=== PATIENT | male | born 1960 | race Hispanic/Latino ===

== ENCOUNTER 2017-11-07 21:39 | Observation (INO) | payer OTHER ==
--- OUTSIDE RECORDS SUMMARY | 2017-11-07 21:42 | XMS REPORT | Continuity of Care Document ---
:1960 Author Organization [facility] Address [address] [place] [address] Phone Unavailable Care Team Providers Name Role Phone MONIKA HALL MD Primary Care Physician Insurance Providers Guarantor Ernie Rooney Address [address] [place] [address] Payer [facility] Policy Number [id number] Subscriber's Name Ernie Rooney Relationship 18 Self / Same As Patient Effective Date 04 Advance Directives Directive Response Recorded Date/Time Does the patient have an advance directive? No 10/24/17 12:10am If yes, is advance directive on file with [facility]? No 10/24/17 12:10am If not on file with [facility] will patient provide a copy? No 10/24/17 12:10am Do you have a Directive to Physician? No 10/23/17 12:44pm Do you have a Medical Power of Weapons Mechanic? No 10/23/17 12:44pm Do you have an out of hospital Do Not Resuscitate Order? No 10/23/17 12:44pm Do you have any special needs we should be aware of? No 10/23/17 12:44pm Do you have a support person here with you today? Yes 10/23/17 12:44pm Did patient receive Notice of Privacy Practices? Yes 10/23/17 12:44pm Did patient receive patient rights and responsibilities? Yes 10/23/17 12:44pm Problems Medical Problem Onset Date Status CAD (coronary artery disease) Unknown Chest pain 12/19/2014 Acute DKA (diabetic ketoacidoses) Unknown Hyperglycemia Unknown Hypertension Unknown Pancreatitis Unknown Uncontrolled diabetes mellitus Unknown Medications Current Home Medications Medication Dose Units Route Directions Days Qty Instructions Start Date Aspirin 81 Mg 81 Mg Oral Daily 30 Days 10/26/17 Tab.chew Clopidogrel 75 Mg Oral Daily Bisulfate (Plavix) 75 Mg Tablet Cyclobenzaprine Hcl 10 Mg Oral Three Times A (Flexeril) 5 Mg Day as needed Tablet for Muscle Spasms Doxazosin Mesylate 8 Mg Oral Daily (Cardura) 8 Mg Tablet Fenofibrate 200 Mg 200 Mg Oral Bedtime Cap Gabapentin 800 Mg 800 Mg Oral Every 12 Hours Tablet Glipizide 5 Mg 10 Mg Oral Twice A Day Tablet Hydrocodone 1 Tab Oral Every 6 Hours Bit/Acetaminophen as needed for ([place] 10-325 Pain Tablet) 1 Each Tablet Insulin Regular, 30 Three Times 3 Human (Humulin R) Daily With 100 Unit/1 Ml Vial Meals Isosorbide 60 Mg Oral Daily 30 Tab Mononitrate (Isosorbide Mononitrate Er) 30 Mg Tab.er.24h Levothyroxine 25 Mcg Oral Daily 30 Tab Sodium 50 Mcg Tablet Lisinopril 2.5 Mg 2.5 Mg Oral Daily 30 Tab Tablet Metformin Hcl 1,000 Mg Oral Twice A Day (Glucophage) 1,000 Mg Tablet Methadone Hcl 5 Mg 5 Mg Oral Every 12 Hours Tablet Metoprolol Tartrate 25 Mg Oral Daily 25 Mg Tablet Nitroglycerin Oral As Needed (Nitrostat) 0.4 Mg Tab.subl Omeprazole 20 Mg 20 Mg Oral Daily Capsule. Simvastatin 80 Mg 80 Mg Oral Bedtime Tablet Tamsulosin Hcl 0.4 Daily Mg Cap.er.24h Tramadol Hcl 50 Mg Oral Four Times (Ultram) 50 Mg Daily as Tablet needed for Pain Venlafaxine Hcl 75 75 Mg Oral Daily 30 Tab Mg Tab Past Home Medications Medication Directions Ordered Status Albuterol Sulfate (Proair Hfa Twice A Day as needed for Discontinued Inhaler*) 8.5 Gm Inh, 1 Inh Shortness Of Breath Inhalation Albuterol Sulfate (Ventolin Hfa) As Needed as needed for Discontinued 18 Gm Hfa.aer.ad, 90 Mcg Shortness Of Breath Inhalation Clindamycin Hcl 150 Mg Capsule, Three Times A Day Discontinued 300 Mg Oral Cyclobenzaprine Hcl 10 Mg Tablet, Three Times A Day Discontinued 10 Mg Oral Dicyclomine Hcl 20 Mg Tablet, 20 Four Times Daily Discontinued Mg Oral Dicyclomine Hcl 10 Mg Capsule, 10 Twice A Day Discontinued Mg Oral Diflunisal (Dolobid) 500 Mg Twice A Day 01/17/14 Discontinued Tablet, 500 Mg Oral Gabapentin 300 Mg Capsule, 600 Mg Three Times A Day Discontinued Oral Ibuprofen 600 Mg Tablet, 800 Mg Three Times A Day as needed Discontinued Oral for Mild Pain (1-3) Insulin Glargine (Lantus) 100 Twice A Day Discontinued Units/Ml Ml, 90 Unit Subcutaneously Insulin Human Nph (Humulin N) 100 7AM &Hs Discontinued Units/Ml Ml, 40 Sub-Q Insulin Human Nph (Humulin N) 100 Discontinued Units/Ml Ml, 32 Units Subcutaneously Insulin Regular, Human (Humulin Three Times A Day Discontinued R) 100 Unit/1 Ml Vial, 45 Units Subcutaneously Insulin Regular, Human (Humulin Before Meals Discontinued R) 100 Unit/1 Ml Vial, 20 Units Sub-Q Insulin Regular, Human (Humulin Three Times A Day Discontinued R) 100 Unit/1 Ml Vial, 25 Unit Subcutaneously Isosorbide Mononitrate Daily Discontinued (Isosorbide Mononitrate Er) 30 Mg Tab.er.24h, 60 Mg Oral Methocarbamol (Robaxin) 500 Mg Three Times A Day Discontinued Tablet, 500 Mg Oral Metoprolol Tartrate 25 Mg Tablet, Daily Discontinued 25 Mg Oral Metronidazole 500 Mg Tablet, 500 Daily Discontinued Mg Oral Naloxone Hcl 0.4 Mg/1 Ml As Needed for Oversedation Discontinued Disp.syrin, 0.4 Mg Intraven Nitroglycerin (Nitrostat) 0.4 Mg As Needed for Chest Pain Discontinued Tab.subl, 0.4 Mg Sublingual Omeprazole 40 Mg Capsule.dr, Discontinued Ondansetron Hcl (Zofran*) 4 Mg Every 6 Hours as needed for 01/17/14 Discontinued Tablet, 4 Mg Sublingual Nausea Pantoprazole Sodium (Protonix) 40 Daily Discontinued Mg Tablet.dr, 40 Mg Oral Pregabalin (Lyrica) 150 Mg Twice A Day Discontinued Capsule, 150 Mg Oral Ranolazine (Ranexa) 500 Mg Tabsr, Twice A Day Discontinued 1000 Mg Oral Ranolazine (Ranexa) 500 Mg Tabsr, Twice A Day Discontinued 1000 Mg Oral Sucralfate 1 Gm Tablet, 1 Gm Oral Twice A Day Discontinued Temazepam (Restoril) 30 Mg Qhs Discontinued Capsule, 30 Mg Oral Tizanidine Hcl 4 Mg Capsule, 4 Mg Q8hprn Discontinued Oral Trazodone Hcl 50 Mg Tablet, 50 Mg Daily Discontinued Oral Venlafaxine Hcl 75 Mg Tab, 37.5 Daily Discontinued Mg Oral Venlafaxine Hcl 37.5 Mg Tablet, Twice A Day Discontinued 37.5 Tab Oral Zolpidem Tartrate (Ambien) 10 Mg Qhs Discontinued Tablet, 10 Mg Oral Social History Social History Problem Response Recorded Date/Time Onset Date Status Hx Psychiatric Problems Yes 10/24/2017 12:10am Not Applicable Not Applicable Hx Eating Disorder No 10/24/2017 12:10am Not Applicable Not Applicable Hx Substance Use Disorder No 10/24/2017 12:10am Not Applicable Not Applicable Hx Depression Yes 10/24/2017 12:10am Not Applicable Not Applicable Hx Alcohol Use Y - SOCIAL 10/24/2017 12:10am Not Applicable Not Applicable Hx Substance Use No 10/24/2017 12:10am Not Applicable Not Applicable Treatment Hx Physical Abuse No 10/24/2017 12:10am Not Applicable Not Applicable Smoking Status Start Date Stop Date Current every day smoker Hospital Discharge Instructions No hospital discharge instruction information available. Plan of Care Discharge Date 10/27/17 4:54pm Disposition TRANSFER CARE HOME Prescriptions See Medication Section Referrals pcp (Internal Medicine) Order Date: 5-7 Days Entered Date: 10/26/2017 7:44am JOHNIE GILL MD (Endocrinology) Order Date: 2 Weeks Entered Date: 10/26/2017 7:44am Address: [address] [place] [address] DAWSON LAKHANI MD (Neurology) Order Date: 2 Weeks Entered Date: 10/26/2017 7:44am Address: [address] [place] [address] [address] [place] [address] Functional Status Query Response Date Recorded FUNCTIONAL STATUS . October 24, 2017 4:24pm Ambulation Ability Independent October 24, 2017 12:14am Toileting Ability Minimum Assistance October 26, 2017 8:09pm Allergies, Adverse Reactions, Alerts Allergen Type Severity Reaction Status Last Updated No Known Drug Allergies Allergy Unknown Active 01/04/17 Immunizations No immunization information available. Vital Signs Acute Vital Signs Vital Response Date/Time Temperature (Fahrenheit) 97.9 degrees F (97.6 - 99.5) 10/27/2017 4:01pm Pulse Pulse Rate (adult) 64 bpm (60 - 90) 10/27/2017 4:01pm Respiratory Rate 18 bpm (12 - 24) 10/27/2017 4:01pm Blood Pressure 102/52 mm Hg 10/27/2017 4:01pm Height 5 ft 7 in 10/23/2017 1:19pm Weight 190 lb 10/23/2017 1:19pm Body Mass Index 29.8 kg/m^2 10/24/2017 12:10am Results Laboratory Results Test Name Result Units Flags Reference Collection Result Comments Date/Time Date/Time Urine Color YELLOW YELLOW 03/05/2017 03/05/2017 4:27am 4:46am Urine Clarity CLEAR CLEAR 03/05/2017 03/05/2017 4:27am 4:46am Urine Specific 1.010 1.010-1.02 03/05/2017 03/05/2017 [place] 5 4:27am 4:46am Urine pH 8 H 5 - 7 03/05/2017 03/05/2017 4:27am 4:46am Urine NEGATIVE NEGATIVE 03/05/2017 03/05/2017 Leukocyte 4:27am 4:46am Esterase Urine Nitrite NEGATIVE NEGATIVE 03/05/2017 03/05/2017 4:27am 4:46am Urine Protein NEGATIVE NEGATIVE 03/05/2017 03/05/2017 4:27am 4:46am Urine Glucose NEGATIVE NEGATIVE 03/05/2017 03/05/2017 (UA) 4:27am 4:46am Urine Ketones NEGATIVE NEGATIVE 03/05/2017 03/05/2017 4:27am 4:46am Urine 0.2 mg/dL 0.2 - 1 03/05/2017 03/05/2017 Urobilinogen 4:27am 4:46am Urine NEGATIVE NEGATIVE 03/05/2017 03/05/2017 Bilirubin 4:27am 4:46am Urine Blood 2+ H NEGATIVE 03/05/2017 03/05/2017 4:27am 4:46am Urine WBC NONE /HPF 0-5 03/05/2017 03/05/2017 4:27am 5:09am Urine RBC NONE /HPF 0-5 03/05/2017 03/05/2017 4:27am 5:09am Urine Bacteria NONE /HPF NONE 03/05/2017 03/05/2017 4:27am 5:09am Urine NONE /LPF NONE 03/05/2017 03/05/2017 Epithelial 4:27am 5:09am Cells Magnesium 1.5 MG/DL 1.3-2.1 03/07/2017 03/07/2017 Level 6:05am 6:52am Direct 0.2 mg/dL 0.0-5.0 03/07/2017 03/07/2017 Bilirubin 6:50am 1:47pm White Blood 6.06 x10e3/uL 4.8-10.8 10/27/2017 10/27/2017 Count 8:01am 8:12am Red Blood 4.22 x10e6/uL L 4.3-5.7 10/27/2017 10/27/2017 Count 8:01am 8:12am Hemoglobin 12.5 g/dL L 14.0-18.0 10/27/2017 10/27/2017 8:01am 8:12am Hematocrit 36.2 % L 38.2-49.6 10/27/2017 10/27/2017 8:01am 8:12am Mean 85.8 fL 81-99 10/27/2017 10/27/2017 Corpuscular 8:01am 8:12am Volume Mean 29.6 pg 28-32 10/27/2017 10/27/2017 Corpuscular 8:01am 8:12am Hemoglobin Mean 34.5 g/dL 31-35 10/27/2017 10/27/2017 Corpuscular 8:01am 8:12am Hemoglobin Concent Red Cell 14.2 % 11.7-14.4 10/27/2017 10/27/2017 Distribution 8:01am 8:12am Width Platelet Count 263 x10e3/uL 140-360 10/27/2017 10/27/2017 8:01am 8:12am Neutrophils 51.2 % 38.7-80.0 10/27/2017 10/27/2017 (%) (Auto) 8:01am 8:12am Lymphocytes 33.7 % 18.0-39.1 10/27/2017 10/27/2017 (%) (Auto) 8:01am 8:12am Monocytes (%) 9.1 % 4.4-11.3 10/27/2017 10/27/2017 (Auto) 8:01am 8:12am Eosinophils 4.8 % 0.0-6.0 10/27/2017 10/27/2017 (%) (Auto) 8:01am 8:12am Basophils (%) 0.7 % 0.0-1.0 10/27/2017 10/27/2017 (Auto) 8:01am 8:12am IM 0.5 % 0.0-1.0 10/27/2017 10/27/2017 GRANULOCYTES % 8:01am 8:12am Neutrophils # 3.1 2.1-6.9 10/27/2017 10/27/2017 (Auto) 8:01am 8:12am Lymphocytes # 2.0 1.0-3.2 10/27/2017 10/27/2017 (Auto) 8:01am 8:12am Monocytes # 0.6 0.2-0.8 10/27/2017 10/27/2017 (Auto) 8:01am 8:12am Eosinophils # 0.3 0.0-0.4 10/27/2017 10/27/2017 (Auto) 8:01am 8:12am Basophils # 0.0 0.0-0.1 10/27/2017 10/27/2017 (Auto) 8:01am 8:12am Absolute 0.03 x10e3/uL 0-0.1 10/27/2017 10/27/2017 Immature 8:01am 8:12am Granulocyte (auto Prothrombin 13.6 seconds 11.9-14.5 10/23/2017 10/23/2017 Time 1:30pm 2:13pm Prothromb Time 1.13 10/23/2017 10/23/2017 Oral Anticoagulant Therapy INR Values: International 1:30pm 2:13pm 1. Low Intensity Therapy 1.5 - 2.0 Ratio 2. Moderate Intensity Therapy 2.0 - 3.0 3. High Intensity Therapy(1) 2.5 - 3.5 4. High Intensity Therapy(2) 3.0 - 4.0 5. Panic Value INR > 5.0 Activated 27.6 seconds 23.8-35.5 10/23/2017 10/23/2017 Partial 1:30pm 2:13pm Thromboplast Time D-Dimer 0.49 ug/mLFEU H 0.00-0.45 10/23/2017 10/23/2017 Quantitative 1:30pm 2:02pm (PE/DVT) Urine Opiates NEGATIVE NEGATIVE 10/23/2017 10/23/2017 Screen 2:01pm 4:18pm Urine NEGATIVE NEGATIVE 10/23/2017 10/23/2017 Barbiturates 2:01pm 4:18pm Screen Urine NEGATIVE NEGATIVE 10/23/2017 10/23/2017 Phencyclidine 2:01pm 4:18pm Screen Urine NEGATIVE NEGATIVE 10/23/2017 10/23/2017 Amphetamines 2:01pm 4:18pm Screen Urine NEGATIVE NEGATIVE 10/23/2017 10/23/2017 Methamphetamin 2:01pm 4:18pm es Screen Urine NEGATIVE NEGATIVE 10/23/2017 10/23/2017 Benzodiazepine 2:01pm 4:18pm s Screen Urine Cocaine NEGATIVE NEGATIVE 10/23/2017 10/23/2017 Screen 2:01pm 4:18pm Urine NEGATIVE NEGATIVE 10/23/2017 10/23/2017 THESE RESULTS ARE FOR MEDICAL TREATMENT ONLY Cannabinoids 2:01pm 4:18pm *THIS REPORT CONTAINS UNCONFIRMED SCREENING RESULTS* Screen POSITIVE RESULTS WILL BE CONFIRMED BY REFERENCE LAB UPON REQUEST CUT-OFF DRUG CLASS CONCENTRATION ng/mL Amphetamines 1000 Methamphetamines 1000 Cocaine 300 Opiate 300 Phencyclidine 25 Cannabinoid 50 Barbiturates 300 Benzodiazepine 300 Methadone 300 Urine NEGATIVE NEGATIVE 10/23/2017 10/23/2017 THESE RESULTS ARE FOR MEDICAL TREATMENT ONLY Methadone 2:01pm 4:18pm *THIS REPORT CONTAINS UNCONFIRMED SCREENING RESULTS* Screen POSITIVE RESULTS WILL BE CONFIRMED BY REFERENCE LAB UPON REQUEST CUT-OFF DRUG CLASS CONCENTRATION ng/mL Amphetamines 1000 Methamphetamines 1000 Cocaine Metabolite 300 Opiate 300 Phencyclidine 25 Cannabinoid 50 Barbiturates 300 Benzodiazepine 300 Methadone 300 Sodium Level 139 mmol/L 136-145 10/27/2017 10/27/2017 8:01am 8:31am Potassium 4.0 mmol/L 3.5-5.1 10/27/2017 10/27/2017 Level 8:01am 8:31am Chloride Level 106 mmol/L 98-107 10/27/2017 10/27/2017 8:01am 8:31am Carbon Dioxide 25 mmol/L 22-29 10/27/2017 10/27/2017 Level 8:01am 8:31am Anion Gap 12.0 mmol/L 8-16 10/27/2017 10/27/2017 8:01am 8:31am Blood Urea 7 mg/dL 7-26 10/27/2017 10/27/2017 Nitrogen 8:01am 8:31am Creatinine 0.72 mg/dL 0.72-1.25 10/27/2017 10/27/2017 8:01am 8:31am BUN/Creatinine 10 6-10/27/2017 10/27/2017 Ratio 8:01am 8:31am Estimat > 60 ML/MIN 60- 10/27/2017 10/27/2017 Ranges were taken from the National Kidney Disease Education Glomerular 8:01am 8:31am Program and the [employer] literature. Filtration Rate Reference ranges: 60 or greater: Normal 16-59 (for 3 consecutive months): Chronic kidney disease 15 or less: Kidney failure Glucose Level 195 mg/dL H 74-118 10/27/2017 10/27/2017 8:01am 8:31am Calcium Level 9.0 mg/dL 8.4-10.2 10/27/2017 10/27/2017 8:01am 8:31am Bedside 155 mg/dL H 70-120 10/27/2017 10/27/2017 Meter ID: Glucose 11:33am 11:47am [id number] Hemoglobin A1c 12.6 % H 4.0-7.0 10/24/2017 10/24/2017 Percent 6:10am 8:04am Total 0.6 mg/dL 0.2-1.2 10/23/2017 10/23/2017 Bilirubin 1:30pm 2:10pm Aspartate 36 IU/L H 5-34 10/23/2017 10/23/2017 Amino Transf 1:30pm 2:10pm (AST/SGOT) Alanine 34 IU/L 0-55 10/23/2017 10/23/2017 Aminotransfera 1:30pm 2:10pm se (ALT/SGPT) Total Protein 7.3 g/dL 6.5-8.1 10/23/2017 10/23/2017 1:30pm 2:10pm Albumin 4.0 g/dL 3.5-5.0 10/23/2017 10/23/2017 1:30pm 2:10pm Globulin 3.3 g/dL 2.3-3.5 10/23/2017 10/23/2017 1:30pm 2:10pm Albumin/Globul 1.2 0.8-2.0 10/23/2017 10/23/2017 in Ratio 1:30pm 2:10pm Alkaline 109 IU/L 40-150 10/23/2017 10/23/2017 Phosphatase 1:30pm 2:10pm Triglycerides 200 MG/DL H 0-149 10/24/2017 10/24/2017 Level 6:10am 6:57am Cholesterol 239 MD/DL H 0-199 10/24/2017 10/24/2017 Less than 200 mg/ dL Low Risk Level 6:10am 6:57am 201 - 239 mg/dL Borderline Risk 240 mg/dl and greater High Risk LDL 164 MG/DL H 60-130 10/24/2017 10/24/2017 Cholesterol 6:10am 6:57am HDL 35 MG/DL L 40-60 10/24/2017 10/24/2017 Cholesterol 6:10am 6:57am Cholesterol/HD 6.8 H 3.9-4.7 10/24/2017 10/24/2017 L Ratio 6:10am 6:57am B-Type 92.8 pg/mL 0-100 10/23/2017 10/23/2017 Natriuretic 1:30pm 2:10pm Peptide Creatine 297 IU/L H 30-200 10/24/2017 10/24/2017 Kinase 2:44pm 3:07pm Creatine 3.90 ng/mL 0-5.0 10/24/2017 10/24/2017 Kinase MB 2:44pm 3:14pm Troponin I 0.054 ng/mL 0-0.300 10/24/2017 10/24/2017 2:44pm 3:14pm Amylase Level 126 U/L H 25-125 10/23/2017 10/23/2017 1:30pm 2:10pm Lipase 98 U/L H 8-78 10/23/2017 10/23/2017 1:30pm 2:10pm Procedures Procedure Status Date Provider(s) US abdomen complete Active 03/08/17 SCOTT AMIN MD Computed tomography of brain without radiopaque Active 04/04/17 JACQUELYN MONTES DE OCA MD contrast Computed tomography of cervical spine without Active 04/04/17 JACQUELYN MONTES DE OCA MD contrast CT angiography of chest Active 10/23/17 ARLETH WAHL MD Computed tomography of brain without radiopaque Active 10/23/17 ARLETH WAHL MD contrast Computed tomography angiography of brain Active 10/24/17 TERA COX MD Encounters Encounter Location Arrival/Admit Date Discharge/Depart Date Attending Provider Discharged [facility] 10/23/17 5:29pm 10/27/17 4:54pm TERA COX Inpatient Patients [facility] Dep[facility] 04/03/17 11:17pm 04/04/17 3:53am JACQUELYN MONTES DE OCA Emergency Room Patients [facility] Discharged [facility] 03/05/17 6:54am 03/09/17 10:58am NICHELLE PALACIOS Inpatient (obs) Patients [facility] Discharged [facility] 01/04/17 10:33am 01/05/17 6:56pm NICHELLE PALACIOS Inpatient (obs) Patients [facility]
--- OUTSIDE RECORDS SUMMARY | 2017-11-07 21:42 | XMS REPORT ---
:1960 Author Organization [facility] Address [address] [address] Care Team Providers Name Role Phone TERA COX Unavailable Unavailable JACQUELYN MONTES DE OCA Unavailable Unavailable NICHELLE PALACIOS Unavailable Unavailable Problems This patient has no known problems. Allergies, Adverse Reactions, Alerts This patient has no known allergies or adverse reactions. Medications This patient has no known medications. Results Test Description Test Time Test Comments Text Results Atomic Results Result Comments CTA BRAIN [place] [address] Patient Name: FAITH VANCE MR #: [id number] : 1960 Age/Sex: 57/M Req #: [id number] Adm Physician: TERA COX MD Ordered by: TERA COX MD Report #: [id number] Location: [facility] Room/Bed: [place] [address] Procedure: [id number] CT/CTA BRAIN Exam Date: 10/24/17 Exam Time: 1541 REPORT STATUS: Signed Intracranial CTA History: Weakness, left-sided numbness, possible CVA, Comparison studies:Head CT of 10/23/2017. Technique: Axial images were obtained from the skull base to the vertex. Coronal and sagittal images reconstructed from the axial data. Intravenous contrast: 100 cc of Omnipaque 300. Findings: Internal carotid arteries: Approximately 40-50% stenosis at the right paraophthalmic segment due to hard and soft plaque. Greater than 50% stenosis in the left paraophthalmic segment due to hard and soft plaque. Nonstenotic hard plaque in the left cavernous segment. Middle cerebral arteries: Patent, no abnormalities in the M1 and proximal M2 segments. Anterior cerebral arteries: Patent, no abnormalities in the A1 and A2 segments. Vertebral arteries: Calcified plaque bilaterally result in approximately 50% stenosis. Basilar artery: Patent, no abnormalities. Posterior cerebral arteries: Patent, no abnormalities. Anatomical variants: Anterior communicating artery: Patent. Posterior communicating arteries: Hypoplastic bilaterally. Vertebral arteries: Codominant. Incidental findings: Mild mucosal thickening in the right maxillary sinus with small bilateral maxillary sinus retention cysts. IMPRESSION: 1. Atherosclerosis in the bilateral carotid siphons with approximately 50-60% stenosis in the left paraophthalmic segment and approximately 40-50% stenosis in the right paraophthalmic segment. 2. Atherosclerosis in the vertebral arteries with approximately 50% stenosis bilaterally in the proximal segments. 3. No additional intracranial CTA abnormalities. Signed by: Dr. Ana Maria Arteaga M.D. on 10/24/2017 4:33 PM Dictated By: ANA MARIA ARTEAGA MD 1634 Transcribed By: ANDREE on 10/24/17 1633 COPY TO: TERA COX MD CT BRAIN [place] [address] Patient Name: FAITH VANCE MR #: [id number] : 1960 Age/Sex: 57/M Req #: [id number] Adm Physician: Ordered by: ARLETH WAHL MD Report #: [id number] Location: Room/Bed: Procedure: CT/CT BRAIN WO Exam Date: 10/23/17 Exam Time: 1545 REPORT STATUS: Signed Exam: Head CT without contrast History: Left-sided weakness Comparison studies: Head CT 04/04/2017. Technique: Axial images were obtained from the skull base to the vertex. Coronal and sagittal images reconstructed from the axial data. Intravenous contrast: None Findings: Scalp: No abnormalities. Bones: No fractures, blastic or lytic lesions. Brain sulci: Appropriate for age. Ventricles: Normal in size and configuration. No hydrocephalus. Extra-axial spaces: No masses, no fluid collection. Parenchyma: No mass, acute hemorrhage or acute or chronic cortical vascular insults. No abnormal densities. Sellar/suprasellar region: No abnormalities. Craniocervical junction: Patent foramen magnum. No Chiari one malformation. Incidental findings: Atherosclerotic calcifications in the carotid siphons and intradural vertebral arteries. IMPRESSION: 1. No acute intracranial abnormalities. 2. No changes from the previous head CT of 04/04/2017. Findings discussed with Dr. Silvana manzo at 4:36 PM on 10/23/2021. Signed by: Dr. Ana Maria Arteaga M.D. on 10/23/2017 4:43 PM Dictated By: ANA MARIA ARTEAGA MD 42 Transcribed By: ANDREE on 10/23/171642 COPY TO: ARLETH WAHL MD CTA CHEST [place] [address] Patient Name: FAITH VANCE MR #: [id number] : 1960 Age/Sex: 57/M Req #: [id number] Adm Physician: Ordered by: ARLETH WAHL MD Report #: [id number] Location: Room/Bed: Procedure: [id number] CT/CTA CHEST Exam Date: 10/23/17 Exam Time: 1545 REPORT STATUS: Signed EXAM: CTA Chest WITH and without contrast. DATE: 10/23/2017 1:23 PM INDICATION: Chest pain COMPARISON: None TECHNIQUE: CT angiogram of the chest was obtained before and after the administration of IV contrast. Prospective gating was performed. Images reviewed in the axial, coronal, and sagittal planes. 3D reconstructions performed on off-line workstation. IV Contrast: 100 mL Isovue-370. Total DLP: 1960 mGy*cm Est. Eff. Dose DLP x 0.015 x size factor mSv (CTDIvol has been reviewed and is below limits set by [facility]). FINDINGS: Lines and Tubes: Pacemaker with leads terminating right atrium and right ventricular apex. Lower Neck: The visualized thyroid gland is grossly unremarkable with no suspicious or significant nodule identified. Heart and Great Vessels: The pulmonary artery measure 23 mm. No pericardial effusion present. Moderate coronary artery vascular calcifications are present. No central pulmonary embolus is identified. Aortic Annulus: 26 mm. Sinus of Valsalva: 38 mm. Ascending Aorta at level of PA: 30 mm. Mid Arch: 28 mm. Proximal Descendin mm. Mid Descendin mm. Distal Descendin mm. Other: No intramural hematoma or aortic dissection identified. Patent left subclavian artery stent incidentally noted. Lymph Nodes: No suspicious adenopathy. Lungs: No pneumothorax or pleural effusion. Minimal alveolar opacity right lung base. Groundglass opacities medial right lung base adjacent to prominent osteophytes consistent with benign friction phenomenon. Upper abdomen: Cholecystectomy clips and hepatic steatosis partially visualized. Bones and Soft Tissues: Sternotomy wires and moderate degenerative changes spine. IMPRESSION: 1. No aortic dissection. 2. Minimal opacity right lung base, nonspecific. Pneumonitis possible. 3. Hepatic steatosis. Signed by: Dr. Oren Irizarry MD on 10/23/2017 4:21 PM Dictated By: OREN IRIZARRY MD 1621 Transcribed By: ANDREE on 10/23/17 1621 COPY TO: ARLETH WAHL MD CHEST [address] (PORTABLE) [place], [place] [address] Patient Name: FAITH VANCE MR #: [id number] : 1960 Age/Sex: 57/M Req #: [id number] Adm Physician: Ordered by: ARLETH WAHL MD Report #: [id number] Location: ER Room/Bed: Procedure: [id number] DX/CHEST SINGLE (PORTABLE) Exam Date: 10/23/17 Exam Time: 1420 REPORT STATUS: Signed PROCEDURE: A single AP view of the chest. COMPARISON: Chest x-ray 04/04/2017. INDICATIONS: LEFT SIDED NUMBNESS, WEAKNESS. HEADACHE FINDINGS: Lines/tubes: Left-sided pacemaker with 2 intact wires. Median sternotomy wires are present. Lungs: The lungs are well inflated and clear. There is no evidence of pneumonia or pulmonary edema. Pleura: There is no pleural effusion or pneumothorax. Heart and mediastinum: The heart and the mediastinum are unremarkable. Bones: No acute bony abnormality. IMPRESSION: No acute cardiopulmonary disease. Dictated by: Elie Barfield M.D. on 10/23/2017 at 14:43 Electronically approved by: Elie Barfield M.D. on 10/23/2017 at 14:43 Dictated By: ELIE BARFIELD MD 1443 Transcribed By: ANIBAL on 10/23/17 1443 COPY TO: ARLETH WAHL MD CT BRAIN WO [facility] [address] [place] [id number] Patient Name: FAITH VANCE MR #: [id number] : 1960 Age/Sex: 56/M Req #: [id number] Adm Physician: Ordered by: JACQUELYN MONTES DE OCA MD Report #: [id number] Location: ER Room/Bed: Procedure: [id number] CT/CT BRAIN WO Exam Date: Exam Time: REPORT STATUS: Signed EXAMINATION: Head CT without contrast. HISTORY:Status post fall. COMPARISON:Report of CT brain from 11/08/2008. TECHNIQUE: Multidetector axial images were obtained from the foramen magnum to the vertex without contrast. The images were reconstructed using brain and bone algorithms. Thin section brain images were reformatted into coronal and sagittal planes. Intravenous contrast: None IMAGE QUALITY: Acceptable. FINDINGS: Skull-scalp: No abnormality. Parenchyma: No abnormal density. No acute hemorrhage, mass or acute major vascular territorial infarct. Arteries: No density suggestive of thrombosis. Dural sinuses: No abnormal density suggestive of thrombosis. Ventricles: No hydrocephalus or displacement. Extra-axial spaces: No abnormal density. Brain volume: Normal for age. Craniocervical junction: No mass, Chiari malformation, or basilar invagination. Sella: No mass. Paranasal/mastoid sinuses: Mild mucosal thickening in right maxillary sinus. IMPRESSION: No intracranial abnormality. Signed by: Dr. Seema Jean M.D. on 04/04/2017 2:02 AM Dictated By: SEEMA JEAN MD 1 Transcribed By: ANDREE on 04/04/17201 COPY TO: JACQUELYN MONTES DE OCA MD CT CERVICAL SPINE [place] [address] Patient Name: FAITH VANCE MR #: [id number] : 1960 Age/Sex: 56/M Req #: [id number] Adm Physician: Ordered by: JACQUELYN MONTES DE OCA MD Report #: [id number] Location: ER Room/Bed: Procedure: [id number] CT/CT CERVICAL SPINE WO Exam Date: Exam Time: REPORT STATUS: Signed History: Status post fall. Comparison studies: Report of CT cervical spine from 11/16/2008. Technique: Axial images were obtained through the cervical region.. Coronal and sagittal images reconstructed from the axial data.. Intravenous contrast: None Findings: Fractures: None. Soft tissue injuries: None. Atlantoaxial articulation: Intact. Alignment: Normal lordosis. No scoliosis. Cervicomedullary junction: No abnormalities. The foramen magnum is patent. Soft tissues: No abnormalities. Vertebrae: No fractures, infection or neoplasm. Degenerative changes: C3-C4: Posterior discussed effect complex without canal stenosis. C4-C5: Posterior disc osteophyte complex results in mild canal stenosis. C5-C6: Posterior disc osteophyte complex and calcification of the thickened ligamentum flavum results in mild canal stenosis. Posterior disc osteophyte complex and ossification of the posterior longitudinal ligament results in mild canal stenosis. No significant foraminal stenosis.. IMPRESSION: 1. No acute cervical spine abnormalities. 2. Ligament, spinal cord and or vascular abnormalities cannot be excluded on the basis of this examination. 3. Mild cervical spondylosis as detailed above. Signed by: Dr. Seema Jean M.D. on 04/04/2017 2:07 AM Dictated By: SEEMA JEAN MD 6 Transcribed By: ANDREE on 04/04/17206 COPY TO: JACQUELYN MONTES DE OCA MD [place] [address] Patient Name: FAITH VANCE MR #: [id number] : 1960 Age/Sex: 56/M Req #: [id number] Adm Physician: Ordered by: JACQUELYN MONTES DE OCA MD Report #: [id number] Location: ER Room/Bed: Procedure: [id number] DX/CHEST SINGLE (PORTABLE) Exam Date: 04/04/17 Exam Time: 0123 REPORT STATUS: Signed CHEST SINGLE (PORTABLE), 04/04/2017 12:35 AM Technique: CHEST SINGLE (PORTABLE) Comparison: 03/05/2017, 01/04/2017 Clinical history: Fall, slipped in shower, pain Findings: See Impression Impression: 1. Stable mildly enlarged cardiomediastinal silhouette status post sternotomy with broken superior sternotomy wire. 2. No acute abnormality of the lungs or pleural spaces. 3. No acute displaced fracture seen on portable view. Signed by: Dr Marco A Talbot MD on 04/04/2017 2:12 AM Dictated By: MARCO A TALBOT MD 1 Transcribed By: ANDREE on 04/04/17211 COPY TO: JACQUELYN MONTES DE OCA MD [facility] RIGHT 2-[address] (+/- PELVIS) [place] [address] Patient Name: FAITH VANCE MR #: [id number] : 1960 Age/Sex: 56/M Req #: [id number] Adm Physician: Ordered by: JACQUELYN MONTES DE OCA MD Report #: [id number] Location: ER Room/Bed: Procedure: DX/HIP RIGHT 2-3 VW (+/- PELVIS) Exam Date: Exam Time: REPORT STATUS: Signed HIP RIGHT 2-3 VW (+/- PELVIS) Comparison: None Clinical history: Fall, hip pain Findings: Mild bilateral hip degenerative changes with prominent acetabular osseous coverage of the femoral head and femoral head neck junction. No acute fracture or dislocation. Clips overlie the right inguinal region. Partially imaged lumbar hardware. Vascular calcifications. Impression: No acute bony abnormality Signed by: Dr Marco A Talbot MD on 04/04/2017 2:14 AM Dictated By: MARCO A TALBOT MD 3 Transcribed By: ANDREE on 04/04/17213 COPY TO: JACQUELYN MONTES DE OCA MD SP LUMBAR, [address] COMPLETE MIN 4VW [place] [address] Patient Name: FAITH VANCE MR #: [id number] : 1960 Age/Sex: 56/M Req #: [id number] Adm Physician: Ordered by: JACQUELYN MONTES DE OCA MD Report #: [id number] Location: ER Room/Bed: Procedure: DX/SP LUMBAR, COMPLETE MIN 4VW Exam Date: 04/04/17 Exam Time: 0108 REPORT STATUS: Signed SP LUMBAR, COMPLETE MIN 4VW Comparison: CT 08/10/2016 Clinical history: Status post fall with lower back pain Findings: Postoperative changes from posterior fusion from left L4 vertebral body to L5-S1 facets and posterior decompression. No evidence of hardware loosening or fracture. Alignment is grossly intact. Unchanged minimal anterior wedging at T12, L1. Scattered degenerative changes, with moderate to severe L2-L4 facet arthrosis, degenerative disc disease and posterior disc osteophyte at L2-3. Impression: No acute bony abnormality Signed by: Dr Marco A Talbot MD on 04/04/2017 2:28 AM Dictated By: MARCO A TALBOT MD 7 Transcribed By: ANDREE on 04/04/17227 COPY TO: JACQUELYN MONTES DE OCA MD US ABDOMEN [place] [address] Patient Name: FAITH VANCE MR #: [id number] : 1960 Age/Sex: 56/M Req #: [id number] Adm Physician: NICHELLE PALACIOS MD Ordered by: SCOTT AMIN MD Report #: [id number] Location: [facility] Room/Bed: [place] [address] Procedure: [id number] US/US ABDOMEN COMPLETE Exam Date: 03/08/17 Exam Time: 912 REPORT STATUS: Signed PROCEDURE: ABDOMINAL ULTRASOUND COMPARISON: None. INDICATIONS: Elevated LFTs FINDINGS: Liver: 15.2 cm. Increased hepatic parenchymal echogenicity. No focal mass. Main portal vein: 1.1 cm. Hepatopedal flow. Gallbladder: Cholecystectomy. Common Bile Duct: 5.0 mm. No echogenic filling defect. Sonographic Hoang's sign: Negative. Right kidney: 12.8 cm. No solid or cystic mass, echogenic calculi, or hydronephrosis. Normal parenchymal echogenicity. Focal well-circumscribed 2.8 x 2.5 x 2.8 cm anechoic regions present in the interpolar region of the right kidney. Left kidney: 12.4 cm. No solid or cystic mass, echogenic calculi, or hydronephrosis. Normal parenchymal echogenicity. Spleen: 10.0 cm. No focal mass. Pancreas: The pancreas was insufficiently visualized for comment secondary to overlying bowel gas and increased body habitus. Inferior vena cava: Normal. Aorta: Normal. Ascites: None. CONCLUSION: 1. No acute sonographic abnormality. 2. Hepatic steatosis. 3. Right renal simple cyst. Dictated by: Brooke Bashir M.D. on 03/08/2017 at 10:40 Electronically approved by: Brooke Bashir M.D. on 03/08/2017 at 10:40 Dictated By: BROOKE BASHIR MD 1040 Transcribed By: ANIBAL on 03/08/17 1040 COPY TO: SCOTT AMIN MD CHEST SINGLE [address] (PORTABLE) [place] [address] Patient Name: FAITH VANCE MR #: [id number] : 1960 Age/Sex: 56/M Req #: [id number] Adm Physician: Ordered by: JACQUELYN MONTES DE OCA MD Report #: [id number] Location: ER Room/Bed: Procedure: [id number] DX/CHEST SINGLE (PORTABLE) Exam Date: 03/05/17 Exam Time: 0445 REPORT STATUS: Signed CHEST SINGLE (PORTABLE), 03/05/2017 4:15 AM Technique: CHEST SINGLE (PORTABLE) Comparison: 01/04/2017 Clinical history: Chest pain Findings: Status post median sternotomy with broken superior sternotomy wire. See impression. Impression: Low lung volumes result in accentuation of the cardiomediastinal silhouette and bibasilar vascular crowding. No pleural effusion or pneumothorax. Signed by: Dr Marco A Talbot MD on 03/05/2017 5:35 AM Dictated By: MARCO A TALBOT MD 4 Transcribed By: ANDREE on 03/05/17534 COPY TO: JACQUELYN MONTES DE OCA MD
--- NOTE | 2017-11-07 22:09 | RAD REPORT ---
EXAM DESCRIPTION: CT - Head Brain Wo Cont - 11/07/2017 9:58 pm CLINICAL HISTORY: Headache and weakness. Prior CVA COMPARISON: 2012 TECHNIQUE: Computed axial tomography of the head was obtained. IV contrast was not requested. All CT scans are performed using dose optimization technique as appropriate and may include automated exposure control or mA/KV adjustment according to patient size. FINDINGS: An intracranial bleed is not seen . The ventricles are normal in caliber. No extra-axial fluid collection is noted. Fluid within the sinuses/ mastoids is not seen. IMPRESSION: No acute intracranial abnormality is seen. If patient's symptoms persist MRI of the bra in would be recommended.
[2017-11-07 22:28] LABS: Absolute Lymphocytes (CBC) 2.2 K/uL (0.7-4.9); Absolute Monocytes 0.5 K/uL (0.1-1.3); Basophils % 0.6 % (0-1.3); Eosinophils % 4.3 % (0-4.4); Hematocrit 45.5 % (39.6-49.0); MCH 29.8 pg (27.0-35.0); MCV 86.8 fL (80-100); MPV 8.6 fL (7.6-11.3); Monocytes % 5.8 % (3.3-12.3); RBC Red Blood Cell Count 5.25 M/uL (4.33-5.43)
[2017-11-07 22:32] LABS: Protime INR 0.99
[2017-11-07 22:47] LABS: ALT/SGPT 32 U/L (12-78); AST/SGOT 24 U/L (15-37); Albumin 3.8 g/dL (3.4-5.0); Alkaline Phosphatase 134 U/L (45-117); BUN Blood Urea Nitrogen 11 mg/dL (7-18); Bicarbonate 25 mmol/L (21-32); Bilirubin Direct < 0.1 mg/dL (0-0.2); Bilirubin Total 0.4 mg/dL (0.2-1.0); CKMB Creatine Kinase MB 1.9 ng/mL (0.3-3.6); Creatine Phosphokinase 110 U/L (39-308); Glucose Level 400 mg/dL (74-106); Magnesium 1.8 mg/dL (1.8-2.4); Potassium 3.9 mmol/L (3.5-5.1); Protein, Total 7.7 g/dL (6.4-8.2); Sodium Level 132 mmol/L (136-145)
[2017-11-07] MEDS ORDERED: ASPIRIN 81 MG CHEWABLE TABLET ONE (22:54)
[2017-11-07] MEDS ORDERED: INSULIN -REGULAR HUMAN 50 UNIT/0.5 ML ML ONE (22:55)
[2017-11-07] MEDS ORDERED: NA CHLORIDE 0.9% 1,000 ML ONE (22:55)
[2017-11-07] MEDS ORDERED: FOLIC ACID 5 MG/ML VIAL ONE (22:56)
[2017-11-07] MEDS ORDERED: MORPHINE 4 MG/ML SYR ONE (23:25)
[2017-11-07] MEDS ORDERED: ONDANSETRON 4 MG/2 ML VIAL ONE (23:25)
--- NOTE | 2017-11-08 00:07 | EDPHYS ---
Physician Documentation [facility] Name: Ernie Rooney Age: 57 yrs Sex: Male : 1960 Arrival Date: 11/07/2017 Time: 21:40 Bed 3 Private MD: ED Physician Jameson Mejia HPI: 11/07 22:00 This 57 yrs old Male presents to ER via Ambulatory with complaints of S/S of cp Possible Stroke. 22:00 The patient's problem is reported as weakness, in the left upper extremity, in the left cp lower extremity. 22:00 Onset: The symptoms/episode began/occurred 1 hour(s) ago. Duration: The episode is cp continuous. Associated signs and symptoms: Pertinent positives: chest pain, headache. Severity of symptoms: in the emergency department the symptoms are unchanged despite home interventions. Patient's baseline: Neuro: alert and fully oriented, Motor: left-sided weakness, Speech: normal, The patient has a previous history of CVA, 2 weeks ago while in [facility] in which patient received tpa. Patient reports similar presentation with left side weakness. Historical: - Allergies: 22:20 No Known Allergies; fc - Home Meds: 22:20 tizanidine 4 mg oral cap 1 cap 3 times per day [Active]; tramadol 50 mg Oral tab 1 tab fc three times a day [Active]; doxazosin 8 mg Oral tab 1 tab once daily [Active]; gabapentin 800 mg oral tab 1 tab twice a day [Active]; Protonix 40 mg oral TbEC 1 tab once daily [Active]; tamsulosin 0.4 mg Oral cp24 1 cap once daily [Active]; simvastatin 80 mg Oral tab daily [Active]; metformin 1,000 mg Oral tab 1 tab 2 times per day [Active]; glipizide 10 mg Oral tab 2 tabs 2 times per day [Active]; levothyroxine 25 mcg tab 1 tab once daily [Active]; fenofibrate 200 mg Oral once daily [Active]; omeprazole 20 mg Oral cpDR 1 cap once daily [Active]; venlafaxine 75 mg oral tab 1 tab 2 times per day [Active]; clopidogrel 75 mg Oral tab 1 tab once daily [Active]; - PMHx: 22:20 Myocardial infarction; GERD; Hypertension; Back pain; Diabetes - NIDDM; High fc Cholesterol; Hypothyroidism; Hyperlipidemia; Depression; - PSHx: 22:20 pacemaker; back surg; fc - Immunization history:: Last tetanus immunization: unknown. - Social history:: Smoking status: Patient/guardian denies using tobacco. - Ebola Screening: : Patient negative for fever greater than or equal to 101.5 degrees Fahrenheit, and additional compatible Ebola Virus Disease symptoms Patient denies exposure to infectious person Patient denies travel to an Ebola-affected area in the 21 days before illness onset. ROS: 22:05 Constitutional: Negative for body aches, chills, fever, poor PO intake. cp 22:05 Eyes: Negative for injury, pain, redness, and discharge. cp 22:05 ENT: Negative for ear pain, sore throat, difficulty swallowing, difficulty handling secretions. 22:05 Cardiovascular: Positive for chest pain, Negative for edema, palpitations. 22:05 Respiratory: Negative for cough, shortness of breath, wheezing. 22:05 Abdomen/GI: Negative for abdominal pain, nausea, vomiting, and diarrhea, black/tarry stool, rectal bleeding. 22:05 Back: Negative for pain at rest, pain with movement. 22:05 : Negative for urinary symptoms. 22:05 MS/extremity: Positive for paresthesias, of the left arm and left leg. 22:05 Skin: Negative for cellulitis, rash. 22:05 Neuro: Positive for headache, weakness, of the left arm and left leg, Negative for altered mental status, syncope, near syncope. 22:05 All other systems are negative. Exam: 22:20 Radiologist reports: no acute findings cp 22:43 Constitutional: The patient appears in no acute distress, alert, awake, cp non-diaphoretic, well developed, well nourished. 22:43 Head/face: Noted is mild left lower lip facial droop. cp 22:43 Eyes: Periorbital structures: appear normal, Pupils: equal, round, and reactive to light and accomodation, Extraocular movements: intact throughout, Conjunctiva: normal, no exudate, no injection, Sclera: no appreciated abnormality, Lids and lashes: appear normal, bilaterally. 22:43 ENT: External ear(s): are unremarkable, Ear canal(s): are normal, clear, TM's: dullness, bilaterally, Nose: is normal, Mouth: Lips: moist, Oral mucosa: pink and intact, moist, Posterior pharynx: is normal, airway is patent, no erythema, no exudate. 22:43 Neck: ROM/movement: is normal, is supple, without pain, no range of motions limitations, no nuchal rigidity. 22:43 Chest/axilla: Inspection: normal, Palpation: is normal, no crepitus, no tenderness. 22:43 Cardiovascular: Rate: normal, Rhythm: regular, Pulses: Pulses are 2+ in right radial artery and left radial artery. Heart sounds: murmur, not appreciated, Edema: is not appreciated, JVD: is not appreciated. 22:43 Respiratory: the patient does not display signs of respiratory distress, Respirations: normal, no use of accessory muscles, no retractions, no splinting, no tachypnea, labored breathing, is not present, Breath sounds: are clear throughout, no decreased breath sounds, no stridor, no wheezing. 22:43 Abdomen/GI: Inspection: abdomen appears normal, Bowel sounds: active, all quadrants, Palpation: abdomen is soft and non-tender, in all quadrants, rebound tenderness, is not appreciated, voluntary guarding, is not appreciated, involuntary guarding, is not appreciated. 22:43 Back: pain, is absent, ROM is normal. 22:43 Musculoskeletal/extremity: Exam is negative for bony tenderness, calf tenderness, decreased range of motion, edema. 22:43 Skin: cellulitis, is not appreciated, no rash present. 22:43 Neuro: Orientation: to person, place \T\ time. Mentation: lucid, able to follow commands, Cerebellar function: Romberg testing is negative, normal finger to nose testing, Motor: moves all fours, Strength is 3/5 in the left leg, Sensation: light touch is decreased in the left arm and left leg. Vital Signs: 21:40 BP 129 / 87; Pulse 97; Resp 22; Temp 98.0(O); Pulse Ox 100% on R/A; Weight 88.45 kg fc (R); Height 5 ft. 7 in. (170.18 cm) (R); Pain 9/10; 22:45 BP 123 / 86; Pulse 83; Resp 20; Pulse Ox 100% on R/A; ak1 23:17 BP 123 / 72; Pulse 89; Resp 20; Temp 98; Pulse Ox 99% on R/A; Pain 9/10; ak1 11/08 00:08 BP 115 / 68; Pulse 80; Resp 20; Pulse Ox 98% on R/A; ea 00:10 BP 115 / 68; Pulse 80; Resp 16; Temp 98.1; Pulse Ox 98% on R/A; Pain 0/10; ak1 01:00 BP 120 / 66; Pulse 73; Resp 20; Temp 98.1; Pulse Ox 99% on R/A; Pain 6/10; ak1 01:37 BP 114 / 60; Pulse 75; Resp 20; Temp 98.1; Pulse Ox 99% on R/A; Pain 5/10; ak1 11/07 21:40 Body Mass Index 30.54 (88.45 kg, 170.18 cm) fc NIH Stroke Scale Scores: 11/07 22:40 NIHSS Score: 4 cp 22:41 NIHSS Score: 5 fc 23:07 NIHSS Score: 5 ak1 MDM: 21:51 Patient medically screened. cp 21:55 ED course: Patient is not a candidate for tpa. Patient reports history of CVA 2 weeks cp ago while in [facility]. Patient reports receiving tpa at that time. 22:00 Differential diagnosis: CVA, TIA, metabolic disorder, drug effects, reexpression of cp previous CVA, hyperglycemia, DKA. 23:05 Data reviewed: vital signs, nurses notes, lab test result(s), EKG, radiologic studies, cp CT scan, plain films. 23:05 Counseling: I had a detailed discussion with the patient and/or guardian regarding: the historical points, exam findings, and any diagnostic results supporting the discharge/admit diagnosis, lab results, radiology results. Response to treatment: the patient's symptoms have mildly improved after treatment, and as a result, I will admit patient. 23:13 Physician consultation: Heather Gaffney MD was called at 23:14, was contacted at 23:14, cp regarding admission, to the telemetry unit. 23:19 Physician consultation: Luis Manuel Corley MD was called at 23:20, was contacted at 23:20, cp regarding admission, to the telemetry unit. patient's condition, and will see patient in inpatient room. 11/07 21:52 Order name: Basic Metabolic Panel; Complete Time: 22:49 cp 11/07 22:49 Interpretation: Normal except: NA 132; GLUC 400; GFR 86. 11/07 21:52 Order name: CBC with Diff; Complete Time: 22:49 11/07 21:52 Order name: Ckmb; Complete Time: 22:49 11/07 21:52 Order name: CPK; Complete Time: 22:49 11/07 21:52 Order name: LFT's; Complete Time: 22:49 11/07 23:17 Interpretation: Normal except: ALK 134; GLOB 3.9; A/G 1.0. 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 11/07 23:24 Order name: Head angio EDHI 11/08 01:27 Order name: Urine Dipstick--Ancillary (enter results) 11/08 01:54 Order name: Urine Dipstick-Ancillary [facility] 11/07 21:52 Order name: EKG; Complete Time: 21:53 11/07 21:52 Order name: Cardiac monitoring; Complete Time: 22:46 11/07 21:52 Order name: EKG - Nurse/Tech; Complete Time: 22:56 11/07 21:52 Order name: IV Saline Lock; Complete Time: 22:46 11/07 21:52 Order name: Labs collected and sent; Complete Time: 22:46 11/07 21:52 Order name: O2 Per Protocol; Complete Time: 22:46 11/07 21:52 Order name: O2 Sat Monitoring; Complete Time: 22:46 11/07 21:52 Order name: Urine Dipstick-Ancillary (obtain specimen); Complete Time: 01:25 cp Administered Medications: 23:01 Drug: foLIC Acid 1 mg Route: IVPB; Site: left antecubital; ak1 23:03 Follow up: IV Status: Completed infusion ak1 23:01 Drug: Aspirin 81 mg Route: PO; ak1 23:03 Follow up: Response: No adverse reaction ak1 23:02 Drug: NS 0.9% 500 ml Route: IV; Rate: bolus; Site: left antecubital; ak1 23:30 Follow up: IV Status: Completed infusion ak1 23:04 Drug: Insulin Regular Human 10 units {Co-Signature: ak1 (Zoë Moncada RN).} Route: IVP; bb Site: left antecubital; 23:16 Follow up: Response: No adverse reaction ak1 23:23 CANCELLED (Duplicate Order): morphine 4 mg IVP once ea :25 Drug: morphine 2 mg Route: IVP; Site: right antecubital; ea 11/08 00:15 Follow up: Response: No adverse reaction ak1 11/07 23:26 Drug: Zofran 4 mg Route: IVP; Site: right antecubital; ea 11/08 00:15 Follow up: Response: No adverse reaction ak1 11/07 23:27 Drug: NS 0.9% 1000 ml Route: IV; Rate: 100 ml/hr; Site: right antecubital; ea 11/08 01:19 Follow up: Response: No adverse reaction; IV Status: Infusion continued upon admission ea :20 Drug: Hydrocodone-Acetaminophen (7.5 mg-325 mg) 1 tabs Route: PO; ea 01:27 Follow up: Response: No adverse reaction ak1 Point of Care Testing: Blood Glucose: 11/07 21:49 Blood Glucose: 329 mg/dL; fc 11/08 00:14 Blood Glucose: 334 mg/dL; ak1 Ranges: Critical Glucose Levels:Adult <50 mg/dl or >400 mg/dl <40 mg/dl or >180 mg/dl Disposition: :00 Chart complete. cp Disposition: 11/08/17 00:06 Hospitalization ordered by Heather Gaffney for Observation. Preliminary diagnosis are Weakness - Left Upper and Lower Extremity, Paresthesia of skin - Left Upper and Lower Extremity, Diabetes mellitus due to underlying condition with hyperglycemia. - Bed requested for Telemetry/MedSurg (observation). - Status is Observation. ak1 - Condition is Stable. - Problem is new. - Symptoms are unchanged. UTI on Admission? No NIH Stroke Scale - NIH Stroke Score Date: 11/07/2017 Time: 22:40 Total Score = 4 1a. Level of Consciousness (LOC) - 0(Alert) 1b. Level of Consciousness (LOC) (Year \T\ Age) - 0(Both) 1c. LOC Commands (Open \T\ Closes Eyes/Cosmetology Educator) - 0(Both) 2. Best Gaze (Lateral Gaze Paresis) - 0(Normal) 3. Visual Field Loss - 0(No visual loss) 4. Facial Palsy - 1(Minor Paralysis) 5a. Left Arm: Motor (10-second hold) - 0(No drift) 5b. Right Arm: Motor (10-second hold) - 0(No drift) 6a. Left Leg: Motor (5-second hold - always test supine) - 2(Drift, some effort against gravity) 6b. Right Leg: Motor (5-second hold - always test supine) - 0(No drift) 7. Limb Ataxia (finger/nose \T\ heel/ford - test with eyes open) - 0(Absent) 8. Sensory Loss (pinprick arms/legs/face) - 1(Mild to moderate loss) 9. Best Language: Aphasia (description/naming/reading) - 0(No aphasia) 10. Dysarthria (speech clarity - read or repeat words) - 0(Normal) 11. Extinction and Inattention (visual/tactile/auditory/spatial/personal) - 0(No abnormality) Initials: cp NIH Stroke Scale - NIH Stroke Score Date: 11/07/2017 Time: 22:41 Total Score = 5 1a. Level of Consciousness (LOC) - 0(Alert) 1b. Level of Consciousness (LOC) (Year \T\ Age) - 0(Both) 1c. LOC Commands (Open \T\ Closes Eyes/Cosmetology Educator) - 0(Both) 2. Best Gaze (Lateral Gaze Paresis) - 0(Normal) 3. Visual Field Loss - 0(No visual loss) 4. Facial Palsy - 1(Minor Paralysis) 5a. Left Arm: Motor (10-second hold) - 0(No drift) 5b. Right Arm: Motor (10-second hold) - 0(No drift) 6a. Left Leg: Motor (5-second hold - always test supine) - 2(Drift, some effort against gravity) 6b. Right Leg: Motor (5-second hold - always test supine) - 0(No drift) 7. Limb Ataxia (finger/nose \T\ heel/ford - test with eyes open) - 1(Present in one limb) 8. Sensory Loss (pinprick arms/legs/face) - 1(Mild to moderate loss) 9. Best Language: Aphasia (description/naming/reading) - 0(No aphasia) 10. Dysarthria (speech clarity - read or repeat words) - 0(Normal) 11. Extinction and Inattention (visual/tactile/auditory/spatial/personal) - 0(No abnormality) Initials: NIH Stroke Scale - NIH Stroke Score Date: 11/07/2017 Time: 23:07 Total Score = 5 1a. Level of Consciousness (LOC) - 0(Alert) 1b. Level of Consciousness (LOC) (Year \T\ Age) - 0(Both) 1c. LOC Commands (Open \T\ Closes Eyes/Cosmetology Educator) - 0(Both) 2. Best Gaze (Lateral Gaze Paresis) - 0(Normal) 3. Visual Field Loss - 0(No visual loss) 4. Facial Palsy - 1(Minor Paralysis) 5a. Left Arm: Motor (10-second hold) - 0(No drift) 5b. Right Arm: Motor (10-second hold) - 0(No drift) 6a. Left Leg: Motor (5-second hold - always test supine) - 2(Drift, some effort against gravity) 6b. Right Leg: Motor (5-second hold - always test supine) - 0(No drift) 7. Limb Ataxia (finger/nose \T\ heel/ford - test with eyes open) - 1(Present in one limb) 8. Sensory Loss (pinprick arms/legs/face) - 1(Mild to moderate loss) 9. Best Language: Aphasia (description/naming/reading) - 0(No aphasia) 10. Dysarthria (speech clarity - read or repeat words) - 0(Normal) 11. Extinction and Inattention (visual/tactile/auditory/spatial/personal) - 0(No abnormality) Initials: ak1 Addendum: 11/10/2017 12:39 Co-signature as Attending Physician, Jameson Mejia MD I agree with the ps1 assessment and plan of care. Available for consultation at all times. . Signatures: Dispatcher [employer] EDMS Nila Huff RN Cathleen Purdy RN RN bb Krenek, Amber, RN RN ak1 Mustapha Joe PA PA cp Antunez, Elena, RN RN ea Singer, Phillip, MD MD ps1 Botello, Elizabeth Zoë Moncada RN ak1 Corrections: (The following items were deleted from the chart) 11/07 22:46 22:15 Radiologist reports: no acute findings cp cp 23:23 23:22 morphine 4 mg IVP once ordered. livia bhakta 23:26 21:53 ED course: Patient is not tpa candidate as he reports having CVA 1 week cp ago that affected left side of body in which he received tpa. cp 11/08 00:12 00:06 Hospitalization Ordered by Heather Gaffney MD for Observation. Preliminary cp diagnosis is Weakness - Left Upper and Lower Extremity; Paresthesia of skin - Left Upper and Lower Extremity. Bed requested for Telemetry/MedSurg (observation). Status is Observation. Condition is Stable. Problem is new. Symptoms are unchanged. UTI on Admission? No. cp 00:56 00:12 11/08/2017 00:06 Hospitalization Ordered by Heather Gaffney MD for eb Observation. Preliminary diagnosis is Weakness - Left Upper and Lower Extremity; Paresthesia of skin - Left Upper and Lower Extremity; Diabetes mellitus due to underlying condition with hyperglycemia. Bed requested for Telemetry/MedSurg (observation). Status is Observation. Condition is Stable. Problem is new. Symptoms are unchanged. UTI on Admission? No. cp 01:37 00:56 11/08/2017 00:06 Hospitalization Ordered by Heather Gaffney MD for eb Observation. Preliminary diagnosis is Weakness - Left Upper and Lower Extremity; Paresthesia of skin - Left Upper and Lower Extremity; Diabetes mellitus due to underlying condition with hyperglycemia. Bed requested for Telemetry/MedSurg (observation). Status is Observation. Condition is Stable. Problem is new. Symptoms are unchanged. UTI on Admission? No. eb 02:02 01:37 11/08/2017 00:06 Hospitalization Ordered by Heather Gaffney MD for ak1 Observation. Preliminary diagnosis is Weakness - Left Upper and Lower Extremity; Paresthesia of skin - Left Upper and Lower Extremity; Diabetes mellitus due to underlying condition with hyperglycemia. Bed requested for Telemetry/MedSurg (observation). Status is Observation. Condition is Stable. Problem is new. Symptoms are unchanged. UTI on Admission? No. eb 20:56 20:53 Constitutional: Negative for cp cp 21:06 11/07 21:55 ED course: Patient is not TPA candidate at this time. Patient cp reports history of CVA 2 weeks and that he received TPA at that time while in [place], [place]. cp
--- NOTE | 2017-11-08 00:07 | ER ---
Nurse's Notes [facility] Name: Ernie Rooney Age: 57 yrs Sex: Male : 1960 Arrival Date: 11/07/2017 Time: 21:40 Bed 3 Private MD: Diagnosis: Weakness-Left Upper and Lower Extremity;Paresthesia of skin-Left Upper and Lower Extremity;Diabetes mellitus due to underlying condition with hyperglycemia Presentation: 11/07 21:40 Presenting complaint: Patient states: that he is having left side numbness and fc weakness. Also having headache. Had stroke with TPA 2 weeks ago. 21:55 Transition of care: patient was not received from another setting of care. An acute fc neurological deficit is present. The charge nurse has been notified. The patient has been moved to a treatment area. Pre-hospital glucose is not applicable to this patient. Onset of symptoms was November 07, 2017 at 20:15. Risk Assessment: Do you want to hurt yourself or someone else? Patient reports no desire to harm self or others. Initial Sepsis Screen: Does the patient meet any 2 criteria? No. Patient's initial sepsis screen is negative. Does the patient have a suspected source of infection? No. Patient's initial sepsis screen is negative. Care prior to arrival: None. 21:55 Method Of Arrival: Ambulatory fc 21:55 Acuity: TONE 2 fc Triage Assessment: 21:40 The onset of the patients symptoms was November 07, 2017 at 20:45. fc 23:11 General: Appears in no apparent distress. Behavior is calm, cooperative. ak1 23:15 Neuro: Reports. ak1 Stroke Activation: Symptom onset < 3 hours Physician: Stroke Attending; Name: ; Notified At: ; Arrived At: Physician: Chief Stroke Resident; Name: ; Notified At: ; Arrived At: Physician: Stroke Resident; Name: ; Notified At: ; Arrived At: Physician: ED Attending; Name: ; Notified At: 21:07; Arrived At: Physician: ED Resident; Name: ; Notified At: ; Arrived At: Historical: - Allergies: 22:20 No Known Allergies; fc - Home Meds: 22:20 tizanidine 4 mg oral cap 1 cap 3 times per day [Active]; tramadol 50 mg Oral tab 1 tab fc three times a day [Active]; doxazosin 8 mg Oral tab 1 tab once daily [Active]; gabapentin 800 mg oral tab 1 tab twice a day [Active]; Protonix 40 mg oral TbEC 1 tab once daily [Active]; tamsulosin 0.4 mg Oral cp24 1 cap once daily [Active]; simvastatin 80 mg Oral tab daily [Active]; metformin 1,000 mg Oral tab 1 tab 2 times per day [Active]; glipizide 10 mg Oral tab 2 tabs 2 times per day [Active]; levothyroxine 25 mcg tab 1 tab once daily [Active]; fenofibrate 200 mg Oral once daily [Active]; omeprazole 20 mg Oral cpDR 1 cap once daily [Active]; venlafaxine 75 mg oral tab 1 tab 2 times per day [Active]; clopidogrel 75 mg Oral tab 1 tab once daily [Active]; - PMHx: 22:20 Myocardial infarction; GERD; Hypertension; Back pain; Diabetes - NIDDM; High fc Cholesterol; Hypothyroidism; Hyperlipidemia; Depression; - PSHx: 22:20 pacemaker; back surg; fc - Immunization history:: Last tetanus immunization: unknown. - Social history:: Smoking status: Patient/guardian denies using tobacco. - Ebola Screening: : Patient negative for fever greater than or equal to 101.5 degrees Fahrenheit, and additional compatible Ebola Virus Disease symptoms Patient denies exposure to infectious person Patient denies travel to an Ebola-affected area in the 21 days before illness onset. Screenin:26 The patient has not been NPO before screening. The patient is alert, able to follow fc commands. The patient does not exhibit slurred or garbled speech The patient is not exhibiting difficulty speaking. The patient does not exhibit difficulty understanding words. The patient is able to swallow own secretions with no drooling or need for suction. Patient tolerated one teaspoon of water. No drooling, immediate coughing, gurgling, or clearing of the throat was noted. The patient tolerated 90mL of water. No drooling, immediate coughing, gurgling, or clearing of the throat was noted. The patient passed the bedside swallow screening. Oral medications may be given as ordered. Contact Physician for further diet orders. Provider notified of bedside swallow screening results: Mustapha WHITESIDE. 23:07 Abuse screen: Denies threats or abuse. Denies injuries from another. Nutritional ak1 screening: No deficits noted. Tuberculosis screening: No symptoms or risk factors identified. Fall Risk IV access (20 points). Assessment: 23:07 Patient has been NPO before screening. The patient is alert, and able to follow ak1 commands. The patient does not exhibit slurred or garbled speech. The patient is not exhibiting difficulty speaking. The patient does not exhibit difficulty understanding words. The patient is able to swallow own secretions with no drooling or need for suction. Patient tolerated one teaspoon of water. No drooling, immediate coughing, gurgling, or clearing of the throat was noted. The patient tolerated 90mL of water. No drooling, immediate coughing, gurgling, or clearing of the throat was noted. The patient passed the bedside swallow screening. Oral medications may be given as ordered. Contact Physician for further diet orders. Provider notified of bedside swallow screening results: Mustapha WHITESIDE. T-PA (Activase) Screening: Contraindications: Other: T-PA last week for previous stroke. General: Appears in no apparent distress. Behavior is calm, cooperative. Pain: Complains of pain in headache. Neuro: Level of Consciousness is awake, alert, obeys commands, Oriented to person, place, time, situation, Network Operations Manager are equal bilaterally Moves all extremities. Gait is pt with weakness to left leg, possible deificit from previous stroke.. Speech is normal, Facial symmetry appears normal, Pupils are PERRLA. Cardiovascular: No deficits noted. Respiratory: No deficits noted. GI: No signs and/or symptoms were reported involving the gastrointestinal system. : No signs and/or symptoms were reported regarding the genitourinary system. EENT: No signs and/or symptoms were reported regarding the EENT system. Derm: No signs and/or symptoms reported regarding the dermatologic system. Musculoskeletal: No signs and/or symptoms reported regarding the musculoskeletal system. 11/08 00:07 Reassessment: Patient and/or family updated on plan of care and expected duration. Pain ea level reassessed. Patient is alert, oriented x 3, equal unlabored respirations, skin warm/dry/pink. Vital Signs: 11/07 21:40 BP 129 / 87; Pulse 97; Resp 22; Temp 98.0(O); Pulse Ox 100% on R/A; Weight 88.45 kg fc (R); Height 5 ft. 7 in. (170.18 cm) (R); Pain 9/10; 22:45 BP 123 / 86; Pulse 83; Resp 20; Pulse Ox 100% on R/A; ak1 23:17 BP 123 / 72; Pulse 89; Resp 20; Temp 98; Pulse Ox 99% on R/A; Pain 9/10; ak1 11/08 00:08 BP 115 / 68; Pulse 80; Resp 20; Pulse Ox 98% on R/A; ea 00:10 BP 115 / 68; Pulse 80; Resp 16; Temp 98.1; Pulse Ox 98% on R/A; Pain 0/10; ak1 01:00 BP 120 / 66; Pulse 73; Resp 20; Temp 98.1; Pulse Ox 99% on R/A; Pain 6/10; ak1 01:37 BP 114 / 60; Pulse 75; Resp 20; Temp 98.1; Pulse Ox 99% on R/A; Pain 5/10; ak1 11/07 21:40 Body Mass Index 30.54 (88.45 kg, 170.18 cm) fc NIH Stroke Scale Scores: 11/07 22:40 NIHSS Score: 4 cp 22:41 NIHSS Score: 5 fc 23:07 NIHSS Score: 5 ak1 ED Course: 21:40 Patient arrived in ED. ds1 21:40 Arm band placed on Patient placed in an exam room, on a stretcher. fc 21:45 EKG completed in triage. Results shown to MD. fc 21:45 EKG done, by ED staff, reviewed by Mustapha WHITESIDE. fc 21:51 Mustapha Joe PA is PHCP. cp 21:51 Jameson Mejia MD is Attending Physician. cp 21:58 CT Head Brain wo Cont: weakness left arm and leg started 1 hour EDUCATION REP In Process EDMS Unspecified. 21:58 Triage completed. fc 22:05 X-ray(s) taken. fc 22:09 XRAY Chest (1 view) In Process Unspecified. EDMS 22:10 Inserted saline lock: 20 gauge in left antecubital area, using aseptic technique. fc 22:13 Initial lab(s) drawn, by laboratory technician, sent to lab. fc 22:44 Zoë Moncada, RN is Primary Nurse. ak1 23:07 Patient has correct armband on for positive identification. Placed in gown. Bed in low ak1 position. Call light in reach. Side rails up X2. Adult w/ patient. non linear editor on. Pulse ox on. NIBP on. 23:15 No provider procedures requiring assistance completed. ak1 11/08 00:05 Heather Gaffney MD is Hospitalizing Provider. cp 00:11 Patient admitted, IV remains in place. ak1 00:31 Head angio In Process Unspecified. EDMS Administered Medications: 11/07 23:01 Drug: foLIC Acid 1 mg Route: IVPB; Site: left antecubital; ak1 23:03 Follow up: IV Status: Completed infusion ak1 23:01 Drug: Aspirin 81 mg Route: PO; ak1 23:03 Follow up: Response: No adverse reaction ak1 23:02 Drug: NS 0.9% 500 ml Route: IV; Rate: bolus; Site: left antecubital; ak1 23:30 Follow up: IV Status: Completed infusion ak1 23:04 Drug: Insulin Regular Human 10 units {Co-Signature: ak1 (Zoë Moncada RN).} Route: IVP; bb Site: left antecubital; 23:16 Follow up: Response: No adverse reaction ak1 23:23 CANCELLED (Duplicate Order): morphine 4 mg IVP once ea 23:25 Drug: morphine 2 mg Route: IVP; Site: right antecubital; ea 11/08 00:15 Follow up: Response: No adverse reaction ak1 11/07 23:26 Drug: Zofran 4 mg Route: IVP; Site: right antecubital; ea 11/08 00:15 Follow up: Response: No adverse reaction ak1 11/07 23:27 Drug: NS 0.9% 1000 ml Route: IV; Rate: 100 ml/hr; Site: right antecubital; ea 11/08 01:19 Follow up: Response: No adverse reaction; IV Status: Infusion continued upon admission ea :20 Drug: Hydrocodone-Acetaminophen (7.5 mg-325 mg) 1 tabs Route: PO; ea 01:27 Follow up: Response: No adverse reaction ak1 Point of Care Testing: Blood Glucose: 11/07 21:49 Blood Glucose: 329 mg/dL; fc 11/08 00:14 Blood Glucose: 334 mg/dL; ak1 Ranges: Outcome: 00:06 Decision to Hospitalize by Provider. cp 00:11 Condition: stable ak1 00:11 Instructed on the need for admit. 01:50 Admitted to Tele accompanied by tech, via wheelchair, room 411, with chart, Report ak1 called to Biib rolle for 411 02:02 Patient left the ED. ak1 NIH Stroke Scale - NIH Stroke Score Date: 11/07/2017 Time: 22:40 Total Score = 4 1a. Level of Consciousness (LOC) - 0(Alert) 1b. Level of Consciousness (LOC) (Year \T\ Age) - 0(Both) 1c. LOC Commands (Open \T\ Closes Eyes/Telephone Supervisor) - 0(Both) 2. Best Gaze (Lateral Gaze Paresis) - 0(Normal) 3. Visual Field Loss - 0(No visual loss) 4. Facial Palsy - 1(Minor Paralysis) 5a. Left Arm: Motor (10-second hold) - 0(No drift) 5b. Right Arm: Motor (10-second hold) - 0(No drift) 6a. Left Leg: Motor (5-second hold - always test supine) - 2(Drift, some effort against gravity) 6b. Right Leg: Motor (5-second hold - always test supine) - 0(No drift) 7. Limb Ataxia (finger/nose \T\ heel/ford - test with eyes open) - 0(Absent) 8. Sensory Loss (pinprick arms/legs/face) - 1(Mild to moderate loss) 9. Best Language: Aphasia (description/naming/reading) - 0(No aphasia) 10. Dysarthria (speech clarity - read or repeat words) - 0(Normal) 11. Extinction and Inattention (visual/tactile/auditory/spatial/personal) - 0(No abnormality) Initials: cp NIH Stroke Scale - NIH Stroke Score Date: 11/07/2017 Time: 22:41 Total Score = 5 1a. Level of Consciousness (LOC) - 0(Alert) 1b. Level of Consciousness (LOC) (Year \T\ Age) - 0(Both) 1c. LOC Commands (Open \T\ Closes Eyes/Telephone Supervisor) - 0(Both) 2. Best Gaze (Lateral Gaze Paresis) - 0(Normal) 3. Visual Field Loss - 0(No visual loss) 4. Facial Palsy - 1(Minor Paralysis) 5a. Left Arm: Motor (10-second hold) - 0(No drift) 5b. Right Arm: Motor (10-second hold) - 0(No drift) 6a. Left Leg: Motor (5-second hold - always test supine) - 2(Drift, some effort against gravity) 6b. Right Leg: Motor (5-second hold - always test supine) - 0(No drift) 7. Limb Ataxia (finger/nose \T\ heel/ford - test with eyes open) - 1(Present in one limb) 8. Sensory Loss (pinprick arms/legs/face) - 1(Mild to moderate loss) 9. Best Language: Aphasia (description/naming/reading) - 0(No aphasia) 10. Dysarthria (speech clarity - read or repeat words) - 0(Normal) 11. Extinction and Inattention (visual/tactile/auditory/spatial/personal) - 0(No abnormality) Initials: NIH Stroke Scale - NIH Stroke Score Date: 11/07/2017 Time: 23:07 Total Score = 5 1a. Level of Consciousness (LOC) - 0(Alert) 1b. Level of Consciousness (LOC) (Year \T\ Age) - 0(Both) 1c. LOC Commands (Open \T\ Closes Eyes/Telephone Supervisor) - 0(Both) 2. Best Gaze (Lateral Gaze Paresis) - 0(Normal) 3. Visual Field Loss - 0(No visual loss) 4. Facial Palsy - 1(Minor Paralysis) 5a. Left Arm: Motor (10-second hold) - 0(No drift) 5b. Right Arm: Motor (10-second hold) - 0(No drift) 6a. Left Leg: Motor (5-second hold - always test supine) - 2(Drift, some effort against gravity) 6b. Right Leg: Motor (5-second hold - always test supine) - 0(No drift) 7. Limb Ataxia (finger/nose \T\ heel/ford - test with eyes open) - 1(Present in one limb) 8. Sensory Loss (pinprick arms/legs/face) - 1(Mild to moderate loss) 9. Best Language: Aphasia (description/naming/reading) - 0(No aphasia) 10. Dysarthria (speech clarity - read or repeat words) - 0(Normal) 11. Extinction and Inattention (visual/tactile/auditory/spatial/personal) - 0(No abnormality) Initials: ak1 Signatures: Dispatcher [employer] EDMS Nila Huff RN RN Genia Villa ds1 Cathleen Harvey RN Zoë Flores RN RN ak1 Mustapha Joe PA PA cp Antunez, Elena, RN RN ea Amber Krenek RN ak1 Corrections: (The following items were deleted from the chart) 11/07 21:59 21:55 Presenting complaint: Patient states: that he is having left side fc numbness and weakness. Also having headache. Had stroke with TPA 2 weeks ago 22:42 22:28 NIHSS Score: 3 [facility] 11/08 01:38 01:22 BP 120 / 66; Pulse 73bpm; Resp 20bpm; Pulse Ox 99% RA; Temp 98.1F; Pain ak1 10/29; ak1 02:02 02:01 Urine 700, (Cedeno), Output Total 700. ak1 ak1
[2017-11-08] MEDS ORDERED: HYDROCODONE/APAP 7.5/325 MG TAB ONE (01:19)
[2017-11-08] MEDS ORDERED: ACETAMINOPHEN 500 MG TAB PO PRN (01:25)
[2017-11-08 01:53] LABS: Urine Specific Gravity 1.015 (1.005-1.030)
[2017-11-08 01:54] LABS: Urine Blood NEGATIVE (NEG); Urine Glucose 2+ (NEG); Urine Protein NEGATIVE (NEG)
[2017-11-08 02:40] VITALS: BMI 30.5
[2017-11-08] MEDS ORDERED: Morphine 2 MG/2 ML SYR IV PRN (02:51)
[2017-11-08] MEDS ORDERED: MORPHINE 2 MG/ML SYR ONE (03:07)
[2017-11-08] MEDS: NA CHLORIDE 0.9% 1,000 ML IV SCH ×2 (03:13→14:24)
[2017-11-08 04:18] LABS: Absolute Lymphocytes (CBC) 2.8 K/uL (0.7-4.9); Absolute Monocytes 0.5 K/uL (0.1-1.3); Absolute Neutrophil 4.3 K/uL (1.8-8.0); Basophils % 0.4 % (0-1.3); Eosinophils % 3.9 % (0-4.4); Hematocrit 41.9 % (39.6-49.0); Lymphocytes % 35.5 % (15.3-44.8); MCH 30.1 pg (27.0-35.0); MCV 87.5 fL (80-100); MPV 8.6 fL (7.6-11.3); Monocytes % 6.1 % (3.3-12.3); RBC Red Blood Cell Count 4.79 M/uL (4.33-5.43)
[2017-11-08 04:36] LABS: BUN Blood Urea Nitrogen 12 mg/dL (7-18); Bicarbonate 26 mmol/L (21-32); Glucose Level 307 mg/dL (74-106); HDL Cholesterol 32 mg/dL (40-60); LDL Cholesterol, Calculated 119 (<130); Magnesium 1.9 mg/dL (1.8-2.4); Potassium 4.3 mmol/L (3.5-5.1); Sodium Level 139 mmol/L (136-145)
[2017-11-08] MEDS: ONDANSETRON 4 MG/2 ML VIAL IV PRN ×2 (05:49→17:14)
--- NOTE | 2017-11-08 07:35 | P.HP ---
Certification for Inpatient Patient admitted to: Observation With expected LOS: <2 Midnights Patient will require the following post-hospital care: None Practitioner: I am a practitioner with admitting privileges, knowledge of patient current condition, hospital course, and medical plan of care. Services: Services provided to patient in accordance with Admission requirements found in Title 42 Section 412.3 of the Code of Federal Regulations Patient History Date of Service: 11/07/17 Reason for admission: left upper and lower extremity weakness History of Present Illness: Patient is a 57yo who was admitted to the hospital with left-sided paresthesias. Patient has had a stroke 2 weeks ago while in [facility]. Patient apparently was giving tPA and had rehab. Patient was transfer to a nursing home facility or he stayed for 10 days but left against medical advice. Patient had been doing well and was visiting family in the area when in the left side of his body started getting weak. Patient had paresthesias and weakness and he was brought into the hospital. In the emergency room patient's workup has been unremarkable including CT angiogram of the head with IV contrast. Patient's symptoms are improving. Patient being monitored on the floor for further evaluation. Patient had a carotid stent placed on the left carotid artery 6 months ago in a pacemaker placed 4 months ago. This is a [employer] pacemaker. Patient clinically appears to be stabilizing and will monitor for observation over the next 24-48 hr. Allergies No Known Allergies Allergy (Verified 10/19/12 16:51) Home Medications: Clopidogrel Bisulfate [Clopidogrel] 75 mg PO DAILY 03/29/13 Cyclobenzaprine [Flexeril*] 10 mg PO TID 03/29/13 Dicyclomine [Bentyl*] 10 mg PO BID 03/29/13 Doxazosin Mesylate 4 mg PO DAILY 03/29/13 Doxazosin [Cardura*] 1 mg PO BEDTIME 03/29/13 Fenofibrate,Micronized [Fenofibrate] 200 mg PO DAILY 03/29/13 Hydrocodone Bit/Acetaminophen [Hydrocodon-Acetaminophn 10-325] 1 each PO Q4H PRN 03/29/13 Ibuprofen [Motrin] 600 mg PO DAILY 03/29/13 Insulin Glargine Human [Lantus*] 90 unit SQ Q12H 03/29/13 Insulin Regular, Human [Humulin R] 25 unit SQ TID 03/29/13 Metformin HCl [Glucophage*] 1,000 mg PO BIDWM 03/29/13 Omeprazole [Prilosec] 20 mg PO DAILY 03/29/13 Pregabalin [Lyrica] 150 mg PO BID 03/29/13 Simvastatin 80 mg PO BEDTIME 03/29/13 Temazepam [Restoril] 30 mg PO BEDTIME 03/29/13 Tizanidine [Zanaflex*] 4 mg PO Q8H PRN 03/29/13 Tramadol HCl 50 mg PO Q6H 03/29/13 Venlafaxine HCl [Effexor*] 37.5 mg PO BID 03/29/13 - Past Medical/Surgical History Has patient received pneumonia vaccine in the past: Yes Diabetic: Yes -: [place] -: GERD -: Hypertension -: Anxiety; depression -: DM insulin dependent -: Hypothyroidism -: enlarged prostate -: cataract in the left eye -: fibromyalgia -: hyperlipidemia -: neuropathy -: pacemaker placement May 2017 -: triple bypass 2002 4 stents -: back surgeries x 6 -: arthroscopic surgeries bilateral knees -: left forearm rodding -: deep -: appy -: tonsellectomy - Family History Father History Unknown: Yes Mother Medical History: Heart disease, Hypertension grandparents Medical History: Diabetes, Stroke - Social History Smoking Status: Former smoker Alcohol use: No CD- Drugs: No Caffeine use: Yes Place of Residence: Home Review of Systems 10-point ROS is otherwise unremarkable Physical Examination - Vital Signs Temperature: 96.9 F Blood Pressure: 143/75 Pulse: 76 Respirations: 20 Pulse Ox (%): 98 - Physical Exam General: Alert, In no apparent distress, Oriented x3 HEENT: Atraumatic, PERRLA, Mucous membr. moist/pink, EOMI, Sclerae nonicteric Neck: Supple, 2+ carotid pulse no bruit, No LAD, Without JVD or thyroid abnormality Respiratory: Clear to auscultation bilaterally, Normal air movement Cardiovascular: Regular rate/rhythm, Normal S1 S2, No murmurs Gastrointestinal: Normal bowel sounds, Soft and benign, Non-distended, No tenderness Musculoskeletal: No clubbing, No swelling, No tenderness Integumentary: No rashes Neurological: Normal gait, Normal speech, Normal strength at 5/5 x4 extr, Normal tone, Sensation intact, Cranial nerves 3-12 intact, Normal affect Lymphatics: No axilla or inguinal lymphadenopathy - Studies Laboratory Data (last 24 hrs) 11/07/17 22:08: PT 11.7, INR 0.99, APTT 31.9 11/07/17 22:08: WBC 8.1, Hgb 15.7, Hct 45.5, Plt Count 282 11/07/17 22:08: Sodium 132 L, Potassium 3.9, BUN 11, Creatinine 0.90, Glucose 400 H, Magnesium 1.8, Total Bilirubin 0.4, AST 24, ALT 32, Alkaline Phosphatase 134 H Assessment & Plan - Problems (Diagnosis) (1) Acute CVA (cerebrovascular accident) Current Visit: Yes Status: Acute (2) Left-sided weakness Current Visit: Yes Status: Acute (3) Left leg paresthesias Current Visit: Yes Status: Acute (4) History of left common carotid artery stent placement Current Visit: Yes Status: Acute (5) History of pacemaker Current Visit: Yes Status: Acute - Plan Plan: 1. IV fluids 2. Anti-platelet therapy, anti coagulation, statin therapy 3. Speech and physical therapy 4. DVT prophylaxis 5. Lipid profile 6. Neurology consultation 7. Will discuss with [facility] who installed the pacemaker to the see if pacemaker is compatible to MRI 8. GI and DVT prophylaxis - Advance Directives Does patient have a Living Will: No Does patient have a Durable POA for Healthcare: No
[2017-11-08] MEDS ORDERED: GLUCAGON 1 MG/VIAL IM PRN (07:45)
[2017-11-08] MEDS ORDERED: D50W 25 GM/50 ML SYRINGE IV PRN (07:45)
--- NOTE | 2017-11-08 07:56 | RAD REPORT ---
EXAM DESCRIPTION: Adrián Brandon (2 Views)11/08/2017 7:03 am CLINICAL HISTORY: Chest pain COMPARISON: November 07, 2017 FINDINGS: The lungs appear clear of acute infiltrate. The heart is mildly enlarged. Pacemaker leads are in place. Postsurgical changes involve the chest IMPRESSION: No acute abnormalities displayed
--- NOTE | 2017-11-08 07:56 | RAD REPORT ---
EXAM DESCRIPTION: Adrián Single View11/07/2017 10:11 pm CLINICAL HISTORY: Chest pain COMPARISON: July 2016 FINDINGS: The lungs appear clear of acute infiltrate. The heart is mildly enlarged. Pacemaker leads are in place. Post surgical changes involve the chest IMPRESSION: No acute abnormalities displayed
[2017-11-08] MEDS ORDERED: INSULIN DETEMIR 100 UNIT/1 ML INSULIN SQ SCH (08:00)
[2017-11-08] MEDS: ENOXAPARIN 40 MG/0.4 ML SQ SCH (08:35)
[2017-11-08] MEDS: INSULIN -REGULAR HUMAN 50 UNIT/0.5 ML ML SQ SCH ×4 (08:36→21:41)
[2017-11-08] MEDS: TRAMADOL HCL 50 MG TAB PO PRN (08:37)
[2017-11-08] MEDS: CLOPIDOGREL 75 MG TABLET PO SCH (08:37)
[2017-11-08] MEDS: ASPIRIN EC 81 MG TAB PO SCH (08:46)
--- NOTE | 2017-11-08 09:56 | RAD REPORT ---
EXAM DESCRIPTION: CT - Head angio - 11/08/2017 5:35 am CLINICAL HISTORY: CVA, left leg deficit A preliminary written report was provided at the time of the study, and the report was reviewed prio r to final dictation. COMPARISON: CT head November 07 TECHNIQUE: During dynamic enhancement using nonionic IV contrast, axial 1 millimeter thick images of the head were obtained. MIP 3D reconstruction images were generated and reviewed. FINDINGS: No aneurysm or vascular malformation identifiable. Atherosclerotic changes in the cavernou s portion of the left internal carotid artery cause short-segment approximately 40% stenosis. No bran ch occlusion or significant atherosclerotic changes in the peripheral intracranial circulation. No ba silar artery abnormality. IMPRESSION: No aneurysm or vascular malformation. Short-segment 40% stenosis in the cavernous portion left internal carotid artery. This is probably no t significant and would not explain a right extremity in neurologic deficits.
[2017-11-08] MEDS: MORPHINE 4 MG/ML SYR IV PRN ×3 (09:59→20:54)
--- NOTE | 2017-11-08 10:05 | P.PN ---
Subjective Date of Service: 11/08/17 Chief Complaint: left upper and lower extremity weakness Subjective: Doing well Physical Examination - Vital Signs Temperature: 97.5 F Blood Pressure: 129/84 Pulse: 67 Respirations: 18 Pulse Ox (%): 100 - Physical Exam General: Alert, In no apparent distress, Oriented x3, Cooperative HEENT: Atraumatic, Mucous membr. moist/pink Neck: Supple Respiratory: Clear to auscultation bilaterally, Normal air movement Cardiovascular: Normal pulses, Regular rate/rhythm Gastrointestinal: Normal bowel sounds, Soft and benign, Non-distended, No tenderness, No masses, No rebound, No guarding Musculoskeletal: No erythema, No tenderness, No warmth Integumentary: No erythema, No warmth, No cyanosis Neurological: Abnormal strength (left sided weakness) - Studies Laboratory Data (last 24 hrs) 11/07/17 22:08: PT 11.7, INR 0.99, APTT 31.9 11/07/17 22:08: WBC 8.1, Hgb 15.7, Hct 45.5, Plt Count 282 11/07/17 22:08: Sodium 132 L, Potassium 3.9, BUN 11, Creatinine 0.90, Glucose 400 H, Magnesium 1.8, Total Bilirubin 0.4, AST 24, ALT 32, Alkaline Phosphatase 134 H Medications List Reviewed: Yes Assessment & Plan - Problems (Diagnosis) (1) Carotid arterial disease Current Visit: Yes Status: Chronic Plan: Patient with history of carotid stent. Will continue with Plavix and statin medication. Qualifiers: Laterality: left Qualified Code(s): I77.9 - Disorder of arteries and arterioles, unspecified (2) Hyperlipidemia Current Visit: Yes Status: Chronic Plan: Continue with anti-lipid medication. Qualifiers: Hyperlipidemia type: mixed hyperlipidemia Qualified Code(s): E78.2 - Mixed hyperlipidemia (3) Diabetes mellitus Current Visit: Yes Status: Chronic Plan: Will check A1c. Patient previously on insulin therapy. Will start low dose basal insulin. Will monitor and adjust appropriately. 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 Will monitor closely. Will try not to decrease blood pressure quickly. Qualifiers: Hypertension type: essential hypertension Qualified Code(s): I10 - Essential (primary) hypertension (5) History of CVA with residual deficit Current Visit: Yes Status: Acute Plan: History of recent CVA with left-sided weakness. Patient was treated in [facility]. Patient appeared to have gotten tPA. He was sent for rehabilitation at a skilled facility. Patient reports left-sided weakness at this time. CT angiogram negative. Will check to see if the patient can get stroke protocol MRI. Patient with pacemaker, if the pacemaker is compatible then will proceed with MRI. Will continue with physical therapy, speech therapy evaluate. Patient on Plavix and anti-lipid medication. Will consult inpatient rehab to see if the patient qualifies to go to a inpatient rehab facility. Neurology consulted. Await further recommendation. (6) History of left common carotid artery stent placement Current Visit: Yes Status: Chronic Plan: Patient with history of carotid stent. Patient to continue with current medications. (7) History of pacemaker Current Visit: Yes Status: Chronic Plan: Patient with history of pacemaker. Will continue with above plan of care. (8) Left leg paresthesias Current Visit: Yes Status: Acute Plan: Continue as above. (9) Left-sided weakness Current Visit: Yes Status: Acute Plan: Continue as above (10) Hypothyroidism Current Visit: Yes Status: Chronic Plan: Continue with medication Qualifiers: Hypothyroidism type: unspecified Qualified Code(s): E03.9 - Hypothyroidism , unspecified (11) Depression Current Visit: Yes Status: Chronic Plan: Continue with medication Qualifiers: Depression Type: unspecified Qualified Code(s): F32.9 - Major depressive disorder, single episode, unspecified (12) DM neuropathy, type II diabetes mellitus Current Visit: Yes Status: Chronic Plan: Will continue with Neurontin. Qualifiers: Diabetes mellitus jail insulin use: with intermediate accountant use Qualified Code( s): E11.40 - Type 2 diabetes mellitus with diabetic neuropathy, unspecified; Z79.4 - care home (current) use of insulin (13) BPH (benign prostatic hyperplasia) Current Visit: Yes Status: Chronic Plan: Medication reviewed. Will restart Flomax Qualifiers: Lower urinary tract symptom presence: unspecified whether lower urinary tract symptoms present Qualified Code(s): N40.0 - Benign prostatic hyperplasia without lower urinary tract symptoms (14) CAD (coronary artery disease) Current Visit: Yes Status: Chronic Plan: Continue as above Qualifiers: Coronary Disease-Associated Artery/Lesion type: unspecified vessel or lesion type Discharge Plan: Other (Inpatient rehab) Plan to discharge in: 24 Hours Time Spent Managing Pts Care (In Minutes): 55
--- NOTE | 2017-11-08 10:06 | EKG ---
Test Date: 2017-11-07 Test Time: 21:48:24 Telegraphic Typewriter Installer: CARIDAD MEASUREMENT RESULTS: Intervals: Rate: 95 LA: 248 QRSD: 86 QT: 342 QTc: 429 [place]: P: 52 LA: 248 QRS: -15 T: 123 INTERPRETIVE STATEMENTS: Sinus rhythm with 1st degree AV block Inferior infarct, age undetermined Possible Anterolateral infarct, age undetermined Abnormal ECG Compared to ECG 07/30/2016 17:22:07 No significant changes Electronically Signed On 11-08-17 06:22:53 CDT by Igor Gordillo
--- NOTE | 2017-11-08 10:37 | ECHO ---
HEIGHT: 5 ft 7 in WEIGHT: 195 lb 0 oz DATE OF STUDY: 11/08/[address]: Heather Gaffney MD 2-DIMENSIONAL: YES M.MODE: YES DOPPLER: YES COLOR FLOW: YES TDS: YES PORTABLE: NO DEFINITY: NO BUBBLE STUDY: NO DIAGNOSIS: STROKE CARDIAC HISTORY: CATHERIZATION: YES SURGERY: YES PROSTHETIC VALVE: NO PACEMAKER: YES MEASUREMENTS (cm) DIASTOLIC (NORMALS) SYSTOLIC (NORMALS) IVSd 0.9 (0.6-1.2) LA Diam 4.4 (1.9-4.0) LVEF 59% LVIDd 4.4 (3.5-5.7) LVIDs 3.0 (2.0-3.5) %FS 31% LVPWd 1.0 (0.6-1.2) Ao Diam 2.9 (2.0-3.7) 2 DIMENSIONAL ASSESSMENT: RIGHT ATRIUM: NORMAL LEFT ATRIUM: DILATED RIGHT VENTRICLE: NORMAL LEFT VENTRICLE: NORMAL TRICUSPID VALVE: NORMAL MITRAL VALVE: NORMAL PULMONIC VALVE: NORMAL AORTIC VALVE: NORMAL PERICARDIAL EFFUSION: NONE AORTIC ROOT: NORMAL LEFT VENTRICULAR WALL MOTION: ANTERIOR SEPTAL HYPOKINESIS. DOPPLER/COLOR FLOW: TRACE MITRAL REGURGITATION. COMMENTS: NORMAL LEFT VENTRICULAR EJECTION FRACTION WITH ANTERIOR SEPTAL HYPOKINESIS. DILATED LEFT ATRIUM. TRACE MITRAL REGURGITATION. TECHNOLOGIST: Alvin WAY
[2017-11-08 11:21] LABS: Thyroid Stimulating Hormone 7.51 uIU/mL (0.36-3.74)
--- NOTE | 2017-11-08 12:19 | RAD REPORT ---
EXAM DESCRIPTION: MRI - Stroke Protocol - 11/08/2017 11:44 am CLINICAL HISTORY: CVA. COMPARISON: Head CT November 07, 2017. TECHNIQUE: 20 mL of Magne[place] was administered intravenously. Axial, sagittal and coronal magnetic r esonance imaging of the brain was obtained. MRA of the head and neck was performed. Source images wer e viewed and reconstructed at 360 degrees rotation. FINDINGS: The cat scan scan demonstrates a small area of increased density within the right parietal scalp. This results in artifact within a small portion of the right parietal lobe on the MRI. No significant abnormal signal within the brain is displayed. Diffusion-weighted/ADC mapping does not reveal evidence of an acute infarction. The ventricles are normal in caliber. An extra-axial fluid collection is not seen. No abnormal enhancement within the brain is identified. Fluid within the mastoid/sinuses is not seen. There is moderate plaque within the right carotid bulb. Mild to moderate plaque within the left carot id bulb is seen. The common carotid and external carotid arteries appear unremarkable. The vertebral arteries are generally codominant without visualization of a significant abnormality. There is mild narrowing of the distal left internal carotid artery. The basilar, anterior cerebral, middle cerebral and posterior cerebral arteries are unremarkable with out obstructs a do not demonstrate a significant stenosis. An aneurysm is not seen. IMPRESSION: 1. Unremarkable MRI brain. 2. Moderate plaque within the right carotid bulb appearing to result in approximately 50% stenosis. 3. Mild to moderate plaque within the left carotid bulb. 4. Mild narrowing of the distal left internal carotid artery.
--- NOTE | 2017-11-08 12:38 | RAD REPORT ---
EXAM DESCRIPTION: RAD - Barium Swallow Modified - 11/08/2017 12:28 pm CLINICAL HISTORY: CVA/dysphagia FINDINGS: Nineteen fluoroscopic spot images were obtained. laryngeal pentration : cleared with thin via straw mild pharyngeal residue : vallecular, pyrform with all other : mild delayed swallow reflex, reduced hyolaryngeal excursion fluoro time : 4.42 min
[2017-11-08] MEDS: TAMSULOSIN 0.4 MG SR CAP PO SCH (14:23)
[2017-11-08] MEDS: GABAPENTIN 400 MG CAP PO SCH (20:52)
[2017-11-08] MEDS: ATORVASTATIN 20 MG TAB PO SCH (20:52)
[2017-11-08] MEDS: FENOFIBRATE 48 MG TAB PO SCH (20:53)
--- NOTE | 2017-11-08 21:29 | CON ---
Consultation called because of possible stroke. History Of Present Illness: Mr. Rooney is a 57-year-old, right-handed male with reported multiple medical problems, which included per the patient 4 strokes with great recovery and 4 heart attacks, also with good recovery, and multiple stents placed in the heart. He reportedly had a strok e 2 weeks ago while in [place]. Stroke impacted his left face, arm, and leg, and he said he receive d medication and a tPA and did rehabilitation. He recovered well, but still did not complete rehab, and was reportedly discharged against medical advice. He continued to do fairly well until he develo ped more weakness yesterday, today is the , weakness of the left face, arm, and leg along with nu mbness and came to [facility]. He did have a head CT scan along with a CT angiogram. They did not show any acute ischemic or hemorrhagic change. He also had an MRI of the brain done, as repo rted his pacemaker was compatible with that, he does have a cardiac pacemaker, and the MRI of the bra in did not show any acute ischemic or hemorrhagic change. There is also no mention of prior strokes. It should be noted the patient has uncontrolled diabetes mellitus, and he said that he is frequentl y noncompliant and has had blood sugars in 600-700. While in hospital, his hemoglobin A1c 11.4. He did have a barium swallow study that did not show aspiration. Echocardiogram did not show thrombus o r clot, and his carotids on the neck MR angiogram showed around 40-50% stenosis in the right carotid bulb and mild to moderate plaque in the left carotid bulb. Since his admission, he thinks he is gett ing back towards normal, but still has some left-sided numbness and left leg weakness. Past Medical History: As indicated above, in addition to the gastroesophageal reflux, hypertension, anxiety, hypothyroidism, enlarged prostate, cataracts, fibromyalgia, dyslipidemia, diabetic neuropath y. Past Surgical History: Three-vessel bypass in 2002 and multiple stents placed, 4 stents per the nadine ent. Also multiple back surgeries. Pacemaker placed for severe bradycardia in May of this year. Bilateral arthroscopic knee surgeries, left arm erika placement, cholecystectomy, appendectomy, and t onsillectomy. Family History: Heart disease, hypertension in mother and diabetes and stroke in grandparents. Social History: No recent alcohol, tobacco, or IV drug use. Uses caffeinated drinks regularly. Allergies: NO KNOWN DRUG ALLERGIES. Medications: Plavix 75 mg daily, Flexeril 10 mg 3 times daily, Bentyl 10 mg twice daily, doxazosin 4 mg daily, fenofibrate 200 mg daily, [place] 10/325 1 every 4 hours as needed, ibuprofen 600 mg daily, Lantus 90 units every 12 hours, and Humulin R 25 units every 8 hours, Glucophage 1000 mg twice daily, Prilosec 20 mg daily, Lyrica 150 mg twice daily, Restoril 30 mg at bedtime, Zanaflex 4 mg every 8 ho urs, tramadol 50 mg every 6 hours as needed, and Effexor 37.5 mg twice daily. Review of Systems: He denies any recent fevers or chills, nausea or vomiting, arthralgias or myalgias. No rash. He argueta s have numbness and tingling with dysesthesia in the lower extremities from his diabetic neuropathy. Physical Examination: Vital Signs: Blood pressure 154/93, pulse 77, respiratory rate 16, temperature 97.5, oxygen saturati on 99-100% on room air, height 5 feet 7 inches, weight 195 pounds. BMI 30.58. General: Mr. Rooney is resting in bed. He is in no acute distress. He is normocephalic, atrauma tic. Sclerae anicteric. Oropharynx is moist and pink. Neck: Supple. Chest: Clear. Heart: Regular. Extremities: Show no edema or cyanosis. Neurologic: The patient does not have a drooping noted of the left nasal fold and he has good excurs ions and smiling. He does report decreased light touch temperature of the left V1, V2, and V3 distri butions of his face compared to the right side, otherwise intact cranial nerves. Motor examination i n the upper extremities is 5/5 proximally and distally in the right upper extremity, 5-/5 proximally and distally in the left upper extremity. In lower extremity, unable to lift his legs off the bed, h owever, there seems to be an effort component related to it, so then the patient has at least a 3+ to 4-/5 strength to the left lower extremity. Right side 5/5 proximally and distally. Sensory exam, d ecreased light touch and temperature in the left arm compared to the right, and the left leg compared to the right. Reflexes are suppressed and absent in the upper and lower extremities. Coordination intact in the upper extremities bilaterally and on the right side. Gait, the patient will be ambulat ed with physical therapy and gait belt. Laboratory Studies: Complete blood count with differential is completely normal, white blood cell is normal. Hemoglobin, hematocrit normal. Coagulation panel normal. Chemistries remarkable for gluco se ranging over 400. Hemoglobin A1c 11.4. Liver function studies show slightly elevated alkaline ph osphate 134, otherwise normal. Triglyceride elevated at 354, total cholesterol elevated 222. LDL ch olesterol 119, HDL cholesterol 32. The cholesterol to HDL ratio 6.94. TSH elevated at 7.51, free T4 1.05. Urinalysis is normal. Electrocardiogram shows sinus rhythm with first-degree AV block, and c hest x-ray shows no acute abnormalities. Assessment: Mr. Rooney is a 57-year-old patient with reportedly multiple strokes, although not ev ident on MRI of the brain, and he has significant cardiovascular risk factors reportedly multiple irene nts and multiple myocardial infarctions. He does have uncontrolled diabetes mellitus with his hemogl obin A1c elevated to 11.4, and the patient reports he is noncompliant with treatment and diet. Plan: 1.The patient may be evaluated for need for inpatient transfer, although again there is no clear alvaro dence of stroke on MRI of the brain, but he may have focal deficits related to his uncontrolled diabe travis mellitus. In any event, evaluate for physical and occupational therapy with inpatient requiremen ts. 2.Continue with Plavix, aspirin, aggressive management of blood sugars, and hypertension. 3.High-dose statin given the patient's elevated LDL. 4.Folate 1 mg daily. 5.Again, the patient was strongly counseled on changing diet, his exercise pattern should also jansen e to include at least 30 minutes of brisk exercise daily. 6.After discharge either in rehab or on the floor. The patient may follow up in Dr. Corley's clin ic 1 month later. RESHMA/VAMSHI Voice ID: [id number] Report ID: [id number]
[2017-11-08] MEDS: INSULIN DETEMIR 100 UNIT/1 ML INSULIN SQ SCH (21:41)
[2017-11-08] MEDS: VENLAFAXINE HCL 75 MG TABLET PO SCH (21:41)
[2017-11-09] MEDS: NA CHLORIDE 0.9% 1,000 ML IV SCH (03:59)
[2017-11-09] MEDS: ONDANSETRON 4 MG/2 ML VIAL IV PRN ×2 (04:08→20:53)
[2017-11-09] MEDS: MORPHINE 4 MG/ML SYR IV PRN ×4 (04:09→20:46)
[2017-11-09 04:42] LABS: Absolute Lymphocytes (CBC) 2.3 K/uL (0.7-4.9); Absolute Monocytes 0.5 K/uL (0.1-1.3); Absolute Neutrophil 4.2 K/uL (1.8-8.0); Basophils % 0.5 % (0-1.3); Eosinophils % 5.3 % (0-4.4); Hematocrit 42.7 % (39.6-49.0); MCH 29.5 pg (27.0-35.0); MCV 87.7 fL (80-100); MPV 8.8 fL (7.6-11.3); Monocytes % 7.1 % (3.3-12.3); RBC Red Blood Cell Count 4.87 M/uL (4.33-5.43)
[2017-11-09 04:54] LABS: BUN Blood Urea Nitrogen 12 mg/dL (7-18); Bicarbonate 29 mmol/L (21-32); Glucose Level 226 mg/dL (74-106); HDL Cholesterol 30 mg/dL (40-60); LDL Cholesterol, Calculated ND (<130); Potassium 3.9 mmol/L (3.5-5.1); Sodium Level 138 mmol/L (136-145)
[2017-11-09 05:10] LABS: LDL, Direct 139 mg/dL (100-129)
[2017-11-09] MEDS: LEVOTHYROXINE SOD 0.025 MG TAB PO SCH (05:55)
[2017-11-09] MEDS: PANTOPRAZOLE 40MG TABLET PO SCH (05:55)
[2017-11-09] MEDS: INSULIN -REGULAR HUMAN 50 UNIT/0.5 ML ML SQ SCH ×4 (07:30→20:45)
[2017-11-09] MEDS: INSULIN DETEMIR 100 UNIT/1 ML INSULIN SQ SCH ×3 (08:41→20:45)
--- NOTE | 2017-11-09 08:47 | P.PN ---
Subjective Date of Service: 11/09/17 Primary Care Provider: unknown Chief Complaint: left upper and lower extremity weakness Subjective: Improving Physical Examination - Vital Signs Temperature: 96.8 F Blood Pressure: 113/77 Pulse: 93 Respirations: 16 Pulse Ox (%): 97 - Physical Exam General: Alert, In no apparent distress, Oriented x3, Cooperative HEENT: Atraumatic Neck: Supple Respiratory: Clear to auscultation bilaterally, Normal air movement Cardiovascular: Normal pulses, Regular rate/rhythm Gastrointestinal: Normal bowel sounds, Soft and benign, Non-distended, No tenderness, No masses, No rebound, No guarding Musculoskeletal: No erythema, No tenderness, No warmth Neurological: Abnormal strength (Decreased strength to the left side. Slightly improved) Lymphatics: No axilla or inguinal lymphadenopathy - Studies Medications List Reviewed: Yes Assessment & Plan - Problems (Diagnosis) (1) Carotid arterial disease Onset Date: 11/08/17 Current Visit: Yes Status: Chronic Plan: Patient with history of carotid stent. Will continue with Plavix and statin medication. Qualifiers: Laterality: left Qualified Code(s): I77.9 - Disorder of arteries and arterioles, unspecified (2) Hyperlipidemia Onset Date: 11/08/17 Current Visit: Yes Status: Chronic Plan: Continue with anti-lipid medication. 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 No medication needed. Will monitor closely. Qualifiers: Hypertension type: essential hypertension Qualified Code(s): I10 - Essential (primary) hypertension (5) History of CVA with residual deficit Current Visit: Yes Status: Acute Plan: History of recent CVA with left-sided weakness. Patient was treated in [facility]. Patient appeared to have gotten tPA. He was sent for rehabilitation at a skilled facility. Patient reports left-sided weakness at this time. CT angiogram negative. MRI showed no CVA. Continue with medication. Await inpatient rehab approval. (6) History of left common carotid artery stent placement Onset Date: 11/08/17 Current Visit: Yes Status: Chronic Plan: Patient with history of carotid stent. Patient to continue with current medications. (7) History of pacemaker Onset Date: 11/08/17 Current Visit: Yes Status: Chronic Plan: Patient with history of pacemaker. Will continue with above plan of care. (8) Left leg paresthesias Onset Date: 11/08/17 Current Visit: Yes Status: Acute Plan: Continue as above. Improved. (9) Left-sided weakness Onset Date: 11/08/17 Current Visit: Yes Status: Acute Plan: Continue as above. Improved (10) Hypothyroidism Onset Date: 11/08/17 Current Visit: Yes Status: Chronic Plan: Continue with medication Qualifiers: Hypothyroidism type: unspecified Qualified Code(s): E03.9 - Hypothyroidism , unspecified (11) Depression Onset Date: 11/08/17 Current Visit: Yes Status: Chronic Plan: Continue with medication Qualifiers: Depression Type: unspecified Qualified Code(s): F32.9 - Major depressive disorder, single episode, unspecified (12) DM neuropathy, type II diabetes mellitus Onset Date: 11/08/17 Current Visit: Yes Status: Chronic Plan: Will continue with Neurontin. 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 Will restart Flomax Qualifiers: Lower urinary tract symptom presence: unspecified whether lower urinary tract symptoms present Qualified Code(s): N40.0 - Benign prostatic hyperplasia without lower urinary tract symptoms (14) CAD (coronary artery disease) Onset Date: 11/08/17 Current Visit: Yes Status: Chronic Plan: Continue as above Qualifiers: Coronary Disease-Associated Artery/Lesion type: unspecified vessel or lesion type Discharge Plan: Other (inpatient rehab) Plan to discharge in: 24 Hours Time Spent Managing Pts Care (In Minutes): 55
[2017-11-09] MEDS ORDERED: HOME MED 1 EA UNK (Fenofibrate,Micronized [Fenofibrate] 200 MG) PO SCH (09:00)
[2017-11-09] MEDS: CLOPIDOGREL 75 MG TABLET PO SCH (09:08)
[2017-11-09] MEDS: ASPIRIN EC 81 MG TAB PO SCH (09:08)
[2017-11-09] MEDS: GABAPENTIN 400 MG CAP PO SCH ×2 (09:08→20:44)
[2017-11-09] MEDS: ENOXAPARIN 40 MG/0.4 ML SQ SCH (09:08)
[2017-11-09] MEDS: TAMSULOSIN 0.4 MG SR CAP PO SCH (09:08)
[2017-11-09] MEDS: VENLAFAXINE HCL 75 MG TABLET PO SCH ×2 (09:08→20:44)
[2017-11-09] MEDS: ATORVASTATIN 20 MG TAB PO SCH (20:44)
[2017-11-09] MEDS: FENOFIBRATE 48 MG TAB PO SCH (20:45)
[2017-11-10] MEDS: MORPHINE 4 MG/ML SYR IV PRN ×3 (01:01→20:57)
[2017-11-10] MEDS: LEVOTHYROXINE SOD 0.025 MG TAB PO SCH (06:03)
[2017-11-10] MEDS: PANTOPRAZOLE 40MG TABLET PO SCH (06:03)
[2017-11-10] MEDS: INSULIN -REGULAR HUMAN 50 UNIT/0.5 ML ML SQ SCH ×4 (07:30→20:57)
[2017-11-10] MEDS: ONDANSETRON 4 MG/2 ML VIAL IV PRN (09:12)
[2017-11-10] MEDS: INSULIN DETEMIR 100 UNIT/1 ML INSULIN SQ SCH ×2 (09:16→20:56)
[2017-11-10] MEDS: ENOXAPARIN 40 MG/0.4 ML SQ SCH (09:18)
[2017-11-10] MEDS: GABAPENTIN 400 MG CAP PO SCH ×2 (09:19→20:55)
[2017-11-10] MEDS: TAMSULOSIN 0.4 MG SR CAP PO SCH (09:19)
[2017-11-10] MEDS: CLOPIDOGREL 75 MG TABLET PO SCH (09:20)
[2017-11-10] MEDS: TRAMADOL HCL 50 MG TAB PO PRN (09:20)
[2017-11-10] MEDS: VENLAFAXINE HCL 75 MG TABLET PO SCH ×2 (09:20→20:56)
[2017-11-10] MEDS: ASPIRIN EC 81 MG TAB PO SCH (09:21)
--- NOTE | 2017-11-10 12:25 | P.PN ---
Subjective Date of Service: 11/10/17 Primary Care Provider: unknown Chief Complaint: left upper and lower extremity weakness Subjective: Improving (Patient with better strength to the left side.) Physical Examination - Vital Signs Temperature: 97.4 F Blood Pressure: 163/94 Pulse: 81 Respirations: 19 Pulse Ox (%): 100 - Physical Exam General: Alert, In no apparent distress, Oriented x3, Cooperative HEENT: Atraumatic Neck: Supple Respiratory: Clear to auscultation bilaterally, Normal air movement Cardiovascular: Normal pulses, Regular rate/rhythm Gastrointestinal: Normal bowel sounds, Soft and benign, Non-distended, No tenderness, No masses, No rebound, No guarding Musculoskeletal: No erythema, No tenderness, No warmth Integumentary: No tenderness/swelling, No erythema, No warmth, No cyanosis Neurological: Normal affect, Abnormal strength (Patient has better strength to the left lower extremity.) Lymphatics: No axilla or inguinal lymphadenopathy - Studies Medications List Reviewed: Yes Assessment & Plan - Problems (Diagnosis) (1) Carotid arterial disease Onset Date: 11/08/17 Current Visit: Yes Status: Chronic Plan: Patient with history of carotid stent. Will continue with Plavix and statin medication. Patient denied to go to inpatient rehab. Recommendation for skilled placement. This was discussed in detail with patient. Patient agrees to skilled placement. Will have certified social workers in health care evaluate. Anticipate discharge to skilled facility when approved. Continue with PT. Qualifiers: Laterality: left Qualified Code(s): I77.9 - Disorder of arteries and arterioles, unspecified (2) Hyperlipidemia Onset Date: 11/08/17 Current Visit: Yes Status: Chronic Plan: Continue with anti-lipid medication. Qualifiers: Hyperlipidemia type: mixed hyperlipidemia Qualified Code(s): E78.2 - Mixed hyperlipidemia (3) Diabetes mellitus Onset Date: 11/08/17 Current Visit: Yes Status: Chronic Plan: Will continue to adjust medication-Insulin for better control Qualifiers: Diabetes mellitus type: type 2 Diabetes mellitus fdc insulin use: with fdc use Diabetes mellitus complication status: with other specified complication Qualified Code(s): E11.69 - Type 2 diabetes mellitus with other specified complication; Z79.4 - intermediate manager (current) use of insulin (4) Hypertension Onset Date: 11/08/17 Current Visit: Yes Status: Chronic Plan: Blood pressure fluctuating. Will monitor closely. Patient may require ARABELLA- inhibitor if elevated. Qualifiers: Hypertension type: essential hypertension Qualified Code(s): I10 - Essential (primary) hypertension (5) History of CVA with residual deficit Current Visit: Yes Status: Acute Plan: MRI shows no acute stroke. Patient now with better left sided strength. Continue with physical therapy. Patient denied to go to inpatient rehab. Patient encouraged to go to a skilled facility. This was addressed in detail. Patient agrees to skilled facility placement. Await approval for skilled placement. Continue with physical therapy at this time. Continue with above (6) History of left common carotid artery stent placement Onset Date: 11/08/17 Current Visit: Yes Status: Chronic Plan: Patient with history of carotid stent. Patient to continue with current medications. (7) History of pacemaker Onset Date: 11/08/17 Current Visit: Yes Status: Chronic Plan: Patient with history of pacemaker. Will continue with above plan of care. (8) Left leg paresthesias Onset Date: 11/08/17 Current Visit: Yes Status: Acute Plan: Continue as above. Improved. (9) Left-sided weakness Onset Date: 11/08/17 Current Visit: Yes Status: Acute Plan: Continue as above. Improved (10) Hypothyroidism Onset Date: 11/08/17 Current Visit: Yes Status: Chronic Plan: Continue with medication Qualifiers: Hypothyroidism type: unspecified Qualified Code(s): E03.9 - Hypothyroidism , unspecified (11) Depression Onset Date: 11/08/17 Current Visit: Yes Status: Chronic Plan: Continue with medication Qualifiers: Depression Type: unspecified Qualified Code(s): F32.9 - Major depressive disorder, single episode, unspecified (12) DM neuropathy, type II diabetes mellitus Onset Date: 11/08/17 Current Visit: Yes Status: Chronic Plan: Will continue with Neurontin. Qualifiers: Diabetes mellitus moth exterminator insulin use: with fdc use Qualified Code( s): E11.40 - Type 2 diabetes mellitus with diabetic neuropathy, unspecified; Z79.4 - intermediate manager (current) use of insulin (13) BPH (benign prostatic hyperplasia) Onset Date: 11/08/17 Current Visit: Yes Status: Chronic Plan: Continue with medication Qualifiers: Lower urinary tract symptom presence: unspecified whether lower urinary tract symptoms present Qualified Code(s): N40.0 - Benign prostatic hyperplasia without lower urinary tract symptoms (14) CAD (coronary artery disease) Onset Date: 11/08/17 Current Visit: Yes Status: Chronic Plan: Continue as above Qualifiers: Coronary Disease-Associated Artery/Lesion type: unspecified vessel or lesion type Discharge Plan: Other (Skilled placement facility) Plan to discharge in: 24 Hours Time Spent Managing Pts Care (In Minutes): 55
[2017-11-10] MEDS: ATORVASTATIN 20 MG TAB PO SCH (20:55)
[2017-11-10] MEDS: FENOFIBRATE 48 MG TAB PO SCH (20:56)
[2017-11-11] MEDS: LEVOTHYROXINE SOD 0.025 MG TAB PO SCH (06:25)
[2017-11-11] MEDS: PANTOPRAZOLE 40MG TABLET PO SCH (06:25)
[2017-11-11] MEDS: INSULIN -REGULAR HUMAN 50 UNIT/0.5 ML ML SQ SCH ×4 (07:30→21:00)
[2017-11-11] MEDS: MORPHINE 4 MG/ML SYR IV PRN (07:53)
[2017-11-11] MEDS: ONDANSETRON 4 MG/2 ML VIAL IV PRN (07:53)
[2017-11-11] MEDS: GABAPENTIN 400 MG CAP PO SCH ×2 (08:00→21:11)
[2017-11-11] MEDS: ASPIRIN EC 81 MG TAB PO SCH (08:00)
[2017-11-11] MEDS: INSULIN DETEMIR 100 UNIT/1 ML INSULIN SQ SCH ×2 (08:00→21:12)
[2017-11-11] MEDS: ENOXAPARIN 40 MG/0.4 ML SQ SCH (08:00)
[2017-11-11] MEDS: VENLAFAXINE HCL 75 MG TABLET PO SCH ×2 (08:00→21:11)
[2017-11-11] MEDS: TAMSULOSIN 0.4 MG SR CAP PO SCH (08:00)
[2017-11-11] MEDS: CLOPIDOGREL 75 MG TABLET PO SCH (08:01)
[2017-11-11] MEDS ORDERED: HYDROCODONE/APAP 5/325 MG TAB PO PRN (14:27)
--- NOTE | 2017-11-11 15:36 | PN ---
Subjective: The patient currently lying in bed. He looks comfortable. No issues overnight. No jessi st pain. No abdominal pain. We are still awaiting for the insurance approval for his skilled [facility] facility. Objective: Vital signs: Blood pressure 110/75, respiratory rate 16, pulse 85, and temperature 97.8. General: He is fully alert, oriented x3. Does not look in any distress. HEENT: Atraumatic, normocephalic. PERRLA. Oral mucosa is moist. Neck: Supple. No JVD. No carotid bruits. Chest: Clear to auscultation. Good air entry. Heart: Regular rate and rhythm. S1, S2 normal. No gallop or murmur. Abdomen: Soft, nontender. No masses. No hepatosplenomegaly. Positive bowel sounds. Extremities: No clubbing, cyanosis, or edema. No calf tenderness noted. Neurologic: Grossly intact except weakness in his left lower extremity. Laboratory Data: Today labs, CBC within normal. Chemistry within normal except for glucose 226, hem oglobin A1c 11.4, TSH of 7.51, and T4 of 1.05. Assessment And Plan: 1.Peripheral vascular disease with carotid artery stenosis. The patient had already carotid stent. He is on Plavix and a statin. 2.History of cerebrovascular accident with residual deficit. Most recent MRI did not show any acute stroke. The patient has right-sided weakness. Continue with physical therapy. He was denied for i npatient rehab, but we [facility] and that is pending approval and won't happen until Monday according to the charge nurse. 3.Hyperlipidemia. Continue statin. Lipid profile reviewed. 4.Diabetes mellitus, not well controlled. The patient is currently on an insulin detemir 17 twice a day. I will increase that to 19 twice a day and insulin sliding scale. 5.Hypothyroidism. TSH is elevated I will increase his Synthroid to 50. 6.Severe hypertriglyceridemia. Advised the patient diet, low fat. Continue Tricor 48 mg once a day . 7.Depression, chronic, observe. 8.Diabetic neuropathy, chronic. Continue Neurontin. 9.Benign prostatic hyperplasia. Continue Flomax. 10.Depression, stable. Continue on Effexor. 11.Deep venous thrombosis prophylaxis, on Lovenox. 12.Discharge hopefully Monday if SNF approved, otherwise the patient may end up going home. ABHISHEK/VAMSHI Voice ID: [id number] Report ID: [id number]
[2017-11-11] MEDS: ATORVASTATIN 20 MG TAB PO SCH (21:11)
[2017-11-11] MEDS: FENOFIBRATE 48 MG TAB PO SCH (21:12)
[2017-11-12] MEDS: LEVOTHYROXINE SOD 0.05 MG TABLET PO SCH (05:50)
[2017-11-12] MEDS: PANTOPRAZOLE 40MG TABLET PO SCH (05:50)
[2017-11-12] MEDS: ENOXAPARIN 40 MG/0.4 ML SQ SCH (08:46)
[2017-11-12] MEDS: GABAPENTIN 400 MG CAP PO SCH ×2 (08:46→20:48)
[2017-11-12] MEDS: TAMSULOSIN 0.4 MG SR CAP PO SCH (08:46)
[2017-11-12] MEDS: CLOPIDOGREL 75 MG TABLET PO SCH (08:46)
[2017-11-12] MEDS: INSULIN -REGULAR HUMAN 50 UNIT/0.5 ML ML SQ SCH ×4 (08:47→20:50)
[2017-11-12] MEDS: VENLAFAXINE HCL 75 MG TABLET PO SCH ×2 (08:47→20:49)
[2017-11-12] MEDS: ASPIRIN EC 81 MG TAB PO SCH (08:47)
[2017-11-12] MEDS: INSULIN DETEMIR 100 UNIT/1 ML INSULIN SQ SCH ×2 (08:48→20:50)
--- NOTE | 2017-11-12 14:52 | PN ---
Subjective: Currently, the patient lying in bed. He looks comfortable. He has no chest pain. No abdominal pain. No arm or leg pain or weakness. He is eating his lunch. Objective: Vital Signs: Blood pressure is 119/76, heart rate 18, pulse 86, temperature 97, he is saturating 95% on room air. General: He is alert and oriented x3. Does not look in any distress. HEENT: Atraumatic, normocephalic. PERRLA. Oral mucosa is moist. Neck: Supple. No JVD. No carotid bruits. Chest: Clear to auscultation. Good air entry. Heart: Regular rate and rhythm. S1, S2 normal. No gallop or murmur. Abdomen: Soft, nontender. No masses. No hepatosplenomegaly. Positive bowel sounds. Extremities: No clubbing, cyanosis, or edema. No calf tenderness. Neurologic: Grossly intact today. Cranial nerves exam 2 through 12 intact. Normal sensation. Normal reflexes. Normal muscle strength in all 4 extremities. I did not notice any muscle weakness. Laboratory Data: No labs today. Assessment And Plan: 1. Peripheral vascular disease with history of carotid artery stenosis. The patient is on statin and Plavix, status post carotid stent placement. 2. History of cerebrovascular accident with residual deficit. Neurology exam today was all normal. Most recent MRI did not show any acute infarction. Continue physical therapy. The plan [facility] to [facility], but I think we should repeat physical therapy evaluation tomorrow and maybe the patient go home as I could not appreciate any neurological deficits on my exam. 3. Hyperlipidemia. Continue statin. 4. Diabetes mellitus. Hemoglobin A1c 11.4. Glucose better controlled today since we increase insulin yesterday to 19 units of insulin detemir twice a day cont insulin sliding scale. 5. Hypothyroidism, I increased his Synthroid to 50 mcg yesterday 6. Hypertriglyceridemia. The patient is on Tricor once a day. 7. Depression, chronic, stable. 8. Diabetic neuropathy, on Neurontin, continue. 9. Benign prostatic hyperplasia. Continue Flomax as before. 10. Deep venous thrombosis prophylaxis with Lovenox. 11. Discharge Plan since neurologic exam seems normal today. I think we will need to get repeat physical therapy eval tomorrow and decide if the patient really need to go to SNF as it was planned monday or he can go home, maybe with home health. MT/VAMSHI Voice ID: [id number] Report ID: [id number] MEREDITH
[2017-11-12] MEDS: FENOFIBRATE 48 MG TAB PO SCH (20:49)
[2017-11-12] MEDS: ATORVASTATIN 20 MG TAB PO SCH (20:49)
[2017-11-13] MEDS: LEVOTHYROXINE SOD 0.05 MG TABLET PO SCH (05:53)
[2017-11-13] MEDS: PANTOPRAZOLE 40MG TABLET PO SCH (05:53)
[2017-11-13] MEDS: INSULIN -REGULAR HUMAN 50 UNIT/0.5 ML ML SQ SCH (08:43)
[2017-11-13] MEDS: ENOXAPARIN 40 MG/0.4 ML SQ SCH (08:57)
[2017-11-13] MEDS: ASPIRIN EC 81 MG TAB PO SCH (08:59)
[2017-11-13] MEDS: GABAPENTIN 400 MG CAP PO SCH (08:59)
[2017-11-13] MEDS: TAMSULOSIN 0.4 MG SR CAP PO SCH (08:59)
[2017-11-13] MEDS: CLOPIDOGREL 75 MG TABLET PO SCH (08:59)
[2017-11-13] MEDS ORDERED: INSULIN DETEMIR 100 UNIT/1 ML INSULIN SQ SCH (09:00)
[2017-11-13] MEDS: VENLAFAXINE HCL 75 MG TABLET PO SCH (09:49)
--- NOTE | 2017-11-13 09:57 | P.DS ---
Admission Date: 11/08/17 Discharge Date: 11/13/17 Primary Care Provider: Dr. Kiran([place], [place]) Disposition: MD HOME/HOME HEALTH CARE Discharge Condition: GOOD Reason for Admission: left upper and lower extremity weakness Consultations: Neurology-Dr. Corley Procedures: MRI: FINDINGS: The cat scan scan demonstrates a small area of increased density within the right parietal scalp. This results in artifact within a small portion of the right parietal lobe on the MRI. No significant abnormal signal within the brain is displayed. Diffusion-weighted/ADC mapping does not reveal evidence of an acute infarction. The ventricles are normal in caliber. An extra-axial fluid collection is not seen. No abnormal enhancement within the brain is identified. Fluid within the mastoid/sinuses is not seen. There is moderate plaque within the right carotid bulb. Mild to moderate plaque within the left carotid bulb is seen. The common carotid and external carotid arteries appear unremarkable. The vertebral arteries are generally codominant without visualization of a significant abnormality. There is mild narrowing of the distal left internal carotid artery. The basilar, anterior cerebral, middle cerebral and posterior cerebral arteries are unremarkable without obstructs a do not demonstrate a significant stenosis. An aneurysm is not seen. IMPRESSION: 1. Unremarkable MRI brain. 2. Moderate plaque within the right carotid bulb appearing to result in approximately 50% stenosis. 3. Mild to moderate plaque within the left carotid bulb. 4. Mild narrowing of the distal left internal carotid artery. Echocardiogram: Echocardiogram ejection fraction 59%. Normal left ventricular ejection fraction with anterior septal hypokinesis. Dilated left atrium. Trace mitral regurgitation. CT angiogram: FINDINGS: No aneurysm or vascular malformation identifiable. Atherosclerotic changes in the cavernous portion of the left internal carotid artery cause short -segment approximately 40% stenosis. No branch occlusion or significant atherosclerotic changes in the peripheral intracranial circulation. No basilar artery abnormality. IMPRESSION: No aneurysm or vascular malformation. Short-segment 40% stenosis in the cavernous portion left internal carotid artery. This is probably not significant and would not explain a right extremity in neurologic deficits - Problems (1) Carotid arterial disease Onset Date: 11/08/17 Current Visit: Yes Status: Chronic Qualifiers: Laterality: left Qualified Code(s): I77.9 - Disorder of arteries and arterioles, unspecified (2) Hyperlipidemia Onset Date: 11/08/17 Current Visit: Yes Status: Chronic Qualifiers: Hyperlipidemia type: mixed hyperlipidemia Qualified Code(s): E78.2 - Mixed hyperlipidemia (3) Diabetes mellitus Onset Date: 11/08/17 Current Visit: Yes Status: Chronic Qualifiers: Diabetes mellitus type: type 2 Diabetes mellitus termite treater insulin use: with termite treater use Diabetes mellitus complication status: with other specified complication Qualified Code(s): E11.69 - Type 2 diabetes mellitus with other specified complication; Z79.4 - extermination inspector (current) use of insulin (4) Hypertension Onset Date: 11/08/17 Current Visit: Yes Status: Chronic Qualifiers: Hypertension type: essential hypertension Qualified Code(s): I10 - Essential (primary) hypertension (5) History of CVA with residual deficit Current Visit: Yes Status: Acute (6) History of left common carotid artery stent placement Onset Date: 11/08/17 Current Visit: Yes Status: Chronic (7) History of pacemaker Onset Date: 11/08/17 Current Visit: Yes Status: Chronic (8) Left leg paresthesias Onset Date: 11/08/17 Current Visit: Yes Status: Acute (9) Left-sided weakness Onset Date: 11/08/17 Current Visit: Yes Status: Acute (10) Hypothyroidism Onset Date: 11/08/17 Current Visit: Yes Status: Chronic Qualifiers: Hypothyroidism type: unspecified Qualified Code(s): E03.9 - Hypothyroidism , unspecified (11) Depression Onset Date: 11/08/17 Current Visit: Yes Status: Chronic Qualifiers: Depression Type: unspecified Qualified Code(s): F32.9 - Major depressive disorder, single episode, unspecified (12) DM neuropathy, type II diabetes mellitus Onset Date: 11/08/17 Current Visit: Yes Status: Chronic Qualifiers: Diabetes mellitus half-way insulin use: with termite treater use Qualified Code( s): E11.40 - Type 2 diabetes mellitus with diabetic neuropathy, unspecified; Z79.4 - [facility] (current) use of insulin (13) BPH (benign prostatic hyperplasia) Onset Date: 11/08/17 Current Visit: Yes Status: Chronic Qualifiers: Lower urinary tract symptom presence: unspecified whether lower urinary tract symptoms present Qualified Code(s): N40.0 - Benign prostatic hyperplasia without lower urinary tract symptoms (14) CAD (coronary artery disease) Onset Date: 11/08/17 Current Visit: Yes Status: Chronic Qualifiers: Coronary Disease-Associated Artery/Lesion type: unspecified vessel or lesion type Brief History of Present Illness: 57 yo HM presented to the ER with left sided weakness. He has history of CVA, HTN, DM, Pacemaker. Patient had not been compliant with his medication. Patient was admitted for further evaluation. Hospital Course: During the course of his stay the patient was evaluated for left-sided weakness. MRI showed no acute stroke. Patient had not been compliant with his medication aspirin and Plavix. Echocardiogram showed ejection fraction of 59%. CT angiogram showed no aneurysm or vascular malformation. 40% stenosis to the left internal carotid was noted. Patient was evaluated by neurology. Aspirin and Plavix were continued. During his stay the patient was evaluated for inpatient rehab. The patient was denied. Patient was then assessed for skilled placement. During his process of waiting for skilled placement. His condition improved to the point were the patient was able to walk appropriately. Patient desired to go home at discharge. At discharge patient will continue with aspirin 81 mg daily and Plavix 75 mg daily. Compliance with medication will need to be stressed and followed. Patient may follow up with neurology in 2-4 weeks to monitor his progress. Patient will continue with home health and physical therapy at discharge. Patient has diabetes. Hemoglobin A1c elevated. Better diabetic control will be required. Medications were adjusted during the course of his stay. Glipizide discontinued. At discharge patient will continue with Levemir 21 units subcu twice daily and metformin 1000 mg 1 pill twice daily. Recommendation is to maintain blood sugars less 140 fasting and less than 200 after meals. Further adjustment can be done by his PCP. Patient has hypertension. Patient is taking Flomax for BPH. Blood pressure remained stable this time. No additional medication for blood pressure medication is required. Recommendation is to maintain blood pressures less 150/ 80. Further adjustment can be done by his PCP. Patient has hyperlipidemia. Patient will continue with Lipitor 80 mg daily and fenofibrate 40 mg daily. Further adjustment can be done by his PCP. Patient has a history of pacemaker. Patient will continue to follow up with cardiology as an outpatient. Patient has hypothyroidism. His medication was adjusted due to his tsh level. Patient will continue with Levoxyl 50 mcg daily. Recommendation is to recheck tsh and free T4 in 4-6 weeks to monitor his progress. Patient with history of diabetic neuropathy. Patient will continue with Neurontin 600 mg 1 pill twice daily. Patient has GERD. Patient continue with Protonix 40 mg 1 pill once daily. Patient has BPH. Patient will continue with Flomax 0.4 mg 1 pill once daily. Vital Signs/Physical Exam: Temp Pulse Resp BP Pulse Ox 96.9 F 95 H 18 124/82 99 11/13/17 08:00 11/13/17 08:00 11/13/17 08:00 11/13/17 08:00 11/13/17 08:00 General: Alert, In no apparent distress, Oriented x3, Cooperative HEENT: Atraumatic Neck: Supple, No Thyromegaly Respiratory: Clear to auscultation bilaterally, Normal air movement Cardiovascular: Normal pulses, Regular rate/rhythm Gastrointestinal: Normal bowel sounds, Soft and benign, Non-distended, No tenderness, No masses, No rebound, No guarding Musculoskeletal: No erythema, No tenderness, No warmth Integumentary: No tenderness/swelling, No erythema, No warmth, No cyanosis Neurological: Normal speech, Normal strength at 5/5 x4 extr, Normal tone, Normal affect Lymphatics: No axilla or inguinal lymphadenopathy Laboratory Data at Discharge: WBC 7.6 K/uL (4.3-10.9) 11/09/17 04:02 Hgb 14.4 g/dL (13.6-17.9) 11/09/17 04:02 Hct 42.7 % (39.6-49.0) 11/09/17 04:02 Plt Count 286 K/uL (152-406) 11/09/17 04:02 PT 11.7 SECONDS (9.5-12.5) 11/07/17 22:08 INR 0.99 11/07/17 22:08 APTT 31.9 SECONDS (24.3-36.9) 11/07/17 22:08 Sodium 138 mmol/L (136-145) 11/09/17 04:02 Potassium 3.9 mmol/L (3.5-5.1) 11/09/17 04:02 BUN 12 mg/dL (7-18) 11/09/17 04:02 Creatinine 0.60 mg/dL (0.55-1.3) 11/09/17 04:02 Glucose 226 mg/dL (74-106) H 11/09/17 04:02 Magnesium 2.0 mg/dL (1.8-2.4) 11/09/17 04:02 Total Bilirubin 0.4 mg/dL (0.2-1.0) 11/07/17 22:08 AST 24 U/L (15-37) 11/07/17 22:08 ALT 32 U/L (12-78) 11/07/17 22:08 Alkaline Phosphatase 134 U/L (45-117) H 11/07/17 22:08 Triglycerides 416 mg/dL (<150) H 11/09/17 04:02 Cholesterol 214 mg/dL (<200) H 11/09/17 04:02 LDL Cholesterol Direct 139 mg/dL (100-129) H 11/09/17 04:02 HDL Cholesterol 30 mg/dL (40-60) L 11/09/17 04:02 Cholesterol/HDL Ratio 7.13 11/09/17 04:02 Home Medications: Clopidogrel Bisulfate [Clopidogrel] 75 mg PO DAILY 03/29/13 Metformin HCl [Glucophage*] 1,000 mg PO BIDWM 03/29/13 Tramadol HCl 50 mg PO TID 03/29/13 Venlafaxine HCl [Effexor*] 75 mg PO BID 03/29/13 Gabapentin [Neurontin] 800 mg PO BID 11/08/17 Pantoprazole [Protonix Tab*] 40 mg PO DAILY 11/08/17 Tamsulosin [Flomax*] 0.4 mg PO DAILY 11/08/17 Aspirin [Aspirin EC 81 MG] 81 mg PO DAILY #90 tablet. 11/13/17 Fenofibrate [Tricor*] 48 mg PO BEDTIME #30 tab 11/13/17 Insulin Detemir [Levemir*] 21 units SQ BID #1 ml 11/13/17 Levothyroxine [Synthroid*] 0.05 mg PO [id number] #30 tablet 11/13/17 Pantoprazole [Protonix Tab*] 40 mg PO DAILYAC #30 tab 11/13/17 Simvastatin 80 mg PO BEDTIME #30 tablet 11/13/17 New Medications: Aspirin [Aspirin EC 81 MG] 81 mg PO DAILY #90 tablet. Fenofibrate [Tricor*] 48 mg PO BEDTIME #30 tab Insulin Detemir [Levemir*] 21 units SQ BID #1 ml Levothyroxine [Synthroid*] 0.05 mg PO [id number] #30 tablet Pantoprazole [Protonix Tab*] 40 mg PO DAILYAC #30 tab Simvastatin 80 mg PO BEDTIME #30 tablet Patient Discharge Instructions: 1. Follow up with PCP in one week to follow up the hospitalization. 2. Patient presented with left-sided weakness. MRI showed no acute stroke. Echocardiogram showed ejection fraction of 59%. CT angiogram showed no aneurysm or vascular malformation. 40% stenosis to the left internal carotid was noted. Patient was evaluated by neurology. His condition improved to the point were the patient was able to walk appropriately. Patient desired to go home at discharge. At discharge patient will continue with aspirin 81 mg daily and Plavix 75 mg daily. Compliance with medication will need to be stressed and followed. Patient may follow up with neurology in 2-4 weeks to monitor his progress. Patient will continue with home health and physical therapy at discharge. 3. Patient has diabetes. Hemoglobin A1c elevated. Better diabetic control will be required. Medications have been adjusted. Glipizide discontinued. At discharge patient will continue with Levemir 21 units subcu twice daily and metformin 1000 mg 1 pill twice daily. Recommendation is to maintain blood sugars less 140 fasting and less than 200 after meals. Further adjustment can be done by his PCP. 4. Patient has hypertension. Patient is taking Flomax for BPH. Blood pressure remained stable this time. No additional medication for blood pressure medication is required. Recommendation is to maintain blood pressures less 150/ 80. Further adjustment can be done by his PCP. 5. Patient has hyperlipidemia. Patient will continue with Lipitor 80 mg daily and fenofibrate 40 mg daily. Further adjustment can be done by his PCP. 6. Patient has a history of pacemaker. Patient will continue to follow up with cardiology as an outpatient. 7. Patient has hypothyroidism. Medications adjusted. Levoxyl was increased. Patient will continue with Levoxyl 50 mcg daily. 8. Patient with history of diabetic neuropathy. Patient will continue with Neurontin 600 mg 1 pill twice daily. 9. Patient has GERD. Patient continue with Protonix 40 mg 1 pill once daily. 10. Patient has BPH. Medications adjusted. Patient will continue with Flomax 0.4 mg 1 pill once daily. Diet: ADA Activity: Fall precautions Time spent managing pt's care (in minutes): 55
[2017-11-13 11:05] VITALS: O2SAT 99
[2017-11-13 12:56] VITALS: BP 157/93; TEMP 97.7
== END 2017-11-13 12:14 | disposition home health service (06) ==
LOC: ER 21:39 → ERHOLD 11-08 00:53 → 4TH 11-08 01:40
PROVIDERS: ADMIT Hospitalist; ATTEND Hospitalist
DX: M62.81 Muscle weakness (generalized) (principal); I77.89 Other specified disorders of arteries and arterioles; E78.5 Hyperlipidemia, unspecified; E03.9 Hypothyroidism, unspecified; I10 Essential (primary) hypertension; N40.0 Benign prostatic hyperplasia without lower urinary tract symptoms; K21.9 Gastro-esophageal reflux disease without esophagitis; E11.40 Type 2 diabetes mellitus with diabetic neuropathy, unspecified; F32.9 Major depressive disorder, single episode, unspecified; I25.10 Atherosclerotic heart disease of native coronary artery without angina pectoris; Z86.73 Personal history of transient ischemic attack (TIA), and cerebral infarction without residual deficits; Z95.0 Presence of cardiac pacemaker
CPT/HCPCS: 36415 ×2; 70450; 70496; 70544; 70549; 70553; 71045; 71046; 74230; 80048 ×3; 80061 ×2; 80076; 81003; 82550; 82553; 82962 ×26; 83036; 83721; 83735 ×3; 84439; 84443; 84484; 85025 ×3; 85610; 85730; 92526 ×2; 92610; 93005; 93306; 97112; 97116 ×6; 97163; 97530 ×3; 99285; A9579; G0378 ×2; J1650 ×6; J2270; J2405 ×7; J7030 ×4; Q9967

== ENCOUNTER 2018-05-03 13:23 | Observation (INO) | payer OTHER ==
--- OUTSIDE RECORDS SUMMARY | 2018-05-03 13:26 | XMS REPORT ---
:1960 [facility] [address] [place] [address] [place] [id number] Care Team Providers Name Role Phone TERA COX Unavailable Unavailable JACQUELYN MONTES DE OCA Unavailable Unavailable NICHELLE PALACIOS Unavailable Unavailable Problems This patient has no known problems. Allergies, Adverse Reactions, Alerts This patient has no known allergies or adverse reactions. Medications This patient has no known medications. Results Test Description Test Time Test Comments Text Results Atomic Results Result Comments CTA BRAIN [place] [address] Patient Name: FAITH VANCE MR #: [id number] : 1960 Age/Sex: 57/M Req #: [id number] Adm Physician: TERA COX MD Ordered by: TERA COX MD Report #: [id number] Location: [facility] Room/Bed: [place] [address] Procedure: [id number] CT/CTA BRAIN Exam Date: 10/24/17 Exam Time: [...] PM Dictated By: ANA MARIA ARTEAGA MD 1631 Transcribed By: ANDREE on 10/24/17 1633 COPY TO: TERA COX MD CT BRAIN WO [place] [address] Patient Name: FAITH VANCE MR #: [id number] : 1960 Age/Sex: 57/M Req #: [id number] Adm Physician: Ordered by: ARLETH WAHL MD Report #: [id number] Location: Room/Bed: Procedure: [id number] CT/CT BRAIN WO Exam Date: 10/23/17 Exam [...] PM Dictated By: ANA MARIA ARTEAGA MD 164 Transcribed By: ANDREE on 10/23/17 164 COPY TO: ARLETH WAHL MD CTA CHEST [place] [address] Patient Name: FAITH VANCE MR #: [id number] : 1960 Age/Sex: 57/M Req #: [id number] Adm Physician: Ordered by: ARLETH WAHL MD Report #: [id number] Location: Room/Bed: Procedure: [id number] CT/CTA CHEST Exam Date: 10/23/17 Exam Time: [...] reviewed and is below limits set by [facility]). FINDINGS: Lines and Tubes: Pacemaker with leads [...] 1621 COPY TO: ARLETH WAHL MD CHEST [address] (PORTABLE) [place] [address] Patient Name: FAITH VANCE MR #: [id number] : 1960 Age/Sex: 57/M Req #: [id number] Adm Physician: Ordered by: ARLETH WAHL MD Report #: [id number] Location: ER Room/Bed: Procedure: [id number] DX/CHEST SINGLE (PORTABLE) Exam Date: 10/23/17 Exam [...] WAHL MD CT BRAIN WO [facility] [address] [place] [id number] Patient Name: FAITH VANCE MR #: [id number] : 1960 Age/Sex: 56/M Req #: [id number] Adm Physician: Ordered by: JACQUELYN MONTES DE OCA MD Report #: [id number] Location: ER Room/Bed: Procedure: [id number] CT/CT BRAIN WO Exam Date: Exam Time: [...] MONTES DE OCA MD CT CERVICAL SPINE [place] [address] Patient Name: FAITH VANCE MR #: [id number] : 1960 Age/Sex: 56/M Req #: [id number] Adm Physician: Ordered by: JACQUELYN MONTES DE OCA MD Report #: [id number] Location: ER Room/Bed: Procedure: [id number] CT/CT CERVICAL SPINE WO Exam Date: Exam [...] COPY TO: JACQUELYN MONTES DE OCA MD [place] [address] Patient Name: FAITH VANCE MR #: [id number] : 1960 Age/Sex: 56/M Req #: [id number] Adm Physician: Ordered by: JACQUELYN MONTES DE OCA MD Report #: [id number] Location: ER Room/Bed: Procedure: [id number] DX/CHEST SINGLE (PORTABLE) Exam Date: 04/04/17 Exam [...] COPY TO: JACQUELYN MONTES DE OCA MD HIP RIGHT 2-[address] (+/- PELVIS) [place] [address] Patient Name: FAITH VANCE MR #: [id number] : 1960 Age/Sex: 56/M Req #: [id number] Adm Physician: Ordered by: JACQUELYN MONTES DE OCA MD Report #: [id number] Location: ER Room/Bed: Procedure: DX/HIP RIGHT 2-3 [...] JACQUELYN MONTES DE OCA MD SP LUMBAR, [address] COMPLETE MIN 4VW [place] [address] Patient Name: FAITH VANCE MR #: [id number] : 1960 Age/Sex: 56/M Req #: [id number] Adm Physician: Ordered by: JACQUELYN MONTES DE OCA MD Report #: [id number] Location: ER Room/Bed: Procedure: DX/SP LUMBAR, COMPLETE [...] JACQUELYN MONTES DE OCA MD US ABDOMEN [place] [address] Patient Name: FAITH VANCE MR #: [id number] : 1960 Age/Sex: 56/M Req #: [id number] [facility] Physician: NICHELLE PALACIOS MD Ordered by: SCOTT AMIN MD Report #: [id number] Location: [facility] Room/Bed: [place] [address] Procedure: [id number] US/US ABDOMEN COMPLETE Exam Date: 03/08/17 Exam [...] COPY TO: SCOTT AMIN MD CHEST SINGLE [address] (PORTABLE) [place] [address] Patient Name: FAITH VANCE MR #: [id number] : 1960 Age/Sex: 56/M Req #: [id number] Adm Physician: Ordered by: JACQUELYN MONTES DE OCA MD Report #: [id number] Location: ER Room/Bed: Procedure: [id number] DX/CHEST SINGLE (PORTABLE) Exam Date: 03/05/17 Exam Time: 444 REPORT STATUS: Signed CHEST SINGLE (PORTABLE), 03/05/2017 [...]
[2018-05-03 14:09] LABS: Absolute Lymphocytes (CBC) 2.3 K/uL (0.7-4.9); Absolute Monocytes 0.5 K/uL (0.1-1.3); Absolute Neutrophil 3.7 K/uL (1.8-8.0); Basophils % 0.7 % (0-1.3); Eosinophils % 3.4 % (0-4.4); Hematocrit 42.1 % (39.6-49.0); Lymphocytes % 34.5 % (15.3-44.8); MCH 30.6 pg (27.0-35.0); MCV 88.1 fL (80-100); MPV 8.9 fL (7.6-11.3); Monocytes % 7.2 % (3.3-12.3); RBC Red Blood Cell Count 4.78 M/uL (4.33-5.43)
[2018-05-03 14:16] LABS: Protime INR 1.07
--- NOTE | 2018-05-03 14:22 | RAD REPORT ---
EXAM DESCRIPTION: CT - CTHCSPWOC - 05/03/2018 2:13 pm CLINICAL HISTORY: Trauma, head and neck injury. headache;Numbness/tingling COMPARISON: CT HEAD CSPINE MPR WO CONTRAST dated 09/22/2011; Stroke Protocol dated 11/08/2017; Head ang io dated 11/08/2017 TECHNIQUE: Axial 5 mm thick images of the head were obtained. Axial 2 mm thick images of the cervical spine were obtained with sagittal and coronal reconstruction images generated and reviewed. All CT scans are performed using dose optimization technique as appropriate and may include automated exposure control or mA/KV adjustment according to patient size. FINDINGS: CT HEAD WITHOUT CONTRAST: No acute hemorrhage, hydrocephalus or extra-axial collection is identified.No areas of brain edema or midline shift. The paranasal sinuses and mastoids are essentially clear.The calvarium is intact. CT CERVICAL SPINE WITHOUT CONTRAST: No fracture or subluxation.No prevertebral soft tissues swelling is identified. A left subclavian art bertrand stent noted. IMPRESSION: No acute intracranial or cervical spine findings.
[2018-05-03 14:30] LABS: ALT/SGPT 27 U/L (12-78); AST/SGOT 13 U/L (15-37); Albumin 3.7 g/dL (3.4-5.0); Alkaline Phosphatase 120 U/L (45-117); BUN Blood Urea Nitrogen 8 mg/dL (7-18); Bicarbonate 25 mmol/L (21-32); Bilirubin Direct 0.2 mg/dL (0-0.2); Bilirubin Total 0.7 mg/dL (0.2-1.0); Glucose Level 269 mg/dL (74-106); NT PRO-BNP 230 pg/mL (<125); Potassium 3.8 mmol/L (3.5-5.1); Protein, Total 7.2 g/dL (6.4-8.2); Sodium Level 136 mmol/L (136-145); Troponin (Emerg Dept Use Only) < 0.02 ng/mL (0.0-0.045)
--- NOTE | 2018-05-03 14:35 | RAD REPORT ---
EXAM DESCRIPTION: RAD - Chest Single View - 05/03/2018 2:21 pm CLINICAL HISTORY: CHEST PAIN Chest pain. COMPARISON: Chest Pa And Lat (2 Views) dated 11/08/2017; Chest Single View dated 11/07/2017; Chest Sin gle View dated 07/30/2016; CHEST SINGLE VIEW dated 04/15/2013 FINDINGS: Portable technique limits examination quality. The lungs are grossly clear. The heart is mildly prominent size with a dual lead pacer device present . No displaced fractures.Sternotomy wires noted. IMPRESSION: No acute intrathoracic process suspected.
[2018-05-03] MEDS ORDERED: ASPIRIN 81 MG CHEWABLE TABLET ONE (14:42)
[2018-05-03] MEDS ORDERED: FENTANYL CITR 100 MCG/2 ML ONE ×2 (14:43→17:52)
[2018-05-03] MEDS ORDERED: ONDANSETRON 4 MG/2 ML VIAL ONE (14:46)
--- NOTE | 2018-05-03 15:06 | RAD REPORT ---
EXAM DESCRIPTION: CT - Angio Aorta For Dissection - 05/03/2018 2:56 pm CLINICAL HISTORY: Chest pain radiating to the back. CHEST PAIN COMPARISON: CTANGIO AORTA FOR DISSECTION dated 03/01/2011 TECHNIQUE: CT angiography of the aorta was performed with MIPs. All CT scans are performed using dose optimization technique as appropriate and may include automated exposure control or mA/KV adjustment according to patient size. FINDINGS: A left aortic arch is present with normal branching pattern of the great vessels.A stent i s present in the proximal left subclavian artery.No acute aortic finding is seen such as aneurysm, pe netrating ulcer or dissection. The celiac axis, SMA, YANELI and renal arteries are widely patent. No evidence of pulmonary embolism. The lungs are mildly emphysematous linear scarring in the right lung base. The liver demonstrates no focal mass or biliary dilatation.Mild fatty liver is seen. Cholecystectomy clips noted.The spleen, pancreas, adrenal glands and kidneys are within normal limits for arterial ph ase imaging.Benign right renal cyst is present. No bowel obstruction, free fluid or abscess.No pathologic enlarged lymphadenopathy identified. No fracture or worrisome bone lesion seen. IMPRESSION: No acute aortic finding is demonstrated. Mild fatty liver. Mild COPD.
--- NOTE | 2018-05-03 16:00 | ER ---
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 Transition of care: patient was not received from another setting of care. Onset of symptoms was May 03, 2018. Risk Assessment: Do you want to hurt yourself or someone else? Patient reports no desire to harm self or others. Initial Sepsis Screen: Does the patient meet any 2 criteria? Yes Does the patient have a suspected source of infection? No. Patient's initial sepsis screen is negative. Care prior to arrival: None. 13:31 Method Of Arrival: Ambulatory 13:31 Acuity: TONE 3 hj Triage Assessment: 13:35 General: Appears in no apparent distress. uncomfortable, Behavior is calm, cooperative, hj appropriate for age. Pain: Complains of pain in chest Pain radiates to left arm Pain currently is 9 out of 10 on a pain scale. Cardiovascular: Capillary refill < 3 seconds Patient's skin is warm and dry. Historical: - Allergies: 13:34 No Known Allergies; hj - Home Meds: 13:34 clopidogrel 75 mg Oral tab 1 tab once daily [Active]; doxazosin 8 mg Oral tab 1 tab hj once daily [Active]; fenofibrate 200 mg Oral once daily [Active]; gabapentin 800 mg Oral tab 1 tab twice a day [Active]; glipizide 10 mg Oral tab 2 tabs 2 times per day [Active]; levothyroxine 25 mcg tab 1 tab once daily [Active]; metformin 1,000 mg Oral tab 1 tab 2 times per day [Active]; omeprazole 20 mg Oral cpDR 1 cap once daily [Active]; Protonix 40 mg Oral TbEC 1 tab once daily [Active]; simvastatin 80 mg Oral tab daily [Active]; tamsulosin 0.4 mg Oral cp24 1 cap once daily [Active]; tizanidine 4 mg Oral cap 1 cap 3 times per day [Active]; tramadol 50 mg Oral tab 1 tab three times a day [Active]; venlafaxine 75 mg Oral tab 1 tab 2 times per day [Active]; - PMHx: 13:34 Back pain; Depression; Diabetes - NIDDM; GERD; High Cholesterol; Hyperlipidemia; hj Hypertension; Hypothyroidism; Myocardial infarction; - PSHx: 13:34 pacemaker; back surg; hj - Immunization history:: Adult Immunizations up to date. - Social history:: Smoking status: Patient/guardian denies using tobacco, Patient/guardian denies using alcohol. - Ebola Screening: : Patient negative for fever greater than or equal to 101.5 degrees Fahrenheit, and additional compatible Ebola Virus Disease symptoms Patient denies exposure to infectious person Patient denies travel to an Ebola-affected area in the 21 days before illness onset. Screenin:35 Abuse screen: Denies threats or abuse. Denies injuries from another. Nutritional hj screening: No deficits noted. Tuberculosis screening: No symptoms or risk factors identified. Fall Risk None identified. Assessment: 13:35 Pain: Pain began 1 day ago. hj 14:01 General: Appears in no apparent distress. uncomfortable, Behavior is cooperative, bp appropriate for age, anxious, PT STATES LEG PAIN/NUMBNESS FOR ONE YEAR AND LEFT ARM NUMBNESS FOR 6 MONTHS. Pain: Complains of pain in left arm and chest Pain radiates to left arm Pain currently is 9 out of 10 on a pain scale. Neuro: Level of Consciousness is awake, alert, obeys commands, Oriented to person, place, time, situation, Appropriate for age. Cardiovascular: Rhythm is sinus rhythm. Respiratory: Airway is patent Respiratory effort is even, unlabored, Respiratory pattern is regular, symmetrical. GI: No signs and/or symptoms were reported involving the gastrointestinal system. : No signs and/or symptoms were reported regarding the genitourinary system. EENT: No deficits noted. Derm: No deficits noted. Musculoskeletal: Circulation, motion, and sensation intact. Range of motion: intact in all extremities. 14:30 Reassessment: CT AORTA PENDING, VS STABLE ON MONITOR. bp 16:38 Reassessment: ADMIT PENDING, VS STABLE ON MONITOR. bp Vital Signs: 13:36 BP 100 / 74; Pulse 85; Resp 18; Temp 98.1(O); Pulse Ox 100% on R/A; Weight 86.18 kg; hj Height 5 ft. 7 in. (170.18 cm); Pain 9/10; 14:07 BP 110 / 79; Pulse 88; Resp 16; Pulse Ox 100% ; bp 14:30 BP 98 / 86; Pulse 76; Resp 13; Pulse Ox 100% ; bp 16:39 BP 118 / 81; Pulse 70; Resp 14; Pulse Ox 99% ; bp 17:39 BP 130 / 79; Pulse 74; Resp 19; Pulse Ox 100% ; bp 13:36 Body Mass Index 29.76 (86.18 kg, 170.18 cm) hj ED Course: 13:27 Patient arrived in ED. mr 13:27 out of town, doctor is Private Physician. mr 13:33 Triage completed. hj 13:35 Patient has correct armband on for positive identification. Placed in gown. Bed in low hj position. Call light in reach. Side rails up X 1. Adult w/ patient. campus monitor on. Pulse ox on. NIBP on. 13:35 Patient maintains SpO2 saturation greater than 95% on room air. hj 13:36 Arm band placed on. hj 13:45 Khai Hernandez, SHEBA is Primary Nurse. bp 13:46 Mustapha Joe PA is PHCP. cp 13:46 Angel Merlos MD is Attending Physician. cp 14:00 Inserted saline lock: 20 gauge in right forearm, using aseptic technique. Blood bp collected. 14:13 CT Head C Spine In Process Unspecified. EDMS 14:17 X-ray completed. Portable x-ray completed in exam room. Patient tolerated procedure mh1 well. 14:21 XRAY Chest (1 view) In Process Unspecified. EDMS 14:53 CT completed. Patient tolerated procedure well. Patient moved back from CT. nj 14:57 CT Aorta for Dissection In Process Unspecified. EDMS 15:59 Susan So MD is Hospitalizing Provider. cp 18:09 No provider procedures requiring assistance completed. Patient admitted, IV remains in bp place. Administered Medications: 14:30 Drug: Aspirin Chewable Tablet 324 mg Route: PO; bp 15:25 Follow up: Response: No adverse reaction bp 14:30 Drug: fentaNYL (PF) 25 mcg Route: IVP; Site: right forearm; bp 15:25 Follow up: Response: Pain is decreased bp 14:30 Drug: Zofran 4 mg Route: IVP; Site: right forearm; bp 15:26 Follow up: Response: Nausea is decreased bp 15:30 Drug: NS 0.9% 500 ml Route: IV; Rate: bolus; Site: right forearm; bp 17:36 Follow up: IV Status: Completed infusion; IV Intake: 500ml bp 15:30 Drug: NS 0.9% 1000 ml Route: IV; Rate: 75 ml/hr; Site: right forearm; bp 18:01 Follow up: IV Status: Infusion continued upon admission bp 17:30 Drug: fentaNYL (PF) 25 mcg Route: IVP; Site: right forearm; bp 18:02 Follow up: Response: No adverse reaction; Pain is decreased bp Intake: 17:36 IV: 500ml; Total: 500ml. bp Outcome: 15:59 Decision to Hospitalize by Provider. cp 18:09 Admitted to Tele accompanied by tech, family with patient, via wheelchair, room 209, bp Report called to PEDRO 18:09 Condition: stable 18:09 Instructed on the need for admit. 18:18 Patient left the ED. 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 7 in.; BMI: 29.7; Pain 9/10; hj
--- NOTE | 2018-05-03 16:00 | EDPHYS ---
Physician Documentation [facility] Name: Ernie Rooney Age: 57 yrs Sex: Male : 1960 Arrival Date: 05/03/2018 Time: 13:27 Bed 6 Private MD: out of town, doctor ED Physician Angel Merlos HPI: 05/03 13:55 This 57 yrs old Male presents to ER via Ambulatory with complaints of Chest cp Pain, Arm Pain, Numbness of legs. 13:55 The patient or guardian reports chest pain that is located primarily in the anterior cp chest wall, left. 13:55 Onset: today. The pain radiates to the left arm. Associated signs and symptoms: cp Pertinent positives: increasing left arm and left leg numbness for months, Pertinent negatives: diaphoresis, lower extremity pain, lower extremity swelling, shortness of breath, syncope. The chest pain is described as aching. Duration: The patient or guardian reports a single episode, that is still ongoing. Historical: - Allergies: 13:34 No Known Allergies; hj - Home Meds: 13:34 clopidogrel 75 mg Oral tab 1 tab once daily [Active]; doxazosin 8 mg Oral tab 1 tab hj once daily [Active]; fenofibrate 200 mg Oral once daily [Active]; gabapentin 800 mg Oral tab 1 tab twice a day [Active]; glipizide 10 mg Oral tab 2 tabs 2 times per day [Active]; levothyroxine 25 mcg tab 1 tab once daily [Active]; metformin 1,000 mg Oral tab 1 tab 2 times per day [Active]; omeprazole 20 mg Oral cpDR 1 cap once daily [Active]; Protonix 40 mg Oral TbEC 1 tab once daily [Active]; simvastatin 80 mg Oral tab daily [Active]; tamsulosin 0.4 mg Oral cp24 1 cap once daily [Active]; tizanidine 4 mg Oral cap 1 cap 3 times per day [Active]; tramadol 50 mg Oral tab 1 tab three times a day [Active]; venlafaxine 75 mg Oral tab 1 tab 2 times per day [Active]; - PMHx: 13:34 Back pain; Depression; Diabetes - NIDDM; GERD; High Cholesterol; Hyperlipidemia; hj Hypertension; Hypothyroidism; Myocardial infarction; - PSHx: 13:34 pacemaker; back surg; hj - Immunization history:: Adult Immunizations up to date. - Social history:: Smoking status: Patient/guardian denies using tobacco, Patient/guardian denies using alcohol. - Ebola Screening: : Patient negative for fever greater than or equal to 101.5 degrees Fahrenheit, and additional compatible Ebola Virus Disease symptoms Patient denies exposure to infectious person Patient denies travel to an Ebola-affected area in the 21 days before illness onset. ROS: 14:00 Constitutional: Negative for body aches, chills, fever, poor PO intake. cp 14:00 Eyes: Negative for injury, pain, redness, and discharge. cp 14:00 ENT: Negative for drainage from ear(s), ear pain, sore throat, difficulty swallowing, difficulty handling secretions. 14:00 Cardiovascular: Positive for chest pain, Negative for edema, palpitations. 14:00 Respiratory: Negative for cough, shortness of breath, wheezing. 14:00 Abdomen/GI: Negative for abdominal pain, nausea, vomiting, and diarrhea, constipation, black/tarry stool, rectal bleeding. 14:00 Skin: Negative for cellulitis, rash. 14:00 Neuro: Positive for numbness, of the left arm and left leg, Negative for headache, syncope, weakness. 14:00 All other systems are negative. Exam: 13:47 ECG was reviewed by the Attending Physician. cp 14:10 Constitutional: The patient appears in no acute distress, alert, awake, cp non-diaphoretic, non-toxic, well developed, well nourished. 14:10 Head/Face: Normocephalic, atraumatic. cp 14:10 Eyes: Periorbital structures: appear normal, Pupils: equal, round, and reactive to light and accomodation, Extraocular movements: intact throughout, Conjunctiva: normal, no exudate, no injection, Sclera: no appreciated abnormality, Lids and lashes: appear normal, bilaterally. 14:10 ENT: External ear(s): are unremarkable, Ear canal(s): are normal, clear, TM's: bulging, is not appreciated, bilaterally, dullness, bilaterally, erythema, is not appreciated, bilaterally, Nose: is normal, Mouth: Lips: moist, Posterior pharynx: is normal, airway is patent, no erythema, no exudate, Voice: is normal. 14:10 Neck: ROM/movement: is normal, is supple, without pain, no range of motions limitations, no meningismus, no nuchal rigidity. 14:10 Chest/axilla: Inspection: normal, Palpation: is normal, no crepitus, no tenderness. 14:10 Cardiovascular: Rate: normal, Rhythm: regular, Edema: is not appreciated, JVD: is not appreciated. 14:10 Respiratory: the patient does not display signs of respiratory distress, Respirations: normal, no use of accessory muscles, no retractions, no splinting, no tachypnea, labored breathing, is not present, Breath sounds: are clear throughout, no decreased breath sounds, no stridor, no wheezing. 14:10 Abdomen/GI: Inspection: abdomen appears normal, Bowel sounds: active, all quadrants, Palpation: abdomen is soft and non-tender, in all quadrants, rebound tenderness, is not appreciated, voluntary guarding, is not appreciated, involuntary guarding, is not appreciated. 14:10 Back: pain, is absent, ROM is normal. 14:10 Musculoskeletal/extremity: ROM: intact in all extremities, the left arm and left leg decreased sensation. 14:10 Skin: cellulitis, is not appreciated, no rash present. 14:10 Neuro: Orientation: to person, place \T\ time. Mentation: is normal, Cerebellar function: is grossly normal, Motor: moves all fours, strength is normal. Vital Signs: 13:36 BP 100 / 74; Pulse 85; Resp 18; Temp 98.1(O); Pulse Ox 100% on R/A; Weight 86.18 kg; hj Height 5 ft. 7 in. (170.18 cm); Pain 9/10; 14:07 BP 110 / 79; Pulse 88; Resp 16; Pulse Ox 100% ; bp 14:30 BP 98 / 86; Pulse 76; Resp 13; Pulse Ox 100% ; bp 16:39 BP 118 / 81; Pulse 70; Resp 14; Pulse Ox 99% ; bp 17:39 BP 130 / 79; Pulse 74; Resp 19; Pulse Ox 100% ; bp 13:36 Body Mass Index 29.76 (86.18 kg, 170.18 cm) MDM: 13:46 Patient medically screened. cp 14:00 Differential diagnosis: abnormal EKG, acute myocardial infarction, acute pericarditis, cp pleurisy, pneumonia, pneumothorax, stable angina, unstable angina. 15:45 Physician consultation: Susan So MD was called at 15:45, was contacted at 15:45, cp regarding admission, to the telemetry unit. 15:55 The patient was given aspirin in the Emergency Department. cp 15:55 Data reviewed: vital signs, nurses notes, lab test result(s), EKG, radiologic studies, cp CT scan, plain films. Test interpretation: by ED physician or midlevel provider: ECG, plain radiologic studies. Counseling: I had a detailed discussion with the patient and/or guardian regarding: the historical points, exam findings, and any diagnostic results supporting the discharge/admit diagnosis, lab results, radiology results. 05/03 13:47 Order name: Basic Metabolic Panel; Complete Time: 14:31 bp 05/03 14:31 Interpretation: Normal except: GLUC 269. 05/03 13:47 Order name: CBC with Diff; Complete Time: 14:24 bp 05/03 13:47 Order name: LFT's; Complete Time: 14:31 bp 05/03 14:31 Interpretation: Normal except: AST 13; ALK 120. 05/03 13:47 Order name: Magnesium; Complete Time: 14:31 bp 05/03 13:47 Order name: NT PRO-BNP; Complete Time: 14:31 bp 05/03 15:48 Interpretation: Abnormal: NT PRO-BNP 230. 05/03 13:47 Order name: PT-INR; Complete Time: 14:24 bp 05/03 13:47 Order name: Troponin (emerg Dept Use Only); Complete Time: 14:31 bp 05/03 14:31 Interpretation: TROPED < 0.02; Reviewed. 05/03 13:47 Order name: XRAY Chest (1 view); Complete Time: 15:12 bp 13 13:54 Order name: CT Head C Spine; Complete Time: 14:24 cp 05/03 14:25 Interpretation: Reviewed report. 05/03 14:32 Order name: CT Aorta for Dissection; Complete Time: 15:12 cp 05/03 13:47 Order name: EKG; Complete Time: 13:48 bp 05/03 13:47 Order name: Cardiac monitoring; Complete Time: 14:04 bp 05/03 13:47 Order name: EKG - Nurse/Tech; Complete Time: 14:04 bp 05/03 13:47 Order name: IV Saline Lock; Complete Time: 14:04 bp 05/03 13:47 Order name: Labs collected and sent; Complete Time: 14:04 bp 05/03 13:47 Order name: O2 Per Protocol; Complete Time: 14:04 bp 05/03 13:47 Order name: O2 Sat Monitoring; Complete Time: 14:04 bp 05/03 13:58 Order name: Accucheck Blood Glucose; Complete Time: 14:04 cp EC:47 Rate is 85 beats/min. Rhythm is regular. IN interval is prolonged at 282 msec. QRS cp interval is normal. QT interval is normal. Interpreted by me. Reviewed by me. Administered Medications: 14:30 Drug: Aspirin Chewable Tablet 324 mg Route: PO; bp 15:25 Follow up: Response: No adverse reaction bp 14:30 Drug: fentaNYL (PF) 25 mcg Route: IVP; Site: right forearm; bp 15:25 Follow up: Response: Pain is decreased bp 14:30 Drug: Zofran 4 mg Route: IVP; Site: right forearm; bp 15:26 Follow up: Response: Nausea is decreased bp 15:30 Drug: NS 0.9% 500 ml Route: IV; Rate: bolus; Site: right forearm; bp 17:36 Follow up: IV Status: Completed infusion; IV Intake: 500ml bp 15:30 Drug: NS 0.9% 1000 ml Route: IV; Rate: 75 ml/hr; Site: right forearm; bp 18:01 Follow up: IV Status: Infusion continued upon admission bp 17:30 Drug: fentaNYL (PF) 25 mcg Route: IVP; Site: right forearm; bp 18:02 Follow up: Response: No adverse reaction; Pain is decreased bp Disposition: 05/03/18 15:59 Hospitalization ordered by Susan So for Observation. Preliminary diagnosis are Chest pain, unspecified, Paresthesia of skin - Left arm and left leg. - Bed requested for Telemetry/MedSurg (observation). - Status is Observation. bp - Condition is Stable. - Problem is new. - Symptoms have improved. UTI on Admission? No Addendum: 05/10/2018 07:51 Co-signature as Attending Physician, Angel Merlos MD I agree with the assessment and k dr plan of care. Signatures: Dispatcher [employer] EDKatlin Fuentes Kevin, MD MD kdr Ernie Venegas, RN RN hj Mustapha Joe PA PA cp Khai Hernandez, RN RN bp Corrections: (The following items were deleted from the chart) 05/03 16:00 15:59 Hospitalization Ordered by Susan So MD for Observation. Preliminary diagnosis cp is Chest pain, unspecified. Bed requested for Telemetry/MedSurg (observation). Status is Observation. Condition is Stable. Problem is new. Symptoms have improved. UTI on Admission? No. cp 17:03 16:00 05/03/2018 15:59 Hospitalization Ordered by Susan So MD for Observation. bd Preliminary diagnosis is Chest pain, unspecified; Paresthesia of skin - Left arm and left leg. Bed requested for Telemetry/MedSurg (observation). Status is Observation. Condition is Stable. Problem is new. Symptoms have improved. UTI on Admission? No. cp 18:18 17:03 05/03/2018 15:59 Hospitalization Ordered by Susan So MD for Observation. bp Preliminary diagnosis is Chest pain, unspecified; Paresthesia of skin - Left arm and left leg. Bed requested for Telemetry/MedSurg (observation). Status is Observation. Condition is Stable. Problem is new. Symptoms have improved. UTI on Admission? No. bd
[2018-05-03] MEDS ORDERED: NA CHLORIDE 0.9% 1,000 ML ONE (16:11)
[2018-05-03] MEDS ORDERED: NA CHLORIDE 0.9% 500 ML ONE (16:11)
[2018-05-03 19:05] VITALS: BMI 29.0
[2018-05-03] MEDS ORDERED: D50W 25 GM/50 ML SYRINGE IV PRN (19:13)
[2018-05-03] MEDS ORDERED: GLUCAGON 1 MG/VIAL IM PRN (19:13)
[2018-05-03] MEDS ORDERED: NITROGLYCERIN 0.4 MG/TAB SL PRN (19:13)
[2018-05-03] MEDS ORDERED: ACETAMINOPHEN 500 MG TAB PO PRN (19:13)
--- NOTE | 2018-05-03 20:10 | P.HP ---
Certification for Inpatient Patient admitted to: Observation With expected LOS: <2 Midnights Practitioner: I am a practitioner with admitting privileges, knowledge of patient current condition, hospital course, and medical plan of care. 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 He was also complaining of chest pain, substernal area, lasting less than 1 minute, associated with nausea and diaphoresis. He denied SOB. Initial trop I negative, EKG shows nonspecific ST-T abnormalitis, 1st degree AV block. At my encounter he was chest pain free. However, he was still complaining of left side tingling and weakness. about 6 month ago, he came to the hospital with similar neurologic symptoms, at that time, he had a brain MRI/MRA which was negative for acute stroke. Dr Corley evaluate the patient as well and arranged follow up in his office. Current CT head/cervical spine showed no acute abnormalities. CT dissection was negative as well. Allergies No Known Allergies Allergy (Verified 10/19/12 16:51) Home medications list reviewed: Yes Home Medications: Clopidogrel Bisulfate [Clopidogrel] 75 mg PO DAILY 03/29/13 Metformin HCl [Glucophage*] 1,000 mg PO BIDWM 03/29/13 Tramadol HCl 50 mg PO TID 03/29/13 Venlafaxine HCl [Effexor*] 75 mg PO BID 03/29/13 Gabapentin [Neurontin] 800 mg PO BID 11/08/17 Pantoprazole [Protonix Tab*] 40 mg PO DAILY 11/08/17 Tamsulosin [Flomax*] 0.4 mg PO DAILY 11/08/17 Aspirin [Aspirin EC 81 MG] 81 mg PO DAILY #90 tablet. 11/13/17 Fenofibrate [Tricor*] 48 mg PO BEDTIME #30 tab 11/13/17 Insulin Detemir [Levemir*] 21 units SQ BID #1 ml 11/13/17 Levothyroxine [Synthroid*] 0.05 mg PO VBFOT1OH #30 tablet 11/13/17 Pantoprazole [Protonix Tab*] 40 mg PO DAILYAC #30 tab 11/13/17 Simvastatin 80 mg PO BEDTIME #30 tablet 11/13/17 - Past Medical/Surgical History Diabetic: Yes -: CO -: GERD -: Hypertension -: Anxiety; depression -: DM insulin dependent -: Hypothyroidism -: enlarged prostate -: cataract in the left eye -: fibromyalgia -: hyperlipidemia -: neuropathy -: pacemaker placement May 2017 -: triple bypass 2002 4 stents -: back surgeries x 6 -: arthroscopic surgeries bilateral knees -: left forearm rodding -: deep -: appy -: tonsellectomy - Family History Mother -: Heart disease, Hypertension grandparents -: Diabetes, Stroke - Social History Smoking Status: Former smoker Alcohol use: No CD- Drugs: No Caffeine use: Yes Place of Residence: Home Review of Systems 10-point ROS is otherwise unremarkable Physical Examination - Vital Signs Temperature: 97.3 F Blood Pressure: 113/71 Pulse: 74 Respirations: 16 Pulse Ox (%): 99 - Physical Exam General: Alert, In no apparent distress HEENT: Atraumatic, PERRLA, Mucous membr. moist/pink, EOMI, Sclerae nonicteric Neck: Supple, 2+ carotid pulse no bruit, No LAD, Without JVD or thyroid abnormality Respiratory: Clear to auscultation bilaterally, Normal air movement Cardiovascular: Regular rate/rhythm, Normal S1 S2 Gastrointestinal: Normal bowel sounds, No tenderness Musculoskeletal: No tenderness Integumentary: No rashes Neurological: Normal speech, Normal tone, Normal affect, Abnormal strength ( left lower extremity 3/5 rest of the extremities 5/5) Lymphatics: No axilla or inguinal lymphadenopathy - Studies Laboratory Data (last 24 hrs) 05/03/18 13:55: PT 12.6 H, INR 1.07 05/03/18 13:55: WBC 6.8, Hgb 14.6, Hct 42.1, Plt Count 276 05/03/18 13:55: Sodium 136, Potassium 3.8, BUN 8, Creatinine 0.80, Glucose 269 H , Magnesium 2.0, Total Bilirubin 0.7, AST 13 L, ALT 27, Alkaline Phosphatase 120 H Assessment and Plan - Problems (Diagnosis) (1) Chest pain Current Visit: Yes Status: Acute Qualifiers: Chest pain type: unspecified Qualified Code(s): R07.9 - Chest pain, unspecified (2) History of CVA with residual deficit Current Visit: No Status: Acute (3) Left-sided weakness Onset Date: 11/08/17 Current Visit: No Status: Acute (4) CAD (coronary artery disease) Onset Date: 11/08/17 Current Visit: No Status: Chronic Qualifiers: Coronary Disease-Associated Artery/Lesion type: unspecified vessel or lesion type (5) Diabetes mellitus Onset Date: 11/08/17 Current Visit: No Status: Chronic Qualifiers: Diabetes mellitus type: type 2 Diabetes mellitus chcf insulin 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 Initial troponin I is negative, EKG no changes compared with previous one. Will resume ASA, Plavix, statins, beta ulises, order serial cardiac enzymes and EKG. ECHO ordered. Consult cardiology team. Consult PT to evaluate safety ambulation. Will monitor progression of neurologic deficit - Advance Directives Does patient have a Living Will: No Does patient have a Durable POA for Healthcare: No - Code Status/Comfort Care Code Status Assessed: Yes Code Status: Full Code
[2018-05-03] MEDS: METOPROLOL TAR 25 MG TAB PO SCH (21:07)
[2018-05-03] MEDS: ATORVASTATIN 80 MG TAB PO SCH (21:08)
[2018-05-03] MEDS: INSULIN -REGULAR HUMAN 50 UNIT/0.5 ML ML SQ SCH (21:08)
[2018-05-03] MEDS: MORPHINE 4 MG/ML SYR IV PRN (21:08)
[2018-05-03] MEDS ORDERED: ONDANSETRON 4 MG/2 ML VIAL IV PRN (22:20)
[2018-05-04] MEDS: MORPHINE 4 MG/ML SYR IV PRN ×5 (01:43→21:42)
[2018-05-04 05:09] LABS: Absolute Lymphocytes (CBC) 2.8 K/uL (0.7-4.9); Absolute Monocytes 0.5 K/uL (0.1-1.3); Absolute Neutrophil 2.9 K/uL (1.8-8.0); Basophils % 0.4 % (0-1.3); Eosinophils % 4.3 % (0-4.4); Hematocrit 38.5 % (39.6-49.0); Lymphocytes % 43.5 % (15.3-44.8); MCH 30.7 pg (27.0-35.0); MPV 9.4 fL (7.6-11.3); Monocytes % 7.2 % (3.3-12.3); RBC Red Blood Cell Count 4.32 M/uL (4.33-5.43)
[2018-05-04] MEDS: METOPROLOL TAR 25 MG TAB PO SCH ×2 (05:16→17:42)
[2018-05-04 05:30] LABS: BUN Blood Urea Nitrogen 10 mg/dL (7-18); Bicarbonate 26 mmol/L (21-32); Glucose Level 314 mg/dL (74-106); HDL Cholesterol 31 mg/dL (40-60); LDL Cholesterol, Calculated 116 (<130); Sodium Level 138 mmol/L (136-145)
[2018-05-04] MEDS: INSULIN -REGULAR HUMAN 50 UNIT/0.5 ML ML SQ SCH ×4 (07:30→21:29)
[2018-05-04] MEDS: ASPIRIN EC 81 MG TAB PO SCH (08:50)
[2018-05-04] MEDS: ENOXAPARIN 40 MG/0.4 ML SQ SCH (08:50)
--- NOTE | 2018-05-04 09:26 | EKG ---
Test Date: 2018-05-03 Test Time: 13:40:03 Customer Contact Sales Associate: KIN MEASUREMENT RESULTS: Intervals: Rate: 85 VA: 282 QRSD: 88 QT: 356 QTc: 423 [place]: P: 63 VA: 282 QRS: -9 T: 84 INTERPRETIVE STATEMENTS: Sinus rhythm with 1st degree AV block Inferior infarct, age undetermined Possible Anterolateral infarct, age undetermined Abnormal ECG Compared to ECG 11/07/2017 21:48:24 No significant changes Electronically Signed On 05-04-18 09:25:36 WATER PURIFIER by Igor Gordillo
[2018-05-04] MEDS ORDERED: REGADENOSON 0.4 MG/5 ML SYR IV ONE (09:58)
--- NOTE | 2018-05-04 12:45 | TREADPHA ---
DX: CHEST PAIN Date of Study: 05/04/18 Ht: 5 7 Wt: 185 lb 0 oz Consulting Physician: MAXIMINO MEDICATIONS: TYLENOL, ASPIRIN, LIPITOR, DEXTROSE, LOVENOX, SUBLIMAZE, GLUCAGEN, NOVOLIN, LOPRESSOR, NITROSTAT, ZOFRAN HISTORY: PHYSICIAL EXAMINATION: RESTING B.P.: 114/70 RESTING H.R.: 68 RESTING EKG: SINUS, ANTERIOR MYOCARDIAL INFARCTION, INFERIOR MYOCARDIAL INFARCTION. LOW VOLTAGE PROTOCOL: LEXISCAN EXERCISE TIME: 3:30 B.P. AT PEAK STRESS: 103/70 IMPRESSION: LEXISCAN INJECTED, CARDIOLITE INJECTED PER PROTOCOL. SEE NUCLEAR MEDICINE REPORT. NO SUPRA VENTRICULAR TACHYCARDIA, NO VENTRICULAR TACHYCARDIA. ONE PREMATURE ATRIAL COMPLEX. PACER TO LEFT CHEST WALL. NITRO SUB @ 12:14. NITOR SUB @ 112:19. NON DIAGNOSTIC EKG WITH LEXISCAN STRESS.
--- NOTE | 2018-05-04 12:48 | ECHO ---
HEIGHT: 5 ft 7 in WEIGHT: 185 lb 0 oz DATE OF STUDY: REFER DR: Susan So MD 2-DIMENSIONAL: YES M.MODE: YES DOPPLER: YES COLOR FLOW: YES TDS: NO PORTABLE: NO DEFINITY: NO BUBBLE STUDY: NO DIAGNOSIS: CHEST PAIN CARDIAC HISTORY: CATHERIZATION: YES SURGERY: NO PROSTHETIC VALVE: YES PACEMAKER: YES MEASUREMENTS (cm) DIASTOLIC (NORMALS) SYSTOLIC (NORMALS) IVSd 1.2 (0.6-1.2) LA Diam 4.8 (1.9-4.0) LVEF 54% LVIDd 4.4 (3.5-5.7) LVIDs 3.2 (2.0-3.5) %FS 28% LVPWd 1.2 (0.6-1.2) Ao Diam 2.7 (2.0-3.7) 2 DIMENSIONAL ASSESSMENT: RIGHT ATRIUM: NORMAL LEFT ATRIUM: DILATED RIGHT VENTRICLE: PACEMAKER CATHETER LEFT VENTRICLE: NORMAL TRICUSPID VALVE: NORMAL MITRAL VALVE: NORMAL PULMONIC VALVE: NORMAL AORTIC VALVE: NORMAL PERICARDIAL EFFUSION: NONE AORTIC ROOT: NORMAL LEFT VENTRICULAR WALL MOTION: PARADOXICAL SEPTAL MOTION. DOPPLER/COLOR FLOW: NORMAL. COMMENTS: NORMAL LEFT VENTRICULAR EJECTION FRACTION WITH PARADOXICAL SEPTAL MOTION. DILATED LEFT ATRIUM. PACEMAKER IN RIGHT VENTRICLE. TECHNOLOGIST: DINORA FONSECA
--- NOTE | 2018-05-04 13:04 | RAD REPORT ---
EXAM DESCRIPTION: NM - Rest Stress Cardiac Imaging - 05/04/2018 12:54 pm CLINICAL HISTORY: Chest pain COMPARISON: October 2012 TECHNIQUE: The patient was administered approximately 10 mCi of Tc 99m Sestamibi prior to resting SP ECT imaging of the heart. The patient was then administered approximately 30 mCi of Tc 99m Sestamibi following exercise or pharmacologic stress. Multiplanar SPECT images were reviewed. FINDINGS: The end diastolic volume is 96 ml, the end systolic volume is 46 ml, and the ejection frac tion is 52 %. Ejection fraction is similar to the comparison. End-diastolic volume has improved since 2013. No stress-induced ischemic changes are identifiable. Decreased activity is seen along the inferior an d inferoseptal wall mid in apex portion. Finding does not change between rest and stress imaging. Thi s could be scarring or attenuation artifact. Minimal diminished activity anterior wall near the septu m is not clearly different between rest and stress imaging. IMPRESSION: No stress-induced ischemic changes identifiable. Attenuation artifact or scarring along the inferior and inferolateral wall mid and apex portion. Sonia stacy is similar to 2013. End-diastolic volume was 96 milliliters, improved from 2013. Ejection fraction is normal at 52%, ambrosio lar to 2013.
--- NOTE | 2018-05-04 13:36 | CON ---
Chief Complaint: Chest pain, although now it is leg pain and back pain. History Of Present Illness: Mr. Rooney had his chest pain yesterday. Since he has been here in [facility], [place] was ruled out. Enzymes are normal. Mr. Rooney had bypass surgery remotely someti me before 2011. In 2011, we saw him and did a cardiac cath, and were very surprised to see that his coronary arteries were virtually normal. All of the bypass grafts have occluded at their origins. T he remainder of the bypass graft that connected an obtuse marginal with an LAD was still connecting t he 2 and there was competitive flow in there, but basically we could not really see the initial indic ation for the bypass, so perhaps the patient had coronary spasm mistaken for atherosclerosis. He argueta s not have angina pectoris as a rule. His pain yesterday was between the shoulder blades in the back , resolved after several hours. He has underlying diabetes. He is a former tobacco user, quit about 7 or 8 years ago. He was a former heavy alcohol user, recreational drug user, all of those have bee n stopped. He sees a pain doctor, Dr. Gaffney in the [place] area. Medications: He takes clopidogrel, metformin, tamsulosin, gabapentin, levothyroxine, Protonix, simva statin, doxazosin, fenofibrate, glipizide, metoprolol, lisinopril, NPH insulin and regular insulin. Physical Examination: Vital Signs: 5 feet 7 inches, 185 pounds, centripetal obesity. HEENT: Unremarkable. Carotids, no bruit. Lungs: Clear. Heart: Within normal limits. Extremities: Palpable distal pulses, but diminished. Laboratory Data: A chest x-ray reveals no acute intrathoracic abnormality. It does show evidence of a dual lead pacemaker and previous sternal wires. A CT for dissection is negative. Impression: Mr. Rooney probably is having musculoskeletal pain. Again, the pain he had last nigh t and the pain he is having today is not related to the heart. It has been 6 years since anybody miles his heart, so I have recommended a pharmacologic nuclear stress test. If that is normal, we wou ld not pursue any other coronary artery workup for the time being. LA/VAMSHI Voice ID: [id number] Report ID: [id number]
--- NOTE | 2018-05-04 17:20 | RAD REPORT ---
EXAM DESCRIPTION: CTSpine Lumbar Wo Con05/04/2018 3:36 pm CLINICAL HISTORY: Lower extremity numbness and weakness COMPARISON: None TECHNIQUE: Computed axial tomography lumbar spine was obtained with coronal and sagittal reconstruct ion. All CT scans are performed using dose optimization technique as appropriate and may include automated exposure control or mA/KV adjustment according to patient size. FINDINGS: Mild spondylosis L1-2 Calcification posterior longitudinal ligament L2-3 with disc bulge and ligamentum flavum and facet hy pertrophy. Calcification of the ligamentum flavum. Thecal sac measures 8 millimeters. Mild narrowing left neural foramina Disc bulge L3-4 with ligamentum flavum and facet hypertrophy. Thecal sac is not significantly narrowe d. Moderate narrowing the neural foramina bilaterally Facet hypertrophy L4-5 with mild to moderate narrowing left and mild narrowing the right neural taya lawrence Left pedicular screw placed at L4. Left laminar screw placed at S1. The screws are united by a erika. L aminectomies involve the lower lumbar spine. Posterior fusion is present. Artifact from the hardware obscures detail at L5-S1 and L4. Facet hypertrophy L5-S1 results in mild narrowing of the neural foramina No fracture seen. No dislocation noted IMPRESSION: Postsurgical changes involving the lumbar spine. Spondylosis L3-4 resulting in moderate bilateral foraminal stenosis. Spondylosis L2-3 resulting in mild central spinal stenosis Evaluation of the spinal canal is somewhat limited secondary to a combination of the hardware and thi s being a CT scan rather than MRI
--- NOTE | 2018-05-04 19:27 | PN ---
Date of Progress Note: 05/04/2018 Subjective: The patient is seen and examined. Chart reviewed, and case discussed with RN and Dr. Rio max. The patient continues to have chest pain. Also reports some dizziness, back pain, numbness all over his left lower extremity, and weakness of the left lower extremity. Medications: List reviewed. Physical Examination: Vital Signs: Temperature 97.6, heart rate 68, blood pressure 107/68, respirations 18, O2 of 100% on room air. GENERAL: Awake, alert, oriented x3. Some mild distress. Appears older than stated age. An ill-ronald earing male. CV: S1 and S2. Regular rate and rhythm. Peripheral pulses present. No murmurs. Respiratory: Moving air well bilaterally. No wheezing or stridor. No use of accessory muscles. Gastrointestinal: Abdomen is soft, nontender, nondistended. Positive bowel sounds. No guarding or rigidity. Extremities: No clubbing, cyanosis, or edema. No calf tenderness. Neuro: Cranial nerves 2 through 12 intact grossly. The patient does have some weakness of the left lower extremity, 4/5. Decreased sensation to light touch on the left lower extremity. Skin: Multiple tattoos. Some abrasions and healing ulcer on the left leg. Laboratory Data: Sodium 138, potassium 4, chloride 106, CO2 of 26, BUN 10, creatinine 0.7, glucose 3 14, calcium 8.4. Troponin less than 0.02 x3. Triglycerides 240, cholesterol 195, LDL 116, HDL 31. WBC 6.5, H and H 13.2 and 38.5, platelets 236. Cardiac stress test negative for any stress-induced i schemia. CT dissection shows no acute aortic finding, mild fatty liver, mild COPD. Head CT and cerv ical spine CT show no acute hemorrhage, hydrocephalus, or extra-axial collection identified. No brai n edema or midline shift. CT cervical spine, no acute intracranial or cervical spine findings. Assessment: A 57-year-old male with: 1.Unstable angina. The patient has history of coronary artery disease, status post coronary artery bypass graft. Acute coronary syndrome has been ruled out. Cardiac stress test is negative. Appreci ate Dr. Gordillo' input. 2.History of cerebrovascular accident with residual deficit, however, MRI of the brain done in October was negative. May be related to lumbar radiculopathy. 3.Left-sided lower extremity weakness, may be related to lumbar radiculopathy. We will obtain MRI o f lumbar spine if the pacemaker is compatible. Neurology, Dr. Corley, has been consulted. 4.Coronary artery disease, [place] artery and [place] heart, with angina, status post coronary artery bypass graft. 5.Diabetes mellitus type 2 with long-term use of insulin with hyperglycemia, uncontrolled. We will continue Accu-Cheks and sliding scale insulin. 6.Status post pacemaker. 7.Essential hypertension, stable. 8.Mixed hyperlipidemia, elevated triglycerides, and low HDL. We will continue statin. Plan: Followup with lumbar spine MRI, neurology evaluation. /MODTianna Voice ID: [id number] Report ID: [id number]
[2018-05-04] MEDS ORDERED: DOXAZOSIN 4 MG TAB PO SCH (21:00)
[2018-05-04] MEDS: glipiZIDE 5 MG TAB PO SCH (21:26)
[2018-05-04] MEDS ORDERED: DOXAZOSIN 2 MG TAB ONE (21:26)
[2018-05-04] MEDS: ATORVASTATIN 80 MG TAB PO SCH (21:26)
[2018-05-04] MEDS: GABAPENTIN 400 MG CAP PO SCH (21:27)
[2018-05-04] MEDS: NPH (HUMAN) 100 UNITS/ML INSULIN SQ SCH (21:28)
[2018-05-05] MEDS: MORPHINE 4 MG/ML SYR IV PRN (05:40)
[2018-05-05] MEDS: METOPROLOL TAR 25 MG TAB PO SCH (05:40)
[2018-05-05] MEDS ORDERED: LEVOTHYROXINE SOD 0.05 MG TABLET PO SCH (06:00)
[2018-05-05] MEDS ORDERED: PANTOPRAZOLE 40MG TABLET PO SCH (06:30)
[2018-05-05] MEDS: ENOXAPARIN 40 MG/0.4 ML SQ SCH (08:52)
[2018-05-05] MEDS: INSULIN -REGULAR HUMAN 50 UNIT/0.5 ML ML SQ SCH (08:52)
[2018-05-05] MEDS: glipiZIDE 5 MG TAB PO SCH (08:53)
[2018-05-05] MEDS: GABAPENTIN 400 MG CAP PO SCH (08:53)
[2018-05-05] MEDS: ASPIRIN EC 81 MG TAB PO SCH (08:54)
[2018-05-05] MEDS: NPH (HUMAN) 100 UNITS/ML INSULIN SQ SCH (08:59)
[2018-05-05] MEDS ORDERED: TAMSULOSIN 0.4 MG SR CAP PO SCH (09:00)
[2018-05-05] MEDS ORDERED: LISINOPRIL 5 MG TAB PO SCH (09:00)
[2018-05-05] MEDS ORDERED: HOME MED 1 EA UNK (Fenofibrate,Micronized [Fenofibrate] 200 MG) PO SCH (09:00)
[2018-05-05] MEDS ORDERED: CLOPIDOGREL 75 MG TABLET PO SCH (09:00)
[2018-05-05 10:11] VITALS: BP 86/55; TEMP 97.1
[2018-05-05 10:20] VITALS: O2SAT 96
--- NOTE | 2018-05-06 06:53 | DS ---
Date of Discharge: 05/05/2018 Consultants: Dr. Corley with Neurology, Dr. Gordillo with Cardiology. Procedures: On 05/04/2018, cardiac stress test, no stress-induced ischemia identifiable, attenuation artifact or scarring Admitting Diagnoses: 1. Chest pain. 2. History of cerebrovascular accident with residual deficit. 3. Left-sided weakness. 4. Coronary artery disease. 5. Diabetes mellitus type 2 with long-term use of insulin with hyperglycemia. 6. Status post pacemaker. 7. Essential hypertension. Discharge Diagnoses: 1. Unstable angina, acute coronary syndrome ruled out. 2. History of cerebrovascular accident with residual deficit, MRI brain in October negative. 3. Left-sided lower extremity weakness likely lumbar radiculopathy versus visual deficit from cerebrovascular accident. 4. Coronary artery disease, [place] artery and [place] heart with angina status post coronary artery bypass graft. 5. Diabetes mellitus type 2 with long-term use of insulin with hyperglycemia, uncontrolled. 6. Status post pacemaker. 7. Essential hypertension. 8. Mixed hyperlipidemia. Hospital Course: The patient is a 57-year-old male with multiple medical conditions including hypertension, diabetes, history of CVA with left-sided weakness, coronary artery disease status post CABG, pacemaker, comes in with chest pain and recurrent left-sided weakness, which has been ongoing for several months. His chest pain was evaluated, ACS was ruled out. The patient was seen by Cardiology, Dr. Gordillo. Cardiac stress test was done, which did not show any stress-induced ischemia. Echocardiogram was also done, showed EF of 54%. The patient's chest pain resolved. CT aortic dissection was also done , which did not show any acute aortic findings, did show some mild fatty liver disease. Dr. Corley was also consulted regarding the patient's left-sided weakness. CT head and cervical spine did not show any acute changes. The patient's pacemaker is MRI compatible, however, the respiratory therapy technician was unable to come in until Monday to convert it to MRI mode, therefore, CT of the lumbar spine was done, did show postsurgical changes involving the lumbar spine, spondylosis L3-L4 resulting in moderate bilateral foraminal stenosis, spondylosis L2-L3 resulting in mild central spinal stenosis. The patient was seen by Dr. Corley with Neurology recommendations to follow up with Dr. Velasquez in Neurosurgery were made. The patient in the past has been evaluated previously for back surgery, however, continues to have uncontrolled diabetes, and therefore, was not operated on. He was counseled extensively regarding his diabetes, he should have his insulin dose adjusted. There is also an issue of noncompliance with his diet. We will recommend referral to Endocrinology as outpatient and diabetic education as well. Overall, the patient did well. His vital signs remained stable. He was then cleared for discharge from accounting consultant' s standpoint. He was sent home in a stable condition. Activity: Fall precautions, continued to use a walker for ambulation. Diet: Diabetic diet. Followup: Follow up with primary care physician in 2 to 3 days. Follow up with neurosurgeon, Dr. Velasquez, in 1 week. Follow up with neurologist, Dr. Corley, in 2 weeks. Follow up with insurance inspector, Dr. Gordillo, in 4 weeks. Return to ER for worsening condition. Medications: As per medication reconciliation list. Physical Examination: General: Awake, alert, oriented x3, in no acute distress, appears older than stated age male. CV: S1, S2. No murmurs. Peripheral pulses present. Respiratory: Moving air well bilaterally. No wheezing. Gastrointestinal: Abdomen is soft, nontender, nondistended. Positive bowel sounds. Extremities: No clubbing, cyanosis, or edema. Neuro: Left-sided lower extremity weakness 4/5. Decreased sensation to light touch. Skin: No rashes. Normal skin turgor. SA/MODL Voice ID: [id number] Report ID: [id number] MTDD
== END 2018-05-05 10:30 | disposition home or self-care (01) ==
LOC: ER 13:23 → ERHOLD 16:44 → 2ND 18:09
PROVIDERS: ADMIT Family Medicine; ATTEND Internal Medicine
DX: I25.110 Atherosclerotic heart disease of native coronary artery with unstable angina pectoris (principal); I69.354 Hemiplegia and hemiparesis following cerebral infarction affecting left non-dominant side; E11.65 Type 2 diabetes mellitus with hyperglycemia; I10 Essential (primary) hypertension; E78.2 Mixed hyperlipidemia; E66.9 Obesity, unspecified; Z68.29 Body mass index [BMI] 29.0-29.9, adult; Z95.0 Presence of cardiac pacemaker; Z79.4 Long term (current) use of insulin; Z95.1 Presence of aortocoronary bypass graft
CPT/HCPCS: 36415; 70450; 71045; 71275; 72125; 72131; 74175; 78452; 80048; 80061; 80076; 82962; 83735; 83880; 84484; 85025; 85610; 93005; 93017; 93306; 94760; 96361; 96374; 96375; 97162; 99285; A9500; G0378; J1650; J2405; J2785; J3010; J7030; Q9967

== ENCOUNTER 2018-06-28 20:05 | Emergency (ER) | payer OTHER ==
--- OUTSIDE RECORDS SUMMARY | 2018-06-28 20:08 | XMS REPORT ---
:1960 [facility] Address [address] [place] [address] Care Team Providers Name Role Phone TERA COX Unavailable Unavailable JACQUELYN MONTES DE OCA Unavailable Unavailable NICHELLE PALACIOS Unavailable Unavailable Payers Payer Name Policy Type Policy Number Effective Date Expiration Date Problems This patient has no known problems. Allergies, Adverse Reactions, Alerts Allergy Allergy Status Severity Reaction(s) Onset Inactive Treating Comments Name Type Date Date Clinician No Known DA Active U 2018-04 Allergies - 00:00:0 0 No Known DA Active U 2017-07 Allergies - 00:00:0 0 Medications This patient has no known medications. Results Test Description Test Time Test Comments Text Results Atomic Results Result Comments CTA BRAIN [facility] [address] [place] [address] Patient Name: FAITH VANCE MR #: [id number] : 1960 Age/Sex: 57/M Req #: [id number] Adm Physician: TERA COX MD Ordered by: TERA COX MD Report #: [id number] Location: [facility] Room/Bed: [place] [address] Procedure: [id number] CT/CTA BRAIN Exam Date: 10/24/17 Exam Time: [...] PM Dictated By: ANA MARIA ARTEAGA MD [id number] Transcribed By: ANDREE on 10/24/17 1631 COPY TO: TERA COX MD CT BRAIN WO [place] [address] Patient Name: FAITH VANCE MR #: [id number] : 1960 Age/Sex: 57/M Req #: [id number] Adm Physician: Ordered by: ARLETH WAHL MD Report #: [id number] Location: Room/Bed: Procedure: [id number] CT/CT BRAIN WO Exam Date: 10/23/17 Exam [...] on 10/23/2021. Signed by: Dr. Ana Maria Artegaa M.D. on 10/23/2017 4:43 PM Dictated By: ANA MARIA ARTEAGA MD [id number] Transcribed By: ANDREE on 10/23/178 COPY TO: ARLETH WAHL MD CTA CHEST [place] [address] Patient Name: FAITH VANCE MR #: [id number] : 1960 Age/Sex: 57/M Req #: [id number] Adm Physician: Ordered by: ARLETH WAHL MD Report #: [id number] Location: ER Room/Bed: Procedure: [id number] CT/CTA CHEST Exam Date: 10/23/17 Exam Time: [...] reviewed and is below limits set by [facility]). FINDINGS: Lines and Tubes: Pacemaker with leads [...] 1621 COPY TO: ARLETH WAHL MD CHEST SINGLE [address] (PORTABLE) [place] [address] Patient Name: FAITH VANCE MR #: [id number] : 1960 Age/Sex: 57/M Req #: [id number] Adm Physician: Ordered by: ARLETH WAHL MD Report #: [id number] Location: ER Room/Bed: Procedure: [id number] DX/CHEST SINGLE (PORTABLE) Exam Date: 10/23/17 Exam [...] at 14:43 Dictated By: ELIE BARFIELD MD 144 Transcribed By: ANIBAL on 10/23/17 1443 COPY TO: ARLETH WAHL MD CT BRAIN WO [place] [id number] [place] [address] Patient Name: FAITH VANCE MR #: [id number] : 1960 Age/Sex: 56/M Req #: [id number] Adm Physician: Ordered by: JACQUELYN MONTES DE OCA MD Report #: [id number] Location: ER Room/Bed: Procedure: [id number] CT/CT BRAIN WO Exam Date: Exam Time: [...] MONTES DE OCA MD CT CERVICAL SPINE [place] [address] Patient Name: FAITH VANCE MR #: [id number] : 1960 Age/Sex: 56/M Req #: [id number] Adm Physician: Ordered by: JACQUELYN MONTES DE OCA MD Report #: [id number] Location: ER Room/Bed: Procedure: [id number] CT/CT CERVICAL SPINE WO Exam Date: Exam [...] COPY TO: JACQUELYN MONTES DE OCA MD CHEST SINGLE [address] (PORTABLE) [place] [address] Patient Name: FAITH VANCE MR #: [id number] : 1960 Age/Sex: 56/M Req #: [id number] Adm Physician: Ordered by: JACQUELYN MONTES DE OCA MD Report #: [id number] Location: ER Room/Bed: Procedure: [id number] DX/CHEST SINGLE (PORTABLE) Exam Date: 04/04/17 Exam [...] 04/04/2017 2:12 AM Dictated By: MARCO A TALOBT MD 1 Transcribed By: ANDREE on 04/04/17211 COPY TO: JACQUELYN MONTES DE OCA MD HIP RIGHT 2-[address] (+/- PELVIS) [place] [address] Patient Name: FAITH VANCE MR #: [id number] : 1960 Age/Sex: 56/M Req #: [id number] Adm Physician: Ordered by: JACQUELYN MONTES DE OCA MD Report #: [id number] Location: ER Room/Bed: Procedure: [id number] DX/HIP RIGHT 2-3 VW (+/- PELVIS) Exam [...] COPY TO: JACQUELYN MONTES DE OCA MD LUMBAR, [address] COMPLETE MIN 4VW [place] [address] Patient Name: FAITH VANCE MR #: [id number] : 1960 Age/Sex: 56/M Req #: [id number] Adm Physician: Ordered by: JACQUELYN MONTES DE OCA MD Report #: [id number] Location: ER Room/Bed: Procedure: [id number] DX/SP LUMBAR, COMPLETE MIN 4VW Exam Date: [...] JACQUELYN MONTES DE OCA MD US ABDOMEN [place] [address] Patient Name: FAITH VANCE MR #: [id number] : 1960 Age/Sex: 56/M Req #: [id number] [facility] Physician: NICHELLE PALACIOS MD Ordered by: SCOTT AMIN MD Report #: [id number] Location: [facility] Room/Bed: [place] [address] Procedure: [id number] US/US ABDOMEN COMPLETE Exam Date: 03/08/17 Exam [...] 03/08/17 1040 COPY TO: SCOTT AMIN MD [place] [address] Patient Name: FAITH VANCE MR #: [id number] : 1960 Age/Sex: 56/M Req #: [id number] Adm Physician: Ordered by: JACQUELYN MONTES DE OCA MD Report #: [id number] Location: ER Room/Bed: Procedure: [id number] DX/CHEST SINGLE (PORTABLE) Exam Date: 03/05/17 Exam [...]
[2018-06-28] MEDS ORDERED: GLUCAGON 1 MG/VIAL ONE (21:00)
[2018-06-28 21:55] LABS: BUN Blood Urea Nitrogen 11 mg/dL (7-18); Bicarbonate 27 mmol/L (21-32); Potassium 3.2 mmol/L (3.5-5.1); Sodium Level 140 mmol/L (136-145)
[2018-06-28 22:00] LABS: Glucose Level 415 mg/dL (74-106)
[2018-06-28] MEDS ORDERED: INSULIN -REGULAR HUMAN 50 UNIT/0.5 ML ML ONE (22:22)
[2018-06-28] MEDS ORDERED: NA CHLORIDE 0.9% 1,000 ML ONE (22:22)
--- NOTE | 2018-06-28 23:41 | ER ---
Nurse's Notes [facility] Name: Ernie Rooney Age: 58 yrs Sex: Male : 1960 Arrival Date: 06/28/2018 Time: 20:07 Bed 13 Private MD: Diagnosis: Foreign body in esophagus-resolved;Hyperglycemia, unspecified Presentation: 06/28 20:15 Presenting complaint: EMS states: he ate a burger and got stock on his throat. rr5 continuous coughing. maintaining Oxygen saturation 100%. 20:15 Transition of care: patient was not received from another setting of care. Onset of rr5 symptoms was June 28, 2018. Risk Assessment: Do you want to hurt yourself or someone else? Patient reports no desire to harm self or others. Initial Sepsis Screen: Does the patient meet any 2 criteria? No. Patient's initial sepsis screen is negative. Does the patient have a suspected source of infection? No. Patient's initial sepsis screen is negative. Note able to speak not in distress maintaining oxygen saturation at 100%. Care prior to arrival: None. 20:15 Method Of Arrival: EMS: [facility] rr5 20:15 Acuity: TONE 3 rr5 Historical: - Home Meds: 22:01 venlafaxine 75 mg Oral tab 1 tab 2 times per day [Active]; tramadol 50 mg Oral tab 1 bb tab three times a day [Active]; omeprazole 20 mg Oral cpDR 1 cap once daily [Active]; metformin 1,000 mg Oral tab 1 tab 2 times per day [Active]; gabapentin 800 mg Oral tab 1 tab twice a day [Active]; Protonix 40 mg Oral TbEC 1 tab once daily [Active]; levothyroxine 50 mcg oral tab [Active]; glipizide 10 mg Oral tab 2 tabs 2 times per day [Active]; fenofibrate 200 mg Oral once daily [Active]; tamsulosin 0.4 mg Oral cp24 1 cap once daily [Active]; clopidogrel 75 mg Oral tab 1 tab once daily [Active]; simvastatin 80 mg Oral tab daily [Active]; tizanidine 4 mg Oral cap 1 cap 3 times per day [Active]; doxazosin 8 mg Oral tab 1 tab once daily [Active]; metoprolol tartrate 25 mg Oral tab [Active]; lisinopril 2.5 mg Oral tab [Active]; - PMHx: 22:02 Back pain; Depression; Diabetes - NIDDM; GERD; High Cholesterol; Hyperlipidemia; bb Hypertension; Hypothyroidism; Myocardial infarction; - PSHx: 22:02 pacemaker; back surg; bb - Immunization history:: Adult Immunizations up to date, Flu vaccine is up to date. - Social history:: Smoking status: Patient/guardian denies using tobacco, the patient reports quitting approximately 3 years ago, Patient/guardian denies using alcohol, the patient reports quitting approximately [address] drugs. - Ebola Screening: : Patient negative for fever greater than or equal to 101.5 degrees Fahrenheit, and additional compatible Ebola Virus Disease symptoms Patient denies exposure to infectious person Patient denies travel to an Ebola-affected area in the 21 days before illness onset. Screenin:15 Abuse screen: Denies threats or abuse. Denies injuries from another. Nutritional rr5 screening: No deficits noted. Tuberculosis screening: No symptoms or risk factors identified. Fall Risk IV access (20 points). Total Cummings Fall Scale indicates No Risk (0-24 pts). Assessment: 20:15 General: Appears in no apparent distress. uncomfortable, Behavior is calm, cooperative, rr5 appropriate for age. Pain: Complains of pain in throat Pain does not radiate. Pain currently is 5 out of 10 on a pain scale. Quality of pain is described as aching, Pain began suddenly, Is continuous. 20:15 Neuro: Level of Consciousness is awake, alert, obeys commands, Oriented to person, rr5 place, time, situation, Appropriate for age. Cardiovascular: Capillary refill < 3 seconds Patient's skin is warm and dry. Respiratory: Reports cough that is something stock in my throat Airway is patent Respiratory effort is even, Respiratory pattern is regular, symmetrical. GI: No signs and/or symptoms were reported involving the gastrointestinal system. : No signs and/or symptoms were reported regarding the genitourinary system. EENT: Throat Reports something stock in my throat. Derm: Skin is intact, Skin temperature is warm. Musculoskeletal: Capillary refill < 3 seconds, Range of motion: intact in all extremities. 21:30 Reassessment: Patient appears in no apparent distress at this time. Patient is alert, rr5 oriented x 3, equal unlabored respirations, skin warm/dry/pink. maintaining oxygen saturation of 99-100%, less coughing observed Patient states symptoms have improved. 22:30 Reassessment: Patient appears in no apparent distress at this time. Patient is alert, rr5 oriented x 3, equal unlabored respirations, skin warm/dry/pink. 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 Patient states symptoms have improved. 23:30 Reassessment: Patient appears in no apparent distress at this time. Patient is alert, rr5 oriented x 3, equal unlabored respirations, skin warm/dry/pink. no complaints made. CBG 211 Mg/dl. ED provider informed. Patient denies pain at this time. Patient states feeling better. Patient states symptoms have improved. 23:50 Reassessment: Patient appears in no apparent distress at this time. Patient is alert, rr5 oriented x 3, equal unlabored respirations, skin warm/dry/pink. discharge instruction given and explained without complaints made. Vital Signs: 20:15 BP 134 / 83; Pulse 93; Resp 20; Pulse Ox 100% ; Weight 81.65 kg; Height 5 ft. 7 in. cc3 (170.18 cm); Pain 8/10; 21:10 BP 124 / 79; Pulse 97; Resp 18; Pulse Ox 100% on R/A; mt 21:53 BP 114 / 58; Pulse 94; Resp 18; Pulse Ox 100% on R/A; mt 22:30 BP 132 / 70; Pulse 90; Resp 17; Pulse Ox 99% ; rr5 23:30 BP 117 / 84; Pulse 96; Resp 17; Pulse Ox 99% ; rr5 20:15 Body Mass Index 28.19 (81.65 kg, 170.18 cm) cc3 ED Course: 20:07 Patient arrived in ED. ds1 20:15 Sherrie Trevizo is Primary Nurse. cc3 20:15 Patient has correct armband on for positive identification. Placed in gown. Bed in low rr5 position. Call light in reach. Side rails up X2. Pulse ox on. NIBP on. 20:16 Patient coughing. rr5 20:36 Chyna Veliz FNP-C is PHCP. kb 20:36 Mustapha Cole MD is Attending Physician. kb 21:10 Inserted saline lock: 22 gauge in right forearm, using aseptic technique. Blood rr5 collected. 21:10 No provider procedures requiring assistance completed. rr5 22:06 Notified Nurse Practitioner and/or Physician [place] Seamer of a critical lab result(s), bb glucose of 415 Chyna Veliz SOLAR SYSTEM DESIGNER notified. 22:25 Triage completed. rr5 23:52 IV discontinued, intact, bleeding controlled, No redness/swelling at site. Pressure rr5 dressing applied. Administered Medications: 21:15 Drug: Glucagon 1 mg Route: IVP; Site: right forearm; cc3 23:42 Follow up: Response: No adverse reaction rr5 22:15 Drug: NS 0.9% 1000 ml Route: IV; Rate: 1000 ml; Site: right forearm; rr5 23:30 Follow up: Response: No adverse reaction; IV Status: Completed infusion; IV Intake: rr5 1000ml 22:15 Drug: Insulin Regular Human 5 units {Co-Signature: cc3 (Sherrie Trevizo).} Route: IVP; rr5 Site: right forearm; 23:30 Follow up: Response: No adverse reaction; Marked relief of symptoms rr5 Point of Care Testing: Blood Glucose: 21:14 Blood Glucose: 433 mg/dL; rr5 23:37 Blood Glucose: 211 mg/dL; rr5 Ranges: Intake: 23:30 IV: 1000ml; Total: 1000ml. rr5 Outcome: 23:41 Discharge ordered by . kb 23:52 Discharged to home ambulatory, with family. rr5 23:52 Condition: stable 23:52 Discharge instructions given to patient, Instructed on discharge instructions, follow up and referral plans. Demonstrated understanding of instructions, follow-up care. 23:53 Patient left the ED. rr5 Signatures: Chyna Veliz, STACIA-C CARD HAND-Genia Pierce ds1 Cathleen Harvey RN RN Yi Diallo mt, Charlene cc3 Zay Sarah RN RN rr5 Sherrie Trevizo cc3
--- NOTE | 2018-06-28 23:41 | EDPHYS ---
Physician Documentation [facility] Name: Ernie Rooney Age: 58 yrs Sex: Male : 1960 Arrival Date: 06/28/2018 Time: 20:07 Bed 13 Private MD: ED Physician Mustapha Cole HPI: 06/28 21:29 This 58 yrs old Male presents to ER via Unassigned with complaints of Foreign kb Body In Throat. 21:29 The patient or guardian reports the patient has a suspected foreign body, of the kb throat. The reported likely foreign body is food bolus. Onset: The symptoms/episode began/occurred just prior to arrival. Current symptoms: foreign body sensation. Treatment Prior to Arrival: none. The patient has not experienced similar symptoms in the past. The patient has not recently seen a physician. Pt states he was eating a hamburger and it got stuck in his throat. Historical: - Home Meds: 22:01 venlafaxine 75 mg Oral tab 1 tab 2 times per day [Active]; tramadol 50 mg Oral tab 1 bb tab three times a day [Active]; omeprazole 20 mg Oral cpDR 1 cap once daily [Active]; metformin 1,000 mg Oral tab 1 tab 2 times per day [Active]; gabapentin 800 mg Oral tab 1 tab twice a day [Active]; Protonix 40 mg Oral TbEC 1 tab once daily [Active]; levothyroxine 50 mcg oral tab [Active]; glipizide 10 mg Oral tab 2 tabs 2 times per day [Active]; fenofibrate 200 mg Oral once daily [Active]; tamsulosin 0.4 mg Oral cp24 1 cap once daily [Active]; clopidogrel 75 mg Oral tab 1 tab once daily [Active]; simvastatin 80 mg Oral tab daily [Active]; tizanidine 4 mg Oral cap 1 cap 3 times per day [Active]; doxazosin 8 mg Oral tab 1 tab once daily [Active]; metoprolol tartrate 25 mg Oral tab [Active]; lisinopril 2.5 mg Oral tab [Active]; - PMHx: 22:02 Back pain; Depression; Diabetes - NIDDM; GERD; High Cholesterol; Hyperlipidemia; bb Hypertension; Hypothyroidism; Myocardial infarction; - PSHx: 22:02 pacemaker; back surg; bb - Immunization history:: Adult Immunizations up to date, Flu vaccine is up to date. - Social history:: Smoking status: Patient/guardian denies using tobacco, the patient reports quitting approximately 3 years ago, Patient/guardian denies using alcohol, the patient reports quitting approximately [address] drugs. - Ebola Screening: : Patient negative for fever greater than or equal to 101.5 degrees Fahrenheit, and additional compatible Ebola Virus Disease symptoms Patient denies exposure to infectious person Patient denies travel to an Ebola-affected area in the 21 days before illness onset. ROS: 21:29 Constitutional: Negative for fever, chills, and weight loss, Cardiovascular: Negative kb for chest pain, palpitations, and edema, Respiratory: Negative for shortness of breath, cough, wheezing, and pleuritic chest pain, Abdomen/GI: Negative for abdominal pain, nausea, vomiting, diarrhea, and constipation, MS/Extremity: Negative for injury and deformity, Skin: Negative for injury, rash, and discoloration, Neuro: Negative for headache, weakness, numbness, tingling, and seizure. 21:29 ENT: Positive for foreign body sensation. Exam: 21:30 Constitutional: This is a well developed, well nourished patient who is awake, alert, kb and in no acute distress. Head/Face: Normocephalic, atraumatic. ENT: Nares patent. No nasal discharge, no septal abnormalities noted. Tympanic membranes are normal and external auditory canals are clear. Oropharynx with no redness, swelling, or masses, exudates, or evidence of obstruction, uvula midline. Mucous membranes moist. Neck: Trachea midline, no thyromegaly or masses palpated, and no cervical lymphadenopathy. Supple, full range of motion without nuchal rigidity, or vertebral point tenderness. No Meningismus. Chest/axilla: Normal chest wall appearance and motion. Nontender with no deformity. No lesions are appreciated. Cardiovascular: Regular rate and rhythm with a normal S1 and S2. No gallops, murmurs, or rubs. Normal PMI, no JVD. No pulse deficits. Respiratory: Lungs have equal breath sounds bilaterally, clear to auscultation and percussion. No rales, rhonchi or wheezes noted. No increased work of breathing, no retractions or nasal flaring. Abdomen/GI: Soft, non-tender, with normal bowel sounds. No distension or tympany. No guarding or rebound. No evidence of tenderness throughout. Skin: Warm, dry with normal turgor. Normal color with no rashes, no lesions, and no evidence of cellulitis. MS/ Extremity: Pulses equal, no cyanosis. Neurovascular intact. Full, normal range of motion. Neuro: Awake and alert, GCS 15, oriented to person, place, time, and situation. Cranial nerves II-XII grossly intact. Motor strength 5/5 in all extremities. Sensory grossly intact. Cerebellar exam normal. Normal gait. Vital Signs: 20:15 BP 134 / 83; Pulse 93; Resp 20; Pulse Ox 100% ; Weight 81.65 kg; Height 5 ft. 7 in. cc3 (170.18 cm); Pain 8/10; 21:10 BP 124 / 79; Pulse 97; Resp 18; Pulse Ox 100% on R/A; mt 21:53 BP 114 / 58; Pulse 94; Resp 18; Pulse Ox 100% on R/A; mt 22:30 BP 132 / 70; Pulse 90; Resp 17; Pulse Ox 99% ; rr5 23:30 BP 117 / 84; Pulse 96; Resp 17; Pulse Ox 99% ; rr5 20:15 Body Mass Index 28.19 (81.65 kg, 170.18 cm) cc3 MDM: 20:36 Patient medically screened. kb 21:30 Data reviewed: vital signs, nurses notes. Data interpreted: Pulse oximetry: on room air kb is 100 %. Interpretation: normal. 22:12 Counseling: I had a detailed discussion with the patient and/or guardian regarding: the kb historical points, exam findings, and any diagnostic results supporting the discharge/admit diagnosis, lab results, the need for outpatient follow up, a family practitioner, to return to the emergency department if symptoms worsen or persist or if there are any questions or concerns that arise at home. ED course: Pt reports food bolus went down. Drank a soda with no difficulty. States his blood sugar is always around 400. States it has been that was for 35 years. . 06/28 21:14 Order name: Basic Metabolic Panel; Complete Time: 22:01 kb 06/28 20:41 Order name: IV Start; Complete Time: 21:10 kb 06/28 23:12 Order name: Blood Glucose Level; Complete Time: 23:36 kb Administered Medications: 21:15 Drug: Glucagon 1 mg Route: IVP; Site: right forearm; cc3 23:42 Follow up: Response: No adverse reaction rr5 22:15 Drug: NS 0.9% 1000 ml Route: IV; Rate: 1000 ml; Site: right forearm; rr5 23:30 Follow up: Response: No adverse reaction; IV Status: Completed infusion; IV Intake: rr5 1000ml 22:15 Drug: Insulin Regular Human 5 units {Co-Signature: cc3 (Sherrie Trevizo).} Route: IVP; rr5 Site: right forearm; 23:30 Follow up: Response: No adverse reaction; Marked relief of symptoms rr5 Point of Care Testing: Blood Glucose: 21:14 Blood Glucose: 433 mg/dL; rr5 23:37 Blood Glucose: 211 mg/dL; rr5 Ranges: Critical Glucose Levels:Adult <50 mg/dl or >400 mg/dl <40 mg/dl or >180 mg/dl Disposition: 06/29 12:30 Co-signature as Attending Physician, Mustapha Cole MD I agree with the assessment and caitlyn plan of care. Disposition: 06/28/18 23:41 Discharged to Home. Impression: Foreign body in esophagus - resolved, Hyperglycemia, unspecified. - Condition is Stable. - Medication Reconciliation Form, Thank You Letter, Antibiotic Education, Prescription Opioid Use form. - Follow up: Emergency Department; When: As needed; Reason: Worsening of condition. Follow up: Private Physician; When: 2 - 3 days; Reason: Recheck today's complaints, Continuance of care, Re-evaluation by your physician. Signatures: Dispatcher [employer] EDOH Chyna Veliz, QUALITY INTERN-C QUALITY INTERN-Ckb Mustapha Cole MD MD cha Ballard, Brenda, RN RN bb Sherrie Trevizo3 Zay Sarah RN RN rr5 Sherrie Trevizo cc3 Corrections: (The following items were deleted from the chart) 06/28 23:53 23:41 06/28/2018 23:41 Discharged to Home. Impression: Foreign body in esophagus - rr5 resolved; Hyperglycemia, unspecified. Condition is Stable. Forms are Medication Reconciliation Form, Thank You Letter, Antibiotic Education, Prescription Opioid Use. Follow up: Emergency Department; When: As needed; Reason: Worsening of condition. Follow up: Private Physician; When: 2 - 3 days; Reason: Recheck today's complaints, Continuance of care, Re-evaluation by your physician. kb
[2018-06-29 01:29] VITALS: O2SAT 99
[2018-06-29 01:30] VITALS: BP 117/84
== END 2018-06-28 23:53 | disposition home or self-care (01) ==
LOC: ER 20:05
DX: E11.65 Type 2 diabetes mellitus with hyperglycemia (principal); I10 Essential (primary) hypertension; E03.9 Hypothyroidism, unspecified; E78.00 Pure hypercholesterolemia, unspecified; E78.5 Hyperlipidemia, unspecified; F32.9 Major depressive disorder, single episode, unspecified; I25.2 Old myocardial infarction; K21.9 Gastro-esophageal reflux disease without esophagitis; Z95.0 Presence of cardiac pacemaker; Z87.891 Personal history of nicotine dependence
CPT/HCPCS: 36415; 80048; 82962 ×2; 96361; 96374; 96375; 99284; J1610; J7030

== ENCOUNTER 2018-08-10 16:40 | Emergency (ER) | payer OTHER ==
--- OUTSIDE RECORDS SUMMARY | 2018-08-10 16:42 | XMS REPORT ---
:1960 [facility] Address [address] [place] [address] Care Team Providers Name Role Phone TERA [...] Results Atomic Results Result Comments CTA BRAIN [facility] [address] [place] [address] Patient Name: FAITH VANCE MR #: [id number] : 1960 Age/Sex: 57/M Req #: [id number] Adm Physician: TERA COX MD Ordered by: TERA COX MD Report #: [id number] Location: [facility] Room/Bed: [place] [address] Procedure: [id number] CT/CTA BRAIN Exam Date: 10/24/17 Exam Time: [...] PM Dictated By: ANA MARIA ARTEAGA MD [id number] Transcribed By: ANDREE on 10/24/17 1630 COPY TO: TERA COX MD CT BRAIN WO [place] [address] Patient Name: FAITH VANCE MR #: [id number] : 1960 Age/Sex: 57/M Req #: [id number] Adm Physician: Ordered by: ARLETH WAHL MD Report #: [id number] Location: Room/Bed: Procedure: [id number] CT/CT BRAIN WO Exam Date: 10/23/17 Exam [...] PM Dictated By: ANA MARIA ARTEAGA MD [id number] Transcribed By: ANDREE on 10/23/179 COPY TO: ARLETH WAHL MD CTA CHEST [place] [address] Patient Name: FAITH VANCE MR #: [id number] : 1960 Age/Sex: 57/M Req #: [id number] Adm Physician: Ordered by: ARLETH WAHL MD Report #: [id number] Location: ER Room/Bed: Procedure: [id number] CT/CTA CHEST Exam Date: 10/23/17 Exam Time: [...] reviewed and is below limits set by [facility]). FINDINGS: Lines and Tubes: Pacemaker with leads [...] COPY TO: ARLETH WAHL MD CHEST SINGLE [address] (PORTABLE) [place] [address] Patient Name: FAITH VANCE MR #: [id number] : 1960 Age/Sex: 57/M Req #: [id number] Adm Physician: Ordered by: ARLETH WAHL MD Report #: [id number] Location: ER Room/Bed: Procedure: [id number] DX/CHEST SINGLE (PORTABLE) Exam Date: 10/23/17 Exam [...] TO: ARLETH WAHL MD CT BRAIN WO [place] [address] [place] [address] Patient Name: FAITH VANCE MR #: [id number] : 1960 Age/Sex: 56/M Req #: [id number] Adm Physician: Ordered by: JACQUELYN MONTES DE OCA MD Report #: [id number] Location: ER Room/Bed: Procedure: [id number] CT/CT BRAIN WO Exam Date: Exam Time: [...] MONTES DE OCA MD CT CERVICAL SPINE [place] [address] Patient Name: FAITH VANCE MR #: [id number] : 1960 Age/Sex: 56/M Req #: [id number] Adm Physician: Ordered by: JACQUELYN MONTES DE OCA MD Report #: [id number] Location: ER Room/Bed: Procedure: [id number] CT/CT CERVICAL SPINE WO Exam Date: Exam [...] JACQUELYN MONTES DE OCA MD CHEST SINGLE [address] (PORTABLE) [place] [address] Patient Name: FAITH VANCE MR #: [id number] : 1960 Age/Sex: 56/M Req #: [id number] Adm Physician: Ordered by: JACQUELYN MONTES DE OCA MD Report #: [id number] Location: ER Room/Bed: Procedure: [id number] DX/CHEST SINGLE (PORTABLE) Exam Date: 04/04/17 Exam [...] DE OCA MD HIP RIGHT 2-[address] (+/- PELVIS) [place] [address] Patient Name: FAITH VANCE MR #: [id number] : 1960 Age/Sex: 56/M Req #: [id number] Adm Physician: Ordered by: JACQUELYN MONTES DE OCA MD Report #: [id number] Location: ER Room/Bed: Procedure: [id number] DX/HIP RIGHT 2-3 VW (+/- PELVIS) Exam [...] TO: JACQUELYN MONTES DE OCA MD LUMBAR, [address] COMPLETE MIN 4VW [place] [address] Patient Name: FAITH VANCE MR #: [id number] : 1960 Age/Sex: 56/M Req #: [id number] Adm Physician: Ordered by: JACQUELYN MONTES DE OCA MD Report #: [id number] Location: ER Room/Bed: Procedure: [id number] DX/SP LUMBAR, COMPLETE MIN 4VW Exam Date: [...] JACQUELYN MONTES DE OCA MD US ABDOMEN [place] [address] Patient Name: FAITH VANCE MR #: [id number] : 1960 Age/Sex: 56/M Req #: [id number] [facility] Physician: NICHELLE PALACIOS MD Ordered by: SCOTT AMIN MD Report #: [id number] Location: [facility] Room/Bed: [place] [address] Procedure: [id number] US/US ABDOMEN COMPLETE Exam Date: 03/08/17 Exam [...] 03/08/17 1040 COPY TO: SCOTT AMIN MD [place] [address] Patient Name: FAITH VANCE MR #: [id number] : 1960 Age/Sex: 56/M Req #: [id number] Adm Physician: Ordered by: JACQUELYN MONTES DE OCA MD Report #: [id number] Location: ER Room/Bed: Procedure: [id number] DX/CHEST SINGLE (PORTABLE) Exam Date: 03/05/17 Exam [...]
[2018-08-10 17:33] LABS: Absolute Lymphocytes (CBC) 2.3 K/uL (0.7-4.9); Absolute Monocytes 0.4 K/uL (0.1-1.3); Absolute Neutrophil 3.8 K/uL (1.8-8.0); Basophils % 0.5 % (0-1.3); Hematocrit 39.6 % (39.6-49.0); Lymphocytes % 34.2 % (15.3-44.8); MPV 9.2 fL (7.6-11.3); Monocytes % 6.1 % (3.3-12.3); RBC Red Blood Cell Count 4.42 M/uL (4.33-5.43)
[2018-08-10 17:41] LABS: Protime INR 1.03
--- NOTE | 2018-08-10 18:00 | ER ---
Nurse's Notes [facility] Name: Ernie Rooney Age: 58 yrs Sex: Male : 1960 Arrival Date: 08/10/2018 Time: 16:41 Bed 24 Private MD: Diagnosis: Other chest pain;Type 2 diabetes mellitus-poorly controlled Presentation: 08/10 17:02 Presenting complaint: Presenting complaint: Patient states: c/o left sided chest pain X iw 1 hour, radiates to left side of neck, described as stabbing chest pain, hx of DE, also c/o nausea, dizziness. 17:03 Transition of care: patient was not received from another setting of care. Onset of iw symptoms was August 10, 2018. Risk Assessment: Do you want to hurt yourself or someone else? Patient reports no desire to harm self or others. Initial Sepsis Screen: Does the patient meet any 2 criteria? No. Patient's initial sepsis screen is negative. Does the patient have a suspected source of infection? No. Patient's initial sepsis screen is negative. Care prior to arrival: None. 17:03 Method Of Arrival: Wheelchair iw 17:03 Acuity: TONE 2 iw Historical: - Allergies: 17:08 NKA; iw - Home Meds: 17:08 clopidogrel 75 mg Oral tab 1 tab once daily [Active]; doxazosin 8 mg Oral tab 1 tab iw once daily [Active]; fenofibrate 200 mg Oral once daily [Active]; gabapentin 800 mg Oral tab 1 tab twice a day [Active]; glipizide 10 mg Oral tab 2 tabs 2 times per day [Active]; levothyroxine 50 mcg tab [Active]; lisinopril 2.5 mg Oral tab [Active]; metformin 1,000 mg Oral tab 1 tab 2 times per day [Active]; metoprolol tartrate 25 mg Oral tab [Active]; omeprazole 20 mg Oral cpDR 1 cap once daily [Active]; Protonix 40 mg Oral TbEC 1 tab once daily [Active]; simvastatin 80 mg Oral tab daily [Active]; tamsulosin 0.4 mg Oral cp24 1 cap once daily [Active]; tizanidine 4 mg Oral cap 1 cap 3 times per day [Active]; tramadol 50 mg Oral tab 1 tab three times a day [Active]; venlafaxine 75 mg Oral tab 1 tab 2 times per day [Active]; - PMHx: 17:08 Back pain; Depression; Diabetes - NIDDM; GERD; High Cholesterol; Hyperlipidemia; iw Hypertension; Hypothyroidism; Myocardial infarction; - PSHx: 17:08 pacemaker; back surg; iw - Immunization history:: Adult Immunizations up to date. - Social history:: Smoking status: Patient/guardian denies using tobacco, the patient reports quitting approximately 5 years ago. - Family history:: not pertinent. - Ebola Screening: : No symptoms or risks identified at this time. Screenin:14 Abuse screen: Denies threats or abuse. Denies injuries from another. Nutritional iw screening: No deficits noted. Tuberculosis screening: No symptoms or risk factors identified. Fall Risk IV access (20 points). Assessment: 17:13 General: Appears uncomfortable, Behavior is cooperative. Pain: Complains of pain in iw anterior aspect of left upper chest and left breast Pain radiates to left sternocleidomastoid Pain currently is 9 out of 10 on a pain scale. Quality of pain is described as sharp, stabbing, Pain began 1 hour ago. Is continuous. Neuro: Level of Consciousness is awake, alert, obeys commands, Moves all extremities. Full function. Cardiovascular: Reports chest pain, fatigue, lightheadedness, nausea, Capillary refill < 3 seconds in bilateral fingers Patient's skin is warm and dry. Respiratory: Respiratory effort is even, unlabored, Respiratory pattern is regular, symmetrical. GI: Abdomen is flat, non-distended. Derm: Skin is intact, is healthy with good turgor. Musculoskeletal: Range of motion: intact in all extremities. 18:00 Reassessment: Patient appears in no apparent distress at this time. Patient and/or ph family updated on plan of care and expected duration. Pain level reassessed. Patient is alert, oriented x 3, equal unlabored respirations, skin warm/dry/pink. 19:55 Reassessment: Patient appears in no apparent distress at this time. Patient and/or ed1 family updated on plan of care and expected duration. Pain level reassessed. Patient is alert, oriented x 3, equal unlabored respirations, skin warm/dry/pink. Neuro: Level of Consciousness is awake, alert, obeys commands, Oriented to person, place, time, situation, Reports headache in entire frontal area. 21:18 Reassessment: Patient appears in no apparent distress at this time. No changes from ed1 previously documented assessment. Patient and/or family updated on plan of care and expected duration. Pain level reassessed. Patient is alert, oriented x 3, equal unlabored respirations, skin warm/dry/pink. Patient states symptoms have not improved. Vital Signs: 17:04 BP 125 / 75; Pulse 78; Resp 20; Temp 97.5; Pulse Ox 100% ; Weight 81.65 kg; Height 5 iw ft. 7 in. (170.18 cm); Pain 9/10; 17:56 BP 131 / 74 LA; lt1 17:56 BP 133 / 75 RA; lt1 17:57 BP 131 / 74; Pulse 70; Resp 16; Pulse Ox 100% ; lt1 18:50 BP 115 / 65; Pulse 83; Resp 18; Pulse Ox 98% on R/A; ph 19:55 BP 107 / 68; Pulse 73; Resp 15; Temp 97.2(O); Pulse Ox 100% on R/A; Pain 6/10; ed1 21:18 BP 126 / 75; Pulse 76; Resp 18; Pulse Ox 100% on R/A; Pain 6/10; ed1 17:04 Body Mass Index 28.19 (81.65 kg, 170.18 cm) iw Vitals: 18:50 Cardiac Rhythm Assessment Sinus rhythm. ph ED Course: 16:41 Patient arrived in ED. as 16:59 Freda Perez, RN is Primary Nurse. ph 17:06 Triage completed. iw 17:11 Arm band placed on. iw 17:21 Mustapha Cole MD is Attending Physician. [facility] 17:21 EKG done, by civil geotechnical engineer. reviewed by Mustapha Cole MD. 3 17:23 Initial lab(s) drawn, by ak, sent to lab. Inserted saline lock: 20 gauge in right lt1 antecubital area, using aseptic technique. 18:24 XRAY Chest (1 view) In Process Unspecified. EDMS 18:48 Patient has correct armband on for positive identification. Placed in gown. Bed in low ph position. Call light in reach. Side rails up X 1. child monitor on. Pulse ox on. NIBP on. Warm blanket given. 18:49 No provider procedures requiring assistance completed. Patient transferred, IV remains ph in place. Patient maintains SpO2 saturation greater than 95% on room air. 21:18 Patient transferred, IV remains in place. intact, No redness/swelling at site. ed1 Administered Medications: 18:09 Drug: morphine 4 mg Route: IVP; Site: right antecubital; mg2 18:47 Follow up: Response: No adverse reaction ph 18:09 Drug: Zofran 4 mg Route: IVP; Site: right antecubital; mg2 18:47 Follow up: Response: No adverse reaction ph 18:09 Drug: Pepcid 20 mg Route: IVP; Site: right antecubital; mg2 18:48 Follow up: Response: No adverse reaction ph 18:10 Drug: Aspirin 162 mg Route: PO; mg2 18:47 Follow up: Response: No adverse reaction ph 18:10 Drug: PlaVIX 75 mg Route: PO; mg2 18:47 Follow up: Response: No adverse reaction ph 18:10 Drug: Lovenox 1 mg/kg Route: Sub-Q; Site: right lower abdomen; mg2 18:47 Follow up: Response: No adverse reaction ph 18:36 Drug: Insulin Regular Human 10 units {Co-Signature: ph (Freda Perez RN).} Route: IVP; mg2 Site: right antecubital; Point of Care Testing: Blood Glucose: 19:46 Blood Glucose: 243 mg/dL; ed1 Ranges: Outcome: 18:00 ER care complete, transfer ordered by MD. brady 21:18 Transferred by ground EMS [facility] to [facility], Transfer form ed1 completed. X-rays sent w/ patient. 21:18 Condition: good 21:18 Discharge instructions given to patient, Instructed on the need for transfer, Demonstrated understanding of instructions. 21:20 Patient left the ED. ed1 Signatures: Dispatcher [employer] EDMS Mustapha Cole MD MD cha Martinez, Amelia as Polly Leal RN RN Ladi Fernandez RN RN ed1 Freda Perez RN RN Rico Young RN RN [facility] Jessica Wasserman 1 Freda Perez RN ph Corrections: (The following items were deleted from the chart) 17:06 17:02 Presenting complaint: iw iw 17:06 17:04 BP 125 / 75; Pulse 78bpm; Resp 20bpm; Pulse Ox 100%; Temp 97.5F; lt1 iw 17:52 17:04 BP 125 / 75; Pulse 78bpm; Resp 20bpm; Pulse Ox 100%; Temp 97.5F; Pain 9/10; iw iw
--- NOTE | 2018-08-10 18:01 | EDPHYS ---
Physician Documentation [facility] Name: Ernie Rooney Age: 58 yrs Sex: Male : 1960 Arrival Date: 08/10/2018 Time: 16:41 Bed 24 Private MD: ED Physician Mustapha Cole HPI: 08/10 17:46 This 58 yrs old Male presents to ER via Wheelchair with complaints of Chest caitlyn Pain, Numbness Of Arm. 17:46 The patient or guardian reports chest pain that is located primarily in the substernal caitlyn area. Onset: 3 hour(s) ago. The pain radiates to the left arm, the left shoulder, left neck. Associated signs and symptoms: The patient has no apparent associated signs or symptoms. The chest pain is described as dull, a heaviness, a pressure. Duration: The patient or guardian reports a single episode, that is still ongoing, but improving. Modifying factors: The symptoms are alleviated by nothing. the symptoms are aggravated by nothing. Severity of pain: At its worst the pain was moderate just prior to arrival, today, in the emergency department the pain has improved mildly. The patient has experienced similar episodes in the past, multiple times. Historical: - Allergies: 17:08 NKA; iw - Home Meds: 17:08 clopidogrel 75 mg Oral tab 1 tab once daily [Active]; doxazosin 8 mg Oral tab 1 tab iw once daily [Active]; fenofibrate 200 mg Oral once daily [Active]; gabapentin 800 mg Oral tab 1 tab twice a day [Active]; glipizide 10 mg Oral tab 2 tabs 2 times per day [Active]; levothyroxine 50 mcg tab [Active]; lisinopril 2.5 mg Oral tab [Active]; metformin 1,000 mg Oral tab 1 tab 2 times per day [Active]; metoprolol tartrate 25 mg Oral tab [Active]; omeprazole 20 mg Oral cpDR 1 cap once daily [Active]; Protonix 40 mg Oral TbEC 1 tab once daily [Active]; simvastatin 80 mg Oral tab daily [Active]; tamsulosin 0.4 mg Oral cp24 1 cap once daily [Active]; tizanidine 4 mg Oral cap 1 cap 3 times per day [Active]; tramadol 50 mg Oral tab 1 tab three times a day [Active]; venlafaxine 75 mg Oral tab 1 tab 2 times per day [Active]; - PMHx: 17:08 Back pain; Depression; Diabetes - NIDDM; GERD; High Cholesterol; Hyperlipidemia; iw Hypertension; Hypothyroidism; Myocardial infarction; - PSHx: 17:08 pacemaker; back surg; iw - Immunization history:: Adult Immunizations up to date. - Social history:: Smoking status: Patient/guardian denies using tobacco, the patient reports quitting approximately 5 years ago. - Family history:: not pertinent. - Ebola Screening: : No symptoms or risks identified at this time. ROS: 17:46 Constitutional: Negative for fever, chills, and weight loss, Eyes: Negative for injury, caitlyn pain, redness, and discharge, ENT: Negative for injury, pain, and discharge, Neck: Negative for injury, pain, and swelling, Cardiovascular: Negative for chest pain, palpitations, and edema, Respiratory: Negative for shortness of breath, cough, wheezing, and pleuritic chest pain, Abdomen/GI: Negative for abdominal pain, nausea, vomiting, diarrhea, and constipation, Back: Negative for injury and pain, : Negative for injury, bleeding, discharge, and swelling, MS/Extremity: Negative for injury and deformity, Skin: Negative for injury, rash, and discoloration, Neuro: Negative for headache, weakness, numbness, tingling, and seizure, Psych: Negative for depression, anxiety, suicide ideation, homicidal ideation, and hallucinations, Allergy/Immunology: Negative for hives, rash, and allergies, Endocrine: Negative for neck swelling, polydipsia, polyuria, polyphagia, and marked weight changes, Hematologic/Lymphatic: Negative for swollen nodes, abnormal bleeding, and unusual bruising. 17:46 MS/extremity: Negative for acute changes, injury or acute deformity. Exam: 17:46 Constitutional: This is a well developed, well nourished patient who is awake, alert, caitlyn and in no acute distress. Head/Face: Normocephalic, atraumatic. Eyes: Pupils equal round and reactive to light, extra-ocular motions intact. Lids and lashes normal. Conjunctiva and sclera are non-icteric and not injected. Cornea within normal limits. Periorbital areas with no swelling, redness, or edema. ENT: Nares patent. No nasal discharge, no septal abnormalities noted. Tympanic membranes are normal and external auditory canals are clear. Oropharynx with no redness, swelling, or masses, exudates, or evidence of obstruction, uvula midline. Mucous membranes moist. Neck: Trachea midline, no thyromegaly or masses palpated, and no cervical lymphadenopathy. Supple, full range of motion without nuchal rigidity, or vertebral point tenderness. No Meningismus. Chest/axilla: Normal chest wall appearance and motion. Nontender with no deformity. No lesions are appreciated. Cardiovascular: Regular rate and rhythm with a normal S1 and S2. No gallops, murmurs, or rubs. Normal PMI, no JVD. No pulse deficits. Respiratory: Lungs have equal breath sounds bilaterally, clear to auscultation and percussion. No rales, rhonchi or wheezes noted. No increased work of breathing, no retractions or nasal flaring. Abdomen/GI: Soft, non-tender, with normal bowel sounds. No distension or tympany. No guarding or rebound. No evidence of tenderness throughout. Back: No spinal tenderness. No costovertebral tenderness. Full range of motion. Male : Normal genitalia with no discharge or lesions. Skin: Warm, dry with normal turgor. Normal color with no rashes, no lesions, and no evidence of cellulitis. MS/ Extremity: Pulses equal, no cyanosis. Neurovascular intact. Full, normal range of motion. Neuro: Awake and alert, GCS 15, oriented to person, place, time, and situation. Cranial nerves II-XII grossly intact. Motor strength 5/5 in all extremities. Sensory grossly intact. Cerebellar exam normal. Normal gait. Psych: Awake, alert, with orientation to person, place and time. Behavior, mood, and affect are within normal limits. 17:46 Musculoskeletal/extremity: DVT Exam: No signs of deep vein thrombosis. no pain, no swelling, no tenderness, negative Homans' sign noted on exam, no appreciated bluish discoloration, no erythema, no increased warmth. Vital Signs: 17:04 BP 125 / 75; Pulse 78; Resp 20; Temp 97.5; Pulse Ox 100% ; Weight 81.65 kg; Height 5 iw ft. 7 in. (170.18 cm); Pain 9/10; 17:56 BP 131 / 74 LA; lt1 17:56 BP 133 / 75 RA; lt1 17:57 BP 131 / 74; Pulse 70; Resp 16; Pulse Ox 100% ; lt1 18:50 BP 115 / 65; Pulse 83; Resp 18; Pulse Ox 98% on R/A; ph 19:55 BP 107 / 68; Pulse 73; Resp 15; Temp 97.2(O); Pulse Ox 100% on R/A; Pain 6/10; ed1 21:18 BP 126 / 75; Pulse 76; Resp 18; Pulse Ox 100% on R/A; Pain 6/10; ed1 17:04 Body Mass Index 28.19 (81.65 kg, 170.18 cm) iw MDM: 17:21 Patient medically screened. [facility] 17:50 Data reviewed: vital signs, nurses notes, lab test result(s), EKG, radiologic studies, caitlyn plain films. 08/10 17:11 Order name: Basic Metabolic Panel; Complete Time: 18:29 08/10 17:11 Order name: CBC with Diff; Complete Time: 17:45 08/10 17:11 Order name: LFT's; Complete Time: 18:29 08/10 17:11 Order name: Magnesium; Complete Time: 18:29 08/10 17:11 Order name: NT PRO-BNP; Complete Time: 18:29 08/10 17:11 Order name: PT-INR; Complete Time: 18:00 08/10 17:11 Order name: Troponin (emerg Dept Use Only); Complete Time: 18:29 08/10 17:11 Order name: XRAY Chest (1 view); Complete Time: 18:58 08/10 17:11 Order name: EKG; Complete Time: 17:12 08/10 17:11 Order name: Cardiac monitoring; Complete Time: 17:20 08/10 17:11 Order name: EKG - Nurse/Tech; Complete Time: 17:20 08/10 17:11 Order name: IV Saline Lock; Complete Time: 17:24 08/10 17:11 Order name: Labs collected and sent; Complete Time: 17:24 08/10 17:11 Order name: O2 Per Protocol; Complete Time: 17:20 08/10 17:11 Order name: O2 Sat Monitoring; Complete Time: 17:20 08/10 17:44 Order name: Bilateral blood pressure; Complete Time: 17:57 caitlyn Administered Medications: 18:09 Drug: morphine 4 mg Route: IVP; Site: right antecubital; mg2 18:47 Follow up: Response: No adverse reaction ph 18:09 Drug: Zofran 4 mg Route: IVP; Site: right antecubital; mg2 18:47 Follow up: Response: No adverse reaction ph 18:09 Drug: Pepcid 20 mg Route: IVP; Site: right antecubital; mg2 18:48 Follow up: Response: No adverse reaction ph 18:10 Drug: Aspirin 162 mg Route: PO; mg2 18:47 Follow up: Response: No adverse reaction ph 18:10 Drug: PlaVIX 75 mg Route: PO; mg2 18:47 Follow up: Response: No adverse reaction ph 18:10 Drug: Lovenox 1 mg/kg Route: Sub-Q; Site: right lower abdomen; mg2 18:47 Follow up: Response: No adverse reaction ph 18:36 Drug: Insulin Regular Human 10 units {Co-Signature: ph (Freda Perez RN).} Route: IVP; mg2 Site: right antecubital; Point of Care Testing: Blood Glucose: 19:46 Blood Glucose: 243 mg/dL; ed1 Ranges: Critical Glucose Levels:Adult <50 mg/dl or >400 mg/dl <40 mg/dl or >180 mg/dl Disposition: 08/10/18 18:00 Transfer ordered to [facility]. Diagnosis are Other chest pain, Type 2 diabetes mellitus - poorly controlled. - Reason for transfer: Higher level of care. - Accepting physician is [facility]. - Condition is Fair. - Problem is new. - Symptoms have improved. Signatures: Dispatcher [employer] ANIAMO Mustapha Cole MD MD cha Williams, Irene RN SHEBA Ladi Fernandez RN RN ed1 Freda Perez RN RN ph Rico Young RN RN mg2 Freda Perez RN ph Corrections: (The following items were deleted from the chart) 18:30 18:00 08/10/2018 18:00 Transfer ordered to [facility]. Diagnosis is Other chest caitlyn pain; Type 2 diabetes mellitus. Reason for transfer: Higher level of care. Accepting physician is [facility]. Condition is Fair. Problem is new. Symptoms have improved. caitlyn 21:20 18:30 08/10/2018 18:00 Transfer ordered to [facility]. Diagnosis is Other chest ed1 pain; Type 2 diabetes mellitus - poorly controlled. Reason for transfer: Higher level of care. Accepting physician is yolanda salas. Condition is Fair. Problem is new. Symptoms have improved. caitlyn
[2018-08-10 18:03] LABS: ALT/SGPT 24 U/L (12-78); AST/SGOT 15 U/L (15-37); Albumin 3.9 g/dL (3.4-5.0); Alkaline Phosphatase 120 U/L (45-117); BUN Blood Urea Nitrogen 19 mg/dL (7-18); Bicarbonate 23 mmol/L (21-32); Bilirubin Direct 0.1 mg/dL (0-0.2); Bilirubin Total 0.5 mg/dL (0.2-1.0); Magnesium 1.8 mg/dL (1.8-2.4); NT PRO-BNP 265 pg/mL (<125); Potassium 3.9 mmol/L (3.5-5.1); Protein, Total 7.1 g/dL (6.4-8.2); Sodium Level 138 mmol/L (136-145); Troponin (Emerg Dept Use Only) < 0.02 ng/mL (0.0-0.045)
[2018-08-10 18:04] LABS: Glucose Level 416 mg/dL (74-106)
[2018-08-10] MEDS ORDERED: CLOPIDOGREL 75 MG TABLET ONE (18:09)
[2018-08-10] MEDS ORDERED: ASPIRIN 81 MG CHEWABLE TABLET ONE (18:09)
[2018-08-10] MEDS ORDERED: ONDANSETRON 4 MG/2 ML VIAL ONE (18:10)
[2018-08-10] MEDS ORDERED: MORPHINE 4 MG/ML SYR ONE (18:10)
[2018-08-10] MEDS ORDERED: FAMOTIDINE 20 MG/2 ML VIAL IV ONE (18:10)
[2018-08-10] MEDS ORDERED: ENOXAPARIN 80 MG/0.8 ML SQ ONE (18:10)
--- NOTE | 2018-08-10 18:36 | RAD REPORT ---
EXAM DESCRIPTION: Adrián Single View08/10/2018 6:23 pm CLINICAL HISTORY: Chest pain COMPARISON: April 2018 FINDINGS: The lungs appear clear of acute infiltrate. The heart is mildly enlarged. Postsurgical changes involve the chest. Pacemaker leads are in place IMPRESSION: No acute abnormalities displayed
[2018-08-10] MEDS ORDERED: INSULIN -REGULAR HUMAN 50 UNIT/0.5 ML ML ONE (18:42)
--- NOTE | 2018-08-10 21:15 | EKG ---
Test Date: 2018-08-10 Test Time: 16:58:41 In File Operator: ROBE MEASUREMENT RESULTS: Intervals: Rate: 79 AR: 280 QRSD: 90 QT: 358 QTc: 410 [place]: P: 51 AR: 280 QRS: -10 T: 23 INTERPRETIVE STATEMENTS: Sinus rhythm with 1st degree AV block Inferior infarct, age undetermined Abnormal ECG Compared to ECG 05/03/2018 13:40:03 No significant changes Electronically Signed On 08-10-18 21:14:33 CDT by Igor Gordillo
[2018-08-10 21:41] VITALS: TEMP 97.2; O2SAT 100
[2018-08-10 21:43] VITALS: BP 126/75
== END 2018-08-10 21:20 | disposition short-term general hospital (02) ==
LOC: ER 16:40
DX: R07.9 Chest pain, unspecified (principal); E11.65 Type 2 diabetes mellitus with hyperglycemia; F32.9 Major depressive disorder, single episode, unspecified; E78.5 Hyperlipidemia, unspecified; I10 Essential (primary) hypertension; E03.9 Hypothyroidism, unspecified; K21.9 Gastro-esophageal reflux disease without esophagitis; E78.00 Pure hypercholesterolemia, unspecified; I25.2 Old myocardial infarction
CPT/HCPCS: 93005; 85025; 80048; 36415; 83735; 85610; 82962; 80076; 84484; 83880; 71045; 96375; 96372; 96374; 99285; J1650; J2405

== ENCOUNTER 2018-08-22 18:44 | Emergency (ER) | payer OTHER ==
--- OUTSIDE RECORDS SUMMARY | 2018-08-22 18:47 | XMS REPORT ---
:1960 [facility] Address [address] [place] [address] Care Team Providers Name Role Phone TERA [...] Results Atomic Results Result Comments CTA BRAIN [facility] [address] [place], [place] [address] Patient Name: FAITH VANCE MR #: [id number] : 1960 Age/Sex: 57/M Req #: [id number] Adm Physician: TERA COX MD Ordered by: TERA COX MD Report #: [id number] Location: [facility] Room/Bed: [place] [address] Procedure: [id number] CT/CTA BRAIN Exam Date: 10/24/17 Exam Time: [...] PM Dictated By: ANA MARIA ARTEAGA MD [id number] Transcribed By: ANDREE on 10/24/17 1635 COPY TO: TERA COX MD CT BRAIN WO [place] [address] Patient Name: FAITH VANCE MR #: [id number] : 1960 Age/Sex: 57/M Req #: [id number] Adm Physician: Ordered by: ARLTEH WAHL MD Report #: [id number] Location: Room/Bed: Procedure: [id number] CT/CT BRAIN WO Exam Date: 10/23/17 Exam [...] PM Dictated By: ANA MARIA ARTEAGA MD 4784 Transcribed By: ANDREE on 10/23/17 COPY TO: ARLETH WAHL MD CTA CHEST [place] [address] Patient Name: FAITH VANCE MR #: [id number] : 1960 Age/Sex: 57/M Req #: [id number] Adm Physician: Ordered by: ARLETH WAHL MD Report #: [id number] Location: ER Room/Bed: Procedure: [id number] CT/CTA CHEST Exam Date: 10/23/17 Exam Time: [...] reviewed and is below limits set by [facility]). FINDINGS: Lines and Tubes: Pacemaker [...] COPY TO: ARLETH WAHL MD CHEST SINGLE [address] (PORTABLE) [place] [address] Patient Name: FAITH VANCE MR #: [id number] : 1960 Age/Sex: 57/M Req #: [id number] Adm Physician: Ordered by: ARLETH WAHL MD Report #: [id number] Location: ER Room/Bed: Procedure: [id number] DX/CHEST SINGLE (PORTABLE) Exam Date: 10/23/17 Exam [...] TO: ARLETH WAHL MD CT BRAIN WO [place] [id number] [place] [address] Patient Name: FAITH VANCE MR #: [id number] : 1960 Age/Sex: 56/M Req #: [id number] Adm Physician: Ordered by: JACQUELYN MONTES DE OCA MD Report #: [id number] Location: ER Room/Bed: Procedure: [id number] CT/CT BRAIN WO Exam Date: Exam Time: [...] MONTES DE OCA MD CT CERVICAL SPINE [place] [address] Patient Name: FAITH VANCE MR #: [id number] : 1960 Age/Sex: 56/M Req #: [id number] Adm Physician: Ordered by: JACQUELYN MONTES DE OCA MD Report #: [id number] Location: ER Room/Bed: Procedure: [id number] CT/CT CERVICAL SPINE WO Exam Date: Exam [...] JACQUELYN MONTES DE OCA MD CHEST SINGLE [address] (PORTABLE) [place] [address] Patient Name: FAITH VANCE MR #: [id number] : 1960 Age/Sex: 56/M Req #: [id number] Adm Physician: Ordered by: JACQUELYN MONTES DE OCA MD Report #: [id number] Location: ER Room/Bed: Procedure: [id number] DX/CHEST SINGLE (PORTABLE) Exam Date: 04/04/17 Exam [...] DE OCA MD HIP RIGHT 2-[address] (+/- PELVIS) [place] [address] Patient Name: FAITH VANCE MR #: [id number] : 1960 Age/Sex: 56/M Req #: [id number] Adm Physician: Ordered by: JACQUELYN MONTES DE OCA MD Report #: [id number] Location: ER Room/Bed: Procedure: [id number] DX/HIP RIGHT 2-3 VW (+/- PELVIS) Exam [...] TO: JACQUELYN MONTES DE OCA MD LUMBAR, [address] COMPLETE MIN 4VW [place] [address] Patient Name: FAITH VANCE MR #: [id number] : 1960 Age/Sex: 56/M Req #: [id number] Adm Physician: Ordered by: JACQUELYN MONTES DE OCA MD Report #: [id number] Location: ER Room/Bed: Procedure: [id number] DX/SP LUMBAR, COMPLETE MIN 4VW Exam Date: [...] JACQUELYN MONTES DE OCA MD US ABDOMEN [place] [address] Patient Name: FAITH VANCE MR #: [id number] : 1960 Age/Sex: 56/M Req #: [id number] [facility] Physician: NICHELLE PALACIOS MD Ordered by: SCOTT AMIN MD Report #: [id number] Location: [facility] Room/Bed: [place] [address] Procedure: [id number] US/US ABDOMEN COMPLETE Exam Date: 03/08/17 Exam [...] 03/08/17 1040 COPY TO: SCOTT AMIN MD [place] [address] Patient Name: FAITH VANCE MR #: [id number] : 1960 Age/Sex: 56/M Req #: [id number] Adm Physician: Ordered by: JACQUELYN MONTES DE OCA MD Report #: [id number] Location: ER Room/Bed: Procedure: [id number] DX/CHEST SINGLE (PORTABLE) Exam Date: 03/05/17 Exam [...]
[2018-08-22 23:03] LABS: Absolute Lymphocytes (CBC) 2.4 K/uL (0.7-4.9); Absolute Monocytes 0.8 K/uL (0.1-1.3); Absolute Neutrophil 3.7 K/uL (1.8-8.0); Basophils % 0.5 % (0-1.3); Eosinophils % 2.1 % (0-4.4); Hematocrit 41.7 % (39.6-49.0); Lymphocytes % 33.7 % (15.3-44.8); MPV 8.7 fL (7.6-11.3); RBC Red Blood Cell Count 4.68 M/uL (4.33-5.43)
[2018-08-22] MEDS ORDERED: NA CHLORIDE 0.9% 1,000 ML ONE (23:07)
[2018-08-22] MEDS ORDERED: MORPHINE 2 MG/ML SYR ONE (23:07)
[2018-08-22] MEDS ORDERED: ONDANSETRON 4 MG/2 ML VIAL ONE (23:07)
[2018-08-22 23:28] LABS: Albumin 4.1 g/dL (3.4-5.0); Bilirubin Direct 0.1 mg/dL (0-0.2); Bilirubin Total 0.4 mg/dL (0.2-1.0); Magnesium 1.8 mg/dL (1.8-2.4); Potassium 3.8 mmol/L (3.5-5.1); Protein, Total 7.9 g/dL (6.4-8.2)
[2018-08-23] MEDS ORDERED: INSULIN -REGULAR HUMAN 50 UNIT/0.5 ML ML ONE (00:33)
[2018-08-23 01:00] LABS: Urine Bacteria <20 /HPF (NONE SEEN); Urine Culture Reflex Order NOT NEEDED; Urine RBC NONE SEEN /HPF (NONE SEEN)
[2018-08-23] MEDS ORDERED: KETOROLAC 30 MG/ML INJ ONE (01:26)
--- NOTE | 2018-08-23 03:00 | ER ---
Nurse's Notes [facility] Name: Ernie Rooney Age: 58 yrs Sex: Male : 1960 Arrival Date: 08/22/2018 Time: 18:47 Bed 25 Private MD: Diagnosis: Unspecified abdominal pain-Right flank Presentation: 08/22 19:13 Presenting complaint: Patient states: "I am having pain on my right side of my stomach jd3 as well as I am feeling short of breath. My pacemaker has also been going off for 2 days.". Transition of care: patient was not received from another setting of care. Onset of symptoms was August 19, 2018. Risk Assessment: Do you want to hurt yourself or someone else? Patient reports no desire to harm self or others. Initial Sepsis Screen: Does the patient meet any 2 criteria? No. Patient's initial sepsis screen is negative. Does the patient have a suspected source of infection? No. Patient's initial sepsis screen is negative. Care prior to arrival: None. 19:13 Method Of Arrival: Wheelchair jd3 19:13 Acuity: TONE 2 jd3 Triage Assessment: 19:21 Pain: Complains of pain in chest and right upper quadrant Quality of pain is described jd3 as pressure, sharp, stabbing. Respiratory: Reports shortness of breath at rest Onset: The symptoms/episode began/occurred suddenly, the patient has mild shortness of breath. 19:21 Cardiovascular: Rhythm is irregular. jd3 Historical: - Allergies: 19:17 NKA; jd3 - Home Meds: 19:17 doxazosin 8 mg Oral tab 1 tab once daily [Active]; clopidogrel 75 mg Oral tab 1 tab jd3 once daily [Active]; fenofibrate 200 mg Oral once daily [Active]; gabapentin 800 mg Oral tab 1 tab twice a day [Active]; glipizide 10 mg Oral tab 2 tabs 2 times per day [Active]; levothyroxine 50 mcg tab [Active]; lisinopril 2.5 mg Oral tab [Active]; metformin 1,000 mg Oral tab 1 tab 2 times per day [Active]; metoprolol tartrate 25 mg Oral tab [Active]; omeprazole 20 mg Oral cpDR 1 cap once daily [Active]; Protonix 40 mg Oral TbEC 1 tab once daily [Active]; simvastatin 80 mg Oral tab daily [Active]; tamsulosin 0.4 mg Oral cp24 1 cap once daily [Active]; tizanidine 4 mg Oral cap 1 cap 3 times per day [Active]; tramadol 50 mg Oral tab 1 tab three times a day [Active]; venlafaxine 75 mg Oral tab 1 tab 2 times per day [Active]; - PMHx: 19:17 Depression; Hyperlipidemia; Hypothyroidism; Back pain; GERD; Hypertension; Myocardial jd3 infarction; High Cholesterol; Diabetes - NIDDM; - PSHx: 19:17 pacemaker; back surg; Cholecystectomy; jd3 - Immunization history:: Adult Immunizations up to date. - Social history:: Smoking status: Patient/guardian denies using tobacco, the patient reports quitting approximately 3 years ago. - Ebola Screening: : Patient negative for fever greater than or equal to 101.5 degrees Fahrenheit, and additional compatible Ebola Virus Disease symptoms. Screenin:20 Abuse screen: Denies threats or abuse. Nutritional screening: No deficits noted. jd3 Tuberculosis screening: No symptoms or risk factors identified. 22:00 Fall Risk None identified. ca1 Assessment: 22:00 General: Appears in no apparent distress. uncomfortable, Behavior is calm, cooperative, ca1 appropriate for age. Pain: Complains of pain in anterior aspect of left lateral abdomen and posterior aspect of left lateral abdomen and right upper quadrant Pain radiates to back Pain currently is 9 out of 10 on a pain scale. Quality of pain is described as sharp, stabbing, Pain began 2-3 days ago. Neuro: Level of Consciousness is awake, alert, obeys commands, Oriented to person, place, time, situation. Cardiovascular: Heart tones S1 S2 present Capillary refill < 3 seconds. Cardiovascular: Rhythm is Respiratory: Airway is patent Respiratory effort is even, unlabored, Respiratory pattern is regular, symmetrical, Breath sounds are clear bilaterally. GI: Abdomen is round non-distended, Bowel sounds present X 4 quads. Abdomen is tender to palpation X 4 quads. Guarding noted X 4 quads. : No deficits noted. No signs and/or symptoms were reported regarding the genitourinary system. EENT: No deficits noted. No signs and/or symptoms were reported regarding the EENT system. Derm: Skin is intact, is healthy with good turgor, Skin is pink, warm \\T\\ dry. Musculoskeletal: Circulation, motion, and sensation intact. Capillary refill < 3 seconds. 23:00 Reassessment: Patient appears in no apparent distress at this time. Patient and/or ca1 family updated on plan of care and expected duration. Pain level reassessed. Patient is alert, oriented x 3, equal unlabored respirations, skin warm/dry/pink. 08/23 00:00 Reassessment: Patient appears in no apparent distress at this time. Patient is alert, ca1 oriented x 3, equal unlabored respirations, skin warm/dry/pink. 00:44 Reassessment: Patient appears in no apparent distress at this time. Patient is alert, ca1 oriented x 3, equal unlabored respirations, skin warm/dry/pink. Vital Signs: 08/22 19:18 BP 124 / 66; Pulse 90; Resp 20 S; Temp 98.0(O); Pulse Ox 100% on R/A; Weight 83.91 kg jd3 (R); Height 5 ft. 7 in. (170.18 cm) (R); Pain 9/10; 22:00 BP 135 / 86; Pulse 93; Resp 19; Pulse Ox 100% on R/A; ca1 23:00 BP 148 / 88; Pulse 98; Resp 21; Pulse Ox 100% on R/A; ca1 08/23 00:00 BP 149 / 84; Pulse 84; Resp 19; Pulse Ox 100% on R/A; ca1 00:47 BP 129 / 74; Pulse 88; Resp 19; Pulse Ox 100% on R/A; ca1 02:00 BP 127 / 74 RA; Pulse 88; Resp 18 S; Pulse Ox 100% on R/A; rv 03:08 BP 129 / 77 RA; Pulse 86; Resp 18 S; Pulse Ox 100% on R/A; rv 08/22 19:18 Body Mass Index 28.97 (83.91 kg, 170.18 cm) jd3 ED Course: 08/22 18:47 Patient arrived in ED. rg4 19:15 Triage completed. jd3 19:18 Arm band placed on. EKG completed in triage. Results shown to MD. jd3 22:00 Patient has correct armband on for positive identification. Placed in gown. Bed in low ca1 position. Call light in reach. Side rails up X 1. gambling monitor on. Pulse ox on. NIBP on. Warm blanket given. 22:23 Tali Lim, SHEBA is Primary Nurse. ca1 22:28 Mustapha Joe PA is PHCP. cp 22:28 Curtis Betancourt MD is Attending Physician. cp 22:50 Inserted saline lock: 20 gauge in left forearm, using aseptic technique. Blood rv collected. 08/23 01:13 CT completed. Patient tolerated procedure well. Patient moved to CT via stretcher. Patient moved back from CT. 01:21 CT Abd/Pelvis - W/Contrast: give oral contrast In Process Unspecified. EDMS 03:08 No provider procedures requiring assistance completed. IV discontinued, bleeding rv controlled, No redness/swelling at site. Pressure dressing applied. Administered Medications: 08/22 22:53 Drug: NS 0.9% 1000 ml Route: IV; Rate: 1 bolus; Site: left forearm; ca1 08/23 00:42 Follow up: Response: No adverse reaction; IV Status: Completed infusion ca1 08/22 22:53 Drug: Zofran 4 mg Route: IVP; Site: left forearm; ca1 08/23 00:44 Follow up: Response: No adverse reaction; Nausea is decreased ca1 08/22 22:55 Drug: morphine 2 mg Route: IVP; Site: left forearm; ca1 08/23 00:43 Follow up: Response: No adverse reaction; Pain is unchanged, physician notified ca1 00:15 Drug: Insulin Regular Human 10 units {Co-Signature: rv (Luis Lang RN).} Route: ca1 IVP; Site: left antecubital; 03:07 Follow up: Response: Blood sugar is lowered rv 01:17 Drug: TORadol 30 mg Route: IVP; Site: left antecubital; rv 03:07 Follow up: Response: Pain is decreased rv Outcome: 02:59 Discharge ordered by . cp 03:08 Discharged to home ambulatory. rv 03:08 Condition: good 03:08 Discharge instructions given to patient, Instructed on discharge instructions, follow up and referral plans. medication usage, Demonstrated understanding of instructions, follow-up care, medications, Prescriptions given X 2. 03:09 Patient left the ED. rv Signatures: Dispatcher [employer] EDMS Ishan Hargrove Mustapha Joe PA PA cp Garcia, Rubi rg4 Shadi Coulter RN RN jLuis Watson, SHEBA RN rv Acob, Tali RN RN ca1 Luis Lang RN rv Corrections: (The following items were deleted from the chart) 08/22 19:15 19:13 Presenting complaint: jjocelynn jjocelynn 21:18 19:13 Acuity: TONE 3 jd3 jd3
--- NOTE | 2018-08-23 03:00 | EDPHYS ---
Physician Documentation [facility] Name: Ernie Rooney Age: 58 yrs Sex: Male : 1960 Arrival Date: 08/22/2018 Time: 18:47 Bed 25 Private MD: ED Physician Curtis Betancourt HPI: 08/22 22:35 This 58 yrs old Male presents to ER via Wheelchair with complaints of Flank cp Pain, Shortness Of Breath. 22:35 The patient complains of pain in the right flank. The pain radiates to the chest. cp 22:35 Onset: The symptoms/episode began/occurred 2 day(s) ago, and became worse today. cp 22:35 Modifying factors: the symptoms are aggravated by movement, palpation/percussion. cp Associated signs and symptoms: Pertinent negatives: diarrhea, dysuria, fever, pain radiating to the lower extremities, vomiting. Severity of pain: in the emergency department the pain is unchanged despite home interventions. Historical: - Allergies: 19:17 NKA; jd3 - Home Meds: 19:17 doxazosin 8 mg Oral tab 1 tab once daily [Active]; clopidogrel 75 mg Oral tab 1 tab jd3 once daily [Active]; fenofibrate 200 mg Oral once daily [Active]; gabapentin 800 mg Oral tab 1 tab twice a day [Active]; glipizide 10 mg Oral tab 2 tabs 2 times per day [Active]; levothyroxine 50 mcg tab [Active]; lisinopril 2.5 mg Oral tab [Active]; metformin 1,000 mg Oral tab 1 tab 2 times per day [Active]; metoprolol tartrate 25 mg Oral tab [Active]; omeprazole 20 mg Oral cpDR 1 cap once daily [Active]; Protonix 40 mg Oral TbEC 1 tab once daily [Active]; simvastatin 80 mg Oral tab daily [Active]; tamsulosin 0.4 mg Oral cp24 1 cap once daily [Active]; tizanidine 4 mg Oral cap 1 cap 3 times per day [Active]; tramadol 50 mg Oral tab 1 tab three times a day [Active]; venlafaxine 75 mg Oral tab 1 tab 2 times per day [Active]; - PMHx: 19:17 Depression; Hyperlipidemia; Hypothyroidism; Back pain; GERD; Hypertension; Myocardial jd3 infarction; High Cholesterol; Diabetes - NIDDM; - PSHx: 19:17 pacemaker; back surg; Cholecystectomy; jd3 - Immunization history:: Adult Immunizations up to date. - Social history:: Smoking status: Patient/guardian denies using tobacco, the patient reports quitting approximately 3 years ago. - Ebola Screening: : Patient negative for fever greater than or equal to 101.5 degrees Fahrenheit, and additional compatible Ebola Virus Disease symptoms. ROS: 22:40 Constitutional: Negative for body aches, chills, fever, poor PO intake. cp 22:40 Eyes: Negative for injury, pain, redness, and discharge. cp 22:40 ENT: Negative for drainage from ear(s), ear pain, sore throat, difficulty swallowing, difficulty handling secretions. 22:40 Cardiovascular: Positive for chest pain, of the right lower lateral chest, Negative for edema, palpitations. 22:40 Respiratory: Negative for cough, shortness of breath, wheezing. 22:40 Abdomen/GI: Positive for abdominal pain, Negative for vomiting, diarrhea, constipation, black/tarry stool, rectal bleeding. 22:40 Back: Positive for flank pain, on the right. 22:40 Skin: Negative for cellulitis, rash. 22:40 Neuro: Negative for altered mental status, headache, syncope, weakness. 22:40 All other systems are negative. Exam: 22:35 ECG was reviewed by the Attending Physician. cp 22:45 Constitutional: The patient appears in no acute distress, alert, awake, cp non-diaphoretic, non-toxic, well developed, well nourished, uncomfortable. 22:45 Head/Face: Normocephalic, atraumatic. Eyes: Pupils equal round and reactive to light, cp extra-ocular motions intact. Lids and lashes normal. Conjunctiva and sclera are non-icteric and not injected. Cornea within normal limits. Periorbital areas with no swelling, redness, or edema. ENT: Nares patent. No nasal discharge, no septal abnormalities noted. Tympanic membranes are normal and external auditory canals are clear. Oropharynx with no redness, swelling, or masses, exudates, or evidence of obstruction, uvula midline. Mucous membranes moist. 22:45 Chest/axilla: Inspection: normal, Palpation: crepitus, is not appreciated, tenderness, that is moderate, of the right lower lateral chest wall. 22:45 Cardiovascular: Rate: normal, Rhythm: regular, Edema: is not appreciated, JVD: is not appreciated. 22:45 Respiratory: the patient does not display signs of respiratory distress, Respirations: normal, no use of accessory muscles, no retractions, no splinting, no tachypnea, labored breathing, is not present, Breath sounds: are clear throughout, no decreased breath sounds, no stridor, no wheezing. 22:45 Abdomen/GI: Inspection: abdomen appears normal, Bowel sounds: active, all quadrants, Palpation: soft, in all quadrants, moderate abdominal tenderness, in the anterior aspect of right lateral abdomen, posterior aspect of right lateral abdomen and right upper quadrant, rebound tenderness, is not appreciated, involuntary guarding, is not appreciated. 22:45 Back: vertebral tenderness, is not appreciated. 22:45 Skin: cellulitis, is not appreciated, no rash present. Vital Signs: 19:18 BP 124 / 66; Pulse 90; Resp 20 S; Temp 98.0(O); Pulse Ox 100% on R/A; Weight 83.91 kg jd3 (R); Height 5 ft. 7 in. (170.18 cm) (R); Pain 9/10; 22:00 BP 135 / 86; Pulse 93; Resp 19; Pulse Ox 100% on R/A; ca1 23:00 BP 148 / 88; Pulse 98; Resp 21; Pulse Ox 100% on R/A; ca1 04 00:00 BP 149 / 84; Pulse 84; Resp 19; Pulse Ox 100% on R/A; ca1 00:47 BP 129 / 74; Pulse 88; Resp 19; Pulse Ox 100% on R/A; ca1 02:00 BP 127 / 74 RA; Pulse 88; Resp 18 S; Pulse Ox 100% on R/A; rv 03:08 BP 129 / 77 RA; Pulse 86; Resp 18 S; Pulse Ox 100% on R/A; rv 08/22 19:18 Body Mass Index 28.97 (83.91 kg, 170.18 cm) jd3 MDM: 08/22 22:28 Patient medically screened. cp 08/23 00:00 Differential diagnosis: nephrolithiasis, pyelonephritis, UTI, diverticulitis, cp pancreatitis, ruptured AAA, dissecting AAA. 02:57 Data reviewed: vital signs, nurses notes, lab test result(s), EKG, radiologic studies, cp CT scan, and as a result, I will discharge patient. 02:57 Counseling: I had a detailed discussion with the patient and/or guardian regarding: the cp historical points, exam findings, and any diagnostic results supporting the discharge/admit diagnosis, lab results, radiology results, to return to the emergency department if symptoms worsen or persist or if there are any questions or concerns that arise at home. Response to treatment: the patient's symptoms have markedly improved after treatment, and as a result, I will discharge patient. 08/22 22:33 Order name: Basic Metabolic Panel; Complete Time: 23:49 cp 08/23 02:54 Interpretation: Normal except: GLUC 350; GFR 77. cp 08/22 22:33 Order name: CBC with Diff; Complete Time: 23:49 cp 08/22 22:33 Order name: Creatinine for Radiology; Complete Time: 23:50 cp 08/22 22:33 Order name: Hepatic Function; Complete Time: 23:49 cp 08/22 22:33 Order name: Lipase; Complete Time: 23:50 cp 08/22 22:33 Order name: Magnesium; Complete Time: 23:50 cp 08/22 22:33 Order name: Urine Microscopic Only; Complete Time: 01:03 cp 08/22 22:35 Order name: CT Abd/Pelvis - W/Contrast: give oral contrast cp 08/23 01:24 Order name: Glucose, Ancillary Testing; Complete Time: 02:54 EDMS 08/22 19:19 Order name: EKG; Complete Time: 19:20 jd3 08/22 19:19 Order name: EKG - Nurse/Tech; Complete Time: 19:19 jd3 08/22 22:33 Order name: IV Saline Lock; Complete Time: 22:53 cp 08/22 22:33 Order name: Labs collected and sent; Complete Time: 22:53 cp 08/22 22:33 Order name: Urine Dipstick-Ancillary (obtain specimen); Complete Time: 00:49 cp EC/03 22:35 Rate is 80 beats/min. QRS interval is normal. QT interval is normal. No ST changes cp noted. Interpreted by me. Reviewed by me. Administered Medications: 22:53 Drug: NS 0.9% 1000 ml Route: IV; Rate: 1 bolus; Site: left forearm; ca1 08/23 00:42 Follow up: Response: No adverse reaction; IV Status: Completed infusion ca1 08/22 22:53 Drug: Zofran 4 mg Route: IVP; Site: left forearm; ca1 08/23 00:44 Follow up: Response: No adverse reaction; Nausea is decreased ca1 08/22 22:55 Drug: morphine 2 mg Route: IVP; Site: left forearm; ca1 08/23 00:43 Follow up: Response: No adverse reaction; Pain is unchanged, physician notified ca1 00:15 Drug: Insulin Regular Human 10 units {Co-Signature: rv (Luis Lang RN).} Route: ca1 IVP; Site: left antecubital; 03:07 Follow up: Response: Blood sugar is lowered rv 01:17 Drug: TORadol 30 mg Route: IVP; Site: left antecubital; rv 03:07 Follow up: Response: Pain is decreased rv Disposition: 08/23/18 02:59 Discharged to Home. Impression: Unspecified abdominal pain - Right flank. - Condition is Stable. - Discharge Instructions: Abdominal Pain, Adult, Flank Pain, Adult. - Prescriptions for Naprosyn 500 mg Oral Tablet - take 1 tablet by ORAL route 2 times per day take with food; 20 tablet. Cyclobenzaprine 10 mg Oral Tablet - take 1 tablet by ORAL route every 8 hours As needed no driving while taking medication; 20 tablet. - Medication Reconciliation Form, Thank You Letter, Antibiotic Education, Prescription Opioid Use form. - Follow up: Private Physician; When: 1 - 2 days; Reason: Recheck today's complaints. - Problem is new. - Symptoms have improved. Addendum: 08/24/2018 11:42 Co-signature as Attending Physician, Curtis Betancourt MD I agree with the assessment and w a plan of care. Signatures: Dispatcher [employer] EDWA Mustapha Joe PA PA cp Appiah, William, MD MD wa Davies, Jonathon RN RN Luis Maldonado RN RN rv Tali Lim RN RN ca1 Luis Lang RN rv Corrections: (The following items were deleted from the chart) 08/23 03:09 02:59 08/23/2018 02:59 Discharged to Home. Impression: Unspecified abdominal pain - rv Right flank. Condition is Stable. Forms are Medication Reconciliation Form, Thank You Letter, Antibiotic Education, Prescription Opioid Use. Follow up: Private Physician; When: 1 - 2 days; Reason: Recheck today's complaints. Problem is new. Symptoms have improved. cp
[2018-08-23 03:41] VITALS: TEMP 98; O2SAT 100
[2018-08-23 03:49] VITALS: BP 129/77
--- NOTE | 2018-08-23 11:04 | RAD REPORT ---
EXAM DESCRIPTION: CT - Abdomen Pelvis W Contrast - 08/23/2018 5:34 am CLINICAL HISTORY: Right abdominal pain. COMPARISON: None. TECHNIQUE: Axial [address] imaging of the abdomen and pelvis performed utilizing intravenous contrast. Reformatted coronal and sagittal images reviewed. Axial images acquired in the arterial and portal v enous phases. A dose reduction technique was utilized with automated exposure control according to patient size. FINDINGS: LOWER THORAX: Somewhat spiculated ill-defined groundglass opacity posterior lateral right lower lobe measuring 1.1 is unchanged compared to reference exam suggesting a small focus of scarrin g. No pleural fluid. Heart is normal in size. Pacemaker leads seen in the right atrium and ventricle. ABDOMEN: LIVER/GALLBLADDER: Unremarkable liver. Gallbladder has been resected. The common bile duct is dilate d to 1.1 cm due to postmastectomy status. SPLEEN/PANCREAS: Normal spleen. Normal pancreas. KIDNEYS/ADRENAL GLANDS: Normal adrenal glands. Anterior right renal 2.8 cm cyst. Normal left kidney. No hydronephrosis. RETROPERITONEAL VESSELS/NODES: Normal caliber abdominal aorta with mild atherosclerosis. Normal davonte grover inferior vena cava. No adenopathy. Mesenteric vessels are well opacified. BOWEL: Normal stomach. The small bowel caliber is within normal limits. Appendix is normal within th e right lower quadrant. Normal colon. MESENTERY/PERITONEUM: No adenopathy. No edema. No ascites. PELVIS: BLADDER: Unremarkable bladder. GENITAL ORGANS: Unremarkable prostate. PERITONEUM: No pelvic free fluid or adenopathy. BONES AND SOFT TISSUES: There is moderate spondylosis within the lower thoracic and lumbosacral spin e. There is L4-S1 unilateral left transpedicular fusion hardware. There is bony fusion of the L4-S1 f acets. There are bulky bridging osteophytes within the lower thoracic and lumbar spine, most signific ant along the. Anterior margin of L3 and L4. Intact bony pelvis. Normal hips. Irregularity along the posterior right iliac bone may be sequela of remote trauma. IMPRESSION: 1. No acute finding within the abdomen or pelvis. 2. Right renal cyst. 3. Mild postcholecystectomy bile duct dilatation. 4. Irregularity posterior right iliac bone may be sequela of remote trauma. 4. Posterior lateral right lower lobe scarring. Electronically signed by: Josee Serrano DO 08/23/2018 1:36 AM CDT ADDENDUM #1 Correction to TITLE: CT ABDOMEN AND PELVIS WITH CONTRAST. 08/23/2018. Electronically signed by: Josee Serrano DO 08/23/2018 3:09 AM CDT End of Addendum CT ABDOMEN AND PELVIS WITH CONTRAST. 09/08/2018 CLINICAL HISTORY: Right abdominal pain. COMPARISON: None. TECHNIQUE: Axial [address] imaging of the abdomen and pelvis performed utilizing intravenous contrast. Reformatted coronal and sagittal images reviewed. Axial images acquired in the arterial and portal v enous phases. A dose reduction technique was utilized with automated exposure control according to patient size. FINDINGS: LOWER THORAX: Somewhat spiculated ill-defined groundglass opacity posterior lateral right lower lobe measuring 1.1 is unchanged compared to reference exam suggesting a small focus of scarrin g. No pleural fluid. Heart is normal in size. Pacemaker leads seen in the right atrium and ventricle. ABDOMEN: LIVER/GALLBLADDER: Unremarkable liver. Gallbladder has been resected. The common bile duct is dilate d to 1.1 cm due to postmastectomy status. SPLEEN/PANCREAS: Normal spleen. Normal pancreas. KIDNEYS/ADRENAL GLANDS: Normal adrenal glands. Anterior right renal 2.8 cm cyst. Normal left kidney. No hydronephrosis. RETROPERITONEAL VESSELS/NODES: Normal caliber abdominal aorta with mild atherosclerosis. Normal davonte grover inferior vena cava. No adenopathy. Mesenteric vessels are well opacified. BOWEL: Normal stomach. The small bowel caliber is within normal limits. Appendix is normal within th e right lower quadrant. Normal colon. MESENTERY/PERITONEUM: No adenopathy. No edema. No ascites. PELVIS: BLADDER: Unremarkable bladder. GENITAL ORGANS: Unremarkable prostate. PERITONEUM: No pelvic free fluid or adenopathy. BONES AND SOFT TISSUES: There is moderate spondylosis within the lower thoracic and lumbosacral spin e. There is L4-S1 unilateral left transpedicular fusion hardware. There is bony fusion of the L4-S1 f acets. There are bulky bridging osteophytes within the lower thoracic and lumbar spine, most signific ant along the. Anterior margin of L3 and L4. Intact bony pelvis. Normal hips. Irregularity along the posterior right iliac bone may be sequela of remote trauma. IMPRESSION: 1. No acute finding within the abdomen or pelvis. 2. Right renal cyst. 3. Mild postcholecystectomy bile duct dilatation. 4. Irregularity posterior right iliac bone may be sequela of remote trauma. 4. Posterior lateral right lower lobe scarring. Electronically signed by: Josee Serrano DO 08/23/2018 1:36 AM CDT Due to temporary technical issues with the PACS/Fluency reporting system, reports are being signed by the in house radiologist as a courtesy to ensure prompt reporting. The interpreting radiologist is f ully responsible for the content of the report.
== END 2018-08-23 03:09 | disposition home or self-care (01) ==
LOC: ER 18:44
DX: R10.9 Unspecified abdominal pain (principal); I10 Essential (primary) hypertension; E11.9 Type 2 diabetes mellitus without complications; I25.2 Old myocardial infarction; E03.9 Hypothyroidism, unspecified; F32.9 Major depressive disorder, single episode, unspecified
CPT/HCPCS: 96361; 93005; 85025; 80048; 36415; 83735; 82962; 80076; 81015; 83690; 74177; 96375; 96374; 99285; Q9967; J2270; J7030; J2405

== ENCOUNTER 2018-08-28 20:13 | Emergency (ER) | payer OTHER ==
--- OUTSIDE RECORDS SUMMARY | 2018-08-28 20:31 | XMS REPORT ---
:1960 Author Organization [facility] Address [address] [place] [address] Care Team Providers Name Role Phone TERA [...] Results Atomic Results Result Comments CTA BRAIN [facility] [address] [place], [place] [address] Patient Name: FAITH VANCE MR #: [id number] : 1960 Age/Sex: 57/M Req #: [id number] Adm Physician: TERA COX MD Ordered by: TERA COX MD Report #: [id number] Location: [facility] Room/Bed: [place] [address] Procedure: [id number] CT/CTA BRAIN Exam Date: 10/24/17 Exam Time: [...] PM Dictated By: ANA MARIA ARTEAGA MD [id number] Transcribed By: ANDREE on 10/24/17 1638 COPY TO: TERA COX MD CT BRAIN WO [place] [address] Patient Name: FAITH VANCE MR #: [id number] : 1960 Age/Sex: 57/M Req #: [id number] Adm Physician: Ordered by: ARLETH WAHL MD Report #: [id number] Location: Room/Bed: Procedure: [id number] CT/CT BRAIN WO Exam Date: 10/23/17 Exam [...] PM Dictated By: ANA MARIA ARTEAGA MD [id number] Transcribed By: ANDREE on 10/23/172 COPY TO: ARLETH WAHL MD CTA CHEST [place] [address] Patient Name: FAITH VANCE MR #: [id number] : 1960 Age/Sex: 57/M Req #: [id number] Adm Physician: Ordered by: ARLETH WAHL MD Report #: [id number] Location: ER Room/Bed: Procedure: [id number] CT/CTA CHEST Exam Date: 10/23/17 Exam Time: [...] reviewed and is below limits set by [facility]). FINDINGS: Lines and Tubes: Pacemaker with [...] COPY TO: ARLETH WAHL MD CHEST SINGLE [address] (PORTABLE) [place] [address] Patient Name: FAITH VANCE MR #: [id number] : 1960 Age/Sex: 57/M Req #: [id number] Adm Physician: Ordered by: ARLETH WAHL MD Report #: [id number] Location: ER Room/Bed: Procedure: [id number] DX/CHEST SINGLE (PORTABLE) Exam Date: 10/23/17 Exam [...] TO: ARLETH WAHL MD CT BRAIN WO [place] [id number] [place] [address] Patient Name: FAITH VANCE MR #: [id number] : 1960 Age/Sex: 56/M Req #: [id number] Adm Physician: Ordered by: JACQUELYN MONTES DE OCA MD Report #: [id number] Location: ER Room/Bed: Procedure: [id number] CT/CT BRAIN WO Exam Date: Exam Time: [...] MONTES DE OCA MD CT CERVICAL SPINE [place] [address] Patient Name: FAITH VANCE MR #: [id number] : 1960 Age/Sex: 56/M Req #: [id number] Adm Physician: Ordered by: JACQUELYN MONTES DE OCA MD Report #: [id number] Location: ER Room/Bed: Procedure: [id number] CT/CT CERVICAL SPINE WO Exam Date: Exam [...] JACQUELYN MONTES DE OCA MD CHEST SINGLE [address] (PORTABLE) [place] [address] Patient Name: FAITH VANCE MR #: [id number] : 1960 Age/Sex: 56/M Req #: [id number] Adm Physician: Ordered by: JACQUELYN MONTES DE OCA MD Report #: [id number] Location: ER Room/Bed: Procedure: [id number] DX/CHEST SINGLE (PORTABLE) Exam Date: 04/04/17 Exam [...] DE OCA MD HIP RIGHT 2-[address] (+/- PELVIS) [place] [address] Patient Name: FAITH VANCE MR #: [id number] : 1960 Age/Sex: 56/M Req #: [id number] Adm Physician: Ordered by: JACQUELYN MONTES DE OCA MD Report #: [id number] Location: ER Room/Bed: Procedure: [id number] DX/HIP RIGHT 2-3 VW (+/- PELVIS) Exam [...] TO: JACQUELYN MONTES DE OCA MD LUMBAR, [address] COMPLETE MIN 4VW [place] [address] Patient Name: FAITH VANCE MR #: [id number] : 1960 Age/Sex: 56/M Req #: [id number] Adm Physician: Ordered by: JACQUELYN MONTES DE OCA MD Report #: [id number] Location: ER Room/Bed: Procedure: [id number] DX/SP LUMBAR, COMPLETE MIN 4VW Exam Date: [...] 04/04/2017 2:28 AM Dictated By: MARCO A ATLBOT MD 7 Transcribed By: ANDREE on 04/04/17227 COPY TO: JACQUELYN MONTES DE OCA MD US ABDOMEN [place] [address] Patient Name: FAITH VANCE MR #: [id number] : 1960 Age/Sex: 56/M Req #: [id number] [facility] Physician: NICHELLE PALACIOS MD Ordered by: SCOTT AMIN MD Report #: [id number] Location: [facility] Room/Bed: [place] [address] Procedure: [id number] US/US ABDOMEN COMPLETE Exam Date: 03/08/17 Exam [...] 03/08/17 1040 COPY TO: SCOTT AMIN MD [place] [address] Patient Name: FAITH VANCE MR #: [id number] : 1960 Age/Sex: 56/M Req #: [id number] Adm Physician: Ordered by: JACQUELYN MONTES DE OCA MD Report #: [id number] Location: ER Room/Bed: Procedure: [id number] DX/CHEST SINGLE (PORTABLE) Exam Date: 03/05/17 Exam [...]
--- NOTE | 2018-08-28 20:36 | ER ---
Nurse's Notes [facility] Name: Ernie Rooney Age: 58 yrs Sex: Male : 1960 Arrival Date: 08/28/2018 Time: 20:16 Bed 2 Private MD: Curtis Mosquera E Diagnosis: Chest pain, unspecified;Type 2 diabetes mellitus-poorly controlled Presentation: 08/28 20:16 Presenting complaint: EMS states: they were toned out for report of pt having chest bb pain x 60 minutes pt has extensive cardiac history with multiple MIs, CABG, and pacemaker. Transition of care: patient was not received from another setting of care. Onset of symptoms was August 28, 2018. Risk Assessment: Do you want to hurt yourself or someone else? Patient reports no desire to harm self or others. Initial Sepsis Screen: Does the patient meet any 2 criteria? No. Patient's initial sepsis screen is negative. Does the patient have a suspected source of infection? No. Patient's initial sepsis screen is negative. 20:16 Method Of Arrival: EMS: [facility] bb 20:16 Acuity: TONE 3 bb 20:16 Care prior to arrival: Medication(s) given: ASA, 81 mg, x 4, IV initiated. 18 GA, in bb the left forearm. Historical: - Allergies: 20:22 NKA; bb - Home Meds: 20:22 clopidogrel 75 mg Oral tab 1 tab once daily [Active]; doxazosin 8 mg Oral tab 1 tab bb once daily [Active]; fenofibrate 200 mg Oral once daily [Active]; gabapentin 800 mg Oral tab 1 tab twice a day [Active]; glipizide 10 mg Oral tab 2 tabs 2 times per day [Active]; levothyroxine 50 mcg tab [Active]; lisinopril 2.5 mg Oral tab [Active]; metformin 1,000 mg Oral tab 1 tab 2 times per day [Active]; metoprolol tartrate 25 mg Oral tab [Active]; omeprazole 20 mg Oral cpDR 1 cap once daily [Active]; Protonix 40 mg Oral TbEC 1 tab once daily [Active]; simvastatin 80 mg Oral tab daily [Active]; tamsulosin 0.4 mg Oral cp24 1 cap once daily [Active]; tizanidine 4 mg Oral cap 1 cap 3 times per day [Active]; tramadol 50 mg Oral tab 1 tab three times a day [Active]; venlafaxine 75 mg Oral tab 1 tab 2 times per day [Active]; - PMHx: 20:22 Back pain; Depression; Diabetes - NIDDM; GERD; High Cholesterol; Hyperlipidemia; bb Hypertension; Hypothyroidism; Myocardial infarction; - PSHx: 20:22 CABG; Pacemaker; Cholecystectomy; multiple back surgeries; left arm surgery; bb - Immunization history:: Adult Immunizations up to date. - Social history:: Smoking status: Patient/guardian denies using tobacco, the patient reports quitting approximately 3 years ago, Patient/guardian denies using alcohol, street drugs. - Ebola Screening: : No symptoms or risks identified at this time. - Family history:: not pertinent. Screenin:23 Abuse screen: Denies threats or abuse. Denies injuries from another. Nutritional aa1 screening: No deficits noted. Tuberculosis screening: No symptoms or risk factors identified. Fall Risk None identified. Assessment: 20:23 General: Appears in no apparent distress. uncomfortable, Behavior is calm, cooperative, aa1 appropriate for age. Pain: Complains of pain in mid-sternal area Pain radiates to back, left arm and neck Pain currently is 9 out of 10 on a pain scale. Quality of pain is described as sharp, Pain began suddenly. Neuro: Level of Consciousness is awake, alert, obeys commands, Oriented to person, place, time, situation, Moves all extremities. Full function Speech is normal. Cardiovascular: Reports chest pain, Denies diaphoresis, nausea, palpitations, shortness of breath, Heart tones S1 S2 present Capillary refill < 3 seconds Clubbing of nail beds is absent JVD is absent Patient's skin is warm and dry. Rhythm is regular. Respiratory: Airway is patent Respiratory effort is even, unlabored, Respiratory pattern is regular, symmetrical. GI: No signs and/or symptoms were reported involving the gastrointestinal system. : No signs and/or symptoms were reported regarding the genitourinary system. EENT: No signs and/or symptoms were reported regarding the EENT system. Derm: Skin is intact, is healthy with good turgor, Skin is pink, warm \T\ dry. Musculoskeletal: Circulation, motion, and sensation intact. Capillary refill < 3 seconds. 21:30 Reassessment: Patient appears in no apparent distress at this time. Patient and/or aa1 family updated on plan of care and expected duration. Pain level reassessed. Patient is alert, oriented x 3, equal unlabored respirations, skin warm/dry/pink. Awaiting transfer acceptance to [facility]. 22:23 Reassessment: Patient appears in no apparent distress at this time. Patient and/or aa1 family updated on plan of care and expected duration. Pain level reassessed. Patient is alert, oriented x 3, equal unlabored respirations, skin warm/dry/pink. Pt resting quietly. Attempted to call report to [facility] but was placed on hold with no answer. Will call back. 22:45 Reassessment: Report given to Emelyn Collazo RN at [facility]. Pt requesting more pain aa1 medication. 23:30 Reassessment: Patient appears in no apparent distress at this time. Patient and/or aa1 family updated on plan of care and expected duration. Pain level reassessed. Patient is alert, oriented x 3, equal unlabored respirations, skin warm/dry/pink. Awaiting EMS for transport to [facility]. 08/29 00:31 Reassessment: Patient appears in no apparent distress at this time. Patient and/or aa1 family updated on plan of care and expected duration. Pain level reassessed. Patient is alert, oriented x 3, equal unlabored respirations, skin warm/dry/pink. Awaiting EMS for transport to [facility]. 01:30 Reassessment: Patient appears in no apparent distress at this time. Patient and/or aa1 family updated on plan of care and expected duration. Pain level reassessed. Patient is alert, oriented x 3, equal unlabored respirations, skin warm/dry/pink. Awaiting EMS for transport to [facility]. 02:29 Reassessment: Patient appears in no apparent distress at this time. Patient is alert, aa1 oriented x 3, equal unlabored respirations, skin warm/dry/pink. [facility] present for transfer Patient states feeling better. Vital Signs: 08/28 20:22 BP 119 / 75; Pulse 95; Resp 18 S; Pulse Ox 100% on R/A; Weight 83.91 kg (R); Height 5 bb ft. 7 in. (170.18 cm) (R); Pain 9/10; 21:00 BP 120 / 86; Pulse 83; Resp 16; Pulse Ox 99% on R/A; Pain 8/10; aa1 22:36 BP 115 / 72; Pulse 80; Resp 14; Temp 98.1; Pulse Ox 99% on R/A; Pain 7/10; aa1 04 00:43 BP 105 / 64; Pulse 65; Resp 16; Pulse Ox 100% on R/A; aa1 02:07 BP 111 / 58; Pulse 66; Resp 16; Pulse Ox 100% on R/A; aa1 08/28 20:22 Body Mass Index 28.97 (83.91 kg, 170.18 cm) bb ED Course: 08/28 20:16 Patient arrived in ED. bb 20:19 Triage completed. bb 20:21 Glendy Singh, SHEBA is Primary Nurse. aa1 20:22 Arm band placed on Patient placed in an exam room, on a stretcher, on director of cardiac cath lab, bb on pulse oximetry. EKG completed in triage. Results shown to MD. 20:23 Patient has correct armband on for positive identification. Placed in gown. Bed in low aa1 position. Call light in reach. Side rails up X2. cardiac monitor technician on. Pulse ox on. NIBP on. 20:23 Maintain EMS IV. Dressing intact. Good blood return noted. Site clean \T\ dry. Gauge \T\ aa 1 site: 18g L forearm. Patient maintains SpO2 saturation greater than 95% on room air. 20:27 Heather Bear MD is Attending Physician. [facility] 20:29 Attending Physician role handed off by Heather Bear MD [facility] 20:29 Mustapha Cole MD is Attending Physician. [facility] 20:33 X-ray completed. Portable x-ray completed in exam room. Patient tolerated procedure jr1 well. 20:34 XRAY Chest (1 view) In Process Unspecified. EDMS 23:08 Curtis Mosquera MD is Private Physician. ds1 08/29 02:31 No provider procedures requiring assistance completed. Patient transferred, IV remains aa1 in place. Administered Medications: 08/28 21:02 Drug: Lovenox 1 mg/kg Route: Sub-Q; Site: left lower abdomen; aa1 22:00 Follow up: Response: No adverse reaction aa1 21:02 Drug: Lopressor 25 mg Route: PO; aa1 22:00 Follow up: Response: No adverse reaction aa1 21:02 Drug: NS 0.9% 500 ml Route: IV; Rate: bolus; Site: left forearm; aa1 21:45 Follow up: IV Status: Completed infusion; IV Intake: 500ml aa1 21:05 Drug: Zofran 4 mg Route: IVP; Site: left forearm; aa1 21:05 CANCELLED (received 324 mg ASA DESTINATION IMAGINATION COORDINATOR via EMS): Aspirin 81 mg PO once aa1 21:07 Drug: fentaNYL (PF) 25 mcg Route: IVP; Site: left forearm; aa1 22:00 Follow up: Response: No adverse reaction; Pain is decreased; pt reports mild aa1 improvement with fentanyl 21:12 Not Given (Other Intervention Used): morphine 4 mg IVP once aa1 21:21 Drug: Insulin Regular Human 10 units {Co-Signature: tl2 (Judi Conner RN).} Route: aa1 Sub-Q; Site: left upper arm; 22:55 Follow up: Response: No adverse reaction; Blood sugar is lowered aa1 21:22 Drug: Insulin Regular Human 10 units {Co-Signature: tl2 (Judi Conner RN).} Route: IVP; aa1 Site: left forearm; 22:55 Follow up: Response: Blood sugar is lowered aa1 21:46 Drug: NS 0.9% 1000 ml Route: IV; Rate: 125 ml/hr; Site: left forearm; aa1 22:56 Follow up: IV Status: Infusion continued upon transfer aa1 22:54 Drug: fentaNYL (PF) 25 mcg Route: IVP; Site: left forearm; aa1 08/29 00:00 Follow up: Response: No adverse reaction; Pain is decreased aa1 02:00 Drug: fentaNYL (PF) 25 mcg Route: IVP; Site: left forearm; aa1 02:30 Follow up: Response: No adverse reaction; Pain is decreased aa1 Intake: 08/28 21:45 IV: 500ml; Total: 500ml. aa1 Outcome: 20:35 ER care complete, transfer ordered by MD. brady 08/29 02:31 Transferred by ground EMS to [facility], Transfer form aa1 completed. Condition: stable Discharge instructions given to patient, Instructed on the need for transfer, Demonstrated understanding of instructions. 02:31 Patient left the ED. aa1 Signatures: Dispatcher [employer] EDMS Glendy Singh RN RN aa1 Mustapha Cole MD MD cha Ringgold, Jennifer jr1 Genia Villa1 Cathleen Harvey RN RN bb Alzahri, Mohammad, MD MD ma2 Judi Conner RN tl2 Corrections: (The following items were deleted from the chart) 08/28 20:19 20:16 Care prior to arrival: None. sandra flores
--- NOTE | 2018-08-28 20:37 | EDPHYS ---
Physician Documentation [facility] Name: Ernie Rooney Age: 58 yrs Sex: Male : 1960 Arrival Date: 08/28/2018 Time: 20:16 Bed 2 Private MD: Curtis Mosquera E ED Physician Mustapha Cole HPI: 08/28 20:33 This 58 yrs old Male presents to ER via EMS with complaints of Chest Pain, caitlyn Possible Cardiac Related. 20:33 The patient or guardian reports chest pain that is located primarily in the substernal caitlyn area. Onset: 1 hour(s) ago. The pain does not radiate. Associated signs and symptoms: The patient has no apparent associated signs or symptoms. The chest pain is described as a heaviness, a pressure. Duration: The patient or guardian reports a single episode, that is still ongoing. Modifying factors: The symptoms are alleviated by nothing. the symptoms are aggravated by nothing. Severity of pain: At its worst the pain was moderate in the emergency department the pain is unchanged. The patient has not experienced similar symptoms in the past. Historical: - Allergies: 20:22 NKA; bb - Home Meds: 20:22 clopidogrel 75 mg Oral tab 1 tab once daily [Active]; doxazosin 8 mg Oral tab 1 tab bb once daily [Active]; fenofibrate 200 mg Oral once daily [Active]; gabapentin 800 mg Oral tab 1 tab twice a day [Active]; glipizide 10 mg Oral tab 2 tabs 2 times per day [Active]; levothyroxine 50 mcg tab [Active]; lisinopril 2.5 mg Oral tab [Active]; metformin 1,000 mg Oral tab 1 tab 2 times per day [Active]; metoprolol tartrate 25 mg Oral tab [Active]; omeprazole 20 mg Oral cpDR 1 cap once daily [Active]; Protonix 40 mg Oral TbEC 1 tab once daily [Active]; simvastatin 80 mg Oral tab daily [Active]; tamsulosin 0.4 mg Oral cp24 1 cap once daily [Active]; tizanidine 4 mg Oral cap 1 cap 3 times per day [Active]; tramadol 50 mg Oral tab 1 tab three times a day [Active]; venlafaxine 75 mg Oral tab 1 tab 2 times per day [Active]; - PMHx: 20:22 Back pain; Depression; Diabetes - NIDDM; GERD; High Cholesterol; Hyperlipidemia; bb Hypertension; Hypothyroidism; Myocardial infarction; - PSHx: 20:22 CABG; Pacemaker; Cholecystectomy; multiple back surgeries; left arm surgery; bb - Immunization history:: Adult Immunizations up to date. - Social history:: Smoking status: Patient/guardian denies using tobacco, the patient reports quitting approximately 3 years ago, Patient/guardian denies using alcohol, street drugs. - Ebola Screening: : No symptoms or risks identified at this time. - Family history:: not pertinent. ROS: 20:33 Constitutional: Negative for fever, chills, and weight loss, Eyes: Negative for injury, caitlyn pain, redness, and discharge, ENT: Negative for injury, pain, and discharge, Neck: Negative for injury, pain, and swelling, Respiratory: Negative for shortness of breath, cough, wheezing, and pleuritic chest pain, Abdomen/GI: Negative for abdominal pain, nausea, vomiting, diarrhea, and constipation, Back: Negative for injury and pain, : Negative for injury, bleeding, discharge, and swelling, MS/Extremity: Negative for injury and deformity, Skin: Negative for injury, rash, and discoloration, Neuro: Negative for headache, weakness, numbness, tingling, and seizure, Psych: Negative for depression, anxiety, suicide ideation, homicidal ideation, and hallucinations, Allergy/Immunology: Negative for hives, rash, and allergies, Endocrine: Negative for neck swelling, polydipsia, polyuria, polyphagia, and marked weight changes, Hematologic/Lymphatic: Negative for swollen nodes, abnormal bleeding, and unusual bruising. 20:33 Cardiovascular: Positive for chest pain, of the chest. Exam: 20:33 Constitutional: This is a well developed, well nourished patient who is awake, alert, caitlyn and in no acute distress. Head/Face: Normocephalic, atraumatic. Eyes: Pupils equal round and reactive to light, extra-ocular motions intact. Lids and lashes normal. Conjunctiva and sclera are non-icteric and not injected. Cornea within normal limits. Periorbital areas with no swelling, redness, or edema. ENT: Nares patent. No nasal discharge, no septal abnormalities noted. Tympanic membranes are normal and external auditory canals are clear. Oropharynx with no redness, swelling, or masses, exudates, or evidence of obstruction, uvula midline. Mucous membranes moist. Neck: Trachea midline, no thyromegaly or masses palpated, and no cervical lymphadenopathy. Supple, full range of motion without nuchal rigidity, or vertebral point tenderness. No Meningismus. Chest/axilla: Normal chest wall appearance and motion. Nontender with no deformity. No lesions are appreciated. Cardiovascular: Regular rate and rhythm with a normal S1 and S2. No gallops, murmurs, or rubs. Normal PMI, no JVD. No pulse deficits. Respiratory: Lungs have equal breath sounds bilaterally, clear to auscultation and percussion. No rales, rhonchi or wheezes noted. No increased work of breathing, no retractions or nasal flaring. Abdomen/GI: Soft, non-tender, with normal bowel sounds. No distension or tympany. No guarding or rebound. No evidence of tenderness throughout. Back: No spinal tenderness. No costovertebral tenderness. Full range of motion. Skin: Warm, dry with normal turgor. Normal color with no rashes, no lesions, and no evidence of cellulitis. MS/ Extremity: Pulses equal, no cyanosis. Neurovascular intact. Full, normal range of motion. Neuro: Awake and alert, GCS 15, oriented to person, place, time, and situation. Cranial nerves II-XII grossly intact. Motor strength 5/5 in all extremities. Sensory grossly intact. Cerebellar exam normal. Normal gait. Psych: Awake, alert, with orientation to person, place and time. Behavior, mood, and affect are within normal limits. Vital Signs: 20:22 BP 119 / 75; Pulse 95; Resp 18 S; Pulse Ox 100% on R/A; Weight 83.91 kg (R); Height 5 bb ft. 7 in. (170.18 cm) (R); Pain 9/10; 21:00 BP 120 / 86; Pulse 83; Resp 16; Pulse Ox 99% on R/A; Pain 8/10; aa1 22:36 BP 115 / 72; Pulse 80; Resp 14; Temp 98.1; Pulse Ox 99% on R/A; Pain 7/10; aa1 0410 00:43 BP 105 / 64; Pulse 65; Resp 16; Pulse Ox 100% on R/A; aa1 02:07 BP 111 / 58; Pulse 66; Resp 16; Pulse Ox 100% on R/A; aa1 08/28 20:22 Body Mass Index 28.97 (83.91 kg, 170.18 cm) bb MDM: 08/28 20:27 Patient medically screened. ma2 20:35 Data reviewed: vital signs, EMS record, lab test result(s), EKG, radiologic studies, caitlyn plain films. 08/28 20:21 Order name: Basic Metabolic Panel; Complete Time: 21:16 08/28 20:21 Order name: CBC with Diff; Complete Time: 21:08 08/28 20:21 Order name: LFT's; Complete Time: 21:16 08/28 20:21 Order name: Magnesium; Complete Time: 21:16 08/28 20:21 Order name: NT PRO-BNP; Complete Time: 21:16 08/28 20:21 Order name: PT-INR; Complete Time: 21:49 08/28 20:21 Order name: Troponin (emerg Dept Use Only); Complete Time: 21:16 08/28 20:21 Order name: XRAY Chest (1 view); Complete Time: 21:08 08/28 20:39 Order name: Lipase; Complete Time: 21:16 EDMS 08/28 20:21 Order name: EKG; Complete Time: 20:22 08/28 20:21 Order name: Cardiac monitoring; Complete Time: 20:22 08/28 20:21 Order name: EKG - Nurse/Tech; Complete Time: 20:22 08/28 20:21 Order name: IV Saline Lock; Complete Time: 20:22 08/28 20:21 Order name: Labs collected and sent; Complete Time: 20:22 08/28 20:21 Order name: O2 Per Protocol; Complete Time: 20:22 08/28 20:21 Order name: O2 Sat Monitoring; Complete Time: 20:23 aa Administered Medications: 21:02 Drug: Lovenox 1 mg/kg Route: Sub-Q; Site: left lower abdomen; aa1 22:00 Follow up: Response: No adverse reaction aa1 21:02 Drug: Lopressor 25 mg Route: PO; aa1 22:00 Follow up: Response: No adverse reaction aa1 21:02 Drug: NS 0.9% 500 ml Route: IV; Rate: bolus; Site: left forearm; aa1 21:45 Follow up: IV Status: Completed infusion; IV Intake: 500ml aa1 21:05 Drug: Zofran 4 mg Route: IVP; Site: left forearm; aa1 21:05 CANCELLED (received 324 mg ASA UX UI DESIGNER via EMS): Aspirin 81 mg PO once aa1 21:07 Drug: fentaNYL (PF) 25 mcg Route: IVP; Site: left forearm; aa1 22:00 Follow up: Response: No adverse reaction; Pain is decreased; pt reports mild aa1 improvement with fentanyl 21:12 Not Given (Other Intervention Used): morphine 4 mg IVP once aa1 21:21 Drug: Insulin Regular Human 10 units {Co-Signature: tl2 (Judi Conner RN).} Route: aa1 Sub-Q; Site: left upper arm; 22:55 Follow up: Response: No adverse reaction; Blood sugar is lowered aa1 21:22 Drug: Insulin Regular Human 10 units {Co-Signature: tl2 (Judi Conner RN).} Route: IVP; aa1 Site: left forearm; 22:55 Follow up: Response: Blood sugar is lowered aa1 21:46 Drug: NS 0.9% 1000 ml Route: IV; Rate: 125 ml/hr; Site: left forearm; aa1 22:56 Follow up: IV Status: Infusion continued upon transfer aa1 22:54 Drug: fentaNYL (PF) 25 mcg Route: IVP; Site: left forearm; aa1 08/29 00:00 Follow up: Response: No adverse reaction; Pain is decreased aa1 02:00 Drug: fentaNYL (PF) 25 mcg Route: IVP; Site: left forearm; aa1 02:30 Follow up: Response: No adverse reaction; Pain is decreased aa1 Disposition: 08/28/18 20:35 Transfer ordered to [facility]. Diagnosis are Chest pain, unspecified, Type 2 diabetes mellitus - poorly controlled. - Reason for transfer: Higher level of care. - Accepting physician is to [facility], yaniv brunner - Condition is Fair. - Problem is new. - Symptoms have improved. Signatures: Dispatcher [employer] EDGlendy Bonilla RN RN aa1 Mustapha Cole MD MD cha Ballard, Brenda, RN RN bb Heather Bear MD MD ma2 Judi Conner RN tl2 Corrections: (The following items were deleted from the chart) 08/28 20:39 20:30 LIPASE+C.LAB.BRZ ordered. EDMS EDMS 21:05 20:30 Aspirin 81 mg PO once ordered. [facility] aa1 21:16 20:35 08/28/2018 20:35 Transfer ordered to [facility]. Diagnosis is Chest pain, caitlyn unspecified; Type 2 diabetes mellitus. Reason for transfer: Higher level of care. Accepting physician is to [facility]. Condition is Fair. Problem is new. Symptoms have improved. [facility] 08/29 02:31 08/28 21:16 08/28/2018 20:35 Transfer ordered to [facility]. Diagnosis is Chest aa1 pain, unspecified; Type 2 diabetes mellitus - poorly controlled. Reason for transfer: Higher level of care. Accepting physician is to [facility], sujit brunner. Condition is Fair. Problem is new. Symptoms have improved. caitlyn
[2018-08-28 20:43] LABS: Absolute Lymphocytes (CBC) 2.2 K/uL (0.7-4.9); Absolute Monocytes 0.5 K/uL (0.1-1.3); Absolute Neutrophil 4.7 K/uL (1.8-8.0); Basophils % 0.7 % (0-1.3); Eosinophils % 1.7 % (0-4.4); Hematocrit 44.5 % (39.6-49.0); MPV 9.3 fL (7.6-11.3); Monocytes % 6.9 % (3.3-12.3); RBC Red Blood Cell Count 4.91 M/uL (4.33-5.43)
--- NOTE | 2018-08-28 20:43 | RAD REPORT ---
EXAM DESCRIPTION: RAD - Chest Single View - 08/28/2018 8:36 pm CLINICAL HISTORY: Chest pain COMPARISON: July 2018 TECHNIQUE: AP portable chest image was obtained 2033 hours . FINDINGS: Lung volumes are low. No peripheral mass, consolidation or failure finding. Lung markings are not significantly different from comparison. Heart and vasculature are normal. No measurable pleu ral effusion and no pneumothorax. No acute bony abnormality seen. Pacemaker is in place. Sternotomy w ires noted. No acute aortic finding. IMPRESSION: Mild chronic interstitial lung findings. No acute process seen and no significant change from August 10.
[2018-08-28 20:52] LABS: Protime INR 1.11
[2018-08-28] MEDS ORDERED: METOPROLOL TAR 25 MG TAB ONE (21:00)
[2018-08-28] MEDS ORDERED: ONDANSETRON 4 MG/2 ML VIAL ONE (21:00)
[2018-08-28] MEDS ORDERED: FENTANYL CITR 100 MCG/2 ML ONE (21:00)
[2018-08-28] MEDS ORDERED: ENOXAPARIN 80 MG/0.8 ML SQ ONE (21:01)
[2018-08-28] MEDS ORDERED: NA CHLORIDE 0.9% 1,000 ML ONE ×2 (21:01→21:49)
[2018-08-28 21:09] LABS: ALT/SGPT 26 U/L (12-78); AST/SGOT 14 U/L (15-37); Albumin 3.7 g/dL (3.4-5.0); Alkaline Phosphatase 133 U/L (45-117); BUN Blood Urea Nitrogen 14 mg/dL (7-18); Bicarbonate 18 mmol/L (21-32); Bilirubin Direct 0.1 mg/dL (0-0.2); Bilirubin Total 0.5 mg/dL (0.2-1.0); Lipase 224 U/L (73-393); Magnesium 1.8 mg/dL (1.8-2.4); NT PRO-BNP 157 pg/mL (<125); Potassium 4.1 mmol/L (3.5-5.1); Protein, Total 7.6 g/dL (6.4-8.2); Sodium Level 134 mmol/L (136-145); Troponin (Emerg Dept Use Only) < 0.02 ng/mL (0.0-0.045)
[2018-08-28 21:11] LABS: Glucose Level 514 mg/dL (74-106)
[2018-08-28] MEDS ORDERED: INSULIN -REGULAR HUMAN 50 UNIT/0.5 ML ML ONE (21:29)
[2018-08-29 02:38] VITALS: TEMP 98.1
[2018-08-29 02:40] VITALS: O2SAT 100
[2018-08-29 02:41] VITALS: BP 111/58
--- NOTE | 2018-08-29 10:46 | EKG ---
Test Date: 2018-08-28 Test Time: 20:11:50 Rehabilitation Inspector: ILEANA MEASUREMENT RESULTS: Intervals: Rate: 89 NM: 304 QRSD: 86 QT: 376 QTc: 457 Devon: P: 56 NM: 304 QRS: -10 T: -84 INTERPRETIVE STATEMENTS: Demand pacemaker, interpretation is based on intrinsic rhythm Sinus rhythm with 1st degree AV block with premature atrial complexes and premature paced complexes Inferior infarct, age undetermined Anterolateral infarct, age undetermined Abnormal ECG Compared to ECG 08/22/2018 19:18:59 Atrial premature complex(es) now present First degree AV block now present Pacemaker malfunction is suspected undersensing Myocardial infarct finding still present Electronically Signed On 08-29-18 10:46:18 CDT by Igor Gordillo
== END 2018-08-29 02:31 | disposition short-term general hospital (02) ==
LOC: ER 20:13
DX: R07.9 Chest pain, unspecified (principal); E11.65 Type 2 diabetes mellitus with hyperglycemia; F32.9 Major depressive disorder, single episode, unspecified; E78.5 Hyperlipidemia, unspecified; I10 Essential (primary) hypertension; E03.9 Hypothyroidism, unspecified; K21.9 Gastro-esophageal reflux disease without esophagitis; I25.2 Old myocardial infarction; E78.00 Pure hypercholesterolemia, unspecified; Z95.1 Presence of aortocoronary bypass graft; Z95.0 Presence of cardiac pacemaker; Z87.891 Personal history of nicotine dependence
CPT/HCPCS: 93005; 85025; 80048; 36415; 83735; 85610; 82962; 80076; 84484; 83690; 83880; 71045; J3010; J1650; J7030 ×2; J2405; 96361; 96372; 96374; 96375; 99285

== ENCOUNTER 2018-09-11 09:06 | Emergency (ER) | payer OTHER ==
--- OUTSIDE RECORDS SUMMARY | 2018-09-11 09:07 | XMS REPORT ---
:1960 [facility] Address [address] [place] [address] Care Team Providers Name Role Phone TERA [...] Results Atomic Results Result Comments CTA BRAIN [facility] [address] [place], [place] [address] Patient Name: FAITH VANCE MR #: [id number] : 1960 Age/Sex: 57/M Req #: [id number] Adm Physician: TERA COX MD Ordered by: TERA COX MD Report #: [id number] Location: [facility] Room/Bed: [place] [address] Procedure: [id number] CT/CTA BRAIN Exam Date: 10/24/17 Exam Time: [...] PM Dictated By: ANA MARIA ARTEAGA MD [id number] Transcribed By: ANDREE on 10/24/17 1630 COPY TO: TERA COX MD CT BRAIN WO [place] [address] Patient Name: FAITH VANCE MR #: [id number] : 1960 Age/Sex: 57/M Req #: [id number] Adm Physician: Ordered by: ARLETH WAHL MD Report #: [id number] Location: Room/Bed: Procedure: [id number] CT/CT BRAIN WO Exam Date: 10/23/17 Exam [...] CT of 04/04/2017. Findings discussed with Dr. Wahl disease at 4:36 PM on 10/23/2021. Signed by: Dr. Ana Maria Arteaga M.D. on 10/23/2017 4:43 PM Dictated By: ANA MARIA ARTEAGA MD 0926 Transcribed By: ANDREE on 10/23/174 COPY TO: ARLETH WAHL MD CTA CHEST [place] [address] Patient Name: FAITH VANCE MR #: [id number] : 1960 Age/Sex: 57/M Req #: [id number] Adm Physician: Ordered by: ARLETH WAHL MD Report #: [id number] Location: ER Room/Bed: Procedure: [id number] CT/CTA CHEST Exam Date: 10/23/17 Exam Time: [...] reviewed and is below limits set by [facility]). FINDINGS: Lines and Tubes: Pacemaker with leads [...] COPY TO: ARLETH WAHL MD CHEST SINGLE [address] (PORTABLE) [place] [address] Patient Name: FAITH VANCE MR #: [id number] : 1960 Age/Sex: 57/M Req #: [id number] Adm Physician: Ordered by: ARLETH WAHL MD Report #: [id number] Location: ER Room/Bed: Procedure: [id number] DX/CHEST SINGLE (PORTABLE) Exam Date: 10/23/17 Exam [...] TO: ARLETH WAHL MD CT BRAIN WO [facility] [address] [place] [address] Patient Name: FAITH VANCE MR #: [id number] : 1960 Age/Sex: 56/M Req #: [id number] Adm Physician: Ordered by: JACQUELYN MONTES DE OCA MD Report #: [id number] Location: ER Room/Bed: Procedure: [id number] CT/CT BRAIN WO Exam Date: Exam Time: [...] on 04/04/2017 2:02 AM Dictated By: SEEMA JENA MD 1 Transcribed By: ANDREE on 04/04/17201 COPY TO: JACQUELYN MONTES DE OCA MD CT CERVICAL SPINE [place] [address] Patient Name: FAITH VANCE MR #: [id number] : 1960 Age/Sex: 56/M Req #: [id number] Adm Physician: Ordered by: JACQUELYN MONTES DE OCA MD Report #: [id number] Location: ER Room/Bed: Procedure: [id number] CT/CT CERVICAL SPINE WO Exam Date: Exam [...] JACQUELYN MONTES DE OCA MD CHEST SINGLE [address] (PORTABLE) [place] [address] Patient Name: FAITH VANCE MR #: [id number] : 1960 Age/Sex: 56/M Req #: [id number] Adm Physician: Ordered by: JACQUELYN MONTES DE OCA MD Report #: [id number] Location: ER Room/Bed: Procedure: [id number] DX/CHEST SINGLE (PORTABLE) Exam Date: 04/04/17 Exam [...] DE OCA MD HIP RIGHT 2-[address] (+/- PELVIS) [place] [address] Patient Name: FAITH VANCE MR #: [id number] : 1960 Age/Sex: 56/M Req #: [id number] Adm Physician: Ordered by: JACQUELYN MONTES DE OCA MD Report #: [id number] Location: ER Room/Bed: Procedure: [id number] DX/HIP RIGHT 2-3 VW (+/- PELVIS) Exam [...] JACQUELYN MONTES DE OCA MD SP LUMBAR, [address] COMPLETE MIN 4VW [place] [address] Patient Name: FAITH VANCE MR #: [id number] : 1960 Age/Sex: 56/M Req #: [id number] Adm Physician: Ordered by: JACQUELYN MONTES DE OCA MD Report #: [id number] Location: ER Room/Bed: Procedure: [id number] DX/SP LUMBAR, COMPLETE MIN 4VW Exam Date: [...] JACQUELYN MONTES DE OCA MD US ABDOMEN [place] [address] Patient Name: FAITH VANCE MR #: [id number] : 1960 Age/Sex: 56/M Req #: [id number] [facility] Physician: NICHELLE PALACIOS MD Ordered by: SCOTT AMIN MD Report #: [id number] Location: [facility] Room/Bed: [place] [address] Procedure: [id number] US/US ABDOMEN COMPLETE Exam Date: 03/08/17 Exam [...] 03/08/17 1040 COPY TO: SCOTT AMIN MD [place] [address] Patient Name: FAITH VANCE MR #: [id number] : 1960 Age/Sex: 56/M Req #: [id number] Adm Physician: Ordered by: JACQUELYN MONTES DE OCA MD Report #: [id number] Location: ER Room/Bed: Procedure: [id number] DX/CHEST SINGLE (PORTABLE) Exam Date: 03/05/17 Exam [...]
[2018-09-11 10:32] LABS: Absolute Lymphocytes (CBC) 2.6 K/uL (0.7-4.9); Absolute Monocytes 0.4 K/uL (0.1-1.3); Absolute Neutrophil 3.5 K/uL (1.8-8.0); Basophils % 0.4 % (0-1.3); Eosinophils % 3.8 % (0-4.4); Hematocrit 38.9 % (39.6-49.0); MPV 8.6 fL (7.6-11.3); Monocytes % 6.3 % (3.3-12.3); RBC Red Blood Cell Count 4.45 M/uL (4.33-5.43)
[2018-09-11 10:34] LABS: Protime INR 0.96
--- NOTE | 2018-09-11 10:38 | RAD REPORT ---
EXAM DESCRIPTION: RAD - Chest Single View - 09/11/2018 10:23 am CLINICAL HISTORY: Chest pain, abdominal pain COMPARISON: August 28 TECHNIQUE: AP portable chest image was obtained 1018 hours . FINDINGS: Lung volumes are low. No peripheral mass, consolidation or failure finding. Heart size and vasculature are normal for shallow inspiration portable imaging. Sternotomy wires and pacemaker agai n noted. No measurable pleural effusion and no pneumothorax. No acute bony abnormality seen. No acute aortic findings suspected. IMPRESSION: No acute cardiopulmonary process. No significant change from comparison.
[2018-09-11 10:43] LABS: ALT/SGPT 30 U/L (12-78); AST/SGOT 12 U/L (15-37); Albumin 3.9 g/dL (3.4-5.0); Alkaline Phosphatase 122 U/L (45-117); Amylase Level 89 U/L (25-115); BUN Blood Urea Nitrogen 17 mg/dL (7-18); Bicarbonate 24 mmol/L (21-32); Bilirubin Direct < 0.1 mg/dL (0-0.2); Bilirubin Total 0.4 mg/dL (0.2-1.0); Glucose Level 289 mg/dL (74-106); Lipase 294 U/L (73-393); Magnesium 2.3 mg/dL (1.8-2.4); NT PRO-BNP 239 pg/mL (<125); Protein, Total 7.2 g/dL (6.4-8.2); Sodium Level 138 mmol/L (136-145); Troponin (Emerg Dept Use Only) < 0.02 ng/mL (0.0-0.045)
[2018-09-11] MEDS ORDERED: MORPHINE 4 MG/ML SYR ONE ×2 (10:49→13:01)
[2018-09-11] MEDS ORDERED: ONDANSETRON 4 MG/2 ML VIAL ONE (10:49)
--- NOTE | 2018-09-11 12:43 | RAD REPORT ---
EXAM DESCRIPTION: CT - Abdomen Pelvis W Contrast - 09/11/2018 12:28 pm CLINICAL HISTORY: Right-sided abdominal pain, right flank pain COMPARISON: CT August 23, 2018 TECHNIQUE: Biphasic, helical CT imaging of the abdomen and pelvis was performed following 100 ml non -ionic IV contrast. Oral contrast was given. All CT scans are performed using dose optimization technique as appropriate and may include automated exposure control or mA/KV adjustment according to patient size. FINDINGS: No suspicious findings in the lung bases. Liver shows a mild diffuse fatty infiltration pattern. No focal liver lesion. Spleen and pancreas wit hout acute finding. Cholecystectomy clips are present. Biliary tree is prominent but not outside of n ormal for a post cholecystectomy patient. Symmetric renal function is seen with no hydronephrosis or suspicious renal mass. No pyelonephritis o r acute parenchymal process. Anterior mid right renal cyst unchanged from comparison. Well filled uri nary bladder shows no acute finding. Prostate gland and seminal vesicles within normal limits. No adr enal abnormalities. Moderate stool volume is present throughout the colon. No appendicitis findings. No acute colon or sm all bowel finding. No wall thickening or mass of the stomach identifiable. No free air, free fluid o r inflammatory stranding. No mass or bulky lymphadenopathy. Small bilateral fat filled inguinal nilo ias are present. Disc and bony degenerative changes are present. There is extensive postsurgical change in the lower l umbar spine. No acute component seen. IMPRESSION: No acute findings identified on the study to explain right-sided abdomen or right-sided flank pain. Liver shows mild fatty infiltration. Biliary tree within normal limits for a post cholecystectomy pat ient. No acute or GI process identifiable. No suspicious change from comparison.
--- NOTE | 2018-09-11 12:59 | ER ---
Nurse's Notes [facility] Name: Ernie Rooney Age: 58 yrs Sex: Male : 1960 Arrival Date: 09/11/2018 Time: 09:07 Bed 16 Private MD: Diagnosis: Abdominal tenderness;Constipation;Type 2 diabetes mellitus Presentation: 09/11 09:16 Presenting complaint: Patient states: swelling to right side of abdomen with pain aa5 radiating to right flank. Pt states "they said it was a pulled muscle about a month ago but it keeps getting bigger and it's making me short of breath". Transition of care: patient was not received from another setting of care. Onset of symptoms was 2018. Risk Assessment: Do you want to hurt yourself or someone else? Patient reports no desire to harm self or others. Initial Sepsis Screen: Does the patient meet any 2 criteria? No. Patient's initial sepsis screen is negative. Does the patient have a suspected source of infection? No. Patient's initial sepsis screen is negative. Care prior to arrival: None. 09:16 Method Of Arrival: Ambulatory aa5 09:16 Acuity: TONE 3 aa5 Historical: - Allergies: 09:18 NKA; aa5 - Home Meds: 19:21 clopidogrel 75 mg Oral tab 1 tab once daily [Active]; doxazosin 8 mg Oral tab 1 tab ph once daily [Active]; fenofibrate 200 mg Oral once daily [Active]; gabapentin 800 mg Oral tab 1 tab twice a day [Active]; glipizide 10 mg Oral tab 2 tabs 2 times per day [Active]; levothyroxine 50 mcg tab [Active]; lisinopril 2.5 mg Oral tab [Active]; metformin 1,000 mg Oral tab 1 tab 2 times per day [Active]; metoprolol tartrate 25 mg Oral tab [Active]; omeprazole 20 mg Oral cpDR 1 cap once daily [Active]; Protonix 40 mg Oral TbEC 1 tab once daily [Active]; simvastatin 80 mg Oral tab daily [Active]; tamsulosin 0.4 mg Oral cp24 1 cap once daily [Active]; tizanidine 4 mg Oral cap 1 cap 3 times per day [Active]; tramadol 50 mg Oral tab 1 tab three times a day [Active]; venlafaxine 75 mg Oral tab 1 tab 2 times per day [Active]; - PMHx: 09:18 Back pain; Depression; Diabetes - NIDDM; GERD; High Cholesterol; Hyperlipidemia; aa5 Hypertension; Hypothyroidism; Myocardial infarction; - PSHx: 09:18 CABG; Pacemaker; Cholecystectomy; multiple back surgeries; left arm surgery; aa5 - Immunization history:: Flu vaccine is up to date. - Social history:: Smoking status: Patient/guardian denies using tobacco. - Ebola Screening: : No symptoms or risks identified at this time. - Family history:: not pertinent. Screenin:46 Abuse screen: Denies threats or abuse. Denies injuries from another. Nutritional ph screening: No deficits noted. Tuberculosis screening: No symptoms or risk factors identified. Fall Risk No fall in past 12 months (0 pts). No secondary diagnosis (0 pts). IV access (20 points). Ambulatory Aid- Crutches/Cane/Walker (15 pts). Gait- Weak (10 pts.). Mental Status- Oriented to own ability (0 pts). Total Cummings Fall Scale indicates High Risk Score (45 or more points). Fall prevention measures have been instituted. Side Rails Up X 2 Frequent Obs/Assessments Occuring As available patient and family educated on Fall Prevention Program and Strategies. Assessment: 09:38 General: Appears in no apparent distress. uncomfortable, Behavior is calm, cooperative, ph appropriate for age, Denies fever, feeling ill. Pain: Complains of pain in R rib/upper flank area Aggravated by increased activity, repositioning, Noted to be grimacing, guarding, Also complains of shortness of breath. Neuro: Level of Consciousness is awake, alert, obeys commands, Oriented to person, place, time, situation. Cardiovascular: Capillary refill < 3 seconds in bilateral fingers Patient's skin is warm and dry. Respiratory: Airway is patent Respiratory effort is even, unlabored, Respiratory pattern is regular, symmetrical. GI: Abdomen is flat, Bowel sounds present X 4 quads. swelling noted to R upper abdomen extending to R rib area Patient currently denies nausea, vomiting. Derm: Skin is intact, is fragile, Skin is pink, warm \\T\\ dry. Musculoskeletal: Circulation, motion, and sensation intact. Range of motion: intact in all extremities. 11:03 Reassessment: Patient appears in no apparent distress at this time. Patient and/or ph family updated on plan of care and expected duration. Pain level reassessed. Patient is alert, oriented x 3, equal unlabored respirations, skin warm/dry/pink. Pt completed PO contrast, CT notified. 12:00 Reassessment: Patient appears in no apparent distress at this time. Patient and/or ph family updated on plan of care and expected duration. Pain level reassessed. Patient is alert, oriented x 3, equal unlabored respirations, skin warm/dry/pink. Pt resting quietly, reports that pain has decreased to 6/10, awaiting CT scan. 13:30 Reassessment: Patient appears in no apparent distress at this time. Patient and/or ph family updated on plan of care and expected duration. Pain level reassessed. Patient is alert, oriented x 3, equal unlabored respirations, skin warm/dry/pink. Pt c/o headache, ERP notified, see MAR. Vital Signs: 09:18 BP 116 / 79; Pulse 86; Resp 18 S; Temp 97.0(TE); Pulse Ox 100% on R/A; Weight 86.18 kg aa5 (R); Height 5 ft. 7 in. (170.18 cm) (R); Pain 9/10; 11:07 BP 152 / 90; Pulse 87; Resp 18; Pulse Ox 98% on R/A; ph 12:00 BP 146 / 84; Pulse 84; Resp 18; Pulse Ox 98% on R/A; ph 13:00 BP 139 / 78; Pulse 86; Resp 19; Pulse Ox 99% on R/A; ph 14:25 BP 131 / 82; Pulse 84; Resp 16; Temp 98.0; Pulse Ox 99% on R/A; ph 09:18 Body Mass Index 29.76 (86.18 kg, 170.18 cm) aa5 ED Course: 09:07 Patient arrived in ED. as 09:16 Arm band placed on. aa5 09:17 Triage completed. aa 09:23 Mustapha Cole MD is Attending Physician. [facility] 09:26 Freda Perez, SHEBA is Primary Nurse. ph 09:46 Patient has correct armband on for positive identification. Bed in low position. Call light in reach. Side rails up X 1. k 12 school professional on. Pulse ox on. NIBP on. Door closed. Noise minimized. Warm blanket given. 10:06 EKG done, by solar panel technician. reviewed by Mustapha Cole MD. at1 10:22 X-ray completed. Portable x-ray completed in exam room. Patient tolerated procedure sw well. 10:22 Inserted saline lock: 20 gauge in left antecubital area, using aseptic technique. Blood ph collected. 10:24 XRAY Chest (1 view) In Process Unspecified. EDMS 11:04 No provider procedures requiring assistance completed. Inserted saline lock: 20 gauge ph in right forearm, using aseptic technique. 12:[address] via wheelchair. [id number] 12:28 CT Abd/Pelvis - W/Contrast In Process Unspecified. EDMS 14:30 IV discontinued, intact, bleeding controlled, No redness/swelling at site. Pressure ph dressing applied. Administered Medications: 10:59 Drug: morphine 4 mg Route: IVP; Site: right forearm; ph 11:30 Follow up: Response: No adverse reaction; Pain is decreased ph 10:59 Drug: Zofran 4 mg Route: IVP; Site: right forearm; ph 11:30 Follow up: Response: No adverse reaction ph 14:05 Drug: Tylenol 650 mg Route: PO; ph 14:30 Follow up: Response: No adverse reaction ph Outcome: 12:58 Discharge ordered by . caitlyn 14:30 Patient left the ED. ph 14:30 Discharged to home ambulatory. ph 14:30 Condition: good 14:30 Discharge instructions given to patient, Instructed on discharge instructions, follow up and referral plans. medication usage, Demonstrated understanding of instructions, follow-up care, medications, Prescriptions given X 3. Signatures: Dispatcher [employer] EDAR Mustapha Cole MD MD cha Martinez, Amelia as Calderon, Audri, RN RN aa5 Cecelia Yanez, public address system mechanic EKG Tat1 Freda Perez RN RN Ede, Shae Perez6
--- NOTE | 2018-09-11 12:59 | EDPHYS ---
Physician Documentation [facility] Name: Ernie Rooney Age: 58 yrs Sex: Male : 1960 Arrival Date: 09/11/2018 Time: 09:07 Bed 16 Private MD: ED Physician Mustapha Cole HPI: 09/11 10:32 This 58 yrs old Male presents to ER via Ambulatory with complaints of caitlyn Abdominal Pain. 10:32 The patient presents with abdominal pain. Onset: The symptoms/episode began/occurred 2 caitlyn day(s) ago. The symptoms do not radiate. Associated signs and symptoms: none. The symptoms are described as crampy. Modifying factors: The symptoms are alleviated by nothing, the symptoms are aggravated by nothing. Severity of pain: At its worst the pain was mild moderate in the emergency department the pain is unchanged. The patient has not experienced similar symptoms in the past. Historical: - Allergies: 09:18 NKA; aa5 - Home Meds: 19:21 clopidogrel 75 mg Oral tab 1 tab once daily [Active]; doxazosin 8 mg Oral tab 1 tab ph once daily [Active]; fenofibrate 200 mg Oral once daily [Active]; gabapentin 800 mg Oral tab 1 tab twice a day [Active]; glipizide 10 mg Oral tab 2 tabs 2 times per day [Active]; levothyroxine 50 mcg tab [Active]; lisinopril 2.5 mg Oral tab [Active]; metformin 1,000 mg Oral tab 1 tab 2 times per day [Active]; metoprolol tartrate 25 mg Oral tab [Active]; omeprazole 20 mg Oral cpDR 1 cap once daily [Active]; Protonix 40 mg Oral TbEC 1 tab once daily [Active]; simvastatin 80 mg Oral tab daily [Active]; tamsulosin 0.4 mg Oral cp24 1 cap once daily [Active]; tizanidine 4 mg Oral cap 1 cap 3 times per day [Active]; tramadol 50 mg Oral tab 1 tab three times a day [Active]; venlafaxine 75 mg Oral tab 1 tab 2 times per day [Active]; - PMHx: 09:18 Back pain; Depression; Diabetes - NIDDM; GERD; High Cholesterol; Hyperlipidemia; aa5 Hypertension; Hypothyroidism; Myocardial infarction; - PSHx: 09:18 CABG; Pacemaker; Cholecystectomy; multiple back surgeries; left arm surgery; aa5 - Immunization history:: Flu vaccine is up to date. - Social history:: Smoking status: Patient/guardian denies using tobacco. - Ebola Screening: : No symptoms or risks identified at this time. - Family history:: not pertinent. ROS: 10:32 Constitutional: Negative for fever, chills, and weight loss, Eyes: Negative for injury, caitlyn pain, redness, and discharge, ENT: Negative for injury, pain, and discharge, Neck: Negative for injury, pain, and swelling, Cardiovascular: Negative for chest pain, palpitations, and edema, Respiratory: Negative for shortness of breath, cough, wheezing, and pleuritic chest pain, Back: Negative for injury and pain, : Negative for injury, bleeding, discharge, and swelling, MS/Extremity: Negative for injury and deformity, Skin: Negative for injury, rash, and discoloration, Neuro: Negative for headache, weakness, numbness, tingling, and seizure, Psych: Negative for depression, anxiety, suicide ideation, homicidal ideation, and hallucinations, Allergy/Immunology: Negative for hives, rash, and allergies, Endocrine: Negative for neck swelling, polydipsia, polyuria, polyphagia, and marked weight changes, Hematologic/Lymphatic: Negative for swollen nodes, abnormal bleeding, and unusual bruising. 10:32 Abdomen/GI: Positive for abdominal pain, of the right upper quadrant. Exam: 10:32 Constitutional: This is a well developed, well nourished patient who is awake, alert, caitlyn and in no acute distress. Head/Face: Normocephalic, atraumatic. Eyes: Pupils equal round and reactive to light, extra-ocular motions intact. Lids and lashes normal. Conjunctiva and sclera are non-icteric and not injected. Cornea within normal limits. Periorbital areas with no swelling, redness, or edema. ENT: Nares patent. No nasal discharge, no septal abnormalities noted. Tympanic membranes are normal and external auditory canals are clear. Oropharynx with no redness, swelling, or masses, exudates, or evidence of obstruction, uvula midline. Mucous membranes moist. Neck: Trachea midline, no thyromegaly or masses palpated, and no cervical lymphadenopathy. Supple, full range of motion without nuchal rigidity, or vertebral point tenderness. No Meningismus. Chest/axilla: Normal chest wall appearance and motion. Nontender with no deformity. No lesions are appreciated. Cardiovascular: Regular rate and rhythm with a normal S1 and S2. No gallops, murmurs, or rubs. Normal PMI, no JVD. No pulse deficits. Respiratory: Lungs have equal breath sounds bilaterally, clear to auscultation and percussion. No rales, rhonchi or wheezes noted. No increased work of breathing, no retractions or nasal flaring. Back: No spinal tenderness. No costovertebral tenderness. Full range of motion. Male : Normal genitalia with no discharge or lesions. Skin: Warm, dry with normal turgor. Normal color with no rashes, no lesions, and no evidence of cellulitis. MS/ Extremity: Pulses equal, no cyanosis. Neurovascular intact. Full, normal range of motion. Neuro: Awake and alert, GCS 15, oriented to person, place, time, and situation. Cranial nerves II-XII grossly intact. Motor strength 5/5 in all extremities. Sensory grossly intact. Cerebellar exam normal. Normal gait. Psych: Awake, alert, with orientation to person, place and time. Behavior, mood, and affect are within normal limits. 10:32 Abdomen/GI: Inspection: abdomen appears normal, Bowel sounds: normal, Palpation: moderate abdominal tenderness, in the right upper quadrant. Vital Signs: 09:18 BP 116 / 79; Pulse 86; Resp 18 S; Temp 97.0(TE); Pulse Ox 100% on R/A; Weight 86.18 kg aa5 (R); Height 5 ft. 7 in. (170.18 cm) (R); Pain 9/10; 11:07 BP 152 / 90; Pulse 87; Resp 18; Pulse Ox 98% on R/A; ph 12:00 BP 146 / 84; Pulse 84; Resp 18; Pulse Ox 98% on R/A; ph 13:00 BP 139 / 78; Pulse 86; Resp 19; Pulse Ox 99% on R/A; ph 14:25 BP 131 / 82; Pulse 84; Resp 16; Temp 98.0; Pulse Ox 99% on R/A; ph 09:18 Body Mass Index 29.76 (86.18 kg, 170.18 cm) aa5 MDM: 09:23 Patient medically screened. [facility] 10:34 Data reviewed: vital signs, nurses notes, lab test result(s), EKG, radiologic studies, [facility] CT scan, plain films. 09/11 09:51 Order name: Basic Metabolic Panel; Complete Time: 12:50 ph 09/11 09:51 Order name: CBC with Diff; Complete Time: 12:50 ph 09/11 09:51 Order name: LFT's; Complete Time: 12:50 ph 09/11 09:51 Order name: Magnesium; Complete Time: 12:50 ph 09/11 09:51 Order name: NT PRO-BNP; Complete Time: 12:50 ph 09/11 09:51 Order name: PT-INR; Complete Time: 12:50 ph 09/11 09:51 Order name: Troponin (emerg Dept Use Only); Complete Time: 12:50 ph 09/11 09:51 Order name: XRAY Chest (1 view); Complete Time: 12:50 ph 09/11 09:51 Order name: Lipase; Complete Time: 12:50 ph 09/11 09:51 Order name: Amylase, Serum; Complete Time: 12:50 ph 09/11 10:12 Order name: Urine Culture [facility] 09/11 10:12 Order name: UDS [facility] 09/11 10:34 Order name: AMMONIA; Complete Time: 12:50 [facility] 09/11 13:55 Order name: Urine Dipstick--Ancillary (enter results) 09/11 09:51 Order name: EKG; Complete Time: 09:55 ph 09/11 09:51 Order name: Cardiac monitoring; Complete Time: 10:22 ph 09/11 09:51 Order name: EKG - Nurse/Tech; Complete Time: 10:22 ph 09/11 09:51 Order name: IV Saline Lock; Complete Time: 10:22 ph 09/11 09:51 Order name: Labs collected and sent; Complete Time: 10:22 ph 09/11 09:51 Order name: O2 Per Protocol; Complete Time: 10:22 ph 09/11 09:51 Order name: O2 Sat Monitoring; Complete Time: 10:22 ph 09/11 10:12 Order name: Urine Dipstick-Ancillary (obtain specimen); Complete Time: 19:23 [facility] 09/11 10:34 Order name: CT Abd/Pelvis - W/Contrast; Complete Time: 12:50 [facility] Administered Medications: 10:59 Drug: morphine 4 mg Route: IVP; Site: right forearm; ph 11:30 Follow up: Response: No adverse reaction; Pain is decreased ph 10:59 Drug: Zofran 4 mg Route: IVP; Site: right forearm; ph 11:30 Follow up: Response: No adverse reaction ph 14:05 Drug: Tylenol 650 mg Route: PO; ph 14:30 Follow up: Response: No adverse reaction ph Disposition: 09/11/18 12:58 Discharged to Home. Impression: Abdominal tenderness, Constipation, Type 2 diabetes mellitus. - Condition is Stable. - Discharge Instructions: Abdominal Pain, Adult, Constipation, Adult, Type 2 Diabetes Mellitus, Diagnosis, Adult, Constipation, Adult, Uxob-wh-Syjj, Abdominal Pain, Adult, Xmak-iw-Arrp, Type 2 Diabetes Mellitus, Diagnosis, Adult, Gjct-yf-Gsan. - Prescriptions for Bentyl 20 mg Oral Tablet - take 1 tablet by ORAL route every 6 hours As needed; 20 tablet. Pepcid 20 mg Oral Tablet - take 1 tablet by ORAL route every 12 hours for 10 days; 20 tablet. Miralax 17 gram/dose Oral - take 1 packet by ORAL route once daily dilute powder in 8 ounces of water or juice; 14 packet. - Medication Reconciliation Form, Thank You Letter, Antibiotic Education, Prescription Opioid Use form. - Follow up: Private Physician; When: 2 - 3 days; Reason: Recheck today's complaints, Continuance of care, Re-evaluation by your physician. - Problem is new. - Symptoms have improved. Signatures: Dispatcher [employer] EDKY Mustapha Cole MD MD cha Calderon, Audri RN RN aa5 Freda Perez RN RN ph Corrections: (The following items were deleted from the chart) 13:00 12:58 09/11/2018 12:58 Discharged to Home. Impression: Abdominal tenderness; caitlyn Constipation. Condition is Stable. Forms are Medication Reconciliation Form, Thank You Letter, Antibiotic Education, Prescription Opioid Use. Follow up: Private Physician; When: 2 - 3 days; Reason: Recheck today's complaints, Continuance of care, Re-evaluation by your physician. Problem is new. Symptoms have improved. caitlyn 14:30 13:00 09/11/2018 12:58 Discharged to Home. Impression: Abdominal tenderness; ph Constipation; Type 2 diabetes mellitus. Condition is Stable. Discharge Instructions: Abdominal Pain, Adult, Constipation, Adult, Type 2 Diabetes Mellitus, Diagnosis, Adult, Constipation, Adult, Qujm-my-Fvlf, Abdominal Pain, Adult, Uruw-ul-Sygy, Type 2 Diabetes Mellitus, Diagnosis, Adult, Fivd-qe-Dfyg. Prescriptions for Bentyl 20 mg Oral Tablet - take 1 tablet by ORAL route every 6 hours As needed; 20 tablet, Pepcid 20 mg Oral Tablet - take 1 tablet by ORAL route every 12 hours for 10 days; 20 tablet, Miralax 17 gram/dose Oral - take 1 packet by ORAL route once daily dilute powder in 8 ounces of water or juice; 14 packet. and Forms are Medication Reconciliation Form, Thank You Letter, Antibiotic Education, Prescription Opioid Use. Follow up: Private Physician; When: 2 - 3 days; Reason: Recheck today's complaints, Continuance of care, Re-evaluation by your physician. Problem is new. Symptoms have improved. caitlyn
[2018-09-11] MEDS ORDERED: ACETAMINOPHEN 325 MG TABLET ONE (13:58)
[2018-09-11 14:05] LABS: Barbiturates NEGATIVE (NEGATIVE); Benzodiazepines NEGATIVE (NEGATIVE); Cocaine NEGATIVE (NEGATIVE); METHAMPHETAM NEGATIVE (NEGATIVE); Methadone NEGATIVE (NEGATIVE); Opiates NEGATIVE (NEGATIVE); Phencyclidine NEGATIVE (NEGATIVE); THC Cannibis NEGATIVE (NEGATIVE)
[2018-09-11 14:12] LABS: Urine Blood NEGATIVE (NEG); Urine Glucose 2+ (NEG); Urine Protein NEGATIVE (NEG); Urine pH 6.5 (5.0-7.0)
[2018-09-11 14:41] VITALS: TEMP 97
[2018-09-11 14:42] VITALS: BP 152/90; O2SAT 98
--- NOTE | 2018-09-11 14:59 | EKG ---
Test Date: 2018-09-11 Test Time: 10:00:53 Train Dispatcher: NEYDA MEASUREMENT RESULTS: Intervals: Rate: 78 IN: 292 QRSD: 86 QT: 400 QTc: 456 [place]: P: 47 IN: 292 QRS: -13 T: 204 INTERPRETIVE STATEMENTS: Sinus rhythm with marked sinus arrhythmia with 1st degree AV block Inferior infarct, age undetermined Anterolateral infarct, age undetermined Abnormal ECG Compared to ECG 08/28/2018 20:11:50 Ventricular-paced complex(es) or rhythm no longer present Atrial premature complex(es) no longer present Myocardial infarct finding still present Electronically Signed On 09-11-18 14:56:51 CDT by Luca Royal
== END 2018-09-11 14:30 | disposition home or self-care (01) ==
LOC: ER 09:06
DX: R10.9 Unspecified abdominal pain (principal); K59.00 Constipation, unspecified; E11.9 Type 2 diabetes mellitus without complications; E78.5 Hyperlipidemia, unspecified; E03.9 Hypothyroidism, unspecified; F32.9 Major depressive disorder, single episode, unspecified; E78.00 Pure hypercholesterolemia, unspecified; K21.9 Gastro-esophageal reflux disease without esophagitis; I25.2 Old myocardial infarction
CPT/HCPCS: 93005; 87088; 85025; 87086; 80048; 36415; 82140; 82150; 83735; 85610; 80076; 80307 ×8; 81003; 84484; 83690; 83880; 74177; 71045; 96375; 96374; 99285; Q9967; J2405

== ENCOUNTER 2018-09-28 16:16 | Emergency (ER) | payer OTHER ==
--- OUTSIDE RECORDS SUMMARY | 2018-09-28 16:18 | XMS REPORT ---
:1960 [facility] [address] [place] [address] Care Team Providers Name Role Phone TERA [...] Results Result Comments CTA BRAIN [facility] [address] [place], [place] [address] Patient Name: FAITH VANCE MR #: [id number] : 1960 Age/Sex: 57/M Req #: [id number] Adm Physician: TERA COX MD Ordered by: TERA COX MD Report #: [id number] Location: [facility] Room/Bed: [place] [address] Procedure: [id number] CT/CTA BRAIN Exam Date: 10/24/17 Exam Time: [...] PM Dictated By: ANA MARIA ARTEAGA MD [id number] Transcribed By: ANDREE on 10/24/17 1631 COPY TO: TERA COX MD CT BRAIN WO [place] [address] Patient Name: FAITH VANCE MR #: [id number] : 1960 Age/Sex: 57/M Req #: [id number] Adm Physician: Ordered by: ARLETH AWHL MD Report #: [id number] Location: Room/Bed: Procedure: [id number] CT/CT BRAIN WO Exam Date: 10/23/17 Exam [...] PM Dictated By: ANA MARIA ARTEAGA MD [id number] Transcribed By: ANDREE on 10/23/172 COPY TO: ARLETH WAHL MD CTA CHEST [place] [address] Patient Name: FAITH VANCE MR #: [id number] : 1960 Age/Sex: 57/M Req #: [id number] Adm Physician: Ordered by: ARLETH WAHL MD Report #: [id number] Location: ER Room/Bed: Procedure: [id number] CT/CTA CHEST Exam Date: 10/23/17 Exam Time: [...] reviewed and is below limits set by [facility]). FINDINGS: Lines and Tubes: Pacemaker with [...] possible. 3. Hepatic steatosis. Signed by: Dr. Oern Irizarry MD on 10/23/2017 4:21 PM Dictated By: OERN IRIZARRY MD 1621 Transcribed By: ANDREE on 10/23/17 1621 COPY TO: ARLETH WAHL MD CHEST SINGLE [address] (PORTABLE) [place] [address] Patient Name: FAITH VANCE MR #: [id number] : 1960 Age/Sex: 57/M Req #: [id number] Adm Physician: Ordered by: ARLETH WAHL MD Report #: [id number] Location: ER Room/Bed: Procedure: [id number] DX/CHEST SINGLE (PORTABLE) Exam Date: 10/23/17 Exam [...] TO: ARLETH WAHL MD CT BRAIN WO [place] [id number] [place] [address] Patient Name: FAITH VANCE MR #: [id number] : 1960 Age/Sex: 56/M Req #: [id number] Adm Physician: Ordered by: JACQUELYN MONTES DE OCA MD Report #: [id number] Location: ER Room/Bed: Procedure: [id number] CT/CT BRAIN WO Exam Date: Exam Time: [...] MONTES DE OCA MD CT CERVICAL SPINE [place] [address] Patient Name: FAITH VANCE MR #: [id number] : 1960 Age/Sex: 56/M Req #: [id number] Adm Physician: Ordered by: JACQUELYN MONTES DE OCA MD Report #: [id number] Location: ER Room/Bed: Procedure: [id number] CT/CT CERVICAL SPINE WO Exam Date: Exam [...] JACQUELYN MONTES DE OCA MD CHEST SINGLE [address] (PORTABLE) [place] [address] Patient Name: FAITH VANCE MR #: [id number] : 1960 Age/Sex: 56/M Req #: [id number] Adm Physician: Ordered by: JACQUELYN MONTES DE OCA MD Report #: [id number] Location: ER Room/Bed: Procedure: [id number] DX/CHEST SINGLE (PORTABLE) Exam Date: 04/04/17 Exam [...] DE OCA MD HIP RIGHT 2-[address] (+/- PELVIS) [place] [address] Patient Name: FAITH VANCE MR #: [id number] : 1960 Age/Sex: 56/M Req #: [id number] Adm Physician: Ordered by: JACQUELYN MONTES DE OCA MD Report #: [id number] Location: ER Room/Bed: Procedure: [id number] DX/HIP RIGHT 2-3 VW (+/- PELVIS) Exam [...] TO: JACQUELYN MONTES DE OCA MD LUMBAR, [address] COMPLETE MIN 4VW [place] [address] Patient Name: FAITH VANCE MR #: [id number] : 1960 Age/Sex: 56/M Req #: [id number] Adm Physician: Ordered by: JACQUELYN MONTES DE OCA MD Report #: [id number] Location: ER Room/Bed: Procedure: [id number] DX/SP LUMBAR, COMPLETE MIN 4VW Exam Date: [...] JACQUELYN MONTES DE OCA MD US ABDOMEN [place] [address] Patient Name: FAITH VANCE MR #: [id number] : 1960 Age/Sex: 56/M Req #: [id number] [facility] Physician: NICHELLE PALACIOS MD Ordered by: SCOTT AMIN MD Report #: [id number] Location: [facility] Room/Bed: [place] [address] Procedure: [id number] US/US ABDOMEN COMPLETE Exam Date: 03/08/17 Exam [...] 03/08/17 1040 COPY TO: SCOTT AMIN MD [place] [address] Patient Name: FAITH VANCE MR #: [id number] : 1960 Age/Sex: 56/M Req #: [id number] Adm Physician: Ordered by: JACQUELYN MONTES DE OCA MD Report #: [id number] Location: ER Room/Bed: Procedure: [id number] DX/CHEST SINGLE (PORTABLE) Exam Date: 03/05/17 Exam [...]
[2018-09-28 16:37] LABS: Absolute Lymphocytes (CBC) 2.2 K/uL (0.7-4.9); Absolute Monocytes 0.6 K/uL (0.1-1.3); Absolute Neutrophil 5.3 K/uL (1.8-8.0); Basophils % 0.5 % (0-1.3); Eosinophils % 1.8 % (0-4.4); Hematocrit 45.3 % (39.6-49.0); Lymphocytes % 26.7 % (15.3-44.8); MPV 8.9 fL (7.6-11.3); Monocytes % 6.9 % (3.3-12.3)
[2018-09-28 16:44] LABS: Protime INR 1.01
--- NOTE | 2018-09-28 16:46 | RAD REPORT ---
EXAM DESCRIPTION: CT - Ct Stroke Brain Wo Cont - 09/28/2018 4:36 pm CLINICAL HISTORY: Left-sided weakness and numbness , stroke protocol study CLINICAL HISTORY: CT head October 2017 TECHNIQUE: Axial 5 millimeter thick images of the head were obtained without IV contrast. All CT scans are performed using dose optimization technique as appropriate and may include automated exposure control or mA/KV adjustment according to patient size. FINDINGS: No intracranial hemorrhage, mass, or cerebral edema. No acute infarction identifiable. No extra-axial fluid collections. Rm matter-white matter differentiation is preserved. Patient has underlying atrophy and chronic ischemic change that matches prior imaging. Ventricles are normal. No globe or orbital content abnormality. Arterial and physiologic calcifications are present . Visualized portions of the mastoid air cells, paranasal sinuses, and orbits are unremarkable. Findings telephoned to the referring clinician 1642 hours IMPRESSION: No CT evidence of acute intracranial process. Atrophy and chronic ischemic change matches prior study.
[2018-09-28 16:56] LABS: NT PRO-BNP 286 pg/mL (<125); Troponin (Emerg Dept Use Only) < 0.02 ng/mL (0.0-0.045)
--- NOTE | 2018-09-28 17:28 | RAD REPORT ---
EXAM DESCRIPTION: RAD - Chest Single View - 09/28/2018 4:45 pm CLINICAL HISTORY: Chest pain COMPARISON: September 11, 2018 TECHNIQUE: AP portable chest image was obtained 1642 hours . FINDINGS: Lung volumes are low. No focal lung parenchymal process. Interstitial pattern is not subst antially different from comparison. Left subclavian pacemaker in place. Heart size is normal. No vasc ular engorgement. No measurable pleural effusion and no pneumothorax. No acute bony abnormality seen. No acute aortic findings suspected. IMPRESSION: No acute cardiopulmonary process. No significant change from September 11 imaging.
[2018-09-28] MEDS ORDERED: NA CHLORIDE 0.9% 500 ML ONE (17:34)
[2018-09-28] MEDS ORDERED: FENTANYL CITR 100 MCG/2 ML ONE ×2 (17:34→19:52)
[2018-09-28] MEDS ORDERED: INSULIN -REGULAR HUMAN 50 UNIT/0.5 ML ML ONE (17:34)
[2018-09-28] MEDS ORDERED: NA CHLORIDE 0.9% 1,000 ML ONE (17:34)
[2018-09-28] MEDS ORDERED: ONDANSETRON 4 MG/2 ML VIAL ONE (17:41)
[2018-09-28 17:56] LABS: Albumin 3.8 g/dL (3.4-5.0); Bilirubin Direct 0.2 mg/dL (0-0.2); Bilirubin Total 0.6 mg/dL (0.2-1.0); Magnesium 1.8 mg/dL (1.8-2.4); Potassium 4.5 mmol/L (3.5-5.1); Protein, Total 8.2 g/dL (6.4-8.2)
--- NOTE | 2018-09-28 18:34 | EDPHYS ---
Physician Documentation [facility] Name: Ernie Rooney Age: 58 yrs Sex: Male : 1960 Arrival Date: 09/28/2018 Time: 16:22 Bed 2 Private MD: ED Physician Angel Merlos HPI: 09/28 16:40 This 58 yrs old Male presents to ER via EMS with complaints of Chest Pain. cp 16:40 The patient or guardian reports chest pain that is located primarily in the anterior cp chest wall, bilaterally. Onset: today, less than 1 hour ago. Duration: The episode is continuous. 16:45 The patient's problem is reported as numbness of right lower leg that started 30 cp minutes ago. 16:45 Severity of symptoms: in the emergency department the symptoms are unchanged despite cp home interventions. Historical: - Allergies: 16:30 NKA; aa5 - Home Meds: 16:30 clopidogrel 75 mg Oral tab 1 tab once daily [Active]; doxazosin 8 mg Oral tab 1 tab aa5 once daily [Active]; fenofibrate 200 mg Oral once daily [Active]; gabapentin 800 mg Oral tab 1 tab twice a day [Active]; glipizide 10 mg Oral tab 2 tabs 2 times per day [Active]; levothyroxine 50 mcg tab [Active]; lisinopril 2.5 mg Oral tab [Active]; metformin 1,000 mg Oral tab 1 tab 2 times per day [Active]; metoprolol tartrate 25 mg Oral tab [Active]; omeprazole 20 mg Oral cpDR 1 cap once daily [Active]; Protonix 40 mg Oral TbEC 1 tab once daily [Active]; simvastatin 80 mg Oral tab daily [Active]; tamsulosin 0.4 mg Oral cp24 1 cap once daily [Active]; tizanidine 4 mg Oral cap 1 cap 3 times per day [Active]; tramadol 50 mg Oral tab 1 tab three times a day [Active]; venlafaxine 75 mg Oral tab 1 tab 2 times per day [Active]; - PMHx: 16:30 Back pain; Depression; Diabetes - NIDDM; GERD; High Cholesterol; Hyperlipidemia; aa5 Hypertension; Hypothyroidism; Myocardial infarction; - PSHx: 16:30 CABG; Pacemaker; Cholecystectomy; multiple back surgeries; left arm surgery; aa5 - Immunization history:: Adult Immunizations up to date. - Social history:: Smoking status: Patient/guardian denies using tobacco. - Ebola Screening: : No symptoms or risks identified at this time. ROS: 16:45 Constitutional: Negative for body aches, chills, fever, poor PO intake. cp 16:45 Eyes: Negative for acute changes, pain, redness. cp 16:45 ENT: Negative for drainage from ear(s), ear pain, sore throat, difficulty swallowing, difficulty handling secretions. 16:45 Cardiovascular: Positive for chest pain, Negative for edema, palpitations. 16:45 Respiratory: Negative for cough, shortness of breath, wheezing. 16:45 Abdomen/GI: Negative for abdominal pain, nausea, vomiting, and diarrhea, constipation, black/tarry stool, rectal bleeding. 16:45 MS/extremity: Negative for injury or acute deformity, decreased range of motion, pain. 16:45 Skin: Negative for cellulitis, rash. 16:45 Neuro: Positive for numbness, of the from left knee down to left foot, Negative for altered mental status, dizziness, headache, syncope, weakness. 16:45 All other systems are negative. Exam: 16:45 ECG was reviewed by the Attending Physician. cp 16:48 Constitutional: The patient appears in no acute distress, alert, awake, cp non-diaphoretic, non-toxic, well developed, well nourished, uncomfortable. 16:48 Head/Face: Normocephalic, atraumatic. cp 16:48 Eyes: Periorbital structures: appear normal, Pupils: equal, round, and reactive to light and accomodation, Extraocular movements: intact throughout, Conjunctiva: normal, no exudate, no injection, Sclera: no appreciated abnormality, Lids and lashes: appear normal, bilaterally. 16:48 ENT: External ear(s): are unremarkable, Ear canal(s): are normal, clear, TM's: bulging, is not appreciated, bilaterally, dullness, bilaterally, erythema, is not appreciated, bilaterally, Nose: is normal, Mouth: is normal, Posterior pharynx: is normal, airway is patent, no erythema, no exudate, Voice: is normal. 16:48 Chest/axilla: Inspection: normal, Palpation: is normal, no crepitus, no tenderness. 16:48 Cardiovascular: Rate: normal, Rhythm: regular, Edema: is not appreciated, JVD: is not appreciated. 16:48 Respiratory: the patient does not display signs of respiratory distress, Respirations: normal, no use of accessory muscles, no retractions, no splinting, no tachypnea, labored breathing, is not present, Breath sounds: are clear throughout, no decreased breath sounds, no stridor, no wheezing. 16:48 Abdomen/GI: Inspection: abdomen appears normal, Bowel sounds: active, all quadrants, Palpation: abdomen is soft and non-tender, in all quadrants, rebound tenderness, is not appreciated, voluntary guarding, is not appreciated, involuntary guarding, is not appreciated. 16:48 Back: pain, is absent, ROM is normal. 16:48 Skin: cellulitis, is not appreciated, no rash present. 16:48 Neuro: Orientation: to person, place \T\ time. Mentation: is normal, Motor: moves all fours, weakness noted left upper and left lower extremities unchanged from previous CVA, Sensation: numbness, that is severe, of the left lower leg, pin prick is decreased in the left lower leg, light touch is decreased in the left lower leg. 16:53 Radiologist reports: no acute findings on head CT cp Vital Signs: 16:20 BP 121 / 88; Pulse 92; Resp 18 S; Temp 98.1(O); Pulse Ox 100% on R/A; Weight 79.38 kg aa5 (R); Height 5 ft. 7 in. (170.18 cm) (R); Pain 9/10; 17:00 BP 107 / 75; Pulse 86; Resp 16 S; Pulse Ox 100% on R/A; aa5 17:30 BP 123 / 80; Pulse 88; Resp 18 S; Pulse Ox 99% on R/A; aa5 18:30 BP 131 / 82; Pulse 84; Resp 16 S; Pulse Ox 100% on R/A; aa5 19:52 BP 108 / 79; Pulse 91; Resp 20; Pulse Ox 99% on R/A; tl2 21:29 BP 105 / 84; Pulse 95; Resp 22; Pulse Ox 100% on R/A; Pain 0/10; aa1 22:09 BP 139 / 93; Pulse 88; Resp 16; Temp 98.3; Pulse Ox 100% on R/A; aa1 16:20 Body Mass Index 27.41 (79.38 kg, 170.18 cm) aa5 NIH Stroke Scale Scores: 16:20 NIHSS Score: 5 aa5 16:45 NIHSS Score: 2 cp 17:00 NIHSS Score: 4 aa5 18:30 NIHSS Score: 4 aa5 MDM: 16:43 Patient medically screened. 16:46 ED course: Patient is not a candidate for tpa. Patient reports he received tpa 3 weeks cp ago while in hospital at [facility] for CVA. 18:10 Data reviewed: vital signs, nurses notes, lab test result(s), EKG, radiologic studies, cp CT scan, plain films, I have discussed the patient's presentation/case with the attending Emergency Department Physician;. 18:10 The patient was not given aspirin in the Emergency Department. Administered by EMS. 18:10 Response to treatment: the patient's symptoms have mildly improved after treatment. 18:27 ED course: consult with DR Duckworth, neuro ICU ui designer who does not recommend tpa at this time. Recommends small 500 mL bolus, maintenance fluids and patient be given 324 mg aspirin. 09/28 16:25 Order name: Basic Metabolic Panel [facility] 09/28 16:25 Order name: CBC with Diff [facility] 09/28 16:25 Order name: Protime (+inr); Complete Time: 17:38 [facility] 09/28 16:25 Order name: Ptt, Activated; Complete Time: 17:38 [facility] 09/28 16:26 Order name: LFT's; Complete Time: 17:59 [facility] 09/28 17:59 Interpretation: Normal except: AST 10; ALK 161; GLOB 4.4; A/G 0.9. 09/28 16:26 Order name: Magnesium; Complete Time: 17:59 [facility] 09/28 16:25 Order name: CT Stroke Brain w/o Contrast; Complete Time: 17:38 [facility] 09/28 16:25 Order name: Stroke CXR 1 View; Complete Time: 17:38 [facility] 09/28 16:26 Order name: NT PRO-BNP; Complete Time: 17:38 [facility] 09/28 17:38 Interpretation: Abnormal: NT PRO-BNP 286. 09/28 16:26 Order name: Troponin (emerg Dept Use Only); Complete Time: 17:38 aa5 09/28 18:00 Interpretation: Within normal limits: TROPED < 0.02. cp 09/28 16:26 Order name: Basic Metabolic Panel; Complete Time: 17:59 EDMS 09/28 18:00 Interpretation: Normal except: GLUC 420; GFR 61. cp 09/28 16:26 Order name: CBC with Automated Diff; Complete Time: 17:38 EDMS 09/28 16:25 Order name: EKG; Complete Time: 16:27 aa5 09/28 16:25 Order name: Accucheck; Complete Time: 16:52 aa09/28 16:25 Order name: Cardiac monitoring; Complete Time: 16:53 aa09/28 16:25 Order name: EKG - Nurse/Tech; Complete Time: 16:53 09/28 16:25 Order name: IV Saline Lock; Complete Time: 16:53 09/28 16:25 Order name: Labs collected and sent; Complete Time: 16:53 09/28 16:25 Order name: NPO; Complete Time: 16:53 09/28 16:25 Order name: O2 Per Protocol; Complete Time: 16:53 09/28 16:25 Order name: O2 Sat Monitoring; Complete Time: 16:52 09/28 16:25 Order name: Stroke Swallow Screen; Complete Time: 19:08 aa5 EC:45 Rate is 93 beats/min. Rhythm is regular. QRS interval is normal. QT interval is cp prolonged. T waves are Inverted in leads I, aVL. Interpreted by me. Reviewed by me. Administered Medications: 17:18 CANCELLED (given by EMS SAMPLE SEWER): Aspirin Chewable Tablet 162 mg PO once iw 17:23 Drug: Insulin Regular Human 10 units {Co-Signature: aa5 (Adriana Ricardo RN).} Route: iw IVP; Site: left forearm; 18:16 Follow up: FSBG is decreased 17:23 Drug: NS 0.9% 500 ml Route: IV; Rate: bolus; Site: left forearm; aa5 18:15 Follow up: IV Status: Completed infusion; IV Intake: 500ml 17:23 Drug: fentaNYL (PF) 25 mcg Route: IVP; Site: left forearm; aa5 17:35 Follow up: Response: No adverse reaction; Pain is decreased aa5 17:35 Drug: Zofran 4 mg Route: IVP; Site: left forearm; aa5 17:40 Follow up: Response: No adverse reaction; Nausea is decreased aa5 18:04 CANCELLED (Physician Discretion): morphine 2 mg IVP once iw 18:15 Drug: fentaNYL (PF) 25 mcg Route: IVP; Site: left forearm; aa5 18:40 Follow up: Response: No adverse reaction; Pain is decreased aa5 18:16 Drug: NS 0.9% 1000 ml Route: IV; Rate: 125 ml/hr; Site: left forearm; aa5 22:09 Follow up: IV Status: Infusion continued upon transfer aa1 18:26 CANCELLED (Duplicate Order): Aspirin Chewable Tablet 324 mg PO once; 81 mg tablets x 4 aa5 19:51 Not Given (Hemodynamic Parameters): morphine 4 mg IVP once tl2 19:52 Drug: fentaNYL (PF) 25 mcg Route: IVP; Site: left forearm; tl2 20:52 Follow up: Response: No adverse reaction; Pain is decreased aa1 Point of Care Testing: Blood Glucose: 16:30 Blood Glucose: 409 mg/dL; aa5 18:17 Blood Glucose: 283 mg/dL; aa5 Ranges: Critical Glucose Levels:Adult <50 mg/dl or >400 mg/dl <40 mg/dl or >180 mg/dl Disposition: 19:00 Chart complete. cp 09/29 19:15 Co-signature as Attending Physician, Angel Merlos MD I agree with the assessment and kdr plan of care. Disposition: 09/28/18 18:33 Transfer ordered to [facility]. Diagnosis are Chest pain, unspecified, Numbness of left lower leg. - Reason for transfer: Higher level of care. - Accepting physician is DR Cardona. - Condition is Stable. - Problem is new. - Symptoms have improved. NIH Stroke Scale - NIH Stroke Score Date: 09/28/2018 Time: 16:20 Total Score = 5 1a. Level of Consciousness (LOC) - 0(Alert) 1b. Level of Consciousness (LOC) (Year \T\ Age) - 0(Both) 1c. LOC Commands (Open \T\ Closes Eyes/Pasting Inspector) - 0(Both) 2. Best Gaze (Lateral Gaze Paresis) - 0(Normal) 3. Visual Field Loss - 0(No visual loss) 4. Facial Palsy - 0(Normal) 5a. Left Arm: Motor (10-second hold) - 1(Drift) 5b. Right Arm: Motor (10-second hold) - 0(No drift) 6a. Left Leg: Motor (5-second hold - always test supine) - 3(No effort against gravity) 6b. Right Leg: Motor (5-second hold - always test supine) - 0(No drift) 7. Limb Ataxia (finger/nose \T\ heel/ford - test with eyes open) - 0(Absent) 8. Sensory Loss (pinprick arms/legs/face) - 1(Mild to moderate loss) 9. Best Language: Aphasia (description/naming/reading) - 0(No aphasia) 10. Dysarthria (speech clarity - read or repeat words) - 0(Normal) 11. Extinction and Inattention (visual/tactile/auditory/spatial/personal) - 0(No abnormality) Initials: aa5 NIH Stroke Scale - NIH Stroke Score Date: 09/28/2018 Time: 16:45 Total Score = 2 1a. Level of Consciousness (LOC) - 0(Alert) 1b. Level of Consciousness (LOC) (Year \T\ Age) - 0(Both) 1c. LOC Commands (Open \T\ Closes Eyes/Pasting Inspector) - 0(Both) 2. Best Gaze (Lateral Gaze Paresis) - 0(Normal) 3. Visual Field Loss - 0(No visual loss) 4. Facial Palsy - 0(Normal) 5a. Left Arm: Motor (10-second hold) - 0(No drift) 5b. Right Arm: Motor (10-second hold) - 0(No drift) 6a. Left Leg: Motor (5-second hold - always test supine) - 0(No drift) 6b. Right Leg: Motor (5-second hold - always test supine) - 0(No drift) 7. Limb Ataxia (finger/nose \T\ heel/ford - test with eyes open) - 0(Absent) 8. Sensory Loss (pinprick arms/legs/face) - 2(Severe to total loss) 9. Best Language: Aphasia (description/naming/reading) - 0(No aphasia) 10. Dysarthria (speech clarity - read or repeat words) - 0(Normal) 11. Extinction and Inattention (visual/tactile/auditory/spatial/personal) - 0(No abnormality) Initials: cp NIH Stroke Scale - NIH Stroke Score Date: 09/28/2018 Time: 17:00 Total Score = 4 1a. Level of Consciousness (LOC) - 0(Alert) 1b. Level of Consciousness (LOC) (Year \T\ Age) - 0(Both) 1c. LOC Commands (Open \T\ Closes Eyes/Pasting Inspector) - 0(Both) 2. Best Gaze (Lateral Gaze Paresis) - 0(Normal) 3. Visual Field Loss - 0(No visual loss) 4. Facial Palsy - 0(Normal) 5a. Left Arm: Motor (10-second hold) - 1(Drift) 5b. Right Arm: Motor (10-second hold) - 0(No drift) 6a. Left Leg: Motor (5-second hold - always test supine) - 2(Drift, some effort against gravity) 6b. Right Leg: Motor (5-second hold - always test supine) - 0(No drift) 7. Limb Ataxia (finger/nose \T\ heel/ford - test with eyes open) - 0(Absent) 8. Sensory Loss (pinprick arms/legs/face) - 1(Mild to moderate loss) 9. Best Language: Aphasia (description/naming/reading) - 0(No aphasia) 10. Dysarthria (speech clarity - read or repeat words) - 0(Normal) 11. Extinction and Inattention (visual/tactile/auditory/spatial/personal) - 0(No abnormality) Initials: aa5 NIH Stroke Scale - NIH Stroke Score Date: 09/28/2018 Time: 18:30 Total Score = 4 1a. Level of Consciousness (LOC) - 0(Alert) 1b. Level of Consciousness (LOC) (Year \T\ Age) - 0(Both) 1c. LOC Commands (Open \T\ Closes Eyes/Pasting Inspector) - 0(Both) 2. Best Gaze (Lateral Gaze Paresis) - 0(Normal) 3. Visual Field Loss - 0(No visual loss) 4. Facial Palsy - 0(Normal) 5a. Left Arm: Motor (10-second hold) - 1(Drift) 5b. Right Arm: Motor (10-second hold) - 0(No drift) 6a. Left Leg: Motor (5-second hold - always test supine) - 2(Drift, some effort against gravity) 6b. Right Leg: Motor (5-second hold - always test supine) - 0(No drift) 7. Limb Ataxia (finger/nose \T\ heel/ford - test with eyes open) - 0(Absent) 8. Sensory Loss (pinprick arms/legs/face) - 1(Mild to moderate loss) 9. Best Language: Aphasia (description/naming/reading) - 0(No aphasia) 10. Dysarthria (speech clarity - read or repeat words) - 0(Normal) 11. Extinction and Inattention (visual/tactile/auditory/spatial/personal) - 0(No abnormality) Initials: aa5 Signatures: Dispatcher [employer] EDMS Angel Merlos MD MD kdr Polly Leal RN RN iw Adriana Ricardo RN RN aa5 Mustapha Joe PA PA cp Judi Conner, RN RN tl2 Glendy Singh RN aa1 Adriana Ricardo RN aa5 Corrections: (The following items were deleted from the chart) 09/28 17:18 16:57 Aspirin Chewable Tablet 162 mg PO once ordered. cp 18:04 17:59 morphine 2 mg IVP once ordered. cp 18:04 18:04 morphine 2 mg IVP once ordered. [facility] 18:26 18:25 Aspirin Chewable Tablet 324 mg PO once; 81 mg tablets x 4 ordered. cp aa5 22:27 18:33 09/28/2018 18:33 Transfer ordered to [facility]. Diagnosis is Chest tl2 pain, unspecified; Numbness of left lower leg. Reason for transfer: Higher level of care. Accepting physician is DR Cardona. Condition is Stable. Problem is new. Symptoms have improved. cp
--- NOTE | 2018-09-28 18:34 | ER ---
Nurse's Notes [facility] Name: Ernie Rooney Age: 58 yrs Sex: Male : 1960 Arrival Date: 09/28/2018 Time: 16:22 Bed 2 Private MD: Diagnosis: Chest pain, unspecified;Numbness of left lower leg Presentation: 09/28 16:18 Presenting complaint: Patient states: mid-sternal chest pain radiating to left arm. Pt aa5 states "they told me about 2 months ago that I need more heart stents but I've been sick so they haven't been able to do surgery". Transition of care: patient was not received from another setting of care. Onset of symptoms was September 28, 2018. Risk Assessment: Do you want to hurt yourself or someone else? Patient reports no desire to harm self or others. Initial Sepsis Screen: Does the patient meet any 2 criteria? No. Patient's initial sepsis screen is negative. Does the patient have a suspected source of infection? No. Patient's initial sepsis screen is negative. Care prior to arrival: Medication(s) given: ASA, 81 mg, x 4, Glucose check: 368. 16:18 Method Of Arrival: EMS: [facility] aa5 16:18 Acuity: TONE 2 aa5 16:20 Note Pt now complaining of numbness to left side of face, left arm, and left leg that aa5 began now. Pt reports hx of left-sided weakness from previous CVA. 16:20 An acute neurological deficit is present. The patients blood glucose was checked prior aa5 to arriving to the hospital and was found to be hyperglycemic. Triage Assessment: 16:20 The onset of the patients symptoms was September 28, 2018 at 16:20. aa5 Stroke Activation: Symptom onset < 3 hours Physician: Stroke Attending; Name: ; Notified At: ; Arrived At: Physician: Chief Stroke Resident; Name: ; Notified At: ; Arrived At: Physician: Stroke Resident; Name: ; Notified At: ; Arrived At: Physician: ED Attending; Name: ; Notified At: ; Arrived At: Physician: ED Resident; Name: ; Notified At: ; Arrived At: Historical: - Allergies: 16:30 NKA; aa5 - Home Meds: 16:30 clopidogrel 75 mg Oral tab 1 tab once daily [Active]; doxazosin 8 mg Oral tab 1 tab aa5 once daily [Active]; fenofibrate 200 mg Oral once daily [Active]; gabapentin 800 mg Oral tab 1 tab twice a day [Active]; glipizide 10 mg Oral tab 2 tabs 2 times per day [Active]; levothyroxine 50 mcg tab [Active]; lisinopril 2.5 mg Oral tab [Active]; metformin 1,000 mg Oral tab 1 tab 2 times per day [Active]; metoprolol tartrate 25 mg Oral tab [Active]; omeprazole 20 mg Oral cpDR 1 cap once daily [Active]; Protonix 40 mg Oral TbEC 1 tab once daily [Active]; simvastatin 80 mg Oral tab daily [Active]; tamsulosin 0.4 mg Oral cp24 1 cap once daily [Active]; tizanidine 4 mg Oral cap 1 cap 3 times per day [Active]; tramadol 50 mg Oral tab 1 tab three times a day [Active]; venlafaxine 75 mg Oral tab 1 tab 2 times per day [Active]; - PMHx: 16:30 Back pain; Depression; Diabetes - NIDDM; GERD; High Cholesterol; Hyperlipidemia; aa5 Hypertension; Hypothyroidism; Myocardial infarction; - PSHx: 16:30 CABG; Pacemaker; Cholecystectomy; multiple back surgeries; left arm surgery; aa5 - Immunization history:: Adult Immunizations up to date. - Social history:: Smoking status: Patient/guardian denies using tobacco. - Ebola Screening: : No symptoms or risks identified at this time. Screenin:00 Abuse screen: Denies threats or abuse. Nutritional screening: No deficits noted. aa5 Tuberculosis screening: No symptoms or risk factors identified. Fall Risk Secondary diagnosis (15 points) CVA, IV access (20 points). Total Cummings Fall Scale indicates Low Risk Score (25-44 pts). Fall prevention measures have been instituted. Side Rails Up X 2 Placed close to Nursing Station. Assessment: 16:18 General: Appears uncomfortable, Behavior is calm, cooperative. Pain: Complains of pain aa5 in mid-sternal area Pain radiates to left arm Pain currently is 9 out of 10 on a pain scale. Quality of pain is described as sharp, shooting, Pain began this morning Is continuous. Neuro: Level of Consciousness is awake, alert, obeys commands, Oriented to person, place, time, situation. Cardiovascular: Heart tones S1 S2 present Rhythm is sinus rhythm. Respiratory: Airway is patent Respiratory effort is even, unlabored, Respiratory pattern is regular, symmetrical, Breath sounds are clear bilaterally. Denies shortness of breath. GI: Abdomen is flat, Bowel sounds present X 4 quads. Abd is soft and non tender X 4 quads. Reports nausea, Patient currently denies vomiting. : No signs and/or symptoms were reported regarding the genitourinary system. EENT: No signs and/or symptoms were reported regarding the EENT system. Derm: Skin is pink, warm \\T\\ dry. Musculoskeletal: Range of motion: intact in all extremities. 16:20 VAN Scoring: Arm Drift: Minor drift Visual Disturbance: No visual disturbance noted. aa5 Aphasia: No aphasia noted. Neglect: No neglect noted. 16:20 Neuro: Level of Consciousness is awake, alert, obeys commands, Oriented to person, aa5 place, time, situation, Bench Lay Out Technician are weak on left Weakness in left arm(s) leg(s) Speech is normal, Facial symmetry appears normal, Pupils are PERRLA, Reports increased left-sided weakness that began now. Pt also c/o numbness to left side of face, left arm, and left leg. . 16:22 Reassessment: PA at bedside . aa5 16:25 Reassessment: Pt reports he received T-PA for CVA 3 weeks ago, pt states "I got it in aa5 [place]" . 16:30 Reassessment: Pt to CT accompanied by me via stretcher. aa5 17:00 Reassessment: Patient is alert, oriented x 3, equal unlabored respirations, skin aa5 warm/dry/pink. 17:35 Reassessment: Patient is alert, oriented x 3, equal unlabored respirations, skin aa5 warm/dry/pink. Patient states feeling better. Pain: Pain currently is 8 out of 10 on a pain scale. 18:00 T-PA (Activase) Screening: Contraindications: Other: Pt received T-PA approximately 3 aa5 weeks ago, PA spoke to Neurologist at [facility] and T-PA was not recommended at this time. 18:30 Patient has been NPO before screening. The patient is alert, and able to follow aa5 commands. The patient does not exhibit slurred or garbled speech. The patient is not exhibiting difficulty speaking. The patient does not exhibit difficulty understanding words. The patient is able to swallow own secretions with no drooling or need for suction. Patient tolerated one teaspoon of water. No drooling, immediate coughing, gurgling, or clearing of the throat was noted. The patient did not tolerate 90mL of water. Drooling, immediate coughing, gurgling, or clearing of the throat was noted. Bedside swallow screening discontinued. Patient kept NPO until cleared by Speech Therapy or Physician. The patient failed the bedside swallow screening. The patient will be kept NPO until cleared by Speech Therapy or Physician. Provider notified of bedside swallow screening results: Mustapha WHITESIDE. 18:30 Reassessment: Pt reports dysphagia from previous CVA . aa5 18:48 Reassessment: Patient is alert, oriented x 3, equal unlabored respirations, skin aa5 warm/dry/pink. Patient states feeling better. Pain: Pain currently is 7 out of 10 on a pain scale. 19:20 General: Appears in no apparent distress. uncomfortable, Behavior is calm, cooperative, tl2 appropriate for age. Pain: Complains of pain in mid-sternal area Pain radiates to left arm Pain currently is 7 out of 10 on a pain scale. Neuro: Level of Consciousness is awake, alert, obeys commands, Oriented to person, place, time, situation, Speech is normal, Facial symmetry appears normal, Reports weakness in left side. Cardiovascular: Heart tones S1 S2 present Rhythm is sinus rhythm Chest pain is described as diffuse, quality is sharp. Respiratory: Airway is patent Respiratory effort is even, unlabored, Respiratory pattern is regular, symmetrical. GI: Reports nausea. : No signs and/or symptoms were reported regarding the genitourinary system. Derm: Skin is pink, warm \\T\\ dry. 19:40 Reassessment: Report called to [facility]. Pt c/o pain at this time, PA notified, tl2 new order see JUL. 20:30 Reassessment: Patient appears in no apparent distress at this time. Patient and/or tl2 family updated on plan of care and expected duration. Pain level reassessed. Patient is alert, oriented x 3, equal unlabored respirations, skin warm/dry/pink. 21:29 Reassessment: Patient appears in no apparent distress at this time. Patient and/or aa1 family updated on plan of care and expected duration. Pain level reassessed. Patient is alert, oriented x 3, equal unlabored respirations, skin warm/dry/pink. Pt resting quietly. Awaiting EMS for transfer. 22:09 Reassessment: Patient appears in no apparent distress at this time. Patient is alert, aa1 oriented x 3, equal unlabored respirations, skin warm/dry/pink. [facility] present for transfer to [facility]. Vital Signs: 16:20 BP 121 / 88; Pulse 92; Resp 18 S; Temp 98.1(O); Pulse Ox 100% on R/A; Weight 79.38 kg aa5 (R); Height 5 ft. 7 in. (170.18 cm) (R); Pain 9/10; 17:00 BP 107 / 75; Pulse 86; Resp 16 S; Pulse Ox 100% on R/A; aa5 17:30 BP 123 / 80; Pulse 88; Resp 18 S; Pulse Ox 99% on R/A; aa5 18:30 BP 131 / 82; Pulse 84; Resp 16 S; Pulse Ox 100% on R/A; aa5 19:52 BP 108 / 79; Pulse 91; Resp 20; Pulse Ox 99% on R/A; tl2 21:29 BP 105 / 84; Pulse 95; Resp 22; Pulse Ox 100% on R/A; Pain 0/10; aa1 22:09 BP 139 / 93; Pulse 88; Resp 16; Temp 98.3; Pulse Ox 100% on R/A; aa1 16:20 Body Mass Index 27.41 (79.38 kg, 170.18 cm) aa5 NIH Stroke Scale Scores: 16:20 NIHSS Score: 5 aa5 16:45 NIHSS Score: 2 cp 17:00 NIHSS Score: 4 aa5 18:30 NIHSS Score: 4 aa5 ED Course: 16:18 Patient arrived in ED. aa5 16:18 Arm band placed on Patient placed in an exam room, on a stretcher. aa5 16:18 Patient has correct armband on for positive identification. Placed in gown. Bed in low aa5 position. Call light in reach. Side rails up X2. 16:18 conveyor monitor on. Pulse ox on. NIBP on. aa5 16:22 EKG done, by audit tech. dt2 16:25 Adriana Ricardo, RN is Primary Nurse. aa5 16:30 Inserted saline lock: 22 gauge in left forearm, using aseptic technique. ,using aseptic aa5 technique. Inserted by Tato Salazar lab support service tech. 16:31 Initial lab(s) drawn, by ED staff, sent to lab. aa5 16:32 Mustapha Joe PA is PHCP. cp 16:32 Angel Merlos MD is Attending Physician. cp 16:36 CT Stroke Brain w/o Contrast In Process Unspecified. EDMS 16:42 Triage completed. aa5 16:45 Stroke CXR 1 View In Process Unspecified. EDMS 17:27 initiated a transfer with Soha at the [facility] transfer center. eb 17:[address] Cardona the neurologist coal gasification technician for [facility] with Tatyana WHITESIDE for patient transfer eb consultation. 18:[address] Fleming the neurointensivist coal gasification technician for [facility] with Tatyana WHITESIDE for eb patient transfer consultation. 18:47 No provider procedures requiring assistance completed. Patient maintains SpO2 aa5 saturation greater than 95% on room air. 19:00 Report given to Judi RN and SHEBA Pike. aa5 20:30 Patient transferred, IV remains in place. tl2 Administered Medications: 17:18 CANCELLED (given by EMS BLACKJACK DEALER): Aspirin Chewable Tablet 162 mg PO once iw 17:23 Drug: Insulin Regular Human 10 units {Co-Signature: aa5 (Adriana Ricardo RN).} Route: iw IVP; Site: left forearm; 18:16 Follow up: FSBG is decreased aa5 17:23 Drug: NS 0.9% 500 ml Route: IV; Rate: bolus; Site: left forearm; aa5 18:15 Follow up: IV Status: Completed infusion; IV Intake: 500ml aa5 17:23 Drug: fentaNYL (PF) 25 mcg Route: IVP; Site: left forearm; aa5 17:35 Follow up: Response: No adverse reaction; Pain is decreased aa5 17:35 Drug: Zofran 4 mg Route: IVP; Site: left forearm; aa5 17:40 Follow up: Response: No adverse reaction; Nausea is decreased aa5 18:04 CANCELLED (Physician Discretion): morphine 2 mg IVP once iw 18:15 Drug: fentaNYL (PF) 25 mcg Route: IVP; Site: left forearm; aa5 18:40 Follow up: Response: No adverse reaction; Pain is decreased aa5 18:16 Drug: NS 0.9% 1000 ml Route: IV; Rate: 125 ml/hr; Site: left forearm; aa5 22:09 Follow up: IV Status: Infusion continued upon transfer aa1 18:26 CANCELLED (Duplicate Order): Aspirin Chewable Tablet 324 mg PO once; 81 mg tablets x 4 aa5 19:51 Not Given (Hemodynamic Parameters): morphine 4 mg IVP once tl2 19:52 Drug: fentaNYL (PF) 25 mcg Route: IVP; Site: left forearm; tl2 20:52 Follow up: Response: No adverse reaction; Pain is decreased aa1 Point of Care Testing: Blood Glucose: 16:30 Blood Glucose: 409 mg/dL; aa5 18:17 Blood Glucose: 283 mg/dL; aa5 Ranges: Intake: 18:15 IV: 500ml; Total: 500ml. aa5 Outcome: 18:33 ER care complete, transfer ordered by MD. carter 20:30 Transferred by ground EMS to [facility], Transfer form tl2 completed. 20:30 Condition: stable 20:30 Discharge instructions given to patient, Instructed on the need for transfer. 22:27 Patient left the ED. tl2 NIH Stroke Scale - NIH Stroke Score Date: 09/28/2018 Time: 16:20 Total Score = 5 1a. Level of Consciousness (LOC) - 0(Alert) 1b. Level of Consciousness (LOC) (Year \\T\\ Age) - 0(Both) 1c. LOC Commands (Open \\T\\ Closes Eyes/Senior Advisor) - 0(Both) 2. Best Gaze (Lateral Gaze Paresis) - 0(Normal) 3. Visual Field Loss - 0(No visual loss) 4. Facial Palsy - 0(Normal) 5a. Left Arm: Motor (10-second hold) - 1(Drift) 5b. Right Arm: Motor (10-second hold) - 0(No drift) 6a. Left Leg: Motor (5-second hold - always test supine) - 3(No effort against gravity) 6b. Right Leg: Motor (5-second hold - always test supine) - 0(No drift) 7. Limb Ataxia (finger/nose \\T\\ heel/ford - test with eyes open) - 0(Absent) 8. Sensory Loss (pinprick arms/legs/face) - 1(Mild to moderate loss) 9. Best Language: Aphasia (description/naming/reading) - 0(No aphasia) 10. Dysarthria (speech clarity - read or repeat words) - 0(Normal) 11. Extinction and Inattention (visual/tactile/auditory/spatial/personal) - 0(No abnormality) Initials: aa5 NIH Stroke Scale - NIH Stroke Score Date: 09/28/2018 Time: 16:45 Total Score = 2 1a. Level of Consciousness (LOC) - 0(Alert) 1b. Level of Consciousness (LOC) (Year \\T\\ Age) - 0(Both) 1c. LOC Commands (Open \\T\\ Closes Eyes/Senior Advisor) - 0(Both) 2. Best Gaze (Lateral Gaze Paresis) - 0(Normal) 3. Visual Field Loss - 0(No visual loss) 4. Facial Palsy - 0(Normal) 5a. Left Arm: Motor (10-second hold) - 0(No drift) 5b. Right Arm: Motor (10-second hold) - 0(No drift) 6a. Left Leg: Motor (5-second hold - always test supine) - 0(No drift) 6b. Right Leg: Motor (5-second hold - always test supine) - 0(No drift) 7. Limb Ataxia (finger/nose \\T\\ heel/ford - test with eyes open) - 0(Absent) 8. Sensory Loss (pinprick arms/legs/face) - 2(Severe to total loss) 9. Best Language: Aphasia (description/naming/reading) - 0(No aphasia) 10. Dysarthria (speech clarity - read or repeat words) - 0(Normal) 11. Extinction and Inattention (visual/tactile/auditory/spatial/personal) - 0(No abnormality) Initials: cp NIH Stroke Scale - NIH Stroke Score Date: 09/28/2018 Time: 17:00 Total Score = 4 1a. Level of Consciousness (LOC) - 0(Alert) 1b. Level of Consciousness (LOC) (Year \\T\\ Age) - 0(Both) 1c. LOC Commands (Open \\T\\ Closes Eyes/Senior Advisor) - 0(Both) 2. Best Gaze (Lateral Gaze Paresis) - 0(Normal) 3. Visual Field Loss - 0(No visual loss) 4. Facial Palsy - 0(Normal) 5a. Left Arm: Motor (10-second hold) - 1(Drift) 5b. Right Arm: Motor (10-second hold) - 0(No drift) 6a. Left Leg: Motor (5-second hold - always test supine) - 2(Drift, some effort against gravity) 6b. Right Leg: Motor (5-second hold - always test supine) - 0(No drift) 7. Limb Ataxia (finger/nose \\T\\ heel/ford - test with eyes open) - 0(Absent) 8. Sensory Loss (pinprick arms/legs/face) - 1(Mild to moderate loss) 9. Best Language: Aphasia (description/naming/reading) - 0(No aphasia) 10. Dysarthria (speech clarity - read or repeat words) - 0(Normal) 11. Extinction and Inattention (visual/tactile/auditory/spatial/personal) - 0(No abnormality) Initials: aa5 NIH Stroke Scale - NIH Stroke Score Date: 09/28/2018 Time: 18:30 Total Score = 4 1a. Level of Consciousness (LOC) - 0(Alert) 1b. Level of Consciousness (LOC) (Year \\T\\ Age) - 0(Both) 1c. LOC Commands (Open \\T\\ Closes Eyes/Senior Advisor) - 0(Both) 2. Best Gaze (Lateral Gaze Paresis) - 0(Normal) 3. Visual Field Loss - 0(No visual loss) 4. Facial Palsy - 0(Normal) 5a. Left Arm: Motor (10-second hold) - 1(Drift) 5b. Right Arm: Motor (10-second hold) - 0(No drift) 6a. Left Leg: Motor (5-second hold - always test supine) - 2(Drift, some effort against gravity) 6b. Right Leg: Motor (5-second hold - always test supine) - 0(No drift) 7. Limb Ataxia (finger/nose \\T\\ heel/ford - test with eyes open) - 0(Absent) 8. Sensory Loss (pinprick arms/legs/face) - 1(Mild to moderate loss) 9. Best Language: Aphasia (description/naming/reading) - 0(No aphasia) 10. Dysarthria (speech clarity - read or repeat words) - 0(Normal) 11. Extinction and Inattention (visual/tactile/auditory/spatial/personal) - 0(No abnormality) Initials: aa5 Signatures: Dispatcher [employer] EDMS Glendy Singh RN RN aa1 Polly Leal RN RN iw Calderon, Audri, RN RN aa5 Mustapha Joe PA PA cp Knox, Taylor, RN RN tl2 Cristine Kaplan Danielle dt2 Adriana Ricardo RN aa5 Corrections: (The following items were deleted from the chart) 16:23 16:22 Patient arrived in ED. aa5 aa5 16:44 16:18 Care prior to arrival: None. aa5 aa5
[2018-09-28] MEDS ORDERED: MORPHINE 4 MG/ML SYR ONE (19:44)
[2018-09-28 22:56] VITALS: O2SAT 100
[2018-09-28 22:57] VITALS: BP 139/93; TEMP 98.3
--- NOTE | 2018-09-29 09:22 | EKG ---
Test Date: 2018-09-28 Test Time: 16:22:54 Weir Fisherman: MAYO MEASUREMENT RESULTS: Intervals: Rate: 93 NC: QRSD: 84 QT: 500 QTc: 621 [place]: P: NC: QRS: 11 T: 84 INTERPRETIVE STATEMENTS: Accelerated Junctional rhythm Lateral infarct, age undetermined Inferior infarct, age undetermined Prolonged QT Abnormal ECG Compared to ECG 09/11/2018 10:00:53 Accelerated junctional rhythm now present Prolonged QT interval now present Sinus rhythm no longer present Sinus arrhythmia no longer present First degree AV block no longer present Myocardial infarct finding still present Electronically Signed On 09-29-18 09:21:01 CDT by Luca Royal
== END 2018-09-28 22:27 | disposition short-term general hospital (02) ==
LOC: ER 16:16
DX: R07.9 Chest pain, unspecified (principal); R20.0 Anesthesia of skin; F32.9 Major depressive disorder, single episode, unspecified; E11.9 Type 2 diabetes mellitus without complications; K21.9 Gastro-esophageal reflux disease without esophagitis; E78.00 Pure hypercholesterolemia, unspecified; E78.5 Hyperlipidemia, unspecified; I10 Essential (primary) hypertension; E03.9 Hypothyroidism, unspecified; I25.2 Old myocardial infarction
CPT/HCPCS: 96361; 93005; 85025; 80048; 36415; 83735; 85610; 82962 ×2; 80076; 85730; 84484; 83880; 70450; 71045; 96375; 96374; 99285; J3010 ×2; J7030; J2405

== ENCOUNTER 2018-10-02 11:51 | Inpatient (IN) | payer OTHER ==
--- NOTE | 2018-10-02 13:46 | R.PREADM ---
SCREENING DATE AND TIME 10/02/2018 11:53 (CDT) ANTICIPATED REHAB ADMISSION DATE 10/04/2018 REFERRING FACILITY [facility] REFERRAL DATE AND TIME 10/02/2018 11:54 (CDT) ACUTE ADMIT DATE 09/28/2018 Previous Rehabilitation(s): No. 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 Luis Manuel Corley M.D. MR# [id number] [id number] NAME ERNIE ROONEY ADDRESS [address] [place]IP [address] DATE OF 1960 AGE 58 SSN# [id number] GENDER male MARITAL STATUS RACE ADMIT FROM 02 - [facility] PRE-HOSPITAL LIVING SETTING 01 - Home (private home/apt. board/care, assisted living, long term, transitional living) HOME TYPE AND DETAILS Type of home: apartment # of levels in the residence: 1 # of steps to enter the residence: 14 # of steps within the residence: 0 PRE-HOSPITAL LIVING WITH Alone FAMILY SUPPORT Yes PRIMARY FAMILY CONTACT NAME DAVION NANCE PRIMARY FAMILY CONTACT PHONE PHONE PRIMARY FAMILY CONTACT ON ADM.? no IS PRIMARY FAMILY CONTACT AUTH. REP.? no 1ST EMERGENCY CONTACT DAVION NANCE 1ST CONTACT PHONE PHONE 1ST CONTACT ON ADM. no IS 1ST CONTACT AUTH. REP.? no PHONE 2ND CONTACT ON ADM.? no PATIENT EMPLOYMENT STATUS Disabled PAYOR INFORMATION: 1ST PAYOR NAME [employer] [place] PAYOR INJURY/ILLNESS DUE TO ACCIDENT? No ANOTHER LIBERTARIAN RESPONSIBLE? No PRIMARY REHAB/ACUTE DIAGNOSIS: Right CVA ONSET DATE 09/28/2018 REHAB IMPAIRMENT CATEGORY (JESÚS): 01 Stroke (STR) MEETS 60% rule AFFECTED EXTREMITIES: LLE, and LUE PRIMARY DIAGNOSIS-RELATED SURGERIES: No surgeries related to the primary diagnosis were performed. COMORBID REHAB/ACUTE DIAGNOSES: - Non-Tiered Type 2 diabetes mellitus with diabetic neuropathy, unspecified (E11.40) - N/A BPH CAD CVA HLD HTN HYPOTHYROID KIDNEY STONES MAJOR DEPRESSIVE DISORDER INTERVENTIONS: - CAD 02 sats Activity management Medications VS - Hypothyroid Medications RISK FOR COMPLICATIONS: - CAD CHF Cardiac Arrest CA Pain - Hypothyroid Depression Weight gain SUMMARY OF ACUTE HOSPITALIZATION: Pt. is a 58 yo Right-handed male. On 09/28/2018 Pt. presented to [facility] with sudden onset of left-side weakness. On 09/28/2018 he was admitted to [facility] with diagnosis Right CVA. His impairment category is Stroke 01 - Left Body (Right Brain) (01.1). Pre-morbidly, Pt. was independent/mod-I in Self-Care, Sphincter Control, Transfers Control, Locomotio n, Communication, and Social Cognition; and he had good Sphincter Control. Currently, he has deficits of Self-Care, Transfers Control, Locomotion, Endurance, Balance, and Safet y Awareness. Pt. is now referred to [facility] for acute in-patient rehabilitation in order to maximize patient's functional independence in activities of daily living, strength, ROM, and mobi lity. Patient has realistic goal of being discharged at assistance level 6-Reddy to reside at Home with Fam tomy/Relatives. Ernie Rooney is a 58 year old male that lives alone in an apartment garage with 14 steps to enter. Patient can do household ambulation modified independent with BADLs. On 09/28/2018, he had worsening left sided weakness, numbness and chest pain. Reports chest pain is 9/10 with SOB, radiating to left arm and was admitted to [facility] and treated. He is now medically stab le but in need of 24-hour nursing, doctor supervision and oversite while receiving The patient is reasonably expected to participate in 3hours of therapy a day/15 hours per week and receive care with an intensive interdisciplinary approach. PAST MEDICAL HISTORY BPH CAD CVA HLD HTN HYPOTHYROID KIDNEY STONES MAJOR DEPRESSIVE DISORDER Type 2 diabetes mellitus with diabetic neuropathy, unspecified (E11.40) PAST SURGICAL HISTORY: CABG BACK SURGERY Cholecystectomy PACEMAKER PLACEMENT REMOVAL OF KIDNEY STONE MULTIPLE PCI MEDICATION ALLERGIES: No Known Drug Allergies (NKDA) ENVIRONMENTAL ALLERGIES: None Known - Substance Allergies None Known - Other Allergies None Known CODE STATUS: Full code WEIGHT/HEIGHT/BMI: WEIGHT 185 lbs HEIGHT 5' 7" BMI 29 DIET: - Diet Type Regular - Diet - Solid Texture Regular - Diet - Liquid Texture Regular - Tube Feed N/A REVIEW OF SYSTEMS: - Gen Alert and awake Lying in bed No apparent distress Oriented to: person, time, and place - Vital Signs Temperature: 98.3 F SBP/DBP: 155/82 Pulse: 87 Resp: 18 Vital signs stable, afebrile - CVS RRR VITAL SIGNS Temperature: 98.3 F SBP/DBP: 155/82 Pulse: 87 Resp: 18 Vital signs stable, afebrile CURRENT SPHINCTER CONTROL: Pre-hospital bladder status: continent # of bladder accidents in the last 7 days prior to screenin Pre-hospital bowel status: continent # of bowel accidents in the last 7 days prior to screenin Last Bowel Movement Date: DETAILED CURRENT FUNCTIONAL STATUS: - Bladder accident frequency: Ind - No accidents in the past 7 days - Bowel accident frequency: Ind - No accidents in the past 7 days - Walking score based on distance walked: 1(<=50ft) - Wheelchair score based on distance traveled: 0(N/A) FUNCTIONAL STATUS: - Self-Care A. Eating Ind sup B. Grooming Ind sup C. Bathing Ind sup D. Dressing - Upper Ind sup E. Dressing - Lower Ind CGA F. Toileting Ind sup - Sphincter Control G: Bladder control Ind Ind H: Bowel control Ind Ind - Transfers Control I. Bed/Chair/Wheelchair Ind Dat J. Toilet Ind Dat K. Tub/Shower Ind ADNO - Locomotion L. Walk/Wheelchair (C) Ind Dat L. Walk/Wheelchair (W) Ind Dat M. Stairs Ind ADNO - Communication N. Comprehension (B) Ind Ind O. Expression (B) Ind Ind - Social Cognition P. Social Interaction Ind Ind Q. Problem Solving Ind Ind R. Memory Ind Ind - Endurance Fair - Balance Fair - Safety Awareness Fair CURRENT FUNC. DEFICITS: Self-Care, Transfers Control, Locomotion, Endurance, Balance, and Safety Awareness THERAPY NOTES FROM ACUTE CARE: Attached. SPECIAL NEEDS: - Safety Concerns Skin breakdown precautions needed due to skin breakdown risk PATIENT NEEDS ACTIVE AND ONGOING THERAPEUTIC INTERVENTION OF MULTIPLE THERAPY DISCIPLINES, INCLUDING: - Occupational Therapy Evaluate and Treat. Visual Perceptual Training. Cognitive Retraining. - Speech Therapy Cognitive Training. Memory Strategies. Expressive Language Skills. Speech Intelligibility Training. R eceptive Language Skills. - Physical Therapy Evaluate and Treat. PATIENT NEEDS CLOSE MEDICAL SUPERVISION BY A REHABILITATION PHYSICIAN FOR: Bowel and Bladder Management Coordination of Treatment Team Diabetes Management Medical and Co-Morbidity Management DVT Management Pain Management PATIENT REQUIRES 24X7 REHAB NURSING FOR MEDICAL AND FUNCTIONAL MGT. OF THE FOLLOWING DEFICITS: ADL's Ambulation Bowel and Bladder Management Communication Disease Management Medication Management Patient/Family Education Providing Safe Environment Transfers DVT Management Pain Management PATIENT REQUIRES INTENSIVE, COORDINATED INTERDISCIPLINARY APPROACH TO REHAB: Arranging Home Equipment/Services Discharge Planning Family Intervention/Training Sweetbread Trimmer/Case Management PATIENT REHAB POTENTIAL: Expected level of measurable improvement will be of a practical value to patient's functional capacit y or adaptations to impairments Has a viable Discharge Plan Medically appropriate; condition is sufficiently stable to participate in intensive rehab program Patient is able and expected to receive 3 hours of individualized therapy daily on at least 5 of ever y 7 days Patient's prognosis for significant practical improvement within a reasonable period of time appears Good DISCHARGE PLAN: - Estimated Length of Stay (days) 17. - Consensus on plan Discharge plan has been discussed with primary caregiver. Patient/Family is in agreement with the elmo n. Primary caregiver is in agreement with the plan. - Patient/Family Goals Return home with assistance. - Planned Living Setting Upon Discharge Home, to live with Family/Relatives. Transitional Living. RECOMMENDED CARE LEVEL: IRF RECOMMENDATION DETAILS: Recommended Admission to Comprehensive Rehabilitation Program to Increase Functional [place] SCREENER'S COMPLETENESS CONFIRMATION: - Screening Confirmation The patient data collection on this preadmission screening form is finished PHYSICIANS REVIEW AND ADMISSION DETERMINATION Admit - Based on my review of the Pre-Admission Screening results, in my medical judgment and experie nce, I concur with the findings and recommend admission to [facility], as this patient requires an IRF level of care. SIGNATURE PANEL: Clinical Liaison - [electronically] signed by Giorgio Sepulveda on 10/02/2018 at 13:10 (CDT) Physician Reviewer - [electronically] signed by Dr. Luis Manuel Corley M.D. on 10/02/2018 at 13:45 (CDT )
--- OUTSIDE RECORDS SUMMARY | 2018-10-02 19:01 | XMS REPORT ---
:1960 [facility] Address [address] [place] [address] Care Team Providers Name Role Phone TERA [...] Results Atomic Results Result Comments CTA BRAIN [facility] [address] [place], [place] [address] Patient Name: FAITH VANCE MR #: [id number] : 1960 Age/Sex: 57/M Req #: [id number] Adm Physician: TERA COX MD Ordered by: TERA COX MD Report #: [id number] Location: [facility] Room/Bed: [place] [address] Procedure: [id number] CT/CTA BRAIN Exam Date: 10/24/17 Exam Time: [...] PM Dictated By: ANA MARIA ARTEAGA MD [id number] Transcribed By: ANDREE on 10/24/17 1632 COPY TO: TERA COX MD CT BRAIN WO [place] [address] Patient Name: FAITH VANCE MR #: [id number] : 1960 Age/Sex: 57/M Req #: [id number] Adm Physician: Ordered by: ARLETH WAHL MD Report #: [id number] Location: Room/Bed: Procedure: [id number] CT/CT BRAIN WO Exam Date: 10/23/17 Exam [...] PM Dictated By: ANA MARIA ARTEAGA MD [id number] Transcribed By: ANDREE on 10/23/170 COPY TO: ARLETH WAHL MD CTA CHEST [place] [address] Patient Name: FAITH VANCE MR #: [id number] : 1960 Age/Sex: 57/M Req #: [id number] Adm Physician: Ordered by: ARLETH WAHL MD Report #: [id number] Location: ER Room/Bed: Procedure: [id number] CT/CTA CHEST Exam Date: 10/23/17 Exam Time: [...] reviewed and is below limits set by [facility]). FINDINGS: Lines and Tubes: Pacemaker with [...] COPY TO: ARLETH WAHL MD CHEST SINGLE [address] (PORTABLE) [place] [address] Patient Name: FAITH VANCE MR #: [id number] : 1960 Age/Sex: 57/M Req #: [id number] Adm Physician: Ordered by: ARLETH WAHL MD Report #: [id number] Location: ER Room/Bed: Procedure: [id number] DX/CHEST SINGLE (PORTABLE) Exam Date: 10/23/17 Exam [...] TO: ARLETH WAHL MD CT BRAIN WO [place] [id number] [place] [address] Patient Name: FAITH VANCE MR #: [id number] : 1960 Age/Sex: 56/M Req #: [id number] Adm Physician: Ordered by: JACQUELYN MONTES DE OCA MD Report #: [id number] Location: ER Room/Bed: Procedure: [id number] CT/CT BRAIN WO Exam Date: Exam Time: [...] MONTES DE OCA MD CT CERVICAL SPINE [place] [address] Patient Name: FAITH VANCE MR #: [id number] : 1960 Age/Sex: 56/M Req #: [id number] Adm Physician: Ordered by: JACQUELYN MONTES DE OCA MD Report #: [id number] Location: ER Room/Bed: Procedure: [id number] CT/CT CERVICAL SPINE WO Exam Date: Exam [...] JACQUELYN MONTES DE OCA MD CHEST SINGLE [address] (PORTABLE) [place] [address] Patient Name: FAITH VANCE MR #: [id number] : 1960 Age/Sex: 56/M Req #: [id number] Adm Physician: Ordered by: JACQUELYN MONTES DE OCA MD Report #: [id number] Location: ER Room/Bed: Procedure: [id number] DX/CHEST SINGLE (PORTABLE) Exam Date: 04/04/17 Exam [...] DE OCA MD HIP RIGHT 2-[address] (+/- PELVIS) [place] [address] Patient Name: FAITH VANCE MR #: [id number] : 1960 Age/Sex: 56/M Req #: [id number] Adm Physician: Ordered by: JACQUELYN MONTES DE OCA MD Report #: [id number] Location: ER Room/Bed: Procedure: [id number] DX/HIP RIGHT 2-3 VW (+/- PELVIS) Exam [...] TO: JACQUELYN MONTES DE OCA MD LUMBAR, [address] COMPLETE MIN 4VW [place] [address] Patient Name: FAITH VANCE MR #: [id number] : 1960 Age/Sex: 56/M Req #: [id number] Adm Physician: Ordered by: JACQUELYN MONTES DE OCA MD Report #: [id number] Location: ER Room/Bed: Procedure: [id number] DX/SP LUMBAR, COMPLETE MIN 4VW Exam Date: [...] JACQUELYN MONTES DE OCA MD US ABDOMEN [place] [address] Patient Name: FAITH VANCE MR #: [id number] : 1960 Age/Sex: 56/M Req #: [id number] [facility] Physician: NICHELLE PALACIOS MD Ordered by: SCOTT AMIN MD Report #: [id number] Location: [facility] Room/Bed: [place] [address] Procedure: [id number] US/US ABDOMEN COMPLETE Exam Date: 03/08/17 Exam [...] 03/08/17 1040 COPY TO: SCOTT AMIN MD [place] [address] Patient Name: FAITH VANCE MR #: [id number] : 1960 Age/Sex: 56/M Req #: [id number] Adm Physician: Ordered by: JACQUELYN MONTES DE OCA MD Report #: [id number] Location: ER Room/Bed: Procedure: [id number] DX/CHEST SINGLE (PORTABLE) Exam Date: 03/05/17 Exam [...]
[2018-10-02 19:08] VITALS: BMI 27.1
[2018-10-02] MEDS ORDERED: GLUCAGON 1 MG/VIAL IM PRN (19:09)
[2018-10-02] MEDS ORDERED: D50W 25 GM/50 ML SYRINGE IV PRN (19:09)
[2018-10-02] MEDS ORDERED: NITROGLYCERIN 0.4 MG/TAB SL PRN (19:11)
[2018-10-02] MEDS: TRAMADOL HCL 50 MG TAB PO PRN (19:30)
[2018-10-02] MEDS: ATORVASTATIN 80 MG TAB PO SCH (20:15)
[2018-10-02] MEDS: GABAPENTIN 400 MG CAP PO SCH (20:15)
[2018-10-02 21:15] LABS: Urine Appearance CLEAR; Urine Bilirubin NEGATIVE (NEG); Urine Blood NEGATIVE (NEG); Urine Color YELLOW; Urine Glucose 3+ (NEG); Urine Protein NEGATIVE (NEG); Urine Specific Gravity >=1.030 (1.005-1.030); Urine Urobilinogen 0.2 mg/dL (0.2-1.0); Urine pH 5.5 (5.0-7.0)
[2018-10-02] MEDS: VENLAFAXINE HCL 75 MG TABLET PO SCH (21:25)
[2018-10-02] MEDS: NPH (HUMAN) 100 UNITS/ML INSULIN SQ SCH (21:26)
[2018-10-02] MEDS: INSULIN -REGULAR HUMAN 50 UNIT/0.5 ML ML SQ SCH (21:26)
[2018-10-02] MEDS ORDERED: DOCUSATE NA/SENNA CONC 1 TAB PO PRN (21:32)
[2018-10-02] MEDS ORDERED: ACETAMINOPHEN 500 MG TAB PO PRN (21:33)
[2018-10-02 21:58] LABS: Urine Bacteria <20 /HPF (NONE SEEN); Urine Culture Reflex Order NOT NEEDED; Urine RBC <5 /HPF (NONE SEEN)
[2018-10-03] MEDS: MELATONIN 3 MG TABLET PO PRN ×2 (00:31→21:38)
--- NOTE | 2018-10-03 00:37 | FAST ---
SHIFT START DATE/TIME: 10/02/2018 19:00 (CDT) SHIFT END DATE/TIME: 10/03/2018 07:00 (CDT) NAME FAITH VANCE DATE OF : 1960 DATE OF ADMISSION: 10/02/2018 19:00 (CDT) PHONE: AGE: 58 SSN# [id number] GENDER: Male ENCOUNTER PHYSICIAN: Dr. Luis Manuel Corley M.D. ADMISSION DIAGNOSIS: - Stroke 01 - Left Body (Right Brain) (01.1) Right CVA. EATING: Activity did not occur on this shift EATING - SCORE: 0-UNK GROOMING: Activity did not occur on this shift GROOMING - SCORE: 0-UNK BATHING: Activity did not occur on this shift BATHING - SCORE: 0-UNK DRESSING - UPPER BODY: Activity did not occur on this shift ARTICLES SCORE Total number of steps: 0 DRESSING - UPPER BODY - SCORE: 0-UNK DRESSING - LOWER BODY: Activity did not occur on this shift ARTICLES SCORE Total number of steps: 0 DRESSING - LOWER BODY - SCORE: 0-UNK TOILETING: Activity did not occur on this shift TOILETING - SCORE: 0-UNK BLADDER MANAGEMENT: Activity did not occur on this shift BLADDER MANAGEMENT - SCORE: 7-IND BOWEL MANAGEMENT: Activity did not occur on this shift BOWEL MANAGEMENT - SCORE: 7-IND TRANSFERS: BED, CHAIR, WHEELCHAIR: Activity did not occur on this shift TRANSFERS: BED, CHAIR, WHEELCHAIR - SCORE: 0-UNK TRANSFERS: TOILET: Activity did not occur on this shift TRANSFERS: TOILET - SCORE: 0-UNK TRANSFERS: SHOWER: Activity did not occur on this shift TRANSFERS: SHOWER - SCORE: 0-UNK TRANSFERS: TUB: Activity did not occur on this shift TRANSFERS: TUB - SCORE: 0-UNK LOCOMOTION: WALK: Activity did not occur on this shift LOCOMOTION: WALK - SCORE: 0-UNK LOCOMOTION: WHEELCHAIR: Activity did not occur on this shift LOCOMOTION: WHEELCHAIR - SCORE: 0-UNK COMPREHENSION: COMPREHENSION: TYPE: Both COMPREHENSION - STEP 1: Does the patient require help from a person or device, or need extra time to understand complex and a bstract ideas (such as current events, finances, discharge planning, medical issues, relationships, e tc)? No. COMPREHENSION - STEP 2: Does the patient need extra time, require an assistive device (such as glasses for visual comprehensi on or a hearing aid for auditory comprehension) or does s/he have mild difficulty understanding compl ex and abstract information? No. COMPREHENSION - SCORE: 7-IND EXPRESSION EXPRESSION: TYPE: Both EXPRESSION - STEP 1: Does the patient require help from a person or device, or need extra time expressing complex and abst ract ideas (such as current events, finances, discharge planning, medical issues, relationships, etc) ? No. EXPRESSION - STEP 2: Does the patient need extra time, require an assistive device (such as augmentive communication syste m or a communication board), OR does s/he have mild difficulty expressing complex and abstract ideas (including mild dysarthria or mild word-find problems)? No. EXPRESSION - SCORE: 7-IND SOCIAL INTERACTION: SOCIAL INTERACTION - STEP 1: Does the patient require a helper to interact with others in social and therapeutic situations? No. SOCIAL INTERACTION - STEP 2: Does the patient need extra time in social situations, OR does s/he interact with staff, other patien ts, and family members ONLY in structured environments, OR does s/he require medication for social in teraction? Yes, patient requires medication for social interaction SOCIAL INTERACTION - SCORE: 6-CASPER PROBLEM SOLVING: PROBLEM SOLVING - STEP 1: Does the patient need help from a person or device, or need extra time to solve complex problems such as managing a checking account or confronting interpersonal problems? No. PROBLEM SOLVING - STEP 2: Does the patient require extra time to make decisions or solve problems, OR does s/he have slight dif ficulty reading, initiating, or self-correcting in unfamiliar situations? No. PROBLEM SOLVING - SCORE: 7-IND MEMORY: MEMORY - STEP 1: Does the patient need help from a person or device, or need extra time to remember frequently encount ered people, daily routines, and executing requests? No. MEMORY - STEP 2: Does the patient have slight difficulty recognizing frequently encountered people, daily routines, or executing requests without the need for repetition or using self-initiated or environmental cues to remember? No. MEMORY - SCORE: 7-IND SIGNATURE PANEL: The following modified sections: Eating - Score, Grooming - Score, Bathing - Score, Dressing - Upper Body - Score, Dressing - Lower Body - Score, Toileting - Score, Bladder Management - Score, Bowel Man agement - Score, Transfers: Bed, Chair, Wheelchair - Score, Transfers: Toilet - Score, Transfers: Monica wer - Score, Transfers: Tub - Score, Locomotion: Walk - Score, Locomotion: Wheelchair - Score, Compre hension - Score, Expression - Score, Social Interaction - Score, Problem Solving - Score, Memory - Sc ore were [electronically] signed by Cara Roberts CNA on MonOct 03 2018 00:37:12 [facility]-0500 ([place] Time)
[2018-10-03 06:03] LABS: Absolute Lymphocytes (CBC) 2.8 K/uL (0.7-4.9); Absolute Monocytes 0.6 K/uL (0.1-1.3); Absolute Neutrophil 2.9 K/uL (1.8-8.0); Basophils % 0.5 % (0-1.3); Eosinophils % 6.9 % (0-4.4); Hematocrit 40.3 % (39.6-49.0); Lymphocytes % 41.3 % (15.3-44.8); MPV 8.7 fL (7.6-11.3); Monocytes % 8.2 % (3.3-12.3)
[2018-10-03 06:29] LABS: Albumin 3.2 g/dL (3.4-5.0); BUN Blood Urea Nitrogen 13 mg/dL (7-18); Bicarbonate 30 mmol/L (21-32); Glucose Level 203 mg/dL (74-106); Potassium 4.6 mmol/L (3.5-5.1); Prealbumin 18.3 mg/dL (20-40); Sodium Level 140 mmol/L (136-145)
[2018-10-03] MEDS: PANTOPRAZOLE 40MG TABLET PO SCH (07:03)
[2018-10-03] MEDS: LEVOTHYROXINE SOD 0.05 MG TABLET PO SCH (07:03)
[2018-10-03] MEDS ORDERED: INSULIN -REGULAR HUMAN 50 UNIT/0.5 ML ML SQ SCH (07:30)
[2018-10-03] MEDS ORDERED: ENOXAPARIN 30 MG/0.3 ML SQ SCH (08:00)
[2018-10-03] MEDS: GABAPENTIN 400 MG CAP PO SCH ×2 (08:36→20:39)
[2018-10-03] MEDS: METFORMIN ER 500 MG TAB PO SCH (08:37)
[2018-10-03] MEDS: ASPIRIN EC 81 MG TAB PO SCH (08:37)
[2018-10-03] MEDS: MAGNESIUM OXIDE 400 MG TAB PO SCH (08:38)
[2018-10-03] MEDS: CLOPIDOGREL 75 MG TABLET PO SCH (08:38)
[2018-10-03] MEDS: INSULIN -REGULAR HUMAN 50 UNIT/0.5 ML ML SQ SCH ×4 (08:41→21:38)
[2018-10-03] MEDS: NPH (HUMAN) 100 UNITS/ML INSULIN SQ SCH ×2 (09:14→20:39)
[2018-10-03] MEDS: VENLAFAXINE HCL 75 MG TABLET PO SCH ×2 (12:33→20:39)
[2018-10-03] MEDS: DOCUSATE NA/SENNA CONC 1 TAB PO SCH (12:40)
--- NOTE | 2018-10-03 13:36 | R.HP ---
FACILITY: [facility] ENCOUNTER DATE AND TIME: 10/03/2018 13:27 (CDT) MR#: [id number] NAME FAITH VANCE ADDRESS: [id number]: [place] [id number] PHONE: DATE OF : 1960 AGE: 58 SSN# [id number] GENDER: Male DEXTERITY Right-handed MARITAL STATUS RACE PRE-HOSPITAL LIVING SETTING 01 - Home (private home/apt. board/care, assisted living, alf, transitional living) PRE-HOSPITAL LIVING WITH Alone ENCOUNTER PHYSICIAN: Dr. Luis Manuel Corley M.D. REFERRING DOCTOR: mala Degroot DATE OF ADMISSION: 10/02/2018 19:00 (CDT) REFERRING FACILITY [facility] HOME TYPE AND DETAILS: Type of home: apartment # of levels in the residence: 1 # of steps to enter the residence: 14 # of steps within the residence: 0 ADMISSION DIAGNOSIS: Lumbar spinal cord and root compression and subacute stroke with residual left upper and lower extrem ity weakness ONSET DATE: 09/28/2018 PRIMARY DIAGNOSIS-RELATED SURGERIES: No surgeries related to the primary diagnosis were performed. SECONDARY/COMORBID DIAGNOSES (TIERED): - Non-Tiered Type 2 diabetes mellitus with diabetic neuropathy, unspecified (E11.40) - N/A BPH CAD CVA HLD HTN HYPOTHYROID KIDNEY STONES MAJOR DEPRESSIVE DISORDER HISTORY OF PRESENT ILLNESS (HPI): Pt. is a 58 yo Right-handed male. On 09/28/2018 Pt. presented to [facility] with sudden onset of left-side superimposed on chronic left lower extremity weakness secondary to lumbar cord and root compression. On 09/28/2018 he was admitted to [facility] with diagnosis Right CVA. His impairment category is Stroke 01 - Left Body (Right Brain) (01.1). Pre-morbidly, Pt. was independent/mod-I in Self-Care, Sphincter Control, Transfers Control, Locomotio n, Communication, and Social Cognition; and he had good Sphincter Control. Currently, he has deficits of Self-Care, Transfers Control, Locomotion, Endurance, Balance, and Safet y Awareness. Pt. is now referred to [facility] for acute in-patient rehabilitation in order to maximize patient's functional independence in activities of daily living, strength, ROM, and mobi lity. Patient has realistic goal of being discharged at assistance level 6-Reddy to reside at Home with Fam tomy/Relatives. Faith Vance is a 58 year old male that lives alone in an apartment garage with 14 steps to enter. Patient can do household ambulation modified independent with BADLs. On 09/28/2018, he had worsening left sided weakness, numbness and chest pain. Reports chest pain is 9/10 with SOB, radiating to left arm and was admitted to [facility] and treated. He is now medically stab le but in need of 24-hour nursing, doctor supervision and oversite while receiving The patient is reasonably expected to participate in 3hours of therapy a day/15 hours per week and receive care with an intensive interdisciplinary approach. MEDICATION ALLERGIES: No Known Drug Allergies (NKDA) ENVIRONMENTAL ALLERGIES: None Known - Substance Allergies None Known - Other Allergies None Known PAST MEDICAL HISTORY: BPH CAD CVA HLD HTN HYPOTHYROID KIDNEY STONES MAJOR DEPRESSIVE DISORDER Type 2 diabetes mellitus with diabetic neuropathy, unspecified (E11.40) PAST SURGICAL HISTORY: CABG BACK SURGERY Cholecystectomy PACEMAKER PLACEMENT REMOVAL OF KIDNEY STONE MULTIPLE PCI FAMILY HISTORY: Family history is not contributory. SOCIAL HISTORY: - Home Living Alone REVIEW OF SYSTEMS: - Gen No Chills Fatigue No Fever - Eyes No Double Vision No itchiness - ENMT No Difficulty Swallowing - CVS No Chest Discomfort No Chest Pain Fatigue No Weight Gain - Resp No Cough No Shortness of Breath - GI Continent No Abdominal Pain No Constipation No Diarrhea - Continent No Kidney Pain No Painful Urination No Urinary Urgency - MSK Joint Pain Muscle Cramps Stiffness - Skin No Itching No Rash No Suspicious Lesions - Neuro Coordination Difficulty No Difficulty with Concentration No Memory Loss No Seizures Weakness - Psych No Anxiety No Depression No HIV Exposure No Persistent Infections No Seasonal Allergies - Endo No Cold/Heat Intolerance No Excessive Hunger No Excessive Thirst No Excessive Urination PHYSICAL EXAM - Gen Alert and awake Lying in bed No apparent distress Oriented to: person, time, and place - Skin No breakdown No abnormalities - Eyes No abnormalities - ENMT No abnormalities - Neck No abnormalities - CVS RRR - Chest No abnormalities - Resp Clear to auscultation - Abd Soft - GI nondistended Deferred - No abnormalities - Ext No significant edema - MSK 4+/5 weakness in left upper and lower extremity - Neuro 4/5 strength left upper and lower extremities. - Psych No abnormalities VITAL SIGNS Temperature: 98.3 F SBP/DBP: 155/82 Pulse: 87 Resp: 18 NURSING: - Shower allowing shower - Lab Results blood Sugar Check ACHS - Bladder care per protocol - Skin care per protocol PRECAUTIONS: - Weight Bearing Precaution WBAT left LE ACTIVITIES OOB only with supervision FUNCTIONAL STATUS: - Self-Care A. Eating Ind sup B. Grooming Ind sup C. Bathing Ind sup D. Dressing - Upper Ind sup E. Dressing - Lower Ind CGA F. Toileting Ind sup - Sphincter Control G: Bladder control Ind Ind H: Bowel control Ind Ind - Transfers Control I. Bed/Chair/Wheelchair Ind Dat J. Toilet Ind Dat K. Tub/Shower Ind ADNO - Locomotion L. Walk/Wheelchair (C) Ind Dat L. Walk/Wheelchair (W) Ind Dat M. Stairs Ind ADNO - Communication N. Comprehension (B) Ind Ind O. Expression (B) Ind Ind - Social Cognition P. Social Interaction Ind Ind Q. Problem Solving Ind Ind R. Memory Ind Ind - Endurance Fair - Balance Fair - Safety Awareness Fair CURRENT FUNC. DEFICITS: Self-Care, Transfers Control, Locomotion, Endurance, Balance, and Safety Awareness ASSESSMENT: Pt. is a 58 yo Right-handed male.On 09/28/2018 Pt. presented to [facility] with sudden onset of le ft-side weakness.On 09/28/2018 he was admitted to [facility] with diagnosis Right CVA.His impairment catego ry is Stroke 01 - Left Body (Right Brain) (01.1).Pre-morbidly, Pt. was independent/mod-I in Self-Car e, Sphincter Control, Transfers Control, Locomotion, Communication, and Social Cognition; and he had good Sphincter Control.Currently, he has deficits of Self-Care, Transfers Control, Locomotion, Endura nce, Balance, and Safety Awareness.Pt. is now referred to [facility] for acute in-patient rehabilitation in order to maximize patient's functional independence in activities of da tomy living, strength, ROM, and mobility.- Rehab Goal Patient has realistic goal of being discharged at assistance level 6-Reddy to reside at Home with Fam tomy/Relatives. Faith Vance is a 58 year old male that lives alone in an apartment garage with 14 steps to enter. Patient can do household ambulation modified independent with BADLs. On 09/28/2018, he had worsening left sided weakness, numbness and chest pain. Reports chest pain is 9/10 with SOB, radiating to left arm and was admitted to [facility] and treated. He is now medically stab le but in need of 24-hour nursing, doctor supervision and oversite while receiving The patient is reasonably expected to participate in 3hours of therapy a day/15 hours per week and receive care with an intensive interdisciplinary approach.REHAB PLAN: for Dementia, TBI, Stroke, or others - Physical Therapy Weakness - to improve, our physical therapists will perform initial evaluation of pt's status upon a dmission and devise an individualized program for Aquatic Therapy, Neuromuscular Reeducation, and Str engthening Poor balance - to improve, our physical therapists will perform initial evaluation of pt's status up on admission and devise an individualized program for Balance Training Inability to transfer - to improve, our physical therapists will perform initial evaluation of pt's status upon admission and devise an individualized program for Bed mobility Need in caregiver upon discharge - to improve, our physical therapists will perform initial evaluati on of pt's status upon admission and devise an individualized program for Caregiver Training Poor endurance - to improve, our physical therapists will perform initial evaluation of pt's status upon admission and devise an individualized program for Endurance Training Gait dysfunction - to improve, our physical therapists will perform initial evaluation of pt's statu s upon admission and devise an individualized program for Gait Training, and Wheel Chair mobility Need for home safety evaluation - to improve, our physical therapists will perform initial evaluatio n of pt's status upon admission and devise an individualized program for Home Evaluation New precaution - to improve, our physical therapists will perform initial evaluation of pt's status upon admission and devise an individualized program for Patient precaution education Edema - to improve, our physical therapists will perform initial evaluation of pt's status upon admi ssion and devise an individualized program for Elevation Training, and Lymphedema Therapy - Occupational Therapy Weakness - to improve, our occupation therapists will perform initial evaluation of pt's status upon admission and devise an individualized program for Aquatic Therapy, Balance, Endurance, UE ROM, and UE strengthening ADL deficits - to improve, our occupation therapists will perform initial evaluation of pt's status upon admission and devise an individualized program for Bathing, Bed mobility, Community Reintegratio n, Cooking, Dressing, Eating, Fine Motor Skills, Grooming, Homemaking, Kitchen Mobility, Laundry, Pat ient Education, Safety Awareness, Splinting - Positioning, Transfers(Toilet, Tub, Shower), and Wheel Chair Management Need for rn palliative care - to improve, our occupation therapists will perform initial evaluation of pt's status upon admission and devise an individualized program for Caregiver Training - Balance for Weakness - Bed mobility for ADL deficits - Cognition - orientation for Dementia - Dressing Status: for ADL deficits - Eating for ADL deficits - Grooming Status: for ADL deficits - Toilet Transfer Status: for ADL deficits - Bed to Chair Transfer SELECT Status: for ADL deficits - Hygiene for ADL deficits - Tub Transfer for ADL deficits Status: - Shower Transfer for ADL deficits Status: - Wheel Chair to Bed Transfer Status: for ADL deficits MEDICAL PLAN: - Diet Type Regular - Diet - Liquid Texture Regular - Tube Feed N/A - Lab Results blood Sugar Check ACHS - Bladder care per protocol - Weight Bearing Precaution WBAT LE - Skin care per protocol - Diet - Solid Texture Regular - Shower shower DISCHARGE PLAN: - Estimated Length of Stay (days) 17. - Consensus on plan Discharge plan has been discussed with primary caregiver. Patient/Family is in agreement with the elmo n. Primary caregiver is in agreement with the plan. - Patient/Family Goals Return home with assistance. - Planned Living Setting Upon Discharge Home, to live with Family/Relatives. Transitional Living. SIGNATURE PANEL: (CDT)
--- NOTE | 2018-10-03 13:36 | FAST ---
ENCOUNTER DATE AND TIME: 10/03/2018 08:00 (CDT) NAME FAITH VANCE DATE OF : 1960 DATE OF ADMISSION: 10/02/2018 19:00 (CDT) PHONE: AGE: 58 N# [id number] GENDER: Male ENCOUNTER PHYSICIAN: Dr. Luis Manuel Corley M.D. 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 EATING: Activity did not occur on this shift EATING - SCORE: 0-UNK GROOMING: Comb/brush hair Oral care Wash, rinse, and dry face Wash, rinse, and dry hands GROOMING - STEP 1: Does the patient require the assistance of a person or device, or need extra time when grooming? No. GROOMING - SCORE: 7-IND BATHING: Abdomen Buttocks Chest Left arm Left lower leg and foot Left upper leg Perineal area Right arm Right lower leg and foot Right upper leg BATHING - STEP 1: Does the patient require the assistance of a person or device, or need extra time when bathing? Yes. BATHING - STEP 2: Does the patient require the assistance of a helper? Yes. BATHING - STEP 3: How much assistance does the patient require from the helper? Only incidental help such as placement of a wash cloth in his/her hand a few times as s/he bathes OR help to bathe just one or two areas of the body BATHING - SCORE: 4-MIN DRESSING - UPPER BODY: T-shirt/pullover shirt (four steps) ARTICLES SCORE Total number of steps: 4 DRESSING - UPPER BODY - STEP 1: Does the patient require help from a person or device, or need extra time when dressing above the [address]? No. DRESSING - UPPER BODY - SCORE: 7-IND DRESSING - LOWER BODY: Elastic waist pants (three steps) Sock - Left foot (one step) Sock - Right foot (one step) Tied or buckled shoe - Left foot (two steps) Tied or buckled shoe - Right foot (two steps) Underwear (three steps) ARTICLES SCORE Total number of steps: 12 DRESSING - LOWER BODY - STEP 1: Does the patient require help from a person or device, or need extra time when dressing below the [address]? Yes. DRESSING - LOWER BODY - STEP 2: Does the patient require the assistance of a helper? Yes. DRESSING - LOWER BODY - STEP 3: Does the helper touch the patient while dressing? Yes. DRESSING - LOWER BODY - STEP 4: How many of the total steps does the patient complete on his/her own? 11 DRESSING - LOWER BODY - SCORE: 4-MIN TOILETING: Activity did not occur on this shift TOILETING - SCORE: 0-UNK BLADDER MANAGEMENT: Activity did not occur on this shift BLADDER MANAGEMENT - SCORE: 7-IND BOWEL MANAGEMENT: Activity did not occur on this shift BOWEL MANAGEMENT - SCORE: 7-IND TRANSFERS: BED, CHAIR, WHEELCHAIR: Activity did not occur on this shift TRANSFERS: BED, CHAIR, WHEELCHAIR - SCORE: 0-UNK TRANSFERS: TOILET: Activity did not occur on this shift TRANSFERS: TOILET - SCORE: 0-UNK TRANSFERS: SHOWER: TRANSFERS: SHOWER - STEP 1: Does the patient require the assistance of a person or device, or need extra time with shower transfe rs? Yes. TRANSFERS: SHOWER - STEP 2: Does the patient require the assistance of a helper? Yes. TRANSFERS: SHOWER - STEP 3: How much assistance does the patient require from the helper? Only incidental help such as contact gu arding or steadying during shower transfers, or help to lift one leg into the shower TRANSFERS: SHOWER - SCORE: 4-MIN TRANSFERS: TUB: Activity did not occur on this shift TRANSFERS: TUB - SCORE: 0-UNK LOCOMOTION: WALK: Activity did not occur on this shift LOCOMOTION: WALK - SCORE: 0-UNK LOCOMOTION: WHEELCHAIR: Activity did not occur on this shift LOCOMOTION: WHEELCHAIR - SCORE: 0-UNK LOCOMOTION: STAIRS: Activity did not occur on this shift LOCOMOTION: STAIRS - SCORE: 0-UNK COMPREHENSION: COMPREHENSION: TYPE: Both COMPREHENSION - STEP 1: Does the patient require help from a person or device, or need extra time to understand complex and a bstract ideas (such as current events, finances, discharge planning, medical issues, relationships, e tc)? No. COMPREHENSION - STEP 2: Does the patient need extra time, require an assistive device (such as glasses for visual comprehensi on or a hearing aid for auditory comprehension) or does s/he have mild difficulty understanding compl ex and abstract information? No. COMPREHENSION - SCORE: 7-IND EXPRESSION EXPRESSION: TYPE: Both EXPRESSION - STEP 1: Does the patient require help from a person or device, or need extra time expressing complex and abst ract ideas (such as current events, finances, discharge planning, medical issues, relationships, etc) ? No. EXPRESSION - STEP 2: Does the patient need extra time, require an assistive device (such as augmentive communication syste m or a communication board), OR does s/he have mild difficulty expressing complex and abstract ideas (including mild dysarthria or mild word-find problems)? No. EXPRESSION - SCORE: 7-IND SOCIAL INTERACTION: SOCIAL INTERACTION - STEP 1: Does the patient require a helper to interact with others in social and therapeutic situations? No. SOCIAL INTERACTION - STEP 2: Does the patient need extra time in social situations, OR does s/he interact with staff, other patien ts, and family members ONLY in structured environments, OR does s/he require medication for social in teraction? Yes, patient needs extra time SOCIAL INTERACTION - SCORE: 6-CASPER PROBLEM SOLVING: PROBLEM SOLVING - STEP 1: Does the patient need help from a person or device, or need extra time to solve complex problems such as managing a checking account or confronting interpersonal problems? No. PROBLEM SOLVING - STEP 2: Does the patient require extra time to make decisions or solve problems, OR does s/he have slight dif ficulty reading, initiating, or self-correcting in unfamiliar situations? No. PROBLEM SOLVING - SCORE: 7-IND MEMORY: MEMORY - STEP 1: Does the patient need help from a person or device, or need extra time to remember frequently encount ered people, daily routines, and executing requests? No. MEMORY - STEP 2: Does the patient have slight difficulty recognizing frequently encountered people, daily routines, or executing requests without the need for repetition or using self-initiated or environmental cues to remember? No. MEMORY - SCORE: 7-IND SIGNATURE PANEL: The following modified sections: Eating - Score, Grooming - Score, Bathing - Score, Dressing - Upper Body - Score, Dressing - Lower Body - Score, Toileting - Score, Transfers: Bed, Chair, Wheelchair - S core, Transfers: Toilet - Score, Transfers: Tub - Score, Transfers: Shower - Score, Comprehension - S core, Expression - Score, Social Interaction - Score, Problem Solving - Score, Memory - Score were [e lectronically] signed by Diya Correa OT on MonOct 03 2018 13:35:19 T-0500 ([facility])
--- NOTE | 2018-10-03 13:37 | PAPE ---
PATIENT: [facility] MR# [id number] REFERRING DOCTOR mala Degroot EVALUATION DATE AND TIME 10/03/2018 13:35 (CDT) NAME FAITH VANCE DATE OF 1960 AGE 58 PHONE SSN# [id number] GENDER male EVALUATING PHYSICIAN Dr. Luis Manuel Corley M.D. ADMISSION DIAGNOSIS: Lumbar spinal cord and root compression and subacute stroke with residual left upper and lower extrem ity weakness ONSET DATE 09/28/2018 SECONDARY/COMORBID DIAGNOSES TIERED: - Non-Tiered Type 2 diabetes mellitus with diabetic neuropathy, unspecified (E11.40) - N/A BPH CAD CVA HLD HTN HYPOTHYROID KIDNEY STONES MAJOR DEPRESSIVE DISORDER POST-ADMISSION FUNCTIONAL/MEDICAL STATUS: - Bladder Same accident frequency: Ind - No accidents in the past 7 days - Bowel Same accident frequency: Ind - No accidents in the past 7 days - Walking Same score based on distance walked: 1(<=50ft) - Wheelchair Same score based on distance traveled: 0(N/A) STATUS CHANGE EVALUATION: No change in Functional or Medical Status is identified compared with Pre-Admission screening. PATIENT NEEDS CLOSE MEDICAL SUPERVISION BY A REHABILITATION PHYSICIAN FOR: Bowel and Bladder Management Coordination of Treatment Team Diabetes Management Medical and Co-Morbidity Management DVT Management Pain Management PATIENT REQUIRES 24X7 REHAB NURSING FOR MEDICAL AND FUNCTIONAL MGT. OF THE FOLLOWING DEFICITS: ADL's Ambulation Bowel and Bladder Management Communication Disease Management Medication Management Patient/Family Education Providing Safe Environment Transfers DVT Management Pain Management PATIENT REQUIRES INTENSIVE, COORDINATED INTERDISCIPLINARY APPROACH TO REHAB: Arranging Home Equipment/Services Discharge Planning Family Intervention/Training Provider Relations Representative/Case Management LIST OF IDENTIFIED AND POTENTIAL PROBLEMS: Alteration in leisure activities Bladder, Incontinence Bowel, Incontinence Diabetes, Hyperglycemia/hypoglycemia Issues Infection, Actual or Potential Mobility Impaired Pain, Alteration in Comfort Self Care Deficit Skin Integrity, Actual or Potential Urinary Tract Infection (UTI), Actual or Potential RISK FOR COMPLICATIONS - CAD CHF. Cardiac Arrest. NV. Pain. - Hypothyroid Depression. Weight gain. INTERVENTIONS - CAD 02 sats. Activity management. Medications. VS. - Hypothyroid Medications. PATIENT COULD BE AT RISK FOR COMPLICATIONS FROM ADVERSE MEDICAL CONDITIONS DUE TO HIS/HER COMORBIDITI ES AND THE RIGORS OF THE INTENSIVE REHABILLITATION PROGRAM. METHODS OR INTERVENTIONS TO AVOID COMPLIC ATIONS INCLUDE: - Deep Vein Thrombosis (DVT) Prophylaxis therapy for prevention . Sequential Compression Device (SCD). TE D Hose. - Bleeding Stroke patients assessed for lethargy or change in status. - Infection Clinical staff to assess and manage the signs and symptoms of infection including fever, redness, war mth, etc. - Urinary Tract Infection - Aspiration Clinical staff will assess and manage coughing, drooling, congestion. - Falls Patient will be evaluated for Fall Precautions and will be placed on Fall Precautions as indicated pe r protocol. - Skin Breakdown Nursing will assess skin daily using assessment tool and will place on Skin Breakdown Precautions as indicated per protocol. - Pain Clinical staff may employ non-medication methods such as massage, distraction, decrease stimulus, etc . as needed. Clinical staff will assess patient's pain level every shift per protocol to assess and e nsure pain management effectiveness. Medications will be given and the pain level re-assessed. PRELIMINARY PLAN OF CARE: - Physical Therapy Patient needs Physical Therapy for a daily minimum of 1.5 hours at least 5 out of 7 days, to improve: Mobility, Strengthening, Transfers, Stretching, ROM, Endurance, Ability to manage stairs, Gait, and Balance. - Speech Therapy Patient needs Speech Therapy for a daily minimum of 0.5 hours at least 5 out of 7 days, to improve: S wallowing, Cognition, Language Skills, and Compensatory Strategies. - Rehabilitation Nursing Patient requires 24x7 Rehabilitation Nursing for: Pain Issues, Identifying and preventing risk factor s, Monitoring and reporting current medical conditions, Assisting with ambulation and transfer, Martha ting with all ADL-s, Teaching patients about disease process and medications, Family teaching, Provid ing safe environment, Bowel and Bladder Issues, Skin Integrity, and Medication Management. Patient needs Provider Relations Representative and/or Case Management for: Discharge Planning, Arranging Home Equipmen t or Services, and Family Interventions. - Dietary and Nutrition Services Patient needs Dietary and Nutrition Services for: Adequate Nutrition, Nutritional Supplements, and Nu tritional Education. - Occupational Therapy Patient needs Occupational Therapy for a daily minimum of 1.5 hours at least 5 out of 7 days, to impr ove Activities of Daily Living, including: Eating, Grooming, Bathing, Dressing, Toileting, Toilet Tra nsfers, Community Reintegration, Higher functional activities, Adaptive Equipment, Splinting, Househo ld Tasks, and Other activities as determined. POTENTIAL FUNCTIONAL GOALS FOR PATIENT TO ACHIEVE BY DISCHARGE: - Safety Precaution Patient will remain free from falls or injury at time of discharge. - Bed Mobility Patient will perform bed mobility at 4-Dat level of assistance. - Transfers Patient will complete transfers from bed to chair at 4-Dat level of assistance. - Mobility Patient will ambulate 150 ft with 4-Dat level of assistance with RW. PATIENT REHAB POTENTIAL Expected level of measurable improvement will be of a practical value to patient's functional capacit y or adaptations to impairments Has a viable Discharge Plan Medically appropriate; condition is sufficiently stable to participate in intensive rehab program Patient is able and expected to receive 3 hours of individualized therapy daily on at least 5 of ever y 7 days Patient's prognosis for significant practical improvement within a reasonable period of time appears Good DISCHARGE PLAN: - Estimated Length of Stay (days) 17. - Consensus on plan Discharge plan has been discussed with primary caregiver. Patient/Family is in agreement with the elmo n. Primary caregiver is in agreement with the plan. - Patient/Family Goals Return home with assistance. - Planned Living Setting Upon Discharge Home, to live with Family/Relatives. Transitional Living. CONCLUSION ON REHABILITATION NECESSITY: I have evaluated patient's pre-admission functional status and, comparing it to the patient's post-ad mission functional status now, I conclude that the pre-admission assessment was accurate. Patient's c ondition on admission supports the medical necessity of admission to IR[facility]. It is safe to proceed with patient's therapy program. SIGNATURE PANEL: (CDT)
--- NOTE | 2018-10-03 13:57 | FAST ---
SHIFT START DATE/TIME: 10/03/2018 07:00 (CDT) SHIFT END DATE/TIME: 10/03/2018 19:00 (CDT) NAME FAITH VANCE DATE OF : 1960 DATE OF ADMISSION: 10/02/2018 19:00 (CDT) PHONE: AGE: 58 N# [id number] GENDER: Male ENCOUNTER PHYSICIAN: Dr. Luis Manuel Corley M.D. 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 EATING: EATING - STEP 1: Does the patient require the assistance of a person or device, or need extra time when eating? Yes. EATING - STEP 2: Does the patient require the assistance of a helper? Yes. EATING - STEP 3: Does the patient perform half or more of the eating tasks? Yes. EATING - STEP 4: Does the patient need only supervision, cuing, coaxing OR help to apply an orthosis OR help to cut fo od, open containers, pour liquids, or butter bread? Yes. EATING - SCORE: 5-SUP GROOMING: Activity did not occur on this shift GROOMING - SCORE: 0-UNK GROOMING - COMMENTS: Waiting for therapist and shower BATHING: Activity did not occur on this shift BATHING - SCORE: 0-UNK DRESSING - UPPER BODY: Activity did not occur on this shift ARTICLES SCORE Total number of steps: 0 DRESSING - UPPER BODY - SCORE: 0-UNK DRESSING - UPPER BODY - COMMENTS: Waiting for therapist and shower DRESSING - LOWER BODY: Activity did not occur on this shift ARTICLES SCORE Total number of steps: 0 DRESSING - LOWER BODY - SCORE: 0-UNK DRESSING - LOWER BODY - COMMENTS: Waiting for therapist and shower TOILETING: TOILETING - STEP 1: Does the patient require the assistance of a person or device, or need extra time with toileting? Yes . TOILETING - STEP 2: Does the patient require the assistance of a helper? Yes. TOILETING - STEP 3: How much assistance does the patient require from the helper? Hands-on assistance from the helper TOILETING - STEP 4: Of the 3 tasks: 1) Adjusting clothing prior to use, 2) Cleansing of perineal area, 3) Adjusting clot betty after use; How many tasks does the patient perform WITHOUT assistance of the helper? Three tasks with steadying assistance from the helper TOILETING - SCORE: 4-MIN BLADDER MANAGEMENT: BLADDER MANAGEMENT - STEP 1: Does the patient control the bladder completely and intentionally without equipment or devices or med ications, and is always continent? No. BLADDER MANAGEMENT - STEP 2: Does the patient require the assistance of a helper? Yes. BLADDER MANAGEMENT - STEP 3: How much assistance does the patient require from the helper? Patient requires contact assistance fro m the helper BLADDER MANAGEMENT - STEP 4: How much contact assistance does the patient require from the helper? Patient requires minimal assist ance to maintain an external device - by positioning, and the patient performs 75% or more of bladder management tasks, while the helper provides less than 25% of the assistance to position patient on / off bedpan BLADDER MANAGEMENT - SCORE: 4-MIN BLADDER MANAGEMENT - FREQUENCY OF ACCIDENTS: BLADDER MANAGEMENT(FA) - STEP 1: How many accidents has the patient had during the current shift? 0 BOWEL MANAGEMENT: Activity did not occur on this shift BOWEL MANAGEMENT - SCORE: 7-IND BOWEL MANAGEMENT - FREQUENCY OF ACCIDENTS: BOWEL MANAGEMENT(FA) - STEP 1: How many accidents has the patient had during the current shift? 0 TRANSFERS: BED, CHAIR, WHEELCHAIR: TRANSFERS: BED, CHAIR, WHEELCHAIR - STEP 1: Does the patient require assistance of a person or device, or need extra time with bed, chair, or whe elchair transfers? Yes. TRANSFERS: BED, CHAIR, WHEELCHAIR - STEP 2: Does the patient require the assistance of a helper? Yes. TRANSFERS: BED, CHAIR, WHEELCHAIR - STEP 3: How much assistance does the patient require from the helper? Lifting of the legs TRANSFERS: BED, CHAIR, WHEELCHAIR - STEP 4: How many legs does the patient require the helper to lift? both legs TRANSFERS: BED, CHAIR, WHEELCHAIR - SCORE: 3-MOD TRANSFERS: TOILET: TRANSFERS: TOILET - STEP 1: Does the patient require the assistance of a person or device, or need extra time with toilet transfe rs? Yes. TRANSFERS: TOILET - STEP 2: Does the patient require the assistance of a helper? Yes. TRANSFERS: TOILET - STEP 3: How much assistance does the patient require from the helper? Patient performs half or more of the tr ansferring tasks TRANSFERS: TOILET - STEP 4: Does the patient need only incidental help such as contact guard or steadying during toilet transfer? Yes. TRANSFERS: TOILET - SCORE: 4-MIN TRANSFERS: SHOWER: Activity did not occur on this shift TRANSFERS: SHOWER - SCORE: 0-UNK TRANSFERS: TUB: Activity did not occur on this shift TRANSFERS: TUB - SCORE: 0-UNK LOCOMOTION: WALK: Activity did not occur on this shift LOCOMOTION: WALK - SCORE: 0-UNK LOCOMOTION: WHEELCHAIR: Activity did not occur on this shift LOCOMOTION: WHEELCHAIR - SCORE: 0-UNK COMPREHENSION: COMPREHENSION: TYPE: Both COMPREHENSION - STEP 1: Does the patient require help from a person or device, or need extra time to understand complex and a bstract ideas (such as current events, finances, discharge planning, medical issues, relationships, e tc)? No. COMPREHENSION - STEP 2: Does the patient need extra time, require an assistive device (such as glasses for visual comprehensi on or a hearing aid for auditory comprehension) or does s/he have mild difficulty understanding compl ex and abstract information? Yes. COMPREHENSION - SCORE: 6-CASPER EXPRESSION EXPRESSION: TYPE: Both EXPRESSION - STEP 1: Does the patient require help from a person or device, or need extra time expressing complex and abst ract ideas (such as current events, finances, discharge planning, medical issues, relationships, etc) ? No. EXPRESSION - STEP 2: Does the patient need extra time, require an assistive device (such as augmentive communication syste m or a communication board), OR does s/he have mild difficulty expressing complex and abstract ideas (including mild dysarthria or mild word-find problems)? Yes. EXPRESSION - SCORE: 6-CASPER SOCIAL INTERACTION: SOCIAL INTERACTION - STEP 1: Does the patient require a helper to interact with others in social and therapeutic situations? No. SOCIAL INTERACTION - STEP 2: Does the patient need extra time in social situations, OR does s/he interact with staff, other patien ts, and family members ONLY in structured environments, OR does s/he require medication for social in teraction? Yes, patient needs extra time SOCIAL INTERACTION - SCORE: 6-CASPER PROBLEM SOLVING: PROBLEM SOLVING - STEP 1: Does the patient need help from a person or device, or need extra time to solve complex problems such as managing a checking account or confronting interpersonal problems? No. PROBLEM SOLVING - STEP 2: Does the patient require extra time to make decisions or solve problems, OR does s/he have slight dif ficulty reading, initiating, or self-correcting in unfamiliar situations? Yes, patient needs extra ti me. PROBLEM SOLVING - SCORE: 6-CASPER MEMORY: MEMORY - STEP 1: Does the patient need help from a person or device, or need extra time to remember frequently encount ered people, daily routines, and executing requests? No. MEMORY - STEP 2: Does the patient have slight difficulty recognizing frequently encountered people, daily routines, or executing requests without the need for repetition or using self-initiated or environmental cues to remember? Yes. MEMORY - SCORE: 6-CASPER SIGNATURE PANEL: The following modified sections: Eating - Score, Grooming - Score, Grooming - Comments:, Bathing - Sc ore, Dressing - Upper Body - Score, Dressing - Upper Body - Comments:, Dressing - Lower Body - Score, Dressing - Lower Body - Comments:, Toileting - Score, Bladder Management - Score, Bowel Management - Score, Transfers: Bed, Chair, Wheelchair - Score, Transfers: Toilet - Score, Transfers: Shower - Sco re, Transfers: Tub - Score, Locomotion: Walk - Score, Locomotion: Wheelchair - Score, Comprehension - Score, Expression - Score, Social Interaction - Score, Problem Solving - Score, Memory - Score were [electronically] signed by Bren Hook C.N.A. on MonOct 03 2018 13:56:18 [id number] ([facility])
[2018-10-03] MEDS: TRAMADOL HCL 50 MG TAB PO PRN (15:46)
[2018-10-03] MEDS: HYDROCODONE/APAP 5/325 MG TAB PO PRN (18:39)
[2018-10-03] MEDS: ATORVASTATIN 80 MG TAB PO SCH (20:39)
[2018-10-04] MEDS: HYDROCODONE/APAP 5/325 MG TAB PO PRN ×3 (02:12→15:09)
--- NOTE | 2018-10-04 02:27 | FAST ---
SHIFT START DATE/TIME: 10/03/2018 19:00 (CDT) SHIFT END DATE/TIME: 10/04/2018 07:00 (CDT) NAME FAITH VANCE DATE OF : 1960 DATE OF ADMISSION: 10/02/2018 19:00 (CDT) PHONE: AGE: 58 N# [id number] GENDER: Male ENCOUNTER PHYSICIAN: Dr. Luis Manuel Corley M.D. 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 EATING: Activity did not occur on this shift EATING - SCORE: 0-UNK GROOMING: Activity did not occur on this shift GROOMING - SCORE: 0-UNK BATHING: Activity did not occur on this shift BATHING - SCORE: 0-UNK DRESSING - UPPER BODY: Patient is not dressing in public clothing ARTICLES SCORE Total number of steps: 0 DRESSING - UPPER BODY - SCORE: 0-UNK DRESSING - LOWER BODY: Patient is not dressing in public clothing ARTICLES SCORE Total number of steps: 0 DRESSING - LOWER BODY - SCORE: 0-UNK TOILETING: TOILETING - STEP 1: Does the patient require the assistance of a person or device, or need extra time with toileting? Yes . TOILETING - STEP 2: Does the patient require the assistance of a helper? Yes. TOILETING - STEP 3: How much assistance does the patient require from the helper? Hands-on assistance from the helper TOILETING - STEP 4: Of the 3 tasks: 1) Adjusting clothing prior to use, 2) Cleansing of perineal area, 3) Adjusting clot betty after use; How many tasks does the patient perform WITHOUT assistance of the helper? Three tasks with steadying assistance from the helper TOILETING - SCORE: 4-MIN BLADDER MANAGEMENT: BLADDER MANAGEMENT - STEP 1: Does the patient control the bladder completely and intentionally without equipment or devices or med ications, and is always continent? No. BLADDER MANAGEMENT - STEP 2: Does the patient require the assistance of a helper? Yes. BLADDER MANAGEMENT - STEP 3: How much assistance does the patient require from the helper? Only set-up of equipment - such as plac ing it within reach of the patient or emptying a device - to maintain either satisfactory voiding pat tern or managing an external device, such as an absorbent pad, ileal device, or catheter BLADDER MANAGEMENT - SCORE: 5-SUP BOWEL MANAGEMENT: Activity did not occur on this shift BOWEL MANAGEMENT - SCORE: 7-IND TRANSFERS: BED, CHAIR, WHEELCHAIR: TRANSFERS: BED, CHAIR, WHEELCHAIR - STEP 1: Does the patient require assistance of a person or device, or need extra time with bed, chair, or whe elchair transfers? Yes. TRANSFERS: BED, CHAIR, WHEELCHAIR - STEP 2: Does the patient require the assistance of a helper? Yes. TRANSFERS: BED, CHAIR, WHEELCHAIR - STEP 3: How much assistance does the patient require from the helper? Steadying/guiding assistance TRANSFERS: BED, CHAIR, WHEELCHAIR - SCORE: 4-MIN TRANSFERS: TOILET: TRANSFERS: TOILET - STEP 1: Does the patient require the assistance of a person or device, or need extra time with toilet transfe rs? Yes. TRANSFERS: TOILET - STEP 2: Does the patient require the assistance of a helper? Yes. TRANSFERS: TOILET - STEP 3: How much assistance does the patient require from the helper? Patient performs half or more of the tr ansferring tasks TRANSFERS: TOILET - STEP 4: Does the patient need only incidental help such as contact guard or steadying during toilet transfer? Yes. TRANSFERS: TOILET - SCORE: 4-MIN TRANSFERS: SHOWER: Activity did not occur on this shift TRANSFERS: SHOWER - SCORE: 0-UNK TRANSFERS: TUB: Activity did not occur on this shift TRANSFERS: TUB - SCORE: 0-UNK LOCOMOTION: WALK: Activity did not occur on this shift LOCOMOTION: WALK - SCORE: 0-UNK LOCOMOTION: WHEELCHAIR: Activity did not occur on this shift LOCOMOTION: WHEELCHAIR - SCORE: 0-UNK COMPREHENSION: COMPREHENSION: TYPE: Both COMPREHENSION - STEP 1: Does the patient require help from a person or device, or need extra time to understand complex and a bstract ideas (such as current events, finances, discharge planning, medical issues, relationships, e tc)? No. COMPREHENSION - STEP 2: Does the patient need extra time, require an assistive device (such as glasses for visual comprehensi on or a hearing aid for auditory comprehension) or does s/he have mild difficulty understanding compl ex and abstract information? Yes. COMPREHENSION - SCORE: 6-CASPER EXPRESSION EXPRESSION: TYPE: Both EXPRESSION - STEP 1: Does the patient require help from a person or device, or need extra time expressing complex and abst ract ideas (such as current events, finances, discharge planning, medical issues, relationships, etc) ? No. EXPRESSION - STEP 2: Does the patient need extra time, require an assistive device (such as augmentive communication syste m or a communication board), OR does s/he have mild difficulty expressing complex and abstract ideas (including mild dysarthria or mild word-find problems)? Yes. EXPRESSION - SCORE: 6-CASPER SOCIAL INTERACTION: SOCIAL INTERACTION - STEP 1: Does the patient require a helper to interact with others in social and therapeutic situations? No. SOCIAL INTERACTION - STEP 2: Does the patient need extra time in social situations, OR does s/he interact with staff, other patien ts, and family members ONLY in structured environments, OR does s/he require medication for social in teraction? Yes, patient needs extra time SOCIAL INTERACTION - SCORE: 6-CASPER PROBLEM SOLVING: PROBLEM SOLVING - STEP 1: Does the patient need help from a person or device, or need extra time to solve complex problems such as managing a checking account or confronting interpersonal problems? No. PROBLEM SOLVING - STEP 2: Does the patient require extra time to make decisions or solve problems, OR does s/he have slight dif ficulty reading, initiating, or self-correcting in unfamiliar situations? Yes, patient needs extra ti me. PROBLEM SOLVING - SCORE: 6-CASPER MEMORY: MEMORY - STEP 1: Does the patient need help from a person or device, or need extra time to remember frequently encount ered people, daily routines, and executing requests? No. MEMORY - STEP 2: Does the patient have slight difficulty recognizing frequently encountered people, daily routines, or executing requests without the need for repetition or using self-initiated or environmental cues to remember? Yes. MEMORY - SCORE: 6-CASPER
[2018-10-04] MEDS: TRAMADOL HCL 50 MG TAB PO PRN ×3 (05:10→19:17)
[2018-10-04] MEDS: LEVOTHYROXINE SOD 0.05 MG TABLET PO SCH (07:00)
[2018-10-04] MEDS: PANTOPRAZOLE 40MG TABLET PO SCH (07:00)
[2018-10-04] MEDS: INSULIN -REGULAR HUMAN 50 UNIT/0.5 ML ML SQ SCH ×4 (07:30→21:00)
[2018-10-04] MEDS: VENLAFAXINE HCL 75 MG TABLET PO SCH ×2 (08:00→19:17)
[2018-10-04] MEDS ORDERED: LIDOCAINE 5% PATCH TOP SCH (08:00)
[2018-10-04] MEDS: METFORMIN ER 500 MG TAB PO SCH (08:21)
[2018-10-04] MEDS: MAGNESIUM OXIDE 400 MG TAB PO SCH ×2 (08:21→19:16)
[2018-10-04] MEDS: CLOPIDOGREL 75 MG TABLET PO SCH (08:21)
[2018-10-04] MEDS: ENOXAPARIN 40 MG/0.4 ML SQ SCH (08:23)
[2018-10-04] MEDS: ASPIRIN EC 81 MG TAB PO SCH (08:23)
[2018-10-04] MEDS: FLUDROCORTISONE 0.1 MG TAB PO SCH (08:24)
[2018-10-04] MEDS: GABAPENTIN 400 MG CAP PO SCH (08:24)
[2018-10-04] MEDS: NPH (HUMAN) 100 UNITS/ML INSULIN SQ SCH ×2 (09:45→21:04)
--- NOTE | 2018-10-04 14:37 | RAD REPORT ---
EXAM DESCRIPTION: RAD - Barium Swallow Modified - 10/04/2018 2:30 pm CLINICAL HISTORY: CVA/dysphagia FINDINGS: Laryngeal penetration which cleared with thin liquid. The oropharyngeal phase of swallowing is unremarkable. There is no pooling of contrast within the valleculae/piriform sinus. No aspiration seen Fluoroscopy time 3.02 minutes. Sixteen fluoroscopic spot series obtained
[2018-10-04] MEDS: GABAPENTIN 300 MG CAP PO SCH ×2 (14:50→21:04)
--- NOTE | 2018-10-04 15:05 | FAST ---
ENCOUNTER DATE AND TIME: 10/04/2018 08:00 (CDT) NAME FAITH VANCE DATE OF : 1960 DATE OF ADMISSION: 10/02/2018 19:00 (CDT) PHONE: AGE: 58 N# [id number] GENDER: Male ENCOUNTER PHYSICIAN: Dr. Luis Manuel Corley M.D. 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 EATING: Activity did not occur on this shift EATING - SCORE: 0-UNK GROOMING: Activity did not occur on this shift GROOMING - SCORE: 0-UNK BATHING: Activity did not occur on this shift BATHING - SCORE: 0-UNK DRESSING - UPPER BODY: Activity did not occur on this shift Patient is not dressing in public clothing ARTICLES SCORE Total number of steps: 0 DRESSING - UPPER BODY - SCORE: 0-UNK DRESSING - LOWER BODY: Activity did not occur on this shift Patient is not dressing in public clothing ARTICLES SCORE Total number of steps: 0 DRESSING - LOWER BODY - SCORE: 0-UNK TOILETING: Activity did not occur on this shift TOILETING - SCORE: 0-UNK BLADDER MANAGEMENT: Activity did not occur on this shift BLADDER MANAGEMENT - SCORE: 7-IND BOWEL MANAGEMENT: Activity did not occur on this shift BOWEL MANAGEMENT - SCORE: 7-IND TRANSFERS: BED, CHAIR, WHEELCHAIR: TRANSFERS: BED, CHAIR, WHEELCHAIR - STEP 1: Does the patient require assistance of a person or device, or need extra time with bed, chair, or whe elchair transfers? Yes. TRANSFERS: BED, CHAIR, WHEELCHAIR - STEP 2: Does the patient require the assistance of a helper? Yes. TRANSFERS: BED, CHAIR, WHEELCHAIR - STEP 3: How much assistance does the patient require from the helper? Steadying/guiding assistance TRANSFERS: BED, CHAIR, WHEELCHAIR - SCORE: 4-MIN TRANSFERS: TOILET: Activity did not occur on this shift TRANSFERS: TOILET - SCORE: 0-UNK TRANSFERS: SHOWER: Activity did not occur on this shift TRANSFERS: SHOWER - SCORE: 0-UNK TRANSFERS: TUB: Activity did not occur on this shift TRANSFERS: TUB - SCORE: 0-UNK LOCOMOTION: WALK: LOCOMOTION: WALK - STEP 1: Does the patient need help from a person or device, or need extra time to walk 150 feet? Yes. LOCOMOTION: WALK - STEP 2: How much assistance does the patient require to walk a minimum of 150 feet? Patient walks less than 1 50 feet - but more than 50 feet - with the assistance of only one helper LOCOMOTION: WALK - SCORE: 2-MAX LOCOMOTION: WHEELCHAIR: Activity did not occur on this shift LOCOMOTION: WHEELCHAIR - SCORE: 0-UNK LOCOMOTION: STAIRS: Activity did not occur on this shift LOCOMOTION: STAIRS - SCORE: 0-UNK COMPREHENSION: COMPREHENSION - SCORE: 0-UNK EXPRESSION EXPRESSION - SCORE: 0-UNK SOCIAL INTERACTION: SOCIAL INTERACTION - SCORE: 0-UNK PROBLEM SOLVING: PROBLEM SOLVING - SCORE: 0-UNK MEMORY: MEMORY - SCORE: 0-UNK SIGNATURE PANEL: The following modified sections: Transfers: Bed, Chair, Wheelchair - Score, Transfers: Toilet - Score , Locomotion: Walk - Score, Locomotion: Wheelchair - Score, Locomotion: Stairs - Score were [electron raiza] signed by Ryan Mckeon PT on MonOct 04 2018 15:04:23 T-0500 (Central Daylight Time)
[2018-10-04] MEDS: LIDOCAINE 5% PATCH TOP SCH (15:10)
--- NOTE | 2018-10-04 15:41 | R.PN ---
ENCOUNTER DATE AND TIME: 10/04/2018 15:36 (CDT) NAME FAITH VANCE DATE OF : 1960 DATE OF ADMISSION: 10/02/2018 19:00 (CDT) Lumbar spinal cord and root compression and subacute stroke with residual left upper and lower extrem ity weaknessCHIEF COMPLAINT: Spinal cord compression and subacute stroke SUBJECTIVE: Pt denied any Shortness of Breath. Pt denied any depression. AMbulated 275' with contact guard assistance using a rolling walker. VITAL SIGNS Temperature: 98.3 F SBP/DBP: 108/69 Pulse: 77 Resp: 16 MEDICATION ALLERGIES: No Known Drug Allergies (NKDA) ENVIRONMENTAL ALLERGIES: None Known - Substance Allergies None Known - Other Allergies None Known NURSING: - Shower allowing shower - Lab Results blood Sugar Check ACHS - Bladder care per protocol - Skin care per protocol PRECAUTIONS: - Weight Bearing Precaution WBAT left LE ACTIVITIES OOB only with supervision THERAPIES: - Occupational Therapy Evaluate and Treat. Visual Perceptual Training. Cognitive Retraining. - Speech Therapy Cognitive Training. Memory Strategies. Expressive Language Skills. Speech Intelligibility Training. R eceptive Language Skills. - Physical Therapy Evaluate and Treat. PHYSICAL EXAM - Gen Alert and awake Lying in bed No apparent distress Oriented to: person, time, and place - Skin No breakdown No abnormalities - Eyes No abnormalities - ENMT No abnormalities - Neck No abnormalities - CVS RRR - Chest No abnormalities - Resp Clear to auscultation - Abd Soft - GI nondistended Deferred - No abnormalities - Ext No significant edema - MSK 4+/5 weakness in left upper and lower extremity - Neuro 4/5 strength left upper and lower extremities. - Psych No abnormalities ASSESSMENT: Pt. is a 58 yo Right-handed male.On 09/28/2018 Pt. presented to [facility] with sudden onset of le ft-side superimposed on chronic left lower extremity weakness secondary to lumbar cord and root compr ession.On 09/28/2018 Pt. presented to [facility] with sudden onset of left-side weakness.On 09/28/2018 he w as admitted to [facility] with diagnosis Right CVA.His impairment category is Stroke 01 - Left Body (Right Brain) (01.1).Pre-morbidly, Pt. was independent/mod-I in Self-Care, Sphincter Control, Transfers Con trol, Locomotion, Communication, and Social Cognition; and he had good Sphincter Control.Currently, h chelita has deficits of Self-Care, Transfers Control, Locomotion, Endurance, Balance, and Safety Awareness. Pt. is now referred to [facility] for acute in-patient rehabilitation in order to maximize patient's functional independence in activities of daily living, strength, ROM, and mobi lity.- Rehab Goal Patient has realistic goal of being discharged at assistance level 6-Reddy to reside at Home with Fam tomy/Relatives. MDM/PLAN: - Physical Therapy Weakness - to improve, our physical therapists will perform initial evaluation of pt's status upon ad mission and devise an individualized program for Aquatic Therapy, Neuromuscular Reeducation, and Stre ngthening Poor balance - to improve, our physical therapists will perform initial evaluation of pt's status upo n admission and devise an individualized program for Balance Training Inability to transfer - to improve, our physical therapists will perform initial evaluation of pt's s tatus upon admission and devise an individualized program for Bed mobility Need in caregiver upon discharge - to improve, our physical therapists will perform initial evaluatio n of pt's status upon admission and devise an individualized program for Caregiver Training Poor endurance - to improve, our physical therapists will perform initial evaluation of pt's status u yuli admission and devise an individualized program for Endurance Training Gait dysfunction - to improve, our physical therapists will perform initial evaluation of pt's status upon admission and devise an individualized program for Gait Training, and Wheel Chair mobility Need for home safety evaluation - to improve, our physical therapists will perform initial evaluation of pt's status upon admission and devise an individualized program for Home Evaluation New precaution - to improve, our physical therapists will perform initial evaluation of pt's status u yuli admission and devise an individualized program for Patient precaution education Edema - to improve, our physical therapists will perform initial evaluation of pt's status upon admis [place] and devise an individualized program for Elevation Training, and Lymphedema Therapy - Occupational Therapy Weakness - to improve, our occupation therapists will perform initial evaluation of pt's status upon admission and devise an individualized program for Aquatic Therapy, Balance, Endurance, UE ROM, and U E strengthening ADL deficits - to improve, our occupation therapists will perform initial evaluation of pt's status u yuli admission and devise an individualized program for Bathing, Bed mobility, Community Reintegration , Cooking, Dressing, Eating, Fine Motor Skills, Grooming, Homemaking, Kitchen Mobility, Laundry, Manjula ent Education, Safety Awareness, Splinting - Positioning, Transfers(Toilet, Tub, Shower), and Wheel C hair Management Need for home health caregiver - to improve, our occupation therapists will perform initial evaluation of pt's s tatus upon admission and devise an individualized program for Caregiver Training - Diet Type Continue Regular - Diet - Liquid Texture Continue Regular - Tube Feed Continue N/A - Lab Results blood Sugar Check ACHS - Bladder care per protocol - Weight Bearing Precaution WBAT left LE - Skin care per protocol - Diet - Solid Texture Continue Regular - Shower allowing shower for Dementia, TBI, Stroke, or others - Balance for Weakness - Bed mobility for ADL deficits - Cognition - orientation for Dementia - Dressing Status: indep for ADL deficits - Eating for ADL deficits - Grooming Status: indep for ADL deficits - Toilet Transfer Status: indep for ADL deficits - Bed to Chair Transfer SELECT Status: indep for ADL deficits - Hygiene for ADL deficits - Tub Transfer for ADL deficits Status: indep - Shower Transfer for ADL deficits Status: indep - Wheel Chair to Bed Transfer Status: indep for ADL deficits FUNCTIONAL STATUS: UPDATED AT WEEKLY TEAM CONFERENCE - Bladder Same accident frequency: 7-Ind - No accidents in the past 7 days - Bowel Same accident frequency: 7-Ind - No accidents in the past 7 days - Walking Same score based on distance walked: 1(<=50ft) - Wheelchair Same score based on distance traveled: 0(N/A) FUNCTIONAL STATUS: - Self-Care A. Eating sup B. Grooming sup C. Bathing sup D. Dressing - Upper sup E. Dressing - Lower CGA F. Toileting sup - Sphincter Control G: Bladder control Ind H: Bowel control Ind - Transfers Control I. Bed/Chair/Wheelchair Dat J. Toilet Dat K. Tub/Shower ADNO - Locomotion L. Walk/Wheelchair (C) Dat L. Walk/Wheelchair (W) Dat M. Stairs ADNO - Communication N. Comprehension (B) Ind O. Expression (B) Ind - Social Cognition P. Social Interaction Ind Q. Problem Solving Ind R. Memory Ind - Endurance Fair - Balance Fair - Safety Awareness Fair CURRENT FUNC. DEFICITS: Self-Care, Transfers Control, Locomotion, Endurance, Balance, and Safety Awareness SIGNATURE PANEL: (CDT)
--- NOTE | 2018-10-04 15:41 | FAST ---
SHIFT START DATE/TIME: 10/04/2018 07:00 (CDT) SHIFT END DATE/TIME: 10/04/2018 19:00 (CDT) NAME FAITH VANCE DATE OF : 1960 DATE OF ADMISSION: 10/02/2018 19:00 (CDT) PHONE: AGE: 58 N# [id number] GENDER: Male ENCOUNTER PHYSICIAN: Dr. Luis Manuel Corley M.D. 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 EATING: EATING - STEP 1: Does the patient require the assistance of a person or device, or need extra time when eating? Yes. EATING - STEP 2: Does the patient require the assistance of a helper? No, patient only requires an assistive device, O R s/he takes more than reasonable time to eat, OR there is a safety concern, OR s/he requires modifie d food consistency EATING - SCORE: 6-CASPER GROOMING: Comb/brush hair Wash, rinse, and dry face Wash, rinse, and dry hands GROOMING - STEP 1: Does the patient require the assistance of a person or device, or need extra time when grooming? Yes. GROOMING - STEP 2: Does the patient require the assistance of a helper? No. The patient only requires an assistive devic e, OR takes more than reasonable time to groom, OR there is a concern for safety as the patient groom s GROOMING - SCORE: 6-CASPER BATHING: Activity did not occur on this shift BATHING - SCORE: 0-UNK DRESSING - UPPER BODY: T-shirt/pullover shirt (four steps) ARTICLES SCORE Total number of steps: 4 DRESSING - UPPER BODY - STEP 1: Does the patient require help from a person or device, or need extra time when dressing above the james st? No. DRESSING - UPPER BODY - SCORE: 7-IND DRESSING - LOWER BODY: Activity did not occur on this shift ARTICLES SCORE Total number of steps: 0 DRESSING - LOWER BODY - SCORE: 0-UNK TOILETING: TOILETING - STEP 1: Does the patient require the assistance of a person or device, or need extra time with toileting? Yes . TOILETING - STEP 2: Does the patient require the assistance of a helper? Yes. TOILETING - STEP 3: How much assistance does the patient require from the helper? Hands-on assistance from the helper TOILETING - STEP 4: Of the 3 tasks: 1) Adjusting clothing prior to use, 2) Cleansing of perineal area, 3) Adjusting clot betty after use; How many tasks does the patient perform WITHOUT assistance of the helper? Three tasks with steadying assistance from the helper TOILETING - SCORE: 4-MIN BLADDER MANAGEMENT: BLADDER MANAGEMENT - STEP 1: Does the patient control the bladder completely and intentionally without equipment or devices or med ications, and is always continent? Yes. BLADDER MANAGEMENT - SCORE: 7-IND BLADDER MANAGEMENT - FREQUENCY OF ACCIDENTS: BLADDER MANAGEMENT(FA) - STEP 1: How many accidents has the patient had during the current shift? 0 BOWEL MANAGEMENT: Activity did not occur on this shift BOWEL MANAGEMENT - SCORE: 7-IND BOWEL MANAGEMENT - FREQUENCY OF ACCIDENTS: BOWEL MANAGEMENT(FA) - STEP 1: How many accidents has the patient had during the current shift? 0 TRANSFERS: BED, CHAIR, WHEELCHAIR: TRANSFERS: BED, CHAIR, WHEELCHAIR - STEP 1: Does the patient require assistance of a person or device, or need extra time with bed, chair, or whe elchair transfers? Yes. TRANSFERS: BED, CHAIR, WHEELCHAIR - STEP 2: Does the patient require the assistance of a helper? Yes. TRANSFERS: BED, CHAIR, WHEELCHAIR - STEP 3: How much assistance does the patient require from the helper? Lifting of the legs TRANSFERS: BED, CHAIR, WHEELCHAIR - STEP 4: How many legs does the patient require the helper to lift? both legs TRANSFERS: BED, CHAIR, WHEELCHAIR - SCORE: 3-MOD TRANSFERS: TOILET: TRANSFERS: TOILET - STEP 1: Does the patient require the assistance of a person or device, or need extra time with toilet transfe rs? Yes. TRANSFERS: TOILET - STEP 2: Does the patient require the assistance of a helper? Yes. TRANSFERS: TOILET - STEP 3: How much assistance does the patient require from the helper? Patient performs less than half of the transferring tasks TRANSFERS: TOILET - STEP 4: Does the patient require total assistance for the toilet transfer such as the helper doing basically all the lifting? No. TRANSFERS: TOILET - SCORE: 2-MAX TRANSFERS: SHOWER: Activity did not occur on this shift TRANSFERS: SHOWER - SCORE: 0-UNK TRANSFERS: TUB: Activity did not occur on this shift TRANSFERS: TUB - SCORE: 0-UNK LOCOMOTION: WALK: Activity did not occur on this shift LOCOMOTION: WALK - SCORE: 0-UNK LOCOMOTION: WHEELCHAIR: LOCOMOTION: WHEELCHAIR - STEP 1: Does the patient need help to go 150 feet in a wheelchair? Yes. LOCOMOTION: WHEELCHAIR - STEP 2: How much assistance does the patient need from the helper? Only supervision, cuing, or coaxing LOCOMOTION: WHEELCHAIR - SCORE: 5-SUP COMPREHENSION: COMPREHENSION: TYPE: Both COMPREHENSION - STEP 1: Does the patient require help from a person or device, or need extra time to understand complex and a bstract ideas (such as current events, finances, discharge planning, medical issues, relationships, e tc)? No. COMPREHENSION - STEP 2: Does the patient need extra time, require an assistive device (such as glasses for visual comprehensi on or a hearing aid for auditory comprehension) or does s/he have mild difficulty understanding compl ex and abstract information? Yes. COMPREHENSION - SCORE: 6-CASPER EXPRESSION EXPRESSION: TYPE: Both EXPRESSION - STEP 1: Does the patient require help from a person or device, or need extra time expressing complex and abst ract ideas (such as current events, finances, discharge planning, medical issues, relationships, etc) ? No. EXPRESSION - STEP 2: Does the patient need extra time, require an assistive device (such as augmentive communication syste m or a communication board), OR does s/he have mild difficulty expressing complex and abstract ideas (including mild dysarthria or mild word-find problems)? Yes. EXPRESSION - SCORE: 6-CASPER SOCIAL INTERACTION: SOCIAL INTERACTION - STEP 1: Does the patient require a helper to interact with others in social and therapeutic situations? No. SOCIAL INTERACTION - STEP 2: Does the patient need extra time in social situations, OR does s/he interact with staff, other patien ts, and family members ONLY in structured environments, OR does s/he require medication for social in teraction? Yes, patient needs extra time SOCIAL INTERACTION - SCORE: 6-CASPER PROBLEM SOLVING: PROBLEM SOLVING - STEP 1: Does the patient need help from a person or device, or need extra time to solve complex problems such as managing a checking account or confronting interpersonal problems? No. PROBLEM SOLVING - STEP 2: Does the patient require extra time to make decisions or solve problems, OR does s/he have slight dif ficulty reading, initiating, or self-correcting in unfamiliar situations? Yes, patient needs extra ti me. PROBLEM SOLVING - SCORE: 6-CASPER MEMORY: MEMORY - STEP 1: Does the patient need help from a person or device, or need extra time to remember frequently encount ered people, daily routines, and executing requests? No. MEMORY - STEP 2: Does the patient have slight difficulty recognizing frequently encountered people, daily routines, or executing requests without the need for repetition or using self-initiated or environmental cues to remember? Yes. MEMORY - SCORE: 6-CASPER SIGNATURE PANEL: The following modified sections: Eating - Score, Grooming - Score, Bathing - Score, Dressing - Upper Body - Score, Dressing - Lower Body - Score, Toileting - Score, Bladder Management - Score, Bowel Man agement - Score, Transfers: Bed, Chair, Wheelchair - Score, Transfers: Toilet - Score, Transfers: Monica wer - Score, Transfers: Tub - Score, Locomotion: Walk - Score, Locomotion: Wheelchair - Score, Compre hension - Score, Expression - Score, Social Interaction - Score, Problem Solving - Score, Memory - Sc ore were [electronically] signed by Bren Hook C.N.A. on MonOct 04 2018 15:15:04 T-0500 (Centra l Daylight Time)
--- NOTE | 2018-10-04 15:48 | RAD REPORT ---
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 No fracture or joint effusion is observed.
[2018-10-04] MEDS ORDERED: NPH (HUMAN) 100 UNITS/ML INSULIN SQ ONE (18:39)
[2018-10-04] MEDS: DOCUSATE NA/SENNA CONC 1 TAB PO SCH (21:00)
[2018-10-04] MEDS: ATORVASTATIN 80 MG TAB PO SCH (21:04)
[2018-10-04] MEDS: MELATONIN 3 MG TABLET PO PRN (21:04)
--- NOTE | 2018-10-05 05:26 | FAST ---
SHIFT START DATE/TIME: 10/04/2018 19:00 (CDT) SHIFT END DATE/TIME: 10/05/2018 07:00 (CDT) NAME FAITH VANCE DATE OF : 1960 DATE OF ADMISSION: 10/02/2018 19:00 (CDT) PHONE: AGE: 58 N# [id number] GENDER: Male ENCOUNTER PHYSICIAN: Dr. Luis Manuel Corley M.D. 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 EATING: Activity did not occur on this shift EATING - SCORE: 0-UNK GROOMING: Activity did not occur on this shift GROOMING - SCORE: 0-UNK BATHING: Activity did not occur on this shift BATHING - SCORE: 0-UNK DRESSING - UPPER BODY: Activity did not occur on this shift ARTICLES SCORE Total number of steps: 0 DRESSING - UPPER BODY - SCORE: 0-UNK DRESSING - LOWER BODY: Activity did not occur on this shift ARTICLES SCORE Total number of steps: 0 DRESSING - LOWER BODY - SCORE: 0-UNK TOILETING: TOILETING - STEP 2: Does the patient require the assistance of a helper? Yes. TOILETING - STEP 3: How much assistance does the patient require from the helper? Hands-on assistance from the helper TOILETING - STEP 4: Of the 3 tasks: 1) Adjusting clothing prior to use, 2) Cleansing of perineal area, 3) Adjusting clot betty after use; How many tasks does the patient perform WITHOUT assistance of the helper? One task TOILETING - SCORE: 0-UNK BLADDER MANAGEMENT: BLADDER MANAGEMENT - STEP 1: Does the patient control the bladder completely and intentionally without equipment or devices or med ications, and is always continent? No. BLADDER MANAGEMENT - STEP 2: Does the patient require the assistance of a helper? Yes. BLADDER MANAGEMENT - STEP 3: How much assistance does the patient require from the helper? Only set-up of equipment - such as plac ing it within reach of the patient or emptying a device - to maintain either satisfactory voiding pat tern or managing an external device, such as an absorbent pad, ileal device, or catheter BLADDER MANAGEMENT - SCORE: 5-SUP BLADDER MANAGEMENT - FREQUENCY OF ACCIDENTS: BLADDER MANAGEMENT(FA) - STEP 1: How many accidents has the patient had during the current shift? 0 BOWEL MANAGEMENT: Activity did not occur on this shift BOWEL MANAGEMENT - SCORE: 7-IND BOWEL MANAGEMENT - FREQUENCY OF ACCIDENTS: BOWEL MANAGEMENT(FA) - STEP 1: How many accidents has the patient had during the current shift? 0 TRANSFERS: BED, CHAIR, WHEELCHAIR: TRANSFERS: BED, CHAIR, WHEELCHAIR - STEP 1: Does the patient require assistance of a person or device, or need extra time with bed, chair, or whe elchair transfers? Yes. TRANSFERS: BED, CHAIR, WHEELCHAIR - STEP 2: Does the patient require the assistance of a helper? Yes. TRANSFERS: BED, CHAIR, WHEELCHAIR - STEP 3: How much assistance does the patient require from the helper? Steadying/guiding assistance TRANSFERS: BED, CHAIR, WHEELCHAIR - SCORE: 4-MIN TRANSFERS: TOILET: Activity did not occur on this shift TRANSFERS: TOILET - SCORE: 0-UNK TRANSFERS: SHOWER: Activity did not occur on this shift TRANSFERS: SHOWER - SCORE: 0-UNK TRANSFERS: TUB: Activity did not occur on this shift TRANSFERS: TUB - SCORE: 0-UNK LOCOMOTION: WALK: Activity did not occur on this shift LOCOMOTION: WALK - SCORE: 0-UNK LOCOMOTION: WHEELCHAIR: Activity did not occur on this shift LOCOMOTION: WHEELCHAIR - SCORE: 0-UNK COMPREHENSION: COMPREHENSION: TYPE: Both COMPREHENSION - STEP 1: Does the patient require help from a person or device, or need extra time to understand complex and a bstract ideas (such as current events, finances, discharge planning, medical issues, relationships, e tc)? Yes. COMPREHENSION - STEP 2: Does the patient require help to understand questions or statements about basic needs or ideas (such as hunger, thirst, sleep, safety, daily schedule, room location, or discomfort) half or more of the t santos? No. COMPREHENSION - STEP 3: How often does the patient need help to understand directions and conversation about basic needs? Les s than 10% of the time COMPREHENSION - SCORE: 5-SUP EXPRESSION EXPRESSION: TYPE: Both EXPRESSION - STEP 1: Does the patient require help from a person or device, or need extra time expressing complex and abst ract ideas (such as current events, finances, discharge planning, medical issues, relationships, etc) ? Yes. EXPRESSION - STEP 2: Does the patient require help to express basic necessities or ideas (such as hunger, thirst, sleep, s afety, daily schedule, room location, or discomfort) half or more of the time? No. EXPRESSION - STEP 3: How often does the patient need help to express directions and conversation about basic needs? Less t lam 10% of the time EXPRESSION - SCORE: 5-SUP SOCIAL INTERACTION: SOCIAL INTERACTION - STEP 1: Does the patient require a helper to interact with others in social and therapeutic situations? No. SOCIAL INTERACTION - STEP 2: Does the patient need extra time in social situations, OR does s/he interact with staff, other patien ts, and family members ONLY in structured environments, OR does s/he require medication for social in teraction? Yes, patient requires medication for social interaction SOCIAL INTERACTION - SCORE: 6-CASPER PROBLEM SOLVING: PROBLEM SOLVING - STEP 1: Does the patient need help from a person or device, or need extra time to solve complex problems such as managing a checking account or confronting interpersonal problems? Yes. PROBLEM SOLVING - STEP 2: Does the patient solve basic routine problems half or more of the time? Yes. PROBLEM SOLVING - STEP 3: How often does the patient need help to solve basic routine problems? Less than 10% of the time PROBLEM SOLVING - SCORE: 5-SUP MEMORY: MEMORY - STEP 1: Does the patient need help from a person or device, or need extra time to remember frequently encount ered people, daily routines, and executing requests? Yes. MEMORY - STEP 2: How often does the patient need help to remember frequently encountered people, daily routines, and e xecuting requests? Less than 10% of the time MEMORY - SCORE: 5-SUP SIGNATURE PANEL: The following modified sections: Eating - Score, Grooming - Score, Bathing - Score, Dressing - Upper Body - Score, Dressing - Lower Body - Score, Toileting - Score, Bladder Management - Score, Bowel Man agement - Score, Transfers: Bed, Chair, Wheelchair - Score, Transfers: Toilet - Score, Transfers: Monica wer - Score, Transfers: Tub - Score, Locomotion: Walk - Score, Locomotion: Wheelchair - Score, Compre hension - Score, Expression - Score, Social Interaction - Score, Problem Solving - Score, Memory - Sc ore were [electronically] signed by Jessica Riojas RN on MonOct 05 2018 05:25:07 T-0500 (Centra l Daylight Time)
[2018-10-05] MEDS: HYDROCODONE/APAP 5/325 MG TAB PO PRN ×3 (07:27→17:03)
[2018-10-05] MEDS: PANTOPRAZOLE 40MG TABLET PO SCH (07:28)
[2018-10-05] MEDS: LEVOTHYROXINE SOD 0.05 MG TABLET PO SCH (07:28)
[2018-10-05] MEDS: NPH (HUMAN) 100 UNITS/ML INSULIN SQ SCH ×2 (07:29→21:39)
[2018-10-05] MEDS: ENOXAPARIN 40 MG/0.4 ML SQ SCH (07:29)
[2018-10-05] MEDS: INSULIN -REGULAR HUMAN 50 UNIT/0.5 ML ML SQ SCH ×4 (07:30→20:56)
[2018-10-05] MEDS: CLOPIDOGREL 75 MG TABLET PO SCH (08:22)
[2018-10-05] MEDS: FLUDROCORTISONE 0.1 MG TAB PO SCH (08:22)
[2018-10-05] MEDS: VENLAFAXINE HCL 75 MG TABLET PO SCH ×2 (08:22→19:41)
[2018-10-05] MEDS: ASPIRIN EC 81 MG TAB PO SCH (08:22)
[2018-10-05] MEDS: GABAPENTIN 300 MG CAP PO SCH ×3 (08:23→21:40)
[2018-10-05] MEDS: MAGNESIUM OXIDE 400 MG TAB PO SCH ×2 (08:23→19:41)
[2018-10-05] MEDS: METFORMIN ER 500 MG TAB PO SCH (08:23)
[2018-10-05] MEDS: TRAMADOL HCL 50 MG TAB PO PRN ×2 (09:02→15:22)
--- NOTE | 2018-10-05 09:46 | P.RH.PN ---
Estimated Length of Stay: 12 Expected Discharge Date: 10/13/18 Discharge Disposition Plan: Home Family Support: Yes Nursing Home Goal: Mobility, Transfers, Self Care Vital Signs: Last Vital Signs Temp 96.7 F L 10/05/18 06:45 Pulse 72 10/05/18 06:45 Resp 18 10/05/18 06:45 BP 108/69 10/05/18 06:45 Pulse Ox 99 10/05/18 06:45 Laboratory: Laboratory Last Values WBC 6.8 K/uL (4.3-10.9) D 10/03/18 05:52 RBC 4.50 M/uL (4.33-5.43) 10/03/18 05:52 Hgb 13.6 g/dL (13.6-17.9) 10/03/18 05:52 Hct 40.3 % (39.6-49.0) 10/03/18 05:52 MCV 89.5 fL (80-100) 10/03/18 05:52 MCH 30.2 pg (27.0-35.0) 10/03/18 05:52 MCHC 33.7 g/dL (32.0-36.0) 10/03/18 05:52 RDW 13.2 % (12.1-15.2) 10/03/18 05:52 Plt Count 219 K/uL (152-406) D 10/03/18 05:52 MPV 8.7 fL (7.6-11.3) 10/03/18 05:52 Neutrophils % 43.1 % (41.7-73.7) 10/03/18 05:52 Lymphocytes % 41.3 % (15.3-44.8) 10/03/18 05:52 Monocytes % 8.2 % (3.3-12.3) 10/03/18 05:52 Eosinophils % 6.9 % (0-4.4) H 10/03/18 05:52 Basophils % 0.5 % (0-1.3) 10/03/18 05:52 Absolute Neutrophils 2.9 K/uL (1.8-8.0) 10/03/18 05:52 Absolute Lymphocytes 2.8 K/uL (0.7-4.9) 10/03/18 05:52 Absolute Monocytes 0.6 K/uL (0.1-1.3) 10/03/18 05:52 Absolute Eosinophils 0.5 K/uL (0-0.5) 10/03/18 05:52 Absolute Basophils 0.0 K/uL (0-0.5) 10/03/18 05:52 Sodium 140 mmol/L (136-145) 10/03/18 05:52 Potassium 4.6 mmol/L (3.5-5.1) 10/03/18 05:52 Chloride 106 mmol/L (98-107) 10/03/18 05:52 Carbon Dioxide 30 mmol/L (21-32) 10/03/18 05:52 BUN 13 mg/dL (7-18) 10/03/18 05:52 Creatinine 0.78 mg/dL (0.55-1.3) 10/03/18 05:52 Estimated GFR > 90 mL/min (=/>90) 10/03/18 05:52 Glucose 203 mg/dL (74-106) H 10/03/18 05:52 POC Glucose 181 mg/dl (65-120) H 10/05/18 07:26 Calcium 8.9 mg/dL (8.5-10.1) D 10/03/18 05:52 Magnesium 2.0 mg/dL (1.8-2.4) 10/03/18 05:52 Albumin 3.2 g/dL (3.4-5.0) L 10/03/18 05:52 Prealbumin 18.3 mg/dL (20-40) L 10/03/18 05:52 Urine Color Yellow 10/02/18 20:50 Urine Appearance Clear 10/02/18 20:50 Urine pH 5.5 (5.0-7.0) 10/02/18 20:50 Ur Specific [place] >=1.030 (1.005-1.030) 10/02/18 20:50 Urine Ketones Negative (NEG) 10/02/18 20:50 Urine Blood Negative (NEG) 10/02/18 20:50 Urine Nitrite Negative (NEG) 10/02/18 20:50 Urine Bilirubin Negative (NEG) 10/02/18 20:50 Urine Urobilinogen 0.2 mg/dL (0.2-1.0) 10/02/18 20:50 Ur Leukocyte Esterase Negative (NEG) 10/02/18 20:50 Urine RBC <5 /HPF (NONE SEEN) 10/02/18 20:50 Urine WBC <5 /HPF (<5) 10/02/18 20:50 Ur Squamous Epith Cells PAINT [employer] T[employer]ER 10/02/18 20:50 Urine Bacteria <20 /HPF (NONE SEEN) 10/02/18 20:50 Urine Culture Reflexed Not needed 10/02/18 20:50 Urine Glucose 3+ (NEG) H 10/02/18 20:50 Urine Total Protein Negative (NEG) 10/02/18 20:50 Weight: 173 lb 6 oz Wound Present: No Closed Surgical Incision Present: No Physician Update: Labs have been reviewed his glucose 178 to 256, prealbumin 18.3. He is doing well with physical and occupational therapy at contact guard assistance. Medical Issues: DVt Prophylaxis - Lovenox 40mg SQ Daily Pain Issues: Gabapentin 900mg TID. [place] 5/325mg Q4H PRN. Tramadol 50mg Q6H PRN Functional Improvement: pt is participating well in therapy and should progress to meet his functional goals. pt continues to require skilled PT services to meet these goals. Speech Therapy Update: Pt. has mild oropharyngeal dysphagia. He is on a mechanical soft diet with thin liquids. He requires occasional supervision with meals. Pt. is a verbal communicator and is able to make wants/needs known. His speech/language and cognitive functions are not contributing to his ability to return home. Summary: Patient's care plan and long-term goals have been reviewed and revised as necessary. Please see the Rehabilitation Signature page for all necessary signatures.
[2018-10-05] MEDS: LIDOCAINE 5% PATCH TOP SCH (11:57)
--- NOTE | 2018-10-05 15:27 | FAST ---
ENCOUNTER DATE AND TIME: 10/05/2018 08:00 (CDT) NAME FAITH VANCE DATE OF : 1960 DATE OF ADMISSION: 10/02/2018 19:00 (CDT) PHONE: AGE: 58 N# [id number] GENDER: Male ENCOUNTER PHYSICIAN: Dr. Luis Manuel Corley M.D. 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 EATING: Activity did not occur on this shift EATING - SCORE: 0-UNK GROOMING: Activity did not occur on this shift GROOMING - SCORE: 0-UNK BATHING: Activity did not occur on this shift BATHING - SCORE: 0-UNK DRESSING - UPPER BODY: Activity did not occur on this shift Patient is not dressing in public clothing ARTICLES SCORE Total number of steps: 0 DRESSING - UPPER BODY - SCORE: 0-UNK DRESSING - LOWER BODY: Activity did not occur on this shift Patient is not dressing in public clothing ARTICLES SCORE Total number of steps: 0 DRESSING - LOWER BODY - SCORE: 0-UNK TOILETING: Activity did not occur on this shift TOILETING - SCORE: 0-UNK BLADDER MANAGEMENT: Activity did not occur on this shift BLADDER MANAGEMENT - SCORE: 7-IND BOWEL MANAGEMENT: Activity did not occur on this shift BOWEL MANAGEMENT - SCORE: 7-IND TRANSFERS: BED, CHAIR, WHEELCHAIR: TRANSFERS: BED, CHAIR, WHEELCHAIR - STEP 1: Does the patient require assistance of a person or device, or need extra time with bed, chair, or whe elchair transfers? Yes. TRANSFERS: BED, CHAIR, WHEELCHAIR - STEP 2: Does the patient require the assistance of a helper? Yes. TRANSFERS: BED, CHAIR, WHEELCHAIR - STEP 3: How much assistance does the patient require from the helper? Steadying/guiding assistance TRANSFERS: BED, CHAIR, WHEELCHAIR - SCORE: 4-MIN TRANSFERS: TOILET: Activity did not occur on this shift TRANSFERS: TOILET - SCORE: 0-UNK TRANSFERS: SHOWER: Activity did not occur on this shift TRANSFERS: SHOWER - SCORE: 0-UNK TRANSFERS: TUB: Activity did not occur on this shift TRANSFERS: TUB - SCORE: 0-UNK LOCOMOTION: WALK: LOCOMOTION: WALK - STEP 1: Does the patient need help from a person or device, or need extra time to walk 150 feet? Yes. LOCOMOTION: WALK - STEP 2: How much assistance does the patient require to walk a minimum of 150 feet? Only incidental help such as contact guarding or steadying LOCOMOTION: WALK - SCORE: 4-MIN LOCOMOTION: WHEELCHAIR: LOCOMOTION: WHEELCHAIR - STEP 1: Does the patient need help to go 150 feet in a wheelchair? Yes. LOCOMOTION: WHEELCHAIR - STEP 2: How much assistance does the patient need from the helper? Only supervision, cuing, or coaxing LOCOMOTION: WHEELCHAIR - SCORE: 5-SUP LOCOMOTION: STAIRS: Activity did not occur on this shift LOCOMOTION: STAIRS - SCORE: 0-UNK COMPREHENSION: COMPREHENSION - SCORE: 0-UNK EXPRESSION EXPRESSION - SCORE: 0-UNK SOCIAL INTERACTION: SOCIAL INTERACTION - SCORE: 0-UNK PROBLEM SOLVING: PROBLEM SOLVING - SCORE: 0-UNK MEMORY: MEMORY - SCORE: 0-UNK SIGNATURE PANEL: The following modified sections: Transfers: Bed, Chair, Wheelchair - Score, Transfers: Toilet - Score , Locomotion: Walk - Score, Locomotion: Wheelchair - Score, Locomotion: Stairs - Score were [electron raiza] signed by Will Raymundo PTA on MonOct 05 2018 15:26:37 GMT-0500 (Central Daylight Time)
--- NOTE | 2018-10-05 16:31 | FAST ---
SHIFT START DATE/TIME: 10/05/2018 07:00 (CDT) SHIFT END DATE/TIME: 10/05/2018 19:00 (CDT) NAME FAITH VANCE DATE OF : 1960 DATE OF ADMISSION: 10/02/2018 19:00 (CDT) PHONE: AGE: 58 N# [id number] GENDER: Male ENCOUNTER PHYSICIAN: Dr. Luis Manuel Corley M.D. 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 EATING: EATING - STEP 1: Does the patient require the assistance of a person or device, or need extra time when eating? No. EATING - SCORE: 7-IND GROOMING: Activity did not occur on this shift GROOMING - SCORE: 0-UNK BATHING: Activity did not occur on this shift BATHING - SCORE: 0-UNK DRESSING - UPPER BODY: T-shirt/pullover shirt (four steps) ARTICLES SCORE Total number of steps: 4 DRESSING - UPPER BODY - STEP 1: Does the patient require help from a person or device, or need extra time when dressing above the j[address]? Yes. DRESSING - UPPER BODY - STEP 2: Does the patient require the assistance of a helper? No. Patient only requires an assistive device, s uch as a button hook, velcro, or store keeper. OR s/he takes more than reasonable time as s/he dresses the upper body. OR there is a concern for safety when s/he dresses the upper body DRESSING - UPPER BODY - SCORE: 6-CASPER DRESSING - LOWER BODY: Activity did not occur on this shift ARTICLES SCORE Total number of steps: 0 DRESSING - LOWER BODY - SCORE: 0-UNK TOILETING: TOILETING - STEP 1: Does the patient require the assistance of a person or device, or need extra time with toileting? Yes . TOILETING - STEP 2: Does the patient require the assistance of a helper? No. TOILETING - SCORE: 6-CASPER BLADDER MANAGEMENT: BLADDER MANAGEMENT - STEP 1: Does the patient control the bladder completely and intentionally without equipment or devices or med ications, and is always continent? Yes. BLADDER MANAGEMENT - SCORE: 7-IND BLADDER MANAGEMENT - FREQUENCY OF ACCIDENTS: BLADDER MANAGEMENT(FA) - STEP 1: How many accidents has the patient had during the current shift? 0 BOWEL MANAGEMENT: BOWEL MANAGEMENT - STEP 1: Does the patient control bowels completely and intentionally without equipment devices or medications AND is always continent? Yes. BOWEL MANAGEMENT - SCORE: 7-IND BOWEL MANAGEMENT - FREQUENCY OF ACCIDENTS: BOWEL MANAGEMENT(FA) - STEP 1: How many accidents has the patient had during the current shift? 0 TRANSFERS: BED, CHAIR, WHEELCHAIR: TRANSFERS: BED, CHAIR, WHEELCHAIR - STEP 1: Does the patient require assistance of a person or device, or need extra time with bed, chair, or whe elchair transfers? Yes. TRANSFERS: BED, CHAIR, WHEELCHAIR - STEP 2: Does the patient require the assistance of a helper? Yes. TRANSFERS: BED, CHAIR, WHEELCHAIR - STEP 3: How much assistance does the patient require from the helper? Steadying/guiding assistance TRANSFERS: BED, CHAIR, WHEELCHAIR - SCORE: 4-MIN TRANSFERS: TOILET: Activity did not occur on this shift TRANSFERS: TOILET - SCORE: 0-UNK TRANSFERS: SHOWER: Activity did not occur on this shift TRANSFERS: SHOWER - SCORE: 0-UNK TRANSFERS: TUB: Activity did not occur on this shift TRANSFERS: TUB - SCORE: 0-UNK LOCOMOTION: WALK: Activity did not occur on this shift LOCOMOTION: WALK - SCORE: 0-UNK LOCOMOTION: WHEELCHAIR: Activity did not occur on this shift LOCOMOTION: WHEELCHAIR - SCORE: 0-UNK COMPREHENSION: COMPREHENSION - SCORE: 0-UNK EXPRESSION EXPRESSION - SCORE: 0-UNK SOCIAL INTERACTION: SOCIAL INTERACTION - SCORE: 0-UNK PROBLEM SOLVING: PROBLEM SOLVING - SCORE: 0-UNK MEMORY: MEMORY - SCORE: 0-UNK SIGNATURE PANEL: The following modified sections: Eating - Score, Grooming - Score, Bathing - Score, Dressing - Upper Body - Score, Dressing - Lower Body - Score, Toileting - Score, Bladder Management - Score, Bowel Man agement - Score, Transfers: Bed, Chair, Wheelchair - Score, Transfers: Toilet - Score, Transfers: Monica wer - Score, Transfers: Tub - Score, Locomotion: Walk - Score, Locomotion: Wheelchair - Score, Compre hension - Score, Expression - Score, Social Interaction - Score, Problem Solving - Score, Memory - Sc ore were [electronically] signed by Pratibha Grier CNA on MonOct 05 2018 16:30:39 GMT-0500 (Centra l Daylight Time)
[2018-10-05] MEDS: MELATONIN 3 MG TABLET PO PRN (20:00)
[2018-10-05] MEDS: DOCUSATE NA/SENNA CONC 1 TAB PO SCH ×2 (21:00)
[2018-10-05] MEDS: ATORVASTATIN 80 MG TAB PO SCH (21:40)
[2018-10-06] MEDS: TRAMADOL HCL 50 MG TAB PO PRN ×3 (00:41→16:01)
--- NOTE | 2018-10-06 02:19 | FAST ---
SHIFT START DATE/TIME: 10/05/2018 19:00 (CDT) SHIFT END DATE/TIME: 10/06/2018 07:00 (CDT) NAME FAITH VANCE DATE OF : 1960 DATE OF ADMISSION: 10/02/2018 19:00 (CDT) PHONE: AGE: 58 N# [id number] GENDER: Male ENCOUNTER PHYSICIAN: Dr. Luis Manuel Corley M.D. 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 EATING: Activity did not occur on this shift EATING - SCORE: 0-UNK GROOMING: Activity did not occur on this shift GROOMING - SCORE: 0-UNK BATHING: Activity did not occur on this shift BATHING - SCORE: 0-UNK DRESSING - UPPER BODY: Patient is not dressing in public clothing ARTICLES SCORE Total number of steps: 0 DRESSING - UPPER BODY - SCORE: 0-UNK DRESSING - LOWER BODY: Patient is not dressing in public clothing ARTICLES SCORE Total number of steps: 0 DRESSING - LOWER BODY - SCORE: 0-UNK TOILETING: TOILETING - STEP 1: Does the patient require the assistance of a person or device, or need extra time with toileting? Yes . TOILETING - STEP 2: Does the patient require the assistance of a helper? Yes. TOILETING - STEP 3: How much assistance does the patient require from the helper? Hands-on assistance from the helper TOILETING - STEP 4: Of the 3 tasks: 1) Adjusting clothing prior to use, 2) Cleansing of perineal area, 3) Adjusting clot betty after use; How many tasks does the patient perform WITHOUT assistance of the helper? Three tasks with steadying assistance from the helper TOILETING - SCORE: 4-MIN BLADDER MANAGEMENT: BLADDER MANAGEMENT - STEP 1: Does the patient control the bladder completely and intentionally without equipment or devices or med ications, and is always continent? No. BLADDER MANAGEMENT - STEP 2: Does the patient require the assistance of a helper? Yes. BLADDER MANAGEMENT - STEP 3: How much assistance does the patient require from the helper? Only set-up of equipment - such as plac ing it within reach of the patient or emptying a device - to maintain either satisfactory voiding pat tern or managing an external device, such as an absorbent pad, ileal device, or catheter BLADDER MANAGEMENT - SCORE: 5-SUP BOWEL MANAGEMENT: Activity did not occur on this shift BOWEL MANAGEMENT - SCORE: 7-IND TRANSFERS: BED, CHAIR, WHEELCHAIR: TRANSFERS: BED, CHAIR, WHEELCHAIR - STEP 1: Does the patient require assistance of a person or device, or need extra time with bed, chair, or whe elchair transfers? Yes. TRANSFERS: BED, CHAIR, WHEELCHAIR - STEP 2: Does the patient require the assistance of a helper? Yes. TRANSFERS: BED, CHAIR, WHEELCHAIR - STEP 3: How much assistance does the patient require from the helper? Steadying/guiding assistance TRANSFERS: BED, CHAIR, WHEELCHAIR - SCORE: 4-MIN TRANSFERS: TOILET: Activity did not occur on this shift TRANSFERS: TOILET - SCORE: 0-UNK TRANSFERS: SHOWER: Activity did not occur on this shift TRANSFERS: SHOWER - SCORE: 0-UNK TRANSFERS: TUB: Activity did not occur on this shift TRANSFERS: TUB - SCORE: 0-UNK LOCOMOTION: WALK: Activity did not occur on this shift LOCOMOTION: WALK - SCORE: 0-UNK LOCOMOTION: WHEELCHAIR: Activity did not occur on this shift LOCOMOTION: WHEELCHAIR - SCORE: 0-UNK COMPREHENSION: COMPREHENSION: TYPE: Both COMPREHENSION - STEP 1: Does the patient require help from a person or device, or need extra time to understand complex and a bstract ideas (such as current events, finances, discharge planning, medical issues, relationships, e tc)? No. COMPREHENSION - STEP 2: Does the patient need extra time, require an assistive device (such as glasses for visual comprehensi on or a hearing aid for auditory comprehension) or does s/he have mild difficulty understanding compl ex and abstract information? Yes. COMPREHENSION - SCORE: 6-CASPER EXPRESSION EXPRESSION: TYPE: Both EXPRESSION - STEP 1: Does the patient require help from a person or device, or need extra time expressing complex and abst ract ideas (such as current events, finances, discharge planning, medical issues, relationships, etc) ? No. EXPRESSION - STEP 2: Does the patient need extra time, require an assistive device (such as augmentive communication syste m or a communication board), OR does s/he have mild difficulty expressing complex and abstract ideas (including mild dysarthria or mild word-find problems)? Yes. EXPRESSION - SCORE: 6-CASPER SOCIAL INTERACTION: SOCIAL INTERACTION - STEP 1: Does the patient require a helper to interact with others in social and therapeutic situations? No. SOCIAL INTERACTION - STEP 2: Does the patient need extra time in social situations, OR does s/he interact with staff, other patien ts, and family members ONLY in structured environments, OR does s/he require medication for social in teraction? Yes, patient needs extra time SOCIAL INTERACTION - SCORE: 6-CASPER PROBLEM SOLVING: PROBLEM SOLVING - STEP 1: Does the patient need help from a person or device, or need extra time to solve complex problems such as managing a checking account or confronting interpersonal problems? No. PROBLEM SOLVING - STEP 2: Does the patient require extra time to make decisions or solve problems, OR does s/he have slight dif ficulty reading, initiating, or self-correcting in unfamiliar situations? Yes, patient needs extra ti me. PROBLEM SOLVING - SCORE: 6-CASPER MEMORY: MEMORY - STEP 1: Does the patient need help from a person or device, or need extra time to remember frequently encount ered people, daily routines, and executing requests? No. MEMORY - STEP 2: Does the patient have slight difficulty recognizing frequently encountered people, daily routines, or executing requests without the need for repetition or using self-initiated or environmental cues to remember? Yes. MEMORY - SCORE: 6-CASPER
[2018-10-06] MEDS: HYDROCODONE/APAP 5/325 MG TAB PO PRN ×3 (05:36→20:59)
[2018-10-06] MEDS: ENOXAPARIN 40 MG/0.4 ML SQ SCH (07:23)
[2018-10-06] MEDS: LIDOCAINE 5% PATCH TOP SCH (07:23)
[2018-10-06] MEDS: NPH (HUMAN) 100 UNITS/ML INSULIN SQ SCH ×2 (07:24→20:59)
[2018-10-06] MEDS: PANTOPRAZOLE 40MG TABLET PO SCH (07:25)
[2018-10-06] MEDS: LEVOTHYROXINE SOD 0.05 MG TABLET PO SCH (07:25)
[2018-10-06] MEDS: INSULIN -REGULAR HUMAN 50 UNIT/0.5 ML ML SQ SCH ×4 (08:11→21:38)
[2018-10-06] MEDS: FLUDROCORTISONE 0.1 MG TAB PO SCH (08:38)
[2018-10-06] MEDS: METFORMIN ER 500 MG TAB PO SCH (08:38)
[2018-10-06] MEDS: GABAPENTIN 300 MG CAP PO SCH ×3 (08:39→20:58)
[2018-10-06] MEDS: VENLAFAXINE HCL 75 MG TABLET PO SCH ×2 (08:39→20:58)
[2018-10-06] MEDS: ASPIRIN EC 81 MG TAB PO SCH (08:40)
[2018-10-06] MEDS: MAGNESIUM OXIDE 400 MG TAB PO SCH ×2 (08:40→20:58)
[2018-10-06] MEDS: CLOPIDOGREL 75 MG TABLET PO SCH (08:40)
--- NOTE | 2018-10-06 08:52 | FAST ---
SHIFT START DATE/TIME: 10/06/2018 07:00 (CDT) SHIFT END DATE/TIME: 10/06/2018 19:00 (CDT) NAME FAITH VANCE DATE OF : 1960 DATE OF ADMISSION: 10/02/2018 19:00 (CDT) PHONE: AGE: 58 N# [id number] GENDER: Male ENCOUNTER PHYSICIAN: Dr. Luis Manuel Corley M.D. 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 EATING: EATING - STEP 1: Does the patient require the assistance of a person or device, or need extra time when eating? Yes. EATING - STEP 2: Does the patient require the assistance of a helper? No, patient only requires an assistive device, O R s/he takes more than reasonable time to eat, OR there is a safety concern, OR s/he requires modifie d food consistency EATING - SCORE: 6-CASPER GROOMING: Comb/brush hair Wash, rinse, and dry face Wash, rinse, and dry hands GROOMING - STEP 1: Does the patient require the assistance of a person or device, or need extra time when grooming? Yes. GROOMING - STEP 2: Does the patient require the assistance of a helper? No. The patient only requires an assistive devic e, OR takes more than reasonable time to groom, OR there is a concern for safety as the patient groom s GROOMING - SCORE: 6-CASPER BATHING: Activity did not occur on this shift BATHING - SCORE: 0-UNK DRESSING - UPPER BODY: Activity did not occur on this shift ARTICLES SCORE Total number of steps: 0 DRESSING - UPPER BODY - SCORE: 0-UNK DRESSING - LOWER BODY: Activity did not occur on this shift ARTICLES SCORE Total number of steps: 0 DRESSING - LOWER BODY - SCORE: 0-UNK TOILETING: TOILETING - STEP 1: Does the patient require the assistance of a person or device, or need extra time with toileting? Yes . TOILETING - STEP 2: Does the patient require the assistance of a helper? Yes. TOILETING - STEP 3: How much assistance does the patient require from the helper? Hands-on assistance from the helper TOILETING - STEP 4: Of the 3 tasks: 1) Adjusting clothing prior to use, 2) Cleansing of perineal area, 3) Adjusting clot betty after use; How many tasks does the patient perform WITHOUT assistance of the helper? Three tasks with steadying assistance from the helper TOILETING - SCORE: 4-MIN BLADDER MANAGEMENT: BLADDER MANAGEMENT - STEP 1: Does the patient control the bladder completely and intentionally without equipment or devices or med ications, and is always continent? No. BLADDER MANAGEMENT - STEP 2: Does the patient require the assistance of a helper? No, patient requires and independently uses an a ssistive device, such as a urinal, bedpan, bedside commode, catheter, absorbent pad, or collecting de vice BLADDER MANAGEMENT - SCORE: 6-CASPER BOWEL MANAGEMENT: Activity did not occur on this shift BOWEL MANAGEMENT - SCORE: 7-IND TRANSFERS: BED, CHAIR, WHEELCHAIR: TRANSFERS: BED, CHAIR, WHEELCHAIR - STEP 1: Does the patient require assistance of a person or device, or need extra time with bed, chair, or whe elchair transfers? Yes. TRANSFERS: BED, CHAIR, WHEELCHAIR - STEP 2: Does the patient require the assistance of a helper? Yes. TRANSFERS: BED, CHAIR, WHEELCHAIR - STEP 3: How much assistance does the patient require from the helper? Steadying/guiding assistance TRANSFERS: BED, CHAIR, WHEELCHAIR - SCORE: 4-MIN TRANSFERS: TOILET: TRANSFERS: TOILET - STEP 1: Does the patient require the assistance of a person or device, or need extra time with toilet transfe rs? Yes. TRANSFERS: TOILET - STEP 2: Does the patient require the assistance of a helper? Yes. TRANSFERS: TOILET - STEP 3: How much assistance does the patient require from the helper? Patient performs half or more of the tr ansferring tasks TRANSFERS: TOILET - STEP 4: Does the patient need only incidental help such as contact guard or steadying during toilet transfer? No. Patient needs more than incidental help TRANSFERS: TOILET - SCORE: 3-MOD TRANSFERS: SHOWER: Activity did not occur on this shift TRANSFERS: SHOWER - SCORE: 0-UNK TRANSFERS: TUB: Activity did not occur on this shift TRANSFERS: TUB - SCORE: 0-UNK LOCOMOTION: WALK: Activity did not occur on this shift LOCOMOTION: WALK - SCORE: 0-UNK LOCOMOTION: WHEELCHAIR: Activity did not occur on this shift LOCOMOTION: WHEELCHAIR - SCORE: 0-UNK COMPREHENSION: COMPREHENSION: TYPE: Both COMPREHENSION - STEP 1: Does the patient require help from a person or device, or need extra time to understand complex and a bstract ideas (such as current events, finances, discharge planning, medical issues, relationships, e tc)? No. COMPREHENSION - STEP 2: Does the patient need extra time, require an assistive device (such as glasses for visual comprehensi on or a hearing aid for auditory comprehension) or does s/he have mild difficulty understanding compl ex and abstract information? Yes. COMPREHENSION - SCORE: 6-CASPER EXPRESSION EXPRESSION: TYPE: Both EXPRESSION - STEP 1: Does the patient require help from a person or device, or need extra time expressing complex and abst ract ideas (such as current events, finances, discharge planning, medical issues, relationships, etc) ? No. EXPRESSION - STEP 2: Does the patient need extra time, require an assistive device (such as augmentive communication syste m or a communication board), OR does s/he have mild difficulty expressing complex and abstract ideas (including mild dysarthria or mild word-find problems)? Yes. EXPRESSION - SCORE: 6-CASPER SOCIAL INTERACTION: SOCIAL INTERACTION - STEP 1: Does the patient require a helper to interact with others in social and therapeutic situations? No. SOCIAL INTERACTION - STEP 2: Does the patient need extra time in social situations, OR does s/he interact with staff, other patien ts, and family members ONLY in structured environments, OR does s/he require medication for social in teraction? Yes, patient needs extra time SOCIAL INTERACTION - SCORE: 6-CASPER PROBLEM SOLVING: PROBLEM SOLVING - STEP 1: Does the patient need help from a person or device, or need extra time to solve complex problems such as managing a checking account or confronting interpersonal problems? No. PROBLEM SOLVING - STEP 2: Does the patient require extra time to make decisions or solve problems, OR does s/he have slight dif ficulty reading, initiating, or self-correcting in unfamiliar situations? Yes, patient needs extra ti me. PROBLEM SOLVING - SCORE: 6-CASPER MEMORY: MEMORY - STEP 1: Does the patient need help from a person or device, or need extra time to remember frequently encount ered people, daily routines, and executing requests? No. MEMORY - STEP 2: Does the patient have slight difficulty recognizing frequently encountered people, daily routines, or executing requests without the need for repetition or using self-initiated or environmental cues to remember? Yes. MEMORY - SCORE: 6-CASPER SIGNATURE PANEL: The following modified sections: Eating - Score, Grooming - Score, Bathing - Score, Dressing - Upper Body - Score, Dressing - Lower Body - Score, Toileting - Score, Bladder Management - Score, Bowel Man agement - Score, Transfers: Bed, Chair, Wheelchair - Score, Transfers: Toilet - Score, Transfers: Monica wer - Score, Transfers: Tub - Score, Locomotion: Walk - Score, Locomotion: Wheelchair - Score, Compre hension - Score, Expression - Score, Social Interaction - Score, Problem Solving - Score, Memory - Sc ore were [electronically] signed by Mayco Kirkland on Sat Oct 06 2018 08:52:36 GMT-0500 (Central Daylight Time)
--- NOTE | 2018-10-06 10:09 | FAST ---
ENCOUNTER DATE AND TIME: 10/05/2018 08:00 (CDT) NAME FAITH VANCE DATE OF : 1960 DATE OF ADMISSION: 10/02/2018 19:00 (CDT) PHONE: AGE: 58 N# [id number] GENDER: Male ENCOUNTER PHYSICIAN: Dr. Luis Manuel Corley M.D. 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 EATING: EATING - STEP 1: Does the patient require the assistance of a person or device, or need extra time when eating? No. EATING - SCORE: 7-IND GROOMING: Comb/brush hair Wash, rinse, and dry face Wash, rinse, and dry hands GROOMING - STEP 1: Does the patient require the assistance of a person or device, or need extra time when grooming? No. GROOMING - SCORE: 7-IND BATHING: Abdomen Buttocks Chest Left arm Left lower leg and foot Left upper leg Perineal area Right arm Right lower leg and foot Right upper leg BATHING - STEP 1: Does the patient require the assistance of a person or device, or need extra time when bathing? Yes. BATHING - STEP 2: Does the patient require the assistance of a helper? Yes. BATHING - STEP 3: How much assistance does the patient require from the helper? Only supervision, cuing, coaxing, instr uctions, encouragement BATHING - SCORE: 5-SUP DRESSING - UPPER BODY: T-shirt/pullover shirt (four steps) ARTICLES SCORE Total number of steps: 4 DRESSING - UPPER BODY - STEP 1: Does the patient require help from a person or device, or need extra time when dressing above the [address]? No. DRESSING - UPPER BODY - SCORE: 7-IND DRESSING - LOWER BODY: Elastic waist pants (three steps) Slip-on shoe - Left foot (one step) Slip-on shoe - Right foot (one step) Sock - Left foot (one step) Sock - Right foot (one step) Underwear (three steps) ARTICLES SCORE Total number of steps: 10 DRESSING - LOWER BODY - STEP 1: Does the patient require help from a person or device, or need extra time when dressing below the [address]? Yes. DRESSING - LOWER BODY - STEP 2: Does the patient require the assistance of a helper? No. Patient requires an assistive device such as a impregnator and drier. OR s/he takes more than reasonable time as s/he dresses the lower body, OR there is a con cern for safety when s/he dresses the lower body DRESSING - LOWER BODY - SCORE: 6-CASPER TOILETING: Activity did not occur on this shift TOILETING - SCORE: 0-UNK BLADDER MANAGEMENT: Activity did not occur on this shift BLADDER MANAGEMENT - SCORE: 7-IND BOWEL MANAGEMENT: Activity did not occur on this shift BOWEL MANAGEMENT - SCORE: 7-IND TRANSFERS: BED, CHAIR, WHEELCHAIR: Activity did not occur on this shift TRANSFERS: BED, CHAIR, WHEELCHAIR - SCORE: 0-UNK TRANSFERS: TOILET: Activity did not occur on this shift TRANSFERS: TOILET - SCORE: 0-UNK TRANSFERS: SHOWER: TRANSFERS: SHOWER - STEP 1: Does the patient require the assistance of a person or device, or need extra time with shower transfe rs? Yes. TRANSFERS: SHOWER - STEP 2: Does the patient require the assistance of a helper? No. The patient only uses an assistive device, t akes more than reasonable time, OR there is a concern for safety when s/he performs transfers. TRANSFERS: SHOWER - SCORE: 6-CASPER TRANSFERS: TUB: Activity did not occur on this shift TRANSFERS: TUB - SCORE: 0-UNK LOCOMOTION: WALK: Activity did not occur on this shift LOCOMOTION: WALK - SCORE: 0-UNK LOCOMOTION: WHEELCHAIR: Activity did not occur on this shift LOCOMOTION: WHEELCHAIR - SCORE: 0-UNK LOCOMOTION: STAIRS: Activity did not occur on this shift LOCOMOTION: STAIRS - SCORE: 0-UNK COMPREHENSION: COMPREHENSION: TYPE: Both COMPREHENSION - STEP 1: Does the patient require help from a person or device, or need extra time to understand complex and a bstract ideas (such as current events, finances, discharge planning, medical issues, relationships, e tc)? No. COMPREHENSION - STEP 2: Does the patient need extra time, require an assistive device (such as glasses for visual comprehensi on or a hearing aid for auditory comprehension) or does s/he have mild difficulty understanding compl ex and abstract information? No. COMPREHENSION - SCORE: 7-IND EXPRESSION EXPRESSION: TYPE: Both EXPRESSION - STEP 1: Does the patient require help from a person or device, or need extra time expressing complex and abst ract ideas (such as current events, finances, discharge planning, medical issues, relationships, etc) ? No. EXPRESSION - STEP 2: Does the patient need extra time, require an assistive device (such as augmentive communication syste m or a communication board), OR does s/he have mild difficulty expressing complex and abstract ideas (including mild dysarthria or mild word-find problems)? No. EXPRESSION - SCORE: 7-IND SOCIAL INTERACTION: SOCIAL INTERACTION - STEP 1: Does the patient require a helper to interact with others in social and therapeutic situations? No. SOCIAL INTERACTION - STEP 2: Does the patient need extra time in social situations, OR does s/he interact with staff, other patien ts, and family members ONLY in structured environments, OR does s/he require medication for social in teraction? No. SOCIAL INTERACTION - SCORE: 7-IND PROBLEM SOLVING: PROBLEM SOLVING - STEP 1: Does the patient need help from a person or device, or need extra time to solve complex problems such as managing a checking account or confronting interpersonal problems? No. PROBLEM SOLVING - STEP 2: Does the patient require extra time to make decisions or solve problems, OR does s/he have slight dif ficulty reading, initiating, or self-correcting in unfamiliar situations? No. PROBLEM SOLVING - SCORE: 7-IND MEMORY: MEMORY - STEP 1: Does the patient need help from a person or device, or need extra time to remember frequently encount ered people, daily routines, and executing requests? No. MEMORY - STEP 2: Does the patient have slight difficulty recognizing frequently encountered people, daily routines, or executing requests without the need for repetition or using self-initiated or environmental cues to remember? No. MEMORY - SCORE: 7-IND SIGNATURE PANEL: The following modified sections: Eating - Score, Grooming - Score, Bathing - Score, Dressing - Upper Body - Score, Dressing - Lower Body - Score, Toileting - Score, Transfers: Bed, Chair, Wheelchair - S core, Transfers: Toilet - Score, Transfers: Shower - Score, Transfers: Tub - Score, Comprehension - S core, Expression - Score, Social Interaction - Score, Problem Solving - Score, Memory - Score were [e lectronically] signed by Diya Correa OT on Sat Oct 06 2018 10:08:06 T-0500 ([facility] Day[facility])
[2018-10-06] MEDS: DOCUSATE NA/SENNA CONC 1 TAB PO SCH (20:56)
[2018-10-06] MEDS: ATORVASTATIN 80 MG TAB PO SCH (20:58)
[2018-10-06] MEDS: MELATONIN 3 MG TABLET PO PRN (20:59)
--- NOTE | 2018-10-07 01:17 | FAST ---
SHIFT START DATE/TIME: 10/06/2018 19:00 (CDT) SHIFT END DATE/TIME: 10/07/2018 07:00 (CDT) NAME FAITH VANCE DATE OF : 1960 DATE OF ADMISSION: 10/02/2018 19:00 (CDT) PHONE: AGE: 58 N# [id number] GENDER: Male ENCOUNTER PHYSICIAN: Dr. Luis Manuel Corley M.D. 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 EATING: Activity did not occur on this shift EATING - SCORE: 0-UNK GROOMING: Activity did not occur on this shift GROOMING - SCORE: 0-UNK BATHING: Activity did not occur on this shift BATHING - SCORE: 0-UNK DRESSING - UPPER BODY: Activity did not occur on this shift ARTICLES SCORE Total number of steps: 0 DRESSING - UPPER BODY - SCORE: 0-UNK DRESSING - LOWER BODY: Activity did not occur on this shift ARTICLES SCORE Total number of steps: 0 DRESSING - LOWER BODY - SCORE: 0-UNK TOILETING: TOILETING - STEP 1: Does the patient require the assistance of a person or device, or need extra time with toileting? Yes . TOILETING - STEP 2: Does the patient require the assistance of a helper? Yes. TOILETING - STEP 3: How much assistance does the patient require from the helper? Only supervision TOILETING - SCORE: 5-SUP BLADDER MANAGEMENT: BLADDER MANAGEMENT - STEP 1: Does the patient control the bladder completely and intentionally without equipment or devices or med ications, and is always continent? Yes. BLADDER MANAGEMENT - SCORE: 7-IND BOWEL MANAGEMENT: Activity did not occur on this shift BOWEL MANAGEMENT - SCORE: 7-IND TRANSFERS: BED, CHAIR, WHEELCHAIR: TRANSFERS: BED, CHAIR, WHEELCHAIR - STEP 1: Does the patient require assistance of a person or device, or need extra time with bed, chair, or whe elchair transfers? Yes. TRANSFERS: BED, CHAIR, WHEELCHAIR - STEP 2: Does the patient require the assistance of a helper? Yes. TRANSFERS: BED, CHAIR, WHEELCHAIR - STEP 3: How much assistance does the patient require from the helper? Only supervision TRANSFERS: BED, CHAIR, WHEELCHAIR - SCORE: 5-SUP TRANSFERS: TOILET: TRANSFERS: TOILET - STEP 1: Does the patient require the assistance of a person or device, or need extra time with toilet transfe rs? Yes. TRANSFERS: TOILET - STEP 2: Does the patient require the assistance of a helper? Yes. TRANSFERS: TOILET - STEP 3: How much assistance does the patient require from the helper? Patient performs half or more of the tr ansferring tasks TRANSFERS: TOILET - STEP 4: Does the patient need only incidental help such as contact guard or steadying during toilet transfer? Yes. TRANSFERS: TOILET - SCORE: 4-MIN TRANSFERS: SHOWER: Activity did not occur on this shift TRANSFERS: SHOWER - SCORE: 0-UNK TRANSFERS: TUB: Activity did not occur on this shift TRANSFERS: TUB - SCORE: 0-UNK LOCOMOTION: WALK: Activity did not occur on this shift LOCOMOTION: WALK - SCORE: 0-UNK LOCOMOTION: WHEELCHAIR: Activity did not occur on this shift LOCOMOTION: WHEELCHAIR - SCORE: 0-UNK COMPREHENSION: COMPREHENSION: TYPE: Both COMPREHENSION - STEP 1: Does the patient require help from a person or device, or need extra time to understand complex and a bstract ideas (such as current events, finances, discharge planning, medical issues, relationships, e tc)? No. COMPREHENSION - STEP 2: Does the patient need extra time, require an assistive device (such as glasses for visual comprehensi on or a hearing aid for auditory comprehension) or does s/he have mild difficulty understanding compl ex and abstract information? No. COMPREHENSION - SCORE: 7-IND EXPRESSION EXPRESSION: TYPE: Both EXPRESSION - STEP 1: Does the patient require help from a person or device, or need extra time expressing complex and abst ract ideas (such as current events, finances, discharge planning, medical issues, relationships, etc) ? No. EXPRESSION - STEP 2: Does the patient need extra time, require an assistive device (such as augmentive communication syste m or a communication board), OR does s/he have mild difficulty expressing complex and abstract ideas (including mild dysarthria or mild word-find problems)? No. EXPRESSION - SCORE: 7-IND SOCIAL INTERACTION: SOCIAL INTERACTION - STEP 1: Does the patient require a helper to interact with others in social and therapeutic situations? No. SOCIAL INTERACTION - STEP 2: Does the patient need extra time in social situations, OR does s/he interact with staff, other patien ts, and family members ONLY in structured environments, OR does s/he require medication for social in teraction? No. SOCIAL INTERACTION - SCORE: 7-IND PROBLEM SOLVING: Patient requires bed/chair alarms due to attempts to get up unassisted when helper is needed. PROBLEM SOLVING - STEP 1: How often do the bed/chair alarms go off? Occasionally - the alarms go off about 25% or less PROBLEM SOLVING - SCORE: 4-MIN MEMORY: MEMORY - STEP 1: How often do the bed/chair alarms go off? Occasionally - the alarms go off about 25% of the time or l ess MEMORY - SCORE: 4-MIN SIGNATURE PANEL: The following modified sections: Eating - Score, Grooming - Score, Bathing - Score, Dressing - Upper Body - Score, Dressing - Lower Body - Score, Toileting - Score, Bladder Management - Score, Bowel Man agement - Score, Transfers: Bed, Chair, Wheelchair - Score, Transfers: Toilet - Score, Transfers: Monica wer - Score, Transfers: Tub - Score, Locomotion: Walk - Score, Locomotion: Wheelchair - Score, Compre hension - Score, Expression - Score, Social Interaction - Score, Problem Solving - Score, Memory - Sc ore were [electronically] signed by Cara Roberts CNA on MonOct 07 2018 01:16:17 T-0500 ([place] Da [place] Time)
[2018-10-07] MEDS: TRAMADOL HCL 50 MG TAB PO PRN ×3 (02:52→19:32)
[2018-10-07] MEDS: ENOXAPARIN 40 MG/0.4 ML SQ SCH (06:47)
[2018-10-07] MEDS: PANTOPRAZOLE 40MG TABLET PO SCH (06:48)
[2018-10-07] MEDS: LEVOTHYROXINE SOD 0.05 MG TABLET PO SCH (06:48)
[2018-10-07] MEDS: LIDOCAINE 5% PATCH TOP SCH (06:48)
[2018-10-07] MEDS: HYDROCODONE/APAP 5/325 MG TAB PO PRN ×2 (06:48→16:59)
[2018-10-07] MEDS: INSULIN -REGULAR HUMAN 50 UNIT/0.5 ML ML SQ SCH ×4 (07:30→21:23)
[2018-10-07] MEDS: NPH (HUMAN) 100 UNITS/ML INSULIN SQ SCH ×2 (08:20→20:24)
[2018-10-07] MEDS: METFORMIN ER 500 MG TAB PO SCH (08:21)
[2018-10-07] MEDS: MAGNESIUM OXIDE 400 MG TAB PO SCH ×2 (08:21→19:32)
[2018-10-07] MEDS: ASPIRIN EC 81 MG TAB PO SCH (08:21)
[2018-10-07] MEDS: GABAPENTIN 300 MG CAP PO SCH ×3 (08:21→20:23)
[2018-10-07] MEDS: FLUDROCORTISONE 0.1 MG TAB PO SCH (08:22)
[2018-10-07] MEDS: CLOPIDOGREL 75 MG TABLET PO SCH (08:22)
[2018-10-07] MEDS: VENLAFAXINE HCL 75 MG TABLET PO SCH ×2 (08:22→19:32)
--- NOTE | 2018-10-07 10:53 | FAST ---
SHIFT START DATE/TIME: 10/07/2018 07:00 (CDT) SHIFT END DATE/TIME: 10/07/2018 19:00 (CDT) NAME FAITH VANCE DATE OF : 1960 DATE OF ADMISSION: 10/02/2018 19:00 (CDT) PHONE: AGE: 58 N# [id number] GENDER: Male ENCOUNTER PHYSICIAN: Dr. Luis Manuel Corley M.D. 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 EATING: EATING - STEP 1: Does the patient require the assistance of a person or device, or need extra time when eating? Yes. EATING - STEP 2: Does the patient require the assistance of a helper? Yes. EATING - STEP 3: Does the patient perform half or more of the eating tasks? Yes. EATING - STEP 4: Does the patient need only supervision, cuing, coaxing OR help to apply an orthosis OR help to cut fo od, open containers, pour liquids, or butter bread? Yes. EATING - SCORE: 5-SUP GROOMING: Comb/brush hair Oral care Wash, rinse, and dry face Wash, rinse, and dry hands GROOMING - STEP 1: Does the patient require the assistance of a person or device, or need extra time when grooming? Yes. GROOMING - STEP 2: Does the patient require the assistance of a helper? Yes. GROOMING - STEP 3: How much assistance does the patient require from the helper? Only prior equipment preparation/set up from the helper GROOMING - SCORE: 5-SUP BATHING: Activity did not occur on this shift BATHING - SCORE: 0-UNK DRESSING - UPPER BODY: Activity did not occur on this shift ARTICLES SCORE Total number of steps: 0 DRESSING - UPPER BODY - SCORE: 0-UNK DRESSING - LOWER BODY: Activity did not occur on this shift ARTICLES SCORE Total number of steps: 0 DRESSING - LOWER BODY - SCORE: 0-UNK TOILETING: TOILETING - STEP 1: Does the patient require the assistance of a person or device, or need extra time with toileting? Yes . TOILETING - STEP 2: Does the patient require the assistance of a helper? Yes. TOILETING - STEP 3: How much assistance does the patient require from the helper? Hands-on assistance from the helper TOILETING - STEP 4: Of the 3 tasks: 1) Adjusting clothing prior to use, 2) Cleansing of perineal area, 3) Adjusting clot betty after use; How many tasks does the patient perform WITHOUT assistance of the helper? Two tasks TOILETING - SCORE: 3-MOD BLADDER MANAGEMENT: BLADDER MANAGEMENT - STEP 1: Does the patient control the bladder completely and intentionally without equipment or devices or med ications, and is always continent? No. BLADDER MANAGEMENT - STEP 2: Does the patient require the assistance of a helper? No, patient requires and independently uses an a ssistive device, such as a urinal, bedpan, bedside commode, catheter, absorbent pad, or collecting de vice BLADDER MANAGEMENT - SCORE: 6-CASPER BOWEL MANAGEMENT: Activity did not occur on this shift BOWEL MANAGEMENT - SCORE: 7-IND TRANSFERS: BED, CHAIR, WHEELCHAIR: TRANSFERS: BED, CHAIR, WHEELCHAIR - STEP 1: Does the patient require assistance of a person or device, or need extra time with bed, chair, or whe elchair transfers? Yes. TRANSFERS: BED, CHAIR, WHEELCHAIR - STEP 2: Does the patient require the assistance of a helper? Yes. TRANSFERS: BED, CHAIR, WHEELCHAIR - STEP 3: How much assistance does the patient require from the helper? Steadying/guiding assistance TRANSFERS: BED, CHAIR, WHEELCHAIR - SCORE: 4-MIN TRANSFERS: TOILET: TRANSFERS: TOILET - STEP 1: Does the patient require the assistance of a person or device, or need extra time with toilet transfe rs? Yes. TRANSFERS: TOILET - STEP 2: Does the patient require the assistance of a helper? Yes. TRANSFERS: TOILET - STEP 3: How much assistance does the patient require from the helper? Patient performs half or more of the tr ansferring tasks TRANSFERS: TOILET - STEP 4: Does the patient need only incidental help such as contact guard or steadying during toilet transfer? Yes. TRANSFERS: TOILET - SCORE: 4-MIN TRANSFERS: SHOWER: Activity did not occur on this shift TRANSFERS: SHOWER - SCORE: 0-UNK TRANSFERS: TUB: Activity did not occur on this shift TRANSFERS: TUB - SCORE: 0-UNK LOCOMOTION: WALK: Activity did not occur on this shift LOCOMOTION: WALK - SCORE: 0-UNK LOCOMOTION: WHEELCHAIR: Activity did not occur on this shift LOCOMOTION: WHEELCHAIR - SCORE: 0-UNK COMPREHENSION: COMPREHENSION: TYPE: Both COMPREHENSION - STEP 1: Does the patient require help from a person or device, or need extra time to understand complex and a bstract ideas (such as current events, finances, discharge planning, medical issues, relationships, e tc)? No. COMPREHENSION - STEP 2: Does the patient need extra time, require an assistive device (such as glasses for visual comprehensi on or a hearing aid for auditory comprehension) or does s/he have mild difficulty understanding compl ex and abstract information? Yes. COMPREHENSION - SCORE: 6-CASPER EXPRESSION EXPRESSION: TYPE: Both EXPRESSION - STEP 1: Does the patient require help from a person or device, or need extra time expressing complex and abst ract ideas (such as current events, finances, discharge planning, medical issues, relationships, etc) ? No. EXPRESSION - STEP 2: Does the patient need extra time, require an assistive device (such as augmentive communication syste m or a communication board), OR does s/he have mild difficulty expressing complex and abstract ideas (including mild dysarthria or mild word-find problems)? Yes. EXPRESSION - SCORE: 6-CASPER SOCIAL INTERACTION: SOCIAL INTERACTION - STEP 1: Does the patient require a helper to interact with others in social and therapeutic situations? No. SOCIAL INTERACTION - STEP 2: Does the patient need extra time in social situations, OR does s/he interact with staff, other patien ts, and family members ONLY in structured environments, OR does s/he require medication for social in teraction? Yes, patient needs extra time SOCIAL INTERACTION - SCORE: 6-CASPER PROBLEM SOLVING: PROBLEM SOLVING - STEP 1: Does the patient need help from a person or device, or need extra time to solve complex problems such as managing a checking account or confronting interpersonal problems? No. PROBLEM SOLVING - STEP 2: Does the patient require extra time to make decisions or solve problems, OR does s/he have slight dif ficulty reading, initiating, or self-correcting in unfamiliar situations? Yes, patient needs extra ti me. PROBLEM SOLVING - SCORE: 6-CASPER MEMORY: MEMORY - STEP 1: Does the patient need help from a person or device, or need extra time to remember frequently encount ered people, daily routines, and executing requests? No. MEMORY - STEP 2: Does the patient have slight difficulty recognizing frequently encountered people, daily routines, or executing requests without the need for repetition or using self-initiated or environmental cues to remember? Yes. MEMORY - SCORE: 6-CASPER SIGNATURE PANEL: The following modified sections: Eating - Score, Grooming - Score, Bathing - Score, Dressing - Upper Body - Score, Dressing - Lower Body - Score, Toileting - Score, Bladder Management - Score, Bowel Man agement - Score, Transfers: Bed, Chair, Wheelchair - Score, Transfers: Toilet - Score, Transfers: Monica wer - Score, Transfers: Tub - Score, Locomotion: Walk - Score, Locomotion: Wheelchair - Score, Compre hension - Score, Expression - Score, Social Interaction - Score, Problem Solving - Score, Memory - Sc ore were [electronically] signed by Mayco Kirkland on MonOct 07 2018 10:52:38 GMT-0500 (Central Daylight Time)
[2018-10-07] MEDS: MELATONIN 3 MG TABLET PO PRN (20:23)
[2018-10-07] MEDS: DOCUSATE NA/SENNA CONC 1 TAB PO SCH (20:23)
[2018-10-07] MEDS: ATORVASTATIN 80 MG TAB PO SCH (20:24)
[2018-10-08] MEDS: HYDROCODONE/APAP 5/325 MG TAB PO PRN ×4 (03:42→22:23)
[2018-10-08] MEDS ORDERED: GABAPENTIN 100 MG CAP ONE ×2 (06:58→13:19)
[2018-10-08] MEDS: PANTOPRAZOLE 40MG TABLET PO SCH (07:05)
[2018-10-08] MEDS: LEVOTHYROXINE SOD 0.05 MG TABLET PO SCH (07:05)
[2018-10-08] MEDS: ENOXAPARIN 40 MG/0.4 ML SQ SCH (07:06)
[2018-10-08] MEDS: INSULIN -REGULAR HUMAN 50 UNIT/0.5 ML ML SQ SCH ×4 (07:30→21:23)
[2018-10-08] MEDS: NPH (HUMAN) 100 UNITS/ML INSULIN SQ SCH ×2 (08:00→20:52)
[2018-10-08] MEDS: LIDOCAINE 5% PATCH TOP SCH (08:01)
[2018-10-08] MEDS: CLOPIDOGREL 75 MG TABLET PO SCH (08:02)
[2018-10-08] MEDS: METFORMIN ER 500 MG TAB PO SCH (08:02)
[2018-10-08] MEDS: ASPIRIN EC 81 MG TAB PO SCH (08:02)
[2018-10-08] MEDS: GABAPENTIN 300 MG CAP PO SCH ×3 (08:02→20:51)
[2018-10-08] MEDS: MAGNESIUM OXIDE 400 MG TAB PO SCH ×2 (08:02→20:50)
[2018-10-08] MEDS: FLUDROCORTISONE 0.1 MG TAB PO SCH (08:03)
[2018-10-08] MEDS: VENLAFAXINE HCL 75 MG TABLET PO SCH ×3 (08:03→20:50)
[2018-10-08 10:22] LABS: CKMB Creatine Kinase MB 1.2 ng/mL (0.3-3.6); Creatine Phosphokinase 52 U/L (39-308); Troponin I < 0.02 ng/mL (0.0-0.045)
[2018-10-08] MEDS: TRAMADOL HCL 50 MG TAB PO PRN ×2 (12:10→20:52)
--- NOTE | 2018-10-08 14:18 | FAST ---
SHIFT START DATE/TIME: 10/08/2018 07:00 (CDT) SHIFT END DATE/TIME: 10/08/2018 19:00 (CDT) NAME FAITH VANCE DATE OF : 1960 DATE OF ADMISSION: 10/02/2018 19:00 (CDT) PHONE: AGE: 58 N# [id number] GENDER: Male ENCOUNTER PHYSICIAN: Dr. Luis Manuel Corley M.D. 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 EATING: EATING - STEP 1: Does the patient require the assistance of a person or device, or need extra time when eating? Yes. EATING - STEP 2: Does the patient require the assistance of a helper? Yes. EATING - STEP 3: Does the patient perform half or more of the eating tasks? Yes. EATING - STEP 4: Does the patient need only supervision, cuing, coaxing OR help to apply an orthosis OR help to cut fo od, open containers, pour liquids, or butter bread? Yes. EATING - SCORE: 5-SUP GROOMING: Comb/brush hair Wash, rinse, and dry face Wash, rinse, and dry hands GROOMING - STEP 1: Does the patient require the assistance of a person or device, or need extra time when grooming? Yes. GROOMING - STEP 2: Does the patient require the assistance of a helper? Yes. GROOMING - STEP 3: How much assistance does the patient require from the helper? Only prior equipment preparation/set up from the helper GROOMING - SCORE: 5-SUP BATHING: Activity did not occur on this shift BATHING - SCORE: 0-UNK DRESSING - UPPER BODY: T-shirt/pullover shirt (four steps) ARTICLES SCORE Total number of steps: 4 DRESSING - UPPER BODY - STEP 1: Does the patient require help from a person or device, or need extra time when dressing above the j[address] st? Yes. DRESSING - UPPER BODY - STEP 2: Does the patient require the assistance of a helper? No. Patient only requires an assistive device, s uch as a button hook, velcro, or preformer impregnated fabrics. OR s/he takes more than reasonable time as s/he dresses the upper body. OR there is a concern for safety when s/he dresses the upper body DRESSING - UPPER BODY - SCORE: 6-CASPER DRESSING - LOWER BODY: Activity did not occur on this shift ARTICLES SCORE Total number of steps: 0 DRESSING - LOWER BODY - SCORE: 0-UNK TOILETING: TOILETING - STEP 1: Does the patient require the assistance of a person or device, or need extra time with toileting? Yes . TOILETING - STEP 2: Does the patient require the assistance of a helper? Yes. TOILETING - STEP 3: How much assistance does the patient require from the helper? Hands-on assistance from the helper TOILETING - STEP 4: Of the 3 tasks: 1) Adjusting clothing prior to use, 2) Cleansing of perineal area, 3) Adjusting clot betty after use; How many tasks does the patient perform WITHOUT assistance of the helper? Two tasks TOILETING - SCORE: 3-MOD BLADDER MANAGEMENT: BLADDER MANAGEMENT - STEP 1: Does the patient control the bladder completely and intentionally without equipment or devices or med ications, and is always continent? No. BLADDER MANAGEMENT - STEP 2: Does the patient require the assistance of a helper? No, patient only requires extra time BLADDER MANAGEMENT - SCORE: 6-CASPER BLADDER MANAGEMENT - FREQUENCY OF ACCIDENTS: BLADDER MANAGEMENT(FA) - STEP 1: How many accidents has the patient had during the current shift? 0 BOWEL MANAGEMENT: BOWEL MANAGEMENT - STEP 1: Does the patient control bowels completely and intentionally without equipment devices or medications AND is always continent? No. BOWEL MANAGEMENT - STEP 2: Does the patient require the assistance of a helper? No, patient requires medication for control such as stool softeners, suppositories, laxatives, enemas, or OTC medications BOWEL MANAGEMENT - SCORE: 6-CASPER BOWEL MANAGEMENT - FREQUENCY OF ACCIDENTS: BOWEL MANAGEMENT(FA) - STEP 1: How many accidents has the patient had during the current shift? 0 TRANSFERS: BED, CHAIR, WHEELCHAIR: TRANSFERS: BED, CHAIR, WHEELCHAIR - STEP 1: Does the patient require assistance of a person or device, or need extra time with bed, chair, or whe elchair transfers? Yes. TRANSFERS: BED, CHAIR, WHEELCHAIR - STEP 2: Does the patient require the assistance of a helper? Yes. TRANSFERS: BED, CHAIR, WHEELCHAIR - STEP 3: How much assistance does the patient require from the helper? Steadying/guiding assistance TRANSFERS: BED, CHAIR, WHEELCHAIR - SCORE: 4-MIN TRANSFERS: TOILET: TRANSFERS: TOILET - STEP 1: Does the patient require the assistance of a person or device, or need extra time with toilet transfe rs? Yes. TRANSFERS: TOILET - STEP 2: Does the patient require the assistance of a helper? Yes. TRANSFERS: TOILET - STEP 3: How much assistance does the patient require from the helper? Patient performs half or more of the tr ansferring tasks TRANSFERS: TOILET - STEP 4: Does the patient need only incidental help such as contact guard or steadying during toilet transfer? Yes. TRANSFERS: TOILET - SCORE: 4-MIN TRANSFERS: SHOWER: Activity did not occur on this shift TRANSFERS: SHOWER - SCORE: 0-UNK TRANSFERS: TUB: Activity did not occur on this shift TRANSFERS: TUB - SCORE: 0-UNK LOCOMOTION: WALK: Activity did not occur on this shift LOCOMOTION: WALK - SCORE: 0-UNK LOCOMOTION: WHEELCHAIR: Activity did not occur on this shift LOCOMOTION: WHEELCHAIR - SCORE: 0-UNK COMPREHENSION: COMPREHENSION: TYPE: Both COMPREHENSION - STEP 1: Does the patient require help from a person or device, or need extra time to understand complex and a bstract ideas (such as current events, finances, discharge planning, medical issues, relationships, e tc)? No. COMPREHENSION - STEP 2: Does the patient need extra time, require an assistive device (such as glasses for visual comprehensi on or a hearing aid for auditory comprehension) or does s/he have mild difficulty understanding compl ex and abstract information? Yes. COMPREHENSION - SCORE: 6-CASPER EXPRESSION EXPRESSION: TYPE: Both EXPRESSION - STEP 1: Does the patient require help from a person or device, or need extra time expressing complex and abst ract ideas (such as current events, finances, discharge planning, medical issues, relationships, etc) ? No. EXPRESSION - STEP 2: Does the patient need extra time, require an assistive device (such as augmentive communication syste m or a communication board), OR does s/he have mild difficulty expressing complex and abstract ideas (including mild dysarthria or mild word-find problems)? Yes. EXPRESSION - SCORE: 6-CASPER SOCIAL INTERACTION: SOCIAL INTERACTION - STEP 1: Does the patient require a helper to interact with others in social and therapeutic situations? No. SOCIAL INTERACTION - STEP 2: Does the patient need extra time in social situations, OR does s/he interact with staff, other patien ts, and family members ONLY in structured environments, OR does s/he require medication for social in teraction? Yes, patient needs extra time SOCIAL INTERACTION - SCORE: 6-CASPER PROBLEM SOLVING: PROBLEM SOLVING - STEP 1: Does the patient need help from a person or device, or need extra time to solve complex problems such as managing a checking account or confronting interpersonal problems? No. PROBLEM SOLVING - STEP 2: Does the patient require extra time to make decisions or solve problems, OR does s/he have slight dif ficulty reading, initiating, or self-correcting in unfamiliar situations? Yes, patient needs extra ti me. PROBLEM SOLVING - SCORE: 6-CASPER MEMORY: MEMORY - STEP 1: Does the patient need help from a person or device, or need extra time to remember frequently encount ered people, daily routines, and executing requests? No. MEMORY - STEP 2: Does the patient have slight difficulty recognizing frequently encountered people, daily routines, or executing requests without the need for repetition or using self-initiated or environmental cues to remember? Yes. MEMORY - SCORE: 6-CASPER SIGNATURE PANEL: The following modified sections: Eating - Score, Grooming - Score, Bathing - Score, Dressing - Upper Body - Score, Dressing - Lower Body - Score, Toileting - Score, Bladder Management - Score, Bowel Man agement - Score, Transfers: Bed, Chair, Wheelchair - Score, Transfers: Toilet - Score, Transfers: Monica wer - Score, Transfers: Tub - Score, Locomotion: Walk - Score, Locomotion: Wheelchair - Score, Compre hension - Score, Expression - Score, Social Interaction - Score, Problem Solving - Score, Memory - Sc ore were [electronically] signed by Sita PetersenNGianna on MonOct 08 2018 14:17:53 T-0500 (Centra l Daylight Time)
--- NOTE | 2018-10-08 14:49 | FAST ---
ENCOUNTER DATE AND TIME: 10/08/2018 08:00 (CDT) NAME FAITH VANCE DATE OF : 1960 DATE OF ADMISSION: 10/02/2018 19:00 (CDT) PHONE: AGE: 58 N# [id number] GENDER: Male ENCOUNTER PHYSICIAN: Dr. Luis Manuel Corley M.D. 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 EATING: Activity did not occur on this shift EATING - SCORE: 0-UNK GROOMING: Activity did not occur on this shift GROOMING - SCORE: 0-UNK BATHING: Activity did not occur on this shift BATHING - SCORE: 0-UNK DRESSING - UPPER BODY: Activity did not occur on this shift Patient is not dressing in public clothing ARTICLES SCORE Total number of steps: 0 DRESSING - UPPER BODY - SCORE: 0-UNK DRESSING - LOWER BODY: Activity did not occur on this shift Patient is not dressing in public clothing ARTICLES SCORE Total number of steps: 0 DRESSING - LOWER BODY - SCORE: 0-UNK TOILETING: Activity did not occur on this shift TOILETING - SCORE: 0-UNK BLADDER MANAGEMENT: Activity did not occur on this shift BLADDER MANAGEMENT - SCORE: 7-IND BOWEL MANAGEMENT: Activity did not occur on this shift BOWEL MANAGEMENT - SCORE: 7-IND TRANSFERS: BED, CHAIR, WHEELCHAIR: TRANSFERS: BED, CHAIR, WHEELCHAIR - STEP 1: Does the patient require assistance of a person or device, or need extra time with bed, chair, or whe elchair transfers? Yes. TRANSFERS: BED, CHAIR, WHEELCHAIR - STEP 2: Does the patient require the assistance of a helper? Yes. TRANSFERS: BED, CHAIR, WHEELCHAIR - STEP 3: How much assistance does the patient require from the helper? Only supervision TRANSFERS: BED, CHAIR, WHEELCHAIR - SCORE: 5-SUP TRANSFERS: TOILET: Activity did not occur on this shift TRANSFERS: TOILET - SCORE: 0-UNK TRANSFERS: SHOWER: Activity did not occur on this shift TRANSFERS: SHOWER - SCORE: 0-UNK TRANSFERS: TUB: Activity did not occur on this shift TRANSFERS: TUB - SCORE: 0-UNK LOCOMOTION: WALK: LOCOMOTION: WALK - STEP 1: Does the patient need help from a person or device, or need extra time to walk 150 feet? Yes. LOCOMOTION: WALK - STEP 2: How much assistance does the patient require to walk a minimum of 150 feet? Patient walks less than 1 50 feet - but more than 50 feet - with the assistance of only one helper LOCOMOTION: WALK - SCORE: 2-MAX LOCOMOTION: WHEELCHAIR: LOCOMOTION: WHEELCHAIR - STEP 1: Does the patient need help to go 150 feet in a wheelchair? No. LOCOMOTION: WHEELCHAIR - SCORE: 6-CASPER LOCOMOTION: STAIRS: Activity did not occur on this shift LOCOMOTION: STAIRS - SCORE: 0-UNK COMPREHENSION: COMPREHENSION - SCORE: 0-UNK EXPRESSION EXPRESSION - SCORE: 0-UNK SOCIAL INTERACTION: SOCIAL INTERACTION - SCORE: 0-UNK PROBLEM SOLVING: PROBLEM SOLVING - SCORE: 0-UNK MEMORY: MEMORY - SCORE: 0-UNK SIGNATURE PANEL: The following modified sections: Transfers: Bed, Chair, Wheelchair - Score, Transfers: Toilet - Score , Locomotion: Walk - Score, Locomotion: Wheelchair - Score, Locomotion: Stairs - Score were [rosa eastman] signed by Will Raymundo PTA on MonOct 08 2018 14:48:03 GMT-0500 (Central Daylight Time)
--- NOTE | 2018-10-08 15:11 | EKG ---
Test Date: 2018-10-08 Test Time: 10:43:36 Job Cost Estimator: NEYDA MEASUREMENT RESULTS: Intervals: Rate: 74 NE: 304 QRSD: 166 QT: 464 QTc: 515 [place]: P: 9 NE: 304 QRS: -55 T: 101 INTERPRETIVE STATEMENTS: Electronic ventricular pacemaker Compared to ECG 09/28/2018 16:22:54 Accelerated junctional rhythm no longer present Myocardial infarct finding no longer present Prolonged QT interval no longer present Electronically Signed On 10-08-18 15:10:50 CDT by Igor Gordillo
--- NOTE | 2018-10-08 18:06 | R.PN ---
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 Pt denied any depression. Ambulated 275' with contact guard assistance using a rolling walker. Self-propelled wheelchair 500' with modified independence. VITAL SIGNS Temperature: 98.3 F SBP/DBP: 103/65 Pulse: 72 Resp: 16 MEDICATION ALLERGIES: No Known Drug Allergies (NKDA) ENVIRONMENTAL ALLERGIES: None Known - Substance Allergies None Known - Other Allergies None Known NURSING: - Shower allowing shower - Lab Results blood Sugar Check ACHS - Bladder care per protocol - Skin care per protocol PRECAUTIONS: - Weight Bearing Precaution WBAT left LE ACTIVITIES OOB only with supervision THERAPIES: - Occupational Therapy Evaluate and Treat. Visual Perceptual Training. Cognitive Retraining. - Speech Therapy Cognitive Training. Memory Strategies. Expressive Language Skills. Speech Intelligibility Training. R eceptive Language Skills. - Physical Therapy Evaluate and Treat. PHYSICAL EXAM - Gen Alert and awake Lying in bed No apparent distress Oriented to: person, time, and place - Skin No breakdown No abnormalities - Eyes No abnormalities - ENMT No abnormalities - Neck No abnormalities - CVS RRR - Chest No abnormalities - Resp Clear to auscultation - Abd Soft - GI nondistended Deferred - No abnormalities - Ext No significant edema - MSK 4+/5 weakness in left upper and lower extremity - Neuro 4/5 strength left upper and lower extremities. - Psych No abnormalities ASSESSMENT: Pt. is a 58 yo Right-handed male.On 09/28/2018 Pt. presented to [facility] with sudden onset of le ft-side superimposed on chronic left lower extremity weakness secondary to lumbar cord and root compr ession.On 09/28/2018 Pt. presented to [facility] with sudden onset of left-side weakness.On 09/28/2018 he w as admitted to [facility] with diagnosis Right CVA.His impairment category is Stroke 01 - Left Body (Right Brain) (01.1).Pre-morbidly, Pt. was independent/mod-I in Self-Care, Sphincter Control, Transfers Con trol, Locomotion, Communication, and Social Cognition; and he had good Sphincter Control.Currently, yuko merlos has deficits of Self-Care, Transfers Control, Locomotion, Endurance, Balance, and Safety Awareness. Pt. is now referred to [facility] for acute in-patient rehabilitation in order to maximize patient's functional independence in activities of daily living, strength, ROM, and mobi lity.- Rehab Goal Patient has realistic goal of being discharged at assistance level 6-Reddy to reside at Home with Fam tomy/Relatives. MDM/PLAN: - Physical Therapy Weakness - to improve, our physical therapists will perform initial evaluation of pt's status upon a dmission and devise an individualized program for Aquatic Therapy, Neuromuscular Reeducation, and Str engthening Poor balance - to improve, our physical therapists will perform initial evaluation of pt's status up on admission and devise an individualized program for Balance Training Inability to transfer - to improve, our physical therapists will perform initial evaluation of pt's status upon admission and devise an individualized program for Bed mobility Need in caregiver upon discharge - to improve, our physical therapists will perform initial evaluati on of pt's status upon admission and devise an individualized program for Caregiver Training Poor endurance - to improve, our physical therapists will perform initial evaluation of pt's status upon admission and devise an individualized program for Endurance Training Gait dysfunction - to improve, our physical therapists will perform initial evaluation of pt's statu s upon admission and devise an individualized program for Gait Training, and Wheel Chair mobility Need for home safety evaluation - to improve, our physical therapists will perform initial evaluatio n of pt's status upon admission and devise an individualized program for Home Evaluation New precaution - to improve, our physical therapists will perform initial evaluation of pt's status upon admission and devise an individualized program for Patient precaution education Edema - to improve, our physical therapists will perform initial evaluation of pt's status upon admi ssion and devise an individualized program for Elevation Training, and Lymphedema Therapy - Occupational Therapy Weakness - to improve, our occupation therapists will perform initial evaluation of pt's status upon admission and devise an individualized program for Aquatic Therapy, Balance, Endurance, UE ROM, and UE strengthening ADL deficits - to improve, our occupation therapists will perform initial evaluation of pt's status upon admission and devise an individualized program for Bathing, Bed mobility, Community Reintegratio n, Cooking, Dressing, Eating, Fine Motor Skills, Grooming, Homemaking, Kitchen Mobility, Laundry, Pat ient Education, Safety Awareness, Splinting - Positioning, Transfers(Toilet, Tub, Shower), and Wheel Chair Management Need for child care teacher - to improve, our occupation therapists will perform initial evaluation of pt's status upon admission and devise an individualized program for Caregiver Training - Diet Type Continue Regular - Diet - Liquid Texture Continue Regular - Tube Feed Continue N/A - Lab Results blood Sugar Check ACHS - Bladder care per protocol - Weight Bearing Precaution WBAT left LE - Skin care per protocol - Diet - Solid Texture Continue Regular - Shower allowing shower for Dementia, TBI, Stroke, or others - Balance for Weakness - Bed mobility for ADL deficits - Cognition - orientation for Dementia - Dressing Status: indep for ADL deficits - Eating for ADL deficits - Grooming Status: indep for ADL deficits - Toilet Transfer Status: indep for ADL deficits - Bed to Chair Transfer SELECT Status: indep for ADL deficits - Hygiene for ADL deficits - Tub Transfer for ADL deficits Status: indep - Shower Transfer for ADL deficits Status: indep - Wheel Chair to Bed Transfer Status: indep for ADL deficits FUNCTIONAL STATUS: UPDATED AT WEEKLY TEAM CONFERENCE - Bladder Same accident frequency: 7-Ind - No accidents in the past 7 days - Bowel Same accident frequency: 7-Ind - No accidents in the past 7 days - Walking Same score based on distance walked: 1(<=50ft) - Wheelchair Same score based on distance traveled: 0(N/A) FUNCTIONAL STATUS: - Self-Care A. Eating sup B. Grooming sup C. Bathing sup D. Dressing - Upper sup E. Dressing - Lower CGA F. Toileting sup - Sphincter Control G: Bladder control Ind H: Bowel control Ind - Transfers Control I. Bed/Chair/Wheelchair aDt J. Toilet Dat K. Tub/Shower ADNO - Locomotion L. Walk/Wheelchair (C) Dat L. Walk/Wheelchair (W) Dat M. Stairs ADNO - Communication N. Comprehension (B) Ind O. Expression (B) Ind - Social Cognition P. Social Interaction Ind Q. Problem Solving Ind R. Memory Ind - Endurance Fair - Balance Fair - Safety Awareness Fair CURRENT FUNC. DEFICITS: Self-Care, Transfers Control, Locomotion, Endurance, Balance, and Safety Awareness SIGNATURE PANEL: (CDT)
[2018-10-08] MEDS: MELATONIN 3 MG TABLET PO PRN (20:51)
[2018-10-08] MEDS: ATORVASTATIN 80 MG TAB PO SCH (20:51)
[2018-10-08] MEDS: DOCUSATE NA/SENNA CONC 1 TAB PO SCH (20:53)
--- NOTE | 2018-10-09 01:19 | FAST ---
SHIFT START DATE/TIME: 10/08/2018 19:00 (CDT) SHIFT END DATE/TIME: 10/09/2018 07:00 (CDT) NAME FAITH VANCE DATE OF : 1960 DATE OF ADMISSION: 10/02/2018 19:00 (CDT) PHONE: AGE: 58 N# [id number] GENDER: Male ENCOUNTER PHYSICIAN: Dr. Luis Manuel Corley M.D. 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 EATING: Activity did not occur on this shift EATING - SCORE: 0-UNK GROOMING: Activity did not occur on this shift GROOMING - SCORE: 0-UNK BATHING: Activity did not occur on this shift BATHING - SCORE: 0-UNK DRESSING - UPPER BODY: Patient is not dressing in public clothing ARTICLES SCORE Total number of steps: 0 DRESSING - UPPER BODY - SCORE: 0-UNK DRESSING - LOWER BODY: Patient is not dressing in public clothing ARTICLES SCORE Total number of steps: 0 DRESSING - LOWER BODY - SCORE: 0-UNK TOILETING: TOILETING - STEP 1: Does the patient require the assistance of a person or device, or need extra time with toileting? Yes . TOILETING - STEP 2: Does the patient require the assistance of a helper? Yes. TOILETING - STEP 3: How much assistance does the patient require from the helper? Only supervision TOILETING - SCORE: 5-SUP BLADDER MANAGEMENT: BLADDER MANAGEMENT - STEP 1: Does the patient control the bladder completely and intentionally without equipment or devices or med ications, and is always continent? No. BLADDER MANAGEMENT - STEP 2: Does the patient require the assistance of a helper? No, patient requires and independently uses an a ssistive device, such as a urinal, bedpan, bedside commode, catheter, absorbent pad, or collecting de vice BLADDER MANAGEMENT - SCORE: 6-CASPER BOWEL MANAGEMENT: Activity did not occur on this shift BOWEL MANAGEMENT - SCORE: 7-IND TRANSFERS: BED, CHAIR, WHEELCHAIR: Activity did not occur on this shift TRANSFERS: BED, CHAIR, WHEELCHAIR - SCORE: 0-UNK TRANSFERS: TOILET: Activity did not occur on this shift TRANSFERS: TOILET - SCORE: 0-UNK TRANSFERS: SHOWER: Activity did not occur on this shift TRANSFERS: SHOWER - SCORE: 0-UNK TRANSFERS: TUB: Activity did not occur on this shift TRANSFERS: TUB - SCORE: 0-UNK LOCOMOTION: WALK: Activity did not occur on this shift LOCOMOTION: WALK - SCORE: 0-UNK LOCOMOTION: WHEELCHAIR: Activity did not occur on this shift LOCOMOTION: WHEELCHAIR - SCORE: 0-UNK COMPREHENSION: COMPREHENSION: TYPE: Both COMPREHENSION - STEP 1: Does the patient require help from a person or device, or need extra time to understand complex and a bstract ideas (such as current events, finances, discharge planning, medical issues, relationships, e tc)? No. COMPREHENSION - STEP 2: Does the patient need extra time, require an assistive device (such as glasses for visual comprehensi on or a hearing aid for auditory comprehension) or does s/he have mild difficulty understanding compl ex and abstract information? Yes. COMPREHENSION - SCORE: 6-CASPER EXPRESSION EXPRESSION: TYPE: Both EXPRESSION - STEP 1: Does the patient require help from a person or device, or need extra time expressing complex and abst ract ideas (such as current events, finances, discharge planning, medical issues, relationships, etc) ? No. EXPRESSION - STEP 2: Does the patient need extra time, require an assistive device (such as augmentive communication syste m or a communication board), OR does s/he have mild difficulty expressing complex and abstract ideas (including mild dysarthria or mild word-find problems)? No. EXPRESSION - SCORE: 7-IND SOCIAL INTERACTION: SOCIAL INTERACTION - STEP 1: Does the patient require a helper to interact with others in social and therapeutic situations? No. SOCIAL INTERACTION - STEP 2: Does the patient need extra time in social situations, OR does s/he interact with staff, other patien ts, and family members ONLY in structured environments, OR does s/he require medication for social in teraction? Yes, patient requires medication for social interaction SOCIAL INTERACTION - SCORE: 6-CASPER PROBLEM SOLVING: PROBLEM SOLVING - STEP 1: Does the patient need help from a person or device, or need extra time to solve complex problems such as managing a checking account or confronting interpersonal problems? No. PROBLEM SOLVING - STEP 2: Does the patient require extra time to make decisions or solve problems, OR does s/he have slight dif ficulty reading, initiating, or self-correcting in unfamiliar situations? Yes, patient needs extra ti me. PROBLEM SOLVING - SCORE: 6-CASPER MEMORY: MEMORY - STEP 1: Does the patient need help from a person or device, or need extra time to remember frequently encount ered people, daily routines, and executing requests? No. MEMORY - STEP 2: Does the patient have slight difficulty recognizing frequently encountered people, daily routines, or executing requests without the need for repetition or using self-initiated or environmental cues to remember? Yes. MEMORY - SCORE: 6-CASPER SIGNATURE PANEL: The following modified sections: Eating - Score, Grooming - Score, Dressing - Upper Body - Score, Otoniel ssing - Lower Body - Score, Toileting - Score, Bladder Management - Score, Bowel Management - Score, Transfers: Bed, Chair, Wheelchair - Score, Transfers: Toilet - Score, Transfers: Shower - Score, Wasserman sfers: Tub - Score, Locomotion: Walk - Score, Locomotion: Wheelchair - Score, Comprehension - Score, Expression - Score, Social Interaction - Score, Problem Solving - Score, Memory - Score were [electro nically] signed by Sobia Valencia CNA on MonOct 09 2018 01:18:20 GMT-0500 (Central Daylight Time)
[2018-10-09] MEDS: PANTOPRAZOLE 40MG TABLET PO SCH (06:38)
[2018-10-09] MEDS: ENOXAPARIN 40 MG/0.4 ML SQ SCH (06:38)
[2018-10-09] MEDS: LEVOTHYROXINE SOD 0.05 MG TABLET PO SCH (06:38)
[2018-10-09] MEDS: INSULIN -REGULAR HUMAN 50 UNIT/0.5 ML ML SQ SCH ×4 (07:30→21:39)
[2018-10-09] MEDS ORDERED: GABAPENTIN 100 MG CAP ONE ×2 (07:33→14:27)
[2018-10-09] MEDS: LIDOCAINE 5% PATCH TOP SCH (08:11)
[2018-10-09] MEDS: MAGNESIUM OXIDE 400 MG TAB PO SCH ×2 (08:12→19:28)
[2018-10-09] MEDS: TRAMADOL HCL 50 MG TAB PO PRN ×2 (08:13→14:55)
[2018-10-09] MEDS: ASPIRIN EC 81 MG TAB PO SCH (08:13)
[2018-10-09] MEDS: FLUDROCORTISONE 0.1 MG TAB PO SCH (08:13)
[2018-10-09] MEDS: CLOPIDOGREL 75 MG TABLET PO SCH (08:13)
[2018-10-09] MEDS: VENLAFAXINE HCL 75 MG TABLET PO SCH ×2 (08:13→19:28)
[2018-10-09] MEDS: METFORMIN ER 500 MG TAB PO SCH (08:13)
[2018-10-09] MEDS: NPH (HUMAN) 100 UNITS/ML INSULIN SQ SCH ×2 (08:16→20:18)
[2018-10-09] MEDS: GABAPENTIN 300 MG CAP PO SCH ×3 (09:00→20:19)
[2018-10-09] MEDS: HYDROCODONE/APAP 5/325 MG TAB PO PRN ×2 (10:22→19:27)
--- NOTE | 2018-10-09 13:04 | FAST ---
SHIFT START DATE/TIME: 10/09/2018 07:00 (CDT) SHIFT END DATE/TIME: 10/09/2018 19:00 (CDT) NAME FAITH VANCE DATE OF : 1960 DATE OF ADMISSION: 10/02/2018 19:00 (CDT) PHONE: AGE: 58 N# [id number] GENDER: Male ENCOUNTER PHYSICIAN: Dr. Luis Manuel Corley M.D. 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 EATING: EATING - STEP 1: Does the patient require the assistance of a person or device, or need extra time when eating? Yes. EATING - STEP 2: Does the patient require the assistance of a helper? Yes. EATING - STEP 3: Does the patient perform half or more of the eating tasks? Yes. EATING - STEP 4: Does the patient need only supervision, cuing, coaxing OR help to apply an orthosis OR help to cut fo od, open containers, pour liquids, or butter bread? Yes. EATING - SCORE: 5-SUP GROOMING: Activity did not occur on this shift GROOMING - SCORE: 0-UNK BATHING: Activity did not occur on this shift BATHING - SCORE: 0-UNK DRESSING - UPPER BODY: T-shirt/pullover shirt (four steps) ARTICLES SCORE Total number of steps: 4 DRESSING - UPPER BODY - STEP 1: Does the patient require help from a person or device, or need extra time when dressing above the james st? Yes. DRESSING - UPPER BODY - STEP 2: Does the patient require the assistance of a helper? No. Patient only requires an assistive device, s uch as a button hook, velcro, or technical engineer. OR s/he takes more than reasonable time as s/he dresses the upper body. OR there is a concern for safety when s/he dresses the upper body DRESSING - UPPER BODY - SCORE: 6-CASPER DRESSING - LOWER BODY: Activity did not occur on this shift ARTICLES SCORE Total number of steps: 0 DRESSING - LOWER BODY - SCORE: 0-UNK TOILETING: TOILETING - STEP 1: Does the patient require the assistance of a person or device, or need extra time with toileting? Yes . TOILETING - STEP 2: Does the patient require the assistance of a helper? Yes. TOILETING - STEP 3: How much assistance does the patient require from the helper? Hands-on assistance from the helper TOILETING - STEP 4: Of the 3 tasks: 1) Adjusting clothing prior to use, 2) Cleansing of perineal area, 3) Adjusting clot betty after use; How many tasks does the patient perform WITHOUT assistance of the helper? Two tasks TOILETING - SCORE: 3-MOD BLADDER MANAGEMENT: BLADDER MANAGEMENT - STEP 1: Does the patient control the bladder completely and intentionally without equipment or devices or med ications, and is always continent? No. BLADDER MANAGEMENT - STEP 2: Does the patient require the assistance of a helper? No, patient requires and independently uses an a ssistive device, such as a urinal, bedpan, bedside commode, catheter, absorbent pad, or collecting de vice BLADDER MANAGEMENT - SCORE: 6-CASPER BLADDER MANAGEMENT - FREQUENCY OF ACCIDENTS: BLADDER MANAGEMENT(FA) - STEP 1: How many accidents has the patient had during the current shift? 0 BOWEL MANAGEMENT: Activity did not occur on this shift BOWEL MANAGEMENT - SCORE: 7-IND BOWEL MANAGEMENT - FREQUENCY OF ACCIDENTS: BOWEL MANAGEMENT(FA) - STEP 1: How many accidents has the patient had during the current shift? 1 TRANSFERS: BED, CHAIR, WHEELCHAIR: TRANSFERS: BED, CHAIR, WHEELCHAIR - STEP 1: Does the patient require assistance of a person or device, or need extra time with bed, chair, or whe elchair transfers? Yes. TRANSFERS: BED, CHAIR, WHEELCHAIR - STEP 2: Does the patient require the assistance of a helper? Yes. TRANSFERS: BED, CHAIR, WHEELCHAIR - STEP 3: How much assistance does the patient require from the helper? Steadying/guiding assistance TRANSFERS: BED, CHAIR, WHEELCHAIR - SCORE: 4-MIN TRANSFERS: TOILET: TRANSFERS: TOILET - STEP 1: Does the patient require the assistance of a person or device, or need extra time with toilet transfe rs? Yes. TRANSFERS: TOILET - STEP 2: Does the patient require the assistance of a helper? Yes. TRANSFERS: TOILET - STEP 3: How much assistance does the patient require from the helper? Patient performs half or more of the tr ansferring tasks TRANSFERS: TOILET - STEP 4: Does the patient need only incidental help such as contact guard or steadying during toilet transfer? Yes. TRANSFERS: TOILET - SCORE: 4-MIN TRANSFERS: SHOWER: Activity did not occur on this shift TRANSFERS: SHOWER - SCORE: 0-UNK TRANSFERS: TUB: Activity did not occur on this shift TRANSFERS: TUB - SCORE: 0-UNK LOCOMOTION: WALK: Activity did not occur on this shift LOCOMOTION: WALK - SCORE: 0-UNK LOCOMOTION: WHEELCHAIR: LOCOMOTION: WHEELCHAIR - STEP 1: Does the patient need help to go 150 feet in a wheelchair? No. LOCOMOTION: WHEELCHAIR - SCORE: 6-CASPER COMPREHENSION: COMPREHENSION: TYPE: Both COMPREHENSION - STEP 1: Does the patient require help from a person or device, or need extra time to understand complex and a bstract ideas (such as current events, finances, discharge planning, medical issues, relationships, e tc)? No. COMPREHENSION - STEP 2: Does the patient need extra time, require an assistive device (such as glasses for visual comprehensi on or a hearing aid for auditory comprehension) or does s/he have mild difficulty understanding compl ex and abstract information? Yes. COMPREHENSION - SCORE: 6-CASPER EXPRESSION EXPRESSION: TYPE: Both EXPRESSION - STEP 1: Does the patient require help from a person or device, or need extra time expressing complex and abst ract ideas (such as current events, finances, discharge planning, medical issues, relationships, etc) ? No. EXPRESSION - STEP 2: Does the patient need extra time, require an assistive device (such as augmentive communication syste m or a communication board), OR does s/he have mild difficulty expressing complex and abstract ideas (including mild dysarthria or mild word-find problems)? Yes. EXPRESSION - SCORE: 6-CASPER SOCIAL INTERACTION: SOCIAL INTERACTION - STEP 1: Does the patient require a helper to interact with others in social and therapeutic situations? No. SOCIAL INTERACTION - STEP 2: Does the patient need extra time in social situations, OR does s/he interact with staff, other patien ts, and family members ONLY in structured environments, OR does s/he require medication for social in teraction? Yes, patient needs extra time SOCIAL INTERACTION - SCORE: 6-CASPER PROBLEM SOLVING: PROBLEM SOLVING - STEP 1: Does the patient need help from a person or device, or need extra time to solve complex problems such as managing a checking account or confronting interpersonal problems? No. PROBLEM SOLVING - STEP 2: Does the patient require extra time to make decisions or solve problems, OR does s/he have slight dif ficulty reading, initiating, or self-correcting in unfamiliar situations? Yes, patient needs extra ti me. PROBLEM SOLVING - SCORE: 6-CASPER MEMORY: MEMORY - STEP 1: Does the patient need help from a person or device, or need extra time to remember frequently encount ered people, daily routines, and executing requests? Yes. MEMORY - STEP 2: How often does the patient need help to remember frequently encountered people, daily routines, and e xecuting requests? Less than 10% of the time MEMORY - SCORE: 5-SUP SIGNATURE PANEL: The following modified sections: Eating - Score, Grooming - Score, Bathing - Score, Dressing - Upper Body - Score, Dressing - Lower Body - Score, Toileting - Score, Bladder Management - Score, Bowel Man agement - Score, Transfers: Bed, Chair, Wheelchair - Score, Transfers: Toilet - Score, Transfers: Monica wer - Score, Transfers: Tub - Score, Locomotion: Walk - Score, Locomotion: Wheelchair - Score, Compre hension - Score, Expression - Score, Social Interaction - Score, Problem Solving - Score, Memory - Sc ore were [electronically] signed by Bren Hook C.N.A. on MonOct 09 2018 13:03:28 T-0500 (Centra l Daylight Time)
--- NOTE | 2018-10-09 14:28 | FAST ---
ENCOUNTER DATE AND TIME: 10/09/2018 08:00 (CDT) NAME FAITH VANCE DATE OF : 1960 DATE OF ADMISSION: 10/02/2018 19:00 (CDT) PHONE: AGE: 58 N# [id number] GENDER: Male ENCOUNTER PHYSICIAN: Dr. Luis Manuel Corley M.D. 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 EATING: EATING - STEP 1: Does the patient require the assistance of a person or device, or need extra time when eating? No. EATING - SCORE: 7-IND GROOMING: Wash, rinse, and dry face Wash, rinse, and dry hands GROOMING - STEP 1: Does the patient require the assistance of a person or device, or need extra time when grooming? No. GROOMING - SCORE: 7-IND BATHING: Abdomen Buttocks Chest Left arm Left lower leg and foot Left upper leg Perineal area Right arm Right lower leg and foot Right upper leg BATHING - STEP 1: Does the patient require the assistance of a person or device, or need extra time when bathing? Yes. BATHING - STEP 2: Does the patient require the assistance of a helper? Yes. BATHING - STEP 3: How much assistance does the patient require from the helper? Only supervision, cuing, coaxing, instr uctions, encouragement BATHING - SCORE: 5-SUP DRESSING - UPPER BODY: T-shirt/pullover shirt (four steps) ARTICLES SCORE Total number of steps: 4 DRESSING - UPPER BODY - STEP 1: Does the patient require help from a person or device, or need extra time when dressing above the [address]? No. DRESSING - UPPER BODY - SCORE: 7-IND DRESSING - LOWER BODY: Elastic waist pants (three steps) Slip-on shoe - Left foot (one step) Slip-on shoe - Right foot (one step) Sock - Left foot (one step) Sock - Right foot (one step) Underwear (three steps) ARTICLES SCORE Total number of steps: 10 DRESSING - LOWER BODY - STEP 1: Does the patient require help from a person or device, or need extra time when dressing below the [address]? Yes. DRESSING - LOWER BODY - STEP 2: Does the patient require the assistance of a helper? No. Patient requires an assistive device such as a heel coverer. OR s/he takes more than reasonable time as s/he dresses the lower body, OR there is a con cern for safety when s/he dresses the lower body DRESSING - LOWER BODY - SCORE: 6-CASPER TOILETING: Activity did not occur on this shift TOILETING - SCORE: 0-UNK BLADDER MANAGEMENT: Activity did not occur on this shift BLADDER MANAGEMENT - SCORE: 7-IND BOWEL MANAGEMENT: Activity did not occur on this shift BOWEL MANAGEMENT - SCORE: 7-IND TRANSFERS: BED, CHAIR, WHEELCHAIR: Activity did not occur on this shift TRANSFERS: BED, CHAIR, WHEELCHAIR - SCORE: 0-UNK TRANSFERS: TOILET: Activity did not occur on this shift TRANSFERS: TOILET - SCORE: 0-UNK TRANSFERS: SHOWER: TRANSFERS: SHOWER - STEP 1: Does the patient require the assistance of a person or device, or need extra time with shower transfe rs? Yes. TRANSFERS: SHOWER - STEP 2: Does the patient require the assistance of a helper? No. The patient only uses an assistive device, t akes more than reasonable time, OR there is a concern for safety when s/he performs transfers. TRANSFERS: SHOWER - SCORE: 6-CASPER TRANSFERS: TUB: Activity did not occur on this shift TRANSFERS: TUB - SCORE: 0-UNK LOCOMOTION: WALK: Activity did not occur on this shift LOCOMOTION: WALK - SCORE: 0-UNK LOCOMOTION: WHEELCHAIR: Activity did not occur on this shift LOCOMOTION: WHEELCHAIR - SCORE: 0-UNK LOCOMOTION: STAIRS: Activity did not occur on this shift LOCOMOTION: STAIRS - SCORE: 0-UNK COMPREHENSION: COMPREHENSION: TYPE: Both COMPREHENSION - STEP 1: Does the patient require help from a person or device, or need extra time to understand complex and a bstract ideas (such as current events, finances, discharge planning, medical issues, relationships, e tc)? No. COMPREHENSION - STEP 2: Does the patient need extra time, require an assistive device (such as glasses for visual comprehensi on or a hearing aid for auditory comprehension) or does s/he have mild difficulty understanding compl ex and abstract information? No. COMPREHENSION - SCORE: 7-IND EXPRESSION EXPRESSION: TYPE: Both EXPRESSION - STEP 1: Does the patient require help from a person or device, or need extra time expressing complex and abst ract ideas (such as current events, finances, discharge planning, medical issues, relationships, etc) ? No. EXPRESSION - STEP 2: Does the patient need extra time, require an assistive device (such as augmentive communication syste m or a communication board), OR does s/he have mild difficulty expressing complex and abstract ideas (including mild dysarthria or mild word-find problems)? No. EXPRESSION - SCORE: 7-IND SOCIAL INTERACTION: SOCIAL INTERACTION - STEP 1: Does the patient require a helper to interact with others in social and therapeutic situations? No. SOCIAL INTERACTION - STEP 2: Does the patient need extra time in social situations, OR does s/he interact with staff, other patien ts, and family members ONLY in structured environments, OR does s/he require medication for social in teraction? No. SOCIAL INTERACTION - SCORE: 7-IND PROBLEM SOLVING: PROBLEM SOLVING - STEP 1: Does the patient need help from a person or device, or need extra time to solve complex problems such as managing a checking account or confronting interpersonal problems? No. PROBLEM SOLVING - STEP 2: Does the patient require extra time to make decisions or solve problems, OR does s/he have slight dif ficulty reading, initiating, or self-correcting in unfamiliar situations? No. PROBLEM SOLVING - SCORE: 7-IND MEMORY: MEMORY - STEP 1: Does the patient need help from a person or device, or need extra time to remember frequently encount ered people, daily routines, and executing requests? No. MEMORY - STEP 2: Does the patient have slight difficulty recognizing frequently encountered people, daily routines, or executing requests without the need for repetition or using self-initiated or environmental cues to remember? No. MEMORY - SCORE: 7-IND SIGNATURE PANEL: The following modified sections: Eating - Score, Grooming - Score, Bathing - Score, Dressing - Upper Body - Score, Dressing - Lower Body - Score, Toileting - Score, Transfers: Bed, Chair, Wheelchair - S core, Transfers: Toilet - Score, Transfers: Tub - Score, Transfers: Shower - Score, Comprehension - S core, Expression - Score, Social Interaction - Score, Problem Solving - Score, Memory - Score were [e lectronically] signed by Diya Correa OT on MonOct 09 2018 14:28:13 GMT-0500 ([facility])
--- NOTE | 2018-10-09 15:33 | FAST ---
ENCOUNTER DATE AND TIME: 10/09/2018 08:00 (CDT) NAME FAITH VANCE DATE OF : 1960 DATE OF ADMISSION: 10/02/2018 19:00 (CDT) PHONE: AGE: 58 N# [id number] GENDER: Male ENCOUNTER PHYSICIAN: Dr. Luis Manuel Corley M.D. 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 EATING: Activity did not occur on this shift EATING - SCORE: 0-UNK GROOMING: Activity did not occur on this shift GROOMING - SCORE: 0-UNK BATHING: Activity did not occur on this shift BATHING - SCORE: 0-UNK DRESSING - UPPER BODY: Activity did not occur on this shift Patient is not dressing in public clothing ARTICLES SCORE Total number of steps: 0 DRESSING - UPPER BODY - SCORE: 0-UNK DRESSING - LOWER BODY: Activity did not occur on this shift Patient is not dressing in public clothing ARTICLES SCORE Total number of steps: 0 DRESSING - LOWER BODY - SCORE: 0-UNK TOILETING: Activity did not occur on this shift TOILETING - SCORE: 0-UNK BLADDER MANAGEMENT: Activity did not occur on this shift BLADDER MANAGEMENT - SCORE: 7-IND BOWEL MANAGEMENT: Activity did not occur on this shift BOWEL MANAGEMENT - SCORE: 7-IND TRANSFERS: BED, CHAIR, WHEELCHAIR: TRANSFERS: BED, CHAIR, WHEELCHAIR - STEP 1: Does the patient require assistance of a person or device, or need extra time with bed, chair, or whe elchair transfers? Yes. TRANSFERS: BED, CHAIR, WHEELCHAIR - STEP 2: Does the patient require the assistance of a helper? Yes. TRANSFERS: BED, CHAIR, WHEELCHAIR - STEP 3: How much assistance does the patient require from the helper? Only supervision TRANSFERS: BED, CHAIR, WHEELCHAIR - SCORE: 5-SUP TRANSFERS: TOILET: Activity did not occur on this shift TRANSFERS: TOILET - SCORE: 0-UNK TRANSFERS: SHOWER: Activity did not occur on this shift TRANSFERS: SHOWER - SCORE: 0-UNK TRANSFERS: TUB: Activity did not occur on this shift TRANSFERS: TUB - SCORE: 0-UNK LOCOMOTION: WALK: LOCOMOTION: WALK - STEP 1: Does the patient need help from a person or device, or need extra time to walk 150 feet? Yes. LOCOMOTION: WALK - STEP 2: How much assistance does the patient require to walk a minimum of 150 feet? Only supervision, cuing, or coaxing LOCOMOTION: WALK - SCORE: 5-SUP LOCOMOTION: WHEELCHAIR: LOCOMOTION: WHEELCHAIR - STEP 1: Does the patient need help to go 150 feet in a wheelchair? No. LOCOMOTION: WHEELCHAIR - SCORE: 6-CASPER LOCOMOTION: STAIRS: LOCOMOTION: STAIRS - STEP 1: Does the patient need help to go up and down 12 to 14 stairs? Yes. LOCOMOTION: STAIRS - STEP 2: How much assistance does the patient need from the helper to go a minimum of 12 to 14 stairs? Only metzger pervision, cuing, or coaxing LOCOMOTION: STAIRS - SCORE: 5-SUP COMPREHENSION: COMPREHENSION - SCORE: 0-UNK EXPRESSION EXPRESSION - SCORE: 0-UNK SOCIAL INTERACTION: SOCIAL INTERACTION - SCORE: 0-UNK PROBLEM SOLVING: PROBLEM SOLVING - SCORE: 0-UNK MEMORY: MEMORY - SCORE: 0-UNK SIGNATURE PANEL: The following modified sections: Transfers: Bed, Chair, Wheelchair - Score, Transfers: Toilet - Score , Locomotion: Walk - Score, Locomotion: Wheelchair - Score, Locomotion: Stairs - Score were [rosa eastman] signed by Will Raymundo PTA on MonOct 09 2018 15:32:17 T-0500 (Central Daylight Time)
[2018-10-09] MEDS: DOCUSATE NA/SENNA CONC 1 TAB PO SCH (20:19)
[2018-10-09] MEDS: ATORVASTATIN 80 MG TAB PO SCH (20:19)
[2018-10-09] MEDS: MELATONIN 3 MG TABLET PO PRN (20:20)
[2018-10-10] MEDS: HYDROCODONE/APAP 5/325 MG TAB PO PRN ×3 (07:24→19:16)
[2018-10-10] MEDS: PANTOPRAZOLE 40MG TABLET PO SCH (07:25)
[2018-10-10] MEDS: LEVOTHYROXINE SOD 0.05 MG TABLET PO SCH (07:25)
[2018-10-10] MEDS: ENOXAPARIN 40 MG/0.4 ML SQ SCH (07:26)
[2018-10-10] MEDS: LIDOCAINE 5% PATCH TOP SCH (07:26)
[2018-10-10] MEDS: INSULIN -REGULAR HUMAN 50 UNIT/0.5 ML ML SQ SCH ×4 (07:30→21:12)
[2018-10-10] MEDS: NPH (HUMAN) 100 UNITS/ML INSULIN SQ SCH ×2 (07:32→20:06)
[2018-10-10] MEDS: METFORMIN ER 500 MG TAB PO SCH (07:56)
[2018-10-10] MEDS: VENLAFAXINE HCL 75 MG TABLET PO SCH ×2 (07:56→19:16)
[2018-10-10] MEDS: MAGNESIUM OXIDE 400 MG TAB PO SCH ×2 (07:56→19:16)
[2018-10-10] MEDS: CLOPIDOGREL 75 MG TABLET PO SCH (07:56)
[2018-10-10] MEDS: GABAPENTIN 300 MG CAP PO SCH ×3 (07:56→20:04)
[2018-10-10] MEDS: FLUDROCORTISONE 0.1 MG TAB PO SCH (07:57)
[2018-10-10] MEDS: ASPIRIN EC 81 MG TAB PO SCH (07:57)
[2018-10-10] MEDS: TRAMADOL HCL 50 MG TAB PO PRN ×2 (11:48→17:21)
--- NOTE | 2018-10-10 14:36 | FAST ---
SHIFT START DATE/TIME: 10/10/2018 07:00 (CDT) SHIFT END DATE/TIME: 10/10/2018 19:00 (CDT) NAME FAITH VANCE DATE OF : 1960 DATE OF ADMISSION: 10/02/2018 19:00 (CDT) PHONE: AGE: 58 N# [id number] GENDER: Male ENCOUNTER PHYSICIAN: Dr. Luis Manuel Corley M.D. 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 EATING: EATING - STEP 1: Does the patient require the assistance of a person or device, or need extra time when eating? Yes. EATING - STEP 2: Does the patient require the assistance of a helper? No, patient only requires an assistive device, O R s/he takes more than reasonable time to eat, OR there is a safety concern, OR s/he requires modifie d food consistency EATING - SCORE: 6-CASPER GROOMING: Activity did not occur on this shift GROOMING - SCORE: 0-UNK BATHING: Activity did not occur on this shift BATHING - SCORE: 0-UNK DRESSING - UPPER BODY: Activity did not occur on this shift ARTICLES SCORE Total number of steps: 0 DRESSING - UPPER BODY - SCORE: 0-UNK DRESSING - LOWER BODY: Activity did not occur on this shift ARTICLES SCORE Total number of steps: 0 DRESSING - LOWER BODY - SCORE: 0-UNK TOILETING: TOILETING - STEP 1: Does the patient require the assistance of a person or device, or need extra time with toileting? Yes . TOILETING - STEP 2: Does the patient require the assistance of a helper? Yes. TOILETING - STEP 3: How much assistance does the patient require from the helper? Only supervision TOILETING - SCORE: 5-SUP BLADDER MANAGEMENT: BLADDER MANAGEMENT - STEP 1: Does the patient control the bladder completely and intentionally without equipment or devices or med ications, and is always continent? No. BLADDER MANAGEMENT - STEP 2: Does the patient require the assistance of a helper? No, patient requires and independently uses an a ssistive device, such as a urinal, bedpan, bedside commode, catheter, absorbent pad, or collecting de vice BLADDER MANAGEMENT - SCORE: 6-CASPER BOWEL MANAGEMENT: Activity did not occur on this shift BOWEL MANAGEMENT - SCORE: 7-IND TRANSFERS: BED, CHAIR, WHEELCHAIR: TRANSFERS: BED, CHAIR, WHEELCHAIR - STEP 1: Does the patient require assistance of a person or device, or need extra time with bed, chair, or whe elchair transfers? Yes. TRANSFERS: BED, CHAIR, WHEELCHAIR - STEP 2: Does the patient require the assistance of a helper? Yes. TRANSFERS: BED, CHAIR, WHEELCHAIR - STEP 3: How much assistance does the patient require from the helper? Only supervision TRANSFERS: BED, CHAIR, WHEELCHAIR - SCORE: 5-SUP TRANSFERS: TOILET: TRANSFERS: TOILET - STEP 1: Does the patient require the assistance of a person or device, or need extra time with toilet transfe rs? Yes. TRANSFERS: TOILET - STEP 2: Does the patient require the assistance of a helper? Yes. TRANSFERS: TOILET - STEP 3: How much assistance does the patient require from the helper? Only supervision, cuing, coaxing, OR he lp to set out transfer equipment or to lock brakes and/or lift foot rests TRANSFERS: TOILET - SCORE: 5-SUP TRANSFERS: SHOWER: Activity did not occur on this shift TRANSFERS: SHOWER - SCORE: 0-UNK TRANSFERS: TUB: Activity did not occur on this shift TRANSFERS: TUB - SCORE: 0-UNK LOCOMOTION: WALK: Activity did not occur on this shift LOCOMOTION: WALK - SCORE: 0-UNK LOCOMOTION: WHEELCHAIR: Activity did not occur on this shift LOCOMOTION: WHEELCHAIR - SCORE: 0-UNK COMPREHENSION: COMPREHENSION: TYPE: Both COMPREHENSION - STEP 1: Does the patient require help from a person or device, or need extra time to understand complex and a bstract ideas (such as current events, finances, discharge planning, medical issues, relationships, e tc)? No. COMPREHENSION - STEP 2: Does the patient need extra time, require an assistive device (such as glasses for visual comprehensi on or a hearing aid for auditory comprehension) or does s/he have mild difficulty understanding compl ex and abstract information? Yes. COMPREHENSION - SCORE: 6-CASPER EXPRESSION EXPRESSION: TYPE: Both EXPRESSION - STEP 1: Does the patient require help from a person or device, or need extra time expressing complex and abst ract ideas (such as current events, finances, discharge planning, medical issues, relationships, etc) ? No. EXPRESSION - STEP 2: Does the patient need extra time, require an assistive device (such as augmentive communication syste m or a communication board), OR does s/he have mild difficulty expressing complex and abstract ideas (including mild dysarthria or mild word-find problems)? Yes. EXPRESSION - SCORE: 6-CASPER SOCIAL INTERACTION: SOCIAL INTERACTION - STEP 1: Does the patient require a helper to interact with others in social and therapeutic situations? No. SOCIAL INTERACTION - STEP 2: Does the patient need extra time in social situations, OR does s/he interact with staff, other patien ts, and family members ONLY in structured environments, OR does s/he require medication for social in teraction? Yes, patient needs extra time SOCIAL INTERACTION - SCORE: 6-CASPER PROBLEM SOLVING: PROBLEM SOLVING - STEP 1: Does the patient need help from a person or device, or need extra time to solve complex problems such as managing a checking account or confronting interpersonal problems? No. PROBLEM SOLVING - STEP 2: Does the patient require extra time to make decisions or solve problems, OR does s/he have slight dif ficulty reading, initiating, or self-correcting in unfamiliar situations? Yes, patient needs extra ti me. PROBLEM SOLVING - SCORE: 6-CASPER MEMORY: MEMORY - STEP 1: Does the patient need help from a person or device, or need extra time to remember frequently encount ered people, daily routines, and executing requests? No. MEMORY - STEP 2: Does the patient have slight difficulty recognizing frequently encountered people, daily routines, or executing requests without the need for repetition or using self-initiated or environmental cues to remember? Yes. MEMORY - SCORE: 6-CASPER SIGNATURE PANEL: The following modified sections: Eating - Score, Grooming - Score, Bathing - Score, Dressing - Upper Body - Score, Dressing - Lower Body - Score, Toileting - Score, Bladder Management - Score, Bowel Man agement - Score, Transfers: Bed, Chair, Wheelchair - Score, Transfers: Toilet - Score, Transfers: Monica wer - Score, Transfers: Tub - Score, Locomotion: Walk - Score, Locomotion: Wheelchair - Score, Compre hension - Score, Expression - Score, Social Interaction - Score, Problem Solving - Score, Memory - Sc ore were [electronically] signed by Mayco Kirkland on MonOct 10 2018 14:35:57 GMT-0500 (Central Daylight Time)
--- NOTE | 2018-10-10 15:27 | FAST ---
ENCOUNTER DATE AND TIME: 10/10/2018 08:00 (CDT) NAME FAITH VANCE DATE OF : 1960 DATE OF ADMISSION: 10/02/2018 19:00 (CDT) PHONE: AGE: 58 N# [id number] GENDER: Male ENCOUNTER PHYSICIAN: Dr. Luis Manuel Corley M.D. 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 EATING: Activity did not occur on this shift EATING - SCORE: 0-UNK GROOMING: Activity did not occur on this shift GROOMING - SCORE: 0-UNK BATHING: Activity did not occur on this shift BATHING - SCORE: 0-UNK DRESSING - UPPER BODY: Activity did not occur on this shift Patient is not dressing in public clothing ARTICLES SCORE Total number of steps: 0 DRESSING - UPPER BODY - SCORE: 0-UNK DRESSING - LOWER BODY: Activity did not occur on this shift Patient is not dressing in public clothing ARTICLES SCORE Total number of steps: 0 DRESSING - LOWER BODY - SCORE: 0-UNK TOILETING: Activity did not occur on this shift TOILETING - SCORE: 0-UNK BLADDER MANAGEMENT: Activity did not occur on this shift BLADDER MANAGEMENT - SCORE: 7-IND BOWEL MANAGEMENT: Activity did not occur on this shift BOWEL MANAGEMENT - SCORE: 7-IND TRANSFERS: BED, CHAIR, WHEELCHAIR: TRANSFERS: BED, CHAIR, WHEELCHAIR - STEP 1: Does the patient require assistance of a person or device, or need extra time with bed, chair, or whe elchair transfers? Yes. TRANSFERS: BED, CHAIR, WHEELCHAIR - STEP 2: Does the patient require the assistance of a helper? No. Patient only requires an assistive device fo r bed, chair, wheelchair transfers such as a sliding board, grab bar, or brace, OR s/he takes more th an reasonable time, OR there is a safety concern when s/he performs the transfers TRANSFERS: BED, CHAIR, WHEELCHAIR - SCORE: 6-CASPER TRANSFERS: TOILET: Activity did not occur on this shift TRANSFERS: TOILET - SCORE: 0-UNK TRANSFERS: SHOWER: Activity did not occur on this shift TRANSFERS: SHOWER - SCORE: 0-UNK TRANSFERS: TUB: Activity did not occur on this shift TRANSFERS: TUB - SCORE: 0-UNK LOCOMOTION: WALK: LOCOMOTION: WALK - STEP 1: Does the patient need help from a person or device, or need extra time to walk 150 feet? No. LOCOMOTION: WALK - STEP 2: Does the patient need an assistive device (such as an orthosis, prosthesis, crutches, or walker) to g o 150 feet, OR does s/he take more than reasonable time, OR is there a concern for safety? Yes, the p atient needs an assistive device LOCOMOTION: WALK - SCORE: 6-CASPER LOCOMOTION: WHEELCHAIR: LOCOMOTION: WHEELCHAIR - STEP 1: Does the patient need help to go 150 feet in a wheelchair? No. LOCOMOTION: WHEELCHAIR - SCORE: 6-CASPER LOCOMOTION: STAIRS: LOCOMOTION: STAIRS - STEP 1: Does the patient need help to go up and down 12 to 14 stairs? Yes. LOCOMOTION: STAIRS - STEP 2: How much assistance does the patient need from the helper to go a minimum of 12 to 14 stairs? Only metzger pervision, cuing, or coaxing LOCOMOTION: STAIRS - SCORE: 5-SUP COMPREHENSION: COMPREHENSION - SCORE: 0-UNK EXPRESSION EXPRESSION - SCORE: 0-UNK SOCIAL INTERACTION: SOCIAL INTERACTION - SCORE: 0-UNK PROBLEM SOLVING: PROBLEM SOLVING - SCORE: 0-UNK MEMORY: MEMORY - SCORE: 0-UNK SIGNATURE PANEL: The following modified sections: Transfers: Bed, Chair, Wheelchair - Score, Transfers: Toilet - Score , Locomotion: Walk - Score, Locomotion: Wheelchair - Score, Locomotion: Stairs - Score were [electron raiza] signed by Will Raymundo PTA on MonOct 10 2018 15:26:25 GMT-0500 (Central Daylight Time)
[2018-10-10] MEDS: MELATONIN 3 MG TABLET PO PRN (20:03)
[2018-10-10] MEDS: DOCUSATE NA/SENNA CONC 1 TAB PO SCH (20:04)
[2018-10-10] MEDS: ATORVASTATIN 80 MG TAB PO SCH (20:04)
--- NOTE | 2018-10-11 02:38 | FAST ---
SHIFT START DATE/TIME: 10/10/2018 19:00 (CDT) SHIFT END DATE/TIME: 10/11/2018 07:00 (CDT) NAME FAITH VANCE DATE OF : 1960 DATE OF ADMISSION: 10/02/2018 19:00 (CDT) PHONE: AGE: 58 N# [id number] GENDER: Male ENCOUNTER PHYSICIAN: Dr. Luis Manuel Corley M.D. 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 EATING: Activity did not occur on this shift EATING - SCORE: 0-UNK GROOMING: Activity did not occur on this shift GROOMING - SCORE: 0-UNK BATHING: Activity did not occur on this shift BATHING - SCORE: 0-UNK DRESSING - UPPER BODY: Activity did not occur on this shift ARTICLES SCORE Total number of steps: 0 DRESSING - UPPER BODY - SCORE: 0-UNK DRESSING - LOWER BODY: Activity did not occur on this shift ARTICLES SCORE Total number of steps: 0 DRESSING - LOWER BODY - SCORE: 0-UNK TOILETING: TOILETING - STEP 1: Does the patient require the assistance of a person or device, or need extra time with toileting? Yes . TOILETING - STEP 2: Does the patient require the assistance of a helper? Yes. TOILETING - STEP 3: How much assistance does the patient require from the helper? Only supervision TOILETING - SCORE: 5-SUP BLADDER MANAGEMENT: BLADDER MANAGEMENT - STEP 1: Does the patient control the bladder completely and intentionally without equipment or devices or med ications, and is always continent? Yes. BLADDER MANAGEMENT - SCORE: 7-IND BOWEL MANAGEMENT: Activity did not occur on this shift BOWEL MANAGEMENT - SCORE: 7-IND TRANSFERS: BED, CHAIR, WHEELCHAIR: TRANSFERS: BED, CHAIR, WHEELCHAIR - STEP 1: Does the patient require assistance of a person or device, or need extra time with bed, chair, or whe elchair transfers? Yes. TRANSFERS: BED, CHAIR, WHEELCHAIR - STEP 2: Does the patient require the assistance of a helper? Yes. TRANSFERS: BED, CHAIR, WHEELCHAIR - STEP 3: How much assistance does the patient require from the helper? Only supervision TRANSFERS: BED, CHAIR, WHEELCHAIR - SCORE: 5-SUP TRANSFERS: TOILET: TRANSFERS: TOILET - STEP 1: Does the patient require the assistance of a person or device, or need extra time with toilet transfe rs? Yes. TRANSFERS: TOILET - STEP 2: Does the patient require the assistance of a helper? Yes. TRANSFERS: TOILET - STEP 3: How much assistance does the patient require from the helper? Only supervision, cuing, coaxing, OR he lp to set out transfer equipment or to lock brakes and/or lift foot rests TRANSFERS: TOILET - SCORE: 5-SUP TRANSFERS: SHOWER: Activity did not occur on this shift TRANSFERS: SHOWER - SCORE: 0-UNK TRANSFERS: TUB: Activity did not occur on this shift TRANSFERS: TUB - SCORE: 0-UNK LOCOMOTION: WALK: Activity did not occur on this shift LOCOMOTION: WALK - SCORE: 0-UNK LOCOMOTION: WHEELCHAIR: Activity did not occur on this shift LOCOMOTION: WHEELCHAIR - SCORE: 0-UNK COMPREHENSION: COMPREHENSION: TYPE: Both COMPREHENSION - STEP 1: Does the patient require help from a person or device, or need extra time to understand complex and a bstract ideas (such as current events, finances, discharge planning, medical issues, relationships, e tc)? No. COMPREHENSION - STEP 2: Does the patient need extra time, require an assistive device (such as glasses for visual comprehensi on or a hearing aid for auditory comprehension) or does s/he have mild difficulty understanding compl ex and abstract information? No. COMPREHENSION - SCORE: 7-IND EXPRESSION EXPRESSION: TYPE: Both EXPRESSION - STEP 1: Does the patient require help from a person or device, or need extra time expressing complex and abst ract ideas (such as current events, finances, discharge planning, medical issues, relationships, etc) ? No. EXPRESSION - STEP 2: Does the patient need extra time, require an assistive device (such as augmentive communication syste m or a communication board), OR does s/he have mild difficulty expressing complex and abstract ideas (including mild dysarthria or mild word-find problems)? No. EXPRESSION - SCORE: 7-IND SOCIAL INTERACTION: SOCIAL INTERACTION - STEP 1: Does the patient require a helper to interact with others in social and therapeutic situations? No. SOCIAL INTERACTION - STEP 2: Does the patient need extra time in social situations, OR does s/he interact with staff, other patien ts, and family members ONLY in structured environments, OR does s/he require medication for social in teraction? No. SOCIAL INTERACTION - SCORE: 7-IND PROBLEM SOLVING: PROBLEM SOLVING - STEP 1: Does the patient need help from a person or device, or need extra time to solve complex problems such as managing a checking account or confronting interpersonal problems? No. PROBLEM SOLVING - STEP 2: Does the patient require extra time to make decisions or solve problems, OR does s/he have slight dif ficulty reading, initiating, or self-correcting in unfamiliar situations? No. PROBLEM SOLVING - SCORE: 7-IND MEMORY: MEMORY - STEP 1: Does the patient need help from a person or device, or need extra time to remember frequently encount ered people, daily routines, and executing requests? No. MEMORY - STEP 2: Does the patient have slight difficulty recognizing frequently encountered people, daily routines, or executing requests without the need for repetition or using self-initiated or environmental cues to remember? No. MEMORY - SCORE: 7-IND SIGNATURE PANEL: The following modified sections: Eating - Score, Grooming - Score, Bathing - Score, Dressing - Upper Body - Score, Dressing - Lower Body - Score, Toileting - Score, Bladder Management - Score, Bowel Man agement - Score, Transfers: Bed, Chair, Wheelchair - Score, Transfers: Toilet - Score, Transfers: Monica wer - Score, Transfers: Tub - Score, Locomotion: Walk - Score, Locomotion: Wheelchair - Score, Compre hension - Score, Expression - Score, Social Interaction - Score, Problem Solving - Score, Memory - Sc ore were [electronically] signed by Cara Roberts CNA on MonOct 11 2018 02:37:41 T-0500 ([place] Da ylight Time)
[2018-10-11] MEDS: LEVOTHYROXINE SOD 0.05 MG TABLET PO SCH (06:39)
[2018-10-11] MEDS: PANTOPRAZOLE 40MG TABLET PO SCH (06:39)
[2018-10-11 06:52] LABS: Absolute Lymphocytes (CBC) 1.8 K/uL (0.7-4.9); Absolute Monocytes 0.6 K/uL (0.1-1.3); Absolute Neutrophil 3.4 K/uL (1.8-8.0); Basophils % 0.7 % (0-1.3); Eosinophils % 4.4 % (0-4.4); Hematocrit 34.7 % (39.6-49.0); Lymphocytes % 29.4 % (15.3-44.8); Monocytes % 10.3 % (3.3-12.3); RBC Red Blood Cell Count 3.87 M/uL (4.33-5.43)
[2018-10-11 07:11] LABS: BUN Blood Urea Nitrogen 8 mg/dL (7-18); Bicarbonate 30 mmol/L (21-32); Glucose Level 187 mg/dL (74-106); Potassium 4.2 mmol/L (3.5-5.1); Prealbumin 13.5 mg/dL (20-40); Sodium Level 143 mmol/L (136-145)
[2018-10-11] MEDS: ENOXAPARIN 40 MG/0.4 ML SQ SCH (07:14)
[2018-10-11] MEDS: LIDOCAINE 5% PATCH TOP SCH (07:14)
[2018-10-11] MEDS: TRAMADOL HCL 50 MG TAB PO PRN ×2 (07:16→19:26)
[2018-10-11] MEDS: INSULIN -REGULAR HUMAN 50 UNIT/0.5 ML ML SQ SCH ×4 (07:30→20:19)
[2018-10-11] MEDS: NPH (HUMAN) 100 UNITS/ML INSULIN SQ SCH ×2 (08:00→20:21)
[2018-10-11] MEDS: GABAPENTIN 300 MG CAP PO SCH ×3 (08:19→20:21)
[2018-10-11] MEDS: HYDROCODONE/APAP 5/325 MG TAB PO PRN ×2 (08:19→14:05)
[2018-10-11] MEDS: VENLAFAXINE HCL 75 MG TABLET PO SCH ×2 (08:19→19:26)
[2018-10-11] MEDS: MAGNESIUM OXIDE 400 MG TAB PO SCH ×2 (08:20→19:26)
[2018-10-11] MEDS: METFORMIN ER 500 MG TAB PO SCH (08:20)
[2018-10-11] MEDS: CLOPIDOGREL 75 MG TABLET PO SCH (08:21)
[2018-10-11] MEDS: ASPIRIN EC 81 MG TAB PO SCH (08:21)
[2018-10-11] MEDS: FLUDROCORTISONE 0.1 MG TAB PO SCH (08:21)
--- NOTE | 2018-10-11 11:16 | FAST ---
SHIFT START DATE/TIME: 10/11/2018 07:00 (CDT) SHIFT END DATE/TIME: 10/11/2018 19:00 (CDT) NAME FAITH VANCE DATE OF : 1960 DATE OF ADMISSION: 10/02/2018 19:00 (CDT) PHONE: AGE: 58 N# [id number] GENDER: Male ENCOUNTER PHYSICIAN: Dr. Luis Manuel Corley M.D. 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 EATING: EATING - STEP 1: Does the patient require the assistance of a person or device, or need extra time when eating? Yes. EATING - STEP 2: Does the patient require the assistance of a helper? No, patient only requires an assistive device, O R s/he takes more than reasonable time to eat, OR there is a safety concern, OR s/he requires modifie d food consistency EATING - SCORE: 6-CASPER GROOMING: Comb/brush hair Oral care Wash, rinse, and dry face Wash, rinse, and dry hands GROOMING - STEP 1: Does the patient require the assistance of a person or device, or need extra time when grooming? Yes. GROOMING - STEP 2: Does the patient require the assistance of a helper? No. The patient only requires an assistive devic e, OR takes more than reasonable time to groom, OR there is a concern for safety as the patient groom s GROOMING - SCORE: 6-CASPER BATHING: Activity did not occur on this shift BATHING - SCORE: 0-UNK DRESSING - UPPER BODY: Activity did not occur on this shift ARTICLES SCORE Total number of steps: 0 DRESSING - UPPER BODY - SCORE: 0-UNK DRESSING - LOWER BODY: Activity did not occur on this shift ARTICLES SCORE Total number of steps: 0 DRESSING - LOWER BODY - SCORE: 0-UNK TOILETING: TOILETING - STEP 1: Does the patient require the assistance of a person or device, or need extra time with toileting? Yes . TOILETING - STEP 2: Does the patient require the assistance of a helper? No. TOILETING - SCORE: 6-CASPER BLADDER MANAGEMENT: BLADDER MANAGEMENT - STEP 1: Does the patient control the bladder completely and intentionally without equipment or devices or med ications, and is always continent? No. BLADDER MANAGEMENT - STEP 2: Does the patient require the assistance of a helper? No, patient requires and independently uses an a ssistive device, such as a urinal, bedpan, bedside commode, catheter, absorbent pad, or collecting de vice BLADDER MANAGEMENT - SCORE: 6-CASPER BOWEL MANAGEMENT: Activity did not occur on this shift BOWEL MANAGEMENT - SCORE: 7-IND TRANSFERS: BED, CHAIR, WHEELCHAIR: TRANSFERS: BED, CHAIR, WHEELCHAIR - STEP 1: Does the patient require assistance of a person or device, or need extra time with bed, chair, or whe elchair transfers? Yes. TRANSFERS: BED, CHAIR, WHEELCHAIR - STEP 2: Does the patient require the assistance of a helper? No. Patient only requires an assistive device fo r bed, chair, wheelchair transfers such as a sliding board, grab bar, or brace, OR s/he takes more th an reasonable time, OR there is a safety concern when s/he performs the transfers TRANSFERS: BED, CHAIR, WHEELCHAIR - SCORE: 6-CASPER TRANSFERS: TOILET: TRANSFERS: TOILET - STEP 1: Does the patient require the assistance of a person or device, or need extra time with toilet transfe rs? Yes. TRANSFERS: TOILET - STEP 2: Does the patient require the assistance of a helper? No. Patient only requires an assistive device metzger ch as a grab bar or special seat, OR s/he takes more than reasonable time to perform toilet transfers , OR there is a safety concern when s/he performs toilet transfers. TRANSFERS: TOILET - SCORE: 6-CASPER TRANSFERS: SHOWER: Activity did not occur on this shift TRANSFERS: SHOWER - SCORE: 0-UNK TRANSFERS: TUB: Activity did not occur on this shift TRANSFERS: TUB - SCORE: 0-UNK LOCOMOTION: WALK: Activity did not occur on this shift LOCOMOTION: WALK - SCORE: 0-UNK LOCOMOTION: WHEELCHAIR: Activity did not occur on this shift LOCOMOTION: WHEELCHAIR - SCORE: 0-UNK COMPREHENSION: COMPREHENSION - SCORE: 0-UNK EXPRESSION EXPRESSION - SCORE: 0-UNK SOCIAL INTERACTION: SOCIAL INTERACTION - SCORE: 0-UNK PROBLEM SOLVING: PROBLEM SOLVING - SCORE: 0-UNK MEMORY: MEMORY - SCORE: 0-UNK SIGNATURE PANEL: The following modified sections: Eating - Score, Grooming - Score, Bathing - Score, Dressing - Upper Body - Score, Dressing - Lower Body - Score, Toileting - Score, Bladder Management - Score, Bowel Man agement - Score, Transfers: Bed, Chair, Wheelchair - Score, Transfers: Toilet - Score, Transfers: Monica wer - Score, Transfers: Tub - Score, Locomotion: Walk - Score, Locomotion: Wheelchair - Score, Compre hension - Score, Expression - Score, Social Interaction - Score, Problem Solving - Score, Memory - Sc ore were [electronically] signed by Mayco Kirkland on MonOct 11 2018 11:16:14 GMT-0500 (Central Daylight Time)
--- NOTE | 2018-10-11 15:40 | FAST ---
ENCOUNTER DATE AND TIME: 10/11/2018 08:00 (CDT) NAME FAITH VANCE DATE OF : 1960 DATE OF ADMISSION: 10/02/2018 19:00 (CDT) PHONE: AGE: 58 N# [id number] GENDER: Male ENCOUNTER PHYSICIAN: Dr. Luis Manuel Corley M.D. 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 EATING: Activity did not occur on this shift EATING - SCORE: 0-UNK GROOMING: Activity did not occur on this shift GROOMING - SCORE: 0-UNK BATHING: Activity did not occur on this shift BATHING - SCORE: 0-UNK DRESSING - UPPER BODY: Activity did not occur on this shift Patient is not dressing in public clothing ARTICLES SCORE Total number of steps: 0 DRESSING - UPPER BODY - SCORE: 0-UNK DRESSING - LOWER BODY: Activity did not occur on this shift Patient is not dressing in public clothing ARTICLES SCORE Total number of steps: 0 DRESSING - LOWER BODY - SCORE: 0-UNK TOILETING: Activity did not occur on this shift TOILETING - SCORE: 0-UNK BLADDER MANAGEMENT: Activity did not occur on this shift BLADDER MANAGEMENT - SCORE: 7-IND BOWEL MANAGEMENT: Activity did not occur on this shift BOWEL MANAGEMENT - SCORE: 7-IND TRANSFERS: BED, CHAIR, WHEELCHAIR: TRANSFERS: BED, CHAIR, WHEELCHAIR - STEP 1: Does the patient require assistance of a person or device, or need extra time with bed, chair, or whe elchair transfers? Yes. TRANSFERS: BED, CHAIR, WHEELCHAIR - STEP 2: Does the patient require the assistance of a helper? No. Patient only requires an assistive device fo r bed, chair, wheelchair transfers such as a sliding board, grab bar, or brace, OR s/he takes more th an reasonable time, OR there is a safety concern when s/he performs the transfers TRANSFERS: BED, CHAIR, WHEELCHAIR - SCORE: 6-CASPER TRANSFERS: TOILET: Activity did not occur on this shift TRANSFERS: TOILET - SCORE: 0-UNK TRANSFERS: SHOWER: Activity did not occur on this shift TRANSFERS: SHOWER - SCORE: 0-UNK TRANSFERS: TUB: Activity did not occur on this shift TRANSFERS: TUB - SCORE: 0-UNK LOCOMOTION: WALK: LOCOMOTION: WALK - STEP 1: Does the patient need help from a person or device, or need extra time to walk 150 feet? No. LOCOMOTION: WALK - STEP 2: Does the patient need an assistive device (such as an orthosis, prosthesis, crutches, or walker) to g o 150 feet, OR does s/he take more than reasonable time, OR is there a concern for safety? Yes, the p atient needs an assistive device LOCOMOTION: WALK - SCORE: 6-CASPER LOCOMOTION: WHEELCHAIR: LOCOMOTION: WHEELCHAIR - STEP 1: Does the patient need help to go 150 feet in a wheelchair? No. LOCOMOTION: WHEELCHAIR - SCORE: 6-CASPER LOCOMOTION: STAIRS: LOCOMOTION: STAIRS - STEP 1: Does the patient need help to go up and down 12 to 14 stairs? No. LOCOMOTION: STAIRS - STEP 2: Does the patient require an assistive device - such as handrails or cane - to go up and down one flig ht of stairs, OR does s/he take more than reasonable time, OR is there a concern for safety? Yes, the patient requires an assistive device LOCOMOTION: STAIRS - SCORE: 6-CASPER COMPREHENSION: COMPREHENSION - SCORE: 0-UNK EXPRESSION EXPRESSION - SCORE: 0-UNK SOCIAL INTERACTION: SOCIAL INTERACTION - SCORE: 0-UNK PROBLEM SOLVING: PROBLEM SOLVING - SCORE: 0-UNK MEMORY: MEMORY - SCORE: 0-UNK SIGNATURE PANEL: The following modified sections: Transfers: Bed, Chair, Wheelchair - Score, Transfers: Toilet - Score , Locomotion: Walk - Score, Locomotion: Wheelchair - Score, Locomotion: Stairs - Score were [rosa eastman] signed by Will Raymundo PTA on MonOct 11 2018 15:39:38 GMT-0500 (Central Daylight Time)
--- NOTE | 2018-10-11 16:39 | FAST ---
ENCOUNTER DATE AND TIME: 10/10/2018 08:00 (CDT) NAME FAITH VANCE DATE OF : 1960 DATE OF ADMISSION: 10/02/2018 19:00 (CDT) PHONE: AGE: 58 N# [id number] GENDER: Male ENCOUNTER PHYSICIAN: Dr. Luis Manuel Corley M.D. 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 EATING: EATING - STEP 1: Does the patient require the assistance of a person or device, or need extra time when eating? No. EATING - SCORE: 7-IND GROOMING: Comb/brush hair Oral care Wash, rinse, and dry face Wash, rinse, and dry hands GROOMING - STEP 1: Does the patient require the assistance of a person or device, or need extra time when grooming? No. GROOMING - SCORE: 7-IND BATHING: Abdomen Buttocks Chest Left arm Left lower leg and foot Left upper leg Perineal area Right arm Right lower leg and foot Right upper leg BATHING - STEP 1: Does the patient require the assistance of a person or device, or need extra time when bathing? Yes. BATHING - STEP 2: Does the patient require the assistance of a helper? No. The patient only requires an assistive devic e such as a bath yanet, OR the patient takes more than reasonable time to bathe, OR there is a concern for safety such as regulating water temperature as the patient bathes. BATHING - SCORE: 6-CASPER DRESSING - UPPER BODY: T-shirt/pullover shirt (four steps) ARTICLES SCORE Total number of steps: 4 DRESSING - UPPER BODY - STEP 1: Does the patient require help from a person or device, or need extra time when dressing above the [address]? No. DRESSING - UPPER BODY - SCORE: 7-IND DRESSING - LOWER BODY: Elastic waist pants (three steps) Slip-on shoe - Left foot (one step) Slip-on shoe - Right foot (one step) Sock - Left foot (one step) Sock - Right foot (one step) Underwear (three steps) ARTICLES SCORE Total number of steps: 10 DRESSING - LOWER BODY - STEP 1: Does the patient require help from a person or device, or need extra time when dressing below the [address]? Yes. DRESSING - LOWER BODY - STEP 2: Does the patient require the assistance of a helper? No. Patient requires an assistive device such as a equity trader. OR s/he takes more than reasonable time as s/he dresses the lower body, OR there is a con cern for safety when s/he dresses the lower body DRESSING - LOWER BODY - SCORE: 6-CASPER TOILETING: TOILETING - STEP 1: Does the patient require the assistance of a person or device, or need extra time with toileting? Yes . TOILETING - STEP 2: Does the patient require the assistance of a helper? No. TOILETING - SCORE: 6-CASPER BLADDER MANAGEMENT: Activity did not occur on this shift BLADDER MANAGEMENT - SCORE: 7-IND BOWEL MANAGEMENT: Activity did not occur on this shift BOWEL MANAGEMENT - SCORE: 7-IND TRANSFERS: BED, CHAIR, WHEELCHAIR: Activity did not occur on this shift TRANSFERS: BED, CHAIR, WHEELCHAIR - SCORE: 0-UNK TRANSFERS: TOILET: TRANSFERS: TOILET - STEP 1: Does the patient require the assistance of a person or device, or need extra time with toilet transfe rs? Yes. TRANSFERS: TOILET - STEP 2: Does the patient require the assistance of a helper? No. Patient only requires an assistive device metzger ch as a grab bar or special seat, OR s/he takes more than reasonable time to perform toilet transfers , OR there is a safety concern when s/he performs toilet transfers. TRANSFERS: TOILET - SCORE: 6-CASPER TRANSFERS: SHOWER: TRANSFERS: SHOWER - STEP 1: Does the patient require the assistance of a person or device, or need extra time with shower transfe rs? Yes. TRANSFERS: SHOWER - STEP 2: Does the patient require the assistance of a helper? No. The patient only uses an assistive device, t akes more than reasonable time, OR there is a concern for safety when s/he performs transfers. TRANSFERS: SHOWER - SCORE: 6-CASPER TRANSFERS: TUB: Activity did not occur on this shift TRANSFERS: TUB - SCORE: 0-UNK LOCOMOTION: WALK: Activity did not occur on this shift LOCOMOTION: WALK - SCORE: 0-UNK LOCOMOTION: WHEELCHAIR: Activity did not occur on this shift LOCOMOTION: WHEELCHAIR - SCORE: 0-UNK LOCOMOTION: STAIRS: Activity did not occur on this shift LOCOMOTION: STAIRS - SCORE: 0-UNK COMPREHENSION: COMPREHENSION: TYPE: Both COMPREHENSION - STEP 1: Does the patient require help from a person or device, or need extra time to understand complex and a bstract ideas (such as current events, finances, discharge planning, medical issues, relationships, e tc)? No. COMPREHENSION - STEP 2: Does the patient need extra time, require an assistive device (such as glasses for visual comprehensi on or a hearing aid for auditory comprehension) or does s/he have mild difficulty understanding compl ex and abstract information? No. COMPREHENSION - SCORE: 7-IND EXPRESSION EXPRESSION: TYPE: Both EXPRESSION - STEP 1: Does the patient require help from a person or device, or need extra time expressing complex and abst ract ideas (such as current events, finances, discharge planning, medical issues, relationships, etc) ? No. EXPRESSION - STEP 2: Does the patient need extra time, require an assistive device (such as augmentive communication syste m or a communication board), OR does s/he have mild difficulty expressing complex and abstract ideas (including mild dysarthria or mild word-find problems)? No. EXPRESSION - SCORE: 7-IND SOCIAL INTERACTION: SOCIAL INTERACTION - STEP 1: Does the patient require a helper to interact with others in social and therapeutic situations? No. SOCIAL INTERACTION - STEP 2: Does the patient need extra time in social situations, OR does s/he interact with staff, other patien ts, and family members ONLY in structured environments, OR does s/he require medication for social in teraction? No. SOCIAL INTERACTION - SCORE: 7-IND PROBLEM SOLVING: PROBLEM SOLVING - STEP 1: Does the patient need help from a person or device, or need extra time to solve complex problems such as managing a checking account or confronting interpersonal problems? No. PROBLEM SOLVING - STEP 2: Does the patient require extra time to make decisions or solve problems, OR does s/he have slight dif ficulty reading, initiating, or self-correcting in unfamiliar situations? No. PROBLEM SOLVING - SCORE: 7-IND MEMORY: MEMORY - STEP 1: Does the patient need help from a person or device, or need extra time to remember frequently encount ered people, daily routines, and executing requests? No. MEMORY - STEP 2: Does the patient have slight difficulty recognizing frequently encountered people, daily routines, or executing requests without the need for repetition or using self-initiated or environmental cues to remember? No. MEMORY - SCORE: 7-IND SIGNATURE PANEL: The following modified sections: Eating - Score, Grooming - Score, Bathing - Score, Dressing - Upper Body - Score, Dressing - Lower Body - Score, Toileting - Score, Transfers: Bed, Chair, Wheelchair - S core, Transfers: Toilet - Score, Transfers: Tub - Score, Transfers: Shower - Score, Comprehension - S core, Expression - Score, Social Interaction - Score, Problem Solving - Score, Memory - Score were [e lectronically] signed by Diya Correa OT on MonOct 11 2018 16:38:19 T-0500 ([place] [facility])
--- NOTE | 2018-10-11 18:04 | R.PN ---
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 Pt denied any depression. Ambulated 275' with contact guard assistance using a rolling walker. Self-propelled wheelchair 500' with modified independence. Hgb 12.3, prealbumin 13.5, glucose 104 to 238. VITAL SIGNS Temperature: 98.3 F SBP/DBP: 111/68 Pulse: 73 Resp: 16 MEDICATION ALLERGIES: No Known Drug Allergies (NKDA) ENVIRONMENTAL ALLERGIES: None Known - Substance Allergies None Known - Other Allergies None Known NURSING: - Shower allowing shower - Lab Results blood Sugar Check ACHS - Bladder care per protocol - Skin care per protocol PRECAUTIONS: - Weight Bearing Precaution WBAT left LE ACTIVITIES OOB only with supervision THERAPIES: - Occupational Therapy Evaluate and Treat. Visual Perceptual Training. Cognitive Retraining. - Speech Therapy Cognitive Training. Memory Strategies. Expressive Language Skills. Speech Intelligibility Training. R eceptive Language Skills. - Physical Therapy Evaluate and Treat. PHYSICAL EXAM - Gen Alert and awake Lying in bed No apparent distress Oriented to: person, time, and place - Skin No breakdown No abnormalities - Eyes No abnormalities - ENMT No abnormalities - Neck No abnormalities - CVS RRR - Chest No abnormalities - Resp Clear to auscultation - Abd Soft - GI nondistended Deferred - No abnormalities - Ext No significant edema - MSK 4+/5 weakness in left upper and lower extremity - Neuro 4/5 strength left upper and lower extremities. - Psych No abnormalities ASSESSMENT: Pt. is a 58 yo Right-handed male.On 09/28/2018 Pt. presented to [facility] with sudden onset of le ft-side superimposed on chronic left lower extremity weakness secondary to lumbar cord and root compr ession.On 09/28/2018 Pt. presented to [facility] with sudden onset of left-side weakness.On 09/28/2018 he w as admitted to [facility] with diagnosis Right CVA.His impairment category is Stroke 01 - Left Body (Right Brain) (01.1).Pre-morbidly, Pt. was independent/mod-I in Self-Care, Sphincter Control, Transfers Con trol, Locomotion, Communication, and Social Cognition; and he had good Sphincter Control.Currently, uyko merlos has deficits of Self-Care, Transfers Control, Locomotion, Endurance, Balance, and Safety Awareness. Pt. is now referred to [facility] for acute in-patient rehabilitation in order to maximize patient's functional independence in activities of daily living, strength, ROM, and mobi lity.- Rehab Goal Patient has realistic goal of being discharged at assistance level 6-Reddy to reside at Home with Fam tomy/Relatives. MDM/PLAN: - Physical Therapy Weakness - to improve, our physical therapists will perform initial evaluation of pt's status upon a dmission and devise an individualized program for Aquatic Therapy, Neuromuscular Reeducation, and Str engthening Poor balance - to improve, our physical therapists will perform initial evaluation of pt's status up on admission and devise an individualized program for Balance Training Inability to transfer - to improve, our physical therapists will perform initial evaluation of pt's status upon admission and devise an individualized program for Bed mobility Need in caregiver upon discharge - to improve, our physical therapists will perform initial evaluati on of pt's status upon admission and devise an individualized program for Caregiver Training Poor endurance - to improve, our physical therapists will perform initial evaluation of pt's status upon admission and devise an individualized program for Endurance Training Gait dysfunction - to improve, our physical therapists will perform initial evaluation of pt's statu s upon admission and devise an individualized program for Gait Training, and Wheel Chair mobility Need for home safety evaluation - to improve, our physical therapists will perform initial evaluatio n of pt's status upon admission and devise an individualized program for Home Evaluation New precaution - to improve, our physical therapists will perform initial evaluation of pt's status upon admission and devise an individualized program for Patient precaution education Edema - to improve, our physical therapists will perform initial evaluation of pt's status upon admi ssion and devise an individualized program for Elevation Training, and Lymphedema Therapy - Occupational Therapy Weakness - to improve, our occupation therapists will perform initial evaluation of pt's status upon admission and devise an individualized program for Aquatic Therapy, Balance, Endurance, UE ROM, and UE strengthening ADL deficits - to improve, our occupation therapists will perform initial evaluation of pt's status upon admission and devise an individualized program for Bathing, Bed mobility, Community Reintegratio n, Cooking, Dressing, Eating, Fine Motor Skills, Grooming, Homemaking, Kitchen Mobility, Laundry, Pat ient Education, Safety Awareness, Splinting - Positioning, Transfers(Toilet, Tub, Shower), and Wheel Chair Management Need for client care specialist - to improve, our occupation therapists will perform initial evaluation of pt's status upon admission and devise an individualized program for Caregiver Training - Diet Type Continue Regular - Diet - Liquid Texture Continue Regular - Tube Feed Continue N/A - Lab Results blood Sugar Check ACHS - Bladder care per protocol - Weight Bearing Precaution WBAT left LE - Skin care per protocol - Diet - Solid Texture Continue Regular - Shower allowing shower for Dementia, TBI, Stroke, or others - Balance for Weakness - Bed mobility for ADL deficits - Cognition - orientation for Dementia - Dressing Status: indep for ADL deficits - Eating for ADL deficits - Grooming Status: indep for ADL deficits - Toilet Transfer Status: indep for ADL deficits - Bed to Chair Transfer SELECT Status: indep for ADL deficits - Hygiene for ADL deficits - Tub Transfer for ADL deficits Status: indep - Shower Transfer for ADL deficits Status: indep - Wheel Chair to Bed Transfer Status: indep for ADL deficits FUNCTIONAL STATUS: UPDATED AT WEEKLY TEAM CONFERENCE - Bladder Same accident frequency: 7-Ind - No accidents in the past 7 days - Bowel Same accident frequency: 7-Ind - No accidents in the past 7 days - Walking Same score based on distance walked: 1(<=50ft) - Wheelchair Same score based on distance traveled: 0(N/A) FUNCTIONAL STATUS: - Self-Care A. Eating sup B. Grooming sup C. Bathing sup D. Dressing - Upper sup E. Dressing - Lower CGA F. Toileting sup - Sphincter Control G: Bladder control Ind H: Bowel control Ind - Transfers Control I. Bed/Chair/Wheelchair Dat J. Toilet Dat K. Tub/Shower ADNO - Locomotion L. Walk/Wheelchair (C) Dat L. Walk/Wheelchair (W) Dat M. Stairs ADNO - Communication N. Comprehension (B) Ind O. Expression (B) Ind - Social Cognition P. Social Interaction Ind Q. Problem Solving Ind R. Memory Ind - Endurance Fair - Balance Fair - Safety Awareness Fair CURRENT FUNC. DEFICITS: Self-Care, Transfers Control, Locomotion, Endurance, Balance, and Safety Awareness SIGNATURE PANEL: (CDT)
[2018-10-11] MEDS: ATORVASTATIN 80 MG TAB PO SCH (20:21)
[2018-10-11] MEDS: DOCUSATE NA/SENNA CONC 1 TAB PO SCH (20:21)
[2018-10-11] MEDS: MELATONIN 3 MG TABLET PO PRN (20:21)
--- NOTE | 2018-10-12 02:56 | FAST ---
SHIFT START DATE/TIME: 10/11/2018 19:00 (CDT) SHIFT END DATE/TIME: 10/12/2018 07:00 (CDT) NAME FAITH VANCE DATE OF : 1960 DATE OF ADMISSION: 10/02/2018 19:00 (CDT) PHONE: AGE: 58 N# [id number] GENDER: Male ENCOUNTER PHYSICIAN: Dr. Luis Manuel Corley M.D. 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 EATING: Activity did not occur on this shift EATING - SCORE: 0-UNK GROOMING: Activity did not occur on this shift GROOMING - SCORE: 0-UNK BATHING: Activity did not occur on this shift BATHING - SCORE: 0-UNK DRESSING - UPPER BODY: Activity did not occur on this shift ARTICLES SCORE Total number of steps: 0 DRESSING - UPPER BODY - SCORE: 0-UNK DRESSING - LOWER BODY: Activity did not occur on this shift ARTICLES SCORE Total number of steps: 0 DRESSING - LOWER BODY - SCORE: 0-UNK TOILETING: TOILETING - STEP 1: Does the patient require the assistance of a person or device, or need extra time with toileting? Yes . TOILETING - STEP 2: Does the patient require the assistance of a helper? Yes. TOILETING - STEP 3: How much assistance does the patient require from the helper? Only supervision TOILETING - SCORE: 5-SUP BLADDER MANAGEMENT: Activity did not occur on this shift BLADDER MANAGEMENT - SCORE: 7-IND BOWEL MANAGEMENT: Activity did not occur on this shift BOWEL MANAGEMENT - SCORE: 7-IND TRANSFERS: BED, CHAIR, WHEELCHAIR: TRANSFERS: BED, CHAIR, WHEELCHAIR - STEP 1: Does the patient require assistance of a person or device, or need extra time with bed, chair, or whe elchair transfers? Yes. TRANSFERS: BED, CHAIR, WHEELCHAIR - STEP 2: Does the patient require the assistance of a helper? Yes. TRANSFERS: BED, CHAIR, WHEELCHAIR - STEP 3: How much assistance does the patient require from the helper? Only supervision TRANSFERS: BED, CHAIR, WHEELCHAIR - SCORE: 5-SUP TRANSFERS: TOILET: TRANSFERS: TOILET - STEP 1: Does the patient require the assistance of a person or device, or need extra time with toilet transfe rs? Yes. TRANSFERS: TOILET - STEP 2: Does the patient require the assistance of a helper? Yes. TRANSFERS: TOILET - STEP 3: How much assistance does the patient require from the helper? Only supervision, cuing, coaxing, OR he lp to set out transfer equipment or to lock brakes and/or lift foot rests TRANSFERS: TOILET - SCORE: 5-SUP TRANSFERS: SHOWER: Activity did not occur on this shift TRANSFERS: SHOWER - SCORE: 0-UNK TRANSFERS: TUB: Activity did not occur on this shift TRANSFERS: TUB - SCORE: 0-UNK LOCOMOTION: WALK: Activity did not occur on this shift LOCOMOTION: WALK - SCORE: 0-UNK LOCOMOTION: WHEELCHAIR: Activity did not occur on this shift LOCOMOTION: WHEELCHAIR - SCORE: 0-UNK COMPREHENSION: COMPREHENSION: TYPE: Both COMPREHENSION - STEP 1: Does the patient require help from a person or device, or need extra time to understand complex and a bstract ideas (such as current events, finances, discharge planning, medical issues, relationships, e tc)? No. COMPREHENSION - STEP 2: Does the patient need extra time, require an assistive device (such as glasses for visual comprehensi on or a hearing aid for auditory comprehension) or does s/he have mild difficulty understanding compl ex and abstract information? No. COMPREHENSION - SCORE: 7-IND EXPRESSION EXPRESSION: TYPE: Both EXPRESSION - STEP 1: Does the patient require help from a person or device, or need extra time expressing complex and abst ract ideas (such as current events, finances, discharge planning, medical issues, relationships, etc) ? No. EXPRESSION - STEP 2: Does the patient need extra time, require an assistive device (such as augmentive communication syste m or a communication board), OR does s/he have mild difficulty expressing complex and abstract ideas (including mild dysarthria or mild word-find problems)? No. EXPRESSION - SCORE: 7-IND SOCIAL INTERACTION: SOCIAL INTERACTION - STEP 1: Does the patient require a helper to interact with others in social and therapeutic situations? No. SOCIAL INTERACTION - STEP 2: Does the patient need extra time in social situations, OR does s/he interact with staff, other patien ts, and family members ONLY in structured environments, OR does s/he require medication for social in teraction? No. SOCIAL INTERACTION - SCORE: 7-IND PROBLEM SOLVING: PROBLEM SOLVING - STEP 1: Does the patient need help from a person or device, or need extra time to solve complex problems such as managing a checking account or confronting interpersonal problems? No. PROBLEM SOLVING - STEP 2: Does the patient require extra time to make decisions or solve problems, OR does s/he have slight dif ficulty reading, initiating, or self-correcting in unfamiliar situations? No. PROBLEM SOLVING - SCORE: 7-IND MEMORY: MEMORY - STEP 1: Does the patient need help from a person or device, or need extra time to remember frequently encount ered people, daily routines, and executing requests? No. MEMORY - STEP 2: Does the patient have slight difficulty recognizing frequently encountered people, daily routines, or executing requests without the need for repetition or using self-initiated or environmental cues to remember? No. MEMORY - SCORE: 7-IND SIGNATURE PANEL: The following modified sections: Eating - Score, Grooming - Score, Bathing - Score, Dressing - Upper Body - Score, Dressing - Lower Body - Score, Toileting - Score, Bladder Management - Score, Bowel Man agement - Score, Transfers: Bed, Chair, Wheelchair - Score, Transfers: Toilet - Score, Transfers: Monica wer - Score, Transfers: Tub - Score, Locomotion: Walk - Score, Comprehension - Score, Expression - Sc ore, Social Interaction - Score, Problem Solving - Score, Memory - Score, Locomotion: Wheelchair - Sc ore were [electronically] signed by Cara Roberts CNA on MonOct 12 2018 02:54:39 [id number] ([facility] Time)
[2018-10-12] MEDS: LEVOTHYROXINE SOD 0.05 MG TABLET PO SCH (07:10)
[2018-10-12] MEDS: HYDROCODONE/APAP 5/325 MG TAB PO PRN ×2 (07:10→20:05)
[2018-10-12] MEDS: PANTOPRAZOLE 40MG TABLET PO SCH (07:10)
[2018-10-12] MEDS: INSULIN -REGULAR HUMAN 50 UNIT/0.5 ML ML SQ SCH ×4 (07:30→20:25)
[2018-10-12] MEDS: VENLAFAXINE HCL 75 MG TABLET PO SCH ×2 (08:00→20:05)
[2018-10-12] MEDS: LIDOCAINE 5% PATCH TOP SCH (08:43)
[2018-10-12] MEDS: NPH (HUMAN) 100 UNITS/ML INSULIN SQ SCH ×2 (08:44→23:10)
[2018-10-12] MEDS: ENOXAPARIN 40 MG/0.4 ML SQ SCH (08:44)
[2018-10-12] MEDS: CLOPIDOGREL 75 MG TABLET PO SCH (08:45)
[2018-10-12] MEDS: ASPIRIN EC 81 MG TAB PO SCH (08:45)
[2018-10-12] MEDS: METFORMIN ER 500 MG TAB PO SCH (08:45)
[2018-10-12] MEDS: MAGNESIUM OXIDE 400 MG TAB PO SCH ×2 (08:45→20:05)
[2018-10-12] MEDS: FLUDROCORTISONE 0.1 MG TAB PO SCH (08:45)
[2018-10-12] MEDS: GABAPENTIN 300 MG CAP PO SCH ×3 (08:45→20:05)
--- NOTE | 2018-10-12 09:47 | P.RH.PN ---
Estimated Length of Stay: 12 Expected Discharge Date: 10/13/18 Discharge Disposition Plan: Home Family Support: Yes Long-Term Goal: Mobility, Transfers, Self Care Vital Signs: Last Vital Signs Temp 97.1 F 10/12/18 06:30 Pulse 85 10/12/18 06:30 Resp 16 10/12/18 06:30 BP 102/68 10/12/18 06:30 Pulse Ox 91 10/12/18 06:30 Laboratory: Laboratory Last Values WBC 6.2 K/uL (4.3-10.9) 10/11/18 06:32 RBC 3.87 M/uL (4.33-5.43) L 10/11/18 06:32 Hgb 12.3 g/dL (13.6-17.9) L 10/11/18 06:32 Hct 34.7 % (39.6-49.0) L 10/11/18 06:32 MCV 89.5 fL (80-100) 10/11/18 06:32 MCH 31.7 pg (27.0-35.0) 10/11/18 06:32 MCHC 35.4 g/dL (32.0-36.0) 10/11/18 06:32 RDW 13.2 % (12.1-15.2) 10/11/18 06:32 Plt Count 204 K/uL (152-406) 10/11/18 06:32 MPV 9.0 fL (7.6-11.3) 10/11/18 06:32 Neutrophils % 55.2 % (41.7-73.7) 10/11/18 06:32 Lymphocytes % 29.4 % (15.3-44.8) 10/11/18 06:32 Monocytes % 10.3 % (3.3-12.3) 10/11/18 06:32 Eosinophils % 4.4 % (0-4.4) 10/11/18 06:32 Basophils % 0.7 % (0-1.3) 10/11/18 06:32 Absolute Neutrophils 3.4 K/uL (1.8-8.0) 10/11/18 06:32 Absolute Lymphocytes 1.8 K/uL (0.7-4.9) 10/11/18 06:32 Absolute Monocytes 0.6 K/uL (0.1-1.3) 10/11/18 06:32 Absolute Eosinophils 0.3 K/uL (0-0.5) 10/11/18 06:32 Absolute Basophils 0.0 K/uL (0-0.5) 10/11/18 06:32 Sodium 143 mmol/L (136-145) 10/11/18 06:32 Potassium 4.2 mmol/L (3.5-5.1) 10/11/18 06:32 Chloride 108 mmol/L (98-107) H 10/11/18 06:32 Carbon Dioxide 30 mmol/L (21-32) 10/11/18 06:32 BUN 8 mg/dL (7-18) 10/11/18 06:32 Creatinine 0.60 mg/dL (0.55-1.3) 10/11/18 06:32 Estimated GFR > 90 mL/min (=/>90) 10/11/18 06:32 Glucose 187 mg/dL (74-106) H 10/11/18 06:32 POC Glucose 138 mg/dl (65-120) H 10/12/18 07:54 Calcium 8.6 mg/dL (8.5-10.1) 10/11/18 06:32 Magnesium 2.0 mg/dL (1.8-2.4) 10/03/18 05:52 Creatine Kinase 52 U/L (39-308) 10/08/18 09:43 CK-MB (CK-2) 1.2 ng/mL (0.3-3.6) 10/08/18 09:43 Troponin I < 0.02 ng/mL (0.0-0.045) 10/08/18 09:43 Albumin 3.0 g/dL (3.4-5.0) L 10/11/18 06:32 Prealbumin 13.5 mg/dL (20-40) L 10/11/18 06:32 Urine Color Yellow 10/02/18 20:50 Urine Appearance Clear 10/02/18 20:50 Urine pH 5.5 (5.0-7.0) 10/02/18 20:50 Ur Specific [place] >=1.030 (1.005-1.030) 10/02/18 20:50 Urine Ketones Negative (NEG) 10/02/18 20:50 Urine Blood Negative (NEG) 10/02/18 20:50 Urine Nitrite Negative (NEG) 10/02/18 20:50 Urine Bilirubin Negative (NEG) 10/02/18 20:50 Urine Urobilinogen 0.2 mg/dL (0.2-1.0) 10/02/18 20:50 Ur Leukocyte Esterase Negative (NEG) 10/02/18 20:50 Urine RBC <5 /HPF (NONE SEEN) 10/02/18 20:50 Urine WBC <5 /HPF (<5) 10/02/18 20:50 Ur Squamous Epith Cells MOLDING MACHINE SETTER 10/02/18 20:50 Urine Bacteria <20 /HPF (NONE SEEN) 10/02/18 20:50 Urine Culture Reflexed Not needed 10/02/18 20:50 Urine Glucose 3+ (NEG) H 10/02/18 20:50 Urine Total Protein Negative (NEG) 10/02/18 20:50 Weight: 182 lb 9.6 oz Wound Present: No Closed Surgical Incision Present: No Negative Pressure Wound Therapy Present: No Physician Update: He is doing very well and is at modified independence with ADLs, transfers and mobilization. His labs are stable. He will be discharged home in the AM. Medical Issues: DVt Prophylaxis - Lovenox 40mg SQ Daily Pain Issues: Gabapentin 900mg TID. [place] 5/325mg Q4H PRN. Tramadol 50mg Q6H PRN. Lidoderm 2 patch daily Functional Improvement: Patient has met all short-term and long-term goals. Patient presents w/ good work ethic and shows good overall safety awareness. Functional Improvement Occupational Therapy: Patient has demonstrated good performance with all ADL tasks, from w/c and RW level. Good participation with therapy, and improved overall endurance/strength with all functional tasks. Speech Therapy Update: Pt.'s oropharyngeal swallow is WFL; he tolerates mechanical soft solids and thin liquids without difficulty. Due to lack of dentition he should remain on mechanical soft solids. Pt.'s speech, language, and cognitive functioning is WFL; at baseline/highest practical level. Pt. is d /c from ST effective today. Summary: Patient's care plan and podiatric aide goals have been reviewed and revised as necessary. Please see the Rehabilitation Signature page for all necessary signatures.
--- NOTE | 2018-10-12 12:17 | FAST ---
ENCOUNTER DATE AND TIME: 10/12/2018 08:00 (CDT) NAME FAITH VANCE DATE OF : 1960 DATE OF ADMISSION: 10/02/2018 19:00 (CDT) PHONE: AGE: 58 N# [id number] GENDER: Male ENCOUNTER PHYSICIAN: Dr. Luis Manuel Corley M.D. 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 EATING: Activity did not occur on this shift EATING - SCORE: 0-UNK GROOMING: Activity did not occur on this shift GROOMING - SCORE: 0-UNK BATHING: Activity did not occur on this shift BATHING - SCORE: 0-UNK DRESSING - UPPER BODY: Activity did not occur on this shift Patient is not dressing in public clothing ARTICLES SCORE Total number of steps: 0 DRESSING - UPPER BODY - SCORE: 0-UNK DRESSING - LOWER BODY: Activity did not occur on this shift Patient is not dressing in public clothing ARTICLES SCORE Total number of steps: 0 DRESSING - LOWER BODY - SCORE: 0-UNK TOILETING: Activity did not occur on this shift TOILETING - SCORE: 0-UNK BLADDER MANAGEMENT: Activity did not occur on this shift BLADDER MANAGEMENT - SCORE: 7-IND BOWEL MANAGEMENT: Activity did not occur on this shift BOWEL MANAGEMENT - SCORE: 7-IND TRANSFERS: BED, CHAIR, WHEELCHAIR: TRANSFERS: BED, CHAIR, WHEELCHAIR - STEP 1: Does the patient require assistance of a person or device, or need extra time with bed, chair, or whe elchair transfers? Yes. TRANSFERS: BED, CHAIR, WHEELCHAIR - STEP 2: Does the patient require the assistance of a helper? No. Patient only requires an assistive device fo r bed, chair, wheelchair transfers such as a sliding board, grab bar, or brace, OR s/he takes more th an reasonable time, OR there is a safety concern when s/he performs the transfers TRANSFERS: BED, CHAIR, WHEELCHAIR - SCORE: 6-CASPER TRANSFERS: TOILET: TRANSFERS: TOILET - STEP 1: Does the patient require the assistance of a person or device, or need extra time with toilet transfe rs? Yes. TRANSFERS: TOILET - STEP 2: Does the patient require the assistance of a helper? No. Patient only requires an assistive device metzger ch as a grab bar or special seat, OR s/he takes more than reasonable time to perform toilet transfers , OR there is a safety concern when s/he performs toilet transfers. TRANSFERS: TOILET - SCORE: 6-CASPER TRANSFERS: SHOWER: Activity did not occur on this shift TRANSFERS: SHOWER - SCORE: 0-UNK TRANSFERS: TUB: Activity did not occur on this shift TRANSFERS: TUB - SCORE: 0-UNK LOCOMOTION: WALK: LOCOMOTION: WALK - STEP 1: Does the patient need help from a person or device, or need extra time to walk 150 feet? Yes. LOCOMOTION: WALK - STEP 2: How much assistance does the patient require to walk a minimum of 150 feet? Only supervision, cuing, or coaxing LOCOMOTION: WALK - SCORE: 5-SUP LOCOMOTION: WHEELCHAIR: LOCOMOTION: WHEELCHAIR - STEP 1: Does the patient need help to go 150 feet in a wheelchair? Yes. LOCOMOTION: WHEELCHAIR - STEP 2: How much assistance does the patient need from the helper? Only supervision, cuing, or coaxing LOCOMOTION: WHEELCHAIR - SCORE: 5-SUP LOCOMOTION: STAIRS: LOCOMOTION: STAIRS - STEP 1: Does the patient need help to go up and down 12 to 14 stairs? Yes. LOCOMOTION: STAIRS - STEP 2: How much assistance does the patient need from the helper to go a minimum of 12 to 14 stairs? Only metzger pervision, cuing, or coaxing LOCOMOTION: STAIRS - SCORE: 5-SUP COMPREHENSION: COMPREHENSION - SCORE: 0-UNK EXPRESSION EXPRESSION - SCORE: 0-UNK SOCIAL INTERACTION: SOCIAL INTERACTION - SCORE: 0-UNK PROBLEM SOLVING: PROBLEM SOLVING - SCORE: 0-UNK MEMORY: MEMORY - SCORE: 0-UNK SIGNATURE PANEL: The following modified sections: Transfers: Bed, Chair, Wheelchair - Score, Transfers: Toilet - Score , Locomotion: Walk - Score, Locomotion: Wheelchair - Score, Locomotion: Stairs - Score were [rosa eastman] signed by Baron Yanez PTA on MonOct 12 2018 12:16:45 GMT-0500 (Central Daylight Time)
[2018-10-12] MEDS: TRAMADOL HCL 50 MG TAB PO PRN (12:31)
--- NOTE | 2018-10-12 13:36 | FAST ---
ENCOUNTER DATE AND TIME: 10/12/2018 08:00 (CDT) NAME FAITH VANCE DATE OF : 1960 DATE OF ADMISSION: 10/02/2018 19:00 (CDT) PHONE: AGE: 58 N# [id number] GENDER: Male ENCOUNTER PHYSICIAN: Dr. Luis Manuel Corely M.D. 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 EATING: Activity did not occur on this shift EATING - SCORE: 0-UNK GROOMING: Comb/brush hair Wash, rinse, and dry face Wash, rinse, and dry hands GROOMING - STEP 1: Does the patient require the assistance of a person or device, or need extra time when grooming? No. GROOMING - SCORE: 7-IND BATHING: Abdomen Buttocks Chest Left arm Left lower leg and foot Left upper leg Perineal area Right arm Right lower leg and foot Right upper leg BATHING - STEP 1: Does the patient require the assistance of a person or device, or need extra time when bathing? Yes. BATHING - STEP 2: Does the patient require the assistance of a helper? No. The patient only requires an assistive devic e such as a bath yanet, OR the patient takes more than reasonable time to bathe, OR there is a concern for safety such as regulating water temperature as the patient bathes. BATHING - SCORE: 6-CASPER DRESSING - UPPER BODY: T-shirt/pullover shirt (four steps) ARTICLES SCORE Total number of steps: 4 DRESSING - UPPER BODY - STEP 1: Does the patient require help from a person or device, or need extra time when dressing above the [address]? No. DRESSING - UPPER BODY - SCORE: 7-IND DRESSING - LOWER BODY: Elastic waist pants (three steps) Slip-on shoe - Left foot (one step) Slip-on shoe - Right foot (one step) Sock - Left foot (one step) Sock - Right foot (one step) Underwear (three steps) ARTICLES SCORE Total number of steps: 10 DRESSING - LOWER BODY - STEP 1: Does the patient require help from a person or device, or need extra time when dressing below the [address]? Yes. DRESSING - LOWER BODY - STEP 2: Does the patient require the assistance of a helper? No. Patient requires an assistive device such as a technical data analyst. OR s/he takes more than reasonable time as s/he dresses the lower body, OR there is a con cern for safety when s/he dresses the lower body DRESSING - LOWER BODY - SCORE: 6-CASPER TOILETING: TOILETING - STEP 1: Does the patient require the assistance of a person or device, or need extra time with toileting? Yes . TOILETING - STEP 2: Does the patient require the assistance of a helper? No. TOILETING - SCORE: 6-CASPER BLADDER MANAGEMENT: Activity did not occur on this shift BLADDER MANAGEMENT - SCORE: 7-IND BOWEL MANAGEMENT: Activity did not occur on this shift BOWEL MANAGEMENT - SCORE: 7-IND TRANSFERS: BED, CHAIR, WHEELCHAIR: TRANSFERS: BED, CHAIR, WHEELCHAIR - STEP 1: Does the patient require assistance of a person or device, or need extra time with bed, chair, or whe elchair transfers? Yes. TRANSFERS: BED, CHAIR, WHEELCHAIR - STEP 2: Does the patient require the assistance of a helper? No. Patient only requires an assistive device fo r bed, chair, wheelchair transfers such as a sliding board, grab bar, or brace, OR s/he takes more th an reasonable time, OR there is a safety concern when s/he performs the transfers TRANSFERS: BED, CHAIR, WHEELCHAIR - SCORE: 6-CASPER TRANSFERS: TOILET: TRANSFERS: TOILET - STEP 1: Does the patient require the assistance of a person or device, or need extra time with toilet transfe rs? Yes. TRANSFERS: TOILET - STEP 2: Does the patient require the assistance of a helper? No. Patient only requires an assistive device metzger ch as a grab bar or special seat, OR s/he takes more than reasonable time to perform toilet transfers , OR there is a safety concern when s/he performs toilet transfers. TRANSFERS: TOILET - SCORE: 6-CASPER TRANSFERS: SHOWER: TRANSFERS: SHOWER - STEP 1: Does the patient require the assistance of a person or device, or need extra time with shower transfe rs? Yes. TRANSFERS: SHOWER - STEP 2: Does the patient require the assistance of a helper? No. The patient only uses an assistive device, t akes more than reasonable time, OR there is a concern for safety when s/he performs transfers. TRANSFERS: SHOWER - SCORE: 6-CASPER TRANSFERS: TUB: Activity did not occur on this shift TRANSFERS: TUB - SCORE: 0-UNK LOCOMOTION: WALK: Activity did not occur on this shift LOCOMOTION: WALK - SCORE: 0-UNK LOCOMOTION: WHEELCHAIR: Activity did not occur on this shift LOCOMOTION: WHEELCHAIR - SCORE: 0-UNK LOCOMOTION: STAIRS: Activity did not occur on this shift LOCOMOTION: STAIRS - SCORE: 0-UNK COMPREHENSION: COMPREHENSION: TYPE: Both COMPREHENSION - STEP 1: Does the patient require help from a person or device, or need extra time to understand complex and a bstract ideas (such as current events, finances, discharge planning, medical issues, relationships, e tc)? No. COMPREHENSION - STEP 2: Does the patient need extra time, require an assistive device (such as glasses for visual comprehensi on or a hearing aid for auditory comprehension) or does s/he have mild difficulty understanding compl ex and abstract information? No. COMPREHENSION - SCORE: 7-IND EXPRESSION EXPRESSION: TYPE: Both EXPRESSION - STEP 1: Does the patient require help from a person or device, or need extra time expressing complex and abst ract ideas (such as current events, finances, discharge planning, medical issues, relationships, etc) ? No. EXPRESSION - STEP 2: Does the patient need extra time, require an assistive device (such as augmentive communication syste m or a communication board), OR does s/he have mild difficulty expressing complex and abstract ideas (including mild dysarthria or mild word-find problems)? No. EXPRESSION - SCORE: 7-IND SOCIAL INTERACTION: SOCIAL INTERACTION - STEP 1: Does the patient require a helper to interact with others in social and therapeutic situations? No. SOCIAL INTERACTION - STEP 2: Does the patient need extra time in social situations, OR does s/he interact with staff, other patien ts, and family members ONLY in structured environments, OR does s/he require medication for social in teraction? No. SOCIAL INTERACTION - SCORE: 7-IND PROBLEM SOLVING: PROBLEM SOLVING - STEP 1: Does the patient need help from a person or device, or need extra time to solve complex problems such as managing a checking account or confronting interpersonal problems? No. PROBLEM SOLVING - STEP 2: Does the patient require extra time to make decisions or solve problems, OR does s/he have slight dif ficulty reading, initiating, or self-correcting in unfamiliar situations? No. PROBLEM SOLVING - SCORE: 7-IND MEMORY: MEMORY - STEP 1: Does the patient need help from a person or device, or need extra time to remember frequently encount ered people, daily routines, and executing requests? No. MEMORY - STEP 2: Does the patient have slight difficulty recognizing frequently encountered people, daily routines, or executing requests without the need for repetition or using self-initiated or environmental cues to remember? No. MEMORY - SCORE: 7-IND SIGNATURE PANEL: The following modified sections: Eating - Score, Grooming - Score, Bathing - Score, Dressing - Upper Body - Score, Dressing - Lower Body - Score, Toileting - Score, Transfers: Bed, Chair, Wheelchair - S core, Transfers: Toilet - Score, Transfers: Shower - Score, Transfers: Tub - Score, Comprehension - S core, Expression - Score, Social Interaction - Score, Problem Solving - Score, Memory - Score were [e lectronically] signed by Minnie Garza OT on MonOct 12 2018 13:35:48 T-0500 ([facility] Time)
--- NOTE | 2018-10-12 17:56 | FAST ---
SHIFT START DATE/TIME: 10/12/2018 07:00 (CDT) SHIFT END DATE/TIME: 10/12/2018 19:00 (CDT) NAME FAITH VANCE DATE OF : 1960 DATE OF ADMISSION: 10/02/2018 19:00 (CDT) PHONE: AGE: 58 N# [id number] GENDER: Male ENCOUNTER PHYSICIAN: Dr. Luis Manuel Corley M.D. 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 EATING: EATING - STEP 1: Does the patient require the assistance of a person or device, or need extra time when eating? Yes. EATING - STEP 2: Does the patient require the assistance of a helper? No, patient only requires an assistive device, O R s/he takes more than reasonable time to eat, OR there is a safety concern, OR s/he requires modifie d food consistency EATING - SCORE: 6-CASPER GROOMING: Oral care Wash, rinse, and dry face Wash, rinse, and dry hands GROOMING - STEP 1: Does the patient require the assistance of a person or device, or need extra time when grooming? Yes. GROOMING - STEP 2: Does the patient require the assistance of a helper? No. The patient only requires an assistive devic e, OR takes more than reasonable time to groom, OR there is a concern for safety as the patient groom s GROOMING - SCORE: 6-CASPER BATHING: Activity did not occur on this shift BATHING - SCORE: 0-UNK DRESSING - UPPER BODY: T-shirt/pullover shirt (four steps) ARTICLES SCORE Total number of steps: 4 DRESSING - UPPER BODY - STEP 1: Does the patient require help from a person or device, or need extra time when dressing above the [address]? Yes. DRESSING - UPPER BODY - STEP 2: Does the patient require the assistance of a helper? No. Patient only requires an assistive device, s uch as a button hook, velcro, or lead cashier. OR s/he takes more than reasonable time as s/he dresses the upper body. OR there is a concern for safety when s/he dresses the upper body DRESSING - UPPER BODY - SCORE: 6-CASPER DRESSING - LOWER BODY: Elastic waist pants (three steps) ARTICLES SCORE Total number of steps: 3 DRESSING - LOWER BODY - STEP 1: Does the patient require help from a person or device, or need extra time when dressing below the [address]? Yes. DRESSING - LOWER BODY - STEP 2: Does the patient require the assistance of a helper? No. Patient requires an assistive device such as a lead cashier. OR s/he takes more than reasonable time as s/he dresses the lower body, OR there is a con cern for safety when s/he dresses the lower body DRESSING - LOWER BODY - SCORE: 6-CASPER TOILETING: TOILETING - STEP 1: Does the patient require the assistance of a person or device, or need extra time with toileting? Yes . TOILETING - STEP 2: Does the patient require the assistance of a helper? No. TOILETING - SCORE: 6-CASPER BLADDER MANAGEMENT: BLADDER MANAGEMENT - STEP 1: Does the patient control the bladder completely and intentionally without equipment or devices or med ications, and is always continent? Yes. BLADDER MANAGEMENT - SCORE: 7-IND BLADDER MANAGEMENT - FREQUENCY OF ACCIDENTS: BLADDER MANAGEMENT(FA) - STEP 1: How many accidents has the patient had during the current shift? 0 BOWEL MANAGEMENT: BOWEL MANAGEMENT - STEP 1: Does the patient control bowels completely and intentionally without equipment devices or medications AND is always continent? Yes. BOWEL MANAGEMENT - SCORE: 7-IND BOWEL MANAGEMENT - FREQUENCY OF ACCIDENTS: BOWEL MANAGEMENT(FA) - STEP 1: How many accidents has the patient had during the current shift? 0 TRANSFERS: BED, CHAIR, WHEELCHAIR: TRANSFERS: BED, CHAIR, WHEELCHAIR - STEP 1: Does the patient require assistance of a person or device, or need extra time with bed, chair, or whe elchair transfers? Yes. TRANSFERS: BED, CHAIR, WHEELCHAIR - STEP 2: Does the patient require the assistance of a helper? No. Patient only requires an assistive device fo r bed, chair, wheelchair transfers such as a sliding board, grab bar, or brace, OR s/he takes more th an reasonable time, OR there is a safety concern when s/he performs the transfers TRANSFERS: BED, CHAIR, WHEELCHAIR - SCORE: 6-CASPER TRANSFERS: TOILET: TRANSFERS: TOILET - STEP 1: Does the patient require the assistance of a person or device, or need extra time with toilet transfe rs? Yes. TRANSFERS: TOILET - STEP 2: Does the patient require the assistance of a helper? No. Patient only requires an assistive device metzger ch as a grab bar or special seat, OR s/he takes more than reasonable time to perform toilet transfers , OR there is a safety concern when s/he performs toilet transfers. TRANSFERS: TOILET - SCORE: 6-CASPER TRANSFERS: SHOWER: Activity did not occur on this shift TRANSFERS: SHOWER - SCORE: 0-UNK TRANSFERS: TUB: Activity did not occur on this shift TRANSFERS: TUB - SCORE: 0-UNK LOCOMOTION: WALK: Activity did not occur on this shift LOCOMOTION: WALK - SCORE: 0-UNK LOCOMOTION: WHEELCHAIR: Activity did not occur on this shift LOCOMOTION: WHEELCHAIR - SCORE: 0-UNK COMPREHENSION: COMPREHENSION - SCORE: 0-UNK EXPRESSION EXPRESSION - SCORE: 0-UNK SOCIAL INTERACTION: SOCIAL INTERACTION - SCORE: 0-UNK PROBLEM SOLVING: PROBLEM SOLVING - SCORE: 0-UNK MEMORY: MEMORY - SCORE: 0-UNK SIGNATURE PANEL: The following modified sections: Eating - Score, Grooming - Score, Bathing - Score, Dressing - Upper Body - Score, Dressing - Lower Body - Score, Toileting - Score, Bladder Management - Score, Bowel Man agement - Score, Transfers: Bed, Chair, Wheelchair - Score, Transfers: Toilet - Score, Transfers: Monica wer - Score, Transfers: Tub - Score, Locomotion: Walk - Score, Locomotion: Wheelchair - Score, Compre hension - Score, Expression - Score, Social Interaction - Score, Problem Solving - Score, Memory - Sc ore were [electronically] signed by Pratibha Grier CNA on MonOct 12 2018 17:54:52 T-0500 ([facility])
[2018-10-12] MEDS: ATORVASTATIN 80 MG TAB PO SCH (20:04)
[2018-10-12] MEDS: DOCUSATE NA/SENNA CONC 1 TAB PO SCH (20:04)
[2018-10-12] MEDS: MELATONIN 3 MG TABLET PO PRN (20:06)
--- NOTE | 2018-10-13 02:28 | FAST ---
SHIFT START DATE/TIME: 10/12/2018 19:00 (CDT) SHIFT END DATE/TIME: 10/13/2018 07:00 (CDT) NAME FAITH VANCE DATE OF : 1960 DATE OF ADMISSION: 10/02/2018 19:00 (CDT) PHONE: AGE: 58 N# [id number] GENDER: Male ENCOUNTER PHYSICIAN: Dr. Luis Manuel Corley M.D. 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 EATING: Activity did not occur on this shift EATING - SCORE: 0-UNK GROOMING: Activity did not occur on this shift GROOMING - SCORE: 0-UNK BATHING: Activity did not occur on this shift BATHING - SCORE: 0-UNK DRESSING - UPPER BODY: Patient is not dressing in public clothing ARTICLES SCORE Total number of steps: 0 DRESSING - UPPER BODY - SCORE: 0-UNK DRESSING - LOWER BODY: Patient is not dressing in public clothing ARTICLES SCORE Total number of steps: 0 DRESSING - LOWER BODY - SCORE: 0-UNK TOILETING: TOILETING - STEP 1: Does the patient require the assistance of a person or device, or need extra time with toileting? Yes . TOILETING - STEP 2: Does the patient require the assistance of a helper? No. TOILETING - SCORE: 6-CASPER BLADDER MANAGEMENT: BLADDER MANAGEMENT - STEP 1: Does the patient control the bladder completely and intentionally without equipment or devices or med ications, and is always continent? No. BLADDER MANAGEMENT - STEP 2: Does the patient require the assistance of a helper? No, patient requires and independently uses an a ssistive device, such as a urinal, bedpan, bedside commode, catheter, absorbent pad, or collecting de vice BLADDER MANAGEMENT - SCORE: 6-CASPER BOWEL MANAGEMENT: Activity did not occur on this shift BOWEL MANAGEMENT - SCORE: 7-IND TRANSFERS: BED, CHAIR, WHEELCHAIR: TRANSFERS: BED, CHAIR, WHEELCHAIR - STEP 1: Does the patient require assistance of a person or device, or need extra time with bed, chair, or whe elchair transfers? Yes. TRANSFERS: BED, CHAIR, WHEELCHAIR - STEP 2: Does the patient require the assistance of a helper? No. Patient only requires an assistive device fo r bed, chair, wheelchair transfers such as a sliding board, grab bar, or brace, OR s/he takes more th an reasonable time, OR there is a safety concern when s/he performs the transfers TRANSFERS: BED, CHAIR, WHEELCHAIR - SCORE: 6-CASPER TRANSFERS: TOILET: TRANSFERS: TOILET - STEP 1: Does the patient require the assistance of a person or device, or need extra time with toilet transfe rs? Yes. TRANSFERS: TOILET - STEP 2: Does the patient require the assistance of a helper? No. Patient only requires an assistive device metzger ch as a grab bar or special seat, OR s/he takes more than reasonable time to perform toilet transfers , OR there is a safety concern when s/he performs toilet transfers. TRANSFERS: TOILET - SCORE: 6-CASPER TRANSFERS: SHOWER: Activity did not occur on this shift TRANSFERS: SHOWER - SCORE: 0-UNK TRANSFERS: TUB: Activity did not occur on this shift TRANSFERS: TUB - SCORE: 0-UNK LOCOMOTION: WALK: Activity did not occur on this shift LOCOMOTION: WALK - SCORE: 0-UNK LOCOMOTION: WHEELCHAIR: Activity did not occur on this shift LOCOMOTION: WHEELCHAIR - SCORE: 0-UNK COMPREHENSION: COMPREHENSION: TYPE: Both COMPREHENSION - STEP 1: Does the patient require help from a person or device, or need extra time to understand complex and a bstract ideas (such as current events, finances, discharge planning, medical issues, relationships, e tc)? No. COMPREHENSION - STEP 2: Does the patient need extra time, require an assistive device (such as glasses for visual comprehensi on or a hearing aid for auditory comprehension) or does s/he have mild difficulty understanding compl ex and abstract information? Yes. COMPREHENSION - SCORE: 6-CASPER EXPRESSION EXPRESSION: TYPE: Both EXPRESSION - STEP 1: Does the patient require help from a person or device, or need extra time expressing complex and abst ract ideas (such as current events, finances, discharge planning, medical issues, relationships, etc) ? No. EXPRESSION - STEP 2: Does the patient need extra time, require an assistive device (such as augmentive communication syste m or a communication board), OR does s/he have mild difficulty expressing complex and abstract ideas (including mild dysarthria or mild word-find problems)? Yes. EXPRESSION - SCORE: 6-CASPER SOCIAL INTERACTION: SOCIAL INTERACTION - STEP 1: Does the patient require a helper to interact with others in social and therapeutic situations? No. SOCIAL INTERACTION - STEP 2: Does the patient need extra time in social situations, OR does s/he interact with staff, other patien ts, and family members ONLY in structured environments, OR does s/he require medication for social in teraction? Yes, patient needs extra time SOCIAL INTERACTION - SCORE: 6-CASPER PROBLEM SOLVING: PROBLEM SOLVING - STEP 1: Does the patient need help from a person or device, or need extra time to solve complex problems such as managing a checking account or confronting interpersonal problems? No. PROBLEM SOLVING - STEP 2: Does the patient require extra time to make decisions or solve problems, OR does s/he have slight dif ficulty reading, initiating, or self-correcting in unfamiliar situations? Yes, patient needs extra ti me. PROBLEM SOLVING - SCORE: 6-CASPER MEMORY: MEMORY - STEP 1: Does the patient need help from a person or device, or need extra time to remember frequently encount ered people, daily routines, and executing requests? No. MEMORY - STEP 2: Does the patient have slight difficulty recognizing frequently encountered people, daily routines, or executing requests without the need for repetition or using self-initiated or environmental cues to remember? Yes. MEMORY - SCORE: 6-CASPER
[2018-10-13] MEDS: LEVOTHYROXINE SOD 0.05 MG TABLET PO SCH (06:53)
[2018-10-13] MEDS: ENOXAPARIN 40 MG/0.4 ML SQ SCH (06:53)
[2018-10-13] MEDS: PANTOPRAZOLE 40MG TABLET PO SCH (06:53)
[2018-10-13] MEDS: INSULIN -REGULAR HUMAN 50 UNIT/0.5 ML ML SQ SCH (07:20)
[2018-10-13] MEDS: NPH (HUMAN) 100 UNITS/ML INSULIN SQ SCH (08:00)
[2018-10-13] MEDS: VENLAFAXINE HCL 75 MG TABLET PO SCH (08:05)
[2018-10-13] MEDS: LIDOCAINE 5% PATCH TOP SCH (08:05)
[2018-10-13] MEDS: GABAPENTIN 300 MG CAP PO SCH (08:06)
[2018-10-13] MEDS: CLOPIDOGREL 75 MG TABLET PO SCH (08:09)
[2018-10-13] MEDS: ASPIRIN EC 81 MG TAB PO SCH (08:09)
[2018-10-13] MEDS: TRAMADOL HCL 50 MG TAB PO PRN (08:09)
[2018-10-13] MEDS: MAGNESIUM OXIDE 400 MG TAB PO SCH (08:10)
[2018-10-13] MEDS: FLUDROCORTISONE 0.1 MG TAB PO SCH (08:10)
[2018-10-13] MEDS: METFORMIN ER 500 MG TAB PO SCH (08:10)
[2018-10-13 09:27] VITALS: BP 93/53; TEMP 97.6
--- NOTE | 2018-10-13 10:23 | FAST ---
SHIFT START DATE/TIME: 10/13/2018 07:00 (CDT) SHIFT END DATE/TIME: 10/13/2018 19:00 (CDT) NAME FAITH VANCE DATE OF : 1960 DATE OF ADMISSION: 10/02/2018 19:00 (CDT) PHONE: AGE: 58 N# [id number] GENDER: Male ENCOUNTER PHYSICIAN: Dr. Luis Manuel Corley M.D. 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 EATING: EATING - STEP 1: Does the patient require the assistance of a person or device, or need extra time when eating? No. EATING - SCORE: 7-IND GROOMING: Comb/brush hair Wash, rinse, and dry face Wash, rinse, and dry hands GROOMING - STEP 1: Does the patient require the assistance of a person or device, or need extra time when grooming? Yes. GROOMING - STEP 2: Does the patient require the assistance of a helper? No. The patient only requires an assistive devic e, OR takes more than reasonable time to groom, OR there is a concern for safety as the patient groom s GROOMING - SCORE: 6-CASPER BATHING: Activity did not occur on this shift BATHING - SCORE: 0-UNK DRESSING - UPPER BODY: T-shirt/pullover shirt (four steps) ARTICLES SCORE Total number of steps: 4 DRESSING - UPPER BODY - STEP 1: Does the patient require help from a person or device, or need extra time when dressing above the [address]? No. DRESSING - UPPER BODY - SCORE: 7-IND DRESSING - LOWER BODY: Slip-on shoe - Left foot (one step) Slip-on shoe - Right foot (one step) ARTICLES SCORE Total number of steps: 2 DRESSING - LOWER BODY - STEP 1: Does the patient require help from a person or device, or need extra time when dressing below the [address]? Yes. DRESSING - LOWER BODY - STEP 2: Does the patient require the assistance of a helper? No. Patient requires an assistive device such as a distillery miller helper. OR s/he takes more than reasonable time as s/he dresses the lower body, OR there is a con cern for safety when s/he dresses the lower body DRESSING - LOWER BODY - SCORE: 6-CASPER TOILETING: TOILETING - STEP 1: Does the patient require the assistance of a person or device, or need extra time with toileting? Yes . TOILETING - STEP 2: Does the patient require the assistance of a helper? No. TOILETING - SCORE: 6-CASPER BLADDER MANAGEMENT: BLADDER MANAGEMENT - STEP 1: Does the patient control the bladder completely and intentionally without equipment or devices or med ications, and is always continent? No. BLADDER MANAGEMENT - STEP 2: Does the patient require the assistance of a helper? No, patient requires and independently uses an a ssistive device, such as a urinal, bedpan, bedside commode, catheter, absorbent pad, or collecting de vice BLADDER MANAGEMENT - SCORE: 6-CASPER BLADDER MANAGEMENT - FREQUENCY OF ACCIDENTS: BLADDER MANAGEMENT(FA) - STEP 1: How many accidents has the patient had during the current shift? 0 BOWEL MANAGEMENT: Activity did not occur on this shift BOWEL MANAGEMENT - SCORE: 7-IND BOWEL MANAGEMENT - FREQUENCY OF ACCIDENTS: BOWEL MANAGEMENT(FA) - STEP 1: How many accidents has the patient had during the current shift? 0 TRANSFERS: BED, CHAIR, WHEELCHAIR: TRANSFERS: BED, CHAIR, WHEELCHAIR - STEP 1: Does the patient require assistance of a person or device, or need extra time with bed, chair, or whe elchair transfers? Yes. TRANSFERS: BED, CHAIR, WHEELCHAIR - STEP 2: Does the patient require the assistance of a helper? No. Patient only requires an assistive device fo r bed, chair, wheelchair transfers such as a sliding board, grab bar, or brace, OR s/he takes more th an reasonable time, OR there is a safety concern when s/he performs the transfers TRANSFERS: BED, CHAIR, WHEELCHAIR - SCORE: 6-CASPER TRANSFERS: TOILET: TRANSFERS: TOILET - STEP 1: Does the patient require the assistance of a person or device, or need extra time with toilet transfe rs? Yes. TRANSFERS: TOILET - STEP 2: Does the patient require the assistance of a helper? No. Patient only requires an assistive device metzger ch as a grab bar or special seat, OR s/he takes more than reasonable time to perform toilet transfers , OR there is a safety concern when s/he performs toilet transfers. TRANSFERS: TOILET - SCORE: 6-CASPER TRANSFERS: SHOWER: Activity did not occur on this shift TRANSFERS: SHOWER - SCORE: 0-UNK TRANSFERS: TUB: Activity did not occur on this shift TRANSFERS: TUB - SCORE: 0-UNK LOCOMOTION: WALK: Activity did not occur on this shift LOCOMOTION: WALK - SCORE: 0-UNK LOCOMOTION: WHEELCHAIR: Activity did not occur on this shift LOCOMOTION: WHEELCHAIR - SCORE: 0-UNK COMPREHENSION: COMPREHENSION: TYPE: Both COMPREHENSION - STEP 1: Does the patient require help from a person or device, or need extra time to understand complex and a bstract ideas (such as current events, finances, discharge planning, medical issues, relationships, e tc)? No. COMPREHENSION - STEP 2: Does the patient need extra time, require an assistive device (such as glasses for visual comprehensi on or a hearing aid for auditory comprehension) or does s/he have mild difficulty understanding compl ex and abstract information? Yes. COMPREHENSION - SCORE: 6-CASPER EXPRESSION EXPRESSION: TYPE: Both EXPRESSION - STEP 1: Does the patient require help from a person or device, or need extra time expressing complex and abst ract ideas (such as current events, finances, discharge planning, medical issues, relationships, etc) ? No. EXPRESSION - STEP 2: Does the patient need extra time, require an assistive device (such as augmentive communication syste m or a communication board), OR does s/he have mild difficulty expressing complex and abstract ideas (including mild dysarthria or mild word-find problems)? Yes. EXPRESSION - SCORE: 6-CASPER SOCIAL INTERACTION: SOCIAL INTERACTION - STEP 1: Does the patient require a helper to interact with others in social and therapeutic situations? No. SOCIAL INTERACTION - STEP 2: Does the patient need extra time in social situations, OR does s/he interact with staff, other patien ts, and family members ONLY in structured environments, OR does s/he require medication for social in teraction? Yes, patient needs extra time SOCIAL INTERACTION - SCORE: 6-CASPER PROBLEM SOLVING: PROBLEM SOLVING - STEP 1: Does the patient need help from a person or device, or need extra time to solve complex problems such as managing a checking account or confronting interpersonal problems? No. PROBLEM SOLVING - STEP 2: Does the patient require extra time to make decisions or solve problems, OR does s/he have slight dif ficulty reading, initiating, or self-correcting in unfamiliar situations? Yes, patient needs extra ti me. PROBLEM SOLVING - SCORE: 6-CASPER MEMORY: MEMORY - STEP 1: Does the patient need help from a person or device, or need extra time to remember frequently encount ered people, daily routines, and executing requests? No. MEMORY - STEP 2: Does the patient have slight difficulty recognizing frequently encountered people, daily routines, or executing requests without the need for repetition or using self-initiated or environmental cues to remember? Yes. MEMORY - SCORE: 6-CASPER SIGNATURE PANEL: The following modified sections: Eating - Score, Grooming - Score, Bathing - Score, Dressing - Upper Body - Score, Dressing - Lower Body - Score, Toileting - Score, Bladder Management - Score, Bowel Man agement - Score, Transfers: Bed, Chair, Wheelchair - Score, Transfers: Toilet - Score, Transfers: Monica wer - Score, Transfers: Tub - Score, Locomotion: Walk - Score, Locomotion: Wheelchair - Score, Compre hension - Score, Expression - Score, Social Interaction - Score, Problem Solving - Score, Memory - Sc ore were [electronically] signed by Bren Hook C.N.A. on Sat Oct 13 2018 10:22:40 T-0500 (Centra l Daylight Time)
== END 2018-10-13 09:45 | disposition home health service (06) | DRG 57 ==
LOC: 5TH 18:59
PROVIDERS: ADMIT Psychiatry & Neurology Neurology with Special Qualifications in Child Neurology; ATTEND Psychiatry & Neurology Neurology with Special Qualifications in Child Neurology
DX: I69.354 Hemiplegia and hemiparesis following cerebral infarction affecting left non-dominant side (principal); G95.20 Unspecified cord compression; I25.10 Atherosclerotic heart disease of native coronary artery without angina pectoris; E11.40 Type 2 diabetes mellitus with diabetic neuropathy, unspecified; N40.0 Benign prostatic hyperplasia without lower urinary tract symptoms; E78.5 Hyperlipidemia, unspecified; I10 Essential (primary) hypertension; E03.9 Hypothyroidism, unspecified
CPT/HCPCS: 36415; 74230; 80048; 81001; 82040; 82550; 82553; 82962; 83735; 84134; 84484; 85025; 87086; 87088; 92526; 92610; 92611; 93005; 97110; 97112; 97116; 97150; 97163; 97167; 97530; 97542; J1650

== ENCOUNTER 2018-10-17 15:06 | Emergency (ER) | payer OTHER ==
--- OUTSIDE RECORDS SUMMARY | 2018-10-17 15:09 | XMS REPORT ---
:1960 [facility] Address [address] [place] [address] Care Team Providers Name Role Phone TERA [...] Results Atomic Results Result Comments CTA BRAIN [facility] [address] [place], [place] [address] Patient Name: FAITH VANCE MR #: [id number] : 1960 Age/Sex: 57/M Req #: [id number] Adm Physician: TERA COX MD Ordered by: TERA COX MD Report #: [id number] Location: [facility] Room/Bed: [place] [address] Procedure: [id number] CT/CTA BRAIN Exam Date: 10/24/17 Exam Time: [...] PM Dictated By: ANA MARIA ARTEAGA MD [id number] Transcribed By: ANDREE on 10/24/17 1635 COPY TO: TERA COX MD CT BRAIN WO [place] [address] Patient Name: FAITH VANEC MR #: [id number] : 1960 Age/Sex: 57/M Req #: [id number] Adm Physician: Ordered by: ARLETH WAHL MD Report #: [id number] Location: Room/Bed: Procedure: [id number] CT/CT BRAIN WO Exam Date: 10/23/17 Exam [...] PM Dictated By: ANA MARIA ARTEAGA MD [id number] Transcribed By: ANDREE on 10/23/174 COPY TO: ARLETH WAHL MD CTA CHEST [place] [address] Patient Name: FAITH VANCE MR #: [id number] : 1960 Age/Sex: 57/M Req #: [id number] Adm Physician: Ordered by: ARLETH WAHL MD Report #: [id number] Location: ER Room/Bed: Procedure: [id number] CT/CTA CHEST Exam Date: 10/23/17 Exam Time: [...] reviewed and is below limits set by [facility]). FINDINGS: Lines and Tubes: Pacemaker with [...] By: OREN IRIZARRY MD 1621 Transcribed By: NADREE on 10/23/17 1621 COPY TO: ARLETH WAHL MD CHEST SINGLE [address] (PORTABLE) [place] [address] Patient Name: FAITH VANCE MR #: [id number] : 1960 Age/Sex: 57/M Req #: [id number] Adm Physician: Ordered by: ARLETH WAHL MD Report #: [id number] Location: ER Room/Bed: Procedure: [id number] DX/CHEST SINGLE (PORTABLE) Exam Date: 10/23/17 Exam [...] TO: ARLETH WAHL MD CT BRAIN WO [place] [id number] [place] [address] Patient Name: FAITH VANCE MR #: [id number] : 1960 Age/Sex: 56/M Req #: [id number] Adm Physician: Ordered by: JACQUELYN MONTES DE OCA MD Report #: [id number] Location: ER Room/Bed: Procedure: [id number] CT/CT BRAIN WO Exam Date: Exam Time: [...] MONTES DE OCA MD CT CERVICAL SPINE [place] [address] Patient Name: FAITH VANCE MR #: [id number] : 1960 Age/Sex: 56/M Req #: [id number] Adm Physician: Ordered by: JACQUELYN MONTES DE OCA MD Report #: [id number] Location: ER Room/Bed: Procedure: [id number] CT/CT CERVICAL SPINE WO Exam Date: Exam [...] JACQUELYN MONTES DE OCA MD CHEST SINGLE [address] (PORTABLE) [place] [address] Patient Name: FAITH VANCE MR #: [id number] : 1960 Age/Sex: 56/M Req #: [id number] Adm Physician: Ordered by: JACQUELYN MONTES DE OCA MD Report #: [id number] Location: ER Room/Bed: Procedure: [id number] DX/CHEST SINGLE (PORTABLE) Exam Date: 04/04/17 Exam [...] DE OCA MD HIP RIGHT 2-[address] (+/- PELVIS) [place] [address] Patient Name: FAITH VANCE MR #: [id number] : 1960 Age/Sex: 56/M Req #: [id number] Adm Physician: Ordered by: JACQUELYN MONTES DE OCA MD Report #: [id number] Location: ER Room/Bed: Procedure: [id number] DX/HIP RIGHT 2-3 VW (+/- PELVIS) Exam [...] TO: JACQUELYN MONTES DE OCA MD LUMBAR, [address] COMPLETE MIN 4VW [place] [address] Patient Name: FAITH VANCE MR #: [id number] : 1960 Age/Sex: 56/M Req #: [id number] Adm Physician: Ordered by: JACQUELYN MONTES DE OCA MD Report #: [id number] Location: ER Room/Bed: Procedure: [id number] DX/SP LUMBAR, COMPLETE MIN 4VW Exam Date: [...] DE OCA MD US ABDOMEN [place] [address] Patient Name: FAITH VANCE MR #: [id number] : 1960 Age/Sex: 56/M Req #: [id number] [facility] Physician: NICHELLE PALACIOS MD Ordered by: SCOTT AMIN MD Report #: [id number] Location: [facility] Room/Bed: [place] [address] Procedure: [id number] US/US ABDOMEN COMPLETE Exam Date: 03/08/17 Exam [...] 03/08/17 1040 COPY TO: SCOTT AMIN MD [place] [address] Patient Name: FAITH VANCE MR #: [id number] : 1960 Age/Sex: 56/M Req #: [id number] Adm Physician: Ordered by: JACQUELYN MONTES DE OCA MD Report #: [id number] Location: ER Room/Bed: Procedure: [id number] DX/CHEST SINGLE (PORTABLE) Exam Date: 03/05/17 Exam [...]
[2018-10-17 16:17] LABS: Absolute Lymphocytes (CBC) 1.9 K/uL (0.7-4.9); Absolute Monocytes 0.5 K/uL (0.1-1.3); Absolute Neutrophil 3.3 K/uL (1.8-8.0); Basophils % 0.7 % (0-1.3); Hematocrit 36.2 % (39.6-49.0); Lymphocytes % 32.2 % (15.3-44.8); MPV 8.5 fL (7.6-11.3); Monocytes % 8.1 % (3.3-12.3)
[2018-10-17 16:20] LABS: ALT/SGPT 38 U/L (12-78); AST/SGOT 24 U/L (15-37); Albumin 3.5 g/dL (3.4-5.0); Alkaline Phosphatase 173 U/L (45-117); BUN Blood Urea Nitrogen 9 mg/dL (7-18); Bicarbonate 21 mmol/L (21-32); Bilirubin Direct 0.2 mg/dL (0-0.2); Bilirubin Total 0.7 mg/dL (0.2-1.0); Glucose Level 271 mg/dL (74-106); Lipase 139 U/L (73-393); Potassium 3.7 mmol/L (3.5-5.1); Protein, Total 7.5 g/dL (6.4-8.2); Sodium Level 141 mmol/L (136-145)
[2018-10-17] MEDS ORDERED: ONDANSETRON 4 MG/2 ML VIAL ONE (16:36)
[2018-10-17] MEDS ORDERED: FENTANYL CITR 100 MCG/2 ML ONE (16:36)
[2018-10-17 16:45] LABS: Urine Blood NEGATIVE (NEG); Urine Glucose 3+ (NEG); Urine Protein 3+ (NEG); Urine Specific Gravity 1.015 (1.005-1.030); Urine pH >8.5 (5.0-7.0)
--- NOTE | 2018-10-17 17:36 | EDPHYS ---
Physician Documentation [facility] Name: Ernie Rooney Age: 58 yrs Sex: Male : 1960 Arrival Date: 10/17/2018 Time: 15:13 Bed 14 Private MD: ANIA Physician Mustapha Cole HPI: 10/17 17:06 This 58 yrs old Male presents to ER via Ambulatory with complaints of jr8 Abdominal Pain. 17:06 The patient presents with abdominal pain right lateral abdomen. Onset: The jr8 symptoms/episode began/occurred gradually, 2 month(s) ago, and became worse and became persistent. The symptoms do not radiate. Associated signs and symptoms: none. The symptoms are described as stabbing. Modifying factors: The symptoms are alleviated by nothing, the symptoms are aggravated by movement, pressure. Severity of pain: At its worst the pain was moderate in the emergency department the pain is unchanged. The patient has experienced a previous episode. The patient has not recently seen a physician. Stated that he had similar pain about one month ago. Stated that the bulge on his right side feels worse. Stated that they could not find anything wrong the last time. Historical: - Allergies: 15:15 NKA; aa5 - Home Meds: 15:54 clopidogrel 75 mg Oral tab 1 tab once daily [Active]; doxazosin 8 mg Oral tab 1 tab mg2 once daily [Active]; fenofibrate 200 mg Oral once daily [Active]; gabapentin 800 mg Oral tab 1 tab twice a day [Active]; glipizide 10 mg Oral tab 2 tabs 2 times per day [Active]; levothyroxine 50 mcg tab [Active]; lisinopril 2.5 mg Oral tab [Active]; metformin 1,000 mg Oral tab 1 tab 2 times per day [Active]; metoprolol tartrate 25 mg Oral tab [Active]; omeprazole 20 mg Oral cpDR 1 cap once daily [Active]; 15:56 Protonix 40 mg Oral TbEC 1 tab once daily [Active]; simvastatin 80 mg Oral tab daily mg2 [Active]; tamsulosin 0.4 mg Oral cp24 1 cap once daily [Active]; tizanidine 4 mg Oral cap 1 cap 3 times per day [Active]; tramadol 50 mg Oral tab 1 tab three times a day [Active]; venlafaxine 75 mg Oral tab 1 tab 2 times per day [Active]; - PMHx: 15:15 Back pain; Depression; Diabetes - NIDDM; GERD; High Cholesterol; Hyperlipidemia; aa5 Hypertension; Hypothyroidism; Myocardial infarction; - PSHx: 15:15 CABG; Pacemaker; Cholecystectomy; multiple back surgeries; left arm surgery; aa5 - Immunization history:: Flu vaccine is up to date. - Social history:: Smoking status: Patient/guardian denies using tobacco. - Ebola Screening: : No symptoms or risks identified at this time. ROS: 17:06 Eyes: Negative for injury, pain, redness, and discharge, ENT: Negative for injury, jr8 pain, and discharge, Neck: Negative for injury, pain, and swelling, Cardiovascular: Negative for chest pain, palpitations, and edema, Respiratory: Negative for shortness of breath, cough, wheezing, and pleuritic chest pain, Back: Negative for injury and pain, MS/Extremity: Negative for injury and deformity, Skin: Negative for injury, rash, and discoloration, Neuro: Negative for headache, weakness, numbness, tingling, and seizure. 17:06 Abdomen/GI: Positive for abdominal pain, Negative for nausea, vomiting, and diarrhea, abdominal distension, anorexia, dysphagia, hematemesis, black/tarry stool, rectal pain, rectal bleeding, bowel incontinence, flatulence. Exam: 17:06 Eyes: Pupils equal round and reactive to light, extra-ocular motions intact. Lids and jr8 lashes normal. Conjunctiva and sclera are non-icteric and not injected. Cornea within normal limits. Periorbital areas with no swelling, redness, or edema. ENT: Nares patent. No nasal discharge, no septal abnormalities noted. Tympanic membranes are normal and external auditory canals are clear. Oropharynx with no redness, swelling, or masses, exudates, or evidence of obstruction, uvula midline. Mucous membranes moist. Neck: Trachea midline, no thyromegaly or masses palpated, and no cervical lymphadenopathy. Supple, full range of motion without nuchal rigidity, or vertebral point tenderness. No Meningismus. Cardiovascular: Regular rate and rhythm with a normal S1 and S2. No gallops, murmurs, or rubs. Normal PMI, no JVD. No pulse deficits. Respiratory: Lungs have equal breath sounds bilaterally, clear to auscultation and percussion. No rales, rhonchi or wheezes noted. No increased work of breathing, no retractions or nasal flaring. Back: No spinal tenderness. No costovertebral tenderness. Full range of motion. Skin: Warm, dry with normal turgor. Normal color with no rashes, no lesions, and no evidence of cellulitis. MS/ Extremity: Pulses equal, no cyanosis. Neurovascular intact. Full, normal range of motion. Neuro: Awake and alert, GCS 15, oriented to person, place, time, and situation. Cranial nerves II-XII grossly intact. Motor strength 5/5 in all extremities. Sensory grossly intact. Cerebellar exam normal. Normal gait. 17:06 Abdomen/GI: Inspection: Mild bulge noted to right lateral aspect of abdomen. Tender to palpation. No evidence of trauma , Bowel sounds: active, all quadrants, Palpation: soft, in all quadrants, moderate abdominal tenderness, in the anterior aspect of right lateral abdomen, Indicators: McBurney's point is not tender, Hoang's sign is negative, Rovsing's sign is negative, Liver: tenderness, is not appreciated. Vital Signs: 15:15 BP 109 / 69; Pulse 90; Resp 18 S; Temp 98.2(O); Pulse Ox 100% on R/A; Weight 81.65 kg aa5 (R); Height 5 ft. 7 in. (170.18 cm) (R); Pain 9/10; 16:30 BP 150 / 81; Pulse 82; Resp 18; Temp 98; Pulse Ox 100% on R/A; mg2 17:29 BP 150 / 94; Pulse 83; Resp 8; Temp 98.2; Pulse Ox 100% on R/A; Pain 8/10; mg2 15:15 Body Mass Index 28.19 (81.65 kg, 170.18 cm) aa5 MDM: 15:20 Patient medically screened. jr8 17:34 Data reviewed: vital signs, nurses notes, lab test result(s), radiologic studies, CT jr8 scan. Data interpreted: Pulse oximetry: on room air is 100 %. Interpretation: normal. Counseling: I had a detailed discussion with the patient and/or guardian regarding: the historical points, exam findings, and any diagnostic results supporting the discharge/admit diagnosis, lab results, radiology results, the need for outpatient follow up, a general surgeon, to return to the emergency department if symptoms worsen or persist or if there are any questions or concerns that arise at home. ED course: No acute findings on CT. Labs unremarkable. Recommended to patient to see general surgery for further evaluation of this region. Will send home on pain meds in mean time. 10/17 15:22 Order name: Basic Metabolic Panel; Complete Time: 16:22 [facility] 10/17 15:22 Order name: CBC with Diff; Complete Time: 16:19 [facility] 10/17 15:22 Order name: Creatinine for Radiology; Complete Time: 16: [facility] 10/17 15:22 Order name: Hepatic Function; Complete Time: 16:22 [facility] 10/17 15:22 Order name: Lipase; Complete Time: 16: [facility] 10/17 16:33 Order name: Urine Dipstick--Ancillary (enter results); Complete Time: 17:12 10/17 15:22 Order name: IV Saline Lock; Complete Time: 15:38 [facility] 10/17 15:22 Order name: Labs collected and sent; Complete Time: 15:38 [facility] 10/17 16:19 Order name: CT Abd/Pelvis - W/Contrast [facility] 10/17 16:30 Order name: Urine Dipstick-Ancillary (obtain specimen); Complete Time: 16:30 mg2 Administered Medications: 16:29 Drug: fentaNYL (PF) 75 mcg Route: IVP; Site: right forearm; mg2 17:19 Follow up: Response: No adverse reaction; Marked relief of symptoms mg2 16:29 Drug: Zofran 4 mg Route: IVP; Site: right forearm; mg2 17:19 Follow up: Response: No adverse reaction; Marked relief of symptoms mg2 17:28 Drug: morphine 4 mg Route: IVP; Site: right forearm; mg2 17:49 Follow up: Response: No adverse reaction; Marked relief of symptoms mg2 Disposition: 10/18 07:05 Co-signature as Attending Physician, Mustapha Cole MD I agree with the assessment and caitlyn plan of care. Disposition: 10/17/18 17:35 Discharged to Home. Impression: Abdominal and pelvic pain. - Condition is Stable. - Discharge Instructions: Abdominal Pain, Adult, Hernia, Adult. - Prescriptions for Ibuprofen 800 mg Oral Tablet - take 1 tablet by ORAL route every 12 hours As needed take with food; 20 tablet. Tylenol- Codeine #3 300-30 mg Oral Tablet - take 2 tablets by ORAL route every 6 hours As needed; 20 tablet. - Medication Reconciliation Form, Thank You Letter, Antibiotic Education, Prescription Opioid Use form. - Follow up: Zack Foster MD; When: 2 - 3 days; Reason: Recheck today's complaints, Continuance of care, Re-evaluation by your physician. - Problem is new. - Symptoms have improved. Signatures: Dispatcher [employer] EDOR Mustapha Cole MD MD cha Calderon, Audri, RN RN aa5 Cristi James PA PA jr8 Rico Young RN RN mg2 Corrections: (The following items were deleted from the chart) 10/17 17:52 17:35 10/17/2018 17:35 Discharged to Home. Impression: Abdominal and pelvic pain. mg2 Condition is Stable. Forms are Medication Reconciliation Form, Thank You Letter, Antibiotic Education, Prescription Opioid Use. Follow up: Zack Foster; When: 2 - 3 days; Reason: Recheck today's complaints, Continuance of care, Re-evaluation by your physician. Problem is new. Symptoms have improved. jr8
--- NOTE | 2018-10-17 17:36 | ER ---
Nurse's Notes [facility] Name: Enrie Rooney Age: 58 yrs Sex: Male : 1960 Arrival Date: 10/17/2018 Time: 15:13 Bed 14 Private MD: Diagnosis: Abdominal and pelvic pain Presentation: 10/17 15:12 Presenting complaint: Patient states: abdominal pain. Pt states "I've been here for the aa5 same thing before and I've had this swelling on the right side of my abdomen for about 3 months". Transition of care: patient was not received from another setting of care. Onset of symptoms was 2018. Risk Assessment: Do you want to hurt yourself or someone else? Patient reports no desire to harm self or others. Initial Sepsis Screen: Does the patient meet any 2 criteria? No. Patient's initial sepsis screen is negative. Does the patient have a suspected source of infection? No. Patient's initial sepsis screen is negative. Care prior to arrival: None. 15:12 Method Of Arrival: Ambulatory aa5 15:12 Acuity: TONE 3 aa5 Historical: - Allergies: 15:15 NKA; aa5 - Home Meds: 15:54 clopidogrel 75 mg Oral tab 1 tab once daily [Active]; doxazosin 8 mg Oral tab 1 tab mg2 once daily [Active]; fenofibrate 200 mg Oral once daily [Active]; gabapentin 800 mg Oral tab 1 tab twice a day [Active]; glipizide 10 mg Oral tab 2 tabs 2 times per day [Active]; levothyroxine 50 mcg tab [Active]; lisinopril 2.5 mg Oral tab [Active]; metformin 1,000 mg Oral tab 1 tab 2 times per day [Active]; metoprolol tartrate 25 mg Oral tab [Active]; omeprazole 20 mg Oral cpDR 1 cap once daily [Active]; 15:56 Protonix 40 mg Oral TbEC 1 tab once daily [Active]; simvastatin 80 mg Oral tab daily mg2 [Active]; tamsulosin 0.4 mg Oral cp24 1 cap once daily [Active]; tizanidine 4 mg Oral cap 1 cap 3 times per day [Active]; tramadol 50 mg Oral tab 1 tab three times a day [Active]; venlafaxine 75 mg Oral tab 1 tab 2 times per day [Active]; - PMHx: 15:15 Back pain; Depression; Diabetes - NIDDM; GERD; High Cholesterol; Hyperlipidemia; aa5 Hypertension; Hypothyroidism; Myocardial infarction; - PSHx: 15:15 CABG; Pacemaker; Cholecystectomy; multiple back surgeries; left arm surgery; aa5 - Immunization history:: Flu vaccine is up to date. - Social history:: Smoking status: Patient/guardian denies using tobacco. - Ebola Screening: : No symptoms or risks identified at this time. Screenin:39 Abuse screen: Denies threats or abuse. Denies injuries from another. Nutritional mg2 screening: No deficits noted. Tuberculosis screening: No symptoms or risk factors identified. Fall Risk IV access (20 points). Assessment: 15:38 General: Appears in no apparent distress. uncomfortable, Behavior is calm, cooperative. mg2 Pain: Complains of pain in abdomen Pain does not radiate. Pain currently is 6 out of 10 on a pain scale. Quality of pain is described as aching, Pain began gradually, 2-3 days ago. Is intermittent. Neuro: Level of Consciousness is awake, alert, obeys commands, Oriented to person, place, time, situation. Cardiovascular: Capillary refill < 3 seconds Patient's skin is warm and dry. Respiratory: Airway is patent Respiratory effort is even, unlabored, Respiratory pattern is regular, symmetrical. GI: Bowel sounds present X 4 quads. Abdomen is tender to palpation in right upper quadrant and right lower quadrant. : No signs and/or symptoms were reported regarding the genitourinary system. EENT: No signs and/or symptoms were reported regarding the EENT system. Derm: Skin is intact, is healthy with good turgor, Skin is pink, warm \\T\\ dry. normal. Musculoskeletal: Circulation, motion, and sensation intact. Capillary refill < 3 seconds. Vital Signs: 15:15 BP 109 / 69; Pulse 90; Resp 18 S; Temp 98.2(O); Pulse Ox 100% on R/A; Weight 81.65 kg aa5 (R); Height 5 ft. 7 in. (170.18 cm) (R); Pain 9/10; 16:30 BP 150 / 81; Pulse 82; Resp 18; Temp 98; Pulse Ox 100% on R/A; mg2 17:29 BP 150 / 94; Pulse 83; Resp 8; Temp 98.2; Pulse Ox 100% on R/A; Pain 8/10; mg2 15:15 Body Mass Index 28.19 (81.65 kg, 170.18 cm) aa5 ED Course: 15:12 Arm band placed on. aa5 15:13 Patient arrived in ED. mr 15:14 Triage completed. aa5 15:19 Rico Young, RN is Primary Nurse. mg2 15:20 [facility] jr8 15:20 Mustapha Cole MD is Attending Physician. jr8 15:40 Patient has correct armband on for positive identification. Pulse ox on. NIBP on. Door mg2 closed. 15:40 No provider procedures requiring assistance completed. Inserted saline lock: 20 gauge mg2 in right forearm, using aseptic technique. Blood collected. 16:59 CT Abd/Pelvis - W/Contrast In Process Unspecified. EDMS 17:35 Zack Foster MD is Referral Physician. jr8 17:49 IV discontinued, intact, bleeding controlled, No redness/swelling at site. Pressure mg2 dressing applied. Administered Medications: 16:29 Drug: fentaNYL (PF) 75 mcg Route: IVP; Site: right forearm; mg2 17:19 Follow up: Response: No adverse reaction; Marked relief of symptoms mg2 16:29 Drug: Zofran 4 mg Route: IVP; Site: right forearm; mg2 17:19 Follow up: Response: No adverse reaction; Marked relief of symptoms mg2 17:28 Drug: morphine 4 mg Route: IVP; Site: right forearm; mg2 17:49 Follow up: Response: No adverse reaction; Marked relief of symptoms mg2 Outcome: 17:35 Discharge ordered by . jr8 17:50 Discharged to home ambulatory. mg2 17:50 Condition: stable 17:50 Discharge instructions given to patient, Instructed on discharge instructions, follow up and referral plans. medication usage, Demonstrated understanding of instructions, follow-up care, medications, Prescriptions given X 2. 17:52 Patient left the ED. mg2 Signatures: Dispatcher [employer] EDAR Prince Sondra RicardoAdriana, RN RN aa5 Cristi James PA PA jr8 Rico Young RN RN mg2
[2018-10-17] MEDS ORDERED: MORPHINE 4 MG/ML SYR ONE (17:39)
[2018-10-17 18:14] VITALS: O2SAT 100
[2018-10-17 18:18] VITALS: BP 150/94; TEMP 98.2
--- NOTE | 2018-10-18 12:21 | RAD REPORT ---
EXAM DESCRIPTION: CT - Abdomen Pelvis W Contrast - 10/18/2018 11:35 am CLINICAL HISTORY: Abdominal pain/right-sided pain COMPARISON: August 2018 TECHNIQUE: Computed axial tomography of the abdomen pelvis was obtained. 100 cc Isovue-300 was admin istered intravenously. Oral contrast was not requested which limits evaluation of bowel. All CT scans are performed using dose optimization technique as appropriate and may include automated exposure control or mA/KV adjustment according to patient size. FINDINGS: Small pleural effusions The liver, spleen, pancreas, and adrenals appear unremarkable. Small renal cysts. Cholecystectomy There is no evidence of diverticulitis. Normal appendix. Postsurgical changes involving the lumbar sp ine. Small inguinal and umbilical hernias containing fat IMPRESSION: No acute abdominal abnormality is displayed. Small pleural effusions
== END 2018-10-17 17:52 | disposition home or self-care (01) ==
LOC: ER 15:06
DX: R10.2 Pelvic and perineal pain (principal); I10 Essential (primary) hypertension; E11.9 Type 2 diabetes mellitus without complications; E78.5 Hyperlipidemia, unspecified; E78.00 Pure hypercholesterolemia, unspecified; E03.9 Hypothyroidism, unspecified; F32.9 Major depressive disorder, single episode, unspecified; I25.2 Old myocardial infarction; Z95.0 Presence of cardiac pacemaker; Z95.1 Presence of aortocoronary bypass graft
CPT/HCPCS: 85025; 80048; 36415; 80076; 81003; 83690; 74177; 96375; 96374; 99284; Q9967; J3010; J2405

== ENCOUNTER 2018-10-24 20:17 | Emergency (ER) | payer OTHER ==
--- OUTSIDE RECORDS SUMMARY | 2018-10-24 20:19 | XMS REPORT ---
:1960 [facility] [address] [place] [address] Care Team Providers Name Role Phone TERA [...] Results Atomic Results Result Comments CTA BRAIN [facility] [address] [place], [place] [address] Patient Name: FAITH VANCE MR #: [id number] : 1960 Age/Sex: 57/M Req #: [id number] Adm Physician: TERA COX MD Ordered by: TERA COX MD Report #: [id number] Location: [facility] Room/Bed: [place] [address] Procedure: [id number] CT/CTA BRAIN Exam Date: 10/24/17 Exam Time: [...] PM Dictated By: ANA MARIA ARTEAGA MD [id number] Transcribed By: ANDREE on 10/24/17 1636 COPY TO: TERA COX MD CT BRAIN WO [place] [address] Patient Name: FAITH VANCE MR #: [id number] : 1960 Age/Sex: 57/M Req #: [id number] Adm Physician: Ordered by: ARLETH WAHL MD Report #: [id number] Location: Room/Bed: Procedure: [id number] CT/CT BRAIN WO Exam Date: 10/23/17 Exam [...] PM Dictated By: ANA MARIA ARTEAGA MD [id number] Transcribed By: ANDREE on 10/23/178 COPY TO: ARLETH WAHL MD CTA CHEST [place] [address] Patient Name: FAITH VANCE MR #: [id number] : 1960 Age/Sex: 57/M Req #: [id number] Adm Physician: Ordered by: ARLETH WAHL MD Report #: [id number] Location: ER Room/Bed: Procedure: [id number] CT/CTA CHEST Exam Date: 10/23/17 Exam Time: [...] reviewed and is below limits set by [facility]). FINDINGS: Lines and Tubes: Pacemaker with leads [...] 3. Hepatic steatosis. Signed by: Dr. Oren rIizarry MD on 10/23/2017 4:21 PM Dictated By: OREN IRIZARRY MD 1621 Transcribed By: ANDREE on 10/23/17 1621 COPY TO: ARLETH WAHL MD CHEST SINGLE [address] (PORTABLE) [place] [address] Patient Name: FAITH VANCE MR #: [id number] : 1960 Age/Sex: 57/M Req #: [id number] Adm Physician: Ordered by: ARLETH WAHL MD Report #: [id number] Location: ER Room/Bed: Procedure: [id number] DX/CHEST SINGLE (PORTABLE) Exam Date: 10/23/17 Exam [...] TO: ARLETH WAHL MD CT BRAIN WO [place] [address] [place] [address] Patient Name: FAITH VANCE MR #: [id number] : 1960 Age/Sex: 56/M Req #: [id number] Adm Physician: Ordered by: JACQUELYN MONTES DE OCA MD Report #: [id number] Location: ER Room/Bed: Procedure: [id number] CT/CT BRAIN WO Exam Date: Exam Time: [...] MONTES DE OCA MD CT CERVICAL SPINE [place] [address] Patient Name: FAITH VANCE MR #: [id number] : 1960 Age/Sex: 56/M Req #: [id number] Adm Physician: Ordered by: JACQUELYN MONTES DE OCA MD Report #: [id number] Location: ER Room/Bed: Procedure: [id number] CT/CT CERVICAL SPINE WO Exam Date: Exam [...] JACQUELYN MONTES DE OCA MD CHEST SINGLE [address] (PORTABLE) [place] [address] Patient Name: FAITH VANCE MR #: [id number] : 1960 Age/Sex: 56/M Req #: [id number] Adm Physician: Ordered by: JACQUELYN MONTES DE OCA MD Report #: [id number] Location: ER Room/Bed: Procedure: [id number] DX/CHEST SINGLE (PORTABLE) Exam Date: 04/04/17 Exam [...] DE OCA MD HIP RIGHT 2-[address] (+/- PELVIS) [place] [address] Patient Name: FAITH VANCE MR #: [id number] : 1960 Age/Sex: 56/M Req #: [id number] Adm Physician: Ordered by: JACQUELYN MONTES DE OCA MD Report #: [id number] Location: ER Room/Bed: Procedure: [id number] DX/HIP RIGHT 2-3 VW (+/- PELVIS) Exam [...] TO: JACQUELYN MONTES DE OCA MD LUMBAR, [address] COMPLETE MIN 4VW [place] [address] Patient Name: FAITH VANCE MR #: [id number] : 1960 Age/Sex: 56/M Req #: [id number] Adm Physician: Ordered by: JACQUELYN MONTES DE OCA MD Report #: [id number] Location: ER Room/Bed: Procedure: [id number] DX/SP LUMBAR, COMPLETE MIN 4VW Exam Date: [...] JACQUELYN MONTES DE OCA MD US ABDOMEN [place] [address] Patient Name: FAITH VANCE MR #: [id number] : 1960 Age/Sex: 56/M Req #: [id number] [facility] Physician: NICHELLE PALACIOS MD Ordered by: SCOTT AMIN MD Report #: [id number] Location: [facility] Room/Bed: [place] [address] Procedure: [id number] US/US ABDOMEN COMPLETE Exam Date: 03/08/17 Exam [...] 03/08/17 1040 COPY TO: SCOTT AMIN MD [place] [address] Patient Name: FAITH VANCE MR #: [id number] : 1960 Age/Sex: 56/M Req #: [id number] Adm Physician: Ordered by: JACQUELYN MONTES DE OCA MD Report #: [id number] Location: ER Room/Bed: Procedure: [id number] DX/CHEST SINGLE (PORTABLE) Exam Date: 03/05/17 Exam [...]
[2018-10-24 21:27] LABS: Absolute Lymphocytes (CBC) 1.5 K/uL (0.7-4.9); Absolute Monocytes 0.8 K/uL (0.1-1.3); Absolute Neutrophil 2.5 K/uL (1.8-8.0); Basophils % 0.7 % (0-1.3); Eosinophils % 3.5 % (0-4.4); Hematocrit 39.7 % (39.6-49.0); Lymphocytes % 30.9 % (15.3-44.8); MPV 9.1 fL (7.6-11.3); Monocytes % 15.2 % (3.3-12.3); RBC Red Blood Cell Count 4.39 M/uL (4.33-5.43)
[2018-10-24 21:48] LABS: ALT/SGPT 27 U/L (12-78); AST/SGOT 16 U/L (15-37); Albumin 3.8 g/dL (3.4-5.0); Alkaline Phosphatase 166 U/L (45-117); BUN Blood Urea Nitrogen 17 mg/dL (7-18); Bicarbonate 22 mmol/L (21-32); Bilirubin Direct < 0.1 mg/dL (0-0.2); Bilirubin Total 0.4 mg/dL (0.2-1.0); Lipase 269 U/L (73-393); Protein, Total 7.9 g/dL (6.4-8.2); Sodium Level 137 mmol/L (136-145)
[2018-10-24 21:51] LABS: Glucose Level 443 mg/dL (74-106)
[2018-10-24] MEDS ORDERED: ONDANSETRON 4 MG/2 ML VIAL ONE (21:52)
[2018-10-24] MEDS ORDERED: MORPHINE 4 MG/ML SYR ONE (21:52)
[2018-10-24] MEDS ORDERED: INSULIN -REGULAR HUMAN 50 UNIT/0.5 ML ML ONE (22:09)
--- NOTE | 2018-10-24 22:15 | EDPHYS ---
Physician Documentation [facility] Name: Ernie Rooney Age: 58 yrs Sex: Male : 1960 Arrival Date: 10/24/2018 Time: 20:21 Bed 28 Private MD: ED Physician Markel Patten HPI: 10/25 01:13 This 58 yrs old Male presents to ER via Ambulatory with complaints of Hernia. tw4 01:13 The patient presents with abdominal pain in the lower abdomen. Onset: The tw4 symptoms/episode began/occurred today. The symptoms do not radiate. Associated signs and symptoms: none. The symptoms are described as sharp. Modifying factors: The symptoms are alleviated by nothing, the symptoms are aggravated by nothing. Severity of pain: At its worst the pain was moderate in the emergency department the pain is unchanged. The patient has not experienced similar symptoms in the past. Historical: - Allergies: 10/24 20:38 NKA; ed1 - Home Meds: 20:38 venlafaxine 75 mg Oral tab 1 tab 2 times per day [Active]; famotidine 20 mg Oral tab 1 ed1 tab every 12 hours [Active]; amlodipine 5 mg tab 1 tab once daily [Active]; tamsulosin 0.4 mg Oral cp24 1 cap once daily [Active]; [place] 5-325 mg Oral tab 1 tab every 4 hours [Active]; dicyclomine 20 mg Oral tab 1 tab 4 times per day [Active]; lisinopril 2.5 mg Oral tab 1 tab once daily [Active]; gabapentin 300 mg oral cap 1 cap 3 times per day [Active]; metoprolol tartrate 25 mg Oral tab [Active]; - PMHx: 20:38 Back pain; Depression; Diabetes - NIDDM; GERD; High Cholesterol; Hyperlipidemia; ed1 Hypertension; Hypothyroidism; Myocardial infarction; - PSHx: 20:38 CABG; Cholecystectomy; multiple back surgeries; Pacemaker; left arm surgery; ed1 - Immunization history:: Adult Immunizations up to date. - Social history:: Smoking status: Patient/guardian denies using tobacco. - Ebola Screening: : Patient negative for fever greater than or equal to 101.5 degrees Fahrenheit, and additional compatible Ebola Virus Disease symptoms Patient denies exposure to infectious person Patient denies travel to an Ebola-affected area in the 21 days before illness onset No symptoms or risks identified at this time. ROS: 10/25 01:13 Constitutional: Negative for fever, chills, and weight loss, Eyes: Negative for injury, tw4 pain, redness, and discharge, Cardiovascular: Negative for chest pain, palpitations, and edema, Respiratory: Negative for shortness of breath, cough, wheezing, and pleuritic chest pain, Back: Negative for injury and pain, MS/Extremity: Negative for injury and deformity, Skin: Negative for injury, rash, and discoloration, Neuro: Negative for headache, weakness, numbness, tingling, and seizure. Abdomen/GI: Positive for abdominal pain, Negative for nausea and vomiting, nausea, vomiting, and diarrhea, abdominal cramps, abdominal distension, anorexia, dysphagia, hematemesis, black/tarry stool, rectal pain, rectal bleeding. Exam: 01:13 Constitutional: This is a well developed, well nourished patient who is awake, alert, tw4 and in no acute distress. Head/Face: Normocephalic, atraumatic. Chest/axilla: Normal chest wall appearance and motion. Nontender with no deformity. No lesions are appreciated. Cardiovascular: Regular rate and rhythm with a normal S1 and S2. No gallops, murmurs, or rubs. Normal PMI, no JVD. No pulse deficits. Respiratory: Lungs have equal breath sounds bilaterally, clear to auscultation and percussion. No rales, rhonchi or wheezes noted. No increased work of breathing, no retractions or nasal flaring. Back: No spinal tenderness. No costovertebral tenderness. Full range of motion. MS/ Extremity: Pulses equal, no cyanosis. Neurovascular intact. Full, normal range of motion. Neuro: Awake and alert, GCS 15, oriented to person, place, time, and situation. Cranial nerves II-XII grossly intact. Motor strength 5/5 in all extremities. Sensory grossly intact. Cerebellar exam normal. Normal gait. 01:13 Abdomen/GI: Inspection: abdomen appears normal, Bowel sounds: normal, Palpation: moderate abdominal tenderness, in the right upper quadrant and right lower quadrant. Vital Signs: 10/24 20:38 BP 112 / 72; Pulse 84; Resp 20; Temp 98.1(O); Pulse Ox 99% on R/A; Weight 81.65 kg; ed1 Height 5 ft. 7 in. (170.18 cm); Pain 10/10; 22:46 BP 146 / 92; Pulse 80; Resp 18; Temp 98; Pulse Ox 100% on R/A; Pain 0/10; mg2 20:38 Body Mass Index 28.19 (81.65 kg, 170.18 cm) ed1 MDM: 21:04 Patient medically screened. tw4 10/25 01:13 Differential diagnosis: bowel obstruction, cholecystitis, Cholelithiasis, tw4 diverticulitis, Ureterolithiasis, urinary tract infection. Counseling: I had a detailed discussion with the patient and/or guardian regarding: the historical points, exam findings, and any diagnostic results supporting the discharge/admit diagnosis, lab results. Medication response: morphine markedly relieved the patient's pain. Symptoms have improved. Response to treatment: and as a result, I will discharge patient. Special discussion: Based on the patient's Hx, exam, and Dx evaluation, there is no indication for emergent surgery or inpatient Tx. It is understood by the patient/guardian that if the Sx's persist or worsen they need to return immediately for re-evaluation. I discussed with the patient/guardian in detail that at this point there is no indication for admission to the hospital. It is understood, however, that if the symptoms persist or worsen the patient needs to return immediately for re-evaluation. ED course: Pt has had multiple CT scan over the last 3 months for the same complaint of abdominal pain. Pt states that pain has no changed in character or location. Pt has been given followup information but has not followed up with a PCP or surgeon. . 01:55 Data reviewed: vital signs, nurses notes. Data interpreted: Pulse oximetry: tw4 Interpretation: normal. 10/24 21:05 Order name: Basic Metabolic Panel tw4 10/24 21:05 Order name: CBC with Diff tw4 10/24 21:05 Order name: Creatinine for Radiology tw4 10/24 21:05 Order name: Hepatic Function tw4 10/24 21:05 Order name: Lipase tw10/24 21:30 Order name: Manual Differential EDMS 10/24 21:05 Order name: IV Saline Lock; Complete Time: 21:18 tw4 10/24 21:05 Order name: Labs collected and sent; Complete Time: 21:18 tw Administered Medications: 10/24 21:47 Drug: morphine 4 mg Route: IVP; Site: right forearm; mg2 22:22 Follow up: Response: No adverse reaction; Marked relief of symptoms mg2 21:47 Drug: Zofran 4 mg Route: IVP; Site: right forearm; mg2 22:22 Follow up: Response: No adverse reaction; Marked relief of symptoms mg2 22:05 Drug: Insulin Regular Human 10 units {Co-Signature: ls4 (Chelsy Krause RN).} Route: IVP; mg2 Site: right forearm; Point of Care Testing: Blood Glucose: 22:46 Blood Glucose: 266 mg/dL; mg2 Ranges: Critical Glucose Levels:Adult <50 mg/dl or >400 mg/dl <40 mg/dl or >180 mg/dl Disposition: 10/24/18 22:15 Discharged to Home. Impression: Abdominal tenderness. - Condition is Stable. - Discharge Instructions: Abdominal Pain, Adult, Chronic Pain, Hyperglycemia, Abdominal Pain, Adult, Omss-me-Cses. - Prescriptions for Bentyl 20 mg Oral Tablet - take 1 tablet by ORAL route every 6 hours As needed; 20 tablet. - Medication Reconciliation Form, Thank You Letter, Antibiotic Education, Prescription Opioid Use form. - Follow up: Private Physician; When: Upon discharge from the Emergency Department; Reason: If symptoms return, Recheck today's complaints, Continuance of care. Follow up: Zack Foster MD; When: Tomorrow; Reason: If symptoms return, Recheck today's complaints, Continuance of care. Follow up: Jaspreet Liu MD; When: Upon discharge from the Emergency Department; Reason: If symptoms return, Recheck today's complaints, Continuance of care. Follow up: Ernie Toscano MD; When: Upon discharge from the Emergency Department; Reason: If symptoms return, Recheck today's complaints, Continuance of care. - Problem is new. - Symptoms have improved. Signatures: Dispatcher [employer] EDMS Ladi Fernandez RN RN ed1 Markel Patten MD MD tw4 Rico Young RN RN mg2 Chelsy Krause RN ls4 Corrections: (The following items were deleted from the chart) 21:51 21:05 Abdomen Pelvis W Con+CT.RAD.BRZ ordered. EDMS EDMS 22:16 22:15 10/24/2018 22:15 Discharged to Home. Impression: Abdominal tenderness. Condition tw4 is Stable. Forms are Medication Reconciliation Form, Thank You Letter, Antibiotic Education, Prescription Opioid Use. Follow up: Private Physician; When: Upon discharge from the Emergency Department; Reason: If symptoms return, Recheck today's complaints, Continuance of care. Problem is new. Symptoms have improved. tw4 22:49 22:16 10/24/2018 22:15 Discharged to Home. Impression: Abdominal tenderness. Condition mg2 is Stable. Discharge Instructions: Abdominal Pain, Adult, Chronic Pain, Abdominal Pain, Adult, [id number]. Prescriptions for Bentyl 20 mg Oral Tablet - take 1 tablet by ORAL route every 6 hours As needed; 20 tablet. and Forms are Medication Reconciliation Form, Thank You Letter, Antibiotic Education, Prescription Opioid Use. Follow up: Private Physician; When: Upon discharge from the Emergency Department; Reason: If symptoms return, Recheck today's complaints, Continuance of care. Follow up: Zack Foster; When: Tomorrow; Reason: If symptoms return, Recheck today's complaints, Continuance of care. Follow up: Dr. Jaspreet Liu; When: Upon discharge from the Emergency Department; Reason: If symptoms return, Recheck today's complaints, Continuance of care. Follow up: Ernie Toscano; When: Upon discharge from the Emergency Department; Reason: If symptoms return, Recheck today's complaints, Continuance of care. Problem is new. Symptoms have improved. tw4
--- NOTE | 2018-10-24 22:15 | ER ---
Nurse's Notes [facility] Name: Ernie Rooney Age: 58 yrs Sex: Male : 1960 Arrival Date: 10/24/2018 Time: 20:21 Bed 28 Private MD: Diagnosis: Abdominal tenderness Presentation: 10/24 20:32 Presenting complaint: Patient states: Same thing as last time. Hernia is getting bigger ed1 and I can't feel my left leg. Transition of care: patient was not received from another setting of care. Onset of symptoms was October 24, 2018. Risk Assessment: Do you want to hurt yourself or someone else? Patient reports no desire to harm self or others. Initial Sepsis Screen: Does the patient meet any 2 criteria? No. Patient's initial sepsis screen is negative. Does the patient have a suspected source of infection? No. Patient's initial sepsis screen is negative. Care prior to arrival: None. 20:32 Method Of Arrival: Ambulatory ed1 20:32 Acuity: TONE 3 ed1 Triage Assessment: 20:38 General: Appears uncomfortable, Behavior is cooperative, restless. Pain: Complains of ed1 pain in abdomen Pain currently is 10 out of 10 on a pain scale. Historical: - Allergies: 20:38 NKA; ed1 - Home Meds: 20:38 venlafaxine 75 mg Oral tab 1 tab 2 times per day [Active]; famotidine 20 mg Oral tab 1 ed1 tab every 12 hours [Active]; amlodipine 5 mg tab 1 tab once daily [Active]; tamsulosin 0.4 mg Oral cp24 1 cap once daily [Active]; Gause 5-325 mg Oral tab 1 tab every 4 hours [Active]; dicyclomine 20 mg Oral tab 1 tab 4 times per day [Active]; lisinopril 2.5 mg Oral tab 1 tab once daily [Active]; gabapentin 300 mg oral cap 1 cap 3 times per day [Active]; metoprolol tartrate 25 mg Oral tab [Active]; - PMHx: 20:38 Back pain; Depression; Diabetes - NIDDM; GERD; High Cholesterol; Hyperlipidemia; ed1 Hypertension; Hypothyroidism; Myocardial infarction; - PSHx: 20:38 CABG; Cholecystectomy; multiple back surgeries; Pacemaker; left arm surgery; ed1 - Immunization history:: Adult Immunizations up to date. - Social history:: Smoking status: Patient/guardian denies using tobacco. - Ebola Screening: : Patient negative for fever greater than or equal to 101.5 degrees Fahrenheit, and additional compatible Ebola Virus Disease symptoms Patient denies exposure to infectious person Patient denies travel to an Ebola-affected area in the 21 days before illness onset No symptoms or risks identified at this time. Screenin:44 Abuse screen: Denies threats or abuse. Denies injuries from another. Nutritional mg2 screening: No deficits noted. Tuberculosis screening: No symptoms or risk factors identified. Fall Risk. Assessment: 21:08 General: Appears uncomfortable, Behavior is calm, cooperative. Pain: Complains of pain mg2 in abdomen Pain does not radiate. Pain at worst was 10 out of 10 on a pain scale. Quality of pain is described as aching, Pain began gradually. Neuro: Level of Consciousness is awake, alert, obeys commands, Oriented to person, place, time, situation. Cardiovascular: Capillary refill < 3 seconds Patient's skin is warm and dry. Respiratory: Airway is patent Respiratory effort is even, unlabored, Respiratory pattern is regular, symmetrical. GI: Reports lower abdominal pain, nausea. : No signs and/or symptoms were reported regarding the genitourinary system. EENT: No signs and/or symptoms were reported regarding the EENT system. Derm: Skin is intact, is healthy with good turgor, Skin is pink, warm \T\ dry. normal. Musculoskeletal: Circulation, motion, and sensation intact. Capillary refill < 3 seconds. 22:00 Reassessment: critical lab result of glucose- 443 mg/dl relayed to dr núñez. mg2 22:23 Reassessment: patient for discharge once blood sugar decreased. mg2 22:47 Reassessment: Patient appears in no apparent distress at this time. blood sugar mg2 decreased. Patient states feeling better. Patient states symptoms have improved. Vital Signs: 20:38 BP 112 / 72; Pulse 84; Resp 20; Temp 98.1(O); Pulse Ox 99% on R/A; Weight 81.65 kg; ed1 Height 5 ft. 7 in. (170.18 cm); Pain 10/10; 22:46 BP 146 / 92; Pulse 80; Resp 18; Temp 98; Pulse Ox 100% on R/A; Pain 0/10; mg2 20:38 Body Mass Index 28.19 (81.65 kg, 170.18 cm) ed1 ED Course: 20:21 Patient arrived in ED. mr 20:33 Triage completed. ed1 20:38 Arm band placed on left wrist. ed1 20:44 Rico Young, SHEBA is Primary Nurse. mg2 21:04 Markel Núñez MD is Attending Physician. tw4 21:07 No provider procedures requiring assistance completed. Inserted saline lock: 20 gauge mg2 in right forearm, using aseptic technique. Blood collected. 21:11 Patient has correct armband on for positive identification. mg2 22:15 Zack Foster MD is Referral Physician. tw4 22:15 Jaspreet Liu MD is Referral Physician. tw4 22:15 Ernie Toscano MD is Referral Physician. tw4 22:48 IV discontinued, intact, bleeding controlled, No redness/swelling at site. Pressure mg2 dressing applied. Administered Medications: 21:47 Drug: morphine 4 mg Route: IVP; Site: right forearm; mg2 22:22 Follow up: Response: No adverse reaction; Marked relief of symptoms mg2 21:47 Drug: Zofran 4 mg Route: IVP; Site: right forearm; mg2 22:22 Follow up: Response: No adverse reaction; Marked relief of symptoms mg2 22:05 Drug: Insulin Regular Human 10 units {Co-Signature: ls4 (Chelsy Krause RN).} Route: IVP; mg2 Site: right forearm; Point of Care Testing: Blood Glucose: 22:46 Blood Glucose: 266 mg/dL; mg2 Ranges: Intake: 17:00 IV: 1000ml; Total: 1000ml. mg2 18:30 IV: 1000ml; Total: 2000ml. mg2 Outcome: 22:15 Discharge ordered by . tw4 22:48 Discharged to home ambulatory. mg2 22:48 Condition: stable 22:48 Discharge instructions given to patient, Instructed on discharge instructions, follow up and referral plans. medication usage, Demonstrated understanding of instructions, follow-up care, medications, Prescriptions given X 1. 22:49 Patient left the ED. mg2 Signatures: MorrisonSondra zuluaga mr FernandezLadi RN RN ed1 Markel Núñez MD MD tw4 Rico Young RN RN mg2 Chelsy Krause RN ls4
[2018-10-24 22:18] LABS: Blood Morphology Comment NOT SEEN (NOT SEEN); Platelet Estimate ADEQ
[2018-10-25 01:40] VITALS: BP 146/92; TEMP 98; O2SAT 100
== END 2018-10-24 22:49 | disposition home or self-care (01) ==
LOC: ER 20:17
DX: R10.819 Abdominal tenderness, unspecified site (principal); I10 Essential (primary) hypertension; E78.5 Hyperlipidemia, unspecified; E03.9 Hypothyroidism, unspecified; F32.9 Major depressive disorder, single episode, unspecified; E11.9 Type 2 diabetes mellitus without complications; Z95.0 Presence of cardiac pacemaker; Z95.1 Presence of aortocoronary bypass graft
CPT/HCPCS: 85025; 80048; 36415; 82962; 80076; 83690; 96375; 96374; 99284; J2405

== ENCOUNTER 2018-10-26 12:37 | Emergency (ER) | payer OTHER ==
--- OUTSIDE RECORDS SUMMARY | 2018-10-26 12:40 | XMS REPORT ---
:1960 [facility] Address [address] [place] [address] Care Team Providers Name Role Phone TERA [...] Results Atomic Results Result Comments CTA BRAIN [facility] [address] [place], [place] [address] Patient Name: FAITH VANCE MR #: [id number] : 1960 Age/Sex: 57/M Req #: [id number] Adm Physician: TERA COX MD Ordered by: TERA COX MD Report #: [id number] Location: [facility] Room/Bed: [place] [address] Procedure: [id number] CT/CTA BRAIN Exam Date: 10/24/17 Exam Time: [...] PM Dictated By: ANA MARIA ARTEAGA MD 0205 Transcribed By: ANDREE on 10/24/17 163 COPY TO: TERA COX MD CT BRAIN WO [place] [address] Patient Name: FAITH VANCE MR #: [id number] : 1960 Age/Sex: 57/M Req #: [id number] Adm Physician: Ordered by: ARLETH WAHL MD Report #: [id number] Location: Room/Bed: Procedure: [id number] CT/CT BRAIN WO Exam Date: 10/23/17 Exam [...] PM Dictated By: ANA MARIA ARTEAGA MD 9860 Transcribed By: ANDREE on 10/23/174 COPY TO: ARLETH WAHL MD CTA CHEST [place] [address] Patient Name: FAITH VANCE MR #: [id number] : 1960 Age/Sex: 57/M Req #: [id number] Adm Physician: Ordered by: ARLETH WAHL MD Report #: [id number] Location: ER Room/Bed: Procedure: [id number] CT/CTA CHEST Exam Date: 10/23/17 Exam Time: [...] reviewed and is below limits set by [facility]). FINDINGS: Lines and Tubes: Pacemaker with [...] COPY TO: ARLETH WAHL MD CHEST SINGLE [address] (PORTABLE) [place] [address] Patient Name: FAITH VANCE MR #: [id number] : 1960 Age/Sex: 57/M Req #: [id number] Adm Physician: Ordered by: ARLETH WAHL MD Report #: [id number] Location: ER Room/Bed: Procedure: [id number] DX/CHEST SINGLE (PORTABLE) Exam Date: 10/23/17 Exam [...] TO: ARLETH WAHL MD CT BRAIN WO [place] [address] [place] [address] Patient Name: FAITH VANCE MR #: [id number] : 1960 Age/Sex: 56/M Req #: [id number] Adm Physician: Ordered by: JACQUELYN MONTES DE OCA MD Report #: [id number] Location: ER Room/Bed: Procedure: [id number] CT/CT BRAIN WO Exam Date: Exam Time: [...] MONTES DE OCA MD CT CERVICAL SPINE [place] [address] Patient Name: FAITH VANCE MR #: [id number] : 1960 Age/Sex: 56/M Req #: [id number] Adm Physician: Ordered by: JACQUELYN MONTES DE OCA MD Report #: [id number] Location: ER Room/Bed: Procedure: [id number] CT/CT CERVICAL SPINE WO Exam Date: Exam [...] JACQUELYN MONTES DE OCA MD CHEST SINGLE [address] (PORTABLE) [place] [address] Patient Name: FAITH VANCE MR #: [id number] : 1960 Age/Sex: 56/M Req #: [id number] Adm Physician: Ordered by: JACQUELYN MONTES DE OCA MD Report #: [id number] Location: ER Room/Bed: Procedure: [id number] DX/CHEST SINGLE (PORTABLE) Exam Date: 04/04/17 Exam [...] DE OCA MD HIP RIGHT 2-[address] (+/- PELVIS) [place] [address] Patient Name: FAITH VANCE MR #: [id number] : 1960 Age/Sex: 56/M Req #: [id number] Adm Physician: Ordered by: JACQUELYN MONTES DE OCA MD Report #: [id number] Location: ER Room/Bed: Procedure: [id number] DX/HIP RIGHT 2-3 VW (+/- PELVIS) Exam [...] TO: JACQUELYN MONTES DE OCA MD LUMBAR, [address] COMPLETE MIN 4VW [place] [address] Patient Name: FAITH VANCE MR #: [id number] : 1960 Age/Sex: 56/M Req #: [id number] Adm Physician: Ordered by: JACQUELYN MONTES DE OCA MD Report #: [id number] Location: ER Room/Bed: Procedure: [id number] DX/SP LUMBAR, COMPLETE MIN 4VW Exam Date: [...] JACQUELYN MONTES DE OCA MD US ABDOMEN [place] [address] Patient Name: FAITH VANCE MR #: [id number] : 1960 Age/Sex: 56/M Req #: [id number] [facility] Physician: NICHELLE PALACIOS MD Ordered by: SCOTT AMIN MD Report #: [id number] Location: [facility] Room/Bed: [place] [address] Procedure: [id number] US/US ABDOMEN COMPLETE Exam Date: 03/08/17 Exam [...] By: BROOKE BASHIR MD 1040 Transcribed By: NAIBAL on 03/08/17 1040 COPY TO: SCOTT AMIN MD [place] [address] Patient Name: FAITH VANCE MR #: [id number] : 1960 Age/Sex: 56/M Req #: [id number] Adm Physician: Ordered by: JACQUELYN MONTES DE OCA MD Report #: [id number] Location: ER Room/Bed: Procedure: [id number] DX/CHEST SINGLE (PORTABLE) Exam Date: 03/05/17 Exam [...]
--- NOTE | 2018-10-26 13:15 | RAD REPORT ---
EXAM DESCRIPTION: RAD - Chest Single View - 10/26/2018 1:08 pm CLINICAL HISTORY: syncope Chest pain. COMPARISON: Chest Single View dated 09/28/2018; Chest Single View dated 09/11/2018; Chest Single View dated 08/28/2018; Chest Single View dated 08/10/2018 FINDINGS: Portable technique limits examination quality. The lungs are grossly clear. The heart is normal in size. Sternotomy wires present. Dual lead pacer d evice present. IMPRESSION: No acute intrathoracic process suspected.
[2018-10-26] MEDS ORDERED: NA CHLORIDE 0.9% 1,000 ML ONE (13:18)
[2018-10-26 13:35] LABS: Absolute Lymphocytes (CBC) 1.4 K/uL (0.7-4.9); Absolute Monocytes 0.5 K/uL (0.1-1.3); Absolute Neutrophil 2.3 K/uL (1.8-8.0); Basophils % 0.6 % (0-1.3); Eosinophils % 3.5 % (0-4.4); Hematocrit 41.7 % (39.6-49.0); Lymphocytes % 31.6 % (15.3-44.8); Monocytes % 11.8 % (3.3-12.3); RBC Red Blood Cell Count 4.69 M/uL (4.33-5.43)
--- NOTE | 2018-10-26 13:56 | RAD REPORT ---
EXAM DESCRIPTION: CT - Head Brain Wo Cont - 10/26/2018 1:49 pm CLINICAL HISTORY: SYNCOPE Headache, drowsiness, syncope COMPARISON: Ct Stroke Brain Wo Cont dated 09/28/2018; Head angio dated 11/08/2017 TECHNIQUE: All CT scans are performed using dose optimization technique as appropriate and may inclu de automated exposure control or mA/KV adjustment according to patient size. FINDINGS: No intracranial hemorrhage, hydrocephalus or extra-axial fluid collection.No areas of brai n edema or evidence of midline shift. The paranasal sinuses and mastoids are essentially clear. The calvarium is intact. IMPRESSION: No acute intracranial abnormality.
[2018-10-26 13:59] LABS: BUN Blood Urea Nitrogen 22 mg/dL (7-18); Bicarbonate 20 mmol/L (21-32); Creatine Phosphokinase 113 U/L (39-308); Magnesium 2.1 mg/dL (1.8-2.4); Potassium 5.1 mmol/L (3.5-5.1); Sodium Level 136 mmol/L (136-145); Troponin (Emerg Dept Use Only) < 0.02 ng/mL (0.0-0.045)
[2018-10-26 14:04] LABS: Glucose Level 462 mg/dL (74-106)
[2018-10-26 14:14] LABS: Urine Blood NEGATIVE (NEG); Urine Glucose 2+ (NEG); Urine Protein NEGATIVE (NEG); Urine Specific Gravity 1.015 (1.005-1.030); Urine pH 8.5 (5.0-7.0)
[2018-10-26] MEDS ORDERED: INSULIN -REGULAR HUMAN 50 UNIT/0.5 ML ML ONE (15:03)
[2018-10-26] MEDS ORDERED: ONDANSETRON 4 MG/2 ML VIAL ONE (15:04)
[2018-10-26] MEDS ORDERED: ACETAMINOPHEN 500 MG TAB ONE (15:04)
--- NOTE | 2018-10-26 16:09 | EDPHYS ---
Physician Documentation [facility] Name: Ernie Rooney Age: 58 yrs Sex: Male : 1960 Arrival Date: 10/26/2018 Time: 12:41 Bed 15 Private MD: ED Physician Hawk Parrish HPI: 10/26 13:11 This 58 yrs old Male presents to ER via EMS with complaints of Syncope. rn 13:11 The patient has experienced syncope. Onset: The symptoms/episode began/occurred just rn prior to arrival. Duration: This was a single episode. Associated injury: The patient did not suffer any apparent associated injury. Current symptoms: generalized weakness. The patient has not recently seen a physician. Pt reports standing for 30 min for bus to pick him up, felt generalized weakness and lightheaded, passed out, reports has had numerous strokes in past that has left him with left sided weakness, reports today feels more weak but all over. Stopped taking insulin 6 weeks ago due to cost, reports glucose has been in 400s. Denies vomiting/diarrhea/chest pain/abd pain. . 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 - Social history:: Smoking status: Patient/guardian denies using tobacco. - Family history:: not pertinent. - Ebola Screening: : No symptoms or risks identified at this time. - Hospitalizations: : No recent hospitalization is reported. ROS: 13:11 Constitutional: Negative for fever, chills, and weight loss, Eyes: Negative for injury, rn pain, redness, and discharge, Neck: Negative for injury, pain, and swelling, Cardiovascular: Negative for chest pain, palpitations, and edema, Respiratory: Negative for shortness of breath, cough, wheezing, and pleuritic chest pain, Abdomen/GI: Negative for abdominal pain, nausea, vomiting, diarrhea, and constipation, MS/Extremity: Negative for injury and deformity, Skin: Negative for injury, rash, and discoloration, Neuro: Negative for headache, numbness, tingling, and seizure. Exam: 13:11 Constitutional: This is a well developed, well nourished patient who is awake, alert rn Head/Face: Normocephalic, atraumatic. Eyes: Pupils equal round and reactive to light, extra-ocular motions intact. Lids and lashes normal. Conjunctiva and sclera are non-icteric and not injected. Cornea within normal limits. Periorbital areas with no swelling, redness, or edema. ENT: dry MM Neck: Trachea midline, no thyromegaly or masses palpated, and no cervical lymphadenopathy. Supple, full range of motion without nuchal rigidity, or vertebral point tenderness. No Meningismus. Cardiovascular: Tachycardic, regular, no murmur Respiratory: Lungs have equal breath sounds bilaterally, clear to auscultation. No increased work of breathing, no retractions or nasal flaring. Abdomen/GI: soft, non-tender Skin: Warm, dry MS/ Extremity: Pulses equal, no cyanosis. Neurovascular intact. Full, normal range of motion. Equal circumference. Neuro: Awake and alert, GCS 15, oriented to person, place, time, and situation. Cranial nerves II-XII grossly intact. Motor strength 4/5 RUE/RLE, 3/5 LUE/LLE (states baseline). Sensory grossly intact. Vital Signs: 12:45 BP 101 / 74; Pulse 86; Resp 16 S; Temp 98.9(O); Pulse Ox 100% on R/A; Pain 10/10; aa5 13:20 BP 101 / 74; Pulse 78; Resp 16 S; Pulse Ox 97% on R/A; aa5 14:00 BP 108 / 77; Pulse 85; Resp 16 S; Pulse Ox 100% on R/A; aa5 15:01 BP 102 / 62; Pulse 82; Resp 16; Temp 98.3; Pulse Ox 99% on R/A; Pain 7/10; ch 15:49 BP 110 / 64; Pulse 72; Resp 18; Temp 97.8; Pulse Ox 99% on R/A; Pain 7/10; ch 15:49 pt requests "strong pain medication" pt educated on no narcotics prior to AMA due to inability to follow up safely with pt. pt states he doesnt want to stay. MDM: 12:46 Patient medically screened. pm1 16:00 Differential Diagnosis: cardiac arrhythmia, emotional response, idiopathic syncope, rn vasovagal episode, hyperglycemia, dehydration. Data reviewed: vital signs, nurses notes, lab test result(s), EKG, radiologic studies, CT scan, and as a result, I will admit patient. Counseling: I had a detailed discussion with the patient and/or guardian regarding: the historical points, exam findings, and any diagnostic results supporting the discharge/admit diagnosis, lab results, radiology results, the need for further work-up and treatment in the hospital. Response to treatment: the patient's symptoms have mildly improved after treatment. ED course: Pt not willing to wait for repeat glucose/lactate after hydration and insulin, states needs to leave, refused repeat studies or further evaluation, signed out AMA, understands risks of leaving, still doesn't have a plan for obtaining his insulin. Normal vitals at discharge. Neg KEtones and no AG.. 10/26 12:47 Order name: Magnesium; Complete Time: 14:17 10/26 12:47 Order name: Basic Metabolic Panel; Complete Time: 14: 10/26 12:47 Order name: CBC with Diff; Complete Time: 14:17 10/26 12:47 Order name: CPK; Complete Time: 14: 10/26 12:47 Order name: Troponin (emerg Dept Use Only); Complete Time: 14:17 10/26 12:49 Order name: Ketone, Serum; Complete Time: 15:10 10/26 12:47 Order name: CT Head Brain wo Cont; Complete Time: 14:17 10/26 12:48 Order name: XRAY Chest (1 view); Complete Time: 13:50 rn 10/26 12:50 Order name: Lactate; Complete Time: 14:17 10/26 14:00 Order name: Urine Dipstick--Ancillary (enter results); Complete Time: 14:53 10/26 12:47 Order name: EKG; Complete Time: 12:49 rn 10/26 12:47 Order name: Cardiac monitoring; Complete Time: 12:49 rn 10/26 12:47 Order name: EKG - Nurse/Tech; Complete Time: 12:49 rn 10/26 12:47 Order name: IV Saline Lock; Complete Time: 12:49 rn 10/26 12:47 Order name: Labs collected and sent; Complete Time: 13:16 rn 10/26 12:47 Order name: NPO; Complete Time: 12:49 rn 10/26 12:47 Order name: O2 Per Protocol; Complete Time: 12:49 rn 10/26 12:47 Order name: O2 Sat Monitoring; Complete Time: 12:49 rn 10/26 12:47 Order name: Urine Dipstick-Ancillary (obtain specimen); Complete Time: 13:58 rn 10/26 12:47 Order name: Glucose Level; Complete Time: 12:48 rn Administered Medications: 13:05 Drug: NS 0.9% 1000 ml Route: IV; Rate: 1000 ml; Site: right antecubital; aa5 15:20 Follow up: IV Status: Completed infusion; IV Intake: 1000ml ch 14:50 Drug: Zofran 4 mg Route: IVP; Site: right antecubital; ch 15:53 Follow up: Response: No adverse reaction; No change in condition ch 14:51 Drug: Insulin Regular Human 10 units {Co-Signature: bp (Khai Hernandez RN).} Route: ch Sub-Q; Site: left lower abdomen; 15:30 Follow up: Response: No adverse reaction; No adverse reaction, unable to recheck bgl ch because pt refuses more care. 15:01 Not Given (Patient Refused; pt states if the medication for pain is not a narcotic yhe ch does not want it. pt educated on bp being too low for nartcotics. ): Tylenol 1000 mg PO once Point of Care Testing: Blood Glucose: 12:49 Blood Glucose: 449 mg/dL; aa5 Ranges: Critical Glucose Levels:Adult <50 mg/dl or >400 mg/dl <40 mg/dl or >180 mg/dl Disposition: 10/26/18 16:09 Patient has left against medical advice. Impression: Syncope and collapse, Dehydration, Hyperglycemia, unspecified. - Patients states they are going to Home. - Condition is Stable. - Discharge Instructions: Dehydration, Adult, Hyperglycemia, Syncope, Blood Glucose Monitoring, Adult. Follow up: Private Physician; When: As needed; Reason: Recheck today's complaints, Re-evaluation by your physician. - Problem is new. - Symptoms have improved. Signatures: Dispatcher [employer] Oxana Mckeon, RN RN Hawk Izaguirre MD MD rn Calderon, Audri, SHEBA RN aa5 Rach Ramos RN RN ss Dilip Ponce, YAYA BATCH STILL OPERATOR pm1 Khai Hernandez RN bp Corrections: (The following items were deleted from the chart) 16:11 16:09 10/26/2018 16:09 Patients has left against medical advice. Impression: Syncope ss and collapse; Dehydration; Hyperglycemia, unspecified. Patient states they are going to Home. Condition is Stable. Follow up: Private Physician; When: As needed; Reason: Recheck today's complaints, Re-evaluation by your physician. Problem is new. Symptoms have improved. rn
--- NOTE | 2018-10-26 16:09 | ER ---
Nurse's Notes [facility] Name: Ernie Rooney Age: 58 yrs Sex: Male : 1960 Arrival Date: 10/26/2018 Time: 12:41 Bed 15 Private MD: Diagnosis: Syncope and collapse;Dehydration;Hyperglycemia, unspecified Presentation: 10/26 12:41 Presenting complaint: Patient states: "I passed out when I was out walking and when I aa5 woke up I called 911". Pt states "I started feeling dizzy and lightheaded before I passed out". pt c/o chronic back pain that is worse after syncopal episode. Pt reports he fell on grass. EMS reports pt's initial BP was 101/66 and is now 92/65, also reports pt was clammy and diaphoretic upon their arrival. Transition of care: patient was not received from another setting of care. Onset of symptoms was October 26, 2018. Care prior to arrival: None. 12:41 Acuity: TONE 2 aa5 12:41 Method Of Arrival: EMS: [facility] aa5 12:41 Initial Sepsis Screen: Does the patient meet any 2 criteria? No. Patient's initial aa5 sepsis screen is negative. Does the patient have a suspected source of infection? No. Patient's initial sepsis screen is negative. 12:41 Risk Assessment: Do you want to hurt yourself or someone else? Patient reports no aa5 desire to harm self or others. 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 - Social history:: Smoking status: Patient/guardian denies using tobacco. - Family history:: not pertinent. - Ebola Screening: : No symptoms or risks identified at this time. - Hospitalizations: : No recent hospitalization is reported. Screenin:00 Abuse screen: Denies threats or abuse. Nutritional screening: No deficits noted. aa5 Tuberculosis screening: No symptoms or risk factors identified. Fall Risk Fall in past 12 months (25 points). Secondary diagnosis (15 points) CVA, IV access (20 points). Ambulatory Aid- Crutches/Cane/Walker (15 pts). Total Cummings Fall Scale indicates High Risk Score (45 or more points). Fall prevention measures have been instituted. Side Rails Up X 2 Placed Close to Nursing Station. Assessment: 12:41 General: Appears comfortable, Behavior is calm, cooperative. Pain: Complains of pain in aa5 lumbar area, left low back and right low back Pain does not radiate. Pain currently is 10 out of 10 on a pain scale. Quality of pain is described as sharp, shooting, Pain began is chronic Is continuous. Neuro: Level of Consciousness is awake, alert, obeys commands, Oriented to person, place, time, situation, Nailing Machine Feeder are weak on left Moves all extremities. Full function Speech is normal, Facial symmetry appears normal, Pupils are PERRLA, Pt reports left sided weakness from previous CVA . Cardiovascular: Heart tones S1 S2 present Rhythm is regular. Respiratory: Airway is patent Respiratory effort is even, unlabored, Respiratory pattern is regular, symmetrical, Breath sounds are clear bilaterally. GI: No signs and/or symptoms were reported involving the gastrointestinal system. : No signs and/or symptoms were reported regarding the genitourinary system. EENT: No signs and/or symptoms were reported regarding the EENT system. Derm: Skin is pink, warm \\T\\ dry. Musculoskeletal: Range of motion: intact in all extremities, Pt is ambulatory with walker. 13:20 Reassessment: Patient is alert, oriented x 3, equal unlabored respirations, skin aa5 warm/dry/pink. 13:20 Pain: Pain currently is 10 out of 10 on a pain scale. aa5 13:45 Reassessment: Pt assisted to restroom, pt ambulatory with walker. . aa5 14:00 Reassessment: Patient is alert, oriented x 3, equal unlabored respirations, skin aa5 warm/dry/pink. 14:44 Reassessment: Patient appears in no apparent distress at this time. Patient and/or ch family updated on plan of care and expected duration. Pain level reassessed. Patient is alert, oriented x 3, equal unlabored respirations, skin warm/dry/pink. Reassessment: pt request pain medication. phys ician notified, pt bp still to low for narcotics. pt c/o nasuea as well new orders obtained. General: Appears in no apparent distress. comfortable, Behavior is calm, cooperative, appropriate for age. Pain: Complains of pain in head, generalized, as well as back pain Pain currently is 7 out of 10 on a pain scale. Pain began years ago. Neuro: No deficits noted. Level of Consciousness is awake, alert, obeys commands, Oriented to person, place, time, situation, Nailing Machine Feeder are equal bilaterally Moves all extremities. Full function Gait is steady, Speech is normal, Facial symmetry appears normal, Facial symmetry: tongue is midline, Pupils are PERRLA. 15:49 Reassessment: Patient appears in no apparent distress at this time. Patient and/or ch family updated on plan of care and expected duration. Pain level reassessed. Patient is alert, oriented x 3, equal unlabored respirations, skin warm/dry/pink. pt states he needs to leave so he does not miss the bus. pt refuses bgl check, pt refuses further labs. pt verb understanding of need to repeat bgl and lactate and cmp to ensure everything is alright. pt verb understanding of risk of worsening in condition, injury, , organ damage, or further complications. pts tates he needs to leave, and refuses further care. Vital Signs: 12:45 BP 101 / 74; Pulse 86; Resp 16 S; Temp 98.9(O); Pulse Ox 100% on R/A; Pain 10/10; aa5 13:20 BP 101 / 74; Pulse 78; Resp 16 S; Pulse Ox 97% on R/A; aa5 14:00 BP 108 / 77; Pulse 85; Resp 16 S; Pulse Ox 100% on R/A; aa5 15:01 BP 102 / 62; Pulse 82; Resp 16; Temp 98.3; Pulse Ox 99% on R/A; Pain 7/10; ch 15:49 BP 110 / 64; Pulse 72; Resp 18; Temp 97.8; Pulse Ox 99% on R/A; Pain 7/10; ch 15:49 pt requests "strong pain medication" pt educated on no narcotics prior to AMA due to ch inability to follow up safely with pt. pt states he doesnt want to stay. ED Course: 12:41 Patient arrived in ED. aa5 12:41 Arm band placed on Patient placed in an exam room, on a stretcher. aa5 12:41 Patient has correct armband on for positive identification. Bed in low position. Call aa5 light in reach. Side rails up X2. youth nutritional monitor on. Pulse ox on. NIBP on. 12:43 Triage completed. aa5 12:46 Dilip Ponce, DRAMATIC ART TEACHER is PHCP. pm1 12:46 Hawk Parrish MD is Attending Physician. pm1 12:48 Adriana Ricardo, RN is Primary Nurse. aa5 12:59 EKG done, by supply chain technician. reviewed by Hawk Parrish MD. at1 13:00 Inserted saline lock: 20 gauge in right antecubital area, using aseptic technique. ss Blood collected. 13:07 X-ray completed. Portable x-ray completed in exam room. Patient tolerated procedure jb2 well. 13:10 XRAY Chest (1 view) In Process Unspecified. EDMS 13:50 Urine collected: clean catch specimen, clear. dh3 13:53 CT Head Brain wo Cont In Process Unspecified. EDMS 14:15 Report given to Oxana Wesley RN. aa5 14:15 No provider procedures requiring assistance completed. aa5 14:25 Primary Nurse role handed off by Adriana Ricardo, SHEBA 14:25 Oxana Wesley, SHEBA is Primary Nurse. ch 15:49 No apparent distress. Resting quietly. ch 15:49 IV discontinued, intact, bleeding controlled, No redness/swelling at site. Pressure ch dressing applied. Administered Medications: 13:05 Drug: NS 0.9% 1000 ml Route: IV; Rate: 1000 ml; Site: right antecubital; aa5 15:20 Follow up: IV Status: Completed infusion; IV Intake: 1000ml ch 14:50 Drug: Zofran 4 mg Route: IVP; Site: right antecubital; 15:53 Follow up: Response: No adverse reaction; No change in condition ch 14:51 Drug: Insulin Regular Human 10 units {Co-Signature: bp (Khai Hernandez RN).} Route: ch Sub-Q; Site: left lower abdomen; 15:30 Follow up: Response: No adverse reaction; No adverse reaction, unable to recheck bgl ch because pt refuses more care. 15:01 Not Given (Patient Refused; pt states if the medication for pain is not a narcotic yhe ch does not want it. pt educated on bp being too low for nartcotics. ): Tylenol 1000 mg PO once Point of Care Testing: Blood Glucose: 12:49 Blood Glucose: 449 mg/dL; aa5 Ranges: Intake: 15:20 IV: 1000ml; Total: 1000ml. Outcome: 15:49 AMA AMA form signed 16:10 Condition: good ss 16:10 Instructed on follow up and referral plans. Demonstrated understanding of follow-up care, verbalized understanding risks involved leaving AMA. 16:11 Patient left the ED. ss Signatures: Dispatcher [employer] EDMS Oxana Wesley, RN RN Giovany Poe2 Hawk Parrish MD MD rn Calderon, Audri, RN RN aa5 Rach Ramos RN RN Cecelia Yanez, healthcare sales representative EKG Tat1 Dilip Ponce, DRAMATIC ART TEACHER DRAMATIC ART TEACHER pm1 [place] 3 Khai Hernandez RN bp Corrections: (The following items were deleted from the chart) 12:51 12:45 BP 101 / 74; Pulse 86bpm; Resp 16bpm; Spontaneous; Pulse Ox 100% RA; Pain 10/10; aa5 aa5 15:00 14:51 Tylenol 1000 mg PO [facility]
[2018-10-26 16:31] VITALS: O2SAT 99
[2018-10-26 16:33] VITALS: BP 110/64; TEMP 97.8
--- NOTE | 2018-10-27 09:04 | EKG ---
Test Date: 2018-10-26 Test Time: 12:42:09 Chalk Extruding Machine Operator: NEYDA MEASUREMENT RESULTS: Intervals: Rate: 82 WA: 338 QRSD: 84 QT: 382 QTc: 446 Reynolds: P: 9 WA: 338 QRS: -14 T: 5 INTERPRETIVE STATEMENTS: Sinus rhythm with 1st degree AV block Inferior infarct, age undetermined Anterior infarct, age undetermined Abnormal ECG Compared to ECG 10/08/2018 10:43:36 First degree AV block now present Myocardial infarct finding now present Ventricular-paced complex(es) or rhythm no longer present Electronically Signed On 10-27-18 09:01:04 CDT by Luca Royal
== END 2018-10-26 16:11 | disposition left against medical advice (07) ==
LOC: ER 12:37
DX: R55 Syncope and collapse (principal); E86.0 Dehydration; R73.9 Hyperglycemia, unspecified; F32.9 Major depressive disorder, single episode, unspecified; E11.9 Type 2 diabetes mellitus without complications; K21.9 Gastro-esophageal reflux disease without esophagitis; E78.00 Pure hypercholesterolemia, unspecified; E78.5 Hyperlipidemia, unspecified; I10 Essential (primary) hypertension; E03.9 Hypothyroidism, unspecified; I25.2 Old myocardial infarction; Z53.29 Procedure and treatment not carried out because of patient's decision for other reasons
CPT/HCPCS: 96361; 93005; 85025; 80048; 36415; 82010; 83735; 82550; 82962; 83605; 81003; 84484; 70450; 71045; 96372; 96374; 99285; J7030; J2405

== ENCOUNTER 2018-11-10 19:10 | Emergency (ER) | payer OTHER ==
--- OUTSIDE RECORDS SUMMARY | 2018-11-10 19:17 | XMS REPORT ---
:1960 Author Organization [facility] Address [address] [place] [address] Care Team Providers Name Role Phone TERA [...] Results Atomic Results Result Comments CTA BRAIN [facility] [address] [place], [place] [address] Patient Name: FAITH VANCE MR #: [id number] : 1960 Age/Sex: 57/M Req #: [id number] Adm Physician: TERA COX MD Ordered by: TERA COX MD Report #: [id number] Location: [facility] Room/Bed: [place] [address] Procedure: [id number] CT/CTA BRAIN Exam Date: 10/24/17 Exam Time: [...] PM Dictated By: ANA MARIA ARTEAGA MD [id number] Transcribed By: ANDREE on 10/24/17 1638 COPY TO: TERA COX MD CT BRAIN WO [place] [address] Patient Name: FAITH VANCE MR #: [id number] : 1960 Age/Sex: 57/M Req #: [id number] Adm Physician: Ordered by: ARLETH WAHL MD Report #: [id number] Location: Room/Bed: Procedure: [id number] CT/CT BRAIN WO Exam Date: 10/23/17 Exam [...] PM Dictated By: ANA MARIA ARTEAGA MD [id number] Transcribed By: ANDREE on 10/23/178 COPY TO: ARLETH WAHL MD CTA CHEST [place] [address] Patient Name: FAITH VANCE MR #: [id number] : 1960 Age/Sex: 57/M Req #: [id number] Adm Physician: Ordered by: ARLETH WAHL MD Report #: [id number] Location: ER Room/Bed: Procedure: [id number] CT/CTA CHEST Exam Date: 10/23/17 Exam Time: [...] and is below limits set by [facility]). FINDINGS: Lines and Tubes: Pacemaker with [...] COPY TO: ARLETH WAHL MD CHEST SINGLE [address] (PORTABLE) [place] [address] Patient Name: FAITH VANCE MR #: [id number] : 1960 Age/Sex: 57/M Req #: [id number] Adm Physician: Ordered by: ARLETH WAHL MD Report #: [id number] Location: ER Room/Bed: Procedure: [id number] DX/CHEST SINGLE (PORTABLE) Exam Date: 10/23/17 Exam [...] TO: ARLETH WAHL MD CT BRAIN WO [place] [id number] [place] [address] Patient Name: FAITH VANCE MR #: [id number] : 1960 Age/Sex: 56/M Req #: [id number] Adm Physician: Ordered by: JACQUELYN MONTES DE OCA MD Report #: [id number] Location: ER Room/Bed: Procedure: [id number] CT/CT BRAIN WO Exam Date: Exam Time: [...] MONTES DE OCA MD CT CERVICAL SPINE [place] [address] Patient Name: FAITH VANCE MR #: [id number] : 1960 Age/Sex: 56/M Req #: [id number] Adm Physician: Ordered by: JACQUELYN MONTES DE OCA MD Report #: [id number] Location: ER Room/Bed: Procedure: [id number] CT/CT CERVICAL SPINE WO Exam Date: Exam [...] as detailed above. Signed by: Dr. Seema Jaen M.D. on 04/04/2017 2:07 AM Dictated By: SEEMA JEAN MD 6 Transcribed By: ANDREE on 04/04/17206 COPY TO: JACQUELYN MONTES DE OCA MD CHEST SINGLE [address] (PORTABLE) [place] [address] Patient Name: FAITH VANCE MR #: [id number] : 1960 Age/Sex: 56/M Req #: [id number] Adm Physician: Ordered by: JACQUELYN MONTES DE OCA MD Report #: [id number] Location: ER Room/Bed: Procedure: [id number] DX/CHEST SINGLE (PORTABLE) Exam Date: 04/04/17 Exam [...] DE OCA MD HIP RIGHT 2-[address] (+/- PELVIS) [place] [address] Patient Name: FAITH VANCE MR #: [id number] : 1960 Age/Sex: 56/M Req #: [id number] Adm Physician: Ordered by: JACQUELYN MONTES DE OCA MD Report #: [id number] Location: ER Room/Bed: Procedure: [id number] DX/HIP RIGHT 2-3 VW (+/- PELVIS) Exam [...] TO: JACQUELYN MONTES DE OCA MD LUMBAR, [address] COMPLETE MIN 4VW [place] [address] Patient Name: FAITH VANCE MR #: [id number] : 1960 Age/Sex: 56/M Req #: [id number] Adm Physician: Ordered by: JACQUELYN MONTES DE OCA MD Report #: [id number] Location: ER Room/Bed: Procedure: [id number] DX/SP LUMBAR, COMPLETE MIN 4VW Exam Date: [...] MARCO A TALBOT MD 7 Transcribed By: ANDERE on 04/04/17227 COPY TO: JACQUELYN MONTES DE OCA MD US ABDOMEN [place] [address] Patient Name: FAITH VANCE MR #: [id number] : 1960 Age/Sex: 56/M Req #: [id number] [facility] Physician: NICHELLE PALACIOS MD Ordered by: SCOTT AMIN MD Report #: [id number] Location: [facility] Room/Bed: [place] [address] Procedure: [id number] US/US ABDOMEN COMPLETE Exam Date: 03/08/17 Exam [...] 03/08/17 1040 COPY TO: SCOTT AMIN MD [place] [address] Patient Name: FAITH VANCE MR #: [id number] : 1960 Age/Sex: 56/M Req #: [id number] Adm Physician: Ordered by: JACQUELYN MONTES DE OCA MD Report #: [id number] Location: ER Room/Bed: Procedure: [id number] DX/CHEST SINGLE (PORTABLE) Exam Date: 03/05/17 Exam [...]
[2018-11-10] MEDS ORDERED: ASPIRIN 81 MG CHEWABLE TABLET ONE (19:49)
[2018-11-10 20:05] LABS: Absolute Lymphocytes (CBC) 2.2 K/uL (0.7-4.9); Basophils % 0.5 % (0-1.3); Eosinophils % 2.2 % (0-4.4); Hematocrit 42.9 % (39.6-49.0); Lymphocytes % 27.2 % (15.3-44.8); MPV 9.2 fL (7.6-11.3); Monocytes % 7.2 % (3.3-12.3); RBC Red Blood Cell Count 4.89 M/uL (4.33-5.43)
[2018-11-10] MEDS ORDERED: ONDANSETRON 4 MG/2 ML VIAL ONE ×2 (20:09→22:14)
[2018-11-10] MEDS ORDERED: MORPHINE 2 MG/ML SYR ONE ×2 (20:09→22:14)
[2018-11-10 20:22] LABS: Protime INR 1.07
[2018-11-10 20:39] LABS: ALT/SGPT 89 U/L (12-78); AST/SGOT 29 U/L (15-37); Albumin 4.4 g/dL (3.4-5.0); Alkaline Phosphatase 198 U/L (45-117); BUN Blood Urea Nitrogen 18 mg/dL (7-18); Bicarbonate 20 mmol/L (21-32); Bilirubin Direct 0.3 mg/dL (0-0.2); Bilirubin Total 1.3 mg/dL (0.2-1.0); Glucose Level 325 mg/dL (74-106); Lipase 173 U/L (73-393); Magnesium 1.8 mg/dL (1.8-2.4); NT PRO-BNP 594 pg/mL (<125); Potassium 3.4 mmol/L (3.5-5.1); Protein, Total 8.7 g/dL (6.4-8.2); Sodium Level 138 mmol/L (136-145); Troponin (Emerg Dept Use Only) < 0.02 ng/mL (0.0-0.045)
[2018-11-10] MEDS ORDERED: POTASSIUM CL SA 10 MEQ TAB PO ONE (22:13)
--- NOTE | 2018-11-10 23:26 | ER ---
Nurse's Notes [facility] Name: Ernie Rooney Age: 58 yrs Sex: Male : 1960 Arrival Date: 11/10/2018 Time: 19:12 Bed 7 Private MD: Diagnosis: Chest pain. Right upper quadrant pain Presentation: 11/10 19:14 Presenting complaint: Patient states: Chest pain that started today while patient was aj [place] the [place]. Reports SOB as well. Transition of care: patient was not received from another setting of care. Onset of symptoms was November 10, 2018. Risk Assessment: Do you want to hurt yourself or someone else? Patient reports no desire to harm self or others. Initial Sepsis Screen: Does the patient meet any 2 criteria? No. Patient's initial sepsis screen is negative. Does the patient have a suspected source of infection? No. Patient's initial sepsis screen is negative. Care prior to arrival: None. 19:14 Method Of Arrival: Wheelchair aj 19:14 Acuity: TONE 2 aj Historical: - Allergies: 19:17 NKA; aj - Home Meds: 19:17 amlodipine 5 mg tab 1 tab once daily [Active]; clopidogrel 75 mg Oral tab 1 tab once aj daily [Active]; doxazosin 8 mg Oral tab 1 tab once daily [Active]; dicyclomine 20 mg Oral tab 1 tab 4 times per day [Active]; famotidine 20 mg Oral tab 1 tab every 12 hours [Active]; fenofibrate 200 mg Oral once daily [Active]; gabapentin 300 mg Oral cap 1 cap 3 times per day [Active]; glipizide 10 mg Oral tab 2 tabs 2 times per day [Active]; levothyroxine 50 mcg tab [Active]; lisinopril 2.5 mg Oral tab 1 tab once daily [Active]; metformin 1,000 mg Oral tab 1 tab 2 times per day [Active]; metoprolol tartrate 25 mg Oral tab [Active]; Urania 5-325 mg Oral tab 1 tab every 4 hours [Active]; omeprazole 20 mg Oral cpDR 1 cap once daily [Active]; Protonix 40 mg Oral TbEC 1 tab once daily [Active]; simvastatin 80 mg Oral tab daily [Active]; tamsulosin 0.4 mg Oral cp24 1 cap once daily [Active]; tizanidine 4 mg Oral cap 1 cap 3 times per day [Active]; venlafaxine 75 mg Oral tab 1 tab 2 times per day [Active]; tramadol 50 mg Oral tab 1 tab three times a day [Active]; - PMHx: 19:17 Back pain; CVA; Depression; Diabetes - NIDDM; GERD; High Cholesterol; Hyperlipidemia; aj Hypertension; Hypothyroidism; Left sided 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 - Social history:: Smoking status: Patient/guardian denies using tobacco. - Ebola Screening: : Patient negative for fever greater than or equal to 101.5 degrees Fahrenheit, and additional compatible Ebola Virus Disease symptoms Patient denies exposure to infectious person Patient denies travel to an Ebola-affected area in the 21 days before illness onset No symptoms or risks identified at this time. Screenin:05 Abuse screen: Denies threats or abuse. Denies injuries from another. Nutritional tl1 screening: No deficits noted. Tuberculosis screening: No symptoms or risk factors identified. Fall Risk IV access (20 points). Assessment: 19:45 Pain: Complains of pain in chest Pain currently is 8 out of 10 on a pain scale. Quality tl1 of pain is described as sharp, shooting. Neuro: Level of Consciousness is awake, alert, obeys commands, Oriented to person, place, time, situation. Cardiovascular: Reports chest pain, nausea, shortness of breath, since just LACING PRESSER after walking his [place] on the beach Rhythm is sinus rhythm with 1st degree heart block. Respiratory: Reports shortness of breath at rest patient states he has a history of anxiety attacks Airway is patent Trachea midline Respiratory effort is even, unlabored, Respiratory pattern is tachypnea Breath sounds are clear bilaterally. the patient has mild shortness of breath. GI: Abdomen is non-distended, Bowel sounds present X 4 quads. Abd is soft and non tender X 4 quads. : No signs and/or symptoms were reported regarding the genitourinary system. EENT: No signs and/or symptoms were reported regarding the EENT system. Derm: No signs and/or symptoms reported regarding the dermatologic system. 20:06 General: Appears in no apparent distress. unkempt, Behavior is cooperative, appropriate tl1 for age, anxious. 23:41 Reassessment: Patient appears in no apparent distress at this time. Patient and/or tl2 family updated on plan of care and expected duration. Pain level reassessed. Patient is alert, oriented x 3, equal unlabored respirations, skin warm/dry/pink. pt verbalized understanding of discharge instructions, need for follow up Patient states feeling better. Vital Signs: 19:17 Pulse 89; Resp 29; Temp 97.9; Pulse Ox 100% on R/A; Weight 81.65 kg; Height 5 ft. 7 in. aj (170.18 cm); 19:17 BP 116 / 62; tl1 20:04 BP 104 / 66; Pulse 91; Resp 26; Pulse Ox 100% ; tl1 21:02 BP 120 / 83; Pulse 84; Resp 19; Pulse Ox 99% on R/A; tl2 22:02 BP 130 / 79; Pulse 91; Resp 20; Pulse Ox 98% on R/A; tl2 23:41 BP 129 / 80; Pulse 78; Resp 18; Pulse Ox 100% on R/A; tl2 19:17 Body Mass Index 28.19 (81.65 kg, 170.18 cm) aj ED Course: 19:12 Patient arrived in ED. am2 19:15 Triage completed. aj 19:18 Arm band placed on right wrist. Patient placed in an exam room. aj 19:19 Armand Medrano MD is Attending Physician. pkl 19:30 Patient has correct armband on for positive identification. Placed in gown. Bed in low tl2 position. Call light in reach. Side rails up X 1. Adult w/ patient. 19:30 Inserted saline lock: 20 gauge in right antecubital area, using aseptic technique. tl1 Blood collected. 19:51 Estefania Canada, RN is Primary Nurse. tl1 20:06 No provider procedures requiring assistance completed. tl1 20:12 XRAY Chest (1 view) In Process Unspecified. EDMS 23:44 IV discontinued, intact, bleeding controlled, No redness/swelling at site. Pressure tl2 dressing applied. Administered Medications: 19:51 Drug: Aspirin 162 mg Route: PO; tl1 19:59 Drug: morphine 2 mg Route: IVP; Infused Over: 2 mins; Site: right antecubital; tl1 20:30 Follow up: Response: No adverse reaction; Pain is decreased tl2 19:59 Drug: Zofran 4 mg Route: IVP; Infused Over: 2 mins; Site: right antecubital; tl1 20:30 Follow up: Response: Nausea is decreased tl2 22:00 Drug: Zofran 4 mg Route: IVP; Site: right antecubital; tl2 22:30 Follow up: Response: No adverse reaction; Nausea is decreased tl2 22:01 Drug: morphine 2 mg Route: IVP; Site: right antecubital; tl2 22:30 Follow up: Response: No adverse reaction; Pain is decreased tl2 22:02 Drug: K-Dur 20 mEq Route: PO; tl2 23:45 Follow up: Response: No adverse reaction tl2 Outcome: 23:24 Discharge ordered by . pkce 23:44 Discharged to home via wheelchair, with family. tl2 23:44 Condition: stable 23:44 Discharge instructions given to patient, Instructed on discharge instructions, follow up and referral plans. Demonstrated understanding of instructions, follow-up care. 23:47 Patient left the ED. tl2 Signatures: Dispatcher [employer] EDCecelia Mittal RN RN aj Lam, Pin, MD MD pkEstefania Chandler RN RN tl1 Judi Conner RN RN tl2 Cecelia Lagunas Corrections: (The following items were deleted from the chart) 23:44 19:30 IV discontinued, intact, bleeding controlled, No redness/swelling at site. tl2 Pressure dressing applied, tl2
--- NOTE | 2018-11-10 23:27 | EDPHYS ---
Physician Documentation [facility] Name: Ernie Rooney Age: 58 yrs Sex: Male : 1960 Arrival Date: 11/10/2018 Time: 19:12 Bed 7 Private MD: ED Physician Armand Medrano HPI: 11/10 19:32 This 58 yrs old Male presents to ER via Wheelchair with unknown complaint. pkl 19:32 The patient or guardian reports chest pain that is located primarily in the substernal pkl area. Onset: just prior to arrival, 1 hour(s) ago. The pain radiates to left neck. Associated signs and symptoms: Pertinent positives: shortness of breath. The chest pain is described as stabbing. The patient has experienced similar episodes in the past, several times. Historical: - Allergies: 19:17 NKA; aj - Home Meds: 19:17 amlodipine 5 mg tab 1 tab once daily [Active]; clopidogrel 75 mg Oral tab 1 tab once aj daily [Active]; doxazosin 8 mg Oral tab 1 tab once daily [Active]; dicyclomine 20 mg Oral tab 1 tab 4 times per day [Active]; famotidine 20 mg Oral tab 1 tab every 12 hours [Active]; fenofibrate 200 mg Oral once daily [Active]; gabapentin 300 mg Oral cap 1 cap 3 times per day [Active]; glipizide 10 mg Oral tab 2 tabs 2 times per day [Active]; levothyroxine 50 mcg tab [Active]; lisinopril 2.5 mg Oral tab 1 tab once daily [Active]; metformin 1,000 mg Oral tab 1 tab 2 times per day [Active]; metoprolol tartrate 25 mg Oral tab [Active]; [place] 5-325 mg Oral tab 1 tab every 4 hours [Active]; omeprazole 20 mg Oral cpDR 1 cap once daily [Active]; Protonix 40 mg Oral TbEC 1 tab once daily [Active]; simvastatin 80 mg Oral tab daily [Active]; tamsulosin 0.4 mg Oral cp24 1 cap once daily [Active]; tizanidine 4 mg Oral cap 1 cap 3 times per day [Active]; venlafaxine 75 mg Oral tab 1 tab 2 times per day [Active]; tramadol 50 mg Oral tab 1 tab three times a day [Active]; - PMHx: 19:17 Back pain; CVA; Depression; Diabetes - NIDDM; GERD; High Cholesterol; Hyperlipidemia; aj Hypertension; Hypothyroidism; Left sided 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 - Social history:: Smoking status: Patient/guardian denies using tobacco. - Ebola Screening: : Patient negative for fever greater than or equal to 101.5 degrees Fahrenheit, and additional compatible Ebola Virus Disease symptoms Patient denies exposure to infectious person Patient denies travel to an Ebola-affected area in the 21 days before illness onset No symptoms or risks identified at this time. ROS: 19:32 Eyes: Negative for injury, pain, redness, and discharge, ENT: Negative for injury, pkl pain, and discharge, Neck: Negative for injury, pain, and swelling. 19:32 Cardiovascular: Positive for chest pain. 19:32 Respiratory: Positive for shortness of breath. 19:32 Abdomen/GI: Negative for abdominal pain, nausea, vomiting, and diarrhea. 19:32 Back: Negative for acute changes. 19:32 : Negative for urinary symptoms. 19:32 MS/extremity: Negative for acute changes. 19:32 Skin: Negative for rash. 19:32 Neuro: Negative for altered mental status. Exam: 19:32 Head/Face: Normocephalic, atraumatic. Eyes: Pupils equal round and reactive to light, pkl extra-ocular motions intact. Lids and lashes normal. Conjunctiva and sclera are non-icteric and not injected. Cornea within normal limits. Periorbital areas with no swelling, redness, or edema. ENT: Nares patent. No nasal discharge, no septal abnormalities noted. Tympanic membranes are normal and external auditory canals are clear. Oropharynx with no redness, swelling, or masses, exudates, or evidence of obstruction, uvula midline. Mucous membranes moist. Neck: Trachea midline, no thyromegaly or masses palpated, and no cervical lymphadenopathy. Supple, full range of motion without nuchal rigidity, or vertebral point tenderness. No Meningismus. Chest/axilla: Normal chest wall appearance and motion. Nontender with no deformity. No lesions are appreciated. Cardiovascular: Regular rate and rhythm with a normal S1 and S2. No gallops, murmurs, or rubs. Normal PMI, no JVD. No pulse deficits. Respiratory: Lungs have equal breath sounds bilaterally, clear to auscultation and percussion. No rales, rhonchi or wheezes noted. No increased work of breathing, no retractions or nasal flaring. Abdomen/GI: Soft, non-tender, with normal bowel sounds. No distension or tympany. No guarding or rebound. No evidence of tenderness throughout. Back: No spinal tenderness. No costovertebral tenderness. Full range of motion. Skin: Warm, dry with normal turgor. Normal color with no rashes, no lesions, and no evidence of cellulitis. MS/ Extremity: Pulses equal, no cyanosis. Neurovascular intact. Full, normal range of motion. Neuro: Awake and alert, GCS 15, oriented to person, place, time, and situation. Cranial nerves II-XII grossly intact. Motor strength 5/5 in all extremities. Sensory grossly intact. Cerebellar exam normal. Normal gait. Vital Signs: 19:17 Pulse 89; Resp 29; Temp 97.9; Pulse Ox 100% on R/A; Weight 81.65 kg; Height 5 ft. 7 in. aj (170.18 cm); 19:17 BP 116 / 62; tl1 20:04 BP 104 / 66; Pulse 91; Resp 26; Pulse Ox 100% ; tl1 21:02 BP 120 / 83; Pulse 84; Resp 19; Pulse Ox 99% on R/A; tl2 22:02 BP 130 / 79; Pulse 91; Resp 20; Pulse Ox 98% on R/A; tl2 23:41 BP 129 / 80; Pulse 78; Resp 18; Pulse Ox 100% on R/A; tl2 19:17 Body Mass Index 28.19 (81.65 kg, 170.18 cm) MDM: 19:19 Patient medically screened. pkl 23:22 Data reviewed: vital signs, nurses notes, lab test result(s), EKG, radiologic studies, pkl plain films. ED course: Patient feeling better. Advised to see PCP for follow up next week for further evaluations. Patient understood instructions.. 11/10 19:30 Order name: Basic Metabolic Panel pkl 11/10 19:30 Order name: CBC with Diff pkl 11/10 19:30 Order name: LFT's pkl 11/10 19:30 Order name: Magnesium pkl 11/10 19:30 Order name: NT PRO-BNP pkl 11/10 19:30 Order name: PT-INR pkl 11/10 19:30 Order name: Troponin (emerg Dept Use Only); Complete Time: 21:48 pkl 11/10 19:30 Order name: D-Dimer; Complete Time: 21:48 pkl 11/10 19:30 Order name: ETOH Level; Complete Time: 21:48 pkl 11/10 19:30 Order name: Lipase; Complete Time: 21:48 pkl 11/10 19:31 Order name: Basic Metabolic Panel; Complete Time: 21:48 EDMS 11/10 19:31 Order name: CBC with Automated Diff; Complete Time: 21:48 EDMS 11/10 19:32 Order name: Liver (Hepatic) Function; Complete Time: 21:48 EDMS 11/10 19:30 Order name: XRAY Chest (1 view) pkl 11/10 19:30 Order name: EKG; Complete Time: 19:32 pkl 11/10 19:30 Order name: Cardiac monitoring; Complete Time: 19:52 pkl 11/10 19:30 Order name: EKG - Nurse/Tech; Complete Time: 19:52 pkl 11/10 19:30 Order name: IV Saline Lock; Complete Time: 19:52 pkl 11/10 19:30 Order name: Labs collected and sent; Complete Time: 19:52 pkl 11/10 19:32 Order name: Magnesium; Complete Time: 21:48 EDMS 11/10 19:32 Order name: NT PRO-BNP; Complete Time: 21:48 EDMS 11/10 19:32 Order name: Protime (+INR); Complete Time: 21:48 EDMS 11/10 21:57 Order name: Troponin (emerg Dept Use Only); Complete Time: 23:20 tl2 11/10 19:30 Order name: O2 Per Protocol; Complete Time: 19:52 pkl 11/10 19:30 Order name: O2 Sat Monitoring; Complete Time: 19:52 pkl 11/10 21:57 Order name: EKG - Nurse/Tech; Complete Time: 22:00 tl2 Administered Medications: 19:51 Drug: Aspirin 162 mg Route: PO; tl1 19:59 Drug: morphine 2 mg Route: IVP; Infused Over: 2 mins; Site: right antecubital; tl1 20:30 Follow up: Response: No adverse reaction; Pain is decreased tl2 19:59 Drug: Zofran 4 mg Route: IVP; Infused Over: 2 mins; Site: right antecubital; tl1 20:30 Follow up: Response: Nausea is decreased tl2 22:00 Drug: Zofran 4 mg Route: IVP; Site: right antecubital; tl2 22:30 Follow up: Response: No adverse reaction; Nausea is decreased tl2 22:01 Drug: morphine 2 mg Route: IVP; Site: right antecubital; tl2 22:30 Follow up: Response: No adverse reaction; Pain is decreased tl2 22:02 Drug: K-Dur 20 mEq Route: PO; tl2 23:45 Follow up: Response: No adverse reaction tl2 Disposition: 11/10/18 23:24 Discharged to Home. Impression: Chest pain. Right upper quadrant pain. - Condition is Stable. - Medication Reconciliation Form, Thank You Letter, Antibiotic Education, Prescription Opioid Use form. - Follow up: Private Physician; When: 2 - 3 days; Reason: Re-evaluation by your physician. - Problem is new. - Symptoms have improved. Signatures: Dispatcher [employer] EDCecelia Mittal RN Armand Siddiqi MD MD pkl Estefania Canada RN RN tl1 Judi Conner RN RN tl2 Corrections: (The following items were deleted from the chart) 23:47 23:24 11/10/2018 23:24 Discharged to Home. Impression: Chest pain. Right upper quadrant tl2 pain. Condition is Stable. Forms are Medication Reconciliation Form, Thank You Letter, Antibiotic Education, Prescription Opioid Use. Follow up: Private Physician; When: 2 - 3 days; Reason: Re-evaluation by your physician. Problem is new. Symptoms have improved. pkl
[2018-11-11 01:03] VITALS: TEMP 97.9
[2018-11-11 01:08] VITALS: BP 129/80; O2SAT 100
--- NOTE | 2018-11-11 08:11 | RAD REPORT ---
EXAM DESCRIPTION: RAD - Chest Single View - 11/10/2018 8:12 pm CLINICAL HISTORY: Chest pain COMPARISON: October 26 TECHNIQUE: AP portable chest image was obtained 2009 hours . FINDINGS: Lung volumes are low. No acute lung parenchymal process. Pacemaker and sternotomy wires ar e in place. Heart and vasculature are normal. No measurable pleural effusion and no pneumothorax. No acute bony abnormality seen. No acute aortic findings suspected. IMPRESSION: No acute cardiopulmonary process. No significant interval change.
--- NOTE | 2018-11-12 07:56 | EKG ---
Test Date: 2018-11-10 Test Time: 19:40:02 Commercial Counsel: DMITRIY MEASUREMENT RESULTS: Intervals: Rate: 92 WY: 278 QRSD: 80 QT: 430 QTc: 531 [place]: P: 57 [place]: 278 QRS: -8 T: -80 INTERPRETIVE STATEMENTS: Sinus rhythm with 1st degree AV block Inferior infarct, age undetermined T wave abnormality, consider anterolateral ischemia Prolonged QT Abnormal ECG Compared to ECG 10/26/2018 12:42:09 T-wave abnormality now present Possible ischemia now present Prolonged QT interval now present Myocardial infarct finding still present Electronically Signed On 11-12-18 07:54:12 CDT by Igor Gordillo
--- NOTE | 2018-11-13 14:54 | EKG ---
Test Date: 2018-11-10 Test Time: 22:02:25 Specialist Field Engineer: MEASUREMENT RESULTS: Intervals: Rate: 91 [place]: QRSD: 84 QT: 474 QTc: 583 [place]: P: [place]: QRS: -1 T: 34 INTERPRETIVE STATEMENTS: Accelerated Junctional rhythm Possible Lateral infarct, age undetermined Inferior infarct, age undetermined T wave abnormality, consider anterior ischemia Prolonged QT Abnormal ECG Compared to ECG 11/10/2018 19:40:02 Accelerated junctional rhythm now present Sinus rhythm no longer present First degree AV block no longer present Myocardial infarct finding still present T-wave abnormality still present Possible ischemia still present Electronically Signed On 11-13-18 14:47:56 CDT by Luca Royal
== END 2018-11-10 23:47 | disposition home or self-care (01) ==
LOC: ER 19:10
DX: R10.11 Right upper quadrant pain (principal); I10 Essential (primary) hypertension; E03.9 Hypothyroidism, unspecified; E11.9 Type 2 diabetes mellitus without complications; E78.5 Hyperlipidemia, unspecified; E78.00 Pure hypercholesterolemia, unspecified; F32.9 Major depressive disorder, single episode, unspecified; Z86.73 Personal history of transient ischemic attack (TIA), and cerebral infarction without residual deficits
CPT/HCPCS: 93005 ×2; 85025; 80048; 36415; 80320; 83735; 85610; 85379; 80076; 84484 ×2; 83690; 83880; 71045; 96375; 96374; 99284; J2270 ×2; J2405 ×2

== ENCOUNTER 2018-12-07 15:59 | Emergency (ER) | payer OTHER ==
--- OUTSIDE RECORDS SUMMARY | 2018-12-07 16:02 | XMS REPORT ---
:1960 [facility] [address] [place] [address] Care Team Providers Name Role Phone TERA [...] Results Atomic Results Result Comments CTA BRAIN [facility] [address] [place], [place] [address] Patient Name: FAITH VANCE MR #: [id number] : 1960 Age/Sex: 57/M Req #: [id number] Adm Physician: TERA COX MD Ordered by: TERA COX MD Report #: [id number] Location: [facility] Room/Bed: [place] [address] Procedure: [id number] CT/CTA BRAIN Exam Date: 10/24/17 Exam Time: [...] PM Dictated By: ANA MARIA ARTEAGA MD [id number] Transcribed By: ANDREE on 10/24/17 1631 COPY TO: TERA COX MD CT BRAIN WO [place] [address] Patient Name: FAITH VANCE MR #: [id number] : 1960 Age/Sex: 57/M Req #: [id number] Adm Physician: Ordered by: ARLETH WAHL MD Report #: [id number] Location: Room/Bed: Procedure: [id number] CT/CT BRAIN WO Exam Date: 10/23/17 Exam [...] PM Dictated By: ANA MARIA ARTEAGA MD [id number] Transcribed By: ANDREE on 10/23/171 COPY TO: ARLETH WAHL MD CTA CHEST [place] [address] Patient Name: FAITH VANCE MR #: [id number] : 1960 Age/Sex: 57/M Req #: [id number] Adm Physician: Ordered by: ARLETH WAHL MD Report #: [id number] Location: ER Room/Bed: Procedure: [id number] CT/CTA CHEST Exam Date: 10/23/17 Exam Time: [...] reviewed and is below limits set by [facility]). FINDINGS: Lines and Tubes: Pacemaker [...] COPY TO: ARLETH WAHL MD CHEST SINGLE [address] (PORTABLE) [place] [address] Patient Name: FAITH VANCE MR #: [id number] : 1960 Age/Sex: 57/M Req #: [id number] Adm Physician: Ordered by: ARLETH WAHL MD Report #: [id number] Location: ER Room/Bed: Procedure: [id number] DX/CHEST SINGLE (PORTABLE) Exam Date: 10/23/17 Exam [...] TO: ARLETH WAHL MD CT BRAIN WO [place] [address] [place] [address] Patient Name: FAITH VANCE MR #: [id number] : 1960 Age/Sex: 56/M Req #: [id number] Adm Physician: Ordered by: JACQUELYN MONTES DE OCA MD Report #: [id number] Location: ER Room/Bed: Procedure: [id number] CT/CT BRAIN WO Exam Date: Exam Time: [...] MONTES DE OCA MD CT CERVICAL SPINE [place] [address] Patient Name: FAITH VANCE MR #: [id number] : 1960 Age/Sex: 56/M Req #: [id number] Adm Physician: Ordered by: JACQUELYN MONTES DE OCA MD Report #: [id number] Location: ER Room/Bed: Procedure: [id number] CT/CT CERVICAL SPINE WO Exam Date: Exam [...] JACQUELYN MONTES DE OCA MD CHEST SINGLE [address] (PORTABLE) [place] [address] Patient Name: FAITH VANCE MR #: [id number] : 1960 Age/Sex: 56/M Req #: [id number] Adm Physician: Ordered by: JACQUELYN MONTES DE OCA MD Report #: [id number] Location: ER Room/Bed: Procedure: [id number] DX/CHEST SINGLE (PORTABLE) Exam Date: 04/04/17 Exam [...] DE OCA MD HIP RIGHT 2-[address] (+/- PELVIS) [place] [address] Patient Name: FAITH VANCE MR #: [id number] : 1960 Age/Sex: 56/M Req #: [id number] Adm Physician: Ordered by: JACQUELYN MONTES DE OCA MD Report #: [id number] Location: ER Room/Bed: Procedure: [id number] DX/HIP RIGHT 2-3 VW (+/- PELVIS) Exam [...] TO: JACQUELYN MONTES DE OCA MD LUMBAR, [address] COMPLETE MIN 4VW [place] [address] Patient Name: FAITH VANCE MR #: [id number] : 1960 Age/Sex: 56/M Req #: [id number] Adm Physician: Ordered by: JACQUELYN MONTES DE OCA MD Report #: [id number] Location: ER Room/Bed: Procedure: [id number] DX/SP LUMBAR, COMPLETE MIN 4VW Exam Date: [...] JACQUELYN MONTES DE OCA MD US ABDOMEN [place] [address] Patient Name: FAITH VANCE MR #: [id number] : 1960 Age/Sex: 56/M Req #: [id number] [facility] Physician: NICHELLE PALACIOS MD Ordered by: SCOTT AMIN MD Report #: [id number] Location: [facility] Room/Bed: [place] [address] Procedure: [id number] US/US ABDOMEN COMPLETE Exam Date: 03/08/17 Exam [...] 03/08/17 1040 COPY TO: SCOTT AMIN MD [place] [address] Patient Name: FAITH VANCE MR #: [id number] : 1960 Age/Sex: 56/M Req #: [id number] Adm Physician: Ordered by: JACQUELYN MONTES DE OCA MD Report #: [id number] Location: ER Room/Bed: Procedure: [id number] DX/CHEST SINGLE (PORTABLE) Exam Date: 03/05/17 Exam [...]
--- NOTE | 2018-12-07 16:42 | RAD REPORT ---
EXAM DESCRIPTION: RAD - Chest Single View - 12/07/2018 4:36 pm CLINICAL HISTORY: COUGH Chest pain. COMPARISON: Chest Single View dated 11/18/2018; Chest Single View dated 11/10/2018; Chest Single View dated 10/26/2018; Chest Single View dated 09/28/2018 FINDINGS: Portable technique limits examination quality. The lungs are grossly clear. The heart is normal in size. No displaced fractures.Dual lead pacer [place] ce noted. IMPRESSION: No acute intrathoracic process suspected.
[2018-12-07 16:52] LABS: Absolute Lymphocytes (CBC) 2.3 K/uL (0.7-4.9); Basophils % 0.5 % (0-1.3); Eosinophils % 1.4 % (0-4.4); Hematocrit 40.1 % (39.6-49.0); Lymphocytes % 32.8 % (15.3-44.8); MPV 9.7 fL (7.6-11.3); Monocytes % 6.4 % (3.3-12.3); RBC Red Blood Cell Count 4.56 M/uL (4.33-5.43)
[2018-12-07 16:59] LABS: Protime INR 1.06
[2018-12-07] MEDS ORDERED: ASPIRIN 81 MG CHEWABLE TABLET ONE (17:03)
[2018-12-07] MEDS ORDERED: FENTANYL CITR 100 MCG/2 ML ONE (17:04)
[2018-12-07] MEDS ORDERED: INSULIN -REGULAR HUMAN 50 UNIT/0.5 ML ML ONE (17:05)
[2018-12-07] MEDS ORDERED: ONDANSETRON 4 MG/2 ML VIAL ONE (17:05)
[2018-12-07] MEDS ORDERED: NA CHLORIDE 0.9% 1,000 ML ONE (17:05)
[2018-12-07 17:10] LABS: ALT/SGPT 21 U/L (12-78); AST/SGOT 14 U/L (15-37); Albumin 4.2 g/dL (3.4-5.0); Alkaline Phosphatase 130 U/L (45-117); BUN Blood Urea Nitrogen 16 mg/dL (7-18); Bicarbonate 19 mmol/L (21-32); Bilirubin Direct 0.1 mg/dL (0-0.2); Bilirubin Total 0.7 mg/dL (0.2-1.0); Glucose Level 287 mg/dL (74-106); Lipase 168 U/L (73-393); Magnesium 1.8 mg/dL (1.8-2.4); NT PRO-BNP 549 pg/mL (<125); Potassium 3.9 mmol/L (3.5-5.1); Sodium Level 139 mmol/L (136-145); Troponin (Emerg Dept Use Only) < 0.02 ng/mL (0.0-0.045)
[2018-12-07] MEDS ORDERED: KETOROLAC 30 MG/ML INJ ONE (19:45)
--- NOTE | 2018-12-07 20:07 | ER ---
Nurse's Notes [facility] Name: Ernie Rooney Age: 58 yrs Sex: Male : 1960 Arrival Date: 12/07/2018 Time: 16:02 Bed 8 Private MD: Diagnosis: Chest pain, unspecified;Diabetes mellitus due to underlying condition with hyperglycemia Presentation: 12/07 16:02 Presenting complaint: EMS states: Chest pain radiating to L arm, dizziness, SOB, N/V/D, ph reports that chest pain began today while walking down stairs, also c/o pain to R side of abdomen, hx of gastroparesis, reports that pacemaker/defibrillator has "gone off about 4 times in 25 minutes." BGL 306. Transition of care: patient was not received from another setting of care. Onset of symptoms was December 07, 2018. Risk Assessment: Do you want to hurt yourself or someone else? Patient reports no desire to harm self or others. Initial Sepsis Screen: Does the patient meet any 2 criteria? No. Patient's initial sepsis screen is negative. Does the patient have a suspected source of infection? No. Patient's initial sepsis screen is negative. Care prior to arrival: Glucose check: 306. 16:02 Method Of Arrival: EMS: [facility] 16:02 Acuity: TONE 2 ph Historical: - Allergies: 16:07 NKA; ph - PMHx: 16:07 Back pain; CVA; Depression; Diabetes - NIDDM; GERD; High Cholesterol; Hyperlipidemia; ph Hypertension; Hypothyroidism; Left sided weakness from previous CVA; Myocardial infarction; - PSHx: 16:07 CABG; Cholecystectomy; multiple back surgeries; Pacemaker; Heart stents; ph - Immunization history:: Adult Immunizations unknown. - Social history:: Smoking status: Patient/guardian denies using tobacco. - Ebola Screening: : No symptoms or risks identified at this time. Screenin:11 Abuse screen: Denies threats or abuse. Denies injuries from another. Nutritional ph screening: No deficits noted. Tuberculosis screening: No symptoms or risk factors identified. Fall Risk No fall in past 12 months (0 pts). No secondary diagnosis (0 pts). IV access (20 points). Ambulatory Aid- None/Bed Rest/Nurse Assist (0 pts). Gait- Weak (10 pts.). Mental Status- Oriented to own ability (0 pts). Total Cummings Fall Scale indicates Low Risk Score (25-44 pts). Fall prevention measures have been instituted. Side Rails Up X 2 As available Patient and Family Educated on Fall Prevention Program and strategies. Assessment: 16:08 General: Appears in no apparent distress. uncomfortable, Behavior is cooperative, ph appropriate for age, anxious, Denies fever. Pain: Complains of pain in chest and abdomen. Pain: Pain radiates to left arm Pain currently is 9 out of 10 on a pain scale. Pain began suddenly. Neuro: Level of Consciousness is awake, alert, obeys commands, Oriented to person, place, time, situation, Reports dizziness, photophobia. Cardiovascular: Reports chest pain, diaphoresis, fatigue, lightheadedness, nausea, palpitations, shortness of breath, vomiting, Capillary refill < 3 seconds in bilateral fingers Patient's skin is warm and dry. Rhythm is sinus rhythm Chest pain quality is sharp, is located in left anterior chest wall radiates to left arm(s) began suddenly. Respiratory: Airway is patent Respiratory effort is even, Respiratory pattern is tachypnea. GI: Abdomen is round non-distended, Reports lower abdominal pain, upper abdominal pain, diarrhea, nausea, vomiting. Derm: Skin is intact, Skin is pink, warm \\T\\ dry. Musculoskeletal: Circulation, motion, and sensation intact. Range of motion: intact in all extremities. 17:42 Reassessment: Patient appears in no apparent distress at this time. Patient and/or rv family updated on plan of care and expected duration. Pain level reassessed. Patient is alert, oriented x 3, equal unlabored respirations, skin warm/dry/pink. Patient states feeling better. 18:42 Reassessment: Patient appears in no apparent distress at this time. Patient and/or rv family updated on plan of care and expected duration. Pain level reassessed. Patient is alert, oriented x 3, equal unlabored respirations, skin warm/dry/pink. Patient states feeling better. Patient states symptoms have improved. 19:40 Reassessment: awaiting result of repeat troponin. rv Vital Signs: 16:05 BP 125 / 75; Pulse 83; Resp 22; Temp 99.2; Pulse Ox 100% on R/A; Weight 61.23 kg; ph Height 5 ft. 7 in. (170.18 cm); Pain 9/10; 16:30 BP 120 / 76; Pulse 71; Resp 18; Pulse Ox 100% on R/A; rv 17:00 BP 136 / 72; Pulse 74; Resp 19; Pulse Ox 100% on R/A; Pain 7/10; rv 17:30 BP 108 / 71; Pulse 78; Resp 17; Pulse Ox 100% on R/A; rv 18:00 BP 95 / 71; Pulse 83; Resp 17; Pulse Ox 100% on R/A; rv 18:30 BP 103 / 69; Pulse 79; Resp 14; Pulse Ox 99% on R/A; rv 19:00 BP 104 / 67; Pulse 83; Resp 17; Pulse Ox 100% ; rv 19:30 BP 121 / 80; Pulse 77; Resp 17; Pulse Ox 100% on R/A; rv 20:17 BP 140 / 74; Pulse 74; Resp 17; Temp 98.6; Pulse Ox 100% ; rv 16:05 Body Mass Index 21.14 (61.23 kg, 170.18 cm) ph ED Course: 16:02 Patient arrived in ED. ph 16:03 Inserted saline lock: 18 gauge in left forearm, using aseptic technique. Blood rv collected. 16:05 Triage completed. ph 16:06 Arm band placed on Patient placed in an exam room, on a stretcher, on threat monitoring analyst, ph on pulse oximetry. 16:11 Patient maintains SpO2 saturation greater than 95% on room air. ph 16:11 Patient has correct armband on for positive identification. Placed in gown. Bed in low ph position. Call light in reach. Side rails up X2. traffic monitor specialist on. Pulse ox on. NIBP on. Door closed. Noise minimized. Warm blanket given. Head of bed elevated. 16:20 Luis Lang, SHEBA is Primary Nurse. rv 16:31 Mustapha Joe PA is PHCP. cp 16:31 Juwan Lux MD is Attending Physician. cp 16:36 Chest Single View In Process Unspecified. EDMS 19:37 Troponin (emerg Dept Use Only) Sent. jd3 19:38 Repeat lab(s) drawn. by ED staff, sent to lab. EKG done, by ED staff, reviewed by Mustapha WHITESIDE. 20:06 Igor Gordillo MD is Referral Physician. cp 20:17 No provider procedures requiring assistance completed. IV discontinued, intact, rv bleeding controlled, No redness/swelling at site. Pressure dressing applied. Administered Medications: 16:50 Drug: Zofran 4 mg Route: IVP; Site: left forearm; rv 17:32 Follow up: Response: No adverse reaction rv 16:50 Drug: NS 0.9% 1000 ml Route: IV; Rate: 1 bolus; Site: left forearm; rv 17:32 Follow up: IV Status: Completed infusion; IV Intake: 1000ml rv 16:50 Drug: Aspirin Chewable Tablet 324 mg Route: PO; rv 17:32 Follow up: Response: No adverse reaction rv 16:50 Drug: Insulin Regular Human 10 units {Co-Signature: ph (Freda Perez RN).} Route: IVP; rv Site: left forearm; 20:16 Follow up: Response: Blood sugar is lowered rv 16:55 Drug: fentaNYL (PF) 25 mcg Route: IVP; Site: left forearm; rv 17:32 Follow up: Response: Pain is decreased rv 17:32 Drug: fentaNYL (PF) 25 mcg Route: IVP; Site: left forearm; rv 20:16 Follow up: Response: No adverse reaction; Pain is decreased rv 19:37 Drug: TORadol 30 mg Route: IVP; Site: left forearm; jd3 20:16 Follow up: Response: No adverse reaction; Pain is decreased rv Point of Care Testing: Blood Glucose: 16:10 Blood Glucose: 311 mg/dL; ph Ranges: Intake: 17:32 IV: 1000ml; Total: 1000ml. rv Outcome: 20:07 Discharge ordered by MD. cp 20:17 Discharged to home ambulatory. rv 20:17 Condition: good 20:17 Discharge instructions given to patient, needs to call for a ride. patient stated his going to call the family. Instructed on discharge instructions, follow up and referral plans. medication usage, Demonstrated understanding of instructions, follow-up care, medications, Prescriptions given X 1. 20:18 Patient left the ED. rv Signatures: Dispatcher [employer] Freda Gutierrez RN RN ph Mustapha Joe PA PA cp Davies, Jonathon, RN RN jd3 Luis Lang RN RN rv Kvng Zuniga jp3 Freda Perez RN ph
--- NOTE | 2018-12-07 20:07 | EDPHYS ---
Physician Documentation [facility] Name: Ernie Rooney Age: 58 yrs Sex: Male : 1960 Arrival Date: 12/07/2018 Time: 16:02 Bed 8 Private MD: ED Physician Juwan Lux HPI: 12/07 16:20 This 58 yrs old Male presents to ER via EMS with complaints of Chest Pain. cp 16:20 The patient or guardian reports chest pain that is located primarily in the anterior cp chest wall, left. 16:20 Onset: today. The pain radiates to the left arm. cp 16:20 Associated signs and symptoms: Pertinent positives: abdominal pain, dizziness, cp palpitations, shortness of breath, Pertinent negatives: cough, diaphoresis, lower extremity pain, lower extremity swelling, syncope, vomiting. Duration: The patient or guardian reports a single episode, that is still ongoing. 16:20 Severity of pain: in the emergency department the pain is a 9 / 10. cp Historical: - Allergies: 16:07 NKA; ph - PMHx: 16:07 Back pain; CVA; Depression; Diabetes - NIDDM; GERD; High Cholesterol; Hyperlipidemia; ph Hypertension; Hypothyroidism; Left sided weakness from previous CVA; Myocardial infarction; - PSHx: 16:07 CABG; Cholecystectomy; multiple back surgeries; Pacemaker; Heart stents; ph - Immunization history:: Adult Immunizations unknown. - Social history:: Smoking status: Patient/guardian denies using tobacco. - Ebola Screening: : No symptoms or risks identified at this time. ROS: 16:20 Constitutional: Negative for body aches, chills, fever, poor PO intake. cp 16:20 Eyes: Negative for injury, pain, redness, and discharge. cp 16:20 ENT: Negative for drainage from ear(s), ear pain, sore throat, difficulty swallowing, difficulty handling secretions. 16:20 Neck: Negative for pain with movement, pain at rest, stiffness, bony tenderness. 16:20 Cardiovascular: Positive for chest pain, Negative for edema, palpitations. 16:20 Respiratory: Negative for cough, shortness of breath, wheezing. 16:20 Abdomen/GI: Positive for abdominal pain, Negative for vomiting, diarrhea, constipation, black/tarry stool, rectal bleeding. 16:20 Back: Negative for pain at rest, pain with movement, radiated pain. 16:20 : Negative for urinary symptoms, testicular pain 16:20 Skin: Negative for rash. 16:20 Neuro: Negative for altered mental status, headache, numbness, weakness. 16:20 All other systems are negative. Exam: 16:20 ECG was reviewed by the Attending Physician. cp 16:30 Constitutional: The patient appears in no acute distress, alert, awake, cp non-diaphoretic, non-toxic, well developed, well nourished, uncomfortable. 16:30 Head/Face: Normocephalic, atraumatic. cp 16:30 Eyes: Periorbital structures: appear normal, Conjunctiva: normal, no exudate, no injection, Sclera: no appreciated abnormality, Lids and lashes: appear normal, bilaterally. 16:30 ENT: External ear(s): are unremarkable, Nose: is normal, Mouth: Lips: moist, Oral mucosa: pink and intact, moist, Posterior pharynx: is normal, airway is patent, no erythema, no exudate. 16:30 Neck: ROM/movement: is normal, is supple, without pain, no range of motions limitations, no nuchal rigidity. 16:30 Chest/axilla: Inspection: normal, Palpation: crepitus, is not appreciated, tenderness, that is moderate, of the left clavicle and anterior aspect of left upper chest, that partially reproduces the patient's complaints. 16:30 Cardiovascular: Rate: normal, Rhythm: regular, Pulses: Pulses are 2+ in right radial artery and left radial artery. Edema: is not appreciated, JVD: is not appreciated. 16:30 Respiratory: the patient does not display signs of respiratory distress, Respirations: normal, no use of accessory muscles, no retractions, no splinting, no tachypnea, labored breathing, is not present, Breath sounds: are clear throughout, no decreased breath sounds, no stridor, no wheezing. 16:30 Abdomen/GI: Inspection: abdomen appears normal, Bowel sounds: active, all quadrants, Palpation: soft, in the , mild abdominal tenderness, in the right upper quadrant, rebound tenderness, is not appreciated, voluntary guarding, is not appreciated, involuntary guarding, is not appreciated. 16:30 Back: pain, is absent, ROM is normal. 16:30 Skin: no rash present. 16:30 Neuro: Orientation: to person, place \T\ time. Mentation: is normal, Motor: moves all fours, strength is normal. 19:40 ECG was reviewed by the Attending Physician. cp Vital Signs: 16:05 BP 125 / 75; Pulse 83; Resp 22; Temp 99.2; Pulse Ox 100% on R/A; Weight 61.23 kg; ph Height 5 ft. 7 in. (170.18 cm); Pain 9/10; 16:30 BP 120 / 76; Pulse 71; Resp 18; Pulse Ox 100% on R/A; rv 17:00 BP 136 / 72; Pulse 74; Resp 19; Pulse Ox 100% on R/A; Pain 7/10; rv 17:30 BP 108 / 71; Pulse 78; Resp 17; Pulse Ox 100% on R/A; rv 18:00 BP 95 / 71; Pulse 83; Resp 17; Pulse Ox 100% on R/A; rv 18:30 BP 103 / 69; Pulse 79; Resp 14; Pulse Ox 99% on R/A; rv 19:00 BP 104 / 67; Pulse 83; Resp 17; Pulse Ox 100% ; rv 19:30 BP 121 / 80; Pulse 77; Resp 17; Pulse Ox 100% on R/A; rv 20:17 BP 140 / 74; Pulse 74; Resp 17; Temp 98.6; Pulse Ox 100% ; rv 16:05 Body Mass Index 21.14 (61.23 kg, 170.18 cm) ph MDM: 16:31 Patient medically screened. cp 20:06 The patient was given aspirin in the Emergency Department. cp 20:06 Data reviewed: vital signs, nurses notes, lab test result(s), EKG, radiologic studies, cp plain films. Test interpretation: by ED physician or midlevel provider: ECG, plain radiologic studies. Counseling: I had a detailed discussion with the patient and/or guardian regarding: the historical points, exam findings, and any diagnostic results supporting the discharge/admit diagnosis, lab results, the need for outpatient follow up, a tube coater, to return to the emergency department if symptoms worsen or persist or if there are any questions or concerns that arise at home. Response to treatment: the patient's symptoms have markedly improved after treatment. Special discussion: Based on the patient's history, exam, and Dx evaluation, there is no indication for emergent intervention or inpatient Tx. It is understood by the patient/guardian that if the Sx's persist or worsen they need to return immediately for re-evaluation. ED course: VSS. Pain markedly improved. Initial and repeat troponin level and EKGs negative. Will discharge to home for continued monitoring. 12/07 16:07 Order name: Glucose, Ancillary Testing; Complete Time: 17:16 EDWI 12/07 17:16 Interpretation: Abnormal: GLUC,ANCIL 311. cp 12/07 16:08 Order name: Basic Metabolic Panel; Complete Time: 17:16 ph 12/07 17:17 Interpretation: Normal except: CO2 19; GLUC 287; GFR 59. cp 12/07 16:08 Order name: CBC with Diff; Complete Time: 17:16 ph 12/07 16:08 Order name: LFT's; Complete Time: 17:16 ph 12/07 16:08 Order name: Magnesium; Complete Time: 17:16 ph 12/07 16:08 Order name: NT PRO-BNP; Complete Time: 17:16 ph 12/07 16:08 Order name: PT-INR; Complete Time: 17:16 ph 12/07 16:08 Order name: Troponin (emerg Dept Use Only); Complete Time: 17:16 ph 12/07 16:08 Order name: Lipase; Complete Time: 17:16 ph 12/07 16:31 Order name: Chest Single View; Complete Time: 17:16 EDWI 12/07 17:48 Order name: Glucose, Ancillary Testing; Complete Time: 18:01 EDWI 12/07 18:01 Interpretation: Abnormal: GLUC,ANCIL 189. cp 12/07 19:27 Order name: Troponin (emerg Dept Use Only) jd3 12/07 16:08 Order name: EKG; Complete Time: 16:29 ph 12/07 16:08 Order name: Cardiac monitoring; Complete Time: 16:08 ph 12/07 16:08 Order name: EKG - Nurse/Tech; Complete Time: 16:30 ph 12/07 16:08 Order name: IV Saline Lock; Complete Time: 16:08 ph 12/07 16:08 Order name: Labs collected and sent; Complete Time: 16:09 ph 12/07 16:08 Order name: O2 Per Protocol; Complete Time: 16:08 ph 12/07 16:08 Order name: O2 Sat Monitoring; Complete Time: 16:08 ph 12/07 19:27 Order name: EKG - Nurse/Tech; Complete Time: 19:37 jd3 EC:20 Rate is 73 beats/min. Rhythm is regular. TX interval is prolonged at 324 msec. QRS cp interval is normal. QT interval is normal. T waves are Inverted in leads I, II, III, aVF, V2, V3, V4, V5, V6. Interpreted by me. Reviewed by me. 19:40 Rate is 76 beats/min. Rhythm is regular. TX interval is prolonged at 344 msec. QRS cp interval is normal. QT interval is normal. T waves are Inverted in leads I, V2, V3, V4, V5, V6. Interpreted by me. Reviewed by me. Administered Medications: 16:50 Drug: Zofran 4 mg Route: IVP; Site: left forearm; rv 17:32 Follow up: Response: No adverse reaction rv 16:50 Drug: NS 0.9% 1000 ml Route: IV; Rate: 1 bolus; Site: left forearm; rv 17:32 Follow up: IV Status: Completed infusion; IV Intake: 1000ml rv 16:50 Drug: Aspirin Chewable Tablet 324 mg Route: PO; rv 17:32 Follow up: Response: No adverse reaction rv 16:50 Drug: Insulin Regular Human 10 units {Co-Signature: ph (Freda Perez RN).} Route: IVP; rv Site: left forearm; 20:16 Follow up: Response: Blood sugar is lowered rv 16:55 Drug: fentaNYL (PF) 25 mcg Route: IVP; Site: left forearm; rv 17:32 Follow up: Response: Pain is decreased rv 17:32 Drug: fentaNYL (PF) 25 mcg Route: IVP; Site: left forearm; rv 20:16 Follow up: Response: No adverse reaction; Pain is decreased rv 19:37 Drug: TORadol 30 mg Route: IVP; Site: left forearm; jd3 20:16 Follow up: Response: No adverse reaction; Pain is decreased rv Point of Care Testing: Blood Glucose: 16:10 Blood Glucose: 311 mg/dL; ph Ranges: Critical Glucose Levels:Adult <50 mg/dl or >400 mg/dl <40 mg/dl or >180 mg/dl Disposition: 12/08 18:01 Co-signature as Attending Physician, Juwan Lux MD. Disposition: 12/07/18 20:07 Discharged to Home. Impression: Chest pain, unspecified, Diabetes mellitus due to underlying condition with hyperglycemia. - Condition is Stable. - Discharge Instructions: Nonspecific Chest Pain, Blood Glucose Monitoring, Adult, Diabetes Mellitus and Food, Aspirin and Your Heart. - Prescriptions for Ibuprofen 800 mg Oral Tablet - take 1 tablet by ORAL route every 8 hours As needed take with food; 30 tablet. - Medication Reconciliation Form, Thank You Letter, Antibiotic Education, Prescription Opioid Use form. - Follow up: Igor Gordillo MD; When: 2 - 3 days; Reason: Recheck today's complaints. - Problem is new. - Symptoms have improved. Signatures: Dispatcher [employer] [facility] Freda Perez RN RN ph Mustapha Joe PA PA cp Juwan Lux MD MD Shadi Coulter RN RN jd3 Luis Lang RN RN rv Freda Perez RN ph Corrections: (The following items were deleted from the chart) 12/07 16:35 16:29 Chest Single View+RAD.RAD.BRZ ordered. [facility] EDMS 20:07 20:07 12/07/2018 20:07 Discharged to Home. Impression: Chest pain, unspecified. cp Condition is Stable. Forms are Medication Reconciliation Form, Thank You Letter, Antibiotic Education, Prescription Opioid Use. Follow up: Igor Gordillo; When: 2 - 3 days; Reason: Recheck today's complaints. Problem is new. Symptoms have improved. cp 20:18 20:07 12/07/2018 20:07 Discharged to Home. Impression: Chest pain, unspecified; rv Diabetes mellitus due to underlying condition with hyperglycemia. Condition is Stable. Discharge Instructions: Nonspecific Chest Pain, Aspirin and Your Heart. Prescriptions for Ibuprofen 800 mg Oral Tablet - take 1 tablet by ORAL route every 8 hours As needed take with food; 30 tablet. and Forms are Medication Reconciliation Form, Thank You Letter, Antibiotic Education, Prescription Opioid Use. Follow up: Igro Gordillo; When: 2 - 3 days; Reason: Recheck today's complaints. Problem is new. Symptoms have improved. cp 12/08 17:16 12/07 16:20 Associated signs and symptoms: Pertinent positives: abdominal pain, cp Pertinent negatives: cough, diaphoresis, dizziness, lower extremity pain, lower extremity swelling, syncope, vomiting, cp
[2018-12-07 22:29] VITALS: O2SAT 100
[2018-12-07 22:32] VITALS: BP 140/74; TEMP 98.6
--- NOTE | 2018-12-08 09:36 | EKG ---
Test Date: 2018-12-07 Test Time: 19:32:46 Business Intelligence Administrator: GEE MEASUREMENT RESULTS: Intervals: Rate: 76 CT: 344 QRSD: 84 QT: 420 QTc: 472 [place]: P: 48 CT: 344 QRS: 3 T: -83 INTERPRETIVE STATEMENTS: Sinus rhythm with 1st degree AV block Possible Lateral infarct, age undetermined Inferior infarct, age undetermined ST & T wave abnormality, consider anterior ischemia Abnormal ECG Compared to ECG 12/07/2018 16:14:39 ST (T wave) deviation now present T-wave abnormality no longer present Myocardial infarct finding still present Possible ischemia still present Electronically Signed On 12-08-18 09:35:40 CDT by Luca Royal
--- NOTE | 2018-12-08 09:37 | EKG ---
Test Date: 2018-12-07 Test Time: 16:14:39 Equipment Service Technician: RV MEASUREMENT RESULTS: Intervals: Rate: 73 NV: 324 QRSD: 88 QT: 432 QTc: 475 [place] [employer] [employer]: P: 47 NV: 324 QRS: 8 T: 268 INTERPRETIVE STATEMENTS: Sinus rhythm with 1st degree AV block Possible Lateral infarct, age undetermined Inferior infarct, age undetermined T wave abnormality, consider anterior ischemia Abnormal ECG Compared to ECG 11/18/2018 21:36:49 T-wave abnormality now present Possible ischemia now present Sinus arrhythmia no longer present Myocardial infarct finding still present Electronically Signed On 12-08-18 09:35:46 CDT by Luca Royal
== END 2018-12-07 20:18 | disposition home or self-care (01) ==
LOC: ER 15:59
DX: E11.65 Type 2 diabetes mellitus with hyperglycemia (principal); I10 Essential (primary) hypertension; I25.2 Old myocardial infarction; Z95.0 Presence of cardiac pacemaker; Z95.1 Presence of aortocoronary bypass graft; Z95.818 Presence of other cardiac implants and grafts
CPT/HCPCS: 96361; 93005 ×2; 85025; 80048; 36415; 83735; 85610; 82962 ×2; 80076; 84484 ×2; 83690; 83880; 71045; 96375; 96374; 99285; J3010; J7030; J2405

== ENCOUNTER 2018-12-17 22:17 | Emergency (ER) | payer OTHER ==
--- OUTSIDE RECORDS SUMMARY | 2018-12-17 22:22 | XMS REPORT ---
:1960 [facility] Address [address] [place] [address] Care Team Providers Name Role Phone TERA [...] Results Result Comments CTA BRAIN [facility] [address] [place], [place] [address] Patient Name: FAITH VANCE MR #: [id number] : 1960 Age/Sex: 57/M Req #: [id number] Adm Physician: TERA COX MD Ordered by: TERA COX MD Report #: [id number] Location: [facility] Room/Bed: [place] [address] Procedure: [id number] CT/CTA BRAIN Exam Date: 10/24/17 Exam Time: [...] PM Dictated By: ANA MARIA ARTEAGA MD [id number] Transcribed By: ANDREE on 10/24/17 1631 COPY TO: TERA COX MD CT BRAIN WO [place] [address] Patient Name: FAITH VANCE MR #: [id number] : 1960 Age/Sex: 57/M Req #: [id number] Adm Physician: Ordered by: ARLETH WAHL MD Report #: [id number] Location: Room/Bed: Procedure: [id number] CT/CT BRAIN WO Exam Date: 10/23/17 Exam [...] PM Dictated By: ANA MARIA ARTEAGA MD [id number] Transcribed By: ANDREE on 10/23/175 COPY TO: ARLETH WAHL MD CTA CHEST [place] [address] Patient Name: FAIHT VANCE MR #: [id number] : 1960 Age/Sex: 57/M Req #: [id number] Adm Physician: Ordered by: ARLETH WAHL MD Report #: [id number] Location: ER Room/Bed: Procedure: [id number] CT/CTA CHEST Exam Date: 10/23/17 Exam Time: [...] and is below limits set by [facility]). FINDINGS: Lines and Tubes: Pacemaker [...] COPY TO: ARLETH WAHL MD CHEST SINGLE [address] (PORTABLE) [place] [address] Patient Name: FAITH VANCE MR #: [id number] : 1960 Age/Sex: 57/M Req #: [id number] Adm Physician: Ordered by: ARLETH WAHL MD Report #: [id number] Location: ER Room/Bed: Procedure: [id number] DX/CHEST SINGLE (PORTABLE) Exam Date: 10/23/17 Exam [...] TO: ARLETH WAHL MD CT BRAIN WO [place] [id number] [place] [address] Patient Name: AFITH VANCE MR #: [id number] : 1960 Age/Sex: 56/M Req #: [id number] Adm Physician: Ordered by: JACQUELYN MONTES DE OCA MD Report #: [id number] Location: ER Room/Bed: Procedure: [id number] CT/CT BRAIN WO Exam Date: Exam Time: [...] OCA MD CT CERVICAL SPINE [place] [address] Patient Name: FAITH VANCE MR #: [id number] : 1960 Age/Sex: 56/M Req #: [id number] Adm Physician: Ordered by: JACQUELYN MONTES DE OCA MD Report #: [id number] Location: ER Room/Bed: Procedure: [id number] CT/CT CERVICAL SPINE WO Exam Date: Exam [...] JACQUELYN MONTES DE OCA MD CHEST SINGLE [address] (PORTABLE) [place] [address] Patient Name: FAITH VANCE MR #: [id number] : 1960 Age/Sex: 56/M Req #: [id number] Adm Physician: Ordered by: JACQUELYN MONTES DE OCA MD Report #: [id number] Location: ER Room/Bed: Procedure: [id number] DX/CHEST SINGLE (PORTABLE) Exam Date: 04/04/17 Exam [...] DE OCA MD HIP RIGHT 2-[address] (+/- PELVIS) [place] [address] Patient Name: FAITH VANCE MR #: [id number] : 1960 Age/Sex: 56/M Req #: [id number] Adm Physician: Ordered by: JACQUELYN MONTES DE OCA MD Report #: [id number] Location: ER Room/Bed: Procedure: [id number] DX/HIP RIGHT 2-3 VW (+/- PELVIS) Exam [...] TO: JACQUELYN MONTES DE OCA MD LUMBAR, [address] COMPLETE MIN 4VW [place] [address] Patient Name: FAITH VANCE MR #: [id number] : 1960 Age/Sex: 56/M Req #: [id number] Adm Physician: Ordered by: JACQUELYN MONTES DE OCA MD Report #: [id number] Location: ER Room/Bed: Procedure: [id number] DX/SP LUMBAR, COMPLETE MIN 4VW Exam Date: [...] JACQUELYN MONTES DE OCA MD US ABDOMEN [place] [address] Patient Name: FAITH VANCE MR #: [id number] : 1960 Age/Sex: 56/M Req #: [id number] [facility] Physician: NICHELLE PALACIOS MD Ordered by: SCOTT AMIN MD Report #: [id number] Location: [facility] Room/Bed: [place] [address] Procedure: [id number] US/US ABDOMEN COMPLETE Exam Date: 03/08/17 Exam [...] 03/08/17 1040 COPY TO: SCOTT AMIN MD [place] [address] Patient Name: FAITH VANCE MR #: [id number] : 1960 Age/Sex: 56/M Req #: [id number] Adm Physician: Ordered by: JACQUELYN MONTES DE OCA MD Report #: [id number] Location: ER Room/Bed: Procedure: [id number] DX/CHEST SINGLE (PORTABLE) Exam Date: 03/05/17 Exam [...]
[2018-12-17 23:52] LABS: Absolute Lymphocytes (CBC) 2.7 K/uL (0.7-4.9); Basophils % 0.6 % (0-1.3); Hematocrit 38.8 % (39.6-49.0); Lymphocytes % 38.2 % (15.3-44.8); MPV 9.2 fL (7.6-11.3); RBC Red Blood Cell Count 4.39 M/uL (4.33-5.43)
[2018-12-18 00:03] LABS: Albumin 3.9 g/dL (3.4-5.0); Bilirubin Direct 0.1 mg/dL (0-0.2); Bilirubin Total 0.4 mg/dL (0.2-1.0); Potassium 3.9 mmol/L (3.5-5.1); Protein, Total 7.6 g/dL (6.4-8.2)
[2018-12-18] MEDS ORDERED: ONDANSETRON 4 MG/2 ML VIAL ONE (00:10)
[2018-12-18] MEDS ORDERED: MORPHINE 4 MG/ML SYR ONE ×2 (00:10→01:02)
--- NOTE | 2018-12-18 01:46 | ER ---
Nurse's Notes [facility] Name: Ernie Rooney Age: 58 yrs Sex: Male : 1960 Arrival Date: 12/17/2018 Time: 22:20 Bed 25 Private MD: Diagnosis: chronic abdominal pain Presentation: 12/17 22:40 Presenting complaint: Patient states: I am having this right side pain radiates to rr5 navel area for 4 1/2 months but it got worse today. denies nausea and vomiting. 22:40 Transition of care: patient was not received from another setting of care. Onset of rr5 symptoms was September 17, 2018. Risk Assessment: Do you want to hurt yourself or someone else? Patient reports no desire to harm self or others. Initial Sepsis Screen: Does the patient meet any 2 criteria? No. Patient's initial sepsis screen is negative. Does the patient have a suspected source of infection? No. Patient's initial sepsis screen is negative. Care prior to arrival: None. 22:40 Method Of Arrival: Ambulatory rr5 22:40 Acuity: TONE 3 rr5 Historical: - Allergies: 22:53 NKA; rr5 - Home Meds: 22:53 tamsulosin 0.4 mg oral cp24 [Active]; metoclopramide HCl 10 mg Oral tab 1 tab 4 times rr5 per day [Active]; lisinopril 2.5 mg Oral tab 1 tab once daily [Active]; gabapentin 100 mg oral cap 3 caps 3 times per day [Active]; famotidine 20 mg Oral tab 1 tab 2 times per day [Active]; dicyclomine 20 mg Oral tab 1 tab 6x a day [Active]; amlodipine 5 mg tab 1 tab once daily [Active]; - PMHx: 22:53 Back pain; CVA; Depression; Diabetes - NIDDM; GERD; High Cholesterol; Hyperlipidemia; rr5 Hypertension; Hypothyroidism; Left sided weakness from previous CVA; Myocardial infarction; Arthritis; Fibromyalgia; - PSHx: 22:53 dispersed neck; back surgery; Knee surgery; rr5 - Immunization history:: Adult Immunizations up to date. - Social history:: Smoking status: Patient/guardian denies using tobacco, Patient/guardian denies using alcohol, street drugs. - Ebola Screening: : Patient negative for fever greater than or equal to 101.5 degrees Fahrenheit, and additional compatible Ebola Virus Disease symptoms Patient denies exposure to infectious person Patient denies travel to an Ebola-affected area in the 21 days before illness onset. Screenin:45 Abuse screen: Denies threats or abuse. Denies injuries from another. Nutritional rr5 screening: No deficits noted. Tuberculosis screening: No symptoms or risk factors identified. Fall Risk IV access (20 points). Ambulatory Aid- Crutches/Cane/Walker (15 pts). Total Cummings Fall Scale indicates Low Risk Score (25-44 pts). Fall prevention measures have been instituted. Side Rails Up X 2 Placed close to Nursing Station Frequent Obs/Assesments occuring As available Patient and Family Educated on Fall Prevention Program and strategies. Assessment: 22:40 General: Appears in no apparent distress. uncomfortable, Behavior is calm, cooperative, rr5 appropriate for age. Pain: Complains of pain in right flank Pain does not radiate. Pain radiates to navel Pain currently is 9 out of 10 on a pain scale. Quality of pain is described as sharp, Pain began gradually, Is intermittent. 22:40 Reassessment: Patient appears in no apparent distress at this time. Neuro: Level of rr5 Consciousness is awake, alert, obeys commands, Oriented to person, place, time, situation, Appropriate for age. Cardiovascular: Capillary refill < 3 seconds Patient's skin is warm and dry. Respiratory: Airway is patent Respiratory effort is even, unlabored, Respiratory pattern is regular, symmetrical. GI: Abdomen is round Abdomen is tender to palpation in anterior aspect of right lateral abdomen Reports upper abdominal pain, Patient currently denies nausea, vomiting. : right flank area tenderness Reports pain in right flank(s). EENT: No signs and/or symptoms were reported regarding the EENT system. Derm: No signs and/or symptoms reported regarding the dermatologic system. Musculoskeletal: Circulation, motion, and sensation intact. Capillary refill < 3 seconds. 23:10 Reassessment: Patient appears in no apparent distress at this time. No changes from rr5 previously documented assessment. 12/18 00:00 Reassessment: Patient appears in no apparent distress at this time. Patient is alert, rr5 oriented x 3, equal unlabored respirations, skin warm/dry/pink. awaiting for result. 01:00 Reassessment: Patient appears in no apparent distress at this time. complaining of rr5 right flank area pain pain score 8/10. ED provider aware with order made and carried out. 02:00 Reassessment: Patient appears in no apparent distress at this time. Patient states rr5 feeling better. Patient states symptoms have improved. 02:06 Reassessment: Patient and/or family updated on plan of care and expected duration. Pain ea level reassessed. Patient is alert, oriented x 3, equal unlabored respirations, skin warm/dry/pink. Discharge instruction given to patient, verbalized the understanding of instruction. Pt left ED ambulatory tolerating well. Family awaiting in waiting room. Vital Signs: 12/17 22:40 BP 109 / 72; Pulse 85; Resp 17; Temp 98.1; Pulse Ox 100% ; Weight 79.38 kg; Height 5 rr5 ft. 7 in. (170.18 cm); Pain 9/10; 12/18 00:00 BP 115 / 75; Pulse 75; Resp 17; Pulse Ox 99% ; rr5 01:00 BP 118 / 70; Pulse 70; Resp 17; Pulse Ox 99% ; Pain 8/10; rr5 02:00 BP 113 / 76; Pulse 79; Resp 18; Temp 98(O); Pulse Ox 99% ; rr5 12/17 22:40 Body Mass Index 27.41 (79.38 kg, 170.18 cm) rr5 ED Course: 12/17 22:20 Patient arrived in ED. es 22:34 Markel Patten MD is Attending Physician. tw4 22:40 Arm band placed on. rr5 22:40 Patient has correct armband on for positive identification. Placed in gown. Bed in low rr5 position. Call light in reach. Side rails up X2. 22:44 Zay Sarah, RN is Primary Nurse. rr5 22:47 Triage completed. rr5 23:45 Radiology exam delayed due to Two CT exams ordered - AP/w and an A/P w/o. Waiting for kw1 clarification from Dr. Patten as to whether he wants both exams to be completed. 23:45 Inserted saline lock: 20 gauge in left forearm, using aseptic technique. Blood ea collected. 23:58 Radiology exam delayed due to lab results not completed at this time. (BUN/Creatinine). kw1 12/18 00:53 Abdomen In Process Unspecified. EDMS 02:06 No provider procedures requiring assistance completed. IV discontinued, intact, ea bleeding controlled, No redness/swelling at site. Pressure dressing applied. 02:11 Primary Nurse role handed off by Zay Sarah, RN rr5 Administered Medications: 12/17 23:55 Drug: Zofran 4 mg Route: IVP; Site: left forearm; rr5 12/18 01:00 Follow up: Response: No adverse reaction rr5 12/17 23:57 Drug: morphine 4 mg Route: IVP; Site: left forearm; rr5 12/18 01:00 Follow up: Response: No adverse reaction rr5 01:00 Drug: morphine 4 mg Route: IVP; Site: left forearm; rr5 02:00 Follow up: Response: No adverse reaction rr5 Outcome: 01:45 Discharge ordered by . tw4 02:08 Discharged to home ambulatory, with family. ea 02:08 Condition: stable 02:08 Discharge instructions given to patient, Instructed on discharge instructions, follow up and referral plans. medication usage, Demonstrated understanding of instructions, follow-up care, medications, Prescriptions given X 1. 02:09 Patient left the ED. ea 02:13 Patient left the ED. rr5 Signatures: Dispatcher [employer] Wanda Bruce Elena RN Giulia Taveras ea kw1 Markel Patten MD MD tw4 Zay Sarah, RN RN rr5
--- NOTE | 2018-12-18 01:47 | EDPHYS ---
Physician Documentation [facility] Name: Ernie Rooney Age: 58 yrs Sex: Male : 1960 Arrival Date: 12/17/2018 Time: 22:20 Bed 25 Private MD: ED Physician Markel Patten HPI: 12/18 03:30 This 58 yrs old Male presents to ER via Ambulatory with complaints of tw4 abdominal pain. 03:30 The patient presents with abdominal pain. The symptoms do not radiate. Associated signs tw4 and symptoms: none. The symptoms are described as sharp. 03:32 Onset: The symptoms/episode began/occurred 4 month(s) ago, and became worse today. tw4 Modifying factors: The symptoms are alleviated by supine position, the symptoms are aggravated by movement. Severity of pain: At its worst the pain was moderate in the emergency department the pain is unchanged. The patient has not experienced similar symptoms in the past. Historical: - Allergies: 12/17 22:53 NKA; rr5 - Home Meds: 22:53 tamsulosin 0.4 mg oral cp24 [Active]; metoclopramide HCl 10 mg Oral tab 1 tab 4 times rr5 per day [Active]; lisinopril 2.5 mg Oral tab 1 tab once daily [Active]; gabapentin 100 mg oral cap 3 caps 3 times per day [Active]; famotidine 20 mg Oral tab 1 tab 2 times per day [Active]; dicyclomine 20 mg Oral tab 1 tab 6x a day [Active]; amlodipine 5 mg tab 1 tab once daily [Active]; - PMHx: 22:53 Back pain; CVA; Depression; Diabetes - NIDDM; GERD; High Cholesterol; Hyperlipidemia; rr5 Hypertension; Hypothyroidism; Left sided weakness from previous CVA; Myocardial infarction; Arthritis; Fibromyalgia; - PSHx: 22:53 dispersed neck; back surgery; Knee surgery; rr5 - Immunization history:: Adult Immunizations up to date. - Social history:: Smoking status: Patient/guardian denies using tobacco, Patient/guardian denies using alcohol, street drugs. - Ebola Screening: : Patient negative for fever greater than or equal to 101.5 degrees Fahrenheit, and additional compatible Ebola Virus Disease symptoms Patient denies exposure to infectious person Patient denies travel to an Ebola-affected area in the 21 days before illness onset. ROS: 12/18 03:32 Constitutional: Negative for fever, chills, and weight loss, Eyes: Negative for injury, tw4 pain, redness, and discharge, Cardiovascular: Negative for chest pain, palpitations, and edema, Respiratory: Negative for shortness of breath, cough, wheezing, and pleuritic chest pain, Back: Negative for injury and pain, MS/Extremity: Negative for injury and deformity, Skin: Negative for injury, rash, and discoloration, Neuro: Negative for headache, weakness, numbness, tingling, and seizure. Abdomen/GI: Positive for abdominal pain, Negative for nausea and vomiting, nausea, vomiting, and diarrhea, nausea, vomiting, diarrhea, constipation, abdominal cramps, abdominal distension, black/tarry stool, rectal pain, rectal bleeding. Exam: 03:32 Constitutional: This is a well developed, well nourished patient who is awake, alert, tw4 and in no acute distress. Head/Face: Normocephalic, atraumatic. Chest/axilla: Normal chest wall appearance and motion. Nontender with no deformity. No lesions are appreciated. Cardiovascular: Regular rate and rhythm with a normal S1 and S2. No gallops, murmurs, or rubs. Normal PMI, no JVD. No pulse deficits. Respiratory: Lungs have equal breath sounds bilaterally, clear to auscultation and percussion. No rales, rhonchi or wheezes noted. No increased work of breathing, no retractions or nasal flaring. Back: No spinal tenderness. No costovertebral tenderness. Full range of motion. MS/ Extremity: Pulses equal, no cyanosis. Neurovascular intact. Full, normal range of motion. Neuro: Awake and alert, GCS 15, oriented to person, place, time, and situation. Cranial nerves II-XII grossly intact. Motor strength 5/5 in all extremities. Sensory grossly intact. Cerebellar exam normal. Normal gait. 03:32 Abdomen/GI: Inspection: abdomen appears normal, Bowel sounds: hyperactive, Palpation: moderate abdominal tenderness, in the right upper quadrant. 03:32 Back: CVA tenderness, that is mild, is noted on the right. Vital Signs: 12/17 22:40 BP 109 / 72; Pulse 85; Resp 17; Temp 98.1; Pulse Ox 100% ; Weight 79.38 kg; Height 5 rr5 ft. 7 in. (170.18 cm); Pain 9/10; 12/18 00:00 BP 115 / 75; Pulse 75; Resp 17; Pulse Ox 99% ; rr5 01:00 BP 118 / 70; Pulse 70; Resp 17; Pulse Ox 99% ; Pain 8/10; rr5 02:00 BP 113 / 76; Pulse 79; Resp 18; Temp 98(O); Pulse Ox 99% ; rr5 12/17 22:40 Body Mass Index 27.41 (79.38 kg, 170.18 cm) rr5 MDM: 12/17 22:34 Patient medically screened. tw12/18 03:32 Differential diagnosis: pancreatitis, Peptic Ulcer Disease, Perf. Duodenal Ulcer, Perf. tw4 Gastric Ulcer, Peritonitis. Data reviewed:. Data interpreted: Pulse oximetry:. Counseling: I had a detailed discussion with the patient and/or guardian regarding: the historical points, exam findings, and any diagnostic results supporting the discharge/admit diagnosis. Special discussion: I discussed with the patient/guardian in detail that at this point there is no indication for admission to the hospital. It is understood, however, that if the symptoms persist or worsen the patient needs to return immediately for re-evaluation. ED course: Pt CT scan was normal. Pt has chronic abdominal pain and states that he feels better. 12/17 23:13 Order name: Basic Metabolic Panel [facility] 12/17 23:13 Order name: CBC with Diff 12/17 23:13 Order name: Creatinine for Radiology [facility] 12/17 23:13 Order name: Hepatic Function [facility] 12/17 23:13 Order name: Lipase tw 12/17 23:13 Order name: IV Saline Lock; Complete Time: 23:58 tw 12/17 23:51 Order name: Abdomen EDMS 12/17 23:13 Order name: Labs collected and sent; Complete Time: 23:58 Administered Medications: 12/17 23:55 Drug: Zofran 4 mg Route: IVP; Site: left forearm; 5 12/18 01:00 Follow up: Response: No adverse reaction 5 12/17 23:57 Drug: morphine 4 mg Route: IVP; Site: left forearm; 5 12/18 01:00 Follow up: Response: No adverse reaction rr5 01:00 Drug: morphine 4 mg Route: IVP; Site: left forearm; rr5 02:00 Follow up: Response: No adverse reaction rr5 Disposition: 12/18/18 01:45 Discharged to Home. Impression: chronic abdominal pain. - Condition is Stable. - Discharge Instructions: Chronic Pain. - Prescriptions for Tramadol 50 mg Oral Tablet - take 1 tablet by ORAL route every 8 hours as needed; 12 tablet. - Medication Reconciliation Form, Thank You Letter, Antibiotic Education, Prescription Opioid Use form. - Follow up: Private Physician; When: Upon discharge from the Emergency Department; Reason: If symptoms return, Recheck today's complaints, Continuance of care. - Problem is new. - Symptoms have improved. Signatures: Dispatcher [employer] EDAZ Jamila Sebastian RN RN ea Wadley, Terrence, MD MD tw4 Zay Sarah RN RN rr5 Corrections: (The following items were deleted from the chart) 12/17 23:39 23:34 Abdomen Pelvis Wo Con+CT.RAD.BRZ ordered. [facility] EDA[facility] 23:51 23:34 Abdomen Pelvis W Con+CT.RAD.BRZ ordered. [facility] 23:52 23:39 Stone Protocol ordered. [facility] 12/18 02:09 01:45 12/18/2018 01:45 Discharged to Home. Impression: chronic abdominal pain. ea Condition is Stable. Forms are Medication Reconciliation Form, Thank You Letter, Antibiotic Education, Prescription Opioid Use. Follow up: Private Physician; When: Upon discharge from the Emergency Department; Reason: If symptoms return, Recheck today's complaints, Continuance of care. Problem is new. Symptoms have improved. tw4 02:13 02:09 12/18/2018 01:45 Discharged to Home. Impression: chronic abdominal pain. rr5 Condition is Stable. Discharge Instructions: Chronic Pain. Prescriptions for Tramadol 50 mg Oral Tablet - take 1 tablet by ORAL route every 8 hours as needed; 12 tablet. and Forms are Medication Reconciliation Form, Thank You Letter, Antibiotic Education, Prescription Opioid Use. Follow up: Private Physician; When: Upon discharge from the Emergency Department; Reason: If symptoms return, Recheck today's complaints, Continuance of care. Problem is new. Symptoms have improved. ea
[2018-12-18 03:30] VITALS: TEMP 98.1
[2018-12-18 03:31] VITALS: BP 115/75; O2SAT 99
--- NOTE | 2018-12-18 11:13 | RAD REPORT ---
EXAM DESCRIPTION: Abdomen Pelvis W/Wo Contrast CLINICAL HISTORY: The patient is 58 years old and is Male; Abd pain;Flank pain TECHNIQUE: Axial computed tomography images of the abdomen and pelvis without contrast material in o ne or both body regions followed by contrast material and further imaging in one or both body regions . Sagittal and coronal reformatted images were created and reviewed. This CT exam was performed u sing one or more of the following dose reduction techniques: automated exposure control, adjustment of the mA and/or kV according to patient size, and/or use of iterative reconstruction technique. COMPARISON: CT of the abdomen and pelvis November 18, 2018. FINDINGS: LUNG BASES: Scarring within the right lung base is present. ABDOMEN: LIVER: Unremarkable. No mass. GALLBLADDER AND BILE DUCTS: Surgical clips are present in the right upper quadrant, consistent w ith previous cholecystectomy. PANCREAS: Unremarkable. No mass. No ductal dilation. SPLEEN: Unremarkable. ADRENALS: Unremarkable. No mass. KIDNEYS AND URETERS: Bilateral nonspecific perinephric stranding is present. A punctate left int rarenal calcification is present. There is no hydronephrosis or hydroureter of either kidney. A 2.6 cm right renal cyst is present. No follow-up imaging is recommended. The kidneys enhance symmetrical ly. STOMACH AND BOWEL: The stomach is well distended with food contents. The small bowel is normal i n caliber. Minimal stool is present throughout the colon. There is no mucosal thickening or evidence of bowel obstruction. PELVIS: APPENDIX: The appendix is normal in caliber without surrounding inflammation. BLADDER: The bladder is well distended. No stones. REPRODUCTIVE: Unremarkable as visualized. ABDOMEN and PELVIS: INTRAPERITONEAL SPACE: Unremarkable. No free air. No significant fluid collection. BONES/JOINTS: Extensive degenerative changes spine is present. Postsurgical change of the lumbar spine on the left is noted. SOFT TISSUES: The soft tissues are normal. VASCULATURE: Atherosclerosis of the vasculature is present. No abdominal aortic aneurysm. LYMPH NODES: Unremarkable. No enlarged lymph nodes. IMPRESSION: No acute findings on this without and with contrast CT of the abdomen and pelvis to expl ain the patient's symptoms. Electronically signed by: Nicolasa Lai MD 12/18/2018 1:05 AM CDT Due to temporary technical issues with the PACS/Fluency reporting system, reports are being signed by the in house radiologist as a courtesy to ensure prompt reporting. The interpreting radiologist is f ully responsible for the content of the report.
== END 2018-12-18 02:13 | disposition home or self-care (01) ==
LOC: ER 22:17
DX: R10.9 Unspecified abdominal pain (principal); F32.9 Major depressive disorder, single episode, unspecified; E11.9 Type 2 diabetes mellitus without complications; E78.00 Pure hypercholesterolemia, unspecified; K21.9 Gastro-esophageal reflux disease without esophagitis; E78.5 Hyperlipidemia, unspecified; I10 Essential (primary) hypertension; E03.9 Hypothyroidism, unspecified; Z86.73 Personal history of transient ischemic attack (TIA), and cerebral infarction without residual deficits; I25.2 Old myocardial infarction
CPT/HCPCS: 85025; 80048; 36415; 80076; 83690; 74178; Q9967; 96374; 96375; 99284

== ENCOUNTER 2018-12-23 12:15 | Emergency (ER) | payer OTHER ==
[2018-12-23] MEDS ORDERED: METOCLOPRAMIDE 10 MG/2mL INJ ONE (12:48)
[2018-12-23] MEDS ORDERED: NA CHLORIDE 0.9% 1,000 ML ONE (12:49)
[2018-12-23] MEDS ORDERED: FENTANYL CITR 100 MCG/2 ML ONE (12:49)
[2018-12-23] MEDS ORDERED: PANTOPRAZOLE 40 MG INJ ONE (12:49)
--- OUTSIDE RECORDS SUMMARY | 2018-12-23 13:00 | XMS REPORT ---
:1960 [facility] [address] [place] [address] Care Team Providers Name Role Phone TERA [...] Results Atomic Results Result Comments CTA BRAIN [facility] [address] [place], [place] [address] Patient Name: FAITH VANCE MR #: [id number] : 1960 Age/Sex: 57/M Req #: [id number] Adm Physician: TERA COX MD Ordered by: TERA COX MD Report #: [id number] Location: [facility] Room/Bed: [place] [address] Procedure: [id number] CT/CTA BRAIN Exam Date: 10/24/17 Exam Time: [...] PM Dictated By: ANA MARIA ARTEAGA MD [id number] Transcribed By: ANDREE on 10/24/17 1636 COPY TO: TERA COX MD CT BRAIN WO [place] [address] Patient Name: FAITH VANCE MR #: [id number] : 1960 Age/Sex: 57/M Req #: [id number] Adm Physician: Ordered by: ARLETH WAHL MD Report #: [id number] Location: Room/Bed: Procedure: [id number] CT/CT BRAIN WO Exam Date: 10/23/17 Exam [...] PM on 10/23/2021. Signed by: Dr. Ana Maira Arteaga M.D. on 10/23/2017 4:43 PM Dictated By: ANA MARIA ARTEAGA MD [id number] Transcribed By: ANDREE on 10/23/175 COPY TO: ARLETH WAHL MD CTA CHEST [place] [address] Patient Name: FAITH VANCE MR #: [id number] : 1960 Age/Sex: 57/M Req #: [id number] Adm Physician: Ordered by: ARLETH WAHL MD Report #: [id number] Location: ER Room/Bed: Procedure: [id number] CT/CTA CHEST Exam Date: 10/23/17 Exam Time: [...] reviewed and is below limits set by [facility]). FINDINGS: Lines and Tubes: Pacemaker [...] COPY TO: ARLETH WAHL MD CHEST SINGLE [address] (PORTABLE) [place] [address] Patient Name: FAITH VANCE MR #: [id number] : 1960 Age/Sex: 57/M Req #: [id number] Adm Physician: Ordered by: ARLETH WAHL MD Report #: [id number] Location: ER Room/Bed: Procedure: [id number] DX/CHEST SINGLE (PORTABLE) Exam Date: 10/23/17 Exam [...] TO: ARLETH WAHL MD CT BRAIN WO [place] [id number] [place] [address] Patient Name: FAITH VANCE MR #: [id number] : 1960 Age/Sex: 56/M Req #: [id number] Adm Physician: Ordered by: JACQUELYN MONTES DE OCA MD Report #: [id number] Location: ER Room/Bed: Procedure: [id number] CT/CT BRAIN WO Exam Date: Exam Time: [...] OCA MD CT CERVICAL SPINE [place] [address] Patient Name: FAITH VANCE MR #: [id number] : 1960 Age/Sex: 56/M Req #: [id number] Adm Physician: Ordered by: JACQUELYN MONTES DE OCA MD Report #: [id number] Location: ER Room/Bed: Procedure: [id number] CT/CT CERVICAL SPINE WO Exam Date: Exam [...] JACQUELYN MONTES DE OCA MD CHEST SINGLE [address] (PORTABLE) [place] [address] Patient Name: FAITH VANCE MR #: [id number] : 1960 Age/Sex: 56/M Req #: [id number] Adm Physician: Ordered by: JACQUELYN MONTES DE OCA MD Report #: [id number] Location: ER Room/Bed: Procedure: [id number] DX/CHEST SINGLE (PORTABLE) Exam Date: 04/04/17 Exam [...] DE OCA MD HIP RIGHT 2-[address] (+/- PELVIS) [place] [address] Patient Name: FAITH VANCE MR #: [id number] : 1960 Age/Sex: 56/M Req #: [id number] Adm Physician: Ordered by: JACQUELYN MONTES DE OCA MD Report #: [id number] Location: ER Room/Bed: Procedure: [id number] DX/HIP RIGHT 2-3 VW (+/- PELVIS) Exam [...] TO: JACQUELYN MONTES DE OCA MD LUMBAR, [address] COMPLETE MIN 4VW [place] [address] Patient Name: FAITH VANCE MR #: [id number] : 1960 Age/Sex: 56/M Req #: [id number] Adm Physician: Ordered by: JACQUELYN MONTES DE OCA MD Report #: [id number] Location: ER Room/Bed: Procedure: [id number] DX/SP LUMBAR, COMPLETE MIN 4VW Exam Date: [...] JACQUELYN MONTES DE OCA MD US ABDOMEN [place] [address] Patient Name: FAITH VANCE MR #: [id number] : 1960 Age/Sex: 56/M Req #: [id number] [facility] Physician: NICHELLE PALACIOS MD Ordered by: SCOTT AMIN MD Report #: [id number] Location: [facility] Room/Bed: [place] [address] Procedure: [id number] US/US ABDOMEN COMPLETE Exam Date: 03/08/17 Exam [...] 03/08/17 1040 COPY TO: SCOTT AMIN MD [place] [address] Patient Name: FAITH VANCE MR #: [id number] : 1960 Age/Sex: 56/M Req #: [id number] Adm Physician: Ordered by: JACQUELYN MONTES DE OCA MD Report #: [id number] Location: ER Room/Bed: Procedure: [id number] DX/CHEST SINGLE (PORTABLE) Exam Date: 03/05/17 Exam [...]
[2018-12-23 13:03] LABS: Absolute Lymphocytes (CBC) 2.3 K/uL (0.7-4.9); Basophils % 0.5 % (0-1.3); Hematocrit 35.7 % (39.6-49.0); Lymphocytes % 35.6 % (15.3-44.8); MPV 9.4 fL (7.6-11.3)
[2018-12-23 13:06] LABS: Protime INR 1.02
[2018-12-23 13:25] LABS: ALT/SGPT 25 U/L (12-78); AST/SGOT 14 U/L (15-37); Albumin 3.8 g/dL (3.4-5.0); Alkaline Phosphatase 118 U/L (45-117); BUN Blood Urea Nitrogen 22 mg/dL (7-18); Bicarbonate 21 mmol/L (21-32); Bilirubin Direct < 0.1 mg/dL (0-0.2); Bilirubin Total 0.3 mg/dL (0.2-1.0); Lipase 444 U/L (73-393); Magnesium 2.1 mg/dL (1.8-2.4); Potassium 4.1 mmol/L (3.5-5.1); Protein, Total 7.4 g/dL (6.4-8.2); Sodium Level 133 mmol/L (136-145); Troponin (Emerg Dept Use Only) < 0.02 ng/mL (0.0-0.045)
[2018-12-23 13:26] LABS: Glucose Level 499 mg/dL (74-106)
[2018-12-23] MEDS ORDERED: INSULIN -REGULAR HUMAN 50 UNIT/0.5 ML ML ONE (13:32)
[2018-12-23] MEDS ORDERED: NA CHLORIDE 0.9% 2,000 ML ONE (13:59)
[2018-12-23] MEDS ORDERED: KETOROLAC 30 MG/ML INJ ONE (15:08)
--- NOTE | 2018-12-23 15:35 | RAD REPORT ---
EXAM DESCRIPTION: RAD - Chest Single View - 12/23/2018 1:18 pm CLINICAL HISTORY: Abdominal pain, abdominal distention COMPARISON: December 07 TECHNIQUE: AP portable chest image was obtained 1308 hours . FINDINGS: Lung volumes are low accentuating baseline interstitial pattern. No peripheral mass or con solidation. Mild failure or volume overload could be masked. Significant forms are not suspected. Pac emaker remains in place. Trachea is midline. Heart size is prominent. Vasculature is magnified by sha llow inspiration. No measurable pleural effusion and no pneumothorax. No acute bony abnormality seen. No acute aortic findings suspected. IMPRESSION: Limited shallow inspiration film. Early failure or volume overload could be masked.
--- NOTE | 2018-12-23 16:24 | RAD REPORT ---
EXAM DESCRIPTION: CT - Abdomen Pelvis W Contrast - 12/23/2018 4:07 pm CLINICAL HISTORY: Abdominal pain, abdominal distention, right flank pain and swelling COMPARISON: CT study October 17 TECHNIQUE: Biphasic, helical CT imaging of the abdomen and pelvis was performed following 100 ml non -ionic IV contrast. Oral contrast was given. All CT scans are performed using dose optimization technique as appropriate and may include automated exposure control or mA/KV adjustment according to patient size. FINDINGS: No suspicious findings in the lung bases. The liver, spleen, and pancreas show no suspicious findings. Gallbladder is absent. No biliary tree d ilatation. Renal function is symmetric. No pyelonephritis or acute renal parenchymal process seen. Renal cyst an terior mid right kidney is similar to the comparison. Urinary bladder is distended. Mild dilatation o f the bilateral ureters noted. This is believed to be a functional dilatation due to the large bladde r volume. Patient may have a urethral stricture or outflow problem. Prostate gland is not grossly abn ormal. No pyelonephritis findings. No obstructing or nonobstructing calculi. No bladder calculus. No adrenal abnormalities. No dilated bowel loops or bowel wall thickening. Appendix is normal. No free air, free fluid or infla mmatory stranding. No mass or bulky lymphadenopathy. Fat filled bilateral inguinal hernias are prese nt. No suspicious bony findings. IMPRESSION: No obstruction, free air or surgically emergent finding. Urinary bladder is distended and the bilateral ureters are mildly enlarged. Ureter dilatation is barbra eved to be functional and related to the bladder distention. Prostate gland is not grossly enlarged. The patient could have a urethral stricture or other form of outflow obstruction. No pyelonephritis or acute renal parenchymal process. Cholecystectomy change. No biliary tree dilatation. No acute bowel process.
[2018-12-23 16:54] LABS: Urine Blood NEGATIVE (NEG); Urine Glucose 3+ (NEG); Urine Protein NEGATIVE (NEG); Urine Specific Gravity <1.005 (1.005-1.030)
--- NOTE | 2018-12-23 16:58 | ER ---
Nurse's Notes [facility] Name: Ernie Rooney Age: 58 yrs Sex: Male : 1960 Arrival Date: 12/23/2018 Time: 12:19 Bed 20 Private MD: Diagnosis: Unspecified abdominal pain;Other chest pain Presentation: 12/23 12:19 Presenting complaint: Patient states: i had this R flank area pain and swelling for 4 hj 1/2 months ago and i had difficulty breathing, my chest is hurting too from not able to breathe properly; denies fever and chills; reports nausea;. Transition of care: patient was not received from another setting of care. Onset of symptoms was December 23, 2018. Risk Assessment: Do you want to hurt yourself or someone else? Patient reports no desire to harm self or others. Initial Sepsis Screen: Does the patient meet any 2 criteria? No. Patient's initial sepsis screen is negative. Does the patient have a suspected source of infection? No. Patient's initial sepsis screen is negative. Care prior to arrival: None. 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 Nutritional screening: No deficits noted. em Tuberculosis screening: No symptoms or risk factors identified. Fall Risk None identified. Assessment: 12:40 General: Appears in no apparent distress. uncomfortable, Behavior is calm, cooperative, em Denies fever. Pain: Complains of pain in chest and right lower quadrant Pain currently is 8 out of 10 on a pain scale. Pain began 4.5 months ago. Neuro: Level of Consciousness is awake, alert, obeys commands, Oriented to person, place, time, situation. Cardiovascular: Capillary refill < 3 seconds Patient's skin is warm and dry. Respiratory: Airway is patent Respiratory effort is even, unlabored, Respiratory pattern is regular, symmetrical, Breath sounds are clear bilaterally. Denies cough. GI: Abdomen is flat, Bowel sounds present X 4 quads. Abd is soft X 4 quads Abdomen is tender to palpation in right lower quadrant Reports nausea, Patient currently denies vomiting. : Urine is clear. Derm: Skin is intact, is healthy with good turgor, Skin is pink, warm \T\ dry. Musculoskeletal: Capillary refill < 3 seconds, Range of motion: intact in all extremities. 13:30 Reassessment: Patient appears in no apparent distress at this time. Patient and/or em family updated on plan of care and expected duration. Pain level reassessed. Patient is alert, oriented x 3, equal unlabored respirations, skin warm/dry/pink. rates pain 8/10, provider notified Patient states symptoms have not improved. 14:38 Reassessment: Patient appears in no apparent distress at this time. Patient and/or em family updated on plan of care and expected duration. Pain level reassessed. Patient is alert, oriented x 3, equal unlabored respirations, skin warm/dry/pink. rates pain 8/10, provider notified Patient states symptoms have not improved. 15:29 Reassessment: Patient appears in no apparent distress at this time. Patient and/or em family updated on plan of care and expected duration. Pain level reassessed. Patient is alert, oriented x 3, equal unlabored respirations, skin warm/dry/pink. rates pain 7/10, wheeled to CT via stretcher Patient states feeling better. 16:30 Reassessment: Patient appears in no apparent distress at this time. Patient and/or em family updated on plan of care and expected duration. Pain level reassessed. Patient is alert, oriented x 3, equal unlabored respirations, skin warm/dry/pink. Patient states feeling better. Vital Signs: 12:22 BP 95 / 65; Pulse 88; Resp 18; Temp 98.9(O); Pulse Ox 100% on R/A; Weight 79.38 kg; hj Height 5 ft. 7 in. (170.18 cm); Pain 9/10; 13:16 BP 117 / 68; Pulse 75; Resp 22; Pulse Ox 99% on R/A; Pain 8/10; em 14:13 BP 106 / 75; Pulse 78; Resp 20; Pulse Ox 100% on R/A; Pain 8/10; em 15:31 BP 125 / 75; Pulse 77; Resp 16; Pulse Ox 99% on R/A; Pain 7/10; em 16:30 BP 115 / 72; Pulse 71; Resp 18; Pulse Ox 99% on R/A; Pain 6/10; em 12:22 Body Mass Index 27.41 (79.38 kg, 170.18 cm) ED Course: 12:19 Patient arrived in ED. hj 12:21 Triage completed. hj 12:22 Arm band placed on left wrist. hj 12:24 Mustapha Joe PA is PHCP. cp 12:24 Hawk Parrish MD is Attending Physician. cp 12:26 Aj Rock LVN is Primary Nurse. em 12:40 Patient has correct armband on for positive identification. Placed in gown. Bed in low em position. Call light in reach. Side rails up X2. monitoring coordinator on. Pulse ox on. NIBP on. 12:50 Initial lab(s) drawn, by me, sent to lab. Inserted saline lock: 20 gauge in right em antecubital area, using aseptic technique. Blood collected. 13:18 XRAY Chest (1 view) In Process Unspecified. EDMS 16:07 CT Abd/Pelvis - PO and IV Contrast In Process Unspecified. EDMS 17:00 Bladder scan completed. 180 mL. em 17:29 No provider procedures requiring assistance completed. IV discontinued, intact, em bleeding controlled, No redness/swelling at site. Pressure dressing applied. Administered Medications: 12:55 Drug: Reglan 10 mg Route: IVP; Site: right antecubital; iw 13:15 Follow up: Response: No adverse reaction em 12:58 Drug: ProTONIX 40 mg Route: IVP; Site: right antecubital; iw 13:16 Follow up: Response: No adverse reaction em 13:00 Drug: NS 0.9% 1000 ml Route: IV; Rate: 1 bolus; Site: right antecubital; em 14:14 Follow up: IV Status: Completed infusion; IV Intake: 1000ml em 13:00 Drug: fentaNYL (PF) 25 mcg Route: IVP; Site: right antecubital; iw 13:16 Follow up: Response: No adverse reaction; Pain is unchanged, physician notified em 13:38 Drug: Insulin Regular Human 10 units {Co-Signature: em (Aj Rock MEDIA MONITOR).} Route: IVP; iw Site: right antecubital; 15:05 Follow up: Response: No adverse reaction; Blood sugar is lowered em 13:40 Drug: fentaNYL (PF) 25 mcg Route: IVP; Site: right antecubital; em 14:06 Follow up: Response: No adverse reaction em 14:06 Drug: NS 0.9% 1000 ml Route: IV; Rate: 1 bolus; Site: right antecubital; em 15:24 Follow up: IV Status: Completed infusion; IV Intake: 1000ml em 15:20 Drug: TORadol 30 mg Route: IVP; Site: right antecubital; iw 17:27 Follow up: Response: No adverse reaction; Pain is decreased em 15:24 Drug: NS 0.9% 1000 ml Route: IV; Rate: 125 ml/hr; Site: right antecubital; em 17:25 Follow up: IV Status: Order to discontinue infusion; IV Intake: 200ml em 15:44 CANCELLED (Physician Discretion): Tetanus-Diphtheria Toxoid Adult 0.5 ml IM once cp Point of Care Testing: Blood Glucose: 14:55 Blood Glucose: 207 mg/dL; em Ranges: Intake: 14:14 IV: 1000ml; Total: 1000ml. em 15:24 IV: 1000ml; Total: 2000ml. em Outcome: 16:55 Discharge ordered by MD. cp 17:29 Discharged to home ambulatory. em 17:29 Condition: good 17:29 Discharge instructions given to patient, Instructed on discharge instructions, follow up and referral plans. medication usage, Demonstrated understanding of instructions, follow-up care, medications, Prescriptions given X 2. 17:32 Patient left the ED. em Signatures: Dispatcher [employer] Aj Rubi LVN MEDIA MONITOR em Polly Leal RN RN Ernie Venegas RN RN hj Page, Corey, PA PA cp Aj Rock MEDIA MONITOR em Corrections: (The following items were deleted from the chart) 12:24 12:22 Pulse 88bpm; Resp 18bpm; Pulse Ox 100% RA; Temp 98.9F Oral; 79.38 kg; Height 5 hj ft. 7 in.; BMI: 27.4; Pain 9/10; hj 12:24 12:22 Pulse 88bpm; Resp 18bpm; Pulse Ox 100% RA; Temp 98.9F Oral; 79.38 kg; Height 5 hj ft. 7 in.; BMI: 27.4; Pain 9/10; hj
--- NOTE | 2018-12-23 16:59 | EDPHYS ---
Physician Documentation [facility] Name: Ernie Rooney Age: 58 yrs Sex: Male : 1960 Arrival Date: 12/23/2018 Time: 12:19 Bed 20 Private MD: ED Physician Hawk Parrish HPI: 12/23 12:50 This 58 yrs old Male presents to ER via Ambulatory with complaints of Flank cp Pain, Chest Pain. 12:50 The patient complains of pain in the right lateral abdomen. The pain radiates to the cp chest. Onset: The symptoms/episode began/occurred for months. Associated signs and symptoms: Pertinent negatives: diarrhea, dysuria, fever, hematuria, pain radiating to the lower extremities, vomiting. Severity of pain: in the emergency department the pain is actually worse moderately. The patient has experienced similar episodes in the past, multiple times, but today's symptoms are worse, more painful. Historical: - Allergies: 12:22 NKA; hj - PMHx: 12:22 Arthritis; Back pain; CVA; Depression; Diabetes - NIDDM; Fibromyalgia; GERD; High hj Cholesterol; Hyperlipidemia; Hypertension; Hypothyroidism; Left sided weakness from previous CVA; Myocardial infarction; - PSHx: 12:22 dispersed neck; back surgery; Knee surgery; hj ROS: 13:00 Constitutional: Negative for body aches, chills, fever, poor PO intake. cp 13:00 Eyes: Negative for injury, pain, redness, and discharge. cp 13:00 ENT: Negative for drainage from ear(s), ear pain, sore throat, difficulty swallowing, difficulty handling secretions. 13:00 Cardiovascular: Positive for chest pain, Negative for edema, palpitations. 13:00 Respiratory: Negative for cough, shortness of breath, wheezing. 13:00 Abdomen/GI: Positive for abdominal pain, Negative for vomiting, diarrhea, constipation, black/tarry stool, rectal bleeding. 13:00 Back: Negative for radiated pain. 13:00 : Negative for urinary symptoms, testicular pain 13:00 Skin: Negative for cellulitis, rash. 13:00 Neuro: Negative for altered mental status, headache, weakness. 13:00 All other systems are negative. Exam: 13:05 Constitutional: The patient appears in no acute distress, alert, awake, cp non-diaphoretic, non-toxic, well developed, well nourished. 13:05 Head/Face: Normocephalic, atraumatic. cp 13:05 Eyes: Periorbital structures: appear normal, Conjunctiva: normal, no exudate, no injection, Sclera: no appreciated abnormality, Lids and lashes: appear normal, bilaterally. 13:05 ENT: External ear(s): are unremarkable, Nose: is normal, Mouth: Lips: moist, Oral mucosa: moist, Posterior pharynx: is normal, airway is patent, no erythema, no exudate. 13:05 Neck: ROM/movement: is normal, is supple, without pain, no range of motions limitations, no nuchal rigidity. 13:05 Chest/axilla: Inspection: normal, Palpation: is normal, no crepitus, no tenderness. 13:05 Cardiovascular: Rate: normal, Rhythm: regular, Edema: is not appreciated, JVD: is not appreciated. 13:05 Respiratory: the patient does not display signs of respiratory distress, Respirations: normal, no use of accessory muscles, no retractions, no splinting, no tachypnea, labored breathing, is not present, Breath sounds: are clear throughout, no decreased breath sounds, no stridor, no wheezing. 13:05 Abdomen/GI: Inspection: distension, that is mild, in the right upper quadrant and right lower quadrant, Bowel sounds: active, all quadrants, Palpation: soft, in all quadrants, moderate abdominal tenderness, in the umbilical area, right upper quadrant and right lower quadrant, rebound tenderness, is not appreciated, involuntary guarding, is not appreciated. 13:05 Back: pain, is absent, ROM is normal. 13:05 Skin: no rash present. 13:05 Neuro: Orientation: to person, place \T\ time. Mentation: is normal, Cerebellar function: is grossly normal, Motor: moves all fours, strength is normal, Sensation: is normal. 13:15 ECG was reviewed by the Attending Physician. cp Vital Signs: 12:22 BP 95 / 65; Pulse 88; Resp 18; Temp 98.9(O); Pulse Ox 100% on R/A; Weight 79.38 kg; hj Height 5 ft. 7 in. (170.18 cm); Pain 9/10; 13:16 BP 117 / 68; Pulse 75; Resp 22; Pulse Ox 99% on R/A; Pain 8/10; em 14:13 BP 106 / 75; Pulse 78; Resp 20; Pulse Ox 100% on R/A; Pain 8/10; em 15:31 BP 125 / 75; Pulse 77; Resp 16; Pulse Ox 99% on R/A; Pain 7/10; em 16:30 BP 115 / 72; Pulse 71; Resp 18; Pulse Ox 99% on R/A; Pain 6/10; em 12:22 Body Mass Index 27.41 (79.38 kg, 170.18 cm) hj MDM: 12:32 Patient medically screened. cp 13:00 Differential diagnosis: nephrolithiasis, pyelonephritis, UTI, diverticulitis, cp pancreatitis, ruptured AAA, dissecting AAA, acute [place], bowel obstruction, colitis, acute [place]. 16:54 Data reviewed: vital signs, nurses notes, lab test result(s), EKG, radiologic studies, cp CT scan, plain films. 16:54 Test interpretation: by ED physician or midlevel provider: ECG, plain radiologic cp studies. Counseling: I had a detailed discussion with the patient and/or guardian regarding: the historical points, exam findings, and any diagnostic results supporting the discharge/admit diagnosis, lab results, radiology results, the need for outpatient follow up, a family practitioner, a cyber transport systems specialist, to return to the emergency department if symptoms worsen or persist or if there are any questions or concerns that arise at home. Response to treatment: the patient's symptoms have mildly improved after treatment, and as a result, I will discharge patient. ED course: VSS. EKG and troponin negative. CT abdomen/pelvis negative for acute findings. Discussed need for chronic pain management. 12/23 12:44 Order name: Basic Metabolic Panel; Complete Time: 13:30 cp 12/23 13:30 Interpretation: Normal except: NA 133; GLUC 499; BUN 22; GFR 65. cp 12/23 12:44 Order name: CBC with Diff; Complete Time: 13:12 cp 12/23 13:12 Interpretation: Normal except: RBC 4.00; HGB 12.2; HCT 35.7. cp 12/23 12:44 Order name: LFT's; Complete Time: 13:30 cp 12/23 16:53 Interpretation: AST 14; ALK 118; GLOB 3.6; Reviewed. cp 08/04 12:44 Order name: Magnesium; Complete Time: 13:30 cp 08/04 12:44 Order name: PT-INR; Complete Time: 13:12 cp 08/04 12:44 Order name: Troponin (emerg Dept Use Only); Complete Time: 13:30 cp /04 12:44 Order name: XRAY Chest (1 view); Complete Time: 16:29 cp /04 12:44 Order name: Lipase; Complete Time: 13:30 cp / 12:45 Order name: CT Abd/Pelvis - PO and IV Contrast; Complete Time: 16:29 cp 04 16:17 Order name: Urine Microscopic Only cp 12/23 16:43 Order name: Urine Dipstick--Ancillary (enter results) bd 12/23 12:44 Order name: EKG; Complete Time: 12:45 cp 04 12:44 Order name: Cardiac monitoring; Complete Time: 13:03 cp /04 12:44 Order name: EKG - Nurse/Tech; Complete Time: 13:03 cp 12/23 12:44 Order name: IV Saline Lock; Complete Time: 13:03 cp 04 12:44 Order name: Labs collected and sent; Complete Time: 13:03 cp 04 12:44 Order name: O2 Per Protocol; Complete Time: 13:03 cp 04 12:44 Order name: O2 Sat Monitoring; Complete Time: 13:03 cp /04 16:17 Order name: Urine Dipstick-Ancillary (obtain specimen); Complete Time: 17:27 cp /04 16:30 Order name: Bladder Scanner: pre and post void; Complete Time: 17:27 cp EC:15 Rate is 73 beats/min. Rhythm is regular, Paced. QRS interval is prolonged at 160 msec. cp QT interval is normal. Interpreted by me. Reviewed by me. Administered Medications: 12:55 Drug: Reglan 10 mg Route: IVP; Site: right antecubital; iw 13:15 Follow up: Response: No adverse reaction em 12:58 Drug: ProTONIX 40 mg Route: IVP; Site: right antecubital; iw 13:16 Follow up: Response: No adverse reaction em 13:00 Drug: NS 0.9% 1000 ml Route: IV; Rate: 1 bolus; Site: right antecubital; em 14:14 Follow up: IV Status: Completed infusion; IV Intake: 1000ml em 13:00 Drug: fentaNYL (PF) 25 mcg Route: IVP; Site: right antecubital; iw 13:16 Follow up: Response: No adverse reaction; Pain is unchanged, physician notified em 13:38 Drug: Insulin Regular Human 10 units {Co-Signature: em (Aj Rock BREAKER OPERATOR).} Route: IVP; iw Site: right antecubital; 15:05 Follow up: Response: No adverse reaction; Blood sugar is lowered em 13:40 Drug: fentaNYL (PF) 25 mcg Route: IVP; Site: right antecubital; em 14:06 Follow up: Response: No adverse reaction em 14:06 Drug: NS 0.9% 1000 ml Route: IV; Rate: 1 bolus; Site: right antecubital; em 15:24 Follow up: IV Status: Completed infusion; IV Intake: 1000ml em 15:20 Drug: TORadol 30 mg Route: IVP; Site: right antecubital; iw 17:27 Follow up: Response: No adverse reaction; Pain is decreased em 15:24 Drug: NS 0.9% 1000 ml Route: IV; Rate: 125 ml/hr; Site: right antecubital; em 17:25 Follow up: IV Status: Order to discontinue infusion; IV Intake: 200ml em 15:44 CANCELLED (Physician Discretion): Tetanus-Diphtheria Toxoid Adult 0.5 ml IM once cp Point of Care Testing: Blood Glucose: 14:55 Blood Glucose: 207 mg/dL; em Ranges: Critical Glucose Levels:Adult <50 mg/dl or >400 mg/dl <40 mg/dl or >180 mg/dl Disposition: 12/23/18 16:55 Discharged to Home. Impression: Unspecified abdominal pain, Other chest pain. - Condition is Stable. - Discharge Instructions: Abdominal Pain, Adult, Nonspecific Chest Pain, Aspirin and Your Heart. - Prescriptions for Bentyl 20 mg Oral Tablet - take 1 tablet by ORAL route every 6 hours As needed; 30 tablet. Zofran 4 mg Oral Tablet - take 1 tablet by ORAL route every 12 hours As needed; 20 tablet. - Medication Reconciliation Form, Thank You Letter, Antibiotic Education, Prescription Opioid Use form. - Follow up: Private Physician; When: 1 - 2 days; Reason: Recheck today's complaints. - Problem is an ongoing problem. - Symptoms have improved. Addendum: 12/25/2018 19:42 Co-signature as Attending Physician, Hawk Parrish MD. r n Signatures: Dispatcher [employer] Aj Rubi LVN BREAKER OPERATOR em Polly Leal RN Hawk Schumacher MD MD rn Joaquin, Henry, RN RN hj Page, Corey, PA PA cp Aj Rock BREAKER OPERATOR em Corrections: (The following items were deleted from the chart) 12/23 15:44 15:12 Tetanus-Diphtheria Toxoid Adult 0.5 ml IM once ordered. cp cp 15:44 15:12 Dressing - Wound ordered. cp cp 17:32 16:55 12/23/2018 16:55 Discharged to Home. Impression: Unspecified abdominal pain; em Other chest pain. Condition is Stable. Forms are Medication Reconciliation Form, Thank You Letter, Antibiotic Education, Prescription Opioid Use. Follow up: Private Physician; When: 1 - 2 days; Reason: Recheck today's complaints. Problem is an ongoing problem. Symptoms have improved. cp
[2018-12-23 17:30] LABS: Urine Bacteria <20 /HPF (NONE SEEN); Urine Culture Reflex Order NOT NEEDED; Urine RBC <5 /HPF (NONE SEEN)
[2018-12-23 18:06] VITALS: TEMP 98.9
[2018-12-23 18:10] VITALS: O2SAT 99
[2018-12-23 18:16] VITALS: BP 115/72
--- NOTE | 2018-12-24 07:45 | EKG ---
Test Date: 2018-12-23 Test Time: 13:10:35 Dental Practice Manager: SALVADOR MEASUREMENT RESULTS: Intervals: Rate: 73 FL: QRSD: 160 QT: 462 QTc: 508 Lawrence: P: FL: QRS: -68 T: 96 INTERPRETIVE STATEMENTS: Ventricular-paced rhythm Abnormal ECG Compared to ECG 12/07/2018 19:32:46 Sinus rhythm no longer present First degree AV block no longer present Myocardial infarct finding no longer present ST (T wave) deviation no longer present Possible ischemia no longer present Electronically Signed On 12-24-18 07:43:36 CDT by Igor Gordillo
== END 2018-12-23 17:32 | disposition home or self-care (01) ==
LOC: ER 12:15
DX: R10.9 Unspecified abdominal pain (principal); R07.89 Other chest pain; E11.9 Type 2 diabetes mellitus without complications; E78.00 Pure hypercholesterolemia, unspecified; E78.5 Hyperlipidemia, unspecified; I10 Essential (primary) hypertension; E03.9 Hypothyroidism, unspecified; I25.2 Old myocardial infarction; Z86.73 Personal history of transient ischemic attack (TIA), and cerebral infarction without residual deficits
CPT/HCPCS: 96361; 93005; 85025; 80048; 36415; 83735; 85610; 82962; 80076; 84484; 83690; 74177; 71045; 96375; 96374; 99284; Q9967; J2765; C9113; J3010; J7030 ×2; 81003; 81015

== ENCOUNTER 2019-01-01 18:02 | Emergency (ER) | payer OTHER ==
--- OUTSIDE RECORDS SUMMARY | 2019-01-01 18:05 | XMS REPORT ---
:1960 [facility] Address [address] [place] [address] Care Team Providers Name Role Phone TERA [...] Results Atomic Results Result Comments CTA BRAIN [facility] [address] [place], [place] [address] Patient Name: FAITH VANCE MR #: [id number] : 1960 Age/Sex: 57/M Req #: [id number] Adm Physician: TERA COX MD Ordered by: TERA COX MD Report #: [id number] Location: [facility] Room/Bed: [place] [address] Procedure: [id number] CT/CTA BRAIN Exam Date: 10/24/17 Exam Time: [...] PM Dictated By: ANA MARIA ARTEAGA MD 3020 Transcribed By: ANDREE on 10/24/17 1638 COPY TO: TERA COX MD CT BRAIN WO [place] [address] Patient Name: FAITH VANCE MR #: [id number] : 1960 Age/Sex: 57/M Req #: [id number] Adm Physician: Ordered by: ARLETH WAHL MD Report #: [id number] Location: Room/Bed: Procedure: [id number] CT/CT BRAIN WO Exam Date: 10/23/17 Exam [...] PM Dictated By: ANA MARIA ARTEAGA MD 3696 Transcribed By: ANDREE on 10/23/172 COPY TO: ARLETH WAHL MD CTA CHEST [place] [address] Patient Name: FAITH VANCE MR #: [id number] : 1960 Age/Sex: 57/M Req #: [id number] Adm Physician: Ordered by: ARLETH WAHL MD Report #: [id number] Location: ER Room/Bed: Procedure: [id number] CT/CTA CHEST Exam Date: 10/23/17 Exam Time: [...] reviewed and is below limits set by [facility]). FINDINGS: Lines and Tubes: Pacemaker with [...] COPY TO: ARLETH WAHL MD CHEST SINGLE [address] (PORTABLE) [place] [address] Patient Name: FAITH VANCE MR #: [id number] : 1960 Age/Sex: 57/M Req #: [id number] Adm Physician: Ordered by: ARLETH WAHL MD Report #: [id number] Location: ER Room/Bed: Procedure: [id number] DX/CHEST SINGLE (PORTABLE) Exam Date: 10/23/17 Exam [...] TO: ARLETH WAHL MD CT BRAIN WO [place] [id number] [place] [address] Patient Name: FAITH VANCE MR #: [id number] : 1960 Age/Sex: 56/M Req #: [id number] Adm Physician: Ordered by: JACQUELYN MONTES DE OCA MD Report #: [id number] Location: ER Room/Bed: Procedure: [id number] CT/CT BRAIN WO Exam Date: Exam Time: [...] MONTES DE OCA MD CT CERVICAL SPINE [place] [address] Patient Name: FAITH VANCE MR #: [id number] : 1960 Age/Sex: 56/M Req #: [id number] Adm Physician: Ordered by: JACQUELYN MONTES DE OCA MD Report #: [id number] Location: ER Room/Bed: Procedure: [id number] CT/CT CERVICAL SPINE WO Exam Date: Exam [...] JACQUELYN MONTES DE OCA MD CHEST SINGLE [address] (PORTABLE) [place] [address] Patient Name: FAITH VANCE MR #: [id number] : 1960 Age/Sex: 56/M Req #: [id number] Adm Physician: Ordered by: JACQUELYN MONTES DE OCA MD Report #: [id number] Location: ER Room/Bed: Procedure: [id number] DX/CHEST SINGLE (PORTABLE) Exam Date: 04/04/17 Exam [...] DE OCA MD HIP RIGHT 2-[address] (+/- PELVIS) [place] [address] Patient Name: FAITH VANCE MR #: [id number] : 1960 Age/Sex: 56/M Req #: [id number] Adm Physician: Ordered by: JACQUELYN MONTES DE OCA MD Report #: [id number] Location: ER Room/Bed: Procedure: [id number] DX/HIP RIGHT 2-3 VW (+/- PELVIS) Exam [...] TO: JACQUELYN MONTES DE OCA MD LUMBAR, [address] COMPLETE MIN 4VW [place] [address] Patient Name: FAITH VANCE MR #: [id number] : 1960 Age/Sex: 56/M Req #: [id number] Adm Physician: Ordered by: JACQUELYN MONTES DE OCA MD Report #: [id number] Location: ER Room/Bed: Procedure: [id number] DX/SP LUMBAR, COMPLETE MIN 4VW Exam Date: [...] JACQUELYN MONTES DE OCA MD US ABDOMEN [place] [address] Patient Name: FAITH VANCE MR #: [id number] : 1960 Age/Sex: 56/M Req #: [id number] [facility] Physician: NICHELLE PALACIOS MD Ordered by: SCOTT AMIN MD Report #: [id number] Location: [facility] Room/Bed: [place] [address] Procedure: [id number] US/US ABDOMEN COMPLETE Exam Date: 03/08/17 Exam [...] 03/08/17 1040 COPY TO: SCOTT AMIN MD [place] [address] Patient Name: FAITH VANCE MR #: [id number] : 1960 Age/Sex: 56/M Req #: [id number] Adm Physician: Ordered by: JACQUELYN MONTES DE OCA MD Report #: [id number] Location: ER Room/Bed: Procedure: [id number] DX/CHEST SINGLE (PORTABLE) Exam Date: 03/05/17 Exam [...]
[2019-01-01 18:39] LABS: Absolute Lymphocytes (CBC) 1.8 K/uL (0.7-4.9); Basophils % 0.8 % (0-1.3); Hematocrit 36.5 % (39.6-49.0); Lymphocytes % 32.7 % (15.3-44.8); RBC Red Blood Cell Count 4.11 M/uL (4.33-5.43)
[2019-01-01 18:41] LABS: Protime INR 1.04
--- NOTE | 2019-01-01 18:47 | RAD REPORT ---
EXAM DESCRIPTION: RAD - Chest Single View - 01/01/2019 6:38 pm CLINICAL HISTORY: Palpitations;Chest pain Chest pain. COMPARISON: <Comparisons> FINDINGS: Portable technique limits examination quality. The lungs are grossly clear. Postsurgical changes of a CABG are noted. No displaced fractures. IMPRESSION: No acute intrathoracic process suspected.
[2019-01-01] MEDS ORDERED: NA CHLORIDE 0.9% 1,000 ML ONE (19:15)
[2019-01-01] MEDS ORDERED: ONDANSETRON 4 MG/2 ML VIAL ONE (19:15)
[2019-01-01] MEDS ORDERED: MORPHINE 4 MG/ML SYR ONE (19:15)
[2019-01-01 19:18] LABS: ALT/SGPT 21 U/L (12-78); AST/SGOT 11 U/L (15-37); Albumin 3.5 g/dL (3.4-5.0); Alkaline Phosphatase 117 U/L (45-117); BUN Blood Urea Nitrogen 10 mg/dL (7-18); Bicarbonate 26 mmol/L (21-32); Bilirubin Direct 0.1 mg/dL (0-0.2); Bilirubin Total 0.4 mg/dL (0.2-1.0); Magnesium 1.9 mg/dL (1.8-2.4); NT PRO-BNP 505 pg/mL (<125); Potassium 3.9 mmol/L (3.5-5.1); Protein, Total 7.3 g/dL (6.4-8.2); Sodium Level 138 mmol/L (136-145); Troponin (Emerg Dept Use Only) < 0.02 ng/mL (0.0-0.045)
[2019-01-01 19:22] LABS: Glucose Level 410 mg/dL (74-106)
--- NOTE | 2019-01-01 19:28 | RAD REPORT ---
EXAM DESCRIPTION: CT - Stone Protocol - 01/01/2019 7:12 pm CLINICAL HISTORY: Flank pain. Flank pain;Abd pain COMPARISON: Abdomen Pelvis W Contrast dated 12/23/2018Abdomen Pelvis W Contrast dated 12/23/2018; Ab domen Pelvis W/Wo Contrast dated 12/18/2018 TECHNIQUE: Axial images were obtained without oral or IV contrast. Lack of contrast limits solid org an and vascular assessment. The [id number] spans the entirety of the system partially obscuring uppermost abdomen and lung bases. Coronal reformatted images were obtained and reviewed. All CT scans are performed using dose optimization technique as appropriate and may include automated exposure control or mA/KV adjustment according to patient size. FINDINGS: The lower lung heredia are clear. Cholecystectomy clips. Imaged portions of the liver and spleen show no suspicious findings on non-contrast imaging. The panc reas and adrenal glands are normal. No pathologic lymphadenopathy in the abdomen or pelvis. Punctate calculi are present in the left kidney without hydronephrosis. 25 mm cyst is present superio r pole right kidney, benign in appearance. No hydronephrosis. No bowel obstruction, free air, free fluid or abscess. Normal appendix noted.Large amount of stool is seen in the rectum. Postsurgical changes involve the lumbar spine. IMPRESSION: Punctate calculi are present left kidney without hydronephrosis. Moderate fecal retention in the rectum.
[2019-01-01] MEDS ORDERED: INSULIN -REGULAR HUMAN 50 UNIT/0.5 ML ML ONE (19:30)
--- NOTE | 2019-01-01 19:51 | ER ---
Nurse's Notes [facility] Name: Ernie Rooney Age: 58 yrs Sex: Male : 1960 Arrival Date: 01/01/2019 Time: 18:04 Bed 3 Private MD: Diagnosis: Abdominal tenderness;Type 2 diabetes mellitus;Constipation Presentation: 01/01 18:07 Presenting complaint: Patient states: I have been having chest pain and dizziness for la1 the last couple hours and my pacemaker has shocked me three times in the last hour. Transition of care: patient was not received from another setting of care. Onset of symptoms was January 01, 2019. Risk Assessment: Do you want to hurt yourself or someone else? Patient reports no desire to harm self or others. Initial Sepsis Screen: Does the patient meet any 2 criteria? No. Patient's initial sepsis screen is negative. Does the patient have a suspected source of infection? No. Patient's initial sepsis screen is negative. Care prior to arrival: None. 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 - Social history:: Smoking status: Patient/guardian denies using tobacco. - Ebola Screening: : No symptoms or risks identified at this time. - Family history:: not pertinent. Screenin:10 Abuse screen: Denies threats or abuse. Denies injuries from another. Nutritional ao screening: No deficits noted. Tuberculosis screening: No symptoms or risk factors identified. Fall Risk None identified. Assessment: 19:07 General: Appears in no apparent distress. comfortable, well groomed, well developed, ao well nourished, Behavior is calm, cooperative, appropriate for age. Pain: Complains of pain in right upper quadrant and posterior aspect of right lateral abdomen and anterior aspect of right lateral abdomen Pain does not radiate. Pain began 4 hours ago. Neuro: Level of Consciousness is awake, alert, obeys commands, Oriented to person, place, time, situation, Appropriate for age Moves all extremities. Full function Speech is normal. Cardiovascular: Capillary refill < 3 seconds Patient's skin is warm and dry. Cardiovascular: Reports chest pain. Respiratory: Airway is patent Trachea midline Respiratory effort is even, unlabored, Respiratory pattern is regular, symmetrical. GI: Abdomen is non-distended. : No signs and/or symptoms were reported regarding the genitourinary system. EENT: No signs and/or symptoms were reported regarding the EENT system. Derm: Skin is intact, Skin is pink, warm \T\ dry. normal, Skin temperature is warm. Musculoskeletal: Circulation, motion, and sensation intact. 20:10 Reassessment: No changes from previously documented assessment. Dr Cole notified of ao patient still in pain. No orders given. 20:49 Reassessment: Pt Dc home. Instructed to follow up with PCP and take medications as ao prescribed. Pt agree with POC. Vital Signs: 18:08 BP 105 / 69; Pulse 66; Resp 16; Temp 97.4; Pulse Ox 98% on R/A; Weight 81.65 kg; Height la1 5 ft. 7 in. (170.18 cm); 18:08 Body Mass Index 28.19 (81.65 kg, 170.18 cm) la1 ED Course: 18:04 Patient arrived in ED. as 18:08 Triage completed. la1 18:08 Arm band placed on right wrist. la1 18:10 Inserted saline lock: 20 gauge in right antecubital area, using aseptic technique. ss Blood collected. 18:22 Mustapha Cole MD is Attending Physician. caitlyn 18:29 Patient maintains SpO2 saturation greater than 95% on room air. ss 18:39 XRAY Chest (1 view) In Process Unspecified. EDMS 19:01 Casper Arias, RN is Primary Nurse. ao 19:06 Basic Metabolic Panel Sent. ao 19:10 Patient has correct armband on for positive identification. Fall risk band placed. ao Placed in gown. Bed in low position. Call light in reach. Side rails up X 1. monitor tech on. Pulse ox on. NIBP on. Sitter at bedside. 19:12 CT Stone Protocol In Process Unspecified. EDMS 19:27 Notified ED physician of a critical lab result(s). Glucose 410. ao 20:47 No provider procedures requiring assistance completed. IV discontinued, intact, ao bleeding controlled, No redness/swelling at site. Pressure dressing applied. Administered Medications: 19:21 Drug: morphine 4 mg {Note: Rass 0.} Route: IVP; Site: right antecubital; ao 20:03 Follow up: Response: No adverse reaction; Pain is unchanged, physician notified; RASS: ao Alert and Calm (0) 19:23 Drug: NS 0.9% 1000 ml Route: IV; Rate: 125 ml/hr; Site: right antecubital; ao 19:23 Drug: Zofran 4 mg Route: IVP; Site: right antecubital; ao 20:04 Follow up: Response: No adverse reaction ao 19:30 Drug: Insulin Regular Human 10 units {Co-Signature: [email or web address] (Zay Sarah RN).} Route: ao Sub-Q; Site: right upper arm; 20:46 Follow up: Response: No adverse reaction ao 19:34 Drug: Insulin Regular Human 10 units {Co-Signature: rr5 (Zay Sarah RN).} Route: ao IVP; Site: right antecubital; 20:47 Follow up: Response: No adverse reaction ao 20:35 Not Given (Patient Refused): Dulcolax Suppository 10 mg CA once ao 20:46 Not Given (Patient Refused): Lactulose 30 grams 45 ml PO once ao Outcome: 19:50 Discharge ordered by MD. brady 20:47 Discharged to home ambulatory. ao 20:47 Condition: stable 20:47 Discharge instructions given to patient, Instructed on discharge instructions, follow up and referral plans. Demonstrated understanding of instructions, follow-up care, medications, Prescriptions given X 4. 20:49 Patient left the ED. ao Signatures: Dispatcher [employer] Mustapha Arredondo MD MD cha Martinez, Amelia as Smirch, Shelby, RN RN ss Attema, Lee, RN RN la1 Casper Arias RN RN ao Zay Sarah RN [email or web address]
--- NOTE | 2019-01-01 19:52 | EDPHYS ---
Physician Documentation [facility] Name: Ernie Rooney Age: 58 yrs Sex: Male : 1960 Arrival Date: 01/01/2019 Time: 18:04 Bed 3 Private MD: ED Physician Mustapha Cole HPI: 01/01 18:57 This 58 yrs old Male presents to ER via Wheelchair with complaints of Chest caitlyn Pain. 18:57 This 58 yrs old Male presents to ER via Wheelchair with complaints of Chest caitlyn Pain. 18:58 The patient presents with abdominal pain in the upper abdomen, in the right upper caitlyn quadrant. Onset: The symptoms/episode began/occurred 2 day(s) ago. The symptoms radiate to the right flank. Associated signs and symptoms: none. The symptoms are described as crampy, sharp. Modifying factors: The symptoms are alleviated by remaining still, the symptoms are aggravated by movement, pressure, touching the area, walking. Severity of pain: At its worst the pain was moderate severe in the emergency department the pain is unchanged. The patient has experienced similar episodes in the past, multiple times. 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 - Social history:: Smoking status: Patient/guardian denies using tobacco. - Ebola Screening: : No symptoms or risks identified at this time. - Family history:: not pertinent. ROS: 18:58 Constitutional: Negative for fever, chills, and weight loss, Eyes: Negative for injury, caitlyn pain, redness, and discharge, ENT: Negative for injury, pain, and discharge, Neck: Negative for injury, pain, and swelling, Cardiovascular: Negative for chest pain, palpitations, and edema, Respiratory: Negative for shortness of breath, cough, wheezing, and pleuritic chest pain, Back: Negative for injury and pain, : Negative for injury, bleeding, discharge, and swelling, MS/Extremity: Negative for injury and deformity, Skin: Negative for injury, rash, and discoloration, Neuro: Negative for headache, weakness, numbness, tingling, and seizure, Psych: Negative for depression, anxiety, suicide ideation, homicidal ideation, and hallucinations, Allergy/Immunology: Negative for hives, rash, and allergies, Endocrine: Negative for neck swelling, polydipsia, polyuria, polyphagia, and marked weight changes, Hematologic/Lymphatic: Negative for swollen nodes, abnormal bleeding, and unusual bruising. 18:58 Abdomen/GI: Positive for abdominal pain, of the anterior aspect of right lateral abdomen, posterior aspect of right lateral abdomen and right upper quadrant. Exam: 18:58 Constitutional: This is a well developed, well nourished patient who is awake, alert, caitlyn and in no acute distress. Head/Face: Normocephalic, atraumatic. Eyes: Pupils equal round and reactive to light, extra-ocular motions intact. Lids and lashes normal. Conjunctiva and sclera are non-icteric and not injected. Cornea within normal limits. Periorbital areas with no swelling, redness, or edema. ENT: Nares patent. No nasal discharge, no septal abnormalities noted. Tympanic membranes are normal and external auditory canals are clear. Oropharynx with no redness, swelling, or masses, exudates, or evidence of obstruction, uvula midline. Mucous membranes moist. Neck: Trachea midline, no thyromegaly or masses palpated, and no cervical lymphadenopathy. Supple, full range of motion without nuchal rigidity, or vertebral point tenderness. No Meningismus. Chest/axilla: Normal chest wall appearance and motion. Nontender with no deformity. No lesions are appreciated. Cardiovascular: Regular rate and rhythm with a normal S1 and S2. No gallops, murmurs, or rubs. Normal PMI, no JVD. No pulse deficits. Respiratory: Lungs have equal breath sounds bilaterally, clear to auscultation and percussion. No rales, rhonchi or wheezes noted. No increased work of breathing, no retractions or nasal flaring. Back: No spinal tenderness. No costovertebral tenderness. Full range of motion. Male : Normal genitalia with no discharge or lesions. Skin: Warm, dry with normal turgor. Normal color with no rashes, no lesions, and no evidence of cellulitis. MS/ Extremity: Pulses equal, no cyanosis. Neurovascular intact. Full, normal range of motion. Neuro: Awake and alert, GCS 15, oriented to person, place, time, and situation. Cranial nerves II-XII grossly intact. Motor strength 5/5 in all extremities. Sensory grossly intact. Cerebellar exam normal. Normal gait. Psych: Awake, alert, with orientation to person, place and time. Behavior, mood, and affect are within normal limits. 18:58 Abdomen/GI: Inspection: distension, Bowel sounds: normal, Palpation: mild abdominal tenderness, in the anterior aspect of right lateral abdomen, posterior aspect of right lateral abdomen and right upper quadrant, moderate abdominal tenderness. Vital Signs: 18:08 BP 105 / 69; Pulse 66; Resp 16; Temp 97.4; Pulse Ox 98% on R/A; Weight 81.65 kg; Height la1 5 ft. 7 in. (170.18 cm); 18:08 Body Mass Index 28.19 (81.65 kg, 170.18 cm) la1 MDM: 18:22 Patient medically screened. [facility] 19:00 Data reviewed: vital signs, nurses notes, lab test result(s), EKG, radiologic studies, [facility] CT scan, plain films. 01/01 18:18 Order name: Basic Metabolic Panel 01/01 18:18 Order name: CBC with Diff; Complete Time: 19:00 01/01 18:18 Order name: LFT's; Complete Time: 19:25 01/01 18:18 Order name: Magnesium; Complete Time: 19:25 01/01 18:18 Order name: NT PRO-BNP; Complete Time: 19:25 01/01 18:18 Order name: PT-INR; Complete Time: 19:00 01/01 18:18 Order name: Troponin (emerg Dept Use Only); Complete Time: 19:25 01/01 18:18 Order name: XRAY Chest (1 view); Complete Time: 19:00 01/01 18:20 Order name: Basic Metabolic Panel; Complete Time: 19:25 EDMS 01/01 18:57 Order name: Lipase [facility] 01/01 19:00 Order name: CT Stone Protocol; Complete Time: 19:47 [facility] 01/01 20:01 Order name: Urine Dipstick--Ancillary (enter results) ag4 01/01 18:18 Order name: EKG; Complete Time: 18:20 01/01 18:18 Order name: Cardiac monitoring; Complete Time: 18:30 rn 01/01 18:18 Order name: EKG - Nurse/Tech; Complete Time: 18:30 rn 01/01 18:18 Order name: IV Saline Lock; Complete Time: 18:30 rn 01/01 18:18 Order name: Labs collected and sent; Complete Time: 18:30 rn 01/01 18:18 Order name: O2 Per Protocol; Complete Time: 18:30 rn 01/01 18:18 Order name: O2 Sat Monitoring; Complete Time: 18:30 rn 01/01 18:57 Order name: Urine Dipstick-Ancillary (obtain specimen); Complete Time: 20:02 caitlyn Administered Medications: 19:21 Drug: morphine 4 mg {Note: Rass 0.} Route: IVP; Site: right antecubital; ao 20:03 Follow up: Response: No adverse reaction; Pain is unchanged, physician notified; RASS: ao Alert and Calm (0) 19:23 Drug: NS 0.9% 1000 ml Route: IV; Rate: 125 ml/hr; Site: right antecubital; ao 19:23 Drug: Zofran 4 mg Route: IVP; Site: right antecubital; ao 20:04 Follow up: Response: No adverse reaction ao 19:30 Drug: Insulin Regular Human 10 units {Co-Signature: [email or web address] (Zay Sarah RN).} Route: ao Sub-Q; Site: right upper arm; 20:46 Follow up: Response: No adverse reaction ao 19:34 Drug: Insulin Regular Human 10 units {Co-Signature: [email or web address] (Zay Sarah RN).} Route: ao IVP; Site: right antecubital; 20:47 Follow up: Response: No adverse reaction ao 20:35 Not Given (Patient Refused): Dulcolax Suppository 10 mg MN once ao 20:46 Not Given (Patient Refused): Lactulose 30 grams 45 ml PO once ao Disposition: 01/01/19 19:50 Discharged to Home. Impression: Abdominal tenderness, Type 2 diabetes mellitus, Constipation. - Condition is Stable. - Discharge Instructions: Abdominal Pain, Adult, Constipation, Adult, Type 2 Diabetes Mellitus, Diagnosis, Adult, Constipation, Adult, Lnjo-mc-Pswc, Abdominal Pain, Adult, Mrpb-sg-Yelp, Type 2 Diabetes Mellitus, Diagnosis, Adult, Eate-ff-Ikfg. - Prescriptions for Bentyl 20 mg Oral Tablet - take 1 tablet by ORAL route every 6 hours As needed; 20 tablet. Pepcid 20 mg Oral Tablet - take 1 tablet by ORAL route every 12 hours for 10 days; 20 tablet. Dulcolax 10 mg Rectal Suppository - insert 1 suppository by RECTAL route every 12 hours As needed; 10 suppository. Miralax 17 gram/dose Oral - take 1 packet by ORAL route every 12 hours dilute powder in 8 ounces of water or juice; 28 packet. - Medication Reconciliation Form, Thank You Letter, Antibiotic Education, Prescription Opioid Use form. - Follow up: Private Physician; When: 2 - 3 days; Reason: Recheck today's complaints, Continuance of care, Re-evaluation by your physician. - Problem is new. - Symptoms have improved. Signatures: Dispatcher [employer] EDMustapha Duggan MD MD cha Nieto, Roman, MD MD rn Attema, Lee RN RN la1 Casper Arias RN RN ao Zay Sarah RN [email or web address] Corrections: (The following items were deleted from the chart) 20:49 19:50 01/01/2019 19:50 Discharged to Home. Impression: Abdominal tenderness; Type 2 ao diabetes mellitus; Constipation. Condition is Stable. Forms are Medication Reconciliation Form, Thank You Letter, Antibiotic Education, Prescription Opioid Use. Follow up: Private Physician; When: 2 - 3 days; Reason: Recheck today's complaints, Continuance of care, Re-evaluation by your physician. Problem is new. Symptoms have improved. caitlyn
[2019-01-01 20:08] LABS: Urine Blood NEGATIVE (NEG); Urine Glucose 2+ (NEG); Urine Protein NEGATIVE (NEG)
[2019-01-01] MEDS ORDERED: LACTULOSE 20 GM/30 ML UCUP ONE (20:36)
[2019-01-01 22:08] VITALS: BP 105/69; TEMP 97.4; O2SAT 98
--- NOTE | 2019-01-02 09:50 | EKG ---
Test Date: 2019-01-01 Test Time: 18:16:08 Oncology Admin: MEASUREMENT RESULTS: Intervals: Rate: 68 IN: 340 QRSD: 148 QT: 476 QTc: 506 [place]: P: 21 IN: 340 QRS: -65 T: 80 INTERPRETIVE STATEMENTS: Atrial-sensed ventricular-paced rhythm with long AV delay Abnormal ECG Compared to ECG 12/23/2018 13:10:35 no significant change from previous ECG Electronically Signed On 01-02-19 09:49:22 CDT by Igor Gordillo
== END 2019-01-01 20:49 | disposition home or self-care (01) ==
LOC: ER 18:02
DX: K59.00 Constipation, unspecified (principal); E11.9 Type 2 diabetes mellitus without complications; I10 Essential (primary) hypertension
CPT/HCPCS: 93005; 85025; 80048; 36415; 83735; 85610; 80076; 81003; 84484; 83690; 83880; 76377; 74176; 71045; 96375; 96372; 96374; 99285; J7030; J2405

== ENCOUNTER 2019-03-02 23:47 | Emergency (ER) | payer OTHER ==
[2019-03-03] MEDS ORDERED: NA CHLORIDE 0.9% 1,000 ML ONE ×3 (00:06→02:19)
[2019-03-03 00:28] LABS: Absolute Lymphocytes (CBC) 1.8 K/uL (0.7-4.9); Basophils % 0.3 % (0-1.3); Hematocrit 31.4 % (39.6-49.0); Lymphocytes % 29.6 % (15.3-44.8); MPV 8.7 fL (7.6-11.3); RBC Red Blood Cell Count 3.52 M/uL (4.33-5.43)
[2019-03-03 00:38] LABS: Albumin 3.6 g/dL (3.4-5.0); Bilirubin Direct 0.1 mg/dL (0-0.2); Bilirubin Total 0.4 mg/dL (0.2-1.0); Potassium 3.7 mmol/L (3.5-5.1); Protein, Total 6.9 g/dL (6.4-8.2)
[2019-03-03] MEDS ORDERED: FENTANYL CITR 100 MCG/2 ML ONE (00:55)
[2019-03-03] MEDS ORDERED: ONDANSETRON 4 MG/2 ML VIAL ONE (00:55)
[2019-03-03 01:20] LABS: Barbiturates NEGATIVE (NEGATIVE); Benzodiazepines NEGATIVE (NEGATIVE); Cocaine NEGATIVE (NEGATIVE); METHAMPHETAM NEGATIVE (NEGATIVE); Methadone NEGATIVE (NEGATIVE); Opiates NEGATIVE (NEGATIVE); Phencyclidine NEGATIVE (NEGATIVE); THC Cannibis NEGATIVE (NEGATIVE)
--- NOTE | 2019-03-03 03:12 | ER ---
Nurse's Notes [facility] Name: Ernie Rooney Age: 58 yrs Sex: Male : 1960 Arrival Date: 03/02/2019 Time: 23:56 Bed 8 Private MD: Diagnosis: Unspecified abdominal pain;Dehydration;Hypotension Presentation: 03/02 23:45 Presenting complaint: EMS states: "We were toned for severe right upper quadrant cc3 abdominal pain radiating to right side of his back. Patient complains of headache as well. En route the blood pressure reading is 67/40 mmHg and always on the low side, blood sugar of 233 mg/dL. Patient said his baseline blood pressure is always low. Patient said he is following up with Dr. 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 Patient denies nausea, vomiting, nor diarrhea; patient said he's taking laxatives and passes normal looking soft stool and no blood. Transition of care: patient was not received from another setting of care. Onset of symptoms was March 03, 2019. Risk Assessment: Do you want to hurt yourself or someone else? Patient reports no desire to harm self or others. Initial Sepsis Screen: Does the patient meet any 2 criteria? No. Patient's initial sepsis screen is negative. Does the patient have a suspected source of infection? Yes: Acute abdominal pain. Care prior to arrival: None. 23:45 Method Of Arrival: EMS: [facility] cc3 23:45 Acuity: TONE 2 cc3 Triage Assessment: 23:45 General: Appears in no apparent distress. uncomfortable, Behavior is cooperative, cc3 anxious. Pain: Complains of pain in abdomen, right upper abdomen, right lower abdomen Pain currently is 10 out of 10 on a pain scale. Quality of pain is described as aching. EENT: No signs and/or symptoms were reported regarding the EENT system. Neuro: Level of Consciousness is awake, alert, obeys commands, Oriented to person, place, time, situation, Appropriate for age. Cardiovascular: Denies chest pain, Heart tones S1 S2 present Capillary refill in bilateral fingers Patient's skin is warm and dry. Respiratory: Airway is patent Respiratory effort is even, unlabored, Respiratory pattern is regular, symmetrical. GI: Abdomen is round non-distended, Bowel sounds present in left upper abdomen, left lower abdomen diminished in right lower quadrant, right upper Abd is soft X 4 quads Abdomen is tender to palpation in right lower quadrant, right upper quadrant. : No signs and/or symptoms were reported regarding the genitourinary system. Derm: Skin is intact, is healthy with good turgor, Skin is pink, warm \\T\\ dry. normal. Musculoskeletal: Range of motion: limited in left leg. 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 - Social history:: Smoking status: Patient/guardian denies using tobacco, Smoking status: Patient/guardian denies using tobacco, the patient reports quitting approximately 6 years ago. - Ebola Screening: : No symptoms or risks identified at this time No symptoms or risks identified at this time. Screenin:11 Abuse screen: Denies threats or abuse. Nutritional screening: No deficits noted. ea Tuberculosis screening: No symptoms or risk factors identified. Fall Risk IV access (20 points). Assessment: 00:16 General: Appears uncomfortable, Behavior is calm, cooperative, appropriate for age. ea Pain: Complains of pain in right lower quadrant. Neuro: Level of Consciousness is awake, alert, obeys commands, Oriented to person, place, time, situation. Cardiovascular: Patient's skin is warm and dry. Respiratory: Airway is patent Respiratory effort is even, unlabored, Respiratory pattern is regular, symmetrical. GI: Abdomen is non-distended. Derm: Skin is pink, warm \\T\\ dry. 01:45 Reassessment: Patient and/or family updated on plan of care and expected duration. Pain ea level reassessed. Patient is alert, oriented x 3, equal unlabored respirations, skin warm/dry/pink. pt taken to CT. 02:04 Reassessment: Patient and/or family updated on plan of care and expected duration. Pain ea level reassessed. Patient is alert, oriented x 3, equal unlabored respirations, skin warm/dry/pink. Awaiting on CT results. 03:55 Reassessment: Patient appears in no apparent distress at this time. Patient and/or cc3 family updated on plan of care and expected duration. Pain level reassessed. Patient is alert, oriented x 3, equal unlabored respirations, skin warm/dry/pink. YAYA Ponce discharged the patient home with prescription given. IV cannula removed, patient requested for a taxi for his home transport, house nursing supervisor fertilizer processing Evelin informed and she agreed to call a taxi for the patient. ED cryptographic clerk Yoselyn called a taxi for the patient. Patient left ER vitally stable and ambulatory with his walker and will wait in the lobby for the taxi to arrive. No valuables left in the patient's room. Patient denies pain at this time. Patient states feeling better. Patient states symptoms have improved. Vital Signs: 03/02 23:45 BP 89 / 65; Pulse 80; Resp 20 S; Temp 98(O); Pulse Ox 99% on R/A; Weight 78.02 kg (R); cc3 Height 5 ft. 7 in. (170.18 cm) (R); Pain 10/10; 03/03 00:50 BP 100 / 61; Pulse 72; Resp 20 S; Pulse Ox 100% on R/A; cc3 01:30 BP 104 / 62; Pulse 70; Resp 18; Pulse Ox 99% on R/A; ea 02:01 BP 96 / 58; Pulse 70; Resp 18; Pulse Ox 100% ; ea 03:40 BP 101 / 61; Pulse 73; Resp 18 S; Pulse Ox 100% on R/A; Pain 0/10; cc3 03/02 23:45 Body Mass Index 26.94 (78.02 kg, 170.18 cm) cc3 ED Course: 03/02 23:56 Patient arrived in ED. cc3 03/03 00:00 Inserted saline lock: 20 gauge in left forearm, using aseptic technique. ea 00:04 Dilip Ponce NP is PHCP. pm1 00:04 Juwan Lux MD is Attending Physician. pm1 00:09 Triage completed. cc3 00:16 Arm band placed on right wrist. Patient placed in an exam room, on a stretcher, on ea pulse oximetry. 00:17 Patient has correct armband on for positive identification. Placed in gown. Bed in low ea position. Call light in reach. Side rails up X2. 00:20 Jamila Sebastian, RN is Primary Nurse. ea 02:08 CT Abd/Pelvis - PO and IV Contrast In Process Unspecified. EDMS 03:55 No provider procedures requiring assistance completed. IV discontinued, intact, cc3 bleeding controlled, No redness/swelling at site. Pressure dressing applied. Administered Medications: 00:13 Drug: NS 0.9% 1000 ml Route: IV; Rate: 1 bolus; Site: left forearm; ea 01:15 Follow up: Response: No adverse reaction; IV Status: Completed infusion; IV Intake: cc3 1000ml 01:04 Drug: NS 0.9% 1000 ml Route: IV; Rate: 1000 ml; Site: left forearm; ea 02:00 Follow up: Response: No adverse reaction; IV Status: Completed infusion; IV Intake: cc3 1000ml 01:04 Drug: fentaNYL (PF) 25 mcg {Note: RASS 0.} Route: IVP; Site: left forearm; ea 01:30 Follow up: Response: No adverse reaction; Pain is decreased; RASS: Alert and Calm (0) cc3 01:04 Drug: Zofran 4 mg Route: IVP; Site: left forearm; ea 01:30 Follow up: Response: No adverse reaction; Nausea is decreased cc3 02:23 Drug: NS 0.9% 1000 ml Route: IV; Rate: 125 ml/hr; Site: left forearm; cc3 03:40 Follow up: Response: No adverse reaction; IV Status: Order to discontinue infusion; IV cc3 Intake: 125ml 03:40 Follow up: patient discharged home cc3 Intake: 01:15 IV: 1000ml; Total: 1000ml. cc3 02:00 IV: 1000ml; Total: 2000ml. cc3 03:40 IV: 125ml; Total: 2125ml. cc3 Outcome: 03:11 Discharge ordered by . pm1 03:55 Discharged to home ambulatory, with his walker cc3 03:55 Condition: stable 03:55 Discharge instructions given to patient, Instructed on discharge instructions, follow up and referral plans. medication usage, Demonstrated understanding of instructions, follow-up care, medications, Prescriptions given X 1. 04:03 Patient left the ED. cc3 Signatures: Dispatcher Diffon Dilip Razo, FARM TRACTOR MECHANIC FARM TRACTOR MECHANIC pm1 Jamila Sebastian, RN RN Sherrie Slater cc3 Corrections: (The following items were deleted from the chart) 01:04 01:04 fentaNYL (PF) 25 mcg IVP in left forearm livia bhakta
--- NOTE | 2019-03-03 03:13 | EDPHYS ---
Physician Documentation [facility] Name: Ernie Rooney Age: 58 yrs Sex: Male : 1960 Arrival Date: 03/02/2019 Time: 23:56 Bed 8 Private MD: ED Physician Juwan Lux HPI: 03/03 02:18 This 58 yrs old Male presents to ER via EMS with complaints of Abdominal Pain. pm1 02:18 The patient presents with abdominal pain in the right upper quadrant. Onset: The pm1 symptoms/episode began/occurred 7 month(s) ago. The symptoms radiate to the right flank. Associated signs and symptoms: Pertinent positives: Pertinent negatives: nausea, vomiting, and diarrhea, chest pain, constipation, dysuria, fever, shortness of breath. Severity of pain: in the emergency department the pain is actually worse. The patient has experienced similar episodes in the past, chronically. The patient has not recently seen a physician. Patient reports decreased PO intake due to abdominal pain. 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 - Social history:: Smoking status: Patient/guardian denies using tobacco, Smoking status: Patient/guardian denies using tobacco, the patient reports quitting approximately 6 years ago. - Ebola Screening: : No symptoms or risks identified at this time No symptoms or risks identified at this time. ROS: 02:18 Constitutional: Negative for fever, chills, and weight loss, Eyes: Negative for injury, pm1 pain, redness, and discharge, ENT: Negative for injury, pain, and discharge, Neck: Negative for injury, pain, and swelling, Cardiovascular: Negative for chest pain, palpitations, and edema, Respiratory: Negative for shortness of breath, cough, wheezing, and pleuritic chest pain. 02:18 : Negative for injury, bleeding, discharge, and swelling, MS/Extremity: Negative for injury and deformity, Skin: Negative for injury, rash, and discoloration, Neuro: Negative for headache, weakness, numbness, tingling, and seizure. 02:18 Abdomen/GI: Positive for abdominal pain, of the right upper quadrant, Negative for nausea, vomiting, and diarrhea, constipation. 02:18 Back: Positive for flank pain, on the right. Exam: 02:18 Constitutional: This is a well developed, well nourished patient who is awake, alert, pm1 and in no acute distress. Head/Face: Normocephalic, atraumatic. Neck: Trachea midline, no thyromegaly or masses palpated, and no cervical lymphadenopathy. Supple, full range of motion without nuchal rigidity, or vertebral point tenderness. No Meningismus. Chest/axilla: Normal chest wall appearance and motion. Nontender with no deformity. No lesions are appreciated. Cardiovascular: Regular rate and rhythm with a normal S1 and S2. No gallops, murmurs, or rubs. Normal PMI, no JVD. No pulse deficits. Respiratory: Lungs have equal breath sounds bilaterally, clear to auscultation and percussion. No rales, rhonchi or wheezes noted. No increased work of breathing, no retractions or nasal flaring. 02:18 Back: No spinal tenderness. No costovertebral tenderness. Full range of motion. Skin: Warm, dry with normal turgor. Normal color with no rashes, no lesions, and no evidence of cellulitis. MS/ Extremity: Pulses equal, no cyanosis. Neurovascular intact. Full, normal range of motion. 02:18 Abdomen/GI: Inspection: abdomen appears normal, Bowel sounds: normal, Palpation: mild abdominal tenderness, in the right upper quadrant, mass, is not appreciated, rebound tenderness, is not appreciated. 02:18 Neuro: Orientation: is normal, Motor: is normal, moves all fours, Sensation: is normal, no obvious gross deficits. Vital Signs: 03/02 23:45 BP 89 / 65; Pulse 80; Resp 20 S; Temp 98(O); Pulse Ox 99% on R/A; Weight 78.02 kg (R); cc3 Height 5 ft. 7 in. (170.18 cm) (R); Pain 10/; 03/03 00:50 BP 100 / 61; Pulse 72; Resp 20 S; Pulse Ox 100% on R/A; cc3 01:30 BP 104 / 62; Pulse 70; Resp 18; Pulse Ox 99% on R/A; ea 02:01 BP 96 / 58; Pulse 70; Resp 18; Pulse Ox 100% ; ea 03:40 BP 101 / 61; Pulse 73; Resp 18 S; Pulse Ox 100% on R/A; Pain 0/10; cc3 10 23:45 Body Mass Index 26.94 (78.02 kg, 170.18 cm) cc3 MDM: 00:05 Patient medically screened. pm1 03:11 Data reviewed: vital signs. Data interpreted: Pulse oximetry: on room air is 100 %. pm1 Interpretation: normal. Counseling: I had a detailed discussion with the patient and/or guardian regarding: the historical points, exam findings, and any diagnostic results supporting the discharge/admit diagnosis, lab results, radiology results, the need for outpatient follow up, to return to the emergency department if symptoms worsen or persist or if there are any questions or concerns that arise at home. 03/03 00:12 Order name: Basic Metabolic Panel; Complete Time: 00:41 pm1 03/03 00:12 Order name: CBC with Diff; Complete Time: 00: pm1 03/03 00:12 Order name: Creatinine for Radiology; Complete Time: 00:41 pm1 03/03 00:12 Order name: Hepatic Function; Complete Time: 00:41 pm1 03/03 00:12 Order name: Lipase; Complete Time: 00:41 pm1 03/03 00:14 Order name: UDS; Complete Time: 01:22 ea 03/03 00:12 Order name: IV Saline Lock; Complete Time: 00:13 pm1 03/03 00:12 Order name: Labs collected and sent; Complete Time: 00: pm1 03/03 00:12 Order name: CT Abd/Pelvis - PO and IV Contrast pm1 Administered Medications: 00:13 Drug: NS 0.9% 1000 ml Route: IV; Rate: 1 bolus; Site: left forearm; ea 01:15 Follow up: Response: No adverse reaction; IV Status: Completed infusion; IV Intake: cc3 1000ml 01:04 Drug: NS 0.9% 1000 ml Route: IV; Rate: 1000 ml; Site: left forearm; ea 02:00 Follow up: Response: No adverse reaction; IV Status: Completed infusion; IV Intake: cc3 1000ml 01:04 Drug: fentaNYL (PF) 25 mcg {Note: RASS 0.} Route: IVP; Site: left forearm; ea 01:30 Follow up: Response: No adverse reaction; Pain is decreased; RASS: Alert and Calm (0) cc3 01:04 Drug: Zofran 4 mg Route: IVP; Site: left forearm; ea 01:30 Follow up: Response: No adverse reaction; Nausea is decreased cc3 02:23 Drug: NS 0.9% 1000 ml Route: IV; Rate: 125 ml/hr; Site: left forearm; cc3 03:40 Follow up: Response: No adverse reaction; IV Status: Order to discontinue infusion; IV cc3 Intake: 125ml 03:40 Follow up: patient discharged home cc3 Disposition: 22:50 Co-signature as Attending Physician, Juwan Lux MD. Disposition: 03/03/19 03:11 Discharged to Home. Impression: Unspecified abdominal pain, Dehydration, Hypotension. - Condition is Stable. - Discharge Instructions: Abdominal Pain, Adult, Dehydration, Adult, Rehydration, Adult. - Prescriptions for Bentyl 20 mg Oral Tablet - take 1 tablet by ORAL route every 6 hours As needed; 20 tablet. - Medication Reconciliation Form, Thank You Letter, Antibiotic Education, Prescription Opioid Use form. - Follow up: Emergency Department; When: As needed; Reason: Worsening of condition. Follow up: Private Physician; When: 2 - 3 days; Reason: Recheck today's complaints, Continuance of care, Re-evaluation by your physician. - Problem is new. - Symptoms have improved. Signatures: Dispatcher [employer] EDMS Dilip Ponce NP STEP DOWN NURSE pm1 Jamila Sebastian, Juwan Bach RN, ea, MD MD Sherrie Trevizo cc3 Corrections: (The following items were deleted from the chart) 03:12 03:11 03/03/2019 03:11 Discharged to Home. Impression: Unspecified abdominal pain; pm1 Dehydration. Condition is Stable. Forms are Medication Reconciliation Form, Thank You Letter, Antibiotic Education, Prescription Opioid Use. Follow up: Emergency Department; When: As needed; Reason: Worsening of condition. Follow up: Private Physician; When: 2 - 3 days; Reason: Recheck today's complaints, Continuance of care, Re-evaluation by your physician. Problem is new. Symptoms have improved. pm1 04:03 03:12 03/03/2019 03:11 Discharged to Home. Impression: Unspecified abdominal pain; cc3 Dehydration; Hypotension. Condition is Stable. Forms are Medication Reconciliation Form, Thank You Letter, Antibiotic Education, Prescription Opioid Use. Follow up: Emergency Department; When: As needed; Reason: Worsening of condition. Follow up: Private Physician; When: 2 - 3 days; Reason: Recheck today's complaints, Continuance of care, Re-evaluation by your physician. Problem is new. Symptoms have improved. pm1
[2019-03-03 04:15] VITALS: BP 96/58; O2SAT 100
--- NOTE | 2019-03-04 10:37 | RAD REPORT ---
EXAM DESCRIPTION: CT - Abdomen Pelvis W Contrast - 03/03/2019 6:36 am COMPARISON: CT abdomen pelvis December 18, 2018 CLINICAL HISTORY: Abdominal pain TECHNIQUE: Multiple helical axial images were obtained through the abdomen and pelvis using intraven ous contrast. Coronal and sagittal reformatted images were obtained. All CT scans at this facility use dose modulation, iterative reconstruction, and/or weight-based dosi ng when appropriate to reduce radiation dose to as low as reasonably achievable. FINDINGS: Lung bases: Mild right basilar atelectasis is present. Liver: Homogenous attenuation is noted. Gallbladder/biliary: Cholecystectomy changes are present. There is prominence of the common bile duct measuring 1.2 cm in width which is nonspecific in the setting of prior cholecystectomy and unchanged . Pancreas: Unremarkable. No evidence of ductal enlargement. Spleen: Appears unremarkable. No splenomegaly. Adrenals: Unremarkable. Kidneys and ureters: No evidence of hydronephrosis. Normal enhancement. A 2.7 cm simple appearing c yst in the midpole of the right kidney is present. A subcentimeter hypodensity in the midpole of the left kidney is present too small to characterize. There is a 1 mm stone in the midpole of the left ki dney. Bladder: Unremarkable. Pelvic organs: Unremarkable. Bowel: No evidence of bowel obstruction. No bowel wall thickening. Appendix appears unremarkable. Vasculature: Unremarkable. Peritoneum: No free air. No significant free fluid. Lymph nodes: Unremarkable. Soft tissues: A tiny fat-containing umbilical hernia is present. Bones: Degenerative changes of the spine noted. There are postoperative changes of laminectomy at L4- 5. Left-sided posterior erika and pedicle screws from L4 through S1 noted. Several bridging thoracic sp ine osteophytes are present. IMPRESSION: 1. No evidence for an acute process within the abdomen or pelvis. 2. Incidental findings as above. Electronically signed by: Jameel Euceda MD 03/03/2019 2:53 AM CDT Due to temporary technical issues with the PACS/Fluency reporting system, reports are being signed by the in house radiologist as a courtesy to ensure prompt reporting. The interpreting radiologist is f ully responsible for the content of the report.
== END 2019-03-03 04:03 | disposition home or self-care (01) ==
LOC: ER 23:47
DX: R10.11 Right upper quadrant pain (principal); E86.0 Dehydration; I95.9 Hypotension, unspecified
CPT/HCPCS: 96361; 85025; 80048; 36415; 80076; 80307 ×8; 83690; 74177; 96375; 96374; 99284; Q9967; J3010; J7030 ×3; J2405

== ENCOUNTER 2019-05-11 00:35 | Observation (INO) | payer OTHER ==
--- OUTSIDE RECORDS SUMMARY | 2019-05-11 00:38 | XMS REPORT ---
:1960 [facility] Address [address] [place] [address] Care Team Providers Name Role Phone TERA COX Unavailable Unavailable JACQUELYN MONTES DE OCA Unavailable Unavailable NICHELLE PALACIOS Unavailable Unavailable Payers Payer Name Policy Type Policy Number Effective Date Expiration Date Problems This patient has no known problems. Allergies, Adverse Reactions, Alerts Allergy Allergy Status Severity Reaction(s) Onset Inactive Treating Comments Name Type Date Date Clinician No Known DA Active U 2018-04 Allergies -31 00:00:0 0 No Known DA Active U 2017-07 Allergies -26 00:00:0 0 Medications This patient has no known medications. Results Test Description Test Time Test Comments Text Results Atomic Results Result Comments COMPREHENSIVE METABOLIC PANEL 2019-01-03 18:02:00 Test Item Value Reference Range Comments SODIUM (test code=NA) 138 mmol/L 134-147 POTASSIUM (test code=K) 4.1 mmol/L 3.4-5.0 CHLORIDE (test code=CL) 104 mmol/L 100-108 CARBON DIOXIDE (test code=CO2) 23 mmol/L 21-32 ANION GAP (test code=GAP) 11.0 GAP calc 4.0-15.0 GLUCOSE (test code=GLU) 347 MG/DL 70-110 BLOOD UREA NITROGEN (test code=BUN) 14 MG/DL 7-18 GLOMERULAR FILTRATION RATE (test code=GFR) >=60 max estimate estGFR >60 CREATININE (test code=CREAT) 1.2 MG/DL 0.8-1.3 TOTAL PROTEIN (test code=PROT) 7.6 G/DL 6.4-8.2 ALBUMIN (test code=ALB) 3.8 G/DL 3.4-5.0 GLOBULIN (test code=GLOB) 3.8 GM/dL ALBUMIN/GLOBULIN RATIO (test code=A/G) 1.0 RATIO 1.2-2.2 CALCIUM (test code=CA) 9.8 MG/DL 8.5-10.1 BILIRUBIN TOTAL (test code=BILT) 0.60 MG/DL 0.2-1.2 SGOT/AST (test code=AST) 26 Unit/L 15-37 SGPT/ALT (test code=ALT) 53 Unit/L 12-78 ALKALINE PHOSPHATASE TOTAL (test code=ALKP) 149 Unit/L 50-136 [id number] 18:02:00 Test Item Value Reference Range Comments AMYLASE (test code=SERGIO) 82 Unit/L 25-115 [id number] 18:02:00 Test Item Value Reference Range Comments LIPASE (test code=LIP) 185 Unit/L 114-286 COMPREHENSIVE METABOLIC [id number] 17:56:00 Test Item Value Reference Range Comments SODIUM (test code=NA) 138 mmol/L 134-147 POTASSIUM (test code=K) 4.1 mmol/L 3.4-5.0 CHLORIDE (test code=CL) 104 mmol/L 100-108 CARBON DIOXIDE (test code=CO2) 23 mmol/L 21-32 ANION GAP (test code=GAP) 11.0 GAP calc 4.0-15.0 GLUCOSE (test code=GLU) 347 MG/DL 70-110 BLOOD UREA NITROGEN (test code=BUN) 14 MG/DL 7-18 GLOMERULAR FILTRATION RATE (test code=GFR) estGFR >60 CREATININE (test code=CREAT) MG/DL 0.8-1.3 TOTAL PROTEIN (test code=PROT) G/DL 6.4-8.2 ALBUMIN (test code=ALB) G/DL 3.4-5.0 GLOBULIN (test code=GLOB) GM/dL ALBUMIN/GLOBULIN RATIO (test code=A/G) RATIO 1.2-2.2 CALCIUM (test code=CA) 9.8 MG/DL 8.5-10.1 BILIRUBIN TOTAL (test code=BILT) MG/DL 0.2-1.2 SGOT/AST (test code=AST) Unit/L 15-37 SGPT/ALT (test code=ALT) Unit/L 12-78 ALKALINE PHOSPHATASE TOTAL (test code=ALKP) Unit/L 50-136 [id number] 17:56:00 Test Item Value Reference Range Comments AMYLASE (test code=SERGIO) Unit/L 25-115 [id number] 17:56:00 Test Item Value Reference Range Comments LIPASE (test code=LIP) 185 Unit/L 114-286 CBC W/AUTO [id number] 17:46:00 Test Item Value Reference Range Comments WHITE BLOOD CELL (test code=WBC) 7.6 K/mm3 3.5-11.0 RED BLOOD CELL (test code=RBC) 4.45 M/mm3 4.70-6.10 HEMOGLOBIN (test code=HGB) 13.5 G/DL 12.3-15.9 HEMATOCRIT (test code=HCT) 37.9 % 35.8-46.7 MEAN CELL VOLUME (test code=MCV) 85.2 Fl 86.3-98.9 MEAN CELL HGB (test code=MCH) 30.3 pg 28.9-34.4 MEAN CELL HGB CONCETRATION (test code=MCHC) 35.6 G/DL 32.1-34.5 RED CELL DISTRIBUTION WIDTH (test code=RDW) 13.1 SD 11.5-14.5 PLATELET COUNT (test code=PLT) 269.0 K/mm3 150-450 MEAN PLATELET VOLUME (test code=MPV) 9.80 fL 7.0-9.6 NEUTROPHIL % (test code=NT%) 64.7 % 40-76 LYMPHOCYTE % (test code=LY%) 24.0 % 20.5-51.1 MONOCYTE % (test code=MO%) 7.7 % 1.7-9.3 EOSINOPHIL % (test code=EO%) 3.3 % 0.0-6.0 BASOPHIL % (test code=BA%) 0.3 % 0.0-2.0 NEUTROPHIL # (test code=NT#) 4.93 K/mm3 1.8-7.6 LYMPHOCYTE # (test code=LY#) 1.8 K/mm3 0.6-3.0 MONOCYTE # (test code=MO#) 0.6 K/mm3 0.2-1.5 EOSINOPHIL # (test code=EO#) 0.3 K/mm3 0.0-0.4 BASOPHIL # (test code=BA#) 0.0 K/mm3 0.0-0.2 MANUAL DIFF REQUIRED (test code=MDIFF) NO DIFF/SCN CRITERIA - CT ABD PELVIS W/O [id number] 17:46:00 Name: FAITH VANCE [facility] : 1960 Age/S: 58 / M [address] [place] Unit #: [id number] Loc: [place] [address] Phys: Nila Chester MD Acct: [id number] Dis Date: Status : REG ER PHONE #: [phone] Exam Date: 01/03/2019 1737 FAX #: Reason: llq EXAMS: CPT: [id number] CT ABD PELVIS W/O CONT 00846 Location ofdictation: B2 CT abdomen and pelvis without contrast CLINICAL INDICATION: Left lower quadrant pain x4 months Comments: Volumetric data acquisition through thepelvis without intravenous contrast reconstructed as contiguous axial volume, and multiplanar coronal and sagittal reconstructions per department protocol. 5 mm axial sections. Reconstructions - coronal and sagittal planes Automated exposure reduction (Auto mA/Smart mA) was utilized in compliance with ACR [employer] with DLP of 448.3 mGy-cm. COMPARISON: 09/14/2017 FINDINGS: Lung bases: Minimal patchyinfiltrate right lung base , stable. Hepatobiliary: Fatty liver without mass. Gallbladder removed. Spleen and pancreas appear normal Adrenals: Normal Kidneys: No renal stones or hydronephrosis. Bladder is intact. Stable simple right renal cyst measuring 2.7 cm. GI : No evidence for bowel obstruction. No inflammatory change, free fluid or free air. Normal appendix seen. No bowel containing hernias. No free fluid or free air. Retroperitoneum and pelvis: No abnormal mass or adenopathy. Bones and soft tissues: Postsurgical changes of the lower lumbar spine with no focal findings or changes. IMPRESSION: 1. Comparison made to 09/14/2017. No acute findings or changes in the abdomen or pelvis. 2. Status post cholecystectomy. PAGE 1 Signed Report ( CONTINUED) Name: FAITH VANCE [facility] : [birth year] Age/S: 58 / M [address] [facility] [place] Unit #: [id number] Loc : [place] [address] Phys: Rochelle Chester MD Acct: [id number] Dis Date: Status: REG ER PHONE #: [phone] Exam Date: 01/03/2019 1738 FAX #: Reason: llq EXAMS: CPT: [id number] CT ABD PELVIS W/O CONT 71960 < Continued> at 1746 Reported and signed by: Renuka Willett M.D. CC: Nila Chester MD Technologist:RT Kevin(R)(CT )(MRI) CTDI: DLP: Trnscb Date/Time: 01/03/2019 (3361) [email or web address] Orig Print D/T: S: 01/03/2019 (5710) PAGE 2 Signed ReportCTA BRAIN [place] [address] Patient Name: FAITH VANCE MR #: [id number] : 1960 Age/Sex: 57/M Req #: [id number] Adm Physician: TERA COX MD Ordered by: TERA COX MD Report # : [id number] Location: [facility] Room/Bed: [place] [address] Procedure: [id number] CT/CTA BRAIN Exam Date: 10/24/17 Exam Time: 6181 REPORT STATUS: Signed Intracranial CTA History : Weakness, left-sided numbness, possible CVA, Comparison studies:Head [...] M1 and proximal M2 segments. Anterior cerebral arteries : Patent, no abnormalities in the A1 and [...] by: Dr. Ana Maria Arteaga M.D. on 2017 4:33 PM Dictated By: ANA MARIA ARTEAGA MD 1633 Transcribed By: ANDREE on 10/24/17 1633 COPY TO: TERA COX MDCT BRAIN WO [place] [address] Patient Name: FAITH VANCE MR #: [id number] : 1960 Age/Sex: 57/M Req #: [id number] Adm Physician: Ordered by: ARLETH WAHL MD Report #: [id number] Location: ER Room/Bed: Procedure: [id number] CT/CT BRAIN WO Exam Date: 10/23/17 Exam [...] chronic cortical vascular insults. No abnormal densities. Sellar /suprasellar region: No abnormalities. Craniocervical junction: Patent foramen magnum. No Chiari one malformation. Incidental findings: Atherosclerotic calcifications in thecarotid siphons and intradural vertebral arteries. IMPRESSION: 1. No acute intracranial abnormalities. 2. No changes from the previous head CT of 04/04/2017. Findings discussed with Dr. Silvana manzo at 4:36 PM on 10/23/2021. Signed by: Dr. Ana Maria Arteaga M.D. on 10/23/2017 4:43 PM Dictated By: ANA MARIA ARTEAGA MD 1643 Transcribed By: ANDREE on 10/23/17 1643 COPY TO: ARLETH WAHL [facility] [place] [address] Patient Name: FAITH VANCE MR #: [id number] : 1959 Age/Sex: 57/M Req #: [id number] Adm Physician: Ordered by: ARLETH WAHL MD Report #: [id number] Location: Room/Bed : Procedure: [id number] CT/CTA CHEST Exam Date: 10/23 Exam Time: 1545 REPORT STATUS: Signed EXAM: [...] Arch: 28 mm. Proximal Descendin mm. Mid Descending : 24 mm. Distal Descendin mm. Other: No intramural hematoma or aortic dissection identified. Patent left subclavian artery stent incidentally noted. Lymph Nodes: Nosuspicious adenopathy. Lungs: No pneumothorax or pleural effusion. [...] 4:21 PM Dictated By: OREN IRIZARRY MD 9351 Transcribed By: ANDREE on 10/23/17 1621 COPY TO: [facility]LETH WAHL [facility] [place] [address] Patient Name: FAITH VANCE MR #: [id number] : 1960 Age/Sex: 57/M Req #: [id number] Adm Physician: Ordered by: ARLETH WAHL MD Report #: [id number] Location: ER Room/Bed: Procedure: [id number] DX/CHEST SINGLE (PORTABLE) Exam Date: 10/23/17 Exam Time : 1420 REPORT STATUS: Signed PROCEDURE: A single AP viewof the chest. COMPARISON: Chest x-ray 04/04/2017. INDICATIONS: LEFT SIDED NUMBNESS, WEAKNESS. HEADACHE FINDINGS: Lines/tubes: Left- sided pacemaker with 2 intact wires. Median sternotomy wires are present. Lungs: The lungs are well inflated and clear. There is no evidence of pneumonia or pulmonary edema. Pleura: There is no pleural effusion or pneumothorax. Heart and mediastinum: The heart and the mediastinum are unremarkable. Bones: No acute bony abnormality. IMPRESSION: No acute cardiopulmonary disease. Dictated by: Elie Barfield M.D. on 2017 at 14:43 Electronically approved by: Elie Barfield M.D. on 10/23/2017 at 14:43 Dictated By: ELIE BARFIELD MD 1443 Transcribed By: ANIBAL on 10/23/17 1443 COPY TO: ARLETH WAHL V MDCT BRAIN WO [place] [address] Patient Name: FAITH VANCE MR #: [id number] : 1960 Age/Sex: 56/M Req #: [id number] Adm Physician: Ordered by: JACQUELYN MONTES DE OCA MD Report #: [id number] Location: ER Room/Bed: Procedure: [id number] CT/CT BRAIN WO Exam Date:Exam Time: REPORT STATUS: Signed EXAMINATION: Head CT [...] Extra-axial spaces: No abnormal density. Brain volume: Normalfor age. Craniocervical junction: No mass, Chiari malformation, or basilar invagination. Sella: No mass. Paranasal/ mastoid sinuses: Mild mucosal thickening in right maxillary sinus. IMPRESSION: No intracranial abnormality. Signed by: Dr. Seema Jean M.D. on 04/04/2017 2:02 AM Dictated By: SEEMA JEAN MD 1 Transcribed By: ANDREE on 04/04/17201 COPY TO: JACQUELYN MONTES DE OCA MDCT CERVICAL SPINE WO [place] [address] Patient Name: FAITH VANCE MR #: [id number] : 1960 Age/Sex: 56/M Req #: [id number] Adm Physician : Ordered by: JACQUELYN MONTES DE OCA MD Report #: [id number] Location: ER Room/ Bed: Procedure: [id number] CT/CT CERVICAL SPINE WO Exam Date: Exam Time: REPORT STATUS: Signed History: Status post fall. Comparison studies: Report of CT cervical spine from 11/16/2008. Technique: Axial images were obtained throughthe cervical region.. Coronal and sagittal images reconstructed from the axial data.. Intravenous contrast: None Findings: Fractures: None. Soft tissue injuries: None. Atlantoaxialarticulation: Intact. Alignment: Normal lordosis. No scoliosis. Cervicomedullary [...] 04/04/17206 COPY TO: JACQUELYN MONTES DE OCA [facility] [address] [place], [place] [address] Patient Name: FAITH VANCE MR #: [id number] : 1960 Age/Sex: 56/M Req #: [id number] Adm Physician : Ordered by: JACQUELYN MONTES DE OCA MD Report #: [id number] Location: ER Room/ Bed: Procedure: [id number] DX/CHEST SINGLE (PORTABLE) Exam Date: 04/04/17 Exam [...] MD on 04/04/2017 2:12 AM Dictated By: TISH TALBOT MD 1 Transcribed By: Roxie 04/04/17211 COPY TO: JACQUELYN MONTES DE OCA MDHIP RIGHT 2-3 VW (+/- PELVIS) [place] [address] Patient Name: FAITH VANCE MR #: [id number] : 1960 Age/Sex: 56/M Req #: [id number] Adm Physician: Ordered by: JACQUELYN MONTES DE OCA MD Report #: [id number] Location: ER Room/Bed: Procedure: 6 DX/HIP RIGHT 2-3 VW (+/- PELVIS) Exam [...] Impression: No acute bony abnormality Signed by: Jaren Talbot MD on 04/04/2017 2:14 AM Dictated By: MARCO A TALBOT MD 3 Transcribed By: ANDREE on 04/04/17213 COPY TO: JACQUELYN MONTES DE OCA MDSP LUMBAR, COMPLETE MIN 4VW [place] [address] Patient Name: FAITH VANCE MR #: [id number] : 1960 Age/Sex: 56/M Req # : [id number] Adm Physician: Ordered by: JACQUELYN MONTES DE OCA MD Report #: [id number] Location: ER Room/Bed: Procedure: DX/SP LUMBAR, COMPLETE MIN 4VW Exam Date: 04/04/17 Exam Time: 107 REPORT STATUS: Signed SP LUMBAR, COMPLETE MIN 4VW Comparison: CT 08/10/2016 Clinical history: Status post fall with lower back pain Findings: Postoperative changes from posterior fusion from left L4 vertebral body to L5-S1 facets and posterior decompression. No evidence of hardware loosening or fracture. Alignment is grossly intact. Unchanged minimal anterior wedging at T12, L1. Scattered degenerative changes, with moderate tosevere L2-L4 facet arthrosis, degenerative disc disease and posterior disc osteophyte at L2-3. Impression: No acute bony abnormality Signed by: Dr Marco A Talbot MD on 04/04/2017 2:28 AM Dictated By: MARCO A TALBOT MD 7 Transcribed By: ANDREE on 04/04/17227 COPY TO: JACQUELYN MONTES DE OCA MDUS ABDOMEN COMPLETE [place] [address] Patient Name: FAITH VANCE MR #: [id number] : 1960 Age/Sex: 56/M Req #: [id number] Adm Physician: NICHELLE PALACIOS MD Ordered by: SCOTT AMIN MD Report #: [id number] Location: [facility] Room/Bed: [place] [address] _ Procedure: [id number] US/US ABDOMEN COMPLETE Exam Date: 03/08/17 Exam [...] or cystic mass, echogenic calculi, or hydronephrosis. Normalparenchymal echogenicity. Spleen: 10.0 cm. No focal mass. Pancreas: The pancreas was insufficiently visualized for comment secondary to overlying bowel gas and increased body habitus.Inferior vena cava: Normal. Aorta: Normal. Ascites: None. CONCLUSION: 1. No acutesonographic abnormality. 2. Hepatic steatosis. 3. Right renal simple cyst. Dictated by: Brooke Bashir M.D. on 03/08/2017 at 10:40 Electronically approved by: Brooke Bashir M.D. on03/08/2017 at 10:40 Dictated By: BROOKE BASHIR MD 1040 Transcribed By: ANIBAL on 03/08/17 1040 COPY TO: SCOTT AMIN [facility] SINGLE (PORTABLE) [place] [address] Patient Name: FAITH VANCE MR #: [id number] : 1960 Age/Sex: 56/M Req #: [id number] Adm Physician: Ordered by: JACQUELYN MONTES DE OCA MD Report #: [id number] Location: ER Room/Bed: Procedure: [id number] DX/CHEST SINGLE (PORTABLE) Exam Date: 03/05/17 Exam Time: 0445 REPORT STATUS: Signed CHEST SINGLE (PORTABLE) , 03/05/2017 4:15 AM Technique: CHEST SINGLE (PORTABLE) Comparison: 2016 Clinical history: Chest pain Findings: Status post median sternotomy with broken superior sternotomy wire. See impression. Impression: Low lung volumes result in accentuation of the cardiomediastinal silhouetteand bibasilar vascular crowding. No pleural effusion or pneumothorax. Signed by: Dr Marco A Talbot MD on 03/05/2017 5:35 AM Dictated By: MARCO A TALBOT MD 4 Transcribed By: ANDREE on 03/05/17534 COPY TO: JACQUELYN MONTES DE OCA MD
[2019-05-11 01:18] LABS: Basophils % 0.2 % (0-1.3); Lymphocytes % 10.7 % (15.3-44.8); MPV 9.6 fL (7.6-11.3); Protime INR 1.06; RBC Red Blood Cell Count 4.66 M/uL (4.33-5.43)
[2019-05-11] MEDS ORDERED: FENTANYL CITR 100 MCG/2 ML ONE (01:18)
[2019-05-11] MEDS ORDERED: NA CHLORIDE 0.9% 1,000 ML ONE (01:18)
[2019-05-11] MEDS ORDERED: ONDANSETRON 4 MG/2 ML VIAL ONE (01:18)
[2019-05-11 01:39] LABS: ALT/SGPT 30 U/L (12-78); AST/SGOT 15 U/L (15-37); Albumin 3.9 g/dL (3.4-5.0); Alkaline Phosphatase 156 U/L (45-117); BUN Blood Urea Nitrogen 10 mg/dL (7-18); Bicarbonate 19 mmol/L (21-32); Bilirubin Direct 0.1 mg/dL (0-0.2); Bilirubin Total 0.5 mg/dL (0.2-1.0); NT PRO-BNP 438 pg/mL (<125); Potassium 3.4 mmol/L (3.5-5.1); Protein, Total 7.8 g/dL (6.4-8.2); Sodium Level 133 mmol/L (136-145); Troponin (Emerg Dept Use Only) < 0.02 ng/mL (0.0-0.045)
[2019-05-11 01:43] LABS: Glucose Level 597 mg/dL (74-106)
--- NOTE | 2019-05-11 01:48 | EDPHYS ---
Physician Documentation [facility] Name: Ernie Rooney Age: 58 yrs Sex: Male : 1960 Arrival Date: 05/11/2019 Time: 00:55 Bed 4 Private MD: ED Physician Mustapha Cole HPI: 05/11 01:06 This 58 yrs old Male presents to ER via EMS with complaints of Chest Pain. [facility] 01:06 The patient or guardian reports chest pain that is located primarily in the anterior caitlyn chest wall, bilaterally. Onset: 2 day(s) ago. The pain does not radiate. Associated signs and symptoms: The patient has no apparent associated signs or symptoms. The chest pain is described as a pressure. Modifying factors: The symptoms are alleviated by nothing. the symptoms are aggravated by nothing. Severity of pain: At its worst the pain was mild in the emergency department the pain has resolved. The patient has not experienced similar symptoms in the past. Historical: - Allergies: 01:08 NKA; lp1 - Home Meds: :08 famotidine 20 mg Oral tab 1 tab 2 times per day [Active]; lisinopril 2.5 mg Oral tab 1 lp1 tab once daily [Active]; tamsulosin 0.4 mg Oral cp24 1 cap once daily [Active]; amlodipine 5 mg tab 1 tab once daily [Active]; gabapentin 300 mg Oral cap 1 cap 3 times per day [Active]; metoclopramide HCl 10 mg Oral tab 1 tab three times a day [Active]; dicyclomine 20 mg Oral tab 1 tab every 6 hours [Active]; BRILINTA 90 mg oral tab 1 tab 2 times per day [Active]; atorvastatin 80 mg oral tab 1 tab once daily [Active]; aspirin 81 mg Oral TbEC 1 tab once daily [Active]; Humulin 70/30 100 unit/mL (70-30) Sub-Q susp 16 unit daily [Active]; ibuprofen 600 mg Oral tab 1 tab every 8 hours [Active]; - PMHx: 01:08 Arthritis; Back pain; CVA; Depression; Diabetes - NIDDM; Fibromyalgia; GERD; High lp1 Cholesterol; Hyperlipidemia; Hypertension; Hypothyroidism; Left sided weakness from previous CVA; Myocardial infarction; - PSHx: 01:08 CABG; Heart stents; Pacemaker/Defibrillator; lp1 - Immunization history:: Adult Immunizations up to date. - Family history:: not pertinent. - Social history:: Smoking status: Patient/guardian denies using tobacco. - Ebola Screening: : No symptoms or risks identified at this time. ROS: 01:06 Constitutional: Negative for fever, chills, and weight loss, Eyes: Negative for injury, caitlyn pain, redness, and discharge, ENT: Negative for injury, pain, and discharge, Neck: Negative for injury, pain, and swelling, Cardiovascular: Negative for chest pain, palpitations, and edema, Respiratory: Negative for shortness of breath, cough, wheezing, and pleuritic chest pain, Abdomen/GI: Negative for abdominal pain, nausea, vomiting, diarrhea, and constipation, Back: Negative for injury and pain, : Negative for injury, bleeding, discharge, and swelling, MS/Extremity: Negative for injury and deformity, Skin: Negative for injury, rash, and discoloration, Neuro: Negative for headache, weakness, numbness, tingling, and seizure, Psych: Negative for depression, anxiety, suicide ideation, homicidal ideation, and hallucinations, Allergy/Immunology: Negative for hives, rash, and allergies, Endocrine: Negative for neck swelling, polydipsia, polyuria, polyphagia, and marked weight changes, Hematologic/Lymphatic: Negative for swollen nodes, abnormal bleeding, and unusual bruising. Exam: 01:06 Constitutional: This is a well developed, well nourished patient who is awake, alert, caitlyn and in no acute distress. Head/Face: Normocephalic, atraumatic. Eyes: Pupils equal round and reactive to light, extra-ocular motions intact. Lids and lashes normal. Conjunctiva and sclera are non-icteric and not injected. Cornea within normal limits. Periorbital areas with no swelling, redness, or edema. ENT: Nares patent. No nasal discharge, no septal abnormalities noted. Tympanic membranes are normal and external auditory canals are clear. Oropharynx with no redness, swelling, or masses, exudates, or evidence of obstruction, uvula midline. Mucous membranes moist. Neck: Trachea midline, no thyromegaly or masses palpated, and no cervical lymphadenopathy. Supple, full range of motion without nuchal rigidity, or vertebral point tenderness. No Meningismus. Chest/axilla: Normal chest wall appearance and motion. Nontender with no deformity. No lesions are appreciated. Cardiovascular: Regular rate and rhythm with a normal S1 and S2. No gallops, murmurs, or rubs. Normal PMI, no JVD. No pulse deficits. Respiratory: Lungs have equal breath sounds bilaterally, clear to auscultation and percussion. No rales, rhonchi or wheezes noted. No increased work of breathing, no retractions or nasal flaring. Abdomen/GI: Soft, non-tender, with normal bowel sounds. No distension or tympany. No guarding or rebound. No evidence of tenderness throughout. Back: No spinal tenderness. No costovertebral tenderness. Full range of motion. Skin: Warm, dry with normal turgor. Normal color with no rashes, no lesions, and no evidence of cellulitis. MS/ Extremity: Pulses equal, no cyanosis. Neurovascular intact. Full, normal range of motion. Neuro: Awake and alert, GCS 15, oriented to person, place, time, and situation. Cranial nerves II-XII grossly intact. Motor strength 5/5 in all extremities. Sensory grossly intact. Cerebellar exam normal. Normal gait. Psych: Awake, alert, with orientation to person, place and time. Behavior, mood, and affect are within normal limits. Vital Signs: 00:50 BP 89 / 59; Pulse 91; Resp 13; Temp 96.3(TE); Pulse Ox 100% on 2 lpm NC; lp1 00:57 Weight 72.57 kg (R); Height 5 ft. 7 in. (170.18 cm); Pain 8/10; lp1 01:03 BP 106 / 73; Pulse 86; Resp 18; Pulse Ox 100% on 2 lpm NC; lp1 01:30 BP 100 / 60; Pulse 88; Resp 18; Pulse Ox 100% on R/A; lp1 02:00 BP 102 / 84; Pulse 98; Resp 16; Pulse Ox 100% on R/A; lp1 03:09 BP 105 / 69; Pulse 100; Resp 16; Temp 98.4(O); Pulse Ox 100% on R/A; Pain 7/10; lp1 00:57 Body Mass Index 25.06 (72.57 kg, 170.18 cm) 1 MDM: 00:56 Patient medically screened. [facility] 01:08 Data reviewed: vital signs, nurses notes, lab test result(s), EKG, radiologic studies, [facility] CT scan, plain films. 12 00:57 Order name: Basic Metabolic Panel lp1 05/11 00:57 Order name: CBC with Diff lp1 05/11 00:57 Order name: LFT's lp1 05/11 00:57 Order name: Magnesium lp1 05/11 00:57 Order name: NT PRO-BNP lp1 05/11 00:57 Order name: PT-INR lp1 05/11 00:57 Order name: Troponin (emerg Dept Use Only) lp1 05/11 01:05 Order name: Lipase [facility] 05/11 01:05 Order name: UDS [facility] 05/11 01:20 Order name: Basic Metabolic Panel; Complete Time: 01:47 EDMS 05/11 01:20 Order name: Liver (Hepatic) Function; Complete Time: 01:47 EDMS 05/11 01:20 Order name: Troponin (Emerg Dept Use Only); Complete Time: 01:47 EDMS 05/11 01:20 Order name: NT PRO-BNP; Complete Time: 01:47 EDMS 05/11 01:20 Order name: Magnesium; Complete Time: 01:47 EDMS 05/11 00:57 Order name: XRAY Chest (1 view) lp1 05/11 00:57 Order name: EKG; Complete Time: 02:34 lp1 05/11 01:20 Order name: Chest Single View EDMS 05/11 01:20 Order name: CBC with Automated Diff; Complete Time: 01:42 EDMS 05/11 01:21 Order name: Protime (+INR); Complete Time: 01:42 EDMS 05/11 00:57 Order name: Cardiac monitoring; Complete Time: 01:09 lp1 05/11 00:57 Order name: EKG - Nurse/Tech; Complete Time: 01:09 lp1 05/11 00:57 Order name: IV Saline Lock; Complete Time: 01:09 lp1 05/11 00:57 Order name: Labs collected and sent; Complete Time: 01:09 lp1 05/11 00:57 Order name: O2 Per Protocol; Complete Time: 01:09 lp1 05/11 00:57 Order name: O2 Sat Monitoring; Complete Time: 01:09 lp1 Administered Medications: 00:50 Drug: NS 0.9% 500 ml {Note: Given by NS from EMS.} Route: IV; Rate: bolus; Site: left lp1 forearm; 00:50 Follow up: IV Status: Completed infusion lp1 :24 Drug: Zofran 4 mg Route: IVP; Site: left forearm; lp1 02:00 Follow up: Response: No adverse reaction lp1 01:24 Drug: fentaNYL (PF) 25 mcg {Note: RASS 0.} Route: IVP; Site: left forearm; lp1 02:00 Follow up: Response: No change in condition lp1 :25 Drug: NS 0.9% 1000 ml Route: IV; Rate: 125 ml/hr; Site: left forearm; lp1 02:02 Follow up: IV Status: Infusion continued upon admission lp1 02:20 Drug: Potassium Effervescent Tablet 25 mEq Route: PO; lp1 03:13 Follow up: Response: No adverse reaction lp1 02:20 Drug: Potassium Chloride 20 mEq Route: PO; lp1 03:13 Follow up: Response: No adverse reaction lp1 02:20 Drug: Pepcid 20 mg Route: IVP; Site: left forearm; lp1 03:13 Follow up: Response: No adverse reaction lp1 02:20 Drug: fentaNYL (PF) 25 mcg Route: IVP; Site: left forearm; lp1 03:14 Follow up: Response: Pain is decreased lp1 03:00 Drug: Insulin Regular Human 10 units {Co-Signature: aa1 (Glendy Singh RN).} Route: lp1 IVP; Site: left forearm; 03:22 Follow up: Response: No adverse reaction lp1 03:00 Drug: Insulin Regular Human 10 units {Co-Signature: aa1 (Glendy Singh RN).} Route: lp1 Sub-Q; Site: left lower abdomen; 03:22 Follow up: Response: No adverse reaction lp1 03:00 Drug: Lovenox 60 mg Route: Sub-Q; Site: left lower abdomen; lp1 03:14 Follow up: Response: No adverse reaction lp1 Disposition: 05/11/19 01:46 Hospitalization ordered by Heather Gaffney for Inpatient Admission. Preliminary diagnosis are Other chest pain, Type 1 diabetes mellitus, Unspecified kidney failure, Hypokalemia. - Bed requested for Telemetry/MedSurg (Inpatient). - Status is Inpatient Admission. lp1 - Condition is Fair. - Problem is new. - Symptoms have improved. UTI on Admission? No Signatures: Dispatcher [employer] EDMustapha Duggan MD MD cha Pena, Laura RN RN lp1 Michele Cobos mw2 Glendy Singh RN aa1 Corrections: (The following items were deleted from the chart) 01:49 01:46 Hospitalization Ordered by Heather Gaffney MD for Inpatient Admission. Preliminary mw2 diagnosis is Other chest pain; Type 1 diabetes mellitus; Unspecified kidney failure; Hypokalemia. Bed requested for Telemetry/MedSurg (Inpatient). Status is Inpatient Admission. Condition is Fair. Problem is new. Symptoms have improved. UTI on Admission? No. caitlyn 03:37 01:49 05/11/2019 01:46 Hospitalization Ordered by Heather Gaffney MD for Inpatient lp1 Admission. Preliminary diagnosis is Other chest pain; Type 1 diabetes mellitus; Unspecified kidney failure; Hypokalemia. Bed requested for Telemetry/MedSurg (Inpatient). Status is Inpatient Admission. Condition is Fair. Problem is new. Symptoms have improved. UTI on Admission? No. mw2
--- NOTE | 2019-05-11 01:48 | ER ---
Nurse's Notes [facility] [place] [place] [facility] Name: Ernie Rooney Age: 58 yrs Sex: Male : 1960 Arrival Date: 05/11/2019 Time: 00:55 Bed 4 Private MD: Diagnosis: Other chest pain;Type 1 diabetes mellitus;Unspecified kidney failure;Hypokalemia Presentation: 05/11 01:00 Presenting complaint: EMS states: Called for patient with chest pain x 2 days, states lp1 feeling his defibrillator; Per EMS, patient hypotensive, in and out of consciousness on scene; Patient awake and alert on arrival to ED. Transition of care: patient was not received from another setting of care. Onset of symptoms was May 11, 2019. Risk Assessment: Do you want to hurt yourself or someone else? Patient reports no desire to harm self or others. Initial Sepsis Screen: Does the patient meet any 2 criteria? No. Patient's initial sepsis screen is negative. Does the patient have a suspected source of infection? No. Patient's initial sepsis screen is negative. Care prior to arrival: Medication(s) given: Normal saline infusion, 1000 mL, IV initiated. 20 GA, in the left forearm. 01:00 Method Of Arrival: EMS: [facility] lp1 01:00 Acuity: TONE 2 lp1 Historical: - Allergies: 01:08 NKA; lp1 - Home Meds: 01:08 famotidine 20 mg Oral tab 1 tab 2 times per day [Active]; lisinopril 2.5 mg Oral tab 1 lp1 tab once daily [Active]; tamsulosin 0.4 mg Oral cp24 1 cap once daily [Active]; amlodipine 5 mg tab 1 tab once daily [Active]; gabapentin 300 mg Oral cap 1 cap 3 times per day [Active]; metoclopramide HCl 10 mg Oral tab 1 tab three times a day [Active]; dicyclomine 20 mg Oral tab 1 tab every 6 hours [Active]; BRILINTA 90 mg oral tab 1 tab 2 times per day [Active]; atorvastatin 80 mg oral tab 1 tab once daily [Active]; aspirin 81 mg Oral TbEC 1 tab once daily [Active]; Humulin 70/30 100 unit/mL (70-30) Sub-Q susp 16 unit daily [Active]; ibuprofen 600 mg Oral tab 1 tab every 8 hours [Active]; - PMHx: 01:08 Arthritis; Back pain; CVA; Depression; Diabetes - NIDDM; Fibromyalgia; GERD; High lp1 Cholesterol; Hyperlipidemia; Hypertension; Hypothyroidism; Left sided weakness from previous CVA; Myocardial infarction; - PSHx: 01:08 CABG; Heart stents; Pacemaker/Defibrillator; lp1 - Immunization history:: Adult Immunizations up to date. - Family history:: not pertinent. - Social history:: Smoking status: Patient/guardian denies using tobacco. - Ebola Screening: : No symptoms or risks identified at this time. Screenin:25 Abuse screen: Denies threats or abuse. Denies injuries from another. Nutritional lp1 screening: No deficits noted. Tuberculosis screening: No symptoms or risk factors identified. Fall Risk Total Cummings Fall Scale indicates High Risk Score (45 or more points). Fall prevention measures have been instituted. Side Rails Up X 2 As available patient and family educated on Fall Prevention Program and Strategies. Assessment: 01:00 General: Appears ill, Behavior is cooperative. Pain: Complains of pain in chest Pain lp1 does not radiate. Quality of pain is described as stabbing, Pain began 2-3 days ago. Neuro: Level of Consciousness is awake, alert, obeys commands, Oriented to person, place, situation. Cardiovascular: Capillary refill < 3 seconds in bilateral fingers Patient's skin is warm and dry. Respiratory: Airway is patent Respiratory effort is even, Breath sounds are clear bilaterally. GI: Abdomen is non-distended. : No signs and/or symptoms were reported regarding the genitourinary system. EENT: No signs and/or symptoms were reported regarding the EENT system. Derm: Skin is intact, Skin is dry, Skin is normal. Musculoskeletal: No deficits noted. 01:12 Reassessment: Provider notified of patient complaint of chest pain; Verbal order for lp1 Zofran 4mg IV x1, Fentanyl 25mcg IV x1. Vital Signs: 00:50 BP 89 / 59; Pulse 91; Resp 13; Temp 96.3(TE); Pulse Ox 100% on 2 lpm NC; lp1 00:57 Weight 72.57 kg (R); Height 5 ft. 7 in. (170.18 cm); Pain 8/10; lp1 01:03 BP 106 / 73; Pulse 86; Resp 18; Pulse Ox 100% on 2 lpm NC; lp1 01:30 BP 100 / 60; Pulse 88; Resp 18; Pulse Ox 100% on R/A; lp1 02:00 BP 102 / 84; Pulse 98; Resp 16; Pulse Ox 100% on R/A; lp1 03:09 BP 105 / 69; Pulse 100; Resp 16; Temp 98.4(O); Pulse Ox 100% on R/A; Pain 7/10; lp1 00:57 Body Mass Index 25.06 (72.57 kg, 170.18 cm) lp1 ED Course: 00:50 Patient has correct armband on for positive identification. Placed in gown. Bed in low lp1 position. night monitor on. Pulse ox on. NIBP on. 00:50 Maintain EMS IV. Dressing intact. Good blood return noted. Site clean \T\ dry. Gauge \T\ lp 1 site: 20g to L FA. Inserted saline lock: 22 gauge in right antecubital area, using aseptic technique. Blood collected. 00:55 Patient arrived in ED. lp1 00:56 Mustapha Cole MD is Attending Physician. caitlyn 00:57 Arm band placed on left wrist. lp1 01:00 Mariza Waller RN is Primary Nurse. lp1 01:00 Oxygen administration via nasal cannula \T\ 2L/min. lp1 01:02 Triage completed. lp1 01:22 Chest Single View In Process Unspecified. EDMS 01:45 Heather Gaffney MD is Hospitalizing Provider. caitlyn 03:12 No provider procedures requiring assistance completed. Patient admitted, IV remains in lp1 place. Administered Medications: 00:50 Drug: NS 0.9% 500 ml {Note: Given by NS from EMS.} Route: IV; Rate: bolus; Site: left lp1 forearm; 00:50 Follow up: IV Status: Completed infusion lp1 01:24 Drug: Zofran 4 mg Route: IVP; Site: left forearm; lp1 02:00 Follow up: Response: No adverse reaction lp1 01:24 Drug: fentaNYL (PF) 25 mcg {Note: RASS 0.} Route: IVP; Site: left forearm; lp1 02:00 Follow up: Response: No change in condition lp1 01:25 Drug: NS 0.9% 1000 ml Route: IV; Rate: 125 ml/hr; Site: left forearm; lp1 02:02 Follow up: IV Status: Infusion continued upon admission lp1 02:20 Drug: Potassium Effervescent Tablet 25 mEq Route: PO; lp1 03:13 Follow up: Response: No adverse reaction lp1 02:20 Drug: Potassium Chloride 20 mEq Route: PO; lp1 03:13 Follow up: Response: No adverse reaction lp1 02:20 Drug: Pepcid 20 mg Route: IVP; Site: left forearm; lp1 03:13 Follow up: Response: No adverse reaction lp1 02:20 Drug: fentaNYL (PF) 25 mcg Route: IVP; Site: left forearm; lp1 03:14 Follow up: Response: Pain is decreased lp1 03:00 Drug: Insulin Regular Human 10 units {Co-Signature: aa1 (Glendy Singh RN).} Route: lp1 IVP; Site: left forearm; 03:22 Follow up: Response: No adverse reaction lp1 03:00 Drug: Insulin Regular Human 10 units {Co-Signature: aa1 (Glendy Singh RN).} Route: lp1 Sub-Q; Site: left lower abdomen; 03:22 Follow up: Response: No adverse reaction lp1 03:00 Drug: Lovenox 60 mg Route: Sub-Q; Site: left lower abdomen; lp1 03:14 Follow up: Response: No adverse reaction lp1 Intake: 01:25 IV: 1000ml (IV Fluid); Total: 1000ml. lp1 Outcome: 01:46 Decision to Hospitalize by Provider. caitlyn 03:12 Condition: stable lp1 03:12 Instructed on the need for admit. 03:22 Admitted to Tele room 426, with chart, Report called to SHEBA Garcia lp1 03:37 Patient left the ED. lp1 Signatures: Dispatcher [employer] Mustapha Arredondo MD MD cha Pena, Laura RN RN lp1 Glendy Singh RN aa1
[2019-05-11] MEDS ORDERED: ACETAMINOPHEN 500 MG TAB PO PRN (02:09)
[2019-05-11] MEDS ORDERED: ALPRAZOLAM 0.25 MG TABLET PO PRN (02:09)
[2019-05-11] MEDS ORDERED: POTASSIUM 25 MEQ EFFERV TAB ONE (02:12)
[2019-05-11] MEDS ORDERED: FAMOTIDINE 20 MG/2 ML VIAL IV ONE (02:14)
[2019-05-11] MEDS ORDERED: INSULIN -REGULAR HUMAN 50 UNIT/0.5 ML ML ONE (02:53)
[2019-05-11] MEDS ORDERED: ENOXAPARIN 60 MG/0.6 ML SQ ONE (02:54)
[2019-05-11] MEDS ORDERED: DICYCLOMINE HCL 10 MG CAP PO PRN (06:04)
[2019-05-11] MEDS: MORPHINE 4 MG/ML SYR IV PRN ×3 (06:28→16:19)
[2019-05-11 06:50] LABS: Troponin I 0.03 ng/mL (0.0-0.045)
[2019-05-11] MEDS: HOME MED 1 EA UNK (Metoclopramide Hcl [Reglan] 10 MG) PO SCH ×3 (08:00→17:00)
[2019-05-11 08:29] VITALS: BMI 26.1
--- NOTE | 2019-05-11 08:33 | P.HP ---
Certification for Inpatient Patient admitted to: Observation With expected LOS: <2 Midnights Patient will require the following post-hospital care: None Practitioner: I am a practitioner with admitting privileges, knowledge of patient current condition, hospital course, and medical plan of care. Services: Services provided to patient in accordance with Admission requirements found in Title 42 Section 412.3 of the Code of Federal Regulations Patient History Date of Service: 05/11/19 Reason for admission: Chest pain rule out acute or syndrome History of Present Illness: Patient is a 58-year-old gentleman who came to the hospital with chest discomfort. Pain was mainly in the sternal region. Pain radiated to both of his shoulders. He has had similar chest discomfort in the past. He has had a history of Coronary artery disease with stent placement. His symptoms were not improving so he came into the ER for evaluation. In the emergency room his troponins and EKG have been negative. He will be admitted to be ruled out for acute coronary syndrome. He can follow up as an outpatient if his workup is unremarkable. Patient also has of foot injury. He has been trying to get into the wound healing Center to get this evaluated. There is a darkish discolored area along the heel. This will need to be evaluated further by Podiatry or wound healing Center. Allergies No Known Allergies Allergy (Verified 10/19/12 16:51) Home Medications: Amlodipine Besylate [Norvasc] 5 mg PO DAILY 11/19/18 Dicyclomine [Bentyl*] 20 mg PO Q6H PRN 11/19/18 Famotidine [Pepcid*] 20 mg PO BID 11/19/18 Gabapentin [Neurontin*] 300 mg PO TID 11/19/18 Metoclopramide HCl [Reglan] 10 mg PO TIDWM 11/19/18 Tamsulosin [Flomax*] 0.4 mg PO DAILY 11/19/18 lisinopriL [Prinivil*] 2.5 mg PO DAILY 11/19/18 Aspirin Chewable [Aspirin Chewable*] 81 mg PO BEDTIME 05/11/19 Atorvastatin Calcium [Lipitor] 80 mg PO DAILY 05/11/19 Hum Insulin NPH/Reg Insulin Hm [Humulin 70-30 Vial] 16 units SQ DAILY 05/11/19 Ibuprofen [Motrin] 600 mg PO Q8HP PRN 05/11/19 Ticagrelor [Brilinta*] 90 mg PO BID 05/11/19 - Past Medical/Surgical History Has patient received pneumonia vaccine in the past: Yes Diabetic: Yes -: OK -: GERD -: Hypertension -: Anxiety; depression -: DM insulin dependent -: Hypothyroidism -: enlarged prostate -: cataract in the left eye -: fibromyalgia -: hyperlipidemia -: neuropathy -: pacemaker placement May 2017 -: triple bypass 2003 4 stents -: back surgeries x 6 -: arthroscopic surgeries bilateral knees -: left forearm rodding -: Cholecystectomy -: Appendectomy -: tonsillectomy - Family History Mother Medical History: Heart disease, Hypertension grandparents Medical History: Diabetes, Stroke - Social History Smoking Status: Current some day smoker Alcohol use: No CD- Drugs: No Caffeine use: Yes Review of Systems 10-point ROS is otherwise unremarkable Physical Examination - Vital Signs Temperature: 98 F Blood Pressure: 140/75 Pulse: 88 Respirations: 96 Pulse Ox (%): 17 - Physical Exam General: Alert, In no apparent distress, Oriented x3 HEENT: Atraumatic, PERRLA, Mucous membr. moist/pink, EOMI, Sclerae nonicteric Neck: Supple, 2+ carotid pulse no bruit, No LAD, Without JVD or thyroid abnormality Respiratory: Clear to auscultation bilaterally, Normal air movement Cardiovascular: Regular rate/rhythm, Normal S1 S2, Systolic murmur Gastrointestinal: Normal bowel sounds, Soft and benign, Non-distended, W/out succussion splash, No tenderness Musculoskeletal: No clubbing, No swelling, No tenderness Integumentary: No rashes Neurological: Normal gait, Normal speech, Normal strength at 5/5 x4 extr, Normal tone, Sensation intact, Cranial nerves 3-12 intact, Normal affect Lymphatics: No axilla or inguinal lymphadenopathy - Studies Laboratory Data (last 24 hrs) 05/11/19 00:57: PT Cancelled, INR Cancelled 05/11/19 00:57: WBC Cancelled, Hgb Cancelled, Hct Cancelled, Plt Count Cancelled 05/11/19 00:57: Sodium Cancelled, Potassium Cancelled, BUN Cancelled, Creatinine Cancelled, Glucose Cancelled, Magnesium Cancelled, Total Bilirubin Cancelled, AST Cancelled, ALT Cancelled, Alkaline Phosphatase Cancelled, Lipase Cancelled 05/11/19 00:50: PT 12.5, INR 1.06 05/11/19 00:50: WBC 9.5, Hgb 14.4, Hct 42.0, Plt Count 217 05/11/19 00:50: Sodium 133 L, Potassium 3.4 L, BUN 10, Creatinine 1.61 H, Glucose 597 H*, Magnesium 2.0, Total Bilirubin 0.5, AST 15, ALT 30, Alkaline Phosphatase 156 H Assessment & Plan - Problems (Diagnosis) (1) Chest pain, rule out acute myocardial infarction Current Visit: Yes Status: Acute (2) Acute CVA (cerebrovascular accident) Onset Date: 11/08/17 Current Visit: No Status: Acute (3) Gastroparesis Current Visit: No Status: Acute (4) History of CVA with residual deficit Current Visit: No Status: Acute (5) BPH (benign prostatic hyperplasia) Onset Date: 11/08/17 Current Visit: No Status: Chronic Qualifiers: (6) CAD (coronary artery disease) Onset Date: 11/08/17 Current Visit: No Status: Chronic (7) Carotid arterial disease Onset Date: 11/08/17 Current Visit: No Status: Chronic (8) DM neuropathy, type II diabetes mellitus Onset Date: 11/08/17 Current Visit: No Status: Chronic Qualifiers: (9) Depression Onset Date: 11/08/17 Current Visit: No Status: Chronic Qualifiers: (10) History of left common carotid artery stent placement Onset Date: 11/08/17 Current Visit: No Status: Chronic (11) History of pacemaker Onset Date: 11/08/17 Current Visit: No Status: Chronic (12) Hyperlipidemia Onset Date: 11/08/17 Current Visit: No Status: Chronic Qualifiers: (13) Hypertension Onset Date: 11/08/17 Current Visit: No Status: Chronic Qualifiers: (14) Hypothyroidism Onset Date: 11/08/17 Current Visit: No Status: Chronic Qualifiers: - Plan 1. Serial troponins and EKG 2. Cardiology consultation 3. Echocardiogram and stress test as an outpatient 4. Anti-platelet therapy, anti coagulation, beta-ulises, statin, and O2 as needed 5. IV morphine for pain 6. Outpatient when healing Center follow-up with Podiatry 7. GI and DVT prophylaxis Discharge Plan: Home Plan to discharge in: 48 Hours - Advance Directives Does patient have a Living Will: No Does patient have a Durable POA for Healthcare: No - Code Status/Comfort Care Code Status Assessed: Yes Code Status: Full Code Critical Care: No Time Spent Managing PTS Care (In Minutes): 45
[2019-05-11] MEDS: GABAPENTIN 100 MG CAP PO SCH ×3 (08:50→20:30)
[2019-05-11] MEDS: FAMOTIDINE 20 MG TAB PO SCH ×2 (08:50→20:30)
[2019-05-11] MEDS: TAMSULOSIN 0.4 MG SR CAP PO SCH (08:50)
[2019-05-11] MEDS: ENOXAPARIN 40 MG/0.4 ML SQ SCH (08:50)
[2019-05-11] MEDS: ATORVASTATIN 80 MG TAB PO SCH (08:50)
[2019-05-11] MEDS: TICAGRELOR 90 MG TABLET PO SCH ×2 (08:51→20:29)
[2019-05-11] MEDS: ASPIRIN EC 81 MG TAB PO SCH (08:51)
[2019-05-11] MEDS: METOPROLOL TAR 50 MG TAB PO SCH ×2 (08:51→20:31)
[2019-05-11] MEDS: INSULIN 70/30 100 UNITS/ML SQ SCH (08:52)
[2019-05-11] MEDS: AMLODIPINE 5 MG TAB PO SCH (08:52)
[2019-05-11] MEDS: lisinopriL 5 MG TAB PO SCH (08:53)
--- NOTE | 2019-05-11 09:09 | RAD REPORT ---
EXAM DESCRIPTION: Adrián Single View05/11/2019 1:18 am CLINICAL HISTORY: Chest pain COMPARISON: December 2018 FINDINGS: The lungs appear clear of acute infiltrate. The heart is mildly enlarged. Pacemaker leads are in place. IMPRESSION: No acute abnormalities displayed
[2019-05-11 11:19] LABS: Urine Appearance CLEAR; Urine Bilirubin NEGATIVE (NEG); Urine Blood NEGATIVE (NEG); Urine Color YELLOW; Urine Glucose 3+ (NEG); Urine Protein NEGATIVE (NEG); Urine Specific Gravity >=1.030 (1.005-1.030); Urine Urobilinogen 0.2 mg/dL (0.2-1.0); Urine pH 5.5 (5.0-7.0)
[2019-05-11 11:31] LABS: Barbiturates NEGATIVE (NEGATIVE); Benzodiazepines NEGATIVE (NEGATIVE); Cocaine NEGATIVE (NEGATIVE); METHAMPHETAM NEGATIVE (NEGATIVE); Methadone NEGATIVE (NEGATIVE); Opiates NEGATIVE (NEGATIVE); Phencyclidine NEGATIVE (NEGATIVE); THC Cannibis NEGATIVE (NEGATIVE)
[2019-05-11 11:36] LABS: Urine Bacteria <20 /HPF (NONE SEEN); Urine Culture Reflex Order NOT NEEDED; Urine RBC NONE SEEN /HPF (NONE SEEN)
--- NOTE | 2019-05-11 15:31 | EKG ---
Test Date: 2019-05-11 Test Time: 00:40:55 Chemicals Distiller: IRMA MEASUREMENT RESULTS: Intervals: Rate: 91 MS: 314 QRSD: 84 QT: 384 QTc: 472 [place]: P: 118 MS: 314 QRS: 2 T: 244 INTERPRETIVE STATEMENTS: Sinus rhythm with 1st degree AV block Inferior infarct, age undetermined Anterolateral infarct, age undetermined Abnormal ECG Compared to ECG 01/01/2019 18:16:08 First degree AV block now present Myocardial infarct finding now present Ventricular-paced complex(es) or rhythm no longer present Atrial-sensed ventricular-paced complex(es) or rhythm no longer present Electronically Signed On 05-11-19 15:30:41 LASERIST by Luca Royal
[2019-05-11 15:32] LABS: Albumin 3.2 g/dL (3.4-5.0); Bilirubin Total 0.6 mg/dL (0.2-1.0); Potassium 3.3 mmol/L (3.5-5.1); Protein, Total 6.4 g/dL (6.4-8.2)
[2019-05-11] MEDS ORDERED: ONDANSETRON 4 MG/2 ML VIAL IV PRN (15:53)
[2019-05-11] MEDS: ONDANSETRON 4 MG/2 ML VIAL IV SCH (16:20)
[2019-05-11] MEDS: ASPIRIN 81 MG CHEWABLE TABLET PO SCH (20:30)
--- NOTE | 2019-05-11 23:04 | CON ---
Date of Consultation: 05/11/[address] Murphy on 05/11/2019. I saw the patient on 05/11/2019. Reason For Consultation: Chest pain. History Of Present Illness: Mr. Rooney is a 58-year-old Latin-Irish male, has had history of C ABG before by Dr. Todd Chapman in [place], has a history of pacemaker as well for sick sinus syndr ome. He has diabetes, coronary artery disease, neuropathy, CVA, depression, fibromyalgia, benign pro static hypertrophy, dyslipidemia, hypertension, gastroesophageal reflux disease. Came in with subste rnal chest pressure radiating to both arms with nausea and vomiting and diaphoresis. Denied PND, ort hopnea, palpitations, or syncope. Symptoms have been intermittent since he came in. His creatinine was 1.61. His glucose was 280 now, it was 597 when he came in. His troponin is negative. Past Medical History: As stated above. Allergies: NONE. Review of Systems: Negative. Social History: Negative. Family History: Negative. Medications At Home: Aspirin, Lipitor, Norvasc, Pepcid, Brilinta, Prinivil, Flomax, insulin, Neuront in. Physical Examination: General: He was in no acute distress when I saw him, but he was very anxious about his chest pain. Vital Signs: He was in a paced rhythm. He was afebrile. HEENT: Negative. Neck: Supple with no bruit, lymphadenopathy, JVD, or thyromegaly. Chest: Clear to auscultation and percussion. Cardiac: Regular rhythm and rate. No murmurs, gallops, or rubs. Abdomen: Benign. Extremities: No clubbing, cyanosis, or edema. Diagnostic Data: As stated earlier. Impression And Plan: 1.Chest pain, history of coronary artery disease, status post CABG. Of interest is he had a normal echo and normal Lexiscan a year ago. But also few years ago Dr. Gordillo performed the catheterization and he found that he had actually normal coronaries and could not explain why the patient had CABG. Now, his symptoms are consistent with unstable angina. I will perform left heart catheterization on him to define his coronary anatomy on Monday. He understands the risk and the benefits of the proce dure and he agrees to proceed. We will give him some Mucomyst before and after the procedure because of his renal insufficiency. 2.Sick sinus syndrome, status post pacemaker, seems to be functioning well at this point. 3.Diabetes, very poorly controlled. 4.Neuropathy. 5.BPH. 6.Dyslipidemia, well controlled. 7.Hypertension. 8.Gastroesophageal reflux disease. 9.Depression. 10.Fibromyalgia. 11.History of cerebrovascular accident in the past. We will see what the catheterization shows on Alisson Rooney. Otherwise, meanwhile, I agree with his present regimen. Case was discussed with Dr. Jeff calix. GEOFF/VAMSHI Voice ID: [id number] Report ID: [id number]
[2019-05-12] MEDS: ONDANSETRON 4 MG/2 ML VIAL IV SCH ×3 (01:00→16:45)
[2019-05-12] MEDS: MORPHINE 4 MG/ML SYR IV PRN ×4 (03:21→20:22)
[2019-05-12 06:18] LABS: Absolute Lymphocytes (CBC) 2.1 K/uL (0.7-4.9); Basophils % 0.6 % (0-1.3); Hematocrit 37.9 % (39.6-49.0); Lymphocytes % 33.5 % (15.3-44.8); MPV 8.9 fL (7.6-11.3); RBC Red Blood Cell Count 4.28 M/uL (4.33-5.43)
[2019-05-12 06:38] LABS: Albumin 3.2 g/dL (3.4-5.0); Bilirubin Total 0.4 mg/dL (0.2-1.0); Potassium 3.9 mmol/L (3.5-5.1); Protein, Total 6.6 g/dL (6.4-8.2)
[2019-05-12] MEDS: HOME MED 1 EA UNK (Metoclopramide Hcl [Reglan] 10 MG) PO SCH ×3 (08:00→16:46)
[2019-05-12] MEDS: AMLODIPINE 5 MG TAB PO SCH (08:37)
[2019-05-12] MEDS: ASPIRIN EC 81 MG TAB PO SCH (08:37)
[2019-05-12] MEDS: ENOXAPARIN 40 MG/0.4 ML SQ SCH (08:38)
[2019-05-12] MEDS: GABAPENTIN 100 MG CAP PO SCH ×3 (08:38→20:27)
[2019-05-12] MEDS: TAMSULOSIN 0.4 MG SR CAP PO SCH (08:38)
[2019-05-12] MEDS: FAMOTIDINE 20 MG TAB PO SCH ×2 (08:39→20:27)
[2019-05-12] MEDS: lisinopriL 5 MG TAB PO SCH ×2 (08:39→20:28)
[2019-05-12] MEDS: ATORVASTATIN 80 MG TAB PO SCH (08:39)
[2019-05-12] MEDS: INSULIN 70/30 100 UNITS/ML SQ SCH (08:40)
[2019-05-12] MEDS: TICAGRELOR 90 MG TABLET PO SCH ×2 (08:40→20:27)
[2019-05-12] MEDS: METOPROLOL TAR 50 MG TAB PO SCH ×2 (08:41→20:28)
[2019-05-12 13:31] LABS: Potassium 3.7 mmol/L (3.5-5.1)
--- NOTE | 2019-05-12 14:45 | PN ---
Subjective: Currently, patient is lying in bed. He looks comfortable. He has no chest pain or shor tness of breath. No abdominal pain. No nausea or vomiting. He has not eaten breakfast this morning . He had mild chest pain earlier, but he was given pain medication and he is feeling better now. Objective: Vital Signs: Blood pressure 140/78, respiratory rate 16, pulse 71, temperature 97.7. He is saturating normal on room air. General: He is alert and oriented x3. Does not look in any distress. HEENT: Atraumatic, normocephalic. PERRLA. Oral mucosa is moist. Neck: Supple. No JVD. No carotid bruits. Chest: Clear to auscultation. Good air entry. Heart: Regular rate and rhythm. S1 normal. S2 normal. No gallop or murmur. Abdomen: Soft, nontender. No masses. No hepatosplenomegaly. Positive bowel sounds. Extremities: No clubbing, cyanosis, or edema. No calf tenderness noted. Neurologic: Exam grossly intact. Cranial nerves 2 through 12 intact. Normal sensation. Normal ref lexes. Normal muscle strength. Laboratory Data: Labs today showed CBC was normal except for hemoglobin of 13.2. Chemistry within n ormal limit except for BUN of 12, creatinine of 1.26, GFR 58, glucose 320, albumin 3.2. Cardiac enzymes were negative. Cholesterol showed triglyceride 174, LDL of 130, HDL of 34. Hemoglob in A1c still pending. Assessment And Plan: 1.Chest pain. Rule out myocardial infarction. Cardiac enzymes were negative, but Dr. Royal given concerning the patient's history of multiple risk factors wanted to proceed with cardiac cath in the morning. We will keep patient until tomorrow morning. 2.History of acute cerebrovascular accident. 3.Gastroparesis, stable. Patient has no nausea or vomiting. 4.History of benign prostatic hypertrophy. Patient on Flomax. Continue. 5.Uncontrolled diabetes. Hemoglobin A1c is pending. He is on insulin 70/30, 16 units. I will incr ease it to 20 units a day. 6.History of gastroparesis. Continue patient on Reglan t.i.d. with meals. 7.Hypertension, difficult to control. He is on lisinopril. Increase that to 5 mg instead of 2.5. Continue amlodipine at 5 mg and metoprolol 25 twice a day. 8.History of hyperlipidemia. He is on statin 80 mg with atorvastatin 80 mg daily. 9.Continue p.r.n. Xanax for anxiety. 10.Deep vein thrombosis prophylaxis. On Lovenox. 11.Hypokalemia yesterday. Will replace. 12.Discharge plan hopefully after catheterization if he is normal tomorrow. ABHISHEK/VAMSHI Voice ID: [id number] Report ID: [id number]
[2019-05-12] MEDS: ASPIRIN 81 MG CHEWABLE TABLET PO SCH (20:27)
[2019-05-13] MEDS: MORPHINE 4 MG/ML SYR IV PRN ×3 (00:36→09:01)
[2019-05-13] MEDS: ONDANSETRON 4 MG/2 ML VIAL IV SCH ×2 (00:37→09:02)
[2019-05-13 04:11] LABS: Absolute Lymphocytes (CBC) 1.9 K/uL (0.7-4.9); Basophils % 0.4 % (0-1.3); Hematocrit 39.3 % (39.6-49.0); MPV 9.1 fL (7.6-11.3); RBC Red Blood Cell Count 4.45 M/uL (4.33-5.43)
[2019-05-13 04:29] LABS: ALT/SGPT 61 U/L (12-78); AST/SGOT 41 U/L (15-37); Albumin 3.2 g/dL (3.4-5.0); Alkaline Phosphatase 171 U/L (45-117); BUN Blood Urea Nitrogen 11 mg/dL (7-18); Bicarbonate 32 mmol/L (21-32); Bilirubin Total 0.5 mg/dL (0.2-1.0); Glucose Level 314 mg/dL (74-106); Potassium 4.4 mmol/L (3.5-5.1); Protein, Total 6.7 g/dL (6.4-8.2); Sodium Level 142 mmol/L (136-145)
[2019-05-13] MEDS: TICAGRELOR 90 MG TABLET PO SCH (06:03)
[2019-05-13] MEDS: HOME MED 1 EA UNK (Metoclopramide Hcl [Reglan] 10 MG) PO SCH ×2 (08:00→11:26)
[2019-05-13] MEDS: ENOXAPARIN 40 MG/0.4 ML SQ SCH (08:33)
[2019-05-13] MEDS: GABAPENTIN 100 MG CAP PO SCH ×2 (08:46→14:13)
[2019-05-13] MEDS: ATORVASTATIN 80 MG TAB PO SCH (08:46)
[2019-05-13] MEDS: TAMSULOSIN 0.4 MG SR CAP PO SCH (08:46)
[2019-05-13] MEDS: lisinopriL 5 MG TAB PO SCH (08:47)
[2019-05-13] MEDS: AMLODIPINE 5 MG TAB PO SCH (08:47)
[2019-05-13] MEDS: FAMOTIDINE 20 MG TAB PO SCH (08:47)
[2019-05-13] MEDS ORDERED: INSULIN 70/30 100 UNITS/ML SQ SCH (09:00)
[2019-05-13] MEDS ORDERED: HEPA 1000U/500MLS 2,000 UNIT/1,000 ML BAG IV ONE (10:16)
[2019-05-13] MEDS ORDERED: MIDAZOLAM HCL 2 MG/2 ML INJ ONE (10:23)
[2019-05-13] MEDS ORDERED: NITROGLYCERIN 100 MCG/ML SYR (for cath lab use only) IV ONE (10:24)
[2019-05-13] MEDS ORDERED: ATROPINE SULF 1 MG/10 ML SYR IV ONE (10:24)
[2019-05-13] MEDS ORDERED: NA CHLORIDE 0.9% 50 ML ONE (10:24)
[2019-05-13] MEDS ORDERED: NITROGLYCERIN/D5W 0 MG/0 ML BTL IV ONE (10:24)
[2019-05-13] MEDS ORDERED: FENTANYL CITR 100 MCG/2 ML ONE (10:24)
--- NOTE | 2019-05-13 10:48 | PN ---
Date of Progress Note: 05/12/2019 Mr. Rooney has had a history of CAD, CABG, has multiple cardiac risk factors, came in with unstabl e angina type of symptoms. He ruled out for an [place], but continues to have intermittent chest pain brook t is substernal radiating to the neck and the arms with some nausea and diaphoresis. His pain is rel ieved with morphine and nitroglycerin. No arrhythmias noted. The patient is set up for a heart cath eterization on 05/13/2019. He understand the risk and the benefits of the procedure and he agrees to proceed. Decisions will be made after the catheterization. GEOFF/VAMSHI Voice ID: [id number] Report ID: [id number]
[2019-05-13] MEDS ORDERED: MIDAZOLAM HCL 5 MG/5 ML INJ ONE (10:52)
[2019-05-13] MEDS ORDERED: NA CHLORIDE 0.9% 500 ML ONE (10:58)
[2019-05-13 12:36] VITALS: O2SAT 99
[2019-05-13 13:35] VITALS: BP 140/78; TEMP 97.2
[2019-05-13] MEDS ORDERED: NITROGLYCERIN 0.4 MG/TAB SL PRN (14:00)
[2019-05-13] MEDS ORDERED: NA CHLORIDE 0.9% 1,000 ML IV SCH (14:00)
[2019-05-13] MEDS ORDERED: ACETAMINOPHEN 325 MG TABLET PO PRN (14:00)
--- NOTE | 2019-05-13 20:49 | EKG ---
Test Date: 2019-05-12 Test Time: 04:27:22 Rack Puller: RT-O MEASUREMENT RESULTS: Intervals: Rate: 81 TX: 274 QRSD: 80 QT: 386 QTc: 448 [place]: P: 52 TX: 274 QRS: -14 T: 64 INTERPRETIVE STATEMENTS: Sinus rhythm with 1st degree AV block Lateral infarct, age undetermined Inferior infarct, age undetermined ST & T wave abnormality, consider anterior ischemia Abnormal ECG Compared to ECG 05/11/2019 00:40:55 ST (T wave) deviation now present Possible ischemia now present Myocardial infarct finding still present Electronically Signed On 05-13-19 20:46:55 LIVESTOCK TRUCKER by Luca Royal
--- NOTE | 2019-05-13 22:12 | OP ---
Date of Procedure: 05/13/2019 Surgeon: Luca Royal MD Modern And Contemporary Art Curator: Elizabeth Penaloza. Admitted by Dr. Gaffney on 05/11/2019. Patient was brought to the produce laborer on 05/13/2019 because of uns table angina and history of CAD. Indications: Mr. Rooney is 59, presumably had open-heart surgery. He has a pacemaker, came in wi th chest pain consistent with unstable angina, brought to the produce laborer today as an inpatient. He und erwent a heart catheterization, selective coronary arteriography. He had an aortic root angiogram. Description Of Procedure: He was prepped and draped in the routine sterile fashion. 6-Italian sheath introduced in the right common femoral artery successfully. Angiography there showed patent common iliac artery and Angio-Seal was used to close the case. 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 No hemodynamic compr omise or symptoms. Stephanie catheter 6-Italian left and right were used to selectively cannulate the l eft main and the right main. He had vdnw-je-cfmbhvdk plaquing in the RCA proximal and mid. He had s evere diffuse disease very distally in the RCA and PDA territory. His circumflex was normal. He had some moderate disease in the 1st and 2nd diagonal. He had stent in the LAD, across all his diagonal s, and the stents in the LAD were open. I could not find any graft with a regular Stephanie catheter. A pigtail was advanced into the aortic root. Angiography there was done. It was evident there was no evidence of any grafts. I think they are all occluded. A NULL injection was done and found that the NULL to be atretic and closed. Complications: No complications. Blood Loss: 5 cc. Postoperative Diagnosis: Lycr-xj-mzirrqrp coronary artery disease. Plan: Plan is for medical therapy. Anesthesia: Total conscious sedation 30 minutes. Disposition: Patient will go home today. We will see him in the office in 2 weeks. GEOFF/VAMSHI Voice ID: [id number] Report ID: [id number]
--- NOTE | 2019-05-14 02:37 | DS ---
Date of Discharge: 05/13/2019 Consultants: Dr. Royal with Cardiology. Discharge Diagnoses: 1.Unstable angina, rule out acute coronary syndrome. 2.History of cerebrovascular accident. 3.Gastroparesis. 4.Benign prostatic hyperplasia. 5.Coronary artery disease. 6.Carotid artery disease. 7.Diabetes mellitus type 2 with neuropathy, insulin requiring. 8.Major depressive disorder. 9.History of left common carotid artery stent placement. 10.History of pacemaker. 11.Mixed hyperlipidemia. 12.Essential hypertension. 13.Hypothyroidism. 14.Hypokalemia and acute kidney injury. Hospital Course: Patient is a 59-year-old male with multiple chronic medical conditions including hy pertension, hyperlipidemia, history of CVA, peripheral vascular disease, coronary artery disease, who has had a CABG previously and multiple stents, comes in with chest pain. Patient was thought to hav e unstable angina. Patient was admitted to the hospital for further evaluation and workup to rule ou t ACS. Cardiac enzymes were minimally elevated at 0.03, 0.04. Lipid panel showed elevated triglycer ides and low HDL. The patient's blood sugar levels were not well controlled in 300s. His hemoglobin A1c is 11.5%, not well controlled. The patient's UDS was negative. He was seen by Dr. Royal and was recommended to undergo cardiac catheterization. Patient underwent cardiac catheterization. He d id not require any stents. Patient was then cleared for discharge from a Cardiology standpoint. His symptoms had improved. Patient will be added on Ranexa for his angina type symptoms. The patient r ecovered well from his cardiac catheterization. His symptoms improved. He was then discharged in a stable condition. The patient is to followup with his PCP in 2-3 days, follow up with his cardiologi st, Dr. Royal in 2 weeks. Return to ER for worsening condition. Physical Examination: GENERAL: Awake, alert, and oriented x3, not in any acute distress. CV: S1, S2. No murmurs. Respiratory: Moving air well bilaterally. No wheezing. Gastrointestinal: Abdomen is soft, nontender, nondistended. Positive bowel sounds. Extremities: No clubbing, cyanosis, or edema. Neurologic: Nonfocal. SA/MODL Voice ID: [id number] Report ID: [id number]
[2019-05-14] MEDS ORDERED: INSULIN 70/30 100 UNITS/ML SQ SCH (09:00)
== END 2019-05-13 15:17 | disposition home or self-care (01) ==
LOC: ER 00:35 → ERHOLD 02:15 → 4TH 03:23
PROVIDERS: ADMIT Hospitalist; ATTEND Hospitalist
DX: I25.110 Atherosclerotic heart disease of native coronary artery with unstable angina pectoris (principal); E11.43 Type 2 diabetes mellitus with diabetic autonomic (poly)neuropathy; K31.84 Gastroparesis; N40.0 Benign prostatic hyperplasia without lower urinary tract symptoms; I77.89 Other specified disorders of arteries and arterioles; E11.40 Type 2 diabetes mellitus with diabetic neuropathy, unspecified; F32.9 Major depressive disorder, single episode, unspecified; E78.2 Mixed hyperlipidemia; I10 Essential (primary) hypertension; E03.9 Hypothyroidism, unspecified; E87.6 Hypokalemia; N17.9 Acute kidney failure, unspecified; Z95.1 Presence of aortocoronary bypass graft; Z95.0 Presence of cardiac pacemaker; Z86.73 Personal history of transient ischemic attack (TIA), and cerebral infarction without residual deficits; Z95.5 Presence of coronary angioplasty implant and graft
CPT/HCPCS: 96361; 93005 ×2; 85025 ×3; 81001; 80048 ×2; 36415 ×3; 83735; 85610; 80061; 82947 ×12; 80076; 80307 ×8; 83036; 84484 ×3; 83690; 80053 ×3; 83880; 71045; 93567; 93454; 96375; 96372; 96374; 99285; C1893; C1760; J1650 ×3; J2250; J3010 ×2; G0378 ×6; J7040; J7030; J2405 ×7; J0583; J1815

== ENCOUNTER 2019-07-03 20:12 | Emergency (ER) | payer OTHER ==
--- OUTSIDE RECORDS SUMMARY | 2019-07-03 20:14 | XMS REPORT ---
:1960 Author [facility] Address [address] [place] [address] Care Team Providers Name Role Phone TERA [...] PHOSPHATASE TOTAL (test code=ALKP) 149 Unit/L 50-136 [id number] 18:02:00 Test Item Value Reference Range Comments AMYLASE (test code=SERGIO) 82 Unit/L 25-115 [id number] 18:02:00 Test Item Value Reference Range Comments LIPASE (test code=LIP) 185 Unit/L 114-286 COMPREHENSIVE METABOLIC [id number] 17:56:00 Test Item Value Reference Range Comments [...] ALKALINE PHOSPHATASE TOTAL (test code=ALKP) Unit/L 50-136 [id number] 17:56:00 Test Item Value Reference Range Comments AMYLASE (test code=SERGIO) Unit/L 25-115 [id number] 17:56:00 Test Item Value Reference Range Comments LIPASE (test code=LIP) 185 Unit/L 114-286 CBC W/AUTO [id number] 17:46:00 Test Item Value Reference Range Comments [...] DIFF/SCN CRITERIA - CT ABD PELVIS W/O [id number] 17:46:00 Name: FAITH VANCE [facility]ly [facility] : 1960 Age/S: 58 / M [address] [address] [place] Unit #: [id number] Loc: [place] [address] Phys: Nila Chester MD Acct: [id number] Dis Date: Status : REG ER PHONE #: [phone] Exam Date: 01/03/2019 1734 FAX #: Reason: llq EXAMS: CPT: [id number] CT ABD PELVIS W/O CONT 24755 Location ofdictation: B2 CT abdomen and pelvis [...] Report ( CONTINUED) Name: FAITH VANCE Formerly [facility] : [birth year] Age/S: 58 / M [address] [facility] [place] Unit #: [id number] Loc : [place] [address] Phys: Rochelle Chester MD Acct: [id number] Dis Date: Status: REG ER PHONE #: [phone] Exam Date: 01/03/2019 1737 FAX #: Reason: llq EXAMS: CPT: [id number] CT ABD PELVIS W/O CONT 52139 < Continued> at 1746 Reported and signed by: Renuka Willett M.D. CC: Nila Chester MD Technologist:RT Kevin(R)(CT )(MRI) CTDI: DLP: Trnscb Date/Time: 01/03/2019 (0615) [email or web address] Orig Print D/T: S: 01/03/2019 (6870) PAGE 2 Signed ReportCTA BRAIN [place] [address] Patient Name: FAITH VANCE MR #: [id number] : 1960 Age/Sex: 57/M Req #: [id number] Adm Physician: TERA COX MD Ordered by: TERA COX MD Report # : [id number] Location: [facility] Room/Bed: [place] [address] Procedure: [id number] CT/CTA BRAIN Exam Date: 10/24/17 Exam Time: 1481 REPORT STATUS: Signed Intracranial CTA History : [...] COPY TO: TERA COX MDCT BRAIN WO [place] [address] Patient Name: FAITH VANCE MR #: [id number] : 1960 Age/Sex: 57/M Req #: [id number] Adm Physician: Ordered by: ARLETH WAHL MD Report #: [id number] Location: ER Room/Bed: Procedure: [id number] CT/CT BRAIN WO Exam Date: 10/23/17 Exam [...] 10/23/17 1643 [facility] [place] [address] Patient Name: FAITH VANCE MR #: [id number] : 1959 Age/Sex: 57/M Req #: [id number] Adm Physician: Ordered by: ARLETH WAHL MD Report #: [id number] Location: Room/Bed : Procedure: [id number] CT/CTA CHEST Exam Date: 10/23 Exam Time: [...] reviewed and is below limits set by [facility]). FINDINGS: Lines and Tubes: Pacemaker [...] 4:21 PM Dictated By: OREN IRIZARRY MD [id number] Transcribed By: ANDREE on 10/23/17 1621 [facility] [place] [address] Patient Name: FAITH VANCE MR #: [id number] : 1960 Age/Sex: 57/M Req #: [id number] Adm Physician: Ordered by: ARLETH WAHL MD Report #: [id number] Location: ER Room/Bed: Procedure: [id number] DX/CHEST SINGLE (PORTABLE) Exam Date: 10/23/17 Exam [...] TO: ARLETH WAHL V MDCT BRAIN WO [place] [address] Patient Name: FAITH VANCE MR #: [id number] : 1960 Age/Sex: 56/M Req #: [id number] Adm Physician: Ordered by: JACQUELYN MONTES DE OCA MD Report #: [id number] Location: ER Room/Bed: Procedure: 1114- 0001 CT/CT [...] MONTES DE OCA MDCT CERVICAL SPINE WO [place] [address] Patient Name: FAITH VANCE MR #: [id number] : 1960 Age/Sex: 56/M Req #: [id number] Adm Physician : Ordered by: JACQUELYN MONTES DE OCA MD Report #: [id number] Location: ER Room/ Bed: Procedure: [id number] CT/CT CERVICAL SPINE WO Exam Date: Exam [...] 04/04/17206 COPY TO: JACQUELYN MONTES DE OCA [facility] [address] [place], [place] [address] Patient Name: FAITH VANCE MR #: [id number] : 1960 Age/Sex: 56/M Req #: [id number] Adm Physician : Ordered by: JACQUELYN MONTES DE OCA MD Report #: [id number] Location: ER Room/ Bed: Procedure: [id number] DX/CHEST SINGLE (PORTABLE) Exam Date: 04/04/17 Exam [...] OCA MDHIP RIGHT 2-3 VW (+/- PELVIS) [place] [address] Patient Name: FAITH VANCE MR #: [id number] : 1960 Age/Sex: 56/M Req #: [id number] Adm Physician: Ordered by: JACQUELYN MONTES DE OCA MD Report #: [id number] Location: ER Room/Bed: Procedure: 6 DX/HIP RIGHT [...] DE OCA MDSP LUMBAR, COMPLETE MIN 4VW [place] [address] Patient Name: FAITH VANCE MR #: [id number] : 1960 Age/Sex: 56/M Req # : [id number] Adm Physician: Ordered by: JACQUELYN MONTES DE [...] JACQUELYN MONTES DE OCA MDUS ABDOMEN COMPLETE [place] [address] Patient Name: FAITH VANCE MR #: [id number] : 1960 Age/Sex: 56/M Req #: [id number] Adm Physician: NICHELLE PALACIOS MD Ordered by: SCOTT AMIN MD Report #: [id number] Location: [facility] Room/Bed: [place] [address] _ Procedure: [id number] US/US ABDOMEN COMPLETE Exam Date: 03/08/17 Exam [...] on 03/08/17 1040 COPY TO: [facility] [place] [address] Patient Name: FAITH VANCE MR #: [id number] : 1960 Age/Sex: 56/M Req #: [id number] Adm Physician: Ordered by: JACQUELYN MONTES DE OCA MD Report #: [id number] Location: ER Room/Bed: Procedure: [id number] DX/CHEST SINGLE (PORTABLE) Exam Date: 03/05/17 Exam [...]
--- OUTSIDE RECORDS SUMMARY | 2019-07-03 20:18 | XMS REPORT | Summary of Care ---
:1960 Author Organization [facility] Address [address] [place] [address] Care Team Providers Name Role Phone Mario Nika Simmons Primary Care Provider Linda Mahan Insurance Hmo Reason for Visit Reason Comments Transition Of Care Encounter Details Date Type Department Care Team Description 06/27/2019 Transition of Care [facility] Gilda French Transition Of Care [facility] RN [phone] Allergies No Known Allergiesdocumented as of this encounter (statuses as of 06/28/2019) Medications Medication Sig Dispensed Refills Start Date End Date Status venlafaxine 75 mg Take 75 mg by mouth 0 Active tablet 2 (two) times daily. levothyroxine 50 mcg Take 50 mcg by 0 Active tablet mouth every morning. nitroglycerin 0.[address] 1 tablet 1 Bottle 0 09/19/2018 Active sublingual under the tongue tabletIndications: every 5 (five) Chest pain, minutes as needed unspecified type for Chest pain. insulin regular human inject 6 Units 10 Vial 5 10/02/2018 Active 100 unit/mL under the skin 2 injectionIndications: (two) times daily Left-sided weakness before breakfast and dinner. HYDROcodone-acetamino Take 1 tablet by 24 tablet 0 02/14/2019 Active phen (NORCO) 5-325 mg mouth every 6 (six) tabletIndications: hours as needed for Abdominal pain, Pain (scale 7-10). unspecified abdominal location metoclopramide HCl 10 Take 10 mg by mouth 0 Active mg tablet before meals. insulin NPH 100 Inject SQ 16u qam 10 Vial 5 04/11/2019 Active unit/mL and 14u qpm injectionIndications: Left-sided weakness atorvastatin 80 mg Take 1 tablet by 30 tablet 11 06/26/2019 Active tabletIndications: mouth at bedtime. Unstable angina pectoris ticagrelor 90 mg Take 1 tablet by 60 tablet 11 06/26/2019 Active tabletIndications: mouth 2 (two) times Unstable angina daily. pectoris apixaban 5 mg Take 1 tablet by 60 tablet 11 06/26/2019 Active tabletIndications: mouth 2 (two) times atrial fibrillation daily. Indications: atrial fibrillation apixaban 5 mg Take 1 tablet by 60 tablet 0 06/26/2019 Active tabletIndications: mouth 2 (two) times atrial fibrillation daily. Indications: atrial fibrillation aspirin 81 mg Take 1 tablet by 30 tablet 11 06/26/2019 Active chewable mouth at bedtime. tabletIndications: Unstable angina pectoris pantoprazole 20 mg EC Take 1 tablet by 30 tablet 1 06/26/2019 Active tabletIndications: mouth daily. 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 NSTEMI (non-ST elevated myocardial infarction) 01/24/2019 Coronary artery disease involving anvik coronary artery of anvik heart 01/17 with angina pectoris Type 2 diabetes mellitus without complication, without long-term current 01/17 use of insulin Essential hypertension 01/17/2019 Other hyperlipidemia 01/17/2019 Stroke 09/30/2018 Left-sided weakness 09/29/2018 Left sided numbness 09/29/2018 S/P admn tPA in diff fac w/n last 24 hr bef adm to crnt fac 08/30/2018 Unstable angina 08/29/2018 Chest pain 07/13/2018 documented as of this encounter (statuses as of 06/28/2019) Immunizations Name Administration Dates Next Due Influenza Virus Vaccine 02/18/2018 Pneumococcal Polysaccharide, PPSV23 (PNEUMOVAX) 02/18/2018 Td 03/29/2019 documented as of this encounter Social History Tobacco Use Types Packs/Day Years Used Date Former Smoker Cigarettes Quit: 2015 Smokeless Tobacco: Never Used Comments: quit 4 years ago Alcohol Use Drinks/Week oz/Week Comments No 12 Cans of beer 12.0 quit drinking 2013 (only drank socially before) Sex Assigned at Date Recorded Not on file Job Start Date Occupation Industry Not on file Not on file Not on file Travel History Travel Start Travel End No recent travel history available. documented as of this encounter Last Filed Vital Signs Not on filedocumented in this encounter Plan of Treatment Health Maintenance Due Date Last Done Comments EYE EXAM 1968 URINE MICROALBUMIN 1968 DTaP,Tdap,and Td Vaccines (1 - 1969 03/29/2019 Tdap) COLONOSCOPY 2008 Zoster Recombinant Vaccine 2008 (SHINGRIX) (1 of 2) LUNG CANCER SCREEN: Recommended 2013 for age 55-80 with 30 + pack year history INFLUENZA VACCINE (#1) 2019 02/18/2018 FOOT EXAM 08/29/2019 08/28/2018, 08/28/2018 HgA1C 12/23/2019 06/24/2019, 01/17/2019, 08/29/2018, Additional history exists LDL-C 02/14/2020 02/13/2019, 09/29/2018, 09/18/2018, Additional history exists CREATININE (SERUM) 06/26/2020 06/26/2019, 06/25/2019, 06/24/2019, Additional history exists PNEUMOCOCCAL 0-64 YEARS COMBINED Completed 02/18/2018 SERIES HEPATITIS C (HCV) SCREEN Completed 08/29/2018 documented as of this encounter Implants Implanted Type Area Director Food [employer] Bever[employer] Device Shelf Model / Identifier Expiration Date Serial / Lot [employer] PACEMAKER [id number] / Assurity [id number] / Pacemaker Metal Bar-05/22/1994 Back Implanted: 05/22/1994 (Quantity not on file) Metal Bar-05/22/2002 Arm Implanted: 05/22/2002 (Quantity not on file) documented as of this encounter Results Not on filedocumented in this encounter Insurance Payer Benefit Plan / Subscriber ID Effective Dates Phone Address Type Group [employer] [id number] 2018-Present Medicare Adv spring HMO documented as of this encounter Advance Directives Name Relationship Healthcare Agent Communication Relationship Rose Desouza Mother Primary healthcare agent
--- OUTSIDE RECORDS SUMMARY | 2019-07-03 20:18 | XMS REPORT | Summary of Care ---
:1960 Author Organization [facility] Address [address] [place] [id number] Care Team Providers Name Role Phone Mario Nika Simmons Primary Care Provider Linda Mahan Insurance Hmo Reason for Visit Reason Comments Transition Of Care Encounter Details Date Type Department Care Team Description 07/01/2019 Transition of Care [facility]ilda French [facility] [phone] Allergies No Known Allergiesdocumented as of this encounter (statuses as of 07/01/2019) Medications Medication Sig Dispensed Refills Start Date [...] as of this encounter (statuses as of 07/01/2019) Active Problems Problem Noted Date Pacemaker malfunction 06/25/2019 Cellulitis 04/09/2019 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 NSTEMI (non-ST elevated myocardial infarction) 01/24/2019 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 Type 2 diabetes mellitus without complication, without long-term current 01/17 use of insulin Essential hypertension 01/17/2019 Other hyperlipidemia 01/17/2019 Stroke 09/30/2018 Left-sided weakness 09/29/2018 Left sided numbness 09/29/2018 S/P admn tPA in diff fac w/n last 24 hr bef adm to crnt fac 08/30/2018 Unstable angina 08/29/2018 Chest pain 07/13/2018 documented as of this encounter (statuses as of 07/01/2019) Immunizations Name Administration Dates Next Due Influenza [...] of this encounter Implants Implanted Type Area Club Manager Device Shelf Model / Identifier Expiration Date Serial / Lot [employer] Apollo PACEMAKER [id number] / Assurity [id number] / Pacemaker Metal Bar-05/22/1994 Back Implanted: 05/22/1994 (Quantity not on file) Metal Bar-05/22/2002 Arm Implanted: 05/22/2002 (Quantity not on file) documented as of this encounter Results Not on filedocumented in this encounter Insurance Payer Benefit Plan / Subscriber ID Effective Dates Phone Address Type Group [id number] [id number] 2018-Present Medicare Adv spring HMO documented as of this encounter Advance Directives Name Relationship Healthcare Agent Communication Relationship Rose Desouza Mother Primary healthcare agent
--- OUTSIDE RECORDS SUMMARY | 2019-07-03 20:18 | XMS REPORT | Summary of Care ---
:1960 Author Organization [facility] - [facility] Address [address] [place] [id number] Care Team Providers Name Role Phone Mario Nika Simmons Primary Care Provider Linda Mahan Insurance Hmo Reason for Visit Reason Comments Transition Of Care Encounter Details Date Type Department Care Team Description 07/03/2019 Transition of Care 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 Type 2 diabetes mellitus without complication, without long-term current 01/17 use of insulin Essential hypertension 01/17/2019 Other hyperlipidemia 01/17/2019 Stroke 09/30/2018 Left-sided weakness 09/29/2018 Left sided numbness 09/29/2018 S/P admn tPA in diff fac w/n last 24 hr bef adm to crnt fac 08/30/2018 Unstable angina 08/29/2018 Chest pain 07/13/2018 documented as of this encounter (statuses as of 07/03/2019) Immunizations Name Administration Dates Next Due Influenza [...] of this encounter Implants Implanted Type Area Yarn Carrier Device Shelf Model / Identifier Expiration Date Serial / Lot St[employer] PACEMAKER [id number] / Assurity [id number] / Pacemaker Metal Bar-05/22/1994 Back Implanted: 05/22/1994 (Quantity not on file) Metal Bar-05/22/2002 Arm Implanted: 05/22/2002 (Quantity not on file) documented as of this encounter Results Not on filedocumented in this encounter Insurance Payer Benefit Plan / Subscriber ID Effective Dates Phone Address Type Group [place] [id number] 2018-Present Medicare Adv [place] HMO documented as of this encounter Advance Directives Name Relationship Healthcare Agent Communication Relationship Rose Desouza Mother Primary healthcare agent
--- OUTSIDE RECORDS SUMMARY | 2019-07-03 20:18 | XMS REPORT | Summary of Care ---
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 PACEMAKER [id number] / Assurity [id number] / Pacemaker Metal Bar-05/22/1994 Back Implanted: 05/22/1994 (Quantity not on file) Metal Bar-05/22/2002 Arm Implanted: 05/22/2002 (Quantity not on file) documented as of this encounter Results Not on filedocumented in this encounter Insurance Payer Benefit Plan / Subscriber ID Effective Dates Phone Address Type Group [employer] [id number] 2018-Present Medicare Adv [place] HMO documented as of this encounter Advance Directives Name Relationship Healthcare Agent Communication Relationship Rose Desouza Mother Primary healthcare agent
[2019-07-03 21:07] LABS: Absolute Lymphocytes (CBC) 1.6 K/uL (0.7-4.9); Basophils % 0.7 % (0-1.3); Hematocrit 30.7 % (39.6-49.0); Lymphocytes % 25.6 % (15.3-44.8); MPV 8.5 fL (7.6-11.3); RBC Red Blood Cell Count 3.42 M/uL (4.33-5.43)
[2019-07-03] MEDS ORDERED: ONDANSETRON 4 MG/2 ML VIAL ONE (21:17)
[2019-07-03] MEDS ORDERED: NA CHLORIDE 0.9% 1,000 ML ONE (21:17)
[2019-07-03 21:51] LABS: Albumin 3.2 g/dL (3.4-5.0); Bilirubin Direct 0.1 mg/dL (0-0.2); Bilirubin Total 0.3 mg/dL (0.2-1.0); Potassium 4.2 mmol/L (3.5-5.1); Protein, Total 6.6 g/dL (6.4-8.2)
[2019-07-03] MEDS ORDERED: MEPERIDINE HCL 25 MG/0.5 ML ONE (23:25)
--- NOTE | 2019-07-04 00:20 | ER ---
Nurse's Notes [facility] Name: Ernie Rooney Age: 59 yrs Sex: Male : 1960 Arrival Date: 07/03/2019 Time: 20:15 Bed 16 Private MD: Diagnosis: Generalized abdominal pain;Other specified diabetes mellitus with diabetic polyneuropathy;Hyperglycemia, unspecified Presentation: 07/03 20:23 Presenting complaint: Patient states: I have been having upper abdominal pain for 9 ca1 months already. It has gotten worse, and hard on both upper sides now. They were supposed to do surgery 4 months ago but my sugar was high so they cancelled. Also, I stepped on a thumbtack 3 months ago, it has not healed until now. It is giving me sharp pain on my L foot. Transition of care: patient was not received from another setting of care. Onset of symptoms was July 03, 2019. Risk Assessment: Do you want to hurt yourself or someone else? Patient reports no desire to harm self or others. Initial Sepsis Screen: Does the patient meet any 2 criteria? No. Patient's initial sepsis screen is negative. Does the patient have a suspected source of infection? No. Patient's initial sepsis screen is negative. Care prior to arrival: None. 20:23 Method Of Arrival: Ambulatory ca1 20:23 Acuity: TONE 3 ca1 Triage Assessment: 21:02 General: Appears uncomfortable, ill, Behavior is calm, cooperative. Pain: Complains of ls4 pain in right upper quadrant and left upper quadrant Pain currently is 9 out of 10 on a pain scale. Neuro: Level of Consciousness is awake, alert, obeys commands, Oriented to person, place, time, situation, Weakness in left leg(s) Gait is unsteady, Speech is normal, Facial symmetry appears normal, Pupils are PERRLA, paresthesias in right foot, left foot, right leg and left leg Reports. Cardiovascular: Denies chest pain, Capillary refill < 3 seconds Patient's skin is warm and dry. Edema is absent. GI: Abdomen is non-distended, obese, Last BM was July 03, 2019. Bowel sounds present X 4 quads. Abd is soft Abdomen is tender to palpation in right upper quadrant and left upper quadrant Reports Pain is 9 out of 10 on a pain scale. Patient currently denies intolerance of fluids, intolerance of food, nausea. : Denies inability to void. Derm: Wound noted medial aspect of left heel Wound is QUARTER SIZE, NO DRAINAGE, SOME TUNNELLING AROUND EDGE. YELLOW ESCHAR. Musculoskeletal: Circulation, motion, and sensation intact. Capillary refill < 3 seconds, Swelling absent. Historical: - Allergies: 20:29 NKA; ca1 - PMHx: 20:29 Arthritis; Back pain; CVA; Depression; Diabetes - NIDDM; Fibromyalgia; GERD; High ca1 Cholesterol; Hyperlipidemia; Hypertension; Hypothyroidism; Left sided weakness from previous CVA; Myocardial infarction; - PSHx: 20:29 CABG; Heart stents; Pacemaker/Defibrillator; ca1 - Immunization history:: Adult Immunizations up to date, Pneumococcal vaccine is up to date, Flu vaccine is up to date. - Coronavirus screen:: The patient has NOT traveled to [place] in the past 14 days. The patient has NOT had contact with known/suspected case of Coronavirus?. - Social history:: Smoking status: Patient/guardian denies using tobacco, the patient reports quitting approximately 5 years ago. - Family history:: not pertinent. - Ebola Screening: : Patient negative for fever greater than or equal to 101.5 degrees Fahrenheit, and additional compatible Ebola Virus Disease symptoms Patient denies exposure to infectious person Patient denies travel to an Ebola-affected area in the 21 days before illness onset No symptoms or risks identified at this time. - Hospitalizations: : No recent hospitalization is reported. Screenin:32 Abuse screen: Denies threats or abuse. Denies injuries from another. Nutritional ls4 screening: No deficits noted. Tuberculosis screening: No symptoms or risk factors identified. Fall Risk None identified. Assessment: 20:30 General: see triage . ls4 21:30 Reassessment: Patient appears in no apparent distress at this time. No changes from ls4 previously documented assessment. Patient and/or family updated on plan of care and expected duration. Pain level reassessed. Patient is alert, oriented x 3, equal unlabored respirations, skin warm/dry/pink. 22:30 Reassessment: Patient appears in no apparent distress at this time. No changes from ls4 previously documented assessment. Patient and/or family updated on plan of care and expected duration. Pain level reassessed. Patient is alert, oriented x 3, equal unlabored respirations, skin warm/dry/pink. 23:30 Reassessment: Patient appears in no apparent distress at this time. No changes from ls4 previously documented assessment. Patient and/or family updated on plan of care and expected duration. Pain level reassessed. Patient is alert, oriented x 3, equal unlabored respirations, skin warm/dry/pink. Vital Signs: 20:29 BP 92 / 69; Pulse 90; Resp 19 S; Temp 97.5(TE); Pulse Ox 100% on R/A; Weight 61.23 kg ca1 (R); Height 5 ft. 7 in. (170.18 cm) (R); Pain 9/10; 21:30 BP 148 / 82; Pulse 85; Resp 18; Temp 97.8; Pulse Ox 100% on R/A; Pain 9/10; ls4 22:30 BP 142 / 71; Pulse 84; Resp 14; Pulse Ox 99% on R/A; Pain 9/10; ls4 23:20 BP 148 / 84; Pulse 85; Resp 16; Pulse Ox 99% on R/A; Pain 9/10; ls4 07/04 00:22 BP 120 / 63; Pulse 75; Resp 16; Pulse Ox 100% on R/A; Pain 5/10; ls4 02 20:29 Body Mass Index 21.14 (61.23 kg, 170.18 cm) ca1 ED Course: 07/03 20:15 Patient arrived in ED. ag3 20:27 Triage completed. ca1 20:29 Arm band placed on right wrist. ca1 20:30 Chelsy Krause, RN is Primary Nurse. ls4 20:32 Hawk Parrish MD is Attending Physician. rn 20:32 Patient has correct armband on for positive identification. Placed in gown. Bed in low ls4 position. Call light in reach. Side rails up X 1. Pulse ox on. NIBP on. Verbal reassurance given. 20:32 No provider procedures requiring assistance completed. ls4 20:50 Inserted saline lock: 20 gauge in right forearm, using aseptic technique. Blood wh collected. 21:27 CBC with Diff Sent. ls4 21:27 Creatinine for Radiology Sent. ls4 21:27 Hepatic Function Sent. ls4 21:27 Lipase Sent. ls4 07/04 00:35 Urine Dipstick--Ancillary (enter results) Sent. ls4 00:37 IV discontinued, intact, bleeding controlled, No redness/swelling at site. Pressure ls4 dressing applied. Administered Medications: 07/03 21:17 Drug: NS 0.9% 1000 ml Route: IV; Rate: 1000 ml; Site: left forearm; ls4 21:17 Drug: Zofran 4 mg Route: IVP; Site: left forearm; ls4 21:26 Follow up: Response: No adverse reaction ls4 23:25 Drug: Demerol 25 mg Route: IVP; Site: left forearm; ls4 23:48 Follow up: Response: No adverse reaction; Pain is decreased ls4 Outcome: 07/04 00:17 Discharge ordered by . rn 00:35 Discharged to home ambulatory. ls4 00:35 Condition: stable 00:35 Discharge instructions given to patient, family. 00:38 Patient left the ED. ls4 Addendum: 07/08/2019 16:57 Addendum: Other normal saline completed at 2218. 1000 ml infused. l s4 Signatures: Hawk Parrish MD MD rn Yoandy Sauer Alice ag3 Chelsy Krause RN RN ls4 Tali Lim RN RN ca1
--- NOTE | 2019-07-04 00:23 | EDPHYS ---
Physician Documentation [facility] Name: Ernie Rooney Age: 59 yrs Sex: Male : 1960 Arrival Date: 07/03/2019 Time: 20:15 Bed 16 Private MD: ED Physician Hawk Parrish HPI: 07/03 20:40 This 59 yrs old Male presents to ER via Ambulatory with complaints of rn Abdominal Pain, Foot Pain. 20:40 The patient presents with abdominal pain in the upper abdomen, that is diffuse. Onset: rn The symptoms/episode began/occurred 9 month(s) ago. The symptoms do not radiate. Associated signs and symptoms: Pertinent positives: nausea and vomiting, anorexia, Pertinent negatives: blood in stools, fever, hematuria, shortness of breath, vomiting blood. The symptoms are described as achy, crampy, intermittent. Modifying factors: The symptoms are alleviated by nothing, the symptoms are aggravated by movement, touching the area. Severity of pain: At its worst the pain was moderate in the emergency department the pain is unchanged. The patient has experienced similar episodes in the past, chronically. The patient has not recently seen a physician. Reports diffuse abd pain, assoc with nausea, reports has been having intermittent abd pain for 9 months, got worse over last 3 days, no blood in stool. Reports swelling to left and right sides of abdomen. No urinary symptoms. Also reports pain to left foot, 3 month old chronic wound after stepping on thumbtacks, no drainage or purulence from wound, states neuropathy getting worse and now right foot hurts as well. Reports taking insulin and glucose still 300s-500s. . Historical: - Allergies: 20:29 NKA; ca1 - PMHx: 20:29 Arthritis; Back pain; CVA; Depression; Diabetes - NIDDM; Fibromyalgia; GERD; High ca1 Cholesterol; Hyperlipidemia; Hypertension; Hypothyroidism; Left sided weakness from previous CVA; Myocardial infarction; - PSHx: 20:29 CABG; Heart stents; Pacemaker/Defibrillator; ca1 - Immunization history:: Adult Immunizations up to date, Pneumococcal vaccine is up to date, Flu vaccine is up to date. - Coronavirus screen:: The patient has NOT traveled to [place] in the past 14 days. The patient has NOT had contact with known/suspected case of Coronavirus?. - Social history:: Smoking status: Patient/guardian denies using tobacco, the patient reports quitting approximately 5 years ago. - Family history:: not pertinent. - Ebola Screening: : Patient negative for fever greater than or equal to 101.5 degrees Fahrenheit, and additional compatible Ebola Virus Disease symptoms Patient denies exposure to infectious person Patient denies travel to an Ebola-affected area in the 21 days before illness onset No symptoms or risks identified at this time. - Hospitalizations: : No recent hospitalization is reported. ROS: 20:40 Constitutional: Negative for fever, chills, and weight loss, Eyes: Negative for injury, rn pain, redness, and discharge, Cardiovascular: Negative for chest pain, palpitations, and edema, Respiratory: Negative for shortness of breath, cough, wheezing, and pleuritic chest pain, Abdomen/GI: Negative for diarrhea, and constipation, Back: Negative for injury and pain, MS/Extremity: Negative for injury and deformity, Skin: Negative for injury, rash, and discoloration, Neuro: Negative for headache, weakness, and seizure. Exam: 20:40 Constitutional: Overweight male, able to get into bed himself, looks to be in poor rn general health Head/Face: Normocephalic, atraumatic. ENT: dry MM Cardiovascular: Regular rate and rhythm. No pulse deficits. Respiratory: Speaking full sentences. No increased work of breathing, no retractions or nasal flaring. Abdomen/GI: soft, + diffuse abd tenderness, no rebound MS/ Extremity: Pulses diminished but equal bilateral lower ext, no cyanosis. Neurovascular intact. + left inner heel with 1cm circular chronic wound, no purulence/fluctuance/warmth/erythema. Neuro: Awake and alert, GCS 15, oriented to person, place, time, and situation. Cranial nerves II-XII grossly intact. Motor strength 5/5 in all extremities. Sensory grossly intact. Cerebellar exam normal. Normal gait. Vital Signs: 20:29 BP 92 / 69; Pulse 90; Resp 19 S; Temp 97.5(TE); Pulse Ox 100% on R/A; Weight 61.23 kg ca1 (R); Height 5 ft. 7 in. (170.18 cm) (R); Pain 9/10; 21:30 BP 148 / 82; Pulse 85; Resp 18; Temp 97.8; Pulse Ox 100% on R/A; Pain 9/10; ls4 22:30 BP 142 / 71; Pulse 84; Resp 14; Pulse Ox 99% on R/A; Pain 9/10; ls4 23:20 BP 148 / 84; Pulse 85; Resp 16; Pulse Ox 99% on R/A; Pain 9/10; ls4 07/04 00:22 BP 120 / 63; Pulse 75; Resp 16; Pulse Ox 100% on R/A; Pain 5/10; ls4 07/03 20:29 Body Mass Index 21.14 (61.23 kg, 170.18 cm) ca1 MDM: 07/03 20:32 Patient medically screened. rn 23:44 Differential diagnosis: bowel obstruction, diverticulitis, gastritis, gastroesophageal rn reflux disease, non-specific abd pain, pancreatitis, Peptic Ulcer Disease, Ureterolithiasis. 23:55 Data reviewed: vital signs, nurses notes, lab test result(s), radiologic studies, CT rn scan, and as a result, I will discharge patient. Counseling: I had a detailed discussion with the patient and/or guardian regarding: the historical points, exam findings, and any diagnostic results supporting the discharge/admit diagnosis, lab results, radiology results, the need for outpatient follow up, to return to the emergency department if symptoms worsen or persist or if there are any questions or concerns that arise at home. Medical screen evaluation completed. [facility] emergency medical condition absent. Response to treatment: the patient's symptoms have mildly improved after treatment, and as a result, I will discharge patient. Special discussion: Based on the patient's Hx, exam, and Dx evaluation, there is no indication for emergent surgery or inpatient Tx. It is understood by the patient/guardian that if the Sx's persist or worsen they need to return immediately for re-evaluation. I discussed with the patient/guardian in detail that at this point there is no indication for admission to the hospital. It is understood, however, that if the symptoms persist or worsen the patient needs to return immediately for re-evaluation. ED course: Chronic complaints without any acute findings, recommend stricter glucose control and pcp f/u. CT abd no acute findings. . 07/04 00:16 ED course: Pt states plans to f/u with GI and pcp. Already on 900 gabapentin. Return rn precautions given and understood.. 07/03 20:39 Order name: CBC with Diff rn 07/03 20:39 Order name: Creatinine for ip attorney 07/03 20:39 Order name: Hepatic Function rn 07/03 20:39 Order name: Lipase rn 07/03 21:14 Order name: CBC with Automated Diff; Complete Time: 22:07 EDMS 07/03 20:40 Order name: CT Abd/Pelvis - PO and IV Contrast rn 07/03 21:18 Order name: Basic Metabolic Panel ls4 07/03 21:20 Order name: Glucose, Ancillary Testing; Complete Time: 22:07 EDMS 07/03 21:55 Order name: Creatinine (Radiology Only); Complete Time: 22:07 EDMS 07/03 21:55 Order name: Basic Metabolic Panel; Complete Time: 22:07 EDMS 07/03 21:55 Order name: Liver (Hepatic) Function; Complete Time: 22:07 EDMS 07/03 21:55 Order name: Lipase; Complete Time: 22:07 EDMS 07/04 00:13 Order name: Urine Dipstick--Ancillary (enter results) mt 07/03 20:39 Order name: IV Saline Lock; Complete Time: 21:00 rn 07/03 20:39 Order name: Labs collected and sent; Complete Time: 21:01 rn 07/03 20:40 Order name: Glucose Level; Complete Time: 21:07 rn 07/03 23:44 Order name: Urine Dipstick-Ancillary (obtain specimen); Complete Time: 00:12 rn Administered Medications: 07/03 21:17 Drug: NS 0.9% 1000 ml Route: IV; Rate: 1000 ml; Site: left forearm; ls4 21:17 Drug: Zofran 4 mg Route: IVP; Site: left forearm; ls4 21:26 Follow up: Response: No adverse reaction ls4 23:25 Drug: Demerol 25 mg Route: IVP; Site: left forearm; ls4 23:48 Follow up: Response: No adverse reaction; Pain is decreased ls4 Disposition: 07/04/19 00:17 Discharged to Home. Impression: Generalized abdominal pain, Other specified diabetes mellitus with diabetic polyneuropathy, Hyperglycemia, unspecified. - Condition is Stable. - Discharge Instructions: Abdominal Pain, Adult, Diabetes and Foot Care, Hyperglycemia, Peripheral Neuropathy, Blood Glucose Monitoring, Adult. - Prescriptions for Zofran ODT 4 mg Oral tablet,disintegrating - place 1 tablet by TRANSLINGUAL route every 8 hours As needed; 20 tablet. Ultram 50 mg Oral Tablet - take 1 tablet by ORAL route every 6 hours As needed; 15 tablet. - Medication Reconciliation Form, Thank You Letter, Antibiotic Education, Prescription Opioid Use form. - Follow up: Private Physician; When: As needed; Reason: Recheck today's complaints, Re-evaluation by your physician. - Problem is chronic. - Symptoms have improved. Signatures: Dispatcher [employer] EDMS Hawk Parrish MD MD rn Stewart, Lisa, RN RN ls4 Tali Lim RN RN ca1 Corrections: (The following items were deleted from the chart) 07/04 00:38 00:17 07/04/2019 00:17 Discharged to Home. Impression: Generalized abdominal pain; ls4 Other specified diabetes mellitus with diabetic polyneuropathy; Hyperglycemia, unspecified. Condition is Stable. Forms are Medication Reconciliation Form, Thank You Letter, Antibiotic Education, Prescription Opioid Use. Follow up: Private Physician; When: As needed; Reason: Recheck today's complaints, Re-evaluation by your physician. Problem is chronic. Symptoms have improved. rn
[2019-07-04 01:35] LABS: Urine Blood 1+ (NEG); Urine Glucose 2+ (NEG); Urine Protein NEGATIVE (NEG); Urine Specific Gravity 1.015 (1.005-1.030)
--- NOTE | 2019-07-04 11:03 | RAD REPORT ---
EXAM DESCRIPTION: Abdomen Pelvis W Contrast CLINICAL HISTORY: 59 years Male vomiting;Abd pain COMPARISON: None TECHNIQUE: Images were obtained in axial, sagittal, and coronal planes. Intravenous and oral contras t was administered. This exam was performed according to our departmental dose-optimization program which includes use of Automated Exposure Control, adjustment of the mA and/or kV according to patient size and/or use of i terative reconstruction technique. FINDINGS: No abnormality involving the liver, spleen, pancreas, or adrenal glands bilaterally. Prior cholecystectomy. No obstructing renal calcifications bilaterally. No hydronephrosis bilaterally. Moderately distended bladder. Right renal cyst. Mild perinephric stranding bilaterally. Appendix within normal limits. No bowel obstruction, perforation, or inflammation. Mild airspace attenuation lateral right lower lobe consistent with atelectatic change versus infiltra te. No acute osseous abnormality. Metallic fixation posteriorly L4-5 level on left. Additional moderate m ultilevel osteoarthritic change. Calcification abdominal aorta with no dilatation seen. Unremarkable portal vein. No adenopathy or abn ormal fluid collections seen. IMPRESSION: No acute intra-abdominal abnormality. Electronically signed by: Tammy Branham MD 07/03/2019 10:58 PM SHAREPOINT ANALYST Due to temporary technical issues with the PACS/Fluency reporting system, reports are being signed by the in house radiologist as a courtesy to ensure prompt reporting. The interpreting radiologist is hakeem westfallly responsible for the content of the report.
[2019-07-05 04:33] VITALS: TEMP 97.8
[2019-07-05 04:38] VITALS: BP 120/63; O2SAT 100
== END 2019-07-04 00:38 | disposition home or self-care (01) ==
LOC: ER 20:12
DX: E11.65 Type 2 diabetes mellitus with hyperglycemia (principal); E11.42 Type 2 diabetes mellitus with diabetic polyneuropathy; I10 Essential (primary) hypertension; Z95.1 Presence of aortocoronary bypass graft; Z95.818 Presence of other cardiac implants and grafts; Z95.0 Presence of cardiac pacemaker
CPT/HCPCS: 85025; 80048; 36415; 82947; 80076; 81003; 83690; 74177; 96375; 96374; 99284; Q9967; J2175; J7030; J2405

== ENCOUNTER 2019-07-31 21:40 | Observation (INO) | payer OTHER ==
--- OUTSIDE RECORDS SUMMARY | 2019-07-31 21:43 | XMS REPORT ---
:1960 [facility] Address [address] [place] [address] Care Team Providers Name Role Phone TERA [...] PHOSPHATASE TOTAL (test code=ALKP) 149 Unit/L 50-136 [id number] 18:02:00 Test Item Value Reference Range Comments AMYLASE (test code=SERGIO) 82 Unit/L 25-115 [id number] 18:02:00 Test Item Value Reference Range Comments LIPASE (test code=LIP) 185 Unit/L 114-286 COMPREHENSIVE METABOLIC [id number] 17:56:00 Test Item Value Reference Range Comments [...] ALKALINE PHOSPHATASE TOTAL (test code=ALKP) Unit/L 50-136 [id number] 17:56:00 Test Item Value Reference Range Comments AMYLASE (test code=SERGIO) Unit/L 25-115 [id number] 17:56:00 Test Item Value Reference Range Comments LIPASE (test code=LIP) 185 Unit/L 114-286 CBC W/AUTO [id number] 17:46:00 Test Item Value Reference Range Comments [...] DIFF/SCN CRITERIA - CT ABD PELVIS W/O [id number] 17:46:00 Name: FAITH VANCE [facility] : 1960 Age/S: 58 / M [address] [address] Unit #: [id number] Loc: [place] [address] Phys: Nila Chester MD Acct: [id number] Dis Date: Status : REG ER PHONE #: [phone] Exam Date: 01/03/2019 1734 FAX #: Reason: llq EXAMS: CPT: [id number] CT ABD PELVIS W/O CONT 24130 Location ofdictation: B2 CT abdomen and pelvis [...] Signed Report ( CONTINUED) Name: FAITH VANCE [facility] : [birth year] Age/S: 58 / M [address] [facility] [address] Unit #: [id number] Loc : [place] [address] Phys: Rochelle Chester MD Acct: [id number] Dis Date: Status: REG ER PHONE #: [phone] Exam Date: 01/03/2019 1731 FAX #: Reason: llq EXAMS: CPT: [id number] CT ABD PELVIS W/O CONT 21523 < Continued> at 1746 Reported and signed by: Renuka Willett M.D. CC: Nila Chester MD Technologist:RT Kevin(R)(CT )(MRI) CTDI: DLP: Trnscb Date/Time: 01/03/2019 (8597) [email or web address] Orig Print D/T: S: 01/03/2019 (1296) PAGE 2 Signed ReportCTA BRAIN [place] [address] Patient Name: FAITH VANCE MR #: [id number] : 1960 Age/Sex: 57/M Req #: [id number] Adm Physician: TERA COX MD Ordered by: TERA COX MD Report # : [id number] Location: [facility] Room/Bed: [place] [address] Procedure: [id number] CT/CTA BRAIN Exam Date: 10/24/17 Exam Time: 9951 REPORT STATUS: Signed Intracranial CTA History : [...] COPY TO: TERA COX MDCT BRAIN WO [place] [address] Patient Name: FAITH VANCE MR #: [id number] : 1960 Age/Sex: 57/M Req #: [id number] Adm Physician: Ordered by: ARLETH WAHL MD Report #: [id number] Location: ER Room/Bed: Procedure: [id number] CT/CT BRAIN WO Exam Date: 10/23/17 Exam [...] 10/23/17 1643 [facility] [place] [address] Patient Name: FAITH VANCE MR #: [id number] : 1959 Age/Sex: 57/M Req #: [id number] Adm Physician: Ordered by: ARLETH WAHL MD Report #: [id number] Location: Room/Bed : Procedure: 2101-4705 CT/CTA CHEST Exam Date: 10/23 Exam Time: [...] 3. Hepatic steatosis. Signed by: Dr. Oren Irziarry MD on 10/23/2017 4:21 PM Dictated By: OREN IRIZARRY MD [id number] Transcribed By: ANDREE on 10/23/17 1621 [facility]: [facility] [place] [address] Patient Name: FAITH VANCE MR #: [id number] : 1960 Age/Sex: 57/M Req #: [id number] Adm Physician: Ordered by: ARLETH WAHL MD Report #: [id number] Location: ER Room/Bed: Procedure: 9518-9679 DX/CHEST SINGLE (PORTABLE) Exam Date: 10/23/17 Exam [...] TO: ARLETH WAHL V MDCT BRAIN WO [place] [address] Patient Name: FAITH VANCE MR #: [id number] : 1960 Age/Sex: 56/M Req #: [id number] Adm Physician: Ordered by: JACQUELYN MONTES DE OCA MD Report #: [id number] Location: ER Room/Bed: Procedure: 1114- 0001 CT/CT [...] MONTES DE OCA MDCT CERVICAL SPINE WO [place] [address] Patient Name: FAITH VANCE MR #: [id number] : 1960 Age/Sex: 56/M Req #: [id number] Adm Physician : Ordered by: JACQUELYN MONTES DE OCA MD Report #: [id number] Location: ER Room/ Bed: Procedure: 3001-5468 CT/CT CERVICAL SPINE WO Exam Date: Exam [...] 04/04/17206 COPY TO: JACQUELYN MONTES DE OCA [facility] [address] [place], [place] [address] Patient Name: FAITH VANCE MR #: [id number] : 1960 Age/Sex: 56/M Req #: [id number] Adm Physician : Ordered by: JACQUELYN MONTES DE OCA MD Report #: [id number] Location: ER Room/ Bed: Procedure: 8986-4840 DX/CHEST SINGLE (PORTABLE) Exam Date: 04/04/17 Exam [...] OCA MDHIP RIGHT 2-3 VW (+/- PELVIS) [place] [address] Patient Name: FAITH VANCE MR #: [id number] : 1960 Age/Sex: 56/M Req #: [id number] Adm Physician: Ordered by: JACQUELYN MONTES DE OCA MD Report #: [id number] Location: ER Room/Bed: Procedure: 6 DX/HIP RIGHT [...] DE OCA MDSP LUMBAR, COMPLETE MIN 4VW [place] [address] Patient Name: FAITH VANCE MR #: [id number] : 1960 Age/Sex: 56/M Req # : [id number] Adm Physician: Ordered by: JACQUELYN MONTES DE [...] JACQUELYN MONTES DE OCA MDUS ABDOMEN COMPLETE [place] [address] Patient Name: FAITH VANCE MR #: [id number] : 1960 Age/Sex: 56/M Req #: [id number] Adm Physician: NICHELLE PALACIOS MD Ordered by: SCOTT AMIN MD Report #: [id number] Location: [facility] Room/Bed: [place] [address] _ Procedure: [id number] US/US ABDOMEN COMPLETE Exam Date: 03/08/17 Exam [...] on 03/08/17 1040 COPY TO: SCOTT AMIN [facility] SINGLE (PORTABLE) [place] [address] Patient Name: FAITH VANCE MR #: [id number] : 1960 Age/Sex: 56/M Req #: [id number] Adm Physician: Ordered by: JACQUELYN MONTES DE OCA MD Report #: [id number] Location: ER Room/Bed: Procedure: [id number] DX/CHEST SINGLE (PORTABLE) Exam Date: 03/05/17 Exam [...]
--- OUTSIDE RECORDS SUMMARY | 2019-07-31 21:50 | XMS REPORT | Summary of Care ---
:1960 Author Organization [facility] Address [address] [place] [address] Care Team Providers Name Role Phone Mario Nika Simmons Primary Care Provider Linda Mahan Insurance Hmo Reason for Visit Reason Comments Transition Of Care Encounter Details Date Type Department Care Team Description 06/27/2019 Transition of Care Critical access hospital Gilda French Transition Of Care [facility] RN [phone] Allergies No Known Allergiesdocumented as of this encounter (statuses as of 06/27/2019) Medications Medication Sig Dispensed Refills Start Date [...] as of this encounter (statuses as of 06/27/2019) Active Problems Problem Noted Date Pacemaker malfunction 06/25/2019 Cellulitis 04/09/2019 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 NSTEMI (non-ST elevated myocardial infarction) 01/24/2019 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 Type 2 diabetes mellitus without complication, without long-term current 01/17 use of insulin Essential hypertension 01/17/2019 Other hyperlipidemia 01/17/2019 Stroke 09/30/2018 Left-sided weakness 09/29/2018 Left sided numbness 09/29/2018 S/P admn tPA in diff fac w/n last 24 hr bef adm to crnt fac 08/30/2018 Unstable angina 08/29/2018 Chest pain 07/13/2018 documented as of this encounter (statuses as of 06/27/2019) Immunizations Name Administration Dates Next Due Influenza [...] of this encounter Implants Implanted Type Area Densitometrist Device Shelf Model / Identifier Expiration Date Serial / Lot [employer] PACEMAKER [id number] / Assurity [id number] / Pacemaker Metal Bar-05/22/1994 Back Implanted: 05/22/1994 (Quantity not on file) Metal Bar-05/22/2002 Arm Implanted: 05/22/2002 (Quantity not on file) documented as of this encounter Results Not on filedocumented in this encounter Insurance Payer Benefit Plan / Subscriber ID Effective Dates Phone Address Type Group [place] [id number] 2018-Present Medicare [place] documented as of this encounter Advance Directives Name Relationship Healthcare Agent Communication Relationship Rose Desouza Mother Primary healthcare agent
--- OUTSIDE RECORDS SUMMARY | 2019-07-31 21:50 | XMS REPORT | Summary of Care ---
:1960 Author Organization [facility] - [facility] Address [address] [place] [id number] Care Team Providers Name Role Phone Fransisco Martin Primary Care Provider Linda Mahan Insurance Hmo Reason for Referral (Routine) Status Reason Specialty Diagnoses / Referred By Referred To Procedures Contact Contact New Request Diagnoses Unstable angina pectoris Rober, Jeffry Fransisco Martin Procedures Discharge Follow-up: PCP FRANSISCO MARTIN; 1 Week KYRA Gaxiola [phone] [place] [id number] [place], [place] Phone: [phone] Phone: (Routine) Status Reason Specialty Diagnoses / Referred By Referred To Procedures Contact Contact New Request IM-GASTROENTEROLO Diagnoses Chest pain, unspecified type Rober, Jeffry GY Procedures Discharge Follow-Up: Specialty Service IM-GASTROENTEROLOGY; 1 Month KYRA Gaxiola [address] [address] (Routine) Status Reason Specialty Diagnoses / Referred By Referred To Procedures Contact Contact New Request Cardiac Diagnoses Chest pain, unspecified type Rober, Jeffry Rehabilitation Procedures CONSULT/REFERRAL CARDIAC REHAB KYRA Gaxiola [address] [address] (Routine) Status Reason Specialty Diagnoses / Referred By Referred To Procedures Contact Contact New Request Cardiac Diagnoses Unstable angina Rober, Jeffry Rehabilitation Procedures CONSULT CARDIAC REHAB KYRA Gaxiola [address] [place] [id number] (Routine) Status Reason Specialty Diagnoses / Referred By Referred To Procedures Contact Contact New Request IM-CARDIOVASCULAR Diagnoses Unstable angina Rober, Jeffry DISEASE Procedures Discharge Follow-Up: Specialty Service IM-CARDIOVASCULAR DISEASE; 4-6 Weeks KYRA Gaxiola [address] [address] Radiology Services (STAT) Status Reason Specialty Diagnoses / Referred By Referred To Procedures Contact Contact New Request Diagnostic Diagnoses Chest pain, unspecified type Janeth Leal Radiology Procedures Chest 1 View J, [address] [address] Reason for Visit Reason Comments Abdominal Pain Shortness of Breath Auth/Cert Status Reason Specialty Diagnoses / Referred By Referred To Procedures Contact Contact [facility] [address] [place] [address] [place] [address] Encounter Details Date Type Department Care Team Description 06/24/2019 - Hospital Encounter Cardiology (GERALD 9B) Janeth Leal, DO [address] [place] [phone] Chest pain 06/26/2019 [facility] Rober JeffryKYRA Cash [address] [place] [phone] [place], [place] [id number] Allergies No Known Allergiesdocumented as of this encounter (statuses as of 06/26/2019) Medications Medication Sig Dispensed Refills Start End Date Status Date venlafaxine 75 mg Take 75 mg by 0 Active tablet mouth 2 (two) times daily. levothyroxine 50 Take 50 mcg by 0 Active mcg tablet mouth every morning. nitroglycerin 0.4 Place 1 tablet 1 Bottle 0 Active mg sublingual under the tongue 9 tabletIndications: every 5 (five) Chest pain, minutes as unspecified type needed for Chest pain. insulin regular inject 6 Units 10 Vial 5 Active human 100 unit/mL under the skin 2 9 injectionIndicatio (two) times ns: Left-sided daily before weakness breakfast and dinner. HYDROcodone-acetam Take 1 tablet by 24 tablet 0 Active inophen (NORCO) mouth every 6 9 5-325 mg (six) hours as tabletIndications: needed for Pain Abdominal pain, (scale 7-10). unspecified abdominal location metoclopramide HCl Take 10 mg by 0 Active 10 mg tablet mouth before meals. insulin NPH 100 Inject SQ 16u 10 Vial 5 Active unit/mL qam and 14u qpm 9 injectionIndicatio ns: Left-sided weakness atorvastatin 80 mg Take 1 tablet by 30 tablet 11 Active tabletIndications: mouth at 0 Unstable angina bedtime. pectoris ticagrelor 90 mg Take 1 tablet by 60 tablet 11 Active tabletIndications: mouth 2 (two) 0 Unstable angina times daily. pectoris apixaban 5 mg Take 1 tablet by 60 tablet 11 Active tabletIndications: mouth 2 (two) 0 atrial times daily. fibrillation Indications: atrial fibrillation apixaban 5 mg Take 1 tablet by 60 tablet 0 Active tabletIndications: mouth 2 (two) 0 atrial times daily. fibrillation Indications: atrial fibrillation aspirin 81 mg Take 1 tablet by 30 tablet 11 Active chewable mouth at 0 tabletIndications: bedtime. Unstable angina pectoris pantoprazole 20 mg Take 1 tablet by 30 tablet 1 Active EC mouth daily. 0 tabletIndications: Unstable angina pectoris metoprolol Take 1 tablet by 60 tablet 2 06/26/19 Discontinued succinate XL 25 mg mouth 2 (two) 9 20 24 hr times daily. tabletIndications: Coronary artery disease involving nondalton coronary artery of nondalton heart with angina pectoris ticagrelor 90 mg Take 1 tablet by 60 tablet 11 06/26/19 Discontinued tabletIndications: mouth 2 (two) 9 20 Coronary artery times daily. disease involving nondalton coronary artery of nondalton heart with angina pectoris aspirin 81 mg Take 1 tablet by 30 tablet 2 06/26/19 Discontinued chewable mouth at 9 20 tabletIndications: bedtime. Coronary artery disease involving nondalton coronary artery of nondalton heart with angina pectoris famotidine 20 mg Take 20 mg by 0 06/26/19 Discontinued tablet mouth 2 (two) 20 times daily. lisinopril 2.5 mg Take 2.5 mg by 0 06/26/19 Discontinued tablet mouth daily. 20 levoFLOXacin 500 Take 1 tablet by 10 tablet 0 06/26/19 Discontinued mg mouth every 24 9 20 tabletIndications: (twenty-four) Cellulitis of left hours. lower extremity aspirin 81 mg Take 1 tablet by 30 tablet 11 06/26/19 Discontinued chewable mouth at 0 20 tabletIndications: bedtime. Unstable angina pectoris pantoprazole 20 mg Take 1 tablet by 30 tablet 1 06/26/19 Discontinued EC mouth daily for 0 20 (Reorder) tabletIndications: 60 days. Unstable angina pectoris ticagrelor 90 mg Take 1 tablet by 60 tablet 11 06/26/19 Discontinued tabletIndications: mouth 2 (two) 0 20 (Reorder) Unstable angina times daily. pectoris atorvastatin 80 mg Take 1 tablet by 30 tablet 11 06/26/19 Discontinued tabletIndications: mouth at 0 20 (Reorder) Unstable angina bedtime. pectoris apixaban 5 mg Take 1 tablet by 60 tablet 0 06/26/19 Discontinued tabletIndications: mouth 2 (two) 0 20 atrial times daily for fibrillation 30 days. Indications: atrial fibrillation apixaban 5 mg Take 1 tablet by 60 tablet 11 06/26/19 Discontinued tabletIndications: mouth 2 (two) 0 20 (Reorder) atrial times daily. 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 NSTEMI (non-ST elevated myocardial infarction) 01/24/2019 Coronary artery disease involving nondalton coronary artery of nondalton heart 01/17 with angina pectoris Type 2 diabetes mellitus without complication, without long-term current 01/17 use of insulin Essential hypertension 01/17/2019 Other hyperlipidemia 01/17/2019 Stroke 09/30/2018 Left-sided weakness 09/29/2018 Left sided numbness 09/29/2018 S/P admn tPA in diff fac w/n last 24 hr bef adm to crnt fac 08/30/2018 Unstable angina 08/29/2018 Chest pain 07/13/2018 documented as of this encounter (statuses as of 06/26/2019) Immunizations Name Administration Dates Next Due Influenza [...] of this encounter Last Filed Vital Signs Vital Sign Reading Time Taken Comments Blood Pressure 114/76 06/26/2019 4:23 PM FLAP LINING BINDER Pulse 83 06/26/2019 4:23 PM FLAP LINING BINDER Temperature 36.4 C (97.5 F) 06/26/2019 4:23 PM FLAP LINING BINDER Respiratory Rate 18 06/26/2019 4:23 PM FLAP LINING BINDER Oxygen Saturation 99% 06/26/2019 4:23 PM FLAP LINING BINDER Inhaled Oxygen Concentration - - Weight 78.1 kg (172 lb 1.6 oz) 06/26/2019 3:43 AM FLAP LINING BINDER Height 170.2 cm (5' 7") 06/24/2019 2:53 PM FLAP LINING BINDER Body Mass Index 26.95 06/24/2019 2:53 PM FLAP LINING BINDER documented in this encounter Discharge Summaries Jodie Toscano RN - 06/26/2019 1:07 PM FLAP LINING BINDER Care Management Discharge Disposition Note (DCDN) 5-2-1 Interventions: Disease specific education;Intensive medication reconciliation/management;Teachback;Clear discharge plan;Follow-up phone calls 5-2-1 Providers: Physician;Hem Inspector/Saddle Mechanic;Nurse 5-2-1 Patient Capacity Improvements: Avoidance of adverse events/readmission; Transportation arrangements Discussed with patient/patients family involved in decision making: Patient or family caregiver understands, and agrees with discharge plan. Transportation: Taxi Cab Voucher Mental Status: Alert & Oriented to Person,Place & Time Living Arrangement: Home: single story Other living arrangement: Address of living arrangement: [address] [place] [phone] Funding Resources: Medicare Replacement Nursing informed of discharge plan: Yes Name of RN informed: Phoebe Estimated discharge date: 06/26/19 Time: 1400 Additional Information: CM/SW Name & Contact number: Jodie Toscano RN Ph. [phone] The following information has been provided to the facility noted above: reason for the patient discharge or transfer; patients physical and psychosocial status; summary of care, treatment, servicesprovided to patient; and the patient progress toward goals. documented in this encounter Discharge Instructions AttachmentsThe following attachments cannot be sent through Care Everywhere.Heart Attack or Angina, Recognizing a (Eritrean)Diabetes, Carbohydrates, Fats, and Protein, Understanding (Eritrean)Diabetes, Diet (Eritrean )Angioplasty and Stenting, Venous (Eritrean)documented in this encounter Progress Notes Carlos Niño, FILL TECHNICIAN - 06/26/2019 8:44 AM CSTCare Management Social Functional Assessment Patient Name: Ernie Rooney Age: [age] year old Sex: male Patient's Previous Admission Date at [facility]: 01/24/2019 Patient lives with roommate Janeth Haynes - Ph. [phone]. He is independent in his ADL's and uses a rollator as a DME. He has a PCP in [facility]. Patient states he stopped smoking 6 years ago andsmoking 5 years ago. Anticipated d/c is home. Taxi voucher will be needed upon d/c. Current diagnosis and co-morbidities: No admission diagnoses are documented for this encounter. Readmission Questions: Was patient discharged from any acute care hospital within the last 30 days: No Social Functional Assessment: Primary language spoken/preferred: Eritrean Mental Status: Alert & Oriented to Person,Place & Time Information given by: Self Patient's support system: Parent;Other Name and number of support system: Roomate - Janethra Haynes - Ph. [phone], Mother - Rose Desouza - Ph. [phone] Primary Cloth Worker: Self Living Arrangement: Home Address of living arrangement : [address] [facility] [address] Persons living in home: Self Barriers to returning home: Declining function Baseline functional status- ambulation: Independent Functional status-baseline personal care: Independent Baseline functional status- driving: Independent Baseline functional status- grocery shopping: Independent Functional status-baseline housekeeping: Independent Functional status-baseline meal prep: Independent Current functional status same as prior: Yes Do you have a PCP?: Yes Name of PCP: Dr. Fransisco Martin Home [facility] Care Agency: No Provider Services: No DME Company: No Equipment: Rollator Hemodialysis: No Community resources utilized: None Funding Resources: Medicare Replacement;Commercial Prescription coverage plan: Medicare Part D;Commercial Pharmacy where meds are filled: Other Other pharmacy: [facility] Anticipated services prior to disharge: Consult;Reassess prior to discharge Expected mode of discharge transportation: Personal vehicle Additional info required for discharge planning: Pending medical evaluation Recommended discharge plan: Home Carlos Niño - [facility] Saddle Mechanic Ph. [phone] [facility] Complete: Social Functional Assessment complete: Yes Alcohol Use Screening (AUDIT-C) How often do you have a drink containing alcohol?: Never SCORE: 0 Did patient elect to have resources provided: No Role of Care Management explained. oë Moreno RN - 06/25/2019 1:52 PM CSTThis case is appropriate for inpatient admission. The change to inpatient admission is based on the level care this patient is receiving, medical necessity, risks associated and the expected duration of stay. The inpatient admission order has been entered per Dr. Richter. Precert status changed to Patient Class Change and inpatient registration notified via W to update/notify insurance. Zoë CALZADA, RN Utilization Review Lola Bañuelos MD - 06/25/2019 7:17 AM CST White Team Progress Note Date of Service: 06/25/2019 07:17 Chief Complaint: chest pain 24-HOUR EVENTS: -admitted to vidya team -tele: sinus 1st degree AV block SUBJECTIVE: The patient reports that he is still having pressure like chest pain that radiates to his left arm, worse with activity. He also complains of mid- thoracic back pain that started at the same time as hischest pain. No new issues overnight. PHYSICAL EXAM: Vitals: 06/24/19 1920 06/24/19 2323 06/25/19 0442 06/25/19 0700 BP: 129/77 101/60 121/73 112/66 Patient Position: Supine Supine Supine Pulse: 87 78 77 74 Resp: 18 20 Temp: 36.5 C (97.7 F) 36.6 C (97.8 F) 35.7 C (96.3 F) 36.3 C ( 97.3 F) TempSrc: Oral Oral Oral Oral SpO2: 100% 98% 100% 99% Weight: Height: Intake/Output Summary (Last 24 hours) at 06/25/2019 0717 Last data filed at 06/25/2019 0301 Gross per 24 hour Intake Output 600 ml Net -600 ml General: alert and oriented x 4 (person, place, date/time and situation); no apparent distress Lungs: clear to auscultation bilaterally Cardio: S1, S2 normal; no murmurs, rubs or gallops, regular rate and rhythm Abdomen: soft; non-tender; non-distended; normoactive bowel sounds Extremities: no clubbing, cyanosis, or edema Skin: no rashes LABS/IMAGING - reviewed, pertinent results as below: Troponin 0.009-->0.018 UDS + opiates Cr 1.62-->0.61 after fluids ASSESSMENT/PLAN Ernie Rooney is a 59 year old male admitted to the hospital with: Typical chest pain in the setting of DAPT noncompliance Sensation of shocks from pacemaker CAD s/p CABG in 2003 and multiple PCIs (most recently in 01/2019) Hx of multiple CVAs HTN HLD Comment: Initial trops negative x2, EKG without acute ischemic changes. Since the patient has been off brilanta for > 1 week, there is concern for stent closure. Will likely need EP consult in AM toevaluate dual lead pacemaker. Plan: - Trend Troponin I x 3 - Heparin bolus + drip - Asa 81 mg po daily - c/w brilanta 90 mg bid - NTG 0.4mg SL q5min prn angina - Morphine 4 mg IV q4h prn angina - TTE - Consider EP consult for device check - NPO for possible LHC Acute kidney injury, likely pre-renal Comment: Resolved after 1L fluid Plan: - daily BMP DMII - c/w insulin NPH 16 u qam +14 u qpm - c/w insulin regular 6 u bid meals - c/w Reglan 10 mg ac - SSI while in house Depression - c/w venlafaxine 75 mg qd Hypothyroidism - c/w levothyroxine 50 mcg qam Patient seen and discussed with Dr. Richter, faculty. Lola Lee Internal Medicine PGY-2 Pager: [phone] Singh Team END OF DAILY PROGRESS NOTE Hospital Course Ernie Rooney is a 59 year old male with a PMH of CAD s/p CABG in 2004 and multiple PCIs (most recently in 01/2019) with dual lead pacemaker in 2018, multiple CVAs, HTN, HLD, BPH, hypothyroidism, depression, DMII who presented initially to [place] [facility] for concerns of typical chest pain after non- compliance with Brilinta for the last 1 week. Troponins were negative and EKG showed no ischemic changes, but patient was transferred to [facility] and admitted for possible LHC. LINING BINDER Associated attestation - Jeffry Richter MBBS - 06/26/2019 12:49 PM CSTI have personally examined the patient on 06/25/[address] Lee's note as written. I haveactively participated in the decision making process. Jeffry Richter MD, FACCdocumented in this encounter Plan of Treatment Name Type Priority Associated Diagnoses Date/Time URINE DRUG (LCMSMS) - LAB Routine 06/25/2019 2:56 AM FLAP LINING BINDER SYNTHETIC OPIATES PANEL URINE DRUG (LCMSMS) - LAB Routine 06/25/2019 2:56 AM FLAP LINING BINDER OPIATES PANEL Name Type Priority Associated Order Schedule Diagnoses Basic Metabolic Panel LAB Routine EVERY MORNING AT 0400 (NA, K, CL, CO2, for 1 Weeks starting GLUCOSE, BUN, 06/25/2019 until CREATININE, CA) 07/01/2019, 2 completed CBC with Differential LAB Routine EVERY MORNING AT 0400 for 1 Weeks starting 06/25/2019 until 07/01/2019, 2 completed Magnesium Serum LAB Routine EVERY MORNING AT 0400 for 1 Weeks starting 06/25/2019 until 07/01/2019, 2 completed EKG-12 LEAD ROUTINE HEART STATION PIERRE ONCE for 1 Occurrences starting 06/24/2019 until 06/24/2019 aPTT (for use with LAB Routine FOR FOLLOW-UP TESTING Heparin Practice until discontinued Guideline). Note: starting 06/24/2019, Draw and Send all Lab 3 completed STAT. URINE DRUG (LCMSMS) - LAB Routine ONCE for 1 SYNTHETIC OPIATES Occurrences starting PANEL 06/25/2019 until 06/25/2019, 1 completed URINE DRUG (LCMSMS) - LAB Routine ONCE for 1 OPIATES PANEL Occurrences starting 06/25/2019 until 06/25/2019, 1 completed EKG-12 LEAD ROUTINE HEART STATION STAT ONCE for 1 Occurrences starting 06/25/2019 until 06/25/2019 EKG-12 LEAD ROUTINE HEART STATION Routine EVERY 8 HOURS STARTING IN 8 HOURS for 24 Hours starting 06/25/2019 until 06/26/2019 aPTT - Initial blood LAB Routine EVERY 2 HOURS (START draw to be done 2 TIME ADJUSTABLE) for hours after procedure. 24 Hours starting 06/25/2019 until 06/26/2019, 2 completed EKG-12 LEAD ROUTINE HEART STATION Routine ONCE for 1 Occurrences starting 06/26/2019 until 06/26/2019 Health Maintenance Due Date Last Done Comments [...] 09/29/2018, 09/18/2018, Additional history exists CREATININE (SERUM) 06/25/2020 06/25/2019, 06/24/2019, 04/11/2019, Additional history exists PNEUMOCOCCAL 0-64 YEARS COMBINED Completed 02/18/2018 SERIES HEPATITIS C (HCV) SCREEN Completed 08/29/2018 documented as of this encounter Implants Implanted Type Area Firebrick Layer Helper Device Shelf Model / Identifier Expiration Date Serial / Lot St. [employer] PACEMAKER [id number] / Assurity [id number] / Pacemaker Metal Bar-05/22/1994 Back Implanted: 05/22/1994 (Quantity not on file) Metal Bar-05/22/2002 Arm Implanted: 05/22/2002 (Quantity not on file) documented as of this encounter Procedures Procedure Name Priority Date/Time Associated Comments Diagnosis POCT GLUCOSE Routine 06/26/2019 5:04 Results for this (AUTOMATED) PM FLAP LINING BINDER procedure are in the results section. POCT GLUCOSE Routine 06/26/2019 11:50 Results for this (AUTOMATED) AM FLAP LINING BINDER procedure are in the results section. CBC WITH DIFFERENTIAL Routine 06/26/2019 3:44 Results for this AM FLAP LINING BINDER procedure are in the results section. CBC WITH DIFFERENTIAL Routine 06/26/2019 3:44 Results for this AM FLAP LINING BINDER procedure are in the results section. BASIC METABOLIC PANEL Routine 06/26/2019 3:44 Results for this (NA, K, CL, CO2, AM FLAP LINING BINDER procedure are in GLUCOSE, BUN, the results CREATININE, CA) section. MAGNESIUM Routine 06/26/2019 3:44 Results for this AM FLAP LINING BINDER procedure are in the results section. ACTIVATED PARTIAL Routine 06/25/2019 11:38 Results for this THRMPLAS AMARILIS PM FLAP LINING BINDER procedure are in the results section. ACTIVATED PARTIAL Routine 06/25/2019 8:45 Results for this THRMPLAS AMARILIS PM FLAP LINING BINDER procedure are in the results section. POCT GLUCOSE Routine 06/25/2019 8:42 Results for this (AUTOMATED) PM FLAP LINING BINDER procedure are in the results section. ACTIVATED PARTIAL Routine 06/25/2019 6:09 Results for this THRMPLAS AMARILIS PM FLAP LINING BINDER procedure are in the results section. POCT GLUCOSE Routine 06/25/2019 3:52 Results for this (AUTOMATED) PM FLAP LINING BINDER procedure are in the results section. POCT ACT LOW RANGE Routine 06/25/2019 2:37 Results for this PM FLAP LINING BINDER procedure are in the results section. POCT ACT LOW RANGE Routine 06/25/2019 1:20 Results for this PM FLAP LINING BINDER procedure are in the results section. POCT GLUCOSE Routine 06/25/2019 9:41 Results for this (AUTOMATED) AM FLAP LINING BINDER procedure are in the results section. ECHO ROUTINE W/DOPPLER Routine 06/25/2019 8:26 Chest pain, COLOR AM FLAP LINING BINDER unspecified type ACTIVATED PARTIAL Routine 06/25/2019 2:59 Results for this THRMPLAS AMARILIS AM FLAP LINING BINDER procedure are in the results section. CBC WITH DIFFERENTIAL Routine 06/25/2019 2:56 Results for this AM FLAP LINING BINDER procedure are in the results section. SODIUM, URINE RANDOM Routine 06/25/2019 2:56 Results for this AM FLAP LINING BINDER procedure are in the results section. UREA NITROGEN, URINE Routine 06/25/2019 2:56 Results for this RANDOM AM FLAP LINING BINDER procedure are in the results section. CREATININE, URINE Routine 06/25/2019 2:56 Results for this RANDOM AM FLAP LINING BINDER procedure are in the results section. CBC WITH DIFFERENTIAL Routine 06/25/2019 2:56 Results for this AM FLAP LINING BINDER procedure are in the results section. GALV/CLC ONLY - URINE Routine 06/25/2019 2:56 Results for this DRUG (IMMUNOASSAY) - AM FLAP LINING BINDER procedure are in COMPREHENSIVE DRUG the results SCREEN section. BASIC METABOLIC PANEL Routine 06/25/2019 2:56 Results for this (NA, K, CL, CO2, AM FLAP LINING BINDER procedure are in GLUCOSE, BUN, the results CREATININE, CA) section. TROPONIN I Routine 06/25/2019 2:56 Results for this AM FLAP LINING BINDER procedure are in the results section. MAGNESIUM Routine 06/25/2019 2:56 Results for this AM FLAP LINING BINDER procedure are in the results section. ACTIVATED PARTIAL Routine 06/24/2019 8:38 Results for this THRMPLAS AMARILIS PM FLAP LINING BINDER procedure are in the results section. TROPONIN I Routine 06/24/2019 8:38 Results for this PM FLAP LINING BINDER procedure are in the results section. POCT GLUCOSE Routine 06/24/2019 8:17 Results for this (AUTOMATED) PM FLAP LINING BINDER procedure are in the results section. URINALYSIS STAT 06/24/2019 3:55 Chest pain, Results for this PM FLAP LINING BINDER unspecified type procedure are in the results section. XR CHEST 1 VW STAT 06/24/2019 3:19 Chest pain, Results for this PM FLAP LINING BINDER unspecified type procedure are in the results section. CBC WITH DIFFERENTIAL STAT 06/24/2019 3:08 Chest pain, Results for this PM FLAP LINING BINDER unspecified type procedure are in the results section. N-TERMINAL PRO-BNP STAT 06/24/2019 3:08 Chest pain, Results for this PM FLAP LINING BINDER unspecified type procedure are in the results section. PROTHROMBIN TIME / INR STAT 06/24/2019 3:08 Chest pain, Results for this PM FLAP LINING BINDER unspecified type procedure are in the results section. GLYCOSYLATED Add-on 06/24/2019 3:08 Results for this HEMOGLOBIN (A1C) PM FLAP LINING BINDER procedure are in the results section. CBC WITH DIFFERENTIAL Routine 06/24/2019 3:08 Chest pain, Results for this PM FLAP LINING BINDER unspecified type procedure are in the results section. BASIC METABOLIC PANEL STAT 06/24/2019 3:08 Chest pain, Results for this (NA, K, CL, CO2, PM FLAP LINING BINDER unspecified type procedure are in GLUCOSE, BUN, the results CREATININE, CA) section. HEPATIC FUNCTION PANEL STAT 06/24/2019 3:08 Chest pain, Results for this (28321) PM FLAP LINING BINDER unspecified type procedure are in (ALB,T.PRO,BILI the results T,BU/BC,ALT,AST,ALK section. PHOS) THYROID STIMULATING STAT 06/24/2019 3:08 Chest pain, Results for this HORMONE PM FLAP LINING BINDER unspecified type procedure are in the results section. TROPONIN I STAT 06/24/2019 3:08 Chest pain, Results for this PM FLAP LINING BINDER unspecified type procedure are in the results section. MAGNESIUM STAT 06/24/2019 3:08 Chest pain, Results for this PM FLAP LINING BINDER unspecified type procedure are in the results section. PHOSPHORUS Add-on 06/24/2019 3:08 Results for this PM FLAP LINING BINDER procedure are in the results section. EKG-12 LEAD STAT 06/24/2019 3:01 PM FLAP LINING BINDER EKG-12 LEAD Routine 06/24/2019 2:56 PM FLAP LINING BINDER NOTICE OF PRIVACY Routine 06/24/2019 2:46 PRACTICES PM FLAP LINING BINDER CONSENT/REFUSAL FOR Routine 06/24/2019 2:46 DIAGNOSIS AND PM FLAP LINING BINDER TREATMENT documented in this encounter Results POCT GLUCOSE (AUTOMATED) (06/26/2019 5:04 PM FLAP LINING BINDER) POCT GLU 204 (H) 70 - 110 mg/dL [facility] Specimen Blood Performing Organization Address City/State/Zipcode Phone Number [facility] CLIA: [id number], [address] [place], [place] [address] [facility] POCT GLUCOSE (AUTOMATED) (06/26/2019 11:50 AM FLAP LINING BINDER) POCT GLU 115 (H) 70 - 110 mg/dL [facility] Specimen Blood Performing Organization Address City/[facility]/Zipcode Phone Number [facility] CLIA: [id number], [address] [place] [address] [phone] [facility] CBC WITH DIFFERENTIAL (06/26/2019 3:44 AM FLAP LINING BINDER) WBC 6.82 4.20 - 10.70 [facility] 10*3/L SERVICES RBC 3.36 (L) 4.26 - 5.52 [facility] 10*6/L SERVICES HGB 10.0 (L) 12.2 - 16.4 [facility] g/dL SERVICES HCT 29.5 (L) 38.4 - 49.3 % [facility] MCV 87.8 81.7 - 95.6 fL [facility] MCH 29.8 26.1 - 32.7 pg [facility] MCHC 33.9 31.2 - 35.0 [facility] g/dL SERVICES RDW-SD 41.4 38.5 - 51.6 fL [facility] RDW-CV 13.2 12.1 - 15.4 % [facility] PLT 179 150 - 328 [facility] 10*3/L SERVICES MPV 10.2 9.8 - 13.0 fL [facility] NRBC/100 WBC 0.0 0.0 - 10.0 /100 [facility] WBCs SERVICES NRBC x10^3 <0.01 10*3/L [facility] GRAN MAT (NEUT) % 77.6 % [facility] IMM GRAN % 0.40 % [facility] LYMPH % 13.8 % [facility] MONO % 6.6 % [facility] EOS % 1.5 % [facility] BASO % 0.1 % [facility] GRAN MAT x10^3(ANC) 5.29 1.99 - 6.95 [facility] 10*3/uL SERVICES IMM GRAN x10^3 0.03 0.00 - 0.06 [facility] 10*3/uL SERVICES LYMPH x10^3 0.94 (L) 1.09 - 3.23 [facility] 10*3/uL SERVICES MONO x10^3 0.45 0.36 - 1.02 [facility] 10*3/uL SERVICES EOS x10^3 0.10 0.06 - 0.53 [facility] 10*3/uL SERVICES BASO x10^3 <0.03 0.01 - 0.09 [facility] 10*3/uL SERVICES Specimen Blood - ARM, LEFT Performing Organization Address [facility] Phone Number [facility] CLIA: [id number], [address] [place] [address] [facility] Magnesium Serum (06/26/2019 3:44 AM FLAP LINING BINDER) MAGNESIUM 1.6 (L) 1.7 - 2.4 mg/dL [facility] Specimen Blood - ARM, LEFT Performing Organization Address City/[facility] Phone Number [facility] CLIA: [id number], [address] [place] [address] [phone] [facility] Basic Metabolic Panel (NA, K, CL, CO2, GLUCOSE, BUN, CREATININE, CA) (2019 3:44 AM FLAP LINING BINDER) NA 138 135 - 145 [facility] mmol/L SERVICES K 3.7 3.5 - 5.0 [facility] mmol/L SERVICES CL 109 (H) 98 - 108 mmol/L [facility] SERVICES CO2 TOTAL 20 (L) 23 - 31 mmol/L [facility] AGAP 9 2 - 16 [facility] BUN 10 7 - 23 mg/dL [facility] SERVICES GLUCOSE 121 (H) 70 - 110 mg/dL [facility] CREATININE 0.40 (L) 0.60 - 1.25 [facility] mg/dL SERVICES CALCIUM 8.0 (L) 8.6 - 10.6 [facility] mg/dL SERVICES eGFR Calculation 218.7 mL/min/1.73m2 [facility] (Non- SERVICES Hungarian) eGFR Calculation 265.1 mL/min/1.73m2 [facility] () SERVICES Specimen Blood - ARM, LEFT Narrative Performed At Association of Glomerular Filtration Rate (GFR) and Staging [facility] of Kidney Disease* + + + + | GFR (mL/min/1.73 m2) | With Kidney Damage | Without Kidney Damage + + + + | >90 | Stage one | Normal + + + + | 60-89 | Stage two | Decreased GFR + + + + | 30-59 | Stage three | Stage three + + + + | 15-29 | Stage four | Stage four + + + + | <15 (or dialysis) | Stage five | Stage five + + + + *Each stage assumes the associated GFR level has been in effect for at least three months. Stages 1 to 5, with or without kidney disease, indicate chronic kidney disease. Notes: Determination of stages one and two (with eGFR >59mL/min/1.73 m2) requires estimation of kidney damage for at least three months as defined by structural or functional abnormalities of the kidney, manifested by either: Pathological abnormalities or Markers of kidney damage (including abnormalities in the composition of the blood or urine or abnormalities in imaging tests). Performing Organization Address [facility] Phone Number [facility] CLIA: [id number], [address] [place] [address] [facility] aPTT - Initial blood draw to be done 2 hours after procedure. (06/25/2019 11:38 PM FLAP LINING BINDER) APTT Patient 32 26 - 36 Seconds [facility] Specimen Blood - ARM, LEFT Performing Organization Address [facility] Phone Number [facility] CLIA: [id number], [address] [place] [address] [facility] aPTT - Initial blood draw to be done 2 hours after procedure. (06/25/2019 8:45 PM FLAP LINING BINDER) APTT Patient 60 (H) 26 - 36 Seconds [facility] Specimen Blood - ARM, LEFT Performing Organization Address [facility] Phone Number [facility] CLIA: [id number], [address] [place] [address] [facility] POCT GLUCOSE (AUTOMATED) (06/25/2019 8:42 PM FLAP LINING BINDER) POCT GLU 165 (H) 70 - 110 mg/dL [facility] Specimen Blood Performing Organization Address City/[facility] Cent[facility]ode Phone Number [facility] CLIA: [id number], [address] [place] [address] [facility] aPTT (for use with Heparin Practice Guideline). Note: Draw and Send all Lab STAT. (06/25/2019 6:09 PM FLAP LINING BINDER) APTT Patient >150 (HH) 26 - 36 Seconds [facility] Specimen Blood - LINE, VENOUS Performing Organization Address City/[facility]n Phone Number [facility] CLIA: [id number], [address] [place] [address] [facility] POCT GLUCOSE (AUTOMATED) (06/25/2019 3:52 PM FLAP LINING BINDER) POCT GLU 178 (H) 70 - 110 mg/dL [facility] Specimen Blood Performing Organization Address [facility] Phone Number [facility] CLIA: [id number], [address] [place] [address] [phone] [facility] POCT ACT LOW RANGE (06/25/2019 2:37 PM FLAP LINING BINDER) ACTLR 400 (H) 89 - 169 Seconds [facility] Specimen Blood Performing Organization Address [facility] Phone Number [facility] CLIA: [id number], [address] [place] [address] [phone] [facility] POCT ACT LOW RANGE (06/25/2019 1:20 PM FLAP LINING BINDER) ACTLR 392 (H) 89 - 169 Seconds [facility] Specimen Blood Performing Organization Address City/[facility] Phone Number [facility] CLIA: [id number], [address] [place] [address] [facility] POCT GLUCOSE (AUTOMATED) (06/25/2019 9:41 AM FLAP LINING BINDER) POCT GLU 195 (H) 70 - 110 mg/dL [facility] Specimen Blood Performing Organization Address City/[facility] Phone Number [facility] CLIA: [id number], [address] [place] [address] [phone] [facility] aPTT (for use with Heparin Practice Guideline). Note: Draw and Send all Lab STAT. (06/25/2019 2:59 AM FLAP LINING BINDER) APTT Patient 145 (HH) 26 - 36 Seconds [facility] Specimen Blood - ARM, LEFT Performing Organization Address City/State/Zipcode Phone Number [facility] CLIA: [id number], [address] [place] [address] [facility] SODIUM, URINE RANDOM (06/25/2019 2:56 AM FLAP LINING BINDER) NA URINE 109 mmol/L [facility] Specimen Urine - URINE, CLEAN CATCH Performing Organization Address City/[facility]/Zipcode Phone Number [facility] CLIA: [id number], [address] [place] [address] 9[address] [phone] [facility] CBC WITH DIFFERENTIAL (06/25/2019 2:56 AM FLAP LINING BINDER) WBC 5.55 4.20 - 10.70 [facility] 10*3/L SERVICES RBC 3.67 (L) 4.26 - 5.52 [facility] 10*6/L SERVICES HGB 11.0 (L) 12.2 - 16.4 [facility] g/dL SERVICES HCT 32.1 (L) 38.4 - 49.3 % [facility] MCV 87.5 81.7 - 95.6 fL [facility] MCH 30.0 26.1 - 32.7 pg [facility] MCHC 34.3 31.2 - 35.0 [facility] g/dL SERVICES RDW-SD 41.6 38.5 - 51.6 fL [facility] SERVICES RDW-CV 12.9 12.1 - 15.4 % [facility] PLT 196 150 - 328 [facility] 10*3/L SERVICES MPV 10.1 9.8 - 13.0 fL [facility] NRBC/100 WBC 0.0 0.0 - 10.0 /100 [facility] WBCs SERVICES NRBC x10^3 <0.01 10*3/L [facility] GRAN MAT (NEUT) % 43.0 % [facility] IMM GRAN % 0.50 % [facility] LYMPH % 43.4 % [facility] MONO % 9.7 % [facility] EOS % 3.2 % [facility] BASO % 0.2 % [facility] GRAN MAT x10^3(ANC) 2.38 1.99 - 6.95 [facility] 10*3/uL SERVICES IMM GRAN x10^3 0.03 0.00 - 0.06 [facility] 10*3/uL SERVICES LYMPH x10^3 2.41 1.09 - 3.23 [facility] 10*3/uL SERVICES MONO x10^3 0.54 0.36 - 1.02 [facility] 10*3/uL SERVICES EOS x10^3 0.18 0.06 - 0.53 [facility] 10*3/uL SERVICES BASO x10^3 <0.03 0.01 - 0.09 [facility] 10*3/uL SERVICES Specimen Blood - ARM, RIGHT Performing Organization Address City/[facility] Phone Number [facility] CLIA: [id number], [address] [place] [address] [facility] CREATININE, URINE RANDOM (06/25/2019 2:56 AM FLAP LINING BINDER) CREAT U 114.4 mg/dL [facility] Specimen Urine - URINE, CLEAN CATCH Performing Organization Address [facility] Phone Number [facility] CLIA: [id number], [address] [place] [address] [phone] [facility] UREA NITROGEN, URINE RANDOM (06/25/2019 2:56 AM FLAP LINING BINDER) UREA N UR 511 mg/dL [facility] Specimen Urine - URINE, CLEAN CATCH Performing Organization Address [facility] Phone Number [facility] CLIA: [id number], [address] [place] [address] [facility] GALV/CLC ONLY - URINE DRUG (IMMUNOASSAY) - COMPREHENSIVE DRUG SCREEN (2019 2:56 AM FLAP LINING BINDER) AMPHET Negative Negative [facility] JUNG U Negative Negative [facility] BENZO U Negative Negative [facility] Cocaine Metabolite Negative Negative [facility] METHADONE Negative Negative [facility] OPIATES Presumptive Negative [facility] Positive (A) SERVICES PCP Negative Negative [facility] THC Negative Negative [facility] Specimen Urine - URINE, CLEAN CATCH Narrative Performed At Urine Drug Cutoff Ranges [facility] Cocaine: 150 ng/mL Benzodiazepines: 200 ng/mL Methadone: 300 ng/mL Amphetamine: 1,000 ng/mL Opiates: 300 ng/mL Cannabinoids: 50 ng/mL Phencyclidine: 25 ng/mL Barbiturates: 200 ng/mL The results are to be used only for medical (i.e., treatment) purposes. Unconfirmed screening results must not be used for non-medical purposes (e.g., employment testing, legal testing). Performing Organization Address City/[facility] Phone Number [facility] CLIA: [id number], [address] [place] [address] [facility] Troponin I (06/25/2019 2:56 AM FLAP LINING BINDER) TROPONIN I 0.018 <=0.034 ng/mL [facility] Specimen Blood - ARM, RIGHT Narrative Performed At Equal or Less than 0.034 ng/ml---Normal [facility] Note: Cardiac troponin begins to rise 3-4 hours after the onset of ischemia. Repeat in 4-6 hours if the sample was drawn within 3-4 hours of the onset of the symptom and found normal. Between 0.035 and 0.120 ng/mL--- Borderline. Questionable myocardial injury or necrosis Note: Serial measurement may be necessary to confirm or exclude the diagnosis of myocardial injury or necrosis; Clinical correlation (symptoms, EKGs, imaging studies, and others) required; Repeat in 4-6 hours if clinically indicated. Equal or Higher than 0.121 ng/mL---Abnormal. Myocardial Injury or Necrosis Likely Biotin has been reported to cause a negative bias, interpret results relative to patient's use of biotin. Performing Organization Address City/State/[facility] Phone Number [facility] CLIA: [id number], [address] [place] [address] [facility] Magnesium Serum (06/25/2019 2:56 AM FLAP LINING BINDER) MAGNESIUM 1.9 1.7 - 2.4 mg/dL [facility] Specimen Blood - ARM, RIGHT Performing Organization Address City/State/Zipcode Phone Number [facility] CLIA: [id number], [address] [place] [address] [facility] Basic Metabolic Panel (NA, K, CL, CO2, GLUCOSE, BUN, CREATININE, CA) (2019 2:56 AM FLAP LINING BINDER) NA 138 135 - 145 [facility] mmol/L SERVICES K 3.2 (L) 3.5 - 5.0 [facility] mmol/L SERVICES CL 108 98 - 108 mmol/L [facility] CO2 TOTAL 23 23 - 31 mmol/L [facility] AGAP 7 2 - 16 [facility] BUN 17 7 - 23 mg/dL [facility] GLUCOSE 177 (H) 70 - 110 mg/dL [facility] CREATININE 0.61 0.60 - 1.25 [facility] mg/dL SERVICES CALCIUM 8.4 (L) 8.6 - 10.6 [facility] mg/dL SERVICES eGFR Calculation 134.4 mL/min/1.73m2 [facility] (Non- SERVICES Hungarian) eGFR Calculation 162.9 mL/min/1.73m2 [facility] () SERVICES Specimen Blood - ARM, RIGHT Narrative Performed At Association of Glomerular Filtration Rate (GFR) and Staging [facility] of Kidney Disease* + + + + | GFR (mL/min/1.73 m2) | With Kidney Damage | Without Kidney Damage + + + + | >90 | Stage one | Normal + + + + | 60-89 | Stage two | Decreased GFR + + + + | 30-59 | Stage three | Stage three + + + + | 15-29 | Stage four | Stage four + + + + | <15 (or dialysis) | Stage five | Stage five + + + + *Each stage assumes the associated GFR level has been in effect for at least three months. Stages 1 to 5, with or without kidney disease, indicate chronic kidney disease. Notes: Determination of stages one and two (with eGFR >59mL/min/1.73 m2) requires estimation of kidney damage for at least three months as defined by structural or functional abnormalities of the kidney, manifested by either: Pathological abnormalities or Markers of kidney damage (including abnormalities in the composition of the blood or urine or abnormalities in imaging tests). Performing Organization Address City/State/Zipcode Phone Number [facility] CLIA: [id number], [address] [place] [address]288 [phone] [facility] aPTT (for use with Heparin Practice Guideline). Note: Draw and Send all Lab STAT. (06/24/2019 8:38 PM FLAP LINING BINDER) [facility] APTT Patient 30 26 - 36 Seconds [facility] Specimen Blood - ARM, LEFT Performing Organization Address [facility] Phone Number [facility] CLIA: [id number], [address] [place] [address]289 [phone] [facility] Troponin I (06/24/2019 8:38 PM FLAP LINING BINDER) [facility] TROPONIN I 0.009 <=0.034 ng/mL [facility] Specimen Blood - ARM, LEFT Narrative Performed At Equal or Less than 0.034 ng/ml---Normal [facility] Note: Cardiac troponin begins to rise 3-4 hours after the onset of ischemia. Repeat in 4-6 hours if the sample was drawn within 3-4 hours of the onset of the symptom and found normal. Between 0.035 and 0.120 ng/mL--- Borderline. Questionable myocardial injury or necrosis Note: Serial measurement may be necessary to confirm or exclude the diagnosis of myocardial injury or necrosis; Clinical correlation (symptoms, EKGs, imaging studies, and others) required; Repeat in 4-6 hours if clinically indicated. Equal or Higher than 0.121 ng/mL---Abnormal. Myocardial Injury or Necrosis Likely Biotin has been reported to cause a negative bias, interpret results relative to patient's use of biotin. Performing Organization Address City/[facility] Phone Number [facility] CLIA: [id number], [address] [place] [address] [facility] POCT GLUCOSE (AUTOMATED) (06/24/2019 8:17 PM FLAP LINING BINDER) [facility] POCT GLU 256 (H) 70 - 110 mg/dL [facility] Specimen Blood Performing Organization Address City/[facility]/Zipcode Phone Number [facility] CLIA: [id number], [address] [place] [address] [phone] [place] [facility] Urinalysis (06/24/2019 3:55 PM FLAP LINING BINDER) APPEARANCE Other (A) Clear [facility] COLOR Yellow Yellow [facility] PH 6.5 4.8 - 8.0 [facility] SP GRAVITY <=1.005 1.003 - 1.030 [facility] GLU U QUAL >1000 mg/dL (A) Negative [facility] BLOOD Negative Negative [facility] KETONES Trace (A) Negative [facility] PROTEIN Negative Negative [facility] UROBILIN 0.2 mg/dL 0-1.0 mg/dL [facility] BILIRUBIN Negative Negative [facility] NITRITE Negative Negative [facility] LEUK PETER Negative Negative [facility] RBC/HPF 3 0 - 3 HPF [facility] WBC/HPF 5 0 - 5 HPF [facility] BACTERIA Few (A) Negative [facility] MUCOUS Moderate (A) Negative LPF [facility] AMORPHOUS Few (A) Rare HPF [facility] SQ EPITH 3 HPF [facility] WBC CLUMPS 0 <=1 HPF [facility] Specimen Urine - URINE, CLEAN CATCH Performing Organization Address City/[facility]/[employer] Phone Number [facility] CLIA: [id number], [address] [place] [address] Chest 1 View (06/24/2019 3:19 PM FLAP LINING BINDER) Specimen Narrative Performed At CHEST PORTABLE ONE VIEW PACS/VR/DOSE HISTORY:Chest pain TECHNIQUE: Frontal, portable projection of the chest is obtained. COMPARISON: 01/24/2019 FINDINGS: The lungs are clear. The heart size and mediastinal silhouette are normal. No pleural effusion or pneumothorax is seen. CONCLUSIONS: No acute cardiopulmonary disease. Procedure Note [facility], Radiant Results Inft User - 06/24/2019 3:35 PM FLAP LINING BINDER CHEST PORTABLE ONE VIEW HISTORY:Chest pain TECHNIQUE: Frontal, portable projection of the chest is obtained. COMPARISON: 01/24/2019 FINDINGS: The lungs are clear. The heart size and mediastinal silhouette are normal. No pleural effusion or pneumothorax is seen. CONCLUSIONS: No acute cardiopulmonary disease. Performing Organization Address City/[facility]/[employer] Phone Number PACS/VR/DOSE Phosphorus Serum (06/24/2019 3:08 PM FLAP LINING BINDER) PHOSPHORUS 3.2 2.5 - 5.0 mg/dL [facility] Specimen Blood - VENOUS Performing Organization Address City/State/Zipcode Phone Number [facility] CLIA: [id number], [address] [place] [address] GLYCOSYLATED HEMOGLOBIN (A1C) (06/24/2019 3:08 PM FLAP LINING BINDER) HGB A1C 11.8 (H) 4.0 - 6.0 % NGSP [facility] Specimen Blood - VENOUS Narrative Performed At %A1C (NGSP) Interpretation (ADA) [facility] 4.8-5.6 Normal or (Non-Diabetic Range) 5.7-6.4 Increased Risk (Pre-Diabetic) >6.5 Diabetes Indicated Performing Organization Address City/[facility] Phone Number [facility] CLIA: [id number], [address] [place] [address] CBC WITH DIFFERENTIAL (06/24/2019 3:08 PM FLAP LINING BINDER) [facility] WBC 7.79 4.20 - 10.70 [facility] 10*3/L [facility] RBC 4.43 4.26 - 5.52 [facility] 10*6/L [facility] HGB 12.9 12.2 - 16.4 [facility] g/dL [facility] HCT 37.6 (L) 38.4 - 49.3 % [facility] [facility] MCV 84.9 81.7 - 95.6 fL [facility] MCH 29.1 26.1 - 32.7 pg [facility] MCHC 34.3 31.2 - 35.0 [facility] g/dL [facility] RDW-SD 38.1 (L) 38.5 - 51.6 fL [facility] RDW-CV 12.5 12.1 - 15.4 % [facility] PLT 243 150 - 328 [facility] 10*3/L [facility] MPV 10.6 9.8 - 13.0 fL [facility] NRBC/100 WBC 0.0 0.0 - 10.0 /100 [facility] WBCs [facility] NRBC x10^3 <0.01 10*3/L [facility] GRAN MAT (NEUT) % 62.1 % [facility] IMM GRAN % 0.40 % [facility] LYMPH % 29.3 % [facility] MONO % 6.9 % [facility] EOS % 0.9 % [facility] BASO % 0.4 % [facility] GRAN MAT x10^3(ANC) 4.84 1.99 - 6.95 [facility] 10*3/uL [facility] IMM GRAN x10^3 0.03 0.00 - 0.06 [facility] 10*3/uL [facility] LYMPH x10^3 2.28 1.09 - 3.23 [facility] 10*3/uL [facility] MONO x10^3 0.54 0.36 - 1.02 [facility] 10*3/uL [facility] EOS x10^3 0.07 0.06 - 0.53 [facility] 10*3/uL [facility] BASO x10^3 0.03 0.01 - 0.09 [facility] 10*3/uL [facility] Specimen Blood - VENOUS Performing Organization Address City/[facility] Phone Number [facility] CLIA: [id number], [address] [place] [address] THYROID STIMULATING HORMONE (06/24/2019 3:08 PM [facility]) TSH 2.42 0.45 - 4.70 mIU/L [facility] Specimen Blood - VENOUS Performing Organization Address City/[facility] Phone Number [facility] CLIA: [id number], [address] [place] [address] MAGNESIUM (06/24/2019 3:08 PM [facility]) MAGNESIUM 1.9 1.7 - 2.4 mg/dL [facility] Specimen Blood - VENOUS Performing Organization Address [facility] Phone Number [facility] CLIA: [id number], [address] [place] [address] Prothrombin Time (PT) / INR (06/24/2019 3:08 PM [facility]) PROTIME PATIENT 13.5 12.0 - 14.7 Health system LABORATORY INR 1.1Comment: Normal [facility] INR <1.1; Warfarin [facility] Therapeutic range LABORATORY 2.0 to 3.0 or 2.5 to 3.5, depending upon the indications. Specimen Blood - VENOUS Performing Organization Address [facility] Phone Number [facility] CLIA: [id number], [address] [place] [address] N-TERMINAL PRO-BNP (06/24/2019 3:08 PM [facility]) Pathologist [facility] NT-proBNP 302 (H) <=125 pg/mL [facility] Specimen Blood - VENOUS Narrative Performed At Biotin has been reported to cause a negative [facility] bias, interpret results relative to patient's use of biotin. Performing Organization Address [facility] Phone Number [facility] CLIA: [id number], [address] [place] [address] Troponin I (06/24/2019 3:08 PM [facility]) [facility] TROPONIN I <0.012 <=0.034 ng/mL [facility] Specimen Blood - VENOUS Narrative Performed At Equal or Less than 0.034 ng/ml---Normal [facility] Note: Cardiac troponin begins to rise 3-4 hours after the onset of ischemia. Repeat in 4-6 hours if the sample was drawn within 3-4 hours of the onset of the symptom and found normal. Between 0.035 and 0.120 ng/mL--- Borderline. Questionable myocardial injury or necrosis Note: Serial measurement may be necessary to confirm or exclude the diagnosis of myocardial injury or necrosis; Clinical correlation (symptoms, EKGs, imaging studies, and others) required; Repeat in 4-6 hours if clinically indicated. Equal or Higher than 0.121 ng/mL---Abnormal. Myocardial Injury or Necrosis Likely Biotin has been reported to cause a negative bias, interpret results relative to patient's use of biotin. Performing Organization Address [facility] Phone Number [facility] CLIA: [id number], [address] [place] [address] Hepatic Function Panel (ALB, T.PRO, BILI T, BU/BC, ALT, AST, ALK PHOS) (2019 3:08 PM [facility]) TOTAL BILI 0.7 0.1 - 1.1 mg/dL [facility] BILI UNCON 0.6 0.1 - 1.1 mg/dL [facility] BILI CONJ 0.0 0.0 - 0.3 mg/dL [facility] T PROTEIN 7.6 6.3 - 8.2 g/dL [facility] ALBUMIN 4.9 3.5 - 5.0 g/dL [facility] ALK PHOS 121 34 - 122 U/L [facility] ALTv 25 5 - 50 U/L [facility] AST(SGOT) 28 13 - 40 U/L [facility] Specimen Blood - VENOUS Performing Organization Address City/State/Zipcode Phone Number [facility] CLIA: [id number], [address] [place] [address] Basic Metabolic Panel (NA, K, CL, CO2, GLUCOSE, BUN, CREATININE, CA) (2019 3:08 PM [facility]) NA 139 135 - 145 [facility] mmol/L [facility] K 4.3 3.5 - 5.0 [facility] mmol/L [facility] CL 101 98 - 108 mmol/L [facility] CO2 TOTAL 21 (L) 23 - 31 mmol/L [facility] AGAP 17 (H) 2 - 16 [facility] BUN 18 7 - 23 mg/dL [facility] GLUCOSE 422 (H) 70 - 110 mg/dL [facility] CREATININE 1.62 (H) 0.60 - 1.25 [facility] mg/dL [facility] CALCIUM 10.1 8.6 - 10.6 [facility] mg/dL [facility] eGFR Calculation 43.5 mL/min/1.73m2 [facility] (Non-[facility] LABORATORY [place]) eGFR Calculation 52.8 mL/min/1.73m2 [facility] () [facility] Specimen Blood - VENOUS Narrative Performed At Association of Glomerular Filtration Rate (GFR) [facility] and Staging of Kidney Disease* + + +- + | GFR (mL/min/1.73 m2) | With Kidney Damage | Without Kidney Damage + + +- + | >90 | Stage one | Normal + + +- + | 60-89 | Stage two | Decreased GFR + + +- + | 30-59 | Stage three | Stage three + + +- + | 15-29 | Stage four | Stage four + + +- + | <15 (or dialysis) | Stage five | Stage five + + +- + *Each stage assumes the associated GFR level has been in effect for at least three months. Stages 1 to 5, with or without kidney disease, indicate chronic kidney disease. Notes: Determination of stages one and two (with eGFR >59mL/min/1.73 m2) requires estimation of kidney damage for at least three months as defined by structural or functional abnormalities of the kidney, manifested by either: Pathological abnormalities or Markers of kidney damage (including abnormalities in the composition of the blood or urine or abnormalities in imaging tests). Performing Organization Address City/State/Zipcode Phone Number 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) documented in this encounter Administered Medications Medication Order MAR Action Action Date Dose Rate Site aspirin chewable tablet 81 mg Given 06/25/2019 8:36 PM [facility] 81 mg 81 mg, Oral, QHS, First dose on Mon06/24/19 at 2100, Until Discontinued, Routine Given 06/24/2019 8:22 PM [facility] 81 mg heparin (1,000 unit/mL, 10 mL vial) for Rebolusing FOR REBOLUSING, Starting Mon06/24/19 at 2018, Until Discontinued, Routine, Dosing based on aPTT testing parameters (refer to continuous heparin drip order)., insulin NPH (HUMULIN N) injection Given 06/25/2019 8:37 PM [facility] 14 Units Abdomen-SC 14 Units 14 Units, Subcutaneous, QHS, First dose on Mon06/25/19 at 2100, Until Discontinued, Routine insulin NPH (HUMULIN N) injection Given 06/26/2019 8:58 AM [facility] 16 Units Abdomen-SC 16 Units 16 Units, Subcutaneous, QAM, First dose on Mon06/25/19 at 0900, Until Discontinued, Routine Given 06/25/2019 9:57 AM [facility] 8 Units Abdomen-SC insulin regular human (HUMULIN R) Given 06/26/2019 5:24 PM [facility] 6 Units Abdomen-SC injection 6 Units 6 Units, Subcutaneous, BID MEALS, First dose on Mon06/25/19 at 0800, Until Discontinued, Routine Given 06/26/2019 8:54 AM [facility] 6 Units Abdomen-SC levothyroxine (SYNTHROID) tablet 50 mcg Given 06/26/2019 6:09 AM [facility] 50 mcg 50 mcg, Oral, QAM-0600, First dose on Mon06/25/19 at 0600, Until Discontinued, Routine Given 06/25/2019 5:35 AM [facility] 50 mcg metoclopramide HCl (REGLAN) tablet 10 mg Given 06/26/2019 3:57 PM [facility] 10 mg 10 mg, Oral, AC, First dose on Mon06/25/19 at 0730, Until Discontinued, Routine Given 06/26/2019 11:53 AM [facility] 10 mg Given 06/26/2019 9:24 AM [facility] 10 mg morpHINE injection 2 mg Given 06/25/2019 9:47 AM [facility] 2 mg 2 mg, Slow IV Push, Q4HPRN, Starting Mon06/24/19 at 1949, Until Discontinued, Routine, Chest pain, angina pantoprazole (PROTONIX) EC tablet 40 mg Given 06/26/2019 11:53 AM [facility] 40 mg 40 mg, Oral, DAILY, First dose on Mon06/26/19 at 1030, Until Discontinued, Routine Sliding Scale Insulin - Aspart Given 06/26/2019 5:29 PM [facility] 2 Units Abdomen-SC (NOVOLOG) + Fsbg Testing Subcutaneous, TID MEALS+HS, First dose on Mon06/24/19 at 2100, Until Discontinued, Routine Given 06/25/2019 8:47 PM [facility] 1 Units Abdomen-SC Given 06/24/2019 8:20 PM [facility] 3 Units Abdomen-SC ticagrelor (BRILINTA) tablet 90 mg Given 06/26/2019 9:20 AM [facility] 90 mg 90 mg, Oral, BID, First dose on Mon06/24/19 at 2000, Until Discontinued, Routine Given 06/25/2019 8:36 PM [facility] 90 mg Given 06/25/2019 9:50 AM [facility] 90 mg venlafaxine (EFFEXOR) tablet 75 mg Given 06/26/2019 9:24 AM [facility] 75 mg 75 mg, Oral, BID, First dose on Mon06/24/19 at 2000, Until Discontinued, Routine Given 06/25/2019 8:36 PM [facility] 75 mg Given 06/25/2019 9:50 AM [facility] 75 mg Medication Order MAR Action Action Date Dose Rate Site adenosine 6 mg/1000 mL Given 06/25/2019 2:14 PM [facility] 60 mcg INTRACORONARY injection for [employer] Intra-arterial, TITRATE - FOR PROCEDURE USE, 1 dose, Starting 06/25/19 at 1414, Until 06/25/19 at 1414, Routine apixaban (ELIQUIS) tablet 5 mg Given 06/26/2019 5:35 PM [facility] 5 mg 5 mg, Oral, ONCE, 1 dose, Mon06/26/19 at 1615, Routine famotidine (PEPCID AC) tablet 20 mg Given 06/26/2019 9:19 AM [facility] 20 mg 20 mg, Oral, BID, First dose on Mon06/24/19 at 2000, Until Discontinued, Routine Given 06/25/2019 8:36 PM [facility] 20 mg Given 06/25/2019 10:56 AM [facility] 20 mg FENTanyl PF (SUBLIMAZE (PF)) injection Given 06/25/2019 12:15 PM [facility] 25 mcg Slow IV Push, TITRATE - FOR PROCEDURE USE, 1 dose, Starting 06/25/19 at 1215, Until 06/25/19 at 1215, Routine FENTanyl PF (SUBLIMAZE (PF)) injection Given 06/25/2019 12:31 PM [facility] 25 mcg Slow IV Push, TITRATE - FOR PROCEDURE USE, 1 dose, Starting Tue 220 at 1231, Until Tue 20 at 1231, Routine FENTanyl PF (SUBLIMAZE (PF)) injection Given 06/25/2019 12:34 PM [facility] 25 mcg Slow IV Push, TITRATE - FOR PROCEDURE USE, 1 dose, Starting Tue 2/20 at 1234, Until Tue 220 at 1234, Routine FENTanyl PF (SUBLIMAZE (PF)) injection Given 06/25/2019 1:55 PM [facility] 25 mcg Slow IV Push, TITRATE - FOR PROCEDURE USE, 1 dose, Starting Tue 20 at 1355, Until Tue 2/20 at 1355, Routine FENTanyl PF (SUBLIMAZE (PF)) injection Given 06/25/2019 2:27 PM [facility] 25 mcg Slow IV Push, TITRATE - FOR PROCEDURE USE, 1 dose, Starting 06/25/19 at 1427, Until Tu06/25/19 at 1427, Routine heparin 1,000 unit/mL injection Given 06/25/2019 12:34 PM [facility] 2,500 Units Slow IV Push, TITRATE - FOR PROCEDURE USE, 1 dose, Starting 06/25/19 at 1234, Until Tu06/25/19 at 1234, Routine heparin 1,000 unit/mL injection Given 06/25/2019 1:02 PM [facility] 4,000 Units Slow IV Push, TITRATE - FOR PROCEDURE USE, 1 dose, Starting 06/25/19 at 1302, Until 06/25/19 at 1302, Routine heparin 1000 unit/mL injection Soln Given 06/24/2019 9:00 PM [facility] 4,000 Units 4,000 Units 4,000 Units, IV Push, ONCE, 1 dose, Mon06/24/19 at 2030, Routine heparin 25,000 unit/250 Restarted 06/25/2019 5:38 AM 9.403 Units/kg/hr 7.25 mL/hr mL (Premixed Bag) in [facility] D5W weight based dosing ACS protocol 12 Units/kg/hr 77.1 kg (9.252 mL/hr, rounded to 9.25 mL/hr), IV Infusion, CONTINUOUS, Starting Mon06/24/19 at 2130, Until Mon06/26/19 at 1600 New Bag 06/24/2019 8:58 PM [facility] 12 Units/kg/hr 9.25 mL/hr insulin NPH (HUMULIN N) injection Given 06/24/2019 8:21 PM [facility] 14 Units Abdomen-SC 14 Units 14 Units, Subcutaneous, QAM+HS, First dose on Mon06/24/19 at 2100, Until Discontinued, Routine KCL (KLOR-CON M20) tablet 40 mEq Given 06/25/2019 9:50 AM [facility] 40 mEq 40 mEq, Oral, Q4H, 2 doses, First dose on Mon06/25/19 at 0800, Last dose on Mon06/25/19 at 1200, Routine KCL (KLOR-CON M20) tablet 40 mEq Given 06/26/2019 6:09 AM [facility] 40 mEq 40 mEq, Oral, ONCE, 1 dose, Mon06/26/19 at 0630, Routine lactated ringers IV infusion New Bag 06/25/2019 1:38 AM [facility] 1,000 mL 100 mL/hr 1,000 mL at 100 mL/hr, 1,000 mL, IV Infusion, ONCE, 1 dose, 06/25/19 at 0115, Routine lidocaine 1% (PF) (XYLOCAINE) Given 06/25/2019 12:31 PM [facility] 5 mL Right Wrist injection Infiltration, TITRATE - FOR PROCEDURE USE, 1 dose, Starting 06/25/19 at 1231, Until 06/25/19 at 1231, Routine magnesium sulfate 4 mEq/mL (50 %) injection 8 Given 06/24/2019 6:00 PM [facility] 8 mEq mEq 8 mEq (1 g), IV Piggyback, ONCE, 1 dose, Mon06/24/19 at 1800, STAT magnesium sulfate in water 2 gram/50 mL (4 %) New Bag 06/25/2019 5:35 AM [facility] 2 g infusion 2 g 2 g, IV Piggyback, ONCE, 1 dose, 06/25/19 at 0615, Routine magnesium sulfate in water 4 gram/50 mL (8 %) New Bag 06/26/2019 9:20 AM [facility] 4 g IV Piggyback 4 g 4 g, IV Piggyback, ONCE, 1 dose, Mon06/26/19 at 0630, Routine midazolam (VERSED) injection Given 06/25/2019 12:15 PM [facility] 1 mg IV Push, TITRATE - FOR PROCEDURE USE, 1 dose, Starting 06/25/19 at 1215, Until 06/25/19 at 1215, Routine midazolam (VERSED) injection Given 06/25/2019 12:31 PM [facility] 1 mg IV Push, TITRATE - FOR PROCEDURE USE, 1 dose, Starting 06/25/19 at 1231, Until Tue 220 at 1231, Routine midazolam (VERSED) injection Given 06/25/2019 1:55 PM [facility] 1 mg IV Push, TITRATE - FOR PROCEDURE USE, 1 dose, Starting 06/25/19 at 1355, Until Tue 2 at 1355, Routine morpHINE injection 4 mg Given 06/24/2019 3:25 PM [facility] 4 mg 4 mg, Slow IV Push, ONCE, 1 dose, 06/24/19 at 1630, STAT morpHINE injection 4 mg Given 06/24/2019 8:22 PM [facility] 4 mg 4 mg, Slow IV Push, ONCE, 1 dose, 06/24/19 at 2100, STAT NaCl 0.9% (NS) bolus infusion New Bag 06/24/2019 3:12 PM [facility] 1,000 mL 999 mL/hr 1,000 mL at 999 mL/hr, 1,000 mL, IV Infusion, ONCE, 1 dose, 06/24/19 at 1515, PIERRE NaCl 0.9% (NS) bolus infusion 250 New Bag 06/25/2019 7:32 PM [facility] 250 mL 999 mL/hr mL at 999 mL/hr, 250 mL, IV Infusion, ONCE, 1 dose, 06/25/19 at 2030, STAT NaCl 0.9% (NS) bolus infusion New Bag 06/25/2019 2:15 PM [facility] 500 mL IV Piggyback, CONTINUOUS PRN, Starting 06/25/19 at 1243, Until 06/25/19 at 1415, STAT New Bag 06/25/2019 12:43 PM [facility] 500 mL nitroglycerin (TRIDIL) 2 mg in 10 mL D5W for Given 06/25/2019 12:34 PM [facility] 0.2 [address] Cath Intravenous, TITRATE - FOR PROCEDURE USE, 1 dose, Starting 06/25/19 at 1234, Until 06/25/19 at 1234, Routine ondansetron (ZOFRAN (PF)) injection 4 mg Given 06/24/2019 3:25 PM [facility] 4 mg 4 mg, Slow IV Push, ONCE, 1 dose, 06/24/19 at 1630, PIERRE perflutren protein-A microsphr (OPTISON) Given 06/25/2019 8:50 AM [facility] 3 mL injection 3 mL 3 mL, IV Push, ONCE, 1 dose, 06/25/19 at 0900, Routine phenylephrine 1 mg/10 mL in NS syringe Given 06/25/2019 12:43 PM [facility] 0.4 mg Intravenous, TITRATE - FOR PROCEDURE USE, 1 dose, Starting 06/25/19 at 1243, Until 06/25/19 at 1243, Routine verapamil (ISOPTIN) injection Given 06/25/2019 12:34 PM [facility] 2.5 mg Intra-arterial, TITRATE - FOR PROCEDURE USE, 1 dose, Starting 06/25/19 at 1234, Until 06/25/19 at 1234, Routine documented in this encounter Insurance Payer Benefit Plan / Subscriber ID Effective Dates Phone Address Type Group [employer] [facility] [id number] 2018-Present Medicare Adv spring HMO (Home) [place], [place] [phone] [id number] (Work) documented as of this encounter Advance Directives Name Relationship Healthcare Agent Communication Relationship Rose Desouza Mother Primary healthcare agent
--- OUTSIDE RECORDS SUMMARY | 2019-07-31 21:50 | XMS REPORT | Summary of Care ---
:1960 Author Organization [facility] Address [address] [place], [place] [id number] Care Team Providers Name Role Phone Fransisco Martin Primary Care Provider Linda Mahan Insurance Hmo Reason for Referral (Routine) Status Reason Specialty Diagnoses / Referred By Referred To Procedures Contact Contact New Request IM-GASTROENTEROLO Diagnoses Epigastric pain Abu-Sharifeh, GY Procedures Discharge Follow-Up: Specialty Service IM-GASTROENTEROLOGY; 4-6 Weeks MD Kendra [address] [place] [address] (Routine) Status Reason Specialty Diagnoses / Referred By Referred To Procedures Contact Contact New Request Case Management Procedures Abu-Sharifeh, CONSULT/REFERRAL MD Kendra [address] [address] (Routine) Status Reason Specialty Diagnoses / Referred By Referred To Procedures Contact Contact New Request IM-CARDIOVASCULAR Diagnoses Epigastric pain Abu-Sharifeh, DISEASE Procedures Discharge Follow-Up: Specialty Service IM-CARDIOVASCULAR DISEASE; 4-6 Weeks MD Kendra [address] [place], [place] [id number] (Routine) Status Reason Specialty Diagnoses / Referred By Referred To Procedures Contact Contact New Request Diagnoses Epigastric pain Abu-Josy, Fransisco Martin Procedures Discharge Follow-up: PCP FRANSISCO MARTIN; 3-5 Days MD Kendra [address] [place] [address] [phone] [place], [place] [phone] Phone: Radiology Services (Routine) Status Reason Specialty Diagnoses / Referred By Referred To Procedures Contact Contact New Request Diagnostic Diagnoses Left foot infection Low, Jessica Radiology Procedures XR FOOT 3+ VW LEFT MD Critsine [address] [address] MRI/CAT Scan (PIERRE) Status Reason Specialty Diagnoses / Referred By Referred To Procedures Contact Contact New Request Diagnostic Diagnoses Epigastric pain Low, Jessica Radiology Procedures CT ABDOMEN PELVIS W CONTRAST MD Cristine [address] [address] Radiology Services (STAT) Status Reason Specialty Diagnoses / Referred By Referred To Procedures Contact Contact New Request Diagnostic Diagnoses Dyspnea, unspecified type Rosemary Carrillo Radiology Procedures XR CHEST 1 VW MD [place]field [address] [address] Reason for Visit Reason Comments Chest Pain Auth/Cert Status Reason Specialty Diagnoses / Referred By Referred To Procedures Contact Contact [facility] [address] [place] [address] [place] [address] Encounter Details Date Type Department Care Team Description 07/17/2019 - Emergency Cardiology (GERALD 9B) Rosemary Carrillo MD [address] [phone] Abdominal pain 07/18/2019 712 Kendra Portillo MD [address] [place], [place] [phone] [place], [place] [phone] Allergies No Known Allergiesdocumented as of this encounter (statuses as of 07/18/2019) Medications Medication Sig Dispensed Refills Start End [...] as unspecified type needed for Chest pain. metoclopramide HCl Take 10 mg by 0 Active 10 mg tablet mouth before meals. insulin NPH 100 Inject SQ 16u 10 Vial 5 Active unit/mL qam and 14u qpm 9 injectionIndicatio ns: Left-sided weakness atorvastatin 80 mg Take 1 tablet by 30 tablet 11 Active tabletIndications: mouth at 0 Unstable angina bedtime. pectoris apixaban 5 mg [...] mouth daily. 0 tabletIndications: Unstable angina pectoris tamsulosin 0.4 mg Take by mouth 0 Active 24 hr capsule daily. lisinopril 2.5 mg Take 2.5 mg by 0 Active tablet mouth daily. clopidogreL 75 mg Take 1 tablet by 30 tablet 11 Active tabletIndications: mouth daily. 0 NSTEMI (non-ST elevated myocardial infarction) insulin regular inject 6 Units 10 Vial 5 07/18/19 Discontinued human 100 unit/mL under the skin 2 9 20 injectionIndicatio (two) times ns: Left-sided daily before weakness breakfast and dinner. HYDROcodone-acetam Take 1 tablet by 24 tablet 0 07/18/19 Discontinued inophen (NORCO) mouth every 6 9 20 5-325 mg (six) hours as tabletIndications: needed for Pain Abdominal pain, (scale 7-10). unspecified abdominal location ticagrelor 90 mg Take 1 tablet by 60 tablet 11 07/18/19 Discontinued tabletIndications: mouth 2 (two) 0 20 Unstable angina times daily. pectoris apixaban 5 mg Take 1 tablet by 60 tablet 0 07/18/19 Discontinued tabletIndications: mouth 2 (two) 0 20 atrial times daily. fibrillation Indications: atrial fibrillation amLODIPine 5 mg Take 5 mg by 0 07/18/19 Discontinued tablet mouth daily. 20 ibuprofen 600 mg Take 600 mg by 0 07/18/19 Discontinued tablet mouth 3 (three) 20 times daily with meals. clopidogreL 75 mg Take 4 tablets 30 tablet 11 07/18/19 Discontinued tabletIndications: by mouth daily 0 20 (Reorder) NSTEMI (non-ST for 1 day, THEN elevated 1 tablet daily myocardial for 30 days. 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 Type 2 diabetes mellitus without complication, without long-term current 01/17 use of insulin Essential hypertension 01/17/2019 Other hyperlipidemia 01/17/2019 Stroke 09/30/2018 Left-sided weakness 09/29/2018 Left sided numbness 09/29/2018 S/P admn tPA in diff fac w/n last 24 hr bef adm to crnt fac 08/30/2018 Unstable angina 08/29/2018 Chest pain 07/13/2018 documented as of this encounter (statuses as of 07/18/2019) Immunizations Name Administration Dates Next Due Influenza Virus Vaccine 02/18/2018 Pneumococcal Polysaccharide, PPSV23 (PNEUMOVAX) 02/18/2018 Td 03/29/2019 documented as of this encounter Social History Tobacco Use Types Packs/Day Years Used Date Former Smoker Cigarettes Quit: 2016 Smokeless Tobacco: Never Used Comments: quit 4 years ago Alcohol Use Drinks/Week oz/Week Comments No 12 Cans of beer 12.0 quit drinking 2013 but drank heavily before this Sex Assigned at Date Recorded Not on file Job Start Date Occupation Industry Not on file Not on file Not on file Travel History Travel Start Travel End No recent travel history available. documented as of this encounter Last Filed Vital Signs Vital Sign Reading Time Taken Comments Blood Pressure 98/55 07/18/2019 7:02 PM MANAGER FINANCIAL Pulse 75 07/18/2019 7:02 PM MANAGER FINANCIAL Temperature 36.4 C (97.5 F) 07/18/2019 7:02 PM MANAGER FINANCIAL Respiratory Rate 18 07/18/2019 7:02 PM MANAGER FINANCIAL Oxygen Saturation 95% 07/18/2019 7:02 PM MANAGER FINANCIAL Inhaled Oxygen Concentration - - Weight 78.5 kg (173 lb) 07/18/2019 1:06 PM MANAGER FINANCIAL Height 170.2 cm (5' 7") 07/18/2019 1:06 PM MANAGER FINANCIAL Body Mass Index 27.1 07/18/2019 1:06 PM MANAGER FINANCIAL documented in this encounter Discharge Instructions Linn Mcrae RN - 07/18/2019 Patient Discharge Instructions Take Home Medications These are medications ordered for you by your healthcare provider. Do not take any other medications or supplements unless advised by your healthcare provider. Current Discharge Medication List START taking these medications Details clopidogreL (PLAVIX) 75 mg Take 75 mg by mouth daily. Qty: 30 tablet, Refills: 11 Start date: 07/19/2019 Associated Diagnoses: NSTEMI (non-ST elevated myocardial infarction) CONTINUE these medications which have NOT CHANGED Details lisinopril (PRINIVIL,ZESTRIL) 2.5 mg Take 2.5 mg by mouth daily. tamsulosin 0.4 mg 24 hr capsule Take by mouth daily. apixaban (ELIQUIS) 5 mg Take 5 mg by mouth 2 (two) times daily. Qty: 60 tablet, Refills: 11 Associated Diagnoses: Paroxysmal atrial fibrillation aspirin 81 mg Take 81 mg by mouth at bedtime. Qty: 30 tablet, Refills: 11 Associated Diagnoses: Unstable angina pectoris atorvastatin (LIPITOR) 80 mg Take 80 mg by mouth at bedtime. Qty: 30 tablet, Refills: 11 Associated Diagnoses: Unstable angina pectoris pantoprazole (PROTONIX) 20 mg Take 20 mg by mouth daily. Qty: 30 tablet, Refills: 1 Associated Diagnoses: Unstable angina pectoris insulin NPH 100 unit/mL injection Inject SQ 16u qam and 14u qpm Qty: 10 Vial, Refills: 5 Associated Diagnoses: Left-sided weakness metoclopramide HCl (REGLAN) 10 mg Take 10 mg by mouth before meals. nitroglycerin (NITROSTAT) 0.[address] 0.4 mg under the tongue every 5 (five) minutes as needed forChest pain. Qty: 1 Bottle, Refills: 0 Associated Diagnoses: Chest pain, unspecified type levothyroxine (SYNTHROID) 50 mcg Take 50 mcg by mouth every morning. venlafaxine (EFFEXOR) 75 mg Take 75 mg by mouth 2 (two) times daily. STOP taking these medications amLODIPine (NORVASC) 5 mg Comments: Reason for Stopping: ibuprofen (IBU) 600 mg Comments: Reason for Stopping: ticagrelor (BRILINTA) 90 mg Comments: Reason for Stopping: Follow-up appointments: For questions regarding follow-up instructions call the Healthcare Hotline at or If you experience any of the following symptoms , please follow up with . For worsening symptoms/changing condition/problems or questions: Non-emergency/urgent: Call the Healthcare Hotline at or or Emergency: Go to the closest emergency room or call 911 AttachmentsThe following attachments cannot be sent through Care Everywhere.Abdominal Pain, Adult (Barbadian)Clopidogrel tablets (Barbadian) Constipation, Treating (Barbadian)Diet: High Fiber, Discharge Instructions ( Barbadian)documented in this encounter Progress Notes Jodie Toscano RN - 07/18/2019 12:34 PM MANAGER FINANCIAL Care Management Discharge Disposition Note (DCDN) 5-2-1 Interventions: Disease specific education;Intensive medication reconciliation/management;Teachback;Clear discharge plan;Follow-up phone calls 5-2-1 Providers: Physician;Nurse;Director Information/Nurse Case Management 5-2-1 Patient Capacity Improvements: Avoidance of adverse events/readmission; Transportation arrangements Discussed with patient/patients family involved in decision making: Patient or family caregiver understands, and agrees with discharge plan. Transportation: Taxi Cab Voucher Mental Status: Alert & Oriented to Person,Place & Time Living Arrangement: Apartment: Upstairs Other living arrangement: Address of living arrangement: [address] [place] [address] Funding Resources: Medicare Replacement Nursing informed of discharge plan: Yes Name of RN informed: Linn Estimated discharge date: 07/18/19 Time: 1500 Additional Information: CC provided Taxi Voucher for discharge transportation home and pt was switched to Plavix from [facility] CM/SW Name & Contact number: Jodie Toscano RN Ph. [phone] The following information has been provided to the facility noted above: reason for the patient discharge or transfer; patients physical and psychosocial status; summary of care, treatment, servicesprovided to patient; and the patient progress toward goals. Jodie Hendrickson RN - 07/18/2019 12:28 PM CSTCare Coordinator Note: CC provided [employer] ([phone]) voucher to his nurse for transportation when discharged. Jodie Toscano RN (Tish), BSN Personnel Representative, Care Management Dept. O: [phone] C: [phone] (Not for patients use.) E: [email or web address] Jodie Hendrickson RN - 07/18/2019 10:46 AM CSTCare Management Social Functional Assessment Patient Name: Ernie Rooney Age: [age] year old Sex: male Patient's Previous Admission Date at [facility]: 06/24/2019 Current diagnosis and co-morbidities: CP Readmission Questions: Was patient discharged from any acute care hospital within the last 30 days: Yes Were all questions regarding previous illness/diagnosis answered prior to discharge: Yes Did you have any difficulties with your discharge instructions: No Were you able to go to your follow-up discharge appointments: No If No, comment: because doctor that follow up appointment was made with did not take insurance. Pt will call insurance to see who he can follow up with Any difficulties after discharge with medications: No Any difficulties after discharge with physical conditions, support, or other limitations?: No Did patient refuse services that were recommended on the previous admission: No Was patient non-compliant with the previously recommended treatment: No If admitted from the ED did you call your primary MD or place a sick call/ request with your provider?: No Social Functional Assessment: Primary language spoken/preferred: Barbadian Mental Status: Alert & Oriented to Person,Place & Time Information given by: Self Patient's support system: Parent Name and number of support system: Rose Desouza(mother) [phone] Primary Lab Rn: Self MPOA: No Living Arrangement: Apartment: Upstairs Address of living arrangement : [address] [place] [address] Persons living in home: Self;Other Names & numbers of persons living in home: Janeth Haynes(friend)[phone] Barriers to returning home: None Baseline functional status- ambulation: Requires minimal to moderate assistance( uses walker) Functional status-baseline personal care: Independent Baseline functional status- driving: Independent Baseline functional status- grocery shopping: Independent Functional status-baseline housekeeping: Independent Functional status-baseline meal prep: Independent Current functional status same as prior: Yes Do you have a PCP?: Yes Name of PCP: Fransisco Martin Home Health Care Agency: No Provider Services: No DME Company: No Equipment: Walker Hemodialysis: No Community resources utilized: SSA/SSI/Medicaid Funding Resources: Medicare Replacement Medicare Replacement name and information: [facility] Prescription coverage plan: Medicare Part D Pharmacy where meds are filled: Other Other pharmacy: [address] Anticipated services prior to disharge: Continue Medical Eval Expected mode of discharge transportation: Other(Pt states he will need taxi voucer) Other expected mode of transportation: Taxi Voucher Additional info required for discharge planning: Pending medical evaluation Recommended discharge plan: Home SFA Complete: Social Functional Assessment complete: Yes Alcohol Use Screening (AUDIT-C) How often do you have a drink containing alcohol?: Never SCORE: 0 Did patient elect to have resources provided: No Role of Care Management explained. Any issues or concerns with obtaining/affording your medications at home: no. Are you or your support system able to pepper picker medications at discharge: yes. Describe: self. CC placed CHP referral for Medication management and education. Jodie Toscano RN (Tish), BSN Personnel Representative, Care Management Dept. O: [phone] C: [phone] (Not for patients use.) E: [email or web address] documented in this encounter Plan of Treatment Name Type Priority Associated Order Schedule Diagnoses EKG-12 LEAD ROUTINE HEART STATION PIERRE ONCE for 1 Occurrences starting 07/18/2019 until 07/18/2019 aPTT (for use with LAB Routine FOR FOLLOW-UP TESTING Heparin Practice until discontinued Guideline). Note: starting 07/18/2019, Draw and Send all Lab 1 completed STAT. URINALYSIS LAB Routine ONCE for 1 Occurrences starting 07/18/2019 until 07/18/2019 URINE CULTURE LAB Routine ONCE for 1 Occurrences starting 07/18/2019 until 07/18/2019 GALV/CLC ONLY - URINE LAB Routine ONCE for 1 DRUG (IMMUNOASSAY) - Occurrences starting COMPREHENSIVE DRUG 07/18/2019 until SCREEN 07/18/2019 Lipid Panel (Total LAB Add-on TOMORROW AM AT 0600 Cholesterol, for 1 Occurrences Triglycerides, HDL) - starting 07/19/2019 Fasting until 07/19/2019 Health Maintenance Due Date Last Done Comments [...] 09/29/2018, 09/18/2018, Additional history exists CREATININE (SERUM) 07/17/2020 07/17/2019, 06/26/2019, 06/25/2019, Additional history exists PNEUMOCOCCAL 0-64 YEARS COMBINED Completed 02/18/2018 SERIES HEPATITIS C (HCV) SCREEN Completed 08/29/2018 documented as of this encounter Implants Implanted Type Area Sight Effects Specialist Device Shelf Model / Identifier Expiration Date Serial / Lot [employer] PACEMAKER [id number] / Assurity [id number] / Pacemaker Metal Bar-05/22/1994 Back Implanted: 05/22/1994 (Quantity not on file) Metal Bar-05/22/2002 Arm Implanted: 05/22/2002 (Quantity not on file) documented as of this encounter Procedures Procedure Name Priority Date/Time Associated Comments Diagnosis POCT GLUCOSE Routine 07/18/2019 5:33 Results for this (AUTOMATED) PM MANAGER FINANCIAL procedure are in the results section. ACTIVATED PARTIAL Routine 07/18/2019 2:45 Results for this THRMPLAS AMARILIS PM MANAGER FINANCIAL procedure are in the results section. SEDIMENTATION RATE Routine 07/18/2019 2:45 Results for this PM MANAGER FINANCIAL procedure are in the results section. ECHO ROUTINE W/DOPPLER PIERRE 07/18/2019 11:35 Chest pain, COLOR AM MANAGER FINANCIAL unspecified type TROPONIN I Routine 07/18/2019 11:10 Results for this AM MANAGER FINANCIAL procedure are in the results section. POCT GLUCOSE Routine 07/18/2019 9:35 Results for this (AUTOMATED) AM MANAGER FINANCIAL procedure are in the results section. XR FOOT 3+ VW LEFT Routine 07/18/2019 6:20 Left foot infection Results for this AM MANAGER FINANCIAL procedure are in the results section. CT ABDOMEN PELVIS W PIERRE 07/18/2019 5:56 Epigastric pain Results for this CONTRAST AM MANAGER FINANCIAL procedure are in the results section. POCT GLUCOSE Routine 07/18/2019 4:18 Results for this (AUTOMATED) AM MANAGER FINANCIAL procedure are in the results section. TROPONIN I Routine 07/18/2019 4:12 Results for this AM MANAGER FINANCIAL procedure are in the results section. C-REACTIVE PROTEIN Add-on 07/18/2019 4:12 Results for this AM MANAGER FINANCIAL procedure are in the results section. LIPASE Add-on 07/18/2019 4:12 Results for this AM MANAGER FINANCIAL procedure are in the results section. CBC WITH DIFFERENTIAL STAT 07/17/2019 10:03 Dyspnea, Results for this PM MANAGER FINANCIAL unspecified type procedure are in the results section. N-TERMINAL PRO-BNP STAT 07/17/2019 10:03 Dyspnea, Results for this PM MANAGER FINANCIAL unspecified type procedure are in the results section. PROTHROMBIN TIME / INR STAT 07/17/2019 10:03 Dyspnea, Results for this PM MANAGER FINANCIAL unspecified type procedure are in the results section. CBC WITH DIFFERENTIAL STAT 07/17/2019 10:03 Dyspnea, Results for this PM MANAGER FINANCIAL unspecified type procedure are in the results section. COMP. METABOLIC PANEL STAT 07/17/2019 10:03 Dyspnea, Results for this ([id number]) PM MANAGER FINANCIAL unspecified type procedure are in the results section. TROPONIN I STAT 07/17/2019 10:03 Dyspnea, Results for this PM MANAGER FINANCIAL unspecified type procedure are in the results section. XR CHEST 1 VW STAT 07/17/2019 9:56 Dyspnea, Results for this PM MANAGER FINANCIAL unspecified type procedure are in the results section. EKG-12 LEAD Routine 07/17/2019 9:45 PM MANAGER FINANCIAL EKG-12 LEAD Routine 07/17/2019 9:39 PM MANAGER FINANCIAL EKG-12 LEAD Routine 07/17/2019 9:37 PM MANAGER FINANCIAL documented in this encounter Results POCT GLUCOSE (AUTOMATED) (07/18/2019 5:33 PM MANAGER FINANCIAL) POCT GLU 241 (H) 70 - 110 mg/dL [facility] Specimen Blood Performing Organization Address City/[facility] Phone Number [facility] CLIA: [id number], [address] [place] [address] [place] SEDIMENTATION RATE (07/18/2019 2:45 PM MANAGER FINANCIAL) ESR 53 (H) 0 - 10 mm/HR [facility] Specimen Blood - ARM, RIGHT Performing Organization Address City/[facility] Phone Number [facility] CLIA: [id number], [address] [place] [address] [facility] aPTT (for use with Heparin Practice Guideline). Note: Draw and Send all Lab STAT. (07/18/2019 2:45 PM MANAGER FINANCIAL) APTT Patient 53 (H) 26 - 36 Seconds [facility] Specimen Blood - ARM, RIGHT Performing Organization Address [facility] Phone Number [facility] CLIA: [id number], [address] [place] [address] [facility] TROPONIN I (07/18/2019 11:10 AM MANAGER FINANCIAL) Pathologist [facility] TROPONIN I 0.031 <=0.034 ng/mL [facility] Specimen Blood - ARM, RIGHT Narrative Performed At Equal or Less than 0.034 ng/ml---Normal [facility] Note: Cardiac troponin [...] patient's use of biotin. Performing Organization Address City/[facility] Phone Number [facility] CLIA: [id number], [address] [place] [address] [facility] POCT GLUCOSE (AUTOMATED) (07/18/2019 9:35 AM MANAGER FINANCIAL) [facility] POCT GLU 170 (H) 70 - 110 mg/dL [facility] Specimen Blood Performing Organization Address [facility] Phone Number [facility] CLIA: [id number], [address] [place] [phone] [facility] XR FOOT 3+ VW LEFT (07/18/2019 6:20 AM MANAGER FINANCIAL) Specimen Impressions Performed At FINDINGS/IMPRESSION: PACS/VR/DOSE No acute fracture or dislocation. Soft tissue swelling at the plantar aspect of the healed with lucency may represent an ulcer. No underlying bony erosions or periosteal reaction are present to suggest osteomyelitis. Vascular calcifications are noted Narrative Performed At EXAM: XR FOOT 3+ VW LEFT PACS/VR/DOSE HISTORY: 59 years-old Male heel soft tissue swelling, evaluate to screen for calcaneal osteomyelitis COMPARISON: None. Procedure Note [facility], Radiant Results Inft User - 07/18/2019 9:19 AM MANAGER FINANCIAL EXAM: XR FOOT 3+ VW LEFT HISTORY: 59 years-old Male heel soft tissue swelling, evaluate to screen for calcaneal osteomyelitis COMPARISON: None. IMPRESSION FINDINGS/IMPRESSION: No acute fracture or dislocation. Soft tissue swelling at the plantar aspect of the healed with lucency may represent an ulcer. No underlying bony erosions or periosteal reaction are present to suggest osteomyelitis. Vascular calcifications are noted Performing Organization Address [facility] Phone Number PACS/VR/DOSE CT ABDOMEN PELVIS W CONTRAST (07/18/2019 5:56 AM MANAGER FINANCIAL) Specimen Impressions Performed At PACS/VR/DOSE No CT findings of acute intra-abdominal or pelvic abnormality. Mild hepatic steatosis. Unchanged nonopacification of the left common femoral, left internal and left external iliac veins. IAditi MD., have reviewed this study and agree with the above report. Narrative Performed At EXAM: CT ABDOMEN AND PELVIS WITH CONTRAST PACS/VR/DOSE HISTORY: Abd pain, acute, generalized COMPARISON: CT Abdomen and Pelvis with intravenous contrast, 02/13/2019. TECHNIQUE AND FINDINGS: Contiguous axial imaging from the level of the lung bases through the pubic symphysis was performed after the uncomplicated administration of 120 cc of intravenous Omnipaque contrast and oral Omnipaque contrast. Coronal and sagittal reconstructions were obtained. FINDINGS: LOWER THORAX: Stable minimal right lower lung fibrosis. Unchanged mild nodularity in the right lower lobe (3:16). Prior median sternotomy surgical changes in pacemaker with leads in the right atrium and right ventricle. LIVER: Normal in size and contour. Mild diffusely decreased attenuation of the hepatic parenchyma. Stable 0.8 cm segment V/VIII hypoattenuating foci too small to further characterize, likely hepatic cyst (601:47). GALLBLADDER AND BILIARY TREE: Prior cholecystectomy. The common bile duct is dilated at 1.0 cm, likely reservoir effect. SPLEEN: No splenomegaly. PANCREAS: No ductal dilation or masses. ADRENAL GLANDS: No adrenal nodules. KIDNEYS: Stable 2.6 cm cyst in the anterior interpolar region of the right kidney. Stable 0.8 hypoattenuating foci, too small to further characterize, likely simple renal cyst. Unchanged nonspecific bilateral perinephric fat stranding. No perinephritic fluid collection. PERITONEUM AND RETROPERITONEUM: No free air or fluid. Small fat containing umbilical hernia. LYMPH NODES: No lymphadenopathy. GI TRACT: No dilation or wall thickening. Redundant sigmoid colon. The visualized appendix is unremarkable. PELVIS/BLADDER: The urinary bladder is significantly distended without focal or diffuse thickening of the urinary bladder wall. The prostate appears unremarkable. VESSELS: Mild atherosclerotic calcifications of the abdominal aorta. Unchanged nonopacification of the left common femoral, common iliac, external iliac veins. BONES AND SOFT TISSUES: No suspicious lytic or sclerotic bony lesions. Stable L4-L5 vertebral surgical hardware. Unchanged 1.2 cm osseous fragment in the right gluteal soft tissues. (3: 1:30). Procedure Note [facility], Radiant Results Inft User - 07/18/2019 9:46 AM MANAGER FINANCIAL EXAM: CT ABDOMEN AND PELVIS WITH CONTRAST HISTORY: Abd pain, acute, generalized COMPARISON: CT Abdomen and Pelvis with intravenous contrast, 02/13/2019. TECHNIQUE AND FINDINGS: Contiguous axial imaging from the level of the lung bases through the pubic symphysis was performed after the uncomplicated administration of 120 cc of intravenous Omnipaque contrast and oral Omnipaque contrast. Coronal and sagittal reconstructions were obtained. FINDINGS: LOWER THORAX: Stable minimal right lower lung fibrosis. Unchanged mild nodularity in the right lower lobe (3:16). Prior median sternotomy surgical changes in pacemaker with leads in the right atrium and right ventricle. LIVER: Normal in size and contour. Mild diffusely decreased attenuation of the hepatic parenchyma. Stable 0.8 cm segment V/VIII hypoattenuating foci too small to further characterize, likely hepatic cyst (601:47). GALLBLADDER AND BILIARY TREE: Prior cholecystectomy. The common bile duct is dilated at 1.0 cm, likely reservoir effect. SPLEEN: No splenomegaly. PANCREAS: No ductal dilation or masses. ADRENAL GLANDS: No adrenal nodules. KIDNEYS: Stable 2.6 cm cyst in the anterior interpolar region of the right kidney. Stable 0.8 hypoattenuating foci, too small to further characterize, likely simple renal cyst. Unchanged nonspecific bilateral perinephric fat stranding. No perinephritic fluid collection. PERITONEUM AND RETROPERITONEUM: No free air or fluid. Small fat containing umbilical hernia. LYMPH NODES: No lymphadenopathy. GI TRACT: No dilation or wall thickening. Redundant sigmoid colon. The visualized appendix is unremarkable. PELVIS/BLADDER: The urinary bladder is significantly distended without focal or diffuse thickening of the urinary bladder wall. The prostate appears unremarkable. VESSELS: Mild atherosclerotic calcifications of the abdominal aorta. Unchanged nonopacification of the left common femoral, common iliac, external iliac veins. BONES AND SOFT TISSUES: No suspicious lytic or sclerotic bony lesions. Stable L4-L5 vertebral surgical hardware. Unchanged 1.2 cm osseous fragment in the right gluteal soft tissues. (3: 1:30). IMPRESSION No CT findings of acute intra-abdominal or pelvic abnormality. Mild hepatic steatosis. Unchanged nonopacification of the left common femoral, left internal and left external iliac veins. IAditi MD., have reviewed this study and agree with the above report. Performing Organization Address City/[facility]/Zipcode Phone Number PACS/VR/DOSE POCT GLUCOSE (AUTOMATED) (07/18/2019 4:18 AM MANAGER FINANCIAL) POCT GLU 253 (H) 70 - 110 mg/dL [facility] Specimen Blood Performing Organization Address [facility] Phone Number [facility] CLIA: [id number], [address] [place] [address] [facility] C-REACTIVE PROTEIN (07/18/2019 4:12 AM MANAGER FINANCIAL) CRP 0.4 <0.8 mg/dL [facility] Specimen Blood - VENOUS Performing Organization Address [facility] Phone Number [facility] CLIA: [id number], [address] [place] [address] [facility] LIPASE (07/18/2019 4:12 AM MANAGER FINANCIAL) LIPASE 112 0 - 220 U/L [facility] Specimen Blood - VENOUS Performing Organization Address [facility] Phone Number [facility] CLIA: [id number], [address] [place] [address] [facility] TROPONIN I (07/18/2019 4:12 AM MANAGER FINANCIAL) TROPONIN I 0.013 <=0.034 ng/mL [facility] Specimen Blood - VENOUS Narrative Performed At Equal or Less than 0.034 ng/ml---Normal [facility] Note: Cardiac troponin [...] patient's use of biotin. Performing Organization Address [facility]/State/Zipcode Phone Number [facility] CLIA: [id number], [address] [place] [address] [facility] CBC WITH DIFFERENTIAL (07/17/2019 10:03 PM MANAGER FINANCIAL) WBC 9.67 4.20 - 10.70 [facility] 10*3/L [facility] RBC 3.74 (L) 4.26 - 5.52 [facility] 10*6/L [facility] HGB 11.5 (L) 12.2 - 16.4 [facility] g/dL [facility] HCT 32.8 (L) 38.4 - 49.3 % [facility] MCV 87.7 81.7 - 95.6 fL [facility] MCH 30.7 26.1 - 32.7 pg [facility] MCHC 35.1 (H) 31.2 - 35.0 [facility] g/dL [facility] RDW-SD 44.4 38.5 - 51.6 fL [facility] RDW-CV 13.8 12.1 - 15.4 % [facility] PLT 296 150 - 328 [facility] 10*3/L [facility] MPV 9.5 (L) 9.8 - 13.0 fL [facility] NRBC/100 WBC 0.0 0.0 - 10.0 /100 [facility] WBCs [facility] NRBC x10^3 <0.01 10*3/L [facility] GRAN MAT (NEUT) % 66.6 % [facility] IMM GRAN % 0.80 % [facility] LYMPH % 21.8 % [facility] MONO % 8.3 % [facility] EOS % 2.2 % [facility] BASO % 0.3 % [facility] GRAN MAT x10^3(ANC) 6.44 1.99 - 6.95 [facility] 10*3/uL [facility] IMM GRAN x10^3 0.08 (H) 0.00 - 0.06 [facility] 10*3/uL [facility] LYMPH x10^3 2.11 1.09 - 3.23 [facility] 10*3/uL [facility] MONO x10^3 0.80 0.36 - 1.02 [facility] 10*3/uL [facility]ITAL [facility] EOS x10^3 0.21 0.06 - 0.53 [facility] 10*3/uL [facility] BASO x10^3 0.03 0.01 - 0.09 [facility] 10*3/uL [facility] Specimen Blood - VENOUS Performing Organization Address [facility] Phone Number [facility] CLIA: [id number], [address] [place] [address] TROPONIN I (07/17/2019 10:03 PM MANAGER FINANCIAL) TROPONIN I 0.015 <=0.034 ng/mL [facility] Specimen Blood - VENOUS Narrative Performed At Equal or Less than 0.034 ng/ml---Normal [facility] Note: Cardiac troponin begins to rise [...] patient's use of biotin. Performing Organization Address [facility] Phone Number [facility] CLIA: [id number], [address] [place] [address] N-TERMINAL PRO-BNP (07/17/2019 10:03 PM MANAGER FINANCIAL) NT-proBNP 226 (H) <=125 pg/mL [facility] Specimen Blood - VENOUS Narrative Performed At Biotin has been reported to cause a negative [facility] bias, interpret results relative to patient's use of biotin. Performing Organization Address City/[facility] Phone Number [facility] CLIA: [id number], [address] [place] [address] PROTHROMBIN TIME / INR (07/17/2019 10:03 PM MANAGER FINANCIAL) PROTIME PATIENT 13.0 12.0 - 14.7 [facility] Seconds [facility] INR 1.0Comment: Normal [facility] INR <1.1; Warfarin HOSPITAL Therapeutic range LABORATORY 2.0 to 3.0 or 2.5 to 3.5, depending upon the indications. Specimen Blood - VENOUS Performing Organization Address City/State/Zipcode Phone Number [facility] CLIA: [id number], [address] [place] [address] [phone] COMP. METABOLIC PANEL (01637) (07/17/2019 10:03 PM MANAGER FINANCIAL) Pathologist [facility] NA 138 135 - 145 [facility] mmol/L [facility] K 4.4 3.5 - 5.0 [facility] mmol/L [facility] CL 102 98 - 108 mmol/L [facility] CO2 TOTAL 22 (L) 23 - 31 mmol/L [facility] AGAP 14 2 - 16 [facility] BUN 16 7 - 23 mg/dL [facility] GLUCOSE 373 (H) 70 - 110 mg/dL [facility] CREATININE 0.71 0.60 - 1.25 [facility] mg/dL [facility] TOTAL BILI 0.3 0.1 - 1.1 mg/dL [facility] CALCIUM 10.0 8.6 - 10.6 [facility] mg/dL [facility] T PROTEIN 7.6 6.3 - 8.2 g/dL [facility] ALBUMIN 4.7 3.5 - 5.0 g/dL [facility] ALK PHOS 183 (H) 34 - 122 U/L [facility] ALTv 48 5 - 50 U/L [facility] AST(SGOT) 24 13 - 40 U/L [facility] eGFR Calculation 112.8 mL/min/1.73m2 [facility] ([facility] HOSPITAL LABORATORY Lithuanian) eGFR Calculation 136.7 mL/min/1.73m2 [facility] ([facility] LABORATORY Specimen Blood - VENOUS Narrative Performed At Association of Glomerular Filtration Rate (GFR) [facility] and Staging of Kidney Disease* + [...] abnormalities in imaging tests). Performing Organization Address [facility]/Zipcode Phone Number [facility] CLIA: [id number], [address] [place], [place] [id number] [phone] XR CHEST 1 VW (07/17/2019 9:56 PM MANAGER FINANCIAL) Specimen Impressions Performed At PACS/VR/DOSE No acute cardiopulmonary abnormality. Preliminary Report Dictated by Resident: Pacheco Craft MD., have reviewed this study and agree with the above report. Narrative Performed At XR CHEST 1 VW PACS/VR/DOSE Comparison: 06/24/2019 History: SOB X 2 days Findings: Left chest wall pacemaker leads are in unchanged position. The lungs are clear. No pleural effusion or pneumothorax. The heart is normal in size. No acute osseous abnormality is detected. Procedure Note [facility], Radiant Results Inft User - 07/17/2019 11:41 PM MANAGER FINANCIAL XR CHEST 1 VW Comparison: 06/24/2019 History: SOB X 2 days Findings: Left chest wall pacemaker leads are in unchanged position. The lungs are clear. No pleural effusion or pneumothorax. The heart is normal in size. No acute osseous abnormality is detected. IMPRESSION No acute cardiopulmonary abnormality. Preliminary Report Dictated by Resident: Pacheco Craft MD., have reviewed this study and agree with the above report. Performing Organization Address City/State/Zipcode Phone Number PACS/VR/DOSE documented in this encounter Visit Diagnoses Diagnosis Chest pain, unspecified type - Primary Dyspnea, unspecified type Noncompliance with medication regimen Personal history of noncompliance with medical treatment, presenting hazards to health Mild anemia Anemia, unspecified Uncontrolled type 2 diabetes mellitus with hyperglycemia Epigastric pain Abdominal pain, epigastric Left foot infection Unspecified local infection of skin and subcutaneous tissue NSTEMI (non-ST elevated myocardial infarction) Acute myocardial infarction, subendocardial infarction, episode of care unspecified Abdominal pain Abdominal pain, unspecified site documented in this encounter Administered Medications Medication Order MAR Action Action Date Dose Rate Site aspirin chewable tablet 81 mg Given 07/18/2019 9:36 AM MANAGER FINANCIAL 81 mg 81 mg, Oral, DAILY, First dose on Annie 07/18/19 at 0900, Until Discontinued, Routine Given 07/17/2019 10:08 PM MANAGER FINANCIAL 81 mg atorvastatin (LIPITOR) tablet 80 mg Given 07/18/2019 7:47 PM MANAGER FINANCIAL 80 mg 80 mg, Oral, QHS, First dose on Annie 07/18/19 at 2100, Until Discontinued, Routine dextrose 10% (D10W) bolus infusion 250 mL 250 mL, IV Infusion, PRN - SEE INSTRUCTIONS, BS<70, Starting Annie 07/18/19 at 0359, Dextrose 10% 250 mL bag contains: 8 yo=593 mL 20 wr=690 mL 25 kh=540 mL ( whole bag) The maximum rate at which dextrose can be infused without producing glycosuria is 0.5 g/kg/hour. BUD: If wrapper is open bag is good for 30 days at room temperature. , dicyclomine (BENTYL) capsule 10 mg Given 07/18/2019 7:47 PM MANAGER FINANCIAL 10 mg 10 mg, Oral, QID, First dose on Annie 07/18/19 at 1000, Until Discontinued, Routine Given 07/18/2019 5:43 PM MANAGER FINANCIAL 10 mg Given 07/18/2019 2:04 PM MANAGER FINANCIAL 10 mg glucagon (GLUCAGEN DIAGNOSTIC KIT) injection 1 mg 1 mg, Intramuscular, PRN, Starting Annie 07/18/19 at 0359, Until Discontinued, PIERRE, Blood Glucose < or=70 mg/dL and patient is unable to swallow or has mental changes. heparin (1,000 unit/mL, 10 mL vial) for Rebolusing FOR REBOLUSING, Starting Mon07/18/19 at 0320, Until Discontinued, Routine, Dosing based on aPTT testing parameters (refer to continuous heparin drip order)., insulin NPH (HUMULIN N) Given 07/18/2019 5:44 PM MANAGER FINANCIAL 14 Units Right Upper Arm-SC injection 14 Units 14 Units, Subcutaneous, QPM, First dose on Mon07/18/19 at 1700, Until Discontinued, Routine insulin NPH (HUMULIN N) Given 07/18/2019 9:40 AM MANAGER FINANCIAL 8 Units Right Upper Arm-SC injection 16 Units 16 Units, Subcutaneous, QAM, First dose on Mon07/18/19 at 0900, Until Discontinued, Routine levothyroxine (SYNTHROID) tablet 50 mcg Given 07/18/2019 9:40 AM MANAGER FINANCIAL 50 mcg 50 mcg, Oral, QAM-0600, First dose on Mon07/18/19 at 0600, Until Discontinued, Routine metoclopramide HCl (REGLAN) tablet 10 mg Given 07/18/2019 5:43 PM MANAGER FINANCIAL 10 mg 10 mg, Oral, AC, First dose on Mon07/18/19 at 0730, Until Discontinued, Routine Given 07/18/2019 2:08 PM MANAGER FINANCIAL 10 mg Given 07/18/2019 9:36 AM MANAGER FINANCIAL 10 mg pantoprazole (PROTONIX) EC tablet 40 mg Given 07/18/2019 9:36 AM MANAGER FINANCIAL 40 mg 40 mg, Oral, DAILY, First dose on Mon07/18/19 at 0900, Until Discontinued, Routine Sliding Scale Insulin - Aspart Given 07/18/2019 2:08 PM 4 Units Right Upper (NOVOLOG) + Fsbg Testing MANAGER FINANCIAL Arm-SC Subcutaneous, Q4H, First dose on Mon07/18/19 at 0415, Until Discontinued, Routine Given 07/18/2019 4:30 AM MANAGER FINANCIAL 3 Units Left Arm tamsulosin (FLOMAX) capsule 0.4 mg Given 07/18/2019 7:47 PM MANAGER FINANCIAL 0.4 mg 0.4 mg, Oral, QHS, First dose on Mon07/18/19 at 2100, Until Discontinued, Routine venlafaxine (EFFEXOR) tablet 75 mg Given 07/18/2019 8:44 PM MANAGER FINANCIAL 75 mg 75 mg, Oral, BID, First dose on Mon07/18/19 at 0800, Until Discontinued, Routine Given 07/18/2019 9:36 AM MANAGER FINANCIAL 75 mg Medication Order MAR Action Action Date Dose Rate Site clopidogreL (PLAVIX) tablet 300 Given 07/18/2019 7:47 PM MANAGER FINANCIAL 300 mg mg 300 mg, Oral, ONCE, 1 dose, Annie 07/18/19 at 2000, Routine FENTanyl PF (SUBLIMAZE (PF)) injection 25 Given 07/18/2019 12:30 AM MANAGER FINANCIAL 25 mcg mcg 25 mcg, Slow IV Push, ONCE, 1 dose, Annie 07/18/19 at 0130, STAT FENTanyl PF (SUBLIMAZE (PF)) injection 50 Given 07/17/2019 10:07 PM MANAGER FINANCIAL 50 mcg mcg 50 mcg, Slow IV Push, ONCE, 1 dose, [facility] 07/17/19 at 2300, Routine heparin 1000 unit/mL injection Soln Given 07/18/2019 4:30 AM MANAGER FINANCIAL 4,000 Units 4,000 Units 4,000 Units, IV Push, ONCE, 1 dose, Annie 07/18/19 at 0330, Routine heparin 25,000 Dose/Rate Verify 07/18/2019 2:50 PM 12 Units/kg/hr 9.25 mL/ hr unit/250 mL (Premixed MANAGER FINANCIAL Bag) in D5W weight based dosing ACS protocol 12 Units/kg/hr 77.1 kg (9.252 mL/hr, rounded to 9.25 mL/hr), IV Infusion, CONTINUOUS, Starting Annie 07/18/19 at 0430, Until Annie 07/18/19 at 1724 New Bag 07/18/2019 4:30 AM MANAGER FINANCIAL 12 Units/kg/hr 9.25 mL/hr insulin regular human (HUMULIN R) Given 07/17/2019 11:37 PM MANAGER FINANCIAL 5 Units Abdomen-SC injection 5 Units 5 Units, Subcutaneous, ONCE, 1 dose, Annie 07/18/19 at 0045, Routine iohexol (OMNIPAQUE 350 BULK-150 mL) Given 07/18/2019 5:50 AM MANAGER FINANCIAL 120 mL injection 120 mL 120 mL, Intravenous, ONCE, 1 dose, Annie 07/18/19 at 0600, Routine magnesium citrate solution 296 mL Given 07/18/2019 10:50 AM MANAGER FINANCIAL 296 mL 296 mL, Oral, ONCE, 1 dose, Annie 07/18/19 at 0930, PIERRE morpHINE injection 4 mg Given 07/17/2019 10:41 PM MANAGER FINANCIAL 4 mg 4 mg, Slow IV Push, ONCE, 1 dose, 07/17/19 at 2345, STAT nitroglycerin (NITROSTAT) sublingual tablet Given 07/17/2019 11:24 PM MANAGER FINANCIAL 0.4 mg 0.4 mg 0.4 mg, Sublingual, ONCE, 1 dose, Annie 07/18/19 at 0015, PIERRE ondansetron (ZOFRAN (PF)) injection 4 mg Given 07/17/2019 10:08 PM MANAGER FINANCIAL 4 mg 4 mg, Slow IV Push, ONCE, 1 dose, 07/17/19 at 2300, PIERRE perflutren protein-A microsphr (OPTISON) Given 07/18/2019 1:11 PM MANAGER FINANCIAL 3 mL injection IV Push, TITRATE - FOR PROCEDURE USE, 1 dose, Starting Annie 07/18/19 at 1311, Until Annie 07/18/19 at 1311, Routine ticagrelor (BRILINTA) tablet 90 mg Given 07/17/2019 10:20 PM MANAGER FINANCIAL 90 mg 90 mg, Oral, ONCE NOW, 1 dose, Mon07/17/19 at 2300, Routine ticagrelor (BRILINTA) tablet 90 mg Given 07/18/2019 4:12 AM MANAGER FINANCIAL 90 mg 90 mg, Oral, ONCE NOW, 1 dose, Annie 07/18/19 at 0330, PIERRE ticagrelor (BRILINTA) tablet 90 mg Given 07/18/2019 9:36 AM MANAGER FINANCIAL 90 mg 90 mg, Oral, BID, First dose on Annie 07/18/19 at 0800, Until Discontinued, Routine documented in this encounter Insurance Payer Benefit Plan / Subscriber ID Effective Dates Phone Address Type Group [employer] [id number] 2018-Present Medicare Adv spring HMO (Home) [place], [place] [phone] (Work) documented as of this encounter Advance Directives Name Relationship Healthcare Agent Communication Relationship Rose Desouza Mother Primary healthcare agent
--- OUTSIDE RECORDS SUMMARY | 2019-07-31 21:51 | XMS REPORT | Summary of Care ---
:1960 Author Organization [facility] - [facility] Address [address] [place] [address] Care Team Providers Name Role Phone Mario Nika Simmons Primary Care Provider Linda Mahan Insurance Hmo Reason for Visit Reason Comments Transition Of Care Encounter Details Date Type Department Care Team Description 07/19/2019 Transition [facility] [phone] Allergies No Known Allergiesdocumented as of this encounter (statuses as of 07/19/2019) Medications Medication Sig Dispensed Refills Start Date [...] as needed unspecified type for Chest pain. metoclopramide HCl 10 Take 10 mg by mouth 0 Active mg tablet before meals. insulin NPH 100 Inject SQ 16u qam 10 Vial 5 04/11/2019 Active unit/mL and 14u qpm injectionIndications: Left-sided weakness atorvastatin 80 mg Take 1 tablet by 30 tablet 11 06/26/2019 Active tabletIndications: mouth at bedtime. Unstable angina pectoris apixaban 5 mg Take 1 tablet by 60 tablet 11 06/26/2019 Active tabletIndications: mouth 2 (two) times atrial fibrillation daily. Indications: atrial fibrillation aspirin 81 mg Take 1 tablet by 30 tablet 11 06/26/2019 Active chewable mouth at bedtime. tabletIndications: Unstable angina pectoris pantoprazole 20 mg EC Take 1 tablet by 30 tablet 1 06/26/2019 Active tabletIndications: mouth daily. Unstable angina pectoris tamsulosin 0.4 mg 24 Take by mouth 0 Active hr capsule daily. lisinopril 2.5 mg Take 2.5 mg by 0 Active tablet mouth daily. clopidogreL 75 mg Take 1 tablet by 30 tablet 11 07/19/2019 Active tabletIndications: mouth daily. 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 Type 2 diabetes mellitus without complication, without long-term current 01/17 use of insulin Essential hypertension 01/17/2019 Other hyperlipidemia 01/17/2019 Stroke 09/30/2018 Left-sided weakness 09/29/2018 Left sided numbness 09/29/2018 S/P admn tPA in diff fac w/n last 24 hr bef adm to crnt fac 08/30/2018 Unstable angina 08/29/2018 Chest pain 07/13/2018 documented as of this encounter (statuses as of 07/19/2019) Immunizations Name Administration Dates Next Due Influenza [...] 12/23/2019 06/24/2019, 01/17/2019, 08/29/2018, Additional history exists CREATININE (SERUM) 07/17/2020 07/17/2019, 06/26/2019, 06/25/2019, Additional history exists LDL-C 07/18/2020 07/18/2019, 02/13/2019, 09/29/2018, Additional history exists PNEUMOCOCCAL 0-64 YEARS COMBINED Completed 02/18/2018 SERIES HEPATITIS C (HCV) SCREEN Completed 08/29/2018 documented as of this encounter Implants Implanted Type Area Aerial Photographer Device Shelf Model / Identifier Expiration Date Serial / Lot [employer] PACEMAKER [id number] / Assurity [id number] / Pacemaker Metal Bar-05/22/1994 Back Implanted: 05/22/1994 (Quantity not on file) Metal Bar-05/22/2002 Arm Implanted: 05/22/2002 (Quantity not on file) documented as of this encounter Results Not on filedocumented in this encounter Insurance Payer Benefit Plan / Subscriber ID Effective Dates Phone Address Type Group [place] [id number] 2018-Present Medicare Adv [place] HMO documented as of this encounter Advance Directives Name Relationship Healthcare Agent Communication Relationship Rose Desouza Mother Primary healthcare agent
--- OUTSIDE RECORDS SUMMARY | 2019-07-31 21:51 | XMS REPORT | Summary of Care ---
:1960 Author Organization [facility] - [facility] Address [address] [place] [address] Care Team Providers Name Role Phone Mario Nika Simmons Primary Care Provider Linda Mahan Insurance Hmo Reason for Visit Reason Comments Transition Of Care Encounter Details Date Type Department Care Team Description 07/19/2019 Transition of Care [facility]ilda [facility] [phone] Allergies No Known Allergiesdocumented as of this [...] myocardial infarction) 01/24/2019 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 PACEMAKER [id number] / Assurity [id number] / Pacemaker Metal Bar-05/22/1994 Back Implanted: 05/22/1994 (Quantity not on file) Metal Bar-05/22/2002 Arm Implanted: 05/22/2002 (Quantity not on file) documented as of this encounter Results Not on filedocumented in this encounter Insurance Payer Benefit Plan / Subscriber ID Effective Dates Phone Address Type Group [place] [id number] 2018-Present Medicare Adv [place] HMO documented as of this encounter Advance Directives Name Relationship Healthcare Agent Communication Relationship Rose Desouza Mother Primary healthcare agent
[2019-07-31] MEDS ORDERED: FAMOTIDINE 20 MG/2 ML VIAL IV ONE (22:01)
[2019-07-31] MEDS ORDERED: NA CHLORIDE 0.9% 1,000 ML ONE (22:01)
[2019-07-31] MEDS ORDERED: MORPHINE 4 MG/ML SYR ONE ×2 (22:01→23:27)
[2019-07-31] MEDS ORDERED: ONDANSETRON 4 MG/2 ML VIAL ONE (22:02)
[2019-07-31 22:31] LABS: Absolute Lymphocytes (CBC) 1.6 K/uL (0.7-4.9); Basophils % 0.2 % (0-1.3); Hematocrit 31.4 % (39.6-49.0); Lymphocytes % 12.8 % (15.3-44.8); Protime INR 1.34; RBC Red Blood Cell Count 3.54 M/uL (4.33-5.43)
--- NOTE | 2019-07-31 22:33 | RAD REPORT ---
EXAM DESCRIPTION: Adrián Single View07/31/2019 10:19 pm CLINICAL HISTORY: Chest pain COMPARISON: 2019 FINDINGS: The lungs appear clear of acute infiltrate. The heart is mildly enlarged. Pacemaker leads are in place. IMPRESSION: No acute abnormalities displayed
[2019-07-31 23:38] LABS: ALT/SGPT 18 U/L (12-78); AST/SGOT 12 U/L (15-37); Alkaline Phosphatase 126 U/L (45-117); BUN Blood Urea Nitrogen 14 mg/dL (7-18); Bicarbonate 18 mmol/L (21-32); Bilirubin Direct 0.1 mg/dL (0-0.2); Bilirubin Total 0.4 mg/dL (0.2-1.0); Glucose Level 301 mg/dL (74-106); Lipase 74 U/L (73-393); NT PRO-BNP 716 pg/mL (<125); Potassium 3.2 mmol/L (3.5-5.1); Sodium Level 139 mmol/L (136-145); Troponin (Emerg Dept Use Only) < 0.02 ng/mL (0.0-0.045)
[2019-08-01] MEDS ORDERED: INSULIN -REGULAR HUMAN 50 UNIT/0.5 ML ML ONE (00:35)
[2019-08-01] MEDS ORDERED: POTASSIUM 25 MEQ EFFERV TAB ONE (00:35)
[2019-08-01] MEDS ORDERED: NA CHLORIDE 0.9% 500 ML ONE (00:35)
--- NOTE | 2019-08-01 01:30 | EDPHYS ---
Physician Documentation [facility] Name: Ernie Rooney Age: 59 yrs Sex: Male : 1960 Arrival Date: 07/31/2019 Time: 21:42 Bed 7 Private MD: ED Physician Mustapha Cole HPI: 07/30 21:50 This 59 yrs old Male presents to ER via Unassigned with complaints of chest caitlyn and abd pain. 21:50 The patient or guardian reports chest pain that is located primarily in the substernal caitlyn area, anterior chest wall. Onset: just prior to arrival, today. The patient presents with abdominal pain abdominal distention in the upper abdomen, in the lower abdomen. Onset: The symptoms/episode began/occurred 2 day(s) ago. The pain does not radiate. Associated signs and symptoms: none. Modifying factors: The symptoms are alleviated by remaining still, the symptoms are aggravated by movement, pressure. Historical: - Allergies: 22:06 NKA; ah - PMHx: 22:06 Diabetes - NIDDM; Hypertension; Pacemaker; ah - PSHx: 22:06 Heart stents; ah - Immunization history:: Flu vaccine is up to date. - Family history:: not pertinent. - Social history:: Smoking status: Patient denies any tobacco usage or history of. Patient/guardian denies using tobacco. ROS: 21:50 Constitutional: Negative for fever, chills, and weight loss, Eyes: Negative for injury, caitlyn pain, redness, and discharge, ENT: Negative for injury, pain, and discharge, Neck: Negative for injury, pain, and swelling, Cardiovascular: Negative for chest pain, palpitations, and edema, Respiratory: Negative for shortness of breath, cough, wheezing, and pleuritic chest pain, Back: Negative for injury and pain, : Negative for injury, bleeding, discharge, and swelling, MS/Extremity: Negative for injury and deformity, Skin: Negative for injury, rash, and discoloration, Neuro: Negative for headache, weakness, numbness, tingling, and seizure, Psych: Negative for depression, anxiety, suicide ideation, homicidal ideation, and hallucinations, Allergy/Immunology: Negative for hives, rash, and allergies, Endocrine: Negative for neck swelling, polydipsia, polyuria, polyphagia, and marked weight changes, Hematologic/Lymphatic: Negative for swollen nodes, abnormal bleeding, and unusual bruising. 21:50 Abdomen/GI: Positive for abdominal pain, of the right upper quadrant, left upper quadrant, right lower quadrant and left lower quadrant. Exam: 21:50 Constitutional: This is a well developed, well nourished patient who is awake, alert, caitlyn and in no acute distress. Head/Face: Normocephalic, atraumatic. Eyes: Pupils equal round and reactive to light, extra-ocular motions intact. Lids and lashes normal. Conjunctiva and sclera are non-icteric and not injected. Cornea within normal limits. Periorbital areas with no swelling, redness, or edema. ENT: Nares patent. No nasal discharge, no septal abnormalities noted. Tympanic membranes are normal and external auditory canals are clear. Oropharynx with no redness, swelling, or masses, exudates, or evidence of obstruction, uvula midline. Mucous membranes moist. Neck: Trachea midline, no thyromegaly or masses palpated, and no cervical lymphadenopathy. Supple, full range of motion without nuchal rigidity, or vertebral point tenderness. No Meningismus. Chest/axilla: Normal chest wall appearance and motion. Nontender with no deformity. No lesions are appreciated. Cardiovascular: Regular rate and rhythm with a normal S1 and S2. No gallops, murmurs, or rubs. Normal PMI, no JVD. No pulse deficits. Respiratory: Lungs have equal breath sounds bilaterally, clear to auscultation and percussion. No rales, rhonchi or wheezes noted. No increased work of breathing, no retractions or nasal flaring. Back: No spinal tenderness. No costovertebral tenderness. Full range of motion. Male : Normal genitalia with no discharge or lesions. Skin: Warm, dry with normal turgor. Normal color with no rashes, no lesions, and no evidence of cellulitis. MS/ Extremity: Pulses equal, no cyanosis. Neurovascular intact. Full, normal range of motion. Neuro: Awake and alert, GCS 15, oriented to person, place, time, and situation. Cranial nerves II-XII grossly intact. Motor strength 5/5 in all extremities. Sensory grossly intact. Cerebellar exam normal. Normal gait. Psych: Awake, alert, with orientation to person, place and time. Behavior, mood, and affect are within normal limits. Vital Signs: 21:40 BP 105 / 65; Pulse 86; ah 21:40 Resp 19; Pulse Ox 100% ; Weight 72.57 kg; Height 5 ft. 7 in. (170.18 cm); Pain 9/10; ah 21:40 BP 105 / 65; Pulse 86; Resp 19; Temp 98.1; Pulse Ox 100% on R/A; 23:00 BP 127 / 76; Pulse 88; Resp 17; Pulse Ox 100% ; 07/31 00:00 BP 128 / 73; Pulse 83; Resp 15; Pulse Ox 100% ; 01:00 BP 103 / 65; Pulse 84; Resp 17; Pulse Ox 100% ; 02:00 BP 108 / 72; Pulse 79; Resp 15; Pulse Ox 100% ; 07/30 21:40 Body Mass Index 25.06 (72.57 kg, 170.18 cm) [facility]: 07/30 21:41 Patient medically screened. [facility] 21:53 Data reviewed: vital signs, nurses notes, lab test result(s), EKG, radiologic studies, [facility] CT scan, plain films. 07/30 21:52 Order name: Basic Metabolic Panel; Complete Time: 23:52 [facility] 07/30 21:52 Order name: CBC with Diff; Complete Time: 23:52 [facility] 07/30 21:52 Order name: LFT's; Complete Time: 23:52 [facility] 07/30 21:52 Order name: Magnesium; Complete Time: 23:52 [facility] 07/30 21:52 Order name: NT PRO-BNP; Complete Time: 23:52 [facility] 07/30 21:52 Order name: PT-INR; Complete Time: 23:52 [facility] 07/30 21:52 Order name: Troponin (emerg Dept Use Only); Complete Time: 23:52 [facility] 07/30 21:52 Order name: Lipase; Complete Time: 23:52 [facility] 07/30 21:52 Order name: Urine Culture [facility] 07/31 05:49 Order name: CBC with Automated Diff; Complete Time: 09:39 [facility] 07/31 05:55 Order name: Basic Metabolic Panel; Complete Time: 09:39 [facility] 07/31 05:55 Order name: Creatine Phosphokinase; Complete Time: 09:39 [facility] 07/31 05:55 Order name: CKMB Creatine Kinase MB; Complete Time: 09:39 [facility] 07/31 05:55 Order name: Troponin I; Complete Time: 09:39 [facility] 07/30 21:52 Order name: XRAY Chest (1 view); Complete Time: 23:52 [facility] 07/30 21:52 Order name: EKG; Complete Time: 21:54 [facility] 07/30 22:12 Order name: CT Aorta for Dissection [facility] 07/31 05:55 Order name: Lipid Profile; Complete Time: 09:39 [facility] 07/31 12:06 Order name: CT [facility] 07/31 16:22 Order name: Troponin I [facility] 07/30 21:52 Order name: Cardiac monitoring; Complete Time: 22:29 [facility] 07/30 21:52 Order name: EKG - Nurse/Tech; Complete Time: 21:58 [facility] 07/30 21:52 Order name: IV Saline Lock; Complete Time: 22:27 [facility] 07/30 21:52 Order name: Labs collected and sent; Complete Time: 22:27 [facility] 07/30 21:52 Order name: O2 Per Protocol; Complete Time: 22:27 [facility] 07/30 21:52 Order name: O2 Sat Monitoring; Complete Time: 22:27 [facility] 07/31 11:11 Order name: Labs - recollect needed: recollect troponin; Complete Time: 15:25 bd Administered Medications: 22:15 Drug: Pepcid 20 mg Route: IVP; Site: left forearm; [facility] 23:00 Follow up: Response: No adverse reaction [facility] 22:15 Drug: Zofran (Ondansetron) 4 mg Route: IVP; Site: left forearm; [facility] 23:00 Follow up: Response: No adverse reaction [facility] 22:15 Drug: morphine 4 mg {Note: RASS 1.} Route: IVP; Site: left forearm; [facility] 23:00 Follow up: Response: Pain is decreased; RASS: Alert and Calm (0) [facility] 22:20 Drug: NS 0.9% 500 ml Route: IV; Rate: bolus; Site: left forearm; [facility] 07/31 07:41 Follow up: Response: No adverse reaction; IV Status: Completed infusion 07/30 22:28 Not Given (Duplicate Order): morphine 4 mg Sub-Q once; RASS on ADMIN: Combtv4, Very caitlyn Agttd3, Agttd2, Rstlss1, AlertClm0, Drwsy-1, Lt Sdtn-2, Mod Sdtn-3, Dp Sdtn-4, UnArsble-5 23:00 Drug: NS 0.9% 1000 ml Route: IV; Rate: 125 ml/hr; Site: left forearm; 07/31 02:00 Follow up: IV Status: IV converted to saline lock 07/30 23:26 Drug: morphine 4 mg {Note: RASS 1.} Route: IVP; Site: left forearm; [facility] 07/31 05:30 Follow up: Response: No adverse reaction 00:45 Drug: NS 0.9% 500 ml Route: IV; Rate: bolus; Site: left antecubital; 01:45 Follow up: IV Status: Completed infusion; IV Intake: 500ml 00:45 Drug: Insulin Regular Human 8 units {Co-Signature: radha1 (Mariza Waller RN).} Route: IVP; Site: left forearm; 05:29 Follow up: Response: No adverse reaction 00:47 Drug: Potassium Effervescent Tablet 25 mEq Route: PO; 05:30 Follow up: Response: No adverse reaction Disposition: 08/01/19 01:29 Hospitalization ordered by Heather Gaffney for Inpatient Admission. Preliminary diagnosis are Other chest pain, Type 2 diabetes mellitus, Abdominal tenderness, Presence of automatic (implantable) cardiac defibrillator - discharged per patient. - Bed requested for [facility] ER HOLD. - Status is Inpatient Admission. sg - Condition is Fair. - Problem is new. - Symptoms have improved. Signatures: Dispatcher [employer] EDMS Katlin Harris Diana RN RN Praveen Mccain RN RN Mustapha Cole MD MD cha Rittger, Kevin, MD MD kdr Pena, Laura, RN RN lp1 Armida Gordillo RN RN Mariza Waller RN lp1 Corrections: (The following items were deleted from the chart) 02:06 01:29 Hospitalization Ordered by Heather Gaffney MD for Inpatient Admission. Preliminary dw diagnosis is Other chest pain; Type 2 diabetes mellitus; Abdominal tenderness; Presence of automatic (implantable) cardiac defibrillator - discharged per patient. Bed requested for Telemetry/MedSurg (Inpatient). Status is Inpatient Admission. Condition is Fair. Problem is new. Symptoms have improved. caitlyn 18:40 02:06 08/01/2019 01:29 Hospitalization Ordered by Heather Gaffney MD for Inpatient Admission. Preliminary diagnosis is Other chest pain; Type 2 diabetes mellitus; Abdominal tenderness; Presence of automatic (implantable) cardiac defibrillator - discharged per patient. Bed requested for [facility] ER HOLD. Status is Inpatient Admission. Condition is Fair. Problem is new. Symptoms have improved. dw
--- NOTE | 2019-08-01 01:30 | ER ---
Nurse's Notes [facility] Name: Ernie Rooney Age: 59 yrs Sex: Male : 1960 Arrival Date: 07/31/2019 Time: 21:42 Bed 7 Private MD: Diagnosis: Other chest pain;Type 2 diabetes mellitus;Abdominal tenderness;Presence of automatic (implantable) cardiac defibrillator-discharged per patient Presentation: 07/30 21:40 Chief complaint: EMS states: complains of SOB, his defibrillator started going off about 1 hour ago and states that it went off approx 5x during route. They report vitals as 94/63, rr 22, 98%, HR 60-130, and BS 467. Chief complaint:. Coronavirus screen: The patient has NOT traveled to a country currently being monitored by the [facility] within the last 14 days. The patient has NOT had contact with any known and/or suspected case of coronavirus. Ebola Screen: No symptoms or risks identified at this time. Initial Sepsis Screen: Does the patient meet any 2 criteria? No. Patient's initial sepsis screen is negative. Does the patient have a suspected source of infection? No. Patient's initial sepsis screen is negative. Risk Assessment: Do you want to hurt yourself or someone else? Patient reports no desire to harm self or others. 21:40 Method Of Arrival: EMS: [facility] 21:40 Acuity: TONE 2 Historical: - Allergies: 22:06 NKA; - PMHx: 22:06 Diabetes - NIDDM; Hypertension; Pacemaker; - PSHx: 22:06 Heart stents; - Immunization history:: Flu vaccine is up to date. - Family history:: not pertinent. - Social history:: Smoking status: Patient denies any tobacco usage or history of. Patient/guardian denies using tobacco. Screenin:28 Abuse screen: Denies threats or abuse. Nutritional screening: No deficits noted. Tuberculosis screening: No symptoms or risk factors identified. Fall Risk None identified. Assessment: 22:17 General: Appears uncomfortable, Behavior is cooperative. Pain: Complains of pain in abdomen Pain does not radiate. Pain at worst was 10 out of 10 on a pain scale. Quality of pain is described as shooting, stabbing, Pain began Pt states that hes had abdominal pain for 9 months but seems to be worse today Is intermittent. Neuro: Level of Consciousness is awake, alert, obeys commands, Oriented to person, place, time, situation. Cardiovascular: Reports chest pain, Heart tones S1 S2 present Capillary refill < 3 seconds Patient's skin is warm and dry. Respiratory: Reports shortness of breath at rest cough that is productive, since 1 month Airway is patent Respiratory effort is even, unlabored, Respiratory pattern is regular, symmetrical, Breath sounds are clear. GI: Abdomen is non-distended, Last BM was July 31, 2019. Bowel sounds present X 4 quads. Abdomen is tender to palpation Guarding noted Reports abdominal pain. : No signs and/or symptoms were reported regarding the genitourinary system. EENT: No signs and/or symptoms were reported regarding the EENT system. Derm:. 23:20 Reassessment: Patient states pain to abdomen returning at this time, noted to be lp1 yelling out due to pain, rated 9/10 on pain scale; Dr. Cole notified, verbal order for Morphine 4mg IV now. 07/31 00:20 Reassessment: Patient appears in no apparent distress at this time. Patient and/or ah family updated on plan of care and expected duration. Pain level reassessed. Patient is alert, oriented x 3, equal unlabored respirations, skin warm/dry/pink. Patient states feeling better. 01:20 Reassessment: Patient appears in no apparent distress at this time. Patient and/or ah family updated on plan of care and expected duration. Pain level reassessed. Patient is alert, oriented x 3, equal unlabored respirations, skin warm/dry/pink. No needs voiced at this time Patient denies pain at this time. 02:20 Reassessment: Patient appears in no apparent distress at this time. Patient and/or ah family updated on plan of care and expected duration. Pain level reassessed. Patient is alert, oriented x 3, equal unlabored respirations, skin warm/dry/pink. Patient denies pain at this time. 18:18 Reassessment: pt DC to home as ordered by , see [facility] charting. sg Vital Signs: 07/30 21:40 BP 105 / 65; Pulse 86; ah 21:40 Resp 19; Pulse Ox 100% ; Weight 72.57 kg; Height 5 ft. 7 in. (170.18 cm); Pain 9/10; 21:40 BP 105 / 65; Pulse 86; Resp 19; Temp 98.1; Pulse Ox 100% on R/A; ah 23:00 BP 127 / 76; Pulse 88; Resp 17; Pulse Ox 100% ; 07/31 00:00 BP 128 / 73; Pulse 83; Resp 15; Pulse Ox 100% ; 01:00 BP 103 / 65; Pulse 84; Resp 17; Pulse Ox 100% ; 02:00 BP 108 / 72; Pulse 79; Resp 15; Pulse Ox 100% ; 07/30 21:40 Body Mass Index 25.06 (72.57 kg, 170.18 cm) ED Course: 07/30 21:41 Mustapha Cole MD is Attending Physician. [facility] 21:42 Patient arrived in ED. la1 21:53 Armida Gordillo, RN is Primary Nurse. 22:05 Triage completed. 22:10 Initial lab(s) drawn, by ne, sent to lab. Maintain EMS IV. Dressing intact. Good blood lp1 return noted. Site clean \T\ dry. Gauge \T\ site: 20g to left forearm. 22:20 XRAY Chest (1 view) In Process Unspecified. EDMS 22:29 Arm band placed on right wrist. 22:30 No provider procedures requiring assistance completed. 22:30 Patient admitted, IV remains in place. 22:30 Patient has correct armband on for positive identification. Placed in gown. Bed in low ah position. panel monitor on. Pulse ox on. NIBP on. 07/31 01:28 Heather Gaffney MD is Hospitalizing Provider. [facility] 09:06 EKG done, by cinetechnician. reviewed by Angel Merlos MD. at1 Administered Medications: 07/30 22:15 Drug: Pepcid 20 mg Route: IVP; Site: left forearm; lp1 23:00 Follow up: Response: No adverse reaction lp1 22:15 Drug: Zofran (Ondansetron) 4 mg Route: IVP; Site: left forearm; lp1 23:00 Follow up: Response: No adverse reaction lp1 22:15 Drug: morphine 4 mg {Note: RASS 1.} Route: IVP; Site: left forearm; lp1 23:00 Follow up: Response: Pain is decreased; RASS: Alert and Calm (0) [facility] 22:20 Drug: NS 0.9% 500 ml Route: IV; Rate: bolus; Site: left forearm; [facility] 07/31 07:41 Follow up: Response: No adverse reaction; IV Status: Completed infusion 07/30 22:28 Not Given (Duplicate Order): morphine 4 mg Sub-Q once; RASS on ADMIN: Combtv4, Very caitlyn Agttd3, Agttd2, Rstlss1, AlertClm0, Drwsy-1, Lt Sdtn-2, Mod Sdtn-3, Dp Sdtn-4, UnArsble-5 23:00 Drug: NS 0.9% 1000 ml Route: IV; Rate: 125 ml/hr; Site: left forearm; 07/31 02:00 Follow up: IV Status: IV converted to saline lock 07/30 23:26 Drug: morphine 4 mg {Note: RASS 1.} Route: IVP; Site: left forearm; [facility] 07/31 05:30 Follow up: Response: No adverse reaction 00:45 Drug: NS 0.9% 500 ml Route: IV; Rate: bolus; Site: left antecubital; 01:45 Follow up: IV Status: Completed infusion; IV Intake: 500ml 00:45 Drug: Insulin Regular Human 8 units {Co-Signature: radha1 (Mariza Waller RN).} Route: IVP; Site: left forearm; 05:29 Follow up: Response: No adverse reaction 00:47 Drug: Potassium Effervescent Tablet 25 mEq Route: PO; 05:30 Follow up: Response: No adverse reaction Intake: 01:45 IV: 500ml; Total: 500ml. Outcome: 01:29 Decision to Hospitalize by Provider. [facility] 02:06 Admitted to ER Hold. Please see [facility] for further documentation. 02:06 Condition: stable 02:06 Instructed on the need for admit. 18:40 Patient left the ED. sg Signatures: Dispatcher [employer] EDPraveen Maher RN RN Mustapha San MD MD cha Pena, Laura, RN RN lp1 Cecelia Yanez, supervisor cigar processing EKG Tat1 Brendan Davis, MANAGER OF GLOBAL-C MANAGER OF GLOBAL-Armida cMcarthy RN RN Mariza Waller RN lp1 Corrections: (The following items were deleted from the chart) 07/30 23:27 23:20 Reassessment: Patient states pain to abdomen returning at this time, noted to be lp1 yelling out due to pain; Dr. Cole notified, verbal order for Morphine 4mg IV now. lp1
[2019-08-01] MEDS ORDERED: MORPHINE 4 MG/ML SYR IV PRN (01:37)
[2019-08-01] MEDS ORDERED: ACETAMINOPHEN 500 MG TAB PO PRN (01:37)
[2019-08-01] MEDS ORDERED: ALPRAZOLAM 0.25 MG TABLET PO PRN (01:37)
[2019-08-01 05:36] LABS: Absolute Lymphocytes (CBC) 1.6 K/uL (0.7-4.9); Basophils % 0.5 % (0-1.3); Hematocrit 28.6 % (39.6-49.0); Lymphocytes % 15.1 % (15.3-44.8); MPV 8.2 fL (7.6-11.3); RBC Red Blood Cell Count 3.23 M/uL (4.33-5.43)
[2019-08-01] MEDS ORDERED: NA CHLORIDE 0.9% 1,000 ML ONE ×2 (05:42→15:44)
[2019-08-01] MEDS: NA CHLORIDE 0.9% 1,000 ML IV SCH ×2 (05:45→12:00)
[2019-08-01 05:53] VITALS: BMI 25.0
[2019-08-01 05:54] LABS: BUN Blood Urea Nitrogen 13 mg/dL (7-18); Bicarbonate 24 mmol/L (21-32); CKMB Creatine Kinase MB < 1.0 ng/mL (0.3-3.6); Creatine Phosphokinase 64 U/L (39-308); Glucose Level 131 mg/dL (74-106); HDL Cholesterol 38 mg/dL (40-60); LDL Cholesterol, Calculated 121 (<130); Potassium 3.2 mmol/L (3.5-5.1); Sodium Level 141 mmol/L (136-145); Troponin I < 0.02 ng/mL (0.0-0.045)
--- NOTE | 2019-08-01 07:29 | P.SSS ---
Patient History Date of Service: 08/01/19 Reason for admission: Chest pain rule out acute coronary syndrome History of Present Illness: Patient is a 59-year-old gentleman who is been in the hospital on numerous occasion with chest discomfort. Patient recently had a heart catheterization in April. Patient has also had bypass surgery. However, the cardiac catheterization revealed that the bypass grafts were completely occluded. Patient has been in and out of the hospital since that time with some chest discomfort. However, he has not had any elevated troponins. He came into the hospital with similar complaints. Emergency room physician wanted to admit him for observation. At this time he will be admitted for further workup for his chest pain. If his serial troponins and EKG are negative will go ahead and discharge him for outpatient follow-up. Allergies No Known Allergies Allergy (Verified 10/19/12 16:51) Home Medications: Amlodipine Besylate [Norvasc] 5 mg PO DAILY 11/19/18 Famotidine [Pepcid*] 20 mg PO DAILY 11/19/18 Gabapentin [Neurontin*] 300 mg PO TID 11/19/18 Metoclopramide HCl [Reglan] 10 mg PO TIDWM 11/19/18 Tamsulosin [Flomax*] 0.4 mg PO DAILY 11/19/18 lisinopriL [Prinivil*] 2.5 mg PO DAILY 11/19/18 Aspirin Chewable [Aspirin Chewable*] 81 mg PO BEDTIME 05/11/19 Atorvastatin Calcium [Lipitor] 80 mg PO DAILY 05/11/19 Hum Insulin NPH/Reg Insulin Hm [Humulin 70-30 Vial] 16 units SQ DAILY 05/11/19 Ticagrelor [Brilinta*] 90 mg PO BID 05/11/19 Metoprolol Tartrate 25 mg PO BID #60 tablet 05/13/19 Apixaban [Eliquis] 5 mg PO BID 08/01/19 Ibuprofen [Ibu] 600 mg PO Q8H 08/01/19 Ondansetron HCl [Zofran] 4 mg PO Q8H 08/01/19 Pantoprazole Sodium [Protonix] 20 mg PO DAILY 08/01/19 - Past Medical/Surgical History Has patient received pneumonia vaccine in the past: Yes Diabetic: Yes -: MO -: GERD -: Hypertension -: Anxiety; depression -: DM insulin dependent -: Hypothyroidism -: enlarged prostate -: cataract in the left eye -: fibromyalgia -: hyperlipidemia -: neuropathy -: pacemaker placement May 2017 -: triple bypass 2002 4 stents -: back surgeries x 6 -: arthroscopic surgeries bilateral knees -: left forearm rodding -: Cholecystectomy -: Appendectomy -: tonsillectomy - Family History Mother -: Heart disease, Hypertension grandparents -: Diabetes, Stroke - Social History Smoking Status: Former smoker Alcohol use: No CD- Drugs: No Caffeine use: Yes Place of Residence: Home Review of Systems 10-point ROS is otherwise unremarkable Physical Examination - Vital Signs Temperature: 97.1 F Blood Pressure: 108/70 Pulse: 70 Respirations: 14 Pulse Ox (%): 100 - Physical Exam General: Alert, In no apparent distress, Oriented x3 HEENT: Atraumatic, PERRLA, Mucous membr. moist/pink, EOMI, Sclerae nonicteric Neck: Supple, 2+ carotid pulse no bruit, No LAD, Without JVD or thyroid abnormality Respiratory: Clear to auscultation bilaterally, Normal air movement Cardiovascular: Regular rate/rhythm, Normal S1 S2, No murmurs Gastrointestinal: Normal bowel sounds, Soft and benign, Non-distended, No tenderness Musculoskeletal: No clubbing, No swelling, No tenderness Integumentary: No rashes Neurological: Normal gait, Normal speech, Normal strength at 5/5 x4 extr, Normal tone, Sensation intact, Cranial nerves 3-12 intact, Normal affect Lymphatics: No axilla or inguinal lymphadenopathy - Studies Laboratory Data (last 24 hrs) 07/31/19 22:10: PT 15.6 H, INR 1.34 07/31/19 22:10: WBC 12.2 H, Hgb 10.8 L, Hct 31.4 L, Plt Count 344 07/31/19 22:10: Sodium 139, Potassium 3.2 L, BUN 14, Creatinine 1.46 H, Glucose 301 H, Magnesium 2.0, Total Bilirubin 0.4, AST 12 L, ALT 18, Alkaline Phosphatase 126 H, Lipase 74 - Diagnosis (Problem(s)) (1) Chest pain, rule out acute myocardial infarction Current Visit: Yes Status: Acute (2) Gastroparesis Current Visit: No Status: Acute (3) History of CVA with residual deficit Current Visit: No Status: Acute (4) Depression Onset Date: 11/08/17 Current Visit: No Status: Chronic Qualifiers: (5) Diabetes mellitus Onset Date: 11/08/17 Current Visit: No Status: Chronic Qualifiers: Diabetes mellitus type: type 2 Diabetes mellitus custodial insulin use: with intermediate school teacher use Diabetes mellitus complication status: with other specified complication Qualified Code(s): E11.69 - Type 2 diabetes mellitus with other specified complication; Z79.4 - intermediate teacher (current) use of insulin (6) History of pacemaker Onset Date: 11/08/17 Current Visit: No Status: Chronic (7) Hyperlipidemia Onset Date: 11/08/17 Current Visit: No Status: Chronic Qualifiers: (8) Hypertension Onset Date: 11/08/17 Current Visit: No Status: Chronic Qualifiers: (9) Hypothyroidism Onset Date: 11/08/17 Current Visit: No Status: Chronic Qualifiers: Treatment Summary: Plan at this time is to get serial troponins and EKG and if these are negative then will go ahead and discharge patient home. Patient will have outpatient follow with Cardiology in 1-2 weeks. Patient will also need to see his PCP. Patient has had chronic pain and this needs to be better managed as an outpatient. He tends to use the emergency room to manage his pain issues. He is not very compliant with taking his medications either. Hopefully, he will understand the importance of taking his medication and he will be following up with his physician on a regular basis so he does not continue to go to the ER for similar issues. At this time if his workup is negative he will be discharged once his 3rd troponin comes back. - Disposition Discharge Date: 08/01/19 Disposition: ROUTINE DISCHARGE Condition: GOOD Patient Discharge Instructions: OK TO DC IV AND DC HOME. FOLLOW-UP WITH PRIMARY CARE PROVIDER IN 1-2 WEEKS. FOLLOW-UP WITH CARDIOLOGY IN 1-2 WEEKS. RETURN TO THE ER IF symptoms worsen. CALL or TEXT DR. ZAMORA AT [phone] IF ANY QUESTIONS REGARDING HOSPITAL STAY. PLEASE CALL THE FLOOR AT [phone] IF ANY MEDICATION OR NURSING QUESTIONS. Diet: AHA Activity: Fall precautions Critical Care: No Time Spent Managing Pts Care (In Minutes): 45
[2019-08-01] MEDS ORDERED: KCL 20 MEQ/100 mL IVPB 20 MEQ/100 ML BAG IV SCH (08:00)
[2019-08-01] MEDS ORDERED: ENOXAPARIN 40 MG/0.4 ML SQ ONE (08:11)
[2019-08-01] MEDS ORDERED: ASPIRIN 325 MG TAB ONE (08:11)
[2019-08-01] MEDS ORDERED: METOPROLOL TAR 25 MG TAB ONE (08:11)
[2019-08-01] MEDS ORDERED: KCL 20 MEQ/100 mL IVPB 20 MEQ/100 ML BAG IV ONE (08:12)
[2019-08-01] MEDS ORDERED: MORPHINE 4 MG/ML SYR ONE ×2 (08:29→15:42)
--- NOTE | 2019-08-01 08:52 | EKG ---
Test Date: 2019-07-31 Test Time: 21:45:07 Wood And Hardware Outfitter: Andrew MEEHAN MEASUREMENT RESULTS: Intervals: Rate: 83 DE: 154 QRSD: 160 QT: 494 QTc: 580 [place]: P: 8 DE: 154 QRS: -61 T: 105 INTERPRETIVE STATEMENTS: Atrial-sensed ventricular-paced rhythm Abnormal ECG Compared to ECG 05/12/2019 04:27:22 Sinus rhythm no longer present First degree AV block no longer present Myocardial infarct finding no longer present ST (T wave) deviation no longer present Possible ischemia no longer present Electronically Signed On 08-01-19 08:50:30 CDT by Luca Royal
[2019-08-01] MEDS ORDERED: ASPIRIN 325 MG TAB PO SCH (09:00)
[2019-08-01] MEDS ORDERED: METOPROLOL TAR 50 MG TAB PO SCH (09:00)
[2019-08-01] MEDS ORDERED: ENOXAPARIN 40 MG/0.4 ML SQ SCH (09:00)
--- NOTE | 2019-08-01 11:12 | EKG ---
Test Date: 2019-08-01 Test Time: 08:58:44 Crate Repairer: NEYDA MEASUREMENT RESULTS: Intervals: Rate: 77 CA: 234 QRSD: 82 QT: 428 QTc: 484 [place]: P: 38 CA: 234 QRS: 5 T: 263 INTERPRETIVE STATEMENTS: Sinus rhythm with 1st degree AV block Lateral infarct, age undetermined Inferior infarct, age undetermined ST & T wave abnormality, consider anterior ischemia Abnormal ECG Compared to ECG 07/31/2019 21:45:07 First degree AV block now present Myocardial infarct finding now present ST (T wave) deviation now present Possible ischemia now present Ventricular-paced complex(es) or rhythm no longer present Atrial-sensed ventricular-paced complex(es) or rhythm no longer present Electronically Signed On 08-01-19 11:11:20 CDT by Luca Royal
--- NOTE | 2019-08-01 11:18 | RAD REPORT ---
EXAM DESCRIPTION: CT - Angio Aorta For Dissection - 08/01/2019 6:29 am CLINICAL HISTORY: The patient is 59 years old and is Male; Abdominal distention;Dyspnea;Dissection TECHNIQUE: Axial computed tomographic angiography images of the chest, abdomen and pelvis with intra venous contrast. Sagittal and coronal reformatted images were created and reviewed. This CT exam was performed using one or more of the following dose reduction techniques: automated exposure cont rol, adjustment of the mA and/or kV according to patient size, and/or use of iterative reconstruction technique. MIP reconstructed images were created and reviewed. COMPARISON: No relevant prior studies available. FINDINGS: VASCULATURE: AORTA: No acute findings. No aortic aneurysm. No dissection. PULMONARY ARTERIES: There are no obvious filling defects identified within the pulmonary arterie s to suggest pulmonary embolism. GREAT VESSELS OF AORTIC ARCH: A vascular graft within the left subclavian artery is present. N o dissection. No arterial occlusion or significant stenosis. CELIAC TRUNK AND MESENTERIC ARTERIES: No acute findings. No occlusion or significant stenosis. RENAL ARTERIES: No acute findings. No occlusion or significant stenosis. ILIAC ARTERIES: No acute findings. No occlusion or significant stenosis. CHEST: LUNGS: Unremarkable. No mass. No consolidation. PLEURAL SPACE: Unremarkable. No significant effusion. No pneumothorax. HEART: Unremarkable. No cardiomegaly. No significant pericardial effusion. ABDOMEN: LIVER: Unremarkable. No mass. GALLBLADDER AND BILE DUCTS: Surgical clips are present in the right upper quadrant, consistent w ith previous cholecystectomy. No ductal dilation. PANCREAS: Unremarkable. No ductal dilation. No mass. SPLEEN: Unremarkable. No splenomegaly. ADRENALS: Unremarkable. No mass. KIDNEYS AND URETERS: A 2.8 cm right renal cyst is present. No follow-up imaging is recommended. The kidneys enhance symmetrically. No obstructing renal or ureteral calculus is seen. No hydronep hrosis. No solid mass. STOMACH AND BOWEL: The stomach is decompressed. The small bowel is relatively normal in caliber. Stool is present throughout colon. There is no mucosal thickening or evidence of bowel obstruction. PELVIS: APPENDIX: The appendix is normal in caliber without surrounding inflammation. BLADDER: The bladder is well distended. REPRODUCTIVE: Unremarkable as visualized. CHEST, ABDOMEN and PELVIS: INTRAPERITONEAL SPACE: Unremarkable. No significant fluid collection. No free air. BONES/JOINTS: Postsurgical change of the lower lumbar spine is present. Extensive multilevel deg enerative changes spine is noted. No acute fracture. No dislocation. SOFT TISSUES: Unremarkable. LYMPH NODES: Unremarkable. No enlarged lymph nodes. IMPRESSION: 1. No evidence of aortic aneurysm or dissection. 2. No evidence of pulmonary embolism. 3. No acute findings. Electronically signed by: Nicolasa Lai MD 08/01/2019 1:08 AM CDT Due to temporary technical issues with the PACS/Fluency reporting system, reports are being signed by the in house radiologist as a courtesy to ensure prompt reporting. The interpreting radiologist is f ully responsible for the content of the report.
[2019-08-01] MEDS ORDERED: ONDANSETRON 4 MG/2 ML VIAL ONE (15:42)
[2019-08-01 19:04] VITALS: BP 192/100; TEMP 98.5; O2SAT 99
--- NOTE | 2019-08-02 06:10 | CON ---
Date of Consultation: 08/01/2019 Reason For Consultation: Chest pain. History Of Present Illness: Mr. Rooney is a 59-year-old male with history of coronary artery dise ase. He also has a history of hypertension, atrial fibrillation, diabetes, dyslipidemia, gastroesoph ageal reflux disease. Patient normally goes to [facility]. He recently had a colonoscopy there. He sees Dr. Martin here for primary care. In April of 2019, I performed a left heart catheterization on ca m and to my surprise I could not find any grafts. His RCA was normal. His distal PDA posterolateral branches showed diffuse disease. The circumflex was normal. He had a stent in the LAD. The NULL i njection showed that the NULL was atretic. I could not find any vein graft on him. He was treated m edically then. He came back with symptoms consistent with angina, but has ruled out for an KS. Past Medical History: As stated above. Allergies: NONE. Review of Systems: Negative. Social History: Negative. Family History: Noncontributory. Medications: At home include lisinopril, Eliquis, Norvasc, aspirin, Plavix, insulin Lipitor, Pepcid, metoprolol, and Protonix. Physical Examination: General: He was pleasant, no chest pain. Vital Signs: Stable, afebrile. HEENT: Negative. Neck: Supple with no bruit. Chest: Clear to auscultation and percussion. Cardiac: Revealed a regular rhythm and rate. No murmurs, gallops, or rubs. Abdomen: Benign. Extremities: Revealed no clubbing, cyanosis, or edema. Diagnostic Data: Troponin was negative. Hemoglobin was 9.9, potassium was 3.2. His BNP was 716. E KG was nonspecific. Chest x-ray was negative. Impression And Plan: Angina secondary to chronic coronary artery disease, mostly distal diffuse dise ase in the PDA and posterolateral. Catheterization showed a patent LAD stent, normal circumflex, no grafts. The case was discussed with Dr. Rios. Of course we do not plan to do another catheterizat ion since we just did 1 less than 3 months ago. 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 Plavix, aspirin, and Eliquis, which a combination that needs to be corrected. He should be on aspirin and Eliquis only. There is really no need for Plavix anymore at this point. His diabetes is fairly well controlled and so is his blood pressure. From my standpoint, Mr. Rooney can go home whenever it is okay with Dr. Rios. We certainly welc ome to follow up in my office in the next 2 to 3 weeks if he wishes or he can go back to [facility]. GEOFF/VAMSHI Voice ID: [id number] Report ID: [id number]
== END 2019-08-01 18:18 | disposition home or self-care (01) ==
LOC: ER 21:40 → ERHOLD 08-01 02:09
PROVIDERS: ADMIT Hospitalist; ATTEND Internal Medicine
DX: I25.119 Atherosclerotic heart disease of native coronary artery with unspecified angina pectoris (principal); E11.43 Type 2 diabetes mellitus with diabetic autonomic (poly)neuropathy; K31.84 Gastroparesis; I44.0 Atrioventricular block, first degree; R94.31 Abnormal electrocardiogram [ECG] [EKG]; I11.9 Hypertensive heart disease without heart failure; E11.40 Type 2 diabetes mellitus with diabetic neuropathy, unspecified; E78.5 Hyperlipidemia, unspecified; I48.91 Unspecified atrial fibrillation; I25.2 Old myocardial infarction; I69.30 Unspecified sequelae of cerebral infarction; K21.9 Gastro-esophageal reflux disease without esophagitis; N40.0 Benign prostatic hyperplasia without lower urinary tract symptoms; M79.7 Fibromyalgia; Z79.82 Long term (current) use of aspirin; Z79.01 Long term (current) use of anticoagulants; Z79.4 Long term (current) use of insulin; Z79.1 Long term (current) use of non-steroidal anti-inflammatories (NSAID); Z79.899 Other long term (current) drug therapy; Z95.5 Presence of coronary angioplasty implant and graft; Z95.1 Presence of aortocoronary bypass graft; Z95.0 Presence of cardiac pacemaker; Z87.891 Personal history of nicotine dependence
CPT/HCPCS: 96361; 93005 ×2; 85025 ×2; 80048 ×2; 36415; 83735; 82550; 85610; 80061; 80076; 84484 ×3; 82553; 83690; 83880; 71275; 74175; 71045; 96375; 96374; 99285; Q9967; J1650; J7040; J7030 ×3; J2405 ×2; G0378 ×2

== ENCOUNTER 2019-09-24 15:42 | Emergency (ER) | payer OTHER ==
[2019-09-24 16:39] LABS: Absolute Lymphocytes (CBC) 2.3 K/uL (0.7-4.9); Basophils % 0.6 % (0-1.3); Hematocrit 36.1 % (39.6-49.0); Lymphocytes % 31.1 % (15.3-44.8); MPV 8.6 fL (7.6-11.3); RBC Red Blood Cell Count 4.12 M/uL (4.33-5.43)
[2019-09-24] MEDS ORDERED: DICYCLOMINE HCL 10 MG CAP ONE (16:43)
[2019-09-24] MEDS ORDERED: METOCLOPRAMIDE 10 MG/2mL INJ ONE (16:43)
[2019-09-24] MEDS ORDERED: DIPHENHYDRAMINE 50 MG/ML VIAL ONE (16:43)
[2019-09-24] MEDS ORDERED: NA CHLORIDE 0.9% 1,000 ML ONE (16:43)
[2019-09-24] MEDS ORDERED: NA CHLORIDE 0.9% 100 ML IV ONE (16:51)
[2019-09-24 16:58] LABS: Albumin 3.4 g/dL (3.4-5.0); Bilirubin Total 0.6 mg/dL (0.2-1.0); Potassium 3.6 mmol/L (3.5-5.1); Protein, Total 7.7 g/dL (6.4-8.2)
--- NOTE | 2019-09-24 17:38 | RAD REPORT ---
EXAM DESCRIPTION: CT - Abdomen Pelvis W Contrast - 09/24/2019 5:19 pm CLINICAL HISTORY: Abdominal pain COMPARISON: July 2019 TECHNIQUE: Computed axial tomography of the abdomen pelvis was obtained. 100 cc Isovue-300 was admin istered intravenously. Oral contrast was not requested which limits evaluation of bowel. All CT scans are performed using dose optimization technique as appropriate and may include automated exposure control or mA/KV adjustment according to patient size. FINDINGS: The liver, spleen, pancreas, adrenal and left kidney appear unremarkable. Right renal cyst unchanged. Cholecystectomy There is no evidence of diverticulitis. Postsurgical changes involve the lumbar spine IMPRESSION: No acute abnormality is displayed.
--- NOTE | 2019-09-24 18:26 | ER ---
Nurse's Notes [facility] Name: Ernie Rooney Age: 59 yrs Sex: Male : 1960 Arrival Date: 09/24/2019 Time: 15:59 Bed 4 Private MD: Diagnosis: Diabetic Gastroparesis Presentation: 09/23 15:40 Chief complaint: EMS states: toned out for abdominal pain x 10 months, pt reports his jl7 defibrillator has fired approximately 10 times since EMS on scene. Coronavirus screen: Proceed with normal triage. Patient denies a cough. Patient denies shortness of breath or difficulty breathing. Patient denies measured and/or subjective temperature greater than 100.4F prior to today's visit. Patient denies travel on a cruise ship or to a country the [facility] currently lists as an affected area. Patient denies contact with known and/or suspected case of COVID-19. Ebola Screen: No symptoms or risks identified at this time. 15:40 Method Of Arrival: EMS: [facility] 15:40 Initial Sepsis Screen: Does the patient meet any 2 criteria? No. Patient's initial jl7 sepsis screen is negative. Does the patient have a suspected source of infection? No. Patient's initial sepsis screen is negative. Risk Assessment: Do you want to hurt yourself or someone else? Patient reports no desire to harm self or others. Onset of symptoms was 2018. Care prior to arrival: None. 15:40 Acuity: TONE 3 jl7 Triage Assessment: 15:40 General: Appears in no apparent distress. uncomfortable, Behavior is cooperative, jl7 anxious. Pain: Complains of pain in right upper quadrant, left upper quadrant, right lower quadrant and left lower quadrant Pain currently is 10 out of 10 on a pain scale. Quality of pain is described as sharp, Pain began x 10 months Is intermittent. Neuro: Level of Consciousness is awake, alert, obeys commands, Oriented to person, place, time, situation. Cardiovascular: Denies chest pain, shortness of breath, Patient's skin is warm and dry. Respiratory: Airway is patent Respiratory effort is even, unlabored, Respiratory pattern is regular, symmetrical, Denies cough, shortness of breath. GI: Abdomen is non-distended, Stools are reported to be normal. Last BM was September 23, 2019. Reports nausea, Patient currently denies diarrhea, vomiting. : No signs and/or symptoms were reported regarding the genitourinary system. Derm: Skin is pink, warm \T\ dry. Historical: - Allergies: 16:21 NKA; jl7 - Home Meds: 16:21 aspirin 81 mg Oral TbEC [Active]; pantoprazole 20 mg oral TbEC 1 tab once daily jl7 [Active]; Eliquis 5 mg oral tab 1 tab 2 times per day [Active]; metoprolol tartrate 25 mg Oral tab 1 tab 2 times per day [Active]; ibuprofen 600 mg Oral tab 1 tab 3 times per day [Active]; lisinopril 2.5 mg Oral tab 1 tab once daily [Active]; tamsulosin 0.4 mg oral cp24 1 cap once daily [Active]; gabapentin 300 mg oral cap 1 cap 3 times per day [Active]; atorvastatin 80 mg oral tab 1 tab once daily [Active]; famotidine 20 mg Oral tab 1 tab 2 times per day [Active]; amlodipine 5 mg tab 1 tab once daily [Active]; - PMHx: 16:21 Arthritis; Back pain; CVA; Depression; Diabetes - NIDDM; Fibromyalgia; GERD; High jl7 Cholesterol; Hyperlipidemia; Hypertension; Hypothyroidism; 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 - Social history:: Smoking status: Patient denies any tobacco usage or history of. Patient/guardian denies using alcohol, street drugs, tobacco products. Screenin:00 Abuse screen: Denies threats or abuse. Denies injuries from another. Nutritional jl7 screening: No deficits noted. Tuberculosis screening: No symptoms or risk factors identified. Fall Risk IV access (20 points). Assessment: 18:50 Reassessment: Patient appears in no apparent distress at this time. Patient and/or ss family updated on plan of care and expected duration. Pain level reassessed. Reassessment: Pt placed in lobby in wheelchair per request while he awaiting for his ride. Neuro: Level of Consciousness is awake, alert. Respiratory: Respiratory effort is even, unlabored, Respiratory pattern is regular, symmetrical. Derm: Skin is pink, warm \T\ dry. normal. Vital Signs: 15:40 BP 119 / 73; Pulse 79; Resp 21 S; Pulse Ox 100% on R/A; Pain 10/10; jl7 16:42 BP 143 / 77; Pulse 76; Resp 18; Pulse Ox 100% on R/A; kj1 ED Course: 15:40 Arm band placed on right wrist. jl7 15:40 Patient has correct armband on for positive identification. Placed in gown. Bed in low jl7 position. Call light in reach. Side rails up X2. bus monitor on. Pulse ox on. NIBP on. 15:59 Patient arrived in ED. jl7 16:08 Sung Niño, SHEBA is Primary Nurse. jl7 16:11 Triage completed. jl7 16:14 Jameson Mejia MD is Attending Physician. ps1 16:20 Initial lab(s) drawn, by ar, sent to lab. Inserted saline lock: 20 gauge in right jl7 forearm, using aseptic technique. Blood collected. 16:20 Hemoglobin A1c Sent, CMP, CBC with Diff Sent. kj1 16:40 EKG done, by ED staff, reviewed by Jameson Mejia MD. kj1 17:20 CT Abd/Pelvis - IV Contrast Only In Process Unspecified. EDMS 18:24 Logan Carmen MD is Referral Physician. ps1 18:52 No provider procedures requiring assistance completed. IV discontinued, intact, ss bleeding controlled, No redness/swelling at site. Pressure dressing applied. Administered Medications: 16:43 Drug: NS 0.9% 1000 ml Route: IV; Rate: 1 bolus; Site: right wrist; jl7 16:45 Drug: Benadryl 25 mg Route: IVP; Site: right forearm; jl7 16:49 Drug: Reglan 20 mg Route: IVP; Site: right forearm; jl7 16:49 Not Given (Other Intervention Used): Bentyl 20 mg IM once jl7 16:50 Drug: Bentyl 20 mg Route: PO; jl7 Outcome: 18:25 Discharge ordered by . ps1 18:52 Discharged to home via wheelchair. ss 18:52 Condition: good 18:52 Discharge instructions given to patient, Instructed on discharge instructions, follow up and referral plans. Demonstrated understanding of instructions, follow-up care, medications. 18:53 Patient left the ED. ss Signatures: Dispatcher [facility] Rach Ramos RN RN ss Sung Niño RN RN jl7 Jameson Mejia MD MD ps1 Jackson, Kandis kj1 Corrections: (The following items were deleted from the chart) 16: 16:40 HEMOGLOBIN A1C+CHEM A1C.LAB.BRZ drawn and sent. 16:41 16:40 COMPREHENSIVE METABOLIC PANEL+C.LAB.BRZ drawn and sent. 16:41 16:40 CBC+H.LAB.BRZ drawn and sent. 18:53 18:52 Discharge instructions given to patient, family, Instructed on discharge ss instructions, follow up and referral plans. Demonstrated understanding of instructions, follow-up care, medications, ss
--- NOTE | 2019-09-24 18:26 | EDPHYS ---
Physician Documentation [facility] Name: Ernie Rooney Age: 59 yrs Sex: Male : 1960 Arrival Date: 09/24/2019 Time: 15:59 Bed 4 Private MD: ED Physician Jameson Mejia HPI: 09/23 18:27 This 59 yrs old Male presents to ER via EMS with complaints of Abdominal Pain. ps1 18:27 Patient is a poorly controlled diabetic. Blood sugars in 3-400 range regularly. ps1 Complaining of recurrent abdominal pain. Has an appointment for colonoscopy on . States that he has epigastric pain. Pain rated as severe. Associated with food. No fever. No diarrhea. . Historical: - Allergies: 16:21 NKA; jl7 - Home Meds: 16:21 aspirin 81 mg Oral TbEC [Active]; pantoprazole 20 mg oral TbEC 1 tab once daily jl7 [Active]; Eliquis 5 mg oral tab 1 tab 2 times per day [Active]; metoprolol tartrate 25 mg Oral tab 1 tab 2 times per day [Active]; ibuprofen 600 mg Oral tab 1 tab 3 times per day [Active]; lisinopril 2.5 mg Oral tab 1 tab once daily [Active]; tamsulosin 0.4 mg oral cp24 1 cap once daily [Active]; gabapentin 300 mg oral cap 1 cap 3 times per day [Active]; atorvastatin 80 mg oral tab 1 tab once daily [Active]; famotidine 20 mg Oral tab 1 tab 2 times per day [Active]; amlodipine 5 mg tab 1 tab once daily [Active]; - PMHx: 16:21 Arthritis; Back pain; CVA; Depression; Diabetes - NIDDM; Fibromyalgia; GERD; High jl7 Cholesterol; Hyperlipidemia; Hypertension; Hypothyroidism; 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 - Social history:: Smoking status: Patient denies any tobacco usage or history of. Patient/guardian denies using alcohol, street drugs, tobacco products. ROS: 18:27 Constitutional: Negative for fever, chills, and weight loss, Eyes: Negative for injury, ps1 pain, redness, and discharge, Cardiovascular: Negative for chest pain, palpitations, and edema, Respiratory: Negative for shortness of breath, cough, wheezing, and pleuritic chest pain, MS/Extremity: Negative for injury and deformity, Skin: Negative for injury, rash, and discoloration, Neuro: Negative for headache, weakness, numbness, tingling, and seizure. 18:27 Abdomen/GI: Positive for abdominal pain, nausea and vomiting. Exam: 18:27 Constitutional: This is a well developed, well nourished patient who is awake, alert, ps1 and in no acute distress. Head/Face: Normocephalic, atraumatic. Eyes: Pupils equal round and reactive to light, extra-ocular motions intact. Lids and lashes normal. Conjunctiva and sclera are non-icteric and not injected. Cardiovascular: Regular rate and rhythm. No gallops, murmurs, or rubs. Normal PMI, no JVD. No pulse deficits. Respiratory: Lungs have equal breath sounds bilaterally, clear to auscultation and percussion. No rales, rhonchi or wheezes noted. No increased work of breathing, no retractions or nasal flaring. Skin: Warm, dry with normal turgor. Normal color with no rashes, no lesions, and no evidence of cellulitis. MS/ Extremity: Pulses equal, no cyanosis. Neurovascular intact. Full, normal range of motion. 18:27 Abdomen/GI: Inspection: abdomen appears normal, Bowel sounds: normal, Palpation: moderate abdominal tenderness, in the epigastric area. Vital Signs: 15:40 BP 119 / 73; Pulse 79; Resp 21 S; Pulse Ox 100% on R/A; Pain 10/10; jl7 16:42 BP 143 / 77; Pulse 76; Resp 18; Pulse Ox 100% on R/A; kj1 MDM: 16:49 Patient medically screened. ps1 18:27 Differential diagnosis: non-specific abd pain, pancreatitis, Peptic Ulcer Disease, ps1 Perf. Duodenal Ulcer, Diabetic gastroparesis. Data reviewed: vital signs, nurses notes, lab test result(s), radiologic studies, and as a result, I will discharge patient. Counseling: I had a detailed discussion with the patient and/or guardian regarding: the historical points, exam findings, and any diagnostic results supporting the discharge/admit diagnosis, lab results, radiology results, the need for outpatient follow up, a material analyst, to return to the emergency department if symptoms worsen or persist or if there are any questions or concerns that arise at home. ED course: Negative workup for acute emergent condition. Likely 2/2 diabetic gastroparesis as his blood sugars are consistently elevated. Follow up with GI. Home with regmonique mariano zofran. . 09/23 16:22 Order name: CBC with Diff; Complete Time: 16:51 ps1 09/23 16:22 Order name: CMP; Complete Time: 17:03 ps1 09/23 16:22 Order name: Hemoglobin A1c ps1 09/23 16:22 Order name: CT Abd/Pelvis - IV Contrast Only; Complete Time: 17:44 ps1 09/23 18:19 Order name: Urine Dipstick--Ancillary (enter results) bd Administered Medications: 16:43 Drug: NS 0.9% 1000 ml Route: IV; Rate: 1 bolus; Site: right wrist; jl7 16:45 Drug: Benadryl 25 mg Route: IVP; Site: right forearm; jl7 16:49 Drug: Reglan 20 mg Route: IVP; Site: right forearm; jl7 16:49 Not Given (Other Intervention Used): Bentyl 20 mg IM once jl7 16:50 Drug: Bentyl 20 mg Route: PO; jl7 Disposition: 09/24/19 18:25 Discharged to Home. Impression: Diabetic Gastroparesis. - Condition is Stable. - Discharge Instructions: Gastroparesis. - Prescriptions for Bentyl 10 mg Oral Capsule - take 1 capsule by ORAL route every 6 hours As needed; 40 capsule. Erythromycin 250 mg Oral Tablet - take 1 tablet by ORAL route every 6 hours for 10 days; 40 tablet. Reglan 10 mg Oral Tablet - take 1 tablet by ORAL route every 6 hours . take 30 minutes before meals and at bedtime; 100 tablet. - Medication Reconciliation Form, Thank You Letter, Antibiotic Education, Prescription Opioid Use form. - Follow up: Logan Carmen MD; When: As needed; Reason: Further diagnostic work-up, Recheck today's complaints, Continuance of care, Re-evaluation by your physician. Follow up: Emergency Department; When: As needed; Reason: Fever > 102 F, Worsening of condition. - Problem is an acute exacerbation. - Symptoms have improved. Signatures: Dispatcher [employer] EDMS Rach Ramos, RN RN ss Sung Niño RN RN jl7 Jameson Mejia MD MD ps1 Corrections: (The following items were deleted from the chart) 18:53 18:25 09/24/2019 18:25 Discharged to Home. Impression: Diabetic Gastroparesis. ss Condition is Stable. Forms are Medication Reconciliation Form, Thank You Letter, Antibiotic Education, Prescription Opioid Use. Follow up: [facility]; When: As needed; Reason: Further diagnostic work-up, Recheck today's complaints, Continuance of care, Re-evaluation by your physician. Follow up: Emergency Department; When: As needed; Reason: Fever > 102 F, Worsening of condition. Problem is an acute exacerbation. Symptoms have improved. ps1
[2019-09-24 21:02] LABS: Urine Blood NEGATIVE (NEG); Urine Glucose TRACE (NEG); Urine Protein NEGATIVE (NEG)
[2019-09-24 22:41] VITALS: BP 143/77; O2SAT 100
--- NOTE | 2019-09-25 16:20 | EKG ---
Test Date: 2019-09-24 Test Time: 15:41:11 [employer]: HB MEASUREMENT RESULTS: Intervals: Rate: 82 WV: 194 QRSD: 156 QT: 470 QTc: 549 [place]: P: 7 WV: 194 QRS: -71 T: 104 INTERPRETIVE STATEMENTS: Electronic ventricular pacemaker Compared to ECG 08/01/2019 08:58:44 Sinus rhythm no longer present First degree AV block no longer present Myocardial infarct finding no longer present ST (T wave) deviation no longer present Possible ischemia no longer present Electronically Signed On 09-25-19 16:18:08 CDT by Luca Royal
== END 2019-09-24 18:53 | disposition home or self-care (01) ==
LOC: ER 15:42
DX: E11.43 Type 2 diabetes mellitus with diabetic autonomic (poly)neuropathy (principal); K31.84 Gastroparesis; I10 Essential (primary) hypertension; E03.9 Hypothyroidism, unspecified; E78.5 Hyperlipidemia, unspecified; F32.9 Major depressive disorder, single episode, unspecified; I25.2 Old myocardial infarction; Z79.01 Long term (current) use of anticoagulants; Z79.82 Long term (current) use of aspirin; Z95.818 Presence of other cardiac implants and grafts
CPT/HCPCS: 93005; 85025; 36415; 81003; 80053; 74177; 96375; 96374; 99285; Q9967; J2765; J1200; J7030

== ENCOUNTER 2020-03-09 16:19 | Emergency (ER) | payer OTHER ==
--- OUTSIDE RECORDS SUMMARY | 2020-03-09 16:22 | XMS REPORT | Continuity of Care Document ---
:1960 Author Organization [facility] t Address [address] [place] [address] Care Team Providers Name Role Phone RAFAEL HALL, MONIKA Primary Care Physician Rico Aleman RN Attending Clinician Unavailable Bay PALOMO F Attending Clinician Benji HALL Attending Clinician Brendan Velazquez MD Attending Clinician Jaimee HALL Attending Clinician Garfield Carrillo MD Attending Clinician Hayder HALL, K.H. Attending Clinician Tryo Martin Attending Clinician Rosa HALL Attending Clinician Luis PALOMO Attending Clinician James Attending Clinician Juan José HALL Attending Clinician Humaira HALL Attending Clinician Doctor Unassigned, Name Attending Clinician Unavailable Manolo SCRUGGS Attending Clinician BROOKE Attending Clinician Unavailable Andrew MONTES DE OCA Attending Clinician Unavailable PHILIP Attending Clinician Unavailable Benji HALL Admitting Clinician Jaimee HALL Admitting Clinician Humaira HALL Admitting Clinician BROOKE Admitting Clinician Unavailable PHILIP Admitting Clinician Unavailable Payers Payer Name Policy Type Policy Number Effective Date Expiration Date [facility] [id number] [facility] Center Problems Condition Condition Condition Status Onset Resolution Last Treating Co mments Source Name Details Category Date Date Treatment Clinician Date Chest pain Chest pain Problem Active [facility] - 00:00: Patient 00 [facility] Coronary CAD Problem Active [facility] artery (coronary [facility] - disease artery Patient disease) [facility] Diabetic DKA Problem Active [facility] ketoacidos (diabetic Esme es - is ketoacidos Patien t es) [facility] Hyperglyce Hyperglyce Problem Active [facility] bambi bambi [facility] - Patient [facility] Hypertensi Hypertensi Problem Active [facility] on [facility] Patient [facility] Pancreatit Pancreatit Problem Active [facility] is is [facility] Patient [facility] Uncontroll Uncontroll Problem Active [facility] ed ed [facility] - diabetes diabetes Patien t mellitus mellitus [facility] Allergies, Adverse Reactions, Alerts Allergy Allergy Status Severity Reaction(s) Onset Inactive Treating Comm ents Source Name Type Date Date Clinician No Known DA Active U 2017-05 [facility] Allergie 2-31 [facility] s 00:00: d 00 [facility] No Known DA Active U [facility] Allergie 3-26 [facility] s 00:00: e 00 [facility] Medications Ordered Filled Start Stop Current Ordering Indication Dosage Frequency Signature Comments Components Source Medication Medication Date Date Medication? Clinician (SIG) Name Name Aspirin 81 Aspirin 81 2018- No Alexis [address] [facility] Mg Tab.chew Mg Tab.chew 10-26 Brooke Frankel - 00:00: 00:00 Patient 00 :00 [facility] Diflunisal Diflunisal 2015- No Todd Wynn [address] [facility] (Dolobid) (Dolobid) 01-17[facility] - 500 Mg 500 Mg 00:00: 00:00 Patient Tablet, 500 Tablet, 500 00 :00 s Mg Oral [facility] Ondansetron Ondansetron 2015- No Todd Wynn [address] [facility] Hcl Hcl 01-17 [place] as [facility] - (Zofran*) 4 (Zofran*) 4 00:00: 00:00 needed for Patient Mg Tablet, Mg Tablet, 00 :00 Nausea s 4 Mg 4 Mg Medical Sublingual Sublingual Agustin ter Clopidogrel Clopidogrel Yes [address] [facility] Bisulfate Bisulfate [facility]ukes - (Plavix) 75 (Plavix) 75 P atient Mg Tablet Mg Tablet s [facility] Cyclobenzap Cyclobenzap Yes [address] rine Hcl rine Hcl Times A Luke s - (Flexeril) (Flexeril) Day as P atient 5 Mg Tablet 5 Mg Tablet needed for s [facility] Doxazosin Doxazosin Yes [address] [facility] Mesylate Mesylate [facility]ukes - (Cardura) 8 (Cardura) 8 P atient Mg Tablet Mg Tablet s Medical [place] Fenofibrate Fenofibrate Yes [address] 200 Mg Cap 200 Mg Cap Esme es - Patient [facility] Gabapentin Gabapentin Yes [address] [facility] 800 Mg 800 Mg Hours [facility] - Tablet Tablet [facility] Glipizide 5 Glipizide 5 Yes [address] [facility] Mg Tablet Mg Tablet Day [facility] - Patient [facility] Center Hydrocodone Hydrocodone Yes [address] [facility] [address] Bit/Acetami Bit/Acetami Hours as [facility] - nophen nophen needed for Patie nt ([place] [facility] [facility] 10-325 10-325 Medical Tablet) 1 Tablet) 1 Cente r Each Tablet Each Tablet Insulin Insulin Yes [address] Regular, Regular, Times [facility]ukes - Human Human Daily With Patient (Humulin R) (Humulin R) Meals s 100 Unit/1 100 Unit/1 Med ical Ml Vial Ml Vial Center Isosorbide Isosorbide Yes [address] Mononitrate Mononitrate L ukes - (Isosorbide (Isosorbide P atient Mononitrate Mononitrate s Er) 30 Mg Er) 30 Mg Medic al Tab.er.24h Tab.er.24h Agustin ter Levothyroxi Levothyroxi Yes [address] ne Sodium ne Sodium Lukes - 50 Mcg 50 Mcg Patient Tablet Tablet [facility] Lisinopril Lisinopril Yes 2.[address] 2.5 Mg 2.5 Mg [facility]ukes - Tablet Tablet Patient [facility] Center Metformin Metformin Yes [address] [facility] Hcl Hcl Day [facility] - (Glucophage (Glucophage P atient ) 1,000 Mg ) 1,000 Mg s Tablet Tablet [facility] Center Methadone Methadone Yes 5 Every [address] Hcl 5 Mg Hcl 5 Mg Hours [facility]ukes - Tablet Tablet Patient [facility] Center Metoprolol Metoprolol Yes [address] Tartrate 25 Tartrate 25 L ukes - Mg Tablet Mg Tablet Patie nt [facility] Nitroglycer Nitroglycer Yes As Needed [facility] in in [facility]ukes - (Nitrostat) (Nitrostat) P atient 0.4 Mg 0.4 Mg s Tab.subl Tab.[facility] Omeprazole Omeprazole Yes [address] 20 Mg 20 Mg [facility] - Capsule.dr Lind.dr [facility] Simvastatin Simvastatin Yes [address] 80 Mg 80 Mg [facility]ukes - Tablet Tablet Patient [facility] Center Tamsulosin Tamsulosin Yes Daily [facility] Hcl 0.4 Mg Hcl 0.4 Mg Esme es - Cap.er.24h Cap.er.24h [facility] Tramadol Tramadol Yes [address] [facility] Hcl Hcl Daily as [facility]ukes - (Ultram) 50 (Ultram) 50 needed for Patient Mg Tablet Mg Tablet Pain [facility] Venlafaxine Venlafaxine Yes [address] Hcl 75 Mg Hcl 75 Mg Lukes - Tab Tab Patient [facility] Albuterol Albuterol 2017- No [address] [facility] Sulfate Sulfate 10-15 Day as [facility]ukes - (Proair Hfa (Proair Hfa 00:00 needed for Patient Inhaler*) Inhaler*) :00 Shortness s 8.5 Gm Inh, 8.5 Gm Inh, Of Breath Medical 1 Inh 1 Inh Center Inhalation Inhalation Dicyclomine Dicyclomine 2017- No [address] Hcl 20 Mg Hcl 20 Mg 10-15 Daily Esme es - Tablet, 20 Tablet, 20 00:00 Pa tient Mg Oral Mg Oral :00 s [facility] Insulin Insulin 2016- No 40 7AM &Hs [facility] Nph Human Nph 10-15 Luke s - (Humulin N) (Humulin N) 00:00 Patient 100 100 :00 s Units/Ml Units/Ml Medical Ml, 40 Ml, 40 Center Sub-Q Sub-Q Naloxone Naloxone 2017- No .4 As Needed [facility] Hcl 0.4 Hcl 0.4 10-15 for Lukes - Mg/1 Ml Mg/1 Ml 00:00 Oversedati Navid blanco Disp.syrin, Disp.syrin, :00 on s 0.4 Mg 0.4 Mg [facility] Intrav IntravFormerly [facility] Venlafaxine Venlafaxine 2016- No 37.[address] Hcl 75 Mg Hcl 75 Mg 10-15 Luke s - Tab, 37.5 Tab, 37.5 00:00 Manjula ent Mg Oral Mg Oral :00 [facility] Clindamycin Clindamycin No [address] Hcl 150 Mg Hcl 150 Mg 08-16 Times A Lukes - Capsule, Capsule, 00:00 Day Patien t 300 Mg Oral 300 Mg Oral :00 [facility] Ibuprofen Ibuprofen 2016- No [address] 600 Mg 600 Mg 08-16 Times A [facility]ukes - Tablet, 800 Tablet, 800 00:00 Day as Patient Mg Oral Mg Oral :00 needed for s Mild Pain [facility] (1-3) [place] Ranolazine Ranolazine No [address] [facility] (Ranexa) (Ranexa) 08-16 Day [facility]ukes - 500 Mg 500 Mg 00:00 Patient Tabsr, 1000 Tabsr, 1000 :00 s Mg Oral Mg Oral [facility] Insulin Insulin 2016- No [address] [facility] Human Nph Human Nph 04-20 Luke s - (Humulin N) (Humulin N) 00:00 Patient 100 100 :00 s Units/Ml Units/Ml Medical Ml, 32 Ml, 32 Center Units Units Subcutaneou Subcutaneou sly sly Insulin Insulin No [address] Regular, Regular, 04-20 Times A Esme es - Human Human 00:00 Day Patient (Humulin R) (Humulin R) :00 s 100 Unit/1 100 Unit/1 Med ical Ml Vial, 45 Ml Vial, 45 C enter Units Units Subcutaneou Subcutaneou sly sly Ranolazine Ranolazine 2016- No [address] [facility] (Ranexa) (Ranexa) 04-20 Day [facility]ukes - 500 Mg 500 Mg 00:00 Patient Tabsr, 1000 Tabsr, 1000 :00 s Mg Oral Mg Oral [facility] Center Insulin Insulin No Before [facility] Regular, Regular, 03-22 Meals [facility]ukes - Human Human 00:00 Patient (Humulin R) (Humulin R) :00 s 100 Unit/1 100 Unit/1 Med ical Ml Vial, 20 Ml Vial, 20 C enter Units Sub-Q Units Sub-Q Omeprazole Omeprazole [facility] 40 Mg 40 Mg 06-17 Lukes - Capsule., Capsule., 00:00 Patient :00 s [facility] Insulin Insulin No 90 Twice A [facility] Glargine Glargine 12- Day [facility]ukes - (Lantus) (Lantus) 00:00 Patien t 100 100 :00 s Units/Ml Units/Ml Medical Ml, 90 Unit Ml, 90 Unit C enter Subcutaneou Subcutaneou sly sly Insulin Insulin No Three [facility] Regular, Regular, 12-11 Times A Esme es - Human Human 00:00 Day Patient (Humulin R) (Humulin R) :00 s 100 Unit/1 100 Unit/1 Med ical Ml Vial, 25 Ml Vial, 25 C enter Unit Unit Subcutaneou Subcutaneou sly sly Isosorbide Isosorbide No [address] Mononitrate Mononitrate 05-01 [facility]ukes - (Isosorbide (Isosorbide 00:00 Patient Mononitrate Mononitrate :00 s Er) 30 Mg Er) 30 Mg Medic al Tab.er.24h, Tab.er.24h, C enter 60 Mg Oral 60 Mg Oral Metoprolol Metoprolol [address] Tartrate 25 Tartrate 25 05-01 [facility] - Mg Tablet, Mg Tablet, 00:00 Pa tient 25 Mg Oral 25 Mg Oral :00 [facility] Albuterol Albuterol No [address] Sulfate Sulfate 07-05 as needed Esme es - (Ventolin (Ventolin 00:00 for Manjula ent Hfa) 18 Gm Hfa) 18 Gm :00 Shortness s Hfa.aer.ad, Hfa.aer.ad, Of Breath Medical 90 Mcg 90 Mcg Center Inhalation Inhalation Dicyclomine Dicyclomine [address] [facility] Hcl 10 Mg Hcl 10 Mg 11-23 Day Luke s - Capsule, 10 Capsule, 10 00:00 Patient Mg Oral Mg Oral :00 s Medical Center Methocarbam Methocarbam No [address] ol ol - Times A Lukes - (Robaxin) (Robaxin) 00:00 Day Manjula ent 500 Mg 500 Mg :00 s Tablet, 500 Tablet, 500 M edical Mg Oral Mg Oral Center Metronidazo Metronidazo [address] le 500 Mg le 500 Mg 11-23 Luke s - Tablet, 500 Tablet, 500 00:00 Patient Mg Oral Mg Oral :00 s Medical [place] Nitroglycer Nitroglycer No .[address] in in 11-23 for Chest [facility]ukes - (Nitrostat) (Nitrostat) 00:00 Pain Patient 0.4 Mg 0.4 Mg :00 s Tab.subl, Tab.subl, Medic al 0.4 Mg 0.4 Mg [place] Sublingual Sublingual Pantoprazol Pantoprazol No [address] e Sodium e Sodium 11-23 [facility]ukes - (Protonix) (Protonix) 00:00 Pa tient 40 Mg 40 Mg :00 s Tablet., Tablet., Med ical 40 Mg Oral [address] Sucralfate Sucralfate No [address] [facility] 1 Gm 1 Gm 11-23 Day [facility]ukes - Tablet, 1 Tablet, 1 00:00 Manjula ent Gm Oral Gm Oral :00 s Medical [place] Temazepam Temazepam [address] (Restoril) (Restoril) 11-23 Theresa kes - 30 Mg 30 Mg 00:00 Patient Capsule, 30 Capsule, 30 :00 s Mg Oral Mg [facility] Tizanidine Tizanidine [address] Hcl 4 Mg Hcl 4 Mg 11-23 [facility]ukes - Capsule, 4 Capsule, 4 00:00 Pa tient Mg Oral Mg Oral :00 s Medical [place] Trazodone Trazodone No [address] Hcl 50 Mg Hcl 50 Mg 11-23 Luke s - Tablet, 50 Tablet, 50 00:00 Pa tient Mg Oral Mg Oral :00 s [facility] Center Venlafaxine Venlafaxine 2015- No 37.[address] [facility] Hcl 37.5 Mg Hcl 37.5 Mg 11-23 Day [facility]ukes - Tablet, Tablet, 00:00 Patient 37.5 Tab 37.5 Tab :00 s Oral [facility] Cyclobenzap Cyclobenzap [address] rine Hcl 10 rine Hcl 10 12-19 Times A [facility]ukes - Mg Tablet, Mg Tablet, 00:00 Day Pa tient 10 Mg Oral 10 Mg Oral :00 s Medical Center Gabapentin Gabapentin No [address] 300 Mg 300 Mg 12-19 Times A [facility]ukes - Capsule, Capsule, 00:00 Day Patien t 600 Mg Oral 600 Mg Oral :00 s [facility] Center Pregabalin Pregabalin [address] [facility] (Lyrica) (Lyrica) 01-02 Day [facility] - 150 Mg 150 Mg 00:00 Patient Capsule, Capsule, :00 s 150 Mg Oral 150 Mg Oral M [facility] Zolpidem Zolpidem [address] [facility] [address] Tartrate Tartrate 01-02 [facility] - (Ambien) 10 (Ambien) 10 00:00 Patient Mg Tablet, Mg Tablet, :00 s 10 Mg Oral 10 Mg Oral Med ical Center Procedures Procedure Date / Time Performed Performing Clinician [facility] e Computed tomography 2017-10-24 00:00:00 ALEXIS [facility] - angiography of brain Patients [facility] CT angiography of chest 2017-10-23 00:00:[address] [facility] - Patients Medical Center Computed tomography of 2017-10-23 00:00:[address] [facility] - brain without Patients Medical radiopaque contrast Center Computed tomography of 2017-04-04 00:00:00 JACQUELYN MONTES DE OCA [facility] without Patients Medical radiopaque contrast Center Computed tomography of 2017-04-04 00:00:00 JACQUELYN MONTES DE OCA [facility] cervical spine without Patients Medical contrast Center US abdomen complete 2017-03-08 00:00:00 SCOTT AMIN [facility] Encounters Start End Encounter Admission Attending Care Care Encounter Source Date/Time Date/Time Type Type Clinicians Facility Department ID 2020-02-06 2020-02-06 Transition Latrice Aleman [id number] 00:00:00 00:00:00 of Care Rico Vazquez [id number] [place] [id number] [id number] 2020-02-03 2020-02-05 [facility] Óscar Hermosillo [facility] 1.2.8 40.114 [id number] 16:55:00 20:40:00 Encounter Coral Leblanc [id number] [place] [id number] [place] [id number] 2019-11-16 2019-11-21 [facility] Lopez Velazquez [facility] 1.2.840 .114 [id number] 16:35:23 14:12:00 Encounter Heather Hermosillo [id number] 0 [place] [id number] [place] [id number] 2019-09-17 2019-09-18 Emergency Yarial, [facility] [id number] 20:30:04 00:41:00 Rosemary Zamora [id number] [place] [id number] [place] [id number] 2019-09-05 2019-09-05 [facility] 1.2.840.114 [id number] 08:17:17 08:47:17 ne Visit Ninfa Zamora [id number] [place] [id number] Professio [id number] nal [address] [place] [address] 2019-09-05 2019-09-05 Telephone Hayder [facility] [id number] 00:00:00 00:00:00 Ninfa Zamora [id number] [place] 4.2.7.2.[address] Professio [id number] 2019-08-20 2019-08-20 Telephone Mario [facility] [id number] 00:00:00 00:00:00 Nika SHAW [id number] [facility] 4.2.7.2.686 [facility] [id number] 2019-08-19 2019-08-19 Refill Nancy Lee 1.2.840.114 [id number] 00:00:00 00:00:00 Lola Figueroa [id number] [facility] 4.2.7.2.686 [id number] 2019-08-16 2019-08-16 Refill Nancy Lee 1.2.840.114 [id number] 00:00:00 00:00:00 Lola Figueroa [id number] [facility] 4.2.7.2.686 [id number] [id number] 2019-08-15 2019-08-15 Emergency [facility] 1.2.840.114 [id number] 11:58:21 15:28:00 Pietro Zamora [id number] [place] 4.2.7.2.686 [place] [id number] 2019-08-15 2019-08-15 Case JOSE Singletary 1.2.840.114 [id number] 00:00:00 00:00:00 Management Ninfa TroyHortensiaRizwanaHortensia CRISTINA [id number] [facility] 4.2.7.2.686 [id number] 2019-08-15 2019-08-15 Telephone Hayder [facility] [id number] 00:00:00 00:00:00 Ninfa TroyHortensiaRizwanaHortensia Meredosia 350.1.13.10 [place] 4.2.7.2.686 Professio [id number] [facility] 059 [facility] 2019-08-12 2019-08-12 Transition Latrice Ramirez 1.2.840.114 [id number] 00:00:00 00:00:00 of Care Joan Vazquez [id number] [place] 4.2.7.2.686 [id number] 2019-08-06 2019-08-09 Emergency Wayne Can [facility] 1.2.840. 114 [id number] 14:06:47 15:19:00 Timur Gerardo 350.1.13.10 [place] 4.2.7.2.686 [place] [id number] 2019-08-06 2019-08-06 Orders Doctor JOSE 1.2.840.114 [id number] 00:00:00 00:00:00 Only Unassigned, CRISTINA 350.1.13.10 Floral [facility] 4.2.7.2.686 [id number] 2019-07-19 2019-07-19 Transition Latrice French 1.2.840.114 [id number] 00:00:00 00:00:00 of Care Glida Vazquez 350.1.13.10 [place] 4.2.7.2.686 [id number] 2017-10-23 2017-10-27 [facility] 1 [id number] 17:29:00 16:54:00 Inpatient ALEXIS 90 [place] - [facility] 2017-04-03 2017-04-04 [id number] 23:17:00 03:53:00 Emergency LAIRD 56 [facility] - Room Patient s [facility] 2017-03-05 2017-03-09 [facility] [id number] 06:54:00 10:58:00 Inpatient NICHELLE 44 [facility] - (obs) Patient s [facility] 2017-01-04 2017-01-05 Discharged [facility] [id number] 10:33:00 18:56:00 Inpatient 61 [facility] - (obs) Patient s [facility] Results Test Description Test Time Test Comments Results Result Comments Source COMPREHENSIVE METABOLIC PANEL 2019-01-03 18:02:00 Test Item Value Reference Range Interpretation Comme nts SODIUM (test code = NA) 138 mmol/L 134-147 N POTASSIUM (test code = K) 4.1 mmol/L 3.4-5.0 N CHLORIDE (test code = CL) 104 mmol/L 100-108 N CARBON DIOXIDE (test code = CO2) 23 mmol/L 21-32 N ANION GAP (test code = GAP) 11.0 GAP calc 4.0-15.0 N GLUCOSE (test code = GLU) 347 MG/DL 70-110 H BLOOD UREA NITROGEN (test code = BUN) 14 MG/DL 7-18 N GLOMERULAR FILTRATION RATE (test code = GFR) >=60 max estimate estG FR >60 CREATININE (test code = CREAT) 1.2 MG/DL 0.8-1.3 N TOTAL PROTEIN (test code = PROT) 7.6 G/DL 6.4-8.2 N ALBUMIN (test code = ALB) 3.8 G/DL 3.4-5.0 N GLOBULIN (test code = GLOB) 3.8 GM/dL ALBUMIN/GLOBULIN RATIO (test code = A/G) 1.0 RATIO 1.2-2.2 L CALCIUM (test code = CA) 9.8 MG/DL 8.5-10.1 N BILIRUBIN TOTAL (test code = BILT) 0.60 MG/DL 0.2-1.2 N SGOT/AST (test code = AST) 26 Unit/L 15-37 N SGPT/ALT (test code = ALT) 53 Unit/L 12-78 N ALKALINE PHOSPHATASE TOTAL (test code = ALKP) 149 Unit/L 50-136 H [id number] 18:02:00 Test Item Value Reference Range Interpretation Comments AMYLASE (test code = SERGIO) 82 Unit/L 25-115 N [id number] 18:02:00 Test Item Value Reference Range Interpretation Comments LIPASE (test code = LIP) 185 Unit/L 114-286 N COMPREHENSIVE METABOLIC [id number] 17:56:00 Test Item Value Reference Range Interpretation Comments SODIUM (test code = NA) 138 mmol/L 134-147 N POTASSIUM (test code = K) 4.1 mmol/L 3.4-5.0 N CHLORIDE (test code = CL) 104 mmol/L 100-108 N CARBON DIOXIDE (test code = 23 mmol/L 21-32 N CO2) ANION GAP (test code = GAP) 11.0 GAP calc 4.0-15.0 N GLUCOSE (test code = GLU) 347 MG/DL 70-110 H BLOOD UREA NITROGEN (test code 14 MG/DL 7-18 N = BUN) GLOMERULAR FILTRATION RATE estGFR >60 (test code = GFR) CREATININE (test code = CREAT) MG/DL 0.8-1.3 TOTAL PROTEIN (test code = G/DL 6.4-8.2 PROT) ALBUMIN (test code = ALB) G/DL 3.4-5.0 GLOBULIN (test code = GLOB) GM/dL ALBUMIN/GLOBULIN RATIO (test RATIO 1.2-2.2 code = A/G) CALCIUM (test code = CA) 9.8 MG/DL 8.5-10.1 N BILIRUBIN TOTAL (test code = MG/DL 0.2-1.2 BILT) SGOT/AST (test code = AST) Unit/L 15-37 SGPT/ALT (test code = ALT) Unit/L 12-78 ALKALINE PHOSPHATASE TOTAL Unit/L 50-136 (test code = ALKP) [id number] 17:56:00 Test Item Value Reference Range Interpretation Comments AMYLASE (test code = SERGIO) Unit/L 25-115 [id number] 17:56:00 Test Item Value Reference Range Interpretation Comments LIPASE (test code = LIP) 185 Unit/L 114-286 N CBC W/AUTO [id number] 17:46:00 Test Item Value Reference Range Interpretation Comments WHITE BLOOD CELL (test code = 7.6 K/mm3 3.5-11.0 N WBC) RED BLOOD CELL (test code = RBC) 4.45 M/mm3 4.70-6.10 L HEMOGLOBIN (test code = HGB) 13.5 G/DL 12.3-15.9 N HEMATOCRIT (test code = HCT) 37.9 % 35.8-46.7 N MEAN CELL VOLUME (test code = 85.2 Fl 86.3-98.9 L MCV) MEAN CELL HGB (test code = MCH) 30.3 pg 28.9-34.4 N MEAN CELL HGB CONCETRATION (test 35.6 G/DL 32.1-34.5 H code = MCHC) RED CELL DISTRIBUTION WIDTH (test 13.1 SD 11.5-14.5 N code = RDW) PLATELET COUNT (test code = PLT) 269.0 K/mm3 150-450 N MEAN PLATELET VOLUME (test code = 9.80 fL 7.0-9.6 H MPV) NEUTROPHIL % (test code = NT%) 64.7 % 40-76 N LYMPHOCYTE % (test code = LY%) 24.0 % 20.5-51.1 N MONOCYTE % (test code = MO%) 7.7 % 1.7-9.3 N EOSINOPHIL % (test code = EO%) 3.3 % 0.0-6.0 N BASOPHIL % (test code = BA%) 0.3 % 0.0-2.0 N NEUTROPHIL # (test code = NT#) 4.93 K/mm3 1.8-7.6 N LYMPHOCYTE # (test code = LY#) 1.8 K/mm3 0.6-3.0 N MONOCYTE # (test code = MO#) 0.6 K/mm3 0.2-1.5 N EOSINOPHIL # (test code = EO#) 0.3 K/mm3 0.0-0.4 N BASOPHIL # (test code = BA#) 0.0 K/mm3 0.0-0.2 N MANUAL DIFF REQUIRED (test code = NO DIFF/SCN CRITERIA MDIFF) - CT ABD PELVIS W/O [id number] 17:46:00 Name: FAITH VANCE [facility] : 1960 Age/S: 58 / M [id number] Unit #: [id number] Loc: [place] [address] Phys: Nila Chester MD Acct: [id number] Dis Date: Status: REG ER PHONE #: [phone] Exam Date: 01/03/2019 1247 FAX #: Reason: llq EXAMS: CPT: [id number] CT ABD PELVIS W/O CONT 56457 Location ofdictation: B2 CT abdomen and pelvis without contrast CLINICAL INDICATION: Left lower quadrant pain x4 months Comments: Volumetric data acquisition through the pelvis without intravenous contrast reconstructed as contiguous axial volume, and multiplanar coronal and sagittal reconstructions per department protocol. 5 mm axial sections. Reconstructions - coronal and sagittal planes Automated exposure reduction (Auto mA/Smart mA) was utilized in compliance with ACR Image [employer]isely with DLP of 448.3 mGy-cm. COMPARISON: 09/14/2017 FINDINGS: Lung bases: Minimal patchyinfiltrate right lung base, stable. Hepatobiliary: Fatty liver without mass. Gallbladder removed. Spleen and pancreas appear normal Adrenals: Normal Kidneys: No renal stones or hydronephrosis. Bladder is intact. Stable simple right renal cyst measuring 2.7 cm. GI: No evidence for bowel obstruction. No inflammatory change, free fluid or free air. Normal appendix seen. No bowel containing hernias. No free fluid or free air. Retroperitoneum and pelvis: No abnormal mass or adenopathy. Bones and soft tissues: Postsurgical changes of the lower lumbar spine with no focal findings or changes. IMPRESSION: 1. Comparison made to 09/14/2017. No acute findings or ch anges in the abdomen or pelvis. 2. Status post cholecystectomy. PAGE 1 Signed Report (CONTINUED) Name: FAITH VANCE [facility] Cristofer : 1960 Age/S: 58 / M [id number] Unit #: [id number] Loc: [place] [address] Phys: Rochelle Chester MD Acct: [id number] Dis Date: Status: REG ER PHONE #: [phone] Exam Date: 01/03/2019 9138 FAX #: Reason: llq EXAMS: CPT: [id number] CT ABD PELVIS W/O CONT [id number] <Continued> at 1746 Reported and signed by: Renuka Willett M.D. CC: Nila Chester MD Technologist:RT Kevin(R)(CT)(MRI) CTDI: DLP: Trnscb Date/Time: 01/03/2019 (1746) t.SDR.PXC Orig Print D/T: S: 01/03/2019 (4772) PAGE 2 Signed ReportBedside [id number] 11:47:00 Test Item Value Reference Range Interpretation Comments Bedside Glucose (test code = 07972-1) 155 70-120 H Meter ID: [id number] University of [facility] M.[facility] Centerodium Level 2017-10-27 08:31:00 Test Item Value Reference Range Interpretation Comments Sodium Level (test code = 2951-2) 139 136-145 [facility] CenterPot[facility] [id number] 08:31:00 Test Item Value Reference Range Interpretation Comments Potassium Level (test code = 2823-3) 4.0 3.5-5.1 [facility] CenterChloride Quzjf4385-16-20 08:31:00 Test Item Value Reference Range Interpretation Comments Chloride Level (test code = 2075-0) 106 98-107 [facility] CenterCarbon Dioxide Yerlg7116-44-21 08:31:00 Test Item Value Reference Range Interpretation Comments Carbon Dioxide Level (test code = -8-9) [facility] CenterAnion Ell7695-48-03 08:31:00 Test Item Value Reference Range Interpretation Comments Anion Gap (test code = 29897-4) 12.0 8-16 [facility] CenterBlood Urea Klmetyle3247-91-74 08:31:00 Test Item Value Reference Range Interpretation Comments Blood Urea Nitrogen (test code = 12-14 3094-0) [facility] CenterCreatinine2018-06-08 08:31:00 Test Item Value Reference Range Interpretation Comments Creatinine (test code = 2160-0) 0.72 0.72-1.25 [facility] CenterBUN/Creatinine Lijfm0846-03-19 08:31:00 Test Item Value Reference Range Interpretation Comments BUN/Creatinine Ratio (test code = 11-13 3097-3) [facility] CenterEstimat Glomerular Filtration Rate 2017-10-27 08:31:00 Test Item Value Reference Range Interpretation Comments Estimat Glomerular Filtration Rate 60- >60 (test code = 77507-4) Ranges were taken from the National Kidney Disease Education Program and the National Kidney Foundation literature.Reference ranges:60 or greater: Hkyhja52- 59 (for 3 consecutive months): Chronic kidneydisease 15 or less: Kidney failure [facility] CenterGlucose Osubg7795-31-56 08:31:00 Test Item Value Reference Range Interpretation Comments Glucose Level (test code = XOJ5442) 195 74-118 H [facility] CenterCalcium Omyzd2656-14-63 08:31:00 Test Item Value Reference Range Interpretation Comments Calcium Level (test code = 86118-6) 9.0 8.4-10.2 [facility] CenterWhite Blood Iedpv8047-38-15 08:12:00 Test Item Value Reference Range Interpretation Comments White Blood Count (test code = 6690-2) 6.06 4.8-10.8 [facility] CenterRed Blood Rwwtu6593-01-60 08:12:00 Test Item Value Reference Range Interpretation Comments Red Blood Count (test code = 789-8) 4.22 4.3-5.7 L [facility] CenterHemoglobin2018-06-08 08:12:00 Test Item Value Reference Range Interpretation Comments Hemoglobin (test code = 06332-8) 12.5 14.0-18.0 L [facility] CenterHematocrit2018-06-08 08:12:00 Test Item Value Reference Range Interpretation Comments Hematocrit (test code = 4544-3) 36.2 38.2-49.6 L [facility] CenterMean Corpuscular Jgaaom2437-05-33 08:12:00 Test Item Value Reference Range Interpretation Comments Mean Corpuscular Volume (test code = 85.8 81-99 787-2) [facility] CenterMean Corpuscular Xuwbsibzbb5841-26-19 08:12:00 Test Item Value Reference Range Interpretation Comments Mean Corpuscular Hemoglobin (test code 29.6 28-32 = 785-6) [facility] Corpuscular Hemoglobin Concent 2017-10-27 08:12:00 Test Item Value Reference Range Interpretation Comments Mean Corpuscular Hemoglobin Concent 34.5 31-35 (test code = 786-4) [facility] CenterRed Cell Distribution Tsudi2074-87-57 08:12:00 Test Item Value Reference Range Interpretation Comments Red Cell Distribution Width (test code 14.2 11.7-14.4 = 14257-3) [facility] CenterPlatelet Ihnts8151-26-77 08:12:00 Test Item Value Reference Range Interpretation Comments Platelet Count (test code = 777-3) 263 140-360 [facility] CenterNeutrophils (%) (Auto)2017-10-27 08:12:00 Test Item Value Reference Range Interpretation Comments Neutrophils (%) (Auto) (test code = 51.2 38.7-80.0 69725-3) [facility] CenterLymphocytes (%) (Auto)2017-10-27 08:12:00 Test Item Value Reference Range Interpretation Comments Lymphocytes (%) (Auto) (test code = 33.7 18.0-39.1 736-9) [facility] CenterMonocytes (%) (Auto)2017-10-27 08:12:00 Test Item Value Reference Range Interpretation Comments Monocytes (%) (Auto) (test code = 9.1 4.4-11.3 5905-5) [facility] CenterEosinophils (%) (Auto)2017-10-27 08:12:00 Test Item Value Reference Range Interpretation Comments Eosinophils (%) (Auto) (test code = 4.8 0.0-6.0 713-8) [facility] CenterBasophils (%) (Auto)2017-10-27 08:12:00 Test Item Value Reference Range Interpretation Comments Basophils (%) (Auto) (test code = 0.7 0.0-1.0 706-2) [facility] CenterIM GRANULOCYTES %2017-10-27 08:12:00 Test Item Value Reference Range Interpretation Comments IM GRANULOCYTES % (test code = IM 0.5 0.0-1.0 GRANULOCYTES %) [facility] CenterNeutrophils # (Auto)2017-10-27 08:12:00 Test Item Value Reference Range Interpretation Comments Neutrophils # (Auto) (test code = 3.1 2.1-6.9 751-8) [facility] CenterLymphocytes # (Auto)2017-10-27 08:12:00 Test Item Value Reference Range Interpretation Comments Lymphocytes # (Auto) (test code = 2.0 1.0-3.2 64613-0) [facility] CenterMonocytes # (Auto)2017-10-27 08:12:00 Test Item Value Reference Range Interpretation Comments Monocytes # (Auto) (test code = 742-7) 0.6 0.2-0.8 [facility] CenterEosinophils # (Auto)2017-10-27 08:12:00 Test Item Value Reference Range Interpretation Comments Eosinophils # (Auto) (test code = 0.3 0.0-0.4 711-2) [facility] CenterBasophils # (Auto)2017-10-27 08:12:00 Test Item Value Reference Range Interpretation Comments Basophils # (Auto) (test code = 704-7) 0.0 0.0-0.1 [facility] CenterAbsolute Immature Granulocyte (auto 2017-10-27 08:12:00 Test Item Value Reference Range Interpretation Comments Absolute Immature Granulocyte (auto 0.03 0-0.1 (test code = Absolute Immature Granulocyte (auto) [facility] CenterCreatine Kinase RG5836-49-53 15:14:00 Test Item Value Reference Range Interpretation Comments Creatine Kinase MB (test code = 3.90 0-5.0 97981-1) [facility] CenterTroponin B5380-22-66 15:14:00 Test Item Value Reference Range Interpretation Comments Troponin I (test code = TKF6591) 0.054 0-0.300 [facility] CenterCreatine Yjhjov9395-65-47 15:07:00 Test Item Value Reference Range Interpretation Comments Creatine Kinase (test code = 2157-6) 297 30-200 H [facility] CenterHemoglobin A1c Jekhdch4393-88-51 08:04:00 Test Item Value Reference Range Interpretation Comments Hemoglobin A1c Percent (test code = 12.6 4.0-7.0 H Hemoglobin A1c Percent) [facility] CenterTriglycerides Bndpt0675-69-87 06:57:00 Test Item Value Reference Range Interpretation Comments Triglycerides Level (test code = 200 0-149 H 2571-8) [facility] CenterCholesterol Gwfac3400-07-15 06:57:00 Test Item Value Reference Range Interpretation Comments Cholesterol Level (test code = 2093-3) 239 0-199 H Less than 200 mg/dL Low Acie418 - 239 mg/dL Borderline Iglv816 mg/dl and greaterHigh RiskMichael [facility]. [facility] Medical CenterLDL Cholesterol 2017-10-24 06:57:00 Test Item Value Reference Range Interpretation Comments LDL Cholesterol (test code = 2089-1) 164 60-130 H [facility] CenterHDL Xjkckidsufx2127-85-12 06:57:00 Test Item Value Reference Range Interpretation Comments HDL Cholesterol (test code = 2085-9) 35 40-60 L [facility] CenterCholesterol/HDL Lggvq3761-81-87 06:57:00 Test Item Value Reference Range Interpretation Comments Cholesterol/HDL Ratio (test code = 6.8 3.9-4.7 H 9830-1) [facility] CenterUrine Opiates Fsbppm9311-58-29 16:18:00 Test Item Value Reference Range Interpretation Comments Urine Opiates Screen (test code = NEGATIVE NEGATIVE 67191-4) [facility] CenterUrine Barbiturates Caqorn5813-75-99 16:18:00 Test Item Value Reference Range Interpretation Comments Urine Barbiturates Screen (test code NEGATIVE NEGATIVE = 446429258) [facility] CenterUrine Phencyclidine Iaxvxg2078-67-42 16:18:00 Test Item Value Reference Range Interpretation Comments Urine Phencyclidine Screen (test NEGATIVE NEGATIVE code = 71408-9) [facility] CenterUrine Amphetamines Phoqfq2130-31-10 16:18:00 Test Item Value Reference Range Interpretation Comments Urine Amphetamines Screen (test code NEGATIVE NEGATIVE = 23197-3) [facility] CenterUrine Methamphetamines Esszwa1732-70-97 16:18:00 Test Item Value Reference Range Interpretation Comments Urine Methamphetamines Screen (test NEGATIVE NEGATIVE code = Urine Methamphetamines Screen) [facility] CenterUrine Benzodiazepines Gkdjqi5240-43-48 16:18:00 Test Item Value Reference Range Interpretation Comments Urine Benzodiazepines Screen (test NEGATIVE NEGATIVE code = 39990-9) [facility] CenterUrine Cocaine Lmlqtj0339-12-84 16:18:00 Test Item Value Reference Range Interpretation Comments Urine Cocaine Screen (test code = NEGATIVE NEGATIVE 3398-5) [facility] CenterUrine Cannabinoids Hxyrnk9208-06-77 16:18:00 Test Item Value Reference Range Interpretation Comments Urine Cannabinoids Screen (test code NEGATIVE NEGATIVE = 49589-0) THESE RESULTS ARE FOR MEDICAL TREATMENT ONLYTHIS REPORT CONTAINS UNCONFIRMED SCREENING RESULTS*POSITIVE RESULTS WILL BE CONFIRMED BY REFERENCE LAB UPON REQUEST CUT-OFFDRUG CLASS CONCENTRATION ng/mLAmphetamines 1000Met hamphetamines 1000Cocaine 300Opiate 300Phencyclidine 25Cannabinoid 50Barbiturates 300Benzodiazepine 300Methadone 300[facility] CenterUrine Methadone Vepiai8201-19-61 16:18:00 Test Item Value Reference Range Interpretation Comments Urine Methadone Screen (test code = NEGATIVE NEGATIVE 14720-2) THESE RESULTS ARE FOR MEDICAL TREATMENT ONLYTHIS REPORT CONTAINS UNCONFIRMED SCREENING RESULTS*POSITIVE RESULTS WILL BE CONFIRMED BY REFERENCE LAB UPON REQUEST CUT-OFFDRUG CLASS CONCENTRATION ng/mLAmphetamines 1000Met hamphetamines 1000Cocaine Metabolite 300Opiate 300Phencyclidine 25Cannabinoid 50Barbiturates 300Benzodiazepine 300Methadone 300[facility] CenterProthrombin Gvtw0624-31-84 14:13:00 Test Item Value Reference Range Interpretation Comments Prothrombin Time (test code = 5902-2) 13.6 11.9-14.5 [facility] CenterProthromb Time International Ratio 2017-10-23 14:13:00 Test Item Value Reference Range Interpretation Comments Prothromb Time International Ratio 1.13 (test code = 6301-6) Oral Anticoagulant Therapy INR Values:1. Low Intensity Therapy 1.5 - 2.02. Moderate IntensityTherapy 2.0 - 3.03. High Intensity Therapy(1) 2.5 - 3.54. High Intensity Therapy(2) 3.0 - 4.05. Panic Value INR > 5.0[facility] CenterActivated Partial Thromboplast Time 2017-10-23 14:13:00 Test Item Value Reference Range Interpretation Comments Activated Partial Thromboplast Time 27.6 23.8-35.5 (test code = 39773-1) [facility] CenterTotal Yldwftxjm9483-23-98 14:10:00 Test Item Value Reference Range Interpretation Comments Total Bilirubin (test code = 1975-2) 0.6 0.2-1.2 [facility] CenterAspartate Amino Transf (AST/SGOT) 2017-10-23 14:10:00 Test Item Value Reference Range Interpretation Comments Aspartate Amino Transf (AST/SGOT) (test 36 5-34 H code = Aspartate Amino Transf (AST/SGOT)) [facility] CenterAlanine Aminotransferase (ALT/SGPT) 2017-10-23 14:10:00 Test Item Value Reference Range Interpretation Comments Alanine Aminotransferase (ALT/SGPT) 34 0-55 (test code = 1742-6) [facility] CenterTotal Sengamy7760-67-24 14:10:00 Test Item Value Reference Range Interpretation Comments Total Protein (test code = 2885-2) 7.3 6.5-8.1 [facility] CenterAlbumin2018-06-04 14:10:00 Test Item Value Reference Range Interpretation Comments Albumin (test code = 1751-7) 4.0 3.5-5.0 [facility] CenterGlobulin2018-06-04 14:10:00 Test Item Value Reference Range Interpretation Comments Globulin (test code = 27122-4) 3.3 2.3-3.5 [facility] CenterAlbumin/Globulin Hvckt2997-61-46 14:10:00 Test Item Value Reference Range Interpretation Comments Albumin/Globulin Ratio (test code = 1.2 0.8-2.0 1759-0) [facility] CenterAlkaline Fvuehbyjuxm2982-57-72 14:10:00 Test Item Value Reference Range Interpretation Comments Alkaline Phosphatase (test code = 109 40-150 6768-6) [facility] CenterB-Type Natriuretic Vtekwsd5430-52-24 14:10:00 Test Item Value Reference Range Interpretation Comments B-Type Natriuretic Peptide (test code = 92.8 0-100 06549-9) [facility] CenterAmylase Vomng3127-80-88 14:10:00 Test Item Value Reference Range Interpretation Comments Amylase Level (test code = 1798-8) 126 25-125 H [facility] CenterLipase2018-06-04 14:10:00 Test Item Value Reference Range Interpretation Comments Lipase (test code = 3040-3) 98 8-78 H [facility] CenterD-Dimer Quantitative (PE/DVT)2017-10-23 14:02:00 Test Item Value Reference Range Interpretation Comments D-Dimer Quantitative (PE/DVT) (test 0.49 0.00-0.45 H code = 49310-4) [facility] CenterDirect Szcjgpldg7362-39-16 13:47:00 Test Item Value Reference Range Interpretation Comments Direct Bilirubin (test code = 48030-7) 0.2 0.0-5.0 [facility] CenterMagnesium Kzkrf8336-03-54 06:52:00 Test Item Value Reference Range Interpretation Comments Magnesium Level (test code = 61589-9) 1.5 1.3-2.1 [facility] CenterUrine OCS7983-28-01 05:09:00 Test Item Value Reference Range Interpretation Comments Urine WBC (test code = 5821-4) NONE 0-5 [facility] CenterUrine ROY0314-93-46 05:09:00 Test Item Value Reference Range Interpretation Comments Urine RBC (test code = 20429-8) NONE 0-5 [facility] CenterUrine Gccwbmur5469-92-45 05:09:00 Test Item Value Reference Range Interpretation Comments Urine Bacteria (test code = 17253-8) NONE NONE [facility] CenterUrine Epithelial Kahuy6859-88-92 05:09:00 Test Item Value Reference Range Interpretation Comments Urine Epithelial Cells (test code = NONE NONE 68229-0) [facility] CenterUrine Zaivk6317-06-40 04:46:00 Test Item Value Reference Range Interpretation Comments Urine Color (test code = 5778-6) YELLOW YELLOW [facility] CenterUrine Kficlnh7096-51-86 04:46:00 Test Item Value Reference Range Interpretation Comments Urine Clarity (test code = 36637-8) CLEAR CLEAR [facility] CenterUrine Specific Kuirerk8083-06-58 04:46:00 Test Item Value Reference Range Interpretation Comments Urine Specific [place] (test code = 1.010 1.010-1.025 5811-5) [facility] CenterUrine bH3162-65-77 04:46:00 Test Item Value Reference Range Interpretation Comments Urine pH (test code = 77714-2) 8 5-7 H [facility] CenterUrine Leukocyte Wszdschk2908-66-38 04:46:00 Test Item Value Reference Range Interpretation Comments Urine Leukocyte Esterase (test code NEGATIVE NEGATIVE = 5799-2) [facility] CenterUrine Uwthkyl6073-03-17 04:46:00 Test Item Value Reference Range Interpretation Comments Urine Nitrite (test code = 52645-5) NEGATIVE NEGATIVE [facility] CenterUrine Uqtdkxg8874-10-19 04:46:00 Test Item Value Reference Range Interpretation Comments Urine Protein (test code = 5804-0) NEGATIVE NEGATIVE [facility] CenterUrine Glucose (UA)2017-03-05 04:46:00 Test Item Value Reference Range Interpretation Comments Urine Glucose (UA) (test code = NEGATIVE NEGATIVE 2349-9) [facility] CenterUrine Ewnompm5985-31-42 04:46:00 Test Item Value Reference Range Interpretation Comments Urine Ketones (test code = 59004-3) NEGATIVE NEGATIVE [facility] CenterUrine Lfnpfljzvinu7791-99-76 04:46:00 Test Item Value Reference Range Interpretation Comments Urine Urobilinogen (test code = 0.2 0.2-1 84366-8) [facility] CenterUrine Huaorptcf5030-03-04 04:46:00 Test Item Value Reference Range Interpretation Comments Urine Bilirubin (test code = 1978-6) NEGATIVE NEGATIVE [facility] CenterUrine Rjavw2922-97-39 04:46:00 Test Item Value Reference Range Interpretation Comments Urine Blood (test code = 59565-8) 2+ NEGATIVE H [facility] CenterCTA BRAIN [facility] [address] [address] Patient Name: FAITH VANCE MR #: [id number] : 1960 Age/Sex: 57/M Req #: [id number] Adm Physician: ALEXIS COX MD Ordered by: ALEXIS COX MD Report #: [id number] Location: [facility] Room/Bed: [place] [address] Procedure: [id number] CT/CTA BRAIN Exam Date: 10/24/17 Exam Time: 1541 REPORT STATUS: Signed Intracranial CTA History: Weakness, left-sided numbness, possible CVA, Comparison studies:Head CT of 10/23/2017. T echnique: Axial images were obtained from the skull [...] Patent, no abnormalities. Anatomical variants: Anterior communicating artery:Patent. Posterior communicating arteries: Hypoplastic bilaterally. Vertebral arteries: [...] PM Dictated By: ANA MARIA ARTEAGA MD 5308 Transcribed By: ANDREE on 10/24/17 1639 COPY TO: ALEXIS COX MDCT BRAIN [place] [address] [place] [address] Patient Name: FAITH VANCE MR #: [id number] : 1960 Age/Sex: 57/M Req #: [id number] Adm Physician: Ordered by: ARLETH WAHL MD Report #: [id number] Location: Room/Bed: Procedure: [id number] CT/CT BRAIN WO Exam Date: 10/23/17 Exam [...] Normal in size and configuration. No hydrocephalus. Extra- axial spaces: No masses, no fluid collection. Parenchyma: [...] PM Dictated By: ANA MARIA ARTEAGA MD 3395 Transcribed By: ANDREE on 10/23/171642 COPY TO: ARLETH WAHL MD CTA CHEST [facility] [address] [address] Patient Name: FAITH VANCE MR #: [id number] : 1960 Age/Sex: 57/M Req #: [id number] Adm Physician: Ordered by: ARLETH WAHL MD Report #: [id number] Location: ER Room/Bed: Procedure: [id number] CT/CTA CHEST Exam Date: 10/23/17 Exam Time: [...] reviewed and is below limits set by [facility]). FINDINGS: Lines and Tubes: [...] 10/23/17 1621 COPY TO: ARLETH WAHL V [facility] SINGLE (PORTABLE) [place] [address] Patient Name: FAITH VACNE MR #: [id number] : 1960 Age/Sex: 57/M Req #: [id number] Adm Physician: Ordered by: ARLETH WAHL MD Report #: [id number] Location: ER Room/Bed: Procedure: [id number] DX/CHEST SINGLE (PORTABLE) Exam Date: 10/23/17 Exam Time: 1420 REPORT STATUS: Signed PROCEDURE: A single AP viewof the chest. COMPARISON: Chest x- ray 04/04/2017. INDICATIONS: LEFT SIDED NUMBNESS, WEAKNESS. HEADACHE [...] TO: ARLETH WAHL V MDCT BRAIN [place] [address] Patient Name: FAITH VANCE MR #: [id number] : 1960 Age/Sex: 56/M Req #: [id number] Adm Physician: Ordered by: JACQUELYN MONTES DE OCA MD Report #: [id number] Location: ER Room/Bed: Procedure: [id number] CT/CT BRAIN WO Exam Date:Exam Time: REPORT [...] territorial infarct. Arteries: No density suggestive of thrombosi s. Dural sinuses: No abnormal density suggestive of thrombosis. Ventricles: No hydrocephalus or displacement. Extra-axial spaces: No abnormal density. Brain volume: Normalfor age. Craniocervical junction: No mass, Chiari malformation, or basilar invagination. Sella: No mass. Paranasal/mastoid sinuses: Mild mucosal thickening in right maxillary sinus. IMPRESSION: No intracranial abnormality. Signed by: Dr. Brett Jean M.D. on 04/04/2017 2:02 AM Dictated By: BRETT JEAN MD 1 Transcribed By: ANDREE on 04/04/17201 COPY TO: JACQUELYN MONTES DE OCA MD CT CERVICAL SPINE [place] [address] Patient Name: FAITH VANCE MR #: [id number] : 1960 Age/Sex: 56/M Req #: [id number] Adm Physician: Ordered by: JACQUELYN MONTES DE OCA MD Report #: [id number] Location: ER Room/Bed: Procedure: [id number] CT/CT CERVICAL SPINE WO Exam Date: Exam [...] neoplasm. Degenerative changes: C3-C4: Posterior discussed effect compl ex without canal stenosis. C4-C5: Posterior disc osteophyte [...] spondylosis as detailed above. Signed by: Dr. Brett Jean M.D. on 04/04/2017 2:07 AM Dictated By: BRETT JEAN MD 6 Transcribed By: ANDREE on 04/04/17206 COPY TO: JACQUELYN MONTES DE OCA [facility] [place] [address] Patient Name: FAITH VANCE MR #: [id number] : 1960 Age/Sex: 56/M Req #: [id number] Adm Physician: Ordered by: JACQUELYN MONTES DE OCA MD Report #: [id number] Location: ER Room/Bed: Procedure: [id number] DX/CHEST SINGLE (PORTABLE) Exam Date: 04/04/17 Exam [...] OCA MDHIP RIGHT 2-3 VW (+/- PELVIS) [facility] [address] [address] Patient Name: FAITH VANCE MR #: [id number] : 1960 Age/Sex: 56/M Req #: [id number] Adm Physician: Ordered by: JACQUELYN MONTES DE OCA MD Report #: [id number] Location: ER Room/Bed: Procedure: [id number] DX/HIP RIGHT 2-3 VW (+/- PELVIS) Exam [...] By: ANDREE on 04/04/17213 COPY TO: JACQUELYN AMAYA MDSP LUMBAR, COMPLETE MIN 4VW [facility] [address] [address] Patient Name: FAITH VANCE MR #: [id number] : 1960 Age/Sex: 56/M Req #: [id number] Adm Physician: Ordered by: JACQUELYN MONTES DE OCA MD Report #: [id number] Location: ER Room/Bed: Procedure: [id number] DX/SP LUMBAR, COMPLETE MIN 4VW Exam Date: [...] 04/04/17227 COPY TO: JACQUELYN MONTES DE OCA [address] [address] Patient Name: FAITH VANCE MR #: [id number] : 1960 Age/Sex: 56/M Req #: [id number] Adm Physician: NICHELLE PALACIOS MD Ordered by: SCOTT AMIN MD Report #: [id number] Location: [facility] Room/Bed: [facility] 186-1 Procedure: [id number] US/US ABDOMEN COMPLETE Exam Date: 03/08/17 Exam [...] ANIBAL on 03/08/17 1040 [facility]: [facility] [place] [address] Patient Name: FAITH VANCE MR #: [id number] : 1960 Age/Sex: 56/M Req #: [id number] Adm Physician: Ordered by: JACQUELYN MONTES DE OCA MD Report #: [id number] Location: Room/Bed: Procedure: [id number] DX/CHEST SINGLE (PORTABLE) Exam Date: 03/05/17 Exam [...]
--- OUTSIDE RECORDS SUMMARY | 2020-03-09 16:23 | XMS REPORT | Summary of Care ---
:1960 Author Organization [facility] Address [address] [place] [id number] Care Team Providers Name Role Phone Mario Nika Simmons Primary Care Provider [facility] Insurance Hmo Reason for Visit Reason Comments Transition Of Care Encounter Details Date Type Department Care Team Description 02/06/2020 Transition of Care [facility] [address] [id number] Allergies No Known Allergiesdocumented as of this encounter (statuses as of 02/06/2020) Medications Medication Sig Dispensed Refills Start Date End Date Status apixaban 5 mg Take 1 tablet by 60 tablet 2 02/05/2020 Active tabletIndications: mouth 2 (two) times atrial fibrillation daily. Indications: atrial fibrillation clopidogreL 75 mg Take 1 tablet by 30 tablet 2 02/05/2020 Active tabletIndications: mouth daily. NSTEMI (non-ST elevated myocardial infarction) nitroglycerin 0.[address] 1 tablet 1 Bottle 2 02/05/2020 Active sublingual under the tongue tabletIndications: every 5 (five) Chest pain, minutes as needed unspecified type for Chest pain. pantoprazole 20 mg Take 1 tablet by 30 tablet 1 02/05/2020 Active EC mouth daily. tabletIndications: Unstable angina pectoris lisinopriL 2.5 mg Take 1 tablet by 30 tablet 0 02/05/2020 Active tabletIndications: mouth daily. Coronary artery disease involving [place] coronary artery of [place] heart with angina pectoris levothyroxine 50 mcg Take 1 tablet by 30 tablet 0 02/05/2020 Active tabletIndications: mouth every Coronary artery morning. disease involving [place] coronary artery of [place] heart with angina pectoris tamsulosin 0.4 mg 24 Take 1 capsule by 30 capsule 0 02/05/2020 Active hr mouth daily. capsuleIndications: Coronary artery disease involving [place] coronary artery of [place] heart with angina pectoris venlafaxine 75 mg Take 1 tablet by 30 tablet 0 02/05/2020 Active tabletIndications: mouth 2 (two) times Coronary artery daily. disease involving [place] coronary artery of [place] heart with angina pectoris glipiZIDE 5 mg Take 1 tablet by 60 tablet 0 02/05/2020 Active tabletIndications: mouth 2 (two) times Coronary artery daily before disease involving breakfast and [place] coronary dinner. artery of [place] heart with angina pectoris metoprolol succinate Take 1 tablet by 60 tablet 1 02/05/2020 Active XL 25 mg 24 hr mouth 2 (two) times tabletIndications: daily. Coronary artery disease involving [place] coronary artery of [place] heart with angina pectoris furosemide 40 mg Take 1 tablet by 60 tablet 0 02/05/2020 Active tabletIndications: mouth every morning Coronary artery and evening. disease involving [place] coronary artery of [place] heart with angina pectoris KCL 20 mEq Take 1 tablet by 30 tablet 1 02/06/2020 A ctive tabletIndications: mouth daily. Coronary artery disease involving [place] coronary artery of [place] heart with angina pectoris atorvastatin 40 mg Take 1 tablet by 30 tablet 0 02/05/2020 Active tabletIndications: mouth at bedtime. 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 Type 2 diabetes mellitus without complication, without long-term current 01/17/2019 use of insulin Essential hypertension 01/17/2019 Other hyperlipidemia 01/17/2019 Stroke 09/30/2018 Left-sided weakness 09/29/2018 Left sided numbness 09/29/2018 S/P admn tPA in diff fac w/n last 24 hr bef adm to crn t fac 08/30/2018 Unstable angina 08/29/2018 Atypical chest pain 07/13/2018 documented as of this encounter (statuses as of 02/06/2020) Immunizations Name Administration Dates Next Due Influenza Virus Vaccine 02/18/2018, 03/19/2008 Pneumococcal Polysaccharide, PPSV23 (PNEUMOVAX) 02/18/2018 Td 03/29/2019 Zoster Vaccine Recombinant 07/17/2019 documented as of this encounter Social History Tobacco Use Types Packs/Day Years Used Date Former Smoker Cigarettes Quit: 2015 Smokeless Tobacco: Never Used Comments: quit 4 years ago Alcohol Use Drinks/Week oz/Week Comments No 12 Cans of beer 12.0 quit drinking 20 14 but drank heavily before this Sex Assigned at Date Recorded Not on file COVID-19 Exposure Response Date Recorded In the last month, have you been in contact with No / Unsure 02/03/2020 4:38 PM CDT someone who was confirmed or suspected to have Coronavirus / COVID-19? documented as of this encounter Last Filed Vital Signs Not on filedocumented in this encounter Miscellaneous Notes Telephone Encounter - Rico Aleman RN - 02/06/2020 11:48 AM CDT TRANSITIONAL CARE MANAGEMENT ASSESSMENT 02/06/2020 Ernie Rooney [id number] Ernie Rooney is a 59 year old /White male was admitted on 02/03/20 to [facility], ADC MED SURG. He was discharged on 02/05/20 with discharge disposition of HR- Routine Discharge. Admitting Physician: Coral Leblanc Discharge Diagnosis: Acute on chronic abdominal pain Linked Episodes Type: Episode: Status: Noted: Resolved: Last update: Updated by: TRANSITION OF CARE TCM Active 02/05/2020 02/06/2020 11:48 AM Rico Aleman RN Comments: TCM [id number] outreach documentation: Discharge Assessment Chart Assessed: 02/06/20 Chart Reviewed - Post Discharge Call Deferred due to Change in Discharge Status.: Discharged to SNF([facility]) TCM Outreach Completed: 02/06/20 Future Appointments: Pending. documented in this encounter Plan of Treatment Health Maintenance Due Date Last Done Comments EYE EXAM 1968 URINE MICROALBUMIN 1968 DTaP,Tdap,and Td Vaccines (1 - 1977 03/29/2019 Tdap) COLON CANCER SCREENING ANNUAL 2008 FIT/FOBT COLON CANCER SCREENING FIT DNA 2008 EVERY 3 YEARS COLON CANCER SCREENING 2008 SIGMOIDOSCOPY EVERY 5 YEARS COLONOSCOPY 2008 Colorectal Cancer Screening 2008 LUNG CANCER SCREEN: Recommended 2013 for age 55-80 with 30 + pack year history FOOT EXAM 08/29/2019 08/28/2018, 08/28/2018 Zoster Recombinant Vaccine 09/11/2019 07/17/2019 (SHINGRIX) (2 of 2) INFLUENZA VACCINE (#1) 2020 02/18/2018, 03/19/2008 Depression Screening 02/19/2020 02/18/2019 HgA1C 05/17/2020 11/16/2019, 08/06/2019, 06/24/2019, Additional history exists LDL-C 02/03/2021 02/04/2020, 08/06/2019, 07/18/2019, Additional history exists CREATININE (SERUM) 02/04/2021 02/05/2020, 02/04/2020, 02/03/2020, Additional history exists PNEUMOCOCCAL 0-64 YEARS COMBINED Completed 02/18/2018 SERIES HEPATITIS C (HCV) SCREEN Completed 08/29/2018 documented as of this encounter Implants Implanted Type Area Livestock Showman Device 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
--- OUTSIDE RECORDS SUMMARY | 2020-03-09 16:23 | XMS REPORT | Summary of Care ---
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 Timur Gerardo Prasad, Sendil DISEASE / Procedures Discharge Follow-Up: Specialty Service IM-CARDIOVASCULAR DISEASE; 2 Weeks MD Young, Cardiology [address] [place] [address] [place], [place] JUST[address] [address] [place], [place] Phone: [phone] Phone: (Routine) Status Reason Specialty Diagnoses / Referred By Referred To Procedures Contact Contact New Request Internal Medicine Diagnoses 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 [place] heart with angina pectoris Timur Gerardo Patel, Jayendra Procedures Discharge Follow-up: PCP FRANSISCO MARTIN; 2 Weeks MD Simmons [address] [place] [address] [address] [place], [place] Jeff BALL [phone] Phone: (Routine) Status Reason Specialty Diagnoses / Referred By Referred To Procedures Contact Contact New Request Echocardiograph Diagnoses Chest pain in adult Terri Castillo Adc Echo Cardio Procedures ECHO ROUTINE W/DOPPLER COLOR MD Hannah Lab-Pt [address] [facility]PT[facility] D R [address] [phone] Phone: Fax: (Routine) Status Reason Specialty Diagnoses / Referred By Contact Refe rred To Procedures Contact Closed Echocardiograph Diagnoses Acute systolic congestive heart failure Coral Leblanc MD Procedures ECHO ROUTINE W/DOPPLER COLOR [address] [place] [address]. RT [address] [place] [phone] Phone: Radiology Services (Routine) Status Reason Specialty Diagnoses / Referred By Referred To Procedures Contact Contact New Request Diagnostic Diagnoses Acute systolic congestive heart failure Coral Leblanc, Radiology Procedures XR CHEST [address] [place] [address]. [address] [place] [phone] Radiology Services (STAT) Status Reason Specialty Diagnoses / Referred By Referred To Procedures Contact Contact New Request Diagnostic Diagnoses Cellulitis of left foot Coral Leblanc, Radiology Procedures XR FOOT 3+ VW LEFT [address] [place] [address]. [address] [place] [phone] MRI/CAT Scan (STAT) Status Reason Specialty Diagnoses / Referred By Referred To Procedures Contact Contact New Request Diagnostic Diagnoses Abdominal pain in male Ibikunle, Radiology Procedures CT ANGIOGRAM ABDOMEN/PELVIS Folusho F, SHEET PILE HAMMER OPERATOR [address] [place] [phone] MRI/CAT Scan (STAT) Status Reason Specialty Diagnoses / Referred By Referred To Procedures Contact Contact New Request Diagnostic Diagnoses Abdominal pain in male Ibikunle, Radiology Procedures CT ANGIOGRAM CHEST Folusho F, SHEET PILE HAMMER OPERATOR [address] [place] [phone] Reason for Visit Reason Comments Abdominal Pain Shortness of Breath Headache Auth/Cert Status Reason Specialty Diagnoses / Referred By Referred To Procedures Contact Contact Emergency Medicine Adc Em ergency Dept [address] [place] [address] Fax: Encounter Details Date Type Department Care Team Description 02/03/2020 - Hospital Encounter ADC Medicine Tereso Harris, SHEET PILE HAMMER OPERATOR [address] [facility] [address] [place] [address] Abdominal pain 02/05/2020 Surgery Unit Coral Leblanc MD 301 [facility]. [address] [place] [address] [place], [place] [address], [place] [id number] Allergies No Known Allergiesdocumented as of this encounter (statuses as of 02/05/2020) Medications Medication Sig Dispensed Refills Start End Date Status Date apixaban 5 mg Take 1 tablet by 60 tablet 2 Active tabletIndications: mouth 2 (two) 0 atrial times daily. fibrillation Indications: atrial fibrillation clopidogreL 75 mg Take 1 tablet by 30 tablet 2 Active tabletIndications: mouth daily. 0 NSTEMI (non-ST elevated myocardial infarction) nitroglycerin 0.4 Place 1 tablet 1 Bottle 2 Active mg sublingual under the tongue 0 tabletIndications: every 5 (five) Chest pain, minutes as unspecified type needed for Chest pain. pantoprazole 20 mg Take 1 tablet by 30 tablet 1 Active EC mouth daily. 0 tabletIndications: Unstable angina pectoris lisinopriL 2.5 mg Take 1 tablet by 30 tablet 0 Active tabletIndications: mouth daily. 0 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 [place] heart with angina pectoris levothyroxine 50 Take 1 tablet by 30 tablet 0 Active mcg mouth every 0 tabletIndications: morning. 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 [place] heart with angina pectoris tamsulosin 0.4 mg Take 1 capsule 30 capsule 0 Active 24 hr by mouth daily. 0 capsuleIndications : 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 [place] heart with angina pectoris venlafaxine 75 mg Take 1 tablet by 30 tablet 0 Active tabletIndications: mouth 2 (two) 0 Coronary artery times daily. disease involving twin hills coronary artery of [place] heart with angina pectoris glipiZIDE 5 mg Take 1 tablet by 60 tablet 0 Active tabletIndications: mouth 2 (two) 0 Coronary artery times daily disease involving before breakfast twin hills coronary and dinner. artery of [place] heart with angina pectoris metoprolol Take 1 tablet by 60 tablet 1 Ac tive succinate XL 25 mg mouth 2 (two) 0 24 hr times daily. tabletIndications: 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 [place] heart with angina pectoris furosemide 40 mg Take 1 tablet by 60 tablet 0 Active tabletIndications: mouth every 0 Coronary artery morning and disease involving evening. twin hills coronary artery of twin [place] heart with angina pectoris KCL 20 mEq Take 1 tablet by 30 tablet 1 Ac tive tabletIndications: mouth daily. 0 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 [place] heart with angina pectoris atorvastatin 40 mg Take 1 tablet by 30 tablet 0 Active tabletIndications: mouth at 0 Unstable angina bedtime. pectoris venlafaxine 75 mg Take 75 mg by 0 02/05/20 Discontinued tablet mouth 2 (two) 20 (Reord er) times daily. levothyroxine 50 Take 50 mcg by 0 02/05/20 Discontinued mcg tablet mouth every 20 (Reorde r) morning. nitroglycerin 0.[address] 1 tablet 1 Bottle 0 0 Discontinued mg sublingual under the tongue 9 20 (Reorder) tabletIndications: every 5 (five) Chest pain, minutes as unspecified type needed for Chest pain. atorvastatin 80 mg Take 1 tablet by 30 tablet 11 01/20 Discontinued tabletIndications: mouth at 0 20 ( Reorder) Unstable angina bedtime. pectoris apixaban 5 mg Take 1 tablet by 60 tablet 11 02/05/20 Discontinued tabletIndications: mouth 2 (two) 0 20 (Reorder) atrial times daily. fibrillation Indications: atrial fibrillation tamsulosin 0.4 mg Take by mouth 0 0 Discontinued 24 hr capsule daily. 20 (Reord er) lisinopril 2.5 mg Take 2.5 mg by 0 0 Discontinued tablet mouth daily. 20 (Reorde r) clopidogreL 75 mg Take 1 tablet by 30 tablet 11 02/04 Discontinued tabletIndications: mouth daily. 0 20 (Reorder) NSTEMI (non-ST elevated myocardial infarction) pantoprazole 20 mg Take 2 tablets 30 tablet 1 Discontinued EC by mouth daily. 0 20 (Reo rder) tabletIndications: Unstable angina pectoris ondansetron Take 1 tablet by 15 tablet 0 02/05/20 D iscontinued (ZOFRAN ODT) 4 mg mouth every 8 0 20 disintegrating (eight) hours as tabletIndications: needed for Ulcer of left Nausea and foot, unspecified Vomiting (N/V). ulcer stage, Hyperglycemia, Nausea cadexomer iodine Apply to 1 Tube 0 02/05/20 Dis continued 0.9 % area(s) every 0 20 gelIndications: evening. Cellulitis of left foot atorvastatin 40 mg Take 2 tablets 30 tablet 0 Discontinued tabletIndications: by mouth at 0 20 (Reorder) Unstable angina bedtime. pectoris documented as of this encounter (statuses as of 02/05/2020) Active Problems Problem Noted Date Troponin I above reference range 02/05/2020 Pleural effusion 02/04/2020 Elevated brain natriuretic peptide (BNP) level 020 Chest pain in adult 02/03/2020 Cellulitis of left foot 11/16/2019 Pacemaker 08/07/2019 PAF (paroxysmal atrial fibrillation) 08/07/2019 Abdominal pain 07/18/2019 Pacemaker malfunction 06/25/2019 Cellulitis 04/09/2019 Arteriovenous fistula of right femoral vessels 019 NSTEMI (non-ST elevated myocardial infarction) 019 Coronary artery disease involving twin hills coronary chandan ry of twin hills heart 01/17/2019 with angina pectoris Type 2 [...] as of this encounter (statuses as of 02/05/2020) Immunizations Name Administration Dates Next Due Influenza [...] Cans of beer 12.0 quit drinking 20 but drank heavily before this Sex Assigned at Date Recorded Not on file COVID-19 Exposure Response Date Recorded In the last month, have you been in contact with No / Unsure 02/03/2020 4:38 PM CDT someone who was confirmed or suspected to have Coronavirus / COVID-19? documented as of this encounter Last Filed Vital Signs Vital Sign Reading Time Taken Comments Blood Pressure 114/73 02/05/2020 4:00 PM CDT Pulse 81 02/05/2020 4:00 PM CDT Temperature 36.5 C (97.7 F) 02/05/2020 4:00 PM CDT Respiratory Rate 18 02/05/2020 8:01 PM CDT Oxygen Saturation 93% 02/05/2020 8:01 PM CDT Inhaled Oxygen Concentration - - Weight 82 kg (180 lb 11.2 oz) 02/05/2020 4:07 AM CDT Height - - Body Mass Index 28.3 11/16/2019 4:44 PM CDT documented in this encounter Discharge Summaries Timur Gerardo MD - 02/05/2020 5:45 PM CDT [facility] Hospitalist Discharge Summary Date of Service: ADMIT DATE: 02/03/2020 DISCHARGE DATE: 02/05/2020 ATTENDING MD: Timur Gerardo MD PCP: Fransisco Martin REASON FOR ADMISSION Acute on chronic abdominal pain HOSPITAL COURSE: 59 y/o male presents with abdominal pain with exertional dyspnea. Patient was discharged from [facility] for acute on chronic left heel diabeted ulcer, treated with IV abx and discharged to LTAC. He says he finished his abx but then at some point a month ago then left AMA. He reports he has not taken medications for 3-4 weeks. Acute on chronic abdominal pain. Unclear etiology. Possibly due to vascular disease and angina. Needs outpatient vascular surgery. For now will consult GI Dr. Maria. Bentyl QID and tramadol prn Large bilateral pleural effusion Acute CHF, likely diastolic CAD s/p cabg S/p PPM and &defibrillator Hx of left foot osteomyelitis recently treated with prolonged IV abx at facility. Will f/u xray left foot and Dr. Mancera consulted. Hx of chronic left heel pain due to chronic ulcer that he's had CVA Type 2 DM, check A1c Hyperlipidemia Hypertension Hx of nephrolithiasis Depression BPH Arthritis Fibromyalgia Noncompliance with medications for 3-4 weeks Anemia. Work up ordered. F/u tsh, A1c, iron panel, ferritin, occult blood Non-compliant with meds and follow-up due to inability to afford meds Improved with IV lasix. Strict I/Os. Switched to po lasix 40 mg bid. Strict i/o, daily weight, cardiology consult Dr. Geronimo, echo, trend trops, telemetry Hold off on IR thoracentesis for now. Can re-evaluate as outpatient after appropriate diuresis. Needs outpatient pulmonology f/u; please give discharge instrucionts Refilled plavix, eliquis, lipitor, flomax, effexor, levothyroxine, lisinopril, metoprolol xl Has not taken insulin for a while, start glipizide 5 mg BID AC, used to take NPH 16 units in AM and 14 units PM. Sliding scale qachs for now but might need to start NPH Discharged to [facility] PHYSICAL EXAM: General: No acute distress HEENT: Normal oral mucosa, anicteric sclerae, NCAT Skin: No rash, lesions Neuro: AAOx3, no focal deficits Psych: Normal affect SIGNIFICANT LAB/X-RAYS: LABS - reviewed pertinent labs as below: CBC BMP PT/INR WBC (10*3/L) Date Value 02/05/2020 7.06 NA (mmol/L) Date Value 02/05/2020 139 No results found for: PT RBC (10*6/L) Date Value 02/05/2020 3.02 (L) K (mmol/L) Date Value 02/05/2020 3.5 INR (no units) Date Value 02/03/2020 1.2 PLT (10*3/L) Date Value 02/05/2020 232 CALCIUM (mg/dL) Date Value 02/05/2020 8.8 HGB (g/dL) Date Value 02/05/2020 8.7 (L) CL (mmol/L) Date Value 02/05/2020 102 aPTT HCT (%) Date Value 02/05/2020 26.8 (L) BUN (mg/dL) Date Value 02/05/2020 20 APTT Patient (Seconds) Date Value 02/03/2020 29 CREATININE (mg/dL) Date Value 02/05/2020 1.16 IMAGING - reviewed Hospital Encounter on 02/03/20 XR FOOT 3+ VW LEFT Narrative HISTORY: Left heel ulcer and wound. FINDINGS: AP, lateral, oblique views of left foot showed no acute fracture or dislocation. Mild first metatarsophalangeal varus with hallux valgus deformity, mild osteopenia of foot bones, degenerative arthritis of the talonavicular joint and arteriosclerosis noted. Note made of soft tissue ulcer involving heel pad without any involvement of the underlying bone. Comparison is made with 08/15/2019 study CONCLUSIONS: No acute fracture or dislocation or signs of osteomyelitis in the left foot bones. CT ANGIOGRAM ABDOMEN/PELVIS Narrative Ordering Physician: GILMER HARRIS Clinical history: Follow-up known abdominal aortic aneurysm Comparison: None Technique: CT angiography of the chest was performed without and with intravenous contrast. Axial source images, MPRS, and MIPS were reviewed. This examination was performed according to ALARA principles. Findings: There is again noted to be atherosclerotic calcification of the abdominal aorta and its branches. No aneurysm or dissection is apparent. The celiac and superior mesenteric arteries are again noted to arise from a common trunk. No significant stenoses of these arteries are apparent. No significant renal artery stenosis is apparent. There is again noted to be early opacification of the right common femoral vein, likely reflecting arteriovenous fistula. The patient is status post cholecystectomy. The liver, spleen, pancreas, and adrenal glands are unremarkable. A low-attenuation cortical lesion of the right kidney measures slightly greater than water attenuation. This cannot be fully characterized, although it is likely a cyst hyperdense cyst. The prostate gland is mildly enlarged. Mild prominence of the urinary bladder wall is likely due to incomplete distention. A previously noted metallic foreign body within the sigmoid colon, likely endoscopic hemostasis clip, is no longer apparent. There is no evidence of colitis or diverticulitis. A normal appendix is identified. There is no bowel obstruction. There is no free intraperitoneal fluid or free intraperitoneal air. Degenerative and postoperative changes of the lumbar spine are again noted. No acute bony abnormalities are evident. Impression Impression: 1. Atherosclerotic disease, with no aneurysm or dissection of the abdominal aorta. No hemodynamically significant stenoses of the major arterial branches. 2. 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 3. Cholecystectomy. 4. A right adrenal low-attenuation lesion cannot be fully characterized, but may reflect a hyperdense cyst. 5. Prostatic enlargement. RL: 460 End of Report ANGIOGRAM CHEST Narrative Ordering Physician: GILMER HARRIS Clinical history: Known aortic arch dissection. Follow-up. Comparison: None available Technique: CT angiography of the chest was performed with intravenous contrast. Axial source images, MPRS, and MIPS were reviewed. This examination was performed according to ALARA principles. Findings: The patient is status post median sternotomy and left transvenous asymmetric replacement. There is atherosclerotic calcification of the thoracic aorta and its branches, including the coronary arteries. There is a patent stent within the proximal left subclavian artery. There is no thoracic aortic aneurysm or dissection. Precontrast images demonstrate no evidence of intramural hematoma. Heart size is normal. No pericardial effusion is evident. No filling defects are seen within the pulmonary arterial tree to suggest pulmonary embolus. There are large bilateral pleural effusions. Scattered areas of subsegmental atelectasis are seen within both lungs. No intrathoracic lymphadenopathy is apparent. No acute bony abnormalities of the thorax are apparent. Degenerative changes of the spine are noted. Abdominal findings are described in a separate report for CT of the abdomen. Impression Impression: 1. No prior studies for comparison. 2. Atherosclerosis, including atherosclerotic coronary artery disease. The patient is status post pacemaker placement. 3. No evidence of thoracic aortic aneurysm or dissection. 4. Patent stent within the left subclavian artery. 5. Large bilateral pleural effusions, with scattered areas of subsegmental atelectasis. 6. Please see separate report for CTA of the abdomen. RL: 460 End of Report CHEST 1 VW Narrative HISTORY: CHF. TECHNIQUE: Portable AP view of the chest is obtained. Comparison made with 11/20/2019 study. FINDINGS: No acute pneumonia. Small left pleural effusion noted. No pneumothorax or pulmonary congestion detected. Mild cardiomegaly, bipolar permanent pacemaker inserted through left subclavian and midline sternotomy sutures from prior open thoracic surgery noted. Note made of calcified granuloma in the left upper lung and metallic stent probably in left subclavian artery. CONCLUSIONS: Mild cardiomegaly and small left pleural effusion. ITEMS FOR FOLLOW UP PROVIDER: (including pending labs/cultures/studies, anticipated problems, etc.) None FUNCTIONAL STATUS: fully ambulatory DISCHARGE CONDITION: good DIET: cardiac ACTIVITY: as tolerated DISCHARGE MEDICATIONS: Current Discharge Medication List START taking these medications Details furosemide (LASIX) 40 mg Take 40 mg by mouth every morning and evening. Qty: 60 tablet, Refills: 0 Start date: 02/05/2020 Associated Diagnoses: 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 [place] heart withangina pectoris glipiZIDE (GLUCOTROL) 5 mg Take 5 mg by mouth 2 (two) times daily before breakfast and dinner. Qty: 60 tablet, Refills: 0 Start date: 02/05/2020 Associated Diagnoses: 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 [place] heart withangina pectoris KCL (KLOR-CON M20) 20 mEq Take 20 mEq by mouth daily. Qty: 30 tablet, Refills: 1 Start date: 02/06/2020 Associated Diagnoses: 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 [place] heart withangina pectoris metoprolol succinate XL (TOPROL XL) 25 mg Take 25 mg by mouth 2 (two) times daily. Qty: 60 tablet, Refills: 1 Start date: 02/05/2020 Associated Diagnoses: 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 [place] heart withangina pectoris CONTINUE these medications which have CHANGED Details apixaban (ELIQUIS) 5 mg Take 5 mg by mouth 2 (two) times daily. Qty: 60 tablet, Refills: 2 Start date: 02/05/2020 Associated Diagnoses: Paroxysmal atrial fibrillation atorvastatin (LIPITOR) 40 mg Take 40 mg by mouth at bedtime. Qty: 30 tablet, Refills: 0 Start date: 02/05/2020 Associated Diagnoses: Unstable angina pectoris clopidogreL (PLAVIX) 75 mg Take 75 mg by mouth daily. Qty: 30 tablet, Refills: 2 Start date: 02/05/2020 Associated Diagnoses: NSTEMI (non-ST elevated myocardial infarction) levothyroxine (SYNTHROID) 50 mcg Take 50 mcg by mouth every morning. Qty: 30 tablet, Refills: 0 Start date: 02/05/2020 Associated Diagnoses: 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 [place] heart withangina pectoris lisinopriL (PRINIVIL,ZESTRIL) 2.5 mg Take 2.5 mg by mouth daily. Qty: 30 tablet, Refills: 0 Start date: 02/05/2020 Associated Diagnoses: 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 twin [place] heart withangina pectoris nitroglycerin (NITROSTAT) 0.[address] 0.4 mg under the tongue every 5 (five) minutes as needed forChest pain. Qty: 1 Bottle, Refills: 2 Start date: 02/05/2020 Associated Diagnoses: Chest pain, unspecified type pantoprazole (PROTONIX) 20 mg Take 20 mg by mouth daily. Qty: 30 tablet, Refills: 1 Start date: 02/05/2020 Associated Diagnoses: Unstable angina pectoris tamsulosin (FLOMAX) 0.4 mg Take 0.4 mg by mouth daily. Qty: 30 capsule, Refills: 0 Start date: 02/05/2020 Associated Diagnoses: 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 [place] heart withangina pectoris venlafaxine (EFFEXOR) 75 mg Take 75 mg by mouth 2 (two) times daily. Qty: 30 tablet, Refills: 0 Start date: 02/05/2020 Associated Diagnoses: 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 [place] heart withangina pectoris STOP taking these medications cadexomer iodine 0.9 % gel Comments: Reason for Stopping: ondansetron (ZOFRAN-ODT) 4 mg Comments: Reason for Stopping: DISCHARGE: [facility] facility or group home Please call paging services at [phone] to contact Timur Gerardo MD with any questions. Timur Gerardo MD Hospital discharge time took longer than 35 minutes. documented in this encounter Discharge Instructions AttachmentsThe following attachments cannot be sent through Care Everywhere. Abdominal Pain, Adult (Burundian)Chest Pain, Uncertain Cause (Burundian)Metoprolol tablets ([place]ian)Furosemide tablets (Burundian)Glipizide tablets (Burundian) documented in this encounter Progress Notes Ashley Sanchez LMSW - 02/05/2020 4:08 PM CDTSummary: Inpatient Scheduling Spoke with patient prior to discharge to assist with scheduling hospital follow up appointments. Pt is discharging to SNF and reports he would rather wait until they know his discharge date from the SNF to schedule. ONLINE MEDIA BUYER informed patient that the referrals would be deferred for 20 days and she would touch base with him at that time for scheduling. Pt was agreeable to plan. Referrals documented and deferred. Ashley Sanchez LMSW Software Test Developer - [facility] Latrice Jung - 7th floor Office: [phone] (Not for patient use) [email or web address] Leona Loera - 02/05/2020 10:15 AM CDTEncounter: Visit due to POCR assessment Worship: Pentecostalism Assessment: Patient seems to have some social issues & challenges which seems to sometimes hinder him from being fully compliant with self-care. He seems to understand results of not being compliant all the time but shared that sometimes it is beyond his control. He seems to be a person of deep religion joe and recognizes that life and are in God's hands and seems to be at peace either way. He has some social support from his parents who entered room prior to visit ending. Patient stated he has no spiritual/emotional needs at this time. He seems to be coping well. Intervention: Facilitated story telling; listened empathetically; encouraged self-care and coping strategies. Outcome: Patient accepted presence and encouragement support. Plan of Care: No further visit needed but follow-up support is available if needed/wanted. Family Assessment: Mother & Stepfather seemed accepting and adjusting. Mobile Paint Specialist Leona Loera Kimi Moralez LBSW - 02/05/2020 10:02 AM SREEDHARubjective Patient ID: Ernie Rooney is a 59 year old male. Care Management Social Functional Assessment Patient Name: Ernie Rooney Age: [age] year old Sex: male Patient's Previous Admission Date at [facility]: 11/16/2019 Current diagnosis and co-morbidities: Abdominal pain,SOB;chest pain Readmission Questions: Was patient discharged from any acute care hospital within the last 30 days: No Social Functional Assessment: Primary language spoken/preferred: Burundian Mental Status: Alert & Oriented to Person,Place & Time Information given by: Self Patient's support system: Parent Name and number of support system: Rose Desouza, mother [phone] Primary Compliance Mgr: Self MPOA: No Living Arrangement: Home Address of living arrangement : [address] [place] [id number] Persons living in home: Self Barriers to returning home: None Baseline functional status- ambulation: Requires minimal to moderate assistance Functional status-baseline personal care: Independent Baseline functional status- driving: Independent Baseline functional status- grocery shopping: Independent Functional status-baseline housekeeping: Independent Functional status-baseline meal prep: Independent Current functional status same as prior: Yes Do you have a PCP?: Yes Name of PCP: Dr. Martin [facility] Care Agency: No Provider Services: No DME Company: No Equipment: None Hemodialysis: No Community resources utilized: SSA/SSI/Medicaid Funding Resources: Medicaid HMO Prescription coverage plan: Medicare Part D Pharmacy where meds are filled: Other Other pharmacy[facility] Anticipated services prior to disharge: Continue Medical Eval;PT/OT/ST Expected mode of discharge transportation: Wheelchair van Additional Recommendations for DC: medical clearance and SNF placement Additional info required for discharge planning: Pending medical evaluation Recommended discharge plan: New placement SFA Complete: Social Functional Assessment complete: Yes Alcohol Use Screening (AUDIT-C) Did patient elect to have resources provided: No Role of Care Management explained. Any issues or concerns with obtaining/affording your medications at home: no. Are you or your support system able to turkey picker medications at discharge: yes. Review of Systems Objective Physical Exam Assessment/Plan SNF placement FRANCISCO Mckeon Software Test Developer - Care Management [facility] [phone] [email or web address] Chris Barrera MD - 02/05/2020 8:15 AM CDT [facility] Cardiology progress note Date of Service: 02/05/2020 Ernie Rooney is a 59 years old male hospitalized for abdominal pain. Still with intermittent abdominal pain, worse after foods. PHYSICAL EXAM Vitals: 02/04/20 1928 02/04/20 1936 02/04/20 2313 02/05/20 0407 BP: 108/69 99/69 100/63 Pulse: 80 75 75 77 Resp: 18 18 18 18 Temp: 36.2 C (97.1 F) 35.8 C (96.4 F) 35.7 C (96.2 F) TempSrc: Temporal Artery Temporal Artery Temporal Artery SpO2: 90% 95% 99% 97% Weight: 82 kg (180 lb 11.2 oz) General: alert and oriented x 3 (person, place and date/time); no apparent distress HEENT: normocephalic atraumatic Neck: supple, no lymphadenopathy, no bruits, no JVD Lungs: clear to auscultation bilaterally Cardio: S1, S2, normal rate, regular; no murmurs, rubs or gallops Abdomen: non-distended : not examined Rectal: not examined Extremities: no clubbing, cyanosis, or edema Skin: no rashes Neuro: no focal deficits Medications: I have reviewed the patient's medications; see Medication Reconciliation. Labs: I have reviewed the patient's labs. ASSESSMENT AND PLAN Principal Problem: Abdominal pain Active Problems: 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 [place] heart with angina pectoris Type 2 diabetes mellitus without complication, without long-term current use of insulin Essential hypertension Other hyperlipidemia Arteriovenous fistula of right femoral vessels Pacemaker PAF (paroxysmal atrial fibrillation) Chest pain in adult Pleural effusion Elevated brain natriuretic peptide (BNP) level Troponin I above reference range Abdominal pain/Atypical chest pain: ECG shows no dynamic changes noted. Echo showed normal EF and wall motion. Noncompliance: Reviewed the importance of Plavix for atleast one year. Elevated NT pro BNP: Likely acute on chronic diastolic HF: Agree with IV lasix. Good UOP. CADs/p CABGs/p PCI 06/2019: with prior multiple PCI. All graft occulted. Stop ASA.Recommend starting on Plavix + Eliquis if acceptable from primary team. Reviewed the importance of takingPlavixfor at least one year without interruption. Discussed theimplication for not takingPlavix. Patient verbalized understanding. PAF: Based on chart review, device detected atrial fibrillation. Continue Troporl XL 25 BiD Recommend restart Eliquis 5 mg BiD. HTN: Currently on lisinopril 2.5 mg daily. BP is well controlled. Right groin iatrogenic AVF/PAD: Recommend to follow up with [facility] vascular surgery. T2DM: Follows PCP. History bradycardia s/pSt JudePPM: Device clinic follow up recommended. Reviewed the CT images and report 09/18/2018. "The right ventricular pacemaker lead penetrating the myocardium and extends to the epicardial fat. No periventricular hematoma is identified" Will observe. May need follow up EP appointment. Dyslipidemia: Recommended to keep LDL <70. Lifestyle modifications stressed. Recommend restarting lipitor 40 mg daily Troponin elevation--Likely type 2 CO in the setting of HF, demand ischemia. Chris Geronimo MD, FACC, [employer], Division of Cardiology [facility] Timur Sauceda MD - 02/04/2020 10:59 AM CDT [facility] Hospitalist Progress Note SUBJECTIVE: No acute events overnight. CURRENT MEDICATIONS - reviewed. Current Facility-Administered Medications Medication Dose Route Frequency Last Rate Last Dose atorvastatin (LIPITOR) tablet 40 mg 40 mg Oral QHS dextrose 50 % in water (D50W) injection 25 mL 25 mL Slow IV Push PRN dicyclomine (BENTYL) tablet 20 mg 20 mg Oral TID 20 mg at 02/04/20 0818 docusate (COLACE) capsule 100 mg 100 mg Oral BID 100 mg at 02/04/20 0817 furosemide (LASIX) injection 20 mg 20 mg IV Push Q6H 20 mg at 02/04/20 0735 glipiZIDE (GLUCOTROL) tablet 5 mg 5 mg Oral BIDAC 5 mg at 02/04/20 0817 glucagon (GLUCAGEN DIAGNOSTIC KIT) injection 1 mg 1 mg Intramuscular PRN levothyroxine (SYNTHROID) tablet 50 mcg 50 mcg Oral QAM-0600 lisinopriL (PRINIVIL,ZESTRIL) tablet 2.5 mg 2.5 mg Oral DAILY metoprolol succinate XL (TOPROL XL) tablet 25 mg 25 mg Oral BID 25 mg at 02/04/20 0127 ondansetron (ZOFRAN (PF)) injection 4 mg 4 mg Slow IV Push Q6HPRN 4 mg at 02/04/20 0817 sennosides (SENOKOT) tablet 8.6 mg 8.6 mg Oral BID 8.6 mg at 02/04/20 0817 Sliding Scale Insulin - Aspart (NOVOLOG) + Fsbg Testing Subcutaneous TID MEALS+HS 2 Units at02/04/20 0818 tamsulosin (FLOMAX) capsule 0.4 mg 0.4 mg Oral DAILY 0.4 mg at 02/04/20 0817 traMADoL (ULTRAM) tablet 50 mg 50 mg Oral Q8HPRN 50 mg at 02/04/20 0419 venlafaxine XR (EFFEXOR XR) 24 hr capsule 75 mg 75 mg Oral BID 75 mg at 02/04/20 0817 PHYSICAL EXAM: BP 134/82 | Pulse 78 | Temp 35.9 C (96.7 F) (Temporal Artery) | Resp 18 | Wt 184 lb (83.5 kg) | SpO2 97% | BMI 28.82 kg/m General: No respiratory distress HEENT: NCAT Lungs: Symmetric expansion Musculoskeletal: Normal muscle mass, no synovitis Skin: No rash or lesions Neuro: AAOx3, no focal deficits Psych: Normal affect LABS/IMAGING - reviewed, pertinent results as below: CBC BMP PT/INR WBC (10*3/L) Date Value 02/04/2020 5.64 NA (mmol/L) Date Value 02/04/2020 140 No results found for: PT RBC (10*6/L) Date Value 02/04/2020 3.21 (L) K (mmol/L) Date Value 02/04/2020 4.0 INR (no units) Date Value 02/03/2020 1.2 PLT (10*3/L) Date Value 02/04/2020 270 CALCIUM (mg/dL) Date Value 02/04/2020 9.0 HGB (g/dL) Date Value 02/04/2020 9.4 (L) CL (mmol/L) Date Value 02/04/2020 106 aPTT HCT (%) Date Value 02/04/2020 28.7 (L) BUN (mg/dL) Date Value 02/04/2020 12 APTT Patient (Seconds) Date Value 02/03/2020 29 CREATININE (mg/dL) Date Value 02/04/2020 0.91 IMAGING- Hospital Encounter on 02/03/20 XR FOOT 3+ VW LEFT Narrative HISTORY: Left heel ulcer and wound. FINDINGS: AP, lateral, oblique views of left foot showed no acute fracture or dislocation. Mild first metatarsophalangeal varus with hallux valgus deformity, mild osteopenia of foot bones, degenerative arthritis of the talonavicular joint and arteriosclerosis noted. Note made of soft tissue ulcer involving heel pad without any involvement of the underlying bone. Comparison is made with 08/15/2019 study CONCLUSIONS: No acute fracture or dislocation or signs of osteomyelitis in the left foot bones. CT ANGIOGRAM ABDOMEN/PELVIS Narrative Ordering Physician: GILMER HARRIS Clinical history: Follow-up known abdominal aortic aneurysm Comparison: None Technique: CT angiography of the chest was performed without and with intravenous contrast. Axial source images, MPRS, and MIPS were reviewed. This examination was performed according to ALARA principles. Findings: There is again noted to be atherosclerotic calcification of the abdominal aorta and its branches. No aneurysm or dissection is apparent. The celiac and superior mesenteric arteries are again noted to arise from a common trunk. No significant stenoses of these arteries are apparent. No significant renal artery stenosis is apparent. There is again noted to be early opacification of the right common femoral vein, likely reflecting arteriovenous fistula. The patient is status post cholecystectomy. The liver, spleen, pancreas, and adrenal glands are unremarkable. A low-attenuation cortical lesion of the right kidney measures slightly greater than water attenuation. This cannot be fully characterized, although it is likely a cyst hyperdense cyst. The prostate gland is mildly enlarged. Mild prominence of the urinary bladder wall is likely due to incomplete distention. A previously noted metallic foreign body within the sigmoid colon, likely endoscopic hemostasis clip, is no longer apparent. There is no evidence of colitis or diverticulitis. A normal appendix is identified. There is no bowel obstruction. There is no free intraperitoneal fluid or free intraperitoneal air. Degenerative and postoperative changes of the lumbar spine are again noted. No acute bony abnormalities are evident. Impression Impression: 1. Atherosclerotic disease, with no aneurysm or dissection of the abdominal aorta. No hemodynamically significant stenoses of the major arterial branches. 2. 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 3. Cholecystectomy. 4. A right adrenal low-attenuation lesion cannot be fully characterized, but may reflect a hyperdense cyst. 5. Prostatic enlargement. RL: 460 End of Report ANGIOGRAM CHEST Narrative Ordering Physician: GILMER HARRIS Clinical history: Known aortic arch dissection. Follow-up. Comparison: None available Technique: CT angiography of the chest was performed with intravenous contrast. Axial source images, MPRS, and MIPS were reviewed. This examination was performed according to ALARA principles. Findings: The patient is status post median sternotomy and left transvenous asymmetric replacement. There is atherosclerotic calcification of the thoracic aorta and its branches, including the coronary arteries. There is a patent stent within the proximal left subclavian artery. There is no thoracic aortic aneurysm or dissection. Precontrast images demonstrate no evidence of intramural hematoma. Heart size is normal. No pericardial effusion is evident. No filling defects are seen within the pulmonary arterial tree to suggest pulmonary embolus. There are large bilateral pleural effusions. Scattered areas of subsegmental atelectasis are seen within both lungs. No intrathoracic lymphadenopathy is apparent. No acute bony abnormalities of the thorax are apparent. Degenerative changes of the spine are noted. Abdominal findings are described in a separate report for CT of the abdomen. Impression Impression: 1. No prior studies for comparison. 2. Atherosclerosis, including atherosclerotic coronary artery disease. The patient is status post pacemaker placement. 3. No evidence of thoracic aortic aneurysm or dissection. 4. Patent stent within the left subclavian artery. 5. Large bilateral pleural effusions, with scattered areas of subsegmental atelectasis. 6. Please see separate report for CTA of the abdomen. RL: 460 End of Report CHEST 1 VW Narrative HISTORY: CHF. TECHNIQUE: Portable AP view of the chest is obtained. Comparison made with 11/20/2019 study. FINDINGS: No acute pneumonia. Small left pleural effusion noted. No pneumothorax or pulmonary congestion detected. Mild cardiomegaly, bipolar permanent pacemaker inserted through left subclavian and midline sternotomy sutures from prior open thoracic surgery noted. Note made of calcified granuloma in the left upper lung and metallic stent probably in left subclavian artery. CONCLUSIONS: Mild cardiomegaly and small left pleural effusion. ASSESSMENT/PLAN Ernie Rooney is a 59 year old male with PMH as listed above, admitted to the hospital with: 59 y/o male presents with abdominal pain with exertional dyspnea. Patient was discharged from [facility] for acute on chronic left heel diabeted ulcer, treated with IV abx and discharged to LTAC. He says he finished his abx but then at some point a month ago then left AMA. He reports he has not taken medications for 3-4 weeks. Acute on chronic abdominal pain. Unclear etiology. Possibly due to vascular disease and angina. Needs outpatient vascular surgery. For now will consult GI Dr. Maria. Bentyl QID and tramadol prn Large bilateral pleural effusion Acute CHF, likely diastolic CAD s/p cabg S/p PPM and & defibrillator Hx of left foot osteomyelitis recently treated with prolonged IV abx at facility. Will f/u xray left foot and Dr. Mancera consulted. Hx of chronic left heel pain due to chronic ulcer that he's had CVA Type 2 DM, check A1c Hyperlipidemia Hypertension Hx of nephrolithiasis Depression BPH Arthritis Fibromyalgia Noncompliance with medications for 3-4 weeks Anemia. Work up ordered. F/u tsh, A1c, iron panel, ferritin, occult blood IV lasix. Strict I/Os. Strict i/o, daily weight, cardiology consult Dr. Geronimo, echo, trend trops, telemetry Hold off on IR consult for now. Will re-evaluate after adequate diuresis. Needs outpatient pulmonology f/u; please give discharge instrucionts Takes plavix, eliquis, lipitor, flomax, effexor, levothyroxine, lisinopril, metoprolol xl Hold eliquis and plavix in anticipation for procedure. Will bridge with lovenox for now. Will need scripts of all medications for at least 1-2 months Has not taken insulin for a while, start glipizide 5 mg BID AC, used to take NPH 16 units in AM and 14 units PM. Sliding scale qachs for now but might need to start NPH dvt proph lovenox Full Code Dispo - home health after cleared for discharge by cardiology Timur Gerardo MD documented in this encounter H&P Notes Coral Leblanc MD - 02/03/2020 10:00 PM CDT General Internal Medicine Admission History & Physical CHIEF COMPLAINT: abdominal and chest pain History of Present Illness 59 y/o male presents with generalized sharp, intermittent abdominal pain especially all across upperabdomen associated with some nausea, dyspnea especially with exertion, atypical sharp substernal nonradiating chest pain severe. Patient was discharged from [facility] for acute on chronic left heel diabeted ulcer, treated with IV abx and discharged to LTAC. He says he finished his abx but then at some point a month agog left AMA. He reports he has not taken medications for 3-4 weeks. PAST MEDICAL HISTORY Past Medical History: Diagnosis Date Arthritis BPH (benign prostatic hyperplasia) CAD (coronary artery disease) CVA (cerebral vascular accident) DM (diabetes mellitus) Fibromyalgia HLD (hyperlipidemia) HTN (hypertension) Hx of CABG 2002 Kidney stones Major depressive disorder Past Surgical History: Procedure Laterality Date BACK SURGERY 1997 for impinged nerve & herniated disk CHOLECYSTECTOMY 2003 CORONARY ARTERY BYPASS GRAFT [address] [facility]; for bradycardia MI CSI ANY OTHER THAN PCI 2 YR 2018 MI REMOVAL OF KIDNEY STONE 2009 Family History Problem Relation Age of Onset CO (myocardial infarction) Father 65 Diabetes Maternal Grandmother CO (myocardial infarction) Maternal Grandfather Stroke Maternal Grandfather ALLERGIES No Known Allergies MEDICATIONS Current Discharge Medication List STOP taking these medications cadexomer iodine 0.9 % gel Comments: Reason for Stopping: ondansetron (ZOFRAN ODT) 4 mg disintegrating tablet Comments: Reason for Stopping: pantoprazole 20 mg EC tablet Comments: Reason for Stopping: clopidogreL 75 mg tablet Comments: Reason for Stopping: lisinopril 2.5 mg tablet Comments: Reason for Stopping: tamsulosin 0.4 mg 24 hr capsule Comments: Reason for Stopping: apixaban 5 mg tablet Comments: Reason for Stopping: atorvastatin 80 mg tablet Comments: Reason for Stopping: nitroglycerin 0.4 mg sublingual tablet Comments: Reason for Stopping: levothyroxine 50 mcg tablet Comments: Reason for Stopping: venlafaxine 75 mg tablet Comments: Reason for Stopping: SOCIAL HISTORY Social History Socioeconomic History Marital status: Spouse name: Not on file Number of children: 0 Years of education: Not on file Highest education level: Not on file Occupational History Occupation: disabled Social Needs Financial resource strain: Patient refused Food insecurity Worry: Patient refused Inability: Patient refused Transportation needs Medical: Patient refused Non-medical: Patient refused Tobacco Use Smoking status: Former Smoker Types: Cigarettes Quit date: 2015 Years since quittin.7 Smokeless tobacco: Never Used Tobacco comment: quit 4 years ago Substance and Sexual Activity Alcohol use: No Alcohol/week: 12.0 standard drinks Types: 12 Cans of beer per week Comment: quit drinking 2013 but drank heavily before this Drug use: No Sexual activity: Not on file Lifestyle Physical activity Days per week: Not on file Minutes per session: Not on file Stress: Not on file Relationships Social connections Talks on phone: Not on file Gets together: Not on file Attends religion service: Not on file Active member of club or organization: Not on file Attends meetings of clubs or organizations: Not on file Relationship status: Not on file Intimate partner violence Fear of current or ex partner: Not on file Emotionally abused: Not on file Physically abused: Not on file Forced sexual activity: Not on file Other Topics Concern Not on file Social History Narrative Not on file REVIEW OF SYSTEMS Constitutional: negative fevers/chills, weight changes Eyes: negative acute blurry vision, eye discharge Ears, Nose, Mouth, Throat: negative dysphagia, runny nose, sore throat, tinnitus Cardiovascular: positive chest pain, paplitaitons Respiratory: positive sob, denies cough Gastrointestinal: positive abd pain, nausea Genitourinary: Negative dysuria, hematuria Musculoskeletal: negative calf pain, swelling Integumentray: negative rash, itching Neurological: negative syncope, focal weakness Positive headaches and generalized weakness Psychiatric: negative hallucinations PHYSICAL EXAMINATION Vitals: 02/03/20201302/03/20 2100 02/03/20 2202 02/03/20 2331 BP: (!) 141/86 (!) 151/81 (!) 150/99 (!) 143/86 Pulse: 89 89 94 88 Resp: 14 12 16 16 Temp: 36.6 C (97.8 F) 36.2 C (97.2 F) TempSrc: Temporal Artery Temporal Artery SpO2: 100% 99% 100% 100% Weight: NAD, lying comfortably Anicteric sclera, oral mucosa clear Diminished air entry b/l RRR, nl s1s2 Abd soft NT No significant LE, no calf tenderness AAO, no gross deficits Skin warm and dry Bilateral knees inspected and palpated and is not red or swollen LABS - reviewed pertinent labs as below: CBC BMP PT/INR WBC (10*3/L) Date Value 02/03/2020 6.92 NA (mmol/L) Date Value 02/03/2020 139 No results found for: PT RBC (10*6/L) Date Value 02/03/2020 3.09 (L) K (mmol/L) Date Value 02/03/2020 3.8 INR (no units) Date Value 02/03/2020 1.2 PLT (10*3/L) Date Value 02/03/2020 276 CALCIUM (mg/dL) Date Value 02/03/2020 9.1 HGB (g/dL) Date Value 02/03/2020 9.0 (L) CL (mmol/L) Date Value 02/03/2020 105 aPTT HCT (%) Date Value 02/03/2020 27.2 (L) BUN (mg/dL) Date Value 02/03/2020 13 APTT Patient (Seconds) Date Value 02/03/2020 29 CREATININE (mg/dL) Date Value 02/03/2020 0.95 IMAGING - reviewed, pertinent results as below: Hospital Encounter on 02/03/20 CT ANGIOGRAM ABDOMEN/PELVIS Narrative Ordering Physician: GILMER HARRIS Clinical history: Follow-up known abdominal aortic aneurysm Comparison: None Technique: CT angiography of the chest was performed without and with intravenous contrast. Axial source images, MPRS, and MIPS were reviewed. This examination was performed according to ALARA principles. Findings: There is again noted to be atherosclerotic calcification of the abdominal aorta and its branches. No aneurysm or dissection is apparent. The celiac and superior mesenteric arteries are again noted to arise from a common trunk. No significant stenoses of these arteries are apparent. No significant renal artery stenosis is apparent. There is again noted to be early opacification of the right common femoral vein, likely reflecting arteriovenous fistula. The patient is status post cholecystectomy. The liver, spleen, pancreas, and adrenal glands are unremarkable. A low-attenuation cortical lesion of the right kidney measures slightly greater than water attenuation. This cannot be fully characterized, although it is likely a cyst hyperdense cyst. The prostate gland is mildly enlarged. Mild prominence of the urinary bladder wall is likely due to incomplete distention. A previously noted metallic foreign body within the sigmoid colon, likely endoscopic hemostasis clip, is no longer apparent. There is no evidence of colitis or diverticulitis. A normal appendix is identified. There is no bowel obstruction. There is no free intraperitoneal fluid or free intraperitoneal air. Degenerative and postoperative changes of the lumbar spine are again noted. No acute bony abnormalities are evident. Impression Impression: 1. Atherosclerotic disease, with no aneurysm or dissection of the abdominal aorta. No hemodynamically significant stenoses of the major arterial branches. 2. 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 3. Cholecystectomy. 4. A right adrenal low-attenuation lesion cannot be fully characterized, but may reflect a hyperdense cyst. 5. Prostatic enlargement. RL: 460 End of Report ANGIOGRAM CHEST Narrative Ordering Physician: GILMER HARRIS Clinical history: Known aortic arch dissection. Follow-up. Comparison: None available Technique: CT angiography of the chest was performed with intravenous contrast. Axial source images, MPRS, and MIPS were reviewed. This examination was performed according to ALARA principles. Findings: The patient is status post median sternotomy and left transvenous asymmetric replacement. There is atherosclerotic calcification of the thoracic aorta and its branches, including the coronary arteries. There is a patent stent within the proximal left subclavian artery. There is no thoracic aortic aneurysm or dissection. Precontrast images demonstrate no evidence of intramural hematoma. Heart size is normal. No pericardial effusion is evident. No filling defects are seen within the pulmonary arterial tree to suggest pulmonary embolus. There are large bilateral pleural effusions. Scattered areas of subsegmental atelectasis are seen within both lungs. No intrathoracic lymphadenopathy is apparent. No acute bony abnormalities of the thorax are apparent. Degenerative changes of the spine are noted. Abdominal findings are described in a separate report for CT of the abdomen. Impression Impression: 1. No prior studies for comparison. 2. Atherosclerosis, including atherosclerotic coronary artery disease. The patient is status post pacemaker placement. 3. No evidence of thoracic aortic aneurysm or dissection. 4. Patent stent within the left subclavian artery. 5. Large bilateral pleural effusions, with scattered areas of subsegmental atelectasis. 6. Please see separate report for CTA of the abdomen. RL: 460 End of Report : A-sensed, V-paced ASSESSMENT/PLAN Ernie Rooney is a 59 year old male with PMH as listed above, admitted to the hospital with: Chestpain in adult 59 y/o male presents with generalized sharp, intermittent abdominal pain especially all across upperabdomen associated with some nausea, dyspnea especially with exertion, atypical sharp substernal nonradiating chest pain severe. Patient was discharged from [facility] for acute on chronic left heel diabeted ulcer, treated with IV abx and discharged to LT[facility]. He says he finished his abx but then at some point a month agog left AMA. He reports he has not taken medications for 3-4 weeks. Acute on chronic abdominal pain. Unclear etiology. Possibly due to vascular disease and angina. Needs outpatient vascular surgery. For now will consult GI Dr. Maria. Bentyl QID and tramadol prn Large bilateral pleural effusion Acute CHF, likely diastolic CAD s/p cabg S/p PPM and & defibrillator Hx of left foot osteomyelitis recently treated with prolonged IV abx at facility. Will f/u xray left foot and Dr. Mancera consulted. Hx of chronic left heel pain due to chronic ulcer that he's had CVA Type 2 DM, check A1c Hyperlipidemia Hypertension Hx of nephrolithiasis Depression BPH Arthritis Fibromyalgia Noncompliance with medications for 3-4 weeks Anemia. Work up ordered. F/u tsh, A1c, iron panel, ferritin, occult blood CT chest and abdomen done in ER IV lasix 20 mg Q6h Strict i/o, daily weight, cardiology consult Dr. Geronimo, echo, trend trops, telemetry IR consult for therapeutic consult b/l Labs ordered for therapeutic consult Needs outpatient pulmonology f/u; please give discharge instrucionts Plavix, eliquis, lipitor, flomax, effexor, levothyroxine, lisinopril, metoprolol xl Start eliquis and plavix after thoracocentesis by IR Will need scripts of all medications for at least 1-2 months Has not taken insulin for a while, start glipizide 5 mg BID AC, used to take NPH 16 units in AM and 14 units PM. Sliding scale qachs for now but might need to start NPH dvt proph lovenox Full Code Place in admission F/u Xray in AM Dispo - home health after cleared for discharge by cardiology documented in this encounter Consult Notes Barbara Maria MD - 02/04/2020 4:25 PM CDTAssociated Order(s): CONSULT GASTROENTEROLOGY Gastroenterology IP Consult Requesting Physician: Timur Gerardo MD Reason for Consult: Abdominal pain : 1960 Date of Service: 02/04/2020 CHIEF COMPLAINT: We were asked to see Ernie Rooney 59 year old male who presents with abdominal pain. History of Present Illness This is a 59 year old man presenting with chest discomfort and upper abdominal pain, intermittent worsening, on the background of chronic pain, worse with food. He is known to have significant vascular disease and CHF, on AICD and CAD with stent He also has lost some weight PAST MEDICAL HISTORY Past Medical History: Diagnosis Date Arthritis BPH (benign prostatic hyperplasia) CAD (coronary artery disease) CVA (cerebral vascular accident) DM (diabetes mellitus) Fibromyalgia HLD (hyperlipidemia) HTN (hypertension) Hx of CABG 2002 Kidney stones Major depressive disorder Past Surgical History: Procedure Laterality Date BACK SURGERY 1997 for impinged nerve & herniated disk CHOLECYSTECTOMY 2003 CORONARY ARTERY BYPASS GRAFT [address] [facility]; for bradycardia MI CSI ANY OTHER THAN PCI 2 YR 2018 MI REMOVAL OF KIDNEY STONE 2009 FAMILY HISTORY Family History Problem Relation Age of Onset CO (myocardial infarction) Father 65 Diabetes Maternal Grandmother CO (myocardial infarction) Maternal Grandfather Stroke Maternal Grandfather Allergies Patient has no known allergies. MEDICATIONS Current Facility-Administered Medications Medication Dose Route Frequency Last Rate Last Dose [START ON 02/05/2020] aspirin chewable tablet 81 mg 81 mg Oral DAILY atorvastatin (LIPITOR) tablet 40 mg 40 mg Oral QHS dextrose 50 % in water (D50W) injection 25 mL 25 mL Slow IV Push PRN dicyclomine (BENTYL) tablet 20 mg 20 mg Oral TID 20 mg at 02/04/20 1424 docusate (COLACE) capsule 100 mg 100 mg Oral BID 100 mg at 02/04/20 0817 enoxaparin (LOVENOX) injection 80 mg 80 mg Subcutaneous Q12H 80 mg at 02/04/20 1232 furosemide (LASIX) injection 20 mg 20 mg IV Push Q6H 20 mg at 02/04/20 1232 glipiZIDE (GLUCOTROL) tablet 5 mg 5 mg Oral BIDAC 5 mg at 02/04/20 0817 glucagon (GLUCAGEN DIAGNOSTIC KIT) injection 1 mg 1 mg Intramuscular PRN levothyroxine (SYNTHROID) tablet 50 mcg 50 mcg Oral QAM-0600 lisinopriL (PRINIVIL,ZESTRIL) tablet 2.5 mg 2.5 mg Oral DAILY metoprolol succinate XL (TOPROL XL) tablet 25 mg 25 mg Oral BID 25 mg at 02/04/20 0127 morpHINE injection 4 mg 4 mg Slow IV Push Q4HPRN 4 mg at 02/04/20 1239 mupirocin (BACTROBAN OINT) 2 % skin ointment Topical BID ondansetron (ZOFRAN (PF)) injection 4 mg 4 mg Slow IV Push Q6HPRN 4 mg at 02/04/20 1424 sennosides (SENOKOT) tablet 8.6 mg 8.6 mg Oral BID 8.6 mg at 02/04/20 08 Sliding Scale Insulin - Aspart (NOVOLOG) + Fsbg Testing Subcutaneous TID MEALS+HS 2 Units at02/04/20 1232 sulfur hexafluoride microsphr (LUMASON) injection 5 mL 5 mL Intravenous ONCE tamsulosin (FLOMAX) capsule 0.4 mg 0.4 mg Oral DAILY 0.4 mg at 02/04/20 08 traMADoL (ULTRAM) tablet 50 mg 50 mg Oral Q8HPRN 50 mg at 02/04/20 0419 venlafaxine XR (EFFEXOR XR) 24 hr capsule 75 mg 75 mg Oral BID 75 mg at 02/04/20 08 [email or web address]@@ SOCIAL HISTORY Social History Tobacco Use Smoking Status Former Smoker Types: Cigarettes Quit date: 2015 Years since quittin.7 Smokeless Tobacco Never Used Tobacco Comment quit 4 years ago Social History Substance and Sexual Activity Alcohol Use No Alcohol/week: 12.0 standard drinks Types: 12 Cans of beer per week Comment: quit drinking 2013 but drank heavily before this Social History Substance and Sexual Activity Drug Use No REVIEW OF SYSTEMS General: negative Skin: negative HEENT: negative Neck: negative Heme: negative Resp: negative Cardio: negative GI: (+) See Hpi : negative Endo: negative Neuro: negative Back: negative JANELL: negative Psych: negative PHYSICAL EXAMINATION Patient Vitals for the past 12 hrs: BP Temp Temp src Pulse Resp SpO2 02/04/20 1600 111/69 36 C (96.8 F) TEMPORAL ART 76 20 94 % 02/04/20 1200 131/81 35.4 C (95.8 F) TEMPORAL ART 82 20 95 % 02/04/20 0812 16 98 % 02/04/20 0800 134/82 35.9 C (96.7 F) TEMPORAL ART 78 18 97 % No intake or output data in the 24 hours ending 02/04/20 1626 General: alert and oriented x 4 (person, place, date/time and situation); no apparent distress HEENT: normocephalic atraumatic Neck: supple, no lymphadenopathy, no bruits, no JVD Lungs: clear to auscultation bilaterally Cardio: S1, S2 normal; no murmurs, rubs or gallops Abdomen: soft; non-tender; non-distended; normoactive bowel sounds Extremities: no clubbing, cyanosis, or edema Skin: no rashes Neuro: no focal deficits LABORATORY CBC BMP LFT/A/L WBC (10*3/L) Date Value 02/04/2020 5.64 NA (mmol/L) Date Value 02/04/2020 140 ALBUMIN (g/dL) Date Value 02/03/2020 3.9 RBC (10*6/L) Date Value 02/04/2020 3.21 (L) K (mmol/L) Date Value 02/04/2020 4.0 T PROTEIN (g/dL) Date Value 02/03/2020 7.4 02/03/2020 7.0 PLT (10*3/L) Date Value 02/04/2020 270 CL (mmol/L) Date Value 02/04/2020 106 TOTAL BILI (mg/dL) Date Value 02/03/2020 0.4 HGB (g/dL) Date Value 02/04/2020 9.4 (L) CO2 TOTAL (mmol/L) Date Value 02/04/2020 27 BILI UNCON (mg/dL) Date Value 02/03/2020 0.5 HCT (%) Date Value 02/04/2020 28.7 (L) BUN (mg/dL) Date Value 02/04/2020 12 BILI CONJ (mg/dL) Date Value 02/03/2020 0.0 MCV (fL) Date Value 02/04/2020 89.4 CREATININE (mg/dL) Date Value 02/04/2020 0.91 ALT(SGPT) (U/L) Date Value 02/13/2019 18 ALTv (U/L) Date Value 02/03/2020 15 GLUCOSE (mg/dL) Date Value 02/04/2020 150 (H) AST(SGOT) (U/L) Date Value 02/03/2020 23 ALK PHOS (U/L) Date Value 02/03/2020 127 (H) SERGIO (U/L) Date Value 02/03/2020 110 LIPASE (U/L) Date Value 02/03/2020 180 PT/INR PROTIME PATIENT (Seconds) Date Value 02/03/2020 14.9 (H) INR (no units) Date Value 02/03/2020 1.2 RADIOLOGY: Ordering Physician: GILMER HARRIS Clinical history: Known aortic arch dissection. Follow-up. Comparison: None available Technique: CT angiography of the chest was performed with intravenous contrast. Axial source images, MPRS, and MIPS were reviewed. This examination was performed according to ALARA principles. Findings: The patient is status post median sternotomy and left transvenous asymmetric replacement. There is atherosclerotic calcification of the thoracic aorta and its branches, including the coronary arteries. There is a patent stent within the proximal left subclavian artery. There is no thoracic aortic aneurysm or dissection. Precontrast images demonstrate no evidence of intramural hematoma. Heart size is normal. No pericardial effusion is evident. No filling defects are seen within the pulmonary arterial tree to suggest pulmonary embolus. There are large bilateral pleural effusions. Scattered areas of subsegmental atelectasis are seen within both lungs. No intrathoracic lymphadenopathy is apparent. No acute bony abnormalities of the thorax are apparent. Degenerative changes of the spine are noted. Abdominal findings are described in a separate report for CT of the abdomen. IMPRESSION Impression: 1. No prior studies for comparison. 2. Atherosclerosis, including atherosclerotic coronary artery disease. The patient is status post pacemaker placement. 3. No evidence of thoracic aortic aneurysm or dissection. 4. Patent stent within the left subclavian artery. 5. Large bilateral pleural effusions, with scattered areas of subsegmental atelectasis. 6. Please see separate report for CTA of the abdomen. RL: [address] End of [address] ANGIOGRAM CHEST (Order: [id number]) - 02/03/2020 Ordering Physician: GILMER HARRIS Clinical history: Follow-up known abdominal aortic aneurysm Comparison: None Technique: CT angiography of the chest was performed without and with intravenous contrast. Axial source images, MPRS, and MIPS were reviewed. This examination was performed according to ALARA principles. Findings: There is again noted to be atherosclerotic calcification of the abdominal aorta and its branches. No aneurysm or dissection is apparent. The celiac and superior mesenteric arteries are again noted to arise from a common trunk. No significant stenoses of these arteries are apparent. No significant renal artery stenosis is apparent. There is again noted to be early opacification of the right common femoral vein, likely reflecting arteriovenous fistula. The patient is status post cholecystectomy. The liver, spleen, pancreas, and adrenal glands are unremarkable. A low-attenuation cortical lesion of the right kidney measures slightly greater than water attenuation. This cannot be fully characterized, although it is likely a cyst hyperdense cyst. The prostate gland is mildly enlarged. Mild prominence of the urinary bladder wall is likely due to incomplete distention. A previously noted metallic foreign body within the sigmoid colon, likely endoscopic hemostasis clip, is no longer apparent. There is no evidence of colitis or diverticulitis. A normal appendix is identified. There is no bowel obstruction. There is no free intraperitoneal fluid or free intraperitoneal air. Degenerative and postoperative changes of the lumbar spine are again noted. No acute bony abnormalities are evident. IMPRESSION Impression: 1. Atherosclerotic disease, with no aneurysm or dissection of the abdominal aorta. No hemodynamically significant stenoses of the major arterial branches. 2. 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 3. Cholecystectomy. 4. A right adrenal low-attenuation lesion cannot be fully characterized, but may reflect a hyperdense cyst. 5. Prostatic enlargement. RL: 460 End of Report Imaging [address] ANGIOGRAM ABDOMEN/PELVIS (Order: [id number]) - 02/03/2020 ASSESSMENT and PLAN Ernie Rooney is a 59 year old male with PMH as listed above 1. Chronic abdominal pain, worse with food. There is no significant ostial narrowing of any of the splanchnic vessels on CTA. I suspect he is still having symptoms from poor cardiac function affecting the abdomen "abdominal angina". An UGI series July 2019 was not diagnostic of any significant issue explaining the symptoms. Suggest maximize cardiac medical therapy. No indication for invasive procedure 2. DM 3. CAD S/P CO, PCI 2-2019, S/P AICD Barbara Maria MD 02/04/2020 5:19 PM Kimi Eugene LBSW - 02/04/2020 2:30 PM CDTAssociated Order(s): CONSULT ECONOMIC ANALYST-ADULTSpoke with patient regarding recommendations for SNF placement. Explained services and will providedpatient with a list of in network agencies to consider. Pt is agreeable to plan and has no preference for a SNF. SW will submit to various facilities and await authorization. FRANCISCO Mckeon Software Test Developer - Care Management [facility] [phone] [email or web address] Eula Flores, PT - 02/04/2020 11:03 AM CDTAssociated Order(s): CONSULT ADULT PHYSICAL THERAPY Patient agreeable to working with physical therapy. Patient met Semi reclined in bed. PHYSICAL THERAPY EVALUATION Consult received, chart reviewed and evaluation complete this date. Patient is referred to PT for evaluation and treatment. Patient is a 59 year old male who presents to hospital for Abdominal pain,SOB chest pain . Discharge Recommendations: Therapy Needs and Potential: Patient demonstrates good potential to improve and meet therapy goals with further physical therapy services. Challenges to Home Transition: increased risk of falls decreased safety awareness environmental barriers 14 steps of stair Equipment recommendations: rolling walker Current Functional Status and/or Treatment:Functional mobility training, Transfer training, Gait training and Patient/Family/Caregiver education Bed Mobility: Supine to sit: Minimal assist Scooting to edge of bed: Minimal assist Sit to supine: Minimal assist. Transfers: Sit to stand: Minimal assist using MANAGER LEGAL Stand to sit: Min A using MANAGER LEGAL Verbal cueing provided for correct hand placement and correct use of AD Ambulation: NT due to patient felt dizzy and nauseated. Patient was given emesis bag. Therapeutic exercise: patient/caregiver verbalizes understanding of instructions. After session, patient Semi reclined in bed. Call button provided. Patient nausea and dizziness subside after few minutes on semi reclined. Nurse was notified on patient's current situation. PLAN OF CARE: At least 2 times per week, once or twice a day (while in hospital) per patient's tolerance and medical needs. See below for complete details. Admit Date: 02/03/2020 Hospital Diagnosis:Abdominal pain,SOB chest pain PT Diagnosis: Difficulty walking and Weakness Weight Bearing Precaution: NA General Precautions: General, Fall,Cedeno catheter Bracing/Cast present or required:N/A PMH: Past Medical History: Diagnosis Date Arthritis BPH (benign prostatic hyperplasia) CAD (coronary artery disease) CVA (cerebral vascular accident) DM (diabetes mellitus) Fibromyalgia HLD (hyperlipidemia) HTN (hypertension) Hx of CABG 2003 Kidney stones Major depressive disorder PSH: Past Surgical History: Procedure Laterality Date BACK SURGERY 1997 for impinged nerve & herniated disk CHOLECYSTECTOMY 2003 CORONARY ARTERY BYPASS GRAFT [address] [facility]; for bradycardia MI CSI ANY OTHER THAN PCI 2 YR 2018 MI REMOVAL OF KIDNEY STONE 2009 Prior Living Situation: lives with a roommate in a garage apartment with 14 steps of stair. DME: Four wheeled walker with seat Prior level of Mobility: house hold ambulation Subjective: Patient stated that he has abdominal pain. Patient/Family Goals: To get better and go home. Patient/Family verbalizes understanding of condition: Yes PAIN: -Pain Location: abdomen -Pain rating before treatment: does not rate, After treatment: does not rate -Pain Management: Nursing Notified COMMUNICATION Primary Language: Burundian Able to Verbalize needs: Yes Vision:good; no issues reported Hearing:good; no issues reported ORIENTATION/COGNITION: Oriented to: person, place and date/time Awake: Yes Alert: Yes Dizzy: Yes Follows Commands: Yes 1-Step Yes Multi-Step Yes Inconsistent: No NEUROLOGICAL Light Touch: within functional limits bilateral LE Heel to ford: NT Tone: Normal BALANCE: Sitting: Static: Good Dynamic: Good Standing: Static: Fair+ Dynamic: NT RANGE OF MOTION: within functional limits bilateral LE STRENGTH: 4-/5 (G-), bilateral LE ENDURANCE: NT SKIN INTEGRITY: intact PROBLEM LIST: Decline in bed mobility, Decline in gait, Decline in transfers, Difficulty with stairs, Decreased strength and Safety awareness deficits ASSESSMENT: Patient is a 59 year old male seen secondary to the above listed diagnosis. Patient would benefit from continued PT to address the above listed deficits to maximize independence and safety with functional mobility. Rehabilitation Potential: guarded Goals: The following goals are to maximize independence and safety with functional mobility to eventually return to prior living situation and prior functional status. Upon discharge, patient and/or family will demonstrate the followin. Supine to sit: Modified independent Scooting to edge of bed: Modified independent Sit to supine: Modified independent 2. Sit to stand: Modified independent using Rolling Walker Stand to sit: Modified independent using Rolling Walker 3. CGA with ambulation, Feet: 150 using least assistive device. 4. CGA up/down 4 stairs using no rails. 4. Demonstrate or verbalize understanding of home exercise program in order to continue with their rehab on their own. Treatment Plan: Gait training, Gait training on stairs, Therapeutic exercise, Transfer training, Balance training, Bed mobility training and Safety education, patient/caregiver education PATIENT EDUCATION: Patient provided with preferred teaching of verbal information on role of PT, plan of care. Shows readiness to learn. Verbal instruction teaching provided. Individual is able to readand verbalizes understanding of teaching provided. Eula Batres,PT [place] License: [id number] Required Components in Determining Evaluation Level History: No personal factors or comorbidities: No (94537) 1-2 personal factors and/or comorbidities: Yes (31351) 3 or more personal factors and/ or comorbidities: No (34663) Examination of Body System(s) Addressing 1-2 elements: Yes (30775) Addressing a total of 3 or more elements: No (09269) Addressing a total of 4 or more elements: No (95821) Clinical Presentation Stable: Yes (91296) Evolving: No (65605) Unstable: No (11691) Clinical Decision Making (Complexity) Low: Yes (70511) Moderate: No (69092) High: No (09011) Terri Castrejon MD - 02/04/2020 8:15 AM CDTAssociated Order(s): CONSULT CARDIOLOGY [facility] Cardiology Consult Note Patient: Ernie Rooney Date of : 1960 Date of service: 02/04/2020 Primary Care Physician: Fransisco Martin CHIEF COMPLAINT: Chief Complaint Patient presents with Abdominal Pain Shortness of Breath Headache HISTORY OF PRESENT ILLNESS: Ernie Rooney is a 59 year old male presented to the ER for evaluation for chest pain/abd pain. History from patient. Patient seen and examined in the room. Pertinent cardiac related history reviewed from chart Presented with generalized sharp, intermittent abdominal pain especially all across upper abdomen associated with some nausea. Patient was admission for acute on chronic left heel diabeted ulcer, treated with IV abx and discharged to LTAC. He says he finished his abx but then at some point a month agog left AMA. He reports he has not taken medications for 3-4 weeks including his cardiac meds. IRVING NYHA Class II-III stable. No PND or orthopnea. No pedal edema. No exertional palpitations or palpitations at rest. No syncopalattacks. History ofs/p pacemaker,CAD, CVA, IDDM, HTN, CABG 2002s/p PCI 2019, PAD, right groin iatrogenic AVF. Chronic diastolic HF w improved EF 55-60% TTE 07/16/18 (TTE from [facility] EF 45%), NYHA 2, Stage C Hx Bradycardia s/p PPM in [facility]. H/o L subclavian steal syndrome (per [facility] records) HLD H/o CVA (w L residual weakness, 5 strokes Previous Cardiac Studies: IMAGING - I personally reviewed, pertinent results as below: ECG 01/2020 Atrial-sensed ventricular-paced rhythm Abnormal ECG ECG 07/2019 Atrial-sensed ventricular-paced rhythm Abnormal ECG 06/2018 Impression: - All grafts Occluded - Significant proximal to mid LAD and D1 disease - Significant OM2 and mid LCx disease - Significant proximal, mid and distal RCA disease Cath 12/2018 INTERVENTION IMPRESSION: -Successful PCI of large OM2 with BRIEN x 1 Cath 01/2019 INTERVENTION IMPRESSION: Successful Rotational atherectomy of proximal calcified LAD Successfull BRIEN to mid and proximal LAD PTCAof Diagonal Cath 06/2019 DIAGNOSTIC IMPRESSION: 70% stenosis in the proximal portion, followed by 80% stenosis in the midportion and 99% stenosis (ENTERTAINMENT REPORTER) in the distal RCAat the origin of PLB. PLANS: l PCI to proximal, mid and distal RCA. INTERVENTION IMPRESSION: (1) Successful PCI to proximal, mid and distal RCA. Echo 06/2019 Interpretation Summary A two-dimensional transthoracic echocardiogram with M-mode and Doppler was performed. The study was technically adequate. Compared to prior study, there is no significant change. Left ventricular systolic function is normal. Ejection Fraction = 55-60%. Diastolic function is indeterminate Insufficient Tricuspid regurgitation jet to estimate RVSP PAST MEDICAL HISTORY Past Medical History: Diagnosis Date Arthritis BPH (benign prostatic hyperplasia) CAD (coronary artery disease) CVA (cerebral vascular accident) DM (diabetes mellitus) Fibromyalgia HLD (hyperlipidemia) HTN (hypertension) Hx of CABG 2002 Kidney stones Major depressive disorder Past Surgical History: Procedure Laterality Date BACK SURGERY 1997 for impinged nerve & herniated disk CHOLECYSTECTOMY 2003 CORONARY ARTERY BYPASS GRAFT [address] [facility]; for bradycardia MI CSI ANY OTHER THAN PCI 2 YR 2018 MI REMOVAL OF KIDNEY STONE 2009 Family History Problem Relation Age of Onset CO (myocardial infarction) Father 65 Diabetes Maternal Grandmother CO (myocardial infarction) Maternal Grandfather Stroke Maternal Grandfather SOCIAL HISTORY Social History Socioeconomic History Marital status: Spouse name: Not on file Number of children: 0 Years of education: Not on file Highest education level: Not on file Occupational History Occupation: disabled Social Needs Financial resource strain: Patient refused Food insecurity Worry: Patient refused Inability: Patient refused Transportation needs Medical: Patient refused Non-medical: Patient refused Tobacco Use Smoking status: Former Smoker Types: Cigarettes Quit date: 2016 Years since quittin.7 Smokeless tobacco: Never Used Tobacco comment: quit 4 years ago Substance and Sexual Activity Alcohol use: No Alcohol/week: 12.0 standard drinks Types: 12 Cans of beer per week Comment: quit drinking 2013 but drank heavily before this Drug use: No Sexual activity: Not on file Lifestyle Physical activity Days per week: Not on file Minutes per session: Not on file Stress: Not on file Relationships Social connections Talks on phone: Not on file Gets together: Not on file Attends religion service: Not on file Active member of club or organization: Not on file Attends meetings of clubs or organizations: Not on file Relationship status: Not on file Intimate partner violence Fear of current or ex partner: Not on file Emotionally abused: Not on file Physically abused: Not on file Forced sexual activity: Not on file Other Topics Concern Not on file Social History Narrative Not on file ALLERGIES No Known Allergies MEDICATIONS Current Discharge Medication List STOP taking these medications cadexomer iodine 0.9 % gel Comments: Reason for Stopping: ondansetron (ZOFRAN ODT) 4 mg disintegrating tablet Comments: Reason for Stopping: pantoprazole 20 mg EC tablet Comments: Reason for Stopping: clopidogreL 75 mg tablet Comments: Reason for Stopping: lisinopril 2.5 mg tablet Comments: Reason for Stopping: tamsulosin 0.4 mg 24 hr capsule Comments: Reason for Stopping: apixaban 5 mg tablet Comments: Reason for Stopping: atorvastatin 80 mg tablet Comments: Reason for Stopping: nitroglycerin 0.4 mg sublingual tablet Comments: Reason for Stopping: levothyroxine 50 mcg tablet Comments: Reason for Stopping: venlafaxine 75 mg tablet Comments: Reason for Stopping: Current Facility-Administered Medications: [START ON 02/05/2020] apixaban (ELIQUIS) tablet 5 mg, 5 mg, Oral, BID, Coral Leblanc MD atorvastatin (LIPITOR) tablet 40 mg, 40 mg, Oral, QHS, Coral Leblanc MD [START ON 02/05/2020] clopidogreL (PLAVIX) tablet 75 mg, 75 mg, Oral, DAILY, Coral Leblanc MD dextrose 50 % in water (D50W) injection 25 mL, 25 mL, Slow IV Push, PRN, Coral Leblanc MD dicyclomine (BENTYL) tablet 20 mg, 20 mg, Oral, TID, Coral Leblanc MD, 20 mg at 02/04/20 0126 docusate (COLACE) capsule 100 mg, 100 mg, Oral, BID, Coral Leblanc MD, 100 mg at 02/04/20 0127 furosemide (LASIX) injection 20 mg, 20 mg, IV Push, Q6H, Coral Leblanc MD, 20 mg at 02/04/20 0735 glipiZIDE (GLUCOTROL) tablet 5 mg, 5 mg, Oral, BIDAC, Coral Leblanc MD, Stopped at 02/04/20 0100 glucagon (GLUCAGEN DIAGNOSTIC KIT) injection 1 mg, 1 mg, Intramuscular, PRN, Coral Leblanc MD levothyroxine (SYNTHROID) tablet 50 mcg, 50 mcg, Oral, QAM-0600, Coral Leblanc MD lisinopriL (PRINIVIL,ZESTRIL) tablet 2.5 mg, 2.5 mg, Oral, DAILY, Coral Leblanc MD metoprolol succinate XL (TOPROL XL) tablet 25 mg, 25 mg, Oral, BID, Coral Leblanc MD, 25 mg at 02/04/20 0127 ondansetron (ZOFRAN (PF)) injection 4 mg, 4 mg, Slow IV Push, Q6HPRN, Coral Leblanc MD sennosides (SENOKOT) tablet 8.6 mg, 8.6 mg, Oral, BID, Coral Leblanc MD, 8.6 mg at 02/04/20 0127 Sliding Scale Insulin - Aspart (NOVOLOG) + Fsbg Testing, , Subcutaneous, TID MEALS+HS, Coral Leblanc MD, Stopped at 02/04/20 0230 tamsulosin (FLOMAX) capsule 0.4 mg, 0.4 mg, Oral, DAILY, Coral Leblanc MD traMADoL (ULTRAM) tablet 50 mg, 50 mg, Oral, Q8HPRN, Coral Leblanc MD, 50 mg at 02/04/20 0419 venlafaxine XR (EFFEXOR XR) 24 hr capsule 75 mg, 75 mg, Oral, BID, Coral Leblanc MD, 75 mg at02/04/20 0419 REVIEW OF SYSTEMS: Comprehensive 10-system review was conducted and were negative except for what's noted in the HPI. The following systems were reviewed: Constitutional, cardiovascular, respiratory, gastrointestinal, genitourinary, musculoskeletal, neurologic, psychiatric, endocrinological, and hematological. PHYSICAL EXAMINATION: Vitals: 02/03/20 2100 02/03/20 2202 02/03/20 2331 02/04/20 0328 BP: (!) 151/81 (!) 150/99 (!) 143/86 135/84 Pulse: 89 94 88 81 Resp: 12 16 16 16 Temp: 36.6 C (97.8 F) 36.2 C (97.2 F) 36.2 C (97.1 F) TempSrc: Temporal Artery Temporal Artery Temporal Artery SpO2: 99% 100% 100% 100% Weight: 184 lb (83.5 kg) General: no apparent distress HEENT: normocephalic atraumatic Neck: supple, no lymphadenopathy, no bruits, no JVD Lungs: clear to auscultation bilaterally. No wheezes or rhonchi. No increased work of breathing. Cardio: Regular rate and rhythm, S1&S2 normal, no murmurs, rubs or gallops Abdomen: soft; non-tender; non-distended; normoactive bowel sounds. : not examined Rectal: not examined Extremities: no clubbing, cyanosis, or edema. Skin: no rashes, no visible lesions. Neuro: no gross focal deficits LABS - Reviewed pertinent labs as below: CBC BMP PT/INR WBC (10*3/L) Date Value 02/04/2020 5.64 NA (mmol/L) Date Value 02/04/2020 140 No results found for: PT PLT (10*3/L) Date Value 02/04/2020 270 K (mmol/L) Date Value 02/04/2020 4.0 INR (no units) Date Value 02/03/2020 1.2 HGB (g/dL) Date Value 02/04/2020 9.4 (L) BUN (mg/dL) Date Value 02/04/2020 12 HCT (%) Date Value 02/04/2020 28.7 (L) CREATININE (mg/dL) Date Value 02/04/2020 0.91 LIPID PROFILE GLUCOSE (mg/dL) Date Value 02/04/2020 150 (H) CHOL (mg/dL) Date Value 08/06/2019 185 TSH LDL CHOL (mg/dL) Date Value 08/06/2019 102 TSH (mIU/L) Date Value 02/03/2020 3.40 CARDIAC ENZYMES HDL (mg/dL) Date Value 08/06/2019 27 (L) No results found for: CK TRIG (mg/dL) Date Value 08/06/2019 280 (H) LFTs No results found for: CKMB AST(SGOT) (U/L) Date Value 02/03/2020 23 TROPONIN I (ng/mL) Date Value 02/04/2020 0.039 (H) ALT(SGPT) (U/L) Date Value 02/13/2019 18 ALTv (U/L) Date Value 02/03/2020 15 No results found for: BNP LDL CHOL (mg/dL) Date Value 08/06/2019 102 Recent Labs 02/04/20 0144 TROPNI 0.039* Recent Labs 08/06/19 1452 TRIG 280* LDL CHOL (mg/dL) Date Value 08/06/2019 102 NT-proBNP (pg/mL) Date Value 02/04/2020 1,920 (H) ASSESSMENT/PLAN Principal Problem: Chest pain in adult Active Problems: Atypical chest pain 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 [place] heart with angina pectoris Type 2 diabetes mellitus without complication, without long-term current use of insulin Essential hypertension Other hyperlipidemia Arteriovenous fistula of right femoral vessels Pacemaker PAF (paroxysmal atrial fibrillation) Pleural effusion Elevated brain natriuretic peptide (BNP) level Atypical chest pain by history: Resolved. No recurrence noted. ECG shows no dynamic changes noted. Recommend Serial trop X 2, Echo to assess to EF and wall motion changes. Tele monitoring. Noncompliance: Reviewed the importance of Plavix for atleast one year. Elevated NT pro BNP: Likely acute on chronic diastolic HF: Agree with IV lasix. CAD s/p CABG s/p PCI 06/2019: with prior multiple PCI. All graft occulted. On ASA + Plavix completely one month post PCI Stop ASA Recommend starting on Plavix + Eliquis if acceptable from primary team. Reviewed the importance of taking Plavix for at least one year without interruption. Discussed the implication for not taking Plavix. Patient verbalized understanding. PAF: Based on chart review, device detected atrial fibrillation. Continue Troporl XL 25 BiD Recommend restart Eliquis 5 mg BiD. HTN: Currently on lisinopril 2.5 mg daily. Right groin iatrogenic AVF/PAD: Recommend to follow up with [facility] vascular surgery. T2DM: Follows PCP. History bradycardia s/p [facility] PPM: Device clinic follow up recommended. Reviewed the CT images and report 09/18/2018. "The right ventricular pacemaker lead penetrating the myocardium and extends to the epicardial fat. No periventricular hematoma is identified" Will observe. May need follow up EP appointment. Dyslipidemia: Recommended to keep LDL < 70. Lifestyle modifications stressed. Recommend restarting lipitor 40 mg daily My diagnostic impression and treatment plans were discussed at length with the patient. Thank you for allowing us to participate in the care of Ernie Rooney. If you have any questions or concerns please feel free to call our office at [phone]. I would be happy to be of further assistance for Ernie Rooney wellbeing. Emil Castillo MD [employer], Division of Cardiology [facility] documented in this encounter Nursing Notes Aisha Hi RN - 02/05/2020 6:00 PM CDTReport [facility] to [facility] at [facility]. documented in this encounter ED Notes Cecelia Montemayor RN - 02/03/2020 4:48 PM CDT59 year old male coming to the ER for abdominal pain left upper quadrant. Patient report bloody stools with SOB. Patient reports the pain his left upper abdominal area has been going on for a year. But recently the pain became worse. VS stable. Gilmer Sheridan FNP - 02/03/2020 4:39 PM CDT EMERGENCY DEPARTMENT ENCOUNTER [facility] Patient Name: Ernie Rooney Date of : 1960 59 year old Exam Room:TX5/TX5 Primary Care Physician: Fransisco Martin [facility]- [facility] Patient Escorted by: Self [9] Mode of Arrival: Personal means [1] EMS Treatment Prior to ED Arrival: n/a [employer] treatment: None Chief Complaint Chief Complaint Patient presents with Abdominal Pain Shortness of Breath Headache HPI Patient is a 59 year old male with a hx of CAD, CVA, BPH, HLD, HTN presents to ED for evaluation andtreatment due to worsening of left abdominal pain. Patient stated he's had abdominal pain for 1 yearbut in the last 3 days pain has worsened with radiation to the back,chest and left arm accompanied by nausea. He describes pain as intermittent sharp and burning pain, ranging from 4/10 to 10/10 on pain severity scale. History provided by: Patient diplomatic interpreter used: No Abdominal Pain Pain location: LUQ Pain quality: burning and sharp Pain radiates to: Chest and L shoulder Pain severity: Severe Onset quality: Gradual Duration: 3 days Timing: Intermittent Progression: Waxing and waning Chronicity: New Context: recent travel Context: not diet changes and not trauma Relieved by: None tried Worsened by: Nothing Ineffective treatments: None tried Associated symptoms: chest pain, nausea and shortness of breath Associated symptoms: no chills, no constipation, no diarrhea, no dysuria, no fever, no hematuria andno vomiting Risk factors: multiple surgeries and obesity Shortness of Breath Associated symptoms: abdominal pain, chest pain and headaches Associated symptoms: no fever and no vomiting Headache Associated symptoms: abdominal pain and nausea Associated symptoms: no diarrhea, no fever, no vomiting and no weakness Past Medical History / Immunizations Past Medical History: Diagnosis Date Arthritis BPH (benign prostatic hyperplasia) CAD (coronary artery disease) CVA (cerebral vascular accident) DM (diabetes mellitus) Fibromyalgia HLD (hyperlipidemia) HTN (hypertension) Hx of CABG 2003 Kidney stones Major depressive disorder Tetanus received in last 5 years: Unknown Past Surgical History Past Surgical History: Procedure Laterality Date BACK SURGERY 1997 for impinged nerve & herniated disk CHOLECYSTECTOMY 2003 CORONARY ARTERY BYPASS GRAFT [address] [facility]; for bradycardia MI CSI ANY OTHER THAN PCI 2 YR 2018 MI REMOVAL OF KIDNEY STONE 2009 Allergies No Known Allergies Social History Tobacco Use Former Smoker; Quit 2015; Smoked: Cigarettes. Smokeless Tobacco: Never used smokeless tobacco. Comments: quit 4 years ago Alcohol Use No. Comments: quit drinking 2013 but drank heavily before this Drug Use No. Review of Systems Review of Systems Constitutional: Negative for activity change, appetite change, chills and fever. HENT: Negative. Eyes: Negative. Respiratory: Positive for shortness of breath. Cardiovascular: Positive for chest pain. Gastrointestinal: Positive for abdominal pain and nausea. Negative for abdominal distention, anal bleeding, blood in stool, constipation, diarrhea, rectal pain and vomiting. Genitourinary: Negative for bladder incontinence, dysuria, frequency, hematuria, flank pain, decreased urine volume and difficulty urinating. Neurological: Positive for headaches. Negative for weakness. Physical Exam BP 134/82 | Pulse 78 | Temp 35.9 C (96.7 F) (Temporal Artery) | Resp 18 | Wt 83.5 kg (184 lb) | SpO2 97% | BMI 28.82 kg/m Physical Exam Vitals signs and nursing note reviewed. Constitutional: Appearance: He is well-developed. Eyes: Pupils: Pupils are equal, round, and reactive to light. Neck: Musculoskeletal: Normal range of motion. Cardiovascular: Rate and Rhythm: Normal rate. Heart sounds: Normal heart sounds. Pulmonary: Effort: Pulmonary effort is normal. No respiratory distress. Breath sounds: No wheezing. Abdominal: General: There is no distension. Palpations: There is no mass. Tenderness: There is abdominal tenderness in the left upper quadrant. There is no guarding or rebound. Musculoskeletal: Normal range of motion. Skin: General: Skin is warm and dry. Neurological: Mental Status: He is alert and oriented to person, place, and time. Labs Recent Results (from the past 24 hour(s)) CBC with Differential Collection Time: 02/03/20 5:29 PM Result Value Ref Range WBC 6.92 4.20 - 10.70 10*3/L RBC 3.09 (L) 4.26 - 5.52 10*6/L HGB 9.0 (L) 12.2 - 16.4 g/dL HCT 27.2 (L) 38.4 - 49.3 % MCV 88.0 81.7 - 95.6 fL MCH 29.1 26.1 - 32.7 pg MCHC 33.1 31.2 - 35.0 g/dL RDW-SD 43.7 38.5 - 51.6 fL RDW-CV 13.7 12.1 - 15.4 % PLT 276 150 - 328 10*3/L MPV 9.7 (L) 9.8 - 13.0 fL NRBC/100 WBC 0.0 0.0 - 10.0 /100 WBCs NRBC x10^3 <0.01 10*3/L GRAN MAT (NEUT) % 55.9 % IMM GRAN % 0.40 % LYMPH % 27.9 % MONO % 11.4 % EOS % 4.0 % BASO % 0.4 % GRAN MAT x10^3(ANC) 3.86 1.99 - 6.95 10*3/uL IMM GRAN x10^3 0.03 0.00 - 0.06 10*3/uL LYMPH x10^3 1.93 1.09 - 3.23 10*3/uL MONO x10^3 0.79 0.36 - 1.02 10*3/uL EOS x10^3 0.28 0.06 - 0.53 10*3/uL BASO x10^3 0.03 0.01 - 0.09 10*3/uL Basic Metabolic Panel (NA, K, CL, CO2, GLUCOSE, BUN, CREATININE, CA) Collection Time: 02/03/20 5:29 PM Result Value Ref Range NA 139 135 - 145 mmol/L K 3.8 3.5 - 5.0 mmol/L CL 105 98 - 108 mmol/L CO2 TOTAL 23 23 - 31 mmol/L AGAP 11 2 - 16 BUN 13 7 - 23 mg/dL GLUCOSE 223 (H) 70 - 110 mg/dL CREATININE 0.95 0.60 - 1.25 mg/dL CALCIUM 9.1 8.6 - 10.6 mg/dL eGFR Calculation (Non-) 80.6 mL/min/1.73m2 eGFR Calculation () 97.7 mL/min/1.73m2 Hepatic Function Panel (ALB, T.PRO, BILI T, BU/BC, ALT, AST, ALK PHOS) Collection Time: 02/03/20 5:29 PM Result Value Ref Range TOTAL BILI 0.4 0.1 - 1.1 mg/dL BILI UNCON 0.5 0.1 - 1.1 mg/dL BILI CONJ 0.0 0.0 - 0.3 mg/dL T PROTEIN 7.4 6.3 - 8.2 g/dL ALBUMIN 3.9 3.5 - 5.0 g/dL ALK PHOS 127 (H) 34 - 122 U/L ALTv 15 5 - 50 U/L AST(SGOT) 23 13 - 40 U/L Lipase Serum Collection Time: 02/03/20 5:29 PM Result Value Ref Range LIPASE 180 0 - 220 U/L Troponin I Collection Time: 02/03/20 5:29 PM Result Value Ref Range TROPONIN I 0.034 <=0.034 ng/mL aPTT Collection Time: 02/03/20 5:29 PM Result Value Ref Range APTT Patient 29 23 - 38 Seconds Prothrombin Time (PT) / INR Collection Time: 02/03/20 5:29 PM Result Value Ref Range PROTIME PATIENT 14.9 (H) 12.0 - 14.7 Seconds INR 1.2 N-TERMINAL PRO-BNP Collection Time: 02/03/20 5:29 PM Result Value Ref Range NT-proBNP 2,300 (H) <=125 pg/mL Glucose, Level Collection Time: 02/03/20 5:29 PM Result Value Ref Range GLUCOSE 220 (H) 70 - 110 mg/dL Protein Total Serum Collection Time: 02/03/20 5:29 PM Result Value Ref Range T PROTEIN 7.0 6.3 - 8.2 g/dL THYROID STIMULATING HORMONE Collection Time: 02/03/20 5:29 PM Result Value Ref Range TSH 3.40 0.45 - 4.70 mIU/L FERRITIN SERUM Collection Time: 02/03/20 5:29 PM Result Value Ref Range FERRITIN 20.4 18.0 - 464.0 ng/mL URIC ACID Collection Time: 02/03/20 5:29 PM Result Value Ref Range URIC ACID 7.5 3.6 - 8.0 mg/dL AMYLASE Collection Time: 02/03/20 5:29 PM Result Value Ref Range SERGIO 110 35 - 110 U/L Urinalysis Collection Time: 02/03/20 5:47 PM Result Value Ref Range APPEARANCE Clear Clear COLOR Yellow Yellow PH 6.0 4.8 - 8.0 SP GRAVITY 1.013 1.003 - 1.030 GLU U QUAL 150 mg/dL (A) Normal BLOOD 1+ (A) Negative KETONES Negative Negative PROTEIN 100 mg/dL (A) Negative UROBILIN Normal Normal BILIRUBIN Negative Negative NITRITE Negative Negative LEUK PETER Negative Negative RBC/HPF 3 0 - 3 HPF WBC/HPF 1 0 - 5 HPF BACTERIA Negative Negative MUCOUS Slight (A) Negative LPF COVID-19 (ID NOW RAPID TESTING) Collection Time: 02/03/20 8:18 PM Specimen: NASOPHARYNGEAL SWAB Result Value Ref Range SARS-CoV-2 Rapid ID NOW Not Detected Not Detected Lactic Acid Whole Blood Collection Time: 02/04/20 1:32 AM Result Value Ref Range LACTIC ACID 1.60 mmol/L IRON PANEL Collection Time: 02/04/20 1:44 AM Result Value Ref Range IRON 38 (L) 50 - 160 ug/dL TIBC 352 250 - 410 ug/dL % FE SAT 11 (L) 20 - 50 % TROPONIN I Collection Time: 02/04/20 1:44 AM Result Value Ref Range TROPONIN I 0.039 (H) <=0.034 ng/mL Lactate Dehydrogenase Collection Time: 02/04/20 1:44 AM Result Value Ref Range LDH 590 300 - 600 U/L CBC WITH DIFF Collection Time: 02/04/20 1:44 AM Result Value Ref Range WBC 5.64 4.20 - 10.70 10*3/L RBC 3.21 (L) 4.26 - 5.52 10*6/L HGB 9.4 (L) 12.2 - 16.4 g/dL HCT 28.7 (L) 38.4 - 49.3 % MCV 89.4 81.7 - 95.6 fL MCH 29.3 26.1 - 32.7 pg MCHC 32.8 31.2 - 35.0 g/dL RDW-SD 45.0 38.5 - 51.6 fL RDW-CV 13.7 12.1 - 15.4 % PLT 270 150 - 328 10*3/L MPV 9.8 9.8 - 13.0 fL NRBC/100 WBC 0.0 0.0 - 10.0 /100 WBCs NRBC x10^3 <0.01 10*3/L GRAN MAT (NEUT) % 50.8 % IMM GRAN % 0.20 % LYMPH % 34.0 % MONO % 9.8 % EOS % 4.8 % BASO % 0.4 % GRAN MAT x10^3(ANC) 2.87 1.99 - 6.95 10*3/uL IMM GRAN x10^3 <0.03 0.00 - 0.06 10*3/uL LYMPH x10^3 1.92 1.09 - 3.23 10*3/uL MONO x10^3 0.55 0.36 - 1.02 10*3/uL EOS x10^3 0.27 0.06 - 0.53 10*3/uL BASO x10^3 <0.03 0.01 - 0.09 10*3/uL BASIC METABOLIC PANEL (NA, K, CL, CO2, GLUCOSE, BUN, CREATININE, CA) Collection Time: 02/04/20 1:44 AM Result Value Ref Range NA 140 135 - 145 mmol/L K 4.0 3.5 - 5.0 mmol/L CL 106 98 - 108 mmol/L CO2 TOTAL 27 23 - 31 mmol/L AGAP 7 2 - 16 BUN 12 7 - 23 mg/dL GLUCOSE 150 (H) 70 - 110 mg/dL CREATININE 0.91 0.60 - 1.25 mg/dL CALCIUM 9.0 8.6 - 10.6 mg/dL eGFR Calculation (Non-) 84.7 mL/min/1.73m2 eGFR Calculation () 102.7 mL/min/1.73m2 N-TERMINAL PRO-BNP Collection Time: 02/04/20 1:44 AM Result Value Ref Range NT-proBNP 1,920 (H) <=125 pg/mL URIC ACID Collection Time: 02/04/20 1:44 AM Result Value Ref Range URIC ACID 7.7 3.6 - 8.0 mg/dL Type and Screen - ONCE Routine Collection Time: 02/04/20 1:47 AM Result Value Ref Range ABO & RH O Positive IAT Negative POCT GLUCOSE (AUTOMATED) Collection Time: 02/04/20 2:28 AM Result Value Ref Range POCT GLU 141 (H) 70 - 110 mg/dL ABORH CONFIRMATION Collection Time: 02/04/20 5:00 AM Result Value Ref Range ABO & RH O Positive POCT GLUCOSE (AUTOMATED) Collection Time: 02/04/20 7:47 AM Result Value Ref Range POCT GLU 232 (H) 70 - 110 mg/dL Imaging Hospital Encounter on 02/03/20 XR FOOT 3+ VW LEFT Narrative HISTORY: Left heel ulcer and wound. FINDINGS: AP, lateral, oblique views of left foot showed no acute fracture or dislocation. Mild first metatarsophalangeal varus with hallux valgus deformity, mild osteopenia of foot bones, degenerative arthritis of the talonavicular joint and arteriosclerosis noted. Note made of soft tissue ulcer involving heel pad without any involvement of the underlying bone. Comparison is made with 08/15/2019 study CONCLUSIONS: No acute fracture or dislocation or signs of osteomyelitis in the left foot bones. CT ANGIOGRAM ABDOMEN/PELVIS Narrative Ordering Physician: GILMER HARRIS Clinical history: Follow-up known abdominal aortic aneurysm Comparison: None Technique: CT angiography of the chest was performed without and with intravenous contrast. Axial source images, MPRS, and MIPS were reviewed. This examination was performed according to ALARA principles. Findings: There is again noted to be atherosclerotic calcification of the abdominal aorta and its branches. No aneurysm or dissection is apparent. The celiac and superior mesenteric arteries are again noted to arise from a common trunk. No significant stenoses of these arteries are apparent. No significant renal artery stenosis is apparent. There is again noted to be early opacification of the right common femoral vein, likely reflecting arteriovenous fistula. The patient is status post cholecystectomy. The liver, spleen, pancreas, and adrenal glands are unremarkable. A low-attenuation cortical lesion of the right kidney measures slightly greater than water attenuation. This cannot be fully characterized, although it is likely a cyst hyperdense cyst. The prostate gland is mildly enlarged. Mild prominence of the urinary bladder wall is likely due to incomplete distention. A previously noted metallic foreign body within the sigmoid colon, likely endoscopic hemostasis clip, is no longer apparent. There is no evidence of colitis or diverticulitis. A normal appendix is identified. There is no bowel obstruction. There is no free intraperitoneal fluid or free intraperitoneal air. Degenerative and postoperative changes of the lumbar spine are again noted. No acute bony abnormalities are evident. Impression Impression: 1. Atherosclerotic disease, with no aneurysm or dissection of the abdominal aorta. No hemodynamically significant stenoses of the major arterial branches. 2. 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 3. Cholecystectomy. 4. A right adrenal low-attenuation lesion cannot be fully characterized, but may reflect a hyperdense cyst. 5. Prostatic enlargement. RL: [id number] End of Report ANGIOGRAM CHEST Narrative Ordering Physician: GILMER HARRIS Clinical history: Known aortic arch dissection. Follow-up. Comparison: None available Technique: CT angiography of the chest was performed with intravenous contrast. Axial source images, MPRS, and MIPS were reviewed. This examination was performed according to ALARA principles. Findings: The patient is status post median sternotomy and left transvenous asymmetric replacement. There is atherosclerotic calcification of the thoracic aorta and its branches, including the coronary arteries. There is a patent stent within the proximal left subclavian artery. There is no thoracic aortic aneurysm or dissection. Precontrast images demonstrate no evidence of intramural hematoma. Heart size is normal. No pericardial effusion is evident. No filling defects are seen within the pulmonary arterial tree to suggest pulmonary embolus. There are large bilateral pleural effusions. Scattered areas of subsegmental atelectasis are seen within both lungs. No intrathoracic lymphadenopathy is apparent. No acute bony abnormalities of the thorax are apparent. Degenerative changes of the spine are noted. Abdominal findings are described in a separate report for CT of the abdomen. Impression Impression: 1. No prior studies for comparison. 2. Atherosclerosis, including atherosclerotic coronary artery disease. The patient is status post pacemaker placement. 3. No evidence of thoracic aortic aneurysm or dissection. 4. Patent stent within the left subclavian artery. 5. Large bilateral pleural effusions, with scattered areas of subsegmental atelectasis. 6. Please see separate report for CTA of the abdomen. RL: [id number] End of Report CHEST 1 VW Narrative HISTORY: CHF. TECHNIQUE: Portable AP view of the chest is obtained. Comparison made with 11/20/2019 study. FINDINGS: No acute pneumonia. Small left pleural effusion noted. No pneumothorax or pulmonary congestion detected. Mild cardiomegaly, bipolar permanent pacemaker inserted through left subclavian and midline sternotomy sutures from prior open thoracic surgery noted. Note made of calcified granuloma in the left upper lung and metallic stent probably in left subclavian artery. CONCLUSIONS: Mild cardiomegaly and small left pleural effusion. Orders and Treatments Orders Placed This Encounter Procedures CT ANGIOGRAM CHEST CT ANGIOGRAM ABDOMEN/PELVIS XR FOOT 3+ VW LEFT XR CHEST 1 VW Urinalysis CBC with Differential Basic Metabolic Panel (NA, K, CL, CO2, GLUCOSE, BUN, CREATININE, CA) Hepatic Function Panel (ALB, T.PRO, BILI T, BU/BC, ALT, AST, ALK PHOS) Lipase Serum Troponin I aPTT Prothrombin Time (PT) / INR N-TERMINAL PRO-BNP COVID-19 (ID NOW RAPID TESTING) Glucose, Level Lactate Dehydrogenase Protein Total Serum Lactic Acid Dehydrogenase (LDH), Total Body Fluid THYROID STIMULATING HORMONE VITAMIN B12, LEVEL VITAMIN D, 25-OH PROCALCITONIN OCCULT (GUAIAC) BLOOD FERRITIN SERUM IRON PANEL PROTEIN CREAT RATIO URINE RANDOM SODIUM, URINE RANDOM URINE CULTURE UREA NITROGEN, URINE RANDOM TROPONIN I TROPONIN I CBC WITH DIFF BASIC METABOLIC PANEL (NA, K, CL, CO2, GLUCOSE, BUN, CREATININE, CA) N-TERMINAL PRO-BNP URIC ACID URIC ACID Type and Screen - ONCE Routine Lactic Acid Whole Blood Lactic Acid Whole Blood AMYLASE POCT GLUCOSE (AUTOMATED) POCT GLUCOSE (AUTOMATED) CONSULT ADULT PHYSICAL THERAPY Consult [employer] Director-Adult CONSULT CARDIOLOGY CONSULT GASTROENTEROLOGY CONSULT ORTHOPAEDIC SURGERY O2 Per Protocol OTHER RESPIRATORY CARE SERVICES ORDER-SEE COMMENTS ECHO ROUTINE W/DOPPLER COLOR ECHO ROUTINE W/DOPPLER COLOR Orders Placed This Encounter Medications maalox:diphenhydrAMINE:lidocaine 2 % viscous 1:1:1 (FIRST-MOUTHWASH BLM) oral suspension 15 mL morpHINE injection 4 mg iohexol (OMNIPAQUE 350 BULK-100 mL) injection 120 mL ondansetron (ZOFRAN (PF)) injection 4 mg morpHINE injection 4 mg dextrose 50 % in water (D50W) injection 25 mL glucagon (GLUCAGEN DIAGNOSTIC KIT) injection 1 mg Sliding Scale Insulin - Aspart (NOVOLOG) + Fsbg Testing DISCONTD: enoxaparin (LOVENOX) injection 40 mg ondansetron (ZOFRAN (PF)) injection 4 mg docusate (COLACE) capsule 100 mg sennosides (SENOKOT) tablet 8.6 mg furosemide (LASIX) injection 20 mg DISCONTD: clopidogreL (PLAVIX) tablet 75 mg DISCONTD: apixaban (ELIQUIS) tablet 5 mg atorvastatin (LIPITOR) tablet 40 mg aspirin tablet 325 mg metoprolol succinate XL (TOPROL XL) tablet 25 mg levothyroxine (SYNTHROID) tablet 50 mcg lisinopriL (PRINIVIL,ZESTRIL) tablet 2.5 mg tamsulosin (FLOMAX) capsule 0.4 mg DISCONTD: venlafaxine (EFFEXOR) tablet 75 mg glipiZIDE (GLUCOTROL) tablet 5 mg traMADoL (ULTRAM) tablet 50 mg dicyclomine (BENTYL) tablet 20 mg venlafaxine XR (EFFEXOR XR) 24 hr capsule 75 mg Procedures Procedures Notes Patient will be admitted for further medical management. Diagnosis ICD-10-CM ICD-9-CM 1. Abdominal pain in male R10.9 789.00 2. Chest pain in adult R07.9 786.50 3. Acute systolic congestive heart failure I50.21 428.21 428.0 4. Ulcer of foot, limited to breakdown of skin, unspecified laterality L97.501 707.15 5. Pleural effusion J90 511.9 6. Cellulitis of left foot L03.116 682.7 Disposition & Follow Up ED Disposition ED Disposition Condition Comment Admit - Inpatient Stable Is this patient COVID positive or a patient under investigation (PUI)?: No Treatment Team: [facility] [[id number]] Primary reason for admission: Chest pain in adult [[id number]] Is (or was) this a planned re-admission?: No My concerns are:: need for cardiac monitoring My concerns are:: cardiac instability My concerns are:: risk of mortality My concerns are:: risk of morbidity The risks to the patient are: morbidity or mortality in the short term Expected length of stay: 3-4 days Expected discharge disposition: Home Health Certification: I certify the inpatient services are medically necessary and in accordance with Medicare regulations. Current Discharge Medication List STOP taking these medications cadexomer iodine 0.9 % gel Comments: Reason for Stopping: ondansetron (ZOFRAN ODT) 4 mg disintegrating tablet Comments: Reason for Stopping: pantoprazole 20 mg EC tablet Comments: Reason for Stopping: clopidogreL 75 mg tablet Comments: Reason for Stopping: lisinopril 2.5 mg tablet Comments: Reason for Stopping: tamsulosin 0.4 mg 24 hr capsule Comments: Reason for Stopping: apixaban 5 mg tablet Comments: Reason for Stopping: atorvastatin 80 mg tablet Comments: Reason for Stopping: nitroglycerin 0.4 mg sublingual tablet Comments: Reason for Stopping: levothyroxine 50 mcg tablet Comments: Reason for Stopping: venlafaxine 75 mg tablet Comments: Reason for Stopping: MDM Coding Associated attestation - Wayne Can MD - 02/04/2020 8:01 PM CDTOn the date of service, I reviewed the patients history, exam findings, diagnostic and any interventions or procedures in detail of the assigned advance practice provider and was available for consultation. Wayne Can Jr., MD Clinical [employer] [facility] Emergency Department documented in this encounter Miscellaneous Notes Care Plan - Aisha Hi RN - 02/05/2020 11:23 AM CDT Problem: Falls, Risk of Goal: Absence of falls Outcome: Progressing as expected Problem: Infection Risk Goal: Absence of infection Outcome: Progressing as expected Problem: Discharge Planning Goal: Adequate for discharge Outcome: Progressing as expected Problem: Discharge Planning Goal: Adequate for discharge Outcome: Progressing as expected Goal: Effective communication Outcome: Progressing as expected Problem: Pain Goal: Control of pain at or below patient's documented comfort goal Outcome: Progressing as expected Goal: Reduction in pain sensation Outcome: Progressing as expected Problem: Respiratory Function - Impaired Goal: Adequate oxygenation Outcome: Progressing as expected Antonia Nicolas RN - 02/05/2020 6:45 AM CDT Problem: Falls, Risk of Goal: Absence of falls Outcome: Progressing as expected Problem: Infection Risk Goal: Absence of infection Outcome: Progressing as expected Problem: Discharge Planning Goal: Adequate for discharge Outcome: Progressing as expected Goal: Effective communication Outcome: Progressing as expected Problem: Pain Goal: Control of pain at or below patient's documented comfort goal Outcome: Progressing as expected Goal: Reduction in pain sensation Outcome: Progressing as expected Problem: Respiratory Function - Impaired Goal: Adequate oxygenation Outcome: Progressing as expected Antonia Nicolas RN - 02/04/2020 9:10 AM CDT Problem: Falls, Risk of Goal: Absence of falls Outcome: Progressing as expected Problem: Infection Risk Goal: Absence of infection Outcome: Progressing as expected Problem: Discharge Planning Goal: Adequate for discharge Outcome: Progressing as expected Goal: Effective communication Outcome: Progressing as expected Problem: Pain Goal: Control of pain at or below patient's documented comfort goal Outcome: Progressing as expected Goal: Reduction in pain sensation Outcome: Progressing as expected Yelena Beltre RN - 02/04/2020 8:18 AM CDT Problem: Falls, Risk of Goal: Absence of falls Outcome: Progressing as expected Problem: Infection Risk Goal: Absence of infection Outcome: Progressing as expected Problem: Discharge Planning Goal: Adequate for discharge Outcome: Progressing as expected Goal: Effective communication Outcome: Progressing as expected Problem: Pain Goal: Control of pain at or below patient's documented comfort goal Outcome: Progressing as expected Goal: Reduction in pain sensation Outcome: Progressing as expected Problem: Respiratory Function - Impaired Goal: Adequate oxygenation Outcome: Progressing as expected D Nurse Note - Adam Arthur RN - 02/03/2020 9:08 PM CDTNurse Report Report given to SHEBA Peterson. Chief complaint, assessment findings and orders reviewed. Plan of care discussed with nurse. ADAM ARTHUR RN documented in this encounter Plan of Treatment Name Type Priority Associated Diagnoses Date/Ti me URINE CULTURE LAB Routine 02/04/2020 6: 03 PM CDT Name Type Priority Associated Diagnoses Order S chedule OCCULT (GUAIAC) BLOOD LAB Routine ONCE f or 1 Occurrences starting 2019 until 02/04/2020 CBC WITH DIFF LAB Routine EVERY MORNING AT 0500 for 5 Days starting 02/04/2020 until 0, 2 completed BASIC METABOLIC PANEL LAB Routine EVERY MORNING AT 0500 for (NA, K, CL, CO2, 5 Days star ting 02/04/2020 GLUCOSE, BUN, until 02/08/20 20, 2 CREATININE, CA) completed N-TERMINAL PRO-BNP LAB Routine EVERY MOR JARED AT 0500 for 3 Days starting 02/04/2020 until 0, 2 completed POCT GLUCOSE (AUTOMATED) LAB Routine ONC E for 1 Occurrences starting 2019 until 02/04/2020 Health Maintenance Due Date Last Done Comments [...] 05/17/2020 11/16/2019, 08/06/2019, 06/24/2019, Additional history exists CREATININE (SERUM) 02/03/2021 02/04/2020, 02/03/2020, 11/20/2019, Additional history exists LDL-C 02/03/2021 02/04/2020, 08/06/2019, 07/18/2019, Additional history exists PNEUMOCOCCAL 0-64 YEARS COMBINED Completed 02/18/2018 SERIES HEPATITIS C (HCV) SCREEN Completed 08/29/2018 documented as of this encounter Implants 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 PACEMAKER [id number] / Assurity [id number] / Pacemaker Metal Bar-05/22/1994 Back Implanted: 05/22/1994 (Quantity not on file) Metal Bar-05/22/2002 Arm Implanted: 05/22/2002 (Quantity not on file) documented as of this encounter Procedures Procedure Name Priority Date/Time Associated Comments Diagnosis POCT GLUCOSE Routine 02/05/2020 11:54 Results for this (AUTOMATED) AM CDT procedure are i n the results section. POCT GLUCOSE Routine 02/05/2020 10:33 Results for this (AUTOMATED) AM CDT procedure are i n the results section. POCT GLUCOSE Routine 02/05/2020 7:51 Results for this (AUTOMATED) AM CDT procedure are i n the results section. POCT GLUCOSE Routine 02/05/2020 4:10 Results for this (AUTOMATED) AM CDT procedure are i n the results section. N-TERMINAL PRO-BNP Routine 02/05/2020 3:19 Resul ts for this AM CDT procedure are i n the results section. CBC WITH DIFF Routine 02/05/2020 3:19 Results fo r this AM CDT procedure are i n the results section. BASIC METABOLIC PANEL Routine 02/05/2020 3:19 Re sults for this (NA, K, CL, CO2, AM CDT procedure a re in GLUCOSE, BUN, the results CREATININE, CA) section. TROPONIN I Routine 02/05/2020 3:19 Results for this AM CDT procedure are i n the results section. URIC ACID Routine 02/05/2020 3:19 Results for this AM CDT procedure are i n the results section. UREA NITROGEN, URINE Routine 02/04/2020 6:03 Res ults for this RANDOM PM CDT procedure are i n the results section. URINE CULTURE Routine 02/04/2020 6:03 PM CDT PROTEIN CREAT RATIO Routine 02/04/2020 6:02 Resu lts for this URINE RANDOM PM CDT procedure are i n the results section. SODIUM, URINE RANDOM Routine 02/04/2020 6:02 Res ults for this PM CDT procedure are i n the results section. POCT GLUCOSE Routine 02/04/2020 4:36 Results for this (AUTOMATED) PM CDT procedure are i n the results section. ECHO ROUTINE Routine 02/04/2020 2:30 Acute systolic W/DOPPLER COLOR PM CDT congestive heart failure TROPONIN I Routine 02/04/2020 12:36 Results for this PM CDT procedure are i n the results section. POCT GLUCOSE Routine 02/04/2020 7:47 Results for this (AUTOMATED) AM CDT procedure are i n the results section. XR FOOT 3+ VW LEFT STAT 02/04/2020 5:54 Cellulitis of lef t Results for this AM CDT foot procedure are i n the results section. XR CHEST 1 VW Routine 02/04/2020 5:54 Acute systolic Results for this AM CDT congestive heart procedure a re in failure the results section. ABORH CONFIRMATION Routine 02/04/2020 5:00 Resul ts for this AM CDT procedure are i n the results section. POCT GLUCOSE Routine 02/04/2020 2:28 Results for this (AUTOMATED) AM CDT procedure are i n the results section. HB ABO GROUPING Routine 02/04/2020 1:47 Results for this AM CDT procedure are i n the results section. PROCALCITONIN PIERRE 02/04/2020 1:44 Results fo r this AM CDT procedure are i n the results section. VITAMIN D, 25-OH Routine 02/04/2020 1:44 Results for this AM CDT procedure are i n the results section. N-TERMINAL PRO-BNP Routine 02/04/2020 1:44 Resul ts for this AM CDT procedure are i n the results section. CBC WITH DIFF Routine 02/04/2020 1:44 Results fo r this AM CDT procedure are i n the results section. IRON PANEL Routine 02/04/2020 1:44 Results for this AM CDT procedure are i n the results section. LIPID PANEL Add-on 02/04/2020 1:44 Results for this (04864)(TOTAL AM CDT procedure are in CHOLESTEROL, the results TRIGLYCERIDES, HDL) section. BASIC METABOLIC PANEL Routine 02/04/2020 1:44 Re sults for this (NA, K, CL, CO2, AM CDT procedure a re in GLUCOSE, BUN, the results CREATININE, CA) section. TROPONIN I Routine 02/04/2020 1:44 Results for this AM CDT procedure are i n the results section. VITAMIN B12, LEVEL Routine 02/04/2020 1:44 Resul ts for this AM CDT procedure are i n the results section. URIC ACID Routine 02/04/2020 1:44 Results for this AM CDT procedure are i n the results section. LACTATE DEHYDROGENASE Routine 02/04/2020 1:44 Re sults for this AM CDT procedure are i n the results section. LACTIC ACID WHOLE STAT 02/04/2020 1:32 Result s for this BLOOD AM CDT procedure are i n the results section. COVID-19 (ID NOW STAT 02/03/2020 8:18 Abdominal pain in Re sults for this RAPID TESTING) PM CDT male procedure are in the results section. EKG-12 LEAD Routine 02/03/2020 8:14 PM CDT EKG-12 LEAD STAT 02/03/2020 8:[address] ANGIOGRAM STAT 02/03/2020 6:30 Abdominal pain in Result s for this ABDOMEN/PELVIS PM CDT male procedure are in the results section. CT ANGIOGRAM CHEST STAT 02/03/2020 6:30 Abdominal pain in Results for this PM CDT male procedure are i n the results section. URINALYSIS STAT 02/03/2020 5:47 Abdominal pain in Result s for this PM CDT male procedure are i n the results section. N-TERMINAL PRO-BNP STAT 02/03/2020 5:29 Abdominal pain in Results for this PM CDT male procedure are i n the results section. ACTIVATED PARTIAL STAT 02/03/2020 5:29 Abdominal pain in R esults for this THRMPLAS AMARILIS PM CDT male procedure are i n the results section. PROTHROMBIN TIME / STAT 02/03/2020 5:29 Abdominal pain in Results for this INR PM CDT male procedure are i n the results section. CBC WITH DIFF STAT 02/03/2020 5:29 Abdominal pain in Resul ts for this PM CDT male procedure are i n the results section. BASIC METABOLIC PANEL STAT 02/03/2020 5:29 Abdominal pain in Results for this (NA, K, CL, CO2, PM CDT male procedure a re in GLUCOSE, BUN, the results CREATININE, CA) section. HEPATIC FUNCTION STAT 02/03/2020 5:29 Abdominal pain in Re sults for this PANEL (14011) PM CDT male procedure are in (ALB,T.PRO,BILI the results T,BU/BC,ALT,AST,ALK section. PHOS) THYROID STIMULATING Add-on 02/03/2020 5:29 Resu lts for this HORMONE PM CDT procedure are i n the results section. TROPONIN I STAT 02/03/2020 5:29 Abdominal pain in Result s for this PM CDT male procedure are i n the results section. FERRITIN SERUM PIERRE Add-On 02/03/2020 5:29 Results f or this PM CDT procedure are i n the results section. LIPASE STAT 02/03/2020 5:29 Abdominal pain in Result s for this PM CDT male procedure are i n the results section. AMYLASE PIERRE Add-On 02/03/2020 5:29 Results for this PM CDT procedure are i n the results section. URIC ACID PIERRE Add-On 02/03/2020 5:29 Results for this PM CDT procedure are i n the results section. PROTEIN TOTAL PIERRE Add-On 02/03/2020 5:29 Results fo r this PM CDT procedure are i n the results section. GLUCOSE PIERRE Add-On 02/03/2020 5:29 Results for this PM CDT procedure are i n the results section. CONSENT/REFUSAL FOR Routine 02/03/2020 4:40 DIAGNOSIS AND PM CDT TREATMENT documented in this encounter Results POCT GLUCOSE (AUTOMATED) (02/05/2020 11:54 AM CDT) Pathologist Sig nature POCT GLU 173 (H) 70 - 110 mg/dL [facility] Specimen Blood Performing Organization Address City/State/Zipcode Phone Number [facility] CLIA: [id number] [place] [address] POCT GLUCOSE (AUTOMATED) (02/05/2020 10:33 AM CDT) Pathologist Sig nature POCT GLU 127 (H) 70 - 110 mg/dL [facility] Specimen Blood Performing Organization Address [facility] Phone Number [facility] CLIA: [id number] [place] [address] POCT GLUCOSE (AUTOMATED) (02/05/2020 7:51 AM CDT) Pathologist Sig nature POCT GLU 112 (H) 70 - 110 mg/dL [facility] Specimen Blood Performing Organization Address [facility] Phone Number [facility] CLIA: [id number] [place] [address] POCT GLUCOSE (AUTOMATED) (02/05/2020 4:10 AM CDT) Pathologist Sig nature POCT GLU 124 (H) 70 - 110 mg/dL [facility] Specimen Blood Performing Organization Address [facility] Phone Number [facility] CLIA: [id number] [place] [address] URIC ACID (02/05/2020 3:19 AM CDT) Pathologist Sig nature URIC ACID 9.1 (H) 3.6 - 8.0 mg/dL [facility] Specimen Blood - ARM, LEFT Performing Organization Address [facility] Number [facility] CLIA: [id number] [place] [address] N-TERMINAL PRO-BNP (02/05/2020 3:19 AM CDT) Pathologist Sig nature NT-proBNP 1,840 (H) <=125 pg/mL [facility] Specimen Blood - ARM, LEFT Narrative Performed At Biotin has been reported to cause a negative [facility] bias, interpret results relative to patient's use of biotin. Performing Organization Address [facility] Phone Number [facility] CLIA: [id number] [place] [address] BASIC METABOLIC PANEL (NA, K, CL, CO2, GLUCOSE, BUN, CREATININE, CA) (02/05/2020 3:19 AM CDT) Pathologist [facility] nature NA 139 135 - 145 [facility] mmol/L [facility] K 3.5 3.5 - 5.0 [facility] mmol/L [facility] CL 102 98 - 108 mmol/L [facility] CO2 TOTAL 28 23 - 31 mmol/L [facility] AGAP 9 2 - 16 [facility] BUN 20 7 - 23 mg/dL [facility] GLUCOSE 138 (H) 70 - 110 mg/dL [facility] CREATININE 1.16 0.60 - 1.25 [facility] mg/dL [facility] CALCIUM 8.8 8.6 - 10.6 [facility] mg/dL [facility] eGFR Calculation 64.0 mL/min/1.73m2 [facility] ([facility] LABORATORY [place]ian) eGFR Calculation 77.6 mL/min/1.73m2 [facility] () [facility] Specimen Blood - ARM, LEFT Narrative Performed At Association of Glomerular Filtration Rate (GFR) [facility] and Staging of Kidney Disease* [...] tests). Performing Organization Address City/State/Zipcode Phone Number [facility] CLIA: [id number] [place] [address] CBC WITH DIFF (02/05/2020 3:19 AM CDT) [facility] WBC 7.06 4.20 - 10.70 [facility] 10*3/L [facility] RBC 3.02 (L) 4.26 - 5.52 [facility] 10*6/L [facility] HGB 8.7 (L) 12.2 - 16.4 [facility] g/dL [facility] HCT 26.8 (L) 38.4 - 49.3 % [facility] MCV 88.7 81.7 - 95.6 fL [facility] MCH 28.8 26.1 - 32.7 pg [facility] MCHC 32.5 31.2 - 35.0 [facility] g/dL [facility] RDW-SD 43.9 38.5 - 51.6 fL [facility] RDW-CV 13.5 12.1 - 15.4 % [facility] PLT 232 150 - 328 [facility] 10*3/L [facility] MPV 10.9 9.8 - 13.0 fL [facility] NRBC/100 WBC 0.0 0.0 - 10.0 /100 [facility] WBCs [facility] NRBC x10^3 <0.01 10*3/L [facility] GRAN MAT (NEUT) % 63.9 % [facility] IMM GRAN % 0.30 % [facility] LYMPH % 21.1 % [facility] MONO % 10.9 % [facility] EOS % 3.4 % [facility] BASO % 0.4 % [facility] GRAN MAT x10^3(ANC) 4.51 1.99 - 6.95 [facility] 10*3/uL [facility]OSPITAL [facility] IMM GRAN x10^3 <0.03 0.00 - 0.06 [facility] 10*3/uL [facility]ITAL [facility] LYMPH x10^3 1.49 1.09 - 3.23 [facility] 10*3/uL [facility]ITAL [facility] MONO x10^3 0.77 0.36 - 1.02 [facility] 10*3/uL HOSPITAL [facility] EOS x10^3 0.24 0.06 - 0.53 [facility] 10*3/uL [facility]PITAL [facility] BASO x10^3 0.03 0.01 - 0.09 [facility] 10*3/uL [facility] Specimen Blood - ARM, LEFT Performing Organization Address [facility] Phone Number [facility] CLIA: [id number] [place] [address] TROPONIN I (02/05/2020 3:19 AM CDT) Pathologist Sig nature TROPONIN I 0.022 <=0.034 ng/mL [facility] Specimen Blood - ARM, LEFT Narrative Performed At Equal or Less than 0.034 ng/ml---Normal [facility] Note: Cardiac troponin begins to rise 3-4 hours after the onset of ischemia. Repeat in 4-6 hours if the sample was drawn within 3-4 hours of the onset of the symptom and found normal. Between 0.035 and 0.120 ng/mL--- Borderline. Questionable myocardial injury or necros is Note: Serial measurement may be necessary to [...] patient's use of biotin. Performing Organization Address [facility] Phone Number [facility] CLIA: [id number] [place] [address] UREA NITROGEN, URINE RANDOM (02/04/2020 6:03 PM CDT) Pathologist Sig nature UREA N UR 119 mg/dL [facility] Specimen Urine - URINE, CLEAN CATCH Performing Organization Address [facility] Phone Number [facility] CLIA: [id number] [place] [address] [place] [address] SODIUM, URINE RANDOM (02/04/2020 6:02 PM CDT) Pathologist Sig nature NA URINE 130 mmol/L [facility] Specimen Urine - URINE, CLEAN CATCH Performing Organization Address [facility] Phone Number [facility] CLIA: [id number] [place] [address] [address] PROTEIN CREAT RATIO URINE RANDOM (02/04/2020 6:02 PM CDT) Pathologist Sig nature T. PROT U 22 mg/dL [facility] CREAT U 27.1 mg/dL [facility] Protein/Creatinine 0.8 0.0 - 2.0 [facility] Urine [facility] Specimen Urine - URINE, CLEAN CATCH Narrative Performed At Random Urine Total Protein Reference Ran ges [facility] Random Specimen: Less than 10 mg/dL First Morning Specimen: Less than 20 mg/dL Performing Organization Address [facility] Phone Number [facility] CLIA: [id number] [place] [address] POCT GLUCOSE (AUTOMATED) (02/04/2020 4:36 PM CDT) Pathologist Sig [facility] POCT GLU 214 (H) 70 - 110 mg/dL [facility] Specimen Blood Performing Organization Address [facility] Phone Number [facility] CLIA: [id number] [place] [address] TROPONIN I (02/04/2020 12:36 PM CDT) Pathologist Sig [employer] TROPONIN I 0.021 <=0.034 ng/mL [facility] Specimen Blood - ARM, LEFT Narrative Performed At Equal or Less than 0.034 ng/ml---Normal [facility] Note: Cardiac troponin begins to rise 3-4 hours after the onset of ischemia. Repeat in 4-6 hours if the sample was drawn within 3-4 hours of the onset of the symptom and found normal. Between 0.035 and 0.120 ng/mL--- Borderline. Questionable myocardial injury or necros is Note: Serial measurement may be necessary to [...] patient's use of biotin. Performing Organization Address [facility] Phone Number [facility] CLIA: [id number] [place] [id number] LABORATORY [address] POCT GLUCOSE (AUTOMATED) (02/04/2020 12:12 PM CDT) Specimen Blood Performing Organization Address [facility] Phone Number [facility] CLIA: [id number] [place] [address] [address] POCT GLUCOSE (AUTOMATED) (02/04/2020 7:47 AM CDT) Pathologist Sig nature POCT GLU 232 (H) 70 - 110 mg/dL [facility] Specimen Blood Performing Organization Address [facility] Phone Number [facility] CLIA: [id number] [place] [address] LAB[address]ATORY [address] [facility] XR CHEST 1 VW (02/04/2020 5:54 AM CDT) Specimen Narrative Performed At HISTORY: CHF. PACS/VR/DOSE TECHNIQUE: Portable AP view of the chest is obtained. Comparison made with 11/20/2019 study. FINDINGS: No acute pneumonia. Small left pleural effusion noted. No pneumothorax or pulmonary congestion detected. Mild ca rdiomegaly, bipolar permanent pacemaker inserted through left subclavian a nd midline sternotomy sutures from prior open thoracic surgery noted. Note made of calcified granuloma in the left upper lung and met allic stent probably in left subclavian artery. CONCLUSIONS: Mild cardiomegaly and small left pleural effusion. Procedure Note [facility], [facility]iant Results Inft User - 2019 7:55 AM CDT HISTORY: CHF. TECHNIQUE: Portable AP view of the chest is obtained. Comparison made with 11/20/2019 study. FINDINGS: No acute pneumonia. Small left pleural effusion noted. No pneumothorax or pulmonary congestion det ected. Mild cardiomegaly, bipolar permanent pacemaker inserted through lef t subclavian and midline sternotomy sutures from prior open thoracic surgery noted. Note made of calcified granuloma in the left upper lung and met allic stent probably in left subclavian artery. CONCLUSIONS: Mild cardiomegaly and small left pleural effusion. Performing Organization Address [facility] Cent[facility] Phone Number PACS/VR/DOSE XR FOOT 3+ VW LEFT (02/04/2020 5:54 AM CDT) Specimen Narrative Performed At HISTORY: Left heel ulcer and wound. PACS/VR/DOSE FINDINGS: AP, lateral, oblique views of left foot show ed no acute fracture or dislocation. Mild first metatarsophal angeal varus with hallux valgus deformity, mild osteopenia of foot bones , degenerative arthritis of the talonavicular joint and arteriosclerosis noted. Note made of soft tissue ulcer involving heel pad without any inv olvement of the underlying bone. Comparison is made with 08/15/2019 study CONCLUSIONS: No acute fracture or dislocation or signs of osteomyelitis in the left foot bones. Procedure Note [facility], Radiant Results Inft User - 2019 8:08 AM CDT HISTORY: Left heel ulcer and wound. FINDINGS: AP, lateral, oblique views of left foot showed no acute fracture or dislocation. Mild first metatarsophal angeal varus with hallux valgus deformity, mild osteopenia of foot bones , degenerative arthritis of the talonavicular joint and arteriosclerosis noted. Note made of soft tissue ulcer involving heel pad without any inv olvement of the underlying bone. Comparison is made with 08/15/2019 study CONCLUSIONS: No acute fracture or disloc ation or signs of osteomyelitis in the left foot bones. Performing Organization Address City/[facility] Phone Number PACS/VR/DOSE ABORH CONFIRMATION (02/04/2020 5:00 AM CDT) Pathologist Sig nature ABO & RH O Positive LAB Comment: Performed at [facility] Laboratory Services - [facility] Blood Bank [address] [place] [phone] Toll Free: [phone] CLIA No. [id number] Specimen Performing Organization Address [facility] Phone Number BLD LAB POCT GLUCOSE (AUTOMATED) (02/04/2020 2:28 AM CDT) Pathologist Sig sherry POCT GLU 141 (H) 70 - 110 mg/dL [facility] Specimen Blood Performing Organization Address [facility]/Zipcode Phone Number [facility] CLIA: [id number] [place] [address] [place] [address] Type and Screen - ONCE Routine (02/04/2020 1:47 AM CDT) Pathologist Sig nature ABO & RH O Positive LAB Comment: Performed at [facility] Laboratory Services - [facility] Blood Bank [address] [place] [phone] Toll Free: [phone] CLIA No. [id number] IAT Negative LAB Comment: Performed at [facility] Laboratory Services - [facility] Blood Bank [address] [place] [phone] Toll Free: [phone] CLIA No. [id number] Specimen Blood - VENOUS Performing Organization Address [facility] Phone Number BLD LAB LIPID PANEL ([id number])(TOTAL CHOLESTEROL, TRIGLYCERIDES, HDL) (02/04/2020 1:44 AM CDT) Pathologist Sig nature CHOL 187 120 - 200 mg/dL [facility] HDL 32 (L) >40 mg/dL [facility] HDLC RATIO 5.8 (H) <=5.0 [facility] TRIG 164 30 - 170 mg/dL [facility] LDL CHOL 122 <=160 mg/dL [facility] VLDL 33 5 - 60 mg/dL [facility] Specimen Blood - ARM, LEFT Performing Organization Address [facility] Phone Number [facility] CLIA: [id number] [place] [address] [place] [address] URIC ACID (02/04/2020 1:44 AM CDT) Pathologist Sig nature URIC ACID 7.7 3.6 - 8.0 mg/dL [facility] Specimen Blood - ARM, LEFT Performing Organization Address [facility] Phone Number [facility] CLIA: [id number] [place] [address] [place] [address] N-TERMINAL PRO-BNP (02/04/2020 1:44 AM CDT) Pathologist Sig nature NT-proBNP 1,920 (H) <=125 pg/mL [facility] Specimen Blood - ARM, LEFT Narrative Performed At Biotin has been reported to cause a negative [facility] bias, interpret results relative to patient's use of biotin. Performing Organization Address [facility] Phone Number [facility] CLIA: [id number] [place] [address] [place] [address] BASIC METABOLIC PANEL (NA, K, CL, CO2, GLUCOSE, BUN, CREATININE, CA) (02/04/2020 1:44 AM CDT) Pathologist Sig nature NA 140 135 - 145 [facility] mmol/L [facility] K 4.0 3.5 - 5.0 [facility] mmol/L [facility] CL 106 98 - 108 mmol/L [facility] CO2 TOTAL 27 23 - 31 mmol/L [facility] AGAP 7 2 - 16 [facility] BUN 12 7 - 23 mg/dL [facility] GLUCOSE 150 (H) 70 - 110 mg/dL [facility] CREATININE 0.91 0.60 - 1.25 [facility] mg/dL [facility] CALCIUM 9.0 8.6 - 10.6 [facility] mg/dL [facility] eGFR Calculation 84.7 mL/min/1.73m2 [facility] ([facility] LABORATORY Liberian) eGFR Calculation 102.7 mL/min/1.73m2 [facility] () [facility] Specimen Blood - ARM, LEFT Narrative Performed At Association of Glomerular Filtration Rate (GFR) [facility] and Staging of Kidney Disease* [...] tests). Performing Organization Address City/State/Zipcode Phone Number [facility] CLIA: [id number] [place] [address] LABORATORY [address] [facility] CBC WITH DIFF (02/04/2020 1:44 AM CDT) [facility] nature WBC 5.64 4.20 - 10.70 [facility] 10*3/L HOSPITAL LAB[facility]ORY RBC 3.21 (L) 4.26 - 5.52 [facility] 10*6/L HOSPITAL LAB[facility] HGB 9.4 (L) 12.2 - 16.4 [facility] g/dL [facility] HCT 28.7 (L) 38.4 - 49.3 % [facility] MCV 89.4 81.7 - 95.6 fL [facility] MCH 29.3 26.1 - 32.7 pg [facility] MCHC 32.8 31.2 - 35.0 [facility] g/dL [facility] RDW-SD 45.0 38.5 - 51.6 fL [facility] RDW-CV 13.7 12.1 - 15.4 % [facility] PLT 270 150 - 328 [facility] 10*3/L [facility] MPV 9.8 9.8 - 13.0 fL [facility] NRBC/100 WBC 0.0 0.0 - 10.0 /100 [facility] WBCs [facility] LAB[facility] NRBC x10^3 <0.01 10*3/L [facility] GRAN MAT (NEUT) % 50.8 % [facility] IMM GRAN % 0.20 % [facility] LYMPH % 34.0 % [facility] MONO % 9.8 % [facility] EOS % 4.8 % [facility] BASO % 0.4 % [facility] GRAN MAT x10^3(ANC) 2.87 1.99 - 6.95 [facility] 10*3/uL HOSPITAL LABORATORY IMM GRAN x10^3 <0.03 0.00 - 0.06 [facility] 10*3/uL HOSPITAL LABORATORY LYMPH x10^3 1.92 1.09 - 3.23 [facility] 10*3/uL HOSPITAL LABORATORY MONO x10^3 0.55 0.36 - 1.02 [facility] 10*3/uL HOSPITAL LABORATORY EOS x10^3 0.27 0.06 - 0.53 [facility] 10*3/uL HOSPITAL LABORATORY BASO x10^3 <0.03 0.01 - 0.09 [facility] 10*3/uL HOSPITAL LABOR[facility]ORY Specimen Blood - ARM, LEFT Performing Organization Address [facility] Phone Number [facility] CLIA: [id number] [place] [address] [address] TROPONIN I (02/04/2020 1:44 AM CDT) Pathologist Sig nature TROPONIN I 0.039 (H) <=0.034 ng/mL [facility] Specimen Blood - ARM, LEFT Narrative Performed At Equal or Less than 0.034 ng/ml---Normal [facility] Note: Cardiac troponin begins to rise 3-4 hours after the onset of ischemia. Repeat in 4-6 hours if the sample was drawn within 3-4 hours of the onset of the symptom and found normal. Between 0.035 and 0.120 ng/mL--- Borderline. Questionable myocardial injury or necros is Note: Serial measurement may be necessary to [...] patient's use of biotin. Performing Organization Address [facility] Phone Number [facility] CLIA: [id number] [place] [address] IRON PANEL (02/04/2020 1:44 AM CDT) Pathologist Sig nature IRON 38 (L) 50 - 160 ug/dL [facility] TIBC 352 250 - 410 ug/dL [facility] % FE SAT 11 (L) 20 - 50 % [facility] Specimen Blood - ARM, LEFT Performing Organization Address [facility] Phone Number [facility] CLIA: [id number] [place] [address] PROCALCITONIN (02/04/2020 1:44 AM CDT) Pathologist Sig nature Procalcitonin 0.02 <0.07 ng/mL [facility] SERVICES Specimen Blood - ARM, LEFT Narrative Performed At INTERPRETATION OF PROCALCITONIN RESULTS IN ADULTS >= 1 8 [facility] YEARS OF AGE Initiation and discontinuation of antibiotics on patie nts with suspected or confirmed Lower Respiratory Tract Infection in Adults >= 18 years of age. + + + +----- ------ + |Procalcitonin |Interpretation |Antibiotic |Considerations |ng/mL | |recommend ation | + + + +----- ------ + | <0.1 | Bacterial | Strongly | | | infection very | discouraged | Overruling: | | unlikely | | Clinically unstable + + + + H igh risk for adverse | <0.25 | Bacterial | Discouraged | outcome | | infection | | SEE IMPORTANT NOTE | | unlikely | | + + + +----- ------ + | >=0.25 | Bacterial | Encouraged | | | infection | | | | likely | | Consider treatment failure + + + + if l evels does not decrease | >0.5 | Bacterial | Strongly | appropriately | | infection very | encouraged | | | likely | | + + + +----- ------ + Discontinuation of antibiotics in high-acuity patients with suspected or confirmed sepsis in Adults >= 18 years of age. + + + +----- ------ + |Procalcitonin |Interpretation |Antibiotic |Considerations |ng/mL | |recommend ation | + + + +----- ------ + | <0.25 | Bacterial | Strongly | | | infection very | discouraged | Overruling: | | unlikely | | Clinically unstable + + + + H igh risk for adverse | <0.5 or drop | Bacterial | Discouraged | outcome | >80% from | infection | | SEE IMPORTANT NOTE | highest PCT | unlikely | | | level | | | + + + +----- ------ + | >=0.5 | Bacterial | Encouraged | | | infection | | | | likely | | Consider treatment failure + + + + if l evels does not decrease | >1.0 | Bacterial | Strongly | appropriately | | infection very | encouraged | | | likely | | + + + +----- ------ + Percentage of drop of Procalcitonin calculation for Discontinuation of antibiotics in high-acuity patients with suspected or confirmed sepsis in Adults >= 18 years of age. Procalcitonin highest{}-Procalcitonin current{} Delta Procalcitonin = x100% Procalcitonin current {} IMPORTANT NOTE: Procalcitonin may be elevated without bacterial infection by physiologic stress related to t rauma, lombardo, chronic dialysis, metastatic cancer, surgery in the past seven days, malaria, some fungal infections, and some forms of vasculitis. The interpretation algorithm may not apply to patients with immunosuppression (equivalent o f >10 mg of prednisone daily), HIV with CD4 cell count < 350 cells/mm3, active malignancy on systemic chemotherapy, solid organ transplant or hematopoietic stem cell transplant ation, or hospital acquired pneumonia. Additionally, some cli nical trials of procalcitonin have excluded patients with sh ock requiring vasopressor use, acute respiratory failure requiring mechanical ventilation, or those with known lung abscess/empyema. For further information please refer to: [email or web address] Performing Organization Address City/State/Zipcode Phone Number [facility] CLIA: [id number] [place] [address] [place] [address] VITAMIN D, 25-OH (02/04/2020 1:44 AM CDT) Pathologist Sig nature VIT D 25OH 20 (L) 25 - 80 ng/mL [facility] Specimen Blood - ARM, LEFT Narrative Performed At Deficiency: <20 ng/mL [facility] Insufficiency: 20-24 ng/mL Optimal: 25-80 ng/mL Performing Organization Address City/[facility] Cent[facility] Phone Number [facility] CLIA: [id number] [place] [address] [place] [address] VITAMIN B12, LEVEL (02/04/2020 1:44 AM CDT) Pathologist Sig nature VIT B12 428 240 - 930 pg/mL [facility] Specimen Blood - ARM, LEFT Narrative Performed At Biotin has been reported to cause a positive bias, int erpret [facility] results relative to patient's use of biotin. Performing Organization Address City/[facility] Phone Number [facility] CLIA: [id number] [place] [address] [place] [address] Lactate Dehydrogenase (02/04/2020 1:44 AM CDT) Pathologist Sig nature LDH 590 300 - 600 U/L [facility] Specimen Blood - ARM, LEFT Performing Organization Address [facility] Phone Number [facility] CLIA: [id number] [place] [address] Lactic Acid Whole Blood (02/04/2020 1:32 AM CDT) Pathologist Sig nature LACTIC ACID 1.60 mmol/L [facility] Specimen Blood - ARM, LEFT Performing Organization Address [facility] Phone Number [facility] CLIA: [id number] [place] [address] [place] [address] Drive COVID-19 (ID NOW RAPID TESTING) (02/03/2020 8:18 PM CDT) SARS-CoV-2 Rapid ID Not Detected Not Detected [facility] Specimen Swab - NASOPHARYNGEAL SWAB Narrative Performed At ID NOW COVID-19 Assay is an isothermal nucleic [facility] acid amplification test intended for the qualitative detection of nucleic acid from SARS-CoV-2 viral RNA in nasopharyngeal (SULFONATOR OPERATOR) specimens. It is used under Emergency Use Authorization (EUA) by FDA. The limit of detection (LOD) of the assay is 125 Genome Equivalents/mL. A positive result is indicative of the presence of SARS-CoV-2 RNA. Clinical correlation with patient history and other diagnostic information is necessary to determine patient infection status. A negative (Not Detected) result does not preclude SARS-CoV-2 infection. In patients with clinical symptoms and other tests that are consistent with SARS-CoV-2 infection, negative results should be treated as presumptive negative and a new specimen should be tested with alternative PCR molecular test. Invalid: Please collect a new specimen for repeat patient testing if clinically indicated. Performing Organization Address City/State/Zipcode Phone Number [facility] CLIA: [id number] [place] [address] [address] ANGIOGRAM ABDOMEN/PELVIS (02/03/2020 6:30 PM CDT) Specimen Impressions Performed At Impression: PACS/VR/DOSE 1. Atherosclerotic disease, with no aneurysm or dissec tion of the abdominal aorta. No hemodynamically significant st enoses of the major arterial branches. 2. 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 3. Cholecystectomy. 4. A right adrenal low-attenuation lesio n cannot be fully characterized, but may reflect a hyperdense cyst. 5. Prostatic enlargement. RL: 460 End of Report 20 7:41 PM Narrative Performed At Ordering Physician: GILMER HARRIS PACS/VR/DOSE Clinical history: Follow-up known abdomi nal aortic aneurysm Comparison: None Technique: CT angiography of the chest w as performed without and with intravenous contrast. Axial source image s, MPRS, and MIPS were reviewed. This examination was performed according to ALARA principles. Findings: There is again noted to be atherosclerotic calcificati on of the abdominal aorta and its branches. No aneurysm or dissection is a pparent. The celiac and superior mesenteric arteries are aga in noted to arise from a common trunk. No significant stenoses of these arteries are apparent. No significant renal artery stenosis is apparent. There i s again noted to be early opacification of the right common femoral vein, likely reflecting arteriovenous fistula. The patient is status post cholecystecto my. The liver, spleen, pancreas, and adrenal glands are unremarkable. A low-attenuation cortical lesion of the right kidney measures slightly great er than water attenuation. This cannot be fully characterized, although it is likely a cyst hyperdense cyst. The prostate gland is mildly enlarged. Mild prom inence of the urinary bladder wall is likely due to incomplete distention. A previously noted metallic foreign body within the si gmoid colon, likely endoscopic hemostasis clip, is no longer apparent. The re is no evidence of colitis or diverticulitis. A normal appe ndix is identified. There is no bowel obstruction. There is no free intr aperitoneal fluid or free intraperitoneal air. Degenerative and postoperative ch anges of the lumbar spine are again noted. No acute bony abn ormalities are evident. Procedure Note [facility], Radiant Results Inft User - 2019 7:42 PM CDT Ordering Physician: GILMER HARRIS Clinical history: Follow-up known abdomi nal aortic aneurysm Comparison: None Technique: CT angiography of the chest w as performed without and with intravenous contrast. Axial source image s, MPRS, and MIPS were reviewed. This examination was performed according to ALARA principles. Findings: There is again noted to be atherosclerot ic calcification of the abdominal aorta and its branches. No aneurysm or d issection is apparent. The celiac and superior mesenteric arteries are aga in noted to arise from a common trunk. No significant stenoses of these arteries are apparent. No significant renal artery stenosis is ronald arent. There is again noted to be early opacification of the right common femoral vein, likely reflecting arteriovenous fistula. The patient is status post cholecystecto my. The liver, spleen, pancreas, and adrenal glands are unremarkable. A l ow-attenuation cortical lesion of the right kidney measures slightly great er than water attenuation. This cannot be fully characterized, although it is likely a cyst hyperdense cyst. The prostate gland is mildly enlar ged. Mild prominence of the urinary bladder wall is likely due to incomplete distention. A previously noted metallic foreign body within the sigmoid colon, likely endoscopic hemostasis clip, is no longer apparent. There is no evidence of colitis or diverticulitis. A normal appe ndix is identified. There is no bowel obstruction. There is no free intr aperitoneal fluid or free intraperitoneal air. Degenerative and po stoperative changes of the lumbar spine are again noted. No acute bony abn ormalities are evident. IMPRESSION Impression: 1. Atherosclerotic disease, with no aneu rysm or dissection of the abdominal aorta. No hemodynamically significant st enoses of the major arterial branches. 2. 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 3. Cholecystectomy. 4. A right adrenal low-attenuation lesio n cannot be fully characterized, but may reflect a hyperdense cyst. 5. Prostatic enlargement. RL: 460 End of Report Performing Organization Address City/State/Zipcode Phone Number PACS/VR/DOSE CT ANGIOGRAM CHEST (02/03/2020 6:30 PM CDT) Specimen Impressions Performed At Impression: PACS/VR/DOSE 1. No prior studies for comparison. 2. Atherosclerosis, including atherosclerotic coronary artery disease. The patient is status post pacemaker placeme nt. 3. No evidence of thoracic aortic aneury sm or dissection. 4. Patent stent within the left subclavi an artery. 5. Large bilateral pleural effusions, with scattered a reas of subsegmental atelectasis. 6. Please see separate report for CTA of the abdomen. 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 Comparison: None available Technique: CT angiography of the chest w as performed with intravenous contrast. Axial source images, MPRS, and MIPS were reviewed. This examination was performed according to A ANKUR principles. Findings: The patient is status post median sterno rylie and left transvenous asymmetric replacement. There is atheros clerotic calcification of the thoracic aorta and its branches, including the coronar y arteries. There is a patent stent within the proximal left subclavian artery. There is no thoracic aortic aneurysm or dissection. Precontrast im ages demonstrate no evidence of intramural hematoma. Heart s ize is normal. No pericardial effusion is evident. No filling defects are seen within the pulmonary arterial tree to suggest pulmonary embol us. There are large bilateral pleural effusi ons. Scattered areas of subsegmental atelectasis are seen within both lungs. No intrathoracic lymphadenopathy is apparent. No acute bony abnormaliti es of the thorax are apparent. Degenerative changes of the spine are noted. Abdominal findings are described in a separate report for C T of the abdomen. 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 Follow-up. Comparison: None available Technique: CT angiography of the chest w as performed with intravenous contrast. Axial source images, MPRS, and MIPS were reviewed. This examination was performed according to A ANKUR principles. Findings: The patient is status post median sterno rylie and left transvenous asymmetric replacement. There is atheros clerotic calcification of the thoracic aorta and its branches, includi ng the coronary arteries. There is a patent stent within the proximal left subclavian artery. There is no thoracic aortic aneurysm or dissection. Precontrast images demonstrate no evidence of intramural hematoma. Heart s ize is normal. No pericardial effusion is evident. No filling defects are seen within the pulmonary arterial tree to suggest pulmonary embol us. There are large bilateral pleural effusi ons. Scattered areas of subsegmental atelectasis are seen within both lungs. No intrathoracic lymphadenopathy is apparent. No acute afia ny abnormalities of the thorax are apparent. Degenerative changes of the sp ine are noted. Abdominal findings are described in a separate report for C T of the abdomen. IMPRESSION Impression: 1. No prior studies for comparison. 2. Atherosclerosis, including atheroscle rotic coronary artery disease. The patient is status post pacemaker placeme nt. 3. No evidence of thoracic aortic aneury sm or dissection. 4. Patent stent within the left subclavi an artery. 5. Large bilateral pleural effusions, wi th scattered areas of subsegmental atelectasis. 6. Please see separate report for CTA of the abdomen. RL: 460 End of Report Performing Organization Address City/State/Zipcode Phone Number PACS/VR/DOSE Urinalysis (02/03/2020 5:47 PM CDT) Pathologist Sig nature APPEARANCE Clear Clear [facility] COLOR Yellow Yellow [facility] PH 6.0 4.8 - 8.0 [facility] SP GRAVITY 1.013 1.003 - 1.030 [facility] GLU U QUAL 150 mg/dL (A) Normal [facility] BLOOD 1+ (A) Negative [facility] KETONES Negative Negative [facility] [facility] PROTEIN 100 mg/dL (A) Negative [facility] UROBILIN Normal Normal [facility] BILIRUBIN Negative Negative [facility] NITRITE Negative Negative [facility] LEUK PETER Negative Negative [facility] RBC/HPF 3 0 - 3 HPF [facility] WBC/HPF 1 0 - 5 HPF [facility] BACTERIA Negative Negative [facility] MUCOUS Slight (A) Negative LPF [facility] Specimen Urine - URINE, CLEAN CATCH Performing Organization Address [facility] Number [facility] CLIA: [id number] [place], [place] [address] LABORATORY [address] AMYLASE (02/03/2020 5:29 PM CDT) Pathologist Sig nature SERGIO 110 35 - 110 U/L [facility] Specimen Blood - VENOUS Performing Organization Address [facility] Number [facility] CLIA: [id number] [place], [place] [id number] LABORATORY [address] URIC ACID (02/03/2020 5:29 PM CDT) Pathologist Sig nature URIC ACID 7.5 3.6 - 8.0 mg/dL [facility] Specimen Blood - VENOUS Performing Organization Address [facility] Phone Number [facility] CLIA: [id number] [place] [address] FERRITIN SERUM (02/03/2020 5:29 PM CDT) Pathologist Sig nature FERRITIN 20.4 18.0 - 464.0 ng/mL [facility] Specimen Blood - VENOUS Narrative Performed At Biotin has been reported to cause a negative [facility] bias, interpret results relative to patient's use of biotin. Performing Organization Address [facility]/Zipcode Phone Number [facility] CLIA: [id number] [place] [address] THYROID STIMULATING HORMONE (02/03/2020 5:29 PM CDT) Pathologist Sig nature TSH 3.40 0.45 - 4.70 mIU/L [facility] Specimen Blood - VENOUS Performing Organization Address [facility] Phone Number [facility] CLIA: [id number] [place] [address] Protein Total Serum (02/03/2020 5:29 PM CDT) Pathologist Sig [facility] T PROTEIN 7.0 6.3 - 8.2 g/dL [facility] Specimen Blood - VENOUS Performing Organization Address [facility] Phone Number [facility] CLIA: [id number] [place], [place] [address] LABORATORY [address] Glucose, Level (02/03/2020 5:29 PM CDT) Pathologist Sig nature GLUCOSE 220 (H) 70 - 110 mg/dL [facility] Specimen Blood - VENOUS Performing Organization Address [facility] Phone Number [facility] CLIA: [id number] [place] [address] N-TERMINAL PRO-BNP (02/03/2020 5:29 PM CDT) Pathologist Sig nature NT-proBNP 2,300 (H) <=125 pg/mL [facility] Specimen Blood - VENOUS Narrative Performed At [facility] has been reported to cause a negative [facility] bias, interpret results relative to patient's use of biotin. Performing Organization Address [facility] Phone Number [facility] CLIA: [id number] [place] [address] Prothrombin Time (PT) / INR (02/03/2020 5:29 PM CDT) PROTIME PATIENT 14.9 (H) 12.0 - 14.7 [facility] LABORATORY INR 1.2Comment: Normal [facility] INR <1.1; Warfarin [facility] Therapeutic range LABORATORY 2.0 to 3.0 or 2.5 to 3.5, depending upon the indications. Specimen Blood - VENOUS Performing Organization Address [facility] Phone Number [facility] CLIA: [id number] [place] [address] aPTT (02/03/2020 5:29 PM CDT) Pathologist Sig nature APTT Patient 29 23 - 38 Seconds [facility] Specimen Blood - VENOUS Narrative Performed At The [facility] patient population mean normal value [facility] for aPTT is 30 seconds. Performing Organization Address [facility] Phone Number [facility] CLIA: [id number] [place] [address] Troponin I (02/03/2020 5:29 PM CDT) Pathologist Sig nature TROPONIN I 0.034 <=0.034 ng/mL [facility] Specimen Blood - VENOUS Narrative Performed At Equal or Less than 0.034 ng/ml---Normal [facility] Note: Cardiac troponin begins to rise 3-4 hours after the onset of ischemia. Repeat in 4-6 hours if the sample was drawn within 3-4 hours of the onset of the symptom and found normal. Between 0.035 and 0.120 ng/mL--- Borderline. Questionable myocardial injury or necros is Note: Serial measurement may be necessary to [...] patient's use of biotin. Performing Organization Address [facility] Phone Number [facility] CLIA: [id number] [place] [address] Lipase Serum (02/03/2020 5:29 PM CDT) Pathologist Sig nature LIPASE 180 0 - 220 U/L [facility] Specimen Blood - VENOUS Performing Organization Address [facility] Phone Number [facility] CLIA: [id number] [place] [address] LABORATORY [address] [facility] Hepatic Function Panel (ALB, T.PRO, BILI T, BU/BC, ALT, AST, ALK PHOS) (02/03/2020 5:29 PM CDT) Pathologist Sig nature TOTAL BILI 0.4 0.1 - 1.1 mg/dL [facility] BILI UNCON 0.5 0.1 - 1.1 mg/dL [facility] BILI CONJ 0.0 0.0 - 0.3 mg/dL [facility] T PROTEIN 7.4 6.3 - 8.2 g/dL [facility] ALBUMIN 3.9 3.5 - 5.0 g/dL [facility] ALK PHOS 127 (H) 34 - 122 U/L [facility] ALTv 15 5 - 50 U/L [facility] AST(SGOT) 23 13 - 40 U/L [facility] Specimen Blood - VENOUS Performing Organization Address [facility] Phone Number [facility] CLIA: [id number] [place] [address] [place] [address] Basic Metabolic Panel (NA, K, CL, CO2, GLUCOSE, BUN, CREATININE, CA) (02/03/2020 5:29 PM CDT) Pathologist Sig nature NA 139 135 - 145 [facility] mmol/L [facility] LABORATORY K 3.8 3.5 - 5.0 [facility] mmol/L [facility] LABORATORY CL 105 98 - 108 mmol/L [facility] CO2 TOTAL 23 23 - 31 mmol/L [facility] AGAP 11 2 - 16 [facility] BUN 13 7 - 23 mg/dL [facility] GLUCOSE 223 (H) 70 - 110 mg/dL [facility] CREATININE 0.95 0.60 - 1.25 [facility] mg/dL [facility] LABORATORY CALCIUM 9.1 8.6 - 10.6 [facility] mg/dL [facility] LABORATORY eGFR Calculation 80.6 mL/min/1.73m2 [facility] ([facility] [place]) eGFR Calculation 97.7 mL/min/1.73m2 [facility] [place] [facility]) [facility] LABORATORY Specimen Blood - VENOUS Narrative Performed At Association of Glomerular Filtration Rate (GFR) [place] [facility] and Staging of Kidney Disease* [...] tests). Performing Organization Address City/State/Zipcode Phone Number [facility] CLIA: [id number] [place], [place] [id number] LABORATORY [address] CBC with Differential (02/03/2020 5:29 PM CDT) [facility] WBC 6.92 4.20 - 10.70 [facility] 10*3/L [facility] LABORATORY RBC 3.09 (L) 4.26 - 5.52 [facility] 10*6/L [facility] LABORATORY HGB 9.0 (L) 12.2 - 16.4 [facility] g/dL [facility] LABORATORY HCT 27.2 (L) 38.4 - 49.3 % [facility] MCV 88.0 81.7 - 95.6 fL [facility] MCH 29.1 26.1 - 32.7 pg [facility] MCHC 33.1 31.2 - 35.0 [facility] g/dL [facility] LABORATORY RDW-SD 43.7 38.5 - 51.6 fL [facility] RDW-CV 13.7 12.1 - 15.4 % [facility] PLT 276 150 - 328 [facility] 10*3/L HOSPITAL LABORATORY MPV 9.7 (L) 9.8 - 13.0 fL [facility] NRBC/100 WBC 0.0 0.0 - 10.0 /100 [facility] WBCs [facility] LABORATORY NRBC x10^3 <0.01 10*3/L [facility] GRAN MAT (NEUT) % 55.9 % [facility] IMM GRAN % 0.40 % [facility] LYMPH % 27.9 % [facility] MONO % 11.4 % [facility] EOS % 4.0 % [facility] BASO % 0.4 % [facility] GRAN MAT x10^3(ANC) 3.86 1.99 - 6.95 [facility] 10*3/uL [facility] LABORATORY IMM GRAN x10^3 0.03 0.00 - 0.06 [facility] 10*3/uL [facility] LABORATORY LYMPH x10^3 1.93 1.09 - 3.23 [facility] 10*3/uL [facility] LABORATORY MONO x10^3 0.79 0.36 - 1.02 [facility] 10*3/uL [facility] LABORATORY EOS x10^3 0.28 0.06 - 0.53 [facility] 10*3/uL [facility] LABORATORY BASO x10^3 0.03 0.01 - 0.09 [facility] 10*3/uL [facility] LABORATORY Specimen Blood - VENOUS Performing Organization Address City/State/Zipcode Phone Number [facility] CLIA: [id number] [place] [address] documented in this encounter Visit Diagnoses Diagnosis Abdominal pain - Primary Abdominal pain, unspecified site Abdominal pain in male Chest pain, unspecified type Acute systolic congestive heart failure Acute systolic heart failure Ulcer of foot, limited to breakdown of s kin, unspecified laterality Pleural effusion Unspecified pleural effusion Cellulitis of left foot Cellulitis and abscess of foot, except t oes Paroxysmal atrial fibrillation Atrial fibrillation NSTEMI (non-ST elevated myocardial infar ction) Acute myocardial infarction, subendocard ial infarction, episode of care unspecified Unstable angina pectoris Intermediate coronary syndrome 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, acquired Essential hypertension Unspecified essential hypertension Other hyperlipidemia Pacemaker Cardiac pacemaker in situ PAF (paroxysmal atrial fibrillation) Atrial fibrillation Type 2 diabetes mellitus without complic ation, without long-term current use of insulin Elevated brain natriuretic peptide (BNP) level Other nonspecific findings on examinatio n of blood Troponin I above reference range Other abnormal blood chemistry documented in this encounter Administered Medications Medication Order MAR Action Action Date Dose Rate Site aspirin chewable tablet 81 mg Given 02/05/2020 8:29 AM CDT 81 mg 81 mg, Oral, DAILY, First dose on Mon02/05/20 at 0900, Until Discontinued, Routine atorvastatin (LIPITOR) tablet 40 mg Given 02/04/2020 8:25 PM CDT 40 mg 40 mg, Oral, QHS, First dose on Mon02/04/20 at 2100, Until Discontinued, Routine dextrose 50 % in water (D50W) injection 25 mL 25 mL, Slow IV Push, PRN, Starting Mon at 0042, Until Discontinued, PIERRE, Blood Glucose < or = 70 mg/dL and patien t is unable to swallow or has mental status changes. dicyclomine (BENTYL) tablet 20 mg Given 02/05/2020 2:51 PM CDT 20 mg 20 mg, Oral, TID, 9 doses, First dose on Mon02/04/20 at 0100, Last dose on Mon02/06/20 at 1400, Routine Given 02/05/2020 8:28 AM CDT 20 mg Given 02/04/2020 8:25 PM CDT 20 mg docusate (COLACE) capsule 100 mg Given 02/05/2020 8:28 AM CDT 100 mg 100 mg, Oral, BID, First dose on Mon02/04/20 at 0045, Until Discontinued, Routine Given 02/04/2020 8:26 PM CDT 100 mg Given 02/04/2020 8:17 AM CDT 100 mg enoxaparin (LOVENOX) injection 80 mg Given 02/04/2020 11:29 PM CDT 80 mg Abdo men-SC 80 mg, Subcutaneous, Q12H, First dose on Mon02/04/20 at 1115, Until Discontinued, Routine Given 02/04/2020 12:32 PM CDT 80 mg Abdo men-SC furosemide (LASIX) injection 20 mg Given 02/05/2020 6:16 PM CDT 20 mg 20 mg, IV Push, Q6H, First dose (after last modification) on Mon02/05/20 at 1200, Until Discontinued, PIERRE Given 02/05/2020 12:26 PM CDT 20 mg glipiZIDE (GLUCOTROL) tablet 5 mg Given 02/05/2020 8:28 AM CDT 5 mg 5 mg, Oral, BIDAC, First dose on Mon02/04/20 at 0100, Until Discontinued, Routine Given 02/04/2020 5:24 PM CDT 5 mg Given 02/04/2020 8:17 AM CDT 5 mg glucagon (GLUCAGEN DIAGNOSTIC KIT) injec tion 1 mg 1 mg, Intramuscular, PRN, Starting Mon at 0042, Until Discontinued, PIERRE, Blood Glucose < or = 70 mg/dL and patient is unable to swallow or has mental changes. KCL (KLOR-CON M20) tablet 40 mEq Given 02/05/2020 10:47 AM CDT 40 mEq 40 mEq, Oral, DAILY, First dose on Mon02/05/20 at 0900, Until Discontinued, Routine levothyroxine (SYNTHROID) tablet 50 mcg Given 02/05/2020 5:18 AM CDT 50 mcg 50 mcg, Oral, QAM-0600, First dose on Mon02/04/20 at 0600, Until Discontinued, Routine lisinopriL (PRINIVIL,ZESTRIL) tablet 2.5 mg 2.5 mg, Oral, DAILY, First dose on Mon at 0900, Until Discontinued, Routine metoprolol succinate XL (TOPROL XL) tablet 25 Given 1:27 AM CDT 25 mg mg 25 mg, Oral, BID, First dose on Mon02/04/20 at 0100, Until Discontinued, Routine morpHINE injection 4 mg Given 02/05/2020 12:28 PM CDT 4 mg 4 mg, Slow IV Push, Q4HPRN, Starting Mon02/04/20 at 1232, Until Discontinued, STAT, Pain (scale 7-10) Given 02/05/2020 8:29 AM CDT 4 mg Given 02/04/2020 5:57 PM CDT 4 mg mupirocin (BACTROBAN OINT) 2 % skin oint ment Given 02/05/2020 12:28 PM CDT Given 02/04/2020 8:46 PM CDT Given by Provider 02/04/2020 1:00 PM CDT ondansetron (ZOFRAN (PF)) injection 4 mg Given 02/05/2020 10:50 AM CDT 4 mg 4 mg, Slow IV Push, Q6HPRN, Starting Mon02/04/20 at 0044, Until Discontinued, Routine, Nausea and Vomiting (N/V) Given 02/04/2020 2:24 PM CDT 4 mg Given 02/04/2020 8:17 AM CDT 4 mg sennosides (SENOKOT) tablet 8.6 mg Given 02/05/2020 8:28 AM CDT 8.6 mg 8.6 mg, Oral, BID, First dose on Mon02/04/20 at 0045, Until Discontinued, Routine Given 02/04/2020 8:17 AM CDT 8.6 mg Given 02/04/2020 1:27 AM CDT 8.6 mg Sliding Scale Insulin - Aspart Given 02/04/2020 8:28 PM 2 Units Right Upper (NOVOLOG) + Fsbg Testing CDT Arm-SC Subcutaneous, TID MEALS+HS, First dose on Mon02/04/20 at 0045, Until Discontinued, Routine Given 02/04/2020 5:24 PM CDT 2 Units Left Upper Arm-SC Given 02/04/2020 12:32 PM CDT 2 Units Abdo men-SC tamsulosin (FLOMAX) capsule 0.4 mg Given 02/05/2020 8:29 AM CDT 0.4 mg 0.4 mg, Oral, DAILY, First dose on Mon02/04/20 at 0900, Until Discontinued, Routine Given 02/04/2020 8:17 AM CDT 0.4 mg traMADoL (ULTRAM) tablet 50 mg Given 02/04/2020 8:26 PM CDT 50 mg 50 mg, Oral, Q8HPRN, Starting Mon02/04/20 at 0049, Until Discontinued, Routine, Pain (scale 4-6) Given 02/04/2020 4:19 AM CDT 50 mg venlafaxine XR (EFFEXOR XR) 24 hr capsule 75 Given 8:28 AM CDT 75 mg mg 75 mg, Oral, BID, First dose on Mon02/04/20 at 0215, Until Discontinued, Routine Given 02/04/2020 8:26 PM CDT 75 mg Given 02/04/2020 8:17 AM CDT 75 mg Medication Order MAR Action Action Date Dose Rate Site aspirin tablet 325 mg Given 02/04/2020 1:26 AM CDT 325 mg 325 mg, Oral, ONCE, 1 dose, Mon02/04/20 at 0200, PIERRE furosemide (LASIX) injection 20 mg Given 02/04/2020 5:24 PM CDT 20 mg 20 mg, IV Push, Q6H, First dose on Mon02/04/20 at 0100, Until Discontinued, PIERRE Given 02/04/2020 12:32 PM CDT 20 mg Given 02/04/2020 7:35 AM CDT 20 mg iohexol (OMNIPAQUE 350 BULK-100 mL) Given 02/03/2020 6:19 PM CD T 120 mL injection 120 mL 120 mL, Intravenous, ONCE, 1 dose, Mon02/03/20 at 1845, Routine maalox:diphenhydrAMINE:lidocaine 2 % viscous Given 5:41 PM CDT 15 mL 1:1:1 (FIRST-MOUTHWASH BLM) oral suspension 15 mL 15 mL, Oral, ONCE, 1 dose, Mon02/03/20 at 1745, PIERRE magnesium citrate solution 296 mL Given 02/05/2020 12:26 PM CDT 296 mL 296 mL, Oral, ONCE, 1 dose, Mon02/05/20 at 1300, Routine morpHINE injection 4 mg Given 02/03/2020 6:33 PM CDT 4 mg 4 mg, Slow IV Push, ONCE, 1 dose, Mon02/03/20 at 1930, STAT morpHINE injection 4 mg Given 02/03/2020 7:41 PM CDT 4 mg 4 mg, Slow IV Push, ONCE, 1 dose, Mon02/03/20 at 2030, STAT ondansetron (ZOFRAN (PF)) injection 4 mg Given 02/03/2020 6:36 PM CDT 4 mg 4 mg, Slow IV Push, ONCE, 1 dose, Mon02/03/20 at 1930, PIERRE sulfur hexafluoride microsphr (LUMASON) Given 02/04/2020 3:12 P M CDT 5 mL injection 5 mL 5 mL, Intravenous, ONCE, 1 dose, 02/04/20 at 1630, Routine, service member approving Restricted medication: TERRI CASTILLO documented in this encounter Additional Health Concerns Infection Onset Date Last Indicated Resolved Time Contact- MRSA 08/18/2019 08/18/2019 COVID-19 Rule Out 02/03/2020 02/03/2020 02/03/2020 9: 30 PM CDT documented as of this encounter Insurance Payer Benefit Plan / Subscriber ID Effective Dates Phone Addre ss Type Group [employer] [id number] 2018-Present Medicare Adv spring HMO documented as of this encounter Advance Directives Name Relationship Healthcare Agent Communication Relationship Rose Desouza Mother Health Care Agent
[2020-03-09 16:58] LABS: Absolute Lymphocytes (CBC) 1.9 K/uL (0.7-4.9); Basophils % 0.4 % (0-1.3); Hematocrit 32.1 % (39.6-49.0); Lymphocytes % 16.5 % (15.3-44.8); MPV 8.2 fL (7.6-11.3); RBC Red Blood Cell Count 3.82 M/uL (4.33-5.43)
[2020-03-09] MEDS ORDERED: MORPHINE 4 MG/ML SYR ONE (17:07)
[2020-03-09] MEDS ORDERED: ONDANSETRON 4 MG/2 ML VIAL ONE (17:07)
--- NOTE | 2020-03-09 17:21 | RAD REPORT ---
EXAM DESCRIPTION: RAD - Foot Left 3 View - 03/09/2020 4:58 pm CLINICAL HISTORY: PAIN, chronic foot pain, calcaneus chronic wound COMPARISON: No comparisons FINDINGS: No fracture, dislocation or periosteal reaction. No acute or destructive bone process. Tiana ntar calcaneus region wound shows no calcification. There is a focal air density present in the soft tissues on the lateral view. This may be within the soft tissues or along the medial or lateral skin surface. Minimal spurring at the Achilles attachment. There is moderate spurring at the talus navicul ar articulation. No foreign body in the soft tissues. Degenerative change present at the first MTP joint, mild for ag e. IMPRESSION: Posterior plantar wound shows a small focus of air that may be within the soft tissues o r could be along the medial or lateral skin surface. No evidence for osteomyelitis.
--- NOTE | 2020-03-09 17:42 | ER ---
Nurse's Notes [facility] Name: Ernie Rooney Age: 59 yrs Sex: Male : 1960 Arrival Date: 03/09/2020 Time: 16:20 Bed 13 Private MD: Diagnosis: Hyperglycemia, unspecified;Pain in right foot;Other chronic pain Presentation: 03/09 16:20 Chief complaint: Patient states: Left foot pain worse than usual since Monday. Denies ll1 trauma/falls. Has chronic wound on that foot for 8 months. Wound care nurse has been visiting him at home for the past month for wound care. Coronavirus screen: Client denies travel out of the [place] in the last 14 days. At this time, the client does not indicate any symptoms associated with coronavirus-19. Ebola Screen: Patient denies travel to an Ebola-affected area in the 21 days before illness onset. Initial Sepsis Screen: Does the patient meet any 2 criteria? HR > 90 bpm. No. Patient's initial sepsis screen is negative. Does the patient have a suspected source of infection? Yes: Bone or joint infection. Risk Assessment: Do you want to hurt yourself or someone else? Patient reports no desire to harm self or others. Onset of symptoms was March 05, 2020. 16:20 Method Of Arrival: EMS ll1 16:20 Acuity: TONE 4 ll1 Triage Assessment: 16:20 General: Appears uncomfortable, Behavior is calm, cooperative. Pain: Complains of pain ll1 in left heel Quality of pain is described as aching, throbbing, Pain began 2-3 days ago. Is continuous. Derm: Decubitus located on left heel(s) approximately 1.5 cm to 2.5 cm is stage I well healing wound. No redness, swelling, or drainage. Reports pain. Musculoskeletal: Circulation, motion, and sensation intact. Capillary refill < 3 seconds, Tenderness present in left heel Reports pain in left heel. 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 - Social history:: Smoking status: Patient denies any tobacco usage or history of. Screenin:04 Abuse screen: Denies threats or abuse. Nutritional screening: No deficits noted. ll1 Tuberculosis screening: No symptoms or risk factors identified. Fall Risk Secondary diagnosis (15 points) impaired mobility, IV access (20 points). Ambulatory Aid- Crutches/Cane/Walker (15 pts). Gait- Impaired (20 pts.). Total Cummings Fall Scale indicates High Risk Score (45 or more points). Fall prevention measures have been instituted. Side Rails Up X 2 Frequent Obs/Assessments Occuring As available patient and family educated on Fall Prevention Program and Strategies. Assessment: 17:20 Reassessment: No changes from previously documented assessment. Patient and/or family ll1 updated on plan of care and expected duration. Pain level reassessed. Patient is alert, oriented x 3, equal unlabored respirations, skin warm/dry/pink. Patient states feeling better. 18:17 Reassessment: No changes from previously documented assessment. Patient is alert, ll1 oriented x 3, equal unlabored respirations, skin warm/dry/pink. Vital Signs: 16:20 BP 134 / 93; Pulse 100; Resp 18; Temp 98.4; Pulse Ox 100% ; Weight 79.38 kg; Height 5 ll1 ft. 7 in. (170.18 cm); Pain 10/10; 18:01 BP 141 / 79; Pulse 100; Resp 18; Pulse Ox 96% ; ll1 18:17 BP 139 / 78; Pulse 97; Resp 18; Pulse Ox 100% ; Pain 6/10; ll1 16:20 Body Mass Index 27.41 (79.38 kg, 170.18 cm) ll1 ED Course: 16:20 Patient arrived in ED. ll1 16:21 Dilip Ponce NP is PHCP. pm1 16:21 Angel Merlos MD is Attending Physician. pm1 16:23 Triage completed. ll1 16:24 Arm band placed on Patient placed in an exam room, on a stretcher. ll1 16:39 Aruna Gilbert, SHEBA is Primary Nurse. ll1 17:27 BMP Sent. sv 17:27 CBC with Diff Sent. sv 17:27 Foot Left 3 View XRAY Sent. sv 18:04 Patient has correct armband on for positive identification. Bed in low position. Call ll1 light in reach. Side rails up X 1. Pulse ox on. NIBP on. 18:17 IV discontinued, intact, bleeding controlled, No redness/swelling at site. Pressure 1 dressing applied. 18:18 Inserted saline lock: 22 gauge in right antecubital area, using aseptic technique. ll1 Blood collected. 18:18 No provider procedures requiring assistance completed. 1 Administered Medications: 16:55 Not Given (Patient Refused): fentaNYL (PF) 50 mcg IVP once; RASS on ADMIN: Combtv4, pm1 Very Agttd3, Agttd2, Rstlss1, AlertClm0, Drwsy-1, Lt Sdtn-2, Mod Sdtn-3, Dp Sdtn-4, UnArsble-5 17:03 Drug: morphine 4 mg Route: IVP; Site: right antecubital; [facility] 18:16 Follow up: Response: No adverse reaction; RASS: Alert and Calm (0) [facility] 17:03 Drug: Zofran (Ondansetron) 4 mg Route: IVP; Site: right antecubital; 1 18:16 Follow up: Response: No adverse reaction; RASS: Alert and Calm (0) [facility] 18:15 Drug: [place] 10 mg-325 mg 1 tabs Route: PO; 1 18:19 Follow up: Response: No adverse reaction; RASS: Alert and Calm (0) [facility] Outcome: 17:41 Discharge ordered by MD. pm1 18:18 Discharged to home via wheelchair. [facility] 18:18 Condition: stable 18:18 Discharge instructions given to patient, Instructed on discharge instructions, follow up and referral plans. medication usage, Demonstrated understanding of instructions, follow-up care, medications, Prescriptions given X 1. 18:19 Patient left the ED. [facility] Signatures: Goldie Trinh RN Dilip Oliveros NP CHEESE WRAPPER pm1 Aruna Gilbert RN RN [facility]
--- NOTE | 2020-03-09 17:42 | EDPHYS ---
Physician Documentation [facility] Name: Ernie Rooney Age: 59 yrs Sex: Male : 1960 Arrival Date: 03/09/2020 Time: 16:20 Bed 13 Private MD: ED Physician Angel Merlos HPI: 03/09 16:49 This 59 yrs old Male presents to ER via EMS with complaints of Foot Pain. pm1 16:49 The patient presents with pain, that is chronic. The complaints affect the left heel. pm1 Context: Patient with chronic wound to left foot for the past 8 months that is worse for the past 3 days. Patient with diabetes and neuropathy across both lower extremities. Patient has had wound care addressing his wound for the past month. Not taking any current antibiotics or pain medications. Onset: The symptoms/episode began/occurred 8 month(s) ago, and became worse 3 day(s) ago. Modifying factors: The symptoms are alleviated by nothing. the symptoms are aggravated by nothing. Associated signs and symptoms: Pertinent negatives calf tenderness, fever, swelling. Treatment prior to arrival includes: wound dressing by wound care. Severity of symptoms: in the emergency department the symptoms are actually worse. The patient has experienced similar episodes in the past, several times, chronically. 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 - Social history:: Smoking status: Patient denies any tobacco usage or history of. ROS: 16:49 Constitutional: Negative for fever, chills, and weight loss, Cardiovascular: Negative pm1 for chest pain, palpitations, and edema, Respiratory: Negative for shortness of breath, cough, wheezing, and pleuritic chest pain, Abdomen/GI: Negative for abdominal pain, nausea, vomiting, diarrhea, and constipation. 16:49 Skin: Negative for injury, rash, and discoloration, Neuro: Negative for headache, weakness, numbness, tingling, and seizure. 16:49 MS/extremity: Positive for pain, of the left heel, Negative for injury or acute deformity. Exam: 16:49 Constitutional: This is a well developed, well nourished patient who is awake, alert, pm1 and in no acute distress. Head/Face: Normocephalic, atraumatic. 16:49 Cardiovascular: Exam negative for acute changes, Rate: normal, Rhythm: regular, Pulses: no pulse deficits are appreciated. 16:49 Respiratory: Exam negative for acute changes, respiratory distress, shortness of breath. 16:49 Skin: Appearance: normal except for affected area, left heel with small 4 mm x 3 mm x 3 mm deep wound surrounded by callous area. No redness, discharge, surround cellulitis. . Vital Signs: 16:20 BP 134 / 93; Pulse 100; Resp 18; Temp 98.4; Pulse Ox 100% ; Weight 79.38 kg; Height 5 ll1 ft. 7 in. (170.18 cm); Pain 10/10; 18:01 BP 141 / 79; Pulse 100; Resp 18; Pulse Ox 96% ; ll1 18:17 BP 139 / 78; Pulse 97; Resp 18; Pulse Ox 100% ; Pain 6/10; ll1 16:20 Body Mass Index 27.41 (79.38 kg, 170.18 cm) ll1 MDM: 16:21 Patient medically screened. pm1 16:55 ED course: Patient refused fentanyl since it does not work for him. He requested pm1 morphine and zofran. 17:40 Data reviewed: vital signs. Data interpreted: Pulse oximetry: on room air is 100 %. pm1 Interpretation: normal. Counseling: I had a detailed discussion with the patient and/or guardian regarding: the historical points, exam findings, and any diagnostic results supporting the discharge/admit diagnosis, lab results, radiology results, the need for outpatient follow up, to return to the emergency department if symptoms worsen or persist or if there are any questions or concerns that arise at home. 17:44 ED course: RECORDS MANAGEMENT CLERK Aware reviewed. pm1 17:44 ED course: Patient with well healing wound that is managed by wound care. No signs of pm1 cellulitis or abscess. Pain is chronic and patient does not take any pain medications for his neuropathy. He reports that [place] works well for him. Instructed him to follow up with his PCP or pain management for further management of pain. 03/09 16:25 Order name: CBC with Diff pm1 03/09 16:25 Order name: BMP pm1 03/09 16:25 Order name: Foot Left 3 View XRAY pm1 03/09 17:03 Order name: CBC with Automated Diff; Complete Time: 17:40 EDMS 03/09 17:16 Order name: Basic Metabolic Panel; Complete Time: 17:40 EDMS 03/09 17:24 Order name: RAD; Complete Time: 17:40 EDMS 03/09 16:25 Order name: IV Saline Lock; Complete Time: 16:56 pm1 Administered Medications: 16:55 Not Given (Patient Refused): fentaNYL (PF) 50 mcg IVP once; RASS on ADMIN: Combtv4, pm1 Very Agttd3, Agttd2, Rstlss1, AlertClm0, Drwsy-1, Lt Sdtn-2, Mod Sdtn-3, Dp Sdtn-4, UnArsble-5 17:03 Drug: morphine 4 mg Route: IVP; Site: right antecubital; ll1 18:16 Follow up: Response: No adverse reaction; RASS: Alert and Calm (0) ll1 17:03 Drug: Zofran (Ondansetron) 4 mg Route: IVP; Site: right antecubital; ll1 18:16 Follow up: Response: No adverse reaction; RASS: Alert and Calm (0) ll1 18:15 Drug: [place] 10 mg-325 mg 1 tabs Route: PO; ll1 18:19 Follow up: Response: No adverse reaction; RASS: Alert and Calm (0) ll1 Disposition: 03/10 11:12 Co-signature as Attending Physician, Angel Merlos MD I agree with the assessment and kdr plan of care. Disposition: 03/09/20 17:41 Discharged to Home. Impression: Pain in right foot, Hyperglycemia, unspecified, Other chronic pain. - Condition is Stable. - Discharge Instructions: Chronic Pain, Hyperglycemia, Diabetic Neuropathy, Blood Glucose Monitoring, Adult, Foot Pain. - Prescriptions for Tylenol- Codeine #3 300-30 mg Oral Tablet - take 2 tablets by ORAL route every 6 hours As needed; 20 tablet. - Medication Reconciliation Form, Thank You Letter, Antibiotic Education, Prescription Opioid Use form. - Follow up: Emergency Department; When: As needed; Reason: Worsening of condition. Follow up: Private Physician; When: 2 - 3 days; Reason: Recheck today's complaints, Continuance of care, Re-evaluation by your physician. - Problem is new. - Symptoms have improved. Signatures: Dispatcher [employer] EDMS Angel Merlos MD MD kdr Dilip Ponce NP SPECIAL EDUCATION EDUCATIONAL ASSISTANT pm1 Aruna Gilbert RN RN ll1 Corrections: (The following items were deleted from the chart) 03/09 18: 17:41 03/09/2020 17:41 Discharged to Home. Impression: Pain in right footHyperglycemia, ll1 unspecified; Other chronic pain. Condition is Stable. Forms are Medication Reconciliation Form, Thank You Letter, Antibiotic Education, Prescription Opioid Use. Follow up: Emergency Department; When: As needed; Reason: Worsening of condition. Follow up: Private Physician; When: 2 - 3 days; Reason: Recheck today's complaints, Continuance of care, Re-evaluation by your physician. Problem is new. Symptoms have improved. pm1
[2020-03-09] MEDS ORDERED: HYDROCODONE/APAP 10/325 TAB ONE (18:22)
[2020-03-09 20:26] VITALS: TEMP 98.4
[2020-03-09 20:33] VITALS: BP 139/78; O2SAT 100
== END 2020-03-09 18:19 | disposition home or self-care (01) ==
LOC: ER 16:19
DX: M79.672 Pain in left foot (principal); G89.29 Other chronic pain; E11.65 Type 2 diabetes mellitus with hyperglycemia
CPT/HCPCS: 85025; 80048; 36415; 73630; 96375; 96374; 99284; J2405

== ENCOUNTER 2020-04-20 09:05 | Emergency (ER) | payer OTHER ==
--- OUTSIDE RECORDS SUMMARY | 2020-04-20 10:06 | XMS REPORT | Continuity of Care Document ---
:1960 Author Organization [facility] t Address [address] [place] [address] Care Team Providers Name Role Phone MONIKA HALL MD Primary Care Physician Alvin HALL, Tato Cherry Attending Clinician BROOKE Attending Clinician Unavailable Andrew MONTES DE OCA Attending Clinician Unavailable PHILIP Attending Clinician Unavailable BROOKE Admitting Clinician Unavailable PHILIP Admitting Clinician Unavailable Payers Payer Name Policy Type Policy Number Effective Date Expiration Date Garfield daugherty Kijubipiero efish [place] [id number] [facility] Problems Condition Condition Condition Status Onset Resolution Last Treating Co mments Source Name Details Category Date Date Treatment Clinician Date Chest pain Chest pain Problem Active [facility] - 00:00: Patient 00 [facility] Coronary CAD Problem Active [facility] artery (coronary [facility] - disease artery Patient disease) [facility] Diabetic DKA Problem Active [facility] ketoacidos (diabetic Esme es - is ketoacidos Patien t es) [facility] Hyperglyce Hyperglyce Problem Active [facility] bambi bambi [facility] - Patient [facility] Hypertensi Hypertensi Problem Active [facility] on on [facility] - Patient [facility] Pancreatit Pancreatit Problem Active [facility] is is [facility] - Patient [facility] Uncontroll Uncontroll Problem Active [facility] ed ed [facility] - diabetes diabetes Patien t mellitus mellitus [facility] Allergies, Adverse Reactions, Alerts Allergy Allergy Status Severity Reaction(s) Onset Inactive Treating Comm ents Source Name Type Date Date Clinician No Known DA Active U 2017-05 [facility] Allergie 2-31 [facility] s 00:00: d 00 [facility] No Known DA Active U [facility] Allergie 3- Bayshor s 00:00: e 00 [facility] Medications Ordered Filled Start Stop Current Ordering Indication Dosage Frequency Signature Comments Components Source Medication Medication Date Date Medication? Clinician (SIG) Name Name Aspirin 81 Aspirin 81 2018- No Tera [address] [facility] Mg Tab.chew Mg Tab.chew 10-26 Brooke Hall [facility] - 00:00: 00:00 Patient 00 :00 [facility] Diflunisal Diflunisal 2015- No Todd Wynn [address] [facility] (Dolobid) (Dolobid) 01-17 - 500 Mg 500 Mg 00:00: 00:00 Patient Tablet, 500 Tablet, 500 00 :00 s Mg Oral Mg Oral [facility] Ondansetron Ondansetron 2015- No Todd Wynn [address] [facility] Hcl Hcl 01-17 as Luke s - (Zofran*) 4 (Zofran*) 4 00:00: 00:00 needed for Patient Mg Tablet, Mg Tablet, 00 :00 Nausea s 4 Mg 4 Mg Medical Sublingual Sublingual Agustin ter Clopidogrel Clopidogrel Yes [address] [facility] Bisulfate Bisulfate [facility] - (Plavix) 75 (Plavix) 75 P atient Mg Tablet Mg Tablet [facility] Cyclobenzap Cyclobenzap Yes [address] rine Hcl rine Hcl Times A Luke s - (Flexeril) (Flexeril) Day as P atient 5 Mg Tablet 5 Mg Tablet needed for s Muscle [facility] Spasms [place] Doxazosin Doxazosin Yes [address] Mesylate Mesylate [facility] - (Cardura) 8 (Cardura) 8 P atient Mg Tablet Mg Tablet [facility] Fenofibrate Fenofibrate Yes [address] 200 Mg Cap 200 Mg Cap Esme es - Patient s Medical Center Gabapentin Gabapentin Yes [address] [facility] 800 Mg 800 Mg Hours [facility] - Tablet Tablet [facility] Glipizide 5 Glipizide 5 Yes [address] [facility] Mg Tablet Mg Tablet Day [facility] Hydrocodone Hydrocodone Yes [address] [facility] Bit/Acetami Bit/Acetami Hours as [facility] - nophen nophen needed for Patie nt [place] [facility] 10-325 10-325 Medical Tablet) 1 [...] 50 Mcg 50 Mcg Patient Tablet Tablet [facility] Lisinopril Lisinopril Yes 2.[address] 2.5 Mg 2.5 Mg [facility] - Tablet Tablet Patient Medical Center Metformin Metformin Yes [address] [facility] Hcl Hcl Day [facility] - (Glucophage (Glucophage P atient ) 1,000 Mg ) 1,000 Mg s Tablet Tablet Medical Center Methadone Methadone Yes 5 Every [address] Hcl 5 Mg Hcl 5 Mg Hours [facility] - Tablet Tablet Patient s [facility] Metoprolol Metoprolol Yes [address] Tartrate 25 Tartrate 25 L ukes - Mg Tablet Mg Tablet Patie nt [facility] Nitroglycer Nitroglycer Yes As Needed [facility] in in [facility] - (Nitrostat) (Nitrostat) P atient 0.4 Mg 0.4 Mg s Tab.subl Tab.subl [facility] Omeprazole Omeprazole Yes [address] 20 Mg 20 Mg [facility] - Capsule. Capsule.dr [facility] Simvastatin Simvastatin Yes [address] 80 Mg 80 Mg [facility] - Tablet Tablet Patient s [facility] Tamsulosin Tamsulosin Yes Daily [facility] Hcl 0.4 Mg Hcl 0.4 Mg Esme es - Cap.er.24h Cap.er.24h [facility] Tramadol Tramadol Yes [address] [facility] Hcl Hcl Daily as [facility] - (Ultram) 50 (Ultram) 50 needed for Patient Mg Tablet Mg Tablet Pain [facility] Venlafaxine Venlafaxine Yes [address] Hcl 75 Mg Hcl 75 Mg [facility] - Tab Tab Patient s [facility] Albuterol Albuterol 2017- No [address] [facility] Sulfate Sulfate 10-15 Day as [facility] - (Proair Hfa (Proair Hfa 00:00 needed for Patient Inhaler*) Inhaler*) :00 Shortness s 8.5 Gm Inh, 8.5 Gm Inh, Of Breath Medical 1 Inh 1 Inh Center Inhalation Inhalation Dicyclomine Dicyclomine 2016- No [address] Hcl 20 Mg Hcl 20 Mg 10-15 Daily Esme es - Tablet, 20 Tablet, 20 00:00 Navid blanco Mg Oral Mg Oral :00 [facility] Insulin Insulin 2017- No 40 7AM &Hs [facility] Human Nph Human Nph 10-15 Luke s - (Humulin N) (Humulin N) 00:00 Patient 100 100 :00 s Units/Ml Units/Ml Medical Ml, 40 Ml, 40 Center Sub-Q Sub-Q Naloxone Naloxone 2016- No .4 As Needed [facility] Hcl 0.4 Hcl 0.4 10-15 for [facility] - Mg/1 Ml Mg/1 Ml 00:00 Oversedati Navid blanco Disp.syrin, Disp.syrin, :00 on s 0.4 Mg 0.4 Mg Medical Intraven Intraven [place] Venlafaxine Venlafaxine 2017- No 37.[address] Hcl 75 Mg Hcl 75 Mg 10-15 Luke s - Tab, 37.5 Tab, 37.5 00:00 Manjula ent Mg Oral Mg Oral :00 [facility] Clindamycin Clindamycin 2017- No [address] Hcl 150 Mg Hcl 150 Mg 08-16 Times A [facility] - Capsule, Capsule, 00:00 Day Patien t 300 Mg Oral 300 Mg Oral :00 s [facility] Ibuprofen Ibuprofen 2017- No 800 Three [facility] 600 Mg 600 Mg 08-16 Times A [facility] - Tablet, 800 Tablet, 800 00:00 Day as Patient Mg Oral Mg Oral :00 needed for s Mild Pain Medical (1-3) [place] Ranolazine Ranolazine No [address] [facility] (Ranexa) (Ranexa) 08-16 Day [facility] - 500 Mg 500 Mg 00:00 Patient Tabsr, 1000 Tabsr, 1000 :00 s Mg Oral Mg Oral [facility] Insulin Insulin 2016- No [address] [facility] Human Nph Human Nph 09-08 Luke s - (Humulin N) (Humulin N) 00:00 Patient 100 100 :00 s Units/Ml Units/Ml Medical Ml, 32 Ml, 32 Center Units Units Subcutaneou Subcutaneou sly sly Insulin Insulin 2016- No [address] Regular, Regular, 04-20 Times A Esme es - Human Human 00:00 Day Patient (Humulin R) (Humulin R) :00 s 100 Unit/1 100 Unit/1 Med ical Ml Vial, 45 Ml Vial, 45 C enter Units Units Subcutaneou Subcutaneou sly sly Ranolazine Ranolazine No [address] [facility] (Ranexa) (Ranexa) 04-20 Day [facility] - 500 Mg 500 Mg 00:00 Patient Tabsr, 1000 Tabsr, 1000 :00 s Mg Oral Mg Oral [facility] Insulin Insulin No [address] Regular, Regular, - Meals [facility]ukes - Human Human 00:00 Patient (Humulin R) (Humulin R) :00 s 100 Unit/1 100 Unit/1 Med ical Ml Vial, 20 Ml Vial, 20 C enter Units Sub-Q Units Sub-Q Omeprazole Omeprazole [facility] 40 Mg 40 Mg 06-17 [facility]ukes - Capsule., Capsule., 00:00 Patient :00 s [facility] Insulin Insulin 2015- No 90 Twice A [facility] Glargine Glargine 12-11 Day [facility] - (Lantus) (Lantus) 00:00 Patien t 100 100 :00 s Units/Ml Units/Ml Medical Ml, 90 Unit Ml, 90 Unit C enter Subcutaneou Subcutaneou sly sly Insulin Insulin [address] Regular, Regular, 12-11 Times [...] 25 Mg Oral 25 Mg Oral :00 [facility] Albuterol Albuterol No [address] [facility] Sulfate Sulfate 11-23 as needed Esme es - (Ventolin (Ventolin 00:00 for Manjula ent Hfa) 18 Gm Hfa) 18 Gm :00 Shortness s Hfa.aer.ad, Hfa.aer.ad, Of Breath Medical 90 Mcg 90 Mcg Center Inhalation Inhalation Dicyclomine Dicyclomine [address] [facility] Hcl 10 Mg Hcl 10 Mg 11-23 Day Luke s - Capsule, 10 Capsule, 10 00:00 Patient Mg Oral Mg Oral :00 s [facility] Methocarbam Methocarbam No [address] ol ol 11-23 Times A [facility]ukes - (Robaxin) (Robaxin) 00:00 Day Manjula ent 500 Mg 500 Mg :00 s Tablet, 500 Tablet, 500 M edical Mg Oral Mg Oral Center Metronidazo Metronidazo No [address] le 500 Mg le 500 Mg 11-23 Luke s - Tablet, 500 Tablet, 500 00:00 Patient Mg Oral Mg Oral :00 s [facility] Nitroglycer Nitroglycer No .[address] in in 11-23 for Chest [facility] - (Nitrostat) (Nitrostat) 00:00 Pain Patient 0.4 Mg 0.4 Mg :00 s Tab.subl, Tab.subl, Medic al 0.4 Mg 0.4 Mg [place] Sublingual Sublingual Pantoprazol Pantoprazol [address] e Sodium e Sodium 11-23 [facility]ukes - (Protonix) (Protonix) 00:00 Pa tient 40 Mg 40 Mg :00 s Tablet., Tablet., Med ical 40 Mg Oral [address] Sucralfate Sucralfate [address] [facility] 1 Gm 1 Gm 11-23 Day [facility] - Tablet, 1 Tablet, 1 00:00 Manjula ent Gm Oral Gm Oral :00 [facility] Temazepam Temazepam [address] (Restoril) (Restoril) 11-23 Theresa kes - 30 Mg 30 Mg 00:00 Patient Capsule, 30 Capsule, 30 :00 s Mg Oral Mg Oral [facility] Tizanidine Tizanidine [address] Hcl 4 Mg Hcl 4 Mg 11-23 [facility]ukes - Capsule, 4 Capsule, 4 00:00 Pa tient Mg Oral Mg Oral :00 [facility] Trazodone Trazodone [address] Hcl 50 Mg Hcl 50 Mg 11-23 Luke s - Tablet, 50 Tablet, 50 00:00 Pa tient Mg Oral Mg Oral :00 [facility] Venlafaxine Venlafaxine 37.[address] [facility] Hcl 37.5 Mg Hcl 37.5 Mg 11-23 Day [facility]ukes - Tablet, Tablet, 00:00 Patient 37.5 Tab 37.5 Tab :00 s [facility] Cyclobenzap Cyclobenzap No [address] rine Hcl 10 rine Hcl 10 12-19 Times A [facility]ukes - Mg Tablet, Mg Tablet, 00:00 Day Pa tient 10 Mg Oral 10 Mg Oral :00 [facility] Gabapentin Gabapentin [address] 300 Mg 300 Mg 12-19 Times A [facility] - Capsule, Capsule, 00:00 Day Patien t 600 Mg Oral 600 Mg Oral :00 [facility] Pregabalin Pregabalin [address] [facility] (Lyrica) (Lyrica) 08-14 Day [facility] - 150 Mg 150 Mg 00:00 Patient Capsule, Capsule, :00 s 150 Mg Oral 150 Mg Oral M [facility] Zolpidem Zolpidem 2013- No [address] [facility] [address] Tartrate Tartrate 01-02 [facility] - (Ambien) 10 (Ambien) 10 00:00 Patient Mg Tablet, Mg Tablet, :00 s 10 Mg Oral 10 Mg Oral Med ical Center Procedures Procedure Date / Time Performed Performing Clinician [facility] e Computed tomography 2017-10-24 00:00:[address] [facility] - angiography of brain Patients [facility] CT angiography of chest 2017-10-23 00:00:00 ARLETH WAHL V [facility] - Patients Medical Center Computed tomography of 2017-10-23 00:00:00 ARLETH WAHL CH I . [facility] - brain without Patients Medical radiopaque contrast Center Computed tomography of 2017-04-04 00:00:00 JACQUELYN MONTES DE OCA [facility] without Patients Medical radiopaque contrast Center Computed tomography of 2017-04-04 00:00:00 JACQUELYN MONTES DE OCA [facility] [place] [facility] cervical spine without Patients Medical contrast Center US abdomen complete 2017-03-08 00:00:00 SCOTT AMIN [facility]. kes - Patients Medical Center Encounters Start End Encounter Admission Attending Care Care Encounter Source Date/Time Date/Time Type Type Clinicians Facility Department ID 2020-04-09 2020-04-09 Office RENETTA Esquivel [id number] 13:58:45 14:13:45 Visit [facility] [id number] Dilip Cancer [id number] Center - [id number] [facility] 188 2017-10-23 2017-10-[address] [facility] [id number] 17:29:00 16:54:00 Inpatient TERA 90 Favio s - Patient s [facility] 2017-04-03 2017-04-[address] [facility] [id number] 23:17:00 03:53:00 Emergency JACQUELYN 56 Theresake s - Room Patient s [facility] 2017-03-05 2017-03-[address] [facility] [id number] 06:54:00 10:58:00 Inpatient NICHELLE 44 Luke s - (obs) Patient s [facility] 2017-01-04 2017-01-[address] [facility] [id number] [facility]. 10:33:00 18:56:00 Inpatient 61 Luke s - (obs) Patient s [facility] Results Test Description Test Time Test [...] code = ALKP) 149 Unit/L 50-136 H [id number] 18:02:00 Test Item Value Reference Range Interpretation Comments AMYLASE (test code = SERGIO) 82 Unit/L 25-115 N [id number] 18:02:00 Test Item Value Reference Range Interpretation Comments LIPASE (test code = LIP) 185 Unit/L 114-286 N COMPREHENSIVE METABOLIC [id number] 17:56:00 Test Item Value Reference Range Interpretation [...] TOTAL Unit/L 50-136 (test code = ALKP) [id number] 17:56:00 Test Item Value Reference Range Interpretation Comments AMYLASE (test code = SERGIO) Unit/L 25-115 [id number] 17:56:00 Test Item Value Reference Range Interpretation Comments LIPASE (test code = LIP) 185 Unit/L 114-286 N CBC W/AUTO [id number] 17:46:00 Test Item Value Reference Range Interpretation [...] CRITERIA MDIFF) - CT ABD PELVIS W/O [id number] 17:46:00 Name: FAITH VANCE [facility] : 1960 Age/S: 58 / M [address] Unit #: [id number] Loc: [place] [address] Phys: Nila Chester MD Acct: [id number] Dis Date: Status: REG ER PHONE #: [phone] Exam Date: 01/03/2019 6698 FAX #: Reason: llq EXAMS: CPT: [id number] CT ABD PELVIS W/O CONT 32807 Location ofdictation: B2 CT abdomen and pelvis [...] 1 Signed Report (CONTINUED) Name: FAITH VANCE [facility] : 1960 Age/S: 58 / M [id number] [facility] [place] Unit #: [id number] Loc: [place] [address] Phys: Rochelle Chester MD Acct: [id number] Dis Date: Status: REG ER PHONE #: [phone] Exam Date: 01/03/2019 6045 FAX #: Reason: llq EXAMS: CPT: [id number] CT ABD PELVIS W/O CONT 02644 <Continued> at 9446 Reported and signed by: Renuka Willett M.D. CC: Nila Chester MD Technologist:Tavon Jurado,RT(R)(CT)(MRI) CTDI: DLP: Trnscb Date/Time: 01/03/2019 (3033) RubinaR.PXC Orig Print D/T: S: 01/03/2019 (9724) PAGE 2 Signed ReportBedside [id number] 11:47:00 Test Item Value Reference Range Interpretation Comments Bedside Glucose (test code = 75493-6) 155 70-120 H Meter ID: [id number]odium Level 2017-10-27 08:31:00 Test Item Value Reference Range Interpretation Comments Sodium Level (test code = 2951-2) 139 136-145 [facility] [id number] 08:31:00 Test Item Value Reference Range Interpretation Comments Potassium Level (test code = 2823-3) 4.0 3.5-5.1 [facility] HospitalChloride [id number] 08:31:00 Test Item Value Reference Range Interpretation Comments Chloride Level (test code = 2075-0) 106 98-107 [facility] HospitalCarbon Dioxide [id number] 08:31:00 Test Item Value Reference Range Interpretation Comments Carbon Dioxide Level (test code = -8-9) [facility] HospitalAnion [id number] 08:31:00 Test Item Value Reference Range Interpretation Comments Anion Gap (test code = 07874-9) 12.0 8-16 [facility] HospitalBlood Urea [id number] 08:31:00 Test Item Value Reference Range Interpretation Comments Blood Urea Nitrogen (test code = 12-14 3094-0) [facility] HospitalCreatinine2018-06-08 08:31:00 Test Item Value Reference Range Interpretation Comments Creatinine (test code = 2160-0) 0.72 0.72-1.25 [facility] HospitalBUN/Creatinine [id number] 08:31:00 Test Item Value Reference Range Interpretation Comments BUN/Creatinine Ratio (test code = 11-13 3097-3) [facility] HospitalEstimat Glomerular Filtration Rate 2017-10-27 08:31:00 Test Item Value Reference Range Interpretation Comments Estimat Glomerular Filtration Rate 60- >60 (test code = 92662-4) Ranges were taken from the National Kidney Disease Education Program and the National Kidney Foundation literature.Reference ranges:60 or greater: Xpmppt09- 59 (for 3 consecutive months): Chronic kidneydisease 15 or less: Kidney failure [facility] HospitalGlucose [id number] 08:31:00 Test Item Value Reference Range Interpretation Comments Glucose Level (test code = FNP8534) 195 74-118 H [facility] HospitalCalcium [id number] 08:31:00 Test Item Value Reference Range Interpretation Comments Calcium Level (test code = 38811-8) 9.0 8.4-10.2 [facility] HospitalWhite Blood [id number] 08:12:00 Test Item Value Reference Range Interpretation Comments White Blood Count (test code = 6690-2) 6.06 4.8-10.8 [facility] HospitalRed Blood [id number] 08:12:00 Test Item Value Reference Range Interpretation Comments Red Blood Count (test code = 789-8) 4.22 4.3-5.7 L [facility] HospitalHemoglobin2018-06-08 08:12:00 Test Item Value Reference Range Interpretation Comments Hemoglobin (test code = 37811-9) 12.5 14.0-18.0 L [facility] HospitalHematocrit2018-06-08 08:12:00 Test Item Value Reference Range Interpretation Comments Hematocrit (test code = 4544-3) 36.2 38.2-49.6 L [facility] HospitalMean Corpuscular [id number] 08:12:00 Test Item Value Reference Range Interpretation Comments Mean Corpuscular Volume (test code = 85.8 81-99 787-2) [facility] HospitalMean Corpuscular [id number] 08:12:00 Test Item Value Reference Range Interpretation Comments Mean Corpuscular Hemoglobin (test code 29.6 28-32 = 785-6) [facility] HospitalMean Corpuscular Hemoglobin Concent 2017-10-27 08:12:00 Test Item Value Reference Range Interpretation Comments Mean Corpuscular Hemoglobin Concent 34.5 31-35 (test code = 786-4) [facility] HospitalRed Cell Distribution [id number] 08:12:00 Test Item Value Reference Range Interpretation Comments Red Cell Distribution Width (test code 14.2 11.7-14.4 = 66192-1) [facility] HospitalPlatelet [id number] 08:12:00 Test Item Value Reference Range Interpretation Comments Platelet Count (test code = 777-3) 263 140-360 [facility] HospitalNeutrophils (%) (Auto)2017-10-27 08:12:00 Test Item Value Reference Range Interpretation Comments Neutrophils (%) (Auto) (test code = 51.2 38.7-80.0 01952-9) [facility] HospitalLymphocytes (%) (Auto)2017-10-27 08:12:00 Test Item Value Reference Range Interpretation Comments Lymphocytes (%) (Auto) (test code = 33.7 18.0-39.1 736-9) [facility] HospitalMonocytes (%) (Auto)2017-10-27 08:12:00 Test Item Value Reference Range Interpretation Comments Monocytes (%) (Auto) (test code = 9.1 4.4-11.3 5905-5) [facility] HospitalEosinophils (%) (Auto)2017-10-27 08:12:00 Test Item Value Reference Range Interpretation Comments Eosinophils (%) (Auto) (test code = 4.8 0.0-6.0 713-8) [facility] HospitalBasophils (%) (Auto)2017-10-27 08:12:00 Test Item Value Reference Range Interpretation Comments Basophils (%) (Auto) (test code = 0.7 0.0-1.0 706-2) [facility] HospitalIM GRANULOCYTES %2017-10-27 08:12:00 Test Item Value Reference Range Interpretation Comments IM GRANULOCYTES % (test code = IM 0.5 0.0-1.0 GRANULOCYTES %) [facility] HospitalNeutrophils # (Auto)2017-10-27 08:12:00 Test Item Value Reference Range Interpretation Comments Neutrophils # (Auto) (test code = 3.1 2.1-6.9 751-8) [facility] HospitalLymphocytes # (Auto)2017-10-27 08:12:00 Test Item Value Reference Range Interpretation Comments Lymphocytes # (Auto) (test code = 2.0 1.0-3.2 44103-2) [facility] HospitalMonocytes # (Auto)2017-10-27 08:12:00 Test Item Value Reference Range Interpretation Comments Monocytes # (Auto) (test code = 742-7) 0.6 0.2-0.8 [facility] HospitalEosinophils # (Auto)2017-10-27 08:12:00 Test Item Value Reference Range Interpretation Comments Eosinophils # (Auto) (test code = 0.3 0.0-0.4 711-2) [facility] HospitalBasophils # (Auto)2017-10-27 08:12:00 Test Item Value Reference Range Interpretation Comments Basophils # (Auto) (test code = 704-7) 0.0 0.0-0.1 [facility] HospitalAbsolute Immature Granulocyte (auto 2017-10-27 08:12:00 Test Item Value Reference Range Interpretation Comments Absolute Immature Granulocyte (auto 0.03 0-0.1 (test code = Absolute Immature Granulocyte (auto) [facility] HospitalCreatine Kinase [id number] 15:14:00 Test Item Value Reference Range Interpretation Comments Creatine Kinase MB (test code = 3.90 0-5.0 31705-3) [facility] HospitalTroponin [id number] 15:14:00 Test Item Value Reference Range Interpretation Comments Troponin I (test code = IPA8541) 0.054 0-0.300 [facility] HospitalCreatine [id number] 15:07:00 Test Item Value Reference Range Interpretation Comments Creatine Kinase (test code = 2157-6) 297 30-200 H [facility] HospitalHemoglobin A1c [id number] 08:04:00 Test Item Value Reference Range Interpretation Comments Hemoglobin A1c Percent (test code = 12.6 4.0-7.0 H Hemoglobin A1c Percent) [facility] HospitalTriglycerides [id number] 06:57:00 Test Item Value Reference Range Interpretation Comments Triglycerides Level (test code = 200 0-149 H 2571-8) [facility] HospitalCholesterol [id number] 06:57:00 Test Item Value Reference Range Interpretation Comments Cholesterol Level (test code = 2093-3) 239 0-199 H Less than 200 mg/dL Low Vovq340 - 239 mg/dL Borderline Ukxh533 mg/dl and greaterHigh RiskRio Grande Regional HospitalLDL Cholesterol 2017-10-24 06:57:00 Test Item Value Reference Range Interpretation Comments LDL Cholesterol (test code = 2089-1) 164 60-130 H [facility] HospitalHDL [id number] 06:57:00 Test Item Value Reference Range Interpretation Comments HDL Cholesterol (test code = 2085-9) 35 40-60 L [facility] HospitalCholesterol/HDL [id number] 06:57:00 Test Item Value Reference Range Interpretation Comments Cholesterol/HDL Ratio (test code = 6.8 3.9-4.7 H 9830-1) [facility] HospitalUrine Opiates [id number] 16:18:00 Test Item Value Reference Range Interpretation Comments Urine Opiates Screen (test code = NEGATIVE NEGATIVE 69264-7) [facility] HospitalUrine Barbiturates [id number] 16:18:00 Test Item Value Reference Range Interpretation Comments Urine Barbiturates Screen (test code NEGATIVE NEGATIVE = 640202676) [facility] HospitalUrine Phencyclidine [id number] 16:18:00 Test Item Value Reference Range Interpretation Comments Urine Phencyclidine Screen (test NEGATIVE NEGATIVE code = 33323-7) [facility] HospitalUrine Amphetamines [id number] 16:18:00 Test Item Value Reference Range Interpretation Comments Urine Amphetamines Screen (test code NEGATIVE NEGATIVE = 71877-8) [facility] HospitalUrine Methamphetamines [id number] 16:18:00 Test Item Value Reference Range Interpretation Comments Urine Methamphetamines Screen (test NEGATIVE NEGATIVE code = Urine Methamphetamines Screen) [facility] HospitalUrine Benzodiazepines Jrbnvo7125-48-20 16:18:00 Test Item Value Reference Range Interpretation Comments Urine Benzodiazepines Screen (test NEGATIVE NEGATIVE code = 20132-7) [facility] Coc[facility] Qxkxgp7047-12-93 16:18:00 Test Item Value Reference Range Interpretation Comments Urine Cocaine Screen (test code = NEGATIVE NEGATIVE 3398-5) [facility] Cannabinoids Nmkteu9900-71-37 16:18:00 Test Item Value Reference Range Interpretation Comments Urine Cannabinoids Screen (test code NEGATIVE NEGATIVE = 25597-4) THESE RESULTS ARE FOR MEDICAL TREATMENT ONLYTHIS REPORT CONTAINS UNCONFIRMED SCREENING RESULTS*POSITIVE RESULTS WILL BE CONFIRMED BY REFERENCE LAB UPON REQUEST CUT-OFFDRUG CLASS CONCENTRATION ng/mLAmphetamines 1000Met hamphetamines 1000Cocaine 300Opiate 300Phencyclidine 25Cannabinoid 50Barbiturates 300Benzodiazepine 300Methadone 300[facility]one Qzivgp3372-12-05 16:18:00 Test Item Value Reference Range Interpretation Comments Urine Methadone Screen (test code = NEGATIVE NEGATIVE 90443-5) THESE RESULTS ARE FOR MEDICAL TREATMENT ONLYTHIS REPORT CONTAINS UNCONFIRMED SCREENING RESULTS*POSITIVE RESULTS WILL BE CONFIRMED BY REFERENCE LAB UPON REQUEST CUT-OFFDRUG CLASS CONCENTRATION ng/mLAmphetamines 1000Met hamphetamines 1000Cocaine Metabolite 300Opiate 300Phencyclidine 25Cannabinoid 50Barbiturates 300Benzodiazepine 300Methadone 300[facility]ano[facility]thrombin Xeyb3220-06-92 14:13:00 Test Item Value Reference Range Interpretation Comments Prothrombin Time (test code = 5902-2) 13.6 11.9-14.5 [facility]Prothromb Time International Ratio 2017-10-23 14:13:00 Test Item Value Reference Range Interpretation Comments Prothromb Time International Ratio 1.13 (test code = 6301-6) Oral Anticoagulant Therapy INR Values:1. Low Intensity Therapy 1.5 - 2.02. Moderate IntensityTherapy 2.0 - 3.03. High Intensity Therapy(1) 2.5 - 3.54. High Intensity Therapy(2) 3.0 - 4.05. Panic Value INR > 5.0[facility] HospitalActivated Partial Thromboplast Time 2017-10-23 14:13:00 Test Item Value Reference Range Interpretation Comments Activated Partial Thromboplast Time 27.6 23.8-35.5 (test code = 31178-3) [facility] Tyosbxrwa3156-68-18 14:10:00 Test Item Value Reference Range Interpretation Comments Total Bilirubin (test code = 1975-2) 0.6 0.2-1.2 [facility] HospitalAspartate Amino Transf (AST/SGOT) 2017-10-23 14:10:00 Test Item Value Reference Range Interpretation Comments Aspartate Amino Transf (AST/SGOT) (test 36 5-34 H code = Aspartate Amino Transf (AST/SGOT)) [facility] HospitalAlanine Aminotransferase (ALT/SGPT) 2017-10-23 14:10:00 Test Item Value Reference Range Interpretation Comments Alanine Aminotransferase (ALT/SGPT) 34 0-55 (test code = 1742-6) [facility] HospitalTotal Xfthytf1432-29-43 14:10:00 Test Item Value Reference Range Interpretation Comments Total Protein (test code = 2885-2) 7.3 6.5-8.1 [facility] HospitalAlbumin2018-06-04 14:10:00 Test Item Value Reference Range Interpretation Comments Albumin (test code = 1751-7) 4.0 3.5-5.0 [facility] HospitalGlobulin2018-06-04 14:10:00 Test Item Value Reference Range Interpretation Comments Globulin (test code = 83793-4) 3.3 2.3-3.5 [facility] HospitalAlbumin/Globulin Ikkqv9148-08-34 14:10:00 Test Item Value Reference Range Interpretation Comments Albumin/Globulin Ratio (test code = 1.2 0.8-2.0 1759-0) [facility] HospitalAlkaline Bendowpbipw9184-07-17 14:10:00 Test Item Value Reference Range Interpretation Comments Alkaline Phosphatase (test code = 109 40-150 6768-6) [facility] HospitalB[facility] Natriuretic Ompgnlp4091-53-80 14:10:00 Test Item Value Reference Range Interpretation Comments B-Type Natriuretic Peptide (test code = 92.8 0-100 64012-8) [facility] HospitalAmylase Atrqb1181-38-48 14:10:00 Test Item Value Reference Range Interpretation Comments Amylase Level (test code = 1798-8) 126 25-125 H [facility] HospitalLipase2018-06-04 14:10:00 Test Item Value Reference Range Interpretation Comments Lipase (test code = 3040-3) 98 8-78 H [facility] HospitalD-Dimer Quantitative (PE/DVT)2017-10-23 14:02:00 Test Item Value Reference Range Interpretation Comments D-Dimer Quantitative (PE/DVT) (test 0.49 0.00-0.45 H code = 30185-6) [facility] HospitalDirect Kyllevdcd7578-48-06 13:47:00 Test Item Value Reference Range Interpretation Comments Direct Bilirubin (test code = 13386-6) 0.2 0.0-5.0 [facility] HospitalMagnesium Bbnma0448-08-09 06:52:00 Test Item Value Reference Range Interpretation Comments Magnesium Level (test code = 01736-2) 1.5 1.3-2.1 [facility] HospitalUrine VUD7424-96-70 05:09:00 Test Item Value Reference Range Interpretation Comments Urine WBC (test code = 5821-4) NONE 0-5 [facility] HospitalU[facility] FYA4180-72-63 05:09:00 Test Item Value Reference Range Interpretation Comments Urine RBC (test code = 72226-5) NONE 0-5 [facility] HospitalU[facility] Oodtoeqe5982-02-52 05:09:00 Test Item Value Reference Range Interpretation Comments Urine Bacteria (test code = 04369-9) NONE NONE [facility] Epithelial Nxeen3312-11-11 05:09:00 Test Item Value Reference Range Interpretation Comments Urine Epithelial Cells (test code = NONE NONE 31731-0) [facility] HospitalU[facility] Qulcy9977-65-13 04:46:00 Test Item Value Reference Range Interpretation Comments Urine Color (test code = 5778-6) YELLOW YELLOW [facility] HospitalU[facility] Aawfxtj4241-59-22 04:46:00 Test Item Value Reference Range Interpretation Comments Urine Clarity (test code = 70732-0) CLEAR CLEAR [facility] Specific Rwpgazw9598-96-61 04:46:00 Test Item Value Reference Range Interpretation Comments Urine Specific Jarratt (test code = 1.010 1.010-1.025 5811-5) [facility] gX1599-41-13 04:46:00 Test Item Value Reference Range Interpretation Comments Urine pH (test code = 57701-5) 8 5-7 H [facility] Leukocyte Qfejugqv4762-11-73 04:46:00 Test Item Value Reference Range Interpretation Comments Urine Leukocyte Esterase (test code NEGATIVE NEGATIVE = 5799-2) [facility] Xorfovv0003-31-92 04:46:00 Test Item Value Reference Range Interpretation Comments Urine Nitrite (test code = 79091-0) NEGATIVE NEGATIVE [facility] Bdraeur0532-60-29 04:46:00 Test Item Value Reference Range Interpretation Comments Urine Protein (test code = 5804-0) NEGATIVE NEGATIVE [facility] Glucose (UA)2017-03-05 04:46:00 Test Item Value Reference Range Interpretation Comments Urine Glucose (UA) (test code = NEGATIVE NEGATIVE 2349-9) [facility] Kpxefni1347-57-82 04:46:00 Test Item Value Reference Range Interpretation Comments Urine Ketones (test code = 41376-2) NEGATIVE NEGATIVE [facility] Oivtqpwlcbmx1586-65-18 04:46:00 Test Item Value Reference Range Interpretation Comments Urine Urobilinogen (test code = 0.2 0.2-1 60758-2) [facility] Xjxgixoig9533-89-60 04:46:00 Test Item Value Reference Range Interpretation Comments Urine Bilirubin (test code = 1978-6) NEGATIVE NEGATIVE [facility] Yirbo3173-41-03 04:46:00 Test Item Value Reference Range Interpretation Comments Urine Blood (test code = 24662-5) 2+ NEGATIVE H [facility] [address] [address] Patient Name: FAITH VANCE MR #: [id number] : 1960 Age/Sex: 57/M Req #: [id number] Adm Physician: TERA COX MD Ordered by: TERA COX MD Report #: [id number] Location: [facility] Room/Bed: [place] [address] Procedure: [id number] CT/CTA BRAIN Exam Date: 10/24/17 Exam Time: [...] PM Dictated By: ANA MARIA ARTEAGA MD 163 Transcribed By: ANDREE on 10/24/17 1633 COPY TO: TERA COX MDCT BRAIN [place] [address] Patient Name: FAITH VANCE MR #: [id number] : 1960 Age/Sex: 57/M Req #: [id number] Adm Physician: Ordered by: ARLETH WAHL MD Report #: [id number] Location: ER Room/Bed: Procedure: [id number] CT/CT BRAIN WO Exam Date: 10/23/17 Exam [...] COPY TO: ARLETH WAHL MD CTA CHEST [place] [address] Patient Name: FAITH VANCE MR #: [id number] : 1960 Age/Sex: 57/M Req #: [id number] Adm Physician: Ordered by: ARLETH WAHL MD Report #: [id number] Location: ER Room/Bed: Procedure: [id number] CT/CTA CHEST Exam Date: 10/23/17 Exam Time: [...] 4:21 PM Dictated By: OREN IRIZARRY MD 162 Transcribed By: ANDREE on 10/23/17 1621 COPY TO: ARLETH WAHL V [facility] SINGLE (PORTABLE) [place] [address] Patient Name: FAITH VANCE MR #: [id number] : 1960 Age/Sex: 57/M Req #: [id number] Adm Physician: Ordered by: ARLETH WAHL MD Report #: [id number] Location: ER Room/Bed: Procedure: [id number] DX/CHEST SINGLE (PORTABLE) Exam Date: 10/23/17 Exam [...] TO: ARLETH WAHL V MDCT BRAIN [place] [address] Patient Name: FAITH VANCE MR #: [id number] : 1960 Age/Sex: 56/M Req #: [id number] Adm Physician: Ordered by: JACQUELYN MONTES DE OCA MD Report #: [id number] Location: ER Room/Bed: Procedure: [id number] CT/CT BRAIN WO Exam Date:Exam Time: REPORT [...] DE OCA MD CT CERVICAL SPINE WO [place] [address] Patient Name: FAITH VANCE MR #: [id number] : 1960 Age/Sex: 56/M Req #: [id number] Adm Physician: Ordered by: JACQUELYN MONTES DE OCA MD Report #: [id number] Location: ER Room/Bed: Procedure: [id number] CT/CT CERVICAL SPINE WO Exam Date: Exam [...] 04/04/17206 COPY TO: JACQUELYN MONTES DE OCA [facility] [place] [address] Patient Name: FAITH VANCE MR #: [id number] : 1960 Age/Sex: 56/M Req #: [id number] Adm Physician: Ordered by: JACQUELYN MONTES DE OCA MD Report #: [id number] Location: ER Room/Bed: Procedure: [id number] DX/CHEST SINGLE (PORTABLE) Exam Date: 04/04/17 Exam [...] OCA MDHIP RIGHT 2-3 VW (+/- PELVIS) [place] [address] Patient Name: FAITH VANCE MR #: [id number] : 1960 Age/Sex: 56/M Req #: [id number] [facility] Physician: Ordered by: JACQUELYN MONTES DE OCA MD Report #: [id number] Location: ER Room/Bed: Procedure: [id number] DX/HIP RIGHT 2-3 VW (+/- PELVIS) Exam [...] JACQUELYN AMAYA MDSP LUMBAR, COMPLETE MIN 4VW [place] [address] Patient Name: FAITH VANCE MR #: [id number] : 1960 Age/Sex: 56/M Req #: [id number] Adm Physician: Ordered by: JACQUELYN MONTES DE OCA MD Report #: [id number] Location: ER Room/Bed: Procedure: [id number] DX/SP LUMBAR, COMPLETE MIN 4VW Exam Date: [...] JACQUELYN MONTES DE OCA MDUS ABDOMEN COMPLETE [place] [address] Patient Name: FAITH VANCE MR #: [id number] : 1960 Age/Sex: 56/M Req #: [id number] Adm Physician: NICHELLE PALACIOS MD Ordered by: SCOTT AMIN MD Report #: [id number] Location: [facility] Room/Bed: [place] [address] Procedure: [id number] US/US ABDOMEN COMPLETE Exam Date: 03/08/17 Exam [...] at 10:40 Dictated By: BROOKE BASHIR MD 39 Transcribed By: ANIBAL on 03/08/17 1040 COPY TO: SCOTT AMIN [facility] SINGLE (PORTABLE) [place] [address] Patient Name: FAITH VANCE MR #: [id number] : 1960 Age/Sex: 56/M Req #: [id number] Adm Physician: Ordered by: JACQUELYN MOTNES DE OCA MD Report #: [id number] Location: ER Room/Bed: Procedure: [id number] DX/CHEST SINGLE (PORTABLE) Exam Date: 03/05/17 Exam Time: 0445 REPORT STATUS: Signed CHEST SINGLE (PORTABLE), 03/05/2017 4:15 AM Technique: CHEST SINGLE (PORTABLE) Comparison: 01/04/2017 Clinical history: Chest pain Findings: Status post median sternotomy with broken superior sternotomy wire. See impression. Impression: Low lung volumes result in accentuation of the cardiomediastinal silhouetteand bibasilar vascular crowding. No pleural effusion or pneumothorax. Signed by: Dr Marc oA Talbot MD on 03/05/2017 5:35 AM Dictated By: MARCO A TALBOT MD 4 Transcribed By: ANDREE on 03/05/17534 COPY TO: JACQUELYN MONTES DE OCA MD
--- OUTSIDE RECORDS SUMMARY | 2020-04-20 10:08 | XMS REPORT | Summary of Care ---
:1960 Author Organization [facility] - [facility] Address [address] [place] [address] Care Team Providers Name Role Phone Fransisco Martin Primary Care Provider [facility] Insurance o Reason for Referral (Routine) Status Reason Specialty Diagnoses / Referred By Referred To Procedures Contact Contact New Request IM-CARDIOVASCULAR Diagnoses Coronary artery disease involving [place] coronary artery of [place] heart with angina pectoris Timur Gerardo Prasad, Sendil DISEASE / Procedures Discharge Follow-Up: Specialty Service IM-CARDIOVASCULAR DISEASE; 2 Weeks MD Young, Cardiology [address] [place] [address] [place], [place] JUSTICE 106 [id number] [place] Phone: [phone] Phone: (Routine) Status Reason Specialty Diagnoses / Referred By Referred To Procedures Contact Contact New Request Internal Medicine Diagnoses Coronary artery disease involving [place] coronary artery of [place] heart with angina pectoris Timur Gerardo Patel, Jayendra Procedures Discharge Follow-up: PCP FRANSISCO MARTIN; 2 Weeks MD Simmons [address] [place] [address] [address] [place], [place] Jeff BALL [phone] Phone: (Routine) Status Reason Specialty Diagnoses / Referred By Referred To Procedures Contact Contact New Request Echocardiograph Diagnoses Chest pain in adult Terri Castillo Adc Echo Cardio Procedures ECHO ROUTINE W/DOPPLER COLOR MD Hannah Lab-Pt 146 E HOSPTAL D R [address] [phone] Phone: Fax: (Routine) Status Reason Specialty Diagnoses / Referred By Contact Refe rred To Procedures Contact Closed Echocardiograph Diagnoses Acute systolic congestive heart failure Coral Leblanc MD Procedures ECHO ROUTINE W/DOPPLER COLOR [address] [place] [address]. RT [address] [place] [phone] Phone: Radiology Services (Routine) Status Reason Specialty Diagnoses / Referred By Referred To Procedures Contact Contact New Request Diagnostic Diagnoses Acute systolic congestive heart failure Coral Leblanc, Radiology Procedures XR CHEST [address] [place] [address]. [address] [place] [address] Radiology Services (STAT) Status Reason Specialty Diagnoses / Referred By Referred To Procedures Contact Contact New Request Diagnostic Diagnoses Cellulitis of left foot Coral Leblanc, Radiology Procedures XR FOOT 3+ VW LEFT [address] [place] [address]. [address] [place] [address] MRI/CAT Scan (STAT) Status Reason Specialty Diagnoses / Referred By Referred To Procedures Contact Contact New Request Diagnostic Diagnoses Abdominal pain in male Ibikunle, Radiology Procedures CT ANGIOGRAM ABDOMEN/PELVIS Folusho F, ARROW POINT ATTACHER [address] [place] [phone] MRI/CAT Scan (STAT) Status Reason Specialty Diagnoses / Referred By Referred To Procedures Contact Contact New Request Diagnostic Diagnoses Abdominal pain in male Ibikunle, Radiology Procedures CT ANGIOGRAM CHEST Folusho F, ARROW POINT ATTACHER [address] [place] [phone] Reason for Visit Reason Comments Abdominal Pain Shortness of Breath Headache Auth/Cert Status Reason Specialty Diagnoses / Referred By Referred To Procedures Contact Contact Emergency Medicine Adc Em ergency Dept [address] [place] [address] Fax: Encounter Details Date Type Department Care Team Description 02/03/2020 - Hospital Encounter ADC Medicine Tereso Harris, ARROW POINT ATTACHER [address] [facility] [address] [place] [address] Abdominal pain 02/05/2020 Surgery Unit Coral Leblanc MD 301 [facility]. [address] [place] [address] [place], [place] [address], [place] [id number] Allergies No Known Allergiesdocumented as of this [...] mouth daily. 0 Coronary artery disease involving [place] coronary artery of [place] heart with angina pectoris levothyroxine 50 Take 1 tablet by 30 tablet 0 Active mcg mouth every 0 tabletIndications: morning. Coronary artery disease involving [place] coronary artery of [place] heart with angina pectoris tamsulosin 0.4 mg Take 1 capsule 30 capsule 0 Active 24 hr by mouth daily. 0 capsuleIndications : Coronary artery disease involving [place] coronary artery of [place] heart with angina pectoris venlafaxine 75 mg Take 1 tablet by 30 tablet 0 Active tabletIndications: mouth 2 (two) 0 Coronary artery times daily. disease involving [place] coronary artery of [place] heart with angina pectoris glipiZIDE 5 mg Take 1 tablet by 60 tablet 0 Active tabletIndications: mouth 2 (two) 0 Coronary artery times daily disease involving before breakfast [place] coronary and dinner. artery of [place] heart with angina pectoris metoprolol Take 1 tablet by 60 tablet 1 Ac tive succinate XL 25 mg mouth 2 (two) 0 24 hr times daily. tabletIndications: Coronary artery disease involving [place] coronary artery of [place] heart with angina pectoris furosemide 40 mg Take 1 tablet by 60 tablet 0 Active tabletIndications: mouth every 0 Coronary artery morning and disease involving evening. [place] coronary artery of [place] heart with angina pectoris KCL 20 mEq Take 1 tablet by 30 tablet 1 Ac tive tabletIndications: mouth daily. 0 Coronary artery disease involving [place] coronary artery of [place] heart with angina pectoris atorvastatin 40 mg [...] myocardial infarction) 019 Coronary artery disease involving [place] coronary chandan ry of [place] heart 01/17/2019 with angina pectoris Type 2 [...] Gerardo MD - 02/05/2020 5:45 PM CDT [facility] Hospitalist Discharge Summary Date of Service: ADMIT DATE: 02/03/2020 DISCHARGE DATE: 02/05/2020 ATTENDING MD: Timur Gerardo MD PCP: Fransisco Martin REASON FOR ADMISSION Acute on chronic abdominal pain HOSPITAL COURSE: 59 y/o male presents with abdominal pain with exertional dyspnea. Patient was discharged from [facility] for acute on chronic left heel diabeted [...] might need to start NPH Discharged to [facility] PHYSICAL EXAM: General: No acute distress HEENT: [...] 02/05/2020 Associated Diagnoses: Coronary artery disease involving [place] coronary artery of [place] heart withangina pectoris glipiZIDE (GLUCOTROL) 5 mg Take 5 mg by mouth 2 (two) times daily before breakfast and dinner. Qty: 60 tablet, Refills: 0 Start date: 02/05/2020 Associated Diagnoses: Coronary artery disease involving [place] coronary artery of [place] heart withangina pectoris KCL (KLOR-CON M20) 20 mEq Take 20 mEq by mouth daily. Qty: 30 tablet, Refills: 1 Start date: 02/06/2020 Associated Diagnoses: Coronary artery disease involving [place] coronary artery of [place] heart withangina pectoris metoprolol succinate XL (TOPROL XL) 25 mg Take 25 mg by mouth 2 (two) times daily. Qty: 60 tablet, Refills: 1 Start date: 02/05/2020 Associated Diagnoses: Coronary artery disease involving [place] coronary artery of [place] heart withangina pectoris CONTINUE these medications which [...] 02/05/2020 Associated Diagnoses: Coronary artery disease involving [place] coronary artery of [place] heart withangina pectoris lisinopriL (PRINIVIL,ZESTRIL) 2.5 mg Take 2.5 mg by mouth daily. Qty: 30 tablet, Refills: 0 Start date: 02/05/2020 Associated Diagnoses: Coronary artery disease involving [place] coronary artery of [place] heart withangina pectoris nitroglycerin (NITROSTAT) 0.4 mg [...] 02/05/2020 Associated Diagnoses: Coronary artery disease involving [place] coronary artery of [place] heart withangina pectoris venlafaxine (EFFEXOR) 75 mg Take 75 mg by mouth 2 (two) times daily. Qty: 30 tablet, Refills: 0 Start date: 02/05/2020 Associated Diagnoses: Coronary artery disease involving [place] coronary artery of [place] heart withangina pectoris STOP taking these medications cadexomer iodine 0.9 % gel Comments: Reason for Stopping: ondansetron (ZOFRAN-ODT) 4 mg Comments: Reason for Stopping: DISCHARGE: senior living facility or correction Please call paging services at [phone] to contact Timur Gerardo MD with any questions. Timur Gerardo MD Hospital discharge time took longer than 35 minutes. documented in this encounter Discharge Instructions AttachmentsThe following attachments cannot be sent through Care Everywhere. Abdominal Pain, Adult (Micronesian)Chest Pain, Uncertain Cause (Micronesian)Metoprolol tablets (Micronesian)Furosemide tablets (Micronesian)Glipizide tablets (Micronesian) documented in this encounter Progress Notes Ashley Sanchez LMSW - 02/05/2020 4:08 PM CDTSummary: Inpatient Scheduling Spoke with patient prior to discharge to assist with scheduling hospital follow up appointments. Pt is discharging to SNF and reports he would rather wait until they know his discharge date from the SNF to schedule. HVAC CONTROLS TECHNICIAN informed patient that the referrals would be deferred for 20 days and she would touch base with him at that time for scheduling. Pt was agreeable to plan. Referrals documented and deferred. Ashley Sanchez LMSW Metal Rivet Machine Operator - Community Wellness and Outreach Community and Population Health Latrice Jung - 7th floor Office: [phone] (Not for patient use) [email or web address] Leona Loera - 02/05/2020 10:15 AM CDTEncounter: Visit due to POCR assessment Yazidi: Rastafarian Assessment: Patient seems to have some social issues & challenges which seems to sometimes hinder him from being fully compliant with self-care. He seems to understand results of not being compliant all the time but shared that sometimes it is beyond his control. He seems to be a person of deep roman catholic joe and recognizes that life and are [...] Mother & Stepfather seemed accepting and adjusting. Roofing Subcontractor Leona Loera Kimi Moralez LBSW - 02/05/2020 10:02 AM SREEDHARubjective Patient ID: Ernie Rooney is a 59 year old male. Care Management Social Functional Assessment Patient Name: Ernie Rooney Age: [age] year old Sex: male Patient's Previous Admission Date at [facility]: 11/16/2019 Current diagnosis and co-morbidities: Abdominal pain,SOB;chest pain Readmission Questions: Was patient discharged from any acute care hospital within the last 30 days: No Social Functional Assessment: Primary language spoken/preferred: Micronesian Mental Status: Alert & Oriented to Person,Place & Time Information given by: Self Patient's support system: Parent Name and number of support system: Rose Desouza, mother [phone] Primary Marketing Systems Analyst: Self MPOA: No Living Arrangement: Home Address of living arrangement : [address] [place] [phone] Persons living in home: Self Barriers to returning home: None Baseline functional status- ambulation: Requires minimal to moderate assistance Functional status-baseline personal care: Independent Baseline functional status- driving: Independent Baseline functional status- grocery shopping: Independent Functional status-baseline housekeeping: Independent Functional status-baseline meal prep: Independent Current functional status same as prior: Yes Do you have a PCP?: Yes Name of PCP: [facility] Care Agency: No Provider Services: No DME [...] you or your support system able to warp picker medications at discharge: yes. Review of Systems Objective Physical Exam Assessment/Plan SNF placement FRANCISCO Mckeon Metal Rivet Machine Operator - Care Management [facility] [phone] [email or web address] Chris Barrera MD - 02/05/2020 8:15 AM CDT [facility] Cardiology progress note Date of Service: 02/05/2020 [...] pain Active Problems: Coronary artery disease involving [place] coronary artery of [place] heart with angina pectoris Type 2 diabetes [...] iatrogenic AVF/PAD: Recommend to follow up with [facility] vascular surgery. T2DM: Follows PCP. History bradycardia [...] 40 mg daily Troponin elevation--Likely type 2 NH in the setting of HF, demand ischemia. Chris Geronimo MD, FACC, KALYAN Project Technician, Division of Cardiology [facility] Timur Sauceda MD - 02/04/2020 10:59 AM CDT [facility] Hospitalist Progress Note SUBJECTIVE: No [...] with exertional dyspnea. Patient was discharged from [facility] for acute on chronic left heel diabeted [...] chest pain severe. Patient was discharged from [facility] for acute on chronic left heel diabeted [...] [address] [facility]; for bradycardia [place] CSI ANY OTHER THAN PCI 2 YR 2018 [place] REMOVAL OF KIDNEY STONE 2009 Family History Problem Relation Age of Onset NH (myocardial infarction) Father 65 Diabetes Maternal Grandmother NH (myocardial infarction) Maternal Grandfather Stroke Maternal Grandfather [...] file Gets together: Not on file Attends roman catholic service: Not on file Active member of [...] chest pain severe. Patient was discharged from [facility] for acute on chronic left heel diabeted [...] [address]; for bradycardia [place] CSI ANY OTHER THAN PCI 2 YR 2018 [place] REMOVAL OF KIDNEY STONE 2009 FAMILY HISTORY Family History Problem Relation Age of Onset NH (myocardial infarction) Father 65 Diabetes Maternal Grandmother [place] (myocardial infarction) Maternal Grandfather Stroke Maternal Grandfather [...] of Report Imaging CT ANGIOGRAM CHEST (Order: [id number]) - 02/03/2020 Ordering Physician: GILMER HARRIS Clinical [...] of Report Imaging CT ANGIOGRAM ABDOMEN/PELVIS (Order: [id number]) - 02/03/2020 ASSESSMENT and PLAN Ernie Rooney [...] invasive procedure 2. DM 3. CAD S/P NH, PCI 2-2019, S/P AICD Barbara Maria MD 02/04/2020 5:19 PM Kimi Eugene LBSW - 02/04/2020 2:30 PM CDTAssociated Order(s): CONSULT GREEN PRIZE PACKER-ADULTSpoke with patient regarding recommendations for SNF placement. Explained services and will providedpatient with a list of in network agencies to consider. Pt is agreeable to plan and has no preference for a SNF. SW will submit to various facilities and await authorization. FRANCISCO Mckeon Metal Rivet Machine Operator - Care Management [facility] [phone] [email or web address] Eula Flores, PT - 02/04/2020 11:03 AM [...] Transfers: Sit to stand: Minimal assist using INTERNAL COMMUNICATIONS WRITER Stand to sit: Min A using INTERNAL COMMUNICATIONS WRITER Verbal cueing provided for correct hand placement [...] [address]; for bradycardia [place] CSI ANY OTHER THAN PCI 2 YR 2018 [place] REMOVAL OF KIDNEY STONE 2009 Prior Living [...] -Pain Management: Nursing Notified COMMUNICATION Primary Language: Micronesian Able to Verbalize needs: Yes Vision:good; no [...] of teaching provided. Eula Batres,PT [place] License: [id number] Required Components in Determining Evaluation Level History: No personal factors or comorbidities: No (85554) 1-2 personal factors and/or comorbidities: Yes (96981) 3 or more personal factors and/ or comorbidities: No (03999) Examination of Body System(s) Addressing 1-2 elements: Yes (30709) Addressing a total of 3 or more elements: No (42309) Addressing a total of 4 or more elements: No (42382) Clinical Presentation Stable: Yes (96235) Evolving: No (47401) Unstable: No (76763) Clinical Decision Making (Complexity) Low: Yes (45439) Moderate: No (22062) High: No (45898) Terri Castrejon MD - 02/04/2020 8:15 AM CDTAssociated Order(s): CONSULT CARDIOLOGY [facility] Cardiology Consult Note Patient: Ernie Rooney Date [...] improved EF 55-60% TTE 07/16/18 (TTE from [place] EF 45%), NYHA 2, Stage C Hx Bradycardia s/p PPM in [place]. H/o L subclavian steal syndrome (per [place] records) HLD H/o CVA (w L residual [...] stenosis in the midportion and 99% stenosis (MAKE UP OPERATOR) in the distal RCAat the origin of [...] [address]; for bradycardia [place] CSI ANY OTHER THAN PCI 2 YR 2018 [place] REMOVAL OF KIDNEY STONE 2009 Family History Problem Relation Age of Onset NH (myocardial infarction) Father 65 Diabetes Maternal Grandmother NH (myocardial infarction) Maternal Grandfather Stroke Maternal Grandfather [...] file Gets together: Not on file Attends roman catholic service: Not on file Active member of [...] Atypical chest pain Coronary artery disease involving [place] coronary artery of [place] heart with angina pectoris Type 2 diabetes [...] iatrogenic AVF/PAD: Recommend to follow up with [facility] vascular surgery. T2DM: Follows PCP. History bradycardia [...] feel free to call our office at [phone]. I would be happy to be of further assistance for Ernie Rooney wellbeing. Emil Castillo MD Project Technician, Division of Cardiology [facility] documented in this encounter Nursing Notes Aisha Hi RN - 02/05/2020 6:00 PM CDTReport given to Francy at [facility]. documented in this encounter ED Notes Cecelia [...] PM CDT EMERGENCY DEPARTMENT ENCOUNTER [facility] Patient Name: Ernie Rooney Date of : 1960 59 year old Exam Room:TX5/TX5 Primary Care Physician: Fransisco Martin Pre- Hospital Patient Escorted by: Self [9] Mode of Arrival: Personal means [1] EMS Treatment Prior to ED Arrival: n/a ASSISTANT WINEMAKER treatment: None Chief Complaint Chief Complaint Patient [...] pain severity scale. History provided by: Patient cryptologic support specialist used: No Abdominal Pain Pain location: LUQ [...] [address]; for bradycardia [place] CSI ANY OTHER THAN PCI 2 YR 2018 [place] REMOVAL OF KIDNEY STONE 2009 Allergies No [...] GLUCOSE (AUTOMATED) CONSULT ADULT PHYSICAL THERAPY Consult Cardiovascular Tech-Adult CONSULT CARDIOLOGY CONSULT GASTROENTEROLOGY CONSULT ORTHOPAEDIC SURGERY [...] patient under investigation (PUI)?: No Treatment Team: [facility] [[id number]] Primary reason for admission: Chest pain in adult [0436633] Is (or was) this a planned re-admission?: [...] for consultation. Wayne Can Jr., MD Clinical Project Technician [facility] Emergency Department documented in this encounter Miscellaneous [...] of this encounter Implants Implanted Type Area Reporting Consultant Device 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 PACEMAKER [id number] / Assurity [id number] / Pacemaker Metal Bar-05/22/1994 Back Implanted: 05/22/1994 [...] PANEL Add-on 02/04/2020 1:44 Results for this (57819)(TOTAL AM CDT procedure are in CHOLESTEROL, the [...] pain in Re sults for this PANEL (24885) PM CDT male procedure are in (ALB,T.PRO,BILI [...] GLU 173 (H) 70 - 110 mg/dL [facility] Specimen Blood Performing Organization Address City/State/Zipcode Phone Number [facility] CLIA: [id number] [place] [address] POCT GLUCOSE (AUTOMATED) (02/05/2020 10:33 AM CDT) Pathologist Sig nature POCT GLU 127 (H) 70 - 110 mg/dL [facility] Specimen Blood Performing Organization Address [facility] Phone Number [facility] CLIA: [id number] [place] [address] POCT GLUCOSE (AUTOMATED) (02/05/2020 7:51 AM CDT) Pathologist Sig nature POCT GLU 112 (H) 70 - 110 mg/dL [facility] Specimen Blood Performing Organization Address [facility] Phone Number [facility] CLIA: [id number] [place] [address] POCT GLUCOSE (AUTOMATED) (02/05/2020 4:10 AM CDT) Pathologist Sig nature POCT GLU 124 (H) 70 - 110 mg/dL [facility] Specimen Blood Performing Organization Address [facility] Phone Number [facility] CLIA: [id number] [place] [address] URIC ACID (02/05/2020 3:19 AM CDT) Pathologist Sig nature URIC ACID 9.1 (H) 3.6 - 8.0 mg/dL [facility] Specimen Blood - ARM, LEFT Performing Organization Address [facility] Number [facility] CLIA: [id number] [place] [address] N-TERMINAL PRO-BNP (02/05/2020 3:19 AM CDT) Pathologist Sig nature NT-proBNP 1,840 (H) <=125 pg/mL [facility] Specimen Blood - ARM, LEFT Narrative Performed At Biotin has been reported to cause a negative [facility] bias, interpret results relative to patient's use of biotin. Performing Organization Address [facility] Phone Number [facility] CLIA: [id number] [place] [address] BASIC METABOLIC PANEL (NA, K, CL, CO2, GLUCOSE, BUN, CREATININE, CA) (02/05/2020 3:19 AM CDT) Pathologist [facility] nature NA 139 135 - 145 [facility] mmol/L [facility] K 3.5 3.5 - 5.0 [facility] mmol/L [facility] CL 102 98 - 108 mmol/L [facility] CO2 TOTAL 28 23 - 31 mmol/L [facility] AGAP 9 2 - 16 [facility] BUN 20 7 - 23 mg/dL [facility] GLUCOSE 138 (H) 70 - 110 mg/dL [facility] CREATININE 1.16 0.60 - 1.25 [facility] mg/dL [facility] CALCIUM 8.8 8.6 - 10.6 [facility] mg/dL [facility] eGFR Calculation 64.0 mL/min/1.73m2 [facility] ([facility] LAB[facility] Burmese) eGFR Calculation 77.6 mL/min/1.73m2 [facility] () [facility] Specimen Blood - ARM, LEFT Narrative Performed At Association of Glomerular Filtration Rate (GFR) [facility] and Staging of Kidney Disease* [...] tests). Performing Organization Address City/State/Zipcode Phone Number [facility] CLIA: [id number] [place] [address] CBC WITH DIFF (02/05/2020 3:19 AM CDT) [facility] WBC 7.06 4.20 - 10.70 [facility] 10*3/L HOS[facility]ITAL [facility] RBC 3.02 (L) 4.26 - 5.52 [facility] 10*6/L [facility] HGB 8.7 (L) 12.2 - 16.4 [facility] g/dL [facility] HCT 26.8 (L) 38.4 - 49.3 % [facility] MCV 88.7 81.7 - 95.6 fL [facility] MCH 28.8 26.1 - 32.7 pg [facility] MCHC 32.5 31.2 - 35.0 [facility] g/dL [facility] RDW-SD 43.9 38.5 - 51.6 fL [facility] RDW-CV 13.5 12.1 - 15.4 % [facility] PLT 232 150 - 328 [facility] 10*3/L [facility] MPV 10.9 9.8 - 13.0 fL [facility] NRBC/100 WBC 0.0 0.0 - 10.0 /100 [facility] WBCs [facility] NRBC x10^3 <0.01 10*3/L [facility] GRAN MAT (NEUT) % 63.9 % [facility] IMM GRAN % 0.30 % [facility] LYMPH % 21.1 % [facility] MONO % 10.9 % [facility] EOS % 3.4 % [facility] BASO % 0.4 % [facility] GRAN MAT x10^3(ANC) 4.51 1.99 - 6.95 [facility] 10*3/uL HOSPITAL LABORATORY IMM GRAN x10^3 <0.03 0.00 - 0.06 [facility] 10*3/uL HOSPITAL LABORATORY LYMPH x10^3 1.49 1.09 - 3.23 [facility] 10*3/uL HOSPITAL LABORATORY MONO x10^3 0.77 0.36 - 1.02 [facility] 10*3/uL HOSPITAL LABORATORY EOS x10^3 0.24 0.06 - 0.53 [facility] 10*3/uL HOSPITAL LABORATORY BASO x10^3 0.03 0.01 - 0.09 [facility] 10*3/uL HOSPITAL LABORATORY Specimen Blood - ARM, LEFT Performing Organization Address [facility] Phone Number [facility] CLIA: [id number] [place] [address] [address] TROPONIN I (02/05/2020 3:19 AM CDT) Pathologist Sig nature TROPONIN I 0.022 <=0.034 ng/mL [facility] LABORATORY Specimen Blood - ARM, LEFT Narrative Performed At Equal or Less than 0.034 ng/ml---Normal [facility] LAB[facility] Note: Cardiac troponin begins to [...] patient's use of biotin. Performing Organization Address [facility] Phone Number [facility] CLIA: [id number] [place] [address] UREA NITROGEN, URINE RANDOM (02/04/2020 6:03 PM CDT) Pathologist Sig nature UREA N UR 119 mg/dL [facility] LABORATORY SERVICES Specimen Urine - URINE, CLEAN CATCH Performing Organization Address [facility] Phone Number [facility] SERVICES CLIA: [id number] [place] [address] [place] [address] SODIUM, URINE RANDOM (02/04/2020 6:02 PM CDT) Pathologist Sig nature NA URINE 130 mmol/L [facility] LA BORATORY Specimen Urine - URINE, CLEAN CATCH Performing Organization Address [facility] Phone Number [facility] CLIA: [id number] [place] [address] [address] PROTEIN CREAT RATIO URINE RANDOM (02/04/2020 6:02 PM CDT) Pathologist Sig nature T. PROT U 22 mg/dL [facility] LABORATORY CREAT U 27.1 mg/dL [facility] LAB[facility] Protein/Creatinine 0.8 0.0 - 2.0 [facility] Urine [facility] LABORATORY Specimen Urine - URINE, CLEAN CATCH Narrative Performed At Random Urine Total Protein Reference Ran ges [facility] LABORATORY Random Specimen: Less than 10 mg/dL First Morning Specimen: Less than 20 mg/dL Performing Organization Address [facility] Phone Number [facility] CLIA: [id number] [place] [address] POCT GLUCOSE (AUTOMATED) (02/04/2020 4:36 PM CDT) Pathologist Sig [facility] POCT GLU 214 (H) 70 - 110 mg/dL [facility] LABORATORY Specimen Blood Performing Organization Address [facility] Phone Number [facility] CLIA: [id number] [place] [address] TROPONIN I (02/04/2020 12:36 PM CDT) Pathologist Sig [employer] TROPONIN I 0.021 <=0.034 ng/mL [facility] LABORATORY Specimen Blood - ARM, LEFT Narrative Performed At Equal or Less than 0.034 ng/ml---Normal [facility] LABOR[facility] Note: Cardiac troponin begins to [...] patient's use of biotin. Performing Organization Address [facility] Phone Number [facility] CLIA: [id number] [place] [id number] LABORATORY [address] POCT GLUCOSE (AUTOMATED) (02/04/2020 12:12 PM CDT) Specimen Blood Performing Organization Address [facility] Phone Number [facility] CLIA: [id number] [place] [address] [address] POCT GLUCOSE (AUTOMATED) (02/04/2020 7:47 AM CDT) Pathologist Sig nature POCT GLU 232 (H) 70 - 110 mg/dL [facility] LABORATORY Specimen Blood Performing Organization Address [facility] Phone Number [facility] CLIA: [id number] [place] [address] LABORATORY [address] XR CHEST 1 VW (02/04/2020 5:54 AM [...] small left pleural effusion. Performing Organization Address [facility] Phone Number PACS/VR/DOSE XR FOOT 3+ VW [...] in the left foot bones. Procedure Note [facility], Radiant Results Inft User - 2019 8:08 [...] the left foot bones. Performing Organization Address City/[facility] Phone Number PACS/VR/DOSE ABORH CONFIRMATION (02/04/2020 5:00 AM CDT) Pathologist Sig nature ABO & RH O Positive LAB Comment: Performed at [facility] Laboratory Services - [facility] Blood Bank [address] [place] [phone] Toll Free: [phone] CLIA No. [id number] Specimen Performing Organization Address [facility] Phone Number BLD LAB POCT GLUCOSE (AUTOMATED) (02/04/2020 2:28 AM CDT) Pathologist Sig sherry POCT GLU 141 (H) 70 - 110 mg/dL [facility] LABORATORY Specimen Blood Performing Organization Address [facility]/Zipcode Phone Number [facility] CLIA: [id number] [place] [address] [place] [address] Type and Screen - ONCE Routine (02/04/2020 1:47 AM CDT) Pathologist Sig nature ABO & RH O Positive LAB Comment: Performed at [facility] Laboratory Services - [facility] Blood Bank [address] [place] [phone] Toll Free: [phone] CLIA No. [id number] IAT Negative LAB Comment: Performed at [facility] Laboratory Services - [facility] Blood Bank [address] [place] [phone] Toll Free: [phone] CLIA No. [id number] Specimen Blood - VENOUS Performing Organization Address [facility] Phone Number BLD LAB LIPID PANEL ([phone])(TOTAL CHOLESTEROL, TRIGLYCERIDES, HDL) (02/04/2020 1:44 AM CDT) Pathologist Sig nature CHOL 187 120 - 200 mg/dL [facility] LABORATORY HDL 32 (L) >40 mg/dL [facility] LABORATORY HDLC RATIO 5.8 (H) <=5.0 [facility] LABORATORY TRIG 164 30 - 170 mg/dL [facility] LABOR[facility]ORY LDL CHOL 122 <=160 mg/dL [facility] LAB[facility] VLDL 33 5 - 60 mg/dL [facility] LABORATORY Specimen Blood - ARM, LEFT Performing Organization Address [facility] Phone Number [facility] CLIA: [id number] [place] [address] [place] [address] URIC ACID (02/04/2020 1:44 AM CDT) Pathologist Sig nature URIC ACID 7.7 3.6 - 8.0 mg/dL [facility] LABORATORY Specimen Blood - ARM, LEFT Performing Organization Address [facility] Phone Number [facility] CLIA: [id number] [place] [address] [place] [address] N-TERMINAL PRO-BNP (02/04/2020 1:44 AM CDT) Pathologist Sig nature NT-proBNP 1,920 (H) <=125 pg/mL [facility] LABORATORY Specimen Blood - ARM, LEFT Narrative Performed At Biotin has been reported to cause a negative [facility] LABORATORY bias, interpret results relative to patient's use of biotin. Performing Organization Address [facility] Phone Number [facility] CLIA: [id number] [place] [address] [place] [address] BASIC METABOLIC PANEL (NA, K, CL, CO2, GLUCOSE, BUN, CREATININE, CA) (02/04/2020 1:44 AM CDT) Pathologist Sig nature NA 140 135 - 145 [facility] mmol/L [facility] LABORATORY K 4.0 3.5 - 5.0 [facility] mmol/L [facility] LABORATORY CL 106 98 - 108 mmol/L [facility] LABORATORY CO2 TOTAL 27 23 - 31 mmol/L [facility] LABORATORY AGAP 7 2 - 16 [facility] LABORATORY BUN 12 7 - 23 mg/dL [facility] GLUCOSE 150 (H) 70 - 110 mg/dL [facility] CREATININE 0.91 0.60 - 1.25 [facility] mg/dL [facility] LABORATORY CALCIUM 9.0 8.6 - 10.6 [facility] mg/dL [facility] LABORATORY eGFR Calculation 84.7 mL/min/1.73m2 [facility] ([facility] LABORATORY Burmese) eGFR Calculation 102.7 mL/min/1.73m2 [facility] () [facility] LABORATORY Specimen Blood - ARM, LEFT Narrative Performed At Association of Glomerular Filtration Rate (GFR) [facility] LABORATORY and Staging of Kidney Disease* [...] tests). Performing Organization Address City/State/Zipcode Phone Number [facility] CLIA: [id number] [place] [address] LABORATORY [address] CBC WITH DIFF (02/04/2020 1:44 AM CDT) [facility] nature WBC 5.64 4.20 - 10.70 [facility] 10*3/L HOSPITAL LABORATORY RBC 3.21 (L) 4.26 - 5.52 [facility] 10*6/L HOSPITAL LABORATORY HGB 9.4 (L) 12.2 - 16.4 [facility] g/dL HOSPITAL LABORATORY HCT 28.7 (L) 38.4 - 49.3 % [facility] LABORATORY MCV 89.4 81.7 - 95.6 fL [facility] LABORATORY MCH 29.3 26.1 - 32.7 pg [facility] LABORATORY MCHC 32.8 31.2 - 35.0 [facility] g/dL [facility] LABORATORY RDW-SD 45.0 38.5 - 51.6 fL [facility] LABORATORY RDW-CV 13.7 12.1 - 15.4 % [facility] LABORATORY PLT 270 150 - 328 [facility] 10*3/L [facility] LABORATORY MPV 9.8 9.8 - 13.0 fL [facility] LABORATORY NRBC/100 WBC 0.0 0.0 - 10.0 /100 [facility] WBCs [facility] LABORATORY NRBC x10^3 <0.01 10*3/L [facility] LABORATORY GRAN MAT (NEUT) % 50.8 % [facility] LABORATORY IMM GRAN % 0.20 % [facility] LABORATORY LYMPH % 34.0 % [facility] LABORATORY MONO % 9.8 % [facility] LABORATORY EOS % 4.8 % [facility] LABORAT[facility] BASO % 0.4 % [facility] LABORATORY GRAN MAT x10^3(ANC) 2.87 1.99 - 6.95 [facility] 10*3/uL HOSPITAL LABORATORY IMM GRAN x10^3 <0.03 0.00 - 0.06 [facility] 10*3/uL HOSPITAL LABORATORY LYMPH x10^3 1.92 1.09 - 3.23 [facility] 10*3/uL HOSPITAL LABORATORY MONO x10^3 0.55 0.36 - 1.02 [facility] 10*3/uL HOSPITAL LABORATORY EOS x10^3 0.27 0.06 - 0.53 [facility] 10*3/uL HOSPITAL LABORATORY BASO x10^3 <0.03 0.01 - 0.09 [facility] 10*3/uL HOSPITAL LABORATORY Specimen Blood - ARM, LEFT Performing Organization Address [facility] Phone Number [facility] CLIA: [id number] [place] [address] [address] TROPONIN I (02/04/2020 1:44 AM CDT) Pathologist Sig nature TROPONIN I 0.039 (H) <=0.034 ng/mL [facility] LABORATORY Specimen Blood - ARM, LEFT Narrative Performed At Equal or Less than 0.034 ng/ml---Normal [facility] LABORATORY Note: Cardiac troponin begins to [...] patient's use of biotin. Performing Organization Address [facility] Phone Number [facility] CLIA: [id number] [place] [address] IRON PANEL (02/04/2020 1:44 AM CDT) Pathologist Sig nature IRON 38 (L) 50 - 160 ug/dL [facility] LABORATORY TIBC 352 250 - 410 ug/dL [facility] % FE SAT 11 (L) 20 - 50 % [facility] LABOR[facility]ORY Specimen Blood - ARM, LEFT Performing Organization Address [facility] Phone Number [facility] CLIA: [id number] [place] [address] PROCALCITONIN (02/04/2020 1:44 AM CDT) Pathologist Sig nature Procalcitonin 0.02 <0.07 ng/mL [facility] LABORATORY SERVICES Specimen Blood - ARM, LEFT Narrative Performed At INTERPRETATION OF PROCALCITONIN RESULTS IN ADULTS >= 1 8 [facility] LABORATORY SERVICES YEARS OF AGE Initiation and [...] abscess/empyema. For further information please refer to: [email or web address] [email or web address] Organization Address City/State/Zipcode Phone Number [facility] SERVICES CLIA: [id number] [place] [address] [place] [address] VITAMIN D, 25-OH (02/04/2020 1:44 AM CDT) Pathologist Sig nature VIT D 25OH 20 (L) 25 - 80 ng/mL [facility] SERVICES Specimen Blood - ARM, LEFT Narrative Performed At Deficiency: <20 ng/mL [facility] SERVICES Insufficiency: 20-24 ng/mL Optimal: 25-80 ng/mL Performing Organization Address City/[facility] Phone Number [facility] CLIA: [id number] [place] [address] [place] [address] VITAMIN B12, LEVEL (02/04/2020 1:44 AM CDT) Pathologist Sig nature VIT B12 428 240 - 930 pg/mL [facility]ORY SERVICES Specimen Blood - ARM, LEFT Narrative Performed At Biotin has been reported to cause a positive bias, int erpret [facility] SERVICES results relative to patient's use of biotin. Performing Organization Address City/[facility] Phone Number [facility] CLIA: [id number] [place] [address] [place] [address] Lactate Dehydrogenase (02/04/2020 1:44 AM CDT) Pathologist Sig nature LDH 590 300 - 600 U/L [facility] LABORATORY Specimen Blood - ARM, LEFT Performing Organization Address [facility] Phone Number [facility] CLIA: [id number] [place] [address] Lactic Acid Whole Blood (02/04/2020 1:32 AM CDT) Pathologist Sig nature LACTIC ACID 1.60 mmol/L [facility] LABORATORY Specimen Blood - ARM, LEFT Performing Organization Address [facility] Phone Number [facility] CLIA: [id number] [place] [address] [place] [address] Drive COVID-19 (ID NOW RAPID TESTING) (02/03/2020 8:18 PM CDT) SARS-CoV-2 Rapid ID Not Detected Not Detected [facility] LABORATORY Specimen Swab - NASOPHARYNGEAL SWAB Narrative Performed At ID NOW COVID-19 Assay is an isothermal nucleic [facility] LABORATORY acid amplification test intended for the qualitative detection of nucleic acid from SARS-CoV-2 viral RNA in nasopharyngeal (AUTOMATIC LATHE OPERATOR) specimens. It is used under Emergency [...] indicated. Performing Organization Address City/State/Zipcode Phone Number [facility] CLIA: [id number] [place] [address] [address] ANGIOGRAM ABDOMEN/PELVIS (02/03/2020 6:30 PM [...] CDT) Pathologist Sig nature APPEARANCE Clear Clear [facility] LABOR[facility]ORY COLOR Yellow Yellow [facility] PH 6.0 4.8 - 8.0 [facility] LAB[facility] SP GRAVITY 1.013 1.003 - 1.030 [facility] LABOR[facility]ORY GLU U QUAL 150 mg/dL (A) Normal [facility] LABOR[facility] BLOOD 1+ (A) Negative [facility] LAB[facility] KETONES Negative Negative [facility] LAB[facility] PROTEIN 100 mg/dL (A) Negative [facility] LAB[facility]ORY UROBILIN Normal Normal [facility] BILIRUBIN Negative Negative [facility] NITRITE Negative Negative [facility] LAB[facility] LEUK PETER Negative Negative [facility] LAB[facility] RBC/HPF 3 0 - 3 HPF [facility] LAB[facility] WBC/HPF 1 0 - 5 HPF [facility] BACTERIA Negative Negative [facility] MUCOUS Slight (A) Negative LPF [facility] LABORATORY Specimen Urine - URINE, CLEAN CATCH Performing Organization Address [facility] Number [facility] CLIA: [id number] [place], [place] [address] LABORATORY [address] AMYLASE (02/03/2020 5:29 PM CDT) Pathologist Sig nature SERGIO 110 35 - 110 U/L [facility] LABORATORY Specimen Blood - VENOUS Performing Organization Address [facility] Number [facility] CLIA: [id number] [place] [id number] LABORATORY [address] URIC ACID (02/03/2020 5:29 PM CDT) Pathologist Sig nature URIC ACID 7.5 3.6 - 8.0 mg/dL [facility] LABORATORY Specimen Blood - VENOUS Performing Organization Address [facility] Phone Number [facility] CLIA: [id number] [place] [address] FERRITIN SERUM (02/03/2020 5:29 PM CDT) Pathologist Sig nature FERRITIN 20.4 18.0 - 464.0 ng/mL [facility] Specimen Blood - VENOUS Narrative Performed At Biotin has been reported to cause a negative [facility] LABORATORY bias, interpret results relative to patient's use of biotin. Performing Organization Address [facility]/Zipcode Phone Number [facility] CLIA: [id number] [place] [address] THYROID STIMULATING HORMONE (02/03/2020 5:29 PM CDT) Pathologist Sig nature TSH 3.40 0.45 - 4.70 mIU/L [facility] LABORATORY Specimen Blood - VENOUS Performing Organization Address [facility] Phone Number [facility] CLIA: [id number] [place] [address] Protein Total Serum (02/03/2020 5:29 PM CDT) Pathologist Sig [facility] T PROTEIN 7.0 6.3 - 8.2 g/dL [facility] LABORATORY Specimen Blood - VENOUS Performing Organization Address [facility] Phone Number [facility] CLIA: [id number] [place], [place] [address] LABORATORY [address] Glucose, Level (02/03/2020 5:29 PM CDT) Pathologist Sig nature GLUCOSE 220 (H) 70 - 110 mg/dL [facility] LABOR[facility]ORY Specimen Blood - VENOUS Performing Organization Address [facility] Phone Number [facility] CLIA: [id number] [place] [address] N-TERMINAL PRO-BNP (02/03/2020 5:29 PM CDT) Pathologist Sig nature NT-proBNP 2,300 (H) <=125 pg/mL [facility] LABOR[facility]ORY Specimen Blood - VENOUS Narrative Performed At [facility] has been reported to cause a negative [facility] LABORATORY bias, interpret results relative to patient's use of biotin. Performing Organization Address [facility] Phone Number [facility] CLIA: [id number] [place] [address] Prothrombin Time (PT) / INR (02/03/2020 5:29 PM CDT) PROTIME PATIENT 14.9 (H) 12.0 - 14.7 [facility] LABORATORY INR 1.2Comment: Normal [facility] INR <1.1; Warfarin [facility] Therapeutic range LABORATORY 2.0 to 3.0 or 2.5 to 3.5, depending upon the indications. Specimen Blood - VENOUS Performing Organization Address [facility] Phone Number [facility] CLIA: [id number] [place] [address] aPTT (02/03/2020 5:29 PM CDT) Pathologist Sig nature APTT Patient 29 23 - 38 Seconds [facility] LABORATORY Specimen Blood - VENOUS Narrative Performed At The [facility] patient population mean normal value [facility] LAB[facility]ORY for aPTT is 30 seconds. Performing Organization Address [facility] Phone Number [facility] CLIA: [id number] [place] [address] Troponin I (02/03/2020 5:29 PM CDT) Pathologist Sig nature TROPONIN I 0.034 <=0.034 ng/mL [facility] LABOR[facility]ORY Specimen Blood - VENOUS Narrative Performed At Equal or Less than 0.034 ng/ml---Normal [facility] LAB[facility] Note: Cardiac troponin begins to [...] patient's use of biotin. Performing Organization Address [facility] Phone Number [facility] CLIA: [id number] [place] [address] Lipase Serum (02/03/2020 5:29 PM CDT) Pathologist Sig nature LIPASE 180 0 - 220 U/L [facility] LABOR[facility]ORY Specimen Blood - VENOUS Performing Organization Address City/[facility] Phone Number [facility] CLIA: [id number] [place] [address] LABORATORY [address] [facility] Hepatic Function Panel (ALB, T.PRO, BILI T, BU/BC, ALT, AST, ALK PHOS) (02/03/2020 5:29 PM CDT) Pathologist Sig nature TOTAL BILI 0.4 0.1 - 1.1 mg/dL [facility] LAB[facility] BILI UNCON 0.5 0.1 - 1.1 mg/dL [facility] BILI CONJ 0.0 0.0 - 0.3 mg/dL [facility] T PROTEIN 7.4 6.3 - 8.2 g/dL [facility] ALBUMIN 3.9 3.5 - 5.0 g/dL [facility] LAB[facility] ALK PHOS 127 (H) 34 - 122 U/L [facility] ALTv 15 5 - 50 U/L [facility] AST(SGOT) 23 13 - 40 U/L [facility] Specimen Blood - VENOUS Performing Organization Address [facility] Phone Number [facility] CLIA: [id number] [place] [address] [place] [address] Basic Metabolic Panel (NA, K, CL, CO2, GLUCOSE, BUN, CREATININE, CA) (02/03/2020 5:29 PM CDT) Pathologist Sig nature NA 139 135 - 145 [facility] mmol/L [facility] LABORATORY K 3.8 3.5 - 5.0 [facility] mmol/L [facility] LABORATORY CL 105 98 - 108 mmol/L [facility] LAB[facility] CO2 TOTAL 23 23 - 31 mmol/L [facility] LAB[facility] AGAP 11 2 - 16 [facility] BUN 13 7 - 23 mg/dL [facility] GLUCOSE 223 (H) 70 - 110 mg/dL [facility] CREATININE 0.95 0.60 - 1.25 [facility] mg/dL [facility] LABORATORY CALCIUM 9.1 8.6 - 10.6 [facility] mg/dL [facility] eGFR Calculation 80.6 mL/min/1.73m2 [facility] ([facility] [place]) eGFR Calculation 97.7 mL/min/1.73m2 [facility] [place] [facility] Specimen Blood - VENOUS Narrative Performed At Association of Glomerular Filtration Rate (GFR) [facility] and Staging of Kidney Disease* + [...] tests). Performing Organization Address City/State/Zipcode Phone Number [facility] CLIA: [id number] [place], [place] [id number] LABORATORY [address] CBC with Differential (02/03/2020 5:29 PM CDT) [facility] WBC 6.92 4.20 - 10.70 [facility] 10*3/L [facility] RBC 3.09 (L) 4.26 - 5.52 [facility] 10*6/L [facility] HGB 9.0 (L) 12.2 - 16.4 [facility] g/dL [facility] HCT 27.2 (L) 38.4 - 49.3 % [facility] MCV 88.0 81.7 - 95.6 fL [facility] MCH 29.1 26.1 - 32.7 pg [facility] MCHC 33.1 31.2 - 35.0 [facility] g/dL [facility] RDW-SD 43.7 38.5 - 51.6 fL [facility] RDW-CV 13.7 12.1 - 15.4 % [facility] PLT 276 150 - 328 [facility] 10*3/L [facility] MPV 9.7 (L) 9.8 - 13.0 fL [facility] NRBC/100 WBC 0.0 0.0 - 10.0 /100 [facility] WBCs [facility] NRBC x10^3 <0.01 10*3/L [facility] GRAN MAT (NEUT) % 55.9 % [facility] IMM GRAN % 0.40 % [facility] LYMPH % 27.9 % [facility] MONO % 11.4 % [facility] EOS % 4.0 % [facility] BASO % 0.4 % [facility] GRAN MAT x10^3(ANC) 3.86 1.99 - 6.95 [facility] 10*3/uL [facility] IMM GRAN x10^3 0.03 0.00 - 0.06 [facility] 10*3/uL [facility] LYMPH x10^3 1.93 1.09 - 3.23 [facility] 10*3/uL [facility] MONO x10^3 0.79 0.36 - 1.02 [facility] 10*3/uL [facility] EOS x10^3 0.28 0.06 - 0.53 [facility] 10*3/uL [facility] BASO x10^3 0.03 0.01 - 0.09 [facility] 10*3/uL 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 of [...] ONCE, 1 dose, 02/04/20 at 1630, Routine, membership advisor approving Restricted medication: TERRI CASTILLO documented in this encounter Additional Health Concerns Infection Onset Date Last Indicated Resolved Time Contact- MRSA 08/18/2019 08/18/2019 COVID-19 Rule Out 02/03/2020 02/03/2020 02/03/2020 9: 30 PM CDT documented as of this encounter Insurance Payer Benefit Plan / Subscriber ID Effective Dates Phone Addre ss Type Group Cash Check Card [id number] 2018-Present Medicare Adv spring HMO documented as of this encounter Advance Directives Name Relationship Healthcare Agent Communication Relationship Rose Desouza Mother Health Care Agent
--- OUTSIDE RECORDS SUMMARY | 2020-04-20 10:08 | XMS REPORT | Summary of Care ---
:1960 Author Organization [facility] Address [address] [place] [id number] Care Team Providers Name Role Phone Mario Nika Simmons Primary Care Provider [facility] Insurance Hmo Reason for Visit Reason Comments Transition Of Care Encounter Details Date Type Department Care Team Description 02/06/2020 [facility] [address] [address] Allergies No Known Allergiesdocumented as of this [...] tabletIndications: mouth daily. Coronary artery disease involving [place] coronary artery of [place] heart with angina pectoris levothyroxine 50 mcg Take 1 tablet by 30 tablet 0 02/05/2020 Active tabletIndications: mouth every Coronary artery morning. disease involving [place] coronary artery of [place] heart with angina pectoris tamsulosin 0.4 mg 24 Take 1 capsule by 30 capsule 0 02/05/2020 Active hr mouth daily. capsuleIndications: Coronary artery disease involving [place] coronary artery of [place] heart with angina pectoris venlafaxine 75 mg Take 1 tablet by 30 tablet 0 02/05/2020 Active tabletIndications: mouth 2 (two) times Coronary artery daily. disease involving [place] coronary artery of [place] heart with angina pectoris glipiZIDE 5 mg Take 1 tablet by 60 tablet 0 02/05/2020 Active tabletIndications: mouth 2 (two) times Coronary artery daily before disease involving breakfast and [place] coronary dinner. artery of [place] heart with angina pectoris metoprolol succinate Take 1 tablet by 60 tablet 1 02/05/2020 Active XL 25 mg 24 hr mouth 2 (two) times tabletIndications: daily. Coronary artery disease involving [place] coronary artery of [place] heart with angina pectoris furosemide 40 mg Take 1 tablet by 60 tablet 0 02/05/2020 Active tabletIndications: mouth every morning Coronary artery and evening. disease involving [place] coronary artery of [place] heart with angina pectoris KCL 20 mEq Take 1 tablet by 30 tablet 1 02/06/2020 A ctive tabletIndications: mouth daily. Coronary artery disease involving [place] coronary artery of [place] heart with angina pectoris atorvastatin 40 mg [...] myocardial infarction) 019 Coronary artery disease involving [place] coronary chandan ry of [place] heart 01/17/2019 with angina pectoris Type 2 [...] TRANSITIONAL CARE MANAGEMENT ASSESSMENT 02/06/2020 Ernie Rooney [id number] Ernie Rooney is a 59 year old /White male was admitted on 02/03/20 to [facility], [facility] MED SURG. He was discharged on 02/05/20 with discharge disposition of HR- Routine Discharge. Admitting Physician: Coral Leblanc Discharge Diagnosis: Acute on chronic abdominal pain Linked Episodes Type: Episode: Status: Noted: Resolved: Last update: Updated by: TRANSITION OF CARE TCM Active 02/05/2020 02/06/2020 11:48 AM Rico Aleman RN Comments: TCM [id number] outreach documentation: Discharge Assessment Chart Assessed: 02/06/20 Chart Reviewed - Post Discharge Call Deferred due to Change in Discharge Status.: Discharged to SNF([facility]) TCM Outreach Completed: 02/06/20 Future Appointments: [...] of this encounter Implants Implanted Type Area Kitchen Lead Device 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 PACEM[employer]ER [id number] / [employer] [id number] / Pacemaker Metal Bar-05/22/1994 Back Implanted: 05/22/1994 [...] Effective Dates Phone Addre ss Type Group Cardiovascular Decisions [id number] 2018-Present Medicare Adv [place] HMO documented as of this encounter Advance Directives Name Relationship Healthcare Agent Communication Relationship Rose Desouza Mother Health Care Agent
--- OUTSIDE RECORDS SUMMARY | 2020-04-20 10:08 | XMS REPORT | Summary of Care ---
:1960 Author Organization [facility] - [facility] Address [address] [place] [address] Care Team Providers Name Role Phone Nika Martin Primary Care Provider [facility] Insurance Hmo Nena Aviles DO Him Tech Reason for Visit Auth/Cert Status Reason Specialty Diagnoses / Referred By Referred To Procedures Contact Contact Emergency Medicine [facility] Em ergency Dept [address] [place] [address] Fax: Encounter Details Date Type Department Care Team Description 03/18/2020 Anesthesia [facility] OR Stephanie Franks MD [address] [place] [address] [id number] [place], [place] [id number] Department Caio Najera, DO [address] [place] [address]. [place] [phone] [address] [place] [id number] Allergies No Known Allergiesdocumented as of this encounter (statuses as of 03/19/2020) Medications Medication Sig Dispensed Refills Start Date End Date Status apixaban 5 mg Take 1 tablet by 60 tablet 2 02/05/2020 Suspended tabletIndications: mouth 2 (two) atrial fibrillation times daily. Indications: atrial fibrillation Additional Information clopidogreL 75 mg Take 1 tablet by 30 tablet 2 02/05/2020 Suspended tabletIndications: NSTEMI mouth daily. (non-ST elevated myocardial infarction) Additional Information nitroglycerin 0.[address] 1 tablet under 1 Bottle 2 02/05/2020 Suspended tabletIndications: Chest pain, the tongue every 5 unspecified type (five) minutes as needed for Chest pain. Additional Information pantoprazole 20 mg EC Take 1 tablet by 30 tablet 1 02/05/2020 Suspended tabletIndications: Unstable mouth daily. angina pectoris Additional Information lisinopriL 2.5 mg Take 1 tablet by 30 tablet 0 02/05/2020 Suspended tabletIndications: Coronary mouth daily. artery disease involving karuk coronary artery of kar[place] heart with angina pectoris Additional Information levothyroxine 50 mcg Take 1 tablet by 30 tablet 0 02/05/2020 Suspended tabletIndications: Coronary mouth every morning. artery disease involving karuk coronary artery of kar[place] heart with angina pectoris Additional Information tamsulosin 0.4 mg 24 hr Take 1 capsule by 30 capsule 0 020 Suspended capsuleIndications: Coronary mouth daily. artery disease involving karuk coronary artery of kar[place] heart with angina pectoris Additional Information venlafaxine 75 mg Take 1 tablet by 30 tablet 0 02/05/2020 Suspended tabletIndications: Coronary mouth 2 (two) times artery disease involving karuk daily. coronary artery of karuk heart with angina pectoris Additional Information glipiZIDE 5 mg Take 1 tablet by 60 tablet 0 02/05/2020 Suspended tabletIndications: Coronary mouth 2 (two) times artery disease involving daily before karuk coronary artery of breakfast and karuk heart with angina dinner. pectoris Additional Information metoprolol succinate XL 25 mg Take 1 tablet by 60 tablet 1 Suspended 24 hr tabletIndications: mouth 2 (two) times Coronary artery disease daily. involving karuk coronary artery of karuk heart with angina pectoris Additional Information furosemide 40 mg Take 1 tablet by 60 tablet 0 02/05/2020 Suspended tabletIndications: Coronary mouth every morning artery disease involving and evening. karuk coronary artery of kar[place] heart with angina pectoris Additional Information KCL 20 mEq tabletIndications: Take 1 tablet by 30 tablet 1 Suspended Coronary artery disease mouth daily. involving karuk coronary artery of kar[place] heart with angina pectoris Additional Information atorvastatin 40 mg Take 1 tablet by 30 tablet 0 02/05/2020 Suspended tabletIndications: Unstable mouth at bedtime. angina pectoris Additional Information documented as of this encounter (statuses as of 03/19/2020) Active Problems Problem Noted Date Osteomyelitis 03/16/2020 Preop cardiovascular exam 03/16/2020 Chronic diastolic congestive heart failure 03/16/2020 KALYN (acute kidney injury) 03/16/2020 Left foot pain 03/15/2020 Overview: Added automatically from request for erick glass [id number] Troponin I above reference range 02/05/2020 Pleural effusion 02/04/2020 Elevated brain natriuretic peptide (BNP) level Chest pain in adult 02/03/2020 Cellulitis of left foot 11/16/2019 Pacemaker 08/07/2019 PAF (paroxysmal atrial fibrillation) 08/07/2019 Abdominal pain 07/18/2019 Pacemaker malfunction 06/25/2019 Cellulitis 04/09/2019 Arteriovenous fistula of right femoral vessels 019 NSTEMI (non-ST elevated myocardial infarction) 019 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 Food Insecurity Answer Date Recorded Within the past 12 months, you worried that your food Someti mes true 03/16/2020 would run out before you got money to buy more. Within the past 12 months, the food you bought just Sometime s true 03/16/2020 didn't last and you didn't have money to get more. Transportation Needs Answer Date Recorded In the past 12 months, has lack of transportation kept you f rom Yes 03/16/2020 medical appointments or from getting medications? In the past 12 months, has lack of transportation kept you f rom Yes 03/16/2020 meetings, work, or getting things needed for daily living? Sex Assigned at Date Recorded Not on file COVID-19 Exposure Response Date Recorded In the last month, have you been in contact with No / Unsure 03/15/2020 11:39 PM CDT someone who was confirmed or suspected to have Coronavirus / COVID-19? documented as of this encounter Last Filed Vital Signs Not on filedocumented in this encounter OR Notes Anesthesia Postprocedure Evaluation - Stephanie Franks MD - 03/18/2020 5:36 PM CDT Patient: Ernie Rooney Procedure Summary Date: 03/18/20 Room / Location: [place] [address] [facility] Anesthesia Start: 1352 Anesthesia Stop: 1641 Procedure: BELOW THE KNEE AMPUTATION (Left Leg) Diagnosis: Left foot pain (Left foot pain [M79.672]) Surgeon: Tato Esquivel MD Responsible Provider: Stephanie Franks MD Anesthesia Type: General ASA Status: 4 Anesthesia Type: General Last vitals BP 110/82 (03/18/201729) Temp 36.8 C (98.3 F) (03/18/20 1645) Pulse 81 (03/18/201729) Resp 14 (03/18/201729) SpO2 100 % (03/18/201729) No complications documented. Anesthesia Post Evaluation Patient location during evaluation: PACU Patient participation: complete - patient participated Level of consciousness: awake and alert Pain management: satisfactory to patient Airway patency: patent Cardiovascular status: acceptable and blood pressure returned to baseline Respiratory status: acceptable Hydration status: acceptable Anesthesia Procedure Notes - Travis Matias MD - 03/18/2020 1:54 PM CDT Associated Order(s): Nerve Block Nerve Block Procedure: Femoral Nerve Block and Other Peripheral Nerve Laterality: Left Surgical Anesthesia: no Start Time: 03/18/2020 1:30 PM End Time: 03/18/2020 1:55 PM Post Op Pain Management requested by surgeon per surgical: OR Posting Anesthesiologist: Travis Matias MD Resident/RETAIL EVENT AND SALES ASSISTANT: Cade Pereyra MDPerformed by: resident/RETAIL EVENT AND SALES ASSISTANT Preanesthetic timeout completed prior to procedure: patient identified,IV checked, site marked, risks and benefits discussed, surgical consent, monitors and equipment checked, pre-op evaluation, timeout performed Patient position: Supine. Sterile Prep/Drape: Yes Monitoring: continuous pulse ox, blood pressure and ECG Injection Technique: single-shot Needle Type: Stimuplex Needle Gauge: 22 G Needle Length: 3.5 Number of Attempts: 1 Technique: Ultrasound guided, Negative aspiration and Intermittent aspiration during injection Sensory Effect: Adequate Events: Negative Aspiration, No paresthesia on incremental injection, No symptoms of intraneural or IV injection, Local anesthetic solution visualized around nerve and Patient tolerated procedure well Medications Given: Regional: Bupiv 0.25% 55 mL EPI 1:200K Additional Notes:Left Fem/pop nerve block Femoral nerve and sciatic nerve via pop approach usg nesthesia Preprocedure Evaluation - Devin Logan MD - 03/17/2020 9:52 PM CDT Name/ MRN / Age / Gender: Ernie Rooney, [id number] 59 year old male BMI: Estimated body mass index is 27.41 kg/m as calculated from the following: Height as of this encounter: 1.702 m (5' 7"). Weight as of this encounter: 79.4 kg (175 lb). Allergies: Patient has no known allergies. Last Vitals: BP Readings from Last 1 Encounters: 03/17/20 114/68 Pulse Readings from Last 1 Encounters: 03/17/20 90 SpO2 Readings from Last 1 Encounters: 03/17/20 100% Date of Surgery: 03/18/2020 Surgeon: Tato Esquivel MD Procedure: BELOW THE KNEE AMPUTATION (Left Leg) OR Location: [facility] Location Anesthesia Preop Eval (physical exam) Copied forward and updated from: 03/16/20 Anesthesia Preop: Chart Review and [id number] NPO Status Verified Clear Liquids: > 2 Hours Solid Food/Non-Clear Liquids: > 8 Hours PONV Risk Factors: non-smoker and post-op opiate use anticipated PONV Risk Score: 2 Anesthesia History Anesthesia History Negative Previous Anesthetics/Airways Cardiovascular METS: <3 METS Comments: Pt reports being out of breath from walking short distances (+) Patient reports hx of cardiac problems (+) Patient reports cardiac eval within past 5 years Director Professional Services's name/number: Juanpablo (+) Hypertension (Meds held currently for lower BP) and on beta ulises therapy (+) Dyslipidemia (+) Hx of echocardiogram within past 5 years (+) Echocardiogram results (55-65%) diastolic dysfunction and valves normal EF: 55-65% (+) Hx of cardiac cath (06/25/2019: Left main no stenosis, LAD patent stent, Circumflex moderate disease, RCA 3 new stents placed) (+) Recent EKG (02/03/2020 V paced, 08/13/2019 no V Paced) (+) Patient reports prior UT (X5 last UT 2018) (+) CAD (CABG 2002, Stents most recently 2019), S/P CABG and S/P Stent (+) Dysrhythmias and atrial fibrillation (+) Pt reports prior cardiac surgery and CABG (+) Cardiovascular devices present and pacemaker (+) PVD (+) CHF NYHA Classification: II Pulmonary Negative Pulmonary ROS (-) COPD (-) Asthma (-) Tobacco use Tobacco Quit Date: 2011 (-) Cigarette use (-) COVID-19 within the past 6 weeks (-) Influenza within the past 6 weeks (-) Pneumonia within the last 6 weeks (-) Recent bronchitis or URI Neuro/Musculoskeletal (+) CVA (residual left sided weakness) (+) Chronic pain: (limited neck mobility) Chronic Opioid Use: No GI/Hepatic Comments: Gastroparesis (+) GERD and can lay flat without symptoms (+) Hepatitis (reports episode 20 years ago) Hematology Comments: HGB (g/dL) Date Value 03/17/2020 8.0 (L) 03/17/20 0402 PLT 334* 2u PRBC on hold for procedure on 03/18/20 (ordered 03/17/20) (+) Anemia Renal Comments: K (mmol/L) Date Value 03/17/2020 3.9 CREATININE (mg/dL) Date Value 03/17/2020 1.16 (+) Patient reports kidney problems (+) Renal disease Skin (+) Current IV access Endo/Other (+) Diabetes Mellitus, Type 2 and Rx Insulin (+) Hypothyroidism Other (-) Tobacco use Tobacco Quit Date: 2011 (-) Cigarette use (-) Alcohol use (Quit 2012) 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 Hold on DOS. Anticoagulant Therapy: Defer to surgeons Phentermine: Alert [facility] anesthesiologist MAC Cases: Continue taking ARABELLA inhibitors and ARBs ASA Classification ASA: 4 Current Medications: No outpatient medications have been marked as taking for the 03/15/20 encounter (Hospital Encounter). Previous Surgeries: Past Surgical History: Procedure Laterality Date BACK SURGERY 1997 for impinged nerve & herniated disk CHOLECYSTECTOMY 2004 CORONARY ARTERY BYPASS GRAFT [address]; for bradycardia SC CSI ANY OTHER THAN PCI 2 YR 2018 SC REMOVAL OF KIDNEY STONE 2009 Anesthesia Physical Exam General alert and oriented x 3 Neuro/Psych nonfocal Dental lower dentures and upper dentures Abdominal (+) abdomen soft Airway Mallampati score:II TM distance:> 5 cm Neck ROM: full Mouth opening:normal Extremity Pulmonary bilateral clear to auscultation Other Cardiovascular Rhythm:regular Rate: normal Anesthesia Plan ASA Status: 4 Plan discussed during pre-op evaluation: General Anesthetic plan on DOS: General Plan to include: LMA Anesthesia plan discussed with: patient or applications sales representative Post-Operative Analgesia: routine analgesia & antiemetics Recovery Plan: PACU Additional comments: documented in this encounter Miscellaneous Notes Addendum Note - Travis Matias MD - 03/19/2020 11:35 AM CDT Addendum created 03/19/20 1135 by Travis Matias MD Attestation recorded in Intraprocedure, Clinical Note Signed, Flowsheet accepted, Intraprocedure Attestations filed, Intraprocedure Blocks edited documented in this encounter Plan of Treatment Health Maintenance Due Date Last Done Comments EYE EXAM 1968 URINE MICROALBUMIN 1968 Depression Screening 1970 DTaP,Tdap,and Td Vaccines (1 - 1977 03/29/2019 Tdap) COLON CANCER SCREENING ANNUAL 2008 FIT/FOBT COLON CANCER SCREENING FIT DNA 2008 EVERY 3 YEARS COLON CANCER SCREENING 2008 SIGMOIDOSCOPY EVERY 5 YEARS COLONOSCOPY 2008 Colorectal Cancer Screening 2008 LUNG CANCER SCREEN: Recommended 2013 for age 55-80 with 30 + pack year history PNEUMOCOCCAL 0-64 YEARS COMBINED 02/18/2019 02/18/2018 SERIES (2 of 3 - PCV13) FOOT EXAM 08/29/2019 08/28/2018, 08/28/2018 Zoster Recombinant Vaccine 09/11/2019 07/17/2019 (SHINGRIX) (2 of 2) INFLUENZA VACCINE (#1) 2020 02/18/2018, 03/19/2008 HgA1C 09/14/2020 03/16/2020, 11/16/2019, 08/06/2019, Additional history exists LDL-C 03/16/2021 03/16/2020, 02/04/2020, 08/06/2019, Additional history exists CREATININE (SERUM) 03/18/2021 03/18/2020, 03/18/2020, 03/17/2020, Additional history exists HEPATITIS C (HCV) SCREEN Completed 08/29/2018 documented as of this encounter Implants Implanted Type Area Engineering Executive Device 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 PACEMAKER [id number] / Assurity [id number] / Pacemaker Metal Bar-05/22/1994 Back Implanted: 05/22/1994 (Quantity not on file) Metal Bar-05/22/2002 Arm Implanted: 05/22/2002 (Quantity not on file) documented as of this encounter Procedures Procedure Name Priority Date/Time Associated Diagnosis Comme nts NERVE BLOCK Routine 03/18/2020 1:54 PM Results for this CDT procedure are i n the results section . documented in this encounter Results Nerve Block (03/18/2020 1:54 PM CDT) Narrative Performed At Travis Matias MD 03/19/2020 11:3 2 AM Nerve Block Procedure: Femoral Nerve Block and Other Peripheral Nerve Laterality: Left Surgical Anesthesia: no Start Time: 03/18/2020 1:30 PM End Time: 03/18/2020 1:55 PM Post Op Pain Management requested by erick saleem per surgical: OR Posting Anesthesiologist: Travis Matias MD Resident/RETAIL EVENT AND SALES ASSISTANT: Cade Pereyra MDPerforme d by: resident/RETAIL EVENT AND SALES ASSISTANT Preanesthetic timeout completed prior to procedure: pa tient identified,IV checked, site marked, risks and benefits discussed, surgical consent, monitors and equipment checked, pre-op e valuation, timeout performed Patient position: Supine. Sterile Prep/Drape: Yes Monitoring: continuous pulse ox, blood p ressure and ECG Injection Technique: single-shot Needle Type: Stimuplex Needle Gauge: 22 G Needle Length: 3.5 Number of Attempts: 1 Technique: Ultrasound guided, Negative a spiration and Intermittent aspiration during injection Sensory Effect: Adequate Events: Negative Aspiration, No paresthesia on increme ntal injection, No symptoms of intraneural or IV injection, Local anesthetic solution visualized around nerve and Patient tole rated procedure well Medications Given: Regional: Bupiv 0.25% 55 mL EPI 1:200K Additional Notes:Left Fem/pop nerve bloc k Femoral nerve and sciatic nerve via pop approach usg ___ __ documented in this encounter Administered Medications Medication Order MAR Action Action Date Dose Rate Site ondansetron (ZOFRAN (PF)) injection Given 03/18/2020 4:08 PM CD T 4 mg 4 mg 4 mg, Slow IV Push, Q6HPRN, Starting 03/16/20 at 0233, Until Discontinued, Routine, Nausea and Vomiting (N/V) Given 03/17/2020 5:59 AM CDT 4 mg Given 03/16/2020 12:19 PM CDT 4 mg Medication Order MAR Action Action Date Dose Rate Site acetaminophen ADULT (OFIRMEV) Given 03/18/2020 3:18 PM CDT 1,00 0 mg injection Administer over 15 Minutes, ONCE INTRA PROCEDURE, Starting Mon03/18/20 at 1518, Until Mon03/18/20 at 1642, Routine, Intra-op albumin (ALBUMINAR-5) 5 % injection New Bag 03/18/2020 2:30 PM CDT CONTINUOUS PRN, Starting Mon03/18/20 at 1430, Until Mon03/18/20 at 1642, Intra-op bupivacaine (preserv free) (SENSORCAINE MPF) Given 1:38 PM CDT 25 mL 0.25 % (2.5 mg/mL) injection ONCE INTRA PROCEDURE, Starting Mon03/18/20 at 1338, Until Mon03/18/20 at 1642, Routine, Intra-op Given 03/18/2020 1:30 PM CDT 30 mL dexamethasone (DECADRON PHOSPHATE) injec tion Given 03/18/2020 2:36 PM CDT 10 mg ONCE INTRA PROCEDURE, Starting Mon03/18/20 at 1436, Until Mon03/18/20 at 1642, Routine, Intra-op dexMEDEtomidine (PRECEDEX) injection Given 03/18/2020 4:39 PM CDT 10 mcg ONCE INTRA PROCEDURE, Starting Mon03/18/20 at 1639, Until Mon03/18/20 at 1642, Routine, Intra-op FENTanyl PF (SUBLIMAZE (PF)) injection Given 03/18/2020 2:40 PM CDT 50 mcg ONCE INTRA PROCEDURE, Starting Mon03/18/20 at 1427, Until Mon03/18/20 at 1642, Routine, Intra-op Given 03/18/2020 2:27 PM CDT 50 mcg HYDROmorphOne (DILAUDID) injection Given 03/18/2020 3:35 PM CDT 0.4 mg ONCE INTRA PROCEDURE, Starting Mon03/18/20 at 1515, Until Mon03/18/20 at 1642, Routine, Intra-op Given 03/18/2020 3:15 PM CDT 0.2 mg Given 03/18/2020 2:45 PM CDT 0.2 mg lactated ringers IV infusion New Bag 03/18/2020 1:15 PM CDT CONTINUOUS PRN, Starting Mon03/18/20 at 1315, Until Mon03/18/20 at 1642, Routine, Intra-op lidocaine 1% (XYLOCAINE) 100 mg/10 mL (1 %) Given 03/18/2020 1:55 PM CDT 50 mL injection ONCE INTRA PROCEDURE, Starting Mon03/18/20 at 1355, Until Mon03/18/20 at 1642, Routine, Intra-op meropenem (MERREM) 500 mg in NaCl 0.9% New Bag 03/18/2020 2:21 PM CDT 500 mg (NS) 100 mL IV piggyback CONTINUOUS PRN, Starting Mon03/18/20 at 1421, Until Mon03/18/20 at 1642, 100 mL, Intra-op midazolam (VERSED) injection Given 03/18/2020 1:22 PM CDT 2 mg ONCE INTRA PROCEDURE, Starting Mon03/18/20 at 1322, Until Mon03/18/20 at 1642, Routine, Intra-op PHENYLephrine 1000 mcg/10 mL in 0.9% NaCl Given 03/18/2020 3:59 PM CDT 100 mcg syringe ONCE INTRA PROCEDURE, Starting Mon03/18/20 at 1409, Until Mon03/18/20 at 1642, Routine, Intra-op Given 03/18/2020 2:38 PM CDT 200 mcg Given 03/18/2020 2:26 PM CDT 100 mcg PHENYLephrine 1000 mcg/10 Rate Change 03/18/2020 4:26 0.5 mcg/kg/ min 23.82 mL/hr mL in 0.9% NaCl syringe PM CDT CONTINUOUS PRN, Starting Mon03/18/20 at 1409, Until Mon03/18/20 at 1642, Routine, Intra-op Rate Change 03/18/2020 4:15 PM CDT 1 mcg/kg/min 47.64 mL/hr Rate Change 03/18/2020 4:06 PM CDT 0.9 mcg/kg/min 42.88 mL/hr propofoL IV infusion Given 03/18/2020 1:55 PM CDT 200 mg ONCE INTRA PROCEDURE, Starting Mon03/18/20 at 1355, Until Mon03/18/20 at 1642, Routine, Intra-op documented in this encounter Additional Health Concerns Infection Onset Date Last Indicated Resolved Time Contact- MRSA 08/18/2019 08/18/2019 documented as of this encounter Insurance Payer Benefit Plan / Subscriber ID Effective Dates Phone Addre ss Type Group [employer] [id number] 2018-Present Medicare Adv spring [place] ([place]) [place] [address] documented as of this encounter Advance Directives Name Relationship Healthcare Agent Communication Relationship Rosenorberto Desouza Mother Health Care Agent
--- OUTSIDE RECORDS SUMMARY | 2020-04-20 10:13 | XMS REPORT | Summary of Care ---
:1960 Author Organization [facility] Address [address] [place] [id number] Care Team Providers Name Role Phone Fransisco Elam Primary Care Provider [facility] Insurance Hmo Nena Aviles DO Balance Screwhead Polisher Reason for Referral (Routine) Status Reason Specialty Diagnoses / Referred By Referred To Procedures Contact Contact New Request Occupational Diagnoses Osteomyelitis of left foot, unspecified type Tato Esquivel Therapy Procedures CONSULT/REFERRAL OCCUPATIONAL THERAPY MD Dilip [address] [place] [address] [place] [address] (Routine) Status Reason Specialty Diagnoses / Referred By Referred To Procedures Contact Contact New Request Diagnoses Osteomyelitis of left foot, unspecified type Tato Esquivel Ja yendra K Procedures Discharge Follow-up: PCP FRANSISCO ELAM; 1 Week MD Dilip [address] [place], [place] [phone] Phone: Fax: (Routine) Status Reason Specialty Diagnoses / Referred By Referred To Procedures Contact Contact New Request ERICK-SURGERY Diagnoses Osteomyelitis of left foot, unspecified type Tato Esquivel Procedures Discharge Follow-Up: Specialty Service ERICK-SURGERY (Dr Esquivel); 2 Weeks MD Dilip [address] [place] [address] [place] [address] (Routine) Status Reason Specialty Diagnoses / Referred By Referred To Procedures Contact Contact New Request Diagnoses Osteomyelitis of left foot, unspecified type Walker, Umberto Rodas Procedures Discharge Follow-up: PCP FRANSISCO ELAM; 1 Week MD Dilip [address] [place], [place], [place] [phone] Phone: Fax: (Routine) Status Reason Specialty Diagnoses / Referred By Referred To Procedures Contact Contact New Request Physical Therapy Diagnoses Osteomyelitis of left foot, unspecified type Walker, Tato Procedures CONSULT/REFERRAL PHYSICAL THERAPY MD Dilip [address] [place] [address] [place] [address] Radiology Services (Routine) Status Reason Specialty Diagnoses / Referred By Referred To Procedures Contact Contact New Request Diagnostic Diagnoses KORY (acute kidney injury) Kandis Hough, Radiology Procedures US RETROPERITONEAL COMPLETE [address] [place] [phone] Radiology Services (TENZIN) Status Reason Specialty Diagnoses / Referred By Referred To Procedures Contact Contact New Request Diagnostic Diagnoses Chest pain in adult Kandis Hough, Radiology Procedures XR CHEST 1 VW XR CHEST [address] [place] [phone] (Routine) Status Reason Specialty Diagnoses / Referred By Referred To Procedures Contact Contact New Request Vascular Procedures Kandis Hough, Sonography DUPLEX SCAN GRAFT [address] [place] [phone] (Routine) Status Reason Specialty Diagnoses / Referred By Referred To Procedures Contact Contact New Request Vascular Procedures Kandis Hough, Sonography EVIE MULTI LEVEL BY VASCULAR LAB [address] [place] [phone] MRI/CAT Scan (TENZIN) Status Reason Specialty Diagnoses / Referred By Referred To Procedures Contact Contact New Request Diagnostic Diagnoses Left foot pain Osteomyelitis of left foot, unspecified type Gas gangrene Kandis Hough, Radiology Procedures CT FOOT LEFT WO CONTRAST [address] [place] [phone] Radiology Services (STAT) Status Reason Specialty Diagnoses / Referred By Referred To Procedures Contact Contact New Request Diagnostic Diagnoses Left foot pain Jameson Mejia, Radiology Procedures XR FOOT <3 VW LEFT DO [address] [place] [address]. [address] [place] [address] Reason for Visit Reason Comments Wound diabetic foot wound on left foot. Auth/Cert Status Reason Specialty Diagnoses / Referred By Referred To Procedures Contact Contact Emergency Medicine [facility] Dept [address] [place] [address] Fax: Encounter Details Date Type Department Care Team Description 03/15/2020 - Hospital Encounter Neurology/Neurologi Tamir Mejia, DO [address] [place] [address]. [address] [place], [place] [phone] Osteomyelitis 03/26/2020 uriel Surgery (Kandis Mae MD [address] [place] [phone] 11B) Tato Esquivel MD [address] [place] [phone] [place], [place] [phone] Allergies No Known Allergiesdocumented as of this encounter (statuses as of 03/26/2020) Medications Medication Sig Dispensed Refills Start Date End Date Status apixaban 5 mg Take 1 tablet by 60 tablet 2 02/05/2020 Active tabletIndications: mouth 2 (two) atrial fibrillation times daily. Indications: atrial fibrillation clopidogreL 75 mg [...] tabletIndications: mouth daily. 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 disease involving alatna coronary artery of alatna heart with angina pectoris tamsulosin 0.4 mg 24 Take 1 capsule by 30 capsule 0 02/05/2020 Active hr mouth daily. capsuleIndications: Coronary artery disease involving alatna coronary artery of alat[place] heart with angina pectoris venlafaxine 75 mg Take 1 tablet by 30 tablet 0 02/05/2020 Active tabletIndications: mouth 2 (two) Coronary artery times daily. disease involving alatna coronary artery of al[place]na heart with angina pectoris glipiZIDE 5 mg Take 1 tablet by 60 tablet 0 02/05/2020 Active tabletIndications: mouth 2 (two) Coronary artery times daily before disease involving breakfast and alatna coronary dinner. artery of alatna heart with angina pectoris metoprolol succinate Take 1 tablet by 60 tablet 1 02/05/2020 Active XL 25 mg 24 hr mouth 2 (two) tabletIndications: times daily. 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 alatna coronary artery of alatna heart with angina pectoris KCL 20 mEq Take 1 tablet by 30 tablet 1 02/06/2020 A ctive tabletIndications: mouth daily. 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 Unstable angina pectoris acetaminophen 325 mg Take 2 tablets by 240 tablet 11 03/26/2020 03/26/2021 Active tabletIndications: mouth every 6 Osteomyelitis of (six) hours. left foot, unspecified type aspirin 81 mg Take 1 tablet by 0 03/27/2020 Active chewable mouth daily. tabletIndications: Osteomyelitis of left foot, unspecified type insulin NPH 100 inject 5 Units 5 Vial 1 03/26/2020 Active unit/mL under the skin injectionIndications every morning and : Osteomyelitis of at bedtime. left foot, unspecified type levoFLOXacin 750 mg Take 1 tablet by 9 tablet 0 03/26/2020 Active tabletIndications: mouth every 24 Osteomyelitis of (twenty-four) left foot, hours for 9 days. unspecified type documented as of this encounter (statuses as of 03/26/2020) Active Problems Problem Noted Date Osteomyelitis 03/16/2020 Preop cardiovascular exam 03/16/2020 Chronic diastolic congestive heart failure 03/16/2020 KORY (acute kidney injury) 03/16/2020 Left foot pain 03/15/2020 Overview: Added automatically from request for erick glass [id number] Troponin I above reference range 02/05/2020 Pleural effusion 02/04/2020 Elevated brain natriuretic peptide (BNP) level 020 Chest pain in adult 02/03/2020 Cellulitis of left foot 11/16/2019 Pacemaker 08/07/2019 PAF (paroxysmal atrial fibrillation) 08/07/2019 Abdominal pain 07/18/2019 Pacemaker malfunction 06/25/2019 Cellulitis 04/09/2019 Arteriovenous fistula of right femoral vessels 019 NSTEMI (non-ST elevated myocardial infarction) 019 Coronary artery disease involving alatna coronary chandan ry of alatna heart 01/17/2019 with angina pectoris Type 2 [...] as of this encounter (statuses as of 03/26/2020) Immunizations Name Administration Dates Next Due Influenza Virus Vaccine 02/18/2018, 03/19/2008 Pneumococcal Polysaccharide, PPSV23 (PNEUMOVAX) 02/18/2018 Td 03/29/2019 Zoster Vaccine Recombinant 07/17/2019 documented as of this encounter Social History Tobacco Use Types Packs/Day Years Used Date Former Smoker Cigarettes Quit: 2016 Smokeless Tobacco: Never Used Tobacco Cessation: Counseling Given: No Comments: quit 4 years ago Alcohol Use [...] Sign Reading Time Taken Comments Blood Pressure 101/67 03/26/2020 3:36 PM LIFE SCIENCES TEACHER Pulse 86 03/26/2020 3:36 PM LIFE SCIENCES TEACHER Temperature 36.4 C (97.5 F) 03/26/2020 3:36 PM LIFE SCIENCES TEACHER Respiratory Rate 18 03/26/2020 3:36 PM LIFE SCIENCES TEACHER Oxygen Saturation 97% 03/26/2020 3:36 PM LIFE SCIENCES TEACHER Inhaled Oxygen Concentration - - Weight 79.4 kg (175 lb) 03/17/2020 7:50 PM CDT Height 170.2 cm (5' 7") 03/17/2020 7:50 PM CDT Body Mass Index 27.41 03/17/2020 7:50 PM CDT documented in this encounter Discharge Instructions AttachmentsThe following attachments cannot be sent through Care Everywhere.APRIL Wrap (Japanese)Diabetes and Peripheral Arterial Disease (PAD) (Japanese)Diabetes, Carbohydrates, Fats, and Protein, Understanding (Japanese)Diabetes, Diet (Japanese)Heart Disease, Diabetes and (Japanese)Hypertension, Established (Japanese)Pain, Acute, Uncertain Cause (Japanese)After Amputation, Taking Care of Your Limb (Japanese)Amputation Surgery, Lower Body Strengthening After (Japanese) Amputation Surgery, Managing Pain After (Japanese)Amputation Surgery, Your (Japanese)Stump Wrapping, Below the Knee, Discharge Instructions (Japanese) Levofloxacin tablets (Japanese)Acetaminophen tablets or caplets (Japanese) documented in this encounter Progress Notes Samara Cason RN - 03/26/2020 3:13 PM LIFE SCIENCES TEACHER Care Management Discharge Disposition Note (DCDN) -2-1 Interventions: Disease specific education;Intensive medication reconciliation/management;Teachback;Clear discharge plan;Follow-up appointments -2-1 Providers: Physician;Materials Engineering Technician/Production Troubleshooter;Nurse -2-1 Patient Capacity Improvements: Transportation arrangements Discharge Plan for ongoing care and services: Care Home Facility (SNF) Patient Choice completed for referred services: Yes Discussed with patient/patients family involved in decision making: Patient or family caregiver understands, and agrees with discharge plan Patient's family or support contact: Rose Desouza, mother ([phone]) Discharge Plan: Care Home Facility (SNF) DME location: Durable Medical Equipment: Home Health location: Discharge location(s): [facility] location: [place] [address] () [phone] () [phone] Community resources/referrals made or provided to patient: No Resources/Referrals: Mental Status: Alert & Oriented to Person,Place & Time Psychosocial issues and/or concerns resulting in patient being a high risk for re-admission: Lack ofsocial support Manage ADL indepentdly: Yes Living Arrangement: Home Address of living arrangement: [address] [place] [address] Funding Resources: Medicare Replacement Has patient been referred to DAVID/Manjit? Nursing informed of discharge plan: No CHP referral sent? No CM medication request completed (if appropriate): N/A PCP: Yes Dr. Fransisco Elam Transportation: Wheelchair Van([facility] ([phone])) Discharge Medications Will the patient be able to obtain his medications? Yes Does the patient have transportation to to obtain the prescription medications? Yes Name of RN informed: SHEBA Hartman Expected discharge date: 03/26/2020 Time: 174 Additional Information: Patient will dc to [facility] via [facility] Wheelchair van ([phone]) today between 1745- 184. RN to call report to [phone]. CM/SW Name & Contact number: Samara Cason RN Ph. [phone] The following information has been provided to the facility noted above: reason for the patient discharge or transfer; patients physical and psychosocial status; summary of care, treatment, servicesprovided to patient; and the patient progress toward goals. Michelle Monroy HEART SURGEON - 03/26/2020 12:28 PM LIFE SCIENCES TEACHER Physical Therapy Progress Note: Discharge Recommendations: Therapy Needs and Potential: Patient would benefit from continued physical therapy services to address: decline in bed mobility decline in transfers decline in gait and/or balance decreased strength decreased endurance Patient demonstrates good potential to improve and meet therapy goals with further physical therapy services. Patient appears motivated to improve their functional mobility and return to their previous levelof function. Patient demonstrates ability to tolerate atleast 30-60 minutes of physical therapy with active participation. Challenges to Home Transition: increased risk of falls decreased caregiver availability environmental barriers Equipment recommendations: wheelchair with extended legrest PAIN: -Pain Location: left leg -Pain rating before treatment: 7, After treatment: does not rate PRECAUTIONS: Weight Bearing Precaution: NWB, LLE General Precautions: PPE used:Gloves, Gown and Surgical mask, General, Fall,Contact Isolation Bracing/Cast present or required:LLE splint S: Patient agreeable to working with PT. O: Patient met Supine. Patient seen for the following: Bed mobility: Sitting balance Fair+ Supine to sit: Minimal assist Pt requiring J2EE SOFTWARE ENGINEER for bringing trunk upright Scooting to edge of bed: SBA/Setup assessed patient's safety throughout trasition, pt able to perform qwith correctechnique and using bedrails Transfers: Sit to stand: CGA using Rolling Walker Stand to sit: CGA using Rolling Walker Stand pivot transfer: Minimal assist using RW. Pt cued for keeping RW stable when attempting to hop for increased stability, secondary to patient with tendency of moving RW at the same time of performing hop-to for advancing/turning Pt assisted with RW management Pt performing pivot transfer with alternating hop-to and sliding R foot Static/dynamic standing balance: Fair/Fair- Verbal cueing provided for correct hand placement and correct use of AD Pt with c/o fatigue and dizziness after pivot transfer, requiring seated break and cued for PLB. Pt then reporting symptoms subsiding after a couple minutes. Gait: Assisted patient with ambulation as follows: 2 feet using Rolling Walker and Minimal assist Implemented for stand pivot transfer from bed>chair Pt requiring assistance for managing RW Patient presenting with hop-to/ sliding R foot gait pattern. . Therapeutic exercise: patient educated in Deep breathing, Energy conservation, Fall prevention, General strengthening, Positioning, Relaxation/breathing techniques, Safety awareness and WB restrictions instructed patient in the following: RLE [id number]: ankle pumps, heel slide, hip abd/add, straight leg raise LLE 2x10 reps: quad sets (with 5 sec hold), hip abd/add, straight leg raises After session, patient Up in chair and call valencia provided, SCD donned and running. RN notified. A: Patient tolerated session well. Patient progressing toward goals #1, #2, #3, #5. P: PT will - progress towards current goals and will attempt to improve with transfers and gait as pt able to tolerate . Total Timed Tx Codes in Minutes: 33 Min Total Treatment Time in Minutes: 33 Min Michelle Chow PTA Supervising PT Shelli Leonard SCIENCES TEACHER Samara Cason RN - 03/26/2020 8:15 AM CSTCare Coordinator Update: FRANCY reached out to Art ([phone]) with [facility] to get an update on insurance auth. Per Art, he called this morning and was told it was still under review. CM will follow up this afternoon. Update @ 9886: CM reached out to [facility] ([phone]) to get an update on referral for SNF. Per Skylar with admissions department, they have not received any updates as of yet, but she will reach out to insurance to get an update. CM will follow up with update. Update @ 6448: CM received a call from Art with [facility] requesting more information per patient insurance.CM/SW will send updated PT/OT notes as well as PASSR and COVID form. Samara Cason RN, MSN Cord Tire Builder [email or web address] (o) [phone] SCIENCES TEACHER Michael Soto MD - 03/25/2020 6:42 PM CST GENERAL SURGERY B PROGRESS NOTE 03/25/2020 HPI/Hospital Course: Ernie Rooney is a 59 year old male with multiple medical problems, admitted with LLE infection on 03/18/2020, now POD #7 s/p L BKA. SUBJECTIVE: 24 HOUR EVENTS: - No acute events overnight - Afebrile, VS WNL - Pain adequately controlled OBJECTIVE: PHYSICAL EXAM Temp: [35.7 C (96.3 F)-36.5 C (97.7 F)] Pulse: [79-90] Resp: [16-17] BP: (95-124)/(55-75) MAP (mmHg): [68-91] Intake/Output Summary (Last 24 hours) at 03/25/2020 1842 Last data filed at 03/25/2020 1507 Gross per 24 hour Intake Output 1500 ml Net -1500 ml General: No acute distress, comfortable, alert and oriented HEENT: Normocephalic, atraumatic Chest: Equal and symmetric rise, no deformities Abdomen: Soft, nontender, nondistended Musculoskeletal: No deformities, lesions, LLE stump with c/d/i dressing Labs/Radiology CBC BMP WBC (10*3/L) Date Value 03/24/2020 10.83 (H) NA (mmol/L) Date Value 03/23/2020 136 RBC (10*6/L) Date Value 03/24/2020 3.48 (L) K (mmol/L) Date Value 03/23/2020 4.0 PLT (10*3/L) Date Value 03/24/2020 475 (H) CALCIUM (mg/dL) Date Value 03/23/2020 8.0 (L) HGB (g/dL) Date Value 03/24/2020 9.9 (L) CL (mmol/L) Date Value 03/23/2020 102 BUN (mg/dL) Date Value 03/23/2020 7 CREATININE (mg/dL) Date Value 03/23/2020 0.64 Microbiology: 03/16--> blood culture- + Ecoli BLOOD CULTURE WORKUP [[id number]] Collected: 03/16/20 0057 Lab Status: Final result Specimen: Blood from VENOUS Updated: 03/20/20 0828 Blood Culture Workup Escherichia coli Comment: Organism identified by DNA probe Gram stain Isolated from anaerobic bottle Gram negative bacilli Isolated from aerobic bottle Gram negative bacilli Comment: This is an appended report. These results have been appended to a previously preliminaryverified report. Susceptibility Escherichia coli SUSCEPTIBILITY TESTING Amoxacillin/Clavulanic acid 8 Susceptible Ampicillin >=32 Resistant Ampicillin/Sulbactam >=32 Resistant Cefazolin <=4 Susceptible Cefotaxime <=1 Susceptible Ciprofloxacin <=0.25 Susceptible Ertapenem <=0.5 Susceptible Gentamicin <=1 Susceptible Levofloxacin <=0.12 Susceptible Piperacillin/Tazobactam <=4 Susceptible Trimethoprim/Sulfamethoxazole <=20 Susceptible 03/16--> wound culture POSITIVE WOUND CULTURE [[id number]] Collected: 03/16/20 0448 Lab Status: Final result Specimen: Swab from FOOT, LEFT Updated: 03/19/20 09 Wound Culture 1+ Skin avel 3+ Escherichia coli 1+ Enterococcus faecalis Comment: Previous preliminary verified result was Enterococcus species on 03/17/2020 at 0932 CDT Gram stain Numerous Gram positive cocci Few Gram positive bacilli Moderate PMNs or Mononuclear cells observed Susceptibility Escherichia coli Enterococcus faecalis SUSCEPTIBILITY TESTING SUSCEPTIBILITY TESTING Amoxacillin/Clavulanic acid 4 Susceptible Ampicillin >=32 Resistant <=2 Susceptible Ampicillin/Sulbactam >=32 Resistant Cefazolin 16 Susceptible Cefotaxime <=1 Susceptible Ciprofloxacin <=0.25 Susceptible Ertapenem <=0.5 Susceptible Gentamicin <=1 Susceptible Levofloxacin <=0.12 Susceptible Piperacillin/Tazobactam >=128 Resistant Trimethoprim/Sulfamethoxazole <=20 Susceptible Vancomycin 1 Susceptible 03/19--> blood culture x2--> NGTD ASSESSMENT/PLAN: Ernie Rooney is a 59 year old male with multiple medical problems, admitted with LLE infection on03/18/2020, now POD #7 s/p L BKA. - Continue home meds: statin, apixiban, metoprolol, lisinopril, plavix, lasix, tamsulosin, synthroid, protonix, effexor - Diet: diabetic. Glucose controlled. - PT/OT. Continue with brace to prevent contracture. - Dispo: pending SNF placement, possible discharge tomorrow 03/26/2020. Discussed with CM and patient. Plan for 14 day course of levaquin (03/21-04/04) and follow up in 2 weeks from discharge with Dr. Esquivel in [place]. Discussed with Dr. Alvin Soto MD, MPH Resident, General Surgery General Surgery B - Pager #: SCIENCES TEACHER Associated attestation - Tato Esquivel MD - 03/25/2020 8:33 PM CSTDoing well - awaiting placement by Case management. Samara Moon RN - 03/25/2020 12:57 PM CSTCare Coordinator Update: CM reached out to [place] ([phone]) with [facility] to get an update on insurance auth for patient to transfer to Care Home Facility. Per [place], they have not yet received insurance auth. CMfaxed over PASSR and COVID test to [facility], so that once insurance auth is obtained, transportation can be arranged and patient discharged. Update @ 1615: CM reached out to [place] for an update on insurance auth to [facility]. Pending a response. Update @ 2310: CM reached out to [facility] ([phone]) to get an update on referral for SNF. Per front desk person, admission department has left for the day. CM will follow up in the morning. Samara Cason RN, MSN [employer] T[employer] Builder [email or web address] (D) [phone] SCIENCES TEACHER Cecelia Loja PTA - 03/25/2020 9:42 AM LIFE SCIENCES TEACHER Physical Therapy Progress Note: Discharge Recommendations: Therapy Needs and Potential: Patient would benefit from continued physical therapy services to address: decline in bed mobility decline in transfers decline in gait and/or balance decreased strength decreased endurance Patient demonstrates good potential to improve and meet therapy goals with further physical therapy services. Patient appears motivated to improve their functional mobility and return to their previous levelof function. Patient demonstrates ability to tolerate atleast 30-60 minutes of physical therapy with active participation. Challenges to Home Transition: increased risk of falls decreased caregiver availability environmental barriers Equipment recommendations: wheelchair with extended legrest PAIN: -Pain Location: left leg -Pain rating before treatment: 7, After treatment: 7 -Pain Management: Nursing Notified and patient able to receive a narco but declined, wants to wait 45 mins for the morphine PRECAUTIONS: Weight Bearing Precaution: NWB, LLE General Precautions: PPE used:Gloves, Gown and Surgical mask, General, Fall,Contact Isolation Bracing/Cast present or required:LLE splint S: Patient agreeable to working with PT. O: Patient met Semi reclined in bed, SCD sleeves on and machine turned on. Patient seen for the following: Bed mobility: Rolling: SBA/Setup Supine-sit: Minimal assist Sitting balance Fair Scooting to edge of bed: Minimal assist cued on proper technique and upright posture during bed mobility. Transfers: Sit to stand: CGA using Rolling Walker Stand to sit: CGA using Rolling Walker Stand pivot transfer: Minimal assist, Moderate assist Static/dynamic standing balance: Fair Verbal cueing provided for correct hand placement and correct use of AD Sit to stand performed x 2 trials. Patient felt dizzy after first attempt. Instructed patient toperform ankle pumps to decrease dizziness. Gait: Assisted patient with ambulation as follows: 3 feet using Rolling Walker and Minimal assist, Moderate assist Patient presenting with hop to gait pattern. . Patient had difficulty with shifting weight through BUE to facilitate with the hop to gait pattern. Patient attempted to slide foot during gait training to chair. Therapeutic exercise: patient educated in Fall prevention, General strengthening, Positioning and Safety awareness. Patient performed AROM x 10 reps on RLE ankle pumps, LAQ, hip abduction and knee flexion Patient performed AROM x 10 reps on LLE hip abduction and hip flexion After session, patient Up in chair, SCD sleeves on and machine turned on and call valencia provided. Allnecessary items near by. Patient wore appropriate PPE during treatment: non skid socks, surgical mask, and gait belt. A: Patient tolerated session fair. Patient progressing toward goals #1, #2, #3, #5. P: PT will - progress gait training as patient can tolerated. Total Timed Tx Codes in Minutes: 38 Min Total Treatment Time in Minutes: 38 Min Cecelia Loja PTA Supervising PT:Maribel Wilkinson, PT Michael Rice MD - 03/25/2020 6:49 AM CSTGSB Brief Update 03/25/2020 No issues overnight. Patient continues to do well. Remains AFVSS. No new labs. Glucose well controlled. Tolerated PT session. Pending placement at facility. CM currently working on final placement arrangements. Michael Soto MD, MPH Resident, General Surgery General Surgery B [phone] SCIENCES TEACHER Nicholas Dorman PTA - 03/24/2020 1:09 PM CSTPhysical Therapy Progress Note Discharge Recommendations: Therapy Needs and Potential: Patient would benefit from continued physical therapy services to address: decline in bed mobility decline in transfers decline in gait and/or balance decreased strength decreased endurance Patient demonstrates good potential to improve and meet therapy goals with further physical therapy services. Patient appears motivated to improve their functional mobility and return to their previous levelof function. Patient demonstrates ability to tolerate atleast 30-60 minutes of physical therapy with active participation. Challenges to Home Transition: increased risk of falls decreased caregiver availability environmental barriers Equipment recommendations: wheelchair with extended legrest PAIN none PRECAUTIONS Weight Bearing Precaution: LLE NWB General Precautions: Fall, Contact Isolation Bracing/Cast present or required: LLE splint Oxygen: none S: Patient found sitting in the recliner and agreeable to working with PT. O: Patient seen and instruction provided for correct and safe performance of all the following functional tasks: Transfers sit <-> stand: Min A using RW verbal cueing provided for correct and safe use of AD during performance of all transfers patient able to return demo correctly with repetition and cueing task performed from/onto recliner x 5 reps standing static/dynamic balance: Fair patient able to only tolerate ~10-15 sec in standing during reps 1-4 due to c/o dizziness patient able to tolerate ~35 sec during final stand despite c/o dizziness Therapeutic Exercise sitting RLE AROM -- 2 x 20 reps: AP, LAQ, knee raises all with 3 sec hold sitting LLE AROM -- 2 x 20 reps: LAQ, knee raises all with 3 sec hold provided patient with verbal and tactile cueing for correct technique to help focus on displayinggood control per rep provided patient with verbal HEP along with detailed instructions (visual/verbal/tactile) on how to correctly perform all exercise reps stressed the importance of compliance with performance of all exercises throughout day to help with increasing overall strength, endurance, flexibility, and ROM Gait -- unable to attempt due to c/o dizziness Patient Teaching Functional Mobility and the importance/benefits of active and safe performance with OOB activities to help prevent BLE DVT's, PNA, overall decrease in mobility, strength, and endurance BLE Strengthening Exercises -- Verbal and visual comprehensive HEP program(s) provided along withdetailed instructions on how to safely perform all reps stressing the importance of establishing a consistent schedule to help with increasing overall strength and endurance Safety and Transfer training with use of appropriate AD Weight shifting in supine and sitting position with correct frequency and duration to help prevent any possible skin breakdown Proper LLE floating via use of pillows to help prevent any possible skin breakdown Positive benefits of sitting upright at EOB or recliner throughout the day to help increase sitting tolerance and help reduce negative effects of immobility LLE NWB precautions reviewed in detail stressing the importance of compliance to help reduce riskof injury Provided patient with preferred teaching of verbal and visual information on above instructions. Patient presenting readiness to learn. Patient verbalizing understanding to all discussed. Patient leftlong sitting in the recliner with LLE elevated and propped properly using pillows and call valencia provided. A: Patient today with significant improvement with overall attitude and able to participate fairly well despite c/o dizziness. P: PT will progress with mobility. Nicholas Dorman PTA Pager #: [phone] Supervising PT Michelle Toscano PT, DPT Total Timed Tx Codes in Minutes: 35 min Total Treatment Time in Minutes: 35 min ' Colette Cox OT - 03/24/2020 10:41 AM CSTOCCUPATIONAL THERAPY NOTE: Discharge Recommendations: Therapy Needs and Potential:- Patient would benefit from continued skilled occupational therapy services to address: Decline in basic activities of daily living, Decline in instrumental activities of daily living, Decreased strength and Decreased endurance - Patient demonstrates good potential to improve and meet therapy goals with further skilled occupational therapy services. - Patient appears motivated to improve their B/IADLs and return to their previous level of function. - Patient demonstrates ability to tolerate at least 30-60 minutes of active participation in occupational therapy. - Patient able to follow commands: 1-step Yes, Multi-step Yes, Inconsistencies No Challenges to Home Transition:- Requires physical assistance for BADLS - Requires physical assistance for IADLS - Limited caregiver availability - Decreased safety awareness/judgement - Increased risk of falls - Environmental barriers 14 stairs Equipment Recommendations:none Precautions: Weight bearing status: NWB L LE General: PPE Utilized: Gloves, Gown and Surgical mask, Fall and new L BKA Bracing: :L LE posterior knee conformer S: Patient agreeable to participate in occupational therapy. Patient very pleasant and cooperative this date. He was motivated to get out of bed. PAIN Pre-treatment: unrated/10 pain at L LE. Post-treatment: unrated/10 pain at L LE. reports taking pain meds and Repositioning Provided. O: Patient found semireclining in bed. Knee conformer in place. Patient seen this date for the following: ADL Training Grooming: SBA/Setup while seated to wash hands and rinse mouth Toilet Transfer: Pivot recliner to toilet with grab bar-min assist Toileting Hygiene: Modified independent. Patient unable to have a BM.Nursing informed and patient encouraged to take laxative meds as ordered. Supine to sit with head of bed elevated-SBA, sit to stand to RW-min assist, pivot bed>reclinerwith RW-min/mod assist in 3 incremental sit to stands. Patient had difficulty with pivoting with RW.Demonstration provided and feel he will succeed with practice. Orthosis Management Orthosis donned properly upon arrival? Yes, Patient removed it upon therapist request.. Orthosis doffed and visible skin inspected. Issues noted: No, Patient left seated in recliner with orthosis off to give his skin a break.Pillow provided avoiding pressure under the knee to keep limb in extension.. Patient left sitting upright in bedside chair with call valencia in reach. Nursing informed how session went and OT ordered a BSC for in room use. A: Patient exhibited Good participation in therapy and responded well to treatment this session. Persistent weakness, and lack of experience remain(s) a limiting factor. Patient continues to present with Decreased independence with ADL, Impaired postural control and Decreased strength/endurance for functional activity and will benefit from continued OT services to address above areas and improve functional status. P: Functional motor treatment, Patient/Caregivier Education, Equipment recommendations, Daily livingactivities, Therapeutic exercises, Neuromuscular Re-Education and Orthotic monitoring Wendy Medina,OTR [phone] Total Timed Treatment Codes: 30 Min Total Treatment Time: 30 Min Michael Rice MD - 03/24/2020 10:01 AM LIFE SCIENCES TEACHER GENERAL SURGERY B PROGRESS NOTE 03/24/2020 HPI/Hospital Course: Ernie Rooney is a 59 year old male with multiple medical problems, admitted with LLE infection on 03/18/2020, now POD #6 s/p L BKA. SUBJECTIVE: 24 HOUR EVENTS: - No acute events overnight - Afebrile, VS WNL - Pain adequately controlled OBJECTIVE: PHYSICAL EXAM Temp: [36.1 C (97 F)-36.9 C (98.5 F)] Pulse: [79-86] Resp: [16-18] BP: (103-147)/(65-80) MAP (mmHg): [78-100] Intake/Output Summary (Last 24 hours) at 03/24/2020 1002 Last data filed at 03/24/2020 0500 Gross per 24 hour Intake Output 2300 ml Net -2300 ml General: No acute distress, comfortable, alert and oriented HEENT: Normocephalic, atraumatic Chest: Equal and symmetric rise, no deformities Abdomen: Soft, nontender, nondistended Musculoskeletal: No deformities, lesions, LLE stump clean, dry with sutures in place. Minimal TTP. No signs of infection. Labs/Radiology CBC BMP WBC (10*3/L) Date Value 03/24/2020 10.83 (H) NA (mmol/L) Date Value 03/23/2020 136 RBC (10*6/L) Date Value 03/24/2020 3.48 (L) K (mmol/L) Date Value 03/23/2020 4.0 PLT (10*3/L) Date Value 03/24/2020 475 (H) CALCIUM (mg/dL) Date Value 03/23/2020 8.0 (L) HGB (g/dL) Date Value 03/24/2020 9.9 (L) CL (mmol/L) Date Value 03/23/2020 102 BUN (mg/dL) Date Value 03/23/2020 7 CREATININE (mg/dL) Date Value 03/23/2020 0.64 Microbiology: 03/16--> blood culture- + Ecoli BLOOD CULTURE WORKUP [[id number]] Collected: 03/16/20 0057 Lab Status: Final result Specimen: Blood from VENOUS Updated: 03/20/20 0828 Blood Culture Workup Escherichia coli Comment: Organism identified by DNA probe Gram stain Isolated from anaerobic bottle Gram negative bacilli Isolated from aerobic bottle Gram negative bacilli Comment: This is an appended report. These results have been appended to a previously preliminaryverified report. Susceptibility Escherichia coli SUSCEPTIBILITY TESTING Amoxacillin/Clavulanic acid 8 Susceptible Ampicillin >=32 Resistant Ampicillin/Sulbactam >=32 Resistant Cefazolin <=4 Susceptible Cefotaxime <=1 Susceptible Ciprofloxacin <=0.25 Susceptible Ertapenem <=0.5 Susceptible Gentamicin <=1 Susceptible Levofloxacin <=0.12 Susceptible Piperacillin/Tazobactam <=4 Susceptible Trimethoprim/Sulfamethoxazole <=20 Susceptible 03/16--> wound culture POSITIVE WOUND CULTURE [[id number]] Collected: 03/16/20 0448 Lab Status: Final result Specimen: Swab from FOOT, LEFT Updated: 03/19/20926 Wound Culture 1+ Skin avel 3+ Escherichia coli 1+ Enterococcus faecalis Comment: Previous preliminary verified result was Enterococcus species on 03/17/2020 at 0932 CDT Gram stain Numerous Gram positive cocci Few Gram positive bacilli Moderate PMNs or Mononuclear cells observed Susceptibility Escherichia coli Enterococcus faecalis SUSCEPTIBILITY TESTING SUSCEPTIBILITY TESTING Amoxacillin/Clavulanic acid 4 Susceptible Ampicillin >=32 Resistant <=2 Susceptible Ampicillin/Sulbactam >=32 Resistant Cefazolin 16 Susceptible Cefotaxime <=1 Susceptible Ciprofloxacin <=0.25 Susceptible Ertapenem <=0.5 Susceptible Gentamicin <=1 Susceptible Levofloxacin <=0.12 Susceptible Piperacillin/Tazobactam >=128 Resistant Trimethoprim/Sulfamethoxazole <=20 Susceptible Vancomycin 1 Susceptible 03/19--> blood culture x2--> NGTD ASSESSMENT/PLAN: Ernie Rooney is a 59 year old male with multiple medical problems, admitted with LLE infection on03/18/2020, now POD #6 s/p L BKA. - Continue home meds: statin, apixiban, metoprolol, lisinopril, plavix, lasix, tamsulosin, synthroid, protonix, effexor - Diet: diabetic. Glucose controlled. - PT/OT. Continue with brace to prevent contracture. - Dispo: pending SNF placement, possible discharge today 03/24/2020. Discussed with CM and patient. Plan for 14 day course of levaquin (03/21-04/04) and follow up in [address] Esquivel in [place]. Discussed with Dr. Avlin Soto MD, MPH Resident, General Surgery General Surgery B - Pager #: SCIENCES TEACHER Associated attestation - Tato Esquivel MD - 03/24/2020 10:53 AM CSTI have examined Mr Rooney and agree with the note by Dr Soto Awaiting placement by Case Management. Samara Moon, SHEBA - 03/24/2020 8:38 AM CSTCare Coordinator Update: CM called [facility] ([phone]) to get an update on referral. Per Denise, they are unable to accept patient due to noncompliance with physical therapy. CM will send referral to [facility] ([address], [place] (P) [phone] (F) [phone]). CM called patient to stress the importance of working with physical therapy to regain his independence and ability to return home after placement for additional rehab. Patient verbalized that he was inagreement and would work with physical therapy with the goal of regaining enough mobility to return home eventually. Update @ 1410: CM received a call from Skip ([phone]) with [facility] regarding referral for alf facility placement. Per Skip, [facility] is unable to accept due to patient having copay days after 10 days of stay and patient's inability to afford copayment. CM will discuss with patient and obtain a new choice for referral. Update @ 5798: CM spoke with patient regarding update above. Patient would like referral sent to [facility] [address], [place], [place] ph: [phone] f:[phone]. CM will send referral and follow up. Update @ 1603: CM reached out to [place] ([phone]), to ensure that referral was received for [facility]. Left for return call. Update @ 0491: CM attempted to reach out to [place] to discuss referral for [facility]. Left for return call. CM called [facility] ([phone]) to follow up on referral. Per Skylar with admissions department, the patient was clinically accepted and they are pending insurance auth. CM will follow up. Samara Cason RN, MSN [employer] [email or web address] (o) [phone] Gabrielle Bhakta MD - 03/23/2020 4:54 PM CST GENERAL SURGERY B PROGRESS NOTE 03/23/2020 HPI/Hospital Course: Ernie Rooney is a 59 year old male with multiple medical problems, admitted with LLE infection, now POD #5 s/p L BKA. SUBJECTIVE: 24 HOUR EVENTS: - No acute events overnight - Afebrile, VS WNL - Pain adequately controlled OBJECTIVE: PHYSICAL EXAM Temp: [35.7 C (96.3 F)-36.9 C (98.5 F)] Pulse: [85-90] Resp: [16-18] BP: (110-149)/(65-84) MAP (mmHg): [83-106] Intake/Output Summary (Last 24 hours) at 03/23/2020 1655 Last data filed at 03/23/2020 1157 Gross per 24 hour Intake Output 4750 ml Net -4750 ml General: No acute distress, comfortable, alert and oriented HEENT: Normocephalic, atraumatic Chest: Equal and symmetric rise, no deformities Abdomen: Soft, nontender, nondistended Musculoskeletal: No deformities, lesions, LLE stump wrapped and in brace, no visible bleeding Labs/Radiology CBC BMP WBC (10*3/L) Date Value 03/23/2020 10.81 (H) NA (mmol/L) Date Value 03/23/2020 136 RBC (10*6/L) Date Value 03/23/2020 3.50 (L) K (mmol/L) Date Value 03/23/2020 4.0 PLT (10*3/L) Date Value 03/23/2020 487 (H) CALCIUM (mg/dL) Date Value 03/23/2020 8.0 (L) HGB (g/dL) Date Value 03/23/2020 9.9 (L) CL (mmol/L) Date Value 03/23/2020 102 BUN (mg/dL) Date Value 03/23/2020 7 CREATININE (mg/dL) Date Value 03/23/2020 0.64 Microbiology: 03/16--> blood culture- + Ecoli BLOOD CULTURE WORKUP [[id number]] Collected: 03/16/20 0057 Lab Status: Final result Specimen: Blood from VENOUS Updated: 03/20/20 0828 Blood Culture Workup Escherichia coli Comment: Organism identified by DNA probe Gram stain Isolated from anaerobic bottle Gram negative bacilli Isolated from aerobic bottle Gram negative bacilli Comment: This is an appended report. These results have been appended to a previously preliminaryverified report. Susceptibility Escherichia coli SUSCEPTIBILITY TESTING Amoxacillin/Clavulanic acid 8 Susceptible Ampicillin >=32 Resistant Ampicillin/Sulbactam >=32 Resistant Cefazolin <=4 Susceptible Cefotaxime <=1 Susceptible Ciprofloxacin <=0.25 Susceptible Ertapenem <=0.5 Susceptible Gentamicin <=1 Susceptible Levofloxacin <=0.12 Susceptible Piperacillin/Tazobactam <=4 Susceptible Trimethoprim/Sulfamethoxazole <=20 Susceptible 10/26--> wound culture POSITIVE WOUND CULTURE [[id number]] Collected: 03/16/20 0448 Lab Status: Final result Specimen: Swab from FOOT, LEFT Updated: 03/19/20926 Wound Culture 1+ Skin avel 3+ Escherichia coli 1+ Enterococcus faecalis Comment: Previous preliminary verified result was Enterococcus species on 03/17/2020 at 0932 CDT Gram stain Numerous Gram positive cocci Few Gram positive bacilli Moderate PMNs or Mononuclear cells observed Susceptibility Escherichia coli Enterococcus faecalis SUSCEPTIBILITY TESTING SUSCEPTIBILITY TESTING Amoxacillin/Clavulanic acid 4 Susceptible Ampicillin >=32 Resistant <=2 Susceptible Ampicillin/Sulbactam >=32 Resistant Cefazolin 16 Susceptible Cefotaxime <=1 Susceptible Ciprofloxacin <=0.25 Susceptible Ertapenem <=0.5 Susceptible Gentamicin <=1 Susceptible Levofloxacin <=0.12 Susceptible Piperacillin/Tazobactam >=128 Resistant Trimethoprim/Sulfamethoxazole <=20 Susceptible Vancomycin 1 Susceptible 03/19--> blood culture x2--> NGTD ASSESSMENT/PLAN: Ernie Rooney is a 59 year old male with multiple medical problems, admitted with LLE infection, now POD #5 s/p L BKA. - Continue home meds: statin, apixiban, metoprolol, lisinopril, plavix, lasix, tamsulosin, synthroid, protonix, effexor - Diet: diabetic - PT/OT - Dispo: pending SNF placement, will discharge with 14d of levaquin and follow up [place] [address] Alvin Panda MD General Surgery PGY-2 General Surgery B - Pager #: SCIENCES TEACHER Associated attestation - Tato Esquivel MD - 03/23/2020 9:50 PM CSTI have examined Mr Rooney and agree the note by Dr Panda. Awaiting placement by case Management. Nicholas Wilkins, HEART SURGEON - 03/23/2020 12:07 PM CSTPhysical Therapy Progress Note Attempt As per conversation with RN prior to entering room, patient is continuing to present self-limiting behaviors despite encouragement or education by staff. Attempted to see patient in the AM. Patient found resting comfortable in bed upon arrival. Patientquick to decline therapy with conversation as follows: P: "I'm not doing therapy today." T: "Why? What's your reason today?" P: "I'm sick and tired." T: "Which one is it? Are you sick or tired?" P "I'm in pain." (pain not rated) T: "Ok. You do realize that we're trying to get you in to rehab. You do realize that if you do getin you are going to be required to participate with PT/OT? You start declining therapy there like you have been here and they'll kick you out quickly. There's a waiting list for people to get in so if you don't want to participate they'll send you home." P: "I know what the rules are. I've been there before." T: "Ok. So with all of that said do you want to participate with PT today?" P: "Nope." Patient has now declined PT twice and continues to self-limit. Educated patient with the importanceand benefits of participating with PT however patient still adamantly declined despite verbal encouragement. RN notified with status. Nicholas Dorman PTA Pager #: [phone] Supervising PT Michelle Toscano PT, DPT Samara Doss RN - 03/23/2020 8:34 AM CSTCare Coordinator Update: FRANCY reached out to Joaquín ([phone]) with [facility] to get an update on inpatient rehab acceptance. Per Joaquín, she will reach out to [facility] insurance to get an update on the peer to peer and patient insurance auth. FRANCY will follow up with more information. Update @ 7916: CM received an update from Joaquín regarding peer to peer. [facility] to call [phone] to complete peer to peer with Dr. Kaba, this must be completed by the end of the business day today. FRANCY provided information for peer to peer to Dr. Esquivel. Update @ 2719: CM received confirmation that patient has been denied insurance auth for inpatient rehab, but insurance did inform that they would approve [facility]. CM met with patient at the bedside to discuss this information and obtain alf facility choice. Patient chose The [address] F: [phone]. CM will send referral and follow up. Update @ 2865: CM reached out to [facility] to ensure referral was received. Per [facility], they received the referral and will review for acceptance. CM will follow up. Update @ 1601: CM reached out to [facility] for an update on referral. Per Chari, admissions is unavailable at this time. CM left message for return call. Samara Cason RN, MSN [employer] [email or web address] (o) [phone] SCIENCES TEACHER Gina Benson MD - 03/22/2020 9:31 AM CST Colorectal Surgery Daily Progress Note 03/22/2020 Subjective/24-Hour Events: POD # 4 s/p left BKA -- No acute events overnight. AFVSS -- Pain controlled -- working with OT/PT Reason Patient Remains Admitted: awaiting rehab placement Objective: Vitals: Temp: [35.6 C (96.1 F)-36.6 C (97.9 F)] Pulse: [77-85] Resp: [16-18] BP: (98-135)/(56-86) MAP (mmHg): [70-102] I/O: Intake/Output Summary (Last 24 hours) at 03/22/2020 0931 Last data filed at 03/22/2020 0320 Gross per 24 hour Intake Output 975 ml Net -975 ml Physical Exam: BP 135/86 (BP Location: Right arm, Patient Position: Supine) | Pulse 85 | Temp 36.1 C (97 F) (Oral) | Resp 17 | Ht 1.702 m (5' 7") | Wt 79.4 kg (175 lb) | SpO2 99% | BMI 27.41 kg/m General: No acute distress, comfortable, alert and oriented HEENT: Normocephalic, atraumatic Chest: Equal and symmetric rise, no deformities Abdomen: Soft, nontender, nondistended Musculoskeletal: No deformities, lesions, LLE stump wrapped and in brace, no visible bleeding Current Medications: Current Facility-Administered Medications Medication Dose Route Frequency Last Rate Last Dose levoFLOXacin (LEVAQUIN) tablet 750 mg 750 mg Oral Q24H ABX 750 mg at 03/22/20 0756 acetaminophen (TYLENOL) tablet 650 mg 650 mg Oral Q6H 650 mg at 03/22/20 0512 aspirin chewable tablet 81 mg 81 mg Oral DAILY 81 mg at 03/22/20 075 atorvastatin (LIPITOR) tablet 40 mg 40 mg Oral QHS 40 mg at 03/21/202022 heparin (1,000 unit/mL, 10 mL vial) 3,000 Units Slow IV Push FOR REBOLUSING HYDROcodone-acetaminophen (NORCO) 10-325 mg tablet 1 tablet 1 tablet Oral Q6HPRN 1 tablet at 03/22/20 09 insulin NPH (HUMULIN N) injection 5 Units 5 Units Subcutaneous QAM+HS 5 Units at 03/21/202024 lactobacillus acidophilus (ACIDOPHILLUS) 25 million cell -100 mg captab 1 tablet 1 tablet Oral TID 1 tablet at 03/22/20 075 levothyroxine (SYNTHROID) tablet 50 mcg 50 mcg Oral QAM-0600 50 mcg at 03/22/20 05 lidocaine 1% (PF) (XYLOCAINE) injection 5 mL 5 mL Subcutaneous PRN morpHINE injection 2 mg 2 mg Slow IV Push Q4HPRN 2 mg at 03/22/20 0451 NaCl 0.9% (NS) injection 10 mL 10 mL Slow IV Push PRN ondansetron (ZOFRAN (PF)) injection 4 mg 4 mg Slow IV Push Q6HPRN 4 mg at 03/18/20 1608 pantoprazole (PROTONIX) EC tablet 20 mg 20 mg Oral DAILY 20 mg at 03/22/20 0756 Sliding Scale Insulin-Regular + Fsbg Testing Subcutaneous Q4H Stopped at 03/20/20 1950 venlafaxine (EFFEXOR) tablet 75 mg 75 mg Oral BID 75 mg at 03/22/20 0756 Labs: 03/22/2020 03:42 WBC x10^3 8.79 RBC x10^6 3.34 (L) HGB 9.6 (L) HCT 28.6 (L) PLT x10^3 433 (H) 03/22/2020 05:09 NA 137 K 4.2 CL 105 CO2 TOTAL 26 AGAP 6 BUN 10 GLUCOSE 123 (H) CREATININE 0.64 CALCIUM 7.7 (L) PHOSPHORUS 4.4 MAGNESIUM 1.6 (L) Microbiology: 03/16--> blood culture- + Ecoli BLOOD CULTURE WORKUP [[id number]] Collected: 03/16/20 0057 Lab Status: Final result Specimen: Blood from VENOUS Updated: 03/20/20827 Blood Culture Workup Escherichia coli Comment: Organism identified by DNA probe Gram stain Isolated from anaerobic bottle Gram negative bacilli Isolated from aerobic bottle Gram negative bacilli Comment: This is an appended report. These results have been appended to a previously preliminary verified report. Susceptibility Escherichia coli SUSCEPTIBILITY TESTING Amoxacillin/Clavulanic acid 8 Susceptible Ampicillin >=32 Resistant Ampicillin/Sulbactam >=32 Resistant Cefazolin <=4 Susceptible Cefotaxime <=1 Susceptible Ciprofloxacin <=0.25 Susceptible Ertapenem <=0.5 Susceptible Gentamicin <=1 Susceptible Levofloxacin <=0.12 Susceptible Piperacillin/Tazobactam <=4 Susceptible Trimethoprim/Sulfamethoxazole <=20 Susceptible 03/16--> wound culture POSITIVE WOUND CULTURE [[id number]] Collected: 03/16/20 0448 Lab Status: Final result Specimen: Swab from FOOT, LEFT Updated: 03/19/20926 Wound Culture 1+ Skin avel 3+ Escherichia coli 1+ Enterococcus faecalis Comment: Previous preliminary verified result was Enterococcus species on 03/17/2020 at 0932 CDT Gram stain Numerous Gram positive cocci Few Gram positive bacilli Moderate PMNs or Mononuclear cells observed Susceptibility Escherichia coli Enterococcus faecalis SUSCEPTIBILITY TESTING SUSCEPTIBILITY TESTING Amoxacillin/Clavulanic acid 4 Susceptible Ampicillin >=32 Resistant <=2 Susceptible Ampicillin/Sulbactam >=32 Resistant Cefazolin 16 Susceptible Cefotaxime <=1 Susceptible Ciprofloxacin <=0.25 Susceptible Ertapenem <=0.5 Susceptible Gentamicin <=1 Susceptible Levofloxacin <=0.12 Susceptible Piperacillin/Tazobactam >=128 Resistant Trimethoprim/Sulfamethoxazole <=20 Susceptible Vancomycin 1 Susceptible 10/29--> blood culture x2--> NGTD Radiology: No new radiology Pathology: No new pathology Hospital Problem List: Osteomyelitis Stroke Coronary artery disease involving [place] coronary artery of [place] heart with angina pectoris Type 2 diabetes mellitus without complication, without long-term current use of insulin Essential hypertension Other hyperlipidemia Pacemaker PAF (paroxysmal atrial fibrillation) Elevated brain natriuretic peptide (BNP) level Preop cardiovascular exam Chronic diastolic congestive heart failure KORY (acute kidney injury) Left foot pain Assessment and Plan: Ernie Rooney is a 59 year old male with multiple medical problems, admitted with LLE infection, now POD #4 s/p L BKA. Progressing well. Pain controlled, working with OT/PT. Awaiting placement. #Hyperlipidemia--> continue atorvastatin #Type 2 DM--> holding home glipizide, continue SSI # atrial fibrillation --> apixiban held for surgery, restarting today # HTN--> restarting home metoprolol and lisinopril today # CAD--> holding plavix for surgery, restarting today # Chronic diastolic heart failure--> were holding home lasix, will restart today # BPH--> continue tamsulosin # hypomagnesemia--> will give PO mag today # hyperthyroidism--> continue home synthroid # GERD--> continue home protonix # depression --> continue home effexor # bacteremia and wound infection --> resolved s/p BKA, will complete 5 days Levaquin and stop -- continue ADA diet -- Continue OT/PT -- awaiting placement Gina Benson MD Chief Resident PGY-5, General Surgery General Surgery B - Pager #: SCIENCES TEACHER Associated attestation - Richard Cardenas MD - 03/22/2020 7:[address] with Dr. Benson, I examined this patient. I agree with resident's note as written. Karen Reyes, OT - 03/21/2020 12:10 PM CDTOCCUPATIONAL THERAPY NOTE: Discharge Recommendations: Therapy Needs and Potential:- Patient would benefit from continued skilled occupational therapy services to address: Decline in basic activities of daily living, Decline in instrumental activities of daily living, Decreased strength and Decreased endurance - Patient demonstrates good potential to improve and meet therapy goals with further skilled occupational therapy services. - Patient appears motivated to improve their B/IADLs and return to their previous level of function. - Patient demonstrates ability to tolerate at least 30-60 minutes of active participation in occupational therapy. - Patient able to follow commands: 1-step Yes, Multi-step Yes, Inconsistencies No Challenges to Home Transition:- Requires physical assistance for BADLS - Requires physical assistance for IADLS - Limited caregiver availability - Increased risk of falls - Environmental barriers Patient has 14 stairs Equipment Recommendations:None Precautions: Weight bearing status: NWB L LE General: PPE Utilized: Gloves, Gown and Surgical mask, Contact and Fall Bracing: posterior knee conformer S: Patient agreeable to participate in occupational therapy. Pt refused to practice doff/don knee conformer at end of session PAIN Pre-treatment: not rated/10 pain Nursing Notified and Repositioning Provided. O: Patient found supine in bed. Nursing present and L knee conformer donned. Patient seen this date for the following: Orthosis Management Orthosis donned properly upon arrival? Yes Orthosis doffed and visible skin inspected. Issues noted: No, fitting well. Written/verbal orthotic training and instructions provided re: wear, don/doff, care, and precautions: Yes Educated on purpose of splint as patient wanted to remove orthosis; educated on need to reapply if doffed for exercises. Encouraged patient to practice removal and application; refused to attempt self management. Patient left semireclining in bed with call valencia in reach. orthosis donned and secure. A: Patient exhibited Good participation in therapy and responded well to treatment this session. Will benefit from continued OT services to address above areas and improve functional status. P: Functional motor treatment, Patient/Caregivier Education, Equipment recommendations, Daily livingactivities, Therapeutic exercises and Neuromuscular Re-Education Violet Reyes OTR Pager [phone] Total Timed Treatment Codes: 9 Min Total Treatment Time: 9 Min Brigitte Pastrana MD - 03/21/2020 4:08 AM CDT General Surgery Progress Note Date: 03/21/2020 Time: 4:08 AM 24 hour Events: Narendra. AFVSS. Wbc down trended to 12K. Pending insurance approval for rehab. Diet: Regular Temp: [36.2 C (97.1 F)-36.5 C (97.7 F)] Pulse: [79-82] Resp: [16-18] BP: (116-132)/(69-84) MAP (mmHg): [82-93] Intake/Output Summary (Last 24 hours) at 03/21/2020 0408 Last data filed at 03/20/2020 1600 Gross per 24 hour Intake Output 1420 ml Net -1420 ml Physical Exam: BP 120/69 (BP Location: Left arm, Patient Position: Supine) | Pulse 81 | Temp 36.3 C (97.3 F) (Oral) | Resp 16 | Ht 1.702 m (5' 7") | Wt 79.4 kg (175 lb) | SpO2 100% | BMI 27.41 kg/m General: Alert & oriented. NAD Respiratory: Regular unlabored breathing Cardiovascular: HDS Abdomen: soft . NDNT Extremity: No cyanosis-No edema. Incision: c,d,i Labs: Recent Labs 03/18/20 0930 03/18/20 1655 03/18/20 1656 03/19/20 0413 03/20/20 0344 03/20/20 1751 03/21/20 0335 WBC 22.55* -- 25.91* 13.05* 20.65* 14.46* 12.45* HGB 7.8* -- 8.7* 8.2* 8.6* 8.6* 9.1* HCT 23.0* -- 25.8* 23.7* 24.7* 24.9* 26.7* PLT 396* -- 372* 348* 436* 436* 441* NA 135 133* -- 135 135 -- 135 K 4.1 4.5 -- 4.3 4.4 -- 4.0 CL 108 108 -- 110* 112* -- 109* TCO2 18* 16* -- 17* 19* -- 22* BUN 16 15 -- 18 19 -- 13 CREAT 0.86 0.91 -- 0.73 0.68 -- 0.63 GLU 150* 175* -- 216* 199* -- 125* PHOS 3.1 4.3 -- 3.4 3.1 -- 3.5 MG 1.9 1.8 -- 1.9 1.9 -- 1.7 CA 7.6* 7.7* -- 7.6* 7.6* -- 7.7* Radiology: No final results containing an impression from the past 48 hours were found. Pathology: No new Pathology Current Facility-Administered Medications: acetaminophen (TYLENOL) tablet 650 mg, 650 mg, Oral, Q6H, Amparo Mac MD, 650 mg at 03/21/20 0009 aspirin chewable tablet 81 mg, 81 mg, Oral, DAILY, Timur Gerardo MD, 81 mg at 03/20/20 0834 atorvastatin (LIPITOR) tablet 40 mg, 40 mg, Oral, QHS, Kandis Hough MD, 40 mg at 03/20/201941 heparin (1,000 unit/mL, 10 mL vial), 3,000 Units, Slow IV Push, FOR REBOLUSING, Timur Gerardo MD HYDROcodone-acetaminophen (NORCO) 10-325 mg tablet 1 tablet, 1 tablet, Oral, Q6HPRN, Timur Gerardo MD, 1 tablet at 03/17/20 1031 insulin NPH (HUMULIN N) injection 5 Units, 5 Units, Subcutaneous, QAM+HS, Kandis Hough MD, 5Units at 03/20/201951 lactobacillus acidophilus (ACIDOPHILLUS) 25 million cell -100 mg captab 1 tablet, 1 tablet, Oral, TID, Kandis Hough MD, 1 tablet at 03/20/201941 levothyroxine (SYNTHROID) tablet 50 mcg, 50 mcg, Oral, QAM-0600, Kandis Hough MD, 50 mcg at 03/20/20 0528 lidocaine 1% (PF) (XYLOCAINE) injection 5 mL, 5 mL, Subcutaneous, PRN, Timur Gerardo MD meropenem (MERREM) 500 mg in NaCl 0.9% (NS) 100 mL MINI-BAG, 500 mg, IV Piggyback, Q8H ABX, Kandis Hough MD, 500 mg at 03/21/20 0009 morpHINE injection 2 mg, 2 mg, Slow IV Push, Q4HPRN, Kandis Hough MD, 2 mg at 03/21/20 0009 NaCl 0.9% (NS) injection 10 mL, 10 mL, Slow IV Push, PRN, Timur Gerardo MD ondansetron (ZOFRAN (PF)) injection 4 mg, 4 mg, Slow IV Push, Q6HPRN, Kandis Hough MD, 4 mg at 03/18/20 1608 pantoprazole (PROTONIX) EC tablet 20 mg, 20 mg, Oral, DAILY, Kandis Hough MD, 20 mg at 03/20/20 0834 Sliding Scale Insulin-Regular + Fsbg Testing, , Subcutaneous, Q4H, Tiumr Gerardo MD, Stoppedat 03/20/20 1950 vancomycin 1250 mg in NS 250 mL RTU IV Piggyback 1,250 mg, 15 mg/kg, IV Piggyback, Q24H ABX, Kandis Hough MD, 1,250 mg at 03/20/20 0310 venlafaxine (EFFEXOR) tablet 75 mg, 75 mg, Oral, BID, Kandis Hough MD, 75 mg at 03/20/20 1942 Assessment & Plan: Ernie Rooney is a 59 year old male has a past medical history of Arthritis, BPH (benign prostatic hyperplasia), CAD (coronary artery disease), CVA (cerebral vascular accident), DM (diabetes mellitus), Fibromyalgia, HLD (hyperlipidemia), HTN (hypertension), CABG (2002), Kidney stones, and Major depressive disorder. S/p left BKA/. Switch to po levaquin C/w PT/Ot C/w with ID recs. Pending insurance approval Brigitte Christine MD. MPH. General Surgery. PGY5 Associated attestation - Richard Cardenas MD - 03/21/2020 3:36 PM CDTAfter discussion with Dr. Christine, I examined this patient. I agree with resident's note as written. Norman Amado MD - 03/20/2020 6:54 PM CDT INFECTIOUS DISEASES F/U NOTE Reason for Consultation: Management of antibiotics and calcaneal osteomyelitis, status post BK amputation. Chief Complaint: Left foot pain. Interval History: patient seen/examined in bed not in any distress. Wbc count inc from 13 to 20, butrepeat is 14k. No fevers. Medications: Current Facility-Administered Medications Medication Dose Route Frequency Last Rate Last Dose acetaminophen (TYLENOL) tablet 650 mg 650 mg Oral Q6H 650 mg at 03/20/20 1233 aspirin chewable tablet 81 mg 81 mg Oral DAILY 81 mg at 03/20/20 0834 atorvastatin (LIPITOR) tablet 40 mg 40 mg Oral QHS 40 mg at 03/19/20 1940 heparin (1,000 unit/mL, 10 mL vial) 3,000 Units Slow IV Push FOR REBOLUSING HYDROcodone-acetaminophen (NORCO) 10-325 mg tablet 1 tablet 1 tablet Oral Q6HPRN 1 tablet at 03/17/20 1031 insulin NPH (HUMULIN N) injection 5 Units 5 Units Subcutaneous QAM+HS 5 Units at 03/20/20 0835 lactobacillus acidophilus (ACIDOPHILLUS) 25 million cell -100 mg captab 1 tablet 1 tablet Oral TID 1 tablet at 03/20/20 1718 levothyroxine (SYNTHROID) tablet 50 mcg 50 mcg Oral QAM-0600 50 mcg at 03/20/20 0528 lidocaine 1% (PF) (XYLOCAINE) injection 5 mL 5 mL Subcutaneous PRN meropenem (MERREM) 500 mg in NaCl 0.9% (NS) 100 mL MINI-BAG 500 mg IV Piggyback Q8H ABX 500 mg at 03/20/20 1717 morpHINE injection 2 mg 2 mg Slow IV Push Q4HPRN 2 mg at 03/20/20 0834 NaCl 0.9% (NS) injection 10 mL 10 mL Slow IV Push PRN ondansetron (ZOFRAN (PF)) injection 4 mg 4 mg Slow IV Push Q6HPRN 4 mg at 03/18/20 1608 pantoprazole (PROTONIX) EC tablet 20 mg 20 mg Oral DAILY 20 mg at 03/20/20 0834 Sliding Scale Insulin-Regular + Fsbg Testing Subcutaneous Q4H 2 Units at 03/20/20 1719 vancomycin 1250 mg in NS 250 mL RTU IV Piggyback 1,250 mg 15 mg/kg IV Piggyback Q24H ABX 1,250 mg at 03/20/20 0310 venlafaxine (EFFEXOR) tablet 75 mg 75 mg Oral BID 75 mg at 03/20/20 1240 Physical Examination: Vitals: 03/20/20 0341 03/20/20 0718 03/20/20 1100 03/20/20 1600 BP: (!) 143/73 132/81 116/79 120/70 BP Location: Left arm Right arm Right arm Right arm Patient Position: Lying right side Lying right side Lying right side Lying left side Pulse: 81 81 81 79 Resp: 16 16 16 16 Temp: 35.7 C (96.2 F) 36.4 C (97.5 F) 36.4 C (97.6 F) 36.4 C (97.6 F) TempSrc: Oral Oral Oral Oral SpO2: 99% 100% 98% 98% Weight: Height: General: alert and oriented, no apparent distress Eyes: EOMI, anicteric sclerae ENT: oropharynx clear; moist mucous membranes Lungs: CTA Cardio: S1, S2 normal; no murmurs, rubs or gallops GI: abdomen soft; non-tender; non-distended; normoactive bowel sounds Extremities: no edema Skin: warm and dry; no rash Neuro: no focal deficits Hem/lymph: no LAD Status post below-knee amputation of the left leg. Laboratory: WBC (10*3/L) Date Value 03/20/2020 14.46 (H) HGB (g/dL) Date Value 03/20/2020 8.6 (L) PLT (10*3/L) Date Value 03/20/2020 436 (H) CREATININE (mg/dL) Date Value 03/20/2020 0.68 GLUCOSE (mg/dL) Date Value 03/20/2020 199 (H) ALT(SGPT) (U/L) Date Value 02/13/2019 18 ALTv (U/L) Date Value 03/16/2020 61 (H) AST(SGOT) (U/L) Date Value 03/16/2020 63 (H) ALK PHOS (U/L) Date Value 03/16/2020 196 (H) Microbiology: Blood culture 03/19/2020 sent. Wound culture 03/16/2020: Swab from left foot wound, growing 3+ E. Coli, 1+ enterococcus faecalis, 1+ skin avel. 03/16/2020: Blood culture positive for E. Coli. Radiology: 03/15/2020: Left foot x-ray showing calcaneal osteomyelitis with subcutaneous gas and skin defect. 03/16/2020: CT of left foot reviewed. 03/16/2020:Chest x-ray not showing any acute cardiopulmonary process. 03/16/2020: Renal ultrasound is essentially normal, except for right interpolar cyst. Partially decompressed urinary bladder with circumferential thickening. Possible cystitis versus bladder outlet obstruction. Assessment: 59-year-old male with history of uncontrolled diabetes hypertension hyperlipidemia coronary artery disease, stroke presents to emergency room with worsening of the wound on his left ankle. Patient found to have osteomyelitis In the left calcaneum, underwent left leg below-knee amputation. Patient blood culture grew E. Coli on 03/18/2020 Infectious disease is consulted for recommendations regarding antibiotics. #Calcaneal osteomyelitis, status post below-knee amputation. #E. Coli bacteremia likely source left calcaneum. # uncontrolled diabetes mellitus #Hypertension, hyperlipidemia, coronary artery disease, stroke Recommendations: -Stop meropenem and vancomycin.(Completed 5 days of the same.) -Start Levaquin 750 mg by mouth daily As the E. Coli is susceptible to it. We will treat for a period of 7 days(from surgery), for gram-negative bacteremia.(EOT 02/23/20) Case was discussed with attending physician. We follow peripherally please call with any Q/concerns. Thank you for the consult. Norman Amado PGY4, ID SCIENCES TEACHER Associated attestation - Quincy Schmidt MD - 03/26/2020 11:08 AM CSTI have seen and examined this patient on 03/20/20. I agree with Dr. Amado 's thorough assessment andplan. I was directly involved in the decision making process. Please see the fellow's note for further details.Colette Medina, OT - 03/20/2020 3:51 PM CDTOCCUPATIONAL THERAPY NOTE: Discharge Recommendations: Therapy Needs and Potential:- Patient would benefit from continued skilled occupational therapy services to address: Decline in basic activities of daily living, Decline in instrumental activities of daily living, Decreased strength and Decreased endurance - Patient demonstrates good potential to improve and meet therapy goals with further skilled occupational therapy services. - Patient appears motivated to improve their B/IADLs and return to their previous level of function. - Patient demonstrates ability to tolerate at least 30-60 minutes of active participation in occupational therapy. - Patient able to follow commands: 1-step Yes, Multi-step Yes, Inconsistencies No Challenges to Home Transition:- Requires physical assistance for BADLS - Requires physical assistance for IADLS - Limited caregiver availability - Increased risk of falls - Environmental barriers Patient has 14 stairs Equipment Recommendations:None Precautions: Weight bearing status: NWB L LE General: PPE Utilized: Gloves, Gown and Surgical mask, Contact and Fall Bracing: posterior knee conformer S: Patient agreeable to participate in occupational therapy. Patient states that he has been unable to get out of bed. PAIN Pre-treatment: 7/10 pain at L LE. Post-treatment: 7/10 pain at L LE. Nursing Notified and Repositioning Provided. O: Patient found semireclining in bed. knee immobilizer in place but had slid down. Patient education on repositionoing brace. Patient seen this date for the following: ADL Training Grooming: SBA/Setup while seated LB Dressing: Dependent to don R sock Toilet Transfer: Attempted stand, pivot with RW to bed side recliner, but patient unable with 2 attempts. Patient performed scooting transfer with arm rest removed and min assist. Nursing instructed to use Evette lift for back to bed due to uphill slope. Supine to sit-mod assist. Dizziness initially but decreased with sitting. Orthosis Management Orthosis donned properly upon arrival? Yes,but orthosis had migrated distally. Orthosis doffed and visible skin inspected. Some pressure noted to the lateral, posterior side ofthe knee Modifications provided for improved fit?: Yes, orthosis remolded and any creases in the thermoplast were smoothed. Orthosis donned and secured with removable straps. Written/verbal orthotic training and instructions provided re: wear, don/doff, care, and precautions: Yes Patient left sitting upright in bedside chair with call valencia in reach. Nursing informed. . A: Patient exhibited Good participation in therapy and responded well to treatment this session. Pain, Poor endurance and Persistent weakness remain(s) a limiting factor. Patient continues to present with Decreased independence with ADL, Impaired postural control, Decreased functional ROM, Decreased s trength/endurance for functional activity and Impaired safety awareness and will benefit from continued OT services to address above areas and improve functional status. P: Functional motor treatment, Patient/Caregivier Education, Equipment recommendations, Daily livingactivities, Therapeutic exercises and Neuromuscular Re-Education Wendy Medina,OTR [phone] Total Timed Treatment Codes: 55 Min Total Treatment Time: 55 Min Nicholas Toro, HEART SURGEON - 03/20/2020 12:13 PM CDTPhysical Therapy Progress Note Discharge Recommendations: Therapy Needs and Potential: Patient would benefit from continued physical therapy services to address: decline in bed mobility decline in transfers decline in gait and/or balance decreased strength decreased endurance Patient demonstrates good potential to improve and meet therapy goals with further physical therapy services. Patient appears motivated to improve their functional mobility and return to their previous levelof function. Patient demonstrates ability to tolerate atleast 30-60 minutes of physical therapy with active participation. Challenges to Home Transition: increased risk of falls decreased caregiver availability environmental barriers Equipment recommendations: wheelchair with extended legrest PAIN yes Pain Description: aching Pain Location: LLE Pain rating before treatment: does not rate / After treatment: does not rate Pain Management: Nursing notified PRECAUTIONS Weight Bearing Precaution: LLE NWB General Precautions: Fall, Contact Isolation Bracing/Cast present or required: LLE splint Oxygen: none S: Patient met in bed and agreeable with speaking with PT. Patient not wanting to participate with OOB activities stating he felt tired however open to discussion with therapist. O: Verbal session performed as follows: Patient Teaching Functional Mobility and the importance/benefits of active and safe performance with OOB activities to help prevent BLE DVT's, PNA, overall decrease in mobility, strength, and endurance BLE Strengthening Exercises -- Verbal comprehensive HEP program(s) provided along with detailed instructions on how to safely perform all reps stressing the importance of establishing a consistent schedule to help with increasing overall strength and endurance Safety and Transfer training with use of appropriate AD Weight shifting in supine position with correct frequency and duration to help prevent any possible skin breakdown Positive benefits of sitting upright at EOB or recliner throughout the day to help increase sitting tolerance and help reduce negative effects of immobility Provided patient with preferred teaching of verbal and visual information on above instructions. Patient presenting readiness to learn. Patient verbalizing understanding to all discussed. Patient leftin bed as found and call valencia provided. A: Patient today with poor activity tolerance as patient unwilling to make any attempt with OOB tasks. Patient verbalizing understanding to education provided today. P: PT will progress with mobility. Nicholas Dorman PTA Pager #: [phone] Supervising PT Michelle Toscano PT, DPT Total Timed Tx Codes in Minutes: 10 min Total Treatment Time in Minutes: 10 min Samara Terrell RN - 03/20/2020 9:08 AM CDTCare Coordinator Update: CM met with patient at the bedside to discuss discharge planning. Per primary team and PT evaluationpatient would be an appropriate candidate for inpatient rehab to regain functionality and independence to return home within the 7-14 day time frame. CM discussed this option with patient who stated that he would like to go to inpatient rehab. Patient was provided a list of choices that are in networkwith patient insurance. Patient chose [address] [address] Fax:. FRANCY will send referral and follow up. Update @ 8318: FRANCY received notification from Joaquín ([phone]) with [facility] regarding referral. Joaquínstates that she received the referral and has initiated insurance auth. Joaquín will be visiting patient today to assess for admission to rehab. FRANCY will follow up with Joaquín for updates. Update @ 1600: FRANCY received notification from Joaquín with [facility] regarding referral status. Per Joaquín, patient insurance is requiring a peer to peer to be completed for medical necessity for inpatient rehab. FRANCY provided Joaquín with Dr. Esqiuvel's contact information to complete the peer to peer and notified primary team. Joaquín states that patient has been medically accepted to rehab, but they are pendinginsurance authorization. FRANCY will follow up with updates. Ernie Rooney [id number] RE: Care Management Patient Choice Notification Your doctor has recommended that you have post-hospital care services at discharge. You can choose the provider you want, regardless of its relationship with [facility]. We will contact any of the agencieswithin the [facility] network, or any other agency upon your request. Based on where you live and agency service areas, a list was generated from: Your insurance company's in-network provider list Disclosure: [facility] owns or is affiliated with the following facilities/agencies: [facility] (alf and rehabilitation) If you are being referred to a home health agency or alf facility, you will also be given a [facility] Beneficiary Notification Letter ([id number] Profile Supplement) informing you about [facility]'s preferred partners. Patient Choice Acknowledgement I, Ernie Rooney / authorized consumer sales representative, am aware that I have choice in selecting post-hospital care providers. The [facility] has given me a list of providers in the area available to me and/or my authorized consumer sales representative. My choice(s) are listed below: ? Rehab: [facility], [address] [place] [address] () [phone] (F) [phone] Your signature on this form indicates that you have been given the following information: ? I have been advised of my right to choose the providers I wish ? If alf facilities, long-term acute care hospitals, personal care homes, or home healthagencies were recommended, I was given a list of facilities/agencies in my geographic area that deliver these services or ? I have pre-selected or am an established client with a facility/agency and choose to initiate/continue services 03/20/20 Patient/Guardian/Responsible Libertarian Signature Date Samara Cason RN, MSN [employer] [email or web address]) [phone] Amparo Mac MD - 03/20/2020 7:21 AM CDT General SURGERY DAILY PROGRESS NOTE Patient Name: Ernie Rooney Date of : 1960 Date: 03/20/2020 07:29 Surgery Date: 03/18/2020 Procedure: Left Below Knee Amputation 2 Days Post-Op Patient remains hospitalized due to post operative management and leukocytosis SUBJECTIVE: 24 HOUR EVENTS: -NAEO -AF overnight -Pulse 70s-80s -WBC 20.65, increased from 13.05 Mr. Rooney says he feels fine today. Pain is currently well controlled. Objective: Vital Signs Temp: [35.7 C (96.2 F)-36.6 C (97.9 F)] Pulse: [74-86] Resp: [16-18] BP: (132-145)/(73-85) MAP (mmHg): [93-103] Intake/Output Intake/Output Summary (Last 24 hours) at 03/20/2020 0729 Last data filed at 03/20/2020 0530 Gross per 24 hour Intake Output 720 ml Net -720 ml PHYSICAL EXAM General: resting in bed. Abdomen: soft, non tender, non distended. Extremities: left leg in splint with april bandage covering stump. Dressings changed today. Incision clean, dry, and intact Labs/Radiology Recent Results (from the past 48 hour(s)) POCT GLUCOSE (AUTOMATED) Collection Time: 03/18/20 7:48 AM Result Value Ref Range POCT GLU 170 (H) 70 - 110 mg/dL CBC WITH DIFF Collection Time: 03/18/20 9:30 AM Result Value Ref Range WBC 22.55 (H) 4.20 - 10.70 10*3/L RBC 2.74 (L) 4.26 - 5.52 10*6/L HGB 7.8 (L) 12.2 - 16.4 g/dL HCT 23.0 (L) 38.4 - 49.3 % MCV 83.9 81.7 - 95.6 fL MCH 28.5 26.1 - 32.7 pg MCHC 33.9 31.2 - 35.0 g/dL RDW-SD 46.5 38.5 - 51.6 fL RDW-CV 15.2 12.1 - 15.4 % PLT 396 (H) 150 - 328 10*3/L MPV 9.6 (L) 9.8 - 13.0 fL NRBC/100 WBC 0.0 0.0 - 10.0 /100 WBCs NRBC x10^3 <0.01 10*3/L GRAN MAT (NEUT) % 80.8 % IMM GRAN % 6.50 % LYMPH % 5.9 % MONO % 6.0 % EOS % 0.6 % BASO % 0.2 % GRAN MAT x10^3(ANC) 18.20 (H) 1.99 - 6.95 10*3/uL IMM GRAN x10^3 1.46 (H) 0.00 - 0.06 10*3/uL LYMPH x10^3 1.34 1.09 - 3.23 10*3/uL MONO x10^3 1.36 (H) 0.36 - 1.02 10*3/uL EOS x10^3 0.14 0.06 - 0.53 10*3/uL BASO x10^3 0.05 0.01 - 0.09 10*3/uL DOHLE BODIES Present (A) REACT LYMPHS Rare BASIC METABOLIC PANEL (NA, K, CL, CO2, GLUCOSE, BUN, CREATININE, CA) Collection Time: 03/18/20 9:30 AM Result Value Ref Range NA 135 135 - 145 mmol/L K 4.1 3.5 - 5.0 mmol/L CL 108 98 - 108 mmol/L CO2 TOTAL 18 (L) 23 - 31 mmol/L AGAP 9 2 - 16 BUN 16 7 - 23 mg/dL GLUCOSE 150 (H) 70 - 110 mg/dL CREATININE 0.86 0.60 - 1.25 mg/dL CALCIUM 7.6 (L) 8.6 - 10.6 mg/dL eGFR Calculation (Non-) 90.4 mL/min/1.73m2 eGFR Calculation () 109.6 mL/min/1.73m2 MAGNESIUM Collection Time: 03/18/20 9:30 AM Result Value Ref Range MAGNESIUM 1.9 1.7 - 2.4 mg/dL PHOSPHORUS Collection Time: 03/18/20 9:30 AM Result Value Ref Range PHOSPHORUS 3.1 2.5 - 5.0 mg/dL POCT GLUCOSE (AUTOMATED) Collection Time: 03/18/20 11:49 AM Result Value Ref Range POCT GLU 154 (H) 70 - 110 mg/dL Prepare Packed RBC (in units), 2 Units Collection Time: 03/18/20 2:52 PM Result Value Ref Range Cross Match Result Compatible ISBT Blood Type Code 5100 Unit Blood Type O Pos Unit Number [id number] Blood Expiration Date & Time [id number] Status Information Issued Product Identification Red Blood Cells Product Code G8718I35 Cross Match Result Compatible ISBT Blood Type Code 5100 Unit Blood Type O Pos Unit Number [id number] Blood Expiration Date & Time [id number] Status Information Issued Product Identification Red Blood Cells Product Code [id number] BASIC METABOLIC PANEL (NA, K, CL, CO2, GLUCOSE, BUN, CREATININE, CA) Collection Time: 03/18/20 4:55 PM Result Value Ref Range NA 133 (L) 135 - 145 mmol/L K 4.5 3.5 - 5.0 mmol/L CL 108 98 - 108 mmol/L CO2 TOTAL 16 (L) 23 - 31 mmol/L AGAP 9 2 - 16 BUN 15 7 - 23 mg/dL GLUCOSE 175 (H) 70 - 110 mg/dL CREATININE 0.91 0.60 - 1.25 mg/dL CALCIUM 7.7 (L) 8.6 - 10.6 mg/dL eGFR Calculation (Non-) 84.7 mL/min/1.73m2 eGFR Calculation () 102.7 mL/min/1.73m2 MAGNESIUM Collection Time: 03/18/20 4:55 PM Result Value Ref Range MAGNESIUM 1.8 1.7 - 2.4 mg/dL PHOSPHORUS Collection Time: 03/18/20 4:55 PM Result Value Ref Range PHOSPHORUS 4.3 2.5 - 5.0 mg/dL CBC WITHOUT DIFF Collection Time: 03/18/20 4:56 PM Result Value Ref Range WBC 25.91 (H) 4.20 - 10.70 10*3/L RBC 2.98 (L) 4.26 - 5.52 10*6/L HGB 8.7 (L) 12.2 - 16.4 g/dL HCT 25.8 (L) 38.4 - 49.3 % MCH 29.2 26.1 - 32.7 pg MCV 86.6 81.7 - 95.6 fL MCHC 33.7 31.2 - 35.0 g/dL PLT 372 (H) 150 - 328 10*3/L MPV 9.7 (L) 9.8 - 13.0 fL RDW-CV 14.8 12.1 - 15.4 % RDW-SD 47.0 38.5 - 51.6 fL NRBC x10^3 <0.01 10*3/L NRBC/100 WBC 0.0 0.0 - 10.0 /100 WBCs IPF % POCT GLUCOSE (AUTOMATED) Collection Time: 03/18/20 6:00 PM Result Value Ref Range POCT GLU 222 (H) 70 - 110 mg/dL POCT GLUCOSE (AUTOMATED) Collection Time: 03/18/20 9:09 PM Result Value Ref Range POCT GLU 231 (H) 70 - 110 mg/dL POCT GLUCOSE (AUTOMATED) Collection Time: 03/18/20 11:35 PM Result Value Ref Range POCT GLU 228 (H) 70 - 110 mg/dL POCT GLUCOSE (AUTOMATED) Collection Time: 03/19/20 4:03 AM Result Value Ref Range POCT GLU 241 (H) 70 - 110 mg/dL CBC WITH DIFF Collection Time: 03/19/20 4:13 AM Result Value Ref Range WBC 13.05 (H) 4.20 - 10.70 10*3/L RBC 2.82 (L) 4.26 - 5.52 10*6/L HGB 8.2 (L) 12.2 - 16.4 g/dL HCT 23.7 (L) 38.4 - 49.3 % MCV 84.0 81.7 - 95.6 fL MCH 29.1 26.1 - 32.7 pg MCHC 34.6 31.2 - 35.0 g/dL RDW-SD 45.6 38.5 - 51.6 fL RDW-CV 14.7 12.1 - 15.4 % PLT 348 (H) 150 - 328 10*3/L MPV 9.6 (L) 9.8 - 13.0 fL NRBC/100 WBC 0.0 0.0 - 10.0 /100 WBCs NRBC x10^3 <0.01 10*3/L GRAN MAT (NEUT) % 81.2 % IMM GRAN % 8.20 % LYMPH % 7.7 % MONO % 2.7 % EOS % 0.0 % BASO % 0.2 % GRAN MAT x10^3(ANC) 10.61 (H) 1.99 - 6.95 10*3/uL IMM GRAN x10^3 1.07 (H) 0.00 - 0.06 10*3/uL LYMPH x10^3 1.00 (L) 1.09 - 3.23 10*3/uL MONO x10^3 0.35 (L) 0.36 - 1.02 10*3/uL EOS x10^3 <0.03 (L) 0.06 - 0.53 10*3/uL BASO x10^3 <0.03 0.01 - 0.09 10*3/uL CIRILO CELLS 2+ (A) (none) BANDS Increased (A) BASIC METABOLIC PANEL (NA, K, CL, CO2, GLUCOSE, BUN, CREATININE, CA) Collection Time: 03/19/20 4:13 AM Result Value Ref Range NA 135 135 - 145 mmol/L K 4.3 3.5 - 5.0 mmol/L CL 110 (H) 98 - 108 mmol/L CO2 TOTAL 17 (L) 23 - 31 mmol/L AGAP 8 2 - 16 BUN 18 7 - 23 mg/dL GLUCOSE 216 (H) 70 - 110 mg/dL CREATININE 0.73 0.60 - 1.25 mg/dL CALCIUM 7.6 (L) 8.6 - 10.6 mg/dL eGFR Calculation (Non-) 109.2 mL/min/1.73m2 eGFR Calculation () 132.4 mL/min/1.73m2 MAGNESIUM Collection Time: 03/19/20 4:13 AM Result Value Ref Range MAGNESIUM 1.9 1.7 - 2.4 mg/dL PHOSPHORUS Collection Time: 03/19/20 4:13 AM Result Value Ref Range PHOSPHORUS 3.4 2.5 - 5.0 mg/dL POCT GLUCOSE (AUTOMATED) Collection Time: 03/19/20 7:20 AM Result Value Ref Range POCT GLU 217 (H) 70 - 110 mg/dL POCT GLUCOSE (AUTOMATED) Collection Time: 03/19/20 11:21 AM Result Value Ref Range POCT GLU 185 (H) 70 - 110 mg/dL BLOOD CULTURE SCREEN Collection Time: 03/19/20 1:40 PM Specimen: VENOUS; Blood Result Value Ref Range Blood Culture-Aerobic Culture In Progress No growth Blood Culture-Anaerobic Culture In Progress No growth BLOOD CULTURE SCREEN Collection Time: 03/19/20 1:40 PM Specimen: VENOUS; Blood Result Value Ref Range Blood Culture-Aerobic Culture In Progress No growth Blood Culture-Anaerobic Culture In Progress No growth POCT GLUCOSE (AUTOMATED) Collection Time: 03/19/20 4:53 PM Result Value Ref Range POCT GLU 293 (H) 70 - 110 mg/dL POCT GLUCOSE (AUTOMATED) Collection Time: 03/19/20 7:38 PM Result Value Ref Range POCT GLU 244 (H) 70 - 110 mg/dL POCT GLUCOSE (AUTOMATED) Collection Time: 03/20/20 12:13 AM Result Value Ref Range POCT GLU 221 (H) 70 - 110 mg/dL POCT GLUCOSE (AUTOMATED) Collection Time: 03/20/20 3:39 AM Result Value Ref Range POCT GLU 206 (H) 70 - 110 mg/dL CBC WITH DIFF Collection Time: 03/20/20 3:44 AM Result Value Ref Range WBC 20.65 (H) 4.20 - 10.70 10*3/L RBC 2.96 (L) 4.26 - 5.52 10*6/L HGB 8.6 (L) 12.2 - 16.4 g/dL HCT 24.7 (L) 38.4 - 49.3 % MCV 83.4 81.7 - 95.6 fL MCH 29.1 26.1 - 32.7 pg MCHC 34.8 31.2 - 35.0 g/dL RDW-SD 46.2 38.5 - 51.6 fL RDW-CV 15.2 12.1 - 15.4 % PLT 436 (H) 150 - 328 10*3/L MPV 9.6 (L) 9.8 - 13.0 fL NRBC/100 WBC 0.0 0.0 - 10.0 /100 WBCs NRBC x10^3 <0.01 10*3/L GRAN MAT (NEUT) % 81.4 % IMM GRAN % 5.40 % LYMPH % 7.7 % MONO % 5.2 % EOS % 0.1 % BASO % 0.2 % GRAN MAT x10^3(ANC) 16.81 (H) 1.99 - 6.95 10*3/uL IMM GRAN x10^3 1.12 (H) 0.00 - 0.06 10*3/uL LYMPH x10^3 1.58 1.09 - 3.23 10*3/uL MONO x10^3 1.07 (H) 0.36 - 1.02 10*3/uL EOS x10^3 <0.03 (L) 0.06 - 0.53 10*3/uL BASO x10^3 0.05 0.01 - 0.09 10*3/uL BASIC METABOLIC PANEL (NA, K, CL, CO2, GLUCOSE, BUN, CREATININE, CA) Collection Time: 03/20/20 3:44 AM Result Value Ref Range NA 135 135 - 145 mmol/L K 4.4 3.5 - 5.0 mmol/L CL 112 (H) 98 - 108 mmol/L CO2 TOTAL 19 (L) 23 - 31 mmol/L AGAP 4 2 - 16 BUN 19 7 - 23 mg/dL GLUCOSE 199 (H) 70 - 110 mg/dL CREATININE 0.68 0.60 - 1.25 mg/dL CALCIUM 7.6 (L) 8.6 - 10.6 mg/dL eGFR Calculation (Non-) 118.5 mL/min/1.73m2 eGFR Calculation () 143.7 mL/min/1.73m2 MAGNESIUM Collection Time: 03/20/20 3:44 AM Result Value Ref Range MAGNESIUM 1.9 1.7 - 2.4 mg/dL PHOSPHORUS Collection Time: 03/20/20 3:44 AM Result Value Ref Range PHOSPHORUS 3.1 2.5 - 5.0 mg/dL POCT GLUCOSE (AUTOMATED) Collection Time: 03/20/20 7:20 AM Result Value Ref Range POCT GLU 189 (H) 70 - 110 mg/dL No final results containing an impression from the past 48 hours were found. MEDICATIONS Scheduled Medicationsacetaminophen, 650 mg, Q6H aspirin, 81 mg, DAILY atorvastatin, 40 mg, QHS insulin NPH, 5 Units, QAM+HS lactobacillus acidophilus, 1 tablet, TID levothyroxine, 50 mcg, QAM-0600 meropenem (MERREM) IV piggyback, 500 mg, Q8H ABX pantoprazole, 20 mg, DAILY insulin regular human, , Q4H vancomycin Peripheral Line IV Piggyback, 15 mg/kg, Q24H ABX venlafaxine, 75 mg, BID IV Medications/Drips PRN Medicationsheparin 1000 unit/mL, 3,000 Units, FOR REBOLUSING HYDROcodone-acetaminophen, 1 tablet, Q6HPRN lidocaine 1% (PF), 5 mL, PRN morpHINE, 2 mg, Q4HPRN NaCl 0.9% (NS), 10 mL, PRN ondansetron, 4 mg, Q6HPRN Assessment: Mr. Rooney is a 59 year old male with progressive foot ulcer with osteomyelitis now s/p left BKA.He was admitted with leukocytosis which was improving, but today WBC is 20.65, up from 13.08. POD#2 Left BKA, recovering appropriately. -Continue Meropenem and Vanc for leukocytosis. Monitor CBC -Splint behind left knee to prevent contracture. Dressings changed today. -Continue working with PT/OT -Continue pain control with Tylenol, Mcguffey and Morphine Dispo: Patient is medically cleared to be discharged to rehab facility Pending rehab authorization per CM. Dominic Casas, MS4 I personally examined the patient on 03/20/2020 and have verified the medical student documentation and/or findings, including the history, physical exam, and medical decision making. Additionally, I have personally performed or re- performed the physical exam and medical decision making activities of this patient's evaluation and management service. Amparo Mac MD PGY-1 General Surgery General Surgery B - Pager #: Associated attestation - Tato Esquivel MD - 03/21/2020 2:25 PM CDTI have examined Mr Rooney and agree with the note by Dr Mac. Ready for discharge to [facility] when[facility] can get it arranged. Michelle Cooley, PT - 03/19/2020 2:29 PM CDT1 2:29 PM Physical Therapy Note PT consult received and chart review. Attempted to see patient for initial evaluation, however, patient currently with splinting procedure in progress. PT will follow up later today as schedule permits. Thank you. Michelle Toscano, PT, DPT Pager Number: [phone] Total time treatments:0 Total treatment time:0 Colette Alfaro OT - 03/19/2020 2:20 PM CDT1 1420 OCCUPATIONAL THERAPY NOTE: Discharge Recommendations: Therapy Needs and Potential:- Patient would benefit from continued skilled occupational therapy services to address: Decline in basic activities of daily living, Decline in instrumental activities of daily living, Decreased strength and Decreased endurance - Patient demonstrates good potential to improve and meet therapy goals with further skilled occupational therapy services. - Patient appears motivated to improve their B/IADLs and return to their previous level of function. - Patient demonstrates ability to tolerate at least 30-60 minutes of active participation in occupational therapy. - Patient able to follow commands: 1-step Yes, Multi-step Yes, Inconsistencies No Challenges to Home Transition:- Requires physical assistance for BADLS - Requires physical assistance for IADLS - Limited caregiver availability - Decreased safety awareness/judgement - Increased risk of falls - Environmental barriers 14 stairs to enter Equipment Recommendations:None Patient unable to tolerate out of bed this date due to dizziness and decreased alertness with sitting and standing. Wendy Medina, OTR [phone] signed by Colette Medina OT at 03/19/2020 4:14 PM Colette Alfaro OT - 03/19/2020 1:25 PM CDT1 1325 OCCUPATIONAL THERAPY NOTE: Consult received, chart reviewed, and eval attempted. Splint cart currently unavailable because it is in use. OT will return as soon as possible, at a later time this date. Wendy Medina OTR [phone] signed by Colette Medina OT at 03/19/2020 2:07 PM Amparo Tuttle MD - 03/19/2020 8:12 AM CDT General SURGERY DAILY PROGRESS NOTE Patient Name: Ernie Rooney Date of : 1960 Date: 03/19/2020 08:13 Surgery Date: 03/18/2020 Procedure: Left Below Knee Amputation 1 Day Post-Op Patient remains hospitalized due to post operative management and leukocytosis SUBJECTIVE: 24 HOUR EVENTS: -left BKA yesterday -Received 2 units PRBC intraoperatively -Hgb 8.2 this morning -AF overnight Mr. Rooney says he feels fine today. Pain is currently well controlled. He has only had water with medications since the procedure. Objective: Vital Signs Temp: [36.3 C (97.3 F)-38.1 C (100.6 F)] Heart Rate (monitor): [92] Pulse: [73-103] Resp: [10-18] BP: (110-147)/(68-89) MAP (mmHg): [84-102] Intake/Output Intake/Output Summary (Last 24 hours) at 03/19/2020 0813 Last data filed at 03/18/2020 2335 Gross per 24 hour Intake 1632 ml Output 450 ml Net 1182 ml PHYSICAL EXAM General: resting in bed. Abdomen: soft, non tender, non distended. Extremities: left leg with april bandage covering stump. Dressings not soiled. Labs/Radiology Recent Results (from the past 48 hour(s)) POCT GLUCOSE (AUTOMATED) Collection Time: 03/17/20 12:00 PM Result Value Ref Range POCT GLU 148 (H) 70 - 110 mg/dL POCT GLUCOSE (AUTOMATED) Collection Time: 03/17/20 8:38 PM Result Value Ref Range POCT GLU 170 (H) 70 - 110 mg/dL POCT GLUCOSE (AUTOMATED) Collection Time: 03/17/20 10:19 PM Result Value Ref Range POCT GLU 169 (H) 70 - 110 mg/dL Type and Screen - ONCE TENZIN Collection Time: 03/17/20 10:20 PM Result Value Ref Range ABO & RH O POSITIVE IAT Negative POCT GLUCOSE (AUTOMATED) Collection Time: 03/17/20 11:55 PM Result Value Ref Range POCT GLU 189 (H) 70 - 110 mg/dL POCT GLUCOSE (AUTOMATED) Collection Time: 03/18/20 3:46 AM Result Value Ref Range POCT GLU 183 (H) 70 - 110 mg/dL POCT GLUCOSE (AUTOMATED) Collection Time: 03/18/20 7:48 AM Result Value Ref Range POCT GLU 170 (H) 70 - 110 mg/dL CBC WITH DIFF Collection Time: 03/18/20 9:30 AM Result Value Ref Range WBC 22.55 (H) 4.20 - 10.70 10*3/L RBC 2.74 (L) 4.26 - 5.52 10*6/L HGB 7.8 (L) 12.2 - 16.4 g/dL HCT 23.0 (L) 38.4 - 49.3 % MCV 83.9 81.7 - 95.6 fL MCH 28.5 26.1 - 32.7 pg MCHC 33.9 31.2 - 35.0 g/dL RDW-SD 46.5 38.5 - 51.6 fL RDW-CV 15.2 12.1 - 15.4 % PLT 396 (H) 150 - 328 10*3/L MPV 9.6 (L) 9.8 - 13.0 fL NRBC/100 WBC 0.0 0.0 - 10.0 /100 WBCs NRBC x10^3 <0.01 10*3/L GRAN MAT (NEUT) % 80.8 % IMM GRAN % 6.50 % LYMPH % 5.9 % MONO % 6.0 % EOS % 0.6 % BASO % 0.2 % GRAN MAT x10^3(ANC) 18.20 (H) 1.99 - 6.95 10*3/uL IMM GRAN x10^3 1.46 (H) 0.00 - 0.06 10*3/uL LYMPH x10^3 1.34 1.09 - 3.23 10*3/uL MONO x10^3 1.36 (H) 0.36 - 1.02 10*3/uL EOS x10^3 0.14 0.06 - 0.53 10*3/uL BASO x10^3 0.05 0.01 - 0.09 10*3/uL DOHLE BODIES Present (A) REACT LYMPHS Rare BASIC METABOLIC PANEL (NA, K, CL, CO2, GLUCOSE, BUN, CREATININE, CA) Collection Time: 03/18/20 9:30 AM Result Value Ref Range NA 135 135 - 145 mmol/L K 4.1 3.5 - 5.0 mmol/L CL 108 98 - 108 mmol/L CO2 TOTAL 18 (L) 23 - 31 mmol/L AGAP 9 2 - 16 BUN 16 7 - 23 mg/dL GLUCOSE 150 (H) 70 - 110 mg/dL CREATININE 0.86 0.60 - 1.25 mg/dL CALCIUM 7.6 (L) 8.6 - 10.6 mg/dL eGFR Calculation (Non-) 90.4 mL/min/1.73m2 eGFR Calculation () 109.6 mL/min/1.73m2 MAGNESIUM Collection Time: 03/18/20 9:30 AM Result Value Ref Range MAGNESIUM 1.9 1.7 - 2.4 mg/dL PHOSPHORUS Collection Time: 03/18/20 9:30 AM Result Value Ref Range PHOSPHORUS 3.1 2.5 - 5.0 mg/dL POCT GLUCOSE (AUTOMATED) Collection Time: 03/18/20 11:49 AM Result Value Ref Range POCT GLU 154 (H) 70 - 110 mg/dL Prepare Packed RBC (in units), 2 Units Collection Time: 03/18/20 2:41 PM Result Value Ref Range Cross Match Result Compatible ISBT Blood Type Code 5100 Unit Blood Type O Pos Unit Number [id number] Blood Expiration Date & Time [id number] Status Information Ready Product Identification Red Blood Cells Product Code [id number] Cross Match Result Compatible ISBT Blood Type Code 5100 Unit Blood Type O Pos Unit Number [id number] Blood Expiration Date & Time [id number] Status Information Ready Product Identification Red Blood Cells Product Code [id number] Prepare Packed RBC (in units), 2 Units Collection Time: 03/18/20 2:52 PM Result Value Ref Range Cross Match Result Compatible ISBT Blood Type Code 5100 Unit Blood Type O Pos Unit Number [id number] Blood Expiration Date & Time [id number] Status Information Issued Product Identification Red Blood Cells Product Code E3860Y05 Cross Match Result Compatible ISBT Blood Type Code 5100 Unit Blood Type O Pos Unit Number [id number] Blood Expiration Date & Time [id number] Status Information Issued Product Identification Red Blood Cells Product Code [id number] BASIC METABOLIC PANEL (NA, K, CL, CO2, GLUCOSE, BUN, CREATININE, CA) Collection Time: 03/18/20 4:55 PM Result Value Ref Range NA 133 (L) 135 - 145 mmol/L K 4.5 3.5 - 5.0 mmol/L CL 108 98 - 108 mmol/L CO2 TOTAL 16 (L) 23 - 31 mmol/L AGAP 9 2 - 16 BUN 15 7 - 23 mg/dL GLUCOSE 175 (H) 70 - 110 mg/dL CREATININE 0.91 0.60 - 1.25 mg/dL CALCIUM 7.7 (L) 8.6 - 10.6 mg/dL eGFR Calculation (Non-) 84.7 mL/min/1.73m2 eGFR Calculation () 102.7 mL/min/1.73m2 MAGNESIUM Collection Time: 03/18/20 4:55 PM Result Value Ref Range MAGNESIUM 1.8 1.7 - 2.4 mg/dL PHOSPHORUS Collection Time: 03/18/20 4:55 PM Result Value Ref Range PHOSPHORUS 4.3 2.5 - 5.0 mg/dL CBC WITHOUT DIFF Collection Time: 03/18/20 4:56 PM Result Value Ref Range WBC 25.91 (H) 4.20 - 10.70 10*3/L RBC 2.98 (L) 4.26 - 5.52 10*6/L HGB 8.7 (L) 12.2 - 16.4 g/dL HCT 25.8 (L) 38.4 - 49.3 % MCH 29.2 26.1 - 32.7 pg MCV 86.6 81.7 - 95.6 fL MCHC 33.7 31.2 - 35.0 g/dL PLT 372 (H) 150 - 328 10*3/L MPV 9.7 (L) 9.8 - 13.0 fL RDW-CV 14.8 12.1 - 15.4 % RDW-SD 47.0 38.5 - 51.6 fL NRBC x10^3 <0.01 10*3/L NRBC/100 WBC 0.0 0.0 - 10.0 /100 WBCs IPF % POCT GLUCOSE (AUTOMATED) Collection Time: 03/18/20 6:00 PM Result Value Ref Range POCT GLU 222 (H) 70 - 110 mg/dL POCT GLUCOSE (AUTOMATED) Collection Time: 03/18/20 9:09 PM Result Value Ref Range POCT GLU 231 (H) 70 - 110 mg/dL POCT GLUCOSE (AUTOMATED) Collection Time: 03/18/20 11:35 PM Result Value Ref Range POCT GLU 228 (H) 70 - 110 mg/dL POCT GLUCOSE (AUTOMATED) Collection Time: 03/19/20 4:03 AM Result Value Ref Range POCT GLU 241 (H) 70 - 110 mg/dL CBC WITH DIFF Collection Time: 03/19/20 4:13 AM Result Value Ref Range WBC 13.05 (H) 4.20 - 10.70 10*3/L RBC 2.82 (L) 4.26 - 5.52 10*6/L HGB 8.2 (L) 12.2 - 16.4 g/dL HCT 23.7 (L) 38.4 - 49.3 % MCV 84.0 81.7 - 95.6 fL MCH 29.1 26.1 - 32.7 pg MCHC 34.6 31.2 - 35.0 g/dL RDW-SD 45.6 38.5 - 51.6 fL RDW-CV 14.7 12.1 - 15.4 % PLT 348 (H) 150 - 328 10*3/L MPV 9.6 (L) 9.8 - 13.0 fL NRBC/100 WBC 0.0 0.0 - 10.0 /100 WBCs NRBC x10^3 <0.01 10*3/L GRAN MAT (NEUT) % 81.2 % IMM GRAN % 8.20 % LYMPH % 7.7 % MONO % 2.7 % EOS % 0.0 % BASO % 0.2 % GRAN MAT x10^3(ANC) 10.61 (H) 1.99 - 6.95 10*3/uL IMM GRAN x10^3 1.07 (H) 0.00 - 0.06 10*3/uL LYMPH x10^3 1.00 (L) 1.09 - 3.23 10*3/uL MONO x10^3 0.35 (L) 0.36 - 1.02 10*3/uL EOS x10^3 <0.03 (L) 0.06 - 0.53 10*3/uL BASO x10^3 <0.03 0.01 - 0.09 10*3/uL CIRILO CELLS 2+ (A) (none) BANDS Increased (A) BASIC METABOLIC PANEL (NA, K, CL, CO2, GLUCOSE, BUN, CREATININE, CA) Collection Time: 03/19/20 4:13 AM Result Value Ref Range NA 135 135 - 145 mmol/L K 4.3 3.5 - 5.0 mmol/L CL 110 (H) 98 - 108 mmol/L CO2 TOTAL 17 (L) 23 - 31 mmol/L AGAP 8 2 - 16 BUN 18 7 - 23 mg/dL GLUCOSE 216 (H) 70 - 110 mg/dL CREATININE 0.73 0.60 - 1.25 mg/dL CALCIUM 7.6 (L) 8.6 - 10.6 mg/dL eGFR Calculation (Non-) 109.2 mL/min/1.73m2 eGFR Calculation () 132.4 mL/min/1.73m2 MAGNESIUM Collection Time: 03/19/20 4:13 AM Result Value Ref Range MAGNESIUM 1.9 1.7 - 2.4 mg/dL PHOSPHORUS Collection Time: 03/19/20 4:13 AM Result Value Ref Range PHOSPHORUS 3.4 2.5 - 5.0 mg/dL POCT GLUCOSE (AUTOMATED) Collection Time: 03/19/20 7:20 AM Result Value Ref Range POCT GLU 217 (H) 70 - 110 mg/dL No final results containing an impression from the past 48 hours were found. MEDICATIONS Scheduled Medicationsaspirin, 81 mg, DAILY atorvastatin, 40 mg, QHS insulin NPH, 5 Units, QAM+HS lactobacillus acidophilus, 1 tablet, TID levothyroxine, 50 mcg, QAM-0600 meropenem (MERREM) IV piggyback, 500 mg, Q8H ABX pantoprazole, 20 mg, DAILY insulin regular human, , Q4H vancomycin Peripheral Line IV Piggyback, 15 mg/kg, Q24H ABX venlafaxine, 75 mg, BID IV Medications/DripsNa CL 0.9% + KCL 20 mEq RTU, Last Rate: 150 mL/hr at 03/19/20 0251 PRN Medicationsacetaminophen, 650 mg, Q6HPRN heparin 1000 unit/mL, 3,000 Units, FOR REBOLUSING HYDROcodone-acetaminophen, 1 tablet, Q6HPRN lidocaine 1% (PF), 5 mL, PRN morpHINE, 2 mg, Q4HPRN NaCl 0.9% (NS), 10 mL, PRN ondansetron, 4 mg, Q6HPRN Assessment: Mr. Rooney is a 59 year old male with progressive foot ulcer with osteomyelitis now s/p left BKA.He was admitted with leukocytosis which is now downtrending- WBC today 13.05, from 25.91. POD#1 LeftBKA, recovering appropriately. -continue Meropenem and Vanc for leukocytosis. Monitor CBC -PT/OT consult for Place splint behind left knee to prevent contracture. -continue pain control with Tylenol, Mcguffey and Morphine -continue working on rehab placement with care management Dominicyuko Casas, MS4 I personally examined the patient on 03/19/2020 and have verified the medical student documentation and/or findings, including the history, physical exam, and medical decision making. Additionally, I have personally performed or re- performed the physical exam and medical decision making activities of this patient's evaluation and management service. Amparo Mac MD PGY-1 General Surgery General Surgery B - Pager #: Associated attestation - Tato Esquivel MD - 03/19/2020 4:33 PM CDTI have examined Mr Rooney and agree with the note by Dr Mac. Memo Salter MD - 03/18/2020 9:21 PM CDT Post operative Check note: Date: 03/18/2020 S: Resting comfortably in bed. Pain minimal. No n/v, f/c. Procedure(s): L leg BKA Physical Exam: Vitals: 03/18/20 1730 03/18/20 1742 03/18/20 1802 03/18/20 2106 BP: 110/82 (!) 147/84 126/78 BP Location: Right arm Right arm Patient Position: Supine Supine Pulse: 81 101 79 Resp: 14 16 15 Temp: 36.9 C (98.4 F) 36.5 C (97.7 F) TempSrc: Oral Oral SpO2: 100% 100% 99% 98% Weight: Height: Abd: s/nt/nd Extremities: L leg with april wrap covering area with loose compartments on palpation; nontender to palpation; no gross blood/fluid leakage soaking through wrap A/P: Ernie Rooney is a 59 year old male s/p POD 0 for L BKA for osteomyelitis of L calcaneus and L legischemia. Doing well. Plan: -continue with primary team post op orders Memo Cheatham MD, MPH Urology PGY-1 Pager: [phone] Associated attestation - Tato Esquivel MD - 03/19/2020 9:49 AM CDTI have examined Mr Rooney and agree with the note by Dr Cheatham. Samara Elise RN - 03/18/2020 1:53 PM CDTCare Coordinator Update: CM received consult regarding placement options at discharge. Patient is currently in OR. CM will discuss rehab choices (alf facility) with patient once back in room. Samara Cason RN, MSN [employer] [email or web address]) [phone] Brigitte Christine MD - 03/18/2020 12:37 PM CDTHenrvashti Rooney is a 59 year old male with DM and PVD with ecoli bacteriemia in the setting of non resolving left calcaneal osteomyelitis. Planned procedure: Left BKA. Brigitte Christine MD. MPH. General Surgery. PGY-5 03/18/2020 12:39 PM Associated attestation - Tato Esquivel MD - 03/18/2020 12:59 PM CDTI have examined Mr Rooney and discussed the planned procedure with him. He understands and consents. I agree with the notes by Dr Stevenson and Estefania. Amparo Isabel MD - 03/18/2020 10:42 AM CDT Brief Progress Note: Date of service: 03/18/20 10:43 AM Subjective: Patient is a 59 year-old male who arrived overnight from [place] for Left BKA for Left calcaneus and non healing foot ulcer. He complaints of numbness and tingling in the left foot. Weakness reported on Left side from previous stroke Objective: Vitals: 03/18/20 0705 BP: 114/65 Pulse: 103 Resp: 20 Temp: 37.7 C (99.9 F) SpO2: 94% Physical Exam: General: No acute distress. Resting comfortably in bed. Extremities: Left foot warm to touch with necrotic tissue noted in the heel as well as nonpitting edema upto the mid-leg. No abnormalities noted on the right lower extremity. Assessment: Patient is a 59 year-old male with pmh as below presenting with progressive left foot ulcer with osteomyelitis. Leukocytosis noted. Afebrile on arrival and HDS. Plan: - Plan for OR today for left BKA - consented. NPO until OR procedure. Amparo Mac MD PGY-1 General Surgery General Surgery B - Pager #: General Surgery History and Physical 03/17/2020 Reason for admission/Chief Complaint: Osteomyelitis of L calcaneus and non healing foot ulcer with e.coli bacteremia, here for BKA tomorrow HPI: 59 M with PMHx of HTN, DM, HLD, stroke with residual left sided weakness s/p pacemaker, CAD s/p CABG 2002 and multiple PCI most recently this year, and paroxysmal a fib. Non compliant with medications, unable to pay for them. Initially presented to [place] ED when an old foot ulcer present for 9 months opened up and oozed blood tinged fluid. Found to have osteomyelitis in L foot in November 2019. PICC was placed at the time and admitted to [facility] for IV abx tx but left AMA. Transferred to [place] for BKA tomorrow with Dr. Esquivel due to extensive cardiac hx and need for quality lab assoc availabilty. Past Medical History: Past Medical History: Diagnosis Date Arthritis BPH (benign prostatic hyperplasia) CAD (coronary artery disease) CVA (cerebral vascular accident) DM (diabetes mellitus) Fibromyalgia HLD (hyperlipidemia) HTN (hypertension) Hx of CABG 2002 Kidney stones Major depressive disorder Past Surgical History: Past Surgical History: Procedure Laterality Date BACK SURGERY 1997 for impinged nerve & herniated disk CHOLECYSTECTOMY 2003 CORONARY ARTERY BYPASS GRAFT [address] [facility]; for bradycardia CO CSI ANY OTHER THAN PCI 2 YR 2018 CO REMOVAL OF KIDNEY STONE 2009 Family History: Non-contributory for this encounter. Family History Problem Relation Age of Onset [place] (myocardial infarction) Father 65 Diabetes Maternal Grandmother [place] (myocardial infarction) Maternal Grandfather Stroke Maternal Grandfather Social History: Social History Socioeconomic History Marital status: Spouse name: Not on file Number of children: 0 Years of education: Not on file Highest education level: Not on file Occupational History Occupation: disabled Social Needs Financial resource strain: Somewhat hard Food insecurity Worry: Sometimes true Inability: Sometimes true Transportation needs Medical: Yes Non-medical: Yes Tobacco Use Smoking status: Former Smoker Types: Cigarettes Quit date: 2015 Years since quittin.8 Smokeless tobacco: Never Used Tobacco comment: quit [...] file Gets together: Not on file Attends [employer] service: Not on file Active member of [...] file Social History Narrative Not on file Home Medications: Current Facility-Administered Medications Medication Dose Route Frequency Last Rate Last Dose acetaminophen (TYLENOL) tablet 650 mg 650 mg Oral Q6HPRN aspirin chewable tablet 81 mg 81 mg Oral DAILY 81 mg at 03/18/20 0750 atorvastatin (LIPITOR) tablet 40 mg 40 mg Oral QHS 40 mg at 03/17/20 2112 heparin (1,000 unit/mL, 10 mL vial) 3,000 Units Slow IV Push FOR REBOLUSING HYDROcodone-acetaminophen (NORCO) 10-325 mg tablet 1 tablet 1 tablet Oral Q6HPRN 1 tablet at 03/17/20 1031 insulin NPH (HUMULIN N) injection 5 Units 5 Units Subcutaneous QAM+HS 3 Units at 03/18/20 0750 lactobacillus acidophilus (ACIDOPHILLUS) 25 million cell -100 mg captab 1 tablet 1 tablet Oral TID 1 tablet at 03/18/20 0750 levothyroxine (SYNTHROID) tablet 50 mcg 50 mcg Oral QAM-0600 50 mcg at 03/17/20 0516 lidocaine 1% (PF) (XYLOCAINE) injection 5 mL 5 mL Subcutaneous PRN meropenem (MERREM) 500 mg in NaCl 0.9% (NS) 100 mL MINI-BAG 500 mg IV Piggyback Q8H ABX 500 mg at 03/18/20 0749 morpHINE injection 2 mg 2 mg Slow IV Push Q4HPRN 2 mg at 03/17/20 2112 NaCl 0.9% (NS) 1000 mL + KCL 20 mEq IV Infusion CONTINUOUS 150 mL/hr at 03/18/20 0535 NaCl 0.9% (NS) injection 10 mL 10 mL Slow IV Push PRN ondansetron (ZOFRAN (PF)) injection 4 mg 4 mg Slow IV Push Q6HPRN 4 mg at 03/17/20 0559 pantoprazole (PROTONIX) EC tablet 20 mg 20 mg Oral DAILY 20 mg at 03/18/20 0750 Sliding Scale Insulin-Regular + Fsbg Testing Subcutaneous Q4H 2 Units at 03/18/20 0750 vancomycin 1250 mg in NS 250 mL RTU IV Piggyback 1,250 mg 15 mg/kg IV Piggyback Q24H ABX 1,250 mg at 03/18/20 0333 venlafaxine (EFFEXOR) tablet 75 mg 75 mg Oral BID 75 mg at 03/18/20 0750 Review of Systems: General/Constitutional: No change in weight, general state of health Skin/Breast: No rash HEENT: No headaches, changes in vision or hearing CV: No chest pain, palpitations, syncope, claudication Respiratory: No cough, wheezing, shortness of breath GI: No changes in appetite, abdominal pain, distention : No urinary urgency, frequency Musculoskeletal: No muscle pain, swelling Neurologic: No weakness, sensory changes acutely Vitals: BP 114/65 (BP Location: Right arm, Patient Position: Supine) | Pulse 103 | Temp 37.7 C (99.9 F) (Oral) | Resp 20 | Ht 1.702 m (5' 7") | Wt 79.4 kg (175 lb) | SpO2 94% | BMI 27.41 kg/m Physical Exam: Constitutional: No acute distress Eyes: Symmetric, pupils equal, round, extraocular movements grossly intact Cardiovascular: RRR Respiratory: partially labored breathing GI: Soft, nontender, nondistended Rectal: Deferred Skin: No jaundice, rashes, lesions Musculoskeletal: b/l decreased sensation, b/l 2+ pulses distally, pain L leg, L calcaneous wound <1 cm Neurologic: cranial nerves II-XII grossly intact Psychiatric: appropriate mood and affect, no deficits of insight or judgment Labs: Labs: CBC BMP PT/INR WBC (10*3/L) Date Value 03/18/2020 22.55 (H) NA (mmol/L) Date Value 03/18/2020 135 No results found for: PT RBC (10*6/L) Date Value 03/18/2020 2.74 (L) K (mmol/L) Date Value 03/18/2020 4.1 INR (no units) Date Value 03/16/2020 1.6 PLT (10*3/L) Date Value 03/18/2020 396 (H) CALCIUM (mg/dL) Date Value 03/18/2020 7.6 (L) HGB (g/dL) Date Value 03/18/2020 7.8 (L) CL (mmol/L) Date Value 03/18/2020 108 aPTT HCT (%) Date Value 03/18/2020 23.0 (L) BUN (mg/dL) Date Value 03/18/2020 16 APTT Patient (Seconds) Date Value 03/17/2020 67 (H) CREATININE (mg/dL) Date Value 03/18/2020 0.86 Assessment and Plan: 59 M with extensive cardiac hx who presents as a transfer from [facility] for L calcaneous ulcer and osteomyelitis with E. Coli bacteremia. --admit to Gen Surg B -zosyn IV --NPOpm, mIVF --consent obtained, risks discussed, patient amenable --case already posted Memo Cheatham MD, MPH Urology PGY-1 Pager: [phone] Associated attestation - Tato Esquivel MD - 03/18/2020 4:13 PM CDTI have examined Mr Rooney and agree with the note by Dr Mac. Chris Alan MD - 03/17/2020 9:24 AM CDT [facility] Cardiology progress note Date of Service: 03/17/2020 Ernie Rooney is a 59 years old male hospitalized for osteomyelitis. Feeling better. No cardiac events. PHYSICAL EXAM Vitals: 03/16/20200003/16/20 2356 03/17/20 0351 03/17/20 0800 BP: 104/68 99/67 117/71 134/86 Pulse: 74 82 91 95 Resp: 18 18 18 20 Temp: 36.3 C (97.4 F) 36.4 C (97.6 F) 36.3 C (97.4 F) 36.8 C (98.2 F) TempSrc: Temporal Artery Temporal Artery Temporal Artery Temporal Artery SpO2: 99% 99% 99% 97% Weight: Height: Constitutional: alert and oriented x 3 (person, place and date/time); no apparent distress ENT: normocephalic atraumatic, supple, no lymphadenopathy, no bruits, no JVD Lungs: clear to auscultation bilaterally Cardiovascular: S1, S2 normal, regular; no murmurs, rubs or gallops GI: soft; non-tender; non-distended; normoactive bowel sounds : not examined Musculoskeletal: Extremities: no clubbing, cyanosis, or edema Skin: no rashes Neuro: no focal deficits Medications: I have reviewed the patient's medications; see Medication Reconciliation. Labs: I have reviewed the patient's labs. ASSESSMENT AND PLAN Principal Problem: Osteomyelitis Active Problems: Stroke Coronary artery disease involving [place] coronary artery of [place] heart with angina pectoris Type 2 diabetes mellitus without complication, without long-term current use of insulin Essential hypertension Other hyperlipidemia Pacemaker PAF (paroxysmal atrial fibrillation) Elevated brain natriuretic peptide (BNP) level Preop cardiovascular exam Chronic diastolic congestive heart failure KORY (acute kidney injury) Preop cardiac evaluation--he has extensive h/o CAD with CABG and PCI stenting. Currently no high risk features such as angina, arrhythmia, or volume overload. His cardiac risk is probably moderate. Recommend to proceed with surgery and close cardiac monitoring. CAD--s/p CABG. S/p PCI stenting in 06/2019. Continue ASA/lipitor. Ok to hold plavix--he has not been taking it anyway. Hold metoprolol due to low BP. Troponin negative. HFpEF--Chronic. Hold lasix due to KORY. No volume overload. Watch closely. On cautious IVF. HTN--Relatively low initially but now has improved. Probably due to sepsis and dehydration. Hold antihypertensives. HLD--LDL 122 on lipitor 40 mg. Recommend to increase to 80 mg and consider adding zetia. I don't think he can afford PCSK-9i. PAfib--now in sinus rhythm. Continue Eliquis once surgery is done. Currently on IV heparin bridding. Pacemaker--Functioning well per EKG. KORY--continue IVF cautiously. Improved. Chris Geronimo MD, FAC, KALYAN Organizational Research Consultant, Division of Cardiology [facility] Curtis Estrada DO - 03/17/2020 8:00 AM CDT Nephrology Progress Note Admit Date: 03/15/2020 CPS stable without CP or SOB. No acute events overnight. Feeling better today. Temp: [36.3 C (97.4 F)-36.8 C (98.2 F)] Pulse: [82-95] Resp: [18-20] BP: (99-138)/(66-86) MAP (mmHg): [89-98] Vitals and medications reviewed in the chart. Blood work and imaging reviewed in the chart. PE: Gen: NAD HEENT: NCAT. MMM. Neck: Supple. No LAD. Lungs: CTA CVS: RRR Abd: Epigastric tenderness Ext: No C/C. LE Edema none Left foot ulcer Skin: No rash Psych: AAO Neuro: Normal speech ASSESSMENT/PLAN Ernie Rooney is a 59 year old male with PMH as listed above, admitted to the hospital with: The primary encounter diagnosis was Left foot pain. Diagnoses of Osteomyelitis of left foot, unspecified type, Gas gangrene, Chest pain in adult, and KORY (acute kidney injury) were also pertinent to this visit. A/ KORY improving with IVF. Hyponatremia Hypokalemia Acidosis Hypocalcemia CKD III with proteinuria DM II with CKD & Polyneuropathy Anemia in chronic illness Iron deficiency Vitamin D3 Deficiency P/ Continue current POC and Medications other than changes listed below. Please see chart and orders for complete details. Continue IVF. Replete potassium prn. Continue abx. Wound care as ordered. No NSAIDs. AM labs. Daily weight. 03/17/201949 Weight: 79.4 kg (175 lb) Height: 1.702 m (5' 7") Vitals: 03/17/20 1200 03/17/20 1544 03/17/20 1940 03/17/201949 BP: 138/72 100/66 114/68 Pulse: 92 95 90 Resp: 18 18 18 Temp: 36.8 C (98.2 F) 36.8 C (98.2 F) 36.7 C (98 F) TempSrc: Temporal Artery Oral SpO2: 96% 96% 100% Weight: 79.4 kg (175 lb) Height: 1.702 m (5' 7") Intake/Output Summary (Last 24 hours) at 03/17/20202146 Last data filed at 03/17/2020 0641 Gross per 24 hour Intake Output 600 ml Net -600 ml Hospital Encounter on 03/15/20 XR FOOT <3 VW LEFT Narrative XR FOOT <3 VW LEFT HISTORY: 59 years-old Male; osteo / heel COMPARISON: Left foot radiographs 02/04/2020 FINDINGS: Radiographs of the left foot demonstrate soft tissue swelling and subcutaneous gas in the plantar aspect of the hindfoot with a skin defect identified in the heel. Focal osteopenia and bone erosions are noted along the posterior aspect of the calcaneus. There is no acute fracture or dislocation. Prominent talonavicular dorsal osteophytosis and subchondral cystic changes are noted. Diabetes type vascular calcifications are noted. Impression Skin defect and subcutaneous gas in the heel with suspected osteomyelitis of the posterior calcaneus. Moderate midfoot osteoarthrosis. Preliminary Report Dictated by Resident: Sergio Thomas I, Lexi Palacio MD., have reviewed this study and agree with the above report. CT FOOT LEFT WO CONTRAST Narrative CT FOOT LEFT WO CONTRAST HISTORY: 59 years-old; Male; Osteomyelitis suspected, foot swelling, diabetic COMPARISON: Left foot radiographs 03/16/2020 TECHNIQUE: CT imaging of the left foot tissues and bones is obtained in 3.0 mm intervals without IV contrast. Sagittal and coronal reconstructions are generated and reviewed. BONE: Bone erosions and periosteal reaction are seen along the posterior calcaneus. Extensive intramedullary gas is noted throughout the calcaneus. There is no acute fracture or dislocation. Well-corticated osseous fragment distal to the medial malleolus (2:27) is likely due to a remote avulsion fracture. SOFT TISSUES: Significant soft tissue swelling and extensive subcutaneous gas are noted along the plantar aspect of the midfoot and hindfoot with a skin defect in the medial aspect of the heel. Soft tissue gas is also noted deep to the plantar fascia as well as the middle articular surface of the calcaneus. Vascular calcifications are seen. Impression Findings consistent with calcaneal osteomyelitis with extensive calcaneal intramedullary gas. Skin defect in the medial heel with extensive soft tissue swelling and gas, including deep to the plantar fascia. Intra-articular gas in the subtalar joint may represent septic arthritis. Preliminary Report Dictated by Resident: Sergio Thomas I, Lexi Palacio MD., have reviewed this study and agree with the above report. US RETROPERITONEAL COMPLETE Narrative ULTRASOUND RENAL INDICATION: KORY COMPARISON: 11/17/2019. FINDINGS: Right kidney measures 12.8 x 6.7 x 5.7 cm. There is normal renal cortical echogenicity and corticomedullary differentiation. No hydronephrosis or renal calculi. Right interpolar region cyst measuring 2.4 x 2.1 x 1.9 cm. There is qualitatively normal perfusion on color doppler interrogation. Left kidney measures 11.9 x 6.5 x 5.3 cm. There is normal renal cortical echogenicity and corticomedullary differentiation. No hydronephrosis or renal calculi. There is qualitatively normal perfusion on color doppler interrogation. Partially decompressed urinary bladder is circumferentially thickened out of proportion to degree of distention. Urinary bladder wall measures 8 mm in thickness. Partially visualized liver appears diffusely steatotic. Impression Essentially normal renal ultrasound except for right interpolar region cyst. Partially decompressed urinary bladder with circumferentially thickened shirley. Findings can be seen with cystitis and/or degree of chronic urinary bladder outlet obstruction. Correlate with UA. Partially visualized diffuse hepatic steatosis. XR CHEST 1 VW Narrative EXAM: XR CHEST 1 VW 03/16/2020 3:36 AM HISTORY: 59 years-old Male with SOB TECHNIQUE: Portable erect AP view of the chest. COMPARISON: X-ray chest 02/04/2020, CT chest angiogram 02/03/2020 FINDINGS: Lines and tubes: Dual-chamber pacemaker lead tips project over the right atrium and right ventricle. Sternotomy wires are unchanged. Proximal left subclavian artery vascular stent is noted. Cholecystectomy and left upper quadrant surgical clips visualized. Cardiomediastinal: The cardiomediastinal silhouette is unchanged. Lungs and pleura: Suboptimal inspiratory volumes resulting in bronchial vascular crowding. Lungs are otherwise clear. No focal consolidation, pneumothorax. No discernible pneumothorax or pleural effusion. Musculoskeletal: No acute osseous abnormality. Impression No acute cardiopulmonary process. Preliminary Report Dictated by Resident: Mango Mitchell MD., have reviewed this study and agree with the above report. Recent Results (from the past 48 hour(s)) Lactic Acid Whole Blood Collection Time: 03/16/20 12:56 AM Result Value Ref Range LACTIC ACID 4.72 mmol/L Blood Culture - Peripheral # 1 Collection Time: 03/16/20 12:57 AM Specimen: VENOUS; Blood Result Value Ref Range Blood Culture-Aerobic (AA) No growth Culture positive. See Blood Culture Workup for additional information. Blood Culture-Anaerobic (AA) No growth Culture positive. See Blood Culture Workup for additional information. Blood Culture - Peripheral # 2 Collection Time: 03/16/20 12:57 AM Specimen: VENOUS; Blood Result Value Ref Range Blood Culture-Aerobic (AA) No growth Culture positive. See Blood Culture Workup for additional information. Blood Culture-Anaerobic No growth at 24 hours No growth CBC WITH DIFF Collection Time: 03/16/20 12:57 AM Result Value Ref Range WBC 19.31 (H) 4.20 - 10.70 10*3/L RBC 3.51 (L) 4.26 - 5.52 10*6/L HGB 9.9 (L) 12.2 - 16.4 g/dL HCT 28.5 (L) 38.4 - 49.3 % MCV 81.2 (L) 81.7 - 95.6 fL MCH 28.2 26.1 - 32.7 pg MCHC 34.7 31.2 - 35.0 g/dL RDW-SD 38.5 38.5 - 51.6 fL RDW-CV 13.0 12.1 - 15.4 % PLT 339 (H) 150 - 328 10*3/L MPV 10.6 9.8 - 13.0 fL NRBC/100 WBC 0.0 0.0 - 10.0 /100 WBCs NRBC x10^3 <0.01 10*3/L GRAN MAT (NEUT) % 82.8 % IMM GRAN % 3.40 % LYMPH % 7.1 % MONO % 4.9 % EOS % 1.2 % BASO % 0.6 % GRAN MAT x10^3(ANC) 16.00 (H) 1.99 - 6.95 10*3/uL IMM GRAN x10^3 0.65 (H) 0.00 - 0.06 10*3/uL LYMPH x10^3 1.38 1.09 - 3.23 10*3/uL MONO x10^3 0.94 0.36 - 1.02 10*3/uL EOS x10^3 0.23 0.06 - 0.53 10*3/uL BASO x10^3 0.11 (H) 0.01 - 0.09 10*3/uL COMP. METABOLIC PANEL (88750) Collection Time: 03/16/20 12:57 AM Result Value Ref Range NA 134 (L) 135 - 145 mmol/L K 4.1 3.5 - 5.0 mmol/L CL 100 98 - 108 mmol/L CO2 TOTAL 16 (L) 23 - 31 mmol/L AGAP 18 (H) 2 - 16 BUN 41 (H) 7 - 23 mg/dL GLUCOSE 382 (H) 70 - 110 mg/dL CREATININE 1.74 (H) 0.60 - 1.25 mg/dL TOTAL BILI 0.6 0.1 - 1.1 mg/dL CALCIUM 8.6 8.6 - 10.6 mg/dL T PROTEIN 6.5 6.3 - 8.2 g/dL ALBUMIN 3.1 (L) 3.5 - 5.0 g/dL ALK PHOS 196 (H) 34 - 122 U/L ALTv 61 (H) 5 - 50 U/L AST(SGOT) 63 (H) 13 - 40 U/L eGFR Calculation (Non-) 40.1 mL/min/1.73m2 eGFR Calculation () 48.6 mL/min/1.73m2 GLYCOSYLATED HEMOGLOBIN (A1C) Collection Time: 03/16/20 12:57 AM Result Value Ref Range HGB A1C 10.8 (H) 4.0 - 6.0 % LIPID PANEL (19617)(TOTAL CHOLESTEROL, TRIGLYCERIDES, HDL) Collection Time: 03/16/20 12:57 AM Result Value Ref Range CHOL 174 120 - 200 mg/dL HDL 13 (L) >40 mg/dL HDLC RATIO 13.4 (H) <=5.0 TRIG 490 (H) 30 - 170 mg/dL LDL CHOL VLDL 98 (H) 5 - 60 mg/dL SEDIMENTATION RATE Collection Time: 03/16/20 12:57 AM Result Value Ref Range ESR 35 (H) 0 - 10 mm/HR LOW-DENSITY LIPOPROTEIN, DIRECT Collection Time: 03/16/20 12:57 AM Result Value Ref Range dLDL Chol 42 <130 mg/dL THYROID STIMULATING HORMONE Collection Time: 03/16/20 12:57 AM Result Value Ref Range TSH 1.63 0.45 - 4.70 mIU/L N-TERMINAL PRO-BNP Collection Time: 03/16/20 12:57 AM Result Value Ref Range NT-proBNP 2,680 (H) <=125 pg/mL TROPONIN I Collection Time: 03/16/20 12:57 AM Result Value Ref Range TROPONIN I 0.020 <=0.034 ng/mL IRON Collection Time: 03/16/20 12:57 AM Result Value Ref Range IRON 11 (L) 50 - 160 ug/dL FERRITIN SERUM Collection Time: 03/16/20 12:57 AM Result Value Ref Range FERRITIN 255.0 18.0 - 464.0 ng/mL URIC ACID Collection Time: 03/16/20 12:57 AM Result Value Ref Range URIC ACID 10.1 (H) 3.6 - 8.0 mg/dL BLOOD CULTURE WORKUP Collection Time: 03/16/20 12:57 AM Specimen: VENOUS; Blood Result Value Ref Range Blood Culture Workup Escherichia coli Gram stain Isolated from anaerobic bottle Gram negative bacilli Gram stain Isolated from aerobic bottle Gram negative bacilli Susceptibility Escherichia coli - SUSCEPTIBILITY TESTING Amoxacillin/Clavulanic acid 8 Susceptible Ampicillin >=32 Resistant Ampicillin/Sulbactam >=32 Resistant Cefazolin <=4 Susceptible Cefotaxime <=1 Susceptible Ciprofloxacin <=0.25 Susceptible Ertapenem <=0.5 Susceptible Gentamicin <=1 Susceptible Levofloxacin <=0.12 Susceptible Piperacillin/Tazobactam <=4 Susceptible Trimethoprim/Sulfamethoxazole <=20 Susceptible GRAM NEGATIVE BLOOD PATHOGENS DNA PROBE-ANAEROBIC Collection Time: 03/16/20 12:57 AM Specimen: VENOUS; Blood Result Value Ref Range Escherichia coli Positive (A) Negative, See Comment/Narrative BLOOD CULTURE WORKUP Collection Time: 03/16/20 12:57 AM Specimen: VENOUS; Blood Result Value Ref Range Gram stain Isolated from aerobic bottle Gram negative bacilli COVID-19 (ID NOW RAPID TESTING) Collection Time: 03/16/20 2:33 AM Specimen: NASOPHARYNGEAL SWAB Result Value Ref Range SARS-CoV-2 Rapid ID NOW Not Detected Not Detected LAB ONLY COVID INTERPRETATION Collection Time: 03/16/20 2:33 AM Specimen: NASOPHARYNGEAL SWAB Result Value Ref Range COVID DMT Interpretation Interpretation/Recommendations: Tests (PCR) for Active Infection by COVID-19 Virus: This patient has tested negative for the COVID-19 virus more than three times with no prior history of a positive result. It is possible that at least one of these tests is a false negative, which occurs with nasopharyngeal samples. This occurs because the virus is predominantly in the lung and out ofreach of the nasopharyngeal swab. However, based upon greater than three negative tests with no prior positive results, the patient is unlikely to have an active infection. Tests for IgM and/or IgG Antibodies to COVID-19 Virus: A. A test for IgM antibody to the COVID-19 virus is likely to be highly informative at this time. IgM antibodies to the COVID-19 virus identified in a high performing test, usually an THEO or chemiluminescence-based assay, should appear in most patients who are truly infected within approximately a week from the onset of symptoms, and in nearly all patients 2 to 3 weeks after symptoms begin. If the high performing IgM test is positive, even if the initial PCR test for active infection was negative, it is highly probable the patient has been infected with the virus at some point. A repeat PCR test to determine if the patient has recovered from the infection would be important to perform if the Ig M [id number] antibody test is positive. B. A test for IgG antibodies to the COVID-19 virus was not performed and is also likely to be informative. The sample for the IgG antibody test should be collected 2 or more weeks post onset of symptoms. It is the IgG antibodies that can confer long-term immunity to infectious agents. However, at this time, it is not known if the production of IgG antibodies indicates whether the patient is immune to future infections with the COVID-19 virus. It is also not known how long IgG antibodies to the COVID-19 virus persist, and therefore the length of immunity to future COVID-19 infections. C. Although it is uncommon, some patients cannot ever mount an antibody response to infectious agents, such as COVID-19. If there are persistently negative results for IgM and IgG antibodies, this may be the explanation. Disclaimer: These interpretation comments are based upon aggregate data pooled from the [facility] medical recordincluding both current and prior COVID-19 related testing results for the following tests: SARS-CoV-2 PCR, SARS-CoV-2 Rapid ID NOW, CoV-2 IgM, and CoV-2 IgG. These interpretations are autopopulated into [employer] based on computerized algorithms matching an interpretation code number to the patient's set of test results. While a clinical pathologist evaluates the combinations for clinical accuracy, clinical correlation is recommended as it may not take into account very remote prior testing. Furthermore,it does not consider testing a patient may have had outside of the [facility] system. Additionally, it should be noted that the computerized algorithm treats the results for PCR testingand Rapid ID NOW testing (also PCR) synonymously, and thus, refers to both testing methodologies as PCR tests. Given that the sensitivity of [facility]'s Rapid ID NOW testing platform is analogous to PCR-based methods, for most patients this has no significant implications for clinical decision making. However, if a patient with a negative result for Rapid ID NOW continues to have a clinical presentation consistent with COVID-19 infection, negative results should be treated as presumptive negative and a new specimen should be tested with alternative PCR molecular test. COVID Results SARS-CoV-2 Rapid ID NOW (no units) Date Value 03/16/2020 Not Detected 02/03/2020 Not Detected 11/16/2019 Not Detected 09/17/2019 Not Detected Lactic Acid Whole Blood Collection Time: 03/16/20 3:24 AM Result Value Ref Range LACTIC ACID 2.60 mmol/L WOUND CULTURE Collection Time: 03/16/20 4:48 AM Specimen: FOOT, LEFT; Swab Result Value Ref Range Wound Culture 1+ Skin avel Wound Culture 3+ Escherichia coli Wound Culture 1+ Enterococcus species Gram stain Numerous Gram positive cocci Gram stain Few Gram positive bacilli Gram stain Moderate PMNs or Mononuclear cells observed POCT GLUCOSE (AUTOMATED) Collection Time: 03/16/20 7:53 AM Result Value Ref Range POCT GLU 286 (H) 70 - 110 mg/dL BASIC METABOLIC PANEL (NA, K, CL, CO2, GLUCOSE, BUN, CREATININE, CA) Collection Time: 03/16/20 9:20 AM Result Value Ref Range NA 135 135 - 145 mmol/L K 2.7 (LL) 3.5 - 5.0 mmol/L CL 107 98 - 108 mmol/L CO2 TOTAL 17 (L) 23 - 31 mmol/L AGAP 11 2 - 16 BUN 39 (H) 7 - 23 mg/dL GLUCOSE 259 (H) 70 - 110 mg/dL CREATININE 1.46 (H) 0.60 - 1.25 mg/dL CALCIUM 7.3 (L) 8.6 - 10.6 mg/dL eGFR Calculation (Non-) 49.1 mL/min/1.73m2 eGFR Calculation () 59.5 mL/min/1.73m2 Prothrombin Time (PT) / INR Collection Time: 03/16/20 9:20 AM Result Value Ref Range PROTIME PATIENT 17.9 (H) 12.0 - 14.7 Seconds INR 1.6 aPTT Collection Time: 03/16/20 9:20 AM Result Value Ref Range APTT Patient 38 23 - 38 Seconds MAGNESIUM Collection Time: 03/16/20 9:20 AM Result Value Ref Range MAGNESIUM 2.0 1.7 - 2.4 mg/dL PHOSPHORUS Collection Time: 03/16/20 9:20 AM Result Value Ref Range PHOSPHORUS 4.0 2.5 - 5.0 mg/dL URINALYSIS Collection Time: 03/16/20 10:50 AM Result Value Ref Range APPEARANCE Hazy (A) Clear COLOR Yellow Yellow PH 5.0 4.8 - 8.0 SP GRAVITY 1.021 1.003 - 1.030 GLU U QUAL 150 mg/dL (A) Normal BLOOD Negative Negative KETONES Negative Negative PROTEIN 30 mg/dL (A) Negative UROBILIN Normal Normal BILIRUBIN Negative Negative NITRITE Negative Negative LEUK PETER Negative Negative RBC/HPF 8 (H) 0 - 3 HPF WBC/HPF 7 (H) 0 - 5 HPF BACTERIA Negative Negative AMORPHOUS Rare Rare HPF HYAL CAST 17 (H) <=2 LPF POCT GLUCOSE (AUTOMATED) Collection Time: 03/16/20 11:21 AM Result Value Ref Range POCT GLU 246 (H) 70 - 110 mg/dL BASIC METABOLIC PANEL (NA, K, CL, CO2, GLUCOSE, BUN, CREATININE, CA) Collection Time: 03/16/20 4:26 PM Result Value Ref Range NA 134 (L) 135 - 145 mmol/L K 3.5 3.5 - 5.0 mmol/L CL 106 98 - 108 mmol/L CO2 TOTAL 15 (L) 23 - 31 mmol/L AGAP 13 2 - 16 BUN 37 (H) 7 - 23 mg/dL GLUCOSE 226 (H) 70 - 110 mg/dL CREATININE 1.37 (H) 0.60 - 1.25 mg/dL CALCIUM 7.4 (L) 8.6 - 10.6 mg/dL eGFR Calculation (Non-) 52.8 mL/min/1.73m2 eGFR Calculation () 64.0 mL/min/1.73m2 aPTT (for use with Heparin Drip) Collection Time: 03/16/20 4:26 PM Result Value Ref Range APTT Patient 101 (HH) 23 - 38 Seconds POCT GLUCOSE (AUTOMATED) Collection Time: 03/16/20 4:50 PM Result Value Ref Range POCT GLU 232 (H) 70 - 110 mg/dL Type and Screen - ONCE Routine Collection Time: 03/16/20 6:00 PM Result Value Ref Range ABO & RH O Positive IAT Negative POCT GLUCOSE (AUTOMATED) Collection Time: 03/16/20 9:09 PM Result Value Ref Range POCT GLU 232 (H) 70 - 110 mg/dL ACTIVATED PARTIAL THRMPLAS AMARILIS Collection Time: 03/16/20 11:02 PM Result Value Ref Range APTT Patient 87 (H) 23 - 38 Seconds POCT GLUCOSE (AUTOMATED) Collection Time: 03/16/20 11:55 PM Result Value Ref Range POCT GLU 207 (H) 70 - 110 mg/dL POCT GLUCOSE (AUTOMATED) Collection Time: 03/17/20 3:50 AM Result Value Ref Range POCT GLU 179 (H) 70 - 110 mg/dL Vancomycin Trough Level - Draw within 30 minutes prior to 4TH dose. Collection Time: 03/17/20 4:02 AM Result Value Ref Range VANCO TROUGH 5.0 (L) 10.0 - 20.0 ug/mL Basic Metabolic Panel (NA, K, CL, CO2, GLUCOSE, BUN, CREATININE, CA) Collection Time: 03/17/20 4:02 AM Result Value Ref Range NA 134 (L) 135 - 145 mmol/L K 3.9 3.5 - 5.0 mmol/L CL 109 (H) 98 - 108 mmol/L CO2 TOTAL 16 (L) 23 - 31 mmol/L AGAP 9 2 - 16 BUN 32 (H) 7 - 23 mg/dL GLUCOSE 176 (H) 70 - 110 mg/dL CREATININE 1.16 0.60 - 1.25 mg/dL CALCIUM 7.6 (L) 8.6 - 10.6 mg/dL eGFR Calculation (Non-) 64.0 mL/min/1.73m2 eGFR Calculation () 77.6 mL/min/1.73m2 CBC with Differential Collection Time: 03/17/20 4:02 AM Result Value Ref Range WBC 23.65 (H) 4.20 - 10.70 10*3/L RBC 2.86 (L) 4.26 - 5.52 10*6/L HGB 8.0 (L) 12.2 - 16.4 g/dL HCT 24.1 (L) 38.4 - 49.3 % MCV 84.3 81.7 - 95.6 fL MCH 28.0 26.1 - 32.7 pg MCHC 33.2 31.2 - 35.0 g/dL RDW-SD 43.5 38.5 - 51.6 fL RDW-CV 14.1 12.1 - 15.4 % PLT 334 (H) 150 - 328 10*3/L MPV 10.3 9.8 - 13.0 fL NRBC/100 WBC 0.0 0.0 - 10.0 /100 WBCs NRBC x10^3 <0.01 10*3/L SEG % 65 33 - 76 % BAND % 29 (H) 0 - 1 % MYELO % 2 (H) <=0 % LYMPH % 4 (L) 14 - 54 % ANC 22.23 (H) 1.99 - 6.95 10*3/uL PLT ESTIMATE Increased (A) Normal ACTIVATED PARTIAL THRMPLAS AMARILIS Collection Time: 03/17/20 4:06 AM Result Value Ref Range APTT Patient 67 (H) 23 - 38 Seconds POCT GLUCOSE (AUTOMATED) Collection Time: 03/17/20 7:53 AM Result Value Ref Range POCT GLU 167 (H) 70 - 110 mg/dL POCT GLUCOSE (AUTOMATED) Collection Time: 03/17/20 12:00 PM Result Value Ref Range POCT GLU 148 (H) 70 - 110 mg/dL POCT GLUCOSE (AUTOMATED) Collection Time: 03/17/20 8:38 PM Result Value Ref Range POCT GLU 170 (H) 70 - 110 mg/dL Current Facility-Administered Medications Medication Dose Route Frequency Last Rate Last Dose acetaminophen (TYLENOL) tablet 650 mg 650 mg Oral Q6HPRN aspirin chewable tablet 81 mg 81 mg Oral DAILY Stopped at 03/17/20 0900 atorvastatin (LIPITOR) tablet 40 mg 40 mg Oral QHS 40 mg at 03/17/20 2112 heparin (1,000 unit/mL, 10 mL vial) 3,000 Units Slow IV Push FOR REBOLUSING HYDROcodone-acetaminophen (NORCO) 10-325 mg tablet 1 tablet 1 tablet Oral Q6HPRN 1 tablet at 03/17/20 1031 insulin NPH (HUMULIN N) injection 5 Units 5 Units Subcutaneous QAM+HS 5 Units at 03/17/20 0828 lactobacillus acidophilus (ACIDOPHILLUS) 25 million cell -100 mg captab 1 tablet 1 tablet Oral TID 1 tablet at 03/17/20 1314 levothyroxine (SYNTHROID) tablet 50 mcg 50 mcg Oral QAM-0600 50 mcg at 03/17/20 0516 lidocaine 1% (PF) (XYLOCAINE) injection 5 mL 5 mL Subcutaneous PRN meropenem (MERREM) 500 mg in NaCl 0.9% (NS) 100 mL MINI-BAG 500 mg IV Piggyback Q8H ABX 500 mg at 03/17/20 1707 morpHINE injection 2 mg 2 mg Slow IV Push Q4HPRN 2 mg at 03/17/20 2112 NaCl 0.9% (NS) 1000 mL + KCL 20 mEq IV Infusion CONTINUOUS 150 mL/hr at 03/17/20 0024 NaCl 0.9% (NS) injection 10 mL 10 mL Slow IV Push PRN ondansetron (ZOFRAN (PF)) injection 4 mg 4 mg Slow IV Push Q6HPRN 4 mg at 03/17/20 0559 pantoprazole (PROTONIX) EC tablet 20 mg 20 mg Oral DAILY Stopped at 03/17/20 0900 Sliding Scale Insulin-Regular + Fsbg Testing Subcutaneous Q4H 2 Units at 03/17/206 vancomycin 1250 mg in NS 250 mL RTU IV Piggyback 1,250 mg 15 mg/kg IV Piggyback Q24H ABX 1,250 mg at 03/17/20 0402 venlafaxine (EFFEXOR) tablet 75 mg 75 mg Oral BID 75 mg at 03/17/20 0830 Pauline Cox DO - 03/17/2020 7:52 AM CDT ADC SURGERY DAILY PROGRESS NOTE Patient Name: Ernie Rooney Date of : 1960 Date: 03/17/2020 Continues to be hospitalized due to need for IV antibiotics and Left BKA for osteomyelitis SUBJECTIVE: 24 HOUR EVENTS: - NAEO - WBC increased to 23 from 19 on Vanc and Merrem - Blood culture positive for e Coli - Wound culture shows gram positive cocci and gram positive bacilli - HDS - On heparin drip - Pain unchanged Objective: Vital Signs Temp: [36.3 C (97.4 F)-36.8 C (98.2 F)] Pulse: [74-95] Resp: [18-20] BP: (99-138)/(66-86) MAP (mmHg): [89-98] Intake/Output Intake/Output Summary (Last 24 hours) at 03/17/2020 1653 Last data filed at 03/17/2020 0641 Gross per 24 hour Intake 399 ml Output 600 ml Net -201 ml PHYSICAL EXAM General: alert and oriented x3 NAD HEENT: EOMI CV: RRR Resp: CTAB Abdomen: soft, NT, ND Extremities/Musculoskeletal: moves all extremities Labs Labs: CBC BMP PT/INR WBC (10*3/L) Date Value 03/17/2020 23.65 (H) NA (mmol/L) Date Value 03/17/2020 134 (L) No results found for: PT RBC (10*6/L) Date Value 03/17/2020 2.86 (L) K (mmol/L) Date Value 03/17/2020 3.9 INR (no units) Date Value 03/16/2020 1.6 PLT (10*3/L) Date Value 03/17/2020 334 (H) CALCIUM (mg/dL) Date Value 03/17/2020 7.6 (L) HGB (g/dL) Date Value 03/17/2020 8.0 (L) CL (mmol/L) Date Value 03/17/2020 109 (H) aPTT HCT (%) Date Value 03/17/2020 24.1 (L) BUN (mg/dL) Date Value 03/17/2020 32 (H) APTT Patient (Seconds) Date Value 03/17/2020 67 (H) CREATININE (mg/dL) Date Value 03/17/2020 1.16 Radiology Xr Chest 1 Vw Result Date: 03/16/2020 No acute cardiopulmonary process. Preliminary Report Dictated by Resident: Nataly Gaffney I, Mango Thomas MD., have reviewed this study and agree with the above report. Us Retroperitoneal Complete Result Date: 03/16/2020 Essentially normal renal ultrasound except for right interpolar region cyst. Partially decompressed urinary bladder with circumferentially thickened shirley. Findings can be seen with cystitis and/or degree of chronic urinary bladder outlet obstruction. Correlate with UA. Partially visualized diffuse hepatic steatosis. Ct Foot Left Wo Contrast Result Date: 03/16/2020 Findings consistent with calcaneal osteomyelitis with extensive calcaneal intramedullary gas. Skin defect in the medial heel with extensive soft tissue swelling and gas, including deep to the plantar fascia. Intra-articular gas in the subtalar joint may represent septic arthritis. Preliminary Report Dictated by Resident: Lexi Gibson MD., have reviewed this study and agree with the above report. Xr Foot <3 Vw Left Result Date: 03/16/2020 Skin defect and subcutaneous gas in the heel with suspected osteomyelitis of the posterior calcaneus. Moderate midfoot osteoarthrosis. Preliminary Report Dictated by Resident: Shobha Gibson MD., have reviewed this study and agree with the above report. MEDICATIONS Scheduled Medicationsaspirin, 81 mg, DAILY atorvastatin, 40 mg, QHS insulin NPH, 5 Units, QAM+HS lactobacillus acidophilus, 1 tablet, TID levothyroxine, 50 mcg, QAM-0600 meropenem (MERREM) IV piggyback, 500 mg, Q8H ABX pantoprazole, 20 mg, DAILY insulin regular human, , Q4H vancomycin Peripheral Line IV Piggyback, 15 mg/kg, Q24H ABX venlafaxine, 75 mg, BID IV Medications/DripsNa CL 0.9% + KCL 20 mEq RTU, Last Rate: 150 mL/hr at 03/17/20 0024 PRN Medicationsacetaminophen, 650 mg, Q6HPRN heparin 1000 unit/mL, 3,000 Units, FOR REBOLUSING HYDROcodone-acetaminophen, 1 tablet, Q6HPRN lidocaine 1% (PF), 5 mL, PRN morpHINE, 2 mg, Q4HPRN NaCl 0.9% (NS), 10 mL, PRN ondansetron, 4 mg, Q6HPRN Assessment: Ernie Rooney is a 59 year old male with osteomyelitis of the left calcaneous and non-healing footulcer with e coli bacteremia Plan: - Due to high likelihood of cardiac event intra/post operatively, discussion among anesthesia and surgery determined that the patient may need to be at a facility with quality lab assoc available - Patient with multiple stents and medical noncompliance - stents have clotted repeatedly - Will transfer to [place] for left BKA as there is a quality lab assoc there - Rest of care per primary team Patient seen and examined with Dr. Shiva Wall, General Surgery PGY-2 Associated attestation - Amarilys Shannon MD - 03/18/2020 4:44 PM CDTAttending Attestation: I personally evaluated and examined the patient on 03/17/[address] Wall's progress note as written. I actively participated in the decision- making process. Please see the resident's note for additional details. Plan for left BKA. Anesthesia recommends transfer to [facility] for higher level of care from a cardiac standpoint. Discussed with Dr. Esquivel who will accept patient. Discussed with Dr. Gerardo who will arrange transfer. Amarilys Shannon M.D. 03/18/2020 16:42Timur Gerardo MD - 03/16/2020 1:21 PM CDTHospitalist update: Patient was evaluated by Dr. Slate for acute on chronic left heel osteo. Has failed IV antibiotics and hyperbaric O2 at LTAC. Overall non-compliant and left from there AMA. Dr. Mancera discussed treatment options with patient - agreeable to left BKA. Discussed with vascular Dr. Heath who reviewed the patient's images and also agrees with BKA. Dr. Shannon on board for surgery tomorrow. Patient is moderate to high risk given hx CAD s/p multiple PCI (9 total), last stent to rca 06/2019 and non-compliant with DAPT. Also with hx TIAs, CHF, s/p PPM, a-fib on eliquis. Eliquis has been on hold. Cardiology Dr. Geronimo on board - patient is moderate risk but does not believe his comorbidities are prohibitive for urgent surgery. Will start on aspirin and heparin drip. Anesthesia notified of need for pre-op assessment as well. Concern for severe sepsis this morning given hypotension but resolved with IVF bolus,will increase continuous IVF and monitor UOP. Initial labs concerning for mild DKA but now resolved.Replete K. Low threshold to transfer to IMU if needed. Timur Gerardo MD Hospitalist mitKimi huntley [facility] - 03/16/2020 9:30 AM CDTSubjective Patient ID: Ernie Rooney is a 59 year old male. Care Management Social Functional Assessment Patient Name: Ernie Rooney Age: [age] year old Sex: male Patient's Previous Admission Date at [facility]: 11/16/2019 Current diagnosis and co-morbidities: osteomyelitis Readmission Questions: Was patient discharged from any acute care hospital within the last 30 days: No Social Functional Assessment: Primary language spoken/preferred: Japanese Mental Status: Alert & Oriented to Person,Place & Time Information given by: Self Patient's support system: Parent Name and number of support system: Rose Desouza, mother [phone] Primary Tankerman: Self MPOA: No Living Arrangement: Home Address of living arrangement : [address] [place] [id number] Persons living in home: Self;Other Names & numbers of persons living in home: Pt and roommate Barriers to returning home: None Baseline functional status- ambulation: Requires minimal to moderate assistance Functional status-baseline personal care: Requires minimal to moderate assistance Baseline functional status- driving: Dependent Baseline functional status- grocery shopping: Requires minimal to moderate assistance Functional status-baseline housekeeping: Requires minimal to moderate assistance Functional status-baseline meal prep: Requires minimal to moderate assistance Current functional status same as prior: Yes Do you have a PCP?: Yes Name of PCP: Dr Elam Home Health Care Agency: Yes Name of Home Health Agency: [address] [address] () [phone] () [phone] Previous or current Home Health Care Agency: Current Provider Services: No DME Company: No Equipment: Wheelchair: Manual;Shower Chair;Bedside Commode;Walker Hemodialysis: No Community resources utilized: None Funding Resources: Medicare Replacement Medicare Replacement name and information: [employer] Prescription coverage plan: Medicare Part D Anticipated services prior to disharge: Continue Medical Eval Expected mode of discharge transportation: Same as support system Additional Recommendations for DC: Medical clearance Additional info required for discharge planning: Pending medical evaluation Recommended discharge plan: Home;Update/Resume orders SFA Complete: Social Functional Assessment complete: Yes Alcohol Use Screening (AUDIT-C) How often do you have a drink containing alcohol?: Never SCORE: 0 Did patient elect to have resources provided: No Role of Care Management explained. Any issues or concerns with obtaining/affording your medications at home: no. 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 Review of Systems Objective Physical Exam Assessment/Plan Home, will resume home health services FRANCISCO [employer]ke[employer] Troubleshooter - Care Management [facility] [phone] [email or web address] documented in this encounter H&P Notes Memo Cheatham MD - 03/17/2020 8:01 PM CDT General Surgery History and Physical 03/17/2020 Reason for admission/Chief Complaint: Osteomyelitis of L calcaneus and non healing foot ulcer with e.coli bacteremia, here for BKA tomorrow HPI: 59 M with PMHx of HTN, DM, HLD, stroke with residual left sided weakness s/p pacemaker, CAD s/p CABG 2002 and multiple PCI most recently this year, and paroxysmal a fib. Non compliant with medications, unable to pay for them. Initially presented to [place] ED when an old foot ulcer present for 9 months opened up and oozed blood tinged fluid. Found to have osteomyelitis in L foot in November 2019. PICC was placed at the time and admitted to [facility] for IV abx tx but left AMA. Transferred to [place] for BKA tomorrow with Dr. Esquivel due to extensive cardiac hx and need for quality lab assoc availabilty. Past Medical History: Past Medical History: Diagnosis Date Arthritis BPH (benign prostatic hyperplasia) CAD (coronary artery disease) CVA (cerebral vascular accident) DM (diabetes mellitus) Fibromyalgia HLD (hyperlipidemia) HTN (hypertension) Hx of CABG 2002 Kidney stones Major depressive disorder Past Surgical History: Past Surgical History: Procedure Laterality Date BACK SURGERY 1997 for impinged nerve & herniated disk CHOLECYSTECTOMY 2003 CORONARY ARTERY BYPASS GRAFT [address] [facility]; for bradycardia CO CSI ANY OTHER THAN PCI 2 YR 2018 CO REMOVAL OF KIDNEY STONE 2009 Family History: Non-contributory for this encounter. Family History Problem Relation Age of Onset [place] (myocardial infarction) Father 65 Diabetes Maternal Grandmother [place] (myocardial infarction) Maternal Grandfather Stroke Maternal Grandfather Social History: Social History Socioeconomic History Marital status: Spouse name: Not on file Number of children: 0 Years of education: Not on file Highest education level: Not on file Occupational History Occupation: disabled Social Needs Financial resource strain: Somewhat hard Food insecurity Worry: Sometimes true Inability: Sometimes true Transportation needs Medical: Yes Non-medical: Yes Tobacco Use Smoking status: Former Smoker Types: Cigarettes Quit date: 2016 Years since quittin.8 Smokeless tobacco: Never Used Tobacco comment: quit [...] file Gets together: Not on file Attends [employer] service: Not on file Active member of [...] file Social History Narrative Not on file Home Medications: Current Facility-Administered Medications Medication Dose Route Frequency Last Rate Last Dose acetaminophen (TYLENOL) tablet 650 mg 650 mg Oral Q6HPRN aspirin chewable tablet 81 mg 81 mg Oral DAILY Stopped at 03/17/20 0900 atorvastatin (LIPITOR) tablet 40 mg 40 mg Oral QHS 40 mg at 03/16/20 2110 heparin (1,000 unit/mL, 10 mL vial) 3,000 Units Slow IV Push FOR REBOLUSING HYDROcodone-acetaminophen (NORCO) 10-325 mg tablet 1 tablet 1 tablet Oral Q6HPRN 1 tablet at 03/17/20 1031 insulin NPH (HUMULIN N) injection 5 Units 5 Units Subcutaneous QAM+HS 5 Units at 03/17/20 0828 lactobacillus acidophilus (ACIDOPHILLUS) 25 million cell -100 mg captab 1 tablet 1 tablet Oral TID 1 tablet at 03/17/20 1314 levothyroxine (SYNTHROID) tablet 50 mcg 50 mcg Oral QAM-0600 50 mcg at 03/17/20 0516 lidocaine 1% (PF) (XYLOCAINE) injection 5 mL 5 mL Subcutaneous PRN meropenem (MERREM) 500 mg in NaCl 0.9% (NS) 100 mL MINI-BAG 500 mg IV Piggyback Q8H ABX 500 mg at 03/17/20 1707 morpHINE injection 2 mg 2 mg Slow IV Push Q4HPRN 2 mg at 03/17/20 1707 NaCl 0.9% (NS) 1000 mL + KCL 20 mEq IV Infusion CONTINUOUS 150 mL/hr at 03/17/20 0024 NaCl 0.9% (NS) injection 10 mL 10 mL Slow IV Push PRN ondansetron (ZOFRAN (PF)) injection 4 mg 4 mg Slow IV Push Q6HPRN 4 mg at 03/17/20 0559 pantoprazole (PROTONIX) EC tablet 20 mg 20 mg Oral DAILY Stopped at 03/17/20 0900 Sliding Scale Insulin-Regular + Fsbg Testing Subcutaneous Q4H 2 Units at 03/17/20 1708 vancomycin 1250 mg in NS 250 mL RTU IV Piggyback 1,250 mg 15 mg/kg IV Piggyback Q24H ABX 1,250 mg at 03/17/20 0402 venlafaxine (EFFEXOR) tablet 75 mg 75 mg Oral BID 75 mg at 03/17/20 0830 Review of Systems: General/Constitutional: No change in weight, general state of health Skin/Breast: No rash HEENT: No headaches, changes in vision or hearing CV: No chest pain, palpitations, syncope, claudication Respiratory: No cough, wheezing, shortness of breath GI: No changes in appetite, abdominal pain, distention : No urinary urgency, frequency Musculoskeletal: No muscle pain, swelling Neurologic: No weakness, sensory changes acutely Vitals: BP 114/68 | Pulse 90 | Temp 36.7 C (98 F) (Oral) | Resp 18 | Ht 1.702 m (5' 7") | Wt 79.4 kg (175 lb) | SpO2 100% | BMI 27.41 kg/m Physical Exam: Constitutional: No acute distress Eyes: Symmetric, pupils equal, round, extraocular movements grossly intact Cardiovascular: RRR Respiratory: partially labored breathing GI: Soft, nontender, nondistended Rectal: Deferred Skin: No jaundice, rashes, lesions Musculoskeletal: b/l decreased sensation, b/l 2+ pulses distally, pain L leg, L calcaneous wound <1 cm Neurologic: cranial nerves II-XII grossly intact Psychiatric: appropriate mood and affect, no deficits of insight or judgment Labs: Labs: CBC BMP PT/INR WBC (10*3/L) Date Value 03/17/2020 23.65 (H) NA (mmol/L) Date Value 03/17/2020 134 (L) No results found for: PT RBC (10*6/L) Date Value 03/17/2020 2.86 (L) K (mmol/L) Date Value 03/17/2020 3.9 INR (no units) Date Value 03/16/2020 1.6 PLT (10*3/L) Date Value 03/17/2020 334 (H) CALCIUM (mg/dL) Date Value 03/17/2020 7.6 (L) HGB (g/dL) Date Value 03/17/2020 8.0 (L) CL (mmol/L) Date Value 03/17/2020 109 (H) aPTT HCT (%) Date Value 03/17/2020 24.1 (L) BUN (mg/dL) Date Value 03/17/2020 32 (H) APTT Patient (Seconds) Date Value 03/17/2020 67 (H) CREATININE (mg/dL) Date Value 03/17/2020 1.16 Assessment and Plan: 59 M with extensive cardiac hx who presents as a transfer from [facility] for L calcaneous ulcer and osteomyelitis with E. Coli bacteremia. --admit to Gen Surg B -zosyn IV --NPOpm, mIVF --consent obtained, risks discussed, patient amenable --case already posted Memo Cheatham MD, MPH Urology PGY-1 Pager: [phone] Associated attestation - Tato Esquivel MD - 03/18/2020 4:33 PM CDTI have examined Mr Rooney and agree with the note by Dr Cheatham. Kandis Garcia MD - 03/16/2020 3:05 AM CDT MEDICINE H&P Date of Service: 03/16/2020 CHIEF COMPLAINT: Left foot nonhealing wound History of Present Illness 59 y/o male pmh of medication noncompliance (sec to financial), s/p pacemaker (hx of bradycardia, [facility] chronic nonhealing left foot ulcer/osteo, dyslipidoses, htn, depression,bph, renal stone, chronic abdominal pain (thought possible sec to abdominal angia)CVA (with residual left sided weakness), IDDM (glipized prior was on NPH 16 in am and 14 pm), HTN, cad w/ h x CABG 2002s/p prior multiple pci most recent PCI 06/2019 (on plavix), prox a fib (eliqus), PAD,right groiniatrogenic AVF, Chronic diastolic HF, H/o L subclavian steal syndrome (per [place] records), fibromyalgia who presents due to non-healing left foot ulcer. Patient states x 8 months ago he had stepped on thumb-tack, in which since then he had problems withleft foot ulcer/infection with prior osteo (was tx last 12/08 for osteo via picc line to LTAC but patient had left ama from the LTAC). He states he ulcer had healed over then few days ago he noted that it re-open up and was drainage some blood tinged fluid with odor, he denied any fever, felt chills. He has chronic pain to the left foot states is the same. Of note: patient has not been taking any of his meds x few months, including his cardiac meds (plavix, metoprolol, eliqus 5 bid, lipitor, lasix 40 bid, lisinopril) or diabetic (glipizide, prior was NPH), as he states he was unable to afford. 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 He denied any N/V. States has had diarrhea x few days, watery no blood/mucus/pus. Denied any recent antibiotic use. Has abdominal pain which has been chronic, was admitted for same 1 month ago in whichwas seen by GI thought sec to abdominal angina need outpatient f/u. He denied any chest pain, cough, wheezing, states has had some sob, denied any pnd/orthpnea/leg swelling. PAST MEDICAL HISTORY Past Medical History: Diagnosis Date Arthritis BPH (benign prostatic hyperplasia) CAD (coronary artery disease) CVA (cerebral vascular accident) DM (diabetes mellitus) Fibromyalgia HLD (hyperlipidemia) HTN (hypertension) Hx of CABG 2003 Kidney stones Major depressive disorder Past Surgical History: Procedure Laterality Date BACK SURGERY 1997 for impinged nerve & herniated disk CHOLECYSTECTOMY 2003 CORONARY ARTERY BYPASS GRAFT [address] [facility]; for bradycardia CO CSI ANY OTHER THAN PCI 2 YR 2018 CO REMOVAL OF KIDNEY STONE 2009 Family History Problem Relation Age of Onset [place] (myocardial infarction) Father 65 Diabetes Maternal Grandmother [place] (myocardial infarction) Maternal Grandfather Stroke Maternal Grandfather ALLERGIES No Known Allergies MEDICATIONS No current facility-administered medications on file prior to encounter. Current Outpatient Medications on File Prior to Encounter Medication Sig Dispense Refill apixaban 5 mg tablet Take 1 tablet by mouth 2 (two) times daily. Indications: atrial fibrillation 60 tablet 2 atorvastatin 40 mg tablet Take 1 tablet by mouth at bedtime. 30 tablet 0 clopidogreL 75 mg tablet Take 1 tablet by mouth daily. 30 tablet 2 furosemide 40 mg tablet Take 1 tablet by mouth every morning and evening. 60 tablet 0 glipiZIDE 5 mg tablet Take 1 tablet by mouth 2 (two) times daily before breakfast and dinner. 60tablet 0 KCL 20 mEq tablet Take 1 tablet by mouth daily. 30 tablet 1 levothyroxine 50 mcg tablet Take 1 tablet by mouth every morning. 30 tablet 0 lisinopriL 2.5 mg tablet Take 1 tablet by mouth daily. 30 tablet 0 metoprolol succinate XL 25 mg 24 hr tablet Take 1 tablet by mouth 2 (two) times daily. 60 tablet1 nitroglycerin 0.[address] 1 tablet under the tongue every 5 (five) minutes as needed for Chest pain. 1 Bottle 2 pantoprazole 20 mg EC tablet Take 1 tablet by mouth daily. 30 tablet 1 tamsulosin 0.4 mg 24 hr capsule Take 1 capsule by mouth daily. 30 capsule 0 venlafaxine 75 mg tablet Take 1 tablet by mouth 2 (two) times daily. 30 tablet 0 SOCIAL HISTORY Social History Socioeconomic History Marital [...] Types: Cigarettes Quit date: 2016 Years since quittin.8 Smokeless tobacco: Never Used Tobacco comment: quit [...] file Gets together: Not on file Attends [employer] service: Not on file Active member of [...] Narrative Not on file REVIEW OF SYSTEMS 10 point ros was asked which was neg except mentioned above PHYSICAL EXAMINATION Vitals: 03/15/20 2350 03/16/20 0124 BP: 110/72 117/69 Pulse: 90 92 Resp: 26 28 Temp: 36.3 C (97.3 F) TempSrc: Oral SpO2: 100% 100% Weight: 79.4 kg (175 lb) Height: 1.702 m (5' 7") General: alert and oriented x 3 (person, place and date/time); Mild-mod Distress due to pain HEENT: normocephalic atraumatic Neck: full range of motion Lungs: clear to auscultation bilaterally Cardio: regular rate and rhythm Abdomen: soft; + generalized tender; non-distended; normoactive bowel sounds : not examined Rectal: not examined Extremities: no clubbing, cyanosis. Left foot swelling with plantar ulcer at medial heal - nondraining, with posterior heel purplish discoloration. Warm. Distal pulse b/l foot intact Skin: no rashes Neuro: no focal deficits LABS - reviewed pertinent labs as below: CBC WBC (10*3/L) Date Value 03/16/2020 19.31 (H) PLT (10*3/L) Date Value 03/16/2020 339 (H) HGB (g/dL) Date Value 03/16/2020 9.9 (L) HCT (%) Date Value 03/16/2020 28.5 (L) BMP NA (mmol/L) Date Value 03/16/2020 134 (L) K (mmol/L) Date Value 03/16/2020 4.1 CALCIUM (mg/dL) Date Value 03/16/2020 8.6 CL (mmol/L) Date Value 03/16/2020 100 BUN (mg/dL) Date Value 03/16/2020 41 (H) CREATININE (mg/dL) Date Value 03/16/2020 1.74 (H) GLUCOSE (mg/dL) Date Value 03/16/2020 382 (H) CO2 TOTAL (mmol/L) Date Value 03/16/2020 16 (L) IMAGING - reviewed, pertinent results as below: Xray: XR FOOT <3 VW LEFT HISTORY: 59 years-old Male; osteo / heel COMPARISON: Left foot radiographs 02/04/2020 FINDINGS: Radiographs of the left foot demonstrate soft tissue swelling and subcutaneous gas in the plantar aspect of the hindfoot with a skin defect identified in the heel. Focal osteopenia and bone erosions are noted along the medial process of the plantar calcaneus. There is no acute fracture or dislocation. Prominent talonavicular dorsal osteophytosis and subchondral cystic changes are noted. Diabetes type vascular calcifications are noted. IMPRESSION Skin defect and subcutaneous gas in the heel with osteomyelitis of the calcaneal medial process. Moderate midfoot osteoarthrosis. CHART REVIEW: pertinent information as below: ASSESSMENT/PLAN Ernie Rooney is a 59 year old male with PMH as listed above, admitted to the hospital with: Active Problems: Left foot nonhealing ulcer w/ Osteomyelitis - xray foot noted possible osteo + ulcer w/ subcut gas Will get CT scan left foot for further eval (noncont due to kory) Will start IV vanco q 24 /duane q8 + clinda (for possible gas gangrene) IV fluids, as b/p low 100's with elevated lactic acid Will consult podiatry -Dr. Mancera (have informed to see this early AM tenzin) Consult ID -Dr. Benito (have informed available omorrow) Will keep NPO as likely need surgical intervention Will consult cardio (have informed) for pre-op eval given extensive cardiac hx/PM in light patient needs any extensive surgical intervention. Will continue hold plavix/eliqus in light of procedure, will get ekg (paced rhythm)/cxr/trop (negative)/ntprob EVIE/arterial duplex (had arterial duplex 11/18/19 w/ no sign stenosis) ESR wound/blood cultures, follow-up lactic acid trend Keep Low threshold to ICU if any sign of decompensation -from sepsis, also cautious with narcotic ascan drop his b/p. Metabolic acidosis - sec to lactic acidosis/kory Iv fluid and Monitor trend of lactic acid kory - continue hold patient lisinopril US retro Avoid nephrotoxic agents. Renally dose meds Consult nephro Cad - hx of cabg and multiple prior pci with Last pci 07/11. S/p PM Has been non-compliant with meds including plavix Will hold toprol xl and lisinopril given low normal b/p Hold plavix for now until surgical eval Will add troponin. Had recent TTE 02/08 Consult cardio Chronic diastolic CHF - will hold lasix. Clinically no sign of volume overload. Cautious as on iv fluids. prox a fib - will hold Eliquis and BB Dm w/ hyperglycemia -sec to noncompliance Hold glipizide. Start NPH 5 units bid (as NPO, in the past was on 16 units am and 14 units pm) with RISS q6 Noted acidosis w/midly elevated AG monitor with insulin therapy. hga1c Metabolic acidosis/lactic acidosis - likey multifactorial - infection/tissue necrosis/hperglyemia/kory IV fluid and monitor trend Diarrhea - will check stool studies/c diff Anemia -check iron studies Hg stable hypothyroidism - restart synthroid 50 Check tsh cva - hold plavix until surgical eval, will need to restart after Resume lipitor dyslipid -restart lipitor Check lipid profile Chronic abdominal pain - possible abdominal angina Will need outpatient f/u with vascular Prophylaxis: DVT- heparin (will need to restart OAC after surgical eval) Advanced Care Planning ( Z71.89): Discussed with patient I spent 16 minutes discussing the advance care plan Level of comfort: tbd surrgote decision maker: mother Code Status: Full Tobacco User Z 71.6 No Non Tobacco User Z78.9 No Measure 130 Current Medications Current Facility-Administered Medications: acetaminophen (TYLENOL) tablet 650 mg, 650 mg, Oral, Q6HPRN, Kandis Hough MD atorvastatin (LIPITOR) tablet 40 mg, 40 mg, Oral, QHS, Kandis Hough MD clindamycin in 5 % dextrose (CLEOCIN) 900 mg/50 mL IV piggyback RTU 900 mg, 900 mg, IV Piggyback, Q8H ABX, Kandis Hough MD, 900 mg at 03/16/20 0404 FENTanyl PF (SUBLIMAZE (PF)) injection 25 mcg, 25 mcg, Slow IV Push, Q4HPRN, Kandis Hough MD, 25 mcg at 03/16/20 0400 heparin (porcine) injection 5,000 Units, 5,000 Units, Subcutaneous, Q12H, Kandis Hough MD insulin NPH (HUMULIN N) injection 5 Units, 5 Units, Subcutaneous, QAM+HS, Kandis Hough MD lactobacillus acidophilus (ACIDOPHILLUS) 25 million cell -100 mg captab 1 tablet, 1 tablet, Oral, TID, Kandis Hough MD levothyroxine (SYNTHROID) tablet 50 mcg, 50 mcg, Oral, QAM-0600, Kandis Hough MD meropenem (MERREM) 500 mg in NaCl 0.9% (NS) 100 mL MINI-BAG, 500 mg, IV Piggyback, Q8H ABX, Kandis Hough MD NaCl 0.9% (NS) IV infusion 1,000 mL, 1,000 mL, IV Infusion, CONTINUOUS, Kandis Hough MD, Last Rate: 100 mL/hr at 03/16/20 0404, 1,000 mL at 03/16/20 0404 ondansetron (ZOFRAN (PF)) injection 4 mg, 4 mg, Slow IV Push, Q6HPRN, Kandis Hough MD pantoprazole (PROTONIX) EC tablet 20 mg, 20 mg, Oral, DAILY, Kandis Hough MD Sliding Scale Insulin-Regular + Fsbg Testing, , Subcutaneous, Q6H, Kandis Hough MD tamsulosin (FLOMAX) capsule 0.4 mg, 0.4 mg, Oral, DAILY, Kandis Hough MD traMADoL (ULTRAM) tablet 50 mg, 50 mg, Oral, Q8HPRN, Kandis Hough MD vancomycin 1250 mg in NS 250 mL RTU IV Piggyback 1,250 mg, 15 mg/kg, IV Piggyback, Q24H ABX, Kandis Hough MD, 1,250 mg at 03/16/20 0404 venlafaxine (EFFEXOR) tablet 75 mg, 75 mg, Oral, BID, Kandis Hough MD Measure 317 BP Readings from Last 1 Encounters: 03/16/20 99/[address] [facility] [place], [place] was reviewed The above diagnosis and plan was discussed with the patient and was agreed upon Kandis Hough M.D. Internal Medicine Employee ID #: [id number] documented in this encounter Procedure Notes Ced Pang RN - 03/16/2020 12:30 PM [facility] A bedside timeout was conducted before procedure with Ricardo Dejesus RN. An ultrasound guided, 18 ga., 10 cm. MIDLINE was then placed in the left brachial vein, in one attempt(s). Local anesthetic not used. Labs not obtained. REF#: [id number] Lot #: [id number] Exp: 1 documented in this encounter Consult Notes Michelle Toscano, PT - 03/19/2020 3:31 PM CDTAssociated Order(s): CONSULT ADULT PHYSICAL THERAPY Patient agreeable to working with physical therapy. Patient met Supine. PHYSICAL THERAPY EVALUATION Consult received, chart reviewed and evaluation complete this date. Patient is referred to PT for evaluation and treatment. Patient is a 59 year old male who presents to hospital for osteomyelitis, currently s/p left below knee amputation 03/18/20. Discharge Recommendations: Therapy Needs and Potential: Patient would benefit from continued physical therapy services to address: decline in bed mobility decline in transfers decline in gait and/or balance decreased strength decreased endurance Patient demonstrates good potential to improve and meet therapy goals with further physical therapy services. Patient appears motivated to improve their functional mobility and return to their previous levelof function. Patient demonstrates ability to tolerate atleast 30-60 minutes of physical therapy with active participation. Challenges to Home Transition: increased risk of falls decreased caregiver availability environmental barriers Equipment recommendations: wheelchair with extended legrest Current Functional Status and/or Treatment:Functional mobility training, Transfer training, Patient/Family/Caregiver education and Therapeutic exercise Bed Mobility: Rolling: SBA/Setup Bridging: SBA/Setup Supine to sit: Minimal assist Scooting to edge of bed: SBA/Setup Sit to supine: CGA. Demo moderated effort to complete task. Maintained static sitting at edge of bed with CGA/SBA Transfers: Sit to stand: Minimal assist using Rolling Walker Stand to sit: Minimal assist using Rolling Walker Static/dynamic standing balance: fair- Verbal cueing provided for correct hand placement and correct use of AD, Patient fluctuates from min to mod assist to maintain static standing due to c/o dizziness BP: 126/80 mmHg, MAP 90, SpO2 99% on room air Ambulation: NT, deferred due to decrease activity tolerance. Therapeutic exercise: patient educated in Fall prevention, General strengthening, Joint protection, Positioning, Safetyawareness and WB restrictions., instructed patient in the following: quad sets, glut sets, hip abduction/adduction, straight leg raises, right AP, patient/caregiver instructed to perform HEP 2-3 times per day, 10 repetitions., patient/caregiver verbalizes understanding of instructions. After session, patient Semi reclined in bed, SCD sleeves on and machine turned on, Left LE with splint in place. Call button provided, RN notified of patient status and response to treatment. PLAN OF CARE: At least 5 times per week, once or twice a day (while in hospital) per patient's tolerance and medical needs. See below for complete details. Admit Date: 03/15/2020 Hospital Diagnosis:osteomyelitis PT Diagnosis: Difficulty walking, Weakness and Pain Weight Bearing Precaution: NWB Left LE General Precautions: PPE used:Gloves, Gown and Surgical mask, General, Fall, Contact isolation, Bracing/Cast present or required: Left LE splint PMH: Past Medical History: Diagnosis Date Arthritis BPH (benign prostatic hyperplasia) CAD (coronary artery disease) CVA (cerebral vascular accident) DM (diabetes mellitus) Fibromyalgia HLD (hyperlipidemia) HTN (hypertension) Hx of CABG 2002 Kidney stones Major depressive disorder PSH: Past Surgical History: Procedure Laterality Date BACK SURGERY 1997 for impinged nerve & herniated disk BELOW THE KNEE AMPUTATION Left 03/18/2020 Surgeon: Tato Esquivel MD; Location: [facility] CHOLECYSTECTOMY 2003 CORONARY ARTERY BYPASS GRAFT [address] [facility]; for bradycardia CO CSI ANY OTHER THAN PCI 2 YR 2018 CO REMOVAL OF KIDNEY STONE 2008 Prior Living Situation: Lives with roomate, Apartment with 14 steps at entrance DME: Rolling Walker, Four wheeled walker with seat Prior level of Mobility: community ambulation modified independent with use of rollator Subjective: Patient reports he has been preparing mentally for activity modifications s/p amputation. Patient/Family Goals: Increase independence with functional mobility. Patient/Family verbalizes understanding of condition: Yes PAIN: -Pain Description: aching and variable -Pain Location: Left residual limb -Pain rating before treatment: 4, After treatment: 6 -Pain Management: Nursing Notified and Repositioning Provided, received pain medication prior to treatment. COMMUNICATION Primary Language: Japanese Able to Verbalize needs: Yes Vision:good; no issues reported Hearing:good; no issues reported ORIENTATION/COGNITION: Oriented to: person, place, date/time and situation Awake: Yes Alert: Yes Dizzy: Yes Follows Commands: Yes 1-Step Yes Multi-Step Yes Inconsistent: No NEUROLOGICAL Light Touch: within functional limits bilateral LE, distal residual limb NT currently with april wrap in place Tone: WNL BALANCE: Sitting: Static: Fair+ Dynamic: Fair Standing: Static: Poor+ Dynamic: NT RANGE OF MOTION: within functional limits bilateral LE, STRENGTH: 4-/5 (G-), bilateral LE gross strength ENDURANCE: Fair+, Room air SKIN INTEGRITY: not intact, defer to Nursing PROBLEM LIST: Decline in bed mobility, Decline in gait, Decline in transfers, Decreased strength, Decreased endurance, Decreased balance, Weight bearing restrictions and Pain ASSESSMENT: Patient is a 59 year old male seen secondary to the above listed diagnosis. Patient would benefit from continued PT to address the above listed deficits to maximize independence and safety with functional mobility. Rehabilitation Potential: good Goals: The following goals are to maximize independence and safety with functional mobility to eventually return to prior living situation and prior functional status. Upon discharge, patient and/or family will demonstrate the followin. Supine-sit: Modified independent 2. Stand pivot transfer or Squat pivot transfer: Modified independent 3. SBA/Setup with ambulation, Feet: 25 using least assistive device. 4 Modified independent with wheelchair propulsion and management of brakes. 5. Demonstrate or verbalize understanding of home exercise program in order to continue with their rehab on their own. 6. Ascend/descend 14 steps with SBA. Treatment Plan: Gait training, Gait training on stairs, Therapeutic exercise, Transfer training, Balance training, Bed mobility training, Equipment needs assessment, Safety education, patient/caregivereducation, Neuromuscular Re- Education and Functional Motor Training PATIENT EDUCATION: Patient provided with preferred teaching of verbal information and demonstration on role of PT, plan of care, treatment benefits, precautions, fall prevention and safety. Shows readiness to learn. Verbal instruction teaching provided. Individual and verbalizes understanding of teach ing provided and needs reinforcement of teaching. Michelle Toscano PT, DPT Pager Number: [phone] Total time treatments: 23 min Total treatment time: 34 min Colette Alfaro OT - 03/19/2020 2:20 PM CDTAssociated Order(s): CONSULT ADULT OCCUPATIONAL THERAPY ORTHOTIC EVALUATION Consult received via [employer], EMR reviewed and evaluation completed 03/19/2020. Patient agreeable to participate in occupational therapy. Please refer to the evaluation below for details. Discharge Recommendations: Therapy Needs and Potential:- Patient would benefit from continued skilled occupational therapy services to address: Decline in basic activities of daily living, Decline in instrumental activities of daily living, Decreased strength and Decreased endurance - Patient demonstrates good potential to improve and meet therapy goals with further skilled occupational therapy services. - Patient appears motivated to improve their B/IADLs and return to their previous level of function. - Patient demonstrates ability to tolerate at least 30-60 minutes of active participation in occupational therapy. - Patient able to follow commands: 1-step Yes, Multi-step Yes, Inconsistencies No Challenges to Home Transition:- Requires physical assistance for BADLS - Requires physical assistance for IADLS - Limited caregiver availability - Increased risk of falls - Environmental barriers. Patient unable to tolerate out of bed at this time due to dizziness and decreased alertness with position changes. Patient also has 14 steps to enter his home. Equipment Recommendations:None PLAN OF CARE: At least 5-6 x/week . Precautions: Weight bearing status: NA General: PPE Utilized: Gloves, Gown and Surgical mask, Contact and Fall Bracing: custom L posterior knee conformer Subjective: Patient states that he has a history of back pain and surgery and that is why he has so much DME. Current Occupational Performance and/or Treatment: Feeding: Independent Grooming: SBA/Setup while in bed UB Dressing: SBA/Setup LB Dressing: Minimal assist Toilet Transfer: Unable to tolerate out of bed Toileting Hygiene: SBA/Setup Functional Mobility: supine to sit-mod assist, sit to stand-mod assist to RW, had to return to sitting due to decreased alertness and dizziness. Vitals WNL by the time patient was supine. Patient left semireclining in bed with call valencia in reach. L LE elevated and orthotic in place. Objective: 59 year old male Admit date: 03/15/2020 Date of injury: 03/15/2020 Admit Diagnosis: osteomyelitis OT Diagnosis: Impaired BADL independence, Impaired IADL independence, Weakness, Activity intolerance, Decreased endurance, Impaired self-care mobility and Pain PMH: Past Medical History: Diagnosis Date Arthritis BPH (benign prostatic hyperplasia) CAD (coronary artery disease) CVA (cerebral vascular accident) DM (diabetes mellitus) Fibromyalgia HLD (hyperlipidemia) HTN (hypertension) Hx of CABG 2002 Kidney stones Major depressive disorder PSH: Past Surgical History: Procedure Laterality Date BACK SURGERY 1997 for impinged nerve & herniated disk BELOW THE KNEE AMPUTATION Left 03/18/2020 Surgeon: Tato Esquivel MD; [facility] CHOLECYSTECTOMY 2003 CORONARY ARTERY BYPASS GRAFT [address] [facility]; for bradycardia CO CSI ANY OTHER THAN PCI 2 YR 2018 CO REMOVAL OF KIDNEY STONE 2009 Function prior to admission: Household ambulation, Community ambulation, Modified independent with BADLs and Modified independent with IADLs REASON FOR REFERRAL: Custom Orthosis Static Posterior Knee Conformer for left LE. Orthosis to Increase range of motion, Decrease pain, Achieve and maintain functional resting position to extremity/joint, Prevent contracture/deformity, Immobilize/rest/protect identified joint. PROBLEM LIST: Decreased indep with ADL, Pain with activity/constant and new BKA Hand dominance: right PAIN: Before assessment: 11/28 After assessment: 11/28 Location: L LE Pain Management: Repositioning Provided and Fabrication of orthosis CURRENT OBSERVATIONS/MEASUREMENTS: Patient presents with: Surgical incision wrapped with april wrap TREATMENT PROVIDED: Written/verbal orthotic training and instructions provided re: wear, don/doff, care, and precautions: Yes Orthotic training/instructions/precautions posted bedside: No Orthotic wear schedule: Night and rest periods Written/verbal instruction provided on additional home programs: Edema control, General strengthening, positioning and Role of OT Assessment: Orthotic appears well fitting, however, will benefit from close monitoring of skin integrity while in house to prevent breakdown. REHAB POTENTIONAL/PROGNOSIS: Patient shows good potential to continue follow through with stated goal(s). Yes PATIENT/FAMILY GOALS: to return home. TREATMENT/INTERVENTION PLAN: Functional motor treatment, Patient/Caregivier Education, Equipment recommendations, Daily living activities, Therapeutic exercises and Neuromuscular Re-Education GOAL(S): By discharge, with instructed use of the orthotic, the patient is able to increase functionof left LE for self-care via the following goals: 1 Protect identified joint while performing daily activities. 2 Achieve and maintain a functional resting position of extremity/joint. GOAL(S): By discharge, patient will increase independence in daily living skills as follows: 3 Patient will perform toilet transfer with modified independence. 4 Patient will perform LB dressing with modified independence. 5 Patient will complete grooming tasks with modified independence while standing at the sink. 6 Patient will increase endurance for functional activity as evidenced by ability to sustain 20 minutes of active participation. 7 Patient/caregiver will verbalize/demonstrate understanding/proficiency in the following home programs: orthotic training, ADL training, Fall prevention and General strengthening PATIENT-FAMILY TEACHING Patient provided with preferred teaching of verbal information on Orthotic training and Role of OT.Shows readiness to learn. Verbal instruction teaching provided. Individual is able to read and needsreinforcement of teaching. Wendy MedinaOTR [phone] Total Timed Treatment Codes: 45 Min Total Treatment Time: 65min Patient Complexity Level High - An occupational therapy evaluation of high complexity was completed using the above tests and measures. The following information was obtained: An occupational profile and medical and therapy history, including review of medical and/or therapy records and extensive oleksandr tional review of physical, cognitive, or psychosocial history related to current functional performance, Various standardized and non-standardized assessments were used to identify at least 5 or more performance deficits related to physical, cognitive, or psychosocial skills that result in activity limitations and/or participation restrictions and Clinical decision-making is of high analytic complexity, which includes an analysis of the patient profile, analysis of data from comprehensive assessment(s), and consideration of multiple treatment options. Patient present with comorbidities that affect occupational performance. Significant modification of tasks or assistance (e.g., physical or verbal) with assessment(s) is necessary to enable patient to complete evaluation component. Samara Terrell RN - 03/19/2020 9:23 AM CDTAssociated Order(s): CONSULT FILM COLOR TESTER-ADULTReason for consult - please give recommendation or opinion on: Ernie Rooney is a 59 year old male with several comorbidities undergoing Left BKA requiring rehab placement postoperatively. If patient does not have an established provider for this service, please contact the provider on-call. CM met with patient at the bedside to discuss discharge planning. Patient states that he would like to discharge to a alf facility at discharge as he does not have any support at home. CM provided patient with a list of in network alf facility options as well as [facility]'s preferred network list. Patient stated that he did not want any of them, as he has been to the options closest to his home and did not like them, and the other options are too far from his home. CM explained that there are transportation methods to get him back home after his alf stay, but patient still declined. CM left the list of facilities with patient to review and will update primary team. Samara Cason RN, MSN [employer] [email or web address]) [phone] Norman Blake MD - 03/19/2020 8:35 AM CDTAssociated Order(s): CONSULT INFECTIOUS DISEASE INFECTIOUS DISEASES CONSULT NOTE Date of Service: 03/19/2020 Consultation requested by: Dr. Esquivel Reason for Consultation: Management of antibiotics and calcaneal osteomyelitis, status post BK amputation. Chief Complaint: Left foot pain. History of Present Illness: 59 M with PMHx of HTN, DM, HLD, stroke with residual left sided weakness s/p pacemaker, CAD s/p CABG 2002 and multiple PCI most recently this year, and paroxysmal a fib. Non compliant with medications, unable to pay for them. Initially presented to [place] ED when an old foot ulcer present for 9 months opened up and oozed blood tinged fluid. Found to have osteomyelitis in L foot in November 2019. PICC was placed at the time and admitted to [facility] for IV abx tx but left AMA. Transferred to [place] for BKA with Dr. Esquivel due to extensive cardiac hx and need for quality lab assoc availabilty. ID is consulted and his blood cultures are positive for E. Coli, and to help with antibiotics. Past Medical History: Past Medical History: Diagnosis Date Arthritis BPH (benign prostatic hyperplasia) CAD (coronary artery disease) CVA (cerebral vascular accident) DM (diabetes mellitus) Fibromyalgia HLD (hyperlipidemia) HTN (hypertension) Hx of CABG 2002 Kidney stones Major depressive disorder No Known Allergies Medications: Current Facility-Administered Medications Medication Dose Route Frequency Last Rate Last Dose acetaminophen (TYLENOL) tablet 650 mg 650 mg Oral Q6HPRN aspirin chewable tablet 81 mg 81 mg Oral DAILY 81 mg at 03/19/20 0734 atorvastatin (LIPITOR) tablet 40 mg 40 mg Oral QHS 40 mg at 03/18/20 2119 heparin (1,000 unit/mL, 10 mL vial) 3,000 Units Slow IV Push FOR REBOLUSING HYDROcodone-acetaminophen (NORCO) 10-325 mg tablet 1 tablet 1 tablet Oral Q6HPRN 1 tablet at 03/17/20 1031 insulin NPH (HUMULIN N) injection 5 Units 5 Units Subcutaneous QAM+HS 2.5 Units at 03/19/20 0737 lactobacillus acidophilus (ACIDOPHILLUS) 25 million cell -100 mg captab 1 tablet 1 tablet Oral TID 1 tablet at 03/19/20 0735 levothyroxine (SYNTHROID) tablet 50 mcg 50 mcg Oral QAM-0600 50 mcg at 03/19/20 0552 lidocaine 1% (PF) (XYLOCAINE) injection 5 mL 5 mL Subcutaneous PRN meropenem (MERREM) 500 mg in NaCl 0.9% (NS) 100 mL MINI-BAG 500 mg IV Piggyback Q8H ABX 500 mg at 03/19/20 0734 morpHINE injection 2 mg 2 mg Slow IV Push Q4HPRN 2 mg at 03/19/20 0407 NaCl 0.9% (NS) 1000 mL + KCL 20 mEq IV Infusion CONTINUOUS 150 mL/hr at 03/19/20 0251 NaCl 0.9% (NS) injection 10 mL 10 mL Slow IV Push PRN ondansetron (ZOFRAN (PF)) injection 4 mg 4 mg Slow IV Push Q6HPRN 4 mg at 03/18/20 1608 pantoprazole (PROTONIX) EC tablet 20 mg 20 mg Oral DAILY 20 mg at 03/19/20 0735 Sliding Scale Insulin-Regular + Fsbg Testing Subcutaneous Q4H 2 Units at 03/19/20 0737 vancomycin 1250 mg in NS 250 mL RTU IV Piggyback 1,250 mg 15 mg/kg IV Piggyback Q24H ABX 1,250 mg at 03/19/20 0251 venlafaxine (EFFEXOR) tablet 75 mg 75 mg Oral BID 75 mg at 03/19/20 0735 Social History: Social History Socioeconomic History Marital status: Spouse name: Not on file Number of children: 0 Years of education: Not on file Highest education level: Not on file Occupational History Occupation: disabled Social Needs Financial resource strain: Somewhat hard Food insecurity Worry: Sometimes true Inability: Sometimes true Transportation needs Medical: Yes Non-medical: Yes Tobacco Use Smoking status: Former Smoker Types: Cigarettes Quit date: 2016 Years since quittin.8 Smokeless tobacco: Never Used Tobacco comment: quit [...] file Gets together: Not on file Attends baptist service: Not on file Active member of [...] file Social History Narrative Not on file Family History: Family History Problem Relation Age of Onset [place] (myocardial infarction) Father 65 Diabetes Maternal Grandmother [place] (myocardial infarction) Maternal Grandfather Stroke Maternal Grandfather Review of Systems: General: -fever, -chills Skin: -rash, -lesion HEENT: -headache, -change in hearing, -change in vision Neck: -pain, -difficulty swallowing Heme: -bleeding disorder Resp: -cough, -shortness of breath Cardio: -dyspnea on exertion, -chest pain GI: -abdpain, -nausea, -vomiting, -diarrhea : -dysuria, -hematuria Neuro: -numbness, -weakness JANELL: -myalgia, -arthralgia, +lt foot chronic wound. Physical Examination: Vitals: 03/18/20 2106 03/18/20 2334 03/19/20 0405 03/19/20 0718 BP: 126/78 127/75 127/73 116/73 BP Location: Right arm Right arm Right arm Right arm Patient Position: Supine Supine Supine Pulse: 79 78 73 73 Resp: 15 16 16 16 Temp: 36.5 C (97.7 F) 36.4 C (97.5 F) 36.4 C (97.5 F) 36.3 C (97.3 F) TempSrc: Oral Oral Oral Oral SpO2: 98% 99% 99% 99% Weight: Height: General: alert and oriented, no apparent distress Eyes: EOMI, anicteric sclerae ENT: oropharynx clear; moist mucous membranes Lungs: CTA Cardio: S1, S2 normal; no murmurs, rubs or gallops GI: abdomen soft; non-tender; non-distended; normoactive bowel sounds Extremities: no c edema Skin: warm and dry; no rash Neuro: no focal deficits Hem/lymph: no LAD Status post below-knee amputation of the left leg. Laboratory: WBC (10*3/L) Date Value 03/19/2020 13.05 (H) HGB (g/dL) Date Value 03/19/2020 8.2 (L) PLT (10*3/L) Date Value 03/19/2020 348 (H) CREATININE (mg/dL) Date Value 03/19/2020 0.73 GLUCOSE (mg/dL) Date Value 03/19/2020 216 (H) ALT(SGPT) (U/L) Date Value 02/13/2019 18 ALTv (U/L) Date Value 03/16/2020 61 (H) AST(SGOT) (U/L) Date Value 03/16/2020 63 (H) ALK PHOS (U/L) Date Value 03/16/2020 196 (H) Microbiology: Blood culture 03/19/2020 sent. Wound culture 03/16/2020: Swab from left foot wound, growing 3+ E. Coli, 1+ enterococcus faecalis, 1+ skin avel. 03/16/2020: Blood culture positive for E. Coli. Radiology: 03/15/2020: Left foot x-ray showing calcaneal osteomyelitis with subcutaneous gas and skin defect. 03/16/2020: CT of left foot reviewed. 03/16/2020:Chest x-ray not showing any acute cardiopulmonary process. 03/16/2020: Renal ultrasound is essentially normal, except for right interpolar cyst. Partially decompressed urinary bladder with circumferential thickening. Possible cystitis versus bladder outlet obstruction. Assessment: 59-year-old male with history of uncontrolled diabetes hypertension hyperlipidemia coronary artery disease, stroke presents to emergency room with worsening of the wound on his left ankle. Patient found to have osteomyelitis In the left calcaneum, underwent left leg below-knee amputation. Patient blood culture grew E. Coli on 03/18/2020 Infectious disease is consulted for recommendations regarding antibiotics. #Calcaneal osteomyelitis, status post below-knee amputation. #E. Coli bacteremia likely source left calcaneum. # uncontrolled diabetes mellitus #Hypertension, hyperlipidemia, coronary artery disease, stroke Recommendations: -Stop meropenem and vancomycin.(Completed 4 days of the same.) -Start Levaquin 750 mg by mouth daily As the E. Coli is susceptible to it. We will treat for a period of 7 days, for gram-negative bacteremia. Case was discussed with attending physician. Thank you for the consult. Norman Amado PGY4, ID Associated attestation - Quincy Schmidt MD - 03/19/2020 11:02 PM CDTI have seen and examined this patient on 03/19/20. I agree with Dr. Amado 's thorough assessment andplan. I was directly involved in the decision making process. Please see the fellow's note for further details.Curtis Aviles, - 03/16/2020 5:34 PM CDTAssociated Order(s): CONSULT NEPHROLOGY Nephrology Consult Admit Date: 03/15/2020 PCP: Fransisco Elam Referring Physician: Dr. Hough Reason for Referral: KORY/ CKD Admitting Dx: osteomyelitis CHIEF COMPLAINT: non-healing left foot ulcer. HISTORY OF PRESENT ILLNESS: Ernie Rooney is a 59 year old male that presented to the ER with a non-healing left foot ulcer. No NSAIDs. No urinary difficulties. DM X35 years. Hx BPH. 59 y/o male pmh of medication noncompliance (sec to financial), s/p pacemaker (hx of bradycardia, done at [facility]), chronic nonhealing left foot ulcer/osteo, dyslipidoses, htn, depression,bph, renal stone, chronic abdominal pain (thought possible sec to abdominal angia)CVA (with residual left sided weakness), IDDM (glipized prior was on NPH 16 in am and 14 pm), HTN, cad w/ h x CABG 2002s/p prior multiple pci most recent PCI 06/2019 (on plavix), prox a fib (eliqus), PAD,right groiniatrogenic AVF, Chronic diastolic HF, H/o L subclavian steal syndrome (per [place] records), fibromyalgia who presents due to non-healing left foot ulcer. ROS as stated above. All other ROS negative. Temp: [36.2 C (97.2 F)-36.6 C (97.9 F)] Pulse: [70-92] Resp: [14-28] BP: (85-117)/(54-74) MAP (mmHg): [65-86] POCT Blood Glucose (manual): [232 mg/dL] PE: Gen: NAD HEENT: NCAT. MMM. Neck: Supple. No LAD. Lungs: CTA CVS: RRR Abd: Epigastric tenderness Ext: No C/C. LE Edema none Left foot ulcer Skin: No rash Psych: AAO Neuro: Normal speech ASSESSMENT/PLAN Ernie Rooney is a 59 year old male with PMH as listed above, admitted to the hospital with: The primary encounter diagnosis was Left foot pain. Diagnoses of Osteomyelitis of left foot, unspecified type, Gas gangrene, Chest pain in adult, and KORY (acute kidney injury) were also pertinent to this visit. A/ KORY improving with IVF. Hyponatremia Hypokalemia Acidosis Hypocalcemia CKD III with proteinuria DM II with CKD & Polyneuropathy Anemia in chronic illness Iron deficiency Vitamin D3 Deficiency P/ Continue current POC and Medications other than changes listed below. Please see chart and orders for complete details. Continue IVF. Replete potassium. Continue abx. Wound care as ordered. No NSAIDs. AM labs. Daily weight. Thank you kindly for the consultation. Vitals: 03/16/20 1053 03/16/20 1200 03/16/20 1600 03/16/202000 BP: 114/74 101/60 106/65 104/68 Pulse: 70 76 74 Resp: 18 18 18 Temp: 36.3 C (97.3 F) 36.4 C (97.5 F) 36.3 C (97.4 F) TempSrc: Oral Oral Temporal Artery SpO2: 99% 99% 99% Weight: Height: LABS - reviewed in the chart: CBC BMP PT/INR WBC (10*3/L) Date Value 03/16/2020 19.31 (H) NA (mmol/L) Date Value 03/16/2020 134 (L) No results found for: PT RBC (10*6/L) Date Value 03/16/2020 3.51 (L) K (mmol/L) Date Value 03/16/2020 3.5 INR (no units) Date Value 03/16/2020 1.6 PLT (10*3/L) Date Value 03/16/2020 339 (H) CALCIUM (mg/dL) Date Value 03/16/2020 7.4 (L) HGB (g/dL) Date Value 03/16/2020 9.9 (L) CL (mmol/L) Date Value 03/16/2020 106 aPTT HCT (%) Date Value 03/16/2020 28.5 (L) BUN (mg/dL) Date Value 03/16/2020 37 (H) APTT Patient (Seconds) Date Value 03/16/2020 101 (HH) CREATININE (mg/dL) Date Value 03/16/2020 1.37 (H) IMAGING - reviewed in the chart: Hospital Encounter on 03/15/20 XR FOOT <3 VW LEFT Narrative XR FOOT <3 VW LEFT HISTORY: 59 years-old Male; osteo / heel COMPARISON: Left foot radiographs 02/04/2020 FINDINGS: Radiographs of the left foot demonstrate soft tissue swelling and subcutaneous gas in the plantar aspect of the hindfoot with a skin defect identified in the heel. Focal osteopenia and bone erosions are noted along the posterior aspect of the calcaneus. There is no acute fracture or dislocation. Prominent talonavicular dorsal osteophytosis and subchondral cystic changes are noted. Diabetes type vascular calcifications are noted. Impression Skin defect and subcutaneous gas in the heel with suspected osteomyelitis of the posterior calcaneus. Moderate midfoot osteoarthrosis. Preliminary Report Dictated by Resident: Sergio Thomas I, Lexi Palacio MD., have reviewed this study and agree with the above report. CT FOOT LEFT WO CONTRAST Narrative CT FOOT LEFT WO CONTRAST HISTORY: 59 years-old; Male; Osteomyelitis suspected, foot swelling, diabetic COMPARISON: Left foot radiographs 03/16/2020 TECHNIQUE: CT imaging of the left foot tissues and bones is obtained in 3.0 mm intervals without IV contrast. Sagittal and coronal reconstructions are generated and reviewed. BONE: Bone erosions and periosteal reaction are seen along the posterior calcaneus. Extensive intramedullary gas is noted throughout the calcaneus. There is no acute fracture or dislocation. Well-corticated osseous fragment distal to the medial malleolus (2:27) is likely due to a remote avulsion fracture. SOFT TISSUES: Significant soft tissue swelling and extensive subcutaneous gas are noted along the plantar aspect of the midfoot and hindfoot with a skin defect in the medial aspect of the heel. Soft tissue gas is also noted deep to the plantar fascia as well as the middle articular surface of the calcaneus. Vascular calcifications are seen. Impression Findings consistent with calcaneal osteomyelitis with extensive calcaneal intramedullary gas. Skin defect in the medial heel with extensive soft tissue swelling and gas, including deep to the plantar fascia. Intra-articular gas in the subtalar joint may represent septic arthritis. Preliminary Report Dictated by Resident: Sergio Thomas I, Lexi Palacio MD., have reviewed this study and agree with the above report. US RETROPERITONEAL COMPLETE Narrative ULTRASOUND RENAL INDICATION: KORY COMPARISON: 11/17/2019. FINDINGS: Right kidney measures 12.8 x 6.7 x 5.7 cm. There is normal renal cortical echogenicity and corticomedullary differentiation. No hydronephrosis or renal calculi. Right interpolar region cyst measuring 2.4 x 2.1 x 1.9 cm. There is qualitatively normal perfusion on color doppler interrogation. Left kidney measures 11.9 x 6.5 x 5.3 cm. There is normal renal cortical echogenicity and corticomedullary differentiation. No hydronephrosis or renal calculi. There is qualitatively normal perfusion on color doppler interrogation. Partially decompressed urinary bladder is circumferentially thickened out of proportion to degree of distention. Urinary bladder wall measures 8 mm in thickness. Partially visualized liver appears diffusely steatotic. Impression Essentially normal renal ultrasound except for right interpolar region cyst. Partially decompressed urinary bladder with circumferentially thickened shirley. Findings can be seen with cystitis and/or degree of chronic urinary bladder outlet obstruction. Correlate with UA. Partially visualized diffuse hepatic steatosis. XR CHEST 1 VW Narrative EXAM: XR CHEST 1 VW 03/16/2020 3:36 AM HISTORY: 59 years-old Male with SOB TECHNIQUE: Portable erect AP view of the chest. COMPARISON: X-ray chest 02/04/2020, CT chest angiogram 02/03/2020 FINDINGS: Lines and tubes: Dual-chamber pacemaker lead tips project over the right atrium and right ventricle. Sternotomy wires are unchanged. Proximal left subclavian artery vascular stent is noted. Cholecystectomy and left upper quadrant surgical clips visualized. Cardiomediastinal: The cardiomediastinal silhouette is unchanged. Lungs and pleura: Suboptimal inspiratory volumes resulting in bronchial vascular crowding. Lungs are otherwise clear. No focal consolidation, pneumothorax. No discernible pneumothorax or pleural effusion. Musculoskeletal: No acute osseous abnormality. Impression No acute cardiopulmonary process. Preliminary Report Dictated by Resident: Nataly Gaffney I, Mango Thomas MD., have reviewed this study and agree with the above report. PAST MEDICAL HISTORY Past Medical History: Diagnosis Date Arthritis BPH (benign prostatic hyperplasia) CAD (coronary artery disease) CVA (cerebral vascular accident) DM (diabetes mellitus) Fibromyalgia HLD (hyperlipidemia) HTN (hypertension) Hx of CABG 2002 Kidney stones Major depressive disorder Past Surgical History: Procedure Laterality Date BACK SURGERY 1997 for impinged nerve & herniated disk CHOLECYSTECTOMY 2003 CORONARY ARTERY BYPASS GRAFT [address] [facility]; for bradycardia CO CSI ANY OTHER THAN PCI 2 YR 2018 CO REMOVAL OF KIDNEY STONE 2009 ALLERGIES No Known Allergies MEDICATIONS reviewed in the chart. Current Facility-Administered Medications Medication Dose Route Frequency Last Rate Last Dose acetaminophen (TYLENOL) tablet 650 mg 650 mg Oral Q6HPRN aspirin chewable tablet 81 mg 81 mg Oral DAILY 81 mg at 03/16/2012 atorvastatin (LIPITOR) tablet 40 mg 40 mg Oral QHS 40 mg at 03/16/202109 heparin (1,000 unit/mL, 10 mL vial) 3,000 Units Slow IV Push FOR REBOLUSING heparin 25,000 Units/250 mL (Premixed Bag) in 0.45 % NS 1,300 Units/hr IV Infusion TITRATE 11.5mL/hr at 03/16/20 1730 1,150 Units/hr at 03/16/20 173 HYDROcodone-acetaminophen (NORCO) 10-325 mg tablet 1 tablet 1 tablet Oral Q6HPRN 1 tablet at 03/16/202109 insulin NPH (HUMULIN N) injection 5 Units 5 Units Subcutaneous QAM+HS 5 Units at 03/16/202108 lactobacillus acidophilus (ACIDOPHILLUS) 25 million cell -100 mg captab 1 tablet 1 tablet Oral TID 1 tablet at 03/16/202109 levothyroxine (SYNTHROID) tablet 50 mcg 50 mcg Oral QAM-0600 50 mcg at 03/16/20 0457 lidocaine 1% (PF) (XYLOCAINE) injection 5 mL 5 mL Subcutaneous PRN meropenem (MERREM) 500 mg in NaCl 0.9% (NS) 100 mL MINI-BAG 500 mg IV Piggyback Q8H ABX 500 mg at 03/16/20 1622 morpHINE injection 2 mg 2 mg Slow IV Push Q4HPRN NaCl 0.9% (NS) 1000 mL + KCL 20 mEq IV Infusion CONTINUOUS 150 mL/hr at 03/16/20 1219 NaCl 0.9% (NS) injection 10 mL 10 mL Slow IV Push PRN ondansetron (ZOFRAN (PF)) injection 4 mg 4 mg Slow IV Push Q6HPRN 4 mg at 03/16/20 1219 pantoprazole (PROTONIX) EC tablet 20 mg 20 mg Oral DAILY 20 mg at 03/16/20 0842 Sliding Scale Insulin-Regular + Fsbg Testing Subcutaneous Q4H 4 Units at 03/16/202109 vancomycin 1250 mg in NS 250 mL RTU IV Piggyback 1,250 mg 15 mg/kg IV Piggyback Q24H ABX 1,250 mg at 03/16/20 0404 venlafaxine (EFFEXOR) tablet 75 mg 75 mg Oral BID 75 mg at 03/16/202109 SOCIAL HISTORY Social History Socioeconomic History Marital status: Spouse name: Not on file Number of children: 0 Years of education: Not on file Highest education level: Not on file Occupational History Occupation: disabled Social Needs Financial resource strain: Somewhat hard Food insecurity Worry: Sometimes true Inability: Sometimes true Transportation needs Medical: Yes Non-medical: Yes Tobacco Use Smoking status: Former Smoker Types: Cigarettes Quit date: 2015 Years since quittin.8 Smokeless tobacco: Never Used Tobacco comment: quit [...] file Gets together: Not on file Attends baptist service: Not on file Active member of [...] file Social History Narrative Not on file FAMILY History Family History Problem Relation Age of Onset [place] (myocardial infarction) Father 65 Diabetes Maternal Grandmother [place] (myocardial infarction) Maternal Grandfather Stroke Maternal Grandfather Pauline Cox DO - 03/16/2020 4:24 PM CDTAssociated Order(s): CONSULT GENERAL SURGERY GENERAL SURGERY CONSULT Date of Service: 03/16/2020 Requesting Physician: ED Chief Complaint: We were asked to see this patient in the Floor to give our opinion regarding Ernie Rooney 59 year old male who presents with osteomyelitis of the left calcaneous. Surgery consultation for possible left BKA. HPI Mr. Rooney is a 59 y/o male with PMH significant for HTN, DM, HLD, stroke with residual left sided weakness, s/p pacemaker, CAD s/p CABG 2002 and multiple PCI - most recently earlier this year, and paroxysmal a fib. Patient is non compliant with his medications due to inability to pay for them andhas not been on any for "months". Patient presented to the ED when an old foot ulcer present for "months" opened up and started oozing blood tinged fluid. He endorses pain to the entire back half of his left foot, and says he "just wants it cut off". Approximately 8 months ago patient had a small injury to his left foot which never healed and subsequently became infected and he was found to have osteomyelitis in the left foot in November of this year.He had a PICC placed and was admitted to an LTAC from IV antibiotic treatment of his osteomyelitis at that time, but he left AMA. CURRENT HOSPITAL MEDICATIONS Current Facility-Administered Medications Medication Dose Route Frequency Last Rate Last Dose acetaminophen (TYLENOL) tablet 650 mg 650 mg Oral Q6HPRN aspirin chewable tablet 81 mg 81 mg Oral DAILY 81 mg at 03/16/20 0912 atorvastatin (LIPITOR) tablet 40 mg 40 mg Oral QHS heparin (1,000 unit/mL, 10 mL vial) 3,000 Units Slow IV Push FOR REBOLUSING heparin 25,000 Units/250 mL (Premixed Bag) in 0.45 % NS 1,300 Units/hr IV Infusion TITRATE 13 mL/hr at 03/16/20 1057 1,300 Units/hr at 03/16/20 1057 HYDROcodone-acetaminophen (NORCO) 10-325 mg tablet 1 tablet 1 tablet Oral Q6HPRN 1 tablet at 03/16/20 1218 insulin NPH (HUMULIN N) injection 5 Units 5 Units Subcutaneous QAM+HS lactobacillus acidophilus (ACIDOPHILLUS) 25 million cell -100 mg captab 1 tablet 1 tablet Oral TID 1 tablet at 03/16/20 1426 levothyroxine (SYNTHROID) tablet 50 mcg 50 mcg Oral QAM-0600 50 mcg at 03/16/20 0457 lidocaine 1% (PF) (XYLOCAINE) injection 5 mL 5 mL Subcutaneous PRN meropenem (MERREM) 500 mg in NaCl 0.9% (NS) 100 mL MINI-BAG 500 mg IV Piggyback Q8H ABX 500 mg at 03/16/20 1622 morpHINE injection 2 mg 2 mg Slow IV Push Q4HPRN NaCl 0.9% (NS) 1000 mL + KCL 20 mEq IV Infusion CONTINUOUS 150 mL/hr at 03/16/20 1219 NaCl 0.9% (NS) injection 10 mL 10 mL Slow IV Push PRN ondansetron (ZOFRAN (PF)) injection 4 mg 4 mg Slow IV Push Q6HPRN 4 mg at 03/16/20 1219 pantoprazole (PROTONIX) EC tablet 20 mg 20 mg Oral DAILY 20 mg at 03/16/20 0842 Sliding Scale Insulin-Regular + Fsbg Testing Subcutaneous Q4H 4 Units at 03/16/20 1216 vancomycin 1250 mg in NS 250 mL RTU IV Piggyback 1,250 mg 15 mg/kg IV Piggyback Q24H ABX 1,250 mg at 03/16/20 0404 venlafaxine (EFFEXOR) tablet 75 mg 75 mg Oral BID 75 mg at 03/16/20 0842 REVIEW OF SYSTEMS Reviewed previous ROS from consult by Dr. Geronimo dated 03/16/2020 and there are no changes. HISTORIES Past Medical History: Diagnosis Date Arthritis BPH (benign prostatic hyperplasia) CAD (coronary artery disease) CVA (cerebral vascular accident) DM (diabetes mellitus) Fibromyalgia HLD (hyperlipidemia) HTN (hypertension) Hx of CABG 2002 Kidney stones Major depressive disorder Past Surgical History: Procedure Laterality Date BACK SURGERY 1997 for impinged nerve & herniated disk CHOLECYSTECTOMY 2003 CORONARY ARTERY BYPASS GRAFT [address] [facility]; for bradycardia CO CSI ANY OTHER THAN PCI 2 YR 2018 CO REMOVAL OF KIDNEY STONE 2009 Family History Problem Relation Age of Onset [place] (myocardial infarction) Father 65 Diabetes Maternal Grandmother [place] (myocardial infarction) Maternal Grandfather Stroke Maternal Grandfather Social History Socioeconomic History Marital status: Spouse name: Not on file Number of children: 0 Years of education: Not on file Highest education level: Not on file Occupational History Occupation: disabled Social Needs Financial resource strain: Somewhat hard Food insecurity Worry: Sometimes true Inability: Sometimes true Transportation needs Medical: Yes Non-medical: Yes Tobacco Use Smoking status: Former Smoker Types: Cigarettes Quit date: 2015 Years since quittin.8 Smokeless tobacco: Never Used Tobacco comment: quit [...] file Gets together: Not on file Attends baptist service: Not on file Active member of [...] file Social History Narrative Not on file Physical Exam Vitals: Vitals: 03/16/20 1030 03/16/20 1053 03/16/20 1200 03/16/20 1600 BP: 95/67 114/74 101/60 106/65 Pulse: 70 76 Resp: 18 18 Temp: 36.3 C (97.3 F) 36.4 C (97.5 F) TempSrc: Oral Oral SpO2: 99% 99% Weight: Height: (-)=Negative,(+)=Positive General: well developed HEENT: Negative, multiple tattoos to face Respiratory: no added work of breathing on room air Cardio: RRR Abdomen: ND Rectal: not tested Musculoskeletal: Foot: positive findings: dorsalis pedis pulse nonpalpable on the left, palpable left popliteal pulse. +1 DP pulse on right. Skin: 1 cm ulcer on medial plantar aspect of left calcaneous without exudate, erythema, or eschar. 6cm by 4 cm black gangrenous necrosis of posterior calcaneous without signs of wet gangrene, exudate, erythema. Neurologic: alert and oriented x 3 Psychiatric: negative and alert, oriented, with appropriate affect LABORATORY CBC WBC (10*3/L) Date Value 03/16/2020 19.31 (H) RBC (10*6/L) Date Value 03/16/2020 3.51 (L) PLT (10*3/L) Date Value 03/16/2020 339 (H) HGB (g/dL) Date Value 03/16/2020 9.9 (L) HCT (%) Date Value 03/16/2020 28.5 (L) BMP NA (mmol/L) Date Value 03/16/2020 135 K (mmol/L) Date Value 03/16/2020 2.7 (LL) CALCIUM (mg/dL) Date Value 03/16/2020 7.3 (L) CL (mmol/L) Date Value 03/16/2020 107 BUN (mg/dL) Date Value 03/16/2020 39 (H) CREATININE (mg/dL) Date Value 03/16/2020 1.46 (H) GLUCOSE (mg/dL) Date Value 03/16/2020 259 (H) CO2 TOTAL (mmol/L) Date Value 03/16/2020 17 (L) Hepatic Function Panel ALBUMIN (g/dL) Date Value 03/16/2020 3.1 (L) T PROTEIN (g/dL) Date Value 03/16/2020 6.5 TOTAL BILI (mg/dL) Date Value 03/16/2020 0.6 BILI UNCON (mg/dL) Date Value 02/03/2020 0.5 BILI CONJ (mg/dL) Date Value 02/03/2020 0.0 ALT(SGPT) (U/L) Date Value 02/13/2019 18 ALTv (U/L) Date Value 03/16/2020 61 (H) AST(SGOT) (U/L) Date Value 03/16/2020 63 (H) ALK PHOS (U/L) Date Value 03/16/2020 196 (H) PT/INR PROTIME PATIENT (Seconds) Date Value 03/16/2020 17.9 (H) INR (no units) Date Value 03/16/2020 1.6 RADIOLOGY Xray Left foot IMPRESSION Skin defect and subcutaneous gas in the heel with suspected osteomyelitis of the posterior calcaneus. Moderate midfoot osteoarthrosis. CT Left Foot Findings consistent with calcaneal osteomyelitis with extensive calcaneal intramedullary gas. Skin defect in the medial heel with extensive soft tissue swelling and gas, including deep to the plantar fascia. Intra-articular gas in the subtalar joint may represent septic arthritis. Duplex Scan LLE Lt Lower extremity On the LEFT, the distal external iliac, common femoral, profunda femoral, superficial femoral and popliteal arteries were patent with triphasic Doppler waveforms throughout. There is stenosis noted in the proximal poplitiall artery. There is decreased flow noted in the anterior tibial, posterior tibial, peroneal arteries. There is increased flow noted in the dorsalis pedis artery. LLE Doppler Doppler Waveforms. Posterior tibial artery = Monophasic. Dorsalis pedis artery = Triphasic. PATHOLOGY No new Pathology ASSESSMENT Diagnosis- Non-healing foot ulcer, dry gangrene, extensive osteomyelitis of the left calcaneous Our recommendations are as follows: - BKA scheduled for 03/17/2020 - Stop Heparin drip 8 hours prior to procedure - NPO after midnight - Order blood type and screen Brian Quintanilla ID3 [facility] General Surgery I personally examined the patient on 03/16/2020 and have verified the MS3 medical student documentation and/or findings, including the history, physical exam, and medical decision making. Additionally,I have personally performed or re-performed the physical exam and medical decision making activitiesof this patient's evaluation and management service. Patient with extensive PMH to include HF, CABG, PAD, CVA, a fib, and chronic nonhealing left foot ulcer found to have osteomyelitis in November of this year - incompletely treated at that time due to patient leaving LT[facility] AMA. Patient presents for increased pain, drainage, and swelling of left foot. CT shows extensive intralaminar gas of the calcaneous and possible septic joint. Vascular studies show patent PT, AT, peroneal arteries however with decreased flow. Plan for OR tomorrow for Left BKA Heparin drip must be stopped 8 hours prior to OR (Midnight) NPO past midnight Continue antibiotics - Merrem and Vancomycin Patient seen and examined with Dr. 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 (01/17/2019) POA: Yes Type 2 diabetes mellitus without complication, without long-term current use of insulin (01/17/2019) POA: Yes Essential hypertension (01/17/2019) POA: Yes Other hyperlipidemia (01/17/2019) POA: Yes Pacemaker (08/07/2019) POA: Yes PAF (paroxysmal atrial fibrillation) (08/07/2019) POA: Yes Elevated brain natriuretic peptide (BNP) level (02/04/2020) POA: Yes Preop cardiovascular exam (03/16/2020) POA: Unknown Chronic diastolic congestive heart failure (03/16/2020) POA: Unknown KORY (acute kidney injury) (03/16/2020) POA: Unknown Associated attestation - Amarilys Shnanon MD - 03/18/2020 4:39 PM CDTAttending Attestation: I personally evaluated and examined the patient on 03/16/2020 and agree with Surgery Resident Dr. Wall and Medical Student Brian Quintanilla's consultation note as written. I actively participated in the decision-making process. Please see the resident's note for additional details. 59 YEAR-OLD M with PMHsignificant for HTN, T2DM, HLD, CAD s/p CABG and PCI, and medical noncompliance with failed nonsurgical management of a left heel ulcer with underlying osteomyelitis. Labs and imaging reviewed. Left heel with gangrene, imaging confirms osteomyelitis. Plan for left BKA tomorrow. Will discontinue heparin drip 8 hours prior to surgery. Amarilys Shannon M.D. 03/18/2020 16:35Cai, MD Chris - 03/16/2020 9:42 AM CDTAssociated Order(s): CONSULT CARDIOLOGY [facility] Cardiology Consult PCP: Fransisco Elam Date of Service: 03/16/2020 CHIEF COMPLAINT/reason for consult: preop cardiac evaluation History of Present Illness This is a 59 year-old male with PMH DM, HTN, HLD, stroke, s/p pacemaker, CAD s/p CABG and PCI, etc. He was admitted for left food osteomyelitis. We are consulted for preop cardiac evaluation. He denieschest pain or worsening dyspnea. No edema. Has lost some weight. Last PCI was in 06/2019 with BRIEN. Due to financial issues, he has not been taking cardiac medications for a while. EKG showed paced rhythm. Troponin negative. PAST MEDICAL HISTORY Past Medical History: Diagnosis [...] [address] [facility]; for bradycardia CO CSI ANY OTHER THAN PCI 2 YR 2018 CO REMOVAL OF KIDNEY STONE 2009 Family History Problem Relation Age of Onset [place] (myocardial infarction) Father 65 Diabetes Maternal Grandmother [place] (myocardial infarction) Maternal Grandfather Stroke Maternal Grandfather ALLERGIES No Known Allergies MEDICATIONS No current facility-administered medications on file prior to encounter. Current Outpatient Medications on File Prior to Encounter Medication Sig Dispense Refill apixaban 5 mg tablet Take 1 tablet by mouth 2 (two) times daily. Indications: atrial fibrillation 60 tablet 2 atorvastatin 40 mg tablet Take 1 tablet by mouth at bedtime. 30 tablet 0 clopidogreL 75 mg tablet Take 1 tablet by mouth daily. 30 tablet 2 furosemide 40 mg tablet Take 1 tablet by mouth every morning and evening. 60 tablet 0 glipiZIDE 5 mg tablet Take 1 tablet by mouth 2 (two) times daily before breakfast and dinner. 60tablet 0 KCL 20 mEq tablet Take 1 tablet by mouth daily. 30 tablet 1 levothyroxine 50 mcg tablet Take 1 tablet by mouth every morning. 30 tablet 0 lisinopriL 2.5 mg tablet Take 1 tablet by mouth daily. 30 tablet 0 metoprolol succinate XL 25 mg 24 hr tablet Take 1 tablet by mouth 2 (two) times daily. 60 tablet1 nitroglycerin 0.[address] 1 tablet under the tongue every 5 (five) minutes as needed for Chest pain. 1 Bottle 2 pantoprazole 20 mg EC tablet Take 1 tablet by mouth daily. 30 tablet 1 tamsulosin 0.4 mg 24 hr capsule Take 1 capsule by mouth daily. 30 capsule 0 venlafaxine 75 mg tablet Take 1 tablet by mouth 2 (two) times daily. 30 tablet 0 SOCIAL HISTORY Social History Socioeconomic History Marital status: Spouse name: Not on file Number of children: 0 Years of education: Not on file Highest education level: Not on file Occupational History Occupation: disabled Social Needs Financial resource strain: Somewhat hard Food insecurity Worry: Sometimes true Inability: Sometimes true Transportation needs Medical: Yes Non-medical: Yes Tobacco Use Smoking status: Former Smoker Types: Cigarettes Quit date: 2015 Years since quittin.8 Smokeless tobacco: Never Used Tobacco comment: quit [...] file Gets together: Not on file Attends baptist service: Not on file Active member of [...] Narrative Not on file REVIEW OF SYSTEMS General: (-) fever, (-) chills, (-) weight change, (-) dizziness, (-) fatigue Skin: (-) rash HEENT: (-) headache, (-) change in vision Neck: (-) difficulty swallowing Heme: negative Resp: (-) cough, (-) dyspnea on exertion Cardio: (-) chest pain, (-) palpitations, (-) syncope GI: (-) vomiting, (-) diarrhea : negative Endo: (+) diabetes, (-) thyroid disease Neuro: (-) numbness, (-) tingling, (-) weakness Back: (-) pain JANELL: (-) muscle pain, (-) claudication Psych: (-) anxiety, (-) depression PHYSICAL EXAMINATION Vitals: 03/16/20 0348 03/16/20 0400 03/16/20 0623 03/16/20 0800 BP: 99/59 102/55 90/58 (!) 85/54 Pulse: 86 76 70 Resp: Temp: 36.6 C (97.9 F) 36.2 C (97.2 F) TempSrc: Temporal Artery Oral SpO2: 100% 99% 97% Weight: 79.4 kg (175 lb 2 oz) Height: 1.702 m (5' 7") Constitutional: alert and oriented x 3 (person, place and date/time); no apparent distress ENT: normocephalic atraumatic, supple, no lymphadenopathy, no bruits, no JVD Lungs: clear to auscultation bilaterally Cardiovascular: S1, S2 normal, regular; no murmurs, rubs or gallops GI: soft; non-tender; non-distended; normoactive bowel sounds : not examined Musculoskeletal: Extremities: no clubbing, cyanosis, or edema Skin: no rashes Neuro: no focal deficits LABS - reviewed pertinent labs as below: CBC BMP PT/INR WBC (10*3/L) Date Value 03/16/2020 19.31 (H) NA (mmol/L) Date Value 03/16/2020 134 (L) No results found for: PT PLT (10*3/L) Date Value 03/16/2020 339 (H) K (mmol/L) Date Value 03/16/2020 4.1 INR (no units) Date Value 02/03/2020 1.2 HGB (g/dL) Date Value 03/16/2020 9.9 (L) BUN (mg/dL) Date Value 03/16/2020 41 (H) HCT (%) Date Value 03/16/2020 28.5 (L) CREATININE (mg/dL) Date Value 03/16/2020 1.74 (H) LIPID PROFILE GLUCOSE (mg/dL) Date Value 03/16/2020 382 (H) CHOL (mg/dL) Date Value 03/16/2020 174 TSH LDL CHOL (no units) Date Value 03/16/2020 Comment: Unable to calculate LDL due to elevated triglyceride level greater than 400 mg/dL. 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 Currently no high risk features such as angina, arrhythmia, or volume overload. His cardiac risk is probably moderate. Recommend to proceed with surgery and close cardiac monitoring. If surgery/anesthesia teams are not comfortable, can transfer to [place]. CAD--s/p CABG. S/p PCI stenting in 06/2019. Continue ASA/lipitor. Ok to hold plavix--he has not been taking it anyway. Hold metoprolol due to low BP. Troponin negative. HFpEF--Chronic. Hold lasix due to KORY. No volume overload. Watch closely. HTN--Relatively low now probably due to sepsis and dehydration. Hold antihypertensives. HLD--LDL 122 on lipitor 40 mg. Recommend to increase to 80 mg and consider adding zetia. I don't think he can afford PCSK-9i. PAfib--now in sinus rhythm. Continue Eliquis once surgery is done. Pacemaker--Functioning well per EKG. KORY--continue IVF cautiously. Thank you for allowing us to participate in the care of your patient. Please feel free to contact usfor any questions or if we can be of further assistance. Chris Geronimo MD, [facility], [place] Organizational Research Consultant, Division of Cardiology [facility] documented in this encounter Nursing Notes Kathy Chavarria RN - 03/17/2020 4:00 AM [id number] - PTT 67. Heparin dose therapeutic at 1050 units/hr. Next PTT at 1600 documented in this encounter ED Notes Camille Dooley RN - 03/15/2020 11:52 PM CDTPatient presents as an alert and oriented male that has a non-healing wound on the bottom of the left foot. Patient states that he has had this wound for 8 months. Jameson Verduzco DO - 03/15/2020 11:40 PM CDT EMERGENCY DEPARTMENT ENCOUNTER [facility] Patient Name: Ernie Rooney Date of : 1960 59 year old Exam Room:TX1/MA1 Primary Care Physician: Fransisco Elam [facility] Patient Escorted by: Family [5] Mode of Arrival: Personal means [1] EMS Treatment Prior to ED Arrival: HEART SURGEON treatment: None Chief Complaint Chief Complaint Patient presents with Wound diabetic foot wound on left foot. HPI 59-year-old male presenting with diabetic nonhealing wound of the medial aspect of the left foot as well as necrosis of the heel concerning for osteomyelitis. Patient additionally has multiple comorbidities including PAD with poor perfusion. Pain is now exquisitely painful. He rates it 10 out of 10 . No fever. Poor compliance. Out of medications. Past Medical History / Immunizations Past Medical History: Diagnosis Date Arthritis BPH (benign prostatic hyperplasia) CAD (coronary artery disease) CVA (cerebral vascular accident) DM (diabetes mellitus) Fibromyalgia HLD (hyperlipidemia) HTN (hypertension) Hx of CABG 2002 Kidney stones Major depressive disorder Tetanus received in last 5 years: Yes Childhood immunizations: Up-to-date Past Surgical History Past Surgical History: Procedure Laterality Date BACK SURGERY 1997 for impinged nerve & herniated disk CHOLECYSTECTOMY 2003 CORONARY ARTERY BYPASS GRAFT [address] [facility]; for bradycardia CO CSI ANY OTHER THAN PCI 2 YR 2018 CO REMOVAL OF KIDNEY STONE 2009 Allergies No Known Allergies Social History Tobacco Use Former Smoker; Quit 2015; Smoked: Cigarettes. Smokeless Tobacco: Never used smokeless tobacco. Comments: quit 4 years ago Alcohol Use No. Comments: quit drinking 2013 but drank heavily before this Drug Use No. Review of Systems Review of Systems Constitutional: Negative for activity change, appetite change, chills, diaphoresis and fever. HENT: Negative for sore throat and voice change. Eyes: Negative for pain and visual disturbance. Respiratory: Negative for cough, chest tightness and shortness of breath. Cardiovascular: Negative for chest pain and leg swelling. Gastrointestinal: Negative for abdominal pain, blood in stool, constipation and diarrhea. Genitourinary: Negative for dysuria, urgency and difficulty urinating. Musculoskeletal: Negative for back pain. Skin: Positive for color change and wound. Negative for rash. Neurological: Negative for dizziness and headaches. Hematological: Does not bruise/bleed easily. Physical Exam BP 117/69 | Pulse 92 | Temp 36.3 C (97.3 F) (Oral) | Resp 28 | Ht 1.702 m (5' 7") | Wt 79.4kg (175 lb) | SpO2 100% | BMI 27.41 kg/m Physical Exam Vitals signs and nursing note reviewed. Constitutional: Appearance: He is well-developed. HENT: Head: Normocephalic and atraumatic. Eyes: General: No scleral icterus. Conjunctiva/sclera: Conjunctivae normal. Pupils: Pupils are equal, round, and reactive to light. Neck: Musculoskeletal: Normal range of motion and neck supple. Vascular: No JVD. Cardiovascular: Rate and Rhythm: Normal rate and regular rhythm. Heart sounds: Normal heart sounds. Pulmonary: Effort: Pulmonary effort is normal. Breath sounds: Normal breath sounds. No stridor. Abdominal: General: Bowel sounds are normal. Palpations: Abdomen is soft. Musculoskeletal: Normal range of motion. Skin: General: Skin is warm and dry. Findings: Erythema, lesion and wound present. Comments: Foot has a 1 cm ulceration in the medial aspect of the heel. He additionally has color changes on the posterior aspect of the heel which are concerning for underlying infection and gangrene. Neurological: Mental Status: He is alert and oriented to person, place, and time. Psychiatric: Behavior: Behavior normal. Thought Content: Thought content normal. Labs Recent Results (from the past 24 hour(s)) Lactic Acid Whole Blood Collection Time: 03/16/20 12:56 AM Result Value Ref Range LACTIC ACID 4.72 mmol/L CBC WITH DIFF Collection Time: 03/16/20 12:57 AM Result Value Ref Range WBC 19.31 (H) 4.20 - 10.70 10*3/L RBC 3.51 (L) 4.26 - 5.52 10*6/L HGB 9.9 (L) 12.2 - 16.4 g/dL HCT 28.5 (L) 38.4 - 49.3 % MCV 81.2 (L) 81.7 - 95.6 fL MCH 28.2 26.1 - 32.7 pg MCHC 34.7 31.2 - 35.0 g/dL RDW-SD 38.5 38.5 - 51.6 fL RDW-CV 13.0 12.1 - 15.4 % PLT 339 (H) 150 - 328 10*3/L MPV 10.6 9.8 - 13.0 fL NRBC/100 WBC 0.0 0.0 - 10.0 /100 WBCs NRBC x10^3 <0.01 10*3/L GRAN MAT (NEUT) % 82.8 % IMM GRAN % 3.40 % LYMPH % 7.1 % MONO % 4.9 % EOS % 1.2 % BASO % 0.6 % GRAN MAT x10^3(ANC) 16.00 (H) 1.99 - 6.95 10*3/uL IMM GRAN x10^3 0.65 (H) 0.00 - 0.06 10*3/uL LYMPH x10^3 1.38 1.09 - 3.23 10*3/uL MONO x10^3 0.94 0.36 - 1.02 10*3/uL EOS x10^3 0.23 0.06 - 0.53 10*3/uL BASO x10^3 0.11 (H) 0.01 - 0.09 10*3/uL COMP. METABOLIC PANEL ([id number]) Collection Time: 03/16/20 12:57 AM Result Value Ref Range NA 134 (L) 135 - 145 mmol/L K 4.1 3.5 - 5.0 mmol/L CL 100 98 - 108 mmol/L CO2 TOTAL 16 (L) 23 - 31 mmol/L AGAP 18 (H) 2 - 16 BUN 41 (H) 7 - 23 mg/dL GLUCOSE 382 (H) 70 - 110 mg/dL CREATININE 1.74 (H) 0.60 - 1.25 mg/dL TOTAL BILI 0.6 0.1 - 1.1 mg/dL CALCIUM 8.6 8.6 - 10.6 mg/dL T PROTEIN 6.5 6.3 - 8.2 g/dL ALBUMIN 3.1 (L) 3.5 - 5.0 g/dL ALK PHOS 196 (H) 34 - 122 U/L ALTv 61 (H) 5 - 50 U/L AST(SGOT) 63 (H) 13 - 40 U/L eGFR Calculation (Non-) 40.1 mL/min/1.73m2 eGFR Calculation () 48.6 mL/min/1.73m2 Imaging Hospital Encounter on 03/15/20 XR FOOT <3 VW LEFT Narrative XR FOOT <3 VW LEFT HISTORY: 59 years-old Male; osteo / heel COMPARISON: Left foot radiographs 02/04/2020 FINDINGS: Radiographs of the left foot demonstrate soft tissue swelling and subcutaneous gas in the plantar aspect of the hindfoot with a skin defect identified in the heel. Focal osteopenia and bone erosions are noted along the medial process of the plantar calcaneus. There is no acute fracture or dislocation. Prominent talonavicular dorsal osteophytosis and subchondral cystic changes are noted. Diabetes type vascular calcifications are noted. Impression Skin defect and subcutaneous gas in the heel with osteomyelitis of the calcaneal medial process. Moderate midfoot osteoarthrosis. Preliminary Report Dictated by Resident: Sergio Thomas Orders and Treatments Orders Placed This Encounter Procedures XR FOOT <3 VW LEFT Blood Culture - Peripheral # 1 Blood Culture - Peripheral # 2 CBC WITH DIFF COMP. METABOLIC PANEL (23878) Lactic Acid Whole Blood Lactic Acid Whole Blood GLYCOSYLATED HEMOGLOBIN (A1C) LIPID PANEL ([id number])(TOTAL CHOLESTEROL, TRIGLYCERIDES, HDL) SEDIMENTATION RATE Orders Placed This Encounter Medications NaCl 0.9% (NS) bolus infusion 2,382 mL piperacillin-tazobactam (ZOSYN) injection 3.375 g morpHINE injection 4 mg ondansetron (ZOFRAN (PF)) injection 4 mg Sliding Scale Insulin-Regular + Fsbg Testing Procedures See ED Procedure Note Notes & MDM Patient was evaluated for an emergency medical condition related to Wound (diabetic foot wound on left foot.) . Differential diagnoses considered by presenting complaints but not limited to: Osteomyelitis, gas gangrene, diabetic nonhealing wound, sepsis, and others.. Labs:were ordered, and resulted, any relevant abnormalities were considered. Imaging:Ordered, and resulted, any relevant abnormalities were considered. IV fluids: critical presentation requiring fluid challenge Gangrene Procedures:were not performed. Assessment: 59-year-old male with diabetes and PAD. He has osteomyelitis and likely gas gangrene of the foot. Elevated lactic and leukocytosis. Patient initiated therapy with IV fluids and Zosyn. Patient admitted to the hospital for further evaluation and management surgical evaluation. History, physical exam findings, results of visit, differential diagnosis, medication regimens and plan of future care have been considered. Additional MDM may be found in the ED course. Differential diagnosis considered and final disposition made based on information gathered during evaluation and may not be completely ruled out or specifically listed. Vital signs were rechecked before final disposition and determined to be expected for patient's clinical condition.. Diagnosis ICD-10-CM ICD-9-CM 1. Left foot pain M79.672 729.5 2. Osteomyelitis of left foot, unspecified type M86.9 730.27 3. Gas gangrene A48.0 040.0 Disposition & Follow Up ED Disposition ED Disposition Condition Comment Admit - Inpatient Stable Is this patient COVID positive or a patient under investigation (PUI)?: No Treatment Team: [facility] [[id number]] Primary reason for admission: Osteomyelitis [[id number]] Is (or was) this a planned re-admission?: No My concerns are:: pain management My concerns are:: need for IV therapies My concerns are:: risk of mortality My concerns are:: risk of morbidity My concerns are:: need for invasive procedure The risks to the patient are: morbidity or mortality in the short term Expected length of stay: At least 2 midnights Expected discharge disposition: Home Self Care Certification: I certify the inpatient services are medically necessary and in accordance with Medicare regulations. Patient's Medications START taking these medications No medications on file CONTINUE taking these medications which have NOT CHANGED APIXABAN 5 MG TABLET Take 1 tablet by mouth 2 (two) times daily. Indications: atrial fibrillation ATORVASTATIN 40 MG TABLET Take 1 tablet by mouth at bedtime. CLOPIDOGREL 75 MG TABLET Take 1 tablet by mouth daily. FUROSEMIDE 40 MG TABLET Take 1 tablet by mouth every morning and evening. GLIPIZIDE 5 MG TABLET Take 1 tablet by mouth 2 (two) times daily before breakfast and dinner. KCL 20 MEQ TABLET Take 1 tablet by mouth daily. LEVOTHYROXINE 50 MCG TABLET Take 1 tablet by mouth every morning. LISINOPRIL 2.5 MG TABLET Take 1 tablet by mouth daily. METOPROLOL SUCCINATE XL 25 MG 24 HR TABLET Take 1 tablet by mouth 2 (two) times daily. NITROGLYCERIN 0.[address] 1 tablet under the tongue every 5 (five) minutes as needed for Chest pain. PANTOPRAZOLE 20 MG EC TABLET Take 1 tablet by mouth daily. TAMSULOSIN 0.4 MG 24 HR CAPSULE Take 1 capsule by mouth daily. VENLAFAXINE 75 MG TABLET Take 1 tablet by mouth 2 (two) times daily. START taking Modified Medications as Prescribed No medications on file STOP taking these medications No medications on file Jameson Mejia DO 03/16/2020 12:25 AM ACTIVE COVID-19 PANDEMIC. documented in this encounter Miscellaneous Notes Care Plan - Minnie Haynes RN - 03/26/2020 8:26 AM [employer] Problem: Discharge Planning Goal: Absence of venous thromboembolism Outcome: Progressing as expected Goal: Adequate for discharge Outcome: Progressing as expected Goal: Effective communication Outcome: Progressing as expected Problem: Pain Goal: Control of pain at or below patient's documented comfort goal Outcome: Progressing as expected Goal: Reduction in pain sensation Outcome: Progressing as expected Problem: Falls, Risk of Goal: Absence of falls Outcome: Progressing as expected Problem: Skin integrity Impaired (Risk or Actual) Goal: Wound healing Outcome: Progressing as expected Goal: Prevention of new skin breakdown Outcome: Progressing as expected Problem: Infection Risk Goal: Absence of infection Outcome: Progressing as expected Problem: Glucose control Goal: Glucose level within specified parameters Outcome: Progressing as expected are Plan - Salbador Burgos RN - 03/25/2020 9:43 PM [employer] Problem: Discharge Planning Goal: Absence of venous thromboembolism Outcome: Progressing as expected Goal: Adequate for discharge Outcome: Progressing as expected Goal: Effective communication Outcome: Progressing as expected Problem: Falls, Risk of Goal: Absence of falls Outcome: Progressing as expected Problem: Skin integrity Impaired (Risk or Actual) Goal: Wound healing Outcome: Progressing as expected Goal: Prevention of new skin breakdown Outcome: Progressing as expected Problem: Glucose control Goal: Glucose level within specified parameters Outcome: Progressing as expected are Plan - Minnie Haynes RN - 03/25/2020 9:18 AM [employer] Problem: Discharge Planning Goal: Absence of venous thromboembolism Outcome: Progressing as expected Goal: Adequate for discharge Outcome: Progressing as expected Goal: Effective communication Outcome: Progressing as expected Problem: Pain Goal: Control of pain at or below patient's documented comfort goal Outcome: Progressing as expected Goal: Reduction in pain sensation Outcome: Progressing as expected Problem: Falls, Risk of Goal: Absence of falls Outcome: Progressing as expected Problem: Skin integrity Impaired (Risk or Actual) Goal: Wound healing Outcome: Progressing as expected Goal: Prevention of new skin breakdown Outcome: Progressing as expected Problem: Infection Risk Goal: Absence of infection Outcome: Progressing as expected Problem: Glucose control Goal: Glucose level within specified parameters Outcome: Progressing as expected are Plan - Haley Holt RN - 03/24/2020 11:19 PM CSTProgressing as expected. are Plan - Earline Dumont RN - 03/24/2020 11:12 AM [employer] Problem: Discharge Planning Goal: Absence of venous thromboembolism Outcome: Progressing as expected Goal: Adequate for discharge Outcome: Progressing as expected Goal: Effective communication Outcome: Progressing as expected Problem: Pain Goal: Control of pain at or below patient's documented comfort goal Outcome: Progressing as expected Goal: Reduction in pain sensation Outcome: Progressing as expected Problem: Falls, Risk of Goal: Absence of falls Outcome: Progressing as expected Problem: Skin integrity Impaired (Risk or Actual) Goal: Wound healing Outcome: Progressing as expected Goal: Prevention of new skin breakdown Outcome: Progressing as expected Problem: Infection Risk Goal: Absence of infection Outcome: Progressing as expected Problem: Glucose control Goal: Glucose level within specified parameters Outcome: Progressing as expected are Plan - Micaela Vazquez RN - 03/24/2020 12:24 AM [employer] Problem: Discharge Planning Goal: Absence of venous thromboembolism Outcome: Progressing as expected Goal: Adequate for discharge Outcome: Progressing as expected Goal: Effective communication Outcome: Progressing as expected Problem: Pain Goal: Control of pain at or below patient's documented comfort goal Outcome: Progressing as expected Goal: Reduction in pain sensation Outcome: Progressing as expected Problem: Falls, Risk of Goal: Absence of falls Outcome: Progressing as expected Problem: Skin integrity Impaired (Risk or Actual) Goal: Wound healing Outcome: Progressing as expected Goal: Prevention of new skin breakdown Outcome: Progressing as expected Problem: Infection Risk Goal: Absence of infection Outcome: Progressing as expected Problem: Glucose control Goal: Glucose level within specified parameters Outcome: Progressing as expected are Vera - Crutis Tamayo RN - 03/23/2020 8:11 AM [employer] Problem: Discharge Planning Goal: Absence of venous thromboembolism Outcome: Progressing as expected Goal: Adequate for discharge Outcome: Progressing as expected Goal: Effective communication Outcome: Progressing as expected Problem: Pain Goal: Control of pain at or below patient's documented comfort goal Outcome: Progressing as expected Goal: Reduction in pain sensation Outcome: Progressing as expected Problem: Falls, Risk of Goal: Absence of falls Outcome: Progressing as expected Problem: Skin integrity Impaired (Risk or Actual) Goal: Wound healing Outcome: Progressing as expected Goal: Prevention of new skin breakdown Outcome: Progressing as expected Problem: Infection Risk Goal: Absence of infection Outcome: Progressing as expected Problem: Glucose control Goal: Glucose level within specified parameters Outcome: Progressing as expected are Micaela Wheat RN - 03/22/2020 9:24 PM [employer] Problem: Discharge Planning Goal: Absence of venous thromboembolism Outcome: Progressing as expected Goal: Adequate for discharge Outcome: Progressing as expected Goal: Effective communication Outcome: Progressing as expected Problem: Pain Goal: Control of pain at or below patient's documented comfort goal Outcome: Progressing as expected Goal: Reduction in pain sensation Outcome: Progressing as expected Problem: Falls, Risk of Goal: Absence of falls Outcome: Progressing as expected Problem: Skin integrity Impaired (Risk or Actual) Goal: Wound healing Outcome: Progressing as expected Goal: Prevention of new skin breakdown Outcome: Progressing as expected Problem: Infection Risk Goal: Absence of infection Outcome: Progressing as expected Problem: Glucose control Goal: Glucose level within specified parameters Outcome: Progressing as expected are Vera - Curtis Tamayo RN - 03/22/2020 9:38 AM [employer] TE[employer]ER Problem: Discharge Planning Goal: Absence of venous thromboembolism Outcome: Progressing as expected Goal: Adequate for discharge Outcome: Progressing as expected Goal: Effective communication Outcome: Progressing as expected Problem: Pain Goal: Control of pain at or below patient's documented comfort goal Outcome: Progressing as expected Goal: Reduction in pain sensation Outcome: Progressing as expected Problem: Falls, Risk of Goal: Absence of falls Outcome: Progressing as expected Problem: Skin integrity Impaired (Risk or Actual) Goal: Wound healing Outcome: Progressing as expected Goal: Prevention of new skin breakdown Outcome: Progressing as expected Problem: Infection Risk Goal: Absence of infection Outcome: Progressing as expected Problem: Glucose control Goal: Glucose level within specified parameters Outcome: Progressing as expected are Vera - Micaela Vazquez RN - 03/21/2020 11:20 PM CDT Problem: Discharge Planning Goal: Absence of venous thromboembolism Outcome: Progressing as expected Goal: Adequate for discharge Outcome: Progressing as expected Goal: Effective communication Outcome: Progressing as expected Problem: Pain Goal: Control of pain at or below patient's documented comfort goal Outcome: Progressing as expected Goal: Reduction in pain sensation Outcome: Progressing as expected Problem: Falls, Risk of Goal: Absence of falls Outcome: Progressing as expected Problem: Skin integrity Impaired (Risk or Actual) Goal: Wound healing Outcome: Progressing as expected Goal: Prevention of new skin breakdown Outcome: Progressing as expected Problem: Infection Risk Goal: Absence of infection Outcome: Progressing as expected Problem: Glucose control Goal: Glucose level within specified parameters Outcome: Progressing as expected Igor Hernandez RN - 03/21/2020 9:08 AM CDT Problem: Discharge Planning Goal: Absence of venous thromboembolism Outcome: Progressing as expected Goal: Adequate for discharge Outcome: Progressing as expected Goal: Effective communication Outcome: Progressing as expected Problem: Pain Goal: Control of pain at or below patient's documented comfort goal Outcome: Progressing as expected Goal: Reduction in pain sensation Outcome: Progressing as expected Problem: Falls, Risk of Goal: Absence of falls Outcome: Progressing as expected Problem: Skin integrity Impaired (Risk or Actual) Goal: Wound healing Outcome: Progressing as expected Goal: Prevention of new skin breakdown Outcome: Progressing as expected Problem: Infection Risk Goal: Absence of infection Outcome: Progressing as expected Problem: Glucose control Goal: Glucose level within specified parameters Outcome: Progressing as expected Haven Templeton RN - 03/20/2020 7:06 PM CDT Problem: Discharge Planning Goal: Absence of venous thromboembolism Outcome: Progressing as expected Goal: Adequate for discharge Outcome: Progressing as expected Goal: Effective communication Outcome: Progressing as expected Problem: Pain Goal: Control of pain at or below patient's documented comfort goal Outcome: Progressing as expected Goal: Reduction in pain sensation Outcome: Progressing as expected Problem: Falls, Risk of Goal: Absence of falls Outcome: Progressing as expected Problem: Skin integrity Impaired (Risk or Actual) Goal: Wound healing Outcome: Progressing as expected Goal: Prevention of new skin breakdown Outcome: Progressing as expected Problem: Infection Risk Goal: Absence of infection Outcome: Progressing as expected Problem: Glucose control Goal: Glucose level within specified parameters Outcome: Progressing as expected Problem: Discharge Planning Goal: Absence of venous thromboembolism Outcome: Progressing as expected Problem: Discharge Planning Goal: Adequate for discharge Outcome: Progressing as expected Problem: Discharge Planning Goal: Effective communication Outcome: Progressing as expected Problem: Pain Goal: Control of pain at or below patient's documented comfort goal Outcome: Progressing as expected Problem: Pain Goal: Reduction in pain sensation Outcome: Progressing as expected Problem: Falls, Risk of Goal: Absence of falls Outcome: Progressing as expected Problem: Skin integrity Impaired (Risk or Actual) Goal: Wound healing Outcome: Progressing as expected Anesthesia Note - Carrillo Stephenson MD - 03/19/2020 2:54 PM CDT ANESTHESIA POST-OP SERVICE RESIDENT PROGRESS NOTE 03/19/2020 HPI: Ernie Rooney is a 59 year old male POD #1 s/p left below the knee amputation, doing well. Patient is satisfied with anesthetic and has no complaints. REVIEW OF SYSTEMS (bolded if positive, otherwise negative) HEENT: Corneal Abrasion, Nose Bleed, Throat Pain, Dental Damage Cardiovascular: Myocardial Infarction, Hypotension, Surgical bleed Resp: Shortness of breath, Hypoxia GI: Post-Op Nausea/Vomiting Neuro: Altered sensorium, Neuropathy, Stroke/TIA, Uncontrolled Pain, Urinary Retention, Intra-operative awareness Physical Exam: Vitals: 03/18/20 2334 03/19/20 0405 03/19/20 0718 03/19/20 1119 BP: 127/75 127/73 116/73 (!) 140/85 BP Location: Right arm Right arm Right arm Right arm Patient Position: Supine Supine Pulse: 78 73 73 86 Resp: 16 16 16 16 Temp: 36.4 C (97.5 F) 36.4 C (97.5 F) 36.3 C (97.3 F) 36.6 C (97.9 F) TempSrc: Oral Oral Oral Oral SpO2: 99% 99% 99% 97% Weight: Height: Body mass index is 27.41 kg/m. GENERAL: Ernie Rooney is well developed, well nourished, alert and oriented in no acute distress HEENT: normocephalic atraumatic and moist mucous membranes, anicteric sclera bilaterally LUNGS: normal excursion, no respiratory distress, unlabored breathing CARDIOVASCULAR: normal pulse rate, warm extremities, no gross edema noted Plan: 1. Patient doing well 2. No further follow-up required Carrillo Lomeli MD 03/19/2020 2:55 PM are Plan - Igor Hung RN - 03/19/2020 9:28 AM CDT Problem: Discharge Planning Goal: Absence of venous thromboembolism Outcome: Progressing as expected Goal: Adequate for discharge Outcome: Progressing as expected Goal: Effective communication Outcome: Progressing as expected Problem: Pain Goal: Control of pain at or below patient's documented comfort goal Outcome: Progressing as expected Goal: Reduction in pain sensation Outcome: Progressing as expected Problem: Falls, Risk of Goal: Absence of falls Outcome: Progressing as expected Problem: Skin integrity Impaired (Risk or Actual) Goal: Wound healing Outcome: Progressing as expected Goal: Prevention of new skin breakdown Outcome: Progressing as expected Problem: Infection Risk Goal: Absence of infection Outcome: Progressing as expected Problem: Glucose control Goal: Glucose level within specified parameters Outcome: Progressing as expected are Plan - Judy Barber RN - 03/19/2020 1:03 AM CDTPatient s/p BKA. perative Note - Brigitte Christine MD - 03/18/2020 2:29 PM CDTCOMPLETE OPERATIVE NOTE Date of Surgery: 03/18/2020 Surgeon(s) and Role: Tato Esquivel MD - Primary Brigitte Christine MD - Resident - Assisting Suzan Naranjo DO - Resident - Assisting Pre-Op Diagnosis: Left foot infection Post-Op Diagnosis Codes: Left foot infection Procedures: BELOW THE KNEE AMPUTATION (Left) Indications The patient is a 59 year old male with peripheral vascular disease and non resolving left calcanealosteomyelitis not responding to maximal non operative treatment resulted in sepsis. The risks of surgical intervention were discussed with the patient and he/she elected to undergo surgical intervention. Description of Procedure Time-outs were performed using both preinduction and pre-incision safety checklist to verify correctpatient, procedure, site, and additional critical information prior to beginning the procedure. The procedure was performed under geneal anesthesia. The patient was placed supine. The Left lower extremity was prepped and draped in the usual sterile fashion. An occlusive dressing was applied to the foot up to the level of the ankle. Anterior and posterior skin incisions were outlined with a marking pen. The anterior skin incision was made 10 cm below the tibial tuberosity and extended medially and laterally toward the edges of the gastrocnemius muscle. The skin incision was then extended distally oneither side parallel to the tibia for 12 cm, creating a posterior flap. The skin and subcutaneous tissues were incised down to the fascia. The greater and short saphenous veins on the medial and posterior aspects of the leg, respectively, were ligated and divided. The fascia and the muscles were then d ivided with the electrocautery at the same level of the anterior skin incision. The muscles in the anterior and lateral compartment were divided, exposing the anterior tibial vessels, which were ligated and divided. The interosseous membrane was then incised. The tibial periosteum was incised circumferentially with the electrocautery at the same level of the skin and muscle division. Using a periosteal elevator, the tibial periosteum was stripped proximally for 2 cm. The tibia was then transected with a Gigli saw 2 cm proximal to the skin incision with an anterior bevel. The fibula was then exposed, dissected circumferentially, and transected with a bone cutter 2 cm proximal to the tibial division. The amputation was then completed with an amputation knife, transecting the soleus muscle obliquelyand the gastrocnemius muscle at the same level as the posterior flap. Bleeding soleal veins and posterior tibial and peroneal vessels were clamped and oversewn with 2-0 silk sutures. Sharp bony edges were then filed, eliminating any bony prominences over the anterior aspect of the tibia. The fascia ofthe anterior and posterior muscle flaps were approximated with interrupted 2-0 vicryl sutures. The skin was approximated with interrupted 2-0 nylon sutures in vertical mattress fashion and dressed with4 4 gauze, Kerlix, and an April bandage. A debriefing checklist was completed to share information critical to postoperative care of the patient. The patient tolerated the procedure well and was takento the postanesthesia care unit in stable condition. Associated attestation - Tato Esquivel MD - 03/21/2020 2:18 PM CDTI was present and scrubbed for the procedure. I agree with the note by Dr Stevenson. JPWBrief Op Note - Brigitte Christine MD - 03/18/2020 2:29 PM CDT BRIEF OPERATIVE NOTE Date of Surgery: 03/18/2020 Surgeon(s) and Role: * Tato Esquivel MD - Primary * Brigitte Christine MD - Resident - Assisting * Suzan Naranjo DO - Resident - Assisting Pre-Op Diagnosis: Left foot pain [M79.672] Post-Op Diagnosis Codes: * Left foot pain [M79.672] Procedures: Procedure(s) (LRB): BELOW THE KNEE AMPUTATION (Left) CPT: UTMBCODINGHE, Any Complications Encounters: None Estimated Blood Loss: 100 mL Specimens Removed: ID Type Source Tests Collected by Time Destination 1 : left leg BKA Tissue LEG, LEFT, BELOW KNEE SURGICAL PATHOLOGY EXAM Tato Esquivel MD 03/18/2020 1516 * No implants in log * Patient's Condition: Good Findings: Osteomyelitis of left calcaneus Left leg ischemia Any other important information: None Please see dictated operative report for additional detail. nesthesia Note - Cade Pereyra MD - 03/18/2020 1:56 PM CDTAcute Pain Services Pre/Post-op Block Request 03/18/2020, 1:56 PM After discussion with Dr. Esquivel on 03/18/2020, a request has been made to evaluate for regional anesthesia for post-operative pain. Consent obtained after discussion of the risks/benefits/alternatives of block with all parties involved. The patient agrees to proceed with block. This note serves as documentation of that request. Please see EPIC for additional block details. Cade Pereyra MD, 1:56 PM Associated attestation - Tato Esquivel MD - 03/18/2020 4:34 PM CDTOK JPWCare Plan - Haley Holt RN - 03/18/2020 12:43 AM CDTProgressing as expected. are Plan - Yelena Mauricio RN - 03/17/2020 8:31 AM CDT Problem: Discharge Planning Goal: Absence of venous thromboembolism Outcome: Progressing as expected Goal: Adequate for discharge Outcome: Progressing as expected Goal: Effective communication Outcome: Progressing as expected Problem: Pain Goal: Control of pain at or below patient's documented comfort goal Outcome: Progressing as expected Goal: Reduction in pain sensation Outcome: Progressing as expected Problem: Falls, Risk of Goal: Absence of falls Outcome: Progressing as expected Problem: Skin integrity Impaired (Risk or Actual) Goal: Wound healing Outcome: Progressing as expected Goal: Prevention of new skin breakdown Outcome: Progressing as expected Problem: Infection Risk Goal: Absence of infection Outcome: Progressing as expected Problem: Glucose control Goal: Glucose level within specified parameters Outcome: Progressing as expected ИРИНАTCKathy Bojorquez RN - 03/17/2020 1:17 AM CDT Problem: Discharge Planning Goal: Absence of venous thromboembolism Outcome: Progressing as expected Goal: Adequate for discharge Outcome: Progressing as expected Goal: Effective communication Outcome: Progressing as expected Problem: Pain Goal: Control of pain at or below patient's documented comfort goal Outcome: Progressing as expected Goal: Reduction in pain sensation Outcome: Progressing as expected Problem: Falls, Risk of Goal: Absence of falls Outcome: Progressing as expected Problem: Skin integrity Impaired (Risk or Actual) Goal: Wound healing Outcome: Progressing as expected Goal: Prevention of new skin breakdown Outcome: Progressing as expected Problem: Infection Risk Goal: Absence of infection Outcome: Progressing as expected Problem: Glucose control Goal: Glucose level within specified parameters Outcome: Progressing as expected Ricardo Rinaldi RN - 03/16/2020 6:29 PM CDT Problem: Discharge Planning Goal: Absence of venous thromboembolism Outcome: Progressing as expected Goal: Adequate for discharge Outcome: Progressing as expected Goal: Effective communication Outcome: Progressing as expected Problem: Pain Goal: Control of pain at or below patient's documented comfort goal Outcome: Progressing as expected Goal: Reduction in pain sensation Outcome: Progressing as expected Problem: Falls, Risk of Goal: Absence of falls Outcome: Progressing as expected Problem: Skin integrity Impaired (Risk or Actual) Goal: Wound healing Outcome: Progressing as expected Goal: Prevention of new skin breakdown Outcome: Progressing as expected Problem: Infection Risk Goal: Absence of infection Outcome: Not progressing as expected Problem: Glucose control Goal: Glucose level within specified parameters Outcome: Not progressing as expected are Plan - Kathy Chavarria RN - 03/16/2020 5:49 AM CDT Problem: Discharge Planning Goal: Absence of venous thromboembolism Outcome: Progressing as expected Goal: Adequate for discharge Outcome: Progressing as expected Goal: Effective communication Outcome: Progressing as expected Problem: Pain Goal: Control of pain at or below patient's documented comfort goal Outcome: Progressing as expected Goal: Reduction in pain sensation Outcome: Progressing as expected Problem: Falls, Risk of Goal: Absence of falls Outcome: Progressing as expected Problem: Skin integrity Impaired (Risk or Actual) Goal: Wound healing Outcome: Progressing as expected Goal: Prevention of new skin breakdown Outcome: Progressing as expected Problem: Infection Risk Goal: Absence of infection Outcome: Progressing as expected Problem: Glucose control Goal: Glucose level within specified parameters Outcome: Progressing as expected D Nurse Note - Jameel Dumont RN - 03/16/2020 3:26 AM CDTPatient admitted to 2224 for diagnosis of osteomylitis Patient agrees to admission, discussed plan of care with patient Patient is awake, alert, oriented, resp reg unlabored, color appropriate for race, PIV intact No adverse reaction to medications administered while in ED Belongings with patient to unit Report to Zuleima SCRUGGS documented in this encounter Plan of Treatment Name Type Priority Associated Order Schedule Diagnoses EKG-12 LEAD ROUTINE HEART STATION Routine ONCE fo r 1 Occurrences sta rting 03/16/2020 unti l 03/16/2020 FECAL LEUKOCYTES LAB Routine ONCE for 1 Occurrences sta rting 03/16/2020 unti l 03/16/2020 FECES CULTURE LAB Routine ONCE for 1 Occurrences sta rting 03/16/2020 unti l 03/16/2020 CLOSTRIDIUM DIFFICILE LAB Routine ONCE f or 1 TOXIN Occurrences sta rting 03/16/2020 unti l 03/16/2020 aPTT (for use with LAB Routine FOR FOLLO W-UP TESTING Heparin Drip) until disconti nued starting 2019, 1 completed Transfusion Reaction LAB Routine FOR FOL LOW-UP TESTING Investigation until disconti nued starting 2019 Urinalysis (Spun) LAB Routine FOR FOLLOW -UP TESTING until discontin ued starting 2019 BASIC METABOLIC PANEL LAB Routine EVERY MORNING AT 0400 (NA, K, CL, CO2, for 1 Weeks starting GLUCOSE, BUN, 03/18/2020 unt il CREATININE, CA) 03/24/2020, 6 completed MAGNESIUM LAB Routine EVERY MORNING A T 0400 for 1 Weeks sta rting 03/18/2020 unti l 03/24/2020, 6 completed PHOSPHORUS LAB Routine EVERY MORNING A T 0400 for 1 Weeks sta rting 03/18/2020 unti l 03/24/2020, 6 completed Health Maintenance Due Date Last Done Comments [...] 02/04/2020, 08/06/2019, Additional history exists CREATININE (SERUM) 03/23/2021 03/23/2020, 03/22/2020, 03/21/2020, Additional history exists HEPATITIS C (HCV) SCREEN Completed 08/29/2018 documented as of this encounter Implants Implanted Type Area Sweatband Flanger Device 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 PACEMAKER [id number] / [employer] [id number] / Pacemaker Metal Bar-05/22/1994 Back Implanted: 05/22/1994 (Quantity not on file) Metal Bar-05/22/2002 Arm Implanted: 05/22/2002 (Quantity not on file) documented as of this encounter Procedures Procedure Name Priority Date/Time Associated Comments Diagnosis POCT GLUCOSE Routine 03/26/2020 Results for (AUTOMATED) 4:37 PM [employer] this procedure are in the results section. POCT GLUCOSE Routine 03/26/2020 Results for (AUTOMATED) 12:58 PM [employer] SCI[employer] TEACHER this procedure are in the results section. POCT GLUCOSE Routine 03/26/2020 Results for (AUTOMATED) 8:07 AM [employer] SCIENCES TEACHER this procedure are in the results section. POCT GLUCOSE Routine 03/26/2020 Results for (AUTOMATED) 3:52 AM [employer] SCIENCES TEACHER this procedure are in the results section. POCT GLUCOSE Routine 03/26/2020 Results for (AUTOMATED) 12:05 AM [employer] SCIENCES TEACHER this procedure are in the results section. POCT GLUCOSE Routine 03/25/2020 Results for (AUTOMATED) 11:52 PM [employer] SCIENCES TEACHER this procedure are in the results section. POCT GLUCOSE Routine 03/25/2020 Results for (AUTOMATED) 8:28 PM [employer] SCIENC[employer] TEACHER this procedure are in the results section. POCT GLUCOSE Routine 03/25/2020 Results for (AUTOMATED) 5:22 PM [employer] SCIENC[employer] TEACHER this procedure are in the results section. POCT GLUCOSE Routine 03/25/2020 Results for (AUTOMATED) 3:08 PM [employer] SCIENCES TEACHER this procedure are in the results section. POCT GLUCOSE Routine 03/25/2020 Results for (AUTOMATED) 1:11 PM [employer] SCI[employer] TEACHER this procedure are in the results section. POCT GLUCOSE Routine 03/25/2020 Results for (AUTOMATED) 11:27 AM [employer] SCIENCES TEACHER this procedure are in the results section. POCT GLUCOSE Routine 03/25/2020 Results for (AUTOMATED) 7:18 AM [employer] SCIENCES TEACHER this procedure are in the results section. POCT GLUCOSE Routine 03/25/2020 Results for (AUTOMATED) 4:08 AM LIFE SCIENCES TEACHER this procedure are in the results section. POCT GLUCOSE Routine 03/25/2020 Results for (AUTOMATED) 12:36 AM [employer] SCIENCES TEACHER this procedure are in the results section. POCT GLUCOSE Routine 03/24/2020 Results for (AUTOMATED) 8:00 PM [employer] SCIENCES TEACHER this procedure are in the results section. POCT GLUCOSE Routine 03/24/2020 Results for (AUTOMATED) 4:43 PM [employer] SCIENCES TEACHER this procedure are in the results section. POCT GLUCOSE Routine 03/24/2020 Results for (AUTOMATED) 11:59 AM LIFE SCIENCES TEACHER this procedure are in the results section. POCT GLUCOSE Routine 03/24/2020 Results for (AUTOMATED) 7:26 AM LIFE SCIENCES TEACHER this procedure are in the results section. POCT GLUCOSE Routine 03/24/2020 Results for (AUTOMATED) 4:31 AM LIFE SCIENCES TEACHER this procedure are in the results section. CBC WITH DIFF Routine 03/24/2020 Results for 3:58 AM LIFE SCIENCES TEACHER this procedure are in the results section. POCT GLUCOSE Routine 03/23/2020 Results for (AUTOMATED) 11:59 PM [employer] SCIENCES TEACHER this procedure are in the results section. POCT GLUCOSE Routine 03/23/2020 Results for (AUTOMATED) 7:34 PM [employer] SCIENCES TEACHER this procedure are in the results section. POCT GLUCOSE Routine 03/23/2020 Results for (AUTOMATED) 5:32 PM LIFE SCIENCES TEACHER this procedure are in the results section. POCT GLUCOSE Routine 03/23/2020 Results for (AUTOMATED) 3:52 PM LIFE SCIENCES TEACHER this procedure are in the results section. POCT GLUCOSE Routine 03/23/2020 Results for (AUTOMATED) 11:58 AM LIFE SCIENCES TEACHER this procedure are in the results section. POCT GLUCOSE Routine 03/23/2020 Results for (AUTOMATED) 7:55 AM [employer] SCIENCES TEACHER this procedure are in the results section. CBC WITH DIFF Routine 03/23/2020 Results for 5:28 AM LIFE SCIENCES TEACHER this procedure are in the results section. BASIC METABOLIC PANEL Routine 03/23/2020 Result s for (NA, K, CL, CO2, 5:28 AM LIFE SCIENCES TEACHER this proced ure GLUCOSE, BUN, are in the CREATININE, CA) results section. MAGNESIUM Routine 03/23/2020 Results for 5:28 AM LIFE SCIENCES TEACHER this procedure are in the results section. PHOSPHORUS Routine 03/23/2020 Results for 5:28 AM LIFE SCIENCES TEACHER this procedure are in the results section. POCT GLUCOSE Routine 03/23/2020 Results for (AUTOMATED) 3:25 AM [employer] SCIENCES TEACHER this procedure are in the results section. POCT GLUCOSE Routine 03/22/2020 Results for (AUTOMATED) 11:21 PM [employer] SCIENCES TEACHER this procedure are in the results section. POCT GLUCOSE Routine 03/22/2020 Results for (AUTOMATED) 7:17 PM [employer] SCIENCES TEACHER this procedure are in the results section. POCT GLUCOSE Routine 03/22/2020 Results for (AUTOMATED) 5:04 PM [employer] SCIENCES TEACHER this procedure are in the results section. POCT GLUCOSE Routine 03/22/2020 Results for (AUTOMATED) 12:59 PM LIFE SCIENCES TEACHER this procedure are in the results section. POCT GLUCOSE Routine 03/22/2020 Results for (AUTOMATED) 9:35 AM LIFE SCIENCES TEACHER this procedure are in the results section. POCT GLUCOSE Routine 03/22/2020 Results for (AUTOMATED) 7:30 AM LIFE SCIENCES TEACHER this procedure are in the results section. BASIC METABOLIC PANEL Routine 03/22/2020 Result s for (NA, K, CL, CO2, 5:09 AM LIFE SCIENCES TEACHER this proced ure GLUCOSE, BUN, are in the CREATININE, CA) results section. MAGNESIUM Routine 03/22/2020 Results for 5:09 AM LIFE SCIENCES TEACHER this procedure are in the results section. PHOSPHORUS Routine 03/22/2020 Results for 5:09 AM LIFE SCIENCES TEACHER this procedure are in the results section. CBC WITH DIFF Routine 03/22/2020 Results for 3:42 AM LIFE SCIENCES TEACHER this procedure are in the results section. POCT GLUCOSE Routine 03/22/2020 Results for (AUTOMATED) 3:22 AM LIFE SCIENCES TEACHER this procedure are in the results section. POCT GLUCOSE Routine 03/21/2020 Results for (AUTOMATED) 11:21 PM CDT this procedure are in the results section. POCT GLUCOSE Routine 03/21/2020 Results for (AUTOMATED) 7:24 PM CDT this procedure are in the results section. POCT GLUCOSE Routine 03/21/2020 Results for (AUTOMATED) 6:02 PM CDT this procedure are in the results section. POCT GLUCOSE Routine 03/21/2020 Results for (AUTOMATED) 1:42 PM CDT this procedure are in the results section. POCT GLUCOSE Routine 03/21/2020 Results for (AUTOMATED) 8:38 AM CDT this procedure are in the results section. VANCOMYCIN TROUGH Routine 03/21/2020 Results fo r 4:17 AM CDT this procedure are in the results section. CBC WITH DIFF Routine 03/21/2020 Results for 3:35 AM CDT this procedure are in the results section. BASIC METABOLIC PANEL Routine 03/21/2020 Result s for (NA, K, CL, CO2, 3:35 AM CDT this proced ure GLUCOSE, BUN, are in the CREATININE, CA) results section. MAGNESIUM Routine 03/21/2020 Results for 3:35 AM CDT this procedure are in the results section. PHOSPHORUS Routine 03/21/2020 Results for 3:35 AM CDT this procedure are in the results section. POCT GLUCOSE Routine 03/21/2020 Results for (AUTOMATED) 3:30 AM CDT this procedure are in the results section. POCT GLUCOSE Routine 03/21/2020 Results for (AUTOMATED) 12:19 AM CDT this procedure are in the results section. POCT GLUCOSE Routine 03/20/2020 Results for (AUTOMATED) 7:49 PM CDT this procedure are in the results section. CBC WITH DIFF Routine 03/20/2020 Results for 5:51 PM CDT this procedure are in the results section. POCT GLUCOSE Routine 03/20/2020 Results for (AUTOMATED) 4:08 PM CDT this procedure are in the results section. POCT GLUCOSE Routine 03/20/2020 Results for (AUTOMATED) 11:12 AM CDT this procedure are in the results section. POCT GLUCOSE Routine 03/20/2020 Results for (AUTOMATED) 7:20 AM CDT this procedure are in the results section. CBC WITH DIFF Routine 03/20/2020 Results for 3:44 AM CDT this procedure are in the results section. BASIC METABOLIC PANEL Routine 03/20/2020 Result s for (NA, K, CL, CO2, 3:44 AM CDT this proced ure GLUCOSE, BUN, are in the CREATININE, CA) results section. MAGNESIUM Routine 03/20/2020 Results for 3:44 AM CDT this procedure are in the results section. PHOSPHORUS Routine 03/20/2020 Results for 3:44 AM CDT this procedure are in the results section. POCT GLUCOSE Routine 03/20/2020 Results for (AUTOMATED) 3:39 AM CDT this procedure are in the results section. POCT GLUCOSE Routine 03/20/2020 Results for (AUTOMATED) 12:13 AM CDT this procedure are in the results section. POCT GLUCOSE Routine 03/19/2020 Results for (AUTOMATED) 7:38 PM CDT this procedure are in the results section. POCT GLUCOSE Routine 03/19/2020 Results for (AUTOMATED) 4:53 PM CDT this procedure are in the results section. BLOOD CULTURE SCREEN Routine 03/19/2020 Results for 1:40 PM CDT this procedure are in the results section. BLOOD CULTURE SCREEN Routine 03/19/2020 Results for 1:40 PM CDT this procedure are in the results section. POCT GLUCOSE Routine 03/19/2020 Results for (AUTOMATED) 11:21 AM CDT this procedure are in the results section. POCT GLUCOSE Routine 03/19/2020 Results for (AUTOMATED) 7:20 AM CDT this procedure are in the results section. CBC WITH DIFF Routine 03/19/2020 Results for 4:13 AM CDT this procedure are in the results section. BASIC METABOLIC PANEL Routine 03/19/2020 Result s for (NA, K, CL, CO2, 4:13 AM CDT this proced ure GLUCOSE, BUN, are in the CREATININE, CA) results section. MAGNESIUM Routine 03/19/2020 Results for 4:13 AM CDT this procedure are in the results section. PHOSPHORUS Routine 03/19/2020 Results for 4:13 AM CDT this procedure are in the results section. POCT GLUCOSE Routine 03/19/2020 Results for (AUTOMATED) 4:03 AM CDT this procedure are in the results section. POCT GLUCOSE Routine 03/18/2020 Results for (AUTOMATED) 11:35 PM CDT this procedure are in the results section. POCT GLUCOSE Routine 03/18/2020 Results for (AUTOMATED) 9:09 PM CDT this procedure are in the results section. POCT GLUCOSE Routine 03/18/2020 Results for (AUTOMATED) 6:00 PM CDT this procedure are in the results section. CBC WITHOUT DIFF Routine 03/18/2020 Results for 4:56 PM CDT this procedure are in the results section. BASIC METABOLIC PANEL Routine 03/18/2020 Result s for (NA, K, CL, CO2, 4:55 PM CDT this proced ure GLUCOSE, BUN, are in the CREATININE, CA) results section. MAGNESIUM Routine 03/18/2020 Results for 4:55 PM CDT this procedure are in the results section. PHOSPHORUS Routine 03/18/2020 Results for 4:55 PM CDT this procedure are in the results section. TRANSFUSE PACKED RBC Routine 03/18/2020 3:31 PM CDT TRANSFUSE PACKED RBC Routine 03/18/2020 3:31 PM CDT SURGICAL PATHOLOGY STAT 03/18/2020 Results f or EXAM 3:16 PM CDT this procedure are in the results section. PREPARE PACKED RBC Routine 03/18/2020 Results f or 2:52 PM CDT this procedure are in the results section. BELOW THE KNEE Level 4 03/18/2020 Left foot pain AMPUTATION (within 0-5 1:26 PM CDT days) POCT GLUCOSE Routine 03/18/2020 Results for (AUTOMATED) 11:49 AM CDT this procedure are in the results section. CBC WITH DIFF Routine 03/18/2020 Results for 9:30 AM CDT this procedure are in the results section. BASIC METABOLIC PANEL Routine 03/18/2020 Result s for (NA, K, CL, CO2, 9:30 AM CDT this proced ure GLUCOSE, BUN, are in the CREATININE, CA) results section. MAGNESIUM Routine 03/18/2020 Results for 9:30 AM CDT this procedure are in the results section. PHOSPHORUS Routine 03/18/2020 Results for 9:30 AM CDT this procedure are in the results section. POCT GLUCOSE Routine 03/18/2020 Results for (AUTOMATED) 7:48 AM CDT this procedure are in the results section. POCT GLUCOSE Routine 03/18/2020 Results for (AUTOMATED) 3:46 AM CDT this procedure are in the results section. POCT GLUCOSE Routine 03/17/2020 Results for (AUTOMATED) 11:55 PM CDT this procedure are in the results section. HB ABO GROUPING TENZIN 03/17/2020 Results for 10:20 PM CDT this procedure are in the results section. POCT GLUCOSE Routine 03/17/2020 Results for (AUTOMATED) 10:19 PM CDT this procedure are in the results section. POCT GLUCOSE Routine 03/17/2020 Results for (AUTOMATED) 8:38 PM CDT this procedure are in the results section. POCT GLUCOSE Routine 03/17/2020 Results for (AUTOMATED) 12:00 PM CDT this procedure are in the results section. POCT GLUCOSE Routine 03/17/2020 Results for (AUTOMATED) 7:53 AM CDT this procedure are in the results section. ACTIVATED PARTIAL STAT 03/17/2020 Results fo r THRMPLAS AMARILIS 4:06 AM CDT this procedure are in the results section. CBC WITH DIFF Routine 03/17/2020 Results for 4:02 AM CDT this procedure are in the results section. VANCOMYCIN TROUGH Routine 03/17/2020 Results fo r 4:02 AM CDT this procedure are in the results section. BASIC METABOLIC PANEL Routine 03/17/2020 Result s for (NA, K, CL, CO2, 4:02 AM CDT this proced ure GLUCOSE, BUN, are in the CREATININE, CA) results section. POCT GLUCOSE Routine 03/17/2020 Results for (AUTOMATED) 3:50 AM CDT this procedure are in the results section. POCT GLUCOSE Routine 03/16/2020 Results for (AUTOMATED) 11:55 PM CDT this procedure are in the results section. ACTIVATED PARTIAL STAT 03/16/2020 Results fo r THRMPLAS AMARILIS 11:02 PM CDT this procedure are in the results section. POCT GLUCOSE Routine 03/16/2020 Results for (AUTOMATED) 9:09 PM CDT this procedure are in the results section. HB ABO GROUPING Routine 03/16/2020 Results for 6:00 PM CDT this procedure are in the results section. POCT GLUCOSE Routine 03/16/2020 Results for (AUTOMATED) 4:50 PM CDT this procedure are in the results section. ACTIVATED PARTIAL Routine 03/16/2020 Results fo r THRMPLAS AMARILIS 4:26 PM CDT this procedure are in the results section. BASIC METABOLIC PANEL Routine 03/16/2020 Result s for (NA, K, CL, CO2, 4:26 PM CDT this proced ure GLUCOSE, BUN, are in the CREATININE, CA) results section. US RETROPERITONEAL Routine 03/16/2020 KORY (acute kidney Resu lts for COMPLETE 12:06 PM CDT injury) this procedure are in the results section. POCT GLUCOSE Routine 03/16/2020 Results for (AUTOMATED) 11:21 AM CDT this procedure are in the results section. URINALYSIS Routine 03/16/2020 Results for 10:50 AM CDT this procedure are in the results section. DUPLEX SCAN GRAFT Routine 03/16/2020 LOWER 9:33 AM CDT EXTREMITY-BILATERAL BY VASCULAR LAB ACTIVATED PARTIAL Routine 03/16/2020 Results fo r THRMPLAS AMARILIS 9:20 AM CDT this procedure are in the results section. PROTHROMBIN TIME / INR STAT 03/16/2020 Resul ts for 9:20 AM CDT this procedure are in the results section. BASIC METABOLIC PANEL STAT 03/16/2020 Result s for (NA, K, CL, CO2, 9:20 AM CDT this proced ure GLUCOSE, BUN, are in the CREATININE, CA) results section. MAGNESIUM Add-on 03/16/2020 Results for 9:20 AM CDT this procedure are in the results section. PHOSPHORUS Add-on 03/16/2020 Results for 9:20 AM CDT this procedure are in the results section. POCT GLUCOSE Routine 03/16/2020 Results for (AUTOMATED) 7:53 AM CDT this procedure are in the results section. EVIE MULTI LEVEL BY Routine 03/16/2020 VASCULAR LAB 7:37 AM CDT EKG-12 LEAD Routine 03/16/2020 5:37 AM CDT WOUND CULTURE Routine 03/16/2020 Results for 4:48 AM CDT this procedure are in the results section. WOUND/ASPIRATE OR Routine 03/16/2020 Results fo r ABSCESS CULTURE 4:48 AM CDT this procedu re are in the results section. XR CHEST 1 VW TENZIN 03/16/2020 Chest pain in adult Results for 3:48 AM CDT this procedure are in the results section. LACTIC ACID WHOLE STAT 03/16/2020 Left foot pain Results for BLOOD 3:24 AM CDT this procedure are in the results section. CT FOOT LEFT WO TENZIN 03/16/2020 Left foot pain Results for CONTRAST 3:02 AM CDT Osteomyelitis of this proced ure left foot, are in the unspecified type results Gas gangrene section. LAB ONLY COVID Routine 03/16/2020 Osteomyelitis of Results f or INTERPRETATION 2:33 AM CDT left foot, this procedur e unspecified type are in the results section. COVID-19 (ID NOW RAPID Routine 03/16/2020 Osteomyelitis of R esults for TESTING) 2:33 AM CDT left foot, this procedure unspecified type are in the results section. LOW-DENSITY Routine 03/16/2020 Results for LIPOPROTEIN, DIRECT 12:57 AM CDT this pro cedure are in the results section. GRAM POSITIVE BLOOD Routine 03/16/2020 Left foot pain Result s for PATHOGENS DNA 12:57 AM CDT this procedure PROBE-ANAEROBIC are in the results section. GRAM NEGATIVE BLOOD Routine 03/16/2020 Left foot pain Result s for PATHOGENS DNA 12:57 AM CDT this procedure PROBE-ANAEROBIC are in the results section. BLOOD CULTURE WORKUP STAT 03/16/2020 Left foot pain Resul ts for 12:57 AM CDT this procedure are in the results section. BLOOD CULTURE WORKUP STAT 03/16/2020 Left foot pain Resul ts for 12:57 AM CDT this procedure are in the results section. N-TERMINAL PRO-BNP Add-on 03/16/2020 Results f or 12:57 AM CDT this procedure are in the results section. GLYCOSYLATED Add-on 03/16/2020 Results for HEMOGLOBIN (A1C) 12:57 AM CDT this proced ure are in the results section. CBC WITH DIFF STAT 03/16/2020 Left foot pain Results for 12:57 AM CDT this procedure are in the results section. SEDIMENTATION RATE Add-on 03/16/2020 Results f or 12:57 AM CDT this procedure are in the results section. LIPID PANEL Add-on 03/16/2020 Results for (20743)(TOTAL 12:57 AM CDT this procedure CHOLESTEROL, are in the TRIGLYCERIDES, HDL) results section. COMP. METABOLIC PANEL STAT 03/16/2020 Left foot pain Resu lts for (76047) 12:57 AM CDT this procedure are in the results section. THYROID STIMULATING Add-on 03/16/2020 Results for HORMONE 12:57 AM CDT this procedure are in the results section. TROPONIN I Add-on 03/16/2020 Results for 12:57 AM CDT this procedure are in the results section. IRON Add-on 03/16/2020 Results for 12:57 AM CDT this procedure are in the results section. FERRITIN SERUM Add-on 03/16/2020 Results for 12:57 AM CDT this procedure are in the results section. URIC ACID Add-on 03/16/2020 Results for 12:57 AM CDT this procedure are in the results section. BLOOD CULTURE SCREEN STAT 03/16/2020 Left foot pain Resul ts for 12:57 AM CDT this procedure are in the results section. BLOOD CULTURE SCREEN STAT 03/16/2020 Left foot pain Resul ts for 12:57 AM CDT this procedure are in the results section. LACTIC ACID WHOLE STAT 03/16/2020 Left foot pain Results for BLOOD 12:56 AM CDT this procedure are in the results section. XR FOOT <3 VW LEFT STAT 03/16/2020 Left foot pain Results for 12:28 AM CDT this procedure are in the results section. CONSENT/REFUSAL FOR Routine 03/15/2020 DIAGNOSIS AND 11:40 PM CDT TREATMENT HOSPITAL ADMISSION Routine 03/15/2020 12:01 AM CDT documented in this encounter Results POCT GLUCOSE (AUTOMATED) (03/26/2020 4:37 PM [employer] SCIENCES TEACHER) Pathologist Sig nature POCT GLU 245 (H) 70 - 110 mg/dL [facility] Specimen Blood Performing Organization Address City/State/Zipcode Phone Number [facility] CLIA: [id number] [place] [address] [place] [address] POCT GLUCOSE (AUTOMATED) (03/26/2020 12:58 PM LIFE SCIENCES TEACHER) Pathologist Sig nature POCT GLU 158 (H) 70 - 110 mg/dL [facility] Specimen Blood Performing Organization Address [facility] Phone Number [facility] CLIA: [id number] [place] [address] [phone] [address] POCT GLUCOSE (AUTOMATED) (03/26/2020 8:07 AM LIFE SCIENCES TEACHER) Pathologist Sig nature POCT GLU 125 (H) 70 - 110 mg/dL [facility] Specimen Blood Performing Organization Address [facility] Phone Number [facility] CLIA: [id number] [place] [address] [phone] [address] POCT GLUCOSE (AUTOMATED) (03/26/2020 3:52 AM LIFE SCIENCES TEACHER) Pathologist Sig nature POCT GLU 160 (H) 70 - 110 mg/dL [facility] Specimen Blood Performing Organization Address [facility] Phone Number [facility] CLIA: [id number] [place] [address] [phone] [address] POCT GLUCOSE (AUTOMATED) (03/26/2020 12:05 AM LIFE SCIENCES TEACHER) Pathologist Sig nature POCT GLU 188 (H) 70 - 110 mg/dL [facility] Specimen Blood Performing Organization Address [facility] Phone Number [facility] CLIA: [id number] [place] [address] [phone] [address] POCT GLUCOSE (AUTOMATED) (03/25/2020 11:52 PM LIFE SCIENCES TEACHER) Pathologist Sig nature POCT GLU 191 (H) 70 - 110 mg/dL [facility] Specimen Blood Performing Organization Address [facility] Phone Number [facility] CLIA: [id number] [place] [address] [phone] [address] POCT GLUCOSE (AUTOMATED) (03/25/2020 8:28 PM LIFE SCIENCES TEACHER) Pathologist Sig nature POCT GLU 229 (H) 70 - 110 mg/dL [facility] Specimen Blood Performing Organization Address [facility]/Zipcode Phone Number [facility] CLIA: [id number] [place], [place] [address] [address] POCT GLUCOSE (AUTOMATED) (03/25/2020 5:22 PM LIFE SCIENCES TEACHER) Pathologist Sig nature POCT GLU 184 (H) 70 - 110 mg/dL [facility] Specimen Blood Performing Organization Address City/[facility] Phone Number [facility] CLIA: [id number] [place] [address] [phone] [address] POCT GLUCOSE (AUTOMATED) (03/25/2020 3:08 PM LIFE SCIENCES TEACHER) Pathologist Sig nature POCT GLU 217 (H) 70 - 110 mg/dL [facility] Specimen Blood Performing Organization Address [facility] Phone Number [facility] CLIA: [id number] [place], [place] [phone] POCT GLUCOSE (AUTOMATED) (03/25/2020 1:11 PM LIFE SCIENCES TEACHER) Pathologist Sig nature POCT GLU 223 (H) 70 - 110 mg/dL [facility] Specimen Blood Performing Organization Address [facility] Phone Number [facility] CLIA: [id number] [place], [place] [phone] POCT GLUCOSE (AUTOMATED) (03/25/2020 11:27 AM LIFE SCIENCES TEACHER) Pathologist Sig nature POCT GLU 222 (H) 70 - 110 mg/dL [facility] Specimen Blood Performing Organization Address [facility] Phone Number [facility] CLIA: [id number] [place], [place] [address] [address] POCT GLUCOSE (AUTOMATED) (03/25/2020 7:18 AM LIFE SCIENCES TEACHER) Pathologist Sig nature POCT GLU 115 (H) 70 - 110 mg/dL [facility] Specimen Blood Performing Organization Address [facility] Phone Number [facility] CLIA: [id number] [place] [address] [phone] [address] POCT GLUCOSE (AUTOMATED) (03/25/2020 4:08 AM LIFE SCIENCES TEACHER) Pathologist Sig nature POCT GLU 181 (H) 70 - 110 mg/dL [facility] Specimen Blood Performing Organization Address [facility] Phone Number [facility] CLIA: [id number] [place] [address] [phone] [address] POCT GLUCOSE (AUTOMATED) (03/25/2020 12:36 AM LIFE SCIENCES TEACHER) Pathologist Sig nature POCT GLU 166 (H) 70 - 110 mg/dL [facility] Specimen Blood Performing Organization Address [facility] Phone Number [facility] CLIA: [id number] [place] [address] [phone] [address] POCT GLUCOSE (AUTOMATED) (03/24/2020 8:00 PM LIFE SCIENCES TEACHER) Pathologist Sig nature POCT GLU 204 (H) 70 - 110 mg/dL [facility] Specimen Blood Performing Organization Address [facility] Phone Number [facility] CLIA: [id number] [place] [address] [phone] [address] POCT GLUCOSE (AUTOMATED) (03/24/2020 4:43 PM LIFE SCIENCES TEACHER) Pathologist Sig nature POCT GLU 192 (H) 70 - 110 mg/dL [facility] Specimen Blood Performing Organization Address [facility] Phone Number [facility] CLIA: [id number] [place] [address] [phone] [address] [facility] POCT GLUCOSE (AUTOMATED) (03/24/2020 11:59 AM LIFE SCIENCES TEACHER) Pathologist Sig nature POCT GLU 196 (H) 70 - 110 mg/dL [facility] Specimen Blood Performing Organization Address [facility] Phone Number [facility] CLIA: [id number] [place] [address] [phone] [address] [facility] POCT GLUCOSE (AUTOMATED) (03/24/2020 7:26 AM LIFE SCIENCES TEACHER) Pathologist Sig nature POCT GLU 180 (H) 70 - 110 mg/dL [facility] Specimen Blood Performing Organization Address City/[facility]/Zipcode Phone Number [facility] CLIA: [id number] [place] [address] [phone] 301 [facility] POCT GLUCOSE (AUTOMATED) (03/24/2020 4:31 AM LIFE SCIENCES TEACHER) Pathologist Sig nature POCT GLU 133 (H) 70 - 110 mg/dL [facility] Specimen Blood Performing Organization Address City/[facility]/Zipcode Phone Number [facility] CLIA: [id number] [place] [address] [phone] 301 [facility] CBC WITH DIFF (03/24/2020 3:58 AM LIFE SCIENCES TEACHER) Pathologist Sig nature WBC 10.83 (H) 4.20 - 10.70 [facility] 10*3/L SERVICES RBC 3.48 (L) 4.26 - 5.52 [facility] 10*6/L SERVICES HGB 9.9 (L) 12.2 - 16.4 [facility] g/dL SERVICES HCT 29.3 (L) 38.4 - 49.3 % [facility] MCV 84.2 81.7 - 95.6 fL [facility] MCH 28.4 26.1 - 32.7 pg [facility] MCHC 33.8 31.2 - 35.0 [facility] g/dL SERVICES RDW-SD 45.8 38.5 - 51.6 fL [facility] RDW-CV 15.5 (H) 12.1 - 15.4 % [facility] PLT 475 (H) 150 - 328 [facility] 10*3/L SERVICES MPV 9.3 (L) 9.8 - 13.0 fL [facility] NRBC/100 WBC 0.0 0.0 - 10.0 /100 [facility] WBCs SERVICES NRBC x10^3 <0.01 10*3/L [facility] GRAN MAT (NEUT) % 72.9 % [facility] IMM GRAN % 3.40 % [facility] LYMPH % 17.3 % [facility] MONO % 4.2 % [facility] EOS % 1.8 % [facility] BASO % 0.4 % [facility] GRAN MAT x10^3(ANC) 7.89 (H) 1.99 - 6.95 [facility] 10*3/uL SERVICES IMM GRAN x10^3 0.37 (H) 0.00 - 0.06 [facility] 10*3/uL SERVICES LYMPH x10^3 1.87 1.09 - 3.23 [facility] 10*3/uL SERVICES MONO x10^3 0.46 0.36 - 1.02 [facility] 10*3/uL SERVICES EOS x10^3 0.20 0.06 - 0.53 [facility] 10*3/uL SERVICES BASO x10^3 0.04 0.01 - 0.09 [facility] 10*3/uL SERVICES Specimen Blood - ARM, LEFT Performing Organization Address City/[facility] Phone Number [facility] CLIA: [id number] [place] [address] [place] [address] POCT GLUCOSE (AUTOMATED) (03/23/2020 11:59 PM LIFE SCIENCES TEACHER) Pathologist Sig nature POCT GLU 137 (H) 70 - 110 mg/dL [facility] Specimen Blood Performing Organization Address [facility] Phone Number [facility] CLIA: [id number] [place] [address] [place] [address] POCT GLUCOSE (AUTOMATED) (03/23/2020 7:34 PM LIFE SCIENCES TEACHER) Pathologist Sig nature POCT GLU 192 (H) 70 - 110 mg/dL [facility] Specimen Blood Performing Organization Address [facility] Phone Number [facility] CLIA: [id number] [place] [address] [place] [address] POCT GLUCOSE (AUTOMATED) (03/23/2020 5:32 PM LIFE SCIENCES TEACHER) Pathologist Sig nature POCT GLU 176 (H) 70 - 110 mg/dL [facility] Specimen Blood Performing Organization Address [facility] Phone Number [facility] CLIA: [id number] [place] [address] [phone] 301 [facility] POCT GLUCOSE (AUTOMATED) (03/23/2020 3:52 PM LIFE SCIENCES TEACHER) Pathologist Sig nature POCT GLU 179 (H) 70 - 110 mg/dL [facility] Specimen Blood Performing Organization Address City/[facility] Phone Number [facility] CLIA: [id number] [place] [address] [phone] 301 [facility] POCT GLUCOSE (AUTOMATED) (03/23/2020 11:58 AM LIFE SCIENCES TEACHER) Pathologist Sig nature POCT GLU 160 (H) 70 - 110 mg/dL [facility] Specimen Blood Performing Organization Address [facility] Phone Number [facility] CLIA: [id number] [place] [address] [phone] 301 [facility] POCT GLUCOSE (AUTOMATED) (03/23/2020 7:55 AM LIFE SCIENCES TEACHER) Pathologist Sig nature POCT GLU 125 (H) 70 - 110 mg/dL [facility] Specimen Blood Performing Organization Address [facility] Phone Number [facility] CLIA: [id number] [place] [address] [phone] 301 [facility] PHOSPHORUS (03/23/2020 5:28 AM LIFE SCIENCES TEACHER) Pathologist Sig nature PHOSPHORUS 4.1 2.5 - 5.0 mg/dL [facility] Specimen Blood - ARM, LEFT Performing Organization Address City/[facility] Phone Number [facility] CLIA: [id number] [place] [address] [phone] 301 [facility] MAGNESIUM (03/23/2020 5:28 AM LIFE SCIENCES TEACHER) Pathologist Sig nature MAGNESIUM 1.6 (L) 1.7 - 2.4 mg/dL [facility] Specimen Blood - ARM, LEFT Performing Organization Address [facility] Phone Number [facility] CLIA: [id number] [place] [address] [place] [address] BASIC METABOLIC PANEL (NA, K, CL, CO2, GLUCOSE, BUN, CREATININE, CA) (03/23/2020 5:28 AM LIFE SCIENCES TEACHER) Pathologist Clay nature NA 136 135 - 145 [facility] mmol/L SERVICES K 4.0 3.5 - 5.0 [facility] mmol/L SERVICES CL 102 98 - 108 mmol/L [facility] CO2 TOTAL 29 23 - 31 mmol/L [facility] AGAP 5 2 - 16 [facility] BUN 7 7 - 23 mg/dL [facility] GLUCOSE 134 (H) 70 - 110 mg/dL [facility] CREATININE 0.64 0.60 - 1.25 [facility] mg/dL SERVICES CALCIUM 8.0 (L) 8.6 - 10.6 [facility] mg/dL SERVICES eGFR Calculation 127.1 mL/min/1.73m2 [facility] (Non- SERVICES Georgian) eGFR Calculation 154.1 mL/min/1.73m2 [facility] () SERVICES Specimen Blood - ARM, LEFT Narrative Performed At Association of Glomerular Filtration Rate (GFR) and St aging [facility] of Kidney Disease* + + +------- ------ + | GFR (mL/min/1.73 m2) | With Kidney Damage | Wi thout Kidney Damage + + +------- ------ + | >90 | Stage one | Normal + + +------- ------ + | 60-89 | Stage two | Decreased GFR + + +------- ------ + | 30-59 | Stage three | Stage three + + +------- ------ + | 15-29 | Stage four | Stage four + + +------- ------ + | <15 (or dialysis) | Stage five | Stage five + + +------- ------ + *Each stage assumes the associated GFR level has been in effect for at least three months. Stages 1 to 5, wit h or without kidney disease, indicate chronic kidney disease. Notes: Determination of stages one and two (with eGFR >59mL/min/1.73 m2) requires estimation of kidney damag e for at least three months as defined by structural or func tional abnormalities of the kidney, manifested by either: Pathological abnormalities or Markers of kidney damage (including abnormalities in the composition of the blo od or urine or abnormalities in imaging tests) . Performing Organization Address City/State/Zipcode Phone Number [facility] CLIA: [id number] [place], [place] [address] [address] [place], [place] [address]vd CBC WITH DIFF (03/23/2020 5:28 AM LIFE SCIENCES TEACHER) Pathologist Sig nature WBC 10.81 (H) 4.20 - 10.70 [facility] 10*3/L SERVICES RBC 3.50 (L) 4.26 - 5.52 [facility] 10*6/L SERVICES HGB 9.9 (L) 12.2 - 16.4 [facility] g/dL SERVICES HCT 29.6 (L) 38.4 - 49.3 % [facility] MCV 84.6 81.7 - 95.6 fL [facility] MCH 28.3 26.1 - 32.7 pg [facility] MCHC 33.4 31.2 - 35.0 [facility] g/dL SERVICES RDW-SD 46.0 38.5 - 51.6 fL [facility] RDW-CV 15.1 12.1 - 15.4 % [facility] PLT 487 (H) 150 - 328 [facility] 10*3/L SERVICES MPV 9.5 (L) 9.8 - 13.0 fL [facility] NRBC/100 WBC 0.0 0.0 - 10.0 /100 [facility] WBCs SERVICES NRBC x10^3 <0.01 10*3/L [facility] GRAN MAT (NEUT) % 75.4 % [facility] IMM GRAN % 4.30 % [facility] LYMPH % 13.8 % [facility] MONO % 4.0 % [facility] EOS % 1.9 % [facility] BASO % 0.6 % [facility] GRAN MAT x10^3(ANC) 8.16 (H) 1.99 - 6.95 [facility] 10*3/uL SERVICES IMM GRAN x10^3 0.47 (H) 0.00 - 0.06 [facility] 10*3/uL SERVICES LYMPH x10^3 1.49 1.09 - 3.23 [facility] 10*3/uL SERVICES MONO x10^3 0.43 0.36 - 1.02 [facility] 10*3/uL SERVICES EOS x10^3 0.20 0.06 - 0.53 [facility] 10*3/uL SERVICES BASO x10^3 0.06 0.01 - 0.09 [facility] 10*3/uL SERVICES Specimen Blood - ARM, LEFT Performing Organization Address City/State/[facility] Phone Number [facility] CLIA: [id number] [place] [address] [phone] 301 [facility] POCT GLUCOSE (AUTOMATED) (03/23/2020 3:25 AM LIFE SCIENCES TEACHER) Pathologist Sig nature POCT GLU 137 (H)Comment: 70 - 110 mg/dL [facility] RNNotified [facility] Specimen Blood Performing Organization Address [facility] Phone Number [facility] CLIA: [id number] [place] [address] [phone] [address] [facility] POCT GLUCOSE (AUTOMATED) (03/22/2020 11:21 PM LIFE SCIENCES TEACHER) Pathologist Sig nature POCT GLU 136 (H)Comment: 70 - 110 mg/dL [facility] RNNotified [facility] Specimen Blood Performing Organization Address [facility] Phone Number [facility] CLIA: [id number] [place] [address] [phone] 301 [facility] [place] POCT GLUCOSE (AUTOMATED) (03/22/2020 7:17 PM LIFE SCIENCES TEACHER) Pathologist Sig nature POCT GLU 155 (H)Comment: 70 - 110 mg/dL [facility]Not[facility] Specimen Blood Performing Organization Address [facility] Phone Number [facility] CLIA: [id number] [place] [address] [phone] [address] [facility] POCT GLUCOSE (AUTOMATED) (03/22/2020 5:04 PM LIFE SCIENCES TEACHER) Pathologist Sig nature POCT GLU 144 (H) 70 - 110 mg/dL [facility] Specimen Blood Performing Organization Address [facility] Phone Number [facility] CLIA: [id number] [place] [address] [phone] [address] [facility] POCT GLUCOSE (AUTOMATED) (03/22/2020 12:59 PM LIFE SCIENCES TEACHER) Pathologist Sig nature POCT GLU 155 (H) 70 - 110 mg/dL [facility] Specimen Blood Performing Organization Address [facility] Phone Number [facility] CLIA: [id number] [place] [address] [phone] 301 [facility] POCT GLUCOSE (AUTOMATED) (03/22/2020 9:35 AM LIFE SCIENCES TEACHER) Pathologist Sig nature POCT GLU 121 (H) 70 - 110 mg/dL [facility] Specimen Blood Performing Organization Address [facility] Phone Number [facility] CLIA: [id number] [place] [address] [place] [address] POCT GLUCOSE (AUTOMATED) (03/22/2020 7:30 AM LIFE SCIENCES TEACHER) Pathologist Sig nature POCT GLU 112 (H) 70 - 110 mg/dL [facility] Specimen Blood Performing Organization Address [facility] Phone Number [facility] CLIA: [id number] [place] [address] [place] [address] PHOSPHORUS (03/22/2020 5:09 AM LIFE SCIENCES TEACHER) Pathologist Sig nature PHOSPHORUS 4.4 2.5 - 5.0 mg/dL [facility] Specimen Blood - ARM, LEFT Performing Organization Address [facility] Phone Number [facility] CLIA: [id number] [place] [address] [place] [address] MAGNESIUM (03/22/2020 5:09 AM LIFE SCIENCES TEACHER) Pathologist Sig nature MAGNESIUM 1.6 (L) 1.7 - 2.4 mg/dL [facility] Specimen Blood - ARM, LEFT Performing Organization Address [facility] Phone Number [facility] CLIA: [id number] [place] [address] [phone] 301 [facility] BASIC METABOLIC PANEL (NA, K, CL, CO2, GLUCOSE, BUN, CREATININE, CA) (03/22/2020 5:09 AM LIFE SCIENCES TEACHER) Pathologist Sig nature NA 137 135 - 145 [facility] mmol/L SERVICES K 4.2 3.5 - 5.0 [facility] mmol/L SERVICES CL 105 98 - 108 mmol/L [facility] CO2 TOTAL 26 23 - 31 mmol/L [facility] AGAP 6 2 - 16 [facility] BUN 10 7 - 23 mg/dL [facility] GLUCOSE 123 (H) 70 - 110 mg/dL [facility] CREATININE 0.64 0.60 - 1.25 [facility] mg/dL SERVICES CALCIUM 7.7 (L) 8.6 - 10.6 [facility] mg/dL SERVICES eGFR Calculation 127.1 mL/min/1.73m2 [facility] (Non- SERVICES Georgian) eGFR Calculation 154.1 mL/min/1.73m2 [facility] () SERVICES Specimen Blood - ARM, LEFT Narrative Performed At Association of Glomerular Filtration Rate (GFR) and St aging [facility] of Kidney Disease* + + +------- ------ + | GFR (mL/min/1.73 m2) | With Kidney Damage | Wi [facility] Kidney Damage + + +------- ------ + | >90 | Stage one | Normal + + +------- ------ + | 60-89 | Stage two | Decreased GFR + + +------- ------ + | 30-59 | Stage three | Stage three + + +------- ------ + | 15-29 | Stage four | Stage four + + +------- ------ + | <15 (or dialysis) | Stage five | Stage five + + +------- ------ + *Each stage assumes the associated GFR level has been in effect for at least three months. Stages 1 to 5, wit h or without kidney disease, indicate chronic kidney disease. Notes: Determination of stages one and two (with eGFR >59mL/min/1.73 m2) requires estimation of kidney damag e for at least three months as defined by structural or func tional abnormalities of the kidney, manifested by either: Pathological abnormalities or Markers of kidney damage (including abnormalities in the composition of the blo od or urine or abnormalities in imaging tests) . Performing Organization Address City/State/Zipcode Phone Number [facility] CLIA: [id number] [place] [address] [place] [address] CBC WITH DIFF (03/22/2020 3:42 AM LIFE SCIENCES TEACHER) Pathologist [facility] nature WBC 8.79 4.20 - 10.70 [facility] 10*3/L SERVICES RBC 3.34 (L) 4.26 - 5.52 [facility] 10*6/L SERVICES HGB 9.6 (L) 12.2 - 16.4 [facility] g/dL SERVICES HCT 28.6 (L) 38.4 - 49.3 % [facility] MCV 85.6 81.7 - 95.6 fL [facility] MCH 28.7 26.1 - 32.7 pg [facility] MCHC 33.6 31.2 - 35.0 [facility] g/dL SERVICES RDW-SD 47.8 38.5 - 51.6 fL [facility] RDW-CV 15.6 (H) 12.1 - 15.4 % [facility] PLT 433 (H) 150 - 328 [facility] 10*3/L SERVICES MPV 9.9 9.8 - 13.0 fL [facility] NRBC/100 WBC 0.0 0.0 - 10.0 /100 [facility] WBCs SERVICES NRBC x10^3 <0.01 10*3/L [facility] GRAN MAT (NEUT) % 65.8 % [facility] IMM GRAN % 7.30 % [facility] LYMPH % 19.1 % [facility] MONO % 5.1 % [facility] EOS % 2.0 % [facility] BASO % 0.7 % [facility] GRAN MAT x10^3(ANC) 5.78 1.99 - 6.95 [facility] 10*3/uL SERVICES IMM GRAN x10^3 0.64 (H) 0.00 - 0.06 [facility] 10*3/uL SERVICES LYMPH x10^3 1.68 1.09 - 3.23 [facility] 10*3/uL SERVICES MONO x10^3 0.45 0.36 - 1.02 [facility] 10*3/uL SERVICES EOS x10^3 0.18 0.06 - 0.53 [facility] 10*3/uL SERVICES BASO x10^3 0.06 0.01 - 0.09 [facility] 10*3/uL SERVICES Specimen Blood - ARM, LEFT Performing Organization Address City/State/Zipcode Phone Number [facility] CLIA: [id number] [place] [address] [place] [address] POCT GLUCOSE (AUTOMATED) (03/22/2020 3:22 AM LIFE SCIENCES TEACHER) Pathologist Sig nature POCT GLU 121 (H)Comment: 70 - 110 mg/dL [facility]NOTT RNNotified Provider HOSPITAL Specimen Blood Performing Organization Address City/State/[facility] Phone Number [facility] CLIA: [id number] [place] [address] [phone] [address] [facility] POCT GLUCOSE (AUTOMATED) (03/21/2020 11:21 PM CDT) Pathologist Sig nature POCT GLU 158 (H)Comment: 70 - 110 mg/dL [facility] RNNotified [facility] Specimen Blood Performing Organization Address [facility] Phone Number [facility] CLIA: [id number] [place], [place] [address] [address] [facility] POCT GLUCOSE (AUTOMATED) (03/21/2020 7:24 PM CDT) Pathologist Sig nature POCT GLU 138 (H)Comment: 70 - 110 mg/dL [facility] RNNotified [facility] Specimen Blood Performing Organization Address [facility] Phone Number [facility] CLIA: [id number] [place] [address] [phone] [address] [facility] POCT GLUCOSE (AUTOMATED) (03/21/2020 6:02 PM CDT) Pathologist Sig nature POCT GLU 141 (H) 70 - 110 mg/dL [facility] Specimen Blood Performing Organization Address [facility] Phone Number [facility] CLIA: [id number] [place] [address] [phone] [address] [facility] POCT GLUCOSE (AUTOMATED) (03/21/2020 1:42 PM CDT) Pathologist Sig nature POCT GLU 94 70 - 110 mg/dL [facility] Specimen Blood Performing Organization Address [facility] Phone Number [facility] CLIA: [id number] [place], [place] [address] [address] [facility] POCT GLUCOSE (AUTOMATED) (03/21/2020 8:38 AM CDT) Pathologist Sig nature POCT GLU 108 70 - 110 mg/dL [facility] Specimen Blood Performing Organization Address City/State/Zipcode Phone Number [facility] CLIA: [id number] [place] [address] [place] [address] Vancomycin Trough Level - Draw immediately prior to the 4TH dose, but, no more than 60 minutes before the NEXT dose. (03/21/2020 4:17 AM CDT) Pathologist Sig nature VANCO TROUGH 10.0 10.0 - 20.0 ug/mL [facility] Specimen Blood - ARM, LEFT Narrative Performed At Toxic Range: >20 ug/mL [facility] 15-20 ug/mL is recommended for severe infection or whe n Vancomycin MILLICENT is greater than or equal to 2. Performing Organization Address [facility] Phone Number [facility] CLIA: [id number] [place] [address] [place] [address] PHOSPHORUS (03/21/2020 3:35 AM CDT) Pathologist Sig nature PHOSPHORUS 3.5 2.5 - 5.0 mg/dL [facility] Specimen Blood - ARM, LEFT Performing Organization Address City/[facility] Phone Number [facility] CLIA: [id number] [place] [address] [place] [address] MAGNESIUM (03/21/2020 3:35 AM CDT) Pathologist Sig nature MAGNESIUM 1.7 1.7 - 2.4 mg/dL [facility] Specimen Blood - ARM, LEFT Performing Organization Address [facility] Phone Number [facility] CLIA: [id number] [place] [address] [place] [address] BASIC METABOLIC PANEL (NA, K, CL, CO2, GLUCOSE, BUN, CREATININE, CA) (03/21/2020 3:35 AM CDT) Pathologist Sig nature NA 135 135 - 145 [facility] mmol/L SERVICES K 4.0 3.5 - 5.0 [facility] mmol/L SERVICES CL 109 (H) 98 - 108 mmol/L [facility] CO2 TOTAL 22 (L) 23 - 31 mmol/L [facility] AGAP 4 2 - 16 [facility] BUN 13 7 - 23 mg/dL [facility] GLUCOSE 125 (H) 70 - 110 mg/dL [facility] CREATININE 0.63 0.60 - 1.25 [facility] mg/dL SERVICES CALCIUM 7.7 (L) 8.6 - 10.6 [facility] mg/dL SERVICES eGFR Calculation 129.5 mL/min/1.73m2 [facility] (Non- SERVICES Georgian) eGFR Calculation 156.9 mL/min/1.73m2 [facility] () SERVICES Specimen Blood - ARM, LEFT Narrative Performed At Association of Glomerular Filtration Rate (GFR) and St aging [facility] of Kidney Disease* + + +------- ------ + | GFR (mL/min/1.73 m2) | With Kidney Damage | Wi thout Kidney Damage + + +------- ------ + | >90 | Stage one | Normal + + +------- ------ + | 60-89 | Stage two | Decreased GFR + + +------- ------ + | 30-59 | Stage three | Stage three + + +------- ------ + | 15-29 | Stage four | Stage four + + +------- ------ + | <15 (or dialysis) | Stage five | Stage five + + +------- ------ + *Each stage assumes the associated GFR level has been in effect for at least three months. Stages 1 to 5, wit h or without kidney disease, indicate chronic kidney disease. Notes: Determination of stages one and two (with eGFR >59mL/min/1.73 m2) requires estimation of kidney damag e for at least three months as defined by structural or func tional abnormalities of the kidney, manifested by either: Pathological abnormalities or Markers of kidney damage (including abnormalities in the composition of the blo od or urine or abnormalities in imaging tests) . Performing Organization Address City/State/Zipcode Phone Number [facility] CLIA: [id number] [place], [place] [id number] [address] [place] [address] CBC WITH DIFF (03/21/2020 3:35 AM CDT) Pathologist Sig nature WBC 12.45 (H) 4.20 - 10.70 [facility] 10*3/L SERVICES RBC 3.18 (L) 4.26 - 5.52 [facility] 10*6/L SERVICES HGB 9.1 (L) 12.2 - 16.4 [facility] g/dL SERVICES HCT 26.7 (L) 38.4 - 49.3 % [facility] MCV 84.0 81.7 - 95.6 fL [facility] MCH 28.6 26.1 - 32.7 pg [facility] MCHC 34.1 31.2 - 35.0 [facility] g/dL SERVICES RDW-SD 46.7 38.5 - 51.6 fL [facility] RDW-CV 15.3 12.1 - 15.4 % [facility] PLT 441 (H) 150 - 328 [facility] 10*3/L SERVICES MPV 9.3 (L) 9.8 - 13.0 fL [facility] NRBC/100 WBC 0.0 0.0 - 10.0 /100 [facility] WBCs SERVICES NRBC x10^3 <0.01 10*3/L [facility] GRAN MAT (NEUT) % 67.4 % [facility] IMM GRAN % 7.60 % [facility] LYMPH % 16.5 % [facility] MONO % 6.2 % [facility] EOS % 1.8 % [facility] BASO % 0.5 % [facility] GRAN MAT x10^3(ANC) 8.38 (H) 1.99 - 6.95 [facility] 10*3/uL SERVICES IMM GRAN x10^3 0.95 (H) 0.00 - 0.06 [facility] 10*3/uL SERVICES LYMPH x10^3 2.06 1.09 - 3.23 [facility] 10*3/uL SERVICES MONO x10^3 0.77 0.36 - 1.02 [facility] 10*3/uL SERVICES EOS x10^3 0.23 0.06 - 0.53 [facility] 10*3/uL SERVICES BASO x10^3 0.06 0.01 - 0.09 [facility] 10*3/uL SERVICES Specimen Blood - ARM, LEFT Performing Organization Address City/State/Zipcode Phone Number [facility] CLIA: [id number] [place] [address] [place] [address] POCT GLUCOSE (AUTOMATED) (03/21/2020 3:30 AM CDT) Pathologist [facility] nature POCT GLU 123 (H)Comment: 70 - 110 mg/dL [facility] RNNotified Provider HOSPITAL Specimen Blood Performing Organization Address City/[facility]/Zipcode Phone Number [facility] CLIA: [id number] [place] [address] [phone] 301 [facility] POCT GLUCOSE (AUTOMATED) (03/21/2020 12:19 AM CDT) Pathologist Sig nature POCT GLU 136 (H) 70 - 110 mg/dL [facility] Specimen Blood Performing Organization Address [facility] Phone Number [facility] CLIA: [id number] [place] [address] [phone] 301 [facility] POCT GLUCOSE (AUTOMATED) (03/20/2020 7:49 PM CDT) Pathologist Sig nature POCT GLU 163 (H) 70 - 110 mg/dL [facility] Specimen Blood Performing Organization Address [facility] Phone Number [facility] CLIA: [id number] [place] [address] [phone] 301 [facility] CBC WITH DIFF (03/20/2020 5:51 PM CDT) Pathologist Sig nature WBC 14.46 (H) 4.20 - 10.70 [facility] 10*3/L SERVICES RBC 2.99 (L) 4.26 - 5.52 [facility] 10*6/L SERVICES HGB 8.6 (L) 12.2 - 16.4 [facility] g/dL SERVICES HCT 24.9 (L) 38.4 - 49.3 % [facility] MCV 83.3 81.7 - 95.6 fL [facility] MCH 28.8 26.1 - 32.7 pg [facility] MCHC 34.5 31.2 - 35.0 [facility] g/dL SERVICES RDW-SD 46.0 38.5 - 51.6 fL [facility] RDW-CV 15.2 12.1 - 15.4 % [facility] PLT 436 (H) 150 - 328 [facility] 10*3/L SERVICES MPV 9.4 (L) 9.8 - 13.0 fL [facility] NRBC/100 WBC 0.0 0.0 - 10.0 /100 [facility] WBCs SERVICES NRBC x10^3 <0.01 10*3/L [facility] GRAN MAT (NEUT) % 74.9 % [facility] IMM GRAN % 5.60 % [facility] LYMPH % 13.1 % [facility] MONO % 5.3 % [facility] EOS % 0.8 % [facility] BASO % 0.3 % [facility] GRAN MAT x10^3(ANC) 10.84 (H) 1.99 - 6.95 [facility] 10*3/uL SERVICES IMM GRAN x10^3 0.81 (H) 0.00 - 0.06 [facility] 10*3/uL SERVICES LYMPH x10^3 1.89 1.09 - 3.23 [facility] 10*3/uL SERVICES MONO x10^3 0.76 0.36 - 1.02 [facility] 10*3/uL SERVICES EOS x10^3 0.11 0.06 - 0.53 [facility] 10*3/uL SERVICES BASO x10^3 0.05 0.01 - 0.09 [facility] 10*3/uL SERVICES Specimen Blood - ARM, LEFT Performing Organization Address City/[facility] Phone Number [facility] CLIA: [id number] [place] [address] [place] [address] POCT GLUCOSE (AUTOMATED) (03/20/2020 4:08 PM CDT) Pathologist Sig nature POCT GLU 191 (H) 70 - 110 mg/dL [facility] Specimen Blood Performing Organization Address City/[facility] Phone Number [facility] CLIA: [id number] [place] [address] [place] [address] POCT GLUCOSE (AUTOMATED) (03/20/2020 11:12 AM CDT) Pathologist Sig nature POCT GLU 176 (H) 70 - 110 mg/dL [facility] Specimen Blood Performing Organization Address [facility] Phone Number [facility] CLIA: [id number] [place] [address] [phone] 301 [facility] POCT GLUCOSE (AUTOMATED) (03/20/2020 7:20 AM CDT) Pathologist Sig nature POCT GLU 189 (H) 70 - 110 mg/dL [facility] Specimen Blood Performing Organization Address City/[facility]/Zipcode Phone Number [facility] CLIA: [id number] [place] [address] [place] [address] PHOSPHORUS (03/20/2020 3:44 AM CDT) Pathologist Sig nature PHOSPHORUS 3.1 2.5 - 5.0 mg/dL [facility] Specimen Blood - ARM, LEFT Performing Organization Address City/[facility] Phone Number [facility] CLIA: [id number] [place] [address] [place] [address] MAGNESIUM (03/20/2020 3:44 AM CDT) Pathologist Sig nature MAGNESIUM 1.9 1.7 - 2.4 mg/dL [facility] Specimen Blood - ARM, LEFT Performing Organization Address [facility] Phone Number [facility] CLIA: [id number] [place] [address] [place] [address] BASIC METABOLIC PANEL (NA, K, CL, CO2, GLUCOSE, BUN, CREATININE, CA) (03/20/2020 3:44 AM CDT) Pathologist Sig nature NA 135 135 - 145 [facility] mmol/L SERVICES K 4.4 3.5 - 5.0 [facility] mmol/L SERVICES CL 112 (H) 98 - 108 mmol/L [facility] CO2 TOTAL 19 (L) 23 - 31 mmol/L [facility] AGAP 4 2 - 16 [facility] BUN 19 7 - 23 mg/dL [facility] GLUCOSE 199 (H) 70 - 110 mg/dL [facility] CREATININE 0.68 0.60 - 1.25 [facility] mg/dL SERVICES CALCIUM 7.6 (L) 8.6 - 10.6 [facility] mg/dL SERVICES eGFR Calculation 118.5 mL/min/1.73m2 [facility] (Non- SERVICES Georgian) eGFR Calculation 143.7 mL/min/1.73m2 [facility] () SERVICES Specimen Blood - ARM, LEFT Narrative Performed At Association of Glomerular Filtration Rate (GFR) and St aging [facility] of Kidney Disease* + + +------- ------ + | GFR (mL/min/1.73 m2) | With Kidney Damage | Wi thout Kidney Damage + + +------- ------ + | >90 | Stage one | Normal + + +------- ------ + | 60-89 | Stage two | Decreased GFR + + +------- ------ + | 30-59 | Stage three | Stage three + + +------- ------ + | 15-29 | Stage four | Stage four + + +------- ------ + | <15 (or dialysis) | Stage five | Stage five + + +------- ------ + *Each stage assumes the associated GFR level has been in effect for at least three months. Stages 1 to 5, wit h or without kidney disease, indicate chronic kidney disease. Notes: Determination of stages one and two (with eGFR >59mL/min/1.73 m2) requires estimation of kidney damag e for at least three months as defined by structural or func tional abnormalities of the kidney, manifested by either: Pathological abnormalities or Markers of kidney damage (including abnormalities in the composition of the blo od or urine or abnormalities in imaging tests) . Performing Organization Address City/State/Zipcode Phone Number [facility] CLIA: [id number] [place] [address] [place] [address] CBC WITH DIFF (03/20/2020 3:44 AM CDT) [facility] Sig nature WBC 20.65 (H) 4.20 - 10.70 [facility] 10*3/L SERVICES RBC 2.96 (L) 4.26 - 5.52 [facility] 10*6/L SERVICES HGB 8.6 (L) 12.2 - 16.4 [facility] g/dL SERVICES HCT 24.7 (L) 38.4 - 49.3 % [facility] MCV 83.4 81.7 - 95.6 fL [facility] MCH 29.1 26.1 - 32.7 pg [facility] MCHC 34.8 31.2 - 35.0 [facility] g/dL SERVICES RDW-SD 46.2 38.5 - 51.6 fL [facility] RDW-CV 15.2 12.1 - 15.4 % [facility] PLT 436 (H) 150 - 328 [facility] 10*3/L SERVICES MPV 9.6 (L) 9.8 - 13.0 fL [facility] NRBC/100 WBC 0.0 0.0 - 10.0 /100 [facility] WBCs SERVICES NRBC x10^3 <0.01 10*3/L [facility] GRAN MAT (NEUT) % 81.4 % [facility] IMM GRAN % 5.40 % [facility] LYMPH % 7.7 % [facility] MONO % 5.2 % [facility] EOS % 0.1 % [facility] BASO % 0.2 % [facility] GRAN MAT x10^3(ANC) 16.81 (H) 1.99 - 6.95 [facility] 10*3/uL SERVICES IMM GRAN x10^3 1.12 (H) 0.00 - 0.06 [facility] 10*3/uL SERVICES LYMPH x10^3 1.58 1.09 - 3.23 [facility] 10*3/uL SERVICES MONO x10^3 1.07 (H) 0.36 - 1.02 [facility] 10*3/uL SERVICES EOS x10^3 <0.03 (L) 0.06 - 0.53 [facility] 10*3/uL SERVICES BASO x10^3 0.05 0.01 - 0.09 [facility] 10*3/uL SERVICES Specimen Blood - ARM, LEFT Performing Organization Address City/[facility] Hospitalcot[facility] Phone Number [facility] CLIA: [id number] [place] [address] [place] [address] POCT GLUCOSE (AUTOMATED) (03/20/2020 3:39 AM CDT) Pathologist Sig nature POCT GLU 206 (H)Comment: 70 - 110 mg/dL [facility] Specimen Blood Performing Organization Address City/[facility] Hospitalcot[facility] Phone Number [facility] CLIA: [id number] [place] [address] [place] [address] POCT GLUCOSE (AUTOMATED) (03/20/2020 12:13 AM CDT) Pathologist Sig nature POCT GLU 221 (H)Comment: 70 - 110 mg/dL [facility] Provider [facility] Specimen Blood Performing Organization Address [facility] Phone Number [facility] CLIA: [id number] [place] [address] [place] [address] POCT GLUCOSE (AUTOMATED) (03/19/2020 7:38 PM CDT) Pathologist Sig nature POCT GLU 244 (H) 70 - 110 mg/dL [facility] Specimen Blood Performing Organization Address City/[facility] Phone Number [facility] CLIA: [id number] [place] [address] [phone] 301 [facility] POCT GLUCOSE (AUTOMATED) (03/19/2020 4:53 PM CDT) Pathologist Sig nature POCT GLU 293 (H) 70 - 110 mg/dL [facility] Specimen Blood Performing Organization Address [facility] Phone Number [facility] CLIA: [id number] [place] [address] [phone] 301 [facility] BLOOD CULTURE SCREEN (03/19/2020 1:40 PM CDT) Pathologist [facility] Blood No organisms isolated No growth [facility] Culture-Aerobic Comment: SERVICES Previous preliminary verifie d result was Culture In Progress on 03/19/2020 at 1801 CDT Previous preliminary verifie d result was No growth at 24 hours on 03/20/2020 at 1501 CDT Previous preliminary verifie d result was No growth at 48 hours on 03/21/2020 at 1501 CDT Previous preliminary verifie d result was No growth at 72 hours on 03/22/2020 at 1401 [employer] Blood No organisms isolated No growth [facility] Culture-Anaerobic Comment: SERVICES Previous preliminary verifie d result was Culture In Progress on 03/19/2020 at 1801 CDT Previous preliminary verifie d result was No growth at 24 hours on 03/20/2020 at 1501 CDT Previous preliminary verifie d result was No growth at 48 hours on 03/21/2020 at 1501 CDT Previous preliminary verifie d result was No growth at 72 hours on 03/22/2020 at 1401 [employer] Specimen Blood - VENOUS Performing Organization Address City/[facility]/Zipcode Phone Number [facility] CLIA: [id number] [place] [address] [phone] 301 [facility] BLOOD CULTURE SCREEN (03/19/2020 1:40 PM CDT) Blood No organisms isolated No growth [facility] Culture-Aerobic Comment: SERVICES Previous preliminary verifie d result was Culture In Progress on 03/19/2020 at 1801 CDT Previous preliminary verifie d result was No growth at 24 hours on 03/20/2020 at 1501 CDT Previous preliminary verifie d result was No growth at 48 hours on 03/21/2020 at 1501 CDT Previous preliminary verifie d result was No growth at 72 hours on 03/22/2020 at 1401 [employer] Blood No organisms isolated No growth [facility] Culture-Anaerobic Comment: SERVICES Previous preliminary verifie d result was Culture In Progress on 03/19/2020 at 1801 CDT Previous preliminary verifie d result was No growth at 24 hours on 03/20/2020 at 1501 CDT Previous preliminary verifie d result was No growth at 48 hours on 03/21/2020 at 1501 CDT Previous preliminary verifie d result was No growth at 72 hours on 03/22/2020 at 1401 [employer] Specimen Blood - VENOUS Performing Organization Address City/[facility] Phone Number [facility] CLIA: [id number] [place], [place] [address] [address] [place] [address] POCT GLUCOSE (AUTOMATED) (03/19/2020 11:21 AM CDT) Pathologist Sig nature POCT GLU 185 (H) 70 - 110 mg/dL [facility] Specimen Blood Performing Organization Address City/[facility] Phone Number [facility] CLIA: [id number] [place] [address] [place] [address] POCT GLUCOSE (AUTOMATED) (03/19/2020 7:20 AM CDT) Pathologist Sig nature POCT GLU 217 (H) 70 - 110 mg/dL [facility] Specimen Blood Performing Organization Address [facility] Phone Number [facility] CLIA: [id number] [place] [address] [phone] 301 [facility] PHOSPHORUS (03/19/2020 4:13 AM CDT) Pathologist Sig nature PHOSPHORUS 3.4 2.5 - 5.0 mg/dL [facility] Specimen Blood - ARM, LEFT Performing Organization Address [facility] Phone Number [facility] CLIA: [id number] [place] [address] [place] [address] MAGNESIUM (03/19/2020 4:13 AM CDT) Pathologist Sig nature MAGNESIUM 1.9 1.7 - 2.4 mg/dL [facility] Specimen Blood - ARM, LEFT Performing Organization Address [facility] Phone Number [facility] CLIA: [id number] [place] [address] [place] [address] BASIC METABOLIC PANEL (NA, K, CL, CO2, GLUCOSE, BUN, CREATININE, CA) (03/19/2020 4:13 AM CDT) Pathologist Sig nature NA 135 135 - 145 [facility] mmol/L SERVICES K 4.3 3.5 - 5.0 [facility] mmol/L SERVICES CL 110 (H) 98 - 108 mmol/L [facility] CO2 TOTAL 17 (L) 23 - 31 mmol/L [facility] AGAP 8 2 - 16 [facility] BUN 18 7 - 23 mg/dL [facility] GLUCOSE 216 (H) 70 - 110 mg/dL [facility] CREATININE 0.73 0.60 - 1.25 [facility] mg/dL SERVICES CALCIUM 7.6 (L) 8.6 - 10.6 [facility] mg/dL SERVICES eGFR Calculation 109.2 mL/min/1.73m2 [facility] (Non- SERVICES Georgian) eGFR Calculation 132.4 mL/min/1.73m2 [facility] () SERVICES Specimen Blood - ARM, LEFT Narrative Performed At Association of Glomerular Filtration Rate (GFR) and St aging [facility] of Kidney Disease* + + +------- ------ + | GFR (mL/min/1.73 m2) | With Kidney Damage | Wi thout Kidney Damage + + +------- ------ + | >90 | Stage one | Normal + + +------- ------ + | 60-89 | Stage two | Decreased GFR + + +------- ------ + | 30-59 | Stage three | Stage three + + +------- ------ + | 15-29 | Stage four | Stage four + + +------- ------ + | <15 (or dialysis) | Stage five | Stage five + + +------- ------ + *Each stage assumes the associated GFR level has been in effect for at least three months. Stages 1 to 5, wit h or without kidney disease, indicate chronic kidney disease. Notes: Determination of stages one and two (with eGFR >59mL/min/1.73 m2) requires estimation of kidney damag e for at least three months as defined by structural or func tional abnormalities of the kidney, manifested by either: Pathological abnormalities or Markers of kidney damage (including abnormalities in the composition of the blo od or urine or abnormalities in imaging tests) . Performing Organization Address City/State/Zipcode Phone Number [facility] CLIA: [id number] [place] [address] [place] [address] CBC WITH DIFF (03/19/2020 4:13 AM CDT) WBC 13.05 (H) 4.20 - 10.70 [facility] 10*3/L SERVICES RBC 2.82 (L) 4.26 - 5.52 [facility] 10*6/L SERVICES HGB 8.2 (L) 12.2 - 16.4 [facility] g/dL SERVICES HCT 23.7 (L) 38.4 - 49.3 % [facility] MCV 84.0 81.7 - 95.6 fL [facility] MCH 29.1 26.1 - 32.7 pg [facility] MCHC 34.6 31.2 - 35.0 [facility] g/dL SERVICES RDW-SD 45.6 38.5 - 51.6 fL [facility] RDW-CV 14.7 12.1 - 15.4 % [facility] PLT 348 (H) 150 - 328 [facility] 10*3/L SERVICES MPV 9.6 (L) 9.8 - 13.0 fL [facility] NRBC/100 WBC 0.0 0.0 - 10.0 [facility] /100 WBCs SERVICES NRBC x10^3 <0.01 10*3/L [facility] GRAN MAT (NEUT) % 81.2 % [facility] IMM GRAN % 8.20 % [facility] LYMPH % 7.7 % [facility] MONO % 2.7 % [facility] EOS % 0.0 % [facility] BASO % 0.2 % [facility] GRAN MAT 10.61 (H) 1.99 - 6.95 [facility] x10^3(ANC) 10*3/uL SERVICES IMM GRAN x10^3 1.07 (H) 0.00 - 0.06 [facility] 10*3/uL SERVICES LYMPH x10^3 1.00 (L) 1.09 - 3.23 [facility] 10*3/uL SERVICES MONO x10^3 0.35 (L) 0.36 - 1.02 [facility] 10*3/uL SERVICES EOS x10^3 <0.03 (L) 0.06 - 0.53 [facility] 10*3/uL SERVICES BASO x10^3 <0.03 0.01 - 0.09 [facility] 10*3/uL SERVICES CIRILO CELLS 2+ (A) (none) [facility] BANDS Increased (A) [facility] Specimen Blood - ARM, LEFT Performing Organization Address City/[facility] Phone Number [facility] CLIA: [id number] [place] [address] [phone] 301 [facility] POCT GLUCOSE (AUTOMATED) (03/19/2020 4:03 AM CDT) Pathologist Sig nature POCT GLU 241 (H)Comment: 70 - 110 mg/dL [facility] Specimen Blood Performing Organization Address City/[facility] Phone Number [facility] CLIA: [id number] [place] [address] [place] [address] POCT GLUCOSE (AUTOMATED) (03/18/2020 11:35 PM CDT) Pathologist Sig nature POCT GLU 228 (H)Comment: 70 - 110 mg/dL [facility] Specimen Blood Performing Organization Address City/[facility] Phone Number [facility] CLIA: [id number] [place] [address] [phone] 301 [facility] POCT GLUCOSE (AUTOMATED) (03/18/2020 9:09 PM CDT) Pathologist Sig nature POCT GLU 231 (H) 70 - 110 mg/dL [facility] Specimen Blood Performing Organization Address City/[facility] Phone Number [facility] CLIA: [id number] [place] [address] [phone] 301 [facility] POCT GLUCOSE (AUTOMATED) (03/18/2020 6:00 PM CDT) Pathologist Sig nature POCT GLU 222 (H) 70 - 110 mg/dL [facility] Specimen Blood Performing Organization Address City/[facility] Phone Number [facility] CLIA: [id number] [place] [address] [phone] 301 [facility] CBC WITHOUT DIFF (03/18/2020 4:56 PM CDT) Pathologist Sig nature WBC 25.91 (H) 4.20 - 10.70 [facility] 10*3/L SERVICES RBC 2.98 (L) 4.26 - 5.52 [facility] 10*6/L SERVICES HGB 8.7 (L) 12.2 - 16.4 g/dL [facility] HCT 25.8 (L) 38.4 - 49.3 % [facility] MCH 29.2 26.1 - 32.7 pg [facility] MCV 86.6 81.7 - 95.6 fL [facility] MCHC 33.7 31.2 - 35.0 g/dL [facility] PLT 372 (H) 150 - 328 10*3/L [facility] MPV 9.7 (L) 9.8 - 13.0 fL [facility] RDW-CV 14.8 12.1 - 15.4 % [facility] RDW-SD 47.0 38.5 - 51.6 fL [facility] NRBC x10^3 <0.01 10*3/L [facility] NRBC/100 WBC 0.0 0.0 - 10.0 /100 [facility] WBCs SERVICES IPF % [facility] Specimen Blood - ARM, LEFT Performing Organization Address City/State/Zipcode Phone Number [facility] CLIA: [id number] [place] [address] [phone] PHOSPHORUS (03/18/2020 4:55 PM CDT) Pathologist Sig nature PHOSPHORUS 4.3 2.5 - 5.0 mg/dL [facility] Specimen Blood - ARM, LEFT Performing Organization Address [facility]/Zipcode Phone Number [facility] CLIA: [id number] [place] [address] [place] [address] MAGNESIUM (03/18/2020 4:55 PM CDT) Pathologist [facility] MAGNESIUM 1.8 1.7 - 2.4 mg/dL [facility] Specimen Blood - ARM, LEFT Performing Organization Address [facility] Phone Number [facility] CLIA: [id number] [place] [address] [place] [address] BASIC METABOLIC PANEL (NA, K, CL, CO2, GLUCOSE, BUN, CREATININE, CA) (03/18/2020 4:55 PM CDT) Pathologist Sig nature NA 133 (L) 135 - 145 [facility] mmol/L SERVICES K 4.5 3.5 - 5.0 [facility] mmol/L SERVICES CL 108 98 - 108 mmol/L [facility] SERVICES CO2 TOTAL 16 (L) 23 - 31 mmol/L [facility] SERVICES AGAP 9 2 - 16 [facility] SERVICES BUN 15 7 - 23 mg/dL [facility] SERVICES GLUCOSE 175 (H) 70 - 110 mg/dL [facility] SERVICES CREATININE 0.91 0.60 - 1.25 [facility] mg/dL SERVICES CALCIUM 7.7 (L) 8.6 - 10.6 [facility] mg/dL SERVICES eGFR Calculation 84.7 mL/min/1.73m2 [facility] (Non- SERVICES Georgian) eGFR Calculation 102.7 mL/min/1.73m2 [facility] () SERVICES Specimen Blood - ARM, LEFT Narrative Performed At Association of Glomerular Filtration Rate (GFR) and St aging [facility] SERVICES of Kidney Disease* + + +------- ------ + | GFR (mL/min/1.73 m2) | With Kidney Damage | Wi thout Kidney Damage + + +------- ------ + | >90 | Stage one | Normal + + +------- ------ + | 60-89 | Stage two | Decreased GFR + + +------- ------ + | 30-59 | Stage three | Stage three + + +------- ------ + | 15-29 | Stage four | Stage four + + +------- ------ + | <15 (or dialysis) | Stage five | Stage five + + +------- ------ + *Each stage assumes the associated GFR level has been in effect for at least three months. Stages 1 to 5, wit h or without kidney disease, indicate chronic kidney disease. Notes: Determination of stages one and two (with eGFR >59mL/min/1.73 m2) requires estimation of kidney damag e for at least three months as defined by structural or func tional abnormalities of the kidney, manifested by either: Pathological abnormalities or Markers of kidney damage (including abnormalities in the composition of the blo od or urine or abnormalities in imaging tests) . Performing Organization Address City/State/Zipcode Phone Number [facility] CLIA: [id number] [place] [address] [place] [address] SURGICAL PATHOLOGY EXAM (03/18/2020 3:16 PM CDT) Case Report Surgical Pathology Case: [id number] [facility] Authorizing Provider: Tato Moore MD Collected: 03/18/2020 1516 SERVICES Ordering Location: [facility] OR Received: 03/18/2020 4223 Department Pathologist: Des Pond MD PHD Specimen: LEG, LEFT, BE LOW KNEE, left leg BKA Final Diagnosis [facility] Aarti Morales. 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 Clinical Left foot pain [facility] Information [M79.672] SERVICES Gross Description Specimen A is received fresh labeled with the patient's name, [facility] number, "leg, left, below knee, left leg BKA" and consists of an amputated left BKA (heel-to-toe: 28.0 cm in length, heal to posterior sk [facility] in and soft tissue resection margin: 20.0 cm in length) with 5 grossly unremarkable, nail-bearing toes. The anterior skin resection margin extends 10.0 cm proximal from the posterior skin and soft tissu SERVICES e resection margin. The tibi al bone resection margin is 34.5 cm in length and the fibular resection margin extends 4.0 cm proximal from the tibial resection margin. The specimen is surface by t an-brown, hairbearing, slightly edematous skin with a blue and red demonic cartoon face tattoo on the medial and lateral aspect of the leg. There is a brown-black, dusky and necrotic to focally ulcerate d area (10 x 6.0 cm) with epidermal slippage, located on the postero-lateral, medial and plantar aspect of the heel, 13.0 cm from the posterior skin resection margin. The ulcerated to mummified a javier is sectioned to reveal variegated yellow to red, necrotic tissue with yellow-green, purulent exudate which grossly involves the underlying calcaneus bone. The vascular bu ndles are dissected to revea l approximately 30% stenosis in the peroneal artery, approximately 50% stenosis in the posterior tibial artery, and no identifiable stenosis of the anterior tibial and dorsal is pedis arteries. The remai jovon soft tissue of the leg is grossly unremarkable. [facility] Judge sections are submitted in A1-A8, post decalcification of A8. Ink code: Blue anterior tibial vascular bundle, red posterior tibial vascular bundle, orange peroneal artery, uninked-dorsalis pedis Section code: A1: Anterior skin and soft tissue resection margin, en face, consumer sales representative A2: Posterior skin soft tissue resection margin, en fa ce, consumer sales representative A3: Marrow at the tibial bone resection margin, repres entative A4: Vascular resection margins, en face A5: Vascular bundles, consumer sales representative A6: Ulcerated, consumer sales representative A7: Brown-black necrotic area, consumer sales representative A8: Calcaneal bone subjacent to necrotic area, represe ntative [facility] Morrison, Path A Student Embedded Images [facility] SERVICES Specimen Tissue - LEG, LEFT, BELOW KNEE Performing Organization Address City/State/Zipcode Phone Number [facility] CLIA: [id number] [place] [address] [place] [address] Prepare Packed RBC (in units), 2 Units (03/18/2020 2:52 PM CDT) Cross Match Result Compatible LAB ISBT Blood Type Code 5100 LAB Unit Blood Type O Pos LAB Unit Number [id number] LAB Blood Expiration Date & LAB Time Status Information Issued LAB Product Identification Red Blood Cells LAB Product Code [id number] LAB Comment: Performed at [facility] Services - [place] [address] Toll Free: [phone] CLIA No. [id number] Cross Match Result Compatible LAB ISBT Blood Type Code 5100 LAB Unit Blood Type O Pos LAB Unit Number [id number] LAB Blood Expiration Date & LAB Time Status Information Issued LAB Product Identification Red Blood Cells LAB Product Code [id number] LAB Comment: Performed at [facility] Services - [place] [address] Toll Free: [phone] CLIA No. [id number] Specimen Performing Organization Address [facility] Phone Number [facility] POCT GLUCOSE (AUTOMATED) (03/18/2020 11:49 AM CDT) Pathologist Sig nature POCT GLU 154 (H) 70 - 110 mg/dL [facility] Specimen Blood Performing Organization Address [facility] Phone Number [facility] CLIA: [id number] [place] [address] [place] [address] PHOSPHORUS (03/18/2020 9:30 AM CDT) Pathologist Sig nature PHOSPHORUS 3.1 2.5 - 5.0 mg/dL [facility] SERVICES Specimen Blood - ARM, LEFT Performing Organization Address [facility] Phone Number [facility] CLIA: [id number] [place] [phone] [place] [address] MAGNESIUM (03/18/2020 9:30 AM CDT) Pathologist Sig nature MAGNESIUM 1.9 1.7 - 2.4 mg/dL [facility] SERVICES Specimen Blood - ARM, LEFT Performing Organization Address [facility] Phone Number [facility] CLIA: [id number] [place] [address] [place] [address] BASIC METABOLIC PANEL (NA, K, CL, CO2, GLUCOSE, BUN, CREATININE, CA) (03/18/2020 9:30 AM CDT) Pathologist Sig nature NA 135 135 - 145 [facility] mmol/L SERVICES K 4.1 3.5 - 5.0 [facility] mmol/L SERVICES CL 108 98 - 108 mmol/L [facility] SERVICES CO2 TOTAL 18 (L) 23 - 31 mmol/L [facility] SERVICES AGAP 9 2 - 16 [facility] SERVICES BUN 16 7 - 23 mg/dL [facility] SERVICES GLUCOSE 150 (H) 70 - 110 mg/dL [facility] SERVICES CREATININE 0.86 0.60 - 1.25 [facility] mg/dL SERVICES CALCIUM 7.6 (L) 8.6 - 10.6 [facility] mg/dL SERVICES eGFR Calculation 90.4 mL/min/1.73m2 [facility] (Non- SERVICES Georgian) eGFR Calculation 109.6 mL/min/1.73m2 [facility] () SERVICES Specimen Blood - ARM, LEFT Narrative Performed At Association of Glomerular Filtration Rate (GFR) and St aging [facility] SERVICES of Kidney Disease* + + +------- ------ + | GFR (mL/min/1.73 m2) | With Kidney Damage | Gene cliftonout Kidney Damage + + +------- ------ + | >90 | Stage one | Normal + + +------- ------ + | 60-89 | Stage two | Decreased GFR + + +------- ------ + | 30-59 | Stage three | Stage three + + +------- ------ + | 15-29 | Stage four | Stage four + + +------- ------ + | <15 (or dialysis) | Stage five | Stage five + + +------- ------ + *Each stage assumes the associated GFR level has been in effect for at least three months. Stages 1 to 5, wit h or without kidney disease, indicate chronic kidney disease. Notes: Determination of stages one and two (with eGFR >59mL/min/1.73 m2) requires estimation of kidney damag e for at least three months as defined by structural or func tional abnormalities of the kidney, manifested by either: Pathological abnormalities or Markers of kidney damage (including abnormalities in the composition of the blo od or urine or abnormalities in imaging tests) . Performing Organization Address City/State/Zipcode Phone Number [facility] CLIA: [id number] [place] [address] [place] [address] CBC WITH DIFF (03/18/2020 9:30 AM CDT) WBC 22.55 (H) 4.20 - 10.70 [facility] 10*3/L SERVICES RBC 2.74 (L) 4.26 - 5.52 [facility] 10*6/L SERVICES HGB 7.8 (L) 12.2 - 16.4 [facility] g/dL SERVICES HCT 23.0 (L) 38.4 - 49.3 % [facility] SERVICES MCV 83.9 81.7 - 95.6 fL [facility] SERVICES MCH 28.5 26.1 - 32.7 pg [facility] SERVICES MCHC 33.9 31.2 - 35.0 [facility] g/dL SERVICES RDW-SD 46.5 38.5 - 51.6 fL [facility] SERVICES RDW-CV 15.2 12.1 - 15.4 % [facility] SERVICES PLT 396 (H) 150 - 328 [facility] 10*3/L SERVICES MPV 9.6 (L) 9.8 - 13.0 fL [facility] SERVICES NRBC/100 WBC 0.0 0.0 - 10.0 /100 [facility] WBCs SERVICES NRBC x10^3 <0.01 10*3/L [facility] SERVICES GRAN MAT (NEUT) % 80.8 % [facility] IMM GRAN % 6.50 % [facility] LYMPH % 5.9 % [facility] MONO % 6.0 % [facility] SERVICES EOS % 0.6 % [facility] SERVICES BASO % 0.2 % [facility] SERVICES GRAN MAT x10^3(ANC) 18.20 (H) 1.99 - 6.95 [facility] 10*3/uL SERVICES IMM GRAN x10^3 1.46 (H) 0.00 - 0.06 [facility] 10*3/uL SERVICES LYMPH x10^3 1.34 1.09 - 3.23 [facility] 10*3/uL SERVICES MONO x10^3 1.36 (H) 0.36 - 1.02 [facility] 10*3/uL SERVICES EOS x10^3 0.14 0.06 - 0.53 [facility] 10*3/uL SERVICES BASO x10^3 0.05 0.01 - 0.09 [facility] 10*3/uL SERVICES DOHLE BODIES Present (A) [facility] REACT LYMPHS Rare [facility] SERVICES Specimen Blood - ARM, LEFT Performing Organization Address City/State/Zipcode Phone Number [facility] CLIA: [id number] [place] [address] [place] [address] POCT GLUCOSE (AUTOMATED) (03/18/2020 7:48 AM CDT) Pathologist Sig nature POCT GLU 170 (H) 70 - 110 mg/dL [facility] Specimen Blood Performing Organization Address [facility] Phone Number [facility] CLIA: [id number] [place] [address] [place] [address] POCT GLUCOSE (AUTOMATED) (03/18/2020 3:46 AM CDT) Pathologist Sig nature POCT GLU 183 (H)Comment: 70 - 110 mg/dL [facility] Notified Provider HOSPITAL Specimen Blood Performing Organization Address [facility] Phone Number [facility] CLIA: [id number] [place] [address] [place] [address] POCT GLUCOSE (AUTOMATED) (03/17/2020 11:55 PM CDT) Pathologist Sig nature POCT GLU 189 (H)Comment: 70 - 110 mg/dL [facility] Notified Provider HOSPITAL Specimen Blood Performing Organization Address [facility] Phone Number [facility] CLIA: [id number] [place] [address] [place] [address] Type and Screen - ONCE TENZIN (03/17/2020 10:20 PM CDT) Pathologist Sig nature ABO & RH O POSITIVE LAB Comment: Performed at [facility] Services - [facility] Blood Bank [address] [place] [address] Toll Free: [phone] CLIA No. [id number] IAT Negative LAB Comment: Performed at [facility] - [facility] Blood Bank [address] [place] [address] Toll Free: [phone] CLIA No. [id number] Specimen VENOUS Performing Organization Address City/[facility] Phone Number [facility] POCT GLUCOSE (AUTOMATED) (03/17/2020 10:19 PM CDT) Pathologist Sig nature POCT GLU 169 (H) 70 - 110 mg/dL [facility] Specimen Blood Performing Organization Address City/[facility] Phone Number [facility] CLIA: [id number] [place] [address] [address] [facility] POCT GLUCOSE (AUTOMATED) (03/17/2020 8:38 PM CDT) Pathologist Sig [facility] POCT GLU 170 (H) 70 - 110 mg/dL [facility] Specimen Blood Performing Organization Address City/[facility] Phone Number [facility] CLIA: [id number] [place] [address] [address] [facility] POCT GLUCOSE (AUTOMATED) (03/17/2020 12:00 PM CDT) Pathologist Sig [facility] POCT GLU 148 (H)Comment: 70 - 110 mg/dL [facility]ORATORY Specimen Blood Performing Organization Address [facility] Phone Number [facility] CLIA: [id number] [place] [address] POCT GLUCOSE (AUTOMATED) (03/17/2020 7:53 AM CDT) Pathologist [facility] POCT GLU 167 (H)Comment: 70 - 110 mg/dL [facility]ORATORY Specimen Blood Performing Organization Address [facility] Phone Number [facility] CLIA: [id number] [place] [address] ACTIVATED PARTIAL THRMPLAS AMARILIS (03/17/2020 4:06 AM CDT) Pathologist Sig [facility] APTT Patient 67 (H) 23 - 38 Seconds [facility] Specimen Blood - LINE, VENOUS Narrative Performed At The [facility] patient population mean normal value [facility] for aPTT is 30 seconds. Performing Organization Address [facility] Phone Number [facility] CLIA: [id number] [place] [address] Vancomycin Trough Level - Draw within 30 minutes prior to 4TH dose. (03/17/2020 4:02 AM CDT) Pathologist Sig [facility] VANCO TROUGH 5.0 (L) 10.0 - 20.0 ug/mL [facility] Specimen Blood - LINE, VENOUS Narrative Performed At Toxic Range: >20 ug/mL [facility] 15-20 ug/mL is recommended for severe infection or when Vancomycin MILLICENT is greater than or equal to 2. Performing Organization Address City/State/Zipcode Phone Number [facility] CLIA: [id number] [place] [address] CBC with Differential (03/17/2020 4:02 AM CDT) Pathologist [facility] WBC 23.65 (H) 4.20 - 10.70 [facility] 10*3/L [facility] RBC 2.86 (L) 4.26 - 5.52 [facility] 10*6/L [facility] HGB 8.0 (L) 12.2 - 16.4 g/dL [facility] HCT 24.1 (L) 38.4 - 49.3 % [facility] MCV 84.3 81.7 - 95.6 fL [facility] MCH 28.0 26.1 - 32.7 pg [facility] MCHC 33.2 31.2 - 35.0 g/dL [facility] RDW-SD 43.5 38.5 - 51.6 fL [facility] RDW-CV 14.1 12.1 - 15.4 % [facility] PLT 334 (H) 150 - 328 [facility] 10*3/L [facility] MPV 10.3 9.8 - 13.0 fL [facility] NRBC/100 WBC 0.0 0.0 - 10.0 /100 [facility] WBCs [facility] NRBC x10^3 <0.01 10*3/L [facility] SEG % 65 33 - 76 % [facility] BAND % 29 (H) 0 - 1 % [facility] MYELO % 2 (H) <=0 % [facility] LYMPH % 4 (L) 14 - 54 % [facility] ANC 22.23 (H) 1.99 - 6.95 [facility] 10*3/uL [facility] PLT ESTIMATE Increased (A) Normal [facility] Specimen Blood - LINE, VENOUS Performing Organization Address City/State/Zipcode Phone Number [facility] CLIA: [id number] [place] [address] Basic Metabolic Panel (NA, K, CL, CO2, GLUCOSE, BUN, CREATININE, CA) (03/17/2020 4:02 AM CDT) Pathologist [facility] nature NA 134 (L) 135 - 145 [facility] mmol/L [facility] K 3.9 3.5 - 5.0 [facility] mmol/L [facility] CL 109 (H) 98 - 108 mmol/L [facility] CO2 TOTAL 16 (L) 23 - 31 mmol/L [facility] AGAP 9 2 - 16 [facility] BUN 32 (H) 7 - 23 mg/dL [facility] GLUCOSE 176 (H) 70 - 110 mg/dL [facility] CREATININE 1.16 0.60 - 1.25 [facility] mg/dL [facility] CALCIUM 7.6 (L) 8.6 - 10.6 [facility] mg/dL [facility] eGFR Calculation 64.0 mL/min/1.73m2 [facility] ([facility] LABORATORY Georgian) eGFR Calculation 77.6 mL/min/1.73m2 [facility] () [facility] Specimen Blood - LINE, VENOUS Narrative Performed At [facility] of Glomerular [...] abnormalities in imaging tests). Performing Organization Address [facility] Phone Number [facility] CLIA: [id number] [place] [address] POCT GLUCOSE (AUTOMATED) (03/17/2020 3:50 AM CDT) Pathologist Sig nature POCT GLU 179 (H) 70 - 110 mg/dL [facility] Specimen Blood Performing Organization Address [facility] Phone Number [facility] CLIA: [id number] [place] [address] POCT GLUCOSE (AUTOMATED) (03/16/2020 11:55 PM CDT) Pathologist Sig nature POCT GLU 207 (H) 70 - 110 mg/dL [facility] Specimen Blood Performing Organization Address [facility] Phone Number [facility] CLIA: [id number] [place] [address] ACTIVATED PARTIAL THRMPLAS AMARILIS (03/16/2020 11:02 PM CDT) Pathologist Sig nature APTT Patient 87 (H) 23 - 38 Seconds [facility] Specimen Blood - LINE, VENOUS Narrative Performed At The [facility] patient population mean normal value [facility] for aPTT is 30 seconds. Performing Organization Address [facility] Phone Number [facility] CLIA: [id number] [place] [address] [address] POCT GLUCOSE (AUTOMATED) (03/16/2020 9:09 PM CDT) Pathologist Sig nature POCT GLU 232 (H) 70 - 110 mg/dL [facility] Specimen Blood Performing Organization Address [facility] Phone Number [facility] CLIA: [id number] [place] [address] Type and Screen - ONCE Routine (03/16/2020 6:00 PM CDT) Pathologist Sig nature ABO & RH O Positive LAB Comment: Performed at [facility] Laboratory Services - [facility] Blood Bank [address] [place] [phone] Toll Free: [phone] CLIA No. [id number] IAT Negative LAB Comment: Performed at [facility] Laboratory Services - [facility] Blood Bank [address] [place] [phone] Toll Free: [phone] CLIA No. [id number] Specimen Blood - VENOUS Performing Organization Address City/[facility] Phone Number [facility] POCT GLUCOSE (AUTOMATED) (03/16/2020 4:50 PM CDT) Pathologist Sig nature POCT GLU 232 (H) 70 - 110 mg/dL [facility] Specimen Blood Performing Organization Address [facility] Phone Number [facility] CLIA: [id number] [place] [address] [place] [address] BASIC METABOLIC PANEL (NA, K, CL, CO2, GLUCOSE, BUN, CREATININE, CA) (03/16/2020 4:26 PM CDT) NA 134 (L) 135 - 145 [facility] mmol/L [facility] K 3.5 3.5 - 5.0 [facility] mmol/L [facility] CL 106 98 - 108 mmol/L [facility] CO2 TOTAL 15 (L) 23 - 31 mmol/L [facility] AGAP 13 2 - 16 [facility] BUN 37 (H) 7 - 23 mg/dL [facility] GLUCOSE 226 (H) 70 - 110 mg/dL [facility] CREATININE 1.37 (H) 0.60 - 1.25 [facility] mg/dL [facility] CALCIUM 7.4 (L) 8.6 - 10.6 [facility] mg/dL [facility] eGFR Calculation 52.8 mL/min/1.73m2 [facility] ([facility] LABORATORY Georgian) eGFR Calculation 64.0 mL/min/1.73m2 [facility] () [facility] Specimen Blood - VENOUS Narrative Performed [...] tests). Performing Organization Address City/State/Zipcode Phone Number [facility] CLIA: [id number] [place] [address] aPTT (for use with Heparin Drip) (03/16/2020 4:26 PM CDT) [facility] nature APTT Patient 101 (HH) 23 - 38 Seconds [facility] Specimen Blood - VENOUS Narrative Performed At The [facility] patient population mean normal value [facility] for aPTT is 30 seconds. Performing Organization Address City/State/Zipcode Phone Number [facility] CLIA: [id number] [place] [address] US RETROPERITONEAL COMPLETE (03/16/2020 12:06 PM CDT) Specimen Impressions Performed At Essentially normal renal ultrasound exce pt for right interpolar region PACS/VR/DOSE cyst. Partially decompressed urinary bladder w ith circumferentially thickened shirley. Findings can be seen with cystitis and/or degre e of chronic urinary bladder outlet obstruction. Correlate wi th UA. Partially visualized diffuse hepatic steatosis. Narrative Performed At ULTRASOUND RENAL PACS/VR/DOSE INDICATION: KORY COMPARISON: 11/17/2019. FINDINGS: Right kidney measures 12.8 x 6.7 x 5.7 cm. There is no rmal renal cortical echogenicity and corticomedullary differ entiation. No hydronephrosis or renal calculi. Right interpolar region cyst measuring 2.4 x 2.1 x 1.9 cm. There is qualitatively normal perfusion on color doppler interrogation. Left kidney measures 11.9 x 6.5 x 5.3 cm . There is normal renal cortical echogenicity and corticomedullary differ entiation. No hydronephrosis or renal calculi. There is qualitatively no rmal perfusion on color doppler interrogation. Partially decompressed urinary bladder is circumferent ially thickened out of proportion to degree of distention. Urinary bladder wall measures 8 mm in thickness. Partially visualized liver appears diffu sely steatotic. Procedure Note [facility], Radiant Results Inft User - 2019 12:52 PM CDT ULTRASOUND RENAL INDICATION: KORY COMPARISON: 11/17/2019. FINDINGS: Right kidney measures 12.8 x 6.7 x 5.7 c m. There is normal renal cortical echogenicity and corticomedullary differ entiation. No hydronephrosis or renal calculi. Right interpolar region c yst measuring 2.4 x 2.1 x 1.9 cm. There is qualitatively normal perfusion on color doppler interrogation. Left kidney measures 11.9 x 6.5 x 5.3 cm . There is normal renal cortical echogenicity and corticomedullary differ entiation. No hydronephrosis or renal calculi. There is qualitatively no rmal perfusion on color doppler interrogation. Partially decompressed urinary bladder i s circumferentially thickened out of proportion to degree of distention. U rinary bladder wall measures 8 mm in thickness. Partially visualized liver appears diffu sely steatotic. IMPRESSION Essentially normal renal ultrasound exce pt for right interpolar region cyst. Partially decompressed urinary bladder w ith circumferentially thickened shirley. Findings can be seen with cystiti s and/or degree of chronic urinary bladder outlet obstruction. Correlate wi th UA. Partially visualized diffuse hepatic irene atosis. Performing Organization Address City/State/Zipcode Phone Number PACS/VR/DOSE POCT GLUCOSE (AUTOMATED) (03/16/2020 11:21 AM CDT) Pathologist Sig nature POCT GLU 246 (H)Comment: 70 - 110 mg/dL [facility] Notified Provider HOSPITAL LABORATORY Specimen Blood Performing Organization Address City/[facility]/Zipcode Phone Number [facility] CLIA: [id number] [place], [place] [address] LABORATORY [address] URINALYSIS (03/16/2020 10:50 AM CDT) Pathologist Sig nature APPEARANCE Hazy (A) Clear [facility] COLOR Yellow Yellow [facility] PH 5.0 4.8 - 8.0 [facility] SP GRAVITY 1.021 1.003 - 1.030 [facility] GLU U QUAL 150 mg/dL (A) Normal [facility] BLOOD Negative Negative [facility] KETONES Negative Negative [facility] PROTEIN 30 mg/dL (A) Negative [facility] UROBILIN Normal Normal [facility] BILIRUBIN Negative Negative [facility] NITRITE Negative Negative [facility] LEUK PETER Negative Negative [facility] RBC/HPF 8 (H) 0 - 3 HPF [facility] WBC/HPF 7 (H) 0 - 5 HPF [facility] BACTERIA Negative Negative [facility] AMORPHOUS Rare Rare HPF [facility] HYAL CAST 17 (H) <=2 LPF [facility] Specimen Urine - URINE, CLEAN CATCH Performing Organization Address [facility] Phone Number [facility] CLIA: [id number] [place] [address] PHOSPHORUS (03/16/2020 9:20 AM CDT) Pathologist Sig nature PHOSPHORUS 4.0 2.5 - 5.0 mg/dL [facility] Specimen Blood - ARM, LEFT Performing Organization Address [facility] Phone Number [facility] CLIA: [id number] [place], [place] [id number] LABORATORY [address] MAGNESIUM (03/16/2020 9:20 AM CDT) Pathologist Sig nature MAGNESIUM 2.0 1.7 - 2.4 mg/dL [facility] Specimen Blood - ARM, LEFT Performing Organization Address [facility] Phone Number [facility] CLIA: [id number] [place], [place] [id number] LABORATORY [address] aPTT (03/16/2020 9:20 AM CDT) Pathologist Sig nature APTT Patient 38 23 - 38 Seconds [facility] Specimen Blood - ARM, LEFT Narrative Performed At The [facility] patient population mean normal value [facility] for aPTT is 30 seconds. Performing Organization Address [facility] Phone Number [facility] CLIA: [id number] [place] [address] LABORATORY [address] [facility] Prothrombin Time (PT) / INR (03/16/2020 9:20 AM CDT) PROTIME PATIENT 17.9 (H) 12.0 - 14.7 [facility] Seconds [facility] LABORATORY INR 1.6Comment: Normal [facility] INR <1.1; Warfarin [facility] Therapeutic range LABORATORY 2.0 to 3.0 or 2.5 to 3.5, depending upon the indications. Specimen Blood - ARM, LEFT Performing Organization Address [facility] Phone Number [facility] CLIA: [id number] [place] [address] LABORATORY [address] [facility] BASIC METABOLIC PANEL (NA, K, CL, CO2, GLUCOSE, BUN, CREATININE, CA) (03/16/2020 9:20 AM CDT) NA 135 135 - 145 [facility] mmol/L [facility] LABORATORY K 2.7 (LL) 3.5 - 5.0 [facility] mmol/L [facility] LABORATORY CL 107 98 - 108 mmol/L [facility] CO2 TOTAL 17 (L) 23 - 31 mmol/L [facility] AGAP 11 2 - 16 [facility] BUN 39 (H) 7 - 23 mg/dL [facility] GLUCOSE 259 (H) 70 - 110 mg/dL [facility] CREATININE 1.46 (H) 0.60 - 1.25 [facility] mg/dL [facility] LABORATORY CALCIUM 7.3 (L) 8.6 - 10.6 [facility] mg/dL [facility] LABORATORY eGFR Calculation 49.1 mL/min/1.73m2 [facility] ([facility] LABORATORY Georgian) eGFR Calculation 59.5 mL/min/1.73m2 [facility] () HOSPITAL LABORATORY Specimen Blood - ARM, LEFT Narrative Performed At [facility] of Glomerular Filtration Rate (GFR) [facility] LAB[facility]AT[facility] and Staging of Kidney Disease* [...] abnormalities in imaging tests). Performing Organization Address City/[facility] Phone Number [facility] CLIA: [id number] [place] [address] POCT GLUCOSE (AUTOMATED) (03/16/2020 7:53 AM CDT) Pathologist Sig nature POCT GLU 286 (H)Comment: 70 - 110 mg/dL [facility] Notified Provider HOSPITAL LABORATORY Specimen Blood Performing Organization Address City/[facility] Phone Number [facility] CLIA: [id number] [place] [address] WOUND CULTURE (03/16/2020 4:48 AM CDT) Wound Culture 1+ Skin avel [facility] SERVICES Wound Culture 3+ Escherichia coli [facility] SERVICES Wound Culture 1+ Enterococcus [facility] LAB[facility] faecalisComment: SERVICES Previous preliminary verified result was Enterococcus species on 03/17/2020 at 0932 CDT Gram stain Numerous Gram positive [facility] cocci SERVICES Gram stain Few Gram positive [facility] bacilli SERVICES Gram stain Moderate PMNs or [facility] Mononuclear cells SERVICES observed Specimen Swab - FOOT, LEFT Organism Antibiotic Method Susceptibility Escherichia coli Amoxacillin/Clavulanic SUSCEPTIBILITY TESTING 4 : Susceptible acid Escherichia coli Ampicillin SUSCEPTIBILITY TESTING >=32: Re sistant Escherichia coli Ampicillin/Sulbactam SUSCEPTIBILITY TESTING >=3 2: Resistant Escherichia coli Cefazolin SUSCEPTIBILITY TESTING 16: Susc eptible Escherichia coli Cefotaxime SUSCEPTIBILITY TESTING <=1: Ashley ceptible Escherichia coli Ciprofloxacin SUSCEPTIBILITY TESTING <=0.25: Susceptible Escherichia coli Ertapenem SUSCEPTIBILITY TESTING <=0.5: S usceptible Escherichia coli Gentamicin SUSCEPTIBILITY TESTING <=1: Ashley ceptible Escherichia coli Levofloxacin SUSCEPTIBILITY TESTING <=0.12: Susceptible Escherichia coli Piperacillin/Tazobacta SUSCEPTIBILITY TESTING > =128: Resistant m Escherichia coli Trimethoprim/Sulfameth SUSCEPTIBILITY TESTING < =20: Susceptible oxazole Enterococcus faecalis Ampicillin SUSCEPTIBILITY TESTING <=2 : Susceptible Enterococcus faecalis Vancomycin SUSCEPTIBILITY TESTING 1: Susceptible Performing Organization Address City/State/Zipcode Phone Number [facility] SERVICES CLIA: [id number] [place] [address] [place] [address] XR CHEST 1 VW (03/16/2020 3:48 AM CDT) Specimen Impressions Performed At PACS/VR/DOSE No acute cardiopulmonary process. Preliminary Report Dictated by Resident: Nataly Gaffney I, Mango Thomas MD., have review ed this study and agree with the above report. Narrative Performed At EXAM: XR CHEST 1 VW 03/16/2020 3:36 AM PACS/VR/DOSE HISTORY: 59 years-old Male with SOB TECHNIQUE: Portable erect AP view of the chest. COMPARISON: X-ray chest 02/04/2020, CT ch est angiogram 02/03/2020 FINDINGS: Lines and tubes: Dual-chamber pacemaker lead tips project over the right atrium and right ventricle. Sternotomy wires are uncha nged. Proximal left subclavian artery vascular stent is noted. Cholecystec rylie and left upper quadrant surgical clips visualized. Cardiomediastinal: The cardiomediastinal silhouette is unchanged. Lungs and pleura: Suboptimal inspiratory volumes resulting in bronchial vascular crowding. Lungs are otherwise c lear. No focal consolidation, pneumothorax. No discernible pneumothora x or pleural effusion. Musculoskeletal: No acute osseous abnorm ality. Procedure Note [facility], Radiant Results Inft User - 2019 8:18 AM CDT EXAM: XR CHEST 1 VW 03/16/2020 3:36 AM HISTORY: 59 years-old Male with SOB TECHNIQUE: Portable erect AP view of the chest. COMPARISON: X-ray chest 02/04/2020, CT ch est angiogram 02/03/2020 FINDINGS: Lines and tubes: Dual-chamber pacemaker lead tips project over the right atrium and right ventricle. Sternotomy w ires are unchanged. Proximal left subclavian artery vascular stent is note d. Cholecystectomy and left upper quadrant surgical clips visualized. Cardiomediastinal: The cardiomediastinal silhouette is unchanged. Lungs and pleura: Suboptimal inspiratory volumes resulting in bronchial vascular crowding. Lungs are otherwise c lear. No focal consolidation, pneumothorax. No discernible pneumothora x or pleural effusion. Musculoskeletal: No acute osseous abnorm ality. IMPRESSION No acute cardiopulmonary process. Preliminary Report Dictated by Resident: Nataly Gaffney I, Mango Thomas MD., have reviewe d this study and agree with the above report. 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 Skin defect in the m edial heel with extensive soft tissue swelling and gas, including deep to the plantar fascia. Intra-articular gas in the subtalar joint may represen t septic arthritis. Preliminary Report Dictated by Resident: Sergio Thomas I, Lexi Palacio MD., have reviewed this study an d agree with the above report. Narrative Performed At CT FOOT LEFT WO CONTRAST PACS/VR/DOSE HISTORY: 59 years-old; Male; Osteomyelit is suspected, foot swelling, diabetic COMPARISON: Left foot radiographs 2019 TECHNIQUE: CT imaging of the left foot tissues and bon es is obtained in 3.0 mm intervals without IV contrast. Sagittal and coronal reconstructions are generated and reviewed. BONE: Bone erosions and periosteal reaction ar e seen along the posterior calcaneus. Extensive intramedullary gas is noted throu ghout the calcaneus. There is no acute fracture or dislocation. Well-cortic ated osseous fragment distal to the medial malleolus (2:27) is likely due to a remote avulsion fracture. SOFT TISSUES: Significant soft tissue swelling and extensive subcuta neous gas are noted along the plantar aspect of the midfoot and hindfoot w ith a skin defect in the medial aspect of the heel. Soft tiss ue gas is also noted deep to the plantar fascia as well as the middle art icular surface of the calcaneus. Vascular calcifications are seen. Procedure Note [facility], Radiant Results Inft User - 2019 7:[address] FOOT LEFT WO CONTRAST HISTORY: 59 years-old; Male; Osteomyelit is suspected, foot swelling, diabetic COMPARISON: Left foot radiographs 2019 TECHNIQUE: CT imaging of the left foot t issues and bones is obtained in 3.0 mm intervals without IV contrast. Sagitt al and coronal reconstructions are generated and reviewed. BONE: Bone erosions and periosteal reaction ar e seen along the posterior calcaneus. Extensive intramedullary gas is noted throughout the calcaneus. There is no acute fracture or dislocatio n. Well-corticated osseous fragment distal to the medial malleolus (2:27) is likely due to a remote avulsion fracture. SOFT TISSUES: Significant soft tissue swelling and ext ensive subcutaneous gas are noted along the plantar aspect of the midfoot and hindfoot with a skin defect in the medial aspect of the heel. Soft tiss ue gas is also noted deep to the plantar fascia as well as the middle art icular surface of the calcaneus. Vascular calcifications are seen. 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 Skin defect in the m edial heel with extensive soft tissue swelling and gas, including deep to the plantar fascia. Intra-articular gas in the subtalar join t may represent septic arthritis. Preliminary Report Dictated by Resident: Sergio Thomas I, Lexi Palacio MD., have reviewed this study and agree with the above report. Performing Organization Address City/State/Zipcode Phone Number PACS/VR/DOSE LAB ONLY COVID INTERPRETATION (03/16/2020 2:33 AM CDT) COVID DMT Interpretation/Recommendations: [facility] Interpretation Tests (PCR) for Active Infection by COVID-19 Virus: SERVICES This patient has tested nega tive for the COVID-19 virus more than three times with no prior history of a positive result. It is possible that at least one of these tests is a false negative, which occur s with nasopharyngeal sample s. This occurs because the virus is predominantly in the lung and out of reach of the nasopharyngeal swab. However, based upon greater than three negative tests with no prior positive results, the patient is unlikely to have an active infection. Tests for IgM and/or IgG Antibodies to COVID-19 Virus: A. A test for IgM antibody to the COVID-19 virus is likely to be highly informative at this time. IgM antibodies to the COVID-19 virus identified in a high performing test, usually an THEO or chemilu minescence-based assay, shomatt ld appear in most patients who are truly infected within approximately a week from the onset of symptoms, and in nearly all patients 2 to 3 weeks after symptoms begin. If the high performing IgM test is positive, even if the initial PCR test for active infection was negative, it is highly probable the patient has been infected with the virus at some point. A repeat PCR test to determine if the patient has recovered from the infection would be important to perform if the IgM [id number] antibody test is positive. B. A test for IgG antibodi es to the COVID-19 virus was not performed and is also likely to be informative. The sample for the IgG antibody test should be collected 2 or more weeks post onset of sympto ms. It is the IgG antibodies that can confer long-term immunity to infectious agents. However, at this time, it is not known if the production of IgG antibodies indicates whether the patient is immune t o future infections with the COVID-19 virus. It is also not known how long IgG antibodies to the COVID-19 virus persist, and therefore the length of immunity to future COVID-19 infections. C. Although it is uncommon , some patients cannot ever mount an antibody response to infectious agents, such as COVID-19. If there are persistently negative results for IgM and IgG antibodies, this may be the explanation. Disclaimer: These interpretation comment s are based upon aggregate data pooled from the [facility] EPIC medical record including both current and prior COVID-19 related testing results for the following tests: SARS-CoV-2 PCR, SARS-CoV-2 Rapid ID NO W, CoV-2 IgM, and CoV-2 IgG. These interpretations are autopopulated into EPIC based on computerized algorithms matching an interpretation code number to the patient's set of test results. While a clini uriel pathologist evaluates the combinations for clinical accuracy, clinical correlation is recommended as it may not take into account very remote prior testing. Furthermore, it does not consider testing a patient may have had outside of the [facility] system. Additionally, it should be n oted that the computerized algorithm treats the results for PCR testing and Rapid ID NOW testing (also PCR) synonymously, and thus, refers to both testing methodologies as PC R tests. Given that the sens itivity of [facility]'s Rapid ID NOW testing platform is analogous to PCR-based methods, for most patients this has no significant implications for clinical decision making. Howeve r, if a patient with a negat nena result for Rapid ID NOW continues to have a clinical presentation consistent with COVID-19 infection, negative results should be treated as presumptive negative and a new specimen should be tested with alternative PCR molecu lar test. COVID Results SARS-CoV-2 Rapid ID NOW (no units) [facility] Date Value SERVICES 03/16/2020 Not Detected 02/03/2020 Not Detected 11/16/2019 Not Detected 09/17/2019 Not Detected Specimen Swab - NASOPHARYNGEAL SWAB Performing Organization Address City/State/Zipcode Phone Number [facility] SERVICES CLIA: [id number] [place] [address] [place] [address] COVID-19 (ID NOW RAPID TESTING) (03/16/2020 2:33 AM CDT) SARS-CoV-2 Rapid ID Not Detected Not Detected [facility] Specimen Swab - NASOPHARYNGEAL SWAB Narrative Performed At ID NOW COVID-19 Assay is an isothermal nucleic [facility] acid amplification test intended for the qualitative detection of nucleic acid from SARS-CoV-2 viral RNA in nasopharyngeal ([employer]) specimens. It is used under Emergency Use [...] testing if clinically indicated. Performing Organization Address [facility]/Zipcode Phone Number [facility] CLIA: [id number] [place] [address] [place] [address] GRAM POSITIVE BLOOD PATHOGENS DNA PROBE-ANAEROBIC (03/16/2020 12:57 AM CDT) Gram Positive No organisms included [facility] Blood Pathogens in the Blood DNA Probe SERVICES by DNA test panel were Comment-Anaerobic detected. Further identification workup to be performed by culture testing methods. Specimen Blood - VENOUS Performing Organization Address [facility] Phone Number [facility] SERVICES CLIA: [id number] [place] [address] [place] [address] BLOOD CULTURE WORKUP (03/16/2020 12:57 AM CDT) Blood Culture Escherichia coli [facility] Workup Comment: SERVICES [place] morphologically consistent with organism above For susceptibility results, refer to culture # - [id number] Blood Culture Anaerococcus species [facility] Workup SERVICES Gram stain Isolated from aerobic [facility] bottle Gram negative HOSPITAL bacilli LABORATORY Gram stain Isolated from anaerobic [facility] bottle Gram positive SERVICES cocciComment: This is an appended report. These results have been appended to a previously preliminary verified report. Specimen Blood - VENOUS Performing Organization Address City/[facility]/Zipcode Phone Number [facility] SERVICES CLIA: [id number] [place] [address] [place] [address] CLIA: [id number] [place], [place] [address] [phone] [place] [address] GRAM NEGATIVE BLOOD PATHOGENS DNA PROBE-ANAEROBIC (03/16/2020 12:57 AM CDT) Escherichia coli Positive (A) Negative, See [facility] Comment/Narrati SERVICES ve Specimen Blood - VENOUS Narrative Performed At See blood culture result for additional information. [facility] SERVICES Testing included eight identification and six resistan ce marker targets. Performing Organization Address City/[facility]/Zipcode Phone Number [facility] SERVICES CLIA: [id number] [place] [address] [place] [address] BLOOD CULTURE WORKUP (03/16/2020 12:57 AM CDT) Blood Culture Escherichia [facility] Workup coliComment: SERVICES Organism identified by DNA probe Gram stain Isolated from [facility] anaerobic bottle HOSPITAL Gram negative LABORATORY bacilli Gram stain Isolated from [facility] aerobic bottle Gram SERVICES negative bacilliComment: This is an appended report. These results have been appended to a previously preliminary verified report. Specimen Blood - VENOUS Organism Antibiotic Method Susceptibility Escherichia coli Amoxacillin/Clavulanic SUSCEPTIBILITY TESTING 8 : Susceptible acid Escherichia coli Ampicillin SUSCEPTIBILITY TESTING >=32: Re sistant Escherichia coli Ampicillin/Sulbactam SUSCEPTIBILITY TESTING >=3 2: Resistant Escherichia coli Cefazolin SUSCEPTIBILITY TESTING <=4: Ashley ceptible Escherichia coli Cefotaxime SUSCEPTIBILITY TESTING <=1: Ashley ceptible Escherichia coli Ciprofloxacin SUSCEPTIBILITY TESTING <=0.25: Susceptible Escherichia coli Ertapenem SUSCEPTIBILITY TESTING <=0.5: S usceptible Escherichia coli Gentamicin SUSCEPTIBILITY TESTING <=1: Ashley ceptible Escherichia coli Levofloxacin SUSCEPTIBILITY TESTING <=0.12: Susceptible Escherichia coli Piperacillin/Tazobactam SUSCEPTIBILITY TESTING <=4: Susceptible Escherichia coli Trimethoprim/Sulfamethoxa SUSCEPTIBILITY TESTIN G <=20: Susceptible zole Performing Organization Address [facility] Phone Number [facility] CLIA: [id number] [place] [address] [place] [address] CLIA: [id number] [place] [address], LABORATORY [address] URIC ACID (03/16/2020 12:57 AM CDT) Pathologist Sig nature URIC ACID 10.1 (H) 3.6 - 8.0 mg/dL [facility] SERVICES Specimen Blood - VENOUS Performing Organization Address City/[facility] Hospital/Zipcode Phone Number [facility] CLIA: [id number] [place] [address] [place] [address] FERRITIN SERUM (03/16/2020 12:57 AM CDT) Pathologist Sig [facility] FERRITIN 255.0 18.0 - 464.0 ng/mL [facility] Specimen Blood - VENOUS Narrative Performed At Biotin has been reported to cause a negative [facility] bias, interpret results relative to patient's use of biotin. Performing Organization Address [facility] Phone Number [facility] CLIA: [id number] [place] [address] IRON (03/16/2020 12:57 AM CDT) Pathologist Sig [facility] IRON 11 (L) 50 - 160 ug/dL [facility] Specimen Blood - VENOUS Performing Organization Address [facility] Phone Number [facility] CLIA: [id number] [place] [address] TROPONIN I (03/16/2020 12:57 AM CDT) [facility] TROPONIN I 0.020 <=0.034 ng/mL [facility] Specimen Blood - VENOUS Narrative Performed At Equal or Less than 0.034 ng/ml---Normal [facility] Note: Cardiac troponin begins to [...] patient's use of biotin. Performing Organization Address [facility] Phone Number [facility] CLIA: [id number] [place] [address] N-TERMINAL PRO-BNP (03/16/2020 12:57 AM CDT) Pathologist [facility] NT-proBNP 2,680 (H) <=125 pg/mL [facility] Specimen Blood - VENOUS Narrative Performed At Biotin has been reported to cause a negative [facility] bias, interpret results relative to patient's use of biotin. Performing Organization Address City/[facility] Phone Number [facility] CLIA: [id number] [place] [address] [address] THYROID STIMULATING HORMONE (03/16/2020 12:57 AM CDT) Pathologist Sig nature TSH 1.63 0.45 - 4.70 mIU/L [facility] Specimen Blood - VENOUS Performing Organization Address City/[facility] Phone Number [facility] CLIA: [id number] [place] [address] LABORATORY [address] [facility] LOW-DENSITY LIPOPROTEIN, DIRECT (03/16/2020 12:57 AM CDT) Pathologist Sig nature dLDL Chol 42 <130 mg/dL [facility] Specimen Blood - VENOUS Performing Organization Address City/[facility] Phone Number [facility] CLIA: [id number] [place] [address] [place] [address] SEDIMENTATION RATE (03/16/2020 12:57 AM CDT) Pathologist Sig nature ESR 35 (H) 0 - 10 mm/HR [facility] Specimen Blood - VENOUS Performing Organization Address [facility] Phone Number [facility] CLIA: [id number] [place] [address] LAB[address]ORY [address] LIPID PANEL ([id number])(TOTAL CHOLESTEROL, TRIGLYCERIDES, HDL) (03/16/2020 12:57 AM CDT) CHOL 174 120 - 200 [facility] mg/dL HOSPITAL [facility]ORY HDL 13 (L) >40 mg/dL [facility] HDLC RATIO 13.4 (H) <=5.0 [facility] TRIG 490 (H) 30 - 170 mg/dL [facility] LDL CHOL Comment: Unable to [facility] calculate LDL due to HOSPITAL LABORATORY elevated triglyceride level greater than 400 mg/dL. VLDL 98 (H) 5 - 60 mg/dL [facility] Specimen Blood - VENOUS Performing Organization Address City/[facility]/Zipcode Phone Number [facility] CLIA: [id number] [place] [address] GLYCOSYLATED HEMOGLOBIN (A1C) (03/16/2020 12:57 AM CDT) Pathologist Sig nature HGB A1C 10.8 (H) 4.0 - 6.0 % [facility] Specimen Blood - VENOUS Narrative Performed At %A1C (NGSP) Interpretation (ADA) [facility] 4.8-5.6 Normal or (Non-Diabetic Ra nge) 5.7-6.4 Increased Risk (Pre-Diabet ic) >6.5 Diabetes Indicated Performing Organization Address City/[facility] Phone Number [facility] CLIA: [id number] [place] [address] LABORATORY [address] [facility] COMP. METABOLIC PANEL ([id number]) (03/16/2020 12:57 AM CDT) NA 134 (L) 135 - 145 [facility] mmol/L [facility] K 4.1 3.5 - 5.0 [facility] mmol/L [facility] CL 100 98 - 108 mmol/L [facility] CO2 TOTAL 16 (L) 23 - 31 mmol/L [facility] AGAP 18 (H) 2 - 16 [facility] BUN 41 (H) 7 - 23 mg/dL [facility] GLUCOSE 382 (H) 70 - 110 mg/dL [facility] CREATININE 1.74 (H) 0.60 - 1.25 [facility] mg/dL [facility] TOTAL BILI 0.6 0.1 - 1.1 mg/dL [facility] CALCIUM 8.6 8.6 - 10.6 [facility] mg/dL [facility] T PROTEIN 6.5 6.3 - 8.2 g/dL [facility] ALBUMIN 3.1 (L) 3.5 - 5.0 g/dL [facility] ALK PHOS 196 (H) 34 - 122 U/L [facility] ALTv 61 (H) 5 - 50 U/L [facility] AST(SGOT) 63 (H) 13 - 40 U/L [facility] eGFR Calculation 40.1 mL/min/1.73m2 [facility] ([facility] LABORATORY Georgian) eGFR Calculation 48.6 mL/min/1.73m2 [facility] () [facility] Specimen Blood - VENOUS Narrative Performed At [facility] Glomerular Filtration Rate (GFR) YALE NEW [...] tests). Performing Organization Address City/State/Zipcode Phone Number [facility] CLIA: [id number] [place] [address] CBC WITH DIFF (03/16/2020 12:57 AM CDT) [facility] nature WBC 19.31 (H) 4.20 - 10.70 [facility] 10*3/L [facility] RBC 3.51 (L) 4.26 - 5.52 [facility] 10*6/L [facility] HGB 9.9 (L) 12.2 - 16.4 [facility] g/dL [facility] HCT 28.5 (L) 38.4 - 49.3 % [facility] MCV 81.2 (L) 81.7 - 95.6 fL [facility] MCH 28.2 26.1 - 32.7 pg [facility] MCHC 34.7 31.2 - 35.0 [facility] g/dL [facility] RDW-SD 38.5 38.5 - 51.6 fL [facility] RDW-CV 13.0 12.1 - 15.4 % [facility] PLT 339 (H) 150 - 328 [facility] 10*3/L [facility] MPV 10.6 9.8 - 13.0 fL [facility] NRBC/100 WBC 0.0 0.0 - 10.0 /100 [facility] WBCs [facility] NRBC x10^3 <0.01 10*3/L [facility] GRAN MAT (NEUT) % 82.8 % [facility] IMM GRAN % 3.40 % [facility] LYMPH % 7.1 % [facility] MONO % 4.9 % [facility] EOS % 1.2 % [facility] BASO % 0.6 % [facility] GRAN MAT x10^3(ANC) 16.00 (H) 1.99 - 6.95 [facility] 10*3/uL [facility] IMM GRAN x10^3 0.65 (H) 0.00 - 0.06 [facility] 10*3/uL [facility] LYMPH x10^3 1.38 1.09 - 3.23 [facility] 10*3/uL [facility] MONO x10^3 0.94 0.36 - 1.02 [facility] 10*3/uL [facility] EOS x10^3 0.23 0.06 - 0.53 [facility] 10*3/uL [facility] BASO x10^3 0.11 (H) 0.01 - 0.09 [facility] 10*3/uL [facility] Specimen Blood - VENOUS Performing Organization Address City/State/Zipcode Phone Number [facility] CLIA: [id number] [place], [place] [id number] LABORATORY [address] Blood Culture - Peripheral # 2 (03/16/2020 12:57 AM CDT) Blood Culture positive. See Blood Culture Workup for additional information. (AA) No growth [facility] Culture-Aerobic Comment: HOSPITAL Previous preliminary verifie d result was Culture In Progress on 03/16/2020 at 0501 CDT LABORATORY Previous preliminary verifie d result was No growth at 24 hours on 03/17/2020 at 0201 CDT Blood Culture positive. See Blood Culture Workup for additional information. (AA) No growth [facility] Culture-Anaerobic Comment: SERVICES Previous preliminary verifie d result was Culture In Progress on 03/16/2020 at 0501 CDT Previous preliminary verifie d result was No growth at 24 hours on 03/17/2020 at 1451 CDT Specimen Blood - VENOUS Performing Organization Address City/[facility] Phone Number [facility] CLIA: [id number] [place] [address] [place] [address] CLIA: [id number] [place] [address], LABORATORY [address] [place] [address] Drive Blood Culture - Peripheral # 1 (03/16/2020 12:57 AM CDT) Blood Culture positive. No growth [facility] Culture-Aerobic See Blood Culture HOSPITAL Workup for LABORATORY additional information. (AA)Comment: Previous preliminary verified result was Culture In Progress on 03/16/2020 at 1459 CDT Blood Culture positive. No growth [facility] Culture-Anaerobic See Blood Culture HOSPITAL Workup for LABORATORY additional information. (AA)Comment: Previous preliminary verified result was Culture In Progress on 03/16/2020 at 1458 CDT Specimen Blood - VENOUS Performing Organization Address [facility] Phone Number [facility] CLIA: [id number] [place] [address] [place] [address] CLIA: [id number] [place] [address], LABORATORY [address] Lactic Acid Whole Blood (03/16/2020 12:56 AM CDT) Pathologist Sig nature LACTIC ACID 4.72 mmol/L [facility] Specimen Blood - ARM, LEFT Performing Organization Address [facility] Phone Number [facility] CLIA: [id number] [place] [address] XR FOOT <3 VW LEFT (03/16/2020 12:28 AM CDT) Specimen Impressions Performed At PACS/VR/DOSE Skin defect and subcutaneous gas in the heel with susp ected osteomyelitis of the posterior calcaneus. Moderate midfoot osteoarthrosis. Preliminary Report Dictated by Resident: Lexi Gibson MD., have reviewed this study an d agree with the above report. Narrative Performed At XR FOOT <3 VW LEFT PACS/VR/DOSE HISTORY: 59 years-old Male; osteo / heel COMPARISON: Left foot radiographs FINDINGS: Radiographs of the left foot demonstrate soft tissue swelling and subcutaneous gas in the plantar aspect of the hindfoot with a skin defect identified in the heel. Focal osteopenia and bone eros ions are noted along the posterior aspect of the calcaneus. T here is no acute fracture or dislocation. Prominent talonavicular dorsal osteophyto sis and subchondral cystic changes are noted. Diabetes type vascular calci fications are noted. Procedure Note [facility], Radiant Results Inft User - 2019 6:30 AM CDT XR FOOT <3 VW LEFT HISTORY: 59 years-old Male; osteo / heel COMPARISON: Left foot radiographs FINDINGS: Radiographs of the left foot demonstrate soft tissue swelling and subcutaneous gas in the plantar aspect o f the hindfoot with a skin defect identified in the heel. Focal osteopenia and bone erosions are noted along the posterior aspect of the calcaneus. T here is no acute fracture or dislocation. Prominent talonavicular giorgio marjorie osteophytosis and subchondral cystic changes are noted. Diabetes type vascular calcifications are noted. IMPRESSION Skin defect and subcutaneous gas in the heel with suspected osteomyelitis of the posterior calcaneus. Moderate midfoot osteoarthrosis. Preliminary Report Dictated by Resident: Lexi Gibson MD., have reviewed this study and agree with the above report. 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 Essential hypertension Unspecified essential hypertension Other hyperlipidemia Pacemaker Cardiac pacemaker in situ PAF (paroxysmal atrial fibrillation) Atrial fibrillation Stroke Unspecified cerebral artery occlusion wi th cerebral infarction Type 2 diabetes mellitus without complic ation, without long-term current use of insulin Elevated brain natriuretic peptide (BNP) level Other nonspecific findings on examinatio n of blood Chronic diastolic congestive heart failu re Chronic diastolic heart failure documented in this encounter Administered Medications Medication Order MAR Action Action Date Dose Rate Site acetaminophen (TYLENOL) tablet Given 03/22/2020 5:12 AM [employer] SCIENCES TEACHER 650 mg 650 mg 650 mg, Oral, Q6H, First dose (after last modification) on Annie 03/19/20 at 1200, Until Discontinued, Routine Given 03/21/2020 6:48 PM CDT 650 mg Given 03/21/2020 6:27 AM CDT 650 mg apixaban (ELIQUIS) tablet 5 mg Given 03/26/2020 7:47 AM [employer] SCIENC[employer] TEACHER 5 mg 5 mg, Oral, BID, First dose on 03/22/20 at 2000, Until Discontinued, Routine Given 03/25/2020 8:52 PM [employer] SCI[employer] TE[employer]ER 5 mg Given 03/25/2020 8:05 AM [employer] SCIENC[employer] TEACHER 5 mg aspirin chewable tablet 81 mg Given 03/26/2020 7:47 AM [employer] SCIENCES TEACHER 81 mg 81 mg, Oral, DAILY, First dose on 03/16/20 at 0900, Until Discontinued, Routine Given 03/25/2020 8:05 AM [employer] SCIENCES TE[employer]ER 81 mg Given 03/24/2020 8:28 AM [employer] SCI[employer] TE[employer]ER 81 mg atorvastatin (LIPITOR) tablet 40 mg Given 03/25/2020 8:51 PM [employer] SCIENCES TEACHER 40 mg 40 mg, Oral, QHS, First dose on 03/16/20 at 2100, Until Discontinued, Routine Given 03/24/2020 8:10 PM [employer] SCI[employer] TEACHER 40 mg Given 03/23/2020 8:24 PM [employer] SCI[employer] TE[employer]ER 40 mg clopidogreL (PLAVIX) tablet 75 mg Given 03/26/2020 7:47 AM LIFE SCIENCES TEACHER 75 mg 75 mg, Oral, DAILY, First dose on 03/23/20 at 0900, Until Discontinued, Routine Given 03/25/2020 8:05 AM [employer] SCIENCES TEACHER 75 mg Given 03/24/2020 8:28 AM [employer] SCIENC[employer] TEACHER 75 mg furosemide (LASIX) tablet 40 mg Given 03/25/2020 8:05 AM LIFE SCIENCES TEACHER 40 mg 40 mg, Oral, QAM+PM, First dose on 03/22/20 at 1700, Until Discontinued, Routine Given 03/24/2020 5:50 PM [employer] SCI[employer] TE[employer]ER 40 mg Given 03/24/2020 8:28 AM [employer] SCI[employer] TE[employer]ER 40 mg heparin (1,000 unit/mL, 10 mL vial) FOR REBOLUSING, Starting Mon03/16/20 at 0911, Until Discontinued, Routine, Dosing based on aPTT testing parameters (refer to continuous heparin drip order), HYDROcodone-acetaminophen (NORCO) 10-325 Given 03/22/2020 9 :22 AM [employer] SCIENC[employer] TE[employer]ER 1 tablet mg tablet 1 tablet 1 tablet, Oral, Q6HPRN, Starting Mon03/16/20 at 1156, Until Discontinued, Routine, Pain (scale 4-6) Given 03/22/2020 3:34 AM [employer] SCI[employer] TEACHER 1 tablet Given 03/21/2020 8:23 PM CDT 1 tablet insulin NPH (HUMULIN N) injection Given 03/26/2020 8:10 AM [employer] SCI[employer] TE[employer]ER 5 Units Abdomen-SC 5 Units 5 Units, Subcutaneous, QAM+HS, First dose on Mon03/16/20 at 0900, Until Discontinued, Routine Given 03/25/2020 8:51 PM [employer] SCI[employer] TE[employer]ER 5 Units Abdo men-SC Given 03/25/2020 8:06 AM [employer] SCIENCES TEACHER 2 Units Abdo men-SC KCL (KLOR-CON M20) tablet 20 mEq Given 03/23/2020 7:36 AM [employer] SCI[employer] TE[employer]ER 20 mEq 20 mEq, Oral, DAILY, First dose on Mon03/23/20 at 0900, Until Discontinued, Routine lactobacillus acidophilus (ACIDOPHILLUS) Given 03/26/2020 1 :04 PM [employer] SCI[employer] TEACHER 1 tablet 25 million cell -100 mg captab 1 tablet 1 tablet, Oral, TID, First dose on Mon03/16/20 at 0800, Until Discontinued, Routine Given 03/26/2020 7:47 AM [employer] SCI[employer] TEACHER 1 tablet Given 03/25/2020 8:51 PM [employer] SCI[employer] TE[employer]ER 1 tablet levoFLOXacin (LEVAQUIN) tablet 750 mg Given 03/26/2020 5:16 PM [employer] SCI[employer] TEACHER 750 mg 750 mg, Oral, Q24H ABX, First dose on Annie 03/26/20 at 1645, Until Discontinued, TENZIN, Reason for Anti-Infective: Documented Infection, Documented Infection Site: Skin / Soft Tissue, Duration of Therapy: Other (see Comments) levothyroxine (SYNTHROID) tablet 50 mcg Given 03/26/2020 5:32 AM [employer] SCI[employer] TE[employer]ER 50 mcg 50 mcg, Oral, QAM-0600, First dose on Mon03/16/20 at 0600, Until Discontinued, Routine Given 03/25/2020 5:58 AM [employer] SCI[employer] TE[employer]ER 50 mcg Given 03/24/2020 5:18 AM [employer] SCI[employer] TE[employer]ER 50 mcg lidocaine 1% (PF) (XYLOCAINE) injection 5 mL 5 mL, Subcutaneous, PRN, Starting Mon03/16/20 at 1156 , Until Discontinued, Routine, Local anesthesia lisinopriL (PRINIVIL,ZESTRIL) tablet 2.5 mg Given 03/26/2020 7:47 AM [employer] SCI[employer] TE[employer]ER 2.5 mg 2.5 mg, Oral, DAILY, First dose on Mon03/23/20 at 0900, Until Discontinued, Routine Given 03/25/2020 8:05 AM [employer] SCI[employer] TE[employer]ER 2.5 mg Given 03/24/2020 8:28 AM [employer] SCI[employer] TE[employer]ER 2.5 mg metoprolol succinate XL (TOPROL XL) tablet 25 Given 7:35 AM [employer] TE[employer]ER 25 mg mg 25 mg, Oral, BID, First dose on Mon03/22/20 at 2000, Until Discontinued, Routine morpHINE injection 2 mg Given 03/26/2020 4:45 PM [employer] TE[employer]ER 2 mg 2 mg, Slow IV Push, Q4HPRN, Starting Mon03/16/20 at 0624, Until Discontinued, Routine, Pain (scale 7-10) Given 03/26/2020 11:05 AM [employer] TE[employer]ER 2 mg Given 03/26/2020 5:32 AM [employer] SCI[employer] TEACHER 2 mg NaCl 0.9% (NS) injection 10 mL 10 mL, Slow IV Push, PRN, Starting Mon03/16/20 at 115 6, Until Discontinued, Routine, door liner helper ondansetron (ZOFRAN (PF)) injection 4 mg Given 03/18/2020 4:08 PM CDT 4 mg 4 mg, Slow IV Push, Q6HPRN, Starting Mon03/16/20 at 0233, Until Discontinued, Routine, Nausea and Vomiting (N/V) Given 03/17/2020 5:59 AM CDT 4 mg Given 03/16/2020 12:19 PM CDT 4 mg pantoprazole (PROTONIX) EC tablet 20 mg Given 03/26/2020 7:47 AM [employer] TE[employer]ER 20 mg 20 mg, Oral, DAILY, First dose on Mon03/16/20 at 0900, Until Discontinued, Routine Given 03/25/2020 8:05 AM [employer] TE[employer]ER 20 mg Given 03/24/2020 8:29 AM [employer] TE[employer]ER 20 mg Sliding Scale Insulin-Regular + Given 03/26/2020 4:45 PM [employer] TE[employer]ER 4 Units Abdomen-SC Fsbg Testing Subcutaneous, Q4H, First dose (after last modification) on Mon03/16/20 at 1200, Until Discontinued, Routine Given 03/26/2020 12:06 AM [employer] SCI[employer] TEACHER 2 Units Abdo men-SC Given 03/25/2020 8:50 PM [employer] SCI[employer] TE[employer]ER 4 Units Abdo men-SC venlafaxine (EFFEXOR) tablet 75 mg Given 03/26/2020 7:47 AM [employer] SCI[employer] TEACHER 75 mg 75 mg, Oral, BID, First dose on Mon03/16/20 at 0800, Until Discontinued, Routine Given 03/25/2020 8:51 PM [employer] SCI[employer] TE[employer]ER 75 mg Given 03/25/2020 8:05 AM [employer] SCI[employer] TEACHER 75 mg Medication Order MAR Action Action Date Dose Rate Site clindamycin in 5 % dextrose Given 03/16/2020 4:04 AM CDT 900 mg (CLEOCIN) 900 mg/50 mL IV piggyback RTU 900 mg 900 mg, IV Piggyback, Q8H ABX, First dose on Mon03/16/20 at 0400, Until Discontinued, 50 mL, Reason for Anti-Infective: Documented Infection, Documented Infection Site: Skin / Soft Tissue, Duration of Therapy: 7 days, Restricted use approved by: ADC PROVIDER FENTanyl PF (SUBLIMAZE (PF)) injection 25 Given 03/16/2020 4:00 AM CDT 25 mcg mcg 25 mcg, Slow IV Push, Q4HPRN, Starting Mon03/16/20 at 0303, Until Mon03/16/20 at 0625, Routine, Pain (scale 7-10) heparin 1000 unit/mL injection Soln Given 03/16/2020 10:54 AM CD T 5,000 Units 5,000 Units 5,000 Units, IV Push, ONCE, 1 dose, Mon03/16/20 at 0915, Routine heparin 25,000 Units/250 mL (Premixed Bag) in 0.45 % Restarted 1 1,050 10.5 NS 8:29 AM CDT Units/hr mL/hr 1,300 Units/hr (13 mL/hr), IV Infusion, TITRATE, Parameters in Admin. Instr., Starting Mon03/16/20 at 0925, CAUTION - If LMWH given in ER, AVOID bolus and start dose/drip 12 hours after ER dosage. Must program rate using programmable infusion pump. Check with the ordering provider first prior to any administration should the patient be on existing/additional anticoagulant therapy. DO NOT ADJUST INITIAL BOLUS OR INITIAL INFUSION RATE Range, Dosing and Testing: FOR [facility] ONLY - aPTT < 35: Bolus 5000 units, increase rate 300 units/hr - aPTT 35-44: Bolus 3000 units, increase rate 200 units/hr - aPTT 45-54: Increase rate 100 units/hr - aPTT 55-85: NO CHANGE - aPTT 86-95: Decrease rate 100 units/hr - aPTT 96-120: Hold 30 minutes, decrease rate 150 units/hr - aPTT > 120: Hold 60 minutes, decrease rate 200 units/hr Check aPTT 6 hours after initiation, then Q6H after every change, aPTT Q12H once therapeutic levels are reached. FOR [facility] and [facility] ONLY - aPTT < 40: Bolus 5000 units, increase rate 300 units/hr - aPTT 40-49: Bolus 3000 units, increase rate 200 units/hr - aPTT 50-59: Increase rate 100 units/hr - aPTT 60-85: NO CHANGE - aPTT 86-95: Decrease rate 100 units/hr - aPTT 96-120: Hold 30 minutes, decrease rate 150 units/hr - aPTT > 120: Hold 60 minutes, decrease rate 200 units/hr Check aPTT 6 hours after initiation, then Q6H after every change, aPTT Q12H once therapeutic levels are reached., New Bag 03/17/2020 12:21 AM CDT 1,050 Units/hr 10.5 mL/hr Restarted 03/16/2020 5:30 PM CDT 1,150 Units/hr 11.5 mL/hr HYDROcodone-acetaminophen (NORCO 5) 5-325 Given 2019 4:58 AM CDT 1 tablet mg tablet 1 tablet 1 tablet, Oral, Q6HPRN, Starting Mon03/16/20 at 0434, Until Mon03/16/20 at 0625, Routine, Pain (scale 4-6) KCL (KLOR-CON M20) tablet 40 mEq Given 03/16/2020 12:18 PM CDT 40 mEq 40 mEq, Oral, Q2H, 2 doses, First dose on Mon03/16/20 at 1000, Last dose on Mon03/16/20 at 1200, Routine Given 03/16/2020 11:05 AM CDT 40 mEq levoFLOXacin (LEVAQUIN) tablet 750 mg Given 03/25/2020 8:05 AM [employer] SCI[employer] TEACHER 750 mg 750 mg, Oral, Q24H ABX, 5 doses, First dose on Mon03/21/20 at 0745, Last dose on Mon03/25/20 at 0745, TENZIN, Reason for Anti-Infective: Documented Infection, Documented Infection Site: Skin / Soft Tissue, Duration of Therapy: 7 days Given 03/24/2020 8:29 AM [employer] SCI[employer] TEACHER 750 mg Given 03/23/2020 7:36 AM [employer] SCI[employer]ES TEACHER 750 mg meropenem (MERREM) 500 mg in NaCl 0.9% (NS) Given 02/21 12:09 AM CDT 500 mg 100 mL MINI-BAG 500 mg, IV Piggyback, Administer over 60 Minutes, Q8H ABX, First dose on Mon03/16/20 at 0800, Until Discontinued, TENZIN, Restricted use approved by: ADC PROVIDER, Reason for Anti-Infective: Documented Infection, Documented Infection Site: Skin / Soft Tissue, Duration of Therapy: 7 days Given 03/20/2020 5:17 PM CDT 500 mg Given 03/20/2020 8:34 AM CDT 500 mg morpHINE injection 4 mg Given 03/16/2020 1:01 AM CDT 4 mg 4 mg, Slow IV Push, ONCE, 1 dose, Mon03/16/20 at 0100, STAT NaCl 0.9% (NS) 1000 mL + KCL 20 mEq New Bag 03/19/2020 2:51 AM CDT 150 mL/hr IV Infusion, at 150 mL/hr, CONTINUOUS, Starting 03/16/20 at 1145, Until Annie 03/19/20 at 0926, Routine New Bag 03/18/2020 5:35 AM CDT 150 mL/hr New Bag 03/17/2020 12:24 AM CDT 150 mL/hr NaCl 0.9% (NS) bolus infusion New Bag 03/16/2020 6:11 AM CDT 1,000 mL 999 mL/hr 1,000 mL at 999 mL/hr, 1,000 mL, IV Piggyback, ONCE, 1 dose, Mon03/16/20 at 0615, STAT NaCl 0.9% (NS) bolus infusion New Bag 03/16/2020 8:52 AM CDT 1,000 mL 999 mL/hr 1,000 mL at 999 mL/hr, 1,000 mL, IV Piggyback, ONCE, 1 dose, Mon03/16/20 at 1000, STAT NaCl 0.9% (NS) bolus infusion New Bag 03/16/2020 1:05 AM CDT 2,382 mL 999 mL/hr 2,382 mL at 999 mL/hr, 2,382 mL (30 mL/kg 79.4 kg), IV Piggyback, ONCE, 1 dose, Mon03/16/20 at 0100, STAT NaCl 0.9% (NS) IV infusion 1,000 New Bag 03/16/2020 4:04 AM C DT 1,000 mL 100 mL/hr mL at 100 mL/hr, IV Infusion, CONTINUOUS, Starting Mon03/16/20 at 0345, Until Mon03/16/20 at 1044, Routine ondansetron (ZOFRAN (PF)) injection 4 mg Given 03/16/2020 1:01 AM CDT 4 mg 4 mg, Slow IV Push, ONCE, 1 dose, Mon03/16/20 at 0100, TENZIN piperacillin-tazobactam (ZOSYN) injection Given 03/16/2020 1:10 AM CDT 3.375 g 3.375 g 3.375 g, IV Piggyback, Q6H, First dose on Mon03/16/20 at 0000, Until Discontinued, TENZIN, Reason for Anti-Infective: Empiric Therapy for Suspected Infection, Empiric Therapy Site: Skin / Soft tissue, Duration of therapy: 72 hours vancomycin 1250 mg in NS 250 mL RTU IV Given 03/21/2020 6:27 AM CDT 1,250 mg Piggyback 1,250 mg 1,250 mg (rounded from 1,191 mg = 15 mg/kg 79.4 kg), IV Piggyback, Q24H ABX, First dose on 03/16/20 at 0345, Until Discontinued, Reason for Anti-Infective: Documented Infection, Documented Infection Site: Skin / Soft Tissue, Duration of Therapy: 7 days Given 03/20/2020 3:10 AM CDT 1,250 mg Given 03/19/2020 2:51 AM CDT 1,250 mg documented in this encounter Additional Health Concerns Infection Onset Date Last Indicated Resolved Time Contact- MRSA 08/18/2019 08/18/2019 COVID-19 Rule Out 03/16/2020 03/16/2020 03/16/2020 3: 08 AM CDT documented as of this encounter Insurance Payer Benefit Plan / Subscriber ID Effective Dates Phone Addre ss Type Group [employer] [id number] 2018-Present Medicare Adv spring HMO (Home) [place] [address] documented as of this encounter Advance Directives Name Relationship Healthcare Agent Communication Relationship Rose Desouza Mother Health Care Agent
--- OUTSIDE RECORDS SUMMARY | 2020-04-20 10:14 | XMS REPORT | Summary of Care ---
:1960 Author Organization [facility] Address [address] [place] [address] Care Team Providers Name Role Phone Nkia Martin Primary Care Provider [facility] Insurance Hmo Nena Aviles DO [place] Operator Reason for Visit Reason Comments Transition Of Care Encounter Details Date Type Department Care Team Description 03/27/2020 Transition of Care [facility] [address] [address] Allergies No Known Allergiesdocumented as of this encounter (statuses as of 03/27/2020) Medications Medication Sig Dispensed Refills Start Date [...] tabletIndications: mouth daily. Coronary artery disease involving [place] coronary artery of [place] heart with angina pectoris levothyroxine 50 mcg Take 1 tablet by 30 tablet 0 02/05/2020 Active tabletIndications: mouth every Coronary artery morning. disease involving [place] coronary artery of [place] heart with angina pectoris tamsulosin 0.4 mg 24 Take 1 capsule by 30 capsule 0 02/05/2020 Active hr mouth daily. capsuleIndications: Coronary artery disease involving [place] coronary artery of [place] heart with angina pectoris venlafaxine 75 mg Take 1 tablet by 30 tablet 0 02/05/2020 Active tabletIndications: mouth 2 (two) Coronary artery times daily. disease involving [place] coronary artery of [place] heart with angina pectoris glipiZIDE 5 mg Take 1 tablet by 60 tablet 0 02/05/2020 Active tabletIndications: mouth 2 (two) Coronary artery times daily before disease involving breakfast and [place] coronary dinner. artery of [place] heart with angina pectoris metoprolol succinate Take 1 tablet by 60 tablet 1 02/05/2020 Active XL 25 mg 24 hr mouth 2 (two) tabletIndications: times daily. Coronary artery disease involving [place] coronary artery of [place] heart with angina pectoris furosemide 40 mg Take 1 tablet by 60 tablet 0 02/05/2020 Active tabletIndications: mouth every Coronary artery morning and disease involving evening. [place] coronary artery of [place] heart with angina pectoris KCL 20 mEq Take 1 tablet by 30 tablet 1 02/06/2020 A ctive tabletIndications: mouth daily. Coronary artery disease involving [place] coronary artery of [place] heart with angina pectoris atorvastatin 40 mg [...] as of this encounter (statuses as of 03/27/2020) Active Problems Problem Noted Date Osteomyelitis 03/16/2020 Preop cardiovascular exam 03/16/2020 Chronic diastolic congestive heart failure 03/16/2020 KALYN (acute kidney injury) 03/16/2020 Left foot pain 03/15/2020 Overview: Added automatically from request for erick glass [id number] Troponin I above reference range 02/05/2020 Pleural effusion 02/04/2020 Elevated brain natriuretic peptide (BNP) level Chest pain in adult 02/03/2020 Cellulitis of left foot 11/16/2019 Pacemaker 08/07/2019 PAF (paroxysmal atrial fibrillation) 08/07/2019 Abdominal pain 07/18/2019 Pacemaker malfunction 06/25/2019 Cellulitis 04/09/2019 Arteriovenous fistula of right femoral vessels 019 NSTEMI (non-ST elevated myocardial infarction) 019 Coronary artery disease involving [place] coronary chandan ry of [place] heart 01/17/2019 with angina pectoris Type 2 [...] as of this encounter (statuses as of 03/27/2020) Immunizations Name Administration Dates Next Due Influenza [...] Telephone Encounter - Rico Aleman RN - 03/27/2020 8:58 AM CST TRANSITIONAL CARE MANAGEMENT ASSESSMENT 03/27/2020 Ernie Rooney [id number] Ernie Rooney is a 59 year old /White male was admitted on 03/15/20 to [facility] AT [address] He was discharged on 03/26/20 with discharge disposition of HR- Routine Discharge. Admitting Physician: Tato Esquivel Discharge Diagnosis: FINAL DIAGNOSIS: (the reason, after study, for admitting the patient to the hospital): Infected left foot ulcer Linked Episodes Type: Episode: Status: Noted: Resolved: Last update: Updated by: TRANSITION OF CARE TCM Active 03/26/2020 03/27/2020 8:58 AM Rico Aleman, RN Comments: TCM [id number] outreach documentation: Discharge Assessment Chart Assessed: 03/27/20 Chart Reviewed - Post Discharge Call Deferred due to Change in Discharge Status.: Discharged to SNF(SNF location: [place] [address] () [phone] (F) [phone]) TCM Outreach Completed: 03/27/20 Future Appointments: Pending. OR PROJECT MANAGER documented in this encounter Plan of Treatment [...] of this encounter Implants Implanted Type Area Filing Writer Device 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 PACEMAKER [id number] / Assurity [id number] / Pacemaker Metal Bar-05/22/1994 Back Implanted: 05/22/1994 [...] Effective Dates Phone Addre ss Type Group [employer] [id number] 2018-Present Medicare Adv spring HMO documented as of this encounter Advance Directives Name Relationship Healthcare Agent Communication Relationship Rose Estrada Mother Health Care Agent
--- OUTSIDE RECORDS SUMMARY | 2020-04-20 10:14 | XMS REPORT | Summary of Care ---
:1960 Author Organization [facility] Address [address] [place] [address] Care Team Providers Name Role Phone Nika Martin Primary Care Provider [facility] Insurance Hmo Nena Aviles DO Special Procedures Technologist Reason for Visit Reason Comments Follow-up s/p left BKA (Routine) Status Reason Specialty Diagnoses / Referred By Referred To Procedures Contact Contact Authorized ESVIN-SURGERY / Diagnoses Osteomyelitis of left foot, unspecified type Tato Esquivel J ohtanya Surgery Procedures Discharge Follow-Up: Specialty Service E[facility]IN-SURGERY (Dr Esquivel); 2 Weeks MD Dilip Cherry MD [address] [place] [address] [place] [address] Phone: Fax: Encounter Details Date Type Department Care Team Description 04/09/2020 Office Visit [facility] Cancer Tato Esuqivelis, Center-General MD Dilip unspecified site, Surgery [address] [place] [address] unspecified type 2280 [facility] (Primary Dx) South, 2nd floor [place] [address] [place], [place] [phone] [id number] [phone] Allergies No Known Allergiesdocumented as of this encounter (statuses as of 04/09/2020) Medications Medication Sig Dispensed Refills Start Date [...] tabletIndications: mouth daily. Coronary artery disease involving [place] coronary artery of [place] heart with angina pectoris levothyroxine 50 mcg Take 1 tablet by 30 tablet 0 02/05/2020 Active tabletIndications: mouth every Coronary artery morning. disease involving [place] coronary artery of [place] heart with angina pectoris tamsulosin 0.4 mg 24 Take 1 capsule by 30 capsule 0 02/05/2020 Active hr mouth daily. capsuleIndications: Coronary artery disease involving [place] coronary artery of [place] heart with angina pectoris venlafaxine 75 mg Take 1 tablet by 30 tablet 0 02/05/2020 Active tabletIndications: mouth 2 (two) Coronary artery times daily. disease involving [place] coronary artery of [place] heart with angina pectoris glipiZIDE 5 mg Take 1 tablet by 60 tablet 0 02/05/2020 Active tabletIndications: mouth 2 (two) Coronary artery times daily before disease involving breakfast and [place] coronary dinner. artery of [place] heart with angina pectoris metoprolol succinate Take 1 tablet by 60 tablet 1 02/05/2020 Active XL 25 mg 24 hr mouth 2 (two) tabletIndications: times daily. Coronary artery disease involving [place] coronary artery of [place] heart with angina pectoris furosemide 40 mg Take 1 tablet by 60 tablet 0 02/05/2020 Active tabletIndications: mouth every Coronary artery morning and disease involving evening. [place] coronary artery of [place] heart with angina pectoris KCL 20 mEq Take 1 tablet by 30 tablet 1 02/06/2020 A ctive tabletIndications: mouth daily. Coronary artery disease involving [place] coronary artery of [place] heart with angina pectoris atorvastatin 40 mg [...] of at bedtime. left foot, unspecified type documented as of this encounter (statuses as of 04/09/2020) Active Problems Problem Noted Date Osteomyelitis 03/16/2020 Preop cardiovascular exam 03/16/2020 Chronic diastolic congestive heart failure 03/16/2020 KALYN (acute kidney injury) 03/16/2020 Left foot pain 03/15/2020 Overview: Added automatically from request for esvin glass [id number] Troponin I above reference range 02/05/2020 Pleural effusion 02/04/2020 Elevated brain natriuretic peptide (BNP) level 020 Chest pain in adult 02/03/2020 Cellulitis of left foot 11/16/2019 Pacemaker 08/07/2019 PAF (paroxysmal atrial fibrillation) 08/07/2019 Abdominal pain 07/18/2019 Pacemaker malfunction 06/25/2019 Cellulitis 04/09/2019 Arteriovenous fistula of right femoral vessels 019 NSTEMI (non-ST elevated myocardial infarction) 019 Coronary artery disease involving [place] coronary chandan ry of [place] heart 01/17/2019 with angina pectoris Type 2 [...] as of this encounter (statuses as of 04/09/2020) Immunizations Name Administration Dates Next Due Influenza [...] Sign Reading Time Taken Comments Blood Pressure 87/59 04/09/2020 2:13 PM FINANCIAL MANAGER Pulse 94 04/09/2020 2:13 PM FINANCIAL MANAGER Temperature - - Respiratory Rate - - Oxygen Saturation 97% 04/09/2020 2:13 PM FINANCIAL MANAGER Inhaled Oxygen Concentration - - Weight 74.4 kg (164 lb) 04/09/2020 2:13 PM FINANCIAL MANAGER Height 170.2 cm (5' 7") 04/09/2020 2:13 PM FINANCIAL MANAGER Body Mass Index 25.69 04/09/2020 2:13 PM FINANCIAL MANAGER documented in this encounter Progress Notes Lynette Read MD - 04/09/2020 2:00 PM CSTPOST OPERATIVE CLINIC NOTE Surgery Date:03/18/20 Type of Surgical Procedure Performed: Left BKA General status: good Patient reports pain is controlled and he is feeling generally well. He has not had fever. She denies any wound problems. Physical Exam (-)=Negative,(+)=Positive BP 133/79 (BP Location: Left arm, Patient Position: Sitting, BP CUFF SIZE: Adult Medium) | Pulse 70 | Temp 36.8 C (98.3 F) (Oral) | Ht 1.575 m (5' 2") | Wt 61.5 kg (135 lb 8 oz) | LMP (LMP Unknown) | SpO2 97% | BMI 24.78 kg/m General: alert and oriented x 4; no apparent distress HEENT: normocephalic atraumatic, extraocular movements intact Abdomen: soft and NT/ND Musculoskeletal: left BKA incision is c/d with no drainage, no sign of active infection Pathology A. LEFT LEG, BELOW KNEE, AMPUTATION: - ISCHEMIC GANGRENE WITH DERMAL ABSCESS FORMATION - VESSELS WITH SEVERE MEDIAL HYPERTROPHY AND LUMINAL STENOSIS - NO OSTEOMYELITIS IDENTIFIED - RESECTION MARGINS VIABLE Assessment/Diagnosis Ernie Rooney is a 59 year old male with PMH HTN, DM, HLD, stroke with residual left sided weakness s/p pacemaker, CAD s/p CABG 2002 and multiple PCI most recently this year, and paroxysmal a fib whounderwent left BKA 03/18/20 without intraoperative complication. He is doing fine post op. No sign of infection. Plan Stichs at the stump were removed (every other one) RTC in 2 weeks to remove the rest of the stitches Keep the area clean and dry. No more dressing is required Lynette Childers MD General Surgery. PGY2 NCIAL MANAGER documented in this encounter Plan of Treatment Date Type Specialty Care Team Description 04/23/2020 Office Visit Surgery Tato Esquivel MD [address] [place] [address] [phone] Health Maintenance Due Date Last Done Comments [...] this encounter Implants Implanted Type Area Director Of Collections Device 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 PACEMAKER [id number] / Assurity [id number] / Pacemaker Metal Bar-05/22/1994 Back Implanted: 05/22/1994 (Quantity not on file) Metal Bar-05/22/2002 Arm Implanted: 05/22/2002 (Quantity not on file) documented as of this encounter Results Not on filedocumented in this encounter Visit Diagnoses Diagnosis Osteomyelitis, unspecified site, unspeci fied type - Primary documented in this encounter Additional Health Concerns Infection Onset Date Last Indicated Resolved Time Contact- MRSA 08/18/2019 08/18/2019 documented as of this encounter Advance Directives Name Relationship Healthcare Agent Communication Relationship Rose Desouza Mother Health Care Agent
--- OUTSIDE RECORDS SUMMARY | 2020-04-20 10:14 | XMS REPORT | Summary of Care ---
:1960 Author Organization [facility] Address [address] [place] [address] Care Team Providers Name Role Phone Nika Martin Primary Care Provider [facility] Insurance Hmo Nena Aviles DO Dealer Support Technician Reason for Visit Reason Comments Follow-up s/p left BKA (Routine) Status Reason Specialty Diagnoses / Referred By Referred To Procedures Contact Contact Authorized ESVIN-SURGERY / Diagnoses Osteomyelitis of left foot, unspecified type Tato Esquivel J ohtanya Surgery Procedures Discharge Follow-Up: Specialty Service ESVIN-SURGERY (Dr Esquivel); 2 Weeks MD Dilip Cherry MD [address] [place] [address] [place] [address] Phone: Fax: Encounter Details Date Type Department Care Team Description 04/09/2020 Office Visit [facility] Cancer Tato Esquivelis, Center-General MD Dilip unspecified site, Surgery [address] [place] [address] unspecified type 2280 [facility] (Primary Dx) South, 2nd floor [place] [address] [place], [place] [phone] [address] [phone] Allergies No Known Allergiesdocumented as of this [...] tabletIndications: mouth daily. Coronary artery disease involving tribal coronary artery of tribal heart with angina pectoris levothyroxine 50 mcg Take 1 tablet by 30 tablet 0 02/05/2020 Active tabletIndications: mouth every Coronary artery morning. disease involving tribal coronary artery of tribal heart with angina pectoris tamsulosin 0.4 mg 24 Take 1 capsule by 30 capsule 0 02/05/2020 Active hr mouth daily. capsuleIndications: Coronary artery disease involving [place] coronary artery of tribal heart with angina pectoris venlafaxine 75 mg Take 1 tablet by 30 tablet 0 02/05/2020 Active tabletIndications: mouth 2 (two) Coronary artery times daily. disease involving tribal coronary artery of tribal heart with angina pectoris glipiZIDE 5 mg Take 1 tablet by 60 tablet 0 02/05/2020 Active tabletIndications: mouth 2 (two) Coronary artery times daily before disease involving breakfast and tribal coronary dinner. artery of tribal heart with angina pectoris metoprolol succinate Take 1 tablet by 60 tablet 1 02/05/2020 Active XL 25 mg 24 hr mouth 2 (two) tabletIndications: times daily. Coronary artery disease involving tribal coronary artery of tribal heart with angina pectoris furosemide 40 mg Take 1 tablet by 60 tablet 0 02/05/2020 Active tabletIndications: mouth every Coronary artery morning and disease involving evening. tribal coronary artery of tribal heart with angina pectoris KCL 20 mEq Take 1 tablet by 30 tablet 1 02/06/2020 A ctive tabletIndications: mouth daily. Coronary artery disease involving tribal coronary artery of tribal heart with angina pectoris atorvastatin 40 mg [...] Added automatically from request for esvin glass [id number] Troponin I above reference range 02/05/2020 Pleural effusion 02/04/2020 Elevated brain natriuretic peptide (BNP) level 020 Chest pain in adult 02/03/2020 Cellulitis of left foot 11/16/2019 Pacemaker 08/07/2019 PAF (paroxysmal atrial fibrillation) 08/07/2019 Abdominal pain 07/18/2019 Pacemaker malfunction 06/25/2019 Cellulitis 04/09/2019 Arteriovenous fistula of right femoral vessels 019 NSTEMI (non-ST elevated myocardial infarction) 019 Coronary artery disease involving tribal coronary chandan ry of tribal heart 01/17/2019 with angina pectoris Type 2 [...] Comments Blood Pressure 87/59 04/09/2020 2:13 PM MANAGEMENT SUPERVISOR Pulse 94 04/09/2020 2:13 PM MANAGEMENT SUPERVISOR Temperature - - Respiratory Rate - - Oxygen Saturation 97% 04/09/2020 2:13 PM MANAGEMENT SUPERVISOR Inhaled Oxygen Concentration - - Weight 74.4 kg (164 lb) 04/09/2020 2:13 PM MANAGEMENT SUPERVISOR Height 170.2 cm (5' 7") 04/09/2020 2:13 PM MANAGEMENT SUPERVISOR Body Mass Index 25.69 04/09/2020 2:13 PM MANAGEMENT SUPERVISOR documented in this encounter Progress Notes Lynette [...] required Lynette Childers MD General Surgery. PGY2 GEMENT SUPERVISOR documented in this encounter Plan of Treatment Date Type Specialty Care Team Description 04/23/2020 Office Visit Surgery Tato Esquivel MD [address] [place] [address] [phone] Health Maintenance Due Date Last Done Comments [...] of this encounter Implants Implanted Type Area Facilities Director Device 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 PACEMAKER [id number] / Assurity [id number] / Pacemaker Metal Bar-05/22/1994 Back Implanted: 05/22/1994 [...] Directives Name Relationship Healthcare Agent Communication Relationship oRse Desouza Mother Health Care Agent
--- OUTSIDE RECORDS SUMMARY | 2020-04-20 10:14 | XMS REPORT | Summary of Care ---
:1960 Author Organization [facility] Address [address] [place] [address] Care Team Providers Name Role Phone Nika Martin Primary Care Provider [facility] Insurance Hmo Nena Aviles DO Product Marketing Specialist Reason for Visit Reason Comments Follow-up s/p left BKA (Routine) Status Reason Specialty Diagnoses / Referred By Referred To Procedures Contact Contact Authorized ESVIN-SURGERY / Diagnoses Osteomyelitis of left foot, unspecified type Tato Esquivel J ohtanya Surgery Procedures Discharge Follow-Up: Specialty Service ESVIN-SURGERY (Dr Esquivel); 2 Weeks MD Dilip Cherry MD [address] [place] [address] [place] [address] Phone: Fax: Encounter Details Date Type Department Care Team Description 04/09/2020 Office Visit [facility] Cancer Tato Esquivelis, Center-General MD Dilip unspecified site, Surgery [address] [place] [address] unspecified type 2280 [facility] (Primary Dx) South, 2nd floor [address] [phone] [phone] Allergies No Known Allergiesdocumented as of this encounter (statuses as of 04/12/2020) Medications Medication Sig Dispensed Refills Start Date [...] tabletIndications: mouth daily. Coronary artery disease involving [place] coronary artery of [place] heart with angina pectoris levothyroxine 50 mcg Take 1 tablet by 30 tablet 0 02/05/2020 Active tabletIndications: mouth every Coronary artery morning. disease involving [place] coronary artery of [place] heart with angina pectoris tamsulosin 0.4 mg 24 Take 1 capsule by 30 capsule 0 02/05/2020 Active hr mouth daily. capsuleIndications: Coronary artery disease involving [place] coronary artery of [place] heart with angina pectoris venlafaxine 75 mg Take 1 tablet by 30 tablet 0 02/05/2020 Active tabletIndications: mouth 2 (two) Coronary artery times daily. disease involving [place] coronary artery of [place] heart with angina pectoris glipiZIDE 5 mg Take 1 tablet by 60 tablet 0 02/05/2020 Active tabletIndications: mouth 2 (two) Coronary artery times daily before disease involving breakfast and [place] coronary dinner. artery of [place] heart with angina pectoris metoprolol succinate Take 1 tablet by 60 tablet 1 02/05/2020 Active XL 25 mg 24 hr mouth 2 (two) tabletIndications: times daily. Coronary artery disease involving [place] coronary artery of [place] heart with angina pectoris furosemide 40 mg Take 1 tablet by 60 tablet 0 02/05/2020 Active tabletIndications: mouth every Coronary artery morning and disease involving evening. [place] coronary artery of [place] heart with angina pectoris KCL 20 mEq Take 1 tablet by 30 tablet 1 02/06/2020 A ctive tabletIndications: mouth daily. Coronary artery disease involving [place] coronary artery of [place] heart with angina pectoris atorvastatin 40 [...] as of this encounter (statuses as of 04/12/2020) Active Problems Problem Noted Date Osteomyelitis 03/16/2020 Preop cardiovascular exam 03/16/2020 Chronic diastolic congestive heart failure 03/16/2020 KALYN (acute kidney injury) 03/16/2020 Left foot pain 03/15/2020 Overview: Added automatically from request for esvin glass [id number] Troponin I above reference range 02/05/2020 Pleural effusion 02/04/2020 Elevated brain natriuretic peptide (BNP) level 020 Chest pain in adult 02/03/2020 Cellulitis of left foot 11/16/2019 Pacemaker 08/07/2019 PAF (paroxysmal atrial fibrillation) 08/07/2019 Abdominal pain 07/18/2019 Pacemaker malfunction 06/25/2019 Cellulitis 04/09/2019 Arteriovenous fistula of right femoral vessels 019 NSTEMI (non-ST elevated myocardial infarction) 019 Coronary artery disease involving [place] coronary chandan ry of [place] heart 01/17/2019 with angina pectoris Type [...] as of this encounter (statuses as of 04/12/2020) Immunizations Name Administration Dates Next Due Influenza [...] Comments Blood Pressure 87/59 04/09/2020 2:13 PM POLITICAL REPORTER Pulse 94 04/09/2020 2:13 PM POLITICAL REPORTER Temperature - - Respiratory Rate - - Oxygen Saturation 97% 04/09/2020 2:13 PM POLITICAL REPORTER Inhaled Oxygen Concentration - - Weight 74.4 kg (164 lb) 04/09/2020 2:13 PM POLITICAL REPORTER Height 170.2 cm (5' 7") 04/09/2020 2:13 PM POLITICAL REPORTER Body Mass Index 25.69 04/09/2020 2:13 PM POLITICAL REPORTER documented in this encounter Progress Notes Lynette [...] required Lynette Childers MD General Surgery. PGY2 I have examined Mr Rooney and agree with the note by Dr Childers. Overall doing well. TICAL REPORTER documented in this encounter Plan of Treatment Date Type Specialty Care Team Description 04/23/2020 Office Visit Surgery Tato Esquivel MD [address] [place] [address] [place], [place] [address] [phone] Health Maintenance Due Date Last Done Comments [...] of this encounter Implants Implanted Type Area Property Insurance Claims Examiner Device 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 PACEMAKER [id number] / Assurity [id number] / Pacemaker Metal Bar-05/22/1994 Back Implanted: 05/22/1994 [...]
--- NOTE | 2020-04-20 10:41 | RAD REPORT ---
EXAM DESCRIPTION: RAD - Tib Fib Left - 04/20/2020 10:01 am CLINICAL HISTORY: Fall, blunt force trauma to the soft tissues overlying the amputation site COMPARISON: None. FINDINGS: No fracture changes are identifiable. Small bone fragments or bony densities are present i n the soft tissues posterior to the tibial bony stump. These are not unusual in amputee and not regar ded as significant. These are potentially arterial calcifications. No air or foreign body in the soft tissues. Degenerative changes are present in the knee joint. Meniscal calcifications are seen. No joint effusi on. IMPRESSION: No air or foreign body in the soft tissues. No acute bone finding.
[2020-04-20] MEDS ORDERED: HYDROCODONE/APAP 5/325 MG TAB ONE (10:45)
--- NOTE | 2020-04-20 10:46 | EDPHYS ---
Physician Documentation [facility] Name: Ernie Rooney Age: 59 yrs Sex: Male : 1960 Arrival Date: 04/20/2020 Time: 09:13 Bed 8 Private MD: ED Physician Hawk Parrish HPI: 04/20 10:39 This 59 yrs old Male presents to ER via EMS with complaints of Bleeding from rn left stump sutures.. 10:39 The patient presents with an injury, pain. The complaints affect the Left amputation rn stump. Onset: The symptoms/episode began/occurred just prior to arrival. Modifying factors: The symptoms are alleviated by nothing. the symptoms are aggravated by nothing. Severity of symptoms: At their worst the symptoms were moderate, in the emergency department the symptoms have improved. The patient has not experienced similar symptoms in the past. The patient has been recently seen by a physician:. 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 Popped a few stitches and bled for a little while, stopped bleeding prior to arrival with bandage and pressure by EMS.. Historical: - Allergies: 09:18 NKA; sv - PMHx: 09:18 Back pain; Hyperlipidemia; Arthritis; High Cholesterol; Fibromyalgia; Hypertension; sv CVA; Depression; Diabetes - NIDDM; Hypothyroidism; GERD; Left sided weakness from previous CVA; Myocardial infarction; Pacemaker; - PSHx: 09:18 Heart stents; sv - Immunization history:: Adult Immunizations up to date. - Social history:: Smoking status: . - Family history:: not pertinent. - Hospitalizations: : No recent hospitalization is reported. ROS: 10:39 Constitutional: Negative for fever, chills, and weight loss, MS/Extremity: + injury and rn bleeding to left post-amputation stump Exam: 10:39 Constitutional: This is a well developed, well nourished patient who is awake, alert, rn and in no acute distress. MS/ Extremity: Pulses equal, no cyanosis. Neurovascular intact. Left amputation stump with2-3 popped sutures in center, clotted blood, no active bleeding, no bony tenderness. Vital Signs: 09:14 BP 156 / 87; Pulse 98; Resp 16; Temp 97.5; Pulse Ox 100% on R/A; Weight 74.84 kg; dh3 Height 5 ft. 7 in. (170.18 cm); Pain 9/10; 10:29 BP 163 / 77; Pulse 99; Resp 16; Pulse Ox 100% ; sv 11:16 BP 151 / 89; Pulse 68; Resp 18; Pulse Ox 99% on R/A; sv 09:14 Body Mass Index 25.84 (74.84 kg, 170.18 cm) 3 MDM: 09:14 Patient medically screened. rn 10:39 Differential diagnosis: closed fracture, contusion, suture dehiscence. Data reviewed: rn vital signs, nurses notes, radiologic studies, plain films, and as a result, I will discharge patient. Counseling: I had a detailed discussion with the patient and/or guardian regarding: the historical points, exam findings, and any diagnostic results supporting the discharge/admit diagnosis, radiology results, the need for outpatient follow up, to return to the emergency department if symptoms worsen or persist or if there are any questions or concerns that arise at home. Response to treatment: the patient's symptoms have markedly improved after treatment, and as a result, I will discharge patient. Special discussion: I discussed with the patient/guardian in detail that at this point there is no indication for admission to the hospital. It is understood, however, that if the symptoms persist or worsen the patient needs to return immediately for re-evaluation. ED course: Bleeding stopped with dressing on top of surgicel, stable vitals, xray neg for fracture. Will dc home with surgical f/u, has appt coming up in 3 days.. 04/20 09:15 Order name: XRAY Tib Fib LEFT; Complete Time: 10:47 rn 04/20 09:15 Order name: Wound Care; Complete Time: 09:23 rn 04/20 09:15 Order name: Wound dressing; Complete Time: 09:23 rn Administered Medications: 10:32 Drug: [place] 5 mg-325 mg 1 tabs {Note: rass1.} Route: PO; sv 11:50 Follow up: Response: No adverse reaction; RASS: Alert and Calm (0) sv Disposition: 04/20/20 10:45 Discharged to Home. Impression: Contusion of left lower leg, Disruption of wound, unspecified. - Condition is Stable. - Discharge Instructions: Contusion, Wound Dehiscence. - Medication Reconciliation Form, Thank You Letter, Antibiotic Education, Prescription Opioid Use form. - Follow up: Private Physician; When: 2 - 3 days; Reason: Recheck today's complaints, Re-evaluation by your physician. - Problem is new. - Symptoms have improved. Signatures: Dispatcher [employer] Goldie Lorenzo RN RN Hawk Hodges MD MD rn Corrections: (The following items were deleted from the chart) 11:54 10:45 04/20/2020 10:45 Discharged to Home. Impression: Contusion of left lower leg; sv Disruption of wound, unspecified. Condition is Stable. Forms are Medication Reconciliation Form, Thank You Letter, Antibiotic Education, Prescription Opioid Use. Follow up: Private Physician; When: 2 - 3 days; Reason: Recheck today's complaints, Re-evaluation by your physician. Problem is new. Symptoms have improved. rn
--- NOTE | 2020-04-20 10:46 | ER ---
Nurse's Notes [facility] Name: Ernie Rooney Age: 59 yrs Sex: Male : 1960 Arrival Date: 04/20/2020 Time: 09:13 Bed 8 Private MD: Diagnosis: Contusion of left lower leg;Disruption of wound, unspecified Presentation: 04/20 09:13 Chief complaint: EMS states: Pt was attempting to urinate and had his left stump sv stabilized on his wheelchair and his right leg gave out and went onto his left leg stump. Started bleeding from the left stump where the sutures are. EMS placed bandages on the stump. Coronavirus screen: Client denies travel out of the [place] in the last 14 days. At this time, the client does not indicate any symptoms associated with coronavirus-19. Ebola Screen: No symptoms or risks identified at this time. Initial Sepsis Screen: Does the patient meet any 2 criteria? No. Patient's initial sepsis screen is negative. Does the patient have a suspected source of infection? No. Patient's initial sepsis screen is negative. Risk Assessment: Do you want to hurt yourself or someone else? Patient reports no desire to harm self or others. Onset of symptoms was April 20, 2020. 09:13 Method Of Arrival: EMS: [facility] 09:13 Acuity: TONE 3 sv Triage Assessment: 09:13 General: Appears in no apparent distress. comfortable, well developed, Behavior is sv calm, cooperative, appropriate for age. Pain: Complains of pain in left leg Pain currently is 3 out of 10 on a pain scale. Neuro: Level of Consciousness is awake, alert, obeys commands, Oriented to person, place, time, situation, Moves all extremities. Respiratory: Airway is patent Respiratory effort is even, unlabored, Respiratory pattern is regular, symmetrical. Derm: Skin is pink, warm \T\ dry. Musculoskeletal: Amputation of L BKA with sutures. Not bleeding currently, blood has clotted. Instructed by Dr Parrish to place surgicele and apply a pressure dressing. Historical: - Allergies: 09:18 NKA; sv - PMHx: 09:18 Back pain; Hyperlipidemia; Arthritis; High Cholesterol; Fibromyalgia; Hypertension; sv CVA; Depression; Diabetes - NIDDM; Hypothyroidism; GERD; Left sided weakness from previous CVA; Myocardial infarction; Pacemaker; - PSHx: 09:18 Heart stents; sv - Immunization history:: Adult Immunizations up to date. - Social history:: Smoking status: . - Family history:: not pertinent. - Hospitalizations: : No recent hospitalization is reported. Screenin:19 Abuse screen: Denies threats or abuse. Denies injuries from another. Nutritional sv screening: No deficits noted. Tuberculosis screening: No symptoms or risk factors identified. Fall Risk None identified. Assessment: 10:32 Reassessment: Patient appears in no apparent distress at this time. No changes from sv previously documented assessment. Patient and/or family updated on plan of care and expected duration. Pain level reassessed. Patient is alert, oriented x 3, equal unlabored respirations, skin warm/dry/pink. 11:14 Reassessment: Patient appears in no apparent distress at this time. No changes from sv previously documented assessment. Patient and/or family updated on plan of care and expected duration. Pain level reassessed. Patient is alert, oriented x 3, equal unlabored respirations, skin warm/dry/pink. 11:14 Reassessment: Pt calling for transportation home. sv 11:50 Reassessment: Patient appears in no apparent distress at this time. Patient and/or sv family updated on plan of care and expected duration. Pain level reassessed. Patient is alert, oriented x 3, equal unlabored respirations, skin warm/dry/pink. Vital Signs: 09:14 BP 156 / 87; Pulse 98; Resp 16; Temp 97.5; Pulse Ox 100% on R/A; Weight 74.84 kg; 3 Height 5 ft. 7 in. (170.18 cm); Pain 9/10; 10:29 BP 163 / 77; Pulse 99; Resp 16; Pulse Ox 100% ; sv 11:16 BP 151 / 89; Pulse 68; Resp 18; Pulse Ox 99% on R/A; sv 09:14 Body Mass Index 25.84 (74.84 kg, 170.18 cm) 3 ED Course: 09:13 Patient arrived in ED. sv 09:14 Hawk Parrish MD is Attending Physician. rn 09:15 Goldie Trinh RN is Primary Nurse. sv 09:17 Triage completed. sv 09:18 Arm band placed on. sv 09:18 Patient has correct armband on for positive identification. Bed in low position. Call sv light in reach. Side rails up X2. Pulse ox on. NIBP on. Door closed. Warm blanket given. Head of bed elevated. Elevated left leg. 09:18 Dressings: non-adherent dressing x 1 left leg Surgicele placed on left stump area per sv Dr Parrish and an april wrap placed for pressure. 09:26 Awaiting for x-ray. sv 09:39 X-ray(s) taken. sv 10:01 XRAY Tib Fib LEFT In Process Unspecified. EDMS 11:14 No provider procedures requiring assistance completed. Patient did not have IV access sv during this emergency room visit. Administered Medications: 10:32 Drug: [place] 5 mg-325 mg 1 tabs {Note: rass1.} Route: PO; sv 11:50 Follow up: Response: No adverse reaction; RASS: Alert and Calm (0) sv Output: 09:23 Urine: 1400ml (Voided); Total: 1400ml. sv Outcome: 10:45 Discharge ordered by . rn 11:54 Discharged to home via wheelchair, with family. sv 11:54 Condition: stable 11:54 Discharge instructions given to patient, Instructed on discharge instructions, follow up and referral plans. Demonstrated understanding of instructions, follow-up care. 11:54 Patient left the ED. sv Signatures: Dispatcher [employer] Goldie Lorenzo RN RN sv Nieto, Roman, MD MD rn Herrera, Deanna [facility]
[2020-04-20 12:33] VITALS: TEMP 97.5
[2020-04-20 12:36] VITALS: BP 151/89; O2SAT 99
== END 2020-04-20 11:54 | disposition home or self-care (01) ==
LOC: ER 09:05
DX: T81.30XA Disruption of wound, unspecified, initial encounter (principal); W18.39XA Other fall on same level, initial encounter; Y93.89 Activity, other specified; Y92.9 Unspecified place or not applicable; Z89.512 Acquired absence of left leg below knee; Z95.0 Presence of cardiac pacemaker; Z95.818 Presence of other cardiac implants and grafts; I10 Essential (primary) hypertension
CPT/HCPCS: 99284

== ENCOUNTER 2021-02-14 13:32 | Inpatient (IN) | payer OTHER ==
[2021-02-14 14:02] LABS: Protime INR 1.2
--- NOTE | 2021-02-14 14:21 | RAD REPORT ---
EXAM DESCRIPTION: RAD - Chest Single View - 02/14/2021 2:07 pm CLINICAL HISTORY: LE edema COMPARISON: Portable July 2019 TECHNIQUE: AP portable chest image was obtained 02/14/2021 2:07 pm . FINDINGS: Lung volumes are low. Patchy left base airspace opacification present partially obscured b y the pacemaker battery pack. Left hemidiaphragm is partially obscured and there is left costophrenic angle blunting. Interstitial and alveolar opacities elsewhere in the lung heredia are less prominent and likely due to low lung volumes. Heart size is prominent from the portable technique and shallow inspiration. Upper lobe vasculature is not outside of the range of normal. No right-sided large pleural effusions seen. There is no pneum othorax. Sternotomy wires are in place. No acute bony abnormality seen. No acute aortic findings susp ected. IMPRESSION: Heart, vasculature and lung markings are mildly prominent. This is mostly due to low mery g volumes and portable technique. A mild failure or volume overload is possible. Pleural and parenchymal findings are more prominent in the left base. A concurrent small pneumonia ca nnot be excluded.
[2021-02-14 14:25] LABS: Absolute Lymphocytes (CBC) 1.4 K/uL (0.7-4.9); Basophils % 0.9 % (0-1.3); Hematocrit 32.7 % (39.6-49.0); RBC Red Blood Cell Count 3.85 M/uL (4.33-5.43)
[2021-02-14 14:30] LABS: ALT/SGPT 16 U/L (12-78); AST/SGOT 13 U/L (15-37); Albumin 2.7 g/dL (3.4-5.0); Alkaline Phosphatase 132 U/L (45-117); BUN Blood Urea Nitrogen 20 mg/dL (7-18); Bicarbonate 24 mmol/L (21-32); Bilirubin Direct 0.2 mg/dL (0-0.2); Bilirubin Total 0.5 mg/dL (0.2-1.0); Glucose Level 116 mg/dL (74-106); Magnesium 2.1 mg/dL (1.8-2.4); NT PRO-BNP 3978 pg/mL (<125); Potassium 4.8 mmol/L (3.5-5.1); Sodium Level 142 mmol/L (136-145); Troponin (Emerg Dept Use Only) < 0.02 ng/mL (0.0-0.045)
--- NOTE | 2021-02-14 15:07 | ER ---
Nurse's Notes [facility] Name: Ernie Rooney Age: 60 yrs Sex: Male : 1960 Arrival Date: 02/14/2021 Time: 13:35 Bed 5 Private MD: Diagnosis: Chest pain, unspecified Presentation: 02/14 13:36 Ebola Screen: Patient denies travel to an Ebola-affected area in the 21 days before ll1 illness onset. Risk Assessment: Do you want to hurt yourself or someone else? Patient reports no desire to harm self or others. 13:36 Method Of Arrival: EMS: [facility] ll1 13:36 Acuity: TONE 3 ll1 13:37 Chief complaint: EMS states: patient came from home for sore, swollen legs x1 wk. Hx of es2 CHF, but hasn't take lasix in the last month. reports chest pain that started 2 days ago. Pacemaker for AFIV. denies fever. Coronavirus screen: Vaccine status: Patient reports receiving the 2nd dose of the covid vaccine. Date October 16, 2020. Onset of symptoms was February 06, 2021. Triage Assessment: 13:37 General: Appears well nourished, Behavior is calm, cooperative, appropriate for age. es2 Pain: Complains of pain in right leg and left leg Pain currently is 9 out of 10 on a pain scale. Historical: - Allergies: 13:35 NKA; ll1 - PMHx: 13:35 Fibromyalgia; Depression; Hypothyroidism; Hypertension; Hyperlipidemia; Left sided ll1 weakness from previous CVA; High Cholesterol; GERD; Diabetes - NIDDM; CVA; Myocardial infarction; Back pain; Arthritis; Pacemaker; - PSHx: 13:35 bilat BKA's; ll1 - Immunization history:: Adult Immunizations up to date, Client reports receiving the Juan Miguel \\T\\ Juan Miguel single-dose vaccine. - Social history:: Smoking status: unknown. - Family history:: not pertinent. Screenin:46 Abuse screen: Denies threats or abuse. Nutritional screening: No deficits noted. ll1 Tuberculosis screening: No symptoms or risk factors identified. Fall Risk Secondary diagnosis (15 points) impaired mobility, IV access (20 points). Ambulatory Aid- Crutches/Cane/Walker (15 pts). Gait- Impaired (20 pts.). Total Cummings Fall Scale indicates High Risk Score (45 or more points). Fall prevention measures have been instituted. Side Rails Up X 2 Placed Close to Nursing Station Frequent Obs/Assessments Occuring As available patient and family educated on Fall Prevention Program and Strategies. Vital Signs: 15:43 BP 120 / 69; Pulse 79; Resp 18; Temp 98.0; Pulse Ox 100% ; ll1 15:44 BP 142 / 92; Pulse 88; Pulse Ox 99% ; ll1 ED Course: 13:35 Patient arrived in ED. ll1 13:35 Cristine Eugene RN is Primary Nurse. es2 13:35 Arm band placed on Patient placed in an exam room, on a stretcher. ll1 13:37 Triage completed. ll1 13:37 Heather Bera MD is Attending Physician. ma2 13:46 Patient has correct armband on for positive identification. Bed in low position. Call ll1 light in reach. Side rails up X2. library monitor on. Pulse ox on. NIBP on. 14:07 XRAY Chest (1 view) In Process Unspecified. EDMS 15:06 Alf Rios is Hospitalizing Provider. ma2 15:16 COVID swab sent to lab. sv 15:16 COVID-19 : Document "Date of Symptom Onset" if Symptomatic. Sent. sv 16:28 Notified ED physician of a critical lab result(s). COVID POSITIVE. sv 19:31 No provider procedures requiring assistance completed. Patient admitted, IV remains in em place. Administered Medications: 14:37 Drug: Ketorolac 30 mg Route: IVP; Site: left forearm; es2 14:37 Drug: Aspirin Chewable Tablet 324 mg Route: PO; es2 15:50 Drug: Dilaudid (HYDROmorphone) 1 mg {Note: Rass 0.} Route: IVP; Site: left forearm; es2 16:37 Drug: Phenergan (promethazine) 25 mg Route: IVP; Site: left forearm; es2 Outcome: 15:06 Decision to Hospitalize by Provider. ma2 20:04 Admitted to Med/surg ea 20:04 Condition: stable 20:04 Instructed on the need for admit. 20:05 Patient left the ED. ea Signatures: Dispatcher [employer] EDNE Goldie Trinh RN RN Aj Garcia, RN RN em Romulo, Jamila RN RN ea Heather Bear MD MD ma2 Aruna Gilbert RN RN ll1 Cristine Eugene RN RN es2
--- NOTE | 2021-02-14 15:07 | EDPHYS ---
Physician Documentation [facility] Name: Ernie Rooney Age: 60 yrs Sex: Male : 1960 Arrival Date: 02/14/2021 Time: 13:35 Bed 5 Private MD: ED Physician Heather Bear HPI: 02/14 14:29 This 60 yrs old Male presents to ER via EMS with complaints of leg pain and ma2 chest pain. 14:29 Onset: gradually, 2 day(s) ago. Associated signs and symptoms: Pertinent negatives: ma2 cough, dizziness, lower extremity swelling, nausea, syncope. Severity of pain: At its worst the pain was mild in the emergency department the pain is unchanged. Historical: - Allergies: 13:35 NKA; ll1 - PMHx: 13:35 Fibromyalgia; Depression; Hypothyroidism; Hypertension; Hyperlipidemia; Left sided ll1 weakness from previous CVA; High Cholesterol; GERD; Diabetes - NIDDM; CVA; Myocardial infarction; Back pain; Arthritis; Pacemaker; - PSHx: 13:35 bilat BKA's; ll1 - Immunization history:: Adult Immunizations up to date, Client reports receiving the Juan Miguel \\T\\ Juan Miguel single-dose vaccine. - Social history:: Smoking status: unknown. - Family history:: not pertinent. ROS: 14:29 Constitutional: Negative for fever, chills, and weight loss. ma2 14:29 All other systems are negative. Exam: 14:29 Constitutional: This is a well developed, well nourished patient who is awake, alert, ma2 and in no acute distress. Head/Face: Normocephalic, atraumatic. Eyes: Pupils equal round and reactive to light, extra-ocular motions intact. Lids and lashes normal. Conjunctiva and sclera are non-icteric and not injected. Cornea within normal limits. Periorbital areas with no swelling, redness, or edema. ENT: Nares patent. No nasal discharge, no septal abnormalities noted. Tympanic membranes are normal and external auditory canals are clear. Oropharynx with no redness, swelling, or masses, exudates, or evidence of obstruction, uvula midline. Mucous membranes moist. Neck: Trachea midline, no thyromegaly or masses palpated, and no cervical lymphadenopathy. Supple, full range of motion without nuchal rigidity, or vertebral point tenderness. No Meningismus. Chest/axilla: Normal chest wall appearance and motion. Nontender with no deformity. No lesions are appreciated. Cardiovascular: Regular rate and rhythm with a normal S1 and S2. No gallops, murmurs, or rubs. Normal PMI, no JVD. No pulse deficits. Respiratory: Lungs have equal breath sounds bilaterally, clear to auscultation and percussion. No rales, rhonchi or wheezes noted. No increased work of breathing, no retractions or nasal flaring. Abdomen/GI: Soft, non-tender, with normal bowel sounds. No distension or tympany. No guarding or rebound. No evidence of tenderness throughout. Skin: Warm, dry with normal turgor. Normal color with no rashes, no lesions, and no evidence of cellulitis. MS/ Extremity: bka bilat. otherwise Pulses equal, no cyanosis. Neurovascular intact. Full, normal range of motion. Neuro: Awake and alert, GCS 15, oriented to person, place, time, and situation. Cranial nerves II-XII grossly intact. Motor strength 5/5 in all extremities. Sensory grossly intact. Cerebellar exam normal. Normal gait. Vital Signs: 15:43 BP 120 / 69; Pulse 79; Resp 18; Temp 98.0; Pulse Ox 100% ; ll1 15:44 BP 142 / 92; Pulse 88; Pulse Ox 99% ; ll1 MDM: 13:38 Patient medically screened. ma2 14:29 Differential diagnosis: abnormal EKG, gastroesophageal reflux disease (GERD), ma2 myocarditis, pancreatitis, stable angina. HEART Score: History: Moderately Suspicious (1), ECG: Non specific repolarization disturbance / LBTB / PM (1), Age: > 45 and < 65 years (1), Risk Factors: 1 or 2 risk factors (1), Troponin: < or = 1 x Normal Limit (0), Total Score = 5. The patient was given aspirin in the Emergency Department. 15:05 Data reviewed: vital signs, nurses notes, EMS record. Counseling: I had a detailed ma2 discussion with the patient and/or guardian regarding: the historical points, exam findings, and any diagnostic results supporting the discharge/admit diagnosis, the presence of at least one elevated blood pressure reading (>120/80) during this emergency department visit, the need for outpatient follow up. Response to treatment: the patient's symptoms have markedly improved after treatment. 02/14 13:39 Order name: Basic Metabolic Panel; Complete Time: 14:57 [facility] 02/14 13:39 Order name: CBC with Diff [facility] 02/14 13:39 Order name: LFT's; Complete Time: 14:57 [facility] 02/14 13:39 Order name: Magnesium; Complete Time: 14:57 [facility] 02/14 13:39 Order name: NT PRO-BNP; Complete Time: 14:57 [facility] 02/14 13:39 Order name: PT-INR; Complete Time: 14:57 [facility] 02/14 13:39 Order name: Troponin (emerg Dept Use Only); Complete Time: 14:57 [facility] 02/14 15:09 Order name: COVID-19 : Document "Date of Symptom Onset" if Symptomatic. sv 02/14 15:31 Order name: CBC Smear Scan [facility] 02/14 15:46 Order name: Basic Metabolic Panel [facility] 02/14 15:46 Order name: CKMB Creatine Kinase MB [facility] 02/14 15:46 Order name: CKMB Creatine Kinase MB [facility] 02/14 15:46 Order name: CKMB Creatine Kinase MB [facility] 02/14 13:39 Order name: XRAY Chest (1 view); Complete Time: 14:57 [facility] 02/14 15:46 Order name: CKMB Creatine Kinase MB [facility] 02/14 15:46 Order name: Creatine Phosphokinase [facility] 02/14 15:46 Order name: Creatine Phosphokinase [facility] 02/14 15:46 Order name: Creatine Phosphokinase [facility] 02/14 15:46 Order name: Creatine Phosphokinase [facility] 02/14 15:46 Order name: Lipid Profile [facility] 02/14 15:46 Order name: Lipid Profile [facility] 02/14 15:46 Order name: Echo with Doppler [facility] 02/14 15:46 Order name: CBC with Automated Diff [facility] 02/14 15:46 Order name: Troponin I [facility] 02/14 15:53 Order name: Hemoglobin A1c [facility] 02/14 16:28 Order name: SARS-COV-2 RT PCR [facility] 02/14 17:07 Order name: Glucose, Ancillary Testing [facility] 02/14 18:14 Order name: Troponin I [facility] 02/14 13:39 Order name: EKG; Complete Time: 13:40 nd2 02/14 13:39 Order name: Cardiac monitoring; Complete Time: 14:33 [facility] 02/14 13:39 Order name: EKG - Nurse/Tech; Complete Time: 14:33 [facility] 02/14 13:39 Order name: IV Saline Lock; Complete Time: 14:33 [facility] 02/14 13:39 Order name: Labs collected and sent; Complete Time: 14:33 [facility] 02/14 13:39 Order name: O2 Per Protocol; Complete Time: 14:33 [facility] 02/14 13:39 Order name: O2 Sat Monitoring; Complete Time: 14:33 [facility] 02/14 15:46 Order name: CONS Physician Consult [facility] 02/14 15:46 Order name: Heart Healthy [facility] 02/14 15:46 Order name: EKG Electrocardiogram [facility] 02/14 15:46 Order name: EKG Electrocardiogram [facility] 02/14 15:46 Order name: EKG Electrocardiogram [facility] 02/14 15:46 Order name: EKG Electrocardiogram [facility] Administered Medications: 14:37 Drug: Ketorolac 30 mg Route: IVP; Site: left forearm; es2 14:37 Drug: Aspirin Chewable Tablet 324 mg Route: PO; es2 15:50 Drug: Dilaudid (HYDROmorphone) 1 mg {Note: Rass 0.} Route: IVP; Site: left forearm; es2 16:37 Drug: Phenergan (promethazine) 25 mg Route: IVP; Site: left forearm; es2 Disposition Summary: 02/14/21 15:06 Hospitalization Ordered Hospitalization Status: Observation ma2 Provider: Alf Rios Condition: Stable ma2 Problem: new ma2 Symptoms: are unchanged ma2 Bed/Room Type: Standard nd2 Location: Telemetry/MedSurg (observation)(02/14/21 17:59) eb Room Assignment: 411(02/14/21 17:59) eb Diagnosis - Chest pain, unspecified ma2 Forms: - Medication Reconciliation Form ma2 - SBAR form ma2 Signatures: Dispatcher [employer] EDMS Goldie Trinh RN RN sv Alzahri, Mohammad, MD MD ma2 Cristine Kaplan Lynsay, RN RN 1 Eugene, Cristine, RN RN es2 Corrections: (The following items were deleted from the chart) 15:33 15:10 CORONAVIRUS ordered. EDMS EDMS 16:05 15:06 Telemetry/MedSurg (observation) ma2 sv 16:05 15:06 ma2 sv 17:59 16:05 [facility] ER HOLD sv eb 17:59 16:05 ERHOLD- sv eb
[2021-02-14 15:31] LABS: Anisocytosis 1+; Blood Morphology Comment NOTED (NOT SEEN); Platelet Estimate ADEQ; White Blood Cell Scan OK (OK)
[2021-02-14] MEDS ORDERED: NITROGLYCERIN 0.4 MG/TAB SL PRN (15:40)
[2021-02-14] MEDS ORDERED: ACETAMINOPHEN 500 MG TAB PO PRN (15:40)
--- NOTE | 2021-02-14 15:52 | P.HP ---
Certification for Inpatient With expected LOS: >2 Midnights Patient will require the following post-hospital care: None Practitioner: I am a practitioner with admitting privileges, knowledge of patient current condition, hospital course, and medical plan of care. Services: Services provided to patient in accordance with Admission requirements found in Title 42 Section 412.3 of the Code of Federal Regulations Patient History Date of Service: 02/14/21 Reason for admission: chest pain History of Present Illness: 60-year-old [place] male with past medical history of hypertension, hyperlipidemia, diabetes, OR status post CABG in 2002, status post PCI stent 2019 presents for evaluation of chest pain. The patient was in his usual state of health when he developed acute sharp mid sternum chest pain 2 days ago with radiation to left upper extremity. The onset of pain came while the patient was resting in his home. No aggravating factors the pain is alleviated with resting. Patient also reports mild shortness of breath and nausea. The patient denies diaphoresis, dizziness, weakness, presyncope, vomiting. He has extensive cardiac history with myocardial infarction x4 with most recent OR in 2019 and he received a stent for that, coronary artery bypass in 2002. 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 His chest x-ray shows fluid overload. BNP is over 3000. He is admitted for further evaluation. Allergies No Known Allergies Allergy (Verified 10/19/12 16:51) Home Medications: Amlodipine Besylate [Norvasc] 5 mg PO DAILY 11/19/18 Famotidine [Pepcid*] 20 mg PO DAILY 11/19/18 Gabapentin [Neurontin*] 300 mg PO TID 11/19/18 Metoclopramide HCl [Reglan] 10 mg PO TIDWM 11/19/18 Tamsulosin [Flomax*] 0.4 mg PO DAILY 11/19/18 lisinopriL [Prinivil*] 2.5 mg PO DAILY 11/19/18 Aspirin Chewable [Aspirin Chewable*] 81 mg PO BEDTIME 05/11/19 Atorvastatin Calcium [Lipitor] 80 mg PO DAILY 05/11/19 Hum Insulin NPH/Reg Insulin Hm [Humulin 70-30 Vial] 16 units SQ DAILY 05/11/19 Metoprolol Tartrate 25 mg PO BID #60 tablet 05/13/19 Apixaban [Eliquis *] 5 mg PO BID 08/01/19 Clopidogrel Bisulfate [Plavix] 75 mg PO DAILY #30 tablet 08/01/19 Ondansetron HCl [Zofran] 4 mg PO Q8H 08/01/19 Pantoprazole Sodium [Protonix] 20 mg PO DAILY 08/01/19 Polyethylene Glycol 3350 [Miralax] 17 gm PO DAILY #30 powd.pack 08/01/19 Sennosides [Senna Laxative] 17.2 mg PO BID #60 tablet 08/01/19 - Past Medical/Surgical History Diabetic: Yes -: OR -: GERD -: Hypertension -: Anxiety; depression -: DM insulin dependent -: Hypothyroidism -: enlarged prostate -: cataract in the left eye -: fibromyalgia -: hyperlipidemia -: neuropathy -: pacemaker placement May 2017 -: triple bypass 2002 08 stents -: back surgeries x 6 -: arthroscopic surgeries bilateral knees -: left forearm rodding -: Cholecystectomy -: Appendectomy -: tonsillectomy - Family History Mother -: Heart disease, Hypertension grandparents -: Diabetes, Stroke - Social History Alcohol use: No CD- Drugs: No Caffeine use: Yes Review of Systems General: Unremarkable Eyes: Unremarkable ENT: Unremarkable Respiratory: Shortness of Breath Cardiovascular: Chest Pain Gastrointestinal: Nausea Musculoskeletal: Unremarkable Neurological: Unremarkable Physical Examination - Physical Exam General: Alert, Oriented x3, Mild distress HEENT: Atraumatic, Normocephalic, PERRLA, Mucous membr. moist/pink, Sclerae nonicteric Neck: Supple, 2+ carotid pulse no bruit, JVD not distended, Without JVD or thyroid abnormality Respiratory: Clear to auscultation bilaterally Cardiovascular: No edema, Normal pulses, Regular rate/rhythm Gastrointestinal: Normal bowel sounds, Soft and benign, Non-distended, No ascites, No tenderness, No masses, No rebound, No guarding Musculoskeletal: Other (Bilateral BKA ) Integumentary: No rashes, No breakdown, No significant lesion, No tenderness/swelling, No erythema, No warmth, No cyanosis Neurological: Normal speech, Other (Ambulates with wheelchair) - Studies Laboratory Data (last 24 hrs) 02/14/21 13:40: PT 13.8 H, INR 1.20 02/14/21 13:40: WBC 7.10, Hgb 10.9 L, Hct 32.7 L, Plt Count 365 02/14/21 13:40: Sodium 142, Potassium 4.8, BUN 20 H, Creatinine 0.63, Glucose 116 H, Magnesium 2.1, Total Bilirubin 0.5, AST 13 L, ALT 16, Alkaline Phosphatase 132 H Assessment and Plan - Plan Assessment: 60-year-old [place] with past medical history of hypertension, hyperlipidemia, diabetes, OR x4, CABG in 2002 presents for evaluation of chest pain x2 days Plan: Chest pain: EKG negative for ischemia Troponin within normal limits With admit for observation and serial EKGs and troponin Cardiology consult placed Continue telemetry monitoring DM: We will check A1c Insulin scale per protocol Blood sugar check ACH as per protocol HLD: We will check lipid panel Continue home statin Discharge Plan: Home Plan to discharge in: 48 Hours - Advance Directives Does patient have a Living Will: No Does patient have a Durable POA for Healthcare: No
[2021-02-14] MEDS: INSULIN -REGULAR HUMAN 50 UNIT/0.5 ML ML SQ SCH ×2 (16:30→20:52)
[2021-02-14] MEDS: FUROSEMIDE 40 MG/4 ML VIAL IV SCH (17:00)
[2021-02-14 17:05] VITALS: BMI 41.8
[2021-02-14] MEDS ORDERED: FUROSEMIDE 40 MG/4 ML VIAL ONE (17:59)
[2021-02-14] MEDS ORDERED: PROMETHAZINE INJ 25 MG/ML AMP ONE (18:14)
[2021-02-14] MEDS ORDERED: ASPIRIN 81 MG CHEWABLE TABLET ONE (18:14)
[2021-02-14] MEDS ORDERED: KETOROLAC 30 MG/ML INJ ONE (18:14)
[2021-02-14] MEDS ORDERED: HYDROMORPHONE HCL 2 MG/ML inj ONE (18:16)
[2021-02-14] MEDS ORDERED: HYDROCODONE/APAP 5/325 MG TAB PO PRN (20:39)
[2021-02-14] MEDS: MORPHINE 2 MG/ML SYR IV PRN (20:50)
[2021-02-14] MEDS: METOPROLOL TAR 50 MG TAB PO SCH (20:51)
[2021-02-15] MEDS: FUROSEMIDE 40 MG/4 ML VIAL IV SCH ×2 (01:35→08:50)
[2021-02-15] MEDS: INSULIN -REGULAR HUMAN 50 UNIT/0.5 ML ML SQ SCH ×2 (07:30→11:30)
[2021-02-15 08:00] LABS: CKMB Creatine Kinase MB 1.4 ng/mL (1.0-3.6)
[2021-02-15] MEDS: METOPROLOL TAR 50 MG TAB PO SCH (08:51)
[2021-02-15] MEDS ORDERED: ASPIRIN EC 81 MG TAB PO SCH (09:00)
[2021-02-15] MEDS ORDERED: REGADENOSON 0.4 MG/5 ML SYR IV ONE (09:03)
[2021-02-15 11:09] VITALS: O2SAT 94
[2021-02-15] MEDS: MORPHINE 2 MG/ML SYR IV PRN (11:11)
--- NOTE | 2021-02-15 11:21 | P.DS ---
Admission Date: 02/14/21 Discharge Date: 02/15/21 Disposition: ROUTINE DISCHARGE Discharge Condition: FAIR Reason for Admission: chest pain - Problems (1) Chest pain Onset Date: 05/04/18 Current Visit: No Status: Acute Qualifiers: Chest pain type: unspecified Qualified Code(s): R07.9 - Chest pain, unspecified (2) CAD (coronary artery disease) Onset Date: 11/08/17 Current Visit: No Status: Chronic (3) History of pacemaker Onset Date: 11/08/17 Current Visit: No Status: Chronic Brief History of Present Illness: 60-year-old [place] male with past medical history of hypertension, hyperlipidemia, diabetes, AK status post CABG in 2002, status post PCI stent 2019 presents for evaluation of chest pain. The patient was in his usual state of health when he developed acute sharp mid sternum chest pain 2 days ago with radiation to left upper extremity. The chest pain occurred at rest. No aggravating factors. Patient also reported mild shortness of breath and nausea. He has extensive cardiac history with myocardial infarction x4 with most recent AK in 2019 and he received a stent for that, coronary artery bypass in 2002. 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 His chest x-ray shows possible pulmonary vascular congestion. BNP elevated. Patient admitted for further evaluation. Hospital Course: Patient admitted to the medical floor. Troponin trended negative. EKG showed no acute ischemic changes. Patient seen by cardiology who is planning elective cardiac catheterization. He tested positive for COVID. Dr. Royal will follow with patient as an outpatient and make arrangements for cardiac catheterization. Patient is already on Eliquis anticoagulation aspirin and beta-ulises. Patient is discharged to follow with Dr. Royal. Vital Signs/Physical Exam: Temp Pulse Resp BP Pulse Ox 97.1 F 60 20 103/62 93 02/15/21 08:00 02/15/21 08:51 02/15/21 11:11 02/15/21 08:51 02/15/21 11:11 General: Alert, In no apparent distress, Oriented x3 HEENT: Mucous membr. moist/pink Neck: JVD not distended Respiratory: Clear to auscultation bilaterally, Normal air movement Cardiovascular: Regular rate/rhythm, Normal S1 S2 Gastrointestinal: Soft and benign, Non-distended Musculoskeletal: Other (Bilateral AKA) Integumentary: No rashes Neurological: Normal strength at 5/5 x4 extr Laboratory Data at Discharge: WBC Cancelled 02/14/21 Unknown Hgb Cancelled 02/14/21 Unknown Hct Cancelled 02/14/21 Unknown Plt Count Cancelled 02/14/21 Unknown PT 13.8 SECONDS (9.5-12.5) H 02/14/21 13:40 INR 1.20 02/14/21 13:40 Sodium Cancelled 02/14/21 Unknown Potassium Cancelled 02/14/21 Unknown BUN Cancelled 02/14/21 Unknown Creatinine Cancelled 02/14/21 Unknown Glucose Cancelled 02/14/21 Unknown Magnesium 2.1 mg/dL (1.8-2.4) 02/14/21 13:40 Total Bilirubin 0.5 mg/dL (0.2-1.0) 02/14/21 13:40 AST 13 U/L (15-37) L 02/14/21 13:40 ALT 16 U/L (12-78) 02/14/21 13:40 Alkaline Phosphatase 132 U/L (45-117) H 02/14/21 13:40 Troponin I < 0.02 ng/mL (0.0-0.045) 02/14/21 21:50 Triglycerides 109 mg/dL (<150) 02/14/21 13:40 Cholesterol 191 mg/dL (<200) 02/14/21 13:40 HDL Cholesterol 44 mg/dL (40-60) 02/14/21 13:40 Cholesterol/HDL Ratio 4.34 02/14/21 13:40 Home Medications: Amlodipine Besylate [Norvasc] 5 mg PO DAILY 11/19/18 Famotidine [Pepcid*] 20 mg PO DAILY 11/19/18 Gabapentin [Neurontin*] 300 mg PO TID 11/19/18 Metoclopramide HCl [Reglan] 10 mg PO TIDWM 11/19/18 Tamsulosin [Flomax*] 0.4 mg PO DAILY 11/19/18 lisinopriL [Prinivil*] 2.5 mg PO DAILY 11/19/18 Aspirin Chewable [Aspirin Chewable*] 81 mg PO BEDTIME 05/11/19 Atorvastatin Calcium [Lipitor] 80 mg PO DAILY 05/11/19 Hum Insulin NPH/Reg Insulin Hm [Humulin 70-30 Vial] 16 units SQ DAILY 05/11/19 Metoprolol Tartrate 25 mg PO BID #60 tablet 05/13/19 Apixaban [Eliquis *] 5 mg PO BID 08/01/19 Clopidogrel Bisulfate [Plavix*] 75 mg PO DAILY #30 tablet 08/01/19 Ondansetron HCl [Zofran] 4 mg PO Q8H 08/01/19 Pantoprazole Sodium [Protonix] 20 mg PO DAILY 08/01/19 Polyethylene Glycol 3350 [Miralax] 17 gm PO DAILY #30 powd.pack 08/01/19 Sennosides [Senna Laxative] 17.2 mg PO BID #60 tablet 08/01/19 Ascorbic Acid [Vitamin C] 500 mg PO TID #90 tab 02/15/21 Cholecalciferol (Vitamin D3) [Vitamin D3] 4,000 unit PO DAILY #60 capsule 02/15/21 Zinc Sulfate [Zinc Sulfate*] 220 mg PO DAILY #30 cap 02/15/21 New Medications: Ascorbic Acid [Vitamin C] 500 mg PO TID #90 tab Cholecalciferol (Vitamin D3) [Vitamin D3] 4,000 unit PO DAILY #60 capsule Zinc Sulfate [Zinc Sulfate*] 220 mg PO DAILY #30 cap Diet: AHA Activity: Ad nafisa Followup: Zoë Lou PA [Primary Care Provider] -
[2021-02-15 13:57] VITALS: BP 95/65; TEMP 98
--- NOTE | 2021-02-15 16:04 | ECHO ---
HEIGHT: 4 ft 3 in WEIGHT: 155 lb 0 oz DATE OF STUDY: 02/15/[address]: STEVO Riggs 2-DIMENSIONAL: YES M.MODE: YES DOPPLER: YES COLOR FLOW: YES TDS: NO PORTABLE: NO DEFINITY: NO BUBBLE STUDY: NO DIAGNOSIS: CHEST PAIN CARDIAC HISTORY: CATHERIZATION: YES SURGERY: YES PROSTHETIC VALVE: NO PACEMAKER: YES MEASUREMENTS (cm) DIASTOLIC (NORMALS) SYSTOLIC (NORMALS) IVSd 1.0 (0.6-1.2) LA Diam 3.9 (1.9-4.0) LVEF 40-45% LVIDd 4.4 (3.5-5.7) LVIDs 3.5 (2.0-3.5) %FS 21% LVPWd 1.0 (0.6-1.2) Ao Diam 2.6 (2.0-3.7) 2 DIMENSIONAL ASSESSMENT: RIGHT ATRIUM: NORMAL LEFT ATRIUM: NORMAL RIGHT VENTRICLE: NORMAL LEFT VENTRICLE: DEPRESSED TRICUSPID VALVE: MITRAL VALVE: PULMONIC VALVE: NORMAL AORTIC VALVE: NORMAL PERICARDIAL EFFUSION: TRACE AORTIC ROOT: NORMAL LEFT VENTRICULAR WALL MOTION: ANTEROSEPTAL AND ANTERIOR HYPOKINESIS. DOPPLER/COLOR FLOW: SEE BELOW COMMENTS: MILDLY DEPRESSED LEFT VENTRICULAR EJECTION FRACTION 40-45%. ANTEROSEPTAL AND ANTERIOR HYPOKINESIS. MODERATE MITRAL REGURGITATION. MILD TRICUSPID REGURGITATION. TECHNOLOGIST: Alvin WAY
== END 2021-02-15 16:14 | disposition home or self-care (01) | DRG 313 ==
LOC: ER 13:32 → SUPCPDRO 13:32 → ERHOLD 15:41 → 4TH 18:39
PROVIDERS: ADMIT Internal Medicine; ATTEND Internal Medicine
PROC: 0T9B70Z Drainage of Bladder with Drainage Device, Via Natural or Artificial Opening (ICD-10-PCS; principal; 2021-02-14)
DX: R07.89 Other chest pain (principal); U07.1 COVID-19; I10 Essential (primary) hypertension; E78.5 Hyperlipidemia, unspecified; E11.9 Type 2 diabetes mellitus without complications; K21.9 Gastro-esophageal reflux disease without esophagitis; F41.8 Other specified anxiety disorders; E03.9 Hypothyroidism, unspecified; M79.7 Fibromyalgia; I25.2 Old myocardial infarction; Z95.0 Presence of cardiac pacemaker; Z95.1 Presence of aortocoronary bypass graft; Z79.4 Long term (current) use of insulin; Z89.512 Acquired absence of left leg below knee; Z89.511 Acquired absence of right leg below knee
CPT/HCPCS: 36415; 71045; 80048; 80061; 80076; 82550; 82553; 82947; 83036; 83735; 83880; 84484; 85025; 85610; 93005; 93306; 94760; 96374; 96375; 99285; J1170; J1940; J2270; J2550; J2785; U0003

== ENCOUNTER 2021-03-31 22:28 | Emergency (ER) | payer OTHER ==
[2021-03-31] MEDS ORDERED: HYDROCODONE/APAP 5/325 MG TAB ONE (22:53)
[2021-03-31] MEDS ORDERED: GABAPENTIN 300 MG CAP ONE (22:54)
[2021-03-31 23:22] LABS: Absolute Lymphocytes (CBC) 1.3 K/uL (0.7-4.9); Basophils % 0.9 % (0-1.3); Hematocrit 31.1 % (39.6-49.0); Lymphocytes % 18.5 % (15.3-44.8); MPV 7.3 fL (7.6-11.3); RBC Red Blood Cell Count 3.57 M/uL (4.33-5.43)
[2021-03-31 23:36] LABS: ALT/SGPT 14 U/L (12-78); AST/SGOT 16 U/L (15-37); Albumin 2.3 g/dL (3.4-5.0); Alkaline Phosphatase 154 U/L (45-117); BUN Blood Urea Nitrogen 14 mg/dL (7-18); Bicarbonate 24 mmol/L (21-32); Bilirubin Direct 0.2 mg/dL (0-0.2); Bilirubin Total 0.4 mg/dL (0.2-1.0); Glucose Level 120 mg/dL (74-106); Magnesium 2.1 mg/dL (1.8-2.4); Potassium 3.9 mmol/L (3.5-5.1); Protein, Total 6.6 g/dL (6.4-8.2); Sodium Level 145 mmol/L (136-145); Troponin (Emerg Dept Use Only) < 0.02 ng/mL (0.0-0.045)
--- NOTE | 2021-03-31 23:41 | ER ---
Nurse's Notes [facility] Name: Ernie Rooney Age: 60 yrs Sex: Male : 1960 Arrival Date: 03/31/2021 Time: 22:34 Bed 6 Private MD: Diagnosis: Type 2 diabetes mellitus with diabetic neuropathy, unspecified Presentation: 03/31 22:35 Chief complaint: Patient states: "My right leg". dc2 22:35 Coronavirus screen: Vaccine status: Patient reports receiving the 2nd dose of the covid dc2 vaccine. Client denies travel out of the [place] in the last 14 days. Ebola Screen: Patient negative for fever greater than or equal to 101.5 degrees Fahrenheit, and additional compatible Ebola Virus Disease symptoms Patient denies exposure to infectious person. Patient denies travel to an Ebola-affected area in the 21 days before illness onset. No symptoms or risks identified at this time. Initial Sepsis Screen: Does the patient meet any 2 criteria? No. Patient's initial sepsis screen is negative. Does the patient have a suspected source of infection? No. Patient's initial sepsis screen is negative. Risk Assessment: Do you want to hurt yourself or someone else? Patient reports no desire to harm self or others. Onset of symptoms was March 31, 2021 at 15:00. 22:35 Method Of Arrival: EMS: [facility] dc2 22:35 Acuity: TONE 3 dc2 Triage Assessment: 22:30 General: Appears uncomfortable, slender, Behavior is cooperative, crying, Screaming out dc2 in pain with loud moaning. 22:30 Pain: Complains of pain in right Leg. Neuro: No deficits noted. Denies weakness dc2 dizziness, headache. Respiratory: No deficits noted. Airway is patent Breath sounds are clear bilaterally. GI: No deficits noted. No signs and/or symptoms were reported involving the gastrointestinal system. Abdomen is non-distended, Bowel sounds present X 4 quads. : No signs and/or symptoms were reported regarding the genitourinary system. Derm: No deficits noted. No signs and/or symptoms reported regarding the dermatologic system. Musculoskeletal: Amputation of Double BKA. Historical: - Allergies: 22:30 NKA; dc2 - PMHx: 22:30 Arthritis; Back pain; CVA; Depression; Diabetes - NIDDM; Fibromyalgia; High dc2 Cholesterol; Hyperlipidemia; GERD; Hypertension; Hypothyroidism; Left sided weakness from previous CVA; Myocardial infarction; Pacemaker; - PSHx: 22:30 bilat BKA's; dc2 - Immunization history:: Adult Immunizations up to date, Client reports receiving the 2nd dose of the Covid vaccine. - Social history:: Smoking status: Patient/guardian denies using tobacco, the patient reports quitting approximately 20 years ago, Patient uses Patient/guardian denies using alcohol, street drugs, IV drugs, tobacco products. Screenin:30 Abuse screen: Denies threats or abuse. Denies injuries from another. Nutritional dc2 screening: No deficits noted. Tuberculosis screening: No symptoms or risk factors identified. Never had TB. Fall Risk None identified. No fall in past 12 months (0 pts). Secondary diagnosis (15 points) IV access (20 points). Ambulatory Aid- None/Bed Rest/Nurse Assist (0 pts). Gait- Impaired (20 pts.). Mental Status- Oriented to own ability (0 pts). Assessment: 22:15 Pain: Complains of pain in right leg ( BKA) Pain does not radiate. Pain began dc2 gradually, started hurting real bad around 3pm today. 22:15 Neuro: No deficits noted. Level of Consciousness is awake, alert, obeys commands, dc2 confused, Oriented to person, place, time, situation. 22:15 Cardiovascular: No deficits noted. Reports nausea, Denies chest pain, lightheadedness, dc2 shortness of breath, Heart tones present Rhythm is Respiratory: No deficits noted. Breath sounds are clear bilaterally. GI: Abdomen is non-distended, Bowel sounds present X 4 quads. : No signs and/or symptoms were reported regarding the genitourinary system. Derm: No signs and/or symptoms reported regarding the dermatologic system. Musculoskeletal: No deficits noted. Amputation of rick bka. Reports pain in Right lower limb Pain is 10 out of 10 on a pain scale. 23:30 Reassessment: pt co pain , states it only touched it but the pain is coming back strong dc2 now. Will notify MD of concerns/. Vital Signs: 22:15 BP 113 / 102; Pulse 88; Resp 22; Pulse Ox 100% ; Pain 10/10; dc2 22:35 BP 113 / 101; Pulse 88; Resp 22; Temp 97.5; Pulse Ox 100% on R/A; Weight 72.57 kg; dc2 Height 5 ft. 7 in. (170.18 cm); Pain 10/10; 23:00 BP 123 / 75; Pulse 80; Resp 18; Pain 8/10; dc2 23:46 BP 129 / 97; Pulse 83; Resp 22; Pulse Ox 100% on R/A; Pain 8/10; dc2 22:35 Body Mass Index 25.06 (72.57 kg, 170.18 cm) dc2 ED Course: 22:15 No provider procedures requiring assistance completed. Maintain EMS IV. Dressing dc2 intact. Site clean \\T\\ dry. Gauge \\T\\ site: Left Forearm 20g. 22:15 Patient maintains SpO2 saturation greater than 95% on room air. dc2 22:15 Fall risk band placed. Bed in low position. Call light in reach. Side rails up X2. dc2 public health nutritionist on. Pulse ox on. NIBP on. 22:15 Arm band placed on left wrist. dc2 22:34 Patient arrived in ED. cf2 22:35 Anne-Marie Martin MD is Attending Physician. sp3 22:39 Magalis Avendano, SHEBA is Primary Nurse. dc2 22:42 Triage completed. dc2 22:44 ED physician to see patient. dc2 22:58 Basic Metabolic Panel Sent. dc2 22:58 Basic Metabolic Panel Sent. dc2 22:58 XRAY Chest (1 view) Sent. dc2 22:59 CBC with Diff Sent. dc2 22:59 LFT's Sent. dc2 22:59 Magnesium Sent. dc2 22:59 Troponin (emerg Dept Use Only) Sent. dc2 23:05 Patient has correct armband on for positive identification. Warm blanket given. Pt dc2 refuse gown, ask for warm blankets x3. 23:11 XRAY Chest (1 view) In Process Unspecified. EDMS 23:39 Luca Royal MD is Referral Physician. sp3 23:57 IV discontinued, intact, bleeding controlled, No redness/swelling at site. Pressure dc2 dressing applied. Administered Medications: 22:58 Drug: HYDROcodone-acetaminophen 5 mg-325 mg 2 tabs Route: PO; dc2 23:54 Follow up: Response: Pain is unchanged, physician notified dc2 22:58 Drug: Neurontin (gabapentin) 300 mg Route: PO; dc2 23:54 Follow up: Response: Pain is unchanged, physician notified dc2 23:49 Drug: Ketorolac 30 mg Route: IVP; Site: left forearm; dc2 23:54 Follow up: Response: Medication administered at discharge. dc2 Outcome: 23:40 Discharge ordered by . sp3 23:57 Discharged to home ambulatory, via wheelchair. dc2 23:57 Condition: stable 23:57 Condition: stable 23:57 Discharge instructions given to patient, Instructed on discharge instructions, follow up and referral plans. Demonstrated understanding of instructions, follow-up care, Prescriptions given X 1. 23:57 Patient left the ED. dc2 Signatures: Dispatcher [employer] EDMS Antoni Akhtar cf2 Anne-Marie Martin MD MD sp3 Magalis Avendano RN RN dc2
--- NOTE | 2021-03-31 23:41 | EDPHYS ---
Physician Documentation [facility] Name: Ernie Rooney Age: 60 yrs Sex: Male : 1960 Arrival Date: 03/31/2021 Time: 22:34 Bed 6 Private MD: ED Physician Anne-Marie Martin HPI: 03/31 22:51 This 60 yrs old Male presents to ER via EMS with complaints of Leg Pain, Chest sp3 Pain. 22:51 . 60-year-old male with extensive past medical history including diabetes, sp3 hypertension, hyperlipidemia, CAD, bilateral BKA, fibromyalgia, and other PMH now presents to the ED for bilateral lower extremity stump pain and mild chest pain for 2 days. Patient denies injury or any trauma. Patient denies headache, neck pain, fever, shortness of breath, abdominal pain, rash, extremity swelling, any other ROS at this time. Patient states the pain in his legs is like "nerve pain" and comes in shooting and stabbing episodes the last secondary to recur several times a minute and varying frequency. Chest pain is diffuse and is "barely there". Patient has not been on any of his medications for 2 months because he states that he is switching doctors because his previous PCP in [place] stop seeing him due to missed appointments.. Historical: - Allergies: 22:30 NKA; dc2 - PMHx: 22:30 Arthritis; Back pain; CVA; Depression; Diabetes - NIDDM; Fibromyalgia; High dc2 Cholesterol; Hyperlipidemia; GERD; Hypertension; Hypothyroidism; Left sided weakness from previous CVA; Myocardial infarction; Pacemaker; - PSHx: 22:30 bilat BKA's; dc2 - Immunization history:: Adult Immunizations up to date, Client reports receiving the 2nd dose of the Covid vaccine. - Social history:: Smoking status: Patient/guardian denies using tobacco, the patient reports quitting approximately 20 years ago, Patient uses Patient/guardian denies using alcohol, street drugs, IV drugs, tobacco products. ROS: 22:53 Constitutional: Negative for fever, chills, and weight loss, Eyes: Negative for injury, sp3 pain, redness, and discharge, Neck: Negative for injury, pain, and swelling, Respiratory: Negative for shortness of breath, cough, wheezing, and pleuritic chest pain, Abdomen/GI: Negative for abdominal pain, nausea, vomiting, diarrhea, and constipation, Back: Negative for injury and pain, Neuro: Negative for headache, weakness, numbness, tingling, and seizure. 22:53 MS/extremity: Positive for Stump sites appear normal without any signs of infection. There is no swelling and no pain in the groin. There are no signs of infection or erythema.. Exam: 23:41 ECG was reviewed by the Attending Physician. EKG demonstrates paced rhythm at 83 bpm sp3 with adequate capture. Vital Signs: 22:15 BP 113 / 102; Pulse 88; Resp 22; Pulse Ox 100% ; Pain 10/10; dc2 22:35 BP 113 / 101; Pulse 88; Resp 22; Temp 97.5; Pulse Ox 100% on R/A; Weight 72.57 kg; dc2 Height 5 ft. 7 in. (170.18 cm); Pain 10/10; 23:00 BP 123 / 75; Pulse 80; Resp 18; Pain 8/10; dc2 23:46 BP 129 / 97; Pulse 83; Resp 22; Pulse Ox 100% on R/A; Pain 8/10; dc2 22:35 Body Mass Index 25.06 (72.57 kg, 170.18 cm) dc2 MDM: 22:40 Patient medically screened. sp3 22:54 Data reviewed: vital signs, nurses notes. ED course: 60-year-old male with lower sp3 extremity stump pain and noncompliance of medications secondary to being in between physicians. Patient has extensive past medical history but at this time I am not highly suspicious that patient is having acute coronary syndrome or myocardial infarction. Will obtain laboratory values, EKG, chest x-ray and administer [place] p.o. and Neurontin p.o. for neuropathy pain. Also clinically ruled out pulmonary embolism, thoracic aortic dissection, AAA, sepsis, pneumonia, mesenteric ischemia, or any other embolic event, or any other critical findings at this time. Patient states he has a plan to find a new doctor including name that he will be calling to schedule. Plan is to discharge patient if his laboratory values indicate no critical findings. At this time I would not be able to prescribe any medications as he needs a full evaluation and a full set of new medications which is not in the scope of the emergency department at this time.. 23:39 ED course: Laboratory values reviewed and demonstrate no acute significant abnormality. sp3 Will discharge patient home at this time on Neurontin and he can follow-up with his PCP and new physicians.. 03/31 22:48 Order name: Basic Metabolic Panel 3 03/31 22:48 Order name: CBC with Diff; Complete Time: 23:31 3 03/31 22:48 Order name: LFT's; Complete Time: 23:38 3 03/31 22:48 Order name: Magnesium; Complete Time: 23:38 3 03/31 22:48 Order name: Troponin (emerg Dept Use Only); Complete Time: 23:38 3 03/31 22:49 Order name: Basic Metabolic Panel; Complete Time: 23:38 EDMS 03/31 22:48 Order name: XRAY Chest (1 view) 3 03/31 22:48 Order name: EKG; Complete Time: 22:49 3 03/31 22:48 Order name: Cardiac monitoring; Complete Time: 22:58 3 03/31 22:48 Order name: EKG - Nurse/Tech; Complete Time: 22:58 3 03/31 22:48 Order name: IV Saline Lock; Complete Time: 22:51 3 03/31 22:48 Order name: Labs collected and sent; Complete Time: 22:59 3 03/31 22:48 Order name: O2 Per Protocol; Complete Time: 22:51 3 03/31 22:48 Order name: O2 Sat Monitoring; Complete Time: 22:51 3 Administered Medications: 22:58 Drug: HYDROcodone-acetaminophen 5 mg-325 mg 2 tabs Route: PO; dc2 23:54 Follow up: Response: Pain is unchanged, physician notified dc2 22:58 Drug: Neurontin (gabapentin) 300 mg Route: PO; dc2 23:54 Follow up: Response: Pain is unchanged, physician notified dc2 23:49 Drug: Ketorolac 30 mg Route: IVP; Site: left forearm; dc2 23:54 Follow up: Response: Medication administered at discharge. dc2 Disposition Summary: 03/31/21 23:40 Discharge Ordered Location: Home sp3 Condition: Stable sp3 Diagnosis - Type 2 diabetes mellitus with diabetic neuropathy, unspecified sp3 Followup: sp3 - With: Private Physician - When: - Reason: Recheck today's complaints Followup: sp3 - With: Luca Royal MD - When: As needed - Reason: Recheck today's complaints Discharge Instructions: - Discharge Summary Sheet sp3 - Neuropathic Pain sp3 Forms: - Medication Reconciliation Form sp3 - Thank You Letter sp3 - Antibiotic Education sp3 - Prescription Opioid Use sp3 Prescriptions: - Neurontin 300 mg Oral Capsule - take 1 capsule by ORAL route At bedtime; 20 capsule; Refills: 0, Product sp3 Selection Permitted Signatures: Dispatcher [employer] EDMS Anne-Marie Martin MD MD sp3 Romana, SHEBA Blancas RN dc2 Corrections: (The following items were deleted from the chart) 22:56 22:54 ED course: 60-year-old male with lower extremity stump pain and noncompliance of sp3 medications secondary to being in between physicians. Patient has extensive past medical history but at this time I am not highly suspicious that patient is having acute coronary syndrome or myocardial infarction. Will obtain laboratory values, EKG, chest x-ray and administer [place] p.o. and Neurontin p.o. for neuropathy pain. Also clinically ruled out pulmonary embolism, thoracic aortic dissection, AAA, sepsis, pneumonia, mesenteric ischemia, or any other embolic event, or any other critical findings at this time. Patient states he has a plan to find a new doctor including name that he will be calling to schedule.. sp3
[2021-03-31] MEDS ORDERED: KETOROLAC 30 MG/ML INJ ONE (23:45)
[2021-04-01 00:31] VITALS: TEMP 97.5; O2SAT 100
[2021-04-01 00:34] VITALS: BP 129/97
--- NOTE | 2021-04-01 10:07 | RAD REPORT ---
EXAM DESCRIPTION: RAD - Chest Single View - 03/31/2021 11:11 pm CLINICAL HISTORY: CHEST PAIN COMPARISON: Chest Single View dated 02/14/2021; Chest Single View dated 07/31/2019; Chest Single View dated 05/11/2019; Chest Single View dated 01/01/2019 FINDINGS: Lines: None. Lungs: Low lung volumes with again noted prominence of the pulmonary vasculature. Pleural: No significant pleural effusions or pneumothorax. Cardiac: Cardiomegaly. Pacemaker. Bones: No acute fractures. Other: Vascular stent overlying the superior mediastinum. IMPRESSION: Low lung volumes likely accentuating the pulmonary vasculature. Edema difficult to entir anjana exclude.
--- NOTE | 2021-04-02 20:41 | EKG ---
Test Date: 2021-03-31 Test Time: 23:06:54 [employer] System Admin: RICHI MEASUREMENT RESULTS: Intervals: Rate: 83 WV: 190 QRSD: 160 QT: 454 QTc: 533 [place]: P: 39 WV: 190 QRS: -54 T: 120 INTERPRETIVE STATEMENTS: Electronic ventricular pacemaker Compared to ECG 02/15/2021 09:35:30 No significant changes Electronically Signed On 04-02-21 20:35:32 RECOVERY OPERATOR by Luca Royal
--- OUTSIDE RECORDS SUMMARY | 2021-04-03 21:18 | XMS REPORT | Continuity of Care Document ---
:1960 Author Organization [facility] t Address [address] [place] [address] Care Team Providers Name Role Phone FRANSISCO ELAM Primary Care Physician Unavailable Harshal Zhu Attending Clinician Unavailable Tamir Shah Attending Clinician Unavailable DONALDO, A Attending Clinician Unavailable IVANA Attending Clinician Unavailable Love SCRUGGS, A Attending Clinician Unavailable Juan José HALL Attending Clinician Humaira HALL Attending Clinician Doctor Unassigned, Name Attending Clinician Unavailable Mehdi SCRUGGS Attending Clinician Unavailable Garfield Mujica Attending Clinician Ronald MENDOZA Attending Clinician Debi Attending Clinician Unavailable Radiology Attending Clinician Unavailable RADIOLOGY Attending Clinician Unavailable Ching HALL Attending Clinician CHING Attending Clinician Unavailable Ivana HALL Attending Clinician Ibikunle HEALTH INSURANCE SPECIALIST, F Attending Clinician Manolo SCRUGGS Attending Clinician Rebecca HALL Attending Clinician Brooks MENDOZA Attending Clinician Jose HALL Attending Clinician Liz HALL Attending Clinician Marixa HALL Attending Clinician Toam Gunter MD Attending Clinician TOMA GUNTER Attending Clinician Unavailable THEO JAIME Attending Clinician Unavailable KNOW Attending Clinician Unavailable Andrey Montanez Attending Clinician Unavailable Singer MENDOZA Attending Clinician Brendan HALL Attending Clinician Jonah Lazaro MD Attending Clinician Scarlet Skinner MD Attending Clinician Supriya Goodson DO Attending Clinician Del HALL Attending Clinician Cara HALL Attending Clinician GISELA SHEARER Attending Clinician Unavailable Gisela Shearer MD Attending Clinician Benji HALL Attending Clinician Gianluca HALL Attending Clinician Phani Najera DO Attending Clinician Golden HALL Attending Clinician ANNA, K.H. Attending Clinician Unavailable HUMAIRA Attending Clinician Unavailable Brendan Velazquez MD Attending Clinician Jaimee HALL Attending Clinician Garfield Carrillo MD Attending Clinician Garfield CARRILLO Attending Clinician Unavailable Anna HALL, K.H. Attending Clinician Troy Elam Attending Clinician Rosa HALL Attending Clinician Luis PALOMO Attending Clinician James Attending Clinician TRAVIS Attending Clinician Unavailable Storm HALL Attending Clinician LOAN SHIRLEY Attending Clinician Unavailable Rober RAE, Loan Attending Clinician Nova RAE, Thanh Attending Clinician Emy SCRUGGS Attending Clinician Malia HALL, Beth Arreola Attending Clinician [phone] Ashley Allen MD Attending Clinician BROOKE Attending Clinician Unavailable Andrew MONTES DE OCA Attending Clinician Unavailable PHILIP Attending Clinician Unavailable Troy Elam Admitting Clinician Unavailable KNOW Admitting Clinician Unavailable Physician, Primary or Family Admitting Clinician Unavailjessica Gerardo MD Admitting Clinician Ronald MENDOZA Admitting Clinician Debi Admitting Clinician Unavailable Rebecca HALL Admitting Clinician Liz HALL Admitting Clinician Andrey Montanez Admitting Clinician Unavailable Jonah Lazaro MD Admitting Clinician Cara HALL Admitting Clinician Gisela Shearer MD Admitting Clinician Benji HALL Admitting Clinician Jaimee HALL Admitting Clinician Garfield CARRILLO Admitting Clinician Unavailable Storm HALL Admitting Clinician LOAN SHIRLEY Admitting Clinician Unavailable Rober RAE, Loan Admitting Clinician Beth Finley MD Admitting Clinician [phone] BROOKE Admitting Clinician Unavailable PHILIP Admitting Clinician Unavailable Payers Payer Name Policy Type Policy Number Effective Date Expiration Date Garfield daugherty Physician Practice [employer] [id number] 2018spring 00:00:00 [employer] [id number] 2004 LUCY Frankel 00:00:00 [facility] Advance Directives Directive Decision Effective Termination Comments Source Date Date Healthcare Agents on N/A Univ ersity [facility] Agent Medical RelationshipCommunicationHortencia Branch EstradaMotherHealth Care [phone] (Mobile) Problems Condition Condition Condition Status Onset Resolution Last Treating Co mments Source Name Details Category Date Date Treatment Clinician Date Pulmonary Pulmonary Disease Active Uni vers hypertensi hypertensi 8-16 it y of on on 00:00: [place] 00 Medical Branch IRVING IRVING Disease Active Univers (dyspnea (dyspnea 8-15 ity of on on 00:00: [place] exertion) exertion) 00 [facility] Branch Pleural Pleural Disease Active Univers effusion, effusion, 8-13 [place] of bilateral [place] CHF CHF Disease Active Univers (congestiv (congestiv 5-05 it y of e heart e heart 00:00: [place] failure), failure), 00 [facility] NYHA class NYHA class Br anch I, acute I, acute on on chronic, chronic, combined combined Hypotensio Hypotensio Disease Active U nivers n n 4-15 ity of 00:00: [place] 00 Medical Branch Sepsis Sepsis Disease Active Univers 4-14 ity of 00:00: [place] 00 Medical Branch Right leg Right leg Disease Active Uni vers pain pain 3-09 ity of 00:00: [place] 00 Medical Branch Acute on Acute on Disease Active Unive rs chronic chronic 3-09 ity of diastolic diastolic 00:00[place] (congestiv (congestiv 00 Me dical e) heart e) heart Branch failure failure Chest pain Chest pain Disease Active U nivers 3-08 ity of 00:00: [place] 00 Medical Branch Acute on Acute on Disease Active Unive rs chronic chronic 3-08 ity of diastolic diastolic 00:00[place] congestive congestive 00 Me dical heart heart Branch failure failure PAD PAD Disease Active Univers (periphera (periphera 3-08 it y of l artery l artery 00:00: [place] disease) disease) 00 Medica l Branch Anemia Anemia Disease Active Univers 3-08 ity of 00:00: [place] Medical [facility] Obesity Obesity Disease Active Univers (BMI (BMI 2-23 ity of 30-39.9) 30-39.9) 00:00: Medical Branch Diabetic Diabetic Disease Active Unive rs foot foot 2-19 ity of infection infection 00:00[place] Osteomyeli Osteomyeli Disease Active 2019-05 U nivers tis tis 0-26 ity of 00:00: [place] [facility] Preop Preop Disease Active 2019- Univers cardiovasc cardiovasc 0-26 it y of ular exam ular exam 00:00[place] Chronic Chronic Disease Active 2019-05 Univers diastolic diastolic 0-26 ity of congestive congestive 00:00[place] heart heart 00 Medical failure failure Branch KALYN (acute KALYN (acute Disease Active 2019-05 U nivers kidney kidney 0-26 ity of injury) injury) 00:00: 00 Medical Branch Left foot Left foot Disease Active 2019-05 Overview: Univers pain pain 0-25 Formattin ity of 00:00: g of this 00 note Medical might be Branch different from the original. Added automatic ally from request for surgery [id number] Troponin I Troponin I Disease Active 2020-0 U nivers above above 9-16 ity of reference reference 00:00[place] range range 00 [place] Pleural Pleural Disease Active 2020- Univers effusion effusion 9-15 ity of 00:00: 00 Medical Branch Elevated Elevated Disease Active 2019- Unive rs brain brain 9-15 ity of natriureti natriureti 00:00[place] c peptide c peptide 00 Medi uriel (BNP) (BNP) Branch level level Chest pain Chest pain Disease Active 2020-0 U nivers in adult in adult 9-14 ity of 00:00: Medical Branch Cellulitis Cellulitis Disease Active 2020-0 U nivers of left of left 6-27 ity of foot foot 00:00: [place] 00 Medical Branch Pacemaker Pacemaker Disease Active 2020- Uni vers 3-18 ity of 00:00: [place] 00 Medical Branch PAF PAF Disease Active 2020- Univers (paroxysma (paroxysma 3-18 it y of l atrial l atrial 00:00: [place] fibrillati fibrillati 00 Me dical on) on) Branch Abdominal Abdominal Disease Active Uni vers pain pain 2-27 ity of 00:00: [place] [facility] Pacemaker Pacemaker Disease Active Uni vers malfunctio malfunctio 2-04 it y of n n 00:00: [place] 00 Medical Branch Cellulitis Cellulitis Disease Active 2018-05 U nivers 1-19 ity of 00:00: [place] [facility] Arterioven Arterioven Disease Active U nivers ous ous 9-25 ity of fistula of fistula of 00:00: [place] right right 00 Medical femoral femoral Branch vessels vessels NSTEMI NSTEMI Disease Active Univers (non-ST (non-ST 9-05 ity of elevated elevated 00:00: [place] myocardial myocardial 00 Me dical infarction infarction Br anch ) ) NSTEMI NSTEMI Disease Active Univers (non-ST (non-ST 9-05 ity of elevated elevated 00:00: [place] myocardial myocardial 00 Me dical infarction infarction Br anch ) ) Coronary Coronary Disease Active Unive rs artery artery 8-29 ity of disease disease 00:00: [place] involving involving 00 Medi uriel [place] Branch coronary coronary artery of artery of [place] heart with heart with angina angina pectoris pectoris Coronary Coronary Disease Active Unive rs artery artery 8- ity of disease disease 00:00: [place] involving involving 00 Medi uriel [place] Branch coronary coronary artery of artery of [place] heart with heart with angina angina pectoris pectoris Type 2 Type 2 Disease Active Univers diabetes diabetes 8 ity of mellitus mellitus 00:00: [place] without without 00 Medical complicati complicati Br anch on, on, without without long-term long-term current current use of use of insulin insulin Essential Essential Disease Active Uni vers hypertensi hypertensi 8- it y of on on 00:00: [place] [facility] Other Other Disease Active Univers hyperlipid hyperlipid 8 it y of emia emia 00:00: [place] [facility] Stroke Stroke Disease Active Univers 5-12 ity of 00:00: [place] [facility] Left-sided Left-sided Disease Active U nivers weakness weakness 5-11 ity of 00:00: [place] 00 Medical Branch Left sided Left sided Disease Active U nivers numbness numbness 5-11 ity of 00:00: Medical Branch S/P admn S/P admn Disease Active Unive rs tPA in tPA in 4-11 ity of diff fac diff fac 00:00: w/n last w/n Medica l 24 hr bef 24 hr bef Bran ch adm to adm to crnt fac crnt fac Unstable Unstable Disease Active Unive rs angina angina 4-10 ity of 00:00: Medical Branch Atypical Atypical Disease Active Unive rs chest pain chest pain 2-22 it y of 00:00: [facility] Branch Chest pain Chest pain Disease Active U nivers 2-22 ity of 00:00: [facility] Branch Chest pain Chest pain Problem Active [facility] 00 [facility] Coronary CAD Problem Active [facility] artery (coronary [facility] - disease artery Patient disease) [facility] Diabetic DKA Problem Active [facility] ketoacidos (diabetic Esme es - is ketoacidos Patien t es) [facility] Hyperglyce Hyperglyce Problem Active [facility] bambi bambi [facility] Patient [facility] Hypertensi Hypertensi Problem Active [facility] on [facility] Patient [facility] Pancreatit Pancreatit Problem Active [facility] is is [facility] Patient [facility] Uncontroll Uncontroll Problem Active [facility] ed ed [facility] - diabetes diabetes Patien t mellitus mellitus [facility] Allergies, Adverse Reactions, Alerts Allergy Allergy Status Severity Reaction(s) Onset Inactive Treating Comm ents Source Name Type Date Date Clinician No Known DA Active U [facility] 3- [place] 00:[facility]: d [facility] No Known DA Active U [facility] Allergie 3-22 [place] 00:00: d [facility] No Known DA Active U 2017-05 [facility] Allergie 2- Clear s 00:00: [facility] No Known DA Active U 2017-05 [facility] Allergie 2-31 Clear s 00:00: [facility] No Known DA Active U [facility]ie 3- [place] [facility] NO KNOWN Drug Active Univers ALLERGIE Class ity of S [facility] Social History Social Habit Start Date Stop Date Quantity Comments Source Exposure to Not sure University of SARS-CoV-2 [place] Medical (event) Branch History of Cigarette Smoker Universi ty of tobacco use [facility] Tobacco use and 2021-01-02 2021-01-02 Never used Universit y of exposure 00:00:00 00:00:00 [facility] Alcohol intake 2021-01-02 2021-01-02 Current University of 00:00:00 00:00:00 non-drinker of [facility] alcohol (finding) Branch Tobacco Comment 2021-01-01 2021-01-01 quit 7 years ago Uni versity of 00:00:00 00:00:00 [facility] Branch History SDOH 2020-03-16 2020-03-16 3 University o f Financial 00:00:00 00:00:00 [place] [facility] History SDOH Food 2020-03-16 2020-03-16 2 Univers ity of Worry 00:00:00 00:00:00 [facility] Branch History SDOH Food 2020-03-16 2020-03-16 2 Univers ity of Scarcity 00:00:00 00:00:00 [facility] Branch History SDOH 2020-03-16 2020-03-16 1 University o f Transport Med 00:00:00 00:00:00 [place] [facility] Branch History SDOH 2020-03-16 2020-03-16 1 University o f Transport Non-Med 00:00:00 00:00:00 [facility] [place] edical [place] Alcohol Comment 2019-07-18 2019-07-18 quit drinking Univ sity of 00:00:00 00:00:00 2014 but drank [facility] heavily before Branch this Sex [birth year] At [birth year] Universit y of 00:00:00 00:00:00 [facility] Smoking Status Start Date Stop Date Source Unknown if ever smoked Universit y [facility] Former smoker 2021-01-02 00:00:00 2021-01-02 00:00:00 Universi ty [facility] Medications Ordered Filled Start Stop Current Ordering Indication Dosage Frequency Signature Comments Components Source Medication Medication Date Date Medication? Clinician (SIG) Name Name fenofibrate Yes 200mg Take 200 U nivers micronized 8-16 mg by ity of 200 mg 23:12: mouth [place] capsule 14 daily with Medica l breakfast. Branch spironolact 0 Yes 25mg Take 25 mg Univers one 25 mg 8-16 by mouth ity of tablet 23:12: daily. [place] [address] Medical Branch venlafaxine 0 Yes 75mg Take 75 mg Univers 75 mg 8-16 by mouth 2 ity of tablet 23:12: (two) [place] 14 times Medical daily. Branch atorvastati 0 Yes 40mg Take 40 mg Univers n 40 mg 8-16 by mouth ity of tablet 23:12: at [place] [address] bedtime. Medical Branch gabapentin 0 Yes 800mg Take 800 Un char[place] 800 mg 8-16 mg by ity of tablet 23:12: mouth 3 [place] 14 (three) Medical times Branch daily. omeprazole 0 Yes 20mg Take 20 mg U nivers 20 mg 8-16 by mouth ity of capsule 23:12: daily. [place] [address] Medical Branch lisinopriL Yes 2.5mg Take 2.5 Un charley 2.5 mg 8-16 mg by ity of tablet 23:12: mouth [place] 14 daily. Medical Branch levothyroxi 0 Yes 50ug Take 50 Uni vers ne 50 mcg 8-16 mcg by ity of tablet 23:12: mouth [place] 14 every Medical morning. Branch ASPIRIN 0 Yes Take by Univer s ORAL 8-16 mouth ity of 23:12: daily. [place] [address] Medical Branch glipiZIDE 0 Yes 10mg Take 10 mg Un charley 10 mg 8-16 by mouth ity of tablet 23:12: daily. [place] [address] Medical Branch metFORMIN 0 Yes 500mg Take 500 Uni vers 500 mg 8-16 mg by ity of tablet 23:12: mouth [place] 14 daily. Medical Branch tamsulosin 0 Yes Take by Uni vers 0.4 mg 24 8-16 mouth ity of hr capsule 23:12: daily. [place] [address] Medical Branch fenofibrate 0 Yes 200mg Take 200 U nivers micronized 8-16 mg by ity of 200 mg 23:12: mouth [place] capsule 14 daily with Medica l breakfast. Branch spironolact Yes 25mg Take 25 mg Univers one 25 mg 8-16 by mouth ity of tablet 23:12: daily. [place] [address] Medical Branch venlafaxine Yes 75mg Take 75 mg Univers 75 mg 8-16 by mouth 2 ity of tablet 23:12: (two) [place] [address] times Medical daily. Branch atorvastati Yes 40mg Take 40 mg Univers n 40 mg 8-16 by mouth ity of tablet 23:12: at [place] [address] bedtime. Medical Branch gabapentin 0 Yes 800mg Take 800 Un char[place] 800 mg 8-16 mg by ity of tablet 23:12: mouth 3 [place] 14 (three) Medical times Branch daily. omeprazole Yes 20mg Take 20 mg U nivers 20 mg 8-16 by mouth ity of capsule 23:12: daily. [place] [address] Medical Branch lisinopriL Yes 2.5mg Take 2.5 Un charley 2.5 mg 8-16 mg by ity of tablet 23:12: mouth [place] [address] daily. Medical Branch levothyroxi Yes 50ug Take 50 Uni vers ne 50 mcg 8-16 mcg by ity of tablet 23:12: mouth [place] [address] every Medical morning. Branch ASPIRIN Yes Take by Univer s ORAL 8-16 mouth ity of 23:12: daily. [place] [address] Medical Branch glipiZIDE Yes 10mg Take 10 mg Un charley 10 mg 8-16 by mouth ity of tablet 23:12: daily. [place] [address] Medical Branch metFORMIN Yes 500mg Take 500 Uni vers 500 mg 8-16 mg by ity of tablet 23:12: mouth [place] [address] daily. Medical Branch tamsulosin Yes Take by Uni vers 0.4 mg 24 8-16 mouth ity of hr capsule 23:12: daily. [place] [address] Medical Branch tc 2020- No [id number] 44mCi 44 Univers 99m-tetrofo 01-04 millicurie i ty of smin 17:00: 16:47 , [place] (MYOVIEW) 00 :00 Intravenou Medi uriel injection s, ONCE, 1 Bran ch 44 dose, Mon millicurie 01/04/21 at 1200, Routine tc 2020- No [id number] 15.2mCi 15.2 Unive rs 99m-tetrofo 8-16 08-16 millicurie i ty of smin 15:45: 15:35 , [place] (MYOVIEW) 00 :00 Intravenou Medi uriel injection s, ONCE, 1 Bran ch 15.2 dose, [facility] millicurie 01/04/21 at 1045, Routine furosemide 2020-0 Yes 40mg 40 mg, IV Un charley (LASIX) 16 Push, ity of injection 14:00: QAM+PM, [place] 40 mg 00 First dose Medical (after Branch last modificati on) on Mon01/04/21 at 0900, Until Discontinu ed, PIERRE metoprolol 2020- Yes 25mg 25 [facility], [facility] Oral, ity of XL (TOPROL 14:00: DAILY, [place] XL) tablet 00 First dose Med ical 25 mg (after Branch last modificati on) on Mon01/04/21 at 0900, Until Discontinu ed, Routine NaCl 0.9% 2020-0 2020- No 250mL at 999 [facility] ers (NS) bolus 01-04 08-16 mL/hr, 250 it y of infusion 09:30: 08:29 mL, IV [place] 250 mL 00 :00 Infusion, Medical ONCE, 1 Branch dose, [facility] 01/04/21 at 0430, Routine NaCl 0.9% 2020-0 2020- No 250mL at 999 [facility] ers (NS) bolus 01-04 08-16 mL/hr, 250 it y of infusion 08:30: 07:30 mL, IV [place] 250 mL 00 :00 Infusion, Medical ONCE, 1 Branch dose, [facility] 01/04/21 at 0330, Routine atorvastati 2020-0 Yes 80mg 80 mg, Univ ers n (LIPITOR) 16 Oral, QHS, it y of tablet 80 02:00: First dose [place] mg 00 (after Medical last Branch modificati on) on [place] 01/03/21 at 2100, Until Discontinu ed, Routine fenofibrate 2020-0 Yes 67mg 67 mg, [facility] ers micronized -14 Oral, ity of (LOFIBRA) 14:00: DAILY, [place] capsule 67 00 First dose Med ical mg on Sat Branch 01/02/21 at 0900, Until Discontinu ed, Routine tamsulosin 2020-0 Yes .4mg 0.4 mg, Univ ers (FLOMAX) 8-14 Oral, ity of capsule 0.4 14:00: DAILY, [place] mg 00 First dose Medical on [facility] 01/02/21 at 0900, Until Discontinu ed, Routine omeprazole 2020-0 Yes 20mg 20 mg, Unive rs (PRILOSEC) 8-14 Oral, ity of capsule 20 14:00: DAILY, [place] mg 00 First dose Medical on [facility] 01/02/21 at 0900, Until Discontinu ed, Routine lisinopriL 0 Yes 2.5mg 2.5 mg, Uni vers (PRINIVIL,Z 8-14 Oral, ity of ESTRIL) 14:00: DAILY, [place] tablet 2.5 00 First dose Med ical mg on [facility] 01/02/21 at 0900, Until Discontinu ed, Routine gabapentin 0 Yes 800mg 800 mg, Uni vers (NEURONTIN) 8-14 Oral, TID, it y of tablet 800 13:00: First dose [place] mg 00 on [facility] 01/02/21 at Branch 0800, Until Discontinu ed, Routine apixaban 0 Yes 1358 5mg 5 mg, Univers (ELIQUIS) 8-14 Oral, BID, ity of tablet 5 mg 13:00: First dose [place] 00 on [facility] 01/02/21 at Branch 0800, Until Discontinu ed, Routine glipiZIDE 0 Yes 10mg 10 mg, Univer s (GLUCOTROL) 8-14 Oral, ity of tablet 10 12:30: BIDAC, [place] mg 00 First dose Medical on [facility] 01/02/21 at 0730, Until Discontinu ed, Routine levothyroxi 0 Yes 50ug 50 mcg, Uni vers ne 8-14 Oral, ity of (SYNTHROID) 11:00: QAM-0600, [place] tablet 50 00 First dose Medi uriel mcg on [facility] 01/02/21 at 0600, Until Discontinu ed, Routine morpHINE 2020-0 Yes 2mg 2 mg, Slow Uni vers injection 2 - IV Push, ity of mg 07:10: Q8RN, [place] 26 Starting Medical [facility] 01/02/21 at 0210, Until Discontinu ed, Routine, Pain (scale 7-10) proMETHazin No 25mg 25 mg, IV Univers e 01-02 Piggyback, ity of (PHENERGAN) 06:30: 05:42 ONCE, 1 [place] 25 mg in 00 :00 dose, Sat Medica l NaCl 0.9% 01/02/21 at [facility] ch (NS) 50 mL 0130, IV Routine piggyback spironolact Yes 25mg 25 mg, Univ ers one 01-02 Oral, BID, ity of (ALDACTONE) 04:15: First dose [place] tablet 25 00 (after Medical mg last Branch modificati on) on [facility] 01/01/21 at 2315, Until Discontinu ed, Routine furosemide No 40mg 40 mg, IV U nivers (LASIX) 01-02 Push, Q8H, ity o f injection 04:15: 11:45 First dose [place] 40 mg 00 :38 (after Medical last Branch modificati on) on [facility] 01/01/21 at 2315, Until Discontinu ed, PIER[place] isosorbide 2020- No 30mg 30 mg, Univ ers mononitrate 01-02 Oral, QPM, i ty of (IMDUR) 24 04:15: 08:34 First dose [place] hr tablet 00 :36 on Fri Medical 30 mg 01/01/21 at Branch 2315, Until Discontinu ed, Routine traMADoL Yes 50mg 50 mg, Univers (ULTRAM) 01-02 Oral, ity of tablet 50 04:05: Q8HPRN, [place] mg 52 Starting Medical Fri [place] 01/01/21 at 2305, Until Discontinu ed, Routine, Pain (scale 4-6) atorvastati No 40mg 40 mg, Uni vers n (LIPITOR) 01-02 Oral, QHS, i ty of tablet 40 02:00: 23:16 First dose [place] mg 00 :[address] [facility] Medical 01/01/21 at Branch 2100, Until Discontinu ed, Routine morpHINE No 2mg 2 mg, Slow Un char[place] injection 2 01-02 IV Push, ity of mg 01:47: 04:06 Q4HPRN, [place] 39 :01 Starting Medical Fri Branch 01/01/21 at 2046, Until Mon01/01/21 at 2305, Routine, Pain (scale 7-10), Chest pain docusate 0 Yes 100mg 100 mg, Unive rs (COLACE) 8-14 Oral, BID, ity o f capsule 100 01:45: First dose [place] mg 00 on Mon Medical 01/01/21 at Branch 2044, Until Discontinu ed, Routine Sliding 2020-0 Yes Subcutaneo Univ ers Scale 8-14 us, TID ity of Insulin - 01:45: MEALS, [place] Lispro 00 First dose Medical (HumaLOG) + on Mon Branch Fsbg 01/01/21 at Testing 2044, Until Discontinu ed, Routine venlafaxine Yes 75mg 75 mg, Univ ers (EFFEXOR) 8-14 Oral, BID, ity of tablet 75 01:45: First dose [place] mg 00 on Mon Medical 01/01/21 at Branch 2044, Until Discontinu ed, Routine aspirin Yes 81mg 81 mg, Univers chewable 14 Oral, QAM ity of tablet 81 01:45: WITH [place] mg 00 BREAKFAST, Medical First dose Branch on Mon01/01/21 at 2044, Until Discontinu ed, Routine metoprolol 2020- No 25mg 25 mg, Univ ers succinate 8 08-16 Oral, BID, ity of XL (TOPROL 01:45: 11:45 First dose [place] XL) tablet 00 :38 on Mon Medical 25 mg 01/01/21 at Branch 2044, Until Discontinu ed, Routine ondansetron Yes 4mg 4 mg, Slow Univers (ZOFRAN 8-14 IV Push, ity of (PF)) 01:36: Q6HPRN, [place] injection 4 51 Starting Medi uriel mg Fri Branch 01/01/21 at 2035, Until Discontinu ed, Routine, Nausea and Vomiting (N/V) glucagon Yes 1mg 1 mg, Univers (GLUCAGEN 8-14 Intramuscu ity of DIAGNOSTIC 01:31: [place], PRN, [place] KIT) 38 Starting Medical injection 1 Fri Branch mg 01/01/21 at 2030, Until Discontinu ed, PIERRE, Blood Glucose < or = 70 mg/dL and patient is unable to swallow or has mental changes. dextrose 50 Yes 25mL 25 mL, Univ ers % in water 01-02 Slow IV ity of (D50W) 01:31: Push, PRN, [place] injection 38 Starting Medica l 25 mL Fri Branch 01/01/21 at 2030, Until Discontinu ed, PIERRE, Blood Glucose < or = 70 mg/dL and patient is unable to swallow or has mental status changes. cyclobenzap Yes 10mg 10 mg, Univ ers rine 01-02 Oral, ity of (FLEXERIL) 01:28: BIDPRN, [place] tablet 10 05 Starting Medica l mg Mon [place] 01/01/21 at 2027, Until Discontinu ed, Routine, Muscle Spasms nitroglycer Yes .4mg 0.4 mg, Uni vers in 01-02 Sublingual ity of (NITROSTAT) 01:18: , Q5MIN Juan J as sublingual 25 PRN, Medical tablet 0.4 Starting Branc h mg Mon01/01/21 at 2018, Until Discontinu ed, Routine, Chest pain spironolact 2020- No 25mg 25 mg, Uni vers one 01-01 Oral, ity of (ALDACTONE) 23:00: 04:04 DAILY, Juan J as tablet 25 00 :56 First dose Medi uriel mg on Mon Branch 01/01/21 at 1800, Until Discontinu ed, Routine furosemide 2020- No 40mg 40 mg, IV U nivers (LASIX) 01-01 Push, ity of injection 22:15: 21:11 ONCE, 1 [place] 40 mg 00 :00 dose, Fri Medical 01/01/21 at Branch 1715, PIER[place] iopamidol 2020- No [id number] 100mL 100 mL, Univers (ISOVUE 01-01 Intravenou ity o f 370-500 mL) 22:00: 20:48 s, ONCE, 1 [place] injection 00 :00 dose, Fri Medic al 100 mL 01/01/21 at Branch 1700, Routine FENTanyl PF 2020- No 75ug 75 mcg, [place] (SUBLIMAZE 01-01 Slow IV ity o f (PF)) 21:30: 20:29 Push, [place] injection 00 :00 ONCE, 1 Medical 75 mcg dose, Fri Branch 01/01/21 at 1630, Routine metoprolol 2020- No [id number] 25mg Take 1 Univers succinate -17 01- tablet by ity of XL 25 mg 24 00:00: 04:59 mouth [place] hr tablet 00 :00 daily for Medic al 30 days. Branch metoprolol 2020- No [id number] 25mg Take 1 [facility] succinate -17 01- tablet by ity of XL 25 mg 24 00:00: 04:59 mouth [place] hr tablet 00 :00 daily for Medic al 30 days. Branch metoprolol 2020- No [id number] 25mg Take 1 [facility] succinate 12-17- tablet by ity of XL 25 mg 24 00:00: 04:59 mouth [place] hr tablet 00 :00 daily for Medic al 30 days. Branch metoprolol 2020- No [id number] 25mg Take 1 [facility] succinate 12-17- tablet by ity of XL 25 mg 24 00:00: 04:59 mouth [place] hr tablet 00 :00 daily for Medic al 30 days. Branch metoprolol 2020- No [id number] 25mg Take 1 [facility] succinate 12-17- tablet by ity of XL 25 mg 24 00:00: 04:59 mouth [place] hr tablet 00 :00 daily for Medic al 30 days. Branch fenofibrate Yes 200mg Take 200 U nivers micronized 7-28 mg by ity of 200 mg 22:47: mouth [place] capsule 07 daily with Medica l breakfast. Branch spironolact Yes 25mg Take 25 mg Univers one 25 mg 7-28 by mouth ity of tablet 22:47: daily. [place] 07 Medical Branch venlafaxine Yes 75mg Take 75 mg Univers 75 mg 7-28 by mouth 2 ity of tablet 22:47: (two) [place] 07 times Medical daily. Branch atorvastati Yes 40mg Take 40 mg Univers n 40 mg 7-28 by mouth ity of tablet 22:47: at bedtime. Medical Branch gabapentin Yes 800mg Take 800 [place] 800 mg 7-28 mg by ity of tablet 22:47: mouth 3 (three) Medical times Branch daily. omeprazole Yes 20mg Take 20 mg U nivers 20 mg 7-28 by mouth ity of capsule 22:47: daily. Medical Branch lisinopriL Yes 2.5mg Take 2.5 [place] 2.5 mg 7-28 mg by ity of tablet 22:47: mouth daily. Medical Branch levothyroxi Yes 50ug Take 50 Uni vers ne 50 mcg 7-28 mcg by ity of tablet 22:47: mouth every Medical morning. Branch ASPIRIN Yes Take by Univer s ORAL 7-28 mouth ity of 22:47: daily. Medical Branch glipiZIDE Yes 10mg Take 10 mg [place] 10 mg 7-28 by mouth ity of tablet 22:47: daily. Medical Branch metFORMIN Yes 500mg Take 500 Uni vers 500 mg 7-28 mg by ity of tablet 22:47: mouth daily. Medical Branch tamsulosin Yes Take by Uni vers 0.4 mg 24 7-28 mouth ity of hr capsule 22:47: daily. Medical Branch fenofibrate Yes 200mg Take 200 U nivers micronized 7-28 mg by ity of 200 mg 22:47: mouth [facility] 07 daily with Medica l breakfast. Branch spironolact Yes 25mg Take 25 mg Univers one 25 mg 7-28 by mouth ity of tablet 22:47: daily. Medical Branch venlafaxine Yes 75mg Take 75 mg Univers 75 mg 7-28 by mouth 2 ity of tablet 22:47: (two) times Medical daily. Branch atorvastati Yes 40mg Take 40 mg Univers n 40 mg 7-28 by mouth ity of tablet 22:47: at bedtime. Medical Branch gabapentin Yes 800mg Take 800 [place] 800 mg 7-28 mg by ity of tablet 22:47: mouth 3 (three) Medical times Branch daily. omeprazole Yes 20mg Take 20 mg U nivers 20 mg 7-28 by mouth ity of capsule 22:47: daily. Medical Branch lisinopriL 0 Yes 2.5mg Take 2.5 [place] 2.5 mg 7-28 mg by ity of tablet 22:47: mouth daily. Medical Branch levothyroxi 0 Yes 50ug Take 50 Uni vers ne 50 mcg 7-28 mcg by ity of tablet 22:47: mouth every Medical morning. Branch ASPIRIN Yes Take by Univer s ORAL 7-28 mouth ity of 22:47: daily. Medical Branch glipiZIDE Yes 10mg Take 10 mg [place] 10 mg 7-28 by mouth ity of tablet 22:47: daily. [place] [address] Medical Branch metFORMIN Yes 500mg Take 500 Uni vers 500 mg 7-28 mg by ity of tablet 22:47: mouth daily. Medical Branch tamsulosin Yes Take by Uni vers 0.4 mg 24 7-28 mouth ity of hr capsule 22:47: daily. Medical Branch fenofibrate Yes 200mg Take 200 U nivers micronized 7-28 mg by ity of 200 mg 22:47: mouth [place] [facility] 07 daily with Medica l breakfast. Branch spironolact Yes 25mg Take 25 mg Univers one 25 mg 7-28 by mouth ity of tablet 22:47: daily. [place] [address] Medical Branch venlafaxine Yes 75mg Take 75 mg Univers 75 mg 7-28 by mouth 2 ity of tablet 22:47: (two) times Medical daily. Branch atorvastati Yes 40mg Take 40 mg Univers n 40 mg 7-28 by mouth ity of tablet 22:47: at bedtime. Medical Branch gabapentin 0 Yes 800mg Take 800 [place] 800 mg 7-28 mg by ity of tablet 22:47: mouth 3 (three) Medical times Branch daily. omeprazole Yes 20mg Take 20 mg U nivers 20 mg 7-28 by mouth ity of capsule 22:47: daily. [place] [address] Medical Branch lisinopriL Yes 2.5mg Take 2.5 [place] 2.5 mg - mg by ity of tablet 22:47: mouth daily. Medical Branch levothyroxi Yes 50ug Take 50 Uni vers ne 50 mcg 7- mcg by ity of tablet 22:47: mouth every Medical morning. Branch ASPIRIN Yes Take by Univer s ORAL 12-16 mouth ity of 22:47: daily. [place] [address] Medical Branch glipiZIDE Yes 10mg Take 10 mg [place] 10 mg - by mouth ity of tablet 22:47: daily. [place] [address] Medical [place] metFORMIN Yes 500mg Take 500 Uni vers 500 mg - mg by ity of tablet 22:47: mouth daily. Medical Branch tamsulosin Yes Take by Uni vers 0.4 mg 24 12-16 mouth ity of hr capsule 22:47: daily. [place] [address] Medical Branch metoprolol No 12.5mg Take 12.5 Univers succinate 12-16- mg by ity of 25 mg CSpX 21:24: 00:00 mouth. [place] 37 :00 Half tab. Medical Branch fenofibrate Yes 67mg 67 mg, Univ ers micronized 12-16 Oral, ity of (LOFIBRA) 14:00: DAILY, [place] capsule 67 00 First dose Med ical mg on Mon [place] 12/16/20 at 0900, Until Discontinu ed, Routine tamsulosin Yes .4mg 0.4 mg, Univ ers (FLOMAX) 12-16 Oral, ity of capsule 0.4 14:00: DAILY, [place] mg 00 First dose Medical on Mon [place] 12/16/20 at 0900, Until Discontinu ed, Routine spironolact Yes 25mg 25 mg, Univ ers one 12-16 Oral, ity of (ALDACTONE) 14:00: DAILY, [place] tablet 25 00 First dose Medi uriel mg on Mon [place] 12/16/20 at 0900, Until Discontinu ed, Routine omeprazole Yes 20mg 20 mg, Unive rs (PRILOSEC) 12-16 Oral, ity of capsule 20 14:00: DAILY, [place] mg 00 First dose Medical on Mon12/16/20 at 0900, Until Discontinu ed, Routine metoprolol Yes 25mg 25 mg, Unive rs succinate 12-16 Oral, ity of XL (TOPROL 14:00: DAILY, [place] XL) tablet 00 First dose Med ical 25 mg on Mon12/16/20 at 0900, Until Discontinu ed lisinopriL Yes 2.5mg 2.5 mg, Uni vers (PRINIVIL,Z 12-16 Oral, ity of ESTRIL) 14:00: DAILY, [place] tablet 2.5 00 First dose Med ical mg on Mon12/16/20 at 0900, Until Discontinu ed, Routine aspirin Yes 81mg 81 mg, Univers chewable 12-16 Oral, ity of tablet 81 14:00: DAILY, [place] mg 00 First dose Medical on Mon12/16/20 at 0900, Until Discontinu ed, Routine levothyroxi Yes 50ug 50 mcg, Uni vers ne 12-16 Oral, ity of (SYNTHROID) 11:00: QAM-0600, [place] tablet 50 00 First dose Medi uriel mcg on Mon12/16/20 at 0600, Until Discontinu ed, Routine insulin NPH Yes 15U 15 Units, U nivers (HUMULIN N) 12-16 Subcutaneo it y of injection 02:00: , [place] 15 Units 00 QAM+HS, Medical First dose Branch on Mon12/15/20 at 2100, Until Discontinu ed, Routine atorvastati Yes 40mg 40 mg, Univ ers n (LIPITOR) 12-16 Oral, QHS, it y of tablet 40 02:00: First dose [place] mg 00 on [facility] 12/15/20 at Branch 2100, Until Discontinu ed, Routine venlafaxine Yes 75mg 75 mg, Univ ers (EFFEXOR) 12-16 Oral, BID, ity of tablet 75 01:00: First dose [place] mg 00 on [facility] 12/15/20 at Branch 2000, Until Discontinu ed, Routine apixaban Yes 1358 5mg 5 mg, Univers (ELIQUIS) 12-16 Oral, BID, ity of tablet 5 mg 01:00: First dose [place] 00 on [facility] 12/15/20 at Branch 2000, Until Discontinu ed, Routine albuterol Yes 2{puff} 2 Puff, [place] (VENTOLIN) 12-16 Inhalation ity of inhaler 2 01:00: , BID, [place] Puff 00 First dose Medical on [facility] 12/15/20 at 2000, Until Discontinu ed, Routine traMADoL 50 0 2020- No [id number] 50mg Take 1 Uni vers mg tablet 12-16-05 tablet by ity of 00:00: 04:59 mouth [place] 00 :00 every 6 Medical (six) Branch hours as needed for Pain (scale 7-10) for up to 7 days. Indication s: acute pain traMADoL 50 0 2020- No [id number] 50mg Take 1 Uni vers mg tablet 12-1605 tablet by ity of 00:00: 04:59 mouth [place] 00 :00 every 6 Medical (six) Branch hours as needed for Pain (scale 7-10) for up to 7 days. Indication s: acute pain furosemide Yes 40mg 40 mg, Unive rs (LASIX) 12-15 Oral, ity of tablet 40 22:00: QAM+PM, [place] mg 00 First dose Medical on [facility] 12/15/20 at 1700, Until Discontinu ed, Routine gabapentin 0 Yes 800mg 800 mg, Uni vers (NEURONTIN) 12-15 Oral, TID, it y of tablet 800 19:00: First dose [place] mg 00 on [facility] 12/15/20 at Branch 1400, Until Discontinu ed, Routine Sliding 0 Yes Subcutaneo Univ ers Scale 12-15 us, TID ity of Insulin - 17:00: MEALS+HS, Juan J as Lispro 00 First dose Medical (HumaLOG) + on [facility] Fsbg 12/15/20 at Testing 1200, Until Discontinu ed, Routine glucagon Yes 1mg 1 mg, Univers (GLUCAGEN 12-15 Intramuscu ity of DIAGNOSTIC 16:45: lar, PRN, [place] KIT) 26 Starting Medical injection 1 [facility] mg 12/15/20 at 1145, Until Discontinu ed, PIERRE, Blood Glucose < or = 70 mg/dL and patient is unable to swallow or has mental changes. dextrose 50 Yes 25mL 25 mL, Univ ers % in water 12-15 Slow IV ity of (D50W) 16:45: Push, PRN, [place] injection 26 Starting Medica l 25 mL [facility] Branch 12/15/20 at 1145, Until Discontinu ed, PIERRE, Blood Glucose < or = 70 mg/dL and patient is unable to swallow or has mental status changes. sulfur 2020- No [id number] 5mL 5 mL, Unive rs hexafluorid 12-15 Intravenou i ty of e microsphr 16:00: 16:00 s, ONCE, 1 [place] (LUMASON) 00 :00 dose, Tue Medic al injection 5 12/15/20 at Br anch mL 1100, Routine
membership advisor approving Restricted medication : NINFA CASTILLO metoclopram 2020- No 10mg 10 mg, Uni vers dora HCl 12-15 Slow IV ity of (REGLAN) 14:45: 13:31 Push, [place] injection 00 :00 ONCE, 1 Medical 10 mg dose, [facility] Branch 12/15/20 at 0945, PIERRE ondansetron Yes 4mg 4 mg, Slow Univers (ZOFRAN 12-15 IV Push, ity of (PF)) 14:19: Q6HPRN, [place] injection 4 47 Starting Medi uriel mg [facility] 12/15/20 at 0919, Until Discontinu ed, Routine, Nausea and Vomiting (N/V) morpHINE 2020- No 2mg 2 mg, Slow [place] injection 2 12-15 IV Push, ity of mg 14:19: 14:18 Q4HPRN, [place] 37 :37 Starting Medical [facility] Branch 12/15/20 at 0919, Until 12/16/20 at 0918, Routine, Pain (scale 7-10) acetaminoph 2020- No 1{tbl} 1 tablet, Univers en-codeine 12-15 Oral, ity of (TYLENOL 14:19: 14:18 Q6HPRN, [place] #3) 300-30 34 :34 Starting Medic al mg tablet 1 [facility] tablet 12/15/20 at 0919, Until Annie 12/17/20 at 0918, Routine, Pain (scale 4-6) acetaminoph 2020- Yes 650mg 650 mg, [place] en 12-15 Oral, ity of (TYLENOL) 14:19: Q6HPRN, [place] tablet 650 31 Starting Medic al mg [facility] 12/15/20 at 0919, Until Discontinu ed, Routine, Pain (scale 1-3) ondansetron 2020-0 202- No 4mg 4 mg, Slow Univers (ZOFRAN 12-15 IV Push, ity of (PF)) 12:00: 11:00 ONCE, 1 [place] injection 4 00 :00 dose, Tue Med ical mg 12/15/20 at Branch 0700, PIERRE FENTanyl PF 2020- No 75ug 75 mcg, [place] (SUBLIMAZE 12-15 Slow IV ity o f (PF)) 12:00: 11:00 Push, [place] injection 00 :00 ONCE, 1 Medical 75 mcg dose, [facility] 12/15/20 at 0700, STAT ondansetron 2020-2020- No 4mg 4 mg, Slow Univers (ZOFRAN 12-15 IV Push, ity of (PF)) 07:36: 07:37 ONCE, 1 [place] injection 4 00 :00 dose, Tue Med ical mg 12/15/20 at Branch 0245, PIERRE morpHINE 2020-0 2020- No 4mg 4 mg, Slow [place] injection 4 12-15 IV Push, ity of mg 07:36: 07:39 ONCE, 1 [place] 00 :00 dose, Tu Medical 12/15/20 at Branch 0245, STAT morpHINE 2020-0 202- No 4mg 4 mg, Slow [place] injection 4 12-15 IV Push, ity of mg 03:15: 02:17 ONCE, 1 [place] 00 :00 dose, [facility] 12/14/20 at Branch 2215, STAT aspirin 2020-0 202- No 325mg 325 mg, Unive rs tablet 325 12-15 Oral, ity of mg 01:00: 23:49 ONCE, 1 [place] 00 :00 dose, [facility] Medical 12/14/20 at [place] 2000, STAT ondansetron 2020- No 4mg 4 mg, Slow Univers (ZOFRAN 12-15 IV Push, ity of (PF)) 00:45: 23:48 ONCE, 1 [place] injection 4 00 :00 dose, Mon Med ical mg 12/14/20 at [place] 1944, PIERRE morpHINE 2020- No 4mg 4 mg, Slow [place] injection 4 12-15 IV Push, ity of mg 00:45: 23:48 ONCE, 1 [place] 00 :00 dose, [facility] 12/14/20 at [place] 1944, STAT No known No Univers medications 12-14 ity of 18:38: [address] barium 2020- No [id number] 680g 680 g, Uni vers sulfate 10-28 Oral, ity of (LIQUID E-Z 17:15: 14:15 ONCE, 1 [place] VELA) 60 % 00 :00 dose, Wed Med ical (w/v) oral 10/28/20 at [facility] suspension 1215, 680 g Routine sod 2020- No [id number] 1{packe 1 Packet, [place] [facility] bicarb-citr 10-28 t} Oral, ity of ic 17:15: 14:15 ONCE, 1 [place] ac-simeth 00 :00 dose, Wed Medic al (E-Z-GAS 10/28/20 at [place] II) 1215, 2.21-1.53 Routine gram/4 gram packet 1 Packet HUMULIN N Yes INJECT 14 Uni vers NPH U-100 5-22 UNITS ity of INSULIN 100 00:00: SUBCUTANEO [place] unit/mL 00 USLY AT Medical injection BEDTIME [place] HUMULIN N Yes INJECT 14 Uni vers NPH U-100 5-22 UNITS ity of INSULIN 100 00:00: SUBCUTANEO [place] unit/mL 00 USLY AT Medical injection BEDTIME [place] HUMULIN N Yes INJECT 14 Uni vers NPH U-100 5-22 UNITS ity of INSULIN 100 00:00: SUBCUTANEO [place] unit/mL 00 USLY AT Medical injection BEDTIME Branch HUMULIN N Yes INJECT 14 Uni vers NPH U-100 5-22 UNITS ity of INSULIN 100 00:00: SUBCUTANEO [place] unit/mL 00 USLY AT Medical injection BEDTIME Branch HUMULIN N Yes INJECT 14 Uni vers NPH U-100 5-22 UNITS ity of INSULIN 100 00:00: SUBCUTANEO [place] unit/mL 00 USLY AT Medical injection BEDTIME Branch ketorolac 2020- No 30mg 30 mg, Unive rs (TORADOL) 09-29 Slow IV ity of injection 02:15: 01:15 Push, [place] 30 mg 00 :00 ONCE, 1 Medical dose, [facility] 09/28/20 at 211, Routine
membership advisor approving Restricted medication : ÓSCAR HERMOSILLO dicyclomine 2020- No 20mg 20 mg, Uni vers (BENTYL) 09-29 Intramuscu ity of injection 02:15: 01:17 lar, ONCE, [place] 20 mg 00 :00 1 dose, [facility] 09/28/20 at 211, Routine NaCl 0.9% 2020- No 500mL at 999 [facility] ers (NS) bolus 09-29 mL/hr, 500 it y of infusion 00:30: 01:40 mL, IV [place] 500 mL 00 :00 Piggyback, Medical ONCE, 1 Branch dose, [facility] 09/28/20 at 1930, STAT ondansetron 2020- No 4mg 4 mg, Slow Univers (ZOFRAN 09-29 IV Push, ity of (PF)) 00:30: 23:33 ONCE, 1 [place] injection 4 00 :00 dose, Mon Med ical mg 09/28/20 at Branch 1930, PIERRE morpHINE 2020- No 4mg 4 mg, Slow [place] injection 4 09-29 IV Push, ity of mg 00:30: 23:35 ONCE, 1 [place] 00 :00 dose, [facility] 09/28/20 at Branch 1930, STAT maalox:diph 2020- No 15mL 15 mL, Uni vers enhydrAMINE 09-29 05-10 Oral, ity of :lidocaine 00:30: 23:34 ONCE, 1 [place] J as 2 % viscous 00 :00 dose, Mon Med ical 1:1:1 09/28/20 at [place] (FIRST-MOUT 1930, HWASH BLM) Routine oral suspension 15 mL pantoprazol 2020- No 40mg 40 mg, IV Univers e 09-29 05-10 Piggyback, ity of (PROTONIX) 00:30: 23:54 ONCE, 1 [place] J as 40 mg in 00 :00 dose, Mon Medica l NaCl 0.9% 09/28/20 at [facility] (NS) 100 mL 1929, 100 MINI-BAG mL NaCl 0.9% 2020- No 1000mL at 999 Uni vers (NS) bolus 09-28 05-11 mL/hr, ity of infusion 23:30: 00:40 1,000 mL, Juan J as 1,000 mL 00 :00 IV Medical Infusion, [place] ONCE, 1 dose, [facility] 09/28/20 at 1830, PIERRE ondansetron 2020-0 Yes [id number] 4mg Take 1 Univers 4 mg 5-10 tablet by ity of disintegrat 00:00: mouth [place] ing tablet 00 every 8 Medica l (eight) Branch hours as needed for Nausea and Vomiting (N/V). ondansetron 2020-0 Yes [id number] 4mg Take 1 Univers 4 mg 5-10 tablet by ity of disintegrat 00:00: mouth [place] ing tablet 00 every 8 Medica l (eight) Branch hours as needed for Nausea and Vomiting (N/V). ondansetron 2020-0 Yes [id number] 4mg Take 1 Univers 4 mg 5-10 tablet by ity of disintegrat 00:00: mouth [place] ing tablet 00 every 8 Medica l (eight) Branch hours as needed for Nausea and Vomiting (N/V). ondansetron 2020-0 Yes [id number] 4mg Take 1 Univers 4 mg 5-10 tablet by ity of disintegrat 00:00: mouth [place] ing tablet 00 every 8 Medica l (eight) Branch hours as needed for Nausea and Vomiting (N/V). ondansetron 2020-0 Yes [id number] 4mg Take 1 Univers 4 mg 5-10 tablet by ity of disintegrat 00:00: mouth [place] ing tablet 00 every 8 Medica l (eight) Branch hours as needed for Nausea and Vomiting (N/V). ondansetron 2020-0 Yes [id number] 4mg Take 1 Univers 4 mg 5-10 tablet by ity of disintegrat 00:00: mouth [place] ing tablet 00 every 8 Medica l (eight) Branch hours as needed for Nausea and Vomiting (N/V). ondansetron 2020-0 Yes [id number] 4mg Take 1 Univers 4 mg 5-10 tablet by ity of disintegrat 00:00: mouth [place] ing tablet 00 every 8 Medica l (eight) Branch hours as needed for Nausea and Vomiting (N/V). ondansetron 2020-0 Yes [id number] 4mg Take 1 Univers 4 mg 5-10 tablet by ity of disintegrat 00:00: mouth [place] ing tablet 00 every 8 Medica l (eight) Branch hours as needed for Nausea and Vomiting (N/V). ondansetron 2020-0 Yes [id number] 4mg Take 1 Univers 4 mg 5-10 tablet by ity of disintegrat 00:00: mouth [place] ing tablet 00 every 8 Medica l (eight) Branch hours as needed for Nausea and Vomiting (N/V). ondansetron 2020-0 Yes [id number] 4mg Take 1 Univers 4 mg 5-10 tablet by ity of disintegrat 00:00: mouth [place] ing tablet 00 every 8 Medica l (eight) Branch hours as needed for Nausea and Vomiting (N/V). ondansetron 2020-0 Yes [id number] 4mg Take 1 Univers 4 mg 5-10 tablet by ity of disintegrat 00:00: mouth [place] ing tablet 00 every 8 Medica l (eight) Branch hours as needed for Nausea and Vomiting (N/V). ondansetron 2020-0 Yes [id number] 4mg Take 1 Univers 4 mg 5-10 tablet by ity of disintegrat 00:00: mouth [place] ing tablet 00 every 8 Medica l (eight) Branch hours as needed for Nausea and Vomiting (N/V). ondansetron 2020-0 Yes [id number] 4mg Take 1 Univers 4 mg 5-10 tablet by ity of disintegrat 00:00: mouth [place] ing tablet 00 every 8 Medica l (eight) Branch hours as needed for Nausea and Vomiting (N/V). ondansetron Yes [id number] 4mg Take 1 Univers 4 mg 5-10 tablet by ity of disintegrat 00:00: mouth [place] ing tablet 00 every 8 Medica l (eight) Branch hours as needed for Nausea and Vomiting (N/V). pantoprazol No [id number] 40mg Take 1 Univers e 40 mg EC 5-10 06-10 tablet by ity of tablet 00:00: 04:59 mouth [place] 00 :00 daily for Medical 30 days. Branch pantoprazol 2020- No [id number] 40mg Take 1 Univers e 40 mg EC 5-10 06-10 tablet by ity of tablet 00:00: 04:59 mouth [place] 00 :00 daily for Medical 30 days. Branch pantoprazol 2020- No [id number] 40mg Take 1 Univers e 40 mg EC 5-10 06-10 tablet by ity of tablet 00:00: 04:59 mouth [place] 00 :00 daily for Medical 30 days. Branch pantoprazol 2020- No [id number] 40mg Take 1 Univers e 40 mg EC 5-10 06-10 tablet by ity of tablet 00:00: 04:59 mouth [place] 00 :00 daily for Medical 30 days. Branch pantoprazol 2020- No [id number] 40mg Take 1 Univers e 40 mg EC 5-10 06-10 tablet by ity of tablet 00:00: 04:59 mouth [place] 00 :00 daily for Medical 30 days. Branch pantoprazol 2020- No [id number] 40mg Take 1 Univers e 40 mg EC 5-10 06-10 tablet by ity of tablet 00:00: 04:59 mouth [place] 00 :00 daily for Medical 30 days. Branch pantoprazol 2020- No [id number] 40mg Take 1 Univers e 40 mg EC 5-10 06-10 tablet by ity of tablet 00:00: 04:59 mouth [place] 00 :00 daily for Medical 30 days. Branch pantoprazol 2020- No [id number] 40mg Take 1 Univers e 40 mg EC 5-10 06-10 tablet by ity of tablet 00:00: 04:59 mouth [place] 00 :00 daily for Medical 30 days. [place] dicyclomine 2020- No [id number] 20mg Take 1 Univers 20 mg 5-10 05-18 tablet by ity of tablet 00:00: 04:59 mouth 4 [place] 00 :00 (four) Medical times [place] daily for 7 days. aspirin 81 2020- No [id number] 81mg Take 1 Univers mg chewable 09-27- tablet by it y of tablet 00:00: 04:59 mouth [place] 00 :00 daily for Medical 30 days. [place] metoprolol 2020- No [id number] 12.5mg Take 0.5 Univers succinate -01 25- tablets by ity of XL 25 mg 24 00:00: 04:59 mouth [place] hr tablet 00 :00 daily for Medic al 30 days. [place] spironolact 2020- No [id number] 25mg Take 1 Univers one 25 mg 09-27- tablet by ity of tablet 00:00: 04:59 mouth [place] 00 :00 daily for Medical 30 days. [place] aspirin 81 2020- No [id number] 81mg Take 1 Univers mg chewable 09-27- tablet by it y of tablet 00:00: 04:59 mouth [place] 00 :00 daily for Medical 30 days. [place] metoprolol 2020- No [id number] 12.5mg Take 0.5 Univers succinate 09-27- tablets by ity of XL 25 mg 24 00:00: 04:59 mouth [place] hr tablet 00 :00 daily for Medic al 30 days. [place] spironolact 2020- No [id number] 25mg Take 1 Univers one 25 mg 09-27- tablet by ity of tablet 00:00: 04:59 mouth [place] 00 :00 daily for Medical 30 days. Branch aspirin 81 2020- No [id number] 81mg Take 1 Univers mg chewable 09-27- tablet by it y of tablet 00:00: 04:59 mouth [place] 00 :00 daily for Medical 30 days. [place] metoprolol 2020- No [id number] 12.5mg Take 0.5 Univers succinate -01 25- tablets by ity of XL 25 mg 24 00:00: 04:59 mouth [place] hr tablet 00 :00 daily for Medic al 30 days. Branch spironolact 2020- No [id number] 25mg Take 1 Univers one 25 mg 09-27- tablet by ity of tablet 00:00: 04:59 mouth [place] 00 :00 daily for Medical 30 days. Branch aspirin 81 2020- No [id number] 81mg Take 1 Univers mg chewable 09-27- tablet by it y of tablet 00:00: 04:59 mouth [place] 00 :00 daily for Medical 30 days. Branch metoprolol 2020- No [id number] 12.5mg Take 0.5 Univers succinate 09-27- tablets by ity of XL 25 mg 24 00:00: 04:59 mouth [place] hr tablet 00 :00 daily for Medic al 30 days. Branch spironolact 2020- No [id number] 25mg Take 1 Univers one 25 mg 09-27- tablet by ity of tablet 00:00: 04:59 mouth [place] 00 :00 daily for Medical 30 days. Branch aspirin 81 2020- No [id number] 81mg Take 1 Univers mg chewable 09-27- tablet by it y of tablet 00:00: 04:59 mouth [place] 00 :00 daily for Medical 30 days. Branch metoprolol 2020- No [id number] 12.5mg Take 0.5 Univers succinate 09-27- tablets by ity of XL 25 mg 24 00:00: 04:59 mouth [place] hr tablet 00 :00 daily for Medic al 30 days. Branch spironolact 2020- No [id number] 25mg Take 1 Univers one 25 mg 09-27- tablet by ity of tablet 00:00: 04:59 mouth [place] 00 :00 daily for Medical 30 days. Branch aspirin 81 2020- No [id number] 81mg Take 1 Univers mg chewable 09-27- tablet by it y of tablet 00:00: 04:59 mouth [place] 00 :00 daily for Medical 30 days. Branch metoprolol 2020- No [id number] 12.5mg Take 0.5 Univers succinate 09-27- tablets by ity of XL 25 mg 24 00:00: 04:59 mouth [place] hr tablet 00 :00 daily for Medic al 30 days. Branch spironolact 2020- No [id number] 25mg Take 1 Univers one 25 mg 09-27 tablet by ity of tablet 00:00: 04:59 mouth [place] 00 :00 daily for Medical 30 days. Branch aspirin 81 2020- No [id number] 81mg Take 1 Univers mg chewable 09-27- tablet by it y of tablet 00:00: 04:59 mouth [place] 00 :00 daily for Medical 30 days. Branch metoprolol 2020- No [id number] 12.5mg Take 0.5 Univers succinate 09-27- tablets by ity of XL 25 mg 24 00:00: 04:59 mouth [place] hr tablet 00 :00 daily for Medic al 30 days. Branch spironolact 2020- No [id number] 25mg Take 1 [facility] one 25 mg 09-27 tablet by [facility] of tablet 00:00: 04:59 mouth [place] 00 :00 daily for Medical 30 days. Branch aspirin 81 2020- No [id number] 81mg Take 1 [facility] mg chewable 09-27 tablet by it y of tablet 00:00: 04:59 mouth [place] 00 :00 daily for Medical 30 days. Branch metoprolol 2020- No [id number] 12.5mg Take 0.5 [facility] succinate 09-27- tablets by ity of XL 25 mg 24 00:00: 04:59 mouth [place] hr tablet 00 :00 daily for Medic al 30 days. Branch spironolact 2020- No [id number] 25mg Take 1 [facility] one 25 mg 09-27- tablet by ity of tablet 00:00: 04:59 mouth [place] 00 :00 daily for Medical 30 days. Branch aspirin 81 2020- No [id number] 81mg Take 1 [facility] mg chewable 09-27 tablet by it y of tablet 00:00: 04:59 mouth [place] 00 :00 daily for Medical 30 days. Branch metoprolol 2020- No [id number] 12.5mg Take 0.5 [facility] succinate 09-27- tablets by ity of XL 25 mg 24 00:00: 04:59 mouth [place] hr tablet 00 :00 daily for Medic al 30 days. Branch spironolact 2020- No [id number] 25mg Take 1 [facility] one 25 mg 09-27- tablet by ity of tablet 00:00: 04:59 mouth [place] 00 :00 daily for Medical 30 days. Branch fenofibrate Yes 200mg Take 200 [facility] micronized 5-08 mg by ity of 200 mg 23:30: mouth [place] capsule 57 daily with Medica l breakfast. Branch fenofibrate Yes 200mg Take 200 [facility] nivers micronized 5-08 mg by ity of 200 mg 23:30: mouth [place] capsule 57 daily with Medica l breakfast. Branch fenofibrate Yes 200mg Take 200 [facility] nivers micronized 5-08 mg by ity of 200 mg 23:30: mouth [place] capsule 57 daily with Medica l breakfast. Branch fenofibrate Yes 200mg Take 200 [facility] nivers micronized 5-08 mg by ity of 200 mg 23:30: mouth [place] capsule 57 daily with Medica l breakfast. Branch fenofibrate Yes 200mg Take 200 [facility] nivers micronized 5-08 mg by ity of 200 mg 23:30: mouth [place] capsule 57 daily with Medica l breakfast. Branch fenofibrate Yes 200mg Take 200 [facility] nivers micronized 5-08 mg by ity of 200 mg 23:30: mouth [place] capsule 57 daily with Medica l breakfast. Branch fenofibrate Yes 200mg Take 200 [facility] nivers micronized 5-08 mg by ity of 200 mg 23:30: mouth [place] capsule 57 daily with Medica l breakfast. Branch fenofibrate Yes 200mg Take 200 [facility] nivers micronized 5-08 mg by ity of 200 mg 23:30: mouth [place] capsule 57 daily with Medica l breakfast. Branch fenofibrate Yes 200mg Take 200 [facility] nivers micronized 5-08 mg by ity of 200 mg 23:30: mouth [place] capsule 57 daily with Medica l breakfast. Branch fenofibrate Yes 200mg Take 200 [facility] nivers micronized 5-08 mg by ity of 200 mg 23:30: mouth [place] capsule 57 daily with Medica l breakfast. Branch fenofibrate Yes 200mg Take 200 [facility] nivers micronized 5-08 mg by ity of 200 mg 23:30: mouth [place] capsule 57 daily with Medica l breakfast. Branch simvastatin 2020- No 40mg Take 40 mg [facility] 40 mg 5-08 05-08 by mouth ity of tablet 20:49: 00:00 at [place] 55 :00 bedtime. Medical Branch omeprazole 2020- No 20mg Take 20 mg [facility] 20 mg 5- 05-08 by mouth ity of capsule 20:49: 00:00 daily. [place] 55 :00 Medical Branch metformin 2020- No 500mg Take 500 [facility] [place] ER 500 mg 5-08 05-08 mg by ity of 24 hr 20:49: 00:00 mouth [place] tablet 55 :00 daily with Medical breakfast. Branch gabapentin 2020- No 989 800mg Take 800 [facility] 800 mg 5-08 05-08 mg by ity of tablet 20:49: 00:00 mouth 3 [place] 55 :00 (three) Medical times Branch daily. Indication s: weakness, numbness or pain from nerve damage albuterol 2020- No 2{puff} Inhale 2 [facility] 90 5-08 05-08 Puffs 2 ity of mcg/actuati 20:49: 00:00 (two) [place] on inhaler 55 :00 times Medical daily. Branch lisinopriL 2020- No 2.5mg Take 2.5 [facility] n[facility] 2.5 mg 5-08 05-08 mg by ity of tablet 20:49: 00:00 mouth [place] 55 :00 daily. Medical Branch metoprolol 2020- No 25mg Take 25 mg [facility] succinate 5-08 05-08 by mouth ity o f XL 25 mg 24 20:49: 00:00 daily. [place] hr tablet 55 :00 Medical Branch atorvastati 2020- No 40mg Take 40 mg [facility] n 40 mg 5-08 05-08 by mouth ity of tablet 20:49: 00:00 at [place] 55 :00 bedtime. Medical Branch cyclobenzap 2020- No 10mg Take 10 mg [facility] rine 10 mg 5-08 05-08 by mouth 2 it y of tablet 20:49: 00:00 (two) [place] 55 :00 times Medical daily as Branch needed for Muscle Spasms. aspirin Yes 81mg 81 mg, [facility] chewable 5-08 Oral, ity of tablet 81 14:00: DAILY, [place] mg 00 First dose Medical on Sat Branch 09/26/20 at 0900, Until Discontinu ed, Routine furosemide Yes [id number] 40mg Take 1 [facility] 40 mg 5-08 tablet by ity of tablet 00:00: mouth [place] 00 every Medical morning Branch and evening. cyclobenzap 2020- Yes [id number] 10mg Take 1 [facility] rine 10 mg 5-08 tablet by ity of tablet 00:00: mouth 2 [place] 00 (two) Medical times Branch daily as needed for Muscle Spasms. albuterol Yes [id number] 2{puff} Inhale 2 [facility] 90 5-08 Puffs 2 ity of mcg/actuati 00:00: (two) [place] on inhaler 00 times Medical daily. Branch apixaban 5 Yes 1358 5mg Take 1 [facility] rs mg tablet 5-08 tablet by ity o f 00:00: mouth 2 [place] 00 (two) Medical times Branch daily. Indication s: atrial fibrillati on furosemide Yes [id number] 40mg Take 1 [facility] 40 mg 5-08 tablet by ity of tablet 00:00: mouth [place] 00 every Medical morning Branch and evening. cyclobenzap 2020-0 Yes [id number] 10mg Take 1 [facility] rine 10 mg 5-08 tablet by ity of tablet 00:00: mouth 2 [place] 00 (two) Medical times Branch daily as needed for Muscle Spasms. albuterol 2020-0 Yes [id number] 2{puff} Inhale 2 [facility] 90 5-08 Puffs 2 ity of mcg/actuati 00:00: (two) [place] on inhaler 00 times Medical daily. Branch apixaban 5 2020- Yes 1358 5mg Take 1 [facility] rs mg tablet 5-08 tablet by ity o f 00:00: mouth 2 [place] 00 (two) Medical times Branch daily. Indication s: atrial fibrillati on furosemide 0 Yes [id number] 40mg Take 1 [facility] 40 mg 5-08 tablet by ity of tablet 00:00: mouth [place] 00 every Medical morning Branch and evening. cyclobenzap 2020-0 Yes [id number] 10mg Take 1 [facility] rine 10 mg 5-08 tablet by ity of tablet 00:00: mouth (two) Medical times Branch daily as needed for Muscle Spasms. albuterol Yes [id number] 2{puff} Inhale 2 [facility] 90 5-08 Puffs 2 ity of mcg/actuati 00:00: (two) [place] on inhaler 00 times Medical daily. Branch apixaban 5 0 Yes 1358 5mg Take 1 [facility] rs mg tablet 5-08 tablet by ity o f 00:00: mouth (two) Medical times Branch daily. Indication s: atrial fibrillati on furosemide Yes [id number] 40mg Take 1 [facility] 40 mg 5-08 tablet by ity of tablet 00:00: mouth 00 every Medical morning Branch and evening. cyclobenzap 2020- Yes [id number] 10mg Take 1 [facility] rine 10 mg 5-08 tablet by ity of tablet 00:00: mouth (two) Medical times Branch daily as needed for Muscle Spasms. albuterol Yes [id number] 2{puff} Inhale 2 [facility] 90 5-08 Puffs 2 ity of mcg/actuati 00:00: (two) [place] on inhaler 00 times Medical daily. Branch apixaban 5 0 Yes 1358 5mg Take 1 [facility] rs mg tablet 5-08 tablet by ity o f 00:00: mouth (two) Medical times Branch daily. Indication s: atrial fibrillati on furosemide 2020-0 Yes [id number] 40mg Take 1 [facility] 40 mg 5-08 tablet by ity of tablet 00:00: mouth [place] 00 every Medical morning Branch and evening. cyclobenzap 2020-0 Yes [id number] 10mg Take 1 [facility] rine 10 mg 5-08 tablet by ity of tablet 00:00: mouth (two) Medical times Branch daily as needed for Muscle Spasms. albuterol 0 Yes [id number] 2{puff} Inhale 2 [facility] 90 5-08 Puffs 2 ity of mcg/actuati 00:00: (two) [place] on inhaler 00 times Medical daily. Branch apixaban 5 2020-0 Yes 1358 5mg Take 1 [facility] rs mg tablet 5-08 tablet by ity o f 00:00: mouth 2 [place] (two) Medical times Branch daily. Indication s: atrial fibrillati on furosemide 0 Yes [id number] 40mg Take 1 [facility] 40 mg 5-08 tablet by ity of tablet 00:00: mouth [place] 00 every Medical morning Branch and evening. cyclobenzap 2020-0 Yes [id number] 10mg Take 1 [facility] rine 10 mg 5-08 tablet by ity of tablet 00:00: mouth 2 (two) Medical times Branch daily as needed for Muscle Spasms. albuterol 2020- Yes [id number] 2{puff} Inhale 2 [facility] 90 5-08 Puffs 2 ity of mcg/actuati 00:00: (two) [place] on inhaler 00 times Medical daily. Branch apixaban 5 0 Yes 1358 5mg Take 1 [facility] rs mg tablet 5-08 tablet by ity o f 00:00: mouth 2 (two) Medical times Branch daily. Indication s: atrial fibrillati on furosemide 2020-0 Yes [id number] 40mg Take 1 [facility] 40 mg 5-08 tablet by ity of tablet 00:00: mouth [place] 00 every Medical morning Branch and evening. cyclobenzap 2020-0 Yes [id number] 10mg Take 1 [facility] rine 10 mg 5-08 tablet by ity of tablet 00:00: mouth 2 (two) Medical times Branch daily as needed for Muscle Spasms. albuterol 2020-0 Yes [id number] 2{puff} Inhale 2 [facility] 90 5-08 Puffs 2 ity of mcg/actuati 00:00: (two) [place] on inhaler 00 times Medical daily. Branch apixaban 5 2020-0 Yes 1358 5mg Take 1 [facility] rs mg tablet 5-08 tablet by ity o f 00:00: mouth 2 (two) Medical times Branch daily. Indication s: atrial fibrillati on furosemide 2020-0 Yes [id number] 40mg Take 1 [facility] 40 mg 5-08 tablet by ity of tablet 00:00: mouth [place] 00 every Medical morning Branch and evening. cyclobenzap 2020-0 Yes [id number] 10mg Take 1 [facility] rine 10 mg 5-08 tablet by ity of tablet 00:00: mouth 2 (two) Medical times Branch daily as needed for Muscle Spasms. albuterol 2020-0 Yes [id number] 2{puff} Inhale 2 [facility] 90 5-08 Puffs 2 ity of mcg/actuati 00:00: (two) [place] on inhaler 00 times Medical daily. Branch apixaban 5 2020-0 Yes 1358 5mg Take 1 [facility] rs mg tablet 5-08 tablet by ity o f 00:00: mouth 2 [place] (two) Medical times Branch daily. Indication s: atrial fibrillati on furosemide 2020-0 Yes [id number] 40mg Take 1 [facility] 40 mg 5-08 tablet by ity of tablet 00:00: mouth [place] 00 every Medical morning Branch and evening. cyclobenzap 2020-0 Yes [id number] 10mg Take 1 [facility] rine 10 mg 5-08 tablet by ity of tablet 00:00: mouth 2 [place] (two) Medical times Branch daily as needed for Muscle Spasms. albuterol 2020-0 Yes [id number] 2{puff} Inhale 2 [facility] 90 5-08 Puffs 2 ity of mcg/actuati 00:00: (two) [place] on inhaler 00 times Medical daily. Branch apixaban 5 2020-0 Yes 1358 5mg Take 1 [facility] rs mg tablet 5-08 tablet by ity o f 00:00: mouth 2 (two) Medical times Branch daily. Indication s: atrial fibrillati on furosemide 2020-0 Yes [id number] 40mg Take 1 [facility] 40 mg 5-08 tablet by ity of tablet 00:00: mouth [place] 00 every Medical morning Branch and evening. cyclobenzap 2020-0 Yes [id number] 10mg Take 1 [facility] rine 10 mg 5-08 tablet by ity of tablet 00:00: mouth 2 [place] 00 (two) Medical times Branch daily as needed for Muscle Spasms. albuterol 2020-0 Yes [id number] 2{puff} Inhale 2 [facility] 90 5-08 Puffs 2 ity of mcg/actuati 00:00: (two) [place] on inhaler 00 times Medical daily. Branch apixaban 5 2020-0 Yes 1358 5mg Take 1 [facility] rs mg tablet 5-08 tablet by ity o f 00:00: mouth 2 (two) Medical times Branch daily. Indication s: atrial fibrillati on furosemide 2020-0 Yes [id number] 40mg Take 1 [facility] 40 mg 5-08 tablet by ity of tablet 00:00: mouth [place] 00 every Medical morning Branch and evening. cyclobenzap 2020-0 Yes [id number] 10mg Take 1 [facility] rine 10 mg 5-08 tablet by ity of tablet 00:00: mouth 2 (two) Medical times Branch daily as needed for Muscle Spasms. albuterol 2020- Yes [id number] 2{puff} Inhale 2 [facility] 90 5-08 Puffs 2 ity of mcg/actuati 00:00: (two) [place] on inhaler 00 times Medical daily. Branch apixaban 5 0 Yes 1358 5mg Take 1 [facility] rs mg tablet 5-08 tablet by ity o f 00:00: mouth 2 (two) Medical times Branch daily. Indication s: atrial fibrillati on furosemide 2020-0 Yes [id number] 40mg Take 1 [facility] 40 mg 5-08 tablet by ity of tablet 00:00: mouth [place] 00 every Medical morning Branch and evening. cyclobenzap 2020-0 Yes [id number] 10mg Take 1 [facility] rine 10 mg 5-08 tablet by ity of tablet 00:00: mouth 2 [place] (two) Medical times Branch daily as needed for Muscle Spasms. albuterol 2020-0 Yes [id number] 2{puff} Inhale 2 [facility] 90 5-08 Puffs 2 ity of mcg/actuati 00:00: (two) [place] on inhaler 00 times Medical daily. Branch apixaban 5 2020-0 Yes 1358 5mg Take 1 [facility] rs mg tablet 5-08 tablet by ity o f 00:00: mouth 2 [place] (two) Medical times Branch daily. Indication s: atrial fibrillati on furosemide 2020-0 Yes [id number] 40mg Take 1 [facility] 40 mg 5-08 tablet by ity of tablet 00:00: mouth 00 every Medical morning Branch and evening. cyclobenzap 2020-0 Yes [id number] 10mg Take 1 [facility] rine 10 mg 5-08 tablet by ity of tablet 00:00: mouth (two) Medical times Branch daily as needed for Muscle Spasms. albuterol 2020-0 Yes [id number] 2{puff} Inhale 2 [facility] 90 5-08 Puffs 2 ity of mcg/actuati 00:00: (two) [place] on inhaler 00 times Medical daily. Branch apixaban 5 2020-0 Yes 1358 5mg Take 1 [facility] rs mg tablet 5-08 tablet by ity o f 00:00: mouth 2 (two) Medical times Branch daily. Indication s: atrial fibrillati on furosemide 2020-0 Yes [id number] 40mg Take 1 [facility] 40 mg 5-08 tablet by ity of tablet 00:00: mouth every Medical morning Branch and evening. cyclobenzap 2020-0 Yes [id number] 10mg Take 1 [facility] rine 10 mg 5-08 tablet by ity of tablet 00:00: mouth (two) Medical times Branch daily as needed for Muscle Spasms. albuterol 2020-0 Yes [id number] 2{puff} Inhale 2 [facility] 90 5-08 Puffs 2 ity of mcg/actuati 00:00: (two) [place] on inhaler 00 times Medical daily. Branch apixaban 5 2020-0 Yes 1358 5mg Take 1 [facility] rs mg tablet 5-08 tablet by ity o f 00:00: mouth (two) Medical times Branch daily. Indication s: atrial fibrillati on furosemide 2020-0 Yes [id number] 40mg Take 1 [facility] 40 mg 5-08 tablet by ity of tablet 00:00: mouth every Medical morning Branch and evening. cyclobenzap 2020-0 Yes [id number] 10mg Take 1 [facility] rine 10 mg 5-08 tablet by ity of tablet 00:00: mouth 2 (two) Medical times Branch daily as needed for Muscle Spasms. albuterol 2020-0 Yes [id number] 2{puff} Inhale 2 [facility] 90 5-08 Puffs 2 ity of mcg/actuati 00:00: (two) [place] on inhaler 00 times Medical daily. Branch apixaban 5 Yes 1358 5mg Take 1 [facility] rs mg tablet 5-08 tablet by ity o f 00:00: mouth 2 [place] 00 (two) Medical times Branch daily. Indication s: atrial fibrillati on furosemide Yes [id number] 40mg Take 1 [facility] 40 mg 5-08 tablet by ity of tablet 00:00: mouth [place] 00 every Medical morning Branch and evening. cyclobenzap Yes [id number] 10mg Take 1 [facility] rine 10 mg 5-08 tablet by ity of tablet 00:00: mouth 2 [place] 00 (two) Medical times Branch daily as needed for Muscle Spasms. albuterol Yes [id number] 2{puff} Inhale 2 [facility] 90 5-08 Puffs 2 ity of mcg/actuati 00:00: (two) [place] on inhaler 00 times Medical daily. Branch apixaban 5 Yes 1358 5mg Take 1 [facility] rs mg tablet 5-08 tablet by ity o f 00:00: mouth 2 [place] 00 (two) Medical times Branch daily. Indication s: atrial fibrillati on docusate 2020- No [id number] 100mg Take 1 [facility] 100 mg 5-08 06-08 capsule by ity of capsule 00:00: 04:59 mouth 2 [place] 00 :00 (two) Medical times Branch daily for 30 days. gabapentin 2020- No 989 800mg Take 1 [facility] vers 800 mg 5-08 06-08 tablet by ity of tablet 00:00: 04:59 mouth 3 [place] 00 :00 (three) Medical times Branch daily for 30 days. Indication s: weakness, numbness or pain from nerve damage atorvastati 2020- No [id number] 40mg Take 1 [facility] n 40 mg 5-08 06-08 tablet by ity of tablet 00:00: 04:59 mouth at [place] 00 :00 bedtime Medical for 30 Branch days. levothyroxi 2020- No [id number] 50ug Take 1 [facility] ne 50 mcg 5-08 06-08 tablet by ity of tablet 00:00: 04:59 mouth [place] 00 :00 every Medical morning Branch for 30 days. lisinopriL 2020- No [id number] 2.5mg Take 1 [facility] 2.5 mg 5-08 06-08 tablet by ity of tablet 00:00: 04:59 mouth [place] 00 :00 daily for Medical 30 days. Branch metformin 2020- No [id number] 500mg Take 1 [facility] ER 500 mg 5-08 06-08 tablet by ity of 24 hr 00:00: 04:59 mouth [place] tablet 00 :00 daily with Medical breakfast Branch for 30 days. omeprazole 2020- No [id number] 20mg Take 1 [facility] 20 mg 5- 06-08 capsule by ity of capsule 00:00: 04:59 mouth [place] 00 :00 daily for Medical 30 days. Branch simvastatin 2020- No [id number] 40mg Take 1 [facility] 40 mg 5- 06-08 tablet by ity of tablet 00:00: 04:59 mouth at [place] 00 :00 bedtime Medical for 30 Branch days. sennosides 2020- No [id number] 8.6mg Take 1 [facility] 8.6 mg 5-12 25-08 tablet by ity of tablet 00:00: 04:59 mouth 2 [place] 00 :00 (two) Medical times Branch daily for 30 days. tamsulosin 2020- No [id number] .4mg Take 1 [facility] 0.4 mg 24 -12 25-08 capsule by ity of hr capsule 00:00: 04:59 mouth 2 [place] 00 :00 (two) Medical times Branch daily for 30 days. venlafaxine 2020- No [id number] 75mg Take 1 [facility] 75 mg 5-08 06-08 tablet by ity of tablet 00:00: 04:59 mouth 2 [place] 00 :00 (two) Medical times Branch daily for 30 days. docusate 2020- No [id number] 100mg Take 1 [facility] 100 mg 5-08 06-08 capsule by ity of capsule 00:00: 04:59 mouth 2 [place] 00 :00 (two) Medical times Branch daily for 30 days. gabapentin 2020- No [id number] 800mg Take 1 [facility] vers 800 mg 5-08 06-08 tablet by ity of tablet 00:00: 04:59 mouth 3 [place] 00 :00 (three) Medical times Branch daily for 30 days. Indication s: weakness, numbness or pain from nerve damage atorvastati 2020- No [id number] 40mg Take 1 [facility] n 40 mg 5-08 tablet by ity of tablet 00:00: 04:59 mouth at [place] 00 :00 bedtime Medical for 30 Branch days. levothyroxi 2020- No [id number] 50ug Take 1 [facility] ne 50 mcg 09-26-08 tablet by ity of tablet 00:00: 04:59 mouth [place] 00 :00 every Medical morning Branch for 30 days. lisinopriL 2020- No [id number] 2.5mg Take 1 [facility] 2.5 mg 09-26-08 tablet by ity of tablet 00:00: 04:59 mouth [place] 00 :00 daily for Medical 30 days. Branch metformin 2020- No [id number] 500mg Take 1 [facility] ER 500 mg 09-26-08 tablet by ity of 24 hr 00:00: 04:59 mouth [place] tablet 00 :00 daily with Medical breakfast Branch for 30 days. omeprazole 2020- No [id number] 20mg Take 1 [facility] 20 mg 09-26-08 capsule by ity of capsule 00:00: 04:59 mouth [place] 00 :00 daily for Medical 30 days. Branch simvastatin 2020- No [id number] 40mg Take 1 [facility] 40 mg 09-26-08 tablet by ity of tablet 00:00: 04:59 mouth at [place] 00 :00 bedtime Medical for 30 Branch days. sennosides 2020- No [id number] 8.6mg Take 1 [facility] 8.6 mg 09-26-08 tablet by ity of tablet 00:00: 04:59 mouth 2 [place] 00 :00 (two) Medical times Branch daily for 30 days. tamsulosin 2020- No [id number] .4mg Take 1 [facility] 0.4 mg 24 -12 25-08 capsule by ity of hr capsule 00:00: 04:59 mouth 2 [place] 00 :00 (two) Medical times Branch daily for 30 days. venlafaxine 2020- No [id number] 75mg Take 1 [facility] 75 mg 5-12 25-08 tablet by ity of tablet 00:00: 04:59 mouth 2 [place] 00 :00 (two) Medical times Branch daily for 30 days. docusate 2020- No [id number] 100mg Take 1 [facility] 100 mg 09-26-08 capsule by ity of capsule 00:00: 04:59 mouth 2 [place] 00 :00 (two) Medical times Branch daily for 30 days. gabapentin 2020- No [id number] 800mg Take 1 [facility] vers 800 mg 5-08 tablet by ity of tablet 00:00: 04:59 mouth 3 [place] 00 :00 (three) Medical times Branch daily for 30 days. Indication s: weakness, numbness or pain from nerve damage atorvastati 2020- No [id number] 40mg Take 1 [facility] n 40 mg 09-26-08 tablet by ity of tablet 00:00: 04:59 mouth at [place] 00 :00 bedtime Medical for 30 Branch days. levothyroxi 2020- No [id number] 50ug Take 1 [facility] ne 50 mcg 09-26-08 tablet by ity of tablet 00:00: 04:59 mouth [place] 00 :00 every Medical morning Branch for 30 days. lisinopriL 2020- No [id number] 2.5mg Take 1 [facility] 2.5 mg 09-26-08 tablet by ity of tablet 00:00: 04:59 mouth [place] 00 :00 daily for Medical 30 days. Branch metformin 2020- No [id number] 500mg Take 1 [facility] ER 500 mg 09-26-08 tablet by ity of 24 hr 00:00: 04:59 mouth [place] tablet 00 :00 daily with Medical breakfast Branch for 30 days. omeprazole 2020- No [id number] 20mg Take 1 [facility] 20 mg -12 25-08 capsule by [facility]y of capsule 00:00: 04:59 mouth [place] 00 :00 daily for Medical 30 days. Branch simvastatin 2020- No [id number] 40mg Take 1 [facility] 40 mg 5-12 25-08 tablet by ity of tablet 00:00: 04:59 mouth at [place] 00 :00 bedtime Medical for 30 Branch days. sennosides 2020- No [id number] 8.6mg Take 1 [facility] 8.6 mg 09-26-08 tablet by ity of tablet 00:00: 04:59 mouth 2 [place] 00 :00 (two) Medical times Branch daily for 30 days. tamsulosin 2020- No [id number] .4mg Take 1 [facility] 0.4 mg 24 09-26-08 capsule by ity of hr capsule 00:00: 04:59 mouth 2 [place] 00 :00 (two) Medical times Branch daily for 30 days. venlafaxine 2020- No [id number] 75mg Take 1 [facility] 75 mg 09-26-08 tablet by ity of tablet 00:00: 04:59 mouth 2 [place] 00 :00 (two) Medical times Branch daily for 30 days. docusate 2020- No [id number] 100mg Take 1 [facility] 100 mg 09-26-08 capsule by ity of capsule 00:00: 04:59 mouth 2 [place] 00 :00 (two) Medical times Branch daily for 30 days. gabapentin 2020- No [id number] 800mg Take 1 [facility] vers 800 mg 09-26-08 tablet by ity of tablet 00:00: 04:59 mouth 3 [place] 00 :00 (three) Medical times Branch daily for 30 days. Indication s: weakness, numbness or pain from nerve damage atorvastati 2020- No [id number] 40mg Take 1 [facility] n 40 mg 09-26-08 tablet by ity of tablet 00:00: 04:59 mouth at [place] 00 :00 bedtime Medical for 30 Branch days. levothyroxi 2020- No [id number] 50ug Take 1 [facility] ne 50 mcg 09-26-08 tablet by ity of tablet 00:00: 04:59 mouth [place] 00 :00 every Medical morning Branch for 30 days. lisinopriL 2020- No [id number] 2.5mg Take 1 [facility] 2.5 mg 09-26-08 tablet by ity of tablet 00:00: 04:59 mouth [place] 00 :00 daily for Medical 30 days. Branch metformin 2020- No [id number] 500mg Take 1 [facility] ER 500 mg 5- 06-08 tablet by ity of 24 hr 00:00: 04:59 mouth [place] tablet 00 :00 daily with Medical breakfast Branch for 30 days. omeprazole 2020- No [id number] 20mg Take 1 [facility] 20 mg 5-08 06-08 capsule by ity of capsule 00:00: 04:59 mouth [place] 00 :00 daily for Medical 30 days. Branch simvastatin 2020- No [id number] 40mg Take 1 [facility] 40 mg 5-08 06-08 tablet by ity of tablet 00:00: 04:59 mouth at [place] 00 :00 bedtime Medical for 30 Branch days. sennosides 2020- No [id number] 8.6mg Take 1 [facility] 8.6 mg 5-12 25-08 tablet by ity of tablet 00:00: 04:59 mouth 2 [place] 00 :00 (two) Medical times Branch daily for 30 days. tamsulosin 2020- No [id number] .4mg Take 1 [facility] 0.4 mg 24 -12 25-08 capsule by [facility]y of hr capsule 00:00: 04:59 mouth 2 [place] 00 :00 (two) Medical times Branch daily for 30 days. venlafaxine 2020- No [id number] 75mg Take 1 [facility] 75 mg 5-12 25-08 tablet by ity of tablet 00:00: 04:59 mouth 2 [place] 00 :00 (two) Medical times Branch daily for 30 days. docusate 2020- No [id number] 100mg Take 1 [facility] 100 mg 5-12 25-08 capsule by ity of capsule 00:00: 04:59 mouth 2 [place] 00 :00 (two) Medical times Branch daily for 30 days. gabapentin 2020- No [id number] 800mg Take 1 [facility] vers 800 mg 5-08 06-08 tablet by ity of tablet 00:00: 04:59 mouth 3 [place] 00 :00 (three) Medical times Branch daily for 30 days. Indication s: weakness, numbness or pain from nerve damage atorvastati 2020- No [id number] 40mg Take 1 [facility] n 40 mg 5-08 06-08 tablet by ity of tablet 00:00: 04:59 mouth at [place] 00 :00 bedtime Medical for 30 Branch days. levothyroxi 2020- No [id number] 50ug Take 1 [facility] ne 50 mcg 09-26-08 tablet by ity of tablet 00:00: 04:59 mouth [place] 00 :00 every Medical morning Branch for 30 days. lisinopriL 2020- No [id number] 2.5mg Take 1 [facility] 2.5 mg 5-08 tablet by ity of tablet 00:00: 04:59 mouth [place] 00 :00 daily for Medical 30 days. Branch metformin 2020- No [id number] 500mg Take 1 [facility] ER 500 mg 5-08 tablet by ity of 24 hr 00:00: 04:59 mouth [place] tablet 00 :00 daily with Medical breakfast Branch for 30 days. omeprazole 2020- No [id number] 20mg Take 1 [facility] 20 mg 09-26-08 capsule by ity of capsule 00:00: 04:59 mouth [place] 00 :00 daily for Medical 30 days. Branch simvastatin 2020- No [id number] 40mg Take 1 [facility] 40 mg 09-26-08 tablet by ity of tablet 00:00: 04:59 mouth at [place] 00 :00 bedtime Medical for 30 Branch days. sennosides 2020- No [id number] 8.6mg Take 1 [facility] 8.6 mg 09-26-08 tablet by ity of tablet 00:00: 04:59 mouth 2 [place] 00 :00 (two) Medical times Branch daily for 30 days. tamsulosin 2020- No [id number] .4mg Take 1 [facility] 0.4 mg 24 -12 25-08 capsule by [facility]y of hr capsule 00:00: 04:59 mouth 2 [place] 00 :00 (two) Medical times Branch daily for 30 days. venlafaxine 2020- No [id number] 75mg Take 1 [facility] 75 mg 5-08 06-08 tablet by ity of tablet 00:00: 04:59 mouth 2 [place] 00 :00 (two) Medical times Branch daily for 30 days. docusate 2020- No [id number] 100mg Take 1 [facility] 100 mg 5-08 06-08 capsule by ity of capsule 00:00: 04:59 mouth 2 [place] 00 :00 (two) Medical times Branch daily for 30 days. gabapentin 2020- No [id number] 800mg Take 1 Uni vers 800 mg 5- 06-08 tablet by ity of tablet 00:00: 04:59 mouth 3 [place] 00 :00 (three) Medical times Branch daily for 30 days. Indication s: weakness, numbness or pain from nerve damage atorvastati 2020- No [id number] 40mg Take 1 [facility] n 40 mg 5-12 25-08 tablet by ity of tablet 00:00: 04:59 mouth at [place] 00 :00 bedtime Medical for 30 Branch days. levothyroxi 2020- No [id number] 50ug Take 1 [facility] ne 50 mcg 5-08 tablet by ity of tablet 00:00: 04:59 mouth [place] 00 :00 every Medical morning Branch for 30 days. lisinopriL 2020- No [id number] 2.5mg Take 1 [facility] 2.5 mg 09-26-08 tablet by ity of tablet 00:00: 04:59 mouth [place] 00 :00 daily for Medical 30 days. Branch metformin 2020- No [id number] 500mg Take 1 [facility] ER 500 mg 09-26-08 tablet by ity of 24 hr 00:00: 04:59 mouth [place] tablet 00 :00 daily with Medical breakfast Branch for 30 days. omeprazole 2020- No [id number] 20mg Take 1 [facility] 20 mg -12 25-08 capsule by ity of capsule 00:00: 04:59 mouth [place] 00 :00 daily for Medical 30 days. Branch simvastatin 2020- No [id number] 40mg Take 1 [facility] 40 mg 5-12 25-08 tablet by ity of tablet 00:00: 04:59 mouth at [place] 00 :00 bedtime Medical for 30 Branch days. sennosides 2020- No [id number] 8.6mg Take 1 [facility] 8.6 mg 5- 06-08 tablet by ity of tablet 00:00: 04:59 mouth 2 [place] 00 :00 (two) Medical times Branch daily for 30 days. tamsulosin 2020- No [id number] .4mg Take 1 [facility] 0.4 mg 24 09-26-08 capsule by ity of hr capsule 00:00: 04:59 mouth 2 [place] 00 :00 (two) Medical times Branch daily for 30 days. venlafaxine 2020- No [id number] 75mg Take 1 [facility] 75 mg 5-12 25-08 tablet by ity of tablet 00:00: 04:59 mouth 2 [place] 00 :00 (two) Medical times Branch daily for 30 days. docusate 2020- No [id number] 100mg Take 1 [facility] 100 mg 09-26-08 capsule by ity of capsule 00:00: 04:59 mouth 2 [place] 00 :00 (two) Medical times Branch daily for 30 days. gabapentin 2020- No [id number] 800mg Take 1 [facility] vers 800 mg 09-26-08 tablet by ity of tablet 00:00: 04:59 mouth 3 [place] 00 :00 (three) Medical times Branch daily for 30 days. Indication s: weakness, numbness or pain from nerve damage atorvastati 2020- No [id number] 40mg Take 1 [facility] n 40 mg 09-26-08 tablet by ity of tablet 00:00: 04:59 mouth at [place] 00 :00 bedtime Medical for 30 Branch days. levothyroxi 2020- No [id number] 50ug Take 1 [facility] ne 50 mcg 09-26-08 tablet by ity of tablet 00:00: 04:59 mouth [place] 00 :00 every Medical morning Branch for 30 days. lisinopriL 2020- No [id number] 2.5mg Take 1 [facility] 2.5 mg 09-26-08 tablet by ity of tablet 00:00: 04:59 mouth [place] 00 :00 daily for Medical 30 days. Branch metformin 2020- No [id number] 500mg Take 1 [facility] ER 500 mg 5-08 tablet by ity of 24 hr 00:00: 04:59 mouth [place] tablet 00 :00 daily with Medical breakfast Branch for 30 days. omeprazole 2020- No [id number] 20mg Take 1 [facility] 20 mg 5-12 25-08 capsule by ity of capsule 00:00: 04:59 mouth [place] 00 :00 daily for Medical 30 days. Branch simvastatin 2020- No [id number] 40mg Take 1 [facility] 40 mg 5-12 25-08 tablet by ity of tablet 00:00: 04:59 mouth at [place] 00 :00 bedtime Medical for 30 Branch days. sennosides 2020- No [id number] 8.6mg Take 1 [facility] 8.6 mg 5-12 25-08 tablet by ity of tablet 00:00: 04:59 mouth 2 [place] 00 :00 (two) Medical times Branch daily for 30 days. tamsulosin 2020- No [id number] .4mg Take 1 [facility] 0.4 mg 24 09-26-08 capsule by ity of hr capsule 00:00: 04:59 mouth 2 [place] 00 :00 (two) Medical times Branch daily for 30 days. venlafaxine 2020- No [id number] 75mg Take 1 [facility] 75 mg -12 25-08 tablet by ity of tablet 00:00: 04:59 mouth 2 [place] 00 :00 (two) Medical times Branch daily for 30 days. docusate 2020- No [id number] 100mg Take 1 [facility] 100 mg 09-26-08 capsule by ity of capsule 00:00: 04:59 mouth 2 [place] 00 :00 (two) Medical times Branch daily for 30 days. gabapentin 2020- No [id number] 800mg Take 1 [facility] vers 800 mg 09-26-08 tablet by ity of tablet 00:00: 04:59 mouth 3 [place] 00 :00 (three) Medical times Branch daily for 30 days. Indication s: weakness, numbness or pain from nerve damage atorvastati 2020- No [id number] 40mg Take 1 [facility] n 40 mg 5-12 25-08 tablet by ity of tablet 00:00: 04:59 mouth at [place] 00 :00 bedtime Medical for 30 Branch days. levothyroxi 2020- No [id number] 50ug Take 1 [facility] ne 50 mcg 5-12 25-08 tablet by ity of tablet 00:00: 04:59 mouth [place] 00 :00 every Medical morning Branch for 30 days. lisinopriL 2020- No [id number] 2.5mg Take 1 [facility] 2.5 mg 5-08 06-08 tablet by ity of tablet 00:00: 04:59 mouth [place] 00 :00 daily for Medical 30 days. Branch metformin 2020- No [id number] 500mg Take 1 [facility] ER 500 mg 5-08 06-08 tablet by ity of 24 hr 00:00: 04:59 mouth [place] tablet 00 :00 daily with Medical breakfast Branch for 30 days. omeprazole 2020- No [id number] 20mg Take 1 [facility] 20 mg 5-08 06-08 capsule by ity of capsule 00:00: 04:59 mouth [place] 00 :00 daily for Medical 30 days. Branch simvastatin 2020- No [id number] 40mg Take 1 [facility] 40 mg 5-08 06-08 tablet by ity of tablet 00:00: 04:59 mouth at [place] 00 :00 bedtime Medical for 30 Branch days. sennosides 2020- No [id number] 8.6mg Take 1 [facility] 8.6 mg 5-08 06-08 tablet by ity of tablet 00:00: 04:59 mouth 2 [place] 00 :00 (two) Medical times Branch daily for 30 days. tamsulosin 2020- No [id number] .4mg Take 1 [facility] 0.4 mg 24 5- 06-08 capsule by ity of hr capsule 00:00: 04:59 mouth 2 [place] 00 :00 (two) Medical times Branch daily for 30 days. venlafaxine 2020- No [id number] 75mg Take 1 [facility] 75 mg 5-08 06-08 tablet by ity of tablet 00:00: 04:59 mouth 2 [place] 00 :00 (two) Medical times Branch daily for 30 days. docusate 2020- No [id number] 100mg Take 1 [facility] 100 mg 5-08 06-08 capsule by ity of capsule 00:00: 04:59 mouth 2 [place] 00 :00 (two) Medical times Branch daily for 30 days. gabapentin 2020- No [id number] 800mg Take 1 [facility] vers 800 mg 5-08 06-08 tablet by ity of tablet 00:00: 04:59 mouth 3 [place] 00 :00 (three) Medical times Branch daily for 30 days. Indication s: weakness, numbness or pain from nerve damage atorvastati 2020- No [id number] 40mg Take 1 [facility] n 40 mg 5-08 tablet by ity of tablet 00:00: 04:59 mouth at [place] 00 :00 bedtime Medical for 30 Branch days. levothyroxi 2020- No [id number] 50ug Take 1 [facility] ne 50 mcg 09-26-08 tablet by ity of tablet 00:00: 04:59 mouth [place] 00 :00 every Medical morning Branch for 30 days. lisinopriL 2020- No [id number] 2.5mg Take 1 [facility] 2.5 mg 09-26-08 tablet by ity of tablet 00:00: 04:59 mouth [place] 00 :00 daily for Medical 30 days. Branch metformin 2020- No [id number] 500mg Take 1 [facility] ER 500 mg 09-26-08 tablet by ity of 24 hr 00:00: 04:59 mouth [place] tablet 00 :00 daily with Medical breakfast Branch for 30 days. omeprazole 2020- No [id number] 20mg Take 1 [facility] 20 mg 09-26-08 capsule by ity of capsule 00:00: 04:59 mouth [place] 00 :00 daily for Medical 30 days. Branch simvastatin 2020- No [id number] 40mg Take 1 [facility] 40 mg 09-26-08 tablet by ity of tablet 00:00: 04:59 mouth at [place] 00 :00 bedtime Medical for 30 Branch days. sennosides 2020- No [id number] 8.6mg Take 1 [facility] 8.6 mg 09-26-08 tablet by ity of tablet 00:00: 04:59 mouth 2 [place] 00 :00 (two) Medical times Branch daily for 30 days. tamsulosin 2020- No [id number] .4mg Take 1 [facility] 0.4 mg 24 09-26-08 capsule by ity of hr capsule 00:00: 04:59 mouth 2 [place] 00 :00 (two) Medical times Branch daily for 30 days. venlafaxine 2020- No [id number] 75mg Take 1 [facility] 75 mg 09-26-08 tablet by ity of tablet 00:00: 04:59 mouth 2 [place] 00 :00 (two) [facility] daily for 30 days. atorvastati Yes 40mg 40 mg, [facility] ers n (LIPITOR) 5-07 Oral, QHS, it y of tablet 40 02:00: First dose [place] mg 00 on [facility] 09/24/20 at Branch 2100, Until Discontinu ed, Routine spironolact Yes 25mg 25 mg, Univ ers one - Oral, ity of (ALDACTONE) 14:00: DAILY[place] tablet 25 00 First dose Medi uriel mg on [facility] 09/24/20 at 0900, Until Discontinu ed, Routine metoprolol Yes 12.5mg 12.5 mg, U nivers succinate 09-24 Oral, ity of XL (TOPROL 14:00: DAILY, [place] XL) tablet 00 First dose Med ical 12.5 mg on [facility] 09/24/20 at 0900, Until Discontinu ed, Routine venlafaxine Yes 75mg 75 mg, Univ ers (EFFEXOR) 09-24 Oral, BID, ity of tablet 75 13:00: First dose [place] mg 00 on [facility] 09/24/20 at Branch 0800, Until Discontinu ed, Routine tamsulosin Yes .4mg 0.4 mg, [facility] ers (FLOMAX) 09-24 Oral, BID, ity o f capsule 0.4 13:00: First dose [place] mg 00 on [facility] 09/24/20 at Branch 0800, Until Discontinu ed, Routine gabapentin 0 Yes 989 800mg 800 mg, Uni vers (NEURONTIN) - Oral, TID, it y of tablet 800 13:00: First dose [place] mg 00 on [facility] 09/24/20 at Branch 0800, Until Discontinu ed, Routine apixaban Yes 1358 5mg 5 mg, Univers (ELIQUIS) 5- Oral, BID, ity of tablet 5 mg 13:00: First dose [place] 00 on [facility] 09/24/20 at Branch 0800, Until Discontinu ed, Routine Sliding Yes Subcutaneo Univ ers Scale 5-06 us, TID ity of Insulin - 13:00: MEALS, [place] Lispro 00 First dose Medical (HumaLOG) + on [facility] Branch [facility] 09/24/20 at Testing 0800, Until Discontinu ed, Routine insulin NPH 2020- No 7U 7 Units, U nivers and regular 09-24 05-08 Subcutaneo i ty of human 70-30 12:30: 12:30 us, BIDAC, [place] (HUMULIN 00 :54 First dose Medic al 70-30 U-100 on [facility] INSULIN) 09/24/20 at 100 unit/mL 0730, (70-30) Until injection 7 Discontinu Units ed, Routine glipiZIDE 2020- No 5mg 5 mg, Univer s (GLUCOTROL) 09-24-08 Oral, ity of tablet 5 mg 12:30: 08:26 BIDAC, [place] 00 :38 First dose Medical on [facility] Branch 09/24/20 at 0730, Until Discontinu ed, Routine levothyroxi Yes 50ug 50 mcg, Uni vers ne -06 Oral, ity of (SYNTHROID) 11:00: QAM-0600, [place] tablet 50 00 First dose Medi uriel mcg on [facility] Branch 09/24/20 at 0600, Until Discontinu ed, Routine furosemide Yes 40mg 40 mg, IV [place] (LASIX) 5 Push, Q8H, ity of injection 11:00: First dose [place] 40 mg 00 (after Medical last Branch reorder) on [facility] 09/24/20 at 0600, Until Discontinu ed, [place] morpHINE 2020- No 2mg 2 mg, Slow [place] injection 2 09-24-06 IV Push, ity of mg 10:30: 09:22 ONCE, 1 [place] 00 :00 dose, [facility] Medical 09/24/20 at Branch 0530, Routine morpHINE Yes 1mg 1 mg, Slow Uni vers injection 1 -06 IV Push, ity of mg 10:17: Q4HPRN, [place] 07 Starting Medical [facility] 09/24/20 Branch at 0517, Until Discontinu ed, Routine, Pain (scale 7-10) traMADoL No 50mg 50 mg, Univer s (ULTRAM) 09-24 05-06 Oral, ity of tablet 50 06:15: 05:15 ONCE, 1 [place] mg 00 :00 dose, [facility] 09/24/20 at Branch 0115, Routine sennosides Yes 8.6mg 8.6 mg, Uni vers (SENOKOT) 06 Oral, BID, ity of tablet 8.6 01:45: First dose [place] mg 00 on Mon Medical 09/23/20 at Branch 2045, Until Discontinu ed, Routine docusate Yes 100mg 100 mg, Unive rs (COLACE) 09-24 Oral, BID, ity o f capsule 100 01:45: First dose [place] mg 00 on Mon [facility] 09/23/20 at Branch 204, Until Discontinu ed, Routine ondansetron Yes 4mg 4 mg, Slow Univers (ZOFRAN 09-24 IV Push, ity of (PF)) 01:35: Q6HPRN, [place] injection 4 33 Starting Medi uriel mg [facility] 09/23/20 Branch at 2034, Until Discontinu ed, Routine, Nausea and Vomiting (N/V) glucagon Yes 1mg 1 mg, Univers (GLUCAGEN 09-24 Intramuscu ity of DIAGNOSTIC 01:34: lar, PRN, [place] KIT) 10 Starting Medical injection 1 Mon09/23/20 Br anch mg at 2033, Until Discontinu ed, PIERRE, Blood Glucose < or = 70 mg/dL and patient is unable to swallow or has mental changes. dextrose 50 Yes 25mL 25 mL, Univ ers % in water 09-24 Slow IV ity of (D50W) 01:34: Push, PRN, [place] injection 10 Starting Medica l 25 mL Mon09/23/20 Branch at 2033, Until Discontinu ed, PIERRE, Blood Glucose < or = 70 mg/dL and patient is unable to swallow or has mental status changes. furosemide No 40mg 40 mg, IV U nivers (LASIX) 09-24 05-05 Push, ity of injection 00:15: 23:20 ONCE, 1 [place] 40 mg 00 :00 dose, [facility] Medical 09/23/20 at Branch 1915, [place] FENTanyl PF 2020- No 75ug 75 mcg, [place] (SUBLIMAZE 09-2405 Slow IV ity o f (PF)) 00:00: 22:52 Push, [place] injection 00 :00 ONCE, 1 Medical 75 mcg dose, [facility] 09/23/20 at 1900, STAT iohexol 2020- No [id number] 120mL 120 mL, U nivers (OMNIPAQUE 09-2305 Intravenou it y of 350 22:00: 21:38 s, ONCE, 1 [place] BULK-100 00 :00 dose, [facility] Medica l mL) 09/23/20 at [place] injection 1700, 120 mL Routine polyethylen Yes 17g 17 g, Unive rs e glycol 4-20 Oral, ity of 3350 powder 14:00: DAILY, [place] 17 g 00 First dose Medical on [place] 09/08/20 at 0900, Until Discontinu ed, Routine simvastatin Yes 40mg Take 40 mg Univers 40 mg 4-20 by mouth ity of tablet 11:05: at [place] [id number] bedtime. Medical Branch omeprazole Yes 20mg Take 20 mg U nivers 20 mg 4-20 by mouth ity of capsule 11:05: daily. Medical Branch metformin 2020-0 Yes 750mg Take 750 Uni vers ER 750 mg 4-20 mg by ity of 24 hr 11:05: mouth [place] tablet daily with Medical breakfast. Branch gabapentin Yes 989 600mg Take 600 [place] 600 mg 4-20 mg by ity of tablet 11:05: mouth 3 (three) Medical times [place] daily. Indication s: weakness, numbness or pain from nerve damage albuterol 0 Yes 2{puff} Inhale 2 U nivers 90 4-20 Puffs 2 ity of mcg/actuati 11:05: (two) [place] on inhaler times Medical daily. Branch simvastatin Yes 40mg Take 40 mg Univers 40 mg 4-20 by mouth ity of tablet 11:05: at [place] bedtime. Medical Branch omeprazole 2021-0 Yes 20mg Take 20 mg U nivers 20 mg 4-20 by mouth ity of capsule 11:05: daily. [place] Medical Branch metformin Yes 750mg Take 750 Uni vers ER 750 mg 4-20 mg by ity of 24 hr 11:05: mouth [place] tablet 01 daily with Medical breakfast. Branch gabapentin Yes 989 600mg Take 600 [place] 600 mg 4-20 mg by ity of tablet 11:05: mouth 3 [place] 01 (three) Medical times Branch daily. Indication s: weakness, numbness or pain from nerve damage albuterol Yes 2{puff} Inhale 2 U nivers 90 4-20 Puffs 2 ity of mcg/actuati 11:05: (two) [place] on inhaler times Medical daily. Branch levoFLOXaci Yes [id number] 500mg Take 1 Univers n 500 mg 4-19 tablet by ity of tablet 00:00: mouth [place] 00 every 24 Medical (twenty-fo Branch ur) hours. levoFLOXaci Yes [id number] 500mg Take 1 [facility] n 500 mg 4-19 tablet by ity of tablet 00:00: mouth [place] 00 every 24 Medical (twenty-fo Branch ur) hours. levoFLOXaci 2020- No [id number] 500mg Take 1 [facility] n 500 mg 4-19 05-08 tablet by ity o f tablet 00:00: 00:00 mouth [place] 00 :00 every 24 Medical (twenty-fo Branch ur) hours. levoFLOXaci Yes 500mg 500 mg, [place] n 4-18 Oral, Q24H ity of (LEVAQUIN) 21:15: ABX, First [place] tablet 500 00 dose on Medica l mg [place] 09/06/20 at 1615, Until Discontinu ed, PIERRE
Re ason for Anti-Infec tive: Documented Infection< br>Documen ludmila Infection Site: Urine
D uration of Therapy: 7 days simvastatin Yes 40mg 40 mg, Univ ers (ZOCOR) 4-16 Oral, QHS, ity of tablet 40 02:00: First dose [place] mg 00 on [facility] 09/03/20 at Branch 2100, Until Discontinu ed, Routine morpHINE Yes 2mg 2 mg, Slow Uni vers injection 2 4-15 IV Push, ity of mg 21:40: Q4HPRN, [place] 30 Starting Medical [facility] Branch 09/03/20 at 1640, Until Discontinu ed, Routine, Pain (scale 7-10) HYDROcodone 0 Yes 1{tbl} 1 tablet, Univers -acetaminop 4-15 Oral, ity of hen (NORCO) 21:40: Q4HPRN, [place] 10-325 mg 18 Starting Medica l tablet 1 [facility] tablet 09/03/20 at 1640, Until Discontinu ed, Routine, Pain (scale 4-6) acetaminoph Yes 650mg 650 mg, [place] en 4-15 Oral, ity of (TYLENOL) 21:40: Q4HPRN, [place] tablet 650 00 Starting Medic al mg [facility] Branch 09/03/20 at 1640, Until Discontinu ed, Routine, Pain (scale 1-3) ceFEPIme 2020- No 2000mg 2,000 mg, U nivers (MAXIPIME) 4-15 04-18 IV ity of 2,000 mg in 19:15: 20:05 [facility], [place] NaCl 0.9% 00 :31 Q8H ABX, Medica l (NS) 100 mL First dose Br anch MINI-BAG (after last modificati on) on [facility] 09/03/20 at 1415, Until Discontinu ed, 100 mL
Reas on for Anti-Infec tive: Empiric Therapy for Suspected Infection< br>Empiric Therapy Site: Other
O ther site: unknown
Duration of therapy: 7 days omeprazole Yes 20mg 20 mg, Unive rs (PRILOSEC) 4-15 Oral, ity of capsule 20 14:00: DAILY, [place] mg 00 First dose Medical on [facility] Branch 09/03/20 at 0900, Until Discontinu ed, Routine glipiZIDE Yes 5mg 5 mg, Univers (GLUCOTROL) 4-15 Oral, ity of tablet 5 mg 14:00: DAILY, [place] 00 First dose Medical on [facility] 09/03/20 at 0900, Until Discontinu ed, Routine aspirin Yes 81mg 81 mg, Univers chewable 4-15 Oral, ity of tablet 81 14:00: DAILY, [place] mg 00 First dose Medical on [facility] 09/03/20 at 0900, Until Discontinu ed, Routine venlafaxine Yes 75mg 75 mg, Univ ers (EFFEXOR) 4-15 Oral, BID, ity of tablet 75 13:00: First dose [place] mg 00 on [facility] 09/03/20 at Branch 0800, Until Discontinu ed, Routine tamsulosin Yes .4mg 0.4 mg, Univ ers (FLOMAX) 4-15 Oral, BID, ity o f capsule 0.4 13:00: First dose [place] mg 00 on [facility] 09/03/20 at Branch 0800, Until Discontinu ed, Routine metFORMIN Yes 750mg 750 mg, Univ ers (GLUCOPHAGE 4-15 Oral, BID ity of ) tablet 13:00: MEALS, [place] 750 mg 00 First dose Medical on [facility] 09/03/20 at 0800, Until Discontinu ed gabapentin Yes 989 600mg 600 mg, Uni vers (NEURONTIN) 4-15 Oral, TID, it y of tablet 600 13:00: First dose [place] mg 00 on [facility] 09/03/20 at Branch 0800, Until Discontinu ed, Routine apixaban Yes 1358 5mg 5 mg, Univers (ELIQUIS) 4-15 Oral, BID, ity of tablet 5 mg 13:00: First dose [place] 00 on [facility] 09/03/20 at Branch 0800, Until Discontinu ed, Routine levothyroxi Yes 50ug 50 mcg, Uni vers ne 4-15 Oral, ity of (SYNTHROID) 11:00: QAM-0600, [place] tablet 50 00 First dose Medi uriel mcg on [facility] 09/03/20 at 0600, Until Discontinu ed, Routine ceFEPIme 0 202- No 1000mg 1,000 mg, U nivers (MAXIPIME) 4-15 04-15 IV ity of 1,000 mg in 03:15: 16:39 [place], [place] NaCl 0.9% 00 :01 Q8H ABX, Medica l (NS) 50 mL First dose Bra nch MINI-BAG on Mon09/02/20 at 2215, Until Discontinu ed, 50 mL
R debbie for Anti-Infec tive: Empiric Therapy for Suspected Infection< br>Empiric Therapy Site: Other
O ther site: unknown
Duration of therapy: 7 days ondansetron Yes 4mg 4 mg, Slow Univers (ZOFRAN 4-15 IV Push, ity of (PF)) 02:10: [place], [place] injection 4 13 Starting Medi uriel mg Mon [place] 09/02/20 at 2110, Until Discontinu ed, Routine, Nausea and Vomiting (N/V) cefTRIAXone 2020- No 1000mg 1,000 mg, Univers (ROCEPHIN) 09-03 04-15 IV ity of 1,000 mg in 01:45: 02:06 [place], [place] NaCl 0.9% 00 :26 ONCE, 1 Medical (NS) 50 mL dose, Mon Bran ch MINI-BAG 09/02/20 at 2045, 50 mL
Reas on for Anti-Infec tive: Documented Infection< br>Documen ludmila Infection Site: Respirator y
Durat ion of Therapy: Other (see Comments) NaCl 0.9% Yes 1000mL at 150 Univ ers (NS) IV 4-15 mL/hr, IV ity of infusion 00:45: Infusion, [place] 1,000 mL 00 CONTINUOUS Medic al , Starting Branch Mon09/02/20 at 1945, Until Discontinu ed, [place] NaCl 0.9% 2020- No 1000mL at 999 Uni vers (NS) bolus 09-02 04-15 mL/hr, ity of infusion 23:30: 00:00 1,000 mL, [place] 1,000 mL 00 :00 IV Medical Infusion, Branch ONCE, 1 dose, Mon09/02/20 at 1830, [place]ER[place] NaCl 0.9% 2020- No 1000mL at 999 Uni vers (NS) bolus 4-14 04-15 mL/hr, ity of infusion 23:15: 02:05 1,000 mL, [place] 1,000 mL 00 :00 IV Medical Infusion, Branch ONCE, 1 dose, Mon09/02/20 at 1815, [place]ER[place] NaCl 0.9% 2020-0 2020- No 1000mL at 999 Uni vers (NS) bolus 09-02 04-14 mL/hr, ity of infusion 23:15: 22:52 1,000 mL, [place] 1,000 mL 00 :00 IV Medical Infusion, Branch ONCE, 1 dose, Mon09/02/20 at 1815, STAT gabapentin 2020-0 Yes 989 600mg Take 600 [place] 600 mg 4-07 mg by ity of tablet 16:04: mouth 3 [place] 20 (three) Medical times Branch daily. Indication s: weakness, numbness or pain from nerve damage gabapentin 2020-0 Yes 989 600mg Take 600 [place] 600 mg 4-07 mg by ity of tablet 16:04: mouth 3 [place] 20 (three) Medical times Branch daily. Indication s: weakness, numbness or pain from nerve damage gabapentin 2020-0 Yes 989 600mg Take 600 [place] 600 mg 4-07 mg by ity of tablet 16:04: mouth 3 [place] 20 (three) Medical times Branch daily. Indication s: weakness, numbness or pain from nerve damage gabapentin 2020-0 Yes 989 600mg Take 600 [place] 600 mg 4-07 mg by ity of tablet 16:04: mouth 3 [place] 20 (three) Medical times Branch daily. Indication s: weakness, numbness or pain from nerve damage metformin 2020-0 Yes 750mg Take 750 Uni vers ER 750 mg 4-07 mg by ity of 24 hr 16:03: mouth [place] tablet 08 daily with Medical breakfast. Branch metformin 2020-0 Yes 750mg Take 750 Uni vers ER 750 mg 4-07 mg by ity of 24 hr 16:03: mouth [place] tablet 08 daily with Medical breakfast. Branch metformin 2020-0 Yes 750mg Take 750 Uni vers ER 750 mg 4-07 mg by ity of 24 hr 16:03: mouth [place] tablet 08 daily with Medical breakfast. Branch metformin 2020-0 Yes 750mg Take 750 Uni vers ER 750 mg 4-07 mg by ity of 24 hr 16:03: mouth [place] tablet 08 daily with Medical breakfast. Branch omeprazole 2020-0 Yes 20mg Take 20 mg U nivers 20 mg 4-07 by mouth ity of capsule 16:02: daily. [address] omeprazole Yes 20mg Take 20 mg U nivers 20 mg 4-07 by mouth ity of capsule 16:02: daily. [address] omeprazole 0 Yes 20mg Take 20 mg U nivers 20 mg 4-07 by mouth ity of capsule 16:02: daily. [address] omeprazole Yes 20mg Take 20 mg U nivers 20 mg 4-07 by mouth ity of capsule 16:02: daily. [address] tamsulosin 2020- No [id number] .4mg Take 1 Univers 0.4 mg 24 08-26- capsule by ity of hr capsule 00:00: 04:59 mouth 2 [place] 00 :00 ([facility] times [place] daily for 90 days. tamsulosin 2020- No [id number] .4mg Take 1 Univers 0.4 mg 24 08-26- capsule by ity of hr capsule 00:00: 04:59 mouth 2 [place] 00 :00 ([facility]) [facility] times [place] daily for 90 days. tamsulosin 2020- No [id number] .4mg Take 1 Univers 0.4 mg 24 08-26- capsule by ity of hr capsule 00:00: 04:59 mouth 2 [place] 00 :00 ([facility] times [place] daily for 90 days. tamsulosin 2020- No [id number] .4mg Take 1 Univers 0.4 mg 24 08-26- capsule by ity of hr capsule 00:00: 04:59 mouth 2 [place] 00 :00 ([facility]) [facility] times [place] daily for 90 days. tamsulosin 2020- No [id number] .4mg Take 1 Univers 0.4 mg 24 08-26-08 capsule by ity of hr capsule 00:00: 00:00 mouth 2 [place] 00 :00 ([facility] times [place] daily for 90 days. cefdinir 0 Yes Univers 300 mg 4-05 ity of capsule 00:00: [address] cefdinir 2020-0 Yes Univers 300 mg 4-05 ity of capsule 00:00: [address] cefdinir 2020- No Univers 300 mg 4-05 04-19 ity of capsule 00:00: 00:00 [place] 00 :00 Medical Branch lisinopriL 0 Yes Univers 2.5 mg 4-02 ity of tablet 00:00: [place] 00 Medical Branch lisinopriL 0 Yes Univers 2.5 mg 4-02 ity of tablet 00:00: [place] 00 Medical Branch lisinopriL 2020-0 2020- No Univer s 2.5 mg -09-07 ity of tablet 00:00: 00:00 [place] 00 :00 Medical Branch simvastatin 0 Yes 40mg Take 40 mg Univers 40 mg 3-18 by mouth ity of tablet 22:18: at [place] [address] bedtime. Medical Branch omeprazole Yes 20mg Take 20 mg U nivers 20 mg 3-18 by mouth ity of capsule 22:18: daily. [place] [address] Medical Branch metformin 0 Yes 750mg Take 750 Uni vers ER 750 mg 3-18 mg by ity of 24 hr 22:18: mouth [place] tablet 47 daily with Medical breakfast. Branch gabapentin Yes 989 600mg Take 600 Un [place] 600 mg 3-18 mg by ity of tablet 22:18: mouth 3 [place] 47 (three) Medical times Branch daily. Indication s: weakness, numbness or pain from nerve damage simvastatin Yes 40mg Take 40 mg Univers 40 mg 3-18 by mouth ity of tablet 22:18: at [place] [address] bedtime. Medical Branch simvastatin Yes 40mg Take 40 mg Univers 40 mg 3-18 by mouth ity of tablet 22:18: at [place] [address] bedtime. Medical Branch simvastatin 0 Yes 40mg Take 40 mg Univers 40 mg 3-18 by mouth ity of tablet 22:18: at [place] [address] bedtime. Medical Branch simvastatin 0 Yes 40mg Take 40 mg Univers 40 mg 3-18 by mouth ity of tablet 22:18: at [place] [address] bedtime. Medical Branch HYDROcodone 2020- No 4647 1{tbl} Take 1 U nivers -acetaminop 3-18 - tablet by it y of hen 5-325 00:00: 04:59 mouth [place] mg tablet 00 :00 every 6 Medical (six) Branch hours as needed for Pain (scale 4-6) for up to 7 days. Indication s: acute pain morphine IR 2020-2020- No 4647 15mg Take 1 Uni vers 15 mg 08-06-26 tablet by ity of tablet 00:00: 04:59 mouth [place] 00 :00 every 4 Medical (four) Branch hours as needed for Pain (scale 7-10) for up to 7 days. Indication s: acute pain furosemide Yes 60mg 60 mg, Unive rs (LASIX) 3-16 Oral, ity of tablet 60 22:00: QAM+PM, [place] mg 00 First dose Medical on [facility] 08/04/20 at 1700, Until Discontinu ed, Routine ondansetron Yes 4mg 4 mg, Unive rs (ZOFRAN) 3-16 Oral, ity of tablet 4 mg 15:56: Q6HPRN, [place] J as 54 Starting [facility] 08/04/20 at 1056, Until Discontinu ed, Routine, Nausea and Vomiting (N/V) morphine IR Yes 15mg 15 mg, Univ ers (MSIR) 3-16 Oral, ity of tablet 15 15:56: Q4HPRN, [place] mg 11 Starting Medical [facility] 08/04/20 at 1056, Until Discontinu ed, Routine, Pain (scale 7-10) furosemide 2020- No 40mg 40 mg, IV U nivers (LASIX) 08-0216 Push, ity of injection 02:00: 15:58 Q12H, [place] 40 mg 00 :17 First dose Medical (after Branch last modificati on) on [facility] 08/01/20 at 2000, Until Discontinu ed, Routine morpHINE 2020- No 4mg 4 mg, Univers injection 4 08-0116 Intravenou i ty of mg 15:15: 15:58 s, Q4HPRN, [place] 00 :17 Starting Medical [facility] 08/01/20 at 0915, Until [facility] 08/04/20 at 1058, Routine, Pain (scale 7-10) furosemide 2020- No 40mg 40 mg, IV U nivers (LASIX) 08-0113 Push, ity of injection 15:00: 15:23 DAILY, [place] 40 mg 00 :16 First dose Medical (after Branch last modificati on) on 08/01/20 at 0900, Until Discontinu ed, Routine Polyethylen Yes 17g 17 g, Unive rs e Glycol 3-12 Oral, BID, ity o f 3350 14:00: First dose [place] (MIRALAX) 00 on Fri Medical powder 17 g 07/31/20 at Br anch 0800, Until Discontinu ed, Routine metoprolol Yes 12.5mg 12.5 mg, U nivers tartrate 3-12 Oral, BID, ity o f (LOPRESSOR) 14:00: First dose [place] half tablet 00 on Mon Medica l 12.5 mg 07/31/20 at Branch 0800, Until Discontinu ed, Routine morpHINE No 4mg 4 mg, Univers injection 4 07-31-13 Intravenou i ty of mg 07:08: 15:02 s, Q6HPRN, [place] 20 :50 Starting Medical Fri [place] 07/31/20 at 0108, Until 08/01/20 at 0902, Routine, Pain (scale 7-10) heparin Yes 1000U/h 1,000 Univer s 25,000 3-12 Units/hr ity of Units/250 07:04: (10 [place] mL 23 mL/hr), IV Medical (Premixed Infusion, Branc h Bag) in TITRATE, 0.45 % NS Parameters in Admin. Instr., Starting 07/31/20 at 0104
CA UTION - If LMWH given in ER, AVOID bolus and start next dose/drip 12 hrs after ER dosage.&nb sp; M ust program rate using programmab le infusion pump.&nbsp ; Shirley ck with the ordering provider first prior to any administra tion should the patient be on existing/a dditional anticoagul ant therapy. Rang e, Dosing and Testing: &nbs p;FOR [place], [facility], AND [facility] ONLY - aPTT < 35: & nbsp;Bolus 5000 units, increase rate 300 units/hr&n bsp; - aPTT 35-44:&nbs p; Kailash etta 3000 units, increase rate 200 units/hr&n bsp; - aPTT 45-54:&nbs p; In crease rate 100 units/hr&n bsp; - aPTT 55-85:&nbs p; NO CHANGE&nbs p; - aPTT 86-95:&nbs p; De crease rate 100 units/hr&n bsp; - aPTT 96-120:&nb sp; H old 30 minutes, decrease rate 150 units/hr&n bsp; - aPTT > 120:&n bsp; Hold 60 minutes, decrease rate 200 units/hr&n bsp; Check aPTT 6 hours after initiation , then Q6H after every change, aPTT Q12H once therapeuti c levels are reached.&n bsp; &nbs p; __ &n bsp;FOR [facility] ONLY - aPTT < 40: & nbsp;Bolus 5000 units, increase rate 300 units/hr&n bsp; - aPTT 40-49:&nbs p; Kailash etta 3000 units, increase rate 200 units/hr&n bsp; - aPTT 50-59:&nbs p; In crease rate 100 units/hr&n bsp; - aPTT 60-85:&nbs p; NO CHANGE&nbs p; - aPTT 86-95:&nbs p; De crease rate 100 units/hr&n bsp; - aPTT 96-120:&nb sp; H old 30 minutes, decrease rate 150 units/hr&n bsp; - aPTT > 120: Hold 60 minutes, decrease rate 200 units/hr&n bsp; Check aPTT 6 hours after initiation , then Q6H after every change, aPTT Q12H once therapeuti c levels are reached.&n bsp; DO NOT ADJUST INITIAL BOLUS OR INITIAL INFUSION RATE.
HEPARIN 2020- No 4000U 4,000 Univers SODIUM 07-31-12 Units, IV ity of (PORCINE) 06:30: 06:54 Push, [place] 1,000 00 :00 ONCE, 1 Medical UNIT/ML dose, Mon [place] BOLUS ACS 07/31/20 at ORDER SET 0030, Routine heparin Yes 3000U FOR Univers (1,000 3-12 REBOLUSING ity of unit/mL, 10 06:25: , Starting [place] mL vial) 13 Mon Medical for 07/31/20 at Branch Rebolusing 0025, Until Discontinu ed, Routine
Dosing based on aPTT testing parameters (refer to continuous heparin drip order).
aspirin Yes 81mg 81 mg, Univers chewable 3-10 Oral, ity of tablet 81 15:00: DAILY, [place] mg 00 First dose Medical on Mon07/29/20 at 0900, Until Discontinu ed, Routine furosemide 2020- No 40mg 40 mg, IV U nivers (LASIX) 07-29-12 Push, Q8H, ity o f injection 04:00: 17:57 First dose [place] 40 mg 00 :02 (after Medical last Branch modificati on) on Mon07/28/20 at 2200, Until Discontinu ed, Routine simvastatin Yes 40mg 40 mg, Univ ers (ZOCOR) 3-10 Oral, QHS, ity of tablet 40 03:00: First dose [place] mg 00 on Mon [facility] 07/28/20 at Branch 2100, Until Discontinu ed, Routine apixaban 2020- No 1358 5mg 5 mg, Univers (ELIQUIS) 3-02 21-12 Oral, BID, ity of tablet 5 mg 00:45: 06:27 First dose [place] 00 :09 (after Medical last Branch modificati on) on [facility] 07/28/20 at 1845, Until Discontinu ed, Routine tamsulosin Yes .4mg 0.4 mg, Univ ers (FLOMAX) 07-28 Oral, ity of capsule 0.4 15:00: DAILY, [place] mg 00 First dose Medical on [facility] 07/28/20 at 0900, Until Discontinu ed, Routine omeprazole Yes 20mg 20 mg, Unive rs (PRILOSEC) 07-28 Oral, ity of capsule 20 15:00: DAILY, [place] mg 00 First dose Medical on [facility] 07/28/20 at 0900, Until Discontinu ed, Routine venlafaxine Yes 75mg 75 mg, Univ ers (EFFEXOR) 07-28 Oral, BID, ity of tablet 75 14:00: First dose [place] mg 00 on [facility] 07/28/20 at Branch 0800, Until Discontinu ed, Routine gabapentin Yes 989 600mg 600 mg, Uni vers (NEURONTIN) 07-28 Oral, TID, it y of tablet 600 14:00: First dose [place] mg 00 on [facility] 07/28/20 at Branch 0800, Until Discontinu ed, Routine enoxaparin 2020- No 1mg/kg 100 mg Un [place] (LOVENOX) 07-28-10 (rounded ity o f injection 14:00: 00:35 from 95.3 [place] 100 mg 00 :14 mg = 1 Medical mg/kg Branch ?95.3 kg), [facility], Q12H, First dose on 07/28/20 at 0800, Until Discontinu ed, Routine glipiZIDE 2020- No 5mg 5 mg, Univer s (GLUCOTROL) 07-28-14 Oral, ity of tablet 5 mg 13:30: 13:59 BIDAC, Juan J as 00 :37 First dose Medical on [facility] 07/28/20 at 0730, Until Discontinu ed, Routine levothyroxi Yes 50ug 50 mcg, Uni vers ne 3-09 Oral, ity of (SYNTHROID) 12:00: QAM-0600, [place] tablet 50 00 First dose Medi uriel mcg on Mon Branch 07/28/20 at 0600, Until Discontinu ed, Routine ondansetron 0 2020- No 4mg 4 mg, Slow Univers (ZOFRAN 07-28 03-16 IV Push, ity of (PF)) 05:05: 15:58 Q6HPRN, [place] injection 4 10 :17 Starting Medi uriel mg [facility] 07/27/20 Branch at 2305, Until Mon08/04/20 at 1058, Routine, Nausea and Vomiting (N/V) HYDROcodone Yes 1{tbl} 1 tablet, Univers -acetaminop 09 Oral, ity of hen (NORCO 05:05: Q6HPRN, [place] 5) 5-325 mg 05 Starting Medi uriel tablet 1 [facility] 07/27/20 Branc h tablet at 2305, Until Discontinu ed, Routine, Pain (scale 4-6) acetaminoph Yes 650mg 650 mg, Un charley en 09 Oral, ity of (TYLENOL) 05:05: Q6HPRN, [place] tablet 650 03 Starting Medic al mg [facility] 07/27/20 Branch at 2305, Until Discontinu ed, Routine, Pain (scale 1-3) nitroglycer Yes .4mg 0.4 mg, Uni vers in 09 Sublingual ity of (NITROSTAT) 04:19: , Q5MIN Juan J as sublingual 48 PRN, Medical tablet 0.4 Starting Branc h mg [facility] 07/27/20 at 2219, Until Discontinu ed, Routine, Chest pain Sliding Yes Subcutaneo Univ ers Scale 3-09 us, AC+HS, ity of Insulin-Reg 03:00: First dose [place] ular + Fsbg 00 on [facility] Medica l Testing 07/27/20 at [place] 2100, Until Discontinu ed, Routine furosemide 0 2020- No 20mg 20 mg, IV U nivers (LASIX) 308 03-10 Push, Q8H, ity o f injection 22:00: 00:32 First dose [place] 20 mg 00 :14 on [facility] 07/27/20 at Branch 1600, Until Discontinu ed, Routine morpHINE 2020- No 2mg 2 mg, Univers injection 2 07-27-12 Intravenou i ty of mg 21:46: 07:08 s, Q6RN, [place] 47 :42 Starting [facility] 07/27/20 Branch at 1546, Until 07/31/20 at 0108, Routine, Pain (scale 7-10) ondansetron 2020- No 4mg 4 mg, Slow Univers (ZOFRAN 07-27 IV Push, ity of (PF)) 21:44: 05:05 Q6HPRN, [place] injection 4 34 :39 Starting Medi uriel mg [facility] 07/27/20 Branch at 1544, Until Mon07/27/20 at 2305, Routine, Nausea and Vomiting (N/V) sennosides Yes 8.6mg 8.6 mg, Uni vers (SENOKOT) 3 Oral, ity of tablet 8.6 21:40: BIDPRN, [place] mg 13 Starting [facility] 07/27/20 Branch at 1540, Until Discontinu ed, Routine, Constipati on morpHINE 2020- No 4mg 4 mg, Slow Un [place] injection 4 07-2708 IV Push, ity of mg 19:30: 18:27 ONCE, 1 [place] 00 :00 dose, [facility] 07/27/20 at Branch 1330, Routine simvastatin Yes 40mg Take 40 mg Univers 40 mg 3-02 by mouth ity of tablet 04:47: at [place] 07 bedtime. Medical Branch omeprazole Yes 20mg Take 20 mg U nivers 20 mg 3-02 by mouth ity of capsule 04:47: daily. [place] [address] Medical Branch metformin Yes 750mg Take 750 Uni vers ER 750 mg 3-02 mg by ity of 24 hr 04:47: mouth [place] tablet 07 daily with Medical breakfast. Branch gabapentin Yes 989 600mg Take 600 Un char[place] 600 mg 3-02 mg by ity of tablet 04:47: mouth 3 [place] 07 (three) Medical times Branch daily. Indication s: weakness, numbness or pain from nerve damage simvastatin 2020- Yes 40mg Take 40 mg Univers 40 mg 3-02 by mouth ity of tablet 04:47: at [place] 07 bedtime. Medical Branch omeprazole Yes 20mg Take 20 mg U nivers 20 mg 3-02 by mouth ity of capsule 04:47: daily. [place] [address] Medical Branch metformin Yes 750mg Take 750 Uni vers ER 750 mg 3-02 mg by ity of 24 hr 04:47: mouth [place] tablet 07 daily with Medical breakfast. Branch gabapentin Yes 989 600mg Take 600 Un [place] 600 mg 3-02 mg by ity of tablet 04:47: mouth 3 (three) Medical times Branch daily. Indication s: weakness, numbness or pain from nerve damage iron 2020- No 1000mg 1,000 mg, Unive rs dextran 07-20 IV ity of (INFED) 20:15: 22:21 Infusion, [place] 1,000 mg in 00 :00 ONCE, 1 Medic al NaCl 0.9% dose, [facility] Branc h (NS) 500 mL 07/20/20 at IV infusion 1415, 500 mL iron 2020- No 25mg 25 mg, IV Univers dextran 07-20 Piggyback, ity o f (INFED) 25 20:15: 20:44 ONCE, 1 [place] J as mg in NaCl 00 :00 dose, Mon Medi uriel 0.9% (NS) 07/20/20 at Branc h 100 mL IV 1415, 100 piggyback mL warfarin 5 2020- No 5mg Take 5 mg U nivers mg tablet 07-20 by mouth ity o f 18:24: 00:00 every [place] 56 :00 evening. Medical Branch sennosides- Yes 1{tbl} 1 tablet, Univers docusate 07-20 Oral, ity of sodium 15:00: DAILY, [place] (SENOKOT-S) 00 First dose Me dical 8.6-50 mg on Mon per tablet 07/20/20 at 1 tablet 0900, Until Discontinu ed, Routine Polyethylen Yes 17g 17 g, Unive rs e Glycol 07-20 Oral, BID, ity o f 3350 02:00: First dose [place] (MIRALAX) 00 (after Medical powder 17 g last Branch modificati on) on 07/19/20 at 1999, Until Discontinu ed, Routine apixaban 0 Yes 1358 5mg Take 1 Unive rs mg tablet 3-01 tablet by ity o f 00:00: mouth 2 [place] 00 (two) Medical times Branch daily. Indication s: atrial fibrillati on povidone-io Yes [id number] Apply to [facility] 3 [facility] area(s) as ity of (BETADINE) 00:00: needed [place] 10 % 00 (wound Medical solution care). Branch apixaban Yes 1358 5mg Take 1 Unive rs mg tablet 3-01 tablet by ity o f 00:00: mouth 2 [place] 00 (two) Medical times Branch daily. Indication s: atrial fibrillati on povidone-io Yes [id number] Apply to [place] [address] area(s) as ity of (BETADINE) 00:00: needed [place] 10 % 00 (wound Medical solution care). Branch apixaban Yes 1358 5mg Take 1 Unive rs mg tablet 3-01 tablet by ity o f 00:00: mouth 2 [place] 00 (two) Medical times Branch daily. Indication s: atrial fibrillati on povidone-io Yes [id number] Apply to [place] [address] area(s) as ity of (BETADINE) 00:00: needed [place] 10 % 00 (wound Medical solution care). Branch apixaban Yes 1358 5mg Take 1 Unive rs mg tablet 3-01 tablet by ity o f 00:00: mouth 2 [place] 00 (two) Medical times Branch daily. Indication s: atrial fibrillati on povidone-io Yes [id number] Apply to [facility] 3 [facility] area(s) as ity of (BETADINE) 00:00: needed [place] 10 % 00 (wound Medical solution care). Branch apixaban 5 Yes 1358 5mg Take 1 Unive rs mg tablet 3-01 tablet by ity o f 00:00: mouth 2 [place] 00 (two) Medical times Branch daily. Indication s: atrial fibrillati on povidone-io 2020-0 Yes [id number] Apply to [facility] 3 [address] area(s) as ity of (BETADINE) 00:00: needed [place] 10 % 00 (wound Medical solution care). Branch apixaban 5 0 Yes 1358 5mg Take 1 Unive rs mg tablet 3-01 tablet by ity o f 00:00: mouth 2 [place] 00 (two) Medical times Branch daily. Indication s: atrial fibrillati on povidone-io 2020- Yes [id number] Apply to [facility] 3 [facility] area(s) as ity of (BETADINE) 00:00: needed [place] 10 % 00 (wound Medical solution care). Branch apixaban 5 Yes 1358 5mg Take 1 Unive rs mg tablet 3-01 tablet by ity o f 00:00: mouth 2 [place] 00 (two) Medical times Branch daily. Indication s: atrial fibrillati on povidone-io Yes [id number] Apply to [address] [facility] area(s) as ity of (BETADINE) 00:00: needed [place] 10 % 00 (wound Medical solution care). Branch apixaban 5 Yes 1358 5mg Take 1 Unive rs mg tablet 3-01 tablet by ity o f 00:00: mouth 2 [place] 00 (two) Medical times Branch daily. Indication s: atrial fibrillati on povidone-io 2020- Yes [id number] Apply to [facility] 3 [facility] area(s) as ity of (BETADINE) 00:00: needed [place] 10 % 00 (wound Medical solution care). Branch apixaban 5 Yes 1358 5mg Take 1 Unive rs mg tablet 3-01 tablet by ity o f 00:00: mouth 2 [place] 00 (two) Medical times Branch daily. Indication s: atrial fibrillati on povidone-io 2020- Yes [id number] Apply to [facility] 3 [facility] area(s) as ity of (BETADINE) 00:00: needed [place] 10 % 00 (wound Medical solution care). Branch povidone-io 2020-0 Yes [id number] Apply to [place] [address] area(s) as ity of (BETADINE) 00:00: needed [place] 10 % 00 (wound Medical solution care). Branch povidone-io Yes [id number] Apply to [place] [address] area(s) as ity of (BETADINE) 00:00: needed [place] 10 % 00 (wound Medical solution care). Branch povidone-io Yes [id number] Apply to [place] [address] area(s) as ity of (BETADINE) 00:00: needed [place] 10 % 00 (wound Medical solution care). Branch povidone-io Yes [id number] Apply to [place] [address] area(s) as ity of (BETADINE) 00:00: needed [place] 10 % 00 (wound Medical solution care). Branch povidone-io Yes [id number] Apply to [place] [address] area(s) as ity of (BETADINE) 00:00: needed [place] 10 % 00 (wound Medical solution care). Branch povidone-io Yes [id number] Apply to [place] [address] area(s) as ity of (BETADINE) 00:00: needed [place] 10 % 00 (wound Medical solution care). Branch povidone-io Yes [id number] Apply to [place] [address] area(s) as ity of (BETADINE) 00:00: needed [place] 10 % 00 (wound Medical solution care). Branch povidone-io Yes [id number] Apply to [place] [address] area(s) as ity of (BETADINE) 00:00: needed [place] 10 % 00 (wound Medical solution care). Branch povidone-io Yes [id number] Apply to [place] [address] area(s) as ity of (BETADINE) 00:00: needed [place] 10 % 00 (wound Medical solution care). Branch povidone-io Yes [id number] Apply to [place] [address] area(s) as ity of (BETADINE) 00:00: needed [place] 10 % 00 (wound Medical solution care). Branch povidone-io Yes [id number] Apply to [facility] 07-20 [address] area(s) as ity of (BETADINE) 00:00: needed [place] 10 % 00 (wound Medical solution care). Branch povidone-io 2020- No [id number] Apply to [facility] 07-20 [address] area(s) as ity of (BETADINE) 00:00: 00:00 needed [place] 10 % 00 :00 (wound Medical solution care). Branch apixaban 5 2020- No 1358 5mg Take 1 Univ ers mg tablet 07-20 tablet by ity of 00:00: 00:00 mouth 2 [place] 00 :00 (two) Medical times Branch daily. Indication s: atrial fibrillati on HYDROcodone 2020- No 4647 1{tbl} Take 1 U nivers -acetaminop 07-2018 tablet by it y of hen 10-325 00:00: 00:00 mouth [place] mg tablet 00 :00 every 6 Medical (six) Branch hours as needed for Pain (scale 4-6) for up to 7 days. Indication s: acute pain HYDROcodone 2020- No 4647 1{tbl} Take 1 U nivers -acetaminop -05 24-09 tablet by it y of hen 10-325 00:00: 05:59 mouth [place] mg tablet 00 :00 every 6 Medical (six) Branch hours as needed for Pain (scale 4-6) for up to 7 days. Indication s: acute pain HYDROcodone 2020- No 4647 1{tbl} Take 1 U nivers -acetaminop 3-05 24-09 tablet by it y of hen 10-325 00:00: 05:59 mouth [place] mg tablet 00 :00 every 6 Medical (six) Branch hours as needed for Pain (scale 4-6) for up to 7 days. Indication s: acute pain magnesium 2020- No 296mL 296 mL, Uni vers citrate 07-19 02-28 Oral, ity of solution 16:30: 17:50 ONCE, 1 [place] 296 mL 00 :00 dose, [facility] 2/28/21 at Branch 1030, Routine iohexol No 120mL 120 mL, Unive rs (OMNIPAQUE 07-18 Intravenou it y of 350 21:15: 21:15 s, ONCE, 1 [place] BULK-150 00 :00 dose, Sat Medica l mL) 07/18/20 at Branch injection 1515, 120 mL Routine Polyethylen No 17g 17 g, Univ ers e Glycol 07-18 Oral, ity of 3350 15:00: 15:11 DAILY, [place] (MIRALAX) 00 :14 First dose Medi uriel powder 17 g on [facility] Branch 07/18/20 at 0900, Until Discontinu ed, Routine HYDROcodone Yes 1{tbl} 1 tablet, Univers -acetaminop 2-25 Oral, Q6H, it y of hen (NORCO) 00:00: First dose [place] 10-325 mg 00 on Mon Medical tablet 1 07/15/20 at [facility] h tablet 1800, Until Discontinu ed, Routine doxycycline No 100mg 100 mg, U nivers hyclate 07-16- Oral, ity of (Vibramycin 00:00: 13:05 Q12HA2, [place] ) capsule 00 :18 First dose Medi uriel 100 mg on [facility] Branch 07/15/20 at 1800, Until Discontinu ed, PIERRE
Re ason for Anti-Infec tive: Documented Infection< br>Documen ludmila Infection Site: Bone
Du ration of Therapy: 7 days morpHINE No 4mg 4 mg, Slow Un char[place] injection 4 07-15 IV Push, ity of mg 18:06: 13:19 Q4HPRN, [place] 03 :01 Starting Medical Wed Branch 07/15/20 at 1206, Until Mon07/17/20 at 0719, Routine, Pain (scale 7-10) ampicillin- 2020- No 3g 3 g, IV [place] sulbactam 07-15 Piggyback, ity of (UNASYN) 3 06:45: 18:03 Q6H ABX, [place] g in NaCl 00 :37 First dose Medi uriel 0.9% (NS) on [facility] Branch 100 mL 07/15/20 at MINI-BAG 0045, Until Discontinu ed, 100 mL
Reas on for Anti-Infec tive: Empiric Therapy for Suspected Infection< br>Empiric Therapy Site: Skin / Soft tissue
Duration of therapy: 7 days NaCl 0.45% 2020- No 1000mL at 100 Un [place] (1/2NS) IV 07-14 mL/hr, ity of infusion 21:45: 13:08 1,000 mL, Juan J as 1,000 mL 00 :22 IV Medical Infusion, Branch CONTINUOUS , Starting 07/14/20 at 1545, Until 07/18/20 at 0708, Routine morpHINE 2020- No 4mg 4 mg, Slow [place] injection 4 07-13 IV Push, ity of mg 16:59: 16:58 Q4HPRN, [place] 50 :50 Starting Medical [facility] 07/13/20 at 1059, Until [facility] 07/15/20 at 1058, Routine, Pain (scale 7-10) furosemide 2020- No 40mg 40 mg, Univ ers (LASIX) 07-12 Oral, ity of tablet 40 15:00: 14:27 DAILY, [place] mg 00 :37 First dose Medical (after Branch last modificati on) on [place] 07/12/20 at 0900, Until Discontinu ed, Routine morpHINE 2020- No 4mg 4 mg, Slow [place] injection 4 07-12 IV Push, ity of mg 09:35: 09:34 Q4HPRN, [place] 59 :59 Starting Medical [facility] 07/12/20 at 0335, Until [facility] 07/13/20 at 0334, Routine, Pain (scale 7-10) simvastatin Yes 40mg 40 mg, Univ ers (ZOCOR) 2- Oral, QHS, ity of tablet 40 03:00: First dose [place] mg 00 on [facility] Medical 07/11/20 at Branch 2100, Until Discontinu ed, Routine tamsulosin Yes .4mg 0.4 mg, Univ ers (FLOMAX) 2- Oral, ity of capsule 0.4 15:00: DAILY, [place] mg 00 First dose Medical on [facility] Branch 07/11/20 at 0900, Until Discontinu ed, Routine omeprazole Yes 20mg 20 mg, Unive rs (PRILOSEC) 2-20 Oral, ity of capsule 20 15:00: DAILY, [place] mg 00 First dose Medical on [facility] Branch 07/11/20 at 0900, Until Discontinu ed, Routine aspirin Yes 81mg 81 mg, Univers chewable 2-20 Oral, ity of tablet 81 15:00: DAILY, [place] mg 00 First dose Medical on [facility] Branch 07/11/20 at 0900, Until Discontinu ed, Routine furosemide 2020- No 40mg 40 mg, Univ ers (LASIX) 07-11-20 Oral, ity of tablet 40 15:00: 23:13 QAM+PM, [place] mg 00 :00 First dose Medical on [facility] Branch 07/11/20 at 0900, Until Discontinu ed, Routine enoxaparin Yes 1mg/kg 70 mg Univ ers (LOVENOX) 220 (rounded ity of injection 14:00: from 74.8 [place] as 70 mg 00 mg = 1 Medical mg/kg Branch ?74.8 kg), Subcutaneo us, Q12H, First dose (after last modificati on) on [facility] 07/11/20 at 0800, Until Discontinu ed, Routine venlafaxine Yes 75mg 75 mg, Univ ers (EFFEXOR) 2-20 Oral, BID, ity of tablet 75 14:00: First dose [place] mg 00 on [facility] 07/11/20 at Branch 0800, Until Discontinu ed, Routine Sliding 0 Yes Subcutaneo Univ ers Scale 2-20 us, AC, ity of Insulin-Reg 13:30: First dose [place] ular + [facility] at Branch 0730, Until Discontinu ed, Routine glipiZIDE 2020- No 5mg 5 mg, Univer s (GLUCOTROL) 07-11 02-24 Oral, ity of tablet 5 mg 13:30: 05:37 BIDAC, [place] 00 :11 First dose Medical on [facility] Branch 07/11/20 at 0730, Until Discontinu ed, Routine levothyroxi Yes 50ug 50 mcg, Uni vers ne 2-20 Oral, ity of (SYNTHROID) 12:00: QAM-0600, [place] tablet 50 00 First dose Medi uriel mcg on Sat Branch 07/11/20 at 0600, Until Discontinu ed, Routine gabapentin Yes 989 600mg 600 mg, Uni vers (NEURONTIN) 2-20 Oral, TID, it y of tablet 600 11:00: First dose [place] mg 00 on Sat Medical 07/11/20 at Branch 0500, Until Discontinu ed, Routine nitroglycer Yes .4mg 0.4 mg, Uni vers in 07-11 Sublingual ity of (NITROSTAT) 10:48: , Q5MIN [place] sublingual 40 PRN, Medical tablet 0.4 Starting Branc h mg 07/11/20 at 0448, Until Discontinu ed, Routine, Chest pain piperacilli 2020- No 3.375g 3.375 g, Univers n-tazobacta 07-11 IV ity of m (ZOSYN) 09:00: 05:37 Piggyback, [place] 3.375 g in 00 :11 Q6H ABX, Medic al NaCl 0.9% First dose Bran ch (NS) 100 mL on Sat MINI-BAG 07/11/20 at 0300, Until Discontinu ed, 100 mL
R debbie for Anti-Infec tive: Empiric Therapy for Suspected Infection< br>Empiric Therapy Site: Skin / Soft tissue
Duration of therapy: 7 days vancomycin 2020- No 15mg/kg 1,000 mg Univers (VANCOCIN) 07-11 (rounded ity of 1,000 mg in 08:00: 18:03 from 1,122 [place] NaCl 0.9% 00 :37 mg = 15 Medical (NS) 250 mL mg/kg Branch VIAL-MATE ?74.8 kg), IV IV piggyback Piggyback, Q12H ABX, First dose on 07/11/20 at 0200, Until Discontinu ed, 250 mL
Reas on for Anti-Infec tive: Empiric Therapy for Suspected Infection< br>Empiric Therapy Site: Skin / Soft tissue
Duration of therapy: 7 days ondansetron 2020-0 2020- No 4mg 4 mg, Slow Univers (ZOFRAN 2-20 02-20 IV Push, ity of (PF)) 07:45: 06:36 ONCE, 1 [place] injection 4 00 :00 dose, Sat Med ical mg 07/11/20 at Branch 0145, Routine morpHINE 0 2020- No 4mg 4 mg, Slow [place] injection 4 07-1120 IV Push, ity of mg 07:30: 06:36 ONCE, 1 [place] 00 :00 dose, Sat Medical 07/11/20 at Branch 0130, PIERRE glucagon Yes 1mg 1 mg, Univers (GLUCAGEN 2-20 Intramuscu ity of DIAGNOSTIC 07:20: [place], PRN, [place] KIT) 16 Starting Medical injection 1 [facility] 07/11/20 at 0120, Until Discontinu ed, PIERRE, Blood Glucose < or = 70 mg/dL and patient is unable to swallow or has mental changes. dextrose 50 0 Yes 25mL 25 mL, Univ ers % in water 2-20 Slow IV ity of (D50W) 07:20: Push, PRN, [place] injection 16 Starting Medica l 25 mL [facility] 07/11/20 at 0120, Until Discontinu ed, PIERRE, Blood Glucose < or = 70 mg/dL and patient is unable to swallow or has mental status changes. ondansetron Yes 4mg 4 mg, Slow Univers (ZOFRAN 2-20 IV Push, ity of (PF)) 07:19: Q6HPRN, [place] injection 4 59 Starting Medi uriel mg [facility] Branch 07/11/20 at 0119, Until Discontinu ed, Routine, Nausea and Vomiting (N/V) morpHINE 2020- No 4mg 4 mg, Slow [place] injection 4 07-1121 IV Push, ity of mg 07:19: 07:18 Q4HPRN, [place] 50 :50 Starting Medical Sat [place] 07/11/20 at 0119, Until 07/12/20 at 0118, Routine, Pain (scale 7-10) acetaminoph Yes 650mg 650 mg, [place] en 2-20 Oral, ity of (TYLENOL) 07:19: Q6HPRN, [place] tablet 650 39 Starting Medic al mg [facility] Branch 07/11/20 at 0119, Until Discontinu ed, Routine, Pain (scale 1-3) FENTanyl PF 2020-2020- No 50ug 50 mcg, [place] (SUBLIMAZE 2-11 07-20 Slow IV ity o f (PF)) 06:00: 04:58 Push, [place] injection 00 :00 ONCE, 1 Medical 50 mcg dose, [facility] Branch 07/11/20 at 0000, Routine FENTanyl PF 2020- No 50ug 50 mcg, [place] (SUBLIMAZE 2-11 07-20 Slow IV ity o f (PF)) 03:00: 01:54 Push, [place] injection 00 :00 ONCE, 1 Medical 50 mcg dose, Fri Branch 07/10/20 at 2100, Routine collagenase Yes [id number] Use as Univers 250 2-03 directed ity of unit/gram 00:00: by office [place] ointment 00 Medical Branch collagenase 2020-0 Yes [id number] Use as Univers 250 2-03 directed ity of unit/gram 00:00: by office [place] ointment 00 Medical Branch collagenase 2020-0 Yes [id number] Use as Univers 250 2-03 directed ity of unit/gram 00:00: by office [place] ointment 00 Medical Branch collagenase 2020-0 Yes [id number] Use as Univers 250 2-03 directed ity of unit/gram 00:00: by office [place] ointment 00 Medical Branch collagenase 2020-0 Yes [id number] Use as Univers 250 2-03 directed ity of unit/gram 00:00: by office [place] ointment 00 Medical Branch collagenase 2020-0 Yes [id number] Use as Univers 250 2-03 directed ity of unit/gram 00:00: by office [place] ointment 00 Medical Branch collagenase 2020-0 Yes [id number] Use as Univers 250 2-03 directed ity of unit/gram 00:00: by office [place] ointment 00 Medical Branch collagenase 2020-0 Yes [id number] Use as Univers 250 2-03 directed ity of unit/gram 00:00: by office [place] ointment 00 Medical Branch collagenase 2020-0 Yes [id number] Use as Univers 250 2-03 directed ity of unit/gram 00:00: by office [place] ointment 00 Medical Branch collagenase 202-0 Yes [id number] Use as Univers 250 2-03 directed ity of unit/gram 00:00: by office [place] ointment Medical Branch collagenase 2020-0 Yes [id number] Use as Univers 250 2-03 directed ity of unit/gram 00:00: by office [place] ointment Medical Branch collagenase 2020-0 Yes [id number] Use as Univers 250 2-03 directed ity of unit/gram 00:00: by office [place] ointment Medical Branch collagenase 2020-0 Yes [id number] Use as Univers 250 2-03 directed ity of unit/gram 00:00: by office [place] ointment Medical Branch collagenase 2020-0 Yes [id number] Use as Univers 250 2-03 directed ity of unit/gram 00:00: by office [place] ointment Medical Branch collagenase 2020-0 Yes [id number] Use as Univers 250 2-03 directed ity of unit/gram 00:00: by office [place] ointment Medical Branch collagenase 2020-0 Yes [id number] Use as Univers 250 2-03 directed ity of unit/gram 00:00: by office [place] ointment Medical Branch collagenase 202-0 Yes [id number] Use as Univers 250 2-03 directed ity of unit/gram 00:00: by office [place] ointment 00 Medical Branch collagenase 202-0 Yes [id number] Use as Univers 250 2-03 directed ity of unit/gram 00:00: by office [place] ointment 00 Medical Branch collagenase 2020-0 Yes [id number] Use as Univers 250 2-03 directed ity of unit/gram 00:00: by office [place] ointment 00 Medical Branch collagenase 202-0 Yes [id number] Use as Univers 250 2-03 directed ity of unit/gram 00:00: by office [place] ointment 00 Medical Branch collagenase 2020-0 Yes [id number] Use as Univers 250 2-03 directed ity of unit/gram 00:00: by office [place] ointment 00 Medical Branch collagenase 0 Yes [id number] Use as Univers 250 2-03 directed ity of unit/gram 00:00: by office [place] ointment 00 Medical Branch collagenase 2020-0 Yes [id number] Use as Univers 250 2-03 directed ity of unit/gram 00:00: by office [place] ointment 00 Medical Branch collagenase 2020-0 Yes [id number] Use as Univers 250 2-03 directed ity of unit/gram 00:00: by office [place] ointment Medical Branch collagenase 2020-0 Yes [id number] Use as Univers 250 2-03 directed ity of unit/gram 00:00: by office [place] ointment Medical Branch collagenase 2020-0 Yes [id number] Use as Univers 250 2-03 directed ity of unit/gram 00:00: by office [place] ointment 00 Medical Branch collagenase 2020-0 Yes [id number] Use as Univers 250 1-21 directed ity of unit/gram 00:00: by office [place] ointment Medical Branch collagenase 2020-0 Yes [id number] Use as Univers 250 1-21 directed ity of unit/gram 00:00: by office [place] ointment Medical Branch collagenase 2020-0 2020- No [id number] Use as Univers 250 1-21 02-03 directed ity of unit/gram 00:00: 00:00 by office [place] ointment 00 :00 Medical Branch warfarin Yes 5mg 5 mg, Univers (COUMADIN) 1-12 Oral, ity of tablet 5 mg 23:00: DAILY AT [place] 00 1700, Medical First dose Branch on Mon06/02/20 at 1700, Until Discontinu ed, Routine
INR Goal Range: 2-3
IND ICATION (More than one indication for warfarin can be selected): Peripheral arterial disease, DVT and/or PE simvastatin Yes 40mg Take 40 mg Univers 40 mg 1-12 by mouth ity of tablet 22:03: at [place] [address] bedtime. Medical Branch warfarin 5 Yes 5mg Take 5 mg [place] mg tablet 1-12 by mouth ity of 22:03: every [place] 25 evening. Medical Branch omeprazole 2020-0 Yes 20mg Take 20 mg U nivers 20 mg 1-12 by mouth ity of capsule 22:03: daily. [place] [address] Medical Branch metformin 2020-0 Yes 750mg Take 750 Uni vers ER 750 mg 1-12 mg by ity of 24 hr 22:03: mouth [place] tablet 25 daily with Medical breakfast. Branch simvastatin 2020-0 Yes 40mg Take 40 mg Univers 40 mg 1-12 by mouth ity of tablet 22:03: at [place] [address] bedtime. Medical Branch warfarin 5 2020-0 Yes 5mg Take 5 mg [place] mg tablet 1-12 by mouth ity of 22:03: every [place] 25 evening. Medical Branch omeprazole 2020-0 Yes 20mg Take 20 mg U nivers 20 mg 1-12 by mouth ity of capsule 22:03: daily. [place] [address] Medical Branch metformin 2020-0 Yes 750mg Take 750 Uni vers ER 750 mg 1-12 mg by ity of 24 hr 22:03: mouth [place] tablet 25 daily with Medical breakfast. Branch simvastatin 2020-0 Yes 40mg Take 40 mg Univers 40 mg 1-12 by mouth ity of tablet 22:03: at [place] [address] bedtime. Medical Branch warfarin 5 2020-0 Yes 5mg Take 5 mg [place] mg tablet 1-12 by mouth ity of 22:03: every [place] [address] evening. Medical Branch omeprazole 2020-0 Yes 20mg Take 20 mg U nivers 20 mg 1-12 by mouth ity of capsule 22:03: daily. [place] [address] Medical Branch metformin 2020-0 Yes 750mg Take 750 Uni vers ER 750 mg 1-12 mg by ity of 24 hr 22:03: mouth [place] tablet 25 daily with Medical breakfast. Branch simvastatin 2020-0 Yes 40mg Take 40 mg Univers 40 mg 1-12 by mouth ity of tablet 22:03: at [place] [address] bedtime. Medical Branch warfarin 5 2020-0 Yes 5mg Take 5 mg [place] mg tablet 1-12 by mouth ity of 22:03: every [place] 25 evening. Medical Branch omeprazole 2020-0 Yes 20mg Take 20 mg U nivers 20 mg 1-12 by mouth ity of capsule 22:03: daily. [place] [address] Medical Branch metformin 2020-0 Yes 750mg Take 750 Uni vers ER 750 mg 1-12 mg by ity of 24 hr 22:03: mouth [place] tablet 25 daily with Medical breakfast. Branch simvastatin Yes 40mg Take 40 mg Univers 40 mg 12 by mouth ity of tablet 22:03: at [place] [address] bedtime. Medical Branch warfarin 5 0 Yes 5mg Take 5 mg [place] mg tablet -12 by mouth ity of 22:03: every [place] [address] evening. Medical Branch omeprazole Yes 20mg Take 20 mg U nivers 20 mg -12 by mouth ity of capsule 22:03: daily. [place] [address] Medical Branch metformin Yes 750mg Take 750 Uni vers ER 750 mg -12 mg by ity of 24 hr 22:03: mouth [place] tablet 25 daily with Medical breakfast. Branch gabapentin 2020-2020- No 300mg Take 300 U nivers 300 mg 06-02-12 mg by ity of capsule 20:27: 00:00 mouth 3 [place] 51 :00 (three) Medical times Branch daily. doxazosin 8 2020- No 8mg Take 8 mg Univers mg tablet 06-02 by mouth ity o f 20:27: 00:00 daily. [place] 51 :00 Medical Branch amLODIPine 2020- No 5mg Take 5 mg U nivers 5 mg tablet 06-02 by mouth ity of 20:27: 00:00 daily. [place] 51 :00 Medical Branch gabapentin Yes 600mg 600 mg, Uni vers (NEURONTIN) -12 Oral, TID, it y of capsule 600 20:00: First dose [place] 00 (after Medical last Branch modificati on) on Mon06/02/20 at 1400, Until Discontinu ed, Routine morpHINE Yes 2mg 2 mg, Slow Uni vers injection 2 12 IV Push, ity of mg 18:00: Q6HPRN, [place] 00 Starting Medical [facility] Branch 06/02/20 at 1200, Until Discontinu ed, Routine, Pain (scale 7-10) acetaminoph Yes 1{tbl} 1 tablet, Univers en-codeine -12 Oral, ity of (TYLENOL 17:52: Q4HPRN, [place] #3) 300-30 44 Starting Medic al mg tablet 1 [facility] tablet 06/02/20 at 1152, Until Discontinu ed, Routine, Pain (scale 4-6) warfarin 2020- No 10mg 10 mg, Univer s (COUMADIN) 06-02 Oral, ONCE it y of tablet 10 16:30: 17:55 NOW, 1 [place] mg 00 :00 dose, [facility] 06/02/20 at Branch 1030, Routine
INR Goal Range: 2-3
IND ICATION (More than one indication for warfarin can be selected): DVT and/or PE ciprofloxac Yes 500mg 500 mg, [place] in HCl 12 Oral, ity of (CIPRO) 12:00: Q12HA2, [place] tablet 500 00 First dose Med ical mg on [facility] Branch 06/02/20 at 0600, Until Discontinu ed, PIERRE
Re ason for Anti-Infec tive: Empiric Therapy for Suspected Infection< br>Empiric Therapy Site: Bone<br&gt ;Duration of therapy: 72 hours doxycycline Yes 100mg 100 mg, [place] hyclate 06-02 Oral, ity of (Vibramycin 02:00: Q12H, [place] ) capsule 00 First dose Medi uriel 100 mg on [facility] Branch 06/01/20 at 2000, Until Discontinu ed, PIERRE
Re ason for Anti-Infec tive: Empiric Therapy for Suspected Infection< br>Empiric Therapy Site: Bone
Du ration of therapy: 72 hours lactobacill Yes 1{tbl} 1 tablet, [place] [facility] us 06-02 Oral, TID, ity of acidophilus 00:15: First dose [place] (ACIDOPHILL 00 on [facility] Medica l ) 25 06/01/20 at Branch million 1815, cell -100 Until mg captab 1 Discontinu tablet ed, Routine warfarin 2020- No 10mg 10 mg, Univer s (COUMADIN) 06-02 Oral, ONCE it y of tablet 10 00:15: 23:24 NOW, 1 [place] mg 00 :00 dose, [facility] 06/01/20 at Branch 1815, Routine
INR Goal Range: 2-3
IND ICATION (More than one indication for warfarin can be selected): DVT and/or PE gabapentin 2020- No [id number] 600mg Take 2 Univers 300 mg 06-02-12 capsules ity of capsule 00:00: 05:59 by mouth 3 [place] 00 :00 (three) Medical times Branch daily for 30 days. gabapentin 2020- No [id number] 600mg Take 2 Univers 300 mg 06-02-12 capsules ity of capsule 00:00: 05:59 by mouth 3 [place] 00 :00 (three) Medical times Branch daily for 30 days. gabapentin 2020- No [id number] 600mg Take 2 Univers 300 mg 06-02- capsules ity of capsule 00:00: 05:59 by mouth 3 [place] 00 :00 (three) Medical times Branch daily for 30 days. gabapentin 2020- No [id number] 600mg Take 2 Univers 300 mg 06-02- capsules ity of capsule 00:00: 05:59 by mouth 3 [place] 00 :00 (three) Medical times Branch daily for 30 days. gabapentin 2020- No [id number] 600mg Take 2 Univers 300 mg 06-02 capsules ity of capsule 00:00: 05:59 by mouth 3 [place] 00 :00 (three) Medical times Branch daily for 30 days. insulin NPH 2020- No [id number] 16U inject 16 Univers 100 unit/mL 06-02-29 Units ity of injection 00:00: 05:59 under the [place] 00 :00 skin every Medical morning Branch and at bedtime for 16 days. insulin NPH 2020- No [id number] 16U inject 16 Univers 100 unit/mL 06-02-29 Units ity of injection 00:00: 05:59 under the [place] 00 :00 skin every Medical morning Branch and at bedtime for 16 days. insulin NPH 2020- No [id number] 16U inject 16 Univers 100 unit/mL 06-02-29 Units ity of injection 00:00: 05:59 under the [place] 00 :00 skin every Medical morning Branch and at bedtime for 16 days. insulin NPH 2020- No [id number] 16U inject 16 Univers 100 unit/mL 06-02-29 Units ity of injection 00:00: 05:59 under the [place] 00 :00 skin every Medical morning Branch and at bedtime for 16 days. ciprofloxac 2020- No [id number] 500mg Take 1 Univers in HCl 500 06-02 tablet by ity of mg tablet 00:00: 05:59 mouth [place] 00 :00 every 12 Medical (twelve) Branch hours for 10 days. doxycycline 2020- No [id number] 100mg Take 1 Univers hyclate 100 06-02 capsule by i ty of mg capsule 00:00: 05:59 mouth [place] 00 :00 every 12 Medical (twelve) Branch hours for 10 days. lactobacill 2020- No [id number] 1{tbl} Take 1 Univers us 06-02 tablet by ity of acidophilus 00:00: 05:59 mouth 2 [place] 25 million 00 :00 (two) Medical cell -100 times Branch mg captab daily for 10 days. ciprofloxac 2020- No [id number] 500mg Take 1 Univers in HCl 500 06-02 tablet by ity of mg tablet 00:00: 05:59 mouth [place] 00 :00 every 12 Medical (twelve) Branch hours for 10 days. doxycycline 2020- No [id number] 100mg Take 1 Univers hyclate 100 06-02 capsule by i ty of mg capsule 00:00: 05:59 mouth [place] 00 :00 every 12 Medical (twelve) Branch hours for 10 days. lactobacill 2020- No [id number] 1{tbl} Take 1 Univers us 06-02 tablet by ity of acidophilus 00:00: 05:59 mouth 2 [place] 25 million 00 :00 (two) Medical cell -100 times Branch mg captab daily for 10 days. ciprofloxac 2020- No [id number] 500mg Take 1 Univers in HCl 500 06-02 tablet by ity of mg tablet 00:00: 05:59 mouth [place] 00 :00 every 12 Medical (twelve) Branch hours for 10 days. doxycycline 2020- No [id number] 100mg Take 1 Univers hyclate 100 06-02 capsule by i ty of mg capsule 00:00: 05:59 mouth [place] 00 :00 every 12 Medical (twelve) Branch hours for 10 days. lactobacill 2020- No [id number] 1{tbl} Take 1 Univers us 06-02 tablet by ity of acidophilus 00:00: 05:59 mouth 2 [place] 25 million 00 :00 (two) Medical cell -100 times Branch mg captab daily for 10 days. ciprofloxac 2020- No [id number] 500mg Take 1 Univers in HCl 500 06-02 tablet by ity of mg tablet 00:00: 05:59 mouth [place] 00 :00 every 12 Medical (twelve) Branch hours for 10 days. doxycycline 2020- No [id number] 100mg Take 1 Univers hyclate 100 06-02 capsule by i ty of mg capsule 00:00: 05:59 mouth [place] 00 :00 every 12 Medical (twelve) Branch hours for 10 days. lactobacill 2020- No [id number] 1{tbl} Take 1 Univers us 06-02 tablet by ity of acidophilus 00:00: 05:59 mouth 2 [place] 25 million 00 :00 (two) Medical cell -100 times Branch mg captab daily for 10 days. acetaminoph 2020- No [id number] 1{tbl} Take 1 U nivers en-codeine 06-02 tablet by ity of 300-30 mg 00:00: 05:59 mouth [place] tablet 00 :00 every 6 Medical (six) Branch hours as needed for Pain (scale 4-6) for up to 7 days. Indication s: acute pain acetaminoph 2020- No [id number] 1{tbl} Take 1 U nivers en-codeine 06-02 tablet by ity of 300-30 mg 00:00: 05:59 mouth [place] tablet 00 :00 every 6 Medical (six) Branch hours as needed for Pain (scale 4-6) for up to 7 days. Indication s: acute pain ketorolac 2020- No 15mg 15 mg, Unive rs (TORADOL) 06-01 Slow IV ity of injection 12:45: 12:09 Push, [place] 15 mg 00 :00 ONCE, 1 Medical dose, [facility] 06/01/20 at 0645, Routine
membership advisor approving Restricted medication : OC BRYSON warfarin 2020- No 5mg 5 mg, Univers (COUMADIN) 05-30 Oral, ONCE it y of tablet 5 mg 23:00: 23:08 AT 1700, 1 [place] 00 :00 dose, [facility] 05/30/20 at Branch 1700, Routine
INR Goal Range: 2-3
IND ICATION (More than one indication for warfarin can be selected): DVT and/or PE tamsulosin Yes .4mg 0.4 mg, Univ ers (FLOMAX) 05-30 Oral, ity of capsule 0.4 15:00: DAILY, [place] mg 00 First dose Medical on [facility] 05/30/20 at 0900, Until Discontinu ed, Routine omeprazole Yes 20mg 20 mg, Unive rs (PRILOSEC) 05-30 Oral, ity of capsule 20 15:00: DAILY, [place] mg 00 First dose Medical on [facility] 05/30/20 at 0900, Until Discontinu ed, Routine glipiZIDE Yes 5mg 5 mg, Univers (GLUCOTROL) 05-30 Oral, ity of tablet 5 mg 15:00: DAILY, [place] 00 First dose Medical on [facility] 05/30/20 at 0900, Until Discontinu ed, Routine clopidogreL Yes 75mg 75 mg, Univ ers (PLAVIX) 05-30 Oral, ity of tablet 75 15:00: DAILY, [place] mg 00 First dose Medical on [facility] 05/30/20 at 0900, Until Discontinu ed, Routine lisinopriL 2020- No 2.5mg 2.5 mg, [place] (PRINIVIL,Z 05-30 Oral, ity of ESTRIL) 15:00: 18:14 DAILY, [place] tablet 2.5 00 :04 First dose Med ical mg on [facility] 05/30/20 at 0900, Until Discontinu ed, Routine doxazosin 2020- No 8mg 8 mg, Univer s (CARDURA) 05-30 Oral, ity of tablet 8 mg 15:00: 18:14 DAILY, [place] 00 :04 First dose Medical on Sat Branch 05/30/20 at 0900, Until Discontinu ed, Routine aspirin 2020- No 81mg 81 mg, Univers chewable 05-3012 Oral, ity of tablet 81 15:00: 00:11 DAILY, [place] mg 00 :16 First dose Medical on Sat Branch 05/30/20 at 0900, Until Discontinu ed, Routine amLODIPine No 5mg 5 mg, Unive rs (NORVASC) 05-30 Oral, ity of tablet 5 mg 15:00: 11:34 DAILY, [place] 00 :40 First dose Medical on [facility] Branch 05/30/20 at 0900, Until Discontinu ed, Routine enoxaparin Yes 1mg/kg 70 mg Univ ers (LOVENOX) 05-30 (rounded ity of injection 14:00: from 74.8 [place] 70 mg 00 mg = 1 Medical mg/kg Branch ?74.8 kg), Subcutaneo us, Q12H, First dose on [facility] 05/30/20 at 0800, Until Discontinu ed, Routine levothyroxi Yes 50ug 50 mcg, Uni vers ne 05-30 Oral, ity of (SYNTHROID) 12:00: QAM-0600, [place] tablet 50 00 First dose Medi uriel mcg on [facility] Branch 05/30/20 at 0600, Until Discontinu ed, Routine simvastatin Yes 40mg 40 mg, [facility] ers (ZOCOR) 05-30 Oral, QHS, ity of tablet 40 03:00: First dose [place] mg 00 on Mon Medical 05/29/20 at Branch 2100, Until Discontinu ed, Routine insulin NPH Yes 16U 16 Units, U nivers (HUMULIN N) 05-30 Subcutaneo it y of injection 03:00: , [place] 16 Units 00 QAM+, Medical First dose Branch on Mon05/29/20 at 2100, Until Discontinu ed, Routine venlafaxine Yes 75mg 75 mg, Univ ers (EFFEXOR) 05-30 Oral, BID, ity of tablet 75 02:00: First dose [place] mg 00 on Mon Medical 05/29/20 at [place] 1999, Until Discontinu ed, Routine gabapentin 2020- No 300mg 300 mg, [place] (NEURONTIN) 05-30 Oral, TID, i ty of capsule 300 02:00: 17:53 First dose [place] mg 00 :30 on Mon Medical 05/29/20 at [place] 1999, Until Discontinu ed, Routine vancomycin 2020- No 1000mg 1,000 mg, Univers (VANCOCIN) 05-30 IV ity of 1,000 mg in 02:00: 14:39 [place], [place] NaCl 0.9% 00 :56 Q12H ABX, Medic al (NS) 250 mL First dose Br anch VIAL-MATE on Mon IV 05/29/20 at [facility] 1999, Until Discontinu ed, 250 mL
R debbie for Anti-Infec tive: Empiric Therapy for Suspected Infection< br>Empiric Therapy Site: Bone
Du ration of therapy: 7 days vancomycin No 1000mg 1,000 mg, Univers (VANCOCIN) 05-30 IV ity of injection 02:00: 21:[facility] [place] [facility] 00 :35 Q12H, Medical First dose Branch on Mon05/29/20 at 2000, Until Discontinu ed, PEIRRE
Re ason for Anti-Infec tive: Empiric Therapy for Suspected Infection< br>Empiric Therapy Site: Bone
Duration of therapy: 7 days warfarin 2020- No 5mg 5 mg, Univers (COUMADIN) 05-30 Oral, ity of tablet 5 mg 01:30: 09:01 DAILY AT [place] 00 :04 1700, Medical First dose Branch on Mon05/29/20 at 1930, Until Discontinu ed, Routine
INR Goal Range: 2-3
IND ICATION (More than one indication for warfarin can be selected): DVT and/or PE ondansetron Yes 4mg 4 mg, Slow Univers (ZOFRAN 08 IV Push, ity of (PF)) 23:03: Q6HPRN, [place] injection 4 07 Starting Medi uriel mg [facility] 05/29/20 Branch at 1703, Until Discontinu ed, Routine, Nausea and Vomiting (N/V) furosemide Yes 40mg 40 mg, Unive rs (LASIX) 05-29 Oral, ity of tablet 40 23:00: QAM+PM, [place] mg 00 First dose Medical on Mon Branch 05/29/20 at 1700, Until Discontinu ed, Routine Sliding Yes Subcutaneo Univ ers Scale -08 us, TID ity of Insulin - 23:00: MEALS+HS, [place] Lispro 00 First dose Medical (HumaLOG) + on Mon Branch [facility] 05/29/20 at Testing 1700, Until Discontinu ed, Routine enoxaparin 2020- No 30mg 30 mg, [facility] ers (LOVENOX) 05-29 Subcutaneo ity of injection 23:00: 09:01 us, DAILY, [place] 30 mg 00 :43 First dose Medical on Mon Branch 05/29/20 at 1700, Until Discontinu ed, Routine morpHINE 2020- No 2mg 2 mg, Slow [place] injection 2 05-29 IV Push, ity of mg 22:42: 17:53 Q4HPRN, [place] 04 :30 Starting Medical 05/29/20 Branch at 1642, Until 06/02/20 at 1153, Routine, Pain (scale 7-10) piperacilli 2020- No 3.375g 3.375 g, Univers n-tazobacta 05-29 IV ity of m (ZOSYN) 21:30: 14:39 Piggyback, [place] 3.375 g in 00 :56 Q6H ABX, Medic al NaCl 0.9% First dose Bran ch (NS) 100 mL on Mon MINI-BAG 05/29/20 at 1530, Until Discontinu ed, 100 mL
R debbie for Anti-Infec tive: Empiric Therapy for Suspected Infection< br>Empiric Therapy Site: Bone
Du ration of therapy: 72 hours glucagon Yes 1mg 1 mg, Univers (GLUCAGEN 05-29 Intramuscu ity of DIAGNOSTIC 20:15: lar, PRN, [place] KIT) 39 Starting Medical injection 05/29/20 Br anch mg at 1415, Until Discontinu ed, PIERRE, Blood Glucose < or = 70 mg/dL and patient is unable to swallow or has mental changes. dextrose 50 2020- Yes 25mL 25 mL, Univ ers % in water 05-29 Slow IV ity of (D50W) 20:15: Push, PRN, [place] injection 39 Starting Medica l 25 mL 05/29/20 Branch at 1415, Until Discontinu ed, PIERRE, Blood Glucose < or = 70 mg/dL and patient is unable to swallow or has mental status changes. traMADoL 2020- No 50mg 50 mg, Univer s (ULTRAM) 05-29 Oral, ity of tablet 50 20:15: 20:14 Q6HPRN, [place] mg 20 :20 Starting Medical 05/29/20 Branch at 1415, Until 05/31/20 at 1414, Routine, Pain (scale 4-6) acetaminoph 2020- No 650mg 650 mg, U nivers en 05-29 Oral, ity of (TYLENOL) 20:15: 17:53 Q6HPRN, [place] tablet 650 13 :29 Starting Medic al mg 05/29/20 Branch at 1415, Until 06/02/20 at 1153, Routine, Pain (scale 1-3) morpHINE 2020-2020- No 4mg 4 mg, Slow [place] injection 4 05-29 IV Push, ity of mg 19:41: 19:45 ONCE, 1 [place] 00 :00 dose, Fri Medical 05/29/20 at Branch 1345, STAT ondansetron 2020- No 4mg 4 mg, Slow Univers (ZOFRAN 05-29 IV Push, ity of (PF)) 16:45: 15:55 ONCE, 1 [place] injection 4 00 :00 dose, Mon Med ical mg 05/29/20 at Branch 1045, Routine morpHINE 2020-0 2020- No 4mg 4 mg, Slow [place] injection 4 05-29 IV Push, ity of mg 16:45: 15:55 ONCE, 1 [place] 00 :00 dose, Fri Medical 05/29/20 at Branch 1045, STAT NaCl 0.9% 0 2020- No 1000mL at 999 Uni vers (NS) bolus 1-08 01-08 mL/hr, ity of infusion 16:45: 19:40 1,000 mL, [place] 1,000 mL 00 :00 IV Medical Piggyback, Branch ONCE, 1 dose, 05/29/20 at 1045, STAT bacitracin 2020- Yes [id number] Apply to Univers 500 2-03 affected ity of unit/gram 00:00: area(s) 4 [place] ointment 00 (four) Medical times Branch daily. bacitracin 2020-1 Yes [id number] Apply to Univers 500 2-03 affected ity of unit/gram 00:00: area(s) 4 [place] ointment 00 (four) Medical times Branch daily. bacitracin 2020-1 Yes [id number] Apply to [facility] 500 2-03 affected ity of unit/gram 00:00: area(s) 4 [place] ointment 00 (four) Medical times Branch daily. bacitracin 2020-1 Yes [id number] Apply to [facility] 500 2-03 affected ity of unit/gram 00:00: area(s) 4 [place] ointment 00 (four) Medical times Branch daily. bacitracin 2020-1 Yes [id number] Apply to [facility] 500 2-03 affected ity of unit/gram 00:00: area(s) 4 [place] ointment 00 (four) Medical times Branch daily. bacitracin 2020-1 Yes [id number] Apply to [facility] 500 2-03 affected ity of unit/gram 00:00: area(s) 4 [place] ointment 00 (four) Medical times Branch daily. bacitracin 2020-1 Yes [id number] Apply to [facility] 500 2-03 affected ity of unit/gram 00:00: area(s) 4 [place] ointment 00 (four) Medical times Branch daily. bacitracin 2020-1 Yes [id number] Apply to [facility] 500 2-03 affected ity of unit/gram 00:00: area(s) 4 [place] ointment 00 (four) Medical times Branch daily. bacitracin 2020-1 Yes [id number] Apply to [facility] 500 2-03 affected ity of unit/gram 00:00: area(s) 4 [place] ointment 00 (four) Medical times Branch daily. bacitracin 2019-05 Yes [id number] Apply to [facility] 500 2-03 affected ity of unit/gram 00:00: area(s) 4 [place] ointment 00 (four) Medical times Branch daily. bacitracin 2019-05- No [id number] Apply to [facility] 500 2-03 03-08 affected ity of unit/gram 00:00: 00:00 area(s) 4 [place] ointment 00 :00 (four) Medical times Branch daily. aspirin 81 2019-05 Yes [id number] 81mg Take 1 [facility] mg chewable 1-06 31394 tablet by it y of tablet 00:00: mouth [place] 00 daily. Medical Branch aspirin 81 2019-05 Yes [id number] 81mg Take 1 [facility] mg chewable 1-06 50487 tablet by it y of tablet 00:00: mouth [place] 00 daily. Medical Branch aspirin 81 2019-05 Yes [id number] 81mg Take 1 [facility] mg chewable 1-06 22715 tablet by it y of tablet 00:00: mouth [place] 00 daily. Medical Branch aspirin 81 2019-05 Yes [id number] 81mg Take 1 [facility] mg chewable 1-06 08014 tablet by it y of tablet 00:00: mouth [place] 00 daily. Medical Branch aspirin 81 2019- Yes [id number] 81mg Take 1 [facility] mg chewable 1-06 52886 tablet by it y of tablet 00:00: mouth [place] 00 daily. Medical Branch aspirin 81 2019- Yes [id number] 81mg Take 1 [facility] mg chewable 1-06 81496 tablet by it y of tablet 00:00: mouth [place] 00 daily. Medical Branch aspirin 81 2019- Yes [id number] 81mg Take 1 [facility] mg chewable 1-06 60482 tablet by it y of tablet 00:00: mouth [place] 00 daily. Medical Branch aspirin 81 2020- Yes [id number] 81mg Take 1 [facility] mg chewable 1-06 15842 tablet by it y of tablet 00:00: mouth [place] 00 daily. Medical Branch aspirin 81 2020- Yes [id number] 81mg Take 1 [facility] mg chewable 1-06 85136 tablet by it y of tablet 00:00: mouth [place] 00 daily. Medical Branch aspirin 81 2020- Yes [id number] 81mg Take 1 [facility] mg chewable 1-06 91407 tablet by it y of tablet 00:00: mouth [place] 00 daily. Medical Branch aspirin 81 2020- Yes [id number] 81mg Take 1 [facility] mg chewable 1-06 90002 tablet by it y of tablet 00:00: mouth [place] 00 daily. Medical Branch aspirin 81 2020- Yes [id number] 81mg Take 1 [facility] mg chewable 1-06 03182 tablet by it y of tablet 00:00: mouth [place] 00 daily. Medical Branch aspirin 81 2020- Yes [id number] 81mg Take 1 [facility] mg chewable 1-06 54865 tablet by it y of tablet 00:00: mouth [place] 00 daily. Medical Branch aspirin 81 2020- Yes [id number] 81mg Take 1 [facility] mg chewable 1-06 34169 tablet by it y of tablet 00:00: mouth [place] 00 daily. Medical Branch aspirin 81 2020- Yes [id number] 81mg Take 1 [facility] mg chewable 1-06 79982 tablet by it y of tablet 00:00: mouth [place] 00 daily. Medical Branch aspirin 81 2020- Yes [id number] 81mg Take 1 [facility] mg chewable 1-06 57854 tablet by it y of tablet 00:00: mouth [place] 00 daily. Medical Branch aspirin 81 2020- Yes [id number] 81mg Take 1 [facility] mg chewable 1-06 52141 tablet by it y of tablet 00:00: mouth [place] 00 daily. Medical Branch aspirin 81 2020- Yes [id number] 81mg Take 1 [facility] mg chewable 1-06 99452 tablet by it y of tablet 00:00: mouth [place] 00 daily. Medical Branch aspirin 81 2020- Yes [id number] 81mg Take 1 [facility] mg chewable 1-06 91267 tablet by it y of tablet 00:00: mouth [place] 00 daily. Medical Branch aspirin 81 2020- Yes [id number] 81mg Take 1 [facility] mg chewable 1-06 45133 tablet by it y of tablet 00:00: mouth [place] 00 daily. Medical Branch aspirin 81 2020- Yes [id number] 81mg Take 1 [facility] mg chewable 1-06 87713 tablet by it y of tablet 00:00: mouth [place] 00 daily. Medical Branch aspirin 81 2020- Yes [id number] 81mg Take 1 [facility] mg chewable 1-06 01149 tablet by it y of tablet 00:00: mouth [place] 00 daily. Medical Branch aspirin 81 2019-05- No [id number] 81mg Take 1 [facility] mg chewable 05-27- 24747 tablet by i ty of tablet 00:00: 00:00 mouth [place] 00 :00 daily. Medical Branch levoFLOXaci 2019- Yes 750mg 750 mg, Un [place] n 1-05 Oral, Q24H ity of (LEVAQUIN) 22:40: ABX, First [place] tablet 750 00 dose on Medica l mg [place] Branch 03/26/20 at 1645, Until Discontinu ed, PIERRE
Re ason for Anti-Infec tive: Documented Infection< br>Documen ludmila Infection Site: Skin / Soft Tissue<br& gt;Duratio n of Therapy: Other (see Comments) insulin NPH 2019-05 Yes [id number] 5U inject 5 [facility] 100 unit/mL - 82716 Units ity of injection 00:00: under the [place] 00 skin every Medical morning Branch and at bedtime. insulin NPH 2019-05 Yes [id number] 5U inject 5 [facility] 100 unit/mL - 52887 Units ity of injection 00:00: under the [place] 00 skin every Medical morning Branch and at bedtime. insulin NPH 2019-05 Yes [id number] 5U inject 5 [facility] 100 unit/mL - 99573 Units ity of injection 00:00: under the [place] 00 skin every Medical morning Branch and at bedtime. insulin NPH 2019- Yes [id number] 5U inject 5 [facility] 100 unit/mL - 11296 Units ity of injection 00:00: under the [place] 00 skin every Medical morning Branch and at bedtime. insulin NPH 2019- Yes [id number] 5U inject 5 [facility] 100 unit/mL - 33571 Units ity of injection 00:00: under the [place] 00 skin every Medical morning Branch and at bedtime. insulin NPH 2019- Yes [id number] 5U inject 5 [facility] 100 unit/mL -05 39842 Units ity of injection 00:00: under the [place] 00 skin every Medical morning Branch and at bedtime. insulin NPH 2019- Yes [id number] 5U inject 5 [facility] 100 unit/mL - 34655 Units ity of injection 00:00: under the [place] 00 skin every Medical morning Branch and at bedtime. insulin NPH 2019-05 Yes [id number] 5U inject 5 [facility] 100 unit/mL 05-26 Units ity of injection 00:00: under the [place] 00 skin every Medical morning Branch and at bedtime. acetaminoph 2019-05- No [id number] 650mg Take 2 [facility] en 325 mg 05-26 50356 tablets by it y of tablet 00:00: 04:59 mouth [place] 00 :00 every 6 Medical (six) Branch hours. acetaminoph 2019-05- No [id number] 650mg Take 2 [facility] en 325 mg 05-26 83729 tablets by it y of tablet 00:00: 04:59 mouth [place] 00 :00 every 6 Medical (six) Branch hours. acetaminoph 2019-05- No [id number] 650mg Take 2 [facility] en 325 mg 05-26 68941 tablets by it y of tablet 00:00: 04:59 mouth [place] 00 :00 every 6 Medical (six) Branch hours. acetaminoph 2019-05- No [id number] 650mg Take 2 [facility] en 325 mg 05-26 44815 tablets by it y of tablet 00:00: 04:59 mouth [place] 00 :00 every 6 Medical (six) Branch hours. acetaminoph 2019-05- No [id number] 650mg Take 2 [facility] en 325 mg 05-26 02407 tablets by it y of tablet 00:00: 04:59 mouth [place] 00 :00 every 6 Medical (six) Branch hours. acetaminoph 2019-05- No [id number] 650mg Take 2 [facility] en 325 mg 05-26 10151 tablets by it y of tablet 00:00: 04:59 mouth [place] 00 :00 every 6 Medical (six) Branch hours. acetaminoph 2019-05- No [id number] 650mg Take 2 [facility] en 325 mg 05-26 24526 tablets by it y of tablet 00:00: 04:59 mouth [place] 00 :00 every 6 Medical (six) Branch hours. acetaminoph 2019-05- No [id number] 650mg Take 2 [facility] en 325 mg 05-26 58224 tablets by it y of tablet 00:00: 04:59 mouth [place] 00 :00 every 6 Medical (six) Branch hours. acetaminoph 2019-05- No [id number] 650mg Take 2 [facility] en 325 mg 05-26 13480 tablets by it y of tablet 00:00: 04:59 mouth [place] 00 :00 every 6 Medical (six) Branch hours. acetaminoph 2019-05- No [id number] 650mg Take 2 [facility] en 325 mg 05-26 53913 tablets by it y of tablet 00:00: 04:59 mouth [place] 00 :00 every 6 Medical (six) Branch hours. acetaminoph 2019-05- No [id number] 650mg Take 2 [facility] en 325 mg 05-26 44262 tablets by it y of tablet 00:00: 04:59 mouth [place] 00 :00 every 6 Medical (six) Branch hours. acetaminoph 2019-05- No [id number] 650mg Take 2 [facility] en 325 mg 05-26 56153 tablets by it y of tablet 00:00: 04:59 mouth [place] 00 :00 every 6 Medical (six) Branch hours. acetaminoph 2019-05- No [id number] 650mg Take 2 [facility] en 325 mg 05-26 67100 tablets by it y of tablet 00:00: 04:59 mouth [place] 00 :00 every 6 Medical (six) Branch hours. acetaminoph 2019-05- No [id number] 650mg Take 2 [facility] en 325 mg 05-26 14949 tablets by it y of tablet 00:00: 04:59 mouth [place] 00 :00 every 6 Medical (six) Branch hours. acetaminoph 2019-05- No [id number] 650mg Take 2 [facility] en 325 mg 05-26 26050 tablets by it y of tablet 00:00: 04:59 mouth [place] 00 :00 every 6 Medical (six) Branch hours. acetaminoph 2019-05- No [id number] 650mg Take 2 [facility] en 325 mg 05-26 58258 tablets by it y of tablet 00:00: 04:59 mouth [place] 00 :00 every 6 Medical (six) Branch hours. acetaminoph 2019-05- No [id number] 650mg Take 2 [facility] en 325 mg 05-26 02898 tablets by it y of tablet 00:00: 04:59 mouth [place] 00 :00 every 6 Medical (six) Branch hours. acetaminoph 2019-05- No [id number] 650mg Take 2 [facility] en 325 mg 05-26 51707 tablets by it y of tablet 00:00: 04:59 mouth [place] 00 :00 every 6 Medical (six) Branch hours. acetaminoph 2019-05- No [id number] 650mg Take 2 [facility] en 325 mg 05-26 38257 tablets by it y of tablet 00:00: 04:59 mouth [place] 00 :00 every 6 Medical (six) Branch hours. acetaminoph 2019-05- No [id number] 650mg Take 2 [facility] en 325 mg 05-26 99752 tablets by it y of tablet 00:00: 04:59 mouth [place] 00 :00 every 6 Medical (six) Branch hours. acetaminoph 2019-05- No [id number] 650mg Take 2 [facility] en 325 mg 05-26 79277 tablets by it y of tablet 00:00: 04:59 mouth [place] 00 :00 every 6 Medical (six) Branch hours. acetaminoph 2019-05- No [id number] 650mg Take 2 [facility] en 325 mg 05-26 36694 tablets by it y of tablet 00:00: 04:59 mouth [place] 00 :00 every 6 Medical (six) Branch hours. acetaminoph 2019-05- No [id number] 650mg Take 2 [facility] en 325 mg 05-26 63758 tablets by it y of tablet 00:00: 04:59 mouth [place] 00 :00 every 6 Medical (six) Branch hours. acetaminoph 2019-05- No [id number] 650mg Take 2 [facility] en 325 mg 05-26 12256 tablets by it y of tablet 00:00: 04:59 mouth [place] 00 :00 every 6 Medical (six) Branch hours. acetaminoph 2019-05- No [id number] 650mg Take 2 [facility] en 325 mg 05-26 40055 tablets by it y of tablet 00:00: 04:59 mouth [place] 00 :00 every 6 Medical (six) Branch hours. acetaminoph 2019-05- No [id number] 650mg Take 2 [facility] en 325 mg 1-05 11-06 54026 tablets by it y of tablet 00:00: 04:59 mouth [place] 00 :00 every 6 Medical (six) Branch hours. acetaminoph 2019-05- No [id number] 650mg Take 2 [facility] en 325 mg 05-26 66550 tablets by it y of tablet 00:00: 04:59 mouth [place] 00 :00 every 6 Medical (six) Branch hours. acetaminoph 2019-05- No [id number] 650mg Take 2 [facility] en 325 mg 05-26 25675 tablets by it y of tablet 00:00: 04:59 mouth [place] 00 :00 every 6 Medical (six) Branch hours. acetaminoph 2019-05- No [id number] 650mg Take 2 [facility] en 325 mg 05-26 86202 tablets by it y of tablet 00:00: 04:59 mouth [place] 00 :00 every 6 Medical (six) Branch hours. acetamino 2019-05- No [id number] 650mg Take 2 [facility] en 325 mg 05-26 68971 tablets by it y of tablet 00:00: 04:59 mouth [place] 00 :00 every 6 Medical (six) Branch hours. acetaminoph 2019-05- No [id number] 650mg Take 2 [facility] en 325 mg 05-26 38575 tablets by it y of tablet 00:00: 04:59 mouth [place] 00 :00 every 6 Medical (six) Branch hours. acetaminoph 2019-05- No [id number] 650mg Take 2 [facility] en 325 mg 05-26 13786 tablets by it y of tablet 00:00: 04:59 mouth [place] 00 :00 every 6 Medical (six) Branch hours. acetaminoph 2019-05- No [id number] 650mg Take 2 [facility] en 325 mg 05-26 44019 tablets by it y of tablet 00:00: 04:59 mouth [place] 00 :00 every 6 Medical (six) Branch hours. acetaminoph 2019-05- No [id number] 650mg Take 2 [facility] en 325 mg 05-26 10941 tablets by it y of tablet 00:00: 04:59 mouth [place] 00 :00 every 6 Medical (six) Branch hours. acetaminoph 2019-05- No [id number] 650mg Take 2 [facility] en 325 mg 05-2607 tablets by it y of tablet 00:00: 04:59 mouth [place] 00 :00 every 6 Medical (six) Branch hours. acetaminoph 2019-05- No [id number] 650mg Take 2 Univers en 325 mg 05-26 87311 tablets by it y of tablet 00:00: 04:59 mouth [place] 00 :00 every 6 Medical (six) Branch hours. acetaminoph 2019-05- No [id number] 650mg Take 2 Univers en 325 mg 05-2607 tablets by it y of tablet 00:00: 04:59 mouth [place] 00 :00 every 6 Medical (six) Branch hours. acetaminoph 2019-05- No [id number] 650mg Take 2 Univers en 325 mg 05-26 tablets by it y of tablet 00:00: 04:59 mouth [place] 00 :00 every 6 Medical (six) Branch hours. insulin NPH 2019-05- No [id number] 5U inject 5 Univers 100 unit/mL 05-26 32359 Units ity o f injection 00:00: 00:00 under the [place] 00 :00 skin every Medical morning Branch and at bedtime. levoFLOXaci 2019-05- No [id number] 750mg Take 1 Univers n 750 mg 05-26 tablet by ity of tablet 00:00: 05:59 mouth [place] 00 :00 every 24 Medical (twenty-fo Branch ur) hours for 9 days. levoFLOXaci 2019-05- No [id number] 750mg Take 1 Univers n 750 mg 05-26 tablet by ity of tablet 00:00: 05:59 mouth [place] 00 :00 every 24 Medical (twenty-fo Branch ur) hours for 9 days. lisinopriL 2019-05 Yes 2.5mg 2.5 mg, Uni vers (PRINIVIL,Z 05-23 Oral, ity of ESTRIL) 15:00: DAILY, [place] tablet 2.5 00 First dose Med ical mg on Mon Branch 03/23/20 at 0900, Until Discontinu ed, Routine KCL 2019-05 Yes 20meq 20 mEq, Univers (KLOR-CON 1-02 Oral, ity of M20) tablet 15:00: DAILY, [place] 20 mEq 00 First dose Medical on [facility] 03/23/20 at 0900, Until Discontinu ed, Routine clopidogreL 2019-05 Yes 75mg 75 mg, Univ ers (PLAVIX) 02 Oral, ity of tablet 75 15:00: DAILY, [place] mg 00 First dose Medical on [facility] 03/23/20 at 0900, Until Discontinu ed, Routine metoprolol 2019-05 Yes 25mg 25 mg, Unive rs succinate 05-23 Oral, BID, ity of XL (TOPROL 02:00: First dose [place] XL) tablet 00 on [facility] 25 mg 03/22/20 at Branch 1999, Until Discontinu ed, Routine apixaban 2019-05 Yes 1358 5mg 5 mg, Univers (ELIQUIS) 05-23 Oral, BID, ity of tablet 5 mg 02:00: First dose [place] 00 on [facility] 03/22/20 at Branch 1999, Until Discontinu ed, Routine furosemide 2019-05 Yes 40mg 40 mg, Unive rs (LASIX) 05-22 Oral, ity of tablet 40 23:00: QAM+PM, [place] mg 00 First dose Medical on [facility] 03/22/20 at 1700, Until Discontinu ed, Routine levoFLOXaci 2019-05 2020- No 750mg 750 mg, U nivers n 0-31 11-04 Oral, Q24H ity of (LEVAQUIN) 12:45: 14:05 ABX, 5 [place] tablet 750 00 :00 doses, Medical mg First dose Branch on 03/21/20 at 0745, Last dose on Mon03/25/20 at 0745, PIERRE
Re ason for Anti-Infec tive: Documented Infection< br>Documen ludmila Infection Site: Skin / Soft Tissue
Duration of Therapy: 7 days acetaminoph 2019-05 Yes 650mg 650 mg, Un char[place] en 0-29 Oral, Q6H, ity of (TYLENOL) 17:00: First dose [place] tablet 650 00 (after Medical mg last Branch modificati on) on [place] 03/19/20 at 1200, Until Discontinu ed, Routine dexMEDEtomi 2019-05 2020- No ONCE INTRA Univers dine 0-28 10-28 PROCEDURE, ity of (PRECEDEX) 21:39: 21:42 Starting [place] injection 00 :23 Mon Medical 03/18/20 Branch at 1639, Until Mon03/18/20 at 1642, Routine, Intra-op acetaminoph 2019-05 2020- No Administer Univers en ADULT 03-18 over 15 ity of (OFIRMEV) 20:18: 21:42 Minutes, [place] injection 00 :23 ONCE INTRA Medi uriel PROCEDURE, Branch Starting Mon03/18/20 at 1518, Until Mon03/18/20 at 1642, Routine, Intra-op HYDROmorphO 2019-05 2020- No ONCE INTRA Univers ne 03-18 PROCEDURE, ity of (DILAUDID) 20:15: 21:42 Starting [place] injection 00 :23 [facility] Medical 03/18/20 Branch at 1515, Until Mon03/18/20 at 1642, Routine, Intra-op dexamethaso 2019-05- No ONCE INTRA Univers ne 03-18 PROCEDURE, ity of (DECADRON 19:36: 21:42 Starting [place] PHOSPHATE) 00 :23 [facility] Medical injection 03/18/20 Branch at 1436, Until Mon03/18/20 at 1642, Routine, Intra-op albumin 2019-05- No CONTINUOUS Uni vers (ALBUMINAR- 03-18 PRN, ity of 5) 5 % 19:30: 21:42 Starting [place] injection 00 :23 [facility] Medical 03/18/20 Branch at 1430, Until Mon03/18/20 at 1642, Intra-op FENTanyl PF 2019-05- No ONCE INTRA Univers (SUBLIMAZE 03-18 PROCEDURE, it y of (PF)) 19:27: 21:42 Starting [place] injection 00 :23 [facility] Medical 03/18/20 Branch at 1427, Until Mon03/18/20 at 1642, Routine, Intra-op meropenem 2019-05- No CONTINUOUS U nivers (MERREM) 03-18 PRN, ity of 500 mg in 19:21: 21:42 Starting [place] NaCl 0.9% 00 :23 [facility] Medical (NS) 100 mL 03/18/20 Bran ch IV at 1421, piggyback Until Mon03/18/20 at 1642, 100 mL, Intra-op PHENYLephri 2019-05 2020- No CONTINUOUS Univers ne 1000 03-18 PRN, ity of mcg/10 mL 19:09: 21:42 Starting [place] in 0.9% 00 :23 [facility] Medical NaCl 03/18/20 Branch syringe at 1409, Until Mon03/18/20 at 1642, Routine, Intra-op PHENYLephri 2019-05 2020- No ONCE INTRA Univers ne 1000 03-18 PROCEDURE, ity o f mcg/10 mL 19:09: 21:42 Starting [place] in 0.9% 00 :23 [facility] Medical NaCl 03/18/20 Branch syringe at 1409, Until Mon03/18/20 at 1642, Routine, Intra-op propofoL IV 2019-05- No ONCE INTRA Univers infusion 03-18 PROCEDURE, ity of 18:55: 21:42 Starting [place] 00 :23 [facility] Medical 03/18/20 Branch at 1355, Until Mon03/18/20 at 1642, Routine, Intra-op lidocaine 2019-05- No ONCE INTRA U nivers 1% 03-18 PROCEDURE, ity of (XYLOCAINE) 18:55: 21:42 [place] 100 mg/10 00 : [facility] Medical mL (1 %) 03/18/20 Branch injection at 1355, Until Mon03/18/20 at 1642, Routine, Intra-op bupivacaine 2019-05 2020- No ONCE INTRA Univers (preserv 03-18 PROCEDURE, ity of free) 18:38: 21:42 Starting [place] (SENSORCAIN 00 :23 [facility] Medical E MPF) 0.25 03/18/20 Bran ch % (2.5 at 1338, mg/mL) Until Mon injection 03/18/20 at 1642, Routine, Intra-op midazolam 2019-05 2020- No ONCE INTRA U nivers (VERSED) 03-18 PROCEDURE, ity of injection 18:22: 21:42 Starting [place] 00 :23 [facility] Medical 03/18/20 Branch at 1322, Until Mon03/18/20 at 1642, Routine, Intra-op lactated 2019-05 2020- No CONTINUOUS Un charley ringers IV 03-18 PRN, ity of infusion 18:15: 21:42 [place] 00 :23 [facility] Medical 03/18/20 Branch at 1315, Until Mon03/18/20 at 1642, Routine, Intra-op atorvastati 2019-05 Yes 40mg 40 mg, Univ ers n (LIPITOR) 0-27 Oral, QHS, it y of tablet 40 02:00: First dose [place] mg 00 on [facility] 03/16/20 Branch at 2100, Until Discontinu ed, Routine Sliding 2019-05 Yes Subcutaneo Univ ers Scale 0-26 us, Q4H, ity of Insulin-Reg 17:00: First dose [place] ular + Fsbg 00 (after Medica l Testing last Branch modificati on) on Mon03/16/20 at 1200, Until Discontinu ed, Routine HYDROcodone 2019-05 Yes 1{tbl} 1 tablet, Univers -acetaminop 0-26 Oral, ity of hen (NORCO) 16:56: Q6HPRN, [place] 10-325 mg 30 Starting Medica l tablet 1 Mon [place] tablet 03/16/20 at 1156, Until Discontinu ed, Routine, Pain (scale 4-6) NaCl 0.9% 2019-05 Yes 10mL 10 mL, Univer s (NS) 0-26 Slow IV ity of injection 16:56: Push, PRN, [place] 10 mL 09 Starting Medical [facility] Branch 03/16/20 at 1156, Until Discontinu ed, Routine, line maintenanc e lidocaine 2019-05 Yes 5mL 5 mL, Univers 1% (PF) 0-26 Subcutaneo ity of (XYLOCAINE) 16:56: us, PRN, [place] injection 5 09 Starting Medi uriel mL [facility] Branch 03/16/20 at 1156, Until Discontinu ed, Routine, Local anesthesia NaCl 0.9% 2019-05 2020- No IV Univers (NS) 1000 0- 10- Infusion, ity of mL + KCL 20 16:45: 14:26 at 150 [place] mEq 00 :04 mL/hr, Medical CONTINUOUS Branch , Starting Mon03/16/20 at 1145, Until [place] 03/19/20 at 0926, Routine NaCl 0.9% 2019-05 2020- No 1000mL at 999 Uni vers (NS) bolus 0-26 10-26 mL/hr, ity of infusion 15:00: 13:52 1,000 mL, [place] 1,000 mL 00 :00 IV Medical Piggyback, Branch ONCE, 1 dose, Mon03/16/20 at 1000, STAT KCL 2019-05- No 40meq 40 mEq, Univers (KLOR-CON 03-16 Oral, Q2H, ity of M20) tablet 15:00: 17:18 2 doses, [place] 40 mEq 00 :00 First dose Medical on Mon Branch 03/16/20 at 1000, Last dose on Mon03/16/20 at 1200, Routine heparin 2019-05- No 1300U/h 1,300 Unive rs 25,000 0 10- Units/hr ity of Units/250 14:25: 13:42 (13 [place] mL 08 :11 mL/hr), IV Medical (Premixed Infusion, Branc h Bag) in TITRATE, 0.45 % NS Parameters in Admin. Instr., Starting Mon03/16/20 at 0925
CA UTION - If LMWH given in ER, AVOID bolus and start dose/drip 12 hours after ER dosage.&nb sp; M ust program rate using programmab le infusion pump.&nbsp ; Shirley ck with the ordering provider first prior to any administra tion should the patient be on existing/a dditional anticoagul ant therapy.&n bsp; DO NOT ADJUST INITIAL BOLUS OR INITIAL INFUSION RATE&n bsp; Range, Dosing and Testing: ____ &nbs p; FO R [facility] ONLY - aPTT < 35: & nbsp;Bolus 5000 units, increase rate 300 units/hr&n bsp; - aPTT 35-44:&nbs p; Kailash etta 3000 units, increase rate 200 units/hr&n bsp; - aPTT 45-54:&nbs p; In crease rate 100 units/hr&n bsp; - aPTT 55-85:&nbs p; NO CHANGE&nbs p; - aPTT 86-95:&nbs p; De crease rate 100 units/hr&n bsp; - aPTT 96-120:&nb sp;&nb sp;Hold 30 minutes, decrease rate 150 units/hr&n bsp; - aPTT > 120: Hold 60 minutes, decrease rate 200 units/hr&n bsp; Check aPTT 6 hours after initiation , then Q6H after every change, aPTT Q12H once therapeuti c levels are reached.&n bsp; &nbs p; __ &n bsp;FOR [facility] and [facility] ONLY - aPTT < 40: & nbsp;Bolus 5000 units, increase rate 300 units/hr&n bsp; - aPTT 40-49:&nbs p; Kailash etta 3000 units, increase rate 200 units/hr&n bsp; - aPTT 50-59:&nbs p; In crease rate 100 units/hr&n bsp; - aPTT 60-85:&nbs p; NO CHANGE&nbs p; - aPTT 86-95:&nbs p; De crease rate 100 units/hr&n bsp; - aPTT 96-120:&nb sp; H old 30 minutes, decrease rate 150 units/hr&n bsp; - aPTT > 120: Hold 60 minutes, decrease rate 200 units/hr&n bsp; Check aPTT 6 hours after initiation , then Q6H after every change, aPTT Q12H once therapeuti c levels are reached.<b r> heparin 2020-1 2020- No 5000U 5,000 Univers 1000 0-16 03- Units, IV ity of unit/mL 14:15: 15:54 Push, [place] injection 00 :00 ONCE, 1 [facility] 5,000 dose, [facility] Bran ch Units 03/16/20 at 0915, Routine heparin 2020- Yes 3000U FOR Univers (1,000 0- REBOLUSING ity of unit/mL, 10 14:11: , Starting [place] mL vial) 00 [facility] 03/16/20 Branch at 0911, Until Discontinu ed, Routine
Dosing based on aPTT testing parameters (refer to continuous heparin drip order)
aspirin 2019-05 Yes 81mg 81 mg, [facility] chewable 0- Oral, ity of tablet 81 14:00: DAILY, [place] mg 00 First dose Medical on [facility] Branch 03/16/20 at 0900, Until Discontinu ed, Routine pantoprazol 2019-05 Yes 20mg 20 mg, Univ ers e 0- Oral, ity of (PROTONIX) 14:00: DAILY, [place] EC tablet 00 First dose Medi uriel 20 mg on [facility] 03/16/20 at 0900, Until Discontinu ed, Routine insulin NPH 2019-05 Yes 5U 5 Units, [facility] [place] (HUMULIN N) 0 Subcutaneo it y of injection 5 14:00: , [place] Units 00 QAM+HS, Medical First dose Branch on [facility] 03/16/20 at 0900, Until Discontinu ed, Routine lactobacill 2019-05 Yes 1{tbl} 1 tablet, Univers us 0-26 Oral, TID, ity of acidophilus 13:00: First dose [place] (ACIDOPHILL 00 on [facility] Medica l US) 25 03/16/20 Branch million at 0800, cell -100 Until mg captab 1 Discontinu tablet ed, Routine venlafaxine 2019-05 Yes 75mg 75 mg, Univ ers (EFFEXOR) 0-26 Oral, BID, ity of tablet 75 13:00: First dose [place] mg 00 on [facility] 03/16/20 Branch at 0800, Until Discontinu ed, Routine meropenem 2019-05 2020- No 500mg 500 mg, IV Univers (MERREM) 003-21 Piggyback, ity of 500 mg in 13:00: 11:33 Administer [place] NaCl 0.9% 00 :35 over 60 Medical (NS) 100 mL Minutes, Bran ch MINI-BAG Q8H ABX, First dose on [facility] 03/16/20 at 0800, Until Discontinu ed, PIERRE
Re stricted use approved by: ADC PROVIDER<b r>Reason for Anti-Infec tive: Documented Infection< br>Documen ludmila Infection Site: Skin / Soft Tissue
Duration of Therapy: 7 days morpHINE 2019-05 Yes 2mg 2 mg, Slow Uni vers injection 2 0- IV Push, ity of mg 11:24: Q4HPRN, [place] 54 Starting Medical [facility] Branch 03/16/20 at 0624, Until Discontinu ed, Routine, Pain (scale 7-10) NaCl 0.9% 2019-05 No 1000mL at 999 Uni vers (NS) bolus 0- 10-26 mL/hr, ity of infusion 11:08: 11:11 1,000 mL, [place] as 1,000 mL 00 :00 IV Medical Piggyback, [place] ONCE, 1 dose, [facility] 03/16/20 at 0615, STAT levothyroxi 2019-05 Yes 50ug 50 mcg, Uni vers ne 0-26 Oral, ity of (SYNTHROID) 11:00: QAM-0600, [place] tablet 50 00 First dose Medi uriel mcg on [facility] 03/16/20 at 0600, Until Discontinu ed, Routine HYDROcodone 2019-05 2020- No 1{tbl} 1 tablet, Univers -acetaminop 003-16 Oral, ity of hen (NORCO 09:34: 11:25 Q6HPRN, [place] 5) 5-325 mg 55 :02 Starting Medi uriel tablet 1 [facility] tablet 03/16/20 at 0434, Until [facility] 03/16/20 at 0625, Routine, Pain (scale 4-6) clindamycin 2019-05- No 900mg 900 mg, IV Univers in 5 % 003-16 Piggyback, ity of dextrose 09:00: 13:29 Q8H ABX, [place] (CLEOCIN) 00 :39 First dose Medi uriel 900 mg/50 on [facility] mL IV 03/16/20 piggyback at 0400, RTU 900 mg Until Discontinu ed, 50 mL
R debbie for Anti-Infec tive: Documented Infection< br>Documen ludmila Infection Site: Skin / Soft Tissue
Duration of Therapy: 7 days
Re stricted use approved by: ADC PROVIDER vancomycin 2019-05 2020- No 15mg/kg 1,250 mg Univers 1250 mg in 0- 10-31 (rounded ity of NS 250 mL 08:45: 11:33 from 1,191 [place] RTU IV 00 :35 mg = 15 Medical Piggyback mg/kg Branch 1,250 mg ?79.4 kg), IV Piggyback, Q24H ABX, First dose on Mon03/16/20 at 0345, Until Discontinu ed
Reas on for Anti-Infec tive: Documented Infection< br>Documen ludmila Infection Site: Skin / Soft Tissue
Duration of Therapy: 7 days NaCl 0.9% 2019-05- No 1000mL at 100 Uni vers (NS) IV 0- 10-26 mL/hr, IV ity of infusion 08:45: 15:44 Infusion, [place] as 1,000 mL 00 :40 CONTINUOUS Medic al , Starting Branch Mon03/16/20 at 0345, Until Mon03/16/20 at 1044, Routine FENTanyl PF 2019-05- No 25ug 25 mcg, [facility] [place] (SUBLIMAZE 0-26 10-26 Slow IV ity o f (PF)) 08:03: 11:25 Push, [place] injection 06 :02 Q4HPRN, Medical 25 mcg Starting Branch Mon03/16/20 at 0303, Until Mon03/16/20 at 0625, Routine, Pain (scale 7-10) ondansetron 2019-05 Yes 4mg 4 mg, Slow Univers (ZOFRAN 0-26 IV Push, ity of (PF)) 07:33: Q6HPRN, [place] injection 4 22 Starting Medi uriel mg [facility] 03/16/20 at 0233, Until Discontinu ed, Routine, Nausea and Vomiting (N/V) ondansetron 2019-05 Yes 4mg 4 mg, Slow Univers (ZOFRAN 0-26 IV Push, ity of (PF)) 07:33: Q6HPRN, [place] injection 4 22 Starting Medi uriel mg [facility] 03/16/20 at 0233, Until Discontinu ed, Routine, Nausea and Vomiting (N/V) ondansetron 2019-05- No 4mg 4 mg, Slow Univers (ZOFRAN 0-16 03- IV Push, ity of (PF)) 06:00: 06:01 ONCE, 1 [place] injection 4 00 :00 dose, [facility] Med ical mg 03/16/20 Branch at 0100, PIERRE morpHINE 2019-05- No 4mg 4 mg, Slow [place] injection 4 0- IV Push, ity of mg 06:00: 06:01 ONCE, 1 [place] 00 :00 dose, [facility] 03/16/20 Branch at 0100, STAT NaCl 0.9% 2019-05- No 30mL/kg at 999 [place] (NS) bolus 0- 10- mL/hr, ity of infusion 06:00: 06:05 2,382 mL [place] 2,382 mL 00 :00 (30 mL/kg Medica l ?79.4 kg), Branch IV Piggyback, ONCE, 1 dose, [facility] 03/16/20 at 0100, STAT piperacilli 2019-05- No 3.375g 3.375 g, Univers n-tazobacta 03-16 IV ity of m (ZOSYN) 05:00: 08:32 Piggyback, [place] injection 00 :59 Q6H, First Medi uriel 3.375 g dose on Branch [facility] 03/16/20 at 0000, Until Discontinu ed, PIERRE
Re ason for Anti-Infec tive: Empiric Therapy for Suspected Infection< br>Empiric Therapy Site: Skin / Soft tissue
Duration of therapy: 72 hours KCL 20 mEq 2020-0 Yes [id number] 20meq Take 1 [facility] tablet 9-17 tablet by ity of 00:00: mouth [place] 00 daily. [facility] KCL 20 mEq 2020-0 Yes [id number] 20meq Take 1 Univers tablet 9-17 tablet by ity of 00:00: mouth [place] 00 daily. [facility] KCL 20 mEq 2020-0 Yes [id number] 20meq Take 1 Univers tablet 9-17 tablet by ity of 00:00: mouth [place] 00 daily. [facility] KCL 20 mEq 2020-0 Yes [id number] 20meq Take 1 Univers tablet 9-17 tablet by ity of 00:00: mouth [place] 00 daily. Medical Branch KCL 20 mEq 2020-0 Yes [id number] 20meq Take 1 [facility] tablet 9-17 tablet by ity of 00:00: mouth [place] 00 daily. Medical Branch KCL 20 mEq 2020-0 Yes [id number] 20meq Take 1 [facility] tablet 9-17 tablet by ity of 00:00: mouth [place] 00 daily. Medical Branch KCL 20 mEq 2020-0 Yes [id number] 20meq Take 1 [facility] tablet 9-17 tablet by ity of 00:00: mouth [place] 00 daily. Medical Branch KCL 20 mEq 2020-0 Yes [id number] 20meq Take 1 [facility] tablet 9-17 tablet by ity of 00:00: mouth [place] 00 daily. Medical Branch KCL 20 mEq 2020-0 Yes [id number] 20meq Take 1 [facility] tablet 9-17 tablet by ity of 00:00: mouth [place] 00 daily. Medical Branch KCL 20 mEq 2020-0 Yes [id number] 20meq Take 1 [facility] tablet 9-17 tablet by ity of 00:00: mouth [place] 00 daily. Medical Branch KCL 20 mEq 2020-0 Yes [id number] 20meq Take 1 [facility] tablet 9-17 tablet by ity of 00:00: mouth [place] 00 daily. Medical Branch KCL 20 mEq 2020-0 2020- No [id number] 20meq Take 1 [facility] tablet 9-17 01-08 tablet by ity of 00:00: 00:00 mouth [place] 00 :00 daily. Medical Branch venlafaxine 2019-2019- No 75mg Take 75 mg Univers 75 mg 02-04 by mouth 2 ity of tablet 20:50: 00:00 (two) [place] 43 :00 times Medical daily. Branch levothyroxi 2019-0 2020- No 50ug Take 50 [place] ne 50 mcg 02-04 mcg by ity of tablet 20:50: 00:00 mouth [place] 43 :00 every Medical morning. Branch tamsulosin 2019-0 2020- No Take by [place] 0.4 mg 24 02-04- mouth ity of hr capsule 20:50: 00:00 daily. [place] 43 :00 Medical Branch lisinopril 2019- No 2.5mg Take 2.5 U nivers 2.5 mg 02-04-16 mg by ity of tablet 20:50: 00:00 mouth [place] 43 :00 daily. Medical Branch magnesium 2020-0 2020- No 296mL 296 mL, Uni vers citrate 02-04- Oral, ity of solution 18:00: 17:26 ONCE, 1 [place] 296 mL 00 :00 dose, Mon Medical 02/05/20 at Branch 1300, Routine furosemide 2020-0 Yes 20mg 20 mg, IV [place] (LASIX) - Push, Q6H, ity of injection 17:00: First dose [place] 20 mg 00 (after Medical last Branch modificati on) on Mon02/05/20 at 1200, Until Discontinu ed, PIERRE KCL 2020-0 Yes 40meq 40 mEq, Univers (KLOR-CON -16 Oral, ity of M20) tablet 14:00: DAILY, [place] 40 mEq 00 First dose Medical on Mon [place] 02/05/20 at 0900, Until Discontinu ed, Routine aspirin 2020-0 Yes 81mg 81 mg, [facility] chewable -16 Oral, ity of tablet 81 14:00: DAILY, [place] mg 00 First dose Medical on Mon [place] 02/05/20 at 0900, Until Discontinu ed, Routine atorvastati 2020-0 Yes 40mg 40 mg, Univ ers n (LIPITOR) -16 Oral, QHS, it y of tablet 40 02:00: First dose [place] mg 00 on Mon [facility] 02/04/20 at Branch 2100, Until Discontinu ed, Routine apixaban 5 2019-0 Yes [id number] 5mg Take 1 Unive rs mg tablet -16 tablet by ity o f 00:00: mouth 2 [place] 00 (two) Medical times Branch daily. Indication s: atrial fibrillati on clopidogreL 2020-0 Yes [id number] 75mg Take 1 [facility] 75 mg 9-16 tablet by ity of tablet 00:00: mouth [place] 00 daily. Medical Branch nitroglycer 2019-[id number] 1 Univers in 0.4 mg 9-16 tablet ity of sublingual 00:00: under the [place] tablet 00 tongue Medical every 5 Branch (five) minutes as needed for Chest pain. pantoprazol 2020-0 Yes [id number] 20mg Take 1 U nivers e 20 mg EC 9-16 tablet by ity of tablet 00:00: mouth [place] 00 daily. Medical Branch lisinopriL 2020-0 Yes [id number] 2.5mg Take 1 Univers 2.5 mg 9-16 tablet by ity of tablet 00:00: mouth [place] 00 daily. Medical Branch levothyroxi 2020-0 Yes [id number] 50ug Take 1 Univers ne 50 mcg 9-16 tablet by ity o f tablet 00:00: mouth [place] 00 every Medical morning. Branch tamsulosin 2020-0 Yes [id number] .4mg Take 1 Univers 0.4 mg 24 9-16 capsule by ity of hr capsule 00:00: mouth [place] 00 daily. Medical Branch venlafaxine 2019-0 Yes [id number] 75mg Take 1 [facility] 75 mg 9-16 tablet by ity of tablet 00:00: mouth 2 [place] 00 (two) Medical times Branch daily. glipiZIDE 5 2019-0 Yes [id number] 5mg Take 1 [facility] mg tablet 9-16 tablet by ity o f 00:00: mouth 2 [place] 00 (two) Medical times Branch daily before breakfast and dinner. metoprolol 2020-0 Yes [id number] 25mg Take 1 [facility] succinate 9-16 tablet by ity o f XL 25 mg 24 00:00: mouth 2 [place] hr tablet 00 (two) Medical times Branch daily. furosemide 2020-0 Yes [id number] 40mg Take 1 [facility] 40 mg 9-16 tablet by ity of tablet 00:00: mouth [place] 00 every Medical morning Branch and evening. atorvastati 2020-0 Yes [id number] 40mg Take 1 U nivers n 40 mg 9-16 tablet by ity of tablet 00:00: mouth at [place] 00 bedtime. Medical Branch apixaban 5 2019-0 Yes [id number] 5mg Take 1 Unive rs mg tablet 9-16 tablet by ity o f 00:00: mouth 2 [place] 00 (two) Medical times Branch daily. Indication s: atrial fibrillati on clopidogreL 2019-0 Yes [id number] 75mg Take 1 [facility] 75 mg 9-16 tablet by ity of tablet 00:00: mouth [place] 00 daily. Medical Branch nitroglycer 2020-[id number] 1 [facility] in 0.4 mg 9-16 tablet ity of sublingual 00:00: under the [place] tablet 00 tongue Medical every 5 Branch (five) minutes as needed for Chest pain. pantoprazol 2020-0 Yes [id number] 20mg Take 1 U nivers e 20 mg EC 9-16 tablet by ity of tablet 00:00: mouth [place] 00 daily. Medical Branch lisinopriL 2020-0 Yes [id number] 2.5mg Take 1 Univers 2.5 mg 9-16 tablet by ity of tablet 00:00: mouth [place] 00 daily. Medical Branch levothyroxi 2020-0 Yes [id number] 50ug Take 1 [facility] ne 50 mcg 9-16 tablet by ity o f tablet 00:00: mouth [place] 00 every Medical morning. Branch tamsulosin 2019-0 Yes [id number] .4mg Take 1 [facility] 0.4 mg 24 9-16 capsule by ity of hr capsule 00:00: mouth [place] 00 daily. Medical Branch venlafaxine 2019-0 Yes [id number] 75mg Take 1 [facility] 75 mg 9-16 tablet by ity of tablet 00:00: mouth 2 (two) Medical times Branch daily. glipiZIDE 5 2019-0 Yes [id number] 5mg Take 1 [facility] mg tablet 9-16 tablet by ity o f 00:00: mouth 2 (two) Medical times Branch daily before breakfast and dinner. metoprolol 2020-0 Yes [id number] 25mg Take 1 [facility] succinate 9-16 tablet by ity o f XL 25 mg 24 00:00: mouth 2 [place] hr tablet 00 (two) Medical times Branch daily. furosemide 2020-0 Yes [id number] 40mg Take 1 [facility] 40 mg 9-16 tablet by ity of tablet 00:00: mouth [place] 00 every Medical morning Branch and evening. atorvastati 2020-0 Yes [id number] 40mg Take 1 U nivers n 40 mg 9-16 tablet by ity of tablet 00:00: mouth at [place] 00 bedtime. Medical Branch apixaban 5 2020-0 Yes [id number] 5mg Take 1 Unive rs mg tablet 9-16 tablet by ity o f 00:00: mouth 2 [place] (two) Medical times Branch daily. Indication s: atrial fibrillati on clopidogreL 2020-0 Yes [id number] 75mg Take 1 [facility] 75 mg 9-16 tablet by ity of tablet 00:00: mouth [place] 00 daily. Medical Branch nitroglycer 2020-[id number] 1 [facility] in 0.4 mg 9-16 tablet ity of sublingual 00:00: under the [place] tablet 00 tongue Medical every 5 Branch (five) minutes as needed for Chest pain. pantoprazol 2020-0 Yes [id number] 20mg Take 1 U nivers e 20 mg EC 9-16 tablet by ity of tablet 00:00: mouth [place] 00 daily. Medical Branch lisinopriL 2020-0 Yes [id number] 2.5mg Take 1 Univers 2.5 mg 9-16 tablet by ity of tablet 00:00: mouth [place] 00 daily. Medical Branch levothyroxi 2020-0 Yes [id number] 50ug Take 1 [facility] ne 50 mcg 9-16 tablet by ity o f tablet 00:00: mouth [place] 00 every Medical morning. Branch tamsulosin 2020-0 Yes [id number] .4mg Take 1 Univers 0.4 mg 24 9-16 capsule by ity of hr capsule 00:00: mouth [place] 00 daily. Medical Branch venlafaxine 2019-0 Yes [id number] 75mg Take 1 [facility] 75 mg 9-16 tablet by ity of tablet 00:00: mouth 2 [place] 00 (two) Medical times Branch daily. glipiZIDE 5 2020-0 Yes [id number] 5mg Take 1 [facility] mg tablet 9-16 tablet by ity o f 00:00: mouth 2 [place] 00 (two) Medical times Branch daily before breakfast and dinner. metoprolol 2020-0 Yes [id number] 25mg Take 1 [facility] succinate 9-16 tablet by ity o f XL 25 mg 24 00:00: mouth 2 [place] tablet 00 (two) Medical times Branch daily. furosemide 2020-0 Yes [id number] 40mg Take 1 [facility] 40 mg 9-16 tablet by ity of tablet 00:00: mouth [place] 00 every Medical morning Branch and evening. atorvastati 2020-0 Yes [id number] 40mg Take 1 U nivers n 40 mg 9-16 tablet by ity of tablet 00:00: mouth at [place] 00 bedtime. Medical Branch apixaban 5 2020-0 Yes [id number] 5mg Take 1 Unive rs mg tablet 9-16 tablet by ity o f 00:00: mouth 2 [place] 00 (two) Medical times Branch daily. Indication s: atrial fibrillati on clopidogreL 2020-0 Yes [id number] 75mg Take 1 [facility] 75 mg 9-16 tablet by ity of tablet 00:00: mouth [place] 00 daily. Medical Branch nitroglycer 2020-[id number] 1 [facility] in 0.4 mg 9-16 tablet ity of sublingual 00:00: under the [place] tablet 00 tongue Medical every 5 Branch (five) minutes as needed for Chest pain. pantoprazol 2020-0 Yes [id number] 20mg Take 1 U nivers e 20 mg EC 9-16 tablet by ity of tablet 00:00: mouth [place] 00 daily. Medical Branch lisinopriL 2020-0 Yes [id number] 2.5mg Take 1 Univers 2.5 mg 9-16 tablet by ity of tablet 00:00: mouth [place] 00 daily. Medical Branch levothyroxi 2020-0 Yes [id number] 50ug Take 1 Univers ne 50 mcg 9-16 tablet by ity o f tablet 00:00: mouth [place] 00 every Medical morning. Branch tamsulosin 2020-0 Yes [id number] .4mg Take 1 Univers 0.4 mg 24 9-16 capsule by ity of hr capsule 00:00: mouth [place] 00 daily. Medical Branch venlafaxine 2020-0 Yes [id number] 75mg Take 1 [facility] 75 mg 9-16 tablet by ity of tablet 00:00: mouth 2 [place] 00 (two) Medical times Branch daily. glipiZIDE 5 2020-0 Yes [id number] 5mg Take 1 [facility] mg tablet 9-16 tablet by ity o f 00:00: mouth 2 [place] 00 (two) Medical times Branch daily before breakfast and dinner. metoprolol 2020-0 Yes [id number] 25mg Take 1 [facility] succinate 9-16 tablet by ity o f XL 25 mg 24 00:00: mouth 2 [place] tablet 00 (two) Medical times Branch daily. furosemide 2020-0 Yes [id number] 40mg Take 1 [facility] 40 mg 9-16 tablet by ity of tablet 00:00: mouth [place] 00 every Medical morning Branch and evening. atorvastati 2020-0 Yes [id number] 40mg Take 1 U nivers n 40 mg 9-16 tablet by ity of tablet 00:00: mouth at [place] 00 bedtime. Medical Branch apixaban 5 2020-0 Yes [id number] 5mg Take 1 Unive rs mg tablet 9-16 tablet by ity o f 00:00: mouth 2 [place] 00 (two) Medical times Branch daily. Indication s: atrial fibrillati on clopidogreL 2020-0 Yes [id number] 75mg Take 1 [facility] 75 mg 9-16 tablet by ity of tablet 00:00: mouth [place] 00 daily. Medical Branch nitroglycer 2020-[id number] 1 [facility] in 0.4 mg 9-16 tablet ity of sublingual 00:00: under the [place] tablet 00 tongue Medical every 5 Branch (five) minutes as needed for Chest pain. pantoprazol 2020-0 Yes [id number] 20mg Take 1 U nivers e 20 mg EC 9-16 tablet by ity of tablet 00:00: mouth [place] 00 daily. Medical Branch lisinopriL 2020-0 Yes [id number] 2.5mg Take 1 Univers 2.5 mg 9-16 tablet by ity of tablet 00:00: mouth [place] 00 daily. Medical Branch levothyroxi 2020-0 Yes [id number] 50ug Take 1 Univers ne 50 mcg 9-16 tablet by ity o f tablet 00:00: mouth [place] 00 every Medical morning. Branch tamsulosin 2019-0 Yes [id number] .4mg Take 1 Univers 0.4 mg 24 9-16 capsule by ity of hr capsule 00:00: mouth [place] 00 daily. Medical Branch venlafaxine 2020-0 Yes [id number] 75mg Take 1 [facility] 75 mg 9-16 tablet by ity of tablet 00:00: mouth 2 [place] 00 (two) Medical times Branch daily. glipiZIDE 5 2020-0 Yes [id number] 5mg Take 1 [facility] mg tablet 9-16 tablet by ity o f 00:00: mouth 2 [place] 00 (two) Medical times Branch daily before breakfast and dinner. metoprolol 2020-0 Yes [id number] 25mg Take 1 [facility] succinate 9-16 tablet by ity o f XL 25 mg 24 00:00: mouth 2 [place] hr tablet 00 (two) Medical times Branch daily. furosemide 2020-0 Yes [id number] 40mg Take 1 [facility] 40 mg 9-16 tablet by ity of tablet 00:00: mouth [place] 00 every Medical morning Branch and evening. atorvastati 2020-0 Yes [id number] 40mg Take 1 U nivers n 40 mg 9-16 tablet by ity of tablet 00:00: mouth at [place] 00 bedtime. Medical Branch apixaban 5 2020-0 Yes [id number] 5mg Take 1 Unive rs mg tablet 9-16 tablet by ity o f 00:00: mouth 2 (two) Medical times Branch daily. Indication s: atrial fibrillati on clopidogreL 2020-0 Yes [id number] 75mg Take 1 [facility] 75 mg 9-16 tablet by ity of tablet 00:00: mouth [place] 00 daily. Medical Branch nitroglycer 2020-[id number] 1 [facility] in 0.4 mg 9-16 tablet ity of sublingual 00:00: under the [place] tablet 00 tongue Medical every 5 Branch (five) minutes as needed for Chest pain. pantoprazol 2020-0 Yes [id number] 20mg Take 1 U nivers e 20 mg EC 9-16 tablet by ity of tablet 00:00: mouth [place] 00 daily. Medical Branch lisinopriL 2019-0 Yes [id number] 2.5mg Take 1 [facility] 2.5 mg 9-16 tablet by ity of tablet 00:00: mouth [place] 00 daily. Medical Branch levothyroxi 2019-0 Yes [id number] 50ug Take 1 [facility] ne 50 mcg 9-16 tablet by ity o f tablet 00:00: mouth [place] 00 every Medical morning. Branch tamsulosin 2019-0 Yes [id number] .4mg Take 1 [facility] 0.4 mg 24 9-16 capsule by ity of hr capsule 00:00: mouth [place] 00 daily. Medical Branch venlafaxine 2019-0 Yes [id number] 75mg Take 1 [facility] 75 mg 9-16 tablet by ity of tablet 00:00: mouth 2 [place] 00 (two) Medical times Branch daily. glipiZIDE 5 2020-0 Yes [id number] 5mg Take 1 [facility] mg tablet 9-16 tablet by ity o f 00:00: mouth 2 [place] 00 (two) Medical times Branch daily before breakfast and dinner. metoprolol 2020-0 Yes [id number] 25mg Take 1 [facility] succinate 9-16 tablet by ity o f XL 25 mg 24 00:00: mouth 2 [place] tablet 00 (two) Medical times Branch daily. furosemide 2020-0 Yes [id number] 40mg Take 1 [facility] 40 mg 9-16 tablet by ity of tablet 00:00: mouth [place] 00 every Medical morning Branch and evening. atorvastati 2020-0 Yes [id number] 40mg Take 1 U nivers n 40 mg 9-16 tablet by ity of tablet 00:00: mouth at [place] 00 bedtime. Medical Branch apixaban 5 2020-0 Yes [id number] 5mg Take 1 Unive rs mg tablet 9-16 tablet by ity o f 00:00: mouth 2 [place] 00 (two) Medical times Branch daily. Indication s: atrial fibrillati on clopidogreL 2020-0 Yes [id number] 75mg Take 1 [facility] 75 mg 9-16 tablet by ity of tablet 00:00: mouth [place] 00 daily. Medical Branch nitroglycer 2020-[id number] 1 [facility] in 0.4 mg 9-16 tablet ity of sublingual 00:00: under the [place] tablet 00 tongue Medical every 5 Branch (five) minutes as needed for Chest pain. pantoprazol 2020-0 Yes [id number] 20mg Take 1 U nivers e 20 mg EC 9-16 tablet by ity of tablet 00:00: mouth [place] 00 daily. Medical Branch lisinopriL 2020-0 Yes [id number] 2.5mg Take 1 Univers 2.5 mg 9-16 tablet by ity of tablet 00:00: mouth [place] 00 daily. Medical Branch levothyroxi 2020-0 Yes [id number] 50ug Take 1 Univers ne 50 mcg 9-16 tablet by ity o f tablet 00:00: mouth [place] 00 every Medical morning. Branch tamsulosin 2019-0 Yes [id number] .4mg Take 1 Univers 0.4 mg 24 9-16 capsule by ity of hr capsule 00:00: mouth [place] 00 daily. Medical Branch venlafaxine 2020-0 Yes [id number] 75mg Take 1 [facility] 75 mg 9-16 tablet by ity of tablet 00:00: mouth 2 [place] 00 (two) Medical times Branch daily. glipiZIDE 5 2020-0 Yes [id number] 5mg Take 1 [facility] mg tablet 9-16 tablet by ity o f 00:00: mouth 2 [place] 00 (two) Medical times Branch daily before breakfast and dinner. metoprolol 2020-0 Yes [id number] 25mg Take 1 [facility] succinate 9-16 tablet by ity o f XL 25 mg 24 00:00: mouth 2 [place] tablet 00 (two) Medical times Branch daily. furosemide 2020-0 Yes [id number] 40mg Take 1 [facility] 40 mg 9-16 tablet by ity of tablet 00:00: mouth [place] 00 every Medical morning Branch and evening. atorvastati 2020-0 Yes [id number] 40mg Take 1 U nivers n 40 mg 9-16 tablet by ity of tablet 00:00: mouth at [place] 00 bedtime. Medical Branch apixaban 5 2019-0 Yes [id number] 5mg Take 1 Unive rs mg tablet 9-16 tablet by ity o f 00:00: mouth 2 [place] 00 (two) Medical times Branch daily. Indication s: atrial fibrillati on clopidogreL 2020-0 Yes [id number] 75mg Take 1 [facility] 75 mg 9-16 tablet by ity of tablet 00:00: mouth [place] 00 daily. Medical Branch nitroglycer 2019-[id number] 1 [facility] in 0.4 mg 9-16 tablet ity of sublingual 00:00: under the [place] tablet 00 tongue Medical every 5 Branch (five) minutes as needed for Chest pain. pantoprazol 2019-0 Yes [id number] 20mg Take 1 U nivers e 20 mg EC 9-16 tablet by ity of tablet 00:00: mouth [place] 00 daily. Medical Branch lisinopriL 2019-0 Yes [id number] 2.5mg Take 1 [facility] 2.5 mg 9-16 tablet by ity of tablet 00:00: mouth [place] 00 daily. Medical Branch levothyroxi 2019-0 Yes [id number] 50ug Take 1 Univers ne 50 mcg 9-16 tablet by ity o f tablet 00:00: mouth [place] 00 every Medical morning. Branch tamsulosin 2019-0 Yes [id number] .4mg Take 1 [facility] 0.4 mg 24 9-16 capsule by ity of hr capsule 00:00: mouth [place] 00 daily. Medical Branch venlafaxine 2020-0 Yes [id number] 75mg Take 1 [facility] 75 mg 9-16 tablet by ity of tablet 00:00: mouth 2 [place] 00 (two) Medical times Branch daily. glipiZIDE 5 2019-0 Yes [id number] 5mg Take 1 [facility] mg tablet 9-16 tablet by ity o f 00:00: mouth 2 [place] 00 (two) Medical times Branch daily before breakfast and dinner. metoprolol 2020-0 Yes [id number] 25mg Take 1 [facility] succinate 9-16 tablet by ity o f XL 25 mg 24 00:00: mouth 2 [place] tablet 00 (two) Medical times Branch daily. furosemide 2020-0 Yes [id number] 40mg Take 1 [facility] 40 mg 9-16 tablet by ity of tablet 00:00: mouth [place] 00 every Medical morning Branch and evening. atorvastati 2020-0 Yes [id number] 40mg Take 1 U nivers n 40 mg 9-16 tablet by ity of tablet 00:00: mouth at [place] 00 bedtime. Medical Branch apixaban 5 2019-0 Yes [id number] 5mg Take 1 Unive rs mg tablet 9-16 tablet by ity o f 00:00: mouth 2 [place] 00 (two) Medical times Branch daily. Indication s: atrial fibrillati on clopidogreL 2019-0 Yes [id number] 75mg Take 1 [facility] 75 mg 9-16 tablet by ity of tablet 00:00: mouth [place] 00 daily. Medical Branch nitroglycer 2019-[id number] 1 [facility] in 0.4 mg 9-16 tablet ity of sublingual 00:00: under the [place] tablet 00 tongue Medical every 5 Branch (five) minutes as needed for Chest pain. pantoprazol 2019-0 Yes [id number] 20mg Take 1 U nivers e 20 mg EC 9-16 tablet by ity of tablet 00:00: mouth [place] 00 daily. Medical Branch lisinopriL 2019-0 Yes [id number] 2.5mg Take 1 [facility] 2.5 mg 9-16 tablet by ity of tablet 00:00: mouth [place] 00 daily. Medical Branch levothyroxi 2020-0 Yes [id number] 50ug Take 1 [facility] ne 50 mcg 9-16 tablet by ity o f tablet 00:00: mouth [place] 00 every Medical morning. Branch tamsulosin 2020-0 Yes [id number] .4mg Take 1 [facility] 0.4 mg 24 9-16 capsule by ity of hr capsule 00:00: mouth [place] 00 daily. Medical Branch venlafaxine 2020-0 Yes [id number] 75mg Take 1 [facility] 75 mg 9-16 tablet by ity of tablet 00:00: mouth 2 [place] 00 (two) Medical times Branch daily. glipiZIDE 5 2019-0 Yes [id number] 5mg Take 1 [facility] mg tablet 9-16 tablet by ity o f 00:00: mouth 2 00 (two) Medical times Branch daily before breakfast and dinner. metoprolol 2020-0 Yes [id number] 25mg Take 1 [facility] succinate 9-16 tablet by ity o f XL 25 mg 24 00:00: mouth 2 [place] hr tablet 00 (two) Medical times Branch daily. furosemide 2020-0 Yes [id number] 40mg Take 1 [facility] 40 mg 9-16 tablet by ity of tablet 00:00: mouth [place] 00 every Medical morning Branch and evening. atorvastati 2020-0 Yes [id number] 40mg Take 1 [facility] n[facility] n 40 mg 9-16 tablet by ity of tablet 00:00: mouth at [place] 00 bedtime. Medical Branch apixaban 5 2020-0 Yes [id number] 5mg Take 1 [facility] rs mg tablet 9-16 tablet by ity o f 00:00: mouth 2 (two) Medical times Branch daily. Indication s: atrial fibrillati on clopidogreL 2020-0 Yes [id number] 75mg Take 1 [facility] 75 mg 9-16 tablet by ity of tablet 00:00: mouth [place] 00 daily. Medical Branch nitroglycer 2020-[id number] 1 [facility] in 0.4 mg 9-16 tablet ity of sublingual 00:00: under the [place] tablet 00 tongue Medical every 5 Branch (five) minutes as needed for Chest pain. pantoprazol 2020-0 Yes [id number] 20mg Take 1 U nivers e 20 mg EC 9-16 tablet by ity of tablet 00:00: mouth [place] 00 daily. Medical Branch lisinopriL 2020-0 Yes [id number] 2.5mg Take 1 [facility] 2.5 mg 9-16 tablet by ity of tablet 00:00: mouth [place] 00 daily. Medical Branch levothyroxi 2020-0 Yes [id number] 50ug Take 1 [facility] ne 50 mcg 9-16 tablet by ity o f tablet 00:00: mouth [place] 00 every Medical morning. Branch tamsulosin 2020-0 Yes [id number] .4mg Take 1 [facility] 0.4 mg 24 9-16 capsule by ity of hr capsule 00:00: mouth [place] 00 daily. Medical Branch venlafaxine 2020-0 Yes [id number] 75mg Take 1 [facility] 75 mg 9-16 tablet by ity of tablet 00:00: mouth 2 [place] 00 (two) Medical times Branch daily. glipiZIDE 5 2020-0 Yes [id number] 5mg Take 1 [facility] mg tablet 9-16 tablet by ity o f 00:00: mouth 2 (two) Medical times Branch daily before breakfast and dinner. metoprolol 2020-0 Yes [id number] 25mg Take 1 [facility] succinate 9-16 tablet by ity o f XL 25 mg 24 00:00: mouth 2 [place] tablet 00 (two) Medical times Branch daily. furosemide 2020-0 Yes [id number] 40mg Take 1 [facility] 40 mg 9-16 tablet by ity of tablet 00:00: mouth [place] 00 every Medical morning Branch and evening. atorvastati 2020-0 Yes [id number] 40mg Take 1 [facility] n[facility] n 40 mg 9-16 tablet by ity of tablet 00:00: mouth at [place] 00 bedtime. Medical Branch apixaban 5 2019-0 Yes [id number] 5mg Take 1 [facility] mg tablet 9-16 tablet by ity o f 00:00: mouth 2 (two) Medical times Branch daily. Indication s: atrial fibrillati on clopidogreL 2020-0 Yes [id number] 75mg Take 1 [facility] 75 mg 9-16 tablet by ity of tablet 00:00: mouth [place] 00 daily. Medical Branch nitroglycer 2020-[id number] 1 [facility] in 0.4 mg 9-16 tablet ity of sublingual 00:00: under the [place] tablet 00 tongue Medical every 5 Branch (five) minutes as needed for Chest pain. pantoprazol 2020-0 Yes [id number] 20mg Take 1 [facility] nivers e 20 mg EC 9-16 tablet by ity of tablet 00:00: mouth [place] 00 daily. Medical Branch lisinopriL 2020-0 Yes [id number] 2.5mg Take 1 [facility] 2.5 mg 9-16 tablet by ity of tablet 00:00: mouth [place] 00 daily. Medical Branch levothyroxi 2020-0 Yes [id number] 50ug Take 1 [facility] ne 50 mcg 9-16 tablet by ity o f tablet 00:00: mouth [place] 00 every Medical morning. Branch tamsulosin 2020-0 Yes [id number] .4mg Take 1 [facility] 0.4 mg 24 9-16 capsule by ity of hr capsule 00:00: mouth [place] 00 daily. Medical Branch venlafaxine 2019-0 Yes [id number] 75mg Take 1 [facility] 75 mg 9-16 tablet by ity of tablet 00:00: mouth 2 [place] 00 (two) Medical times Branch daily. glipiZIDE 5 2020-0 Yes [id number] 5mg Take 1 [facility] mg tablet 9-16 tablet by ity o f 00:00: mouth 2 [place] 00 (two) Medical times Branch daily before breakfast and dinner. metoprolol 2020-0 Yes [id number] 25mg Take 1 [facility] succinate 9-16 tablet by ity o f XL 25 mg 24 00:00: mouth 2 [place] tablet 00 (two) Medical times Branch daily. furosemide 2020-0 Yes [id number] 40mg Take 1 [facility] 40 mg 9-16 tablet by ity of tablet 00:00: mouth [place] 00 every Medical morning Branch and evening. atorvastati 2020-0 Yes [id number] 40mg Take 1 [facility] nivers n 40 mg 9-16 tablet by ity of tablet 00:00: mouth at [place] 00 bedtime. Medical Branch clopidogreL 2020-0 Yes [id number] 75mg Take 1 [facility] 75 mg 9-16 tablet by ity of tablet 00:00: mouth [place] 00 daily. Medical Branch nitroglycer 2020-[id number] 1 [facility] in 0.4 mg 9-16 tablet ity of sublingual 00:00: under the [place] tablet 00 tongue Medical every 5 Branch (five) minutes as needed for Chest pain. levothyroxi 2020-0 Yes [id number] 50ug Take 1 [facility] ne 50 mcg 9-16 tablet by ity o f tablet 00:00: mouth [place] 00 every Medical morning. Branch tamsulosin 2020-0 Yes [id number] .4mg Take 1 [facility] 0.4 mg 24 9-16 capsule by ity of hr capsule 00:00: mouth [place] 00 daily. Medical Branch venlafaxine 2020-0 Yes [id number] 75mg Take 1 [facility] 75 mg 9-16 tablet by ity of tablet 00:00: mouth 2 [place] 00 (two) Medical times Branch daily. glipiZIDE 5 2020-0 Yes [id number] 5mg Take 1 [facility] mg tablet 9-16 tablet by ity o f 00:00: mouth 2 [place] 00 (two) Medical times Branch daily before breakfast and dinner. furosemide 2020-0 Yes [id number] 40mg Take 1 [facility] 40 mg 9-16 tablet by ity of tablet 00:00: mouth [place] 00 every Medical morning Branch and evening. clopidogreL 2020-0 Yes [id number] 75mg Take 1 [facility] 75 mg 9-16 tablet by ity of tablet 00:00: mouth [place] 00 daily. Medical Branch nitroglycer 2020-[id number] 1 [facility] in 0.4 mg 9-16 tablet ity of sublingual 00:00: under the [place] tablet 00 tongue Medical every 5 Branch (five) minutes as needed for Chest pain. levothyroxi 2020-0 Yes [id number] 50ug Take 1 [facility] ne 50 mcg 9-16 tablet by ity o f tablet 00:00: mouth [place] 00 every Medical morning. Branch tamsulosin 2020-0 Yes [id number] .4mg Take 1 [facility] 0.4 mg 24 9-16 capsule by ity of hr capsule 00:00: mouth [place] 00 daily. Medical Branch venlafaxine 2020-0 Yes [id number] 75mg Take 1 [facility] 75 mg 9-16 tablet by ity of tablet 00:00: mouth 2 [place] 00 (two) Medical times Branch daily. glipiZIDE 5 2020-0 Yes [id number] 5mg Take 1 [facility] mg tablet 9-16 tablet by ity o f 00:00: mouth 2 [place] 00 (two) Medical times Branch daily before breakfast and dinner. furosemide 2020-0 Yes [id number] 40mg Take 1 [facility] 40 mg 9-16 tablet by ity of tablet 00:00: mouth [place] 00 every Medical morning Branch and evening. clopidogreL 2020-0 Yes [id number] 75mg Take 1 [facility] 75 mg 9-16 tablet by ity of tablet 00:00: mouth [place] 00 daily. Medical Branch nitroglycer 2020-[id number] 1 [facility] in 0.4 mg 9-16 tablet ity of sublingual 00:00: under the [place] tablet 00 tongue Medical every 5 Branch (five) minutes as needed for Chest pain. levothyroxi 2020-0 Yes [id number] 50ug Take 1 [facility] ne 50 mcg 9-16 tablet by ity o f tablet 00:00: mouth [place] 00 every Medical morning. Branch tamsulosin 2020-0 Yes [id number] .4mg Take 1 [facility] 0.4 mg 24 9-16 capsule by ity of hr capsule 00:00: mouth [place] 00 daily. Medical Branch venlafaxine 2020-0 Yes [id number] 75mg Take 1 [facility] 75 mg 9-16 tablet by ity of tablet 00:00: mouth (two) Medical times Branch daily. glipiZIDE 5 2020-0 Yes [id number] 5mg Take 1 [facility] mg tablet 9-16 tablet by ity o f 00:00: mouth (two) Medical times Branch daily before breakfast and dinner. furosemide 2020-0 Yes [id number] 40mg Take 1 [facility] 40 mg 9-16 tablet by ity of tablet 00:00: mouth [place] 00 every Medical morning Branch and evening. clopidogreL 2020-0 Yes [id number] 75mg Take 1 [facility] 75 mg 9-16 tablet by ity of tablet 00:00: mouth [place] 00 daily. Medical Branch nitroglycer 2020-[id number] 1 [facility] in 0.4 mg 9-16 tablet ity of sublingual 00:00: under the [place] tablet 00 tongue Medical every 5 Branch (five) minutes as needed for Chest pain. levothyroxi 2020-0 Yes [id number] 50ug Take 1 [facility] ne 50 mcg 9-16 tablet by ity o f tablet 00:00: mouth [place] 00 every Medical morning. Branch tamsulosin 2020-0 Yes [id number] .4mg Take 1 [facility] 0.4 mg 24 9-16 capsule by ity of hr capsule 00:00: mouth [place] 00 daily. Medical Branch venlafaxine 2020-0 Yes [id number] 75mg Take 1 [facility] 75 mg 9-16 tablet by ity of tablet 00:00: mouth (two) Medical times Branch daily. glipiZIDE 5 2020-0 Yes [id number] 5mg Take 1 [facility] mg tablet 9-16 tablet by ity o f 00:00: mouth (two) Medical times Branch daily before breakfast and dinner. furosemide 2020-0 Yes [id number] 40mg Take 1 [facility] 40 mg 9-16 tablet by ity of tablet 00:00: mouth [place] 00 every Medical morning Branch and evening. clopidogreL 2020-0 Yes [id number] 75mg Take 1 [facility] 75 mg 9-16 tablet by ity of tablet 00:00: mouth [place] 00 daily. Medical Branch nitroglycer 2020-[id number] 1 [facility] in 0.4 mg 9-16 tablet ity of sublingual 00:00: under the [place] tablet 00 tongue Medical every 5 Branch (five) minutes as needed for Chest pain. levothyroxi 2020-0 Yes [id number] 50ug Take 1 [facility] ne 50 mcg 9-16 tablet by ity o f tablet 00:00: mouth [place] 00 every Medical morning. Branch tamsulosin 2020-0 Yes [id number] .4mg Take 1 [facility] 0.4 mg 24 9-16 capsule by ity of hr capsule 00:00: mouth [place] 00 daily. Medical Branch venlafaxine 2020-0 Yes [id number] 75mg Take 1 [facility] 75 mg 9-16 tablet by ity of tablet 00:00: mouth (two) Medical times Branch daily. glipiZIDE 5 2020-0 Yes [id number] 5mg Take 1 [facility] mg tablet 9-16 tablet by ity o f 00:00: mouth (two) Medical times Branch daily before breakfast and dinner. furosemide 2020-0 Yes [id number] 40mg Take 1 [facility] 40 mg 9-16 tablet by ity of tablet 00:00: mouth 00 every Medical morning Branch and evening. nitroglycer 2020-[id number] 1 [facility] in 0.4 mg 9-16 tablet ity of sublingual 00:00: under the [place] tablet 00 tongue Medical every 5 Branch (five) minutes as needed for Chest pain. levothyroxi 2020-0 Yes [id number] 50ug Take 1 [facility] ne 50 mcg 9-16 tablet by ity o f tablet 00:00: mouth 00 every Medical morning. Branch tamsulosin 2020-0 Yes [id number] .4mg Take 1 [facility] 0.4 mg 24 9-16 capsule by ity of hr capsule 00:00: mouth 00 daily. Medical Branch venlafaxine 2020-0 Yes [id number] 75mg Take 1 [facility] 75 mg 9-16 tablet by ity of tablet 00:00: mouth (two) Medical times Branch daily. glipiZIDE 5 2020-0 Yes [id number] 5mg Take 1 [facility] mg tablet 9-16 tablet by ity o f 00:00: mouth 2 (two) Medical times Branch daily before breakfast and dinner. furosemide 2020-0 Yes [id number] 40mg Take 1 [facility] 40 mg 9-16 tablet by ity of tablet 00:00: mouth [place] 00 every Medical morning Branch and evening. nitroglycer 2020-[id number] 1 [facility] in 0.4 mg 9-16 tablet ity of sublingual 00:00: under the [place] tablet 00 tongue Medical every 5 Branch (five) minutes as needed for Chest pain. levothyroxi 2020-0 Yes [id number] 50ug Take 1 [facility] ne 50 mcg 9-16 tablet by ity o f tablet 00:00: mouth [place] 00 every Medical morning. Branch tamsulosin 2020-0 Yes [id number] .4mg Take 1 [facility] 0.4 mg 24 9-16 capsule by ity of hr capsule 00:00: mouth [place] 00 daily. Medical Branch venlafaxine 2020-0 Yes [id number] 75mg Take 1 [facility] 75 mg 9-16 tablet by ity of tablet 00:00: mouth 2 00 (two) Medical times Branch daily. glipiZIDE 5 2020-0 Yes [id number] 5mg Take 1 [facility] mg tablet 9-16 tablet by ity o f 00:00: mouth 2 (two) Medical times Branch daily before breakfast and dinner. furosemide 2020-0 Yes [id number] 40mg Take 1 [facility] 40 mg 9-16 tablet by ity of tablet 00:00: mouth [place] 00 every Medical morning Branch and evening. levothyroxi 2020-0 Yes [id number] 50ug Take 1 [facility] ne 50 mcg 9-16 tablet by ity o f tablet 00:00: mouth [place] 00 every Medical morning. Branch tamsulosin 2020-0 Yes [id number] .4mg Take 1 [facility] 0.4 mg 24 9-16 capsule by ity of hr capsule 00:00: mouth [place] 00 daily. Medical Branch venlafaxine 2020-0 Yes [id number] 75mg Take 1 [facility] 75 mg 9-16 tablet by ity of tablet 00:00: mouth 2 [place] (two) Medical times Branch daily. glipiZIDE 5 2020-0 Yes [id number] 5mg Take 1 [facility] mg tablet 9-16 tablet by ity o f 00:00: mouth 2 [place] 00 (two) Medical times Branch daily before breakfast and dinner. furosemide 2020-0 Yes [id number] 40mg Take 1 [facility] 40 mg 9-16 tablet by ity of tablet 00:00: mouth [place] 00 every Medical morning Branch and evening. levothyroxi 2020-0 Yes [id number] 50ug Take 1 [facility] ne 50 mcg 9-16 tablet by ity o f tablet 00:00: mouth [place] 00 every Medical morning. Branch venlafaxine 2020-0 Yes [id number] 75mg Take 1 [facility] 75 mg 9-16 tablet by ity of tablet 00:00: mouth 2 00 (two) Medical times Branch daily. glipiZIDE 5 2020-0 Yes [id number] 5mg Take 1 [facility] mg tablet 9-16 tablet by ity o f 00:00: mouth 2 (two) Medical times Branch daily before breakfast and dinner. furosemide 2020-0 Yes [id number] 40mg Take 1 [facility] 40 mg 9-16 tablet by ity of tablet 00:00: mouth [place] 00 every Medical morning Branch and evening. levothyroxi 2020-0 Yes [id number] 50ug Take 1 [facility] ne 50 mcg 9-16 tablet by ity o f tablet 00:00: mouth [place] 00 every Medical morning. Branch venlafaxine 2020-0 Yes [id number] 75mg Take 1 [facility] 75 mg 9-16 tablet by ity of tablet 00:00: mouth (two) Medical times Branch daily. glipiZIDE 5 2020-0 Yes [id number] 5mg Take 1 [facility] mg tablet 9-16 tablet by ity o f 00:00: mouth (two) Medical times Branch daily before breakfast and dinner. furosemide 2020-0 Yes [id number] 40mg Take 1 [facility] 40 mg 9-16 tablet by ity of tablet 00:00: mouth [place] 00 every Medical morning Branch and evening. levothyroxi 2020-0 Yes [id number] 50ug Take 1 [facility] ne 50 mcg 9-16 tablet by ity o f tablet 00:00: mouth [place] 00 every Medical morning. Branch venlafaxine 2020-0 Yes [id number] 75mg Take 1 [facility] 75 mg 9-16 tablet by ity of tablet 00:00: mouth 2 (two) Medical times Branch daily. glipiZIDE 5 2020-0 Yes [id number] 5mg Take 1 [facility] mg tablet 9-16 tablet by ity o f 00:00: mouth 2 (two) Medical times Branch daily before breakfast and dinner. furosemide 2020-0 Yes [id number] 40mg Take 1 [facility] 40 mg 9-16 tablet by ity of tablet 00:00: mouth 00 every Medical morning Branch and evening. levothyroxi 2020-0 Yes [id number] 50ug Take 1 [facility] ne 50 mcg 9-16 tablet by ity o f tablet 00:00: mouth [place] 00 every Medical morning. Branch venlafaxine 2020-0 Yes [id number] 75mg Take 1 [facility] 75 mg 9-16 tablet by ity of tablet 00:00: mouth (two) Medical times Branch daily. glipiZIDE 5 2020-0 Yes [id number] 5mg Take 1 [facility] mg tablet 9-16 tablet by ity o f 00:00: mouth ([facility]) Medical times Branch daily before breakfast and dinner. furosemide 2020-0 Yes [id number] 40mg Take 1 [facility] 40 mg 9-16 tablet by ity of tablet 00:00: mouth 00 every Medical morning Branch and evening. levothyroxi 2020-0 Yes [id number] 50ug Take 1 [facility] ne 50 mcg 9-16 tablet by ity o f tablet 00:00: mouth 00 every Medical morning. Branch venlafaxine 2020-0 Yes [id number] 75mg Take 1 [facility] 75 mg 9-16 tablet by ity of tablet 00:00: mouth (two) Medical times Branch daily. glipiZIDE 5 2020-0 Yes [id number] 5mg Take 1 [facility] mg tablet 9-16 tablet by ity o f 00:00: mouth (two) Medical times Branch daily before breakfast and dinner. furosemide 2020-0 Yes [id number] 40mg Take 1 [facility] 40 mg 9-16 tablet by ity of tablet 00:00: mouth [place] 00 every Medical morning Branch and evening. levothyroxi 2020-0 Yes [id number] 50ug Take 1 [facility] ne 50 mcg 9-16 tablet by ity o f tablet 00:00: mouth [place] 00 every Medical morning. Branch venlafaxine 2020-0 Yes [id number] 75mg Take 1 [facility] 75 mg 9-16 tablet by ity of tablet 00:00: mouth (two) Medical times Branch daily. glipiZIDE 5 2020-0 Yes [id number] 5mg Take 1 [facility] mg tablet 9-16 tablet by ity o f 00:00: mouth 2 [place] 00 (two) Medical times Branch daily before breakfast and dinner. furosemide 2020-0 Yes [id number] 40mg Take 1 [facility] 40 mg 9-16 tablet by ity of tablet 00:00: mouth [place] 00 every Medical morning Branch and evening. levothyroxi 2019-2020- No [id number] 50ug Take 1 [facility] ne 50 mcg 02-04-08 tablet by ity of tablet 00:00: 00:00 mouth [place] 00 :00 every Medical morning. Branch venlafaxine 2020- No [id number] 75mg Take 1 [facility] 75 mg 02-04-08 tablet by ity of tablet 00:00: 00:00 mouth 2 [place] 00 :00 (two) Medical times Branch daily. glipiZIDE 5 2020- No [id number] 5mg Take 1 [facility] mg tablet 02-04-08 tablet by ity of 00:00: 00:00 mouth 2 [place] 00 :00 (two) Medical times Branch daily before breakfast and dinner. furosemide 2020- No [id number] 40mg Take 1 [facility] 40 mg 02-04-08 tablet by ity of tablet 00:00: 00:00 mouth [place] 00 :00 every Medical morning Branch and evening. tamsulosin 2020- No [id number] .4mg Take 1 [facility] 0.4 mg 24 02-04- capsule by ity of hr capsule 00:00: 00:00 mouth [place] 00 :00 daily. Medical Branch tamsulosin 2020- No [id number] .4mg Take 1 [facility] 0.4 mg 24 02-04- capsule by ity of hr capsule 00:00: 00:00 mouth [place] 00 :00 daily. Medical Branch tamsulosin 2020- No [id number] .4mg Take 1 [facility] 0.4 mg 24 02-04- capsule by ity of hr capsule 00:00: 00:00 mouth [place] 00 :00 daily. Medical Branch tamsulosin 2020- No [id number] .4mg Take 1 [facility] 0.4 mg 24 02-04- capsule by ity of hr capsule 00:00: 00:00 mouth [place] 00 :00 daily. Medical Branch nitroglycer 2020- No [id number] .4mg Place 1 [facility] in 0.4 mg 02-04 tablet ity of sublingual 00:00: 00:00 under the [place] tablet 00 :00 tongue Medical every 5 Branch (five) minutes as needed for Chest pain. clopidogreL 2020- No [id number] 75mg Take 1 [facility] 75 mg 02-04 tablet by ity of tablet 00:00: 00:00 mouth [place] 00 :00 daily. Medical Branch lisinopriL 2020- No [id number] 2.5mg Take 1 [facility] 2.5 mg 02-04 tablet by ity of tablet 00:00: 00:00 mouth [place] 00 :00 daily. Medical Branch apixaban 5 2020- No [id number] 5mg Take 1 Univ ers mg tablet 02-04 tablet by ity of 00:00: 00:00 mouth 2 [place] 00 :00 (two) Medical times Branch daily. Indication s: atrial fibrillati on pantoprazol 2020- No [id number] 20mg Take 1 [facility] e 20 mg EC 02-04 tablet by ity of tablet 00:00: 00:00 mouth [place] 00 :00 daily. Medical Branch metoprolol 2020- No [id number] 25mg Take 1 [facility] succinate 02-04 tablet by ity of XL 25 mg 24 00:00: 00:00 mouth 2 [place] hr tablet 00 :00 (two) Medical times Branch daily. atorvastati 2020- No [id number] 40mg Take 1 [facility] n 40 mg 02-04 tablet by ity of tablet 00:00: 00:00 mouth at [place] 00 :00 bedtime. Medical Branch atorvastati 2019- No [id number] 80mg Take 2 [facility] n 40 mg 02-04 tablets by ity o f tablet 00:00: 00:00 mouth at [place] 00 :00 bedtime. Medical Branch sulfur 2019- No 5mL 5 mL, [facility] hexafluorid 02-03 Intravenou i ty of e microsphr 21:30: 20:12 s, ONCE, 1 [place] (LUMASON) 00 :00 dose, Tue Medic al injection 5 02/04/20 at Br anch mL 1630, Routine
membership advisor approving Restricted medication : NINFA CASTILLO mupirocin 2020-0 Yes Univers (BACTROBAN 9-15 ity of OINT) 2 % 18:00: [place] skin 00 Medical ointment Branch morpHINE 2020-0 Yes 4mg 4 mg, Slow Uni vers injection 4 -15 IV Push, ity of mg 17:32: Q4HPRN, [place] 30 Starting Medical [facility] 02/04/20 at 1232, Until Discontinu ed, STAT, Pain (scale 7-10) enoxaparin 2020-0 Yes 80mg 80 mg, Unive rs (LOVENOX) 9-15 Subcutaneo ity of injection 16:15: us, Q12H, [place] 80 mg 00 First dose Medical on [facility] 02/04/20 at 1115, Until Discontinu ed, Routine tamsulosin 2020-0 Yes .4mg 0.4 mg, Univ ers (FLOMAX) 9-15 Oral, ity of capsule 0.4 14:00: DAILY, [place] mg 00 First dose Medical on [facility] 02/04/20 at 0900, Until Discontinu ed, Routine lisinopriL 2020-0 Yes 2.5mg 2.5 mg, Uni vers (PRINIVIL,Z 9-15 Oral, ity of ESTRIL) 14:00: DAILY, [place] tablet 2.5 00 First dose Med ical mg on [facility] 02/04/20 at 0900, Until Discontinu ed, Routine levothyroxi 2020-0 Yes 50ug 50 mcg, Uni vers ne 9-15 Oral, ity of (SYNTHROID) 11:00: QAM-0600, [place] tablet 50 00 First dose Medi uriel mcg on [facility] 02/04/20 at 0600, Until Discontinu ed, Routine venlafaxine 2020-0 Yes 75mg 75 mg, Univ ers XR (EFFEXOR 9-15 Oral, BID, it y of XR) 24 hr 07:15: First dose [place] capsule 75 00 on [facility] mg 02/04/20 at Branch 0215, Until Discontinu ed, Routine aspirin 2020-0 2020- No 325mg 325 mg, Unive rs tablet 325 9-15 09-15 Oral, ity of mg 07:00: 06:26 ONCE, 1 [place] 00 :00 dose, [facility] 02/04/20 at Branch 0200, PIERRE glipiZIDE 2020-0 Yes 5mg 5 mg, Univers (GLUCOTROL) 02-03 Oral, ity of tablet 5 mg 06:00: BIDAC, [place] 00 First dose Medical on [facility] 02/04/20 at 0100, Until Discontinu ed, Routine metoprolol 2020-0 Yes 25mg 25 mg, Unive rs succinate 02-03 Oral, BID, ity of XL (TOPROL 06:00: First dose [place] XL) tablet 00 on [facility] 25 mg 02/04/20 at Branch 0100, Until Discontinu ed, Routine dicyclomine 2020-0 2020- No 20mg 20 mg, Uni vers (BENTYL) 02-0318 Oral, TID, ity of tablet 20 06:00: 00:59 9 doses, [place] mg 00 :00 First dose Medical on [facility] 02/04/20 at 0100, Last dose on [facility] 02/06/20 at 1400, Routine furosemide 2020-0 2020- No 20mg 20 mg, IV U nivers (LASIX) 02-03 Push, Q6H, ity o f injection 06:00: 09:32 First dose [place] 20 mg 00 :46 on [facility] 02/04/20 at Branch 0100, Until Discontinu ed, PIERRE traMADoL 2020-0 Yes 50mg 50 mg, Univers (ULTRAM) 02-03 Oral, ity of tablet 50 05:49: Q8HPRN, [place] mg 02 Starting Medical [facility] 02/04/20 at 0049, Until Discontinu ed, Routine, Pain (scale 4-6) sennosides 2020-0 Yes 8.6mg 8.6 mg, Uni vers (SENOKOT) 02-03 Oral, BID, ity of tablet 8.6 05:45: First dose [place] mg 00 on [facility] 02/04/20 at Branch 0045, Until Discontinu ed, Routine docusate 2020-0 Yes 100mg 100 mg, Unive rs (COLACE) 02-03 Oral, BID, ity o f capsule 100 05:45: First dose [place] mg 00 on [facility] Medical 02/04/20 at Branch 0045, Until Discontinu ed, Routine Sliding 2020-0 Yes Subcutaneo Univ ers Scale -15 us, TID ity of Insulin - 05:45: MEALS+HS, [place] Aspart 00 First dose Medical (NOVOLOG) + on [facility] Branch [facility] 02/04/20 at Testing 0045, Until Discontinu ed, Routine ondansetron 2019-0 Yes 4mg 4 mg, Slow Univers (ZOFRAN 02-03 IV Push, ity of (PF)) 05:44: Q6HPRN, [place] injection 4 18 Starting Medi uriel mg [facility] Branch 02/04/20 at 0044, Until Discontinu ed, Routine, Nausea and Vomiting (N/V) glucagon 2019-0 Yes 1mg 1 mg, Univers (GLUCAGEN 02-03 Intramuscu ity of DIAGNOSTIC 05:42: lar, PRN, [place] KIT) 16 Starting Medical injection 1 Branch mg 02/04/20 at 0042, Until Discontinu ed, PIERRE, Blood Glucose < or = 70 mg/dL and patient is unable to swallow or has mental changes. dextrose 50 2020-0 Yes 25mL 25 mL, Univ ers % in water 02-03 Slow IV ity of (D50W) 05:42: Push, PRN, [place] injection 16 Starting Medica l 25 mL [facility] 02/04/20 at 0042, Until Discontinu ed, PIERRE, Blood Glucose < or = 70 mg/dL and patient is unable to swallow or has mental status changes. morpHINE 2019-0 2020- No 4mg 4 mg, Slow Un [place] injection 4 02-03 IV Push, ity of mg 01:30: 00:41 ONCE, 1 [place] 00 :00 dose, Mon Medical 02/03/20 at Branch 2030, STAT ondansetron 2020-0 2020- No 4mg 4 mg, Slow Univers (ZOFRAN 02-03 IV Push, ity of (PF)) 00:30: 23:36 ONCE, 1 [place] injection 4 00 :00 dose, Mon Med ical mg 02/03/20 at Branch 1930, PIERRE morpHINE 2020-0 2020- No 4mg 4 mg, Slow Un [place] injection 4 02-03 IV Push, ity of mg 00:30: 23:33 ONCE, 1 [place] 00 :00 dose, Mon Medical 02/03/20 at [place] 1930, STAT iohexol 2019-0 2020- No 120mL 120 mL, Unive rs (OMNIPAQUE 02-02 Intravenou it y of 350 23:45: 23:19 s, ONCE, 1 [place] BULK-100 00 :00 dose, Mon Medica l mL) 02/03/20 at [place] injection 1845, 120 mL Routine maalox:diph 2020-0 2020- No 15mL 15 mL, Uni vers enhydrAMINE 02-02 Oral, ity of :lidocaine 22:45: 22:41 ONCE, 1 [place] J as 2 % viscous 00 :00 dose, Mon Med ical 1:1:1 02/03/20 at [place] (FIRST-MOUT 1744, PIERRE HWASH BLM) oral suspension 15 mL venlafaxine 2019-0 Yes 75mg Take 75 mg Univers 75 mg 7-02 by mouth 2 ity of tablet 19:14: (two) 09 times Medical daily. Branch levothyroxi 2019-0 Yes 50ug Take 50 Uni vers ne 50 mcg 7-02 mcg by ity of tablet 19:14: mouth every Medical morning. Branch tamsulosin 2020-0 Yes Take by Uni vers 0.4 mg 24 7-02 mouth ity of hr capsule 19:14: daily. Medical Branch lisinopril 2020-0 Yes 2.5mg Take 2.5 Un [place] 2.5 mg 7-02 mg by ity of tablet 19:14: mouth daily. Medical Branch metoclopram 2020-0 2020- No 10mg Take 10 mg Univers dora HCl 10 11-20 07-02 by mouth ity of mg tablet 16:00: 00:00 before [place] 31 :00 meals. Medical Branch cadexomer 2020-0 Yes [id number] Apply to Univers iodine 0.9 - 537992 area(s) ity of % gel 00:00: every [place] 00 evening. Medical Branch cadexomer 2020-0 2020- No [id number] Apply to Univers iodine 0.9 7-02 -16 [id number] area(s) ity of % gel 00:00: 00:00 every [place] 00 :00 evening. Medical Branch piperacilli 2019- 2020- No [id number] 3.375g Infuse Univers n-tazobacta 11-20 [id number] 3.375 g it y of m 3.375 00:00: 04:59 every 6 [place] gram/50 mL 00 :00 (six) Medical Piggyback hours for Branc h RTU 35 days. vancomycin/ 2019- 2020- No [id number] 1250mg Infuse Univers 0.9 % sod 11-20 [id number] 1,250 mg ity of chloride 00:00: 04:59 every 12 [place] (VANCOMYCIN 00 :00 (twelve) Medi uriel 1250 MG IN hours for Bran ch NS 250 ML) 35 days. 1.25 gram/250 mL Soln insulin NPH 2019- No [id number] 15U inject 15 Univers and regular 11-20 Units ity of human 70-30 00:00: 04:59 under the [place] 100 unit/mL 00 :00 skin every Me dical (70-30) morning Branch injection and evening for 30 days. lidocaine 2019-2019- No 5mL 5 mL, Univer s 1% (PF) 11-19 Subcutaneo ity o f (XYLOCAINE) 16:00: 21:00 us, ONCE, [place] injection 5 00 :00 1 dose, Medic al mL [facility] 11/20/19 Branch at 1100, Routine NaCl 0.9% 2019- Yes 10mL 10 mL, Univer s (NS) 11-19 Slow IV ity of injection 15:53: Push, PRN, [place] 10 mL 33 Starting Medical [facility] 11/20/19 Branch at 1053, Until Discontinu ed, Routine, line maintenanc e magnesium 2019- 2020- No 296mL 296 mL, Uni vers citrate 11-19 Oral, ity of solution 15:30: 14:45 ONCE, 1 [place] 296 mL 00 :00 dose, [facility] 11/20/19 at Branch 1030, Routine tc 2019- 2020- No 24.3mCi 24.3 Univers 99m-medrona 11-18 06-30 millicurie i ty of te 18:45: 18:34 , [place] (DRAXIMAGE 00 :00 Intravenou Med ical MDP-25) s, ONCE, 1 Branch injection dose, Tue 24.3 11/19/19 at millicurie 1345, Routine morpHINE 2020-0 Yes 2mg 2 mg, Slow Uni vers injection 2 11-18 IV Push, ity of mg 09:37: Q4HPRN, [place] 09 Starting Medical Tue [place] 11/19/19 at 0437, Until Discontinu ed, Routine, Pain (scale 7-10) ondansetron 2020-0 Yes 4mg 4 mg, Slow Univers (ZOFRAN 11-17 IV Push, ity of (PF)) 17:29: Q6HPRN, [place] injection 4 40 Starting Medi uriel mg Mon [place] 11/18/19 at 1229, Until Discontinu ed, Routine, Nausea and Vomiting (N/V) atorvastati 2020-0 Yes 80mg 80 mg, Univ ers n (LIPITOR) 11-17 Oral, QHS, it y of tablet 80 02:00: First dose [place] mg 00 on [facility] 11/17/19 at [place] 2100, Until Discontinu ed, Routine iohexol 2020-0 2020- No 120mL 120 mL, Unive rs (OMNIPAQUE 11-17 Intravenou it y of 350 01:00: 01:00 s, ONCE, 1 [place] BULK-150 00 :00 dose, [place] Medica l mL) 11/17/19 at [place] injection 2015, 120 mL Routine vancomycin 2020-0 Yes 1250mg 1,250 mg, Univers 1250 mg in 11-17 IV ity of NS 250 mL 00:45: Piggyback, [place] RTU IV 00 Q12H ABX, Medical Piggyback First dose Bran ch 1,250 mg on [place] 11/17/19 at 1945, Until Discontinu ed
Reas on for Anti-Infec tive: Documented Infection< br>Documen ludmila Infection Site: Skin / Soft Tissue< br>Duratio n of Therapy: Other (see Comments) cadexomer 2020-0 Yes Topical, Univ ers iodine 11-16 DAILY AT ity of (IODOSORB 20:45: 1700, [place] GEL) 0.9 % 00 First dose Med ical gel on [facility] 11/17/19 at 1545, Until Discontinu ed, Routine lisinopril 2020-0 Yes 2.5mg 2.5 mg, Uni vers (PRINIVIL,Z 11-16 Oral, ity of ESTRIL) 14:00: DAILY, [place] tablet 2.5 00 First dose Med ical mg on [place] Branch 11/17/19 at 0900, Until Discontinu ed, Routine pantoprazol 2020-0 Yes 40mg 40 mg, Univ ers e 11-16 Oral, ity of (PROTONIX) 14:00: DAILY, [place] EC tablet 00 First dose Medi uriel 40 mg on [place] Branch 11/17/19 at 0900, Until Discontinu ed, Routine tamsulosin 2020-0 Yes .4mg 0.4 mg, [facility] ers (FLOMAX) 11-16 Oral, ity of capsule 0.4 14:00: DAILY, [place] mg 00 First dose Medical on [facility] 11/17/19 at 0900, Until Discontinu ed, Routine venlafaxine 2020-0 Yes 75mg 75 mg, [facility] ers (EFFEXOR) 11-16 Oral, BID, ity of tablet 75 13:00: First dose [place] mg 00 on [facility] 11/17/19 at Branch 0800, Until Discontinu ed, Routine Sliding 2020-0 Yes Subcutaneo [facility] ers Scale 11-16 us, AC+HS, ity of Insulin-Reg 12:30: First dose [place] ular + Fsbg 00 on [facility] l Testing 11/17/19 at Branch 0730, Until Discontinu ed, Routine levothyroxi 2020-0 Yes 50ug 50 mcg, Uni vers ne 11-16 Oral, ity of (SYNTHROID) 11:00: QAM-0600, [place] tablet 50 00 First dose Medi uriel mcg on [place] Branch 11/17/19 at 0600, Until Discontinu ed, Routine nitroglycer 2020-0 Yes .4mg 0.4 mg, Uni vers in 11-16 Sublingual ity of (NITROSTAT) 06:58: , Q5MIN [place] J as sublingual 54 PRN, Medical tablet 0.4 Starting Branc h mg [place] 11/17/19 at 0158, Until Discontinu ed, Routine, Chest pain piperacilli 2020-0 Yes 3.375g 3.375 g, Univers n-tazobacta 11-16 IV ity of m (ZOSYN) 05:00: Piggyback, [place] 3.375 00 Q6H ABX, Medical gram/50 mL First dose Bra [facility] Piggyback on Sun RTU 3.375 g 11/17/19 at 0000, Until Discontinu ed, 50 mL
R debbie for Anti-Infec tive: Empiric Therapy for Suspected Infection< br>Empiric Therapy Site: Skin / Soft tissue
Duration of therapy: 7 days insulin NPH 2020-0 Yes 15U 15 Units, U nivers and regular 11-16 Subcutaneo it y of human 30 04:00: , [place] (HUMULIN 00 QAM+PM, Medical 70-30 U-100 First dose Br anch INSULIN) on Sat 100 unit/mL 11/16/19 at (70-30) 2300, injection Until 15 Units Discontinu ed, Routine morpHINE 2019-0 2020- No 2mg 2 mg, Slow Un [place] injection 2 11-16 06-30 IV Push, ity of mg 03:46: 03:45 [place], [place] 00 :00 Starting Medical Sat Branch 11/16/19 at 2246, Until 11/18/19 at 2245, Routine, Pain (scale 7-10) acetaminoph 2019-0 Yes 650mg 650 mg, Un charley en 11-16 Oral, ity of (TYLENOL) 03:45: Q6[place], [place] tablet 650 39 Starting Medic al mg Sat Branch 11/16/19 at 2245, Until Discontinu ed, Routine, Pain (scale 1-3) glucagon 2020-0 Yes 1mg 1 mg, Univers (GLUCAGEN 11-16 Intramuscu ity of DIAGNOSTIC 02:30: lar, PRN, [place] KIT) 42 Starting Medical injection 1 Sat Branch mg 11/16/19 at 2130, Until Discontinu ed, PIERRE, Blood Glucose < or = 70 mg/dL and patient is unable to swallow or has mental changes. dextrose 50 2020-0 Yes 25mL 25 mL, Univ ers % in water 11-16 Slow IV ity of (D50W) 02:30: Push, PRN, [place] injection 42 Starting Medica l 25 mL Sat Branch 11/16/19 at 2130, Until Discontinu ed, PIERRE, Blood Glucose < or = 70 mg/dL and patient is unable to swallow or has mental status changes. morpHINE 2020-0 2020- No 4mg 4 mg, Slow Un char[place] injection 4 11-16 IV Push, ity of mg 00:45: 23:37 ONCE, 1 [place] 00 :00 dose, [facility] Medical 11/16/19 at Branch 1945, STAT insulin 2019-0 2019- No 8U 8 Units, Unive rs regular 11-16 Subcutaneo ity o f human 00:45: 23:37 us, ONCE, [place] (HUMULIN R) 00 :00 1 dose, Medic al injection 8 Sat Branch Units 11/16/19 at 1945, PIERRE iohexol 2019- No 120mL 120 mL, Unive rs (OMNIPAQUE 11-15 Intravenou it y of 350 23:57: 23:57 s, ONCE, 1 [place] BULK-150 00 :00 dose, Sat Medica l mL) 11/16/19 at [place] injection 1915, 120 mL Routine NaCl 0.9% 2019- No 1000mL at 999 Uni vers (NS) bolus 11-15 mL/hr, ity of infusion 23:30: 23:37 1,000 mL, Juan J as 1,000 mL 00 :00 IV Medical Infusion, [place] ONCE, 1 dose, [facility] 11/16/19 at 1830, PIERRE ondansetron 2019-2019- No 8mg 8 mg, Slow Univers (ZOFRAN 11-15 IV Push, ity of (PF)) 23:30: 22:27 ONCE, 1 [place] injection 8 00 :00 dose, Sat Med ical mg 11/16/19 at Branch 1830, PIERRE morpHINE 2019- No 4mg 4 mg, Slow Un charley injection 4 11-15 IV Push, ity of mg 23:30: 22:27 ONCE, 1 [place] 00 :00 dose, [facility] Medical 11/16/19 at Branch 1830, STAT vancomycin 2019-0 2020- No 15mg/kg 1,000 mg Univers 1000 mg in 11-15 (rounded ity of NS 200 mL 23:00: 23:27 from 1,020 [place] RTU IV 00 :00 mg = 15 Medical Piggyback mg/kg ?68 Branc h 1,000 mg kg), IV Piggyback, ONCE, 1 dose, [facility] 11/16/19 at 1800
Reason for Anti-Infec tive: Documented Infection< br>Documen ludmila Infection Site: Skin / Soft Tissue
Duration of Therapy: Other (see Comments) acetaminoph 2019-0 2020- No 650mg 650 mg, U nivers en 11-15 Oral, ity of (TYLENOL) 23:00: 22:26 ONCE, 1 [place] tablet 650 00 :00 dose, Sat Medi uriel mg 11/16/19 at Branch 1800, PIERRE NaCl 0.9% 2019-0 2020- No 1000mL at 999 Uni vers (NS) bolus 11-15 mL/hr, ity of infusion 22:00: 23:30 1,000 mL, Juan J as 1,000 mL 00 :00 IV Medical Infusion, Branch ONCE, 1 dose, 11/16/19 at 1700, PIERRE NaCl 0.9% 2019-0 2020- No 500mL at 999 Univ ers (NS) bolus 09-17- mL/hr, 500 it y of infusion 06:00: 05:38 mL, IV [place] 500 mL 00 :00 Infusion, Medical ONCE, 1 Branch dose, 09/18/19 at 0100, STAT NaCl 0.9% 2019-0 2020- No 500mL at 999 Univ ers (NS) bolus 09-17- mL/hr, 500 it y of infusion 05:15: 04:46 mL, IV [place] 500 mL 00 :00 Infusion, Medical ONCE, 1 Branch dose, 09/18/19 at 0015, STAT diphenhydrA 2019- 2020- No 25mg 25 mg, Uni vers MINE 09-17 Slow IV ity of (BENADRYL) 04:00: 02:54 Push, [place] injection 00 :00 ONCE, 1 Medical 25 mg dose, [facility] Branch 09/17/19 at 2300, STAT metoclopram 2019-0 2020- No 10mg 10 mg, Uni vers dora HCl 09-17 Slow IV ity of (REGLAN) 04:00: 02:54 Push, [place] injection 00 :00 ONCE, 1 Medical 10 mg dose, [facility] Branch 09/17/19 at 2300, PIERRE morpHINE 2019-0 2020- No 4mg 4 mg, Slow Un charley injection 4 09-17 IV Push, ity of mg 04:00: 02:55 ONCE, 1 [place] 00 :00 dose, [facility] Medical 09/17/19 at Branch 2300, STAT iohexol 2020-0 2020- No 120mL 120 mL, Unive rs (OMNIPAQUE 09-17 Intravenou it y of 350 02:38: 02:38 s, ONCE, 1 [place] BULK-150 00 :00 dose, Tue Medica l mL) 09/17/19 at Branch injection 2145, 120 mL Routine sodium 2020-0 Yes 5mL 5 mL, Univers chloride 09-17 Intravenou ity o f (NS) 01:38: s, PRN, [place] injection 5 51 Starting Medi uriel mL [facility] 09/17/19 at 2037, Until Discontinu ed, Routine, IV line [place] dicyclomine 2020-0 Yes [id number] 20mg Take 1 Univers 20 mg - tablet by ity of tablet 00:00: mouth [place] 00 every 6 Medical (six) Branch hours as needed for Abdominal pain. ciprofloxac 2020-0 Yes [id number] 500mg Take 1 Univers in HCl 500 - tablet by ity of mg tablet 00:00: mouth 2 [place] 00 (two) Medical times Branch daily. metroNIDAZO 2020-0 Yes [id number] 500mg Take 1 Univers LE 500 mg - tablet by ity o f tablet 00:00: mouth 2 [place] 00 (two) Medical times Branch daily. dicyclomine 2020-0 2020- No [id number] 20mg Take 1 Univers 20 mg -16 12- tablet by ity of tablet 00:00: 00:00 mouth [place] 00 :00 every 6 Medical (six) Branch hours as needed for Abdominal pain. ciprofloxac 2020-0 2020- No [id number] 500mg Take 1 Univers in HCl 500 -16 12- tablet by ity of mg tablet 00:00: 00:00 [facility] Medical times Branch daily. metroNIDAZO 2020-0 2020- No [id number] 500mg Take 1 Univers LE 500 mg -16 12- tablet by ity of tablet 00:00: 00:00 mouth 2 [place] 00 :00 (two) Medical times Branch daily. lisinopril 2020-0 Yes 2.5mg Take 2.5 Un [place] 2.5 mg 4-16 mg by ity of tablet 19:24: mouth [place] 40 daily. [facility] lisinopril 2019-0 Yes 2.5mg Take 2.5 Un charley 2.5 mg 4-16 mg by ity of tablet 19:24: mouth [place] 40 daily. [facility] lisinopril 2019-0 Yes 2.5mg Take 2.5 Un charley 2.5 mg 4-16 mg by ity of tablet 19:24: mouth [place] 40 daily. [facility] clindamycin 2020- No 300mg 300 mg, U nivers (CLEOCIN 08-14 Oral, ity of HCL) 20:01: 20:02 ONCE, 1 [place] capsule 300 00 :00 dose, [facility] Med ical mg 08/15/19 at Branch 1515, PIERRE
Re ason for Anti-Infec tive: Documented Infection< br>Documen ludmila Infection Site: Skin / Soft Tissue
Duration of Therapy: Other (see Comments)< br>Restric ludmila use approved by: [employer] PROVIDER NaCl 0.9% 2019- No 500mL at 999 Univ ers (NS) bolus 08-14 mL/hr, 500 it y of infusion 19:30: 19:00 mL, IV [place] 500 mL 00 :00 Infusion, Medical ONCE, 1 [place] dose, [place] 08/15/19 at 1430, STAT iohexol 2019- No 120mL 120 mL, Unive rs (OMNIPAQUE 08-14 Intravenou it y of 350 19:15: 19:15 s, ONCE, 1 [place] BULK-150 00 :00 dose, [place] Medica l mL) 08/15/19 at [place] injection 1415, 120 mL Routine FENTanyl PF 2019- No 50ug 50 mcg, Un [place]ley (SUBLIMAZE 08-14 Slow IV ity o f (PF)) 18:23: 18:39 Push, [place] injection 00 :00 ONCE, 1 Medical 50 mcg dose, [facility] Branch 08/15/19 at 1330, STAT insulin 2019- 2020- No 7U 7 Units, Unive rs regular 08-14 Slow IV ity of human 18:20: 18:39 Push, [place] (HUMULIN R) 00 :00 ONCE, 1 Medic al injection 7 dose, [facility] Units 08/15/19 at 1330, STAT ondansetron 2020-0 2020- No 4mg 4 mg, Slow Univers (ZOFRAN 08-14 IV Push, ity of (PF)) 17:45: 17:45 ONCE, 1 [place] injection 4 00 :00 dose, [facility] Med ical mg 08/15/19 at Branch 1245, [facility] maalox:diph 2020-0 2020- No 15mL 15 mL, Uni vers enhydrAMINE 08-14 Oral, ity of :lidocaine 17:45: 17:45 ONCE, 1 [place] as 2 % viscous 00 :00 dose, [place] Med ical 1:1:1 08/15/19 at [place] (FIRST-MOUT 1245, [facility] HWASH BLM) oral suspension 15 mL famotidine 2020-0 2020- No 20mg 20 mg, Univ ers (PEPCID 08-14 Slow IV ity of (PF)) 17:45: 17:45 Push, [place] injection 00 :00 ONCE, 1 Medical 20 mg dose, [facility] Branch 08/15/19 at 1245, [facility] clindamycin 2020-0 Yes [id number] 300mg Take 1 Univers 300 mg 3-26 capsule by ity of capsule 00:00: mouth 3 [place] 00 (three) Medical times Branch daily. dicyclomine 2020-0 Yes [id number] 10mg Take 1 Univers (BENTYL) 10 3-26 capsule by it y of mg capsule 00:00: mouth 3 [place] 00 (three) Medical times Branch daily as needed for Abdominal pain. ondansetron 2020-0 Yes [id number] 4mg Take 1 Univers (ZOFRAN 3-26 tablet by ity of ODT) 4 mg 00:00: mouth [place] disintegrat 00 every 8 Medic al ing tablet (eight) Branch hours as needed for Nausea and Vomiting (N/V). clindamycin 2020-0 Yes [id number] 300mg Take 1 Univers 300 mg 3-26 capsule by ity of capsule 00:00: mouth 3 [place] 00 (three) Medical times Branch daily. dicyclomine 2020-0 Yes [id number] 10mg Take 1 Univers (BENTYL) 10 3-26 capsule by it y of mg capsule 00:00: mouth 3 [place] 00 (three) Medical times Branch daily as needed for Abdominal pain. ondansetron 2020-0 Yes [id number] 4mg Take 1 Univers (ZOFRAN 3-26 tablet by ity of ODT) 4 mg 00:00: mouth [place] disintegrat 00 every 8 Medic al ing tablet (eight) Branch hours as needed for Nausea and Vomiting (N/V). clindamycin 2020-0 Yes [id number] 300mg Take 1 Univers 300 mg 3-26 capsule by ity of capsule 00:00: mouth 3 [place] 00 (three) Medical times Branch daily. dicyclomine 2020-0 Yes [id number] 10mg Take 1 Univers (BENTYL) 10 3-26 capsule by it y of mg capsule 00:00: mouth 3 [place] 00 (three) Medical times Branch daily as needed for Abdominal pain. ondansetron 2020-0 Yes [id number] 4mg Take 1 Univers (ZOFRAN 3-26 tablet by ity of ODT) 4 mg 00:00: mouth [place] disintegrat 00 every 8 Medic al ing tablet (eight) Branch hours as needed for Nausea and Vomiting (N/V). clindamycin 2020-0 Yes [id number] 300mg Take 1 Univers 300 mg 3-26 capsule by ity of capsule 00:00: mouth 3 [place] 00 (three) Medical times Branch daily. dicyclomine 2020-0 Yes [id number] 10mg Take 1 Univers (BENTYL) 10 3-26 capsule by it y of mg capsule 00:00: mouth 3 [place] 00 (three) Medical times Branch daily as needed for Abdominal pain. ondansetron 2020-0 Yes [id number] 4mg Take 1 Univers (ZOFRAN 3-26 tablet by ity of ODT) 4 mg 00:00: mouth [place] disintegrat 00 every 8 Medic al ing tablet (eight) Branch hours as needed for Nausea and Vomiting (N/V). clindamycin 2020-0 Yes [id number] 300mg Take 1 Univers 300 mg 3-26 capsule by ity of capsule 00:00: mouth 3 [place] 00 (three) Medical times Branch daily. dicyclomine 2020-0 Yes [id number] 10mg Take 1 Univers (BENTYL) 10 3-26 capsule by it y of mg capsule 00:00: mouth 3 [place] 00 (three) Medical times Branch daily as needed for Abdominal pain. ondansetron 2020-0 Yes [id number] 4mg Take 1 Univers (ZOFRAN 3-26 tablet by ity of ODT) 4 mg 00:00: mouth [place] disintegrat 00 every 8 Medic al ing tablet (eight) Branch hours as needed for Nausea and Vomiting (N/V). clindamycin 2020-0 Yes [id number] 300mg Take 1 Univers 300 mg 3-26 capsule by ity of capsule 00:00: mouth 3 [place] 00 (three) Medical times Branch daily. dicyclomine 2020-0 Yes [id number] 10mg Take 1 Univers (BENTYL) 10 3-26 capsule by it y of mg capsule 00:00: mouth 3 [place] 00 (three) Medical times Branch daily as needed for Abdominal pain. ondansetron 2020-0 Yes [id number] 4mg Take 1 Univers (ZOFRAN 3-26 tablet by ity of ODT) 4 mg 00:00: mouth [place] disintegrat 00 every 8 Medic al ing tablet (eight) Branch hours as needed for Nausea and Vomiting (N/V). clindamycin 2020-0 Yes [id number] 300mg Take 1 Univers 300 mg 3-26 capsule by ity of capsule 00:00: mouth 3 [place] 00 (three) Medical times Branch daily. dicyclomine 2020-0 Yes [id number] 10mg Take 1 Univers (BENTYL) 10 3-26 capsule by it y of mg capsule 00:00: mouth 3 [place] 00 (three) Medical times Branch daily as needed for Abdominal pain. ondansetron 2020-0 Yes [id number] 4mg Take 1 Univers (ZOFRAN 3-26 tablet by ity of ODT) 4 mg 00:00: mouth [place] disintegrat 00 every 8 Medic al ing tablet (eight) Branch hours as needed for Nausea and Vomiting (N/V). clindamycin 2020-0 Yes [id number] 300mg Take 1 Univers 300 mg 3-26 capsule by ity of capsule 00:00: mouth 3 [place] 00 (three) Medical times Branch daily. dicyclomine 2020-0 Yes [id number] 10mg Take 1 Univers (BENTYL) 10 3-26 capsule by it y of mg capsule 00:00: mouth 3 [place] 00 (three) Medical times Branch daily as needed for Abdominal pain. ondansetron 2020-0 Yes [id number] 4mg Take 1 Univers (ZOFRAN 3-26 tablet by ity of ODT) 4 mg 00:00: mouth [place] disintegrat 00 every 8 Medic al ing tablet (eight) Branch hours as needed for Nausea and Vomiting (N/V). ondansetron 2020-0 Yes [id number] 4mg Take 1 Univers (ZOFRAN 3-26 tablet by ity of ODT) 4 mg 00:00: mouth [place] disintegrat 00 every 8 Medic al ing tablet (eight) Branch hours as needed for Nausea and Vomiting (N/V). ondansetron 2020-0 2020- No [id number] 4mg Take 1 Univers (ZOFRAN 3-26 09-16 tablet by ity of ODT) 4 mg 00:00: 00:00 mouth [place] disintegrat 00 :00 every 8 Medic al ing tablet (eight) Branch hours as needed for Nausea and Vomiting (N/V). clindamycin 2020-0 2020- No [id number] 300mg Take 1 Univers 300 mg 08-14- capsule by ity of capsule 00:00: 00:00 mouth 3 [place] 00 :00 (three) Medical times Branch daily. dicyclomine 2020-0 2020- No [id number] 10mg Take 1 Univers (BENTYL) 10 08-14- capsule by i ty of mg capsule 00:00: 00:00 mouth 3 [place] 00 :00 (three) Medical times Branch daily as needed for Abdominal pain. mupirocin 2 2020-0 2020- No [id number] Apply to Univers % ointment 08-14 area(s) 3 ity of 00:00: 04:59 (three) [place] 00 :00 times Medical daily for Branch 5 days. mupirocin 2 2020-0 2020- No [id number] Apply to Univers % ointment 08-14 area(s) 3 ity of 00:00: 04:59 (three) [place] 00 :00 times Medical daily for Branch 5 days. mupirocin 2 2020-0 2020- No [id number] Apply to Univers % ointment 08-14 area(s) 3 ity of 00:00: 04:59 (three) [place] 00 :00 times Medical daily for Branch 5 days. mupirocin 2 2019- 2020- No [id number] Apply to Univers % ointment 08-14- area(s) 3 ity of 00:00: 04:59 (three) [place] 00 :00 times Medical daily for Branch 5 days. mupirocin 2 2019- 2020- No [id number] Apply to Univers % ointment 08-14 area(s) 3 ity of 00:00: 04:59 (three) [place] 00 :00 times Medical daily for Branch 5 days. clindamycin 2019- 2020- No [id number] 300mg Take 1 Univers 300 mg 08-14- capsule by ity of capsule 00:00: 00:00 mouth 3 [place] 00 :00 (three) Medical times Branch daily for 7 days. dicyclomine 2019-2019- No [id number] 10mg Take 1 Univers (BENTYL) 10 08-14- capsule by i ty of mg capsule 00:00: 00:00 mouth 3 [place] 00 :00 (three) Medical times Branch daily as needed for Abdominal pain. ondansetron 2019-2019- No [id number] 4mg Take 1 Univers (ZOFRAN 08-14-26 tablet by ity of ODT) 4 mg 00:00: 00:00 mouth [place] disintegrat 00 :00 every 8 Medic al ing tablet (eight) Branch hours as needed for Nausea and Vomiting (N/V). ezetimibe 2019-0 2020- No [id number] 10mg Take 1 U nivers 10 mg 3-21 -21 tablet by ity of tablet 00:00: 04:59 mouth [place] 00 :00 daily for Medical 30 days. Branch ezetimibe 2019-0 2020- No [id number] 10mg Take 1 U nivers 10 mg 3-21 -21 tablet by ity of tablet 00:00: 04:59 mouth [place] 00 :00 daily for Medical 30 days. Branch ezetimibe 2020-0 2020- No [id number] 10mg Take 1 U nivers 10 mg 3-21 04-21 tablet by ity of tablet 00:00: 04:59 mouth [place] 00 :00 daily for Medical 30 days. Branch ezetimibe 2020-0 2020- No [id number] 10mg Take 1 U nivers 10 mg 3-21 04-21 tablet by ity of tablet 00:00: 04:59 mouth [place] 00 :00 daily for Medical 30 days. Branch ezetimibe 2019-0 2020- No [id number] 10mg Take 1 U nivers 10 mg 3-21 04-21 tablet by ity of tablet 00:00: 04:59 mouth [place] 00 :00 daily for Medical 30 days. Branch ezetimibe 2019-2019- No [id number] 10mg Take 1 U nivers 10 mg 3-21 04-21 tablet by ity of tablet 00:00: 04:59 mouth [place] 00 :00 daily for Medical 30 days. Branch ezetimibe 2019-0 2020- No [id number] 10mg Take 1 U nivers 10 mg 3-21 04-21 tablet by ity of tablet 00:00: 04:59 mouth [place] 00 :00 daily for Medical 30 days. [place] ezetimibe 2019- 2020- No [id number] 10mg Take 1 U nivers 10 mg 3-21 -21 tablet by ity of tablet 00:00: 04:59 mouth [place] 00 :00 daily for Medical 30 days. [place] ezetimibe 2019-0 2020- No [id number] 10mg Take 1 U nivers 10 mg 3-21 -21 tablet by ity of tablet 00:00: 04:59 mouth [place] 00 :00 daily for Medical 30 days. Branch ezetimibe 2019-0 2020- No [id number] 10mg Take 1 U nivers 10 mg 3-21 -21 tablet by ity of tablet 00:00: 04:59 mouth [place] 00 :00 daily for Medical 30 days. Branch venlafaxine 2020-0 Yes 75mg Take 75 mg Univers 75 mg 3-20 by mouth 2 ity of tablet 20:20: (two) [place] [id number] times Medical daily. Branch levothyroxi 2020-0 Yes 50ug Take 50 Uni vers ne 50 mcg 3-20 mcg by ity of tablet 20:20: mouth [place] every Medical morning. Branch metoclopram 2020-0 Yes 10mg Take 10 mg Univers dora HCl 10 3-20 by mouth ity o f mg tablet 20:20: before [place] [id number] meals. Medical Branch tamsulosin 2020-0 Yes Take by Uni vers 0.4 mg 24 3-20 mouth ity of hr capsule 20:20: daily. [place] [address] Medical Branch lisinopril 2020-0 Yes 2.5mg Take 2.5 Un [place] 2.5 mg 3-20 mg by ity of tablet 20:20: mouth [place] 17 daily. Medical Branch venlafaxine 2020-0 Yes 75mg Take 75 mg Univers 75 mg 3-20 by mouth 2 ity of tablet 20:20: (two) [place] 17 times Medical daily. Branch levothyroxi 2020-0 Yes 50ug Take 50 Uni vers ne 50 mcg 3-20 mcg by ity of tablet 20:20: mouth [place] 17 every Medical morning. Branch metoclopram 2020-0 Yes 10mg Take 10 mg Univers dora HCl 10 3-20 by mouth ity o f mg tablet 20:20: before [place] 17 meals. Medical Branch tamsulosin 2020-0 Yes Take by Uni vers 0.4 mg 24 3-20 mouth ity of hr capsule 20:20: daily. Medical Branch lisinopril 2020-0 Yes 2.5mg Take 2.5 [place] 2.5 mg 3-20 mg by ity of tablet 20:20: mouth [place] 17 daily. Medical Branch venlafaxine 2020-0 Yes 75mg Take 75 mg [facility] 75 mg 3-20 by mouth 2 ity of tablet 20:20: (two) [place] 17 times Medical daily. Branch levothyroxi 2020-0 Yes 50ug Take 50 Uni vers ne 50 mcg 3-20 mcg by ity of tablet 20:20: mouth [place] 17 every Medical morning. Branch metoclopram 2020-0 Yes 10mg Take 10 mg Univers dora HCl 10 3-20 by mouth ity o f mg tablet 20:20: before [place] meals. Medical Branch tamsulosin 2020-0 Yes Take by Uni vers 0.4 mg 24 3-20 mouth ity of hr capsule 20:20: daily. Medical Branch lisinopril 2020-0 Yes 2.5mg Take 2.5 [place] 2.5 mg 3-20 mg by ity of tablet 20:20: mouth [place] 17 daily. Medical Branch venlafaxine 2020-0 Yes 75mg Take 75 mg [facility] 75 mg 3-20 by mouth 2 ity of tablet 20:20: (two) [place] 17 times Medical daily. Branch levothyroxi 2020-0 Yes 50ug Take 50 Uni vers ne 50 mcg 3-20 mcg by ity of tablet 20:20: mouth [place] 17 every Medical morning. Branch metoclopram 2020-0 Yes 10mg Take 10 mg [facility] dora HCl 10 3-20 by mouth ity o f mg tablet 20:20: before [place] 17 meals. Medical Branch tamsulosin 2020-0 Yes Take by Uni vers 0.4 mg 24 3-20 mouth ity of hr capsule 20:20: daily. Medical Branch lisinopril 2020-0 Yes 2.5mg Take 2.5 [place] 2.5 mg 3-20 mg by ity of tablet 20:20: mouth [place] 17 daily. Medical Branch venlafaxine 2020-0 Yes 75mg Take 75 mg [facility] 75 mg 3-20 by mouth 2 ity of tablet 20:20: (two) [place] 17 times Medical daily. Branch levothyroxi 2020-0 Yes 50ug Take 50 Uni vers ne 50 mcg 3-20 mcg by ity of tablet 20:20: mouth [place] 17 every Medical morning. Branch metoclopram 2020-0 Yes 10mg Take 10 mg [facility] dora HCl 10 3-20 by mouth ity o f mg tablet 20:20: before [place] 17 meals. Medical Branch tamsulosin 2020-0 Yes Take by Uni vers 0.4 mg 24 3-20 mouth ity of hr capsule 20:20: daily. Medical Branch lisinopril 2020-0 Yes 2.5mg Take 2.5 [place] 2.5 mg 3-20 mg by ity of tablet 20:20: mouth [place] 17 daily. Medical Branch venlafaxine 2020-0 Yes 75mg Take 75 mg [facility] 75 mg 3-20 by mouth 2 ity of tablet 20:20: (two) [place] 17 times Medical daily. Branch levothyroxi 2020-0 Yes 50ug Take 50 Uni vers ne 50 mcg 3-20 mcg by ity of tablet 20:20: mouth [place] 17 every Medical morning. Branch metoclopram 2020-0 Yes 10mg Take 10 mg [facility] dora HCl 10 3-20 by mouth ity o f mg tablet 20:20: before [place] 17 meals. Medical Branch tamsulosin 2020-0 Yes Take by Uni vers 0.4 mg 24 3-20 mouth ity of hr capsule 20:20: daily. Medical Branch lisinopril 2020-0 Yes 2.5mg Take 2.5 [place] 2.5 mg 3-20 mg by ity of tablet 20:20: mouth [place] 17 daily. Medical Branch venlafaxine 2020-0 Yes 75mg Take 75 mg [facility] 75 mg 3-20 by mouth 2 ity of tablet 20:20: (two) [place] 17 times Medical daily. Branch levothyroxi 2020-0 Yes 50ug Take 50 Uni vers ne 50 mcg 3-20 mcg by ity of tablet 20:20: mouth [place] 17 every Medical morning. Branch metoclopram 2020-0 Yes 10mg Take 10 mg [facility] dora HCl 10 3-20 by mouth ity o f mg tablet 20:20: before [place] 17 meals. Medical Branch tamsulosin 2020-0 Yes Take by Uni vers 0.4 mg 24 3-20 mouth ity of hr capsule 20:20: daily. Medical Branch lisinopril 2020-0 Yes 2.5mg Take 2.5 [place] 2.5 mg 3-20 mg by ity of tablet 20:20: mouth [place] 17 daily. Medical Branch venlafaxine 2020-0 Yes 75mg Take 75 mg [facility] 75 mg 3-20 by mouth 2 ity of tablet 20:20: (two) [place] 17 times Medical daily. Branch levothyroxi 2020-0 Yes 50ug Take 50 Uni vers ne 50 mcg 3-20 mcg by ity of tablet 20:20: mouth [place] 17 every Medical morning. Branch metoclopram 2020-0 Yes 10mg Take 10 mg [facility] dora HCl 10 3-20 by mouth ity o f mg tablet 20:20: before [place] 17 meals. Medical Branch tamsulosin 2020-0 Yes Take by Uni vers 0.4 mg 24 3-20 mouth ity of hr capsule 20:20: daily. Medical Branch lisinopril 2020-0 Yes 2.5mg Take 2.5 [place] 2.5 mg 3-20 mg by ity of tablet 20:20: mouth [place] 17 daily. Medical Branch venlafaxine 2020-0 Yes 75mg Take 75 mg [facility] 75 mg 3-20 by mouth 2 ity of tablet 20:20: (two) [place] 17 times Medical daily. Branch levothyroxi 2020-0 Yes 50ug Take 50 Uni vers ne 50 mcg 3-20 mcg by ity of tablet 20:20: mouth [place] 17 every Medical morning. Branch metoclopram 2020-0 Yes 10mg Take 10 mg [facility] dora HCl 10 3-20 by mouth ity o f mg tablet 20:20: before [place] meals. Medical Branch tamsulosin 2020-0 Yes Take by Uni vers 0.4 mg 24 3-20 mouth ity of hr capsule 20:20: daily. [place] [address] Medical Branch venlafaxine 2020-0 Yes 75mg Take 75 mg [facility] 75 mg 3-20 by mouth 2 ity of tablet 20:20: (two) [place] 17 times Medical daily. Branch levothyroxi 2020-0 Yes 50ug Take 50 Uni vers ne 50 mcg 3-20 mcg by ity of tablet 20:20: mouth [place] 17 every Medical morning. Branch metoclopram 2020-0 Yes 10mg Take 10 mg Univers dora HCl 10 3-20 by mouth ity o f mg tablet 20:20: before [place] 17 meals. Medical Branch tamsulosin 2020-0 Yes Take by Uni vers 0.4 mg 24 3-20 mouth ity of hr capsule 20:20: daily. [place] [address] Medical Branch venlafaxine 2020-0 Yes 75mg Take 75 mg Univers 75 mg 3-20 by mouth 2 ity of tablet 20:20: (two) [place] 17 times Medical daily. Branch levothyroxi 2020-0 Yes 50ug Take 50 Uni vers ne 50 mcg 3-20 mcg by ity of tablet 20:20: mouth [place] 17 every Medical morning. Branch metoclopram 2020-0 Yes 10mg Take 10 mg Univers dora HCl 10 3-20 by mouth ity o f mg tablet 20:20: before [place] [address] meals. Medical Branch tamsulosin 2020-0 Yes Take by Uni vers 0.4 mg 24 3-20 mouth ity of hr capsule 20:20: daily. [place] [address] Medical Branch ezetimibe 2020-0 Yes 10mg 10 mg, Univer s (ZETIA) 3-20 Oral, ity of tablet 10 14:00: DAILY, [place] mg 00 First dose Medical on Mon Branch 08/09/19 at 0900, Until Discontinu ed, Routine pantoprazol 2020-0 Yes [id number] 40mg Take 2 U nivers e 20 mg EC 3-20 tablets by ity of tablet 00:00: mouth [place] 00 daily. Medical Branch pantoprazol 2020-0 Yes [id number] 40mg Take 2 U nivers e 20 mg EC 3-20 tablets by ity of tablet 00:00: mouth [place] 00 daily. Medical Branch pantoprazol 2020-0 Yes [id number] 40mg Take 2 U nivers e 20 mg EC 3-20 tablets by ity of tablet 00:00: mouth [place] 00 daily. Medical Branch pantoprazol 2020-0 Yes [id number] 40mg Take 2 U nivers e 20 mg EC 3-20 tablets by ity of tablet 00:00: mouth [place] 00 daily. Medical Branch pantoprazol 2020-0 Yes [id number] 40mg Take 2 U nivers e 20 mg EC 3-20 tablets by ity of tablet 00:00: mouth [place] 00 daily. Medical Branch pantoprazol 2020-0 Yes [id number] 40mg Take 2 U nivers e 20 mg EC 3-20 tablets by ity of tablet 00:00: mouth [place] 00 daily. Medical Branch pantoprazol 2020-0 Yes [id number] 40mg Take 2 U nivers e 20 mg EC 3-20 tablets by ity of tablet 00:00: mouth [place] 00 daily. Medical Branch pantoprazol 2020-0 Yes [id number] 40mg Take 2 U nivers e 20 mg EC 3-20 tablets by ity of tablet 00:00: mouth [place] 00 daily. Medical Branch pantoprazol 2020-0 Yes [id number] 40mg Take 2 U nivers e 20 mg EC 3-20 tablets by ity of tablet 00:00: mouth [place] 00 daily. Medical Branch pantoprazol 2020-0 Yes [id number] 40mg Take 2 U nivers e 20 mg EC 3-20 tablets by ity of tablet 00:00: mouth [place] 00 daily. Medical Branch pantoprazol 2020-0 Yes [id number] 40mg Take 2 U nivers e 20 mg EC 3-20 tablets by ity of tablet 00:00: mouth [place] 00 daily. Medical Branch pantoprazol 2020-0 Yes [id number] 40mg Take 2 U nivers e 20 mg EC 3-20 tablets by ity of tablet 00:00: mouth [place] 00 daily. [facility] Branch pantoprazol 2020-0 2020- No [id number] 40mg Take 2 Univers e 20 mg EC 3-20 09-16 tablets by it y of tablet 00:00: 00:00 mouth [place] 00 :00 daily. [facility] Branch glipiZIDE 5 2019-0 2020- No [id number] 5mg Take 1 Univers mg tablet 3-20 04-20 tablet by ity of 00:00: 04:59 mouth 2 [place] 00 :00 (two) Medical times Branch daily before breakfast and dinner for 30 days. glipiZIDE 5 2019- 2020- No [id number] 5mg Take 1 Univers mg tablet 3-20 04-20 tablet by ity of 00:00: 04:59 mouth 2 [place] 00 :00 ([facility]) Medical times Branch daily before breakfast and dinner for 30 days. glipiZIDE 5 2019-2019- No [id number] 5mg Take 1 Univers mg tablet 3-20 04-20 tablet by ity of 00:00: 04:59 mouth 2 [place] 00 :00 ([facility]) Medical times Branch daily before breakfast and dinner for 30 days. glipiZIDE 5 2019-2019- No [id number] 5mg Take 1 Univers mg tablet 3-20 04-20 tablet by ity of 00:00: 04:59 mouth 2 [place] 00 :00 ([facility]) Medical times Branch daily before breakfast and dinner for 30 days. glipiZIDE 5 2019- No [id number] 5mg Take 1 Univers mg tablet 3-20 04-20 tablet by ity of 00:00: 04:59 mouth 2 [place] 00 :00 ([facility]) Medical times Branch daily before breakfast and dinner for 30 days. glipiZIDE 5 2019-2019- No [id number] 5mg Take 1 Univers mg tablet 3-20 04-20 tablet by ity of 00:00: 04:59 mouth 2 [place] 00 :00 ([facility]) Medical times Branch daily before breakfast and dinner for 30 days. glipiZIDE 5 2019- No [id number] 5mg Take 1 Univers mg tablet 3-20 04-20 tablet by ity of 00:00: 04:59 mouth 2 [place] 00 :00 ([facility]) Medical times Branch daily before breakfast and dinner for 30 days. glipiZIDE 5 2019- No [id number] 5mg Take 1 Univers mg tablet 3-20 04-20 tablet by ity of 00:00: 04:59 mouth 2 [place] 00 :00 ([facility]) Medical times Branch daily before breakfast and dinner for 30 days. glipiZIDE 5 2020- No [id number] 5mg Take 1 Univers mg tablet 3-20 04-20 tablet by ity of 00:00: 04:59 mouth 2 [place] 00 : ([facility]) Medical times Branch daily before breakfast and dinner for 30 days. glipiZIDE 5 2020-0 2020- No [id number] 5mg Take 1 Univers mg tablet 08-08-20 tablet by ity of 00:00: 04:59 mouth 2 [place] 00 :00 (two) Medical times Branch daily before breakfast and dinner for 30 days. NaCl 0.9% 2020-0 2020- No 500mL at 999 [facility] ers (NS) bolus 08-07-19 mL/hr, 500 it y of infusion 19:30: 18:24 mL, IV [place] 500 mL 00 :00 Piggyback, Medical ONCE, 1 Branch dose, [place] 08/08/19 at 1430, STAT metoclopram 2020-0 Yes 10mg 10 mg, Univ ers dora HCl - Oral, TID, ity of (REGLAN) 19:00: First dose [place] as tablet 10 00 on [place] Medical mg 08/08/19 at Branch 1400, Until Discontinu ed, Routine barium 2020-0 2020- No 340g 340 g, Univers sulfate 08-07 Oral, ity of (LIQUID E-Z 16:45: 16:10 ONCE, 1 [place] VELA) 60 % 00 :00 dose, [place] Med ical (w/v) oral 08/08/19 at [facility] suspension 1145, 340 g Routine insulin NPH 2020-0 Yes 14U 14 Units, U nivers (HUMULIN N) 3-18 Subcutaneo it y of injection 22:00: us, QPM, [place] 14 Units 00 First dose Medic al on Mon Branch 08/07/19 at 1700, Until Discontinu ed, Routine insulin NPH 2020-0 Yes 16U 16 Units, U nivers (HUMULIN N) 3-18 Subcutaneo it y of injection 14:00: us, QAM, [place] 16 Units 00 First dose Medic al on Mon Branch 08/07/19 at 0900, Until Discontinu ed, Routine tamsulosin 2020-0 Yes .4mg 0.4 mg, Univ ers (FLOMAX) - Oral, ity of capsule 0.4 14:00: DAILY, [place] mg 00 First dose Medical on Mon Branch 08/07/19 at 0900, Until Discontinu ed, Routine pantoprazol 2020-0 Yes 40mg 40 mg, Univ ers e 3-18 Oral, ity of (PROTONIX) 14:00: DAILY, [place] EC tablet 00 First dose Medi uriel 40 mg on Mon Branch 08/07/19 at 0900, Until Discontinu ed, Routine clopidogreL 2020-0 Yes 75mg 75 mg, [facility] ers (PLAVIX) 3-18 Oral, ity of tablet 75 14:00: DAILY, [place] mg 00 First dose Medical on Mon Branch 08/07/19 at 0900, Until Discontinu ed, Routine levothyroxi 2020-0 Yes 50ug 50 mcg, Uni vers ne 318 Oral, ity of (SYNTHROID) 11:00: QAM-0600, [place] tablet 50 00 First dose Medi uriel mcg on Mon Branch 08/07/19 at 0600, Until Discontinu ed, Routine peg-electro 2020-0 2020- No 4000mL 4,000 mL, Univers lyte soln 18 -18 Oral, ity of (GOLYTELY) 05:00: 04:28 ONCE, 1 [place] J as [id number] 00 :00 dose, Mon Med ical .74 -5.86 08/07/19 at Bran ch gram 0000, solution Routine 4,000 mL glipiZIDE 2020-0 Yes 5mg 5 mg, Univers (GLUCOTROL) 08-06 Oral, ity of tablet 5 mg 04:15: BIDAC, [place] 00 First dose Medical on [place] 08/06/19 at 2315, Until Discontinu ed, Routine Sliding 2020-0 Yes Subcutaneo [facility] ers Scale 3-18 us, TID ity of Insulin - 02:00: MEALS+HS, [place] J as Aspart 00 First dose Medical (NOVOLOG) + on Mon [place] [facility] 08/06/19 at Testing 2100, Until Discontinu ed, Routine atorvastati 2020-0 Yes 80mg 80 mg, [facility] ers n (LIPITOR) 3-18 Oral, QHS, it y of tablet 80 02:00: First dose [place] mg 00 on [facility] 08/06/19 at Branch 2100, Until Discontinu ed, Routine aspirin 2020-0 Yes 81mg 81 mg, Univers chewable 3-18 Oral, QHS, ity o f tablet 81 02:00: First dose [place] mg 00 on [facility] 08/06/19 at Branch 2100, Until Discontinu ed, Routine venlafaxine 2020-0 Yes 75mg 75 mg, Univ ers (EFFEXOR) 3-18 Oral, BID, ity of tablet 75 01:00: First dose [place] mg 00 on [facility] 08/06/19 at [place] 1999, Until Discontinu ed, Routine apixaban 2020-0 Yes 1358 5mg 5 mg, Univers (ELIQUIS) 3-18 Oral, BID, ity of tablet 5 mg 01:00: First dose [place] 00 on [facility] 08/06/19 at [place] 1999, Until Discontinu ed, Routine lisinopril 2020-0 Yes 2.5mg 2.5 mg, Uni vers (PRINIVIL,Z 3-18 Oral, ity of ESTRIL) 00:00: DAILY, [place] tablet 2.5 00 First dose Med ical mg on [facility] 08/06/19 at 1900, Until Discontinu ed, Routine hyoscyamine 2020-0 Yes .125mg 0.125 mg, Univers sulfate 08-05 Sublingual ity of (LEVSIN/SL) 23:55: , Q8HPRN, [place] sublingual 01 Starting Medic al tablet [facility] 0.125 mg 08/06/19 at 1855, Until Discontinu ed, Routine, Pain (scale 1-3), abdominal pain morpHINE 2020-0 Yes 2mg 2 mg, Slow Uni vers injection 2 17 IV Push, ity of mg 23:11: Q3HPRN, [place] 26 Starting Medical [facility] 08/06/19 at 1811, Until Discontinu ed, Routine, Chest pain insulin NPH 2020-0 2020- No 14U 14 Units, Univers (HUMULIN N) 317 Subcutaneo i ty of injection 23:00: 23:51 , [place] 14 Units 00 :41 QAM+PM, Medical First dose Branch on [facility] 08/06/19 at 1800, Until Discontinu ed, Routine ondansetron 2020-0 Yes 4mg 4 mg, Slow Univers (ZOFRAN 317 IV Push, ity of (PF)) 22:52: Q6HPRN, [place] injection 4 11 Starting Medi uriel mg [facility] 08/06/19 at 1752, Until Discontinu ed, Routine, Nausea and Vomiting (N/V) HYDROcodone 2019-0 2020- No 1{tbl} 1 tablet, Univers -acetaminop 08-05 Oral, ity of hen (NORCO 22:51: 22:50 Q6HPRN, [place] J as 5) 5-325 mg 51 :51 Starting Medi uriel tablet 1 Mon [place] tablet 08/06/19 at 1751, Until [place] 08/08/19 at 1750, Routine, Pain (scale 4-6) nitroglycer 2019-0 Yes .4mg 0.4 mg, Uni vers in 08-05 Sublingual ity of (NITROSTAT) 22:49: , Q5MIN [place] sublingual 16 PRN, Medical tablet 0.4 Starting Branc h mg 08/06/19 at 1749, Until Discontinu ed, Routine, Chest pain ondansetron 2019-0 2020- No 4mg 4 mg, Slow Univers (ZOFRAN 08-05 IV Push, ity of (PF)) 20:30: 19:38 ONCE, 1 [place] injection 4 00 :00 dose, Mon Med ical mg 08/06/19 at Branch 1530, PIERRE FENTanyl PF 2019-0 2020- No 75ug 75 mcg, [place] (SUBLIMAZE 08-05 Slow IV ity o f (PF)) 20:30: 19:38 Push, [place] injection 00 :00 ONCE, 1 Medical 75 mcg dose, [facility] Branch 08/06/19 at 1530, STAT venlafaxine 2019-0 Yes 75mg Take 75 mg Univers 75 mg 2-28 by mouth 2 ity of tablet 03:14: (two) [place] [address] times Medical daily. Branch levothyroxi 2020-0 Yes 50ug Take 50 Uni vers ne 50 mcg 2-28 mcg by ity of tablet 03:14: mouth [place] 56 every Medical morning. Branch metoclopram 2020-0 Yes 10mg Take 10 mg Univers dora HCl 10 2-28 by mouth ity o f mg tablet 03:14: before [place] meals. Medical Branch tamsulosin 2020-0 Yes Take by Uni vers 0.4 mg 24 2-28 mouth ity of hr capsule 03:14: daily. [place] [address] Medical Branch lisinopril 2020-0 Yes 2.5mg Take 2.5 [place] 2.5 mg 2-28 mg by ity of tablet 03:14: mouth [place] 56 daily. Medical Branch venlafaxine 2020-0 Yes 75mg Take 75 mg Univers 75 mg 2-28 by mouth 2 ity of tablet 03:14: (two) [place] 56 times Medical daily. Branch levothyroxi 2020-0 Yes 50ug Take 50 Uni vers ne 50 mcg 2-28 mcg by ity of tablet 03:14: mouth [place] 56 every Medical morning. Branch metoclopram 2020-0 Yes 10mg Take 10 mg Univers dora HCl 10 2-28 by mouth ity o f mg tablet 03:14: before [place] 56 meals. Medical Branch tamsulosin 2020-0 Yes Take by Uni vers 0.4 mg 24 2-28 mouth ity of hr capsule 03:14: daily. Medical Branch lisinopril 2020-0 Yes 2.5mg Take 2.5 [place] 2.5 mg 2-28 mg by ity of tablet 03:14: mouth [place] 56 daily. Medical Branch venlafaxine 2020-0 Yes 75mg Take 75 mg Univers 75 mg 2-28 by mouth 2 ity of tablet 03:14: (two) [place] 56 times Medical daily. Branch levothyroxi 2020-0 Yes 50ug Take 50 Uni vers ne 50 mcg 2-28 mcg by ity of tablet 03:14: mouth [place] 56 every Medical morning. Branch metoclopram 2020-0 Yes 10mg Take 10 mg Univers dora HCl 10 2-28 by mouth ity o f mg tablet 03:14: before [place] 56 meals. Medical Branch tamsulosin 2020-0 Yes Take by Uni vers 0.4 mg 24 2-28 mouth ity of hr capsule 03:14: daily. [place] [address] Medical Branch lisinopril 2020-0 Yes 2.5mg Take 2.5 [place] 2.5 mg 2-28 mg by ity of tablet 03:14: mouth [place] 56 daily. Medical Branch venlafaxine 2020-0 Yes 75mg Take 75 mg Univers 75 mg 2-28 by mouth 2 ity of tablet 03:14: (two) [place] 56 times Medical daily. Branch levothyroxi 2020-0 Yes 50ug Take 50 Uni vers ne 50 mcg 2-28 mcg by ity of tablet 03:14: mouth [place] 56 every Medical morning. Branch metoclopram 2020-0 Yes 10mg Take 10 mg Univers dora HCl 10 2-28 by mouth ity o f mg tablet 03:14: before [place] 56 meals. [facility] Branch tamsulosin 2020-0 Yes Take by Uni vers 0.4 mg 24 2-28 mouth ity of hr capsule 03:14: daily. [place] 56 Medical Branch lisinopril 2020-0 Yes 2.5mg Take 2.5 [place] 2.5 mg 2-28 mg by ity of tablet 03:14: mouth [place] 56 daily. [facility] Branch tamsulosin 2020-0 Yes .4mg 0.4 mg, Univ ers (FLOMAX) 2-28 Oral, QHS, ity o f capsule 0.4 03:00: First dose [place] mg 00 on [facility] 07/18/19 at Branch 2100, Until Discontinu ed, Routine atorvastati 2020-0 Yes 80mg 80 mg, Univ ers n (LIPITOR) 2-28 Oral, QHS, it y of tablet 80 03:00: First dose [place] mg 00 on [facility] 07/18/19 at [place] 2100, Until Discontinu ed, Routine clopidogreL 2020-0 2020- No 300mg 300 mg, U nivers (PLAVIX) 2-28 02-28 Oral, ity of tablet 300 02:00: 01:47 ONCE, 1 [place] mg 00 :00 dose, [facility] 07/18/19 at Branch 2000, Routine clopidogreL 2020-0 Yes [id number] 75mg Take 1 Univers 75 mg 2-28 tablet by ity of tablet 00:00: mouth [place] 00 daily. [facility] clopidogreL 2020-0 Yes [id number] 75mg Take 1 Univers 75 mg 2-28 tablet by ity of tablet 00:00: mouth [place] 00 daily. [facility] clopidogreL 2020-0 Yes [id number] 75mg Take 1 Univers 75 mg 2-28 tablet by ity of tablet 00:00: mouth [place] 00 daily. [facility] clopidogreL 2020-0 Yes [id number] 75mg Take 1 Univers 75 mg 2-28 tablet by ity of tablet 00:00: mouth [place] 00 daily. [facility] clopidogreL 2020-0 Yes [id number] 75mg Take 1 Univers 75 mg 2-28 tablet by ity of tablet 00:00: mouth [place] 00 daily. [facility] clopidogreL 2020-0 Yes [id number] 75mg Take 1 Univers 75 mg 2-28 tablet by ity of tablet 00:00: mouth [place] 00 daily. [facility] clopidogreL 2020-0 Yes [id number] 75mg Take 1 Univers 75 mg 2-28 tablet by ity of tablet 00:00: mouth [place] 00 daily. [facility] Branch clopidogreL 2020-0 Yes [id number] 75mg Take 1 Univers 75 mg 2-28 tablet by ity of tablet 00:00: mouth [place] 00 daily. [facility] Branch clopidogreL 2020-0 Yes [id number] 75mg Take 1 Univers 75 mg 2-28 tablet by ity of tablet 00:00: mouth [place] 00 daily. [facility] Branch clopidogreL 2020-0 Yes [id number] 75mg Take 1 Univers 75 mg 2-28 tablet by ity of tablet 00:00: mouth [place] 00 daily. [facility] clopidogreL 2020-0 Yes [id number] 75mg Take 1 Univers 75 mg 2-28 tablet by ity of tablet 00:00: mouth [place] 00 daily. [facility] Branch clopidogreL 2020-0 Yes [id number] 75mg Take 1 Univers 75 mg 2-28 tablet by ity of tablet 00:00: mouth [place] 00 daily. [facility] clopidogreL 2020-0 Yes [id number] 75mg Take 1 Univers 75 mg 2-28 tablet by ity of tablet 00:00: mouth [place] 00 daily. [facility] clopidogreL 2020-0 Yes [id number] 75mg Take 1 Univers 75 mg 2-28 tablet by ity of tablet 00:00: mouth [place] 00 daily. [facility] clopidogreL 2020-0 Yes [id number] 75mg Take 1 Univers 75 mg 2-28 tablet by ity of tablet 00:00: mouth [place] 00 daily. [facility] clopidogreL 2020-0 Yes [id number] 75mg Take 1 Univers 75 mg 2-28 tablet by ity of tablet 00:00: mouth [place] 00 daily. [facility] clopidogreL 2020-0 2020- No [id number] 75mg Take 1 Univers 75 mg 2-28 09-16 tablet by ity of tablet 00:00: 00:00 mouth [place] 00 :00 daily. [facility] Branch insulin NPH 2020-0 Yes 14U 14 Units, U nivers (HUMULIN N) 07-18 Subcutaneo it y of injection 23:00: us, QPM, [place] 14 Units 00 First dose Medic al on [place] Branch 07/18/19 at 1700, Until Discontinu ed, Routine perflutren 2020-0 2020- No IV Push, [place] protein-A 07-1827 TITRATE - ity of microsphr 19:11: 19:11 FOR [place] (OPTISON) 16 :16 PROCEDURE Medic al injection USE, 1 Branch dose, Starting [facility] 07/18/19 at 1311, Until [facility] 07/18/19 at 1311, Routine amLODIPine 2020-0 2020- No 5mg Take 5 mg U nivers 5 mg tablet 07-18 by mouth ity of 17:41: 00:00 daily. [place] 39 :00 Medical [place] ibuprofen 2020-0 2020- No 600mg Take 600 [place] 600 mg 07-18 mg by ity of tablet 17:41: 00:00 mouth 3 [place] 39 :00 (three) Medical times [place] daily with meals. dicyclomine 2020-0 Yes 10mg 10 mg, Univ ers (BENTYL) 07-18 Oral, QID, ity o f capsule 10 16:00: First dose [place] mg 00 on [facility] 07/18/19 at Branch 1000, Until Discontinu ed, Routine magnesium 2020-0 2020- No 296mL 296 mL, Uni vers citrate 07-18 Oral, ity of solution 15:17: 16:50 ONCE, 1 [place] 296 mL 00 :00 dose, [facility] 07/18/19 at Branch 0930, PIERRE pantoprazol 2020-0 Yes 40mg 40 mg, Univ ers e 07-18 Oral, ity of (PROTONIX) 15:00: DAILY, [place] EC tablet 00 First dose Medi uriel 40 mg on [facility] 07/18/19 at 0900, Until Discontinu ed, Routine insulin NPH 2020-0 Yes 16U 16 Units, U nivers (HUMULIN N) 07-18 Subcutaneo it y of injection 15:00: us, QAM, [place] 16 Units 00 First dose Medic al on [facility] 07/18/19 at 0900, Until Discontinu ed, Routine aspirin 2020-0 Yes 81mg 81 mg, Univers chewable 07-18 Oral, ity of tablet 81 15:00: DAILY, [place] mg 00 First dose Medical on [facility] 07/18/19 at 0900, Until Discontinu ed, Routine venlafaxine 2020-0 Yes 75mg 75 mg, Univ ers (EFFEXOR) 07-18 Oral, BID, ity of tablet 75 14:00: First dose [place] mg 00 on [facility] 07/18/19 at Branch 0800, Until Discontinu ed, Routine ticagrelor 2020-0 2020- No 90mg 90 mg, Univ ers (BRILINTA) 07-18 Oral, BID, it y of tablet 90 14:00: 23:22 First dose [place] mg 00 :37 on [facility] Medical 07/18/19 at Branch 0800, Until Discontinu ed, Routine metoclopram 2020-0 Yes 10mg 10 mg, Univ ers dora HCl 07-18 Oral, AC, ity of (REGLAN) 13:30: First dose Juan J as tablet 10 00 on [facility] mg 07/18/19 at Branch 0730, Until Discontinu ed, Routine levothyroxi 2020-0 Yes 50ug 50 mcg, Uni vers ne 07-18 Oral, ity of (SYNTHROID) 12:00: QAM-0600, [place] tablet 50 00 First dose Medi uriel mcg on [place] Branch 07/18/19 at 0600, Until Discontinu ed, Routine iohexol 2019-0 2020- No 120mL 120 mL, Unive rs (OMNIPAQUE 07-18 Intravenou it y of 350 12:00: 11:50 s, ONCE, 1 [place] BULK-150 00 :00 dose, [facility] l mL) 07/18/19 at Branch injection 0600, 120 mL Routine heparin 2020-0 2020- No 12U/kg/ 12 Univer s 25,000 07-18 h Units/kg/h ity of unit/250 mL 10:30: 23:24 r ?77.1 kg [place] (Premixed 00 :37 (9.252 Medical Bag) in D5W mL/hr, Branch weight rounded to based 9.25 dosing ACS mL/hr), IV protocol Infusion, CONTINUOUS , Starting Annie 07/18/19 at 0430, Until [facility] 07/18/19 at 1724 Sliding 2020-0 Yes Subcutaneo Univ ers Scale - us, Q4H, ity of Insulin - 10:15: First dose [place] Aspart 00 on [facility] (NOVOLOG) + 07/18/19 at [place] Fsbg 0415, Testing Until Discontinu ed, Routine dextrose 2020-0 Yes 250mL 250 mL, IV Un [facility] 10% (D10W) 07-18 Infusion, ity of bolus 09:59: PRN - SEE [place] infusion 37 INSTRUCTIO Medic al 250 mL NS, BS<70, Branch Starting Annie 07/18/19 at 0359
De xtrose 10% 250 mL bag contains:& nbsp;10 gm = 100 mL 20 gm = 200 mL 25 gm = 250 mL (whole bag) The maximum rate at which dextrose can be infused without producing glycosuria is 0.5 g/kg/hour. &nbs p;BUD: If wrapper is open bag is good for 30 days at room temperatur e. <b r> glucagon 2020-0 Yes 1mg 1 mg, Univers (GLUCAGEN 07-18 Intramuscu ity of DIAGNOSTIC 09:59: lar, PRN, [place] KIT) 33 Starting Medical injection 1 [facility] Branch mg 07/18/19 at 0359, Until Discontinu ed, PIERRE, Blood Glucose < or = 70 mg/dL and patient is unable to swallow or has mental changes. heparin 2020-0 2020- No 4000U 4,000 Univers 1000 07-18 Units, IV ity of unit/mL 09:30: 10:30 Push, [place] injection 00 :00 ONCE, 1 Medical Soln 4,000 dose, Annie Bran ch Units 07/18/19 at 0330, Routine heparin 2020-0 Yes 3000U FOR Univers (1,000 07-18 REBOLUSING ity of unit/mL, 10 09:20: , Starting [place] mL vial) 50 [facility] Medical for 07/18/19 at Branch Rebolusing 0320, Until Discontinu ed, Routine
Dosing based on aPTT testing parameters (refer to continuous heparin drip order).
ticagrelor 2020-0 2020- No 90mg 90 mg, Univ ers (BRILINTA) 07-18 Oral, ONCE it y of tablet 90 09:19: 10:12 NOW, 1 [place] mg 00 :00 dose, [facility] Medical 07/18/19 at Branch 0330, PIERRE acetaminoph 2020-0 Yes 650mg 650 mg, Un char[facility] en 07-18 Oral, ity of (TYLENOL) 09:17: Q6HPRN, [place] tablet 650 08 Starting Medic al mg Annie Branch 07/18/19 at 0317, Until Discontinu ed, Routine, Pain (scale 1-3) FENTanyl PF 2019-0 2020- No 25ug 25 mcg, [facility] (SUBLIMAZE 07-18 Slow IV ity o f (PF)) 07:30: 06:30 Push, [place] injection 00 :00 ONCE, 1 Medical 25 mcg dose, Annei Branch 07/18/19 at 0130, STAT insulin 2019-0 2020- No 5U 5 Units, Unive rs regular 07-18 Subcutaneo ity o f human 06:45: 05:37 , ONCE, [place] (HUMULIN R) 00 :00 1 dose, Medic al injection 5 Annie Branch Units 07/18/19 at 0045, Routine nitroglycer 2019- 2020- No .4mg 0.4 mg, Un [place] in 07-18 Sublingual ity of (NITROSTAT) 06:15: 05:24 , ONCE, 1 [place] sublingual 00 :00 dose, [facility]iel tablet 0.4 07/18/19 at [facility] mg 0015, PIERRE morpHINE 2019-0 2020- No 4mg 4 mg, Slow Un char[facility] injection 4 07-18 IV Push, ity of mg 05:45: 04:41 ONCE, 1 [place] 00 :00 dose, [facility] Medical 07/17/19 at Branch 2345, STAT ticagrelor 2019-0 2020- No 90mg 90 mg, Univ ers (BRILINTA) 07-18 Oral, ONCE it y of tablet 90 05:00: 04:20 NOW, 1 [place] mg 00 :00 dose, [facility] Medical 07/17/19 at Branch 2300, Routine ondansetron 2019-0 2020- No 4mg 4 mg, Slow Univers (ZOFRAN 07-18 IV Push, ity of (PF)) 05:00: 04:08 ONCE, 1 [place] injection 4 00 :00 dose, Wed Med ical mg 07/17/19 at Branch 2300, PIERRE FENTanyl PF 2019-0 2020- No 50ug 50 mcg, Un [place] (SUBLIMAZE 07-18 Slow IV ity o f (PF)) 05:00: 04:07 Push, [place] injection 00 :00 ONCE, 1 Medical 50 mcg dose, Wed Branch 07/17/19 at 2300, Routine clopidogreL 2020-0 2020- No [id number] Take 4 Univers 75 mg 2-27 02-27 tablets by ity of tablet 00:00: 00:00 mouth [place] 00 :00 daily for Medical 1 day, Branch THEN 1 tablet daily for 30 days. venlafaxine 2020-0 Yes 75mg Take 75 mg Univers 75 mg 2-06 by mouth 2 ity of tablet 00:37: (two) [place] 50 times Medical daily. Branch levothyroxi 2020-0 Yes 50ug Take 50 Uni vers ne 50 mcg 2-06 mcg by ity of tablet 00:37: mouth [place] 50 every Medical morning. Branch metoclopram 2020-0 Yes 10mg Take 10 mg Univers dora HCl 10 2-06 by mouth ity o f mg tablet 00:37: before [place] 50 meals. Medical Branch venlafaxine 2020-0 Yes 75mg Take 75 mg Univers 75 mg 2-06 by mouth 2 ity of tablet 00:37: (two) [place] 50 times Medical daily. Branch levothyroxi 2020-0 Yes 50ug Take 50 Uni vers ne 50 mcg 2-06 mcg by ity of tablet 00:37: mouth [place] 50 every Medical morning. Branch metoclopram 2020-0 Yes 10mg Take 10 mg Univers dora HCl 10 2-06 by mouth ity o f mg tablet 00:37: before [place] 50 meals. Medical Branch venlafaxine 2020-0 Yes 75mg Take 75 mg Univers 75 mg 2-06 by mouth 2 ity of tablet 00:37: (two) [place] 50 times Medical daily. Branch levothyroxi 2020-0 Yes 50ug Take 50 Uni vers ne 50 mcg 2-06 mcg by ity of tablet 00:37: mouth [place] 50 every Medical morning. Branch metoclopram 2020-0 Yes 10mg Take 10 mg Univers dora HCl 10 2-06 by mouth ity o f mg tablet 00:37: before [place] 50 meals. Medical Branch venlafaxine 2020-0 Yes 75mg Take 75 mg Univers 75 mg 2-06 by mouth 2 ity of tablet 00:37: (two) [place] 50 times Medical daily. Branch levothyroxi 2020-0 Yes 50ug Take 50 Uni vers ne 50 mcg 2-06 mcg by ity of tablet 00:37: mouth [place] 50 every Medical morning. Branch metoclopram 2020-0 Yes 10mg Take 10 mg Univers dora HCl 10 2-06 by mouth ity o f mg tablet 00:37: before [place] 50 meals. Medical Branch venlafaxine 2020-0 Yes 75mg Take 75 mg Univers 75 mg 2-06 by mouth 2 ity of tablet 00:37: (two) [place] 50 times Medical daily. Branch levothyroxi 2020-0 Yes 50ug Take 50 Uni vers ne 50 mcg 2-06 mcg by ity of tablet 00:37: mouth [place] 50 every Medical morning. Branch metoclopram 2020-0 Yes 10mg Take 10 mg Univers dora HCl 10 2-06 by mouth ity o f mg tablet 00:37: before [place] 50 meals. Medical Branch venlafaxine 2020-0 Yes 75mg Take 75 mg Univers 75 mg 2-06 by mouth 2 ity of tablet 00:37: (two) [place] 50 times Medical daily. Branch levothyroxi 2020-0 Yes 50ug Take 50 Uni vers ne 50 mcg 2-06 mcg by ity of tablet 00:37: mouth [place] 50 every Medical morning. Branch metoclopram 2020-0 Yes 10mg Take 10 mg Univers dora HCl 10 2-06 by mouth ity o f mg tablet 00:37: before [place] 50 meals. Medical Branch apixaban 2020-0 2020- No 5mg 5 mg, Univers (ELIQUIS) 2- 02-05 Oral, ity of tablet 5 mg 22:15: 23:35 ONCE, 1 [place] 00 :00 dose, Wed Medical 06/26/19 at Branch 1615, Routine famotidine 2019-0 2020- No 20mg Take 20 mg Univers 20 mg 2-05 02-05 by mouth 2 ity of tablet 18:07: 00:00 (two) [place] 45 :00 times Medical daily. Branch lisinopril 2020-0 2020- No 2.5mg Take 2.5 U nivers 2.5 mg 2-05 02-05 mg by ity of tablet 18:07: 00:00 mouth [place] 45 :00 daily. Medical Branch pantoprazol 2020-0 Yes 40mg 40 mg, Univ ers e 2-05 Oral, ity of (PROTONIX) 16:30: DAILY, [place] EC tablet 00 First dose Medi uriel 40 mg on Wed Branch 06/26/19 at 1030, Until Discontinu ed, Routine KCL 2020-0 2020- No 40meq 40 mEq, Univers (KLOR-CON 06-26- Oral, ity of M20) tablet 12:30: 12:09 ONCE, 1 [place] 40 mEq 00 :00 dose, Mon Medical 06/26/19 at [place] 0630, Routine magnesium 2019-0 2020- No 4g 4 g, IV Univ ers sulfate in 06-26- Piggyback, it y of water 4 12:30: 15:20 ONCE, 1 [place] gram/50 mL 00 :00 dose, Mon Medi uriel (8 %) IV 06/26/19 at [place] Piggyback 4 0630, g Routine insulin NPH 2019-0 Yes 14U 14 Units, U nivers (HUMULIN N) 06-26 Subcutaneo it y of injection 03:00: us, QHS, [place] 14 Units 00 First dose Medic al on Mon [place] 06/25/19 at 2100, Until Discontinu ed, Routine NaCl 0.9% 2019-0 2020- No 250mL at [address] [place] [address] ers (NS) bolus 06-26- mL/hr, 250 it y of infusion 02:30: 01:32 mL, IV [place] 250 mL 00 :00 Infusion, Medical ONCE, 1 Branch dose, [facility] 06/25/19 at 2030, STAT atorvastati 2019-0 Yes [id number] 80mg Take 1 U nivers n 80 mg 2-05 tablet by ity of tablet 00:00: mouth at [place] [address] bedtime. Medical Branch ticagrelor 2019-0 Yes [id number] 90mg Take 1 [facility] [place] 90 mg 2-05 tablet by ity of tablet 00:00: mouth 2 [place] (two) Medical times Branch daily. apixaban 5 2020-0 Yes 1358 5mg Take 1 Unive rs mg tablet 2-05 tablet by ity o f 00:00: mouth 2 [place] (two) Medical times Branch daily. Indication s: atrial fibrillati on apixaban 5 2020-0 Yes 1358 5mg Take 1 Unive rs mg tablet 2-05 tablet by ity o f 00:00: mouth 2 [place] (two) Medical times Branch daily. Indication s: atrial fibrillati on aspirin 81 2020-0 Yes [id number] 81mg Take 1 [facility] [place] mg chewable 2-05 tablet by ity of tablet 00:00: mouth at [place] [address] bedtime. Medical Branch pantoprazol 2020-0 Yes [id number] 20mg Take 1 U nivers e 20 mg EC 2-05 tablet by ity of tablet 00:00: mouth 00 daily. Medical Branch atorvastati 2020-0 Yes [id number] 80mg Take 1 U nivers n 80 mg 2-05 tablet by ity of tablet 00:00: mouth at bedtime. Medical Branch ticagrelor 2020-0 Yes [id number] 90mg Take 1 [place] 90 mg 2-05 tablet by ity of tablet 00:00: mouth (two) Medical times Branch daily. apixaban 5 2020-0 Yes 1358 5mg Take 1 Unive rs mg tablet 2-05 tablet by ity o f 00:00: mouth (two) Medical times Branch daily. Indication s: atrial fibrillati on apixaban 5 2020-0 Yes 1358 5mg Take 1 Unive rs mg tablet 2-05 tablet by ity o f 00:00: mouth (two) Medical times Branch daily. Indication s: atrial fibrillati on aspirin 81 2020-0 Yes [id number] 81mg Take 1 [facility] [place] mg chewable 2-05 tablet by ity of tablet 00:00: mouth at bedtime. Medical Branch pantoprazol 2020-0 Yes [id number] 20mg Take 1 U nivers e 20 mg EC 2-05 tablet by ity of tablet 00:00: mouth 00 daily. Medical Branch atorvastati 2020-0 Yes [id number] 80mg Take 1 U nivers n 80 mg 2-05 tablet by ity of tablet 00:00: mouth at bedtime. Medical Branch ticagrelor 2020-0 Yes [id number] 90mg Take 1 [place] 90 mg 2-05 tablet by ity of tablet 00:00: mouth (two) Medical times Branch daily. apixaban 5 2020-0 Yes 1358 5mg Take 1 Unive rs mg tablet 2-05 tablet by ity o f 00:00: mouth (two) Medical times Branch daily. Indication s: atrial fibrillati on apixaban 5 2020-0 Yes 1358 5mg Take 1 Unive rs mg tablet 2-05 tablet by ity o f 00:00: mouth 2 (two) Medical times Branch daily. Indication s: atrial fibrillati on aspirin 81 2020-0 Yes [id number] 81mg Take 1 [facility] [place] mg chewable 2-05 tablet by ity of tablet 00:00: mouth at 00 bedtime. Medical Branch pantoprazol 2020-0 Yes [id number] 20mg Take 1 U nivers e 20 mg EC 2-05 tablet by ity of tablet 00:00: mouth 00 daily. Medical Branch atorvastati 2020-0 Yes [id number] 80mg Take 1 U nivers n 80 mg 2-05 tablet by ity of tablet 00:00: mouth at 00 bedtime. Medical Branch ticagrelor 2020-0 Yes [id number] 90mg Take 1 [place] 90 mg 2-05 tablet by ity of tablet 00:00: mouth (two) Medical times Branch daily. apixaban 5 2020-0 Yes 1358 5mg Take 1 Unive rs mg tablet 2-05 tablet by ity o f 00:00: mouth (two) Medical times Branch daily. Indication s: atrial fibrillati on apixaban 5 2020-0 Yes 1358 5mg Take 1 Unive rs mg tablet 2-05 tablet by ity o f 00:00: mouth (two) Medical times Branch daily. Indication s: atrial fibrillati on aspirin 81 2020-0 Yes [id number] 81mg Take 1 [facility] [place] mg chewable 2-05 tablet by ity of tablet 00:00: mouth at bedtime. Medical Branch pantoprazol 2020-0 Yes [id number] 20mg Take 1 U nivers e 20 mg EC 2-05 tablet by ity of tablet 00:00: mouth daily. Medical Branch atorvastati 2020-0 Yes [id number] 80mg Take 1 U nivers n 80 mg 2-05 tablet by ity of tablet 00:00: mouth at bedtime. Medical Branch ticagrelor 2020-0 Yes [id number] 90mg Take 1 [place] 90 mg 2-05 tablet by ity of tablet 00:00: mouth 2 (two) Medical times Branch daily. apixaban 5 2020-0 Yes 1358 5mg Take 1 Unive rs mg tablet 2-05 tablet by ity o f 00:00: mouth 2 (two) Medical times Branch daily. Indication s: atrial fibrillati on apixaban 5 2020-0 Yes 1358 5mg Take 1 Unive rs mg tablet 2-05 tablet by ity o f 00:00: mouth 2 (two) Medical times Branch daily. Indication s: atrial fibrillati on aspirin 81 2020-0 Yes [id number] 81mg Take 1 [facility] [place] mg chewable 2-05 tablet by ity of tablet 00:00: mouth at [place] 00 bedtime. Medical Branch pantoprazol 2020-0 Yes [id number] 20mg Take 1 U nivers e 20 mg EC 2-05 tablet by ity of tablet 00:00: mouth 00 daily. Medical Branch atorvastati 2020-0 Yes [id number] 80mg Take 1 U nivers n 80 mg 2-05 tablet by ity of tablet 00:00: mouth at [place] bedtime. Medical Branch apixaban 5 2020-0 Yes 1358 5mg Take 1 Unive rs mg tablet 2-05 tablet by ity o f 00:00: mouth 2 (two) Medical times Branch daily. Indication s: atrial fibrillati on aspirin 81 2020-0 Yes [id number] 81mg Take 1 [facility] [place] mg chewable 2-05 tablet by ity of tablet 00:00: mouth at [place] bedtime. Medical Branch pantoprazol 2020-0 Yes [id number] 20mg Take 1 U nivers e 20 mg EC 2-05 tablet by ity of tablet 00:00: mouth 00 daily. Medical Branch atorvastati 2019-0 Yes [id number] 80mg Take 1 U nivers n 80 mg 2-05 tablet by ity of tablet 00:00: mouth at [place] bedtime. Medical Branch apixaban 5 2020-0 Yes 1358 5mg Take 1 Unive rs mg tablet 2-05 tablet by ity o f 00:00: mouth 2 (two) Medical times Branch daily. Indication s: atrial fibrillati on aspirin 81 2020-0 Yes [id number] 81mg Take 1 Un [place] mg chewable 2-05 tablet by ity of tablet 00:00: mouth at [place] 00 bedtime. Medical Branch pantoprazol 2020-0 Yes [id number] 20mg Take 1 U nivers e 20 mg EC 2-05 tablet by ity of tablet 00:00: mouth 00 daily. Medical Branch atorvastati 2020-0 Yes [id number] 80mg Take 1 U nivers n 80 mg 2-05 tablet by ity of tablet 00:00: mouth at [place] bedtime. Medical Branch apixaban 5 2020-0 Yes 1358 5mg Take 1 Unive rs mg tablet 2-05 tablet by ity o f 00:00: mouth 2 [place] (two) Medical times Branch daily. Indication s: atrial fibrillati on aspirin 81 2020-0 Yes [id number] 81mg Take 1 [facility] [place] mg chewable 2-05 tablet by ity of tablet 00:00: mouth at [place] 00 bedtime. Medical Branch pantoprazol 2020-0 Yes [id number] 20mg Take 1 U nivers e 20 mg EC 2-05 tablet by ity of tablet 00:00: mouth [place] 00 daily. Medical Branch atorvastati 2020-0 Yes [id number] 80mg Take 1 U nivers n 80 mg 2-05 tablet by ity of tablet 00:00: mouth at [place] [address] bedtime. Medical Branch apixaban 5 2020-0 Yes 1358 5mg Take 1 Unive rs mg tablet 2-05 tablet by ity o f 00:00: mouth 2 [place] (two) Medical times Branch daily. Indication s: atrial fibrillati on aspirin 81 2020-0 Yes [id number] 81mg Take 1 [facility] [place] mg chewable 2-05 tablet by ity of tablet 00:00: mouth at [place] [address] bedtime. Medical Branch pantoprazol 2020-0 Yes [id number] 20mg Take 1 U nivers e 20 mg EC 2-05 tablet by ity of tablet 00:00: mouth [place] daily. Medical Branch atorvastati 2020-0 Yes [id number] 80mg Take 1 U nivers n 80 mg 2-05 tablet by ity of tablet 00:00: mouth at [place] bedtime. Medical Branch apixaban 5 2020-0 Yes 1358 5mg Take 1 Unive rs mg tablet 2-05 tablet by ity o f 00:00: mouth 2 [place] (two) Medical times Branch daily. Indication s: atrial fibrillati on aspirin 81 2020-0 Yes [id number] 81mg Take 1 [facility] [place] mg chewable 2-05 tablet by ity of tablet 00:00: mouth at [place] [address] bedtime. Medical Branch atorvastati 2020-0 Yes [id number] 80mg Take 1 U nivers n 80 mg 2-05 tablet by ity of tablet 00:00: mouth at [place] bedtime. Medical Branch apixaban 5 2020-0 Yes 1358 5mg Take 1 Unive rs mg tablet 2-05 tablet by ity o f 00:00: mouth 2 (two) Medical times Branch daily. Indication s: atrial fibrillati on aspirin 81 2020-0 Yes [id number] 81mg Take 1 [facility] [place] mg chewable 2-05 tablet by ity of tablet 00:00: mouth at [place] bedtime. Medical Branch atorvastati 2020-0 Yes [id number] 80mg Take 1 U nivers n 80 mg 2-05 tablet by ity of tablet 00:00: mouth at [place] bedtime. Medical Branch apixaban 5 2020-0 Yes 1358 5mg Take 1 Unive rs mg tablet 2-05 tablet by ity o f 00:00: mouth 2 (two) Medical times Branch daily. Indication s: atrial fibrillati on aspirin 81 2020-0 Yes [id number] 81mg Take 1 [facility] [place] mg chewable 2-05 tablet by ity of tablet 00:00: mouth at [place] bedtime. Medical Branch atorvastati 2020-0 Yes [id number] 80mg Take 1 U nivers n 80 mg 2-05 tablet by ity of tablet 00:00: mouth at [place] bedtime. Medical Branch apixaban 5 2020-0 Yes 1358 5mg Take 1 Unive rs mg tablet 2-05 tablet by ity o f 00:00: mouth 2 (two) Medical times Branch daily. Indication s: atrial fibrillati on aspirin 81 2020-0 Yes [id number] 81mg Take 1 Un [place] mg chewable 2-05 tablet by ity of tablet 00:00: mouth at [place] bedtime. Medical Branch atorvastati 2020-0 Yes [id number] 80mg Take 1 U nivers n 80 mg 2-05 tablet by ity of tablet 00:00: mouth at [place] bedtime. Medical Branch apixaban 5 2020-0 Yes 1358 5mg Take 1 Unive rs mg tablet 2-05 tablet by ity o f 00:00: mouth 2 (two) Medical times Branch daily. Indication s: atrial fibrillati on aspirin 81 2020-0 Yes [id number] 81mg Take 1 [place] mg chewable 2-05 tablet by ity of tablet 00:00: mouth at bedtime. Medical Branch atorvastati 2020-0 Yes [id number] 80mg Take 1 U nivers n 80 mg 2-05 tablet by ity of tablet 00:00: mouth at [place] bedtime. Medical Branch apixaban 5 2020-0 Yes 1358 5mg Take 1 Unive rs mg tablet 2-05 tablet by ity o f 00:00: mouth 2 (two) Medical times Branch daily. Indication s: atrial fibrillati on aspirin 81 2020-0 Yes [id number] 81mg Take 1 Un [place] mg chewable 2-05 tablet by ity of tablet 00:00: mouth at [place] bedtime. Medical Branch atorvastati 2020-0 Yes [id number] 80mg Take 1 U nivers n 80 mg 2-05 tablet by ity of tablet 00:00: mouth at [place] bedtime. Medical Branch apixaban 5 2020-0 Yes 1358 5mg Take 1 Unive rs mg tablet 2-05 tablet by ity o f 00:00: mouth 2 (two) Medical times Branch daily. Indication s: atrial fibrillati on aspirin 81 2020-0 Yes [id number] 81mg Take 1 [facility] [place] mg chewable 2-05 tablet by ity of tablet 00:00: mouth at [place] bedtime. Medical Branch atorvastati 2020-0 Yes [id number] 80mg Take 1 U nivers n 80 mg 2-05 tablet by ity of tablet 00:00: mouth at [place] bedtime. Medical Branch apixaban 5 2020-0 Yes 1358 5mg Take 1 Unive rs mg tablet 2-05 tablet by ity o f 00:00: mouth 2 (two) Medical times Branch daily. Indication s: atrial fibrillati on aspirin 81 2020-0 Yes [id number] 81mg Take 1 [facility] [place] mg chewable 2-05 tablet by ity of tablet 00:00: mouth at [place] bedtime. Medical Branch atorvastati 2020-0 Yes [id number] 80mg Take 1 U nivers n 80 mg 2-05 tablet by ity of tablet 00:00: mouth at [place] bedtime. Medical Branch apixaban 5 2020-0 Yes 1358 5mg Take 1 Unive rs mg tablet 2-05 tablet by ity o f 00:00: mouth 2 (two) Medical times Branch daily. Indication s: atrial fibrillati on atorvastati 2020-0 Yes [id number] 80mg Take 1 U nivers n 80 mg 2-05 tablet by ity of tablet 00:00: mouth at [place] 00 bedtime. Medical Branch apixaban 5 2020-0 Yes 1358 5mg Take 1 Unive rs mg tablet 2-05 tablet by ity o f 00:00: mouth 2 (two) Medical times Branch daily. Indication s: atrial fibrillati on atorvastati 2020-0 Yes [id number] 80mg Take 1 U nivers n 80 mg 2-05 tablet by ity of tablet 00:00: mouth at 00 bedtime. Medical Branch apixaban 5 2020-0 Yes 1358 5mg Take 1 Unive rs mg tablet 2-05 tablet by ity o f 00:00: mouth 2 (two) Medical times Branch daily. Indication s: atrial fibrillati on atorvastati 2020-0 Yes [id number] 80mg Take 1 U nivers n 80 mg 2-05 tablet by ity of tablet 00:00: mouth at 00 bedtime. Medical Branch apixaban 5 2020-0 Yes 1358 5mg Take 1 Unive rs mg tablet 2-05 tablet by ity o f 00:00: mouth 2 (two) Medical times Branch daily. Indication s: atrial fibrillati on atorvastati 2020-0 Yes [id number] 80mg Take 1 U nivers n 80 mg 2-05 tablet by ity of tablet 00:00: mouth at 00 bedtime. Medical Branch ticagrelor 2020-0 Yes [id number] 90mg Take 1 [place] 90 mg 2-05 tablet by ity of tablet 00:00: mouth 2 (two) Medical times Branch daily. apixaban 5 2020-0 Yes 1358 5mg Take 1 Unive rs mg tablet 2-05 tablet by ity o f 00:00: mouth 2 (two) Medical times Branch daily. Indication s: atrial fibrillati on apixaban 5 2020-0 Yes 1358 5mg Take 1 Unive rs mg tablet 2-05 tablet by ity o f 00:00: mouth 2 (two) Medical times Branch daily. Indication s: atrial fibrillati on aspirin 81 2020-0 Yes [id number] 81mg Take 1 [facility] [place] mg chewable 2-05 tablet by ity of tablet 00:00: mouth at [place] 00 bedtime. Medical Branch pantoprazol 2020-0 Yes [id number] 20mg Take 1 U nivers e 20 mg EC 2-05 tablet by ity of tablet 00:00: mouth [place] 00 daily. Medical Branch atorvastati 2019-0 2020- No [id number] 80mg Take 1 Univers n 80 mg 06-26 tablet by ity of tablet 00:00: 00:00 mouth at [place] 00 :00 bedtime. Medical Branch apixaban 5 2019-0 2020- No 1358 5mg Take 1 Univ ers mg tablet 06-26 tablet by ity of 00:00: 00:00 mouth 2 [place] 00 :00 (two) Medical times Branch daily. Indication s: atrial fibrillati on aspirin 81 2019- 2020- No [id number] 81mg Take 1 U nivers mg chewable 06-26 tablet by it y of tablet 00:00: 00:00 mouth at [place] 00 :00 bedtime. Medical Branch pantoprazol 2019-0 2019- No [id number] 20mg Take 1 Univers e 20 mg EC 06-26 tablet by ity of tablet 00:00: 00:00 mouth [place] 00 :00 daily. Medical Branch ticagrelor 2019-0 2020- No [id number] 90mg Take 1 U nivers 90 mg 06-26 tablet by ity of tablet 00:00: 00:00 mouth 2 [place] 00 :00 (two) Medical times Branch daily. apixaban 5 2019-0 2019- No 1358 5mg Take 1 Univ ers mg tablet 06-26 tablet by ity of 00:00: 00:00 mouth 2 [place] 00 :00 (two) Medical times Branch daily. Indication s: atrial fibrillati on aspirin 81 2019-0 2020- No [id number] 81mg Take 1 U nivers mg chewable -09 20-05 tablet by it y of tablet 00:00: 00:00 mouth at [place] 00 :00 bedtime. Medical Branch pantoprazol 2019-0 2020- No [id number] 20mg Take 1 Univers e 20 mg EC 2-09 20-05 tablet by ity of tablet 00:00: 00:00 mouth [place] 00 :00 daily for Medical 60 days. Branch ticagrelor 2020-0 2020- No [id number] 90mg Take 1 U nivers 90 mg 06-26 tablet by ity of tablet 00:00: 00:00 mouth 2 [place] 00 :00 (two) Medical times Branch daily. atorvastati 2019- No [id number] 80mg Take 1 Univers n 80 mg 06-26 tablet by ity of tablet 00:00: 00:00 mouth at [place] 00 :00 bedtime. Medical Branch apixaban 5 2019- No 1358 5mg Take 1 Univ ers mg tablet 06-26- tablet by ity of 00:00: 00:00 mouth 2 [place] 00 :00 (two) Medical times Branch daily for 30 days. Indication s: atrial fibrillati on apixaban 5 2019- No 1358 5mg Take 1 Univ ers mg tablet 06-26- tablet by ity of 00:00: 00:00 mouth 2 [place] 00 :00 (two) Medical times Branch daily. Indication s: atrial fibrillati on FENTanyl PF 2019- No Slow IV Un [place] (SUBLIMAZE 06-25 Push, ity of (PF)) 20:27: 20:27 TITRATE - [place] injection 50 :50 FOR Medical PROCEDURE Branch USE, 1 dose, Starting 2/4/20 at 1427, Until 2/4/20 at 1427, Routine adenosine 6 2019- No Intra-chandan Univers mg/1000 mL 06-25 rial, ity of INTRACORONA 20:14: 20:14 TITRATE - [place] RY 40 :40 FOR Medical injection PROCEDURE Branc h for CATH USE, 1 LAB dose, Starting 2/4/20 at 1414, Until 2/4/20 at 1414, Routine FENTanyl PF 2019-2019- No Slow IV Un [place] (SUBLIMAZE 06-25 Push, ity of (PF)) 19:55: 19:55 TITRATE - [place] injection 00 :00 FOR Medical PROCEDURE Branch USE, 1 dose, Starting 2/4/20 at 1355, Until 2/4/20 at 1355, Routine midazolam 2019-2019- No IV Push, Uni vers (VERSED) 06-25 TITRATE - ity o f injection 19:55: 19:55 FOR [place] 00 :00 PROCEDURE Medical USE, 1 Branch dose, Starting Tue 20 at 1355, Until Tue 20 at 1355, Routine heparin 2019-2019- No Slow IV Univer s 1,000 06-25 Push, ity of unit/mL 19:02: 19:02 TITRATE - [place] injection 31 :31 FOR Medical PROCEDURE Branch USE, 1 dose, Starting 06/25/19 at 1302, Until Tue 20 at 1302, Routine phenylephri 2019- No Intravenou Univers ne 1 mg/10 06-25 s, TITRATE it y of mL in NS 18:43: 18:43 - FOR [place] syringe 51 :51 PROCEDURE Medical USE, 1 Branch dose, Starting 06/25/19 at 1243, Until 06/25/19 at 1243, Routine NaCl 0.9% 2019- No IV Univers (NS) bolus 06-25 Piggyback, it y of infusion 18:43: 20:15 CONTINUOUS [place] 40 :56 PRN, Medical Starting Branch 06/25/19 at 1243, Until Discontinu ed, STAT FENTanyl PF 2019- No Slow IV Un [place] (SUBLIMAZE 06-25 Push, ity of (PF)) 18:34: 18:34 TITRATE - [place] injection 58 :58 FOR Medical PROCEDURE Branch USE, 1 dose, Starting 06/25/19 at 1234, Until Tue 20 at 1234, Routine nitroglycer 2019- No Intravenou Univers in (TRIDIL) 06-25 s, TITRATE i ty of 2 mg in 10 18:34: 18:34 - FOR [place] mL D5W for 53 :53 PROCEDURE Medi uriel Cardiac USE, 1 Branch Cath dose, Starting Tue 20 at 1234, Until Tue 20 at 1234, Routine heparin 0 2020- No Slow IV Univer s 1,000 06-25 Push, ity of unit/mL 18:34: 18:34 TITRATE - [place] injection 37 :37 FOR Medical PROCEDURE Branch USE, 1 dose, Starting 2/4/20 at 1234, Until 2/4/20 at 1234, Routine verapamil 2020-0 2020- No Intra-chandan U nivers (ISOPTIN) 06-2504 rial, ity of injection 18:34: 18:34 TITRATE - [place] 27 :27 FOR Medical PROCEDURE Branch USE, 1 dose, Starting 2/4/20 at 1234, Until 2/4/20 at 1234, Routine FENTanyl PF 2019-0 2020- No Slow IV Un [place] (SUBLIMAZE 06-2504 Push, ity of (PF)) 18:31: 18:31 TITRATE - [place] injection 44 :44 FOR Medical PROCEDURE Branch USE, 1 dose, Starting 2/4/20 at 1231, Until 2/4/20 at 1231, Routine midazolam 0 2020- No IV Push, Uni vers (VERSED) 06-25 TITRATE - ity o f injection 18:31: 18:31 FOR [place] 39 :39 PROCEDURE Medical USE, 1 Branch dose, Starting 2/4/20 at 1231, Until 2/4/20 at 1231, Routine lidocaine 0 2020- No Infiltrati U nivers 1% (PF) 06-2504 on, ity of (XYLOCAINE) 18:31: 18:31 TITRATE - [place] injection 04 :04 FOR Medical PROCEDURE Branch USE, 1 dose, Starting 2/4/20 at 1231, Until 2/4/20 at 1231, Routine FENTanyl PF 0 2019- No Slow IV [place] (SUBLIMAZE 06-25 Push, ity of (PF)) 18:15: 18:15 TITRATE - [place] injection 00 :00 FOR Medical PROCEDURE Branch USE, 1 dose, Starting 2/4/20 at 1215, Until 2/4/20 at 1215, Routine midazolam 2019-0 2020- No IV Push, Uni vers (VERSED) 06-25 TITRATE - ity o f injection 18:15: 18:15 FOR [place] 00 :00 PROCEDURE Medical USE, 1 Branch dose, Starting 2/4/20 at 1215, Until 2/4/20 at 1215, Routine insulin NPH Yes 16U 16 Units, U nivers (HUMULIN N) 2-04 Subcutaneo it y of injection 15:00: us, QAM, [place] 16 Units 00 First dose Medic al on Mon06/25/19 at 0900, Until Discontinu ed, Routine perflutren 2020-0 2020- No 3mL 3 mL, IV [place] protein-A 06-25- Push, ity of microsphr 15:00: 14:50 ONCE, 1 [place] (OPTISON) 00 :00 dose, Mon Medic al injection 3 06/25/19 at [facility] mL 0900, Routine insulin 2020-0 Yes 6U 6 Units, Univer s regular 2-04 Subcutaneo ity of human 14:00: us, BID [place] (HUMULIN R) 00 MEALS, Medica l injection 6 First dose Br anch Units on Mon06/25/19 at 0800, Until Discontinu ed, Routine KCL 2020-0 2020- No 40meq 40 mEq, Univers (KLOR-CON 06-25 Oral, Q4H, ity of M20) tablet 14:00: 21:59 2 doses, [place] 40 mEq 00 :00 First dose Medical on Mon06/25/19 at 0800, Last dose on Mon06/25/19 at 1200, Routine metoclopram 2020-0 Yes 10mg 10 mg, Univ ers dora HCl 04 Oral, AC, ity of (REGLAN) 13:30: First dose [place] tablet 10 00 on Mon Medical mg 06/25/19 at Branch 0730, Until Discontinu ed, Routine magnesium 2020-0 2020- No 2g 2 g, IV Univ ers sulfate in 06-25- Piggyback, it y of water 2 12:15: 11:35 ONCE, 1 [place] gram/50 mL 00 :00 dose, Mon Medi uriel (4 %) 06/25/19 at Branch infusion 2 0615, g Routine levothyroxi 2020-0 Yes 50ug 50 mcg, Uni vers ne 04 Oral, ity of (SYNTHROID) 12:00: QAM-0600, [place] tablet 50 00 First dose Medi uriel mcg on 06/25/19 at 0600, Until Discontinu ed, Routine lactated 2020-0 2020- No 1000mL at 100 Univ ers ringers IV 2-04 02-04 mL/hr, ity of infusion 07:15: 07:38 1,000 mL, [place] 1,000 mL 00 :00 IV Medical Infusion, [place] ONCE, 1 dose, [facility] 06/25/19 at 0115, Routine heparin 2019-0 2020- No 12U/kg/ 12 Univer s 25,000 2-04 02-05 h Units/kg/h ity of unit/250 mL 03:30: 22:00 r ?77.1 kg [place] (Premixed 00 :04 (9.252 Medical Bag) in D5W mL/hr, [place] weight rounded to based 9.25 dosing ACS mL/hr), IV protocol Infusion, CONTINUOUS , Starting Mon06/24/19 at 2130, Until Mon06/26/19 at 1600 Sliding 2020-0 Yes Subcutaneo Univ ers Scale 2-04 us, TID ity of Insulin - 03:00: MEALS+HS, [place] Aspart 00 First dose Medical (NOVOLOG) + on Mon [place] [facility] 06/24/19 at Testing 2100, Until Discontinu ed, Routine aspirin 2020-0 Yes 81mg 81 mg, Univers chewable 2-04 Oral, QHS, ity o f tablet 81 03:00: First dose [place] mg 00 on [facility] 06/24/19 at Branch 2100, Until Discontinu ed, Routine morpHINE 2019-0 2020- No 4mg 4 mg, Slow [place] injection 4 2-04 02-04 IV Push, ity of mg 03:00: 02:22 ONCE, 1 [place] 00 :00 dose, [facility] 06/24/19 at Branch 2100, STAT insulin NPH 2019-0 2020- No 14U 14 Units, Univers (HUMULIN N) 2-04 02-04 Subcutaneo i ty of injection 03:00: 04:55 us, [place] 14 Units 00 :24 QAM+HS, Medical First dose Branch on Mon06/24/19 at 2100, Until Discontinu ed, Routine heparin 2020-0 2020- No 4000U 4,000 Univers 1000 2-04 02-04 Units, IV ity of unit/mL 02:30: 03:00 Push, [place] injection 00 :00 ONCE, 1 Medical Soln 4,000 dose, [facility] Bran ch Units 06/24/19 at 2030, Routine heparin 2020-0 Yes 3000U FOR Univers (1,000 2-04 REBOLUSING ity of unit/mL, 10 02:18: , Starting [place] mL vial) 09 [facility] 06/24/19 Medic al for at 2018, Branch Rebolusing Until Discontinu ed, Routine
Dosing based on aPTT testing parameters (refer to continuous heparin drip order).
venlafaxine 2020-0 Yes 75mg 75 mg, Univ ers (EFFEXOR) 2-04 Oral, BID, ity of tablet 75 02:00: First dose [place] mg 00 on [facility] 06/24/19 at [place] 1999, Until Discontinu ed, Routine ticagrelor 2020-0 Yes 90mg 90 mg, Unive rs (BRILINTA) 2-04 Oral, BID, ity of tablet 90 02:00: First dose [place] mg 00 on [facility] 06/24/19 at [place] 1999, Until Discontinu ed, Routine famotidine 2020-0 2020- No 20mg 20 mg, Univ ers (PEPCID AC) 2- 02-05 Oral, BID, i ty of tablet 20 02:00: 16:25 First dose [place] mg 00 :14 on [facility] 06/24/19 at [place] 1999, Until Discontinu ed, Routine morpHINE 2020-0 Yes 2mg 2 mg, Slow Uni vers injection 2 2-04 IV Push, ity of mg 01:49: Q4HPRN, [place] 53 Starting Medical [facility] 06/24/19 Branch at 1949, Until Discontinu ed, Routine, Chest pain, angina nitroglycer 2020-0 Yes .4mg 0.4 mg, Uni vers in 2-04 Sublingual ity of (NITROSTAT) 01:47: , Q5MIN [place] sublingual 48 PRN, Medical tablet 0.4 Starting Branc h mg [facility] 06/24/19 at 1947, Until Discontinu ed, Routine, Chest pain dextrose 2020-0 Yes 250mL 250 mL, IV [place] 10% (D10W) 2-04 Infusion, ity of bolus 01:46: PRN - SEE [place] infusion 53 INSTRUCTIO Medic al 250 mL NS, Branch hypoglycem ia, Starting [facility] 06/24/19 at 1946
De xtrose 10% 250 mL bag contains:& nbsp;10 gm = 100 mL 20 gm = 200 mL 25 gm = 250 mL (whole bag) The maximum rate at which dextrose can be infused without producing glycosuria is 0.5 g/kg/hour. &nbs p;BUD: If wrapper is open bag is good for 30 days at room temperatur e. <b r> glucagon 2020-0 Yes 1mg 1 mg, Univers (GLUCAGEN 2-04 Intramuscu ity of DIAGNOSTIC 01:46: lar, PRN, [place] KIT) 50 Starting Medical injection 1 Mon 06/24/19 Br anch mg at 1946, Until Discontinu ed, PIERRE, Blood Glucose < or = 70 mg/dL and patient is unable to swallow or has mental changes. ondansetron 2020-0 Yes 4mg 4 mg, Slow Univers (ZOFRAN 2-04 IV Push, ity of (PF)) 01:46: Q6HPRN, [place] injection 4 39 Starting Medi uriel mg 06/24/19 Branch at 194, Until Discontinu ed, Routine, Nausea and Vomiting (N/V) acetaminoph 2020-0 Yes 650mg 650 mg, [place] en 2-04 Oral, ity of (TYLENOL) 01:46: Q6HPRN, [place] tablet 650 29 Starting Medic al mg 06/24/19 Branch at 1946, Until Discontinu ed, Routine, Pain (scale 1-3) magnesium 2020-0 2020- No 1g 8 mEq (1 Uni vers sulfate 4 2-04 02-04 g), IV ity of mEq/mL (50 00:00: 00:00 Piggyback, [place] %) 00 :00 ONCE, 1 Medical injection 8 dose, Mon Bra nch mEq 06/24/19 at 1800, STAT ondansetron 2020-0 2020- No 4mg 4 mg, Slow Univers (ZOFRAN 2-03 02-03 IV Push, ity of (PF)) 22:30: 21:25 ONCE, 1 [place] injection 4 00 :00 dose, Mon Med ical mg 06/24/19 at Branch 1630, PIERRE morpHINE 2020-0 2020- No 4mg 4 mg, Slow [place] injection 4 2- 02-03 IV Push, ity of mg 22:30: 21:25 ONCE, 1 [place] 00 :00 dose, Mon Medical 06/24/19 at Branch 1630, STAT NaCl 0.9% 2020-0 2020- No 1000mL at 999 Uni vers (NS) bolus 2-03 02-03 mL/hr, ity of infusion 21:15: 22:42 1,000 mL, [place] 1,000 mL 00 :00 IV Medical Infusion, Branch ONCE, 1 dose, 06/24/19 at 1515, PIERRE insulin NPH 2018- Yes [id number] Inject SQ Univers 100 unit/mL 1-21 16u qam ity o f injection 00:00: and 14u [facility] insulin NPH 2018- Yes [id number] Inject SQ Univers 100 unit/mL 1-21 16u qam ity o f injection 00:00: and 14u [facility] insulin NPH 2018- Yes [id number] Inject SQ Univers 100 unit/mL 1-21 16u qam ity o f injection 00:00: and 14u [facility] insulin NPH 2018- Yes [id number] Inject SQ Univers 100 unit/mL 1-21 16u qam ity o f injection 00:00: and 14u [facility] insulin NPH 2018- Yes [id number] Inject SQ Univers 100 unit/mL 1-21 16u qam ity o f injection 00:00: and 14u [facility] insulin NPH 2018- Yes [id number] Inject SQ Univers 100 unit/mL 1-21 16u qam ity o f injection 00:00: and 14u [facility] insulin NPH 2018- Yes [id number] Inject SQ Univers 100 unit/mL 1-21 16u qam ity o f injection 00:00: and 14u [facility] insulin NPH 2018- Yes [id number] Inject SQ Univers 100 unit/mL 1-21 16u qam ity o f injection 00:00: and 14u [facility] insulin NPH 2018- Yes [id number] Inject SQ Univers 100 unit/mL 1-21 16u qam ity o f injection 00:00: and 14u [facility] insulin NPH 2018- Yes [id number] Inject SQ Univers 100 unit/mL 1-21 16u qam ity o f injection 00:00: and 14u [facility] Branch insulin NPH 2019- Yes [id number] Inject SQ Univers 100 unit/mL 1-21 16u qam ity o f injection 00:00: and 14u [facility] Branch insulin NPH 2019- Yes [id number] Inject SQ Univers 100 unit/mL 1-21 16u qam ity o f injection 00:00: and 14u [facility] Branch insulin NPH 2019- Yes [id number] Inject SQ Univers 100 unit/mL 1-21 16u qam ity o f injection 00:00: and 14u [facility] insulin NPH 2019- Yes [id number] Inject SQ Univers 100 unit/mL 1-21 16u qam ity o f injection 00:00: and 14u [facility] insulin NPH 2019- Yes [id number] Inject SQ Univers 100 unit/mL 1-21 16u qam ity o f injection 00:00: and 14u [facility] insulin NPH 2019- Yes [id number] Inject SQ Univers 100 unit/mL 1-21 16u qam ity o f injection 00:00: and 14u [facility] insulin NPH 2019- Yes [id number] Inject SQ Univers 100 unit/mL 1-21 16u qam ity o f injection 00:00: and 14u [facility] insulin NPH 2019- Yes [id number] Inject SQ Univers 100 unit/mL 1-21 16u qam ity o f injection 00:00: and 14u [facility] Branch insulin NPH 2019- Yes [id number] Inject SQ Univers 100 unit/mL 1-21 16u qam ity o f injection 00:00: and 14u [facility] Branch insulin NPH 2019- Yes [id number] Inject SQ Univers 100 unit/mL 1-21 16u qam ity o f injection 00:00: and 14u [facility] Branch insulin NPH 2019- Yes [id number] Inject SQ Univers 100 unit/mL 1-21 16u qam ity o f injection 00:00: and 14u [facility] Branch insulin NPH 2019- 2020- No [id number] Inject SQ Univers 100 unit/mL -21 07-02 16u qam ity of injection 00:00: 00:00 and 14u [place] 00 :00 qpm Medical Branch levoFLOXaci 2018-05 2020- No [id number] 500mg Take 1 Univers n 500 mg 06-11 [id number] tablet by ity of tablet 00:00: 00:00 mouth [place] 00 :00 every 24 Medical (twenty-fo Branch ur) hours. HYDROcodone 2018- Yes [id number] 1{tbl} Take 1 Univers -acetaminop 9-26 tablet by ity of hen (NORSureFire) 00:00: mouth [place] 5-325 mg 00 every 6 Medical tablet (six) Branch hours as needed for Pain (scale 7-10). HYDROcodone 2018- Yes [id number] 1{tbl} Take 1 Univers -acetaminop 9-26 tablet by ity of hen (NORCO) 00:00: mouth [place] 5-325 mg 00 every 6 Medical tablet (six) Branch hours as needed for Pain (scale 7-10). HYDROcodone 2018- Yes [id number] 1{tbl} Take 1 Univers -acetaminop 9-26 tablet by ity of hen (NORCO) 00:00: mouth [place] 5-325 mg 00 every 6 Medical tablet (six) Branch hours as needed for Pain (scale 7-10). HYDROcodone 2018- Yes [id number] 1{tbl} Take 1 Univers -acetaminop 9-26 tablet by ity of hen (NORCO) 00:00: mouth [place] 5-325 mg 00 every 6 Medical tablet (six) Branch hours as needed for Pain (scale 7-10). HYDROcodone 2018- Yes [id number] 1{tbl} Take 1 Univers -acetaminop 9-26 tablet by ity of hen (NORCO) 00:00: mouth [place] 5-325 mg 00 every 6 Medical tablet (six) Branch hours as needed for Pain (scale 7-10). HYDROcodone 2019- Yes [id number] 1{tbl} Take 1 Univers -acetaminop 9-26 tablet by ity of hen (NORCO) 00:00: mouth [place] 5-325 mg 00 every 6 Medical tablet (six) Branch hours as needed for Pain (scale 7-10). HYDROcodone 2020- No [id number] 1{tbl} Take 1 Univers -acetaminop 9-26 07-18 tablet by it y of hen (NORCO) 00:00: 00:00 mouth [place] 5-325 mg 00 :00 every 6 Medical tablet (six) Branch hours as needed for Pain (scale 7-10). aspirin 81 2020- No [id number] 81mg Take 1 Univers mg chewable 02-11 07 tablet by it y of tablet 00:00: 00:00 mouth at [place] 00 :00 bedtime. Medical Branch ondansetron 2019- No 4mg 4 mg, Slow Univers (ZOFRAN 02-06 IV Push, ity of (PF)) 01:15: 00:16 ONCE, 1 [place] injection 4 00 :00 dose, Tue Med ical mg 02/05/19 at Branch 2014, PIERRE morpHINE 2019- No 4mg 4 mg, Slow [place] injection 4 02-06 IV Push, ity of mg 01:15: 00:16 ONCE, 1 [place] 00 :00 dose, Tue Medical 02/05/19 at Branch 2014, STAT acetaminoph 2018- Yes [id number] 1{tbl} Take 1 Univers en-codeine 9-17 tablet by ity of 300-30 mg 00:00: mouth [place] tablet 00 every 4 Medical (four) Branch hours as needed for Pain (scale 4-6). acetaminoph Yes [id number] 1{tbl} Take 1 Univers en-codeine 9-17 tablet by ity of 300-30 mg 00:00: mouth [place] tablet 00 every 4 Medical (four) Branch hours as needed for Pain (scale 4-6). GABAPENTIN 2019- Yes 800mg Take 800 [place] ORAL 9-10 mg by ity of 19:55: mouth 2 [place] 30 (two) Medical times Branch daily. venlafaxine 2019- Yes 75mg Take 75 mg Univers 75 mg 9-10 by mouth 2 ity of tablet 19:55: (two) [place] 30 times Medical daily. Branch levothyroxi 2018- Yes 50ug Take 50 Uni vers ne 50 mcg 9-10 mcg by ity of tablet 19:55: mouth [place] 30 every Medical morning. Branch GABAPENTIN 2019- Yes 800mg Take 800 [place] ORAL 9-10 mg by ity of 19:55: mouth 2 [place] 30 (two) Medical times Branch daily. venlafaxine 2019-0 Yes 75mg Take 75 mg Univers 75 mg 9-10 by mouth 2 ity of tablet 19:55: (two) [place] 30 times Medical daily. Branch levothyroxi 2019-0 Yes 50ug Take 50 Uni vers ne 50 mcg 9-10 mcg by ity of tablet 19:55: mouth [place] 30 every Medical morning. Branch GABAPENTIN 2019- Yes 800mg Take 800 [place] ORAL 9-10 mg by ity of 19:55: mouth 2 [place] 30 (two) Medical times [place] daily. venlafaxine 2019-0 Yes 75mg Take 75 mg Univers 75 mg 9-10 by mouth 2 ity of tablet 19:55: (two) [place] 30 times Medical daily. Branch levothyroxi 2019-0 Yes 50ug Take 50 Uni vers ne 50 mcg 9-10 mcg by ity of tablet 19:55: mouth [place] 30 every Medical morning. Branch GABAPENTIN 2018- Yes 800mg Take 800 [place] ORAL 9-10 mg by ity of 19:55: mouth 2 [place] 30 (two) Medical times [place] daily. venlafaxine 2019-0 Yes 75mg Take 75 mg Univers 75 mg 9-10 by mouth 2 ity of tablet 19:55: (two) [place] 30 times Medical daily. Branch levothyroxi Yes 50ug Take 50 Uni vers ne 50 mcg 9-10 mcg by ity of tablet 19:55: mouth [place] 30 every Medical morning. [place] KCL 2019- No 40meq 40 mEq, Univers (KLOR-CON 9-10 09-10 Oral, ity of M20) tablet 12:15: 13:40 ONCE, 1 [place] 40 mEq 00 :00 dose, [facility] 01/29/19 at [place] 0730, Routine ticagrelor 2019-0 Yes 90mg 90 mg, Unive rs (BRILINTA) 9-10 Oral, BID, ity of tablet 90 01:00: First dose [place] mg 00 on Mon [facility] 01/28/19 at [place] 2000, Until Discontinu ed, Routine metoprolol 2019-0 Yes [id number] 25mg Take 1 Univers succinate 9-10 07 tablet by ity o f XL 25 mg 24 00:00: mouth 2 [place] [facility] [place] hr tablet 00 (two) Medical times [place] daily. aspirin 81 2019-0 Yes [id number] 81mg Take 1 Univers mg chewable 9-10 07 tablet by ity of tablet 00:00: mouth at [place] 00 bedtime. Medical Branch ticagrelor 2018- Yes [id number] 90mg Take 1 Univers 90 mg 9-10 07 tablet by ity of tablet 00:00: mouth 2 [place] 00 (two) Medical times Branch daily. metoprolol 2018- Yes [id number] 25mg Take 1 Univers succinate 9-10 07 tablet by ity o f XL 25 mg 24 00:00: mouth 2 [place] hr tablet 00 (two) Medical times Branch daily. aspirin 81 2018- Yes [id number] 81mg Take 1 Univers mg chewable 9-10 07 tablet by ity of tablet 00:00: mouth at [place] 00 bedtime. Medical Branch ticagrelor Yes [id number] 90mg Take 1 Univers 90 mg 9-10 07 tablet by ity of tablet 00:00: mouth 2 [place] 00 (two) Medical times Branch daily. metoprolol Yes [id number] 25mg Take 1 Univers succinate 9-10 07 tablet by ity o f XL 25 mg 24 00:00: mouth 2 [place] hr tablet 00 (two) Medical times Branch daily. aspirin 81 Yes [id number] 81mg Take 1 Univers mg chewable 9-10 07 tablet by ity of tablet 00:00: mouth at [place] 00 bedtime. Medical Branch ticagrelor Yes [id number] 90mg Take 1 Univers 90 mg 9-10 07 tablet by ity of tablet 00:00: mouth 2 [place] 00 (two) Medical times Branch daily. metoprolol 2018- Yes [id number] 25mg Take 1 Univers succinate 9-10 07 tablet by ity o f XL 25 mg 24 00:00: mouth 2 [place] hr tablet 00 (two) Medical times Branch daily. aspirin 81 2018- Yes [id number] 81mg Take 1 Univers mg chewable 9-10 07 tablet by ity of tablet 00:00: mouth at [place] 00 bedtime. Medical Branch ticagrelor Yes [id number] 90mg Take 1 Univers 90 mg 9-10 07 tablet by ity of tablet 00:00: mouth 2 [place] 00 (two) Medical times Branch daily. metoprolol 2020- No [id number] 25mg Take 1 Univers succinate 9-10 02-05 07 tablet by ity of XL 25 mg 24 00:00: 00:00 mouth 2 [place] hr tablet 00 :00 (two) Medical times Branch daily. ticagrelor 2020- No [id number] 90mg Take 1 Univers 90 mg 01-29 07 tablet by ity of tablet 00:00: 00:00 mouth 2 [place] 00 :00 (two) Medical times Branch daily. atorvastati 2019- No [id number] 80mg Take 1 Univers n 80 mg 9-10 12-10 100 tablet by ity of tablet 00:00: 05:59 mouth at [place] 00 :00 bedtime Medical for 90 Branch days. atorvastati 2019- No [id number] 80mg Take 1 Univers n 80 mg 9-10 12-10 100 tablet by ity of tablet 00:00: 05:59 mouth at [place] 00 :00 bedtime Medical for 90 Branch days. atorvastati 2019- No [id number] 80mg Take 1 Univers n 80 mg 9-10 12-10 100 tablet by ity of tablet 00:00: 05:59 mouth at [place] 00 :00 bedtime Medical for 90 Branch days. atorvastati 2019- No [id number] 80mg Take 1 Univers n 80 mg 9-10 12-10 100 tablet by ity of tablet 00:00: 05:59 mouth at [place] 00 :00 bedtime Medical for 90 Branch days. morpHINE 2019- No 2mg 2 mg, Slow [place] injection 2 01-28 IV Push, ity of mg 22:15: 21:14 ONCE, 1 [place] 00 :00 dose, [facility] Medical 01/28/19 at Branch 1715, Routine tirofiban 2019- No .15ug/k 0.15 Univ ers (AGGRASTAT) 01-28- g/min mcg/kg/min ity of 5 mg in 100 20:45: 23:22 ?82.1 kg [place] mL NS (RTU) 00 :13 (14.778 Medic al IV infusion mL/hr, Branch rounded to 14.78 mL/hr), IV Infusion, CONTINUOUS , Starting 01/28/19 at 1545, Until Mon01/28/19 at 1822 ticagrelor 2018- No Oral, Unive rs (BRILINTA) 01-28 TITRATE - ity of tablet 19:26: 19:26 FOR [place] 20 :20 PROCEDURE Medical USE, 1 Branch dose, Starting 01/28/19 at 1426, Until 01/28/19 at 1426, Routine tirofiban 2018- No IV Univers (AGGRASTAT) 01-28 Infusion, it y of 5 mg in 100 19:22: 19:22 CONTINUOUS [place] mL NS (RTU) 02 :02 PRN, Medical IV infusion Starting Bran ch 01/28/19 at 1422, Until 01/28/19 at 1422 tirofiban 2018- No Intravenou U nivers (AGGRASTAT 01-28 s, ity of CONCENTRATE 19:21: 19:21 CONTINUOUS [place] ) injection 42 :42 PRN, Medical Starting Branch 01/28/19 at 1421, Until 01/28/19 at 1421, Routine FENTanyl PF 2018- No Slow IV Un [place] (SUBLIMAZE 01-28 Push, ity of (PF)) 19:21: 19:21 TITRATE - [place] injection 29 :29 FOR Medical PROCEDURE Branch USE, 1 dose, Starting 01/28/19 at 1421, Until 01/28/19 at 1421, Routine heparin 2018- No Slow IV Univer s 1,000 01-28 Push, ity of unit/mL 19:01: 19:01 TITRATE - [place] injection 06 :06 FOR Medical PROCEDURE Branch USE, 1 dose, Starting 01/28/19 at 1401, Until 01/28/19 at 1401, Routine heparin 2018- No Slow IV Univer s 1,000 01-28 Push, ity of unit/mL 18:35: 18:35 TITRATE - [place] injection 00 :00 FOR Medical PROCEDURE Branch USE, 1 dose, Starting 01/28/19 at 1335, Until 01/28/19 at 1335, Routine NaCl 0.9% 2018- No IV Univers (NS) bolus 01-28 Piggyback, it y of infusion 18:31: 19:09 CONTINUOUS [place] 26 :53 PRN, Medical Starting Branch 01/28/19 at 1331, Until 01/28/19 at 1409, STAT heparin 2018- No Slow IV Univer s 1,000 01-28 Push, ity of unit/mL 17:44: 17:44 TITRATE - [place] injection 25 :25 FOR Medical PROCEDURE Branch USE, 1 dose, Starting 01/28/19 at 1244, Until 01/28/19 at 1244, Routine heparin 2018- No Slow IV Univer s 1,000 01-28 Push, ity of unit/mL 17:37: 17:37 TITRATE - [place] injection 54 :54 FOR Medical PROCEDURE Branch USE, 1 dose, Starting 01/28/19 at 1237, Until 01/28/19 at 1237, Routine lidocaine 2018- No Infiltrati U nivers 1% (PF) 01-28 on, ity of (XYLOCAINE) 17:27: 17:27 TITRATE - [place] injection 30 :30 FOR Medical PROCEDURE Branch USE, 1 dose, Starting 01/28/19 at 1227, Until 01/28/19 at 1227, Routine FENTanyl PF 2018- No Slow IV Un [place] (SUBLIMAZE 01-28 Push, ity of (PF)) 17:24: 17:24 TITRATE - [place] injection 22 :22 FOR Medical PROCEDURE Branch USE, 1 dose, Starting 01/28/19 at 1224, Until 01/28/19 at 1224, Routine midazolam 2018- No IV Push, Uni vers (VERSED) 01-28 TITRATE - ity o f injection 17:24: 17:24 FOR [place] 14 :14 PROCEDURE Medical USE, 1 Branch dose, Starting 01/28/19 at 1224, Until 01/28/19 at 1224, Routine FENTanyl PF 2018- No Slow IV [place] (SUBLIMAZE 01-28 Push, ity of (PF)) 16:47: 16:47 TITRATE - [place] injection 00 :00 FOR Medical PROCEDURE Branch USE, 1 dose, Starting 01/28/19 at 1147, Until 9/9/19 at 1147, Routine midazolam 2019- No IV Push, Uni vers (VERSED) 01-28 TITRATE - ity o f injection 16:47: 16:47 FOR [place] 00 :00 PROCEDURE Medical USE, 1 Branch dose, Starting 01/28/19 at 1147, Until 01/28/19 at 1147, Routine clopidogrel 2019- No Oral, PRN, Univers (PLAVIX) 01-28 Starting ity of tablet 16:32: 16:32 01/28/19 [place] 09 :09 at 1132, Medical Until [facility] Branch 01/28/19 at 1132, Routine NaCl 0.9% 2019- No 1000mL at 75 Univ ers (NS) IV 01-27 mL/hr, IV ity of infusion 14:30: 03:23 Infusion, [place] 1,000 mL 00 :00 ONCE, 1 Medical dose, [place] Branch 01/27/19 at 0930, Routine magnesium 2018- Yes 800mg 800 mg, Univ ers oxide 01-27 Oral, ity of (MAG-OX 14:00: DAILY, [place] 400) 40 00 First dose Medica l mg/mL oral on [facility] suspension 01/27/19 at 800 mg 0900, Until Discontinu ed, Routine proMETHazin 2019- No 25mg 25 mg, IV Univers e 01-26 Piggyback, ity of (PHENERGAN) 19:30: 19:43 ONCE NOW, [place] 25 mg in 00 :00 1 dose, Medical NaCl 0.9% Sat 01/26/19 Bran ch (NS) 50 mL at 1430, piggyback 50 mL aspirin 2018- Yes 81mg 81 mg, Univers chewable 01-26 Oral, QHS, ity o f tablet 81 02:00: First dose [place] mg 00 on Fri Medical 01/25/19 at Branch 2100, Until Discontinu ed, Routine atorvastati Yes 80mg 80 mg, Univ ers n (LIPITOR) 01-26 Oral, QHS, it y of tablet 80 02:00: First dose [place] mg 00 on Fri Medical 01/25/19 at Branch 2100, Until Discontinu ed, Routine clopidogrel 2019- No 75mg 75 mg, Uni vers (PLAVIX) 9-07 09-09 Oral, QHS, ity of tablet 75 02:00: 19:44 First dose [place] mg 00 :34 on Mon Medical 01/25/19 at Branch 2100, Until Discontinu ed, Routine insulin NPH Yes 12U 12 Units, U nivers (HUMULIN N) 01-25 Subcutaneo it y of injection 22:00: [place], QPM, [place] 12 Units 00 First dose Medic al on Mon Branch 01/25/19 at 1700, Until Discontinu ed, Routine clopidogrel 2019- No 600mg 600 mg, U nivers (PLAVIX) 01-25 Oral, ity of tablet 600 15:04: 15:31 ONCE, 1 [place] mg 00 :00 dose, [facility] Medical 01/25/19 at Branch 1015, PIERRE
[facility] member approving Restricted medication : DENNIS FINLEY insulin NPH Yes 14U 14 Units, U nivers (HUMULIN N) 01-25 Subcutaneo it y of injection 14:00: us, QAM, [place] 14 Units 00 First dose Medic al on Mon Branch 01/25/19 at 0900, Until Discontinu ed, Routine pantoprazol Yes 40mg 40 mg, Univ ers e 01-25 Oral, ity of (PROTONIX) 14:00: DAILY, [place] EC tablet 00 First dose Medi uriel 40 mg on Mon Branch 01/25/19 at 0900, Until Discontinu ed, Routine metoprolol Yes 25mg 25 mg, Unive rs succinate 01-25 Oral, BID, ity of XL (TOPROL 13:00: First dose [place] XL) tablet 00 on Mon Medical 25 mg 01/25/19 at Branch 0800, Until Discontinu ed, Routine levothyroxi Yes 50ug 50 mcg, Uni vers ne 01-25 Oral, ity of (SYNTHROID) 11:00: QAM-0600, [place] tablet 50 00 First dose Medi uriel mcg on Mon Branch 01/25/19 at 0600, Until Discontinu ed, Routine KCL 2019- No 40meq 40 mEq, IV Unive rs (POTASSIUM 01-25 Piggyback, it y of CHLORIDE) 09:06: 11:25 ONCE, 1 [place] 40 mEq in 00 :00 dose, Fri Medic al NaCl 0.9% 01/25/19 at [facility] h (NS) 0415, 250 piggyback mL KCL 2018- No 40meq 40 mEq, Univers (KLOR-CON 01-25 Oral, ity of M20) tablet 09:05: 09:16 ONCE, 1 [place] 40 mEq 00 :00 dose, [facility] Medical 01/25/19 at [place] 0415, Routine magnesium 2018- No 4g 4 g, IV Univ ers sulfate in 01-25 Piggyback, it y of water 4 05:27: 01:22 ONCE, 1 [place] gram/50 mL 00 :00 dose, Mon Medi uriel (8 %) IV 01/25/19 at [place] Piggyback 4 0030, g Routine morpHINE Yes 2mg 2 mg, Slow Uni vers injection 2 01-25 IV Push, ity of mg 05:04: Q4HPRN, [place] [id number] [facility] 01/25/19 [place] at 0004, Until Discontinu ed, Routine, Pain (scale 7-10) Polyethylen Yes 17g 17 g, Unive rs e Glycol 01-25 Oral, BID, ity o f 3350 04:30: First dose [place] (MIRALAX) 00 on [facility] Medical powder 17 g 01/24/19 at [facility] 2330, Until Discontinu ed, Routine docusate Yes 100mg 100 mg, Unive rs (COLACE) 01-25 Oral, ity of capsule 100 04:30: DAILY, [place] mg 00 First dose Medical on [facility] 01/24/19 at 2330, Until Discontinu ed, Routine clopidogrel 2018- No 75mg 75 mg, Uni vers (PLAVIX) 01-25 Oral, ity of tablet 75 04:20: 05:27 ONCE, 1 [place] mg 00 :00 dose, [facility] 01/24/19 at [place] 2330, PIERRE aspirin 2018- 2019- No 81mg 81 mg, Univers chewable 01-25 Oral, ONCE ity of tablet 81 04:20: 05:27 NOW, 1 [place] mg 00 :00 dose, [facility] 01/24/19 at Branch 2330, PIERRE Sliding 2018- Yes Subcutaneo Univ ers Scale -06 us, AC+HS, ity of Insulin - 04:15: First dose [place] Aspart 00 on [facility] Medical (NOVOLOG) + 01/24/19 at [facility] Fsbg 2315, Testing Until Discontinu ed, Routine traMADOL 50 2018- 2019- No 50mg Take 50 mg Univers mg tablet 01-25 by mouth ity o f 04:14: 00:00 every 6 [place] 44 :00 (six) Medical hours as Branch needed. acetaminoph Yes 650mg 650 mg, Un charley en 01-25 Oral, ity of (TYLENOL) 04:08: Q6HPRN, [place] tablet 650 45 Starting Medic al mg [facility] 01/24/19 Branch at 2308, Until Discontinu ed, Routine, Pain (scale 1-3) morpHINE 2019- No 2mg 2 mg, Slow [place] injection 2 01-25 IV Push, ity of mg 03:50: 03:54 ONCE, 1 [place] 00 :00 dose, [facility] Medical 01/24/19 at Branch 2300, Routine morpHINE 2019- No 4mg 4 mg, Slow [place] injection 4 01-2505 IV Push, ity of mg 00:45: 23:52 ONCE, 1 [place] 00 :00 dose, [facility] Medical 01/24/19 at Branch 1945, STAT ondansetron 2019- No 4mg 4 mg, Slow Univers (ZOFRAN 01-25-05 IV Push, ity of (PF)) 00:45: 23:51 ONCE, 1 [place] injection 4 00 :00 dose, [facility] Med ical mg 01/24/19 at Branch 1945, PIERRE heparin 2019- No 12U/kg/ 12 Univer s 25,000 01-25 09-09 h Units/kg/h ity of unit/250 mL 00:30: 21:38 r ?79.4 kg [place] (Premixed 00 :10 (9.528 Medical Bag) in mL/hr, [place] NaCl 0.45 % rounded to weight 9.53 based mL/hr), IV dosing [facility] Infusion, protocol CONTINUOUS , Starting [facility] 01/24/19 at 1930, Until 01/28/19 at 1638 aspirin 2018-0 2019- No 325mg 325 mg, Unive rs tablet 325 01-25 Oral, ity of mg 00:15: 23:28 ONCE, 1 [place] 00 :00 dose, [facility] Medical 01/24/19 at Branch 1915, STAT heparin 2018- 2019- No 4000U 4,000 Univers 1000 01-24 Units, IV ity of unit/mL 23:15: 23:33 Push, [place] injection 00 :00 ONCE, 1 [facility] 4,000 dose, [facility] Bran ch Units 01/24/19 at 1815, PIERRE iohexol 2018- 2019- No 120mL 120 mL, Unive rs (OMNIPAQUE 01-24 Intravenou it y of 350 23:00: 22:45 s, ONCE, 1 [place] BULK-150 00 :00 dose, [facility] mL) 01/24/19 at [place] injection 1800, 120 mL Routine morpHINE 2018- 2019- No 4mg 4 mg, Slow Un charley injection 4 01-24 IV Push, ity of mg 22:45: 21:57 ONCE, 1 [place] 00 :00 dose, [facility] Medical 01/24/19 at Branch 1745, STAT traMADOL 50 2019-0 Yes 50mg Take 50 mg Univers mg tablet 8-31 by mouth ity of 19:37: every 6 [place] (six) Medical hours as Branch needed. GABAPENTIN 2019- Yes 800mg Take 800 [place] ORAL 8-31 mg by ity of 19:37: mouth 2 [place] 01 (two) Medical times Branch daily. venlafaxine 2019-0 Yes 75mg Take 75 mg Univers 75 mg 8-31 by mouth 2 ity of tablet 19:37: (two) [place] 01 times Medical daily. Branch levothyroxi 2019-0 Yes 50ug Take 50 Uni vers ne 50 mcg 8-31 mcg by ity of tablet 19:37: mouth [place] 01 every Medical morning. Branch traMADOL 50 2019-0 Yes 50mg Take 50 mg Univers mg tablet 8-31 by mouth ity of 19:37: every 6 [place] 01 (six) Medical hours as Branch needed. GABAPENTIN 2019-0 Yes 800mg Take 800 [place] ORAL 8-31 mg by ity of 19:37: mouth 2 [place] 01 (two) Medical times Branch daily. venlafaxine 2019-0 Yes 75mg Take 75 mg Univers 75 mg 8-31 by mouth 2 ity of tablet 19:37: (two) [place] times Medical daily. Branch levothyroxi 2019- Yes 50ug Take 50 Uni vers ne 50 mcg 8-31 mcg by ity of tablet 19:37: mouth [place] every Medical morning. Branch traMADOL 50 2019- Yes 50mg Take 50 mg Univers mg tablet 8-31 by mouth ity of 19:37: every 6 (six) Medical hours as Branch needed. GABAPENTIN 2019- Yes 800mg Take 800 [place] ORAL 8-31 mg by ity of 19:37: mouth 2 (two) Medical times Branch daily. venlafaxine 2019- Yes 75mg Take 75 mg Univers 75 mg 8-31 by mouth 2 ity of tablet 19:37: (two) [place] times Medical daily. Branch levothyroxi Yes 50ug Take 50 Uni vers ne 50 mcg 8-31 mcg by ity of tablet 19:37: mouth every Medical morning. Branch NaCl 0.9% 2018- No IV Univers (NS) bolus 01-19 Piggyback, it y of infusion 02:20: 02:26 CONTINUOUS [place] 55 :00 PRN, Medical Starting Branch Mon01/18/19 at 2120, Until Discontinu ed, STAT NaCl 0.9% 2018- No IV Univers (NS) bolus 01-19 Piggyback, it y of infusion 02:10: 02:10 CONTINUOUS [place] 00 :00 PRN, Medical Starting Branch Mon01/18/19 at 2110, Until Mon01/18/19 at 2109, STAT FENTanyl PF 2018- No Slow IV Un [place] (SUBLIMAZE 01-19 Push, ity of (PF)) 01:55: 01:55 TITRATE - [place] injection 00 :00 FOR Medical PROCEDURE Branch USE, 1 dose, Starting Mon01/18/19 at 2054, Until Mon01/18/19 at 2054, Routine heparin 2018- No Slow IV Univer s 1,000 01-19 Push, ity of unit/mL 01:39: 01:39 TITRATE - [place] injection 24 :24 FOR Medical PROCEDURE Branch USE, 1 dose, Starting Mon01/18/19 at 2038, Until Mon01/18/19 at 2038, Routine lidocaine 2018- No Infiltrati U nivers 1% (PF) 01-19 on, ity of (XYLOCAINE) 01:32: 01:32 TITRATE - [place] injection 30 :30 FOR Medical PROCEDURE Branch USE, 1 dose, Starting Mon01/18/19 at 2031, Until Mon01/18/19 at 2031, Routine FENTanyl PF 2018- No Slow IV [place] (SUBLIMAZE 01-19 Push, ity of (PF)) 01:27: 01:27 TITRATE - [place] injection 24 :24 FOR Medical PROCEDURE Branch USE, 1 dose, Starting Mon01/18/19 at 2026, Until Mon01/18/19 at 2026, Routine midazolam 2018- No IV Push, Uni vers (VERSED) 01-19 TITRATE - ity o f injection 01:27: 01:27 FOR [place] 16 :16 PROCEDURE Medical USE, 1 Branch dose, Starting Mon01/18/19 at 2026, Until Mon01/18/19 at 2026, Routine metoprolol Yes [id number] 25mg Take 1 [place] succinate 8-31 tablet by ity o f XL 25 mg 24 00:00: mouth 2 [place] hr tablet 00 (two) Medical times Branch daily. clopidogrel Yes [id number] 75mg Take 1 Univers (PLAVIX) 75 8-31 100 tablet by ity of mg tablet 00:00: mouth [place] 00 daily. Medical Branch atorvastati Yes [id number] 80mg Take 1 Univers n 80 mg 8-31 100 tablet by ity of tablet 00:00: mouth at [place] 00 bedtime. Medical Branch aspirin 81 2018- Yes [id number] 81mg Take 1 Univers mg EC 8-31 100 tablet by ity of tablet 00:00: mouth [place] 00 daily. Medical Branch metoprolol Yes [id number] 25mg Take 1 [place] succinate 8-31 tablet by ity o f XL 25 mg 24 00:00: mouth 2 [place] hr tablet 00 (two) Medical times Branch daily. clopidogrel 2018- Yes [id number] 75mg Take 1 Univers (PLAVIX) 75 8- 100 tablet by ity of mg tablet 00:00: mouth [place] 00 daily. Medical Branch atorvastati Yes [id number] 80mg Take 1 Univers n 80 mg 8- 100 tablet by ity of tablet 00:00: mouth at [place] 00 bedtime. Medical Branch aspirin 81 Yes [id number] 81mg Take 1 Univers mg EC 8- 100 tablet by ity of tablet 00:00: mouth [place] 00 daily. Medical Branch metoprolol Yes [id number] 25mg Take 1 [place] succinate 8 tablet by ity o f XL 25 mg 24 00:00: mouth 2 [place] hr tablet 00 (two) Medical times Branch daily. clopidogrel Yes [id number] 75mg Take 1 Univers (PLAVIX) 75 8- 100 tablet by ity of mg tablet 00:00: mouth [place] 00 daily. Medical Branch atorvastati Yes [id number] 80mg Take 1 Univers n 80 mg 8 100 tablet by ity of tablet 00:00: mouth at [place] 00 bedtime. Medical Branch aspirin 81 Yes [id number] 81mg Take 1 Univers mg EC 8 100 tablet by ity of tablet 00:00: mouth [place] 00 daily. Medical Branch metoprolol 2019- No [id number] 25mg Take 1 U nivers succinate 01-19 tablet by ity of XL 25 mg 24 00:00: 00:00 mouth 2 [place] hr tablet 00 :00 (two) Medical times Branch daily. clopidogrel 2019- No [id number] 75mg Take 1 Univers (PLAVIX) 75 01-19 100 tablet by it y of mg tablet 00:00: 00:00 mouth [place] 00 :00 daily. Medical Branch atorvastati 2019- No [id number] 80mg Take 1 Univers n 80 mg 01-19 100 tablet by ity of tablet 00:00: 00:00 mouth at [place] 00 :00 bedtime. Medical Branch aspirin 81 2019- No [id number] 81mg Take 1 Univers mg EC 01-19 100 tablet by ity of tablet 00:00: 00:00 mouth [place] 00 :00 daily. Medical Branch insulin NPH 2018- Yes 12U 12 Units, U nivers and regular 30 Subcutaneo it y of human 23:00: us, [place] (HUMULIN 00 DINNER, Medical 70-30 U-100 First dose Br anch INSULIN) on Fri 100 unit/mL 01/18/19 at (70-30) 1800, injection Until 12 Units Discontinu ed, PIERRE clopidogrel 2019- No 300mg 300 mg, U nivers (PLAVIX) 01-18 Oral, ity of tablet 300 17:15: 19:07 ONCE, 1 [place] mg 00 :00 dose, Fri Medical 01/18/19 at Branch 1215, PIERRE psyllium 2018- Yes 1{packe 1 Packet, U nivers (METAMUCIL 01-18 t} Oral, ity of FIBER 14:00: DAILY, [place] SINGLE) 00 First dose Medic al 3.4 gram on Fri Branch packet 1 01/18/19 at Packet 0900, Until Discontinu ed, Routine insulin NPH Yes 16U 16 Units, U nivers and regular 01-18 Subcutaneo it y of human 13:00: us, [facility] [place] (HUMULIN 00 WITH Medical 70-30 U-100 BREAKFAST, Br anch INSULIN) First dose 100 unit/mL on Fri (70-30) 01/18/19 at injection 0800, 16 Units Until Discontinu ed, Routine sennosides Yes 8.6mg 8.6 mg, Uni vers (SENOKOT) 01-18 Oral, BID, ity of tablet 8.6 13:00: First dose [place] mg 00 on Fri Medical 01/18/19 at Branch 0800, Until Discontinu ed, Routine KCL 2019- No 40meq 40 mEq, Univers (KLOR-CON 01-18 Oral, ity of M20) tablet 11:15: 10:16 ONCE, 1 [place] 40 mEq 00 :00 dose, Fri Medical 01/18/19 at Branch 0615, Routine magnesium 2019- No 2g 2 g, IV Univ ers sulfate in 01-1830 Piggyback, it y of water 2 11:15: 10:50 ONCE, 1 [place] gram/50 mL 00 :00 dose, Fri Medi uriel (4 %) 01/18/19 at Branch infusion 2 0615, g Routine bisacodyl 2018- No 5mg 5 mg, Univer s (DULCOLAX) 01-18 Oral, ity of tablet 5 mg 05:21: 05:40 ONCE, 1 [place] 00 :00 dose, Fri Medical 01/18/19 at Branch 0030, Routine Polyethylen 2019- No 17g 17 g, Univ ers e Glycol 01-18 Oral, ity of 3350 05:21: 05:40 ONCE, 1 [place] (MIRALAX) 00 :00 dose, Fri Medic al powder 17 g 01/18/19 at Br anch 0030, Routine acetaminoph Yes 650mg 650 mg, Un charley en 01-18 Oral, ity of (TYLENOL) 00:02: Q6HPRN, [place] tablet 650 43 Starting Medic al mg [facility] Branch 01/17/19 at 1902, Until Discontinu ed, Routine, Pain (scale 1-3) NaCl 0.9% 2018- No 500mL at 999 Univ ers (NS) bolus 01-17 mL/hr, 500 it y of infusion 17:45: 16:43 mL, IV [place] 500 mL 00 :00 Piggyback, Medical ONCE, 1 Branch dose, [place] 01/17/19 at 1245, STAT pantoprazol Yes 40mg 40 mg, Univ ers e 01-17 Oral, ity of (PROTONIX) 14:00: DAILY, [place] EC tablet 00 First dose Medi uriel 40 mg on [facility] Branch 01/17/19 at 0900, Until Discontinu ed, Routine enoxaparin Yes 40mg 40 mg, Unive rs (LOVENOX) 01-17 Subcutaneo ity of injection 14:00: us, DAILY, [place] 40 mg 00 First dose Medical on [facility] Branch 01/17/19 at 0900, Until Discontinu ed, Routine clopidogrel Yes 75mg 75 mg, Univ ers (PLAVIX) 01-17 Oral, ity of tablet 75 14:00: DAILY, [place] mg 00 First dose Medical on [facility] Branch 01/17/19 at 0900, Until Discontinu ed, Routine docusate 2019- No 100mg 100 mg, Univ ers (COLACE) 01-17 Oral, BID, ity of capsule 100 13:00: 05:16 First dose [place] mg 00 :46 on [facility] 01/17/19 at Branch 0800, Until Discontinu ed, Routine insulin NPH 2019- 2019- No 16U 16 Units, Univers and regular 01-17 Subcutaneo i ty of human 70-30 13:00: 05:19 us, QAM [place] (HUMULIN 00 :12 WITH Medical 70-30 U-100 BREAKFAST, Br anch INSULIN) First dose 100 unit/mL on [facility] (70-30) 01/17/19 at injection 0800, 16 Units Until Discontinu ed, Routine morpHINE 2019- Yes 2mg 2 mg, Slow Uni vers injection 2 01-17 IV Push, ity of mg 12:43: Q4HPRN, [place] 22 Starting Medical [facility] 01/17/19 at 0743, Until Discontinu ed, Routine, Breakthrou gh Pain (scale 4-10), Chest pain glipiZIDE 2019- No 5mg 5 mg, Univer s (GLUCOTROL) 01-17 Oral, ity of tablet 5 mg 12:30: 05:07 BIDAC, [place] 00 :51 First dose Medical on [facility] 01/17/19 at 0730, Until Discontinu ed, Routine levothyroxi 2018- Yes 50ug 50 mcg, Uni vers ne 01-17 Oral, ity of (SYNTHROID) 11:00: QAM-0600, [place] tablet 50 00 First dose Medi uriel mcg on [facility] 01/17/19 at 0600, Until Discontinu ed, Routine Sliding 2019-0 Yes Subcutaneo Univ ers Scale - us, Q4H, ity of Insulin - 09:00: First dose [place] Aspart 00 on [facility] (NOVOLOG) + 01/17/19 at Br anch Fsbg 0400, Testing Until Discontinu ed, Routine gabapentin 2019-0 Yes 300mg 300 mg, Uni vers (NEURONTIN) 01-17 Oral, TID, it y of capsule 300 08:45: First dose [place] mg 00 on [facility] 01/17/19 at Branch 0345, Until Discontinu ed, Routine traMADol 2019-0 Yes 50mg 50 mg, Univers (ULTRAM) 01-17 Oral, ity of tablet 50 08:32: Q8HPRN, [place] mg 58 Starting Medical [facility] Branch 01/17/19 at 0332, Until Discontinu ed, Routine, Pain (scale 4-6), Pain (scale 7-10) ondansetron 2019-0 Yes 4mg 4 mg, Slow Univers (ZOFRAN 01-17 IV Push, ity of (PF)) 08:32: Q6HPRN, [place] injection 4 00 Starting Medi uriel mg [facility] Branch 01/17/19 at 0332, Until Discontinu ed, Routine, Nausea and Vomiting (N/V) glucagon 2019-0 Yes 1mg 1 mg, Univers (GLUCAGEN 01-17 Intramuscu ity of DIAGNOSTIC 08:30: lar, PRN, [place] KIT) 47 Starting Medical injection 1 [facility] Branch mg 01/17/19 at 033, Until Discontinu ed, PIERRE, Blood Glucose < or = 70 mg/dL and patient is unable to swallow or has mental changes. dextrose 50 2019-0 Yes 25mL 25 mL, Univ ers % in water 01-17 Slow IV ity of (D50W) 08:30: Push, PRN, [place] injection 47 Starting Medica l 25 mL [facility] Branch 01/17/19 at 0330, Until Discontinu ed, PIERRE, Blood Glucose < or = 70 mg/dL and patient is unable to swallow or has mental status changes. metoprolol 2019-0 Yes 25mg 25 mg, Unive rs succinate 01-17 Oral, BID, ity of XL (TOPROL 08:30: First dose [place] XL) tablet 00 on [facility] Medical 25 mg 01/17/19 at Branch 0330, Until Discontinu ed, [place] atorvastati 2019-0 Yes 80mg 80 mg, Univ ers n (LIPITOR) 01-17 Oral, QHS, it y of tablet 80 08:30: First dose [place] mg 00 on [facility] Medical 01/17/19 at Branch 0330, Until Discontinu ed, Routine aspirin 2019-0 Yes 81mg 81 mg, Univers chewable 01-17 Oral, QAM ity of tablet 81 08:30: WITH [place] mg 00 BREAKFAST, Medical First dose Branch on [facility] 01/17/19 at 0330, Until Discontinu ed, Routine isosorbide 2019- No 30mg 30 mg, Univ ers mononitrate 01-17 Oral, BID, i ty of (IMDUR) 24 08:30: 16:19 First dose [place] hr tablet 00 :01 on [facility] Medical 30 mg 01/17/19 at Branch 0330, Until Discontinu ed, Routine FENTanyl PF 2019- No 50ug 50 mcg, Un [place] (SUBLIMAZE 01-17 Slow IV ity o f (PF)) 07:15: 06:27 Push, [place] injection 00 :00 ONCE, 1 Medical 50 mcg dose, [facility] Branch 01/17/19 at 0215, Routine nitroglycer Yes .4mg 0.4 mg, Uni vers in 01-17 Sublingual ity of (NITROSTAT) 06:04: , Q5MIN [place] sublingual 44 PRN, 3 Medical tablet 0.4 doses, Branch mg Starting [place] 01/17/19 at 0104, Until Discontinu ed, PIERRE, Chest pain insulin NPH Yes [id number] 14U inject 14 Univers 100 unit/mL 5-15 Units ity of injection 00:00: under the [place] 00 skin every Medical morning. Branch insulin NPH Yes [id number] 14U inject 14 Univers 100 unit/mL 5-15 Units ity of injection 00:00: under the [place] 00 skin every Medical morning. Branch insulin NPH Yes [id number] 14U inject 14 Univers 100 unit/mL 5-15 Units ity of injection 00:00: under the [place] 00 skin every Medical morning. Branch insulin NPH Yes [id number] 14U inject 14 Univers 100 unit/mL 5-15 Units ity of injection 00:00: under the [place] 00 skin every Medical morning. Branch insulin NPH 0 Yes [id number] 14U inject 14 Univers 100 unit/mL 5-15 Units ity of injection 00:00: under the [place] 00 skin every Medical morning. Branch insulin NPH 0 Yes [id number] 14U inject 14 Univers 100 unit/mL 5-15 Units ity of injection 00:00: under the [place] 00 skin every Medical morning. Branch insulin NPH Yes [id number] 14U inject 14 Univers 100 unit/mL 5-15 Units ity of injection 00:00: under the [place] 00 skin every Medical morning. Branch insulin 2018-0 Yes [id number] 6U inject 6 U nivers regular 5-14 Units ity of human 100 00:00: under the [place] unit/mL 00 skin 2 Medical injection (two) Branch times daily before breakfast and dinner. insulin 2018- Yes [id number] 6U inject 6 U nivers regular 5-14 Units ity of human 100 00:00: under the [place] unit/mL 00 skin 2 Medical injection (two) Branch times daily before breakfast and dinner. insulin 0 Yes [id number] 6U inject 6 U nivers regular 5-14 Units ity of human 100 00:00: under the [place] unit/mL 00 skin 2 Medical injection (two) Branch times daily before breakfast and dinner. insulin 2018-0 Yes [id number] 6U inject 6 U nivers regular 5-14 Units ity of human 100 00:00: under the [place] unit/mL 00 skin 2 Medical injection (two) Branch times daily before breakfast and dinner. insulin 0 Yes [id number] 6U inject 6 U nivers regular 5-14 Units ity of human 100 00:00: under the [place] unit/mL 00 skin 2 Medical injection (two) Branch times daily before breakfast and dinner. metformin 0 Yes [id number] 750mg Take 1 [place] ER 750 mg 5-14 tablet by ity o f 24 hr 00:00: mouth 2 [place] tablet 00 (two) Medical times Branch daily. insulin NPH Yes [id number] 12U inject 12 Univers 100 unit/mL 5-14 Units ity of injection 00:00: under the [place] 00 skin every Medical evening. Branch insulin 0 Yes [id number] 6U inject 6 U nivers regular 5-14 Units ity of human 100 00:00: under the [place] unit/mL 00 skin 2 Medical injection (two) Branch times daily before breakfast and dinner. metformin 0 Yes [id number] 750mg Take 1 [place] ER 750 mg 5-14 tablet by ity o f 24 hr 00:00: mouth 2 [place] tablet 00 (two) Medical times Branch daily. insulin NPH 0 Yes [id number] 12U inject 12 Univers 100 unit/mL 5-14 Units ity of injection 00:00: under the [place] 00 skin every Medical evening. Branch insulin 2018-0 Yes [id number] 6U inject 6 U nivers regular 5-14 Units ity of human 100 00:00: under the [place] unit/mL 00 skin 2 Medical injection (two) Branch times daily before breakfast and dinner. metformin 2018-0 Yes [id number] 750mg Take 1 [place] ER 750 mg 5-14 tablet by ity o f 24 hr 00:00: mouth 2 [place] tablet 00 (two) Medical times Branch daily. insulin NPH Yes [id number] 12U inject 12 Univers 100 unit/mL 5-14 Units ity of injection 00:00: under the [place] 00 skin every Medical evening. Branch insulin 0 Yes [id number] 6U inject 6 U nivers regular 5-14 Units ity of human 100 00:00: under the [place] unit/mL 00 skin 2 Medical injection (two) Branch times daily before breakfast and dinner. insulin Yes [id number] 6U inject 6 U nivers regular 5-14 Units ity of human 100 00:00: under the [place] unit/mL 00 skin 2 Medical injection (two) Branch times daily before breakfast and dinner. insulin 2018-0 Yes [id number] 6U inject 6 U nivers regular 5-14 Units ity of human 100 00:00: under the [place] unit/mL 00 skin 2 Medical injection (two) Branch times daily before breakfast and dinner. insulin 2018-0 Yes [id number] 6U inject 6 U nivers regular 5-14 Units ity of human 100 00:00: under the [place] unit/mL 00 skin 2 Medical injection (two) Branch times daily before breakfast and dinner. insulin 2018-0 Yes [id number] 6U inject 6 U nivers regular 5-14 Units ity of human 100 00:00: under the [place] unit/mL 00 skin 2 Medical injection (two) Branch times daily before breakfast and dinner. insulin 2018-0 Yes [id number] 6U inject 6 U nivers regular 5-14 Units ity of human 100 00:00: under the [place] unit/mL 00 skin 2 Medical injection (two) Branch times daily before breakfast and dinner. insulin 2020- No [id number] 6U inject 6 Univers regular 5-14 02-27 Units ity of human 100 00:00: 00:00 under the [place] unit/mL 00 :00 skin 2 Medical injection (two) Branch times daily before breakfast and dinner. insulin NPH 2019- No [id number] 12U inject 12 Univers 100 unit/mL 10-02 09-10 Units ity of injection 00:00: 00:00 under the [place] 00 :00 skin every Medical evening. Branch metformin 2019- No [id number] 750mg Take 1 U nivers ER 750 mg 10-02 tablet by ity of 24 hr 00:00: 00:00 mouth 2 [place] tablet 00 :00 (two) Medical times Branch daily. nitroglycer Yes [id number] .4mg Place 1 Univers in 0.4 mg 5-01 tablet ity of sublingual 00:00: under the [place] tablet 00 tongue Medical every 5 Branch (five) minutes as needed for Chest pain. nitroglycer Yes [id number] .4mg Place 1 Univers in 0.4 mg 5-01 tablet ity of sublingual 00:00: under the [place] tablet 00 tongue Medical every 5 Branch (five) minutes as needed for Chest pain. nitroglycer Yes [id number] .4mg Place 1 Univers in 0.4 mg 5-01 tablet ity of sublingual 00:00: under the [place] tablet 00 tongue Medical every 5 Branch (five) minutes as needed for Chest pain. nitroglycer Yes [id number] .4mg Place 1 Univers in 0.4 mg 5-01 tablet ity of sublingual 00:00: under the [place] tablet 00 tongue Medical every 5 Branch (five) minutes as needed for Chest pain. nitroglycer Yes [id number] .4mg Place 1 Univers in 0.4 mg 5-01 tablet ity of sublingual 00:00: under the [place] tablet 00 tongue Medical every 5 Branch (five) minutes as needed for Chest pain. nitroglycer Yes [id number] .4mg Place 1 Univers in 0.4 mg 5-01 tablet ity of sublingual 00:00: under the [place] tablet 00 tongue Medical every 5 Branch (five) minutes as needed for Chest pain. nitroglycer Yes [id number] .4mg Place 1 Univers in 0.4 mg 5-01 tablet ity of sublingual 00:00: under the [place] tablet 00 tongue Medical every 5 Branch (five) minutes as needed for Chest pain. nitroglycer 2019-[id number] 1 [facility] in 0.4 mg 5-01 tablet ity of sublingual 00:00: under the [place] tablet 00 tongue Medical every 5 Branch (five) minutes as needed for Chest pain. nitroglycer 2019-[id number] 1 [facility] in 0.4 mg 5-01 tablet ity of sublingual 00:00: under the [place] tablet 00 tongue Medical every 5 Branch (five) minutes as needed for Chest pain. nitroglycer 2019-[id number] 1 [facility] in 0.4 mg 5-01 tablet ity of sublingual 00:00: under the [place] tablet 00 tongue Medical every 5 Branch (five) minutes as needed for Chest pain. nitroglycer 2019-[id number] 1 [facility] in 0.4 mg 5-01 tablet ity of sublingual 00:00: under the [place] tablet 00 tongue Medical every 5 Branch (five) minutes as needed for Chest pain. nitroglycer 2019-[id number] 1 [facility] in 0.4 mg 5-01 tablet ity of sublingual 00:00: under the [place] tablet 00 tongue Medical every 5 Branch (five) minutes as needed for Chest pain. nitroglycer 2019-[id number] 1 [facility] in 0.4 mg 5-01 tablet ity of sublingual 00:00: under the [place] tablet 00 tongue Medical every 5 Branch (five) minutes as needed for Chest pain. nitroglycer 2019-[id number] 1 [facility] in 0.4 mg 5-01 tablet ity of sublingual 00:00: under the [place] tablet 00 tongue Medical every 5 Branch (five) minutes as needed for Chest pain. nitroglycer 2019-[id number] 1 [facility] in 0.4 mg 5-01 tablet ity of sublingual 00:00: under the [place] tablet 00 tongue Medical every 5 Branch (five) minutes as needed for Chest pain. nitroglycer 2019-[id number] 1 [facility] in 0.4 mg 5-01 tablet ity of sublingual 00:00: under the [place] tablet 00 tongue Medical every 5 Branch (five) minutes as needed for Chest pain. nitroglycer 2018-[id number] 1 [facility] in 0.4 mg 5-01 tablet ity of sublingual 00:00: under the [place] tablet 00 tongue Medical every 5 Branch (five) minutes as needed for Chest pain. nitroglycer 2018-[id number] 1 [facility] in 0.4 mg 5-01 tablet ity of sublingual 00:00: under the [place] tablet 00 tongue Medical every 5 Branch (five) minutes as needed for Chest pain. nitroglycer 2018-[id number] 1 [facility] in 0.4 mg 5-01 tablet ity of sublingual 00:00: under the [place] tablet 00 tongue Medical every 5 Branch (five) minutes as needed for Chest pain. nitroglycer 2018-[id number] 1 [facility] in 0.4 mg 5-01 tablet ity of sublingual 00:00: under the [place] tablet 00 tongue Medical every 5 Branch (five) minutes as needed for Chest pain. nitroglycer Yes [id number] .4mg Place 1 [facility] in 0.4 mg 5-01 tablet ity of sublingual 00:00: under the [place] tablet 00 tongue Medical every 5 Branch (five) minutes as needed for Chest pain. pantoprazol 2018-0 Yes [id number] 40mg Take 1 Univers e 40 mg EC 5-01 100 tablet by ity of tablet 00:00: mouth [place] 00 daily. Medical Branch nitroglycer 2018-[id number] 1 [facility] in 0.4 mg 5-01 tablet ity of sublingual 00:00: under the [place] tablet 00 tongue Medical every 5 Branch (five) minutes as needed for Chest pain. pantoprazol 2018-0 Yes [id number] 40mg Take 1 [facility] e 40 mg EC 5-01 100 tablet by ity of tablet 00:00: mouth [place] 00 daily. Medical Branch nitroglycer 2018-[id number] 1 [facility] in 0.4 mg 5-01 tablet ity of sublingual 00:00: under the [place] tablet 00 tongue Medical every 5 Branch (five) minutes as needed for Chest pain. pantoprazol 2018-0 Yes [id number] 40mg Take 1 [facility] e 40 mg EC - 100 tablet by ity of tablet 00:00: mouth [place] 00 daily. Medical Branch nitroglycer Yes [id number] .4mg Place 1 [facility] in 0.4 mg 5-01 tablet ity of sublingual 00:00: under the [place] tablet 00 tongue Medical every 5 Branch (five) minutes as needed for Chest pain. nitroglycer Yes [id number] .4mg Place 1 [facility] in 0.4 mg 5-01 tablet ity of sublingual 00:00: under the [place] tablet 00 tongue Medical every 5 Branch (five) minutes as needed for Chest pain. nitroglycer Yes [id number] .4mg Place 1 [facility] in 0.4 mg 5-01 tablet ity of sublingual 00:00: under the [place] tablet 00 tongue Medical every 5 Branch (five) minutes as needed for Chest pain. nitroglycer Yes [id number] .4mg Place 1 [facility] in 0.4 mg 5-01 tablet ity of sublingual 00:00: under the [place] tablet 00 tongue Medical every 5 Branch (five) minutes as needed for Chest pain. nitroglycer Yes [id number] .4mg Place 1 [facility] in 0.4 mg 5-01 tablet ity of sublingual 00:00: under the [place] tablet 00 tongue Medical every 5 Branch (five) minutes as needed for Chest pain. nitroglycer Yes [id number] .4mg Place 1 [facility] in 0.4 mg 5-01 tablet ity of sublingual 00:00: under the [place] tablet 00 tongue Medical every 5 Branch (five) minutes as needed for Chest pain. nitroglycer 2020- No [id number] .4mg Place 1 [facility] in 0.4 mg 5-01 16 tablet ity of sublingual 00:00: 00:00 under the [place] tablet 00 :00 tongue Medical every 5 Branch (five) minutes as needed for Chest pain. pantoprazol 2019- No [id number] 40mg Take 1 Univers e 40 mg EC 5-01-24 100 tablet by ity of tablet 00:00: 00:00 mouth [place] 00 :00 daily. Medical Branch magnesium 2018- Yes [id number] 800mg Take 2 Un charley oxide 400 4-15 capsules ity of mg capsule 00:00: by mouth [place] 00 daily. Medical [facility] magnesium Yes [id number] 800mg Take 2 Un charley oxide 400 4-15 capsules ity of mg capsule 00:00: by mouth [place] 00 daily. Medical [facility] magnesium Yes [id number] 800mg Take 2 Un char[place] oxide 400 4-15 capsules ity of mg capsule 00:00: by mouth [place] 00 daily. [facility] magnesium 2019- No [id number] 800mg Take 2 U nivers oxide 400 4-15 09-05 capsules ity o f mg capsule 00:00: 00:00 by mouth [place] 00 :00 daily. [facility] atorvastati 2019- No [id number] 80mg Take 1 Univers n 80 mg 07-17 100 tablet by ity of tablet 00:00: 00:00 mouth at [place] 00 :00 bedtime. Medical Branch clopidogrel 2018- No [id number] 75mg Take 1 Univers (PLAVIX) 75 07-17 100 tablet by it y of mg tablet 00:00: 00:00 mouth [place] 00 :00 daily. Medical Branch aspirin 81 2019- No [id number] 81mg Take 1 [facility] mg EC 07-17 100 tablet by ity of tablet 00:00: 00:00 mouth [place] 00 :00 daily. Medical Branch Aspirin 81 Aspirin 81 2018- No Alexis [address] [facility] Mg Tab.chew Mg Tab.chew 10-26 Brooke Frankel - 00:00: 00:00 Patient 00 :00 s [facility] Diflunisal Diflunisal 2015- No Todd Wynn [address] [facility] (Dolobid) (Dolobid) 01-17 [facility] - 500 Mg 500 Mg 00:00: 00:00 Patient Tablet, 500 Tablet, 500 00 :00 s Mg Oral Mg Oral [facility] Ondansetron Ondansetron 2015- No Todd [...] atient Mg Tablet Mg Tablet s Medical Center Cyclobenzap Cyclobenzap Yes [address] [facility] rine Hcl rine Hcl Times A [facility] - (Flexeril) (Flexeril) Day as P atient 5 Mg Tablet 5 Mg Tablet needed for s [facility] Doxazosin Doxazosin Yes [address] [facility] Mesylate Mesylate [facility] - (Cardura) 8 (Cardura) 8 P atient Mg Tablet Mg Tablet s [facility] Fenofibrate Fenofibrate Yes [address] [facility] 200 Mg Cap 200 Mg Cap [facility] - Patient [facility] Gabapentin Gabapentin Yes [address] [facility] 800 Mg 800 Mg Hours [facility] - Tablet Tablet [facility] Glipizide 5 Glipizide 5 Yes [address] [facility] Mg Tablet Mg Tablet Day [facility] - Patient [facility] Hydrocodone Hydrocodone Yes [address] [facility] Bit/Acetami Bit/Acetami Hours as [facility] - nophen nophen needed for [place] ([place] [facility] 10-325 10-325 Medical Tablet) [...] 50 Mcg 50 Mcg Patient Tablet Tablet s [facility] Lisinopril Lisinopril Yes 2.[address] 2.5 Mg 2.5 Mg [facility] - Tablet Tablet [facility] Metformin Metformin Yes [address] [facility] Hcl Hcl Day [facility] - (Glucophage (Glucophage P atient ) 1,000 Mg ) 1,000 Mg s Tablet Tablet Medical Center Methadone Methadone Yes 5 Every [address] Hcl 5 Mg Hcl 5 Mg Hours [facility] - Tablet Tablet Patient s [facility] Metoprolol Metoprolol Yes [address] Tartrate 25 Tartrate 25 L ukes - Mg Tablet Mg Tablet Patie nt [facility] Nitroglycer Nitroglycer Yes As Needed [facility] in in [facility] - (Nitrostat) (Nitrostat) P atient 0.4 Mg 0.4 Mg s Tab.subl Tab.subl [facility] Omeprazole Omeprazole Yes [address] 20 Mg 20 Mg [facility] - Capsule.dr Lind.dr [facility] Simvastatin Simvastatin Yes [address] 80 Mg 80 Mg [facility] - Tablet Tablet Patient s [facility] Tamsulosin Tamsulosin Yes Daily [facility] Hcl 0.4 Mg Hcl 0.4 Mg Esme es - Cap.er.24h Cap.er.24h [facility] Tramadol Tramadol Yes [address] [facility] Hcl Hcl Daily as [facility] - (Ultram) 50 (Ultram) 50 needed for Patient Mg Tablet Mg Tablet Pain [facility] Venlafaxine Venlafaxine Yes [address] [facility] Hcl 75 Mg Hcl 75 Mg [facility] - Tab Tab Patient s [facility] Albuterol Albuterol 2017- No 1 Twice A [...] Navid blanco Mg Oral Mg Oral :00 [facility] Insulin Insulin 2017- No 40 7AM &Hs [...] :00 on s 0.4 Mg 0.4 Mg [facility] Venlafaxine Venlafaxine 37.5 Daily [facility] St. Hcl 75 Mg Hcl 75 Mg 10-15 Luke s - Tab, 37.5 Tab, 37.5 00:00 Manjula ent Mg Oral Mg Oral :00 s [facility] Clindamycin Clindamycin 300 Three [facility] St. Hcl 150 Mg Hcl 150 Mg 08-16 Times A [facility] - Capsule, Capsule, 00:00 Day Patien t 300 Mg Oral 300 Mg Oral :00 s [facility] Ibuprofen Ibuprofen 800 Three [facility] St. 600 Mg 600 Mg 08-16 Times A [facility] - Tablet, 800 Tablet, 800 00:00 Day as Patient Mg Oral Mg Oral :00 needed for s Mild Pain [facility] (1-3) [place] Ranolazine Ranolazine 999 Twice A [facility] St. (Ranexa) (Ranexa) 08-16 Day [facility] - 500 Mg 500 Mg 00:00 Patient Tabsr, 1000 Tabsr, 1000 :00 s Mg Oral Mg [facility] Insulin Insulin [address] [facility] [facility] Human Nph Human Nph 09-08 Luke [facility] - (Humulin N) (Humulin N) 00:00 Patient 100 100 :00 s Units/Ml Units/Ml Medical Ml, 32 Ml, 32 Center Units Units Subcutaneou Subcutaneou sly sly Insulin Insulin 45 Three [facility] St. Regular, Regular, 04-20 Times A Esme es - Human Human 00:00 Day Patient (Humulin R) (Humulin R) :00 s 100 Unit/1 100 Unit/1 Med ical Ml Vial, 45 Ml Vial, 45 C enter Units Units Subcutaneou Subcutaneou sly sly Ranolazine Ranolazine 1000 Twice A [facility] St. (Ranexa) (Ranexa) 04-20 Day [facility] - 500 Mg 500 Mg 00:00 Patient Tabsr, 1000 Tabsr, 1000 :00 s Mg Oral Mg Oral [facility] Insulin Insulin Before [facility] St . Regular, Regular, 03-22 Meals [facility] - Human Human 00:00 Patient (Humulin R) (Humulin R) :00 s 100 Unit/1 100 Unit/1 Med ical Ml Vial, 20 Ml Vial, 20 C enter Units Sub-Q Units Sub-Q Omeprazole Omeprazole [facility] 40 Mg 40 Mg 06-17 [facility] - Capsule., Capsule., 00:00 Patient :00 s [facility] Insulin Insulin Twice A [facility] Glargine Glargine 05-01 Day [facility] - (Lantus) (Lantus) 00:00 Patien t 100 100 :00 s Units/Ml Units/Ml Medical Ml, 90 Unit Ml, 90 Unit C enter Subcutaneou Subcutaneou sly sly Insulin Insulin Three [facility] Regular, Regular, - Times A Esme es - Human Human 00:00 Day Patient (Humulin R) (Humulin R) :00 s 100 Unit/1 100 Unit/1 Med ical Ml Vial, 25 Ml Vial, 25 C enter Unit Unit Subcutaneou Subcutaneou sly sly Isosorbide Isosorbide [address] Mononitrate Mononitrate 05-01 [facility] - (Isosorbide (Isosorbide 00:00 Patient Mononitrate Mononitrate :00 s Er) 30 Mg Er) 30 Mg Medic al Tab.er.24h, Tab.er.24h, C enter 60 Mg Oral 60 Mg Oral Metoprolol Metoprolol Daily [facility] Tartrate 25 Tartrate 25 05-01 [facility] - Mg Tablet, Mg Tablet, 00:00 Pa tient 25 Mg Oral 25 Mg Oral :00 [facility] Albuterol Albuterol As Needed [facility] St. Sulfate Sulfate 11-23 as needed Esme es - (Ventolin (Ventolin 00:00 for Manjula ent Hfa) 18 Gm Hfa) 18 Gm :00 Shortness s Hfa.aer.ad, Hfa.aer.ad, Of Breath Medical 90 Mcg 90 Mcg Center Inhalation Inhalation Dicyclomine Dicyclomine Twice A [facility] Hcl 10 Mg Hcl 10 Mg 11-23 Day Luke s - Capsule, 10 Capsule, 10 00:00 Patient Mg Oral Mg Oral :00 s [facility] Methocarbam Methocarbam [address] ol ol - [...] Oral Mg Oral :00 s Medical Center Nitroglycer Nitroglycer 2015- No .[address] [facility] in in 11-23 for Chest [facility] - (Nitrostat) (Nitrostat) 00:00 Pain Patient 0.4 Mg 0.4 Mg :00 s Tab.subl, Tab.subl, Medic al 0.4 Mg 0.4 Mg [place] Sublingual Sublingual Pantoprazol Pantoprazol No 40 Daily [...] Gm Oral Gm Oral :00 s Medical [place] Temazepam Temazepam [address] (Restoril) (Restoril) 11-23 Theresa kes - 30 Mg 30 Mg 00:00 Patient Capsule, 30 Capsule, 30 :00 s Mg Oral Mg Oral [facility] Center Tizanidine Tizanidine No [address] Hcl 4 Mg Hcl 4 Mg 11-23 [facility] - Capsule, 4 Capsule, 4 00:00 Pa tient Mg Oral Mg Oral :00 s Medical [place] Trazodone Trazodone No [address] [facility] Hcl 50 Mg Hcl 50 Mg 11-23 Luke [facility] - Tablet, 50 Tablet, 50 00:00 Pa tient Mg Oral Mg Oral :00 s Medical [place] Venlafaxine Venlafaxine No 37.[address] [facility] Hcl 37.5 Mg Hcl 37.5 Mg 11-23 Day [facility] - Tablet, Tablet, 00:00 Patient 37.5 Tab 37.5 Tab :00 s Oral [facility] Cyclobenzap Cyclobenzap 2014- No [address] [facility] rine Hcl 10 rine Hcl 10 07- Times A [facility] - Mg Tablet, Mg Tablet, 00:00 Day Pa tient 10 Mg Oral 10 Mg Oral :00 s [facility] Gabapentin Gabapentin 2014- No [address] 300 Mg 300 Mg 07-31 Times A [facility] - Capsule, Capsule, 00:00 Day Patien t 600 Mg Oral 600 Mg Oral :00 s [facility] Pregabalin Pregabalin 2013- No [address] [facility] (Lyrica) (Lyrica) -14 Day [facility] - 150 Mg 150 Mg 00:00 Patient Capsule, Capsule, :00 s 150 Mg Oral 150 Mg Oral M [facility] Zolpidem Zolpidem 2013- No 10 [facility] Tartrate Tartrate 01-02 [facility] - (Ambien) 10 (Ambien) 10 00:00 Patient Mg Tablet, Mg Tablet, :00 s 10 Mg Oral [address] [facility] Immunizations Ordered Filled Immunization Date Status Comments [facility] e Immunization Name Name Influenza Virus 2020-01-21 Completed Universit y of Vaccine 00:00:00 [facility] Influenza Virus 2020-01-21 Completed Universit y of Vaccine 00:00:00 [facility] Influenza Virus 2020-01-21 Completed Universit y of Vaccine 00:00:00 [facility] Influenza Virus 2020-01-21 Completed Universit y of Vaccine 00:00:00 [facility] Influenza Virus 2020-01-21 Completed Universit y of Vaccine 00:00:00 [facility] Influenza Virus 2020-01-21 Completed Universit y of Vaccine 00:00:00 [facility] Influenza Virus 2020-01-21 Completed Universit y of Vaccine 00:00:00 [facility] Influenza Virus 2020-01-21 Completed Universit y of Vaccine 00:00:00 [facility] Influenza Virus 2020-01-21 Completed Universit y of Vaccine 00:00:00 [facility] Influenza Virus 2020-01-21 Completed Universit y of Vaccine 00:00:00 [facility] Influenza Virus 2020-01-21 Completed Universit y of Vaccine 00:00:00 [facility] Influenza Virus 2020-01-21 Completed Universit y of Vaccine 00:00:00 [facility] Influenza Virus 2020-01-21 Completed Universit y of Vaccine 00:00:00 [facility] Influenza Virus 2020-01-21 Completed Universit y of Vaccine 00:00:00 [facility] Influenza Virus 2020-01-21 Completed Universit y of Vaccine 00:00:00 [facility] Influenza Virus 2020-01-21 Completed Universit y of Vaccine 00:00:00 [facility] Influenza Virus 2020-01-21 Completed Universit y of Vaccine 00:00:00 [facility] Influenza Virus 2020-01-21 Completed Universit y of Vaccine 00:00:00 [facility] Zoster Vaccine 2019-07-17 Completed University of Recombinant 00:00:00 [facility] Zoster Vaccine 2019-07-17 Completed University of Recombinant 00:00:00 [facility] Zoster Vaccine 2019-07-17 Completed University of Recombinant 00:00:00 [facility] Zoster Vaccine 2019-07-17 Completed University of Recombinant 00:00:00 [facility] Zoster Vaccine 2019-07-17 Completed University of Recombinant 00:00:00 [facility] Zoster Vaccine 2019-07-17 Completed University of Recombinant 00:00:00 [facility] Zoster Vaccine 2019-07-17 Completed University of Recombinant 00:00:00 [facility] Zoster Vaccine 2019-07-17 Completed University of Recombinant 00:00:00 [facility] Zoster Vaccine 2019-07-17 Completed University of Recombinant 00:00:00 [facility] Zoster Vaccine 2019-07-17 Completed University of Recombinant 00:00:00 [facility] Zoster Vaccine 2019-07-17 Completed University of Recombinant 00:00:00 [facility] Zoster Vaccine 2019-07-17 Completed University of Recombinant 00:00:00 [facility] Zoster Vaccine 2019-07-17 Completed University of Recombinant 00:00:00 [facility] Zoster Vaccine 2019-07-17 Completed University of Recombinant 00:00:00 [facility] Zoster Vaccine 2019-07-17 Completed University of Recombinant 00:00:00 [facility] Zoster Vaccine 2019-07-17 Completed University of Recombinant 00:00:00 [facility] Zoster Vaccine 2019-07-17 Completed University of Recombinant 00:00:00 [facility] Zoster Vaccine 2019-07-17 Completed University of Recombinant 00:00:00 [facility] Zoster Vaccine 2019-07-17 Completed University of Recombinant 00:00:00 [facility] Zoster Vaccine 2019-07-17 Completed University of Recombinant 00:00:00 [facility] Zoster Vaccine 2019-07-17 Completed University of Recombinant 00:00:00 [facility] Zoster Vaccine 2019-07-17 Completed University of Recombinant 00:00:00 [facility] Zoster Vaccine 2019-07-17 Completed University of Recombinant 00:00:00 [facility] Zoster Vaccine 2019-07-17 Completed University of Recombinant 00:00:00 [facility] Zoster Vaccine 2019-07-17 Completed University of Recombinant 00:00:00 [facility] Zoster Vaccine 2019-07-17 Completed University of Recombinant 00:00:00 [facility] Zoster Vaccine 2019-07-17 Completed University of Recombinant 00:00:00 [facility] Zoster Vaccine 2019-07-17 Completed University of Recombinant 00:00:00 [facility] Zoster Vaccine 2019-07-17 Completed University of Recombinant 00:00:00 [facility] Zoster Vaccine 2019-07-17 Completed University of Recombinant 00:00:00 [facility] Zoster Vaccine 2019-07-17 Completed University of Recombinant 00:00:00 [facility] Zoster Vaccine 2019-07-17 Completed University of Recombinant 00:00:00 [facility] Zoster Vaccine 2019-07-17 Completed University of Recombinant 00:00:00 [facility] Zoster Vaccine 2019-07-17 Completed University of Recombinant 00:00:00 [facility] Zoster Vaccine 2019-07-17 Completed University of Recombinant 00:00:00 [facility] Zoster Vaccine 2019-07-17 Completed University of Recombinant 00:00:00 [facility] Zoster Vaccine 2019-07-17 Completed University of Recombinant 00:00:00 [facility] Zoster Vaccine 2019-07-17 Completed University of Recombinant 00:00:00 [facility] Zoster Vaccine 2019-07-17 Completed University of Recombinant 00:00:00 [facility] Zoster Vaccine 2019-07-17 Completed University of Recombinant 00:00:00 [facility] Zoster Vaccine 2019-07-17 Completed University of Recombinant 00:00:00 [facility] Td 2019-03-29 Completed University of 00:00:00 [facility] Td 2019-03-29 Completed University of 00:00:00 [facility] Td 2019-03-29 Completed University of 00:00:00 [facility] Td 2019-03-29 Completed University of 00:00:00 [facility] Td 2019-03-29 Completed University of 00:00:00 [facility] Td 2019-03-29 Completed University of 00:00:00 [facility] Td 2019-03-29 Completed University of 00:00:00 [facility] Td 2019-03-29 Completed University of 00:00:00 [facility] Td 2019-03-29 Completed University of 00:00:00 [place] [facility] Td 2019-03-29 Completed University of 00:00:00 [place] [facility] Td 2019-03-29 Completed University of 00:00:00 [place] [facility] Td 2019-03-29 Completed University of 00:00:00 [place] [facility] Td 2019-03-29 Completed University of 00:00:00 [place] [facility] Td 2019-03-29 Completed University of 00:00:00 [place] [facility] Td 2019-03-29 Completed University of 00:00:00 [place] [facility] Td 2019-03-29 Completed University of 00:00:00 [place] [facility] Td 2019-03-29 Completed University of 00:00:00 [place] [facility] Td 2019-03-29 Completed University of 00:00:00 [place] [facility] Td 2019-03-29 Completed University of 00:00:00 [place] [facility] Td 2019-03-29 Completed University of 00:00:00 [place] [facility] Td 2019-03-29 Completed University of 00:00:00 [place] [facility] Td 2019-03-29 Completed University of 00:00:00 [place] [facility] Td 2019-03-29 Completed University of 00:00:00 [place] [facility] Td 2019-03-29 Completed University of 00:00:00 [place] [facility] Td 2019-03-29 Completed University of 00:00:00 [place] [facility] Td 2019-03-29 Completed University of 00:00:00 [place] [facility] Td 2019-03-29 Completed University of 00:00:00 [place] [facility] Td 2019-03-29 Completed University of 00:00:00 [place] [facility] Td 2019-03-29 Completed University of 00:00:00 [place] [facility] Td 2019-03-29 Completed University of 00:00:00 [place] [facility] Td 2019-03-29 Completed University of 00:00:00 [place] [facility] Td 2019-03-29 Completed University of 00:00:00 [place] [facility] Td 2019-03-29 Completed University of 00:00:00 [place] [facility] Td 2019-03-29 Completed University of 00:00:00 [place] [facility] Td 2019-03-29 Completed University of 00:00:00 [place] [facility] Td 2019-03-29 Completed University of 00:00:00 [place] [facility] Td 2019-03-29 Completed University of 00:00:00 [place] [facility] Td 2019-03-29 Completed University of 00:00:00 [place] [facility] Td 2019-03-29 Completed University of 00:00:00 [facility] Td 2019-03-29 Completed University of 00:00:00 [facility] Td 2019-03-29 Completed University of 00:00:00 [facility] Td 2019-03-29 Completed University of 00:00:00 [facility] Td 2019-03-29 Completed University of 00:00:00 [facility] Td 2019-03-29 Completed University of 00:00:00 [facility] Td 2019-03-29 Completed University of 00:00:00 [facility] Td 2019-03-29 Completed University of 00:00:00 [facility] Td 2019-03-29 Completed University of 00:00:00 [facility] Td 2019-03-29 Completed [facility] 00:00:00 [facility] Td 2019-03-29 Completed [facility] of 00:00:00 [facility] Td 2019-03-29 Completed [facility] 00:00:00 [facility] Td 2019-03-29 Completed [facility] 00:00:00 [facility] Td 2019-03-29 Completed [facility] 00:00:00 [facility] Td 2019-03-29 Completed [facility] 00:00:00 [facility] Td 2019-03-29 Completed [facility] 00:00:00 [facility] Td 2019-03-29 Completed [facility] 00:00:00 [facility] Td 2019-03-29 Completed [facility] 00:00:00 [facility] Td 2019-03-29 Completed [facility] 00:00:00 [facility] Td 2019-03-29 Completed [facility] 00:00:00 [facility] Td 2019-03-29 Completed [facility] 00:00:00 [facility] Td 2019-03-29 Completed [facility] 00:00:00 [facility] Td 2019-03-29 Completed [facility] 00:00:00 [facility] Td 2019-03-29 Completed [facility] 00:00:00 [facility] Td 2019-03-29 Completed [facility] 00:00:00 [facility] Influenza Virus 2018-02-18 Completed Universit y of Vaccine 00:00:00 [facility] Pneumococcal 2018-02-18 Completed University o f Polysaccharide, 00:00:00 [facility] PPSV23 (PNEUMOVAX) [place] Influenza Virus 2018-02-18 Completed [facility]it y of Vaccine 00:00:00 [facility] Pneumococcal 2018-02-18 Completed [facility] o f Polysaccharide, 00:00:00 [place] [facility] PPSV23 (PNEUMOVAX) [facility] Influenza Virus 2018-02-18 Completed [facility]it y of Vaccine 00:00:00 [facility] Pneumococcal 2018-02-18 Completed [facility] o f Polysaccharide, 00:00:00 [place] [facility] PPSV23 (PNEUMOVAX) Branch Influenza Virus 2018-02-18 Completed [facility]it y of Vaccine 00:00:00 [facility] Pneumococcal 2018-02-18 Completed [facility] o f Polysaccharide, 00:00:00 [place] [facility] PPSV23 (PNEUMOVAX) Branch Influenza Virus 2018-02-18 Completed [facility]it y of Vaccine 00:00:00 [facility] Pneumococcal 2018-02-18 Completed [facility] o f Polysaccharide, 00:00:00 [place] [facility] PPSV23 (PNEUMOVAX) Branch Influenza Virus 2018-02-18 Completed [facility] y of Vaccine 00:00:00 [facility] Pneumococcal 2018-02-18 Completed [facility] o f Polysaccharide, 00:00:00 [place] [facility] PPSV23 (PNEUMOVAX) Branch Influenza Virus 2018-02-18 Completed [facility]it y of Vaccine 00:00:00 [facility] Pneumococcal 2018-02-18 Completed [facility] o f Polysaccharide, 00:00:00 [place] [facility] PPSV23 (PNEUMOVAX) Branch Influenza Virus 2018-02-18 Completed [facility] y of Vaccine 00:00:00 [facility] Pneumococcal 2018-02-18 Completed [facility] o f Polysaccharide, 00:00:00 [place] [facility] PPSV23 (PNEUMOVAX) Branch Influenza Virus 2018-02-18 Completed [facility]it y of Vaccine 00:00:00 [facility] Pneumococcal 2018-02-18 Completed [facility] o f Polysaccharide, 00:00:00 [place] [facility] PPSV23 (PNEUMOVAX) Branch Influenza Virus 2018-02-18 Completed [facility]it y of Vaccine 00:00:00 [facility] Pneumococcal 2018-02-18 Completed [facility] o f Polysaccharide, 00:00:00 [place] [facility] PPSV23 (PNEUMOVAX) Branch Influenza Virus 2018-02-18 Completed [facility]it y of Vaccine 00:00:00 [facility] Pneumococcal 2018-02-18 Completed [facility] o f Polysaccharide, 00:00:00 [place] [facility] PPSV23 (PNEUMOVAX) Branch Influenza Virus 2018-02-18 Completed [facility] y of Vaccine 00:00:00 [facility] Pneumococcal 2018-02-18 Completed [facility] o f Polysaccharide, 00:00:00 [place] [facility] PPSV23 (PNEUMOVAX) [place] Influenza Virus 2018-02-18 Completed [facility]it y of Vaccine 00:00:00 [facility] Pneumococcal 2018-02-18 Completed [facility] o f Polysaccharide, 00:00:00 [place] [facility] PPSV23 (PNEUMOVAX) Branch Influenza Virus 2018-02-18 Completed [facility] y of Vaccine 00:00:00 [facility] Pneumococcal 2018-02-18 Completed [facility] o f Polysaccharide, 00:00:00 [place] [facility] PPSV23 (PNEUMOVAX) Branch Influenza Virus 2018-02-18 Completed [facility] y of Vaccine 00:00:00 [facility] Pneumococcal 2018-02-18 Completed [facility] o f Polysaccharide, 00:00:00 [place] [facility] PPSV23 (PNEUMOVAX) [place] Influenza Virus 2018-02-18 Completed [facility] y of Vaccine 00:00:00 [facility] Pneumococcal 2018-02-18 Completed University o f Polysaccharide, 00:00:00 [facility] ical PPSV23 (PNEUMOVAX) [place] Influenza Virus 2018-02-18 Completed [facility]it y of Vaccine 00:00:00 [facility] Pneumococcal 2018-02-18 Completed University o f Polysaccharide, 00:00:00 [facility] ical PPSV23 (PNEUMOVAX) Branch Influenza Virus 2018-02-18 Completed [facility]it y of Vaccine 00:00:00 [facility] Pneumococcal 2018-02-18 Completed [facility] o f Polysaccharide, 00:00:00 [place] [facility] PPSV23 (PNEUMOVAX) Branch Influenza Virus 2018-02-18 Completed [facility]it y of Vaccine 00:00:00 [facility] Pneumococcal 2018-02-18 Completed [facility] o f Polysaccharide, 00:00:00 [place] [facility] PPSV23 (PNEUMOVAX) Branch Influenza Virus 2018-02-18 Completed [facility] y of Vaccine 00:00:00 [facility] Pneumococcal 2018-02-18 Completed [facility] o f Polysaccharide, 00:00:00 [place] [facility] PPSV23 (PNEUMOVAX) [place] Influenza Virus 2018-02-18 Completed [facility] y of Vaccine 00:00:00 [facility] Pneumococcal 2018-02-18 Completed [facility] o f Polysaccharide, 00:00:00 [place] [facility] PPSV23 (PNEUMOVAX) [place] Influenza Virus 2018-02-18 Completed [facility] y of Vaccine 00:00:00 [facility] Pneumococcal 2018-02-18 Completed [facility] o f Polysaccharide, 00:00:00 [place] [facility] PPSV23 (PNEUMOVAX) Branch Influenza Virus 2018-02-18 Completed [facility] y of Vaccine 00:00:00 [facility] Pneumococcal 2018-02-18 Completed [facility] o f Polysaccharide, 00:00:00 [place] [facility] PPSV23 (PNEUMOVAX) Branch Influenza Virus 2018-02-18 Completed [facility] y of Vaccine 00:00:00 [facility] Pneumococcal 2018-02-18 Completed [facility] o f Polysaccharide, 00:00:00 [place] [facility] PPSV23 (PNEUMOVAX) Branch Influenza Virus 2018-02-18 Completed [facility] y of Vaccine 00:00:00 [facility] Pneumococcal 2018-02-18 Completed [facility] o f Polysaccharide, 00:00:00 [place] [facility] PPSV23 (PNEUMOVAX) Branch Influenza Virus 2018-02-18 Completed [facility] y of Vaccine 00:00:00 [facility] Pneumococcal 2018-02-18 Completed [facility] o f Polysaccharide, 00:00:00 [place] [facility] PPSV23 (PNEUMOVAX) Branch Influenza Virus 2018-02-18 Completed [facility] y of Vaccine 00:00:00 [facility] Pneumococcal 2018-02-18 Completed [facility] o f Polysaccharide, 00:00:00 [place] [facility] PPSV23 (PNEUMOVAX) Branch Influenza Virus 2018-02-18 Completed [facility] y of Vaccine 00:00:00 [facility] Pneumococcal 2018-02-18 Completed [facility] o f Polysaccharide, 00:00:00 [place] [facility] PPSV23 (PNEUMOVAX) Branch Influenza Virus 2018-02-18 Completed [facility] y of Vaccine 00:00:00 [facility] Pneumococcal 2018-02-18 Completed [facility] o f Polysaccharide, 00:00:00 [place] [facility] PPSV23 (PNEUMOVAX) Branch Influenza Virus 2018-02-18 Completed [facility]it y of Vaccine 00:00:00 [facility] Pneumococcal 2018-02-18 Completed [facility] o f Polysaccharide, 00:00:00 [place] [facility] PPSV23 (PNEUMOVAX) Branch Influenza Virus 2018-02-18 Completed [facility] y of Vaccine 00:00:00 [facility] Pneumococcal 2018-02-18 Completed [facility] o f Polysaccharide, 00:00:00 [place] [facility] PPSV23 (PNEUMOVAX) Branch Influenza Virus 2018-02-18 Completed [facility] y of Vaccine 00:00:00 [facility] Pneumococcal 2018-02-18 Completed [facility] o f Polysaccharide, 00:00:00 [place] [facility] PPSV23 (PNEUMOVAX) Branch Influenza Virus 2018-02-18 Completed [facility]it y of Vaccine 00:00:00 [facility] Pneumococcal 2018-02-18 Completed [facility] o f Polysaccharide, 00:00:00 [place] [facility] PPSV23 (PNEUMOVAX) Branch Influenza Virus 2018-02-18 Completed [facility] y of Vaccine 00:00:00 [facility] Pneumococcal 2018-02-18 Completed [facility] o f Polysaccharide, 00:00:00 [place] [facility] PPSV23 (PNEUMOVAX) Branch Influenza Virus 2018-02-18 Completed [facility]it y of Vaccine 00:00:00 [facility] Pneumococcal 2018-02-18 Completed [facility] o f Polysaccharide, 00:00:00 [place] [facility] PPSV23 (PNEUMOVAX) Branch Influenza Virus 2018-02-18 Completed [facility] y of Vaccine 00:00:00 [facility] Pneumococcal 2018-02-18 Completed [facility] o f Polysaccharide, 00:00:00 [place] [facility] PPSV23 (PNEUMOVAX) Branch Influenza Virus 2018-02-18 Completed [facility] y of Vaccine 00:00:00 [facility] Pneumococcal 2018-02-18 Completed [facility] o f Polysaccharide, 00:00:00 [facility] ical PPSV23 (PNEUMOVAX) Branch Influenza Virus 2018-02-18 Completed [facility]it y of Vaccine 00:00:00 [facility] Pneumococcal 2018-02-18 Completed [facility] o f Polysaccharide, 00:00:00 [place] [facility] PPSV23 (PNEUMOVAX) Branch Influenza Virus 2018-02-18 Completed [facility] y of Vaccine 00:00:00 [facility] Pneumococcal 2018-02-18 Completed [facility] o f Polysaccharide, 00:00:00 [place] [facility] PPSV23 (PNEUMOVAX) Branch Influenza Virus 2018-02-18 Completed [facility] y of Vaccine 00:00:00 [facility] Pneumococcal 2018-02-18 Completed [facility] o f Polysaccharide, 00:00:00 [place] [facility] PPSV23 (PNEUMOVAX) Branch Influenza Virus 2018-02-18 Completed [facility] y of Vaccine 00:00:00 [facility] Pneumococcal 2018-02-18 Completed [facility] o f Polysaccharide, 00:00:00 [place] [facility] PPSV23 (PNEUMOVAX) Branch Influenza Virus 2018-02-18 Completed [facility] y of Vaccine 00:00:00 [facility] Pneumococcal 2018-02-18 Completed [facility] o f Polysaccharide, 00:00:00 [place] [facility] PPSV23 (PNEUMOVAX) Branch Influenza Virus 2018-02-18 Completed [facility] y of Vaccine 00:00:00 [facility] Pneumococcal 2018-02-18 Completed [facility] o f Polysaccharide, 00:00:00 [place] [facility] PPSV23 (PNEUMOVAX) Branch Influenza Virus 2018-02-18 Completed [facility] y of Vaccine 00:00:00 [facility] Pneumococcal 2018-02-18 Completed [facility] o f Polysaccharide, 00:00:00 [place] [facility] PPSV23 (PNEUMOVAX) Branch Influenza Virus 2018-02-18 Completed [facility] y of Vaccine 00:00:00 [facility] Pneumococcal 2018-02-18 Completed [facility] o f Polysaccharide, 00:00:00 [place] [facility] PPSV23 (PNEUMOVAX) Branch Influenza Virus 2018-02-18 Completed [facility] y of Vaccine 00:00:00 [facility] Pneumococcal 2018-02-18 Completed [facility] o f Polysaccharide, 00:00:00 [facility] ical PPSV23 (PNEUMOVAX) Branch Influenza Virus 2018-02-18 Completed [facility]it y of Vaccine 00:00:00 [facility] Pneumococcal 2018-02-18 Completed University o f Polysaccharide, 00:00:00 [facility] ical PPSV23 (PNEUMOVAX) [place] Influenza Virus 2018-02-18 Completed [facility]it y of Vaccine 00:00:00 [facility] Pneumococcal 2018-02-18 Completed University o f Polysaccharide, 00:00:00 [facility] ical PPSV23 (PNEUMOVAX) Branch Influenza Virus 2018-02-18 Completed [facility] y of Vaccine 00:00:00 [facility] Pneumococcal 2018-02-18 Completed [facility] o f Polysaccharide, 00:00:00 [place] [facility] PPSV23 (PNEUMOVAX) Branch Influenza Virus 2018-02-18 Completed [facility] y of Vaccine 00:00:00 [facility] Pneumococcal 2018-02-18 Completed [facility] o f Polysaccharide, 00:00:00 [place] [facility] PPSV23 (PNEUMOVAX) [place] Influenza Virus 2018-02-18 Completed [facility] y of Vaccine 00:00:00 [facility] Pneumococcal 2018-02-18 Completed [facility] o f Polysaccharide, 00:00:00 [place] [facility] PPSV23 (PNEUMOVAX) Branch Influenza Virus 2018-02-18 Completed [facility] y of Vaccine 00:00:00 [facility] Pneumococcal 2018-02-18 Completed [facility] o f Polysaccharide, 00:00:00 [place] [facility] PPSV23 (PNEUMOVAX) Branch Influenza Virus 2018-02-18 Completed [facility] y of Vaccine 00:00:00 [facility] Pneumococcal 2018-02-18 Completed [facility] o f Polysaccharide, 00:00:00 [place] [facility] PPSV23 (PNEUMOVAX) Branch Influenza Virus 2018-02-18 Completed [facility] y of Vaccine 00:00:00 [facility] Pneumococcal 2018-02-18 Completed [facility] o f Polysaccharide, 00:00:00 [place] [facility] PPSV23 (PNEUMOVAX) Branch Influenza Virus 2018-02-18 Completed [facility] y of Vaccine 00:00:00 [facility] Pneumococcal 2018-02-18 Completed [facility] o f Polysaccharide, 00:00:00 [place] [facility] PPSV23 (PNEUMOVAX) Branch Influenza Virus 2018-02-18 Completed [facility] y of Vaccine 00:00:00 [facility] Pneumococcal 2018-02-18 Completed [facility] o f Polysaccharide, 00:00:00 [place] [facility] PPSV23 (PNEUMOVAX) Branch Influenza Virus 2018-02-18 Completed [facility] y of Vaccine 00:00:00 [facility] Pneumococcal 2018-02-18 Completed [facility] o f Polysaccharide, 00:00:00 [place] [facility] PPSV23 (PNEUMOVAX) Branch Influenza Virus 2018-02-18 Completed [facility] y of Vaccine 00:00:00 [facility] Pneumococcal 2018-02-18 Completed [facility] o f Polysaccharide, 00:00:00 [place] [facility] PPSV23 (PNEUMOVAX) Branch Influenza Virus 2018-02-18 Completed [facility] y of Vaccine 00:00:00 [facility] Pneumococcal 2018-02-18 Completed [facility] o f Polysaccharide, 00:00:00 [place] [facility] PPSV23 (PNEUMOVAX) Branch Influenza Virus 2018-02-18 Completed [facility] y of Vaccine 00:00:00 [facility] Pneumococcal 2018-02-18 Completed [facility] o f Polysaccharide, 00:00:00 [place] [facility] PPSV23 (PNEUMOVAX) [place] Influenza Virus 2018-02-18 Completed [facility] y of Vaccine 00:00:00 [facility] Pneumococcal 2018-02-18 Completed [facility] o f Polysaccharide, 00:00:00 [place] [facility] PPSV23 (PNEUMOVAX) Branch Influenza Virus 2018-02-18 Completed [facility] y of Vaccine 00:00:00 [facility] Pneumococcal 2018-02-18 Completed [facility] o f Polysaccharide, 00:00:00 [place] [facility] PPSV23 (PNEUMOVAX) Branch Influenza Virus 2018-02-18 Completed [facility] y of Vaccine 00:00:00 [facility] Pneumococcal 2018-02-18 Completed [facility] o f Polysaccharide, 00:00:00 [place] [facility] PPSV23 (PNEUMOVAX) Branch Influenza Virus 2018-02-18 Completed [facility] y of Vaccine 00:00:00 [facility] Pneumococcal 2018-02-18 Completed [facility] o f Polysaccharide, 00:00:00 [place] [facility] PPSV23 (PNEUMOVAX) [place] Influenza Virus 2018-02-18 Completed [facility] y of Vaccine 00:00:00 [facility] Pneumococcal 2018-02-18 Completed [facility] o f Polysaccharide, 00:00:00 [facility] ical PPSV23 (PNEUMOVAX) [place] Influenza Virus 2018-02-18 Completed [facility] y of Vaccine 00:00:00 [facility] Pneumococcal 2018-02-18 Completed [facility] o f Polysaccharide, 00:00:00 [facility] ical PPSV23 (PNEUMOVAX) [place] Influenza Virus 2018-02-18 Completed [facility] y of Vaccine 00:00:00 [facility] Pneumococcal 2018-02-18 Completed [facility] o f Polysaccharide, 00:00:00 [place] [facility] PPSV23 (PNEUMOVAX) [place] Influenza Virus 2018-02-18 Completed [facility] y of Vaccine 00:00:00 [facility] Pneumococcal 2018-02-18 Completed [facility] o f Polysaccharide, 00:00:00 [place] [facility] PPSV23 (PNEUMOVAX) [place] Influenza Virus 2018-02-18 Completed [facility] y of Vaccine 00:00:00 [facility] Pneumococcal 2018-02-18 Completed [facility] o f Polysaccharide, 00:00:00 [place] [facility] PPSV23 (PNEUMOVAX) [place] Influenza Virus 2018-02-18 Completed [facility] y of Vaccine 00:00:00 [facility] Pneumococcal 2018-02-18 Completed [facility] o f Polysaccharide, 00:00:00 [place] [facility] PPSV23 (PNEUMOVAX) [place] Influenza Virus 2008-03-19 Completed [facility] y of Vaccine 00:00:00 [facility] Influenza Virus 2008-03-19 Completed [facility] y of Vaccine 00:00:00 [facility] Influenza Virus 2008-03-19 Completed [facility] y of Vaccine 00:00:00 [facility] Influenza Virus 2008-03-19 Completed [facility] y of Vaccine 00:00:00 [facility] Influenza Virus 2008-03-19 Completed [facility] y of Vaccine 00:00:00 [facility] Influenza Virus 2008-03-19 Completed [facility] y of Vaccine 00:00:00 [facility] Influenza Virus 2008-03-19 Completed [facility] y of Vaccine 00:00:00 [facility] Influenza Virus 2008-03-19 Completed [facility] y of Vaccine 00:00:00 [facility] Influenza Virus 2008-03-19 Completed [facility] y of Vaccine 00:00:00 [facility] Influenza Virus 2008-03-19 Completed [facility] y of Vaccine 00:00:00 [facility] Influenza Virus 2008-03-19 Completed [facility] y of Vaccine 00:00:00 [facility] Influenza Virus 2008-03-19 Completed [facility] y of Vaccine 00:00:00 [facility] Influenza Virus 2008-03-19 Completed [facility] y of Vaccine 00:00:00 [facility] Influenza Virus 2008-03-19 Completed [facility] y of Vaccine 00:00:00 [facility] Influenza Virus 2008-03-19 Completed [facility] y of Vaccine 00:00:00 [facility] Influenza Virus 2008-03-19 Completed [facility] y of Vaccine 00:00:00 [facility] Influenza Virus 2008-03-19 Completed [facility] y of Vaccine 00:00:00 [facility] Influenza Virus 2008-03-19 Completed [facility] y of Vaccine 00:00:00 [facility] Influenza Virus 2008-03-19 Completed [facility] y of Vaccine 00:00:00 [facility] Influenza Virus 2008-03-19 Completed [facility] y of Vaccine 00:00:00 [facility] Influenza Virus 2008-03-19 Completed [facility] y of Vaccine 00:00:00 [facility] Influenza Virus 2008-03-19 Completed [facility] y of Vaccine 00:00:00 [facility] Influenza Virus 2008-03-19 Completed [facility] y of Vaccine 00:00:00 [facility] Influenza Virus 2008-03-19 Completed [facility] y of Vaccine 00:00:00 [facility] Influenza Virus 2008-03-19 Completed [facility] y of Vaccine 00:00:00 [facility] Influenza Virus 2008-03-19 Completed [facility] y of Vaccine 00:00:00 [facility] Influenza Virus 2008-03-19 Completed [facility] y of Vaccine 00:00:00 [facility] Influenza Virus 2008-03-19 Completed [facility] y of Vaccine 00:00:00 [facility] Influenza Virus 2008-03-19 Completed [facility] y of Vaccine 00:00:00 [facility] Influenza Virus 2008-03-19 Completed [facility] y of Vaccine 00:00:00 [facility] Influenza Virus 2008-03-19 Completed [facility] y of Vaccine 00:00:00 [facility] Influenza Virus 2008-03-19 Completed [facility] y of Vaccine 00:00:00 [facility] Influenza Virus 2008-03-19 Completed [facility] y of Vaccine 00:00:00 [facility] Influenza Virus 2008-03-19 Completed [facility] y of Vaccine 00:00:00 [facility] Influenza Virus 2008-03-19 Completed [facility] y of Vaccine 00:00:00 [facility] Influenza Virus 2008-03-19 Completed [facility] y of Vaccine 00:00:00 [facility] Influenza Virus 2008-03-19 Completed [facility] y of Vaccine 00:00:00 [facility] Influenza Virus 2008-03-19 Completed [facility] y of Vaccine 00:00:00 [facility] Influenza Virus 2008-03-19 Completed [facility] y of Vaccine 00:00:00 [facility] Influenza Virus 2008-03-19 Completed [facility] y of Vaccine 00:00:00 [facility] Influenza Virus 2008-03-19 Completed [facility] y of Vaccine 00:00:00 [facility] Vital Signs Vital Name Observation Time Observation Value Comments Source Systolic blood 2021-01-04 100 mm[Hg] [facility] pressure 20:34:00 [facility] Diastolic blood 2021-01-04 70 mm[Hg] [place] o f pressure 20:34:00 [facility] Heart rate 2021-01-04 69 /min [facility] 20:34:00 [facility] Body temperature 2021-01-04 36.61 [place] [facility] 20:34:00 [facility] Respiratory rate 2021-01-04 18 /min [facility] 20:34:00 [facility] Oxygen saturation 2021-01-04 96 /min [facility] Arterial blood 20:34:00 [facility] by Pulse oximetry Branch Body height 2021-01-02 170.2 cm [facility] 02:19:00 [facility] Body weight 2021-01-02 75.978 kg University of 02:19:00 [facility] BMI 2021-01-02 26.23 kg/m2 [facility] 02:19:00 [facility] Systolic blood 2020-12-16 112 mm[Hg] [facility] pressure 20:56:00 [facility] Diastolic blood 2020-12-16 69 mm[Hg] [facility] o f pressure 20:56:00 [facility] Heart rate 2020-12-16 69 /min [facility] 20:56:00 [facility] Body temperature 2020-12-16 37.11 [place] [facility] 20:56:00 [facility] Respiratory rate 2020-12-16 18 /min [facility] 20:56:00 [facility] Oxygen saturation 2020-12-16 95 /min [facility] in Arterial blood 20:56:00 [facility] by Pulse oximetry Branch Body weight 2020-12-15 76.476 kg [facility] 15:06:00 [facility] BMI 2020-12-15 26.41 kg/m2 University [facility] 15:06:00 [facility] Systolic blood 2020-10-12 141 mm[Hg] [facility] pressure 19:30:00 [facility] Diastolic blood 2020-10-12 90 mm[Hg] [facility] o f pressure 19:30:00 [facility] Heart rate 2020-10-12 99 /min [facility] 19:28:00 [facility] Body temperature 2020-10-12 36 [place] [facility] 19:28:00 [facility] Body weight 2020-10-12 78.472 kg University of 19:28:00 [facility] BMI 2020-10-12 27.10 kg/m2 [facility] 19:28:00 [facility] Oxygen saturation 2020-10-12 99 /min [facility] in Arterial blood 19:28:00 [facility] by Pulse oximetry Branch Systolic blood 2020-10-06 136 mm[Hg] [facility] pressure 16:17:00 [facility] Diastolic blood 2020-10-06 84 mm[Hg] [facility] o f pressure 16:17:00 [facility] Heart rate 2020-10-06 93 /min [facility] 16:17:00 [facility] Body temperature 2020-10-06 35.89 [place] [facility] 16:17:00 [facility] Body weight 2020-10-06 78.472 kg [facility] 16:17:00 [facility] [place] BMI 2020-10-06 27.10 kg/m2 University [facility] 16:17:00 [facility] [place] Oxygen saturation 2020-10-06 99 /min University of in Arterial blood 16:17:00 [facility] uriel by Pulse oximetry Branch Systolic blood 2020-10-06 136 mm[Hg] University of pressure 16:17:00 [facility] [place] Diastolic blood 2020-10-06 84 mm[Hg] University o f pressure 16:17:00 [facility] [place] Heart rate 2020-10-06 93 /min University of 16:17:00 [facility] [place] Body temperature 2020-10-06 35.89 [place] University of 16:17:00 [facility] [place] Body weight 2020-10-06 78.472 kg University of 16:17:00 [facility] [place] BMI 2020-10-06 27.10 kg/m2 University of 16:17:00 [facility] [place] Oxygen saturation 2020-10-06 99 /min University [facility] in Arterial blood 16:17:00 [facility] by Pulse oximetry Branch Systolic blood 2020-09-29 136 mm[Hg] University [facility] pressure 01:00:00 [facility] [place] Diastolic blood 2020-09-29 78 mm[Hg] University o f pressure 01:00:00 [facility] [place] Heart rate 2020-09-29 89 /min University of 01:00:00 [facility] [place] Respiratory rate 2020-09-29 17 /min University of 01:00:00 [facility] [place] Oxygen saturation 2020-09-29 98 /min [facility] in Arterial blood 01:00:00 [facility] by Pulse oximetry Branch Body temperature 2020-09-28 36.44 [place] University [facility] 22:33:00 [facility] [place] Body weight 2020-09-28 78.472 kg University of 22:33:00 [facility] [place] BMI 2020-09-28 27.10 kg/m2 University of 22:33:00 [facility] [place] Body temperature 2020-09-26 5 [place] University of 17:00:00 [facility] [place] Systolic blood 2020-09-26 103 mm[Hg] University of pressure 16:30:00 [facility] [place] Diastolic blood 2020-09-26 69 mm[Hg] University o f pressure 16:30:00 [facility] [place] Heart rate 2020-09-26 80 /min University of 16:30:00 [facility] [place] Respiratory rate 2020-09-26 16 /min University of 16:30:00 [facility] [place] Oxygen saturation 2020-09-26 92 /min [facility] in Arterial blood 16:30:00 [facility] by Pulse oximetry Branch Body weight 2020-09-26 80.882 kg University of 08:57:00 [facility] [place] BMI 2020-09-26 27.93 kg/m2 University of 08:57:00 [facility] [place] Body height 2020-09-24 170.2 cm pt is a University of 02:35:00 bilateral [facility] amputie. prior Branch anita is as noted. pt does not know how tall he is at this time. Systolic blood 2020-09-07 119 mm[Hg] University of pressure 16:03:00 [facility] [place] Diastolic blood 2020-09-07 79 mm[Hg] University o f pressure 16:03:00 [facility] [place] Heart rate 2020-09-07 100 /min University of 16:03:00 [facility] [place] Body temperature 2020-09-07 36.67 [place] University of 16:03:00 [facility] [place] Respiratory rate 2020-09-07 18 /min University of 16:03:00 [facility] [place] Oxygen saturation 2020-09-07 98 /min University in Arterial blood 16:03:00 [facility] by Pulse oximetry Branch Body height 2020-09-02 170.2 cm University of 22:04:00 [facility] [place] Body weight 2020-09-02 74.844 kg University of 22:04:00 [facility] [place] BMI 2020-09-02 25.84 kg/m2 University of 22:04:00 [facility] [place] Systolic blood 2020-08-26 108 mm[Hg] University of pressure 16:00:00 [facility] [place] Diastolic blood 2020-08-26 72 mm[Hg] University o f pressure 16:00:00 [facility] [place] Heart rate 2020-08-26 87 /min University of 16:00:00 [facility] [place] Body temperature 2020-08-26 36.83 [place] University of 16:00:00 [facility] [place] Respiratory rate 2020-08-26 20 /min University of 16:00:00 [facility] [place] Body height 2020-08-26 167.6 cm University of 16:00:00 [facility] [place] Body weight 2020-08-26 74.844 kg University of 16:00:00 [facility] [place] BMI 2020-08-26 26.63 kg/m2 University of 16:00:00 [facility] [place] Oxygen saturation 2020-08-26 99 /min [facility] in Arterial blood 16:00:00 [facility] by Pulse oximetry Branch Systolic blood 2020-08-21 98 mm[Hg] University of pressure 13:57:00 [facility] Branch Diastolic blood 2020-08-21 66 mm[Hg] University o f pressure 13:57:00 [facility] [place] Heart rate 2020-08-21 69 /min University of 13:57:00 [facility] [place] Body temperature 2020-08-21 36.17 [place] University of 13:57:00 [facility] [place] Respiratory rate 2020-08-21 20 /min University of 13:57:00 [facility] [place] Body height 2020-08-21 167.6 cm University of 13:57:00 [facility] [place] Oxygen saturation 2020-08-21 98 /min [facility] in Arterial blood 13:57:00 [place] [facility] by Pulse oximetry Branch Systolic blood 2020-08-06 101 mm[Hg] University of pressure 20:39:00 [facility] [place] Diastolic blood 2020-08-06 61 mm[Hg] University o f pressure 20:39:00 [facility] [place] Heart rate 2020-08-06 78 /min University of 20:39:00 [facility] [place] Body temperature 2020-08-06 36.44 [place] University of 20:39:00 [facility] [place] Respiratory rate 2020-08-06 18 /min University of 20:39:00 [facility] [place] Oxygen saturation 2020-08-06 93 /min [facility] in Arterial blood 20:39:00 [place] [facility] by Pulse oximetry Branch Body height 2020-07-31 170.2 cm University of 05:00:00 [facility] [place] Body weight 2020-07-31 95.255 kg University of 05:00:00 [facility] [place] BMI 2020-07-31 32.89 kg/m2 University of 05:00:00 [facility] [place] Systolic blood 2020-07-20 118 mm[Hg] University of pressure 22:48:00 [facility] [place] Diastolic blood 2020-07-20 74 mm[Hg] University o f pressure 22:48:00 [facility] [place] Heart rate 2020-07-20 81 /min University of 22:48:00 [facility] [place] Body temperature 2020-07-20 35.17 [place] University of 22:48:00 [facility] [place] Respiratory rate 2020-07-20 18 /min University of 22:48:00 [facility] [place] Oxygen saturation 2020-07-20 99 /min [facility] in Arterial blood 22:48:00 [facility] by Pulse oximetry Branch Body height 2020-07-15 170.2 cm University of 04:24:00 [facility] [place] Body weight 2020-07-15 90.719 kg University of 04:24:00 [facility] [place] BMI 2020-07-15 31.32 kg/m2 University of 04:24:00 [facility] [place] Systolic blood 2020-06-11 119 mm[Hg] University of pressure 19:50:00 [facility] [place] Diastolic blood 2020-06-11 74 mm[Hg] University o f pressure 19:50:00 [facility] [place] Heart rate 2020-06-11 94 /min University of 19:50:00 [facility] [place] Body temperature 2020-06-11 36.89 [place] University of 19:50:00 [facility] [place] Body height 2020-06-11 170.2 cm University of 19:50:00 [facility] [place] Body weight 2020-06-11 77.111 kg University of 19:50:00 [facility] [place] BMI 2020-06-11 26.63 kg/m2 University of 19:50:00 [facility] [place] Oxygen saturation 2020-06-11 100 /min [facility] in Arterial blood 19:50:00 [facility] by Pulse oximetry Branch Systolic blood 2020-06-02 104 mm[Hg] University of pressure 17:25:00 [facility] [place] Diastolic blood 2020-06-02 66 mm[Hg] University o f pressure 17:25:00 [facility] [place] Heart rate 2020-06-02 103 /min University of 17:25:00 [facility] [place] Body temperature 2020-06-02 36.5 [place] University of 17:25:00 [facility] [place] Respiratory rate 2020-06-02 17 /min University of 17:25:00 [facility] [place] Oxygen saturation 2020-06-02 94 /min [facility] in Arterial blood 17:25:00 [facility] by Pulse oximetry Branch Body height 2020-05-29 170.2 cm University of 15:17:00 [facility] [place] Body weight 2020-05-29 74.844 kg University of 15:17:00 [facility] [place] BMI 2020-05-29 25.84 kg/m2 University of 15:17:00 [facility] [place] Systolic blood 2020-04-23 122 mm[Hg] [facility] of pressure 20:03:00 [facility] [place] Diastolic blood 2020-04-23 78 mm[Hg] University o f pressure 20:03:00 [facility] [place] Heart rate 2020-04-23 96 /min University of 20:03:00 [facility] [place] Body temperature 2020-04-23 36.44 [place] University of 20:03:00 [facility] [place] Body height 2020-04-23 170.2 cm University of 20:03:00 [facility] [place] Oxygen saturation 2020-04-23 98 /min [facility] in Arterial blood 20:03:00 [facility] by Pulse oximetry Branch Systolic blood 2020-04-09 87 mm[Hg] University [facility] pressure 20:13:00 [facility] [place] Diastolic blood 2020-04-09 59 mm[Hg] University o f pressure 20:13:00 [facility] [place] Heart rate 2020-04-09 94 /min University of 20:13:00 [facility] [place] Body height 2020-04-09 170.2 cm University of 20:13:00 [facility] [place] Body weight 2020-04-09 74.39 kg University of 20:13:00 [facility] [place] BMI 2020-04-09 25.69 kg/m2 University [facility] 20:13:00 [facility] [place] Oxygen saturation 2020-04-09 97 /min [facility] in Arterial blood 20:13:00 [facility] by Pulse oximetry Branch Systolic blood 2020-03-26 101 mm[Hg] [facility] pressure 21:36:00 [facility] [place] Diastolic blood 2020-03-26 67 mm[Hg] University o [facility] pressure 21:36:00 [facility] [place] Heart rate 2020-03-26 86 /min University [facility] 21:36:00 [facility] [place] Body temperature 2020-03-26 36.39 [place] University [facility] 21:36:00 [facility] [place] Respiratory rate 2020-03-26 18 /min University of 21:36:00 [facility] [place] Oxygen saturation 2020-03-26 97 /min [facility] in Arterial blood 21:36:00 [facility] by Pulse oximetry Branch Body height 2020-03-18 170.2 cm University of 00:50:00 [facility] [place] Body weight 2020-03-18 79.379 kg University of 00:50:00 [facility] [place] BMI 2020-03-18 27.41 kg/m2 University [facility] 00:50:00 [facility] [place] Respiratory rate 2020-02-06 18 /min University [facility] 01:01:00 [facility] [place] Oxygen saturation 2020-02-06 93 /min [facility] in Arterial blood 01:01:00 [facility] by Pulse oximetry Branch Systolic blood 2020-02-05 114 mm[Hg] [facility] pressure 21:00:00 [facility] Branch Diastolic blood 2020-02-05 73 mm[Hg] University o f pressure 21:00:00 [facility] [place] Heart rate 2020-02-05 81 /min University [facility] 21:00:00 [facility] [place] Body temperature 2020-02-05 36.5 [place] University [facility] 21:00:00 [facility] [place] Body weight 2020-02-05 81.965 kg University of 09:07:00 [facility] [place] BMI 2020-02-05 28.30 kg/m2 University [facility] 09:07:00 [facility] [place] Systolic blood 2019-11-21 126 mm[Hg] [facility] pressure 15:56:00 [facility] [place] Diastolic blood 2019-11-21 78 mm[Hg] University o f pressure 15:56:00 [facility] [place] Heart rate 2019-11-21 77 /min University of 15:56:00 [facility] [place] Body temperature 2019-11-21 36.11 [place] University of 15:56:00 [facility] [place] Respiratory rate 2019-11-21 18 /min University of 15:56:00 [facility] [place] Oxygen saturation 2019-11-21 98 /min [facility] in Arterial blood 15:56:00 [facility] by Pulse oximetry Branch Body weight 2019-11-21 78.971 kg University of 08:21:00 [facility] [place] BMI 2019-11-21 27.27 kg/m2 University of 08:21:00 [facility] [place] Body height 2019-11-16 170.2 cm University of 21:44:00 [facility] [place] Systolic blood 2019-09-18 113 mm[Hg] [facility] pressure 05:15:00 [facility] Branch Diastolic blood 2019-09-18 80 mm[Hg] University o f pressure 05:15:00 [facility] Branch Heart rate 2019-09-18 91 /min University of 05:15:00 [facility] Branch Respiratory rate 2019-09-18 21 /min [facility] 05:15:00 [facility] Branch Oxygen saturation 2019-09-18 100 /min [facility] in Arterial blood 05:15:00 [place] [facility] by Pulse oximetry Branch Body temperature 2019-09-18 36.94 [place] University of 01:26:00 [facility] Branch Body height 2019-09-18 170.2 cm University of 01:26:00 [facility] Branch Body weight 2019-09-18 72.576 kg University of 01:26:00 [facility] Branch BMI 2019-09-18 25.06 kg/m2 University of 01:26:00 [facility] Branch Systolic blood 2019-08-15 150 mm[Hg] University [facility] pressure 19:26:52 [facility] [place] Diastolic blood 2019-08-15 78 mm[Hg] University o f pressure 19:26:52 [facility] Branch Heart rate 2019-08-15 88 /min University of 19:26:52 [facility] Branch Respiratory rate 2019-08-15 18 /min University of 19:26:52 [facility] [place] Oxygen saturation 2019-08-15 100 /min [facility] in Arterial blood 19:26:52 [facility] uriel by Pulse oximetry Branch Body temperature 2019-08-15 36.5 [place] University of 16:56:00 [facility] Body weight 2019-08-15 72.576 kg University of 16:56:00 [facility] [place] BMI 2019-08-15 25.06 kg/m2 University [facility] 16:56:00 [facility] [place] Systolic blood 2019-08-09 100 mm[Hg] [facility] pressure 16:00:00 [facility] Diastolic blood 2019-08-09 66 mm[Hg] University o f pressure 16:00:00 [facility] Branch Heart rate 2019-08-09 88 /min [facility] 16:00:00 [facility] [place] Body temperature 2019-08-09 36.56 [place] University of 16:00:00 [facility] Oxygen saturation 2019-08-09 98 /min [facility] in Arterial blood 16:00:00 [place] [facility] by Pulse oximetry Branch Respiratory rate 2019-08-09 18 /min [facility] 13:31:00 [facility] Branch Body height 2019-08-06 170.2 cm University [facility] 22:25:00 [facility] [place] Body weight 2019-08-06 75.978 kg University of 22:25:00 [facility] [place] BMI 2019-08-06 26.23 kg/m2 University [facility] 22:25:00 [facility] [place] Systolic blood 2019-07-19 98 mm[Hg] [facility] pressure 01:02:00 [facility] [place] Diastolic blood 2019-07-19 55 mm[Hg] University o [facility] pressure 01:02:00 [facility] Heart rate 2019-07-19 75 /min [facility] 01:02:00 [facility] [place] Body temperature 2019-07-19 36.39 [place] [facility] 01:02:00 [facility] [place] Respiratory rate 2019-07-19 18 /min University [facility] 01:02:00 [facility] [place] Oxygen saturation 2019-07-19 95 /min [facility] in Arterial blood 01:02:00 [facility] by Pulse oximetry Branch Body height 2019-07-18 170.2 cm University [facility] 19:06:00 [facility] [place] Body weight 2019-07-18 78.472 kg University of 19:06:00 [facility] [place] BMI 2019-07-18 27.10 kg/m2 University [facility] 19:06:00 [facility] [place] Systolic blood 2019-06-26 114 mm[Hg] [facility] pressure 22:23:00 [facility] [place] Diastolic blood 2019-06-26 76 mm[Hg] University o [facility] pressure 22:23:00 [facility] Heart rate 2019-06-26 83 /min [facility] 22:23:00 [facility] Body temperature 2019-06-26 36.39 [place] University [facility] 22:23:00 [facility] Respiratory rate 2019-06-26 18 /min University of :23:00 [facility] [place] Oxygen saturation 2019-06-26 99 /min [facility] in Arterial blood 22:23:00 [facility] by Pulse oximetry Branch Body weight 2019-06-26 78.064 kg University of 09:43:00 [facility] [place] BMI 2019-06-26 26.95 kg/m2 University of 09:43:00 [facility] Body height 2019-06-24 170.2 cm University [facility] 20:53:00 [facility] Systolic blood 2019-02-06 121 mm[Hg] [facility] pressure 02:21:00 [facility] Diastolic blood 2019-02-06 81 mm[Hg] University o [facility] pressure 02:21:00 [facility] Heart rate 2019-02-06 77 /min [facility] 02:21:00 [facility] Respiratory rate 2019-02-06 23 /min [facility] 02:21:00 [facility] Oxygen saturation 2019-02-06 98 /min [facility] in Arterial blood 02:21:00 [place] [facility] by Pulse oximetry Branch Body temperature 2019-02-05 36.33 [place] University [facility] 22:27:00 [facility] Body height 2019-02-05 170.2 cm University of 22:27:00 [facility] Branch Body weight 2019-02-05 81.647 kg University of 22:27:00 [facility] [place] BMI 2019-02-05 28.19 kg/m2 University [facility] 22:27:00 [facility] [place] Systolic blood 2019-01-29 96 mm[Hg] University of pressure 16:40:00 [facility] Branch Diastolic blood 2019-01-29 66 mm[Hg] University o [facility] pressure 16:40:00 [facility] Heart rate 2019-01-29 80 /min [facility] 16:40:00 [facility] [place] Body temperature 2019-01-29 36.39 [place] University [facility] 16:40:00 [facility] Respiratory rate 2019-01-29 18 /min University [facility] 16:40:00 [facility] [place] Oxygen saturation 2019-01-29 99 /min [facility] in Arterial blood 16:40:00 [place] [facility] by Pulse oximetry Branch Body height 2019-01-28 170.2 cm University [facility] 16:45:00 [facility] [place] Body weight 2019-01-28 82.101 kg University of 16:45:00 [facility] [place] BMI 2019-01-28 28.35 kg/m2 University [facility] 16:45:00 [facility] [place] Systolic blood 2019-01-19 125 mm[Hg] [facility] pressure 17:20:00 [facility] Branch Diastolic blood 2019-01-19 69 mm[Hg] [facility] o [facility] pressure 17:20:00 [facility] Branch Heart rate 2019-01-19 76 /min [facility] 17:20:00 [facility] [place] Body temperature 2019-01-19 36.56 [place] University [facility] 17:20:00 [facility] Respiratory rate 2019-01-19 16 /min [facility] 17:20:00 [facility] Oxygen saturation 2019-01-19 100 /min [facility] in Arterial blood 17:20:00 [place] [facility] by Pulse oximetry Branch Body weight 2019-01-19 83.416 kg University [facility] 08:42:00 [facility] [place] BMI 2019-01-19 28.80 kg/m2 [facility] 08:42:00 [facility] [place] Body height 2019-01-19 170.2 cm [facility] 01:10:00 [facility] [place] Procedures Procedure Date / Time Performing Clinician Source Performed POCT GLUCOSE (AUTOMATED) 2021-01-04 Timur Gerardo [facility] 21:37:00 [facility] POCT GLUCOSE (AUTOMATED) 2021-01-04 Humaira [facility] 18:04:00 [facility] NM MYOCARDIUM PERFUSION 2021-01-04 Ninfa CastilloHortensia [facility] STRESS AND REST 17:24:00 [facility] POCT GLUCOSE (AUTOMATED) 2021-01-04 Humaira [facility] 12:51:00 [facility] ACUTE CARE VENOUS BLOOD 2021-01-04 Benji daisy [facility] GAS 12:38:00 [facility] COMP. METABOLIC PANEL 2021-01-04 Benji [facility] ([id number]) 10:28:00 [facility] CBC WITH DIFF 2021-01-04 Scott Granados [facility] 10:28:00 [facility] N-TERMINAL PRO-BNP 2021-01-04 Benji [facility] 10:28:00 [facility] POCT GLUCOSE (AUTOMATED) 2021-01-04 Edgardo [facility] 10:16:00 [facility] POCT GLUCOSE (AUTOMATED) 2021-01-04 Timur Gerardo [facility] 04:20:00 [facility] POCT GLUCOSE (AUTOMATED) 2021-01-04 Edgardo [facility] 00:23:00 [facility] POCT GLUCOSE (AUTOMATED) 2021-01-03 Edgardo [facility] 21:40:00 [facility] POCT GLUCOSE (AUTOMATED) 2021-01-03 Edgardo [facility] 16:29:00 [facility] POCT GLUCOSE (AUTOMATED) 2021-01-03 Edgardo [facility] 12:28:00 [facility] COMP. METABOLIC PANEL 2021-01-03 Benji [facility] ([id number]) 08:21:00 [facility] N-TERMINAL PRO-BNP 2021-01-03 Benji [facility] 08:21:00 [facility]OM[facility]OMATED[facility]OMATED[facility] PO[facility]COSE [facility]OMATED[facility] 2021[facility]01-02 [facility] 16:42:00 [facility] TROPONIN I 2021-01-02 Benji [facility] 14:03:00 [facility] POCT [facility]COSE [facility]AUTOMATED) [facility] 12:43[facility]00 [facility] [place] X[facility] CHEST 1 VW 2021-01-02 Benji [facility] 10:55:38 [facility] ACUTE CARE VENOUS BLOOD 2021-01-02 Benji [facility] GAS 08:48:00 [facility] PHOSPHORUS 2021-01-02 Benji [facility] 08:47:00 [facility] MAGNESIUM 2021-01-02 Benji [facility] 08:47:00 [facility] TROPONIN I 2021-01-02 Benji [facility] 08:47:00 [facility] COMP. METABOLIC PANEL 2021-01-02 Benji [facility] ([id number]) 08:47:00 [facility] CBC WITH DIFF 2021-01-02 Benji [facility] 08:47:00 [facility] N-TERMINAL PRO-BNP 2021-01-02 [facility] 08:47:00 [facility] POCT GLUCOSE (AUTOMATED) 2021-01-02 [place] [facility] 02:01:00 [facility] VITAMIN B12, LEVEL 2021-01-02 Benji [facility] 01:43:00 [facility] TROPONIN I 2021-01-02 Benji [facility] 01:43:00 [facility] VITAMIN D, 25-OH 2021-01-02 Benji [facility] [place] 01:43:00 [facility] HB ECG ROUTINE & RHYTHM 2021-01-02 Benji [facility] STRIP 01:30:[address] CHEST [facility]ULMONARY 2021-01-[facility] 20:55:00 [facility] ACUTE CARE ARTERIAL 2021-01-01 Juan José Siva [facility] BLOOD GAS 20:34:00 [facility] XR CHEST 1 VW 2021-01-01 Juan José [facility] 20:10:13 [facility] COVID-19 (ID NOW RAPID 2021-01-01 Siva Can [facility] TESTING) 19:36:00 [facility] LAB ONLY COVID 2021-01-01 Juan José [facility] INTERPRETATION 19:36:00 [facility] PHOSPHORUS 2021-01-01 Benji [facility] 19:34:00 [facility] URIC ACID 2021-01-01 Benji [facility] 19:34:00 [facility] MAGNESIUM 2021-01-01 Benji [facility] 19:34:00 [facility] TROPONIN I 2021-01-01 Juan José [facility] 19:34:00 [facility] THYROID STIMULATING 2021-01-01 Benji [facility] HORMONE 19:34:00 [facility] COMP. METABOLIC PANEL 2021-01-01 Juan José [facility] [facility] ([id number]) 19:34:00 [facility] LIPID PANEL 2021-01-01 Benji [facility] x[place] ([id number])(TOTAL 19:34:00 Medical Branch CHOLESTEROL, TRIGLYCERIDES, HDL) CBC WITH DIFF 2021-01-01 Juan José [facility] xas 19:34:00 Medical Branch GLYCOSYLATED HEMOGLOBIN 2021-01-01 Benji [facility] (A1C) 19:34:00 Medical Branch PROTHROMBIN TIME / INR 2021-01-01 Juan José [facility] 19:34:00 Medical Branch ACTIVATED PARTIAL 2021-01-01 Juan José [facility] THRMPLAS AMARILIS 19:34:00 Medical Branch N-TERMINAL PRO-BNP 2021-01-01 Juan José [facility] 19:34:00 Medical [place] POCT GLUCOSE (AUTOMATED) 2021-01-01 Juan José [facility] 19:28:00 [facility] EKG-12 LEAD 2021-01-01 Martha Rowe [facility] Te [place] 19:23:00 Medical Branch CONSENT/REFUSAL FOR 2021-01-01 Doctor Unassigned, [facility] DIAGNOSIS AND TREATMENT 19:12:03 Name [facility] POCT GLUCOSE (AUTOMATED) 2020-12-16 [facility] 20:56:00 [facility] POCT GLUCOSE (AUTOMATED) 2020-12-16 [facility] 16:49:00 Medical [place] POCT GLUCOSE (AUTOMATED) 2020-12-16 [facility] 12:31:00 [facility] BASIC METABOLIC PANEL 2020-12-[address] [facility] (NA, K, CL, CO2, 09:15:00 Medical Branch GLUCOSE, BUN, CREATININE, CA) N-TERMINAL PRO-BNP 2020-12-16 Ninfa Castillo K.HHortensia [facility] 09:15:00 [facility] POCT GLUCOSE (AUTOMATED) 2020-12-16 [facility] 00:43:00 [facility] POCT GLUCOSE (AUTOMATED) 2020-12-15 [facility] 21:40:00 [facility] GLYCOSYLATED HEMOGLOBIN 2020-12-15 [facility] (A1C) 17:07:00 [facility] POCT GLUCOSE (AUTOMATED) 2020-12-15 [facility] 16:51:00 [facility] TRANSTHORACIC ECHO (TTE) 2020-12-15 Janeth Goodson [facility] COMPLETE W/ CONTRAST 15:47:14 Medical [facility] POCT GLUCOSE (AUTOMATED) 2020-12-15 [facility] 13:46:00 Medical Branch TROPONIN I 2020-12-15 [facility] 10:07:00 Medical Branch LIPID PANEL 2020-12-15 Ninfa Castillo K.HHortensia [facility] ([id number])(TOTAL 10:07:00 Medical Branch CHOLESTEROL, TRIGLYCERIDES, HDL) N-TERMINAL PRO-BNP 2020-12-15 Ninfa Castillo [facility] 10:07:00 Medical Branch MAGNESIUM 2020-12-[address] [facility] xas 08:05:00 Medical Branch TROPONIN I 2020-12-[address] [facility] xas 08:05:00 Medical Branch TROPONIN I 2020-12-[address] [facility] xa 02:17:00 Medical Branch COVID-19 (ID NOW RAPID 2020-12-15 Antonia Cedeno [facility] TESTING) 00:58:00 Medical Branch LAB ONLY COVID 2020-12-[address] [facility] xa INTERPRETATION 00:58:00 [facility] XR CHEST 1 VW 2020-12-[address] [facility] xa 00:10:32 [facility] LIPASE 2020-12-14 Janeth Goodson [facility] 23:30:00 [facility] TROPONIN I 2020-12-14 Janeth Goodson [facility] 23:30:00 [facility] COMP. METABOLIC PANEL 2020-12-14 Janeth Goodson [facility] ([id number]) 23:30:00 [facility] CBC WITH DIFF 2020-12-14 Janeth Goodson [facility] 23:30:00 [facility] GLYCOSYLATED HEMOGLOBIN 2020-12-14 Ninfa Castillo [facility] (A1C) 23:30:00 [facility] PROTHROMBIN TIME / INR 2020-12-14 Janeth Goodson [facility] 23:30:00 [facility] ACTIVATED PARTIAL 2020-12-14 Janeth Goodson [facility] THRMPLAS AMARILIS 23:30:00 [facility] HB ECG ROUTINE & RHYTHM 2020-12-14 Janeth Goodson [facility] STRIP 22:59:19 Medical Branch INSURANCE CORRESPONDENCE 2020-11-16 Doctor Unassigned, [facility] 05:01:00 Name [facility] FL UPPER GI SMALL BOWEL 2020-10-28 Requisition, Paper [facility] SERIES 16:58:44 [facility] POCT URINALYSIS AUTO 2020-10-12 Perla Flower [facility] 19:31:00 Medical Branch CONSENT/REFUSAL FOR 2020-10-06 Doctor Unassigned, No [facility] DIAGNOSIS AND TREATMENT 15:43:[address] ABDOMEN PELVIS WO 2020-09-28 [facility] CONTR[facility] 23:49:27 Medical Branch LIPASE 2020-09-28 Dariobobby [facility] 23:32:00 Medical Branch COMP. METABOLIC PANEL 2020-09-28 [facility] ([id number]) 23:32:00 Medical Branch CBC WITH DIFF 2020-09-28 Dariobobby [facility] 23:32:00 Medical Branch POCT GLUCOSE (AUTOMATED) 2020-09-26 [facility] 21:40:00 [facility] XR CHEST 1 VW 2020-09-26 Rebecca [facility] Te [place] 16:48:13 Medical Branch POCT GLUCOSE (AUTOMATED) 2020-09-26 Rebecca [facility] 16:32:00 Medical Branch POCT GLUCOSE (AUTOMATED) 2020-09-26 Rebecca [facility] 12:38:00 Medical Branch POCT GLUCOSE (AUTOMATED) 2020-09-26 [facility] 08:59:00 [facility] COMP. METABOLIC PANEL 2020-09-26 Benji, [facility] ([id number]) 08:18:00 Medical Branch CBC WITH DIFF 2020-09-[address] [facility] Te [place] 08:18:00 [facility] N-TERMINAL PRO-BNP 2020-09-26 Benji [facility] 08:18:00 Medical Branch POCT GLUCOSE (AUTOMATED) 2020-09-26 Rebecca [facility] 08:15:00 Medical Branch POCT GLUCOSE (AUTOMATED) 2020-09-[address] [facility] 21:54:00 Medical Branch POCT GLUCOSE (AUTOMATED) 2020-09-25 Rebecca [facility] 16:52:00 Medical Branch POCT GLUCOSE (AUTOMATED) 2020-09-[address] [facility] 12:49:00 Medical Branch MAGNESIUM 2020-09-25 Benji [facility] xa 10:39:00 Medical Branch COMP. METABOLIC PANEL 2020-09-25 Benji [facility] ([id number]) 10:39:00 Medical Branch CBC WITH DIFF 2020-09-25 Benji [facility] xa 10:39:00 [facility] N-TERMINAL PRO-BNP 2020-09-25 Benji [facility] 10:39:00 [facility] POCT GLUCOSE (AUTOMATED) 2020-09-24 [facility] 21:19:00 [facility] POCT GLUCOSE (AUTOMATED) 2020-09-24 [facility] 17:02:00 [facility] POCT GLUCOSE (AUTOMATED) 2020-09-24 [facility] 12:47:00 [facility] FECES CULTURE 2020-09-24 Benji [facility] 11:46:00 [facility] OCCULT (GUAIAC) BLOOD 2020-09-24 Benji [facility] 11:46:00 [facility] FECAL LEUKOCYTES 2020-09-24 Benji [facility] exas 11:46:00 [facility] FECAL PATHOGENS BY PCR 2020-09-24 Benji [facility] 11:46:00 [facility] TROPONIN I 2020-09-24 Benji [facility] x[facility] 10:57:00 Medical Branch COMP. METABOLIC PANEL 2020-09-24 Benji [facility] ([id number]) 10:57:00 Medical Branch CBC WITH DIFF 2020-09-24 Benji [facility] xa 10:57:00 [facility] N-TERMINAL PRO-BNP 2020-09-24 Benji [facility] 10:57:00 [facility] CLOSTRIDIUM DIFFICILE 2020-09-24 Benji [facility] TOXIN 07:37:00 [facility] VITAMIN B12, LEVEL 2020-09-24 Benji [facility] 03:16:00 [facility] TROPONIN I 2020-09-24 Benji [facility] 03:16:00 Medical Branch IRON PANEL 2020-09-24 Benji [facility] x[place] 03:16:00 Medical Branch SEDIMENTATION RATE 2020-09-24 Benji [facility] 03:16:00 Medical Branch GLYCOSYLATED HEMOGLOBIN 2020-09-24 Benji [facility] (A1C) 03:16:00 [facility] VITAMIN D, 25-OH 2020-09-24 Benji [facility] exas 03:16:00 [facility] PROCALCITONIN 2020-09-24 Benji [facility] 03:16:00 Medical Branch POCT GLUCOSE (AUTOMATED) 2020-09-24 Blake Fernandez [facility] 01:11:00 Medical Branch CRITICAL CARE 2020-09-23 Juan José [facility] xa 23:17:[address] ABDOMEN PELVIS W 2020-09-23 Juan José [facility] [place] CONTRAST 21:46:[address] THORAX W CONTRAST 2020-09-23 Juan José [facility] 21:46:43 [facility] URINALYSIS 2020-09-23 Juan José [facility] xas 20:22:00 [facility] URINE CULTURE 2020-09-23 Juan José [facility] xas 20:22:00 Medical Branch HB ECG ROUTINE & RHYTHM 2020-09-23 Juan José Siva [facility] STRIP 19:38:23 Medical Branch HB ABO GROUPING 2020-09-23 Juan José [facility] xas 19:26:00 Medical Branch PHOSPHORUS 2020-09-23 Bejni [facility] xas 19:24:00 Medical Branch CREATINE KINASE 2020-09-23 Benji [facility] x[place] 19:24:00 Medical Branch URIC ACID 2020-09-23 Benji [facility] x[facility] 19:24:00 Medical Branch LIPASE 2020-09-23 Juan José [facility] xas 19:24:00 Medical Branch MAGNESIUM 2020-09-23 Benji [facility] xas 19:24:00 Medical Branch FERRITIN SERUM 2020-09-23 Benji [facility] xas 19:24:00 Medical Branch TROPONIN I 2020-09-23 Juan José [facility] 19:24:00 [facility] THYROID STIMULATING 2020-09-23 Benji [facility] HORMONE 19:24:00 [facility] HEPATIC FUNCTION PANEL 2020-09-23 [facility] ([id number]) (ALB,T.PRO,BILI 19:24:00 [facility] T,BU/BC,ALT,AST,ALK PHOS) BASIC METABOLIC PANEL 2020-09-23 [facility] (NA, K, CL, CO2, 19:24:00 [facility] GLUCOSE, BUN, CREATININE, CA) LIPID PANEL 2020-09-23 [facility] ([id number])(TOTAL 19:24:00 [facility] CHOLESTEROL, TRIGLYCERIDES, HDL) CBC WITH DIFF 2020-09-23 [facility] 19:24:00 [facility] PROTHROMBIN TIME / INR 2020-09-23 [facility] 19:24:00 [facility] ACTIVATED PARTIAL 2020-09-23 [facility] 19:24:00 [facility] N-TERMINAL PRO-BNP 2020-09-23 [facility] 19:24:00 [facility] COVID-19 (ID NOW RAPID 2020-09-23 [facility] 19:24:00 [facility] XR CHEST 1 VW 2020-09-23 [facility] 19:09:04 [facility] EMERGENCY DEPARTMENT 2020-09-23 Doctor Unassigned, No [facility] DOCUMENTS 05:01:00 Name Medical Branch POCT GLUCOSE (AUTOMATED) 2020-09-07 Jose Hill [facility] 17:29:00 Medical Branch POCT GLUCOSE (AUTOMATED) 2020-09-07 Jose Hill [facility] 13:33:00 Medical Branch POCT GLUCOSE (AUTOMATED) 2020-09-07 Jose Hill [facility] 01:50:00 [facility] POCT GLUCOSE (AUTOMATED) 2020-09-06 Jose Hill [facility] 14:02:00 Medical Branch POCT GLUCOSE (AUTOMATED) 2020-09-06 [facility] 02:45:00 [facility] POCT GLUCOSE (AUTOMATED) 2020-09-05 [facility] 14:21:00 [facility] CBC WITH DIFF 2020-09-05 [facility] 10:11[facility]00 [facility] POCT GLUCOSE (AUTOMATED) 2020-09-05 [facility] 01:12:00 [facility] POCT GLUCOSE (AUTOMATED) 2020-09-04 [facility] 21:19:00 [facility] POCT GLUCOSE (AUTOMATED) 2020[facility] 15:40[facility]00 [facility] LIPASE 2020-09-04 [facility] 15:19:00 [facility] POCT GLUCOSE (AUTOMATED) 2020-09-04 [facility] 14:15:00 [facility] POCT GLUCOSE (AUTOMATED) 2020-09-03 [facility]rlanger [facility] 23:41:00 [facility] POCT GLUCOSE (AUTOMATED) 2020-09-03 [facility] 15:22:00 [facility] URINE CULTURE 2020-09-03 [facility] 15:03:00 [facility] POCT GLUCOSE (AUTOMATED) 2020-09-03 [facility] 08:15:00 [facility] POCT GLUCOSE (AUTOMATED) 2020-09-03 [facility] 07:39:00 [facility] BLOOD CULTURE SCREEN 2020-09-03 [facility] 01:31:00 [facility] XR CHEST 1 VW 2020-09-02 [facility] 23:33:33 [facility] COVID-19 (ID NOW RAPID 2020-09-02 [facility] 23:15:00 [facility] LAB ONLY COVID 2020-09-02 [facility]PRET[facility] 23:15:00 [facility] BLOOD CULTURE SCREEN 2020-09-02 [facility] 23:12:00 [facility] LIPASE 2020-09-02 [facility] 23:12:00 [facility] HEPATIC FUNCTION PANEL 2020-09-02 [facility] ([id number]) (ALB,T.PRO,BILI 23:12:00 Medical Branch T,BU/BC,ALT,AST,ALK PHOS) BASIC METABOLIC PANEL 2020-09-02 [facility] (NA, K, CL, CO2, 23:12:00 [facility] GLUCOSE, BUN, CREATININE, CA) N-TERMINAL PRO-BNP 2020-09-02 [facility] 23:12:00 [facility] LACTIC ACID WHOLE BLOOD 2020-09-02 [facility] 23:12:00 [facility] TROPONIN I 2020-09-02 [facility] 22:20:00 [facility] COMP. METABOLIC PANEL 2020-09-02 [facility] ([id number][facility] 22:20:00 [facility] CBC WITH DIFF 2020-09-02 [facility] 22:20:00 [facility] PROTHROMBIN TIME / INR 2020-09-02 [facility] 22:20:00 [facility] [id number] 2020-08-11 ALDNE [facility] 00:00:00 [facility] [id number] 2020-08-11 ALDMO [facility] 00:00:00 [facility] [id number] 2020-08-11 ALDMO [facility] 00:00:00 [facility] [id number] 2020-08-11 ALDNE [facility] 00:00:00 [facility] ACTIVATED PARTIAL 2020-08-06 Cody Braxton [facility] THRMPLAS AMARILIS 18:59:00 [facility] POCT GLUCOSE (AUTOMATED) 2020-08-06 Johnie Skinner [facility] 14:26:00 Medical Branch BASIC METABOLIC PANEL 2020-08-06 Heather Newberry [facility] (NA, K, CL, CO2, 10:17:00 [facility] GLUCOSE, BUN, CREATININE, CA) CBC WITH DIFF 2020-08-06 Cody Braxton [facility] 10:17:00 Medical Branch ACTIVATED PARTIAL 2020-08-06 Ross Irais, Jose Antonio [facility] THRLAS AMARILIS 02:56:00 Medical Branch POCT GLUCOSE (AUTOMATED) 2020-08-06 Johnie Skinner [facility] 02:19:00 Medical Branch POCT GLUCOSE (AUTOMATED) 2020-08-05 Johnie Skinner [facility] 23:24:00 Medical Branch ACTIVATED PARTIAL 2020-08-05 Ross Irais, [facility] THRLAS AM[facility] 18:23:00 Medical Branch MAGNESIUM 2020-08-05 [facility] 05:01:00 [facility] BASIC METABOLIC PANEL 2020-08-05 [facility] (NA, K, CL, CO2, 05:01:00 [facility] GLUCOSE, BUN, CREATININE, CA) CBC WITH DIFF 2020-08-05 Ross Lara, [facility] 05:01:00 Medical Branch ACTIVATED PARTIAL 2020-08-05 Ross Irais, [facility] THRMERCY EMERGENCY DEPARTMENT AMARILIS 05:00:00 [facility] POCT GLUCOSE (AUTOMATED) 2020-08-05 Johnie Skinner [facility] 01:56:00 Medical Branch ACTIVATED PARTIAL 2020-08-04 Ross Irais, [facility] THRLAS [place] 16:50:00 [facility] POCT GLUCOSE (AUTOMATED) 2020-08-04 Johnie Skinner [facility] 13:57:00 Medical Branch BASIC METABOLIC PANEL 2020-08-04 Kathryn [facility] (NA, K, CL, CO2, 09:21:00 [facility] GLUCOSE, BUN, CREATININE, CA) CBC WITH DIFF 2020-08-04 Ross Irais [facility] 09:21:00 Medical Branch POCT GLUCOSE (AUTOMATED) 2020-08-04 Johnie Skinner [facility] 03:54:00 Medical Branch ACTIVATED PARTIAL 2020-08-04 Ross Irais, [facility] THRLAS AM[place] 01:28:00 [facility] POCT GLUCOSE (AUTOMATED) 2020-08-03 Johnie Skinner [facility] 22:16:00 Medical Branch POCT GLUCOSE (AUTOMATED) 2020-08-03 SusanneJohnie [facility] 17:57:00 Medical Branch HB ABO GROUPING 2020-08-03 Marlin [facility] xas 13:26:00 Medical Branch BELOW THE KNEE 2020-08-03 Tato Shearer [facility] AMPUTATION 12:42:00 Medical Branch BASIC METABOLIC PANEL 2020-08-03 [facility] (NA, K, CL, CO2, 07:30:00 [facility] GLUCOSE, BUN, CREATININE, CA) CBC WITH DIFF 2020-08-03 Cody Braxton [facility] 07:30:00 [facility] ACTIVATED PARTIAL 2020-08-03 Cody Braxton [facility] THRLAS AMARILIS 07:29:00 Medical Branch POCT GLUCOSE (AUTOMATED) 2020-08-03 [facility] 02:22:00 Medical Branch POCT GLUCOSE (AUTOMATED) 2020-08-02 Tejas [facility] 23:05:00 Medical Branch COVID-19 (ID NOW RAPID 2020-08-02 [facility] TESTING) 20:40:00 [facility] POCT GLUCOSE (AUTOMATED) 2020-08-02 Te[facility] 18:31:00 Medical Branch ACTIVATED PARTIAL 2020-08-02 Cody Braxton [facility] THRLAS AMARILIS 18:26:00 [facility] POCT GLUCOSE (AUTOMATED) 2020-08-02 Tejas [facility] 13:48:00 Medical Branch ACTIVATED PARTIAL 2020-08-02 Cody Braxton [facility] THRMERCY EMERGENCY DEPARTMENT AMARILIS 10:54:00 [facility] BASIC METABOLIC PANEL 2020-08-02 [facility] (NA, K, CL, CO2, 10:53:00 [facility] GLUCOSE, BUN, CREATININE, CA) CBC WITH DIFF 2020-08-02 Cody Braxton [facility] 10:53:00 Medical Branch ACTIVATED PARTIAL 2020-08-02 Cody Braxton Jose Antonio [facility] THRMPLAS AMARILIS 05:57:00 Medical Branch POCT GLUCOSE (AUTOMATED) 2020-08-02 Drew Lazaro [facility] 01:44:00 Medical Branch ACTIVATED PARTIAL 2020-08-01 Cody Braxton Jose Antonio [facility] THRMPLAS AMARILIS 20:33:00 Medical Branch POCT GLUCOSE (AUTOMATED) 2020-08-01 [facility] 14:52:00 [facility] Branch BASIC METABOLIC PANEL 2020-08-01 [facility] (NA, K, CL, CO2, 10:25:00 [facility], BUN, CREATININE, CA) CBC WITH DIFF 2020-08-01 Cody Braxton [facility] 10:25:00 Medical Branch ACTIVATED PARTIAL 2020-08-01 Cody Braxton [facility] THRLAS AMARILIS 10:25:00 Medical Branch POCT GLUCOSE (AUTOMATED) 2020-08-01 [facility] 02:28:00 [facility] Branch POCT GLUCOSE (AUTOMATED) 2020-07-31 Tejas [facility] 23:14:00 Medical Branch ACTIVATED PARTIAL 2020-07-31 Cody Braxton [facility] THRMERCY EMERGENCY DEPARTMENT AMARILIS 23:06:00 [facility] POCT GLUCOSE (AUTOMATED) 2020-07-31 [facility] 19:02:00 [facility] POCT GLUCOSE (AUTOMATED) 2020-07-31 Tejas [facility] 14:11:00 Medical Branch CBC WITH DIFF 2020-07-31 Cody Braxton [facility] 12:27:00 Medical Branch PROTHROMBIN TIME / INR 2020-07-31 Cody Braxton [facility] 12:27:00 Medical Branch ACTIVATED PARTIAL 2020-07-31 Cody Braxton [facility] THRLAS AMARILIS 12:27:00 Medical Branch COMP. METABOLIC PANEL 2020-07-31 Cody Braxton [facility] ([id number]) 12:26:00 Medical Branch POCT GLUCOSE (AUTOMATED) 2020-07-31 [facility] 02:10:00 [facility] POCT GLUCOSE (AUTOMATED) 2020-07-30 Brendan [facility] 22:37:00 Medical Branch POCT GLUCOSE (AUTOMATED) 2020-07-30 [facility] 14:06:00 [facility] BASIC METABOLIC PANEL 2020-07-30 Brendan [facility] (NA, K, CL, CO2, 11:54:00 Medical Branch GLUCOSE, BUN, CREATININE, CA) CBC WITH DIFF 2020-07-30 [facility] xa 11:54:00 Medical Branch N-TERMINAL PRO-BNP 2020-07-30 Antonia Hough [facility] 11:54:00 Medical Branch POCT GLUCOSE (AUTOMATED) 2020-07-30 [facility] 01:59:00 Medical Branch POCT GLUCOSE (AUTOMATED) 2020-07-29 Brendan [facility] 22:40:00 Medical Branch POCT GLUCOSE (AUTOMATED) 2020-07-29 Brendan [facility] 16:58:00 Medical Branch POCT GLUCOSE (AUTOMATED) 2020-07-29 Brendan [facility] 13:34:00 Medical Branch BASIC METABOLIC PANEL 2020-07-29 [place] [facility] (NA, K, CL, CO2, 09:54:00 Medical Branch GLUCOSE, BUN, CREATININE, CA) CBC WITH DIFF 2020-07-29 [facility] xa 09:54:00 Medical Branch POCT GLUCOSE (AUTOMATED) 2020-07-29 [facility] 02:25:00 [facility] POCT GLUCOSE (AUTOMATED) 2020-07-28 Brendan [facility] 22:42:00 [facility] POCT GLUCOSE (AUTOMATED) 2020-07-28 Brendan [facility] 17:53:00 [facility] EVIE MULTI LEVEL - BY 2020-07-28 [facility] VASCULAR LAB 15:30:00 Medical Branch DUPLEX ARTERIAL LEG 2020-07-28 [facility] RIGHT - BY VASCULAR LAB 14:55:00 [facility] POCT GLUCOSE (AUTOMATED) 2020-07-28 [facility] 13:18:00 [facility] TROPONIN I 2020-07-28 [facility] xa 09:36:00 [facility] BASIC METABOLIC PANEL 2020-07-28 [facility] (NA, K, CL, CO2, 09:36:00 Medical Branch GLUCOSE, BUN, CREATININE, CA) CBC WITH DIFF 2020-07-28 Brendan [facility] xa 09:36:00 [facility] TROPONIN I 2020-07-28 [facility] xa 04:35:00 [facility] N-TERMINAL PRO-BNP 2020-07-28 [facility] 04:35:00 [facility] POCT GLUCOSE (AUTOMATED) 2020-07-28 [facility] 02:15:00 [facility] PROTHROMBIN TIME / INR 2020-07-27 [facility] 23:36:00 [facility] ACTIVATED PARTIAL 2020-07-27 Brendan [facility] THRMPLAS AMARILIS 23:36:00 [facility] POCT GLUCOSE (AUTOMATED) 2020-07-27 Brendan [facility] 22:54:00 [facility] POCT GLUCOSE (AUTOMATED) 2020-07-27 Brendan [facility] 20:52:00 [facility] XR CHEST 1 VW 2020-07-27 [facility] xa 18:46:24 [facility] POCT GLUCOSE (AUTOMATED) 2020-07-27 [facility] 18:31:00 [facility] LIPASE 2020-07-27 [facility] xas 18:24:00 Medical Branch MAGNESIUM 2020-07-27 [facility] xas 18:24:00 Medical Branch TROPONIN I 2020-07-27 [facility] xa 18:24:00 [facility] COMP. METABOLIC PANEL 2020-07-27 [facility] ([id number]) 18:24:00 Medical Branch CBC WITH DIFF 2020-07-27 [facility] [place] 18:24:00 Medical Branch PROTHROMBIN TIME / INR 2020-07-27 [facility] 18:24:00 Medical Branch ACTIVATED PARTIAL 2020-07-27 Minnie Cardona [facility] THRMPLAS AMARILIS 18:24:00 [facility] N-TERMINAL PRO-BNP 2020-07-27 [facility] 18:24:00 Medical Branch COVID-19 (ID NOW RAPID 2020-07-27 [facility] TESTING) 18:24:00 Medical Branch LAB ONLY COVID 2020-07-27 [facility] [place] INTERPRETATION 18:24:00 [facility] [place] HB ECG ROUTINE & RHYTHM 2020-07-27 [facility] STRIP 18:15:35 [facility] EMERGENCY DEPARTMENT 2020-07-27 Doctor Unassigned, No [facility] DOCUMENTS 06:01:00 Name [facility] HOSPITAL ADMISSION 2020-07-27 Doctor Unassigned, No [facility] 06:01:00 [facility] POCT GLUCOSE (AUTOMATED) 2020-07-20 [facility] 23:32:00 Medical [facility] POCT GLUCOSE (AUTOMATED) 2020-07-20 [facility] 19:31:00 [facility] IRON PANEL 2020-07-20 [facility] 19:19:00 [facility] FIBRINOGEN 2020-07-20 [facility] 19:19:00 Medical [facility] CBC WITHOUT DIFF 2020-07-20 [facility] [place] 19:18:00 Medical Branch HB ABO GROUPING 2020-07-20 Isiah [facility] [place] 17:09:00 Medical Branch FERRITIN SERUM 2020-07-20 Isiah [facility] [place] 10:05:00 Medical Branch BASIC METABOLIC PANEL 2020-07-20 Dawit Cardona [facility] (NA, K, CL, CO2, 10:05:00 Medical Branch GLUCOSE, BUN, CREATININE, CA) CBC WITH DIFF 2020-07-20 Brendan, [facility] 10:05:00 Medical Branch POCT GLUCOSE (AUTOMATED) 2020-07-19 [facility] 23:58:00 Medical Branch CBC WITHOUT DIFF 2020-07-19 Dawit Cardona [facility] 20:46:00 Medical Branch POCT GLUCOSE (AUTOMATED) 2020-07-19 [facility] 20:11:00 Medical Branch POCT GLUCOSE (AUTOMATED) 2020-07-19 [facility] 15:54:00 Medical Branch MAGNESIUM 2020-07-19 [facility] 09:32:00 Medical Branch BASIC METABOLIC PANEL 2020-07-19 Isiah [facility] (NA, K, CL, CO2, 09:32:00 Medical Branch GLUCOSE, BUN, CREATININE, CA) CT FOOT RIGHT W CONTRAST 2020-07-18 [facility] 21:01:00 Medical Branch POCT GLUCOSE (AUTOMATED) 2020-07-18 [facility] 17:36:00 Medical Branch CBC WITH DIFF 2020-07-18 [facility] [place] 17:33:00 Medical Branch POCT GLUCOSE (AUTOMATED) 2020-07-18 [facility] 15:50:00 Medical Branch POCT GLUCOSE (AUTOMATED) 2020-07-18 [facility] 00:16:00 Medical Branch FL TIME OR 2020-07-17 [facility] [place] ([facility]-RE[facility]) 21:52:00 Medical Branch ARTERIOGRAM 2020-07-17 Ivana [facility] 16:32:00 Medical Branch POCT GLUCOSE (AUTOMATED) 2020-07-17 [facility] 16:25:00 Medical Branch BASIC METABOLIC PANEL 2020-07-17 Isiah [facility] (NA, K, CL, CO2, 10:32:00 Medical Branch GLUCOSE, BUN, CREATININE, CA) CBC WITH DIFF 2020-07-17 Isiah [facility] [place] 10:32:00 Medical Branch POCT GLUCOSE (AUTOMATED) 2020-07-17 [facility] 00:45:00 Medical Branch POCT GLUCOSE (AUTOMATED) 2020-07-17 [facility] 00:32:00 Medical Branch COVID-19 (ID NOW RAPID 2020-07-16 [facility] 21:28:00 Medical Branch LAB ONLY COVID 2020-07-16 [facility] INTERPRETATION 21:28:00 Medical Branch HB ABO GROUPING 2020-07-16 [facility] 21:22:00 Medical Branch POCT GLUCOSE (AUTOMATED) 2020-07-16 [facility] 21:13:00 Medical Branch POCT GLUCOSE (AUTOMATED) 2020-07-16 [facility] 15:38:00 [facility] BASIC METABOLIC PANEL 2020-07-16 [facility] (NA, K, CL, CO2, 10:48:00 Medical Branch GLUCOSE, BUN, CREATININE, CA) CBC WITH DIFF 2020-07-16 Isiah [facility] 10:48:00 Medical Branch POCT GLUCOSE (AUTOMATED) 2020-07-15 [facility] 23:20:00 Medical Branch POCT GLUCOSE (AUTOMATED) 2020-07-15 [facility] 18:56:00 Medical Branch MAGNESIUM 2020-07-15 [facility] 10:32:00 Medical Branch C-REACTIVE PROTEIN 2020-07-15 Drew [facility] 10:32:00 [facility] BASIC METABOLIC PANEL 2020-07-15 [facility] (NA, K, CL, CO2, 10:32:00 Medical Branch GLUCOSE, BUN, CREATININE, CA) SEDIMENTATION RATE 2020-07-15 Drew [facility] 10:32:00 Medical Branch POCT GLUCOSE (AUTOMATED) 2020-07-[address] [facility] 22:45:00 Medical Branch VANCOMYCIN TROUGH 2020-07-14 Minnie Cardona [facility] 21:34:00 Medical Branch POCT GLUCOSE (AUTOMATED) 2020-07-[address] [facility] 18:01:00 Medical Branch POCT GLUCOSE (AUTOMATED) 2020-07-14 [facility] 13:40:00 Medical Branch BASIC METABOLIC PANEL 2020-07-14 [facility] (NA, K, CL, CO2, 10:42:00 Medical Branch GLUCOSE, BUN, CREATININE, CA) CBC WITH DIFF 2020-07-14 [facility] [place] 10:42:00 Medical Branch PROTHROMBIN TIME / INR 2020-07-14 Antonia Hough [facility] 10:42:00 Medical Branch POCT GLUCOSE (AUTOMATED) 2020-07-13 [facility] 22:31:00 Medical Branch EVIE MULTI LEVEL BY 2020-07-13 Minnie Cardona [facility] VASCULAR LAB 20:32:13 Medical Branch POCT GLUCOSE (AUTOMATED) 2020-07-[address] [facility] 17:36:00 Medical Branch UNILATERAL DUPLEX SCAN 2020-07-13 Chad Mancera [facility] OF ARTERY BY VASCULAR 16:17:21 Medical anch LAB POCT GLUCOSE (AUTOMATED) 2020-07-13 Elvis [facility] 13:53:00 Medical Branch BASIC METABOLIC PANEL 2020-07-13 [facility] (NA, K, CL, CO2, 09:35:00 Medical Branch GLUCOSE, BUN, CREATININE, CA) CBC WITH DIFF 2020-07-13 [facility] [place] 09:35:00 Medical Branch POCT GLUCOSE (AUTOMATED) 2020-07-[address] [facility] 01:42:00 Medical Branch POCT GLUCOSE (AUTOMATED) 2020-07-12 [facility] 21:52:00 [facility] VANCOMYCIN TROUGH 2020-07-12 [facility] 20:20:00 Medical Branch POCT GLUCOSE (AUTOMATED) 2020-07-12 Elvis [facility] 17:18:00 Medical Branch POCT GLUCOSE (AUTOMATED) 2020-07-12 Elvis [facility] 13:31:00 Medical Branch BASIC METABOLIC PANEL 2020-07-12 [facility] (NA, K, CL, CO2, 09:48:00 Medical Branch GLUCOSE, BUN, CREATININE, CA) CBC WITH DIFF 2020-07-12 [facility] [place] 09:48:00 Medical Branch GLYCOSYLATED HEMOGLOBIN 2020-07-12 Antonia Hough [facility] (A1C) 09:48:00 Medical Branch POCT GLUCOSE (AUTOMATED) 2020-07-[address] [facility] 02:12:[address] HEAD WO CONTRAST 2020-07-11 [facility] 23:52:10 Medical Branch POCT GLUCOSE (AUTOMATED) 2020-07-11 Elvis [facility] 22:16:00 Medical Branch POCT GLUCOSE (AUTOMATED) 2020-07-[address] [facility] 17:29:00 Medical Branch POCT GLUCOSE (AUTOMATED) 2020-07-[address] [facility] 16:39:00 Medical Branch POCT GLUCOSE (AUTOMATED) 2020-07-11 Janeth Goodson [facility] 13:36:00 Medical Branch BLOOD CULTURE SCREEN 2020-07-11 [facility] 12:35:00 Medical Branch BLOOD CULTURE SCREEN 2020-07-11 [facility] 12:34:00 Medical Branch XR FOOT <3 VW RIGHT 2020-07-11 Janeth Goodson [facility] 02:03:59 [facility] HEPATIC FUNCTION PANEL 2020-07-11 Janeth Goodson [facility] ([id number]) (ALB,T.PRO,BILI 01:54:00 Medical Branch T,BU/BC,ALT,AST,ALK PHOS) BASIC METABOLIC PANEL 2020-07-11 Janeth Goodson [facility] (NA, K, CL, CO2, 01:54:00 Medical Branch GLUCOSE, BUN, CREATININE, CA) SEDIMENTATION RATE 2020-07-11 Janeth Goodson [facility] 01:54:00 Medical Branch CBC WITH DIFF 2020-07-11 Elvis Janeth [facility] 01:54:00 Medical Branch PROTHROMBIN TIME / INR 2020-07-11 Elvis Janeth [facility] 01:54:00 Medical Branch COVID-19 (ID NOW RAPID 2020-07-11 Janeth Goodson [facility] TESTING) 01:54:00 Medical Branch LAB ONLY COVID 2020-07-11 Janeth Goodson [facility] INTERPRETATION 01:54:00 Medical Branch EMERGENCY DEPARTMENT 2020-07-10 Doctor Unassigned, No [facility] DOCUMENTS 06:01:00 Name [facility] [place] H[facility]PITAL ADMISSION 2020-07-10 Doctor Unassigned, No [facility] 06:01:00 Name [facility] POCT GLUCOSE (AUTOMATED) 2020-06-02 [facility] 17:46:00 Medical Branch POCT GLUCOSE (AUTOMATED) 2020-06-02 Humaira [facility] 13:39:00 [facility] COMP. METABOLIC PANEL 2020-06-02 Humaira Timur [facility] ([id number]) 10:36:00 Medical Branch CBC WITH DIFF 2020-06-02 Edgardo [facility] [place] 10:36:00 Medical Branch PROTHROMBIN TIME / INR 2020-06-02 Timur [facility]do [facility] 10:36:00 Medical Branch POCT GLUCOSE (AUTOMATED) 2020-06-02 Timur Gerardo [facility] 10:34:00 Medical Branch POCT GLUCOSE (AUTOMATED) 2020-06-02 Timur Gerardo [facility] 03:18:00 Medical Branch POCT GLUCOSE (AUTOMATED) 2020-06-02 Timur Gerardo [facility] 02:14:00 Medical Branch POCT GLUCOSE (AUTOMATED) 2020-06-01 Morris [facility] ity [facility] 23:10:00 Medical Branch POCT GLUCOSE (AUTOMATED) 2020-06-01 Timur Gerardo [facility] 17:35:00 Medical Branch POCT GLUCOSE (AUTOMATED) 2020-06-01 Humaira [facility] 13:43:00 Medical Branch POCT GLUCOSE (AUTOMATED) 2020-06-01 Timur Gerardo [facility] 02:28:00 Medical Branch POCT GLUCOSE (AUTOMATED) 2020-05-31 [facility] 23:08:00 [facility] [place] POCT GLUCOSE (AUTOMATED) 2020-05-31 [facility] 17:52:00 Medical Branch POCT GLUCOSE (AUTOMATED) 2020-05-31 [facility] 13:34:00 Medical Branch BASIC METABOLIC PANEL 2020-05-31 [facility] (NA, K, CL, CO2, 10:36:00 Medical Branch GLUCOSE, BUN, CREATININE, CA) CBC WITH DIFF 2020-05-31 [facility] 10:36:00 [facility] [place] PROTHROMBIN TIME / INR 2020-05-31 [facility] 10:36:00 [facility] [place] POCT GLUCOSE (AUTOMATED) 2020-05-31 [facility] 01:51:00 Medical Branch POCT GLUCOSE (AUTOMATED) 2020-05-30 [facility] 22:45:00 [facility] [place] POCT GLUCOSE (AUTOMATED) 2020-05-30 [facility] 18:01:00 Medical Branch POCT GLUCOSE (AUTOMATED) 2020-05-30 [facility] 14:28:00 [facility] [place] BASIC METABOLIC PANEL 2020-05-30 [facility] (NA, K, CL, CO2, 09:29:00 Medical Branch GLUCOSE, BUN, CREATININE, CA) CBC WITH DIFF 2020-05-30 [facility] [place] 09:29:00 [facility] [place] POCT GLUCOSE (AUTOMATED) 2020-05-30 [facility] 01:54:00 Medical Branch PROTHROMBIN TIME / INR 2020-05-30 Antonia Hough [facility] 01:52:00 Medical Branch LACTIC ACID WHOLE BLOOD 2020-05-30 [facility] 01:51:00 Medical Branch POCT GLUCOSE (AUTOMATED) 2020-05-29 [facility] 22:47:00 Medical Branch COVID-19 (ID NOW RAPID 2020-05-29 [facility] TESTING) 19:47:00 Medical Branch LAB ONLY COVID 2020-05-29 [facility] [place] INTERPRETATION 19:47:00 Medical Branch XR FEMUR 2 VW LEFT 2020-05-29 [facility] 16:28:10 Medical Branch XR FOOT <3 VW RIGHT 2020-05-29 Singer [facility] [place] 16:28:10 [facility] BLOOD CULTURE SCREEN 2020-05-29 Galvan, [facility] 15:52:00 [facility] COMP. METABOLIC PANEL 2020-05-29 [facility] ([id number]) 15:52:00 [facility] CBC WITH DIFF 2020-05-29 [facility] [place] 15:52:00 [facility] LACTIC ACID WHOLE BLOOD 2020-05-29 Galvan [facility] 15:50:00 Medical Branch EKG-12 LEAD 2020-05-29 [facility] [place] 15:34:13 Medical Branch EMERGENCY DEPARTMENT 2020-05-29 Doctor Unassigned, No [facility] DOCUMENTS 06:01:00 Name Medical Branch PHYSICIAN ORDERS 2020-04-23 Doctor Unassigned, No [facility] 06:01:00 Name [facility] [place] POCT GLUCOSE (AUTOMATED) 2020-03-26 [facility] 22:37:00 Medical Branch POCT GLUCOSE (AUTOMATED) 2020-03-26 [facility] 18:58:00 Medical Branch POCT GLUCOSE (AUTOMATED) 2020-03-26 Tato Shearer [facility] [place] 14:07:00 Medical Branch POCT GLUCOSE (AUTOMATED) 2020-03-26 Tato Shearer [facility] [place] 09:52:00 Medical Branch POCT GLUCOSE (AUTOMATED) 2020-03-26 Tato Shearer [facility] [place] 06:05:00 Medical Branch POCT GLUCOSE (AUTOMATED) 2020-03-26 Tato Shearer [facility] [place] 05:52:00 Medical Branch POCT GLUCOSE (AUTOMATED) 2020-03-26 Tato Shearer Un iversity [facility] 02:28:00 Medical Branch POCT GLUCOSE (AUTOMATED) 2020-03-25 [facility]ato Shearer [facility] [place] 23:22:00 Medical [facility] POCT GLUCOSE (AUTOMATED) 2020-03-25 Tato Shearer [facility] [place] 21:08:00 Medical [facility] POCT GLUCOSE (AUTOMATED) 2020-03-25 Tato Shearer [facility] [place] 19:11:00 Medical [facility] POCT GLUCOSE (AUTOMATED) 2020-03-25 Tato Shearer [facility] [place] 17:27:00 Medical [facility] POCT GLUCOSE (AUTOMATED) 2020-03-25 Tato Shearer [facility] [place] 13:18:00 Medical [facility] POCT GLUCOSE (AUTOMATED) 2020-03-25 Tato Shearer [facility] [place] 10:08:00 Medical [facility] POCT GLUCOSE (AUTOMATED) 2020-03-25 Tato Shearer [facility] [place] 06:36:00 Medical [facility] POCT GLUCOSE (AUTOMATED) 2020-03-25 Tato Shearer [facility] [place] 02:00:00 Medical [facility] POCT GLUCOSE (AUTOMATED) 2020-03-24 Tato Shearer [facility] [place] 22:43:00 Medical [facility] POCT GLUCOSE (AUTOMATED) 2020-03-24 Tato Shearer [facility] [place] 17:59:00 Medical [facility] POCT GLUCOSE (AUTOMATED) 2020-03-24 Tato Shearer [facility] [place] 13:26:00 Medical [facility] POCT GLUCOSE (AUTOMATED) 2020-03-24 Tato Shearer [facility] [place] 10:31:00 Medical [facility] CBC WITH DIFF 2020-03-24 [facility] [place] 09:58:00 Medical [facility] POCT GLUCOSE (AUTOMATED) 2020-03-24 Tato Shearer [facility] [place] 05:59:00 Medical [facility] POCT GLUCOSE (AUTOMATED) 2020-03-24 Tato Shearer [facility] [place] 01:34:00 Medical [facility] POCT GLUCOSE (AUTOMATED) 2020-03-23 Tato Shearer [facility] [place] 23:32:00 Medical [facility] POCT GLUCOSE (AUTOMATED) 2020-03-23 Tato Shearer [facility] [place] 21:52:00 Medical [facility] POCT GLUCOSE (AUTOMATED) 2020-03-23 Tato Shearer [facility] [place] 17:58:00 Medical [facility] POCT GLUCOSE (AUTOMATED) 2020-03-23 Tato Shearer [facility] [place] 13:55:00 Medical Branch PHOSPHORUS 2020-03-23 Dongur, [facility] [place] 11:28:00 Medical [facility] MAGNESIUM 2020-03-23 Dongur, [facility] [place] 11:28:00 Medical Branch BASIC METABOLIC PANEL 2020-03-23 [facility] (NA, K, CL, CO2, 11:28:00 Medical Branch GLUCOSE, BUN, CREATININE, CA) CBC WITH DIFF 2020-03-23 Estefania, [facility] [place] 11:28:00 Medical [facility] POCT GLUCOSE (AUTOMATED) 2020-03-23 Tato Shearer [facility] [place] 09:25:00 Medical [facility] POCT GLUCOSE (AUTOMATED) 2020-03-23 Tato Shearer [facility] [place] 05:21:00 Medical [facility] POCT GLUCOSE (AUTOMATED) 2020-03-23 Tato Shearer [facility] [place] 01:17:00 Medical [facility] POCT GLUCOSE (AUTOMATED) 2020-03-22 Tato Shearer [facility] [place] 23:04:00 Medical [facility] POCT GLUCOSE (AUTOMATED) 2020-03-22 Tato Shearer [facility] [place] 18:59:00 Medical Branch POCT GLUCOSE (AUTOMATED) 2020-03-22 Tato Shearer [facility] [place] 15:35:00 Medical [facility] POCT GLUCOSE (AUTOMATED) 2020-03-22 Tato Shearer [facility] [place] 13:30:00 Medical [facility] PHOSPHORUS 2020-03-22 Estefania, [facility] [place] 11:09:00 Medical [facility] MAGNESIUM 2020-03-22 Toñitour, [facility] [place] 11:09:00 Medical [facility] BASIC METABOLIC PANEL 2020-03-22 Toñito, [facility] (NA, K, CL, CO2, 11:09:00 Medical Branch GLUCOSE, BUN, CREATININE, CA) CBC WITH DIFF 2020-03-22 Toñito, [facility] [place] 09:42:00 Medical [facility] POCT GLUCOSE (AUTOMATED) 2020-03-22 Tato Sheaerr [facility] [place] 09:22:00 Medical Branch POCT GLUCOSE (AUTOMATED) 2020-03-22 Tato Shearer [facility] [place] 04:21:00 Medical Branch POCT GLUCOSE (AUTOMATED) 2020-03-22 Tato Shearer [facility] [place] 00:24:00 Medical Branch POCT GLUCOSE (AUTOMATED) 2020-03-21 Tato Shearer [facility] [place] 23:02:00 Medical Branch POCT GLUCOSE (AUTOMATED) 2020-03-21 Tato Shearer [facility] [place] 18:42:00 Medical Branch POCT GLUCOSE (AUTOMATED) 2020-03-21 Tato Shearer [facility] [place] 13:38:00 Medical Branch VANCOMYCIN TROUGH 2020-03-21 Phan [facility] 09:17:00 Medical Branch PHOSPHORUS 2020-03-21 [facility] 08:35:00 Medical Branch MAGNESIUM 2020-03-21 [facility] 08:35:00 Medical Branch BASIC METABOLIC PANEL 2020-03-21 [facility] (NA, K, CL, CO2, 08:35:00 Medical Branch GLUCOSE, BUN, CREATININE, CA) CBC WITH DIFF 2020-03-21 [facility] 08:35:00 Medical Branch POCT GLUCOSE (AUTOMATED) 2020-03-21 Tato Shearer [facility] [place] 08:30:00 Medical Branch POCT GLUCOSE (AUTOMATED) 2020-03-21 Tato Shearer [facility] [place] 05:19:00 Medical Branch POCT GLUCOSE (AUTOMATED) 2020-03-21 Tato Shearer [facility] [place] 00:49:00 Medical Branch CBC WITH DIFF 2020-03-20 [facility] 22:51:00 Medical Branch POCT GLUCOSE (AUTOMATED) 2020-03-20 Tato Shearer [facility] [place] 21:08:00 Medical [facility] POCT GLUCOSE (AUTOMATED) 2020-03-20 Tato Shearer [facility] [place] 16:12:00 Medical Branch POCT GLUCOSE (AUTOMATED) 2020-03-20 Tato Shearer [facility] [place] 12:20:00 Medical Branch PHOSPHORUS 2020-03-20 [facility] 08:44:00 Medical Branch MAGNESIUM 2020-03-20 [facility] 08:44:00 Medical Branch BASIC METABOLIC PANEL 2020-03-20 [facility] (NA, K, CL, CO2, 08:44:00 Medical Branch GLUCOSE, BUN, CREATININE, CA) CBC WITH DIFF 2020-03-20 [facility] 08:44:00 Medical Branch POCT GLUCOSE (AUTOMATED) 2020-03-20 Tato Shearer [facility] [place] 08:39:00 Medical Branch POCT GLUCOSE (AUTOMATED) 2020-03-20 Tato Shearer [facility] [place] 05:13:00 Medical Branch POCT GLUCOSE (AUTOMATED) 2020-03-20 Tato Shearer [facility] [place] 00:38:00 Medical [facility] POCT GLUCOSE (AUTOMATED) 2020-03-19 Tato Shearer [facility] [place] 21:53:00 Medical Branch BLOOD CULTURE SCREEN 2020-03-19 [facility] 18:40:00 Medical [facility] POCT GLUCOSE (AUTOMATED) 2020-03-19 Tato Shearer [facility] [place] 16:21:00 Medical Branch POCT GLUCOSE (AUTOMATED) 2020-03-19 Tato Shearer Un iversity [facility] 12:20:00 Medical Branch PHOSPHORUS 2020-03-19 [facility] 09:13:00 Medical Branch MAGNESIUM 2020-03-19 [facility] 09:13:00 Medical Branch BASIC METABOLIC PANEL 2020-03-19 [facility] (NA, K, CL, CO2, 09:13:00 Medical Branch GLUCOSE, BUN, CREATININE, CA) CBC WITH DIFF 2020-03-19 [facility] 09:13:00 Medical Branch POCT GLUCOSE (AUTOMATED) 2020-03-19 Tato Shearer [facility] [place] 09:03:00 Medical Branch POCT GLUCOSE (AUTOMATED) 2020-03-19 Tato Shearer [facility] [place] 04:35:00 Medical Branch POCT GLUCOSE (AUTOMATED) 2020-03-19 Ttao Shearer [facility] 02:09:00 Medical Branch POCT GLUCOSE (AUTOMATED) 2020-03-18 Tato Shearer [facility] 23:00:00 Medical Branch CBC WITHOUT DIFF 2020-03-18 [facility] 21:56:00 Medical Branch PHOSPHORUS 2020-03-18 [facility] 21:55:00 Medical Branch MAGNESIUM 2020-03-18 [facility] 21:55:00 Medical Branch BASIC METABOLIC PANEL 2020-03-18 [facility] (NA, K, CL, CO2, 21:55:00 Medical Branch GLUCOSE, BUN, CREATININE, CA) TRANSFUSE PACKED RBC 2020-03-18 Caio Najera [facility] 20:31:33 [facility] SURGICAL PATHOLOGY EXAM 2020-03-18 Tato Shearer [facility] 20:16:00 Medical Branch PREPARE PACKED RBC 2020-03-18 Caio Najera [facility] 19:52:03 Medical Branch NERVE BLOCK 2020-03-18 [facility] xa 18:54:54 Medical Branch BELOW THE KNEE 2020-03-18 Tato Shearer [facility] AMPUTATION 18:26:00 Medical Branch POCT GLUCOSE (AUTOMATED) 2020-03-18 [facility] 16:49:00 Medical Branch PHOSPHORUS 2020-03-18 [facility] 14:30:00 Medical Branch MAGNESIUM 2020-03-18 [facility] 14:30:00 Medical Branch BASIC METABOLIC PANEL 2020-03-18 [facility] (NA, K, CL, CO2, 14:30:00 Medical Branch GLUCOSE, BUN, CREATININE, CA) CBC WITH DIFF 2020-03-18 [facility] 14:30:00 Medical Branch POCT GLUCOSE (AUTOMATED) 2020-03-18 Gianluca [facility] 12:48:00 Medical Branch POCT GLUCOSE (AUTOMATED) 2020-03-18 Gianluca [facility] 08:46:00 Medical Branch POCT GLUCOSE (AUTOMATED) 2020-03-18 [facility] 04:55:00 [facility] HB ABO GROUPING 2020-03-18 Caio Njaera Phani [facility] 03:20:00 [facility] POCT GLUCOSE (AUTOMATED) 2020-03-18 [facility] 03:19:00 [facility] POCT GLUCOSE (AUTOMATED) 2020-03-18 [facility] 01:38:00 [facility] POCT GLUCOSE (AUTOMATED) 2020-03-17 [facility] 17:00:00 [facility] POCT GLUCOSE (AUTOMATED) 2020-03-17 [facility] 12:53:00 [facility] ACTIVATED PARTIAL 2020-03-17 Ko [place] [facility] 09:06:00 [facility] BASIC METABOLIC PANEL 2020-03-17 [facility] (NA, K, CL, CO2, 09:02:00 [facility] [place] GLUCOSE, BUN, CREATININE, CA) VANCOMYCIN TROUGH 2020-03-17 [facility] 09:02:00 [facility] CBC WITH DIFF 2020-03-17 [facility] xa 09:02:00 [facility] POCT GLUCOSE (AUTOMATED) 2020-03-17 [facility] 08:50:00 [facility] POCT GLUCOSE (AUTOMATED) 2020-03-17 [facility] 04:55:00 [facility] ACTIVATED PARTIAL 2020-03-17 [facility] 04:02:00 [facility] POCT GLUCOSE (AUTOMATED) 2020-03-17 [facility] 02:09:00 [facility] HB ABO GROUPING 2020-03-16 [facility] 23:00:00 [facility] POCT GLUCOSE (AUTOMATED) 2020-03-16 [facility] 21:50:00 [facility] BASIC METABOLIC PANEL 2020-03-16 Humaira [facility] (NA, K, CL, CO2, 21:26:00 [facility] GLUCOSE, BUN, CREATININE, CA) ACTIVATED PARTIAL 2020-03-16 Humaira Timur [employer] [place] THRMPLAS [place] 21:26:00 [facility] US RETROPERITONEAL 2020-03-16 Gianluca [facility] COMPLETE 17:06:34 [facility] POCT GLUCOSE (AUTOMATED) 2020-03-16 Gianluca [facility] 16:21:00 [facility] URINALYSIS 2020-03-16 [facility] 15:50:00 [facility] DUPLEX SCAN GRAFT LOWER 2020-03-16 Gianluca [facility] EXTREMITY-BILATERAL BY 14:33:15 Medical ranch VASCULAR LAB PHOSPHORUS 2020-03-16 Humaira [facility] xa 14:20:00 [facility] MAGNESIUM 2020-03-16 Edgardo [facility] 14:20:00 [facility] BASIC METABOLIC PANEL 2020-03-16 [facility] (NA, K, CL, CO2, 14:20:00 [facility] GLUCOSE, BUN, CREATININE, CA) PROTHROMBIN TIME / INR 2020-03-16 [facility] 14:20:00 [facility] ACTIVATED PARTIAL 2020-03-16 Edgardo [facility] THRMPLAS [place] 14:20:00 [facility] POCT GLUCOSE (AUTOMATED) 2020-03-16 Gianluca [facility] 12:53:00 [facility] EVIE MULTI LEVEL BY 2020-03-16 Gianluca [facility] VASCULAR LAB 12:37:21 [facility] EKG-12 LEAD 2020-03-16 Gianluca [facility] 10:37:51 [facility] WOUND/ASPIRATE OR 2020-03-16 Gianluca [facility] ABSCESS CULTURE 09:48:00 [facility] WOUND CULTURE 2020-03-16 Gianluca [facility] xa 09:48:00 [facility] XR CHEST 1 VW 2020-03-16 Gianluca [facility] 08:48:03 [facility] LACTIC ACID WHOLE BLOOD 2020-03-16 [facility] 08:24:[address] [facility] [address] FOOT LEFT WO CONTRAST 2020-03-16 Gianluca [facility] 08:02:27 [facility] COVID-19 (ID NOW RAPID 2020-03-16 [facility] TESTING) 07:33:00 [facility] LAB ONLY COVID 2020-03-16 [facility] x[facility] INTERPRETATION 07:33:00 [facility] BLOOD CULTURE SCREEN 2020-03-16 [facility] 05:57:00 Medical [facility] URIC ACID 2020-03-[address] [facility] xa 05:57:00 Medical [facility] FERRITIN SERUM 2020-03-16 Gianluca [facility] xas 05:57:00 [facility] IRON 2020-03-16 Gianluca, [facility] xa 05:57:00 Medical Branch TROPONIN I 2020-03-16 Gianluca, [facility] 05:57:00 [facility] THYROID STIMULATING 2020-03-16 Gianluca [facility] [place] HORMONE 05:57:00 [facility] COMP. METABOLIC PANEL 2020-03-16 [id number] 05:57:00 [facility] LIPID PANEL 2020-03-16 Gianluca [facility] ([id number])(TOTAL 05:57:00 Medical Branch CHOLESTEROL, TRIGLYCERIDES, HDL) SEDIMENTATION RATE 2020-03-16 Gianluca [facility] 05:57:00 [facility] CBC WITH DIFF 2020-03-16 [facility] 05:57:00 [facility] GLYCOSYLATED HEMOGLOBIN 2020-03-16 Gianluca [facility] (A1C) 05:57:00 [facility] N-TERMINAL PRO-BNP 2020-03-16 [place] [facility] 05:57:00 [facility] BLOOD CULTURE WORKUP 2020-03-16 [facility] 05:57:00 [facility] BLOOD CULTURE WORKUP 2020-03-16 Galvan, [facility] 05:57:00 [facility] GRAM POSITIVE BLOOD 2020-03-16 Galvan, [facility] [place] PATHOGENS DNA 05:57:00 [facility] PROBE-ANAEROBIC LOW-DENSITY LIPOPROTEIN, 2020-03-16 Gianluca [facility] DIRECT 05:57:00 [facility] LACTIC ACID WHOLE BLOOD 2020-03-16 [facility] 05:56:00 Medical [facility] XR FOOT <3 VW LEFT 2020-03-16 [facility] 05:28:38 [facility] CONSENT/REFUSAL FOR 2020-03-16 Doctor Unassigned, No [facility] DIAGNOSIS AND TREATMENT 04:40:16 Name [facility] HOSPITAL ADMISSION 2020-03-15 Doctor Unassigned, No [facility] 05:01:00 Name [facility] POCT GLUCOSE (AUTOMATED) 2020-02-05 Benji, [facility] 16:54:00 [facility] POCT GLUCOSE (AUTOMATED) 2020-02-05 Benji, [facility] 15:33:00 [facility] POCT GLUCOSE (AUTOMATED) 2020-02-05 [facility], [facility] 12:51:00 [facility] POCT GLUCOSE (AUTOMATED) 2020-02-05 [facility], [facility] 09:10:00 [facility] URIC ACID 2020-02-05 [facility], [facility] xas 08:19:00 [facility] TROPONIN I 2020-02-05 [facility], [facility] xa 08:19:00 [facility] BASIC METABOLIC PANEL 2020-02-05 [facility], [facility] (NA, K, CL, CO2, 08:19:00 [facility] GLUCOSE, BUN, CREATININE, CA) CBC WITH DIFF 2020-02-05 [facility], [facility] xas 08:19:00 [facility] N-TERMINAL PRO-BNP 2020-02-05 [facility], [facility] 08:19:00 [facility] URINE CULTURE 2020-02-04 [facility], [facility] xas 23:03:00 [facility] UREA NITROGEN, URINE 2020-02-04 [facility], [facility] RANDOM 23:03:00 [facility] SODIUM, URINE RANDOM 2020-02-04 [facility], [facility] 23:02:00 [facility] PROTEIN CREAT RATIO 2020-02-04 [facility], [facility] URINE RANDOM 23:02:00 [facility] POCT GLUCOSE (AUTOMATED) 2020-02-04 [facility], [facility] 21:36:00 [facility] ECHO ROUTINE W/DOPPLER 2020-02-04 [facility], [facility] COLOR 19:30:09 [facility] TROPONIN I 2020-02-04 Ebnji, [facility] xas 17:36:00 Medical Branch POCT GLUCOSE (AUTOMATED) 2020-02-04 [facility] 12:47:00 Medical Branch XR CHEST 1 VW 2020-02-04 [facility], [facility] 10:54:05 [facility] XR FOOT 3+ VW LEFT 2020-02-04 [facility], [facility] 10:54:05 [facility] ABORH CONFIRMATION 2020-02-04 [facility], [facility] 10:00:00 [facility] POCT GLUCOSE (AUTOMATED) 2020-02-04 [facility], [facility] 07:28:00 [facility] HB ABO GROUPING 2020-02-04 [facility], [facility] 06:47:00 [facility] LACTATE DEHYDROGENASE 2020-02-04 [facility], [facility] 06:44:00 [facility] Branch URIC ACID 2020-02-04 [facility], [facility] 06:44:00 [facility] VITAMIN B12, LEVEL 2020-02-04 [facility], [facility] 06:44:00 [facility] TROPONIN I 2020-02-04 [facility], [facility] 06:44:00 [facility] BASIC METABOLIC PANEL 2020-02-04 [facility], [facility] (NA, K, CL, CO2, 06:44:00 [facility] GLUCOSE, BUN, CREATININE, CA) LIPID PANEL 2020-02-04 [facility] ([id number])(TOTAL 06:44:00 Medical Branch CHOLESTEROL, TRIGLYCERIDES, HDL) IRON PANEL 2020-02-04 [facility], [facility] 06:44:00 [facility] CBC WITH DIFF 2020-02-04 [facility], [facility] 06:44:00 [facility] N-TERMINAL PRO-BNP 2020-02-04 [facility], [facility] 06:44:00 [facility] VITAMIN D, 25-OH 2020-02-04 [facility], [facility] exas 06:44:00 Medical Branch PROCALCITONIN 2020-02-04 [facility], [facility] 06:44:00 [facility] LACTIC ACID WHOLE BLOOD 2020-02-04 [facility], [facility] 06:32:00 Medical Branch COVID-19 (ID NOW RAPID 2020-02-04 [facility] TESTING) 01:18:00 Medical Branch EKG-12 LEAD 2020-02-04 [facility] 01:14:34 Medical Branch EKG-12 LEAD 2020-02-04 [facility] 01:09:[address] ANGIOGRAM CHEST 2020-02-03 [facility] 23:30:[address] ANGIOGRAM 2020-02-03 [facility] ABDOMEN/PELVIS 23:30:25 Medical Branch URINALYSIS 2020-02-03 [facility] 22:47:00 Medical Branch GLUCOSE 2020-02-03 [facility] xas 22:29:00 Medical Branch PROTEIN TOTAL 2020-02-03 [facility] xas 22:29:00 Medical [facility] URIC ACID 2020-02-03 [facility] xas 22:29:00 Medical Branch AMYLASE 2020-02-03 [facility], [facility] xas 22:29:00 Medical Branch LIPASE 2020-02-03 [facility] 22:29:00 Medical Branch FERRITIN SERUM 2020-02-03 [facility] xas 22:29:00 Medical Branch TROPONIN I 2020-02-03 [facility] 22:29:00 Medical Branch THYROID STIMULATING 2020-02-03 [facility] HORMONE 22:29:00 Medical Branch HEPATIC FUNCTION PANEL 2020-02-03 [facility] ([id number]) (ALB,T.PRO,BILI 22:29:00 Medical Branch T,BU/BC,ALT,AST,ALK PHOS) BASIC METABOLIC PANEL 2020-02-03 [facility] (NA, K, CL, CO2, 22:29:00 Medical Branch GLUCOSE, BUN, CREATININE, CA) CBC WITH DIFF 2020-02-03 Óscar Hermos[facility] 22:29:00 Medical Branch PROTHROMBIN TIME / INR 2020-02-03 Óscar Hermosillo [facility] 22:29:00 Medical Branch ACTIVATED PARTIAL 2020-02-03 Óscar Hermos[facility] THRMPLAS AM[place]IS 22:29:00 [facility] N-TERMINAL PRO-BNP 2020-02-03 [facility] 22:29:00 Medical Branch CONSENT/REFUSAL FOR 2020-02-03 Doctor Unassigned, No [facility] DIAGNOSIS AND TREATMENT 21:40:53 Name [facility] [place] POCT GLUCOSE (AUTOMATED) 2019-11-21 [facility] 16:56:00 Medical Branch POCT GLUCOSE (AUTOMATED) 2019-11-21 [facility] 16:35:00 Medical Branch POCT GLUCOSE (AUTOMATED) 2019-11-21 [facility] 15:58:00 Medical Branch POCT GLUCOSE (AUTOMATED) 2019-11-21 [facility] 12:31:00 Medical Branch VANCOMYCIN TROUGH 2019-11-21 Humaira [facility] 11:00:00 Medical Branch POCT GLUCOSE (AUTOMATED) 2019-11-21 [facility] 00:26:00 Medical Branch POCT GLUCOSE (AUTOMATED) 2019-11-20 [facility] 21:34:00 Medical Branch XR CHEST 1 VW 2019-11-20 Ethan [facility] xas 21:23:55 Medical Branch POCT GLUCOSE (AUTOMATED) 2019-11-20 [facility] 15:53:00 Medical Branch POCT GLUCOSE (AUTOMATED) 2019-11-20 [facility] 12:34:00 [facility] BASIC METABOLIC PANEL 2019-11-20 Humaira [facility] (NA, K, CL, CO2, 08:35:00 Medical Branch GLUCOSE, BUN, CREATININE, CA) CBC WITH DIFFERENTIAL 2019-11-20 [facility] 08:35:00 [facility] Branch POCT GLUCOSE (AUTOMATED) 2019-11-20 [facility] 01:29:00 [facility] NM BONE WHOLE BODY 3 2019-11-19 [facility] PHASE 21:28:28 [facility] POCT GLUCOSE (AUTOMATED) 2019-11-19 [facility] 16:03:00 Medical Branch VANCOMYCIN TROUGH 2019-11-19 [facility] 12:23:00 Medical Branch POCT GLUCOSE (AUTOMATED) 2019-11-19 [facility], [facility] 12:15:00 Medical Branch POCT GLUCOSE (AUTOMATED) 2019-11-19 [facility], [facility] 01:14:00 Medical Branch POCT GLUCOSE (AUTOMATED) 2019-11-18 [facility], Crowdcaregwynn oakd [facility] 20:42:00 Medical Branch POCT GLUCOSE (AUTOMATED) 2019-11-18 [facility], [facility] Univer sity [facility] 16:24:00 Medical Branch BILATERAL DUPLEX SCAN OF 2019-11-18 [facility] ARTERY BY VASCULAR LAB 14:48:56 Medical B ranch POCT GLUCOSE (AUTOMATED) 2019-11-18 [facility] Univer sity [facility] 12:26:[address] ABDOMEN PELVIS W 2019-11-18 [facility] [place] [facility]AST 01:04:17 Medical Branch POCT GLUCOSE (AUTOMATED) 2019-11-18 Aldevelyns, [employer]d[facility]ammad [facility] [place] 00:47:00 [facility] POCT GLUCOSE (AUTOMATED) 2019-11-17 Aldaas, Mohammad [facility] [place] 21:03:00 [facility] POCT GLUCOSE (AUTOMATED) 2019-11-17 Aldaas, [facility] [place] 16:11:00 [facility] POCT GLUCOSE (AUTOMATED) 2019-11-17 Aldaas, Mohammad [facility] [place] 12:19:00 [facility] Branch POCT GLUCOSE (AUTOMATED) 2019-11-17 Aldaas, [employer]appy[employer]d [facility] [place] 04:14:00 [facility] Branch LACTIC ACID WHOLE BLOOD 2019-11-17 [facility] 03:04:00 [facility] POCT GLUCOSE (AUTOMATED) 2019-11-17 Heather Hermosillo [facility] 01:05:[address] [facility] [address] FOOT LEFT W CONTRAST 2019-11-17 Timur Gerardo [facility] 00:03:16 [facility] [place] XR ANKLE 3+ VW LEFT 2019-11-16 [facility] 22:17:28 [facility] COVID-19 (ID NOW RAPID 2019-11-16 [facility] 22:15:00 [facility] BLOOD CULTURE SCREEN 2019-11-16 [facility] 22:12:00 Medical Branch BASIC METABOLIC PANEL 2019-11-16 [facility] (NA, K, CL, CO2, 22:12:00 [facility] GLUCOSE, BUN, CREATININE, CA) CBC WITH DIFFERENTIAL 2019-11-16 [facility] 22:12:00 [facility] GLYCOSYLATED HEMOGLOBIN 2019-11-16 [facility] (A1C[facility] 22:12:00 [facility] LACTIC ACID WHOLE BLOOD 2019-11-16 [facility] 22:11:00 Medical Branch BLOOD CULTURE SCREEN 2019-11-16 [facility] 21:45:00 Medical Branch CONSENT/REFUSAL FOR 2019-11-16 Doctor Unassigned, No [facility] DIAGNOSIS AND TREATMENT 21:22:[address] [place] [address] ABDOMEN PELVIS W 2019-09-18 Rosemary Carrillo [facility] CONTRAST 02:32:17 Medical Branch LIPASE 2019-09-18 [facility] exas 01:44:00 Medical Branch COMP. METABOLIC PANEL 2019-09-18 [facility] ([id number]) 01:44:00 Medical Branch CBC WITH DIFFERENTIAL 2019-09-18 Starlaid [facility] 01:44:00 Medical Branch CORONAVIRUS COVID-19 2019-09-18 Starlaid [facility] TESTING 01:44:00 Medical Branch POCT GLUCOSE (AUTOMATED) 2019-08-15 [facility] 19[facility]44:[address] [facility] [address] ABDOMEN PELVIS W 2019-08-15 [facility] CONTRAST 19:08:31 Medical Branch XR CHEST 2 VW 2019-08-15 [facility] xas 18:00:38 Medical Branch XR FOOT 3+ VW LEFT 2019-08-15 [facility] 18:00:38 [facility] URINALYSIS 2019-08-15 [facility] xa 17:45:00 [facility] LIPASE 2019-08-15 [facility] xa 17:39:00 [facility] TROPONIN I 2019-08-15 [facility], [facility] xa 17:39:00 [facility] HEPATIC FUNCTION PANEL 2019-08-15 [facility] ([id number]) (ALB,T.PRO,BILI 17:39:00 Medical Branch T,BU/BC,ALT,AST,ALK PHOS) BASIC METABOLIC PANEL 2019-08-15 [facility] (NA, K, CL, CO2, 17:39:00 [facility] GLUCOSE, BUN, CREATININE, CA) CBC WITH DIFFERENTIAL 2019-08-15 [facility] 17:39:00 [facility] PROTHROMBIN TIME / INR 2019-08-15 [facility] [place] 17:39:00 [facility] EKG-12 LEAD 2019-08-15 [facility] xa 17:30:15 [facility] CONSENT/REFUSAL FOR 2019-08-15 Doctor Unassigned, [facility] DIAGNOSIS AND TREATMENT 16:50:06 Name [facility] POCT GLUCOSE (AUTOMATED) 2019-08-09 Timur Gerardo [facility] 16:28:00 [facility] POCT GLUCOSE (AUTOMATED) 2019-08-09 Timur Gerardo [facility] 13:34:00 [facility] MESENTERIC ARTERY DUPLEX 2019-08-09 Edgardo [facility] BY VASCULAR LAB 13:12:31 [facility] VITAMIN B12, LEVEL 2019-08-09 Humaira [facility] 08:54:00 [facility] BASIC METABOLIC PANEL 2019-08-09 [facility] (NA, K, CL, CO2, 08:54:00 Medical Branch GLUCOSE, BUN, CREATININE, CA) IRON PANEL 2019-08-09 [facility] xa 08:54:00 Medical Branch CBC WITH DIFFERENTIAL 2019-08-09 [facility] 08:54:00 Medical Branch POCT GLUCOSE (AUTOMATED) 2019-08-09 [facility] 00:48:00 Medical Branch FOLATE 2019-08-08 [facility] xa 23:30:00 Medical [facility] POCT GLUCOSE (AUTOMATED) 2019-08-08 [facility] 22:24:00 [facility] POCT GLUCOSE (AUTOMATED) 2019-08-08 [facility] 16:41:00 Medical Branch FL UPPER GI SERIES 2019-08-08 Barbara Maria [facility] 16:31:22 Medical Branch POCT GLUCOSE (AUTOMATED) 2019-08-08 [facility] 12:23:00 Medical Branch FERRITIN SERUM 2019-08-08 [facility] xa 08:58:00 Medical Branch BASIC METABOLIC PANEL 2019-08-08 [facility] (NA, K, CL, CO2, 08:58:00 Medical Branch GLUCOSE, BUN, CREATININE, CA) CBC WITH DIFFERENTIAL 2019-08-08 [facility] 08:58:00 [facility] POCT GLUCOSE (AUTOMATED) 2019-08-08 [facility] 01:40:00 Medical Branch POCT GLUCOSE (AUTOMATED) 2019-08-07 [facility] 20:06:00 Medical Branch TROPONIN I 2019-08-07 [facility] 15:51:00 Medical Branch POCT GLUCOSE (AUTOMATED) 2019-08-07 [facility] 12:32:00 [facility] MAGNESIUM 2019-08-07 [facility] 08:54:00 [facility] TROPONIN I 2019-08-07 [facility] 08:54:00 Medical [facility] BASIC METABOLIC PANEL 2019-08-07 [facility] (NA, K, CL, CO2, 08:54:00 Medical Branch GLUCOSE, BUN, CREATININE, CA) CBC WITH DIFFERENTIAL 2019-08-07 [facility] 08:54:00 [facility] N-TERMINAL PRO-BNP 2019-08-07 [facility] 08:54:00 Medical Branch TROPONIN I 2019-08-07 [facility] 03:07:00 Medical Branch US ABDOMEN COMPLETE 2019-08-07 [facility] 01:18:27 Medical Branch POCT GLUCOSE (AUTOMATED) 2019-08-07 [facility] 00:41:00 Medical Branch POCT GLUCOSE (AUTOMATED) 2019-08-06 [facility] 22:34:00 Medical Branch XR CHEST 1 VW 2019-08-06 Juan José [facility] xas 20:30:27 Medical Branch LIPASE 2019-08-06 Juan José [facility] xas 19:52:00 Medical Branch MAGNESIUM 2019-08-06 [facility] 19:52:00 Medical Branch TROPONIN I 2019-08-06 [facility] 19:52:00 Medical Branch THYROID STIMULATING 2019-08-06 [facility] HORM[facility] 19:52:00 Medical Branch COMP. METABOLIC PANEL 2019-08-06 [facility] ([id number]) 19:52:00 [facility] LIPID PANEL 2019-08-06 [facility] ([id number])(TOTAL 19:52:00 Medical Branch CHOLESTEROL, TRIGLYCERIDES, HDL) CBC WITH DIFFERENTIAL 2019-08-06 Juan José [facility] 19:52:00 Medical Branch GLYCOSYLATED HEMOGLOBIN 2019-08-06 [facility] (A1C) 19:52:00 Medical Branch PROTHROMBIN TIME / INR 2019-08-06 Juan José [facility] 19:52:00 Medical Branch ACTIVATED PARTIAL 2019-08-06 Juan José [facility] THRMPLAS AM[place]IS 19:52:00 Medical Branch EKG-12 LEAD 2019-08-06 Juan José [facility] xas 19:51:05 Medical Branch EKG-12 LEAD 2019-08-[address] [facility] xas 19:15:17 Medical Branch ASSIGNMENT OF BENEFITS 2019-08-06 Doctor Unassigned, No [facility] [place] 18:24:58 Name Medical Branch PHYSICIAN ORDERS 2019-08-06 Doctor Unassigned, No [facility] 05:01:00 Name Medical Branch POCT GLUCOSE (AUTOMATED) 2019-07-18 Rosemary Carrillo [facility] 23:33:00 Medical Branch SEDIMENTATION RATE 2019-07-18 vashti [facility] 20:45:00 Medical Branch ACTIVATED PARTIAL 2019-07-18 Alek [facility] THRMPLAS AM[place]ILIS 20:45:00 Medical Branch ECHO ROUTINE W/DOPPLER 2019-07-18 Ryan Medeiros [facility] COLOR 17:35:06 Medical Branch TROPONIN I 2019-07-18 vashti [facility] 17:10:00 Medical [facility] POCT GLUCOSE (AUTOMATED) 2019-07-18 Rosemary Carrillo [facility] 15:35:00 Medical Branch XR FOOT 3+ VW LEFT 2019-07-18 [facility] 12:20:[address] ABDOMEN PELVIS W 2019-07-18 [facility] CONTRAST 11:56:17 Medical Branch POCT GLUCOSE (AUTOMATED) 2019-07-18 Rosemary Carrillo [facility] 10:18:00 Medical Branch LIPASE 2019-07-18 [facility] 10:12:00 Medical Branch C-REACTIVE PROTEIN 2019-07-18 Alek [facility] 10:12:00 Medical Branch TROPONIN I 2019-07-18 [facility] 10:12:00 Medical Branch TROPONIN I 2019-07-18 Rosemary Carrillo [facility] [place]as 04:03:00 Medical Branch COMP. METABOLIC PANEL 2019-07-18 Starlaid Alkelli [facility] ([id number]) 04:03:00 Medical Branch CBC WITH DIFFERENTIAL 2019-07-18 Rosemary Carrillo [facility] 04:03:00 Medical Branch PROTHROMBIN TIME / IN[facility] 2019[facility]07[facility]18 [facility] 04:03:00 Medical Branch N-TERMINAL PRO-BNP 2019-07-[address] [facility] [place] 04:03:00 Medical Branch XR CHEST 1 VW 2019-07-18 [facility] [place] 03:56:01 Medical Branch EKG-12 LEAD 2019-07-18 [facility] [place] 03:45:46 Medical Branch EKG-12 LEAD 2019-07-18 [facility] [place] 03:39:16 Medical Branch EKG-12 LEAD 2019-07-18 [facility], [facility] [place] 03:37:20 Medical Branch POCT GLUCOSE (AUTOMATED) 2019-06-26 [facility] 23:04:00 Medical Branch POCT GLUCOSE (AUTOMATED) 2019-06-26 Jeffry Shirley iversity [facility] 17:50:00 Medical Branch MAGNESIUM 2019-06-26 [facility] 09:44:00 Medical Branch BASIC METABOLIC PANEL 2019-06-26 [facility] (NA, K, CL, CO2, 09:44:00 Medical Branch GLUCOSE, BUN, CREATININE, CA) CBC WITH DIFFERENTIAL 2019-06-26 [facility] 09:44:00 Medical Branch ACTIVATED PARTIAL 2019-06-26 [facility] THRLAS [place] 05:38:00 Medical Branch ACTIVATED PARTIAL 2019-06-26 [facility]ERG[facility]PART[facility] [place] 02:45:00 Medical Branch POCT GLUCOSE (AUTOMATED) 2019-06-26 [facility] 02:42:00 Medical Branch ACTIVATED PARTIAL 2019-06-26 Jose [facility]ERG[facility]Y [facility]PART[facility] [place] 00:09:00 Medical Branch POCT GLUCOSE (AUTOMATED) 2019-06-25 [facility] 21:52:00 Medical Branch POCT ACT LOW RANGE 2019-06-25 Jeffry Shirley [facility] 20:37:00 Medical Branch POCT ACT LOW RANGE 2019-06-25 Jeffry Shirley [facility] 19:20:00 Medical Branch POCT GLUCOSE (AUTOMATED) 2019-06-25 Rober Jeffry Loan [facility] 15:41:00 Medical Branch ECHO ROUTINE W/DOPPLER 2019-06-25 [facility] COLOR 14:26:53 [facility] ACTIVATED PARTIAL 2019-06-25 Jose [facility]PART[facility] [place] 08:59:00 Medical Branch CREATININE, URINE RANDOM 2019-06-25 [facility] 08[facility]56[facility]00 [facility] UREA NITROGEN, URINE 2019-06-25 [facility] 08:56:00 [facility] SODIUM, URINE RANDOM 2019-06-25 [facility] 08:56:00 [facility] MAGNESIUM 2019-06-25 [facility] 08:56:00 [facility] TROPONIN I 2019-06-25 [facility] 08:56:00 [facility] BASIC METABOLIC PANEL 2019-06-25 [facility] (NA, K, CL, CO2, 08:56:00 Medical Branch GLUCOSE, BUN, CREATININE, CA) GALV/CLC ONLY - URINE 2019-06-25 [facility] DRUG (IMMUNOASSAY) - 08:56:00 Medical [facility] COMPREHENSIVE DRUG SCREEN CBC WITH DIFFERENTIAL 2019-06-25 [facility] 08:56:00 [facility] TROPONIN I 2019-06-25 [facility] [place] 02:38:00 Medical [place] ACTIVATED PARTIAL 2019-06-25 Jose [facility]Y DEPART[facility] [place] 02:38:00 Medical Branch POCT GLUCOSE (AUTOMATED) 2019-06-25 Rober Jeffry Loan [facility] 02:17:00 Medical Branch URINALYSIS 2019-06-24 Janeth Goodson [facility] 21:55:00 Medical Branch XR CHEST 1 VW 2019-06-24 Janeth Goodson [facility] 21:19:06 [facility] N-TERMINAL PRO-BNP 2019-06-24 Janeth Goodson [facility] 21:08:00 Medical [place] PHOSPHORUS 2019-06-24 [facility] [place] 21:08:00 Medical Branch MAGNESIUM 2019-06-24 Janeth Goodson [facility] 21:08:00 Medical Branch TROPONIN I 2019-06-24 Janeth Goodson [facility] 21:08:00 Medical Branch THYROID STIMULATING 2019-06-24 Janeth Goodson [facility] HORMONE 21:08:00 Medical Branch HEPATIC FUNCTION PANEL 2019-06-24 Janeth Goodson [facility] ([id number]) (ALB,T.PRO,BILI 21:08:00 Medical Branch T,BU/BC,ALT,AST,ALK PHOS) BASIC METABOLIC PANEL 2019-06-24 Janeth Goodson [facility] (NA, K, CL, CO2, 21:08:00 Medical Branch GLUCOSE, BUN, CREATININE, CA) CBC WITH DIFFERENTIAL 2019-06-24 Janeth Goodson [facility] 21:08:00 Medical Branch GLYCOSYLATED HEMOGLOBIN 2019-06-24 Cade Garcia [facility] (A1C) 21:08:00 Medical Branch PROTHROMBIN TIME / INR 2019-06-24 Janeth Goodson [facility] 21:08:00 Medical Branch EKG-12 LEAD 2019-06-24 Janeth Goodson [facility] 21:01:21 Medical Branch EKG-12 LEAD 2019-06-24 Janeth Goodson [facility] 20:56:30 Medical Branch NOTICE OF PRIVACY 2019-06-24 Doctor Unassigned, No [facility] PRACTICES 20:46:45 Name Medical Branch CONSENT/REFUSAL FOR 2019-06-24 Doctor Unassigned, No [facility] DIAGNOSIS AND TREATMENT 20:46:25 Name Medical [place] US SCROTUM AND CONTENTS 2019-02-06 Antonia Cedeno [facility] 01:39:04 Medical Branch BASIC METABOLIC PANEL 2019-02-05 Antonia Cedeno [facility] (NA, K, CL, CO2, 23:17:00 Medical Branch GLUCOSE, BUN, CREATININE, CA) CBC WITH DIFFERENTIAL 2019-02-05 Antonia Cedeno [facility] 23:17:00 Medical Branch URINALYSIS 2019-02-[address] [facility] [place] 23:17:00 Medical Branch CONSENT/REFUSAL FOR 2019-02-05 Doctor Unassigned, No [facility] DIAGNOSIS AND TREATMENT 22:21:30 Name Medical [place] POCT GLUCOSE (AUTOMATED) 2019-01-29 [facility] 16:43:00 Medical Branch POCT GLUCOSE [facility]AUTOMATED) [facility]-29 [facility] 14[facility] MAGNESIUM 2019-01-29 [facility] xa 09:12:00 Medical Branch BASIC METABOLIC PANEL 2019-01-29 [facility] (NA, K, CL, CO2, 09:12:00 Medical Branch GLUCOSE, BUN, CREATININE, CA) POCT GLUCOSE (AUTOMATED) 2019-01-29 [facility] 03:03:00 Medical Branch POCT GLUCOSE (AUTOMATED) 2019-01-29 [facility] 01:36:00 Medical Branch POCT GLUCOSE (AUTOMATED) 2019-01-28 [facility] 23:13:00 Medical Branch CBC WITH DIFFERENTIAL 2019-01-28 Mukesh Phelan [facility] 21:06:00 Medical Branch POCT ACT LOW RANGE 2019-01-28 [facility] 18:40:00 Medical Branch POCT ACT LOW RANGE 2019-01-28 [facility] 17:47:00 Medical Branch POCT ACT LOW RANGE 2019-01-28 [facility] 17:40:00 Medical Branch POCT GLUCOSE (AUTOMATED) 2019-01-28 [facility] 13:14:00 Medical Branch MAGNESIUM 2019-01-28 [facility] xa 09:34:00 Medical Branch BASIC METABOLIC PANEL 2019-01-28 [facility] (NA, K, CL, CO2, 09:34:00 Medical Branch GLUCOSE, BUN, CREATININE, CA) CBC WITH DIFFERENTIAL 2019-01-28 [facility] 09:34:00 Medical Branch ACTIVATED PARTIAL 2019-01-28 [facility] THRMPLAS [place] 04:52:00 Medical Branch POCT GLUCOSE (AUTOMATED) 2019-01-28 [facility] 01:52:00 Medical Branch POCT GLUCOSE (AUTOMATED) 2019-01-27 [facility] 23:35:00 Medical Branch POCT GLUCOSE (AUTOMATED) 2019-01-27 [facility] 20:40:00 Medical Branch POCT GLUCOSE (AUTOMATED) 2019-01-27 Juan José [facility] 17:44:00 Medical Branch ACTIVATED PARTIAL 2019-01-27 [facility] [place] 17:36:00 Medical Branch EKG-12 LEAD 2019-01-27 Juan José [facility] [place] 14:21:58 Medical Branch POCT GLUCOSE (AUTOMATED) 2019-01-27 Siva Can [facility] 12:55:00 Medical Branch MAGNESIUM 2019-01-27 [facility] [place] 05:14:00 Medical Branch TROPONIN I 2019-01-27 [facility] xa 05:14:00 Medical Branch BASIC METABOLIC PANEL 2019-01-27 [facility] (NA, K, CL, CO2, 05:14:00 Medical Branch GLUCOSE, BUN, CREATININE, CA) CBC WITH DIFFERENTIAL 2019-01-27 [facility] 05:14:00 Medical Branch ACTIVATED PARTIAL 2019-01-27 [facility] [place] 05:14:00 Medical Branch POCT GLUCOSE (AUTOMATED) 2019-01-27 Juan José [facility] 01:12:00 Medical Branch ACTIVATED PARTIAL 2019-01-26 [facility] [place] 22:32:00 Medical Branch POCT GLUCOSE (AUTOMATED) 2019-01-26 Juan José [facility] 21:36:00 Medical Branch XR ABDOMEN ACUTE SERIES 2019-01-26 [facility] 19:40[facility]00 Medical Branch CBC WITH DIFFERENTIAL 2019-01-26 Brian James [facility] 18:49:00 Medical Branch POCT GLUCOSE (AUTOMATED) 2019-01-26 [facility] 16:31:00 Medical Branch POCT GLUCOSE (AUTOMATED) 2019-01-26 Juan José [facility] 13:43:00 Medical Branch CBC WITH DIFFERENTIAL 2019-01-26 [facility] 11:31:00 Medical Branch MAGNESIUM 2019-01-26 [facility] [place] 11:30:00 Medical Branch BASIC METABOLIC PANEL 2019-01-26 [facility] (NA, K, CL, CO2, 11:30:00 Medical Branch GLUCOSE, BUN, CREATININE, CA) ACTIVATED PARTIAL 2019-01-26 [facility]ERG[facility]Y DEPART[facility] [place] 11:30:00 Medical Branch POCT GLUCOSE (AUTOMATED) 2019-01-26 [facility] 01:48:00 Medical Branch ACTIVATED PARTIAL 2019-01-25 [facility] [place] 23:11:00 Medical Branch POCT GLUCOSE (AUTOMATED) 2019-01-25 Juan José [facility] 21:53:00 Medical Branch POCT GLUCOSE (AUTOMATED) 2019-01-25 Juan José [facility] 17:18:00 Medical Branch BILATERAL VENOUS DUPLEX 2019-01-25 Brian James [facility] LOWER EXTREMITY BY 16:11:13 [facility] VASCULAR LAB POCT GLUCOSE (AUTOMATED) 2019-01-25 Siva Can [facility] 12:34:00 Medical Branch EKG-12 LEAD 2019-01-25 Juan José [facility] x[place] 12:28:41 Medical Branch ACTIVATED PARTIAL 2019-01-25 [facility] [place] 11:40:00 Medical Branch TROPONIN I 2019-01-25 [facility] [place] 09:04:00 Medical Branch MAGNESIUM 2019-01-25 [facility] x[facility] 05:36:00 Medical Branch TROPONIN I 2019-01-25 [facility] 05:36:00 Medical Branch BASIC METABOLIC PANEL 2019-01-25 [facility] (NA, K, CL, CO2, 05:36:00 Medical Branch GLUCOSE, BUN, CREATININE, CA) CBC WITH DIFFERENTIAL 2019-01-25 [facility] 05:36:00 Medical Branch EKG-12 LEAD 2019-01-25 [facility] x[place] 03:57:13 Medical Branch EKG-12 LEAD 2019-01-25 [facility] [place] 03:52:19 Medical Branch POCT GLUCOSE (AUTOMATED) 2019-01-24 Siva Can [facility] 23:31:[address] ABDOMEN PELVIS W 2019-01-24 Siva Can [place] [facility] [place] CONTRAST 22:55:10 Medical Branch XR CHEST 1 VW 2019-01-24 Juan José [facility] x[place] 22:06:35 Medical Branch LIPASE 2019-01-24 Juan José [facility] x[place] 21:50:00 Medical Branch MAGNESIUM 2019-01-24 Alf [facility] xa 21:50:00 Medical Branch TROPONIN I 2019-01-24 Juan José [facility] xas 21:50:00 [facility] HEPATIC FUNCTION PANEL 2019-01-24 Juan José [facility] ([id number]) (ALB,T.PRO,BILI 21:50:00 Medical Branch T,BU/BC,ALT,AST,ALK PHOS) BASIC METABOLIC PANEL 2019-01-24 [facility] ([facility], K, CL, CO2, 21:50:00 Medical Branch GLUCOSE, BUN, CREATININE, CA) CBC WITH DIFFERENTIAL 2019-01-24 Can [facility] 21:50:00 [facility] PROTHROMBIN TIME / INR 2019-01-24 [facility] 21:50:00 Medical Branch ACTIVATED PARTIAL 2019-01-24 Juan José [facility] THRMPLAS [place] 21:50:00 [facility] EKG-12 LEAD 2019-01-24 Juan José [facility] xa 21:05:00 [facility] NOTICE OF PRIVACY 2019-01-24 Doctor Unassigned, No [facility] PRACTICES 20:21:09 Name Medical Branch XR CHEST 1 VW 2019-01-19 [facility] 13:12:47 Medical Branch MAGNESIUM 2019-01-19 [facility] 11:12:00 Medical Branch BASIC METABOLIC PANEL 2019-01-19 Alf [facility] (NA, K, CL, CO2, 11:12:00 Medical Branch GLUCOSE, BUN, CREATININE, CA) POCT GLUCOSE (AUTOMATED) 2019-01-19 [facility] 08:49:00 [facility] POCT GLUCOSE (AUTOMATED) 2019-01-19 [facility] 04:16:00 [facility] POCT ACT LOW RANGE 2019-01-19 [facility] 02:10:00 Ahmed Mohamed Medical Branch POCT GLUCOSE (AUTOMATED) 2019-01-18 Benji [facility] 21:00:00 Medical Branch POCT GLUCOSE (AUTOMATED) 2019-01-18 [facility] 15:58:00 Medical Branch POCT GLUCOSE (AUTOMATED) 2019-01-18 Benji [facility] 13:16:00 Medical Branch MAGNESIUM 2019-01-18 Alf [facility] 08:49:00 Medical Branch TROPONIN I 2019-01-[address] [facility] [place] 08:49:00 Medical Branch HEPATIC FUNCTION PANEL 2019-01-18 Brian James [facility] ([id number]) (ALB,T.PRO,BILI 08:49:00 Medical Branch T,BU/BC,ALT,AST,ALK PHOS) PROTHROMBIN TIME / INR 2019-01-18 [facility] 08:49:00 Medical Branch POCT GLUCOSE (AUTOMATED) 2019-01-18 Benji [facility] 08:23:00 Medical Branch POCT GLUCOSE (AUTOMATED) 2019-01-18 Benji [facility] 05:04:00 Medical Branch POCT GLUCOSE (AUTOMATED) 2019-01-18 [facility] 00:48:00 Medical Branch TROPONIN I 2019-01-[address] [facility] [place] 21:12:00 Medical Branch POCT GLUCOSE (AUTOMATED) 2019-01-17 Benji [facility] 20:56:00 Medical Branch POCT GLUCOSE (AUTOMATED) 2019-01-17 Benji [facility] 16:32:00 Medical Branch TROPONIN I 2019-01-17 [facility] [place] 15:56:00 Medical Branch POCT GLUCOSE (AUTOMATED) 2019-01-17 [facility] 12:21:00 Medical Branch POCT GLUCOSE (AUTOMATED) 2019-01-17 Benji [facility] 09:35:00 Medical Branch TROPONIN I 2019-01-[address] [facility] [place] 08:48:00 Medical Branch XR CHEST 1 VW 2019-01-[address] [facility] xa 05:21:55 Medical Branch TROPONIN I 2019-01-[address] [facility] xa 05:11:00 Medical Branch BASIC METABOLIC PANEL 2019-01-17 Shekhar Allen [facility] (NA, K, CL, CO2, 05:11:00 Medical Branch GLUCOSE, BUN, CREATININE, CA) CBC WITH DIFFERENTIAL 2019-01-17 Shekhar Allen [facility] 05:11:00 Medical Branch GLYCOSYLATED HEMOGLOBIN 2019-01-17 Martha Rowe [facility] (A1C) 05:11:00 Medical Branch EKG-12 LEAD 2019-01-17 Shekhar Allen [facility] 05:06:38 Medical Branch EKG-12 LEAD 2019-01-17 Shekhar Allen [facility] 04:55:06 Medical Branch NOTICE OF PRIVACY 2019-01-17 Doctor Unassigned, No [facility] PRACTICES 04:54:43 Name [facility] CONSENT/REFUSAL FOR 2019-01-17 Doctor Unassigned, No [facility] DIAGNOSIS AND TREATMENT 04:50:58 Name [facility] HOSPITAL ADMISSION 2019-01-16 Doctor Unassigned, No [facility] 05:01:00 Name [facility] Computed tomography 2017-10-[address] [facility] - angiography of brain 00:00:00 Patients [facility] angiography of chest 2017-10-23 [facility]00 Patients [facility] Computed tomography of 2017-10-23 [address] [facility] - brain without radiopaque 00:00:00 Patient s Medical contrast Center Computed tomography of 2017-04-04 JACQUELYN MONTES DE OCA [facility] - brain without radiopaque 00:00:00 Patient s [facility] contrast Center Computed tomography of 2017-04-04 JACQUELYN MONTES DE OCA [facility] - cervical spine without 00:00:00 Patients [facility] contrast Center US abdomen complete 2017-03-[address] 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 Doctor Unassigned, No [facility] 06:01:00 Name Medical Branch Encounters Start End Encounter Admission Attending Care Care Encounter Source Date/Time Date/Time Type Type Clinicians Facility Department ID 2021-03-22 Emergency [facility] [id number] Univers 15:25:20 ity of [facility] Branch 2021-03-22 Emergency [facility] [id number] Univers 10:56:41 ity of [facility] 2021-03-21 Emergency [facility] [id number] Univers 18:15:08 ity of [facility] Branch 2021-03-21 Emergency [facility] [id number] Univers 17:18:22 ity of [facility] Branch 2021-03-21 Emergency [facility] [id number] Univers 12:58:19 ity of [facility] Branch 2021-03-21 Emergency [facility] [id number] Univers 04:06:22 ity of [facility] Branch 2021-03-21 Emergency [facility] [id number] Univers 00:12:27 ity of [facility] Branch 2021-03-20 Emergency [facility] [id number] Univers 15:57:30 ity of [facility] Branch 2021-03-20 Emergency [facility] [id number] Univers 00:55:44 ity of [facility] Branch 2021-03-19 Emergency [facility] [id number] Univers 17:28:47 [facility] [place] [facility] 2021-03-19 Emergency [facility] [id number] Univers 03:16:03 ity of [facility] Branch 2021-03-18 Emergency [facility] [id number] Univers 16:02:28 ity of [facility] Branch 2021-03-18 Emergency [facility] [id number] Univers 14:48:51 ity of [facility] Branch 2021-03-18 Emergency [facility] [id number] Univers 13:56:50 ity of [facility] Branch 2021-03-18 Emergency [facility] [id number] Univers 11:19:59 ity of [facility] 2020-08-23 Inpatient HCACL FERNANDO [facility] 17:41:[address] [place] [address] 2020-04-04 Inpatient Zhu, HCAMN HCAMN [facility] 14:40:00 Edward [id number] [facility] 2019-10-15 Inpatient ANNEL MishraPM ENDO [id number] [facility] 15:30:00 Finn [id number] [facility] 2021-02-15 2021-02-15 [facility] [id number] Univers 15:00:00 15:00:00 ALECIA [id number] [facility] 2021-02-15 2021-02-15 [facility] [id number] Univers 15:00:00 15:00:00 [facility]-01[facility]11 2021-01-11 Outpatient R [facility] [id number] Univers 14:30:00 14:30:00 [id number] [facility] 2021-01-11 2021-01-11 [facility] [id number] Univers 10:45:00 10:45:00 GINA baugh o f [facility] 2021-01-05 2021-01-05 Transition Latrice Aleman [id number] Univers 00:00:00 00:00:00 of Care Rico Vazquez [id number] ity of [id number] [id number] [facility] 403 Branch 2021-01-01 2021-01-04 Hospital [facility] [id number] Univers 14:18:00 18:10:00 Encounter Timur Gerardo [id number] ity [id number] [id number] [facility] 081 Branch 2021-01-01 2021-01-01 Orders Doctor TATO [id number] Univers 00:00:00 00:00:00 Only Unassigned, CRISTINA [id number] [place]y [place] [facility] [id number] Juan J as [id number] [facility] 009 Branch 2020-12-17 2020-12-17 Transition Latrice Harding [id number] Univers 00:00:00 00:00:00 of Care Josselyn Vazquez [id number] it [id number] [id number] [facility] 403 Branch 2020-12-14 2020-12-16 Emergency Antonia Cedeno S [facility] [id number] Univers 17:50:00 17:46:00 Ana Maria Cardenas [id number] ity of [place] [id number] [facility] [id number] [facility] 081 Branch 2020-11-16 2020-11-16 Orders Doctor TATO [id number] Univers 00:00:00 00:00:00 Only Unassigned, CRISTINA [id number] [place] [facility] [id number] Juan J [id number] [facility] 009 Branch 2020-10-30 2020-11-05 Inpatient [facility] [id number] [facility] 16:50:00 13:52:[id number] [facility] 2020-10-31 2020-10-31 Outpatient AMELIA Carrera LABO [id number] [facility] 08:22:00 08:22:00 Fede [id number] [facility] 2020-10-28 2020-10-28 Hospital Radiology [facility] [id number] 08:30:17 23:59:00 Encounter Sera [id number] [place] [id number] [place] [id number] 2020-10-28 2020-10-28 Hospital Radiology [facility] [id number] Univers 08:30:17 23:59:00 Encounter Sera [id number] ity of [place] [id number] [facility] [id number] [facility] 807 Branch 2020-10-28 2020-10-28 Outpatient R RADIOLOGY [facility] [id number] Univers 09:00:00 09:00:00 [id number] [facility] [place] [facility] 2020-10-28 2020-10-28 Outpatient R RADIOLOGY [facility] [id number] Univers 00:00:00 00:00:00 [facility] 2020-10-12 2020-10-12 Office [facility] [id number] Univers 14:02:10 14:50:48 Visit Perla Zamora [id number] i ty [facility] [id number] [id number] [address] 2020-10-12 2020-10-12 [facility] [id number] Univers 14:00:00 14:00:00 [facility] [id number] [facility] 2020-10-12 2020-10-12 [facility] [id number] Univers 14:00:00 14:00:00 [facility] 2020-10-06 2020-10-06 Office [facility] 1.2.840.114 [id number] 10:43:51 11:59:29 Visit Gina Zamora [id number] [place] [id number] Professio [id number] [address] 2020-10-06 2020-10-06 Office [facility] [place] 1.2.840.114 [id number] Univers 10:43:51 11:59:29 Visit Gina Zamora 350.1.13.10 itvashti [facility] [phone] [place] [address] 2020-10-06 2020-10-06 [facility] [id number]-20 Univers 10:30:00 10:30:00 GINA [id number] amauri o [facility] 2020-10-06 2020-10-06 Outpatient [facility] [id number] Univers 10:30:00 10:30:00 GINA baugh o [facility] 2020-10-06 2020-10-06 Orders Doctor TATO 1.2.840.114 [id number] Univers 00:00:00 00:00:00 Only Unassigned, CRISTINA 350.1.13.10 ity of [place] [facility] 4.2.7.2.686 Juan J as [phone] [facility] 00[address] 2020-10-05 2020-10-05 Outpatient R [facility] [id number] L-20 Univers 14:00:00 14:00:00 PERLA [id number] ity of [facility] 2020-09-28 2020-09-28 Emergency [facility] 1.2.840.114 [id number] Univers 17:28:00 21:08:00 Óscar Zamora 350.1.13.10 ity of [place] [phone] [facility] 084 Branch 2020-09-28 2020-09-28 Transition Latrice French 1.2.840.114 [id number] Univers 00:00:00 00:00:00 of Care Gilda Zelayay 350.1.13.10 it y of [place] [phone] [facility] 403 [address] 2020-09-23 2020-09-26 [facility] Siva Can [facility] 1.2.840.1 14 [id number] Univers 13:50:00 18:28:00 Encounter Blake Fernandez 350.1.13.10 ity of [place] [phone] [facility] 081 [address] 2020-09-22 2020-09-22 [facility] [id number] L-20 Univers 09:45:00 09:45:00 GINA [id number] amauri workman [facility] 2020-09-22 2020-09-22 Outpatient [facility] [id number] Univers 09:45:00 09:45:00 GINA palacio [facility] 2020-09-10 2020-09-10 [facility] [id number] L-20 Univers 16:15:00 16:15:00 [facility] [id number] [facility] 2020-09-10 2020-09-10 Outpatient R CHING [facility] [id number] Univers 16:15:00 16:15:00 PERLA ity [facility] 2020-09-09 2020-09-09 Transition Latrice Aleman 1.2.840.114 [id number] Univers 00:00:00 00:00:00 of Care Rico Vazquez 350.1.13.10 ity of [place] [phone] [address] 2020-09-08 2020-09-08 [facility] [id number] Univers 08:30:00 08:30:00 GINA [id number] amauri workman [facility] 2020-09-08 2020-09-08 Outpatient [facility] [id number] Univers 08:30:00 08:30:00 GINA workman [facility] 2020-09-02 2020-09-07 Hospital Brooks Tato [facility] 1.2.840.114 [id number] Univers 16:46:00 18:45:00 [facility]counter [facility] 350. 1.13.10 ity of [place] 4.2.7.2.686 Kaylyn Longo [phone] [address] ([facility]) 2020-08-26 2020-08-26 Office [facility] 1.2.840.114 [id number] Univers 10:44:06 11:14:06 Visit [facility] 350.1.13.10 it y of [place].2.[place] [phone] [address] Office Building 2020-08-26 2020-08-26 Outpatient R LAVELL [facility] [id number] Univers 10:30:00 10:30:00 [id number] ity [facility] 2020-08-26 2020-08-26 Outpatient R GUNTER, [facility] [id number] Univers 10:30:00 10:30:00 [facility] 2020-08-25 2020-08-25 Outpatient [facility] [id number] L-20 Univers 10:00:00 10:00:00 GINA [id number] franciscovashti workman [facility] 2020-08-25 2020-08-25 Outpatient [facility] [id number] Univers 10:00:00 10:00:00 GINA singhvashti workman [facility] 2020-08-24 2020-08-24 [facility] [id number] L-20 Univers 09:00:00 09:00:00 DEIDRE [id number] [facility] 2020-08-24 2020-08-24 Outpatient [facility] [id number] Univers 09:00:00 09:00:00 [facility] 2020-08-21 2020-08-21 Office [facility] [place] 1.2.840.114 [id number] Univers 08:43:52 09:13:46 Visit Gina Zamora 350.1.13.10 [facility] 4.2.7.2.686 Noe Pickett [phone] [place] dical [address] 2020-08-21 2020-08-21 Outpatient R [facility] [id number] L-20 Univers 08:30:00 08:30:00 GINA [id number] franciscovashti [facility] 2020-08-21 2020-08-21 Outpatient R [facility] [id number] Univers 08:30:00 08:30:00 GINA singhvashti workman [facility] 2020-08-19 2020-08-19 Outpatient MAURILIO, PEGGY OPLA [id number] [facility] 07:13:00 07:13:00 DOES_NOT [id number] [facility] 2020-08-10 2020-08-14 Inpatient EM ANNEL MontanezCL INTE.02 [id number] [facility] 09:09:00 18:56:00 Johnie [address]10 [facility] 2020-08-11 2020-08-11 Outpatient [facility] [id number] L-20 Univers 09:15:00 09:15:00 [facility] [id number] [facility] 2020-08-11 2020-08-11 Outpatient R [facility] [id number] Univers 09:15:00 09:15:00 GINA ity [facility] 2020-08-07 2020-08-07 Outpatient R [facility] [id number] L-20 Univers 10:00:00 10:00:00 GINA [id number] [facility] 2020-08-07 2020-08-07 Outpatient R [facility] [id number] Univers 10:00:00 10:00:00 [facility] 2020-07-27 2020-08-06 [facility] Rosa M Galvan 1.2.840.1 14 [id number] Univers 12:13:00 17:15:00 Encounter Minnie Cardona 350.1.13.10 ity [facility] 4.2.7.2.686 [place] MartyDrew [phone] [facility] [address] [place] 2020-07-24 2020-07-24 Outpatient R [facility] [id number] L-20 Univers 13:00:00 13:00:00 GINA [id number] [facility] 2020-07-24 2020-07-24 Outpatient R [facility] [id number] Univers 13:00:00 13:00:00 [facility] 2020-07-21 2020-07-21 Transition Latrice Aleman 1.2.840.114 [id number] Univers 00:00:00 00:00:00 of Care Rico Vazquez 350.1.13.10 ity of [place]2.7.2.[place] [phone] [place] [address] Branch 2020-07-10 2020-07-20 [facility] Janeth Goodson 1.2.84 0.114 [id number] Univers 19:24:00 21:51:00 Encounter Oc Bryson 350.1.13.10 ity of [place] [facility] 4.2.7.2.686 Minnie Bowden [id number] Medical Lisa Marroquin5 Aleah meek 2020-07-17 2020-07-17 Outpatient [facility] [id number] -[id number] Univers 10:00:00 10:00:00 TATO [id number] ity [facility] 2020-07-17 2020-07-17 Outpatient Tim [facility] [id number] Univers 10:00:00 10:00:00 TATO baugh [facility] 2020-07-10 2020-07-10 Outpatient [facility] [id number] L-20 Univers 08:45:00 08:45:00 GINA [id number] amauri o [facility] 2020-07-10 2020-07-10 Outpatient [facility] [id number] Univers 08:45:00 08:45:00 GINA baugh o [facility] 2020-06-15 2020-06-15 Telephone [facility] 1.2.387.049 [id number] Univers 00:00:00 00:00:00 Tato Zamora 350.1.13.10 i ty of [place] [phone] [place] dical nal 204 [facility] 2020-06-11 2020-06-11 Office [facility] 1.2.840.114 [id number] Univers 13:43:55 13:58:55 Visit [facility] 350.1.13.10 it y of [place].2.686 [place] - [phone] Med ical [facility] 188 [address] 2020-06-11 2020-06-11 Outpatient Tim [facility] [id number] -[id number] Univers 13:30:00 13:30:00 TATO [id number] amauri [facility] 2020-06-11 2020-06-11 Outpatient Tim [facility] [id number] Univers 13:30:00 13:30:00 TATO baugh [facility] 2020-06-03 2020-06-03 Transition Latrice Aleman 1.2.840.114 [id number] Univers 00:00:00 00:00:00 of Care Rico Zelayay 350.1.13.10 ity of [place].7.2.[place] [phone] [facility] 403 [address] 2020-05-29 2020-06-02 [facility] Rosa M [facility] 1.2.840.1 14 [id number] Univers 09:12:00 16:02:00 Encounter Timur Gerardo 350.1.13.10 ity of [place] 4.2.7.2.686 [facility] [id number] [facility] 081 [address] 2020-05-29 2020-05-29 Outpatient Tim SHEARER [facility] [id number] -[id number] Univers 10:15:00 10:15:00 TATO [id number] [facility] 2020-05-29 2020-05-29 Outpatient Tim SHEARER [facility] [id number] Univers 10:15:00 10:15:00 TATO vashti [facility] 2020-05-28 2020-05-28 Outpatient Tim SHEARER [facility] [id number] -[id number] Univers 13:45:00 13:45:00 TATO [id number] [facility] 2020-04-23 2020-04-23 Office [facility] 1.2.840.114 [id number] Univers 13:48:18 14:03:18 Visit [facility] 350.1.13.10 it y of [place] - [phone] Med ica[address] 2020-04-23 2020-04-23 Outpatient Tim SHEARER [facility] [id number] -20 Univers 13:30:00 13:30:00 TATO [id number] [facility] 2020-04-23 2020-04-23 Outpatient Tim SHEARER [facility] [id number] Univers 13:30:00 13:30:00 TATO [facility] 2020-04-23 2020-04-23 Orders Doctor TATO 1.2.840.114 [id number] Univers 00:00:00 00:00:00 Only Unassigned, CRISTINA 350.1.13.10 ity of [place] [facility] 4.2.7.2.686 Juan J as [phone] [facility] 009 Branch 2020-04-09 2020-04-09 Office Janki [facility] 1.2.840.114 [id number] Univers 13:58:45 14:13:45 Visit [facility] 350.1.13.10 it y of [place] - [phone] Med ical [facility] 188 [address] 2020-04-09 2020-04-09 Outpatient [facility] [id number] -[id number] Univers 14:00:00 14:00:00 TATO [id number] ity of [facility] 2020-04-09 2020-04-09 Outpatient R JANKI [facility] [id number] Univers 14:00:00 14:00:00 TATO ity of [facility] 2020-03-27 2020-03-27 Transition Latrice Aleman 1.2.840.114 [id number] Univers 00:00:00 00:00:00 of Care Rico Vazquez 350.1.13.10 ity of [place].2.[place] [phone] [facility] 403 [address] 2020-03-15 2020-03-26 Hospital Rosa M Galvan 1.2.840.1 14 [id number] Univers 23:48:00 18:02:00 Encounter Kandis Hough 350.1.13.10 ity of [place] [facility] 4.2.7.2.68 6 [place] [phone] [facility] 098 Branch 2020-03-18 2020-03-18 Anesthesia Caio Najera 1. 2.840.114 [id number] Univers 13:52:00 16:42:00 Stephanie Franks 350.1.13.10 ity of [facility] 4.2.7.2.686 Jaun J as [phone] [facility] 103 [address] 2020-02-06 2020-02-06 Transition Latrice Aleman 1.2.840.114 [id number] Univers 00:00:00 00:00:00 of Care Rico Zelayay 350.1.13.10 ity of [place] 4.2.7.2.686 [facility] [phone] [facility] 403 [address] 2020-02-03 2020-02-05 [facility] Óscar Hermoslilo [facility] 1.2.8 40.114 [id number] Univers 16:55:00 20:40:00 Encounter Martha Rowe 350.1.13.10 ity of [place] 4.2.7.2.686 [facility] [phone] [address] 2020-01-17 2020-01-17 Outpatient [facility] [id number] -[id number] Univers 13:30:00 13:30:00 [id number] ity of [facility] 2020-01-17 2020-01-17 Outpatient [facility] [id number] Univers 13:30:00 13:30:00 SENDIL ity of [facility] 2019-12-02 2019-12-02 Outpatient [facility] [id number] -[id number] Univers 15:00:00 15:00:00 [id number] ity of [facility] 2019-12-02 2019-12-02 Outpatient R [facility] [id number] Univers 15:00:00 15:00:00 ity of [facility] 2019-11-24 2019-11-24 Outpatient R HUMAIRA, [facility] [id number] Univers 09:10:00 09:10:00 TIMUR ity of [facility] 2019-11-16 2019-11-21 Hospital Lopez Velazquez [facility] 1.2.840 .114 [id number] Univers 16:35:23 14:12:00 Encounter Heather Hermosillo 350.1.13.1 0 ity of [place] 4.2.7.2.686 [facility] [phone] [place] [address] Branch 2019-09-17 2019-09-18 Emergency Alfie [facility] 1.2.101.311 [id number] Univers 20:30:04 00:41:00 Rosemary Zamora 350.1.13.10 ity [facility] 4[place]2.[place].2.[place] [phone] [facility] 084 [address] 2019-09-17 2019-09-18 Emergency X ALFIE [facility] ERT [id number] Univers 20:30:04 00:41:00 ROSEMARY ity [facility] 2019-09-05 2019-09-05 Outpatient [facility] [id number] -[id number] Univers 14:00:00 14:00:00 SENDIL [id number] ity [facility] 2019-09-05 2019-09-05 Outpatient [facility] [id number] Univers 14:00:00 14:00:00 [facility] 2019-09-05 2019-09-05 Telemedici [facility] 1.2.840.114 [id number] Univers 08:17:17 08:47:17 ne Visit Sendneda Zamora 350.1.13.10 ity [facility] 4.2.7.2.[place] [phone] [place] dic[address] 2019-09-05 2019-09-05 Telephone [facility] 1.2.464.718 [id number] Univers 00:00:00 00:00:00 Ninfa Zamora 350.1.13.10 ity [facility] 4.2.7.2.[place] [phone] [place] d[place] n[place] [address] [place] [address] 2019-09-03 2019-09-03 Outpatient [facility] [id number] -[id number] Univers 10:30:00 10:30:00 SENDIL [id number] ity [facility] 2019-09-03 2019-09-03 Outpatient [facility] [id number] Univers 10:30:00 10:30:00 [facility] 2019-08-20 2019-08-20 Telephone [facility] 1.2.372.640 [id number] Univers 00:00:00 00:00:00 Fransisco SHAW 350.1.13.10 ity of [facility] 4.2.7.2.686 [place] [phone] [place] dical 390 [address] 2019-08-19 2019-08-19 Refill Nancy Lee 1.2.840.114 [id number] Univers 00:00:00 00:00:00 Lola Figueroa 350.1.13.10 it y of [facility] 4.2.7.2.686 [place] J as [phone] [facility] [address] [place] 2019-08-16 2019-08-16 Refill Nancy Lee 1.2.840.114 [id number] Univers 00:00:00 00:00:00 Lola Figueroa 350.1.13.10 it y of [facility] 4.2.7.2.686 [place] J as [phone] [facility] [address] [place] 2019-08-15 2019-08-15 [facility] 1.2.840.114 [id number] Univers 11:58:21 15:28:00 Pietro Zamora 350.1.13.10 i ty of [place] 4.[place].2.[place] [phone] [facility] [address] [place] 2019-08-15 2019-08-15 Case TATO Castillo 1.2.840.114 [id number] Univers 00:00:00 00:00:00 Management Ninfa FIGUEROA 350.1.13.10 ity of [facility] 4.2.7.2.686 [place] J as [phone] [facility] [address] [place] 2019-08-15 2019-08-15 Telephone Anna [facility] 1.2.810.711 [id number] Univers 00:00:00 00:00:00 Ninfa Zamora 350.1.13.10 ity of [place] 4.2.7.2.[place] [phone] [place] dical nal 059 [address] [facility] 2019-08-12 2019-08-12 Transition Latrice Ramirez 1.2.840.114 [id number] Univers 00:00:00 00:00:00 of Care Joan Vazquez 350.1.13.10 ity of [place] 4.2.7.2.[place] [id number] [facility] 403 [address] 2019-08-06 2019-08-09 Emergency Siva Can [facility] 1.2.840. 114 [id number] Univers 14:06:47 15:19:00 Timur Gerardo 350.1.13.10 ity of [place] 4.[place].2.[place] [id number] [facility] 081 [address] 2019-08-06 2019-08-06 Outpatient R TRAVIS, [facility] [id number] Univers 13:30:00 13:30:00 RICHMOND ity o f [facility] 2019-08-06 2019-08-06 Outpatient R [facility] [id number] -[id number] Univers 11:00:00 11:00:00 [id number] ity of [facility] 2019-08-06 2019-08-06 Outpatient R TRAVIS, [facility] [id number] Univers 11:00:00 11:00:00 RICHMOND ity o [facility] 2019-08-06 2019-08-06 Outpatient R TRAVIS, [facility] [id number] Univers 11:00:00 11:00:00 [facility] ity o [facility] 2019-08-06 2019-08-06 Orders Doctor TATO 1.2.840.114 [id number] Univers 00:00:00 00:00:00 Only Unassigned, CRISTINA 350.1.13.10 ity of [place] [facility] 4.2.7.2.686 Juan J as [phone] [facility] 009 [address] 2019-07-19 2019-07-19 Transition Latrice French 1.2.840.114 [id number] Univers 00:00:00 00:00:00 of Care Gilda Vazquez 350.1.13.10 it y of [place]2.7.2.[place] [phone] [facility] 403 [address] 2019-07-17 2019-07-18 Emergency Rosemary Carrillo 1.2.840 .114 [id number] Univers 21:36:10 21:05:00 Kendra Inman Clubb 350.1.13.1 0 ity of Hospital 4.2.7.2.686 [place] J as [id number] [facility] 090 [address] 2019-07-03 2019-07-03 Transition Latrice French 1.2.840.114 [id number] Univers 00:00:00 00:00:00 of Care Gilda Vazquez 350.1.13.10 it y of [place].2.[place] [id number] [facility] 403 [address] 2019-07-01 2019-07-01 Transition Latrice French 1.2.840.114 [id number] Univers 00:00:00 00:00:00 of Care Gilda Vazquez 350.1.13.10 it y of [place]2.7.2.[place] [id number] [facility] 403 [address] 2019-06-27 2019-06-27 Transition Latrice French 1.2.840.114 [id number] Univers 00:00:00 00:00:00 of Care Gilda Vazquez 350.1.13.10 it y of [place].2.7.2.[place] [phone] [facility] [address] [place] 2019-06-24 2019-06-26 Inpatient X [facility] [id number] Univers 14:51:01 18:37:00 JEFFRY ity [facility] 2019-06-24 2019-06-26 [facility] Janeth Goodson 1.2.84 0.114 [id number] Univers 14:51:01 18:37:00 Encounter Jeffry Shirley 350.1.1 3.10 ity of [facility] 4.2.7.2.686 Juan J as [id number] [facility] 090 [address] 2019-02-06 2019-02-06 Telephone TATO Bhatt 1.2.840.114 [id number] Univers 00:00:00 00:00:00 Cortney FIGUEROA 350.1.13.10 i ty of [facility] 4.2.7.2.686 Juan J as [phone] [facility] 008 [address] 2019-02-05 2019-02-05 Emergency [facility] 1.2.987.122 [id number] Univers 17:30:29 21:52:00 Antonia Zamora 350.1.13.10 i ty of [place] 4.[place].2.[place] [phone] [place] 851504 Branch 2019-01-30 2019-01-30 Transition Latrice Quevedo 1.2.840.114 [id number] Univers 00:00:00 00:00:00 of Care Rhonda Vazquez 350.1.13.10 it y of [place] 4.2.7.2.[place] [phone] [facility] 403 [address] 2019-01-24 2019-01-29 [facility] Siva Can 1.2.840.1 14 [id number] Univers 16:01:37 14:55:00 Encounter Dennis Finley 350.1.13.10 ity of [facility] 4.2.7.2.686 Juan J as [phone] [place] 851509 Branch 2019-01-22 2019-01-22 Transition Latrice Quevedo 1.2.840.114 [id number] Univers 00:00:00 00:00:00 of Care Rhonda Vazquez 350.1.13.10 it y of [place]2.7.2.[place] [phone] [facility] 403 [address] 2019-01-16 2019-01-19 [facility] Shekhar Allen 1.2.840.11 [id number] Univers 23:52:03 14:36:00 Encounter Martha Rowe 350.1.13.10 ity of [place] 4.2.7.2.686 [place] [id number] [place] 851509 Branch 2017-10-23 2017-10-27 Discharged 1 [facility] [id number] 17:29:00 16:54:00 Inpatient ALEXIS 90 [place] - Patient [facility] 2017-04-03 2017-04-04 [id number] 23:17:00 03:53:00 Emergency LAIRD 58 [place] - Room Patient [facility] 2017-03-05 2017-03-09 Discharged [facility] [id number] 06:54:00 10:58:00 Inpatient NCIHELLE 46 [place] - (obs) Patient s [facility] 2017-01-04 2017-01-05 Discharged [facility] [id number] 10:33:00 18:56:00 Inpatient 63 [place] s - (obs) Patient s [facility] Orders Doctor TATO 1.2.840.114 [id number] Univers 00:00:00 00:00:00 Only Unassigned, CRISTINA 350.1.13.10 ity of [place] [facility] 4.2.7.2.686 Juan J as [phone] [place] [address] Branch Results Test Description Test Time Test Comments Results Result Comments Source POCT GLUCOSE (AUTOMATED) 2021-01-04 21:40:06 Test Item Value Reference Range Interpretation Comme nts POCT GLU (test code = 4476734948) 102 mg/dL 70-110 Lab Interpretation (test code = 74301-3) [facility] (AUT[facility])2021-01-04 18:07:54 Test Item Value Reference Range Interpretation Comments POCT GLU (test code = 7875194881) 107 mg/dL 70-110 Lab Interpretation (test code = Normal 04693-1) [facility]ATED)2021-01-04 17:23:15 Test Item Value Reference Range Interpretation Comments POCT GLU (test code = 6371989934) 77 mg/dL 70-110 Lab Interpretation (test code = Normal 22929-3) [facility] GL[facility]SE [facility]ATED)2021-01-04 12:54:12 Test Item Value Reference Range Interpretation Comments POCT GLU (test code = 7898822616) 79 mg/dL 70-110 Lab Interpretation (test code = Normal 89985-6) [facility] CARE VENOUS BLOOD [id number] 12:48:07 Test Item Value Reference Range Interpretation Comments PH (test code = 7.32-7.42 [id number]) PCO2 JEANMARIE (test code = See_Comment [Auto mated message] [id number]) The system [employer] generated this result transmitted ref erence range: 41 - 51 mmHg. The reference r batsheva was not used to interpret this result as normal/abnor mal. PO2 JEANMARIE (test code = See_Comment L [Autom ated message] [id number]) The system [employer] generated this result transmitted ref erence range: 25 - 40 mmHg. The reference r batsheva was not used to interpret this result as normal/abnor mal. HCO3 JEANMARIE (test code = See_Comment [Auto mated message] [id number]) The system [employer] generated this result transmitted ref erence range: 24 - 28 mEq/L. The reference r batsheva was not used to interpret this result as normal/abnor mal. AC VBE(BEAKER) (test mEq/L code = [id number]) Lab Interpretation (test Abnormal code = 58970-2) [id number] 11:40:16 Test Item Value Reference Range Interpretation Comments NT-proBNP (test code 2270 pg/mL See_Comment H [Autom ated = [id number]) message] The system which generated this result transmitted reference range : <=125. The reference range was not used to interpret this result as normal/abnormal . DIANE (test code = DIANE) Biotin has been reported to cause a negative bias, interpret results relative to patient's use of biotin. Lab Interpretation Abnormal (test code = 78819-8) [facility] (53668[facility]2021-01-04 11:32:56 Test Item Value Reference Range Interpretation Comments NA (test code = 133 mmol/L 135-145 L 1940883464) K (test code = 4.0 mmol/L 3.5-5.0 5423418273) CL (test code = 104 mmol/L 98-108 4193794525) CO2 TOTAL (test code = 23 mmol/L 23-31 3406674949) AGAP (test code = 2-16 5208442581) BUN (test code = 16 mg/dL 7-23 9650611153) GLUCOSE (test code = 90 mg/dL 70-110 0890313954) CREATININE (test code = 1.03 mg/dL 0.60-1.25 5267714473) TOTAL BILI (test code = 0.7 mg/dL 0.1-1.8 8160903355) CALCIUM (test code = 7.8 mg/dL 8.6-10.6 L 7349929031) T PROTEIN (test code = 6.5 g/dL 6.3-8.2 5139404837) ALBUMIN (test code = 3.2 g/dL 3.5-5.0 L 6243168871) ALK PHOS (test code = 181 U/L 34-122 H 0079892549) ALTv (test code = 17 U/L 5-50 1742-6) AST(SGOT) (test code = 38 U/L 13-40 2184851033) eGFR (test code = mL/min/1.73m2 3074385358) DIANE (test code = DIANE) Association of Glomerular Filtration Rate (GFR) and Staging of Kidney Disease* + --+ --+ ------+| GFR (mL/min/1.73 m2) ?| With Kidney Damage ?| ?Without Kidney Damage+ --------+ --------+ +| ?>90 ?| ?Stage one ?| ? Normal ?+ ---+ ---+ -------+| ?60-89 ?| ?Stage two ?| ? Decreased GFR ? + --+ --+ ------+| ?30-59 ?| ?Stage three ?| ? Stage three ? + --+ --+ ------+| ?15-29 ?| ?Stage four ? | ? Stage four ?+ ---+ ---+ -------+| ?<15 (or dialysis) ? ?| ?Stage five ? | ? Stage five ?+ ---+ ---+ -------+ *Each stage assumes the associated GFR level has been in effect for at least three months. ?Stages 1 to 5, with or without kidney disease, indicate chronic kidney disease. Notes: Determination of stages one and two (with eGFR >59mL/min/1.73 m2) requires estimation of kidney damage for at least three months as defined by structural or functional abnormalities of the kidney, manifested by either:Pathological abnormalities or Markers of kidney damage (including abnormalities in the composition of the blood or urine or abnormalities in imaging tests). Lab Interpretation Abnormal (test code = 25162-3) [facility] WITH [id number] 11:18:32 Test Item Value Reference Range Interpretation Comments WBC (test code = See_Comment L [Automated 6690-2) message] The sy stem which generated this result transmitted reference range : 4.20 - 10.70 10*3/?L. The reference range was not used to interpret this result as normal/abnormal . RBC (test code = See_Comment L [Automated 789-8) message] The sy stem which generated this result transmitted reference range : 4.26 - 5.52 10*6/?L. The reference range was not used to interpret this result as normal/abnormal . HGB (test code = 9.7 g/dL 12.2-16.4 L 718-7) HCT (test code = 31.4 % 38.4-49.3 L 4544-3) MCV (test code = 88.0 fL 81.7-95.6 787-2) MCH (test code = 27.2 pg 26.1-32.7 785-6) MCHC (test code = 30.9 g/dL 31.2-35.0 L 786-4) RDW-SD (test code = 52.9 fL 38.5-51.6 H 26495-6) RDW-CV (test code = 16.2 % 12.1-15.4 H 788-0) PLT (test code = See_Comment [Automated 777-3) message] The sy stem which generated this result transmitted reference range : 150 - 328 10*3/ ?L. The reference r batsheva was not used to interpret this result as normal/abnormal . MPV (test code = 10.3 fL 9.8-13.0 34003-3) NRBC/100 WBC (test See_Comment [Automat ed code = 8017218336) message] The system which generated this result transmitted reference range : 0.0 - 10.0 /100 WBCs. The refer ence range was not u sed to interpret th is result as normal/abnormal . NRBC x10^3 (test code <0.01 See_Comment [Auto mated = 4383285538) message] The s ystem which generated this result transmitted reference range : 10*3/?L. The reference range was not used to interpret this result as normal/abnormal . GRAN MAT (NEUT) % 56.8 % (test code = 770-8) IMM GRAN % (test code 0.30 % = 1484232886) LYMPH % (test code = 22.3 % 736-9) MONO % (test code = 14.4 % 5905-5) EOS % (test code = 5.9 % 713-8) BASO % (test code = 0.3 % 706-2) GRAN MAT x10^3(ANC) 2.01 10*3/uL 1.99-6.95 (test code = 9087696485) IMM GRAN x10^3 (test <0.03 0.00-0.06 code = 1628550515) LYMPH x10^3 (test code 0.79 10*3/uL 1.09-3.23 L = 731-0) MONO x10^3 (test code 0.51 10*3/uL 0.36-1.02 = 742-7) EOS x10^3 (test code = 0.21 10*3/uL 0.06-0.53 711-2) BASO x10^3 (test code <0.03 0.01-0.09 = 704-7) Lab Interpretation Abnormal (test code = 03965-1) [facility]21-01-04 10:23:25 Test Item Value Reference Range Interpretation Comments POCT GLU (test code = 5708380258) 151 mg/dL 70-110 H Lab Interpretation (test code = Abnormal 94891-9) [facility]AUT[facility])2021-01-04 04:33:27 Test Item Value Reference Range Interpretation Comments POCT GLU (test code = 2048171227) 79 mg/dL 70-110 Lab Interpretation (test code = Normal 78723-6) [facility]SE (AUTOMATED)2021-01-04 04:33:27 Test Item Value Reference Range Interpretation Comments POCT GLU (test code = 2699102365) 75 mg/dL 70-110 Lab Interpretation (test code = Normal 81990-9) [facility] ONLY COVID [id number] 23:22:20COVID DMT InterpretationInterpretation/Recommendations:Molecular NAAT Tests for Active Infection with the SARS-CoV-2 Virus:The patient has currently tested negative for the SARS-CoV-2 virus that causesCOVID-19 illness. This most likely indicates that the patient does not have an active infection withthe SARS-CoV-2 virus. However, infection is not completely ruled out as the false negative rate for molecular NAAT testing using a nasopharyngeal sample can be up to 30%, mostly dependent on the timingof sample collection in relation to illness onset and any deficiencies in sampling techniques. If the patient has symptoms concerning for COVID-19 illness, a repeat NAAT test (PCR, Rapid ID Now, etc.) should be performed, at which time the SARS-CoV-2 virus - if present - may have reached a detectable viral load (usually peaking by the end of the first week of symptoms). Tests for IgM and/or IgG Antibodies to the SARS-CoV-2 Virus:Testing for IgM and IgG antibodies approximately 3 weeks after illness o nset will likely indicate if the patient has produced antibodies to the SARS-CoV-2 virus. However, some patients may take longer to develop detectable antibodies, while others infected with SARS-CoV-2 may never develop antibodies, particularly those who have had mild or asymptomatic illness. Of note, if the patient has been vaccinated earlier than 1-2 weeks prior to antibody testing, any positive SARS-CoV-2 IgG antibody result is likely due to vaccination. The specific duration and strength of immunity from SARS-CoV-2 IgG antibodies is highly variable between individuals and is dependent on a variety of factors, including infection vs. vaccination response, initial infection severity, the strengthof the patient's own immune system, and the variants to which the patient has been exposed. ? ------- Interpretation Result Comments:These interpretation comments are based upon all COVID-19 testing the patient has had at [facility], includingmolecular NAAT testing (more commonly known as PCR testing and Rapid ID Now testing) and antibody testing. It does not take into account any testing that a patient has had outside of the [facility] medical record. [facility] LABORATORY SERVICESCOVID HbazsodMEIL-KcC-3 Rapid ID NOW (no units) ? ? Date ? Value ? 01/01/2021 ? Not Detected ? ? ? 12/14/2020 ? Not Detected ? ? ? 09/23/2020 ? Not Detected ? ? ? 09/02/2020 ? Not Detected ? ? ? 08/02/2020 ? Not Detected ? ? ? 07/27/2020 ? Not Detected ? ? ? 07/16/2020 ? Not Detected ? ? ? 07/10/2020 ? Not Detected ? ? ? 05/29/2020 ? Not Detected ? ? ? 03/16/2020 ? Not Detected ? ? ? 02/03/2020 ? Not Detected ? ? ? 11/16/2019 ? Not Detected ? ? ? 09/17/2019 ? Not Detected? [facility]ORATORY SERVICES [facility]SE [facility]AUTOM[facility]2021-01-03 22:11:23 Test Item Value Reference Range Interpretation Comments POCT GLU (test code = 1098401217) 79 mg/dL 70-110 Lab Interpretation (test code = Normal 19460-7) [facility]AUT[facility])2021-01-03 16:59:27 Test Item Value Reference Range Interpretation Comments POCT GLU (test code = 2072338341) 115 mg/dL 70-110 H Lab Interpretation (test code = Abnormal 40204-4) [facility]AUT[facility])2021-01-03 12:38:13 Test Item Value Reference Range Interpretation Comments POCT GLU (test code = 9077093471) 65 mg/dL 70-110 L Lab Interpretation (test code = Abnormal 84109-8) [facility] [id number] 09:15:10 Test Item Value Reference Range Interpretation Comments NT-proBNP (test code 3650 pg/mL See_Comment H [Autom ated = 6287508055) message] The system which generated this result transmitted reference range : <=125. The reference range was not used to interpret this result as normal/abnormal . DIANE (test code = DIANE) Biotin has been reported to cause a negative bias, interpret results relative to patient's use of biotin. Lab Interpretation Abnormal (test code = 57919-4) [facility]. METABOLIC PANEL (04338)2021-01-03 09:06:29 Test Item Value Reference Range Interpretation Comments NA (test code = 138 mmol/L 135-145 1108680690) K (test code = 3.6 mmol/L 3.5-5.0 1768371415) CL (test code = 106 mmol/L 98-108 0264402437) CO2 TOTAL (test code = 28 mmol/L 23-31 4365838258) AGAP (test code = 2-16 4101642870) BUN (test code = 13 mg/dL 7-23 8472093272) GLUCOSE (test code = 97 mg/dL 70-110 5143916064) CREATININE (test code = 0.81 mg/dL 0.60-1.25 2987294787) TOTAL BILI (test code = 0.7 mg/dL 0.1-1.2 0133949529) CALCIUM (test code = 8.3 mg/dL 8.6-10.6 L 8110722926) T PROTEIN (test code = 6.3 g/dL 6.3-8.2 8551821496) ALBUMIN (test code = 3.1 g/dL 3.5-5.0 L 5126794435) ALK PHOS (test code = 206 U/L 34-122 H 5611897740) ALTv (test code = 22 U/L 5-50 1742-6) AST(SGOT) (test code = 30 U/L 13-40 4966972115) eGFR (test code = mL/min/1.73m2 1260680132) DIANE (test code = DIANE) Association of Glomerular Filtration Rate (GFR) and Staging of Kidney Disease* + --+ --+ ------+| GFR (mL/min/1.73 m2) ?| With Kidney Damage ?| ?Without Kidney Damage+ --------+ --------+ +| ?>90 ?| ?Stage one ?| ? Normal ?+ ---+ ---+ -------+| ?60-89 ?| ?Stage two ?| ? Decreased GFR ? + --+ --+ ------+| ?30-59 ?| ?Stage three ?| ? Stage three ? + --+ --+ ------+| ?15-29 ?| ?Stage four ? | ? Stage four ?+ ---+ ---+ -------+| ?<15 (or dialysis) ? ?| ?Stage five ? | ? Stage five ?+ ---+ ---+ -------+ *Each stage assumes the associated GFR level has been in effect for at least three months. ?Stages 1 to 5, with or without kidney disease, indicate chronic kidney disease. Notes: Determination of stages one and two (with eGFR >59mL/min/1.73 m2) requires estimation of kidney damage for at least three months as defined by structural or functional abnormalities of the kidney, manifested by either:Pathological abnormalities or Markers of kidney damage (including abnormalities in the composition of the blood or urine or abnormalities in imaging tests). Lab Interpretation Abnormal (test code = 01701-7) [facility]SE (AUTOMATED[facility]2021-01-03 02:57:41 Test Item Value Reference Range Interpretation Comments POCT GLU (test code = 0073048744) 103 mg/dL 70-110 Lab Interpretation (test code = Normal 70519-1) [facility]SE (AUTOMATED)2021-01-02 21:53:05 Test Item Value Reference Range Interpretation Comments POCT GLU (test code = 9462730777) 122 mg/dL 70-110 H Lab Interpretation (test code = Abnormal 55292-3) [facility]SE (AUTOMATED)2021-01-02 16:56:11 Test Item Value Reference Range Interpretation Comments POCT GLU (test code = 6350968566) 153 mg/dL 70-110 H Lab Interpretation (test code = Abnormal 17625-7) [facility] [id number] 16:27:16 Test Item Value Reference Interpretation Comments Range TROPONIN I (test 0.012 ng/mL See_Comment [Automated code = 9300534745) message] The system which generated this result transmitted reference range : <=0.034. The reference range was not used to interpret this result as normal/abnormal . DIANE (test code = Reference (Normal) DIANE) Range (defined by the 99th percentile reference limit): <= 0.034 ng/mL Note: Cardiac troponin begins to rise 3-4 hours after the onset of ischemia. Repeat in 4-6 hours if the sample was drawn within 3-4 hours of the onset of the symptom and found normal. Diagnosis of myocardial injury is made with acute changes in cTn concentrations with at least one serial sample above the 99th percentile upper reference limit (URL), taken together with the patient's clinical presentation. Biotin has been reported to cause a negative bias, interpret results relative to patient's use of biotin. Lab Interpretation Normal (test code = 90061-4) [facility] 1 [id number] 14:45:43Impression: 1. Stable diffuse interstitial opacities, likely representing interstitialedema. Slight improvement in bibasilar aeration.2. Bilateral pleural effusions, unchanged. RL: 2824 End of Report Exam: Chest (1 View), 01/02/2021 8:00 AM.Ordering Physician: MARTHA ROWE. History: CHF. Technique: One view of the chest. Comparison: 01/01/2021. Findings: Pulse generator overlies the left hemithorax, with electrode lead tipsprojecting overthe right atrium and ventricle. Median sternotomy changesare noted. Cardiac silhouette is moderatelyenlarged. There is nopneumothorax. There is blunting of the bilateral costophrenic sulci.Pulmonary vascular redistribution and diffuse interstitial opacities arenoted. Hazy bibasilar airspace opacitieshave slightly improved. Osseousstructures show degenerative changes. [facility], Radiant Results Inft User- 01/02/2021 9:46 AM CDT Exam: Chest (1 View), 01/02/2021 8:00 AM.Ordering Physician: MARTHA ROWE.History: CHF.Technique: One view of the chest.Comparison: 01/01/2021.Findings: Pulse generator overlies the left hemithorax, with electrode lead tipsprojecting over the right atrium and ventricle. Median sternotomy changesare noted. Cardiac silh ouette is moderately enlarged. There is nopneumothorax. There is blunting of the bilateral costophrenic sulci.Pulmonary vascular redistribution and diffuse interstitial opacities arenoted. Hazy bibasilar airspace opacities have slightly improved. Osseousstructures show degenerative changes.IMPRESSIONImpression: 1. Stable diffuse interstitial opacities, likely representing interstitialedema. Slight improvement in bibasilar aeration.2. Bilateral pleural effusions, unchanged.RL: 2824End of Report [facility] GLUCOSE (AUTOMATED) 2021-01-02 12:53:51 Test Item Value Reference Range Interpretation Comments POCT GLU (test code = 4166893827) 150 mg/dL 70-110 H Lab Interpretation (test code = Abnormal 83179-3) [facility] (AUT[facility]2021-01-02 11:40:40 Test Item Value Reference Range Interpretation Comments POCT GLU (test code = 2327091816) 103 mg/dL 70-110 Lab Interpretation (test code = Normal 67321-4) [facility] [id number] 09:31:29 Test Item Value Reference Interpretation Comments Range TROPONIN I (test 0.028 ng/mL See_Comment [Automated code = 2378059877) message] The system which generated this result transmitted reference range : <=0.034. The reference range was not used to interpret this result as normal/abnormal . DIANE (test code = Reference (Normal) DIANE) Range (defined by the 99th percentile reference limit): <= 0.034 ng/mL Note: Cardiac troponin begins to rise 3-4 hours after the onset of ischemia. Repeat in 4-6 hours if the sample was drawn within 3-4 hours of the onset of the symptom and found normal. Diagnosis of myocardial injury is made with acute changes in cTn concentrations with at least one serial sample above the 99th percentile upper reference limit (URL), taken together with the patient's clinical presentation. Biotin has been reported to cause a negative bias, interpret results relative to patient's use of biotin. Lab Interpretation Normal (test code = 02598-6) [facility] [id number] 09:31:09 Test Item Value Reference Interpretation Comments Range TROPONIN I (test 0.029 ng/mL See_Comment [Automated code = 8889772520) message] The system which generated this result transmitted reference range : <=0.034. The reference range was not used to interpret this result as normal/abnormal . DIANE (test code = Reference (Normal) DIANE) Range (defined by the 99th percentile reference limit): <= 0.034 ng/mL Note: Cardiac troponin begins to rise 3-4 hours after the onset of ischemia. Repeat in 4-6 hours if the sample was drawn within 3-4 hours of the onset of the symptom and found normal. Diagnosis of myocardial injury is made with acute changes in cTn concentrations with at least one serial sample above the 99th percentile upper reference limit (URL), taken together with the patient's clinical presentation. Biotin has been reported to cause a negative bias, interpret results relative to patient's use of biotin. Lab Interpretation Normal (test code = 95257-3) [facility] [id number] 09:27:51 Test Item Value Reference Range Interpretation Comments NT-proBNP (test code 6170 pg/mL See_Comment H [Autom ated = 2856021084) message] The system which generated this result transmitted reference range : <=125. The reference range was not used to interpret this result as normal/abnormal . DIANE (test code = DIANE) Biotin has been reported to cause a negative bias, interpret results relative to patient's use of biotin. Lab Interpretation Abnormal (test code = 33574-5) [facility] (55182)2021-01-02 09:23:11 Test Item Value Reference Range Interpretation Comments NA (test code = 138 mmol/L 135-145 8250334565) K (test code = 3.8 mmol/L 3.5-5.0 0678511736) CL (test code = 108 mmol/L 98-108 5945893323) CO2 TOTAL (test code = 25 mmol/L 23-31 5057656035) AGAP (test code = 2-16 9300068357) BUN (test code = 11 mg/dL 7-23 0516671620) GLUCOSE (test code = 130 mg/dL 70-110 H 3849285016) CREATININE (test code = 0.67 mg/dL 0.60-1.25 0789623661) TOTAL BILI (test code = 1.0 mg/dL 0.1-1.4 8318735087) CALCIUM (test code = 8.6 mg/dL 8.6-10.6 5750508847) T PROTEIN (test code = 6.3 g/dL 6.3-8.2 2334404404) ALBUMIN (test code = 2.9 g/dL 3.5-5.0 L 3124980606) ALK PHOS (test code = 244 U/L 34-122 H 4551336275) ALTv (test code = 21 U/L 5-50 1742-6) AST(SGOT) (test code = 57 U/L 13-40 H 1859212306) eGFR (test code = mL/min/1.73m2 2661189736) DIANE (test code = DIANE) Association of Glomerular Filtration Rate (GFR) and Staging of Kidney Disease* + --+ --+ ------+| GFR (mL/min/1.73 m2) ?| With Kidney Damage ?| ?Without Kidney Damage+ --------+ --------+ +| ?>90 ?| ?Stage one ?| ? Normal ?+ ---+ ---+ -------+| ?60-89 ?| ?Stage two ?| ? Decreased GFR ? + --+ --+ ------+| ?30-59 ?| ?Stage three ?| ? Stage three ? + --+ --+ ------+| ?15-29 ?| ?Stage four ? | ? Stage four ?+ ---+ ---+ -------+| ?<15 (or dialysis) ? ?| ?Stage five ? | ? Stage five ?+ ---+ ---+ -------+ *Each stage assumes the associated GFR level has been in effect for at least three months. ?Stages 1 to 5, with or without kidney disease, indicate chronic kidney disease. Notes: Determination of stages one and two (with eGFR >59mL/min/1.73 m2) requires estimation of kidney damage for at least three months as defined by structural or functional abnormalities of the kidney, manifested by either:Pathological abnormalities or Markers of kidney damage (including abnormalities in the composition of the blood or urine or abnormalities in imaging tests). Lab Interpretation Abnormal (test code = 05249-5) [facility] Test Item Value Reference Range Interpretation Comments MAGNESIUM (test code = 3991241539) 1.6 mg/dL 1.7-2.4 L Lab Interpretation (test code = Abnormal 44486-9) [facility]20[facility] 09:22:51 Test Item Value Reference Range Interpretation Comments PHOSPHORUS (test code = 2822682444) 4.8 mg/dL 2.5-5.0 Lab Interpretation (test code = Normal 10276-2) [facility] [id number] 09:10:17 Test Item Value Reference Range Interpretation Comments PH (test code = 7.32-7.42 8834934956) PCO2 JEANMARIE (test code = See_Comment [Auto mated message] 6595389007) The system [employer] generated this result transmitted ref erence range: 41 - 51 mmHg. The reference r batsheva was not used to interpret this result as normal/abnor mal. PO2 JEANMARIE (test code = See_Comment HH [Autom ated message] 0523328747) The system [employer] generated this result transmitted ref erence range: 25 - 40 mmHg. The reference r batsheva was not used to interpret this result as normal/abnor mal. HCO3 JEANMARIE (test code = See_Comment L [Auto mated message] 5400484276) The system [employer] generated this result transmitted ref erence range: 24 - 28 mEq/L. The reference r batsheva was not used to interpret this result as normal/abnor mal. AC VBE(BEAKER) (test mEq/L code = 4343271177) Lab Interpretation (test Abnormal code = 24295-6) [facility] CenterCBC WITH [id number] 09:01:07 Test Item Value Reference Range Interpretation Comments WBC (test code = See_Comment [Automated 6690-2) message] The sy stem which generated this result transmitted reference range : 4.20 - 10.70 10*3/?L. The reference range was not used to interpret this result as normal/abnormal . RBC (test code = See_Comment L [Automated 789-8) message] The sy stem which generated this result transmitted reference range : 4.26 - 5.52 10*6/?L. The reference range was not used to interpret this result as normal/abnormal . HGB (test code = 10.7 g/dL 12.2-16.4 L 718-7) HCT (test code = 32.7 % 38.4-49.3 L 4544-3) MCV (test code = 84.3 fL 81.7-95.6 787-2) MCH (test code = 27.6 pg 26.1-32.7 785-6) MCHC (test code = 32.7 g/dL 31.2-35.0 786-4) RDW-SD (test code = 49.2 fL 38.5-51.6 71667-9) RDW-CV (test code = 15.9 % 12.1-15.4 H 788-0) PLT (test code = See_Comment [Automated 777-3) message] The sy stem which generated this result transmitted reference range : 150 - 328 10*3/ ?L. The reference r batsheva was not used to interpret this result as normal/abnormal . MPV (test code = 9.5 fL 9.8-13.0 L 42912-7) NRBC/100 WBC (test See_Comment [Automat ed code = 8989304285) message] The system which generated this result transmitted reference range : 0.0 - 10.0 /100 WBCs. The refer ence range was not u sed to interpret th is result as normal/abnormal . NRBC x10^3 (test code <0.01 See_Comment [Auto mated = 3193429892) message] The s ystem which generated this result transmitted reference range : 10*3/?L. The reference range was not used to interpret this result as normal/abnormal . GRAN MAT (NEUT) % 65.8 % (test code = 770-8) IMM GRAN % (test code 0.40 % = 4594945107) LYMPH % (test code = 21.0 % 736-9) MONO % (test code = 9.0 % 5905-5) EOS % (test code = 3.4 % 713-8) BASO % (test code = 0.4 % 706-2) GRAN MAT x10^3(ANC) 3.44 10*3/uL 1.99-6.95 (test code = 5255477285) IMM GRAN x10^3 (test <0.03 0.00-0.06 code = 6954039000) LYMPH x10^3 (test code 1.10 10*3/uL 1.09-3.23 = 731-0) MONO x10^3 (test code 0.47 10*3/uL 0.36-1.02 = 742-7) EOS x10^3 (test code = 0.18 10*3/uL 0.06-0.53 711-2) BASO x10^3 (test code <0.03 0.01-0.09 = 704-7) Lab Interpretation Abnormal (test code = 86201-8) [facility], [id number] 08:52:33 Test Item Value Reference Range Interpretation Comments VIT D 25OH (test code = <13 25-80 L 40431-7) DIANE (test code = DIANE) Deficiency: <20 ng/mLInsufficiency: 20-24 ng/mLOptimal: 25-80 ng/mL Lab Interpretation (test Abnormal code = 58064-1) [facility] B12, [id number] 07:27:40 Test Item Value Reference Range Interpretation Comments VIT B12 (test code = 275 pg/mL 240-930 [id number]) DIANE (test code = DIANE) Biotin has been reported to cause a positive bias, interpret results relative to patient's use of biotin. Lab Interpretation (test Normal code = 62449-0) [facility] CenterTROP[facility] [id number] 02:35:43 Test Item Value Reference Interpretation Comments Range TROPONIN I (test 0.023 ng/mL See_Comment [Automated code = 9044115505) message] The system which generated this result transmitted reference range : <=0.034. The reference range was not used to interpret this result as normal/abnormal . DIANE (test code = Reference (Normal) DIANE) Range (defined by the 99th percentile reference limit): <= 0.034 ng/mL Note: Cardiac troponin begins to rise 3-4 hours after the onset of ischemia. Repeat in 4-6 hours if the sample was drawn within 3-4 hours of the onset of the symptom and found normal. Diagnosis of myocardial injury is made with acute changes in cTn concentrations with at least one serial sample above the 99th percentile upper reference limit (URL), taken together with the patient's clinical presentation. Biotin has been reported to cause a negative bias, interpret results relative to patient's use of biotin. Lab Interpretation Normal (test code = 81582-3) [facility] CenterTHYROID STIMULATING [id number] 02:10:37 Test Item Value Reference Range Interpretation Comments TSH (test code = See_Comment [Automated message] [id number]) The system [employer] generated this result transmitted ref erence range: 0.45 - 4 .70 mIU/L. The refe rence range was not u sed to interpret this result as normal/abnor mal. Lab Interpretation (test Normal code = 30767-2) [facility] CenterGLYCOSYLATED HEMOGLOBIN (A1C)2021-01-02 01:44:50 Test Item Value Reference Range Interpretation Comments HGB A1C (test code = 7.1 % 4.0-5.7 H 4548-4) DIANE (test code = DIANE) Reference RangesNormal: <5.7%Prediabetes: 5.7 - 6.4%Diabetes: > 6.5% Lab Interpretation (test Abnormal code = 89453-1) [facility] CenterLIPID PANEL (92546)(TOTAL CHOLESTEROL, TRIGLYCERIDES, HDL)2021-01-02 01:40:33 Test Item Value Reference Range Interpretation Comments CHOL (test code = 192 mg/dL 120-200 6813265949) HDL (test code = 32 mg/dL >40 L 5494071093) HDLC RATIO (test code = See_Comment H [Au tomated message] 3820717578) The system [employer] generated this result transmit ludmila reference range : <=5.0. The refe rence range was not u sed to interpret th is result as normal/abnormal . TRIG (test code = 114 mg/dL 30-170 6208035323) LDL CHOL (test code = 137 mg/dL See_Comment [Auto mated message] 44390-7) The system [employer] generated this result transmit ludmila reference range : <=160. The refe rence range was not u sed to interpret th is result as normal/abnormal . VLDL (test code = 23 mg/dL 5-60 7584102824) Lab Interpretation (test Abnormal code = 79662-4) [facility] CenterMAGNESIUM2021-08-14 01:40:17 Test Item Value Reference Range Interpretation Comments MAGNESIUM (test code = 9499156536) 1.8 mg/dL 1.7-2.4 Lab Interpretation (test code = Normal 37767-6) [facility] CenterPHOSPHORUS2021-08-14 01:39:56 Test Item Value Reference Range Interpretation Comments PHOSPHORUS (test code = 5483528758) 4.2 mg/dL 2.5-5.0 Lab Interpretation (test code = Normal 34239-9) [facility] CenterURIC [id number] 01:39:36 Test Item Value Reference Range Interpretation Comments URIC ACID (test code = 0211013486) 7.3 mg/dL 3.6-8.0 Lab Interpretation (test code = Normal 42701-2) [facility] CenterCT CHEST PULMONARY [id number] 22:26:28Impression: Evaluation for pulmonary embolism is somewhat limited by respiratorymotion. Within this limitation, no evidence for acute pulmonary embolism. Moderate to large layering bilateral pleural effusions with underlyingcompressive atelectasis. Mild bilateral interstitial thickening and bilateral parenchymalgroundglass attenuation, which may be related to pulmonary edema. Atypicalinfectious process could have a similar appearance. Changes of prior median sternotomy. Advanced coronary arterycalcifications. RL: 111 Examination: CT angiography of the chest Clinical Indication: PE suspected, low pretest probability Ordering Physician: SIVA CAN Comparison: Chest one view from earlier the same day Technique: Axial CT of the chest obtained after the administration ofintravenous contrast material, according to pulmonary embolism protocol.Sagittal and coronal and axial MIP reformatted images provided. Theexamination was performed according to ALARA principles. Findings: Visualized thyroid is unremarkable. Left chest wall pacemakernoted. The heart is normal in size. No pericardial effusion. Advancedcoronary artery calcifications. Median sternotomy wires. No discretelymphadenopathy in the chest. Intrathoracic aorta and main pulmonary arteryappear normal course and caliber. Mild atherosclerotic calcifications ofthe intrathoracic aorta. There is a proximal left subclavian artery stent.Evaluation for pulmonary embolism is limited by respiratory motion. Noevidence for acute pulmonary embolism. Moderate to large layering bilatera lpleural effusions with underlying compressive atelectasis. Mild bilateralinterstitial prominence and mild groundglass attenuation within both lungs.No pneumothorax. The central airways are patent. Limited visualization ofthe upper abdomen demonstrates no definite acute abnormalities. Priorcholecystectomy. Degenerative changes in the thoracic spine. No acute bonyabnormality. [facility], Radiant Results Inft User - 01/01/2021 5:27 PM CDT Examination: CT angiography of the chestClinical Indication: PE suspected, low pretest probabilityOrdering Physician: SIVA CANComparison: Chest one view from earlier the same dayTechnique: Axial CT of thechest obtained after the administration ofintravenous contrast material, according to pulmonary embolism protocol.Sagittal and coronal and axial MIP reformatted images provided. Theexamination was performed according to ALARA principles.Findings: Visualized thyroid is unremarkable. Left chest wall pacemakernoted. The heart is normal in size. No pericardial effusion. Advancedcoronary artery calcifications. Median sternotomy wires. No discretelymphadenopathy in the chest. Intrathoracic aorta and main pulmonary arteryappear normal course and caliber. Mild atherosclerotic calcifications ofthe intrathoracic aorta. There is a proximal left subclavian artery stent.Evaluation for pulmonary embolism is limited by respiratory motion. Noevidence for acute pulmonary embolism. Moderate to large layering bilate ralpleural effusions with underlying compressive atelectasis. Mild bilateralinterstitial prominence and mild groundglass attenuation within both lungs.No pneumothorax. The central airways are patent. Limited visualization ofthe upper abdomen demonstrates no definite acute abnormalities. Priorcholecystectomy. Degenerative changes in the thoracic spine. No acute bonyabnormality.IMPRESSIONImpression:Evaluation for pulmonary embolism is somewhat limited by respiratorymotion. Within this limitation, no evidence for acute pulmonary embolism.Moderate to large layering bilateral pleural effusions with underlyingcompressive atelectasis.Mild bilateral interstitial thickening and bilateral parenchymalgroundglass attenuation, which may be related to pulmonary edema. Atypicalinfectious process could have a similar appearance.Changes of prior median sternotomy. Advanced coronary arterycalcifications.RL: 111 [facility] CenterXR CHEST 1 [id number] 21:11:53Edema type pattern. Increasing small effusions. RL: 6200 RING PHYSICIAN:SIVA CAN CLINICAL HISTORY:chest pain COMPARISON:09/26/2020 TECHNIQUE:Portable Chest performed at 01/01/2021 2:30 PM. Technical Quality: Adequate FINDINGS:Median s ternotomy wires. Bilateral effusions. There is interstitialthickening as well as prominence and indistinctness of the pulmonaryvasculature consistent with interstitial pulmonary edema. No pneumothorax.Heart and mediastinal structures are unchanged. [facility], Radiant Results Inft User - 01/01/2021 4:12 PM CDT ORDERING PHYSICIAN:SIVA CANCLINICAL HISTORY:chest pain COMPARISON:09/26/2020TECHNIQUE:Portable Chest performed at 01/01/2021 2:30 PM. Technical Quality: AdequateFINDINGS:Median sternotomy wires. Bilateral effusions. There is interstitialthickening as well as prominence and indistinctness of the pulmonaryvasculature consistent with interstitial pulmonary edema. No pneumothorax. Heart and mediastinal structures are unchanged.IMPRESSIONEdema type pattern. Increasing small effusions.RL: [address] [facility].2021-01-01 20:42:09 Test Item Value Reference Range Interpretation Comments PH (test code = 2) 7.35-7.45 H PCO2 (test code = See_Comment L [Automat ed message] 9222502428) The system [employer] generated this result transmitted ref erence range: 35 - 45 mmHg. The reference r batsheva was not used to interpret this result as normal/abnor mal. PO2 (test code = See_Comment [Automated message] 4084171448) The system [employer] generated this result transmitted ref erence range: 80 - 100 mmHg. The reference r batsheva was not used to interpret this result as normal/abnor mal. HCO3 (test code = See_Comment L [Automate d message] 5914252059) The system [employer] generated this result transmitted ref erence range: 22 - 26 mEq/L. The reference r batsheva was not used to interpret this result as normal/abnor mal. BE (test code = See_Comment [Automated message] 3075208135) The system [employer] generated this result transmitted ref erence range: -3.0 - 3 .0 mEq/L. The refe rence range was not u sed to interpret this result as normal/abnor mal. Lab Interpretation (test Abnormal code = 06499-7) [facility] CenterTROPONIN [id number] 20:22:59 Test Item Value Reference Interpretation Comments Range TROPONIN I (test 0.018 ng/mL See_Comment [Automated code = 1630662339) message] The system which generated this result transmitted reference range : <=0.034. The reference range was not used to interpret this result as normal/abnormal . DIANE (test code = Reference (Normal) DIANE) Range (defined by the 99th percentile reference limit): <= 0.034 ng/mL Note: Cardiac troponin begins to rise 3-4 hours after the onset of ischemia. Repeat in 4-6 hours if the sample was drawn within 3-4 hours of the onset of the symptom and found normal. Diagnosis of myocardial injury is made with acute changes in cTn concentrations with at least one serial sample above the 99th percentile upper reference limit (URL), taken together with the patient's clinical presentation. Biotin has been reported to cause a negative bias, interpret results relative to patient's use of biotin. Lab Interpretation Normal (test code = 27777-0) [facility] CenterN-TERMINAL [id number] 20:19:41 Test Item Value Reference Range Interpretation Comments NT-proBNP (test code 5610 pg/mL See_Comment H [Autom ated = 8605110636) message] The system which generated this result transmitted reference range : <=125. The reference range was not used to interpret this result as normal/abnormal . DIANE (test code = DIANE) Biotin has been reported to cause a negative bias, interpret results relative to patient's use of biotin. Lab Interpretation Abnormal (test code = 40947-3) [facility] CenterACTIVATED PARTIAL THRMPLAS [id number] 20:14:36 Test Item Value Reference Range Interpretation Comments APTT Patient (test See_Comment [Automat ed code = 3173-2) message] The system which generated this result transmitted reference range : 23 - 38 Seconds . The reference range was not used to interpr et this result as normal/abnormal . DIANE (test code = DIANE) The [facility] patient population mean normal value for aPTT is 30 seconds. Lab Interpretation Normal (test code = 59228-2) [facility] CenterPROTHROMBIN TIME / [id number] 20:12:39 Test Item Value Reference Range Interpretation Comments PROTIME PATIENT (test See_Comment [Auto mated message] code = 5964-2) The system wh ich generated this result transmitted ref erence range: 12.0 - 1 4.7 Seconds. The re ference range was not u sed to interpret this result as normal/abnor mal. INR (test code = 6301-6) Nor mal INR <1.1; Warfarin Therap eutic range 2.0 to 3. 0 or 2.5 to 3.5, dep ending upon the indica tions. Lab Interpretation (test Normal code = 68155-0) [facility] CenterCOMP. METABOLIC PANEL (20320)2021-01-01 20:10:58 Test Item Value Reference Range Interpretation Comments NA (test code = 140 mmol/L 135-145 7716713215) K (test code = 3.9 mmol/L 3.5-5.0 2716916070) CL (test code = 110 mmol/L 98-108 H 9153285240) CO2 TOTAL (test code = 22 mmol/L 23-31 L 2050479945) AGAP (test code = 2-16 8592396344) BUN (test code = 10 mg/dL 7-23 5273021781) GLUCOSE (test code = 108 mg/dL 70-110 6816904429) CREATININE (test code = 0.62 mg/dL 0.60-1.25 9621311504) TOTAL BILI (test code = 0.8 mg/dL 0.1-1.3 8464214001) CALCIUM (test code = 9.2 mg/dL 8.6-10.6 8918803816) T PROTEIN (test code = 7.4 g/dL 6.3-8.2 0507686501) ALBUMIN (test code = 3.5 g/dL 3.5-5.0 9276806046) ALK PHOS (test code = 178 U/L 34-122 H 2700668650) ALTv (test code = 14 U/L 5-50 2-6) AST(SGOT) (test code = 21 U/L 13-40 4438198005) eGFR (test code = mL/min/1.73m2 2485755012) DIANE (test code = DIANE) Association of Glomerular Filtration Rate (GFR) and Staging of Kidney Disease* + --+ --+ ------+| GFR (mL/min/1.73 m2) ?| With Kidney Damage ?| ?Without Kidney Damage+ --------+ --------+ +| ?>90 ?| ?Stage one ?| ? Normal ?+ ---+ ---+ -------+| ?60-89 ?| ?Stage two ?| ? Decreased GFR ? + --+ --+ ------+| ?30-59 ?| ?Stage three ?| ? Stage three ? + --+ --+ ------+| ?15-29 ?| ?Stage four ? | ? Stage four ?+ ---+ ---+ -------+| ?<15 (or dialysis) ? ?| ?Stage five ? | ? Stage five ?+ ---+ ---+ -------+ *Each stage assumes the associated GFR level has been in effect for at least three months. ?Stages 1 to 5, with or without kidney disease, indicate chronic kidney disease. Notes: Determination of stages one and two (with eGFR >59mL/min/1.73 m2) requires estimation of kidney damage for at least three months as defined by structural or functional abnormalities of the kidney, manifested by either:Pathological abnormalities or Markers of kidney damage (including abnormalities in the composition of the blood or urine or abnormalities in imaging tests). Lab Interpretation Abnormal (test code = 68241-6) [facility] CenterCOVID-19 (ID NOW RAPID TESTING)2021-01-01 20:03:58 Test Item Value Reference Range Interpretation Comments SARS-CoV-2 Rapid ID NOW Not Detected Not Detected (test code = 08500-6) DIANE (test code = DIANE) ID NOW COVID-19 Assay is an isothermal nucleic acid amplification test intended for the qualitative detection of nucleic acid from SARS-CoV-2 viral RNA in nasopharyngeal (STRAIGHTENING MACHINE OPERATOR) specimens. It is used under Emergency Use Authorization (EUA) by FDA. The limit of detection (LOD) of the assay is 125 Genome Equivalents/mL. A positive result is indicative of the presence of SARS-CoV-2 RNA. ?Clinical correlation with patient history and other diagnostic [...] for repeat patient testing if clinically indicated. Lab Interpretation Normal (test code = 60175-7) [facility] WITH [id number] 19:49:17 Test Item Value Reference Range Interpretation Comments WBC (test code = See_Comment [Automated 5764-2) message] The sy stem which generated this result transmitted reference range : 4.20 - 10.70 10*3/?L. The reference range was not used to interpret this result as normal/abnormal . RBC (test code = See_Comment [Automated 759-8) message] The sy stem which generated this result transmitted reference range : 4.26 - 5.52 10*6/?L. The reference range was not used to interpret this result as normal/abnormal . HGB (test code = 11.9 g/dL 12.2-16.4 L 718-7) HCT (test code = 35.8 % 38.4-49.3 L 4544-3) MCV (test code = 83.1 fL 81.7-95.6 787-2) MCH (test code = 27.6 pg 26.1-32.7 785-6) MCHC (test code = 33.2 g/dL 31.2-35.0 786-4) RDW-SD (test code = 48.1 fL 38.5-51.6 75753-9) RDW-CV (test code = 15.9 % 12.1-15.4 H 788-0) PLT (test code = See_Comment [Automated 577-3) message] The sy stem which generated this result transmitted reference range : 150 - 328 10*3/ ?L. The reference r batsheva was not used to interpret this result as normal/abnormal . MPV (test code = 9.3 fL 9.8-13.0 L 74226-7) NRBC/100 WBC (test See_Comment [Automat ed code = 4362502957) message] The system which generated this result transmitted reference range : 0.0 - 10.0 /100 WBCs. The refer ence range was not u sed to interpret th is result as normal/abnormal . NRBC x10^3 (test code <0.01 See_Comment [Auto mated = 3275892349) message] The s ystem which generated this result transmitted reference range : 10*3/?L. The reference range was not used to interpret this result as normal/abnormal . GRAN MAT (NEUT) % 65.0 % (test code = 770-8) IMM GRAN % (test code 0.30 % = 0304671030) LYMPH % (test code = 21.7 % 736-9) MONO % (test code = 8.8 % 5905-5) EOS % (test code = 3.6 % 713-8) BASO % (test code = 0.6 % 706-2) GRAN MAT x10^3(ANC) 4.33 10*3/uL 1.99-6.95 (test code = 1409867382) IMM GRAN x10^3 (test <0.03 0.00-0.06 code = 9806530737) LYMPH x10^3 (test code 1.45 10*3/uL 1.09-3.23 = 731-0) MONO x10^3 (test code 0.59 10*3/uL 0.36-1.02 = 742-7) EOS x10^3 (test code = 0.24 10*3/uL 0.06-0.53 711-2) BASO x10^3 (test code 0.04 10*3/uL 0.01-0.09 = 704-7) Lab Interpretation Abnormal (test code = 00386-5) [facility] CenterPOSC GLUCOSE (AUTOMATED)2021-01-01 19:46:14 Test Item Value Reference Range Interpretation Comments POCT GLU (test code = 1642621544) 111 mg/dL 70-110 H Lab Interpretation (test code = Abnormal 24475-1) [facility] GLUCOSE (AUTOMATED)2020-12-16 21:18:57 Test Item Value Reference Range Interpretation Comments POCT GLU (test code = 7288903322) 68 mg/dL 70-110 L Lab Interpretation (test code = Abnormal 16685-3) [facility] GLUCOSE (AUTOMATED)2020-12-16 17:06:02 Test Item Value Reference Range Interpretation Comments POCT GLU (test code = 9484900532) 110 mg/dL 70-110 Lab Interpretation (test code = Normal 11839-4) [facility] CenterN-TERMINAL [id number] 13:47:58 Test Item Value Reference Range Interpretation Comments NT-proBNP (test code 3550 pg/mL See_Comment H [Autom ated = 8467320488) message] The system which generated this result transmitted reference range : <=125. The reference range was not used to interpret this result as normal/abnormal . DIANE (test code = DIANE) Biotin has been reported to cause a negative bias, interpret results relative to patient's use of biotin. Lab Interpretation Abnormal (test code = 71283-3) [facility] GLUCOSE (AUTOMATED)2020-12-16 12:53:54 Test Item Value Reference Range Interpretation Comments POCT GLU (test code = 5149095995) 91 mg/dL 70-110 Lab Interpretation (test code = Normal 32815-9) [facility] Metabolic Panel (NA, K, CL, CO2, GLUCOSE, BUN, CREATININE, CA)2020-12-16 10:19:49 Test Item Value Reference Range Interpretation Comments NA (test code = 137 mmol/L 135-145 0026657630) K (test code = 3.9 mmol/L 3.5-5.0 4202073236) CL (test code = 107 mmol/L 98-108 3927458652) CO2 TOTAL (test code = 22 mmol/L 23-31 L 8692057573) AGAP (test code = 2-16 2537183928) BUN (test code = 18 mg/dL 7-23 5703362892) GLUCOSE (test code = 89 mg/dL 70-110 6978177237) CREATININE (test code = 0.70 mg/dL 0.60-1.25 9502843395) CALCIUM (test code = 8.7 mg/dL 8.6-10.6 7643524763) eGFR (test code = mL/min/1.73m2 7902254871) DIANE (test code = DIANE) Association of Glomerular Filtration Rate (GFR) and Staging of Kidney Disease* + --+ --+ ------+| GFR (mL/min/1.73 m2) ?| With Kidney Damage ?| ?Without Kidney Damage+ --------+ --------+ +| ?>90 ?| ?Stage one ?| ? Normal ?+ ---+ ---+ -------+| ?60-89 ?| ?Stage two ?| ? Decreased GFR ? + --+ --+ ------+| ?30-59 ?| ?Stage three ?| ? Stage three ? + --+ --+ ------+| ?15-29 ?| ?Stage four ? | ? Stage four ?+ ---+ ---+ -------+| ?<15 (or dialysis) ? ?| ?Stage five ? | ? Stage five ?+ ---+ ---+ -------+ *Each stage assumes the associated GFR level has been in effect for at least three months. ?Stages 1 to 5, with or without kidney disease, indicate chronic kidney disease. Notes: Determination of stages one and two (with eGFR >59mL/min/1.73 m2) requires estimation of kidney damage for at least three months as defined by structural or functional abnormalities of the kidney, manifested by either:Pathological abnormalities or Markers of kidney damage (including abnormalities in the composition of the blood or urine or abnormalities in imaging tests). Lab Interpretation Abnormal (test code = 22693-3) [facility] CenterMagnesium [id number] 06:19:17 Test Item Value Reference Range Interpretation Comments MAGNESIUM (test code = 0289455873) 1.7 mg/dL 1.7-2.4 Lab Interpretation (test code = Normal 65988-1) [facility] CenterPOCT GLUCOSE (AUTOMATED)2020-12-16 00:45:57 Test Item Value Reference Range Interpretation Comments POCT GLU (test code = 7928603277) 134 mg/dL 70-110 H Lab Interpretation (test code = Abnormal 83659-4) [facility] CenterGLYCOSYLATED HEMOGLOBIN (A1C)2020-12-15 22:14:19 Test Item Value Reference Range Interpretation Comments HGB A1C (test code = 7.0 % 4.0-5.7 H 4548-4) DIANE (test code = DIANE) Reference RangesNormal: <5.7%Prediabetes: 5.7 - 6.4%Diabetes: > 6.5% Lab Interpretation (test Abnormal code = 56382-7) [facility] CenterPOCT GLUCOSE (AUT[facility]ATED)2020-12-15 21:43:05 Test Item Value Reference Range Interpretation Comments POCT GLU (test code = 7552669086) 100 mg/dL 70-110 Lab Interpretation (test code = Normal 03042-4) [facility] CenterGlycosylated Hemoglobin (A1C)2020-12-15 20:10:30 Test Item Value Reference Range Interpretation Comments HGB A1C (test code = 7.0 % 4.0-5.7 H 4548-4) DIANE (test code = DIANE) Reference RangesNormal: <5.7%Prediabetes: 5.7 - 6.4%Diabetes: > 6.5% Lab Interpretation (test Abnormal code = 56066-5) [facility] CenterLAB ONLY COVID [id number] 19:24:48COVID DMT InterpretationInterpretation/Recommendations:Molecular NAAT Tests for Active Infection with the SARS-CoV-2 Virus:The patient has currently tested negative for the SARS-CoV-2 virus that causesCOVID-19 illness. This most likely indicates that the patient does not have an active infection withthe SARS-CoV-2 virus. However, infection is not completely ruled out as the false negative rate for molecular NAAT testing using a nasopharyngeal sample can be up to 30%, mostly dependent on the timingof sample collection in relation to illness onset and any deficiencies in sampling techniques. If the patient has symptoms concerning for COVID-19 illness, a repeat NAAT test (PCR, Rapid ID Now, etc.) should be performed, at which time the SARS-CoV-2 virus - if present - may have reached a detectable viral load (usually peaking by the end of the first week of symptoms). Tests for IgM and/or IgG Antibodies to the SARS-CoV-2 Virus:Testing for IgM and IgG antibodies approximately 3 weeks after illness o nset will likely indicate if the patient has produced antibodies to the SARS-CoV-2 virus. However, some patients may take longer to develop detectable antibodies, while others infected with SARS-CoV-2 may never develop antibodies, particularly those who have had mild or asymptomatic illness. Of note, if the patient has been vaccinated earlier than 1-2 weeks prior to antibody testing, any positive SARS-CoV-2 IgG antibody result is likely due to vaccination. The specific duration and strength of immunity from SARS-CoV-2 IgG antibodies is highly variable between individuals and is dependent on a variety of factors, including infection vs. vaccination response, initial infection severity, the strengthof the patient's own immune system, and the variants to which the patient has been exposed. ? ------- Interpretation Result Comments:These interpretation comments are based upon all COVID-19 testing the patient has had at [facility], includingmolecular NAAT testing (more commonly known as PCR testing and Rapid ID Now testing) and antibody testing. It does not take into account any testing that a patient has had outside of the [facility] medical record. [facility] LABORATORY SERVICESCOVID UhspnwhQCBL-PrC-3 Rapid ID NOW (no units) ? ? Date ? Value ? 12/14/2020 ? Not Detected ? ? ? 09/23/2020 ? Not Detected ? ? ? 09/02/2020 ? Not Detected ? ? ? 08/02/2020 ? Not Detected ? ? ? 07/27/2020 ? Not Detected ? ? ? 07/16/2020 ? Not Detected ? ? ? 07/10/2020 ? Not Detected ? ? ? 05/29/2020 ? Not Detected ? ? ? 03/16/2020 ? Not Detected ? ? ? 02/03/2020 ? Not Detected ? ? ? 11/16/2019 ? Not Detected ? ? ? 09/17/2019 ? Not Detected ? [facility] SERVICESUnCH[facility] HospitalN-[facility]MINAL PRO-BNP 2020-12-15 18:47:44 Test Item Value Reference Range Interpretation Comments NT-proBNP (test code 4560 pg/mL See_Comment H [Autom ated = [id number]) message] The system which generated this result transmitted reference range : <=125. The reference range was not used to interpret this result as normal/abnormal . DIANE (test code = DIANE) Biotin has been reported to cause a negative bias, interpret results relative to patient's use of biotin. Lab Interpretation Abnormal (test code = 08635-1) [facility] CenterL[facility]EL (43013)(TOTAL CHOLESTEROL, TRIGLYCERIDES, HDL)2020-12-15 18:38:58 Test Item Value Reference Range Interpretation Comments CHOL (test code = 188 mg/dL 120-200 7472958951) HDL (test code = 30 mg/dL >40 L 4289296175) HDLC RATIO (test code = See_Comment H [Au tomated message] 5901134545) The system [employer] generated this result transmit ludmila reference range : <=5.0. The refe rence range was not u sed to interpret th is result as normal/abnormal . TRIG (test code = 99 mg/dL 30-170 5218984711) LDL CHOL (test code = 138 mg/dL See_Comment [Auto mated message] 66688-9) The system [employer] generated this result transmit ludmila reference range : <=160. The refe rence range was not u sed to interpret th is result as normal/abnormal . VLDL (test code = 20 mg/dL 5-60 2811324711) Lab Interpretation (test Abnormal code = 36384-1) [facility]PO[facility]AUT[facility]ATED)2020-12-15 17:02:24 Test Item Value Reference Range Interpretation Comments POCT GLU (test code = 7990208923) 115 mg/dL 70-110 H Lab Interpretation (test code = Abnormal 87351-1) [facility] CenterXR CHEST 1 [id number] 16:39:09 No radiographic evidence of acute cardiopulmonary process. Preliminary Report Dictated by Resident: Maxwell Randolph. Ced Franco MD., have reviewed this study and agree with theabove report.EXAM: XR CHEST 1 VW COMPARISON: Chest x-ray dated 09/26/2020. HISTORY: chestpain. FINDINGS: Lungs: The lungs are hypoinflated. No pleural effusion or pneumothorax isidentified. Heart/Mediastinum: The cardiomediastinal silhouette is normal in sizeaccounting for technique. Dual-chamber cardiac pacer is again noted. Bones: No osseous lesions are detected. The soft tissues appear normal [facility], Radiant Results Inft User - 12/15/2020 11:40 AM CDTFormatting of this note might be dif ferent from the original.EXAM: XR CHEST 1 VWCOMPARISON: Chest x-ray dated 09/26/2020.HISTORY: chest pain.FINDINGS:Lungs: The lungs are hypoinflated. No pleural effusion or pneumothorax isidentified. Heart/Mediastinum: The cardiomediastinal silhouette is normal in sizeaccounting for technique. Dual-chamber cardiac pacer is again noted.Bones: No osseous lesions are detected. The soft tissues appear normalIMPRESSIONNo radiographic evidence of acute cardiopulmonary process.Preliminary Report Dictated by Resident: Maxwell Randolph.Ced Franco MD., have reviewed this study and agree with theabove report.[facility] CenterPO[facility]ATED)2020-12-15 13:54:13 Test Item Value Reference Range Interpretation Comments POCT GLU (test code = 5786021894) 122 mg/dL 70-110 H Lab Interpretation (test code = Abnormal 15791-8) [facility] CenterTROPONIN [id number] 10:58:44 Test Item Value Reference Interpretation Comments Range TROPONIN I (test 0.028 ng/mL See_Comment [Automated code = 0211253571) message] The system which generated this result transmitted reference range : <=0.034. The reference range was not used to interpret this result as normal/abnormal . DIANE (test code = Reference (Normal) DIANE) Range (defined by the 99th percentile reference limit): <= 0.034 ng/mL Note: Cardiac troponin begins to rise 3-4 hours after the onset of ischemia. Repeat in 4-6 hours if the sample was drawn within 3-4 hours of the onset of the symptom and found normal. Diagnosis of myocardial injury is made with acute changes in cTn concentrations with at least one serial sample above the 99th percentile upper reference limit (URL), taken together with the patient's clinical presentation. Biotin has been reported to cause a negative bias, interpret results relative to patient's use of biotin. Lab Interpretation Normal (test code = 04757-7) [facility] [id number] 08:49:06 Test Item Value Reference Interpretation Comments Range TROPONIN I (test 0.020 ng/mL See_Comment [Automated code = 0277071548) message] The system which generated this result transmitted reference range : <=0.034. The reference range was not used to interpret this result as normal/abnormal . DIANE (test code = Reference (Normal) DIANE) Range (defined by the 99th percentile reference limit): <= 0.034 ng/mL Note: Cardiac troponin begins to rise 3-4 hours after the onset of ischemia. Repeat in 4-6 hours if the sample was drawn within 3-4 hours of the onset of the symptom and found normal. Diagnosis of myocardial injury is made with acute changes in cTn concentrations with at least one serial sample above the 99th percentile upper reference limit (URL), taken together with the patient's clinical presentation. Biotin has been reported to cause a negative bias, interpret results relative to patient's use of biotin. Lab Interpretation Normal (test code = 07978-1) [facility] [id number] 02:53:29 Test Item Value Reference Interpretation Comments Range TROPONIN I (test 0.018 ng/mL See_Comment [Automated code = 2923460536) message] The system which generated this result transmitted reference range : <=0.034. The reference range was not used to interpret this result as normal/abnormal . DIANE (test code = Reference (Normal) DIANE) Range (defined by the 99th percentile reference limit): <= 0.034 ng/mL Note: Cardiac troponin begins to rise 3-4 hours after the onset of ischemia. Repeat in 4-6 hours if the sample was drawn within 3-4 hours of the onset of the symptom and found normal. Diagnosis of myocardial injury is made with acute changes in cTn concentrations with at least one serial sample above the 99th percentile upper reference limit (URL), taken together with the patient's clinical presentation. Biotin has been reported to cause a negative bias, interpret results relative to patient's use of biotin. Lab Interpretation Normal (test code = 46423-2) [facility] CenterCOVID-19 (ID NOW RAPID TESTING)2020-12-15 01:32:25 Test Item Value Reference Range Interpretation Comments SARS-CoV-2 Rapid ID NOW Not Detected Not Detected (test code = 82828-9) DIANE (test code = DIANE) ID NOW COVID-19 Assay is an isothermal nucleic acid amplification test intended for the qualitative detection of nucleic acid from SARS-CoV-2 viral RNA in nasopharyngeal (STRAIGHTENING MACHINE OPERATOR) specimens. It is used under Emergency Use Authorization (EUA) by FDA. The limit of detection (LOD) of the assay is 125 Genome Equivalents/mL. A positive result is indicative of the presence of SARS-CoV-2 RNA. ?Clinical correlation with patient history and other diagnostic [...] for repeat patient testing if clinically indicated. Lab Interpretation Normal (test code = 02741-6) [facility] CenterTRVICTOR HUGO [id number] 00:05:45 Test Item Value Reference Interpretation Comments Range TROPONIN I (test 0.016 ng/mL See_Comment [Automated code = 9177738104) message] The system which generated this result transmitted reference range : <=0.034. The reference range was not used to interpret this result as normal/abnormal . DIANE (test code = Reference (Normal) DIANE) Range (defined by the 99th percentile reference limit): <= 0.034 ng/mL Note: Cardiac troponin begins to rise 3-4 hours after the onset of ischemia. Repeat in 4-6 hours if the sample was drawn within 3-4 hours of the onset of the symptom and found normal. Diagnosis of myocardial injury is made with acute changes in cTn concentrations with at least one serial sample above the 99th percentile upper reference limit (URL), taken together with the patient's clinical presentation. Biotin has been reported to cause a negative bias, interpret results relative to patient's use of biotin. Lab Interpretation Normal (test code = 99121-7) [facility] CenteraPTT2021-07-26 23:57:00 Test Item Value Reference Range Interpretation Comments APTT Patient (test See_Comment [Automat ed code = 3173-2) message] The system which generated this result transmitted reference range : 23 - 38 Seconds . The reference range was not used to interpr et this result as normal/abnormal . DIANE (test code = DIANE) The [facility] patient population mean normal value for aPTT is 30 seconds. Lab Interpretation Normal (test code = 32045-3) [facility] CenterPROTHROMBIN TIME / [id number] 23:54:58 Test Item Value Reference Range Interpretation Comments PROTIME PATIENT (test See_Comment H [Auto mated message] code = 5964-2) The system wh ich generated this result transmitted ref erence range: 12.0 - 1 4.7 Seconds. The reference range was not used to int erpret this result as normal/abnormal . INR (test code = 6301-6) Nor mal INR <1.1; Warfarin Therap eutic range 2.0 to 3. 0 or 2.5 to 3.5, dep ending upon the indica tions. Lab Interpretation (test Abnormal code = 24013-9) [facility] CenterCOMP. METABOLIC PANEL (51636)2020-12-14 23:54:38 Test Item Value Reference Range Interpretation Comments NA (test code = 138 mmol/L 135-145 5954979185) K (test code = 3.8 mmol/L 3.5-5.0 1745793998) CL (test code = 107 mmol/L 98-108 3568558385) CO2 TOTAL (test code = 23 mmol/L 23-31 0645030293) AGAP (test code = 2-16 3822368614) BUN (test code = 15 mg/dL 7-23 2635352517) GLUCOSE (test code = 126 mg/dL 70-110 H 5247511207) CREATININE (test code = 0.70 mg/dL 0.60-1.25 1355042275) TOTAL BILI (test code = 0.7 mg/dL 0.1-1.3 5042738692) CALCIUM (test code = 9.0 mg/dL 8.6-10.6 7978783636) T PROTEIN (test code = 7.1 g/dL 6.3-8.2 7477580246) ALBUMIN (test code = 3.5 g/dL 3.5-5.0 7029150859) ALK PHOS (test code = 110 U/L 34-122 5436244219) ALTv (test code = 12 U/L 5-50 1742-6) AST(SGOT) (test code = 22 U/L 13-40 9063178622) eGFR (test code = mL/min/1.73m2 8847327448) DIANE (test code = DIANE) Association of Glomerular Filtration Rate (GFR) and Staging of Kidney Disease* + --+ --+ ------+| GFR (mL/min/1.73 m2) ?| With Kidney Damage ?| ?Without Kidney Damage+ --------+ --------+ +| ?>90 ?| ?Stage one ?| ? Normal ?+ ---+ ---+ -------+| ?60-89 ?| ?Stage two ?| ? Decreased GFR ? + --+ --+ ------+| ?30-59 ?| ?Stage three ?| ? Stage three ? + --+ --+ ------+| ?15-29 ?| ?Stage four ? | ? Stage four ?+ ---+ ---+ -------+| ?<15 (or dialysis) ? ?| ?Stage five ? | ? Stage five ?+ ---+ ---+ -------+ *Each stage assumes the associated GFR level has been in effect for at least three months. ?Stages 1 to 5, with or without kidney disease, indicate chronic kidney disease. Notes: Determination of stages one and two (with eGFR >59mL/min/1.73 m2) requires estimation of kidney damage for at least three months as defined by structural or functional abnormalities of the kidney, manifested by either:Pathological abnormalities or Markers of kidney damage (including abnormalities in the composition of the blood or urine or abnormalities in imaging tests). Lab Interpretation Abnormal (test code = 30121-7) [facility] CenterLIPASE, [id number] 23:54:23 Test Item Value Reference Range Interpretation Comments LIPASE (test code = 0471845512) 83 U/L 0-220 Lab Interpretation (test code = Normal 78852-4) [facility] CenterCB WITH [id number] 23:43:12 Test Item Value Reference Range Interpretation Comments WBC (test code = See_Comment [Automated 6690-2) message] The sy stem which generated this result transmitted reference range : 4.20 - 10.70 10*3/?L. The reference range was not used to interpret this result as normal/abnormal . RBC (test code = See_Comment L [Automated 789-8) message] The sy stem which generated this result transmitted reference range : 4.26 - 5.52 10*6/?L. The reference range was not used to interpret this result as normal/abnormal . HGB (test code = 11.6 g/dL 12.2-16.4 L 718-7) HCT (test code = 35.7 % 38.4-49.3 L 4544-3) MCV (test code = 85.0 fL 81.7-95.6 787-2) MCH (test code = 27.6 pg 26.1-32.7 785-6) MCHC (test code = 32.5 g/dL 31.2-35.0 786-4) RDW-SD (test code = 49.2 fL 38.5-51.6 34741-7) RDW-CV (test code = 16.0 % 12.1-15.4 H 788-0) PLT (test code = See_Comment [Automated 777-3) message] The sy stem which generated this result transmitted reference range : 150 - 328 10*3/ ?L. The reference r batsheva was not used to interpret this result as normal/abnormal . MPV (test code = 9.7 fL 9.8-13.0 L 45665-1) NRBC/100 WBC (test See_Comment [Automat ed code = 8945860210) message] The system which generated this result transmitted reference range : 0.0 - 10.0 /100 WBCs. The refer ence range was not u sed to interpret th is result as normal/abnormal . NRBC x10^3 (test code <0.01 See_Comment [Auto mated = 2497748440) message] The s ystem which generated this result transmitted reference range : 10*3/?L. The reference range was not used to interpret this result as normal/abnormal . GRAN MAT (NEUT) % 74.8 % (test code = 770-8) IMM GRAN % (test code 0.50 % = 9958305589) LYMPH % (test code = 15.1 % 736-9) MONO % (test code = 7.1 % 5905-5) EOS % (test code = 2.1 % 713-8) BASO % (test code = 0.4 % 706-2) GRAN MAT x10^3(ANC) 6.39 10*3/uL 1.99-6.95 (test code = 2606591520) IMM GRAN x10^3 (test 0.04 10*3/uL 0.00-0.06 code = 0142957251) LYMPH x10^3 (test code 1.29 10*3/uL 1.09-3.23 = 731-0) MONO x10^3 (test code 0.61 10*3/uL 0.36-1.02 = 742-7) EOS x10^3 (test code = 0.18 10*3/uL 0.06-0.53 711-2) BASO x10^3 (test code 0.03 10*3/uL 0.01-0.09 = 704-7) Lab Interpretation Abnormal (test code = 96791-4) [facility] CenterGLUCOSE BEDSIDE [id number] 11:52:00 Test Item Value Reference Range Interpretation Comments GLUCOSE BEDSIDE TESTING (test code = 92 mg/dL 70-110 N GLUBED) GLUCOSE BEDSIDE [id number] 08:05:00 Test Item Value Reference Range Interpretation Comments GLUCOSE BEDSIDE TESTING (test code = 62 mg/dL 70-110 L GLUBED) GLUCOSE BEDSIDE [id number] 20:40:00 Test Item Value Reference Range Interpretation Comments GLUCOSE BEDSIDE TESTING (test code 105 mg/dL 70-110 N = GLUBED) GLUCOSE BEDSIDE [id number] 17:02:00 Test Item Value Reference Range Interpretation Comments GLUCOSE BEDSIDE TESTING (test code 128 mg/dL 70-110 H = GLUBED) GLUCOSE BEDSIDE [id number] 16:37:00 Test Item Value Reference Range Interpretation Comments GLUCOSE BEDSIDE TESTING (test code 105 mg/dL 70-110 N = GLUBED) GLUCOSE BEDSIDE [id number] 08:17:00 Test Item Value Reference Range Interpretation Comments GLUCOSE BEDSIDE TESTING (test code = 88 mg/dL 70-110 N GLUBED) GLUCOSE BEDSIDE [id number] 19:45:00 Test Item Value Reference Range Interpretation Comments GLUCOSE BEDSIDE TESTING (test code 115 mg/dL 70-110 H = GLUBED) GLUCOSE BEDSIDE [id number] 18:13:00 Test Item Value Reference Range Interpretation Comments GLUCOSE BEDSIDE TESTING (test code = 74 mg/dL 70-110 N GLUBED) GLUCOSE BEDSIDE [id number] 17:29:00 Test Item Value Reference Range Interpretation Comments GLUCOSE BEDSIDE TESTING (test code = 44 mg/dL 70-110 LL GLUBED) GLUCOSE BEDSIDE [id number] 12:26:00 Test Item Value Reference Range Interpretation Comments GLUCOSE BEDSIDE TESTING (test code = 96 mg/dL 70-110 N GLUBED) GLUCOSE BEDSIDE [id number] 08:21:00 Test Item Value Reference Range Interpretation Comments GLUCOSE BEDSIDE TESTING (test code = 77 mg/dL 70-110 N GLUBED) GLUCOSE BEDSIDE [id number] 20:12:00 Test Item Value Reference Range Interpretation Comments GLUCOSE BEDSIDE TESTING (test code = 91 mg/dL 70-110 N GLUBED) GLUCOSE BEDSIDE [id number] 16:42:00 Test Item Value Reference Range Interpretation Comments GLUCOSE BEDSIDE TESTING (test code 106 mg/dL 70-110 N = GLUBED) GLUCOSE BEDSIDE [id number] 11:49:00 Test Item Value Reference Range Interpretation Comments GLUCOSE BEDSIDE TESTING (test code = 89 mg/dL 70-110 N GLUBED) GLUCOSE BEDSIDE [id number] 08:22:00 Test Item Value Reference Range Interpretation Comments GLUCOSE BEDSIDE TESTING (test code = 68 mg/dL 70-110 L GLUBED) GLUCOSE BEDSIDE [id number] 20:05:00 Test Item Value Reference Range Interpretation Comments GLUCOSE BEDSIDE TESTING (test code 137 mg/dL 70-110 H = GLUBED) GLUCOSE BEDSIDE [id number] 16:42:00 Test Item Value Reference Range Interpretation Comments GLUCOSE BEDSIDE TESTING (test code = 98 mg/dL 70-110 N GLUBED) GLUCOSE BEDSIDE [id number] 11:13:00 Test Item Value Reference Range Interpretation Comments GLUCOSE BEDSIDE TESTING (test code 118 mg/dL 70-110 H = GLUBED) GLUCOSE BEDSIDE [id number] 07:37:00 Test Item Value Reference Range Interpretation Comments GLUCOSE BEDSIDE TESTING (test code 140 mg/dL 70-110 H = GLUBED) COMPREHENSIVE METABOLIC [id number] 06:34:00 Test Item Value Reference Range Interpretation Comments SODIUM (test code = NA) 141 mmol/L 134-147 N POTASSIUM (test code = 3.9 mmol/L 3.4-5.0 N K) CHLORIDE (test code = 107 mmol/L 100-108 N CL) CARBON DIOXIDE (test 28 mmol/L 21-32 N code = CO2) ANION GAP (test code = 6.0 GAP calc 4.0-15.0 N GAP) GLUCOSE (test code = 129 MG/DL 70-110 H GLU) BLOOD UREA NITROGEN 16 MG/DL 7-18 N (test code = BUN) GLOMERULAR FILTRATION >=60 max estimate >60 RATE (test code = GFR) estGFR CREATININE (test code = 0.8 MG/DL 0.8-1.3 N CREAT) TOTAL PROTEIN (test code 6.4 G/DL 6.4-8.2 N = PROT) ALBUMIN (test code = 2.7 G/DL 3.4-5.0 L ALB) GLOBULIN (test code = 3.7 GM/dL GLOB) ALBUMIN/GLOBULIN RATIO 0.7 RATIO 1.2-2.2 L (test code = A/G) CALCIUM (test code = CA) 8.5 MG/DL 8.5-10.1 N BILIRUBIN TOTAL (test 0.60 MG/DL 0.2-1.2 N code = BILT) SGOT/AST (test code = 16 Unit/L 15-37 N AST) SGPT/ALT (test code = 13 Unit/L 12-78 N ALT) ALKALINE PHOSPHATASE 142 Unit/L 50-136 H TOTAL (test code = ALKP) CBC W/AUTO [id number] 06:25:00 Test Item Value Reference Range Interpretation Comments WHITE BLOOD CELL (test code = 5.8 K/mm3 3.5-11.0 N WBC) RED BLOOD CELL (test code = 3.87 M/mm3 4.70-6.10 L RBC) HEMOGLOBIN (test code = HGB) 10.6 G/DL 12.3-15.9 L HEMATOCRIT (test code = HCT) 33.9 % 35.8-46.7 L MEAN CELL VOLUME (test code = 87.6 Fl 86.3-98.9 N MCV) MEAN CELL HGB (test code = MCH) 27.4 pg 28.9-34.4 L MEAN CELL HGB CONCETRATION 31.3 G/DL 32.1-34.5 L (test code = MCHC) RED CELL DISTRIBUTION WIDTH 16.3 SD 11.5-14.5 H (test code = RDW) PLATELET COUNT (test code = 239 K/mm3 150-450 N PLT) MEAN PLATELET VOLUME (test code 10.00 fL 7.0-9.6 H = MPV) NEUTROPHIL % (test code = NT%) 63.1 % 40-76 N IMMATURE GRANULOCYTE % (test 0.3 % 0.0-5.0 N code = IG%) LYMPHOCYTE % (test code = LY%) 24.0 % 20.5-51.1 N MONOCYTE % (test code = MO%) 9.3 % 1.7-9.3 N EOSINOPHIL % (test code = EO%) 2.6 % 0.0-6.0 N BASOPHIL % (test code = BA%) 0.7 % 0.0-2.0 N NUCLEATED RBC % (test code = 0.0 /100WBC% 0.0-1.0 N NRBC%) NEUTROPHIL # (test code = NT#) 3.7 K/mm3 1.8-7.6 N IMMATURE GRANULOCYTE # (test 0.02 x10 3/uL 0.00-0.03 N code = IG#) LYMPHOCYTE # (test code = LY#) 1.4 K/mm3 0.6-3.0 N MONOCYTE # (test code = MO#) 0.5 K/mm3 0.2-1.5 N EOSINOPHIL # (test code = EO#) 0.2 K/mm3 0.0-0.4 N BASOPHIL # (test code = BA#) 0.0 K/mm3 0.0-0.2 N NUCLEATED RBC # (test code = 0.0 K/mm3 0.00-0.01 N NRBC#) MANUAL DIFF REQUIRED (test code NO DIFF/SCN CRITERIA = MDIFF) - CT ABDOMEN W/[id number] 03:09:00 [facility] 1960 Sex: M Name: ERNIE VANCE [facility] : 1960 Age/S: 60 / M [id number] [address] [place] Unit #: [id number] Loc: [place] [address] Phys: PorfirioFede cheung Acct: [id number] Dis Date: Status: ADM IN PHONE #: [phone] Exam Date: 10/31/20201919 FAX #: Reason: NAUSEA, VOMITING, DIARRHEA EXAMS: CPT: [id number] CT ABDOMEN W/CONTRAST 29977 EXAM: - CT ABDOMEN W/CONTRAST LOCATION: 1 CLINICAL HISTORY/INDICATION: NAUSEA, VOMITING, DIARRHEA COMPARISON: KUB 10/31/2020. CT 08/23/2020. TECHNIQUE: Axial CT images of the abdomen were obtained from with IV contrast administration. Coronaland sagittal reformations were reconstructed from the axial data set. Postcontrast images were acquired in the portal venous phase This examination was performed according to our departmental dose optimization program, which includes automated exposure control, adjustment of the mA and/or kV according to patient size, and/or use of iterative reconstruction techniqu e. FINDINGS: LOWER THORAX: Moderate bilateral pleural effusions with compressive atelectasis in bilateral lower lobes. Pacemaker leads are present. LIVER: No focal hepatic lesions or intrahepatic biliary dilatation. GALLBLADDER/BILIARY SYSTEM: Cholecystectomy. Dilatation of the common bile duct up to 15 mm stable. No intrahepatic biliary dilatation. PANCREAS: Unremarkable. SPLEEN: No splenomegaly orfocal lesions. ADRENALS: No adrenal nodules. KIDNEYS/URETERS: No hydronephrosis, stones, or solid mass lesions. Mild nonspecific bilateral perinephric fat stranding is stable. 2.4 similar cyst in the anterior mid right renal cortex is stable. VESSELS: No AAA. Patent portal vein. LYMPH NODES: No lymphadenopathy. PERITONEUM / RETROPERITONEUM: No free air or fluid. GI TRACT: There is enteric contrast present within the stomach, small bowel and colon. There is no small bowel obstruction. There is no PAGE 1 Signed Report (CONTINUED) Name: ERNIE VANCE : 1960 Age/S: 60 / M [address] [address] [place] Unit #: [id number] Loc: [place] [address] Phys: Fede Carrera DO Acct: [id number] Dis Date: Status: ADM IN PHONE #: [phone] Exam Date: 10/31/20201919 FAX #: Reason: NAUSEA, VOMITING, DIARRHEA EXAMS: CPT: [id number] CT ABDOMEN W/CONTRAST 24606 <Continued> small bowelwall thickening. The appendix is normal. There is no evidence of colitis no colonic obstruction. Evaluation of the distal sigmoid colon is limited due to streak artifact from barium. EXTERNAL SOFT TISSUE: No abnormalities. BONES: Postsurgical changes of median sternotomy. No acute fractures. Posterior laminectomies at L4-L5 with posterior fusion. Posterior fusion construct consists of a left- sided transpedicular screw at L4, left transarticular screw at L5-S1 and a single vertical erika. There are solid bilateral posterior fusion bone masses. IMPRESSION: 1. No acute findings in the abdomen. No small bowel obstruction or colonic obstruction. 2. Moderate bilateral pleural effusions. at 0309 Reported and signed by: Carmen Encarnacion M.D. CC: Fransisco Elam MD; Fede Carrera DO Technologist:RT Rohan(R) CTDI: DLP: Trnscb Date/Time: 11/01/2020 (0309) [email or web address] Orig Print D/T: S: 11/01/2020 (0312) PAGE 2 Signed ReportGLUCOSE BEDSIDE TESTING 2020-10-31 21:34:00 Test Item Value Reference Range Interpretation Comments GLUCOSE BEDSIDE TESTING (test code 161 mg/dL 70-110 H = GLUBED) GLUCOSE BEDSIDE [id number] 17:32:00 Test Item Value Reference Range Interpretation Comments GLUCOSE BEDSIDE TESTING (test code 136 mg/dL 70-110 H = GLUBED) - XR ABDOMEN 1 [id number] 12:44:00 [facility] 1960 Sex: M Name: ERNIE VANCE [facility] : 1960 Age/S: 60 / M [id number] [address] [place] Unit #: [id number] Loc: [place] [address] Phys: Fede Carrera Acct: [id number] Dis Date: Status: ADM IN PHONE #: [phone] Exam Date: 10/31/2020 1227 FAX #: Reason:Abdominal pain in the lower qudarants EXAMS: CPT: [id number] XR ABDOMEN 1 V 66302 Fluoro Time: DAP (Gy m2): Air Kerma (mGy): CLINICAL INFORMATION: Lower abdominal pain.. Dictation location: T 18 Comparison: 09/09/2010 showed nonspecific bowel gas pattern. Technique: Supine view. Findings. There is barium mixed with stool throughout the length of the nondilated colon. The bowel gas pattern is otherwise nonspecific with a few air-filled loops of small bowel also noted. There is postoperative change in the spine. No apparent urologic calcification. IMPRESSION: Residual barium in the colon. Mild air-filled prominence of a few small bowel loops. Overall nonspecific appearance. at 1244 Reported and signed by: Ananth Schmidt M.D. CC: Fransisco Elam MD; Fede Carrera DO PAGE 1 Signed Report Name: ERNIE VANCE [place] : 1960 Age/S: 60 / M [id number] [address] [place] Unit #: [id number] Loc: [place] [address] Phys: Fede Carrera DO Acct: [id number] Dis Date: Status: ADM IN PHONE #: [phone] Exam Date: 10/31/2020 1227 FAX #: Reason: Abdominal pain in the lower qudarants EXAMS: CPT: [id number] XR ABDOMEN 1 V 77479 Fluoro Time: DAP (Gy m2): Air Kerma (mGy): <Continued> Technologist: Cecelia Arias RT(R) Trnscb Date/Time: 10/31/2020 (124) [id number] Orig Print D/T: S: 10/31/2020 (8717) PAGE 2 Signed ReportGLUCOSE BEDSIDE [id number] 11:58:00 Test Item Value Reference Range Interpretation Comments GLUCOSE BEDSIDE TESTING (test code 105 mg/dL 70-110 N = GLUBED) GLUCOSE BEDSIDE [id number] 08:01:00 Test Item Value Reference Range Interpretation Comments GLUCOSE BEDSIDE TESTING (test code 106 mg/dL 70-110 N = GLUBED) [id number] 22:46:00 Test Item Value Reference Range Interpretation Comments TROPONIN-I (test 0.015 NG/ML 0.000-0.045 N Negative: < /= 0.045 code = TROPI) Positive: >/= 0.046 Correlation wit h serial results, other cardiac markers, and cl inical findings is nec essary to determine the c linical significance of this result. Quantit ative results using d ifferent methodologies s hould not be compared to one another as nume rical results may babak yby method. Completed by Nursing: NOGLUCOSE BEDSIDE [id number] 21:55:00 Test Item Value Reference Range Interpretation Comments GLUCOSE BEDSIDE TESTING (test code 119 mg/dL 70-110 H = GLUBED) [id number] 19:33:00 Test Item Value Reference Range Interpretation Comments TROPONIN-I (test 0.023 NG/ML 0.000-0.045 N Negative: < /= 0.045 code = TROPI) Positive: >/= 0.046 Correlation wit h serial results, other cardiac markers, and cl inical findings is nec essary to determine the c linical significance of this result. Quantit ative results using d ifferent methodologies s hould not be compared to one another as nume rical results may babak yby method. Completed by Nursing: NOCoronavirus 2019 nCoV [id number] 18:46:00 Test Item Value Reference Range Interpretation Comments Coronavirus 2019 nCoV Negative Negative Per ma nufacturer, Bedside (test code = negativ e results should [id number]) be treated aspresumptive a nd, if inconsistent wi th clinical signs andsymptoms or necessary for p atient management, el uld betested with a n alternative mol ecular assay. Negative resultsdo not p reclude SARS-CoV-2 infe ction and should not be usedas the sole basis for patient man agement decisions. Neg ative results should be considered in t he context of apat ient's recent exposure s, history, prese nce of clinicalsigns a nd symptoms consis tent with COVID-19. Spec Comments: NNT PRO-BRAIN NATRIURETIC [id number] 15:51:00 Test Item Value Reference Range Interpretation Comments NT PRO-BRAIN NATRIURETIC PEPTI 6079 PG/ML 0-100 H (test code = PROBNP) Completed by Nursing: [id number] 15:51:00 Test Item Value Reference Range Interpretation Comments TROPONIN-I (test 0.015 NG/ML 0.000-0.045 N Negative: < /= 0.045 code = TROPI) Positive: >/= 0.046 Correlation wit h serial results, other cardiac markers, and cl inical findings is nec essary to determine the c linical significance of this result. Quantit ative results using d ifferent methodologies s hould not be compared to one another as nume rical results may babak yby method. Completed by Nursing: NOBASIC METABOLIC [id number] 15:51:00 Test Item Value Reference Range Interpretation Comments SODIUM (test code = NA) 143 mmol/L 134-147 N POTASSIUM (test code = 3.7 mmol/L 3.4-5.0 N K) CHLORIDE (test code = 110 mmol/L 100-108 H CL) CARBON DIOXIDE (test 27 mmol/L 21-32 N code = CO2) ANION GAP (test code = 6.0 GAP calc 4.0-15.0 N GAP) GLUCOSE (test code = 136 MG/DL 70-110 H GLU) BLOOD UREA NITROGEN 13 MG/DL 7-18 N (test code = BUN) GLOMERULAR FILTRATION >=60 max estimate >60 RATE (test code = GFR) estGFR CREATININE (test code = 0.7 MG/DL 0.8-1.3 L CREAT) CALCIUM (test code = CA) 8.2 MG/DL 8.5-10.1 L Completed by Nursing: NOCREATINE KINASE (CK)2020-10-30 15:51:00 Test Item Value Reference Range Interpretation Comments CREATINE KINASE (CK) (test code = 94 Unit/L 26-192 N CK) Completed by Nursing: NO- XR CHEST 1 [id number] 15:42:00 [facility] 1960 Sex: M Name: ERNIE VANCE [facility] : 1960 Age/S: 60 / M [id number] [address] [place] Unit #: [id number] Loc: [place] [address] Phys: Todd Jacobo MD Acct: [id number] Dis Date: Status: PRE ER PHONE #: [phone] Exam Date: 10/30/2020 1524 FAX #: Reason:chest pain EXAMS: CPT: [id number] XR CHEST 1 V 14485 Fluoro Time: DAP (Gy m2): Air Kerma (mGy): Single View Chest. Location: S17 Clinical Indication: 60-year-old with chest pain Comparison: August 10, 2020 Findings: An AP view of the chest was obtained. Prior sternotomy. There is mild enlargement of the heart. There is hazy opacification of the perihilar and lower lungs, new from prior exam. There may be small layering effusions. No pneumothorax. A left subclavian approach dual lead pacemaker is present. No acute osseous abnormality. Impression: Perihilar and lower lung hazy opacification may be congestive heart failure or bibasilar pneumonia. There may be small layering effusions. Elec tronically Signed by Maria Eugenia Ruiz on 10/30/2020 at 1542 Reported and signed by: Lopez Ruiz M.D. CC: Fransisco Elam MD; Todd Jacobo MD PAGE 1 Signed Report Name: ERNIE VANCE [facility] : 8Age/S: 60 / M [id number] [address] [place] Unit #: [id number] Loc: [place] [address] Phys: Todd Jacobo MD Acct: [id number] Dis Date: Status: PRE ER PHONE#: [phone] Exam Date: 10/30/2020 1524 FAX #: Reason: chest pain EXAMS: CPT: [id number] XR CHEST 1 V 04677 Fluoro Time: DAP (Gy m2): Air Kerma (mGy): <Continued> Technologist: Kim Andrews RT(R)(CT) Trnscb Date/Time: 10/30/2020 (1546) [id number] Orig Print D/T: S: 10/30/2020 (6201) PAGE 2 Signed ReportCBC W/O DIFF 2020-10-30 15:31:00 Test Item Value Reference Range Interpretation Comments WHITE BLOOD CELL (test code = WBC) 7.4 K/mm3 3.5-11.0 N RED BLOOD CELL (test code = RBC) 4.02 M/mm3 4.70-6.10 L HEMOGLOBIN (test code = HGB) 11.0 G/DL 12.3-15.9 L HEMATOCRIT (test code = HCT) 34.9 % 35.8-46.7 L MEAN CELL VOLUME (test code = MCV) 86.8 Fl 86.3-98.9 N MEAN CELL HGB (test code = MCH) 27.4 pg 28.9-34.4 L MEAN CELL HGB CONCETRATION (test 31.5 G/DL 32.1-34.5 L code = MCHC) RED CELL DISTRIBUTION WIDTH (test 16.8 SD 11.5-14.5 H code = RDW) PLATELET COUNT (test code = PLT) 273 K/mm3 150-450 N MEAN PLATELET VOLUME (test code = 9.70 fL 7.0-9.6 H MPV) FL UPPER GI SMALL BOWEL [id number] 17:22:39HISTORY: Nausea and upper abdominal pain. FINDINGS: TECHNIQUE: Abdominal radiographs were obtained prior to upper GI seriesand/or reviewed by me. Upper GI series was completed first. Subsequentlybariumis administered orally and serial films of the abdominal and pelvisare obtained. Digital spot imagesof small bowel loops including terminalileum were obtained by me. FINDINGS: KUB radiographs showed Ch olecystectomy, open thoracic surgery,permanent electrodes in the heart and lumbar spine surgery changes. Upper GI series:Swallowing mechanism appear normal. No hiatal hernia orgastroesophageal reflux detected. Stomach and duodenum show normalperistalsis, contour and mucosal lining. No ulcerations noted in the mucosalining of the stomach, duodenum or the proximal jejunum. Small bowel series: Barium flow through the small bowel appearsunobstructed with the right side of the colon visualized at approximately 1hour and 20 minutes. Entire small bowel including spot films of theterminal ileum show normalmucosal pattern, caliber as well as distributionof small bowel loops in the abdominal and pelvis. CONCLUSIONS: Normal upper GI series. Normal small bowel series. [facility], Radiant Results Inft User - 10/28/2020 12:23 PM CDT HISTORY: Nausea and upper abdominal pain.FINDINGS: TECHNIQUE: Abdominal radiographs were obtained prior to upper GI seriesand/or reviewed by me. Upper GI series was completed first. Subsequentlybarium is administered orally and serial films of the abdominal and pelvisare obtained. Digital spot images of small bowel loops including terminalileum were obtained by me.FINDINGS: KUB radiographs showed Cholecystectomy, open thoracic surgery,permanent electrodes in the heart and lumbar spine surgery changes.Upper GI series:Swallowing mechanism appear normal. No hiatal hernia orgastroesophageal reflux detected. Stomach and duodenum show normalperistalsis, contour and mucosal lining. No ulcerations noted in the mucosalining of the stomach, duodenum or the proximal jejunum.Small bowel series: Barium flow through the small bowel appearsunobstructed with the right side of the colon visualized at approximately 1hour and 20 minutes. Entire small bowel including spot films of theterminal ileum show normal mucosal pattern, caliber as well as distributionof small bowel loops in the abdominal and pelvis.CONCLUSIONS: Normal upper GI series. Normal small bowel series.[facility] URINALYSIS, [id number] 19:33:00 Test Item Value Reference Range Interpretation Comments POCT U SP GRAV (test code = 1.025 mg/dl 1.005-1.025 3255) POCT PH U (test code = 3254) 6.5 mg/dl 5-8 POCT U LEUK EST (test code = neg Negative - Negative 3263) POCT U NIT (test code = 3262) neg Negative - Negative POCT U PROT (test code = Negative - Negative 3259) POCT U GLU (test code = 3256) neg Negative - Negative POCT U KETONE (test code = neg Negative - Negative 3258) POCT U UROBILI (test code = 1.0 mg/dl 0.2-1 3260) POCT U BILI (test code = neg Negative - Negative 3261) POCT U BLD (test code = 3257) moderate Negative - Negative POCT U COLOR (test code = dark yellow 3266) POCT U APPEAR (test code = clear 3267) Lab Interpretation (test code Abnormal = 05195-1) [facility] URINALYSIS, [id number] 19:33:00 Test Item Value Reference Range Interpretation Comments POCT U SP GRAV (test code = 1.025 mg/dl 1.005-1.025 3255) POCT PH U (test code = 3254) 6.5 mg/dl 5-8 POCT U LEUK EST (test code = neg Negative - Negative 3263) POCT U NIT (test code = 3262) neg Negative - Negative POCT U PROT (test code = Negative - Negative 3259) POCT U GLU (test code = 3256) neg Negative - Negative POCT U KETONE (test code = neg Negative - Negative 3258) POCT U UROBILI (test code = 1.0 mg/dl 0.2-1 3260) POCT U BILI (test code = neg Negative - Negative 3261) POCT U BLD (test code = 3257) moderate Negative - Negative POCT U COLOR (test code = dark yellow 3266) POCT U APPEAR (test code = clear 3267) Lab Interpretation (test code Abnormal = 37490-6) [facility] [id number] 00:45:42Impression: 1. Anasarca.2. Large bilateral pleural effusions, with adjacent atelectasis.3. Cholecystectomy.4. Right renal cyst.5. Atherosclerosis.6. Mild prostatic enlargement.7. Colonic diverticulosis, without diverticulitis. RL: 460 End of Report Ordering Physician: ÓSCAR HERMOSILLO History: Nausea and vomiting. Acute nonlocalized abdominal pain. Technique: CT abdomen and pelvis without intravenous contrast. Thisexamination was performed according to ALARA principles. Technical quality: Adequate Comparison: CT abdomen and pelvis July 24, 2020. Findings: There is diffuse soft tissue edema, compatible with anasarca. The patientis again noted to be status post cholecystectomy. There is unchanged mildbiliary dilatation. The liver, spleen, pancreas, and adrenal glands areunremarkable. Bilateral perinephric fat stranding is unchanged and likelyidiopathic. A right renal cyst is again noted. There is atheroscleroticcalcification of the abdominal aorta and its branches, with no evidence ofaneurysm. The urinary bladder is grossly unremarkable. There is mildprostatic enlargement. There is colonic diverticulosis, without diverticulitis. A normal appendixis identified. There is no bowel obstruction. There is no freeintraperitoneal fluid or free intraperitoneal air. Postoperative anddegenerative changes of the spine are again noted. Noacute bonyabnormalities are evident. Scans through the base of the chest demonstratelarge bilateral p leural effusions, with atelectasis within the lung basesbilaterally. There are partially visualized pacemaker leads. [facility], Radiant Results Inft User - 09/28/2020 7:46 PM CDTOrdering Physician: HARESH COYNEUNLEHistory: Nausea and vomiting. Acute nonlocalized abdominal pain.Technique: CT abdomen and pelvis without intravenous contrast. Thisexamination was performed according to ALARA principles.Technical quality: AdequateComparison: CT abdomen and pelvis July 24, 2020.Findings: There is diffuse soft tissue edema, compatible with anasarca. The patientis again noted to be status post cholecystectomy. There is unchanged mildbiliary dilatation. The liver, spleen, pancreas, and adrenal glands areunremarkable. Bilateral perinephric fat stranding is unchanged and likelyidiopathic. A right renal cyst isagain noted. There is atheroscleroticcalcification of the abdominal aorta and its branches, with no e vidence ofaneurysm. The urinary bladder is grossly unremarkable. There is mildprostatic enlargement.There is colonic diverticulosis, without diverticulitis. A normal appendixis identified. There is no bowel obstruction. There is no freeintraperitoneal fluid or free intraperitoneal air. Postoperative anddegenerative changes of the spine are again noted. No acute bonyabnormalities are evident. Scans through the base of the chest demonstratelarge bilateral pleural effusions, with atelectasis within thelung basesbilaterally. There are partially visualized pacemaker leads.IMPRESSIONImpression: 1. Anasarca.2. Large bilateral pleural effusions, with adjacent atelectasis.3. Cholecystectomy.4. Right renalcyst.5. Atherosclerosis.6. Mild prostatic enlargement.7. Colonic diverticulosis, without diverticulitis.RL: 460End of Report [facility] COMP. METABOLIC PANEL (50748)2020-09-28 23:53:53 Test Item Value Reference Range Interpretation Comments NA (test code = 141 mmol/L 135-145 4317613140) K (test code = 4.1 mmol/L 3.5-5.0 5675279206) CL (test code = 106 mmol/L 98-108 6395165056) CO2 TOTAL (test code = 25 mmol/L 23-31 9635053467) AGAP (test code = 2-16 2359000703) BUN (test code = 13 mg/dL 7-23 2286597141) GLUCOSE (test code = 138 mg/dL 70-110 H 8430234616) CREATININE (test code = 0.66 mg/dL 0.60-1.25 2066910892) TOTAL BILI (test code = 0.5 mg/dL 0.1-1.0 9440282093) CALCIUM (test code = 8.7 mg/dL 8.6-10.6 3479551412) T PROTEIN (test code = 7.2 g/dL 6.3-8.2 1145952366) ALBUMIN (test code = 4.0 g/dL 3.5-5.0 9227719417) ALK PHOS (test code = 167 U/L 34-122 H 2823437711) ALTv (test code = 12 U/L 5-50 1742-6) AST(SGOT) (test code = 21 U/L 13-40 9941892350) eGFR (test code = mL/min/1.73m2 8473967264) DIANE (test code = DIANE) Association of Glomerular Filtration Rate (GFR) and Staging of Kidney Disease* + --+ --+ ------+| GFR (mL/min/1.73 m2) ?| With Kidney Damage ?| ?Without Kidney Damage+ --------+ --------+ +| ?>90 ?| ?Stage one ?| ? Normal ?+ ---+ ---+ -------+| ?60-89 ?| ?Stage two ?| ? Decreased GFR ? + --+ --+ ------+| ?30-59 ?| ?Stage three ?| ? Stage three ? + --+ --+ ------+| ?15-29 ?| ?Stage four ? | ? Stage four ?+ ---+ ---+ -------+| ?<15 (or dialysis) ? ?| ?Stage five ? | ? Stage five ?+ ---+ ---+ -------+ *Each stage assumes the associated GFR level has been in effect for at least three months. ?Stages 1 to 5, with or without kidney disease, indicate chronic kidney disease. Notes: Determination of stages one and two (with eGFR >59mL/min/1.73 m2) requires estimation of kidney damage for at least three months as defined by structural or functional abnormalities of the kidney, manifested by either:Pathological abnormalities or Markers of kidney damage (including abnormalities in the composition of the blood or urine or abnormalities in imaging tests). Lab Interpretation Abnormal (test code = 54236-5) [facility]IP[facility] 23:53:33 Test Item Value Reference Range Interpretation Comments LIPASE (test code = 3780007842) 198 U/L 0-220 Lab Interpretation (test code = Normal 27621-0) [facility] WITH [id number] 23:43:10 Test Item Value Reference Range Interpretation Comments WBC (test code = See_Comment [Automated 6690-2) message] The sy stem which generated this result transmitted reference range : 4.20 - 10.70 10*3/?L. The reference range was not used to interpret this result as normal/abnormal . RBC (test code = See_Comment L [Automated 789-8) message] The sy stem which generated this result transmitted reference range : 4.26 - 5.52 10*6/?L. The reference range was not used to interpret this result as normal/abnormal . HGB (test code = 10.1 g/dL 12.2-16.4 L 718-7) HCT (test code = 31.9 % 38.4-49.3 L 4544-3) MCV (test code = 86.7 fL 81.7-95.6 787-2) MCH (test code = 27.4 pg 26.1-32.7 785-6) MCHC (test code = 31.7 g/dL 31.2-35.0 786-4) RDW-SD (test code = 62.4 fL 38.5-51.6 H 47978-0) RDW-CV (test code = 19.7 % 12.1-15.4 H 788-0) PLT (test code = See_Comment [Automated 777-3) message] The sy stem which generated this result transmitted reference range : 150 - 328 10*3/ ?L. The reference r batsheva was not used to interpret this result as normal/abnormal . MPV (test code = 10.6 fL 9.8-13.0 02864-8) NRBC/100 WBC (test See_Comment [Automat ed code = 2660314210) message] The system which generated this result transmitted reference range : 0.0 - 10.0 /100 WBCs. The refer ence range was not u sed to interpret th is result as normal/abnormal . NRBC x10^3 (test code <0.01 See_Comment [Auto mated = 2399921567) message] The s ystem which generated this result transmitted reference range : 10*3/?L. The reference range was not used to interpret this result as normal/abnormal . GRAN MAT (NEUT) % 63.1 % (test code = 770-8) IMM GRAN % (test code 0.30 % = 5932591649) LYMPH % (test code = 21.7 % 736-9) MONO % (test code = 10.0 % 5905-5) EOS % (test code = 4.2 % 713-8) BASO % (test code = 0.7 % 706-2) GRAN MAT x10^3(ANC) 3.73 10*3/uL 1.99-6.95 (test code = 7930907572) IMM GRAN x10^3 (test <0.03 0.00-0.06 code = 2484051297) LYMPH x10^3 (test code 1.28 10*3/uL 1.09-3.23 = 731-0) MONO x10^3 (test code 0.59 10*3/uL 0.36-1.02 = 742-7) EOS x10^3 (test code = 0.25 10*3/uL 0.06-0.53 711-2) BASO x10^3 (test code 0.04 10*3/uL 0.01-0.09 = 704-7) Lab Interpretation Abnormal (test code = 06595-3) [facility] GLU[facility]SE (AUTOMATED)2020-09-26 21:48:35 Test Item Value Reference Range Interpretation Comments POCT GLU (test code = 7956824258) 101 mg/dL 70-110 Lab Interpretation (test code = Normal 00589-1) [facility]XR [facility] 1 [id number] 17:32:37 1. Stable small bilateral pleural effusions with adjacent atelectasis. Indication: Pleural effusions, CHF ? Comparison: CT of the chest 09/23/2020 RL: 4209 ORDERING PHYSICIAN: OLGA ORDOÑEZ TECHNIQUE: Single view of the chest. FINDINGS: Left-sided pacemaker is stable. There are small bilateral pleuraleffusions with adjacent atelectasis. Ca rdiac silhouette is enlarged. ?Nopneumothorax. Median sternotomy wires are intact. [facility], Radiant Results Inft User - 09/26/2020 12:33 PM CDTIndication: Pleural effusions, CHF Comparison: CT of the chest 09/23/2020L: 4209ORDERING PHYSICIAN: BLAKE FERNANDEZ TECHNIQUE: Single view of the chest.FINDINGS:Left- sided pacemaker is stable. There are small bilateral pleuraleffusions with adjacent atelectasis. Cardiac silhouette is enlarged. Nopneumothorax. Median sternotomy wires are intact.IMPRESSION1. Stable small bilateral pleural effusions with adjacent atelectasis. [facility] 2020-09-26 17:31:11 Test Item Value Reference Range Interpretation Comments POCT GLU (test code = 3101204380) 48 mg/dL 70-110 LL Lab Interpretation (test code = Abnormal 08640-9) [facility] GLUCOSE (AUTOMATED)2020-09-26 17:31:11 Test Item Value Reference Range Interpretation Comments POCT GLU (test code = 6033565577) 162 mg/dL 70-110 H Lab Interpretation (test code = Abnormal 56561-0) [facility] GLUCOSE (AUTOMATED)2020-09-26 16:48:17 Test Item Value Reference Range Interpretation Comments POCT GLU (test code = 8341388796) 259 mg/dL 70-110 H Lab Interpretation (test code = Abnormal 47955-3) [facility] GLUCOSE (AUTOMATED)2020-09-26 13:04:01 Test Item Value Reference Range Interpretation Comments POCT GLU (test code = 7869200283) 137 mg/dL 70-110 H Lab Interpretation (test code = Abnormal 30055-3) [facility]. METABOLIC PANEL (73581)2020-09-26 12:22:51 Test Item Value Reference Range Interpretation Comments NA (test code = 140 mmol/L 135-145 6186425699) K (test code = 3.9 mmol/L 3.5-5.0 3183420346) CL (test code = 104 mmol/L 98-108 9250278753) CO2 TOTAL (test code = 25 mmol/L 23-31 3955470524) AGAP (test code = 2-16 8362993655) BUN (test code = 14 mg/dL 7-23 3081680975) GLUCOSE (test code = 35 mg/dL 70-110 LL 9017538811) CREATININE (test code = 0.88 mg/dL 0.60-1.25 8517121222) TOTAL BILI (test code = 0.7 mg/dL 0.1-1.5 8397079948) CALCIUM (test code = 8.6 mg/dL 8.6-10.6 6545964160) T PROTEIN (test code = 6.9 g/dL 6.3-8.2 9983733547) ALBUMIN (test code = 3.8 g/dL 3.5-5.0 4764416601) ALK PHOS (test code = 178 U/L 34-122 H 8194670495) ALTv (test code = 17 U/L 5-50 1742-6) AST(SGOT) (test code = 28 U/L 13-40 7777264893) eGFR (test code = mL/min/1.73m2 6209453440) DIANE (test code = DIANE) Association of Glomerular Filtration Rate (GFR) and Staging of Kidney Disease* + --+ --+ ------+| GFR (mL/min/1.73 m2) ?| With Kidney Damage ?| ?Without Kidney Damage+ --------+ --------+ +| ?>90 ?| ?Stage one ?| ? Normal ?+ ---+ ---+ -------+| ?60-89 ?| ?Stage two ?| ? Decreased GFR ? + --+ --+ ------+| ?30-59 ?| ?Stage three ?| ? Stage three ? + --+ --+ ------+| ?15-29 ?| ?Stage four ? | ? Stage four ?+ ---+ ---+ -------+| ?<15 (or dialysis) ? ?| ?Stage five ? | ? Stage five ?+ ---+ ---+ -------+ *Each stage assumes the associated GFR level has been in effect for at least three months. ?Stages 1 to 5, with or without kidney disease, indicate chronic kidney disease. Notes: Determination of stages one and two (with eGFR >59mL/min/1.73 m2) requires estimation of kidney damage for at least three months as defined by structural or functional abnormalities of the kidney, manifested by either:Pathological abnormalities or Markers of kidney damage (including abnormalities in the composition of the blood or urine or abnormalities in imaging tests). Lab Interpretation Abnormal (test code = 22445-8) [facility] Center[facility] [id number] 12:10:35 Test Item Value Reference Range Interpretation Comments NT-proBNP (test code 3170 pg/mL See_Comment H [Autom ated = [id number]) message] The system which generated this result transmitted reference range : <=125. The reference range was not used to interpret this result as normal/abnormal . DIANE (test code = DIANE) Biotin has been reported to cause a negative bias, interpret results relative to patient's use of biotin. Lab Interpretation Abnormal (test code = 71740-4) [facility] WITH [id number] 12:02:17 Test Item Value Reference Range Interpretation Comments WBC (test code = See_Comment [Automated 1844-2) message] The sy stem which generated this result transmitted reference range : 4.20 - 10.70 10*3/?L. The reference range was not used to interpret this result as normal/abnormal . RBC (test code = See_Comment L [Automated 6698) message] The sy stem which generated this result transmitted reference range : 4.26 - 5.52 10*6/?L. The reference range was not used to interpret this result as normal/abnormal . HGB (test code = 9.6 g/dL 12.2-16.4 L 718-7) HCT (test code = 30.9 % 38.4-49.3 L 4544-3) MCV (test code = 87.0 fL 81.7-95.6 787-2) MCH (test code = 27.0 pg 26.1-32.7 785-6) MCHC (test code = 31.1 g/dL 31.2-35.0 L 786-4) RDW-SD (test code = 62.7 fL 38.5-51.6 H 62455-1) RDW-CV (test code = 19.9 % 12.1-15.4 H 788-0) PLT (test code = See_Comment [Automated 777-3) message] The sy stem which generated this result transmitted reference range : 150 - 328 10*3/ ?L. The reference r batsheva was not used to interpret this result as normal/abnormal . MPV (test code = 10.3 fL 9.8-13.0 53020-0) NRBC/100 WBC (test See_Comment [Automat ed code = 6666577652) message] The system which generated this result transmitted reference range : 0.0 - 10.0 /100 WBCs. The refer ence range was not u sed to interpret th is result as normal/abnormal . NRBC x10^3 (test code <0.01 See_Comment [Auto mated = 8572677234) message] The s ystem which generated this result transmitted reference range : 10*3/?L. The reference range was not used to interpret this result as normal/abnormal . GRAN MAT (NEUT) % 46.0 % (test code = 770-8) IMM GRAN % (test code 0.80 % = 0451032638) LYMPH % (test code = 33.8 % 736-9) MONO % (test code = 13.0 % 5905-5) EOS % (test code = 5.6 % 713-8) BASO % (test code = 0.8 % 706-2) GRAN MAT x10^3(ANC) 2.45 10*3/uL 1.99-6.95 (test code = 0252260439) IMM GRAN x10^3 (test 0.04 10*3/uL 0.00-0.06 code = 4041696316) LYMPH x10^3 (test code 1.80 10*3/uL 1.09-3.23 = 731-0) MONO x10^3 (test code 0.69 10*3/uL 0.36-1.02 = 742-7) EOS x10^3 (test code = 0.30 10*3/uL 0.06-0.53 711-2) BASO x10^3 (test code 0.04 10*3/uL 0.01-0.09 = 704-7) Lab Interpretation Abnormal (test code = 10077-0) [facility]SE ([facility]2020-09-25 21:57:56 Test Item Value Reference Range Interpretation Comments POCT GLU (test code = 8906155540) 73 mg/dL 70-110 Lab Interpretation (test code = Normal 55833-3) [facility] [id number] 17:21:04 Test Item Value Reference Range Interpretation Comments Occult (guaiac) Blood (test code = Negative Negative 2335-8) Lab Interpretation (test code = Normal 81620-5) [facility] GLUCOSE (AUTOMATED)2020-09-25 17:04:59 Test Item Value Reference Range Interpretation Comments POCT GLU (test code = 5827398196) 78 mg/dL 70-110 Lab Interpretation (test code = Normal 74829-0) [facility] GLUCOSE (AUTOMATED)2020-09-25 13:12:39 Test Item Value Reference Range Interpretation Comments POCT GLU (test code = 6392172888) 124 mg/dL 70-110 H Lab Interpretation (test code = Abnormal 10219-4) [facility] [id number] 12:19:15 Test Item Value Reference Range Interpretation Comments NT-proBNP (test code 3460 pg/mL See_Comment H [Autom ated = 1195311685) message] The system which generated this result transmitted reference range : <=125. The reference range was not used to interpret this result as normal/abnormal . DIANE (test code = DIANE) Biotin has been reported to cause a negative bias, interpret results relative to patient's use of biotin. Lab Interpretation Abnormal (test code = 18785-6) [facility] [id number] 12:12:26 Test Item Value Reference Range Interpretation Comments URINE CULTURE (test < 10,000 CFU/mL mixed code = 630-4) aerobic organisms - suggests endogenous microbial contamination [facility] 12:10:34 Test Item Value Reference Range Interpretation Comments MAGNESIUM (test code = 7009666736) 1.8 mg/dL 1.7-2.4 Lab Interpretation (test code = Normal 92094-4) [facility] ([id number])2020-09-25 12:10:19 Test Item Value Reference Range Interpretation Comments NA (test code = 143 mmol/L 135-145 3987461899) K (test code = 3.5 mmol/L 3.5-5.0 5109555214) CL (test code = 108 mmol/L 98-108 7874433602) CO2 TOTAL (test code = 24 mmol/L 23-31 7878092199) AGAP (test code = 2-16 9439825698) BUN (test code = 12 mg/dL 7-23 9183976600) GLUCOSE (test code = 71 mg/dL 70-110 7379855342) CREATININE (test code = 0.79 mg/dL 0.60-1.25 1758513620) TOTAL BILI (test code = 0.8 mg/dL 0.1-1.1 5100315435) CALCIUM (test code = 8.8 mg/dL 8.6-10.6 3661629323) T PROTEIN (test code = 7.0 g/dL 6.3-8.2 8464816788) ALBUMIN (test code = 3.7 g/dL 3.5-5.0 7190226517) ALK PHOS (test code = 198 U/L 34-122 H 5133237699) ALTv (test code = 21 U/L 5-50 1742-6) AST(SGOT) (test code = 39 U/L 13-40 9367077930) eGFR (test code = mL/min/1.73m2 7601149897) DIANE (test code = DIANE) Association of Glomerular Filtration Rate (GFR) and Staging of Kidney Disease* + --+ --+ ------+| GFR (mL/min/1.73 m2) ?| With Kidney Damage ?| ?Without Kidney Damage+ --------+ --------+ +| ?>90 ?| ?Stage one ?| ? Normal ?+ ---+ ---+ -------+| ?60-89 ?| ?Stage two ?| ? Decreased GFR ? + --+ --+ ------+| ?30-59 ?| ?Stage three ?| ? Stage three ? + --+ --+ ------+| ?15-29 ?| ?Stage four ? | ? Stage four ?+ ---+ ---+ -------+| ?<15 (or dialysis) ? ?| ?Stage five ? | ? Stage five ?+ ---+ ---+ -------+ *Each stage assumes the associated GFR level has been in effect for at least three months. ?Stages 1 to 5, with or without kidney disease, indicate chronic kidney disease. Notes: Determination of stages one and two (with eGFR >59mL/min/1.73 m2) requires estimation of kidney damage for at least three months as defined by structural or functional abnormalities of the kidney, manifested by either:Pathological abnormalities or Markers of kidney damage (including abnormalities in the composition of the blood or urine or abnormalities in imaging tests). Lab Interpretation Abnormal (test code = 53214-6) [facility] WITH [id number] 11:35:34 Test Item Value Reference Range Interpretation Comments WBC (test code = See_Comment [Automated 7137-2) message] The sy stem which generated this result transmitted reference range : 4.20 - 10.70 10*3/?L. The reference range was not used to interpret this result as normal/abnormal . RBC (test code = See_Comment L [Automated 772-8) message] The sy stem which generated this result transmitted reference range : 4.26 - 5.52 10*6/?L. The reference range was not used to interpret this result as normal/abnormal . HGB (test code = 9.6 g/dL 12.2-16.4 L 718-7) HCT (test code = 30.4 % 38.4-49.3 L 4544-3) MCV (test code = 85.9 fL 81.7-95.6 787-2) MCH (test code = 27.1 pg 26.1-32.7 785-6) MCHC (test code = 31.6 g/dL 31.2-35.0 786-4) RDW-SD (test code = 61.3 fL 38.5-51.6 H 19356-2) RDW-CV (test code = 19.3 % 12.1-15.4 H 788-0) PLT (test code = See_Comment [Automated 777-3) message] The sy stem which generated this result transmitted reference range : 150 - 328 10*3/ ?L. The reference r batsheva was not used to interpret this result as normal/abnormal . MPV (test code = 10.1 fL 9.8-13.0 85365-8) NRBC/100 WBC (test See_Comment [Automat ed code = 6225185064) message] The system which generated this result transmitted reference range : 0.0 - 10.0 /100 WBCs. The refer ence range was not u sed to interpret th is result as normal/abnormal . NRBC x10^3 (test code <0.01 See_Comment [Auto mated = 0895516128) message] The s ystem which generated this result transmitted reference range : 10*3/?L. The reference range was not used to interpret this result as normal/abnormal . GRAN MAT (NEUT) % 81.4 % (test code = 770-8) IMM GRAN % (test code 0.40 % = 2025949688) LYMPH % (test code = 8.1 % 736-9) MONO % (test code = 7.9 % 5905-5) EOS % (test code = 1.8 % 713-8) BASO % (test code = 0.4 % 706-2) GRAN MAT x10^3(ANC) 7.77 10*3/uL 1.99-6.95 H (test code = 8345450489) IMM GRAN x10^3 (test 0.04 10*3/uL 0.00-0.06 code = 7786187704) LYMPH x10^3 (test code 0.77 10*3/uL 1.09-3.23 L = 731-0) MONO x10^3 (test code 0.75 10*3/uL 0.36-1.02 = 742-7) EOS x10^3 (test code = 0.17 10*3/uL 0.06-0.53 711-2) BASO x10^3 (test code 0.04 10*3/uL 0.01-0.09 = 704-7) Lab Interpretation Abnormal (test code = 58478-0) [facility], [id number] 22:07:45 Test Item Value Reference Range Interpretation Comments VIT B12 (test code = 437 pg/mL 240-930 8564973912) DIANE (test code = DIANE) Biotin has been reported to cause a positive bias, interpret results relative to patient's use of biotin. Lab Interpretation (test Normal code = 41249-4) [facility]2020-[facility] 21:24:02 Test Item Value Reference Range Interpretation Comments POCT GLU (test code = 9296221042) 107 mg/dL 70-110 Lab Interpretation (test code = Normal 30110-3) [facility] CenterF[facility] PATH[facility] BY [id number] 19:46:36 Test Item Value Reference Range Interpretation Comments Campylobacter (jejuni, Negative Negative, coli and upsaliensis) Indeterminate, (test code = 42245-5) See comment Plesiomonas shigelloides Negative Negative, (test code = 04657-7) Indeterminate, See comment Salmonella (test code = Negative Negative, 21612-5) Indeterminate, See comment Yersinia enterocolitica Negative Negative, (test code = 31852-2) Indeterminate, See comment Vibrio (test code = Negative Negative, 88079-0) Indeterminate, See comment Vibrio cholerae (test Negative Negative, code = 93835-8) Indeterminate, See comment Enteroaggregative E. coli Negative Negative, (EAEC) (test code = Indeterminate, 30929-6) See comment Enteropathogenic E. coli Negative Negative, N/A, (EPEC) (test code = Indeterminate, 18049-7) See comment Enterotoxigenic E. coli Negative Negative, (ETEC) (test code = Indeterminate, 08072-4) See comment Shiga toxin-Producing E. Negative Negative, coli (STEC) (test code = Indeterminate, 55591-0) See comment Shigella/Enteroinvasive Negative Negative, E. coli (EIEC) (test code Indeterminate, = 33699-2) See comment Cryptosporidium (test Negative Negative, code = 97374-7) Indeterminate, See comment Cyclospora cayetanensis Negative Negative, (test code = 62814-6) Indeterminate, See comment Entamoeba histolytica Negative Negative, (test code = 16487-4) Indeterminate, See comment Giardia lamblia (test Negative Negative, code = 37034-8) Indeterminate, See comment Adenovirus F 40/41 (test Negative Negative, code = 72091-2) Indeterminate, See comment Astrovirus (test code = Negative Negative, 01464-9) Indeterminate, See comment Norovirus GI/GII (test Negative Negative, code = 71763-5) Indeterminate, See comment Rotavirus A (test code = Negative Negative, 61457-6) Indeterminate, See comment Sapovirus (test code = Negative Negative, 72548-3) Indeterminate, See comment DIANE (test code = DIANE) Negative:A negative result does not rule-out infection. ?This assay does not test for all potential infectious agents of diarrheal disease. Positive:A positive test result does not necessarily indicate the presence of viable organism. Lab Interpretation (test Normal code = 95476-0) [facility] [id number] 19:30:50 Test Item Value Reference Range Interpretation Comments Fecal Leukocytes (test code = Negative Negative 5277690370) Lab Interpretation (test code = Normal 58591-0) [facility] CenterCLOSTRIDIUM DIFFICILE [id number] 17:27:30 Test Item Value Reference Range Interpretation Comments Clostridioides (Clostridium) Negative Negative difficile (test code = 07407-7) Lab Interpretation (test code = Normal 85572-7) [facility]2020-[facility]24 17:06:38 Test Item Value Reference Range Interpretation Comments POCT GLU (test code = 6742674531) 81 mg/dL 70-110 Lab Interpretation (test code = Normal 26718-5) [facility] CenterPROCALCITONIN2021-05-06 17:00:06 Test Item Value Reference Range Interpretation Comments Procalcitonin (test 0.02 ng/mL <0.07 code = 5644462747) DIANE (test code = DIANE) INTERPRETATION OF PROCALCITONIN RESULTS IN ADULTS >= 18 YEARS OF AGE Initiation and discontinuation of antibiotics on patients with suspected or confirmed Lower Respiratory Tract Infection in Adults >= 18 years of age. + +-------- --------+ + -----+|Procalcitonin |Interpretation ?|Antibiotic ? ? |Considerations ? |ng/mL ? | ?|recommendation | ? + +-------- --------+ + -----+| <0.1 ? | Bacterial ? ? ?| Strongly ? ? ?| ? | ?| infection very | discouraged ? | Overruling: ? | ?| unlikely ? ? ? | ? | ? Clinically unstable ? ? ? + +-------- --------+ + ? High risk for adverse ? ? | <0.25 ?| Bacterial ? ? ?| Discouraged ? | ? outcome ? | ?| infection ? ? ?| ? | ? SEE IMPORTANT NOTE ?| ?| unlikely ? ? ? | ? | ? + +-------- --------+ + -----+| >=0.25 ? ? ? | Bacterial ? ? ?| Encouraged ? ?| ? | ?| infection ? ? ?| ? | ? | ?| likely ? | ? | Consider treatment failure ?+ +------- ---------+ -+ if levels does not decrease | >0.5 ? | Bacterial ? ? ?| Strongly ? ? ?| appropriately ? | ?| infection very | encouraged ? ?| ? | ?| likely ? | ? | ? + +-------- --------+ + -----+ Discontinuation of antibiotics in high-acuity patients with suspected or confirmed sepsis in Adults >= 18 years of age. + +-------- --------+ + -----+|Procalcitonin |Interpretation ?|Antibiotic ? ? |Considerations ? |ng/mL ? | ?|recommendation | ? + +-------- --------+ + -----+| <0.25 ?| Bacterial ? ? ?| Strongly ? ? ?| ? | ?| infection very | discouraged ? | Overruling: ? | ?| unlikely ? ? ? | ? | ? Clinically unstable ? ? ? + +-------- --------+ + ? High risk for adverse ? ? | <0.5 or drop | Bacterial ? ? ?| Discouraged ? | ? outcome ? | >80% from ? ?| infection ? ? ?| ? | ? SEE IMPORTANT NOTE ?| highest PCT ?| unlikely ? ? ? | ? | ? | level ?| ?| ? | ? + +-------- --------+ + -----+| >=0.5 ?| Bacterial ? ? ?| Encouraged ? ?| ? | ?| infection ? ? ?| ? | ? | ?| likely ? | ? | Consider treatment failure ?+ +------- ---------+ -+ if levels does not decrease | >1.0 ? | Bacterial ? ? ?| Strongly ? ? ?| appropriately ? | ?| infection very | encouraged ? ?| ? | ?| likely ? | ? | ? + +-------- --------+ + -----+ Percentage of drop of Procalcitonin calculation for Discontinuation of antibiotics in high-acuity patients with suspected or confirmed sepsis in Adults >= 18 years of age. ? Procalcitonin highest{}-Procalcitonin current{}Delta Procalcitonin = x100% ? Procalcitonin current {} IMPORTANT NOTE: Procalcitonin may be elevated without bacterial infection by physiologic stress related to trauma, lombardo, chronic dialysis, metastatic cancer, surgery in the past seven days, malaria, some fungal infections, and some forms of vasculitis. The interpretation algorithm may not apply to patients with immunosuppression (equivalent of >10 mg of prednisone daily), HIV with CD4 cell count < 350 cells/mm3, active malignancy on systemic chemotherapy, solid organ transplant or hematopoietic stem cell transplantation, or hospital acquired pneumonia. Additionally, some clinical trials of procalcitonin have excluded patients with shock requiring vasopressor use, acute respiratory failure requiring mechanical ventilation, or those with known lung abscess/empyema. For further information please refer to:[email or web address] Lab Interpretation Normal (test code = 37528-0) [facility] D, [id number] 16:58:53 Test Item Value Reference Range Interpretation Comments VIT D 25OH (test code = 13 ng/mL 25-80 L 72571-6) DIANE (test code = DIANE) Deficiency: <20 ng/mLInsufficiency: 20-24 ng/mLOptimal: 25-80 ng/mL Lab Interpretation (test Abnormal code = 78647-9) [facility]2020-[facility]-24 12:54:33 Test Item Value Reference Range Interpretation Comments POCT GLU (test code = 6069547643) 106 mg/dL 70-110 Lab Interpretation (test code = Normal 43837-9) [facility] CenterTROPONIN [id number] 12:23:41 Test Item Value Reference Range Interpretation Comments TROPONIN I (test 0.026 ng/mL See_Comment [Automated code = 7503821251) message] The system which generated this result transmitted reference range : <=0.034. The reference range was not used to interpret this result as normal/abnormal . DIANE (test code = Equal or Less than DIANE) 0.034 ng/ml---Normal ?Note: Cardiac troponin begins to rise 3-4 hours after the onset of ischemia. Repeat in 4-6 hours if the sample was drawn within 3-4 hours of the onset of the symptom and found normal. Between 0.035 and 0.120 ng/mL--- Borderline. Questionable myocardial injury or necrosis ? ?Note: Serial measurement may be necessary to confirm or exclude the diagnosis of myocardial injury or necrosis; Clinical correlation (symptoms, EKGs, imaging studies, and others) required; Repeat in 4-6 hours if clinically indicated. ? Equal or Higher than 0.121 ng/mL---Abnormal. Myocardial Injury or Necrosis Likely ? Biotin has been reported to cause a negative bias, interpret results relative to patient's use of biotin. ? Lab Interpretation Normal (test code = 33463-6) [facility]AL [id number] 12:20:44 Test Item Value Reference Range Interpretation Comments NT-proBNP (test code 5200 pg/mL See_Comment H [Autom ated = 0804086436) message] The system which generated this result transmitted reference range : <=125. The reference range was not used to interpret this result as normal/abnormal . DIANE (test code = DIANE) Biotin has been reported to cause a negative bias, interpret results relative to patient's use of biotin. Lab Interpretation Abnormal (test code = 49202-6) [facility] CenterCOMP[facility] METABOLIC PANEL ([id number])2020-09-24 12:13:01 Test Item Value Reference Range Interpretation Comments NA (test code = 142 mmol/L 135-145 7301738522) K (test code = 3.8 mmol/L 3.5-5.0 3219815919) CL (test code = 111 mmol/L 98-108 H 9645254959) CO2 TOTAL (test code = 22 mmol/L 23-31 L 0645713510) AGAP (test code = 2-16 6472394062) BUN (test code = 10 mg/dL 7-23 4781359062) GLUCOSE (test code = 109 mg/dL 70-110 6868704141) CREATININE (test code = 0.66 mg/dL 0.60-1.25 5539160386) TOTAL BILI (test code = 1.2 mg/dL 0.1-1.1 H 8831651260) CALCIUM (test code = 8.9 mg/dL 8.6-10.6 0003503747) T PROTEIN (test code = 6.9 g/dL 6.3-8.2 7046624309) ALBUMIN (test code = 3.7 g/dL 3.5-5.0 8031288818) ALK PHOS (test code = 133 U/L 34-122 H 5645598470) ALTv (test code = 11 U/L 5-50 1742-6) AST(SGOT) (test code = 30 U/L 13-40 4871667650) eGFR (test code = mL/min/1.73m2 2082875969) DIANE (test code = DIANE) Association of Glomerular Filtration Rate (GFR) and Staging of Kidney Disease* + --+ --+ ------+| GFR (mL/min/1.73 m2) ?| With Kidney Damage ?| ?Without Kidney Damage+ --------+ --------+ +| ?>90 ?| ?Stage one ?| ? Normal ?+ ---+ ---+ -------+| ?60-89 ?| ?Stage two ?| ? Decreased GFR ? + --+ --+ ------+| ?30-59 ?| ?Stage three ?| ? Stage three ? + --+ --+ ------+| ?15-29 ?| ?Stage four ? | ? Stage four ?+ ---+ ---+ -------+| ?<15 (or dialysis) ? ?| ?Stage five ? | ? Stage five ?+ ---+ ---+ -------+ *Each stage assumes the associated GFR level has been in effect for at least three months. ?Stages 1 to 5, with or without kidney disease, indicate chronic kidney disease. Notes: Determination of stages one and two (with eGFR >59mL/min/1.73 m2) requires estimation of kidney damage for at least three months as defined by structural or functional abnormalities of the kidney, manifested by either:Pathological abnormalities or Markers of kidney damage (including abnormalities in the composition of the blood or urine or abnormalities in imaging tests). Lab Interpretation Abnormal (test code = 57230-1) [facility] WITH [id number] 11:45:37 Test Item Value Reference Range Interpretation Comments WBC (test code = See_Comment [Automated 9662-2) message] The sy stem which generated this result transmitted reference range : 4.20 - 10.70 10*3/?L. The reference range was not used to interpret this result as normal/abnormal . RBC (test code = See_Comment L [Automated 419-8) message] The sy stem which generated this result transmitted reference range : 4.26 - 5.52 10*6/?L. The reference range was not used to interpret this result as normal/abnormal . HGB (test code = 9.7 g/dL 12.2-16.4 L 718-7) HCT (test code = 30.7 % 38.4-49.3 L 4544-3) MCV (test code = 85.5 fL 81.7-95.6 787-2) MCH (test code = 27.0 pg 26.1-32.7 785-6) MCHC (test code = 31.6 g/dL 31.2-35.0 786-4) RDW-SD (test code = 62.0 fL 38.5-51.6 H 68673-5) RDW-CV (test code = 19.8 % 12.1-15.4 H 788-0) PLT (test code = See_Comment [Automated 777-3) message] The sy stem which generated this result transmitted reference range : 150 - 328 10*3/ ?L. The reference r batsheva was not used to interpret this result as normal/abnormal . MPV (test code = 10.8 fL 9.8-13.0 97740-2) NRBC/100 WBC (test See_Comment [Automat ed code = 4218337534) message] The system which generated this result transmitted reference range : 0.0 - 10.0 /100 WBCs. The refer ence range was not u sed to interpret th is result as normal/abnormal . NRBC x10^3 (test code <0.01 See_Comment [Auto mated = 4127855829) message] The s ystem which generated this result transmitted reference range : 10*3/?L. The reference range was not used to interpret this result as normal/abnormal . GRAN MAT (NEUT) % 57.2 % (test code = 770-8) IMM GRAN % (test code 0.40 % = 2140958236) LYMPH % (test code = 25.9 % 736-9) MONO % (test code = 10.3 % 5905-5) EOS % (test code = 5.4 % 713-8) BASO % (test code = 0.8 % 706-2) GRAN MAT x10^3(ANC) 2.96 10*3/uL 1.99-6.95 (test code = 9399453283) IMM GRAN x10^3 (test <0.03 0.00-0.06 code = 4106767225) LYMPH x10^3 (test code 1.34 10*3/uL 1.09-3.23 = 731-0) MONO x10^3 (test code 0.53 10*3/uL 0.36-1.02 = 742-7) EOS x10^3 (test code = 0.28 10*3/uL 0.06-0.53 711-2) BASO x10^3 (test code 0.04 10*3/uL 0.01-0.09 = 704-7) Lab Interpretation Abnormal (test code = 54130-2) [facility] CenterSEDIMENTATION [id number] 04:34:43 Test Item Value Reference Range Interpretation Comments ESR (test code = See_Comment H [Automated message] 0771534182) The system [employer] generated this result transmitted ref erence range: 0 - 10 m m/HR. The reference r batsheva was not used to interpret this result as normal/abnor mal. Lab Interpretation (test Abnormal code = 30727-8) [facility]TR[facility] [id number] 04:15:11 Test Item Value Reference Range Interpretation Comments TROPONIN I (test 0.020 ng/mL See_Comment [Automated code = 7262734795) message] The system which generated this result transmitted reference range : <=0.034. The reference range was not used to interpret this result as normal/abnormal . DIANE (test code = Equal or Less than DIANE) 0.034 ng/ml---Normal ?Note: Cardiac troponin begins to rise 3-4 hours after the onset of ischemia. Repeat in 4-6 hours if the sample was drawn within 3-4 hours of the onset of the symptom and found normal. Between 0.035 and 0.120 ng/mL--- Borderline. Questionable myocardial injury or necrosis ? ?Note: Serial measurement may be necessary to confirm or exclude the diagnosis of myocardial injury or necrosis; Clinical correlation (symptoms, EKGs, imaging studies, and others) required; Repeat in 4-6 hours if clinically indicated. ? Equal or Higher than 0.121 ng/mL---Abnormal. Myocardial Injury or Necrosis Likely ? Biotin has been reported to cause a negative bias, interpret results relative to patient's use of biotin. ? Lab Interpretation Normal (test code = 76358-0) [facility] CenterIRON [id number] 04:09:49 Test Item Value Reference Range Interpretation Comments IRON (test code = 1830531755) 67 ug/dL 50-160 TIBC (test code = 0433727887) 332 ug/dL 250-410 % FE SAT (test code = 8496806471) 20 % 20-50 Lab Interpretation (test code = Normal 30089-9) [facility] CenterGLYCOSYLATED HEMOGLOBIN (A1C)2020-09-24 03:33:55 Test Item Value Reference Range Interpretation Comments HGB A1C (test code = 6.6 % 4.0-5.7 H 4548-4) DIANE (test code = DIANE) Reference RangesNormal: <5.7%Prediabetes: 5.7 - 6.4%Diabetes: > 6.5% Lab Interpretation (test Abnormal code = 30931-8) [facility] CenterURIC [id number] 03:28:24 Test Item Value Reference Range Interpretation Comments URIC ACID (test code = 6960482746) 8.0 mg/dL 3.6-8.0 Lab Interpretation (test code = Normal 34404-2) [facility] CenterTHYROID STIMULATING [id number] 03:28:19 Test Item Value Reference Range Interpretation Comments TSH (test code = See_Comment Biotin has been [id number]) reported to cau se a negative bias, interpret resul ts relative to pat ient's use of biotin. [Automated mess age] The system [employer] generated this result transmitted ref erence range: 0.45 - 4 .70 mIU/L. The refe rence range was not u sed to interpret this result as normal/abnor mal. Lab Interpretation (test Normal code = 36762-3) [facility] CenterPHOSPHORUS2021-05-06 03:28:09 Test Item Value Reference Range Interpretation Comments PHOSPHORUS (test code = 9630078875) 4.4 mg/dL 2.5-5.0 Lab Interpretation (test code = Normal 04006-1) [facility] CenterMAGNESIUM2021-05-06 03:28:03 Test Item Value Reference Range Interpretation Comments MAGNESIUM (test code = 8058344715) 2.0 mg/dL 1.7-2.4 Lab Interpretation (test code = Normal 94296-7) [facility] CenterFERRITIN [id number] 03:27:53 Test Item Value Reference Range Interpretation Comments FERRITIN (test code = 66.7 ng/mL 18.0-464.0 5087469565) DIANE (test code = DIANE) Biotin has been reported to cause a negative bias, interpret results relative to patient's use of biotin. Lab Interpretation (test Normal code = 68203-6) [facility] CenterCREATINE [id number] 03:27:43 Test Item Value Reference Range Interpretation Comments CK (test code = 6138910676) 63 U/L 33-194 Lab Interpretation (test code = Normal 26111-1) [facility] CenterLIPID PANEL (42996)(TOTAL CHOLESTEROL, TRIGLYCERIDES, HDL)2020-09-24 02:30:13 Test Item Value Reference Range Interpretation Comments CHOL (test code = 180 mg/dL 120-200 6546743372) HDL (test code = 28 mg/dL >40 L 7060246685) HDLC RATIO (test code = See_Comment H [Au tomated message] 7113404076) The system [employer] generated this result transmit ludmila reference range : <=5.0. The refe rence range was not u sed to interpret th is result as normal/abnormal . TRIG (test code = 152 mg/dL 30-170 1404011926) LDL CHOL (test code = 122 mg/dL See_Comment [Auto mated message] 29979-9) The system [employer] generated this result transmit ludmila reference range : <=160. The refe rence range was not u sed to interpret th is result as normal/abnormal . VLDL (test code = 30 mg/dL 5-60 8205421149) Lab Interpretation (test Abnormal code = 78553-6) [facility] CenterPOCT GLUCOSE (AUTOMATED)2020-09-24 01:29:04 Test Item Value Reference Range Interpretation Comments POCT GLU (test code = 3051759004) 137 mg/dL 70-110 H Lab Interpretation (test code = Abnormal 38434-3) [facility] CenterCritical [id number] 23:17:14Siva Can MD ? ? 09/23/2020 ?6:17 PMCritical CarePerformed by: Siva Can MDAuthorized by: Siva Can MD Critical care provider statement: ?Critical care time (minutes): ?30 ?Critical care was necessary to treat or prevent imminent or life-threatening deterioration of the following conditions: ?Cardiac failure ?Critical care was time spent personally by me on the following activities: ?Ordering and performing treatments and interventions, ordering and review of laboratory studies,ordering and review of radiographic studies, pulse oximetry, re-evaluation of patient's condition and evaluation of patient's response to treatmentUnCHI St. [facility] HospitalCT abdomen pelvis with [id number] 23:13:39 1. ?Thickening of the urinary bladder, favoring the anterior wall. Findingsare new from 10/2019. Direct visualization is recommended in the setting ofgross hematuria. Correlation with urinalysis is recommended. 2. ?Nonobstructive bowel gas pattern. Air-fluid levels in loops of smallbowel suggest delayed transit. 3. ?Right common femoral arteriovenous fistula, unchanged. 4. ?Large bilateral pleural effusions with compressive atelectasis, bettercharacterized on recent CT chest. 5. ?Cholecystectomy with prominent common bile duct, likely reservoirphenomena. Preliminary Report Dictated by Resident: Devin Domingo ?MD Daniel., have reviewed this study and agree withthe above report.EXAM: CT ABDOMEN AND PELVIS WITH CONTRAST HISTORY: 60-year-old male with groin pain, constipation, bloodin stool COMPARISON: 11/17/2019. DOSE: Total exam DLP 729 mGy-cm TECHNIQUE AND FINDINGS: Contiguous axial imaging was performed from thelung bases to the proximal femurs after the administration of intravenousOmnipaque contrast in the portal venous phase. Coronal and sagittalreconstructions were obtained. FINDINGS: LOWER THORAX: Large volume bilateral pleural effusions with associatedcompressive atelectasis and adjacent ground glass opacities likelyrepresenting pulmonary alveolar edema. Please refer to the concurrentlyobtained, separately dictated, CT thorax report for detailed intrathoracicfindings. LIVER: No focal hepatic lesions. Normal liver contour. Low parenchymalattenuation consistent with s teatosis. No intrahepatic ductal dilatation.The portal veins are patent. GALLBLADDER AND BILIARY TREE: No biliary ductal dilation. Status postcholecystectomy. The common bile duct is prominent. SPLEEN:No splenomegaly. PANCREAS: No ductal dilation. ADRENAL GLANDS: No adrenal nodules. KIDNEYS: No hydronephrosis or stones. A left inferior pole cyst measures upto 2.4 cm. PERITONEUM AND RETROPERITONEUM: No free air or free fluid. LYMPH NODES: No enlarged lymphadenopathy. GI TRACT: No bowel dilatation orabnormal wall thickening. Air-fluid levelsin loops of small bowel suggest ileus. The sigmoid colon is redundant. Gasand stool fill the rectal vault. The appendix is nondilated (2:114). PELVIS/BLADDER: Urinary bladder wall thickening, predominantly along theanterior wall. It is similar compared to prior exams. VESSELS: Moderate diffuse atherosclerosis. Early filling of the rightcommon femoral vein with retrograde opacification of its tributariessuggest arteriovenous fistula (2:151). Surgical clips project over theright inguinal region, consistent with prior surgery. BONES AND SOFT TISSUES: No suspicious lytic or sclerotic bone lesions.Changes of L4-L5 fusion laminectomy. Moderate thoracolumbar facetarthropathy with prominent syndesmophytes. Bilateral iliac bone grafts arepresent at the anterior superior iliac spines. [facility], Radiant Results Inft User - 09/23/2020 6:14 PM CDTEXAM: CT ABDOMEN AND PELVIS WITH CONTRASTHISTORY: 60-year-old male with groin pain, constipation, blood in stoolCOMPARISON: 11/17/2019.DOSE: Total exam DLP 729 mGy-cmTECHNIQUE AND FINDINGS: Contiguous axial imaging was performed from thelung bases to the proximal femurs after the administration of intravenousOmnipaque contrast in the portal venous phase. Coronal and sagittalreconstructions were obtained.FINDINGS:LOWER THORAX: Large volume bilateral pleural effusions with associatedcompressive atelectasis and adjacent groundglass opacities likelyrepresenting pulmonary alveolar edema. Please refer to the concurrentlyobtained, separately dictated, CT thorax report for detailed intrathoracicfindings. LIVER: No focal hepatic lesions. Normal liver contour. Low parenchymalattenuation consistent with steatosis. No intrahepatic ductal dilatation.The portal veins are patent.GALLBLADDER AND BILIARY TREE: No biliary ductal dilation. Status postcholecystectomy. The common bile duct is prominent.SPLEEN: No splenomegaly.PANCREAS: Noductal dilation.ADRENAL GLANDS: No adrenal nodules.KIDNEYS: No hydronephrosis or stones. A left inferior pole cyst measures upto 2.4 cm.PERITONEUM AND RETROPERITONEUM: No free air or free fluid.LYMPH NODES: No enlarged lymphadenopathy.GI TRACT: No bowel dilatation or abnormal wall thickening. Air-fluid levelsin loops of small bowel suggest ileus. The sigmoid colon is redundant. Gasand stool fill the rectal vault. The appendix is nondilated (2:114).PELVIS/BLADDER: Urinary bladder wall thickening, pred ominantly along theanterior wall. It is similar compared to prior exams.VESSELS: Moderate diffuse atherosclerosis. Early filling of the rightcommon femoral vein with retrograde opacification of its tributariessuggest arteriovenous fistula (2:151). Surgical clips project over theright inguinal region, consistent with prior surgery.BONES AND SOFT TISSUES: No suspicious lytic or sclerotic bone lesions.Changes of L4-L5 fusion laminectomy. Moderate thoracolumbar facetarthropathy with prominent syndesmophytes. Bilateral iliac bone grafts arepresent at the anterior superior iliac spines.IMPRESSION1. Thickening of the urinary bladder, favoring the anterior wall. Findingsare new from 10/2019. Direct visualization is recommended in the setting ofgross hematuria. Correlation with urinalysis is recommended.2. Nonobstructive bowel gas pattern. Air-fluid levels in loops of smallbowel suggest delayed transit.3. Right common femoral arteriovenous fistula, unchanged.4. Large bilateral pleural effusions with c ompressive atelectasis, bettercharacterized on recent CT chest.5. Cholecystectomy with prominent common bile duct, likely reservoirphenomena.Preliminary Report Dictated by Resident: Arleth Abbott, Devin Sanchez MD., have reviewed this study and agree withthe above report. [facility] CenterCT thorax with [id number] 22:58:21 1. ?No evidence of pulmonary embolism in the main pulmonary trunk versusproximal segmental levels. 2. ?Large bilateral pleural effusions with associated compressiveatelectasis at the lung bases. Groundglass opacities at the lung bases mayrepresent pulmonary alveolar edema. 3. ?Changes of CABG with unchanged fractured superior medial sternotomywire. Preliminary Report Dictated by Resident: Devin Domingo ?MD Daniel., have reviewed this study and agree withthe above report.PROCEDURE: CT ANGIO CHEST WITH CONTRAST - PE PROTOCOL CLINICAL INDICATION: Cough, persistent Interstitial lung disease ? COMPARISON: Radiograph dated 09/23/2020. DOSE: 729 mGy-cm TECHNIQUE AND FINDINGS: A helical CT scan was performed and reconstructedusing 1.25 mm slice thickness from the lung bases through the apices afterthe uncomplicated administration of 120 cc of intravenous Omnipaquecontrast. Sagittal and coronal reconstructions, and axial maximum intensityprojections were generated and reviewed to further define anatomy andpossible pathology. (DFOV = 729 cm) FINDINGS: PULMONARY ARTERIES: Technicallyadequate enhancement of the pulmonaryarteries reveals no pulmonary embolism in the main pulmonary trunk andproximal segmental levels. LINES AND TUBES: None LOWER NECK/THYROID: The visualized portions of thyroid gland are normal. LUNGS: Compressive bibasilar atelectasis with nonspecific groundglassopacities at the lung bases. No focal lesions identified. PLEURA: Large bilateral pleural effusions with adjacent compressiveatelectasis CENTRAL AIRWAY: No bronchiectasis, mucus plugging, or bronchial wallthickening. MEDIASTINUM: No mediastinal lymphadenopathy. Changes of CABG are noted. Nopericardial effusion. Left chest wall pacemaker device leads terminate inthe right atrium and right ventricle. Fractured superior sternotomy wireappears unchanged since 2019 AORTA AND GREAT VESSELS: The visualized portions of the aorta are normal incaliber. Mild calcified and noncalcified atherosclerotic disease is presentat the aortic arch. A metallic stent is visualized in the left subclavianartery. BONES AND SOFT TISSUES: No suspicious lytic or blastic skeletal lesions. VISUALIZED UPPER ABDOMEN: Cholecystectomy clips are visualized. The commonbile duct is prominent, likely related to reservoir phenomena. [facility], Radiant Results Inft User - 09/23/2020 6:06 PM CDTPROCEDURE: CT ANGIO CHEST WITH CONTRAST - PE PROTOCOLCLINICAL INDICATION: Cough, persistent Interstitial lung disease COMPARISON: Radiograph dated 09/23/2020.DOSE: 729 mGy- cmTECHNIQUE AND FINDINGS: A helical CT scan was performed and reconstructedusing 1.25 mm slice thickness from the lung bases through the apices afterthe uncomplicated administration of 120 cc of intravenous Omnipaquecontrast. Sagittal and coronal reconstructions, and axial maximum intensityprojections were generated and reviewed to further define anatomy andpossible pathology. (DFOV = 729 cm)FINDINGS: PULMONARY ARTERIES: Technically adequate enhancement of the pulmonaryarteries reveals no pulmonary embolism in the main pulmonary trunk andproximal segmental levels.LINES AND TUBES:NoneLOWER NECK/THYROID: The visualized portions of thyroid gland are normal.LUNGS: Compressive bibasilar atelectasis with nonspecific groundglassopacities at the lung bases. No focal lesions identified.PLEURA: Large bilateral pleural effusions with adjacent compressiveatelectasisCENTRAL AIRWAY: No bronchiectasis, mucus plugging, or bronchial wallthickening.MEDIASTINUM: No mediastinal lymphadenopathy.Changes of CABG are noted. Nopericardial effusion. Left chest wall pacemaker device leads terminate inthe right atrium and right ventricle. Fractured superior sternotomy wireappears unchanged since 2018AORTA AND GREAT VESSELS: The visualized portions of the aorta are normal incaliber. Mild calcified and noncalcified atherosclerotic disease is presentat the aortic arch. A metallic stent is visualized in the left subclavianartery.BONES AND SOFT TISSUES: No suspicious lytic or blastic skeletal lesions.VISUALIZED UPPER ABDOMEN: Cholecystectomy clips are visualized. The commonbile duct is prominent, likely related to reservoir phenomena.IMPRESSION1. No evidence of pulmonary embolism in the main pulmonary trunk versusproximal segmental levels.2. Large bilateral pleural effusions with associated compressiveatelectasis at the lung bases. Groundglass opacities at the lung bases mayrepresent pulmonary alveolar edema.3. Changes of CABG with unchanged fractured superior medial sternotomywire.PreliminaryReport Dictated by Resident: Arleth Abbott, Devin Sanchez MD., have reviewed this study and agree withthe above report.[facility] [id number] 21:00:34 Test Item Value Reference Range Interpretation Comments APPEARANCE (test code = Hazy Clear A 1103377586) COLOR (test code = Zoë Yellow A 4950571629) PH (test code = 4.8-8.0 7261053702) SP GRAVITY (test code = 1.003-1.030 9046090242) GLU U QUAL (test code = 50 mg/dL Normal A 3297190576) BLOOD (test code = 1+ Negative A 9046463643) KETONES (test code = Negative Negative 0315366591) PROTEIN (test code = 500 mg/dL Negative A 2887-8) UROBILIN (test code = 4.0 mg/dL Normal A 2472557769) BILIRUBIN (test code = Negative Negative 6110360186) NITRITE (test code = Negative Negative 4166541180) LEUK PETER (test code = Negative Negative 6962397672) RBC/HPF (test code = See_Comment [Autom ated message] 6602239851) The system [employer] generated this result transmit ludmila reference range : 0 - 3 HPF. The refe rence range was not u sed to interpret th is result as normal/abnormal . WBC/HPF (test code = See_Comment [Autom ated message] 8419657447) The system [employer] generated this result transmit ludmila reference range : 0 - 5 HPF. The refe rence range was not u sed to interpret th is result as normal/abnormal . BACTERIA (test code = Few Negative A 3146079737) MUCOUS (test code = Slight Negative LPF A 6228445752) SQ EPITH (test code = <1 HPF 4381268585) HYAL CAST (test code = See_Comment [Aut omated message] 9769914928) The system [employer] generated this result transmit ludmila reference range : <=2 LPF. The refere nce range was not u sed to interpret th is result as normal/abnormal . Lab Interpretation (test Abnormal code = 73675-7) [facility] CenterRaven [id number] 20:26:45 Test Item Value Reference Range Interpretation Comments TROPONIN I (test 0.013 ng/mL See_Comment [Automated code = 3832088687) message] The system which generated this result transmitted reference range : <=0.034. The reference range was not used to interpret this result as normal/abnormal . DIANE (test code = Equal or Less than DIANE) 0.034 ng/ml---Normal ?Note: Cardiac troponin begins to rise 3-4 hours after the onset of ischemia. Repeat in 4-6 hours if the sample was drawn within 3-4 hours of the onset of the symptom and found normal. Between 0.035 and 0.120 ng/mL--- Borderline. Questionable myocardial injury or necrosis ? ?Note: Serial measurement may be necessary to confirm or exclude the diagnosis of myocardial injury or necrosis; Clinical correlation (symptoms, EKGs, imaging studies, and others) required; Repeat in 4-6 hours if clinically indicated. ? Equal or Higher than 0.121 ng/mL---Abnormal. Myocardial Injury or Necrosis Likely ? Biotin has been reported to cause a negative bias, interpret results relative to patient's use of biotin. ? Lab Interpretation Normal (test code = 69256-8) [facility] CenterN-TERMINAL [id number] 20:23:45 Test Item Value Reference Range Interpretation Comments NT-proBNP (test code 4190 pg/mL See_Comment H [Autom ated = 6819957715) message] The system which generated this result transmitted reference range : <=125. The reference range was not used to interpret this result as normal/abnormal . DIANE (test code = DIANE) Biotin has been reported to cause a negative bias, interpret results relative to patient's use of biotin. Lab Interpretation Abnormal (test code = 37455-5) [facility] CenterType and Screen - ONCE [id number] 20:20:12 Test Item Value Reference Range Interpretation Comments ABO & RH (test code O Positive Performe d at [facility] = 20) Laboratory [facility] [address] [place] [address] Free: [phone] A No. [id number] IAT (test code = Negative Performed a t [facility] 1185) Laboratory [facility] [address] [place], [place] [id number] Free: [phone] A No. [id number] [facility] CenterHepatic Function Panel (ALB, T.PRO, BILI T, BU/BC, ALT, AST, ALK PHOS)2020-09-23 20:15:06 Test Item Value Reference Range Interpretation Comments TOTAL BILI (test code = 2301662760) 0.8 mg/dL 0.1-1.1 BILI UNCON (test code = 9621785236) 0.5 mg/dL 0.1-1.1 BILI CONJ (test code = 0956368523) 0.0 mg/dL 0.0-0.3 T PROTEIN (test code = 5381540870) 6.8 g/dL 6.3-8.2 ALBUMIN (test code = 7195616750) 3.7 g/dL 3.5-5.0 ALK PHOS (test code = 9384916042) 115 U/L 34-122 ALTv (test code = 1742-6) 10 U/L 5-50 AST(SGOT) (test code = 8714474664) 20 U/L 13-40 Lab Interpretation (test code = Normal 31935-2) [facility] Metabolic Panel (NA, K, CL, CO2, GLUCOSE, BUN, CREATININE, CA)2020-09-23 20:14:46 Test Item Value Reference Range Interpretation Comments NA (test code = 141 mmol/L 135-145 3312836777) K (test code = 3.6 mmol/L 3.5-5.0 4107563962) CL (test code = 112 mmol/L 98-108 H 3498035960) CO2 TOTAL (test code = 20 mmol/L 23-31 L 1910027539) AGAP (test code = 2-16 3576655846) BUN (test code = 11 mg/dL 7-23 5458170397) GLUCOSE (test code = 159 mg/dL 70-110 H 5927506349) CREATININE (test code = 0.63 mg/dL 0.60-1.25 7784926713) CALCIUM (test code = 8.5 mg/dL 8.6-10.6 L 9285968835) eGFR (test code = mL/min/1.73m2 7362526483) DIANE (test code = DIANE) Association of Glomerular Filtration Rate (GFR) and Staging of Kidney Disease* + --+ --+ ------+| GFR (mL/min/1.73 m2) ?| With Kidney Damage ?| ?Without Kidney Damage+ --------+ --------+ +| ?>90 ?| ?Stage one ?| ? Normal ?+ ---+ ---+ -------+| ?60-89 ?| ?Stage two ?| ? Decreased GFR ? + --+ --+ ------+| ?30-59 ?| ?Stage three ?| ? Stage three ? + --+ --+ ------+| ?15-29 ?| ?Stage four ? | ? Stage four ?+ ---+ ---+ -------+| ?<15 (or dialysis) ? ?| ?Stage five ? | ? Stage five ?+ ---+ ---+ -------+ *Each stage assumes the associated GFR level has been in effect for at least three months. ?Stages 1 to 5, with or without kidney disease, indicate chronic kidney disease. Notes: Determination of stages one and two (with eGFR >59mL/min/1.73 m2) requires estimation of kidney damage for at least three months as defined by structural or functional abnormalities of the kidney, manifested by either:Pathological abnormalities or Markers of kidney damage (including abnormalities in the composition of the blood or urine or abnormalities in imaging tests). Lab Interpretation Abnormal (test code = 91030-3) [facility] CenterLipase [id number] 20:14:46 Test Item Value Reference Range Interpretation Comments LIPASE (test code = 1759399151) 59 U/L 0-220 Lab Interpretation (test code = Normal 03820-3) [facility] CenterCOVID-19 (ID NOW RAPID TESTING)2020-09-23 20:02:44 Test Item Value Reference Range Interpretation Comments SARS-CoV-2 Rapid ID NOW Not Detected Not Detected (test code = 28356-8) DIANE (test code = DIANE) ID NOW COVID-19 Assay is an isothermal nucleic acid amplification test intended for the qualitative detection of nucleic acid from SARS-CoV-2 viral RNA in nasopharyngeal (STRAIGHTENING MACHINE OPERATOR) specimens. It is used under Emergency Use Authorization (EUA) by FDA. The limit of detection (LOD) of the assay is 125 Genome Equivalents/mL. A positive result is indicative of the presence of SARS-CoV-2 RNA. ?Clinical correlation with patient history and other diagnostic [...] for repeat patient testing if clinically indicated. Lab Interpretation Normal (test code = 68654-4) [facility] CenteraPTT2021-05-05 19:56:43 Test Item Value Reference Range Interpretation Comments APTT Patient (test See_Comment [Automat ed code = 3173-2) message] The system which generated this result transmitted reference range : 23 - 38 Seconds . The reference range was not used to interpr et this result as normal/abnormal . DIANE (test code = DIANE) The [facility] patient population mean normal value for aPTT is 30 seconds. Lab Interpretation Normal (test code = 15091-7) [facility] CenterProthrombin Time (PT) / [id number] 19:53:59 Test Item Value Reference Range Interpretation Comments PROTIME PATIENT (test See_Comment [Auto mated message] code = 5964-2) The system wh ich generated this result transmitted ref erence range: 12.0 - 1 4.7 Seconds. The re ference range was not u sed to interpret this result as normal/abnor mal. INR (test code = 6301-6) Nor mal INR <1.1; Warfarin Therap eutic range 2.0 to 3. 0 or 2.5 to 3.5, dep ending upon the indica tions. Lab Interpretation (test Normal code = 87665-6) [facility] CenterCB with [id number] 19:38:57 Test Item Value Reference Range Interpretation Comments WBC (test code = See_Comment [Automated 9590-2) message] The sy stem which generated this result transmitted reference range : 4.20 - 10.70 10*3/?L. The reference range was not used to interpret this result as normal/abnormal . RBC (test code = See_Comment L [Automated 069-8) message] The sy stem which generated this result transmitted reference range : 4.26 - 5.52 10*6/?L. The reference range was not used to interpret this result as normal/abnormal . HGB (test code = 9.3 g/dL 12.2-16.4 L 718-7) HCT (test code = 28.6 % 38.4-49.3 L 4544-3) MCV (test code = 85.1 fL 81.7-95.6 787-2) MCH (test code = 27.7 pg 26.1-32.7 785-6) MCHC (test code = 32.5 g/dL 31.2-35.0 786-4) RDW-SD (test code = 61.7 fL 38.5-51.6 H 42549-4) RDW-CV (test code = 19.9 % 12.1-15.4 H 788-0) PLT (test code = See_Comment [Automated 777-3) message] The sy stem which generated this result transmitted reference range : 150 - 328 10*3/ ?L. The reference r batsheva was not used to interpret this result as normal/abnormal . MPV (test code = 9.4 fL 9.8-13.0 L 01712-3) NRBC/100 WBC (test See_Comment [Automat ed code = 0324860743) message] The system which generated this result transmitted reference range : 0.0 - 10.0 /100 WBCs. The refer ence range was not u sed to interpret th is result as normal/abnormal . NRBC x10^3 (test code <0.01 See_Comment [Auto mated = 6875697287) message] The s ystem which generated this result transmitted reference range : 10*3/?L. The reference range was not used to interpret this result as normal/abnormal . GRAN MAT (NEUT) % 64.0 % (test code = 770-8) IMM GRAN % (test code 0.40 % = 6574863711) LYMPH % (test code = 22.4 % 736-9) MONO % (test code = 9.1 % 5905-5) EOS % (test code = 3.4 % 713-8) BASO % (test code = 0.7 % 706-2) GRAN MAT x10^3(ANC) 3.57 10*3/uL 1.99-6.95 (test code = 1547643018) IMM GRAN x10^3 (test <0.03 0.00-0.06 code = 2927399388) LYMPH x10^3 (test code 1.25 10*3/uL 1.09-3.23 = 731-0) MONO x10^3 (test code 0.51 10*3/uL 0.36-1.02 = 742-7) EOS x10^3 (test code = 0.19 10*3/uL 0.06-0.53 711-2) BASO x10^3 (test code 0.04 10*3/uL 0.01-0.09 = 704-7) Lab Interpretation Abnormal (test code = 47945-9) [facility] 1 [id number] 19:11:24HISTORY: Chest pain. TECHNIQUE: Portable AP view of the chest is obtained. Comparison is madewith 09/02/2020 study. FINDINGS: Mild cardiomegaly noted with dilated central pulmonary arteries.Mild bibasilar pulmonary edema. Retrocardiac atelectasis noted. Midline sternotomy sutures are seen from previousthoracic surgery. Bipolarpermanent pacemaker inserted through left subclavian appeared to be in goodposition.. CONCLUSIONS: Mild cardiomegaly with mild pulmonary edema. Slightly morecongestion/atelectatic changes are seen in the retrocardiac left lowerlung.[facility], Radiant Results Inft User - 09/23/2020 2:12 PM CDTHISTORY: Chest pain.TECHNIQUE: Portable AP view of the chest is obtained. Comparison is m adewith 09/02/2020 study.FINDINGS: Mild cardiomegaly noted with dilated central pulmonary arteries.Mild bibasilar pulmonary edema. Retrocardiac atelectasis noted.Midline sternotomy sutures are seen fromprevious thoracic surgery. Bipolarpermanent pacemaker inserted through left subclavian appeared to be in goodposition.. CONCLUSIONS: Mild cardiomegaly with mild pulmonary edema. Slightly morecongestion/atelectatic changes are seen in the retrocardiac left lowerlung.[facility] Center[facility] [id number] 03:02:43 Test Item Value Reference Range Interpretation Comments Blood Culture-Aerobic No organisms No growth Previo us (test code = 06859-6) isolated prelim inary verified result was Culture In Progress on 09/03/2020 at 01 01 CDTPrevious preliminary verified result was No growth a t 24 hours on 09/03/2020 at 22 01 CDTPrevious preliminary verified result was No growth a t 48 hours on 09/04/2020 at 13 07 CDTPrevious preliminary verified result was No growth a t 72 hours on 09/05/2020 at 12 06 CDT Blood No organisms No growth Previous Culture-Anaerobic isolated preliminar y (test code = 82897-3) verifi ed result was Culture In Progress on 09/03/2020 at 05 22 CDTPrevious preliminary verified result was No growth a t 24 hours on 09/03/2020 at 12 06 CDTPrevious preliminary verified result was No growth a t 48 hours on 09/04/2020 at 13 07 CDTPrevious preliminary verified result was No growth a t 72 hours on 09/05/2020 at 12 06 CDT Lab Interpretation Normal (test code = 84834-5) [facility] [id number] 03:02:37 Test Item Value Reference Range Interpretation Comments Blood Culture-Aerobic No organisms No growth Previo us (test code = 65509-7) isolated prelim inary verified result was Culture In Progress on 09/03/2020 at 05 22 CDTPrevious preliminary verified result was No growth a t 24 hours on 09/03/2020 at 12 06 CDTPrevious preliminary verified result was No growth a t 48 hours on 09/04/2020 at 13 07 CDTPrevious preliminary verified result was No growth a t 72 hours on 09/05/2020 at 12 06 CDT Blood No organisms No growth Previous Culture-Anaerobic isolated preliminar y (test code = 37057-6) verifi ed result was Culture In Progress on 09/03/2020 at 05 22 CDTPrevious preliminary verified result was No growth a t 24 hours on 09/03/2020 at 12 06 CDTPrevious preliminary verified result was No growth a t 48 hours on 09/04/2020 at 13 07 CDTPrevious preliminary verified result was No growth a t 72 hours on 09/05/2020 at 12 06 CDT Lab Interpretation Normal (test code = 23174-7) [facility]2020-09-07 17:30:54 Test Item Value Reference Range Interpretation Comments POCT GLU (test code = 6309563775) 100 mg/dL 70-110 Lab Interpretation (test code = Normal 09830-3) [facility]2020-09-07 13:34:36 Test Item Value Reference Range Interpretation Comments POCT GLU (test code = 3152851448) 104 mg/dL 70-110 Lab Interpretation (test code = Normal 98552-6) [facility] CenterLAB ONLY COVID [id number] 03:22:39COVID DMT InterpretationInterpretation/Recommendations: Molecular NAAT Tests for Active Infection with the SARS-CoV-2 Virus: The patient has currently tested negative for the SARS-CoV-2 virus that causes COVID-19 illness. This most likely indicates that the patient does not have an active infection with the SARS-CoV-2 virus. However, infection is not completely ruled out as the false negative rate for molecular NAAT testing using a nasopharyngeal sample can be up to 30%, mostly dependent on the timing of sample collection in relation to illness onset and any deficiencies in sampling techniques. If the patient has symptoms concerning for COVID-19 illness, a repeat NAAT test (PCR, Rapid ID Now, etc.) should be performed, at which time the SARS-CoV-2 virus - if present - may have reached a detectable viral load (usually peaking by the end of the first week of symptoms). Tests for IgM and/or IgGAntibodies to the SARS-CoV-2 Virus: If the patient develops COVID-19 illness in the future, testingfor IgM and IgG antibodies approximately 3 weeks after illness onset will likely indicate if the patient has produced antibodies to the SARS-CoV-2 virus. However, some patients may take longer to develop detectable antibodies, while some patients who were infected with SARS-CoV-2 may never develop antibodies. While antibodies to SARS-CoV-2 may provide some degree of immunity, at this time the strength and duration of the antibody response is unknown. Interpretation Result Comments:These interpretation comments are based upon all COVID-19 testing the patient has had at [facility], including molecular NAAT testing (more commonly known as PCR testing and Rapid ID Now testing) and antibody testing. It does not take into account any testing that a patient has had outside of the [facility] medical record. [facility] LABORATORY SERVICESCOVID Resul [id number] Rapid ID NOW (no units) ? ? Date ? Value ? 09/02/2020 ? Not Detected ? ? ? 08/02/2020 ? Not Detected ? ? ? 07/27/2020 ? Not Detected ? ? ? 07/16/2020 ? Not Detected ? ? ? 07/10/2020 ? Not Detected ? ? ? 05/29/2020 ? Not Detected ? ? ? 03/16/2020 ? Not Detected ? ? ? 02/03/2020 ? Not Detected ? ? ? 11/16/2019 ? Not Detected ? ? ? 09/17/2019 ? Not Detected ? [facility]2020-09-07 01:56:49 Test Item Value Reference Range Interpretation Comments POCT GLU (test code = 2388388100) 120 mg/dL 70-110 H Lab Interpretation (test code = Abnormal 40396-7) [facility] ([facility]2020-09-06 14:03:31 Test Item Value Reference Range Interpretation Comments POCT GLU (test code = 4156699871) 107 mg/dL 70-110 Lab Interpretation (test code = Normal 19657-5) [facility]SE (AUTOMATED)2020-09-06 02:46:39 Test Item Value Reference Range Interpretation Comments POCT GLU (test code = 0907458694) 132 mg/dL 70-110 H Lab Interpretation (test code = Abnormal 16647-4) [facility] GLUCOSE (AUTOMATED)2020-09-05 14:23:02 Test Item Value Reference Range Interpretation Comments POCT GLU (test code = 3626180601) 115 mg/dL 70-110 H Lab Interpretation (test code = Abnormal 78083-9) [facility] WITH [id number] 10:22:11 Test Item Value Reference Range Interpretation Comments WBC (test code = See_Comment [Automated 6690-2) message] The sy stem which generated this result transmitted reference range : 4.20 - 10.70 10*3/?L. The reference range was not used to interpret this result as normal/abnormal . RBC (test code = See_Comment L [Automated 789-8) message] The sy stem which generated this result transmitted reference range : 4.26 - 5.52 10*6/?L. The reference range was not used to interpret this result as normal/abnormal . HGB (test code = 9.7 g/dL 12.2-16.4 L 718-7) HCT (test code = 31.8 % 38.4-49.3 L 4544-3) MCV (test code = 89.8 fL 81.7-95.6 787-2) MCH (test code = 27.4 pg 26.1-32.7 785-6) MCHC (test code = 30.5 g/dL 31.2-35.0 L 786-4) RDW-SD (test code = 60.7 fL 38.5-51.6 H 92742-7) RDW-CV (test code = 18.3 % 12.1-15.4 H 788-0) PLT (test code = See_Comment [Automated 777-3) message] The sy stem which generated this result transmitted reference range : 150 - 328 10*3/ ?L. The reference r batsheva was not used to interpret this result as normal/abnormal . MPV (test code = 9.4 fL 9.8-13.0 L 74363-5) NRBC/100 WBC (test See_Comment [Automat ed code = 9135126340) message] The system which generated this result transmitted reference range : 0.0 - 10.0 /100 WBCs. The refer ence range was not u sed to interpret th is result as normal/abnormal . NRBC x10^3 (test code <0.01 See_Comment [Auto mated = 0762933823) message] The s ystem which generated this result transmitted reference range : 10*3/?L. The reference range was not used to interpret this result as normal/abnormal . GRAN MAT (NEUT) % 71.6 % (test code = 770-8) IMM GRAN % (test code 0.40 % = 8935540024) LYMPH % (test code = 16.1 % 736-9) MONO % (test code = 7.1 % 5905-5) EOS % (test code = 4.1 % 713-8) BASO % (test code = 0.7 % 706-2) GRAN MAT x10^3(ANC) 6.60 10*3/uL 1.99-6.95 (test code = 3180368799) IMM GRAN x10^3 (test 0.04 10*3/uL 0.00-0.06 code = 3578431930) LYMPH x10^3 (test code 1.48 10*3/uL 1.09-3.23 = 731-0) MONO x10^3 (test code 0.65 10*3/uL 0.36-1.02 = 742-7) EOS x10^3 (test code = 0.38 10*3/uL 0.06-0.53 711-2) BASO x10^3 (test code 0.06 10*3/uL 0.01-0.09 = 704-7) Lab Interpretation Abnormal (test code = 49014-3) [facility] GLU[facility]SE (AUTOMATED)2020-09-05 01:21:19 Test Item Value Reference Range Interpretation Comments POCT GLU (test code = 0547942627) 171 mg/dL 70-110 H Lab Interpretation (test code = Abnormal 77338-1) [facility] GLUCOSE (AUTOMATED)2020-09-04 21:20:39 Test Item Value Reference Range Interpretation Comments POCT GLU (test code = 1168179042) 160 mg/dL 70-110 H Lab Interpretation (test code = Abnormal 09775-5) [facility] Center[facility] 16:05:28 Test Item Value Reference Range Interpretation Comments LIPASE (test code = 2322123109) 106 U/L 0-220 Lab Interpretation (test code = Normal 91051-0) [facility] GLUCOSE (AUTOMATED)2020-09-04 15:41:59 Test Item Value Reference Range Interpretation Comments POCT GLU (test code = 1722683575) 102 mg/dL 70-110 Lab Interpretation (test code = Normal 80529-2) [facility] GLUCOSE (AUTOMATED)2020-09-04 14:16:43 Test Item Value Reference Range Interpretation Comments POCT GLU (test code = 7588084185) 73 mg/dL 70-110 Lab Interpretation (test code = Normal 96292-0) [facility] GLUCOSE (AUTOMATED)2020-09-03 23:42:28 Test Item Value Reference Range Interpretation Comments POCT GLU (test code = 3827448678) 172 mg/dL 70-110 H Lab Interpretation (test code = Abnormal 71619-9) [facility] GLUCOSE (AUTOMATED)2020-09-03 15:24:47 Test Item Value Reference Range Interpretation Comments POCT GLU (test code = 4408124551) 71 mg/dL 70-110 Lab Interpretation (test code = Normal 47155-1) [facility] GLUCOSE (AUTOMATED)2020-09-03 08:17:31 Test Item Value Reference Range Interpretation Comments POCT GLU (test code = 9226965583) 83 mg/dL 70-110 Lab Interpretation (test code = Normal 63841-0) [facility] GLUCOSE (AUTOMATED)2020-09-03 07:42:01 Test Item Value Reference Range Interpretation Comments POCT GLU (test code = 6902843350) 59 mg/dL 70-110 L Lab Interpretation (test code = Abnormal 93584-3) [facility] METABOLIC PANEL (NA, K, CL, CO2, GLUCOSE, BUN, CREATININE, CA)2020-09-03 02:06:48 Test Item Value Reference Range Interpretation Comments NA (test code = 136 mmol/L 135-145 4042251362) K (test code = 4.6 mmol/L 3.5-5.0 1402546889) CL (test code = 104 mmol/L 98-108 2139953827) CO2 TOTAL (test code = 23 mmol/L 23-31 4301092844) AGAP (test code = 2-16 9837798166) BUN (test code = 28 mg/dL 7-23 H 0153470146) GLUCOSE (test code = 197 mg/dL 70-110 H 9057649975) CREATININE (test code = 1.15 mg/dL 0.60-1.25 2823568687) CALCIUM (test code = 7.7 mg/dL 8.6-10.6 L 7328987412) eGFR (test code = mL/min/1.73m2 2130026271) DIANE (test code = DIANE) Association of Glomerular Filtration Rate (GFR) and Staging of Kidney Disease* + --+ --+ ------+| GFR (mL/min/1.73 m2) ?| With Kidney Damage ?| ?Without Kidney Damage+ --------+ --------+ +| ?>90 ?| ?Stage one ?| ? Normal ?+ ---+ ---+ -------+| ?60-89 ?| ?Stage two ?| ? Decreased GFR ? + --+ --+ ------+| ?30-59 ?| ?Stage three ?| ? Stage three ? + --+ --+ ------+| ?15-29 ?| ?Stage four ? | ? Stage four ?+ ---+ ---+ -------+| ?<15 (or dialysis) ? ?| ?Stage five ? | ? Stage five ?+ ---+ ---+ -------+ *Each stage assumes the associated GFR level has been in effect for at least three months. ?Stages 1 to 5, with or without kidney disease, indicate chronic kidney disease. Notes: Determination of stages one and two (with eGFR >59mL/min/1.73 m2) requires estimation of kidney damage for at least three months as defined by structural or functional abnormalities of the kidney, manifested by either:Pathological abnormalities or Markers of kidney damage (including abnormalities in the composition of the blood or urine or abnormalities in imaging tests). Lab Interpretation Abnormal (test code = 02100-9) [facility] CenterN-TERMINAL [id number] 02:06:38 Test Item Value Reference Range Interpretation Comments NT-proBNP (test code 1630 pg/mL See_Comment H [Autom ated = 1608262438) message] The system which generated this result transmitted reference range : <=125. The reference range was not used to interpret this result as normal/abnormal . DIANE (test code = DIANE) Biotin has been reported to cause a negative bias, interpret results relative to patient's use of biotin. Lab Interpretation Abnormal (test code = 76139-7) [facility] CenterHEPATIC FUNCTION PANEL (96785) (ALB,T.PRO,BILI T,BU/BC,ALT,AST,ALK PHOS)2020-09-03 01:58:26 Test Item Value Reference Range Interpretation Comments TOTAL BILI (test code = 7973767694) 0.2 mg/dL 0.1-1.1 BILI UNCON (test code = 4869252000) 0.0 mg/dL 0.1-1.1 L BILI CONJ (test code = 2534873663) 0.0 mg/dL 0.0-0.3 T PROTEIN (test code = 9343232613) 6.1 g/dL 6.3-8.2 L ALBUMIN (test code = 2322200053) 3.2 g/dL 3.5-5.0 L ALK PHOS (test code = 4997937768) 67 U/L 34-122 ALTv (test code = 1742-6) 13 U/L 5-50 AST(SGOT) (test code = 8954928532) 20 U/L 13-40 Lab Interpretation (test code = Abnormal 13845-3) [facility] 01:58:26 Test Item Value Reference Range Interpretation Comments LIPASE (test code = 7674187451) 774 U/L 0-220 H Lab Interpretation (test code = Abnormal 02197-5) [facility] CenterXR [facility]ST 1 [id number] 23:51:42Impression: 1. Retrocardiac consolidation or atelectasis.2. Mildly enlarged cardiac silhouette. RL:[id number] End of Report Exam: Chest (1 View), 09/02/2020 5:30 PM. Ordering Physician: JESSEE MONTALVO. History: Hypotension. Technique: One view of the chest. Comparison: 07/27/2020. Findings: Pulse generator overlies the left hemithorax, with electrode lead tipsprojecting over the right atrium and ventricle. Median sternotomy and CABGchanges are seen. Cardiac silhouette is mildly enlarged. There is nopneumothorax. There are retrocardiac airspace opacities. ?Pleural anddiaphragmatic contours are normal. Osseous structures show degenerativechanges. Surgical clips project at the right upper quadrant. [facility], Radiant Results Inft User - 09/02/2020 6:52 PM CDTExam: Chest (1 View), 09/02/2020 5:30 PM.Ordering Physician: JESSEE MONTALVO.History: Hypotension. Technique: One view of the chest.Comparison: 07/27/2020.Findings: Pulse generator overlies the left hemithorax, with electrode lead tipsprojecting over the right atrium and ventricle. Median sternotomy and CABGchanges are seen. Cardiac silhouette is mildly enlarged. There is nopneumothorax. There are retrocardiac airspace opacities. Pleural anddiaphragmatic contours are normal. Osseous structures showdegenerativechanges. Surgical clips project at the right upper quadrant. IMPRESSIONImpression: 1. Retrocardiac consolidation or atelectasis.2. Mildly enlarged cardiac silhouette.RL: [id number] of Report [facility]COVID[facility] (ID NOW RAPID TESTING)2020-09-02 23:41:38 Test Item Value Reference Range Interpretation Comments SARS-CoV-2 Rapid ID NOW Not Detected Not Detected (test code = 14010-4) DIANE (test code = DIANE) ID NOW COVID-19 Assay is an isothermal nucleic acid amplification test intended for the qualitative detection of nucleic acid from SARS-CoV-2 viral RNA in nasopharyngeal (STRAIGHTENING MACHINE OPERATOR) specimens. It is used under Emergency Use Authorization (EUA) by FDA. The limit of detection (LOD) of the assay is 125 Genome Equivalents/mL. A positive result is indicative of the presence of SARS-CoV-2 RNA. ?Clinical correlation with patient history and other diagnostic [...] for repeat patient testing if clinically indicated. Lab Interpretation Normal (test code = 41995-5) [facility] CenterLasaint joseph berea Acid Whole [id number] 23:25:01 Test Item Value Reference Range Interpretation Comments LACTIC ACID (test code = 1.50 mmol/L 0.50-2.20 7730238530) Lab Interpretation (test code = Normal 14689-1) [facility] CenterTROPONIN [id number] 22:49:31 Test Item Value Reference Range Interpretation Comments TROPONIN I (test 0.010 ng/mL See_Comment [Automated code = 3569832145) message] The system which generated this result transmitted reference range : <=0.034. The reference range was not used to interpret this result as normal/abnormal . DIANE (test code = Equal or Less than DIANE) 0.034 ng/ml---Normal ?Note: Cardiac troponin begins to rise 3-4 hours after the onset of ischemia. Repeat in 4-6 hours if the sample was drawn within 3-4 hours of the onset of the symptom and found normal. Between 0.035 and 0.120 ng/mL--- Borderline. Questionable myocardial injury or necrosis ? ?Note: Serial measurement may be necessary to confirm or exclude the diagnosis of myocardial injury or necrosis; Clinical correlation (symptoms, EKGs, imaging studies, and others) required; Repeat in 4-6 hours if clinically indicated. ? Equal or Higher than 0.121 ng/mL---Abnormal. Myocardial Injury or Necrosis Likely ? Biotin has been reported to cause a negative bias, interpret results relative to patient's use of biotin. ? Lab Interpretation Normal (test code = 59000-9) [facility] CenterCOMP. METABOLIC PANEL (23918)2020-09-02 22:39:11 Test Item Value Reference Range Interpretation Comments NA (test code = 135 mmol/L 135-145 0612811230) K (test code = 4.7 mmol/L 3.5-5.0 7561157937) CL (test code = 101 mmol/L 98-108 4482684090) CO2 TOTAL (test code = 24 mmol/L 23-31 0922671277) AGAP (test code = 2-16 6416743013) BUN (test code = 29 mg/dL 7-23 H 0145170275) GLUCOSE (test code = 217 mg/dL 70-110 H 9624061747) CREATININE (test code = 1.21 mg/dL 0.60-1.25 1281443467) TOTAL BILI (test code = 0.2 mg/dL 0.1-1.2 3487269209) CALCIUM (test code = 8.3 mg/dL 8.6-10.6 L 8724399388) T PROTEIN (test code = 6.4 g/dL 6.3-8.2 0789635891) ALBUMIN (test code = 3.3 g/dL 3.5-5.0 L 3439755514) ALK PHOS (test code = 69 U/L 34-122 2905774719) ALTv (test code = 15 U/L 5-50 1742-6) AST(SGOT) (test code = 19 U/L 13-40 8452051879) eGFR (test code = mL/min/1.73m2 0929068169) DIANE (test code = DIANE) Association of Glomerular Filtration Rate (GFR) and Staging of Kidney Disease* + --+ --+ ------+| GFR (mL/min/1.73 m2) ?| With Kidney Damage ?| ?Without Kidney Damage+ --------+ --------+ +| ?>90 ?| ?Stage one ?| ? Normal ?+ ---+ ---+ -------+| ?60-89 ?| ?Stage two ?| ? Decreased GFR ? + --+ --+ ------+| ?30-59 ?| ?Stage three ?| ? Stage three ? + --+ --+ ------+| ?15-29 ?| ?Stage four ? | ? Stage four ?+ ---+ ---+ -------+| ?<15 (or dialysis) ? ?| ?Stage five ? | ? Stage five ?+ ---+ ---+ -------+ *Each stage assumes the associated GFR level has been in effect for at least three months. ?Stages 1 to 5, with or without kidney disease, indicate chronic kidney disease. Notes: Determination of stages one and two (with eGFR >59mL/min/1.73 m2) requires estimation of kidney damage for at least three months as defined by structural or functional abnormalities of the kidney, manifested by either:Pathological abnormalities or Markers of kidney damage (including abnormalities in the composition of the blood or urine or abnormalities in imaging tests). Lab Interpretation Abnormal (test code = 58828-0) [facility] CenterPROTHROMBIN TIME / [id number] 22:33:07 Test Item Value Reference Range Interpretation Comments PROTIME PATIENT (test See_Comment H [Auto mated message] code = 5964-2) The system wh ich generated this result transmitted ref erence range: 10.1 - 1 2.6 Seconds. The reference range was not used to int erpret this result as normal/abnormal . INR (test code = 6301-6) Nor mal INR <1.1; Warfarin Therap eutic range 2.0 to 3. 0 or 2.5 to 3.5, dep ending upon the indica tions. Lab Interpretation (test Abnormal code = 73533-9) [facility] CenterCB WITH [id number] 22:31:08 Test Item Value Reference Range Interpretation Comments WBC (test code = See_Comment H [Automated 6690-2) message] The system which generated this result transmit ludmila reference range : 4.20 - 10.70 10*3/?L. The reference range was not used to interpret this result as normal/abnormal . RBC (test code = See_Comment L [Automated 789-8) message] The system which generated this result transmit ludmila reference range : 4.26 - 5.52 10*6/?L. The reference range was not used to interpret this result as normal/abnormal . HGB (test code = 10.2 g/dL 12.2-16.4 L 718-7) HCT (test code = 32.5 % 38.4-49.3 L 4544-3) MCV (test code = 86.2 fL 81.7-95.6 787-2) MCH (test code = 27.1 pg 26.1-32.7 785-6) MCHC (test code = 31.4 g/dL 31.2-35.0 786-4) RDW-SD (test code = 57.2 fL 38.5-51.6 H 74055-6) RDW-CV (test code = 17.9 % 12.1-15.4 H 788-0) PLT (test code = See_Comment H [Automated 777-3) message] The system which generated this result transmit ludmila reference range : 150 - 328 10*3/ ?L. The reference range was not u sed to interpret th is result as normal/abnormal . MPV (test code = 9.3 fL 9.8-13.0 L 53755-5) NRBC/100 WBC (test See_Comment [Automat ed code = 5648872103) message] The system which generated this result transmit ludmila reference range : 0.0 - 10.0 /100 WBCs. The reference range was not used to interpret this result as normal/abnormal . NRBC x10^3 (test code <0.01 See_Comment [Auto mated = 5291314069) message] The system which generated this result transmit ludmila reference range : 10*3/?L. The reference range was not used to interpret this result as normal/abnormal . GRAN MAT (NEUT) % 81.2 % (test code = 770-8) IMM GRAN % (test code 1.10 % = 0199253058) LYMPH % (test code = 9.4 % 736-9) MONO % (test code = 4.5 % 5905-5) EOS % (test code = 3.4 % 713-8) BASO % (test code = 0.4 % 706-2) GRAN MAT x10^3(ANC) 11.36 10*3/uL 1.99-6.95 H (test code = 4349678459) IMM GRAN x10^3 (test 0.15 10*3/uL 0.00-0.06 H code = 5822031839) LYMPH x10^3 (test code 1.31 10*3/uL 1.09-3.23 = 731-0) MONO x10^3 (test code 0.63 10*3/uL 0.36-1.02 = 742-7) EOS x10^3 (test code = 0.48 10*3/uL 0.06-0.53 711-2) BASO x10^3 (test code 0.06 10*3/uL 0.01-0.09 = 704-7) Lab Interpretation Abnormal (test code = 08126-3) [facility] METABOLIC [id number] 21:42:00 Test Item Value Reference Range Interpretation Comments SODIUM (test code = NA) 133 mEq/L 134-147 L POTASSIUM (test code = 3.7 mEq/L 3.4-5.0 N K) CHLORIDE (test code = 100 mEq/L 100-108 N CL) CARBON DIOXIDE (test 24 mEq/l 21-33 N code = CO2) ANION GAP (test code = 13 0-20 N GAP) GLUCOSE (test code = 136 mg/dL 70-110 H GLU) BLOOD UREA NITROGEN 19 mg/dL 7-18 H (test code = BUN) GLOMERULAR FILTRATION 75.7 80-90 L Units of measure = RATE (test code = GFR) ml/mi n/1.73 m2 CREATININE (test code = 1.0 mg/dL 0.6-1.3 N CREAT) CALCIUM (test code = 9.6 mg/dL 8.0-10.5 N CA) HEPATIC FUNCTION [id number] 21:42:00 Test Item Value Reference Range Interpretation Comments TOTAL PROTEIN (test code = PROT) 7.9 g/dL 6.4-8.2 N ALBUMIN (test code = ALB) 3.40 g/dL 3.4-5.0 N BILIRUBIN TOTAL (test code = 0.50 mg/dL 0.0-1.0 N BILT) BILIRUBIN DIRECT (test code = 0.30 MG/DL 0.0-0.30 BILD) BILIRUBIN INDIRECT (test code = 0.20 MG/DL BILIND) SGOT/AST (test code = AST) 62 IUnit/L 15-37 H SGPT/ALT (test code = ALT) 32 IUnit/L 30-65 N ALKALINE PHOSPHATASE TOTAL (test 114 IUnit/L 20-125 N code = ALKP) [id number] 21:42:00 Test Item Value Reference Range Interpretation Comments LIPASE (test code = LIP) 70 U/L 13-57 H [id number] 21:42:00 Test Item Value Reference Range Interpretation Comments TROPONIN-I 0.026 ng/mL 0.000-0.045 N Negative: <= (test code = 0.045 Positive: TROPI) >= 0.046 Correl ation with serial results, other cardiac markers andclin ical findings is necessary to determine the clinicalsignifi cance of this result. Results using different metho dologies should not be c omparedto one another as minh titative results may babak y by method. UA RFLX MICR CULT IF [id number] 21:37:00 Test Item Value Reference Range Interpretation Comments UA COLOR (test code = COLU) YELLOW YEL/STRAW UA APPEARANCE (test code = APPU) SL CLOUDY CLEAR UA GLUCOSE DIPSTICK (test code = NEGATIVE NEGATIVE DGLUU) UA BILIRUBIN DIPSTICK (test code NEGATIVE NEGATIVE = BILU) UA KETONE DIPSTICK (test code = NEGATIVE NEGATIVE KETU) UA SPECIFIC GRAVITY (test code = 1.011 1.005-1.030 N SGU) UA BLOOD DIPSTICK (test code = 3+ NEGATIVE A ORTIZ) UA PH DIPSTICK (test code = NIC) 8.0 5.0-7.0 H UA PROTEIN DIPSTICK (test code = 2+ NEGATIVE A PROU) UA UROBILINIOGEN DIPSTICK (test 4.0 mg/dL 0.2-1.0 A code = URO) UA NITRITE DIPSTICK (test code = NEGATIVE NEGATIVE CARLOS ENRIQUE) UA LEUKOCYTE ESTERASE DIPSTICK 3+ NEGATIVE A (test code = LEUU) UA WBC (test code = WBCU) >50 WBC/HPF 0-3 A UA RBC (test code = RBCU) >50 RBC/HPF 0-3 A UA WBC NO REFLEX (test code = >50 WBC/HPF 0-3 A WBCUCL) UA BACTERIA (test code = BACU) TRACE /HPF NONE SEEN UA SQUAMOUS CELLS (test code = 0-5 /HPF NONE SEEN SQU) UA MUCUS (test code = MUCU) TRACE /LPF NONE SEEN Indication for culture: Dysuria/FrequencySpecimen Description: INDWELLING CATH (CDEENO)Cath Status: Under 72 hoursPROTHROMBIN [id number] 21:35:00 Test Item Value Reference Range Interpretation Comments PROTHROMBIN TIME 22.4 SECONDS 9.3-12.9 H PATIENT (test code = PTP) INTERNATIONAL NORMAL 2.0 0.8-1.2 H TARGET RATIO (test code = INR BY IN DICATION INR) Indication INR1. Prophyl axis of venous thrombos is 2.0 - 3. 0 (orthopedic erick maria luisa), Prophylaxis of venous thrombos is (other than hig h-risk surgery), Flor tment of Deep Vein Thrombosis/Pulm onary Embolism, Preve ntion of systemic emb olism - Tissue heart va lves, Acute Myocardia l Infarction (to prevent systemic embo lism), Valvular heart disease, Atri al Fibrillation, Bileaflet mecha nical valve in aortic position.2. Mec hanical prosthetic valv es (high risk), 2.5 - 3.5 Presence of Lupus Anticoagu lant or Antiphospholi pid Antibodies, Pre vention of systemic e mbolism - Acute Myocard ial Infarction (t o prevent recurre nt infarct). THROMBOPLASTIN TIME [id number] 21:35:00 Test Item Value Reference Range Interpretation Comments THROMBOPLASTIN TIME 41.7 Seconds 25.0-39.5 H Ther apeutic PARTIAL (test code = Range: 50.4 - 88.3 PTT) Seconds Effective 09/04/2018 CBC W/AUTO [id number] 21:29:00 Test Item Value Reference Range Interpretation Comments WHITE BLOOD CELL (test code = 12.6 x10 3/uL 4.5-11.0 H WBC) RED BLOOD CELL (test code = 4.36 x10 6/uL 4.00-5.60 N RBC) HEMOGLOBIN (test code = HGB) 11.6 g/dL 12.5-16.9 L HEMATOCRIT (test code = HCT) 38.1 % 37.5-50.7 N MEAN CELL VOLUME (test code = 87.4 fL 81.0-99.0 N MCV) MEAN CELL HGB (test code = MCH) 26.6 pg 27.0-33.0 L MEAN CELL HGB CONCETRATION 30.4 g/dL 33.0-37.0 L (test code = MCHC) RED CELL DISTRIBUTION WIDTH CV 17.2 % 11.5-14.5 H (test code = RDW) RED CELL DISTRIBUTION WIDTH SD 55.1 fL 37.0-54.0 H (test code = RDW-SD) PLATELET COUNT (test code = 377 x10 3/uL 150-400 N PLT) MEAN PLATELET VOLUME (test code 9.9 fL 7.0-9.0 H = MPV) NEUTROPHIL % (test code = NT%) 77.1 % 56.0-77.0 H IMMATURE GRANULOCYTE % (test 0.6 % 0.0-2.0 N code = IG%) LYMPHOCYTE % (test code = LY%) 11.5 % 14.0-32.0 L MONOCYTE % (test code = MO%) 8.4 % 4.8-9.0 N EOSINOPHIL % (test code = EO%) 2.0 % 0.3-3.7 N BASOPHIL % (test code = BA%) 0.4 % 0.0-2.0 N NUCLEATED RBC % (test code = 0.0 % 0-0 N NRBC%) NEUTROPHIL # (test code = NT#) 9.75 x10 3/uL 2.0-7.6 H IMMATURE GRANULOCYTE # (test 0.07 x10 3/uL 0.00-0.03 H code = IG#) LYMPHOCYTE # (test code = LY#) 1.45 x10 3/uL 1.0-3.8 N MONOCYTE # (test code = MO#) 1.06 x10 3/uL 0.1-0.8 H EOSINOPHIL # (test code = EO#) 0.25 x10 3/uL 0.0-0.2 H BASOPHIL # (test code = BA#) 0.05 x10 3/uL 0.0-0.2 N NUCLEATED RBC # (test code = 0.00 x10 3/uL 0.0-0.1 N NRBC#) MANUAL DIFF REQUIRED (test code NO = MDIFF) - CT ABD PELVIS W/O [id number] 20:49:00 [facility] 1960 Sex: M Name: ERNIE VANCE [facility] : 1960 Age/S: 60 / M [address] [place] [address] Unit #: [id number] Loc: [place] [address] Phys: Gisel Eugene [facility] Acct: [id number] Dis Date: Status: REG ER PHONE #: [phone] Exam Date: 08/23/20202024 FAX #: [phone] Reason: DIFFUSE ABDOMINAL PAIN EXAMS: CPT CODE: [id number] CT ABD PELVIS W/O CONT 24032 C linical indication: Diffuse abdominal pain. Contrast - No IV contrast was given. No oral contrast was given Noncontrast phase - abdomen and pelvis including all of kidneys Reconstructions - coronal and sagittal planes Automated exposure reduction (Auto mA/Smart mA) wasutilized in compliance with ACR Image Wisely with DLP of 694.8 mGy-cm. COMPARISON: Prior CT abdomen and pelvis dated 01/03/2019. FINDINGS: Statements: Lack of intravenous contrast compromises evaluation of abdominopelvic organs and vasculature. Lack of oralcontrast compromises evaluation of bowel. Thoracic: Small left pleural effusion. Linear atelectasis/scarring in the right lung base. Hepatobiliary: Diffuse hepatic steatosis. Surgical removal of the gallbladder. Mild prominence of the proximal common bile duct, likely due to increased capacitance. Pancreas: Normal. Spleen: Normal. Adrenals: Normal. Genitourinary: 2.3 x 2.2 cm simple interpolar right renal cyst. Mild bilateral ill-defined perinephric fat stranding noted. There is no evidence of hydronephrosis of either kidney. Punctate nonobstructive left midpole renal calculus Decompressed urinary bladder with Cedeno's catheter in position. Air within the urinary bladder, likely iatrogenic. Gastrointestinal: No bowel obstruction or perienteric inflammation. The appendix is normal. Vascular: The aorta is grossly normal in appearance.. Lymphatics: No enlarged lymph nodes by CT size criteria. Bones/Soft Tissues: Posterior instrumented interbody fusion at L4-L5 levels with laminectomy defects. No obvious fracture or loosening. Small bilateral fat-containing hernias. No ventralhernias. PAGE 1 Signed Report (CONTINUED) Name: ERNIE VANCE [facility] [place] : 1960 Age/S: 60 / M [address] [place] [address] Unit #: [id number] Loc: [place] [address] Phys: Gisel Eugene Acct: [id number] Dis Date: Status: REG ER PHONE #: [phone] Exam Date: 08/23/20202024 FAX #: [phone] Reason: DIFFUSE ABDOMINAL PAIN EXAMS: CPT CODE: [id number] CT ABD PELVIS W/O CONT 50782 <Continued> Peritoneum/Other: No extraluminal air. No extraluminal fluid. IMPRESSION: 1. No acute process in the abdomen and pelvis. 2. Hepatic steatosis. 3. C holecystectomy. Mild prominence of the proximal common bile duct likely due to increased capacitance. 4. 2.3 x 2.2 cm simple right interpolar renal cyst. Tiny nonobstructive left renal calculus. No hydronephrosis. 5. Normal appendix. 6. Posterior instrumented fusion from L4 through L5 levels. 7. Small left pleural effusion. at 2048 Reported and signed by: Irene Katz M.D. CC: Alf Hope DO; Fransisco Elam MD; Gisel Eugene Technologist:Cassandra Anne RT(R)(CT) CTDI: DLP: Trnscb Date/Time: 08/23/2020 (2048) [email or web address] Orig Print D/T: S: 08/23/2020 (2051) PAGE 2 Signed ReportBASIC METABOLIC [id number] 07:51:00 Test Item Value Reference Range Interpretation Comments SODIUM (test code = 141 mmol/L 136-145 N NA) POTASSIUM (test code 4.8 mmol/L 3.5-5.1 N = K) CHLORIDE (test code 106.0 mmol/L 98-107 N = CL) CARBON DIOXIDE (test 27.0 mmol/L 21-32 N code = CO2) ANION GAP (test code 12.8 10-20 N = GAP) GLUCOSE (test code = 73 mg/dL 74-106 L GLU) BLOOD UREA NITROGEN 27 mg/dL 7-18 H (test code = BUN) GLOMERULAR > 60 mL/min See_Comment Estimated GFR b y FILTRATION RATE using Modifi ed MDRD (test code = GFR) formula.Ch ronic kidney disease is defined as eith er kidney damageor GFR <60 mL/min/1.73 m2 for >3 months. [Automated mess age] The system [employer] generated this result transmitted ref erence range: >=60. Th e reference range was not used to int erpret this result as normal/abnormal . 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 [facility] BASIC METABOLIC [id number] 08:00:00 Test Item Value Reference Range Interpretation Comments SODIUM (test code = NA) 138 mEq/L 134-147 N POTASSIUM (test code = 4.1 mEq/L 3.4-5.0 N K) CHLORIDE (test code = 108 mEq/L 100-108 N CL) CARBON DIOXIDE (test 21 mEq/l 21-33 N code = CO2) ANION GAP (test code = 13 0-20 N GAP) GLUCOSE (test code = 137 mg/dL 70-110 H GLU) BLOOD UREA NITROGEN 6 mg/dL 7-18 L (test code = BUN) GLOMERULAR FILTRATION 98.0 80-90 H Units of measure = RATE (test code = GFR) ml/mi n/1.73 m2 CREATININE (test code = 0.8 mg/dL 0.6-1.3 N CREAT) CALCIUM (test code = 9.9 mg/dL 8.0-10.5 N CA) CBC W/AUTO [id number] 07:08:00 Test Item Value Reference Range Interpretation Comments WHITE BLOOD CELL (test code = 7.3 x10 3/uL 4.5-11.0 N WBC) RED BLOOD CELL (test code = 4.00 x10 6/uL 4.00-5.60 N RBC) HEMOGLOBIN (test code = HGB) 10.7 g/dL 12.5-16.9 L HEMATOCRIT (test code = HCT) 36.2 % 37.5-50.7 L MEAN CELL VOLUME (test code = 90.5 fL 81.0-99.0 N MCV) MEAN CELL HGB (test code = MCH) 26.8 pg 27.0-33.0 L MEAN CELL HGB CONCETRATION 29.6 g/dL 33.0-37.0 L (test code = MCHC) RED CELL DISTRIBUTION WIDTH CV 17.6 % 11.5-14.5 H (test code = RDW) RED CELL DISTRIBUTION WIDTH SD 57.7 fL 37.0-54.0 H (test code = RDW-SD) PLATELET COUNT (test code = 567 x10 3/uL 150-400 H PLT) MEAN PLATELET VOLUME (test code 9.0 fL 7.0-9.0 N = MPV) NEUTROPHIL % (test code = NT%) 64.1 % 56.0-77.0 N IMMATURE GRANULOCYTE % (test 1.0 % 0.0-2.0 N code = IG%) LYMPHOCYTE % (test code = LY%) 19.8 % 14.0-32.0 N MONOCYTE % (test code = MO%) 8.0 % 4.8-9.0 N EOSINOPHIL % (test code = EO%) 6.1 % 0.3-3.7 H BASOPHIL % (test code = BA%) 1.0 % 0.0-2.0 N NUCLEATED RBC % (test code = 0.0 % 0-0 N NRBC%) NEUTROPHIL # (test code = NT#) 4.71 x10 3/uL 2.0-7.6 N IMMATURE GRANULOCYTE # (test 0.07 x10 3/uL 0.00-0.03 H code = IG#) LYMPHOCYTE # (test code = LY#) 1.45 x10 3/uL 1.0-3.8 N MONOCYTE # (test code = MO#) 0.59 x10 3/uL 0.1-0.8 N EOSINOPHIL # (test code = EO#) 0.45 x10 3/uL 0.0-0.2 H BASOPHIL # (test code = BA#) 0.07 x10 3/uL 0.0-0.2 N NUCLEATED RBC # (test code = 0.00 x10 3/uL 0.0-0.1 N NRBC#) MANUAL DIFF REQUIRED (test code NO = MDIFF) [id number] 05:21:00 Test Item Value Reference Range Interpretation Comments GLUBED (test code = 150 MG/DL 70-110 H Performe d by certified GLUBED) 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 [facility] [id number] 21:13:00 Test Item Value Reference Range Interpretation Comments GLUBED (test code = 129 MG/DL 70-110 H Performe d by certified GLUBED) 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 [facility] [id number] 16:48:00 Test Item Value Reference Range Interpretation Comments GLUBED (test code = 116 MG/DL 70-110 H Performe d by certified GLUBED) 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 [facility] [id number] 12:18:00 Test Item Value Reference Range Interpretation Comments GLUBED (test code = 136 MG/DL 70-110 H Performe d by certified GLUBED) 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 [facility] [id number] 12:18:00 Test Item Value Reference Range Interpretation Comments GLUBED (test code = 151 MG/DL 70-110 H Performe d by certified GLUBED) 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 [facility] CBC W/AUTO [id number] 07:32:00 Test Item Value Reference Range Interpretation Comments WHITE BLOOD CELL (test code = 7.4 x10 3/uL 4.5-11.0 N WBC) RED BLOOD CELL (test code = 3.44 x10 6/uL 4.00-5.60 L RBC) HEMOGLOBIN (test code = HGB) 9.4 g/dL 12.5-16.9 L HEMATOCRIT (test code = HCT) 32.1 % 37.5-50.7 L MEAN CELL VOLUME (test code = 93.3 fL 81.0-99.0 N MCV) MEAN CELL HGB (test code = MCH) 27.3 pg 27.0-33.0 N MEAN CELL HGB CONCETRATION 29.3 g/dL 33.0-37.0 L (test code = MCHC) RED CELL DISTRIBUTION WIDTH CV 17.5 % 11.5-14.5 H (test code = RDW) RED CELL DISTRIBUTION WIDTH SD 59.2 fL 37.0-54.0 H (test code = RDW-SD) PLATELET COUNT (test code = 550 x10 3/uL 150-400 H PLT) MEAN PLATELET VOLUME (test code 9.0 fL 7.0-9.0 N = MPV) NEUTROPHIL % (test code = NT%) 67.6 % 56.0-77.0 N IMMATURE GRANULOCYTE % (test 0.9 % 0.0-2.0 N code = IG%) LYMPHOCYTE % (test code = LY%) 18.5 % 14.0-32.0 N MONOCYTE % (test code = MO%) 7.2 % 4.8-9.0 N EOSINOPHIL % (test code = EO%) 5.0 % 0.3-3.7 H BASOPHIL % (test code = BA%) 0.8 % 0.0-2.0 N NUCLEATED RBC % (test code = 0.0 % 0-0 N NRBC%) NEUTROPHIL # (test code = NT#) 4.99 x10 3/uL 2.0-7.6 N IMMATURE GRANULOCYTE # (test 0.07 x10 3/uL 0.00-0.03 H code = IG#) LYMPHOCYTE # (test code = LY#) 1.37 x10 3/uL 1.0-3.8 N MONOCYTE # (test code = MO#) 0.53 x10 3/uL 0.1-0.8 N EOSINOPHIL # (test code = EO#) 0.37 x10 3/uL 0.0-0.2 H BASOPHIL # (test code = BA#) 0.06 x10 3/uL 0.0-0.2 N NUCLEATED RBC # (test code = 0.00 x10 3/uL 0.0-0.1 N NRBC#) MANUAL DIFF REQUIRED (test code NO = MDIFF) BASIC METABOLIC [id number] 07:29:00 Test Item Value Reference Range Interpretation Comments SODIUM (test code = NA) 139 mEq/L 134-147 N POTASSIUM (test code = 4.3 mEq/L 3.4-5.0 N K) CHLORIDE (test code = 110 mEq/L 100-108 H CL) CARBON DIOXIDE (test 21 mEq/l 21-33 N code = CO2) ANION GAP (test code = 12 0-20 N GAP) GLUCOSE (test code = 123 mg/dL 70-110 H GLU) BLOOD UREA NITROGEN 8 mg/dL 7-18 N (test code = BUN) GLOMERULAR FILTRATION 114.3 80-90 H Units of measure = RATE (test code = GFR) ml/mi n/1.73 m2 CREATININE (test code = 0.7 mg/dL 0.6-1.3 N CREAT) CALCIUM (test code = 9.0 mg/dL 8.0-10.5 N CA) [id number] 05:19:00 Test Item Value Reference Range Interpretation Comments GLUBED (test code = 135 MG/DL 70-110 H Performe d by certified GLUBED) 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 [facility] [id number] 20:31:00 Test Item Value Reference Range Interpretation Comments GLUBED (test code = 189 MG/DL 70-110 H Performe d by certified GLUBED) 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 [facility] [id number] 17:41:00 Test Item Value Reference Range Interpretation Comments GLUBED (test code = 140 MG/DL 70-110 H Performe d by certified GLUBED) 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 [facility] - CTA CHEST FOR [id number] 13:48:00 [facility] 1960 Sex: M Name: ERNIE VANCE [facility] : 1960 Age/S: 60 / M [address] [place] [address] Unit #: [id number] Loc: [place] [address] Phys: Gina Gonzalez 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 Helical imaging performed apices to the lung bases. Multiplanar and 3-D MIP angiographic reconstructions were obtained at the modality without direct radiologist supervision. IV CONTRAST: [address] imaging performed at this location utilizes radiation dose optimization techniques which include one or more of the following: -Automated exposure control -Adjustment of the mA and/or kV according topatient size - Use of iterative reconstruction technique CT Radiation Dose DLP 354.80 mGy-cm LIMITATIONS: Respiratory motion. FINDINGS: PULMONARY ARTERIES:The central pulmonary arteries demonstrate normal enhancement. Motion limited survey of subsegmental branches. No discrete intraluminal filling defects identified. MEDIASTINUM: The mediastinal contents are unremarkable. No adenopathy. HEART: The cardiac chambers are unremarkable. Pacemaker/ICD leads. No pericardial effusion. Coronary artery calcifications: Severe. Coronary arterial stents and evidence for prior CABG. VASCULAR STRUCTURES: Mild scattered calcified plaque thoracic aorta. No aneurysm. Incomplete opacification without evidence for dissection. Left subclavian arterial stent. The superior vena cava is unremarkable. LUNGS: Small bilateral pleural effusions layering to approximately 5 cm on the left and 4 cm on the right. Partial compressive atelectasis of the lowerlobes. Mild interstitial septal thickening. Mild groundglass opacities in dependent portions of the lungs. There is no consolidation. UPPER ABDOMEN: Survey of viscera may be limited by early phase of PAGE 1 Signed Report (CONTINUED) Name: ERNIE VANCE [facility] : 1960 Age/S: 60 / M [address] [place] [address] Blvd Unit #: [id number] Loc: [place] [address] Phys: Gina Gonzalez NP Acct: [id number] Dis Date: Status: ADM IN PHONE #: [phone] Exam Date: 08/12/2020911 FAX #: [phone] Reason: CP, elevated D-dimer EXAMS: CPT CODE: [id number] [place] [address] <Continued> contrast enhancement. No acute abnormality demonstrated. MUSCULOSKELETAL: Healed median sternotomy. No acute skeletal abnormality. IMPRESSION: 1.Negative for pulmonary embolic disease within limitations noted. 2. Atherosclerosis. 3. Coronary arterial calcifications with prior coronary arterial stents and CABG. 4.Interstitial edema. No consolidation. 5. Small bilateral pleural effusions. SL: [id number] at 1348 Reported and signedby: Christiano Piña M.D. 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 [facility] CBC W/AUTO [id number] 09:17:00 Test Item Value Reference Range Interpretation Comments WHITE BLOOD CELL (test code = 7.1 x10 3/uL 4.5-11.0 N WBC) RED BLOOD CELL (test code = 3.32 x10 6/uL 4.00-5.60 L RBC) HEMOGLOBIN (test code = HGB) 8.9 g/dL 12.5-16.9 L HEMATOCRIT (test code = HCT) 31.2 % 37.5-50.7 L MEAN CELL VOLUME (test code = 94.0 fL 81.0-99.0 N MCV) MEAN CELL HGB (test code = MCH) 26.8 pg 27.0-33.0 L MEAN CELL HGB CONCETRATION 28.5 g/dL 33.0-37.0 L (test code = MCHC) RED CELL DISTRIBUTION WIDTH CV 17.6 % 11.5-14.5 H (test code = RDW) RED CELL DISTRIBUTION WIDTH SD 59.8 fL 37.0-54.0 H (test code = RDW-SD) PLATELET COUNT (test code = 530 x10 3/uL 150-400 H PLT) MEAN PLATELET VOLUME (test code 8.9 fL 7.0-9.0 N = MPV) NEUTROPHIL % (test code = NT%) 68.8 % 56.0-77.0 N IMMATURE GRANULOCYTE % (test 1.0 % 0.0-2.0 N code = IG%) LYMPHOCYTE % (test code = LY%) 18.1 % 14.0-32.0 N MONOCYTE % (test code = MO%) 6.1 % 4.8-9.0 N EOSINOPHIL % (test code = EO%) 5.2 % 0.3-3.7 H BASOPHIL % (test code = BA%) 0.8 % 0.0-2.0 N NUCLEATED RBC % (test code = 0.0 % 0-0 N NRBC%) NEUTROPHIL # (test code = NT#) 4.88 x10 3/uL 2.0-7.6 N IMMATURE GRANULOCYTE # (test 0.07 x10 3/uL 0.00-0.03 H code = IG#) LYMPHOCYTE # (test code = LY#) 1.28 x10 3/uL 1.0-3.8 N MONOCYTE # (test code = MO#) 0.43 x10 3/uL 0.1-0.8 N EOSINOPHIL # (test code = EO#) 0.37 x10 3/uL 0.0-0.2 H BASOPHIL # (test code = BA#) 0.06 x10 3/uL 0.0-0.2 N NUCLEATED RBC # (test code = 0.00 x10 3/uL 0.0-0.1 N NRBC#) MANUAL DIFF REQUIRED (test code NO = MDIFF) BASIC METABOLIC [id number] 08:28:00 Test Item Value Reference Range Interpretation Comments SODIUM (test code = NA) 140 mEq/L 134-147 N POTASSIUM (test code = 3.6 mEq/L 3.4-5.0 N K) CHLORIDE (test code = 110 mEq/L 100-108 H CL) CARBON DIOXIDE (test 22 mEq/l 21-33 N code = CO2) ANION GAP (test code = 11 0-20 N GAP) GLUCOSE (test code = 163 mg/dL 70-110 H GLU) BLOOD UREA NITROGEN 8 mg/dL 7-18 (test code = BUN) GLOMERULAR FILTRATION 98.0 80-90 H Units of measure = RATE (test code = GFR) ml/mi n/1.73 m2 CREATININE (test code = 0.8 mg/dL 0.6-1.3 CREAT) CALCIUM (test code = 8.3 mg/dL 8.0-10.5 N CA) [id number] 08:28:00 Test Item Value Reference Range Interpretation Comments PHOSPHOROUS (test code = PHOS) 3.6 MG/DL 2.5-4.9 N [id number] 08:28:00 Test Item Value Reference Range Interpretation Comments MAGNESIUM (test code = MAG) 1.94 mg/dL 1.80-2.40 N [id number] 07:16:00 Test Item Value Reference Range Interpretation Comments GLUBED (test code = 170 MG/DL 70-110 H Performe d by certified GLUBED) 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 [facility] [id number] 07:16:00 Test Item Value Reference Range Interpretation Comments GLUBED (test code = 137 MG/DL 70-110 H Performe d by certified GLUBED) 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 [facility] [id number] 17:01:00 Test Item Value Reference Range Interpretation Comments GLUBED (test code = 88 MG/DL 70-110 N Performe d by certified GLUBED) 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 [facility] [id number] 16:56:00 Test Item Value Reference Range Interpretation Comments ACT-ISTAT (test code 186 SEC 74-137 H Perform ed by certified = ACTI) 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 [facility] [id number] 15:03:00 Test Item Value Reference Range Interpretation Comments ACT-ISTAT (test code 235 SEC 74-137 H Perform ed by certified = ACTI) 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 [facility] [id number] 11:33:00 Test Item Value Reference Range Interpretation Comments GLUBED (test code = 97 MG/DL 70-110 N Performe d by certified GLUBED) 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 [facility] [id number] 06:54:00 Test Item Value Reference Range Interpretation Comments GLUBED (test code = 136 MG/DL 70-110 H Performe d by certified GLUBED) 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 [facility] BASIC METABOLIC [id number] 06:00:00 Test Item Value Reference Range Interpretation Comments SODIUM (test code = NA) 141 mEq/L 134-147 N POTASSIUM (test code = 4.4 mEq/L 3.4-5.0 N K) CHLORIDE (test code = 115 mEq/L 100-108 H CL) CARBON DIOXIDE (test 20 mEq/l 21-33 L code = CO2) ANION GAP (test code = 10 0-20 N GAP) GLUCOSE (test code = 83 mg/dL 70-110 GLU) BLOOD UREA NITROGEN 6 mg/dL 7-18 L (test code = BUN) GLOMERULAR FILTRATION 136.5 80-90 H Units of measure = RATE (test code = GFR) ml/mi n/1.73 m2 CREATININE (test code = 0.6 mg/dL 0.6-1.3 N CREAT) CALCIUM (test code = 7.4 mg/dL 8.0-10.5 L CA) COMMENTS: To be done morning of Heart [id number] 06:00:00 Test Item Value Reference Range Interpretation Comments PHOSPHOROUS (test code = PHOS) 4.1 MG/DL 2.5-4.9 N COMMENTS: To be done morning of Heart [id number] 06:00:00 Test Item Value Reference Range Interpretation Comments MAGNESIUM (test code = MAG) 1.74 mg/dL 1.80-2.40 L COMMENTS: To be done morning of Heart CathTHROMBOPLASTIN TIME [id number] 05:55:00 Test Item Value Reference Range Interpretation Comments THROMBOPLASTIN TIME 37.9 Seconds 25.0-39.5 N Ther apeutic PARTIAL (test code = Range: 50.4 - 88.3 PTT) Seconds Effective 09/04/2018 CBC W/AUTO [id number] 05:44:00 Test Item Value Reference Range Interpretation Comments WHITE BLOOD CELL (test code = 7.3 x10 3/uL 4.5-11.0 N WBC) RED BLOOD CELL (test code = 3.43 x10 6/uL 4.00-5.60 L RBC) HEMOGLOBIN (test code = HGB) 9.3 g/dL 12.5-16.9 L HEMATOCRIT (test code = HCT) 32.9 % 37.5-50.7 L MEAN CELL VOLUME (test code = 95.9 fL 81.0-99.0 MCV) MEAN CELL HGB (test code = MCH) 27.1 pg 27.0-33.0 N MEAN CELL HGB CONCETRATION 28.3 g/dL 33.0-37.0 L (test code = MCHC) RED CELL DISTRIBUTION WIDTH CV 18.0 % 11.5-14.5 H (test code = RDW) RED CELL DISTRIBUTION WIDTH SD 62.2 fL 37.0-54.0 H (test code = RDW-SD) PLATELET COUNT (test code = 513 x10 3/uL 150-400 H PLT) MEAN PLATELET VOLUME (test code 8.8 fL 7.0-9.0 N = MPV) NEUTROPHIL % (test code = NT%) 62.4 % 56.0-77.0 N IMMATURE GRANULOCYTE % (test 0.5 % 0.0-2.0 N code = IG%) LYMPHOCYTE % (test code = LY%) 21.3 % 14.0-32.0 N MONOCYTE % (test code = MO%) 7.5 % 4.8-9.0 N EOSINOPHIL % (test code = EO%) 7.2 % 0.3-3.7 H BASOPHIL % (test code = BA%) 1.1 % 0.0-2.0 N NUCLEATED RBC % (test code = 0.0 % 0-0 N NRBC%) NEUTROPHIL # (test code = NT#) 4.58 x10 3/uL 2.0-7.6 N IMMATURE GRANULOCYTE # (test 0.04 x10 3/uL 0.00-0.03 H code = IG#) LYMPHOCYTE # (test code = LY#) 1.56 x10 3/uL 1.0-3.8 N MONOCYTE # (test code = MO#) 0.55 x10 3/uL 0.1-0.8 N EOSINOPHIL # (test code = EO#) 0.53 x10 3/uL 0.0-0.2 H BASOPHIL # (test code = BA#) 0.08 x10 3/uL 0.0-0.2 N NUCLEATED RBC # (test code = 0.00 x10 3/uL 0.0-0.1 N NRBC#) MANUAL DIFF REQUIRED (test code NO = MDIFF) COMMENTS: To be done morning of Heart [id number] 05:44:00 Test Item Value Reference Range Interpretation Comments GLUBED (test code = 92 MG/DL 70-110 N Performe d by certified GLUBED) 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 [facility] HGBA1C%[id number] 17:22:00 Test Item Value Reference Range Interpretation Comments HGBA1C% (test code = HGBA1C%) 6.6 %A1C 4.8-6.0 H [id number] 17:17:00 Test Item Value Reference Range Interpretation Comments GLUBED (test code = 118 MG/DL 70-110 H Performe d by certified GLUBED) 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 Results using different metho dologies should not be c omparedto one another as minh titative results may babak y by method. COVID 19 Asymptomatic IH [id number] 11:35:00 Test Item Value Reference Range Interpretation Comments COVID 19 Asymptomatic Negative Negative A nega tive result is IH AG (test code = presumpti ve and should COVNONPUIAG) be confirmedwit h an FDA authorized mole cular assay, if neces tiffany forpatient jessie gement.A positive result does not rule out co-inf ections withother patho gens.This test detects kailash th viable (live) and non-viable,SARS -CoV, and SARS-CoV-2. Travis t performance dep ends on theamount of vi evelyn (antigen) in th e sample.This travis t has not been FDA cleare d or approved; the t est hasbeen authori zed by FDA under an Em ergency Use Authorizati on(EUA) for use by labo ratories certified under the CLIA thatmeet the requirements to perform moderate, high or waivedcomplexit y tests. COMMENTS: If not done this [id number] 11:31:00 Test Item Value Reference Range Interpretation Comments TROPONIN-I 0.033 ng/mL 0.000-0.045 N Negative: <= (test code = 0.045 Positive: TROPI) >= 0.046 Correl ation with serial results, other cardiac markers andclin ical findings is necessary to determine the clinicalsignifi cance of this result. Results using different metho dologies should not be c omparedto one another as minh titative results may babak y by method. [id number] 11:28:00 Test Item Value Reference Range Interpretation Comments D-DIMER (test 1089 ng/mlFEU See_Comment HH Critical resu lt called to code = ALYX WELLS, Rima ALCALAIMER) G.LAB.JJ1 at 04 1808/10/20Nurse r ead back result and tech confirmed it's correct? Y ESTHROMBOSIS AND/OR PULMONAR Y EMBOLISM AND THE CLINICA L CUT- OFF VALUE FOR EXCLU ROMERO (500 ng/mL FEU) OF T HESE CONDITIONSIS VA LIDATED BY THE MANUFACTURE R OF THE METHOD. A NEGAT THO D-DIMER RESULT WHEN COM BINED WITH A CLINICALASSESSM ENT OF LOW PRETEST PROBABI LITY HAS BEEN SHOWN TO H AVEA HIGH NEGATIVE PREDIC TIVE VALUE OF DVT OR PE. D -DIMER VALUES >500 ng/ mL FEU ARE NOT DIAGNOSTIC FOR DVT, PEor DIC WITHOU T OTHER CONFIRMATORY TE STS AND APPROPRIATECLIN ICAL EUALUATIONS. [A utomated message] The sy stem which generated this result transmitted ref erence range: <=500. T he reference range was not u sed to interpret this result as normal/abnormal . 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 [facility] B-TYPE NATRIURETIC [id number] 08:19:00 Test Item Value Reference Range Interpretation Comments B-TYPE NATRIURETIC PEPTIDE (test 508.0 PG/ML 0-100 H code = BNP) BASIC METABOLIC [id number] 08:11:00 Test Item Value Reference Range Interpretation Comments SODIUM (test code = NA) 142 mEq/L 134-147 N POTASSIUM (test code = 4.1 mEq/L 3.4-5.0 N K) CHLORIDE (test code = 107 mEq/L 100-108 N CL) CARBON DIOXIDE (test 26 mEq/l 21-33 N code = CO2) ANION GAP (test code = 13 0-20 N GAP) GLUCOSE (test code = 158 mg/dL 70-110 H GLU) BLOOD UREA NITROGEN 10 mg/dL 7-18 N (test code = BUN) GLOMERULAR FILTRATION 114.3 80-90 H Units of measure = RATE (test code = GFR) ml/mi n/1.73 m2 CREATININE (test code = 0.7 mg/dL 0.6-1.3 N CREAT) CALCIUM (test code = 9.1 mg/dL 8.0-10.5 N CA) HEPATIC FUNCTION [id number] 08:11:00 Test Item Value Reference Range Interpretation Comments TOTAL PROTEIN (test code = PROT) 6.9 g/dL 6.4-8.2 N ALBUMIN (test code = ALB) 3.00 g/dL 3.4-5.0 L BILIRUBIN TOTAL (test code = 0.30 mg/dL 0.0-1.0 N BILT) BILIRUBIN DIRECT (test code = 0.20 MG/DL 0.0-0.30 N BILD) BILIRUBIN INDIRECT (test code = 0.10 MG/DL BILIND) SGOT/AST (test code = AST) 30 IUnit/L 15-37 N SGPT/ALT (test code = ALT) 44 IUnit/L 30-65 N ALKALINE PHOSPHATASE TOTAL (test 174 IUnit/L 20-125 H code = ALKP) [id number] 08:11:00 Test Item Value Reference Range Interpretation Comments MAGNESIUM (test code = MAG) 1.80 mg/dL 1.80-2.40 N [id number] 08:11:00 Test Item Value Reference Range Interpretation Comments TROPONIN-I 0.029 ng/mL 0.000-0.045 N Negative: <= (test code = 0.045 Positive: TROPI) >= 0.046 Correl ation with serial results, other cardiac markers andclin ical findings is necessary to determine the clinicalsignifi cance of this result. Results using different metho dologies should not be c omparedto one another as minh titative results may babak y by method. BASIC METABOLIC [id number] 08:09:00 Test Item Value Reference Range Interpretation Comments SODIUM (test code = NA) mEq/L 134-147 POTASSIUM (test code = K) mEq/L 3.4-5.0 CHLORIDE (test code = CL) mEq/L 100-108 CARBON DIOXIDE (test code = CO2) mEq/l 21-33 ANION GAP (test code = GAP) 0-20 GLUCOSE (test code = GLU) mg/dL 70-110 BLOOD UREA NITROGEN (test code = BUN) mg/dL 7-18 GLOMERULAR FILTRATION RATE (test code 80-90 = GFR) CREATININE (test code = CREAT) mg/dL 0.6-1.3 CALCIUM (test code = CA) mg/dL 8.0-10.5 HEPATIC FUNCTION [id number] 08:09:00 Test Item Value Reference Range Interpretation Comments TOTAL PROTEIN (test code = PROT) g/dL 6.4-8.2 ALBUMIN (test code = ALB) g/dL 3.4-5.0 BILIRUBIN TOTAL (test code = BILT) mg/dL 0.0-1.0 BILIRUBIN DIRECT (test code = BILD) MG/DL 0.0-0.30 SGOT/AST (test code = AST) IUnit/L 15-37 SGPT/ALT (test code = ALT) IUnit/L 30-65 ALKALINE PHOSPHATASE TOTAL (test IUnit/L 20-125 code = ALKP) [id number] 08:09:00 Test Item Value Reference Range Interpretation Comments MAGNESIUM (test code = MAG) mg/dL 1.80-2.40 [id number] 08:09:00 Test Item Value Reference Range Interpretation Comments TROPONIN-I 0.029 ng/mL 0.000-0.045 N Negative: <= (test code = 0.045 Positive: TROPI) >= 0.046 Correl ation with serial results, other cardiac markers andclin ical findings is necessary to determine the clinicalsignifi cance of this result. Results using different metho dologies should not be c omparedto one another as minh titative results may babak y by method. PROTHROMBIN [id number] 08:06:00 Test Item Value Reference Range Interpretation Comments PROTHROMBIN TIME 20.1 SECONDS 9.3-12.9 H PATIENT (test code = PTP) INTERNATIONAL NORMAL 1.8 0.8-1.2 H TARGET RATIO (test code = INR BY IN DICATION INR) Indication INR1. Prophyl axis of venous thrombos is 2.0 - 3. 0 (orthopedic erick maria luisa), Prophylaxis of venous thrombos is (other than hig h-risk surgery), Flor tment of Deep Vein Thrombosis/Pulm onary Embolism, Preve ntion of systemic emb olism - Tissue heart va lves, Acute Myocardia l Infarction (to prevent systemic embo lism), Valvular heart disease, Atri al Fibrillation, Bileaflet mecha nical valve in aortic position.2. Mec hanical prosthetic valv es (high risk), 2.5 - 3.5 Presence of Lupus Anticoagu lant or Antiphospholi pid Antibodies, Pre vention of systemic e mbolism - Acute Myocard ial Infarction (t o prevent recurre nt infarct). THROMBOPLASTIN TIME [id number] 08:06:00 Test Item Value Reference Range Interpretation Comments THROMBOPLASTIN TIME 44.5 Seconds 25.0-39.5 H Ther apeutic PARTIAL (test code = Range: 50.4 - 88.3 PTT) Seconds Effective 09/04/2018 CBC W/AUTO [id number] 07:58:00 Test Item Value Reference Range Interpretation Comments WHITE BLOOD CELL (test code = 8.1 x10 3/uL 4.5-11.0 N WBC) RED BLOOD CELL (test code = 3.35 x10 6/uL 4.00-5.60 L RBC) HEMOGLOBIN (test code = HGB) 9.2 g/dL 12.5-16.9 L HEMATOCRIT (test code = HCT) 30.0 % 37.5-50.7 L MEAN CELL VOLUME (test code = 89.6 fL 81.0-99.0 N MCV) MEAN CELL HGB (test code = MCH) 27.5 pg 27.0-33.0 N MEAN CELL HGB CONCETRATION 30.7 g/dL 33.0-37.0 L (test code = MCHC) RED CELL DISTRIBUTION WIDTH CV 17.7 % 11.5-14.5 H (test code = RDW) RED CELL DISTRIBUTION WIDTH SD 57.1 fL 37.0-54.0 H (test code = RDW-SD) PLATELET COUNT (test code = 552 x10 3/uL 150-400 H PLT) MEAN PLATELET VOLUME (test code 8.7 fL 7.0-9.0 N = MPV) NEUTROPHIL % (test code = NT%) 62.6 % 56.0-77.0 N IMMATURE GRANULOCYTE % (test 0.6 % 0.0-2.0 N code = IG%) LYMPHOCYTE % (test code = LY%) 22.4 % 14.0-32.0 N MONOCYTE % (test code = MO%) 8.2 % 4.8-9.0 N EOSINOPHIL % (test code = EO%) 5.3 % 0.3-3.7 H BASOPHIL % (test code = BA%) 0.9 % 0.0-2.0 N NUCLEATED RBC % (test code = 0.0 % 0-0 N NRBC%) NEUTROPHIL # (test code = NT#) 5.07 x10 3/uL 2.0-7.6 N IMMATURE GRANULOCYTE # (test 0.05 x10 3/uL 0.00-0.03 H code = IG#) LYMPHOCYTE # (test code = LY#) 1.81 x10 3/uL 1.0-3.8 N MONOCYTE # (test code = MO#) 0.66 x10 3/uL 0.1-0.8 N EOSINOPHIL # (test code = EO#) 0.43 x10 3/uL 0.0-0.2 H BASOPHIL # (test code = BA#) 0.07 x10 3/uL 0.0-0.2 N NUCLEATED RBC # (test code = 0.00 x10 3/uL 0.0-0.1 N NRBC#) MANUAL DIFF REQUIRED (test code NO = MDIFF) - XR CHEST 1 [id number] 07:57:00 [facility]TS[facility]: ERNIE VANCE : 1960 Sex: M FAX: Todd Jacobo MD [phone] [place]: St: REG FAX: Martínez Dash NP [phone] Name: ERNIE VANCE [facility] [place] : 1960 Age/S: 60/M [address] [place] [address] Unit #: [id number] Loc: [place] [address] Phys: Martínez Dash NP Acct: [id number] Dis Date: Status: REG ER PHONE #: [phone] Exam Date: 08/10/2020 [facility] FAX #: [phone] Reason: Chest Pain EXAMS: CPT CODE: [id number] XR CHEST 1 V 13093 Chest single view 08/10/2020 HISTORY: Chest pain. Comparison is made to 05/21/2018 FINDINGS: Pacemaker and midline sternotomy wires are stable. The lungs are hypoinflated. No consolidation or pleural effusion is present. No vascular congestion or interstitial edema is present. Heart size is mildly enlarged. Aorta is unchanged. IMPRESSION: Hypoinflated lungs. No acute cardiopulmonary process. SL:[id number] at 0757 Reported and signed by: Arleth Kruse M.D. CC: Todd Jacobo MD; Martínez Dash NP Technologist: ALYCE Juarez) Trnscrd Date/Time/By: 08/10/2020 (0757) : By: [email or web address] Orig Print D/T: S: 08/10/2020 (0800) PAGE 1 Signed ReportaPTT (for use with Heparin Drip) 2020-08-06 19:40:44 Test Item Value Reference Range Interpretation Comments APTT Patient (test code See_Comment HH [Au tomated message] = 3173-2) The system [employer] generated this result transmitted ref erence range: 26 - 36 Seconds. The reference range was not used to int erpret this result as normal/abnormal . Lab Interpretation (test Abnormal code = 34868-6) [facility] 14:27:45 Test Item Value Reference Range Interpretation Comments POCT GLU (test code = 5758071476) 104 mg/dL 70-110 Lab Interpretation (test code = Normal 35906-6) [facility] METABOLIC PANEL (NA, K, CL, CO2, GLUCOSE, BUN, CREATININE, CA)2020-08-06 11:09:24 Test Item Value Reference Range Interpretation Comments NA (test code = 131 mmol/L 135-145 L 7876172107) K (test code = 3.9 mmol/L 3.5-5.0 2293497148) CL (test code = 96 mmol/L 98-108 L 4255811344) CO2 TOTAL (test code = 27 mmol/L 23-31 6005368928) AGAP (test code = 2-16 5443633772) BUN (test code = 15 mg/dL 7-23 1144003483) GLUCOSE (test code = 104 mg/dL 70-110 5603511035) CREATININE (test code = 0.93 mg/dL 0.60-1.25 0730672054) CALCIUM (test code = 8.4 mg/dL 8.6-10.6 L 6830905024) eGFR Calculation mL/min/1.73m2 (Non-) (test code = 4288673536) eGFR Calculation mL/min/1.73m2 () (test code = 6835489474) DIANE (test code = DIANE) Association of Glomerular Filtration Rate (GFR) and Staging of Kidney Disease* + --+ --+ ------+| GFR (mL/min/1.73 m2) ?| With Kidney Damage ?| ?Without Kidney Damage+ --------+ --------+ +| ?>90 ?| ?Stage one ?| ? Normal ?+ ---+ ---+ -------+| ?60-89 ?| ?Stage two ?| ? Decreased GFR ? + --+ --+ ------+| ?30-59 ?| ?Stage three ?| ? Stage three ? + --+ --+ ------+| ?15-29 ?| ?Stage four ? | ? Stage four ?+ ---+ ---+ -------+| ?<15 (or dialysis) ? ?| ?Stage five ? | ? Stage five ?+ ---+ ---+ -------+ *Each stage assumes the associated GFR level has been in effect for at least three months. ?Stages 1 to 5, with or without kidney disease, indicate chronic kidney disease. Notes: Determination of stages one and two (with eGFR >59mL/min/1.73 m2) requires estimation of kidney damage for at least three months as defined by structural or functional abnormalities of the kidney, manifested by either:Pathological abnormalities or Markers of kidney damage (including abnormalities in the composition of the blood or urine or abnormalities in imaging tests). Lab Interpretation Abnormal (test code = 08285-2) [facility] WITH [id number] 10:46:44 Test Item Value Reference Range Interpretation Comments WBC (test code = See_Comment [Automated 6290-2) message] The sy stem which generated this result transmitted reference range : 4.20 - 10.70 10*3/?L. The reference range was not used to interpret this result as normal/abnormal . RBC (test code = See_Comment L [Automated 369-8) message] The sy stem which generated this result transmitted reference range : 4.26 - 5.52 10*6/?L. The reference range was not used to interpret this result as normal/abnormal . HGB (test code = 7.1 g/dL 12.2-16.4 L 718-7) HCT (test code = 22.1 % 38.4-49.3 L 4544-3) MCV (test code = 86.0 fL 81.7-95.6 787-2) MCH (test code = 27.6 pg 26.1-32.7 785-6) MCHC (test code = 32.1 g/dL 31.2-35.0 786-4) RDW-SD (test code = 54.1 fL 38.5-51.6 H 62318-2) RDW-CV (test code = 17.3 % 12.1-15.4 H 788-0) PLT (test code = See_Comment [Automated 777-3) message] The sy stem which generated this result transmitted reference range : 150 - 328 10*3/ ?L. The reference r batsheva was not used to interpret this result as normal/abnormal . MPV (test code = 9.7 fL 9.8-13.0 L 46875-9) NRBC/100 WBC (test See_Comment [Automat ed code = 8233925402) message] The system which generated this result transmitted reference range : 0.0 - 10.0 /100 WBCs. The refer ence range was not u sed to interpret th is result as normal/abnormal . NRBC x10^3 (test code <0.01 See_Comment [Auto mated = 3635505245) message] The s ystem which generated this result transmitted reference range : 10*3/?L. The reference range was not used to interpret this result as normal/abnormal . GRAN MAT (NEUT) % 71.6 % (test code = 770-8) IMM GRAN % (test code 0.60 % = 9842380536) LYMPH % (test code = 13.3 % 736-9) MONO % (test code = 11.0 % 5905-5) EOS % (test code = 3.1 % 713-8) BASO % (test code = 0.4 % 706-2) GRAN MAT x10^3(ANC) 5.59 10*3/uL 1.99-6.95 (test code = 0948490757) IMM GRAN x10^3 (test 0.05 10*3/uL 0.00-0.06 code = 4869109582) LYMPH x10^3 (test code 1.04 10*3/uL 1.09-3.23 L = 731-0) MONO x10^3 (test code 0.86 10*3/uL 0.36-1.02 = 742-7) EOS x10^3 (test code = 0.24 10*3/uL 0.06-0.53 711-2) BASO x10^3 (test code 0.03 10*3/uL 0.01-0.09 = 704-7) Lab Interpretation Abnormal (test code = 72651-2) [facility] (for use with Heparin Drip)2020-08-06 03:15:26 Test Item Value Reference Range Interpretation Comments APTT Patient (test code See_Comment H [Au tomated message] = 3943-2) The system [employer] generated this result transmitted ref erence range: 26 - 36 Seconds. The reference range was not used to int erpret this result as normal/abnormal . Lab Interpretation (test Abnormal code = 66975-0) [facility] GLU[facility]SE (AUTOMATED)2020-08-06 02:27:22 Test Item Value Reference Range Interpretation Comments POCT GLU (test code = 0993871239) 136 mg/dL 70-110 H Lab Interpretation (test code = Abnormal 12662-2) [facility] GLUCOSE (AUTOMATED)2020-08-05 23:26:03 Test Item Value Reference Range Interpretation Comments POCT GLU (test code = 3448005377) 146 mg/dL 70-110 H Lab Interpretation (test code = Abnormal 98941-2) [facility] (for use with Heparin Drip)2020-08-05 19:15:55 Test Item Value Reference Range Interpretation Comments APTT Patient (test code See_Comment H [Au tomated message] = 0953-2) The system [employer] generated this result transmitted ref erence range: 26 - 36 Seconds. The reference range was not used to int erpret this result as normal/abnormal . Lab Interpretation (test Abnormal code = 75009-8) [facility] METABOLIC PANEL (NA, K, CL, CO2, GLUCOSE, BUN, CREATININE, CA)2020-08-05 05:43:08 Test Item Value Reference Range Interpretation Comments NA (test code = 134 mmol/L 135-145 L 7168336688) K (test code = 3.9 mmol/L 3.5-5.0 6318118684) CL (test code = 97 mmol/L 98-108 L 1663172436) CO2 TOTAL (test code = 28 mmol/L 23-31 8721179872) AGAP (test code = 2-16 3845686590) BUN (test code = 15 mg/dL 7-23 1939581842) GLUCOSE (test code = 148 mg/dL 70-110 H 5174563537) CREATININE (test code = 1.06 mg/dL 0.60-1.25 4131957921) CALCIUM (test code = 8.5 mg/dL 8.6-10.6 L 7675680119) eGFR Calculation mL/min/1.73m2 (Non-) (test code = 7393907603) eGFR Calculation mL/min/1.73m2 () (test code = 8373314426) DIANE (test code = DIANE) Association of Glomerular Filtration Rate (GFR) and Staging of Kidney Disease* + --+ --+ ------+| GFR (mL/min/1.73 m2) ?| With Kidney Damage ?| ?Without Kidney Damage+ --------+ --------+ +| ?>90 ?| ?Stage one ?| ? Normal ?+ ---+ ---+ -------+| ?60-89 ?| ?Stage two ?| ? Decreased GFR ? + --+ --+ ------+| ?30-59 ?| ?Stage three ?| ? Stage three ? + --+ --+ ------+| ?15-29 ?| ?Stage four ? | ? Stage four ?+ ---+ ---+ -------+| ?<15 (or dialysis) ? ?| ?Stage five ? | ? Stage five ?+ ---+ ---+ -------+ *Each stage assumes the associated GFR level has been in effect for at least three months. ?Stages 1 to 5, with or without kidney disease, indicate chronic kidney disease. Notes: Determination of stages one and two (with eGFR >59mL/min/1.73 m2) requires estimation of kidney damage for at least three months as defined by structural or functional abnormalities of the kidney, manifested by either:Pathological abnormalities or Markers of kidney damage (including abnormalities in the composition of the blood or urine or abnormalities in imaging tests). Lab Interpretation Abnormal (test code = 34550-4) [facility] Test Item Value Reference Range Interpretation Comments MAGNESIUM (test code = 9434808596) 2.0 mg/dL 1.7-2.4 Lab Interpretation (test code = Normal 08710-3) [facility] D[facility]2020-08-05 05:31:27 Test Item Value Reference Range Interpretation Comments APTT Patient (test code See_Comment H [Au tomated message] = 3173-2) The system [employer] generated this result transmitted ref erence range: 26 - 36 Seconds. The reference range was not used to int erpret this result as normal/abnormal . Lab Interpretation (test Abnormal code = 19450-5) [facility] WITH [id number] 05:24:44 Test Item Value Reference Range Interpretation Comments WBC (test code = See_Comment [Automated 6690-2) message] The sy stem which generated this result transmitted reference range : 4.20 - 10.70 10*3/?L. The reference range was not used to interpret this result as normal/abnormal . RBC (test code = See_Comment L [Automated 789-8) message] The sy stem which generated this result transmitted reference range : 4.26 - 5.52 10*6/?L. The reference range was not used to interpret this result as normal/abnormal . HGB (test code = 7.2 g/dL 12.2-16.4 L 718-7) HCT (test code = 23.1 % 38.4-49.3 L 4544-3) MCV (test code = 85.6 fL 81.7-95.6 787-2) MCH (test code = 26.7 pg 26.1-32.7 785-6) MCHC (test code = 31.2 g/dL 31.2-35.0 786-4) RDW-SD (test code = 54.1 fL 38.5-51.6 H 04271-1) RDW-CV (test code = 17.4 % 12.1-15.4 H 788-0) PLT (test code = See_Comment [Automated 777-3) message] The sy stem which generated this result transmitted reference range : 150 - 328 10*3/ ?L. The reference r batsheva was not used to interpret this result as normal/abnormal . MPV (test code = 9.6 fL 9.8-13.0 L 02696-0) NRBC/100 WBC (test See_Comment [Automat ed code = 6109815042) message] The system which generated this result transmitted reference range : 0.0 - 10.0 /100 WBCs. The refer ence range was not u sed to interpret th is result as normal/abnormal . NRBC x10^3 (test code <0.01 See_Comment [Auto mated = 6196434439) message] The s ystem which generated this result transmitted reference range : 10*3/?L. The reference range was not used to interpret this result as normal/abnormal . GRAN MAT (NEUT) % 70.3 % (test code = 770-8) IMM GRAN % (test code 0.60 % = 1609401351) LYMPH % (test code = 14.6 % 736-9) MONO % (test code = 12.5 % 5905-5) EOS % (test code = 1.7 % 713-8) BASO % (test code = 0.3 % 706-2) GRAN MAT x10^3(ANC) 6.11 10*3/uL 1.99-6.95 (test code = 7119127198) IMM GRAN x10^3 (test 0.05 10*3/uL 0.00-0.06 code = 8961893508) LYMPH x10^3 (test code 1.27 10*3/uL 1.09-3.23 = 731-0) MONO x10^3 (test code 1.09 10*3/uL 0.36-1.02 H = 742-7) EOS x10^3 (test code = 0.15 10*3/uL 0.06-0.53 711-2) BASO x10^3 (test code 0.03 10*3/uL 0.01-0.09 = 704-7) Lab Interpretation Abnormal (test code = 35439-6) [facility]SE (AUTOMATED)2020-08-05 01:58:45 Test Item Value Reference Range Interpretation Comments POCT GLU (test code = 3277393610) 186 mg/dL 70-110 H Lab Interpretation (test code = Abnormal 43764-6) [facility] 17:16:48 Test Item Value Reference Range Interpretation Comments APTT Patient (test code See_Comment H [Au tomated message] = 3173-2) The system [employer] generated this result transmitted ref erence range: 26 - 36 Seconds. The reference range was not used to int erpret this result as normal/abnormal . Lab Interpretation (test Abnormal code = 74996-1) [facility] GLUCOSE (AUTOMATED)2020-08-04 14:09:13 Test Item Value Reference Range Interpretation Comments POCT GLU (test code = 4879925073) 133 mg/dL 70-110 H Lab Interpretation (test code = Abnormal 88469-6) [facility] METABOLIC PANEL (NA, K, CL, CO2, GLUCOSE, BUN, CREATININE, CA)2020-08-04 10:34:01 Test Item Value Reference Range Interpretation Comments NA (test code = 135 mmol/L 135-145 1039484104) K (test code = 3.7 mmol/L 3.5-5.0 6158130856) CL (test code = 100 mmol/L 98-108 8987653042) CO2 TOTAL (test code = 30 mmol/L 23-31 7299101642) AGAP (test code = 2-16 5965415230) BUN (test code = 15 mg/dL 7-23 4210134680) GLUCOSE (test code = 119 mg/dL 70-110 H 9535009942) CREATININE (test code = 1.01 mg/dL 0.60-1.25 5613397323) CALCIUM (test code = 8.0 mg/dL 8.6-10.6 L 5243708985) eGFR Calculation mL/min/1.73m2 (Non-) (test code = 0091309344) eGFR Calculation mL/min/1.73m2 () (test code = 6078330271) DIANE (test code = DIANE) Association of Glomerular Filtration Rate (GFR) and Staging of Kidney Disease* + --+ --+ ------+| GFR (mL/min/1.73 m2) ?| With Kidney Damage ?| ?Without Kidney Damage+ --------+ --------+ +| ?>90 ?| ?Stage one ?| ? Normal ?+ ---+ ---+ -------+| ?60-89 ?| ?Stage two ?| ? Decreased GFR ? + --+ --+ ------+| ?30-59 ?| ?Stage three ?| ? Stage three ? + --+ --+ ------+| ?15-29 ?| ?Stage four ? | ? Stage four ?+ ---+ ---+ -------+| ?<15 (or dialysis) ? ?| ?Stage five ? | ? Stage five ?+ ---+ ---+ -------+ *Each stage assumes the associated GFR level has been in effect for at least three months. ?Stages 1 to 5, with or without kidney disease, indicate chronic kidney disease. Notes: Determination of stages one and two (with eGFR >59mL/min/1.73 m2) requires estimation of kidney damage for at least three months as defined by structural or functional abnormalities of the kidney, manifested by either:Pathological abnormalities or Markers of kidney damage (including abnormalities in the composition of the blood or urine or abnormalities in imaging tests). Lab Interpretation Abnormal (test code = 13164-6) [facility] WITH [id number] 10:05:37 Test Item Value Reference Range Interpretation Comments WBC (test code = See_Comment [Automated 9597-2) message] The sy stem which generated this result transmitted reference range : 4.20 - 10.70 10*3/?L. The reference range was not used to interpret this result as normal/abnormal . RBC (test code = See_Comment L [Automated 824-3) message] The sy stem which generated this result transmitted reference range : 4.26 - 5.52 10*6/?L. The reference range was not used to interpret this result as normal/abnormal . HGB (test code = 7.3 g/dL 12.2-16.4 L 718-7) HCT (test code = 22.9 % 38.4-49.3 L 4544-3) MCV (test code = 87.1 fL 81.7-95.6 787-2) MCH (test code = 27.8 pg 26.1-32.7 785-6) MCHC (test code = 31.9 g/dL 31.2-35.0 786-4) RDW-SD (test code = 54.7 fL 38.5-51.6 H 64244-1) RDW-CV (test code = 17.3 % 12.1-15.4 H 788-0) PLT (test code = See_Comment H [Automated 777-3) message] The sy stem which generated this result transmitted reference range : 150 - 328 10*3/ ?L. The reference r batsheva was not used to interpret this result as normal/abnormal . MPV (test code = 9.8 fL 9.8-13.0 63829-3) NRBC/100 WBC (test See_Comment [Automat ed code = 2227157658) message] The system which generated this result transmitted reference range : 0.0 - 10.0 /100 WBCs. The refer ence range was not u sed to interpret th is result as normal/abnormal . NRBC x10^3 (test code <0.01 See_Comment [Auto mated = 9045939453) message] The s ystem which generated this result transmitted reference range : 10*3/?L. The reference range was not used to interpret this result as normal/abnormal . GRAN MAT (NEUT) % 77.8 % (test code = 770-8) IMM GRAN % (test code 0.20 % = 2516627913) LYMPH % (test code = 11.0 % 736-9) MONO % (test code = 9.9 % 5905-5) EOS % (test code = 0.8 % 713-8) BASO % (test code = 0.3 % 706-2) GRAN MAT x10^3(ANC) 6.90 10*3/uL 1.99-6.95 (test code = 2563552375) IMM GRAN x10^3 (test <0.03 0.00-0.06 code = 8281449004) LYMPH x10^3 (test code 0.98 10*3/uL 1.09-3.23 L = 731-0) MONO x10^3 (test code 0.88 10*3/uL 0.36-1.02 = 742-7) EOS x10^3 (test code = 0.07 10*3/uL 0.06-0.53 711-2) BASO x10^3 (test code 0.03 10*3/uL 0.01-0.09 = 704-7) Lab Interpretation Abnormal (test code = 47990-7) [facility] GLU[facility]SE (AUTOMATED)2020-08-04 03:54:53 Test Item Value Reference Range Interpretation Comments POCT GLU (test code = 5473303134) 187 mg/dL 70-110 H Lab Interpretation (test code = Abnormal 08589-2) [facility]2020-08-04 02:12:07 Test Item Value Reference Range Interpretation Comments APTT Patient (test code See_Comment H [Au tomated message] = 3173-2) The system [employer] generated this result transmitted ref erence range: 26 - 36 Seconds. The reference range was not used to int erpret this result as normal/abnormal . Lab Interpretation (test Abnormal code = 93740-9) [facility] GLUCOSE (AUTOMATED)2020-08-03 22:18:17 Test Item Value Reference Range Interpretation Comments POCT GLU (test code = 3450726769) 125 mg/dL 70-110 H Lab Interpretation (test code = Abnormal 82250-2) [facility] GLUCOSE (AUTOMATED)2020-08-03 18:00:55 Test Item Value Reference Range Interpretation Comments POCT GLU (test code = 5482425684) 119 mg/dL 70-110 H Lab Interpretation (test code = Abnormal 68364-0) [facility] [id number] 14:31:37 Test Item Value Reference Range Interpretation Comments ABO & RH (test code O POSITIVE Performe d at [facility] = 20) Laboratory Serv [facility] [place] [address]Vedz Free: [phone] A No. [id number] IAT (test code = Negative Performed a t [facility] 1185) [facility] [place], [place] [address]Noe kazt [id number] Free: [phone] A No. [id number] [facility] (NA, K, CL, CO2, GLUCOSE, BUN, CREATININE, CA)2020-08-03 08:05:46 Test Item Value Reference Range Interpretation Comments NA (test code = 136 mmol/L 135-145 3440669611) K (test code = 3.7 mmol/L 3.5-5.0 0712944668) CL (test code = 100 mmol/L 98-108 2655776607) CO2 TOTAL (test code = 30 mmol/L 23-31 0775339824) AGAP (test code = 2-16 0349761678) BUN (test code = 16 mg/dL 7-23 6505668118) GLUCOSE (test code = 101 mg/dL 70-110 2860096584) CREATININE (test code = 1.07 mg/dL 0.60-1.25 7261560955) CALCIUM (test code = 8.2 mg/dL 8.6-10.6 L 7644178605) eGFR Calculation mL/min/1.73m2 (Non-) (test code = 3321663050) eGFR Calculation mL/min/1.73m2 () (test code = 4501281615) DIANE (test code = DIANE) Association of Glomerular Filtration Rate (GFR) and Staging of Kidney Disease* + --+ --+ ------+| GFR (mL/min/1.73 m2) ?| With Kidney Damage ?| ?Without Kidney Damage+ --------+ --------+ +| ?>90 ?| ?Stage one ?| ? Normal ?+ ---+ ---+ -------+| ?60-89 ?| ?Stage two ?| ? Decreased GFR ? + --+ --+ ------+| ?30-59 ?| ?Stage three ?| ? Stage three ? + --+ --+ ------+| ?15-29 ?| ?Stage four ? | ? Stage four ?+ ---+ ---+ -------+| ?<15 (or dialysis) ? ?| ?Stage five ? | ? Stage five ?+ ---+ ---+ -------+ *Each stage assumes the associated GFR level has been in effect for at least three months. ?Stages 1 to 5, with or without kidney disease, indicate chronic kidney disease. Notes: Determination of stages one and two (with eGFR >59mL/min/1.73 m2) requires estimation of kidney damage for at least three months as defined by structural or functional abnormalities of the kidney, manifested by either:Pathological abnormalities or Markers of kidney damage (including abnormalities in the composition of the blood or urine or abnormalities in imaging tests). Lab Interpretation Abnormal (test code = 12352-8) [facility]2020-08-03 07:48:47 Test Item Value Reference Range Interpretation Comments APTT Patient (test code See_Comment H [Au tomated message] = 3173-2) The system [employer] generated this result transmitted ref erence range: 26 - 36 Seconds. The reference range was not used to int erpret this result as normal/abnormal . Lab Interpretation (test Abnormal code = 97209-5) [facility] [id number] 07:41:45 Test Item Value Reference Range Interpretation Comments WBC (test code = See_Comment [Automated 6690-2) message] The sy stem which generated this result transmitted reference range : 4.20 - 10.70 10*3/?L. The reference range was not used to interpret this result as normal/abnormal . RBC (test code = See_Comment L [Automated 789-8) message] The sy stem which generated this result transmitted reference range : 4.26 - 5.52 10*6/?L. The reference range was not used to interpret this result as normal/abnormal . HGB (test code = 7.8 g/dL 12.2-16.4 L 718-7) HCT (test code = 24.8 % 38.4-49.3 L 4544-3) MCV (test code = 88.9 fL 81.7-95.6 787-2) MCH (test code = 28.0 pg 26.1-32.7 785-6) MCHC (test code = 31.5 g/dL 31.2-35.0 786-4) RDW-SD (test code = 56.3 fL 38.5-51.6 H 61807-2) RDW-CV (test code = 17.4 % 12.1-15.4 H 788-0) PLT (test code = See_Comment [Automated 777-3) message] The sy stem which generated this result transmitted reference range : 150 - 328 10*3/ ?L. The reference r batsheva was not used to interpret this result as normal/abnormal . MPV (test code = 9.3 fL 9.8-13.0 L 72451-6) NRBC/100 WBC (test See_Comment [Automat ed code = 0762872352) message] The system which generated this result transmitted reference range : 0.0 - 10.0 /100 WBCs. The refer ence range was not u sed to interpret th is result as normal/abnormal . NRBC x10^3 (test code <0.01 See_Comment [Auto mated = 5548546719) message] The s ystem which generated this result transmitted reference range : 10*3/?L. The reference range was not used to interpret this result as normal/abnormal . GRAN MAT (NEUT) % 64.1 % (test code = 770-8) IMM GRAN % (test code 0.40 % = 3664335792) LYMPH % (test code = 19.4 % 736-9) MONO % (test code = 10.7 % 5905-5) EOS % (test code = 4.9 % 713-8) BASO % (test code = 0.5 % 706-2) GRAN MAT x10^3(ANC) 4.74 10*3/uL 1.99-6.95 (test code = 7412653831) IMM GRAN x10^3 (test 0.03 10*3/uL 0.00-0.06 code = 8677341806) LYMPH x10^3 (test code 1.43 10*3/uL 1.09-3.23 = 731-0) MONO x10^3 (test code 0.79 10*3/uL 0.36-1.02 = 742-7) EOS x10^3 (test code = 0.36 10*3/uL 0.06-0.53 711-2) BASO x10^3 (test code 0.04 10*3/uL 0.01-0.09 = 704-7) Lab Interpretation Abnormal (test code = 23130-1) [facility] GLUCOSE (AUTOMATED)2020-08-03 02:33:23 Test Item Value Reference Range Interpretation Comments POCT GLU (test code = 5002512091) 184 mg/dL 70-110 H Lab Interpretation (test code = Abnormal 27119-0) [facility] GLUCOSE (AUTOMATED)2020-08-02 23:07:40 Test Item Value Reference Range Interpretation Comments POCT GLU (test code = 4472391878) 126 mg/dL 70-110 H Lab Interpretation (test code = Abnormal 78545-8) [facility]ID [facility]2020-08-02 21:12:04 Test Item Value Reference Range Interpretation Comments SARS-CoV-2 Rapid ID NOW Not Detected Not Detected (test code = 70510-4) DIANE (test code = DIANE) ID NOW COVID-19 Assay is an isothermal nucleic acid amplification test intended for the qualitative detection of nucleic acid from SARS-CoV-2 viral RNA in nasopharyngeal (STRAIGHTENING MACHINE OPERATOR) specimens. It is used under Emergency Use Authorization (EUA) by FDA. The limit of detection (LOD) of the assay is 125 Genome Equivalents/mL. A positive result is indicative of the presence of SARS-CoV-2 RNA. ?Clinical correlation with patient history and other diagnostic [...] for repeat patient testing if clinically indicated. Lab Interpretation Normal (test code = 33756-0) [facility]2020-08-02 19:14:29 Test Item Value Reference Range Interpretation Comments APTT Patient (test code See_Comment H [Au tomated message] = 3173-2) The system [employer] generated this result transmitted ref erence range: 26 - 36 Seconds. The reference range was not used to int erpret this result as normal/abnormal . Lab Interpretation (test Abnormal code = 25985-4) [facility] GLUCOSE (AUTOMATED)2020-08-02 18:40:15 Test Item Value Reference Range Interpretation Comments POCT GLU (test code = 2810610752) 131 mg/dL 70-110 H Lab Interpretation (test code = Abnormal 72346-5) [facility] GLUCOSE (AUTOMATED)2020-08-02 13:57:10 Test Item Value Reference Range Interpretation Comments POCT GLU (test code = 9367796368) 80 mg/dL 70-110 Lab Interpretation (test code = Normal 42929-0) [facility] METABOLIC PANEL (NA, K, CL, CO2, GLUCOSE, BUN, CREATININE, CA)2020-08-02 12:02:41 Test Item Value Reference Range Interpretation Comments NA (test code = 136 mmol/L 135-145 3657443121) K (test code = 3.8 mmol/L 3.5-5.0 7394482401) CL (test code = 98 mmol/L 98-108 3324243988) CO2 TOTAL (test code = 32 mmol/L 23-31 H 0434970918) AGAP (test code = 2-16 0399517834) BUN (test code = 17 mg/dL 7-23 2054172132) GLUCOSE (test code = 63 mg/dL 70-110 L 7404891116) CREATININE (test code = 1.15 mg/dL 0.60-1.25 8377731003) CALCIUM (test code = 8.4 mg/dL 8.6-10.6 L 2666941408) eGFR Calculation mL/min/1.73m2 (Non-) (test code = 0976223441) eGFR Calculation mL/min/1.73m2 () (test code = 5663274433) DIANE (test code = DIANE) Association of Glomerular Filtration Rate (GFR) and Staging of Kidney Disease* + --+ --+ ------+| GFR (mL/min/1.73 m2) ?| With Kidney Damage ?| ?Without Kidney Damage+ --------+ --------+ +| ?>90 ?| ?Stage one ?| ? Normal ?+ ---+ ---+ -------+| ?60-89 ?| ?Stage two ?| ? Decreased GFR ? + --+ --+ ------+| ?30-59 ?| ?Stage three ?| ? Stage three ? + --+ --+ ------+| ?15-29 ?| ?Stage four ? | ? Stage four ?+ ---+ ---+ -------+| ?<15 (or dialysis) ? ?| ?Stage five ? | ? Stage five ?+ ---+ ---+ -------+ *Each stage assumes the associated GFR level has been in effect for at least three months. ?Stages 1 to 5, with or without kidney disease, indicate chronic kidney disease. Notes: Determination of stages one and two (with eGFR >59mL/min/1.73 m2) requires estimation of kidney damage for at least three months as defined by structural or functional abnormalities of the kidney, manifested by either:Pathological abnormalities or Markers of kidney damage (including abnormalities in the composition of the blood or urine or abnormalities in imaging tests). Lab Interpretation Abnormal (test code = 08689-7) [facility]2020-08-02 11:57:00 Test Item Value Reference Range Interpretation Comments APTT Patient (test code See_Comment H [Au tomated message] = 3173-2) The system [employer] generated this result transmitted ref erence range: 26 - 36 Seconds. The reference range was not used to int erpret this result as normal/abnormal . Lab Interpretation (test Abnormal code = 36563-2) [facility] [id number] 11:39:22 Test Item Value Reference Range Interpretation Comments WBC (test code = See_Comment [Automated 6290-2) message] The sy stem which generated this result transmitted reference range : 4.20 - 10.70 10*3/?L. The reference range was not used to interpret this result as normal/abnormal . RBC (test code = See_Comment L [Automated 108-8) message] The sy stem which generated this result transmitted reference range : 4.26 - 5.52 10*6/?L. The reference range was not used to interpret this result as normal/abnormal . HGB (test code = 8.0 g/dL 12.2-16.4 L 718-7) HCT (test code = 25.2 % 38.4-49.3 L 4544-3) MCV (test code = 87.8 fL 81.7-95.6 787-2) MCH (test code = 27.9 pg 26.1-32.7 785-6) MCHC (test code = 31.7 g/dL 31.2-35.0 786-4) RDW-SD (test code = 55.2 fL 38.5-51.6 H 09737-1) RDW-CV (test code = 17.5 % 12.1-15.4 H 788-0) PLT (test code = See_Comment H [Automated 777-3) message] The sy stem which generated this result transmitted reference range : 150 - 328 10*3/ ?L. The reference r batsheva was not used to interpret this result as normal/abnormal . MPV (test code = 10.0 fL 9.8-13.0 51395-3) NRBC/100 WBC (test See_Comment [Automat ed code = 2108254039) message] The system which generated this result transmitted reference range : 0.0 - 10.0 /100 WBCs. The refer ence range was not u sed to interpret th is result as normal/abnormal . NRBC x10^3 (test code <0.01 See_Comment [Auto mated = 9650704611) message] The s ystem which generated this result transmitted reference range : 10*3/?L. The reference range was not used to interpret this result as normal/abnormal . GRAN MAT (NEUT) % 62.8 % (test code = 770-8) IMM GRAN % (test code 0.10 % = 2871509708) LYMPH % (test code = 20.7 % 736-9) MONO % (test code = 10.6 % 5905-5) EOS % (test code = 5.4 % 713-8) BASO % (test code = 0.4 % 706-2) GRAN MAT x10^3(ANC) 4.98 10*3/uL 1.99-6.95 (test code = 0323446496) IMM GRAN x10^3 (test <0.03 0.00-0.06 code = 2122265580) LYMPH x10^3 (test code 1.64 10*3/uL 1.09-3.23 = 731-0) MONO x10^3 (test code 0.84 10*3/uL 0.36-1.02 = 742-7) EOS x10^3 (test code = 0.43 10*3/uL 0.06-0.53 711-2) BASO x10^3 (test code 0.03 10*3/uL 0.01-0.09 = 704-7) Lab Interpretation Abnormal (test code = 96321-5) [facility] (for use with Heparin Drip)2020-08-02 06:27:34 Test Item Value Reference Range Interpretation Comments APTT Patient (test code See_Comment H [Au tomated message] = 3173-2) The system [employer] generated this result transmitted ref erence range: 26 - 36 Seconds. The reference range was not used to int erpret this result as normal/abnormal . Lab Interpretation (test Abnormal code = 69417-7) [facility] GLUCOSE (AUTOMATED)2020-08-02 01:46:02 Test Item Value Reference Range Interpretation Comments POCT GLU (test code = 6337519341) 227 mg/dL 70-110 H Lab Interpretation (test code = Abnormal 20251-8) [facility] (for use with Heparin Drip)2020-08-01 20:50:05 Test Item Value Reference Range Interpretation Comments APTT Patient (test code See_Comment H [Au tomated message] = 3173-2) The system [employer] generated this result transmitted ref erence range: 26 - 36 Seconds. The reference range was not used to int erpret this result as normal/abnormal . Lab Interpretation (test Abnormal code = 91410-6) [facility]SE (AUTOMATED)2020-08-01 14:54:14 Test Item Value Reference Range Interpretation Comments POCT GLU (test code = 9570239041) 96 mg/dL 70-110 Lab Interpretation (test code = Normal 65830-4) [facility] (for use with Heparin Drip)2020-08-01 11:28:39 Test Item Value Reference Range Interpretation Comments APTT Patient (test code >150 See_Comment HH [Au tomated message] = 3173-2) The system [employer] generated this result transmitted ref erence range: 26 - 36 Seconds. The reference range was not used to int erpret this result as normal/abnormal . Lab Interpretation (test Abnormal code = 07056-8) [facility] METABOLIC PANEL (NA, K, CL, CO2, GLUCOSE, BUN, CREATININE, CA)2020-08-01 11:11:41 Test Item Value Reference Range Interpretation Comments NA (test code = 137 mmol/L 135-145 7018699213) K (test code = 3.7 mmol/L 3.5-5.0 1094693981) CL (test code = 100 mmol/L 98-108 7200185485) CO2 TOTAL (test code = 30 mmol/L 23-31 4697403654) AGAP (test code = 2-16 9134699423) BUN (test code = 17 mg/dL 7-23 1329859740) GLUCOSE (test code = 96 mg/dL 70-110 8998454461) CREATININE (test code = 1.09 mg/dL 0.60-1.25 3782549496) CALCIUM (test code = 8.0 mg/dL 8.6-10.6 L 3002484273) eGFR Calculation mL/min/1.73m2 (Non-) (test code = 5425915990) eGFR Calculation mL/min/1.73m2 () (test code = 2435563428) DIANE (test code = DIANE) Association of Glomerular Filtration Rate (GFR) and Staging of Kidney Disease* + --+ --+ ------+| GFR (mL/min/1.73 m2) ?| With Kidney Damage ?| ?Without Kidney Damage+ --------+ --------+ +| ?>90 ?| ?Stage one ?| ? Normal ?+ ---+ ---+ -------+| ?60-89 ?| ?Stage two ?| ? Decreased GFR ? + --+ --+ ------+| ?30-59 ?| ?Stage three ?| ? Stage three ? + --+ --+ ------+| ?15-29 ?| ?Stage four ? | ? Stage four ?+ ---+ ---+ -------+| ?<15 (or dialysis) ? ?| ?Stage five ? | ? Stage five ?+ ---+ ---+ -------+ *Each stage assumes the associated GFR level has been in effect for at least three months. ?Stages 1 to 5, with or without kidney disease, indicate chronic kidney disease. Notes: Determination of stages one and two (with eGFR >59mL/min/1.73 m2) requires estimation of kidney damage for at least three months as defined by structural or functional abnormalities of the kidney, manifested by either:Pathological abnormalities or Markers of kidney damage (including abnormalities in the composition of the blood or urine or abnormalities in imaging tests). Lab Interpretation Abnormal (test code = 49410-8) [facility] WITH [id number] 11:04:41 Test Item Value Reference Range Interpretation Comments WBC (test code = See_Comment [Automated 6690-2) message] The sy stem which generated this result transmitted reference range : 4.20 - 10.70 10*3/?L. The reference range was not used to interpret this result as normal/abnormal . RBC (test code = See_Comment L [Automated 789-8) message] The sy stem which generated this result transmitted reference range : 4.26 - 5.52 10*6/?L. The reference range was not used to interpret this result as normal/abnormal . HGB (test code = 7.9 g/dL 12.2-16.4 L 718-7) HCT (test code = 25.4 % 38.4-49.3 L 4544-3) MCV (test code = 88.8 fL 81.7-95.6 787-2) MCH (test code = 27.6 pg 26.1-32.7 785-6) MCHC (test code = 31.1 g/dL 31.2-35.0 L 786-4) RDW-SD (test code = 54.6 fL 38.5-51.6 H 20158-7) RDW-CV (test code = 17.3 % 12.1-15.4 H 788-0) PLT (test code = See_Comment H [Automated 777-3) message] The sy stem which generated this result transmitted reference range : 150 - 328 10*3/ ?L. The reference r batsheva was not used to interpret this result as normal/abnormal . MPV (test code = 10.0 fL 9.8-13.0 01604-2) NRBC/100 WBC (test See_Comment [Automat ed code = 4526662622) message] The system which generated this result transmitted reference range : 0.0 - 10.0 /100 WBCs. The refer ence range was not u sed to interpret th is result as normal/abnormal . NRBC x10^3 (test code <0.01 See_Comment [Auto mated = [id number]) message] The s ystem which generated this result transmitted reference range : 10*3/?L. The reference range was not used to interpret this result as normal/abnormal . GRAN MAT (NEUT) % 61.0 % (test code = 770-8) IMM GRAN % (test code 0.30 % = 6280963226) LYMPH % (test code = 21.7 % 736-9) MONO % (test code = 9.9 % 5905-5) EOS % (test code = 6.3 % 713-8) BASO % (test code = 0.8 % 706-2) GRAN MAT x10^3(ANC) 4.64 10*3/uL 1.99-6.95 (test code = 8865939019) IMM GRAN x10^3 (test <0.03 0.00-0.06 code = 9290970559) LYMPH x10^3 (test code 1.65 10*3/uL 1.09-3.23 = 731-0) MONO x10^3 (test code 0.75 10*3/uL 0.36-1.02 = 742-7) EOS x10^3 (test code = 0.48 10*3/uL 0.06-0.53 711-2) BASO x10^3 (test code 0.06 10*3/uL 0.01-0.09 = 704-7) Lab Interpretation Abnormal (test code = 06547-8) [facility]29:39 Test Item Value Reference Range Interpretation Comments POCT GLU (test code = 6895194375) 111 mg/dL 70-110 H Lab Interpretation (test code = Abnormal 05080-4) [facility]2020-07-31 23:24:55 Test Item Value Reference Range Interpretation Comments APTT Patient (test code See_Comment H [Au tomated message] = 3173-2) The system [employer] generated this result transmitted ref erence range: 26 - 36 Seconds. The reference range was not used to int erpret this result as normal/abnormal . Lab Interpretation (test Abnormal code = 51748-6) [facility] GLU[facility]SE (AUT[facility]ATED)2020-07-31 23:15:24 Test Item Value Reference Range Interpretation Comments POCT GLU (test code = 8719286420) 182 mg/dL 70-110 H Lab Interpretation (test code = Abnormal 22597-5) [facility] GLUCOSE (AUT[facility]ATED)2020-07-31 19:13:54 Test Item Value Reference Range Interpretation Comments POCT GLU (test code = 9563103130) 90 mg/dL 70-110 Lab Interpretation (test code = Normal 38499-3) [facility] GLUCOSE (AUTOMATED)2020-07-31 14:14:20 Test Item Value Reference Range Interpretation Comments POCT GLU (test code = 9206666130) 86 mg/dL 70-110 Lab Interpretation (test code = Normal 31292-6) [facility]. METABOLIC PANEL (85971)2020-07-31 13:32:03 Test Item Value Reference Range Interpretation Comments NA (test code = 137 mmol/L 135-145 6971178227) K (test code = 3.5 mmol/L 3.5-5.0 4337943412) CL (test code = 100 mmol/L 98-108 5879010033) CO2 TOTAL (test code = 31 mmol/L 23-31 4172115053) AGAP (test code = 2-16 0852320954) BUN (test code = 16 mg/dL 7-23 6604126291) GLUCOSE (test code = 84 mg/dL 70-110 4817437095) CREATININE (test code = 1.10 mg/dL 0.60-1.25 1548336507) TOTAL BILI (test code = 0.3 mg/dL 0.1-1.5 6984350023) CALCIUM (test code = 8.2 mg/dL 8.6-10.6 L 4215965069) T PROTEIN (test code = 6.6 g/dL 6.3-8.2 0185232884) ALBUMIN (test code = 3.3 g/dL 3.5-5.0 L 8249521369) ALK PHOS (test code = 236 U/L 34-122 H 2179427110) ALTv (test code = 17 U/L 5-50 1742-6) AST(SGOT) (test code = 49 U/L 13-40 H 5119873342) eGFR Calculation mL/min/1.73m2 (Non-) (test code = 2646330980) eGFR Calculation mL/min/1.73m2 () (test code = 3437777597) DIANE (test code = DIANE) Association of Glomerular Filtration Rate (GFR) and Staging of Kidney Disease* + --+ --+ ------+| GFR (mL/min/1.73 m2) ?| With Kidney Damage ?| ?Without Kidney Damage+ --------+ --------+ +| ?>90 ?| ?Stage one ?| ? Normal ?+ ---+ ---+ -------+| ?60-89 ?| ?Stage two ?| ? Decreased GFR ? + --+ --+ ------+| ?30-59 ?| ?Stage three ?| ? Stage three ? + --+ --+ ------+| ?15-29 ?| ?Stage four ? | ? Stage four ?+ ---+ ---+ -------+| ?<15 (or dialysis) ? ?| ?Stage five ? | ? Stage five ?+ ---+ ---+ -------+ *Each stage assumes the associated GFR level has been in effect for at least three months. ?Stages 1 to 5, with or without kidney disease, indicate chronic kidney disease. Notes: Determination of stages one and two (with eGFR >59mL/min/1.73 m2) requires estimation of kidney damage for at least three months as defined by structural or functional abnormalities of the kidney, manifested by either:Pathological abnormalities or Markers of kidney damage (including abnormalities in the composition of the blood or urine or abnormalities in imaging tests). Lab Interpretation Abnormal (test code = 35380-5) [facility]2020-07-31 12:49:19 Test Item Value Reference Range Interpretation Comments APTT Patient (test code See_Comment H [Au tomated message] = 3173-2) The system whic h generated this result transmitted ref erence range: 26 - 36 Seconds. The reference range was not used to int erpret this result as normal/abnormal . Lab Interpretation (test Abnormal code = 76284-7) [facility] / [id number] 12:49:19 Test Item Value Reference Range Interpretation Comments PROTIME PATIENT (test See_Comment H [Auto mated message] code = 5964-2) The system wh ich generated this result transmitted ref erence range: 10.1 - 1 2.6 Seconds. The reference range was not used to int erpret this result as normal/abnormal . INR (test code = 6301-6) Nor mal INR <1.1; Warfarin Therap eutic range 2.0 to 3. 0 or 2.5 to 3.5, dep ending upon the indica tions. Lab Interpretation (test Abnormal code = 65037-1) [facility] [id number] 12:44:35 Test Item Value Reference Range Interpretation Comments WBC (test code = See_Comment [Automated 6690-2) message] The sy stem which generated this result transmitted reference range : 4.20 - 10.70 10*3/?L. The reference range was not used to interpret this result as normal/abnormal . RBC (test code = See_Comment L [Automated 789-8) message] The sy stem which generated this result transmitted reference range : 4.26 - 5.52 10*6/?L. The reference range was not used to interpret this result as normal/abnormal . HGB (test code = 7.8 g/dL 12.2-16.4 L 718-7) HCT (test code = 24.4 % 38.4-49.3 L 4544-3) MCV (test code = 86.2 fL 81.7-95.6 787-2) MCH (test code = 27.6 pg 26.1-32.7 785-6) MCHC (test code = 32.0 g/dL 31.2-35.0 786-4) RDW-SD (test code = 52.8 fL 38.5-51.6 H 61471-0) RDW-CV (test code = 17.4 % 12.1-15.4 H 788-0) PLT (test code = See_Comment H [Automated 777-3) message] The sy stem which generated this result transmitted reference range : 150 - 328 10*3/ ?L. The reference r batsheva was not used to interpret this result as normal/abnormal . MPV (test code = 9.1 fL 9.8-13.0 L 47647-0) NRBC/100 WBC (test See_Comment [Automat ed code = 2948044827) message] The system which generated this result transmitted reference range : 0.0 - 10.0 /100 WBCs. The refer ence range was not u sed to interpret th is result as normal/abnormal . NRBC x10^3 (test code <0.01 See_Comment [Auto mated = 2434889811) message] The s ystem which generated this result transmitted reference range : 10*3/?L. The reference range was not used to interpret this result as normal/abnormal . GRAN MAT (NEUT) % 59.6 % (test code = 770-8) IMM GRAN % (test code 0.40 % = 9707197455) LYMPH % (test code = 23.2 % 736-9) MONO % (test code = 9.9 % 5905-5) EOS % (test code = 6.4 % 713-8) BASO % (test code = 0.5 % 706-2) GRAN MAT x10^3(ANC) 4.56 10*3/uL 1.99-6.95 (test code = 5496742188) IMM GRAN x10^3 (test 0.03 10*3/uL 0.00-0.06 code = 6798357713) LYMPH x10^3 (test code 1.78 10*3/uL 1.09-3.23 = 731-0) MONO x10^3 (test code 0.76 10*3/uL 0.36-1.02 = 742-7) EOS x10^3 (test code = 0.49 10*3/uL 0.06-0.53 711-2) BASO x10^3 (test code 0.04 10*3/uL 0.01-0.09 = 704-7) Lab Interpretation Abnormal (test code = 21883-5) [facility] GLUCOSE (AUTOMATED)2020-07-31 02:13:25 Test Item Value Reference Range Interpretation Comments POCT GLU (test code = 8879468743) 175 mg/dL 70-110 H Lab Interpretation (test code = Abnormal 63269-7) [facility] GLUCOSE (AUTOMATED)2020-07-30 22:40:42 Test Item Value Reference Range Interpretation Comments POCT GLU (test code = 5049909311) 130 mg/dL 70-110 H Lab Interpretation (test code = Abnormal 82401-1) [facility] Center[facility] [id number] 20:55:18 Test Item Value Reference Range Interpretation Comments NT-proBNP (test code 3270 pg/mL See_Comment H [Autom ated = 1294974620) message] The system which generated this result transmitted reference range : <=125. The reference range was not used to interpret this result as normal/abnormal . DIANE (test code = DIANE) Biotin has been reported to cause a negative bias, interpret results relative to patient's use of biotin. Lab Interpretation Abnormal (test code = 42052-9) [facility] GLUCOSE (AUTOMATED)2020-07-30 17:53:57 Test Item Value Reference Range Interpretation Comments POCT GLU (test code = 8517601704) 106 mg/dL 70-110 Lab Interpretation (test code = Normal 28138-7) [facility] GLUCOSE (AUTOMATED)2020-07-30 14:12:30 Test Item Value Reference Range Interpretation Comments POCT GLU (test code = 6696471089) 98 mg/dL 70-110 Lab Interpretation (test code = Normal 39667-7) [facility] Basic Metabolic Panel (NA, K, CL, CO2, GLUCOSE, BUN, CREATININE, CA)2020-07-30 12:54:25 Test Item Value Reference Range Interpretation Comments NA (test code = 140 mmol/L 135-145 8554496694) K (test code = 3.5 mmol/L 3.5-5.0 0382650259) CL (test code = 102 mmol/L 98-108 4270701313) CO2 TOTAL (test code = 30 mmol/L 23-31 0625426749) AGAP (test code = 2-16 3819569567) BUN (test code = 13 mg/dL 7-23 0767295188) GLUCOSE (test code = 78 mg/dL 70-110 4686331720) CREATININE (test code = 0.96 mg/dL 0.60-1.25 2893336813) CALCIUM (test code = 8.4 mg/dL 8.6-10.6 L 9943092225) eGFR Calculation mL/min/1.73m2 (Non-) (test code = 1226887663) eGFR Calculation mL/min/1.73m2 () (test code = 1373131256) DIANE (test code = DIANE) Association of Glomerular Filtration Rate (GFR) and Staging of Kidney Disease* + --+ --+ ------+| GFR (mL/min/1.73 m2) ?| With Kidney Damage ?| ?Without Kidney Damage+ --------+ --------+ +| ?>90 ?| ?Stage one ?| ? Normal ?+ ---+ ---+ -------+| ?60-89 ?| ?Stage two ?| ? Decreased GFR ? + --+ --+ ------+| ?30-59 ?| ?Stage three ?| ? Stage three ? + --+ --+ ------+| ?15-29 ?| ?Stage four ? | ? Stage four ?+ ---+ ---+ -------+| ?<15 (or dialysis) ? ?| ?Stage five ? | ? Stage five ?+ ---+ ---+ -------+ *Each stage assumes the associated GFR level has been in effect for at least three months. ?Stages 1 to 5, with or without kidney disease, indicate chronic kidney disease. Notes: Determination of stages one and two (with eGFR >59mL/min/1.73 m2) requires estimation of kidney damage for at least three months as defined by structural or functional abnormalities of the kidney, manifested by either:Pathological abnormalities or Markers of kidney damage (including abnormalities in the composition of the blood or urine or abnormalities in imaging tests). Lab Interpretation Abnormal (test code = 65699-1) [facility] with [id number] 12:52:48 Test Item Value Reference Range Interpretation Comments WBC (test code = See_Comment [Automated 6690-2) message] The sy stem which generated this result transmitted reference range : 4.20 - 10.70 10*3/?L. The reference range was not used to interpret this result as normal/abnormal . RBC (test code = See_Comment L [Automated 789-8) message] The sy stem which generated this result transmitted reference range : 4.26 - 5.52 10*6/?L. The reference range was not used to interpret this result as normal/abnormal . HGB (test code = 7.8 g/dL 12.2-16.4 L 718-7) HCT (test code = 24.6 % 38.4-49.3 L 4544-3) MCV (test code = 86.3 fL 81.7-95.6 787-2) MCH (test code = 27.4 pg 26.1-32.7 785-6) MCHC (test code = 31.7 g/dL 31.2-35.0 786-4) RDW-SD (test code = 50.4 fL 38.5-51.6 07052-4) RDW-CV (test code = 16.7 % 12.1-15.4 H 788-0) PLT (test code = See_Comment H [Automated 777-3) message] The sy stem which generated this result transmitted reference range : 150 - 328 10*3/ ?L. The reference r batsheva was not used to interpret this result as normal/abnormal . MPV (test code = 9.6 fL 9.8-13.0 L 27018-4) NRBC/100 WBC (test See_Comment [Automat ed code = 9733263330) message] The system which generated this result transmitted reference range : 0.0 - 10.0 /100 WBCs. The refer ence range was not u sed to interpret th is result as normal/abnormal . NRBC x10^3 (test code <0.01 See_Comment [Auto mated = 4359774046) message] The s ystem which generated this result transmitted reference range : 10*3/?L. The reference range was not used to interpret this result as normal/abnormal . GRAN MAT (NEUT) % 69.8 % (test code = 770-8) IMM GRAN % (test code 0.40 % = 4570873037) LYMPH % (test code = 16.3 % 736-9) MONO % (test code = 8.4 % 5905-5) EOS % (test code = 4.6 % 713-8) BASO % (test code = 0.5 % 706-2) GRAN MAT x10^3(ANC) 5.62 10*3/uL 1.99-6.95 (test code = 0508221162) IMM GRAN x10^3 (test 0.03 10*3/uL 0.00-0.06 code = 6696246066) LYMPH x10^3 (test code 1.31 10*3/uL 1.09-3.23 = 731-0) MONO x10^3 (test code 0.68 10*3/uL 0.36-1.02 = 742-7) EOS x10^3 (test code = 0.37 10*3/uL 0.06-0.53 711-2) BASO x10^3 (test code 0.04 10*3/uL 0.01-0.09 = 704-7) Lab Interpretation Abnormal (test code = 46565-8) [facility] GLUCOSE (AUTOMATED)2020-07-29 22:41:49 Test Item Value Reference Range Interpretation Comments POCT GLU (test code = 1498138824) 97 mg/dL 70-110 Lab Interpretation (test code = Normal 61745-5) [facility] GLUCOSE (AUTOMATED)2020-07-29 17:34:32 Test Item Value Reference Range Interpretation Comments POCT GLU (test code = 5903445487) 148 mg/dL 70-110 H Lab Interpretation (test code = Abnormal 21968-6) [facility] GLUCOSE (AUTOMATED)2020-07-29 14:03:27 Test Item Value Reference Range Interpretation Comments POCT GLU (test code = 7748312995) 96 mg/dL 70-110 Lab Interpretation (test code = Normal 09123-4) [facility] Basic Metabolic Panel (NA, K, CL, CO2, GLUCOSE, BUN, CREATININE, CA)2020-07-29 11:44:04 Test Item Value Reference Range Interpretation Comments NA (test code = 139 mmol/L 135-145 4710327079) K (test code = 3.8 mmol/L 3.5-5.0 2163023183) CL (test code = 105 mmol/L 98-108 8484620232) CO2 TOTAL (test code = 26 mmol/L 23-31 6796686805) AGAP (test code = 2-16 4193128833) BUN (test code = 14 mg/dL 7-23 1796857635) GLUCOSE (test code = 74 mg/dL 70-110 7457610565) CREATININE (test code = 0.90 mg/dL 0.60-1.25 7122654508) CALCIUM (test code = 8.3 mg/dL 8.6-10.6 L 7034564891) eGFR Calculation mL/min/1.73m2 (Non-) (test code = 1333200106) eGFR Calculation mL/min/1.73m2 () (test code = 9823433955) DIANE (test code = DIANE) Association of Glomerular Filtration Rate (GFR) and Staging of Kidney Disease* + --+ --+ ------+| GFR (mL/min/1.73 m2) ?| With Kidney Damage ?| ?Without Kidney Damage+ --------+ --------+ +| ?>90 ?| ?Stage one ?| ? Normal ?+ ---+ ---+ -------+| ?60-89 ?| ?Stage two ?| ? Decreased GFR ? + --+ --+ ------+| ?30-59 ?| ?Stage three ?| ? Stage three ? + --+ --+ ------+| ?15-29 ?| ?Stage four ? | ? Stage four ?+ ---+ ---+ -------+| ?<15 (or dialysis) ? ?| ?Stage five ? | ? Stage five ?+ ---+ ---+ -------+ *Each stage assumes the associated GFR level has been in effect for at least three months. ?Stages 1 to 5, with or without kidney disease, indicate chronic kidney disease. Notes: Determination of stages one and two (with eGFR >59mL/min/1.73 m2) requires estimation of kidney damage for at least three months as defined by structural or functional abnormalities of the kidney, manifested by either:Pathological abnormalities or Markers of kidney damage (including abnormalities in the composition of the blood or urine or abnormalities in imaging tests). Lab Interpretation Abnormal (test code = 96868-6) [facility] [id number] 10:27:53 Test Item Value Reference Range Interpretation Comments WBC (test code = See_Comment [Automated 6690-2) message] The sy stem which generated this result transmitted reference range : 4.20 - 10.70 10*3/?L. The reference range was not used to interpret this result as normal/abnormal . RBC (test code = See_Comment L [Automated 789-8) message] The sy stem which generated this result transmitted reference range : 4.26 - 5.52 10*6/?L. The reference range was not used to interpret this result as normal/abnormal . HGB (test code = 7.7 g/dL 12.2-16.4 L 718-7) HCT (test code = 23.6 % 38.4-49.3 L 4544-3) MCV (test code = 85.8 fL 81.7-95.6 787-2) MCH (test code = 28.0 pg 26.1-32.7 785-6) MCHC (test code = 32.6 g/dL 31.2-35.0 786-4) RDW-SD (test code = 48.8 fL 38.5-51.6 84825-0) RDW-CV (test code = 16.6 % 12.1-15.4 H 788-0) PLT (test code = See_Comment H [Automated 777-3) message] The sy stem which generated this result transmitted reference range : 150 - 328 10*3/ ?L. The reference r batsheva was not used to interpret this result as normal/abnormal . MPV (test code = 9.8 fL 9.8-13.0 59942-1) NRBC/100 WBC (test See_Comment [Automat ed code = 4901420391) message] The system which generated this result transmitted reference range : 0.0 - 10.0 /100 WBCs. The refer ence range was not u sed to interpret th is result as normal/abnormal . NRBC x10^3 (test code <0.01 See_Comment [Auto mated = 2449193725) message] The s ystem which generated this result transmitted reference range : 10*3/?L. The reference range was not used to interpret this result as normal/abnormal . GRAN MAT (NEUT) % 73.4 % (test code = 770-8) IMM GRAN % (test code 0.30 % = 0056447405) LYMPH % (test code = 14.8 % 736-9) MONO % (test code = 7.6 % 5905-5) EOS % (test code = 3.5 % 713-8) BASO % (test code = 0.4 % 706-2) GRAN MAT x10^3(ANC) 5.80 10*3/uL 1.99-6.95 (test code = 2305314420) IMM GRAN x10^3 (test <0.03 0.00-0.06 code = 0619945044) LYMPH x10^3 (test code 1.17 10*3/uL 1.09-3.23 = 731-0) MONO x10^3 (test code 0.60 10*3/uL 0.36-1.02 = 742-7) EOS x10^3 (test code = 0.28 10*3/uL 0.06-0.53 711-2) BASO x10^3 (test code 0.03 10*3/uL 0.01-0.09 = 704-7) Lab Interpretation Abnormal (test code = 12353-4) [facility] [id number] 03:40:47COVID DMT InterpretationInterpretation/Recommendations: Molecular NAAT Tests for Active Infection with the SARS-CoV-2 Virus: The patient has currently tested negative for the SARS-CoV-2 virus that causes COVID-19 illness. This most likely indicates that the patient does not have an active infection with the SARS-CoV-2 virus. However, infection is not completely ruled out as the false negative rate for molecular NAAT testing using a nasopharyngeal sample can be up to 30%, mostly dependent on the timing of sample collection in relation to illness onset and any deficiencies in sampling techniques. If the patient has symptoms concerning for COVID-19 illness, a repeat NAAT test (PCR, Rapid ID Now, etc.) should be performed, at which time the SARS-CoV-2 virus - if present - may have reached a detectable viral load (usually peaking by the end of the first week of symptoms). Tests for IgM and/or IgGAntibodies to the SARS-CoV-2 Virus: If the patient develops COVID-19 illness in the future, testingfor IgM and IgG antibodies approximately 3 weeks after illness onset will likely indicate if the patient has produced antibodies to the SARS-CoV-2 virus. However, some patients may take longer to develop detectable antibodies, while some patients who were infected with SARS-CoV-2 may never develop antibodies. While antibodies to SARS-CoV-2 may provide some degree of immunity, at this time the strength and duration of the antibody response is unknown. Interpretation Result Comments:These interpretation comments are based upon all COVID-19 testing the patient has had at [facility], including molecular NAAT testing (more commonly known as PCR testing and Rapid ID Now testing) and antibody testing. It does not take into account any testing that a patient has had outside of the [facility] medical record. [facility] LABORATORY SERVICESCOVID Resu ipkHBEZ-HkA-[id number] Rapid ID NOW (no units) ? ? Date ? Value ? 07/27/2020 ? Not Detected ? ? ? 07/16/2020 ? Not Detected ? ? ? 07/10/2020 ?Not Detected ? ? ? 05/29/2020 ? Not Detected ? ? ? 03/16/2020 ? Not Detected ? ? ? 02/03/2020 ? Not Detected ? ? ? 11/16/2019 ? Not Detected ? ? ? 09/17/2019 ? Not Detected ? [facility] 02:28:01 Test Item Value Reference Range Interpretation Comments POCT GLU (test code = 7820932626) 94 mg/dL 70-110 Lab Interpretation (test code = Normal 54190-8) [facility] GLUCOSE (AUTOMATED)2020-07-28 22:47:00 Test Item Value Reference Range Interpretation Comments POCT GLU (test code = 4871319497) 96 mg/dL 70-110 Lab Interpretation (test code = Normal 78626-8) [facility] GLUCOSE (AUTOMATED)2020-07-28 18:15:16 Test Item Value Reference Range Interpretation Comments POCT GLU (test code = 6808682871) 126 mg/dL 70-110 H Lab Interpretation (test code = Abnormal 11314-0) [facility] [id number] 15:30:53 Test Item Value Reference Range Interpretation Comments TROPONIN I (test 0.027 ng/mL See_Comment [Automated code = 2506094924) message] The system which generated this result transmitted reference range : <=0.034. The reference range was not used to interpret this result as normal/abnormal . DIANE (test code = Equal or Less than DIANE) 0.034 ng/ml---Normal ?Note: Cardiac troponin begins to rise 3-4 hours after the onset of ischemia. Repeat in 4-6 hours if the sample was drawn within 3-4 hours of the onset of the symptom and found normal. Between 0.035 and 0.120 ng/mL--- Borderline. Questionable myocardial injury or necrosis ? ?Note: Serial measurement may be necessary to confirm or exclude the diagnosis of myocardial injury or necrosis; Clinical correlation (symptoms, EKGs, imaging studies, and others) required; Repeat in 4-6 hours if clinically indicated. ? Equal or Higher than 0.121 ng/mL---Abnormal. Myocardial Injury or Necrosis Likely ? Biotin has been reported to cause a negative bias, interpret results relative to patient's use of biotin. ? Lab Interpretation Normal (test code = 01229-0) [facility] (NA, K, CL, CO2, GLUCOSE, BUN, CREATININE, CA)2020-07-28 15:10:53 Test Item Value Reference Range Interpretation Comments NA (test code = 141 mmol/L 135-145 4803011199) K (test code = 3.6 mmol/L 3.5-5.0 3118822340) CL (test code = 107 mmol/L 98-108 4040938669) CO2 TOTAL (test code = 25 mmol/L 23-31 1680623287) AGAP (test code = 2-16 0679209824) BUN (test code = 14 mg/dL 7-23 9161346204) GLUCOSE (test code = 170 mg/dL 70-110 H 4940748238) CREATININE (test code = 1.01 mg/dL 0.60-1.25 9079897436) CALCIUM (test code = 8.6 mg/dL 8.6-10.6 7853912905) eGFR Calculation mL/min/1.73m2 (Non-) (test code = 1221256674) eGFR Calculation mL/min/1.73m2 () (test code = 4705575146) DIANE (test code = DIANE) Association of Glomerular Filtration Rate (GFR) and Staging of Kidney Disease* + --+ --+ ------+| GFR (mL/min/1.73 m2) ?| With Kidney Damage ?| ?Without Kidney Damage+ --------+ --------+ +| ?>90 ?| ?Stage one ?| ? Normal ?+ ---+ ---+ -------+| ?60-89 ?| ?Stage two ?| ? Decreased GFR ? + --+ --+ ------+| ?30-59 ?| ?Stage three ?| ? Stage three ? + --+ --+ ------+| ?15-29 ?| ?Stage four ? | ? Stage four ?+ ---+ ---+ -------+| ?<15 (or dialysis) ? ?| ?Stage five ? | ? Stage five ?+ ---+ ---+ -------+ *Each stage assumes the associated GFR level has been in effect for at least three months. ?Stages 1 to 5, with or without kidney disease, indicate chronic kidney disease. Notes: Determination of stages one and two (with eGFR >59mL/min/1.73 m2) requires estimation of kidney damage for at least three months as defined by structural or functional abnormalities of the kidney, manifested by either:Pathological abnormalities or Markers of kidney damage (including abnormalities in the composition of the blood or urine or abnormalities in imaging tests). Lab Interpretation Abnormal (test code = 62561-4) [facility] [id number] 13:37:24 Test Item Value Reference Range Interpretation Comments NT-proBNP (test code 3880 pg/mL See_Comment H [Autom ated = 7191442672) message] The system which generated this result transmitted reference range : <=125. The reference range was not used to interpret this result as normal/abnormal . DIANE (test code = DIANE) Biotin has been reported to cause a negative bias, interpret results relative to patient's use of biotin. Lab Interpretation Abnormal (test code = 40845-4) [facility]2020-[facility] 13:25:27 Test Item Value Reference Range Interpretation Comments POCT GLU (test code = 1819859849) 140 mg/dL 70-110 H Lab Interpretation (test code = Abnormal 99302-5) [facility] CBC with [id number] 12:38:02 Test Item Value Reference Range Interpretation Comments WBC (test code = See_Comment [Automated 6690-2) message] The sy stem which generated this result transmitted reference range : 4.20 - 10.70 10*3/?L. The reference range was not used to interpret this result as normal/abnormal . RBC (test code = See_Comment L [Automated 749-8) message] The sy stem which generated this result transmitted reference range : 4.26 - 5.52 10*6/?L. The reference range was not used to interpret this result as normal/abnormal . HGB (test code = 9.6 g/dL 12.2-16.4 L 718-7) HCT (test code = 30.7 % 38.4-49.3 L 4544-3) MCV (test code = 88.2 fL 81.7-95.6 787-2) MCH (test code = 27.6 pg 26.1-32.7 785-6) MCHC (test code = 31.3 g/dL 31.2-35.0 786-4) RDW-SD (test code = 49.2 fL 38.5-51.6 53289-9) RDW-CV (test code = 16.9 % 12.1-15.4 H 788-0) PLT (test code = See_Comment H [Automated 777-3) message] The sy stem which generated this result transmitted reference range : 150 - 328 10*3/ ?L. The reference r batsheva was not used to interpret this result as normal/abnormal . MPV (test code = 9.8 fL 9.8-13.0 62468-4) NRBC/100 WBC (test See_Comment [Automat ed code = 7134830442) message] The system which generated this result transmitted reference range : 0.0 - 10.0 /100 WBCs. The refer ence range was not u sed to interpret th is result as normal/abnormal . NRBC x10^3 (test code <0.01 See_Comment [Auto mated = 2048492691) message] The s ystem which generated this result transmitted reference range : 10*3/?L. The reference range was not used to interpret this result as normal/abnormal . GRAN MAT (NEUT) % 63.7 % (test code = 770-8) IMM GRAN % (test code 0.50 % = 2669297706) LYMPH % (test code = 20.3 % 736-9) MONO % (test code = 7.3 % 5905-5) EOS % (test code = 7.8 % 713-8) BASO % (test code = 0.4 % 706-2) GRAN MAT x10^3(ANC) 4.70 10*3/uL 1.99-6.95 (test code = 6638536628) IMM GRAN x10^3 (test 0.04 10*3/uL 0.00-0.06 code = 6806021285) LYMPH x10^3 (test code 1.50 10*3/uL 1.09-3.23 = 731-0) MONO x10^3 (test code 0.54 10*3/uL 0.36-1.02 = 742-7) EOS x10^3 (test code = 0.58 10*3/uL 0.06-0.53 H 711-2) BASO x10^3 (test code 0.03 10*3/uL 0.01-0.09 = 704-7) Lab Interpretation Abnormal (test code = 34423-9) [facility]TR[facility] [id number] 05:36:52 Test Item Value Reference Range Interpretation Comments TROPONIN I (test 0.026 ng/mL See_Comment [Automated code = 6858727981) message] The system which generated this result transmitted reference range : <=0.034. The reference range was not used to interpret this result as normal/abnormal . DIANE (test code = Equal or Less than DIANE) 0.034 ng/ml---Normal ?Note: Cardiac troponin begins to rise 3-4 hours after the onset of ischemia. Repeat in 4-6 hours if the sample was drawn within 3-4 hours of the onset of the symptom and found normal. Between 0.035 and 0.120 ng/mL--- Borderline. Questionable myocardial injury or necrosis ? ?Note: Serial measurement may be necessary to confirm or exclude the diagnosis of myocardial injury or necrosis; Clinical correlation (symptoms, EKGs, imaging studies, and others) required; Repeat in 4-6 hours if clinically indicated. ? Equal or Higher than 0.121 ng/mL---Abnormal. Myocardial Injury or Necrosis Likely ? Biotin has been reported to cause a negative bias, interpret results relative to patient's use of biotin. ? Lab Interpretation Normal (test code = 46247-2) [facility]2020-07-28 02:17:16 Test Item Value Reference Range Interpretation Comments POCT GLU (test code = 7957778445) 157 mg/dL 70-110 H Lab Interpretation (test code = Abnormal 46790-1) [facility]eraPTT20[facility] 00:22:07 Test Item Value Reference Range Interpretation Comments APTT Patient (test See_Comment H [Automat ed code = 3173-2) message] The system which generated this result transmitted reference range : 23 - 38 Seconds . The reference range was not used to interpr et this result as normal/abnormal . DIANE (test code = DIANE) The [facility] patient population mean normal value for aPTT is 30 seconds. Lab Interpretation Abnormal (test code = 83651-5) [facility] CenterACTIVATED PARTIAL THRMPLAS [id number] 00:19:44 Test Item Value Reference Range Interpretation Comments APTT Patient (test code = See_Comment [ Automated message] 3173-2) The system ic h generated this result transmitted ref erence range: 23 - 38 Seconds. The re ference range was not u sed to interpret this result as normal/abnor mal. Lab Interpretation (test Normal code = 26469-8) [facility] CenterPROTHROMBIN TIME / [id number] 00:17:22 Test Item Value Reference Range Interpretation Comments PROTIME PATIENT (test See_Comment [Auto mated message] code = 5964-2) The system ich generated this result transmitted ref erence range: 12.0 - 1 4.7 Seconds. The re ference range was not u sed to interpret this result as normal/abnor mal. INR (test code = 6301-6) Nor mal INR <1.1; Warfarin Therap eutic range 2.0 to 3. 0 or 2.5 to 3.5, dep ending upon the indica tions. Lab Interpretation (test Normal code = 39484-1) [facility] GLUCOSE (AUTOMATED)2020-07-27 22:57:49 Test Item Value Reference Range Interpretation Comments POCT GLU (test code = 6013945035) 165 mg/dL 70-110 H Lab Interpretation (test code = Abnormal 24891-3) [facility] GLUCOSE (AUTOMATED)2020-07-27 21:00:40 Test Item Value Reference Range Interpretation Comments POCT GLU (test code = 7152680840) 162 mg/dL 70-110 H Lab Interpretation (test code = Abnormal 84622-4) [facility] CenterTROPONIN [id number] 18:56:42 Test Item Value Reference Range Interpretation Comments TROPONIN I (test 0.024 ng/mL See_Comment [Automated code = 6141575376) message] The system which generated this result transmitted reference range : <=0.034. The reference range was not used to interpret this result as normal/abnormal . DIANE (test code = Equal or Less than DIANE) 0.034 ng/ml---Normal ?Note: Cardiac troponin begins to rise 3-4 hours after the onset of ischemia. Repeat in 4-6 hours if the sample was drawn within 3-4 hours of the onset of the symptom and found normal. Between 0.035 and 0.120 ng/mL--- Borderline. Questionable myocardial injury or necrosis ? ?Note: Serial measurement may be necessary to confirm or exclude the diagnosis of myocardial injury or necrosis; Clinical correlation (symptoms, EKGs, imaging studies, and others) required; Repeat in 4-6 hours if clinically indicated. ? Equal or Higher than 0.121 ng/mL---Abnormal. Myocardial Injury or Necrosis Likely ? Biotin has been reported to cause a negative bias, interpret results relative to patient's use of biotin. ? Lab Interpretation Normal (test code = 81724-7) [facility] CenterCOVID-19 (ID NOW RAPID TESTING)2020-07-27 18:55:46 Test Item Value Reference Range Interpretation Comments SARS-CoV-2 Rapid ID NOW Not Detected Not Detected (test code = 95766-7) DIANE (test code = DIANE) ID NOW COVID-19 Assay is an isothermal nucleic acid amplification test intended for the qualitative detection of nucleic acid from SARS-CoV-2 viral RNA in nasopharyngeal (STRAIGHTENING MACHINE OPERATOR) specimens. It is used under Emergency Use Authorization (EUA) by FDA. The limit of detection (LOD) of the assay is 125 Genome Equivalents/mL. A positive result is indicative of the presence of SARS-CoV-2 RNA. ?Clinical correlation with patient history and other diagnostic [...] for repeat patient testing if clinically indicated. Lab Interpretation Normal (test code = 06531-3) [facility] CenterPROTHROMBIN TIME / [id number] 18:55:26 Test Item Value Reference Range Interpretation Comments PROTIME PATIENT (test See_Comment H [Auto mated message] code = 5964-2) The system wh ich generated this result transmitted ref erence range: 12.0 - 1 4.7 Seconds. The reference range was not used to int erpret this result as normal/abnormal . INR (test code = 6301-6) Nor mal INR <1.1; Warfarin Therap eutic range 2.0 to 3. 0 or 2.5 to 3.5, dep ending upon the indica tions. Lab Interpretation (test Abnormal code = 54408-3) [facility] CenterXR CHEST 1 [id number] 18:55:21Impression: Mild pulmonary congestion.Exam: XR CHEST 1 07/27/2020 12:40 PM Clinical History: Chest pain Comparison: Radiograph of 03/16/2020 Technique: frontal view of the chest Findings:Left chest wall cardiac pacer is unchanged with the leads at the rightatrium and the right ventricle.Low lung volume. Mild central vascular congestion. Blunting of leftcostophrenic angle likely related to superimposed soft tissue. No rightpleural effusion. ?No pneumothorax. The cardiac size is normal. No acute osseous abnormality. [facility], Radiant Results Inft User - 07/27/2020 12:56 PM CSTExam: XR CHEST 1 07/27/2020 12:40 PMClinical History: Chest pain Comparison: Radiograph of 03/16/2020Technique: frontal view of the chestFindings:Left chest wall cardiac pacer is unchanged with the leads at the rightatrium andthe right ventricle.Low lung volume. Mild central vascular congestion. Blunting of leftcostophrenic angle likely related to superimposed soft tissue. No rightpleural effusion. No pneumothorax. The cardiac size is normal. No acute osseous abnormality. IMPRESSIONImpression: Mild pulmonary congestion.[facility] CenterN-[facility]MINAL [id number] 18:53:43 Test Item Value Reference Range Interpretation Comments NT-proBNP (test code 4050 pg/mL See_Comment H [Autom ated = 7920602609) message] The system which generated this result transmitted reference range : <=125. The reference range was not used to interpret this result as normal/abnormal . DIANE (test code = DIANE) Biotin has been reported to cause a negative bias, interpret results relative to patient's use of biotin. Lab Interpretation Abnormal (test code = 58171-1) [facility] CenterMAGNESIUM2021-03-08 18:46:39 Test Item Value Reference Range Interpretation Comments MAGNESIUM (test code = 9747280863) 1.9 mg/dL 1.7-2.4 Lab Interpretation (test code = Normal 89985-7) [facility] CenterCOMP. METABOLIC PANEL (70756)2020-07-27 18:46:23 Test Item Value Reference Range Interpretation Comments NA (test code = 144 mmol/L 135-145 9375429343) K (test code = 3.6 mmol/L 3.5-5.0 5933573348) CL (test code = 110 mmol/L 98-108 H 3316726992) CO2 TOTAL (test code = 25 mmol/L 23-31 9491288013) AGAP (test code = 2-16 2646255778) BUN (test code = 11 mg/dL 7-23 9978496395) GLUCOSE (test code = 190 mg/dL 70-110 H 1569640296) CREATININE (test code = 0.93 mg/dL 0.60-1.25 4893689162) TOTAL BILI (test code = 0.5 mg/dL 0.1-1.7 7297882782) CALCIUM (test code = 8.7 mg/dL 8.6-10.6 4075078273) T PROTEIN (test code = 7.1 g/dL 6.3-8.2 5371097205) ALBUMIN (test code = 3.9 g/dL 3.5-5.0 6519092719) ALK PHOS (test code = 150 U/L 34-122 H 9987279838) ALTv (test code = 14 U/L 5-50 1742-6) AST(SGOT) (test code = 25 U/L 13-40 5425602176) eGFR Calculation mL/min/1.73m2 (Non-) (test code = 6905336654) eGFR Calculation mL/min/1.73m2 () (test code = 9758193092) DIANE (test code = DIANE) Association of Glomerular Filtration Rate (GFR) and Staging of Kidney Disease* + --+ --+ ------+| GFR (mL/min/1.73 m2) ?| With Kidney Damage ?| ?Without Kidney Damage+ --------+ --------+ +| ?>90 ?| ?Stage one ?| ? Normal ?+ ---+ ---+ -------+| ?60-89 ?| ?Stage two ?| ? Decreased GFR ? + --+ --+ ------+| ?30-59 ?| ?Stage three ?| ? Stage three ? + --+ --+ ------+| ?15-29 ?| ?Stage four ? | ? Stage four ?+ ---+ ---+ -------+| ?<15 (or dialysis) ? ?| ?Stage five ? | ? Stage five ?+ ---+ ---+ -------+ *Each stage assumes the associated GFR level has been in effect for at least three months. ?Stages 1 to 5, with or without kidney disease, indicate chronic kidney disease. Notes: Determination of stages one and two (with eGFR >59mL/min/1.73 m2) requires estimation of kidney damage for at least three months as defined by structural or functional abnormalities of the kidney, manifested by either:Pathological abnormalities or Markers of kidney damage (including abnormalities in the composition of the blood or urine or abnormalities in imaging tests). Lab Interpretation Abnormal (test code = 76796-4) [facility] CenterLIPASE2021-03-08 18:46:03 Test Item Value Reference Range Interpretation Comments LIPASE (test code = 3223136614) 119 U/L 0-220 Lab Interpretation (test code = Normal 92011-2) [facility] CenterCB WITH [id number] 18:34:41 Test Item Value Reference Range Interpretation Comments WBC (test code = See_Comment [Automated 7590-2) message] The sy stem which generated this result transmitted reference range : 4.20 - 10.70 10*3/?L. The reference range was not used to interpret this result as normal/abnormal . RBC (test code = See_Comment L [Automated 499-8) message] The sy stem which generated this result transmitted reference range : 4.26 - 5.52 10*6/?L. The reference range was not used to interpret this result as normal/abnormal . HGB (test code = 8.8 g/dL 12.2-16.4 L 718-7) HCT (test code = 27.6 % 38.4-49.3 L 4544-3) MCV (test code = 86.5 fL 81.7-95.6 787-2) MCH (test code = 27.6 pg 26.1-32.7 785-6) MCHC (test code = 31.9 g/dL 31.2-35.0 786-4) RDW-SD (test code = 45.3 fL 38.5-51.6 44348-0) RDW-CV (test code = 16.1 % 12.1-15.4 H 788-0) PLT (test code = See_Comment H [Automated 777-3) message] The sy stem which generated this result transmitted reference range : 150 - 328 10*3/ ?L. The reference r batsheva was not used to interpret this result as normal/abnormal . MPV (test code = 9.0 fL 9.8-13.0 L 83330-0) NRBC/100 WBC (test See_Comment [Automat ed code = 4912039176) message] The system which generated this result transmitted reference range : 0.0 - 10.0 /100 WBCs. The refer ence range was not u sed to interpret th is result as normal/abnormal . NRBC x10^3 (test code <0.01 See_Comment [Auto mated = 7713535485) message] The s ystem which generated this result transmitted reference range : 10*3/?L. The reference range was not used to interpret this result as normal/abnormal . GRAN MAT (NEUT) % 74.4 % (test code = 770-8) IMM GRAN % (test code 0.60 % = 0591597773) LYMPH % (test code = 12.5 % 736-9) MONO % (test code = 7.0 % 5905-5) EOS % (test code = 5.0 % 713-8) BASO % (test code = 0.5 % 706-2) GRAN MAT x10^3(ANC) 7.09 10*3/uL 1.99-6.95 H (test code = 4406114620) IMM GRAN x10^3 (test 0.06 10*3/uL 0.00-0.06 code = 0802039652) LYMPH x10^3 (test code 1.19 10*3/uL 1.09-3.23 = 731-0) MONO x10^3 (test code 0.67 10*3/uL 0.36-1.02 = 742-7) EOS x10^3 (test code = 0.48 10*3/uL 0.06-0.53 711-2) BASO x10^3 (test code 0.05 10*3/uL 0.01-0.09 = 704-7) Lab Interpretation Abnormal (test code = 46872-0) [facility] GLUCOSE (AUTOMATED)2020-07-27 18:34:20 Test Item Value Reference Range Interpretation Comments POCT GLU (test code = 8400475726) 208 mg/dL 70-110 H Lab Interpretation (test code = Abnormal 24588-5) [facility] GLUCOSE (AUTOMATED)2020-07-20 23:35:00 Test Item Value Reference Range Interpretation Comments POCT GLU (test code = 1322749989) 208 mg/dL 70-110 H Lab Interpretation (test code = Abnormal 53178-1) [facility] CenterIRON [id number] 21:28:00 Test Item Value Reference Range Interpretation Comments IRON (test code = <10 50-160 L 4687444706) TIBC (test code = 360 ug/dL 250-410 2020857851) % FE SAT (test code = Unable to calculate 4263221142) because, either iron serum, total ir on binding capacit y, or both are less t lam the sensitivity of the analyzer. Lab Interpretation (test Abnormal code = 66590-3) [facility] CenterFIBRINOGEN2021-03-01 20:47:00 Test Item Value Reference Range Interpretation Comments Fibrinogen (test code = 9185972964) 614 mg/dL 167-453 H Lab Interpretation (test code = Abnormal 59258-5) [facility] CenterCBC WITHOUT [id number] 20:42:00 Test Item Value Reference Range Interpretation Comments WBC (test code = 6690-2) See_Comment [A utomated message] The system [employer] generated this result transmit ludmila reference range : 4.20 - 10.70 10*3/?L. The reference range was not used to interpret this result as normal/abnormal . RBC (test code = 789-8) See_Comment L [Au tomated message] The system [employer] generated this result transmit ludmila reference range : 4.26 - 5.52 10* 6/?L. The reference r batsheva was not used to interpret this result as normal/abnormal . HGB (test code = 718-7) 7.8 g/dL 12.2-16.4 L HCT (test code = 4544-3) 24.9 % 38.4-49.3 L MCH (test code = 785-6) 26.4 pg 26.1-32.7 MCV (test code = 787-2) 84.1 fL 81.7-95.6 MCHC (test code = 786-4) 31.3 g/dL 31.2-35 PLT (test code = 777-3) See_Comment H [Au tomated message] The system [facility] generated this result transmit ludmila reference range : 150 - 328 10*3/?L. The reference range was not used to interpret this result as normal/abnormal . MPV (test code = 9.9 fL 9.8-13 63468-7) RDW-CV (test code = 13.6 % 12.1-15.4 788-0) RDW-SD (test code = 41.9 fL 38.5-51.6 44715-6) NRBC x10^3 (test code = <0.01 See_Comment [Au tomated message] 8242682365) The system [employer] generated this result transmit ludmila reference range : 10*3/?L. The reference range was not used to interpret this result as normal/abnormal . NRBC/100 WBC (test code See_Comment [Au tomated message] = 1756005660) The system [facility] generated this result transmit ludmila reference range : 0.0 - 10.0 /100 WBC s. The reference r batsheva was not used to interpret this result as normal/abnormal . IPF % (test code = 3951227991) Lab Interpretation (test Abnormal code = 69900-0) [facility] GLUCOSE (AUTOMATED)2020-07-20 19:39:00 Test Item Value Reference Range Interpretation Comments POCT GLU (test code = 3796701354) 214 mg/dL 70-110 H Lab Interpretation (test code = Abnormal 46433-5) [facility] CenterFERRITIN [id number] 18:51:00 Test Item Value Reference Range Interpretation Comments FERRITIN (test code = 16.5 ng/mL 18-464 L 9891914492) DIANE (test code = DIANE) Biotin has been reported to cause a negative bias, interpret results relative to patient's use of biotin. Lab Interpretation (test Abnormal code = 22830-9) [facility] CenterType and Screen - ONCE [id number] 17:59:01 Test Item Value Reference Range Interpretation Comments ABO & RH (test code O POSITIVE Performe d at [facility] = 20) Laboratory Serv [facility] [address]Sglh Free: [phone] A No. [id number] IAT (test code = Negative Performed a t [facility] 1185) Laboratory Serv [facility] [address]Mgta Free: [phone] A No. [id number] [facility] CenterBASI METABOLIC PANEL (NA, K, CL, CO2, GLUCOSE, BUN, CREATININE, CA)2020-07-20 10:54:00 Test Item Value Reference Range Interpretation Comments NA (test code = 137 mmol/L 135-145 3436431859) K (test code = 3.9 mmol/L 3.5-5 5521619265) CL (test code = 107 mmol/L 98-108 6134450242) CO2 TOTAL (test code = 25 mmol/L 23-31 4931178259) AGAP (test code = 2-16 3262172830) BUN (test code = 10 mg/dL 7-23 6734159808) GLUCOSE (test code = 165 mg/dL 70-110 H 2975833919) CREATININE (test code = 0.92 mg/dL 0.6-1.25 7539739463) CALCIUM (test code = 8.2 mg/dL 8.6-10.6 L 8607717780) eGFR Calculation mL/min/1.73m2 (Non-) (test code = 1178629871) eGFR Calculation mL/min/1.73m2 () (test code = 5921537762) DIANE (test code = DIANE) Association of Glomerular Filtration Rate (GFR) and Staging of Kidney Disease* + --+ --+ ------+| GFR (mL/min/1.73 m2) ?| With Kidney Damage ?| ?Without Kidney Damage+ --------+ --------+ +| ?>90 ?| ?Stage one ?| ? Normal ?+ ---+ ---+ -------+| ?60-89 ?| ?Stage two ?| ? Decreased GFR ? + --+ --+ ------+| ?30-59 ?| ?Stage three ?| ? Stage three ? + --+ --+ ------+| ?15-29 ?| ?Stage four ? | ? Stage four ?+ ---+ ---+ -------+| ?<15 (or dialysis) ? ?| ?Stage five ? | ? Stage five ?+ ---+ ---+ -------+ *Each stage assumes the associated GFR level has been in effect for at least three months. ?Stages 1 to 5, with or without kidney disease, indicate chronic kidney disease. Notes: Determination of stages one and two (with eGFR >59mL/min/1.73 m2) requires estimation of kidney damage for at least three months as defined by structural or functional abnormalities of the kidney, manifested by either:Pathological abnormalities or Markers of kidney damage (including abnormalities in the composition of the blood or urine or abnormalities in imaging tests). Lab Interpretation Abnormal (test code = 73456-7) [facility] WITH [id number] 10:23:00 Test Item Value Reference Range Interpretation Comments WBC (test code = See_Comment [Automated 8891-2) message] The sy stem which generated this result transmitted reference range : 4.20 - 10.70 10*3/?L. The reference range was not used to interpret this result as normal/abnormal . RBC (test code = See_Comment L [Automated 239-8) message] The sy stem which generated this result transmitted reference range : 4.26 - 5.52 10*6/?L. The reference range was not used to interpret this result as normal/abnormal . HGB (test code = 7.6 g/dL 12.2-16.4 L 718-7) HCT (test code = 24.0 % 38.4-49.3 L 4544-3) MCV (test code = 85.1 fL 81.7-95.6 787-2) MCH (test code = 27.0 pg 26.1-32.7 785-6) MCHC (test code = 31.7 g/dL 31.2-35 786-4) RDW-SD (test code = 42.2 fL 38.5-51.6 16791-6) RDW-CV (test code = 13.5 % 12.1-15.4 788-0) PLT (test code = See_Comment [Automated 777-3) message] The sy stem which generated this result transmitted reference range : 150 - 328 10*3/ ?L. The reference r batsheva was not used to interpret this result as normal/abnormal . MPV (test code = 9.9 fL 9.8-13 91514-6) NRBC/100 WBC (test See_Comment [Automat ed code = 5684014232) message] The system which generated this result transmitted reference range : 0.0 - 10.0 /100 WBCs. The refer ence range was not u sed to interpret th is result as normal/abnormal . NRBC x10^3 (test code <0.01 See_Comment [Auto mated = 1708289083) message] The s ystem which generated this result transmitted reference range : 10*3/?L. The reference range was not used to interpret this result as normal/abnormal . GRAN MAT (NEUT) % 64.6 % (test code = 770-8) IMM GRAN % (test code 0.40 % = 9194229585) LYMPH % (test code = 18.3 % 736-9) MONO % (test code = 10.3 % 5905-5) EOS % (test code = 6.0 % 713-8) BASO % (test code = 0.4 % 706-2) GRAN MAT x10^3(ANC) 4.63 10*3/uL 1.99-6.95 (test code = 3061011513) IMM GRAN x10^3 (test 0.03 10*3/uL 0-0.06 code = 3074944497) LYMPH x10^3 (test code 1.31 10*3/uL 1.09-3.23 = 731-0) MONO x10^3 (test code 0.74 10*3/uL 0.36-1.02 = 742-7) EOS x10^3 (test code = 0.43 10*3/uL 0.06-0.53 711-2) BASO x10^3 (test code 0.03 10*3/uL 0.01-0.09 = 704-7) Lab Interpretation Abnormal (test code = 49365-4) [facility]PO[facility]2020-07-19 23:59:00 Test Item Value Reference Range Interpretation Comments POCT GLU (test code = 7545900010) 135 mg/dL 70-110 H Lab Interpretation (test code = Abnormal 49278-7) [facility] CenterMAGNESIUM2021-02-28 21:20:00 Test Item Value Reference Range Interpretation Comments MAGNESIUM (test code = 2.1 mg/dL 1.7-2.4 Sligh t hemolysis 7102023152) Lab Interpretation (test Normal code = 88805-2) [facility] [id number] 21:00:00 Test Item Value Reference Range Interpretation Comments WBC (test code = 6690-2) See_Comment [A utomated message] The system [employer] generated this result transmit ludmila reference range : 4.20 - 10.70 10*3/?L. The reference range was not used to interpret this result as normal/abnormal . RBC (test code = 789-8) See_Comment L [Au tomated message] The system [employer] generated this result transmit ludmila reference range : 4.26 - 5.52 10* 6/?L. The reference r batsheva was not used to interpret this result as normal/abnormal . HGB (test code = 718-7) 7.6 g/dL 12.2-16.4 L HCT (test code = 4544-3) 24.0 % 38.4-49.3 L MCH (test code = 785-6) 26.8 pg 26.1-32.7 MCV (test code = 787-2) 84.5 fL 81.7-95.6 MCHC (test code = 786-4) 31.7 g/dL 31.2-35 PLT (test code = 777-3) See_Comment [Au tomated message] The system [employer] generated this result transmit ludmila reference range : 150 - 328 10*3/?L. The reference range was not used to interpret this result as normal/abnormal . MPV (test code = 10.1 fL 9.8-13 38227-2) RDW-CV (test code = 13.7 % 12.1-15.4 788-0) RDW-SD (test code = 42.2 fL 38.5-51.6 29116-7) NRBC x10^3 (test code = <0.01 See_Comment [Au tomated message] [id number]) The system [employer] generated this result transmit ludmila reference range : 10*3/?L. The reference range was not used to interpret this result as normal/abnormal . NRBC/100 WBC (test code See_Comment [Au tomated message] = 2408928213) The system [employer] generated this result transmit ludmila reference range : 0.0 - 10.0 /100 WBC s. The reference r batsheva was not used to interpret this result as normal/abnormal . IPF % (test code = 1568853674) Lab Interpretation (test Abnormal code = 98324-9) [facility]SE [facility]2020-07-19 20:12:00 Test Item Value Reference Range Interpretation Comments POCT GLU (test code = 1885164735) 156 mg/dL 70-110 H Lab Interpretation (test code = Abnormal 71295-3) [facility]SE (AUTOMATED)2020-07-19 15:56:00 Test Item Value Reference Range Interpretation Comments POCT GLU (test code = 6368116815) 162 mg/dL 70-110 H Lab Interpretation (test code = Abnormal 15602-5) [facility] FOOT RIGHT W [id number] 14:31:[address] findings of osteomyelitis. Cellulitis. No abscess or effusion. Comment: CT scan is not the study of choice for evaluation ofosteomyelitis, recommend MRI if clinical concern persists as this is therecommended imaging modality. EXAM: CT FOOT RIGHT W CONTRAST HISTORY: concern for osteomylitis COMPARISON: Right foot radiographs dated 07/10/2020 FINDINGS: Multiplanar CT imaging of the right foot was performed with utilization ofIV contrast. Diffuse subcutaneous fat stranding is present with soft tissue fullnessseen at the medial first MTP joint and posterior heel pad. Diabetic typevascular calcifications are present.Calcaneal enthesophyte formation isseen. No osteolysis, periosteal reaction or acute cortical medullary defect isseen. No rim-enhancing fluid collections or joint effusions are seen.Minimal hypoattenuating fluid along the course of the common peronealtendon sheath just distal to lateral malleolus. [facility], Radiant Results Inft User - 07/19/2020 8:32 AM CSTEXAM:CT FOOT RIGHT W CONTRASTHISTORY:concern for osteomylitis COMPARISON:Right foot radiographs dated 07/10/2020FINDINGS: Multiplanar CT imaging of the right foot was performed with utilization ofIV contrast.Diffuse subcutaneousfat stranding is present with soft tissue fullnessseen at the medial first MTP joint and posterior heel pad. Diabetic typevascular calcifications are present.Calcaneal enthesophyte formation isseen. Noosteolysis, periosteal reaction or acute cortical medullary defect isseen. No rim-enhancing fluid collections or joint effusions are seen.Minimal hypoattenuating fluid along the course of the common peronealtendon sheath just distal to lateral malleolus. IMPRESSIONNo CT findings of osteomyelitis.Cellul itis.No abscess or effusion.Comment: CT scan is not the study of choice for evaluation ofosteomyelitis, recommend MRI if clinical concern persists as this is therecommended imaging modality.[facility] (NA, K, CL, CO2, GLUCOSE, BUN, CREATININE, CA)2020-07-19 10:07:00 Test Item Value Reference Range Interpretation Comments NA (test code = 137 mmol/L 135-145 1884024062) K (test code = 4.1 mmol/L 3.5-5 Slight 7349294267) hemolysis CL (test code = 108 mmol/L 98-108 1809623149) CO2 TOTAL (test code 24 mmol/L 23-31 = 8818382902) AGAP (test code = 2-16 4228934304) BUN (test code = 10 mg/dL 7-23 Slight 4299630974) hemolysis GLUCOSE (test code = 134 mg/dL 70-110 H 9062941712) CREATININE (test code 0.80 mg/dL 0.6-1.25 = 7974983289) CALCIUM (test code = 8.2 mg/dL 8.6-10.6 L 7258159358) eGFR Calculation mL/min/1.73m2 (Non-) (test code = 7891996412) eGFR Calculation mL/min/1.73m2 () (test code = 4631810640) DIANE (test code = DIANE) Association of Glomerular Filtration Rate (GFR) and Staging of Kidney Disease* + -----+ --------+ +| GFR (mL/min/1.73 m2) ?| With Kidney Damage ?| ?Without Kidney Damage+ +------- +---- --+| ?>90 ?| ?Stage one ?| ? Normal ?+ ------+ ---------+--------- +| ?60-89 ?| ?Stage two ?| ? Decreased GFR ? + -----+ --------+ +| ?30-59 ?| ?Stage three ?| ? Stage three ? + -----+ --------+ +| ?15-29 ?| ?Stage four ? | ? Stage four ?+ ------+ ---------+--------- +| ?<15 (or dialysis) ? ?| ?Stage five ? | ? Stage five ?+ ------+ ---------+--------- + *Each stage assumes the associated GFR level has been in effect for at least three months. ?Stages 1 to 5, with or without kidney disease, indicate chronic kidney disease. Notes: Determination of stages one and two (with eGFR >59mL/min/1.73 m2) requires estimation of kidney damage for at least three months as defined by structural or functional abnormalities of the kidney, manifested by either:Pathological abnormalities or Markers of kidney damage (including abnormalities in the composition of the blood or urine or abnormalities in imaging tests). Lab Interpretation Abnormal (test code = 33725-9) [facility] GLUCOSE (AUTOMATED)2020-07-18 17:51:00 Test Item Value Reference Range Interpretation Comments POCT GLU (test code = 0993855865) 130 mg/dL 70-110 H Lab Interpretation (test code = Abnormal 76648-0) [facility] WITH [id number] 17:47:00 Test Item Value Reference Range Interpretation Comments WBC (test code = See_Comment [Automated 6690-2) message] The sy stem which generated this result transmitted reference range : 4.20 - 10.70 10*3/?L. The reference range was not used to interpret this result as normal/abnormal . RBC (test code = See_Comment L [Automated 789-8) message] The sy stem which generated this result transmitted reference range : 4.26 - 5.52 10*6/?L. The reference range was not used to interpret this result as normal/abnormal . HGB (test code = 7.3 g/dL 12.2-16.4 L 718-7) HCT (test code = 22.5 % 38.4-49.3 L 4544-3) MCV (test code = 83.0 fL 81.7-95.6 787-2) MCH (test code = 26.9 pg 26.1-32.7 785-6) MCHC (test code = 32.4 g/dL 31.2-35 786-4) RDW-SD (test code = 39.6 fL 38.5-51.6 06729-8) RDW-CV (test code = 13.2 % 12.1-15.4 788-0) PLT (test code = See_Comment [Automated 777-3) message] The sy stem which generated this result transmitted reference range : 150 - 328 10*3/ ?L. The reference r batsheva was not used to interpret this result as normal/abnormal . MPV (test code = 9.5 fL 9.8-13 L 85704-9) NRBC/100 WBC (test See_Comment [Automat ed code = 3672890714) message] The system which generated this result transmitted reference range : 0.0 - 10.0 /100 WBCs. The refer ence range was not u sed to interpret th is result as normal/abnormal . NRBC x10^3 (test code <0.01 See_Comment [Auto mated = 2154370766) message] The s ystem which generated this result transmitted reference range : 10*3/?L. The reference range was not used to interpret this result as normal/abnormal . GRAN MAT (NEUT) % 70.3 % (test code = 770-8) IMM GRAN % (test code 0.30 % = 9980455604) LYMPH % (test code = 16.0 % 736-9) MONO % (test code = 10.1 % 5905-5) EOS % (test code = 3.0 % 713-8) BASO % (test code = 0.3 % 706-2) GRAN MAT x10^3(ANC) 5.37 10*3/uL 1.99-6.95 (test code = 1511519673) IMM GRAN x10^3 (test <0.03 0-0.06 code = 1217755348) LYMPH x10^3 (test code 1.22 10*3/uL 1.09-3.23 = 731-0) MONO x10^3 (test code 0.77 10*3/uL 0.36-1.02 = 742-7) EOS x10^3 (test code = 0.23 10*3/uL 0.06-0.53 711-2) BASO x10^3 (test code <0.03 0.01-0.09 = 704-7) Lab Interpretation Abnormal (test code = 92774-2) [facility]SE (AUTOMATED[facility]2020-07-18 15:51:00 Test Item Value Reference Range Interpretation Comments POCT GLU (test code = 3607630788) 123 mg/dL 70-110 H Lab Interpretation (test code = Abnormal 50674-8) [facility] GLUCOSE (AUTOMATED)2020-07-18 00:19:00 Test Item Value Reference Range Interpretation Comments POCT GLU (test code = 0210170071) 138 mg/dL 70-110 H Lab Interpretation (test code = Abnormal 17666-3) [facility]2020-07-17 23:42:17 These images do not require a Radiology diagnostic report.[facility] GLUCOSE (AUTOMATED)2020-07-17 16:30:00 Test Item Value Reference Range Interpretation Comments POCT GLU (test code = 2367366797) 140 mg/dL 70-110 H Lab Interpretation (test code = Abnormal 45535-1) [facility] METABOLIC PANEL (NA, K, CL, CO2, GLUCOSE, BUN, CREATININE, CA)2020-07-17 11:53:00 Test Item Value Reference Range Interpretation Comments NA (test code = 135 mmol/L 135-145 6036678069) K (test code = 4.0 mmol/L 3.5-5 3324357707) CL (test code = 107 mmol/L 98-108 9116255707) CO2 TOTAL (test code = 18 mmol/L 23-31 L 1873317686) AGAP (test code = 2-16 9909334018) BUN (test code = 12 mg/dL 7-23 9425369606) GLUCOSE (test code = 144 mg/dL 70-110 H 8906970568) CREATININE (test code = 0.90 mg/dL 0.6-1.25 3337861787) CALCIUM (test code = 8.2 mg/dL 8.6-10.6 L 1434855298) eGFR Calculation mL/min/1.73m2 (Non-) (test code = 5687360158) eGFR Calculation mL/min/1.73m2 () (test code = 6034848064) DIANE (test code = DIANE) Association of Glomerular Filtration Rate (GFR) and Staging of Kidney Disease* + --+ --+ ------+| GFR (mL/min/1.73 m2) ?| With Kidney Damage ?| ?Without Kidney Damage+ --------+ --------+ +| ?>90 ?| ?Stage one ?| ? Normal ?+ ---+ ---+ -------+| ?60-89 ?| ?Stage two ?| ? Decreased GFR ? + --+ --+ ------+| ?30-59 ?| ?Stage three ?| ? Stage three ? + --+ --+ ------+| ?15-29 ?| ?Stage four ? | ? Stage four ?+ ---+ ---+ -------+| ?<15 (or dialysis) ? ?| ?Stage five ? | ? Stage five ?+ ---+ ---+ -------+ *Each stage assumes the associated GFR level has been in effect for at least three months. ?Stages 1 to 5, with or without kidney disease, indicate chronic kidney disease. Notes: Determination of stages one and two (with eGFR >59mL/min/1.73 m2) requires estimation of kidney damage for at least three months as defined by structural or functional abnormalities of the kidney, manifested by either:Pathological abnormalities or Markers of kidney damage (including abnormalities in the composition of the blood or urine or abnormalities in imaging tests). Lab Interpretation Abnormal (test code = 19811-6) [facility] WITH [id number] 11:06:00 Test Item Value Reference Range Interpretation Comments WBC (test code = See_Comment [Automated 6690-2) message] The sy stem which generated this result transmitted reference range : 4.20 - 10.70 10*3/?L. The reference range was not used to interpret this result as normal/abnormal . RBC (test code = See_Comment L [Automated 789-8) message] The sy stem which generated this result transmitted reference range : 4.26 - 5.52 10*6/?L. The reference range was not used to interpret this result as normal/abnormal . HGB (test code = 7.6 g/dL 12.2-16.4 L 718-7) HCT (test code = 23.9 % 38.4-49.3 L 4544-3) MCV (test code = 84.5 fL 81.7-95.6 787-2) MCH (test code = 26.9 pg 26.1-32.7 785-6) MCHC (test code = 31.8 g/dL 31.2-35 786-4) RDW-SD (test code = 41.4 fL 38.5-51.6 23460-1) RDW-CV (test code = 13.4 % 12.1-15.4 788-0) PLT (test code = See_Comment [Automated 777-3) message] The sy stem which generated this result transmitted reference range : 150 - 328 10*3/ ?L. The reference r batsheva was not used to interpret this result as normal/abnormal . MPV (test code = 9.7 fL 9.8-13 L 40588-8) NRBC/100 WBC (test See_Comment [Automat ed code = 6158296028) message] The system which generated this result transmitted reference range : 0.0 - 10.0 /100 WBCs. The refer ence range was not u sed to interpret th is result as normal/abnormal . NRBC x10^3 (test code <0.01 See_Comment [Auto mated = 6596832719) message] The s ystem which generated this result transmitted reference range : 10*3/?L. The reference range was not used to interpret this result as normal/abnormal . GRAN MAT (NEUT) % 57.5 % (test code = 770-8) IMM GRAN % (test code 0.40 % = 1967888329) LYMPH % (test code = 24.8 % 736-9) MONO % (test code = 11.1 % 5905-5) EOS % (test code = 5.6 % 713-8) BASO % (test code = 0.6 % 706-2) GRAN MAT x10^3(ANC) 3.86 10*3/uL 1.99-6.95 (test code = 2939679890) IMM GRAN x10^3 (test 0.03 10*3/uL 0-0.06 code = 1159757320) LYMPH x10^3 (test code 1.67 10*3/uL 1.09-3.23 = 731-0) MONO x10^3 (test code 0.75 10*3/uL 0.36-1.02 = 742-7) EOS x10^3 (test code = 0.38 10*3/uL 0.06-0.53 711-2) BASO x10^3 (test code 0.04 10*3/uL 0.01-0.09 = 704-7) Lab Interpretation Abnormal (test code = 37716-3) [facility]SE (AUTOM[facility]2020-07-17 00:46:00 Test Item Value Reference Range Interpretation Comments POCT GLU (test code = 8744527118) 130 mg/dL 70-110 H Lab Interpretation (test code = Abnormal 10137-8) [facility] GLUCOSE (AUTOMATED)2020-07-17 00:35:00 Test Item Value Reference Range Interpretation Comments POCT GLU (test code = 6174580251) 127 mg/dL 70-110 H Lab Interpretation (test code = Abnormal 16892-6) [facility] ONLY COVID [id number] 23:52:00COVID DMT InterpretationInterpretation/Recommendations: Molecular NAAT Tests for Active Infection with the SARS-CoV-2 Virus: The patient has currently tested negative for the SARS-CoV-2 virus that causes COVID-19 illness. This most likely indicates that the patient does not have an active infection with the SARS-CoV-2 virus. However, infection is not completely ruled out as the false negative rate for molecular NAAT testing using a nasopharyngeal sample can be up to 30%, mostly dependent on the timing of sample collection in relation to illness onset and any deficiencies in sampling techniques. If the patient has symptoms concerning for COVID-19 illness, a repeat NAAT test (PCR, Rapid ID Now, etc.) should be performed, at which time the SARS-CoV-2 virus - if present - may have reached a detectable viral load (usually peaking by the end of the first week of symptoms). Tests for IgM and/or IgGAntibodies to the SARS-CoV-2 Virus: If the patient develops COVID-19 illness in the future, testingfor IgM and IgG antibodies approximately 3 weeks after illness onset will likely indicate if the patient has produced antibodies to the SARS-CoV-2 virus. However, some patients may take longer to develop detectable antibodies, while some patients who were infected with SARS-CoV-2 may never develop antibodies. While antibodies to SARS-CoV-2 may provide some degree of immunity, at this time the strength and duration of the antibody response is unknown. Interpretation Result Comments:These interpretation comments are based uponall COVID-19 testing the patient has had at [facility], including molecular NAAT testing (more commonly known as PCR testing and Rapid ID Now testing) and antibody testing. It does not take into account any testing that a patient has had outside of the [facility] medical record. [facility] LABORATORY SERVICESCOVID Res [id number]-[id number] Rapid ID NOW (no units) ? ? Date ? Value ? 07/16/2020 ? Not Detected ? ? ? 07/10/2020 ? Not Detected ? ? ? 05/29/2020 ? Not Detected ? ? ? 03/16/2020 ? Not Detected ? ? ? 02/03/2020 ? Not Detected ? ? ? 11/16/2019 ? Not Detected ? ? ? 09/17/2019 ? Not Detected ? [facility] SERVICESUnCH[facility] Type and Screen - ONCE [id number] 22:45:46 Test Item Value Reference Range Interpretation Comments ABO & RH (test code O POSITIVE Performe d at [facility] = 20) Laboratory [facility] Blood [facility] [place] [address] s [id number] Free: [phone] A No. [id number] IAT (test code = Negative Performed a t [facility] 1185) Laboratory Serv [facility] Blood [facility] [place] [address] s [id number] Free: [phone] A No. [id number] [facility] (ID NOW RAPID TESTING)2020-07-16 21:53:00 Test Item Value Reference Range Interpretation Comments SARS-CoV-2 Rapid ID NOW Not Detected Not Detected (test code = 13263-9) DIANE (test code = DIANE) ID NOW COVID-19 Assay is an isothermal nucleic acid amplification test intended for the qualitative detection of nucleic acid from SARS-CoV-2 viral RNA in nasopharyngeal (STRAIGHTENING MACHINE OPERATOR) specimens. It is used under Emergency Use Authorization (EUA) by FDA. The limit of detection (LOD) of the assay is 125 Genome Equivalents/mL. A positive result is indicative of the presence of SARS-CoV-2 RNA. ?Clinical correlation with patient history and other diagnostic [...] for repeat patient testing if clinically indicated. Lab Interpretation Normal (test code = 47577-9) [facility] GLU[facility]SE (AUTOMATED)2020-07-16 21:13:00 Test Item Value Reference Range Interpretation Comments POCT GLU (test code = 1755328397) 146 mg/dL 70-110 H Lab Interpretation (test code = Abnormal 90459-1) [facility] GLU[facility]SE (AUTOMATED)2020-07-16 15:39:00 Test Item Value Reference Range Interpretation Comments POCT GLU (test code = 7508147342) 90 mg/dL 70-110 Lab Interpretation (test code = Normal 07309-4) [facility] CULTURE [id number] 14:01:00 Test Item Value Reference Range Interpretation Comments Blood Culture-Aerobic No organisms No growth Previo us (test code = 26533-4) isolated prelim inary verified result was Culture In Progress on 07/11/2020 at 11 01 CSTPrevious preliminary verified result was No growth a t 24 hours on 07/12/2020 at 08 01 CSTPrevious preliminary verified result was No growth a t 48 hours on 07/13/2020 at 08 01 CSTPrevious preliminary verified result was No growth a t 72 hours on 07/14/2020 at 08 01 DIRECTOR OF ORTHOPEDICS Blood No organisms No growth Previous Culture-Anaerobic isolated preliminar y (test code = 69864-8) verifi ed result was Culture In Progress on 07/11/2020 at 11 01 CSTPrevious preliminary verified result was No growth a t 24 hours on 07/12/2020 at 08 01 CSTPrevious preliminary verified result was No growth a t 48 hours on 07/13/2020 at 08 01 CSTPrevious preliminary verified result was No growth a t 72 hours on 07/14/2020 at 08 01 DIRECTOR OF ORTHOPEDICS Lab Interpretation Normal (test code = 87767-8) [facility] CULTURE [id number] 14:01:00 Test Item Value Reference Range Interpretation Comments Blood Culture-Aerobic No organisms No growth Previo us (test code = 12483-6) isolated prelim inary verified result was Culture In Progress on 07/11/2020 at 11 01 CSTPrevious preliminary verified result was No growth a t 24 hours on 07/12/2020 at 08 01 CSTPrevious preliminary verified result was No growth a t 48 hours on 07/13/2020 at 08 01 CSTPrevious preliminary verified result was No growth a t 72 hours on 07/14/2020 at 08 01 DIRECTOR OF ORTHOPEDICS Blood No organisms No growth Previous Culture-Anaerobic isolated preliminar y (test code = 85650-9) verifi ed result was Culture In Progress on 07/11/2020 at 11 01 CSTPrevious preliminary verified result was No growth a t 24 hours on 07/12/2020 at 08 01 CSTPrevious preliminary verified result was No growth a t 48 hours on 07/13/2020 at 08 01 CSTPrevious preliminary verified result was No growth a t 72 hours on 07/14/2020 at 08 01 DIRECTOR OF ORTHOPEDICS Lab Interpretation Normal (test code = 66688-5) [facility] (NA, K, CL, CO2, GLUCOSE, BUN, CREATININE, CA)2020-07-16 12:05:00 Test Item Value Reference Range Interpretation Comments NA (test code = 137 mmol/L 135-145 3295267335) K (test code = 3.7 mmol/L 3.5-5 7807710795) CL (test code = 107 mmol/L 98-108 2967644234) CO2 TOTAL (test code = 22 mmol/L 23-31 L 5922241806) AGAP (test code = 2-16 7125827862) BUN (test code = 13 mg/dL 7-23 2602580028) GLUCOSE (test code = 83 mg/dL 70-110 4441170756) CREATININE (test code = 1.00 mg/dL 0.6-1.25 0198641283) CALCIUM (test code = 8.1 mg/dL 8.6-10.6 L 7471882090) eGFR Calculation mL/min/1.73m2 (Non-) (test code = 2784160647) eGFR Calculation mL/min/1.73m2 () (test code = 3202545695) DIANE (test code = DIANE) Association of Glomerular Filtration Rate (GFR) and Staging of Kidney Disease* + --+ --+ ------+| GFR (mL/min/1.73 m2) ?| With Kidney Damage ?| ?Without Kidney Damage+ --------+ --------+ +| ?>90 ?| ?Stage one ?| ? Normal ?+ ---+ ---+ -------+| ?60-89 ?| ?Stage two ?| ? Decreased GFR ? + --+ --+ ------+| ?30-59 ?| ?Stage three ?| ? Stage three ? + --+ --+ ------+| ?15-29 ?| ?Stage four ? | ? Stage four ?+ ---+ ---+ -------+| ?<15 (or dialysis) ? ?| ?Stage five ? | ? Stage five ?+ ---+ ---+ -------+ *Each stage assumes the associated GFR level has been in effect for at least three months. ?Stages 1 to 5, with or without kidney disease, indicate chronic kidney disease. Notes: Determination of stages one and two (with eGFR >59mL/min/1.73 m2) requires estimation of kidney damage for at least three months as defined by structural or functional abnormalities of the kidney, manifested by either:Pathological abnormalities or Markers of kidney damage (including abnormalities in the composition of the blood or urine or abnormalities in imaging tests). Lab Interpretation Abnormal (test code = 59994-3) [facility] WITH [id number] 11:15:00 Test Item Value Reference Range Interpretation Comments WBC (test code = See_Comment [Automated 1920-2) message] The sy stem which generated this result transmitted reference range : 4.20 - 10.70 10*3/?L. The reference range was not used to interpret this result as normal/abnormal . RBC (test code = See_Comment L [Automated 619-8) message] The sy stem which generated this result transmitted reference range : 4.26 - 5.52 10*6/?L. The reference range was not used to interpret this result as normal/abnormal . HGB (test code = 7.9 g/dL 12.2-16.4 L 718-7) HCT (test code = 25.0 % 38.4-49.3 L 4544-3) MCV (test code = 85.6 fL 81.7-95.6 787-2) MCH (test code = 27.1 pg 26.1-32.7 785-6) MCHC (test code = 31.6 g/dL 31.2-35 786-4) RDW-SD (test code = 42.5 fL 38.5-51.6 44294-0) RDW-CV (test code = 13.5 % 12.1-15.4 788-0) PLT (test code = See_Comment [Automated 777-3) message] The sy stem which generated this result transmitted reference range : 150 - 328 10*3/ ?L. The reference r batsheva was not used to interpret this result as normal/abnormal . MPV (test code = 9.9 fL 9.8-13 21902-3) NRBC/100 WBC (test See_Comment [Automat ed code = 7106215870) message] The system which generated this result transmitted reference range : 0.0 - 10.0 /100 WBCs. The refer ence range was not u sed to interpret th is result as normal/abnormal . NRBC x10^3 (test code <0.01 See_Comment [Auto mated = 6583178185) message] The s ystem which generated this result transmitted reference range : 10*3/?L. The reference range was not used to interpret this result as normal/abnormal . GRAN MAT (NEUT) % 55.5 % (test code = 770-8) IMM GRAN % (test code 0.30 % = 9678330334) LYMPH % (test code = 27.3 % 736-9) MONO % (test code = 11.3 % 5905-5) EOS % (test code = 5.1 % 713-8) BASO % (test code = 0.5 % 706-2) GRAN MAT x10^3(ANC) 3.48 10*3/uL 1.99-6.95 (test code = 4641867424) IMM GRAN x10^3 (test <0.03 0-0.06 code = 0458236673) LYMPH x10^3 (test code 1.71 10*3/uL 1.09-3.23 = 731-0) MONO x10^3 (test code 0.71 10*3/uL 0.36-1.02 = 742-7) EOS x10^3 (test code = 0.32 10*3/uL 0.06-0.53 711-2) BASO x10^3 (test code 0.03 10*3/uL 0.01-0.09 = 704-7) Lab Interpretation Abnormal (test code = 27972-1) [facility]2020-07-15 23:21:00 Test Item Value Reference Range Interpretation Comments POCT GLU (test code = 0067863658) 98 mg/dL 70-110 Lab Interpretation (test code = Normal 81686-3) [facility]SE (AUTOMATED)2020-07-15 18:58:00 Test Item Value Reference Range Interpretation Comments POCT GLU (test code = 6796936437) 153 mg/dL 70-110 H Lab Interpretation (test code = Abnormal 08376-9) [facility]-REACTIVE [id number] 17:07:00 Test Item Value Reference Range Interpretation Comments CRP (test code = 5721701328) 3.5 mg/dL <0.8 H Lab Interpretation (test code = Abnormal 18423-9) [id number] 11:48:00 Test Item Value Reference Range Interpretation Comments ESR (test code = See_Comment H [Automated message] 9499825492) The system [employer] generated this result transmitted ref erence range: 0 - 10 m m/HR. The reference r batsheva was not used to interpret this result as normal/abnor mal. Lab Interpretation (test Abnormal code = 45721-4) [facility] METABOLIC PANEL (NA, K, CL, CO2, GLUCOSE, BUN, CREATININE, CA)2020-07-15 11:15:00 Test Item Value Reference Range Interpretation Comments NA (test code = 137 mmol/L 135-145 8421710929) K (test code = 3.6 mmol/L 3.5-5 9011053716) CL (test code = 107 mmol/L 98-108 5295834113) CO2 TOTAL (test code = 23 mmol/L 23-31 4216988436) AGAP (test code = 2-16 7147323795) BUN (test code = 16 mg/dL 7-23 9691190836) GLUCOSE (test code = 189 mg/dL 70-110 H 9260089047) CREATININE (test code = 1.22 mg/dL 0.6-1.25 5865619379) CALCIUM (test code = 8.2 mg/dL 8.6-10.6 L 9984834572) eGFR Calculation mL/min/1.73m2 (Non-) (test code = 4375762380) eGFR Calculation mL/min/1.73m2 () (test code = 1781474991) DIANE (test code = DIANE) Association of Glomerular Filtration Rate (GFR) and Staging of Kidney Disease* + --+ --+ ------+| GFR (mL/min/1.73 m2) ?| With Kidney Damage ?| ?Without Kidney Damage+ --------+ --------+ +| ?>90 ?| ?Stage one ?| ? Normal ?+ ---+ ---+ -------+| ?60-89 ?| ?Stage two ?| ? Decreased GFR ? + --+ --+ ------+| ?30-59 ?| ?Stage three ?| ? Stage three ? + --+ --+ ------+| ?15-29 ?| ?Stage four ? | ? Stage four ?+ ---+ ---+ -------+| ?<15 (or dialysis) ? ?| ?Stage five ? | ? Stage five ?+ ---+ ---+ -------+ *Each stage assumes the associated GFR level has been in effect for at least three months. ?Stages 1 to 5, with or without kidney disease, indicate chronic kidney disease. Notes: Determination of stages one and two (with eGFR >59mL/min/1.73 m2) requires estimation of kidney damage for at least three months as defined by structural or functional abnormalities of the kidney, manifested by either:Pathological abnormalities or Markers of kidney damage (including abnormalities in the composition of the blood or urine or abnormalities in imaging tests). Lab Interpretation Abnormal (test code = 67324-8) [facility]:15[facility]00 Test Item Value Reference Range Interpretation Comments MAGNESIUM (test code = 1016803337) 1.8 mg/dL 1.7-2.4 Lab Interpretation (test code = Normal 25067-0) [facility]2020-[facility]14 22:47:00 Test Item Value Reference Range Interpretation Comments POCT GLU (test code = 6544008429) 204 mg/dL 70-110 H Lab Interpretation (test code = Abnormal 12157-1) [facility] Center[facility] - Draw no more than 60 minutes before the 1400 dose.2020-07-14 22:38:00 Test Item Value Reference Range Interpretation Comments VANCO TROUGH (test code 17.4 ug/mL 10-20 = 4964622575) DIANE (test code = DIANE) Toxic Range: ?>20 ug/mL 15-20 ug/mL is recommended for severe infection or when Vancomycin MILLICENT is greater than or equal to 2. Lab Interpretation (test Normal code = 28248-0) [facility] GLUCOSE (AUTOMATED)2020-07-14 18:02:00 Test Item Value Reference Range Interpretation Comments POCT GLU (test code = 7803273855) 126 mg/dL 70-110 H Lab Interpretation (test code = Abnormal 58538-5) [facility] GLUCOSE (AUTOMATED)2020-07-14 13:58:00 Test Item Value Reference Range Interpretation Comments POCT GLU (test code = 7017056237) 104 mg/dL 70-110 Lab Interpretation (test code = Normal 96401-3) [facility] (NA, K, CL, CO2, GLUCOSE, BUN, CREATININE, CA)2020-07-14 12:45:00 Test Item Value Reference Range Interpretation Comments NA (test code = 136 mmol/L 135-145 0422761654) K (test code = 3.5 mmol/L 3.5-5 8036122651) CL (test code = 104 mmol/L 98-108 9486049478) CO2 TOTAL (test code = 27 mmol/L 23-31 5720889097) AGAP (test code = 2-16 3552962221) BUN (test code = 17 mg/dL 7-23 7981679951) GLUCOSE (test code = 110 mg/dL 70-110 6697184038) CREATININE (test code = 1.38 mg/dL 0.6-1.25 H 1070140100) CALCIUM (test code = 8.0 mg/dL 8.6-10.6 L 4583576617) eGFR Calculation mL/min/1.73m2 (Non-) (test code = 2256208760) eGFR Calculation mL/min/1.73m2 () (test code = 9328136065) DIANE (test code = DIANE) Association of Glomerular Filtration Rate (GFR) and Staging of Kidney Disease* + --+ --+ ------+| GFR (mL/min/1.73 m2) ?| With Kidney Damage ?| ?Without Kidney Damage+ --------+ --------+ +| ?>90 ?| ?Stage one ?| ? Normal ?+ ---+ ---+ -------+| ?60-89 ?| ?Stage two ?| ? Decreased GFR ? + --+ --+ ------+| ?30-59 ?| ?Stage three ?| ? Stage three ? + --+ --+ ------+| ?15-29 ?| ?Stage four ? | ? Stage four ?+ ---+ ---+ -------+| ?<15 (or dialysis) ? ?| ?Stage five ? | ? Stage five ?+ ---+ ---+ -------+ *Each stage assumes the associated GFR level has been in effect for at least three months. ?Stages 1 to 5, with or without kidney disease, indicate chronic kidney disease. Notes: Determination of stages one and two (with eGFR >59mL/min/1.73 m2) requires estimation of kidney damage for at least three months as defined by structural or functional abnormalities of the kidney, manifested by either:Pathological abnormalities or Markers of kidney damage (including abnormalities in the composition of the blood or urine or abnormalities in imaging tests). Lab Interpretation Abnormal (test code = 11169-2) [facility] with Roocnxcwvcaf9315-07-03 12:33:00 Test Item Value Reference Range Interpretation Comments WBC (test code = See_Comment [Automated 6098-2) message] The sy stem which generated this result transmitted reference range : 4.20 - 10.70 10*3/?L. The reference range was not used to interpret this result as normal/abnormal . RBC (test code = See_Comment L [Automated 939-3) message] The sy stem which generated this result transmitted reference range : 4.26 - 5.52 10*6/?L. The reference range was not used to interpret this result as normal/abnormal . HGB (test code = 8.0 g/dL 12.2-16.4 L 718-7) HCT (test code = 25.5 % 38.4-49.3 L 4544-3) MCV (test code = 85.9 fL 81.7-95.6 787-2) MCH (test code = 26.9 pg 26.1-32.7 785-6) MCHC (test code = 31.4 g/dL 31.2-35 786-4) RDW-SD (test code = 41.3 fL 38.5-51.6 40726-8) RDW-CV (test code = 13.2 % 12.1-15.4 788-0) PLT (test code = See_Comment [Automated 777-3) message] The sy stem which generated this result transmitted reference range : 150 - 328 10*3/ ?L. The reference r batsheva was not used to interpret this result as normal/abnormal . MPV (test code = 10.4 fL 9.8-13 73155-3) NRBC/100 WBC (test See_Comment [Automat ed code = 9556510249) message] The system which generated this result transmitted reference range : 0.0 - 10.0 /100 WBCs. The refer ence range was not u sed to interpret th is result as normal/abnormal . NRBC x10^3 (test code <0.01 See_Comment [Auto mated = 8880376348) message] The s ystem which generated this result transmitted reference range : 10*3/?L. The reference range was not used to interpret this result as normal/abnormal . GRAN MAT (NEUT) % 57.7 % (test code = 770-8) IMM GRAN % (test code 0.20 % = 6539572637) LYMPH % (test code = 22.6 % 736-9) MONO % (test code = 13.5 % 5905-5) EOS % (test code = 5.5 % 713-8) BASO % (test code = 0.5 % 706-2) GRAN MAT x10^3(ANC) 3.48 10*3/uL 1.99-6.95 (test code = 8336423528) IMM GRAN x10^3 (test <0.03 0-0.06 code = 8430983031) LYMPH x10^3 (test code 1.36 10*3/uL 1.09-3.23 = 731-0) MONO x10^3 (test code 0.81 10*3/uL 0.36-1.02 = 742-7) EOS x10^3 (test code = 0.33 10*3/uL 0.06-0.53 711-2) BASO x10^3 (test code 0.03 10*3/uL 0.01-0.09 = 704-7) Lab Interpretation Abnormal (test code = 75282-6) [facility] CenterPROTHROMBIN TIME / [id number] 12:17:00 Test Item Value Reference Range Interpretation Comments PROTIME PATIENT (test See_Comment [Auto mated message] code = 5964-2) The system [employer] generated this result transmitted ref erence range: 12.0 - 1 4.7 Seconds. The re ference range was not u sed to interpret this result as normal/abnor mal. INR (test code = 6301-6) Nor mal INR <1.1; Warfarin Therap eutic range 2.0 to 3. 0 or 2.5 to 3.5, dep ending upon the indica tions. Lab Interpretation (test Normal code = 75367-7) [facility] Center[facility] ONLY COVID MMIEEQOHCOPOEU4833-88-52 04:10:00COVID DMT InterpretationInterpretation/Recommendations:Molecular NAAT Tests for Active Infection with the SARS-CoV-2 Virus:The patient has currently tested negative for the SARS-CoV-2 virus that causesCOVID-19 illness. This most likely indicates that the patient does not have an active infection withthe SARS-CoV-2 virus. However, infection is not completely ruled out as the false negative rate for molecular NAAT testing using a nasopharyngeal sample can be up to 30%, mostly dependent on the timingof sample collection in relation to illness onset and any deficiencies in sampling techniques. If the patient has symptoms concerning for COVID-19 illness, a repeat NAAT test (PCR, Rapid ID Now, etc.) should be performed, at which time the SARS-CoV-2 virus - if present - may have reached a detectable viral load (usually peaking by the end of the first week of symptoms). Tests for IgM and/or IgG Antibodies to the SARS-CoV-2 Virus:If the patient develops COVID-19 illness in the future, testing for IgMand IgG antibodies approximately 3 weeks after illness onset will likely indicate if the patient hasproduced antibodies to the SARS-CoV-2 virus. However, some patients may take longer to develop detectable antibodies, while some patients who were infected with SARS-CoV-2 may never develop antibodies.While antibodies to SARS-CoV-2 may provide some degree of immunity, at this time the strength and duration of the antibody response is unknown. Interpretation Result Comments:These interpretation comments are based upon all COVID-19 testing the patient has had at [facility], including molecular NAAT testing (more commonly known as PCR testing and Rapid ID Now testing) and antibody testing. It does not take into account any testing that a patient has had outside of the [facility] medical record. [facility] LABORATORY SERVICESCOVID ResultsSARS- CoV-2 Rapid ID NOW (no units) ? ? Date ? Value ? 07/10/2020 ? Not Detected ? ? ? 05/29/2020 ? Not Detected ? ? ? 03/16/2020 ? Not Detected ? ? ? 02/03/2020 ? Not Detected ? ? ? 11/16/2019 ? Not Detected ? ? ? 09/17/2019 ? Not Detected ? [facility] LABORATORY SERVICES [facility] GLUCOSE (AUTOMATED)2020-07-13 22:37:00 Test Item Value Reference Range Interpretation Comments POCT GLU (test code = 6215665849) 121 mg/dL 70-110 H Lab Interpretation (test code = Abnormal 71318-7) [facility] GLUCOSE (AUTOMATED)2020-07-13 17:43:00 Test Item Value Reference Range Interpretation Comments POCT GLU (test code = 7366259693) 138 mg/dL 70-110 H Lab Interpretation (test code = Abnormal 07317-7) [facility] GLUCOSE (AUTOMATED)2020-07-13 14:00:00 Test Item Value Reference Range Interpretation Comments POCT GLU (test code = 9118746228) 96 mg/dL 70-110 Lab Interpretation (test code = Normal 48067-2) [facility] GLUCOSE (AUTOMATED)2020-07-13 11:44:00 Test Item Value Reference Range Interpretation Comments POCT GLU (test code = 4294921700) 118 mg/dL 70-110 H Lab Interpretation (test code = Abnormal 45434-9) [facility] with Gaemgthokkqx5698-30-34 11:24:00 Test Item Value Reference Range Interpretation Comments WBC (test code = See_Comment [Automated 6690-2) message] The sy stem which generated this result transmitted reference range : 4.20 - 10.70 10*3/?L. The reference range was not used to interpret this result as normal/abnormal . RBC (test code = See_Comment L [Automated 789-8) message] The sy stem which generated this result transmitted reference range : 4.26 - 5.52 10*6/?L. The reference range was not used to interpret this result as normal/abnormal . HGB (test code = 8.2 g/dL 12.2-16.4 L 718-7) HCT (test code = 26.3 % 38.4-49.3 L 4544-3) MCV (test code = 86.2 fL 81.7-95.6 787-2) MCH (test code = 26.9 pg 26.1-32.7 785-6) MCHC (test code = 31.2 g/dL 31.2-35 786-4) RDW-SD (test code = 40.8 fL 38.5-51.6 58750-6) RDW-CV (test code = 13.1 % 12.1-15.4 788-0) PLT (test code = See_Comment [Automated 777-3) message] The sy stem which generated this result transmitted reference range : 150 - 328 10*3/ ?L. The reference r batsheva was not used to interpret this result as normal/abnormal . MPV (test code = 10.3 fL 9.8-13 54338-6) NRBC/100 WBC (test See_Comment [Automat ed code = 4628168036) message] The system which generated this result transmitted reference range : 0.0 - 10.0 /100 WBCs. The refer ence range was not u sed to interpret th is result as normal/abnormal . NRBC x10^3 (test code <0.01 See_Comment [Auto mated = 7230282087) message] The s ystem which generated this result transmitted reference range : 10*3/?L. The reference range was not used to interpret this result as normal/abnormal . GRAN MAT (NEUT) % 56.8 % (test code = 770-8) IMM GRAN % (test code 0.40 % = 0342076584) LYMPH % (test code = 24.1 % 736-9) MONO % (test code = 10.9 % 5905-5) EOS % (test code = 7.3 % 713-8) BASO % (test code = 0.5 % 706-2) GRAN MAT x10^3(ANC) 3.13 10*3/uL 1.99-6.95 (test code = 7176113526) IMM GRAN x10^3 (test <0.03 0-0.06 code = 1076362578) LYMPH x10^3 (test code 1.33 10*3/uL 1.09-3.23 = 731-0) MONO x10^3 (test code 0.60 10*3/uL 0.36-1.02 = 742-7) EOS x10^3 (test code = 0.40 10*3/uL 0.06-0.53 711-2) BASO x10^3 (test code 0.03 10*3/uL 0.01-0.09 = 704-7) Lab Interpretation Abnormal (test code = 92836-6) [facility] (NA, K, CL, CO2, GLUCOSE, BUN, CREATININE, CA)2020-07-13 11:02:00 Test Item Value Reference Range Interpretation Comments NA (test code = 137 mmol/L 135-145 6984218165) K (test code = 3.4 mmol/L 3.5-5 L 8550579459) CL (test code = 104 mmol/L 98-108 1020022052) CO2 TOTAL (test code = 25 mmol/L 23-31 5978827163) AGAP (test code = 2-16 5434484287) BUN (test code = 17 mg/dL 7-23 2966388059) GLUCOSE (test code = 93 mg/dL 70-110 6649622166) CREATININE (test code = 1.38 mg/dL 0.6-1.25 H 0146004236) CALCIUM (test code = 8.2 mg/dL 8.6-10.6 L 7904255371) eGFR Calculation mL/min/1.73m2 (Non-) (test code = 2000360300) eGFR Calculation mL/min/1.73m2 () (test code = 7040120576) DIANE (test code = DIANE) Association of Glomerular Filtration Rate (GFR) and Staging of Kidney Disease* + --+ --+ ------+| GFR (mL/min/1.73 m2) ?| With Kidney Damage ?| ?Without Kidney Damage+ --------+ --------+ +| ?>90 ?| ?Stage one ?| ? Normal ?+ ---+ ---+ -------+| ?60-89 ?| ?Stage two ?| ? Decreased GFR ? + --+ --+ ------+| ?30-59 ?| ?Stage three ?| ? Stage three ? + --+ --+ ------+| ?15-29 ?| ?Stage four ? | ? Stage four ?+ ---+ ---+ -------+| ?<15 (or dialysis) ? ?| ?Stage five ? | ? Stage five ?+ ---+ ---+ -------+ *Each stage assumes the associated GFR level has been in effect for at least three months. ?Stages 1 to 5, with or without kidney disease, indicate chronic kidney disease. Notes: Determination of stages one and two (with eGFR >59mL/min/1.73 m2) requires estimation of kidney damage for at least three months as defined by structural or functional abnormalities of the kidney, manifested by either:Pathological abnormalities or Markers of kidney damage (including abnormalities in the composition of the blood or urine or abnormalities in imaging tests). Lab Interpretation Abnormal (test code = 18820-7) [facility] GLUCOSE (AUTOMATED)2020-07-13 01:46:00 Test Item Value Reference Range Interpretation Comments POCT GLU (test code = 3912526195) 115 mg/dL 70-110 H Lab Interpretation (test code = Abnormal 51440-6) [facility] Center[facility]OS[facility]IN (A1C)2020-07-13 00:45:00 Test Item Value Reference Range Interpretation Comments HGB A1C (test code = 9.8 % 4-6 H 4548-4) DIANE (test code = DIANE) %A1C (NGSP) Interpretation (ADA)4.8-5.6 ? ? Normal or (Non-Diabetic Range)5.7-6.4 ? ? Increased Risk (Pre-Diabetic)>6.5 ?Diabetes Indicated Lab Interpretation Abnormal (test code = 25438-6) [facility] GLUCOSE (AUTOMATED)2020-07-12 22:23:00 Test Item Value Reference Range Interpretation Comments POCT GLU (test code = 9471309238) 141 mg/dL 70-110 H Lab Interpretation (test code = Abnormal 08471-1) [facility] Center[facility] - Draw within 30 minutes prior to 4TH dose.2020-07-12 22:06:00 Test Item Value Reference Range Interpretation Comments VANCO TROUGH (test code 11.8 ug/mL 10-20 = 3976275927) DIANE (test code = DIANE) Toxic Range: ?>20 ug/mL 15-20 ug/mL is recommended for severe infection or when Vancomycin MILLICENT is greater than or equal to 2. Lab Interpretation (test Normal code = 26512-6) [facility] GLUCOSE (AUTOMATED)2020-07-12 17:24:00 Test Item Value Reference Range Interpretation Comments POCT GLU (test code = 2882886763) 171 mg/dL 70-110 H Lab Interpretation (test code = Abnormal 94997-2) [facility] (NA, K, CL, CO2, GLUCOSE, BUN, CREATININE, CA)2020-07-12 11:09:00 Test Item Value Reference Range Interpretation Comments NA (test code = 140 mmol/L 135-145 8149415653) K (test code = 3.7 mmol/L 3.5-5 4240998914) CL (test code = 106 mmol/L 98-108 0661620304) CO2 TOTAL (test code = 27 mmol/L 23-31 8115009585) AGAP (test code = 2-16 0910497616) BUN (test code = 15 mg/dL 7-23 2415449817) GLUCOSE (test code = 98 mg/dL 70-110 3764937805) CREATININE (test code = 1.18 mg/dL 0.6-1.25 9439503906) CALCIUM (test code = 8.3 mg/dL 8.6-10.6 L 5920827394) eGFR Calculation mL/min/1.73m2 (Non-) (test code = 9557533762) eGFR Calculation mL/min/1.73m2 () (test code = 6295532769) DIANE (test code = DIANE) Association of Glomerular Filtration Rate (GFR) and Staging of Kidney Disease* + --+ --+ ------+| GFR (mL/min/1.73 m2) ?| With Kidney Damage ?| ?Without Kidney Damage+ --------+ --------+ +| ?>90 ?| ?Stage one ?| ? Normal ?+ ---+ ---+ -------+| ?60-89 ?| ?Stage two ?| ? Decreased GFR ? + --+ --+ ------+| ?30-59 ?| ?Stage three ?| ? Stage three ? + --+ --+ ------+| ?15-29 ?| ?Stage four ? | ? Stage four ?+ ---+ ---+ -------+| ?<15 (or dialysis) ? ?| ?Stage five ? | ? Stage five ?+ ---+ ---+ -------+ *Each stage assumes the associated GFR level has been in effect for at least three months. ?Stages 1 to 5, with or without kidney disease, indicate chronic kidney disease. Notes: Determination of stages one and two (with eGFR >59mL/min/1.73 m2) requires estimation of kidney damage for at least three months as defined by structural or functional abnormalities of the kidney, manifested by either:Pathological abnormalities or Markers of kidney damage (including abnormalities in the composition of the blood or urine or abnormalities in imaging tests). Lab Interpretation Abnormal (test code = 68694-7) [facility] with Lrkjnofgcith5576-43-32 10:44:00 Test Item Value Reference Range Interpretation Comments WBC (test code = See_Comment [Automated 6690-2) message] The sy stem which generated this result transmitted reference range : 4.20 - 10.70 10*3/?L. The reference range was not used to interpret this result as normal/abnormal . RBC (test code = See_Comment L [Automated 789-8) message] The sy stem which generated this result transmitted reference range : 4.26 - 5.52 10*6/?L. The reference range was not used to interpret this result as normal/abnormal . HGB (test code = 9.0 g/dL 12.2-16.4 L 718-7) HCT (test code = 28.7 % 38.4-49.3 L 4544-3) MCV (test code = 87.2 fL 81.7-95.6 787-2) MCH (test code = 27.4 pg 26.1-32.7 785-6) MCHC (test code = 31.4 g/dL 31.2-35 786-4) RDW-SD (test code = 41.7 fL 38.5-51.6 43009-6) RDW-CV (test code = 13.1 % 12.1-15.4 788-0) PLT (test code = See_Comment [Automated 777-3) message] The sy stem which generated this result transmitted reference range : 150 - 328 10*3/ ?L. The reference r batsheva was not used to interpret this result as normal/abnormal . MPV (test code = 10.0 fL 9.8-13 72398-1) NRBC/100 WBC (test See_Comment [Automat ed code = 7544171621) message] The system which generated this result transmitted reference range : 0.0 - 10.0 /100 WBCs. The refer ence range was not u sed to interpret th is result as normal/abnormal . NRBC x10^3 (test code <0.01 See_Comment [Auto mated = 0858686838) message] The s ystem which generated this result transmitted reference range : 10*3/?L. The reference range was not used to interpret this result as normal/abnormal . GRAN MAT (NEUT) % 55.8 % (test code = 770-8) IMM GRAN % (test code 0.30 % = 0815617167) LYMPH % (test code = 25.8 % 736-9) MONO % (test code = 12.7 % 5905-5) EOS % (test code = 4.8 % 713-8) BASO % (test code = 0.6 % 706-2) GRAN MAT x10^3(ANC) 3.52 10*3/uL 1.99-6.95 (test code = 0543210848) IMM GRAN x10^3 (test <0.03 0-0.06 code = 6195918662) LYMPH x10^3 (test code 1.63 10*3/uL 1.09-3.23 = 731-0) MONO x10^3 (test code 0.80 10*3/uL 0.36-1.02 = 742-7) EOS x10^3 (test code = 0.30 10*3/uL 0.06-0.53 711-2) BASO x10^3 (test code 0.04 10*3/uL 0.01-0.09 = 704-7) Lab Interpretation Abnormal (test code = 91433-8) [facility] GLU[facility]SE (AUTOMATED)2020-07-12 02:49:00 Test Item Value Reference Range Interpretation Comments POCT GLU (test code = 9982254399) 186 mg/dL 70-110 H Lab Interpretation (test code = Abnormal 82590-9) [facility] GLUCOSE (AUTOMATED)2020-07-12 02:49:00 Test Item Value Reference Range Interpretation Comments POCT GLU (test code = 5361052427) 213 mg/dL 70-110 H Lab Interpretation (test code = Abnormal 00891-2) [facility] HEAD WO UOBRNLLU3832-27-25 01:02:41 Impression: 1. ?Radiographically unremarkable unenhanced CAT scan of the head.Specifically, no Cat Scan evidence of acute infarcts, intracranial bleeds,or masses. ASPECTS score 10 out of 10 RL: 7423 AFC: 32743 Procedure: ? CT HEAD/BRAIN WOC 2/ 7:02 PM Ordering physician: TARA CORONA Clinical indication: Headache Comparison: None TECHNIQUE: ?contiguous axial images were obtained from base to vertex, inbrain and bone window, without the administration of contrast media.?CTscan done according to ALARA (As Low as Reasonably Achievable)? Fi ndings: The sulci and ventricular system are unremarkable in size andconfiguration. ?No intra or extra axial fluid collections. ?No abnormalregions of increased or decreased attenuation. ? ?The visualized bonycalvarium, facial bones, orbits, and paranasal sinuses are radiographicallyunremarkable in appearance. Carotid siphon and vertebral arterycalcifications. [facility], Radiant Results Inft User - 07/11/2020 7:03 PM CSTProcedure: CT HEAD/BRAIN WO07/11/2020 7:02 PMOrdering physician: TARA CORONA Clinical indication: HeadacheComparison: NoneTECHNIQUE: contiguous axial images were obtained from base to vertex, inbrain and bone window, without the administration of contrast media.?CTscan done according to ALARA (As Low as Reasonably Achievable)?Findings: The sulci and ventricular system are unremarkab le in size andconfiguration. No intra or extra axial fluid collections. No abnormalregions of increased or decreased attenuation. The visualized bonycalvarium, facial bones, orbits, and paranasal sinuses are radiographicallyunremarkable in appearance. Carotid siphon and vertebral arterycalcifications.IMPRESSIONImpression:1. Radiographically unremarkable unenhanced CAT scan of the head.Specifically, no Cat Scan evidence of acute infarcts, intracranial bleeds,or masses.ASPECTS score 10 out of 10RL: [id number]: [id number] signed by Elie Delacruz MD at 07/11/2020 7:[facility]2020-07-11 19:48:00 Test Item Value Reference Range Interpretation Comments POCT GLU (test code = 7863974148) 162 mg/dL 70-110 H Lab Interpretation (test code = Abnormal 97100-5) [facility]2020-07-11 17:04:00 Test Item Value Reference Range Interpretation Comments POCT GLU (test code = 4719051129) 171 mg/dL 70-110 H Lab Interpretation (test code = Abnormal 48353-3) [facility]2020-07-11 13:55:00 Test Item Value Reference Range Interpretation Comments POCT GLU (test code = 6759861694) 183 mg/dL 70-110 H Lab Interpretation (test code = Abnormal 90941-4) [facility] CenterXR [facility]OT <3 VW [id number] 03:21:53 No acute osseous abnormality identified in the right foot. RL: 460 AFC: [id number] Electronically signedby Celia Koo MD, PhD at 07/10/2020 9:21 PMOrdering physician: JANETH GOODSON INDICATION: Right foot pain, history of diabetes, right foot wounds COMPARISON: None FINDINGS: 3 views of the right foot. No acute fracture or dislocation isappreciated. No osseous destructive lesion is seen to definitively suggestosteomyelitis. No definite soft tissue air is appreciated. [facility], Radiant Results Inft User - 07/10/2020 9:22 PM CSTOrdering physician: JANETH GOODSONINDICATION: Right foot pain, history of diabetes, right foot woundsCOMPARISON: NoneFINDINGS: 3 views of the right foot. No acute fracture or dislocation isappreciated. No osseous destructive lesion is seen to definitively suggestosteomyelitis. No definite soft tissue air is appreciated.IMPRESSIONNo acute osseous abnormality identified in the right foot.RL: 460AFC: [id number] signed by Celia Koo MD, PhD at 19:21 PM [facility] CenterSEDIMENTATION [id number] 03:09:00 Test Item Value Reference Range Interpretation Comments ESR (test code = >120 See_Comment H [Automated message] [id number]) The system [employer] generated this result transmitted ref erence range: 0 - 10 m m/HR. The reference r batsheva was not used to interpret this result as normal/abnor mal. Lab Interpretation (test Abnormal code = 07947-6) [facility] CenterCOVID[facility] (ID NOW RAPID TESTING)2020-07-11 02:31:00 Test Item Value Reference Range Interpretation Comments SARS-CoV-2 Rapid ID NOW Not Detected Not Detected (test code = 63679-6) DIANE (test code = DIANE) ID NOW COVID-19 Assay is an isothermal nucleic acid amplification test intended for the qualitative detection of nucleic acid from SARS-CoV-2 viral RNA in nasopharyngeal (STRAIGHTENING MACHINE OPERATOR) specimens. It is used under Emergency Use Authorization (EUA) by FDA. The limit of detection (LOD) of the assay is 125 Genome Equivalents/mL. A positive result is indicative of the presence of SARS-CoV-2 RNA. ?Clinical correlation with patient history and other diagnostic [...] for repeat patient testing if clinically indicated. Lab Interpretation Normal (test code = 12299-2) [facility] Metabolic Panel (NA, K, CL, CO2, GLUCOSE, BUN, CREATININE, CA)2020-07-11 02:30:00 Test Item Value Reference Range Interpretation Comments NA (test code = 139 mmol/L 135-145 0778446679) K (test code = 3.5 mmol/L 3.5-5 9984487036) CL (test code = 106 mmol/L 98-108 6188104846) CO2 TOTAL (test code = 25 mmol/L 23-31 7932409845) AGAP (test code = 2-16 1630184308) BUN (test code = 11 mg/dL 7-23 6553221171) GLUCOSE (test code = 234 mg/dL 70-110 H 7419245764) CREATININE (test code = 0.76 mg/dL 0.6-1.25 0843287830) CALCIUM (test code = 8.5 mg/dL 8.6-10.6 L 3003482304) eGFR Calculation mL/min/1.73m2 (Non-) (test code = 1401040852) eGFR Calculation mL/min/1.73m2 () (test code = 8048964781) DIANE (test code = DIANE) Association of Glomerular Filtration Rate (GFR) and Staging of Kidney Disease* + --+ --+ ------+| GFR (mL/min/1.73 m2) ?| With Kidney Damage ?| ?Without Kidney Damage+ --------+ --------+ +| ?>90 ?| ?Stage one ?| ? Normal ?+ ---+ ---+ -------+| ?60-89 ?| ?Stage two ?| ? Decreased GFR ? + --+ --+ ------+| ?30-59 ?| ?Stage three ?| ? Stage three ? + --+ --+ ------+| ?15-29 ?| ?Stage four ? | ? Stage four ?+ ---+ ---+ -------+| ?<15 (or dialysis) ? ?| ?Stage five ? | ? Stage five ?+ ---+ ---+ -------+ *Each stage assumes the associated GFR level has been in effect for at least three months. ?Stages 1 to 5, with or without kidney disease, indicate chronic kidney disease. Notes: Determination of stages one and two (with eGFR >59mL/min/1.73 m2) requires estimation of kidney damage for at least three months as defined by structural or functional abnormalities of the kidney, manifested by either:Pathological abnormalities or Markers of kidney damage (including abnormalities in the composition of the blood or urine or abnormalities in imaging tests). Lab Interpretation Abnormal (test code = 73368-3) [facility] CenterHep[facility] Function Panel (ALB, T.PRO, BILI T, BU/BC, ALT, AST, ALK PHOS)2020-07-11 02:30:00 Test Item Value Reference Range Interpretation Comments TOTAL BILI (test code = 1846842781) 0.5 mg/dL 0.1-1.1 BILI UNCON (test code = 7754665466) 0.5 mg/dL 0.1-1.1 BILI CONJ (test code = 0813401943) 0.0 mg/dL 0-0.3 T PROTEIN (test code = 5222778570) 7.0 g/dL 6.3-8.2 ALBUMIN (test code = 8371929295) 3.8 g/dL 3.5-5 ALK PHOS (test code = 0555283821) 117 U/L 34-122 ALTv (test code = 1742-6) 8 U/L 5-50 AST(SGOT) (test code = 6947796031) 27 U/L 13-40 Lab Interpretation (test code = Normal 78524-3) [facility] CenterProthrombin Time (PT) / [id number] 02:25:00 Test Item Value Reference Range Interpretation Comments PROTIME PATIENT (test See_Comment H [Auto mated message] code = 5964-2) The system wh ich generated this result transmitted ref erence range: 12.0 - 1 4.7 Seconds. The reference range was not used to int erpret this result as normal/abnormal . INR (test code = 6301-6) Nor mal INR <1.1; Warfarin Therap eutic range 2.0 to 3. 0 or 2.5 to 3.5, dep ending upon the indica tions. Lab Interpretation (test Abnormal code = 52812-1) [facility] CenterCBC with [id number] 02:18:00 Test Item Value Reference Range Interpretation Comments WBC (test code = See_Comment [Automated 6690-2) message] The sy stem which generated this result transmitted reference range : 4.20 - 10.70 10*3/?L. The reference range was not used to interpret this result as normal/abnormal . RBC (test code = See_Comment L [Automated 789-8) message] The sy stem which generated this result transmitted reference range : 4.26 - 5.52 10*6/?L. The reference range was not used to interpret this result as normal/abnormal . HGB (test code = 9.5 g/dL 12.2-16.4 L 718-7) HCT (test code = 29.1 % 38.4-49.3 L 4544-3) MCV (test code = 84.1 fL 81.7-95.6 787-2) MCH (test code = 27.5 pg 26.1-32.7 785-6) MCHC (test code = 32.6 g/dL 31.2-35 786-4) RDW-SD (test code = 39.2 fL 38.5-51.6 23076-7) RDW-CV (test code = 12.9 % 12.1-15.4 788-0) PLT (test code = See_Comment [Automated 777-3) message] The sy stem which generated this result transmitted reference range : 150 - 328 10*3/ ?L. The reference r batsheva was not used to interpret this result as normal/abnormal . MPV (test code = 9.4 fL 9.8-13 L 12559-0) NRBC/100 WBC (test See_Comment [Automat ed code = 2755134165) message] The system which generated this result transmitted reference range : 0.0 - 10.0 /100 WBCs. The refer ence range was not u sed to interpret th is result as normal/abnormal . NRBC x10^3 (test code <0.01 See_Comment [Auto mated = 9162201303) message] The s ystem which generated this result transmitted reference range : 10*3/?L. The reference range was not used to interpret this result as normal/abnormal . GRAN MAT (NEUT) % 62.1 % (test code = 770-8) IMM GRAN % (test code 0.50 % = 1314389147) LYMPH % (test code = 23.3 % 736-9) MONO % (test code = 9.8 % 5905-5) EOS % (test code = 3.8 % 713-8) BASO % (test code = 0.5 % 706-2) GRAN MAT x10^3(ANC) 4.04 10*3/uL 1.99-6.95 (test code = 4861264319) IMM GRAN x10^3 (test 0.03 10*3/uL 0-0.06 code = 8898275742) LYMPH x10^3 (test code 1.52 10*3/uL 1.09-3.23 = 731-0) MONO x10^3 (test code 0.64 10*3/uL 0.36-1.02 = 742-7) EOS x10^3 (test code = 0.25 10*3/uL 0.06-0.53 711-2) BASO x10^3 (test code 0.03 10*3/uL 0.01-0.09 = 704-7) Lab Interpretation Abnormal (test code = 59936-6) [facility]2020-06-02 18:02:00 Test Item Value Reference Range Interpretation Comments POCT GLU (test code = 5087821683) 162 mg/dL 70-110 H Lab Interpretation (test code = Abnormal 85758-4) [facility] CenterCOMP. METABOLIC PANEL (95207)2020-06-02 14:48:00 Test Item Value Reference Range Interpretation Comments NA (test code = 136 mmol/L 135-145 9463407755) K (test code = 4.7 mmol/L 3.5-5 6747393685) CL (test code = 105 mmol/L 98-108 3430612663) CO2 TOTAL (test code = 25 mmol/L 23-31 9169499290) AGAP (test code = 2-16 2623888838) BUN (test code = 17 mg/dL 7-23 6131762899) GLUCOSE (test code = 134 mg/dL 70-110 H 5036482736) CREATININE (test code = 0.80 mg/dL 0.6-1.25 4573578428) TOTAL BILI (test code = 0.3 mg/dL 0.1-1.9 5840217161) CALCIUM (test code = 8.3 mg/dL 8.6-10.6 L 2487934478) T PROTEIN (test code = 6.1 g/dL 6.3-8.2 L 7196817075) ALBUMIN (test code = 3.1 g/dL 3.5-5 L 2473608930) ALK PHOS (test code = 175 U/L 34-122 H 0242627829) ALTv (test code = 39 U/L 5-50 1742-6) AST(SGOT) (test code = 34 U/L 13-40 9097877742) eGFR Calculation mL/min/1.73m2 (Non-) (test code = 6309426605) eGFR Calculation mL/min/1.73m2 () (test code = 3693584556) DIANE (test code = DIANE) Association of Glomerular Filtration Rate (GFR) and Staging of Kidney Disease* + --+ --+ ------+| GFR (mL/min/1.73 m2) ?| With Kidney Damage ?| ?Without Kidney Damage+ --------+ --------+ +| ?>90 ?| ?Stage one ?| ? Normal ?+ ---+ ---+ -------+| ?60-89 ?| ?Stage two ?| ? Decreased GFR ? + --+ --+ ------+| ?30-59 ?| ?Stage three ?| ? Stage three ? + --+ --+ ------+| ?15-29 ?| ?Stage four ? | ? Stage four ?+ ---+ ---+ -------+| ?<15 (or dialysis) ? ?| ?Stage five ? | ? Stage five ?+ ---+ ---+ -------+ *Each stage assumes the associated GFR level has been in effect for at least three months. ?Stages 1 to 5, with or without kidney disease, indicate chronic kidney disease. Notes: Determination of stages one and two (with eGFR >59mL/min/1.73 m2) requires estimation of kidney damage for at least three months as defined by structural or functional abnormalities of the kidney, manifested by either:Pathological abnormalities or Markers of kidney damage (including abnormalities in the composition of the blood or urine or abnormalities in imaging tests). Lab Interpretation Abnormal (test code = 26542-0) [facility] GLUCOSE (AUTOMATED)2020-06-02 14:15:00 Test Item Value Reference Range Interpretation Comments POCT GLU (test code = 0016077393) 123 mg/dL 70-110 H Lab Interpretation (test code = Abnormal 08677-1) [facility] GLUCOSE (AUTOMATED)2020-06-02 12:41:00 Test Item Value Reference Range Interpretation Comments POCT GLU (test code = 2886343130) 158 mg/dL 70-110 H Lab Interpretation (test code = Abnormal 00340-3) [facility] CenterPROTHROMBIN TIME / [id number] 11:40:00 Test Item Value Reference Range Interpretation Comments PROTIME PATIENT (test See_Comment H [Auto mated message] code = 5964-2) The system [employer] generated this result transmitted ref erence range: 12.0 - 1 4.7 Seconds. The reference range was not used to int erpret this result as normal/abnormal . INR (test code = 6301-6) Nor mal INR <1.1; Warfarin Therap eutic range 2.0 to 3. 0 or 2.5 to 3.5, dep ending upon the indica tions. Lab Interpretation (test Abnormal code = 86999-3) [facility] WITH [id number] 11:03:00 Test Item Value Reference Range Interpretation Comments WBC (test code = See_Comment [Automated 6690-2) message] The sy stem which generated this result transmitted reference range : 4.20 - 10.70 10*3/?L. The reference range was not used to interpret this result as normal/abnormal . RBC (test code = See_Comment L [Automated 789-8) message] The sy stem which generated this result transmitted reference range : 4.26 - 5.52 10*6/?L. The reference range was not used to interpret this result as normal/abnormal . HGB (test code = 8.5 g/dL 12.2-16.4 L 718-7) HCT (test code = 26.1 % 38.4-49.3 L 4544-3) MCV (test code = 87.9 fL 81.7-95.6 787-2) MCH (test code = 28.6 pg 26.1-32.7 785-6) MCHC (test code = 32.6 g/dL 31.2-35 786-4) RDW-SD (test code = 47.8 fL 38.5-51.6 11996-8) RDW-CV (test code = 14.9 % 12.1-15.4 788-0) PLT (test code = See_Comment [Automated 777-3) message] The sy stem which generated this result transmitted reference range : 150 - 328 10*3/ ?L. The reference r batsheva was not used to interpret this result as normal/abnormal . MPV (test code = 9.9 fL 9.8-13 57801-8) NRBC/100 WBC (test See_Comment [Automat ed code = 4726109509) message] The system which generated this result transmitted reference range : 0.0 - 10.0 /100 WBCs. The refer ence range was not u sed to interpret th is result as normal/abnormal . NRBC x10^3 (test code <0.01 See_Comment [Auto mated = 2796706812) message] The s ystem which generated this result transmitted reference range : 10*3/?L. The reference range was not used to interpret this result as normal/abnormal . GRAN MAT (NEUT) % 50.3 % (test code = 770-8) IMM GRAN % (test code 0.40 % = 6784787365) LYMPH % (test code = 30.5 % 736-9) MONO % (test code = 11.0 % 5905-5) EOS % (test code = 7.4 % 713-8) BASO % (test code = 0.4 % 706-2) GRAN MAT x10^3(ANC) 2.71 10*3/uL 1.99-6.95 (test code = 5706842150) IMM GRAN x10^3 (test <0.03 0-0.06 code = 7744976645) LYMPH x10^3 (test code 1.64 10*3/uL 1.09-3.23 = 731-0) MONO x10^3 (test code 0.59 10*3/uL 0.36-1.02 = 742-7) EOS x10^3 (test code = 0.40 10*3/uL 0.06-0.53 711-2) BASO x10^3 (test code <0.03 0.01-0.09 = 704-7) Lab Interpretation Abnormal (test code = 03625-8) [facility] GLUCOSE (AUTOMATED)2020-06-02 10:52:00 Test Item Value Reference Range Interpretation Comments POCT GLU (test code = 9456899697) 141 mg/dL 70-110 H Lab Interpretation (test code = Abnormal 28834-7) [facility] GLUCOSE (AUTOMATED)2020-06-02 02:35:00 Test Item Value Reference Range Interpretation Comments POCT GLU (test code = 7532562796) 154 mg/dL 70-110 H Lab Interpretation (test code = Abnormal 19400-8) [facility] GLUCOSE (AUTOMATED)2020-06-01 23:15:00 Test Item Value Reference Range Interpretation Comments POCT GLU (test code = 6083322654) 72 mg/dL 70-110 Lab Interpretation (test code = Normal 95889-1) [facility] GLUCOSE (AUTOMATED)2020-06-01 23:15:00 Test Item Value Reference Range Interpretation Comments POCT GLU (test code = 2131721223) 109 mg/dL 70-110 Lab Interpretation (test code = Normal 59297-4) [facility] GLUCOSE (AUTOMATED)2020-06-01 13:49:00 Test Item Value Reference Range Interpretation Comments POCT GLU (test code = 6780492041) 115 mg/dL 70-110 H Lab Interpretation (test code = Abnormal 78578-6) [facility] GLUCOSE (AUTOMATED)2020-06-01 02:57:00 Test Item Value Reference Range Interpretation Comments POCT GLU (test code = 8892963115) 84 mg/dL 70-110 Lab Interpretation (test code = Normal 31805-7) [facility] GLUCOSE (AUTOMATED)2020-05-31 23:10:00 Test Item Value Reference Range Interpretation Comments POCT GLU (test code = 1884012957) 115 mg/dL 70-110 H Lab Interpretation (test code = Abnormal 95574-0) [facility]LAB [facility] COVID [id number] 20:03:00COVID DMT InterpretationInterpretation/Recommendations: Molecular NAAT Tests for Active Infection with the SARS-CoV-2 Virus: This patient has a history of testing negative on multiple occasions for wyuGEKS-DdI-2 virus that causes COVID-19 illness. The current test results are also negative. This mostlikely indicates that the patient does not have an active infection with the SARS-CoV-2 virus, especially if all of these tests coincide with the patient's current presentation. However, infection is not completely ruled out as the false negative rate for molecular NAAT testing using a nasopharyngeal sample can be up to 30%, mostly dependent on the timing of sample collection in relation to illness onset and any deficiencies in sampling techniques. If the patient continues to have persistent or worsening symptoms concerning for COVID-19 illness, a repeat NAAT test (PCR, Rapid ID Now, etc.) should be performed, at which time the SARS-CoV-2 virus - if present - may have reached a detectable viral load (usually peaking by the end of the first week of symptoms). Tests for IgM and/or IgG Antibodies to SARS-CoV-2 Virus: Testing for IgM and IgG antibodies 1-3 weeks after illness onset will indicate whether the patient has produced antibodies to the virus. At this time, it is not known if the producti on of antibodies - specifically IgG antibodies - indicates whether the patient is immune to future infections with the SARS-CoV-2 virus. Interpretation Result Comments:These interpretation comments are based upon all COVID-19 testing the patient has had at [facility], including molecular NAAT testing (more commonly known as PCR testing and Rapid ID Now testing) and antibody testing. It does not take into account any testing that a patient has had outside of the [facility] medical record. [facility] LABORATORY SERVICESCOVID ZvyogjrIODZ-BhV-3 Rapid ID NOW (no units) ? ? Date ? Value ? 05/29/2020 ? NotDetected ? ? ? 03/16/2020 ? Not Detected ? ? ? 02/03/2020 ? Not Detected ? ? ? 11/16/2019 ? Not Detected ? ? ? 09/17/2019 ? Not Detected ? [facility]2020-05-31 18:06:00 Test Item Value Reference Range Interpretation Comments POCT GLU (test code = 7785839340) 155 mg/dL 70-110 H Lab Interpretation (test code = Abnormal 42612-4) [facility] GLUCOSE (AUTOMATED)2020-05-31 18:06:00 Test Item Value Reference Range Interpretation Comments POCT GLU (test code = 8232196330) 124 mg/dL 70-110 H Lab Interpretation (test code = Abnormal 55400-2) [facility] CenterPROTHROMBIN TIME / [id number] 12:46:00 Test Item Value Reference Range Interpretation Comments PROTIME PATIENT (test See_Comment H [Auto mated message] code = 5964-2) The system [employer] generated this result transmitted ref erence range: 12.0 - 1 4.7 Seconds. The reference range was not used to int erpret this result as normal/abnormal . INR (test code = 6301-6) Nor mal INR <1.1; Warfarin Therap eutic range 2.0 to 3. 0 or 2.5 to 3.5, dep ending upon the indica tions. Lab Interpretation (test Abnormal code = 77990-7) [facility] METABOLIC PANEL (NA, K, CL, CO2, GLUCOSE, BUN, CREATININE, CA)2020-05-31 11:30:00 Test Item Value Reference Range Interpretation Comments NA (test code = 135 mmol/L 135-145 3374841789) K (test code = 4.3 mmol/L 3.5-5 4232321059) CL (test code = 106 mmol/L 98-108 9746363740) CO2 TOTAL (test code = 22 mmol/L 23-31 L 3069051743) AGAP (test code = 2-16 5977961046) BUN (test code = 16 mg/dL 7-23 2001165913) GLUCOSE (test code = 105 mg/dL 70-110 7764196453) CREATININE (test code = 0.59 mg/dL 0.6-1.25 L 7770887695) CALCIUM (test code = 8.3 mg/dL 8.6-10.6 L 1416906074) eGFR Calculation mL/min/1.73m2 (Non-) (test code = 0257703930) eGFR Calculation mL/min/1.73m2 () (test code = 1882615588) DIANE (test code = DIANE) Association of Glomerular Filtration Rate (GFR) and Staging of Kidney Disease* + --+ --+ ------+| GFR (mL/min/1.73 m2) ?| With Kidney Damage ?| ?Without Kidney Damage+ --------+ --------+ +| ?>90 ?| ?Stage one ?| ? Normal ?+ ---+ ---+ -------+| ?60-89 ?| ?Stage two ?| ? Decreased GFR ? + --+ --+ ------+| ?30-59 ?| ?Stage three ?| ? Stage three ? + --+ --+ ------+| ?15-29 ?| ?Stage four ? | ? Stage four ?+ ---+ ---+ -------+| ?<15 (or dialysis) ? ?| ?Stage five ? | ? Stage five ?+ ---+ ---+ -------+ *Each stage assumes the associated GFR level has been in effect for at least three months. ?Stages 1 to 5, with or without kidney disease, indicate chronic kidney disease. Notes: Determination of stages one and two (with eGFR >59mL/min/1.73 m2) requires estimation of kidney damage for at least three months as defined by structural or functional abnormalities of the kidney, manifested by either:Pathological abnormalities or Markers of kidney damage (including abnormalities in the composition of the blood or urine or abnormalities in imaging tests). Lab Interpretation Abnormal (test code = 33435-0) [facility] WITH [id number] 11:17:00 Test Item Value Reference Range Interpretation Comments WBC (test code = See_Comment [Automated 5890-2) message] The sy stem which generated this result transmitted reference range : 4.20 - 10.70 10*3/?L. The reference range was not used to interpret this result as normal/abnormal . RBC (test code = See_Comment L [Automated 789-8) message] The sy stem which generated this result transmitted reference range : 4.26 - 5.52 10*6/?L. The reference range was not used to interpret this result as normal/abnormal . HGB (test code = 8.9 g/dL 12.2-16.4 L 718-7) HCT (test code = 27.6 % 38.4-49.3 L 4544-3) MCV (test code = 87.3 fL 81.7-95.6 787-2) MCH (test code = 28.2 pg 26.1-32.7 785-6) MCHC (test code = 32.2 g/dL 31.2-35 786-4) RDW-SD (test code = 46.5 fL 38.5-51.6 26005-7) RDW-CV (test code = 14.5 % 12.1-15.4 788-0) PLT (test code = See_Comment [Automated 777-3) message] The sy stem which generated this result transmitted reference range : 150 - 328 10*3/ ?L. The reference r batsheva was not used to interpret this result as normal/abnormal . MPV (test code = 10.2 fL 9.8-13 73115-4) NRBC/100 WBC (test See_Comment [Automat ed code = 1159286557) message] The system which generated this result transmitted reference range : 0.0 - 10.0 /100 WBCs. The refer ence range was not u sed to interpret th is result as normal/abnormal . NRBC x10^3 (test code <0.01 See_Comment [Auto mated = 8368703042) message] The s ystem which generated this result transmitted reference range : 10*3/?L. The reference range was not used to interpret this result as normal/abnormal . GRAN MAT (NEUT) % 54.6 % (test code = 770-8) IMM GRAN % (test code 0.40 % = 0361233673) LYMPH % (test code = 27.0 % 736-9) MONO % (test code = 8.3 % 5905-5) EOS % (test code = 9.3 % 713-8) BASO % (test code = 0.4 % 706-2) GRAN MAT x10^3(ANC) 3.10 10*3/uL 1.99-6.95 (test code = 4426614653) IMM GRAN x10^3 (test <0.03 0-0.06 code = 2366038188) LYMPH x10^3 (test code 1.53 10*3/uL 1.09-3.23 = 731-0) MONO x10^3 (test code 0.47 10*3/uL 0.36-1.02 = 742-7) EOS x10^3 (test code = 0.53 10*3/uL 0.06-0.53 711-2) BASO x10^3 (test code <0.03 0.01-0.09 = 704-7) Lab Interpretation Abnormal (test code = 54742-5) [facility] GLUCOSE (AUTOMATED)2020-05-31 03:18:00 Test Item Value Reference Range Interpretation Comments POCT GLU (test code = 1708083244) 80 mg/dL 70-110 Lab Interpretation (test code = Normal 20157-4) [facility] GLUCOSE (AUTOMATED)2020-05-30 23:30:00 Test Item Value Reference Range Interpretation Comments POCT GLU (test code = 2301220194) 98 mg/dL 70-110 Lab Interpretation (test code = Normal 50343-6) [facility]2020-05-30 19:00:00 Test Item Value Reference Range Interpretation Comments POCT GLU (test code = 4305091735) 153 mg/dL 70-110 H Lab Interpretation (test code = Abnormal 60762-6) [facility] GLUCOSE (AUTOMATED)2020-05-30 14:44:00 Test Item Value Reference Range Interpretation Comments POCT GLU (test code = 4530696817) 179 mg/dL 70-110 H Lab Interpretation (test code = Abnormal 44934-4) [facility] Metabolic Panel (NA, K, CL, CO2, GLUCOSE, BUN, CREATININE, CA)2020-05-30 12:44:00 Test Item Value Reference Range Interpretation Comments NA (test code = 136 mmol/L 135-145 9854015674) K (test code = 4.0 mmol/L 3.5-5 2460280588) CL (test code = 106 mmol/L 98-108 1227659168) CO2 TOTAL (test code = 25 mmol/L 23-31 4527827608) AGAP (test code = 2-16 9221237604) BUN (test code = 14 mg/dL 7-23 8613082649) GLUCOSE (test code = 179 mg/dL 70-110 H 7486626060) CREATININE (test code = 0.68 mg/dL 0.6-1.25 2718151057) CALCIUM (test code = 8.2 mg/dL 8.6-10.6 L 2233189440) eGFR Calculation mL/min/1.73m2 (Non-) (test code = 8397210744) eGFR Calculation mL/min/1.73m2 () (test code = 0219550051) DIANE (test code = DIANE) Association of Glomerular Filtration Rate (GFR) and Staging of Kidney Disease* + --+ --+ ------+| GFR (mL/min/1.73 m2) ?| With Kidney Damage ?| ?Without Kidney Damage+ --------+ --------+ +| ?>90 ?| ?Stage one ?| ? Normal ?+ ---+ ---+ -------+| ?60-89 ?| ?Stage two ?| ? Decreased GFR ? + --+ --+ ------+| ?30-59 ?| ?Stage three ?| ? Stage three ? + --+ --+ ------+| ?15-29 ?| ?Stage four ? | ? Stage four ?+ ---+ ---+ -------+| ?<15 (or dialysis) ? ?| ?Stage five ? | ? Stage five ?+ ---+ ---+ -------+ *Each stage assumes the associated GFR level has been in effect for at least three months. ?Stages 1 to 5, with or without kidney disease, indicate chronic kidney disease. Notes: Determination of stages one and two (with eGFR >59mL/min/1.73 m2) requires estimation of kidney damage for at least three months as defined by structural or functional abnormalities of the kidney, manifested by either:Pathological abnormalities or Markers of kidney damage (including abnormalities in the composition of the blood or urine or abnormalities in imaging tests). Lab Interpretation Abnormal (test code = 09801-9) [facility] with [id number] 12:29:00 Test Item Value Reference Range Interpretation Comments WBC (test code = See_Comment [Automated 3890-2) message] The sy stem which generated this result transmitted reference range : 4.20 - 10.70 10*3/?L. The reference range was not used to interpret this result as normal/abnormal . RBC (test code = See_Comment L [Automated 269-8) message] The sy stem which generated this result transmitted reference range : 4.26 - 5.52 10*6/?L. The reference range was not used to interpret this result as normal/abnormal . HGB (test code = 8.4 g/dL 12.2-16.4 L 718-7) HCT (test code = 24.7 % 38.4-49.3 L 4544-3) MCV (test code = 86.7 fL 81.7-95.6 787-2) MCH (test code = 29.5 pg 26.1-32.7 785-6) MCHC (test code = 34.0 g/dL 31.2-35 786-4) RDW-SD (test code = 45.6 fL 38.5-51.6 52191-1) RDW-CV (test code = 14.6 % 12.1-15.4 788-0) PLT (test code = See_Comment [Automated 777-3) message] The sy stem which generated this result transmitted reference range : 150 - 328 10*3/ ?L. The reference r batsheva was not used to interpret this result as normal/abnormal . MPV (test code = 10.4 fL 9.8-13 70253-3) NRBC/100 WBC (test See_Comment [Automat ed code = 2536491612) message] The system which generated this result transmitted reference range : 0.0 - 10.0 /100 WBCs. The refer ence range was not u sed to interpret th is result as normal/abnormal . NRBC x10^3 (test code <0.01 See_Comment [Auto mated = 9815217529) message] The s ystem which generated this result transmitted reference range : 10*3/?L. The reference range was not used to interpret this result as normal/abnormal . GRAN MAT (NEUT) % 71.1 % (test code = 770-8) IMM GRAN % (test code 0.40 % = 0922445208) LYMPH % (test code = 16.1 % 736-9) MONO % (test code = 6.8 % 5905-5) EOS % (test code = 5.2 % 713-8) BASO % (test code = 0.4 % 706-2) GRAN MAT x10^3(ANC) 4.93 10*3/uL 1.99-6.95 (test code = 9815373015) IMM GRAN x10^3 (test 0.03 10*3/uL 0-0.06 code = 5374127772) LYMPH x10^3 (test code 1.12 10*3/uL 1.09-3.23 = 731-0) MONO x10^3 (test code 0.47 10*3/uL 0.36-1.02 = 742-7) EOS x10^3 (test code = 0.36 10*3/uL 0.06-0.53 711-2) BASO x10^3 (test code 0.03 10*3/uL 0.01-0.09 = 704-7) Lab Interpretation Abnormal (test code = 28958-7) [facility] GLU[facility]SE (AUT[facility]ATED[facility]2020-05-30 02:46:00 Test Item Value Reference Range Interpretation Comments POCT GLU (test code = 3024031640) 174 mg/dL 70-110 H Lab Interpretation (test code = Abnormal 42860-6) [facility] GLUCOSE (AUTOMATED)2020-05-30 02:18:00 Test Item Value Reference Range Interpretation Comments POCT GLU (test code = 9281171172) 276 mg/dL 70-110 H Lab Interpretation (test code = Abnormal 03719-1) [facility] [id number] 02:13:00 Test Item Value Reference Range Interpretation Comments PROTIME PATIENT (test See_Comment [Auto mated message] code = 5964-2) The system [employer] generated this result transmitted ref erence range: 12.0 - 1 4.7 Seconds. The re ference range was not u sed to interpret this result as normal/abnor mal. INR (test code = 6301-6) Nor mal INR <1.1; Warfarin Therap eutic range 2.0 to 3. 0 or 2.5 to 3.5, dep ending upon the indica tions. Lab Interpretation (test Normal code = 16933-1) [facility] CenterL[facility] Whole [id number] 02:00:00 Test Item Value Reference Range Interpretation Comments LACTIC ACID (test code = 1.39 mmol/L 8763752151) [facility] NOW RAPID TESTING)2020-05-29 20:21:00 Test Item Value Reference Range Interpretation Comments SARS-CoV-2 Rapid ID NOW Not Detected Not Detected (test code = 95670-7) DIANE (test code = DIANE) ID NOW COVID-19 Assay is an isothermal nucleic acid amplification test intended for the qualitative detection of nucleic acid from SARS-CoV-2 viral RNA in nasopharyngeal (STRAIGHTENING MACHINE OPERATOR) specimens. It is used under Emergency Use Authorization (EUA) by FDA. The limit of detection (LOD) of the assay is 125 Genome Equivalents/mL. A positive result is indicative of the presence of SARS-CoV-2 RNA. ?Clinical correlation with patient history and other diagnostic [...] for repeat patient testing if clinically indicated. Lab Interpretation Normal (test code = 84044-6) [facility] CenterXR FOOT <3 VW [id number] 18:08:54 1. ?Lucency fifth metatarsal head suspicious for osteomyelitis. RL: 1105 HISTORY: ?osteo ? right foot COMPARISON: ?None FINDINGS: 3 views right foot. There is medial lucency fifth metatarsal head suspicious suspicious forosteomyelitis. No fr acture or foreign body demonstrated. Degenerative changes seen in thefirst MTP joint and in the talonavicular joint dorsally. [facility], Radiant Results Inft User - 05/29/2020 12:09 PM CSTHISTORY: osteo right footCOMPARISON: NoneFINDINGS:3 views right foot.There is medial lucency fifth metatarsal head suspicious suspicious forosteomyelitis.No fracture or foreign body demonstrated. Degenerative changesseen in thefirst MTP joint and in the talonavicular joint dorsally.IMPRESSION1. Lucency fifth metatarsal head suspicious for osteomyelitis.RL: [address] [facility] F[facility] 2 VW [id number] 18:07:42 Impression: Osteopenia. Left knee osteoarthritis. Osteochondroma. No acute bony abnormality identified. End of Report. RL: 5500 Ordering Physician: ROSA M GALVAN. Procedure: XR FEMUR 2 VW LEFT Comparison: None. History: osteo . Findings: Moderate osteopenia limits evaluation for bony pathology. There has been ctrupr-lam-ycgh amputation. Zlsv-jo-kubfdyiu tricompartmental left knee osteoarthritis. No fracture, dislocation, or bony erosionis seen. There is a focal bony excrescence off the lateral left femoral diaphysisappearing contiguous with the medullary cavity measuring 1.2 x 0.3 cmlikely reflecting an osteochondroma. Clinical correlation recommended. [facility], Radiant Results Inft User - 05/29/2020 12:08 PM CSTOrdering Physician: ROSA M GALVAN.Procedure: XR FEMUR 2 VW LEFTComparison: None.History: osteo . Findings:Moderate osteopenia limits evaluation for bony pathology. There has been swkvoi-qgj-lqdm amputation.Xdqp-yd-qvkmfnnv tri compartmental left knee osteoarthritis.No fracture, dislocation, or bony erosion is seen.There is a focal bony excrescence off the lateral left femoral diaphysisappearing contiguous with the medullary cavity measuring 1.2 x 0.3 cmlikely reflecting an osteochondroma. Clinical correlation recommended.IMP RESSIONImpression:Osteopenia.Left knee osteoarthritis.Osteochondroma.No acute bony abnormality identified.End of Report.RL: 5500 [facility]. METABOLIC PANEL (04252)2020-05-29 16:35:00 Test Item Value Reference Range Interpretation Comments NA (test code = 134 mmol/L 135-145 L 6288679714) K (test code = 4.3 mmol/L 3.5-5 6179451247) CL (test code = 103 mmol/L 98-108 3771114251) CO2 TOTAL (test code = 21 mmol/L 23-31 L 0352615611) AGAP (test code = 2-16 7537967861) BUN (test code = 14 mg/dL 7-23 8812476243) GLUCOSE (test code = 372 mg/dL 70-110 H 4379549627) CREATININE (test code = 0.61 mg/dL 0.6-1.25 9845047104) TOTAL BILI (test code = 0.6 mg/dL 0.1-1.6 4898432513) CALCIUM (test code = 9.1 mg/dL 8.6-10.6 1904040712) T PROTEIN (test code = 7.6 g/dL 6.3-8.2 5249238770) ALBUMIN (test code = 4.1 g/dL 3.5-5 7261746429) ALK PHOS (test code = 126 U/L 34-122 H 3624043588) ALTv (test code = 11 U/L 5-50 1742-6) AST(SGOT) (test code = 24 U/L 13-40 5827089351) eGFR Calculation mL/min/1.73m2 (Non-) (test code = 0698365643) eGFR Calculation mL/min/1.73m2 () (test code = 0339075378) DIANE (test code = DIANE) Association of Glomerular Filtration Rate (GFR) and Staging of Kidney Disease* + --+ --+ ------+| GFR (mL/min/1.73 m2) ?| With Kidney Damage ?| ?Without Kidney Damage+ --------+ --------+ +| ?>90 ?| ?Stage one ?| ? Normal ?+ ---+ ---+ -------+| ?60-89 ?| ?Stage two ?| ? Decreased GFR ? + --+ --+ ------+| ?30-59 ?| ?Stage three ?| ? Stage three ? + --+ --+ ------+| ?15-29 ?| ?Stage four ? | ? Stage four ?+ ---+ ---+ -------+| ?<15 (or dialysis) ? ?| ?Stage five ? | ? Stage five ?+ ---+ ---+ -------+ *Each stage assumes the associated GFR level has been in effect for at least three months. ?Stages 1 to 5, with or without kidney disease, indicate chronic kidney disease. Notes: Determination of stages one and two (with eGFR >59mL/min/1.73 m2) requires estimation of kidney damage for at least three months as defined by structural or functional abnormalities of the kidney, manifested by either:Pathological abnormalities or Markers of kidney damage (including abnormalities in the composition of the blood or urine or abnormalities in imaging tests). Lab Interpretation Abnormal (test code = 61944-1) [facility] WITH [id number] 16:28:00 Test Item Value Reference Range Interpretation Comments WBC (test code = See_Comment [Automated 6690-2) message] The sy stem which generated this result transmitted reference range : 4.20 - 10.70 10*3/?L. The reference range was not used to interpret this result as normal/abnormal . RBC (test code = See_Comment L [Automated 789-8) message] The sy stem which generated this result transmitted reference range : 4.26 - 5.52 10*6/?L. The reference range was not used to interpret this result as normal/abnormal . HGB (test code = 9.8 g/dL 12.2-16.4 L 718-7) HCT (test code = 29.6 % 38.4-49.3 L 4544-3) MCV (test code = 86.3 fL 81.7-95.6 787-2) MCH (test code = 28.6 pg 26.1-32.7 785-6) MCHC (test code = 33.1 g/dL 31.2-35 786-4) RDW-SD (test code = 45.1 fL 38.5-51.6 60369-4) RDW-CV (test code = 14.4 % 12.1-15.4 788-0) PLT (test code = See_Comment [Automated 777-3) message] The sy stem which generated this result transmitted reference range : 150 - 328 10*3/ ?L. The reference r batsheva was not used to interpret this result as normal/abnormal . MPV (test code = 10.9 fL 9.8-13 20809-6) NRBC/100 WBC (test See_Comment [Automat ed code = 1095773160) message] The system which generated this result transmitted reference range : 0.0 - 10.0 /100 WBCs. The refer ence range was not u sed to interpret th is result as normal/abnormal . NRBC x10^3 (test code <0.01 See_Comment [Auto mated = 5090687783) message] The s ystem which generated this result transmitted reference range : 10*3/?L. The reference range was not used to interpret this result as normal/abnormal . GRAN MAT (NEUT) % 62.2 % (test code = 770-8) IMM GRAN % (test code 0.70 % = 6819655896) LYMPH % (test code = 23.2 % 736-9) MONO % (test code = 7.4 % 5905-5) EOS % (test code = 6.0 % 713-8) BASO % (test code = 0.5 % 706-2) GRAN MAT x10^3(ANC) 4.99 10*3/uL 1.99-6.95 (test code = 4623338282) IMM GRAN x10^3 (test 0.06 10*3/uL 0-0.06 code = 3973511963) LYMPH x10^3 (test code 1.86 10*3/uL 1.09-3.23 = 731-0) MONO x10^3 (test code 0.59 10*3/uL 0.36-1.02 = 742-7) EOS x10^3 (test code = 0.48 10*3/uL 0.06-0.53 711-2) BASO x10^3 (test code 0.04 10*3/uL 0.01-0.09 = 704-7) Lab Interpretation Abnormal (test code = 70711-6) [facility] CenterLaaric Acid Whole [id number] 15:58:00 Test Item Value Reference Range Interpretation Comments LACTIC ACID (test code = 2.60 mmol/L 4078362627) [facility] GLU[facility]SE (AUTOMATED)2020-03-26 22:39:00 Test Item Value Reference Range Interpretation Comments POCT GLU (test code = 0021816123) 245 mg/dL 70-110 H Lab Interpretation (test code = Abnormal 16039-8) [facility] GLUCOSE (AUTOMATED)2020-03-26 19:02:00 Test Item Value Reference Range Interpretation Comments POCT GLU (test code = 9054435029) 158 mg/dL 70-110 H Lab Interpretation (test code = Abnormal 18088-8) [facility] [id number] 16:56:00 Test Item Value Reference Range Interpretation Comments Case Report (test code Surgical Pathology ? ? = [id number]) ?Case: [id number] ? Authorizing Provider: ?Tato Shearer MD ? Collected: ? 03/18/2020 1516 ?Ordering Location: ? ? [facility] OR ? Received: ?03/18/2020 1653 ? Department ? Pathologist: ? Salty, Des, PHD ?Specimen: ? ?LEG, LEFT, BELOW KNEE, left leg BKA ? Final Diagnosis (test d7cesUDmCDMpy5rwDMCziU code = 7638095992) FuZzEwMzNcZnRuYmpcdWMx IUohlxEqKYmzz6ExN7EpYa AwMFxhbnNpXGRlZmxhbmcx QOCyQNQ0zvZfXFBhDDgrJF NyNUldPb2bfQAfqKagZePk CFLnh0ilgnSPulkehAr1k7 juUHLiWzV4wSItUFflI0zc jzOfuGLpMPXrQUq6sNscYs NqBMGmm2Ehir7oWKOitGVp d0S4CQOGq8NwfYIdZB3iag g6bDisT10ev3L0QmjaH2yg ZWQwXGdyZWVuMFxibHVlMC E8BZLxRHS3AHnthbAcgoS2 WMdqeMHdIaP4MWc1p4wygY ybWISsCDV5y2rdITvptuQz NJ6oft6hfVy9o4ylerWwCG RiNOPqjKWNGXFvK5NhdHfj En3btQb0kWovZmfxQRD0Kd p5PA8hxf51aco9tHbkKYZn mljbScT9CMafHQIwezjmCE t0ZNkhLKYpjWAhOJJviOMm T4NdIJfySD0yksp9BuVrOR 1fypnyGAprXEVwFDA4VtMd DIZhk4AhqstdKsQxct7gsj 47QKS6d1UrhKlrSGB3AMO7 AxBzKd9usOCtKKPiWE2tKj DbvIOzQQPabt09mGnbNTpy fuFqqJ4oJtEeRLSccUFrWT PcBENhY7voLzVwrrEqU8uh J5UpHTScEWNdEALjJpPekw Aog8Gesd93MDAvdpGss8Sy bQJkqUv0i3aqKKYoTMHpzM vob5kxODG9IWPdE9M6hSLh v3beFZemADDesDF1ejDdBW RywIYkU1JlcI5pXWryOV5r twb8l7lcUdMaMT7gmvtis3 ubCXdrTUVaIYV5MiJoYYKn m9CqtvtzMaEkd4HiaXCzOG upO76xi906DPVtbwBjJ9lp bGFpblxwbGFpblxmMFxmcz IwXHFsXHBsYWluXGYwXGZz QcAvnAumuE2aEdBiEiCqLZ xwYXJcbHRycGFyXHFsXHBs YWluXGYwXGZzMjBccGxhaW 5cZjFcZnMyMCBBLiBMRUZU NUlSHamlXaKJE2reC26RGN tyXM2LKUOCWOcCDxevaXsa jK0fPfKqLcDpJCgyOU1gNI VgI2upwEKtJLZzGXJhF1ac RbKutV6mwYdhUgxyJbYsLa YyCMnrLOBfdTtcoO2uKpLz KxWsVUAuVSPmGC4vZFXPYD JPBCUrR8FKD3ZLLxWvM4bS FNQMRRSDTAekEECEK8WHQv JHI3QEABIVA43pkFubrS7r LvRzBaMwKVdaIT0uWCKkS3 jhiEZfIMIoQHXbQ0nzCeUp yC8bsZqgUsanQwYlGmPvFH xfAXKvwOahsD7sPbWxTfTl JWOiRRDvUS0zKsIBH2JYXn BXSVRIIFNFVkVSRSBNRURJ PYthYWwVWIDHAy7UGBscHW 2YBPqFNZeTSLdkO6NKGq2L SVNccGFyICAgICAgLSBOTy AFA5XTQ24XOGyMQXgZHNfU QT3NBHXKFSXtNPEtKFwpHA YyXGZzMjBcbGFuZzEwMzNc aGljaFxmMlxkYmNoXGYyXG gvL0paYeTdK3GkXTXvRxHh gOXpVFLwxyIje1MvAKApSG Z6BXjkHHpmaRqgvWCxmxiv MFxmczIwXHBsYWluXGYxXG WaWwPgBBTgYCGxGIMMG5FG YWbSVzHJMXQXTG2FPFQLNY JMRVxwYXJccGFyXHBsYWlu XGYxXGZzMjJcbGFuZzEwMz NcaGljaFxmMVxkYmNoXGYx TRyhZ0hsMaAfY9AnGDIgUb GwPAyjs6JpajvkOIEqAS7S TDVrPI88YkHiTbNjCHg6PF QlVW3vqTqzxE2tRzBcPjXb RBcqYDGehAWdNTWuzq79TZ H6OgXsr5U1VVJnMsDfZNPt XO8ppGinOLSrUU2iLUHdB3 rwaO2ymij9AxQuCLQwWpI9 OPOltqC7Pfm8MEEbLVeef9 hos9WfJ0HfnSYdsOi6q2wt CBJgLeZ3aYNmNPouH5gutr EklLQpKABvCVa0vJhgRvIj HZWxv2dftcJsNhRaFDXpMO GpOIApiCznjlf4aJ81TWAh gX9xtRPpDBgbdeXwZxO6XS nuMNCoUxA2UIUgiUHbWBJy Q6ubFULlDIeaOVAgKOxayE EgXQX5oJzno2L3qKYofOUr lRiiPcJvTtSaWCTEi5IhTE d8yHyaE8ViMLImCxA6kRBe NLGjHNstIEJoCSHxzeD7lS 14TKtdwbX9sLHpd8Nnw52q m806eP0bpVUuJNI6QFTkYD AdwWDtLBTnKUA8MRDeyZUi D2efUPAbAX6vqxjhIKznHS dtLCRxzMW7LJNmeITkW9Zt LIFcLZtwOAEtslv9EvGfKf 8mbGXcjEgiAHcfn3vmc4pf gLDcYfg0RILxGfBeXmmwVG hlu0Bxv8ogYFWfyf8zZOW1 mHFzoXoyg5O9eHBuDCBhiU NqloDjEHLzBhU8QDaqCC0l qw47LALwXBQ2zi4xdTLxkU yhooXujTEbXNgsV3OfYQXh m128NNJmY7YvRXEec1L5oc DuYfTjJSJkrAV3kqQ3VTSu SWm6sASgylN8leUutPGyN1 zspS2iKHHyZQ3cyaqkl6qj UVofMNrsUACozFF0kmM6GA QwkEQvZ1ThsN6vNGElISni YBLtvqj1NnCfWn2psQCqmA cyMFxzYmtwYWdlXHBnbmNv bnRccGduZGVjXHBsYWluXH BsYWluXGYwXGZzMjRccWxc dHkpiY7bEkAjLtUzHIdbBI 0pCDPnE6izqTMsTBSaKUQa V9bvEdGsfE9knRcjLHjyAw JcZnMyMFxwYXIgSSBoYXZl AUSojeTdoySjkWptjgN6pG T6XONpFJytFRVkDRYnuEKe ke1onWtyNKKqID5iNLOnfv QkHCmilStkTNzaYPS9NBAh bWVudHMgbWFkZSBieSByZX XrAYUqpOHgGVBpySgxj1My g3EukGW6fH6yl4jtl6FiVA DzxPP2AR03rcF9bC5bGLKm QI0fGAPdJV0nhFRcfLZvRF Fun14qpUgkezMhPVGvjsKf XHBsYWluXGYyXGZzMjhcbG FuZzEwMzNcaGljaFxmMlxk PzAyHWXwZAkdR9rzYcDxDu UgAFudPNM3rA== Clinical Information Left foot pain (test code = [M79.672] 3343387041) Gross Description (test t7ublMKaCJWsmCOiWsBcAG code = 0947731604) HsYWUbm5xxGTCzsIBnJkDb MzNcZnRuYmpcdWMxXGRlZm Jxo5sik705ePZur8lvPGUq ImM4lTIcTONmjKWrO704KH FePAyoo5zxz4HwALTvkGRh h4D7OOSJugnleLw9xKquG8 5nh7J2JiboK4fjCTYcYVQk E8XzVL8kWKAmIbz6FQX1TQ S9QPLfWWCbF8XkTZ8yBCSd pYIuYYj9i0fdzDcnSBMeMM W7s1sgLMrvgoUoJB9jcd1v bGr3w6hphxTcJUHwVRNueC VHMWXkW0QgqFlnMw5pwOk4 uVwqAqqpEFO8Ekt1YH9ptw 24lzl7sQyrKQNkudekXzA3 YIzdSPXgdthoHIu7XUgfVN YusPEiRMOqqOQaM1QxMSen RK5jejy3QbPqCD4hpjprZR whKKPyKYY3CqSbTCIvb9Qx ysseMmUaeh6bwc97LWQ3m5 FrzHrpKZP7RMF8PbTqPd7y uUPaQAYlMK7oNeCydNLiDK Jyeu02yCqlQPrvwxFsjP1i UyCpYDHkbHGxNBXjST7jaG XhELGcvQ3uzxrsLQFhPeFu mygfWWVmrTpuwhPmXv1asP ytOJR2KJfxR5aqmD5vGlQ4 FAbyG8sxnJ6gZOv0ZRdlvG G3OQKjdU7gUJ1qxfcxp7mb VAJ4ZMucUSPpqtG3wiIyNV MwoZHfO5NzcP41FwGdgIDr R2NqxK8gYDcnROVmyns5Sm PiWx3efXBaaBF6CJslPmqn YWdlXHBnbmNvbnRccGduZG VjXHBsYWluXHBsYWluXGYw JIDtXpFaoZmybUdviU2uEy PuMgOvZPhiEI4tKUJpO3sm gNCpROHbYSKbS3ezGkJmlF 9jaFxmMVxmczIwIFNwZWNp hESxXXQnsZCmwrQzTGd8ZP IkUpLka9bhmELrTQqyUDG1 hQVcRGDkKSFkYOYbBA94T4 MgbmFtZSwgVUggbnVtYmVy SYQajOZtVAUnFEB6GPEbVJ vbyyXumpHxPCKlWXY4FUxa OcDCJ3FsBPAzITCcs45afW U4joPpImCtsvOvzWE2nWQ4 QJLbvYMkxTTBB6YhTOunKV oywO4beA5zZlMxCM5yNLZo AJfnSYpvrjn6dWpxmRGouH F2iiMgk9J3ISQnj7Yxq8jc iuJdivAuk74usBQ2hYQzgH RwclUbPRE8wV0qRI8sazxy bjogMjAuMCBjbSBpbiBsZW 1sdMxcDCqsgDmzWPPqcz3k h7z7BTDmwdOiTZBlYPViXQ tuvgUvfI7iKTYtaE6pBNTj ZXMuIFRoZSBhbnRlcmlvci Aey8taNMNhp3YzqQtognSx AHWzoP8oMKu0OT5tthKuTG 2hFOBeFXYxk1kreWUoUOVe f41egVvuAHHie1Qfvtxzwx Rsz9smBPKaQWByd7F7MFMq i2Z0BZXyILFfL2Sue14yaF XqM4eiSmJTuMXrbPrsmPVt UVIawdJwiiNnZIY1kC6uPM 7qhmxydlIetzRgGA38ZAOx ROijGIhticp7uPSfysIhdS hlIGZpYnVsYXIgcmVzZWN0 jT8lBY2zoejubbYtrZUytc QpXMRxWARygFLaqj61fY5l kXWcqj2eAPPxPKL3uBKhGO ysgvUcWBR9pX4nJR1eeixt or1sNFYhekfwVXPeBZsaLM CkVSVtsASfUEleWKR1qtLs S4OeMdzcqNFfEJRst7qyCY JeOCejXqGswriuOcqhh8fg P0n2lJryESIutIS6e3OkLX IhxR7nv8r9hKRlOVIsiZRo QA9vNOTqYNTfQB7tmctkID RrxxWxy14bVvSqKTA7VEU6 u21kt82efWhwJF5gAAzrbN FjqzAksUU7TILzjUIxk5Js J4Lba5MqtLjvQGvoBn7wEG upvsQbwELsGKMrri74jf9j hJAyprruZWPot7ybBE1iDB 4fV4JhvBbqKZTdFEHoG7Cl bHkgdWxjZXJhdGVkIGFyZW HhAKZlNCbzOb4pSVOmDNM1 fGIgVJTbfWHdif2adYEgjR mgoMXpGMcweB9lYLNaCOSr ohH4zZIcqS7thPFnek5bXO KmonEyMZGnMYVlZXzdEF3e RJPuRH32KRSkZJJeBUN5VY 0sUSJhJWRhKAIdAZTjXa2x ZCXhCPAav67cwQjbJZLnn8 FcnfetlsUfz5gvVTZds8Di xYuknkYaITPzjC4iJRDeaB FyXHBhciBUaGUgdWxjZXJh kBJrPDHqLH71jI1iImzdOC XkpdMrMLotGWSkZ2Dgu54g WZF8gvMnRXDhWMhgfyOkyN VrLKMlULE2STwsf8ajgH0x tlGoQBIfLEYif7KlRaH1vD DxzFVci7s1pLN5RUhbx0cx W9UbRM8dLHB7ulHbPO01QM T2fEWbeGQvh1xyF7bnN6Hq f7XwdBPtvmFkeUOcpuQ8yU GplM4jECUziEulNyYtVBmk RP1yiTIiMi8oIC6sFVqeLX Tpo8L4uOFmLMD5xbMyCARh IIZaVQAqv3OeH2GuDNU9ch LhCOAkDHnzMYCkge68zZ1z wTMhgMBbBPJpu3Lkdt6pkE YaiK0dhFtyRTQhgi8yPAGb VXLefQLoeKcqHPIzeu34zL 1cfRMppCK4RXJub4Uemi6t sYCybK3wkJztFUUoe9Swez inviP4vSQkXPweWUS0ZBK6 BCWkhsXfjf5mjZGbcyZtMb eoKnixEYO7DY9qy8cpKD8k RANvQWMehzKwzczsbwF6iS WkWAotZK7kYNIhfeZnkYml IHBlZGlzIGFydGVyaWVzLi VErZMrnrAwLRsciL0dIYZm WtCjhBzwd3DsQZ1bIXBcRR PxSUlwsPXeU1Eni3AzpCZ5 axVtxUIkx3KsuZByQHAbpF Qva2XbnLR3vFShSWNlK9Og r83rTNCyAAXawOZwhUA5MC XitI8dTJLmVSevSSTwq1Le BKWnLYrahAKlA6F6sV4yHP 0jZRY2GhamNYGwyQYtROhz rrDplOvlbO2eKwRnBuCjHA mqWK3rWPUhD0xewDSxFSSw UQZzB8pbTuDmcE7fzDxdHM tguhNgTHWtXCEhMNM9NYIo YWluXGYxXGZzMjBcbGFuZz EwMzNcaGljaFxmMVxkYmNo XQMaJUubL5ldOgWwQnMvBK VbNtg4BSojdTLukqjdYXzj czIwXGxhbmcxMDMzXGhpY2 xyZrGbCPZvnQteTMsjy5Nn XGYxXGZzMjBcdTgyMTEgXC g2OimrgEZtgvcdAPbsskGc VRykyrumTMOyBVrsM0clVe SuQQCltRrxWFjbi6BaOGBq HXBtKdHpVP45DKFdz1PfgF pvnZVwGCLlk6O8cDQqTOO1 bmRsZSwgcmVkXHBsYWluXG YxXGZzMjBcbGFuZzEwMzNc aGljaFxmMVxkYmNoXGYxXG ooO4lsMxWvQdQrSZv9UTJm UZZaMtf9ECUuAJyqAZWdRG ZzMjBcbGFuZzEwMzNcaGlj aFxmMVxkYmNoXGYxXGxvY2 vhUzNtZwZcHPSbz9F2QYYh i3ImiSatpVLhJAAbj7Y3kU PgCBH1elLmKMwlr1Qcekjt XHBsYWluXGYxXGZzMjBcbG FuZzEwMzNcaGljaFxmMVxk YrQtGXUtQOjzY9bpEkJjOo PsDWx4FYYeQICmGgn2YCWq YWluXGYxXGZzMjBcbGFuZz EwMzNcaGljaFxmMVxkYmNo VCQyWSlzI0sqKaNoQcIoXD BwZXJvbmVhbCBhcnRlcnks ZBWqxX4qATXiAQ0zs4PsvP MgcGVkaXNccGFyXHBhciBT JGJ5tM0aKOWqPIT4PLSvii UQXIdhNJ40YTRai2Byq7yi nvXkwmRfc45dhVN3iUYwkT WkztKcWCO1vC0gFN4xztee gyorXZ4dZrWbECeokyUntb CgPI18OIFwzeNfrUQmYQHr PvHAj7A1CZVwz1Qlr4woaf Glu9W8DJKar3T2FHAwTYMw F3Jcb96qsANcS6yrMVZril BmYWNlLCByZXByZXNlbnRh pLr6NLaxYJEqEGY4UD5sms RbwgSbpYI0uQHibWjxoLSw NJUauwCvdzExFVG2dK1hFW 6vkdvrgsisrlSsdnIcRK09 DQBqkxXkeODkSLB0MtLKLF FbtZrjxtSvHNDtK0Feq59s bYKuL0qittxxNN9iNyJbVR sfPLUqKKA9UJWfy6W2bJUo ESZ6loVmFLOvNKBpwSFyo6 LgnDR9aYDjBRNyywWJTrvh VWxjZXJhdGVkLCByZXByZX UvugLuxZl4TWxpFWDeYCn3 CLLib4puBPRvZYTvEB4fC5 JvdGljIGFyZWEsIHJlcHJl k6PveID8wVRcSYAqdjYZAM bwI2NpT5LzYMLqYSDudeUl l8LslnUfLM46DYLkNG5gR2 JvdGljIGFyZWEsIHJlcHJl l0YehYM3sDJkPLBabtinJL JccGFyZFxwbGFpblxmMFxm ufI5FHKdXGnnYKPrVBYwJr BcbGFuZzEwMzNcaGljaFxm CJdaAzIxCVFgJEuaS8osJj KcUeJiXYPLh68uyTMFgAWt cmEsIFBhdGggQSBTdHVkZW 08VTLhwo5= Embedded Images (test code = [id number]) [facility]SE (AUTOMATED)2020-03-26 14:22:00 Test Item Value Reference Range Interpretation Comments POCT GLU (test code = 6140166881) 125 mg/dL 70-110 H Lab Interpretation (test code = Abnormal 86992-8) [facility]SE (AUTOMATED)2020-03-26 10:07:00 Test Item Value Reference Range Interpretation Comments POCT GLU (test code = [id number]) 160 mg/dL 70-110 H Lab Interpretation (test code = Abnormal 68478-9) [facility]UCOSE (AUTOMATED)2020-03-26 06:33:00 Test Item Value Reference Range Interpretation Comments POCT GLU (test code = [id number]) 188 mg/dL 70-110 H Lab Interpretation (test code = Abnormal 77772-7) [facility]SE (AUTOMATED)2020-03-26 06:13:00 Test Item Value Reference Range Interpretation Comments POCT GLU (test code = [id number]) 191 mg/dL 70-110 H Lab Interpretation (test code = Abnormal 22086-0) [facility]SE (AUTOMATED)2020-03-26 02:48:00 Test Item Value Reference Range Interpretation Comments POCT GLU (test code = [id number]) 229 mg/dL 70-110 H Lab Interpretation (test code = Abnormal 96534-6) [facility]SE (AUTOMATED)2020-03-25 23:58:00 Test Item Value Reference Range Interpretation Comments POCT GLU (test code = [id number]) 184 mg/dL 70-110 H Lab Interpretation (test code = Abnormal 50390-3) [facility]UCOSE (AUTOMATED)2020-03-25 21:25:00 Test Item Value Reference Range Interpretation Comments POCT GLU (test code = 8421250704) 217 mg/dL 70-110 H Lab Interpretation (test code = Abnormal 87839-9) [facility]-25 20:04:00 Test Item Value Reference Range Interpretation Comments POCT GLU (test code = 0950612051) 223 mg/dL 70-110 H Lab Interpretation (test code = Abnormal 76176-1) [facility]2020-03-25 17:28:00 Test Item Value Reference Range Interpretation Comments POCT GLU (test code = 4945152655) 222 mg/dL 70-110 H Lab Interpretation (test code = Abnormal 92211-9) [facility]SE [facility]2020-03-25 13:19:00 Test Item Value Reference Range Interpretation Comments POCT GLU (test code = 3817718034) 115 mg/dL 70-110 H Lab Interpretation (test code = Abnormal 98953-0) [facility]SE (AUTOMATED)2020-03-25 10:10:00 Test Item Value Reference Range Interpretation Comments POCT GLU (test code = 5980795833) 181 mg/dL 70-110 H Lab Interpretation (test code = Abnormal 88861-3) [facility]SE (AUTOMATED)2020-03-25 06:41:00 Test Item Value Reference Range Interpretation Comments POCT GLU (test code = 2209598286) 166 mg/dL 70-110 H Lab Interpretation (test code = Abnormal 58652-7) [facility]SE ([facility])2020-03-25 02:04:00 Test Item Value Reference Range Interpretation Comments POCT GLU (test code = 6028130491) 204 mg/dL 70-110 H Lab Interpretation (test code = Abnormal 88574-4) [facility]SE ([facility]OMATED)2020-03-24 22:45:00 Test Item Value Reference Range Interpretation Comments POCT GLU (test code = 8447321820) 192 mg/dL 70-110 H Lab Interpretation (test code = Abnormal 26090-1) [facility] [id number] 20:02:00 Test Item Value Reference Range Interpretation Comments Blood Culture-Aerobic No organisms No growth Previo us (test code = 29307-9) isolated prelim inary verified result was Culture In Progress on 03/19/2020 at 1801 CDTPreviou s preliminary verified result was No growth a t 24 hours on 03/20/2020 at 1501 CDTPreviou s preliminary verified result was No growth a t 48 hours on 03/21/2020 at 1501 CDTPreviou s preliminary verified result was No growth a t 72 hours on 03/22/2020 at 14 01 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 CULTURE [id number] 20:02:00 Test Item Value Reference Range Interpretation Comments Blood Culture-Aerobic No organisms No growth Previo us (test code = 41992-4) isolated prelim inary verified result was Culture In Progress on 03/19/2020 at 1801 CDTPreviou s preliminary verified result was No growth a t 24 hours on 03/20/2020 at 1501 CDTPreviou s preliminary verified result was No growth a t 48 hours on 03/21/2020 at 1501 CDTPreviou s preliminary verified result was No growth a t 72 hours on 03/22/2020 at 14 01 DIRECTOR OF ORTHOPEDICS Blood No organisms No growth Previous Culture-Anaerobic isolated preliminar y (test code = 08426-4) verifi ed result was Culture In Progress on 03/19/2020 at 1801 CDTPreviou s preliminary verified result was No growth a t 24 hours on 03/20/2020 at 1501 CDTPreviou s preliminary verified result was No growth a t 48 hours on 03/21/2020 at 1501 CDTPreviou s preliminary verified result was No growth a t 72 hours on 03/22/2020 at 14 01 DIRECTOR OF ORTHOPEDICS Lab Interpretation Normal (test code = 19875-3) [facility] 18:07:00 Test Item Value Reference Range Interpretation Comments POCT GLU (test code = 5197583046) 196 mg/dL 70-110 H Lab Interpretation (test code = Abnormal 64017-8) [facility] 13:28:00 Test Item Value Reference Range Interpretation Comments POCT GLU (test code = 1425690680) 180 mg/dL 70-110 H Lab Interpretation (test code = Abnormal 82441-0) [facility] WITH [id number] 10:56:00 Test Item Value Reference Range Interpretation Comments WBC (test code = See_Comment H [Automated 6690-2) message] The sy stem which generated this result transmitted reference range : 4.20 - 10.70 10*3/?L. The reference range was not used to interpret this result as normal/abnormal . RBC (test code = See_Comment L [Automated 789-8) message] The sy stem which generated this result transmitted reference range : 4.26 - 5.52 10*6/?L. The reference range was not used to interpret this result as normal/abnormal . HGB (test code = 9.9 g/dL 12.2-16.4 L 718-7) HCT (test code = 29.3 % 38.4-49.3 L 4544-3) MCV (test code = 84.2 fL 81.7-95.6 787-2) MCH (test code = 28.4 pg 26.1-32.7 785-6) MCHC (test code = 33.8 g/dL 31.2-35 786-4) RDW-SD (test code = 45.8 fL 38.5-51.6 11562-7) RDW-CV (test code = 15.5 % 12.1-15.4 H 788-0) PLT (test code = See_Comment H [Automated 777-3) message] The sy stem which generated this result transmitted reference range : 150 - 328 10*3/ ?L. The reference r batsheva was not used to interpret this result as normal/abnormal . MPV (test code = 9.3 fL 9.8-13 L 82170-3) NRBC/100 WBC (test See_Comment [Automat ed code = 6782432360) message] The system which generated this result transmitted reference range : 0.0 - 10.0 /100 WBCs. The refer ence range was not u sed to interpret th is result as normal/abnormal . NRBC x10^3 (test code <0.01 See_Comment [Auto mated = 4191769701) message] The s ystem which generated this result transmitted reference range : 10*3/?L. The reference range was not used to interpret this result as normal/abnormal . GRAN MAT (NEUT) % 72.9 % (test code = 770-8) IMM GRAN % (test code 3.40 % = 8697285644) LYMPH % (test code = 17.3 % 736-9) MONO % (test code = 4.2 % 5905-5) EOS % (test code = 1.8 % 713-8) BASO % (test code = 0.4 % 706-2) GRAN MAT x10^3(ANC) 7.89 10*3/uL 1.99-6.95 H (test code = 1701047401) IMM GRAN x10^3 (test 0.37 10*3/uL 0-0.06 H code = 4195164098) LYMPH x10^3 (test code 1.87 10*3/uL 1.09-3.23 = 731-0) MONO x10^3 (test code 0.46 10*3/uL 0.36-1.02 = 742-7) EOS x10^3 (test code = 0.20 10*3/uL 0.06-0.53 711-2) BASO x10^3 (test code 0.04 10*3/uL 0.01-0.09 = 704-7) Lab Interpretation Abnormal (test code = 28592-0) [facility]SE ([facility]2020-03-24 10:36:00 Test Item Value Reference Range Interpretation Comments POCT GLU (test code = 3140909795) 133 mg/dL 70-110 H Lab Interpretation (test code = Abnormal 21214-4) [facility]SE (AUTOMATED)2020-03-24 06:00:00 Test Item Value Reference Range Interpretation Comments POCT GLU (test code = 0226003343) 137 mg/dL 70-110 H Lab Interpretation (test code = Abnormal 24085-8) [facility]SE (AUTOMATED)2020-03-24 01:35:00 Test Item Value Reference Range Interpretation Comments POCT GLU (test code = 0496659382) 192 mg/dL 70-110 H Lab Interpretation (test code = Abnormal 79706-0) [facility]SE (AUTOMATED)2020-03-23 23:35:00 Test Item Value Reference Range Interpretation Comments POCT GLU (test code = 0288455370) 176 mg/dL 70-110 H Lab Interpretation (test code = Abnormal 69944-1) [facility]SE (AUTOMATED)2020-03-23 21:56:00 Test Item Value Reference Range Interpretation Comments POCT GLU (test code = 6535091611) 179 mg/dL 70-110 H Lab Interpretation (test code = Abnormal 29591-4) [facility]SE (AUTOMATED)2020-03-23 18:05:00 Test Item Value Reference Range Interpretation Comments POCT GLU (test code = 2479927048) 160 mg/dL 70-110 H Lab Interpretation (test code = Abnormal 47462-1) [facility] WITH [id number] 15:10:00 Test Item Value Reference Range Interpretation Comments WBC (test code = See_Comment H [Automated 6690-2) message] The sy stem which generated this result transmitted reference range : 4.20 - 10.70 10*3/?L. The reference range was not used to interpret this result as normal/abnormal . RBC (test code = See_Comment L [Automated 789-8) message] The sy stem which generated this result transmitted reference range : 4.26 - 5.52 10*6/?L. The reference range was not used to interpret this result as normal/abnormal . HGB (test code = 9.9 g/dL 12.2-16.4 L 718-7) HCT (test code = 29.6 % 38.4-49.3 L 4544-3) MCV (test code = 84.6 fL 81.7-95.6 787-2) MCH (test code = 28.3 pg 26.1-32.7 785-6) MCHC (test code = 33.4 g/dL 31.2-35 786-4) RDW-SD (test code = 46.0 fL 38.5-51.6 84593-3) RDW-CV (test code = 15.1 % 12.1-15.4 788-0) PLT (test code = See_Comment H [Automated 777-3) message] The sy stem which generated this result transmitted reference range : 150 - 328 10*3/ ?L. The reference r batsheva was not used to interpret this result as normal/abnormal . MPV (test code = 9.5 fL 9.8-13 L 34970-2) NRBC/100 WBC (test See_Comment [Automat ed code = 9056921538) message] The system which generated this result transmitted reference range : 0.0 - 10.0 /100 WBCs. The refer ence range was not u sed to interpret th is result as normal/abnormal . NRBC x10^3 (test code <0.01 See_Comment [Auto mated = 4382615414) message] The s ystem which generated this result transmitted reference range : 10*3/?L. The reference range was not used to interpret this result as normal/abnormal . GRAN MAT (NEUT) % 75.4 % (test code = 770-8) IMM GRAN % (test code 4.30 % = 5617320831) LYMPH % (test code = 13.8 % 736-9) MONO % (test code = 4.0 % 5905-5) EOS % (test code = 1.9 % 713-8) BASO % (test code = 0.6 % 706-2) GRAN MAT x10^3(ANC) 8.16 10*3/uL 1.99-6.95 H (test code = 3328060879) IMM GRAN x10^3 (test 0.47 10*3/uL 0-0.06 H code = 6423424926) LYMPH x10^3 (test code 1.49 10*3/uL 1.09-3.23 = 731-0) MONO x10^3 (test code 0.43 10*3/uL 0.36-1.02 = 742-7) EOS x10^3 (test code = 0.20 10*3/uL 0.06-0.53 711-2) BASO x10^3 (test code 0.06 10*3/uL 0.01-0.09 = 704-7) Lab Interpretation Abnormal (test code = 98299-7) [facility] 13:58:00 Test Item Value Reference Range Interpretation Comments POCT GLU (test code = 6915997807) 125 mg/dL 70-110 H Lab Interpretation (test code = Abnormal 91892-3) [facility] METABOLIC PANEL (NA, K, CL, CO2, GLUCOSE, BUN, CREATININE, CA)2020-03-23 12:18:00 Test Item Value Reference Range Interpretation Comments NA (test code = 136 mmol/L 135-145 2386886507) K (test code = 4.0 mmol/L 3.5-5 0496610196) CL (test code = 102 mmol/L 98-108 4673028922) CO2 TOTAL (test code = 29 mmol/L 23-31 4484979865) AGAP (test code = 2-16 3999387158) BUN (test code = 7 mg/dL 7-23 2999070849) GLUCOSE (test code = 134 mg/dL 70-110 H 7898359534) CREATININE (test code = 0.64 mg/dL 0.6-1.25 7317679954) CALCIUM (test code = 8.0 mg/dL 8.6-10.6 L 8932747815) eGFR Calculation mL/min/1.73m2 (Non-) (test code = 6942162541) eGFR Calculation mL/min/1.73m2 () (test code = 4735855261) DIANE (test code = DIANE) Association of Glomerular Filtration Rate (GFR) and Staging of Kidney Disease* + --+ --+ ------+| GFR (mL/min/1.73 m2) ?| With Kidney Damage ?| ?Without Kidney Damage+ --------+ --------+ +| ?>90 ?| ?Stage one ?| ? Normal ?+ ---+ ---+ -------+| ?60-89 ?| ?Stage two ?| ? Decreased GFR ? + --+ --+ ------+| ?30-59 ?| ?Stage three ?| ? Stage three ? + --+ --+ ------+| ?15-29 ?| ?Stage four ? | ? Stage four ?+ ---+ ---+ -------+| ?<15 (or dialysis) ? ?| ?Stage five ? | ? Stage five ?+ ---+ ---+ -------+ *Each stage assumes the associated GFR level has been in effect for at least three months. ?Stages 1 to 5, with or without kidney disease, indicate chronic kidney disease. Notes: Determination of stages one and two (with eGFR >59mL/min/1.73 m2) requires estimation of kidney damage for at least three months as defined by structural or functional abnormalities of the kidney, manifested by either:Pathological abnormalities or Markers of kidney damage (including abnormalities in the composition of the blood or urine or abnormalities in imaging tests). Lab Interpretation Abnormal (test code = 47260-4) [facility] 12[facility]18:00 Test Item Value Reference Range Interpretation Comments MAGNESIUM (test code = 3259468306) 1.6 mg/dL 1.7-2.4 L Lab Interpretation (test code = Abnormal 66407-0) [facility] 12:18:00 Test Item Value Reference Range Interpretation Comments PHOSPHORUS (test code = 3432378796) 4.1 mg/dL 2.5-5 Lab Interpretation (test code = Normal 05274-3) [facility] GLUCOSE (AUTOMATED)2020-03-23 09:26:00 Test Item Value Reference Range Interpretation Comments POCT GLU (test code = 137 mg/dL 70-110 H RNNoti fied Provider 4927861156) Lab Interpretation (test Abnormal code = 54420-4) [facility] GLUCOSE (AUTOMATED)2020-03-23 05:22:00 Test Item Value Reference Range Interpretation Comments POCT GLU (test code = 136 mg/dL 70-110 H RNNoti fied Provider 3795018571) Lab Interpretation (test Abnormal code = 09238-2) [facility] GLUCOSE (AUTOMATED)2020-03-23 01:18:00 Test Item Value Reference Range Interpretation Comments POCT GLU (test code = 155 mg/dL 70-110 H RNNoti fied Provider 0940138260) Lab Interpretation (test Abnormal code = 96608-2) [facility]UCOSE (AUTOMATED)2020-03-22 23:04:00 Test Item Value Reference Range Interpretation Comments POCT GLU (test code = 4665463131) 144 mg/dL 70-110 H Lab Interpretation (test code = Abnormal 22641-3) [facility]UCOSE (AUTOMATED)2020-03-22 18:59:00 Test Item Value Reference Range Interpretation Comments POCT GLU (test code = 6751712491) 155 mg/dL 70-110 H Lab Interpretation (test code = Abnormal 41348-4) [facility]SE (AUTOMATED)2020-03-22 15:36:00 Test Item Value Reference Range Interpretation Comments POCT GLU (test code = 9511126009) 121 mg/dL 70-110 H Lab Interpretation (test code = Abnormal 86640-0) [facility]SE (AUTOMATED)2020-03-22 13:31:00 Test Item Value Reference Range Interpretation Comments POCT GLU (test code = 6544345894) 112 mg/dL 70-110 H Lab Interpretation (test code = Abnormal 95293-8) [facility] (NA, K, CL, CO2, GLUCOSE, BUN, CREATININE, CA)2020-03-22 11:41:00 Test Item Value Reference Range Interpretation Comments NA (test code = 137 mmol/L 135-145 9091713413) K (test code = 4.2 mmol/L 3.5-5 7823887010) CL (test code = 105 mmol/L 98-108 3746307005) CO2 TOTAL (test code = 26 mmol/L 23-31 4808928375) AGAP (test code = 2-16 7399187927) BUN (test code = 10 mg/dL 7-23 0422925140) GLUCOSE (test code = 123 mg/dL 70-110 H 2173421210) CREATININE (test code = 0.64 mg/dL 0.6-1.25 3086531170) CALCIUM (test code = 7.7 mg/dL 8.6-10.6 L 8246663837) eGFR Calculation mL/min/1.73m2 (Non-) (test code = 2531405008) eGFR Calculation mL/min/1.73m2 () (test code = 4365378989) DIANE (test code = DIANE) Association of Glomerular Filtration Rate (GFR) and Staging of Kidney Disease* + --+ --+ ------+| GFR (mL/min/1.73 m2) ?| With Kidney Damage ?| ?Without Kidney Damage+ --------+ --------+ +| ?>90 ?| ?Stage one ?| ? Normal ?+ ---+ ---+ -------+| ?60-89 ?| ?Stage two ?| ? Decreased GFR ? + --+ --+ ------+| ?30-59 ?| ?Stage three ?| ? Stage three ? + --+ --+ ------+| ?15-29 ?| ?Stage four ? | ? Stage four ?+ ---+ ---+ -------+| ?<15 (or dialysis) ? ?| ?Stage five ? | ? Stage five ?+ ---+ ---+ -------+ *Each stage assumes the associated GFR level has been in effect for at least three months. ?Stages 1 to 5, with or without kidney disease, indicate chronic kidney disease. Notes: Determination of stages one and two (with eGFR >59mL/min/1.73 m2) requires estimation of kidney damage for at least three months as defined by structural or functional abnormalities of the kidney, manifested by either:Pathological abnormalities or Markers of kidney damage (including abnormalities in the composition of the blood or urine or abnormalities in imaging tests). Lab Interpretation Abnormal (test code = 46441-4) [facility] 11:41:00 Test Item Value Reference Range Interpretation Comments MAGNESIUM (test code = 6164667301) 1.6 mg/dL 1.7-2.4 L Lab Interpretation (test code = Abnormal 40529-6) [facility] 11:41:00 Test Item Value Reference Range Interpretation Comments PHOSPHORUS (test code = 4386987388) 4.4 mg/dL 2.5-5 Lab Interpretation (test code = Normal 06030-3) [facility] [id number] 10:35:00 Test Item Value Reference Range Interpretation Comments WBC (test code = See_Comment [Automated 6890-2) message] The sy stem which generated this result transmitted reference range : 4.20 - 10.70 10*3/?L. The reference range was not used to interpret this result as normal/abnormal . RBC (test code = See_Comment L [Automated 789-8) message] The sy stem which generated this result transmitted reference range : 4.26 - 5.52 10*6/?L. The reference range was not used to interpret this result as normal/abnormal . HGB (test code = 9.6 g/dL 12.2-16.4 L 718-7) HCT (test code = 28.6 % 38.4-49.3 L 4544-3) MCV (test code = 85.6 fL 81.7-95.6 787-2) MCH (test code = 28.7 pg 26.1-32.7 785-6) MCHC (test code = 33.6 g/dL 31.2-35 786-4) RDW-SD (test code = 47.8 fL 38.5-51.6 31544-2) RDW-CV (test code = 15.6 % 12.1-15.4 H 788-0) PLT (test code = See_Comment H [Automated 777-3) message] The sy stem which generated this result transmitted reference range : 150 - 328 10*3/ ?L. The reference r batsheva was not used to interpret this result as normal/abnormal . MPV (test code = 9.9 fL 9.8-13 50644-8) NRBC/100 WBC (test See_Comment [Automat ed code = 4398295848) message] The system which generated this result transmitted reference range : 0.0 - 10.0 /100 WBCs. The refer ence range was not u sed to interpret th is result as normal/abnormal . NRBC x10^3 (test code <0.01 See_Comment [Auto mated = 4104637438) message] The s ystem which generated this result transmitted reference range : 10*3/?L. The reference range was not used to interpret this result as normal/abnormal . GRAN MAT (NEUT) % 65.8 % (test code = 770-8) IMM GRAN % (test code 7.30 % = 6484744476) LYMPH % (test code = 19.1 % 736-9) MONO % (test code = 5.1 % 5905-5) EOS % (test code = 2.0 % 713-8) BASO % (test code = 0.7 % 706-2) GRAN MAT x10^3(ANC) 5.78 10*3/uL 1.99-6.95 (test code = 1641758293) IMM GRAN x10^3 (test 0.64 10*3/uL 0-0.06 H code = 1283797913) LYMPH x10^3 (test code 1.68 10*3/uL 1.09-3.23 = 731-0) MONO x10^3 (test code 0.45 10*3/uL 0.36-1.02 = 742-7) EOS x10^3 (test code = 0.18 10*3/uL 0.06-0.53 711-2) BASO x10^3 (test code 0.06 10*3/uL 0.01-0.09 = 704-7) Lab Interpretation Abnormal (test code = 44851-1) [facility]2020-03-22 09:23:00 Test Item Value Reference Range Interpretation Comments POCT GLU (test code = 121 mg/dL 70-110 H RNNoti fied Provider 7243216795) Lab Interpretation (test Abnormal code = 72436-6) [facility]SE (AUTOMATED)2020-03-22 04:22:00 Test Item Value Reference Range Interpretation Comments POCT GLU (test code = 158 mg/dL 70-110 H RNNoti fied Provider [id number]) Lab Interpretation (test Abnormal code = 05408-7) [facility]SE (AUTOMATED)2020-03-22 00:25:00 Test Item Value Reference Range Interpretation Comments POCT GLU (test code = 138 mg/dL 70-110 H RNNoti fied Provider 9129767610) Lab Interpretation (test Abnormal code = 11308-0) [facility]SE (AUTOMATED)2020-03-21 23:04:00 Test Item Value Reference Range Interpretation Comments POCT GLU (test code = 5193433876) 141 mg/dL 70-110 H Lab Interpretation (test code = Abnormal 05258-4) [facility])2020-03-21 18:43:00 Test Item Value Reference Range Interpretation Comments POCT GLU (test code = 5426115947) 94 mg/dL 70-110 Lab Interpretation (test code = Normal 75596-7) [facility] 13:41:00 Test Item Value Reference Range Interpretation Comments POCT GLU (test code = 4910469848) 108 mg/dL 70-110 Lab Interpretation (test code = Normal 52790-5) [facility] - Draw immediately prior to the 4TH dose, but, no more than 60 minutes before the NEXT dose. 2020-03-21 11:20:00 Test Item Value Reference Range Interpretation Comments VANCO TROUGH (test code 10.0 ug/mL 10-20 = 9220817040) DIANE (test code = DIANE) Toxic Range: ?>20 ug/mL 15-20 ug/mL is recommended for severe infection or when Vancomycin MILLICENT is greater than or equal to 2. Lab Interpretation (test Normal code = 16423-0) [facility] WITH [id number] 09:27:00 Test Item Value Reference Range Interpretation Comments WBC (test code = See_Comment H [Automated 6690-2) message] The sy stem which generated this result transmitted reference range : 4.20 - 10.70 10*3/?L. The reference range was not used to interpret this result as normal/abnormal . RBC (test code = See_Comment L [Automated 609-8) message] The sy stem which generated this result transmitted reference range : 4.26 - 5.52 10*6/?L. The reference range was not used to interpret this result as normal/abnormal . HGB (test code = 9.1 g/dL 12.2-16.4 L 718-7) HCT (test code = 26.7 % 38.4-49.3 L 4544-3) MCV (test code = 84.0 fL 81.7-95.6 787-2) MCH (test code = 28.6 pg 26.1-32.7 785-6) MCHC (test code = 34.1 g/dL 31.2-35 786-4) RDW-SD (test code = 46.7 fL 38.5-51.6 39032-3) RDW-CV (test code = 15.3 % 12.1-15.4 788-0) PLT (test code = See_Comment H [Automated 777-3) message] The sy stem which generated this result transmitted reference range : 150 - 328 10*3/ ?L. The reference r batsheva was not used to interpret this result as normal/abnormal . MPV (test code = 9.3 fL 9.8-13 L 30605-0) NRBC/100 WBC (test See_Comment [Automat ed code = 7287624630) message] The system which generated this result transmitted reference range : 0.0 - 10.0 /100 WBCs. The refer ence range was not u sed to interpret th is result as normal/abnormal . NRBC x10^3 (test code <0.01 See_Comment [Auto mated = 0024125012) message] The s ystem which generated this result transmitted reference range : 10*3/?L. The reference range was not used to interpret this result as normal/abnormal . GRAN MAT (NEUT) % 67.4 % (test code = 770-8) IMM GRAN % (test code 7.60 % = 0388984577) LYMPH % (test code = 16.5 % 736-9) MONO % (test code = 6.2 % 5905-5) EOS % (test code = 1.8 % 713-8) BASO % (test code = 0.5 % 706-2) GRAN MAT x10^3(ANC) 8.38 10*3/uL 1.99-6.95 H (test code = 7535657452) IMM GRAN x10^3 (test 0.95 10*3/uL 0-0.06 H code = 5916294511) LYMPH x10^3 (test code 2.06 10*3/uL 1.09-3.23 = 731-0) MONO x10^3 (test code 0.77 10*3/uL 0.36-1.02 = 742-7) EOS x10^3 (test code = 0.23 10*3/uL 0.06-0.53 711-2) BASO x10^3 (test code 0.06 10*3/uL 0.01-0.09 = 704-7) Lab Interpretation Abnormal (test code = 69809-2) [facility] METABOLIC PANEL (NA, K, CL, CO2, GLUCOSE, BUN, CREATININE, CA)2020-03-21 08:59:00 Test Item Value Reference Range Interpretation Comments NA (test code = 135 mmol/L 135-145 9848370348) K (test code = 4.0 mmol/L 3.5-5 1607346471) CL (test code = 109 mmol/L 98-108 H 3569832839) CO2 TOTAL (test code = 22 mmol/L 23-31 L 3034382783) AGAP (test code = 2-16 7033310154) BUN (test code = 13 mg/dL 7-23 0333943674) GLUCOSE (test code = 125 mg/dL 70-110 H 1494692665) CREATININE (test code = 0.63 mg/dL 0.6-1.25 0312980368) CALCIUM (test code = 7.7 mg/dL 8.6-10.6 L 6823850264) eGFR Calculation mL/min/1.73m2 (Non-) (test code = 4611757199) eGFR Calculation mL/min/1.73m2 () (test code = 6187982709) DIANE (test code = DIANE) Association of Glomerular Filtration Rate (GFR) and Staging of Kidney Disease* + --+ --+ ------+| GFR (mL/min/1.73 m2) ?| With Kidney Damage ?| ?Without Kidney Damage+ --------+ --------+ +| ?>90 ?| ?Stage one ?| ? Normal ?+ ---+ ---+ -------+| ?60-89 ?| ?Stage two ?| ? Decreased GFR ? + --+ --+ ------+| ?30-59 ?| ?Stage three ?| ? Stage three ? + --+ --+ ------+| ?15-29 ?| ?Stage four ? | ? Stage four ?+ ---+ ---+ -------+| ?<15 (or dialysis) ? ?| ?Stage five ? | ? Stage five ?+ ---+ ---+ -------+ *Each stage assumes the associated GFR level has been in effect for at least three months. ?Stages 1 to 5, with or without kidney disease, indicate chronic kidney disease. Notes: Determination of stages one and two (with eGFR >59mL/min/1.73 m2) requires estimation of kidney damage for at least three months as defined by structural or functional abnormalities of the kidney, manifested by either:Pathological abnormalities or Markers of kidney damage (including abnormalities in the composition of the blood or urine or abnormalities in imaging tests). Lab Interpretation Abnormal (test code = 20778-4) [facility]00 Test Item Value Reference Range Interpretation Comments MAGNESIUM (test code = 1504961441) 1.7 mg/dL 1.7-2.4 Lab Interpretation (test code = Normal 92884-9) [facility] 08[facility]59[facility]00 Test Item Value Reference Range Interpretation Comments PHOSPHORUS (test code = 4293350841) 3.5 mg/dL 2.5-5 Lab Interpretation (test code = Normal 96593-9) [facility]SE (AUTOMATED[facility]2020-03-21 08:32:00 Test Item Value Reference Range Interpretation Comments POCT GLU (test code = 123 mg/dL 70-110 H RNNoti fied Provider [id number]) Lab Interpretation (test Abnormal code = 82496-7) [facility] GLUCOSE (AUTOMATED)2020-03-21 05:20:00 Test Item Value Reference Range Interpretation Comments POCT GLU (test code = 0251051780) 136 mg/dL 70-110 H Lab Interpretation (test code = Abnormal 45515-2) [facility] GLUCOSE (AUTOMATED)2020-03-21 00:50:00 Test Item Value Reference Range Interpretation Comments POCT GLU (test code = 4182251328) 163 mg/dL 70-110 H Lab Interpretation (test code = Abnormal 17684-8) [facility] WITH [id number] 23:36:00 Test Item Value Reference Range Interpretation Comments WBC (test code = See_Comment H [Automated 6690-2) message] The system which generated this result transmit ludmila reference range : 4.20 - 10.70 10*3/?L. The reference range was not used to interpret this result as normal/abnormal . RBC (test code = See_Comment L [Automated 789-8) message] The system which generated this result transmit ludmila reference range : 4.26 - 5.52 10*6/?L. The reference range was not used to interpret this result as normal/abnormal . HGB (test code = 8.6 g/dL 12.2-16.4 L 718-7) HCT (test code = 24.9 % 38.4-49.3 L 4544-3) MCV (test code = 83.3 fL 81.7-95.6 787-2) MCH (test code = 28.8 pg 26.1-32.7 785-6) MCHC (test code = 34.5 g/dL 31.2-35 786-4) RDW-SD (test code = 46.0 fL 38.5-51.6 65700-2) RDW-CV (test code = 15.2 % 12.1-15.4 788-0) PLT (test code = See_Comment H [Automated 777-3) message] The system which generated this result transmit ludmila reference range : 150 - 328 10*3/ ?L. The reference range was not u sed to interpret th is result as normal/abnormal . MPV (test code = 9.4 fL 9.8-13 L 18701-3) NRBC/100 WBC (test See_Comment [Automat ed code = 4126715329) message] The system which generated this result transmit ludmila reference range : 0.0 - 10.0 /100 WBCs. The reference range was not used to interpret this result as normal/abnormal . NRBC x10^3 (test code <0.01 See_Comment [Auto mated = 7255471453) message] The system which generated this result transmit ludmila reference range : 10*3/?L. The reference range was not used to interpret this result as normal/abnormal . GRAN MAT (NEUT) % 74.9 % (test code = 770-8) IMM GRAN % (test code 5.60 % = 2003312734) LYMPH % (test code = 13.1 % 736-9) MONO % (test code = 5.3 % 5905-5) EOS % (test code = 0.8 % 713-8) BASO % (test code = 0.3 % 706-2) GRAN MAT x10^3(ANC) 10.84 10*3/uL 1.99-6.95 H (test code = 8463312673) IMM GRAN x10^3 (test 0.81 10*3/uL 0-0.06 H code = 5988236848) LYMPH x10^3 (test code 1.89 10*3/uL 1.09-3.23 = 731-0) MONO x10^3 (test code 0.76 10*3/uL 0.36-1.02 = 742-7) EOS x10^3 (test code = 0.11 10*3/uL 0.06-0.53 711-2) BASO x10^3 (test code 0.05 10*3/uL 0.01-0.09 = 704-7) Lab Interpretation Abnormal (test code = 92536-8) [facility] GLUCOSE (AUTOMATED)2020-03-20 21:09:00 Test Item Value Reference Range Interpretation Comments POCT GLU (test code = 7158171358) 191 mg/dL 70-110 H Lab Interpretation (test code = Abnormal 92310-2) [facility] GLUCOSE (AUTOMATED)2020-03-20 16:18:00 Test Item Value Reference Range Interpretation Comments POCT GLU (test code = 9816627716) 176 mg/dL 70-110 H Lab Interpretation (test code = Abnormal 40092-1) [facility] Culture - Peripheral # 15:39:00 Test Item Value Reference Range Interpretation Comments Blood Culture-Aerobic Culture positive. No growth AA P revious (test code = 16749-1) See Blood prelim inary Culture Workup verified resu lt for additional was Culture I n information. Progress on 03/16/2020 at 0501 CDTPreviou s preliminary verified result was No growth a t 24 hours on 03/17/2020 at 0201 CDT Blood Culture positive. No growth AA Previous Culture-Anaerobic See Blood preliminar y (test code = 76919-9) Culture Workup veri fied result for additional was Culture I n information. Progress on 03/16/2020 at 0501 CDTPreviou s preliminary verified result was No growth a t 24 hours on 03/17/2020 at 1451 CDT Lab Interpretation Abnormal (test code = 59963-0) [id number]:39:00 Test Item Value Reference Range Interpretation Comments Blood Culture Anaerococcus [place] Workup (test species morphologically code = 600-7) consistent wit h organism aboveF or susceptibility results, refer to culture # - [id number] Gram stain Isolated from This is an ronald ended (test code = anaerobic bottle report. The se results 664-3) Gram positive cocci have bee n appended to a previously preliminary mauri ified report. [facility] # [id number] 13:28:00 Test Item Value Reference Range Interpretation Comments Blood Culture-Aerobic Culture positive. No growth AA P revious (test code = 05115-3) See Blood prelim inary Culture Workup verified resu lt for additional was Culture I n information. Progress on 03/16/2020 at 1459 CDT Blood Culture positive. No growth AA Previous Culture-Anaerobic See Blood preliminar y (test code = 93113-2) Culture Workup veri fied result for additional was Culture I n information. Progress on 03/16/2020 at 1458 CDT Lab Interpretation Abnormal (test code = 84887-2) [facility] GLUCOSE (AUTOMATED)2020-03-20 12:22:00 Test Item Value Reference Range Interpretation Comments POCT GLU (test code = 8768353320) 189 mg/dL 70-110 H Lab Interpretation (test code = Abnormal 32103-5) [facility] WITH [id number] 09:52:00 Test Item Value Reference Range Interpretation Comments WBC (test code = See_Comment H [Automated 6690-2) message] The system which generated this result transmit ludmila reference range : 4.20 - 10.70 10*3/?L. The reference range was not used to interpret this result as normal/abnormal . RBC (test code = See_Comment L [Automated 789-8) message] The system which generated this result transmit ludmila reference range : 4.26 - 5.52 10*6/?L. The reference range was not used to interpret this result as normal/abnormal . HGB (test code = 8.6 g/dL 12.2-16.4 L 718-7) HCT (test code = 24.7 % 38.4-49.3 L 4544-3) MCV (test code = 83.4 fL 81.7-95.6 787-2) MCH (test code = 29.1 pg 26.1-32.7 785-6) MCHC (test code = 34.8 g/dL 31.2-35 786-4) RDW-SD (test code = 46.2 fL 38.5-51.6 48385-9) RDW-CV (test code = 15.2 % 12.1-15.4 788-0) PLT (test code = See_Comment H [Automated 777-3) message] The system which generated this result transmit ludmila reference range : 150 - 328 10*3/ ?L. The reference range was not u sed to interpret th is result as normal/abnormal . MPV (test code = 9.6 fL 9.8-13 L 01027-3) NRBC/100 WBC (test See_Comment [Automat ed code = 9526346914) message] The system which generated this result transmit ludmila reference range : 0.0 - 10.0 /100 WBCs. The reference range was not used to interpret this result as normal/abnormal . NRBC x10^3 (test code <0.01 See_Comment [Auto mated = 2368131398) message] The system which generated this result transmit ludmila reference range : 10*3/?L. The reference range was not used to interpret this result as normal/abnormal . GRAN MAT (NEUT) % 81.4 % (test code = 770-8) IMM GRAN % (test code 5.40 % = 4940679037) LYMPH % (test code = 7.7 % 736-9) MONO % (test code = 5.2 % 5905-5) EOS % (test code = 0.1 % 713-8) BASO % (test code = 0.2 % 706-2) GRAN MAT x10^3(ANC) 16.81 10*3/uL 1.99-6.95 H (test code = 1223099349) IMM GRAN x10^3 (test 1.12 10*3/uL 0-0.06 H code = 7310291330) LYMPH x10^3 (test code 1.58 10*3/uL 1.09-3.23 = 731-0) MONO x10^3 (test code 1.07 10*3/uL 0.36-1.02 H = 742-7) EOS x10^3 (test code = <0.03 0.06-0.53 L 711-2) BASO x10^3 (test code 0.05 10*3/uL 0.01-0.09 = 704-7) Lab Interpretation Abnormal (test code = 43150-7) [facility] METABOLIC PANEL (NA, K, CL, CO2, GLUCOSE, BUN, CREATININE, CA)2020-03-20 09:40:00 Test Item Value Reference Range Interpretation Comments NA (test code = 135 mmol/L 135-145 7052112579) K (test code = 4.4 mmol/L 3.5-5 5188296803) CL (test code = 112 mmol/L 98-108 H 3518835299) CO2 TOTAL (test code = 19 mmol/L 23-31 L 8666144104) AGAP (test code = 2-16 1621499819) BUN (test code = 19 mg/dL 7-23 4370491190) GLUCOSE (test code = 199 mg/dL 70-110 H 1391636571) CREATININE (test code = 0.68 mg/dL 0.6-1.25 3283673678) CALCIUM (test code = 7.6 mg/dL 8.6-10.6 L 5028452480) eGFR Calculation mL/min/1.73m2 (Non-) (test code = 6226671125) eGFR Calculation mL/min/1.73m2 () (test code = 3258954767) DIANE (test code = DIANE) Association of Glomerular Filtration Rate (GFR) and Staging of Kidney Disease* + --+ --+ ------+| GFR (mL/min/1.73 m2) ?| With Kidney Damage ?| ?Without Kidney Damage+ --------+ --------+ +| ?>90 ?| ?Stage one ?| ? Normal ?+ ---+ ---+ -------+| ?60-89 ?| ?Stage two ?| ? Decreased GFR ? + --+ --+ ------+| ?30-59 ?| ?Stage three ?| ? Stage three ? + --+ --+ ------+| ?15-29 ?| ?Stage four ? | ? Stage four ?+ ---+ ---+ -------+| ?<15 (or dialysis) ? ?| ?Stage five ? | ? Stage five ?+ ---+ ---+ -------+ *Each stage assumes the associated GFR level has been in effect for at least three months. ?Stages 1 to 5, with or without kidney disease, indicate chronic kidney disease. Notes: Determination of stages one and two (with eGFR >59mL/min/1.73 m2) requires estimation of kidney damage for at least three months as defined by structural or functional abnormalities of the kidney, manifested by either:Pathological abnormalities or Markers of kidney damage (including abnormalities in the composition of the blood or urine or abnormalities in imaging tests). Lab Interpretation Abnormal (test code = 18513-5) [facility]00 Test Item Value Reference Range Interpretation Comments MAGNESIUM (test code = 1611663275) 1.9 mg/dL 1.7-2.4 Lab Interpretation (test code = Normal 17635-0) [facility] 09:40:00 Test Item Value Reference Range Interpretation Comments PHOSPHORUS (test code = 0112548218) 3.1 mg/dL 2.5-5 Lab Interpretation (test code = Normal 89121-9) [facility] GLUCOSE (AUTOMATED)2020-03-20 08:41:00 Test Item Value Reference Range Interpretation Comments POCT GLU (test code = 206 mg/dL 70-110 H Notifi ed Provider [id number]) Lab Interpretation (test Abnormal code = 52461-0) [facility] GLUCOSE (AUTOMATED)2020-03-20 05:14:00 Test Item Value Reference Range Interpretation Comments POCT GLU (test code = 221 mg/dL 70-110 H Notifi ed Provider [id number]) Lab Interpretation (test Abnormal code = 91912-0) [facility] GLUCOSE (AUTOMATED)2020-03-20 00:40:00 Test Item Value Reference Range Interpretation Comments POCT GLU (test code = 1958400321) 244 mg/dL 70-110 H Lab Interpretation (test code = Abnormal 44961-1) [facility] GLUCOSE (AUTOMATED)2020-03-19 21:54:00 Test Item Value Reference Range Interpretation Comments POCT GLU (test code = 6796061908) 293 mg/dL 70-110 H Lab Interpretation (test code = Abnormal 85476-5) [facility] GLUCOSE (AUTOMATED)2020-03-19 16:22:00 Test Item Value Reference Range Interpretation Comments POCT GLU (test code = 4327260508) 185 mg/dL 70-110 H Lab Interpretation (test code = Abnormal 59278-8) [facility] GLUCOSE (AUTOMATED)2020-03-19 12:21:00 Test Item Value Reference Range Interpretation Comments POCT GLU (test code = 7071816979) 217 mg/dL 70-110 H Lab Interpretation (test code = Abnormal 80052-7) [facility] METABOLIC PANEL (NA, K, CL, CO2, GLUCOSE, BUN, CREATININE, CA)2020-03-19 10:23:00 Test Item Value Reference Range Interpretation Comments NA (test code = 135 mmol/L 135-145 0569862736) K (test code = 4.3 mmol/L 3.5-5 0632210202) CL (test code = 110 mmol/L 98-108 H 5274223898) CO2 TOTAL (test code = 17 mmol/L 23-31 L 8981151400) AGAP (test code = 2-16 3661587212) BUN (test code = 18 mg/dL 7-23 6538593150) GLUCOSE (test code = 216 mg/dL 70-110 H 1249159626) CREATININE (test code = 0.73 mg/dL 0.6-1.25 9768823769) CALCIUM (test code = 7.6 mg/dL 8.6-10.6 L 1796097114) eGFR Calculation mL/min/1.73m2 (Non-) (test code = 6677801611) eGFR Calculation mL/min/1.73m2 () (test code = 7378661237) DIANE (test code = DIANE) Association of Glomerular Filtration Rate (GFR) and Staging of Kidney Disease* + --+ --+ ------+| GFR (mL/min/1.73 m2) ?| With Kidney Damage ?| ?Without Kidney Damage+ --------+ --------+ +| ?>90 ?| ?Stage one ?| ? Normal ?+ ---+ ---+ -------+| ?60-89 ?| ?Stage two ?| ? Decreased GFR ? + --+ --+ ------+| ?30-59 ?| ?Stage three ?| ? Stage three ? + --+ --+ ------+| ?15-29 ?| ?Stage four ? | ? Stage four ?+ ---+ ---+ -------+| ?<15 (or dialysis) ? ?| ?Stage five ? | ? Stage five ?+ ---+ ---+ -------+ *Each stage assumes the associated GFR level has been in effect for at least three months. ?Stages 1 to 5, with or without kidney disease, indicate chronic kidney disease. Notes: Determination of stages one and two (with eGFR >59mL/min/1.73 m2) requires estimation of kidney damage for at least three months as defined by structural or functional abnormalities of the kidney, manifested by either:Pathological abnormalities or Markers of kidney damage (including abnormalities in the composition of the blood or urine or abnormalities in imaging tests). Lab Interpretation Abnormal (test code = 81601-0) [facility] 10[facility]23:00 Test Item Value Reference Range Interpretation Comments MAGNESIUM (test code = 3686219824) 1.9 mg/dL 1.7-2.4 Lab Interpretation (test code = Normal 85002-4) [facility] 10:23:00 Test Item Value Reference Range Interpretation Comments PHOSPHORUS (test code = 5109711913) 3.4 mg/dL 2.5-5 Lab Interpretation (test code = Normal 62483-2) [facility] [id number] 10:09:00 Test Item Value Reference Range Interpretation Comments WBC (test code = See_Comment H [Automated 4190-2) message] The system which generated this result transmit ludmila reference range : 4.20 - 10.70 10*3/?L. The reference range was not used to interpret this result as normal/abnormal . RBC (test code = See_Comment L [Automated 772-8) message] The system which generated this result transmit ludmila reference range : 4.26 - 5.52 10*6/?L. The reference range was not used to interpret this result as normal/abnormal . HGB (test code = 8.2 g/dL 12.2-16.4 L 718-7) HCT (test code = 23.7 % 38.4-49.3 L 4544-3) MCV (test code = 84.0 fL 81.7-95.6 787-2) MCH (test code = 29.1 pg 26.1-32.7 785-6) MCHC (test code = 34.6 g/dL 31.2-35 786-4) RDW-SD (test code = 45.6 fL 38.5-51.6 67344-6) RDW-CV (test code = 14.7 % 12.1-15.4 788-0) PLT (test code = See_Comment H [Automated 777-3) message] The system which generated this result transmit ludmila reference range : 150 - 328 10*3/ ?L. The reference range was not u sed to interpret th is result as normal/abnormal . MPV (test code = 9.6 fL 9.8-13 L 80312-2) NRBC/100 WBC (test See_Comment [Automat ed code = 1681827204) message] The system which generated this result transmit ludmila reference range : 0.0 - 10.0 /100 WBCs. The reference range was not used to interpret this result as normal/abnormal . NRBC x10^3 (test code <0.01 See_Comment [Auto mated = 9369862214) message] The system which generated this result transmit ludmila reference range : 10*3/?L. The reference range was not used to interpret this result as normal/abnormal . GRAN MAT (NEUT) % 81.2 % (test code = 770-8) IMM GRAN % (test code 8.20 % = 2340202775) LYMPH % (test code = 7.7 % 736-9) MONO % (test code = 2.7 % 5905-5) EOS % (test code = 0.0 % 713-8) BASO % (test code = 0.2 % 706-2) GRAN MAT x10^3(ANC) 10.61 10*3/uL 1.99-6.95 H (test code = 1477069921) IMM GRAN x10^3 (test 1.07 10*3/uL 0-0.06 H code = 3663824579) LYMPH x10^3 (test code 1.00 10*3/uL 1.09-3.23 L = 731-0) MONO x10^3 (test code 0.35 10*3/uL 0.36-1.02 L = 742-7) EOS x10^3 (test code = <0.03 0.06-0.53 L 711-2) BASO x10^3 (test code <0.03 0.01-0.09 = 704-7) CIRILO CELLS (test code 2+ See_Comment A [Auto mated = 7821-9) message] The system which generated this result transmit ludmila reference range : (none). The reference range was not used to interpret this result as normal/abnormal . BANDS (test code = Increased A 6793122955) Lab Interpretation Abnormal (test code = 44023-4) [facility] GLUCOSE (AUTOMATED)2020-03-19 09:04:00 Test Item Value Reference Range Interpretation Comments POCT GLU (test code = 241 mg/dL 70-110 H Notifi ed Provider [id number]) Lab Interpretation (test Abnormal code = 33423-0) [facility] GLUCOSE (AUTOMATED)2020-03-19 04:36:00 Test Item Value Reference Range Interpretation Comments POCT GLU (test code = 228 mg/dL 70-110 H Notifi ed Provider [id number]) Lab Interpretation (test Abnormal code = 06691-7) [facility] GLUCOSE (AUTOMATED)2020-03-19 02:11:00 Test Item Value Reference Range Interpretation Comments POCT GLU (test code = 3963608805) 231 mg/dL 70-110 H Lab Interpretation (test code = Abnormal 74311-4) [facility] GLUCOSE (AUTOMATED)2020-03-18 23:05:00 Test Item Value Reference Range Interpretation Comments POCT GLU (test code = 3718180574) 222 mg/dL 70-110 H Lab Interpretation (test code = Abnormal 88280-0) [facility] Center[facility] PATH[facility]ENS DNA [id number] 22:58:00 Test Item Value Reference Range Interpretation Comments Gram Positive Blood No organisms included in Pathogens by DNA the Blood DNA Probe test Comment-Anaerobic panel were detected. (test code = Further identification [id number]) workup to be performed by culture testing methods. [facility] METABOLIC PANEL (NA, K, CL, CO2, GLUCOSE, BUN, CREATININE, CA)2020-03-18 22:17:00 Test Item Value Reference Range Interpretation Comments NA (test code = 133 mmol/L 135-145 L 3076782601) K (test code = 4.5 mmol/L 3.5-5 5748262192) CL (test code = 108 mmol/L 98-108 5447316262) CO2 TOTAL (test code = 16 mmol/L 23-31 L 9231087446) AGAP (test code = 2-16 8225000912) BUN (test code = 15 mg/dL 7-23 7943361207) GLUCOSE (test code = 175 mg/dL 70-110 H 5972820692) CREATININE (test code = 0.91 mg/dL 0.6-1.25 2730861067) CALCIUM (test code = 7.7 mg/dL 8.6-10.6 L 6355405937) eGFR Calculation mL/min/1.73m2 (Non-) (test code = 2718331641) eGFR Calculation mL/min/1.73m2 () (test code = 5745015410) DIANE (test code = DIANE) Association of Glomerular Filtration Rate (GFR) and Staging of Kidney Disease* + --+ --+ ------+| GFR (mL/min/1.73 m2) ?| With Kidney Damage ?| ?Without Kidney Damage+ --------+ --------+ +| ?>90 ?| ?Stage one ?| ? Normal ?+ ---+ ---+ -------+| ?60-89 ?| ?Stage two ?| ? Decreased GFR ? + --+ --+ ------+| ?30-59 ?| ?Stage three ?| ? Stage three ? + --+ --+ ------+| ?15-29 ?| ?Stage four ? | ? Stage four ?+ ---+ ---+ -------+| ?<15 (or dialysis) ? ?| ?Stage five ? | ? Stage five ?+ ---+ ---+ -------+ *Each stage assumes the associated GFR level has been in effect for at least three months. ?Stages 1 to 5, with or without kidney disease, indicate chronic kidney disease. Notes: Determination of stages one and two (with eGFR >59mL/min/1.73 m2) requires estimation of kidney damage for at least three months as defined by structural or functional abnormalities of the kidney, manifested by either:Pathological abnormalities or Markers of kidney damage (including abnormalities in the composition of the blood or urine or abnormalities in imaging tests). Lab Interpretation Abnormal (test code = 75163-0) [facility] 22:17:00 Test Item Value Reference Range Interpretation Comments MAGNESIUM (test code = 4571231660) 1.8 mg/dL 1.7-2.4 Lab Interpretation (test code = Normal 54449-6) [facility] 22:17:00 Test Item Value Reference Range Interpretation Comments PHOSPHORUS (test code = 5893165383) 4.3 mg/dL 2.5-5 Lab Interpretation (test code = Normal 06690-5) [facility] [id number] 22:09:00 Test Item Value Reference Range Interpretation Comments WBC (test code = 6690-2) See_Comment H [A utomated message] The system [employer] generated this result transmit ludmila reference range : 4.20 - 10.70 10*3/?L. The reference range was not used to interpret this result as normal/abnormal . RBC (test code = 789-8) See_Comment L [Au tomated message] The system [employer] generated this result transmit ludmila reference range : 4.26 - 5.52 10* 6/?L. The reference r batsheva was not used to interpret this result as normal/abnormal . HGB (test code = 718-7) 8.7 g/dL 12.2-16.4 L HCT (test code = 4544-3) 25.8 % 38.4-49.3 L MCH (test code = 785-6) 29.2 pg 26.1-32.7 MCV (test code = 787-2) 86.6 fL 81.7-95.6 MCHC (test code = 786-4) 33.7 g/dL 31.2-35 PLT (test code = 777-3) See_Comment H [Au tomated message] The system [employer] generated this result transmit ludmila reference range : 150 - 328 10*3/?L. The reference range was not used to interpret this result as normal/abnormal . MPV (test code = 9.7 fL 9.8-13 L 50833-1) RDW-CV (test code = 14.8 % 12.1-15.4 788-0) RDW-SD (test code = 47.0 fL 38.5-51.6 61504-3) NRBC x10^3 (test code = <0.01 See_Comment [Au tomated message] 9034814288) The system [employer] generated this result transmit ludmila reference range : 10*3/?L. The reference range was not used to interpret this result as normal/abnormal . NRBC/100 WBC (test code See_Comment [Au tomated message] = 3351661417) The system [employer] generated this result transmit ludmila reference range : 0.0 - 10.0 /100 WBC s. The reference r batsheva was not used to interpret this result as normal/abnormal . IPF % (test code = 8137779870) Lab Interpretation (test Abnormal code = 09394-8) [facility] Packed RBC (in units), 2 Units 2020-03-18 19:52:03 Test Item Value Reference Range Interpretation Comments Cross Match Result Compatible (test code = 4409) ISBT Blood Type Code (test code = 395416) Unit Blood Type (test O Pos code = 4410) Unit Number (test [id number] code = 4411) Blood Expiration Date & Time (test code = 171522) Status Information Issued (test code = 4412) Product Red Blood Cells Identification (test code = 4413) Product Code (test L3628A74 Performed at [facility] code = 4414) Laboratory Services - [facility] Blood [address] [place] [address]Hikb Free: [phone] A No. [id number] [facility] CenterNerve [id number] 18:54:54Travis Matias MD ? ? 03/19/2020 11:32 AM Nerve Block Procedure: Femoral Nerve Block and Other Peripheral Nerve Laterality: LeftSurgical Anesthesia: no Start Time: 03/18/2020 1:30 PMEnd Time: 03/18/2020 1:55 PMPost Op Pain Management requested by surgeon per surgical: OR PostingAnesthesiologist: Travis Matias MDResident/HAND CROWN POUNCER: Cade Pereyra MDPerformed by: resident/CRNAPreanesthetic timeout completed prior to procedure: patient identified,IV checked, site marked, risks and benefits discussed, surgical consent, monitors and equipment checked, pre-op evaluation, timeout performedPatient position:Supine.Sterile Prep/Drape: YesMonitoring: continuous pulse ox, blood pressure and ECGInjection Technique: single-shotNeedle Type: StimuplexNeedle Gauge: 22 GNeedle Length: 3.5Number of Attempts: 1Technique: Ultrasound guided, Negative aspiration and Intermittent aspiration during injectionSensory Effect: AdequateEvents: Negative Aspiration, No paresthesia on incremental injection, No symptoms of intraneural or IV injection, Local anesthetic solution visualized around nerve and Patient tolerated procedure well Medications Given: Regional:Bupiv 0.25% 55 mLEPI 1:200K Additional Notes:Left Fem/pop nerve block Femoral nerve and sciatic nerve via pop approach usg [facility]2020-03-18 16:50:00 Test Item Value Reference Range Interpretation Comments POCT GLU (test code = 3360761372) 154 mg/dL 70-110 H Lab Interpretation (test code = Abnormal 57689-8) [facility] WITH [id number] 15:14:00 Test Item Value Reference Range Interpretation Comments WBC (test code = See_Comment H [Automated 6690-2) message] The system which generated this result transmit ludmila reference range : 4.20 - 10.70 10*3/?L. The reference range was not used to interpret this result as normal/abnormal . RBC (test code = See_Comment L [Automated 789-8) message] The system which generated this result transmit ludmila reference range : 4.26 - 5.52 10*6/?L. The reference range was not used to interpret this result as normal/abnormal . HGB (test code = 7.8 g/dL 12.2-16.4 L 718-7) HCT (test code = 23.0 % 38.4-49.3 L 4544-3) MCV (test code = 83.9 fL 81.7-95.6 787-2) MCH (test code = 28.5 pg 26.1-32.7 785-6) MCHC (test code = 33.9 g/dL 31.2-35 786-4) RDW-SD (test code = 46.5 fL 38.5-51.6 55143-6) RDW-CV (test code = 15.2 % 12.1-15.4 788-0) PLT (test code = See_Comment H [Automated 777-3) message] The system which generated this result transmit ludmila reference range : 150 - 328 10*3/ ?L. The reference range was not u sed to interpret th is result as normal/abnormal . MPV (test code = 9.6 fL 9.8-13 L 78523-3) NRBC/100 WBC (test See_Comment [Automat ed code = 1534271219) message] The system which generated this result transmit ludmila reference range : 0.0 - 10.0 /100 WBCs. The reference range was not used to interpret this result as normal/abnormal . NRBC x10^3 (test code <0.01 See_Comment [Auto mated = 9764915104) message] The system which generated this result transmit ludmila reference range : 10*3/?L. The reference range was not used to interpret this result as normal/abnormal . GRAN MAT (NEUT) % 80.8 % (test code = 770-8) IMM GRAN % (test code 6.50 % = 8393061091) LYMPH % (test code = 5.9 % 736-9) MONO % (test code = 6.0 % 5905-5) EOS % (test code = 0.6 % 713-8) BASO % (test code = 0.2 % 706-2) GRAN MAT x10^3(ANC) 18.20 10*3/uL 1.99-6.95 H (test code = 9803998071) IMM GRAN x10^3 (test 1.46 10*3/uL 0-0.06 H code = 6992125757) LYMPH x10^3 (test code 1.34 10*3/uL 1.09-3.23 = 731-0) MONO x10^3 (test code 1.36 10*3/uL 0.36-1.02 H = 742-7) EOS x10^3 (test code = 0.14 10*3/uL 0.06-0.53 711-2) BASO x10^3 (test code 0.05 10*3/uL 0.01-0.09 = 704-7) DOHLE BODIES (test Present A code = 7792-5) REACT LYMPHS (test Rare code = 9644400593) Lab Interpretation Abnormal (test code = 02739-2) [facility] METABOLIC PANEL (NA, K, CL, CO2, GLUCOSE, BUN, CREATININE, CA)2020-03-18 15:06:00 Test Item Value Reference Range Interpretation Comments NA (test code = 135 mmol/L 135-145 4714637325) K (test code = 4.1 mmol/L 3.5-5 3161216318) CL (test code = 108 mmol/L 98-108 7168421459) CO2 TOTAL (test code = 18 mmol/L 23-31 L 4816752010) AGAP (test code = 2-16 0651027908) BUN (test code = 16 mg/dL 7-23 8686543521) GLUCOSE (test code = 150 mg/dL 70-110 H 8082958504) CREATININE (test code = 0.86 mg/dL 0.6-1.25 3576824898) CALCIUM (test code = 7.6 mg/dL 8.6-10.6 L 8466703789) eGFR Calculation mL/min/1.73m2 (Non-) (test code = 5067016151) eGFR Calculation mL/min/1.73m2 () (test code = 0009300307) DIANE (test code = DIANE) Association of Glomerular Filtration Rate (GFR) and Staging of Kidney Disease* + --+ --+ ------+| GFR (mL/min/1.73 m2) ?| With Kidney Damage ?| ?Without Kidney Damage+ --------+ --------+ +| ?>90 ?| ?Stage one ?| ? Normal ?+ ---+ ---+ -------+| ?60-89 ?| ?Stage two ?| ? Decreased GFR ? + --+ --+ ------+| ?30-59 ?| ?Stage three ?| ? Stage three ? + --+ --+ ------+| ?15-29 ?| ?Stage four ? | ? Stage four ?+ ---+ ---+ -------+| ?<15 (or dialysis) ? ?| ?Stage five ? | ? Stage five ?+ ---+ ---+ -------+ *Each stage assumes the associated GFR level has been in effect for at least three months. ?Stages 1 to 5, with or without kidney disease, indicate chronic kidney disease. Notes: Determination of stages one and two (with eGFR >59mL/min/1.73 m2) requires estimation of kidney damage for at least three months as defined by structural or functional abnormalities of the kidney, manifested by either:Pathological abnormalities or Markers of kidney damage (including abnormalities in the composition of the blood or urine or abnormalities in imaging tests). Lab Interpretation Abnormal (test code = 15441-5) [facility]2020[facility] 15:06:00 Test Item Value Reference Range Interpretation Comments MAGNESIUM (test code = 0273733806) 1.9 mg/dL 1.7-2.4 Lab Interpretation (test code = Normal 86006-1) [facility]PHOS[facility]US2020-10-28 15:06:00 Test Item Value Reference Range Interpretation Comments PHOSPHORUS (test code = 5841384556) 3.1 mg/dL 2.5-5 Lab Interpretation (test code = Normal 75954-4) [facility]2020-03-18 12:49:00 Test Item Value Reference Range Interpretation Comments POCT GLU (test code = 0172802240) 170 mg/dL 70-110 H Lab Interpretation (test code = Abnormal 33929-9) [facility]SE (AUT[facility]2020-03-18 08:54:00 Test Item Value Reference Range Interpretation Comments POCT GLU (test code = 183 mg/dL 70-110 H Notifi ed Provider [id number]) Lab Interpretation (test Abnormal code = 68410-1) [facility] GLUCOSE (AUTOMATED)2020-03-18 05:12:00 Test Item Value Reference Range Interpretation Comments POCT GLU (test code = 189 mg/dL 70-110 H Notifi ed Provider [id number]) Lab Interpretation (test Abnormal code = 32390-4) [facility] CenterType [facility] Screen - ONCE [id number] 04:11:19 Test Item Value Reference Range Interpretation Comments ABO & RH (test code O POSITIVE Performe d at [facility] = 20) Laboratory Serv [facility] [address]Izwp Free: [phone] A No. [id number] IAT (test code = Negative Performed a t [facility] 1185) Laboratory Serv [facility] [facility] [address] [address]Kilp Free: [phone] A No. [id number] [facility]SE (AUTOMATED)2020-03-18 03:20:00 Test Item Value Reference Range Interpretation Comments POCT GLU (test code = 1912808090) 169 mg/dL 70-110 H Lab Interpretation (test code = Abnormal 95268-2) [facility]SE (AUT[facility])2020-03-18 01:48:00 Test Item Value Reference Range Interpretation Comments POCT GLU (test code = 5244037432) 170 mg/dL 70-110 H Lab Interpretation (test code = Abnormal 48627-1) [facility]SE (AUT[facility])2020-03-17 17:13:00 Test Item Value Reference Range Interpretation Comments POCT GLU (test code = 148 mg/dL 70-110 H Notifi ed Provider [id number]) Lab Interpretation (test Abnormal code = 88536-3) [facility] GLUCOSE (AUT[facility]ATED)2020-03-17 13:13:00 Test Item Value Reference Range Interpretation Comments POCT GLU (test code = 167 mg/dL 70-110 H Notifi ed Provider [id number]) Lab Interpretation (test Abnormal code = 03608-4) [facility] CenterVanprimary children's hospitalycin Trough Level - Draw within 30 minutes prior to 4TH dose.2020-03-17 10:44:00 Test Item Value Reference Range Interpretation Comments VANCO TROUGH (test code 5.0 ug/mL 10-20 L = 9599704661) DIANE (test code = DIANE) Toxic Range: ?>20 ug/mL 15-20 ug/mL is recommended for severe infection or when Vancomycin MILLICENT is greater than or equal to 2. Lab Interpretation (test Abnormal code = 13276-7) [facility] with [id number] 10:21:00 Test Item Value Reference Range Interpretation Comments WBC (test code = See_Comment H [Automated 6690-2) message] The system which generated this result transmit ludmila reference range : 4.20 - 10.70 10*3/?L. The reference range was not used to interpret this result as normal/abnormal . RBC (test code = See_Comment L [Automated 789-8) message] The system which generated this result transmit ludmila reference range : 4.26 - 5.52 10*6/?L. The reference range was not used to interpret this result as normal/abnormal . HGB (test code = 8.0 g/dL 12.2-16.4 L 718-7) HCT (test code = 24.1 % 38.4-49.3 L 4544-3) MCV (test code = 84.3 fL 81.7-95.6 787-2) MCH (test code = 28.0 pg 26.1-32.7 785-6) MCHC (test code = 33.2 g/dL 31.2-35 786-4) RDW-SD (test code = 43.5 fL 38.5-51.6 48731-8) RDW-CV (test code = 14.1 % 12.1-15.4 788-0) PLT (test code = See_Comment H [Automated 777-3) message] The system which generated this result transmit ludmila reference range : 150 - 328 10*3/ ?L. The reference range was not u sed to interpret th is result as normal/abnormal . MPV (test code = 10.3 fL 9.8-13 40404-1) NRBC/100 WBC (test See_Comment [Automat ed code = 9261493754) message] The system which generated this result transmit ludmila reference range : 0.0 - 10.0 /100 WBCs. The reference range was not used to interpret this result as normal/abnormal . NRBC x10^3 (test code <0.01 See_Comment [Auto mated = 1248223074) message] The system which generated this result transmit ludmila reference range : 10*3/?L. The reference range was not used to interpret this result as normal/abnormal . SEG % (test code = 65 % 33-76 69225-3) BAND % (test code = 29 % 0-1 H 97561-4) MYELO % (test code = 2 % See_Comment H [Autom ated 27659-2) message] The system which generated this result transmit ludmila reference range : <=0. The refere nce range was not u sed to interpret th is result as normal/abnormal . LYMPH % (test code = 4 % 14-54 L 63345-2) ANC (test code = 22.23 10*3/uL 1.99-6.95 H 3136179670) PLT ESTIMATE (test Increased Normal A code = 9317-9) Lab Interpretation Abnormal (test code = 60136-0) [facility] (NA, K, CL, CO2, GLUCOSE, BUN, CREATININE, CA)2020-03-17 09:49:00 Test Item Value Reference Range Interpretation Comments NA (test code = 134 mmol/L 135-145 L 2242238578) K (test code = 3.9 mmol/L 3.5-5 7876239786) CL (test code = 109 mmol/L 98-108 H 7293355590) CO2 TOTAL (test code = 16 mmol/L 23-31 L 0511195967) AGAP (test code = 2-16 9718056420) BUN (test code = 32 mg/dL 7-23 H 2887845142) GLUCOSE (test code = 176 mg/dL 70-110 H 6919378637) CREATININE (test code = 1.16 mg/dL 0.6-1.25 6629782626) CALCIUM (test code = 7.6 mg/dL 8.6-10.6 L 8102765474) eGFR Calculation mL/min/1.73m2 (Non-) (test code = 4478980276) eGFR Calculation mL/min/1.73m2 () (test code = 4736911451) DIANE (test code = DIANE) Association of Glomerular Filtration Rate (GFR) and Staging of Kidney Disease* + --+ --+ ------+| GFR (mL/min/1.73 m2) ?| With Kidney Damage ?| ?Without Kidney Damage+ --------+ --------+ +| ?>90 ?| ?Stage one ?| ? Normal ?+ ---+ ---+ -------+| ?60-89 ?| ?Stage two ?| ? Decreased GFR ? + --+ --+ ------+| ?30-59 ?| ?Stage three ?| ? Stage three ? + --+ --+ ------+| ?15-29 ?| ?Stage four ? | ? Stage four ?+ ---+ ---+ -------+| ?<15 (or dialysis) ? ?| ?Stage five ? | ? Stage five ?+ ---+ ---+ -------+ *Each stage assumes the associated GFR level has been in effect for at least three months. ?Stages 1 to 5, with or without kidney disease, indicate chronic kidney disease. Notes: Determination of stages one and two (with eGFR >59mL/min/1.73 m2) requires estimation of kidney damage for at least three months as defined by structural or functional abnormalities of the kidney, manifested by either:Pathological abnormalities or Markers of kidney damage (including abnormalities in the composition of the blood or urine or abnormalities in imaging tests). Lab Interpretation Abnormal (test code = 05347-5) [facility] CenterACTIV[facility] PARTIAL THRMPLAS [id number] 09:44:00 Test Item Value Reference Range Interpretation Comments APTT Patient (test See_Comment H [Automat ed code = 3173-2) message] The system which generated this result transmitted reference range : 23 - 38 Seconds . The reference range was not used to interpr et this result as normal/abnormal . DIANE (test code = DIANE) The [facility] patient population mean normal value for aPTT is 30 seconds. Lab Interpretation Abnormal (test code = 15600-8) [facility] CenterPO[facility]2020-03-17 09:14:00 Test Item Value Reference Range Interpretation Comments POCT GLU (test code = 2666477750) 179 mg/dL 70-110 H Lab Interpretation (test code = Abnormal 75483-5) [facility]2020-03-17 05:09:00 Test Item Value Reference Range Interpretation Comments POCT GLU (test code = 9603560968) 232 mg/dL 70-110 H Lab Interpretation (test code = Abnormal 29325-9) [facility] GLU[facility]SE (AUT[facility])2020-03-17 05:09:00 Test Item Value Reference Range Interpretation Comments POCT GLU (test code = 8354890784) 207 mg/dL 70-110 H Lab Interpretation (test code = Abnormal 64448-2) [facility] CenterACT[facility] THRM[facility] [id number] 04:48:00 Test Item Value Reference Range Interpretation Comments APTT Patient (test See_Comment H [Automat ed code = 3173-2) message] The system which generated this result transmitted reference range : 23 - 38 Seconds . The reference range was not used to interpr et this result as normal/abnormal . DIANE (test code = DIANE) The [facility] patient population mean normal value for aPTT is 30 seconds. Lab Interpretation Abnormal (test code = 47666-9) [facility] CenterGRAM NEGATIVE BLOOD PATHOGENS DNA [id number] 02:54:00 Test Item Value Reference Range Interpretation Comments Escherichia coli (test Positive Negative, See A code = 38852-9) Comment/Narrative DIANE (test code = DIANE) See blood culture result for additional information. ?Testing included eight identification and six resistance marker targets. Lab Interpretation Abnormal (test code = 62562-5) [facility] CenterLAB ONLY COVID [id number] 00:47:00COVID DMT InterpretationInterpretation/Recommendations:Tests (PCR) for Active Infection by COVID-19 Virus:This patient has tested negative for the COVID-19 virus more than three times with no prior history of a positive result. It is possible that at least one of these tests is a false negative, whichoccurs with nasopharyngeal samples. This occurs because the virus is predominantly in the lung and out of reach of the nasopharyngeal swab. However, based upon greater than three negative tests with noprior positive results, the patient is unlikely to have an active infection. Tests for IgM and/or IgG Antibodies to COVID-19 Virus:A. ?A test for IgM antibody to the COVID-19 [...] patient has recovered from the infection would beimportant to perform if the IgM kxdd-[id number] antibody test is positive. B. ?A test for IgG antibodies to the COVID-19 virus was not performed and is also likely to be informative. The sample for the IgG antibody test should be collected 2 or more weeks post onset of symptoms. It is the IgG antibodiesthat can confer long-term immunity to infectious agents. However, at this time, it is not known if the production of IgG antibodies indicates whether the patient is immune to future infections with theCOVID-19 virus. It is also not known how long IgG antibodies to the COVID-19 virus persist, and therefore the length of immunity to future COVID-19 infections. C. ?Although it is uncommon, some patients cannot ever mount an antibody response to infectious agents, such as COVID-19. If there are persiste ntly negative results for IgM and IgG antibodies, this may be the explanation. Disclaimer:These interpretation comments are based upon aggregate data pooled from the [facility] medical record includingboth current and prior COVID-19 related testing results for the following tests: SARS-CoV-2 PCR, SARS-CoV-2 Rapid ID NOW, CoV-2 IgM, and CoV-2 IgG. These interpretations are autopopulated into [facility] based on computerized algorithms matching an interpretation code number to the patient's set of test results. While a clinical pathologist evaluates the combinations for clinical accuracy, clinical correlation is recommended as it may not take into account very remote prior testing. Furthermore, it does not consider testing a patient may have had outside of the [facility] system. Additionally, it should be noted that the computerized algorithm treats the results for PCR testing and Rapid ID NOW testing (alsoPCR) synonymously, and thus, refers to both testing methodologies as PCR tests. Given that the sensitivity of [facility]'s Rapid ID NOW testing platform is analogous [...] be tested with alternative PCR molecular test. [facility] LABORATORY SERVICESCOVID FwzuyooEDKA-LyY-9 Rapid ID NOW (no units) ? ? Date ? Value ? 03/16/2020 ? Not Detected ? ? ? 02/03/2020 ? Not Detected ? ? ? 11/16/2019 ? Not Detected ? ? ? 09/17/2019 ? Not Detected ? [facility] LABORATORY SERVICES [facility] CenterType and Screen - ONCE [id number] 00:17:40 Test Item Value Reference Range Interpretation Comments ABO & RH (test code O Positive Performe d at [facility] = 20) Laboratory Serv [facility] Blood Bank[address] [place] [phone] Free: [phone] A No. [id number] IAT (test code = Negative Performed a t [facility] 1185) Laboratory Serv [facility] Blood Bank[address] [place] [phone] Free: [phone] A No. [id number] [facility] CenterBASIC METABOLIC PANEL (NA, K, CL, CO2, GLUCOSE, BUN, CREATININE, CA)2020-03-16 22:48:00 Test Item Value Reference Range Interpretation Comments NA (test code = 134 mmol/L 135-145 L 2579722837) K (test code = 3.5 mmol/L 3.5-5 0800916185) CL (test code = 106 mmol/L 98-108 8972377641) CO2 TOTAL (test code = 15 mmol/L 23-31 L 0265847601) AGAP (test code = 2-16 7969503914) BUN (test code = 37 mg/dL 7-23 H 5743050976) GLUCOSE (test code = 226 mg/dL 70-110 H 3074617098) CREATININE (test code = 1.37 mg/dL 0.6-1.25 H 2562260342) CALCIUM (test code = 7.4 mg/dL 8.6-10.6 L 1817713438) eGFR Calculation mL/min/1.73m2 (Non-) (test code = 8739512939) eGFR Calculation mL/min/1.73m2 () (test code = 0808035289) DIANE (test code = DIANE) Association of Glomerular Filtration Rate (GFR) and Staging of Kidney Disease* + --+ --+ ------+| GFR (mL/min/1.73 m2) ?| With Kidney Damage ?| ?Without Kidney Damage+ --------+ --------+ +| ?>90 ?| ?Stage one ?| ? Normal ?+ ---+ ---+ -------+| ?60-89 ?| ?Stage two ?| ? Decreased GFR ? + --+ --+ ------+| ?30-59 ?| ?Stage three ?| ? Stage three ? + --+ --+ ------+| ?15-29 ?| ?Stage four ? | ? Stage four ?+ ---+ ---+ -------+| ?<15 (or dialysis) ? ?| ?Stage five ? | ? Stage five ?+ ---+ ---+ -------+ *Each stage assumes the associated GFR level has been in effect for at least three months. ?Stages 1 to 5, with or without kidney disease, indicate chronic kidney disease. Notes: Determination of stages one and two (with eGFR >59mL/min/1.73 m2) requires estimation of kidney damage for at least three months as defined by structural or functional abnormalities of the kidney, manifested by either:Pathological abnormalities or Markers of kidney damage (including abnormalities in the composition of the blood or urine or abnormalities in imaging tests). Lab Interpretation Abnormal (test code = 06167-2) [facility] GLU[facility]SE (AUT[facility])2020-03-16 22:04:00 Test Item Value Reference Range Interpretation Comments POCT GLU (test code = 5293773592) 232 mg/dL 70-110 H Lab Interpretation (test code = Abnormal 41074-7) [facility] CenteraPTT (for use with Heparin Drip)2020-03-16 21:55:00 Test Item Value Reference Range Interpretation Comments APTT Patient (test See_Comment HH [Automat ed code = 3173-2) message] The system which generated this result transmitted reference range : 23 - 38 Seconds . The reference range was not used to interpr et this result as normal/abnormal . DIANE (test code = DIANE) The [facility] patient population mean normal value for aPTT is 30 seconds. Lab Interpretation Abnormal (test code = 17850-0) [facility] CenterUS RETROPERITONEAL [id number] 17:51:51 Essentially normal renal ultrasound except for right interpolar regioncyst. Partially decompressed urinary bladder with circumferentially thickenedwalls. Findings can be seen with cystitis and/or degree of chronic urinarybladder outlet obstruction. Correlate with UA. Partially visualized diffuse hepatic steatosis.ULTRASOUND RENAL INDICATION: KALYN COMPARISON: 11/17/2019. FINDINGS: Right kidney measures 12.8 x 6.7 x 5.7 cm. There is normal renal corticalechogenicity and corticomedullary differentiation.No hydronephrosis orrenal calculi. Right interpolar region cyst measuring 2.4 x 2.1 x 1.9 cm.There is qualitatively normal perfusion on color doppler interrogation. Left kidney measures 11.9 x 6.5 x 5.3 cm. There is normal renal corticalechogenicity and corticomedullary differentiation. No hydronephrosis orrenal calculi. There is qualitatively normal perfusion on color dopplerinterrogation. Partially decompressed urinary bladder is circumferentially thickened outof proportion to degree of distention. Urinary bladder wall measures 8 mmin thickness. Partially visualized liver appears diffusely steatotic. [facility], Radiant Results Inft User - 03/16/2020 12:52 PM CDTULTRASOUND RENALINDICATION: AKICOMPARISON: 11/17/2019.FINDINGS:Right kidney measures 12.8 x 6.7 x 5.7 cm. There is normal renal corticalechogenicity and corticomedullary differentiation. No hydronephrosis orrenal calculi. Right interpolar region cyst measuring 2.4 x 2.1 x 1.9 cm.There is qualitatively normal perfusion on color doppler interro gation.Left kidney measures 11.9 x 6.5 x 5.3 cm. There is normal renal corticalechogenicity and corticomedullary differentiation. No hydronephrosis orrenal calculi. There is qualitatively normal perfusion on color dopplerinterrogation.Partially decompressed urinary bladder is circumferentially thickened outof proportion to degree of distention. Urinary bladder wall measures 8 mmin thickness.Partiallyvisualized liver appears diffusely steatotic.IMPRESSIONEssentially normal renal ultrasound except for right interpolar regioncyst.Partially decompressed urinary bladder with circumferentially thickenedwalls. Findings can be seen with cystitis and/or degree of chronic urinarybladder outlet obstruction.Correlate with UA.Partially visualized diffuse hepatic steatosis.[facility] CenterPO[facility] ([facility])2020-03-16 16:55:00 Test Item Value Reference Range Interpretation Comments POCT GLU (test code = 246 mg/dL 70-110 H Notifi ed Provider [id number]) Lab Interpretation (test Abnormal code = 45712-5) [facility] CenterURINALYSIS2020-10-26 16:20:00 Test Item Value Reference Range Interpretation Comments APPEARANCE (test code = Hazy Clear A 5639524330) COLOR (test code = Yellow Yellow 3697729514) PH (test code = 4.8-8.0 5864203308) SP GRAVITY (test code = 1.003-1.030 4668984452) GLU U QUAL (test code = 150 mg/dL Normal A 0547998034) BLOOD (test code = Negative Negative 5617409161) KETONES (test code = Negative Negative 2495423442) PROTEIN (test code = 30 mg/dL Negative A 2887-8) UROBILIN (test code = Normal Normal 1539735466) BILIRUBIN (test code = Negative Negative 2766286878) NITRITE (test code = Negative Negative 7558966234) LEUK PETER (test code = Negative Negative 6197169813) RBC/HPF (test code = See_Comment H [Autom ated message] 6235341963) The system [employer] generated this result transmit ludmila reference range : 0 - 3 HPF. The refe rence range was not u sed to interpret th is result as normal/abnormal . WBC/HPF (test code = See_Comment H [Autom ated message] 1430632654) The system [employer] generated this result transmit ludmila reference range : 0 - 5 HPF. The refe rence range was not u sed to interpret th is result as normal/abnormal . BACTERIA (test code = Negative Negative 7478403196) AMORPHOUS (test code = Rare Rare HPF 6668113309) HYAL CAST (test code = See_Comment H [Aut omated message] 3429409315) The system [employer] generated this result transmit ludmila reference range : <=2 LPF. The refere nce range was not u sed to interpret th is result as normal/abnormal . Lab Interpretation (test Abnormal code = 11574-2) [facility]2020-[facility]-16 16:06:00 Test Item Value Reference Range Interpretation Comments POCT GLU (test code = 286 mg/dL 70-110 H Notifi ed Provider [id number]) Lab Interpretation (test Abnormal code = 75755-4) [facility] CenterLOW-DENSITY LIPOPROTEIN, [id number] 15:25:00 Test Item Value Reference Range Interpretation Comments dLDL Chol (test code = 99540-3) 42 mg/dL <130 Lab Interpretation (test code = Normal 64647-2) [facility] CenterURIC [id number] 15:15:00 Test Item Value Reference Range Interpretation Comments URIC ACID (test code = 6336243760) 10.1 mg/dL 3.6-8 H Lab Interpretation (test code = Abnormal 69567-2) [facility] CenterMAGNESIUM2020-10-26 15:07:00 Test Item Value Reference Range Interpretation Comments MAGNESIUM (test code = 0066026261) 2.0 mg/dL 1.7-2.4 Lab Interpretation (test code = Normal 35965-0) [facility] CenterPHOSPHORUS2020-10-26 15:07:00 Test Item Value Reference Range Interpretation Comments PHOSPHORUS (test code = 7115946978) 4.0 mg/dL 2.5-5 Lab Interpretation (test code = Normal 79291-2) [facility] CenterBASIC METABOLIC PANEL (NA, K, CL, CO2, GLUCOSE, BUN, CREATININE, CA)2020-03-16 14:51:00 Test Item Value Reference Range Interpretation Comments NA (test code = 135 mmol/L 135-145 2604434148) K (test code = 2.7 mmol/L 3.5-5 LL 7317878017) CL (test code = 107 mmol/L 98-108 1511341420) CO2 TOTAL (test code = 17 mmol/L 23-31 L 1100979308) AGAP (test code = 2-16 2327197627) BUN (test code = 39 mg/dL 7-23 H 2298761935) GLUCOSE (test code = 259 mg/dL 70-110 H 2126260285) CREATININE (test code = 1.46 mg/dL 0.6-1.25 H 5763158562) CALCIUM (test code = 7.3 mg/dL 8.6-10.6 L 5364674930) eGFR Calculation mL/min/1.73m2 (Non-) (test code = 1991953173) eGFR Calculation mL/min/1.73m2 () (test code = 0688015639) DIANE (test code = DIANE) Association of Glomerular Filtration Rate (GFR) and Staging of Kidney Disease* + --+ --+ ------+| GFR (mL/min/1.73 m2) ?| With Kidney Damage ?| ?Without Kidney Damage+ --------+ --------+ +| ?>90 ?| ?Stage one ?| ? Normal ?+ ---+ ---+ -------+| ?60-89 ?| ?Stage two ?| ? Decreased GFR ? + --+ --+ ------+| ?30-59 ?| ?Stage three ?| ? Stage three ? + --+ --+ ------+| ?15-29 ?| ?Stage four ? | ? Stage four ?+ ---+ ---+ -------+| ?<15 (or dialysis) ? ?| ?Stage five ? | ? Stage five ?+ ---+ ---+ -------+ *Each stage assumes the associated GFR level has been in effect for at least three months. ?Stages 1 to 5, with or without kidney disease, indicate chronic kidney disease. Notes: Determination of stages one and two (with eGFR >59mL/min/1.73 m2) requires estimation of kidney damage for at least three months as defined by structural or functional abnormalities of the kidney, manifested by either:Pathological abnormalities or Markers of kidney damage (including abnormalities in the composition of the blood or urine or abnormalities in imaging tests). Lab Interpretation Abnormal (test code = 39693-4) [facility] CenteraPTT2020-10-26 14:49:00 Test Item Value Reference Range Interpretation Comments APTT Patient (test See_Comment [Automat ed code = 3173-2) message] The system which generated this result transmitted reference range : 23 - 38 Seconds . The reference range was not used to interpr et this result as normal/abnormal . DIANE (test code = DIANE) The [facility] patient population mean normal value for aPTT is 30 seconds. Lab Interpretation Normal (test code = 31612-2) [facility] CenterProthrombin Time (PT) / [id number] 14:47:00 Test Item Value Reference Range Interpretation Comments PROTIME PATIENT (test See_Comment H [Auto mated message] code = 5964-2) The system wh ich generated this result transmitted ref erence range: 12.0 - 1 4.7 Seconds. The reference range was not used to int erpret this result as normal/abnormal . INR (test code = 6301-6) Nor mal INR <1.1; Warfarin Therap eutic range 2.0 to 3. 0 or 2.5 to 3.5, dep ending upon the indica tions. Lab Interpretation (test Abnormal code = 68895-7) [facility] CenterXR CHEST 1 [id number] 13:17:23 No acute cardiopulmonary process. Preliminary Report Dictated by Resident: Mango Mitchell MD., have reviewed this study and agree with theabove report.EXAM: XR CHEST 1 VW 03/16/2020 3:36 AM HISTORY: 59 years-old Male with SOB TECHNIQUE: Portable erect AP view of the chest. COMPARISON: X-ray chest 02/04/2020, CT chest angiogram 02/03/2020 FINDINGS: Lines and tubes: Dual-chamber pacemaker lead tips project over the rightatrium and right ventricle. Sternotomy wires are unchanged. Proximal leftsubclavian artery vascular stent is noted. Cholecystectomy and left upperquadrant surgical clips visualized. Cardiomediastinal: The cardiomediastinal silhouette is unchanged. Lungs and pleura: Suboptimal inspiratory volumes resulting in bronchialvascular crowding. Lungs are otherwise clear. No focal consolidation,pneumothorax. No discernible pneumothorax or pleural effusion. Musculoskeletal: No acute osseous abnormality. [facility], Radiant Results Inft User - 03/16/2020 8:18 AM CDTEXAM: XR CHEST 1 VW 03/16/2020 3:36 AMHISTORY: 59 years-old Male with SOBTECHNIQUE: Portable erect AP view of the chest. COMPARISON: X-ray chest 02/04/2020, CT chest angiogram 02/03/2020FINDINGS: Lines and tubes: Dual-chamber pacemaker lead tips project over the rightatrium and right ventricle. Sternotomy wires are unchanged. Proximal leftsubclavian artery vascular stent is noted. Cholecystectomy and left upperquadrant surgical clips visualized.Cardiomediastinal: The cardiomediastinal silhouette is unchanged.Lungs and pleura: Suboptimal inspiratory volumes resulting in bronchialvascular crowding. Lungs are otherwise clear. No focal consolidation,pneumothorax. No discernible pneumothorax or pleural effusion.Musc uloskeletal: No acute osseous abnormality.IMPRESSIONNo acute cardiopulmonary process.Preliminary Report Dictated by Resident: Nataly Ng, Mango Thomas MD., have reviewed this study and agree with theabove report. [facility] CenterCT FOOT LEFT WO [id number] 12:15:57 Findings consistent with calcaneal osteomyelitis with extensive calcanealintramedullary gas. Skin defect in the medial heel with extensive softtissue swelling and gas, including deep to the plantar fascia. Intra- articular gas in the subtalar joint may represent septic arthritis. Preliminary Report Dictated by Resident: Lexi Gibson MD., have reviewed this study and agree with the abovereport.CT FOOT LEFT WO CONTRAST HISTORY: 59 years-old; Male; Osteomyelitis suspected, foot swelling,diabetic COMPARISON: Left foot radiographs 03/16/2020 TECHNIQUE: CT imaging of the left foot tissues and bones is obtained in 3.0mm intervals without IV contrast. Sagittal and coronal reconstructions aregenerated and reviewed. BONE: Bone erosions and periosteal reaction are seen along the posteriorcalcaneus. Extensive intramedullary gas is noted throughout the calcaneus. There is no acute fracture or dislocation. Well-corticated osseous fragmentdistal to the medial malleolus (2:27) is likely due to a remote avulsionfracture. SOFT TISSUES: Significant soft tissue swelling and extensive subcutaneous gas are notedalong the plantar aspect of the midfoot and hindfoot with a skin defect inthe medial aspect of the heel. Soft tissue gas is also noted deep to theplantar fascia as well as the middlearticular surface of the calcaneus.Vascular calcifications are seen. [facility], Radiant Results Inft User- 03/16/2020 7:17 AM CDTCT FOOT LEFT WO CONTRASTHISTORY: 59 years-old; Male; Osteomyelitis suspected, foot swelling,diabetic COMPARISON: Left foot radiographs 03/16/2020TECHNIQUE: CT imaging of the left foot tissues and bones is obtained in 3.0mm intervals without IV contrast. Sagittal and coronal rec onstructions aregenerated and reviewed.BONE:Bone erosions and periosteal reaction are seen along theposteriorcalcaneus. Extensive intramedullary gas is noted throughout the calcaneus.There is no acutefracture or dislocation. Well- corticated osseous fragmentdistal to the medial malleolus (2:27) is likely due to a remote avulsionfracture.SOFT TISSUES:Significant soft tissue swelling and extensive subcutaneous gas are notedalong the plantar aspect of the midfoot and hindfoot with a skin defect inthe medial aspect of the heel. Soft tissue gas is also noted deep to theplantar fascia as well as the middle articular surface of the calcaneus.Vascular calcifications are seen.IMPRESSIONFindings consistentwith calcaneal osteomyelitis with extensive calcanealintramedullary gas. Skin defect in the medial heel with extensive softtissue swelling and gas, including deep to the plantar fascia.Intra-articular gas in the subtalar joint may represent septic arthritis.Preliminary Report Dictated by Resident: Lexi Feldman MD., have reviewed this study and agree with the abovereport. [facility] CenterXR FOOT <3 VW [id number] 11:29:14 Skin defect and subcutaneous gas in the heel with suspected osteomyelitisof the posterior calcaneus. Moderate midfoot osteoarthrosis. Preliminary Report Dictated by Resident: Lexi Gibson MD., have reviewed this study and agree with the abovereport.XR FOOT <3 VW LEFT HISTORY: 59 years-old Male; osteo / heel COMPARISON: Left foot radiographs 02/04/2020 FINDINGS: Radiographsof the left foot demonstrate soft tissue swelling andsubcutaneous gas in the plantar aspect of the hindfoot with a skin defectidentified in the heel. Focal osteopenia and bone erosions are noted alongthe posterior aspect of the calcaneus. There is no acute fracture ordislocation. Prominent talonavicular dorsal osteophytosis and subchondralcystic changes are noted. Diabetes type vascular calcifications are noted. [facility], Radiant Results Inft User - 03/16/2020 6:30 AM CDTXR FOOT <3 VW LEFTHISTORY: 59 years-old Male; osteo / heel COMPARISON: Left foot radiographs 02/04/2020FINDINGS:Radiographs of theleft foot demonstrate soft tissue swelling andsubcutaneous gas in the plantar aspect of the hindfootwith a skin defectidentified in the heel. Focal osteopenia and bone erosions are noted alongthe posterior aspect of the calcaneus. There is no acute fracture ordislocation. Prominent talonavicular dorsal osteophytosis and subchondralcystic changes are noted. Diabetes type vascular calcifications are noted.IMPRESSIONSkin defect and subcutaneous gas in the heel with suspected osteomyelitisof the posterior calcaneus.Moderate midfoot osteoarthrosis.Preliminary Report Dictated by Resident: Sergio Kenyon, Lexi Palacio MD., have reviewed this study and agree with the abovereport.[facility] CenterFERRITIN [id number] 10:07:00 Test Item Value Reference Range Interpretation Comments FERRITIN (test code = 255.0 ng/mL 18-464 4282757361) DIANE (test code = DIANE) Biotin has been reported to cause a negative bias, interpret results relative to patient's use of biotin. Lab Interpretation (test Normal code = 96358-6) [facility] CenterTROPONIN [id number] 09:44:00 Test Item Value Reference Range Interpretation Comments TROPONIN I (test 0.020 ng/mL See_Comment [Automated code = 3069893064) message] The system which generated this result transmitted reference range : <=0.034. The reference range was not used to interpret this result as normal/abnormal . DIANE (test code = Equal or Less than DIANE) 0.034 ng/ml---Normal ?Note: Cardiac troponin begins to rise 3-4 hours after the onset of ischemia. Repeat in 4-6 hours if the sample was drawn within 3-4 hours of the onset of the symptom and found normal. Between 0.035 and 0.120 ng/mL--- Borderline. Questionable myocardial injury or necrosis ? ?Note: Serial measurement may be necessary to confirm or exclude the diagnosis of myocardial injury or necrosis; Clinical correlation (symptoms, EKGs, imaging studies, and others) required; Repeat in 4-6 hours if clinically indicated. ? Equal or Higher than 0.121 ng/mL---Abnormal. Myocardial Injury or Necrosis Likely ? Biotin has been reported to cause a negative bias, interpret results relative to patient's use of biotin. ? Lab Interpretation Normal (test code = 60215-0) [facility] CenterN-TERMINAL [id number] 09:41:00 Test Item Value Reference Range Interpretation Comments NT-proBNP (test code 2680 pg/mL See_Comment H [Autom ated = 1404651646) message] The system which generated this result transmitted reference range : <=125. The reference range was not used to interpret this result as normal/abnormal . DIANE (test code = DIANE) Biotin has been reported to cause a negative bias, interpret results relative to patient's use of biotin. Lab Interpretation Abnormal (test code = 63899-1) [facility] CenterIRON2020-10-26 09:31:00 Test Item Value Reference Range Interpretation Comments IRON (test code = 7545032538) 11 ug/dL 50-160 L Lab Interpretation (test code = Abnormal 81099-6) [facility] CenterTHYROID STIMULATING [id number] 09:05:00 Test Item Value Reference Range Interpretation Comments TSH (test code = See_Comment [Automated message] 7209600322) The system [employer] generated this result transmitted ref erence range: 0.45 - 4 .70 mIU/L. The refe rence range was not u sed to interpret this result as normal/abnor mal. Lab Interpretation (test Normal code = 60394-6) [facility] CenterLactic Acid Whole [id number] 08:28:00 Test Item Value Reference Range Interpretation Comments LACTIC ACID (test code = 2.60 mmol/L 2958653520) [facility] CenterCOVID-19 (ID NOW RAPID TESTING)2020-03-16 08:08:00 Test Item Value Reference Range Interpretation Comments SARS-CoV-2 Rapid ID NOW Not Detected Not Detected (test code = 24400-9) DIANE (test code = DIANE) ID NOW COVID-19 Assay is an isothermal nucleic acid amplification test intended for the qualitative detection of nucleic acid from SARS-CoV-2 viral RNA in nasopharyngeal (STRAIGHTENING MACHINE OPERATOR) specimens. It is used under Emergency Use Authorization (EUA) by FDA. The limit of detection (LOD) of the assay is 125 Genome Equivalents/mL. A positive result is indicative of the presence of SARS-CoV-2 RNA. ?Clinical correlation with patient history and other diagnostic [...] for repeat patient testing if clinically indicated. Lab Interpretation Normal (test code = 12143-9) [facility] CenterSEDIMENTATION [id number] 07:43:00 Test Item Value Reference Range Interpretation Comments ESR (test code = See_Comment H [Automated message] 5973831321) The system [employer] generated this result transmitted ref erence range: 0 - 10 m m/HR. The reference r batsheva was not used to interpret this result as normal/abnor mal. Lab Interpretation (test Abnormal code = 60007-3) [facility] CenterGLYCOSYLATED HEMOGLOBIN (A1C)2020-03-16 07:36:00 Test Item Value Reference Range Interpretation Comments HGB A1C (test code = 10.8 % 4-6 H 4548-4) DIANE (test code = DIANE) %A1C (NGSP) Interpretation (ADA)4.8-5.6 ? ? Normal or (Non-Diabetic Range)5.7-6.4 ? ? Increased Risk (Pre-Diabetic)>6.5 ?Diabetes Indicated Lab Interpretation Abnormal (test code = 79206-4) [facility] CenterLIPID PANEL (18190)(TOTAL CHOLESTEROL, TRIGLYCERIDES, HDL)2020-03-16 07:34:00 Test Item Value Reference Range Interpretation Comments CHOL (test code = 174 mg/dL 120-200 8372831734) HDL (test code = 13 mg/dL >40 L 0877566156) HDLC RATIO (test code = See_Comment H [Au tomated message] 5722495765) The system [employer] generated this result transmitted ref erence range: <=5.0. T he reference range was not used to int erpret this result as normal/abnormal . TRIG (test code = 490 mg/dL 30-170 H 3651260294) LDL CHOL (test code = Unable to calculate 19855-3) LDL due to elev ated triglyceride le haile greater than 40 0 mg/dL. VLDL (test code = 98 mg/dL 5-60 H 1162253308) Lab Interpretation Abnormal (test code = 92741-7) [facility] CenterCOMP. METABOLIC PANEL (80434)2020-03-16 06:40:00 Test Item Value Reference Range Interpretation Comments NA (test code = 134 mmol/L 135-145 L 1641417805) K (test code = 4.1 mmol/L 3.5-5 6637315556) CL (test code = 100 mmol/L 98-108 1727509015) CO2 TOTAL (test code = 16 mmol/L 23-31 L 8256052622) AGAP (test code = 2-16 H 2827395750) BUN (test code = 41 mg/dL 7-23 H 1001280441) GLUCOSE (test code = 382 mg/dL 70-110 H 1939576207) CREATININE (test code = 1.74 mg/dL 0.6-1.25 H 4028174965) TOTAL BILI (test code = 0.6 mg/dL 0.1-1.4 7214000332) CALCIUM (test code = 8.6 mg/dL 8.6-10.6 7953204369) T PROTEIN (test code = 6.5 g/dL 6.3-8.2 6776084900) ALBUMIN (test code = 3.1 g/dL 3.5-5 L 3449083065) ALK PHOS (test code = 196 U/L 34-122 H 8227438240) ALTv (test code = 61 U/L 5-50 H 1742-6) AST(SGOT) (test code = 63 U/L 13-40 H 2148218364) eGFR Calculation mL/min/1.73m2 (Non-) (test code = 2390342393) eGFR Calculation mL/min/1.73m2 () (test code = 5328925568) DIANE (test code = DIANE) Association of Glomerular Filtration Rate (GFR) and Staging of Kidney Disease* + --+ --+ ------+| GFR (mL/min/1.73 m2) ?| With Kidney Damage ?| ?Without Kidney Damage+ --------+ --------+ +| ?>90 ?| ?Stage one ?| ? Normal ?+ ---+ ---+ -------+| ?60-89 ?| ?Stage two ?| ? Decreased GFR ? + --+ --+ ------+| ?30-59 ?| ?Stage three ?| ? Stage three ? + --+ --+ ------+| ?15-29 ?| ?Stage four ? | ? Stage four ?+ ---+ ---+ -------+| ?<15 (or dialysis) ? ?| ?Stage five ? | ? Stage five ?+ ---+ ---+ -------+ *Each stage assumes the associated GFR level has been in effect for at least three months. ?Stages 1 to 5, with or without kidney disease, indicate chronic kidney disease. Notes: Determination of stages one and two (with eGFR >59mL/min/1.73 m2) requires estimation of kidney damage for at least three months as defined by structural or functional abnormalities of the kidney, manifested by either:Pathological abnormalities or Markers of kidney damage (including abnormalities in the composition of the blood or urine or abnormalities in imaging tests). Lab Interpretation Abnormal (test code = 09358-7) [facility] WITH [id number] 06:28:00 Test Item Value Reference Range Interpretation Comments WBC (test code = See_Comment H [Automated 5690-2) message] The system which generated this result transmit ludmila reference range : 4.20 - 10.70 10*3/?L. The reference range was not used to interpret this result as normal/abnormal . RBC (test code = See_Comment L [Automated 989-8) message] The system which generated this result transmit ludmila reference range : 4.26 - 5.52 10*6/?L. The reference range was not used to interpret this result as normal/abnormal . HGB (test code = 9.9 g/dL 12.2-16.4 L 718-7) HCT (test code = 28.5 % 38.4-49.3 L 4544-3) MCV (test code = 81.2 fL 81.7-95.6 L 787-2) MCH (test code = 28.2 pg 26.1-32.7 785-6) MCHC (test code = 34.7 g/dL 31.2-35 786-4) RDW-SD (test code = 38.5 fL 38.5-51.6 53750-6) RDW-CV (test code = 13.0 % 12.1-15.4 788-0) PLT (test code = See_Comment H [Automated 777-3) message] The system which generated this result transmit ludmila reference range : 150 - 328 10*3/ ?L. The reference range was not u sed to interpret th is result as normal/abnormal . MPV (test code = 10.6 fL 9.8-13 79151-2) NRBC/100 WBC (test See_Comment [Automat ed code = 1951527188) message] The system which generated this result transmit ludmila reference range : 0.0 - 10.0 /100 WBCs. The reference range was not used to interpret this result as normal/abnormal . NRBC x10^3 (test code <0.01 See_Comment [Auto mated = 0021376199) message] The system which generated this result transmit ludmila reference range : 10*3/?L. The reference range was not used to interpret this result as normal/abnormal . GRAN MAT (NEUT) % 82.8 % (test code = 770-8) IMM GRAN % (test code 3.40 % = 6661583911) LYMPH % (test code = 7.1 % 736-9) MONO % (test code = 4.9 % 5905-5) EOS % (test code = 1.2 % 713-8) BASO % (test code = 0.6 % 706-2) GRAN MAT x10^3(ANC) 16.00 10*3/uL 1.99-6.95 H (test code = 8945197361) IMM GRAN x10^3 (test 0.65 10*3/uL 0-0.06 H code = 3429789201) LYMPH x10^3 (test code 1.38 10*3/uL 1.09-3.23 = 731-0) MONO x10^3 (test code 0.94 10*3/uL 0.36-1.02 = 742-7) EOS x10^3 (test code = 0.23 10*3/uL 0.06-0.53 711-2) BASO x10^3 (test code 0.11 10*3/uL 0.01-0.09 H = 704-7) Lab Interpretation Abnormal (test code = 38741-3) [facility] CenterLaaric Acid Whole [id number] 06:14:00 Test Item Value Reference Range Interpretation Comments LACTIC ACID (test code = 4.72 mmol/L 0723504112) [facility]UCOSE (AUTOMATED)2020-02-05 17:03:00 Test Item Value Reference Range Interpretation Comments POCT GLU (test code = 3204359173) 173 mg/dL 70-110 H Lab Interpretation (test code = Abnormal 89370-3) [facility] GLUCOSE (AUTOMATED)2020-02-05 15:44:00 Test Item Value Reference Range Interpretation Comments POCT GLU (test code = 7067267947) 127 mg/dL 70-110 H Lab Interpretation (test code = Abnormal 60050-5) [facility] GLUCOSE (AUTOMATED)2020-02-05 12:58:00 Test Item Value Reference Range Interpretation Comments POCT GLU (test code = 7855895387) 112 mg/dL 70-110 H Lab Interpretation (test code = Abnormal 65910-0) [facility] CenterTROPONIN [id number] 10:31:00 Test Item Value Reference Range Interpretation Comments TROPONIN I (test 0.022 ng/mL See_Comment [Automated code = 2205429275) message] The system which generated this result transmitted reference range : <=0.034. The reference range was not used to interpret this result as normal/abnormal . DIANE (test code = Equal or Less than DIANE) 0.034 ng/ml---Normal ?Note: Cardiac troponin begins to rise 3-4 hours after the onset of ischemia. Repeat in 4-6 hours if the sample was drawn within 3-4 hours of the onset of the symptom and found normal. Between 0.035 and 0.120 ng/mL--- Borderline. Questionable myocardial injury or necrosis ? ?Note: Serial measurement may be necessary to confirm or exclude the diagnosis of myocardial injury or necrosis; Clinical correlation (symptoms, EKGs, imaging studies, and others) required; Repeat in 4-6 hours if clinically indicated. ? Equal or Higher than 0.121 ng/mL---Abnormal. Myocardial Injury or Necrosis Likely ? Biotin has been reported to cause a negative bias, interpret results relative to patient's use of biotin. ? Lab Interpretation Normal (test code = 42173-3) [facility] CenterN-TERMINAL [id number] 10:28:00 Test Item Value Reference Range Interpretation Comments NT-proBNP (test code 1840 pg/mL See_Comment H [Autom ated = 6986251192) message] The system which generated this result transmitted reference range : <=125. The reference range was not used to interpret this result as normal/abnormal . DIANE (test code = DIANE) Biotin has been reported to cause a negative bias, interpret results relative to patient's use of biotin. Lab Interpretation Abnormal (test code = 38816-0) [facility] Center[facility] PANEL (NA, K, CL, CO2, GLUCOSE, BUN, CREATININE, CA)2020-02-05 10:23:00 Test Item Value Reference Range Interpretation Comments NA (test code = 139 mmol/L 135-145 3028084739) K (test code = 3.5 mmol/L 3.5-5 1039728559) CL (test code = 102 mmol/L 98-108 8887213613) CO2 TOTAL (test code = 28 mmol/L 23-31 7933173518) AGAP (test code = 2-16 1496558621) BUN (test code = 20 mg/dL 7-23 0332123095) GLUCOSE (test code = 138 mg/dL 70-110 H 0814634724) CREATININE (test code = 1.16 mg/dL 0.6-1.25 8938941725) CALCIUM (test code = 8.8 mg/dL 8.6-10.6 3177580821) eGFR Calculation mL/min/1.73m2 (Non-) (test code = 3771385109) eGFR Calculation mL/min/1.73m2 () (test code = 0593301352) DIANE (test code = DIANE) Association of Glomerular Filtration Rate (GFR) and Staging of Kidney Disease* + --+ --+ ------+| GFR (mL/min/1.73 m2) ?| With Kidney Damage ?| ?Without Kidney Damage+ --------+ --------+ +| ?>90 ?| ?Stage one ?| ? Normal ?+ ---+ ---+ -------+| ?60-89 ?| ?Stage two ?| ? Decreased GFR ? + --+ --+ ------+| ?30-59 ?| ?Stage three ?| ? Stage three ? + --+ --+ ------+| ?15-29 ?| ?Stage four ? | ? Stage four ?+ ---+ ---+ -------+| ?<15 (or dialysis) ? ?| ?Stage five ? | ? Stage five ?+ ---+ ---+ -------+ *Each stage assumes the associated GFR level has been in effect for at least three months. ?Stages 1 to 5, with or without kidney disease, indicate chronic kidney disease. Notes: Determination of stages one and two (with eGFR >59mL/min/1.73 m2) requires estimation of kidney damage for at least three months as defined by structural or functional abnormalities of the kidney, manifested by either:Pathological abnormalities or Markers of kidney damage (including abnormalities in the composition of the blood or urine or abnormalities in imaging tests). Lab Interpretation Abnormal (test code = 99489-6) [facility] CenterURIC [id number] 10:23:00 Test Item Value Reference Range Interpretation Comments URIC ACID (test code = 3924406718) 9.1 mg/dL 3.6-8 H Lab Interpretation (test code = Abnormal 29126-0) [facility] CenterCB WITH [id number] 09:46:00 Test Item Value Reference Range Interpretation Comments WBC (test code = See_Comment [Automated 6690-2) message] The sy stem which generated this result transmitted reference range : 4.20 - 10.70 10*3/?L. The reference range was not used to interpret this result as normal/abnormal . RBC (test code = See_Comment L [Automated 789-8) message] The sy stem which generated this result transmitted reference range : 4.26 - 5.52 10*6/?L. The reference range was not used to interpret this result as normal/abnormal . HGB (test code = 8.7 g/dL 12.2-16.4 L 718-7) HCT (test code = 26.8 % 38.4-49.3 L 4544-3) MCV (test code = 88.7 fL 81.7-95.6 787-2) MCH (test code = 28.8 pg 26.1-32.7 785-6) MCHC (test code = 32.5 g/dL 31.2-35 786-4) RDW-SD (test code = 43.9 fL 38.5-51.6 03795-1) RDW-CV (test code = 13.5 % 12.1-15.4 788-0) PLT (test code = See_Comment [Automated 777-3) message] The sy stem which generated this result transmitted reference range : 150 - 328 10*3/ ?L. The reference r batsheva was not used to interpret this result as normal/abnormal . MPV (test code = 10.9 fL 9.8-13 10448-2) NRBC/100 WBC (test See_Comment [Automat ed code = 6285402530) message] The system which generated this result transmitted reference range : 0.0 - 10.0 /100 WBCs. The refer ence range was not u sed to interpret th is result as normal/abnormal . NRBC x10^3 (test code <0.01 See_Comment [Auto mated = 5807488411) message] The s ystem which generated this result transmitted reference range : 10*3/?L. The reference range was not used to interpret this result as normal/abnormal . GRAN MAT (NEUT) % 63.9 % (test code = 770-8) IMM GRAN % (test code 0.30 % = 6205128953) LYMPH % (test code = 21.1 % 736-9) MONO % (test code = 10.9 % 5905-5) EOS % (test code = 3.4 % 713-8) BASO % (test code = 0.4 % 706-2) GRAN MAT x10^3(ANC) 4.51 10*3/uL 1.99-6.95 (test code = 4721327146) IMM GRAN x10^3 (test <0.03 0-0.06 code = 1659469128) LYMPH x10^3 (test code 1.49 10*3/uL 1.09-3.23 = 731-0) MONO x10^3 (test code 0.77 10*3/uL 0.36-1.02 = 742-7) EOS x10^3 (test code = 0.24 10*3/uL 0.06-0.53 711-2) BASO x10^3 (test code 0.03 10*3/uL 0.01-0.09 = 704-7) Lab Interpretation Abnormal (test code = 38330-4) [facility]PO[facility])2020-02-05 09:40:00 Test Item Value Reference Range Interpretation Comments POCT GLU (test code = 0366089176) 124 mg/dL 70-110 H Lab Interpretation (test code = Abnormal 98635-0) [facility] CenterUREA NITROGEN, URINE [id number] 05:55:00 Test Item Value Reference Range Interpretation Comments UREA N UR (test code = 0681593045) 119 mg/dL [facility] CenterLIPID PANEL (26514)(TOTAL CHOLESTEROL, TRIGLYCERIDES, HDL)2020-02-05 03:54:00 Test Item Value Reference Range Interpretation Comments CHOL (test code = 187 mg/dL 120-200 4235470036) HDL (test code = 32 mg/dL >40 L 6569350613) HDLC RATIO (test code = See_Comment H [Au tomated message] 7826838079) The system [employer] generated this result transmit ludmila reference range : <=5.0. The refe rence range was not u sed to interpret th is result as normal/abnormal . TRIG (test code = 164 mg/dL 30-170 6093933961) LDL CHOL (test code = 122 mg/dL See_Comment [Auto mated message] 54241-5) The system [employer] generated this result transmit ludmila reference range : <=160. The refe rence range was not u sed to interpret th is result as normal/abnormal . VLDL (test code = 33 mg/dL 5-60 0235852123) Lab Interpretation (test Abnormal code = 84276-7) [facility] CenterPROTEIN CREAT RATIO URINE [id number] 23:54:00 Test Item Value Reference Range Interpretation Comments T. PROT U (test code 22 mg/dL = 2888-6) CREAT U (test code = 27.1 mg/dL 7725680642) Protein/Creatinine 0.0-2.0 Ratio Urine (test code = 5951172605) DIANE (test code = DIANE) Random Urine Total Protein Reference Ranges Random Specimen: ? Less than 10 mg/dLFirst Morning Specimen: ? ?Less than 20 mg/dL ? [facility] CenterSODIUM, URINE [id number] 23:35:00 Test Item Value Reference Range Interpretation Comments NA URINE (test code = 9833419978) 130 mmol/L [facility]PO[facility]SE (AUT[facility]ATED)2020-02-04 21:42:00 Test Item Value Reference Range Interpretation Comments POCT GLU (test code = 4567629256) 214 mg/dL 70-110 H Lab Interpretation (test code = Abnormal 44820-4) [facility] CenterTROPONIN [id number] 18:36:00 Test Item Value Reference Range Interpretation Comments TROPONIN I (test 0.021 ng/mL See_Comment [Automated code = 7759992956) message] The system which generated this result transmitted reference range : <=0.034. The reference range was not used to interpret this result as normal/abnormal . DIANE (test code = Equal or Less than DIANE) 0.034 ng/ml---Normal ?Note: Cardiac troponin begins to rise 3-4 hours after the onset of ischemia. Repeat in 4-6 hours if the sample was drawn within 3-4 hours of the onset of the symptom and found normal. Between 0.035 and 0.120 ng/mL--- Borderline. Questionable myocardial injury or necrosis ? ?Note: Serial measurement may be necessary to confirm or exclude the diagnosis of myocardial injury or necrosis; Clinical correlation (symptoms, EKGs, imaging studies, and others) required; Repeat in 4-6 hours if clinically indicated. ? Equal or Higher than 0.121 ng/mL---Abnormal. Myocardial Injury or Necrosis Likely ? Biotin has been reported to cause a negative bias, interpret results relative to patient's use of biotin. ? Lab Interpretation Normal (test code = 42306-3) [facility] CenterPROCALCITONIN2020-09-15 18:03:00 Test Item Value Reference Range Interpretation Comments Procalcitonin (test 0.02 ng/mL <0.07 code = 2465670857) DIANE (test code = DIANE) INTERPRETATION OF PROCALCITONIN RESULTS IN ADULTS >= 18 YEARS OF AGE Initiation and discontinuation of antibiotics on patients with suspected or confirmed Lower Respiratory Tract Infection in Adults >= 18 years of age. + +-------- --------+ + -----+|Procalcitonin |Interpretation ?|Antibiotic ? ? |Considerations ? |ng/mL ? | ?|recommendation | ? + +-------- --------+ + -----+| <0.1 ? | Bacterial ? ? ?| Strongly ? ? ?| ? | ?| infection very | discouraged ? | Overruling: ? | ?| unlikely ? ? ? | ? | ? Clinically unstable ? ? ? + +-------- --------+ + ? High risk for adverse ? ? | <0.25 ?| Bacterial ? ? ?| Discouraged ? | ? outcome ? | ?| infection ? ? ?| ? | ? SEE IMPORTANT NOTE ?| ?| unlikely ? ? ? | ? | ? + +-------- --------+ + -----+| >=0.25 ? ? ? | Bacterial ? ? ?| Encouraged ? ?| ? | ?| infection ? ? ?| ? | ? | ?| likely ? | ? | Consider treatment failure ?+ +------- ---------+ -+ if levels does not decrease | >0.5 ? | Bacterial ? ? ?| Strongly ? ? ?| appropriately ? | ?| infection very | encouraged ? ?| ? | ?| likely ? | ? | ? + +-------- --------+ + -----+ Discontinuation of antibiotics in high-acuity patients with suspected or confirmed sepsis in Adults >= 18 years of age. + +-------- --------+ + -----+|Procalcitonin |Interpretation ?|Antibiotic ? ? |Considerations ? |ng/mL ? | ?|recommendation | ? + +-------- --------+ + -----+| <0.25 ?| Bacterial ? ? ?| Strongly ? ? ?| ? | ?| infection very | discouraged ? | Overruling: ? | ?| unlikely ? ? ? | ? | ? Clinically unstable ? ? ? + +-------- --------+ + ? High risk for adverse ? ? | <0.5 or drop | Bacterial ? ? ?| Discouraged ? | ? outcome ? | >80% from ? ?| infection ? ? ?| ? | ? SEE IMPORTANT NOTE ?| highest PCT ?| unlikely ? ? ? | ? | ? | level ?| ?| ? | ? + +-------- --------+ + -----+| >=0.5 ?| Bacterial ? ? ?| Encouraged ? ?| ? | ?| infection ? ? ?| ? | ? | ?| likely ? | ? | Consider treatment failure ?+ +------- ---------+ -+ if levels does not decrease | >1.0 ? | Bacterial ? ? ?| Strongly ? ? ?| appropriately ? | ?| infection very | encouraged ? ?| ? | ?| likely ? | ? | ? + +-------- --------+ + -----+ Percentage of drop of Procalcitonin calculation for Discontinuation of antibiotics in high-acuity patients with suspected or confirmed sepsis in Adults >= 18 years of age. ? Procalcitonin highest{}-Procalcitonin current{}Delta Procalcitonin = x100% ? Procalcitonin current {} IMPORTANT NOTE: Procalcitonin may be elevated without bacterial infection by physiologic stress related to trauma, lombardo, chronic dialysis, metastatic cancer, surgery in the past seven days, malaria, some fungal infections, and some forms of vasculitis. The interpretation algorithm may not apply to patients with immunosuppression (equivalent of >10 mg of prednisone daily), HIV with CD4 cell count < 350 cells/mm3, active malignancy on systemic chemotherapy, solid organ transplant or hematopoietic stem cell transplantation, or hospital acquired pneumonia. Additionally, some clinical trials of procalcitonin have excluded patients with shock requiring vasopressor use, acute respiratory failure requiring mechanical ventilation, or those with known lung abscess/empyema. For further information please refer to:[email or web address] Lab Interpretation Normal (test code = 23773-0) [facility] CenterPOCT GLUCOSE (AUTOMATED)2020-02-04 17:22:00 Test Item Value Reference Range Interpretation Comments Lab Interpretation (test code = Abnormal 50032-2) [facility] CenterVITAMIN B12, [id number] 17:13:00 Test Item Value Reference Range Interpretation Comments VIT B12 (test code = 428 pg/mL 240-930 1812217523) DIANE (test code = DIANE) Biotin has been reported to cause a positive bias, interpret results relative to patient's use of biotin. Lab Interpretation (test Normal code = 66652-1) [facility] CenterVITAMIN D, [id number] 16:59:00 Test Item Value Reference Range Interpretation Comments VIT D 25OH (test code = 20 ng/mL 25-80 L 33908-2) DIANE (test code = DIANE) Deficiency: <20 ng/mLInsufficiency: 20-24 ng/mLOptimal: 25-80 ng/mL Lab Interpretation (test Abnormal code = 94291-9) [facility] CenterXR FOOT 3+ VW [id number] 13:07:34HISTORY: Left heel ulcer and wound. FINDINGS: AP, lateral, oblique views of left foot showed no acute fractureor dislocation. Mild first metatarsophalangeal varus with hallux valgusdeformity, mild osteopenia of foot bones, degenerative arthritis of thetalonavicular joint and arteriosclerosis noted. Note made of soft tissueulcer involving heel pad without any involvement of the underlying bone.Comparison is made with 08/15/2019 study CONCLUSIONS: No acute fracture or dislocation or signs of osteomyelitis inthe left foot bones. [facility], Radiant Results Inft User - 02/04/2020 8:08 AM CDTHISTORY: Left heel ulcer and wound.FINDINGS: AP, lateral, oblique views of left foot showed no acute fractureor dislocation. Mild first metatarsophalangeal varus with hallux valgusdeformity, mild osteopenia of foot bones, degenerative arthritis of thetalonavicular joint and arteriosclerosis noted. Note made of soft tissueulcer involving heel pad without any involvement of the underlying bone.Comparison is made with 08/15/2019 studyCONCLUSIONS: No acute fracture or dislocation or signs of osteomyelitis inthe left foot bones.[facility] CenterPO[facility]UCOSE (AUT[facility]ATED)2020-02-04 13:04:00 Test Item Value Reference Range Interpretation Comments POCT GLU (test code = 3816497801) 232 mg/dL 70-110 H Lab Interpretation (test code = Abnormal 89941-2) [facility] CenterXR CHEST 1 [id number] 12:54:48HISTORY: CHF. TECHNIQUE: Portable AP view of the chest is obtained. Comparison made with11/20/2019 study. FINDINGS: No acute pneumonia. Small left pleural effusion noted. Nopneumothorax or pulmonary congestion detected. Mild cardiomegaly, bipolarpermanent pacemaker inserted through left subclavian and midline sternotomysutures from prior open thoracic surgery noted. Note made of calcifiedgranuloma in the left upper lung and metallic stent probably in leftsubclavian artery. CONCLUSIONS: Mild cardiomegaly and small left pleural effusion.[facility], Radiant Results Inft User - 02/04/2020 7:55 AM CDTHISTORY: C HF.TECHNIQUE: Portable AP view of the chest is obtained. Comparison made with11/20/2019 study.FINDINGS: No acute pneumonia. Small left pleural effusion noted. Nopneumothorax or pulmonary congestion detected. Mild cardiomegaly, bipolarpermanent pacemaker inserted through left subclavian and midline sterno tomysutures from prior open thoracic surgery noted. Note made of calcifiedgranuloma in the left upper lung and metallic stent probably in leftsubclavian artery.CONCLUSIONS: Mild cardiomegaly and small left pleural effusion.[facility] CenterABORH [id number] 10:33:05 Test Item Value Reference Range Interpretation Comments ABO & RH (test code O Positive Performe d at [facility] = 20) Laboratory Serv [facility] [place] [id number] Free: [phone] A No. [id number] [facility] CenterPOSC GLUCOSE (AUTOMATED)2020-02-04 08:45:00 Test Item Value Reference Range Interpretation Comments POCT GLU (test code = 8273499555) 141 mg/dL 70-110 H Lab Interpretation (test code = Abnormal 64167-2) [facility] CenterTROPONIN [id number] 08:34:00 Test Item Value Reference Range Interpretation Comments TROPONIN I (test 0.039 ng/mL See_Comment H [Automated code = 2927337045) message] The system which generated this result transmitted reference range : <=0.034. The reference range was not used to interpret this result as normal/abnormal . IDANE (test code = Equal or Less than DIANE) 0.034 ng/ml---Normal ?Note: Cardiac troponin begins to rise 3-4 hours after the onset of ischemia. Repeat in 4-6 hours if the sample was drawn within 3-4 hours of the onset of the symptom and found normal. Between 0.035 and 0.120 ng/mL--- Borderline. Questionable myocardial injury or necrosis ? ?Note: Serial measurement may be necessary to confirm or exclude the diagnosis of myocardial injury or necrosis; Clinical correlation (symptoms, EKGs, imaging studies, and others) required; Repeat in 4-6 hours if clinically indicated. ? Equal or Higher than 0.121 ng/mL---Abnormal. Myocardial Injury or Necrosis Likely ? Biotin has been reported to cause a negative bias, interpret results relative to patient's use of biotin. ? Lab Interpretation Abnormal (test code = 40302-3) [facility] CenterIRON [id number] 08:31:00 Test Item Value Reference Range Interpretation Comments IRON (test code = 4332776729) 38 ug/dL 50-160 L TIBC (test code = 8205443783) 352 ug/dL 250-410 % FE SAT (test code = 6807180651) 11 % 20-50 L Lab Interpretation (test code = Abnormal 22474-3) [facility] CenterN-TERMINAL [id number] 08:31:00 Test Item Value Reference Range Interpretation Comments NT-proBNP (test code 1920 pg/mL See_Comment H [Autom ated = 9228827993) message] The system which generated this result transmitted reference range : <=125. The reference range was not used to interpret this result as normal/abnormal . DIANE (test code = DIANE) Biotin has been reported to cause a negative bias, interpret results relative to patient's use of biotin. Lab Interpretation Abnormal (test code = 57749-0) [facility] CenterLactate [id number] 08:22:00 Test Item Value Reference Range Interpretation Comments LDH (test code = 2983525499) 590 U/L 300-600 Lab Interpretation (test code = Normal 62539-7) [facility] CenterBASIC METABOLIC PANEL (NA, K, CL, CO2, GLUCOSE, BUN, CREATININE, CA)2020-02-04 08:22:00 Test Item Value Reference Range Interpretation Comments NA (test code = 140 mmol/L 135-145 9031334879) K (test code = 4.0 mmol/L 3.5-5 7512968827) CL (test code = 106 mmol/L 98-108 7431872965) CO2 TOTAL (test code = 27 mmol/L 23-31 5122958415) AGAP (test code = 2-16 2941647725) BUN (test code = 12 mg/dL 7-23 3330950280) GLUCOSE (test code = 150 mg/dL 70-110 H 3486648893) CREATININE (test code = 0.91 mg/dL 0.6-1.25 0683431707) CALCIUM (test code = 9.0 mg/dL 8.6-10.6 8541265270) eGFR Calculation mL/min/1.73m2 (Non-) (test code = 5452652810) eGFR Calculation mL/min/1.73m2 () (test code = 5223653057) DIANE (test code = DIANE) Association of Glomerular Filtration Rate (GFR) and Staging of Kidney Disease* + --+ --+ ------+| GFR (mL/min/1.73 m2) ?| With Kidney Damage ?| ?Without Kidney Damage+ --------+ --------+ +| ?>90 ?| ?Stage one ?| ? Normal ?+ ---+ ---+ -------+| ?60-89 ?| ?Stage two ?| ? Decreased GFR ? + --+ --+ ------+| ?30-59 ?| ?Stage three ?| ? Stage three ? + --+ --+ ------+| ?15-29 ?| ?Stage four ? | ? Stage four ?+ ---+ ---+ -------+| ?<15 (or dialysis) ? ?| ?Stage five ? | ? Stage five ?+ ---+ ---+ -------+ *Each stage assumes the associated GFR level has been in effect for at least three months. ?Stages 1 to 5, with or without kidney disease, indicate chronic kidney disease. Notes: Determination of stages one and two (with eGFR >59mL/min/1.73 m2) requires estimation of kidney damage for at least three months as defined by structural or functional abnormalities of the kidney, manifested by either:Pathological abnormalities or Markers of kidney damage (including abnormalities in the composition of the blood or urine or abnormalities in imaging tests). Lab Interpretation Abnormal (test code = 85286-1) [facility] BranchUR[facility] [id number] 08:22:00 Test Item Value Reference Range Interpretation Comments URIC ACID (test code = 2655468660) 7.7 mg/dL 3.6-8 Lab Interpretation (test code = Normal 29492-4) [facility] CenterType and Screen - ONCE [id number] 08:06:05 Test Item Value Reference Range Interpretation Comments ABO & RH (test code O Positive Performe d at [facility] = 20) Laboratory Serv [facility] [place], [place] [address]Toll Free: [phone] A No. [id number] IAT (test code = Negative Performed a t [facility] 1185) Laboratory [facility] [place], [place] [id number] Free: [phone] A No. [id number] [facility] CenterCBC WITH [id number] 07:08:00 Test Item Value Reference Range Interpretation Comments WBC (test code = See_Comment [Automated 2290-2) message] The sy stem which generated this result transmitted reference range : 4.20 - 10.70 10*3/?L. The reference range was not used to interpret this result as normal/abnormal . RBC (test code = See_Comment L [Automated 257-8) message] The sy stem which generated this result transmitted reference range : 4.26 - 5.52 10*6/?L. The reference range was not used to interpret this result as normal/abnormal . HGB (test code = 9.4 g/dL 12.2-16.4 L 718-7) HCT (test code = 28.7 % 38.4-49.3 L 4544-3) MCV (test code = 89.4 fL 81.7-95.6 787-2) MCH (test code = 29.3 pg 26.1-32.7 785-6) MCHC (test code = 32.8 g/dL 31.2-35 786-4) RDW-SD (test code = 45.0 fL 38.5-51.6 99194-1) RDW-CV (test code = 13.7 % 12.1-15.4 788-0) PLT (test code = See_Comment [Automated 217-3) message] The sy stem which generated this result transmitted reference range : 150 - 328 10*3/ ?L. The reference r batsheva was not used to interpret this result as normal/abnormal . MPV (test code = 9.8 fL 9.8-13 20711-9) NRBC/100 WBC (test See_Comment [Automat ed code = 7621197302) message] The system which generated this result transmitted reference range : 0.0 - 10.0 /100 WBCs. The refer ence range was not u sed to interpret th is result as normal/abnormal . NRBC x10^3 (test code <0.01 See_Comment [Auto mated = 5951653513) message] The s ystem which generated this result transmitted reference range : 10*3/?L. The reference range was not used to interpret this result as normal/abnormal . GRAN MAT (NEUT) % 50.8 % (test code = 770-8) IMM GRAN % (test code 0.20 % = 8408767287) LYMPH % (test code = 34.0 % 736-9) MONO % (test code = 9.8 % 5905-5) EOS % (test code = 4.8 % 713-8) BASO % (test code = 0.4 % 706-2) GRAN MAT x10^3(ANC) 2.87 10*3/uL 1.99-6.95 (test code = 1094459144) IMM GRAN x10^3 (test <0.03 0-0.06 code = 7856078640) LYMPH x10^3 (test code 1.92 10*3/uL 1.09-3.23 = 731-0) MONO x10^3 (test code 0.55 10*3/uL 0.36-1.02 = 742-7) EOS x10^3 (test code = 0.27 10*3/uL 0.06-0.53 711-2) BASO x10^3 (test code <0.03 0.01-0.09 = 704-7) Lab Interpretation Abnormal (test code = 67733-8) [facility] BranchL[facility] Acid Whole [id number] 06:49:00 Test Item Value Reference Range Interpretation Comments LACTIC ACID (test code = 1.60 mmol/L 2261776920) [facility] CenterFERRITIN [id number] 06:45:00 Test Item Value Reference Range Interpretation Comments FERRITIN (test code = 20.4 ng/mL 18-464 5533948178) DIANE (test code = DIANE) Biotin has been reported to cause a negative bias, interpret results relative to patient's use of biotin. Lab Interpretation (test Normal code = 23930-4) [facility] CenterTHYROID STIMULATING [id number] 06:41:00 Test Item Value Reference Range Interpretation Comments TSH (test code = See_Comment [Automated message] 8881007049) The system [employer] generated this result transmitted ref erence range: 0.45 - 4 .70 mIU/L. The refe rence range was not u sed to interpret this result as normal/abnor mal. Lab Interpretation (test Normal code = 05717-7) [facility] CenterProtein Total [id number] 06:22:00 Test Item Value Reference Range Interpretation Comments T PROTEIN (test code = 5217156691) 7.0 g/dL 6.3-8.2 Lab Interpretation (test code = Normal 84188-9) [facility] CenterGlucose, [id number] 06:21:00 Test Item Value Reference Range Interpretation Comments GLUCOSE (test code = 2167333217) 220 mg/dL 70-110 H Lab Interpretation (test code = Abnormal 10134-4) [facility] [id number] 06:21:00 Test Item Value Reference Range Interpretation Comments URIC ACID (test code = 2920631276) 7.5 mg/dL 3.6-8 Lab Interpretation (test code = Normal 65497-4) [facility] CenterAM[facility]2020-09-15 06:21:00 Test Item Value Reference Range Interpretation Comments SERGIO (test code = 1952076582) 110 U/L 35-110 Lab Interpretation (test code = Normal 57741-7) [facility] CenterCOVID[facility]19 (ID NOW RAPID TESTING)2020-02-04 02:30:00 Test Item Value Reference Range Interpretation Comments SARS-CoV-2 Rapid ID NOW Not Detected Not Detected (test code = 76675-5) DIANE (test code = DIANE) ID NOW COVID-19 Assay is an isothermal nucleic acid amplification test intended for the qualitative detection of nucleic acid from SARS-CoV-2 viral RNA in nasopharyngeal (STRAIGHTENING MACHINE OPERATOR) specimens. It is used under Emergency Use Authorization (EUA) by FDA. The limit of detection (LOD) of the assay is 125 Genome Equivalents/mL. A positive result is indicative of the presence of SARS-CoV-2 RNA. ?Clinical correlation with patient history and other diagnostic [...] for repeat patient testing if clinically indicated. Lab Interpretation Normal (test code = 24509-7) [facility] CenterCT [facility] ABDOMEN/[id number] 00:41:00 Impression: 1. Atherosclerotic disease, with no aneurysm or dissection of the abdominalaorta. No hemodynamically significant stenoses of the major arterialbranches.2. 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 Cholecystectomy.4. A right adrenal low-attenuation lesion cannot be fully characterized,but may reflect a hyperdense cyst.5. Prostatic enlargement. RL: 460 End of Report Ordering Physician: ÓSCAR HERMOSILLO Clinical history: Follow-up known abdominal aortic aneurysm Comparison: None Technique: CT angiography of the chest was performed without and withintravenous contrast. Axial source images, MPRS, and MIPS were reviewed.This examination was performed according to ALARA principles. Findings: There is again noted to be atherosclerotic calcification of the abdominalaorta and its branches. No aneurysm or dissection is apparent. The celiacand superior mesenteric arteries are again noted to arise from a commontrunk. No significant stenoses of these arteries are apparent. Nosignificant renal artery stenosis is apparent. There is again noted to beearly opacification of the right common femoral vein,likely reflectingarteriovenous fistula. The patient is status post cholecystectomy. The liver, spleen, pancreas,and adrenal glands are unremarkable. A low-attenuation cortical lesion ofthe right kidneymeasures slightly greater than water attenuation. Thiscannot be fully characterized, although it is likely a cyst hyperdensecyst. The prostate gland is mildly enlarged. Mild prominence of the urinarybladder wall is likely due to incomplete distention. A previously noted metallic foreign body within the sigmoid colon, likelyendoscopic hemostasis clip, is no longer apparent. There is no evidence ofcolitis or diverticulitis. A normal appendix is identified. There is nobowel obstruction. There is no free intraperitoneal fluid or freeintraperitoneal air. Degenerative and postoperative changes of the lumb arspine are again noted. No acute bony abnormalities are evident. [facility], Radiant Results Inft User - 02/03/2020 7:42 PM CDTOrdering Physician: ÓSCAR COYNEUNLEClinical history: Follow-up known abdominal aortic aneurysmComparison: NoneTechnique: CT angiography of the chest was performed without and wi thintravenous contrast. Axial source images, MPRS, and MIPS were reviewed.This examination was performed according to ALARA principles.Findings:There is again noted to be atherosclerotic calcification of the abdominalaorta and its branches. No aneurysm or dissection is apparent. The celiacand superior mesenteric arteries are again noted to arise from a commontrunk. No significant stenoses of these arteries are apparent. Nosignificant renal artery stenosis is apparent. There is again noted to beearlyopacification of the right common femoral vein, likely reflectingarteriovenous fistula.The patient is status post cholecystectomy. The liver, spleen, pancreas,and adrenal glands are unremarkable. A low-attenuation cortical lesion ofthe right kidney measures slightly greater than water attenuation. Thiscannot be fully characterized, although it is likely a cyst hyperdensecyst. The prostate gland is mildly enlarged. Mild prominence of the urinarybladder wall is likely due to incomplete distention.A previously noted metallic foreign body within the sigmoid colon, likelyendoscopic hemostasis clip, is no longer apparent. There is no evidence ofcolitis or diverticulitis. A normal appendix is identified.There is nobowel obstruction. There is no free intraperitoneal fluid or freeintraperitoneal air. Degenerative and postoperative changes of the lumbarspine are again noted. No acute bony abnormalities are evident.IMPRESSIONImpression:1. Atherosclerotic disease, with no aneurysm or dissection of the abdominalaorta. No hemodynamically significant stenoses of the major arterialbranches.2. 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 Cholecystectomy.4. A right adrenal low-attenuation lesion cannot be fully characterized,but may reflect a hyperdense cyst.5. Prostatic enlargement.RL: 460End of Report [facility] [id number] 23:55:31Impression: 1. No prior studies for comparison.2. Atherosclerosis, including atherosclerotic coronary artery disease. Thepatient is status post pacemaker placement.3. No evidence of thoracic aortic aneurysm or dissection.4. Patent stent within the left subclavian artery.5. Large bilateral pleural effusions, with scattered areas of subsegmentalatelectasis.6. Please see separate report for CTA of the ab domen. 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 Comparison: None available Technique: CT angiography of the chest was performed with intravenouscontrast. Axial source images, MPRS, and MIPS were reviewed. Thisexamination was performed according to ALARA principles. Findings: The patient is status post median sternotomy and left transvenousasymmetric replacement. There is atherosclerotic calcification of thethoracic aorta and its branches, including the coronary arteries. There zechariah patent stent within the proximal left subclavian artery. There is nothoracic aortic aneurysm or dissection. Precontrast images demonstrate noevidence of intramural hematoma. Heart size is normal. No pericardialeffusion is evident. No filling defects are seen within the pulmonaryarterial tree to suggest pulmonary embolus. There are large bilateral pleural effusions. Scattered areas ofsubsegmental atelectasis are seen within both lungs. No intrathoraciclymphadenopathy is apparent. No acute bony abnormalities of the thorax areapparent. Degenerative changes of the spine are noted. Abdominal findingsare described in a separate report for CT of the abdomen. [facility], Radiant ResultsInft User - 02/03/2020 6:56 PM CDTOrdering Physician: ÓSCAR RICARDOlinical history: Known aortic arch dissection. Follow-up.Comparison: None availableTechnique: CT angiography of the chest was performed with intravenouscontrast. Axial source images, MPRS, and MIPS were reviewed. Thisexaminationwas performed according to ALARA principles.Findings:The patient is status post median sternotomy and left transvenousasymmetric replacement. There is atherosclerotic calcification of thethoracic aortaand its branches, including the coronary arteries. There zechariah patent stent within the proximal left subclavian artery. There is nothoracic aortic aneurysm or dissection. Precontrast images demonstrate noevidence of intramural hematoma. Heart size is normal. No pericardialeffusion is evident. No fillingdefects are seen within the pulmonaryarterial tree to suggest pulmonary embolus.There are large bilateral pleural effusions. Scattered areas ofsubsegmental atelectasis are seen within both lungs. No intrathoraciclymphadenopathy is apparent. No acute bony abnormalities of the thorax areapparent. Degenerative changes of the spine are noted. Abdominal findingsare described in a separate report for CT ofthe abdomen.IMPRESSIONImpression:1. No prior studies for comparison.2. Atherosclerosis, including atherosclerotic coronary artery disease. Thepatient is status post pacemaker placement.3. No evidence of thoracic aortic aneurysm or dissection.4. Patent stent within the left subclavian artery.5. Large bilateral pleural effusions, with scattered areas of subsegmentalatelectasis.6. Please see separate report for CTA of the abdomen.RL: 460End of Report [facility] HospitalUrinalysis2020-09-14 23:09:00 Test Item Value Reference Range Interpretation Comments APPEARANCE (test code = Clear Clear 9629080854) COLOR (test code = Yellow Yellow 9625979344) PH (test code = 4.8-8.0 7001891483) SP GRAVITY (test code = 1.003-1.030 1025027234) GLU U QUAL (test code = 150 mg/dL Normal A 9979070635) BLOOD (test code = 1+ Negative A 8150346117) KETONES (test code = Negative Negative 3945553055) PROTEIN (test code = 100 mg/dL Negative A 2887-8) UROBILIN (test code = Normal Normal 3405648317) BILIRUBIN (test code = Negative Negative 3051713730) NITRITE (test code = Negative Negative 5140309375) LEUK PETER (test code = Negative Negative 8481843582) RBC/HPF (test code = See_Comment [Autom ated message] 3089849780) The system [employer] generated this result transmit ludmila reference range : 0 - 3 HPF. The refe rence range was not u sed to interpret th is result as normal/abnormal . WBC/HPF (test code = See_Comment [Autom ated message] 2392675143) The system [employer] generated this result transmit ludmila reference range : 0 - 5 HPF. The refe rence range was not u sed to interpret th is result as normal/abnormal . BACTERIA (test code = Negative Negative 6077214128) MUCOUS (test code = Slight Negative LPF A 6213633480) Lab Interpretation (test Abnormal code = 87558-6) [facility] CenterHepatic Function Panel (ALB, T.PRO, BILI T, BU/BC, ALT, AST, ALK PHOS)2020-02-03 23:04:00 Test Item Value Reference Range Interpretation Comments TOTAL BILI (test code = 5849059690) 0.4 mg/dL 0.1-1.1 BILI UNCON (test code = 8216266571) 0.5 mg/dL 0.1-1.1 BILI CONJ (test code = 4161531248) 0.0 mg/dL 0-0.3 T PROTEIN (test code = 2429260085) 7.4 g/dL 6.3-8.2 ALBUMIN (test code = 6910163356) 3.9 g/dL 3.5-5 ALK PHOS (test code = 0634871768) 127 U/L 34-122 H ALTv (test code = 1742-6) 15 U/L 5-50 AST(SGOT) (test code = 7350749477) 23 U/L 13-40 Lab Interpretation (test code = Abnormal 31340-5) [facility] CenterTroponin [id number] 23:00:00 Test Item Value Reference Range Interpretation Comments TROPONIN I (test 0.034 ng/mL See_Comment [Automated code = 0021814669) message] The system which generated this result transmitted reference range : <=0.034. The reference range was not used to interpret this result as normal/abnormal . DIANE (test code = Equal or Less than DIANE) 0.034 ng/ml---Normal ?Note: Cardiac troponin begins to rise 3-4 hours after the onset of ischemia. Repeat in 4-6 hours if the sample was drawn within 3-4 hours of the onset of the symptom and found normal. Between 0.035 and 0.120 ng/mL--- Borderline. Questionable myocardial injury or necrosis ? ?Note: Serial measurement may be necessary to confirm or exclude the diagnosis of myocardial injury or necrosis; Clinical correlation (symptoms, EKGs, imaging studies, and others) required; Repeat in 4-6 hours if clinically indicated. ? Equal or Higher than 0.121 ng/mL---Abnormal. Myocardial Injury or Necrosis Likely ? Biotin has been reported to cause a negative bias, interpret results relative to patient's use of biotin. ? Lab Interpretation Normal (test code = 21282-4) [facility] CenterN-TERMINAL [id number] 22:57:00 Test Item Value Reference Range Interpretation Comments NT-proBNP (test code 2300 pg/mL See_Comment H [Autom ated = 9795472700) message] The system which generated this result transmitted reference range : <=125. The reference range was not used to interpret this result as normal/abnormal . DIANE (test code = DIANE) Biotin has been reported to cause a negative bias, interpret results relative to patient's use of biotin. Lab Interpretation Abnormal (test code = 10894-3) [facility] CenteraPTT2020-09-14 22:53:00 Test Item Value Reference Range Interpretation Comments APTT Patient (test See_Comment [Automat ed code = 3173-2) message] The system which generated this result transmitted reference range : 23 - 38 Seconds . The reference range was not used to interpr et this result as normal/abnormal . DIANE (test code = DIANE) The [facility] patient population mean normal value for aPTT is 30 seconds. Lab Interpretation Normal (test code = 43217-5) [facility] CenterProthrombin Time (PT) / [id number] 22:51:00 Test Item Value Reference Range Interpretation Comments PROTIME PATIENT (test See_Comment H [Auto mated message] code = 5964-2) The system [employer] generated this result transmitted ref erence range: 12.0 - 1 4.7 Seconds. The reference range was not used to int erpret this result as normal/abnormal . INR (test code = 6301-6) Nor mal INR <1.1; Warfarin Therap eutic range 2.0 to 3. 0 or 2.5 to 3.5, dep ending upon the indica tions. Lab Interpretation (test Abnormal code = 42723-3) [facility] Metabolic Panel (NA, K, CL, CO2, GLUCOSE, BUN, CREATININE, CA)2020-02-03 22:48:00 Test Item Value Reference Range Interpretation Comments NA (test code = 139 mmol/L 135-145 5138429487) K (test code = 3.8 mmol/L 3.5-5 4203185380) CL (test code = 105 mmol/L 98-108 6081717011) CO2 TOTAL (test code = 23 mmol/L 23-31 0502964416) AGAP (test code = 2-16 9864479551) BUN (test code = 13 mg/dL 7-23 7901511263) GLUCOSE (test code = 223 mg/dL 70-110 H 1695876951) CREATININE (test code = 0.95 mg/dL 0.6-1.25 4137779456) CALCIUM (test code = 9.1 mg/dL 8.6-10.6 4383811540) eGFR Calculation mL/min/1.73m2 (Non-) (test code = 4298096529) eGFR Calculation mL/min/1.73m2 () (test code = 8191824676) DIANE (test code = DIANE) Association of Glomerular Filtration Rate (GFR) and Staging of Kidney Disease* + --+ --+ ------+| GFR (mL/min/1.73 m2) ?| With Kidney Damage ?| ?Without Kidney Damage+ --------+ --------+ +| ?>90 ?| ?Stage one ?| ? Normal ?+ ---+ ---+ -------+| ?60-89 ?| ?Stage two ?| ? Decreased GFR ? + --+ --+ ------+| ?30-59 ?| ?Stage three ?| ? Stage three ? + --+ --+ ------+| ?15-29 ?| ?Stage four ? | ? Stage four ?+ ---+ ---+ -------+| ?<15 (or dialysis) ? ?| ?Stage five ? | ? Stage five ?+ ---+ ---+ -------+ *Each stage assumes the associated GFR level has been in effect for at least three months. ?Stages 1 to 5, with or without kidney disease, indicate chronic kidney disease. Notes: Determination of stages one and two (with eGFR >59mL/min/1.73 m2) requires estimation of kidney damage for at least three months as defined by structural or functional abnormalities of the kidney, manifested by either:Pathological abnormalities or Markers of kidney damage (including abnormalities in the composition of the blood or urine or abnormalities in imaging tests). Lab Interpretation Abnormal (test code = 56496-4) [facility] CenterLipase [id number] 22:48:00 Test Item Value Reference Range Interpretation Comments LIPASE (test code = 5439491526) 180 U/L 0-220 Lab Interpretation (test code = Normal 42131-8) [facility] CenterCB with [id number] 22:37:00 Test Item Value Reference Range Interpretation Comments WBC (test code = See_Comment [Automated 4890-2) message] The sy stem which generated this result transmitted reference range : 4.20 - 10.70 10*3/?L. The reference range was not used to interpret this result as normal/abnormal . RBC (test code = See_Comment L [Automated 639-8) message] The sy stem which generated this result transmitted reference range : 4.26 - 5.52 10*6/?L. The reference range was not used to interpret this result as normal/abnormal . HGB (test code = 9.0 g/dL 12.2-16.4 L 718-7) HCT (test code = 27.2 % 38.4-49.3 L 4544-3) MCV (test code = 88.0 fL 81.7-95.6 787-2) MCH (test code = 29.1 pg 26.1-32.7 785-6) MCHC (test code = 33.1 g/dL 31.2-35 786-4) RDW-SD (test code = 43.7 fL 38.5-51.6 86465-1) RDW-CV (test code = 13.7 % 12.1-15.4 788-0) PLT (test code = See_Comment [Automated 777-3) message] The sy stem which generated this result transmitted reference range : 150 - 328 10*3/ ?L. The reference r batsheva was not used to interpret this result as normal/abnormal . MPV (test code = 9.7 fL 9.8-13 L 11518-5) NRBC/100 WBC (test See_Comment [Automat ed code = 9102133484) message] The system which generated this result transmitted reference range : 0.0 - 10.0 /100 WBCs. The refer ence range was not u sed to interpret th is result as normal/abnormal . NRBC x10^3 (test code <0.01 See_Comment [Auto mated = 2961011117) message] The s ystem which generated this result transmitted reference range : 10*3/?L. The reference range was not used to interpret this result as normal/abnormal . GRAN MAT (NEUT) % 55.9 % (test code = 770-8) IMM GRAN % (test code 0.40 % = 1372654235) LYMPH % (test code = 27.9 % 736-9) MONO % (test code = 11.4 % 5905-5) EOS % (test code = 4.0 % 713-8) BASO % (test code = 0.4 % 706-2) GRAN MAT x10^3(ANC) 3.86 10*3/uL 1.99-6.95 (test code = 1714921562) IMM GRAN x10^3 (test 0.03 10*3/uL 0-0.06 code = 4821241811) LYMPH x10^3 (test code 1.93 10*3/uL 1.09-3.23 = 731-0) MONO x10^3 (test code 0.79 10*3/uL 0.36-1.02 = 742-7) EOS x10^3 (test code = 0.28 10*3/uL 0.06-0.53 711-2) BASO x10^3 (test code 0.03 10*3/uL 0.01-0.09 = 704-7) Lab Interpretation Abnormal (test code = 17252-0) [facility]SE ([facility]2019-11-21 16:59:00 Test Item Value Reference Range Interpretation Comments POCT GLU (test code = 2145365832) 88 mg/dL 70-110 Lab Interpretation (test code = Normal 50223-0) [facility] GLUCOSE (AUTOMATED)2019-11-21 16:38:00 Test Item Value Reference Range Interpretation Comments POCT GLU (test code = 6779408229) 58 mg/dL 70-110 L Lab Interpretation (test code = Abnormal 49713-9) [facility] GLUCOSE (AUTOMATED)2019-11-21 16:10:00 Test Item Value Reference Range Interpretation Comments POCT GLU (test code = 8449506983) 83 mg/dL 70-110 Lab Interpretation (test code = Normal 49056-0) [facility] CenterVancomycin Trough Level - Draw immediately prior to the 0745 dose, but, no more than 60 minutes [id number] 14:02:00 Test Item Value Reference Range Interpretation Comments VANCO TROUGH (test code 15.5 ug/mL 10-20 = 1095701800) DIANE (test code = DIANE) Toxic Range: ?>20 ug/mL 15-20 ug/mL is recommended for severe infection or when Vancomycin MILLICENT is greater than or equal to 2. Lab Interpretation (test Normal code = 32432-5) [facility] GLUCOSE (AUTOMATED)2019-11-21 12:58:00 Test Item Value Reference Range Interpretation Comments POCT GLU (test code = 5513169204) 223 mg/dL 70-110 H Lab Interpretation (test code = Abnormal 61237-7) [facility] GLUCOSE (AUTOMATED)2019-11-21 00:49:00 Test Item Value Reference Range Interpretation Comments POCT GLU (test code = 4765225452) 178 mg/dL 70-110 H Lab Interpretation (test code = Abnormal 55828-3) [facility] GLUCOSE (AUTOMATED)2019-11-20 21:36:00 Test Item Value Reference Range Interpretation Comments POCT GLU (test code = 4300309963) 132 mg/dL 70-110 H Lab Interpretation (test code = Abnormal 51636-9) [facility] CenterXR CHEST 1 [id number] 21:28:25HISTORY: PICC line placement. TECHNIQUE: Portable AP erect view of the chest is obtained. Comparisonismade with 08/15/2019 study. FINDINGS: Right-sided PICC line noted with its tip at distal SVC level.Cardiac size is borderline enlarged. Bipolar permanent pacemaker insertedthrough left subclavian appeared to be in good position. Midline sternotomysutures from a thoracic surgery as well as cholecystectomy clips in theright upper abdomen noted. Multiple stents are seen in the LAD coronaryartery. No pneumonia or pneumothorax. No pleural effusion. CONCLUSIONS: Right-sided PICC line appears to be in good position.[facility], Radiant Results Inft User - 11/20/2019 4:29 PM CDTHISTORY: PICC line placement.TECHN IQUE: Portable AP erect view of the chest is obtained. Comparison ismade with 08/15/2019 study.FINDINGS: Right-sided PICC line noted with its tip at distal SVC level.Cardiac size is borderline enlarged.Bipolar permanent pacemaker insertedthrough left subclavian appeared to be in good position. Midline sternotomysutures from a thoracic surgery as well as cholecystectomy clips in theright upper abdomennoted. Multiple stents are seen in the LAD coronaryartery.No pneumonia or pneumothorax. No pleural effusion.CONCLUSIONS: Right-sided PICC line appears to be in good position.[facility] GLUCOSE (AUTOMATED)2019-11-20 16:04:00 Test Item Value Reference Range Interpretation Comments POCT GLU (test code = 6332893886) 113 mg/dL 70-110 H Lab Interpretation (test code = Abnormal 17482-5) [facility] GLUCOSE (AUTOMATED)2019-11-20 12:36:00 Test Item Value Reference Range Interpretation Comments POCT GLU (test code = 8663862257) 167 mg/dL 70-110 H Lab Interpretation (test code = Abnormal 30896-7) [facility] (NA, K, CL, CO2, GLUCOSE, BUN, CREATININE, CA)2019-11-20 09:59:00 Test Item Value Reference Range Interpretation Comments NA (test code = 136 mmol/L 135-145 9928238843) K (test code = 3.5 mmol/L 3.5-5 4672434145) CL (test code = 106 mmol/L 98-108 5367807850) CO2 TOTAL (test code = 25 mmol/L 23-31 0389266283) AGAP (test code = 2-16 4660713859) BUN (test code = 6 mg/dL 7-23 L 6681751783) GLUCOSE (test code = 242 mg/dL 70-110 H 8101409808) CREATININE (test code = 0.51 mg/dL 0.6-1.25 L 3218961586) CALCIUM (test code = 8.2 mg/dL 8.6-10.6 L 9006604387) eGFR Calculation mL/min/1.73m2 (Non-) (test code = 6889767735) eGFR Calculation mL/min/1.73m2 () (test code = 2880096141) DIANE (test code = DIANE) Association of Glomerular Filtration Rate (GFR) and Staging of Kidney Disease* + --+ --+ ------+| GFR (mL/min/1.73 m2) ?| With Kidney Damage ?| ?Without Kidney Damage+ --------+ --------+ +| ?>90 ?| ?Stage one ?| ? Normal ?+ ---+ ---+ -------+| ?60-89 ?| ?Stage two ?| ? Decreased GFR ? + --+ --+ ------+| ?30-59 ?| ?Stage three ?| ? Stage three ? + --+ --+ ------+| ?15-29 ?| ?Stage four ? | ? Stage four ?+ ---+ ---+ -------+| ?<15 (or dialysis) ? ?| ?Stage five ? | ? Stage five ?+ ---+ ---+ -------+ *Each stage assumes the associated GFR level has been in effect for at least three months. ?Stages 1 to 5, with or without kidney disease, indicate chronic kidney disease. Notes: Determination of stages one and two (with eGFR >59mL/min/1.73 m2) requires estimation of kidney damage for at least three months as defined by structural or functional abnormalities of the kidney, manifested by either:Pathological abnormalities or Markers of kidney damage (including abnormalities in the composition of the blood or urine or abnormalities in imaging tests). Lab Interpretation Abnormal (test code = 44251-0) [facility] WITH [id number] 09:13:00 Test Item Value Reference Range Interpretation Comments WBC (test code = See_Comment [Automated 6690-2) message] The sy stem which generated this result transmitted reference range : 4.20 - 10.70 10*3/?L. The reference range was not used to interpret this result as normal/abnormal . RBC (test code = See_Comment L [Automated 789-8) message] The sy stem which generated this result transmitted reference range : 4.26 - 5.52 10*6/?L. The reference range was not used to interpret this result as normal/abnormal . HGB (test code = 10.8 g/dL 12.2-16.4 L 718-7) HCT (test code = 31.1 % 38.4-49.3 L 4544-3) MCV (test code = 85.9 fL 81.7-95.6 787-2) MCH (test code = 29.8 pg 26.1-32.7 785-6) MCHC (test code = 34.7 g/dL 31.2-35 786-4) RDW-SD (test code = 42.2 fL 38.5-51.6 52141-2) RDW-CV (test code = 13.5 % 12.1-15.4 788-0) PLT (test code = See_Comment [Automated 777-3) message] The sy stem which generated this result transmitted reference range : 150 - 328 10*3/ ?L. The reference r batsheva was not used to interpret this result as normal/abnormal . MPV (test code = 10.2 fL 9.8-13 76673-9) NRBC/100 WBC (test See_Comment [Automat ed code = 2886390781) message] The system which generated this result transmitted reference range : 0.0 - 10.0 /100 WBCs. The refer ence range was not u sed to interpret th is result as normal/abnormal . NRBC x10^3 (test code <0.01 See_Comment [Auto mated = [id number]) message] The s ystem which generated this result transmitted reference range : 10*3/?L. The reference range was not used to interpret this result as normal/abnormal . GRAN MAT (NEUT) % 46.8 % (test code = 770-8) IMM GRAN % (test code 0.40 % = 3311986314) LYMPH % (test code = 35.7 % 736-9) MONO % (test code = 11.0 % 5905-5) EOS % (test code = 5.5 % 713-8) BASO % (test code = 0.6 % 706-2) GRAN MAT x10^3(ANC) 2.21 10*3/uL 1.99-6.95 (test code = 6644735880) IMM GRAN x10^3 (test <0.03 0-0.06 code = 5756778895) LYMPH x10^3 (test code 1.69 10*3/uL 1.09-3.23 = 731-0) MONO x10^3 (test code 0.52 10*3/uL 0.36-1.02 = 742-7) EOS x10^3 (test code = 0.26 10*3/uL 0.06-0.53 711-2) BASO x10^3 (test code 0.03 10*3/uL 0.01-0.09 = 704-7) Lab Interpretation Abnormal (test code = 19510-5) [facility] 01:39:00 Test Item Value Reference Range Interpretation Comments POCT GLU (test code = 4222014529) 227 mg/dL 70-110 H Lab Interpretation (test code = Abnormal 03113-4) [facility] BONE WHOLE BODY 3 [id number] 21:43:00 HISTORY: Rule out osteomyelitis in left calcaneum. ? TECHNIQUE: Three-phase bone scan of both lower extremities obtained with24.3 mCi of technetium 99 MDP. FINDINGS: LEFT CALCANEUM: Increased radiopharmaceutical activity seen in the flowimages, in the 3 min. blood pool images and in the delayed imagesover themedial aspect of the left calcaneum. Images of the whole body showed abnormal findings on the right side at L3,inhomogeneous activity over lower lumbar spines, likely caused bydegenerative changes as well as prior lumbar surgery. Degenerative changes suspected in right AC joint, right and leftsternoclavicular joints. Focal increased activity seen over the distal right femoral shaft, ofunknownetiology. Urinary bladder is deformed on the left side due to extrinsic pressure byfeces loaded sigmoid colon. CONCLUSIONS:1. Abnormal 3 phase bone scan imaging over the medial aspect of the leftcalcaneum, consistent with osteomyelitis.2. Increased activity over the distal shaft of right femur is of uncertainetiology, therefore, additional imaging requested, beginning with plainfilms of the right distal femur. [facility], Radiant Results Inft User - 11/19/2019 4:44 PM CDTHISTORY: Rule out osteomyelitisin left calcaneum. TECHNIQUE: Three-phase bone scan of both lower extremities obtained with24.3 mCi of technetium 99 MDP.FINDINGS:LEFT CALCANEUM: Increased radiopharmaceutical activity seen in the flowimages, in the 3 min. blood pool images and in the delayed images over themedial aspect of the left calcaneum.Images of the whole body showed abnormal findings on the right side at L3,inhomogeneous activity over lower lumbar spines, likely caused bydegenerative changes as well as prior lumbar surgery.Degenerative changes suspected in right AC joint, right and leftsternoclavicular joints.Focal increased activity seen over the distal right femoral shaft, ofunknown etiology.Urinary bladder is deformed on the left side due to extrinsic pressure byfeces loaded sigmoid colon.CONCLUSIONS:1. Abnormal 3 phase bone scan imaging over the medial aspect of the leftcalcaneum, consistent with osteomyelitis.2. Increased activity over the distal shaft of right femur is of uncertainetiology, therefore, additional imaging requested, beginning with plainfilms of the right distal femur.[facility] 16:15:00 Test Item Value Reference Range Interpretation Comments POCT GLU (test code = 2872119755) 101 mg/dL 70-110 Lab Interpretation (test code = Normal 77168-3) [facility] - Draw no more than 60 minutes before the 0745 dose.2019-11-19 14:11:00 Test Item Value Reference Range Interpretation Comments VANCO TROUGH (test code 11.8 ug/mL -20 = 8697224901) DIANE (test code = DIANE) Toxic Range: ?>20 ug/mL 15-20 ug/mL is recommended for severe infection or when Vancomycin MILLICENT is greater than or equal to 2. Lab Interpretation (test Normal code = 80024-9) [facility]2019-11-19 12:52:00 Test Item Value Reference Range Interpretation Comments POCT GLU (test code = 7071206491) 146 mg/dL 70-110 H Lab Interpretation (test code = Abnormal 23327-2) [facility] GLUCOSE (AUT[facility]ATED)2019-11-19 01:17:00 Test Item Value Reference Range Interpretation Comments POCT GLU (test code = 8737409507) 228 mg/dL 70-110 H Lab Interpretation (test code = Abnormal 37212-8) [facility] GLUCOSE (AUTOMATED)2019-11-18 20:46:00 Test Item Value Reference Range Interpretation Comments POCT GLU (test code = 6421400546) 82 mg/dL 70-110 Lab Interpretation (test code = Normal 77755-6) [facility] GLUCOSE (AUTOMATED)2019-11-18 16:27:00 Test Item Value Reference Range Interpretation Comments POCT GLU (test code = 2015472887) 115 mg/dL 70-110 H Lab Interpretation (test code = Abnormal 50586-7) [facility] GLUCOSE (AUTOMATED)2019-11-18 12:29:00 Test Item Value Reference Range Interpretation Comments POCT GLU (test code = 9676645208) 137 mg/dL 70-110 H Lab Interpretation (test code = Abnormal 33525-0) [facility] ABDOMEN PELVIS W [id number] 02:28:32 1.5 cm metallic structure, possible ingested foreign body, in the sigmoidcolon without complication. 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 Ultrasound evaluationcould be performed for confirmation. Preliminary Report Dictated by Resident: Pacheco Kulkarni MD., have rev iewed this study and agree with the abovereport.CT ABDOMEN AND PELVIS WITH CONTRAST HISTORY: abdominal pain COMPARISON: Multiple prior exams dating back to 09/18/2018, most recently09/15/2019 TECHNIQUE:Contiguous axial imaging from the level of the lung basesthrough the pubic symphysis was performed after the administration of 120cc of intravenous Omnipaque contrast. Coronal and sagittal reconstructionswere obtained. FINDINGS: LOWER THORAX: Chest wall pacemaker leads are partially visualized with thetip at the apex of the right ventricle, unchanged in position from priorstudies dated back to 09/18/2018. Unchanged 1.3 cm subpleural nodularity inthe right lung base with surrounding groundglass attenuation. Bibasilarsubsegmental atelectasis. LIVER: No focal lesions. No biliary ductal dilation. GALLBLADDER: Status post cholecystectomy. No biliary ductal dilation. SPLEEN: No splenomegaly. PANCREAS: No ductal dilation or masses. ADRENAL GLANDS: No adrenal nodules. KIDNEYS: No hydronephrosis, stones, or solid masses. Unchanged 3.1 cmsimple cyst at the right interpolar region. Additional subcentimetercortical hypodensities in both kidneys are too small to characterize.Bilateral perinephric stranding,nonspecific. PERITONEUM AND RETROPERITONEUM: No free air or fluid. LYMPH NODES: No lymphadenopathy. GI TRACT: No dilation or wall thickening. Normal appendix. Punctatemetallic density in the sigmoid colon on 2:114 was not previously seen andmay represent ingested foreign body or medicine tablet. PELVIS: The urinary bladder is distended with contrast material within thebladder lumen and without filling defects. The prostate is unremarkable. VESSELS: Moderate diffuse atherosclerotic disease. There is earlyopacification of the right common femoral vein and apparent retrogradeopacification of its tributaries. Surgical clips are noted in the regionfrom prior vascular access. BONES AND SOFT TISSUES: No aggressive or suspicious osseous lesions.Spondylotic spondylosis and mild reversal of the normal lumbar lordosiswith laminectomy decompression changes and posterior spinal fusion hardwarespanning L4-S1 with L5-S1, transpedicle screw with streak artifact limitingregional evaluation. Facet arthropathy inthe thoracolumbar spine withprominent syndesmophytes. Unchanged chronic post bone harvest deformitiesof the iliac bones, more prominent on the right side. [facility], Radiant Results Inft User - 11/17/2019 9:29 PM CDTCT ABDOMEN AND PELVIS WITH CONTRASTHISTORY: abdominal pain COMPARISON: Multiple prior exams dating back to 09/18/2018, most recently09/15/2019TECHNIQUE: Contiguous axial imaging from the level of the lung basesthrough the pubic symphysis was performed after the administration of 120cc of intravenous Omnipaque contrast. Coronal and sagittal reconstructionswere obtained.FINDINGS:LOWER THORAX: Chest wall pacemaker leads are partially visualized with thetip at the apex of the right ventricle, unc hanged in position from priorstudies dated back to 09/18/2018. Unchanged 1.3 cm subpleural nodularityinthe right lung base with surrounding groundglass attenuation. Bibasilarsubsegmental atelectasis.LIVER: No focal lesions. No biliary ductal dilation.GALLBLADDER: Status post cholecystectomy. No biliary ductal dilation. SPLEEN: No splenomegaly.PANCREAS: No ductal dilation or masses.ADRENAL GLANDS: No adrenal nodules.KIDNEYS: No hydronephrosis, stones, or solid masses. Unchanged 3.1 cmsimple cyst at the right interpolar region. Additional subcentimetercortical hypodensities in both kidneys are too small to characterize.Bilateral perinephric stranding, nonspecific.PERITONEUM AND RETROPERITONEUM: No free air or fluid.LYMPH NODES: No lymphadenopathy.GI TRACT: No dilation or wall thickening. Normal appendix. Punctatemetallic density in the sigmoid colon on 2:114 was not previously seen andmay represent ingested foreign body or medicine tablet.PELVIS: The urinary bladder is distended with contrast material within thebladder lumen and without filling defects. The prostate is unremarkable.VESSELS: Moderate diffuse atherosclerotic disease. There is earlyopacification of the right common femoral vein and apparent retrogradeopacification of its tributaries. Surgical clips are noted in the regionfrom prior vascular access.BONES AND SOFT TISSUES: No aggressive or suspicious osseous lesions.Spondylotic spondylosis and mild reversal of the normal lumbar lordosiswith laminectomy decompression changes and posterior spinal fusion hardwarespanning L4-S1 with L5-S1, transpedicle screw with streak artifact limitingregional evaluation. Facet arthropathy in the thoracolumbar spine withprominent syndesmophytes. Unchanged chronic post bone harvest deformitiesof the iliac bones, more prominent on the right side.IMPRESSION1.5 cm metallic structure, possible ingested foreign body, in the sigmoidcolon without complication. 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 Ultrasound evaluationcould be performed for confirmation.Preliminary Report Dictated by Resident: Pacheco Heaton MD., have reviewed this study and agree with the abovereport.[facility] 01:40[facility]00 Test Item Value Reference Range Interpretation Comments POCT GLU (test code = 3400605692) 102 mg/dL 70-110 Lab Interpretation (test code = Normal 04403-5) [facility]SE [facility]2019-11-17 21:14:00 Test Item Value Reference Range Interpretation Comments POCT GLU (test code = 3775754756) 171 mg/dL 70-110 H Lab Interpretation (test code = Abnormal 70072-2) [facility] GLUCOSE (AUTOMATED)2019-11-17 16:18:00 Test Item Value Reference Range Interpretation Comments POCT GLU (test code = 8409581284) 131 mg/dL 70-110 H Lab Interpretation (test code = Abnormal 27032-9) [facility] FOOT LEFT W [id number] 15:36:38 Soft tissue swelling and heel pad ulceration with no CT findings ofosteomyelitis. If suspicion for osteomyelitis is high, MRI is recommended as thediagnostic imaging modality of choice. Preliminary Report Dictated by Resident: Sergio Thomas I, Froy Friedman MD., have reviewed this study and agree with the abovereport.CT FOOT LEFT W CONTRAST HISTORY: 59 years-old; Male; Left heel wound, evaluate for osteomyelitis COMPARISON: Left foot CT 04/09/2019; left ankle radiographs 11/16/2019 TECHNIQUE: CT imaging of the left foot tissues and bones is obtained in 3.0mm intervals with IV contrast. Sagittal and coronal reconstructions aregenerated and reviewed. BONE: A corticated osseous fragment distal to the tip of medial malleolus isrelated to a remote avulsion fracture. Posttraumatic cortical proliferationis seen along the medial talar body at the deep fiber deltoid ligamentinsertion.There is no focal osteopenia, periosteal reaction or erosive changes alongthe plantar or posterior aspect of the calcaneus. A remote medial malleolusavulsion is present. SOFT TISSUES: Subcutaneous fat stranding is notedat the heel pad medially with a 1.1 cmdepth skin defect/ulcer along the medial heel pad. [facility], Radiant Results Inft User - 11/17/2019 10:37 AM CDTCT FOOT LEFT W CONTRASTHISTORY: 59 years-old; Male; Left heel wound, evaluate for osteomyelitis COMPARISON: Left foot CT 04/09/2019; left ankle radiographs11/16/2019TECHNIQUE: CT imaging of the left foot tissues and bones is obtained in 3.0mm intervals with IV contrast. Sagittal and coronal reconstructions aregenerated and reviewed.BONE:A corticated osseous fragment distal to the tip of medial malleolus isrelated to a remote avulsion fracture. Posttraumatic cortical proliferationis seen along the medial talar body at the deep fiber deltoid ligamentinsertion.There is no focal osteopenia, periosteal reaction or erosive changes alongthe plantar or posterior aspect of the calcaneus. A remote medial malleolusavulsion is present.SOFT TISSUES:Subcutaneous fat stranding is noted at the heel pad medially with a 1.1 cmdepth skin defect/ulcer along the medial heel pad.IMPRESSIONSoft tissue swelling and heel pad ulceration with no CT findings ofosteomyelitis.Ifsuspicion for osteomyelitis is high, MRI is recommended as thediagnostic imaging modality of choice.Preliminary Report Dictated by Resident: Froy Feldman MD., have reviewed this study and agree with the abovereport.[facility] GLUCOSE (AUTOMATED)2019-11-17 12:32:00 Test Item Value Reference Range Interpretation Comments POCT GLU (test code = 2361353893) 120 mg/dL 70-110 H Lab Interpretation (test code = Abnormal 84288-3) [facility] GLUCOSE (AUTOMATED)2019-11-17 04:19:00 Test Item Value Reference Range Interpretation Comments POCT GLU (test code = 5385193428) 234 mg/dL 70-110 H Lab Interpretation (test code = Abnormal 42157-7) [facility] Whole [id number] 03:08:00 Test Item Value Reference Range Interpretation Comments LACTIC ACID (test code = 2.00 mmol/L 0.3-2.6 4005378508) Lab Interpretation (test code = Normal 62663-3) [facility] CenterGlycosylated Hemoglobin (A1C)2019-11-17 03:01:00 Test Item Value Reference Interpretation Comments Range HGB A1C (test code = See_Comment H [Autom ated 4548-4) message] The system which generated this result transmitted reference range : 4.0 - 6.0 % NGSP. The reference range was not used to interpret this result as normal/abnormal . DIANE (test code = %A1C (NGSP) DIANE) Interpretation (ADA)4.8-5.6 ? ? Normal or (Non-Diabetic Range)5.7-6.4 ? ? Increased Risk (Pre-Diabetic)>6.5 ?Diabetes Indicated Lab Interpretation Abnormal (test code = 97043-3) [facility]2019-11-17 01:10:00 Test Item Value Reference Range Interpretation Comments POCT GLU (test code = 4306533673) 334 mg/dL 70-110 H Lab Interpretation (test code = Abnormal 40908-6) [facility] CenterXR [facility]+ VW [id number] 23:59:27 Heel pad ulceration with no radiograph findings of osteomyelitis. Froy Franco MD., have reviewed this study and agree with the abovereport.EXAM: XR ANKLE 3+ VW LEFT HISTORY: left heel ulcer/infection; evaluate for gas, bony erosion COMPARISON: March 2019 FINDINGS: Imaging of the ankle demonstrates a heel pad ulceration approximately 1.1cm in depth with no underlying bony abnormality. Dif fuse swelling ispresent. Diabetic type vascular calcifications are present. A remote medialmalleolusavulsion is noted. Posttraumatic cortical proliferation of thelateral malleolus is seen. Intertarsalosteophytosis is seen. [facility], Radiant Results Inft User - 11/16/2019 7:00 PM CDTEXAM:XR ANKLE 3+ VW LEFTHISTORY:left heel ulcer/infection; evaluate for gas, bony erosion COMPARISON:March 2019FINDINGS: Imaging of the ankle demonstrates a heel pad ulceration approximately 1.1cm in depth with no underlying bony abnormality. Diffuse swelling ispresent. Diabetic type vascular calcifications are present. A remote medialmalleolus avulsion is noted. Posttraumatic cortical proliferation of thelateral malleolus is seen. Intertarsal osteophytosis is seen.IMPRESSIONHeel pad ulceration with no radiograph findings of osteomyelitis.Froy Franco MD., have reviewed this study and agree with the abovereport.[facility] CenterCOVID[facility] (ID NOW RAPID TESTING)2019-11-16 23:10:00 Test Item Value Reference Range Interpretation Comments SARS-CoV-2 Rapid ID NOW Not Detected Not Detected (test code = 49062-1) DIANE (test code = DIANE) ID NOW COVID-19 Assay is an isothermal nucleic acid amplification test intended for the qualitative detection of nucleic acid from SARS-CoV-2 viral RNA in nasopharyngeal (STRAIGHTENING MACHINE OPERATOR) specimens. It is used under Emergency Use Authorization (EUA) by FDA. The limit of detection (LOD) of the assay is 125 Genome Equivalents/mL. A positive result is indicative of the presence of SARS-CoV-2 RNA. ?Clinical correlation with patient history and other diagnostic [...] for repeat patient testing if clinically indicated. Lab Interpretation Normal (test code = 46565-9) [facility] Metabolic Panel (NA, K, CL, CO2, GLUCOSE, BUN, CREATININE, CA)2019-11-16 22:50:00 Test Item Value Reference Range Interpretation Comments NA (test code = 137 mmol/L 135-145 7767991260) K (test code = 4.1 mmol/L 3.5-5 0856018963) CL (test code = 101 mmol/L 98-108 1313978011) CO2 TOTAL (test code = 23 mmol/L 23-31 5514824848) AGAP (test code = 2-16 7129541581) BUN (test code = 12 mg/dL 7-23 1041829382) GLUCOSE (test code = 479 mg/dL 70-110 HH 6945420603) CREATININE (test code = 0.78 mg/dL 0.6-1.25 6831116999) CALCIUM (test code = 9.4 mg/dL 8.6-10.6 3941641911) eGFR Calculation mL/min/1.73m2 (Non-) (test code = 0398500091) eGFR Calculation mL/min/1.73m2 () (test code = 5965289685) DIANE (test code = DIANE) Association of Glomerular Filtration Rate (GFR) and Staging of Kidney Disease* + --+ --+ ------+| GFR (mL/min/1.73 m2) ?| With Kidney Damage ?| ?Without Kidney Damage+ --------+ --------+ +| ?>90 ?| ?Stage one ?| ? Normal ?+ ---+ ---+ -------+| ?60-89 ?| ?Stage two ?| ? Decreased GFR ? + --+ --+ ------+| ?30-59 ?| ?Stage three ?| ? Stage three ? + --+ --+ ------+| ?15-29 ?| ?Stage four ? | ? Stage four ?+ ---+ ---+ -------+| ?<15 (or dialysis) ? ?| ?Stage five ? | ? Stage five ?+ ---+ ---+ -------+ *Each stage assumes the associated GFR level has been in effect for at least three months. ?Stages 1 to 5, with or without kidney disease, indicate chronic kidney disease. Notes: Determination of stages one and two (with eGFR >59mL/min/1.73 m2) requires estimation of kidney damage for at least three months as defined by structural or functional abnormalities of the kidney, manifested by either:Pathological abnormalities or Markers of kidney damage (including abnormalities in the composition of the blood or urine or abnormalities in imaging tests). Lab Interpretation Abnormal (test code = 22776-4) [facility] WITH [id number] 22:33:00 Test Item Value Reference Range Interpretation Comments WBC (test code = See_Comment [Automated 4517-2) message] The sy stem which generated this result transmitted reference range : 4.20 - 10.70 10*3/?L. The reference range was not used to interpret this result as normal/abnormal . RBC (test code = See_Comment L [Automated 278-8) message] The sy stem which generated this result transmitted reference range : 4.26 - 5.52 10*6/?L. The reference range was not used to interpret this result as normal/abnormal . HGB (test code = 12.2 g/dL 12.2-16.4 718-7) HCT (test code = 35.1 % 38.4-49.3 L 4544-3) MCV (test code = 86.0 fL 81.7-95.6 787-2) MCH (test code = 29.9 pg 26.1-32.7 785-6) MCHC (test code = 34.8 g/dL 31.2-35 786-4) RDW-SD (test code = 40.9 fL 38.5-51.6 43215-1) RDW-CV (test code = 13.1 % 12.1-15.4 788-0) PLT (test code = See_Comment [Automated 777-3) message] The sy stem which generated this result transmitted reference range : 150 - 328 10*3/ ?L. The reference r batsheva was not used to interpret this result as normal/abnormal . MPV (test code = 9.9 fL 9.8-13 99543-8) NRBC/100 WBC (test See_Comment [Automat ed code = 1923827220) message] The system which generated this result transmitted reference range : 0.0 - 10.0 /100 WBCs. The refer ence range was not u sed to interpret th is result as normal/abnormal . NRBC x10^3 (test code <0.01 See_Comment [Auto mated = 8330503328) message] The s ystem which generated this result transmitted reference range : 10*3/?L. The reference range was not used to interpret this result as normal/abnormal . GRAN MAT (NEUT) % 62.2 % (test code = 770-8) IMM GRAN % (test code 0.40 % = 7170683211) LYMPH % (test code = 28.0 % 736-9) MONO % (test code = 6.9 % 5905-5) EOS % (test code = 2.2 % 713-8) BASO % (test code = 0.3 % 706-2) GRAN MAT x10^3(ANC) 4.30 10*3/uL 1.99-6.95 (test code = 2190990718) IMM GRAN x10^3 (test 0.03 10*3/uL 0-0.06 code = 1112773257) LYMPH x10^3 (test code 1.94 10*3/uL 1.09-3.23 = 731-0) MONO x10^3 (test code 0.48 10*3/uL 0.36-1.02 = 742-7) EOS x10^3 (test code = 0.15 10*3/uL 0.06-0.53 711-2) BASO x10^3 (test code <0.03 0.01-0.09 = 704-7) Lab Interpretation Abnormal (test code = 19518-8) [facility] CenterL[facility] Whole [id number] 22:19:00 Test Item Value Reference Range Interpretation Comments LACTIC ACID (test code = 3.67 mmol/L 0.3-2.6 9045566085) [facility] [id number] 03:22:58 1. ?Mild mural thickening and mucosal enhancement of the rectum and sigmoidcolon are concerning michael infectious/inflammatory colitis. 2. ?The shirley of the urinary bladder prominent. Recommend correlation withurinalysis for further evaluation. Preliminary Report Dictated by Resident: Sekou Bonilla ?MD Gigi., have reviewed this study and agree with the abovereport.CT ABDOMEN PELVIS W CONTRAST HISTORY: Abd pain, acute, generalized . Per chart review, intermittent,diffuse abdominal pain x2 months with severe vomiting and diarrhea x2 days. COMPARISON: CT abdomen and pelvis 08/15/2019. DOSE: 393 mGycm TECHNIQUE AND FINDINGS: Contiguous axial imaging from the level of the lungbases throughthe pubic symphysis was performed after the administration of120 cc of intravenous Omnipaque contrast. Coronal and sagittalreconstructions were obtained. ?Auto mA and/or iterative reconstructionwere used to reduce radiation dose. FINDINGS: LOWER THORAX: There is subsegmental atelectasis of the right lo wer lobe. A1.6 cm area of round glass attenuation in the right lung base (2:18) isunchanged from multiple previous exams dating back to 09/18/2018 and likelyrelated to scarring. No cardiomegaly. Pacemaker leads are partially visualized, terminating inthe right atrium and right ventricle. LIVER: Decreased attenuation of the liver is suggestive of fattyinfiltration. No focal hepatic lesions. ?Normal contour. GALLBLADDER AND BILIARY TREE: Postsurgical changes of cholecystectomy. Thecommon bile duct is within normal limits. SPLEEN: No splenomegaly. PANCREAS: No ductal dilation or masses. ADRENAL GLANDS:No adrenal nodules. KIDNEYS: Scattered hypodensities in both kidneys are unchanged. The largestmeasures 2.7 cm in the right interpolar region with attenuation isconsistent with a simple cyst. The ureters are unremarkable. PERITONEUM AND RETROPERITONEUM: No free air or fluid. LYMPH NODES: No lymphadenopathy. GI TRACT: There is mild circumferential thickening and mucosal enhancementof the rectum and sigmoid colon. PELVIS/BLADDER: Urinary bladder is partially decompressed. However, thewalls of the domeof the urinary bladder are thickened (2:142, 6:66). The prostate is prominent in size. VESSELS: Unremarkable. BONES AND SOFT TISSUES: Moderate degenerative changes of the visualizedspine. Posterior fusion hardware is noted in the L4-L5 intervals. Nosuspicious lytic or blastic skeletal lesions. Small fat filled inguinal hernias are present bilaterally. Also seen is asmall umbilical hernia with herniation of fat. [facility], Radiant Results Inft User - 09/17/2019 10:24 PM CDTCT ABDOMEN PELVIS W CONTRAST HISTORY: Abd pain, acute, generalized . Per chart review, intermittent,diffuse abdominal pain x2 months with severe vomiting and diarrhea x2 days.COMPARISON: CT abdomen and pelvis 08/15/2019.DOSE: 393 mGycmTECHNIQUE AND FINDINGS: Contiguous axial imaging from the level of the lungbases through the pubic sym physis was performed after the administration of120 cc of intravenous Omnipaque contrast. Coronal and sagittalreconstructions were obtained. Auto mA and/or iterative reconstructionwere used to reduce radiation dose.FINDINGS:LOWER THORAX: There is subsegmental atelectasis of the right lower lobe. A1.6cm area of round glass attenuation in the right lung base (2:18) isunchanged from multiple previous exams dating back to 09/18/2018 and likelyrelated to scarring.No cardiomegaly. Pacemaker leads are partially visualized, terminating inthe right atrium and right ventricle.LIVER: Decreased attenuation ofthe liver is suggestive of fattyinfiltration. No focal hepatic lesions. Normal contour.GALLBLADDER AND BILIARY TREE: Postsurgical changes of cholecystectomy. Thecommon bile duct is within normal limits.SPLEEN: No splenomegaly.PANCREAS: No ductal dilation or masses.ADRENAL GLANDS: No adrenal nodules.KIDNEYS: Scattered hypodensities in both kidneys are unchanged. The largestmeasures 2.7 cm in the right interpolar region with attenuation isconsistent with a simple cyst.The ureters are unremarkable.PERITONEUM AND RETROPERITONEUM: No free air or fluid.LYMPH NODES: No lymphadenopathy.GI TRACT: There is mild circumferential thickening and mucosal enhancementof the rectum and sigmoid colon.PELVIS/BLADDER: Urinary bladder is partially decompressed. However, thewalls of the dome of the urinary bladder arethickened (2:142, 6:66).The prostate is prominent in size.VESSELS: Unremarkable.BONES AND SOFT TISSUES: Moderate degenerative changes of the visualizedspine. Posterior fusion hardware is noted in the L4-L5 intervals. Nosuspicious lytic or blastic skeletal lesions.Small fat filled inguinal hernias are present bilaterally. Also seen is asmall umbilical hernia with herniation of fat.IMPRESSION1. Mild mural thickening and mucosal enhancement of the rectum and sigmoidcolon are concerning for an infectious/inflammatory colitis.2. The shirley of the urinary bladder prominent. Recommend correlation withurinalysis for further evaluation.Preliminary Report Dictated by Resident: Sekou Ly MD., have reviewed this study and agree with the abovereport.[facility] CenterCORONAVIRUS COVID-19 [id number] 02:08:00 Test Item Value Reference Range Interpretation Comments SARS-CoV-2 (test code = Not Detected Not Detected 33495-6) DIANE (test code = DIANE) ID NOW COVID-19 Assay is an isothermal nucleic acid amplification test intended for the qualitative detection of nucleic acid from SARS-CoV-2 viral RNA in nasopharyngeal (STRAIGHTENING MACHINE OPERATOR) specimens. It is used under Emergency Use Authorization (EUA) by FDA. The limit of detection (LOD) of the assay is 125 Genome Equivalents/mL. A positive result is indicative of the presence of SARS-CoV-2 RNA. ?Clinical correlation with patient history and other diagnostic information is necessary to determine patient infection status. A negative (Not Detected) result does not preclude SARS-CoV-2 infection. Clinical correlation with patient history and other diagnostic information should be used in patient management decisions. Invalid: Please collect a new specimen for repeat patient testing if clinically indicated. Lab Interpretation Normal (test code = 30388-6) [facility] CenterComplete Metabolic [id number] 02:04:00 Test Item Value Reference Range Interpretation Comments NA (test code = 138 mmol/L 135-145 9587193751) K (test code = 3.4 mmol/L 3.5-5 L 8012857861) CL (test code = 104 mmol/L 98-108 9898426183) CO2 TOTAL (test code = 20 mmol/L 23-31 L 6411041854) AGAP (test code = 2-16 5019486340) BUN (test code = 11 mg/dL 7-23 8510252187) GLUCOSE (test code = 282 mg/dL 70-110 H 3701046291) CREATININE (test code = 1.00 mg/dL 0.6-1.25 3932460430) TOTAL BILI (test code = 0.5 mg/dL 0.1-1.4 4955487720) CALCIUM (test code = 9.6 mg/dL 8.6-10.6 5702539514) T PROTEIN (test code = 7.7 g/dL 6.3-8.2 6880782983) ALBUMIN (test code = 4.4 g/dL 3.5-5 8293675734) ALK PHOS (test code = 121 U/L 34-122 2789273586) ALTv (test code = 15 U/L 5-50 1742-6) AST(SGOT) (test code = 22 U/L 13-40 5134839370) eGFR Calculation mL/min/1.73m2 (Non-) (test code = 5505905521) eGFR Calculation mL/min/1.73m2 () (test code = 2535705889) DIANE (test code = DIANE) Association of Glomerular Filtration Rate (GFR) and Staging of Kidney Disease* + --+ --+ ------+| GFR (mL/min/1.73 m2) ?| With Kidney Damage ?| ?Without Kidney Damage+ --------+ --------+ +| ?>90 ?| ?Stage one ?| ? Normal ?+ ---+ ---+ -------+| ?60-89 ?| ?Stage two ?| ? Decreased GFR ? + --+ --+ ------+| ?30-59 ?| ?Stage three ?| ? Stage three ? + --+ --+ ------+| ?15-29 ?| ?Stage four ? | ? Stage four ?+ ---+ ---+ -------+| ?<15 (or dialysis) ? ?| ?Stage five ? | ? Stage five ?+ ---+ ---+ -------+ *Each stage assumes the associated GFR level has been in effect for at least three months. ?Stages 1 to 5, with or without kidney disease, indicate chronic kidney disease. Notes: Determination of stages one and two (with eGFR >59mL/min/1.73 m2) requires estimation of kidney damage for at least three months as defined by structural or functional abnormalities of the kidney, manifested by either:Pathological abnormalities or Markers of kidney damage (including abnormalities in the composition of the blood or urine or abnormalities in imaging tests). Lab Interpretation Abnormal (test code = 69544-3) [facility] CenterLipase, [id number] 02:04:00 Test Item Value Reference Range Interpretation Comments LIPASE (test code = 5310955198) 157 U/L 0-220 Lab Interpretation (test code = Normal 44758-2) [facility] CenterCBC WITH [id number] 01:53:00 Test Item Value Reference Range Interpretation Comments WBC (test code = See_Comment [Automated 5890-2) message] The sy stem which generated this result transmitted reference range : 4.20 - 10.70 10*3/?L. The reference range was not used to interpret this result as normal/abnormal . RBC (test code = See_Comment L [Automated 179-8) message] The sy stem which generated this result transmitted reference range : 4.26 - 5.52 10*6/?L. The reference range was not used to interpret this result as normal/abnormal . HGB (test code = 12.5 g/dL 12.2-16.4 718-7) HCT (test code = 35.0 % 38.4-49.3 L 4544-3) MCV (test code = 86.0 fL 81.7-95.6 787-2) MCH (test code = 30.7 pg 26.1-32.7 785-6) MCHC (test code = 35.7 g/dL 31.2-35 H 786-4) RDW-SD (test code = 38.7 fL 38.5-51.6 22471-5) RDW-CV (test code = 12.4 % 12.1-15.4 788-0) PLT (test code = See_Comment [Automated 077-3) message] The sy stem which generated this result transmitted reference range : 150 - 328 10*3/ ?L. The reference r batsheva was not used to interpret this result as normal/abnormal . MPV (test code = 9.8 fL 9.8-13 29943-7) NRBC/100 WBC (test See_Comment [Automat ed code = 8413940267) message] The system which generated this result transmitted reference range : 0.0 - 10.0 /100 WBCs. The refer ence range was not u sed to interpret th is result as normal/abnormal . NRBC x10^3 (test code <0.01 See_Comment [Auto mated = 4738306619) message] The s ystem which generated this result transmitted reference range : 10*3/?L. The reference range was not used to interpret this result as normal/abnormal . GRAN MAT (NEUT) % 62.2 % (test code = 770-8) IMM GRAN % (test code 0.50 % = 1322498044) LYMPH % (test code = 27.3 % 736-9) MONO % (test code = 7.4 % 5905-5) EOS % (test code = 2.2 % 713-8) BASO % (test code = 0.4 % 706-2) GRAN MAT x10^3(ANC) 5.12 10*3/uL 1.99-6.95 (test code = 9986083320) IMM GRAN x10^3 (test 0.04 10*3/uL 0-0.06 code = 9026958894) LYMPH x10^3 (test code 2.24 10*3/uL 1.09-3.23 = 731-0) MONO x10^3 (test code 0.61 10*3/uL 0.36-1.02 = 742-7) EOS x10^3 (test code = 0.18 10*3/uL 0.06-0.53 711-2) BASO x10^3 (test code 0.03 10*3/uL 0.01-0.09 = 704-7) Lab Interpretation Abnormal (test code = 73344-3) [facility] GLUCOSE (AUTOMATED)2019-08-15 19:47:00 Test Item Value Reference Range Interpretation Comments POCT GLU (test code = 2076568357) 294 mg/dL 70-110 H Lab Interpretation (test code = Abnormal 20325-5) [facility] CenterCT ABDOMEN PELVIS W [id number] 19:14:56CT Abdomen and Pelvis with intravenous contrast. CLINICAL HISTORY: Acute generalized abdominal pain.Constipation. DOSE: Up-to-date CT equipment and radiation dose reduction techniques wereemployed. CTDIvol: 6.65 mGy. DLP: 348 mGy-cm. TECHNIQUE : Contiguous axial imaging from the level of the lung bas esthrough the pubic symphysis were performed after the uncomplicatedadministration of Omnipaque contrast material. ?Coronal and sagittalreconstructions were obtained. Auto mA and/or iterative reconstruction wereused to reduce radiation dose. FINDINGS: Comparison has been made with 07/18/2019 studies. Lower lungs: Unchanged hazy increased markings in the costophrenic sinusregion the right lower lung and minimal fibrosis in the anterior basalsegment of right lower lung. Open thoracic surgical changes and permanentpacemaker is noted. No hiatal hernia. Liver, Gallbladder and Spleen: S/P cholecystectomy.Liver is qayfscqrnyeeb86.9 cm and spleen is 10 x 5 cm. Biliary ducts and the pancreatic duct arenot dilated. Peritoneum: ?No free air or free fluid. No lymphadenopathy. Pancreas and Adrenals: ?Unremarkable pancreas and adrenal glands. Kidneys and Ureters: ?No visible calculi in the renal collecting systems. No hydroureter or hydronephrosis. 3.1 cm cyst in the anterior cortex nearthe hilum of the right kidney, 2 subcentimeter cysts in the lower leftkidney noted. Vessels: Mild atherosclerosis. Retroperitoneum: No abnormal fluid or lymphadenopathy. Bowel: Stomach is distended with fluid and food. Otherwise intestinal gaspattern is normal. Normal appendix is visualized. No significant fecalretention seen. Bladder and Reproductive Organs: Grossly unremarkable unopacified urinarybladder. Bones: Changesof lower lumbar surgery, trauma or to vertebral endplates ofthe lower thoracic and lumbar vertebral b odies. Disc osteophyte complex andfacet arthritis causing spinal stenosis at L2- L3, T7-T8 and T8-T9 levels. Soft tissues: Small fat-containing bilateral inguinal hernia, slightlylarger on the right side. CONCLUSION: 1. No acute intra-abdominal or pelvic abnormalities detected. Nosignificant fecal reten tion.2. S/P cholecystectomy and lower lumbar surgery.3. No new findings when compared with recent CTscan of 07/18/2019 exceptfor slightly distended stomach from fluid and food material. Please seeadditional details above. [facility], Radiant Results Inft User - 08/15/2019 2:15 PM CDTCT Abdomen and Pelviswith intravenous contrast.CLINICAL HISTORY: Acute generalized abdominal pain. Constipation.DOSE: Up-to-date CT equipment and radiation dose reduction techniques wereemployed. CTDIvol: 6.65 mGy. DLP: 348 mGy-cm.TECHNIQUE : Contiguous axial imaging from the level of the lung basesthrough the pubic symphysis were performed after the uncomplicatedadministration of Omnipaque contrast material. Coronal and sagittalreconstructions were obtained. Auto mA and/or iterative reconstruction wereused to reduce radiation dose.FINDINGS: Comparison has been made with 07/18/2019 studies.Lower lungs: Unchanged hazy in creased markings in the costophrenic sinusregion the right lower lung and minimal fibrosis in the anterior basalsegment of right lower lung. Open thoracic surgical changes and permanentpacemaker is noted. No hiatal hernia.Liver, Gallbladder and Spleen: S/P cholecystectomy. Liver is xlgzngamcbdtc13.9 cm and spleen is 10 x 5 cm. Biliary ducts and the pancreatic duct arenot dilated.Peritoneum: No free air or free fluid. No lymphadenopathy.Pancreas and Adrenals: Unremarkable pancreas and adrenal glands.Kidneys and Ureters: No visible calculi in the renal collecting systems. No hydroureter or hydronep hrosis. 3.1 cm cyst in the anterior cortex nearthe hilum of the right kidney, 2 subcentimeter cysts in the lower leftkidney noted. Vessels: Mild atherosclerosis.Retroperitoneum: No abnormal fluid or lymphadenopathy.Bowel: Stomach is distended with fluid and food. Otherwise intestinal gaspattern is normal. Normal appendix is visualized. No significant fecalretention seen.Bladder and Reproductive Organs: Grossly unremarkable unopacified urinarybladder.Bones: Changes of lower lumbar surgery, trauma or to vertebral endplates ofthe lower thoracic and lumbar vertebral bodies. Disc osteophyte complex andfacet arthritis causing spinal stenosis at L2-L3, T7-T8 and T8-T9 levels.Soft tissues: Small fat-containing bilateral inguinal hernia, slightlylarger on the right side.CONCLUSION:1. No acute intra-abdominal or pelvic abnormalities detected. Nosignificant fecal retention.2. S/P cholecystectomy and lower lumbar surgery.3. No new findings when compared with recent CT scan of 07/18/2019 exceptfor slightly distended stomach from fluid and food material. Please seeadditional details above.[facility] CenterTroponin [id number] 18:20:00 Test Item Value Reference Range Interpretation Comments TROPONIN I (test 0.019 ng/mL See_Comment [Automated code = 4675874595) message] The system which generated this result transmitted reference range : <=0.034. The reference range was not used to interpret this result as normal/abnormal . DIANE (test code = Equal or Less than DIANE) 0.034 ng/ml---Normal ?Note: Cardiac troponin begins to rise 3-4 hours after the onset of ischemia. Repeat in 4-6 hours if the sample was drawn within 3-4 hours of the onset of the symptom and found normal. Between 0.035 and 0.120 ng/mL--- Borderline. Questionable myocardial injury or necrosis ? ?Note: Serial measurement may be necessary to confirm or exclude the diagnosis of myocardial injury or necrosis; Clinical correlation (symptoms, EKGs, imaging studies, and others) required; Repeat in 4-6 hours if clinically indicated. ? Equal or Higher than 0.121 ng/mL---Abnormal. Myocardial Injury or Necrosis Likely ? Biotin has been reported to cause a negative bias, interpret results relative to patient's use of biotin. ? Lab Interpretation Normal (test code = 49090-9) [facility] CenterXR CHEST 2 [id number] 18:10:52HISTORY: Cough and upper abdominal pain. TECHNIQUE: PA and lateral views of the chest are obtained. Comparison madewith 08/06/2019 portable study. FINDINGS: No acute pneumonia detected. No pneumothorax or pleural effusionor pulmonary congestion. Cardiothoracic ratio of approximately 14/34.3 cmis consistent with normal cardiac size. Open thoracic surgery for coronarybypass and permanent bipolar pacemaker inserted through left subclaviannoted with electrode tips in good position. Cholecystectomy clips are seenin the right upper abdomen.Minimal old compression deformity suspected in T7, T8, T9 with milddegenerative changes in lower thoracic spines. CONCLUSIONS: No signs of acute cardiopulmonary disease .[facility], Radiant Results Inft User - 08/15/2019 1:11 PM CDTHISTORY: Cough and upper abdominal pain.TECHNIQUE: PA and lateral views of the chest are obtained. Comparison madewith 08/06/2019 portable study.FINDINGS: No acute pneumonia detected. No pneumothorax or pleural effusionor pulmonary congestion. Ca rdiothoracic ratio of approximately 14/34.3 cmis consistent with normal cardiac size. Open thoracic surgery for coronarybypass and permanent bipolar pacemaker inserted through left subclaviannoted withelectrode tips in good position. Cholecystectomy clips are seenin the right upper abdomen.Minimal old compression deformity suspected in T7, T8, T9 with milddegenerative changes in lower thoracic spines.CONCLUSIONS: No signs of acute cardiopulmonary disease. [facility] CenterXR FOOT 3+ VW [id number] 18:09:41HISTORY: Diabetic foot ulcer. FINDINGS: AP, lateral, oblique views of left foot are obtained and comparedwith 07/18/2019 study. Also noted on the soft tissue of the heel pad withoutinvolvement of the underlying calcaneum. 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 No acutefracture or dislocation. CONCLUSIONS: No acute fracture or dislocation or plain film evidence ofosteomyelitis in the foot bones. [facility], Radiant Results Inft User - 08/15/2019 1:10 PM CDTHISTORY: Diabetic foot ulcer.FINDINGS: AP, lateral, oblique views of left foot are obtained and comparedwith 07/18/2019 study. Also noted on the soft tissue of the heel pad withoutinvolvement of the underlying calcaneum. 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 No acutefracture or dislocation.CONCLUSIONS: No acute fracture or dislocation or plain film evidence ofosteomyelitis in the foot bones.[facility] Metabolic Panel (NA, K, CL, CO2, GLUCOSE, BUN, CREATININE, CA)2019-08-15 18:09:00 Test Item Value Reference Range Interpretation Comments NA (test code = 137 mmol/L 135-145 4876113614) K (test code = 4.1 mmol/L 3.5-5 1511506382) CL (test code = 101 mmol/L 98-108 8213288839) CO2 TOTAL (test code = 25 mmol/L 23-31 3620931858) AGAP (test code = 2-16 0308750030) BUN (test code = 16 mg/dL 7-23 1675060112) GLUCOSE (test code = 430 mg/dL 70-110 H 0809156257) CREATININE (test code = 0.64 mg/dL 0.6-1.25 8640865568) CALCIUM (test code = 10.0 mg/dL 8.6-10.6 3716119635) eGFR Calculation mL/min/1.73m2 (Non-) (test code = 7091900020) eGFR Calculation mL/min/1.73m2 () (test code = 1994080542) DIANE (test code = DIANE) Association of Glomerular Filtration Rate (GFR) and Staging of Kidney Disease* + --+ --+ ------+| GFR (mL/min/1.73 m2) ?| With Kidney Damage ?| ?Without Kidney Damage+ --------+ --------+ +| ?>90 ?| ?Stage one ?| ? Normal ?+ ---+ ---+ -------+| ?60-89 ?| ?Stage two ?| ? Decreased GFR ? + --+ --+ ------+| ?30-59 ?| ?Stage three ?| ? Stage three ? + --+ --+ ------+| ?15-29 ?| ?Stage four ? | ? Stage four ?+ ---+ ---+ -------+| ?<15 (or dialysis) ? ?| ?Stage five ? | ? Stage five ?+ ---+ ---+ -------+ *Each stage assumes the associated GFR level has been in effect for at least three months. ?Stages 1 to 5, with or without kidney disease, indicate chronic kidney disease. Notes: Determination of stages one and two (with eGFR >59mL/min/1.73 m2) requires estimation of kidney damage for at least three months as defined by structural or functional abnormalities of the kidney, manifested by either:Pathological abnormalities or Markers of kidney damage (including abnormalities in the composition of the blood or urine or abnormalities in imaging tests). Lab Interpretation Abnormal (test code = 64612-3) [facility] CenterHepatic Function Panel (ALB, T.PRO, BILI T, BU/BC, ALT, AST, ALK PHOS)2019-08-15 18:09:00 Test Item Value Reference Range Interpretation Comments TOTAL BILI (test code = 6175499115) 0.6 mg/dL 0.1-1.1 BILI UNCON (test code = 3901157812) 0.7 mg/dL 0.1-1.1 BILI CONJ (test code = 6495469281) 0.0 mg/dL 0-0.3 T PROTEIN (test code = 6888310707) 7.9 g/dL 6.3-8.2 ALBUMIN (test code = 6654109823) 4.5 g/dL 3.5-5 ALK PHOS (test code = 8875555907) 190 U/L 34-122 H ALTv (test code = 1742-6) 36 U/L 5-50 AST(SGOT) (test code = 3885770874) 25 U/L 13-40 Lab Interpretation (test code = Abnormal 81374-7) [facility] CenterLipase [id number] 18:09:00 Test Item Value Reference Range Interpretation Comments LIPASE (test code = 4391887281) 262 U/L 0-220 H Lab Interpretation (test code = Abnormal 82288-9) [facility] CenterUrinalysis2020-03-26 18:06:00 Test Item Value Reference Range Interpretation Comments APPEARANCE (test code = Clear Clear 1738056681) COLOR (test code = Yellow Yellow 7299241575) PH (test code = 4.8-8.0 7577790306) SP GRAVITY (test code = 1.003-1.030 H 6631287331) GLU U QUAL (test code = 500 mg/dL Normal A 6619388295) BLOOD (test code = Negative Negative 7543924209) KETONES (test code = Negative Negative 9005074014) PROTEIN (test code = Negative Negative 2887-8) UROBILIN (test code = Normal Normal 2469652969) BILIRUBIN (test code = Negative Negative 3079043935) NITRITE (test code = Negative Negative 2789656274) LEUK PETER (test code = Negative Negative 1096295631) RBC/HPF (test code = See_Comment [Autom ated message] 1620361432) The system [employer] generated this result transmit ludmila reference range : 0 - 3 HPF. The refe rence range was not u sed to interpret th is result as normal/abnormal . WBC/HPF (test code = <1 See_Comment [Autom ated message] 9914830136) The system [employer] generated this result transmit ludmila reference range : 0 - 5 HPF. The refe rence range was not u sed to interpret th is result as normal/abnormal . BACTERIA (test code = Negative Negative 8454237290) Lab Interpretation (test Abnormal code = 23273-6) [facility] CenterProthrombin Time (PT) / [id number] 18:05:00 Test Item Value Reference Range Interpretation Comments PROTIME PATIENT (test See_Comment [Auto mated message] code = 5964-2) The system [employer] generated this result transmitted ref erence range: 12.0 - 1 4.7 Seconds. The re ference range was not u sed to interpret this result as normal/abnor mal. INR (test code = 6301-6) Nor mal INR <1.1; Warfarin Therap eutic range 2.0 to 3. 0 or 2.5 to 3.5, dep ending upon the indica tions. Lab Interpretation (test Normal code = 50279-1) [facility] CenterCB WITH [id number] 17:58:00 Test Item Value Reference Range Interpretation Comments WBC (test code = See_Comment [Automated 4090-2) message] The sy stem which generated this result transmitted reference range : 4.20 - 10.70 10*3/?L. The reference range was not used to interpret this result as normal/abnormal . RBC (test code = See_Comment L [Automated 109-8) message] The sy stem which generated this result transmitted reference range : 4.26 - 5.52 10*6/?L. The reference range was not used to interpret this result as normal/abnormal . HGB (test code = 11.6 g/dL 12.2-16.4 L 718-7) HCT (test code = 33.9 % 38.4-49.3 L 4544-3) MCV (test code = 87.6 fL 81.7-95.6 787-2) MCH (test code = 30.0 pg 26.1-32.7 785-6) MCHC (test code = 34.2 g/dL 31.2-35 786-4) RDW-SD (test code = 41.4 fL 38.5-51.6 56413-5) RDW-CV (test code = 13.0 % 12.1-15.4 788-0) PLT (test code = See_Comment [Automated 777-3) message] The sy stem which generated this result transmitted reference range : 150 - 328 10*3/ ?L. The reference r batsheva was not used to interpret this result as normal/abnormal . MPV (test code = 9.5 fL 9.8-13 L 33805-5) NRBC/100 WBC (test See_Comment [Automat ed code = 0116601548) message] The system which generated this result transmitted reference range : 0.0 - 10.0 /100 WBCs. The refer ence range was not u sed to interpret th is result as normal/abnormal . NRBC x10^3 (test code <0.01 See_Comment [Auto mated = 6505925710) message] The s ystem which generated this result transmitted reference range : 10*3/?L. The reference range was not used to interpret this result as normal/abnormal . GRAN MAT (NEUT) % 45.3 % (test code = 770-8) IMM GRAN % (test code 0.40 % = 2888067140) LYMPH % (test code = 41.5 % 736-9) MONO % (test code = 8.2 % 5905-5) EOS % (test code = 4.2 % 713-8) BASO % (test code = 0.4 % 706-2) GRAN MAT x10^3(ANC) 3.10 10*3/uL 1.99-6.95 (test code = 9429399695) IMM GRAN x10^3 (test 0.03 10*3/uL 0-0.06 code = 6464192525) LYMPH x10^3 (test code 2.85 10*3/uL 1.09-3.23 = 731-0) MONO x10^3 (test code 0.56 10*3/uL 0.36-1.02 = 742-7) EOS x10^3 (test code = 0.29 10*3/uL 0.06-0.53 711-2) BASO x10^3 (test code 0.03 10*3/uL 0.01-0.09 = 704-7) Lab Interpretation Abnormal (test code = 76799-4) [facility]SE (AUTOMATED[facility]2019-08-09 16:49:00 Test Item Value Reference Range Interpretation Comments POCT GLU (test code = 7605820153) 203 mg/dL 70-110 H Lab Interpretation (test code = Abnormal 68312-1) [facility] [id number] 16:00:00 Test Item Value Reference Range Interpretation Comments VIT B12 (test code = 859 pg/mL 240-930 9049450766) DIANE (test code = DIANE) Biotin has been reported to cause a positive bias, interpret results relative to patient's use of biotin. Lab Interpretation (test Normal code = 39728-7) [facility] GLUCOSE (AUTOMATED)2019-08-09 13:39:00 Test Item Value Reference Range Interpretation Comments POCT GLU (test code = 4350964551) 95 mg/dL 70-110 Lab Interpretation (test code = Normal 96987-2) [facility] CenterIR[facility] [id number] 10:56:00 Test Item Value Reference Range Interpretation Comments IRON (test code = 8398714948) 75 ug/dL 50-160 TIBC (test code = 6976313558) 308 ug/dL 250-410 % FE SAT (test code = 6714085163) 24 % 20-50 Lab Interpretation (test code = Normal 00979-1) [facility] (NA, K, CL, CO2, GLUCOSE, BUN, CREATININE, CA)2019-08-09 10:47:00 Test Item Value Reference Range Interpretation Comments NA (test code = 138 mmol/L 135-145 9801400460) K (test code = 3.6 mmol/L 3.5-5 4799782241) CL (test code = 106 mmol/L 98-108 8656288746) CO2 TOTAL (test code = 26 mmol/L 23-31 5509976273) AGAP (test code = 2-16 9265178680) BUN (test code = 10 mg/dL 7-23 6106821601) GLUCOSE (test code = 62 mg/dL 70-110 L 9773640307) CREATININE (test code = 0.45 mg/dL 0.6-1.25 L 6510287736) CALCIUM (test code = 8.6 mg/dL 8.6-10.6 2317212797) eGFR Calculation mL/min/1.73m2 (Non-) (test code = 0521927348) eGFR Calculation mL/min/1.73m2 () (test code = 8540948378) DIANE (test code = DIANE) Association of Glomerular Filtration Rate (GFR) and Staging of Kidney Disease* + --+ --+ ------+| GFR (mL/min/1.73 m2) ?| With Kidney Damage ?| ?Without Kidney Damage+ --------+ --------+ +| ?>90 ?| ?Stage one ?| ? Normal ?+ ---+ ---+ -------+| ?60-89 ?| ?Stage two ?| ? Decreased GFR ? + --+ --+ ------+| ?30-59 ?| ?Stage three ?| ? Stage three ? + --+ --+ ------+| ?15-29 ?| ?Stage four ? | ? Stage four ?+ ---+ ---+ -------+| ?<15 (or dialysis) ? ?| ?Stage five ? | ? Stage five ?+ ---+ ---+ -------+ *Each stage assumes the associated GFR level has been in effect for at least three months. ?Stages 1 to 5, with or without kidney disease, indicate chronic kidney disease. Notes: Determination of stages one and two (with eGFR >59mL/min/1.73 m2) requires estimation of kidney damage for at least three months as defined by structural or functional abnormalities of the kidney, manifested by either:Pathological abnormalities or Markers of kidney damage (including abnormalities in the composition of the blood or urine or abnormalities in imaging tests). Lab Interpretation Abnormal (test code = 63362-0) [facility] WITH [id number] 10:20:00 Test Item Value Reference Range Interpretation Comments WBC (test code = See_Comment [Automated 6690-2) message] The sy stem which generated this result transmitted reference range : 4.20 - 10.70 10*3/?L. The reference range was not used to interpret this result as normal/abnormal . RBC (test code = See_Comment L [Automated 789-8) message] The sy stem which generated this result transmitted reference range : 4.26 - 5.52 10*6/?L. The reference range was not used to interpret this result as normal/abnormal . HGB (test code = 10.7 g/dL 12.2-16.4 L 718-7) HCT (test code = 30.9 % 38.4-49.3 L 4544-3) MCV (test code = 87.5 fL 81.7-95.6 787-2) MCH (test code = 30.3 pg 26.1-32.7 785-6) MCHC (test code = 34.6 g/dL 31.2-35 786-4) RDW-SD (test code = 42.5 fL 38.5-51.6 54787-5) RDW-CV (test code = 13.4 % 12.1-15.4 788-0) PLT (test code = See_Comment H [Automated 777-3) message] The sy stem which generated this result transmitted reference range : 150 - 328 10*3/ ?L. The reference r batsheva was not used to interpret this result as normal/abnormal . MPV (test code = 9.5 fL 9.8-13 L 69014-7) NRBC/100 WBC (test See_Comment [Automat ed code = 7543294746) message] The system which generated this result transmitted reference range : 0.0 - 10.0 /100 WBCs. The refer ence range was not u sed to interpret th is result as normal/abnormal . NRBC x10^3 (test code <0.01 See_Comment [Auto mated = 3631518289) message] The s ystem which generated this result transmitted reference range : 10*3/?L. The reference range was not used to interpret this result as normal/abnormal . GRAN MAT (NEUT) % 54.6 % (test code = 770-8) IMM GRAN % (test code 0.50 % = 5049461007) LYMPH % (test code = 30.3 % 736-9) MONO % (test code = 8.3 % 5905-5) EOS % (test code = 5.8 % 713-8) BASO % (test code = 0.5 % 706-2) GRAN MAT x10^3(ANC) 3.51 10*3/uL 1.99-6.95 (test code = 4075450412) IMM GRAN x10^3 (test 0.03 10*3/uL 0-0.06 code = 2253507259) LYMPH x10^3 (test code 1.94 10*3/uL 1.09-3.23 = 731-0) MONO x10^3 (test code 0.53 10*3/uL 0.36-1.02 = 742-7) EOS x10^3 (test code = 0.37 10*3/uL 0.06-0.53 711-2) BASO x10^3 (test code 0.03 10*3/uL 0.01-0.09 = 704-7) Lab Interpretation Abnormal (test code = 06727-0) [facility] 05:38:00 Test Item Value Reference Range Interpretation Comments FOLATE SER (test code = 6.8 ng/mL 3-20 Biot in has been 7353454716) reported to cau se a positive bias, interpret resul ts relative to patient's use o f biotin. Lab Interpretation (test Normal code = 92863-7) [facility]2019-[facility]-09 00:59:00 Test Item Value Reference Range Interpretation Comments POCT GLU (test code = 6315744980) 169 mg/dL 70-110 H Lab Interpretation (test code = Abnormal 15510-1) [facility] CenterFERRITIN [id number] 22:54:00 Test Item Value Reference Range Interpretation Comments FERRITIN (test code = 120.0 ng/mL 18-464 2930028090) DIANE (test code = DIANE) Biotin has been reported to cause a negative bias, interpret results relative to patient's use of biotin. Lab Interpretation (test Normal code = 34074-9) [facility] GLUCOSE (AUTOMATED)2019-08-08 22:32:00 Test Item Value Reference Range Interpretation Comments POCT GLU (test code = 5493276430) 122 mg/dL 70-110 H Lab Interpretation (test code = Abnormal 54671-3) [facility] GLUCOSE (AUTOMATED)2019-08-08 17:10:00 Test Item Value Reference Range Interpretation Comments POCT GLU (test code = 5530453434) 132 mg/dL 70-110 H Lab Interpretation (test code = Abnormal 44619-9) [facility] UPPER GI [id number] 16:42:01HISTORY: Upper abdominal pain and weight loss. TECHNIQUE: Upper GI series was completed using bariumand gas producingparticles. Multiple digital spot images of the gastroesophageal junction,stomach, duodenum and proximal jejunum are obtained the patient in severaldifferent positions. FINDINGS: Sluggish peristaltic activity noted allowing prolonged presenceof barium in the middle and lower third of the esophagus with slow passageof barium through the GE junction into the gastric chamber. No hiatalhernia or gastroesophageal reflux detected. Stomach and duodenum show normal peristalsis, contour and mucosal lining.No ulcerations noted in the mucosa lining of the stomach, duodenum or theproximal jejunum. Note made of cholecystectomy, open thoracic surgery, permanent pacemakersand metallic stent probably in left subclavian artery. CONCLUSIONS: Esophageal dysmotility with prolonged retention of bariumnoted in the esophagus, otherwise normal upper GI series.[facility], Radiant Results Inft User - 08/08/2019 11:43 AM CDTHISTORY: Upper abdominal pain and weight loss.TECHNIQUE: Upper GI series was completed using barium and gas producingparticles. Multiple digital spot images of the gastroesophageal junction,stomach, duodenum and proximal jejunum are obtained the patient in severaldifferent positions.FINDINGS: Sluggish peristaltic activity noted allowing prolonged presenceof barium in the middle and lower third of the esophagus with slow passageof barium through the GE junction into the gastric chamber. No hiatalhernia or gastroesophageal reflux detected.Stomach and duodenum show normal peristalsis, contour and mucosal lining.No ulcerations noted in the mucosa lining of the stomach, duodenum or theproximal jejunum.Note made of cholecystectomy, open thoracic surgery, permanent pacemakersand metallic stent probably in left subclavian artery.CONCLUSIONS: Esophageal dysmotility with prolonged retention of bariumnoted in the esophagus, otherwise normal upper GI series.[facility]2019-08-08 13:06:00 Test Item Value Reference Range Interpretation Comments POCT GLU (test code = 8463889051) 118 mg/dL 70-110 H Lab Interpretation (test code = Abnormal 42097-2) [facility] CenterB[facility]abolic Panel (NA, K, CL, CO2, GLUCOSE, BUN, CREATININE, CA)2019-08-08 11:00:00 Test Item Value Reference Range Interpretation Comments NA (test code = 137 mmol/L 135-145 6784918662) K (test code = 3.7 mmol/L 3.5-5 9580474930) CL (test code = 105 mmol/L 98-108 8579835773) CO2 TOTAL (test code = 25 mmol/L 23-31 7912664982) AGAP (test code = 2-16 0189658289) BUN (test code = 13 mg/dL 7-23 9823022170) GLUCOSE (test code = 123 mg/dL 70-110 H 1921841019) CREATININE (test code = 0.44 mg/dL 0.6-1.25 L 3985249450) CALCIUM (test code = 8.6 mg/dL 8.6-10.6 7283013432) eGFR Calculation mL/min/1.73m2 (Non-) (test code = 7570013952) eGFR Calculation mL/min/1.73m2 () (test code = 2694319225) DIANE (test code = DIANE) Association of Glomerular Filtration Rate (GFR) and Staging of Kidney Disease* + --+ --+ ------+| GFR (mL/min/1.73 m2) ?| With Kidney Damage ?| ?Without Kidney Damage+ --------+ --------+ +| ?>90 ?| ?Stage one ?| ? Normal ?+ ---+ ---+ -------+| ?60-89 ?| ?Stage two ?| ? Decreased GFR ? + --+ --+ ------+| ?30-59 ?| ?Stage three ?| ? Stage three ? + --+ --+ ------+| ?15-29 ?| ?Stage four ? | ? Stage four ?+ ---+ ---+ -------+| ?<15 (or dialysis) ? ?| ?Stage five ? | ? Stage five ?+ ---+ ---+ -------+ *Each stage assumes the associated GFR level has been in effect for at least three months. ?Stages 1 to 5, with or without kidney disease, indicate chronic kidney disease. Notes: Determination of stages one and two (with eGFR >59mL/min/1.73 m2) requires estimation of kidney damage for at least three months as defined by structural or functional abnormalities of the kidney, manifested by either:Pathological abnormalities or Markers of kidney damage (including abnormalities in the composition of the blood or urine or abnormalities in imaging tests). Lab Interpretation Abnormal (test code = 68184-3) [facility] WITH [id number] 10:08:00 Test Item Value Reference Range Interpretation Comments WBC (test code = See_Comment [Automated 2790-2) message] The sy stem which generated this result transmitted reference range : 4.20 - 10.70 10*3/?L. The reference range was not used to interpret this result as normal/abnormal . RBC (test code = See_Comment L [Automated 139-8) message] The sy stem which generated this result transmitted reference range : 4.26 - 5.52 10*6/?L. The reference range was not used to interpret this result as normal/abnormal . HGB (test code = 10.8 g/dL 12.2-16.4 L 718-7) HCT (test code = 31.7 % 38.4-49.3 L 4544-3) MCV (test code = 88.5 fL 81.7-95.6 787-2) MCH (test code = 30.2 pg 26.1-32.7 785-6) MCHC (test code = 34.1 g/dL 31.2-35 786-4) RDW-SD (test code = 43.1 fL 38.5-51.6 29591-5) RDW-CV (test code = 13.2 % 12.1-15.4 788-0) PLT (test code = See_Comment H [Automated 777-3) message] The sy stem which generated this result transmitted reference range : 150 - 328 10*3/ ?L. The reference r batsheva was not used to interpret this result as normal/abnormal . MPV (test code = 9.7 fL 9.8-13 L 95587-0) NRBC/100 WBC (test See_Comment [Automat ed code = 5572551901) message] The system which generated this result transmitted reference range : 0.0 - 10.0 /100 WBCs. The refer ence range was not u sed to interpret th is result as normal/abnormal . NRBC x10^3 (test code <0.01 See_Comment [Auto mated = 3824050182) message] The s ystem which generated this result transmitted reference range : 10*3/?L. The reference range was not used to interpret this result as normal/abnormal . GRAN MAT (NEUT) % 59.0 % (test code = 770-8) IMM GRAN % (test code 0.50 % = 3092351817) LYMPH % (test code = 26.5 % 736-9) MONO % (test code = 6.9 % 5905-5) EOS % (test code = 6.6 % 713-8) BASO % (test code = 0.5 % 706-2) GRAN MAT x10^3(ANC) 3.83 10*3/uL 1.99-6.95 (test code = 3988678684) IMM GRAN x10^3 (test 0.03 10*3/uL 0-0.06 code = 4777057413) LYMPH x10^3 (test code 1.72 10*3/uL 1.09-3.23 = 731-0) MONO x10^3 (test code 0.45 10*3/uL 0.36-1.02 = 742-7) EOS x10^3 (test code = 0.43 10*3/uL 0.06-0.53 711-2) BASO x10^3 (test code 0.03 10*3/uL 0.01-0.09 = 704-7) Lab Interpretation Abnormal (test code = 20219-7) [facility] GLUCOSE (AUTOMATED)2019-08-08 01:43:00 Test Item Value Reference Range Interpretation Comments POCT GLU (test code = 7835658330) 74 mg/dL 70-110 Lab Interpretation (test code = Normal 20837-2) [facility] GLUCOSE (AUTOMATED)2019-08-07 21:25:00 Test Item Value Reference Range Interpretation Comments POCT GLU (test code = 5609317645) 112 mg/dL 70-110 H Lab Interpretation (test code = Abnormal 08074-0) [facility] CenterTroponin [id number] 16:36:00 Test Item Value Reference Range Interpretation Comments TROPONIN I (test 0.014 ng/mL See_Comment [Automated code = 2741897071) message] The system which generated this result transmitted reference range : <=0.034. The reference range was not used to interpret this result as normal/abnormal . DIANE (test code = Equal or Less than DIANE) 0.034 ng/ml---Normal ?Note: Cardiac troponin begins to rise 3-4 hours after the onset of ischemia. Repeat in 4-6 hours if the sample was drawn within 3-4 hours of the onset of the symptom and found normal. Between 0.035 and 0.120 ng/mL--- Borderline. Questionable myocardial injury or necrosis ? ?Note: Serial measurement may be necessary to confirm or exclude the diagnosis of myocardial injury or necrosis; Clinical correlation (symptoms, EKGs, imaging studies, and others) required; Repeat in 4-6 hours if clinically indicated. ? Equal or Higher than 0.121 ng/mL---Abnormal. Myocardial Injury or Necrosis Likely ? Biotin has been reported to cause a negative bias, interpret results relative to patient's use of biotin. ? Lab Interpretation Normal (test code = 91159-4) [facility] GLUCOSE (AUTOMATED)2019-08-07 13:39:00 Test Item Value Reference Range Interpretation Comments POCT GLU (test code = 9667009767) 240 mg/dL 70-110 H Lab Interpretation (test code = Abnormal 77395-0) [facility]2019-[facility]-07 13:08:00 Test Item Value Reference Range Interpretation Comments POCT GLU (test code = 1474580029) 150 mg/dL 70-110 H Lab Interpretation (test code = Abnormal 28553-3) [facility] CenterTroponin [id number] 10:00:00 Test Item Value Reference Range Interpretation Comments TROPONIN I (test 0.014 ng/mL See_Comment [Automated code = 5039908876) message] The system which generated this result transmitted reference range : <=0.034. The reference range was not used to interpret this result as normal/abnormal . DIANE (test code = Equal or Less than DIANE) 0.034 ng/ml---Normal ?Note: Cardiac troponin begins to rise 3-4 hours after the onset of ischemia. Repeat in 4-6 hours if the sample was drawn within 3-4 hours of the onset of the symptom and found normal. Between 0.035 and 0.120 ng/mL--- Borderline. Questionable myocardial injury or necrosis ? ?Note: Serial measurement may be necessary to confirm or exclude the diagnosis of myocardial injury or necrosis; Clinical correlation (symptoms, EKGs, imaging studies, and others) required; Repeat in 4-6 hours if clinically indicated. ? Equal or Higher than 0.121 ng/mL---Abnormal. Myocardial Injury or Necrosis Likely ? Biotin has been reported to cause a negative bias, interpret results relative to patient's use of biotin. ? Lab Interpretation Normal (test code = 02197-8) [facility] CenterN-TERMINAL [id number] 09:57:00 Test Item Value Reference Range Interpretation Comments NT-proBNP (test code 265 pg/mL See_Comment H [Autom ated = 4787276342) message] The system which generated this result transmitted reference range : <=125. The reference range was not used to interpret this result as normal/abnormal . DIANE (test code = DIANE) Biotin has been reported to cause a negative bias, interpret results relative to patient's use of biotin. Lab Interpretation Abnormal (test code = 74942-1) [facility] (NA, K, CL, CO2, GLUCOSE, BUN, CREATININE, CA)2019-08-07 09:53:00 Test Item Value Reference Range Interpretation Comments NA (test code = 140 mmol/L 135-145 3603973788) K (test code = 3.6 mmol/L 3.5-5 9422100711) CL (test code = 104 mmol/L 98-108 8019592205) CO2 TOTAL (test code = 27 mmol/L 23-31 9794107379) AGAP (test code = 2-16 5712844970) BUN (test code = 16 mg/dL 7-23 0995008321) GLUCOSE (test code = 135 mg/dL 70-110 H 5217966210) CREATININE (test code = 0.51 mg/dL 0.6-1.25 L 5148352628) CALCIUM (test code = 9.2 mg/dL 8.6-10.6 6520579131) eGFR Calculation mL/min/1.73m2 (Non-) (test code = 5813196770) eGFR Calculation mL/min/1.73m2 () (test code = 2604040112) DIANE (test code = DIANE) Association of Glomerular Filtration Rate (GFR) and Staging of Kidney Disease* + --+ --+ ------+| GFR (mL/min/1.73 m2) ?| With Kidney Damage ?| ?Without Kidney Damage+ --------+ --------+ +| ?>90 ?| ?Stage one ?| ? Normal ?+ ---+ ---+ -------+| ?60-89 ?| ?Stage two ?| ? Decreased GFR ? + --+ --+ ------+| ?30-59 ?| ?Stage three ?| ? Stage three ? + --+ --+ ------+| ?15-29 ?| ?Stage four ? | ? Stage four ?+ ---+ ---+ -------+| ?<15 (or dialysis) ? ?| ?Stage five ? | ? Stage five ?+ ---+ ---+ -------+ *Each stage assumes the associated GFR level has been in effect for at least three months. ?Stages 1 to 5, with or without kidney disease, indicate chronic kidney disease. Notes: Determination of stages one and two (with eGFR >59mL/min/1.73 m2) requires estimation of kidney damage for at least three months as defined by structural or functional abnormalities of the kidney, manifested by either:Pathological abnormalities or Markers of kidney damage (including abnormalities in the composition of the blood or urine or abnormalities in imaging tests). Lab Interpretation Abnormal (test code = 90205-8) [facility] CenterMAGN[facility]IUM2020-[facility] 09:53:00 Test Item Value Reference Range Interpretation Comments MAGNESIUM (test code = 1353512316) 2.1 mg/dL 1.7-2.4 Lab Interpretation (test code = Normal 55181-5) [facility] CenterCB WITH [id number] 09:25:00 Test Item Value Reference Range Interpretation Comments WBC (test code = See_Comment [Automated 6090-2) message] The sy stem which generated this result transmitted reference range : 4.20 - 10.70 10*3/?L. The reference range was not used to interpret this result as normal/abnormal . RBC (test code = See_Comment L [Automated 789-8) message] The sy stem which generated this result transmitted reference range : 4.26 - 5.52 10*6/?L. The reference range was not used to interpret this result as normal/abnormal . HGB (test code = 10.9 g/dL 12.2-16.4 L 718-7) HCT (test code = 32.1 % 38.4-49.3 L 4544-3) MCV (test code = 88.7 fL 81.7-95.6 787-2) MCH (test code = 30.1 pg 26.1-32.7 785-6) MCHC (test code = 34.0 g/dL 31.2-35 786-4) RDW-SD (test code = 42.5 fL 38.5-51.6 79086-0) RDW-CV (test code = 13.1 % 12.1-15.4 788-0) PLT (test code = See_Comment H [Automated 777-3) message] The sy stem which generated this result transmitted reference range : 150 - 328 10*3/ ?L. The reference r batsheva was not used to interpret this result as normal/abnormal . MPV (test code = 9.4 fL 9.8-13 L 15539-8) NRBC/100 WBC (test See_Comment [Automat ed code = 1165134363) message] The system which generated this result transmitted reference range : 0.0 - 10.0 /100 WBCs. The refer ence range was not u sed to interpret th is result as normal/abnormal . NRBC x10^3 (test code <0.01 See_Comment [Auto mated = 4707365132) message] The s ystem which generated this result transmitted reference range : 10*3/?L. The reference range was not used to interpret this result as normal/abnormal . GRAN MAT (NEUT) % 49.6 % (test code = 770-8) IMM GRAN % (test code 1.00 % = 9943997882) LYMPH % (test code = 35.6 % 736-9) MONO % (test code = 10.0 % 5905-5) EOS % (test code = 3.5 % 713-8) BASO % (test code = 0.3 % 706-2) GRAN MAT x10^3(ANC) 3.07 10*3/uL 1.99-6.95 (test code = 4294635948) IMM GRAN x10^3 (test 0.06 10*3/uL 0-0.06 code = 3636624615) LYMPH x10^3 (test code 2.21 10*3/uL 1.09-3.23 = 731-0) MONO x10^3 (test code 0.62 10*3/uL 0.36-1.02 = 742-7) EOS x10^3 (test code = 0.22 10*3/uL 0.06-0.53 711-2) BASO x10^3 (test code <0.03 0.01-0.09 = 704-7) Lab Interpretation Abnormal (test code = 09290-9) [facility] CenterGLYCOSYLATED HEMOGLOBIN (A1C)2019-08-07 04:47:00 Test Item Value Reference Interpretation Comments Range HGB A1C (test code = See_Comment H [Autom ated 4548-4) message] The system which generated this result transmitted reference range : 4.0 - 6.0 % NGSP. The reference range was not used to interpret this result as normal/abnormal . DIANE (test code = %A1C (NGSP) DIANE) Interpretation (ADA)4.8-5.6 ? ? Normal or (Non-Diabetic Range)5.7-6.4 ? ? Increased Risk (Pre-Diabetic)>6.5 ?Diabetes Indicated Lab Interpretation Abnormal (test code = 96341-6) [facility] CenterTroponin [id number] 04:11:00 Test Item Value Reference Range Interpretation Comments TROPONIN I (test 0.017 ng/mL See_Comment [Automated code = 7088130735) message] The system which generated this result transmitted reference range : <=0.034. The reference range was not used to interpret this result as normal/abnormal . DIANE (test code = Equal or Less than DIANE) 0.034 ng/ml---Normal ?Note: Cardiac troponin begins to rise 3-4 hours after the onset of ischemia. Repeat in 4-6 hours if the sample was drawn within 3-4 hours of the onset of the symptom and found normal. Between 0.035 and 0.120 ng/mL--- Borderline. Questionable myocardial injury or necrosis ? ?Note: Serial measurement may be necessary to confirm or exclude the diagnosis of myocardial injury or necrosis; Clinical correlation (symptoms, EKGs, imaging studies, and others) required; Repeat in 4-6 hours if clinically indicated. ? Equal or Higher than 0.121 ng/mL---Abnormal. Myocardial Injury or Necrosis Likely ? Biotin has been reported to cause a negative bias, interpret results relative to patient's use of biotin. ? Lab Interpretation Normal (test code = 22910-1) [facility] CenterUS [facility] [id number] 03:38:19 A 2.7 cm right simple renal cyst. Otherwise, an unremarkable sonographic examination of the abdomen. Preliminary Report Dictated by Resident: Sekou Stein MD., have reviewed this study and agree with the abovereport.COMPLETE ABDOMINAL ULTRASOUND INDICATION: ?right side abdominal pain COMPARISON: None. FINDINGS: ? The liver is normal in size (15.4 cm), shape and echotexture. ?Nointrahepatic biliary dilatation is identified. ?The main portal veindemonstrates hepatopetal flow. The gallbladder is removed. The common bile duct is normal in calibermeasuring 6 mm. The spleen is normal in size measuring 9.1 x 2.9 x 3.2 cm. ?No evidence ofascites. The kidneys are normal in size, shape, and echotexture withoutultrasonographic signs of nephrolithiasis or hydronephrosis. ?The rightkidney measures 13 x 7 x 6.5 cm (294 mL). The right kidney contains a 2.7 x2.4 x 2.3 cm round, anechoic structure that demonstrates posterior acousticenhancement consistent with simple renal cyst. The left kidney measures 13x 6.6 x 5 cm (224 mL). The proximal suprarenal abdominal aorta measures 2.1 cm in AP diameter. The IVC is seen entering the liver. [facility], Radiant Results Inft User - 08/06/2019 10:39 PMCDTCOMPLETE ABDOMINAL ULTRASOUNDINDICATION: right side abdominal pain COMPARISON: None.FINDINGS: The liver is normal in size (15.4 cm), shape and echotexture. Nointrahepatic biliary dilatation is identified. The main portal veindemonstrates hepatopetal flow.The gallbladder is removed. The common bile duct is normal in calibermeasuring 6 mm.The spleen is normal in size measuring 9.1 x 2.9 x 3.2 cm. No evidence ofascites.The kidneys are normal in size, shape, and echotexture withoutultrasonographic signs of nephrolithiasis or hydronephrosis. The rightkidney measures 13 x 7 x 6.5 cm (294 mL). The right kidney contains a 2.7 x2.4 x 2.3 cm round, anechoic structure that demonstrates posterior acou sticenhancement consistent with simple renal cyst. The left kidney measures 13x 6.6 x 5 cm (224 mL).The proximal suprarenal abdominal aorta measures 2.1 cm in AP diameter. The IVC is seen entering the liver.IMPRESSION A 2.7 cm right simple renal cyst.Otherwise, an unremarkable sonographic examination of the abdomen.Preliminary Report Dictated by Resident: Sekou Díaz MD., have reviewed this study and agree with the abovereport.[facility] CenterPO[facility] ([facility]OMATED)2019-08-07 01:27:00 Test Item Value Reference Range Interpretation Comments POCT GLU (test code = 0610495748) 293 mg/dL 70-110 H Lab Interpretation (test code = Abnormal 39802-3) [facility] CenterThyroid Stimulating Hormone (TSH)2019-08-06 23:41:00 Test Item Value Reference Range Interpretation Comments TSH (test code = See_Comment [Automated message] [id number]) The system [employer] generated this result transmitted ref erence range: 0.45 - 4 .70 mIU/L. The refe rence range was not u sed to interpret this result as normal/abnor mal. Lab Interpretation (test Normal code = 52979-9) [facility] CenterMagnesium [id number] 23:22:00 Test Item Value Reference Range Interpretation Comments MAGNESIUM (test code = 2775845200) 2.0 mg/dL 1.7-2.4 Lab Interpretation (test code = Normal 94574-6) [facility] CenterLipid Panel (Total Cholesterol, Triglycerides, HDL) - [id number] 23:12:00 Test Item Value Reference Range Interpretation Comments CHOL (test code = 185 mg/dL 120-200 9821179997) HDL (test code = 27 mg/dL >40 L 9589401886) HDLC RATIO (test code = See_Comment H [Au tomated message] 0977266913) The system [employer] generated this result transmit ludmila reference range : <=5.0. The refe rence range was not u sed to interpret th is result as normal/abnormal . TRIG (test code = 280 mg/dL 30-170 H 6980219987) LDL CHOL (test code = 102 mg/dL See_Comment [Auto mated message] 27960-4) The system [employer] generated this result transmit ludmila reference range : <=160. The refe rence range was not u sed to interpret th is result as normal/abnormal . VLDL (test code = 56 mg/dL 5-60 4419232517) Lab Interpretation (test Abnormal code = 04393-9) [facility] CenterTROPONIN [id number] 20:39:00 Test Item Value Reference Range Interpretation Comments TROPONIN I (test 0.018 ng/mL See_Comment [Automated code = 6788923520) message] The system which generated this result transmitted reference range : <=0.034. The reference range was not used to interpret this result as normal/abnormal . DIANE (test code = Equal or Less than DIANE) 0.034 ng/ml---Normal ?Note: Cardiac troponin begins to rise 3-4 hours after the onset of ischemia. Repeat in 4-6 hours if the sample was drawn within 3-4 hours of the onset of the symptom and found normal. Between 0.035 and 0.120 ng/mL--- Borderline. Questionable myocardial injury or necrosis ? ?Note: Serial measurement may be necessary to confirm or exclude the diagnosis of myocardial injury or necrosis; Clinical correlation (symptoms, EKGs, imaging studies, and others) required; Repeat in 4-6 hours if clinically indicated. ? Equal or Higher than 0.121 ng/mL---Abnormal. Myocardial Injury or Necrosis Likely ? Biotin has been reported to cause a negative bias, interpret results relative to patient's use of biotin. ? Lab Interpretation Normal (test code = 39765-3) [facility] CenterXR CHEST 1 [id number] 20:32:21HISTORY: Chest pain. TECHNIQUE: 2 Portable AP erect view of the chest were obtained. Comparisonmade with 07/17/2019 study. FINDINGS: No acute pneumonia. No pneumothorax or pleural effusion orpulmonary congestion detected. Cardiac size is within normal limits. Openthoracic surgery probably for coronary bypass, cholecystectomy, bipolarpermanent pacemaker inserted through left subclavian with electrode tips inthe right ventricle and a renal regions and metallic stent probably in leftsubclavian artery noted. CONCLUSIONS: No signs of acute cardiopulmonary disease.[facility], Radiant Results Inft User - 08/06/2019 3:33 PM CDTHISTORY: Chest pain.TECHNIQUE: 2 Portable AP erect view of the chest were obtained. Comparisonmade with 07/17/2019 study.FINDINGS: No acute pneumonia. No pneumothorax or pleural effusion orpulmonary congestion detected. Cardiac size is within normal limits. Openthoracic surgery probably for coronary bypass, cholecystectomy, bipolarpermanent pacemaker inserted through left subclavian with electrode tips inthe right ventricle and a renal regions and metallic stent probably in leftsubclavian artery noted.CONCLUSIONS: No signs of acute cardiopulmonary disease.[facility]. METABOLIC PANEL (40836)2019-08-06 20:29:00 Test Item Value Reference Range Interpretation Comments NA (test code = 139 mmol/L 135-145 5036586020) K (test code = 4.2 mmol/L 3.5-5 8013685813) CL (test code = 103 mmol/L 98-108 0524173145) CO2 TOTAL (test code = 23 mmol/L 23-31 0284220017) AGAP (test code = 2-16 5668841555) BUN (test code = 15 mg/dL 7-23 5918750331) GLUCOSE (test code = 337 mg/dL 70-110 H 3651466107) CREATININE (test code = 0.60 mg/dL 0.6-1.25 5201901777) TOTAL BILI (test code = 0.4 mg/dL 0.1-1.6 1247868176) CALCIUM (test code = 9.8 mg/dL 8.6-10.6 9142384462) T PROTEIN (test code = 8.2 g/dL 6.3-8.2 2800743335) ALBUMIN (test code = 4.6 g/dL 3.5-5 7030403180) ALK PHOS (test code = 154 U/L 34-122 H 3737611124) ALTv (test code = 22 U/L 5-50 1742-6) AST(SGOT) (test code = 25 U/L 13-40 1754350440) eGFR Calculation mL/min/1.73m2 (Non-) (test code = 0054140694) eGFR Calculation mL/min/1.73m2 () (test code = 6116523719) DIANE (test code = DIANE) Association of Glomerular Filtration Rate (GFR) and Staging of Kidney Disease* + --+ --+ ------+| GFR (mL/min/1.73 m2) ?| With Kidney Damage ?| ?Without Kidney Damage+ --------+ --------+ +| ?>90 ?| ?Stage one ?| ? Normal ?+ ---+ ---+ -------+| ?60-89 ?| ?Stage two ?| ? Decreased GFR ? + --+ --+ ------+| ?30-59 ?| ?Stage three ?| ? Stage three ? + --+ --+ ------+| ?15-29 ?| ?Stage four ? | ? Stage four ?+ ---+ ---+ -------+| ?<15 (or dialysis) ? ?| ?Stage five ? | ? Stage five ?+ ---+ ---+ -------+ *Each stage assumes the associated GFR level has been in effect for at least three months. ?Stages 1 to 5, with or without kidney disease, indicate chronic kidney disease. Notes: Determination of stages one and two (with eGFR >59mL/min/1.73 m2) requires estimation of kidney damage for at least three months as defined by structural or functional abnormalities of the kidney, manifested by either:Pathological abnormalities or Markers of kidney damage (including abnormalities in the composition of the blood or urine or abnormalities in imaging tests). Lab Interpretation Abnormal (test code = 11852-1) [facility] CenterLIPASE, [id number] 20:28:00 Test Item Value Reference Range Interpretation Comments LIPASE (test code = 5928733628) 464 U/L 0-220 H Lab Interpretation (test code = Abnormal 01687-9) [facility] CenterCBC WITH [id number] 20:27:00 Test Item Value Reference Range Interpretation Comments WBC (test code = See_Comment [Automated 5904-2) message] The sy stem which generated this result transmitted reference range : 4.20 - 10.70 10*3/?L. The reference range was not used to interpret this result as normal/abnormal . RBC (test code = See_Comment L [Automated 786-8) message] The sy stem which generated this result transmitted reference range : 4.26 - 5.52 10*6/?L. The reference range was not used to interpret this result as normal/abnormal . HGB (test code = 12.7 g/dL 12.2-16.4 718-7) HCT (test code = 37.2 % 38.4-49.3 L 4544-3) MCV (test code = 88.8 fL 81.7-95.6 787-2) MCH (test code = 30.3 pg 26.1-32.7 785-6) MCHC (test code = 34.1 g/dL 31.2-35 786-4) RDW-SD (test code = 43.4 fL 38.5-51.6 37443-3) RDW-CV (test code = 13.3 % 12.1-15.4 788-0) PLT (test code = See_Comment H [Automated 777-3) message] The sy stem which generated this result transmitted reference range : 150 - 328 10*3/ ?L. The reference r batsheva was not used to interpret this result as normal/abnormal . MPV (test code = 10.3 fL 9.8-13 23955-8) NRBC/100 WBC (test See_Comment [Automat ed code = 1180138382) message] The system which generated this result transmitted reference range : 0.0 - 10.0 /100 WBCs. The refer ence range was not u sed to interpret th is result as normal/abnormal . NRBC x10^3 (test code <0.01 See_Comment [Auto mated = 0760302545) message] The s ystem which generated this result transmitted reference range : 10*3/?L. The reference range was not used to interpret this result as normal/abnormal . GRAN MAT (NEUT) % 62.5 % (test code = 770-8) IMM GRAN % (test code 1.50 % = 3746303980) LYMPH % (test code = 27.0 % 736-9) MONO % (test code = 6.5 % 5905-5) EOS % (test code = 2.1 % 713-8) BASO % (test code = 0.4 % 706-2) GRAN MAT x10^3(ANC) 6.35 10*3/uL 1.99-6.95 (test code = 4386332013) IMM GRAN x10^3 (test 0.15 10*3/uL 0-0.06 H code = 5973772530) LYMPH x10^3 (test code 2.74 10*3/uL 1.09-3.23 = 731-0) MONO x10^3 (test code 0.66 10*3/uL 0.36-1.02 = 742-7) EOS x10^3 (test code = 0.21 10*3/uL 0.06-0.53 711-2) BASO x10^3 (test code 0.04 10*3/uL 0.01-0.09 = 704-7) Lab Interpretation Abnormal (test code = 22097-3) [facility] CenterPROTHROMBIN TIME / [id number] 20:23:00 Test Item Value Reference Range Interpretation Comments PROTIME PATIENT (test See_Comment [Auto mated message] code = 5964-2) The system [email or web address] generated this result transmitted ref erence range: 12.0 - 1 4.7 Seconds. The re ference range was not u sed to interpret this result as normal/abnor mal. INR (test code = 6301-6) Nor mal INR <1.1; Warfarin Therap eutic range 2.0 to 3. 0 or 2.5 to 3.5, dep ending upon the indica tions. Lab Interpretation (test Normal code = 39614-7) [facility] CenteraPTT2020-03-17 20:22:00 Test Item Value Reference Range Interpretation Comments APTT Patient (test See_Comment [Automat ed code = 3173-2) message] The system which generated this result transmitted reference range : 23 - 38 Seconds . The reference range was not used to interpr et this result as normal/abnormal . DIANE (test code = DIANE) The [facility] patient population mean normal value for aPTT is 30 seconds. Lab Interpretation Normal (test code = 86888-0) [facility] CenterPOCT GLUCOSE (AUTOMATED)2019-07-18 23:35:00 Test Item Value Reference Range Interpretation Comments POCT GLU (test code = 3350125431) 241 mg/dL 70-110 H Lab Interpretation (test code = Abnormal 52884-2) [facility] CenterSEDIMENTATION [id number] 22:16:00 Test Item Value Reference Range Interpretation Comments ESR (test code = See_Comment H [Automated message] 8975528670) The system [employer] generated this result transmitted ref erence range: 0 - 10 m m/HR. The reference r batsheva was not used to interpret this result as normal/abnor mal. Lab Interpretation (test Abnormal code = 96438-3) [facility] CenteraPTT (for use with Heparin Practice Guideline). Note: Draw and Send all Lab STAT.2019-07-18 21:09:00 Test Item Value Reference Range Interpretation Comments APTT Patient (test code See_Comment H [Au tomated message] = 3173-2) The system [employer] generated this result transmitted ref erence range: 26 - 36 Seconds. The reference range was not used to int erpret this result as normal/abnormal . Lab Interpretation (test Abnormal code = 43257-4) [facility] CenterC-REACTIVE [id number] 20:31:00 Test Item Value Reference Range Interpretation Comments CRP (test code = 6342787892) 0.4 mg/dL <0.8 Lab Interpretation (test code = Normal 15981-8) [facility] CenterTROPONIN [id number] 17:57:00 Test Item Value Reference Range Interpretation Comments TROPONIN I (test 0.031 ng/mL See_Comment [Automated code = 7172520435) message] The system which generated this result transmitted reference range : <=0.034. The reference range was not used to interpret this result as normal/abnormal . DIANE (test code = Equal or Less than DIANE) 0.034 ng/ml---Normal ?Note: Cardiac troponin begins to rise 3-4 hours after the onset of ischemia. Repeat in 4-6 hours if the sample was drawn within 3-4 hours of the onset of the symptom and found normal. Between 0.035 and 0.120 ng/mL--- Borderline. Questionable myocardial injury or necrosis ? ?Note: Serial measurement may be necessary to confirm or exclude the diagnosis of myocardial injury or necrosis; Clinical correlation (symptoms, EKGs, imaging studies, and others) required; Repeat in 4-6 hours if clinically indicated. ? Equal or Higher than 0.121 ng/mL---Abnormal. Myocardial Injury or Necrosis Likely ? Biotin has been reported to cause a negative bias, interpret results relative to patient's use of biotin. ? Lab Interpretation Normal (test code = 84543-8) [facility] CenterPOCT GLUCOSE (AUTOMATED)2019-07-18 15:46:00 Test Item Value Reference Range Interpretation Comments POCT GLU (test code = 0002301080) 170 mg/dL 70-110 H Lab Interpretation (test code = Abnormal 09034-3) [facility] ABDOMEN PELVIS W [id number] 15:45:[address] findings of acute intra-abdominal or pelvic abnormality. Mild hepatic steatosis. 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 I, Aditi Mukherjee MD., have reviewed this study and agree with the abovereport.EXAM: CT ABDOMEN AND PELVIS WITH CONTRAST HISTORY: Abd pain, acute, generalized COMPARISON: CT Abdomen and Pelvis with intravenous contrast, 02/13/2019. TECHNIQUE AND FINDINGS: Contiguous axial imaging from the level of the lungbases through the pubic symphysis was performed after the uncomplicatedadministration of 120 cc of intravenous Om nipaque contrast and oralOmnipaque contrast. Coronal and sagittal reconstructions were obtained. FINDINGS: LOWER THORAX: Stable minimal right lower lung fibrosis. Unchanged mildnodularity in the right lower lobe (3:16). Prior median sternotomy surgicalchanges in pacemaker with leads in the right atrium and right ventricle. LIVER: Normal in size and contour. Mild diffusely decreased attenuation ofthe hepatic parenchyma. Stable 0.8 cm segment V/VIII hypoattenuating focitoo small to further characterize, likely hepatic cyst (601:47). GALLBLADDER AND BILIARY TREE: Prior cholecystectomy. The common bile ductis dilated at 1.0 cm, likely reservoir effect. SPLEEN: No splenomegaly. PANCREAS: No ductal dilation or masses. ADRENAL GLANDS: No adrenal nodules. KIDNEYS: Stable 2.6 cm cyst in the anterior interpolar region of the rightkidney. Stable 0.8 hypoattenuating foci, too small to further characterize,likely simple renal cyst. Unchanged nonspecific bilateral perinephric fatstranding. No perinephritic fluid collection. PERITONEUM AND RETROPERITONEUM: No free air or fluid. Small fat containingumbilical hernia. LYMPH NODES: No lymphadenopathy. GI TRACT: No dilation or wall thickening. Redundant sigmoid colon. Thevisualized appendix is unremarkable. PELVIS/BLADDER: The urinary bladder is significantly distended withoutfocal or diffuse thickening of the urinary bladder wall. The prostateappears unremarkable. VESSELS: Mild atherosclerotic calcifications of the abdominal aorta.Unchanged nonopacification of the left common femoral, common iliac,external iliac veins. BONES AND SOFT TISSUES: No suspicious lytic or sclerotic bony lesions.Stable L4- L5 vertebral surgical hardware. Unchanged 1.2 cm osseous fragmentin the right gluteal soft tissues. (3: 1:30). [facility], Radiant Results Inft User - 07/18/2019 9:46 AM CSTEXAM: CT ABDOMEN AND PELVIS WITH CONTRASTHISTORY: Abd pain, acute, generalizedCOMPARISON: CT Abdomen and Pelvis with intravenous contrast, 02/13/2019.TECHNIQUE AND FINDINGS: Contiguous axial imaging from the level of the lungbases through the pubic symphysis was performed after the uncomplicateda dministration of 120 cc of intravenous Omnipaque contrast and oralOmnipaque contrast. Coronal and sagittal reconstructions were obtained.FINDINGS:LOWER THORAX: Stable minimal right lower lung fibrosis.Unchanged mildnodularity in the right lower lobe (3:16). Prior median sternotomy surgicalchanges in pacemaker with leads in the right atrium and right ventricle.LIVER: Normal in size and contour. Mild diffusely decreased attenuation ofthe hepatic parenchyma. Stable 0.8 cm segment V/VIII hypoattenuating focitoo small to further characterize, likely hepatic cyst (601:47).GALLBLADDER AND BILIARY TREE: Prior cholecystectomy. The common bile ductis dilated at 1.0 cm, likely reservoir effect.SPLEEN: No splenomegaly.PANCREAS: No ductal dilation or masses.ADRENAL GLANDS: No adrenal nodules.KIDNEYS: Stable 2.6 cm cyst in the anterior interpolar region of the rightkidney. Stable 0.8 hypoattenuating foci, too small to further characterize,likely simple renal cyst. Unchanged nonspecific bilateral perinephricfatstranding. No perinephritic fluid collection.PERITONEUM AND RETROPERITONEUM: No free air or fluid. Small fat containingumbilical hernia.LYMPH NODES: No lymphadenopathy.GI TRACT: No dilation or wall thickening. Redundant sigmoid colon. Thevisualized appendix is unremarkable.PELVIS/BLADDER: The urinary bladder is significantly distended withoutfocal or diffuse thickening of the urinary bladder wall.The prostateappears unremarkable.VESSELS: Mild atherosclerotic calcifications of the abdominal aorta.Unchanged nonopacification of the left common femoral, common iliac,external iliac veins.BONES AND SOFT TISSUES: No suspicious lytic or sclerotic bony lesions.Stable L4-L5 vertebral surgical hardware. Unchanged 1.2 cm osseous fragmentin the right gluteal soft tissues. (3: 1:30).IMPRESSIONNo CT findings of acute intra-abdominal or pelvic abnormality.Mild hepatic steatosis.Unchanged nonopacification ofthe left common femoral, left internal andleft external iliac veins.IAditi MD., have reviewed this study and agree with the abovereport.[facility]XR FOOT 3+ VW [id number] 15:18:27FINDINGS/IMPRESSION: No ?acute fracture or dislocation. Soft tissue swelling at the plantar aspect of the healed with lucency mayrepresent an ulcer. No underlying bony erosions or periosteal reaction arepresent to suggest osteomyelitis. Vascular calcifications are noted EXAM: XR FOOT 3+ VW LEFT HISTORY: 59 years-old Male heel soft tissue swelling, evaluate to screenfor calcaneal osteomyelitisCOMPARISON: None. [facility], Radiant Results Inft User - 07/18/2019 9:19 AM CSTEXAM: XR FOOT 3+ VW LEFTHISTORY: 59 years-old Male heel soft tissue swelling, evaluate to screenfor calcaneal osteomyelitis COMPARISON: None.IMPRESSIONFINDINGS/IMPRESSION:No acute fracture or dislocation. Soft tissue swelling at the plantar aspect of the healed with lucency mayrepresent an ulcer. No underlying bony erosions or periosteal reaction arepresent to suggest osteomyelitis.Vascular calcifications are notedUnCHI St. Luke's Health – The Vintage HospitalTRVICTOR HUGO [id number] 12:08:00 Test Item Value Reference Range Interpretation Comments TROPONIN I (test 0.013 ng/mL See_Comment [Automated code = 2501156097) message] The system which generated this result transmitted reference range : <=0.034. The reference range was not used to interpret this result as normal/abnormal . DIANE (test code = Equal or Less than DIANE) 0.034 ng/ml---Normal ?Note: Cardiac troponin begins to rise 3-4 hours after the onset of ischemia. Repeat in 4-6 hours if the sample was drawn within 3-4 hours of the onset of the symptom and found normal. Between 0.035 and 0.120 ng/mL--- Borderline. Questionable myocardial injury or necrosis ? ?Note: Serial measurement may be necessary to confirm or exclude the diagnosis of myocardial injury or necrosis; Clinical correlation (symptoms, EKGs, imaging studies, and others) required; Repeat in 4-6 hours if clinically indicated. ? Equal or Higher than 0.121 ng/mL---Abnormal. Myocardial Injury or Necrosis Likely ? Biotin has been reported to cause a negative bias, interpret results relative to patient's use of biotin. ? Lab Interpretation Normal (test code = 59695-2) [facility] CenterLIPASE2020-02-[facility] 11:37:00 Test Item Value Reference Range Interpretation Comments LIPASE (test code = 7062193166) 112 U/L 0-220 Lab Interpretation (test code = Normal 12846-0) [facility] CenterPO[facility] GLUCOSE (AUTOMATED)2019-07-18 10:21:00 Test Item Value Reference Range Interpretation Comments POCT GLU (test code = 0651332306) 253 mg/dL 70-110 H Lab Interpretation (test code = Abnormal 17430-7) [facility] CenterXR CHEST 1 [id number] 05:40:50 No acute cardiopulmonary abnormality. Preliminary Report Dictated by Resident: Pacheco Craft MD., have reviewed this study and agree with the abovereport.XR CHEST 1 VW Comparison: 06/24/2019 History: SOB X 2 days Findings: Left chest wall pacemaker leads are in unchanged position. The lungs are clear. No pleural effusion or pneumothorax. The heart is normal in size. No acute osseous abnormality is detected. [facility], Radiant Results Inft User - 07/17/2019 11:41 PM CSTXR CHEST 1 VWComparison: 06/24/2019History: SOB X 2 days Findings:Left chest wall pacemaker leads are in unchanged position.The lungs are clear.No pleural effusion or pneumothorax. The heart is normal in size. No acute osseous abnormality is detected.IMPRESSIONNo acute cardiopulmonary abnormality.Preliminary Report Dictated by Resident: Matthias Kong, Pacheco Casillas MD., have reviewed this study andagree with the abovereport. [facility] CenterTROPONIN [id number] 04:39:00 Test Item Value Reference Range Interpretation Comments TROPONIN I (test 0.015 ng/mL See_Comment [Automated code = 3859642633) message] The system which generated this result transmitted reference range : <=0.034. The reference range was not used to interpret this result as normal/abnormal . DIANE (test code = Equal or Less than DIANE) 0.034 ng/ml---Normal ?Note: Cardiac troponin begins to rise 3-4 hours after the onset of ischemia. Repeat in 4-6 hours if the sample was drawn within 3-4 hours of the onset of the symptom and found normal. Between 0.035 and 0.120 ng/mL--- Borderline. Questionable myocardial injury or necrosis ? ?Note: Serial measurement may be necessary to confirm or exclude the diagnosis of myocardial injury or necrosis; Clinical correlation (symptoms, EKGs, imaging studies, and others) required; Repeat in 4-6 hours if clinically indicated. ? Equal or Higher than 0.121 ng/mL---Abnormal. Myocardial Injury or Necrosis Likely ? Biotin has been reported to cause a negative bias, interpret results relative to patient's use of biotin. ? Lab Interpretation Normal (test code = 48067-5) [id number] 04:36:00 Test Item Value Reference Range Interpretation Comments NT-proBNP (test code 226 pg/mL See_Comment H [Autom ated = 6939054414) message] The system which generated this result transmitted reference range : <=125. The reference range was not used to interpret this result as normal/abnormal . DIANE (test code = DIANE) Biotin has been reported to cause a negative bias, interpret results relative to patient's use of biotin. Lab Interpretation Abnormal (test code = 12410-6) [facility]. METABOLIC PANEL (25223)2019-07-18 04:27:00 Test Item Value Reference Range Interpretation Comments NA (test code = 138 mmol/L 135-145 3272733988) K (test code = 4.4 mmol/L 3.5-5 2863396369) CL (test code = 102 mmol/L 98-108 2824097861) CO2 TOTAL (test code = 22 mmol/L 23-31 L 1971216291) AGAP (test code = 2-16 4933476929) BUN (test code = 16 mg/dL 7-23 0212151763) GLUCOSE (test code = 373 mg/dL 70-110 H 5197782383) CREATININE (test code = 0.71 mg/dL 0.6-1.25 4174839243) TOTAL BILI (test code = 0.3 mg/dL 0.1-1.7 8908002622) CALCIUM (test code = 10.0 mg/dL 8.6-10.6 2552924533) T PROTEIN (test code = 7.6 g/dL 6.3-8.2 3048758020) ALBUMIN (test code = 4.7 g/dL 3.5-5 5644952429) ALK PHOS (test code = 183 U/L 34-122 H 7024643672) ALTv (test code = 48 U/L 5-50 1742-6) AST(SGOT) (test code = 24 U/L 13-40 2716567506) eGFR Calculation mL/min/1.73m2 (Non-) (test code = 2627630299) eGFR Calculation mL/min/1.73m2 () (test code = 5838038857) DIANE (test code = DIANE) Association of Glomerular Filtration Rate (GFR) and Staging of Kidney Disease* + --+ --+ ------+| GFR (mL/min/1.73 m2) ?| With Kidney Damage ?| ?Without Kidney Damage+ --------+ --------+ +| ?>90 ?| ?Stage one ?| ? Normal ?+ ---+ ---+ -------+| ?60-89 ?| ?Stage two ?| ? Decreased GFR ? + --+ --+ ------+| ?30-59 ?| ?Stage three ?| ? Stage three ? + --+ --+ ------+| ?15-29 ?| ?Stage four ? | ? Stage four ?+ ---+ ---+ -------+| ?<15 (or dialysis) ? ?| ?Stage five ? | ? Stage five ?+ ---+ ---+ -------+ *Each stage assumes the associated GFR level has been in effect for at least three months. ?Stages 1 to 5, with or without kidney disease, indicate chronic kidney disease. Notes: Determination of stages one and two (with eGFR >59mL/min/1.73 m2) requires estimation of kidney damage for at least three months as defined by structural or functional abnormalities of the kidney, manifested by either:Pathological abnormalities or Markers of kidney damage (including abnormalities in the composition of the blood or urine or abnormalities in imaging tests). Lab Interpretation Abnormal (test code = 87840-7) [facility] / [id number] 04:24:00 Test Item Value Reference Range Interpretation Comments PROTIME PATIENT (test See_Comment [Auto mated message] code = 5964-2) The system wh ich generated this result transmitted ref erence range: 12.0 - 1 4.7 Seconds. The re ference range was not u sed to interpret this result as normal/abnor mal. INR (test code = 6301-6) Nor mal INR <1.1; Warfarin Therap eutic range 2.0 to 3. 0 or 2.5 to 3.5, dep ending upon the indica tions. Lab Interpretation (test Normal code = 48124-2) [facility] CenterCBC WITH [id number] 04:14:00 Test Item Value Reference Range Interpretation Comments WBC (test code = See_Comment [Automated 8090-2) message] The sy stem which generated this result transmitted reference range : 4.20 - 10.70 10*3/?L. The reference range was not used to interpret this result as normal/abnormal . RBC (test code = See_Comment L [Automated 689-8) message] The sy stem which generated this result transmitted reference range : 4.26 - 5.52 10*6/?L. The reference range was not used to interpret this result as normal/abnormal . HGB (test code = 11.5 g/dL 12.2-16.4 L 718-7) HCT (test code = 32.8 % 38.4-49.3 L 4544-3) MCV (test code = 87.7 fL 81.7-95.6 787-2) MCH (test code = 30.7 pg 26.1-32.7 785-6) MCHC (test code = 35.1 g/dL 31.2-35 H 786-4) RDW-SD (test code = 44.4 fL 38.5-51.6 87174-6) RDW-CV (test code = 13.8 % 12.1-15.4 788-0) PLT (test code = See_Comment [Automated 777-3) message] The sy stem which generated this result transmitted reference range : 150 - 328 10*3/ ?L. The reference r batsheva was not used to interpret this result as normal/abnormal . MPV (test code = 9.5 fL 9.8-13 L 84843-6) NRBC/100 WBC (test See_Comment [Automat ed code = 5884558257) message] The system which generated this result transmitted reference range : 0.0 - 10.0 /100 WBCs. The refer ence range was not u sed to interpret th is result as normal/abnormal . NRBC x10^3 (test code <0.01 See_Comment [Auto mated = 5733416095) message] The s ystem which generated this result transmitted reference range : 10*3/?L. The reference range was not used to interpret this result as normal/abnormal . GRAN MAT (NEUT) % 66.6 % (test code = 770-8) IMM GRAN % (test code 0.80 % = 3223687566) LYMPH % (test code = 21.8 % 736-9) MONO % (test code = 8.3 % 5905-5) EOS % (test code = 2.2 % 713-8) BASO % (test code = 0.3 % 706-2) GRAN MAT x10^3(ANC) 6.44 10*3/uL 1.99-6.95 (test code = 5966102281) IMM GRAN x10^3 (test 0.08 10*3/uL 0-0.06 H code = 5934537102) LYMPH x10^3 (test code 2.11 10*3/uL 1.09-3.23 = 731-0) MONO x10^3 (test code 0.80 10*3/uL 0.36-1.02 = 742-7) EOS x10^3 (test code = 0.21 10*3/uL 0.06-0.53 711-2) BASO x10^3 (test code 0.03 10*3/uL 0.01-0.09 = 704-7) Lab Interpretation Abnormal (test code = 02308-0) [facility]SE ([facility]2019-06-26 23:26:00 Test Item Value Reference Range Interpretation Comments POCT GLU (test code = 4098782154) 204 mg/dL 70-110 H Lab Interpretation (test code = Abnormal 30452-8) [facility] GLUCOSE (AUTOMATED)2019-06-26 17:53:00 Test Item Value Reference Range Interpretation Comments POCT GLU (test code = 4588046969) 115 mg/dL 70-110 H Lab Interpretation (test code = Abnormal 87619-4) [facility] (NA, K, CL, CO2, GLUCOSE, BUN, CREATININE, CA)2019-06-26 11:15:00 Test Item Value Reference Range Interpretation Comments NA (test code = 138 mmol/L 135-145 2899234759) K (test code = 3.7 mmol/L 3.5-5 8024272316) CL (test code = 109 mmol/L 98-108 H 7141469426) CO2 TOTAL (test code = 20 mmol/L 23-31 L 7939741155) AGAP (test code = 2-16 4757498367) BUN (test code = 10 mg/dL 7-23 9724766554) GLUCOSE (test code = 121 mg/dL 70-110 H 4381239440) CREATININE (test code = 0.40 mg/dL 0.6-1.25 L 2660100727) CALCIUM (test code = 8.0 mg/dL 8.6-10.6 L 3344092906) eGFR Calculation mL/min/1.73m2 (Non-) (test code = 2776675927) eGFR Calculation mL/min/1.73m2 () (test code = 2086045198) DIANE (test code = DIANE) Association of Glomerular Filtration Rate (GFR) and Staging of Kidney Disease* + --+ --+ ------+| GFR (mL/min/1.73 m2) ?| With Kidney Damage ?| ?Without Kidney Damage+ --------+ --------+ +| ?>90 ?| ?Stage one ?| ? Normal ?+ ---+ ---+ -------+| ?60-89 ?| ?Stage two ?| ? Decreased GFR ? + --+ --+ ------+| ?30-59 ?| ?Stage three ?| ? Stage three ? + --+ --+ ------+| ?15-29 ?| ?Stage four ? | ? Stage four ?+ ---+ ---+ -------+| ?<15 (or dialysis) ? ?| ?Stage five ? | ? Stage five ?+ ---+ ---+ -------+ *Each stage assumes the associated GFR level has been in effect for at least three months. ?Stages 1 to 5, with or without kidney disease, indicate chronic kidney disease. Notes: Determination of stages one and two (with eGFR >59mL/min/1.73 m2) requires estimation of kidney damage for at least three months as defined by structural or functional abnormalities of the kidney, manifested by either:Pathological abnormalities or Markers of kidney damage (including abnormalities in the composition of the blood or urine or abnormalities in imaging tests). Lab Interpretation Abnormal (test code = 63038-2) [facility] [id number] 11:15:00 Test Item Value Reference Range Interpretation Comments MAGNESIUM (test code = 4741457705) 1.6 mg/dL 1.7-2.4 L Lab Interpretation (test code = Abnormal 58281-2) [facility] WITH [id number] 10:49:00 Test Item Value Reference Range Interpretation Comments WBC (test code = See_Comment [Automated 3691-2) message] The sy stem which generated this result transmitted reference range : 4.20 - 10.70 10*3/?L. The reference range was not used to interpret this result as normal/abnormal . RBC (test code = See_Comment L [Automated 789-8) message] The sy stem which generated this result transmitted reference range : 4.26 - 5.52 10*6/?L. The reference range was not used to interpret this result as normal/abnormal . HGB (test code = 10.0 g/dL 12.2-16.4 L 718-7) HCT (test code = 29.5 % 38.4-49.3 L 4544-3) MCV (test code = 87.8 fL 81.7-95.6 787-2) MCH (test code = 29.8 pg 26.1-32.7 785-6) MCHC (test code = 33.9 g/dL 31.2-35 786-4) RDW-SD (test code = 41.4 fL 38.5-51.6 83955-2) RDW-CV (test code = 13.2 % 12.1-15.4 788-0) PLT (test code = See_Comment [Automated 777-3) message] The sy stem which generated this result transmitted reference range : 150 - 328 10*3/ ?L. The reference r batsheva was not used to interpret this result as normal/abnormal . MPV (test code = 10.2 fL 9.8-13 17281-7) NRBC/100 WBC (test See_Comment [Automat ed code = 6051155835) message] The system which generated this result transmitted reference range : 0.0 - 10.0 /100 WBCs. The refer ence range was not u sed to interpret th is result as normal/abnormal . NRBC x10^3 (test code <0.01 See_Comment [Auto mated = 1997341021) message] The s ystem which generated this result transmitted reference range : 10*3/?L. The reference range was not used to interpret this result as normal/abnormal . GRAN MAT (NEUT) % 77.6 % (test code = 770-8) IMM GRAN % (test code 0.40 % = 7402221517) LYMPH % (test code = 13.8 % 736-9) MONO % (test code = 6.6 % 5905-5) EOS % (test code = 1.5 % 713-8) BASO % (test code = 0.1 % 706-2) GRAN MAT x10^3(ANC) 5.29 10*3/uL 1.99-6.95 (test code = 2386867429) IMM GRAN x10^3 (test 0.03 10*3/uL 0-0.06 code = 7529086966) LYMPH x10^3 (test code 0.94 10*3/uL 1.09-3.23 L = 731-0) MONO x10^3 (test code 0.45 10*3/uL 0.36-1.02 = 742-7) EOS x10^3 (test code = 0.10 10*3/uL 0.06-0.53 711-2) BASO x10^3 (test code <0.03 0.01-0.09 = 704-7) Lab Interpretation Abnormal (test code = 96751-9) [facility] - Initial blood draw to be done 2 hours after procedure.2019-06-26 06:11:00 Test Item Value Reference Range Interpretation Comments APTT Patient (test code = See_Comment [ Automated message] 3173-2) The system [employer] generated this result transmitted ref erence range: 26 - 36 Seconds. The re ference range was not u sed to interpret this result as normal/abnor mal. Lab Interpretation (test Normal code = 29492-1) [facility] - Initial blood draw to be done 2 hours after procedure.2019-06-26 03:12:00 Test Item Value Reference Range Interpretation Comments APTT Patient (test code See_Comment H [Au tomated message] = 3173-2) The system [employer] generated this result transmitted ref erence range: 26 - 36 Seconds. The reference range was not used to int erpret this result as normal/abnormal . Lab Interpretation (test Abnormal code = 52328-2) [facility] GLUCOSE (AUTOMATED)2019-06-26 02:47:00 Test Item Value Reference Range Interpretation Comments POCT GLU (test code = 4511195435) 165 mg/dL 70-110 H Lab Interpretation (test code = Abnormal 80376-8) [facility] (for use with Heparin Practice Guideline). Note: Draw and Send all Lab STAT.2019-06-26 00:55:00 Test Item Value Reference Range Interpretation Comments APTT Patient (test code >150 See_Comment HH [Au tomated message] = 3173-2) The system [employer] generated this result transmitted ref erence range: 26 - 36 Seconds. The reference range was not used to int erpret this result as normal/abnormal . Lab Interpretation (test Abnormal code = 97355-9) [facility] GLUCOSE (AUTOMATED)2019-06-25 21:53:00 Test Item Value Reference Range Interpretation Comments POCT GLU (test code = 6767244446) 178 mg/dL 70-110 H Lab Interpretation (test code = Abnormal 87687-2) [facility] ACT LOW [id number] 21:14:00 Test Item Value Reference Range Interpretation Comments ACTLR (test code = See_Comment H [Automat ed message] 3885641027) The system [employer] generated this result transmitted ref erence range: 89 - 169 Seconds. The reference range was not used to int erpret this result as normal/abnormal . Lab Interpretation (test Abnormal code = 17149-9) [facility] ACT LOW [id number] 19:29:00 Test Item Value Reference Range Interpretation Comments ACTLR (test code = See_Comment H [Automat ed message] 7456676999) The system [employer] generated this result transmitted ref erence range: 89 - 169 Seconds. The reference range was not used to int erpret this result as normal/abnormal . Lab Interpretation (test Abnormal code = 00302-5) [facility] GLUCOSE (AUTOMATED)2019-06-25 16:14:00 Test Item Value Reference Range Interpretation Comments POCT GLU (test code = 0532707346) 195 mg/dL 70-110 H Lab Interpretation (test code = Abnormal 16376-0) [facility] CenterGAL[facility]CLC [facility] - URINE DRUG (IMMUNOASSAY) - COMPREHENSIVE DRUG [id number] 10:50:00 Test Item Value Reference Range Interpretation Comments AMPHET (test code = Negative Negative 1541907832) JUNG U (test code = Negative Negative 3251058432) BENZO U (test code = Negative Negative 5373923211) Cocaine Metabolite (test Negative Negative code = 2241943939) METHADONE (test code = Negative Negative 6572989855) OPIATES (test code = Presumptive Positive Negative A 3507340052) PCP (test code = Negative Negative 3595895345) THC (test code = Negative Negative 3604138879) DIANE (test code = DIANE) Urine Drug Cutoff Ranges Cocaine: ? 150 ng/mLBenzodiazepines: ? ? 200 ng/mLMethadone: ? 300 ng/mLAmphetamine: ? 1,000 ng/mLOpiates: ? 300 ng/mLCannabinoids: ?50 ng/mLPhencyclidine: ? ? ? 25 ng/mLBarbiturates: ?200 ng/mL The results are to be used only for medical (i.e., treatment) purposes. Unconfirmed screening results must not be used for non-medical purposes (e.g., employment testing, legal testing). Lab Interpretation (test Abnormal code = 17253-1) [facility] Metabolic Panel (NA, K, CL, CO2, GLUCOSE, BUN, CREATININE, CA)2019-06-25 10:18:00 Test Item Value Reference Range Interpretation Comments NA (test code = 138 mmol/L 135-145 9423308597) K (test code = 3.2 mmol/L 3.5-5 L 1919794033) CL (test code = 108 mmol/L 98-108 1551560927) CO2 TOTAL (test code = 23 mmol/L 23-31 9341064873) AGAP (test code = 2-16 7610631017) BUN (test code = 17 mg/dL 7-23 7759142669) GLUCOSE (test code = 177 mg/dL 70-110 H 5265474296) CREATININE (test code = 0.61 mg/dL 0.6-1.25 7647063251) CALCIUM (test code = 8.4 mg/dL 8.6-10.6 L 0743456866) eGFR Calculation mL/min/1.73m2 (Non-) (test code = 5086080410) eGFR Calculation mL/min/1.73m2 () (test code = 3516712022) DIANE (test code = DIANE) Association of Glomerular Filtration Rate (GFR) and Staging of Kidney Disease* + --+ --+ ------+| GFR (mL/min/1.73 m2) ?| With Kidney Damage ?| ?Without Kidney Damage+ --------+ --------+ +| ?>90 ?| ?Stage one ?| ? Normal ?+ ---+ ---+ -------+| ?60-89 ?| ?Stage two ?| ? Decreased GFR ? + --+ --+ ------+| ?30-59 ?| ?Stage three ?| ? Stage three ? + --+ --+ ------+| ?15-29 ?| ?Stage four ? | ? Stage four ?+ ---+ ---+ -------+| ?<15 (or dialysis) ? ?| ?Stage five ? | ? Stage five ?+ ---+ ---+ -------+ *Each stage assumes the associated GFR level has been in effect for at least three months. ?Stages 1 to 5, with or without kidney disease, indicate chronic kidney disease. Notes: Determination of stages one and two (with eGFR >59mL/min/1.73 m2) requires estimation of kidney damage for at least three months as defined by structural or functional abnormalities of the kidney, manifested by either:Pathological abnormalities or Markers of kidney damage (including abnormalities in the composition of the blood or urine or abnormalities in imaging tests). Lab Interpretation Abnormal (test code = 34828-8) [facility] CenterMagnesium [id number] 10:18:00 Test Item Value Reference Range Interpretation Comments MAGNESIUM (test code = 8750902792) 1.9 mg/dL 1.7-2.4 Lab Interpretation (test code = Normal 43888-6) [facility] CenterTroponin [id number] 10:16:00 Test Item Value Reference Range Interpretation Comments TROPONIN I (test 0.018 ng/mL See_Comment [Automated code = 4467677038) message] The system which generated this result transmitted reference range : <=0.034. The reference range was not used to interpret this result as normal/abnormal . DIANE (test code = Equal or Less than DIANE) 0.034 ng/ml---Normal ?Note: Cardiac troponin begins to rise 3-4 hours after the onset of ischemia. Repeat in 4-6 hours if the sample was drawn within 3-4 hours of the onset of the symptom and found normal. Between 0.035 and 0.120 ng/mL--- Borderline. Questionable myocardial injury or necrosis ? ?Note: Serial measurement may be necessary to confirm or exclude the diagnosis of myocardial injury or necrosis; Clinical correlation (symptoms, EKGs, imaging studies, and others) required; Repeat in 4-6 hours if clinically indicated. ? Equal or Higher than 0.121 ng/mL---Abnormal. Myocardial Injury or Necrosis Likely ? Biotin has been reported to cause a negative bias, interpret results relative to patient's use of biotin. ? Lab Interpretation Normal (test code = 22000-7) [facility] (for use with Heparin Practice Guideline). Note: Draw and Send all Lab STAT.2019-06-25 09:59:00 Test Item Value Reference Range Interpretation Comments APTT Patient (test code See_Comment HH [Au tomated message] = 1503-2) The system [employer] generated this result transmitted ref erence range: 26 - 36 Seconds. The reference range was not used to int erpret this result as normal/abnormal . Lab Interpretation (test Abnormal code = 20059-7) [facility] CenterUREA NITROGEN, URINE [id number] 09:46:00 Test Item Value Reference Range Interpretation Comments UREA N UR (test code = 3678273702) 511 mg/dL [facility] CenterCREATININE, URINE [id number] 09:46:00 Test Item Value Reference Range Interpretation Comments CREAT U (test code = 7124482522) 114.4 mg/dL [facility] CenterSODIUM, URINE [id number] 09:46:00 Test Item Value Reference Range Interpretation Comments NA URINE (test code = 9929694713) 109 mmol/L [facility] CenterCBC WITH [id number] 09:33:00 Test Item Value Reference Range Interpretation Comments WBC (test code = See_Comment [Automated 3890-2) message] The sy stem which generated this result transmitted reference range : 4.20 - 10.70 10*3/?L. The reference range was not used to interpret this result as normal/abnormal . RBC (test code = See_Comment L [Automated 789-8) message] The sy stem which generated this result transmitted reference range : 4.26 - 5.52 10*6/?L. The reference range was not used to interpret this result as normal/abnormal . HGB (test code = 11.0 g/dL 12.2-16.4 L 718-7) HCT (test code = 32.1 % 38.4-49.3 L 4544-3) MCV (test code = 87.5 fL 81.7-95.6 787-2) MCH (test code = 30.0 pg 26.1-32.7 785-6) MCHC (test code = 34.3 g/dL 31.2-35 786-4) RDW-SD (test code = 41.6 fL 38.5-51.6 67960-4) RDW-CV (test code = 12.9 % 12.1-15.4 788-0) PLT (test code = See_Comment [Automated 777-3) message] The sy stem which generated this result transmitted reference range : 150 - 328 10*3/ ?L. The reference r batsheva was not used to interpret this result as normal/abnormal . MPV (test code = 10.1 fL 9.8-13 56337-4) NRBC/100 WBC (test See_Comment [Automat ed code = 0650549260) message] The system which generated this result transmitted reference range : 0.0 - 10.0 /100 WBCs. The refer ence range was not u sed to interpret th is result as normal/abnormal . NRBC x10^3 (test code <0.01 See_Comment [Auto mated = 2340581209) message] The s ystem which generated this result transmitted reference range : 10*3/?L. The reference range was not used to interpret this result as normal/abnormal . GRAN MAT (NEUT) % 43.0 % (test code = 770-8) IMM GRAN % (test code 0.50 % = 5817479282) LYMPH % (test code = 43.4 % 736-9) MONO % (test code = 9.7 % 5905-5) EOS % (test code = 3.2 % 713-8) BASO % (test code = 0.2 % 706-2) GRAN MAT x10^3(ANC) 2.38 10*3/uL 1.99-6.95 (test code = 2725725578) IMM GRAN x10^3 (test 0.03 10*3/uL 0-0.06 code = 9147756038) LYMPH x10^3 (test code 2.41 10*3/uL 1.09-3.23 = 731-0) MONO x10^3 (test code 0.54 10*3/uL 0.36-1.02 = 742-7) EOS x10^3 (test code = 0.18 10*3/uL 0.06-0.53 711-2) BASO x10^3 (test code <0.03 0.01-0.09 = 704-7) Lab Interpretation Abnormal (test code = 45915-1) [facility] CenterRaven [id number] 03:14:00 Test Item Value Reference Range Interpretation Comments TROPONIN I (test 0.009 ng/mL See_Comment [Automated code = 9803105768) message] The system which generated this result transmitted reference range : <=0.034. The reference range was not used to interpret this result as normal/abnormal . DIANE (test code = Equal or Less than DIANE) 0.034 ng/ml---Normal ?Note: Cardiac troponin begins to rise 3-4 hours after the onset of ischemia. Repeat in 4-6 hours if the sample was drawn within 3-4 hours of the onset of the symptom and found normal. Between 0.035 and 0.120 ng/mL--- Borderline. Questionable myocardial injury or necrosis ? ?Note: Serial measurement may be necessary to confirm or exclude the diagnosis of myocardial injury or necrosis; Clinical correlation (symptoms, EKGs, imaging studies, and others) required; Repeat in 4-6 hours if clinically indicated. ? Equal or Higher than 0.121 ng/mL---Abnormal. Myocardial Injury or Necrosis Likely ? Biotin has been reported to cause a negative bias, interpret results relative to patient's use of biotin. ? Lab Interpretation Normal (test code = 91454-4) [facility] (for use with Heparin Practice Guideline). Note: Draw and Send all Lab STAT.2019-06-25 03:06:00 Test Item Value Reference Range Interpretation Comments APTT Patient (test code = See_Comment [ Automated message] 3173-2) The system [employer] generated this result transmitted ref erence range: 26 - 36 Seconds. The re ference range was not u sed to interpret this result as normal/abnor mal. Lab Interpretation (test Normal code = 80141-5) [facility] CenterGLYCOSYLATED HEMOGLOBIN (A1C)2019-06-25 03:04:00 Test Item Value Reference Interpretation Comments Range HGB A1C (test code = See_Comment H [Autom ated 4328-4) message] The system which generated this result transmitted reference range : 4.0 - 6.0 % NGSP. The reference range was not used to interpret this result as normal/abnormal . DIANE (test code = %A1C (NGSP) DIANE) Interpretation (ADA)4.8-5.6 ? ? Normal or (Non-Diabetic Range)5.7-6.4 ? ? Increased Risk (Pre-Diabetic)>6.5 ?Diabetes Indicated Lab Interpretation Abnormal (test code = 53458-3) [facility] CenterPhosphorus [id number] 02:59:00 Test Item Value Reference Range Interpretation Comments PHOSPHORUS (test code = 0500319812) 3.2 mg/dL 2.5-5 Lab Interpretation (test code = Normal 55147-5) [facility]2019-06-25 02:27:00 Test Item Value Reference Range Interpretation Comments POCT GLU (test code = 9965438302) 256 mg/dL 70-110 H Lab Interpretation (test code = Abnormal 32055-5) [facility] CenterUrinalysis2020-02-03 23:02:00 Test Item Value Reference Range Interpretation Comments APPEARANCE (test code = Other Clear A 4599314318) COLOR (test code = Yellow Yellow 7362271909) PH (test code = 4.8-8.0 9826840980) SP GRAVITY (test code = <=1.005 1.003-1.030 2882648025) GLU U QUAL (test code = >1000 mg/dL Negative A 9498024489) BLOOD (test code = Negative Negative 3701737111) KETONES (test code = Trace Negative A 7904697527) PROTEIN (test code = Negative Negative 2887-8) UROBILIN (test code = 0.2 mg/dL See_Comment [Auto mated 7536434555) message] The sy stem which generated this result transmitted reference range : 0-1.0 mg/dL. Th e reference range was not used to interpret this result as normal/abnormal . BILIRUBIN (test code = Negative Negative 1386582611) NITRITE (test code = Negative Negative 5532322783) LEUK PETER (test code = Negative Negative 4903917650) RBC/HPF (test code = See_Comment [Autom ated 2716618501) message] The sy stem which generated this result transmitted reference range : 0 - 3 HPF. The reference range was not used to interpret this result as normal/abnormal . WBC/HPF (test code = See_Comment [Autom ated 6435377317) message] The sy stem which generated this result transmitted reference range : 0 - 5 HPF. The reference range was not used to interpret this result as normal/abnormal . BACTERIA (test code = Few Negative A 5867685393) MUCOUS (test code = Moderate Negative LPF A 4330834330) AMORPHOUS (test code = Few Rare HPF A 4770059565) SQ EPITH (test code = HPF 7956888431) WBC CLUMPS (test code = See_Comment [Au tomated 8898439604) message] The sy stem which generated this result transmitted reference range : <=1 HPF. The reference range was not used to interpret this result as normal/abnormal . Lab Interpretation Abnormal (test code = 22063-5) [facility] CenterTHYROID STIMULATING [id number] 22:45:00 Test Item Value Reference Range Interpretation Comments TSH (test code = See_Comment [Automated message] 3464927552) The system whic h generated this result transmitted ref erence range: 0.45 - 4 .70 mIU/L. The refe rence range was not u sed to interpret this result as normal/abnor mal. Lab Interpretation (test Normal code = 74482-9) [facility] CenterTroponin [id number] 22:27:00 Test Item Value Reference Range Interpretation Comments TROPONIN I (test <0.012 See_Comment [Automated code = 2571080989) message] The system which generated this result transmitted reference range : <=0.034 ng/mL. The reference range was not used to interpr et this result as normal/abnormal . DIANE (test code = Equal or Less than DIANE) 0.034 ng/ml---Normal ?Note: Cardiac troponin begins to rise 3-4 hours after the onset of ischemia. Repeat in 4-6 hours if the sample was drawn within 3-4 hours of the onset of the symptom and found normal. Between 0.035 and 0.120 ng/mL--- Borderline. Questionable myocardial injury or necrosis ? ?Note: Serial measurement may be necessary to confirm or exclude the diagnosis of myocardial injury or necrosis; Clinical correlation (symptoms, EKGs, imaging studies, and others) required; Repeat in 4-6 hours if clinically indicated. ? Equal or Higher than 0.121 ng/mL---Abnormal. Myocardial Injury or Necrosis Likely ? Biotin has been reported to cause a negative bias, interpret results relative to patient's use of biotin. ? Lab Interpretation Normal (test code = 51636-5) [facility] CenterN-TERMINAL [id number] 22:24:00 Test Item Value Reference Range Interpretation Comments NT-proBNP (test code 302 pg/mL See_Comment H [Autom ated = 0745240767) message] The system which generated this result transmitted reference range : <=125. The reference range was not used to interpret this result as normal/abnormal . DIANE (test code = DIANE) Biotin has been reported to cause a negative bias, interpret results relative to patient's use of biotin. Lab Interpretation Abnormal (test code = 18897-9) [facility] CenterHepatic Function Panel (ALB, T.PRO, BILI T, BU/BC, ALT, AST, ALK PHOS)2019-06-24 22:23:00 Test Item Value Reference Range Interpretation Comments TOTAL BILI (test code = 1303918009) 0.7 mg/dL 0.1-1.1 BILI UNCON (test code = 5050828090) 0.6 mg/dL 0.1-1.1 BILI CONJ (test code = 8243320382) 0.0 mg/dL 0-0.3 T PROTEIN (test code = 6750047570) 7.6 g/dL 6.3-8.2 ALBUMIN (test code = 8778746865) 4.9 g/dL 3.5-5 ALK PHOS (test code = 5244487850) 121 U/L 34-122 ALTv (test code = 1742-6) 25 U/L 5-50 AST(SGOT) (test code = 1512277070) 28 U/L 13-40 Lab Interpretation (test code = Normal 22803-3) [facility] CenterMAGNESIUM2020-02-03 22:17:00 Test Item Value Reference Range Interpretation Comments MAGNESIUM (test code = 1879546959) 1.9 mg/dL 1.7-2.4 Lab Interpretation (test code = Normal 34625-4) [facility] (NA, K, CL, CO2, GLUCOSE, BUN, CREATININE, CA)2019-06-24 22:16:00 Test Item Value Reference Range Interpretation Comments NA (test code = 139 mmol/L 135-145 4637643790) K (test code = 4.3 mmol/L 3.5-5 4062446732) CL (test code = 101 mmol/L 98-108 7477362111) CO2 TOTAL (test code = 21 mmol/L 23-31 L 3750274440) AGAP (test code = 2-16 H 8285827063) BUN (test code = 18 mg/dL 7-23 9372771607) GLUCOSE (test code = 422 mg/dL 70-110 H 8199223957) CREATININE (test code = 1.62 mg/dL 0.6-1.25 H 9405641997) CALCIUM (test code = 10.1 mg/dL 8.6-10.6 1595703554) eGFR Calculation mL/min/1.73m2 (Non-) (test code = 4855009214) eGFR Calculation mL/min/1.73m2 () (test code = 8416743488) DIANE (test code = DIANE) Association of Glomerular Filtration Rate (GFR) and Staging of Kidney Disease* + --+ --+ ------+| GFR (mL/min/1.73 m2) ?| With Kidney Damage ?| ?Without Kidney Damage+ --------+ --------+ +| ?>90 ?| ?Stage one ?| ? Normal ?+ ---+ ---+ -------+| ?60-89 ?| ?Stage two ?| ? Decreased GFR ? + --+ --+ ------+| ?30-59 ?| ?Stage three ?| ? Stage three ? + --+ --+ ------+| ?15-29 ?| ?Stage four ? | ? Stage four ?+ ---+ ---+ -------+| ?<15 (or dialysis) ? ?| ?Stage five ? | ? Stage five ?+ ---+ ---+ -------+ *Each stage assumes the associated GFR level has been in effect for at least three months. ?Stages 1 to 5, with or without kidney disease, indicate chronic kidney disease. Notes: Determination of stages one and two (with eGFR >59mL/min/1.73 m2) requires estimation of kidney damage for at least three months as defined by structural or functional abnormalities of the kidney, manifested by either:Pathological abnormalities or Markers of kidney damage (including abnormalities in the composition of the blood or urine or abnormalities in imaging tests). Lab Interpretation Abnormal (test code = 29965-6) [facility] CenterProthrombin Time (PT) / [id number] 21:52:00 Test Item Value Reference Range Interpretation Comments PROTIME PATIENT (test See_Comment [Auto mated message] code = 5964-2) The system apiOmat generated this result transmitted ref erence range: 12.0 - 1 4.7 Seconds. The re ference range was not u sed to interpret this result as normal/abnor mal. INR (test code = 6301-6) Nor mal INR <1.1; Warfarin Therap eutic range 2.0 to 3. 0 or 2.5 to 3.5, dep ending upon the indica tions. Lab Interpretation (test Normal code = 35940-9) [facility] WITH [id number] 21:47:00 Test Item Value Reference Range Interpretation Comments WBC (test code = See_Comment [Automated 6690-2) message] The sy stem which generated this result transmitted reference range : 4.20 - 10.70 10*3/?L. The reference range was not used to interpret this result as normal/abnormal . RBC (test code = See_Comment [Automated 789-8) message] The sy stem which generated this result transmitted reference range : 4.26 - 5.52 10*6/?L. The reference range was not used to interpret this result as normal/abnormal . HGB (test code = 12.9 g/dL 12.2-16.4 718-7) HCT (test code = 37.6 % 38.4-49.3 L 4544-3) MCV (test code = 84.9 fL 81.7-95.6 787-2) MCH (test code = 29.1 pg 26.1-32.7 785-6) MCHC (test code = 34.3 g/dL 31.2-35 786-4) RDW-SD (test code = 38.1 fL 38.5-51.6 L 75767-8) RDW-CV (test code = 12.5 % 12.1-15.4 788-0) PLT (test code = See_Comment [Automated 777-3) message] The sy stem which generated this result transmitted reference range : 150 - 328 10*3/ ?L. The reference r batsheva was not used to interpret this result as normal/abnormal . MPV (test code = 10.6 fL 9.8-13 98773-3) NRBC/100 WBC (test See_Comment [Automat ed code = 6847178105) message] The system which generated this result transmitted reference range : 0.0 - 10.0 /100 WBCs. The refer ence range was not u sed to interpret th is result as normal/abnormal . NRBC x10^3 (test code <0.01 See_Comment [Auto mated = 7100256453) message] The s ystem which generated this result transmitted reference range : 10*3/?L. The reference range was not used to interpret this result as normal/abnormal . GRAN MAT (NEUT) % 62.1 % (test code = 770-8) IMM GRAN % (test code 0.40 % = 2246829144) LYMPH % (test code = 29.3 % 736-9) MONO % (test code = 6.9 % 5905-5) EOS % (test code = 0.9 % 713-8) BASO % (test code = 0.4 % 706-2) GRAN MAT x10^3(ANC) 4.84 10*3/uL 1.99-6.95 (test code = 5488225550) IMM GRAN x10^3 (test 0.03 10*3/uL 0-0.06 code = 7606679783) LYMPH x10^3 (test code 2.28 10*3/uL 1.09-3.23 = 731-0) MONO x10^3 (test code 0.54 10*3/uL 0.36-1.02 = 742-7) EOS x10^3 (test code = 0.07 10*3/uL 0.06-0.53 711-2) BASO x10^3 (test code 0.03 10*3/uL 0.01-0.09 = 704-7) Lab Interpretation Abnormal (test code = 34609-4) [facility] 1 [id number] 21:34:11CHEST PORTABLE ONE VIEW HISTORY:Chest pain TECHNIQUE: Frontal, portable projection of the chest is obtained. COMPARISON: 01/24/2019 FINDINGS: The lungs are clear. The heart size and mediastinal silhouetteare normal. No pleural effusion or pneumothorax is seen. CONCLUSIONS: No acute cardiopulmonary disease. [facility], Radiant Results Inft User - 06/24/2019 3:35 PM CSTCHEST PORTABLE ONE VIEWHISTORY:Chest pain TECHNIQUE: Frontal, portable projection of the chest is obtained.COMPARISON: 01/24/2019FINDINGS: The lungs are clear. The heart size and mediastinal silhouetteare normal. No pleural effusion or pneumothorax is seen.CONCLUSIONS: No acute cardiopulmonary disease.[facility] SCROTUM AND [id number] 02:23:24 Bilateral epididymal head cysts. Heterogeneous epididymal echotexture is nonspecific but may representchanges of early epididymitis. Clinical correlation is required. No evidence of pseudoaneurysm or hematoma in the right femoral vein in theregion of recent catheterization. IDevin?MD Daniel., have reviewed this study and agree withthe above report.HISTORY: testicular pain, swelling, ecchymosis following cardiac PCI rightfemoral artery evaluate right femoral artery at site of catheterization forpseudoaneurysm?. SCROTAL ULTRASOUND FINDINGS: RIGHT TESTICLE: Normal size, shape, and echotexture without a focal lesion.The right testicle measures 3.8 x 1.7 x 3.0 cm. LEFT TESTICLE: Normal size, shape, and echotexture without a focal lesion.The left testicle measures 3.5 x 2.0 x 3.3 cm.EPIDIDYMIDES: Both epididymides demonstrate normal contour and size withslightly heterogeneous echotexture. Subcentimeter epididymal head cysts arevisualized bilaterally. The right epididymal head measures 0.9 x 1.0 x 0.9cm. The left femoral head measures 0.6 x 1.3 x 0.7 cm. BLOOD FLOW: Symmetric blood flow by color Doppler evaluation. SCROTUM: No hydrocele. VARICOCELE: None. Additional limited ultras ound evaluation of the right groin in the regionof recent catheterization demonstrates unremarkable femoral vasculaturewithout evidence of pseudoaneurysm, vascular malformation, or hematoma. Amorphologically normal right inguinal lymph node measures 2.0 cm in length. [facility], Radiant Results Inft User - 02/05/2019 9:23 PM CDTHISTORY: testicular pain, swelling, ecchymosis following cardiac PCI rightfemoral artery evaluate right femoral artery at site of catheterization forpseudoaneurysm .SCROTAL ULTRASOUNDFINDINGS: RIGHT TESTICLE: Normal size, shape, and echotexture without a focal lesion.The right testicle measures 3.8 x 1.7 x 3.0 cm. LEFT TESTICLE: Normal size, shape, and echotexture without a focal lesion.The left testicle measures 3.5 x 2.0 x 3.3 cm. EPIDIDYMIDES: Both epididymides demonstrate normal contour and size withslightly heterogeneous echotexture. Subcentimeter epididymal head cysts arevisualized bilaterally. The right epididymal head measures 0.9 x 1.0 x 0.9cm. The left femoral headmeasures 0.6 x 1.3 x 0.7 cm.BLOOD FLOW: Symmetric blood flow by color Doppler evaluation.SCROTUM: Nohydrocele.VARICOCELE: None.Additional limited ultrasound evaluation of the right groin in the regionof recent catheterization demonstrates unremarkable femoral vasculaturewithout evidence of pseudoaneurysm, vascular malformation, or hematoma. Amorphologically normal right inguinal lymph node measures 2.0 cm in length.IMPRESSIONBilateral epididymal head cysts. Heterogeneous epididymal echotexture is nonspecific but may representchanges of early epididymitis. Clinical correlation is required.No evidence of pseudoaneurysm or hematoma in the right femoral vein in theregion of recent catheterization.I, Devin Sanchez MD., have reviewed this study and agree withthe above report.[facility] (NA, K, CL, CO2, GLUCOSE, BUN, CREATININE, CA)2019-02-06 00:13:00 Test Item Value Reference Range Interpretation Comments NA (test code = 140 mmol/L 135-145 5320134368) K (test code = 4.3 mmol/L 3.5-5 7367665234) CL (test code = 103 mmol/L 98-108 8947808186) CO2 TOTAL (test code = 22 mmol/L 23-31 L 1528013085) AGAP (test code = 2-16 3817668009) BUN (test code = 20 mg/dL 7-23 4291101020) GLUCOSE (test code = 429 mg/dL 70-110 H 7162988975) CREATININE (test code = 0.74 mg/dL 0.6-1.25 0114786230) CALCIUM (test code = 10.1 mg/dL 8.6-10.6 1081227146) eGFR Calculation mL/min/1.73m2 (Non-) (test code = 8519812768) eGFR Calculation mL/min/1.73m2 () (test code = 7847693746) DIANE (test code = DIANE) Association of Glomerular Filtration Rate (GFR) and Staging of Kidney Disease*+ + + +| GFR (mL/min/1.73 m2)?| With Kidney Damage?|?Without Kidney Damage+ --------+ --------+ +|?>90?|?S tage one?|? Normal??+ + + +|?60-89 ?|?Stage two?|? Decreased GFR? + --+ --+ ------+|?30-59?|?Stage three?|? Stage three? + --+ --+ ------+|?15-29?|?Stage four? |? Stage four?+ -------+ -------+ +|?<15 (or dialysis)?|?Stage five? |? Stage five?+ -------+ -------+ +*Each stage assumes the associated GFR level has been in effect for at least three months.?Stages 1 to 5, with or without kidney disease, indicate chronic kidney disease.Notes: Determination of stages one and two (with eGFR >59mL/min/1.73 m2) requires estimation of kidney damage for at least three months as defined by structural or functional abnormalities of the kidney, manifested by either:Pathological abnormalities or Markers of kidney damage (including abnormalities in the composition of the blood or urine or abnormalities in imaging tests). Lab Interpretation Abnormal (test code = 82918-4) [facility] Center[facility]IN[facility]IS2019-[facility]-17 23:50:00 Test Item Value Reference Range Interpretation Comments APPEARANCE (test code = Clear Clear 8727888474) COLOR (test code = Yellow Yellow 3289932339) PH (test code = 4.8-8.0 0577834243) SP GRAVITY (test code = <=1.005 1.003-1.030 3239459421) GLU U QUAL (test code = >1000 mg/dL Negative A 4575191526) BLOOD (test code = Negative Negative 2405320335) KETONES (test code = Negative Negative 0734846104) PROTEIN (test code = Negative Negative 2887-8) UROBILIN (test code = 0.2 mg/dL See_Comment [Auto mated 6100250831) message] The sy stem which generated this result transmitted reference range : 0-1.0 mg/dL. Th e reference range was not used to interpret this result as normal/abnormal . BILIRUBIN (test code = Negative Negative 9661494086) NITRITE (test code = Negative Negative 9099953118) LEUK PETER (test code = Negative Negative 4387824329) RBC/HPF (test code = See_Comment [Autom ated 3642885954) message] The sy stem which generated this result transmitted reference range : 0 - 3 HPF. The reference range was not used to interpret this result as normal/abnormal . WBC/HPF (test code = See_Comment [Autom ated 9787447357) message] The sy stem which generated this result transmitted reference range : 0 - 5 HPF. The reference range was not used to interpret this result as normal/abnormal . BACTERIA (test code = Negative Negative 7552566338) Lab Interpretation Abnormal (test code = 61102-6) [facility] WITH [id number] 23:35:00 Test Item Value Reference Range Interpretation Comments WBC (test code = See_Comment [Automated 6690-2) message] The sy stem which generated this result transmitted reference range : 4.20 - 10.70 10*3/?L. The reference range was not used to interpret this result as normal/abnormal . RBC (test code = See_Comment L [Automated 789-8) message] The sy stem which generated this result transmitted reference range : 4.26 - 5.52 10*6/?L. The reference range was not used to interpret this result as normal/abnormal . HGB (test code = 10.7 g/dL 12.2-16.4 L 718-7) HCT (test code = 31.6 % 38.4-49.3 L 4544-3) MCV (test code = 87.3 fL 81.7-95.6 787-2) MCH (test code = 29.6 pg 26.1-32.7 785-6) MCHC (test code = 33.9 g/dL 31.2-35 786-4) RDW-SD (test code = 41.7 fL 38.5-51.6 09053-6) RDW-CV (test code = 13.1 % 12.1-15.4 788-0) PLT (test code = See_Comment [Automated 777-3) message] The sy stem which generated this result transmitted reference range : 150 - 328 10*3/ ?L. The reference r batsheva was not used to interpret this result as normal/abnormal . MPV (test code = 10.0 fL 9.8-13 94304-1) NRBC/100 WBC (test See_Comment [Automat ed code = 9057059791) message] The system which generated this result transmitted reference range : 0.0 - 10.0 /100 WBCs. The refer ence range was not u sed to interpret th is result as normal/abnormal . NRBC x10^3 (test code <0.01 See_Comment [Auto mated = 0137839682) message] The s ystem which generated this result transmitted reference range : 10*3/?L. The reference range was not used to interpret this result as normal/abnormal . GRAN MAT (NEUT) % 62.6 % (test code = 770-8) IMM GRAN % (test code 0.60 % = 4955683562) LYMPH % (test code = 24.3 % 736-9) MONO % (test code = 8.1 % 5905-5) EOS % (test code = 3.9 % 713-8) BASO % (test code = 0.5 % 706-2) GRAN MAT x10^3(ANC) 3.96 10*3/uL 1.99-6.95 (test code = 0334886096) IMM GRAN x10^3 (test 0.04 10*3/uL 0-0.06 code = 1566764584) LYMPH x10^3 (test code 1.54 10*3/uL 1.09-3.23 = 731-0) MONO x10^3 (test code 0.51 10*3/uL 0.36-1.02 = 742-7) EOS x10^3 (test code = 0.25 10*3/uL 0.06-0.53 711-2) BASO x10^3 (test code 0.03 10*3/uL 0.01-0.09 = 704-7) Lab Interpretation Abnormal (test code = 74200-1) [facility] GLUCOSE (AUTOMATED)2019-01-29 16:48:00 Test Item Value Reference Range Interpretation Comments POCT GLU (test code = 275 mg/dL 70-110 H 8057495104) DIANE (test code = DIANE) Notified Provider Lab Interpretation (test Abnormal code = 19868-6) [facility] GLUCOSE (AUTOMATED)2019-01-29 14:48:00 Test Item Value Reference Range Interpretation Comments POCT GLU (test code = 3386664381) 256 mg/dL 70-110 H Lab Interpretation (test code = Abnormal 39239-8) [facility] METABOLIC PANEL (NA, K, CL, CO2, GLUCOSE, BUN, CREATININE, CA)2019-01-29 09:54:00 Test Item Value Reference Range Interpretation Comments NA (test code = 137 mmol/L 135-145 9394422441) K (test code = 3.6 mmol/L 3.5-5 0638241879) CL (test code = 107 mmol/L 98-108 3509096311) CO2 TOTAL (test code = 24 mmol/L 23-31 7857525962) AGAP (test code = 2-16 5619978076) BUN (test code = 8 mg/dL 7-23 6401555671) GLUCOSE (test code = 190 mg/dL 70-110 H 9893730333) CREATININE (test code = 0.54 mg/dL 0.6-1.25 L 3681562969) CALCIUM (test code = 8.4 mg/dL 8.6-10.6 L 6721919797) eGFR Calculation mL/min/1.73m2 (Non-) (test code = 2542060195) eGFR Calculation mL/min/1.73m2 () (test code = 4019588023) DIANE (test code = DIANE) Association of Glomerular Filtration Rate (GFR) and Staging of Kidney Disease*+ + + +| GFR (mL/min/1.73 m2)?| With Kidney Damage?|?Without Kidney Damage+ --------+ --------+ +|?>90?|?S tage one?|? Normal?+ ---------+ ---------+ +|?60-89? |?Stage two?|? Decreased GFR? + --+ --+ ------+|?30-59?|?Stage three?|? Stage three? + --+ --+ ------+|?15-29?|?Stage four? |? Stage four?+ -------+ -------+ +|?<15 (or dialysis)?|?Stage five? |? Stage five?+ -------+ -------+ +*Each stage assumes the associated GFR level has been in effect for at least three months.?Stages 1 to 5, with or without kidney disease, indicate chronic kidney disease.Notes: Determination of stages one and two (with eGFR >59mL/min/1.73 m2) requires estimation of kidney damage for at least three months as defined by structural or functional abnormalities of the kidney, manifested by either:Pathological abnormalities or Markers of kidney damage (including abnormalities in the composition of the blood or urine or abnormalities in imaging tests). Lab Interpretation Abnormal (test code = 72679-4) [facility] 09:54:00 Test Item Value Reference Range Interpretation Comments MAGNESIUM (test code = 5314843215) 1.6 mg/dL 1.7-2.4 L Lab Interpretation (test code = Abnormal 08296-2) [facility] GLUCOSE (AUTOMATED)2019-01-29 03:07:00 Test Item Value Reference Range Interpretation Comments POCT GLU (test code = 1135432969) 233 mg/dL 70-110 H Lab Interpretation (test code = Abnormal 64042-3) [facility] GLUCOSE (AUTOMATED)2019-01-29 01:37:00 Test Item Value Reference Range Interpretation Comments POCT GLU (test code = 182 mg/dL 70-110 H 4654364970) DIANE (test code = DIANE) Notified Provider Lab Interpretation (test Abnormal code = 08802-0) [facility] GLUCOSE (AUTOMATED)2019-01-28 23:15:00 Test Item Value Reference Range Interpretation Comments POCT GLU (test code = 163 mg/dL 70-110 H 8973041200) DIANE (test code = DIANE) Notified Provider Lab Interpretation (test Abnormal code = 81363-3) [facility] WITH [id number] 21:17:00 Test Item Value Reference Range Interpretation Comments WBC (test code = See_Comment [Automated 6690-2) message] The sy stem which generated this result transmitted reference range : 4.20 - 10.70 10*3/?L. The reference range was not used to interpret this result as normal/abnormal . RBC (test code = See_Comment L [Automated 789-8) message] The sy stem which generated this result transmitted reference range : 4.26 - 5.52 10*6/?L. The reference range was not used to interpret this result as normal/abnormal . HGB (test code = 11.5 g/dL 12.2-16.4 L 718-7) HCT (test code = 34.1 % 38.4-49.3 L 4544-3) MCV (test code = 89.7 fL 81.7-95.6 787-2) MCH (test code = 30.3 pg 26.1-32.7 785-6) MCHC (test code = 33.7 g/dL 31.2-35 786-4) RDW-SD (test code = 43.6 fL 38.5-51.6 62137-0) RDW-CV (test code = 13.2 % 12.1-15.4 788-0) PLT (test code = See_Comment [Automated 777-3) message] The sy stem which generated this result transmitted reference range : 150 - 328 10*3/ ?L. The reference r batsheva was not used to interpret this result as normal/abnormal . MPV (test code = 10.3 fL 9.8-13 39830-4) NRBC/100 WBC (test See_Comment [Automat ed code = 8886306564) message] The system which generated this result transmitted reference range : 0.0 - 10.0 /100 WBCs. The refer ence range was not u sed to interpret th is result as normal/abnormal . NRBC x10^3 (test code <0.01 See_Comment [Auto mated = 3137412364) message] The s ystem which generated this result transmitted reference range : 10*3/?L. The reference range was not used to interpret this result as normal/abnormal . GRAN MAT (NEUT) % 48.2 % (test code = 770-8) IMM GRAN % (test code 0.40 % = 3999388315) LYMPH % (test code = 35.9 % 736-9) MONO % (test code = 10.7 % 5905-5) EOS % (test code = 4.4 % 713-8) BASO % (test code = 0.4 % 706-2) GRAN MAT x10^3(ANC) 3.42 10*3/uL 1.99-6.95 (test code = 9138950396) IMM GRAN x10^3 (test 0.03 10*3/uL 0-0.06 code = 8096291682) LYMPH x10^3 (test code 2.55 10*3/uL 1.09-3.23 = 731-0) MONO x10^3 (test code 0.76 10*3/uL 0.36-1.02 = 742-7) EOS x10^3 (test code = 0.31 10*3/uL 0.06-0.53 711-2) BASO x10^3 (test code 0.03 10*3/uL 0.01-0.09 = 704-7) Lab Interpretation Abnormal (test code = 93659-8) [facility] [id number] 18:47:00 Test Item Value Reference Range Interpretation Comments ACTLR (test code = See_Comment H [Automat ed message] 7931688145) The system [employer] generated this result transmitted ref erence range: 89 - 169 Seconds. The reference range was not used to int erpret this result as normal/abnormal . Lab Interpretation (test Abnormal code = 19942-2) [facility] ACT LOW [id number] 17:52:00 Test Item Value Reference Range Interpretation Comments ACTLR (test code = See_Comment H [Automat ed message] 1072900153) The system [employer] generated this result transmitted ref erence range: 89 - 169 Seconds. The reference range was not used to int erpret this result as normal/abnormal . Lab Interpretation (test Abnormal code = 39916-1) [facility] ACT LOW [id number] 17:52:00 Test Item Value Reference Range Interpretation Comments ACTLR (test code = See_Comment H [Automat ed message] 5801094434) The system [employer] generated this result transmitted ref erence range: 89 - 169 Seconds. The reference range was not used to int erpret this result as normal/abnormal . Lab Interpretation (test Abnormal code = 02007-9) [facility] GLUCOSE (AUTOMATED)2019-01-28 13:15:00 Test Item Value Reference Range Interpretation Comments POCT GLU (test code = 262 mg/dL 70-110 H 3066601254) DIANE (test code = DIANE) Notified Provider Lab Interpretation (test Abnormal code = 56790-6) [facility] (NA, K, CL, CO2, GLUCOSE, BUN, CREATININE, CA)2019-01-28 10:26:00 Test Item Value Reference Range Interpretation Comments NA (test code = 137 mmol/L 135-145 0360636742) K (test code = 4.0 mmol/L 3.5-5 Slight 1504614086) hemolysis CL (test code = 106 mmol/L 98-108 0447567008) CO2 TOTAL (test code 24 mmol/L 23-31 = 5847380974) AGAP (test code = 2-16 3632151222) BUN (test code = 9 mg/dL 7-23 Slight 3539607644) hemolysis GLUCOSE (test code = 268 mg/dL 70-110 H 4870278587) CREATININE (test code 0.55 mg/dL 0.6-1.25 L = 1832314594) CALCIUM (test code = 8.7 mg/dL 8.6-10.6 1063001804) eGFR Calculation mL/min/1.73m2 (Non-) (test code = 9958147362) eGFR Calculation mL/min/1.73m2 () (test code = 9292582484) DIANE (test code = DIANE) Association of Glomerular Filtration Rate (GFR) and Staging of Kidney Disease*+ +----- +-- ----+| GFR (mL/min/1.73 m2)?| With Kidney Damage?|?Without Kidney Damage+ +------- +---- --+|?>90?|?Stage one?|? Normal?+ +------ +--- ---+|?60-89?|?Stage two?|? Decreased GFR? + -----+ --------+ +|?3 0-59?|?Stage three?|? Stage three? + -----+ --------+ +|?1 5-29?|?Stage four? |? Stage four?+ +-------- +----- -+|?<15 (or dialysis)?|?Stage five? |? Stage five?+ +-------- +----- -+*Each stage assumes the associated GFR level has been in effect for at least three months.?Stages 1 to 5, with or without kidney disease, indicate chronic kidney disease.Notes: Determination of stages one and two (with eGFR >59mL/min/1.73 m2) requires estimation of kidney damage for at least three months as defined by structural or functional abnormalities of the kidney, manifested by either:Pathological abnormalities or Markers of kidney damage (including abnormalities in the composition of the blood or urine or abnormalities in imaging tests). Lab Interpretation Abnormal (test code = 45529-8) [facility] [id number] 10:26:00 Test Item Value Reference Range Interpretation Comments MAGNESIUM (test code = 6016793408) 1.7 mg/dL 1.7-2.4 Lab Interpretation (test code = Normal 08006-5) [facility] WITH [id number] 10:09:00 Test Item Value Reference Range Interpretation Comments WBC (test code = See_Comment [Automated 1190-2) message] The sy stem which generated this result transmitted reference range : 4.20 - 10.70 10*3/?L. The reference range was not used to interpret this result as normal/abnormal . RBC (test code = See_Comment L [Automated 789-8) message] The sy stem which generated this result transmitted reference range : 4.26 - 5.52 10*6/?L. The reference range was not used to interpret this result as normal/abnormal . HGB (test code = 11.0 g/dL 12.2-16.4 L 718-7) HCT (test code = 33.5 % 38.4-49.3 L 4544-3) MCV (test code = 90.1 fL 81.7-95.6 787-2) MCH (test code = 29.6 pg 26.1-32.7 785-6) MCHC (test code = 32.8 g/dL 31.2-35 786-4) RDW-SD (test code = 43.8 fL 38.5-51.6 04568-4) RDW-CV (test code = 13.2 % 12.1-15.4 788-0) PLT (test code = See_Comment [Automated 777-3) message] The sy stem which generated this result transmitted reference range : 150 - 328 10*3/ ?L. The reference r batsheva was not used to interpret this result as normal/abnormal . MPV (test code = 10.2 fL 9.8-13 16527-3) NRBC/100 WBC (test See_Comment [Automat ed code = 0119771903) message] The system which generated this result transmitted reference range : 0.0 - 10.0 /100 WBCs. The refer ence range was not u sed to interpret th is result as normal/abnormal . NRBC x10^3 (test code <0.01 See_Comment [Auto mated = 5254367359) message] The s ystem which generated this result transmitted reference range : 10*3/?L. The reference range was not used to interpret this result as normal/abnormal . GRAN MAT (NEUT) % 41.1 % (test code = 770-8) IMM GRAN % (test code 0.70 % = 9882050589) LYMPH % (test code = 43.9 % 736-9) MONO % (test code = 8.8 % 5905-5) EOS % (test code = 5.1 % 713-8) BASO % (test code = 0.4 % 706-2) GRAN MAT x10^3(ANC) 2.34 10*3/uL 1.99-6.95 (test code = 9598481693) IMM GRAN x10^3 (test 0.04 10*3/uL 0-0.06 code = 9962616164) LYMPH x10^3 (test code 2.50 10*3/uL 1.09-3.23 = 731-0) MONO x10^3 (test code 0.50 10*3/uL 0.36-1.02 = 742-7) EOS x10^3 (test code = 0.29 10*3/uL 0.06-0.53 711-2) BASO x10^3 (test code <0.03 0.01-0.09 = 704-7) Lab Interpretation Abnormal (test code = 12681-7) [facility] (for use with Heparin Practice Guideline). Note: Draw and Send all Lab STAT.2019-01-28 05:19:00 Test Item Value Reference Range Interpretation Comments APTT Patient (test code See_Comment H [Au tomated message] = 3173-2) The system [employer] generated this result transmitted ref erence range: 26 - 36 Seconds. The reference range was not used to int erpret this result as normal/abnormal . Lab Interpretation (test Abnormal code = 48252-0) [facility] GLUCOSE (AUTOMATED)2019-01-28 01:53:00 Test Item Value Reference Range Interpretation Comments POCT GLU (test code = 1035641473) 236 mg/dL 70-110 H Lab Interpretation (test code = Abnormal 21074-7) [facility] GLUCOSE (AUTOMATED)2019-01-27 23:43:00 Test Item Value Reference Range Interpretation Comments POCT GLU (test code = 2085218357) 215 mg/dL 70-110 H Lab Interpretation (test code = Abnormal 72622-6) [facility] GLUCOSE (AUTOMATED)2019-01-27 20:43:00 Test Item Value Reference Range Interpretation Comments POCT GLU (test code = 8267137594) 193 mg/dL 70-110 H Lab Interpretation (test code = Abnormal 50076-2) [facility] (for use with Heparin Practice Guideline). Note: Draw and Send all Lab STAT.2019-01-27 17:52:00 Test Item Value Reference Range Interpretation Comments APTT Patient (test code See_Comment H [Au tomated message] = 3173-2) The system [employer] generated this result transmitted ref erence range: 26 - 36 Seconds. The reference range was not used to int erpret this result as normal/abnormal . Lab Interpretation (test Abnormal code = 55800-3) [facility] GLUCOSE (AUTOMATED)2019-01-27 17:44:00 Test Item Value Reference Range Interpretation Comments POCT GLU (test code = 261 mg/dL 70-110 H 2625897757) DIANE (test code = DIANE) Notified Provider Lab Interpretation (test Abnormal code = 95850-9) [facility] GLUCOSE (AUTOMATED)2019-01-27 12:58:00 Test Item Value Reference Range Interpretation Comments POCT GLU (test code = 0982457313) 201 mg/dL 70-110 H Lab Interpretation (test code = Abnormal 80735-0) [facility] CenterTR[facility] [id number] 06:19:00 Test Item Value Reference Range Interpretation Comments TROPONIN I (test 0.033 ng/mL See_Comment [Automated code = 6490333597) message] The system which generated this result transmitted reference range : <=0.034. The reference range was not used to interpret this result as normal/abnormal . DIANE (test code = Equal or Less than DIANE) 0.034 ng/ml---Normal?Not e: Cardiac troponin begins to rise 3-4 hours after the onset of ischemia. Repeat in 4-6 hours if the sample was drawn within 3-4 hours of the onset of the symptom and found normal. Between 0.035 and 0.120 ng/mL--- Borderline. Questionable myocardial injury or necrosis?Note: Serial measurement may be necessary to confirm or exclude the diagnosis of myocardial injury or necrosis; Clinical correlation (symptoms, EKGs, imaging studies, and others) required; Repeat in 4-6 hours if clinically indicated.? Equal or Higher than 0.121 ng/mL---Abnormal. Myocardial Injury or Necrosis Likely? Biotin has been reported to cause a negative bias, interpret results relative to patient's use of biotin.? ? Lab Interpretation Normal (test code = 17200-5) [facility] (NA, K, CL, CO2, GLUCOSE, BUN, CREATININE, CA)2019-01-27 06:08:00 Test Item Value Reference Range Interpretation Comments NA (test code = 141 mmol/L 135-145 7367892302) K (test code = 4.1 mmol/L 3.5-5 3028931217) CL (test code = 108 mmol/L 98-108 7600058992) CO2 TOTAL (test code = 26 mmol/L 23-31 8582970713) AGAP (test code = 2-16 7853795848) BUN (test code = 10 mg/dL 7-23 1867399267) GLUCOSE (test code = 127 mg/dL 70-110 H 3101545313) CREATININE (test code = 0.57 mg/dL 0.6-1.25 L 3579586749) CALCIUM (test code = 9.3 mg/dL 8.6-10.6 8164518389) eGFR Calculation mL/min/1.73m2 (Non-) (test code = 4132483925) eGFR Calculation mL/min/1.73m2 () (test code = 8022636149) DIANE (test code = DIANE) Association of Glomerular Filtration Rate (GFR) and Staging of Kidney Disease*+ + + +| GFR (mL/min/1.73 m2)?| With Kidney Damage?|?Without Kidney Damage+ --------+ --------+ +|?>90?|?S tage one?|? Normal?+ ---------+ ---------+ +|?60-89? ?|?Stage two?|? Decreased GFR? + --+ --+ ------+|?30-59?|?Stage three?|? Stage three? + --+ --+ ------+|?15-29?|?Stage four? |? Stage four?+ -------+ -------+ +|?<15 (or dialysis)?|?Stage five? |? Stage five?+ -------+ -------+ +*Each stage assumes the associated GFR level has been in effect for at least three months.?Stages 1 to 5, with or without kidney disease, indicate chronic kidney disease.Notes: Determination of stages one and two (with eGFR >59mL/min/1.73 m2) requires estimation of kidney damage for at least three months as defined by structural or functional abnormalities of the kidney, manifested by either:Pathological abnormalities or Markers of kidney damage (including abnormalities in the composition of the blood or urine or abnormalities in imaging tests). Lab Interpretation Abnormal (test code = 39468-1) [facility] Center[facility] [id number] 06:08:00 Test Item Value Reference Range Interpretation Comments MAGNESIUM (test code = 0901291419) 1.9 mg/dL 1.7-2.4 Lab Interpretation (test code = Normal 41336-8) [facility] (for use with Heparin Practice Guideline). Note: Draw and Send all Lab STAT.2019-01-27 05:37:00 Test Item Value Reference Range Interpretation Comments APTT Patient (test code See_Comment H [Au tomated message] = 3173-2) The system [employer] generated this result transmitted ref erence range: 26 - 36 Seconds. The reference range was not used to int erpret this result as normal/abnormal . Lab Interpretation (test Abnormal code = 70106-6) [facility] WITH [id number] 05:31:00 Test Item Value Reference Range Interpretation Comments WBC (test code = See_Comment [Automated 6690-2) message] The sy stem which generated this result transmitted reference range : 4.20 - 10.70 10*3/?L. The reference range was not used to interpret this result as normal/abnormal . RBC (test code = See_Comment L [Automated 789-8) message] The sy stem which generated this result transmitted reference range : 4.26 - 5.52 10*6/?L. The reference range was not used to interpret this result as normal/abnormal . HGB (test code = 11.8 g/dL 12.2-16.4 L 718-7) HCT (test code = 35.3 % 38.4-49.3 L 4544-3) MCV (test code = 88.0 fL 81.7-95.6 787-2) MCH (test code = 29.4 pg 26.1-32.7 785-6) MCHC (test code = 33.4 g/dL 31.2-35 786-4) RDW-SD (test code = 43.0 fL 38.5-51.6 16974-9) RDW-CV (test code = 13.2 % 12.1-15.4 788-0) PLT (test code = See_Comment [Automated 777-3) message] The sy stem which generated this result transmitted reference range : 150 - 328 10*3/ ?L. The reference r batsheva was not used to interpret this result as normal/abnormal . MPV (test code = 9.9 fL 9.8-13 23974-5) NRBC/100 WBC (test See_Comment [Automat ed code = 9277965922) message] The system which generated this result transmitted reference range : 0.0 - 10.0 /100 WBCs. The refer ence range was not u sed to interpret th is result as normal/abnormal . NRBC x10^3 (test code <0.01 See_Comment [Auto mated = 4810722364) message] The s ystem which generated this result transmitted reference range : 10*3/?L. The reference range was not used to interpret this result as normal/abnormal . GRAN MAT (NEUT) % 55.2 % (test code = 770-8) IMM GRAN % (test code 0.20 % = 7116893592) LYMPH % (test code = 30.5 % 736-9) MONO % (test code = 9.1 % 5905-5) EOS % (test code = 4.5 % 713-8) BASO % (test code = 0.5 % 706-2) GRAN MAT x10^3(ANC) 3.53 10*3/uL 1.99-6.95 (test code = 2040357740) IMM GRAN x10^3 (test <0.03 0-0.06 code = 3804617779) LYMPH x10^3 (test code 1.95 10*3/uL 1.09-3.23 = 731-0) MONO x10^3 (test code 0.58 10*3/uL 0.36-1.02 = 742-7) EOS x10^3 (test code = 0.29 10*3/uL 0.06-0.53 711-2) BASO x10^3 (test code 0.03 10*3/uL 0.01-0.09 = 704-7) Lab Interpretation Abnormal (test code = 20096-3) [facility] GLUCOSE (AUTOMATED)2019-01-27 01:27:00 Test Item Value Reference Range Interpretation Comments POCT GLU (test code = 5653608855) 201 mg/dL 70-110 H Lab Interpretation (test code = Abnormal 38648-1) [facility] (for use with Heparin Practice Guideline). Note: Draw and Send all Lab STAT.2019-01-26 22:52:00 Test Item Value Reference Range Interpretation Comments APTT Patient (test code See_Comment H [Au tomated message] = 3173-2) The system [employer] generated this result transmitted ref erence range: 26 - 36 Seconds. The reference range was not used to int erpret this result as normal/abnormal . Lab Interpretation (test Abnormal code = 78964-7) [facility] CenterXR [facility] [id number] 22:16:19 No acute cardiopulmonary or intra-abdominal abnormality. IChris MD., have reviewed this study and agree with the abovereport.EXAM: XR ABDOMEN ACUTE SERIES HISTORY: right upper quadrant abdominal pain radiating around to back COMPARISON: Chest x-ray 01/24/2019. FINDINGS: Left chest wall pacemaker with leads terminating in the right atrium andright ventricle. Changes of median sternotomy. The lungs are underinflated but clear. Nofocal consolidation, pleural effusion or pneumothorax is identified. Thecardiac silhouette is normal in size. Calcifications at the aortic arch. A left subclavianartery stent is in place. Cholecystectomy clips are seen. The bowel gas pattern is normal. A smallvolume of stool is present in the colon.. No renal stones are seen. No acute bony abnormality. Posterior left spinal fusion at L4-L5 are noted.Moderate to severe degenerative changes of the lumbar spine.[facility], Radiant Results Inft User - 01/26/2019 5:16 PM CDTEXAM: XR ABDOMEN ACUTE SERIESHISTORY: rightupper quadrant abdominal pain radiating around to back COMPARISON: Chest x-ray 01/24/2019.FINDINGS:Left chest wall pacemaker with leads terminating in the right atrium andright ventricle.Changes of median sternotomy. The lungs are underinflated but clear. Nofocal consolidation, pleural effusion or pneumothorax is identified. Thecardiac silhouette is normal in size. Calcifications at the aortic arch. A left subclavian artery stent is in place.Cholecystectomy clips are seen. The bowel gas pattern is normal. A smallvolume of stool is present in the colon.. No renal stones are seen.No acute bony abnormality. Posterior left spinal fusion at L4-L5 are noted.Moderate to severe degenerative changes of the lumbar spine.IMPRESSIONNo acute cardiopulmonary or intra-abdominal abnormality.ISekou MD.,have reviewed this study and agree with the abovereport.[facility]2019-[facility] 21:38:00 Test Item Value Reference Range Interpretation Comments POCT GLU (test code = 217 mg/dL 70-110 H 7043956534) DIANE (test code = DIANE) Notified Provider Lab Interpretation (test Abnormal code = 56140-6) [facility] WITH [id number] 19:27:00 Test Item Value Reference Range Interpretation Comments WBC (test code = See_Comment [Automated 2990-2) message] The sy stem which generated this result transmitted reference range : 4.20 - 10.70 10*3/?L. The reference range was not used to interpret this result as normal/abnormal . RBC (test code = See_Comment L [Automated 149-8) message] The sy stem which generated this result transmitted reference range : 4.26 - 5.52 10*6/?L. The reference range was not used to interpret this result as normal/abnormal . HGB (test code = 11.5 g/dL 12.2-16.4 L 718-7) HCT (test code = 33.6 % 38.4-49.3 L 4544-3) MCV (test code = 88.0 fL 81.7-95.6 787-2) MCH (test code = 30.1 pg 26.1-32.7 785-6) MCHC (test code = 34.2 g/dL 31.2-35 786-4) RDW-SD (test code = 42.5 fL 38.5-51.6 53740-0) RDW-CV (test code = 13.2 % 12.1-15.4 788-0) PLT (test code = See_Comment [Automated 777-3) message] The sy stem which generated this result transmitted reference range : 150 - 328 10*3/ ?L. The reference r batsheva was not used to interpret this result as normal/abnormal . MPV (test code = 10.4 fL 9.8-13 55581-3) NRBC/100 WBC (test See_Comment [Automat ed code = 9275086773) message] The system which generated this result transmitted reference range : 0.0 - 10.0 /100 WBCs. The refer ence range was not u sed to interpret th is result as normal/abnormal . NRBC x10^3 (test code <0.01 See_Comment [Auto mated = 8925330914) message] The s ystem which generated this result transmitted reference range : 10*3/?L. The reference range was not used to interpret this result as normal/abnormal . GRAN MAT (NEUT) % 57.7 % (test code = 770-8) IMM GRAN % (test code 0.20 % = 3061451851) LYMPH % (test code = 29.2 % 736-9) MONO % (test code = 7.8 % 5905-5) EOS % (test code = 4.6 % 713-8) BASO % (test code = 0.5 % 706-2) GRAN MAT x10^3(ANC) 3.62 10*3/uL 1.99-6.95 (test code = 7118793336) IMM GRAN x10^3 (test <0.03 0-0.06 code = 0723150460) LYMPH x10^3 (test code 1.83 10*3/uL 1.09-3.23 = 731-0) MONO x10^3 (test code 0.49 10*3/uL 0.36-1.02 = 742-7) EOS x10^3 (test code = 0.29 10*3/uL 0.06-0.53 711-2) BASO x10^3 (test code 0.03 10*3/uL 0.01-0.09 = 704-7) Lab Interpretation Abnormal (test code = 91437-5) [facility] GLUCOSE (AUTOMATED)2019-01-26 16:32:00 Test Item Value Reference Range Interpretation Comments POCT GLU (test code = 243 mg/dL 70-110 H 0210453061) DIANE (test code = DIANE) Notified Provider Lab Interpretation (test Abnormal code = 52158-8) [facility] GLUCOSE (AUTOMATED)2019-01-26 13:44:00 Test Item Value Reference Range Interpretation Comments POCT GLU (test code = 7259792805) 270 mg/dL 70-110 H Lab Interpretation (test code = Abnormal 97172-5) [facility] Metabolic Panel (NA, K, CL, CO2, GLUCOSE, BUN, CREATININE, CA)2019-01-26 12:15:00 Test Item Value Reference Range Interpretation Comments NA (test code = 138 mmol/L 135-145 7483198603) K (test code = 4.4 mmol/L 3.5-5 8254736106) CL (test code = 105 mmol/L 98-108 3696535575) CO2 TOTAL (test code = 24 mmol/L 23-31 0860154632) AGAP (test code = 2-16 6390445509) BUN (test code = 12 mg/dL 7-23 5440207049) GLUCOSE (test code = 232 mg/dL 70-110 H 7226184237) CREATININE (test code = 0.60 mg/dL 0.6-1.25 1894253277) CALCIUM (test code = 8.9 mg/dL 8.6-10.6 3918996526) eGFR Calculation mL/min/1.73m2 (Non-) (test code = 5605805655) eGFR Calculation mL/min/1.73m2 () (test code = 3563783634) DIANE (test code = DIANE) Association of Glomerular Filtration Rate (GFR) and Staging of Kidney Disease*+ + + +| GFR (mL/min/1.73 m2)?| With Kidney Damage?|?Without Kidney Damage+ --------+ --------+ +|?>90?|?S tage one?|? Normal?+ ---------+ ---------+ +|?60-89? |?Stage two?|? Decreased GFR? + --+ --+ ------+|?30-59?|?Stage three?|? Stage three? + --+ --+ ------+|?15-29?|?Stage four? |? Stage four?+ -------+ -------+ +|?<15 (or dialysis)?|?Stage five? |? Stage five?+ -------+ -------+ +*Each stage assumes the associated GFR level has been in effect for at least three months.?Stages 1 to 5, with or without kidney disease, indicate chronic kidney disease.Notes: Determination of stages one and two (with eGFR >59mL/min/1.73 m2) requires estimation of kidney damage for at least three months as defined by structural or functional abnormalities of the kidney, manifested by either:Pathological abnormalities or Markers of kidney damage (including abnormalities in the composition of the blood or urine or abnormalities in imaging tests). Lab Interpretation Abnormal (test code = 34361-8) [facility] CenterMagnesium [id number] 12:15:00 Test Item Value Reference Range Interpretation Comments MAGNESIUM (test code = 6205335915) 1.9 mg/dL 1.7-2.4 Lab Interpretation (test code = Normal 07079-4) [facility] (for use with Heparin Practice Guideline). Note: Draw and Send all Lab STAT.2019-01-26 12:03:00 Test Item Value Reference Range Interpretation Comments APTT Patient (test code See_Comment H [Au tomated message] = 3173-2) The system [employer] generated this result transmitted ref erence range: 26 - 36 Seconds. The reference range was not used to int erpret this result as normal/abnormal . Lab Interpretation (test Abnormal code = 96717-3) [facility] WITH [id number] 11:49:00 Test Item Value Reference Range Interpretation Comments WBC (test code = See_Comment [Automated 6690-2) message] The sy stem which generated this result transmitted reference range : 4.20 - 10.70 10*3/?L. The reference range was not used to interpret this result as normal/abnormal . RBC (test code = See_Comment L [Automated 589-8) message] The sy stem which generated this result transmitted reference range : 4.26 - 5.52 10*6/?L. The reference range was not used to interpret this result as normal/abnormal . HGB (test code = 11.4 g/dL 12.2-16.4 L 718-7) HCT (test code = 34.0 % 38.4-49.3 L 4544-3) MCV (test code = 88.1 fL 81.7-95.6 787-2) MCH (test code = 29.5 pg 26.1-32.7 785-6) MCHC (test code = 33.5 g/dL 31.2-35 786-4) RDW-SD (test code = 42.8 fL 38.5-51.6 08499-3) RDW-CV (test code = 13.2 % 12.1-15.4 788-0) PLT (test code = See_Comment [Automated 777-3) message] The sy stem which generated this result transmitted reference range : 150 - 328 10*3/ ?L. The reference r batsheva was not used to interpret this result as normal/abnormal . MPV (test code = 10.0 fL 9.8-13 28541-9) NRBC/100 WBC (test See_Comment [Automat ed code = 0292360369) message] The system which generated this result transmitted reference range : 0.0 - 10.0 /100 WBCs. The refer ence range was not u sed to interpret th is result as normal/abnormal . NRBC x10^3 (test code <0.01 See_Comment [Auto mated = 5772859151) message] The s ystem which generated this result transmitted reference range : 10*3/?L. The reference range was not used to interpret this result as normal/abnormal . GRAN MAT (NEUT) % 58.2 % (test code = 770-8) IMM GRAN % (test code 0.30 % = 0221953501) LYMPH % (test code = 28.4 % 736-9) MONO % (test code = 8.0 % 5905-5) EOS % (test code = 4.8 % 713-8) BASO % (test code = 0.3 % 706-2) GRAN MAT x10^3(ANC) 3.39 10*3/uL 1.99-6.95 (test code = 5089690815) IMM GRAN x10^3 (test <0.03 0-0.06 code = 8276872832) LYMPH x10^3 (test code 1.66 10*3/uL 1.09-3.23 = 731-0) MONO x10^3 (test code 0.47 10*3/uL 0.36-1.02 = 742-7) EOS x10^3 (test code = 0.28 10*3/uL 0.06-0.53 711-2) BASO x10^3 (test code <0.03 0.01-0.09 = 704-7) Lab Interpretation Abnormal (test code = 62067-2) [facility]2019-01-26 01:54:00 Test Item Value Reference Range Interpretation Comments POCT GLU (test code = 8719390408) 213 mg/dL 70-110 H Lab Interpretation (test code = Abnormal 91626-0) [facility] (for use with Heparin Practice Guideline). Note: Draw and Send all Lab STAT.2019-01-25 23:30:00 Test Item Value Reference Range Interpretation Comments APTT Patient (test code See_Comment H [Au tomated message] = 3173-2) The system [employer] generated this result transmitted ref erence range: 26 - 36 Seconds. The reference range was not used to int erpret this result as normal/abnormal . Lab Interpretation (test Abnormal code = 35681-0) [facility] GLUCOSE (AUTOMATED)2019-01-25 21:55:00 Test Item Value Reference Range Interpretation Comments POCT GLU (test code = 104 mg/dL 70-110 1690188562) DIANE (test code = DIANE) Notified Provider Lab Interpretation (test Normal code = 41399-8) [facility]SE (AUTOMATED)2019-01-25 17:19:00 Test Item Value Reference Range Interpretation Comments POCT GLU (test code = 150 mg/dL 70-110 H 5935985910) DIANE (test code = DIANE) Notified Provider Lab Interpretation (test Abnormal code = 82760-5) [facility]SE (AUTOMATED)2019-01-25 12:45:00 Test Item Value Reference Range Interpretation Comments POCT GLU (test code = 195 mg/dL 70-110 H 6802340432) DIANE (test code = DIANE) Notified Provider Lab Interpretation (test Abnormal code = 68740-1) [facility] (for use with Heparin Practice Guideline). Note: Draw and Send all Lab STAT.2019-01-25 12:29:00 Test Item Value Reference Range Interpretation Comments APTT Patient (test code >150 See_Comment HH [Au tomated message] = 4203-2) The system [employer] generated this result transmitted ref erence range: 26 - 36 Seconds. The reference range was not used to int erpret this result as normal/abnormal . Lab Interpretation (test Abnormal code = 18442-0) [facility] [id number] 10:41:00 Test Item Value Reference Range Interpretation Comments TROPONIN I (test 0.092 ng/mL See_Comment H [Automated code = 3018190964) message] The system which generated this result transmitted reference range : <=0.034. The reference range was not used to interpret this result as normal/abnormal . DIANE (test code = Equal or Less than DIANE) 0.034 ng/ml---Normal?Not e: Cardiac troponin begins to rise 3-4 hours after the onset of ischemia. Repeat in 4-6 hours if the sample was drawn within 3-4 hours of the onset of the symptom and found normal. Between 0.035 and 0.120 ng/mL--- Borderline. Questionable myocardial injury or necrosis?Note: Serial measurement may be necessary to confirm or exclude the diagnosis of myocardial injury or necrosis; Clinical correlation (symptoms, EKGs, imaging studies, and others) required; Repeat in 4-6 hours if clinically indicated.? Equal or Higher than 0.121 ng/mL---Abnormal. Myocardial Injury or Necrosis Likely? Biotin has been reported to cause a negative bias, interpret results relative to patient's use of biotin.? ? Lab Interpretation Abnormal (test code = 79383-4) [facility] [id number] 06:38:00 Test Item Value Reference Range Interpretation Comments TROPONIN I (test 0.084 ng/mL See_Comment H [Automated code = 8733179192) message] The system which generated this result transmitted reference range : <=0.034. The reference range was not used to interpret this result as normal/abnormal . DIANE (test code = Equal or Less than DIANE) 0.034 ng/ml---Normal?Not e: Cardiac troponin begins to rise 3-4 hours after the onset of ischemia. Repeat in 4-6 hours if the sample was drawn within 3-4 hours of the onset of the symptom and found normal. Between 0.035 and 0.120 ng/mL--- Borderline. Questionable myocardial injury or necrosis?Note: Serial measurement may be necessary to confirm or exclude the diagnosis of myocardial injury or necrosis; Clinical correlation (symptoms, EKGs, imaging studies, and others) required; Repeat in 4-6 hours if clinically indicated.? Equal or Higher than 0.121 ng/mL---Abnormal. Myocardial Injury or Necrosis Likely? Biotin has been reported to cause a negative bias, interpret results relative to patient's use of biotin.? ? Lab Interpretation Abnormal (test code = 77873-1) [facility] Metabolic Panel (NA, K, CL, CO2, GLUCOSE, BUN, CREATININE, CA)2019-01-25 06:14:00 Test Item Value Reference Range Interpretation Comments NA (test code = 138 mmol/L 135-145 7177266005) K (test code = 3.2 mmol/L 3.5-5 L 7471044420) CL (test code = 105 mmol/L 98-108 0887959827) CO2 TOTAL (test code = 24 mmol/L 23-31 0487846778) AGAP (test code = 2-16 0582419303) BUN (test code = 17 mg/dL 7-23 0855027903) GLUCOSE (test code = 197 mg/dL 70-110 H 0737636884) CREATININE (test code = 0.81 mg/dL 0.6-1.25 1884442590) CALCIUM (test code = 8.8 mg/dL 8.6-10.6 8704986788) eGFR Calculation mL/min/1.73m2 (Non-) (test code = 8386811342) eGFR Calculation mL/min/1.73m2 () (test code = 8689641251) DIANE (test code = DIANE) Association of Glomerular Filtration Rate (GFR) and Staging of Kidney Disease*+ + + +| GFR (mL/min/1.73 m2)?| With Kidney Damage?|?Without Kidney Damage+ --------+ --------+ +|?>90?|?S tage one?|? Normal?+ ---------+ ---------+ +|?60-89? |?Stage two?|? Decreased GFR? + --+ --+ ------+|?30-59?|?Stage three?|? Stage three? + --+ --+ ------+|?15-29?|?Stage four? |? Stage four?+ -------+ -------+ +|?<15 (or dialysis)?|?Stage five? |? Stage five?+ -------+ -------+ +*Each stage assumes the associated GFR level has been in effect for at least three months.?Stages 1 to 5, with or without kidney disease, indicate chronic kidney disease.Notes: Determination of stages one and two (with eGFR >59mL/min/1.73 m2) requires estimation of kidney damage for at least three months as defined by structural or functional abnormalities of the kidney, manifested by either:Pathological abnormalities or Markers of kidney damage (including abnormalities in the composition of the blood or urine or abnormalities in imaging tests). Lab Interpretation Abnormal (test code = 06974-2) [facility] [id number] 06:14:00 Test Item Value Reference Range Interpretation Comments MAGNESIUM (test code = 0028127282) 1.6 mg/dL 1.7-2.4 L Lab Interpretation (test code = Abnormal 08434-0) [facility] CenterCB WITH [id number] 05:47:00 Test Item Value Reference Range Interpretation Comments WBC (test code = See_Comment [Automated 2690-2) message] The sy stem which generated this result transmitted reference range : 4.20 - 10.70 10*3/?L. The reference range was not used to interpret this result as normal/abnormal . RBC (test code = See_Comment L [Automated 289-8) message] The sy stem which generated this result transmitted reference range : 4.26 - 5.52 10*6/?L. The reference range was not used to interpret this result as normal/abnormal . HGB (test code = 10.7 g/dL 12.2-16.4 L 718-7) HCT (test code = 31.6 % 38.4-49.3 L 4544-3) MCV (test code = 86.8 fL 81.7-95.6 787-2) MCH (test code = 29.4 pg 26.1-32.7 785-6) MCHC (test code = 33.9 g/dL 31.2-35 786-4) RDW-SD (test code = 41.7 fL 38.5-51.6 74857-9) RDW-CV (test code = 13.2 % 12.1-15.4 788-0) PLT (test code = See_Comment [Automated 777-3) message] The sy stem which generated this result transmitted reference range : 150 - 328 10*3/ ?L. The reference r batsheva was not used to interpret this result as normal/abnormal . MPV (test code = 9.9 fL 9.8-13 69873-3) NRBC/100 WBC (test See_Comment [Automat ed code = 3382127135) message] The system which generated this result transmitted reference range : 0.0 - 10.0 /100 WBCs. The refer ence range was not u sed to interpret th is result as normal/abnormal . NRBC x10^3 (test code <0.01 See_Comment [Auto mated = 2512468860) message] The s ystem which generated this result transmitted reference range : 10*3/?L. The reference range was not used to interpret this result as normal/abnormal . GRAN MAT (NEUT) % 46.4 % (test code = 770-8) IMM GRAN % (test code 0.30 % = 0561741085) LYMPH % (test code = 39.7 % 736-9) MONO % (test code = 7.6 % 5905-5) EOS % (test code = 5.5 % 713-8) BASO % (test code = 0.5 % 706-2) GRAN MAT x10^3(ANC) 2.81 10*3/uL 1.99-6.95 (test code = 3096256467) IMM GRAN x10^3 (test <0.03 0-0.06 code = 8033142621) LYMPH x10^3 (test code 2.40 10*3/uL 1.09-3.23 = 731-0) MONO x10^3 (test code 0.46 10*3/uL 0.36-1.02 = 742-7) EOS x10^3 (test code = 0.33 10*3/uL 0.06-0.53 711-2) BASO x10^3 (test code 0.03 10*3/uL 0.01-0.09 = 704-7) Lab Interpretation Abnormal (test code = 46772-5) [facility] 04:53:00 Test Item Value Reference Range Interpretation Comments MAGNESIUM (test code = 6340839135) 1.6 mg/dL 1.7-2.4 L Lab Interpretation (test code = Abnormal 02596-7) [facility] CenterCT [facility]EN PELVIS W [id number] 03:04:22 1.?No acute intra-abdominal abnormality. 2.?Status post cholecystectomy. 3.?Hepatic steatosis. 4.?The right femoral and left iliac veins are not opacified with contrast,these findings are similar to the 09/25/2018 comparison study. Findings areconcerning for deep vein thrombosis, and correlation with ultrasound isrecommended. I, Radha?MD. Braxton, have reviewed this study and agree with the abovereport.EXAM: CT ABDOMEN AND PELVIS WITH CONTRAST HISTORY: Abdominal distention. COMPARISON: CT studies dated 09/25/2018, 09/18/2018. DOSE: DLP: 428 mGycm TECHNIQUE AND FINDINGS: Contiguous axial imaging from thelevel of the lungbases through the pubic symphysis was performed after the uncomplicatedadministration of 120 cc of intravenous Omnipaque contrast. Coronal andsagittal reconstructions were obtained.?Auto mA and/or iterativereconstruction were used to reduce radiation dose. FINDINGS: LOWER THORAX: Subsegmental atelectasis in the right lower lobe. Nocardiomegaly.Cardiac pacer leads are seen in the rightatrium and ventricle with the right ventricular lead penetrating themyocardium and extends to the epicardial fat similar to prior studies. LIVER: No focal hepatic lesions. Diffusely decreased attenuation consistentwith fatty infiltration. Normal contour. GALLBLADDER AND BILIARY TREE: No biliary ductal dilation. Status postcholecystectomy. Dilation of the common bile duct likely due to reservoirphenomenon and tapering distally. SPLEEN: No splenomegaly. PANCREAS: No ductal dilation or masses. ADRENALGLANDS: No adrenal nodules. KIDNEYS: No hydronephrosis or stones. A right renal cyst measures up to 2.8cm. Additional cortical hypodensities are too small to accuratelycharacterize. PERITONEUM AND RETROPERITONEUM: No free air or fluid. LYMPH NODES: No lymphadenopathy. GI TRACT: Mild concentric rectal wall thickening is noted without adjacentinflammatory changes, and likely due to underdistention. Normal appendix. PELVIS/BLADDER: The urinary bladder is underdistended with thickened wallslikely due tounderdistention. Prostatomegaly. VESSELS: The celiac and superior mesenteric artery share a common origin.The right iliac vein is well opacified with contrast. No contrast is seenwithin the right femoral and left iliac veins. These findings are similarto the 09/25/[address] BONES AND SOFT TISSUES: No suspicious lytic or sclerotic bony lesions.Degenerative changes are seen in the thoracolumbarspine. Changes of L4- 5laminectomies and posterior spinal fusion hardware at left L4-L5. [facility], Radiant Results Inft User - 01/24/2019 10:04 PM CDTEXAM: CT ABDOMEN AND PELVIS WITH CONTRASTHISTORY: Abdominal distention.COMPARISON: CT studies dated 09/25/2018, 09/18/2018.DOSE: DLP: 428 mGycmTECHNIQUE AND FINDINGS: Contiguous axial imaging from the level of the lungbases through the pubic symphysis was performed after the uncomplicatedadministration of 120 cc of intravenous Omnipaque contrast. Coronal andsagittal reconstructions were obtained. Auto mA and/or iterativereconstruction were used to reduce radiation dose.FINDINGS:LOWER THORAX: Subsegmental atelectasis in the right lower lobe. Nocardiomegaly.Cardiac pacer leads are seen in the rightatrium and ventricle with the right ventricular lead penetrating themyocardium and extends to the epicardial fat similar to prior studies. LIVER: No focal hepaticlesions. Diffusely decreased attenuation consistentwith fatty infiltration. Normal contour.GALLBLADDER AND BILIARY TREE: No biliary ductal dilation. Status postcholecystectomy. Dilation of the common bile duct likely due to reservoirphenomenon and tapering distally.SPLEEN: No splenomegaly.PANCREAS: Noductal dilation or masses.ADRENAL GLANDS: No adrenal nodules.KIDNEYS: No hydronephrosis or stones. Aright renal cyst measures up to 2.8cm. Additional cortical hypodensities are too small to accuratelyc haracterize.PERITONEUM AND RETROPERITONEUM: No free air or fluid.LYMPH NODES: No lymphadenopathy.GI TRACT: Mild concentric rectal wall thickening is noted without adjacentinflammatory changes, and likely due to underdistention. Normal appendix.PELVIS/BLADDER: The urinary bladder is underdistended withthickened wallslikely due to underdistention. Prostatomegaly.VESSELS: The celiac and superior mesenteric artery share a common origin.The right iliac vein is well opacified with contrast. No contrast is seenwithin the right femoral and left iliac veins. These findings are similarto the 09/25/[address]BONES AND SOFT TISSUES: No suspicious lytic or sclerotic bony lesions.Degenerative changes are seen in the thoracolumbar spine. Changes of L4-5laminectomies and posterior spinal fusion hardware at left L4-L5.IMPRESSION1. No acute intra-abdominal abnormality.2. Status post cholecystectomy.3. Hepatic steatosis.4. The right femoral and left iliac veins are not opacified with contrast,these findings are similar to the 09/25/2018 comparison study. Findings areconcerning for deep vein thrombosis,and correlation with ultrasound isrecommended.I, Rahda Limon MD., have reviewed this study and agree with the abovereport.[facility]2019-01-24 23:34:00 Test Item Value Reference Range Interpretation Comments POCT GLU (test code = 7945029335) 236 mg/dL 70-110 H Lab Interpretation (test code = Abnormal 82646-3) [facility] CenterTROPONIN [id number] 22:31:00 Test Item Value Reference Range Interpretation Comments TROPONIN I (test 0.096 ng/mL See_Comment H [Automated code = 6964913505) message] The system which generated this result transmitted reference range : <=0.034. The reference range was not used to interpret this result as normal/abnormal . DIANE (test code = Equal or Less than DIANE) 0.034 ng/ml---Normal?Not e: Cardiac troponin begins to rise 3-4 hours after the onset of ischemia. Repeat in 4-6 hours if the sample was drawn within 3-4 hours of the onset of the symptom and found normal. Between 0.035 and 0.120 ng/mL--- Borderline. Questionable myocardial injury or necrosis?Note: Serial measurement may be necessary to confirm or exclude the diagnosis of myocardial injury or necrosis; Clinical correlation (symptoms, EKGs, imaging studies, and others) required; Repeat in 4-6 hours if clinically indicated.? Equal or Higher than 0.121 ng/mL---Abnormal. Myocardial Injury or Necrosis Likely? Biotin has been reported to cause a negative bias, interpret results relative to patient's use of biotin.? ? Lab Interpretation Abnormal (test code = 37289-6) [facility] Metabolic Panel (NA, K, CL, CO2, GLUCOSE, BUN, CREATININE, CA)2019-01-24 22:20:00 Test Item Value Reference Range Interpretation Comments NA (test code = 143 mmol/L 135-145 0004628108) K (test code = 4.1 mmol/L 3.5-5 6981477028) CL (test code = 106 mmol/L 98-108 0170254805) CO2 TOTAL (test code = 22 mmol/L 23-31 L 6953716875) AGAP (test code = 2-16 7676825348) BUN (test code = 17 mg/dL 7-23 0372471647) GLUCOSE (test code = 299 mg/dL 70-110 H 0684790113) CREATININE (test code = 1.03 mg/dL 0.6-1.25 9595195901) CALCIUM (test code = 9.9 mg/dL 8.6-10.6 8558175745) eGFR Calculation mL/min/1.73m2 (Non-) (test code = 1767877180) eGFR Calculation mL/min/1.73m2 () (test code = 7567624634) DIANE (test code = DIANE) Association of Glomerular Filtration Rate (GFR) and Staging of Kidney Disease*+ + + +| GFR (mL/min/1.73 m2)?| With Kidney Damage?|?Without Kidney Damage+ --------+ --------+ +|?>90?|?S thiene one?|? Normal?+ ---------+ ---------+ +|?60-89? |?Stage two?|? Decreased GFR? + --+ --+ ------+|?30-59?|?Stage three?|? Stage three? + --+ --+ ------+|?15-29?|?Stage four? |? Stage four?+ -------+ -------+ +|?<15 (or dialysis)?|?Stage five? |? Stage five?+ -------+ -------+ +*Each stage assumes the associated GFR level has been in effect for at least three months.?Stages 1 to 5, with or without kidney disease, indicate chronic kidney disease.Notes: Determination of stages one and two (with eGFR >59mL/min/1.73 m2) requires estimation of kidney damage for at least three months as defined by structural or functional abnormalities of the kidney, manifested by either:Pathological abnormalities or Markers of kidney damage (including abnormalities in the composition of the blood or urine or abnormalities in imaging tests). Lab Interpretation Abnormal (test code = 25182-6) [facility] (ALB, T.PRO, BILI T, BU/BC, ALT, AST, ALK PHOS)2019-01-24 22:20:00 Test Item Value Reference Range Interpretation Comments TOTAL BILI (test code = 5012245679) 0.8 mg/dL 0.1-1.1 BILI UNCON (test code = 9704204900) 0.6 mg/dL 0.1-1.1 BILI CONJ (test code = 1292095415) 0.0 mg/dL 0-0.3 T PROTEIN (test code = 4593351822) 7.6 g/dL 6.3-8.2 ALBUMIN (test code = 4530123792) 4.5 g/dL 3.5-5 ALK PHOS (test code = 1577528452) 136 U/L 34-122 H ALT(SGPT) (test code = 0895583583) 31 U/L 9-51 AST(SGOT) (test code = 0347272887) 43 U/L 13-40 H Lab Interpretation (test code = Abnormal 74723-2) [facility] CenterLipase [id number] 22:20:00 Test Item Value Reference Range Interpretation Comments LIPASE (test code = 5970139190) 168 U/L 0-220 Lab Interpretation (test code = Normal 88575-3) [facility] CenteraPTT2019-09-05 22:18:00 Test Item Value Reference Range Interpretation Comments APTT Patient (test See_Comment [Automat ed code = 3173-2) message] The system which generated this result transmitted reference range : 23 - 38 Seconds . The reference range was not used to interpr et this result as normal/abnormal . DIANE (test code = DIANE) The [facility] patient population mean normal value for aPTT is 30 seconds. Lab Interpretation Normal (test code = 90956-2) [facility] CenterXR CHEST 1 [id number] 22:17:46 No acute cardiopulmonary process. Stable cardiomegaly. IErma MD., have reviewed this study and agree with the abovereport.PROCEDURE: XR CHEST 1 VW CLINICAL INDICATION: chest pain COMPARISON: None FINDINGS: A left chest wall pacemaker leads terminating in the right atrium and rightventricle. Median sternotomy wires overlie the chest. The lungs are well-expanded and clear without focal consolidation, pleuraleffusion, or pneumothorax. The cardiac silhouette is slightly enlarged. A metallicstent is seen inthe superior mediastinum either located in the proximal left subclavianartery or proximal left common carotid artery. No acute osseous abnormality. Cholecystectomy clips are seen in the right upper quadrant. [facility], Radiant Results Inft User - 01/24/2019 5:17 PM CDTPROCEDURE: XR CHEST 1 VWCLINICAL INDICATION: chest pain COMPARISON: NoneFINDINGS:A left chest wall pacemaker leads terminating in the right atrium and rightventricle. Median sternotomy wires overlie the chest.The lungs arewell- expanded and clear without focal consolidation, pleuraleffusion, or pneumothorax. The cardiac silhouette is slightly enlarged. A metallic stent is seen inthe superior mediastinum either located inthe proximal left subclavianartery or proximal left common carotid artery.No acute osseous abnormality. Cholecystectomy clips are seen in the right upper quadrant.IMPRESSIONNo acute cardiopulmonary process.Stable cardiomegaly.I, Radha Limon MD., have reviewed this study and agree with the abovereport.[facility] CenterProthrombin Time (PT) / [id number] 22:16:00 Test Item Value Reference Range Interpretation Comments PROTIME PATIENT (test See_Comment [Auto mated message] code = 5964-2) The system wh ich generated this result transmitted ref erence range: 12.0 - 1 4.7 Seconds. The re ference range was not u sed to interpret this result as normal/abnor mal. INR (test code = 6301-6) Nor mal INR <1.1; Warfarin Therap eutic range 2.0 to 3. 0 or 2.5 to 3.5, dep ending upon the indica tions. Lab Interpretation (test Normal code = 40170-1) [facility] CenterCBC WITH [id number] 22:07:00 Test Item Value Reference Range Interpretation Comments WBC (test code = See_Comment [Automated 8190-2) message] The sy stem which generated this result transmitted reference range : 4.20 - 10.70 10*3/?L. The reference range was not used to interpret this result as normal/abnormal . RBC (test code = See_Comment L [Automated 619-8) message] The sy stem which generated this result transmitted reference range : 4.26 - 5.52 10*6/?L. The reference range was not used to interpret this result as normal/abnormal . HGB (test code = 11.1 g/dL 12.2-16.4 L 718-7) HCT (test code = 32.6 % 38.4-49.3 L 4544-3) MCV (test code = 87.2 fL 81.7-95.6 787-2) MCH (test code = 29.7 pg 26.1-32.7 785-6) MCHC (test code = 34.0 g/dL 31.2-35 786-4) RDW-SD (test code = 41.2 fL 38.5-51.6 83940-1) RDW-CV (test code = 13.0 % 12.1-15.4 788-0) PLT (test code = See_Comment [Automated 777-3) message] The sy stem which generated this result transmitted reference range : 150 - 328 10*3/ ?L. The reference r batsheva was not used to interpret this result as normal/abnormal . MPV (test code = 10.2 fL 9.8-13 36908-4) NRBC/100 WBC (test See_Comment [Automat ed code = 8354876011) message] The system which generated this result transmitted reference range : 0.0 - 10.0 /100 WBCs. The refer ence range was not u sed to interpret th is result as normal/abnormal . NRBC x10^3 (test code <0.01 See_Comment [Auto mated = 2582431246) message] The s ystem which generated this result transmitted reference range : 10*3/?L. The reference range was not used to interpret this result as normal/abnormal . GRAN MAT (NEUT) % 49.3 % (test code = 770-8) IMM GRAN % (test code 0.30 % = 0410280924) LYMPH % (test code = 37.0 % 736-9) MONO % (test code = 9.5 % 5905-5) EOS % (test code = 3.6 % 713-8) BASO % (test code = 0.3 % 706-2) GRAN MAT x10^3(ANC) 3.15 10*3/uL 1.99-6.95 (test code = 2954864911) IMM GRAN x10^3 (test <0.03 0-0.06 code = 8128715374) LYMPH x10^3 (test code 2.37 10*3/uL 1.09-3.23 = 731-0) MONO x10^3 (test code 0.61 10*3/uL 0.36-1.02 = 742-7) EOS x10^3 (test code = 0.23 10*3/uL 0.06-0.53 711-2) BASO x10^3 (test code <0.03 0.01-0.09 = 704-7) Lab Interpretation Abnormal (test code = 92218-7) [facility] [id number] 18:49:30 No acute cardiopulmonary abnormality. Elissa Franco MD., have reviewed this study and agree with the abovereport.XR CHEST 1 VW HISTORY: chest pain COMPARISON: Chest radiograph 01/17/2019 FINDINGS:Left chest wall pacemaker leads terminating within the right atrium andventricle are unchanged in position. Metallic stent present within the leftsuperior mediastinum is either located in the proximal left subclavianartery or proximal left carotid artery. The lungs are underinflated, but clear. No focal consolidation, pleuraleffusion or pneumothorax. Mild cardiac silhouette enlargement. No tracheal deviation. No acute osseous abnormality. Sternotomy wires overlie the midline. Cholecystectomy clips overlie the right upper quadrant of the abdomen. [facility], Radiant Results Inft User - 01/19/2019 1:51 PM CDTXR CHEST 1 VWHISTORY: chest pain COMPARISON: Chest radiograph 01/17/2019FINDINGS:Left chest wall pacemaker leads terminating within the right atrium andventricle are unchanged in position. Metallic stent present within the leftsuperior mediastinum is either located in the proximal left subclavianartery or proximal left carotid artery.The lungs are underinflated, but clear. No focal consolidation, pleuraleffusion or pneumothorax.Mild cardiac silhouette enlargement. No tracheal deviation.No acute osseous abnormality. Sternotomy wires overlie the midline.Cholecystectomy clips overlie the right upper quadrant of the abdomen. IMPRESSIONNo acute cardiopulmonary abnormality.Pacheco Franco MD., have reviewed this study and agree with the abovereport.[facility] (NA, K, CL, CO2, GLUCOSE, BUN, CREATININE, CA)2019-01-19 11:42:00 Test Item Value Reference Range Interpretation Comments NA (test code = 140 mmol/L 135-145 0856232982) K (test code = 4.1 mmol/L 3.5-5 5220733328) CL (test code = 109 mmol/L 98-108 H 2061557991) CO2 TOTAL (test code = 24 mmol/L 23-31 4457173022) AGAP (test code = 2-16 5409383586) BUN (test code = 11 mg/dL 7-23 8704402925) GLUCOSE (test code = 232 mg/dL 70-110 H 8036024771) CREATININE (test code = 0.53 mg/dL 0.6-1.25 L 0116297486) CALCIUM (test code = 8.7 mg/dL 8.6-10.6 5328014900) eGFR Calculation mL/min/1.73m2 (Non-) (test code = 9994125846) eGFR Calculation mL/min/1.73m2 () (test code = 1075739841) DIANE (test code = DIANE) Association of Glomerular Filtration Rate (GFR) and Staging of Kidney Disease*+ + + +| GFR (mL/min/1.73 m2)?| With Kidney Damage?|?Without Kidney Damage+ --------+ --------+ +|?>90?|?S tage one?|? Normal?+ ---------+ ---------+ +|?60-89? |?Stage two?|? Decreased GFR? + --+ --+ ------+|?30-59?|?Stage three?|? Stage three? + --+ --+ ------+|?15-29?|?Stage four? |? Stage four?+ -------+ -------+ +|?<15 (or dialysis)?|?Stage five? |? Stage five?+ -------+ -------+ +*Each stage assumes the associated GFR level has been in effect for at least three months.?Stages 1 to 5, with or without kidney disease, indicate chronic kidney disease.Notes: Determination of stages one and two (with eGFR >59mL/min/1.73 m2) requires estimation of kidney damage for at least three months as defined by structural or functional abnormalities of the kidney, manifested by either:Pathological abnormalities or Markers of kidney damage (including abnormalities in the composition of the blood or urine or abnormalities in imaging tests). Lab Interpretation Abnormal (test code = 14845-7) [facility]2019-[facility] 11:42:00 Test Item Value Reference Range Interpretation Comments MAGNESIUM (test code = 3293699752) 2.0 mg/dL 1.7-2.4 Lab Interpretation (test code = Normal 63912-5) [facility]SE [facility]2019-01-19 08:50:00 Test Item Value Reference Range Interpretation Comments POCT GLU (test code = 8979942529) 226 mg/dL 70-110 H Lab Interpretation (test code = Abnormal 19082-1) [facility] GLUCOSE (AUTOMATED)2019-01-19 04:18:00 Test Item Value Reference Range Interpretation Comments POCT GLU (test code = 8357748409) 225 mg/dL 70-110 H Lab Interpretation (test code = Abnormal 16665-8) [facility] ACT LOW [id number] 02:35:00 Test Item Value Reference Range Interpretation Comments ACTLR (test code = See_Comment H [Automat ed message] 5610137466) The system [employer] generated this result transmitted ref erence range: 89 - 169 Seconds. The reference range was not used to int erpret this result as normal/abnormal . Lab Interpretation (test Abnormal code = 82381-9) [facility] GLUCOSE (AUTOMATED)2019-01-18 21:01:00 Test Item Value Reference Range Interpretation Comments POCT GLU (test code = 5042758915) 198 mg/dL 70-110 H Lab Interpretation (test code = Abnormal 30758-4) [facility] Center[facility]20463[facility] (ALB,T.PRO,BILI T,BU/BC,ALT,AST,ALK PHOS)2019-01-18 16:11:00 Test Item Value Reference Range Interpretation Comments TOTAL BILI (test code = 0.5 mg/dL 0.1-1.7 3244954073) BILI UNCON (test code = 0.2 mg/dL 0.1-1.2 0106033346) BILI CONJ (test code = 0.0 mg/dL 0-0.3 9328611240) T PROTEIN (test code = 6.3 g/dL 6.3-8.2 7075866179) ALBUMIN (test code = 3.3 g/dL 3.5-5 L 0181204349) ALK PHOS (test code = 96 U/L 34-122 Slight hemolysis 6650155939) ALT(SGPT) (test code = 79 U/L 9-51 H Sligh t hemolysis 8684580005) AST(SGOT) (test code = 119 U/L 13-40 H Sligh t hemolysis 5235106520) Lab Interpretation (test Abnormal code = 13606-8) [facility] GLUCOSE (AUTOMATED)2019-01-18 16:09:00 Test Item Value Reference Range Interpretation Comments POCT GLU (test code = 6649149463) 181 mg/dL 70-110 H Lab Interpretation (test code = Abnormal 19617-5) [facility] GLUCOSE (AUTOMATED)2019-01-18 13:27:00 Test Item Value Reference Range Interpretation Comments POCT GLU (test code = 5442202323) 212 mg/dL 70-110 H Lab Interpretation (test code = Abnormal 05509-4) [facility] CenterTROPONIN [id number] 09:46:00 Test Item Value Reference Range Interpretation Comments TROPONIN I (test 0.011 ng/mL See_Comment [Automated code = 8364886880) message] The system which generated this result transmitted reference range : <=0.034. The reference range was not used to interpret this result as normal/abnormal . DIANE (test code = Equal or Less than DIANE) 0.034 ng/ml---Normal?Not e: Cardiac troponin begins to rise 3-4 hours after the onset of ischemia. Repeat in 4-6 hours if the sample was drawn within 3-4 hours of the onset of the symptom and found normal. Between 0.035 and 0.120 ng/mL--- Borderline. Questionable myocardial injury or necrosis?Note: Serial measurement may be necessary to confirm or exclude the diagnosis of myocardial injury or necrosis; Clinical correlation (symptoms, EKGs, imaging studies, and others) required; Repeat in 4-6 hours if clinically indicated.? Equal or Higher than 0.121 ng/mL---Abnormal. Myocardial Injury or Necrosis Likely? Biotin has been reported to cause a negative bias, interpret results relative to patient's use of biotin.? ? Lab Interpretation Normal (test code = 61344-8) [facility]2019-08-30 09:33:00 Test Item Value Reference Range Interpretation Comments MAGNESIUM (test code = 1.8 mg/dL 1.7-2.4 Sligh t hemolysis 8343694670) Lab Interpretation (test Normal code = 55858-6) [facility] CenterPROTHROMBIN TIME / [id number] 09:22:00 Test Item Value Reference Range Interpretation Comments PROTIME PATIENT (test See_Comment [Auto mated message] code = 5964-2) The system wh ich generated this result transmitted ref erence range: 10.1 - 1 2.6 Seconds. The re ference range was not u sed to interpret this result as normal/abnor mal. INR (test code = 6301-6) Nor mal INR <1.1; Warfarin Therap eutic range 2.0 to 3. 0 or 2.5 to 3.5, dep ending upon the indica tions. Lab Interpretation (test Normal code = 78707-2) [facility] GLUCOSE (AUTOMATED)2019-01-18 08:24:00 Test Item Value Reference Range Interpretation Comments POCT GLU (test code = 8467799138) 244 mg/dL 70-110 H Lab Interpretation (test code = Abnormal 53509-5) [facility] GLUCOSE (AUTOMATED)2019-01-18 05:09:00 Test Item Value Reference Range Interpretation Comments POCT GLU (test code = 7591386899) 232 mg/dL 70-110 H Lab Interpretation (test code = Abnormal 17345-1) [facility] GLUCOSE (AUTOMATED)2019-01-18 00:54:00 Test Item Value Reference Range Interpretation Comments POCT GLU (test code = 6689843849) 258 mg/dL 70-110 H Lab Interpretation (test code = Abnormal 00882-7) [facility] CenterTROPONIN [id number] 21:56:00 Test Item Value Reference Range Interpretation Comments TROPONIN I (test 0.016 ng/mL See_Comment [Automated code = 4075627611) message] The system which generated this result transmitted reference range : <=0.034. The reference range was not used to interpret this result as normal/abnormal . DIANE (test code = Equal or Less than DIANE) 0.034 ng/ml---Normal?Not e: Cardiac troponin begins to rise 3-4 hours after the onset of ischemia. Repeat in 4-6 hours if the sample was drawn within 3-4 hours of the onset of the symptom and found normal. Between 0.035 and 0.120 ng/mL--- Borderline. Questionable myocardial injury or necrosis?Note: Serial measurement may be necessary to confirm or exclude the diagnosis of myocardial injury or necrosis; Clinical correlation (symptoms, EKGs, imaging studies, and others) required; Repeat in 4-6 hours if clinically indicated.? Equal or Higher than 0.121 ng/mL---Abnormal. Myocardial Injury or Necrosis Likely? Biotin has been reported to cause a negative bias, interpret results relative to patient's use of biotin.? ? Lab Interpretation Normal (test code = 68456-0) [facility]POS[facility])2019-01-17 21:08:00 Test Item Value Reference Range Interpretation Comments POCT GLU (test code = 1365656264) 209 mg/dL 70-110 H Lab Interpretation (test code = Abnormal 38617-4) [facility] CenterTROPONIN [id number] 16:50:00 Test Item Value Reference Range Interpretation Comments TROPONIN I (test 0.017 ng/mL See_Comment [Automated code = 3124122064) message] The system which generated this result transmitted reference range : <=0.034. The reference range was not used to interpret this result as normal/abnormal . DIANE (test code = Equal or Less than DIANE) 0.034 ng/ml---Normal?Not e: Cardiac troponin begins to rise 3-4 hours after the onset of ischemia. Repeat in 4-6 hours if the sample was drawn within 3-4 hours of the onset of the symptom and found normal. Between 0.035 and 0.120 ng/mL--- Borderline. Questionable myocardial injury or necrosis?Note: Serial measurement may be necessary to confirm or exclude the diagnosis of myocardial injury or necrosis; Clinical correlation (symptoms, EKGs, imaging studies, and others) required; Repeat in 4-6 hours if clinically indicated.? Equal or Higher than 0.121 ng/mL---Abnormal. Myocardial Injury or Necrosis Likely? Biotin has been reported to cause a negative bias, interpret results relative to patient's use of biotin.? ? Lab Interpretation Normal (test code = 43894-1) [facility] GLUCOSE (AUTOMATED)2019-01-17 16:44:00 Test Item Value Reference Range Interpretation Comments POCT GLU (test code = 1536763252) 204 mg/dL 70-110 H Lab Interpretation (test code = Abnormal 69444-5) [facility] GLUCOSE (AUTOMATED)2019-01-17 12:49:00 Test Item Value Reference Range Interpretation Comments POCT GLU (test code = 7513868763) 259 mg/dL 70-110 H Lab Interpretation (test code = Abnormal 95611-0) [facility] GLUCOSE (AUTOMATED)2019-01-17 10:37:00 Test Item Value Reference Range Interpretation Comments POCT GLU (test code = 2211501127) 312 mg/dL 70-110 H Lab Interpretation (test code = Abnormal 17631-6) [facility] CenterTROP[facility] [id number] 10:31:00 Test Item Value Reference Range Interpretation Comments TROPONIN I (test 0.024 ng/mL See_Comment [Automated code = 1459618021) message] The system which generated this result transmitted reference range : <=0.034. The reference range was not used to interpret this result as normal/abnormal . DIANE (test code = Equal or Less than DIANE) 0.034 ng/ml---Normal?Not e: Cardiac troponin begins to rise 3-4 hours after the onset of ischemia. Repeat in 4-6 hours if the sample was drawn within 3-4 hours of the onset of the symptom and found normal. Between 0.035 and 0.120 ng/mL--- Borderline. Questionable myocardial injury or necrosis?Note: Serial measurement may be necessary to confirm or exclude the diagnosis of myocardial injury or necrosis; Clinical correlation (symptoms, EKGs, imaging studies, and others) required; Repeat in 4-6 hours if clinically indicated.? Equal or Higher than 0.121 ng/mL---Abnormal. Myocardial Injury or Necrosis Likely? Biotin has been reported to cause a negative bias, interpret results relative to patient's use of biotin.? ? Lab Interpretation Normal (test code = 47221-3) [facility] CenterGLYCOSYLATED HEMOGLOBIN (A1C)2019-01-17 09:54:00 Test Item Value Reference Interpretation Comments Range HGB A1C (test code = See_Comment H [Autom ated 4548-4) message] The system which generated this result transmitted reference range : 4.0 - 6.0 % NGSP. The reference range was not used to interpret this result as normal/abnormal . DIANE (test code = %A1C (NGSP) DIANE) Interpretation (ADA)4.8-5.6? Normal or (Non-Diabetic Range)5.7-6.4? Increased Risk (Pre-Diabetic)>6.5?D iabetes Indicated Lab Interpretation Abnormal (test code = 37106-2) [facility] CenterTroponin [id number] 05:57:00 Test Item Value Reference Range Interpretation Comments TROPONIN I (test 0.024 ng/mL See_Comment [Automated code = 9966857232) message] The system which generated this result transmitted reference range : <=0.034. The reference range was not used to interpret this result as normal/abnormal . DIANE (test code = Equal or Less than DIANE) 0.034 ng/ml---Normal?Not e: Cardiac troponin begins to rise 3-4 hours after the onset of ischemia. Repeat in 4-6 hours if the sample was drawn within 3-4 hours of the onset of the symptom and found normal. Between 0.035 and 0.120 ng/mL--- Borderline. Questionable myocardial injury or necrosis?Note: Serial measurement may be necessary to confirm or exclude the diagnosis of myocardial injury or necrosis; Clinical correlation (symptoms, EKGs, imaging studies, and others) required; Repeat in 4-6 hours if clinically indicated.? Equal or Higher than 0.121 ng/mL---Abnormal. Myocardial Injury or Necrosis Likely? Biotin has been reported to cause a negative bias, interpret results relative to patient's use of biotin.? ? Lab Interpretation Normal (test code = 99462-7) [facility] CenterBasi Metabolic Panel (NA, K, CL, CO2, GLUCOSE, BUN, CREATININE, CA)2019-01-17 05:47:00 Test Item Value Reference Range Interpretation Comments NA (test code = 138 mmol/L 135-145 7693074085) K (test code = 3.6 mmol/L 3.5-5 0514041451) CL (test code = 102 mmol/L 98-108 1368963898) CO2 TOTAL (test code = 21 mmol/L 23-31 L 7138712229) AGAP (test code = 2-16 2530405083) BUN (test code = 24 mg/dL 7-23 H 8439297164) GLUCOSE (test code = 421 mg/dL 70-110 H 4099168057) CREATININE (test code = 0.79 mg/dL 0.6-1.25 6879951162) CALCIUM (test code = 10.2 mg/dL 8.6-10.6 0143896064) eGFR Calculation mL/min/1.73m2 (Non-) (test code = 7697051602) eGFR Calculation mL/min/1.73m2 () (test code = 8842047826) DIANE (test code = DIANE) Association of Glomerular Filtration Rate (GFR) and Staging of Kidney Disease*+ + + +| GFR (mL/min/1.73 m2)?| With Kidney Damage?|?Without Kidney Damage+ --------+ --------+ +|?>90?|?S tage one?|? Normal?+ ---------+ ---------+ +|?60-89? |?Stage two?|? Decreased GFR? + --+ --+ ------+|?30-59?|?Stage three?|? Stage three? + --+ --+ ------+|?15-29?|?Stage four? |? Stage four?+ -------+ -------+ +|?<15 (or dialysis)?|?Stage five? |? Stage five?+ -------+ -------+ +*Each stage assumes the associated GFR level has been in effect for at least three months.?Stages 1 to 5, with or without kidney disease, indicate chronic kidney disease.Notes: Determination of stages one and two (with eGFR >59mL/min/1.73 m2) requires estimation of kidney damage for at least three months as defined by structural or functional abnormalities of the kidney, manifested by either:Pathological abnormalities or Markers of kidney damage (including abnormalities in the composition of the blood or urine or abnormalities in imaging tests). Lab Interpretation Abnormal (test code = 41008-7) [facility] 1 [id number] 05:28:06 No radiographic cardiopulmonary disease. RL: 5252 ORDERING PHYSICIAN:?SHEKHAR ALLEN CLINICAL HISTORY: Acute chest pain TECHNIQUE: Frontal view of chest COMPARISON: 11/01/2018 FINDINGS: The cardiac silhouette is moderately enlarged.?Left chest wall pacemakerwell-positioned, with leads in the right a trium and right ventricle. Osseous structures are normal. [facility], Radiant Results Inft User - 01/17/2019 12:30 AM CDTORDERING PHYSICIAN: SHEKHAR LONDONLINICAL HISTORY: Acute chest painTECHNIQUE: Frontal view of chestCOMPARISON: 11/01/2018FINDINGS:The cardiac silhouette is moderately enlarged. Left chest wall pacemakerwell-positioned, with leads in the right atrium and right ventricle. Osseous structures are normal. IMPRESSIONNo radiographic cardiopulmonary disease.RL: [address] WITH [id number] 05:26:00 Test Item Value Reference Range Interpretation Comments WBC (test code = See_Comment [Automated 0090-2) message] The sy stem which generated this result transmitted reference range : 4.20 - 10.70 10*3/?L. The reference range was not used to interpret this result as normal/abnormal . RBC (test code = See_Comment [Automated 789-8) message] The sy stem which generated this result transmitted reference range : 4.26 - 5.52 10*6/?L. The reference range was not used to interpret this result as normal/abnormal . HGB (test code = 13.5 g/dL 12.2-16.4 718-7) HCT (test code = 37.1 % 38.4-49.3 L 4544-3) MCV (test code = 84.9 fL 81.7-95.6 787-2) MCH (test code = 30.9 pg 26.1-32.7 785-6) MCHC (test code = 36.4 g/dL 31.2-35 H 786-4) RDW-SD (test code = 39.6 fL 38.5-51.6 91392-3) RDW-CV (test code = 12.9 % 12.1-15.4 788-0) PLT (test code = See_Comment [Automated 777-3) message] The sy stem which generated this result transmitted reference range : 150 - 328 10*3/ ?L. The reference r batsheva was not used to interpret this result as normal/abnormal . MPV (test code = 10.3 fL 9.8-13 41156-1) NRBC/100 WBC (test See_Comment [Automat ed code = 6553568533) message] The system which generated this result transmitted reference range : 0.0 - 10.0 /100 WBCs. The refer ence range was not u sed to interpret th is result as normal/abnormal . NRBC x10^3 (test code <0.01 See_Comment [Auto mated = 5534153443) message] The s ystem which generated this result transmitted reference range : 10*3/?L. The reference range was not used to interpret this result as normal/abnormal . GRAN MAT (NEUT) % 51.5 % (test code = 770-8) IMM GRAN % (test code 0.50 % = 7156176109) LYMPH % (test code = 34.1 % 736-9) MONO % (test code = 10.4 % 5905-5) EOS % (test code = 3.1 % 713-8) BASO % (test code = 0.4 % 706-2) GRAN MAT x10^3(ANC) 3.88 10*3/uL 1.99-6.95 (test code = 1042652777) IMM GRAN x10^3 (test 0.04 10*3/uL 0-0.06 code = 4351111840) LYMPH x10^3 (test code 2.57 10*3/uL 1.09-3.23 = 731-0) MONO x10^3 (test code 0.78 10*3/uL 0.36-1.02 = 742-7) EOS x10^3 (test code = 0.23 10*3/uL 0.06-0.53 711-2) BASO x10^3 (test code 0.03 10*3/uL 0.01-0.09 = 704-7) Lab Interpretation Abnormal (test code = 06245-4) [facility] CenterCOMPREHENSIVE METABOLIC [id number] 18:02:00 Test Item Value Reference Range Interpretation Comments SODIUM (test code = NA) 138 mmol/L 134-147 N POTASSIUM (test code = 4.1 mmol/L 3.4-5.0 N K) CHLORIDE (test code = 104 mmol/L 100-108 N CL) CARBON DIOXIDE (test 23 mmol/L 21-32 N code = CO2) ANION GAP (test code = 11.0 GAP calc 4.0-15.0 N GAP) GLUCOSE (test code = 347 MG/DL 70-110 H GLU) BLOOD UREA NITROGEN 14 MG/DL 7-18 N (test code = BUN) GLOMERULAR FILTRATION >=60 max estimate >60 RATE (test code = GFR) estGFR CREATININE (test code = 1.2 MG/DL 0.8-1.3 N CREAT) TOTAL PROTEIN (test code 7.6 G/DL 6.4-8.2 N = PROT) ALBUMIN (test code = 3.8 G/DL 3.4-5.0 N ALB) GLOBULIN (test code = 3.8 GM/dL GLOB) ALBUMIN/GLOBULIN RATIO 1.0 RATIO 1.2-2.2 L (test code = A/G) CALCIUM (test code = CA) 9.8 MG/DL 8.5-10.1 N BILIRUBIN TOTAL (test 0.60 MG/DL 0.2-1.2 N code = BILT) SGOT/AST (test code = 26 Unit/L 15-37 N AST) SGPT/ALT (test code = 53 Unit/L 12-78 N ALT) ALKALINE PHOSPHATASE 149 Unit/L 50-136 H TOTAL (test code = ALKP) [id number] 18:02:00 Test Item Value Reference Range Interpretation Comments AMYLASE (test code = SERGIO) 82 Unit/L 25-115 N [id number] 18:02:00 Test Item Value Reference Range Interpretation Comments LIPASE (test code = LIP) 185 Unit/L 114-286 N COMPREHENSIVE METABOLIC [id number] 17:56:00 Test Item Value Reference Range Interpretation [...] TOTAL Unit/L 50-136 (test code = ALKP) [id number] 17:56:00 Test Item Value Reference Range Interpretation Comments AMYLASE (test code = SERGIO) Unit/L 25-115 [id number] 17:56:00 Test Item Value Reference Range Interpretation Comments LIPASE (test code = LIP) 185 Unit/L 114-286 N CBC W/AUTO [id number] 17:46:00 Test Item Value Reference Range Interpretation [...] CRITERIA MDIFF) - CT ABD PELVIS W/O [id number] 17:46:00 Name: ERNIE VANCE [facility] : 1960 Age/S: 58 / M [address] [place] Unit #: [id number] Loc: [place] [address] Phys: Nila Chester MD Acct: [id number] Dis Date: Status: REG ER PHONE #: [phone] Exam Date: 01/03/2019 9151 FAX #: Reason: llq EXAMS: CPT: [id number] CT ABD PELVIS W/O CONT 03759 Location ofdictation: B2 CT abdomen and pelvis [...] cholecystectomy. PAGE 1 Signed Report (CONTINUED) Name: ERNIE VANCE [place] : 1960 Age/S: 58 / M [address] [place] Unit #: [id number] Loc: [place] [address] Phys: Rochelle Chester MD Acct: [id number] Dis Date: Status: REG ER PHONE #: [phone] Exam Date: 01/03/2019 1739 FAX #: Reason: llq EXAMS: CPT: [id number] CT ABD PELVIS W/O CONT 61072 <Continued> at 1746 Reported and signed by: Renuka Willett M.D. CC: Nila Chester MD Technologist:Tavon Jurado,RT(R)(CT)(MRI) CTDI: DLP: Trnscb Date/Time: 01/03/2019 (1746) [email or web address] Orig Print D/T: S: 01/03/2019 (1749) PAGE 2 Signed ReportBedside [id number] 11:47:00 Test Item Value Reference Range Interpretation Comments Bedside Glucose (test code = 32543-7) 155 70-120 H Meter ID: [id number] 2017-10-27 08:31:00 Test Item Value Reference Range Interpretation Comments Sodium Level (test code = 2951-2) 139 136-145 [facility] HospitalPotassium [id number] 08:31:00 Test Item Value Reference Range Interpretation Comments Potassium Level (test code = 2823-3) 4.0 3.5-5.1 [facility] HospitalChloride [id number] 08:31:00 Test Item Value Reference Range Interpretation Comments Chloride Level (test code = 2075-0) 106 98-107 [facility] HospitalCarbon Dioxide [id number] 08:31:00 Test Item Value Reference Range Interpretation Comments Carbon Dioxide Level (test code = 2027-9) [facility] HospitalAnion [id number] 08:31:00 Test Item Value Reference Range Interpretation Comments Anion Gap (test code = 37446-2) 12.0 8-16 [facility] HospitalBlood Urea [id number] 08:31:00 Test Item Value Reference Range Interpretation Comments Blood Urea Nitrogen (test code = 12-14 3094-0) [facility] HospitalCreatinine2018-06-08 08:31:00 Test Item Value Reference Range Interpretation Comments Creatinine (test code = 2160-0) 0.72 0.72-1.25 [facility] HospitalBUN/Creatinine [id number] 08:31:00 Test Item Value Reference Range Interpretation Comments BUN/Creatinine Ratio (test code = 11-13 3097-3) [facility] [facility] HospitalEstimat Glomerular Filtration Rate 2017-10-27 08:31:00 Test Item Value Reference Range Interpretation Comments Estimat Glomerular Filtration Rate 60- >60 (test code = 30941-3) Ranges were taken from the National Kidney Disease Education Program and the National Kidney Foundation literature.Reference ranges:60 or greater: Zyuupw46- 59 (for 3 consecutive months): Chronic kidneydisease 15 or less: Kidney failure [facility] HospitalGlucose Zejeb3316-11-47 08:31:00 Test Item Value Reference Range Interpretation Comments Glucose Level (test code = IXJ3180) 195 74-118 H [facility] HospitalCalcium Suqhx2166-63-66 08:31:00 Test Item Value Reference Range Interpretation Comments Calcium Level (test code = 06528-2) 9.0 8.4-10.2 [facility] HospitalIM GRANULOCYTES %2017-10-27 08:12:00 Test Item Value Reference Range Interpretation Comments IM GRANULOCYTES % (test code = IM 0.5 0.0-1.0 GRANULOCYTES %) [facility] HospitalNeutrophils # (Auto)2017-10-27 08:12:00 Test Item Value Reference Range Interpretation Comments Neutrophils # (Auto) (test code = 3.1 2.1-6.9 751-8) [facility] HospitalLymphocytes # (Auto)2017-10-27 08:12:00 Test Item Value Reference Range Interpretation Comments Lymphocytes # (Auto) (test code = 2.0 1.0-3.2 87245-8) [facility] HospitalMonocytes # (Auto)2017-10-27 08:12:00 Test Item Value Reference Range Interpretation Comments Monocytes # (Auto) (test code = 742-7) 0.6 0.2-0.8 [facility] HospitalEosinophils # (Auto)2017-10-27 08:12:00 Test Item Value Reference Range Interpretation Comments Eosinophils # (Auto) (test code = 0.3 0.0-0.4 711-2) [facility] HospitalBasophils # (Auto)2017-10-27 08:12:00 Test Item Value Reference Range Interpretation Comments Basophils # (Auto) (test code = 704-7) 0.0 0.0-0.1 [facility] HospitalAbsolute Immature Granulocyte (auto 2017-10-27 08:12:00 Test Item Value Reference Range Interpretation Comments Absolute Immature Granulocyte (auto 0.03 0-0.1 (test code = Absolute Immature Granulocyte (auto) [facility] HospitalWhite Blood Xeaxy7925-63-62 08:12:00 Test Item Value Reference Range Interpretation Comments White Blood Count (test code = 6690-2) 6.06 4.8-10.8 [facility] HospitalRed Blood Aeuwv2280-97-72 08:12:00 Test Item Value Reference Range Interpretation Comments Red Blood Count (test code = 789-8) 4.22 4.3-5.7 L [facility] HospitalHemoglobin2018-06-08 08:12:00 Test Item Value Reference Range Interpretation Comments Hemoglobin (test code = 14154-6) 12.5 14.0-18.0 L [facility] HospitalHematocrit2018-06-08 08:12:00 Test Item Value Reference Range Interpretation Comments Hematocrit (test code = 4544-3) 36.2 38.2-49.6 L [facility] HospitalMean Corpuscular Plwguf0044-76-06 08:12:00 Test Item Value Reference Range Interpretation Comments Mean Corpuscular Volume (test code = 85.8 81-99 787-2) [facility] HospitalMean Corpuscular Nugtqpiblp8450-49-46 08:12:00 Test Item Value Reference Range Interpretation Comments Mean Corpuscular Hemoglobin (test code 29.6 28-32 = 785-6) [facility] Corpuscular Hemoglobin Concent 2017-10-27 08:12:00 Test Item Value Reference Range Interpretation Comments Mean Corpuscular Hemoglobin Concent 34.5 31-35 (test code = 786-4) [facility] HospitalRed Cell Distribution Hltkr4953-87-53 08:12:00 Test Item Value Reference Range Interpretation Comments Red Cell Distribution Width (test code 14.2 11.7-14.4 = 86942-5) [facility] HospitalPlatelet Vxwng1753-12-48 08:12:00 Test Item Value Reference Range Interpretation Comments Platelet Count (test code = 777-3) 263 140-360 [facility] HospitalNeutrophils (%) (Auto)2017-10-27 08:12:00 Test Item Value Reference Range Interpretation Comments Neutrophils (%) (Auto) (test code = 51.2 38.7-80.0 41397-8) [facility] HospitalLymphocytes (%) (Auto)2017-10-27 08:12:00 Test Item Value Reference Range Interpretation Comments Lymphocytes (%) (Auto) (test code = 33.7 18.0-39.1 736-9) [facility] HospitalMonocytes (%) (Auto)2017-10-27 08:12:00 Test Item Value Reference Range Interpretation Comments Monocytes (%) (Auto) (test code = 9.1 4.4-11.3 5905-5) [facility] HospitalEosinophils (%) (Auto)2017-10-27 08:12:00 Test Item Value Reference Range Interpretation Comments Eosinophils (%) (Auto) (test code = 4.8 0.0-6.0 713-8) [facility] HospitalBasophils (%) (Auto)2017-10-27 08:12:00 Test Item Value Reference Range Interpretation Comments Basophils (%) (Auto) (test code = 0.7 0.0-1.0 706-2) [facility] HospitalCreatine Kinase XN9922-69-60 15:14:00 Test Item Value Reference Range Interpretation Comments Creatine Kinase MB (test code = 3.90 0-5.0 83818-2) [facility] HospitalTroponin W2830-67-52 15:14:00 Test Item Value Reference Range Interpretation Comments Troponin I (test code = YMN7252) 0.054 0-0.300 [facility] HospitalCreatine Xmisoa9260-88-51 15:07:00 Test Item Value Reference Range Interpretation Comments Creatine Kinase (test code = 2157-6) 297 30-200 H [facility] HospitalHemoglobin A1c Bsumlzc1261-50-36 08:04:00 Test Item Value Reference Range Interpretation Comments Hemoglobin A1c Percent (test code = 12.6 4.0-7.0 H Hemoglobin A1c Percent) [facility] HospitalTriglycerides Hwpqn4391-41-88 06:57:00 Test Item Value Reference Range Interpretation Comments Triglycerides Level (test code = 200 0-149 H 2571-8) [facility] HospitalCholesterol Lamhl4140-59-26 06:57:00 Test Item Value Reference Range Interpretation Comments Cholesterol Level (test code = 2093-3) 239 0-199 H Less than 200 mg/dL Low Vlsh576 - 239 mg/dL Borderline Jmsk601 mg/dl and greaterHigh RiskNorth Central Surgical Center HospitalLDL Cholesterol 2017-10-24 06:57:00 Test Item Value Reference Range Interpretation Comments LDL Cholesterol (test code = 2089-1) 164 60-130 H [facility] HospitalHDL Omwuuvcucfn1994-71-30 06:57:00 Test Item Value Reference Range Interpretation Comments HDL Cholesterol (test code = 2085-9) 35 40-60 L [facility] HospitalCholesterol/HDL Ozfia4547-28-17 06:57:00 Test Item Value Reference Range Interpretation Comments Cholesterol/HDL Ratio (test code = 6.8 3.9-4.7 H 9830-1) [facility] HospitalUrine Opiates Gkgduz8704-34-85 16:18:00 Test Item Value Reference Range Interpretation Comments Urine Opiates Screen (test code = NEGATIVE NEGATIVE 58952-3) [facility] HospitalUrine Barbiturates Csgupq5061-61-81 16:18:00 Test Item Value Reference Range Interpretation Comments Urine Barbiturates Screen (test code NEGATIVE NEGATIVE = 554177797) [facility] Phencyclidine Vaiywe6870-74-85 16:18:00 Test Item Value Reference Range Interpretation Comments Urine Phencyclidine Screen (test NEGATIVE NEGATIVE code = 26484-8) [facility] HospitalUrine Amphetamines Riurww0375-43-23 16:18:00 Test Item Value Reference Range Interpretation Comments Urine Amphetamines Screen (test code NEGATIVE NEGATIVE = 09717-0) [facility] HospitalUrine Methamphetamines Llbulu6312-88-95 16:18:00 Test Item Value Reference Range Interpretation Comments Urine Methamphetamines Screen (test NEGATIVE NEGATIVE code = Urine Methamphetamines Screen) [facility] HospitalUrine Benzodiazepines Xqrhtw5139-07-45 16:18:00 Test Item Value Reference Range Interpretation Comments Urine Benzodiazepines Screen (test NEGATIVE NEGATIVE code = 34757-8) [facility] HospitalUrine Cocaine Cmmtpm9021-23-88 16:18:00 Test Item Value Reference Range Interpretation Comments Urine Cocaine Screen (test code = NEGATIVE NEGATIVE 3398-5) [facility] HospitalUrine Cannabinoids Kxeqnr4283-03-62 16:18:00 Test Item Value Reference Range Interpretation Comments Urine Cannabinoids Screen (test code NEGATIVE NEGATIVE = 05570-6) THESE RESULTS ARE FOR MEDICAL TREATMENT ONLYTHIS REPORT CONTAINS UNCONFIRMED SCREENING RESULTS*POSITIVE RESULTS WILL BE CONFIRMED BY REFERENCE LAB UPON REQUEST CUT-OFFDRUG CLASS CONCENTRATION ng/mLAmphetamines 1000Met hamphetamines 1000Cocaine 300Opiate 300Phencyclidine 25Cannabinoid 50Barbiturates 300Benzodiazepine 300Methadone 300[facility]one Oyotku2047-92-18 16:18:00 Test Item Value Reference Range Interpretation Comments Urine Methadone Screen (test code = NEGATIVE NEGATIVE 63995-1) THESE RESULTS ARE FOR MEDICAL TREATMENT ONLYTHIS REPORT CONTAINS UNCONFIRMED SCREENING RESULTS*POSITIVE RESULTS WILL BE CONFIRMED BY REFERENCE LAB UPON REQUEST CUT-OFFDRUG CLASS CONCENTRATION ng/mLAmphetamines 1000Met hamphetamines 1000Cocaine Metabolite 300Opiate 300Phencyclidine 25Cannabinoid 50Barbiturates 300Benzodiazepine 300Methadone 300[facility] HospitalProthrombin Pkld7281-69-91 14:13:00 Test Item Value Reference Range Interpretation Comments Prothrombin Time (test code = 5902-2) 13.6 11.9-14.5 [facility] HospitalProthromb Time International Ratio 2017-10-23 14:13:00 Test Item Value Reference Range Interpretation Comments Prothromb Time International Ratio 1.13 (test code = 6301-6) Oral Anticoagulant Therapy INR Values:1. Low Intensity Therapy 1.5 - 2.02. Moderate IntensityTherapy 2.0 - 3.03. High Intensity Therapy(1) 2.5 - 3.54. High Intensity Therapy(2) 3.0 - 4.05. Panic Value INR > 5.0[facility] HospitalActivated Partial Thromboplast Time 2017-10-23 14:13:00 Test Item Value Reference Range Interpretation Comments Activated Partial Thromboplast Time 27.6 23.8-35.5 (test code = 53351-5) [facility] HospitalTotal Arfekplzy0832-61-12 14:10:00 Test Item Value Reference Range Interpretation Comments Total Bilirubin (test code = 1975-2) 0.6 0.2-1.2 [facility] HospitalAspartate Amino Transf (AST/SGOT) 2017-10-23 14:10:00 Test Item Value Reference Range Interpretation Comments Aspartate Amino Transf (AST/SGOT) (test 36 5-34 H code = Aspartate Amino Transf (AST/SGOT)) [facility] HospitalAlanine Aminotransferase (ALT/SGPT) 2017-10-23 14:10:00 Test Item Value Reference Range Interpretation Comments Alanine Aminotransferase (ALT/SGPT) 34 0-55 (test code = 1742-6) [facility] HospitalTotal Kpsjzdz4590-92-81 14:10:00 Test Item Value Reference Range Interpretation Comments Total Protein (test code = 2885-2) 7.3 6.5-8.1 [facility] HospitalAlbumin2018-06-04 14:10:00 Test Item Value Reference Range Interpretation Comments Albumin (test code = 1751-7) 4.0 3.5-5.0 [facility] HospitalGlobulin2018-06-04 14:10:00 Test Item Value Reference Range Interpretation Comments Globulin (test code = 48520-4) 3.3 2.3-3.5 [facility] HospitalAlbumin/Globulin Zgezf0205-03-00 14:10:00 Test Item Value Reference Range Interpretation Comments Albumin/Globulin Ratio (test code = 1.2 0.8-2.0 1759-0) [facility] HospitalAlkaline Aszitnfpfrk6888-05-85 14:10:00 Test Item Value Reference Range Interpretation Comments Alkaline Phosphatase (test code = 109 40-150 6768-6) [facility] HospitalB-Type Natriuretic Mqrvuca3760-75-23 14:10:00 Test Item Value Reference Range Interpretation Comments B-Type Natriuretic Peptide (test code = 92.8 0-100 28625-4) [facility] HospitalAmylase Npest8610-72-73 14:10:00 Test Item Value Reference Range Interpretation Comments Amylase Level (test code = 1798-8) 126 25-125 H [facility] HospitalLipase2018-06-04 14:10:00 Test Item Value Reference Range Interpretation Comments Lipase (test code = 3040-3) 98 8-78 H [facility] HospitalD-Dimer Quantitative (PE/DVT)2017-10-23 14:02:00 Test Item Value Reference Range Interpretation Comments D-Dimer Quantitative (PE/DVT) (test 0.49 0.00-0.45 H code = 93568-1) [facility] HospitalDirect Gszymrrog9963-18-89 13:47:00 Test Item Value Reference Range Interpretation Comments Direct Bilirubin (test code = 04941-0) 0.2 0.0-5.0 [facility] HospitalMagnesium Hglrp6500-75-55 06:52:00 Test Item Value Reference Range Interpretation Comments Magnesium Level (test code = 27364-3) 1.5 1.3-2.1 [facility] HospitalUrine YXN8930-39-60 05:09:00 Test Item Value Reference Range Interpretation Comments Urine WBC (test code = 5821-4) NONE 0-5 [facility] HospitalUrine UPX6375-11-07 05:09:00 Test Item Value Reference Range Interpretation Comments Urine RBC (test code = 03706-6) NONE 0-5 [facility] Sdiexzkl2380-63-33 05:09:00 Test Item Value Reference Range Interpretation Comments Urine Bacteria (test code = 02304-4) NONE NONE [facility] HospitalUrine Epithelial Endsp1823-59-01 05:09:00 Test Item Value Reference Range Interpretation Comments Urine Epithelial Cells (test code = NONE NONE 69628-5) [facility] HospitalUrine Ymlcz4932-55-83 04:46:00 Test Item Value Reference Range Interpretation Comments Urine Color (test code = 5778-6) YELLOW YELLOW [facility] HospitalUrine Ejmlsci5864-07-58 04:46:00 Test Item Value Reference Range Interpretation Comments Urine Clarity (test code = 67234-1) CLEAR CLEAR [facility] HospitalUrine Specific Daahsun0146-68-15 04:46:00 Test Item Value Reference Range Interpretation Comments Urine Specific [place] (test code = 1.010 1.010-1.025 5811-5) [facility] HospitalUrine hN6333-33-27 04:46:00 Test Item Value Reference Range Interpretation Comments Urine pH (test code = 52990-8) 8 5-7 H [facility] HospitalUrine Leukocyte Yrlawgei2920-97-81 04:46:00 Test Item Value Reference Range Interpretation Comments Urine Leukocyte Esterase (test code NEGATIVE NEGATIVE = 5799-2) [facility] HospitalUrine Fyajenn0067-86-56 04:46:00 Test Item Value Reference Range Interpretation Comments Urine Nitrite (test code = 80089-7) NEGATIVE NEGATIVE [facility] HospitalUrine Jboncrg1428-98-88 04:46:00 Test Item Value Reference Range Interpretation Comments Urine Protein (test code = 5804-0) NEGATIVE NEGATIVE [facility] HospitalUrine Glucose (UA)2017-03-05 04:46:00 Test Item Value Reference Range Interpretation Comments Urine Glucose (UA) (test code = NEGATIVE NEGATIVE 2349-9) [facility] HospitalUrine Ejbogrb8851-76-82 04:46:00 Test Item Value Reference Range Interpretation Comments Urine Ketones (test code = 76105-3) NEGATIVE NEGATIVE [facility] HospitalUrine Frzcvdwgfocl4604-07-93 04:46:00 Test Item Value Reference Range Interpretation Comments Urine Urobilinogen (test code = 0.2 0.2-1 00001-8) [facility] HospitalUrine Xaauukvxv7271-89-40 04:46:00 Test Item Value Reference Range Interpretation Comments Urine Bilirubin (test code = 1978-6) NEGATIVE NEGATIVE [facility] HospitalUrine Mbgmp2618-76-72 04:46:00 Test Item Value Reference Range Interpretation Comments Urine Blood (test code = 79829-2) 2+ NEGATIVE H [facility] HospitalCTA BRAIN [facility] [address] [address] Patient Name: ERNIE VANCE MR #: [id number] : 1960 Age/Sex: 57/M Req #: [id number] Adm Physician: ALEXIS COX MD Ordered by: ALEXIS COX MD Report #: [id number] Location: [facility] Room/Bed: [place] [address] Procedure: [id number] CT/CTA BRAIN Exam Date: 10/24/17 Exam Time: [...] M.D. on 10/24/2017 4:33 PM Dictated By: AN AMARIA ARTEAGA MD 0636 Transcribed By: ANDREE on 10/24/17 1633 COPY TO: ALEXIS COX MDCT BRAIN [place] [address] Patient Name: ERNIE VANCE MR #: [id number] : 1960 Age/Sex: 57/M Req #: [id number] Adm Physician: Ordered by: ARLETH WAHL MD Report #: [id number] Location: ER Room/Bed: Procedure: [id number] CT/CT BRAIN WO Exam Date: 10/23/17 Exam [...] ARLETH WAHL MD CTA CHEST [place] [address] Patient Name: ERNIE VANCE #: [id number] : 1960 Age/Sex: 57/M Req #: [id number] Adm Physician: Ordered by: ARLETH WAHL MD Report #: [id number] Location: ER Room/Bed: Procedure: [id number] CT/CTA CHEST Exam Date: 10/23/17 Exam Time: [...] reviewed and is below limits set by [facility]). FINDINGS: Lines and Tubes: Pacemaker [...] possible. 3. Hepatic steatosis. Signed by: Dr. Malachi Irizarry MD on 10/23/2017 4:21 PM Dictated By: MALACHI IRIZARRY MD 162 Transcribed By: ANDREE on 10/23/17 162 COPY TO: ARLETH WAHL V [facility] SINGLE (PORTABLE) [place] [address] Patient Name: ERNIE VANCE MR #: [id number] : 1960 Age/Sex: 57/M Req #: [id number] Adm Physician: Ordered by: ARLETH WAHL MD Report #: [id number] Location: ER Room/Bed: Procedure: [id number] DX/CHEST SINGLE (PORTABLE) Exam Date: 10/23/17 Exam [...] at 14:43 Dictated By: ELIE BARFIELD MD 42 Transcribed By: ANIBAL on 10/23/171442 COPY TO: ARLETH WAHL V MDCT BRAIN [place] [address] Patient Name: ERNIE VANCE MR #: [id number] : 1960 Age/Sex: 56/M Req #: [id number] Adm Physician: Ordered by: JACQUELYN OMNTES DE OCA MD Report #: [id number] Location: ER Room/Bed: Procedure: [id number] CT/CT BRAIN WO Exam Date:Exam Time: REPORT [...] DE OCA MD CT CERVICAL SPINE WO [place] [address] Patient Name: ERNIE VANCE MR #: [id number] : 1960 Age/Sex: 56/M Req #: [id number] Adm Physician: Ordered by: JACQUELYN MONTES DE OCA MD Report #: [id number] Location: ER Room/Bed: Procedure: [id number] CT/CT CERVICAL SPINE WO Exam Date: Exam [...] 04/04/17206 COPY TO: JACQUELYN MONTES DE OCA [facility] SINGLE (PORTABLE) [place] [address] Patient Name: ERNIE VANCE MR #: [id number] : 1960 Age/Sex: 56/M Req #: [id number] Adm Physician: Ordered by: JACQUELYN MONTES DE OCA MD Report #: [id number] Location: ER Room/Bed: Procedure: [id number] DX/CHEST SINGLE (PORTABLE) Exam Date: 04/04/17 Exam [...] OCA MDHIP RIGHT 2-3 VW (+/- PELVIS) [place] [address] Patient Name: ERNIE VANCE MR #: [id number] : 1960 Age/Sex: 56/M Req #: [id number] Adm Physician: Ordered by: JACQUELYN MONTES DE OCA MD Report #: [id number] Location: ER Room/Bed: Procedure: [id number] DX/HIP RIGHT 2-3 VW (+/- PELVIS) Exam [...] JACQUELYN AMAYA MDSP LUMBAR, COMPLETE MIN 4VW [place] [id number] Patient Name: ERNIE VANCE MR #: [id number] : 1960 Age/Sex: 56/M Req #: [id number] Adm Physician: Ordered by: JACQUELYN MONTES DE OCA MD Report #: [id number] Location: ER Room/Bed: Procedure: [id number] DX/SP LUMBAR, COMPLETE MIN 4VW Exam Date: [...] 04/04/17227 COPY TO: JACQUELYN MONTES DE [place] [address] Patient Name: ERNIE VANCE MR #: [id number] : 1960 Age/Sex: 56/M Req #: [id number] [facility] Physician: NICHELLE PALACIOS MD Ordered by: SCOTT AMIN MD Report #: [id number] Location: [facility] Room/Bed: [facility] 186-1 Procedure: [id number] US/US ABDOMEN COMPLETE Exam Date: 03/08/17 Exam [...] Right renal simple cyst. Dictated by: Brooke Sampson M.D. on 03/08/2017 at 10:40 Electronically approved by: Brooke Sampson M.D. on03/08/2017 at 10:40 Dictated By: BROOKE SAMPSON MD 1040 Transcribed By: ANIBAL on 03/08/17 1040 COPY TO: SCOTT AMIN [facility] SINGLE (PORTABLE) [place] [address] Patient Name: ERNIE VANCE MR #: [id number] : 1960 Age/Sex: 56/M Req #: [id number] Adm Physician: Ordered by: JACQUELYN MONTES DE OCA MD Report #: [id number] Location: ER Room/Bed: Procedure: [id number] DX/CHEST SINGLE (PORTABLE) Exam Date: 03/05/17 Exam [...] 03/05/17534 COPY TO: JACQUELYN MONTES DE OCA MD"
== END 2021-03-31 23:57 | disposition home or self-care (01) ==
LOC: ER 22:28
DX: E11.40 Type 2 diabetes mellitus with diabetic neuropathy, unspecified (principal); M79.7 Fibromyalgia; M19.90 Unspecified osteoarthritis, unspecified site; I10 Essential (primary) hypertension; E03.9 Hypothyroidism, unspecified; E78.5 Hyperlipidemia, unspecified; K21.9 Gastro-esophageal reflux disease without esophagitis; Z95.0 Presence of cardiac pacemaker; Z89.512 Acquired absence of left leg below knee; Z89.511 Acquired absence of right leg below knee; Z86.73 Personal history of transient ischemic attack (TIA), and cerebral infarction without residual deficits; Z87.891 Personal history of nicotine dependence
CPT/HCPCS: 36415; 71045; 80048; 80076; 83735; 84484; 85025; 93005; 96374; 99285

== ENCOUNTER 2021-06-08 00:41 | Emergency (ER) | payer OTHER ==
[2021-06-08] MEDS ORDERED: MORPHINE 2 MG/ML SYR ONE (01:39)
[2021-06-08] MEDS ORDERED: ONDANSETRON 4 MG/2 ML VIAL ONE (01:40)
--- OUTSIDE RECORDS SUMMARY | 2021-06-08 01:43 | XMS REPORT | Continuity of Care Document ---
:1960 Author Organization [facility] t Address [address] [place] [address] Care Team Providers Name Role Phone MONIKA HALL MD Primary Care Physician Harshal Zhu Attending Clinician Unavailable Tamir Shah [...] Clinician Unavailable Ivana HALL Attending Clinician Ibikunle HAND POLISHER, F Attending Clinician Manolo SCRUGGS Attending Clinician Rebecca HALL Attending Clinician Brooks MENDOZA Attending Clinician Jose HALL Attending Clinician Liz HALL Attending Clinician Marixa HALL Attending Clinician Toma Gunter MD Attending Clinician TOMA GUNTER Attending [...] Unavailable Anna HALL, K.H. Attending Clinician Troy Martin Attending Clinician Rosa HALL Attending Clinician Luis PALOMO Attending Clinician LUIS Attending Clinician Unavailable James Attending Clinician TRAVIS Attending Clinician Unavailable Nola HALL Attending Clinician NOLA Attending Clinician Unavailable NOLA Attending Clinician Unavailable LOAN SHIRLEY Attending Clinician Unavailable Rober RAE, Loan Attending Clinician Nova RAE, Thanh Attending Clinician Emy SCRUGGS Attending Clinician Malia HALL, Beth Arreola Attending Clinician [phone] Ashley Allen MD Attending Clinician BROOKE Attending Clinician Unavailable Andrew MONTES DE OCA Attending Clinician Unavailable PHILIP Attending Clinician Unavailable Troy Martin Admitting Clinician Unavailable KNOW Admitting Clinician Unavailable [...] Admitting Clinician Garfield CARRILLO Admitting Clinician Unavailable LUIS Admitting Clinician Unavailable HUMAIRA Admitting Clinician Unavailable Nola HALL Admitting Clinician NOLA Admitting Clinician Unavailable LOAN SHIRLEY Admitting Clinician Unavailable Rober RAE, Loan Admitting Clinician Beth Finley MD Admitting Clinician [phone] BROOKE Admitting Clinician Unavailable PHILIP Admitting Clinician Unavailable Payers Payer Name Policy Type Policy Number Effective Date Expiration Date S ource [employer] [id number] 2018spring 00:00:00 [employer] [id number] 2004 LUCY Frankel 00:00:00 [facility] Advance Directives Directive Decision Effective Termination Comments Source Date Date Healthcare Agents on N/A Univ ersity FileNameRelationshipHealthcare [facility] Agent Medical RelationshipCommunicationHortencia Branch E[facility]adaMotherHealth Care [phone] (Mobile) Problems Condition Condition Condition Status Onset Resolution Last Treating Co mments Source Name Details Category Date Date Treatment Clinician Date Pulmonary Pulmonary Disease Active Uni vers hypertensi hypertensi 8-16 it y of on on 00:00: [place] 00 Medical Branch IRVING IRVING Disease Active Univers (dyspnea (dyspnea 8-15 ity of on on 00:00: [place] exertion) exertion) 00 [facility] Branch Pleural Pleural Disease Active Univers effusion, effusion, 8-13 ity of bilateral bilateral [place] CHF CHF Disease Active Univers (congestiv (congestiv 5-05 it y of e heart e heart 00:00: [place] failure), failure), 00 [facility] NYHA class NYHA class Br anch I, [...] Disease Active Univers 3-08 ity of 00:00: Medical Branch Obesity Obesity Disease Active Univers (BMI (BMI 2-23 ity of 30-39.9) 30-39.9) 00:00: Medical Branch Diabetic Diabetic Disease Active Unive rs foot foot 2-19 ity of infection [place] 00:[place] Osteomyeli Osteomyeli Disease Active 2019-05 U nivers tis tis 0-26 ity of 00:: Medical Branch Preop Preop Disease Active 2019-05 Univers cardiovasc cardiovasc 0-26 it y of ular exam ular exam 00:00[place] Chronic Chronic Disease Active 2019-05 Univers diastolic diastolic 0-26 ity of congestive congestive 00:[place] heart heart 00 Medical failure failure Branch KALYN (acute KALYN (acute Disease Active 2019-05 U nivers kidney kidney 0-26 ity of injury) injury) 00:00: Medical Branch Left foot Left foot Disease Active 2019-05 Overview: Univers pain pain 0-25 Formattin ity of 00:00: g of this 00 note Medical might be Branch different from the original. Added automatic ally from request for surgery [id number] Troponin I Troponin I Disease Active 2020- U nivers above above 9-16 ity of reference reference 00:00[place] range range 00 Medical [place] Pleural Pleural Disease Active 2020- Univers effusion effusion 9-15 ity of 00:00: [place] 00 Medical Branch Elevated Elevated Disease Active 2020- Unive rs brain brain 9-15 ity of natriureti natriureti 00:[place] c peptide c peptide 00 Medi uriel (BNP) (BNP) Branch level level Chest pain Chest pain Disease Active 2020-0 U nivers in adult in adult 9-14 ity of 00:00: Medical Branch Cellulitis Cellulitis Disease Active 2020-0 U nivers of left of left 6-27 ity of foot foot 00:00: 00 Medical Branch Pacemaker Pacemaker Disease Active 2020-0 Uni vers 3-18 ity of 00:00: [place] 00 Medical Branch PAF PAF Disease Active Univers (paroxysma (paroxysma 3-18 it y of l atrial l atrial 00:00: [place] fibrillati fibrillati 00 Me dical on) on) Branch Abdominal Abdominal Disease Active Uni vers pain pain 2-27 ity of 00:00: [place] 00 Medical Branch Pacemaker Pacemaker Disease Active Uni vers malfunctio malfunctio 2-04 it y of n n 00:00: [place] [facility] Cellulitis Cellulitis Disease Active 2018-05 U nivers 1-19 ity of 00:00: [place] 00 Medical Branch Arterioven Arterioven Disease Active U [...] artery 8-29 ity of disease disease 00:00: [place] involving involving 00 Medi uriel [place] 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 Unive rs artery artery 8-29 ity of disease disease 00:00: [place] involving involving 00 Medi uriel [place] Branch 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 Type 2 Type 2 Disease Active Univers diabetes diabetes 8-29 ity of mellitus mellitus 00:00: [place] without without 00 Medical complicati complicati Br anch on, on, without without long-term long-term current current use of use of insulin insulin Essential Essential Disease Active Uni vers hypertensi hypertensi 8-29 it y of on on 00:00: [place] 00 Medical Branch Other Other Disease Active Univers hyperlipid hyperlipid 8-29 it y of emia emia 00:00: [place] [facility] Stroke Stroke Disease Active Univers 5-12 ity of 00:00: Medical Branch Left-sided Left-sided Disease Active U nivers weakness weakness 5-11 ity of 00:00: Medical Branch Left sided Left sided Disease Active U nivers numbness numbness 5-11 ity of 00:00: 00 [facility] Branch S/P admn S/P admn Disease Active Unive rs tPA in tPA in 4-11 ity of diff fac diff fac 00:00: w/n last w/n last Medica l 24 hr bef 24 hr bef Bran ch adm to adm to crnt fac crnt fac Unstable Unstable Disease Active Unive rs angina angina 4-10 ity of 00:00: Medical Branch Atypical Atypical Disease Active Unive rs chest pain chest pain 2-22 it y of 00:00: [facility] Chest pain Chest pain Disease Active U nivers 2-22 ity of 00:00: [facility] Chest pain Chest pain Problem Active [facility] 00 [facility] Coronary CAD Problem Active [facility] (coronary [facility] - disease artery Patient disease) [facility] Diabetic DKA Problem Active [facility] ketoacidos (diabetic Esme es - is ketoacidos Patien t es) [facility] Hyperglyce Hyperglyce Problem Active [facility] bambi bambi [facility] Patient [facility] Hypertensi Hypertensi Problem Active [facility] on on [facility] Patient [facility] Pancreatit Pancreatit Problem Active [facility] is is [facility] Patient [facility] Uncontroll Uncontroll Problem Active [facility] - diabetes diabetes Patien t mellitus mellitus [facility] Allergies, Adverse Reactions, Alerts Allergy Allergy Status Severity Reaction(s) Onset Inactive Treating Comm ents Source Name Type Date Date Clinician No Known DA Active U [facility] Allergie 3-22 [place] 00:00: d 00 [facility] No Known DA Active U [facility] Allergie 3-22 [place] 00:00: d 00 [facility] No Known DA Active U 2017-05 [facility] Allergie 2-31 Clear s 00:00: [place] 00 [facility] No Known DA Active U 2018-1 [facility] Allergie 2-31 Clear s 00:00: [place] 00 [facility] No Known DA Active U 2018-0 [facility] All[facility]ie 3-26 [place] 00[facility] NO KNOWN Drug Active Univers ALLERGIE Class ity of S [place] [facility] [place] Social History Social Habit Start Date Stop Date Quantity Comments Source Exposure to Not sure University of SARS-CoV-2 [place] Medical (event) Branch History of Cigarette Smoker Universi ty of tobacco use [facility] Tobacco use and 2021-01-02 2021-01-02 Never used Universit y of exposure 00:00:00 00:00:00 [facility] [place] [facility] Branch Alcohol intake 2021-01-02 2021-01-02 Current University of 00:00:00 00:00:00 non-drinker of [facility] alcohol (finding) Branch Tobacco Comment 2021-01-01 2021-01-01 quit 7 years ago Uni versity of 00:00:00 00:00:00 [place] [facility] History SDOH 2020-03-16 2020-03-16 3 University o f Financial 00:00:00 00:00:00 [place] [facility] History SDOH Food 2020-03-16 2020-03-16 2 Univers ity of Worry 00:00:00 00:00:00 [place] [facility] History SDOH Food 2020-03-16 2020-03-16 2 Univers ity of Scarcity 00:00:00 00:00:00 [place] [facility] History SDOH 2020-03-16 2020-03-16 1 University o f Transport Med 00:00:00 00:00:00 [place] Medic al Branch History SDOH 2020-03-16 2020-03-16 1 University o f Transport Non-Med 00:00:00 00:00:00 [place] M edical Branch Alcohol Comment 2019-07-18 2019-07-18 quit drinking Univer sity of 00:00:00 00:00:00 2013 but drank [facility] heavily before Branch this Sex Ass[birth year] At [birth year] Universit y of 00:00:00 00:00:00 [facility] Smoking Status Start Date Stop Date Source Unknown if ever smoked Universit y of [facility] Former smoker 2021-01-02 00:00:00 2021-01-02 00:00:00 Universi ty of [place] [facility] Medications Ordered Filled Start Stop Current Ordering [...] by mouth ity of tablet 23:12: daily. [place] [address] Medical Branch venlafaxine Yes 75mg Take 75 mg Univers 75 mg 8-16 by mouth 2 ity of tablet 23:12: (two) [place] 14 times Medical daily. Branch atorvastati Yes 40mg Take 40 mg Univers n 40 mg 8-16 by mouth ity of tablet 23:12: at [place] [address] bedtime. Medical Branch gabapentin Yes 800mg Take 800 Un [place] 800 mg 8-16 mg by ity of tablet 23:12: mouth 3 14 (three) Medical times Branch daily. omeprazole Yes 20mg Take 20 mg U nivers 20 mg 8-16 by mouth ity of capsule 23:12: daily. [address] Branch lisinopriL Yes 2.5mg Take 2.5 Un [place] 2.5 mg 8-16 mg by ity of tablet 23:12: mouth [place] 14 daily. Medical Branch levothyroxi Yes 50ug Take 50 Uni vers ne 50 mcg 8-16 mcg by ity of tablet 23:12: mouth [place] 14 every Medical morning. Branch ASPIRIN Yes Take by Univer s ORAL 8-16 mouth ity of 23:12: daily. [place] [address] Medical Branch glipiZIDE Yes 10mg Take 10 mg Un [place] 10 mg 8-16 by mouth ity of tablet 23:12: daily. [place] [address] Medical Branch metFORMIN Yes 500mg Take 500 Uni vers 500 mg 8-16 mg by ity of tablet 23:12: mouth [place] 14 daily. Medical Branch tamsulosin Yes Take by Uni vers 0.4 mg 24 8-16 mouth ity of hr capsule 23:12: daily. [address] fenofibrate Yes 200mg Take 200 U nivers micronized 8-16 mg by ity of 200 mg 23:12: mouth [place] capsule 14 daily with Medica l breakfast. Branch spironolact Yes 25mg Take 25 mg Univers one 25 mg 8-16 by mouth ity of tablet 23:12: daily. [place] [address] Medical Branch venlafaxine Yes 75mg Take 75 mg Univers 75 mg 8-16 by mouth 2 ity of tablet 23:12: (two) [place] 14 times Medical daily. Branch atorvastati Yes 40mg Take 40 mg Univers n 40 mg 8-16 by mouth ity of tablet 23:12: at [place] [address] bedtime. Medical Branch gabapentin Yes 800mg Take 800 Un [place] 800 mg 8-16 mg by ity of tablet 23:12: mouth 3 14 (three) Medical times Branch daily. omeprazole Yes 20mg Take 20 mg U nivers 20 mg 8-16 by mouth ity of capsule 23:12: daily. [place] [address] Medical Branch lisinopriL Yes 2.5mg Take 2.5 Un [place] 2.5 mg 8-16 mg by ity of tablet 23:12: mouth [place] 14 daily. Medical Branch levothyroxi Yes 50ug Take 50 Uni vers ne 50 mcg 8-16 mcg by ity of tablet 23:12: mouth [place] 14 every Medical morning. Branch ASPIRIN Yes Take by Univer s ORAL 8-16 mouth ity of 23:12: daily. [place] [address] Medical Branch glipiZIDE Yes 10mg Take 10 mg Un [place] 10 mg 8-16 by mouth ity of tablet 23:12: daily. [place] [address] Medical Branch metFORMIN Yes 500mg Take 500 Uni vers 500 mg 8-16 mg by ity of tablet 23:12: mouth [place] 14 daily. Medical Branch tamsulosin Yes Take by Uni vers 0.4 mg 24 8-16 mouth ity of hr capsule 23:12: daily. [place] [address] Medical Branch tc 2020- No [id number] 44mCi 44 Univers 99m-tetrofo 8-16 08-16 millicurie i ty of smin 17:00: 16:47 , [place] (MYOVIEW) 00 :00 Intravenou Medi uriel injection s, ONCE, 1 Bran ch 44 dose, [facility] millicurie 01/04/21 at 1200, Routine tc 2020-0 2020- No [id number] 15.2mCi 15.2 Unive rs 99m-tetrofo 01-04 millicurie i ty of smin 15:45: 15:35 , [place] (MYOVIEW) 00 :00 Intravenou Medi uriel injection s, ONCE, 1 Bran ch 15.2 dose, [facility] millicurie 01/04/21 at 1045, Routine furosemide 0 Yes 40mg 40 mg, IV Un charley (LASIX) 01-04 Push, ity of injection 14:00: QAM+PM, [place] 40 mg 00 First dose Medical (after Branch last modificati on) on Mon01/04/21 at 0900, Until Discontinu ed, PIERRE metoprolol Yes 25mg 25 mg, Unive rs succinate 16 Oral, ity of XL (TOPROL 14:00: DAILY, [place] XL) tablet 00 First dose Med ical 25 mg (after Branch last modificati on) on Mon01/04/21 at 0900, Until Discontinu ed, Routine NaCl 0.9% 2020- No 250mL at 999 Univ ers (NS) bolus 01-04 08-16 mL/hr, 250 it y of infusion 09:30: 08:29 mL, IV [place] 250 mL 00 :00 Infusion, Medical ONCE, 1 Branch dose, Mon01/04/21 at 0430, Routine NaCl 0.9% 2020-0 2020- No 250mL at 999 Univ ers (NS) bolus 01-04 08-16 mL/hr, 250 it y of infusion 08:30: 07:30 mL, IV [place] 250 mL 00 :00 Infusion, Medical ONCE, 1 Branch dose, Mon01/04/21 at 0330, Routine atorvastati Yes 80mg 80 mg, Univ ers n (LIPITOR) 16 Oral, QHS, it y of tablet 80 02:00: First dose [place] mg 00 (after Medical last Branch modificati on) on Mon01/03/21 at 2100, Until Discontinu ed, Routine fenofibrate Yes 67mg 67 mg, Univ ers micronized 8-14 Oral, ity of (LOFIBRA) 14:00: DAILY, [place] capsule 67 00 First dose Med ical mg on [facility] 01/02/21 at 0900, Until Discontinu ed, Routine tamsulosin 2020-0 Yes .4mg 0.4 mg, Univ ers (FLOMAX) 8-14 Oral, ity of capsule 0.4 14:00: DAILY, [place] mg 00 First dose Medical on [facility] 01/02/21 at 0900, Until Discontinu ed, Routine omeprazole 2020-0 Yes 20mg 20 mg, Unive rs (PRILOSEC) 8-14 Oral, ity of capsule 20 14:00: DAILY, [place] mg 00 First dose Medical on [facility] 01/02/21 at 0900, Until Discontinu ed, Routine lisinopriL 2020-0 Yes 2.5mg 2.5 mg, Uni vers (PRINIVIL,Z 8-14 Oral, ity of ESTRIL) 14:00: DAILY, [place] tablet 2.5 00 First dose Med ical mg on [facility] 01/02/21 at 0900, Until Discontinu ed, Routine gabapentin 2020-0 Yes 800mg 800 mg, Uni vers (NEURONTIN) 8-14 Oral, TID, it y of tablet 800 13:00: First dose [place] mg 00 on [facility] 01/02/21 at Branch 0800, Until Discontinu ed, Routine apixaban 2020-0 Yes 1358 5mg 5 mg, Univers (ELIQUIS) 8-14 Oral, BID, ity of tablet 5 mg 13:00: First dose [place] 00 on [facility] 01/02/21 at Branch 0800, Until Discontinu ed, Routine glipiZIDE 2020-0 Yes 10mg 10 mg, Univer s (GLUCOTROL) 8-14 Oral, ity of tablet 10 12:30: BIDAC, [place] mg 00 First dose Medical on [facility] 01/02/21 at 0730, Until Discontinu ed, Routine levothyroxi 2020-0 Yes 50ug 50 mcg, Uni vers ne 8-14 Oral, ity of (SYNTHROID) 11:00: QAM-0600, [place] tablet 50 00 First dose Medi uriel mcg on [facility] 01/02/21 at 0600, Until Discontinu ed, Routine morpHINE 2020-0 Yes 2mg 2 mg, Slow Uni vers injection 2 01-02 IV Push, ity of mg 07:10: Q8HPRN, [place] 26 Starting Medical [facility] Branch 01/02/21 at 0210, Until Discontinu ed, Routine, Pain (scale 7-10) proMETHazin 2020- No 25mg 25 mg, IV Univers e 01-02 Piggyback, ity of (PHENERGAN) 06:30: 05:42 ONCE, 1 [place] 25 mg in 00 :00 dose, Sat Medica l NaCl 0.9% 01/02/21 at [facility] ch (NS) 50 mL 0130, IV Routine piggyback spironolact Yes 25mg 25 mg, Univ ers one 01-02 Oral, BID, ity of (ALDACTONE) 04:15: First dose [place] tablet 25 00 (after Medical mg last Branch modificati on) on Mon01/01/21 at 2315, Until Discontinu ed, Routine furosemide 2020- No 40mg 40 mg, IV U nivers (LASIX) 01-02 Push, Q8H, ity o f injection 04:15: 11:45 First dose [place] 40 mg 00 :38 (after Medical last Branch modificati on) on Mon01/01/21 at 2315, Until Discontinu ed, PIERRE isosorbide 2020- No 30mg 30 mg, Univ ers mononitrate 01-0216 Oral, QPM, i ty of (IMDUR) 24 04:15: 08:34 First dose [place] hr tablet 00 :36 on Mon Medical 30 mg 01/01/21 at Branch 2315, Until Discontinu ed, Routine traMADoL Yes 50mg 50 mg, Univers (ULTRAM) 01-02 Oral, ity of tablet 50 04:05: Q8HPRN, [place] mg 52 Starting Medical [facility] 01/01/21 at 2305, Until Discontinu ed, Routine, Pain (scale 4-6) atorvastati 2020- No 40mg 40 mg, Uni vers n (LIPITOR) 01-0215 Oral, QHS, i ty of tablet 40 02:00: 23:16 First dose [place] mg 00 :49 on Mon Medical 01/01/21 at Branch 2100, Until Discontinu ed, Routine morpHINE 2020- No 2mg 2 mg, Slow Un [place] injection 2 01-02-14 IV Push, ity of mg 01:47: 04:06 Q4HPRN, [place] 39 :01 Starting Medical Fri Branch 01/01/21 at 2047, Until 01/01/21 at 2306, Routine, Pain (scale 7-10), Chest pain docusate [...] Testing 2044, Until Discontinu ed, Routine venlafaxine 0 Yes 75mg 75 mg, Univ ers (EFFEXOR) 814 Oral, BID, ity of tablet 75 01:45: First dose [place] mg 00 on Mon Medical 01/01/21 at Branch 2044, Until Discontinu ed, Routine aspirin 0 Yes 81mg 81 mg, Univers chewable 01-02 Oral, QAM ity of tablet 81 01:45: WITH [place] mg 00 BREAKFAST, Medical First dose Branch on Mon01/01/21 at 2044, Until Discontinu ed, Routine metoprolol 0 2020- No 25mg 25 mg, Univ ers succinate 01-02 08-16 Oral, BID, ity of XL (TOPROL 01:45: 11:45 First dose [place] XL) tablet 00 :38 on Fri Medical 25 mg 01/01/21 at Branch 2044, Until Discontinu ed, Routine ondansetron 0 Yes 4mg 4 mg, Slow Univers (ZOFRAN 01-02 IV Push, ity of (PF)) 01:36: Q6HPRN, [place] injection 4 51 Starting Medi uriel mg Fri Branch 01/01/21 at 2036, Until Discontinu ed, Routine, Nausea and Vomiting (N/V) glucagon 2021-0 Yes 1mg 1 mg, Univers (GLUCAGEN 01-02 Intramuscu ity of DIAGNOSTIC 01:31: lar, PRN, [...] tablet 10 05 Starting Medica l mg Fri Branch 01/01/21 at 2027, Until Discontinu ed, Routine, Muscle Spasms nitroglycer Yes .4mg 0.4 mg, Uni vers in 01-02 Sublingual ity of (NITROSTAT) 01:18: , Q5MIN [place] J as sublingual 25 PRN, Medical tablet 0.4 Starting Branc h mg 01/01/21 at 2018, Until Discontinu ed, Routine, Chest [...] at Branch 1715, PIERRE iopamidol 2020- No [id number] 100mL 100 mL, Univers (ISOVUE 01-01 Intravenou ity o f 370-500 mL) 22:00: 20:48 s, ONCE, 1 [place] injection 00 :00 dose, Fri Medic al 100 mL 01/01/21 at Branch 1700, Routine FENTanyl PF 2020- No 75ug 75 mcg, Un [place] (SUBLIMAZE 01-01 Slow IV ity o f (PF)) 21:30: 20:29 Push, [place] injection 00 :00 ONCE, 1 Medical 75 mcg dose, Fri [place] 01/01/21 at 1630, Routine metoprolol 2020- No [id number] 25mg Take 1 Univers succinate 12-17- tablet by ity of XL 25 mg 24 00:00: 04:59 mouth [place] hr tablet 00 :00 daily for Medic al 30 days. Branch metoprolol 2020- No [id number] 25mg Take 1 Univers succinate 12-17 tablet by ity of XL 25 mg 24 00:00: 04:59 mouth [place] hr tablet 00 :00 daily for Medic al 30 days. Branch metoprolol 2020- No [id number] 25mg Take 1 Univers succinate 12-17 tablet by ity of XL 25 mg 24 00:00: 04:59 mouth [place] hr tablet 00 :00 daily for Medic al 30 days. Branch metoprolol 2020- No [id number] 25mg Take 1 Univers succinate 12-17- tablet by ity of XL 25 mg 24 00:00: 04:59 mouth [place] hr tablet 00 :00 daily for Medic al 30 days. Branch metoprolol 2020- No [id number] 25mg Take 1 Univers succinate 12-17 tablet by ity of XL 25 mg 24 00:00: 04:59 mouth [place] hr tablet 00 :00 daily for Medic al 30 days. Branch fenofibrate Yes 200mg Take 200 U nivers micronized 7-28 mg by ity of 200 mg 22:47: mouth [place] capsule 07 daily with Medica l breakfast. Branch spironolact Yes 25mg Take 25 mg Univers one 25 mg 7-28 by mouth ity of tablet 22:47: daily. 07 Medical Branch venlafaxine Yes 75mg Take [...] by mouth ity of capsule 22:47: daily. [place] [address] Medical Branch lisinopriL Yes 2.5mg Take 2.5 Un [place] 2.5 mg 7-28 mg by ity of tablet 22:47: mouth [place] 07 daily. Medical Branch levothyroxi Yes 50ug Take 50 Uni vers ne 50 mcg 7-28 mcg by ity of tablet 22:47: mouth [place] every Medical morning. Branch ASPIRIN Yes Take by Univer s ORAL 7-28 mouth ity of 22:47: daily. [place] [address] Medical Branch glipiZIDE Yes 10mg Take 10 mg Un [place] 10 mg 7-28 by mouth ity of tablet 22:47: daily. [place] [address] Medical Branch metFORMIN Yes 500mg Take 500 Uni vers 500 mg 7-28 mg by ity of tablet 22:47: mouth [place] 07 daily. Medical Branch tamsulosin Yes Take by Uni vers 0.4 mg 24 7-28 mouth ity of hr capsule 22:47: daily. [place] [address] Medical Branch fenofibrate Yes 200mg Take 200 U nivers micronized 7-28 mg by ity of 200 mg 22:47: mouth [place] capsule 07 daily with Medica l breakfast. Branch spironolact Yes 25mg Take 25 mg Univers one 25 mg 7-28 by mouth ity of tablet 22:47: daily. [place] [address] Medical Branch venlafaxine Yes 75mg Take 75 [...] ity of 200 mg 22:47: mouth [facility] 07 daily with Medica l breakfast. Branch spironolact Yes 25mg Take 25 mg Univers one 25 mg 7-28 by mouth ity of tablet 22:47: daily. Medical Branch venlafaxine Yes 75mg Take 75 mg Univers 75 mg 7-28 by mouth 2 ity of tablet 22:47: (two) [place] [address] times Medical daily. Branch atorvastati Yes 40mg Take 40 mg Univers n 40 mg 7-28 by mouth ity of tablet 22:47: at bedtime. Medical Branch gabapentin Yes 800mg Take 800 Un [place] 800 mg 7-28 mg by ity of tablet 22:47: mouth 3 [place] [address] (three) Medical times Branch daily. omeprazole Yes 20mg Take 20 mg U nivers 20 mg 7-28 by mouth ity of capsule 22:47: daily. [address] Branch lisinopriL Yes 2.5mg Take 2.5 Un [place] 2.5 mg 7-28 mg by ity of tablet 22:47: mouth daily. Medical Branch levothyroxi Yes 50ug Take 50 Uni vers ne 50 mcg 7-28 mcg by ity of tablet 22:47: mouth every Medical morning. Branch ASPIRIN Yes Take by Univer s ORAL - mouth ity of 22:47: daily. [address] Branch glipiZIDE Yes 10mg Take 10 mg Un [place] 10 mg -28 by mouth ity of tablet 22:47: daily. [place] [address] Medical Branch metFORMIN Yes 500mg Take 500 Uni vers 500 mg - mg by ity of tablet 22:47: mouth daily. Medical Branch tamsulosin Yes Take by Uni vers 0.4 mg 24 12-16 mouth ity of hr capsule 22:47: daily. [address] Branch metoprolol 2020- No 12.5mg Take 12.5 Univers succinate -16 12- mg by ity of 25 mg CSpX 21:24: 00:00 mouth. [place] 37 :00 Half tab. Medical Branch fenofibrate Yes 67mg 67 mg, [facility] ers micronized 12-16 Oral, ity of (LOFIBRA) 14:00: DAILY, [place] capsule 67 00 First dose Med ical mg on Mon12/16/20 at 0900, Until Discontinu ed, Routine tamsulosin Yes .4mg 0.4 mg, Univ ers (FLOMAX) 12-16 Oral, ity of capsule 0.4 14:00: DAILY[place] 00 First dose Medical on Mon Branch 12/16/20 at 0900, Until Discontinu ed, Routine spironolact Yes 25mg 25 mg, Univ ers one 12-16 Oral, ity of (ALDACTONE) 14:00: DAILY, [place] tablet 25 00 First dose Medi uriel mg on Mon12/16/20 at 0900, Until Discontinu ed, Routine omeprazole Yes 20mg 20 mg, Unive rs (PRILOSEC) 12-16 Oral, ity of capsule 20 14:00: DAILY, [place] mg 00 First dose Medical on Mon12/16/20 at 0900, Until Discontinu ed, Routine metoprolol Yes 25mg 25 mg, Unive rs succinate 12-16 Oral, ity of XL (TOPROL 14:00: DAILY, [place] XL) tablet 00 First dose Med ical 25 mg on Mon12/16/20 at 0900, Until Discontinu ed lisinopriL Yes 2.5mg 2.5 mg, Uni vers (PRINIVIL,Z 12-16 Oral, ity of ESTRIL) 14:00: DAILY, [place] tablet 2.5 00 First dose Med ical [...] Subcutaneo it y of injection 02:00: , [place] 15 Units 00 QAM+HS, Medical First dose Branch on Mon12/15/20 at 2100, Until Discontinu ed, Routine atorvastati Yes 40mg 40 mg, Univ ers n (LIPITOR) 12-16 Oral, QHS, it y of tablet 40 02:00: First dose [place] mg 00 on Mon [facility] 12/15/20 at Branch 2100, Until Discontinu ed, Routine venlafaxine Yes 75mg 75 mg, Univ ers (EFFEXOR) 12-16 Oral, BID, ity of tablet 75 01:00: First dose [place] mg 00 on [facility] 12/15/20 at Branch 2000, Until Discontinu ed, Routine apixaban Yes 1358 5mg 5 mg, Univers (ELIQUIS) 12-16 Oral, BID, ity of tablet 5 mg 01:00: First dose [place] 00 on [facility] 12/15/20 at Branch 2000, Until Discontinu ed, Routine albuterol Yes 2{puff} 2 Puff, [facility] [place] (VENTOLIN) 12-16 Inhalation ity of inhaler 2 01:00: , BID, [place] Puff 00 First dose Medical on [facility] 12/15/20 at 2000, Until Discontinu ed, Routine traMADoL 50 2020- No 4647 50mg Take 1 Uni vers mg tablet 12-16 tablet by ity of 00:00: 04:59 mouth [place] 00 :00 every 6 Medical (six) Branch hours as needed for Pain (scale 7-10) for up to 7 days. Indication s: acute pain traMADoL 50 2020- No 4647 50mg Take 1 Uni vers mg tablet 12-16 tablet by ity of 00:00: 04:59 mouth [place] 00 :00 every 6 Medical (six) Branch hours as needed for Pain (scale 7-10) for up to 7 days. Indication s: acute pain furosemide Yes 40mg 40 mg, Unive rs (LASIX) 12-15 Oral, ity of tablet 40 22:00: QAM+PM, [place] mg 00 First dose Medical on [facility] 12/15/20 at 1700, Until Discontinu ed, Routine gabapentin Yes 800mg 800 mg, Uni vers (NEURONTIN) 12-15 Oral, TID, it y of tablet 800 19:00: First dose [place] mg 00 on [facility] 12/15/20 at Branch 1400, Until Discontinu ed, Routine Sliding 0 Yes Subcutaneo Univ ers Scale 12-15 us, TID ity of Insulin - 17:00: MEALS+HS, [place] Lispro 00 First dose Medical (HumaLOG) + on [facility] 12/15/20 at Testing 1200, Until Discontinu ed, Routine glucagon Yes 1mg 1 mg, Univers (GLUCAGEN 12-15 Intramuscu ity of DIAGNOSTIC 16:45: lar, PRN, [place] KIT) 26 Starting Medical injection 1 Tue Branch mg 12/15/20 at 1145, Until Discontinu ed, PIERRE, Blood Glucose < or = 70 mg/dL and patient is unable to swallow or has mental changes. dextrose 50 Yes 25mL 25 mL, Univ ers % in water 12-15 Slow IV ity of (D50W) 16:45: Push, PRN, [place] injection 26 Starting Medica l 25 mL Tue Branch 12/15/20 at 1145, Until Discontinu ed, PIERRE, Blood Glucose < or = 70 mg/dL and patient is unable to swallow or has mental status changes. sulfur 202- No [id number] 5mL 5 mL, Unive rs hexafluorid 12-15 Intravenou i ty of e microsphr 16:00: 16:00 s, ONCE, 1 [place] (LUMASON) 00 :00 dose, Tue Medic al injection 5 12/15/20 at Br anch mL 1100, Routine
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 : NINFA CASTILLO metoclopram 2020- No 10mg 10 mg, Uni vers dora HCl 12-15 Slow IV ity of (REGLAN) 14:45: 13:31 Push, [place] injection 00 :00 ONCE, 1 Medical 10 mg dose, Tue Branch 12/15/20 at 0945, PIERRE ondansetron Yes 4mg 4 mg, Slow Univers (ZOFRAN 12-15 IV Push, ity of (PF)) 14:19: Q6HPRN, [place] injection 4 47 Starting Medi uriel mg Tue Branch 12/15/20 at 0919, Until Discontinu ed, Routine, Nausea and Vomiting (N/V) morpHINE 2020- No 2mg 2 mg, Slow [place] injection 2 12-15 IV Push, ity of mg 14:19: 14:18 Q4HPRN, [place] 37 :37 Starting Medical Tue Branch 12/15/20 at 0919, Until 12/16/20 at 0918, Routine, Pain (scale 7-10) acetaminoph 2020- No 1{tbl} 1 tablet, Univers en-codeine 12-15 Oral, ity of (TYLENOL 14:19: 14:18 Q6HPRN, [place] #3) 300-30 34 :34 Starting Medic al mg tablet 1 [facility] tablet 12/15/20 at 0919, Until [place] 12/17/20 at 0918, Routine, Pain (scale 4-6) acetaminoph Yes 650mg 650 mg, [facility] [place] en 12-15 Oral, ity of (TYLENOL) 14:19: Q6HPRN, [place] tablet 650 31 Starting Medic al mg [facility] Branch 12/15/20 at 0919, Until Discontinu ed, Routine, Pain (scale 1-3) ondansetron 2020- No 4mg 4 mg, Slow Univers (ZOFRAN 12-15 IV Push, ity of (PF)) 12:00: 11:00 ONCE, 1 [place] injection 4 00 :00 dose, Tue Med ical mg 12/15/20 at Branch 0700, PIERRE FENTanyl PF 2020- No 75ug 75 mcg, [facility] [place] (SUBLIMAZE 12-15 Slow IV ity o f (PF)) 12:00: 11:00 Push, [place] injection 00 :00 ONCE, 1 Medical 75 mcg dose, [facility] Branch 12/15/20 at 0700, STAT ondansetron 2020- No 4mg 4 mg, Slow Univers (ZOFRAN 12-15 IV Push, ity of (PF)) 07:36: 07:37 ONCE, 1 [place] injection 4 00 :00 dose, Tue Med ical mg 12/15/20 at Branch 0245, PIERRE morpHINE 2020-0 2020- No 4mg 4 mg, Slow [place] injection 4 12-15 IV Push, ity of mg 07:36: 07:39 ONCE, 1 [place] 00 :00 dose, Tue Medical 12/15/20 at Branch 0245, STAT morpHINE 2020-0 2020- No 4mg 4 mg, Slow [place] injection 4 12-15 IV Push, ity of mg 03:15: 02:17 ONCE, 1 [place] 00 :00 dose, [facility] Medical 12/14/20 at Branch 2215, STAT aspirin 2020- No 325mg 325 mg, Unive rs tablet 325 12-15 Oral, ity of mg 01:00: 23:49 ONCE, 1 [place] 00 :00 dose, [facility] Medical 12/14/20 at Branch 2000, STAT ondansetron 2020- No 4mg 4 mg, Slow Univers (ZOFRAN 12-15 IV Push, ity of (PF)) 00:45: 23:48 ONCE, 1 [place] injection 4 00 :00 dose, [facility] Med ical mg 12/14/20 at [place] 1945, PIERRE morpHINE 2020- No 4mg 4 mg, Slow [place] injection 4 12-15 IV Push, ity of mg 00:45: 23:48 ONCE, 1 [place] 00 :00 dose, [facility] 12/14/20 at Branch 1945, STAT No known No Univers medications 12-14 ity of 18:38: [place] [address] Medical Branch barium 2020- No [id number] 680g 680 g, Uni vers sulfate 10-28 Oral, ity of (LIQUID E-Z 17:15: 14:15 ONCE, 1 Khan[place] VELA) 60 % 00 :00 dose, Wed Med ical (w/v) oral 10/28/20 at [facility] suspension 1215, 680 g Routine sod 2020- No [id number] 1{packe 1 Packet, [facility] bicarb-citr 10-28 t} Oral, ity of ic 17:15: 14:15 ONCE, 1 [place] ac-simeth 00 :00 dose, Wed Medic al (E-Z-GAS 10/28/20 at Branch II) 1215, 2.21-1.53 Routine gram/4 gram packet 1 Packet HUMULIN N Yes INJECT 14 Uni vers NPH U-100 5-22 UNITS ity of INSULIN 100 00:00: [facility] [place] unit/mL 00 USLY AT Medical injection BEDTIME [place] HUMULIN N Yes INJECT 14 Uni vers NPH U-100 5-22 UNITS ity of INSULIN 100 00:00: SUBCUTANEO [place] unit/mL 00 USLY AT Medical injection BEDTIME Branch HUMULIN N 2020- Yes INJECT 14 Uni vers NPH U-100 5-22 UNITS ity of INSULIN 100 00:00: SUBCUTANEO [place] unit/mL 00 USLY AT Medical injection BEDTIME Branch HUMULIN N 2020-0 Yes INJECT 14 Uni vers NPH U-100 5-22 UNITS ity of INSULIN 100 00:00: SUBCUTANEO [place] unit/mL 00 USLY AT Medical injection BEDTIME Branch HUMULIN N 2020- Yes INJECT 14 Uni vers NPH U-100 5-22 UNITS ity of INSULIN 100 00:00: SUBCUTANEO [place] unit/mL 00 USLY AT Medical injection BEDTIME Branch ketorolac 2020- No 30mg 30 mg, Unive rs (TORADOL) 09-29 Slow IV ity of injection 02:15: 01:15 Push, [place] 30 mg 00 :00 ONCE, 1 Medical dose, [facility] 09/28/20 at 2115, Routine
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 09/28/20 at 1930, STAT ondansetron 2020- No 4mg 4 mg, Slow Univers (ZOFRAN 09-29 IV Push, ity of (PF)) 00:30: 23:33 ONCE, 1 [place] injection 4 00 :00 dose, Mon Med ical mg 09/28/20 at Branch 1930, PIERRE morpHINE 2020- No 4mg 4 mg, Slow [place] injection 4 09-29 IV Push, ity of mg 00:30: 23:35 ONCE, 1 [place] 00 :00 dose, Mon Medical 09/28/20 at [place] 1930, STAT maalox:diph 2020- No 15mL 15 mL, Uni vers enhydrAMINE 09-29-10 Oral, ity of :lidocaine 00:30: 23:34 ONCE, 1 [place] 2 % viscous 00 :00 dose, Mon Med ical 1:1:1 09/28/20 at [place] (FIRST-MOUT 1930, HWASH BLM) Routine oral suspension 15 mL pantoprazol 2020- No 40mg 40 mg, IV Univers e 09-29-10 Piggyback, ity of (PROTONIX) 00:30: 23:54 ONCE, 1 [place] 40 mg in 00 :00 dose, Mon Medica l NaCl 0.9% 09/28/20 at [facility] (NS) 100 mL 1929, 100 MINI-BAG mL NaCl 0.9% 2020- No 1000mL at 999 Uni vers (NS) bolus 09-28 05-11 mL/hr, ity of infusion 23:30: 00:40 1,000 mL, [place] 1,000 mL 00 :00 IV Medical Infusion, [place] ONCE, 1 dose, [facility] 09/28/20 at 1830, PIERRE ondansetron 2020- Yes 4mg Take 1 Univers 4 mg 5-10 tablet by ity of disintegrat 00:00: mouth [place] ing tablet 00 every 8 Medica l (eight) Branch hours as needed for Nausea and Vomiting (N/V). ondansetron 2020-0 Yes [id number] 4mg Take 1 Univers 4 mg 5-10 tablet by ity of disintegrat 00:00: mouth [place] ing tablet 00 every 8 Medica l (eight) Branch hours as needed for Nausea and Vomiting (N/V). ondansetron 2020-0 Yes [id number] 4mg Take 1 Univers 4 mg 5-10 tablet by ity of disintegrat 00:00: mouth [place] ing tablet 00 every 8 Medica l (eight) Branch hours as needed for Nausea and Vomiting (N/V). ondansetron 2020-0 Yes [id number] 4mg Take 1 Univers 4 mg 5-10 tablet by ity of disintegrat 00:00: mouth [place] ing tablet 00 every 8 Medica l (eight) Branch hours as needed for Nausea and Vomiting (N/V). ondansetron 2020-0 Yes [id number] 4mg Take 1 Univers 4 mg 5-10 tablet by ity of disintegrat 00:00: mouth [place] ing tablet 00 every 8 Medica l (eight) Branch hours as needed for Nausea and Vomiting (N/V). ondansetron 2020-0 Yes [id number] 4mg Take 1 Univers 4 mg 5-10 tablet by ity of disintegrat 00:00: mouth [place] ing tablet 00 every 8 Medica l (eight) Branch hours as needed for Nausea and Vomiting (N/V). ondansetron 2020-0 Yes [id number] 4mg Take 1 Univers 4 mg 5-10 tablet by ity of disintegrat 00:00: mouth [place] ing tablet 00 every 8 Medica l (eight) Branch hours as needed for Nausea and Vomiting (N/V). ondansetron 2020-0 Yes [id number] 4mg Take 1 Univers 4 mg 5-10 tablet by ity of disintegrat 00:00: mouth [place] ing tablet 00 every 8 Medica l (eight) Branch hours as needed for Nausea and Vomiting (N/V). ondansetron 2020-0 Yes [id number] 4mg Take 1 Univers 4 mg 5-10 tablet by ity of disintegrat 00:00: mouth [place] ing tablet 00 every 8 Medica l (eight) Branch hours as needed for Nausea and Vomiting (N/V). ondansetron 2020-0 Yes [id number] 4mg Take 1 Univers 4 mg 5-10 tablet by ity of disintegrat 00:00: mouth [place] ing tablet 00 every 8 Medica l (eight) Branch hours as needed for Nausea and Vomiting (N/V). ondansetron 2020-0 Yes [id number] 4mg Take 1 Univers 4 mg 5-10 tablet by ity of disintegrat 00:00: mouth [place] ing tablet 00 every 8 Medica l (eight) Branch hours as needed for Nausea and Vomiting (N/V). ondansetron 2020-0 Yes [id number] 4mg Take 1 Univers 4 mg 5-10 tablet by ity of disintegrat 00:00: mouth [place] ing tablet 00 every 8 Medica l (eight) Branch hours as needed for Nausea and Vomiting (N/V). ondansetron Yes [id number] 4mg Take 1 Univers 4 mg 5-10 tablet by ity of disintegrat 00:00: mouth [place] ing tablet 00 every 8 Medica l (eight) Branch hours as needed for Nausea and Vomiting (N/V). ondansetron Yes [id number] 4mg Take 1 Univers 4 mg 5-10 tablet by ity of disintegrat 00:00: mouth [place] ing tablet 00 every 8 Medica l (eight) Branch hours as needed for Nausea and Vomiting (N/V). pantoprazol No [id number] 40mg Take 1 Univers e 40 mg EC 5-10 06-10 tablet by ity of tablet 00:00: 04:59 mouth [place] 00 :00 daily for Medical 30 days. [place] pantoprazol No [id number] 40mg Take 1 Univers e 40 mg EC 5-10 06-10 tablet by ity of tablet 00:00: 04:59 mouth [place] 00 :00 daily for Medical 30 days. [place] pantoprazol No [id number] 40mg Take 1 Univers e 40 mg EC 5-10 06-10 tablet by ity of tablet 00:00: 04:59 mouth [place] 00 :00 daily for Medical 30 days. Branch pantoprazol 2020- No [id number] 40mg Take 1 Univers e 40 mg EC 5-10 06-10 tablet by ity of tablet 00:00: 04:59 mouth [place] 00 :00 daily for Medical 30 days. [place] pantoprazol 2020- No [id number] 40mg Take 1 Univers e 40 mg EC 5-10 06-10 tablet by ity of tablet 00:00: 04:59 mouth [place] 00 :00 daily for Medical 30 days. Branch pantoprazol 2020- No [id number] 40mg Take 1 Univers e 40 mg EC 5-10 06-10 tablet by ity of tablet 00:00: 04:59 mouth [place] 00 :00 daily for Medical 30 days. [place] pantoprazol 2020- No [id number] 40mg Take 1 Univers e 40 mg EC 5-10 06-10 tablet by ity of tablet 00:00: 04:59 mouth [place] 00 :00 daily for Medical 30 days. Branch pantoprazol 2020- No [id number] 40mg Take 1 Univers e 40 mg EC 09-28-10 tablet by ity of tablet 00:00: 04:59 mouth [place] 00 :00 daily for Medical 30 days. [place] dicyclomine 2020- No [id number] 20mg Take 1 Univers 20 mg 5-10 05-18 tablet by ity of tablet 00:00: 04:59 mouth 4 [place] 00 :00 (four) Medical times [place] daily for 7 days. aspirin 81 2020- No [id number] 81mg Take 1 Univers mg chewable 09-27 tablet by it y of tablet 00:00: 04:59 mouth [place] 00 :00 daily for Medical 30 days. Branch metoprolol 2020- No [id number] 12.5mg Take 0.5 Univers succinate 09-27 tablets by ity of XL 25 mg 24 00:00: 04:59 mouth [place] hr tablet 00 :00 daily for Medic al 30 days. Branch spironolact No [id number] 25mg Take 1 Univers one 25 mg 09-27 tablet by ity of tablet 00:00: 04:59 mouth [place] 00 :00 daily for Medical 30 days. Branch aspirin 81 2020- No [id number] 81mg Take 1 Univers mg chewable 09-27 tablet by it y of tablet 00:00: 04:59 mouth [place] 00 :00 daily for Medical 30 days. Branch metoprolol 2020- No [id number] 12.5mg Take 0.5 Univers succinate 09-27- tablets by ity of XL 25 mg 24 00:00: 04:59 mouth [place] hr tablet 00 :00 daily for Medic al 30 days. Branch spironolact 2020- No [id number] 25mg Take 1 Univers one 25 mg 09-27 tablet by ity of tablet 00:00: 04:59 mouth [place] 00 :00 daily for Medical 30 days. Branch aspirin 81 2020- No [id number] 81mg Take 1 Univers mg chewable 09-27- tablet by it y of tablet 00:00: 04:59 mouth [place] 00 :00 daily for Medical 30 days. Branch metoprolol 2020- No [id number] 12.5mg Take 0.5 Univers succinate -01 25- tablets by ity of XL 25 mg 24 00:00: 04:59 mouth [place] hr tablet 00 :00 daily for Medic al 30 days. [place] spironolact 2020- No [id number] 25mg Take 1 Univers one 25 mg 09-27- tablet by ity of tablet 00:00: 04:59 mouth [place] 00 :00 daily for Medical 30 days. Branch aspirin 81 2020- No [id number] 81mg Take 1 Univers mg chewable 09-27- tablet by it y of tablet 00:00: 04:59 mouth [place] 00 :00 daily for Medical 30 days. Branch metoprolol 2020- No [id number] 12.5mg Take 0.5 Univers succinate 09-27- tablets by ity of XL 25 mg 24 00:00: 04:59 mouth [place] hr tablet 00 :00 daily for Medic al 30 days. [place] spironolact 2020- No [id number] 25mg Take 1 Univers one 25 mg 09-27 tablet by ity of tablet 00:00: 04:59 mouth [place] 00 :00 daily for Medical 30 days. Robert aspirin 81 2020- No [id number] 81mg Take 1 Univers mg chewable 09-27- tablet by it y of tablet 00:00: 04:59 mouth [place] 00 :00 daily for Medical 30 days. Branch metoprolol 2020- No [id number] 12.5mg Take 0.5 Univers succinate 09-27- tablets by ity of XL 25 mg 24 00:00: 04:59 mouth [place] hr tablet 00 :00 daily for Medic al 30 days. Branch spironolact 2020- No [id number] 25mg Take 1 Univers one 25 mg 09-27- tablet by ity of tablet 00:00: 04:59 mouth [place] 00 :00 daily for Medical 30 days. Branch aspirin 81 2020- No [id number] 81mg Take 1 Univers mg chewable 5-10-28 tablet by it y of tablet 00:00: 04:59 mouth [place] 00 :00 daily for Medical 30 days. Branch metoprolol 2020- No [id number] 12.5mg Take 0.5 Univers succinate 09-27- tablets by ity of XL 25 mg 24 00:00: 04:59 mouth [place] hr tablet 00 :00 daily for Medic al 30 days. Branch spironolact 2020- No [id number] 25mg Take 1 Univers one 25 mg 09-27 tablet by ity of tablet 00:00: 04:59 mouth [place] 00 :00 daily for Medical 30 days. Branch aspirin 81 2020- No [id number] 81mg Take 1 Univers mg chewable 09-27 tablet by it y of tablet 00:00: 04:59 mouth [place] 00 :00 daily for Medical 30 days. Branch metoprolol 2020- No [id number] 12.5mg Take 0.5 Univers succinate 09-27 tablets by ity of XL 25 mg 24 00:00: 04:59 mouth [place] hr tablet 00 :00 daily for Medic al 30 days. Branch spironolact 2020- No [id number] 25mg Take 1 Univers one 25 mg 09-27 tablet by ity of tablet 00:00: 04:59 mouth [place] 00 :00 daily for Medical 30 days. Branch aspirin 81 2020- No [id number] 81mg Take 1 Univers mg chewable 09-27 tablet by it y of tablet 00:00: 04:59 mouth [place] 00 :00 daily for Medical 30 days. Branch metoprolol 2020- No [id number] 12.5mg Take 0.5 Univers succinate 09-27 tablets by ity of XL 25 mg 24 00:00: 04:59 mouth [place] hr tablet 00 :00 daily for Medic al 30 days. Branch spironolact 2020- No [id number] 25mg Take 1 Univers one 25 mg 09-27 tablet by ity of tablet 00:00: 04:59 mouth [place] 00 :00 daily for Medical 30 days. Branch aspirin 81 2020- No [id number] 81mg Take 1 Univers mg chewable 09-27 tablet by it y of tablet 00:00: 04:59 mouth [place] 00 :00 daily for Medical 30 days. Branch metoprolol 2020- No [id number] 12.5mg Take 0.5 Univers succinate 09-27 tablets by ity of XL 25 mg 24 00:00: 04:59 mouth [place] hr tablet 00 :00 daily for Medic al 30 days. Branch spironolact 2020- No [id number] 25mg Take 1 Univers one 25 mg [...] 40mg Take 40 mg Univers 40 mg 5 05-08 by mouth ity of tablet 20:49: 00:00 at [place] 55 :00 bedtime. Medical Branch omeprazole 2020- No 20mg Take 20 mg Univers 20 mg -08 05-08 by mouth ity of capsule 20:49: 00:00 daily. [place] 55 :00 Medical Branch metformin 2020- No [...] 2020- No 2{puff} Inhale 2 Univers 90 - 05-08 Puffs 2 ity of mcg/actuati 20:49: 00:00 (two) [place] on inhaler 55 :00 times Medical daily. Branch lisinopriL 2020- No 2.5mg Take 2.5 U nivers 2.5 mg 5-08 05-08 mg by ity of tablet 20:49: 00:00 mouth [place] 55 :00 daily. Medical Branch metoprolol 2020- No 25mg Take 25 mg Univers succinate -08 05-08 by mouth ity o f XL 25 mg 24 20:49: 00:00 daily. [place] J as [place] tablet 55 :00 Medical Branch atorvastati 2020- No 40mg Take 40 mg Univers n 40 mg 5-08 05-08 by mouth ity of tablet 20:49: 00:00 at [place] 55 :00 bedtime. Medical Branch cyclobenzap 2020-0 2020- No 10mg Take 10 mg Univers rine 10 mg 5-08 05-08 by mouth 2 it y of tablet 20:49: 00:00 (two) [place] 55 :00 times Medical daily as Branch needed for Muscle Spasms. aspirin Yes 81mg 81 mg, Univers chewable 5-08 Oral, ity of tablet 81 14:00: DAILY, [place] mg 00 First dose Medical on Sat Branch 09/26/20 at 0900, Until Discontinu ed, Routine furosemide Yes [id number] 40mg Take 1 Univers 40 mg 5-08 tablet by ity of tablet 00:00: mouth [place] 00 every Medical morning Branch and evening. cyclobenzap 2020- Yes [id number] 10mg Take 1 Univers rine 10 mg 5-08 tablet by ity of tablet 00:00: mouth 2 [place] (two) Medical times [place] daily as needed for Muscle Spasms. albuterol Yes [id number] 2{puff} Inhale 2 Univers 90 5-08 Puffs 2 ity of mcg/actuati 00:00: (two) [place] on inhaler 00 times Medical daily. Branch apixaban 5 0 Yes 1358 5mg Take 1 Unive rs mg tablet 5-08 tablet by ity o f 00:00: mouth 2 [place] (two) Medical times Branch daily. Indication s: atrial fibrillati on furosemide 2020- Yes [id number] 40mg Take 1 Univers 40 mg 5-08 tablet by ity of tablet 00:00: mouth [place] 00 every Medical morning Branch and evening. cyclobenzap 2020- Yes [id number] 10mg Take 1 Univers rine 10 mg 5-08 tablet by ity of tablet 00:00: mouth 2 [place] 00 (two) Medical times Branch daily as needed for Muscle Spasms. albuterol 2020- Yes [id number] 2{puff} Inhale 2 Univers 90 5-08 Puffs 2 ity of mcg/actuati 00:00: (two) [place] on inhaler 00 times Medical daily. Branch apixaban 5 2020-0 Yes 1358 5mg Take 1 Unive rs mg tablet 5-08 tablet by ity o f 00:00: mouth 2 (two) Medical times Branch daily. Indication s: atrial fibrillati on furosemide 2020-0 Yes [id number] 40mg Take 1 Univers 40 mg 5-08 tablet by ity of tablet 00:00: mouth [place] 00 every Medical morning Branch and evening. cyclobenzap 2020- Yes [id number] 10mg Take 1 Univers rine 10 mg 5-08 tablet by ity of tablet 00:00: mouth 2 (two) Medical times Branch daily as needed for Muscle Spasms. albuterol 2020-0 Yes [id number] 2{puff} Inhale 2 Univers 90 5-08 Puffs 2 ity of mcg/actuati 00:00: (two) [place] on inhaler 00 times Medical daily. Branch apixaban 5 Yes 1358 5mg Take 1 Unive rs mg tablet 5-08 tablet by ity o f 00:00: mouth 2 (two) Medical times Branch daily. Indication s: atrial fibrillati on furosemide 0 Yes [id number] 40mg Take 1 Univers 40 mg 5-08 tablet by ity of tablet 00:00: mouth [place] 00 every Medical morning Branch and evening. cyclobenzap 2020- Yes [id number] 10mg Take 1 Univers rine 10 mg 5-08 tablet by ity of tablet 00:00: mouth 2 (two) Medical times Branch daily as needed for Muscle Spasms. albuterol 2020-0 Yes [id number] 2{puff} Inhale 2 Univers 90 5-08 Puffs 2 ity of mcg/actuati 00:00: (two) [place] on inhaler 00 times Medical daily. Branch apixaban 5 2020-0 Yes 1358 5mg Take 1 Unive rs mg tablet 5-08 tablet by ity o f 00:00: mouth 2 [place] (two) Medical times Branch daily. Indication s: atrial fibrillati on furosemide 2020-0 Yes [id number] 40mg Take 1 Univers 40 mg 5-08 tablet by ity of tablet 00:00: mouth [place] 00 every Medical morning Branch and evening. cyclobenzap 2021-0 Yes [id number] 10mg Take 1 Univers rine 10 mg 5-08 tablet by ity of tablet 00:00: mouth 2 (two) Medical times Branch daily as needed for Muscle Spasms. albuterol 0 Yes [id number] 2{puff} Inhale 2 Univers 90 5-08 Puffs 2 ity of mcg/actuati 00:00: (two) [place] on inhaler 00 times Medical daily. Branch apixaban 5 0 Yes 1358 5mg Take 1 Unive rs mg tablet 5-08 tablet by ity o f 00:00: mouth 2 (two) Medical times Branch daily. Indication s: atrial fibrillati on furosemide Yes [id number] 40mg Take 1 Univers 40 mg 5-08 tablet by ity of tablet 00:00: mouth 00 every Medical morning Branch and evening. cyclobenzap 2020- Yes [id number] 10mg Take 1 Univers rine 10 mg 5-08 tablet by ity of tablet 00:00: mouth [place] (two) Medical times Branch daily as needed for Muscle Spasms. albuterol Yes [id number] 2{puff} Inhale 2 Univers 90 5-08 Puffs 2 ity of mcg/actuati 00:00: (two) [place] on inhaler 00 times Medical daily. Branch apixaban 5 0 Yes 1358 5mg Take 1 Unive rs mg tablet 5-08 tablet by ity o f 00:00: mouth 2 (two) Medical times Branch daily. Indication s: atrial fibrillati on furosemide 2020-0 Yes [id number] 40mg Take 1 Univers 40 mg 5-08 tablet by ity of tablet 00:00: mouth [place] 00 every Medical morning Branch and evening. cyclobenzap 2020- Yes [id number] 10mg Take 1 Univers rine 10 mg 5-08 tablet by ity of tablet 00:00: mouth 2 (two) Medical times Branch daily as needed for Muscle Spasms. albuterol 2020-0 Yes [id number] 2{puff} Inhale 2 Univers 90 5-08 Puffs 2 ity of mcg/actuati 00:00: (two) [place] on inhaler 00 times Medical daily. Branch apixaban 5 2020-0 Yes 1358 5mg Take 1 Unive rs mg tablet 5-08 tablet by ity o f 00:00: mouth 2 [place] 00 (two) Medical times Branch daily. Indication s: atrial fibrillati on furosemide 2020-0 Yes [id number] 40mg Take 1 Univers 40 mg 5-08 tablet by ity of tablet 00:00: mouth [place] 00 every Medical morning Branch and evening. cyclobenzap 2020-0 Yes [id number] 10mg Take 1 [facility] rine 10 mg 5-08 tablet by ity of tablet 00:00: mouth 2 [place] 00 (two) Medical times Branch daily as needed for Muscle Spasms. albuterol 2020-0 Yes [id number] 2{puff} Inhale 2 [facility] 90 5-08 Puffs 2 ity of mcg/actuati 00:00: (two) [place] on inhaler 00 times Medical daily. Branch apixaban 5 2020-0 Yes 1358 5mg Take 1 [facility] rs mg tablet 5-08 tablet by ity o f 00:00: mouth 2 (two) Medical times Branch daily. Indication s: atrial fibrillati on furosemide 2020-0 Yes [id number] 40mg Take 1 [facility] 40 mg 5-08 tablet by ity of tablet 00:00: mouth [place] 00 every Medical morning Branch and evening. cyclobenzap 2020-0 Yes [id number] 10mg Take 1 [facility] rine 10 mg 5-08 tablet by ity of tablet 00:00: mouth 2 (two) Medical times Branch daily as needed for Muscle Spasms. albuterol 2020-0 Yes [id number] 2{puff} Inhale 2 [facility] 90 5-08 Puffs 2 ity of mcg/actuati 00:00: (two) [place] on inhaler 00 times Medical daily. Branch apixaban 5 2020-0 Yes 1358 5mg Take 1 [facility] rs mg tablet 5-08 tablet by ity o f 00:00: mouth 2 [place] 00 (two) Medical times Branch daily. Indication s: atrial fibrillati on furosemide 2020-0 Yes [id number] 40mg Take 1 [facility] 40 mg 5-08 tablet by ity of tablet 00:00: mouth [place] 00 every Medical morning Branch and evening. cyclobenzap 2020-0 Yes [id number] 10mg Take 1 [facility] rine 10 mg 5-08 tablet by ity of tablet 00:00: mouth 2 (two) Medical times Branch daily as needed for Muscle Spasms. albuterol Yes [id number] 2{puff} Inhale 2 [facility] 90 5-08 Puffs 2 ity of mcg/actuati 00:00: (two) [place] on inhaler 00 times Medical daily. Branch apixaban 5 0 Yes 1358 5mg Take 1 [facility] rs mg tablet 5-08 tablet by ity o f 00:00: mouth 2 (two) Medical times Branch daily. Indication s: atrial fibrillati on furosemide Yes [id number] 40mg Take 1 [facility] 40 mg 5-08 tablet by ity of tablet 00:00: mouth [place] 00 every Medical morning Branch and evening. cyclobenzap Yes [id number] 10mg Take 1 [facility] rine 10 mg 5-08 tablet by ity of tablet 00:00: mouth 2 (two) Medical times Branch daily as needed for Muscle Spasms. albuterol Yes [id number] 2{puff} Inhale 2 [facility] 90 5-08 Puffs 2 ity of mcg/actuati 00:00: (two) [place] on inhaler 00 times Medical daily. Branch apixaban 5 Yes 1358 5mg Take 1 [facility] rs mg tablet 5-08 tablet by ity o f 00:00: mouth 2 (two) Medical times Branch daily. Indication s: atrial fibrillati on furosemide 2020-0 Yes [id number] 40mg Take 1 [facility] 40 mg 5-08 tablet by ity of tablet 00:00: mouth [place] 00 every Medical morning Branch and evening. cyclobenzap 2020- Yes [id number] 10mg Take 1 [facility] rine 10 mg 5-08 tablet by ity of tablet 00:00: mouth 2 (two) Medical times Branch daily as needed for Muscle Spasms. albuterol Yes [id number] 2{puff} Inhale 2 [facility] 90 5-08 Puffs 2 ity of mcg/actuati 00:00: (two) [place] on inhaler 00 times Medical daily. Branch apixaban 5 2020-0 Yes 1358 5mg Take 1 [facility] rs mg tablet 5-08 tablet by ity o f 00:00: mouth 2 (two) Medical times Branch daily. Indication s: atrial fibrillati on furosemide 2020-0 Yes [id number] 40mg Take 1 [facility] 40 mg 5-08 tablet by ity of tablet 00:00: mouth [place] 00 every Medical morning Branch and evening. cyclobenzap 2020-0 Yes [id number] 10mg Take 1 [facility] rine 10 mg 5-08 tablet by ity of tablet 00:00: mouth (two) Medical times Branch daily as needed for Muscle Spasms. albuterol 2020-0 Yes [id number] 2{puff} Inhale 2 [facility] 90 5-08 Puffs 2 ity of mcg/actuati 00:00: (two) [place] on inhaler 00 times Medical daily. Branch apixaban 5 2020-0 Yes 1358 5mg Take 1 [facility] rs mg tablet 5-08 tablet by ity o f 00:00: mouth (two) Medical times Branch daily. Indication s: atrial fibrillati on furosemide 2020-0 Yes [id number] 40mg Take 1 [facility] 40 mg 5-08 tablet by ity of tablet 00:00: mouth 00 every Medical morning Branch and evening. cyclobenzap 2020-0 Yes [id number] 10mg Take 1 [facility] rine 10 mg 5-08 tablet by ity of tablet 00:00: mouth (two) Medical times Branch daily as needed for Muscle Spasms. albuterol 2020-0 Yes [id number] 2{puff} Inhale 2 [facility] 90 5-08 Puffs 2 ity of mcg/actuati 00:00: (two) [place] on inhaler 00 times Medical daily. Branch apixaban 5 2020-0 Yes 1358 5mg Take 1 [facility] rs mg tablet 5-08 tablet by ity o f 00:00: mouth (two) Medical times Branch daily. Indication s: atrial fibrillati on furosemide 2020-0 Yes [id number] 40mg Take 1 [facility] 40 mg 5-08 tablet by ity of tablet 00:00: mouth 00 every Medical morning Branch and evening. cyclobenzap 2020-0 Yes [id number] 10mg Take 1 [facility] rine 10 mg 5-08 tablet by ity of tablet 00:00: mouth (two) Medical times Branch daily as needed for Muscle Spasms. albuterol Yes [id number] 2{puff} Inhale 2 [facility] 90 5-08 Puffs 2 ity of mcg/actuati 00:00: (two) [place] on inhaler 00 times Medical daily. Branch apixaban 5 Yes 1358 5mg Take 1 [facility] rs mg tablet 5-08 tablet by ity o f 00:00: mouth 2 [place] 00 (two) Medical times Branch daily. Indication s: atrial fibrillati on furosemide Yes [id number] 40mg Take 1 [facility] 40 mg 5-08 tablet by ity of tablet 00:00: mouth [place] 00 every Medical morning Branch and evening. cyclobenzap Yes [id number] 10mg Take 1 [facility] rine 10 mg 5-08 tablet by ity of tablet 00:00: mouth 2 [place] 00 (two) Medical times Branch daily as needed for Muscle Spasms. albuterol Yes [id number] 2{puff} Inhale 2 [facility] 90 5-08 Puffs 2 ity of mcg/actuati 00:00: (two) [place] on inhaler 00 times Medical daily. Branch apixaban 5 Yes 1358 5mg Take 1 [facility] rs mg tablet 5-08 tablet by ity o f 00:00: mouth 2 [place] 00 (two) Medical times Branch daily. Indication s: atrial fibrillati on docusate 2020- No [id number] 100mg Take 1 [facility] 100 mg 5-08 06-08 capsule by ity of capsule 00:00: 04:59 mouth 2 [place] 00 :00 (two) Medical times Branch daily for 30 days. gabapentin 2020- No 989 800mg Take 1 [facility] vers 800 mg 5-08 06-08 tablet by ity of tablet 00:00: 04:59 mouth 3 [place] 00 :00 (three) Medical times Branch daily for 30 days. Indication s: weakness, numbness or pain from nerve damage atorvastati 2020- No [id number] 40mg Take 1 [facility] n 40 mg 5-08 06-08 tablet by ity of tablet 00:00: 04:59 mouth at [place] 00 :00 bedtime Medical for 30 Branch days. levothyroxi 2020- No [id number] 50ug Take 1 [facility] ne 50 mcg 5-12 25-08 tablet by ity of tablet 00:00: 04:59 mouth [place] 00 :00 every Medical morning Branch for 30 days. lisinopriL 2020- No [id number] 2.5mg Take 1 [facility] 2.5 mg 5- 06-08 tablet by ity of tablet 00:00: 04:59 mouth [place] 00 :00 daily for Medical 30 days. Branch metformin 2020- No [id number] 500mg Take 1 [facility] ER 500 mg 5- 06-08 tablet by ity of 24 hr 00:00: 04:59 mouth [place] tablet 00 :00 daily with Medical breakfast Branch for 30 days. omeprazole 2020- No [id number] 20mg Take 1 [facility] 20 mg -12 25-08 capsule by ity of capsule 00:00: 04:59 mouth [place] 00 :00 daily for Medical 30 days. Branch simvastatin 2020- No [id number] 40mg Take 1 [facility] 40 mg 5-12 25-08 tablet by ity of tablet 00:00: 04:59 mouth at [place] 00 :00 bedtime Medical for 30 Branch days. sennosides 2020- No [id number] 8.6mg Take 1 [facility] 8.6 mg -12 25-08 tablet by ity of tablet 00:00: 04:59 mouth 2 [place] 00 :00 (two) Medical times Branch daily for 30 days. tamsulosin 2020- No [id number] .4mg Take 1 [facility] 0.4 mg 24 09-26-08 capsule by ity of hr capsule 00:00: 04:59 mouth 2 [place] 00 :00 (two) Medical times Branch daily for 30 days. venlafaxine 2020- No [id number] 75mg Take 1 [facility] 75 mg 5-08 06-08 tablet by ity of tablet 00:00: 04:59 mouth 2 [place] 00 :00 (two) Medical times Branch daily for 30 days. docusate 2020- No [id number] 100mg Take 1 [facility] 100 mg 5-12 [...] pain from nerve damage atorvastati 2020- No [id number] 40mg Take 1 [facility] n 40 mg 09-26-08 tablet by ity of tablet 00:00: 04:59 mouth at [place] 00 :00 bedtime Medical for 30 Branch days. levothyroxi 2020- No [id number] 50ug Take 1 [facility] ne 50 mcg 09-26-08 tablet by ity of tablet 00:00: 04:59 mouth [place] 00 :00 every Medical morning Branch for 30 days. lisinopriL 2020- No [id number] 2.5mg Take 1 [facility] 2.5 mg 09-26-08 tablet by ity of tablet 00:00: 04:59 mouth [place] 00 :00 daily for Medical 30 days. Branch metformin 2020- No [id number] 500mg Take 1 [facility] ER 500 mg 09-26-08 tablet by ity of 24 hr 00:00: 04:59 mouth [place] tablet 00 :00 daily with Medical breakfast Branch for 30 days. omeprazole 2020- No [id number] 20mg Take 1 [facility] 20 mg 09-26-08 capsule by ity of capsule 00:00: 04:59 mouth [place] 00 :00 daily for Medical 30 days. Branch simvastatin 2020- No [id number] 40mg Take 1 [facility] 40 mg 09-26-08 tablet by ity of tablet 00:00: 04:59 mouth at [place] 00 :00 bedtime Medical for 30 Branch days. sennosides 2020- No [id number] 8.6mg Take 1 [facility] 8.6 mg 09-26-08 tablet by ity of tablet 00:00: 04:59 mouth 2 [place] 00 :00 (two) Medical times Branch daily for 30 days. tamsulosin 2020- No [id number] .4mg Take 1 [facility] 0.4 mg 24 09-26-08 capsule by ity of hr capsule 00:00: 04:59 mouth 2 [place] 00 :00 (two) Medical times Branch daily for 30 days. venlafaxine 2020- No [id number] 75mg Take 1 [facility] 75 mg 09-26-08 tablet by ity of tablet 00:00: 04:59 mouth 2 [place] 00 :00 (two) Medical times Branch daily for 30 days. docusate 2020- No [id number] 100mg Take 1 [facility] 100 mg 09-26-08 [...] pain from nerve damage atorvastati 2020- No [id number] 40mg Take 1 [facility] n 40 mg 09-26-08 tablet by ity of tablet 00:00: 04:59 mouth at [place] 00 :00 bedtime Medical for 30 Branch days. levothyroxi 2020- No [id number] 50ug Take 1 [facility] ne 50 mcg 09-26-08 tablet by ity of tablet 00:00: 04:59 mouth [place] 00 :00 every Medical morning Branch for 30 days. lisinopriL 2020- No [id number] 2.5mg Take 1 [facility] 2.5 mg 09-26-08 tablet by ity of tablet 00:00: 04:59 mouth [place] 00 :00 daily for Medical 30 days. Branch metformin 2020- No [id number] 500mg Take 1 [facility] ER 500 mg 09-26-08 tablet by ity of 24 hr 00:00: 04:59 mouth [place] tablet 00 :00 daily with Medical breakfast Branch for 30 days. omeprazole 2020- No [id number] 20mg Take 1 [facility] 20 mg 09-26-08 capsule by ity of capsule 00:00: 04:59 mouth [place] 00 :00 daily for Medical 30 days. Branch simvastatin 2020- No [id number] 40mg Take 1 [facility] 40 mg 09-26-08 tablet by ity of tablet 00:00: 04:59 mouth at [place] 00 :00 bedtime Medical for 30 Branch days. sennosides 2020- No [id number] 8.6mg Take 1 [facility] 8.6 mg 09-26-08 tablet by ity of tablet 00:00: 04:59 mouth 2 [place] 00 :00 (two) Medical times Branch daily for 30 days. tamsulosin 2020- No [id number] .4mg Take 1 [facility] 0.4 mg 24 09-26- capsule by ity of hr capsule 00:00: 04:59 mouth 2 [place] 00 :00 (two) Medical times Branch daily for 30 days. venlafaxine 2020- No [id number] 75mg Take 1 [facility] 75 mg 09-26-08 tablet by ity of tablet 00:00: 04:59 mouth 2 [place] 00 :00 (two) Medical times Branch daily for 30 days. docusate 2020- No [id number] 100mg Take 1 [facility] 100 mg 09-26- capsule by ity of capsule 00:00: 04:59 [...] pain from nerve damage atorvastati 2020- No [id number] 40mg Take 1 [facility] n 40 mg 09-26-08 tablet by ity of tablet 00:00: 04:59 mouth at [place] 00 :00 bedtime Medical for 30 Branch days. levothyroxi 2020- No [id number] 50ug Take 1 [facility] ne 50 mcg 09-26-08 tablet by ity of tablet 00:00: 04:59 mouth [place] 00 :00 every Medical morning Branch for 30 days. lisinopriL 2020- No [id number] 2.5mg Take 1 [facility] 2.5 mg 5-08 06-08 tablet by ity of tablet 00:00: 04:59 mouth [place] 00 :00 daily for Medical 30 days. Branch metformin 2020- No [id number] 500mg Take 1 [facility] ER 500 mg 5-08 06-08 tablet by ity of 24 hr 00:00: 04:59 mouth [place] tablet 00 :00 daily with Medical breakfast Branch for 30 days. omeprazole 2020- No [id number] 20mg Take 1 [facility] 20 mg 5- 06-08 capsule by ity of capsule 00:00: 04:59 mouth [place] 00 :00 daily for Medical 30 days. Branch simvastatin 2020- No [id number] 40mg Take 1 [facility] 40 mg 5- 06-08 tablet by ity of tablet 00:00: 04:59 mouth at [place] 00 :00 bedtime Medical for 30 Branch days. sennosides 2020- No [id number] 8.6mg Take 1 [facility] 8.6 mg 5- 06-08 tablet by ity of tablet 00:00: 04:59 mouth 2 [place] 00 :00 (two) Medical times Branch daily for 30 days. tamsulosin 2020- No [id number] .4mg Take 1 [facility] 0.4 mg 24 -12 25-08 capsule by ity of hr capsule 00:00: 04:59 mouth 2 [place] 00 :00 (two) Medical times Branch daily for 30 days. venlafaxine 2020- No [id number] 75mg Take 1 [facility] 75 mg 5- 06-08 tablet by ity of tablet 00:00: 04:59 mouth 2 [place] 00 :00 (two) Medical times Branch daily for 30 days. docusate 2020- No [id number] 100mg Take 1 [facility] 100 mg 5-08 [...] pain from nerve damage atorvastati 2020- No [id number] 40mg Take 1 [facility] n 40 mg 5-12 25-08 tablet by ity of tablet 00:00: 04:59 mouth at [place] 00 :00 bedtime Medical for 30 Branch days. levothyroxi 2020- No [id number] 50ug Take 1 [facility] ne 50 mcg 09-26-08 tablet by ity of tablet 00:00: 04:59 mouth [place] 00 :00 every Medical morning Branch for 30 days. lisinopriL 2020- No [id number] 2.5mg Take 1 [facility] 2.5 mg 09-26-08 tablet by ity of tablet 00:00: 04:59 mouth [place] 00 :00 daily for Medical 30 days. Branch metformin 2020- No [id number] 500mg Take 1 [facility] ER 500 mg 09-26-08 tablet by ity of 24 hr 00:00: 04:59 mouth [place] tablet 00 :00 daily with Medical breakfast Branch for 30 days. omeprazole 2020- No [id number] 20mg Take 1 [facility] 20 mg 09-26-08 capsule by ity of capsule 00:00: 04:59 mouth [place] 00 :00 daily for Medical 30 days. Branch simvastatin 2020- No [id number] 40mg Take 1 [facility] 40 mg 09-26-08 tablet by ity of tablet 00:00: 04:59 mouth at [place] 00 :00 bedtime Medical for 30 Branch days. sennosides 2020- No [id number] 8.6mg Take 1 [facility] 8.6 mg -12 25-08 tablet by ity of tablet 00:00: 04:59 mouth 2 [place] 00 :00 (two) Medical times Branch daily for 30 days. tamsulosin 2020- No [id number] .4mg Take 1 [facility] 0.4 mg 24 09-26-08 capsule by ity of hr capsule 00:00: 04:59 mouth 2 [place] 00 :00 (two) Medical times [place] daily for 30 days. venlafaxine 2020- No [id number] 75mg Take 1 [facility] 75 mg 5-08 06-08 tablet by ity of tablet 00:00: 04:59 mouth 2 [place] 00 :00 (two) Medical times Branch daily for 30 days. docusate 2020- No [id number] 100mg Take 1 [facility] 100 mg 09-26-08 [...] pain from nerve damage atorvastati 2020- No [id number] 40mg Take 1 [facility] n 40 mg 09-26-08 tablet by ity of tablet 00:00: 04:59 mouth at [place] 00 :00 bedtime Medical for 30 Branch days. levothyroxi 2020- No [id number] 50ug Take 1 [facility] ne 50 mcg 09-26-08 tablet by ity of tablet 00:00: 04:59 mouth [place] 00 :00 every Medical morning Branch for 30 days. lisinopriL 2020- No [id number] 2.5mg Take 1 [facility] 2.5 mg 09-26-08 tablet by ity of tablet 00:00: 04:59 mouth [place] 00 :00 daily for Medical 30 days. Branch metformin 2020- No [id number] 500mg Take 1 [facility] ER 500 mg 09-26-08 tablet by ity of 24 hr 00:00: 04:59 mouth [place] tablet 00 :00 daily with Medical breakfast Branch for 30 days. omeprazole 2020- No [id number] 20mg Take 1 [facility] 20 mg -12 25-08 capsule by ity of capsule 00:00: 04:59 mouth [place] 00 :00 daily for Medical 30 days. Branch simvastatin 2020- No [id number] 40mg Take 1 [facility] 40 mg 5-12 25-08 tablet by ity of tablet 00:00: 04:59 mouth at [place] 00 :00 bedtime Medical for 30 Branch days. sennosides 2020- No [id number] 8.6mg Take 1 [facility] 8.6 mg -12 25-08 tablet by ity of tablet 00:00: 04:59 mouth 2 [place] 00 :00 (two) Medical times Branch daily for 30 days. tamsulosin 2020- No [id number] .4mg Take 1 [facility] 0.4 mg 24 09-26-08 capsule by ity of hr capsule 00:00: 04:59 mouth 2 [place] 00 :00 (two) Medical times Branch daily for 30 days. venlafaxine 2020- No [id number] 75mg Take 1 [facility] 75 mg 09-26-08 tablet by ity of tablet 00:00: 04:59 mouth 2 [place] 00 :00 (two) Medical times Branch daily for 30 days. docusate 2020- No [id number] 100mg Take 1 [facility] 100 mg 09-26-08 [...] pain from nerve damage atorvastati 2020- No [id number] 40mg Take 1 [facility] n 40 mg 09-26-08 tablet by ity of tablet 00:00: 04:59 mouth at [place] 00 :00 bedtime Medical for 30 Branch days. levothyroxi 2020- No [id number] 50ug Take 1 [facility] ne 50 mcg 09-26-08 tablet by ity of tablet 00:00: 04:59 mouth [place] 00 :00 every Medical morning Branch for 30 days. lisinopriL 2020- No [id number] 2.5mg Take 1 [facility] 2.5 mg 09-26-08 tablet by ity of tablet 00:00: 04:59 mouth [place] 00 :00 daily for Medical 30 days. Branch metformin 2020- No [id number] 500mg Take 1 [facility] ER 500 mg 09-26-08 tablet by ity of 24 hr 00:00: 04:59 mouth [place] tablet 00 :00 daily with Medical breakfast Branch for 30 days. omeprazole 2020- No [id number] 20mg Take 1 [facility] 20 mg 5-08 06-08 capsule by ity of capsule 00:00: 04:59 mouth [place] 00 :00 daily for Medical 30 days. Branch simvastatin 2020- No [id number] 40mg Take 1 [facility] 40 mg 5-08 06-08 tablet by ity of tablet 00:00: 04:59 mouth at [place] 00 :00 bedtime Medical for 30 Branch days. sennosides 2020- No [id number] 8.6mg Take 1 [facility] 8.6 mg 5-08 06-08 tablet by ity of tablet 00:00: 04:59 mouth 2 [place] 00 :00 (two) Medical times Branch daily for 30 days. tamsulosin 2020- No [id number] .4mg Take 1 [facility] 0.4 mg 24 5- 06-08 capsule by ity of hr capsule 00:00: 04:59 mouth 2 [place] 00 :00 (two) Medical times Branch daily for 30 days. venlafaxine 2020- No [id number] 75mg Take 1 [facility] 75 mg 5-08 06-08 tablet by ity of tablet 00:00: 04:59 mouth 2 [place] 00 :00 (two) Medical times Branch daily for 30 days. docusate 2020- No [id number] 100mg Take 1 [facility] 100 mg 5-08 [...] pain from nerve damage atorvastati 2020- No [id number] 40mg Take 1 [facility] n 40 mg 5-08 06-08 tablet by ity of tablet 00:00: 04:59 mouth at [place] 00 :00 bedtime Medical for 30 Branch days. levothyroxi 2020- No [id number] 50ug Take 1 [facility] ne 50 mcg 5-12 25-08 tablet by ity of tablet 00:00: 04:59 mouth [place] 00 :00 every Medical morning Branch for 30 days. lisinopriL 2020- No [id number] 2.5mg Take 1 [facility] 2.5 mg 5-12 25-08 tablet by ity of tablet 00:00: 04:59 mouth [place] 00 :00 daily for Medical 30 days. Branch metformin 2020- No [id number] 500mg Take 1 [facility] ER 500 mg 5-12 25-08 tablet by ity of 24 hr 00:00: 04:59 mouth [place] tablet 00 :00 daily with Medical breakfast Branch for 30 days. omeprazole 2020- No [id number] 20mg Take 1 [facility] 20 mg 09-26-08 capsule by ity of capsule 00:00: 04:59 mouth [place] 00 :00 daily for Medical 30 days. Branch simvastatin 2020- No [id number] 40mg Take 1 [facility] 40 mg -12 25-08 tablet by ity of tablet 00:00: 04:59 mouth at [place] 00 :00 bedtime Medical for 30 Branch days. sennosides 2020- No [id number] 8.6mg Take 1 [facility] 8.6 mg 09-26-08 tablet by ity of tablet 00:00: 04:59 mouth 2 [place] 00 :00 (two) Medical times Branch daily for 30 days. tamsulosin 2020- No [id number] .4mg Take 1 [facility] 0.4 mg 24 09-26-08 capsule by ity of hr capsule 00:00: 04:59 mouth 2 [place] 00 :00 (two) Medical times Branch daily for 30 days. venlafaxine 2020- No [id number] 75mg Take 1 [facility] 75 mg 5-08 -08 tablet by ity of tablet 00:00: 04:59 mouth 2 [place] 00 :00 (two) Medical times Branch daily for 30 days. docusate 2020- No [id number] 100mg Take 1 [facility] 100 mg 5-12 [...] pain from nerve damage atorvastati 2020- No [id number] 40mg Take 1 [facility] n 40 mg 09-26-08 tablet by ity of tablet 00:00: 04:59 mouth at [place] 00 :00 bedtime Medical for 30 Branch days. levothyroxi 2020- No [id number] 50ug Take 1 [facility] ne 50 mcg 09-26-08 tablet by ity of tablet 00:00: 04:59 mouth [place] 00 :00 every Medical morning Branch for 30 days. lisinopriL 2020- No [id number] 2.5mg Take 1 [facility] 2.5 mg 09-26-08 tablet by ity of tablet 00:00: 04:59 mouth [place] 00 :00 daily for Medical 30 days. Branch metformin 2020- No [id number] 500mg Take 1 [facility] ER 500 mg 09-26-08 tablet by ity of 24 hr 00:00: 04:59 mouth [place] tablet 00 :00 daily with Medical breakfast Branch for 30 days. omeprazole 2020- No [id number] 20mg Take 1 [facility] 20 mg 09-26-08 capsule by ity of capsule 00:00: 04:59 mouth [place] 00 :00 daily for Medical 30 days. Branch simvastatin 2020- No [id number] 40mg Take 1 [facility] 40 mg 09-26-08 tablet by ity of tablet 00:00: 04:59 mouth at [place] 00 :00 bedtime Medical for 30 Branch days. sennosides 2020- No [id number] 8.6mg Take 1 [facility] 8.6 mg 09-26-08 tablet by ity of tablet 00:00: 04:59 mouth 2 [place] 00 :00 (two) Medical times Branch daily for 30 days. tamsulosin 2020- No [id number] .4mg Take 1 [facility] 0.4 mg 24 09-26-08 capsule by ity of hr capsule 00:00: 04:59 mouth 2 [place] 00 :00 (two) Medical times [place] daily for 30 days. venlafaxine 2020- No [id number] 75mg Take 1 [facility] 75 mg 09-26- tablet by ity of tablet 00:00: 04:59 mouth 2 [place] 00 :00 (two) Medical times [place] daily for 30 days. atorvastati Yes 40mg 40 mg, Univ ers n (LIPITOR) 507 Oral, QHS, it y of tablet 40 02:00: First dose [place] mg 00 on [facility] 09/24/20 at Branch 2100, Until Discontinu ed, Routine spironolact Yes 25mg 25 mg, Univ ers one - Oral, ity of (ALDACTONE) 14:00: DAILY, [place] tablet 25 00 First dose Medi uriel mg on [facility] 09/24/20 at 0900, Until Discontinu ed, Routine metoprolol Yes 12.5mg 12.5 mg, U nivers succinate 09-24 Oral, ity of XL (TOPROL 14:00: DAILY, [place] XL) tablet 00 First dose Med ical 12.5 mg on [facility] 09/24/20 at 0900, Until Discontinu ed, Routine venlafaxine Yes 75mg 75 mg, Univ ers (EFFEXOR) - Oral, BID, ity of tablet 75 13:00: First dose [place] mg 00 on [facility] 09/24/20 at Branch 0800, Until Discontinu ed, Routine tamsulosin Yes .4mg 0.4 mg, Univ ers (FLOMAX) - Oral, BID, ity o f capsule 0.4 13:00: First dose [place] mg 00 on [facility] 09/24/20 at Branch 0800, Until Discontinu ed, Routine gabapentin Yes 989 800mg 800 mg, Uni vers (NEURONTIN) 09-24 Oral, TID, it y of tablet 800 13:00: First dose [place] mg 00 on [facility] 09/24/20 at Branch 0800, Until Discontinu ed, Routine apixaban Yes 1358 5mg 5 mg, Univers (ELIQUIS) 06 Oral, BID, ity of tablet 5 mg 13:00: First dose [place] 00 on [facility] 09/24/20 at Branch 0800, Until Discontinu ed, Routine Sliding Yes Subcutaneo Univ ers Scale 5-06 us, TID ity of Insulin - 13:00: MEALS, [place] Lispro 00 First dose Medical (HumaLOG) + on [facility] 09/24/20 at Testing 0800, Until Discontinu ed, Routine insulin NPH 2020- No 7U 7 Units, U nivers and regular 09-24 05-08 Subcutaneo i ty of human 70-30 12:30: 12:30 , BIDAC, [place] (HUMULIN 00 :54 First dose Medic al 70-30 U-100 on [facility] INSULIN) 09/24/20 at 100 unit/mL 0730, (70-30) Until injection 7 Discontinu Units ed, Routine glipiZIDE No 5mg 5 mg, Univer s (GLUCOTROL) 09-24-08 Oral, ity of tablet 5 mg 12:30: 08:26 BIDAC, [place] 00 :38 First dose Medical on [facility] Branch 09/24/20 at 0730, Until Discontinu ed, Routine levothyroxi Yes 50ug 50 mcg, Uni vers ne 09-24 Oral, ity of (SYNTHROID) 11:00: QAM-0600, [place] tablet 50 00 First dose Medi uriel mcg on [facility] Branch 09/24/20 at 0600, Until Discontinu ed, Routine furosemide Yes 40mg 40 mg, IV Un [place] (LASIX) 5 Push, Q8H, ity of injection 11:00: First dose [place] 40 mg 00 (after Medical last Branch reorder) on [facility] 09/24/20 at 0600, Until Discontinu ed, PIERRE morpHINE 2020- No 2mg 2 mg, Slow [facility] [place] injection 2 09-24-06 IV Push, ity of mg 10:30: 09:22 ONCE, 1 [place] 00 :00 dose, [facility] 09/24/20 at Branch 0530, Routine morpHINE 2021-0 Yes 1mg 1 mg, Slow Uni vers injection 1 09-24 IV Push, ity of mg 10:17: Q4HPRN, [place] 07 Starting Medical [facility] 09/24/20 Branch at 0517, Until Discontinu ed, Routine, Pain (scale 7-10) traMADoL No 50mg 50 mg, Univer s (ULTRAM) 09-24 05-06 Oral, ity of tablet 50 06:15: 05:15 ONCE, 1 [place] mg 00 :00 dose, [facility] 09/24/20 at Branch 0115, Routine sennosides Yes 8.6mg 8.6 mg, Uni vers (SENOKOT) - Oral, BID, ity of tablet 8.6 01:45: First dose [place] mg 00 on [facility] 09/23/20 at Branch 2044, Until Discontinu ed, Routine docusate Yes 100mg 100 mg, Unive rs (COLACE) 09-24 Oral, BID, ity o f capsule 100 01:45: First dose [place] mg 00 on [facility] 09/23/20 at Branch 2044, Until Discontinu ed, Routine ondansetron Yes 4mg 4 mg, Slow Univers (ZOFRAN 09-24 IV Push, ity of (PF)) 01:35: Q6HPRN, [place] injection 4 33 Starting Medi uriel mg [facility] 09/23/20 Branch at 2034, Until Discontinu ed, [...] 25 mL, Univ ers % in water 5 Slow IV ity of (D50W) 01:34: Push, PRN, [place] injection 10 Starting Medica l 25 mL [facility] 09/23/20 Branch at 2033, Until Discontinu ed, PIERRE, Blood Glucose < or = 70 mg/dL and patient is unable to swallow or has mental status changes. furosemide No 40mg 40 mg, IV U nivers (LASIX) 09-24- Push, ity of injection 00:15: 23:20 ONCE, 1 [place] 40 mg 00 :00 dose, [facility] 09/23/20 at Branch 1915, PIERRE FENTanyl PF 2020- No 75ug 75 mcg, Un [place] (SUBLIMAZE 09-24 Slow IV ity o f (PF)) 00:00: 22:52 Push, [place] injection 00 :00 ONCE, 1 Medical 75 mcg dose, [facility] 09/23/20 at 1900, STAT iohexol 2020- No [id number] 120mL 120 mL, U nivers (OMNIPAQUE 09-23 Intravenou it y of 350 22:00: 21:38 s, ONCE, 1 [place] BULK-100 00 :00 dose, [facility] Medica l mL) 09/23/20 at [place] injection 1700, 120 mL Routine polyethylen Yes 17g 17 g, Unive rs e glycol 4-20 Oral, ity of 3350 powder 14:00: DAILY, [place] 17 g 00 First dose Medical on [facility] 09/08/20 at 0900, Until Discontinu ed, Routine simvastatin Yes 40mg Take 40 mg Univers 40 mg 4-20 by mouth ity of tablet 11:05: at [place] [address] bedtime. Medical Branch omeprazole Yes 20mg Take 20 mg U nivers 20 mg 4-20 by mouth ity of capsule 11:05: daily. [place] [address] Medical Branch metformin 2020-0 Yes 750mg Take 750 Uni vers ER 750 mg 4-20 mg by ity of 24 hr 11:05: mouth [place] tablet 01 daily with Medical breakfast. Branch gabapentin Yes 989 600mg Take 600 [place] 600 mg 4-20 mg by ity of tablet 11:05: mouth 3 [place] (three) Medical times Branch daily. Indication s: weakness, numbness or pain from nerve damage albuterol Yes 2{puff} Inhale 2 U nivers 90 4-20 Puffs 2 ity of mcg/actuati 11:05: (two) [place] on inhaler times Medical daily. Branch simvastatin Yes 40mg Take 40 mg Univers 40 mg 4-20 by mouth ity of tablet 11:05: at [place] bedtime. Medical Branch omeprazole Yes 20mg Take 20 mg U nivers 20 mg 4-20 by mouth ity of capsule 11:05: daily. [place] Medical Branch metformin Yes 750mg Take 750 Uni vers ER 750 mg 4-20 mg by ity of 24 hr 11:05: mouth [place] tablet daily with Medical breakfast. Branch gabapentin Yes 989 600mg Take 600 [place] 600 mg 4-20 mg by ity of tablet 11:05: mouth 3 (three) Medical times Branch daily. Indication s: weakness, numbness or pain from nerve damage albuterol Yes 2{puff} Inhale 2 U nivers 90 4-20 Puffs 2 ity of mcg/actuati 11:05: (two) [place] on inhaler times Medical daily. Branch levoFLOXaci Yes [id number] 500mg Take 1 Univers n 500 mg 4-19 tablet by ity of tablet 00:00: mouth [place] 00 every 24 Medical (twenty-fo Branch ur) hours. levoFLOXaci Yes [id number] 500mg Take 1 Univers n 500 mg 4-19 tablet by ity of tablet 00:00: mouth [place] 00 every 24 Medical (twenty-fo Branch ur) hours. levoFLOXaci 2020- No [id number] 500mg Take 1 Univers n 500 mg 4-19 05-08 tablet by ity o f tablet 00:00: 00:00 mouth [place] 00 :00 every 24 Medical (twenty-fo Branch ur) hours. levoFLOXaci Yes 500mg 500 mg, Un [place]ley n 4-18 Oral, Q24H ity of (LEVAQUIN) 21:15: ABX, First [place] tablet 500 00 dose on Medica l mg [place] Branch 09/06/20 at 1615, Until Discontinu ed, PIERRE
Re ason for Anti-Infec tive: Documented Infection< br>Documen ludmila Infection Site: Urine
D uration of Therapy: 7 days simvastatin Yes 40mg 40 mg, Univ ers (ZOCOR) 4-16 Oral, QHS, ity of tablet 40 02:00: First dose [place] mg 00 on [facility] 09/03/20 at Branch 2100, Until Discontinu ed, Routine morpHINE 0 Yes 2mg 2 mg, Slow Uni vers injection 2 4-15 IV Push, ity of mg 21:40: Q4HPRN, [place] 30 Starting Medical [facility] Branch 09/03/20 at 1640, Until Discontinu ed, Routine, Pain (scale 7-10) HYDROcodone 2020-0 Yes 1{tbl} 1 tablet, Univers -acetaminop 4-15 Oral, ity of hen (NORCO) 21:40: Q4HPRN, [place] as 10-325 mg 18 Starting Medica l tablet 1 [facility] tablet 09/03/20 at 1640, Until Discontinu ed, Routine, Pain (scale 4-6) acetaminoph 2020-0 Yes 650mg 650 mg, Un charley en 4-15 Oral, ity of (TYLENOL) 21:40: Q4HPRN, [place] tablet 650 00 Starting Medic al mg [facility] 09/03/20 at 1640, Until Discontinu ed, Routine, Pain (scale 1-3) ceFEPIme 2020-0 2020- No 2000mg 2,000 mg, U nivers (MAXIPIME) 4-15 04-18 IV ity of 2,000 mg in 19:15: 20:05 [place], [place] NaCl 0.9% 00 :31 Q8H ABX, Medica l (NS) 100 mL First dose Br anch MINI-BAG (after last modificati on) on [facility] 09/03/20 at 1415, Until Discontinu ed, 100 mL
Reas on for Anti-Infec tive: Empiric Therapy for Suspected Infection< br>Empiric Therapy Site: Other
O ther site: unknown
Duration of therapy: 7 days omeprazole 0 Yes 20mg 20 mg, Unive rs (PRILOSEC) 4-15 Oral, ity of capsule 20 14:00: DAILY, [place] mg 00 First dose Medical on [facility] Branch 09/03/20 at 0900, Until Discontinu ed, Routine glipiZIDE 0 Yes 5mg 5 mg, Univers (GLUCOTROL) 4-15 Oral, ity of tablet 5 mg 14:00: DAILY, [place] 00 First dose Medical on [facility] 09/03/20 at 0900, Until Discontinu ed, Routine aspirin 2020-0 Yes 81mg 81 mg, Univers chewable 4-15 Oral, ity of tablet 81 14:00: DAILY, [place] mg 00 First dose Medical on [facility] 09/03/20 at 0900, Until Discontinu ed, Routine venlafaxine 2020-0 Yes 75mg 75 mg, Univ ers (EFFEXOR) 4-15 Oral, BID, ity of tablet 75 13:00: First dose [place] mg 00 on [facility] 09/03/20 at Branch 0800, Until Discontinu ed, Routine tamsulosin 2020-0 Yes .4mg 0.4 mg, Univ ers (FLOMAX) 4-15 Oral, BID, ity o f capsule 0.4 13:00: First dose [place] mg 00 on [facility] 09/03/20 at Branch 0800, Until Discontinu ed, Routine metFORMIN 0 Yes 750mg 750 mg, Univ ers (GLUCOPHAGE 4-15 Oral, BID ity of ) tablet 13:00: MEALS, [place] 750 mg 00 First dose Medical on [facility] 09/03/20 at 0800, Until Discontinu ed gabapentin 2020-0 Yes 989 600mg 600 mg, Uni vers (NEURONTIN) 4-15 Oral, TID, it y of tablet 600 13:00: First dose [place] mg 00 on [facility] 09/03/20 at Branch 0800, Until Discontinu ed, Routine apixaban 0 Yes 1358 5mg 5 mg, Univers (ELIQUIS) 4-15 Oral, BID, ity of tablet 5 mg 13:00: First dose [place] 00 on [facility] 09/03/20 at Branch 0800, Until Discontinu ed, Routine levothyroxi 2020-0 Yes 50ug 50 mcg, Uni vers ne 4-15 Oral, ity of (SYNTHROID) 11:00: QAM-0600, [place] tablet 50 00 First dose Medi uriel mcg on [facility] 09/03/20 at 0600, Until Discontinu ed, Routine ceFEPIme 2020-0 2021- No 1000mg 1,000 mg, U nivers (MAXIPIME) 4-15 04-15 IV ity of 1,000 mg in 03:15: 16:39 [place], [place] NaCl 0.9% 00 :01 Q8H ABX, Medica l (NS) 50 mL First dose [facility] MINI-BAG on Mon09/02/20 at 2215, Until Discontinu ed, 50 mL
R debbie for Anti-Infec tive: Empiric Therapy for Suspected Infection< br>Empiric Therapy Site: Other
O ther site: unknown
Duration of therapy: 7 days ondansetron Yes 4mg 4 mg, Slow Univers (ZOFRAN 4-15 IV Push, ity of (PF)) 02:10: Q6HPN, [place] injection 4 13 Starting Medi uriel mg Wed Branch 09/02/20 at 2110, Until Discontinu ed, Routine, Nausea and Vomiting (N/V) cefTRIAXone 2020- No 1000mg 1,000 mg, Univers (ROCEPHIN) 09-03-15 IV ity of 1,000 mg in 01:45: 02:06 [place], [place] NaCl 0.9% 00 :26 ONCE, 1 Medical (NS) 50 mL dose, Wed [facility] MINI-BAG 09/02/20 at 2045, 50 mL
Reas [...] IV Medical Infusion, Branch ONCE, 1 dose, 09/02/20 at 1830, [place]ER[place] NaCl 0.9% 2020- No 1000mL at 999 Uni vers (NS) bolus 4-14 04-15 mL/hr, ity of infusion 23:15: 02:05 1,000 mL, [place] 1,000 mL 00 :00 IV Medical Infusion, Branch ONCE, 1 dose, Mon09/02/20 at 1815, PIERRE NaCl 0.9% 0 2020- No 1000mL at 999 Uni vers (NS) bolus 4-14 04-14 mL/hr, ity of infusion 23:15: 22:52 1,000 mL, [place] 1,000 mL 00 :00 IV Medical Infusion, Branch ONCE, 1 dose, Mon09/02/20 at 1815, STAT gabapentin 2020-0 Yes 989 600mg Take 600 [place] 600 mg 4-07 mg by ity of tablet 16:04: mouth 3 [place] 20 (three) Medical times Branch daily. Indication s: weakness, numbness or pain from nerve damage gabapentin 2020-0 Yes 989 600mg Take 600 [place] 600 mg 4-07 mg by ity of tablet 16:04: mouth 3 [place] 20 (three) Medical times Branch daily. Indication s: weakness, numbness or pain from nerve damage gabapentin 2020-0 Yes 989 600mg Take 600 [place] 600 mg 4-07 mg by ity of tablet 16:04: mouth 3 [place] 20 (three) Medical times Branch daily. Indication s: weakness, numbness or pain from nerve damage gabapentin 2020-0 Yes 989 600mg Take 600 [place] 600 mg 4-07 mg by ity of tablet 16:04: mouth 3 [place] 20 (three) Medical times Branch daily. Indication [...] 08 daily with Medical breakfast. Branch omeprazole Yes 20mg Take 20 mg U nivers 20 mg 4-07 by mouth ity of capsule 16:02: daily. [address] omeprazole 0 Yes 20mg Take 20 mg U nivers 20 mg 4-07 by mouth ity of capsule 16:02: daily. [address] omeprazole 0 Yes 20mg Take 20 mg U nivers 20 mg 4-07 by mouth ity of capsule 16:02: daily. [address] omeprazole 0 Yes 20mg Take 20 mg U nivers 20 mg 4-07 by mouth ity of capsule 16:02: daily. [address] tamsulosin 2020- No [id number] .4mg Take 1 Univers 0.4 mg 24 08-26 capsule by ity of hr capsule 00:00: 04:59 mouth 2 [place] 00 :00 (two) Medical times [place] daily for 90 days. tamsulosin 2020- No [id number] .4mg Take 1 Univers 0.4 mg 24 08-26- capsule by ity of hr capsule 00:00: 04:59 mouth 2 [place] 00 :00 (two) Medical times [place] daily for 90 days. tamsulosin 2020-2020- No [id number] .4mg Take 1 Univers 0.4 mg 24 08-26- capsule by ity of hr capsule 00:00: 04:59 mouth 2 [place] 00 :00 (two) Medical times [place] daily for 90 days. tamsulosin 2020- No [id number] .4mg Take 1 Univers 0.4 mg 24 08-26- capsule by ity of hr capsule 00:00: 04:59 mouth 2 [place] 00 :00 (two) Medical times [place] daily for 90 days. tamsulosin 2020-2020- No [id number] .4mg Take 1 Univers 0.4 mg 24 08-26-08 capsule by ity of hr capsule 00:00: 00:00 mouth 2 [place] as 00 :00 (two) Medical times [place] daily for 90 days. cefdinir 2020-0 Yes Univers 300 mg 05 ity of capsule 00:00: [place] 00 Medical Branch cefdinir 0 Yes Univers 300 mg 4-05 ity of capsule 00:00: [place] 00 Medical Branch cefdinir 2020-0 2020- No Univers 300 mg 4-05 - ity of capsule 00:00: 00:00 [place] 00 :00 Medical Branch lisinopriL 2020-0 Yes Univers 2.5 mg 4-02 ity of tablet 00:00: [place] 00 Medical Branch lisinopriL 2020-0 Yes Univers 2.5 mg 4-02 ity of tablet 00:00: [place] 00 Medical Branch lisinopriL 2020-0 2020- No Univer s 2.5 mg 4-06 25- ity of tablet 00:00: 00:00 [place] 00 :00 Medical Branch simvastatin Yes 40mg Take 40 mg Univers 40 mg 3-18 by mouth ity of tablet 22:18: at [place] [address] bedtime. Medical Branch omeprazole Yes 20mg Take 20 mg U nivers 20 mg 3-18 by mouth ity of capsule 22:18: daily. [place] [address] Medical Branch metformin 0 Yes 750mg Take 750 Uni vers ER 750 mg 3-18 mg by ity of 24 hr 22:18: mouth [place] tablet 47 daily with Medical breakfast. Branch gabapentin 0 Yes 989 600mg Take 600 Un [place] 600 mg 3-18 mg by ity of tablet 22:18: mouth 3 [place] [address] (three) Medical times Branch daily. Indication s: weakness, numbness or pain from nerve damage simvastatin Yes 40mg Take 40 mg Univers 40 mg 3-18 by mouth ity of tablet 22:18: at [place] [address] bedtime. Medical Branch simvastatin Yes 40mg Take 40 mg Univers 40 mg 3-18 by mouth ity of tablet 22:18: at [place] [address] bedtime. Medical Branch simvastatin 0 Yes 40mg Take 40 mg Univers 40 mg 3-18 by mouth ity of tablet 22:18: at [place] [address] bedtime. Medical Branch simvastatin 0 Yes 40mg Take 40 mg Univers 40 mg 3-18 by mouth ity of tablet 22:18: at [place] [address] bedtime. Medical Branch HYDROcodone 2020- No 4647 1{tbl} Take 1 U nivers -acetaminop 3-18 - tablet by it y of hen 5-325 00:00: 04:59 mouth [place] mg tablet 00 :00 every 6 Medical (six) Branch hours as needed for Pain (scale 4-6) for up to 7 days. Indication s: acute pain morphine IR 0 2020- No 4647 15mg Take 1 Uni vers 15 mg 08-06 tablet by ity of tablet 00:00: 04:59 mouth [place] 00 :00 every 4 Medical (four) Branch hours as needed for Pain (scale 7-10) for up to 7 days. Indication s: acute pain furosemide Yes 60mg 60 mg, Unive rs (LASIX) 3-16 Oral, ity of tablet 60 22:00: QAM+PM, [place] mg 00 First dose Medical on [facility] 08/04/20 at 1700, Until Discontinu ed, Routine ondansetron Yes 4mg 4 mg, Unive rs (ZOFRAN) 3-16 Oral, ity of tablet 4 mg 15:56: Q6HPRN, [place] 54 Starting Medical [facility] 08/04/20 at 1056, Until Discontinu ed, Routine, Nausea and Vomiting (N/V) morphine IR Yes 15mg 15 mg, Univ ers (MSIR) 3-16 Oral, ity of tablet 15 15:56: Q4HPRN, [place] mg 11 Starting Medical [facility] 08/04/20 at 1056, Until Discontinu ed, Routine, Pain (scale 7-10) furosemide 2020- No 40mg 40 mg, IV U nivers (LASIX) 08-0216 Push, ity of injection 02:00: 15:58 Q12H, [place] 40 mg 00 :17 First dose Medical (after Branch last modificati on) on [facility] 08/01/20 at 2000, Until Discontinu ed, Routine morpHINE 2020- No 4mg 4 mg, Univers injection 4 08-0116 Intravenou i ty of mg 15:15: 15:58 s, Q4HPRN, [place] 00 :17 Starting Medical [facility] 08/01/20 at 0915, Until [facility] 08/04/20 at 1058, Routine, Pain (scale 7-10) furosemide 2020- No 40mg 40 mg, IV U nivers (LASIX) 08-01 Push, ity of injection 15:00: 15:23 DAILY, [place] 40 mg 00 :16 First dose Medical (after Branch last modificati on) on 08/01/20 at 0900, Until Discontinu ed, Routine Polyethylen Yes 17g 17 g, Unive rs e Glycol 3-12 Oral, BID, ity o f 3350 14:00: First dose [place] (MIRALAX) 00 on Mon Medical powder 17 g 07/31/20 at Br anch 0800, Until Discontinu ed, Routine metoprolol Yes 12.5mg 12.5 mg, U nivers tartrate 3-12 Oral, BID, ity o f (LOPRESSOR) 14:00: First dose [place] half tablet 00 on Mon Medica l 12.5 mg 07/31/20 at Branch 0800, Until Discontinu ed, Routine morpHINE No 4mg 4 mg, Univers injection 4 07-31 Intravenou i ty of mg 07:08: 15:02 s, Q6HPRN, [place] 20 :50 Starting Medical Fri Branch 07/31/20 at 0108, Until 08/01/20 at 0902, Routine, Pain (scale 7-10) heparin Yes 1000U/h 1,000 Univer s 25,000 3-12 Units/hr ity of Units/250 07:04: (10 [place] mL 23 mL/hr), IV Medical (Premixed Infusion, [...] e, Dosing and Testing: &nbs p;FOR [facility], AND [facility] ONLY - aPTT < 35: & [...]
HEPARIN 2020- No 4000U 4,000 Univers SODIUM 3-12 03-12 Units, IV ity of (PORCINE) 06:30: 06:54 Push, [place] 1,000 00 :00 ONCE, 1 Medical UNIT/ML dose, Mon [place] BOLUS ACS 07/31/20 at ORDER SET 0030, [...] 40mg 40 mg, IV U nivers (LASIX) 3-10 03-12 Push, Q8H, ity o f injection 04:00: 17:57 First dose [place] 40 mg 00 :02 (after Medical last Branch modificati on) on Mon07/28/20 at 2200, Until Discontinu ed, Routine simvastatin Yes 40mg 40 mg, Univ ers (ZOCOR) 3-10 Oral, QHS, ity of tablet 40 03:00: First dose [place] mg 00 on Mon [facility] 07/28/20 at Branch 2100, Until Discontinu ed, Routine apixaban 2020- No 1358 5mg 5 mg, Univers (ELIQUIS) 07-2912 Oral, BID, ity of tablet 5 mg 00:45: 06:27 First dose [place] 00 :09 (after Medical last Branch modificati on) on [facility] 07/28/20 at 1845, Until Discontinu ed, Routine tamsulosin Yes .4mg 0.4 mg, Univ ers (FLOMAX) 07-28 Oral, ity of capsule 0.4 15:00: DAILY, [place] mg 00 First dose Medical on [facility] 07/28/20 at 0900, Until Discontinu ed, Routine omeprazole Yes 20mg 20 mg, Unive rs (PRILOSEC) 07-28 Oral, ity of capsule 20 15:00: DAILY, [place] mg 00 First dose Medical on [facility] 07/28/20 at 0900, Until Discontinu ed, Routine venlafaxine Yes 75mg 75 mg, Univ ers (EFFEXOR) 07-28 Oral, BID, ity of tablet 75 14:00: First dose [place] mg 00 on [facility] 07/28/20 at Branch 0800, Until Discontinu ed, Routine gabapentin Yes 989 600mg 600 mg, Uni vers (NEURONTIN) 07-28 Oral, TID, it y of tablet 600 14:00: First dose [place] mg 00 on [facility] 07/28/20 at Branch 0800, Until Discontinu ed, Routine enoxaparin 2020- No 1mg/kg 100 mg [place] (LOVENOX) 07-2810 (rounded ity o f injection 14:00: 00:35 from 95.3 [place] 100 mg 00 :14 mg = 1 Medical mg/kg Branch ?95.3 kg), [facility] , Q12H, First dose on [facility] 07/28/20 at 0800, Until Discontinu ed, Routine glipiZIDE 2020- No 5mg 5 mg, Univer s (GLUCOTROL) 07-28-14 Oral, ity of tablet 5 mg 13:30: 13:59 BIDAC, [place] 00 :37 First dose Medical on Mon Branch 07/28/20 at 0730, Until Discontinu ed, Routine levothyroxi Yes 50ug 50 mcg, Uni vers ne 309 Oral, ity of (SYNTHROID) 12:00: QAM-0600, [place] tablet 50 00 First dose Medi uriel mcg on Mon Branch 07/28/20 at 0600, Until Discontinu ed, Routine ondansetron 0 202- No 4mg 4 mg, Slow Univers (ZOFRAN 07-28 03-16 IV Push, ity of (PF)) 05:05: 15:58 Q6HPRN, [place] injection 4 10 :17 Starting Medi uriel mg Mon07/27/20 Branch at 2305, Until Mon08/04/20 at 1058, Routine, Nausea and Vomiting (N/V) HYDROcodone 2020-0 Yes 1{tbl} 1 tablet, Univers -acetaminop 309 Oral, ity of hen (NORCO 05:05: Q6HPRN, [place] 5) 5-325 mg 05 Starting Medi uriel tablet 1 Mon 07/27/20 Branc h tablet at 2305, Until Discontinu ed, Routine, Pain (scale 4-6) acetaminoph 0 Yes 650mg 650 mg, [place] en 09 Oral, ity of (TYLENOL) 05:05: Q6HPRN, [place] tablet 650 03 Starting Medic al mg 07/27/20 Branch at 2305, Until Discontinu ed, Routine, Pain (scale 1-3) nitroglycer 0 Yes .4mg 0.4 mg, Uni vers in 309 Sublingual ity of (NITROSTAT) 04:19: , Q5MIN [place] sublingual 48 PRN, Medical tablet 0.4 Starting Branc h mg 07/27/20 at 2219, Until Discontinu ed, Routine, Chest pain Sliding 0 Yes Subcutaneo Univ ers Scale 3-09 us, AC+HS, ity of Insulin-Reg 03:00: First dose [place] ular + Fsbg 00 on Mon Medica l Testing 07/27/20 at Branch 2100, Until Discontinu ed, Routine furosemide 2020-0 202- No 20mg 20 mg, IV U nivers (LASIX) 07-27-10 Push, Q8H, ity o f injection 22:00: 00:32 First dose [place] 20 mg 00 :14 on [facility] 07/27/20 at Branch 1600, Until Discontinu ed, Routine morpHINE 2020- No 2mg 2 mg, Univers injection 2 07-27 03-12 Intravenou i ty of mg 21:46: 07:08 s, Q6HPRN, [place] 47 :42 Starting [facility] 07/27/20 Branch at 1546, Until Mon07/31/20 at 0108, Routine, Pain (scale 7-10) ondansetron 2020- No 4mg 4 mg, Slow Univers (ZOFRAN 07-2709 IV Push, ity of (PF)) 21:44: 05:05 Q6HPRN, [place] injection 4 34 :39 Starting Medi uriel mg [facility] 07/27/20 Branch at 1544, Until [facility] 07/27/20 at 2305, Routine, Nausea and Vomiting (N/V) sennosides Yes 8.6mg 8.6 mg, Uni vers (SENOKOT) 3-08 Oral, ity of tablet 8.6 21:40: BIDPRN, [place] mg 13 Starting [facility] 07/27/20 [place] at 1540, Until Discontinu ed, Routine, Constipati on morpHINE 2020- No 4mg 4 mg, Slow [place] injection 4 07-27-08 IV Push, ity of mg 19:30: 18:27 ONCE, 1 [place] 00 :00 dose, [facility] 07/27/20 at Branch 1330, Routine simvastatin Yes 40mg Take 40 mg Univers 40 mg 3-02 by mouth ity of tablet 04:47: at [place] [address] bedtime. [facility] Branch omeprazole Yes 20mg Take 20 mg U nivers 20 mg 3-02 by mouth ity of capsule 04:47: daily. [address] metformin Yes 750mg Take 750 Uni vers ER 750 mg 3-02 mg by ity of 24 hr 04:47: mouth [place] tablet 07 daily with Medical breakfast. Branch gabapentin Yes 989 600mg Take 600 [place] 600 mg 3-02 mg by ity of tablet 04:47: mouth 3 [place] (three) Medical times [place] daily. Indication s: weakness, numbness or pain from nerve damage simvastatin Yes 40mg Take 40 mg Univers 40 mg 02 by mouth ity of tablet 04:47: at [place] 07 bedtime. Medical Branch omeprazole Yes 20mg Take 20 mg U nivers 20 mg -02 by mouth ity of capsule 04:47: daily. [place] [address] Medical Branch metformin Yes 750mg Take 750 Uni vers ER 750 mg 3-02 mg by ity of 24 hr 04:47: mouth [place] tablet 07 daily with Medical breakfast. Branch gabapentin Yes 989 600mg Take 600 [place] 600 mg 3-02 mg by ity of tablet 04:47: mouth 3 [place] [address] (three) Medical times [place] daily. Indication s: weakness, numbness or pain from nerve damage iron 2020- No 1000mg 1,000 mg, Unive rs dextran 07-20 IV ity of (INFED) 20:15: 22:21 Infusion, [place] 1,000 mg in 00 :00 ONCE, 1 Medic al NaCl 0.9% dose, [facility] Branc h (NS) 500 mL 07/20/20 at IV infusion 1415, 500 mL iron No 25mg 25 mg, IV Univers dextran [...] mouth ity o f 18:24: 00:00 every [place] 56 :00 evening. Medical Branch sennosides- Yes 1{tbl} 1 tablet, Univers docusate 07-20 Oral, ity of sodium 15:00: DAILY, [place] (SENOKOT-S) 00 First dose Me dical 8.6-50 mg on Mon Branch per tablet 07/20/20 at 1 tablet 0900, Until Discontinu ed, Routine Polyethylen Yes 17g 17 g, Unive rs e Glycol 3-01 Oral, BID, ity o f 3350 02:00: First dose [place] (MIRALAX) 00 (after Medical powder 17 g last Branch modificati on) on 07/19/20 at 1999, Until Discontinu ed, Routine apixaban 5 Yes 1358 5mg Take 1 Unive rs mg tablet 3-01 tablet by ity o f 00:00: mouth 2 [place] 00 (two) Medical times Branch daily. Indication s: atrial fibrillati on povidone-io Yes [id number] Apply to [facility] [place] [facility] 3- 9109 area(s) as ity of (BETADINE) 00:00: needed [place] 10 % 00 (wound Medical solution care). Branch apixaban 5 Yes 1358 5mg Take 1 Unive rs mg tablet 3-01 tablet by ity o f 00:00: mouth 2 [place] 00 (two) Medical times Branch daily. Indication s: atrial fibrillati on povidone-io Yes [id number] Apply to [facility] [place] [facility] 3- 9109 area(s) as ity of (BETADINE) 00:00: needed [place] 10 % 00 (wound Medical solution care). Branch apixaban 5 Yes 1358 5mg Take 1 Unive rs mg tablet 3-01 tablet by ity o f 00:00: mouth 2 [place] 00 (two) Medical times Branch daily. Indication s: atrial fibrillati on povidone-io Yes [id number] Apply to [facility] [place] [facility] 3- 9109 area(s) as ity of (BETADINE) 00:00: needed [place] 10 % 00 (wound Medical solution care). Branch apixaban 5 Yes 1358 5mg Take 1 Unive rs mg tablet 3-01 tablet by ity o f 00:00: mouth 2 [place] 00 (two) Medical times Branch daily. Indication s: atrial fibrillati on povidone-io Yes [id number] Apply to [facility] [place] [facility] 3- [address]109 area(s) as ity of (BETADINE) 00:00: needed [place] 10 % 00 (wound Medical solution care). Branch apixaban 5 2021-0 Yes 1358 5mg Take 1 Unive rs mg tablet 3-01 tablet by ity o f 00:00: mouth 2 [place] 00 (two) Medical times Branch daily. Indication s: atrial fibrillati on povidone-io 2020-0 Yes [id number] Apply to [facility] [place] [facility] 3 91 area(s) as ity of (BETADINE) 00:00: needed [place] 10 % 00 (wound Medical solution care). Branch apixaban 5 Yes 1358 5mg Take 1 Unive rs mg tablet 3-01 tablet by ity o f 00:00: mouth 2 [place] 00 (two) Medical times Branch daily. Indication s: atrial fibrillati on povidone-io Yes [id number] Apply to [facility] [place] [facility] 3 [facility] area(s) as ity of (BETADINE) 00:00: needed [place] 10 % 00 (wound Medical solution care). Branch apixaban 5 Yes 1358 5mg Take 1 Unive rs mg tablet 3-01 tablet by ity o f 00:00: mouth 2 [place] 00 (two) Medical times Branch daily. Indication s: atrial fibrillati on povidone-io Yes [id number] Apply to [facility] [place] [facility] [address] [address] area(s) as ity of (BETADINE) 00:00: needed [place] 10 % 00 (wound Medical solution care). Branch apixaban 5 Yes 1358 5mg Take 1 Unive rs mg tablet 3-01 tablet by ity o f 00:00: mouth 2 [place] 00 (two) Medical times Branch daily. Indication s: atrial fibrillati on povidone-io 2020-0 Yes [id number] Apply to [facility] [place] [facility] 3 [address]109 area(s) as ity of (BETADINE) 00:00: needed [place] 10 % 00 (wound Medical solution care). Branch apixaban 5 Yes 1358 5mg Take 1 Unive rs mg tablet 3-01 tablet by ity o f 00:00: mouth 2 [place] 00 (two) Medical times Branch daily. Indication s: atrial fibrillati on povidone-io 2020-0 Yes [id number] Apply to [facility] [place] [facility] [address] [place] [address] area(s) as ity of (BETADINE) 00:00: needed [place] 10 % 00 (wound Medical solution care). Branch povidone-io 0 Yes [id number] Apply to [place] [address] area(s) as ity of (BETADINE) 00:00: needed [place] 10 % 00 (wound Medical solution care). Branch povidone-io 0 Yes [id number] Apply to [place] [address] area(s) as ity of (BETADINE) 00:00: needed [place] 10 % 00 (wound Medical solution care). Branch povidone-io Yes [id number] Apply to [place] [address] area(s) as ity of (BETADINE) 00:00: needed [place] 10 % 00 (wound Medical solution care). Branch povidone-io Yes [id number] Apply to [place] [address] area(s) as ity of (BETADINE) 00:00: needed [place] 10 % 00 (wound Medical solution care). Branch povidone-io Yes [id number] Apply to [place] [address] area(s) as ity of (BETADINE) 00:00: needed [place] 10 % 00 (wound Medical solution care). Branch povidone-io Yes [id number] Apply to [place] [address] area(s) as ity of (BETADINE) 00:00: needed [place] 10 % 00 (wound Medical solution care). Branch povidone-io Yes [id number] Apply to [place] [address] area(s) as ity of (BETADINE) 00:00: needed [place] 10 % 00 (wound Medical solution care). Branch povidone-io Yes [id number] Apply to [place] [address] area(s) as ity of (BETADINE) 00:00: needed [place] 10 % 00 (wound Medical solution care). Branch povidone-io Yes [id number] Apply to [place] [address] area(s) as ity of (BETADINE) 00:00: needed [place] 10 % 00 (wound Medical solution care). Branch povidone-io Yes [id number] Apply to [facility] [place] [facility] 07-20 9109 area(s) as ity of (BETADINE) 00:00: needed [place] 10 % 00 (wound Medical solution care). Branch povidone-io Yes [id number] Apply to [facility] [place] [facility] 07-20 9109 area(s) as ity of (BETADINE) 00:00: needed [place] 10 % 00 (wound Medical solution care). Branch povidone-io 2020- No [id number] Apply to [facility] [place] [facility] 07-20 9109 area(s) as ity of (BETADINE) [...] 1{tbl} Take 1 U nivers -acetaminop 3-05 24-18 tablet by it y of hen 10-325 [...] 4647 1{tbl} Take 1 U nivers -acetaminop 3- 03-09 tablet by it y of hen 10-325 00:00: 05:59 mouth [place] mg tablet 00 :00 every 6 Medical (six) Branch hours as needed for Pain (scale 4-6) for up to 7 days. Indication s: acute pain magnesium 2020- No 296mL 296 mL, Uni vers citrate 07-19 Oral, ity of solution 16:30: 17:50 ONCE, 1 [place] 296 mL 00 :00 dose, [facility] 07/19/20 at Branch 1030, Routine iohexol 2020- No 120mL 120 mL, Unive rs (OMNIPAQUE 07-18 Intravenou it y of 350 21:15: 21:15 s, ONCE, 1 [place] BULK-150 00 :00 dose, Sat Medica l mL) 07/18/20 at Branch injection 1515, 120 mL Routine Polyethylen 2020- No 17g 17 g, Univ ers e Glycol 07-18 Oral, ity of 3350 15:00: 15:11 DAILY, [place] (MIRALAX) 00 :14 First dose Medi uriel powder 17 g on Sat Branch 07/18/20 at 0900, Until Discontinu ed, Routine HYDROcodone Yes 1{tbl} 1 tablet, Univers -acetaminop 225 Oral, Q6H, it y of hen (NORCO) 00:00: First dose [place] 10-325 mg 00 on Mon Medical tablet 1 07/15/20 at [facility] h tablet 1800, Until Discontinu ed, Routine doxycycline 2020- No 100mg 100 mg, U nivers hyclate 07-16 Oral, ity of (Vibramycin 00:00: 13:05 Q12HA2, [place] ) capsule 00 :18 First dose Medi uriel 100 mg on Wed Branch 07/15/20 at 1800, Until Discontinu ed, PIERRE
Re ason for Anti-Infec tive: Documented Infection< br>Documen lumdila Infection Site: Bone
Du ration of Therapy: 7 days morpHINE 2020- No 4mg 4 mg, Slow Un charley injection 4 07-15 IV Push, ity of mg 18:06: 13:19 Q4HPRN, [place] 03 :01 Starting Medical Wed Branch 07/15/20 at 1206, Until 07/17/20 at 0719, Routine, Pain (scale 7-10) ampicillin- 2020- No 3g 3 g, IV [place] sulbactam 07-15 Piggyback, ity of (UNASYN) 3 06:45: 18:03 Q6H ABX, [place] g in NaCl 00 :37 First dose Medi uriel 0.9% (NS) on Wed Branch 100 mL 07/15/20 at MINI-BAG 0045, [...] IV Medical Infusion, Branch CONTINUOUS , Starting Tu 07/14/20 at 1545, Until 07/18/20 at 0708, Routine morpHINE 2020- No 4mg 4 mg, Slow [place] [facility] injection 4 07-13 IV Push, ity of mg 16:59: 16:58 Q4HPRN, [place] 50 :50 Starting Medical [facility] 07/13/20 at 1059, Until [facility] 07/15/20 at 1058, Routine, Pain (scale 7-10) furosemide 2020- No 40mg 40 mg, Univ ers (LASIX) 07-12 Oral, ity of tablet 40 15:00: 14:27 DAILY, [place] mg 00 :37 First dose Medical (after Branch last modificati on) on [facility] 07/12/20 at 0900, Until Discontinu ed, Routine morpHINE 2020- No 4mg 4 mg, Slow [facility] char[place] injection 4 07-12 IV Push, ity of mg 09:35: 09:34 Q4HPRN, [place] 59 :59 Starting Medical [facility] 07/12/20 at 0335, Until [facility] 07/13/20 at 0334, Routine, Pain (scale 7-10) simvastatin Yes 40mg 40 mg, Univ ers (ZOCOR) 07-12 Oral, QHS, ity of tablet 40 03:00: First dose [place] mg 00 on [facility] 07/11/20 at Branch 2100, Until Discontinu ed, Routine tamsulosin Yes .4mg 0.4 mg, Univ ers (FLOMAX) 2-20 Oral, ity of capsule 0.4 15:00: DAILY, [place] mg 00 First dose Medical on [facility] 07/11/20 at 0900, Until Discontinu ed, Routine omeprazole 0 Yes 20mg 20 mg, Unive rs (PRILOSEC) 2-20 Oral, ity of capsule 20 15:00: DAILY, [place] mg 00 First dose Medical on [facility] Branch 07/11/20 at 0900, Until Discontinu ed, Routine aspirin Yes 81mg 81 mg, Univers chewable 2-20 Oral, ity of tablet 81 15:00: DAILY, [place] mg 00 First dose Medical on [facility] 07/11/20 at 0900, Until Discontinu ed, Routine furosemide 2020- No 40mg 40 mg, Univ ers (LASIX) 2-20 02-20 Oral, ity of tablet 40 15:00: 23:13 QAM+PM, [place] mg 00 :00 First dose Medical on [facility] 07/11/20 at 0900, Until Discontinu ed, Routine enoxaparin 0 Yes 1mg/kg 70 mg Univ ers (LOVENOX) 2-20 (rounded ity of injection 14:00: from 74.8 [place] 70 mg 00 mg = 1 Medical mg/kg Branch ?74.8 kg), Subcutaneo us, Q12H, First dose (after last modificati on) on [facility] 07/11/20 at 0800, Until Discontinu ed, Routine venlafaxine 0 Yes 75mg 75 mg, Univ ers (EFFEXOR) 2-20 Oral, BID, ity of tablet 75 14:00: First dose [place] mg 00 on [facility] 07/11/20 at Branch 0800, Until Discontinu ed, Routine Sliding 2020-0 Yes Subcutaneo Univ ers Scale 2-20 us, AC, ity of Insulin-Reg 13:30: First dose [place] ular + Fsbg 00 on [facility] Medica l Testing 07/11/20 at Branch 0730, Until Discontinu ed, Routine glipiZIDE 2021-0 2021- No 5mg 5 mg, Univer s (GLUCOTROL) 07-11 Oral, ity of tablet 5 mg 13:30: 05:37 BIDAC, [place] 00 :11 First dose Medical on Sat Branch 07/11/20 at 0730, Until Discontinu ed, Routine levothyroxi Yes 50ug 50 mcg, Uni vers ne 07-11 Oral, ity of (SYNTHROID) 12:00: QAM-0600, [place] tablet 50 00 First dose Medi uriel mcg on Sat Branch 07/11/20 at 0600, Until Discontinu ed, Routine gabapentin Yes 989 600mg 600 mg, Uni vers (NEURONTIN) 07-11 Oral, TID, it y of tablet 600 11:00: First dose [place] mg 00 on [facility] Medical 07/11/20 at Branch 0500, Until Discontinu [...] 1,000 mg in 08:00: 18:03 from 1,122 [place] NaCl 0.9% 00 :37 mg = 15 [...] ity of (PF)) 07:45: 06:36 ONCE, 1 [place] injection 4 00 :00 dose, Sat Med ical mg 07/11/20 at Branch 0145, Routine morpHINE 2020-0 2020- No 4mg 4 mg, Slow [facility] char[place] injection 4 07-11-20 IV Push, ity of mg 07:30: 06:36 ONCE, 1 [place] 00 :00 dose, Sat Medical 07/11/20 at Branch 0130, PIERRE glucagon 0 Yes 1mg 1 mg, Univers (GLUCAGEN 2-20 Intramuscu ity of DIAGNOSTIC 07:20: lar, PRN, [place] KIT) 16 Starting Medical injection 1 Sat Branch mg 07/11/20 at 0120, Until Discontinu ed, PIERRE, Blood Glucose < or = 70 mg/dL and patient is unable to swallow or has mental changes. dextrose 50 2020-0 Yes 25mL 25 mL, Univ ers % in water 2-20 Slow IV ity of (D50W) 07:20: Push, PRN, [place] injection 16 Starting Medica l 25 mL Sat Branch 07/11/20 at 0120, Until Discontinu ed, PIERRE, Blood Glucose < or = 70 mg/dL and patient is unable to swallow or has mental status changes. ondansetron 0 Yes 4mg 4 mg, Slow Univers (ZOFRAN 2-20 IV Push, ity of (PF)) 07:19: Q6HPRN, [place] injection 4 59 Starting Medi uriel mg Sat Branch 07/11/20 at 0119, Until Discontinu ed, Routine, Nausea and Vomiting (N/V) morpHINE 2020-0 2020- No 4mg 4 mg, Slow [place] char[place] injection 4 07-11-21 IV Push, ity of mg 07:19: 07:18 Q4HPRN, [place] 50 :50 Starting Medical [facility] Branch 07/11/20 at 0119, Until 07/12/20 at 0118, Routine, Pain (scale 7-10) acetaminoph Yes 650mg 650 mg, Un charley en 2-20 Oral, ity of (TYLENOL) 07:19: Q6HPRN, [place] tablet 650 39 Starting Medic al mg [facility] 07/11/20 at 0119, Until Discontinu ed, Routine, Pain (scale 1-3) FENTanyl PF 2020- No 50ug 50 mcg, Un charley (SUBLIMAZE 2-20 02-20 Slow IV ity o f (PF)) 06:00: 04:58 Push, [place] injection 00 :00 ONCE, 1 Medical 50 mcg dose, [facility] Branch 07/11/20 at 0000, Routine FENTanyl PF 2020-2020- No 50ug 50 mcg, Un charley (SUBLIMAZE 2- 02-20 Slow IV ity o f (PF)) 03:00: 01:54 Push, [place] injection 00 :00 ONCE, 1 Medical 50 mcg dose, [facility] Branch 07/10/20 at 2100, Routine collagenase 0 Yes [id number] Use as Univers 250 2-03 directed ity of unit/gram 00:00: by office [place] J as ointment 00 Medical Branch collagenase 2020-0 Yes [id number] Use as Univers 250 2-03 directed ity of unit/gram 00:00: by office [place] ointment 00 Medical Branch collagenase 2020-0 Yes [id number] Use as Univers 250 2-03 directed ity of unit/gram 00:00: by office [place] ointment 00 Medical Branch collagenase 2020-0 Yes [id number] Use as Univers 250 2-03 directed ity of unit/gram 00:00: by office [place] ointment 00 Medical Branch collagenase 2020-0 Yes [id number] Use as Univers 250 2-03 directed ity of unit/gram 00:00: by office [place] ointment 00 Medical Branch collagenase 2020-0 Yes [id number] Use as Univers 250 2-03 directed ity of unit/gram 00:00: by office [place] ointment 00 Medical Branch collagenase 2020-0 Yes [id number] Use as Univers 250 2-03 directed ity of unit/gram 00:00: by office [place] ointment 00 Medical Branch collagenase 202-0 Yes [id number] Use as Univers 250 2-03 directed ity of unit/gram 00:00: by office [place] ointment Medical Branch collagenase 202-0 Yes [id number] Use as Univers 250 2-03 directed ity of unit/gram 00:00: by office [place] ointment Medical Branch collagenase 2020-0 Yes [id number] Use as Univers 250 2-03 directed ity of unit/gram 00:00: by office [place] ointment 00 Medical Branch collagenase 2020-0 Yes [id number] Use as Univers 250 2-03 directed ity of unit/gram 00:00: by office [place] ointment Medical Branch collagenase 2020-0 Yes [id number] Use as Univers 250 2-03 directed ity of unit/gram 00:00: by office [place] ointment 00 Medical Branch collagenase 2020-0 Yes [id number] Use as Univers 250 2-03 directed ity of unit/gram 00:00: by office [place] ointment 00 Medical Branch collagenase 2020-0 Yes [id number] Use as Univers 250 2-03 directed ity of unit/gram 00:00: by office [place] ointment 00 Medical Branch collagenase 2020-0 Yes [id number] Use as Univers 250 2-03 directed ity of unit/gram 00:00: by office [place] ointment 00 Medical Branch collagenase 202-0 Yes [id number] Use as Univers 250 2-03 directed ity of unit/gram 00:00: by office [place] ointment 00 Medical Branch collagenase 202-0 Yes [id number] Use as Univers 250 2-03 directed ity of unit/gram 00:00: by office [place] ointment 00 Medical Branch collagenase 202-0 Yes [id number] Use as Univers 250 2-03 directed ity of unit/gram 00:00: by office [place] ointment 00 Medical Branch collagenase 202-0 Yes [id number] Use as Univers 250 2-03 directed ity of unit/gram 00:00: by office [place] ointment 00 Medical Branch collagenase 202-0 Yes [id number] Use as Univers 250 2-03 directed ity of unit/gram 00:00: by office [place] ointment 00 Medical Branch collagenase 0 Yes [id number] Use as Univers 250 2-03 directed ity of unit/gram 00:00: by office [place] ointment Medical Branch collagenase 0 Yes [id number] Use as Univers 250 2-03 directed ity of unit/gram 00:00: by office [place] ointment Medical Branch collagenase 0 Yes [id number] Use as Univers 250 2-03 directed ity of unit/gram 00:00: by office [place] as ointment Medical Branch collagenase 0 Yes [id number] Use as Univers 250 2-03 directed ity of unit/gram 00:00: by office [place] as ointment Medical Branch collagenase 0 Yes [id number] Use as Univers 250 2-03 directed ity of unit/gram 00:00: by office [place] ointment Medical Branch collagenase Yes [id number] Use as Univers 250 2-03 directed ity of unit/gram 00:00: by office [place] ointment Medical Branch collagenase 0 Yes [id number] Use as Univers 250 1-21 directed ity of unit/gram 00:00: by office [place] as ointment Medical Branch collagenase 0 Yes [id number] Use as Univers 250 1-21 directed ity of unit/gram 00:00: by office [place] [facility] as ointment Medical Branch collagenase 2020-0 2020- No [id number] Use as Univers 250 1-21 02-03 directed [...] Peripheral arterial disease, DVT and/or PE simvastatin 2020-0 Yes 40mg Take 40 mg Univers 40 mg 1-12 by mouth ity of tablet 22:03: at [place] [address] bedtime. Medical Branch warfarin 5 2020-0 Yes 5mg Take 5 mg [place] mg tablet 1-12 by mouth ity of 22:03: every [place] 25 evening. Medical Branch omeprazole 2020-0 Yes 20mg Take 20 mg U nivers 20 mg 1-12 by mouth ity of capsule 22:03: daily. [place] [address] Medical Branch metformin 2020-0 Yes 750mg Take 750 Uni vers ER 750 mg 1-12 mg by ity of 24 hr 22:03: mouth [place] tablet 25 daily with Medical breakfast. Branch simvastatin 2020-0 Yes 40mg Take 40 mg Univers 40 mg 1-12 by mouth ity of tablet 22:03: at [place] [address] bedtime. Medical Branch warfarin 5 2020-0 Yes 5mg Take 5 mg [facility] [place] mg tablet 1-12 by mouth ity of 22:03: every [place] [address] evening. Medical Branch omeprazole 2020-0 Yes 20mg Take 20 mg U nivers 20 mg 1-12 by mouth ity of capsule 22:03: daily. [place] [address] Medical Branch metformin 2020-0 Yes 750mg Take 750 Uni vers ER 750 mg 1-12 mg by ity of 24 hr 22:03: mouth [place] tablet 25 daily with Medical breakfast. Branch simvastatin 2020-0 Yes 40mg Take 40 mg Univers 40 mg 1-12 by mouth ity of tablet 22:03: at [place] [address] bedtime. Medical Branch warfarin 5 2020-0 Yes 5mg Take 5 mg [place] mg tablet 1-12 by mouth ity of 22:03: every [place] [address] evening. Medical Branch omeprazole 2020-0 Yes 20mg Take 20 mg U nivers 20 mg 1-12 by mouth ity of capsule 22:03: daily. [place] [address] Medical Branch metformin 2020-0 Yes 750mg Take 750 Uni vers ER 750 mg 1-12 mg by ity of 24 hr 22:03: mouth [place] tablet 25 daily with Medical breakfast. Branch simvastatin 2020-0 Yes 40mg Take 40 mg Univers 40 mg 1-12 by mouth ity of tablet 22:03: at [place] [address] bedtime. Medical Branch warfarin 5 2020-0 Yes 5mg Take 5 mg Un [place] mg tablet 1-12 by mouth ity of 22:03: every [place] [address] evening. Medical Branch omeprazole 2020-0 Yes 20mg Take 20 mg U nivers 20 mg 1-12 by mouth ity of capsule 22:03: daily. [place] [address] Medical Branch metformin Yes 750mg Take 750 Uni vers ER 750 mg 1-12 mg by ity of 24 hr 22:03: mouth [place] tablet 25 daily with Medical breakfast. Branch simvastatin Yes 40mg Take 40 mg Univers 40 mg -12 by mouth ity of tablet 22:03: at [place] [address] bedtime. Medical Branch warfarin 5 Yes 5mg Take 5 mg Un [place] mg tablet -12 by mouth ity of 22:03: every [place] [address] evening. Medical Branch omeprazole Yes 20mg Take 20 mg U nivers 20 mg -12 by mouth ity of capsule 22:03: daily. [place] [address] Medical Branch metformin Yes 750mg Take 750 Uni vers ER 750 mg 1-12 mg by ity of 24 hr 22:03: mouth [place] tablet 25 daily with Medical breakfast. Branch gabapentin 2020- No 300mg Take 300 U nivers 300 mg 06-02 mg by ity of capsule 20:27: 00:00 mouth 3 [place] 51 :00 (three) Medical times Branch daily. doxazosin 8 2020- No 8mg Take 8 mg Univers mg tablet 06-02 by mouth ity o f 20:27: 00:00 daily. [place] 51 :00 [facility] Branch amLODIPine 2020- No 5mg Take 5 mg U nivers 5 mg tablet 06-02 by mouth ity of 20:27: 00:00 daily. [place] 51 :00 Medical Branch gabapentin Yes 600mg 600 mg, Uni vers (NEURONTIN) 12 Oral, TID, it y of capsule 600 20:00: First dose [place] mg 00 (after Medical last Branch modificati on) on Mon06/02/20 at 1400, Until Discontinu ed, Routine morpHINE Yes 2mg 2 mg, Slow Uni vers injection 2 12 IV Push, ity of mg 18:00: Q6HPRN, [place] 00 Starting Medical [facility] Branch 06/02/20 at 1200, Until Discontinu ed, Routine, Pain (scale 7-10) acetaminoph Yes 1{tbl} 1 tablet, Univers en-codeine 1-12 Oral, ity of (TYLENOL 17:52: Q4HPRN, [place] #3) 300-30 44 Starting Medic al mg tablet 1 [facility] tablet 06/02/20 at 1152, Until Discontinu ed, Routine, Pain (scale 4-6) warfarin 2020- No 10mg 10 mg, Univer s (COUMADIN) 06-02 Oral, ONCE it y of tablet 10 16:30: 17:55 NOW, 1 [place] mg 00 :00 dose, [facility] Medical 06/02/20 at Branch 1030, Routine
INR Goal Range: 2-3
IND ICATION (More than one indication for warfarin can be selected): DVT and/or PE ciprofloxac Yes 500mg 500 mg, Un charley in HCl 12 Oral, ity of (CIPRO) 12:00: Q12HA2, [place] tablet 500 00 First dose Med ical mg on [facility] 06/02/20 at 0600, Until Discontinu ed, PIERRE
Re ason for Anti-Infec tive: Empiric Therapy for Suspected Infection< br>Empiric Therapy Site: Bone<br&gt ;Duration of therapy: 72 hours doxycycline Yes 100mg 100 mg, Un char[place] hyclate 12 Oral, ity of (Vibramycin 02:00: Q12H, [place] ) capsule 00 First dose Medi uriel 100 mg on [facility] Branch 06/01/20 at 2000, Until Discontinu ed, PIERRE
Re ason for Anti-Infec tive: Empiric Therapy for Suspected Infection< br>Empiric Therapy Site: Bone
Du ration of therapy: 72 hours lactobacill 2020-0 Yes 1{tbl} 1 tablet, [facility] us 12 Oral, TID, ity of acidophilus 00:15: First dose [place] (ACIDOPHILL 00 on [facility] l ) 25 06/01/20 at Branch million 1815, cell -100 Until mg captab 1 Discontinu tablet ed, Routine warfarin 0 2020- No 10mg 10 mg, Univer s (COUMADIN) 06-02 Oral, ONCE it y of tablet 10 00:15: 23:24 NOW, 1 [place] mg 00 :00 dose, [facility] 06/01/20 at Branch 1815, Routine
INR Goal Range: 2-3
IND ICATION (More than one indication for warfarin can be selected): DVT and/or PE gabapentin 2020- No [id number] 600mg Take 2 Univers 300 mg 06-02 capsules ity of capsule 00:00: 05:59 by mouth 3 [place] 00 :00 (three) Medical times Branch daily for 30 days. gabapentin 2020- No [id number] 600mg Take 2 Univers 300 mg 06-02- capsules ity of capsule 00:00: 05:59 by mouth 3 [place] 00 :00 (three) Medical times Branch daily for 30 days. gabapentin 2020- No [id number] 600mg Take 2 Univers 300 mg 06-02 capsules ity of capsule 00:00: 05:59 by mouth 3 [place] 00 :00 (three) Medical times Branch daily for 30 days. gabapentin 2020- No [id number] 600mg Take 2 Univers 300 mg 06-02- capsules ity of capsule 00:00: 05:59 by mouth 3 [place] 00 :00 (three) Medical times Branch daily for 30 days. gabapentin 2020- No [id number] 600mg Take 2 Univers 300 mg 06-02 capsules ity of capsule 00:00: 05:59 by mouth 3 [place] 00 :00 (three) Medical times Branch daily for 30 days. insulin NPH 2020- No [id number] 16U inject 16 Univers 100 unit/mL 06-02-29 Units ity of injection 00:00: 05:59 under the [place] 00 :00 skin every Medical morning Branch and at bedtime for 16 days. insulin NPH 2020- No [id number] 16U inject 16 Univers 100 unit/mL 06-02-29 Units ity of injection 00:00: 05:59 under the [place] 00 :00 skin every Medical morning Branch and at bedtime for 16 days. insulin NPH 2020- No [id number] 16U inject 16 Univers 100 unit/mL 06-02-29 Units ity of injection 00:00: 05:59 under the [place] 00 :00 skin every Medical morning Branch and at bedtime for 16 days. insulin NPH 2020- No [id number] 16U inject 16 Univers 100 unit/mL 06-02 Units ity of injection 00:00: 05:59 under the [place] 00 :00 skin every Medical morning Branch and at bedtime for 16 days. ciprofloxac 2020- No [id number] 500mg Take 1 Univers in HCl 500 06-02 tablet by ity of mg tablet 00:00: 05:59 mouth [place] 00 :00 every 12 Medical (twelve) Branch hours for 10 days. doxycycline 2020- No [id number] 100mg Take 1 Univers hyclate 100 06-02 capsule by i ty of mg capsule 00:00: 05:59 mouth [place] 00 :00 every 12 Medical (twelve) Branch hours for 10 days. lactobacill 2020- No [id number] 1{tbl} Take 1 Univers us 06-02 tablet by ity of acidophilus 00:00: 05:59 mouth 2 [place] 25 million 00 :00 (two) Medical cell -100 times Branch mg captab daily for 10 days. ciprofloxac 2020- No [id number] 500mg Take 1 Univers in HCl 500 06-02 tablet by ity of mg tablet 00:00: 05:59 mouth [place] 00 :00 every 12 Medical (twelve) Branch hours for 10 days. doxycycline 2020- No [id number] 100mg Take 1 Univers hyclate 100 06-02 capsule by i ty of mg capsule 00:00: 05:59 mouth [place] 00 :00 every 12 Medical (twelve) Branch hours for 10 days. lactobacill 2020- No [id number] 1{tbl} Take 1 Univers us 06-02 tablet by ity of acidophilus 00:00: 05:59 mouth 2 [place] 25 million 00 :00 (two) Medical cell -100 times Branch mg captab daily for 10 days. ciprofloxac 2020- No [id number] 500mg Take 1 Univers in HCl 500 06-02 tablet by ity of mg tablet 00:00: 05:59 mouth [place] 00 :00 every 12 Medical (twelve) Branch hours for 10 days. doxycycline 2020- No [id number] 100mg Take 1 Univers hyclate 100 06-02 capsule by i ty of mg capsule 00:00: 05:59 mouth [place] 00 :00 every 12 Medical (twelve) Branch hours for 10 days. lactobacill 2020- No [id number] 1{tbl} Take 1 Univers us 06-02 tablet by ity of acidophilus 00:00: 05:59 mouth 2 [place] 25 million 00 :00 (two) Medical cell -100 times Branch mg captab daily for 10 days. ciprofloxac 2020- No [id number] 500mg Take 1 Univers in HCl 500 06-02 tablet by ity of mg tablet 00:00: 05:59 mouth [place] 00 :00 every 12 Medical (twelve) Branch hours for 10 days. doxycycline 2020- No [id number] 100mg Take 1 Univers hyclate 100 06-02 capsule by i ty of mg capsule 00:00: 05:59 mouth [place] 00 :00 every 12 Medical (twelve) Branch hours for 10 days. lactobacill 2020- No [id number] 1{tbl} Take 1 Univers us 06-02 tablet [...] mg 00 :00 ONCE, 1 Medical dose, [facility] 06/01/20 at 0645, Routine
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
INR Goal Range: 2-3
IND ICATION (More than one indication for warfarin can be selected): DVT and/or PE tamsulosin Yes .4mg 0.4 mg, Univ ers (FLOMAX) 05-30 Oral, ity of capsule 0.4 15:00: DAILY, [place] mg 00 First dose Medical on [facility] 05/30/20 at 0900, Until Discontinu ed, Routine omeprazole Yes 20mg 20 mg, Unive rs (PRILOSEC) 05-30 Oral, ity of capsule 20 15:00: DAILY, [place] mg 00 First dose Medical on [facility] Branch 05/30/20 at 0900, Until Discontinu ed, Routine glipiZIDE Yes 5mg 5 mg, Univers (GLUCOTROL) 05-30 Oral, ity of tablet 5 mg 15:00: DAILY, [place] 00 First dose Medical on [facility] [facility] 05/30/20 at 0900, Until Discontinu ed, Routine clopidogreL Yes 75mg 75 mg, Univ ers (PLAVIX) 05-30 Oral, ity of tablet 75 15:00: DAILY, [place] mg 00 First dose Medical on [facility] Branch 05/30/20 at 0900, Until Discontinu ed, Routine lisinopriL 2020- No 2.5mg 2.5 mg, Un [place] (PRINIVIL,Z 05-30 Oral, ity of ESTRIL) 15:00: 18:14 DAILY, [place] tablet 2.5 00 :04 First dose Med ical mg on [facility] 05/30/20 at 0900, Until Discontinu ed, Routine doxazosin 2020- No 8mg 8 mg, Univer s (CARDURA) 05-30 Oral, ity of tablet 8 mg 15:00: 18:14 DAILY, [place] 00 :04 First dose Medical on Sat Branch 05/30/20 at 0900, Until Discontinu ed, Routine aspirin 2020- No 81mg 81 mg, Univers chewable 05-30 Oral, ity of tablet 81 15:00: 00:11 DAILY, [place] mg 00 :16 First dose Medical on Sat Branch 05/30/20 at 0900, Until Discontinu ed, Routine amLODIPine 2020- No 5mg 5 mg, Unive rs (NORVASC) 05-30 Oral, ity of tablet 5 mg 15:00: 11:34 DAILY, [place] 00 :40 First dose Medical on Sat Branch 05/30/20 at 0900, Until Discontinu ed, Routine enoxaparin Yes 1mg/kg 70 mg [facility] ers (LOVENOX) 05-30 (rounded ity of injection 14:00: from 74.8 [place] 70 mg 00 mg = 1 Medical mg/kg Branch ?74.8 kg), Subcutaneo us, Q12H, First dose on Mon05/30/20 at 0800, Until Discontinu ed, Routine levothyroxi Yes 50ug 50 mcg, Uni vers ne 05-30 Oral, ity of (SYNTHROID) 12:00: QAM-0600, [place] tablet 50 00 First dose Medi uriel mcg on [facility] Branch 05/30/20 at 0600, Until Discontinu ed, Routine simvastatin Yes 40mg 40 mg, Univ ers (ZOCOR) 05-30 Oral, QHS, ity of tablet 40 03:00: First dose [place] mg 00 on Mon Medical 05/29/20 at Branch 2100, Until Discontinu ed, Routine insulin NPH Yes 16U 16 Units, U nivers (HUMULIN N) 05-30 Subcutaneo it y of injection 03:00: , [place] 16 Units 00 QAM+HS, Medical First dose Branch on Mon05/29/20 at 2100, Until Discontinu ed, Routine venlafaxine Yes 75mg 75 mg, Univ ers (EFFEXOR) 05-30 Oral, BID, ity of tablet 75 02:00: First dose [place] mg 00 on Mon Medical 05/29/20 at [place] 1999, Until Discontinu ed, Routine gabapentin 2020- No 300mg 300 mg, [facility] [place] (NEURONTIN) 05-30 Oral, TID, i ty of capsule 300 02:00: 17:53 First dose [place] mg 00 :30 on Mon Medical 05/29/20 at [place] 1999, Until Discontinu ed, Routine vancomycin 2020- No 1000mg 1,000 mg, Univers (VANCOCIN) 05-30 IV ity of 1,000 mg in 02:00: 14:39 [facility], [place] NaCl 0.9% 00 :56 Q12H ABX, Medic al (NS) 250 mL First dose Br anch VIAL-MATE on Mon IV 05/29/20 at [facility] 1999, Until Discontinu ed, 250 mL
R debbie for Anti-Infec tive: Empiric Therapy for Suspected Infection< br>Empiric Therapy Site: Bone
Du ration of therapy: 7 days vancomycin No 1000mg 1,000 mg, Univers (VANCOCIN) 05-30 IV ity of injection 02:00: 21:33 [facility] [place] 1,000 mg 00 :35 Q12H, Medical First dose Branch on Mon05/29/20 at 2000, Until Discontinu ed, PIERRE
Re ason for Anti-Infec tive: Empiric Therapy for Suspected Infection< br>Empiric Therapy Site: Bone
Duration of therapy: 7 days warfarin No 5mg 5 mg, Univers (COUMADIN) 05-30 [...] IV Push, ity of (PF)) 23:03: Q6HPRN, [place] injection 4 07 Starting Medi uriel mg 05/29/20 Branch at 1703, Until Discontinu ed, Routine, Nausea and Vomiting (N/V) furosemide Yes 40mg 40 mg, Unive rs (LASIX) 08 Oral, ity of tablet 40 23:00: QAM+PM, [place] mg 00 First dose Medical on Mon Branch 05/29/20 at 1700, Until Discontinu ed, Routine Sliding Yes Subcutaneo Univ ers Scale 1-08 us, TID ity of Insulin - 23:00: MEALS+HS, [place] Lispro 00 First dose Medical (HumaLOG) + on Mon Branch Fsbg 05/29/20 at Testing 1700, Until Discontinu ed, Routine enoxaparin 2020- No 30mg 30 mg, Univ ers (LOVENOX) 05-29 Subcutaneo ity of injection 23:00: 09:01 us, DAILY, [place] 30 mg 00 :43 First dose Medical on Mon Branch 05/29/20 at 1700, Until Discontinu ed, Routine morpHINE 2020- No 2mg 2 mg, Slow [place] injection 2 05-29 IV Push, ity of mg 22:42: 17:53 Q4HPRN, [place] 04 :30 Starting Medical 05/29/20 Branch at [...] [place] KIT) 39 Starting Medical injection 1 05/29/20 Br anch mg at 1415, Until [...] at 1153, Routine, Pain (scale 1-3) morpHINE 2020- No 4mg 4 mg, Slow [place] injection 4 05-29 IV Push, ity of mg 19:41: 19:45 ONCE, 1 [place] 00 :00 dose, Fri Medical 05/29/20 at Branch 1345, STAT ondansetron 2020- No 4mg 4 mg, Slow Univers (ZOFRAN 05-29 IV Push, ity of (PF)) 16:45: 15:55 ONCE, 1 [place] injection 4 00 :00 dose, Mon Med ical mg 05/29/20 at Branch 1045, Routine morpHINE 2020- No 4mg 4 mg, Slow [place] injection 4 08 01-08 IV Push, ity of mg 16:45: 15:55 ONCE, 1 [place] 00 :00 dose, Fri Medical 05/29/20 at Branch 1045, STAT NaCl 0.9% 2020- No 1000mL at 999 Uni vers (NS) bolus 108 01-08 mL/hr, ity of infusion 16:45: 19:40 1,000 mL, [place] 1,000 mL 00 :00 IV Medical Piggyback, [place] ONCE, 1 dose, 05/29/20 at 1045, STAT bacitracin 2019-05 Yes [id number] Apply to Univers 500 2-03 affected ity of unit/gram 00:00: area(s) 4 [place] ointment 00 (four) Medical times Branch daily. bacitracin 2020- Yes [id number] Apply to Univers 500 2-03 affected ity of unit/gram 00:00: area(s) 4 [place] ointment 00 (four) Medical times Branch daily. bacitracin 2020- Yes [id number] Apply to Univers 500 2-03 affected ity of unit/gram 00:00: area(s) 4 [place] ointment 00 (four) Medical times Branch daily. bacitracin 2020-1 Yes [id number] Apply to Univers 500 2-03 affected ity of unit/gram 00:00: area(s) 4 [place] ointment 00 (four) Medical times Branch daily. bacitracin 2020-1 Yes [id number] Apply to Univers 500 2-03 affected ity of unit/gram 00:00: area(s) 4 [place] ointment 00 (four) Medical times Branch daily. bacitracin 2020-1 Yes [id number] Apply to Univers 500 2-03 affected ity of unit/gram 00:00: area(s) 4 [place] ointment 00 (four) Medical times Branch daily. bacitracin 2020-1 Yes [id number] Apply to Univers 500 2-03 affected ity of unit/gram 00:00: area(s) 4 [place] ointment 00 (four) Medical times Branch daily. bacitracin 2020-1 Yes [id number] Apply to Univers 500 2-03 affected ity of unit/gram 00:00: area(s) 4 [place] ointment 00 (four) Medical times Branch daily. bacitracin 2019-05 Yes [id number] Apply to Univers 500 2-03 affected ity of unit/gram 00:00: area(s) 4 [place] ointment 00 (four) Medical times Branch daily. bacitracin 2019-05 Yes [id number] Apply to Univers 500 2-03 affected ity of unit/gram 00:00: area(s) 4 [place] ointment 00 (four) Medical times Branch daily. bacitracin 2019-05- No [id number] Apply to Univers 500 2-03 03-08 affected ity of unit/gram 00:00: 00:00 area(s) 4 [place] ointment 00 :00 (four) Medical times Branch daily. aspirin 81 2019- Yes [id number] 81mg Take 1 Univers mg chewable 1-06 08307 tablet by it y of tablet 00:00: mouth [place] 00 daily. Medical Branch aspirin 81 2019- Yes [id number] 81mg Take 1 Univers mg chewable 1-06 14561 tablet by it y of tablet 00:00: mouth [place] 00 daily. Medical Branch aspirin 81 2019- Yes [id number] 81mg Take 1 Univers mg chewable 1-06 66095 tablet by it y of tablet 00:00: mouth [place] 00 daily. Medical Branch aspirin 81 2020- Yes [id number] 81mg Take 1 Univers mg chewable 1-06 89160 tablet by it y of tablet 00:00: mouth [place] 00 daily. Medical Branch aspirin 81 2020- Yes [id number] 81mg Take 1 Univers mg chewable 1-06 12311 tablet by it y of tablet 00:00: mouth [place] 00 daily. Medical Branch aspirin 81 2020- Yes [id number] 81mg Take 1 Univers mg chewable 1-06 44343 tablet by it y of tablet 00:00: mouth [place] 00 daily. Medical Branch aspirin 81 2020- Yes [id number] 81mg Take 1 Univers mg chewable 1-06 68894 tablet by it y of tablet 00:00: mouth [place] 00 daily. Medical Branch aspirin 81 2020- Yes [id number] 81mg Take 1 Univers mg chewable 1-06 59386 tablet by it y of tablet 00:00: mouth [place] 00 daily. Medical Branch aspirin 81 2020-1 Yes [id number] 81mg Take 1 Univers mg chewable 1-06 71663 tablet by it y of tablet 00:00: mouth [place] 00 daily. Medical Branch aspirin 81 2020- Yes [id number] 81mg Take 1 Univers mg chewable 1-06 46174 tablet by it y of tablet 00:00: mouth [place] 00 daily. Medical Branch aspirin 81 2020- Yes [id number] 81mg Take 1 Univers mg chewable 1-06 51916 tablet by it y of tablet 00:00: mouth [place] 00 daily. Medical Branch aspirin 81 2020- Yes [id number] 81mg Take 1 Univers mg chewable 1-06 84300 tablet by it y of tablet 00:00: mouth [place] 00 daily. Medical Branch aspirin 81 2020- Yes [id number] 81mg Take 1 Univers mg chewable 1-06 65168 tablet by it y of tablet 00:00: mouth [place] 00 daily. Medical Branch aspirin 81 2020- Yes [id number] 81mg Take 1 Univers mg chewable 1-06 53617 tablet by it y of tablet 00:00: mouth [place] 00 daily. Medical Branch aspirin 81 2020- Yes [id number] 81mg Take 1 Univers mg chewable 1-06 54594 tablet by it y of tablet 00:00: mouth [place] 00 daily. Medical Branch aspirin 81 2020- Yes [id number] 81mg Take 1 Univers mg chewable 1-06 61733 tablet by it y of tablet 00:00: mouth [place] 00 daily. Medical Branch aspirin 81 2020- Yes [id number] 81mg Take 1 Univers mg chewable 1-06 76540 tablet by it y of tablet 00:00: mouth [place] 00 daily. Medical Branch aspirin 81 2020- Yes [id number] 81mg Take 1 Univers mg chewable 1-06 40989 tablet by it y of tablet 00:00: mouth [place] 00 daily. Medical Branch aspirin 81 2020- Yes [id number] 81mg Take 1 Univers mg chewable 1-06 40145 tablet by it y of tablet 00:00: mouth [place] 00 daily. Medical Branch aspirin 81 2020- Yes [id number] 81mg Take 1 Univers mg chewable 1-06 24231 tablet by it y of tablet 00:00: mouth [place] 00 daily. Medical Branch aspirin 81 2020- Yes [id number] 81mg Take 1 Univers mg chewable 1-06 67706 tablet by it y of tablet 00:00: mouth [place] 00 daily. Medical Branch aspirin 81 2019-05 Yes [id number] 81mg Take 1 Univers mg chewable 05-2707 tablet by it y of tablet 00:00: mouth [place] 00 daily. Medical Branch aspirin 81 2019-05- No [id number] 81mg Take 1 Univers mg chewable 05-27- tablet by i ty of tablet 00:00: 00:00 mouth [place] 00 :00 daily. Medical Branch levoFLOXaci 2019-05 Yes 750mg 750 mg, Un charley n 1-05 Oral, Q24H ity of (LEVAQUIN) 22:40: ABX, First [place] tablet 750 00 dose on Medica l mg Annie Branch 03/26/20 at 1645, Until Discontinu ed, PIERRE
Re ason for Anti-Infec tive: Documented Infection< br>Documen ludmila Infection Site: Skin / Soft Tissue<br& gt;Duratio n of Therapy: Other (see Comments) insulin NPH 2019-05 Yes [id number] 5U inject 5 Univers 100 unit/mL - 83374 Units ity of injection 00:00: under the [place] 00 skin every Medical morning Branch and at bedtime. insulin NPH 2019-05 Yes [id number] 5U inject 5 Univers 100 unit/mL - 39973 Units ity of injection 00:00: under the [place] 00 skin every Medical morning Branch and at bedtime. insulin NPH 2019-05 Yes [id number] 5U inject 5 Univers 100 unit/mL - 99372 Units ity of injection 00:00: under the [place] 00 skin every Medical morning Branch and at bedtime. insulin NPH 2019-05 Yes [id number] 5U inject 5 Univers 100 unit/mL - 03059 Units ity of injection 00:00: under the [place] 00 skin every Medical morning Branch and at bedtime. insulin NPH 2019-05 Yes [id number] 5U inject 5 Univers 100 unit/mL 1-05 40694 Units ity of injection 00:00: under the [place] 00 skin every Medical morning Branch and at bedtime. insulin NPH 2019-05 Yes [id number] 5U inject 5 Univers 100 unit/mL 1-05 14059 Units ity of injection 00:00: under the [place] 00 skin every Medical morning Branch and at bedtime. insulin NPH 2019-05 Yes [id number] 5U inject 5 Univers 100 unit/mL 05-26 53655 Units ity of injection 00:00: under the [place] 00 skin every Medical morning Branch and at bedtime. insulin NPH 2019-05 Yes [id number] 5U inject 5 Univers 100 unit/mL 05-26 55353 Units ity of injection 00:00: under the [place] 00 skin every Medical morning Branch and at bedtime. acetaminoph 2019-05- No [id number] 650mg Take 2 Univers en 325 mg 05-26 83969 tablets by it y of tablet 00:00: 04:59 mouth [place] 00 :00 every 6 Medical (six) Branch hours. acetaminoph 2019-05- No [id number] 650mg Take 2 Univers en 325 mg 05-26 31688 tablets by it y of tablet 00:00: 04:59 mouth [place] 00 :00 every 6 Medical (six) Branch hours. acetaminoph 2019-05- No [id number] 650mg Take 2 Univers en 325 mg 05-26 21541 tablets by it y of tablet 00:00: 04:59 mouth [place] 00 :00 every 6 Medical (six) Branch hours. acetaminoph 2019-05- No [id number] 650mg Take 2 Univers en 325 mg 05-26 44741 tablets by it y of tablet 00:00: 04:59 mouth [place] 00 :00 every 6 Medical (six) Branch hours. acetaminoph 2019-05- No [id number] 650mg Take 2 Univers en 325 mg 05-26 41934 tablets by it y of tablet 00:00: 04:59 mouth [place] 00 :00 every 6 Medical (six) Branch hours. acetaminoph 2019-05- No [id number] 650mg Take 2 Univers en 325 mg 05-26 60222 tablets by it y of tablet 00:00: 04:59 mouth [place] 00 :00 every 6 Medical (six) Branch hours. acetaminoph 2019-05- No [id number] 650mg Take 2 Univers en 325 mg 05-26 42366 tablets by it y of tablet 00:00: 04:59 mouth [place] 00 :00 every 6 Medical (six) Branch hours. acetaminoph 2019-05- No [id number] 650mg Take 2 Univers en 325 mg 05-26 50523 tablets by it y of tablet 00:00: 04:59 mouth [place] 00 :00 every 6 Medical (six) Branch hours. acetaminoph 2019-05- No [id number] 650mg Take 2 Univers en 325 mg 05-26 11294 tablets by it y of tablet 00:00: 04:59 mouth [place] 00 :00 every 6 Medical (six) Branch hours. acetaminoph 2019-05- No [id number] 650mg Take 2 Univers en 325 mg 05-26 65673 tablets by it y of tablet 00:00: 04:59 mouth [place] 00 :00 every 6 Medical (six) Branch hours. acetaminoph 2019-05- No [id number] 650mg Take 2 Univers en 325 mg 05-26 98753 tablets by it y of tablet 00:00: 04:59 mouth [place] 00 :00 every 6 Medical (six) Branch hours. acetaminoph 2019-05- No [id number] 650mg Take 2 Univers en 325 mg 05-26 04195 tablets by it y of tablet 00:00: 04:59 mouth [place] 00 :00 every 6 Medical (six) Branch hours. acetaminoph 2019-05- No [id number] 650mg Take 2 Univers en 325 mg 05-26 67096 tablets by it y of tablet 00:00: 04:59 mouth [place] 00 :00 every 6 Medical (six) Branch hours. acetaminoph 2019-05- No [id number] 650mg Take 2 Univers en 325 mg 05-26 16722 tablets by it y of tablet 00:00: 04:59 mouth [place] 00 :00 every 6 Medical (six) Branch hours. acetaminoph 2019-05- No [id number] 650mg Take 2 Univers en 325 mg 05-26 04970 tablets by it y of tablet 00:00: 04:59 mouth [place] 00 :00 every 6 Medical (six) Branch hours. acetaminoph 2019-05- No [id number] 650mg Take 2 Univers en 325 mg 05-26 62079 tablets by it y of tablet 00:00: 04:59 mouth [place] 00 :00 every 6 Medical (six) Branch hours. acetaminoph 2019-05- No [id number] 650mg Take 2 Univers en 325 mg 05-26 28854 tablets by it y of tablet 00:00: 04:59 mouth [place] 00 :00 every 6 Medical (six) Branch hours. acetaminoph 2019-05- No [id number] 650mg Take 2 Univers en 325 mg 05-26 36214 tablets by it y of tablet 00:00: 04:59 mouth [place] 00 :00 every 6 Medical (six) Branch hours. acetaminoph 2019-05- No [id number] 650mg Take 2 Univers en 325 mg 05-26 35176 tablets by it y of tablet 00:00: 04:59 mouth [place] 00 :00 every 6 Medical (six) Branch hours. acetaminoph 2019-05- No [id number] 650mg Take 2 Univers en 325 mg 05-26 44899 tablets by it y of tablet 00:00: 04:59 mouth [place] 00 :00 every 6 Medical (six) Branch hours. acetaminoph 2019-05- No [id number] 650mg Take 2 Univers en 325 mg 05-26 63339 tablets by it y of tablet 00:00: 04:59 mouth [place] 00 :00 every 6 Medical (six) Branch hours. acetaminoph 2019-05- No [id number] 650mg Take 2 Univers en 325 mg 05-26 40780 tablets by it y of tablet 00:00: 04:59 mouth [place] 00 :00 every 6 Medical (six) Branch hours. acetaminoph 2019-05- No [id number] 650mg Take 2 Univers en 325 mg 05-26 96371 tablets by it y of tablet 00:00: 04:59 mouth [place] 00 :00 every 6 Medical (six) Branch hours. acetaminoph 2019-05- No [id number] 650mg Take 2 Univers en 325 mg 05-26 54036 tablets by it y of tablet 00:00: 04:59 mouth [place] 00 :00 every 6 Medical (six) Branch hours. acetaminoph 2019-05- No [id number] 650mg Take 2 Univers en 325 mg 05-26 02462 tablets by it y of tablet 00:00: 04:59 mouth [place] 00 :00 every 6 Medical (six) Branch hours. acetaminoph 2019-05- No [id number] 650mg Take 2 Univers en 325 mg 05-26 12931 tablets by it y of tablet 00:00: 04:59 mouth [place] 00 :00 every 6 Medical (six) Branch hours. acetaminoph 2019-05- No [id number] 650mg Take 2 Univers en 325 mg 05-26 05671 tablets by it y of tablet 00:00: 04:59 mouth [place] 00 :00 every 6 Medical (six) Branch hours. acetaminoph 2019-05- No [id number] 650mg Take 2 Univers en 325 mg 05-26 80316 tablets by it y of tablet 00:00: 04:59 mouth [place] 00 :00 every 6 Medical (six) Branch hours. acetaminoph 2019-05- No [id number] 650mg Take 2 Univers en 325 mg 05-26 44696 tablets by it y of tablet 00:00: 04:59 mouth [place] 00 :00 every 6 Medical (six) Branch hours. acetaminoph 2019-05- No [id number] 650mg Take 2 Univers en 325 mg 05-26 16120 tablets by it y of tablet 00:00: 04:59 mouth [place] 00 :00 every 6 Medical (six) Branch hours. acetaminoph 2019-05- No [id number] 650mg Take 2 Univers en 325 mg 05-26 23868 tablets by it y of tablet 00:00: 04:59 mouth [place] 00 :00 every 6 Medical (six) Branch hours. acetaminoph 2019-05- No [id number] 650mg Take 2 Univers en 325 mg 05-26 47567 tablets by it y of tablet 00:00: 04:59 mouth [place] 00 :00 every 6 Medical (six) Branch hours. acetaminoph 2019-05- No [id number] 650mg Take 2 Univers en 325 mg 05-26 75985 tablets by it y of tablet 00:00: 04:59 mouth [place] 00 :00 every 6 Medical (six) Branch hours. acetaminoph 2019-05- No [id number] 650mg Take 2 Univers en 325 mg 05-26 10160 tablets by it y of tablet 00:00: 04:59 mouth [place] 00 :00 every 6 Medical (six) Branch hours. acetaminoph 2019-05- No [id number] 650mg Take 2 Univers en 325 mg 05-26 33995 tablets by it y of tablet 00:00: 04:59 mouth [place] 00 :00 every 6 Medical (six) Branch hours. acetaminoph 2019-05- No [id number] 650mg Take 2 Univers en 325 mg 05-26 51439 tablets by it y of tablet 00:00: 04:59 mouth [place] 00 :00 every 6 Medical (six) Branch hours. acetaminoph 2019-05- No [id number] 650mg Take 2 Univers en 325 mg 05-26 tablets by it y of tablet 00:00: 04:59 mouth [place] 00 :00 every 6 Medical (six) Branch hours. acetaminoph 2019-05- No [id number] 650mg Take 2 Univers en 325 mg 05-26 tablets by it y of tablet 00:00: 04:59 mouth [place] 00 :00 every 6 Medical (six) Branch hours. insulin NPH 2019-05- No [id number] 5U inject 5 Univers 100 unit/mL 05-26 Units ity o f injection 00:00: 00:00 under the [place] 00 :00 skin every Medical morning Branch and at bedtime. levoFLOXaci 2019-05- No [id number] 750mg Take 1 Univers n 750 mg 05-26 tablet by ity of tablet 00:00: 05:59 mouth [place] 00 :00 every 24 Medical (twenty-fo Branch ur) hours for 9 days. levoFLOXaci 2019-05- No [id number] 750mg Take 1 Univers n 750 mg 05-26 tablet by ity of tablet 00:00: 05:59 mouth [place] 00 :00 every 24 Medical (twenty-fo Branch ur) hours for 9 days. lisinopriL 2019- Yes 2.5mg 2.5 mg, Uni vers (PRINIVIL,Z 05-23 Oral, ity of ESTRIL) 15:00: DAILY, [place] tablet 2.5 00 First dose Med ical mg on [facility] 03/23/20 at 0900, Until Discontinu ed, Routine KCL 2019-05 Yes 20meq 20 mEq, Univers (KLOR-CON 02 Oral, ity of M20) tablet 15:00: DAILY, [place] 20 mEq 00 First dose Medical on [facility] 03/23/20 at 0900, Until Discontinu ed, Routine clopidogreL 2019-05 Yes 75mg 75 mg, Univ ers (PLAVIX) 05-23 Oral, ity of tablet 75 15:00: DAILY, [place] mg 00 First dose Medical on [facility] 03/23/20 at 0900, Until Discontinu ed, Routine metoprolol 2019-05 Yes 25mg 25 mg, Unive rs succinate 05-23 Oral, BID, ity of XL (TOPROL 02:00: First dose [place] XL) tablet 00 on [facility] 25 mg 03/22/20 at Branch 2000, Until Discontinu ed, Routine apixaban 2019-05 Yes 1358 5mg 5 mg, Univers (ELIQUIS) 05-23 Oral, BID, ity of tablet 5 mg 02:00: First dose [place] 00 on [facility] 03/22/20 at Branch 2000, Until Discontinu ed, Routine furosemide 2019-05 Yes 40mg 40 mg, Unive rs (LASIX) 05-22 Oral, ity of tablet 40 23:00: QAM+PM, [place] mg 00 First dose Medical on [facility] 03/22/20 at 1700, Until Discontinu ed, Routine [...] 2019-05 2020- No ONCE INTRA Univers dine 03-18 PROCEDURE, ity of (PRECEDEX) 21:39: 21:42 Starting [place] injection 00 :23 [facility] 03/18/20 Branch at 1639, Until Mon03/18/20 at 1642, Routine, Intra-op acetaminoph 2019-05- No Administer Univers en ADULT 03-18 over 15 ity of (OFIRMEV) 20:18: 21:42 Minutes, [place] injection 00 :23 ONCE INTRA Medi uriel PROCEDURE, Branch Starting Mon03/18/20 at 1518, Until Mon03/18/20 at 1642, Routine, Intra-op HYDROmorphO 2019-05- No ONCE INTRA Univers ne 03-18 PROCEDURE, ity of (DILAUDID) 20:15: 21:42 Starting [place] injection 00 :23 [facility] 03/18/20 Branch at 1515, Until Mon03/18/20 at 1642, Routine, Intra-op dexamethaso 2019-05- No ONCE INTRA Univers ne 03-18 PROCEDURE, ity of (DECADRON 19:36: 21:42 Starting [place] PHOSPHATE) 00 :23 [facility] Medical injection 03/18/20 Branch at 1436, Until Mon03/18/20 at 1642, Routine, Intra-op albumin 2019-05- No CONTINUOUS Uni vers (ALBUMINAR- 03-18 PRN, ity of 5) 5 % 19:30: 21:42 Starting [place] injection 00 :23 [facility] 03/18/20 Branch at 1430, Until Mon03/18/20 at 1642, Intra-op FENTanyl PF 2019-05- No ONCE INTRA Univers (SUBLIMAZE 03-18 PROCEDURE, it y of (PF)) 19:27: 21:42 Starting [place] injection 00 :23 [facility] 03/18/20 Branch at 1427, Until Mon03/18/20 at 1642, Routine, Intra-op meropenem 2019-05 2020- No CONTINUOUS U nivers (MERREM) 03-18 PRN, ity of 500 mg in 19:21: 21:42 Starting [place] NaCl 0.9% 00 :23 [facility] (NS) 100 mL 03/18/20 Bran ch IV at 1421, piggyback Until Mon03/18/20 at 1642, 100 mL, Intra-op PHENYLephri 2019-05 2020- No CONTINUOUS Univers ne 1000 03-18 PRN, ity of mcg/10 mL 19:09: 21:42 Starting [place] in 0.9% 00 :23 [facility] NaCl 03/18/20 Branch syringe at 1409, Until Mon03/18/20 at 1642, Routine, Intra-op PHENYLephri 2019-05 2020- No ONCE INTRA Univers ne 1000 03-18 PROCEDURE, ity o f mcg/10 mL 19:09: 21:42 Starting [place] in 0.9% 00 :23 [facility] NaCl 03/18/20 Branch syringe at 1409, Until Mon03/18/20 at 1642, Routine, Intra-op propofoL IV 2019-05- No ONCE INTRA Univers infusion 03-18 PROCEDURE, ity of 18:55: 21:42 Starting [place] 00 :23 [facility] 03/18/20 Branch at 1355, Until Mon03/18/20 at 1642, Routine, Intra-op lidocaine 2019-05 2020- No ONCE INTRA U nivers 1% 03-18 PROCEDURE, ity of (XYLOCAINE) 18:55: 21:42 Starting [place] 100 mg/10 00 :23 [facility] mL (1 %) 03/18/20 Branch injection at 1355, Until Mon03/18/20 at 1642, Routine, Intra-op bupivacaine 2019-05 2020- No ONCE INTRA Univers (preserv 03-18 PROCEDURE, ity of free) 18:38: 21:42 Starting [place] (SENSORCAIN 00 :23 [facility] E MP[facility]) 0.25 03/18/20 Bran ch % (2.5 at 1338, mg/mL) Until Mon injection 03/18/20 at 1642, Routine, Intra-op midazolam 2019-05 2020- No ONCE INTRA U nivers (VERSED) 03-18 PROCEDURE, ity of injection 18:22: 21:42 Starting [place] 00 :23 [facility] 03/18/20 Branch at 1322, Until Mon03/18/20 at 1642, Routine, Intra-op lactated 2019-05 2020- No CONTINUOUS Un charley ringers IV 003-18 PRN, ity of infusion 18:15: 21:42 [place] 00 :23 [facility] 03/18/20 Branch at 1315, Until Mon03/18/20 at 1642, Routine, Intra-op atorvastati 2019-05 Yes 40mg 40 mg, Univ ers n (LIPITOR) 0-27 Oral, QHS, it y of tablet 40 02:00: First dose [place] mg 00 on [facility] 03/16/20 Branch at 2100, Until Discontinu ed, [...] 30 Starting Medica l tablet 1 Mon [place] tablet 03/16/20 at 1156, Until Discontinu ed, Routine, Pain (scale 4-6) NaCl 0.9% 2019-05 Yes 10mL 10 mL, Univer s (NS) 0-26 Slow IV ity of injection 16:56: Push, PRN, [place] 10 mL 09 Starting Medical [facility] 03/16/20 at 1156, Until Discontinu ed, Routine, line maintenanc e lidocaine 2019-05 Yes 5mL 5 mL, Univers 1% (PF) 0 Subcutaneo ity of (XYLOCAINE) 16:56: [place], PRN, [place] injection 5 09 Starting Medi uriel mL [facility] 03/16/20 at 1156, Until Discontinu ed, Routine, Local anesthesia NaCl 0.9% 2019-05 2020- No IV Univers (NS) 1000 003-19 Infusion, ity of mL + KCL 20 16:45: 14:26 at 150 [place] mEq 00 :04 mL/hr, Medical CONTINUOUS Branch , Starting Mon03/16/20 at 1145, Until [place] 03/19/20 at 0926, Routine NaCl 0.9% 2019-05- No 1000mL at 999 Uni vers (NS) bolus 0-26 10-26 mL/hr, ity of infusion 15:00: 13:52 1,000 mL, [place] as 1,000 mL 00 :00 IV Medical Piggyback, Branch ONCE, 1 dose, 03/16/20 at 1000, STAT KCL 2019-05- No 40meq 40 mEq, Univers (KLOR-CON 0- 10-26 Oral, Q2H, ity of M20) tablet 15:00: 17:18 2 doses, [place] 40 mEq 00 :00 First dose Medical on Mon Branch 03/16/20 at 1000, Last dose on Mon03/16/20 at 1200, Routine heparin 2019-05- No 1300U/h 1,300 Unive rs 25,000 0- 10-27 Units/hr ity of Units/250 14:25: 13:42 (13 [...] and Testing: ____ &nbs p; FO R [facility] ONLY - aPTT < [...] therapeuti c levels are reached.<b r> heparin 2019-05 2020- No 5000U 5,000 Univers 1000 0-26 10-26 Units, IV ity of unit/mL 14:15: 15:54 Push, [place] injection 00 :00 ONCE, 1 Medical Soln 5,000 dose, [facility] Bran ch Units 03/16/20 at 0915, Routine heparin 2019-05 Yes 3000U FOR Univers (1,000 0-26 REBOLUSING ity of unit/mL, 10 14:11: , Starting [place] mL vial) 00 [facility] 03/16/20 Branch at 0911, Until Discontinu ed, Routine
Dosing based on aPTT testing parameters (refer to continuous heparin drip order)
aspirin 2019-05 Yes 81mg 81 mg, Univers chewable 0-26 Oral, ity of tablet 81 14:00: DAILY, [place] mg 00 First dose Medical on [facility] Branch 03/16/20 at 0900, Until Discontinu ed, Routine pantoprazol 2019-05 Yes 20mg 20 mg, Univ ers e 0-26 Oral, ity of (PROTONIX) 14:00: DAILY, [place] EC tablet 00 First dose Medi uriel 20 mg on [facility] Branch 03/16/20 at 0900, Until Discontinu ed, Routine insulin NPH 2019-05 Yes 5U 5 Units, [facility] [place] (HUMULIN N) 0-26 Subcutaneo it y of injection 5 14:00: , [place] Units 00 QAM+HS, Medical First dose Branch on [facility] 03/16/20 at 0900, Until Discontinu ed, Routine lactobacill 2019-05 Yes 1{tbl} 1 tablet, Univers us 0-26 Oral, TID, ity of acidophilus 13:00: First dose [place] (ACIDOPHILL 00 on [facility] Medica l US) 25 03/16/20 Branch million at 0800, cell -100 Until mg captab 1 Discontinu tablet ed, Routine venlafaxine 2019-05 Yes 75mg 75 mg, Univ ers (EFFEXOR) 0-26 Oral, BID, ity of tablet 75 13:00: First dose [place] mg 00 on [facility] 03/16/20 Branch at 0800, Until Discontinu ed, Routine meropenem 2019-05 No 500mg 500 mg, IV Univers (MERREM) 031 Piggyback, ity of 500 mg in 13:00: 11:33 Administer [place] NaCl 0.9% 00 :35 over 60 Medical (NS) 100 mL Minutes, Bran ch MINI-BAG Q8H ABX, First dose on [facility] 03/16/20 at 0800, Until Discontinu ed, PIERRE
Re stricted use approved by: ADC PROVIDER<b r>Reason for Anti-Infec tive: Documented Infection< br>Documen ludmila Infection Site: Skin / Soft Tissue
Duration of Therapy: 7 days morpHINE 2019-05 Yes 2mg 2 mg, Slow Uni vers injection 2 0 IV Push, ity of mg 11:24: Q4HPRN, [place] 54 Starting Medical [facility] Branch 03/16/20 at 0624, Until Discontinu ed, Routine, Pain (scale 7-10) NaCl 0.9% 2019-05- No 1000mL at 999 Uni vers (NS) bolus 0-26 mL/hr, ity of infusion 11:08: 11:11 1,000 mL, [place] [facility] as 1,000 mL 00 :00 IV Medical [facility] [place] ONCE, 1 dose, [facility] 03/16/20 at 0615, STAT levothyroxi 2019-05 Yes 50ug 50 mcg, Uni vers ne 0 Oral, ity of (SYNTHROID) 11:00: QAM-0600, [place] tablet 50 00 First dose Medi uriel mcg on [facility] Branch 03/16/20 at 0600, Until Discontinu ed, Routine HYDROcodone 2019-05- No 1{tbl} 1 tablet, Univers -acetaminop 003-16 Oral, ity of hen (NORCO 09:34: 11:25 Q6HPRN, [place] 5) 5-325 mg 55 :02 Starting Medi uriel tablet 1 [facility] tablet 03/16/20 at 0434, Until Mon03/16/20 at 0625, Routine, Pain (scale 4-6) clindamycin 2019-05- No 900mg 900 mg, IV Univers in 5 % 003-16 Piggyback, ity of dextrose 09:00: 13:29 Q8H ABX, [place] (CLEOCIN) 00 :39 First dose Medi uriel 900 mg/50 on Mon Branch mL IV 03/16/20 piggyback at 0400, RTU 900 mg Until Discontinu ed, 50 mL
R debbie for Anti-Infec tive: Documented Infection< br>Documen ludmila Infection Site: Skin / Soft Tissue
Duration of Therapy: 7 days
Re stricted use approved by: ADC PROVIDER vancomycin 2019-05 2020- No 15mg/kg 1,250 mg Univers 1250 mg in 0-31 (rounded ity of NS 250 mL 08:45: [...] :40 CONTINUOUS Medic al , Starting Branch 03/16/20 at 0345, Until Mon03/16/20 at 1044, Routine FENTanyl PF 2019-05- No 25ug 25 mcg, [place] (SUBLIMAZE 0-26 10-26 Slow IV ity o f (PF)) 08:03: 11:25 Push, [place] injection 06 :02 Q4HPRN, Medical 25 mcg Starting Branch 03/16/20 at 0303, Until Mon03/16/20 at 0625, Routine, Pain (scale 7-10) ondansetron 2019-05 Yes 4mg 4 mg, Slow Univers (ZOFRAN 0-26 IV Push, ity of (PF)) 07:33: Q6HPRN, [place] injection 4 22 Starting Medi uriel mg Mon Branch 03/16/20 at 0233, Until Discontinu ed, Routine, Nausea and Vomiting (N/V) ondansetron 2019-05 Yes 4mg 4 mg, Slow Univers (ZOFRAN 0-26 IV Push, ity of (PF)) 07:33: Q6HPRN, [place] injection 4 22 Starting Medi uriel mg [facility] 03/16/20 at 0233, Until Discontinu ed, Routine, Nausea and Vomiting (N/V) ondansetron 2019-05- No 4mg 4 mg, Slow Univers (ZOFRAN 0-26 10-26 IV Push, ity of (PF)) 06:00: 06:01 ONCE, 1 [place] injection 4 00 :00 dose, [facility] Med ical mg 03/16/20 Branch at 0100, PIERRE morpHINE 2019-05- No 4mg 4 mg, Slow [place] injection 4 0-26 10-26 IV Push, ity of mg 06:00: 06:01 ONCE, 1 [place] 00 :00 dose, [facility] 03/16/20 Branch at 0100, STAT NaCl 0.9% 2019-05- No 30mL/kg at 999 [place] (NS) bolus 0-26 10-26 mL/hr, ity of infusion 06:00: 06:05 2,382 mL [place] 2,382 mL 00 :00 (30 mL/kg Medica l ?79.4 kg), Branch IV Piggyback, ONCE, 1 dose, [facility] 03/16/20 at 0100, STAT piperacilli 2019-05- No 3.375g 3.375 g, Univers n-tazobacta 0-26 10-26 IV ity of m (ZOSYN) 05:00: 08:32 Piggyback, [place] injection 00 :59 Q6H, First Medi uriel 3.375 g dose on Branch [facility] 03/16/20 at 0000, Until Discontinu ed, PIERRE
Re ason for Anti-Infec tive: Empiric Therapy for Suspected Infection< br>Empiric Therapy Site: Skin / Soft tissue
Duration of therapy: 72 hours KCL 20 mEq 2020-0 Yes [id number] 20meq Take 1 Univers tablet 9-17 tablet by ity of 00:00: mouth [place] 00 daily. [facility] Branch KCL 20 mEq 2020-0 Yes [id number] 20meq Take 1 Univers tablet 9-17 tablet by ity of 00:00: mouth [place] 00 daily. Medical Branch KCL 20 mEq 2020-0 Yes [id number] 20meq Take 1 Univers tablet 9-17 tablet by ity of 00:00: mouth [place] 00 daily. Medical Branch KCL 20 mEq 2020-0 Yes [id number] 20meq Take 1 Univers tablet 9-17 tablet by ity of 00:00: mouth [place] 00 daily. Medical Branch KCL 20 mEq 2020-0 Yes [id number] 20meq Take 1 Univers tablet 9-17 tablet by ity of 00:00: mouth [place] 00 daily. Medical Branch KCL 20 mEq 2020-0 Yes [id number] 20meq Take 1 Univers tablet 9-17 tablet by ity of 00:00: mouth [place] 00 daily. Medical Branch KCL 20 mEq 2020-0 Yes [id number] 20meq Take 1 Univers tablet 9-17 tablet by ity of 00:00: mouth [place] 00 daily. Medical Branch KCL 20 mEq 2020-0 Yes [id number] 20meq Take 1 Univers tablet 9-17 tablet by ity of 00:00: mouth [place] 00 daily. Medical Branch KCL 20 mEq 2020-0 Yes [id number] 20meq Take 1 [facility] tablet 9-17 tablet by ity of 00:00: mouth [place] 00 daily. Medical Branch KCL 20 mEq 2020-0 Yes [id number] 20meq Take 1 Univers tablet 9-17 tablet by ity of 00:00: mouth [place] 00 daily. Medical Branch KCL 20 mEq 2020-0 Yes [id number] 20meq Take 1 Univers tablet 9-17 tablet by ity of 00:00: mouth [place] 00 daily. Medical Branch KCL 20 mEq 2020-0 2020- No [id number] 20meq Take 1 [facility] tablet 9-17 -08 tablet by ity of 00:00: 00:00 mouth [place] 00 :00 daily. Medical Branch venlafaxine 2019-0 2019- No 75mg Take 75 mg [facility] 75 [...] [place] 43 :00 Medical Branch lisinopril 2020-0 2020- No 2.5mg Take 2.5 U nivers 2.5 mg 02-04- mg by ity of tablet 20:50: 00:00 mouth [place] 43 :00 daily. Medical Branch magnesium 2020-0 2020- No 296mL 296 mL, Uni vers citrate 02-04- Oral, ity of solution 18:00: 17:26 ONCE, 1 [place] 296 mL 00 :00 dose, Mon [facility] 02/05/20 at Branch 1300, Routine furosemide 2020-0 Yes 20mg 20 mg, IV [place] (LASIX) 02-04 Push, Q6H, ity of injection 17:00: First dose [place] 20 mg 00 (after Medical last Branch modificati on) on Mon02/05/20 at 1200, Until Discontinu ed, PIERRE KCL 2020-0 Yes 40meq 40 mEq, Univers (KLOR-CON -16 Oral, ity of M20) tablet 14:00: DAILY, [place] 40 mEq 00 First dose Medical on Mon [place] 02/05/20 at 0900, Until Discontinu ed, Routine aspirin 2020-0 Yes 81mg 81 mg, Univers chewable -16 Oral, ity of tablet 81 14:00: DAILY, [place] mg 00 First dose Medical on Mon [place] 02/05/20 at 0900, Until Discontinu ed, Routine atorvastati 2020-0 Yes 40mg 40 mg, Univ ers n (LIPITOR) -16 Oral, QHS, it y of tablet 40 02:00: First dose [place] mg 00 on Mon [facility] 02/04/20 at Branch 2100, Until Discontinu ed, Routine apixaban 5 2020-0 Yes [id number] 5mg Take 1 Unive rs mg tablet 9-16 tablet by ity o f 00:00: mouth 2 [place] 00 (two) Medical times [place] daily. Indication s: atrial fibrillati on clopidogreL 2020-0 Yes [id number] 75mg Take 1 Univers 75 mg 9-16 tablet by ity of tablet 00:00: mouth [place] 00 daily. Medical Branch nitroglycer 2019-[id number] 1 Univers in 0.4 mg 9-16 tablet ity of sublingual 00:00: under the [place] tablet 00 tongue Medical every 5 Branch (five) minutes as needed for Chest pain. pantoprazol 2020-0 Yes [id number] 20mg Take 1 U nivers e 20 mg EC 9-16 tablet by ity of tablet 00:00: mouth [place] 00 daily. Medical Branch lisinopriL 2020-0 Yes [id number] 2.5mg Take 1 Univers 2.5 mg 9-16 tablet by ity of tablet 00:00: mouth [place] 00 daily. Medical Branch levothyroxi 2020-0 Yes [id number] 50ug Take 1 Univers ne 50 mcg 9-16 tablet by ity o f tablet 00:00: mouth [place] 00 every Medical morning. Branch tamsulosin 2020-0 Yes [id number] .4mg Take 1 Univers 0.4 mg 24 9-16 capsule by ity of hr capsule 00:00: mouth 00 daily. Medical Branch venlafaxine 2020-0 Yes [id number] 75mg Take 1 [facility] 75 mg 9-16 tablet by ity of tablet 00:00: mouth 2 (two) Medical times Branch daily. glipiZIDE 5 2020-0 Yes [id number] 5mg Take 1 Univers mg tablet 9-16 tablet by ity o f 00:00: mouth (two) Medical times Branch daily before breakfast and dinner. metoprolol 2020-0 Yes [id number] 25mg Take 1 Univers succinate 9-16 tablet by ity o f XL 25 mg 24 00:00: mouth 2 [place] [facility] as hr tablet 00 (two) Medical times Branch daily. furosemide 2020-0 Yes [id number] 40mg Take 1 Univers 40 mg 9-16 tablet by ity of tablet 00:00: mouth [place] 00 every Medical morning Branch and evening. atorvastati 2020-0 Yes [id number] 40mg Take 1 U nivers n 40 mg 9-16 tablet by ity of tablet 00:00: mouth at [place] 00 bedtime. Medical Branch apixaban 5 2020-0 Yes [id number] 5mg Take 1 Unive rs mg tablet 9-16 tablet by ity o f 00:00: mouth 2 (two) Medical times Branch daily. Indication s: atrial fibrillati on clopidogreL 2020-0 Yes [id number] 75mg Take 1 Univers 75 mg 9-16 tablet by ity of tablet 00:00: mouth [place] 00 daily. Medical Branch nitroglycer 2020-[id number] 1 Univers in 0.4 mg 9-16 tablet ity of sublingual 00:00: under the [place] tablet 00 tongue Medical every 5 Branch (five) minutes as needed for Chest pain. pantoprazol 2020-0 Yes [id number] 20mg Take 1 U nivers e 20 mg EC 9-16 tablet by ity of tablet 00:00: mouth [place] 00 daily. Medical Branch lisinopriL 2020-0 Yes [id number] 2.5mg Take 1 Univers 2.5 mg 9-16 tablet by ity of tablet 00:00: mouth [place] 00 daily. Medical Branch levothyroxi 2020-0 Yes [id number] 50ug Take 1 Univers ne 50 mcg 9-16 tablet by ity o f tablet 00:00: mouth [place] 00 every Medical morning. Branch tamsulosin 2020-0 Yes [id number] .4mg Take 1 Univers 0.4 mg 24 9-16 capsule by ity of hr capsule 00:00: mouth [place] 00 daily. Medical Branch venlafaxine 2020-0 Yes [id number] 75mg Take 1 Univers 75 mg 9-16 tablet by ity of tablet 00:00: mouth 2 [place] 00 (two) Medical times Branch daily. glipiZIDE 5 2020-0 Yes [id number] 5mg Take 1 Univers mg tablet 9-16 tablet by ity o f 00:00: mouth 2 [place] (two) Medical times Branch daily before breakfast and dinner. metoprolol 2020-0 Yes [id number] 25mg Take 1 Univers succinate 9-16 tablet by ity o f XL 25 mg 24 00:00: mouth 2 [place] [facility] as hr tablet 00 (two) Medical times Branch daily. furosemide 2020-0 Yes [id number] 40mg Take 1 Univers 40 mg 9-16 tablet by ity of tablet 00:00: mouth [place] 00 every Medical morning Branch and evening. atorvastati 2020-0 Yes [id number] 40mg Take 1 U nivers n 40 mg 9-16 tablet by ity of tablet 00:00: mouth at [place] 00 bedtime. Medical Branch apixaban 5 2020-0 Yes [id number] 5mg Take 1 Unive rs mg tablet 9-16 tablet by ity o f 00:00: mouth 2 [place] (two) Medical times Branch daily. Indication s: atrial fibrillati on clopidogreL 2020-0 Yes [id number] 75mg Take 1 Univers 75 mg 9-16 tablet by ity of tablet 00:00: mouth [place] 00 daily. Medical Branch nitroglycer 2020-[id number] 1 Univers in 0.4 mg 9-16 tablet ity of sublingual 00:00: under the [place] tablet 00 tongue Medical every 5 Branch (five) minutes as needed for Chest pain. pantoprazol 2020-0 Yes [id number] 20mg Take 1 U nivers e 20 mg EC 9-16 tablet by ity of tablet 00:00: mouth [place] 00 daily. Medical Branch lisinopriL 2020-0 Yes [id number] 2.5mg Take 1 Univers 2.5 mg 9-16 tablet by ity of tablet 00:00: mouth [place] 00 daily. Medical Branch levothyroxi 2020-0 Yes [id number] 50ug Take 1 Univers ne 50 mcg 9-16 tablet by ity o f tablet 00:00: mouth [place] 00 every Medical morning. Branch tamsulosin 2020-0 Yes [id number] .4mg Take 1 Univers 0.4 mg 24 9-16 capsule by ity of hr capsule 00:00: mouth [place] 00 daily. Medical Branch venlafaxine 2020-0 Yes [id number] 75mg Take 1 Univers 75 mg 9-16 tablet by ity of tablet 00:00: mouth 2 [place] 00 (two) Medical times Branch daily. glipiZIDE 5 2020-0 Yes [id number] 5mg Take 1 Univers mg tablet 9-16 tablet by ity o f 00:00: mouth 2 [place] 00 (two) Medical times Branch daily before breakfast and dinner. metoprolol 2020-0 Yes [id number] 25mg Take 1 Univers succinate 9-16 tablet by ity o f XL 25 mg 24 00:00: mouth 2 [place] hr tablet 00 (two) Medical times Branch daily. furosemide 2020-0 Yes [id number] 40mg Take 1 Univers 40 mg 9-16 tablet by ity of tablet 00:00: mouth [place] 00 every Medical morning Branch and evening. atorvastati 2020-0 Yes [id number] 40mg Take 1 U nivers n 40 mg 9-16 tablet by ity of tablet 00:00: mouth at [place] 00 bedtime. Medical Branch apixaban 5 2020-0 Yes [id number] 5mg Take 1 Unive rs mg tablet 9-16 tablet by ity o f 00:00: mouth 2 [place] 00 (two) Medical times Branch daily. Indication s: atrial fibrillati on clopidogreL 2020-0 Yes [id number] 75mg Take 1 Univers 75 mg 9-16 tablet by ity of tablet 00:00: mouth [place] 00 daily. Medical Branch nitroglycer 2020-[id number] 1 Univers in 0.4 mg 9-16 tablet ity of sublingual 00:00: under the [place] tablet 00 tongue Medical every 5 Branch (five) minutes as needed for Chest pain. pantoprazol 2020-0 Yes [id number] 20mg Take 1 U nivers e 20 mg EC 9-16 tablet by ity of tablet 00:00: mouth [place] 00 daily. Medical Branch lisinopriL 2019-0 Yes [id number] 2.5mg Take 1 Univers 2.5 mg 9-16 tablet by ity of tablet 00:00: mouth [place] 00 daily. Medical Branch levothyroxi 2019-0 Yes [id number] 50ug Take 1 Univers ne 50 mcg 9-16 tablet by ity o f tablet 00:00: mouth [place] 00 every Medical morning. Branch tamsulosin 2019-0 Yes [id number] .4mg Take 1 Univers 0.4 mg 24 9-16 capsule by ity of hr capsule 00:00: mouth [place] 00 daily. Medical Branch venlafaxine 2019-0 Yes [id number] 75mg Take 1 [facility] 75 mg 9-16 tablet by ity of tablet 00:00: mouth 2 [place] 00 (two) Medical times Branch daily. glipiZIDE 5 2019-0 Yes [id number] 5mg Take 1 Univers mg tablet 9-16 tablet by ity o f 00:00: mouth 2 [place] 00 (two) Medical times Branch daily before breakfast and dinner. metoprolol 2020-0 Yes [id number] 25mg Take 1 Univers succinate 9-16 tablet by ity o f XL 25 mg 24 00:00: mouth 2 [place] hr tablet 00 (two) Medical times Branch daily. furosemide 2020-0 Yes [id number] 40mg Take 1 Univers 40 mg 9-16 tablet by ity of tablet 00:00: mouth [place] 00 every Medical morning Branch and evening. atorvastati 2020-0 Yes [id number] 40mg Take 1 U nivers n 40 mg 9-16 tablet by ity of tablet 00:00: mouth at [place] 00 bedtime. Medical Branch apixaban 5 2020-0 Yes [id number] 5mg Take 1 Unive rs mg tablet 9-16 tablet by ity o f 00:00: mouth 2 [place] 00 (two) Medical times Branch daily. Indication s: atrial fibrillati on clopidogreL 2020-0 Yes [id number] 75mg Take 1 Univers 75 mg 9-16 tablet by ity of tablet 00:00: mouth [place] 00 daily. Medical Branch nitroglycer 2020-[id number] 1 Univers in 0.4 mg 9-16 tablet ity of sublingual 00:00: under the [place] tablet 00 tongue Medical every 5 Branch (five) minutes as needed for Chest pain. pantoprazol 2020-0 Yes [id number] 20mg Take 1 U nivers e 20 mg EC 9-16 tablet by ity of tablet 00:00: mouth [place] 00 daily. Medical Branch lisinopriL 2019-0 Yes [id number] 2.5mg Take 1 Univers 2.5 mg 9-16 tablet by ity of tablet 00:00: mouth [place] 00 daily. Medical Branch levothyroxi 2020-0 Yes [id number] 50ug Take 1 Univers ne 50 mcg 9-16 tablet by ity o f tablet 00:00: mouth [place] 00 every Medical morning. Branch tamsulosin 2019-0 Yes [id number] .4mg Take 1 Univers 0.4 mg 24 9-16 capsule by ity of hr capsule 00:00: mouth [place] 00 daily. Medical Branch venlafaxine 2019-0 Yes [id number] 75mg Take 1 [facility] 75 mg 9-16 tablet by ity of tablet 00:00: mouth 2 [place] 00 (two) Medical times Branch daily. glipiZIDE 5 2020-0 Yes [id number] 5mg Take 1 Univers mg tablet 9-16 tablet by ity o f 00:00: mouth 2 [place] 00 (two) Medical times Branch daily before breakfast and dinner. metoprolol 2020-0 Yes [id number] 25mg Take 1 [facility] succinate 9-16 tablet by ity o f XL 25 mg 24 00:00: mouth 2 [place] tablet 00 (two) Medical times Branch daily. furosemide 2020-0 Yes [id number] 40mg Take 1 [facility] 40 mg 9-16 tablet by ity of tablet 00:00: mouth [place] 00 every Medical morning Branch and evening. atorvastati 2020-0 Yes [id number] 40mg Take 1 U nivers n 40 mg 9-16 tablet by ity of tablet 00:00: mouth at [place] 00 bedtime. Medical Branch apixaban 5 2019-0 Yes [id number] 5mg Take 1 Unive rs mg tablet 9-16 tablet by ity o f 00:00: mouth 2 (two) Medical times Branch daily. Indication s: atrial fibrillati on clopidogreL 2019-0 Yes [id number] 75mg Take 1 [facility] 75 mg 9-16 tablet by ity of tablet 00:00: mouth [place] 00 daily. Medical Branch nitroglycer 2019-[id number] 1 Univers in 0.4 mg 9-16 tablet ity of sublingual 00:00: under the [place] tablet 00 tongue Medical every 5 Branch (five) minutes as needed for Chest pain. pantoprazol 2019-0 Yes [id number] 20mg Take 1 U nivers e 20 mg EC 9-16 tablet by ity of tablet 00:00: mouth [place] 00 daily. Medical Branch lisinopriL 2019-0 Yes [id number] 2.5mg Take 1 Univers 2.5 mg 9-16 tablet by ity of tablet 00:00: mouth [place] 00 daily. Medical Branch levothyroxi 2019-0 Yes [id number] 50ug Take 1 Univers ne 50 mcg 9-16 tablet by ity o f tablet 00:00: mouth [place] 00 every Medical morning. Branch tamsulosin 2019-0 Yes [id number] .4mg Take 1 Univers 0.4 mg 24 9-16 capsule by ity of hr capsule 00:00: mouth [place] 00 daily. Medical Branch venlafaxine 2019-0 Yes [id number] 75mg Take 1 [facility] 75 mg 9-16 tablet by ity of tablet 00:00: mouth (two) Medical times Branch daily. glipiZIDE 5 2019-0 Yes [id number] 5mg Take 1 [facility] mg tablet 9-16 tablet by ity o f 00:00: mouth 2 00 (two) Medical times Branch daily before breakfast and dinner. metoprolol 2019-0 Yes [id number] 25mg Take 1 [facility] succinate 9-16 tablet by ity o f XL 25 mg 24 00:00: mouth 2 [place] tablet 00 (two) Medical times Branch daily. furosemide 2020-0 Yes [id number] 40mg Take 1 [facility] 40 mg 9-16 tablet by ity of tablet 00:00: mouth [place] 00 every Medical morning Branch and evening. atorvastati 2020-0 Yes [id number] 40mg Take 1 U nivers n 40 mg 9-16 tablet by ity of tablet 00:00: mouth at [place] 00 bedtime. Medical Branch apixaban 5 2020-0 Yes [id number] 5mg Take 1 Unive rs mg tablet 9-16 tablet by ity o f 00:00: mouth 2 (two) Medical times Branch daily. Indication s: atrial fibrillati on clopidogreL 2020-0 Yes [id number] 75mg Take 1 [facility] 75 mg 9-16 tablet by ity of tablet 00:00: mouth [place] 00 daily. Medical Branch nitroglycer 2020-[id number] 1 Univers in 0.4 mg 9-16 tablet ity of sublingual 00:00: under the [place] tablet 00 tongue Medical every 5 Branch (five) minutes as needed for Chest pain. pantoprazol 2020-0 Yes [id number] 20mg Take 1 U nivers e 20 mg EC 9-16 tablet by ity of tablet 00:00: mouth [place] 00 daily. Medical Branch lisinopriL 2020-0 Yes [id number] 2.5mg Take 1 Univers 2.5 mg 9-16 tablet by ity of tablet 00:00: mouth [place] 00 daily. Medical Branch levothyroxi 2020-0 Yes [id number] 50ug Take 1 Univers ne 50 mcg 9-16 tablet by ity o f tablet 00:00: mouth [place] 00 every Medical morning. Branch tamsulosin 2020-0 Yes [id number] .4mg Take 1 Univers 0.4 mg 24 9-16 capsule by ity of hr capsule 00:00: mouth [place] 00 daily. Medical Branch venlafaxine 2020-0 Yes [id number] 75mg Take 1 [facility] 75 mg 9-16 tablet by ity of tablet 00:00: mouth 2 [place] (two) Medical times Branch daily. glipiZIDE 5 2020-0 Yes [id number] 5mg Take 1 Univers mg tablet 9-16 tablet by ity o f 00:00: mouth 2 [place] (two) Medical times Branch daily before breakfast and dinner. metoprolol 2020-0 Yes [id number] 25mg Take 1 Univers succinate 9-16 tablet by ity o f XL 25 mg 24 00:00: mouth 2 [place] tablet 00 (two) Medical times Branch daily. furosemide 2020-0 Yes [id number] 40mg Take 1 [facility] 40 mg 9-16 tablet by ity of tablet 00:00: mouth [place] 00 every Medical morning Branch and evening. atorvastati 2020-0 Yes [id number] 40mg Take 1 U nivers n 40 mg 9-16 tablet by ity of tablet 00:00: mouth at [place] 00 bedtime. Medical Branch apixaban 5 2020-0 Yes [id number] 5mg Take 1 Unive rs mg tablet 9-16 tablet by ity o f 00:00: mouth 2 [place] 00 (two) Medical times Branch daily. Indication s: atrial fibrillati on clopidogreL 2020-0 Yes [id number] 75mg Take 1 [facility] 75 mg 9-16 tablet by ity of tablet 00:00: mouth [place] 00 daily. Medical Branch nitroglycer 2020-[id number] 1 [facility] in 0.4 mg 9-16 tablet ity of sublingual 00:00: under the [place] tablet 00 tongue Medical every 5 Branch (five) minutes as needed for Chest pain. pantoprazol 2020-0 Yes [id number] 20mg Take 1 U nivers e 20 mg EC 9-16 tablet by ity of tablet 00:00: mouth [place] 00 daily. Medical Branch lisinopriL 2019-0 Yes [id number] 2.5mg Take 1 Univers 2.5 mg 9-16 tablet by ity of tablet 00:00: mouth [place] 00 daily. Medical Branch levothyroxi 2020-0 Yes [id number] 50ug Take 1 Univers ne 50 mcg 9-16 tablet by ity o f tablet 00:00: mouth [place] 00 every Medical morning. Branch tamsulosin 2020-0 Yes [id number] .4mg Take 1 Univers 0.4 mg 24 9-16 capsule by ity of hr capsule 00:00: mouth [place] 00 daily. Medical Branch venlafaxine 2020-0 Yes [id number] 75mg Take 1 [facility] 75 mg 9-16 tablet by ity of tablet 00:00: mouth 2 [place] 00 (two) Medical times Branch daily. glipiZIDE 5 2020-0 Yes [id number] 5mg Take 1 [facility] mg tablet 9-16 tablet by ity o f 00:00: mouth 2 [place] 00 (two) Medical times Branch daily before breakfast and dinner. metoprolol 2020-0 Yes [id number] 25mg Take 1 [facility] succinate 9-16 tablet by ity o f XL 25 mg 24 00:00: mouth 2 [place] tablet 00 (two) Medical times Branch daily. furosemide 2020-0 Yes [id number] 40mg Take 1 [facility] 40 mg 9-16 tablet by ity of tablet 00:00: mouth [place] 00 every Medical morning Branch and evening. atorvastati 2020-0 Yes [id number] 40mg Take 1 U nivers n 40 mg 9-16 tablet by ity of tablet 00:00: mouth at [place] 00 bedtime. Medical Branch apixaban 5 2019-0 Yes [id number] 5mg Take 1 [facility] mg tablet 9-16 tablet by ity o f 00:00: mouth 2 [place] 00 (two) Medical times Branch daily. Indication s: atrial fibrillati on clopidogreL 2019-0 Yes [id number] 75mg Take 1 [facility] 75 mg 9-16 tablet by ity of tablet 00:00: mouth [place] 00 daily. Medical Branch nitroglycer 2019-[id number] 1 [facility] in 0.4 mg 9-16 tablet ity of sublingual 00:00: under the [place] tablet 00 tongue Medical every 5 Branch (five) minutes as needed for Chest pain. pantoprazol 2020-0 Yes [id number] 20mg Take 1 [facility] nivers e 20 mg EC 9-16 tablet by ity of tablet 00:00: mouth [place] 00 daily. Medical Branch lisinopriL 2019-0 Yes [id number] 2.5mg Take 1 [facility] 2.5 mg 9-16 tablet by ity of tablet 00:00: mouth [place] 00 daily. Medical Branch levothyroxi 2020-0 Yes [id number] 50ug Take 1 [facility] ne 50 mcg 9-16 tablet by ity o f tablet 00:00: mouth [place] 00 every Medical morning. Branch tamsulosin 2020-0 Yes [id number] .4mg Take 1 [facility] 0.4 mg 24 9-16 capsule by ity of hr capsule 00:00: mouth [place] 00 daily. Medical Branch venlafaxine 2020-0 Yes [id number] 75mg Take 1 [facility] 75 mg 9-16 tablet by ity of tablet 00:00: mouth 2 [place] 00 (two) Medical times Branch daily. glipiZIDE 5 2020-0 Yes [id number] 5mg Take 1 [facility] mg tablet 9-16 tablet by ity o f 00:00: mouth 2 [place] 00 (two) Medical times Branch daily before breakfast and dinner. metoprolol 2020-0 Yes [id number] 25mg Take 1 [facility] succinate 9-16 tablet by ity o f XL 25 mg 24 00:00: mouth 2 [place] tablet 00 (two) Medical times Branch daily. furosemide 2020-0 Yes [id number] 40mg Take 1 [facility] 40 mg 9-16 tablet by ity of tablet 00:00: mouth [place] 00 every Medical morning Branch and evening. atorvastati 2020-0 Yes [id number] 40mg Take 1 [facility] nivers n 40 mg 9-16 tablet by ity of tablet 00:00: mouth at [place] 00 bedtime. Medical Branch apixaban 5 2019-0 Yes [id number] 5mg Take 1 [facility] mg tablet 9-16 tablet by ity o f 00:00: mouth 2 [place] (two) Medical times Branch daily. Indication s: atrial fibrillati on clopidogreL 2020-0 Yes [id number] 75mg Take 1 [facility] 75 mg 9-16 tablet by ity of tablet 00:00: mouth [place] 00 daily. Medical Branch nitroglycer 2020-[id number] 1 [facility] in 0.4 mg 9-16 tablet ity of sublingual 00:00: under the [place] tablet 00 tongue Medical every 5 Branch (five) minutes as needed for Chest pain. pantoprazol 2020-0 Yes [id number] 20mg Take 1 [facility] nivers e 20 mg EC 9-16 tablet by ity of tablet 00:00: mouth [place] 00 daily. Medical Branch lisinopriL 2020-0 Yes [id number] 2.5mg Take 1 [facility] 2.5 mg 9-16 tablet by ity of tablet 00:00: mouth [place] 00 daily. Medical Branch levothyroxi 2020-0 Yes [id number] 50ug Take 1 [facility] ne 50 mcg 9-16 tablet by ity o f tablet 00:00: mouth [place] 00 every Medical morning. Branch tamsulosin 2020-0 Yes [id number] .4mg Take 1 [facility] 0.4 mg 24 9-16 capsule by ity of hr capsule 00:00: mouth [place] 00 daily. Medical Branch venlafaxine 2020-0 Yes [id number] 75mg Take 1 [facility] 75 mg 9-16 tablet by ity of tablet 00:00: mouth 2 [place] 00 (two) Medical times Branch daily. glipiZIDE 5 2020-0 Yes [id number] 5mg Take 1 [facility] mg tablet 9-16 tablet by ity o f 00:00: mouth 2 [place] 00 (two) Medical times Branch daily before breakfast and dinner. metoprolol 2020-0 Yes [id number] 25mg Take 1 [facility] succinate 9-16 tablet by ity o f XL 25 mg 24 00:00: mouth 2 [place] tablet 00 (two) Medical times Branch daily. furosemide 2020-0 Yes [id number] 40mg Take 1 [facility] 40 mg 9-16 tablet by ity of tablet 00:00: mouth [place] 00 every Medical morning Branch and evening. atorvastati 2020-0 Yes [id number] 40mg Take 1 [facility] nivers n 40 mg 9-16 tablet by ity of tablet 00:00: mouth at [place] 00 bedtime. Medical Branch apixaban 5 2019-0 Yes [id number] 5mg Take 1 [facility] mg tablet 9-16 tablet by ity o f 00:00: mouth 2 (two) Medical times Branch daily. Indication s: atrial fibrillati on clopidogreL 2019-0 Yes [id number] 75mg Take 1 [facility] 75 mg 9-16 tablet by ity of tablet 00:00: mouth [place] 00 daily. Medical Branch nitroglycer 2020-[id number] 1 [facility] in 0.4 mg 9-16 tablet ity of sublingual 00:00: under the [place] tablet 00 tongue Medical every 5 Branch (five) minutes as needed for Chest pain. pantoprazol 2020-0 Yes [id number] 20mg Take 1 [facility] nivers e 20 mg EC 9-16 tablet by ity of tablet 00:00: mouth [place] 00 daily. Medical Branch lisinopriL 2019-0 Yes [id number] 2.5mg Take 1 [facility] 2.5 mg 9-16 tablet by ity of tablet 00:00: mouth [place] 00 daily. Medical Branch levothyroxi 2020-0 Yes [id number] 50ug Take 1 [facility] ne 50 mcg 9-16 tablet by ity o f tablet 00:00: mouth [place] 00 every Medical morning. Branch tamsulosin 2020-0 Yes [id number] .4mg Take 1 [facility] 0.4 mg 24 9-16 capsule by ity of hr capsule 00:00: mouth [place] 00 daily. Medical Branch venlafaxine 2020-0 Yes [id number] 75mg Take 1 [facility] 75 mg 9-16 tablet by ity of tablet 00:00: mouth 2 [place] 00 (two) Medical times Branch daily. glipiZIDE 5 2020-0 Yes [id number] 5mg Take 1 [facility] mg tablet 9-16 tablet by ity o f 00:00: mouth 2 [place] 00 (two) Medical times Branch daily before breakfast and dinner. metoprolol 2020-0 Yes [id number] 25mg Take 1 [facility] succinate 9-16 tablet by ity o f XL 25 mg 24 00:00: mouth 2 [place] 00 (two) Medical times Branch daily. furosemide 2020-0 Yes [id number] 40mg Take 1 [facility] 40 mg 9-16 tablet by ity of tablet 00:00: mouth [place] 00 every Medical morning Branch and evening. atorvastati 2020-0 Yes [id number] 40mg Take 1 [facility] nivers n 40 mg 9-16 tablet by ity of tablet 00:00: mouth at [place] 00 bedtime. Medical Branch clopidogreL 2020-0 Yes [id number] 75mg Take 1 [facility] 75 mg 9-16 tablet by ity of tablet 00:00: mouth [place] 00 daily. Medical Branch nitroglycer 2020-[id number] 1 [facility] in 0.4 mg 9-16 tablet ity of sublingual 00:00: under the [place] tablet 00 tongue Medical every 5 Branch (five) minutes as needed for Chest pain. levothyroxi 2020-0 Yes [id number] 50ug Take 1 [facility] ne 50 mcg 9-16 tablet by ity o f tablet 00:00: mouth [place] 00 every Medical morning. Branch tamsulosin 2020-0 Yes [id number] .4mg Take 1 [facility] 0.4 mg 24 9-16 capsule by ity of hr capsule 00:00: mouth [place] 00 daily. Medical Branch venlafaxine 2020-0 Yes [id number] 75mg Take 1 [facility] 75 mg 9-16 tablet by ity of tablet 00:00: mouth 2 [place] 00 (two) Medical times Branch daily. glipiZIDE 5 2020-0 Yes [id number] 5mg Take 1 [facility] mg tablet 9-16 tablet by ity o f 00:00: mouth 2 (two) Medical times Branch daily before breakfast and dinner. furosemide 2020-0 Yes [id number] 40mg Take 1 [facility] 40 mg 9-16 tablet by ity of tablet 00:00: mouth [place] 00 every Medical morning Branch and evening. clopidogreL 2020-0 Yes [id number] 75mg Take 1 [facility] 75 mg 9-16 tablet by ity of tablet 00:00: mouth [place] 00 daily. Medical Branch nitroglycer 2020-[id number] 1 [facility] in 0.4 mg 9-16 tablet ity of sublingual 00:00: under the [place] tablet 00 tongue Medical every 5 Branch (five) minutes as needed for Chest pain. levothyroxi 2020-0 Yes [id number] 50ug Take 1 [facility] ne 50 mcg 9-16 tablet by ity o f tablet 00:00: mouth [place] 00 every Medical morning. Branch tamsulosin 2020-0 Yes [id number] .4mg Take 1 [facility] 0.4 mg 24 9-16 capsule by ity of hr capsule 00:00: mouth [place] 00 daily. Medical Branch venlafaxine 2020-0 Yes [id number] 75mg Take 1 [facility] 75 mg 9-16 tablet by ity of tablet 00:00: mouth 2 (two) Medical times Branch daily. glipiZIDE 5 2020-0 Yes [id number] 5mg Take 1 [facility] mg tablet 9-16 tablet by ity o f 00:00: mouth 2 (two) Medical times Branch daily before breakfast and dinner. furosemide 2020-0 Yes [id number] 40mg Take 1 [facility] 40 mg 9-16 tablet by ity of tablet 00:00: mouth [place] 00 every Medical morning Branch and evening. clopidogreL 2020-0 Yes [id number] 75mg Take 1 [facility] 75 mg 9-16 tablet by ity of tablet 00:00: mouth [place] 00 daily. Medical Branch nitroglycer 2020-[id number] 1 [facility] in 0.4 mg 9-16 tablet ity of sublingual 00:00: under the [place] tablet 00 tongue Medical every 5 Branch (five) minutes as needed for Chest pain. levothyroxi 2020-0 Yes [id number] 50ug Take 1 [facility] ne 50 mcg 9-16 tablet by ity o f tablet 00:00: mouth [place] 00 every Medical morning. Branch tamsulosin 2020-0 Yes [id number] .4mg Take 1 [facility] 0.4 mg 24 9-16 capsule by ity of hr capsule 00:00: mouth [place] 00 daily. Medical Branch venlafaxine 2020-0 Yes [id number] 75mg Take 1 [facility] 75 mg 9-16 tablet by ity of tablet 00:00: mouth 2 00 (two) Medical times Branch daily. glipiZIDE 5 2020-0 Yes [id number] 5mg Take 1 [facility] mg tablet 9-16 tablet by ity o f 00:00: mouth 2 00 (two) Medical times Branch daily before breakfast and dinner. furosemide 2020-0 Yes [id number] 40mg Take 1 [facility] 40 mg 9-16 tablet by ity of tablet 00:00: mouth [place] 00 every Medical morning Branch and evening. clopidogreL 2020-0 Yes [id number] 75mg Take 1 [facility] 75 mg 9-16 tablet by ity of tablet 00:00: mouth [place] 00 daily. Medical Branch nitroglycer 2020-[id number] 1 [facility] in 0.4 mg 9-16 tablet ity of sublingual 00:00: under the [place] tablet 00 tongue Medical every 5 Branch (five) minutes as needed for Chest pain. levothyroxi 2020-0 Yes [id number] 50ug Take 1 [facility] ne 50 mcg 9-16 tablet by ity o f tablet 00:00: mouth [place] 00 every Medical morning. Branch tamsulosin 2020-0 Yes [id number] .4mg Take 1 [facility] 0.4 mg 24 9-16 capsule by ity of hr capsule 00:00: mouth [place] 00 daily. Medical Branch venlafaxine 2020-0 Yes [id number] 75mg Take 1 [facility] 75 mg 9-16 tablet by ity of tablet 00:00: mouth 00 (two) Medical times Branch daily. glipiZIDE 5 2020-0 Yes [id number] 5mg Take 1 [facility] mg tablet 9-16 tablet by ity o f 00:00: mouth 2 (two) Medical times Branch daily before breakfast and dinner. furosemide 2020-0 Yes [id number] 40mg Take 1 [facility] 40 mg 9-16 tablet by ity of tablet 00:00: mouth [place] 00 every Medical morning Branch and evening. clopidogreL 2020-0 Yes [id number] 75mg Take 1 [facility] 75 mg 9-16 tablet by ity of tablet 00:00: mouth [place] 00 daily. Medical Branch nitroglycer 2020-[id number] 1 [facility] in 0.4 mg 9-16 tablet ity of sublingual 00:00: under the [place] tablet 00 tongue Medical every 5 Branch (five) minutes as needed for Chest pain. levothyroxi 2020-0 Yes [id number] 50ug Take 1 [facility] ne 50 mcg 9-16 tablet by ity o f tablet 00:00: mouth [place] 00 every Medical morning. Branch tamsulosin 2020-0 Yes [id number] .4mg Take 1 [facility] 0.4 mg 24 9-16 capsule by ity of hr capsule 00:00: mouth [place] 00 daily. Medical Branch venlafaxine 2020-0 Yes [id number] 75mg Take 1 [facility] 75 mg 9-16 tablet by ity of tablet 00:00: mouth 2 (two) Medical times Branch daily. glipiZIDE 5 2020-0 Yes [id number] 5mg Take 1 [facility] mg tablet 9-16 tablet by ity o f 00:00: mouth 2 (two) Medical times Branch daily before breakfast and dinner. furosemide 2020-0 Yes [id number] 40mg Take 1 [facility] 40 mg 9-16 tablet by ity of tablet 00:00: mouth [place] 00 every Medical morning Branch and evening. nitroglycer 2020-[id number] 1 [facility] in 0.4 mg 9-16 tablet ity of sublingual 00:00: under the [place] tablet 00 tongue Medical every 5 Branch (five) minutes as needed for Chest pain. levothyroxi 2020-0 Yes [id number] 50ug Take 1 [facility] ne 50 mcg 9-16 tablet by ity o f tablet 00:00: mouth [place] 00 every Medical morning. Branch tamsulosin 2020-0 Yes [id number] .4mg Take 1 [facility] 0.4 mg 24 9-16 capsule by ity of hr capsule 00:00: mouth [place] 00 daily. Medical Branch venlafaxine 2020-0 Yes [id number] 75mg Take 1 [facility] 75 mg 9-16 tablet by ity of tablet 00:00: mouth 2 (two) Medical times Branch daily. glipiZIDE 5 2020-0 Yes [id number] 5mg Take 1 [facility] mg tablet 9-16 tablet by ity o f 00:00: mouth 2 [place] 00 (two) Medical times Branch daily before breakfast and dinner. furosemide 2020-0 Yes [id number] 40mg Take 1 [facility] 40 mg 9-16 tablet by ity of tablet 00:00: mouth [place] 00 every Medical morning Branch and evening. nitroglycer 2020-[id number] 1 [facility] in 0.4 mg 9-16 tablet ity of sublingual 00:00: under the [place] tablet 00 tongue Medical every 5 Branch (five) minutes as needed for Chest pain. levothyroxi 2020-0 Yes [id number] 50ug Take 1 [facility] ne 50 mcg 9-16 tablet by ity o f tablet 00:00: mouth [place] 00 every Medical morning. Branch tamsulosin 2020-0 Yes [id number] .4mg Take 1 [facility] 0.4 mg 24 9-16 capsule by ity of hr capsule 00:00: mouth [place] 00 daily. Medical Branch venlafaxine 2020-0 Yes [id number] 75mg Take 1 [facility] 75 mg 9-16 tablet by ity of tablet 00:00: mouth 2 [place] 00 (two) Medical times Branch daily. glipiZIDE 5 2020-0 Yes [id number] 5mg Take 1 [facility] mg tablet 9-16 tablet by ity o f 00:00: mouth 2 (two) Medical times Branch daily before breakfast and dinner. furosemide 2020-0 Yes [id number] 40mg Take 1 [facility] 40 mg 9-16 tablet by ity of tablet 00:00: mouth [place] 00 every Medical morning Branch and evening. levothyroxi 2020-0 Yes [id number] 50ug Take 1 [facility] ne 50 mcg 9-16 tablet by ity o f tablet 00:00: mouth [place] 00 every Medical morning. Branch tamsulosin 2020-0 Yes [id number] .4mg Take 1 [facility] 0.4 mg 24 9-16 capsule by ity of hr capsule 00:00: mouth [place] 00 daily. Medical Branch venlafaxine 2020-0 Yes [id number] 75mg Take 1 [facility] 75 mg 9-16 tablet by ity of tablet 00:00: mouth 2 [place] 00 (two) Medical times Branch daily. glipiZIDE 5 2020-0 Yes [id number] 5mg Take 1 [facility] mg tablet 9-16 tablet by ity o f 00:00: mouth (two) Medical times Branch daily before breakfast and dinner. furosemide 2020-0 Yes [id number] 40mg Take 1 [facility] 40 mg 9-16 tablet by ity of tablet 00:00: mouth [place] 00 every Medical morning Branch and evening. levothyroxi 2020-0 Yes [id number] 50ug Take 1 [facility] ne 50 mcg 9-16 tablet by ity o f tablet 00:00: mouth [place] 00 every Medical morning. Branch venlafaxine 2020-0 Yes [id number] 75mg Take 1 [facility] 75 mg 9-16 tablet by ity of tablet 00:00: mouth (two) Medical times Branch daily. glipiZIDE 5 2020-0 Yes [id number] 5mg Take 1 [facility] mg tablet 9-16 tablet by ity o f 00:00: mouth (two) Medical times Branch daily before breakfast and dinner. furosemide 2020-0 Yes [id number] 40mg Take 1 [facility] 40 mg 9-16 tablet by ity of tablet 00:00: mouth [place] 00 every Medical morning Branch and evening. levothyroxi 2020-0 Yes [id number] 50ug Take 1 [facility] ne 50 mcg 9-16 tablet by ity o f tablet 00:00: mouth 00 every Medical morning. Branch venlafaxine 2020-0 Yes [id number] 75mg Take 1 [facility] 75 mg 9-16 tablet by ity of tablet 00:00: mouth (two) Medical times Branch daily. glipiZIDE 5 2020-0 Yes [id number] 5mg Take 1 [facility] mg tablet 9-16 tablet by ity o f 00:00: mouth (two) Medical times Branch daily before breakfast and dinner. furosemide 2020-0 Yes [id number] 40mg Take 1 [facility] 40 mg 9-16 tablet by ity of tablet 00:00: mouth [place] 00 every Medical morning Branch and evening. levothyroxi 2020-0 Yes [id number] 50ug Take 1 [facility] ne 50 mcg 9-16 tablet by ity o f tablet 00:00: mouth [place] 00 every Medical morning. Branch venlafaxine 2020-0 Yes [id number] 75mg Take 1 [facility] 75 mg 9-16 tablet by ity of tablet 00:00: mouth 2 (two) Medical times Branch daily. glipiZIDE 5 2020-0 Yes [id number] 5mg Take 1 [facility] mg tablet 9-16 tablet by ity o f 00:00: mouth (two) Medical times Branch daily before breakfast and dinner. furosemide 2020-0 Yes [id number] 40mg Take 1 [facility] 40 mg 9-16 tablet by ity of tablet 00:00: mouth 00 every Medical morning Branch and evening. levothyroxi 2020-0 Yes [id number] 50ug Take 1 [facility] ne 50 mcg 9-16 tablet by ity o f tablet 00:00: mouth 00 every Medical morning. Branch venlafaxine 2020-0 Yes [id number] 75mg Take 1 [facility] 75 mg 9-16 tablet by ity of tablet 00:00: mouth (two) Medical times Branch daily. glipiZIDE 5 2020-0 Yes [id number] 5mg Take 1 [facility] mg tablet 9-16 tablet by ity o f 00:00: mouth ([facility]) Medical times Branch daily before breakfast and dinner. furosemide 2020-0 Yes [id number] 40mg Take 1 [facility] 40 mg 9-16 tablet by ity of tablet 00:00: mouth 00 every Medical morning Branch and evening. levothyroxi 2020-0 Yes [id number] 50ug Take 1 [facility] ne 50 mcg 9-16 tablet by ity o f tablet 00:00: mouth 00 every Medical morning. Branch venlafaxine 2020-0 Yes [id number] 75mg Take 1 [facility] 75 mg 9-16 tablet by ity of tablet 00:00: mouth (two) Medical times Branch daily. glipiZIDE 5 2020-0 Yes [id number] 5mg Take 1 [facility] mg tablet 9-16 tablet by ity o f 00:00: mouth (two) Medical times Branch daily before breakfast and dinner. furosemide 2020-0 Yes [id number] 40mg Take 1 [facility] 40 mg 9-16 tablet by ity of tablet 00:00: mouth [place] 00 every Medical morning Branch and evening. levothyroxi 2020-0 Yes [id number] 50ug Take 1 [facility] ne 50 mcg 9-16 tablet by ity o f tablet 00:00: mouth [place] 00 every Medical morning. Branch venlafaxine 2020-0 Yes [id number] 75mg Take 1 [facility] 75 mg 9-16 tablet by ity of tablet 00:00: mouth 2 [place] 00 (two) Medical times Branch daily. glipiZIDE 5 2019-0 Yes [id number] 5mg Take 1 [facility] mg tablet 9-16 tablet by ity o f 00:00: mouth 2 [place] 00 (two) Medical times Branch daily before breakfast and dinner. furosemide 2019-0 Yes [id number] 40mg Take 1 [facility] 40 mg 9-16 tablet by ity of tablet 00:00: mouth [place] 00 every Medical morning Branch and evening. levothyroxi 2020- No [id number] 50ug Take 1 [facility] ne 50 mcg 02-04 05-08 tablet by ity of tablet 00:00: 00:00 mouth [place] 00 :00 every Medical morning. Branch venlafaxine 2020- No [id number] 75mg Take 1 [facility] 75 mg - 05-08 tablet by ity of tablet 00:00: 00:00 mouth 2 [place] 00 :00 (two) Medical times Branch daily. glipiZIDE 5 2020- No [id number] 5mg Take 1 [facility] mg tablet 02-04 05-08 tablet by ity of 00:00: 00:00 mouth 2 [place] 00 :00 (two) Medical times Branch daily before breakfast and dinner. furosemide 2019-2020- No [id number] 40mg Take 1 [facility] 40 mg -16 05-08 tablet by ity of tablet 00:00: 00:00 mouth [place] 00 :00 every Medical morning Branch and evening. tamsulosin 2020- No [id number] .4mg Take 1 [facility] 0.4 mg 24 02-04- capsule by ity of hr capsule 00:00: 00:00 mouth [place] 00 :00 daily. Medical Branch tamsulosin 2020- No [id number] .4mg Take 1 [facility] 0.4 mg 24 02-04- capsule by ity of hr capsule 00:00: 00:00 mouth [place] 00 :00 daily. Medical Branch tamsulosin 2020- No [id number] .4mg Take 1 [facility] 0.4 mg 24 02-04- capsule by ity of hr capsule 00:00: 00:00 mouth [place] 00 :00 daily. Medical Branch tamsulosin 2020- No [id number] .4mg Take 1 [facility] 0.4 mg 24 02-04 capsule by ity of hr capsule 00:00: 00:00 mouth [place] 00 :00 daily. Medical Branch nitroglycer 2020- No [id number] .4mg Place 1 [facility] in 0.4 mg 02-04 tablet ity of sublingual 00:00: 00:00 under the [place] tablet 00 :00 tongue Medical every 5 Branch (five) minutes as needed for Chest pain. clopidogreL 2020- No [id number] 75mg Take 1 [facility] 75 mg 02-04 tablet by ity of tablet 00:00: 00:00 mouth [place] 00 :00 daily. Medical Branch lisinopriL No [id number] 2.5mg Take 1 [facility] 2.5 mg 02-04 tablet by ity of tablet 00:00: 00:00 mouth [place] 00 :00 daily. Medical Branch apixaban 5 2020- No [id number] 5mg Take 1 Univ ers mg tablet 02-04 tablet by ity of 00:00: 00:00 mouth 2 [place] 00 :00 (two) Medical times Branch daily. Indication s: atrial fibrillati on pantoprazol 2020- No [id number] 20mg Take 1 [facility] e 20 mg EC 02-04 tablet by ity of tablet 00:00: 00:00 mouth [place] 00 :00 daily. Medical Branch metoprolol 2020- No [id number] 25mg Take 1 [facility] succinate 02-04 tablet by ity of XL 25 mg 24 00:00: 00:00 mouth 2 [place] hr tablet 00 :00 (two) Medical times Branch daily. atorvastati 2020- No [id number] 40mg Take 1 [facility] n 40 mg 02-04 tablet by ity of tablet 00:00: 00:00 mouth at [place] 00 :00 bedtime. Medical Branch atorvastati No [id number] 80mg Take 2 [facility] n 40 mg 02-04 tablets by ity o f tablet 00:00: 00:00 mouth at [place] 00 :00 bedtime. Medical Branch sulfur No 5mL 5 mL, [facility] hexafluorid 02-0315 Intravenou i ty of e microsphr 21:30: 20:12 s, ONCE, 1 [place] (LUMASON) 00 :00 dose, [facility] Medic al injection 5 02/04/20 at Br anch mL 1630, Routine
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 : NINFA CASTILLO mupirocin 2020-0 Yes [facility] (BACTROBAN 02-03 ity of OINT) 2 % 18:00: [place] skin 00 Medical ointment Branch morpHINE 2020-0 Yes 4mg 4 mg, Slow Uni vers injection 4 02-03 IV Push, ity of mg 17:32: Q4HPRN, [place] 30 Starting Medical [facility] 02/04/20 at 1232, Until Discontinu ed, STAT, Pain (scale 7-10) enoxaparin 2020-0 Yes 80mg 80 mg, Unive rs (LOVENOX) 02-03 Subcutaneo ity of injection 16:15: us, Q12H, [place] 80 mg 00 First dose Medical on [facility] 02/04/20 at 1115, Until Discontinu ed, Routine tamsulosin 2020-0 Yes .4mg 0.4 mg, Univ ers (FLOMAX) - Oral, ity of capsule 0.4 14:00: DAILY, [place] mg 00 First dose Medical on [facility] 02/04/20 at 0900, Until Discontinu ed, Routine lisinopriL 2020-0 Yes 2.5mg 2.5 mg, Uni vers (PRINIVIL,Z - Oral, ity of ESTRIL) 14:00: DAILY, [place] tablet 2.5 00 First dose Med ical mg on [facility] 02/04/20 at 0900, Until Discontinu ed, Routine levothyroxi 2020-0 Yes 50ug 50 mcg, Uni vers ne -15 Oral, ity of (SYNTHROID) 11:00: QAM-0600, [place] tablet 50 00 First dose Medi uriel mcg on [facility] 02/04/20 at 0600, Until Discontinu ed, Routine venlafaxine 2020-0 Yes 75mg 75 mg, Univ ers XR (EFFEXOR 9-15 Oral, BID, it y of XR) 24 hr 07:15: First dose [place] capsule 75 00 on [facility] mg 02/04/20 at Branch 0215, Until Discontinu ed, Routine aspirin 2020-0 2020- No 325mg 325 mg, Unive rs tablet 325 02-03 Oral, ity of mg 07:00: 06:26 ONCE, 1 [place] 00 :00 dose, [facility] 02/04/20 at Branch 0200, PIERRE glipiZIDE 2019-0 Yes 5mg 5 mg, [facility] (GLUCOTROL) 02-03 Oral, ity of tablet 5 mg 06:00: BIDAC, [place] 00 First dose Medical on [facility] 02/04/20 at 0100, Until Discontinu ed, Routine metoprolol 2019-0 Yes 25mg 25 mg, Unive rs succinate 02-03 Oral, BID, ity of XL (TOPROL 06:00: First dose [place] XL) tablet 00 on [facility] 25 mg 02/04/20 at Branch 0100, Until Discontinu ed, Routine dicyclomine 2019-0 2020- No 20mg 20 mg, Uni vers (BENTYL) 02-03 Oral, TID, ity of tablet 20 06:00: 00:59 9 doses, [place] mg 00 :00 First dose Medical on [facility] 02/04/20 at 0100, Last dose on [facility] 02/06/20 at 1400, Routine furosemide 2020-0 2020- No 20mg 20 mg, IV U nivers (LASIX) 02-03 Push, Q6H, ity o f injection 06:00: 09:32 First dose [place] 20 mg 00 :46 on [facility] 02/04/20 at Branch 0100, Until Discontinu ed, PIERRE traMADoL 2019-0 Yes 50mg 50 mg, Univers (ULTRAM) 02-03 Oral, ity of tablet 50 05:49: Q8HPRN, [place] mg 02 Starting Medical [facility] 02/04/20 at 0049, Until Discontinu ed, Routine, Pain (scale 4-6) sennosides 2019-0 Yes 8.6mg 8.6 mg, Uni vers (SENOKOT) 02-03 Oral, BID, ity of tablet 8.6 05:45: First dose [place] mg 00 on [facility] 02/04/20 at Branch 0045, Until Discontinu ed, Routine docusate 2020-0 Yes 100mg 100 mg, Unive rs (COLACE) 15 Oral, BID, ity o f capsule 100 05:45: First dose [place] mg 00 on [facility] 02/04/20 at Branch 0045, Until Discontinu ed, Routine Sliding 2020-0 Yes Subcutaneo Univ ers Scale 02-03 us, TID ity of Insulin - 05:45: MEALS+HS, [place] Aspart 00 First dose Medical (NOVOLOG) + on [facility] 02/04/20 at Testing 0045, Until Discontinu ed, Routine ondansetron 2020-0 Yes 4mg 4 mg, Slow [facility] (ZOFRAN 02-03 IV Push, ity of (PF)) 05:44: Q6HPRN, [place] injection 4 18 Starting Medi uriel mg [facility] 02/04/20 at 0044, Until Discontinu ed, Routine, Nausea and Vomiting (N/V) glucagon 2020-0 Yes 1mg 1 mg, Univers (GLUCAGEN 02-03 Intramuscu ity of DIAGNOSTIC 05:42: [place], PRN, [place] KIT) 16 Starting Medical injection 1 [facility] mg 02/04/20 at 0042, Until Discontinu ed, PIERRE, Blood Glucose < or = 70 mg/dL and patient is unable to swallow or has mental changes. dextrose 50 2020-0 Yes 25mL 25 mL, Univ ers % in water 02-03 Slow IV ity of (D50W) 05:42: Push, PRN, [place] injection 16 Starting Medica l 25 mL [facility] 02/04/20 at 0042, Until Discontinu ed, PIERRE, Blood Glucose < or = 70 mg/dL and patient is unable to swallow or has mental status changes. morpHINE 2020-0 2020- No 4mg 4 mg, Slow [place] injection 4 02-03 IV Push, ity of mg 01:30: 00:41 ONCE, 1 [place] 00 :00 dose, [facility] 02/03/20 at Branch 2030, STAT ondansetron 2020-0 2020- No 4mg 4 mg, Slow Univers (ZOFRAN 02-03 IV Push, ity of (PF)) 00:30: 23:36 ONCE, 1 [place] injection 4 00 :00 dose, Mon Med ical mg 02/03/20 at [place] 1930, PIERRE morpHINE 2019-0 2020- No 4mg 4 mg, Slow [place] injection 4 02-03 IV Push, ity of mg 00:30: 23:33 ONCE, 1 [place] 00 :00 dose, [facility] 02/03/20 at [place] 1930, STAT iohexol 2019-0 2019- No 120mL 120 mL, Unive rs (OMNIPAQUE 02-02 Intravenou it y of 350 23:45: 23:19 s, ONCE, 1 [place] BULK-100 00 :00 dose, Mon Medica l mL) 02/03/20 at [place] injection 1845, 120 mL Routine maalox:diph 2019-2019- No 15mL 15 mL, Uni vers enhydrAMINE 02-02 Oral, ity of :lidocaine 22:45: 22:41 ONCE, 1 [place] 2 % viscous 00 :00 dose, Mon Med ical 1:1:1 02/03/20 at [place] (FIRST-MOUT 1744, PIERRE HWASH BLM) oral suspension 15 mL venlafaxine 2019-0 Yes 75mg Take 75 mg Univers 75 mg 7-02 by mouth 2 ity of tablet 19:14: (two) 09 times Medical daily. Branch levothyroxi 2019-0 Yes 50ug Take 50 Uni vers ne 50 mcg 7-02 mcg by ity of tablet 19:14: mouth 09 every Medical morning. Branch tamsulosin 2019-0 Yes Take by Uni vers 0.4 mg 24 02 mouth ity of hr capsule 19:14: daily. [place] 09 Medical Branch lisinopril 2019-0 Yes 2.5mg Take 2.5 [place] 2.5 mg 7-02 mg by ity of tablet 19:14: mouth daily. Medical Branch metoclopram 2019-0 2020- No 10mg Take 10 mg Univers dora HCl 10 11-20 07-02 by mouth ity of mg tablet 16:00: 00:00 before [place] 31 :00 meals. Medical Branch cadexomer 2020-0 Yes [id number] Apply to Univers iodine 0.9 11-20 [id number] area(s) ity of % gel 00:00: every [place] 00 evening. Medical Branch cadexomer 2020-0 2020- No [id number] Apply to Univers iodine 0.9 11-20 [id number] area(s) ity of % gel 00:00: 00:00 every [place] 00 :00 evening. Medical Branch piperacilli 2019- 2020- No [id number] 3.375g Infuse Univers n-tazobacta 11-20 [id number] 3.375 g it y of m 3.375 00:00: 04:59 every 6 [place] gram/50 mL 00 :00 (six) Medical Piggyback hours for Branc h RTU 35 days. vancomycin/ 2020- No [id number] 1250mg Infuse Univers 0.9 % sod 11-20 [id number] 1,250 mg ity of chloride 00:00: 04:59 every 12 [place] (VANCOMYCIN 00 :00 (twelve) Medi uriel 1250 MG IN hours for Bran ch NS 250 ML) 35 days. 1.25 gram/250 mL Soln insulin NPH 2020- No [id number] 15U inject 15 Univers and regular 11-20 Units ity of human 70-30 00:00: 04:59 under the [place] 100 unit/mL 00 :00 skin every Me dical (70-30) morning Branch injection and evening for 30 days. lidocaine 2019- No 5mL 5 mL, Univer s 1% (PF) 11-19 Subcutaneo ity o f (XYLOCAINE) 16:00: 21:00 us, ONCE, [place] injection 5 00 :00 1 dose, Medic al mL 11/20/19 Branch at 1100, Routine NaCl 0.9% Yes 10mL 10 mL, Univer s (NS) 11-19 Slow IV ity of injection 15:53: Push, PRN, [place] 10 mL 33 Starting Medical 11/20/19 Branch at 1053, Until Discontinu ed, Routine, line maintenanc e magnesium 2019-2019- No 296mL 296 mL, Uni vers citrate 11-19 Oral, ity of solution 15:30: 14:45 ONCE, 1 [place] 296 mL 00 :00 dose, Wed Medical 11/20/19 at Branch 1030, Routine tc 2019-2019- No 24.3mCi 24.3 Univers 99m-medrona 11-18 millicurie i ty of te 18:45: 18:34 , [place] (DRAXIMAGE 00 :00 Intravenou Med ical MDP-25) s, ONCE, 1 Branch injection dose, Tue 24.3 [facility], Routine morpHINE 2020-0 Yes 2mg 2 mg, Slow Uni vers injection 2 11-18 IV Push, ity of mg 09:37: Q4HPRN, [place] 09 Starting Medical Tue [place] 11/19/19 at 0437, Until Discontinu ed, Routine, Pain (scale 7-10) ondansetron 2020-0 Yes 4mg 4 mg, Slow Univers (ZOFRAN 11-17 IV Push, ity of (PF)) 17:29: Q6HPRN, [place] injection 4 40 Starting Medi uriel mg Mon [place] 11/18/19 at 1229, Until Discontinu ed, Routine, Nausea and Vomiting (N/V) atorvastati 2020-0 Yes 80mg 80 mg, Univ ers n (LIPITOR) 11-17 Oral, QHS, it y of tablet 80 02:00: First dose [place] mg 00 on [facility] 11/17/19 at [place] 2100, Until Discontinu ed, Routine iohexol 2020-0 2020- No 120mL 120 mL, Unive rs (OMNIPAQUE 11-17 Intravenou it y of 350 01:00: 01:00 s, ONCE, 1 [place] BULK-150 00 :00 dose, [facility] mL) 11/17/19 at [place] injection 2015, 120 mL Routine vancomycin 2020-0 Yes 1250mg 1,250 mg, Univers 1250 mg in 11-17 IV ity of NS 250 mL 00:45: Piggyback, [place] RTU IV 00 Q12H ABX, Medical Piggyback First dose Bran ch 1,250 mg on [facility] 11/17/19 at 1945, Until Discontinu ed
Reas on for Anti-Infec tive: Documented Infection< br>Documen ludmila Infection Site: Skin / Soft Tissue< br>Duratio n of Therapy: Other (see Comments) cadexomer 2020-0 Yes Topical, Univ ers iodine - DAILY AT ity of (IODOSORB 20:45: 1700, [place] GEL) 0.9 % 00 First dose Med ical gel on Sun Branch 11/17/19 at 1545, Until Discontinu ed, Routine lisinopril 2020-0 Yes 2.5mg 2.5 mg, Uni vers (PRINIVIL,Z 11-16 Oral, ity of ESTRIL) 14:00: DAILY, [place] tablet 2.5 00 First dose Med ical mg on Sun Branch 11/17/19 at 0900, Until Discontinu ed, Routine pantoprazol 2020-0 Yes 40mg 40 mg, [facility] ers e 11-16 Oral, ity of (PROTONIX) 14:00: DAILY, [place] EC tablet 00 First dose Medi uriel 40 mg on Sun Branch 11/17/19 at 0900, Until Discontinu ed, Routine tamsulosin 2020-0 Yes .4mg 0.4 mg, [facility] ers (FLOMAX) 11-16 Oral, ity of capsule 0.4 14:00: DAILY, [place] mg 00 First dose Medical on [place] Branch 11/17/19 at 0900, Until Discontinu ed, Routine venlafaxine 2020-0 Yes 75mg 75 mg, [facility] ers (EFFEXOR) 11-16 Oral, BID, ity of tablet 75 13:00: First dose [place] mg 00 on [facility] 11/17/19 at Branch 0800, Until Discontinu ed, Routine Sliding 2020-0 Yes Subcutaneo [facility] ers Scale 11-16 us, AC+HS, ity of Insulin-Reg 12:30: First dose [place] ular + Fsbg 00 on [facility] 11/17/19 at Branch 0730, Until Discontinu ed, Routine levothyroxi 2020-0 Yes 50ug 50 mcg, Uni vers ne 11-16 Oral, ity of (SYNTHROID) 11:00: QAM-0600, [place] tablet 50 00 First dose Medi uriel mcg on Sun Branch 11/17/19 at 0600, Until Discontinu ed, Routine nitroglycer 2020-0 Yes .4mg 0.4 mg, Uni vers in 11-16 Sublingual ity of (NITROSTAT) 06:58: , Q5MIN [place] sublingual 54 PRN, Medical tablet 0.4 Starting Branc h mg 11/17/19 at 0158, Until Discontinu ed, Routine, Chest pain piperacilli 2020-0 Yes 3.375g 3.375 g, [facility] n-tazobacta 11-16 IV ity of m (ZOSYN) 05:00: Piggyback, [place] 3.375 00 Q6H ABX, Medical gram/50 mL First dose [facility] Piggyback on Sun RTU 3.375 g 11/17/19 at 0000, Until Discontinu ed, 50 mL
R debbie for Anti-Infec tive: Empiric Therapy for Suspected Infection< br>Empiric Therapy Site: Skin / Soft tissue
Duration of therapy: 7 days insulin NPH 2020-0 Yes 15U 15 Units, U nivers and regular 11-16 Subcutaneo it y of human 30 04:00: , [place] (HUMULIN 00 QAM+PM, Medical 70-30 U-100 First dose Br anch INSULIN) on Sat 100 unit/mL 11/16/19 at (70-30) 2300, injection Until 15 Units Discontinu ed, Routine morpHINE 2019-0 2020- No 2mg 2 mg, Slow [place] injection 2 11-16 0630 IV Push, ity of mg 03:46: 03:45 Q3HPRN, [place] 00 :00 Starting Medical Sat Branch 11/16/19 at 2246, Until 11/18/19 at 2245, Routine, Pain (scale 7-10) acetaminoph 2019-0 Yes 650mg 650 mg, [place] en 11-16 Oral, ity of (TYLENOL) 03:45: Q6[place], [place] tablet 650 39 Starting Medic al [...] IV ity of (D50W) 02:30: Push, PRN, [place] injection 42 Starting Medica l 25 mL Sat Branch 11/16/19 at 2130, Until Discontinu ed, PIERRE, Blood Glucose < or = 70 mg/dL and patient is unable to swallow or has mental status changes. morpHINE 2019- No 4mg 4 mg, Slow [place] injection 4 11-16 IV Push, ity of mg 00:45: 23:37 ONCE, 1 [place] 00 :00 dose, Sat Medical 11/16/19 at Branch 1945, STAT insulin 2019- No 8U 8 Units, Unive rs regular 11-16 Subcutaneo ity o f human 00:45: 23:37 us, ONCE, [place] (HUMULIN R) 00 :00 1 dose, Medic al injection 8 Sat [place] Units 11/16/19 at 1945, PIERRE iohexol 2019- No 120mL 120 mL, Unive rs (OMNIPAQUE 11-15 Intravenou it y of 350 23:57: 23:57 s, ONCE, 1 [place] BULK-150 00 :00 dose, Sat Medica l mL) 11/16/19 at [place] injection 1915, 120 mL Routine NaCl 0.9% 2019- No 1000mL at 999 Uni vers (NS) bolus 11-15 mL/hr, ity of infusion 23:30: 23:37 1,000 mL, [place] as 1,000 mL 00 :00 IV Medical Infusion, [place] ONCE, 1 dose, 11/16/19 at 1830, PIERRE ondansetron 2019- No 8mg 8 mg, Slow Univers (ZOFRAN 11-15 IV Push, ity of (PF)) 23:30: 22:27 ONCE, 1 [place] injection 8 00 :00 dose, Sat Med ical mg 11/16/19 at Branch 1830, PIERRE morpHINE 2019-2019- No 4mg 4 mg, Slow [place] injection 4 11-15 IV Push, ity of mg 23:30: 22:27 ONCE, 1 [place] 00 :00 dose, Sat Medical 11/16/19 at Branch 1830, STAT vancomycin 2019-0 2020- No 15mg/kg 1,000 mg Univers 1000 mg in 11-15 (rounded ity of NS 200 mL 23:00: 23:27 from 1,020 [place] RTU IV 00 :00 mg = 15 Medical Piggyback mg/kg ?68 Branc h 1,000 mg kg), IV Piggyback, ONCE, 1 dose, 11/16/19 at 1800
Reason for Anti-Infec tive: Documented Infection< br>Documen ludmila Infection Site: Skin / Soft Tissue
Duration of Therapy: Other (see Comments) acetaminoph 2020-0 2020- No 650mg 650 mg, U nivers en 11-15 Oral, ity of (TYLENOL) 23:00: 22:26 ONCE, 1 [place] tablet 650 00 :00 dose, Sat Medi uriel mg 11/16/19 at Branch 1800, PIERRE NaCl 0.9% 2020-0 2020- No 1000mL at 999 Uni vers (NS) bolus 11-15 mL/hr, ity of infusion 22:00: 23:30 1,000 mL, [place] 1,000 mL 00 :00 IV Medical Infusion, Branch ONCE, 1 dose, 11/16/19 at 1700, PIERRE NaCl 0.9% 2020-0 2020- No 500mL at 999 Univ ers (NS) bolus - 04-29 mL/hr, 500 it y of infusion 06:00: 05:38 mL, IV [place] 500 mL 00 :00 Infusion, Medical ONCE, 1 Branch dose, 09/18/19 at 0100, STAT NaCl 0.9% 2020-0 2020- No 500mL at 999 Univ ers (NS) bolus 4-29 04-29 mL/hr, 500 it y of infusion 05:15: 04:46 mL, IV [place] 500 mL 00 :00 Infusion, Medical ONCE, 1 Branch dose, 09/18/19 at 0015, STAT diphenhydrA 2020-0 2020- No 25mg 25 mg, Uni vers MINE 09-17 Slow IV ity of (BENADRYL) 04:00: 02:54 Push, [place] injection 00 :00 ONCE, 1 Medical 25 mg dose, [facility] 09/17/19 at 2300, STAT metoclopram 2020-0 2020- No 10mg 10 mg, Uni vers dora HCl 09-17 Slow IV ity of (REGLAN) 04:00: 02:54 Push, [place] injection 00 :00 ONCE, 1 Medical 10 mg dose, [facility] 09/17/19 at 2300, PIERRE morpHINE 2020-0 2020- No 4mg 4 mg, Slow [place] injection 4 09-17 IV Push, ity of mg 04:00: 02:55 ONCE, 1 [place] 00 :00 dose, [facility] 09/17/19 at Branch 2300, STAT iohexol 2020-0 2020- No 120mL 120 mL, Unive rs (OMNIPAQUE 09-17 Intravenou it y of 350 02:38: 02:38 s, ONCE, 1 [place] BULK-150 00 :00 dose, [facility] Medica l mL) 09/17/19 at Branch injection 2145, 120 mL Routine sodium 2019-0 Yes 5mL 5 mL, Univers chloride 09-17 Intravenou ity o f (NS) 01:38: s, PRN, [place] injection 5 51 Starting Medi uriel mL [facility] 09/17/19 at 2038, Until Discontinu ed, Routine, IV line flushing dicyclomine 2020-0 Yes [id number] 20mg Take 1 Univers 20 mg 4-28 tablet by ity of tablet 00:00: mouth [place] 00 every 6 Medical (six) Branch hours as needed for Abdominal pain. ciprofloxac 2020-0 Yes [id number] 500mg Take 1 Univers in HCl 500 -28 tablet by ity of mg tablet 00:00: mouth 2 [place] 00 (two) Medical times Branch daily. metroNIDAZO 2020-0 Yes [id number] 500mg Take 1 Univers LE 500 mg 4-28 tablet by ity o f tablet 00:00: mouth 2 [place] 00 (two) Medical times Branch daily. dicyclomine 2020-0 2020- No [id number] 20mg Take 1 Univers 20 mg 4-28 - tablet by ity of tablet 00:00: 00:00 mouth [place] 00 :00 every 6 Medical (six) Branch hours as needed for Abdominal pain. ciprofloxac 2020-0 2020- No [id number] 500mg Take 1 Univers in HCl 500 4-16 12- tablet by ity of mg tablet 00:00: 00:00 mouth 2 [place] 00 :00 (two) Medical times Branch daily. metroNIDAZO 2020-0 2020- No [id number] 500mg Take 1 Univers LE 500 mg 4-28 07-02 tablet by ity of tablet 00:00: 00:00 mouth 2 [place] 00 :00 (two) Medical times [place] daily. lisinopril 2020-0 Yes 2.5mg Take 2.5 Un [place] 2.5 mg 4-16 mg by ity of tablet 19:24: mouth [place] 40 daily. [facility] Branch lisinopril 2020-0 Yes 2.5mg Take 2.5 [place] 2.5 mg 4-16 mg by ity of tablet 19:24: mouth [place] 40 daily. [facility] Branch lisinopril 2020-0 Yes 2.5mg Take 2.5 [place] 2.5 mg 4-16 mg by ity of tablet 19:24: mouth [place] 40 daily. [facility] Branch clindamycin 2019- No 300mg 300 mg, U nivers (CLEOCIN 08-14 Oral, ity of HCL) 20:01: 20:02 ONCE, 1 [place] capsule 300 00 :00 dose, [facility] Med ical mg 08/15/19 at Branch 1515, PIERRE
Re ason for Anti-Infec tive: Documented Infection< br>Documen ludmila Infection Site: Skin / Soft Tissue
Duration of Therapy: Other (see Comments)< br>Restric ludmlia use approved by: [employer] PROVIDER NaCl 0.9% 2019- No 500mL at 999 Univ ers (NS) bolus 08-14 mL/hr, 500 it y of infusion 19:30: 19:00 mL, IV [place] 500 mL 00 :00 Infusion, Medical ONCE, 1 [place] dose, [facility] 08/15/19 at 1430, STAT iohexol 2019-2019- No 120mL 120 mL, Unive rs (OMNIPAQUE 08-14 Intravenou it y of 350 19:15: 19:15 s, ONCE, 1 [place] BULK-150 00 :00 dose, [facility] Medica l mL) 08/15/19 at [place] injection 1415, 120 mL Routine FENTanyl PF 2019-2019- No 50ug 50 mcg, Un charley (SUBLIMAZE 08-14 Slow IV ity o f (PF)) 18:23: 18:39 Push, [place] injection 00 :00 ONCE, 1 Medical 50 mcg dose, [facility] Branch 08/15/19 at 1330, STAT insulin 2019-0 2020- No 7U 7 Units, Unive rs regular 08-14 Slow IV ity of human 18:20: 18:39 Push, [place] (HUMULIN R) 00 :00 ONCE, 1 Medic al injection 7 dose, [facility] Units 08/15/19 at 1330, STAT ondansetron 2019-0 2020- No 4mg 4 mg, Slow Univers (ZOFRAN 08-14 IV Push, ity of (PF)) 17:45: 17:45 ONCE, 1 [place] injection 4 00 :00 dose, [place] Med ical mg 08/15/19 at Branch 1245, [facility] maalox:diph 2019-0 2020- No 15mL 15 mL, Uni vers enhydrAMINE 08-14 Oral, ity of :lidocaine 17:45: 17:45 ONCE, 1 [place] 2 % viscous 00 :00 dose, [place] Med ical 1:1:1 08/15/19 at [place] (FIRST-MOUT 1245, PIERRE HWASH BLM) oral suspension 15 mL famotidine 2019-0 2020- No 20mg 20 mg, Univ ers (PEPCID 08-14 Slow IV ity of (PF)) 17:45: 17:45 Push, [place] injection 00 :00 ONCE, 1 Medical 20 mg dose, [facility] Branch 08/15/19 at 1245, [facility] clindamycin 2020-0 Yes [id number] 300mg Take 1 Univers 300 mg 3-26 capsule by ity of capsule 00:00: mouth 3 [place] 00 (three) Medical times Branch daily. dicyclomine 2020-0 Yes [id number] 10mg Take 1 Univers (BENTYL) 10 3-26 capsule by it y of mg capsule 00:00: mouth 3 [place] 00 (three) Medical times Branch daily as needed for Abdominal pain. ondansetron 2020-0 Yes [id number] 4mg Take 1 Univers (ZOFRAN 3-26 tablet by ity of ODT) 4 mg 00:00: mouth [place] disintegrat 00 every 8 Medic al ing tablet (eight) Branch hours as needed for Nausea and Vomiting (N/V). clindamycin 2020-0 Yes [id number] 300mg Take 1 Univers 300 mg 3-26 capsule by ity of capsule 00:00: mouth 3 [place] 00 (three) Medical times Branch daily. dicyclomine 2020-0 Yes [id number] 10mg Take 1 Univers (BENTYL) 10 3-26 capsule by it y of mg capsule 00:00: mouth 3 [place] 00 (three) Medical times Branch daily as needed for Abdominal pain. ondansetron 2020-0 Yes [id number] 4mg Take 1 Univers (ZOFRAN 3-26 tablet by ity of ODT) 4 mg 00:00: mouth [place] disintegrat 00 every 8 Medic al ing tablet (eight) Branch hours as needed for Nausea and Vomiting (N/V). clindamycin 2020-0 Yes [id number] 300mg Take 1 Univers 300 mg 3-26 capsule by ity of capsule 00:00: mouth 3 [place] 00 (three) Medical times Branch daily. dicyclomine 2020-0 Yes [id number] 10mg Take 1 Univers (BENTYL) 10 3-26 capsule by it y of mg capsule 00:00: mouth 3 [place] 00 (three) Medical times Branch daily as needed for Abdominal pain. ondansetron 2020-0 Yes [id number] 4mg Take 1 Univers (ZOFRAN 3-26 tablet by ity of ODT) 4 mg 00:00: mouth [place] disintegrat 00 every 8 Medic al ing tablet (eight) Branch hours as needed for Nausea and Vomiting (N/V). clindamycin 2020-0 Yes [id number] 300mg Take 1 Univers 300 mg 3-26 capsule by ity of capsule 00:00: mouth 3 [place] 00 (three) Medical times Branch daily. dicyclomine 2020-0 Yes [id number] 10mg Take 1 Univers (BENTYL) 10 3-26 capsule by it y of mg capsule 00:00: mouth 3 [place] 00 (three) Medical times Branch daily as needed for Abdominal pain. ondansetron 2020-0 Yes [id number] 4mg Take 1 Univers (ZOFRAN 3-26 tablet by ity of ODT) 4 mg 00:00: mouth [place] disintegrat 00 every 8 Medic al ing tablet (eight) Branch hours as needed for Nausea and Vomiting (N/V). clindamycin 2020-0 Yes [id number] 300mg Take 1 Univers 300 mg 3-26 capsule by ity of capsule 00:00: mouth 3 [place] 00 (three) Medical times Branch daily. dicyclomine 2020-0 Yes [id number] 10mg Take 1 Univers (BENTYL) 10 3-26 capsule by it y of mg capsule 00:00: mouth 3 [place] 00 (three) Medical times Branch daily as needed for Abdominal pain. ondansetron 2020-0 Yes [id number] 4mg Take 1 Univers (ZOFRAN 3-26 tablet by ity of ODT) 4 mg 00:00: mouth [place] disintegrat 00 every 8 Medic al ing tablet (eight) Branch hours as needed for Nausea and Vomiting (N/V). clindamycin 2020-0 Yes [id number] 300mg Take 1 Univers 300 mg 3-26 capsule by ity of capsule 00:00: mouth 3 [place] 00 (three) Medical times Branch daily. dicyclomine 2020-0 Yes [id number] 10mg Take 1 Univers (BENTYL) 10 3-26 capsule by it y of mg capsule 00:00: mouth 3 [place] 00 (three) Medical times Branch daily as needed for Abdominal pain. ondansetron 2020-0 Yes [id number] 4mg Take 1 Univers (ZOFRAN 3-26 tablet by ity of ODT) 4 mg 00:00: mouth [place] disintegrat 00 every 8 Medic al ing tablet (eight) Branch hours as needed for Nausea and Vomiting (N/V). clindamycin 2020-0 Yes [id number] 300mg Take 1 Univers 300 mg 3-26 capsule by ity of capsule 00:00: mouth 3 [place] 00 (three) Medical times Branch daily. dicyclomine 2020-0 Yes [id number] 10mg Take 1 Univers (BENTYL) 10 3-26 capsule by it y of mg capsule 00:00: mouth 3 [place] 00 (three) Medical times Branch daily as needed for Abdominal pain. ondansetron 2020-0 Yes [id number] 4mg Take 1 Univers (ZOFRAN 3-26 tablet by ity of ODT) 4 mg 00:00: mouth [place] disintegrat 00 every 8 Medic al ing tablet (eight) Branch hours as needed for Nausea and Vomiting (N/V). clindamycin 2020-0 Yes [id number] 300mg Take 1 Univers 300 mg 3-26 capsule by ity of capsule 00:00: mouth 3 [place] 00 (three) Medical times Branch daily. dicyclomine 2020-0 Yes [id number] 10mg Take 1 Univers (BENTYL) 10 3-26 capsule by it y of mg capsule 00:00: mouth 3 [place] 00 (three) Medical times Branch daily as needed for Abdominal pain. ondansetron 2020-0 Yes [id number] 4mg Take 1 Univers (ZOFRAN 3-26 tablet by ity of ODT) 4 mg 00:00: mouth [place] disintegrat 00 every 8 Medic al ing tablet (eight) Branch hours as needed for Nausea and Vomiting (N/V). ondansetron 2020-0 Yes [id number] 4mg Take 1 Univers (ZOFRAN 3-26 tablet by ity of ODT) 4 mg 00:00: mouth [place] disintegrat 00 every 8 Medic al ing tablet (eight) Branch hours as needed for Nausea and Vomiting (N/V). ondansetron 2020-0 2020- No [id number] 4mg Take 1 Univers (ZOFRAN 3-26 09-16 tablet by ity of ODT) 4 mg 00:00: 00:00 mouth [place] disintegrat 00 :00 every 8 Medic al ing tablet (eight) Branch hours as needed for Nausea and Vomiting (N/V). clindamycin 2020-0 2020- No [id number] 300mg Take 1 Univers 300 mg 3-26 07-02 capsule by ity of capsule 00:00: 00:00 mouth 3 [place] 00 :00 (three) Medical times Branch daily. dicyclomine 2020-0 2020- No [id number] 10mg Take 1 Univers (BENTYL) 10 3-26 07-02 capsule by i ty of mg capsule 00:00: 00:00 mouth 3 [place] 00 :00 (three) Medical times Branch daily as needed for Abdominal pain. mupirocin 2 2020-0 2020- No [id number] Apply to Univers % ointment 3-26 04-01 area(s) 3 ity of 00:00: 04:59 (three) [place] 00 :00 times Medical daily for Branch 5 days. mupirocin 2 2020-0 2020- No [id number] Apply to Univers % ointment 3-26 04-01 area(s) 3 ity of 00:00: 04:59 (three) [place] 00 :00 times Medical daily for Branch 5 days. mupirocin 2 2020- 2020- No [id number] Apply to Univers % ointment 3-14 09- area(s) 3 ity of 00:00: 04:59 (three) [place] 00 :00 times Medical daily for Branch 5 days. mupirocin 2 2019-2019- No [id number] Apply to Univers % ointment 3- area(s) 3 ity of 00:00: 04:59 (three) [place] 00 :00 times Medical daily for Branch 5 days. mupirocin 2 2019-2019- No [id number] Apply to Univers % ointment 3- area(s) 3 ity of 00:00: 04:59 (three) [place] 00 :00 times Medical daily for Branch 5 days. clindamycin 2019-2019- No [id number] 300mg Take 1 Univers 300 mg 3-14 08-26 capsule by ity of capsule 00:00: 00:00 mouth 3 [place] 00 :00 (three) Medical times Branch daily for 7 days. dicyclomine 2019-2019- No [id number] 10mg Take 1 Univers (BENTYL) 10 -14 08-26 capsule by i ty of mg capsule 00:00: 00:00 mouth 3 [place] 00 :00 (three) Medical times Branch daily as needed for Abdominal pain. ondansetron 2019-2019- No [id number] 4mg Take 1 Univers (ZOFRAN 3-26 03-26 tablet by ity of ODT) 4 mg 00:00: 00:00 mouth [place] disintegrat 00 :00 every 8 Medic al ing tablet (eight) Branch hours as needed for Nausea and Vomiting (N/V). ezetimibe 2019- 2020- No [id number] 10mg Take 1 U nivers 10 mg 3-21 04-21 tablet by ity of tablet 00:00: 04:59 mouth [place] 00 :00 daily for Medical 30 days. Branch ezetimibe 2019-2019- No [id number] 10mg Take 1 U nivers 10 mg 3-21 04-21 tablet by ity of tablet 00:00: 04:59 mouth [place] 00 :00 daily for Medical 30 days. Branch ezetimibe 2019- No [id number] 10mg Take 1 U nivers 10 mg 3-21 04-21 tablet by ity of tablet 00:00: 04:59 mouth [place] 00 :00 daily for Medical 30 days. [place] ezetimibe 2019-0 2020- No [id number] 10mg Take 1 U nivers 10 mg 3-21 04-21 tablet by ity of tablet 00:00: 04:59 mouth [place] 00 :00 daily for Medical 30 days. [place] ezetimibe 2019-0 2020- No [id number] 10mg Take 1 U nivers 10 mg 3-21 04-21 tablet by ity of tablet 00:00: 04:59 mouth [place] 00 :00 daily for Medical 30 days. [place] ezetimibe 2019-0 2020- No [id number] 10mg Take 1 U nivers 10 mg 3-21 04-21 tablet by ity of tablet 00:00: 04:59 mouth [place] 00 :00 daily for Medical 30 days. [place] ezetimibe 2019-0 2020- No [id number] 10mg Take 1 U nivers 10 mg 3-21 -21 tablet by ity of tablet 00:00: 04:59 mouth [place] 00 :00 daily for Medical 30 days. [place] ezetimibe 2019-0 2020- No [id number] 10mg Take 1 U nivers 10 mg 3-21 -21 tablet by ity of tablet 00:00: 04:59 mouth [place] 00 :00 daily for Medical 30 days. [place] ezetimibe 2019-0 2020- No [id number] 10mg Take 1 U nivers 10 mg 3-21 -21 tablet by ity of tablet 00:00: 04:59 mouth [place] 00 :00 daily for Medical 30 days. [place] ezetimibe 2019-0 2020- No [id number] 10mg Take 1 U nivers 10 mg 3-21 -21 tablet by ity of tablet 00:00: 04:59 mouth [place] 00 :00 daily for Medical 30 days. Branch venlafaxine 2019-0 Yes 75mg Take 75 mg Univers 75 mg 3-20 by mouth 2 ity of tablet 20:20: (two) [place] 17 times Medical daily. Branch levothyroxi 2019-0 Yes [...] mouth ity of hr capsule 20:20: daily. [place] [address] Medical Branch lisinopril 2020-0 Yes 2.5mg Take [...] mouth ity of hr capsule 20:20: daily. [place] [address] Medical Branch lisinopril 2020-0 Yes 2.5mg Take [...] mouth ity of hr capsule 20:20: daily. [place] [address] Medical Branch lisinopril 2020-0 Yes 2.5mg Take [...] mouth ity of hr capsule 20:20: daily. [place] [address] Medical Branch venlafaxine 2020-0 Yes 75mg Take [...] mouth ity of hr capsule 20:20: daily. [place] [address] Medical Branch venlafaxine 2020-0 Yes 75mg Take [...] mouth ity of hr capsule 20:20: daily. [place] [address] Medical Branch ezetimibe 2020-0 Yes 10mg 10 mg, Univer s (ZETIA) 3-20 Oral, ity of tablet 10 14:00: DAILY, [place] mg 00 First dose Medical on Mon Branch 08/09/19 at 0900, Until Discontinu ed, Routine pantoprazol 2020-0 Yes [id number] 40mg Take 2 U nivers e 20 mg EC 3-20 tablets by ity of tablet 00:00: mouth [place] 00 daily. Medical Branch pantoprazol 2020-0 Yes [id number] 40mg Take 2 U nivers e 20 mg EC 3-20 tablets by ity of tablet 00:00: mouth [place] 00 daily. [facility] pantoprazol 2020-0 Yes [id number] 40mg Take 2 U nivers e 20 mg EC 3-20 tablets by ity of tablet 00:00: mouth [place] 00 daily. [facility] pantoprazol 2020-0 Yes [id number] 40mg Take 2 U nivers e 20 mg EC 3-20 tablets by ity of tablet 00:00: mouth [place] 00 daily. [facility] pantoprazol 2020-0 Yes [id number] 40mg Take 2 U nivers e 20 mg EC 3-20 tablets by ity of tablet 00:00: mouth [place] 00 daily. [facility] pantoprazol 2020-0 Yes [id number] 40mg Take 2 U nivers e 20 mg EC 3-20 tablets by ity of tablet 00:00: mouth [place] 00 daily. [facility] pantoprazol 2020-0 Yes [id number] 40mg Take 2 U nivers e 20 mg EC 3-20 tablets by ity of tablet 00:00: mouth [place] 00 daily. [facility] pantoprazol 2020-0 Yes [id number] 40mg Take 2 U nivers e 20 mg EC 3-20 tablets by ity of tablet 00:00: mouth [place] 00 daily. [facility] pantoprazol 2020-0 Yes [id number] 40mg Take 2 U nivers e 20 mg EC 3-20 tablets by ity of tablet 00:00: mouth [place] 00 daily. [facility] pantoprazol 2020-0 Yes [id number] 40mg Take 2 U nivers e 20 mg EC 3-20 tablets by ity of tablet 00:00: mouth [place] 00 daily. [facility] pantoprazol 2020-0 Yes [id number] 40mg Take 2 U nivers e 20 mg EC 3-20 tablets by ity of tablet 00:00: mouth [place] 00 daily. [facility] pantoprazol 2020-0 Yes [id number] 40mg Take 2 U nivers e 20 mg EC 3-20 tablets by ity of tablet 00:00: mouth [place] 00 daily. [facility] pantoprazol 2020-0 2020- No [id number] 40mg Take 2 Univers e 20 mg EC 3-20 09-16 tablets by it y of tablet 00:00: 00:00 mouth [place] 00 :00 daily. [facility] glipiZIDE 5 2019- No [id number] 5mg Take 1 Univers mg tablet 3-20 04-20 tablet by ity of 00:00: 04:59 mouth 2 [place] 00 :00 (two) Medical times Branch daily before breakfast and dinner for 30 days. glipiZIDE 5 2019-2019- No [id number] 5mg Take 1 Univers mg tablet 3-20 04-20 tablet by ity of 00:00: 04:59 mouth 2 [place] 00 :00 (two) Medical times Branch daily before breakfast and dinner for 30 days. glipiZIDE 5 2019- No [id number] 5mg Take 1 Univers mg tablet 3-20 04-20 tablet by ity of 00:00: 04:59 mouth 2 [place] 00 :00 (two) Medical times Branch daily before breakfast and dinner for 30 days. glipiZIDE 5 2019- No [id number] 5mg Take 1 Univers mg tablet 3-20 04-20 tablet by ity of 00:00: 04:59 mouth 2 [place] 00 :00 (two) Medical times Branch daily before breakfast and dinner for 30 days. glipiZIDE 5 2019- No [id number] 5mg Take 1 Univers mg tablet 3-20 04-20 tablet by ity of 00:00: 04:59 mouth 2 [place] 00 :00 (two) Medical times Branch daily before breakfast and dinner for 30 days. glipiZIDE 5 2019- No [id number] 5mg Take 1 Univers mg tablet 3-20 04-20 tablet by ity of 00:00: 04:59 mouth 2 [place] 00 :00 (two) Medical times Branch daily before breakfast and dinner for 30 days. glipiZIDE 5 2019- No [id number] 5mg Take 1 Univers mg tablet 3-20 04-20 tablet by ity of 00:00: 04:59 mouth 2 [place] 00 :00 (two) Medical times Branch daily before breakfast and dinner for 30 days. glipiZIDE 5 2019- No [id number] 5mg Take 1 Univers mg tablet 3-20 04-20 tablet by ity of 00:00: 04:59 mouth 2 [place] 00 :00 (two) Medical times Branch daily before breakfast and dinner for 30 days. glipiZIDE 5 2019- No [id number] 5mg Take 1 Univers mg tablet 3-20 04-20 tablet by ity of 00:00: 04:59 mouth 2 [place] 00 :00 (two) Medical times [place] daily before breakfast and dinner for 30 days. glipiZIDE 5 2020-0 2020- No [id number] 5mg Take 1 Univers mg tablet 3-20 04-20 tablet by ity of 00:00: 04:59 mouth 2 [place] 00 :00 (two) Medical times [place] daily before breakfast and dinner for 30 days. NaCl 0.9% 2019-0 2020- No 500mL at 999 [facility] ers (NS) bolus 08-07-19 mL/hr, 500 it y of infusion 19:30: 18:24 mL, IV [place] 500 mL 00 :00 Piggyback, Medical ONCE, 1 [place] dose, Annie 08/08/19 at 1430, STAT metoclopram 2019-0 Yes 10mg 10 mg, Univ ers dora HCl 08-07 Oral, TID, ity of (REGLAN) 19:00: First dose [place] J as tablet 10 00 on [facility] Medical mg 08/08/19 at Branch 1400, Until Discontinu ed, Routine barium 2019-0 2020- No 340g 340 g, Univers sulfate 08-07 Oral, ity of (LIQUID E-Z 16:45: 16:10 ONCE, 1 Khanh VELA) 60 % 00 :00 dose, Annie Med ical (w/v) oral 08/08/19 at [facility] suspension 1145, 340 g Routine insulin NPH 2019-0 Yes 14U 14 Units, U nivers (HUMULIN N) -18 Subcutaneo it y of injection 22:00: us, QPM, [place] 14 Units 00 First dose Medic al on Mon08/07/19 at 1700, Until Discontinu ed, Routine insulin NPH 2019-0 Yes 16U 16 Units, U nivers (HUMULIN N) -18 Subcutaneo it y of injection 14:00: us, QAM, [place] 16 Units 00 First dose Medic al on Mon08/07/19 at 0900, Until Discontinu ed, Routine tamsulosin 2020-0 Yes .4mg 0.4 mg, Univ ers (FLOMAX) 08-06 Oral, ity of capsule 0.4 14:00: DAILY, [...] Routine clopidogreL 2020-0 Yes 75mg 75 mg, Univ ers (PLAVIX) 18 Oral, ity of tablet 75 14:00: DAILY, [place] mg 00 First dose Medical on Mon08/07/19 at 0900, Until Discontinu ed, Routine levothyroxi 2020-0 Yes 50ug 50 mcg, Uni vers ne 08-06 Oral, ity of (SYNTHROID) 11:00: QAM-0600, T [...] [place] 00 First dose Medical on Mon [place] 08/06/19 at 2315, Until Discontinu ed, Routine Sliding 2020-0 Yes Subcutaneo Univ ers Scale 3-18 us, TID ity of Insulin - 02:00: MEALS+HS, Juan J as Aspart 00 First dose Medical (NOVOLOG) + on Mon [place] [facility] 08/06/19 at Testing 2100, Until Discontinu ed, Routine atorvastati 2020-0 Yes 80mg 80 mg, Univ ers n (LIPITOR) 318 Oral, QHS, it y of tablet 80 02:00: First dose [place] mg 00 on [facility] 08/06/19 at Branch 2100, Until Discontinu ed, Routine aspirin 2020-0 Yes 81mg 81 mg, Univers chewable 3-18 Oral, QHS, ity o f tablet 81 02:00: First dose [place] mg 00 on [facility] 08/06/19 at Branch 2100, Until Discontinu ed, Routine venlafaxine 2020-0 Yes 75mg 75 mg, Univ ers (EFFEXOR) 3-18 Oral, BID, ity of tablet 75 01:00: First dose [place] mg 00 on [facility] 08/06/19 at Branch 2000, Until Discontinu ed, Routine apixaban 2020-0 Yes 1358 5mg 5 mg, Univers (ELIQUIS) 3-18 Oral, BID, ity of tablet 5 mg 01:00: First dose [place] 00 on [facility] 08/06/19 at Branch 2000, Until Discontinu ed, Routine lisinopril 2020-0 Yes 2.5mg 2.5 mg, Uni vers (PRINIVIL,Z 3-18 Oral, ity of ESTRIL) 00:00: DAILY, [place] tablet 2.5 00 First dose Med ical mg on [facility] 08/06/19 at 1900, Until Discontinu ed, Routine hyoscyamine 2020-0 Yes .125mg 0.125 mg, Univers sulfate -17 Sublingual ity of (LEVSIN/SL) 23:55: , Q8HPRN, [place] sublingual Starting Medic al tablet [facility] 0.125 mg 08/06/19 at 1855, Until Discontinu ed, Routine, Pain (scale 1-3), abdominal pain morpHINE 2020-0 Yes 2mg 2 mg, Slow Uni vers injection 2 17 IV Push, ity of mg 23:11: Q3HPRN, [place] 26 Starting Medical [facility] 08/06/19 at 1811, Until Discontinu ed, Routine, Chest pain insulin NPH 2020-0 2020- No 14U 14 Units, Univers (HUMULIN N) 08-05-17 Subcutaneo i ty of injection 23:00: 23:51 , [place] 14 Units 00 :41 QAM+PM, Medical First dose Branch on [facility] 08/06/19 at 1800, Until Discontinu ed, Routine ondansetron 2020-0 Yes 4mg 4 mg, Slow Univers (ZOFRAN 3-17 IV Push, ity of (PF)) 22:52: Q6HPRN, [place] injection 4 11 Starting Medi uriel mg [facility] 08/06/19 at 1752, Until Discontinu ed, Routine, Nausea and Vomiting (N/V) HYDROcodone 2020-0 2020- No 1{tbl} 1 tablet, Univers -acetaminop 08-05 Oral, ity of hen (NORCO 22:51: 22:50 Q6HPRN, [place] J as 5) 5-325 mg 51 :51 Starting Medi uriel tablet 1 [facility] tablet 08/06/19 at 1751, Until [place] 08/08/19 at 1750, Routine, Pain (scale 4-6) nitroglycer 2019-0 Yes .4mg 0.4 mg, Uni vers in 08-05 Sublingual ity of (NITROSTAT) 22:49: , Q5MIN [place] sublingual 16 PRN, Medical tablet 0.4 Starting Branc h mg [facility] 08/06/19 at 1749, Until Discontinu ed, Routine, Chest pain ondansetron 2019-0 2020- No 4mg 4 mg, Slow Univers (ZOFRAN 08-05 IV Push, ity of (PF)) 20:30: 19:38 ONCE, 1 [place] injection 4 00 :00 dose, [facility] Med ical mg 08/06/19 at Branch 1530, PIERRE FENTanyl PF 2019-0 2020- No 75ug 75 mcg, [facility] [place] (SUBLIMAZE 08-05 Slow IV ity o f (PF)) 20:30: 19:38 Push, [place] injection 00 :00 ONCE, 1 Medical 75 mcg dose, [facility] 08/06/19 at 1530, STAT venlafaxine 2019-0 Yes [...] mouth ity of hr capsule 03:14: daily. [place] [address] Medical Branch lisinopril 2020-0 Yes 2.5mg Take [...] mouth ity of hr capsule 03:14: daily. [place] [address] Medical Branch lisinopril 2020-0 Yes 2.5mg Take [...] mouth ity of hr capsule 03:14: daily. [place] [address] Medical Branch lisinopril 2020-0 Yes 2.5mg Take [...] 03:14: mouth [place] 56 daily. Medical Branch tamsulosin 2020-0 Yes .4mg 0.4 mg, Univ ers (FLOMAX) 2-28 Oral, QHS, ity o f capsule 0.4 03:00: First dose [place] mg 00 on [facility] 07/18/19 at [place] 2100, Until Discontinu ed, Routine atorvastati 2020-0 Yes 80mg 80 mg, Univ ers n (LIPITOR) 2-28 Oral, QHS, it y of tablet 80 03:00: First dose [place] mg 00 on [facility] 07/18/19 at [place] 2100, Until Discontinu ed, Routine clopidogreL 2020-0 2020- No 300mg 300 mg, U nivers (PLAVIX) 2-28 02-28 Oral, ity of tablet 300 02:00: 01:47 ONCE, 1 [place] mg 00 :00 dose, [facility] 07/18/19 at Branch 2000, Routine clopidogreL 2020-0 Yes [id number] 75mg Take 1 Univers 75 mg 2-28 tablet by ity of tablet 00:00: mouth [place] 00 daily. [facility] clopidogreL 2020-0 Yes [id number] 75mg Take 1 Univers 75 mg 2-28 tablet by ity of tablet 00:00: mouth [place] 00 daily. [facility] clopidogreL 2020-0 Yes [id number] 75mg Take 1 Univers 75 mg 2-28 tablet by ity of tablet 00:00: mouth [place] 00 daily. [facility] clopidogreL 2020-0 Yes [id number] 75mg Take 1 Univers 75 mg 2-28 tablet by ity of tablet 00:00: mouth [place] 00 daily. [facility] clopidogreL 2020-0 Yes [id number] 75mg Take 1 Univers 75 mg 2-28 tablet by ity of tablet 00:00: mouth [place] 00 daily. [facility] clopidogreL 2020-0 Yes [id number] 75mg Take 1 Univers 75 mg 2-28 tablet by ity of tablet 00:00: mouth [place] 00 daily. [facility] clopidogreL 2020-0 Yes [id number] 75mg Take 1 Univers 75 mg 2-28 tablet by ity of tablet 00:00: mouth [place] 00 daily. [facility] clopidogreL 2020-0 Yes [id number] 75mg Take 1 Univers 75 mg 2-28 tablet by ity of tablet 00:00: mouth [place] 00 daily. [facility] clopidogreL 2020-0 Yes [id number] 75mg Take 1 Univers 75 mg 2-28 tablet by ity of tablet 00:00: mouth [place] 00 daily. [facility] clopidogreL 2020-0 Yes [id number] 75mg Take 1 Univers 75 mg 2-28 tablet by ity of tablet 00:00: mouth [place] 00 daily. [facility] clopidogreL 2020-0 Yes [id number] 75mg Take 1 Univers 75 mg 2-28 tablet by ity of tablet 00:00: mouth [place] 00 daily. [facility] clopidogreL 2020-0 Yes [id number] 75mg Take 1 Univers 75 mg 2-28 tablet by ity of tablet 00:00: mouth [place] 00 daily. [facility] clopidogreL 2020-0 Yes [id number] 75mg Take 1 Univers 75 mg 2-28 tablet by ity of tablet 00:00: mouth [place] 00 daily. [facility] clopidogreL 2020-0 Yes [id number] 75mg Take 1 Univers 75 mg 2-28 tablet by ity of tablet 00:00: mouth [place] 00 daily. [facility] clopidogreL 2020-0 Yes [id number] 75mg Take 1 Univers 75 mg 2-28 tablet by ity of tablet 00:00: mouth [place] 00 daily. [facility] clopidogreL 2020-0 Yes [id number] 75mg Take 1 Univers 75 mg 2-28 tablet by ity of tablet 00:00: mouth [place] 00 daily. [facility] clopidogreL 2020-0 2020- No [id number] 75mg Take 1 Univers 75 mg 2-28 09-16 tablet by ity of tablet 00:00: 00:00 mouth [place] 00 :00 daily. [facility] insulin NPH 2020-0 Yes 14U 14 Units, U nivers (HUMULIN N) - Subcutaneo it y of injection 23:00: us, QPM, [place] 14 Units 00 First dose Medic al on [place] Branch 07/18/19 at 1700, Until Discontinu ed, Routine perflutren 2020-0 2020- No IV Push, [facility] [place] protein-A 07-18 TITRATE - ity of microsphr 19:11: 19:11 FOR [place] (OPTISON) 16 :16 PROCEDURE Medic al injection USE, 1 Branch dose, Starting [facility] 07/18/19 at 1311, Until [facility] 07/18/19 at 1311, Routine amLODIPine 2019-0 2020- No 5mg Take 5 mg U nivers 5 mg tablet 07-18 by mouth ity of 17:41: 00:00 daily. [place] 39 :00 Medical Branch ibuprofen 2020-0 2020- No 600mg Take 600 [place] 600 mg 07-18 mg by ity of tablet 17:41: 00:00 mouth 3 [place] 39 :00 (three) Medical times [place] daily with meals. dicyclomine 2020-0 Yes 10mg 10 mg, Univ ers (BENTYL) 07-18 Oral, QID, ity o f capsule 10 16:00: First dose [place] mg 00 on [facility] 07/18/19 at Branch 1000, Until Discontinu ed, Routine magnesium 2020-0 2020- No 296mL 296 mL, Uni vers citrate 07-18 Oral, ity of solution 15:17: 16:50 ONCE, 1 [place] 296 mL 00 :00 dose, [facility] 07/18/19 at Branch 0930, PIERRE pantoprazol 2019-0 Yes 40mg 40 mg, Univ ers e 07-18 Oral, ity of (PROTONIX) 15:00: DAILY, [place] EC tablet 00 First dose Medi uriel 40 mg on [facility] 07/18/19 at 0900, Until Discontinu ed, Routine insulin NPH 2020-0 Yes 16U 16 Units, U nivers (HUMULIN N) 07-18 Subcutaneo it y of injection 15:00: us, QAM, [place] 16 Units 00 First dose Medic al on [facility] 07/18/19 at 0900, Until Discontinu ed, Routine aspirin 2020-0 Yes 81mg 81 mg, Univers chewable 07-18 Oral, ity of tablet 81 15:00: DAILY, [place] mg 00 First dose Medical on [facility] 07/18/19 at 0900, Until Discontinu ed, Routine venlafaxine 2020-0 Yes 75mg 75 mg, Univ ers (EFFEXOR) 07-18 Oral, BID, ity of tablet 75 14:00: First dose [place] mg 00 on [facility] 07/18/19 at Branch 0800, Until Discontinu ed, Routine ticagrelor 2019- 2020- No 90mg 90 mg, Univ ers (BRILINTA) 07-18 Oral, BID, it y of tablet 90 14:00: 23:22 First dose [place] mg 00 :37 on [facility] 07/18/19 at Branch 0800, Until Discontinu ed, Routine metoclopram 2020-0 Yes 10mg 10 mg, [facility] ers dora HCl 07-18 Oral, AC, ity of (REGLAN) 13:30: First dose [place] J as tablet 10 00 on [facility] mg 07/18/19 at Branch 0730, Until Discontinu ed, Routine levothyroxi 2019- Yes 50ug 50 mcg, Uni vers ne 07-18 Oral, ity of (SYNTHROID) 12:00: QAM-0600, [place] tablet 50 00 First dose Medi uriel mcg on [facility] 07/18/19 at 0600, Until Discontinu ed, Routine iohexol 2019-0 2020- No 120mL 120 [facility], [facility] (OMNIPAQUE 07-18 Intravenou it y of 350 12:00: 11:50 s, ONCE, 1 [place] BULK-150 00 :00 dose, Annie Medica l mL) 07/18/19 at [place] injection 0600, 120 mL Routine heparin 2020- No 12U/kg/ 12 Univer s 25,000 07-18 h Units/kg/h ity of unit/250 mL 10:30: 23:24 r ?77.1 kg [place] (Premixed 00 :37 (9.252 Medical Bag) in D5W mL/hr, Branch weight rounded to based 9.25 dosing ACS mL/hr), IV protocol Infusion, CONTINUOUS , Starting [facility] 07/18/19 at 0430, Until [facility] 07/18/19 at 1724 Sliding 2020-0 Yes Subcutaneo Univ ers Scale 2-27 us, Q4H, ity of Insulin - 10:15: First dose [place] Aspart 00 on [facility] (NOVOLOG) + 07/18/[address] [facility] Fsbg 0415, Testing Until Discontinu ed, Routine dextrose 2020-0 Yes 250mL 250 mL, IV [place] 10% (D10W) 07-18 Infusion, ity of bolus 09:59: PRN - SEE [place] infusion 37 INSTRUCTIO Medic al 250 mL [...] 07-18 Oral, ity of (TYLENOL) 09:17: Q6HPRN, [place] tablet 650 08 Starting Medic al mg [place] Branch 07/18/19 at 0317, Until Discontinu ed, Routine, Pain (scale 1-3) FENTanyl PF 2019-0 2020- No 25ug 25 mcg, [facility] [place] (SUBLIMAZE 07-18 Slow IV ity o f (PF)) 07:30: 06:30 Push, [place] injection 00 :00 ONCE, 1 Medical 25 mcg dose, [place] Branch 07/18/19 at 0130, STAT insulin 2019-0 2020- No 5U 5 Units, Unive rs regular 07-18 Subcutaneo ity o f human 06:45: 05:37 us, ONCE, [place] (HUMULIN R) 00 :00 1 dose, Medic al injection 5 [place] Branch Units 07/18/19 at 0045, Routine nitroglycer 2019- 2020- No .4mg 0.4 mg, [place] in 07-18 Sublingual ity of (NITROSTAT) 06:15: 05:24 , ONCE, 1 [place] sublingual 00 :00 dose, Annie Medi uriel tablet 0.4 07/18/19 at [facility] mg 0015, PIERRE morpHINE 2019-0 2020- No 4mg 4 mg, Slow [place] injection 4 07-18 IV Push, ity of mg 05:45: 04:41 ONCE, 1 [place] 00 :00 dose, [facility] 07/17/19 at Branch 2345, STAT ticagrelor 2019-0 2020- No 90mg 90 mg, Univ ers (BRILINTA) 07-18 Oral, ONCE it y of tablet 90 05:00: 04:20 NOW, 1 [place] mg 00 :00 dose, [facility] 07/17/19 at Branch 2300, Routine ondansetron 2019-0 2020- No 4mg 4 mg, Slow Univers (ZOFRAN 07-18 IV Push, ity of (PF)) 05:00: 04:08 ONCE, 1 [place] injection 4 00 :00 dose, Wed Med ical mg 07/17/19 at Branch 2300, PIERRE FENTanyl PF 2019-0 2020- No 50ug 50 mcg, [facility] [place] (SUBLIMAZE 07-18- Slow IV ity o f (PF)) 05:00: 04:07 Push, [place] injection 00 :00 ONCE, 1 Medical 50 mcg dose, [facility] Branch 07/17/19 at 2300, Routine clopidogreL 2020-0 2020- No [id number] Take 4 Univers 75 mg 2-27 -27 tablets by ity of tablet 00:00: 00:00 [...] 00:37: before [place] 50 meals. Medical Branch apixaban 2019-0 2020- No 5mg 5 mg, Univers (ELIQUIS) 2- 02-05 Oral, ity of tablet 5 mg 22:15: 23:35 ONCE, 1 [place] 00 :00 dose, Wed Medical 06/26/19 at [place] 1615, Routine famotidine 2019-0 2020- No 20mg Take 20 mg Univers 20 mg 2-09 20-05 by mouth 2 ity of tablet 18:07: 00:00 (two) [place] 45 :00 times Medical daily. Branch lisinopril 2020-0 2020- No 2.5mg Take 2.5 U nivers 2.5 mg 2- 02-05 mg by ity of tablet 18:07: 00:00 mouth [place] 45 :00 daily. Medical Branch pantoprazol 2020-0 Yes 40mg 40 mg, Univ ers e 2-05 Oral, ity of (PROTONIX) 16:30: DAILY, [place] EC tablet 00 First dose Medi uriel 40 mg on Mon Branch 06/26/19 at 1030, Until Discontinu ed, Routine KCL 2019- 2020- No 40meq 40 mEq, Univers (KLOR-CON 06-26 02-05 Oral, ity of M20) tablet 12:30: 12:09 ONCE, 1 [place] 40 mEq 00 :00 dose, Mon Medical 06/26/19 at Branch 0630, Routine magnesium 2019-2019- No 4g 4 g, IV Univ ers sulfate in 06-26- Piggyback, it y of water 4 12:30: 15:20 ONCE, 1 [place] gram/50 mL 00 :00 dose, Mon Medi uriel (8 %) IV 06/26/19 at [place] Piggyback 4 0630, g Routine insulin NPH 2019-0 Yes 14U 14 Units, U nivers (HUMULIN N) 06-26 Subcutaneo it y of injection 03:00: us, QHS, Juan Ja [place] 14 Units 00 First dose Medic al on Mon [place] 06/25/19 at 2100, Until Discontinu ed, Routine NaCl 0.9% 2019- No 250mL at 999 Univ ers (NS) bolus 06-26-05 mL/hr, 250 it y of infusion 02:30: 01:32 mL, IV [place] 250 mL 00 :00 Infusion, Medical ONCE, 1 Branch dose, [facility] 06/25/19 at 2030, STAT atorvastati 2019-0 Yes [id number] 80mg Take 1 U nivers n 80 mg 2-05 tablet by ity of tablet 00:00: mouth at [place] 00 bedtime. Medical Branch ticagrelor 2019-0 Yes [id number] 90mg Take 1 [place] 90 mg 2-05 tablet by ity of tablet 00:00: mouth 2 [place] 00 (two) Medical times Branch daily. apixaban 5 2019-0 Yes 1358 5mg Take 1 Unive rs mg tablet 2-05 tablet by ity o f 00:00: mouth 2 [place] 00 (two) Medical times Branch daily. Indication s: atrial fibrillati on apixaban 5 2019-0 Yes 1358 5mg Take 1 Unive rs mg tablet 2-05 tablet by ity o f 00:00: mouth 2 [place] 00 (two) Medical times Branch daily. Indication s: atrial fibrillati on aspirin 81 2020-0 Yes [id number] 81mg Take 1 [place] mg chewable 2-05 tablet by ity of tablet 00:00: mouth at 00 bedtime. Medical Branch pantoprazol 2020-0 Yes [id number] 20mg Take 1 U nivers e 20 mg EC 2-05 tablet by ity of tablet 00:00: mouth 00 daily. Medical Branch atorvastati 2020-0 Yes [id number] 80mg Take 1 U nivers n 80 mg 2-05 tablet by ity of tablet 00:00: mouth at 00 bedtime. Medical Branch ticagrelor 2020-0 Yes [id number] 90mg Take 1 [place] 90 mg [...] atrial fibrillati on aspirin 81 2020-0 Yes [id number] 81mg Take 1 [place] mg chewable 2-05 tablet by ity of tablet 00:00: mouth at bedtime. Medical Branch pantoprazol 2020-0 Yes [id number] 20mg Take 1 U nivers e 20 mg EC 2-05 tablet by ity of tablet 00:00: mouth 00 daily. Medical Branch atorvastati 2020-0 Yes [id number] 80mg Take 1 U nivers n 80 mg 2-05 tablet by ity of tablet 00:00: mouth at bedtime. Medical Branch ticagrelor 2020-0 Yes [id number] 90mg Take 1 [place] 90 mg [...] atrial fibrillati on aspirin 81 2020-0 Yes [id number] 81mg Take 1 [place] mg chewable 2-05 tablet by ity of tablet 00:00: mouth at bedtime. Medical Branch pantoprazol 2020-0 Yes [id number] 20mg Take 1 U nivers e 20 mg EC 2-05 tablet by ity of tablet 00:00: mouth 00 daily. Medical Branch atorvastati 2020-0 Yes [id number] 80mg Take 1 U nivers n 80 mg 2-05 tablet by ity of tablet 00:00: mouth at bedtime. Medical Branch ticagrelor 2020-0 Yes [id number] 90mg Take 1 [place] 90 mg [...] atrial fibrillati on aspirin 81 2020-0 Yes [id number] 81mg Take 1 [place] mg chewable 2-05 tablet by ity of tablet 00:00: mouth at bedtime. Medical Branch pantoprazol 2020-0 Yes [id number] 20mg Take 1 U nivers e 20 mg EC 2-05 tablet by ity of tablet 00:00: mouth 00 daily. Medical Branch atorvastati 2020-0 Yes [id number] 80mg Take 1 U nivers n 80 mg 2-05 tablet by ity of tablet 00:00: mouth at bedtime. Medical Branch ticagrelor 2020-0 Yes [id number] 90mg Take 1 [place] 90 mg [...] atrial fibrillati on aspirin 81 2020-0 Yes [id number] 81mg Take 1 [place] mg chewable 2-05 tablet by ity of tablet 00:00: mouth at [place] bedtime. Medical Branch pantoprazol 2020-0 Yes [id number] 20mg Take 1 U nivers e 20 mg EC 2-05 tablet by ity of tablet 00:00: mouth 00 daily. Medical Branch atorvastati 2020-0 Yes [id number] 80mg Take 1 U nivers n 80 mg 2-05 tablet by ity of tablet 00:00: mouth at [place] bedtime. Medical Branch apixaban 5 2020-0 Yes [id number] 5mg Take 1 Unive rs mg tablet 2-05 tablet by ity o f 00:00: mouth 2 (two) Medical times Branch daily. Indication s: atrial fibrillati on aspirin 81 2020-0 Yes [id number] 81mg Take 1 [place] mg chewable 2-05 tablet by ity of tablet 00:00: mouth at [place] bedtime. Medical Branch pantoprazol 2020-0 Yes [id number] 20mg Take 1 U nivers e 20 mg EC 2-05 tablet by ity of tablet 00:00: mouth daily. Medical Branch atorvastati 2020-0 Yes [id number] 80mg Take 1 U nivers n 80 mg 2-05 tablet by ity of tablet 00:00: mouth at [place] bedtime. Medical Branch apixaban 5 2020-0 Yes [id number] 5mg Take 1 Unive rs mg tablet 2-05 tablet by ity o f 00:00: mouth 2 (two) Medical times Branch daily. Indication s: atrial fibrillati on aspirin 81 2020-0 Yes [id number] 81mg Take 1 [place] mg chewable 2-05 tablet by ity of tablet 00:00: mouth at [place] bedtime. Medical Branch pantoprazol 2020-0 Yes [id number] 20mg Take 1 U nivers e 20 mg EC 2-05 tablet by ity of tablet 00:00: mouth [place] 00 daily. Medical Branch atorvastati 2020-0 Yes [id number] 80mg Take 1 U nivers n 80 mg 2-05 tablet by ity of tablet 00:00: mouth at [place] bedtime. Medical Branch apixaban 5 2020-0 Yes [id number] 5mg Take 1 Unive rs mg tablet 2-05 tablet by ity o f 00:00: mouth 2 (two) Medical times Branch daily. Indication s: atrial fibrillati on aspirin 81 2020-0 Yes [id number] 81mg Take 1 [place] mg chewable 2-05 tablet by ity of tablet 00:00: mouth at [place] bedtime. Medical [facility] pantoprazol 2020-0 Yes [id number] 20mg Take 1 U nivers e 20 mg EC 2-05 tablet by ity of tablet 00:00: mouth 00 daily. Medical Branch atorvastati 2020-0 Yes [id number] 80mg Take 1 U nivers n 80 mg 2-05 tablet by ity of tablet 00:00: mouth at [place] bedtime. Medical Branch apixaban 5 2020-0 Yes 1358 5mg Take 1 Unive rs mg tablet 2-05 tablet by ity o f 00:00: mouth 2 (two) Medical times Branch daily. Indication s: atrial fibrillati on aspirin 81 2020-0 Yes [id number] 81mg Take 1 [facility] [place] mg chewable 2-05 tablet by ity of tablet 00:00: mouth at [place] bedtime. Medical Branch pantoprazol 2020-0 Yes [id number] 20mg Take 1 U nivers e 20 mg EC 2-05 tablet by ity of tablet 00:00: mouth 00 daily. Medical Branch atorvastati 2020-0 Yes [id number] 80mg Take 1 U nivers n 80 mg 2-05 tablet by ity of tablet 00:00: mouth at [place] bedtime. Medical [facility] apixaban 5 2020-0 Yes 1358 5mg Take 1 Unive rs mg tablet 2-05 tablet by ity o f 00:00: mouth 2 (two) Medical times Branch daily. Indication s: atrial fibrillati on aspirin 81 2020-0 Yes [id number] 81mg Take 1 [facility] [place] mg chewable 2-05 tablet by ity of tablet 00:00: mouth at [place] bedtime. Medical [facility] atorvastati 2020-0 Yes [id number] 80mg Take 1 U nivers n 80 mg 2-05 tablet by ity of tablet 00:00: mouth at [place] bedtime. Medical [facility] apixaban 5 2020-0 Yes 1358 5mg Take 1 Un[facility] rs mg tablet 2-05 tablet by ity o f 00:00: mouth 2 (two) Medical times Branch daily. Indication s: atrial fibrillati on aspirin 81 2020-0 Yes [id number] 81mg Take 1 [facility] [place] mg chewable 2-05 tablet by ity of tablet 00:00: mouth at [place] bedtime. Medical Branch atorvastati 2020-0 Yes [id number] 80mg Take 1 U nivers n 80 mg 2-05 tablet by ity of tablet 00:00: mouth at [place] bedtime. [facility] apixaban 5 2020-0 Yes 1358 5mg Take 1 Unive rs mg tablet 2-05 tablet by ity o f 00:00: mouth 2 (two) Medical times Branch daily. Indication s: atrial fibrillati on aspirin 81 2020-0 Yes [id number] 81mg Take 1 [facility] [place] mg chewable 2-05 tablet by ity of tablet 00:00: mouth at [place] bedtime. Medical [facility] atorvastati 2020-0 Yes [id number] 80mg Take 1 U nivers n 80 mg 2-05 tablet by ity of tablet 00:00: mouth at [place] bedtime. Medical [facility] apixaban 5 2020-0 Yes 1358 5mg Take 1 Unive rs mg tablet 2-05 tablet by ity o f 00:00: mouth 2 (two) Medical times Branch daily. Indication s: atrial fibrillati on aspirin 81 2020-0 Yes [id number] 81mg Take 1 [facility] [place] mg chewable 2-05 tablet by ity of tablet 00:00: mouth at [place] bedtime. [facility] atorvastati 2020-0 Yes [id number] 80mg Take 1 U nivers n 80 mg 2-05 tablet by ity of tablet 00:00: mouth at [place] bedtime. Medical [facility] apixaban 5 2020-0 Yes 1358 5mg Take 1 Un[facility] rs mg tablet 2-05 tablet by ity o f 00:00: mouth 2 (two) Medical times Branch daily. Indication s: atrial fibrillati on aspirin 81 2020-0 Yes [id number] 81mg Take 1 [facility] [place] mg chewable 2-05 tablet by ity of tablet 00:00: mouth at [place] bedtime. Medical Branch atorvastati 2020-0 Yes [id number] 80mg Take 1 U nivers n 80 mg 2-05 tablet by ity of tablet 00:00: mouth at [place] bedtime. Medical Branch apixaban 5 2020-0 Yes 1358 5mg Take 1 [facility] rs mg tablet 2-05 tablet by ity o f 00:00: mouth 2 (two) Medical times Branch daily. Indication s: atrial fibrillati on aspirin 81 2020-0 Yes [id number] 81mg Take 1 [facility] [place] mg chewable 2-05 tablet by ity of tablet 00:00: mouth at [place] bedtime. Medical [facility] atorvastati 2020-0 Yes [id number] 80mg Take 1 U nivers n 80 mg 2-05 tablet by ity of tablet 00:00: mouth at [place] bedtime. Medical [facility] apixaban 5 2020-0 Yes 1358 5mg Take 1 [facility] rs mg tablet 2-05 tablet by ity o f 00:00: mouth 2 (two) Medical times Branch daily. Indication s: atrial fibrillati on aspirin 81 2020-0 Yes [id number] 81mg Take 1 Un [place] mg chewable 2-05 tablet by ity of tablet 00:00: mouth at [place] bedtime. Medical [facility] atorvastati 2020-0 Yes [id number] 80mg Take 1 U nivers n 80 mg 2-05 tablet by ity of tablet 00:00: mouth at [place] bedtime. Medical Branch apixaban 5 2020-0 Yes 1358 5mg Take 1 [facility] rs mg tablet 2-05 tablet by ity o f 00:00: mouth 2 (two) Medical times Branch daily. Indication s: atrial fibrillati on aspirin 81 2020-0 Yes [id number] 81mg Take 1 [facility] [place] mg chewable 2-05 tablet by ity of tablet 00:00: mouth at [place] bedtime. Medical Branch atorvastati 2020-0 Yes [id number] 80mg Take 1 U nivers n 80 mg 2-05 tablet by ity of tablet 00:00: mouth at [place] 00 bedtime. Medical Branch apixaban 5 2020-0 Yes 1358 5mg Take 1 [facility] rs mg tablet 2-05 tablet by ity o f 00:00: mouth 2 (two) Medical times Branch daily. Indication s: atrial fibrillati on atorvastati 2020-0 Yes [id number] 80mg Take 1 U nivers n 80 mg 2-05 tablet by ity of tablet 00:00: mouth at [place] 00 bedtime. Medical Branch apixaban 5 2020-0 Yes 1358 5mg Take 1 [facility] rs mg tablet 2-05 tablet by ity o f 00:00: mouth 2 (two) Medical times Branch daily. Indication s: atrial fibrillati on atorvastati 2020-0 Yes [id number] 80mg Take 1 U nivers n 80 mg 2-05 tablet by ity of tablet 00:00: mouth at [place] bedtime. Medical Branch apixaban 5 2020-0 Yes 1358 5mg Take 1 [facility] rs mg tablet 2-05 tablet by ity o f 00:00: mouth 2 (two) Medical times Branch daily. Indication s: atrial fibrillati on atorvastati 2020-0 Yes [id number] 80mg Take 1 U nivers n 80 mg 2-05 tablet by ity of tablet 00:00: mouth at [place] bedtime. Medical Branch apixaban 5 2020-0 Yes 1358 5mg Take 1 [facility] rs mg tablet 2-05 tablet by ity o f 00:00: mouth 2 (two) Medical times Branch daily. Indication s: atrial fibrillati on atorvastati 2020-0 Yes [id number] 80mg Take 1 U nivers n 80 mg 2-05 tablet by ity of tablet 00:00: mouth at [place] bedtime. [facility] ticagrelor 2020-0 Yes [id number] 90mg Take 1 [facility] [place] 90 mg [...] by ity o f 00:00: mouth 2 [place] 00 (two) Medical times Branch daily. Indication s: atrial fibrillati on aspirin 81 2020-0 Yes [id number] 81mg Take 1 [facility] [place] mg chewable 2-05 tablet by ity of tablet 00:00: mouth at [place] 00 bedtime. Medical Branch pantoprazol 2020-0 Yes [id number] 20mg Take 1 U nivers e 20 mg EC - tablet by ity of tablet 00:00: mouth [place] 00 daily. Medical Branch atorvastati 2019-0 2019- No [id number] 80mg Take 1 [facility] n 80 mg 06-26 tablet by ity of tablet 00:00: 00:00 mouth at [place] 00 :00 bedtime. Medical Branch apixaban 5 2019-2019- No 1358 5mg Take 1 Univ ers mg tablet 06-26 tablet by ity of 00:00: 00:00 mouth 2 [place] 00 :00 (two) Medical times Branch daily. Indication s: atrial fibrillati on aspirin 81 2019-0 2019- No [id number] 81mg Take 1 U nivers mg chewable 06-26 tablet by it y of tablet 00:00: 00:00 mouth at [place] 00 :00 bedtime. Medical Branch pantoprazol 2019-0 2019- No [id number] 20mg Take 1 [facility] e 20 mg EC 06-26 tablet by ity of tablet 00:00: 00:00 mouth [place] 00 :00 daily. Medical Branch ticagrelor 2019-0 2020- No [id number] 90mg Take 1 U nivers 90 mg 06-26 tablet by ity of tablet 00:00: 00:00 mouth 2 [place] 00 :00 (two) Medical times Branch daily. apixaban 5 2019-2019- No 1358 5mg Take 1 Univ ers mg tablet 06-26 tablet by ity of 00:00: 00:00 mouth 2 [place] 00 :00 (two) Medical times Branch daily. Indication s: atrial fibrillati on aspirin 81 2019-0 2020- No [id number] 81mg Take 1 U nivers mg chewable 2-06-26 tablet by it y of tablet 00:00: 00:00 mouth at [place] 00 :00 bedtime. Medical Branch pantoprazol 2019-0 2020- No [id number] 20mg Take 1 [facility] e 20 mg EC 2-05 02-05 tablet by ity of tablet 00:00: 00:00 mouth [place] 00 :00 daily for Medical 60 days. Branch ticagrelor 2019- No [id number] 90mg Take 1 U nivers 90 mg 06-26 tablet by ity of tablet 00:00: 00:00 mouth 2 [place] 00 :00 (two) Medical times Branch daily. atorvastati 2019-2019- No [id number] 80mg Take 1 Univers n 80 mg 06-26 tablet by ity of tablet 00:00: 00:00 mouth at [place] 00 :00 bedtime. Medical Branch apixaban 5 2019- No 1358 5mg Take 1 Univ ers mg tablet 06-26 tablet by ity of 00:00: 00:00 mouth 2 [place] 00 :00 (two) Medical times Branch daily for 30 days. Indication s: atrial fibrillati on apixaban 5 2019- No 1358 5mg Take 1 Univ ers mg tablet 06-26 tablet by ity of 00:00: 00:00 mouth 2 [place] 00 :00 (two) Medical times Branch daily. Indication s: atrial fibrillati on FENTanyl PF 2019- No Slow IV [facility] (SUBLIMAZE 06-25 Push, ity of (PF)) 20:27: 20:27 TITRATE - [place] injection 50 :50 FOR Medical PROCEDURE Branch USE, 1 dose, Starting Tue 2/20 at 1427, Until 2/4/20 at 1427, Routine adenosine 6 2019- No Intra-chandan Univers mg/1000 mL 06-25 rial, ity of INTRACORONA 20:14: 20:14 TITRATE - [place] RY 40 :40 FOR Medical injection PROCEDURE Branc h for CATH USE, 1 LAB dose, Starting 2/4/20 at 1414, Until 2/4/20 at 1414, Routine FENTanyl PF 2019- No Slow IV [facility] [place] (SUBLIMAZE 06-25- Push, ity of (PF)) 19:55: 19:55 TITRATE - [place] injection 00 :00 FOR Medical PROCEDURE Branch USE, 1 dose, Starting Tue 2//20 at 1355, Until Tue 2//20 at 1355, Routine midazolam 0 2020- No IV Push, Uni vers (VERSED) 06-25 TITRATE - ity o f injection 19:55: 19:55 FOR [place] 00 :00 PROCEDURE Medical USE, 1 Branch dose, Starting 06/25/19 at 1355, Until 06/25/19 at 1355, Routine heparin 2019-0 2020- No Slow IV Univer s 1,000 06-25 Push, ity of unit/mL 19:02: 19:02 TITRATE - [place] injection 31 :31 FOR Medical PROCEDURE Branch USE, 1 dose, Starting 06/25/19 at 1302, Until 06/25/19 at 1302, Routine phenylephri 2019- No Intravenou [...] dose, Starting 06/25/19 at 1234, Until Tue 220 at 1234, Routine nitroglycer 0 2020- No Intravenou Univers in (TRIDIL) 06-25 s, TITRATE i ty of 2 mg in 10 18:34: 18:34 - FOR [place] mL D5W for 53 :53 PROCEDURE Medi uriel Cardiac USE, 1 Branch Cath dose, Starting 06/25/19 at 1234, Until 06/25/19 at 1234, Routine heparin 2019-0 2020- No Slow IV Univer s 1,000 06-25 Push, ity of unit/mL 18:34: 18:34 TITRATE - [place] injection 37 :37 FOR Medical PROCEDURE Branch USE, 1 dose, Starting 2/4/20 at 1234, Until 2/4/20 at 1234, Routine verapamil 0 2020- No Intra-chandan U nivers (ISOPTIN) 06-25 rial, ity of injection 18:34: 18:34 TITRATE - [place] 27 :27 FOR Medical PROCEDURE Branch USE, 1 dose, Starting 2/4/20 at 1234, Until 2/4/20 at 1234, Routine FENTanyl PF 2020- No Slow IV Un [place] (SUBLIMAZE 06-25 Push, ity of (PF)) 18:31: 18:31 TITRATE - [place] injection 44 :44 FOR Medical PROCEDURE Branch USE, 1 dose, Starting 2/4/20 at 1231, Until 2/4/20 at 1231, Routine midazolam 2019- No IV Push, Uni vers (VERSED) 06-25 TITRATE - ity o f injection 18:31: 18:31 FOR [place] 39 :39 PROCEDURE Medical USE, 1 Branch dose, Starting 2/4/20 at 1231, Until 2/4/20 at 1231, Routine lidocaine 2019- No Infiltrati U nivers 1% (PF) 06-25 on, ity of (XYLOCAINE) 18:31: 18:31 TITRATE - [place] injection 04 :04 FOR Medical PROCEDURE Branch USE, 1 dose, Starting 2/4/20 at 1231, Until 2/4/20 at 1231, Routine FENTanyl PF 2020- No Slow IV [facility] [place] (SUBLIMAZE 06-25 Push, ity of (PF)) 18:15: 18:15 TITRATE - [place] injection 00 :00 FOR Medical PROCEDURE Branch USE, 1 dose, Starting 2/4/20 at 1215, Until 2/4/20 at 1215, Routine midazolam 2020- No IV Push, Uni vers (VERSED) 06-25 TITRATE - ity o f injection 18:15: 18:15 FOR [place] 00 :00 PROCEDURE Medical USE, 1 Branch dose, Starting Mon06/25/19 at 1215, Until Mon06/25/19 at 1215, Routine insulin NPH 2020-0 Yes 16U 16 Units, U nivers (HUMULIN N) 2-04 Subcutaneo it y of injection 15:00: us, QAM, [place] 16 Units 00 First dose Medic al on Mon06/25/19 at 0900, Until Discontinu ed, Routine perflutren 2020-0 2020- No 3mL 3 mL, IV Un [place] protein-A 06-25 Push, ity of microsphr 15:00: 14:50 ONCE, 1 [place] (OPTISON) 00 :00 dose, Mon Medic al injection 3 06/25/19 at [facility] mL 0900, Routine insulin 2020-0 Yes 6U 6 Units, Univer s regular -04 Subcutaneo ity of human 14:00: us, BID [place] (HUMULIN R) 00 MEALS, Medica l injection 6 First dose Br anch Units on Mon06/25/19 at 0800, Until Discontinu ed, Routine KCL 2020-0 2020- No 40meq 40 mEq, Univers (KLOR-CON 06-25- Oral, Q4H, ity of M20) tablet 14:00: 21:59 2 doses, [place] 40 mEq 00 :00 First dose Medical on Mon [place] 06/25/19 at 0800, Last dose on Mon06/25/19 at 1200, Routine metoclopram 2020-0 Yes 10mg 10 mg, Univ ers dora HCl 04 Oral, AC, ity of (REGLAN) 13:30: First dose [place] as tablet 10 00 on Mon Medical mg 06/25/19 at Branch 0730, Until Discontinu ed, Routine magnesium 2020-0 2020- No 2g 2 g, IV Univ ers sulfate in 06-25-04 Piggyback, it y of water 2 12:15: 11:35 ONCE, 1 [place] gram/50 mL 00 :00 dose, Mon Medi uriel (4 %) 06/25/19 at Branch infusion 2 0615, g Routine levothyroxi 2020-0 Yes 50ug 50 mcg, Uni vers ne -04 Oral, ity of (SYNTHROID) 12:00: QAM-0600, [place] tablet 50 00 First dose Medi uriel mcg on Mon [place] 06/25/19 at 0600, Until Discontinu ed, Routine lactated 2019-0 2020- No 1000mL at 100 [facility] ers ringers IV 2-04 02-04 mL/hr, ity of infusion 07:15: 07:38 1,000 mL, [place] as 1,000 mL 00 :00 IV Medical Infusion, [place] ONCE, 1 dose, 06/25/19 at 0115, Routine heparin 2019-0 2020- No 12U/kg/ 12 Univer s 25,000 2-04 02-05 h Units/kg/h ity of unit/250 mL 03:30: 22:00 r ?77.1 kg [place] (Premixed 00 :04 (9.252 Medical Bag) in D5W mL/hr, Branch weight rounded to based 9.25 dosing ACS mL/hr), IV protocol Infusion, CONTINUOUS , Starting Mon06/24/19 at 2130, Until Mon06/26/19 at 1600 Sliding 2020-0 Yes Subcutaneo Univ ers Scale 2-04 us, TID ity of Insulin - 03:00: MEALS+HS, [place] Aspart 00 First dose Medical (NOVOLOG) + on Mon [facility] 06/24/19 at Testing 2100, Until Discontinu ed, Routine aspirin 2020-0 Yes 81mg 81 mg, Univers chewable 2-04 Oral, QHS, ity o f tablet 81 03:00: First dose [place] mg 00 on [facility] 06/24/19 at Branch 2100, Until Discontinu ed, Routine morpHINE 2019-2019- No 4mg 4 mg, Slow Un [place] injection 4 - 02-04 IV Push, ity of mg 03:00: 02:22 ONCE, 1 [place] 00 :00 dose, [facility] 06/24/19 at Branch 2100, STAT insulin NPH 2019-0 2020- No 14U 14 Units, Univers (HUMULIN N) 2- 02-04 Subcutaneo i ty of injection 03:00: 04:55 us, [place] 14 Units 00 :24 QAM+HS, Medical First dose Branch on [facility] 06/24/19 at 2100, Until Discontinu ed, Routine heparin 2019-0 2020- No 4000U 4,000 Univers 1000 2-04 02-04 Units, IV ity of unit/mL 02:30: 03:00 Push, [place] injection 00 :00 ONCE, 1 Medical Soln 4,000 dose, [facility] Bran ch Units 06/24/19 at 2030, Routine heparin 2020-0 Yes 3000U FOR Univers (1,000 2-04 REBOLUSING ity of unit/mL, 10 02:18: , Starting [place] mL vial) 09 Mon06/24/19 Medic al for at 2018, Branch Rebolusing Until Discontinu ed, Routine
Dosing based on aPTT testing parameters (refer to continuous heparin drip order).
venlafaxine 2020-0 Yes 75mg 75 mg, Univ ers (EFFEXOR) 2-04 Oral, BID, ity of tablet 75 02:00: First dose [place] mg 00 on [facility] 06/24/19 at [place] 1999, Until Discontinu ed, Routine ticagrelor 2020-0 Yes 90mg 90 mg, Unive rs (BRILINTA) 2-04 Oral, BID, ity of tablet 90 02:00: First dose [place] mg 00 on [facility] 06/24/19 at [place] 1999, Until Discontinu ed, Routine famotidine 2020-0 2020- No 20mg 20 mg, Univ ers (PEPCID AC) 2- 02-05 Oral, BID, i ty of tablet 20 02:00: 16:25 First dose [place] mg 00 :14 on [facility] 06/24/19 at [place] 1999, Until Discontinu ed, Routine morpHINE 2020-0 Yes 2mg 2 mg, Slow Uni vers injection 2 2-04 IV Push, ity of mg 01:49: Q4HPRN, [place] 53 Starting Medical [facility] 06/24/19 Branch at 1949, Until Discontinu ed, Routine, Chest pain, angina nitroglycer 2020-0 Yes .4mg 0.4 mg, Uni vers in 2-04 Sublingual ity of (NITROSTAT) 01:47: , Q5MIN [place] J as sublingual 48 PRN, Medical tablet 0.4 Starting Branc h mg [facility] 06/24/19 at 1947, Until Discontinu ed, Routine, Chest pain dextrose 2020-0 Yes 250mL 250 mL, IV Un char[place] 10% (D10W) 2-04 Infusion, ity of bolus 01:46: PRN - SEE [place] infusion 53 INSTRUCTIO Medic al 250 mL NS, Branch hypoglycem ia, Starting Mon06/24/19 at 194
De xtrose 10% 250 mL bag contains:& [...] 1 Mon 06/24/19 Br anch mg at 1945, Until Discontinu ed, PIERRE, Blood Glucose < or = 70 mg/dL and patient is unable to swallow or has mental changes. ondansetron 2020-0 Yes 4mg 4 mg, Slow Univers (ZOFRAN 2-04 IV Push, ity of (PF)) 01:46: Q6HPRN, [place] injection 4 39 Starting Medi uriel mg 06/24/19 Branch at 194, Until Discontinu ed, Routine, Nausea and Vomiting (N/V) acetaminoph 2020-0 Yes 650mg 650 mg, Un char[facility] en 2-04 Oral, ity of (TYLENOL) 01:46: Q6HPRN, [place] tablet 650 29 Starting Medic al mg 06/24/19 Branch at 194, Until Discontinu ed, Routine, Pain (scale 1-3) magnesium 2020-0 2020- No 1g 8 mEq (1 Uni vers sulfate 4 2-04 02-04 g), IV ity of mEq/mL (50 00:00: 00:00 Piggyback, [place] %) 00 :00 ONCE, 1 Medical injection 8 dose, Mon [facility] mEq 06/24/19 at 1800, STAT ondansetron 2020-0 2020- No 4mg 4 mg, Slow Univers (ZOFRAN 2-03 02-03 IV Push, ity of (PF)) 22:30: 21:25 ONCE, 1 [place] injection 4 00 :00 dose, Mon Med ical mg 06/24/19 at Branch 1630, PIERRE morpHINE 2019-0 2020- No 4mg 4 mg, Slow Un char[facility] injection 4 2-03 02-03 IV Push, ity of mg 22:30: 21:25 ONCE, 1 [place] 00 :00 dose, Mon Medical 06/24/19 at Branch 1630, STAT NaCl 0.9% 0 2020- No 1000mL at 999 Uni vers (NS) bolus 2-03 02-03 mL/hr, ity of infusion 21:15: 22:42 1,000 mL, Juan J as 1,000 mL 00 :00 IV Medical Infusion, [place] ONCE, 1 dose, 06/24/19 at 1515, PIERRE insulin NPH 2018- Yes [id number] Inject SQ Univers 100 unit/mL -21 16u qam ity o f injection 00:00: and 14u [facility] insulin NPH 2018- Yes [id number] Inject SQ Univers 100 unit/mL -21 16u qam ity o f injection 00:00: and 14u [facility] insulin NPH 2018- Yes [id number] Inject SQ Univers 100 unit/mL 1-21 16u qam ity o f injection 00:00: and 14u [facility] insulin NPH 2018- Yes [id number] Inject SQ Univers 100 unit/mL 1-21 16u qam ity o f injection 00:00: and 14u [facility] insulin NPH 2018- Yes [id number] Inject SQ Univers 100 unit/mL 1-21 16u qam ity o f injection 00:00: and 14u [facility] insulin NPH 2018- Yes [id number] Inject SQ Univers 100 unit/mL 1-21 16u qam ity o f injection 00:00: and 14u [facility] insulin NPH 2018- Yes [id number] Inject SQ Univers 100 unit/mL 1-21 16u qam ity o f injection 00:00: and 14u [facility] insulin NPH 2018- Yes [id number] Inject SQ Univers 100 unit/mL 1-21 16u qam ity o f injection 00:00: and 14u [facility] insulin NPH 2018- Yes [id number] Inject SQ Univers 100 unit/mL 1-21 16u qam ity o f injection 00:00: and 14u [facility] insulin NPH 2019- Yes [id number] Inject SQ Univers 100 unit/mL 1-21 16u qam ity o f injection 00:00: and 14u [facility] insulin NPH 2019- Yes [id number] Inject SQ Univers 100 unit/mL 1-21 16u qam ity o f injection 00:00: and 14u [facility] Branch insulin NPH 2019- Yes [id number] Inject SQ Univers 100 unit/mL 1-21 16u qam ity o f injection 00:00: and 14u [facility] Branch insulin NPH 2019- Yes [id number] Inject SQ Univers 100 unit/mL 1-21 16u qam ity o f injection 00:00: and 14u [facility] Branch insulin NPH 2019- Yes [id number] Inject SQ Univers 100 unit/mL 1-21 16u qam ity o f injection 00:00: and 14u [facility] Branch insulin NPH 2019- Yes [id number] Inject SQ Univers 100 unit/mL 1-21 16u qam ity o f injection 00:00: and 14u [facility] Branch insulin NPH 2019- Yes [id number] Inject SQ Univers 100 unit/mL 1-21 16u qam ity o f injection 00:00: and 14u [facility] Branch insulin NPH 2019- Yes [id number] Inject SQ Univers 100 unit/mL 1-21 16u qam ity o f injection 00:00: and 14u [facility] Branch insulin NPH 2019- Yes [id number] Inject SQ Univers 100 unit/mL 1-21 16u qam ity o f injection 00:00: and 14u [facility] Branch insulin NPH 2019- Yes [id number] Inject SQ Univers 100 unit/mL 1-21 16u qam ity o f injection 00:00: and 14u [facility] Branch insulin NPH 2019- Yes [id number] Inject SQ Univers 100 unit/mL 1-21 16u qam ity o f injection 00:00: and 14u [facility] Branch insulin NPH 2019- Yes [id number] Inject SQ Univers 100 unit/mL 1-21 16u qam ity o f injection 00:00: and 14u [place] 00 qpm Medical Branch insulin NPH 2018-05 2020- No [id number] Inject SQ Univers 100 unit/mL 06-11 16u qam ity of injection 00:00: 00:00 and 14u [place] 00 :00 q Medical Branch levoFLOXaci 2018-05 2020- No [id number] 500mg Take 1 Univers n 500 mg 06-11 [id number] tablet by ity of tablet 00:00: 00:00 mouth [place] 00 :00 every 24 Medical (twenty-fo Branch ur) hours. HYDROcodone Yes [id number] 1{tbl} Take 1 Univers -acetaminop 9-26 tablet by ity of hen (Media Armor) 00:00: mouth [place] 5-325 mg 00 every 6 Medical tablet (six) Branch hours as needed for Pain (scale 7-10). HYDROcodone Yes [id number] 1{tbl} Take 1 Univers -acetaminop 9-26 tablet by ity of hen (NORCO) 00:00: mouth [place] 5-325 mg 00 every 6 Medical tablet (six) Branch hours as needed for Pain (scale 7-10). HYDROcodone Yes [id number] 1{tbl} Take 1 Univers -acetaminop 9-26 tablet by ity of hen (NORCO) 00:00: mouth [place] 5-325 mg 00 every 6 Medical tablet (six) Branch hours as needed for Pain (scale 7-10). HYDROcodone Yes [id number] 1{tbl} Take 1 Univers -acetaminop 9-26 tablet by ity of hen (NORCO) 00:00: mouth [place] 5-325 mg 00 every 6 Medical tablet (six) Branch hours as needed for Pain (scale 7-10). HYDROcodone Yes [id number] 1{tbl} Take 1 Univers -acetaminop 9-26 tablet by ity of hen (NORCO) 00:00: mouth [place] 5-325 mg 00 every 6 Medical tablet (six) Branch hours as needed for Pain (scale 7-10). HYDROcodone Yes [id number] 1{tbl} Take 1 Univers -acetaminop 9-26 tablet by ity of hen (NORCO) 00:00: mouth [place] 5-325 mg 00 every 6 Medical tablet (six) Branch hours as needed for Pain (scale 7-10). HYDROcodone 2020- No [id number] 1{tbl} Take 1 Univers -acetaminop 02-14- tablet by it y of hen (NORCO) 00:00: 00:00 mouth [place] 5-325 mg 00 :00 every 6 Medical tablet (six) Branch hours as needed for Pain (scale 7-10). aspirin 81 2020- No [id number] 81mg Take 1 Univers mg chewable 02-11 07 tablet by it y of tablet 00:00: 00:00 mouth at [place] 00 :00 bedtime. Medical Branch ondansetron 2019- No 4mg 4 mg, Slow Univers (ZOFRAN 02-06 IV Push, ity of (PF)) 01:15: 00:16 ONCE, 1 [place] injection 4 00 :00 dose, Tue Med ical mg 02/05/19 at Branch 2014, PIERRE morpHINE 2018- No 4mg 4 mg, Slow [place] injection 4 02-06 IV Push, ity of mg 01:15: 00:16 ONCE, 1 [place] 00 :00 dose, Tue Medical 02/05/19 at Branch 2014, STAT acetaminoph Yes [id number] 1{tbl} Take 1 Univers en-codeine 9-17 tablet by ity of 300-30 mg 00:00: mouth [place] tablet 00 every 4 Medical (four) Branch hours as needed for Pain (scale 4-6). acetaminoph Yes [id number] 1{tbl} Take 1 Univers en-codeine 9-17 tablet by ity of 300-30 mg 00:00: mouth [place] tablet 00 every 4 Medical (four) Branch hours as needed for Pain (scale 4-6). GABAPENTIN 2018- Yes 800mg Take 800 Un [...] [place] 30 every Medical morning. Branch GABAPENTIN 2019-0 Yes 800mg Take 800 [place] ORAL 9-10 mg by ity of 19:55: mouth 2 [place] 30 (two) Medical times [place] daily. venlafaxine 2019-0 Yes 75mg Take 75 mg Univers 75 mg 9-10 by mouth 2 ity of tablet 19:55: (two) [place] 30 times Medical daily. Branch levothyroxi 2019-0 Yes 50ug Take 50 Uni vers ne 50 mcg 9-10 mcg by ity of tablet 19:55: mouth [place] 30 every Medical morning. Branch GABAPENTIN 2019-0 Yes 800mg Take 800 [place] ORAL 9-10 mg by ity of 19:55: mouth 2 [place] 30 (two) Medical times [place] daily. venlafaxine 2019-0 Yes 75mg Take 75 mg Univers 75 mg 9-10 by mouth 2 ity of tablet 19:55: (two) [place] 30 times Medical daily. Branch levothyroxi 2019-0 Yes 50ug Take 50 Uni vers ne 50 mcg 9-10 mcg by ity of tablet 19:55: mouth [place] 30 every Medical morning. Branch GABAPENTIN 2019-0 Yes 800mg Take 800 [place] ORAL 9-10 mg by ity of 19:55: mouth 2 [place] 30 (two) Medical times [place] daily. venlafaxine 2019-0 Yes 75mg Take 75 mg [facility] 75 mg 9-10 by mouth 2 ity of tablet 19:55: (two) [place] 30 times Medical daily. Branch levothyroxi 2019-0 Yes 50ug Take 50 Uni vers ne 50 mcg 9-10 mcg by ity of tablet 19:55: mouth [place] 30 every Medical morning. Branch KCL 2019-0 2019- No 40meq 40 mEq, Univers (KLOR-CON 01-29 09-10 Oral, ity of M20) tablet 12:15: 13:40 ONCE, 1 [place] 40 mEq 00 :00 dose, [facility] 01/29/19 at [place] 0730, Routine ticagrelor 2019-0 Yes 90mg 90 mg, Unive rs (BRILINTA) 9-10 Oral, BID, ity of tablet 90 01:00: First dose [place] mg 00 on Mon [facility] 01/28/19 at Branch 2000, Until Discontinu ed, Routine metoprolol 2019-0 Yes [id number] 25mg Take 1 [facility] succinate 9-10 07 tablet by ity o f XL 25 mg 24 00:00: mouth 2 [place] hr tablet 00 (two) Medical times Branch daily. aspirin 81 2018- Yes [id number] 81mg Take 1 [facility] mg chewable 9-10 07 tablet by ity of tablet 00:00: mouth at [place] 00 bedtime. Medical Branch ticagrelor 2018- Yes [id number] 90mg Take 1 [facility] 90 mg 9-10 07 tablet by ity of tablet 00:00: mouth 2 [place] 00 (two) Medical times Branch daily. metoprolol 2018- Yes [id number] 25mg Take 1 [facility] succinate 9-10 07 tablet by ity o f XL 25 mg 24 00:00: mouth 2 [place] hr tablet 00 (two) Medical times Branch daily. aspirin 81 Yes [id number] 81mg Take 1 [facility] mg chewable 9-10 07 tablet by ity of tablet 00:00: mouth at [place] 00 bedtime. Medical Branch ticagrelor Yes [id number] 90mg Take 1 [facility] 90 mg 9-10 07 tablet by ity of tablet 00:00: mouth 2 [place] 00 (two) Medical times Branch daily. metoprolol 2018- Yes [id number] 25mg Take 1 [facility] succinate 9-10 07 tablet by ity o f XL 25 mg 24 00:00: mouth 2 [place] hr tablet 00 (two) Medical times Branch daily. aspirin 81 2018- Yes [id number] 81mg Take 1 [facility] mg chewable 9-10 07 tablet by ity of tablet 00:00: mouth at [place] 00 bedtime. Medical Branch ticagrelor Yes [id number] 90mg Take 1 [facility] 90 mg 9-10 07 tablet by ity of tablet 00:00: mouth 2 [place] 00 (two) Medical times Branch daily. metoprolol 2018- Yes [id number] 25mg Take 1 [facility] succinate 9-10 07 tablet by ity o f XL 25 mg 24 00:00: mouth 2 [place] hr tablet 00 (two) Medical times Branch daily. aspirin 81 2018- Yes [id number] 81mg Take 1 [facility] mg chewable 9-10 07 tablet by ity of tablet 00:00: mouth at [place] 00 bedtime. Medical Branch ticagrelor Yes [id number] 90mg Take 1 [facility] 90 mg 9-10 07 tablet by ity of tablet 00:00: mouth 2 [place] 00 (two) Medical times Branch daily. metoprolol 2019- No [id number] 25mg Take 1 [facility] succinate 9-10 - 07 tablet by ity of XL 25 mg 24 00:00: 00:00 mouth 2 [place] hr tablet 00 :00 (two) Medical times Branch daily. ticagrelor 2019- No [id number] 90mg Take 1 [facility] 90 mg 9-10 - 07 tablet by ity of tablet 00:00: 00:00 mouth 2 [place] 00 :00 (two) Medical times Branch daily. atorvastati 2019- No [id number] 80mg Take 1 Univers n 80 mg 9-10 12-10 100 tablet by ity of tablet 00:00: 05:59 mouth at [place] 00 :00 [facility] Medical for 90 Branch days. atorvastati 2019- No [id number] 80mg Take 1 Univers n 80 mg 9-10 12-10 100 tablet by ity of tablet 00:00: 05:59 mouth at [place] 00 [facility] Branch [facility] atorvastati 2019- No [id number] 80mg Take 1 [facility] n 80 mg 9-10 12-10 100 tablet by ity of tablet 00:00: 05:59 mouth at [place] 00 :00 [facility] Medical for 90 Branch days. atorvastati 2019- No [id number] 80mg Take 1 Univers n 80 mg 9-10 12-10 100 tablet by ity of tablet 00:00: 05:59 mouth at [place] 00 :00 [facility] Medical for 90 Branch days. morpHINE 2019- No 2mg 2 mg, Slow [facility] injection 2 01-28 IV Push, ity of mg 22:15: 21:14 ONCE, 1 [place] 00 :00 dose, [facility] Medical 01/28/19 at Branch 1715, Routine tirofiban 2019- No .15ug/k 0.15 Univ ers (AGGRASTAT) 01-28 g/min mcg/kg/min ity of 5 mg in 100 20:45: 23:22 ?82.1 kg [place] mL NS (RTU) 00 :13 (14.778 Medic al IV infusion mL/hr, Branch rounded to 14.78 mL/hr), IV Infusion, CONTINUOUS , Starting 01/28/19 at 1545, Until 01/28/19 at 1822 ticagrelor 2018- No Oral, Unive rs (BRILINTA) 01-28 TITRATE - ity of tablet 19:26: 19:26 FOR [place] 20 :20 PROCEDURE Medical USE, 1 Branch dose, Starting 01/28/19 at 1426, Until Mon01/28/19 at 1426, Routine tirofiban 2018- No IV Univers (AGGRASTAT) 01-28 Infusion, it y of 5 mg in 100 19:22: 19:22 CONTINUOUS [place] mL NS (RTU) 02 :02 PRN, Medical IV infusion Starting Bran ch 01/28/19 at 1422, Until Mon01/28/19 at 1422 tirofiban 2018- No Intravenou U [...] 1 dose, Starting 01/28/19 at 1421, Until Mon01/28/19 at 1421, Routine heparin 2018- No Slow IV Univer s 1,000 01-28 Push, ity of unit/mL 19:01: 19:01 TITRATE - [place] injection 06 :06 FOR Medical PROCEDURE Branch USE, 1 dose, Starting 01/28/19 at 1401, Until Mon01/28/19 at 1401, Routine heparin 2018- No Slow IV Univer s 1,000 01-28 Push, ity of unit/mL 18:35: 18:35 TITRATE - [place] injection 00 :00 FOR Medical PROCEDURE Branch USE, 1 dose, Starting 01/28/19 at 1335, Until Mon01/28/19 at 1335, Routine NaCl 0.9% 2018- No [...] 1 dose, Starting 01/28/19 at 1237, Until Mon01/28/19 at 1237, Routine lidocaine 2018- No Infiltrati [...] 1 dose, Starting 01/28/19 at 1147, Until [facility] 01/28/19 at 1147, Routine midazolam 2019- No IV Push, Uni vers (VERSED) 01-28 TITRATE - ity o f injection 16:47: 16:47 FOR [place] 00 :00 PROCEDURE Medical USE, 1 Branch dose, Starting 01/28/19 at 1147, Until [facility] 01/28/19 at 1147, Routine clopidogrel 2019- No Oral, PRN, Univers (PLAVIX) 01-28 Starting ity of tablet 16:32: 16:[address] [facility] 01/28/19 [place] 09 :09 at 1132, Medical Until [facility] 01/28/19 at 1132, Routine NaCl 0.9% 2019- No 1000mL at 75 Univ ers (NS) IV 01-27 mL/hr, IV ity of infusion 14:30: 03:23 Infusion, [place] 1,000 mL 00 :00 ONCE, 1 Medical dose, [facility] 01/27/19 at 0930, Routine magnesium Yes 800mg 800 mg, Univ ers oxide 01-27 Oral, ity of (MAG-OX 14:00: DAILY, [place] 400) 40 00 First dose Medica l mg/mL oral on [facility] suspension 01/27/19 at 800 mg 0900, Until Discontinu ed, Routine proMETHazin 2019- No 25mg 25 mg, IV Univers e 01-26 Piggyback, ity of (PHENERGAN) 19:30: 19:43 ONCE NOW, [place] 25 mg in 00 :00 1 dose, Medical NaCl 0.9% Sat 01/26/19 Bran ch (NS) 50 mL at 1430, piggyback 50 mL aspirin Yes 81mg 81 mg, Univers chewable 01-26 Oral, QHS, ity o f tablet 81 02:00: First dose [place] mg 00 on Fri Medical 01/25/19 at Branch 2100, Until Discontinu ed, Routine atorvastati Yes 80mg 80 mg, Univ ers n (LIPITOR) 01-26 Oral, QHS, it y of tablet 80 02:00: First dose [place] mg 00 on Mon Medical 01/25/19 at Branch 2100, Until Discontinu ed, Routine clopidogrel 2018- 2019- No 75mg 75 mg, Uni vers (PLAVIX) 01-2609 Oral, QHS, ity of tablet 75 02:00: 19:44 First dose [place] mg 00 :34 on Mon [facility] 01/25/19 at Branch 2100, Until Discontinu ed, Routine insulin NPH 2018- Yes 12U 12 Units, U nivers (HUMULIN N) 01-25 Subcutaneo it y of injection 22:00: us, QPM, [place] 12 Units 00 First dose Medic al on Mon [place] 01/25/19 at 1700, Until Discontinu ed, Routine clopidogrel 2019- No 600mg 600 mg, U nivers (PLAVIX) 01-25 Oral, ity of tablet 600 15:04: 15:31 ONCE, 1 [place] mg 00 :00 dose, [facility] 01/25/19 at Branch 1015, PIERRE
Fa culty member approving Restricted medication : DENNIS FINLEY insulin NPH 2018- Yes 14U 14 Units, U nivers (HUMULIN N) 01-25 Subcutaneo it y of injection 14:00: us, QAM, [place] 14 Units 00 First dose Medic al on Mon [place] 01/25/19 at 0900, Until Discontinu ed, Routine pantoprazol 2018- Yes 40mg 40 mg, Univ ers e 01-25 Oral, ity of (PROTONIX) 14:00: DAILY, [place] EC tablet 00 First dose Medi uriel 40 mg on [facility] 01/25/19 at 0900, Until Discontinu ed, Routine metoprolol 2019- Yes 25mg 25 mg, Unive rs succinate 01-25 Oral, BID, ity of XL (TOPROL 13:00: First dose [place] XL) tablet [address] [facility] Medical 25 mg 01/25/19 at Branch 0800, Until Discontinu ed, Routine levothyroxi 0 Yes 50ug 50 mcg, Uni vers ne 01-25 Oral, ity of (SYNTHROID) 11:00: QAM-0600, [place] tablet 50 00 First dose Medi uriel mcg on Mon [place] 01/25/19 at 0600, Until Discontinu ed, Routine KCL 2018- No 40meq 40 mEq, IV Unive rs (POTASSIUM 01-25 Piggyback, it y of CHLORIDE) 09:06: 11:25 ONCE, 1 [place] 40 mEq in 00 :00 dose, Fri Medic al NaCl 0.9% 01/25/19 at [facility] h (NS) 0415, 250 piggyback mL KCL No 40meq 40 mEq, Univers (KLOR-CON 01-25 Oral, ity of M20) tablet 09:05: 09:16 ONCE, 1 [place] 40 mEq 00 :00 dose, [facility] Medical 01/25/19 at [place] 0415, Routine magnesium 2018- No 4g 4 g, IV Univ ers sulfate in 01-25 Piggyback, it y of water 4 05:27: 01:22 ONCE, 1 [place] gram/50 mL 00 :00 dose, Fri Medi uriel (8 %) IV 01/25/19 at [place] Piggyback 4 0030, g Routine morpHINE Yes 2mg 2 mg, Slow Uni vers injection 2 01-25 IV Push, ity of mg 05:04: Q4HPR, [address] [facility] 01/25/19 [place] at 0004, Until Discontinu ed, Routine, Pain (scale 7-10) Polyethylen Yes 17g 17 g, Unive rs e Glycol 01-25 Oral, BID, ity o f 3350 04:30: First dose [place] (MIRALAX) 00 on [facility] Medical powder 17 g 01/24/19 at [facility] 2330, Until Discontinu ed, Routine docusate Yes 100mg 100 mg, Unive rs (COLACE) 01-25 Oral, ity of capsule 100 04:30: DAILY, [place] mg 00 First dose Medical on [facility] 01/24/19 at 2330, Until Discontinu ed, Routine clopidogrel 2018- No 75mg 75 mg, Uni vers (PLAVIX) 01-25 Oral, ity of tablet 75 04:20: 05:27 ONCE, 1 [place] mg 00 :00 dose, [facility] Medical 01/24/19 at Branch 2330, PIERRE aspirin 2019-0 2019- No 81mg 81 mg, Univers chewable 01-25 Oral, ONCE ity of tablet 81 04:20: 05:27 NOW, 1 [place] mg 00 :00 dose, [facility] Medical 01/24/19 at Branch 2330, PIERRE Sliding 2018-0 Yes Subcutaneo Univ ers Scale 01-25 us, AC+HS, ity of Insulin - 04:15: First dose [place] Aspart 00 on [facility] Medical (NOVOLOG) + 01/24/19 at [facility] Fsbg 2315, Testing Until Discontinu ed, Routine traMADOL 50 2018- 2019- No 50mg Take 50 mg Univers mg tablet 01-25 by mouth ity o f 04:14: 00:00 every 6 [place] 44 :00 (six) Medical hours as Branch needed. acetaminoph 2018- Yes 650mg 650 mg, [facility] [place] en 01-25 Oral, ity of (TYLENOL) 04:08: Q6HPRN, [place] tablet 650 45 Starting Medic al mg [facility] 01/24/19 Branch at 2308, Until Discontinu ed, Routine, Pain (scale 1-3) morpHINE 2018- 2019- No 2mg 2 mg, Slow [place] injection 2 01-25 IV Push, ity of mg 03:50: 03:54 ONCE, 1 [place] 00 :00 dose, [facility] Medical 01/24/19 at Branch 2300, Routine morpHINE 2019- No 4mg 4 mg, Slow [place] injection 4 01-25-05 IV Push, ity of mg 00:45: 23:52 ONCE, 1 [place] 00 :00 dose, [facility] Medical 01/24/19 at Branch 1945, STAT ondansetron 2018- 2019- No 4mg 4 mg, Slow Univers (ZOFRAN 01-2505 IV Push, ity of (PF)) 00:45: 23:51 ONCE, 1 [place] injection 4 00 :00 dose, [facility] Med ical mg 01/24/19 at Branch 1945, PIERRE heparin 2018- 2019- No 12U/kg/ 12 Univer s 25,000 01-25 09-09 h Units/kg/h ity of unit/250 mL 00:30: 21:38 r ?79.4 kg [place] (Premixed 00 :10 (9.528 Medical Bag) in mL/hr, [place] NaCl 0.45 % rounded to weight 9.53 based mL/hr), IV dosing [facility] Infusion, protocol CONTINUOUS , Starting [place] 01/24/19 at 1930, Until 01/28/19 at 1638 aspirin 2018- 2019- No 325mg 325 mg, Unive rs tablet 325 01-25 Oral, ity of mg 00:15: 23:28 ONCE, 1 [place] 00 :00 dose, [facility] Medical 01/24/19 at Branch 1915, STAT heparin 2018- 2019- No 4000U 4,000 Univers 1000 01-24 Units, IV ity of unit/mL 23:15: 23:33 Push, [place] injection 00 :00 ONCE, 1 [facility] Soln 4,000 dose, [facility] Bran ch Units 01/24/19 at 1815, PIERRE iohexol 2018- No 120mL 120 mL, Unive rs (OMNIPAQUE 01-24 Intravenou it y of 350 23:00: 22:45 s, ONCE, 1 [place] BULK-150 00 :00 dose, [place] Medica l mL) 01/24/19 at [place] injection 1800, 120 mL Routine morpHINE 2018- 2019- No 4mg 4 mg, Slow [place] injection 4 01-24 IV Push, ity of mg 22:45: 21:57 ONCE, 1 [place] 00 :00 dose, [facility] Medical 01/24/19 at Branch 1745, STAT traMADOL 50 2018-0 Yes 50mg Take 50 mg Univers mg tablet 8-31 by mouth ity of 19:37: every 6 [place] [address] (six) Medical hours as Branch needed. GABAPENTIN 2019-0 Yes 800mg Take 800 [place] ORAL 8-31 mg by ity of 19:37: mouth 2 [place] 01 (two) Medical times [place] daily. venlafaxine 2019-0 Yes 75mg Take 75 mg Univers 75 mg 8-31 by mouth 2 ity of tablet 19:37: (two) [place] 01 times Medical daily. Branch levothyroxi 2018-0 Yes 50ug Take 50 Uni vers ne [...] mouth [place] 01 every Medical morning. Branch NaCl 0.9% 2018- [...] Until Mon01/18/19 at 2109, STAT FENTanyl PF 2019- No Slow IV [place] (SUBLIMAZE 01-19 [...] Until Mon01/18/19 at 2026, Routine metoprolol Yes [id number] 25mg Take 1 [place] succinate 8-31 tablet by ity o f XL 25 mg 24 00:00: mouth 2 [place] hr tablet 00 (two) Medical times Branch daily. clopidogrel 2018- Yes [id number] 75mg Take 1 Univers (PLAVIX) 75 8-31 100 tablet by ity of mg tablet 00:00: mouth [place] 00 daily. Medical Branch atorvastati 2018- Yes [id number] 80mg Take 1 Univers n 80 mg 8-31 100 tablet by ity of tablet 00:00: mouth at [place] 00 bedtime. Medical Branch aspirin 81 2018- Yes [id number] 81mg Take 1 Univers mg EC 8-31 100 tablet by ity of tablet 00:00: mouth [place] 00 daily. Medical Branch metoprolol Yes [id number] 25mg Take 1 [place] succinate 8-31 tablet by ity o f XL 25 mg 24 00:00: mouth 2 [place] hr tablet 00 (two) Medical times Branch daily. clopidogrel 2018- Yes [id number] 75mg Take 1 Univers (PLAVIX) 75 8-31 100 tablet by ity of mg tablet 00:00: mouth [place] 00 daily. Medical Branch atorvastati Yes [id number] 80mg Take 1 Univers n 80 mg 8-31 100 tablet by ity of tablet 00:00: mouth at [place] 00 bedtime. Medical Branch aspirin 81 2018- Yes [id number] 81mg Take 1 Univers mg EC 8-31 100 tablet by ity of tablet 00:00: mouth [place] 00 daily. Medical Branch metoprolol Yes [id number] 25mg Take 1 [place] succinate 8-31 tablet by ity o f XL 25 mg 24 00:00: mouth 2 [place] hr tablet 00 (two) Medical times Branch daily. clopidogrel 2018- Yes [id number] 75mg Take 1 Univers (PLAVIX) 75 8-31 100 tablet by ity of mg tablet 00:00: mouth [place] 00 daily. Medical Branch atorvastati Yes [id number] 80mg Take 1 Univers n 80 mg 8-31 100 tablet by ity of tablet 00:00: mouth at [place] 00 bedtime. Medical Branch aspirin 81 Yes [id number] 81mg Take 1 Univers mg EC 8-31 100 tablet by ity of tablet 00:00: mouth [place] 00 daily. Medical Branch metoprolol 2019- No [id number] 25mg Take 1 U nivers succinate - 0910 tablet by ity of XL 25 mg 24 00:00: 00:00 mouth 2 [place] hr tablet 00 :00 (two) Medical times Branch daily. clopidogrel 2018- 2019- No [id number] 75mg Take 1 Univers (PLAVIX) 75 - 09-10 100 tablet by it y of mg tablet 00:00: 00:00 mouth [place] 00 :00 daily. Medical Branch atorvastati 2019- No [id number] 80mg Take 1 Univers n 80 mg 8- 09-10 100 tablet by ity of tablet 00:00: 00:00 mouth at [place] 00 :00 bedtime. Medical Branch aspirin 81 2019- No [id number] 81mg Take 1 Univers mg EC 01-19 09-10 100 tablet by ity of tablet 00:00: 00:00 mouth [place] 00 :00 daily. Medical Branch insulin NPH Yes 12U 12 Units, U nivers and regular 30 Subcutaneo it y of human 70-30 23:00: us, [place] (HUMULIN 00 DINNER, Medical 70-30 U-100 First [...] t} Oral, ity of FIBER 14:00: DAILY, [place] SINGLES) 00 First dose Medic al 3.4 gram on Fri Branch packet 1 01/18/19 at Packet 0900, Until Discontinu ed, Routine insulin NPH Yes 16U 16 Units, U nivers and regular 01-18 Subcutaneo it y of human 7030 13:00: us, [facility] [place] (HUMULIN 00 WITH Medical 70-30 U-100 BREAKFAST, Br anch INSULIN) First dose 100 unit/mL on Fri (70-30) 01/18/19 at injection 0800, 16 Units Until Discontinu ed, Routine sennosides 2018- Yes 8.6mg 8.6 mg, Uni vers (SENOKOT) [...] 2 g, IV Univ ers sulfate in 8-30 08-30 Piggyback, it y of water 2 11:15: 10:50 ONCE, 1 [place] gram/50 mL 00 :00 dose, Fri Medi uriel (4 %) 01/18/19 at [place] infusion 2 0615, g Routine bisacodyl 2019- No 5mg 5 mg, Univer s (DULCOLAX) 01-18 Oral, ity of tablet 5 mg 05:21: 05:40 ONCE, 1 [place] 00 :00 dose, Fri Medical 01/18/19 at Branch 0030, Routine Polyethylen 2019- No 17g 17 g, Univ ers e Glycol 01-18 Oral, ity of 3350 05:21: 05:40 ONCE, 1 [place] (MIRALAX) 00 :00 dose, Fri Medic al powder 17 g 01/18/19 at Br anch 0030, Routine acetaminoph Yes 650mg 650 mg, [facility] [place] en 01-18 Oral, ity of (TYLENOL) 00:02: Q6HPRN, [place] tablet 650 43 Starting Medic al mg [facility] Branch 01/17/19 at 1902, Until Discontinu ed, Routine, Pain (scale 1-3) NaCl 0.9% 2019- No 500mL at 999 Univ ers (NS) bolus 01-17 mL/hr, 500 it y of infusion 17:45: 16:43 mL, IV [place] 500 mL 00 :00 Piggyback, Medical ONCE, 1 Branch dose, [place] 01/17/19 at 1245, STAT pantoprazol Yes 40mg 40 mg, Univ ers e 01-17 Oral, ity of (PROTONIX) 14:00: DAILY, [place] EC tablet 00 First dose Medi uriel 40 mg on [place] Branch 01/17/19 at 0900, Until Discontinu ed, Routine enoxaparin Yes 40mg 40 mg, Unive rs (LOVENOX) 01-17 Subcutaneo ity of injection 14:00: us, DAILY, [place] 40 mg 00 First dose Medical on [place] Branch 01/17/19 at 0900, Until Discontinu ed, Routine clopidogrel Yes 75mg 75 mg, Univ ers (PLAVIX) 01-17 Oral, ity of tablet 75 14:00: DAILY, [place] mg 00 First dose Medical on [facility] Branch 01/17/19 at 0900, Until Discontinu ed, Routine docusate 2019- No 100mg 100 mg, Univ ers (COLACE) 01-17 Oral, BID, ity of capsule 100 13:00: 05:16 First dose [place] mg 00 :46 on [facility] Medical 01/17/19 at Branch 0800, Until Discontinu ed, Routine insulin NPH 2019- No 16U 16 Units, Univers and regular 01-17 Subcutaneo i ty of human 7030 13:00: 05:19 us, QA [place] (HUMULIN 00 :12 WITH Medical 70-30 U-100 BREAKFAST, Br anch INSULIN) First dose 100 unit/mL on [facility] (7030) 01/17/19 at injection 0800, 16 Units Until Discontinu ed, Routine morpHINE 2018- Yes 2mg 2 mg, Slow Uni vers injection 2 01-17 IV Push, ity of mg 12:43: Q4HPRN, [place] 22 Starting Medical [facility] 01/17/19 at 0743, Until Discontinu ed, Routine, Breakthrou gh Pain (scale 4-10), Chest pain glipiZIDE 2019- No 5mg 5 mg, Univer s (GLUCOTROL) 01-17 Oral, ity of tablet 5 mg 12:30: 05:07 BIDAC, [place] 00 :51 First dose Medical on [facility] 01/17/19 at 0730, Until Discontinu ed, Routine levothyroxi Yes 50ug 50 mcg, Uni vers ne 01-17 Oral, ity of (SYNTHROID) 11:00: QAM-0600, [place] tablet 50 00 First dose Medi uriel mcg on [facility] Branch 01/17/19 at 0600, Until Discontinu ed, Routine Sliding 2018- Yes Subcutaneo Univ ers Scale 01-17 us, Q4H, ity of Insulin - 09:00: First dose [place] Aspart 00 on [facility] (NOVOLOG) + 01/17/19 at Br anch Fsbg 0400, Testing Until Discontinu ed, Routine gabapentin 2018- Yes 300mg 300 mg, Uni vers (NEURONTIN) 01-17 Oral, TID, it y of capsule 300 08:45: First dose [place] mg 00 on [facility] Medical 01/17/19 at Branch 0345, Until Discontinu ed, Routine traMADol Yes 50mg 50 mg, Univers (ULTRAM) 01-17 Oral, ity of tablet 50 08:32: Q8HPRN, [place] mg 58 Starting Medical [facility] Branch 01/17/19 at 0332, Until Discontinu ed, Routine, Pain (scale 4-6), Pain (scale 7-10) ondansetron 2018-0 Yes 4mg 4 mg, Slow Univers (ZOFRAN 01-17 IV Push, ity of (PF)) 08:32: Q6HPRN, [place] injection 4 00 Starting Medi uriel mg [facility] Branch 01/17/19 at 033, Until Discontinu ed, Routine, Nausea and Vomiting (N/V) glucagon Yes 1mg 1 mg, Univers (GLUCAGEN 01-17 Intramuscu ity of DIAGNOSTIC 08:30: lar, PRN, [place] KIT) 47 Starting Medical injection 1 [facility] mg 01/17/19 at 0330, Until Discontinu ed, PIERRE, Blood Glucose < or = 70 mg/dL and patient is unable to swallow or has mental changes. dextrose 50 Yes 25mL 25 mL, Univ ers % in water 01-17 Slow IV ity of (D50W) 08:30: Push, PRN, [place] injection 47 Starting Medica l 25 mL [facility] Branch 01/17/19 at 0330, Until Discontinu ed, PIERRE, Blood Glucose < or = 70 mg/dL and patient is unable to swallow or has mental status changes. metoprolol Yes 25mg 25 mg, Unive rs succinate 01-17 Oral, BID, ity of XL (TOPROL 08:30: First dose [place] XL) tablet 00 on [facility] Medical 25 mg 01/17/19 at Branch 033, Until Discontinu ed, PIERRE atorvastati Yes 80mg 80 mg, Univ ers n (LIPITOR) 01-17 Oral, QHS, it y of tablet 80 08:30: First dose [place] mg 00 on [facility] 01/17/19 at Branch 033, Until Discontinu ed, Routine aspirin 0 Yes 81mg 81 mg, Univers chewable 01-17 Oral, QAM ity of tablet 81 08:30: WITH [place] mg 00 BREAKFAST, Medical First dose Branch on [place] 01/17/19 at 0330, Until Discontinu ed, Routine isosorbide 2019- No 30mg 30 mg, Univ ers mononitrate 01-17 Oral, BID, i ty of (IMDUR) 24 08:30: 16:19 First dose [place] hr tablet 00 :01 on [facility] Medical 30 mg 01/17/19 at Branch 0330, Until Discontinu ed, Routine FENTanyl PF 2019- No 50ug 50 mcg, [facility] [place] (SUBLIMAZE 01-17 Slow IV ity o f [...] ed, PIERRE, Chest pain insulin NPH Yes [id number] 14U inject 14 Univers 100 unit/mL 5-15 Units ity of injection 00:00: under the [place] 00 skin every Medical morning. Branch insulin NPH Yes [id number] 14U inject 14 Univers 100 unit/mL 5-15 Units ity of injection 00:00: under the [place] 00 skin every Medical morning. Branch insulin NPH Yes [id number] 14U inject 14 Univers 100 unit/mL 5-15 Units ity of injection 00:00: under the [place] 00 skin every Medical morning. Branch insulin NPH Yes [id number] 14U inject 14 Univers 100 unit/mL 5-15 Units ity of injection 00:00: under the [place] 00 skin every Medical morning. Branch insulin NPH Yes [id number] 14U inject 14 Univers 100 unit/mL 5-15 Units ity of injection 00:00: under the [place] 00 skin every Medical morning. Branch insulin NPH Yes [id number] 14U inject 14 Univers 100 unit/mL 5-15 Units ity of injection 00:00: under the [place] 00 skin every Medical morning. Branch insulin NPH Yes [id number] 14U inject 14 Univers 100 unit/mL 5-15 Units ity of injection 00:00: under the [place] 00 skin every Medical morning. Branch insulin Yes [id number] 6U inject 6 U nivers regular 5-14 Units ity of human 100 00:00: under the [place] unit/mL 00 skin 2 Medical injection (two) Branch times daily before breakfast and dinner. insulin Yes [id number] 6U inject 6 U nivers regular 5-14 Units ity of human 100 00:00: under the [place] unit/mL 00 skin 2 Medical injection (two) Branch times daily before breakfast and dinner. insulin Yes [id number] 6U inject 6 U nivers regular 5-14 Units ity of human 100 00:00: under the [place] unit/mL 00 skin 2 Medical injection (two) Branch times daily before breakfast and dinner. insulin Yes [id number] 6U inject 6 U nivers regular 5-14 Units ity of human 100 00:00: under the [place] unit/mL 00 skin 2 Medical injection (two) Branch times daily before breakfast and dinner. insulin Yes [id number] 6U inject 6 U nivers regular 5-14 Units ity of human 100 00:00: under the [place] unit/mL 00 skin 2 Medical injection (two) Branch times daily before breakfast and dinner. metformin Yes [id number] 750mg Take 1 [facility] [place] ER 750 mg 5-14 tablet by ity o f 24 hr 00:00: mouth 2 [place] tablet 00 (two) Medical times Branch daily. insulin NPH Yes [id number] 12U inject 12 Univers 100 unit/mL 5-14 Units ity of injection 00:00: under the [place] 00 skin every Medical evening. Branch insulin 0 Yes [id number] 6U inject 6 U nivers regular 5-14 Units ity of human 100 00:00: under the [place] [facility] as unit/mL 00 skin 2 Medical injection (two) Branch times daily before breakfast and dinner. metformin Yes [id number] 750mg Take 1 Un [facility] 750 mg 5-14 tablet by ity o f 24 hr 00:00: mouth 2 [place] tablet 00 (two) Medical times Branch daily. insulin NPH 0 Yes [id number] 12U inject 12 [facility] 100 unit/mL 5-14 Units ity of injection 00:00: under the [place] as 00 skin every Medical evening. Branch insulin 0 Yes [id number] 6U inject 6 U nivers regular 5-14 Units ity of human 100 00:00: under the [place] unit/mL 00 skin 2 Medical injection (two) Branch times daily before breakfast and dinner. metformin Yes [id number] 750mg Take 1 [facility] 750 mg 5-14 tablet by ity o f 24 hr 00:00: mouth 2 [place] tablet 00 (two) Medical times Branch daily. insulin NPH Yes [id number] 12U inject 12 [facility] 100 unit/mL 5-14 Units ity of injection 00:00: under the [place] as 00 skin every Medical evening. Branch insulin 0 Yes [id number] 6U inject 6 U nivers regular 5-14 Units ity of human 100 00:00: under the [place] unit/mL 00 skin 2 Medical injection (two) Branch times daily before breakfast and dinner. insulin 0 Yes [id number] 6U inject 6 U nivers regular 5-14 Units ity of human 100 00:00: under the [place] unit/mL 00 skin 2 Medical injection (two) Branch times daily before breakfast and dinner. insulin 2018-0 Yes [id number] 6U inject 6 U nivers regular 5-14 Units ity of human 100 00:00: under the [place] unit/mL 00 skin 2 Medical injection (two) Branch times daily before breakfast and dinner. insulin 2018-0 Yes [id number] 6U inject 6 U nivers regular 5-14 Units ity of human 100 00:00: under the [place] unit/mL 00 skin 2 Medical injection (two) Branch times daily before breakfast and dinner. insulin 2018-0 Yes [id number] 6U inject 6 U nivers regular 5-14 Units ity of human 100 00:00: under the [place] unit/mL 00 skin 2 Medical injection (two) Branch times daily before breakfast and dinner. insulin 2018-0 Yes [id number] 6U inject 6 U nivers regular 5-14 Units ity of human 100 00:00: under the [place] unit/mL 00 skin 2 Medical injection (two) Branch times daily before breakfast and dinner. insulin 2020- No [id number] 6U inject 6 [facility] regular 10-02 02-27 Units ity of human 100 00:00: 00:00 under the [place] unit/mL 00 :00 skin 2 Medical injection (two) Branch times daily before breakfast and dinner. insulin NPH 2019- No [id number] 12U inject 12 [facility] 100 unit/mL 10-02 09-10 Units ity of injection 00:00: 00:00 under the [place] 00 :00 skin every Medical evening. Branch metformin 2019- No [id number] 750mg Take 1 [facility] ER 750 mg 10-02 tablet by ity of 24 hr 00:00: 00:00 mouth 2 [place] tablet 00 :00 (two) Medical times Branch daily. nitroglycer Yes [id number] .4mg Place 1 Univers in 0.4 mg 5-01 tablet ity of sublingual 00:00: under the [place] tablet 00 tongue Medical every 5 Branch (five) minutes as needed for Chest pain. nitroglycer Yes [id number] .4mg Place 1 Univers in 0.4 mg 5-01 tablet ity of sublingual 00:00: under the [place] tablet 00 tongue Medical every 5 Branch (five) minutes as needed for Chest pain. nitroglycer Yes [id number] .4mg Place 1 [facility] in 0.4 mg 5-01 tablet ity of sublingual 00:00: under the [place] tablet 00 tongue Medical every 5 Branch (five) minutes as needed for Chest pain. nitroglycer Yes [id number] .4mg Place 1 [facility] in 0.4 mg 5-01 tablet ity of sublingual 00:00: under the [place] tablet 00 tongue Medical every 5 Branch (five) minutes as needed for Chest pain. nitroglycer Yes [id number] .4mg Place 1 [facility] in 0.4 mg 5-01 tablet ity of sublingual 00:00: under the [place] tablet 00 tongue Medical every 5 Branch (five) minutes as needed for Chest pain. nitroglycer Yes [id number] .4mg Place 1 [facility] in 0.4 mg 5-01 tablet ity of sublingual 00:00: under the [place] tablet 00 tongue Medical every 5 Branch (five) minutes as needed for Chest pain. nitroglycer 2019-[id number] 1 [facility] in 0.4 mg 5-01 tablet ity of sublingual 00:00: under the [place] tablet 00 tongue Medical every 5 Branch (five) minutes as needed for Chest pain. nitroglycer 2019-[id number] 1 [facility] in 0.4 mg 5-01 tablet ity of sublingual 00:00: under the [place] tablet 00 tongue Medical every 5 Branch (five) minutes as needed for Chest pain. nitroglycer 2019-[id number] 1 [facility] in 0.4 mg 5-01 tablet ity of sublingual 00:00: under the [place] tablet 00 tongue Medical every 5 Branch (five) minutes as needed for Chest pain. nitroglycer 2019-[id number] 1 [facility] in 0.4 mg 5-01 tablet ity of sublingual 00:00: under the [place] tablet 00 tongue Medical every 5 Branch (five) minutes as needed for Chest pain. nitroglycer 2019-[id number] 1 [facility] in 0.4 mg 5-01 tablet ity of sublingual 00:00: under the [place] tablet 00 tongue Medical every 5 Branch (five) minutes as needed for Chest pain. nitroglycer 2019-[id number] 1 [facility] in 0.4 mg 5-01 tablet ity of sublingual 00:00: under the [place] tablet 00 tongue Medical every 5 Branch (five) minutes as needed for Chest pain. nitroglycer 2019-[id number] 1 [facility] in 0.4 mg 5-01 tablet ity of sublingual 00:00: under the [place] tablet 00 tongue Medical every 5 Branch (five) minutes as needed for Chest pain. nitroglycer 2019-[id number] 1 [facility] in 0.4 mg 5-01 tablet ity of sublingual 00:00: under the [place] tablet 00 tongue Medical every 5 Branch (five) minutes as needed for Chest pain. nitroglycer 2019-[id number] 1 [facility] in 0.4 mg 5-01 tablet ity of sublingual 00:00: under the [place] tablet 00 tongue Medical every 5 Branch (five) minutes as needed for Chest pain. nitroglycer 2018- Yes [id number] .4mg Place 1 [facility] in 0.4 mg 5-01 tablet ity of sublingual 00:00: under the [place] tablet 00 tongue Medical every 5 Branch (five) minutes as needed for Chest pain. nitroglycer 2018- Yes [id number] .4mg Place 1 [facility] in 0.4 mg 5-01 tablet ity of sublingual 00:00: under the [place] tablet 00 tongue Medical every 5 Branch (five) minutes as needed for Chest pain. nitroglycer Yes [id number] .4mg Place 1 [facility] in 0.4 mg 5-01 tablet ity of sublingual 00:00: under the [place] tablet 00 tongue Medical every 5 Branch (five) minutes as needed for Chest pain. nitroglycer [id number] 1 [facility] in 0.4 mg 5-01 tablet ity of sublingual 00:00: under the [place] tablet 00 tongue Medical every 5 Branch (five) minutes as needed for Chest pain. nitroglycer Yes [id number] .4mg Place 1 [facility] in 0.4 mg 5-01 tablet ity of sublingual 00:00: under the [place] tablet 00 tongue Medical every 5 Branch (five) minutes as needed for Chest pain. nitroglycer Yes [id number] .4mg Place 1 [facility] in 0.4 mg 5-01 tablet ity of sublingual 00:00: under the [place] tablet 00 tongue Medical every 5 Branch (five) minutes as needed for Chest pain. pantoprazol 2018-0 Yes [id number] 40mg Take 1 [facility] e 40 mg EC 5-01 100 tablet by ity of tablet 00:00: mouth [place] 00 daily. Medical Branch nitroglycer Yes [id number] .4mg Place 1 [facility] in 0.4 mg 5-01 tablet ity of sublingual 00:00: under the [place] tablet 00 tongue Medical every 5 Branch (five) minutes as needed for Chest pain. pantoprazol 2018-0 Yes [id number] 40mg Take 1 [facility] e 40 mg EC 5-01 100 tablet by ity of tablet 00:00: mouth [place] 00 daily. Medical Branch nitroglycer 2018- Yes [id number] .4mg Place 1 [facility] in 0.4 mg 5-01 tablet ity of sublingual 00:00: under the [place] tablet 00 tongue Medical every 5 Branch (five) minutes as needed for Chest pain. pantoprazol Yes [id number] 40mg Take 1 [facility] e 40 mg EC 5- 100 tablet by ity of tablet 00:00: mouth [place] 00 daily. Medical Branch nitroglycer Yes [id number] .4mg Place 1 [facility] in 0.4 mg 5-01 tablet ity of sublingual 00:00: under the [place] tablet 00 tongue Medical every 5 Branch (five) minutes as needed for Chest pain. nitroglycer Yes [id number] .4mg Place 1 [facility] in 0.4 mg 5-01 tablet ity of sublingual 00:00: under the [place] tablet 00 tongue Medical every 5 Branch (five) minutes as needed for Chest pain. nitroglycer Yes [id number] .4mg Place 1 [facility] in 0.4 mg 5-01 tablet ity of sublingual 00:00: under the [place] tablet 00 tongue Medical every 5 Branch (five) minutes as needed for Chest pain. nitroglycer Yes [id number] .4mg Place 1 [facility] in 0.4 mg 5-01 tablet ity of sublingual 00:00: under the [place] tablet 00 tongue Medical every 5 Branch (five) minutes as needed for Chest pain. nitroglycer Yes [id number] .4mg Place 1 [facility] in 0.4 mg 5-01 tablet ity of sublingual 00:00: under the [place] tablet 00 tongue Medical every 5 Branch (five) minutes as needed for Chest pain. nitroglycer Yes [id number] .4mg Place 1 [facility] in 0.4 mg 5-01 tablet ity of sublingual 00:00: under the [place] tablet 00 tongue Medical every 5 Branch (five) minutes as needed for Chest pain. nitroglycer 2020- No [id number] .4mg Place 1 [facility] in 0.4 mg 5-01 -16 tablet ity of sublingual 00:00: 00:00 under the [place] tablet 00 :00 tongue Medical every 5 Branch (five) minutes as needed for Chest pain. pantoprazol 2019- No [id number] 40mg Take 1 Univers e 40 mg EC 5-05 30-05 100 tablet by ity of tablet 00:00: 00:00 mouth [place] 00 :00 daily. Medical Branch magnesium Yes [id number] 800mg Take 2 Un [place] oxide 400 4-15 capsules ity of mg capsule 00:00: by mouth [place] as 00 daily. Medical Branch magnesium Yes [id number] 800mg Take 2 Un [place] oxide 400 4-15 capsules ity of mg capsule 00:00: by mouth [place] as 00 daily. Medical Branch magnesium Yes [id number] 800mg Take 2 [facility] [place] oxide 400 4-15 capsules ity of mg capsule 00:00: by mouth [place] 00 daily. Medical Branch magnesium 2018- No [id number] 800mg Take 2 U nivers oxide 400 4-15 09-05 capsules ity o f mg capsule 00:00: 00:00 by mouth [place] 00 :00 daily. Medical Branch atorvastati 2019- No [id number] 80mg Take 1 Univers n 80 mg 07-17 100 tablet by ity of tablet 00:00: 00:00 mouth at [place] 00 :00 bedtime. Medical Branch clopidogrel 2019- No [id number] 75mg Take 1 Univers (PLAVIX) 75 07-17 100 tablet by it y of mg tablet 00:00: 00:00 mouth [place] 00 :00 daily. Medical Branch aspirin 81 2019- No [id number] 81mg Take 1 [facility] mg EC 07-17 100 tablet by ity of tablet 00:00: 00:00 mouth [place] 00 :00 daily. Medical Branch Aspirin 81 Aspirin 81 2018- No Alexis [address] [facility] Mg Tab.chew Mg Tab.chew 10-26 Brooke Frankel - 00:00: 00:00 Patient 00 :00 s [facility] Diflunisal Diflunisal 2015- No Todd Wynn [address] [facility] (Dolobid) (Dolobid) 01-17 [place] - 500 Mg 500 Mg 00:00: 00:00 Patient Tablet, 500 Tablet, 500 00 :00 s Mg Oral Mg Oral [facility] Ondansetron Ondansetron 2015- No Todd Wynn [address] [facility] Hcl Hcl 01-17 [facility] as Luke s - (Zofran*) 4 (Zofran*) 4 00:00: 00:00 Md needed for Patient Mg Tablet, Mg Tablet, [...] 5 Mg Tablet needed for s [facility] [place] Doxazosin Doxazosin Yes [address] [facility] Mesylate Mesylate [facility] - (Cardura) 8 (Cardura) 8 P atient Mg Tablet Mg Tablet s [facility] Fenofibrate Fenofibrate Yes [address] [facility] 200 Mg Cap 200 Mg Cap Esme es - Patient [facility] Gabapentin Gabapentin Yes [address] [facility] 800 Mg 800 Mg Hours [facility] - Tablet Tablet Patient [facility] Glipizide 5 Glipizide 5 Yes [address] [facility] Mg Tablet Mg Tablet Day [facility] - Patient [facility] Hydrocodone Hydrocodone Yes [address] [facility] Bit/Acetami Bit/Acetami Hours as [facility] - nophen nophen needed for Patie nt ([place] [facility] 10-325 10-325 Medical Tablet) 1 [...] 50 Mcg Patient Tablet Tablet s Medical [place] Lisinopril Lisinopril Yes 2.5 Daily [facility] [...] - Tablet Tablet Patient s [facility] Center Metoprolol Metoprolol Yes [address] Tartrate 25 Tartrate 25 L ukes - Mg Tablet Mg Tablet Patie nt [facility] Nitroglycer Nitroglycer Yes As Needed [facility] in in [facility] - (Nitrostat) (Nitrostat) P atient 0.4 Mg 0.4 Mg s Tab.subl Tab.subl [facility] Omeprazole Omeprazole Yes [address] 20 Mg 20 Mg [facility] - Capsule.dr Lind.dr [facility] Simvastatin Simvastatin Yes [address] [facility] 80 Mg 80 Mg [facility] - Tablet Tablet Patient [facility] Tamsulosin Tamsulosin Yes Daily [facility] Hcl 0.4 Mg Hcl 0.4 Mg Esme es - Cap.er.24h Cap.er.24h [facility] Tramadol Tramadol Yes [address] [facility] [address] Hcl Hcl Daily as [facility] - (Ultram) 50 (Ultram) 50 needed for Patient Mg Tablet Mg Tablet Pain s [facility] Venlafaxine Venlafaxine Yes [address] [facility] Hcl 75 Mg Hcl 75 Mg [facility] - Tab Tab Patient s [facility] Albuterol Albuterol 2017- No 1 Twice [...] Pa tient Mg Oral Mg Oral :00 [facility] Insulin Insulin 2017- No 40 7AM [...] :00 on s 0.4 Mg 0.4 Mg [facility] Venlafaxine Venlafaxine 37.[address] [facility] [address] Hcl 75 Mg Hcl 75 Mg 10-15 Luke s - Tab, 37.5 Tab, 37.5 00:00 Manjula ent Mg Oral Mg Oral :00 s [facility] Clindamycin Clindamycin [address] [facility] Hcl 150 Mg Hcl 150 Mg 08-16 Times A [facility] - Capsule, Capsule, 00:00 Day Patien t 300 Mg Oral 300 Mg Oral :00 [facility] Ibuprofen Ibuprofen [address] [address] 600 Mg 600 Mg 08-16 Times A [facility] - Tablet, 800 Tablet, 800 00:00 Day as Patient Mg Oral Mg Oral :00 needed for s Mild Pain [facility] ([facility]-3) [place] Ranolazine Ranolazine 999 Twice A [facility] St. (Ranexa) (Ranexa) 16 Day [facility] - 500 Mg 500 Mg 00:00 Patient Tabsr, 1000 Tabsr, 1000 :00 s Mg Oral Mg Oral [facility] Insulin Insulin [address] [facility] [address] Human Nph Human Nph 09-08 Luke s - (Humulin N) (Humulin N) 00:00 Patient 100 100 :00 s Units/Ml Units/Ml Medical Ml, 32 Ml, 32 Center Units Units Subcutaneou Subcutaneou sly sly Insulin Insulin 45 Three [facility] St. Regular, Regular, - Times A Esme es - Human Human 00:00 Day Patient (Humulin R) (Humulin R) :00 s 100 Unit/1 100 Unit/1 Med ical Ml Vial, 45 Ml Vial, 45 C enter Units Units Subcutaneou Subcutaneou sly sly Ranolazine Ranolazine [address] [facility] (Ranexa) (Ranexa) - Day [facility] - 500 Mg 500 Mg 00:00 Patient Tabsr, 1000 Tabsr, 1000 :00 s Mg Oral Mg [facility] Insulin Insulin Before [facility] Regular, Regular, 08-10 Meals [facility] - Human Human 00:00 Patient (Humulin R) (Humulin R) :00 s 100 Unit/1 100 Unit/1 Med ical Ml Vial, 20 Ml Vial, 20 C enter Units Sub-Q Units Sub-Q Omeprazole Omeprazole [facility] 40 Mg 40 Mg 06-17 [facility] - Capsule., Capsule., 00:00 Patient :00 s [facility] Insulin Insulin Twice A [facility] Glargine Glargine - Day [facility] - (Lantus) (Lantus) 00:00 Patien t 100 100 :00 s Units/Ml Units/Ml Medical Ml, 90 Unit Ml, 90 Unit C enter Subcutaneou Subcutaneou sly sly Insulin Insulin Three [facility] Regular, Regular, 12-11 Times [...] 25 Mg Oral 25 Mg Oral :00 [facility] Albuterol Albuterol As Needed [facility] Sulfate Sulfate 11-23 [...] Mg Oral Mg Oral :00 s Medical [place] Methocarbam Methocarbam No [address] [...] Mg Oral Mg Oral :00 s Medical [place] Nitroglycer Nitroglycer No .[address] [facility] in in 11-23 for Chest [facility] - (Nitrostat) (Nitrostat) 00:00 Pain Patient 0.4 Mg 0.4 Mg :00 s Tab.subl, Tab.subl, Medic al 0.4 Mg 0.4 Mg Center Sublingual Sublingual Pantoprazol Pantoprazol No 40 Daily [...] ent Gm Oral Gm Oral :00 s [facility] Temazepam Temazepam [address] [address] (Restoril) (Restoril) 11-23 Theresa kes - 30 Mg 30 Mg 00:00 Patient Capsule, 30 Capsule, 30 :00 s Mg Oral Mg [facility] Tizanidine Tizanidine [address] [facility] Hcl 4 Mg Hcl 4 Mg 11-23 [facility]ukes - Capsule, 4 Capsule, 4 00:00 Pa tient Mg Oral Mg Oral :00 s Medical [place] Trazodone Trazodone No [address] [facility] Hcl 50 Mg Hcl 50 Mg 11-23 Luke s - Tablet, 50 Tablet, 50 00:00 Pa tient Mg Oral Mg Oral :00 s [facility] Venlafaxine Venlafaxine No 37.[address] [facility] Hcl 37.5 Mg Hcl 37.5 Mg 11-23 Day [facility] - Tablet, Tablet, 00:00 Patient 37.5 Tab 37.5 Tab :00 s [facility] Cyclobenzap Cyclobenzap 2014- No [address] [address] rine Hcl 10 rine Hcl 10 -31 Times A [facility] - Mg Tablet, Mg Tablet, 00:00 Day Pa tient 10 Mg Oral 10 Mg Oral :00 s [facility] Gabapentin Gabapentin 2014- No [address] 300 Mg 300 Mg 31 Times A [facility] - Capsule, Capsule, 00:00 Day Patien t 600 Mg Oral 600 Mg Oral :00 s Medical Center Pregabalin Pregabalin No [address] [facility] (Lyrica) (Lyrica) 01-02 Day [facility] - 150 Mg 150 Mg 00:00 Patient Capsule, Capsule, :00 s 150 Mg Oral 150 Mg Oral M [facility] Zolpidem Zolpidem No [address] Tartrate Tartrate 01-02 [facility] - (Ambien) 10 (Ambien) 10 00:00 Patient Mg Tablet, Mg Tablet, :00 s 10 Mg Oral 10 Mg Oral Med [facility] Immunizations Ordered Filled Immunization Date Status Comments [facility] e Immunization Name Name Influenza Virus 2020-01-21 Completed Universit y of Vaccine 00:00:00 [facility] Influenza Virus 2020-01-21 Completed Universit y of Vaccine 00:00:00 [facility] Influenza Virus 2020-01-21 Completed Universit y of Vaccine 00:00:00 [facility] Influenza Virus 2020-01-21 Completed Universit y of Vaccine 00:00:00 [facility] Influenza Virus 2020-01-21 Completed Universit y of Vaccine 00:00:00 [facility] Influenza Virus 2020-01-21 Completed Universit y of Vaccine 00:00:00 [facility] Influenza Virus 2020-01-21 Completed Universit y of Vaccine 00:00:00 [facility] Influenza Virus 2020-01-21 Completed Universit y of Vaccine 00:00:00 [facility] Influenza Virus 2020-01-21 Completed Universit y of Vaccine 00:00:00 [facility] Influenza Virus 2020-01-21 Completed Universit y of Vaccine 00:00:00 [facility] Influenza Virus 2020-01-21 Completed Universit y of Vaccine 00:00:00 [facility] Influenza Virus 2020-01-21 Completed Universit y of Vaccine 00:00:00 [facility] Influenza Virus 2020-01-21 Completed Universit y of Vaccine 00:00:00 [facility] Influenza Virus 2020-01-21 Completed Universit y of Vaccine 00:00:00 [facility] Influenza Virus 2020-01-21 Completed Universit y of Vaccine 00:00:00 [facility] Influenza Virus 2020-01-21 Completed Universit y of Vaccine 00:00:00 [facility] Influenza Virus 2020-01-21 Completed Universit y of Vaccine 00:00:00 [facility] Influenza Virus 2020-01-21 Completed Universit y of Vaccine 00:00:00 [facility] Zoster Vaccine 2019-07-17 Completed University of Recombinant 00:00:00 [facility] Zoster Vaccine 2019-07-17 Completed University of Recombinant 00:00:00 [facility] Zoster Vaccine 2019-07-17 Completed University of Recombinant 00:00:00 [facility] Zoster Vaccine 2019-07-17 Completed University of Recombinant 00:00:00 [facility] Zoster Vaccine 2019-07-17 Completed University of Recombinant 00:00:00 [facility] Zoster Vaccine 2019-07-17 Completed University of Recombinant 00:00:00 [facility] Zoster Vaccine 2019-07-17 Completed University of Recombinant 00:00:00 [facility] Zoster Vaccine 2019-07-17 Completed University of Recombinant 00:00:00 [facility] Zoster Vaccine 2019-07-17 Completed University of Recombinant 00:00:00 [facility] Zoster Vaccine 2019-07-17 Completed University of Recombinant 00:00:00 [facility] Zoster Vaccine 2019-07-17 Completed University of Recombinant 00:00:00 [facility] Zoster Vaccine 2019-07-17 Completed University of Recombinant 00:00:00 [facility] Zoster Vaccine 2019-07-17 Completed University of Recombinant 00:00:00 [facility] Zoster Vaccine 2019-07-17 Completed University of Recombinant 00:00:00 [facility] Zoster Vaccine 2019-07-17 Completed University of Recombinant 00:00:00 [facility] Zoster Vaccine 2019-07-17 Completed University of Recombinant 00:00:00 [facility] Zoster Vaccine 2019-07-17 Completed University of Recombinant 00:00:00 [facility] Zoster Vaccine 2019-07-17 Completed University of Recombinant 00:00:00 [facility] Zoster Vaccine 2019-07-17 Completed University of Recombinant 00:00:00 [facility] Zoster Vaccine 2019-07-17 Completed University of Recombinant 00:00:00 [facility] Zoster Vaccine 2019-07-17 Completed University of Recombinant 00:00:00 [facility] Zoster Vaccine 2019-07-17 Completed University of Recombinant 00:00:00 [facility] Zoster Vaccine 2019-07-17 Completed University of Recombinant 00:00:00 [facility] Zoster Vaccine 2019-07-17 Completed University of Recombinant 00:00:00 [facility] Zoster Vaccine 2019-07-17 Completed University of Recombinant 00:00:00 [facility] Zoster Vaccine 2019-07-17 Completed University of Recombinant 00:00:00 [facility] Zoster Vaccine 2019-07-17 Completed University of Recombinant 00:00:00 [facility] Zoster Vaccine 2019-07-17 Completed University of Recombinant 00:00:00 [facility] Zoster Vaccine 2019-07-17 Completed University of Recombinant 00:00:00 [facility] Zoster Vaccine 2019-07-17 Completed University of Recombinant 00:00:00 [facility] Zoster Vaccine 2019-07-17 Completed University of Recombinant 00:00:00 [facility] Zoster Vaccine 2019-07-17 Completed University of Recombinant 00:00:00 [facility] Zoster Vaccine 2019-07-17 Completed University of Recombinant 00:00:00 [facility] Zoster Vaccine 2019-07-17 Completed University of Recombinant 00:00:00 [facility] Zoster Vaccine 2019-07-17 Completed University of Recombinant 00:00:00 [facility] Zoster Vaccine 2019-07-17 Completed University of Recombinant 00:00:00 [facility] Zoster Vaccine 2019-07-17 Completed University of Recombinant 00:00:00 [facility] Zoster Vaccine 2019-07-17 Completed University of Recombinant 00:00:00 [facility] Zoster Vaccine 2019-07-17 Completed University of Recombinant 00:00:00 [facility] Zoster Vaccine 2019-07-17 Completed University of Recombinant 00:00:00 [facility] Zoster Vaccine 2019-07-17 Completed University of Recombinant 00:00:00 [facility] Td 2019-03-29 Completed University of 00:00:00 [facility] Td 2019-03-29 Completed University of 00:00:00 [facility] Td 2019-03-29 Completed University of 00:00:00 [facility] [place] [facility] Td 2019-03-29 Completed University of 00:00:00 [facility] [place] [facility] Td 2019-03-29 Completed University of 00:00:00 [facility] [place] [facility] Td 2019-03-29 Completed University of 00:00:00 [facility] Td 2019-03-29 Completed University of 00:00:00 [place] [...] Branch Td 2019-03-29 Completed University of 00:00:00 [facility] [place] [facility] Td 2019-03-29 Completed University of 00:00:00 [facility] Td 2019-03-29 Completed University of 00:00:00 [facility] Td 2019-03-29 Completed University of 00:00:00 [facility] Td 2019-03-29 Completed University of 00:00:00 [facility] Td 2019-03-29 Completed University of 00:00:00 [facility] Td 2019-03-29 Completed University of 00:00:00 [facility] Td 2019-03-29 Completed University of 00:00:00 [facility] [place] [facility] Td 2019-03-29 Completed University of 00:00:00 [facility] [place] [facility] Td 2019-03-29 Completed University of 00:00:00 [facility] [facility] Td 2019-03-29 Completed [facility] 00:00:00 [facility] Td 2019-03-29 Completed [facility] 00:00:00 [facility] Td 2019-03-29 Completed [facility] 00:00:00 [facility] Td 2019-03-29 Completed [facility] 00:00:00 [facility] Td 2019-03-29 Completed [facility] 00:00:00 [facility] Td 2019-03-29 Completed [facility] 00:00:00 [facility] Td 2019-03-29 Completed [facility] 00:00:00 [facility] Td 2019-03-29 Completed [facility] 00:00:00 [facility] Td 2019-03-29 Completed [facility] 00:00:00 [facility] Td 2019-03-29 Completed [facility] 00:00:00 [facility] Td 2019-03-29 Completed [facility] 00:00:00 [facility] Td 2019-03-29 Completed [facility] 00:00:00 [facility] Td 2019-03-29 Completed [facility] 00:00:00 [facility] Td 2019-03-29 Completed [facility] 00:00:00 [facility] Td 2019-03-29 Completed [facility] 00:00:00 [facility] Td 2019-03-29 Completed [facility] 00:00:00 [facility] Td 2019-03-29 Completed [facility] 00:00:00 [facility] Td 2019-03-29 Completed [facility] 00:00:00 [facility] Influenza Virus 2018-02-18 Completed Universit y of Vaccine 00:00:00 [facility] Pneumococcal 2018-02-18 Completed University o f Polysaccharide, 00:00:00 [facility] PPSV23 (PNEUMOVAX) [facility] Influenza Virus 2018-02-18 Completed Universit y of Vaccine 00:00:00 [facility] Pneumococcal 2018-02-18 Completed [facility] o f Polysaccharide, 00:00:00 [facility] PPSV23 (PNEUMOVAX) [facility] Influenza Virus 2018-02-18 Completed [facility]it y of Vaccine 00:00:00 [facility] Pneumococcal 2018-02-18 Completed [facility] o f Polysaccharide, 00:00:00 [facility] PPSV23 (PNEUMOVAX) [facility] Influenza Virus 2018-02-18 Completed [facility]it y of Vaccine 00:00:00 [facility] Pneumococcal 2018-02-18 Completed [facility] o f Polysaccharide, 00:00:00 [facility] PPSV23 (PNEUMOVAX) [facility] Influenza Virus 2018-02-18 Completed [facility]it y of Vaccine 00:00:00 [facility] Pneumococcal 2018-02-18 Completed [facility] o f Polysaccharide, 00:00:00 [facility] PPSV23 (PNEUMOVAX) [facility] Influenza Virus 2018-02-18 Completed [facility]it y of Vaccine 00:00:00 [facility] Pneumococcal 2018-02-18 Completed [facility] o f Polysaccharide, 00:00:00 [facility] PPSV23 (PNEUMOVAX) [facility] Influenza Virus 2018-02-18 Completed [facility]it y of Vaccine 00:00:00 [facility] Pneumococcal 2018-02-18 Completed [facility] o f Polysaccharide, 00:00:00 [facility] ical PPSV23 (PNEUMOVAX) Branch Influenza Virus 2018-02-18 Completed Universit y of Vaccine 00:00:00 [facility] Pneumococcal 2018-02-18 Completed [facility] o f Polysaccharide, 00:00:00 [facility] PPSV23 (PNEUMOVAX) [facility] Influenza Virus 2018-02-18 Completed [facility]it y of Vaccine 00:00:00 [facility] Pneumococcal 2018-02-18 Completed [facility] o f Polysaccharide, 00:00:00 [facility] PPSV23 (PNEUMOVAX) [facility] Influenza Virus 2018-02-18 Completed [facility]it y of Vaccine 00:00:00 [facility] Pneumococcal 2018-02-18 Completed [facility] o f Polysaccharide, 00:00:00 [facility] PPSV23 (PNEUMOVAX) [place] Influenza Virus 2018-02-18 Completed [facility]it y of Vaccine 00:00:00 [facility] Pneumococcal 2018-02-18 Completed [facility] o f Polysaccharide, 00:00:00 [facility] PPSV23 (PNEUMOVAX) Branch Influenza Virus 2018-02-18 Completed [facility]it y of Vaccine 00:00:00 [facility] Pneumococcal 2018-02-18 Completed [facility] o f Polysaccharide, 00:00:00 [facility] PPSV23 (PNEUMOVAX) Branch Influenza Virus 2018-02-18 Completed [facility]it y of Vaccine 00:00:00 [facility] Pneumococcal 2018-02-18 Completed [facility] o f Polysaccharide, 00:00:00 [facility] PPSV23 (PNEUMOVAX) Branch Influenza Virus 2018-02-18 Completed [facility]it y of Vaccine 00:00:00 [facility] Pneumococcal 2018-02-18 Completed [facility] o f Polysaccharide, 00:00:00 [facility] PPSV23 (PNEUMOVAX) Branch Influenza Virus 2018-02-18 Completed [facility]it y of Vaccine 00:00:00 [facility] Pneumococcal 2018-02-18 Completed [facility] o f Polysaccharide, 00:00:00 [facility] PPSV23 (PNEUMOVAX) Branch Influenza Virus 2018-02-18 Completed [facility]it y of Vaccine 00:00:00 [facility] Pneumococcal 2018-02-18 Completed [facility] o f Polysaccharide, 00:00:00 [facility] ical PPSV23 (PNEUMOVAX) Branch Influenza Virus 2018-02-18 Completed [facility]it y of Vaccine 00:00:00 [facility] Pneumococcal 2018-02-18 Completed [facility] o f Polysaccharide, 00:00:00 [facility] PPSV23 (PNEUMOVAX) [facility] Influenza Virus 2018-02-18 Completed [facility]it y of Vaccine 00:00:00 [facility] Pneumococcal 2018-02-18 Completed [facility] o f Polysaccharide, 00:00:00 [facility] PPSV23 (PNEUMOVAX) Branch Influenza Virus 2018-02-18 Completed [facility]it y of Vaccine 00:00:00 [facility] Pneumococcal 2018-02-18 Completed [facility] o f Polysaccharide, 00:00:00 [facility] PPSV23 (PNEUMOVAX) Branch Influenza Virus 2018-02-18 Completed [facility]it y of Vaccine 00:00:00 [facility] Pneumococcal 2018-02-18 Completed [facility] o f Polysaccharide, 00:00:00 [facility] PPSV23 (PNEUMOVAX) Branch Influenza Virus 2018-02-18 Completed [facility]it y of Vaccine 00:00:00 [facility] Pneumococcal 2018-02-18 Completed [facility] o f Polysaccharide, 00:00:00 [facility] PPSV23 (PNEUMOVAX) [facility] Influenza Virus 2018-02-18 Completed [facility]it y of Vaccine 00:00:00 [facility] Pneumococcal 2018-02-18 Completed [facility] o f Polysaccharide, 00:00:00 [facility] PPSV23 (PNEUMOVAX) [facility] Influenza Virus 2018-02-18 Completed [facility]it y of Vaccine 00:00:00 [facility] Pneumococcal 2018-02-18 Completed [facility] o f Polysaccharide, 00:00:00 [facility] PPSV23 (PNEUMOVAX) [facility] Influenza Virus 2018-02-18 Completed [facility]it y of Vaccine 00:00:00 [facility] Pneumococcal 2018-02-18 Completed [facility] o f Polysaccharide, 00:00:00 [facility] PPSV23 (PNEUMOVAX) Branch Influenza Virus 2018-02-18 Completed [facility]it y of Vaccine 00:00:00 [facility] Pneumococcal 2018-02-18 Completed [facility] o f Polysaccharide, 00:00:00 [facility] PPSV23 (PNEUMOVAX) Branch Influenza Virus 2018-02-18 Completed [facility]it y of Vaccine 00:00:00 [facility] Pneumococcal 2018-02-18 Completed [facility] o f Polysaccharide, 00:00:00 [place] [facility] PPSV23 (PNEUMOVAX) Branch Influenza Virus 2018-02-18 Completed [facility]it y of Vaccine 00:00:00 [facility] Pneumococcal 2018-02-18 Completed [facility] o f Polysaccharide, 00:00:00 [facility] PPSV23 (PNEUMOVAX) Branch Influenza Virus 2018-02-18 Completed [facility]it y of Vaccine 00:00:00 [facility] Pneumococcal 2018-02-18 Completed [facility] o f Polysaccharide, 00:00:00 [facility] PPSV23 (PNEUMOVAX) Branch Influenza Virus 2018-02-18 Completed [facility]it y of Vaccine 00:00:00 [facility] Pneumococcal 2018-02-18 Completed [facility] o f Polysaccharide, 00:00:00 [facility] PPSV23 (PNEUMOVAX) Branch Influenza Virus 2018-02-18 Completed [facility]it y of Vaccine 00:00:00 [facility] Pneumococcal 2018-02-18 Completed [facility] o f Polysaccharide, 00:00:00 [facility] PPSV23 (PNEUMOVAX) Branch Influenza Virus 2018-02-18 Completed [facility] y of Vaccine 00:00:00 [facility] Pneumococcal 2018-02-18 Completed [facility] o f Polysaccharide, 00:00:00 [place] [facility] PPSV23 (PNEUMOVAX) [facility] Influenza Virus 2018-02-18 Completed [facility]it y of Vaccine 00:00:00 [facility] Pneumococcal 2018-02-18 Completed [facility] o f Polysaccharide, 00:00:00 [facility] PPSV23 (PNEUMOVAX) Branch Influenza Virus 2018-02-18 Completed [facility]it y of Vaccine 00:00:00 [facility] Pneumococcal 2018-02-18 Completed [facility] o f Polysaccharide, 00:00:00 [facility] PPSV23 (PNEUMOVAX) Branch Influenza Virus 2018-02-18 Completed [facility]it y of Vaccine 00:00:00 [facility] Pneumococcal 2018-02-18 Completed [facility] o f Polysaccharide, 00:00:00 [facility] PPSV23 (PNEUMOVAX) Branch Influenza Virus 2018-02-18 Completed [facility]it y of Vaccine 00:00:00 [facility] Pneumococcal 2018-02-18 Completed [facility] o f Polysaccharide, 00:00:00 [facility] PPSV23 (PNEUMOVAX) Branch Influenza Virus 2018-02-18 Completed [facility]it y of Vaccine 00:00:00 [facility] Pneumococcal 2018-02-18 Completed [facility] o f Polysaccharide, 00:00:00 [facility] PPSV23 (PNEUMOVAX) Branch Influenza Virus 2018-02-18 Completed [facility]it y of Vaccine 00:00:00 [facility] Pneumococcal 2018-02-18 Completed [facility] o f Polysaccharide, 00:00:00 [facility] PPSV23 (PNEUMOVAX) Branch Influenza Virus 2018-02-18 Completed [facility] y of Vaccine 00:00:00 [facility] Pneumococcal 2018-02-18 Completed [facility] o f Polysaccharide, 00:00:00 [facility] PPSV23 (PNEUMOVAX) Branch Influenza Virus 2018-02-18 Completed [facility]it y of Vaccine 00:00:00 [facility] Pneumococcal 2018-02-18 Completed [facility] o f Polysaccharide, 00:00:00 [facility] PPSV23 (PNEUMOVAX) Branch Influenza Virus 2018-02-18 Completed [facility]it y of Vaccine 00:00:00 [facility] Pneumococcal 2018-02-18 Completed [facility] o f Polysaccharide, 00:00:00 [place] [facility] PPSV23 (PNEUMOVAX) [facility] Influenza Virus 2018-02-18 Completed [facility]it y of Vaccine 00:00:00 [facility] Pneumococcal 2018-02-18 Completed [facility] o f Polysaccharide, 00:00:00 [facility] PPSV23 (PNEUMOVAX) Branch Influenza Virus 2018-02-18 Completed [facility]it y of Vaccine 00:00:00 [facility] Pneumococcal 2018-02-18 Completed [facility] o f Polysaccharide, 00:00:00 [facility] PPSV23 (PNEUMOVAX) Branch Influenza Virus 2018-02-18 Completed [facility]it y of Vaccine 00:00:00 [facility] Pneumococcal 2018-02-18 Completed [facility] o f Polysaccharide, 00:00:00 [facility] PPSV23 (PNEUMOVAX) Branch Influenza Virus 2018-02-18 Completed [facility] y of Vaccine 00:00:00 [facility] Pneumococcal 2018-02-18 Completed [facility] o f Polysaccharide, 00:00:00 [facility] PPSV23 (PNEUMOVAX) Branch Influenza Virus 2018-02-18 Completed [facility]it y of Vaccine 00:00:00 [facility] Pneumococcal 2018-02-18 Completed [facility] o f Polysaccharide, 00:00:00 [facility] ical PPSV23 (PNEUMOVAX) Branch Influenza Virus 2018-02-18 Completed Universit y of Vaccine 00:00:00 [facility] Pneumococcal 2018-02-18 Completed [facility] o f Polysaccharide, 00:00:00 [facility] ical PPSV23 (PNEUMOVAX) Branch Influenza Virus 2018-02-18 Completed [facility]it y of Vaccine 00:00:00 [facility] Pneumococcal 2018-02-18 Completed [facility] o f Polysaccharide, 00:00:00 [facility] PPSV23 (PNEUMOVAX) Branch Influenza Virus 2018-02-18 Completed [facility]it y of Vaccine 00:00:00 [facility] Pneumococcal 2018-02-18 Completed [facility] o f Polysaccharide, 00:00:00 [facility] PPSV23 (PNEUMOVAX) Branch Influenza Virus 2018-02-18 Completed [facility] y of Vaccine 00:00:00 [facility] Pneumococcal 2018-02-18 Completed [facility] o f Polysaccharide, 00:00:00 [facility] PPSV23 (PNEUMOVAX) [place] Influenza Virus 2018-02-18 Completed [facility]it y of Vaccine 00:00:00 [facility] Pneumococcal 2018-02-18 Completed [facility] o f Polysaccharide, 00:00:00 [facility] PPSV23 (PNEUMOVAX) Branch Influenza Virus 2018-02-18 Completed [facility]it y of Vaccine 00:00:00 [facility] Pneumococcal 2018-02-18 Completed [facility] o f Polysaccharide, 00:00:00 [facility] PPSV23 (PNEUMOVAX) Branch Influenza Virus 2018-02-18 Completed [facility] y of Vaccine 00:00:00 [facility] Pneumococcal 2018-02-18 Completed [facility] o f Polysaccharide, 00:00:00 [facility] PPSV23 (PNEUMOVAX) Branch Influenza Virus 2018-02-18 Completed [facility]it y of Vaccine 00:00:00 [facility] Pneumococcal 2018-02-18 Completed [facility] o f Polysaccharide, 00:00:00 [facility] PPSV23 (PNEUMOVAX) Branch Influenza Virus 2018-02-18 Completed [facility]it y of Vaccine 00:00:00 [facility] Pneumococcal 2018-02-18 Completed [facility] o f Polysaccharide, 00:00:00 [facility] PPSV23 (PNEUMOVAX) Branch Influenza Virus 2018-02-18 Completed [facility] y of Vaccine 00:00:00 [facility] Pneumococcal 2018-02-18 Completed [facility] o f Polysaccharide, 00:00:00 [facility] PPSV23 (PNEUMOVAX) Branch Influenza Virus 2018-02-18 Completed [facility] y of Vaccine 00:00:00 [facility] Pneumococcal 2018-02-18 Completed [facility] o f Polysaccharide, 00:00:00 [facility] ical PPSV23 (PNEUMOVAX) Branch Influenza Virus 2018-02-18 Completed Universit y of Vaccine 00:00:00 [facility] Pneumococcal 2018-02-18 Completed [facility] o f Polysaccharide, 00:00:00 [facility] PPSV23 (PNEUMOVAX) Branch Influenza Virus 2018-02-18 Completed [facility]it y of Vaccine 00:00:00 [facility] Pneumococcal 2018-02-18 Completed [facility] o f Polysaccharide, 00:00:00 [facility] PPSV23 (PNEUMOVAX) Branch Influenza Virus 2018-02-18 Completed [facility] y of Vaccine 00:00:00 [facility] Pneumococcal 2018-02-18 Completed [facility] o f Polysaccharide, 00:00:00 [facility] PPSV23 (PNEUMOVAX) [place] Influenza Virus 2018-02-18 Completed [facility] y of Vaccine 00:00:00 [facility] Pneumococcal 2018-02-18 Completed [facility] o f Polysaccharide, 00:00:00 [facility] PPSV23 (PNEUMOVAX) Branch Influenza Virus 2018-02-18 Completed [facility] y of Vaccine 00:00:00 [facility] Pneumococcal 2018-02-18 Completed [facility] o f Polysaccharide, 00:00:00 [facility] PPSV23 (PNEUMOVAX) Branch Influenza Virus 2018-02-18 Completed [facility]it y of Vaccine 00:00:00 [facility] Pneumococcal 2018-02-18 Completed [facility] o f Polysaccharide, 00:00:00 [facility] PPSV23 (PNEUMOVAX) Branch Influenza Virus 2018-02-18 Completed [facility]it y of Vaccine 00:00:00 [facility] Pneumococcal 2018-02-18 Completed [facility] o f Polysaccharide, 00:00:00 [facility] PPSV23 (PNEUMOVAX) Branch Influenza Virus 2018-02-18 Completed [facility]it y of Vaccine 00:00:00 [facility] Pneumococcal 2018-02-18 Completed [facility] o f Polysaccharide, 00:00:00 [facility] PPSV23 (PNEUMOVAX) Branch Influenza Virus 2018-02-18 Completed [facility]it y of Vaccine 00:00:00 [facility] Pneumococcal 2018-02-18 Completed [facility] o f Polysaccharide, 00:00:00 [facility] ical PPSV23 (PNEUMOVAX) Branch Influenza Virus 2018-02-18 Completed [facility]it y of Vaccine 00:00:00 [facility] Pneumococcal 2018-02-18 Completed [facility] o f Polysaccharide, 00:00:00 [facility] PPSV23 (PNEUMOVAX) Branch Influenza Virus 2018-02-18 Completed [facility]it y of Vaccine 00:00:00 [facility] Pneumococcal 2018-02-18 Completed [facility] o f Polysaccharide, 00:00:00 [facility] PPSV23 (PNEUMOVAX) Branch Influenza Virus 2018-02-18 Completed [facility] y of Vaccine 00:00:00 [facility] Pneumococcal 2018-02-18 Completed [facility] o f Polysaccharide, 00:00:00 [facility] PPSV23 (PNEUMOVAX) Branch Influenza Virus 2018-02-18 Completed [facility] y of Vaccine 00:00:00 [facility] Pneumococcal 2018-02-18 Completed [facility] o f Polysaccharide, 00:00:00 [facility] PPSV23 (PNEUMOVAX) Branch Influenza Virus 2018-02-18 Completed [facility]it y of Vaccine 00:00:00 [facility] Pneumococcal 2018-02-18 Completed [facility] o f Polysaccharide, 00:00:00 [facility] PPSV23 (PNEUMOVAX) [place] Influenza Virus 2008-03-19 Completed Universit y of Vaccine 00:00:00 [facility] Influenza Virus 2008-03-19 Completed [facility]it y of Vaccine 00:00:00 [facility] Influenza Virus 2008-03-19 Completed [facility] y of Vaccine 00:00:00 [facility] Influenza Virus 2008-03-19 Completed [facility] y of Vaccine 00:00:00 [facility] Influenza Virus 2008-03-19 Completed [facility] y of Vaccine 00:00:00 [facility] Influenza Virus 2008-03-19 Completed [facility] y of Vaccine 00:00:00 [facility] Influenza Virus 2008-03-19 Completed [facility] y of Vaccine 00:00:00 [facility] Influenza Virus 2008-03-19 Completed [facility] y of Vaccine 00:00:00 [facility] Influenza Virus 2008-03-19 Completed [facility] y of Vaccine 00:00:00 [facility] Influenza Virus 2008-03-19 Completed [facility] y of Vaccine 00:00:00 [facility] Influenza Virus 2008-03-19 Completed [facility] y of Vaccine 00:00:00 [facility] Influenza Virus 2008-03-19 Completed [facility] y of Vaccine 00:00:00 [facility] Influenza Virus 2008-03-19 Completed [facility] y of Vaccine 00:00:00 [facility] Influenza Virus 2008-03-19 Completed [facility] y of Vaccine 00:00:00 [facility] Influenza Virus 2008-03-19 Completed [facility] y of Vaccine 00:00:00 [facility] Influenza Virus 2008-03-19 Completed [facility]it y of Vaccine 00:00:00 [facility] Influenza Virus 2008-03-19 Completed [facility] y of Vaccine 00:00:00 [facility] Influenza Virus 2008-03-19 Completed [facility] y of Vaccine 00:00:00 [facility] Influenza Virus 2008-03-19 Completed [facility] y of Vaccine 00:00:00 [facility] Influenza Virus 2008-03-19 Completed [facility] y of Vaccine 00:00:00 [facility] Influenza Virus 2008-03-19 Completed [facility] y of Vaccine 00:00:00 [facility] Influenza Virus 2008-03-19 Completed [facility] y of Vaccine 00:00:00 [facility] Influenza Virus 2008-03-19 Completed [facility] y of Vaccine 00:00:00 [facility] Influenza Virus 2008-03-19 Completed [facility] y of Vaccine 00:00:00 [facility] Influenza Virus 2008-03-19 Completed [facility] y of Vaccine 00:00:00 [facility] Influenza Virus 2008-03-19 Completed [facility] y of Vaccine 00:00:00 [facility] Influenza Virus 2008-03-19 Completed [facility] y of Vaccine 00:00:00 [facility] Influenza Virus 2008-03-19 Completed [facility]it y of Vaccine 00:00:00 [facility] Influenza Virus 2008-03-19 Completed [facility] y of Vaccine 00:00:00 [facility] Influenza Virus 2008-03-19 Completed [facility] y of Vaccine 00:00:00 [facility] Influenza Virus 2008-03-19 Completed [facility] y of Vaccine 00:00:00 [facility] Influenza Virus 2008-03-19 Completed [facility] y of Vaccine 00:00:00 [facility] Influenza Virus 2008-03-19 Completed [facility]it y of Vaccine 00:00:00 [facility] Influenza Virus 2008-03-19 Completed [facility] y of Vaccine 00:00:00 [facility] Influenza Virus 2008-03-19 Completed [facility] y of Vaccine 00:00:00 [facility] Influenza Virus 2008-03-19 Completed [facility] y of Vaccine 00:00:00 [facility] Influenza Virus 2008-03-19 Completed [facility] y of Vaccine 00:00:00 [facility] Influenza Virus 2008-03-19 Completed [facility] y of Vaccine 00:00:00 [facility] Influenza Virus 2008-03-19 Completed [facility] y of Vaccine 00:00:00 [facility] Influenza Virus 2008-03-19 Completed [facility] y of Vaccine 00:00:00 [facility] Influenza Virus 2008-03-19 Completed [facility]it y of Vaccine 00:00:00 [facility] Vital Signs Vital Name Observation Time Observation Value Comments Source Systolic blood 2021-01-04 100 mm[Hg] [facility] of pressure 20:34:00 [facility] Diastolic blood 2021-01-04 70 mm[Hg] University o f pressure 20:34:00 [facility] Heart rate 2021-01-04 69 /min [facility] of 20:34:00 [facility] Body temperature 2021-01-04 36.61 [place] University [facility] 20:34:00 [facility] Respiratory rate 2021-01-04 18 /min University of 20:34:00 [facility] Oxygen saturation 2021-01-04 96 /min University of in Arterial blood 20:34:00 [facility] uriel by Pulse oximetry Branch Body height 2021-01-02 170.2 cm University of 02:19:00 [facility] Body weight 2021-01-02 75.978 kg University of 02:19:00 [facility] BMI 2021-01-02 26.23 kg/m2 University of 02:19:00 [facility] Systolic blood 2020-12-16 112 mm[Hg] University of pressure 20:56:00 [facility] Diastolic blood 2020-12-16 69 mm[Hg] University o f pressure 20:56:00 [facility] Heart rate 2020-12-16 69 /min University of 20:56:00 [facility] Body temperature 2020-12-16 37.11 [place] [facility] 20:56:00 [facility] Respiratory rate 2020-12-16 18 /min University of 20:56:00 [facility] Oxygen saturation 2020-12-16 95 /min [facility] of in Arterial blood 20:56:00 [facility] by Pulse oximetry Branch Body weight 2020-12-15 76.476 kg University of 15:06:00 [facility] BMI 2020-12-15 26.41 kg/m2 University of 15:06:00 [facility] Systolic blood 2020-10-12 141 mm[Hg] [facility] of pressure 19:30:00 [facility] Diastolic blood 2020-10-12 90 mm[Hg] University o f pressure 19:30:00 [facility] Heart rate 2020-10-12 99 /min University of 19:28:00 [facility] Body temperature 2020-10-12 36 [place] [facility] 19:28:00 [facility] Body weight 2020-10-12 78.472 kg University of 19:28:00 [facility] BMI 2020-10-12 27.10 kg/m2 University of 19:28:00 [facility] Oxygen saturation 2020-10-12 99 /min University of in Arterial blood 19:28:00 [facility] uriel by Pulse oximetry Branch Systolic blood 2020-10-06 136 mm[Hg] University of pressure 16:17:00 [facility] Diastolic blood 2020-10-06 84 mm[Hg] University o f pressure 16:17:00 [facility] Heart rate 2020-10-06 93 /min University of 16:17:00 [facility] Body temperature 2020-10-06 35.89 [place] [facility] 16:17:00 [facility] Body weight 2020-10-06 78.472 kg University of 16:17:00 [facility] BMI 2020-10-06 27.10 kg/m2 University of 16:17:00 [facility] Oxygen saturation 2020-10-06 99 /min University of in Arterial blood 16:17:00 [facility] by Pulse oximetry Branch Systolic blood 2020-10-06 136 mm[Hg] University of pressure 16:17:00 [facility] Diastolic blood 2020-10-06 84 mm[Hg] [facility] pressure 16:17:00 [facility] Heart rate 2020-10-06 93 /min University of 16:17:00 [facility] Body temperature 2020-10-06 35.89 Sandy University of 16:17:00 [facility] Body weight 2020-10-06 78.472 kg University of 16:17:00 [facility] BMI 2020-10-06 27.10 kg/m2 University of 16:17:00 [facility] Oxygen saturation 2020-10-06 99 /min University of in Arterial blood 16:17:00 [facility] by Pulse oximetry Branch Systolic blood 2020-09-29 136 mm[Hg] [facility] of pressure 01:00:00 [facility] Diastolic blood 2020-09-29 78 mm[Hg] [facility] pressure 01:00:00 [facility] Heart rate 2020-09-29 89 /min University of 01:00:00 [facility] Respiratory rate 2020-09-29 17 /min University of 01:00:00 [facility] Oxygen saturation 2020-09-29 98 /min University of in Arterial blood 01:00:00 [facility] uriel by Pulse oximetry Branch Body temperature 2020-09-28 36.44 Sandy University of 22:33:00 [facility] Body weight 2020-09-28 78.472 kg University of 22:33:00 [facility] BMI 2020-09-28 27.10 kg/m2 University of 22:33:00 [facility] Body temperature 2020-09-26 5 Sandy University of 17:00:00 [facility] Systolic blood 2020-09-26 103 mm[Hg] [facility] pressure 16:30:00 [facility] Diastolic blood 2020-09-26 69 mm[Hg] [facility] pressure 16:30:00 [facility] Heart rate 2020-09-26 80 /min University of 16:30:00 [facility] Respiratory rate 2020-09-26 16 /min University of 16:30:00 [facility] Oxygen saturation 2020-09-26 92 /min University in Arterial blood 16:30:00 [facility] by Pulse oximetry [place] Body weight 2020-09-26 80.882 kg University of 08:57:00 [facility] BMI 2020-09-26 27.93 kg/m2 University of 08:57:00 [facility] Body height 2020-09-24 170.2 cm pt is a University 02:35:00 bilateral [facility] amputie. prior Branch anita is as noted. pt does not know how tall he is at this time. Systolic blood 2020-09-07 119 mm[Hg] [facility] of pressure 16:03:00 [facility] Diastolic blood 2020-09-07 79 mm[Hg] [facility] pressure 16:03:00 [facility] Heart rate 2020-09-07 100 /min University of 16:03:00 [facility] Body temperature 2020-09-07 36.67 Sandy University of 16:03:00 [facility] Respiratory rate 2020-09-07 18 /min University of 16:03:00 [facility] Oxygen saturation 2020-09-07 98 /min University in Arterial blood 16:03:00 [facility] by Pulse oximetry Branch Body height 2020-09-02 170.2 cm University of 22:04:00 [facility] Body weight 2020-09-02 74.844 kg University of 22:04:00 [facility] BMI 2020-09-02 25.84 kg/m2 University of 22:04:00 [facility] Systolic blood 2020-08-26 108 mm[Hg] [facility] of pressure 16:00:00 [facility] Diastolic blood 2020-08-26 72 mm[Hg] [facility] pressure 16:00:00 [facility] Heart rate 2020-08-26 87 /min University of 16:00:00 [facility] Body temperature 2020-08-26 36.83 Sandy University of 16:00:00 [facility] Respiratory rate 2020-08-26 20 /min University of 16:00:00 [facility] Body height 2020-08-26 167.6 cm University of 16:00:00 [facility] Body weight 2020-08-26 74.844 kg University of 16:00:00 [facility] BMI 2020-08-26 26.63 kg/m2 University of 16:00:00 [facility] Oxygen saturation 2020-08-26 99 /min University of in Arterial blood 16:00:00 [facility] by Pulse oximetry Branch Systolic blood 2020-08-21 98 mm[Hg] University of pressure 13:57:00 [facility] Branch Diastolic blood 2020-08-21 66 mm[Hg] [facility] pressure 13:57:00 [facility] Heart rate 2020-08-21 69 /min University of 13:57:00 [facility] Body temperature 2020-08-21 36.17 Sandy University of 13:57:00 [facility] Branch Respiratory rate 2020-08-21 20 /min University of 13:57:00 [facility] Body height 2020-08-21 167.6 cm University of 13:57:00 [facility] Oxygen saturation 2020-08-21 98 /min University of in Arterial blood 13:57:00 [facility] uriel by Pulse oximetry Branch Systolic blood 2020-08-06 101 mm[Hg] [facility] of pressure 20:39:00 [facility] Diastolic blood 2020-08-06 61 mm[Hg] [facility] pressure 20:39:00 [facility] Heart rate 2020-08-06 78 /min University of 20:39:00 [facility] Body temperature 2020-08-06 36.44 Sandy University of 20:39:00 [facility] Respiratory rate 2020-08-06 18 /min University of 20:39:00 [facility] Branch Oxygen saturation 2020-08-06 93 /min University of in Arterial blood 20:39:00 [facility] Pulse oximetry [facility] Body height 2020-07-31 170.2 cm University of 05:00:00 [facility] Body weight 2020-07-31 95.255 kg University of 05:00:00 [facility] BMI 2020-07-31 32.89 kg/m2 University of 05:00:00 [facility] Systolic blood 2020-07-20 118 mm[Hg] [facility] of pressure 22:48:00 [facility] Diastolic blood 2020-07-20 74 mm[Hg] [facility] pressure 22:48:00 [facility] Heart rate 2020-07-20 81 /min University of 22:48:00 [facility] Body temperature 2020-07-20 35.17 Sandy University of 22:48:00 [facility] Respiratory rate 2020-07-20 18 /min University of 22:48:00 [facility] Oxygen saturation 2020-07-20 99 /min [place] of in Arterial blood 22:48:00 [facility] uriel by Pulse oximetry Branch Body height 2020-07-15 170.2 cm University of 04:24:00 [facility] Body weight 2020-07-15 90.719 kg University of 04:24:00 [facility] BMI 2020-07-15 31.32 kg/m2 University of 04:24:00 [facility] Systolic blood 2020-06-11 119 mm[Hg] [facility] of pressure 19:50:00 [facility] Diastolic blood 2020-06-11 74 mm[Hg] [facility] pressure 19:50:00 [facility] Heart rate 2020-06-11 94 /min University of 19:50:00 [facility] Body temperature 2020-06-11 36.89 Sandy University of 19:50:00 [facility] Body height 2020-06-11 170.2 cm University of 19:50:00 [facility] Body weight 2020-06-11 77.111 kg University of 19:50:00 [facility] BMI 2020-06-11 26.63 kg/m2 University of 19:50:00 [facility] Oxygen saturation 2020-06-11 100 /min [place] of in Arterial blood 19:50:00 [facility] uriel by Pulse oximetry Branch Systolic blood 2020-06-02 104 mm[Hg] [facility] of pressure 17:25:00 [facility] Diastolic blood 2020-06-02 66 mm[Hg] [facility] pressure 17:25:00 [facility] Heart rate 2020-06-02 103 /min University of 17:25:00 [facility] Body temperature 2020-06-02 36.5 Sandy University of 17:25:00 [facility] Respiratory rate 2020-06-02 17 /min University of 17:25:00 [facility] Oxygen saturation 2020-06-02 94 /min University of in Arterial blood 17:25:00 [facility] by Pulse oximetry Branch Body height 2020-05-29 170.2 cm University of 15:17:00 [facility] Body weight 2020-05-29 74.844 kg University of 15:17:00 [facility] BMI 2020-05-29 25.84 kg/m2 University of 15:17:00 [facility] Systolic blood 2020-04-23 122 mm[Hg] [facility] of pressure 20:03:00 [facility] Diastolic blood 2020-04-23 78 mm[Hg] [facility] pressure 20:03:00 [facility] Heart rate 2020-04-23 96 /min University of 20:03:00 [facility] Body temperature 2020-04-23 36.44 Sandy University of 20:03:00 [facility] Body height 2020-04-23 170.2 cm University of 20:03:00 [facility] Oxygen saturation 2020-04-23 98 /min University of in Arterial blood 20:03:00 [facility] by Pulse oximetry Branch Systolic blood 2020-04-09 87 mm[Hg] [facility] of pressure 20:13:00 [facility] Diastolic blood 2020-04-09 59 mm[Hg] [facility] pressure 20:13:00 [facility] Heart rate 2020-04-09 94 /min University of 20:13:00 [facility] Body height 2020-04-09 170.2 cm University of 20:13:00 [facility] Body weight 2020-04-09 74.39 kg University of 20:13:00 [facility] BMI 2020-04-09 25.69 kg/m2 University of 20:13:00 [facility] Oxygen saturation 2020-04-09 97 /min University of in Arterial blood 20:13:00 [facility] by Pulse oximetry Branch Systolic blood 2020-03-26 101 mm[Hg] [facility] of pressure 21:36:00 [facility] Diastolic blood 2020-03-26 67 mm[Hg] [facility] o [facility] pressure 21:36:00 [facility] Heart rate 2020-03-26 86 /min University of 21:36:00 [facility] Body temperature 2020-03-26 36.39 Sandy University of 21:36:00 [facility] Respiratory rate 2020-03-26 18 /min University of 21:36:00 [facility] Oxygen saturation 2020-03-26 97 /min University of in Arterial blood 21:36:00 [facility] by Pulse oximetry Branch Body height 2020-03-18 170.2 cm University of 00:50:00 [facility] Body weight 2020-03-18 79.379 kg University of 00:50:00 [facility] BMI 2020-03-18 27.41 kg/m2 University of 00:50:00 [facility] Respiratory rate 2020-02-06 18 /min University of 01:01:00 [facility] Oxygen saturation 2020-02-06 93 /min University of in Arterial blood 01:01:00 [facility] by Pulse oximetry Branch Systolic blood 2020-02-05 114 mm[Hg] [facility] of pressure 21:00:00 [facility] Diastolic blood 2020-02-05 73 mm[Hg] [facility] o [facility] pressure 21:00:00 [facility] Heart rate 2020-02-05 81 /min University of 21:00:00 [facility] Body temperature 2020-02-05 36.5 Sandy University of 21:00:00 [facility] Body weight 2020-02-05 81.965 kg University of 09:07:00 [facility] BMI 2020-02-05 28.30 kg/m2 University of 09:07:00 [facility] Systolic blood 2019-11-21 126 mm[Hg] [facility] of pressure 15:56:00 [facility] Diastolic blood 2019-11-21 78 mm[Hg] [facility] o [facility] pressure 15:56:00 [facility] Heart rate 2019-11-21 77 /min University of 15:56:00 [facility] Body temperature 2019-11-21 36.11 Sandy University of 15:56:00 [facility] Respiratory rate 2019-11-21 18 /min University of 15:56:00 [facility] Oxygen saturation 2019-11-21 98 /min University of in Arterial blood 15:56:00 [facility] by Pulse oximetry Branch Body weight 2019-11-21 78.971 kg University of 08:21:00 [facility] BMI 2019-11-21 27.27 kg/m2 University of 08:21:00 [facility] Body height 2019-11-16 170.2 cm University of 21:44:00 [facility] Systolic blood 2019-09-18 113 mm[Hg] University of pressure 05:15:00 [facility] Branch Diastolic blood 2019-09-18 80 mm[Hg] University o f pressure 05:15:00 [facility] Branch Heart rate 2019-09-18 91 /min University of 05:15:00 [facility] Branch Respiratory rate 2019-09-18 21 /min University of 05:15:00 [facility] Oxygen saturation 2019-09-18 100 /min University of in Arterial blood 05:15:00 [facility] Pulse oximetry [facility] Body temperature 2019-09-18 36.94 [place] University of 01:26:00 [facility] Body height 2019-09-18 170.2 cm University of 01:26:00 [facility] Body weight 2019-09-18 72.576 kg University of 01:26:00 [facility] BMI 2019-09-18 25.06 kg/m2 University of 01:26:00 [facility] Systolic blood 2019-08-15 150 mm[Hg] University of pressure 19:26:52 [facility] Diastolic blood 2019-08-15 78 mm[Hg] [facility] o f pressure 19:26:52 [facility] Heart rate 2019-08-15 88 /min University of 19:26:52 [facility] Respiratory rate 2019-08-15 18 /min University of 19:26:52 [facility] Oxygen saturation 2019-08-15 100 /min University of in Arterial blood 19:26:52 [facility] uriel by Pulse oximetry Branch Body temperature 2019-08-15 36.5 Sandy University of 16:56:00 [facility] Body weight 2019-08-15 72.576 kg University of 16:56:00 [facility] BMI 2019-08-15 25.06 kg/m2 University of 16:56:00 [facility] Systolic blood 2019-08-09 100 mm[Hg] [facility] of pressure 16:00:00 [facility] Branch Diastolic blood 2019-08-09 66 mm[Hg] University o f pressure 16:00:00 [facility] Branch Heart rate 2019-08-09 88 /min University of 16:00:00 [facility] Body temperature 2019-08-09 36.56 [place] University of 16:00:00 [facility] Oxygen saturation 2019-08-09 98 /min [facility] of in Arterial blood 16:00:00 [place] [facility] Pulse oximetry [facility] Respiratory rate 2019-08-09 18 /min University of 13:31:00 [facility] Body height 2019-08-06 170.2 cm University of :: [facility] Body weight 2019-08-06 75.978 kg University of ::00 [facility] BMI 2019-08-06 26.23 kg/m2 University of :25:00 [facility] Systolic blood 2019-07-19 98 mm[Hg] University of pressure :02:00 [facility] Diastolic blood 2019-07-19 55 mm[Hg] [facility] pressure 01:02:00 [facility] Heart rate 2019-07-19 75 /min University of 01:02:00 [facility] Body temperature 2019-07-19 36.39 Sandy University of :02:00 [facility] Respiratory rate 2019-07-19 18 /min University of :02:00 [facility] Oxygen saturation 2019-07-19 95 /min University of in Arterial blood 01:02:00 [facility] by Pulse oximetry Branch Body height 2019-07-18 170.2 cm University of 19:06:00 [facility] Body weight 2019-07-18 78.472 kg University of 19:06:00 [facility] BMI 2019-07-18 27.10 kg/m2 University of 19:06:00 [facility] Systolic blood 2019-06-26 114 mm[Hg] [facility] of pressure 22:23:00 [facility] Diastolic blood 2019-06-26 76 mm[Hg] [facility] o f pressure 22:23:00 [facility] Heart rate 2019-06-26 83 /min University of :23:00 [facility] Body temperature 2019-06-26 36.39 Sandy University of :23:00 [facility] Respiratory rate 2019-06-26 18 /min University of :23:00 [facility] Oxygen saturation 2019-06-26 99 /min University of in Arterial blood 22:23:00 [facility] by Pulse oximetry Branch Body weight 2019-06-26 78.064 kg University of :43:00 [facility] BMI 2019-06-26 26.95 kg/m2 University of 09:43:00 [facility] Body height 2019-06-24 170.2 cm University of 20:53:00 [facility] Systolic blood 2019-02-06 121 mm[Hg] [facility] of pressure 02:21:00 [facility] Branch Diastolic blood 2019-02-06 81 mm[Hg] [facility] o [facility] pressure 02:21:00 [facility] Branch Heart rate 2019-02-06 77 /min University of 02:21:00 [facility] Respiratory rate 2019-02-06 23 /min University of 02:21:00 [facility] Oxygen saturation 2019-02-06 98 /min University of in Arterial blood 02:21:00 [place] [facility] by Pulse oximetry [facility] Body temperature 2019-02-05 36.33 [place] University of 22:27:00 [facility] Body height 2019-02-05 170.2 cm University of 22:27:00 [facility] Body weight 2019-02-05 81.647 kg University of 22:27:00 [facility] BMI 2019-02-05 28.19 kg/m2 University of 22:27:00 [facility] Systolic blood 2019-01-29 96 mm[Hg] [facility] of pressure 16:40:00 [facility] Diastolic blood 2019-01-29 66 mm[Hg] [facility] pressure 16:40:00 [facility] Heart rate 2019-01-29 80 /min University of 16:40:00 [facility] Body temperature 2019-01-29 36.39 [place] University of 16:40:00 [facility] Respiratory rate 2019-01-29 18 /min University of 16:40:00 [facility] Oxygen saturation 2019-01-29 99 /min [facility] of in Arterial blood 16:40:00 [facility] by Pulse oximetry Branch Body height 2019-01-28 170.2 cm University of 16:45:00 [facility] Body weight 2019-01-28 82.101 kg University of 16:45:00 [facility] BMI 2019-01-28 28.35 kg/m2 University of 16:45:00 [facility] Systolic blood 2019-01-19 125 mm[Hg] [facility] of pressure 17:20:00 [facility] Branch Diastolic blood 2019-01-19 69 mm[Hg] [facility] o f pressure 17:20:00 [facility] Heart rate 2019-01-19 76 /min University of 17:20:00 [facility] Body temperature 2019-01-19 36.56 [place] University of 17:20:00 [facility] Respiratory rate 2019-01-19 16 /min University of 17:20:00 [facility] Oxygen saturation 2019-01-19 100 /min [facility] Arterial blood 17:20:00 [facility] by Pulse oximetry [place] Body weight 2019-01-19 83.416 kg [facility] 08:42:00 [facility] BMI 2019-01-19 28.80 kg/m2 [facility] 08:42:00 [facility] Body height 2019-01-19 170.2 cm [facility] 01:10:00 [facility] Procedures Procedure Date / Time Performing Clinician Source Performed POCT GLUCOSE (AUTOMATED) 2021-01-04 Timur Gerardo [facility] 21:37:00 [facility] POCT GLUCOSE (AUTOMATED) 2021-01-04 Timur Gerardo [facility] 18:04:00 [facility] NM MYOCARDIUM PERFUSION 2021-01-04 Ninfa Castillo [facility] STRESS AND REST 17:24:00 [facility] POCT GLUCOSE (AUTOMATED) 2021-01-04 Timur Gerardo [facility] 12:51:00 [facility] ACUTE CARE VENOUS BLOOD 2021-01-04 [facility] GAS 12:38:00 [facility] COMP. METABOLIC PANEL 2021-01-04 [facility] ([id number]) 10:28:00 [facility] CBC WITH DIFF 2021-01-04 Scott Granados [facility] 10:28:00 [facility] N-TERMINAL PRO-BNP 2021-01-04 [facility] 10:28:00 [facility] POCT GLUCOSE (AUTOMATED) 2021-01-04 Timur Gerardo [facility] 10:16:00 [facility] POCT GLUCOSE (AUTOMATED) 2021-01-04 Timur Gerardo [facility] 04:20:00 [facility] POCT GLUCOSE (AUTOMATED) 2021-01-04 Timur Gerardo [facility] 00:23:00 [facility] POCT GLUCOSE (AUTOMATED) 2021-01-03 Timur Gerardo [facility] 21:40:00 [facility] POCT GLUCOSE (AUTOMATED) 2021-01-03 Timur Gerardo [facility] 16:29:00 [facility]OM[facility] COMP. METABOLIC PANEL 2021-01-03 [facility] ([id number]) 08:21:00 [facility] N-TERMINAL PRO-BNP 2021-01-03 [facility] 08:21:00 [facility] POCT GLUCOSE (AUTOMATED) 2021-01-03 [facility] 02:55:00 [facility] POCT GLUCOSE (AUTOMATED) 2021-01-03 [facility] 00:41:00 [facility] POCT GLUCOSE (AUTOMATED) 2021-01-02 [facility] 21:47:00 [facility] POCT GLUCOSE (AUTOMATED) 2021-01-02 [facility] 16:42:00 [facility] TROPONIN I 2021-01-02 Benji [facility] 14:03:00 [facility] POCT GLUCOSE (AUTOMATED) 2021-01-02 [facility] 12:43:00 [facility] XR CHEST 1 VW 2021-01-02 [facility] 10:55:38 [facility] ACUTE CARE VENOUS BLOOD 2021-01-02 Benji [facility] GAS 08:48:00 [facility] PHOSPHORUS 2021-01-02 Benji [facility] 08:47:00 [facility] MAGNESIUM 2021-01-02 Benji [facility] 08:47:00 [facility] TROPONIN I 2021-01-02 Benji [facility] 08:47:00 [facility] COMP. METABOLIC PANEL 2021-01-02 [facility] ([id number]) 08:47:00 [facility] CBC WITH DIFF 2021-01-02 [facility] 08:47:00 [facility] N-TERMINAL PRO-BNP 2021-01-02 [facility] 08:47:00 [facility] POCT GLUCOSE (AUTOMATED) 2021-01-02 [facility] 02:01:00 [facility] VITAMIN B12, LEVEL 2021-01-02 Benji [facility] 01:43:00 [facility] TROPONIN I 2021-01-02 Benji [facility] 01:43:00 [facility] VITAMIN D, 25-OH 2021-01-02 Benji [facility] 01:43:00 [facility] [place] HB ECG ROUTINE & RHYTHM 2021-01-02 Benji [facility] STRIP 01:30:[address] CHEST PULMONARY 2021-01-01 Juan José [facility] ANGIOGRAM 20:55:00 [facility] ACUTE CARE ARTERIAL 2021-01-01 Juan José [facility] BLOOD GAS 20:34:00 [facility] [place] XR CHEST 1 VW 2021-01-01 Juan José [facility]as 20:10:13 [facility] COVID-19 (ID NOW RAPID 2021-01-01 Juan José [facility] TESTING) 19:36:00 [facility] LAB ONLY COVID 2021-01-01 Juan José [facility] INTERPRETATION 19:36:00 [facility] PHOSPHORUS 2021-01-01 Benji [facility] 19:34:00 [facility] URIC ACID 2021-01-01 Benji [facility] 19:34:00 [facility] MAGNESIUM 2021-01-01 Benji [facility] 19:34:00 [facility] TROPONIN I 2021-01-01 Juan José [facility] 19:34:00 [facility] THYROID STIMULATING 2021-01-01 Benji [facility] [place] HORMONE 19:34:00 [facility] COMP. METABOLIC PANEL 2021-01-01 Juan José [facility] ([id number]) 19:34:00 [facility] LIPID PANEL 2021-01-01 Benji [facility] ([id number])(TOTAL 19:34:00 [facility] CHOLESTEROL, TRIGLYCERIDES, HDL) CBC WITH DIFF 2021-01-01 Juan José [facility] 19:34:00 [facility] GLYCOSYLATED HEMOGLOBIN 2021-01-01 Benji [facility] ([id number]) 19:34:00 [facility] PROTHROMBIN TIME / INR 2021-01-01 Juan José [facility] 19:34:00 [facility] ACTIVATED PARTIAL 2021-01-01 Juan José [facility] THRMPLAS AMARILIS 19:34:00 [facility] N-TERMINAL PRO-BNP 2021-01-01 Juan José [facility] 19:34:00 [facility] POCT GLUCOSE (AUTOMATED) 2021-01-01 Juan José [facility] 19:28:00 [facility] EKG-12 LEAD 2021-01-01 Martha Rowe [facility], [place] [place]as 19:23:00 Medical Branch CONSENT/REFUSAL FOR 2021-01-01 Doctor Unassigned, [facility] DIAGNOSIS AND TREATMENT 19:12:03 Name [facility] POCT GLUCOSE (AUTOMATED) 2020-12-16 [facility] 20:56:00 [facility] POCT GLUCOSE (AUTOMATED) 2020-12-16 [facility] 16:49:00 [facility] POCT GLUCOSE (AUTOMATED) 2020-12-16 [facility] 12:31:00 [facility] BASIC METABOLIC PANEL 2020-12-16 Ronald [facility] (NA, K, CL, CO2, 09:15:00 [facility] GLUCOSE, BUN, CREATININE, CA) N-TERMINAL PRO-BNP 2020-12-16 Ninfa Castillo [facility] 09:15:00 [facility] POCT GLUCOSE (AUTOMATED) 2020-12-16 [facility] 00:43:00 [facility] POCT GLUCOSE (AUTOMATED) 2020-12-15 [facility] 21:40:00 [facility] GLYCOSYLATED HEMOGLOBIN 2020-12-15 [facility] (A1C) 17:07:00 [facility] POCT GLUCOSE (AUTOMATED) 2020-12-15 [facility] 16:51:00 [facility] TRANSTHORACIC ECHO (TTE) 2020-12-15 Janeth Goodson [facility] COMPLETE W/ CONTRAST 15:47:14 Medical [facility] POCT GLUCOSE (AUTOMATED) 2020-12-15 Ana Maria Cardenas [facility] 13:46:00 Medical Branch TROPONIN I 2020-12-15 Galvan, [facility] xas 10:07:00 Medical Branch LIPID PANEL 2020-12-15 Ninfa Castillo [facility] ([id number])(TOTAL 10:07:00 Medical Branch CHOLESTEROL, TRIGLYCERIDES, HDL) N-TERMINAL PRO-BNP 2020-12-15 Ninfa Castillo [facility] 10:07:00 Medical Branch MAGNESIUM 2020-12-15 Ana Maria Cardenas [facility], [place] 08:05:00 Medical Branch TROPONIN I 2020-12-15 Singer [facility] xas 08:05:00 Medical Branch TROPONIN I 2020-12-15 Antonia Cedeno [facility] 02:17:00 Medical Branch COVID-19 (ID NOW RAPID 2020-12-15 Antonia Cedeno [facility] TESTING) 00:58:00 Medical Branch LAB ONLY COVID 2020-12-15 Antonia Cedeno [facility] INTERPRETATION 00:58:00 Medical Branch XR CHEST 1 VW 2020-12-15 Antonia Cedeno [facility] 00:10:32 Medical Branch LIPASE 2020-12-14 Janeth Goodson [facility] 23:30:00 Medical Branch TROPONIN I 2020-12-14 Janeth Goodson [facility] 23:30:00 Medical Branch COMP. METABOLIC PANEL 2020-12-14 Janeth Goodson [facility] ([id number]) 23:30:00 Medical Branch CBC WITH DIFF 2020-12-14 Janeth Goodson [facility] 23:30:00 Medical Branch GLYCOSYLATED HEMOGLOBIN 2020-12-14 Ninfa Castillo [facility] (A1C) 23:30:00 Medical Branch PROTHROMBIN TIME / INR 2020-12-14 Janeth Goodson [facility] 23:30:00 Medical Branch ACTIVATED PARTIAL 2020-12-14 Janeth Goodson [facility] THRMPLAS [place] 23:30:00 Medical Branch HB ECG ROUTINE & RHYTHM 2020-12-14 Janeth Goodson [facility] STRIP 22:59:19 Medical Branch INSURANCE CORRESPONDENCE 2020-11-16 Doctor Unassigned, No U [facility] 05:01:00 Name [facility] [place] UPPER GI SMALL BOWEL 2020-10-28 Requisition, Paper [facility] SERIES 16:58:44 Medical Branch POCT URINALYSIS AUTO 2020-10-12 [facility] 19:31[facility]00 [facility] CONSENT/REFUSAL FOR 2020-10-06 Doctor Unassigned, No [facility] DIAGNOSIS AND TREATMENT 15:43:46 Name [facility] CT ABDOMEN PELVIS WO 2020-09-28 [facility] CONTRAST 23:49:27 Medical Branch LIPASE 2020-09-28 [facility] 23:32:00 Medical Branch COMP. METABOLIC PANEL 2020-09-28 [facility] ([id number][facility] 23:32:00 Medical Branch CBC WITH DIFF 2020-09-28 [facility] 23:32:00 Medical Branch POCT GLUCOSE (AUTOMATED) 2020-09-26 [facility] 21:40:00 [facility] XR CHEST 1 VW 2020-09-26 [facility] 16:[facility]13 Medical Branch POCT GLUCOSE (AUTOMATED) 2020-09-26 [facility] 16:32:00 Medical Branch POCT GLUCOSE (AUTOMATED) 2020-09-26 [facility] 12:38:00 Medical Branch POCT GLUCOSE (AUTOMATED) 2020-09-26 [facility] 08:59:00 [facility] COMP. METABOLIC PANEL 2020-09-26 Benji [facility] ([id number]) 08:18:00 Medical Branch CBC WITH DIFF 2020-09-26 [facility] 08:18:00 [facility] N-TERMINAL PRO-BNP 2020-09-26 Benji [facility] 08:18:00 [facility] POCT GLUCOSE (AUTOMATED) 2020-09-26 [facility] 08:15:00 Medical Branch POCT GLUCOSE (AUTOMATED) 2020-09-25 [facility] 21:54:00 Medical Branch POCT GLUCOSE (AUTOMATED) 2020-09-25 [facility] 16:52:00 Medical Branch POCT GLUCOSE (AUTOMATED) 2020-09-25 [facility] 12:49:00 Medical Branch MAGNESIUM 2020-09-25 Benji, [facility] x[place] 10:39:00 Medical Branch COMP. METABOLIC PANEL 2020-09-25 Benji [facility] ([id number]) 10:39:00 Medical Branch CBC WITH DIFF 2020-09-25 Benji [facility] [place] 10:39:00 [facility] N-TERMINAL PRO-BNP 2020-09-25 Benji [facility] 10:39:00 [facility] POCT GLUCOSE (AUTOMATED) 2020-09-24 [facility] 21:19:00 [facility] POCT GLUCOSE (AUTOMATED) 2020-09-24 [facility] 17:02:00 [facility] POCT GLUCOSE (AUTOMATED) 2020-09-24 [facility] 12:47:00 [facility] FECES CULTURE 2020-09-24 Benji [facility] x[place] 11:46:00 [facility] OCCULT (GUAIAC) BLOOD 2020-09-24 [facility] 11:46:00 [facility] FECAL LEUKOCYTES 2020-09-24 Benji [facility] exas 11:46:00 [facility] FECAL PATHOGENS BY PCR 2020-09-24 Benji [facility] 11:46:00 [facility] TROPONIN I 2020-09-24 Benji [facility] [place] 10:57:00 [facility] COMP. METABOLIC PANEL 2020-09-24 Benji [facility] ([id number]) 10:57:00 Medical Branch CBC WITH DIFF 2020-09-24 Benji [facility] [place] 10:57:00 Medical Branch N-TERMINAL PRO-BNP 2020-09-24 Benji [facility] 10:57:00 [facility] CLOSTRIDIUM DIFFICILE 2020-09-24 Benji [facility] TOXIN 07:37:00 Medical Branch VITAMIN B12, LEVEL 2020-09-24 Benji [facility] 03:16:00 Medical Branch TROPONIN I 2020-09-24 Benji [facility] [place] 03:16:00 [facility] IRON PANEL 2020-09-24 Benji [facility] [place] 03:16:00 [facility] SEDIMENTATION RATE 2020-09-24 Benji [facility] 03:16:00 [facility] GLYCOSYLATED HEMOGLOBIN 2020-09-24 Benji [facility] (A1C) 03:16:00 [facility] VITAMIN D, 25-OH 2020-09-24 Benji [facility] exas 03:16:00 [facility] PROCALCITONIN 2020-09-24 Benji [facility] [place] 03:16:00 [facility] POCT GLUCOSE (AUTOMATED) 2020-09-24 [facility] 01:11:00 Medical Branch CRITICAL CARE 2020-09-23 Juan José [facility] xa 23:17:[address] [facility] [address] ABDOMEN PELVIS W 2020-09-23 Juan José [facility] [place] [facility] CONTRAST 21:46:[address] THORAX W CONTRAST 2020-09-23 Juan José [facility] 21:46:43 [facility] URINALYSIS 2020-09-23 Juan José [facility] [place] 20:22:00 [facility] URINE CULTURE 2020-09-23 Juan José [facility] [place] 20:22:00 [facility] HB ECG ROUTINE & RHYTHM 2020-09-23 Juan José [facility] STRIP 19:38:23 Medical Branch HB ABO GROUPING 2020-09-23 Juan José [facility] [place] 19:26:00 Medical Branch PHOSPHORUS 2020-09-23 Benji [facility] xas 19:24:00 Medical Branch CREATINE KINASE 2020-09-23 Benji [facility] x[place] 19:24:00 Medical Branch URIC ACID 2020-09-23 Benji [facility] x[place] 19:24:00 Medical Branch LIPASE 2020-09-23 Juan José [facility] [place] 19:24:00 Medical Branch MAGNESIUM 2020-09-23 Benji [facility] 19:24:00 [facility] FERRITIN SERUM 2020-09-23 Benji [facility] 19:24:00 [facility] TROPONIN I 2020-09-23 Juan José [facility] 19:24:00 [facility] THYROID STIMULATING 2020-09-23 Benji [facility] [place] HORMONE 19:24:00 [facility] HEPATIC FUNCTION PANEL 2020-09-23 [facility] ([id number][facility] (ALB,T.PRO,BILI 19:24:00 Medical Branch T,BU/BC,ALT,AST,ALK PHOS) BASIC METABOLIC PANEL 2020-09-23 [facility] ([facility], K, CL, CO2, 19:24:00 Medical Branch GLUCOSE, BUN, CREATININE, CA) LIPID PANEL 2020-09-23 [facility] ([id number])(TOTAL 19:24:00 Medical Branch CHOLESTEROL, TRIGLYCERIDES, HDL) CBC WITH DIFF 2020-09-23 Juan José [facility] 19:24:00 [facility] PROTHROMBIN TIME / INR 2020-09-23 [facility] 19:24:00 [facility] ACTIVATED PARTIAL 2020-09-23 [facility] 19:24:00 [facility] N-TERMINAL PRO-BNP 2020-09-23 [facility] 19:24:00 [facility] COVID-19 (ID NOW RAPID 2020-09-23 [facility] 19:24:00 [facility] XR CHEST 1 VW 2020-09-23 [facility] 19:09:04 [facility] EMERGENCY DEPARTMENT 2020-09-23 Doctor Unassigned, No [facility] DOCUMENTS 05:01:00 Name [facility] [place] POCT GLUCOSE (AUTOMATED) 2020-09-07 Jose Hill [facility] 17:29:00 Medical Branch POCT GLUCOSE (AUTOMATED) 2020-09-07 Jose Hill [facility] 13:33:00 Medical Branch POCT GLUCOSE (AUTOMATED) 2020-09-07 Hill, [facility] 01:50:00 [facility] POCT GLUCOSE (AUTOMATED) 2020-09-06 Hill, [facility] 14:02:00 [facility] POCT GLUCOSE (AUTOMATED) 2020-09-06 [facility] 02:45:00 [facility] POCT GLUCOSE (AUTOMATED) 2020-09-05 [facility] 14:21:00 [facility] CBC WITH DIFF 2020-09-05 [facility] 10:11:00 [facility] POCT GLUCOSE (AUTOMATED) 2020-09-05 [facility] 01:12:00 [facility] POCT GLUCOSE (AUTOMATED) 2020-09-04 [facility] 21:19:00 [facility] POCT GLUCOSE (AUTOMATED) 2020-09-04 [facility] 15:40:00 [facility] LIPASE 2020-09-04 [facility] 15:19:00 [facility] POCT GLUCOSE (AUTOMATED) 2020-09-04 [facility] 14:15:00 [facility] POCT GLUCOSE (AUTOMATED) 2020-09-03 [facility] 23:41[facility]00 [facility] POCT GLUCOSE (AUTOMATED) 2020-09-03 [facility] 15:22:00 [facility] URINE CULTURE 2020-09-03 [facility] 15:03:00 [facility] POCT GLUCOSE (AUTOMATED) 2020-09-03 [facility] 08:15:00 [facility] POCT GLUCOSE (AUTOMATED) 2020-09-03 Brooks [facility] 07:39:00 [facility] BLOOD CULTURE SCREEN 2020-09-03 Brooks [facility] 01:31:00 [facility] XR CHEST 1 VW 2020-09-02 [facility] 23:33:33 [facility] COVID-19 (ID NOW RAPID 2020-09-02 Brooks [facility] TESTING) 23:15:00 [facility] LAB ONLY COVID 2020-09-02 Brooks [facility] INTERPRETATION 23:15:00 [facility] BLOOD CULTURE SCREEN 2020-09-02 [facility] 23:12:00 [facility] LIPASE 2020-09-02 [facility] 23:12:00 [facility] HEPATIC FUNCTION PANEL 2020-09-02 [facility] ([id number]) (ALB,T.PRO,BILI 23:12:00 [facility] T,BU/BC,ALT,AST,ALK PHOS) BASIC METABOLIC PANEL 2020-09-02 [facility] (NA, K, CL, CO2, 23:12:00 [facility] GLUCOSE, BUN, CREATININE, CA) N-TERMINAL PRO-BNP 2020-09-02 [facility] 23:12:00 [facility] LACTIC ACID WHOLE BLOOD 2020-09-02 [facility] 23:12:00 [facility] TROPONIN I 2020-09-02 Brooks [facility] [place] 22:20:00 [facility] COMP. METABOLIC PANEL 2020-09-02 Brooks [facility] ([id number]) 22:20:00 [facility] CBC WITH DIFF 2020-09-02 Brooks [facility] [place] 22:20:00 [facility] PROTHROMBIN TIME / INR 2020-09-02 Brooks [facility] 22:20:00 [facility] [id number] 2020-08-11 [facility] 00:[facility]:00 [facility] [id number] 2020-08-11 [facility] 00:00:00 [facility] [id number] 2020-08-11 [facility] 00:00:00 [facility] [id number] 2020-08-11 [facility] 00:00:00 [facility] ACTIVATED PARTIAL 2020-08-06 Jose Antonio Messer [facility] THRMPLAS [place] 18:59:00 [facility] POCT GLUCOSE (AUTOMATED) 2020-08-06 Johnie Skinner [facility] 14:26:00 Medical Branch BASIC METABOLIC PANEL 2020-08-06 Heather Newberry [facility] (NA, K, CL, CO2, 10:17:00 [facility] GLUCOSE, BUN, CREATININE, CA) CBC WITH DIFF 2020-08-06 Cody Braxton [facility] 10:17:00 Medical Branch ACTIVATED PARTIAL 2020-08-06 Ross Irais Jose Antonio [facility] THRLAS [place] 02:56:00 Medical Branch POCT GLUCOSE (AUTOMATED) 2020-08-06 Johnie Skinner [facility] 02:19:00 Medical Branch POCT GLUCOSE (AUTOMATED) 2020-08-05 Johnie Skinner [facility] 23:24:00 Medical Branch ACTIVATED PARTIAL 2020-08-05 Cody Braxton [facility] 18:23:00 Medical Branch MAGNESIUM 2020-08-05 [facility] 05:01:00 [facility] BASIC METABOLIC PANEL 2020-08-05 [facility] (NA, K, CL, CO2, 05:01:00 [facility] GLUCOSE, BUN, CREATININE, CA) CBC WITH DIFF 2020-08-05 Cody Braxton [facility] 05:01:00 Medical Branch ACTIVATED PARTIAL 2020-08-05 [facility] 05:00:00 Medical Branch POCT GLUCOSE (AUTOMATED) 2020-08-05 Johnie Skinner [facility] 01:56:00 Medical Branch ACTIVATED PARTIAL 2020-08-04 Ross Lara, [facility] THRLAS [place] 16:50:00 Medical Branch POCT GLUCOSE (AUTOMATED) 2020-08-04 Johnie Skinner [facility] 13:57:00 Medical Branch BASIC METABOLIC PANEL 2020-08-04 Kathryn [facility] (NA, K, CL, CO2, 09:21:00 Medical Branch GLUCOSE, BUN, CREATININE, CA) CBC WITH DIFF 2020-08-04 Cody Braxton [facility] 09:21:00 Medical Branch POCT GLUCOSE (AUTOMATED) 2020-08-04 Johnie Skinner [facility] 03:54:00 Medical Branch ACTIVATED PARTIAL 2020-08-04 [facility] [place] 01:28:00 Medical Branch POCT GLUCOSE (AUTOMATED) 2020-08-03 Johnie Skinner [facility] 22:16:00 Medical Branch POCT GLUCOSE (AUTOMATED) 2020-08-03 Johnie Skinner [facility] 17:57:00 Medical Branch HB ABO GROUPING 2020-08-[address] [facility] [place] 13:26:00 Medical Branch BELOW THE KNEE 2020-08-03 Tato Shearer [facility] AMPUTATION 12:42:00 [facility] BASIC METABOLIC PANEL 2020-08-03 [facility] (NA, K, CL, CO2, 07:30:00 [facility] GLUCOSE, BUN, CREATININE, CA) CBC WITH DIFF 2020-08-03 Cody Braxton [facility] 07:30:00 [facility] ACTIVATED PARTIAL 2020-08-03 Cody Braxton [facility] THRLAS [place] 07:29:00 [facility] POCT GLUCOSE (AUTOMATED) 2020-08-03 Drew Lazaro [facility] 02:22:00 Medical Branch POCT GLUCOSE (AUTOMATED) 2020-08-02 [facility] 23:05:00 [facility] COVID-19 (ID NOW RAPID 2020-08-02 [facility] TESTING) 20:40:00 [facility] POCT GLUCOSE (AUTOMATED) 2020-08-02 [facility] 18:31:00 Medical Branch ACTIVATED PARTIAL 2020-08-02 Cody Braxton [facility] THRMPLAS [place] 18:26:00 [facility] [place] POCT GLUCOSE (AUTOMATED) 2020-08-02 [facility] 13:48:00 Medical Branch ACTIVATED PARTIAL 2020-08-02 Ross Lara[facility] [place] 10:54:00 [facility] BASIC METABOLIC PANEL 2020-08-02 [facility] (NA, K, CL, CO2, 10:53:00 [facility] GLUCOSE, BUN, CREATININE, CA) CBC WITH DIFF 2020-08-02 Cody Braxton [facility] 10:53:00 Medical Branch ACTIVATED PARTIAL 2020-08-02 Ross Irais [facility] 05:57:00 Medical Branch POCT GLUCOSE (AUTOMATED) 2020-08-02 [facility] 01:44:00 Medical Branch ACTIVATED PARTIAL 2020-08-01 Cody Braxton [facility] 20:33:00 Medical Branch POCT GLUCOSE (AUTOMATED) 2020-08-01 Tejas [facility] 14:52:00 Medical Branch BASIC METABOLIC PANEL 2020-08-01 Heather Newberry [facility] (NA, K, CL, CO2, 10:25:00 [facility] GLUCOSE, BUN, CREATININE, CA) CBC WITH DIFF 2020-08-01 Cody Braxton [facility] 10:25:00 Medical Branch ACTIVATED PARTIAL 2020-08-01 Cody Braxton [facility] 10:25:00 Medical Branch POCT GLUCOSE (AUTOMATED) 2020-08-01 [facility] 02:28:00 Medical Branch POCT GLUCOSE (AUTOMATED) 2020-07-31 Tejas [facility] 23:14:00 Medical Branch ACTIVATED PARTIAL 2020-07-31 Cody Braxton [facility] AM[place]ILIS 23:06:00 Medical Branch POCT GLUCOSE (AUTOMATED) 2020-07-31 [facility] 19:02:00 Medical Branch POCT GLUCOSE (AUTOMATED) 2020-07-31 Tejas [facility] 14:11:00 Medical Branch CBC WITH DIFF 2020-07-31 Cody Braxton [facility] 12:27:00 Medical Branch PROTHROMBIN TIME / INR 2020-07-31 Cody Braxton [facility] 12:27:00 Medical Branch ACTIVATED PARTIAL 2020-07-31 [facility] THRM[facility] [place] 12:27:00 Medical Branch COMP. METABOLIC PANEL 2020-07-31 Cody Braxton [facility] ([id number]) 12:26:00 Medical Branch POCT GLUCOSE (AUTOMATED) 2020-07-31 Minnie Cardona [facility] 02:10:00 Medical Branch POCT GLUCOSE (AUTOMATED) 2020-07-30 [facility] 22:37:00 Medical [facility] POCT GLUCOSE (AUTOMATED) 2020-07-30 [facility] 14:06:00 Medical Branch BASIC METABOLIC PANEL 2020-07-30 Brendan [facility] (NA, K, CL, CO2, 11:54:00 Medical Branch GLUCOSE, BUN, CREATININE, CA) CBC WITH DIFF 2020-07-30 [facility] 11:54:00 Medical Branch N-TERMINAL PRO-BNP 2020-07-30 Antonia Hough [facility] 11:54:00 Medical Branch POCT GLUCOSE (AUTOMATED) 2020-07-30 [facility] 01:59:00 Medical Branch POCT GLUCOSE (AUTOMATED) 2020-07-29 [facility] 22:40:00 Medical Branch POCT GLUCOSE (AUTOMATED) 2020-07-29 [facility] 16:58:00 Medical [facility] POCT GLUCOSE (AUTOMATED) 2020-07-29 [facility] 13:34:00 Medical Branch BASIC METABOLIC PANEL 2020-07-29 Brendan [facility] (NA, K, CL, CO2, 09:54:00 Medical Branch GLUCOSE, BUN, CREATININE, CA) CBC WITH DIFF 2020-07-29 [facility] 09:54:00 [facility] POCT GLUCOSE (AUTOMATED) 2020-07-29 [facility] 02:25:00 Medical [facility] POCT GLUCOSE (AUTOMATED) 2020-07-28 [facility] 22:42:00 Medical [facility] POCT GLUCOSE (AUTOMATED) 2020-07-28 Brendan [facility] 17:53:00 [facility] EVIE MULTI LEVEL - BY 2020-07-28 [facility] VASCULAR LAB 15:30:00 [facility] DUPLEX ARTERIAL LEG 2020-07-28 [facility] RIGHT - BY VASCULAR LAB 14:55:00 [facility] POCT GLUCOSE (AUTOMATED) 2020-07-28 Brendan [facility] 13:18:00 [facility] TROPONIN I 2020-07-28 [facility] xa 09:36:00 [facility] BASIC METABOLIC PANEL 2020-07-28 [facility] (NA, K, CL, CO2, 09:36:00 Medical Branch GLUCOSE, BUN, CREATININE, CA) CBC WITH DIFF 2020-07-28 Brendan [facility] xa 09:36:00 [facility] TROPONIN I 2020-07-28 [facility] xa 04:35:00 [facility] N-TERMINAL PRO-BNP 2020-07-28 [facility] 04:35:00 [facility] POCT GLUCOSE (AUTOMATED) 2020-07-28 [facility] 02:15:00 [facility] PROTHROMBIN TIME / INR 2020-07-27 Brendan [facility] 23:36:00 [facility] ACTIVATED PARTIAL 2020-07-27 Brendan [facility] THRMPLAS [place] 23:36:00 [facility] POCT GLUCOSE (AUTOMATED) 2020-07-27 Brendan [facility] 22:54:00 [facility] POCT GLUCOSE (AUTOMATED) 2020-07-27 Brendan [facility] 20:52:00 [facility] XR CHEST 1 VW 2020-07-27 [facility] xa 18:46:24 [facility] POCT GLUCOSE (AUTOMATED) 2020-07-27 [facility] 18:31:00 Medical Branch LIPASE 2020-07-27 [facility] [place] 18:24:00 [facility] MAGNESIUM 2020-07-27 [facility] [place] 18:24:00 Medical Branch TROPONIN I 2020-07-27 Galvan, [facility] xas 18:24:00 Medical Branch COMP. METABOLIC PANEL 2020-07-27 [facility] ([id number][facility] 18:24:00 Medical Branch CBC WITH DIFF 2020-07-27 Singer [facility] 18:24:00 Medical Branch PROTHROMBIN TIME / INR 2020-07-27 [facility] 18:24:00 Medical Branch ACTIVATED PARTIAL 2020-07-27 Minnie Cardona [facility] THRMPLAS [place] 18:24:00 [facility] N-TERMINAL PRO-BNP 2020-07-27 [facility] 18:24:00 [facility] COVID-19 (ID NOW RAPID 2020-07-27 [facility] TESTING) 18:24:00 Medical Branch LAB ONLY COVID 2020-07-27 [facility] INTERPRETATION 18:24:00 Medical Branch HB ECG ROUTINE & RHYTHM 2020-07-27 [facility] STRIP 18:15:35 [facility] EMERGENCY DEPARTMENT 2020-07-27 Doctor Unassigned, No [facility] DOCUMENTS 06:01:00 Name [facility] HOSPITAL ADMISSION 2020-07-27 Doctor Unassigned, No [facility] 06:01:00 Name [facility] POCT GLUCOSE (AUTOMATED) 2020-07-[facility] POCT GLUCOSE (AUTOMATED) 2020-07-20 [facility] 19:31:00 Medical Branch IRON PANEL 2020-07-20 [facility] [place] 19:19:00 Medical Branch FIBRINOGEN 2020-07-20 [facility] xas 19:19:00 Medical Branch CBC WITHOUT DIFF 2020-07-20 [facility] exas 19:18:00 Medical Branch HB ABO GROUPING 2020-07-20 [facility] xas 17:09:00 Medical Branch FERRITIN SERUM 2020-07-20 [facility] xas 10:05:00 Medical Branch BASIC METABOLIC PANEL 2020-07-20 Brendan, Dawit Francois [facility] (NA, K, CL, CO2, 10:05:00 Medical Branch GLUCOSE, BUN, CREATININE, CA) CBC WITH DIFF 2020-07-20 Dawit Cardona Francois [facility] 10:05:00 Medical Branch POCT GLUCOSE (AUTOMATED) 2020-07-19 [facility] 23:58:00 Medical Branch CBC WITHOUT DIFF 2020-07-19 [facility] 20:46:00 Medical Branch POCT GLUCOSE (AUTOMATED) 2020-07-19 [facility] 20:11:00 Medical Branch POCT GLUCOSE (AUTOMATED) 2020-07-19 [facility] 15:54:00 Medical Branch MAGNESIUM 2020-07-19 Brendan [facility] 09:32:00 Medical Branch BASIC METABOLIC PANEL 2020-07-19 [facility] (NA, K, CL, CO2, 09:32:00 Medical Branch GLUCOSE, BUN, CREATININE, CA) CT FOOT RIGHT W CONTRAST 2020-07-18 [facility] 21:01:00 Medical Branch POCT GLUCOSE (AUTOMATED) 2020-07-18 [facility] 17:36:00 Medical Branch CBC WITH DIFF 2020-07-18 [facility] xas 17:33:00 Medical Branch POCT GLUCOSE (AUTOMATED) 2020-07-18 [facility] 15:50:00 Medical Branch POCT GLUCOSE (AUTOMATED) 2020-07-18 [facility] 00:16:00 Medical Branch FL TIME OR 2020-07-17 [facility] [place] (NON-REPORTABLE) 21:52:00 Medical Branch ARTERIOGRAM 2020-07-17 [facility] 16:32:00 Medical Branch POCT GLUCOSE (AUTOMATED) 2020-07-17 [facility] 16:25:00 Medical Branch BASIC METABOLIC PANEL 2020-07-17 [facility] (NA, K, CL, CO2, 10:32:00 Medical Branch GLUCOSE, BUN, CREATININE, CA) CBC WITH DIFF 2020-07-17 [facility] xa 10:32:00 Medical Branch POCT GLUCOSE (AUTOMATED) 2020-07-17 [facility] 00:45:00 Medical Branch POCT GLUCOSE (AUTOMATED) 2020-07-17 [facility] 00:32:00 Medical Branch COVID-19 (ID NOW RAPID 2020-07-16 Tony [facility] TESTING) 21:28:00 Medical Branch LAB ONLY COVID 2020-07-[address] [facility] INTERPRETATION 21:28:00 Medical Branch HB ABO GROUPING 2020-07-[address] [facility] 21:22:00 Medical Branch POCT GLUCOSE (AUTOMATED) 2020-07-16 [facility] 21:13:00 Medical Branch POCT GLUCOSE (AUTOMATED) 2020-07-16 [facility] 15:38:00 Medical Branch BASIC METABOLIC PANEL 2020-07-16 Isiah [facility] (NA, K, CL, CO2, 10:48:00 Medical Branch GLUCOSE, BUN, CREATININE, CA) CBC WITH DIFF 2020-07-16 [facility] [place] [facility] 10:48:00 Medical Branch POCT GLUCOSE (AUTOMATED) 2020-07-15 [facility] 23:20:00 Medical Branch POCT GLUCOSE (AUTOMATED) 2020-07-15 [facility] 18:56:00 Medical Branch MAGNESIUM 2020-07-15 [facility] 10:32:00 Medical Branch C-REACTIVE PROTEIN 2020-07-15 [facility] 10:32:00 Medical Branch BASIC METABOLIC PANEL 2020-07-15 [facility] (NA, K, CL, CO2, 10:32:00 Medical Branch GLUCOSE, BUN, CREATININE, CA) SEDIMENTATION RATE 2020-07-15 [facility] 10:32:00 Medical Branch POCT GLUCOSE (AUTOMATED) 2020-07-14 Janeth Goodson [facility] 22:45:00 Medical Branch VANCOMYCIN TROUGH 2020-07-14 Brendan [facility] 21:34:00 Medical Branch POCT GLUCOSE (AUTOMATED) 2020-07-14 [facility] 18:01:00 Medical Branch POCT GLUCOSE (AUTOMATED) 2020-07-14 [facility] 13:40:00 Medical Branch BASIC METABOLIC PANEL 2020-07-14 [facility] (NA, K, CL, CO2, 10:42:00 Medical Branch GLUCOSE, BUN, CREATININE, CA) CBC WITH DIFF 2020-07-14 [facility] xas 10:42:00 Medical Branch PROTHROMBIN TIME / INR 2020-07-14 Antonia Hough [facility] 10:42:00 Medical Branch POCT GLUCOSE (AUTOMATED) 2020-07-13 [facility] 22:31:00 Medical Branch EVIE MULTI LEVEL BY 2020-07-13 [facility] 20:32:13 Medical Branch POCT GLUCOSE (AUTOMATED) 2020-07-13 [facility] 17:36:00 Medical Branch UNILATERAL DUPLEX SCAN 2020-07-13 Chad Mancera [facility] OF ARTERY BY VASCULAR 16:17:21 Medical anch LAB POCT GLUCOSE (AUTOMATED) 2020-07-13 [facility] 13:53:00 Medical Branch BASIC METABOLIC PANEL 2020-07-13 [facility] (NA, K, CL, CO2, 09:35:00 Medical Branch GLUCOSE, BUN, CREATININE, CA) CBC WITH DIFF 2020-07-13 [facility] xas 09:35:00 Medical Branch POCT GLUCOSE (AUTOMATED) 2020-07-13 [facility] 01:42:00 Medical Branch POCT GLUCOSE (AUTOMATED) 2020-07-12 [facility] 21:52:00 Medical Branch VANCOMYCIN TROUGH 2020-07-12 [facility] 20:20:00 Medical Branch POCT GLUCOSE (AUTOMATED) 2020-07-12 [facility] 17:18:00 Medical Branch POCT GLUCOSE (AUTOMATED) 2020-07-12 Janeth Goodson [facility] 13:31:00 Medical Branch BASIC METABOLIC PANEL 2020-07-12 [facility] (NA, K, CL, CO2, 09:48:00 Medical Branch GLUCOSE, BUN, CREATININE, CA) CBC WITH DIFF 2020-07-12 [facility] [place]as 09:48:00 Medical Branch GLYCOSYLATED HEMOGLOBIN 2020-07-12 Antonia Hough [facility] (A1C) 09:48:00 Medical Branch POCT GLUCOSE (AUTOMATED) 2020-07-12 Janeth Goodson [facility] 02:12:[address] HEAD WO CONTRAST 2020-07-11 [facility] 23:[facility]10 Medical Branch POCT GLUCOSE (AUTOMATED) 2020-07-11 Janeth Goodson [facility] 22:16:00 Medical Branch POCT GLUCOSE (AUTOMATED) 2020-07-11 Janeth Goodson [facility] 17:29:00 Medical Branch POCT GLUCOSE (AUTOMATED) 2020-07-11 Janeth Goodson [facility] 16:39:00 Medical Branch POCT GLUCOSE (AUTOMATED) 2020-07-11 Janeth Goodson [facility] 13:36:00 Medical Branch BLOOD CULTURE SCREEN 2020-07-11 [facility] 12:35:00 Medical Branch BLOOD CULTURE SCREEN 2020-07-11 [facility] 12:34:00 [facility] XR FOOT <3 VW RIGHT 2020-07-11 Janeth Goodson [facility] 02:03:59 Medical Branch HEPATIC FUNCTION PANEL 2020-07-11 Janeth Goodson [facility] ([id number]) (ALB,T.PRO,BILI 01:54:00 Medical Branch T,BU/BC,ALT,AST,ALK PHOS) BASIC METABOLIC PANEL 2020-07-11 Janeth Goodson [facility] (NA, K, CL, CO2, 01:54:00 Medical Branch GLUCOSE, BUN, CREATININE, CA) SEDIMENTATION RATE 2020-07-11 Janeth Goodson [facility] 01:54:00 Medical Branch CBC WITH DIFF 2020-07-11 Janeth Goodson [facility] 01:54:00 Medical Branch PROTHROMBIN TIME / INR 2020-07-11 Janeth Goodson [facility] 01:54:00 Medical Branch COVID-19 (ID NOW RAPID 2020-07-11 Janeth Goodson [facility] TESTING) 01:54:00 Medical Branch LAB ONLY COVID 2020-07-11 Janeth Goodson [facility] INTERPRETATION 01:54:00 Medical Branch EMERGENCY DEPARTMENT 2020-07-10 Doctor Unassigned, No [facility] DOCUMENTS 06:01:00 Name [facility] HOSPITAL ADMISSION 2020-07-10 Doctor Unassigned, No [facility] 06:01:00 Name [facility] POCT GLUCOSE (AUTOMATED) 2020-06-02 Timur Gerardo [facility] 17:46:00 Medical Branch POCT GLUCOSE (AUTOMATED) 2020-06-02 Timur Gerardo [facility] 13:39:00 [facility] COMP. METABOLIC PANEL 2020-06-02 Humaira Timur [facility] ([id number]) 10:36:00 Medical Branch CBC WITH DIFF 2020-06-02 [facility] 10:36:00 Medical Branch PROTHROMBIN TIME / INR 2020-06-02 Timur Gerardo [facility] 10:36:00 Medical Branch POCT GLUCOSE (AUTOMATED) 2020-06-02 Timur Gerardo [facility] 10:34:00 Medical Branch POCT GLUCOSE (AUTOMATED) 2020-06-02 Timur Gerardo [facility] 03:18:00 Medical Branch POCT GLUCOSE (AUTOMATED) 2020-06-02 Timur Gerardo [facility] 02:14:00 Medical Branch POCT GLUCOSE (AUTOMATED) 2020-06-01 Timur Gerardo [facility] 23:10:00 Medical Branch POCT GLUCOSE (AUTOMATED) 2020-06-01 Timur Gerardo [facility] 17:35:00 [facility] POCT GLUCOSE (AUTOMATED) 2020-06-01 Timur Gerardo [facility] 13:43:00 Medical Branch POCT GLUCOSE (AUTOMATED) 2020-06-01 Humaira [facility] 02:28:00 Medical Branch POCT GLUCOSE (AUTOMATED) 2020-05-31 [facility] 23:08:00 Medical Branch POCT GLUCOSE (AUTOMATED) 2020-05-31 Edgardo [facility] 17:52:00 Medical Branch POCT GLUCOSE (AUTOMATED) 2020-05-31 Edgardo [facility] 13:34:00 Medical Branch BASIC METABOLIC PANEL 2020-05-31 [facility] (NA, K, CL, CO2, 10:36:00 Medical Branch GLUCOSE, BUN, CREATININE, CA) CBC WITH DIFF 2020-05-31 [facility] 10:36:00 Medical Branch PROTHROMBIN TIME / INR 2020-05-31 [facility] 10:36:00 Medical Branch POCT GLUCOSE (AUTOMATED) 2020-05-31 [facility] 01:51:00 Medical Branch POCT GLUCOSE (AUTOMATED) 2020-05-30 [facility] 22:45:00 Medical Branch POCT GLUCOSE (AUTOMATED) 2020-05-30 [facility] 18:01:00 Medical Branch POCT GLUCOSE (AUTOMATED) 2020-05-30 [facility] 14:28:00 [facility] [place] BASIC METABOLIC PANEL 2020-05-30 [facility] ([facility], K, CL, CO2, 09:29:00 Medical Branch GLUCOSE, BUN, CREATININE, CA) CBC WITH DIFF 2020-05-30 [facility] 09:29:00 [facility] POCT GLUCOSE (AUTOMATED) 2020-05-30 [facility] 01:54:00 Medical Branch PROTHROMBIN TIME / INR 2020-05-30 Antonia Hough [facility] 01:52:00 Medical Branch LACTIC ACID WHOLE BLOOD 2020-05-30 Rosa M Galvan [facility] 01:51:00 Medical Branch POCT GLUCOSE (AUTOMATED) 2020-05-29 EdgardojuiceTimur [facility] 22:47:00 Medical Branch COVID-19 (ID NOW RAPID 2020-05-29 [facility] TESTING) 19:47:00 Medical Branch LAB ONLY COVID 2020-05-29 [facility] xas INTERPRETATION 19:47:00 Medical Branch XR FEMUR 2 VW LEFT 2020-05-29 [facility] 16:28:10 Medical Branch XR FOOT <3 VW RIGHT 2020-05-29 [facility] [place] 16:28:10 Medical Branch BLOOD CULTURE SCREEN 2020-05-29 [facility] 15:52:00 Medical Branch COMP. METABOLIC PANEL 2020-05-29 [facility] ([id number]) 15:52:00 Medical Branch CBC WITH DIFF 2020-05-29 [facility] 15:52:00 Medical Branch LACTIC ACID WHOLE BLOOD 2020-05-29 [facility] 15:50:00 Medical Branch EKG-12 LEAD 2020-05-29 [facility] xas 15:34:13 Medical Branch EMERGENCY DEPARTMENT 2020-05-29 Doctor Unassigned, No [facility] DOCUMENTS 06:01:00 Name Medical Branch PHYSICIAN ORDERS 2020-04-23 Doctor Unassigned, No [facility] 06:01:00 Name [facility] POCT GLUCOSE (AUTOMATED) 2020-03-26 [facility] 22:37:00 Medical Branch POCT GLUCOSE (AUTOMATED) 2020-03-26 Tato Shearer Un iversity [facility] 18:58:00 Medical Branch POCT GLUCOSE (AUTOMATED) 2020-03-26 [facility] 14:07:00 Medical Branch POCT GLUCOSE (AUTOMATED) 2020-03-26 Tato Shearer Un iversity [facility] 09:52:00 Medical Branch POCT GLUCOSE (AUTOMATED) 2020-03-26 [facility] 06:05:00 Medical Branch POCT GLUCOSE (AUTOMATED) 2020-03-26 [facility] 05:52:00 Medical Branch POCT GLUCOSE (AUTOMATED) 2020-03-26 Tato Shearer [facility] [place] 02:28:00 Medical Branch POCT GLUCOSE (AUTOMATED) 2020-03-25 [...] (AUTOMATED) 2020-03-25 Tato Shearer [facility] [place] 10:08:00 Medical Branch POCT GLUCOSE (AUTOMATED) 2020-03-25 Tato Shearer [facility] [place] 06:36:00 Medical Branch POCT GLUCOSE (AUTOMATED) 2020-03-25 Tato Shearer [facility] [place] 02:00:00 Medical Branch POCT GLUCOSE (AUTOMATED) 2020-03-24 Tato Shearer [facility] [place] 22:43:00 Medical Branch POCT GLUCOSE (AUTOMATED) 2020-03-24 Tato Shearer [facility] [place] 17:59:00 Medical Branch POCT GLUCOSE (AUTOMATED) 2020-03-24 Tato Shearer [facility] [place] 13:26:00 Medical Branch POCT GLUCOSE (AUTOMATED) 2020-03-24 Tato Shearer [facility] [place] 10:31:00 Medical Branch CBC WITH DIFF 2020-03-24 [facility] [place] 09:58:00 Medical Branch POCT GLUCOSE (AUTOMATED) 2020-03-24 Tato Shearer [facility] [place] 05:59:00 Medical Branch POCT GLUCOSE (AUTOMATED) 2020-03-24 Tato Shearer [facility] [place] 01:34:00 Medical Branch POCT GLUCOSE (AUTOMATED) 2020-03-23 Tato Shearer [facility] [place] 23:32:00 Medical Branch POCT GLUCOSE (AUTOMATED) 2020-03-23 Tato Shearer [facility] [place] 21:52:00 Medical Branch POCT GLUCOSE (AUTOMATED) 2020-03-23 Tato Shearer [facility] [place] 17:58:00 Medical Branch POCT GLUCOSE (AUTOMATED) 2020-03-23 Tato Shearer [facility] [place] 13:55:00 Medical Branch PHOSPHORUS 2020-03-23 [facility] [place] 11:28:00 Medical Branch MAGNESIUM 2020-03-23 Dong, [facility] [place] 11:28:00 Medical [facility] BASIC METABOLIC PANEL 2020-03-23 [facility] [place] [facility] (NA, K, CL, CO2, 11:28:00 Medical Branch GLUCOSE, BUN, CREATININE, CA) CBC WITH DIFF 2020-03-23 [facility] 11:28:00 Medical Branch POCT GLUCOSE (AUTOMATED) 2020-03-23 Tato Shearer [facility] [place] 09:25:00 Medical Branch POCT GLUCOSE (AUTOMATED) 2020-03-23 Tato Shearer [facility] [place] 05:21:00 Medical Branch POCT GLUCOSE (AUTOMATED) 2020-03-23 Tato Shearer [facility] [place] 01:17:00 Medical Branch POCT GLUCOSE (AUTOMATED) 2020-03-22 Tato Shearer [facility] [place] 23:04:00 Medical Branch POCT GLUCOSE (AUTOMATED) 2020-03-22 Tato Shearer [facility] [place] 18:59:00 Medical Branch POCT GLUCOSE (AUTOMATED) 2020-03-22 Tato Shearer [facility] [place] 15:35:00 Medical Branch POCT GLUCOSE (AUTOMATED) 2020-03-22 Tato Shearer [facility] [place] 13:30:00 Medical Branch PHOSPHORUS 2020-03-22 [facility] [place] 11:09:00 Medical Branch MAGNESIUM 2020-03-22 Toñito, [facility] [place] 11:09:00 Medical Branch BASIC METABOLIC PANEL 2020-03-22 [facility] [place] [facility] (NA, K, CL, CO2, 11:09:00 Medical Branch GLUCOSE, BUN, CREATININE, CA) CBC WITH DIFF 2020-03-22 [facility] [place] 09:42:00 Medical Branch POCT GLUCOSE (AUTOMATED) 2020-03-22 Tato Shearer [facility] [place] 09:22:00 Medical Branch POCT GLUCOSE (AUTOMATED) 2020-03-22 Tato Shearer [facility] [place] 04:21:00 Medical Branch POCT GLUCOSE (AUTOMATED) 2020-03-22 Tato Shearer [facility] [place] 00:24:00 Medical Branch POCT GLUCOSE (AUTOMATED) 2020-03-21 Tato Shearer [facility] [place] 23:02:00 Medical Branch POCT GLUCOSE (AUTOMATED) 2020-03-21 Tato Shearer [facility] [place] 18:42:00 Medical Branch POCT GLUCOSE (AUTOMATED) 2020-03-21 Tato Shearer [facility] [place] 13:38:00 Medical Branch VANCOMYCIN TROUGH 2020-03-21 Phan [facility] 09:17:00 Medical Branch PHOSPHORUS 2020-03-21 [facility] [place] 08:35:00 Medical Branch MAGNESIUM 2020-03-21 [facility] 08:35:00 Medical Branch BASIC METABOLIC PANEL 2020-03-21 [facility] [place] [facility] (NA, K, CL, CO2, 08:35:00 Medical Branch GLUCOSE, BUN, CREATININE, CA) CBC WITH DIFF 2020-03-21 [facility] 08:35:00 Medical Branch POCT GLUCOSE (AUTOMATED) 2020-03-21 Tato Shearer [facility] [place] 08:30:00 Medical Branch POCT GLUCOSE (AUTOMATED) 2020-03-21 Tato Shearer [facility] [place] 05:19:00 Medical Branch POCT GLUCOSE (AUTOMATED) 2020-03-21 Tato Shearer [facility] [place] 00:49:00 Medical Branch CBC WITH DIFF 2020-03-20 [facility] 22:51:00 [facility] Branch POCT GLUCOSE (AUTOMATED) 2020-03-20 Tato Shearer [facility] [place] 21:08:00 Medical Branch POCT GLUCOSE (AUTOMATED) 2020-03-20 Tato Shearer [facility] [place] 16:12:00 Medical Branch POCT GLUCOSE (AUTOMATED) 2020-03-20 Tato Shearer [facility] [place] 12:20:00 Medical Branch PHOSPHORUS 2020-03-20 Dong, [facility] [place] 08:44:00 Medical Branch MAGNESIUM 2020-03-20 Dongur, [facility] [employer] [facility] [place] 08:44:00 Medical Branch BASIC METABOLIC PANEL 2020-03-20 [facility] [place] [facility] (NA, K, CL, CO2, 08:44:00 Medical Branch GLUCOSE, BUN, CREATININE, CA) CBC WITH DIFF 2020-03-20 Dong, [facility] [place] 08:44:00 Medical Branch POCT GLUCOSE (AUTOMATED) 2020-03-20 Tato Shearer [facility] [place] 08:39:00 Medical Branch POCT GLUCOSE (AUTOMATED) 2020-03-20 Tato Shearer [facility] [place] 05:13:00 Medical Branch POCT GLUCOSE (AUTOMATED) 2020-03-20 Tato Shearer [facility] [place] 00:38:00 Medical Branch POCT GLUCOSE (AUTOMATED) 2020-03-19 Tato Shearer [facility] [place] 21:53:00 Medical Branch BLOOD CULTURE SCREEN 2020-03-19 [facility] 18:40:00 Medical Branch POCT GLUCOSE (AUTOMATED) 2020-03-19 Tato Shearer [facility] [place] 16:21:00 Medical Branch POCT GLUCOSE (AUTOMATED) 2020-03-19 Tato Shearer [facility] [place] 12:20:00 Medical Branch PHOSPHORUS 2020-03-19 Dong, [facility] [place] 09:13:00 Medical Branch MAGNESIUM 2020-03-19 Dong, [facility] [place] 09:13:00 Medical Branch BASIC METABOLIC PANEL 2020-03-19 [facility] (NA, K, CL, CO2, 09:13:00 Medical Branch GLUCOSE, BUN, CREATININE, CA) CBC WITH DIFF 2020-03-19 Dong, [facility] [place] 09:13:00 Medical Branch POCT GLUCOSE (AUTOMATED) 2020-03-19 Tato Shearer [facility] [place] 09:03:00 Medical Branch POCT GLUCOSE (AUTOMATED) 2020-03-19 Tato Shearer [facility] 04:35:00 Medical Branch POCT GLUCOSE (AUTOMATED) 2020-03-19 Tato Shearer [facility] 02:09:00 Medical Branch POCT GLUCOSE (AUTOMATED) 2020-03-18 Tato Shearer [facility] 23:00:00 Medical Branch CBC WITHOUT DIFF 2020-03-18 [facility] 21:56:00 Medical Branch PHOSPHORUS 2020-03-18 [facility] 21:55:00 Medical Branch MAGNESIUM 2020-03-18 [facility] 21:55:00 Medical Branch BASIC METABOLIC PANEL 2020-03-18 [facility] (NA, K, CL, CO2, 21:55:00 Medical Branch GLUCOSE, BUN, CREATININE, CA) TRANSFUSE PACKED RBC 2020-03-18 Caio Najera [facility] 20:31:33 Medical Branch SURGICAL PATHOLOGY EXAM 2020-03-18 Tato Shearer [facility] 20:16:00 Medical Branch PREPARE PACKED RBC 2020-03-18 Caio Najera [facility] 19:52:03 Medical Branch NERVE BLOCK 2020-03-18 [facility] xa 18:54:54 Medical Branch BELOW THE KNEE 2020-03-18 Tato Shearer [facility] AMPUTATION 18:26:00 Medical Branch POCT GLUCOSE (AUTOMATED) 2020-03-18 [facility]a [facility] 16:49:00 Medical Branch PHOSPHORUS 2020-03-18 [facility] 14:30:00 Medical Branch MAGNESIUM 2020-03-18 [facility] 14:30:00 Medical Branch BASIC METABOLIC PANEL 2020-03-18 [facility] (NA, K, CL, CO2, 14:30:00 Medical Branch GLUCOSE, BUN, CREATININE, CA) CBC WITH DIFF 2020-03-18 [facility] 14:30:00 Medical Branch POCT GLUCOSE (AUTOMATED) 2020-03-18 Gianluca [facility] 12:48:00 Medical Branch POCT GLUCOSE (AUTOMATED) 2020-03-18 [facility] [address] 08:46:00 [facility] POCT GLUCOSE (AUTOMATED) 2020-03-18 [facility] [address] 04:55:00 [facility] HB ABO GROUPING 2020-03-18 Caio Najera [facility] 03:20:00 [facility] POCT GLUCOSE (AUTOMATED) 2020-03-18 [facility] 03:19:00 [facility] POCT GLUCOSE (AUTOMATED) 2020-03-18 [facility] [address] 01:38:00 [facility] POCT GLUCOSE (AUTOMATED) 2020-03-17 [facility] [address] 17:00:00 [facility] POCT GLUCOSE (AUTOMATED) 2020-03-17 [facility] [address] 12:53:00 [facility] ACTIVATED PARTIAL 2020-03-17 [facility] 09:06:00 [facility] BASIC METABOLIC PANEL 2020-03-17 [facility] (NA, K, CL, CO2, 09:02:00 [facility] GLUCOSE, BUN, CREATININE, CA) VANCOMYCIN TROUGH 2020-03-17 [facility] 09:02:00 [facility] CBC WITH DIFF 2020-03-17 [facility] 09:02:00 [facility] POCT GLUCOSE (AUTOMATED) 2020-03-17 [facility] [address] 08:50:00 [facility] POCT GLUCOSE (AUTOMATED) 2020-03-17 [facility] [address] 04:55:00 [facility] ACTIVATED PARTIAL 2020-03-17 Oyabure, [facility] THRLAS AMARILIS 04:02:00 [facility] POCT GLUCOSE (AUTOMATED) 2020-03-17 [facility] [address] 02:09:00 [facility] HB ABO GROUPING 2020-03-16 [facility] 23:00:00 [facility] POCT GLUCOSE (AUTOMATED) 2020-03-16 [facility] [address] 21:50:00 [facility] BASIC METABOLIC PANEL 2020-03-16 [facility] (NA, K, CL, CO2, 21:26:00 Medical Branch GLUCOSE, BUN, CREATININE, CA) ACTIVATED PARTIAL 2020-03-16 Humaira [facility] THRMPLAS AMARILIS 21:26:00 Medical Branch US RETROPERITONEAL 2020-03-16 Gianluca [facility] COMPLETE 17:06:34 Medical Branch POCT GLUCOSE (AUTOMATED) 2020-03-16 Gianluca [facility] 16:21:00 [facility] URINALYSIS 2020-03-16 [facility] 15:50:00 [facility] DUPLEX SCAN GRAFT LOWER 2020-03-16 Gianluca [facility] EXTREMITY-BILATERAL BY 14:33:15 [facility] VASCULAR LAB PHOSPHORUS 2020-03-16 [facility] 14:20[facility]00 [facility] MAGNESIUM 2020-03-16 [facility] xa 14:20:00 [facility] BASIC METABOLIC PANEL 2020-03-16 [facility] (NA, K, CL, CO2, 14:20:00 [facility] GLUCOSE, BUN, CREATININE, CA) PROTHROMBIN TIME / INR 2020-03-16 [facility] 14:20:00 [facility] ACTIVATED PARTIAL 2020-03-16 Humaira [facility] THRMPLAS [place] 14:20:00 [facility] POCT GLUCOSE (AUTOMATED) 2020-03-16 [facility] 12:53[facility]00 [facility] EVIE MULTI LEVEL BY 2020-03-16 Gianluca [facility] 12:37:21 [facility] EKG-12 LEAD 2020-03-16 [facility] 10:37[facility]51 [facility] WOUND/ASPIRATE OR 2020-03-16 [facility] ABSCESS CULTURE 09:48:00 [facility] WOUND CULTURE 2020-03-16 Gianluca [facility] xa 09:48:00 [facility] XR CHEST 1 VW 2020-03-16 Gianluca [facility] xa 08:48:03 [facility] LACTIC ACID WHOLE BLOOD 2020-03-16 Rosa M Galvan [facility] 08:24:[address] FOOT LEFT WO CONTRAST 2020-03-16 Gianluca [facility] 08:02:27 [facility] COVID-19 (ID NOW RAPID 2020-03-16 Singer [facility] TESTING) 07:33:00 [facility] LAB ONLY COVID 2020-03-16 Singer [facility] xa INTERPRETATION 07:33:00 [facility] BLOOD CULTURE SCREEN 2020-03-16 [facility] 05:57:00 [facility] URIC ACID 2020-03-16 Humaira Timur [facility] [place] xas 05:57:00 [facility] FERRITIN SERUM 2020-03-16 Gianluca, [facility] [place] 05:57:00 [facility] IRON 2020-03-16 Gianluca, [facility] xa 05:57:00 [facility] TROPONIN I 2020-03-16 Gianluca, [facility] xa 05:57:00 [facility] THYROID STIMULATING 2020-03-16 Gianluca [facility] [place] HORMONE 05:57:00 [facility] COMP. METABOLIC PANEL 2020-03-16 [facility] ([id number][facility] 05:57:00 [facility] LIPID PANEL 2020-03-16 [facility] xa ([id number])(TOTAL 05:57:00 [facility] CHOLESTEROL, TRIGLYCERIDES, HDL) SEDIMENTATION RATE 2020-03-16 Gianluca [facility] 05:57:00 [facility] CBC WITH DIFF 2020-03-16 Singer [facility] xa 05:57:00 [facility] GLYCOSYLATED HEMOGLOBIN 2020-03-16 Gianluca [facility] (A1C) 05:57:00 [facility] N-TERMINAL PRO-BNP 2020-03-16 Gianluca [facility] 05:57:00 [facility] BLOOD CULTURE WORKUP 2020-03-16 [facility] 05:57:00 [facility] BLOOD CULTURE WORKUP 2020-03-16 [facility] 05:57:00 [facility] GRAM POSITIVE BLOOD 2020-03-16 Singer [facility] [place] PATHOGENS DNA 05:57:00 [facility] PROBE-ANAEROBIC LOW-DENSITY LIPOPROTEIN, 2020-03-16 Gianluca [facility] DIRECT 05:57:00 [facility] LACTIC ACID WHOLE BLOOD 2020-03-16 Rosa M Galvan [facility] 05:56:00 [facility] XR FOOT <3 VW LEFT 2020-03-16 [facility] 05:28:38 [facility] CONSENT/REFUSAL FOR 2020-03-16 Doctor Unassigned, No [facility] DIAGNOSIS AND TREATMENT 04:40:16 Name [facility] HOSPITAL ADMISSION 2020-03-15 Doctor Unassigned, No [facility] 05:01:00 Name [facility] POCT GLUCOSE (AUTOMATED) 2020-02-05 [facility] 16:54:00 [facility] POCT GLUCOSE (AUTOMATED) 2020-02-05 [facility] 15:33:00 [facility] POCT GLUCOSE (AUTOMATED) 2020-02-05 [facility] 12:51:00 [facility] POCT GLUCOSE (AUTOMATED) 2020-02-05 [facility] 09:10:00 [facility] URIC ACID 2020-02-05 [facility] [place] 08:19:00 [facility] TROPONIN I 2020-02-05 [facility], [facility] xas 08:19:00 [facility] BASIC METABOLIC PANEL 2020-02-05 [facility] (NA, K, CL, CO2, 08:19:00 [facility] GLUCOSE, BUN, CREATININE, CA) CBC WITH DIFF 2020-02-05 [facility] xas 08:19:00 [facility] N-TERMINAL PRO-BNP 2020-02-05 [facility], [facility] 08:19:00 [facility] URINE CULTURE 2020-02-04 [facility] xas 23:03:00 [facility] UREA NITROGEN, URINE 2020-02-04 [facility] RANDOM 23:03:00 [facility] SODIUM, URINE RANDOM 2020-02-04 [facility] 23:02:00 [facility] PROTEIN CREAT RATIO 2020-02-04 [facility] URINE RANDOM 23:02:00 [facility] POCT GLUCOSE (AUTOMATED) 2020-02-04 [facility] 21:36:00 [facility] ECHO ROUTINE W/DOPPLER 2020-02-04 [facility], [facility] COLOR 19:30:09 [facility] TROPONIN I 2020-02-04 [facility], [facility] 17:36:00 [facility] POCT GLUCOSE (AUTOMATED) 2020-02-04 [facility], [facility] 12:47:00 [facility] XR CHEST 1 VW 2020-02-04 [facility], [facility] 10:54:05 [facility] XR FOOT 3+ VW LEFT 2020-02-04 [facility] 10:54:05 [facility] ABORH CONFIRMATION 2020-02-04 [facility] 10:00:00 [facility] POCT GLUCOSE (AUTOMATED) 2020-02-04 [facility] 07:28:00 [facility] HB ABO GROUPING 2020-02-04 [facility], [facility] 06:47:00 [facility] LACTATE DEHYDROGENASE 2020-02-04 [facility] 06:44:00 [facility] URIC ACID 2020-02-04 [facility], [facility] 06:44:00 [facility] VITAMIN B12, LEVEL 2020-02-04 [facility] 06:44:00 [facility] TROPONIN I 2020-02-04 [facility], [facility] 06:44:00 [facility] BASIC METABOLIC PANEL 2020-02-04 [facility] (NA, K, CL, CO2, 06:44:00 [facility] GLUCOSE, BUN, CREATININE, CA) LIPID PANEL 2020-02-04 Ninfa Castillo [facility] ([id number])(TOTAL 06:44:00 [facility] CHOLESTEROL, TRIGLYCERIDES, HDL) IRON PANEL 2020-02-04 [facility], [facility] 06:44:00 [facility] CBC WITH DIFF 2020-02-04 [facility] 06:44:00 [facility] N-TERMINAL PRO-BNP 2020-02-04 [facility] 06:44:00 [facility] VITAMIN D, 25-OH 2020-02-04 [facility], [facility] exas 06:44:00 [facility] PROCALCITONIN 2020-02-04 Benji [facility] xas 06:44:00 [facility] LACTIC ACID WHOLE BLOOD 2020-02-04 [facility] 06:32:00 [facility] COVID-19 (ID NOW RAPID 2020-02-04 [facility] 01:18:00 [facility] EKG-12 LEAD 2020-02-04 [facility] 01:14:34 [facility] EKG-12 LEAD 2020-02-04 [facility] 01:09:[address] [facility]GIOGRAM CHEST 2020-02-03 [facility] ANGIOGRAM 2020-02-03 [facility] ABDOMEN/PELVIS 23:30:25 [facility] URINALYSIS 2020-02-03 [facility] 22:47:00 [facility] GLUCOSE 2020-02-03 [facility] 22:29:00 [facility] PROTEIN TOTAL 2020-02-03 [facility] 22:29:00 [facility] URIC ACID 2020-02-03 [facility] 22:29:00 [facility] AMYLASE 2020-02-03 [facility] [place] 22:29:00 [facility] LIPASE 2020-02-03 [facility] [place] 22:29:00 [facility] FERRITIN SERUM 2020-02-03 [facility] [place] 22:29:00 [facility] TROPONIN I 2020-02-03 [facility] [place] 22:29:00 [facility] THYROID STIMULATING 2020-02-03 [facility] HORMONE 22:29:00 [facility] HEPATIC FUNCTION PANEL 2020-02-03 [facility] ([id number]) (ALB,T.PRO,BILI 22:29:00 [facility] T,BU/BC,ALT,AST,ALK PHOS) BASIC METABOLIC PANEL 2020-02-[address] [facility] (NA, K, CL, CO2, 22:29:00 [facility] GLUCOSE, BUN, CREATININE, CA) CBC WITH DIFF 2020-02-03 [facility] 22:29:00 Medical [facility] PROTHROMBIN TIME / INR 2020-02-03 [facility]ari[facility] 22:29:00 [facility] ACTIVATED PARTIAL 2020-02-03 [facility] THRMPLAS [place] 22:29:00 [facility] N-TERMINAL PRO-BNP 2020-02-[address] [facility] 22:29:00 [facility] CONSENT/REFUSAL FOR 2020-02-03 Doctor Unassigned, No [facility] DIAGNOSIS AND TREATMENT 21:40:53 Name [facility] [place] POCT GLUCOSE (AUTOMATED) 2019-11-21 [facility] 16:56:00 [facility] POCT GLUCOSE (AUTOMATED) 2019-11-21 [facility] 16:35:00 [facility] POCT GLUCOSE (AUTOMATED) 2019-11-21 [facility] 15:58:00 [facility] POCT GLUCOSE (AUTOMATED) 2019-11-21 [facility] 12:31:00 Medical Branch VANCOMYCIN TROUGH 2019-11-21 Edgardo Timur [facility] 11:00:00 [facility] POCT GLUCOSE (AUTOMATED) 2019-11-21 [facility] 00:26:00 [facility] POCT GLUCOSE (AUTOMATED) 2019-11-20 [facility] 21:34:00 Medical [facility] XR CHEST 1 VW 2019-11-20 Ethan [facility] xas 21:23:55 Medical Branch POCT GLUCOSE (AUTOMATED) 2019-11-20 [facility] 15:53:00 [facility] POCT GLUCOSE (AUTOMATED) 2019-11-20 [facility] 12:34:00 [facility] BASIC METABOLIC PANEL 2019-11-20 [facility] (NA, K, CL, CO2, 08:35:00 [facility] Branch GLUCOSE, BUN, CREATININE, CA) CBC WITH DIFFERENTIAL 2019-11-20 [facility] 08:35:00 [facility] POCT GLUCOSE (AUTOMATED) 2019-11-20 [facility] 01:29:00 [facility] NM BONE WHOLE BODY 3 2019-11-19 [facility] PHASE 21:28:28 [facility] POCT GLUCOSE (AUTOMATED) 2019-11-19 [facility], [facility] 16:03:00 [facility] VANCOMYCIN TROUGH 2019-11-19 [facility] 12:23:00 [facility] POCT GLUCOSE (AUTOMATED) 2019-11-19 [facility], [facility] [employer] [facility] 12:15:00 [facility] POCT GLUCOSE (AUTOMATED) 2019-11-19 [facility], [facility] 01:14:00 [facility] POCT GLUCOSE (AUTOMATED) 2019-11-18 [facility], [facility] [employer] [facility] 20:42:00 [facility] POCT GLUCOSE (AUTOMATED) 2019-11-18 [facility], [facility] GardenCanadian [employer] [facility] 16:24:00 [facility] BILATERAL DUPLEX SCAN OF 2019-11-18 [facility] ARTERY BY VASCULAR LAB 14:48:56 Medical ran POCT GLUCOSE (AUTOMATED) 2019-11-18 [facility], [facility] 12:26:[address] [facility] [address] ABDOMEN PELVIS W 2019-11-18 [facility] [place] CONTRAST 01:04:17 [facility] POCT GLUCOSE (AUTOMATED) 2019-11-18 Alds, Mercatuswabashd [employer] sity [facility] 00:47:00 [facility] POCT GLUCOSE (AUTOMATED) 2019-11-17 [facility], [facility] Gardend [employer] s[employer] [facility] 21:03:00 [facility] POCT GLUCOSE (AUTOMATED) 2019-11-17 Aldaa, [employer]wab[employer]d [employer] [facility] 16:11:00 [facility] POCT GLUCOSE (AUTOMATED) 2019-11-17 [facility], [facility] 12:19:00 [facility] POCT GLUCOSE (AUTOMATED) 2019-11-17 Celiagarfield [facility] Gardencelia [facility] 04:14:00 Medical Branch LACTIC ACID WHOLE BLOOD 2019-11-17 [facility] 03:04:00 [facility] POCT GLUCOSE (AUTOMATED) 2019-11-17 Jaimee [facility] Gard[facility] 01:05:[address] FOOT LEFT W CONTRAST 2019-11-17 Timur Gerardo [facility] 00:03:16 [facility] XR ANKLE 3+ VW LEFT 2019-11-16 [facility] 22:17:28 [facility] COVID-19 (ID NOW RAPID 2019-11-16 [facility] 22:15:00 [facility] BLOOD CULTURE SCREEN 2019-11-16 [facility] 22:12:00 [facility] BASIC METABOLIC PANEL 2019-11-16 [facility] (NA, K, CL, CO2, 22:12:00 [facility] GLUCOSE, BUN, CREATININE, CA) CBC WITH DIFFERENTIAL 2019-11-16 [facility] 22:12:00 [facility] GLYCOSYLATED HEMOGLOBIN 2019-11-16 [facility] (A1C) 22:12:00 [facility] LACTIC ACID WHOLE BLOOD 2019-11-16 Marcus [facility] 22:11:00 Medical [facility] BLOOD CULTURE SCREEN 2019-11-[address] [facility] 21:45:00 [facility] CONSENT/REFUSAL FOR 2019-11-16 Doctor Unassigned, No [facility] DIAGNOSIS AND TREATMENT 21:22:[address] ABDOMEN PELVIS W 2019-09-18 [facility] CONTRAST 02:32:17 [facility] LIPASE 2019-09-18 [facility] [place] 01:44:00 [facility] COMP. METABOLIC PANEL 2019-09-18 [facility] ([id number]) 01:44:00 [facility] CBC WITH DIFFERENTIAL 2019-09-18 [facility] 01:44:00 [facility] CORONAVIRUS COVID-19 2019-09-18 Rosemary Carrillo [facility] TESTING 01:44:00 [facility] POCT GLUCOSE (AUTOMATED) 2019-08-15 [facility] 19:44:[address] [facility] [address] ABDOMEN PELVIS W 2019-08-15 Luis [facility] CONTRAST 19:08:31 Medical Branch XR CHEST 2 VW 2019-08-15 [facility] x[place] 18:00:38 [facility] XR FOOT 3+ VW LEFT 2019-08-15 Marty [facility] 18:00:38 [facility] URINALYSIS 2019-08-15 Marty [facility] 17:45:00 [facility] LIPASE 2019-08-15 [facility] 17:39:00 [facility] TROPONIN I 2019-08-15 [facility] 17:39:00 [facility] HEPATIC FUNCTION PANEL 2019-08-15 [facility] ([id number]) (ALB,T.PRO,BILI 17:39:00 [facility] T,BU/BC,ALT,AST,ALK PHOS) BASIC METABOLIC PANEL 2019-08-15 [facility] (NA, K, CL, CO2, 17:39:00 [facility] GLUCOSE, BUN, CREATININE, CA) CBC WITH DIFFERENTIAL 2019-08-15 [facility] 17:39:00 [facility] PROTHROMBIN TIME / INR 2019-08-15 [facility] 17:39:00 [facility] EKG-12 LEAD 2019-08-15 Marty [facility] 17:30:15 [facility] CONSENT/REFUSAL FOR 2019-08-15 Doctor Unassigned, No [facility] DIAGNOSIS AND TREATMENT 16:50:06 Name Medical [facility] POCT GLUCOSE (AUTOMATED) 2019-08-09 Timur Gerardo [facility] 16:28:00 Medical Branch POCT GLUCOSE (AUTOMATED) 2019-08-09 Timur Gerardo [facility] 13:34:00 [facility] MESENTERIC ARTERY DUPLEX 2019-08-09 Timur Gerardo [facility] BY VASCULAR LAB 13:12:31 Medical [facility] VITAMIN B12, LEVEL 2019-08-09 [facility] 08:54:00 [facility] BASIC METABOLIC PANEL 2019-08-09 [facility] (NA, K, CL, CO2, 08:54:00 Medical [facility] GLUCOSE, BUN, CREATININE, CA) IRON PANEL 2019-08-09 [facility] 08:54:00 [facility] CBC WITH DIFFERENTIAL 2019-08-09 [facility] 08:54:00 [facility] POCT GLUCOSE (AUTOMATED) 2019-08-09 [facility] 00:48:00 [facility] FOLATE 2019-08-08 [facility] 23:30:00 [facility] POCT GLUCOSE (AUTOMATED) 2019-08-08 [facility] 22:24:00 [facility] POCT GLUCOSE (AUTOMATED) 2019-08-08 [facility] 16:41:00 [facility] FL UPPER GI SERIES 2019-08-08 Barbara Maria [facility] 16:31:22 Medical [facility] POCT GLUCOSE (AUTOMATED) 2019-08-08 [facility] 12:23:00 Medical Branch FERRITIN SERUM 2019-08-08 [facility] 08:58:00 [facility] BASIC METABOLIC PANEL 2019-08-08 Benji [facility] (NA, K, CL, CO2, 08:58:00 [facility] GLUCOSE, BUN, CREATININE, CA) CBC WITH DIFFERENTIAL 2019-08-08 Benji [facility] 08:58:00 [facility] POCT GLUCOSE (AUTOMATED) 2019-08-08 [facility] 01:40:00 [facility] POCT GLUCOSE (AUTOMATED) 2019-08-07 [facility] 20:06:00 [facility] TROPONIN I 2019-08-07 Antonia Hough [facility] 15:51:00 [facility] POCT GLUCOSE (AUTOMATED) 2019-08-07 [facility] 12:32:00 [facility] MAGNESIUM 2019-08-07 Benji [facility] 08:54:00 Medical Branch TROPONIN I 2019-08-07 [facility] 08:54:00 [facility] BASIC METABOLIC PANEL 2019-08-07 [facility] (NA, K, CL, CO2, 08:54:00 [facility] GLUCOSE, BUN, CREATININE, CA) CBC WITH DIFFERENTIAL 2019-08-07 [facility] 08:54:00 [facility] N-TERMINAL PRO-BNP 2019-08-07 [facility] 08:54:00 Medical Branch TROPONIN I 2019-08-07 Gianluca [facility] 03:07:00 Medical Branch US ABDOMEN COMPLETE 2019-08-07 [facility] 01:18:27 [facility] POCT GLUCOSE (AUTOMATED) 2019-08-07 [facility] 00:41:00 [facility] POCT GLUCOSE (AUTOMATED) 2019-08-06 [facility] 22:34:00 Medical [facility] XR CHEST 1 VW 2019-08-06 Juan José [facility] xa 20:30:27 Medical Branch LIPASE 2019-08-06 [facility] 19:52:00 [facility] MAGNESIUM 2019-08-06 [facility] 19:52:00 [facility] TROPONIN I 2019-08-06 [facility] 19:52:00 [facility] THYROID STIMULATING 2019-08-06 [facility] HORMONE 19:52:00 [facility] COMP. METABOLIC PANEL 2019-08-06 Juan José [facility] ([id number]) 19:52:00 [facility] LIPID PANEL 2019-08-06 [facility] ([id number])(TOTAL 19:52:00 Medical [facility] CHOLESTEROL, TRIGLYCERIDES, HDL) CBC WITH DIFFERENTIAL 2019-08-06 Juan José [facility] 19:52:00 Medical [facility] GLYCOSYLATED HEMOGLOBIN 2019-08-06 [facility] (A1C) 19:52:00 Medical Branch PROTHROMBIN TIME / INR 2019-08-06 [facility] 19:52:00 Medical [facility] ACTIVATED PARTIAL 2019-08-06 Juan [facility] 19:52:00 Medical Branch EKG-12 LEAD 2019-08-06 Juan José [facility] xas 19:51:05 Medical Branch EKG-12 LEAD 2019-08-06 Juan José [facility] xas 19:15:17 Medical Branch ASSIGNMENT OF BENEFITS 2019-08-06 Doctor Unassigned, No [facility] 18:24:58 Name Medical Branch PHYSICIAN ORDERS 2019-08-06 Doctor Unassigned, No [facility] 05:01:00 Name Medical [facility] POCT GLUCOSE (AUTOMATED) 2019-07-18 Rosemary Carrillo [facility] 23:33:00 Medical Branch SEDIMENTATION RATE 2019-07-18 Alek [facility] 20:45:00 Medical Branch ACTIVATED PARTIAL 2019-07-18 Alek [facility] AMARILIS 20:45:00 Medical Branch ECHO ROUTINE W/DOPPLER 2019-07-18 Ryan Medeiros [facility] COLOR 17:35:06 Medical Branch TROPONIN I 2019-07-18 Alek [facility] 17:10:00 [facility] POCT GLUCOSE (AUTOMATED) 2019-07-18 Rosemary Carrillo [facility] 15:35:00 Medical Branch XR FOOT 3+ VW LEFT 2019-07-18 Alek [facility] 12:20:[address] ABDOMEN PELVIS W 2019-07-18 Alek [facility] CONTRAST 11:56:17 Medical [facility] POCT GLUCOSE (AUTOMATED) 2019-07-18 Rosemary Carrillo [facility] 10:18:00 Medical Branch LIPASE 2019-07-18 Alek [facility] [place] 10:12:00 [facility] C-REACTIVE PROTEIN 2019-07-18 Alek [facility] 10:12:00 Medical Branch TROPONIN I 2019-07-18 Alek [facility] [place] 10:12:00 Medical [facility] TROPONIN I 2019-07-18 Rosemary Carrillo [facility] 04:03:00 Medical [facility] COMP. METABOLIC PANEL 2019-07-18 [facility] ([id number]) 04:03:00 Medical [facility] CBC WITH DIFFERENTIAL 2019-07-18 [facility] 04:03:00 Medical [facility] PROTHROMBIN TIME / INR 2019-07-18 [facility] 04:03:00 Medical Branch N-TERMINAL PRO-BNP 2019-07-18 [facility] [place] 04:03:00 [facility] XR CHEST 1 VW 2019-07-18 [facility] [place] 03:56:01 Medical [facility] EKG-12 LEAD 2019-07-18 [facility] [place] 03:45:46 [facility] EKG-12 LEAD 2019-07-18 [facility] [place] 03:39:16 [facility] EKG-12 LEAD 2019-07-18 [facility] [place] 03:37:20 [facility] POCT GLUCOSE (AUTOMATED) 2019-06-26 [facility] 23:04:00 [facility] POCT GLUCOSE (AUTOMATED) 2019-06-26 [facility]ry [facility] 17:50:00 [facility] MAGNESIUM 2019-06-26 Jose [facility] xa 09:44:00 Medical [facility] BASIC METABOLIC PANEL 2019-06-26 [facility] (NA, K, CL, CO2, 09:44:00 Medical Branch GLUCOSE, BUN, CREATININE, CA) CBC WITH DIFFERENTIAL 2019-06-26 Jose [facility] 09:44:00 Medical Branch ACTIVATED PARTIAL 2019-06-26 Pallandrew [facility] THRMPLAS [place] 05:38:00 [facility] ACTIVATED PARTIAL 2019-06-26 Pallandrew [facility] THRMPLAS [place] 02:45:00 [facility] POCT GLUCOSE (AUTOMATED) 2019-06-26 Jeffry [facility] 02:42:00 [facility] ACTIVATED PARTIAL 2019-06-26 [facility] THRMPLAS [place] 00:09:00 [facility] POCT GLUCOSE (AUTOMATED) 2019-06-25 [facility]ry [facility] [place] 21:52:00 [facility] POCT ACT LOW RANGE 2019-06-25 Rober, [facility] 20:37:00 Medical Branch POCT ACT LOW RANGE 2019-06-25 Rober, [facility] 19:20:00 Medical Branch POCT GLUCOSE (AUTOMATED) 2019-06-25 RoberJeffry [facility] 15:41:00 Medical Branch ECHO ROUTINE W/DOPPLER 2019-06-25 [facility] COLOR 14:26:53 Medical Branch ACTIVATED PARTIAL 2019-06-25 [facility] 08:59:00 Medical Branch CREATININE, URINE RANDOM 2019-06-25 [facility] 08:56:00 [facility] UREA NITROGEN, URINE 2019-06-25 [facility] R[facility] 08:56:00 [facility] SODIUM, URINE RANDOM 2019-06-25 [facility] 08:56:00 Medical Branch MAGNESIUM 2019-06-25 Jose [facility] 08:56:00 Medical [facility] TROPONIN I 2019-06-25 [facility] 08:56[facility]00 [facility] BASIC METABOLIC PANEL 2019-06-25 [facility] (NA, K, CL, CO2, 08:56:00 Medical Branch GLUCOSE, BUN, CREATININE, CA) GALV/CLC ONLY - URINE 2019-06-25 [facility] DRUG (IMMUNOASSAY) - 08:56:00 Medical [facility] COMPREHENSIVE DRUG SCREEN CBC WITH DIFFERENTIAL 2019-06-25 [facility] 08:56:00 [facility] TROPONIN I 2019-06-25 [facility] 02:38:00 Medical Branch ACTIVATED PARTIAL 2019-06-25 [facility] THRMPLAS [place] 02:38:00 Medical Branch POCT GLUCOSE (AUTOMATED) 2019-06-25 RoberJeffry [facility] 02:17:00 Medical Branch URINALYSIS 2019-06-24 Janeth Goodson [facility] 21:55:00 Medical Branch XR CHEST 1 VW 2019-06-24 Janeth Goodson [facility] 21:19:06 Medical Branch N-TERMINAL PRO-BNP 2019-06-24 Janeth Goodson [facility] 21:08:00 [facility] PHOSPHORUS 2019-06-24 Jose [facility] 21:08:00 Medical Branch MAGNESIUM 2019-06-24 Janeth Goodson [facility] 21:08:00 [facility] TROPONIN I 2019-06-24 Janeth Goodson [facility] 21:08:00 Medical Branch THYROID STIMULATING 2019-06-24 Janeth Goodson [facility] HORMONE 21:08:00 [facility] HEPATIC FUNCTION PANEL 2019-06-24 Janeth Goodson [facility] ([id number]) (ALB,T.PRO,BILI 21:08:00 Medical Branch T,BU/BC,ALT,AST,ALK PHOS) BASIC METABOLIC PANEL 2019-06-24 Janeth Goodson [facility] (NA, K, CL, CO2, 21:08:00 Medical Branch GLUCOSE, BUN, CREATININE, CA) CBC WITH DIFFERENTIAL 2019-06-24 Janeth Goodson [facility] 21:08:00 [facility] GLYCOSYLATED HEMOGLOBIN 2019-06-24 Cade Garcia [facility] (A1C) 21:08:00 [facility] PROTHROMBIN TIME / INR 2019-06-24 Janeth Goodson [facility] 21:08:00 [facility] EKG-12 LEAD 2019-06-24 Janeth Goodson [facility] 21:01:21 [facility] EKG-12 LEAD 2019-06-24 Janeth Goodson [facility] 20:56:30 Medical Branch NOTICE OF PRIVACY 2019-06-24 Doctor Unassigned, No [facility] PRACTICES 20:46:45 Name Medical [place] CONSENT/REFUSAL FOR 2019-06-24 Doctor Unassigned, [facility] DIAGNOSIS AND TREATMENT 20:46:25 Name [facility] US SCROTUM AND CONTENTS 2019-02-06 Antonia Cedeno [facility] 01:39:04 Medical Branch BASIC METABOLIC PANEL 2019-02-05 Antonia Cedeno [facility] (NA, K, CL, CO2, 23:17:00 Medical Branch GLUCOSE, BUN, CREATININE, CA) CBC WITH DIFFERENTIAL 2019-02-05 Antonia Cedeno [facility] 23:17:00 [facility] URINALYSIS 2019-02-05 Antonia [facility] 23:17:00 Medical Branch CONSENT/REFUSAL FOR 2019-02-05 Doctor Unassigned, Lucero [facility] DIAGNOSIS AND TREATMENT 22:21:30 Name Medical Branch POCT GLUCOSE (AUTOMATED) 2019-01-29 [facility] 16:43:00 Medical Branch POCT GLUCOSE (AUTOMATED) 2019-01-29 [facility] 14:46:00 Medical Branch MAGNESIUM 2019-01-29 [facility] xa 09:12:00 Medical Branch BASIC METABOLIC PANEL 2019-01-29 [facility] (NA, K, CL, CO2, 09:12:00 Medical Branch GLUCOSE, BUN, CREATININE, CA) POCT GLUCOSE (AUTOMATED) 2019-01-29 [facility] 03:03:00 Medical Branch POCT GLUCOSE (AUTOMATED) 2019-01-29 [facility] 01:36:00 Medical Branch POCT GLUCOSE (AUTOMATED) 2019-01-28 [facility] 23:13:00 Medical Branch CBC WITH DIFFERENTIAL 2019-01-28 Mukesh Phelan [facility] 21:06:00 Medical Branch POCT ACT LOW RANGE 2019-01-28 [facility] 18:40:00 Medical Branch POCT ACT LOW RANGE 2019-01-28 [facility] 17:47:00 Medical Branch POCT ACT LOW RANGE 2019-01-28 [facility] 17:40:00 Medical Branch POCT GLUCOSE (AUTOMATED) 2019-01-28 [facility] 13:14:00 Medical Branch MAGNESIUM 2019-01-28 [facility] xa 09:34:00 Medical Branch BASIC METABOLIC PANEL 2019-01-28 [facility] (NA, K, CL, CO2, 09:34:00 Medical Branch GLUCOSE, BUN, CREATININE, CA) CBC WITH DIFFERENTIAL 2019-01-28 [facility] 09:34:00 Medical Branch ACTIVATED PARTIAL 2019-01-28 [facility] THRMPLAS [place] 04:52:00 Medical Branch POCT GLUCOSE (AUTOMATED) 2019-01-28 [facility] 01:52:00 Medical Branch POCT GLUCOSE (AUTOMATED) 2019-01-27 Siva Can [facility] 23:35:00 Medical Branch POCT GLUCOSE (AUTOMATED) 2019-01-27 Juan José [facility] 20:40:00 Medical Branch POCT GLUCOSE (AUTOMATED) 2019-01-27 Siva Can [facility] 17:44:00 Medical Branch ACTIVATED PARTIAL 2019-01-27 [facility] 17:36:00 Medical Branch EKG-12 LEAD 2019-01-27 [facility] 14:21:58 Medical Branch POCT GLUCOSE (AUTOMATED) 2019-01-27 [facility] 12[facility]55:00 Medical Branch MAGNESIUM 2019-01-27 [facility] xa 05:14:00 Medical Branch TROPONIN I 2019-01-27 [facility] xa 05:14:00 Medical Branch BASIC METABOLIC PANEL 2019-01-27 [facility] (NA, K, CL, CO2, 05:14:00 Medical Branch GLUCOSE, BUN, CREATININE, CA) CBC WITH DIFFERENTIAL 2019-01-27 [facility] 05:14:00 Medical Branch ACTIVATED PARTIAL 2019-01-27 [facility] 05:14:00 Medical Branch POCT GLUCOSE (AUTOMATED) 2019-01-27 Siva Can [facility] 01:12:00 Medical Branch ACTIVATED PARTIAL 2019-01-26 [facility] 22:32:00 Medical Branch POCT GLUCOSE (AUTOMATED) 2019-01-26 Siva Can [facility] 21:36:00 Medical Branch XR ABDOMEN ACUTE SERIES 2019-01-26 Brian James [facility] 19:40:00 Medical Branch CBC WITH DIFFERENTIAL 2019-01-26 Brian James [facility] 18:49:00 Medical Branch POCT GLUCOSE (AUTOMATED) 2019-01-26 Siva Can [facility] 16:31:00 Medical Branch POCT GLUCOSE (AUTOMATED) 2019-01-26 Juan José Siva [facility] 13:43:00 Medical Branch CBC WITH DIFFERENTIAL 2019-01-26 [facility] 11:31:00 Medical Branch MAGNESIUM 2019-01-26 [facility] x[place] 11:30:00 Medical Branch BASIC METABOLIC PANEL 2019-01-26 [facility] (NA, K, CL, CO2, 11:30:00 Medical Branch GLUCOSE, BUN, CREATININE, CA) ACTIVATED PARTIAL 2019-01-26 [facility] 11:30:00 Medical Branch POCT GLUCOSE (AUTOMATED) 2019-01-26 Juan José [facility] 01:48:00 Medical Branch ACTIVATED PARTIAL 2019-01-25 [facility] [place] 23:11:00 Medical Branch POCT GLUCOSE (AUTOMATED) 2019-01-25 [facility] 21:53:00 Medical Branch POCT GLUCOSE (AUTOMATED) 2019-01-25 Juan José [facility] 17:18:00 Medical Branch BILATERAL VENOUS DUPLEX 2019-01-25 Brian James [facility] LOWER EXTREMITY BY 16:11:13 [facility] POCT GLUCOSE (AUTOMATED) 2019-01-25 Juan José [facility] 12:34:00 Medical Branch EKG-12 LEAD 2019-01-25 [facility] xas 12:28:41 Medical Branch ACTIVATED PARTIAL 2019-01-25 [facility] 11:40:00 Medical Branch TROPONIN I 2019-01-25 [facility] x[place] 09:04:00 Medical Branch MAGNESIUM 2019-01-25 [facility] xas 05:36:00 Medical Branch TROPONIN I 2019-01-25 [facility] x[facility] 05:36:00 Medical Branch BASIC METABOLIC PANEL 2019-01-25 [facility] (NA, K, CL, CO2, 05:36:00 Medical Branch GLUCOSE, BUN, CREATININE, CA) CBC WITH DIFFERENTIAL 2019-01-25 [facility] 05:36:00 Medical Branch EKG-12 LEAD 2019-01-25 [facility] 03:57:13 Medical Branch EKG-12 LEAD 2019-01-25 [facility] 03:52:19 Medical Branch POCT GLUCOSE (AUTOMATED) 2019-01-24 Can, [facility] 23:31:[address] ABDOMEN PELVIS W 2019-01-24 Juan José [facility] [place] CONTRAST 22:55:10 Medical Branch XR CHEST 1 VW 2019-01-24 Juan José [facility] [place] 22:06:35 Medical Branch LIPASE 2019-01-24 Juan José [facility] 21:50:00 Medical Branch MAGNESIUM 2019-01-24 [facility] 21:50:00 Medical Branch TROPONIN I 2019-01-24 [facility] 21:50[facility]00 [facility] HEPATIC FUNCTION PANEL 2019-01-24 [facility] ([id number]) (ALB,T.PRO,BILI 21:50:00 Medical Branch T,BU/BC,ALT,AST,ALK PHOS) BASIC METABOLIC PANEL [facility] ([facility], K, CL, CO2, 21:50:00 Medical Branch GLUCOSE, BUN, CREATININE, CA) CBC WITH DIFFERENTIAL 2019-01-24 Juan José [facility] 21:50:00 [facility] PROTHROMBIN TIME / INR 2019-01-24 [facility] 21:50:00 Medical Branch ACTIVATED PARTIAL 2019-01-24 [facility] [place] 21:50:00 [facility] EKG-12 LEAD 2019-01-24 [facility] 21[facility]05:00 Medical Branch NOTICE OF PRIVACY 2019-01-24 Doctor Unassigned, No [facility] PRACTICES 20:21:09 Name Medical Branch XR CHEST 1 VW 2019-01-19 Brian James [facility] 13:12:47 Medical Branch MAGNESIUM 2019-01-[address] [facility] 11:12:00 Medical Branch BASIC METABOLIC PANEL 2019-01-19 [facility] (NA, K, CL, CO2, 11:12:00 Medical Branch GLUCOSE, BUN, CREATININE, CA) POCT GLUCOSE (AUTOMATED) 2019-01-19 [facility] 08:49:00 Rosa Arreola [facility] POCT GLUCOSE (AUTOMATED) 2019-01-19 [facility] 04:16:00 Ltac, Located [facility] POCT ACT LOW RANGE 2019-01-19 Dennis Finley [facility] 02:10:00 Ltac, Located [facility] POCT GLUCOSE (AUTOMATED) 2019-01-18 Benji [facility] 21:00:00 Medical Branch POCT GLUCOSE (AUTOMATED) 2019-01-18 [facility] 15:58:00 Medical Branch POCT GLUCOSE (AUTOMATED) 2019-01-18 [facility] 13:16:00 Medical Branch MAGNESIUM 2019-01-18 Josuetx [facility] 08:49:00 Medical Branch [facility]OPONIN I 2019-01-[facility] 08:49[facility]00 Medical Branch HEPATIC FUNCTION PANEL 2019-01-18 Brian James [facility] ([id number]) (ALB,T.PRO,BILI 08:49:00 Medical Branch T,BU/BC,ALT,AST,ALK PHOS) PROTHROMBIN TIME / INR 2019-01-[address] [facility] 08:49:00 Medical Branch POCT GLUCOSE (AUTOMATED) 2019-01-18 [facility] 08:23:00 Medical Branch POCT GLUCOSE (AUTOMATED) 2019-01-18 [facility] 05:04:00 Medical Branch POCT GLUCOSE (AUTOMATED) 2019-01-18 Benji [facility] 00:48:00 Medical Branch TROPONIN I 2019-01-17 Benij [facility] 21:12:00 Medical Branch POCT GLUCOSE (AUTOMATED) 2019-01-17 [facility] 20:56:00 Medical Branch POCT GLUCOSE (AUTOMATED) 2019-01-17 [facility] 16:32:00 Medical Branch TROPONIN I 2019-01-17 [facility] 15:56:00 Medical Branch POCT GLUCOSE (AUTOMATED) 2019-01-17 [facility] 12:21:00 Medical Branch POCT GLUCOSE (AUTOMATED) 2019-01-17 Benji [facility] 09:35:00 Medical Branch TROPONIN I 2019-01-17 Benji [facility] xa 08:48:00 Medical Branch XR CHEST 1 VW 2019-01-17 Shekhar Allen [facility] 05:21:55 Medical Branch TROPONIN I 2019-01-17 Shekhar Allen [facility] [place] xa 05:11:00 Medical Branch BASIC METABOLIC PANEL 2019-01-17 Shekhar Allen [facility] (NA, K, CL, CO2, 05:11:00 Medical Branch GLUCOSE, BUN, CREATININE, CA) CBC WITH DIFFERENTIAL 2019-01-17 Shekhra Allen [facility] 05:11:00 [facility] GLYCOSYLATED HEMOGLOBIN 2019-01-17 Benji [facility] (A1C) 05:11:00 Medical Branch EKG-12 LEAD 2019-01-17 Shekhar Allen [facility] 05:06:38 Medical Branch EKG-12 LEAD 2019-01-17 Shekhar Allen [facility] 04:55:06 Medical Branch NOTICE OF PRIVACY 2019-01-17 Doctor Unassigned, No [facility] PRACTICES 04:54:43 Name [facility] CONSENT/REFUSAL FOR 2019-01-17 Doctor Unassigned, No [facility] DIAGNOSIS AND TREATMENT 04:50:58 Name Medical Branch HOSPITAL ADMISSION 2019-01-16 Doctor Unassigned, No [facility] 05:01:00 Name [facility] Computed tomography 2017-10-[address] [facility] - angiography of brain 00:00:00 Patients [facility] CT angiography of chest 2017-10-23 [facility]00 Patients [facility] Computed tomography of 2017-10-[address] [facility] - brain without radiopaque 00:00:00 Patient s [facility] Computed tomography of 2017-04-04 JACQUELYN MONTES DE OCA [facility] - brain without radiopaque 00:00:00 Patient s [facility] Computed tomography of 2017-04-04 JACQUELYN MONTES DE OCA 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 06:01:00 Name Medical Branch Encounters Start End Encounter Admission Attending Care Care Encounter Source Date/Time Date/Time Type Type Clinicians Facility Department ID 2021-03-22 Emergency [facility] [id number] Univers 15:25:20 ity [facility] 2021-03-22 Emergency [facility] [id number] Univers 10:56:41 [facility] 2021-03-21 Emergency [facility] [id number] Univers 18:15:08 [facility] 2021-03-21 Emergency [facility] [id number] Univers 17:18:22 [facility] 2021-03-21 Emergency [facility] [id number] Univers 12:58:19 ity [facility] 2021-03-21 Emergency [facility] [id number] Univers 04:06:22 [facility] 2021-03-21 Emergency [facility] [id number] Univers 00:12:27 [facility] 2021-03-20 Emergency [facility] [id number] Univers 15:57:30 [facility] 2021-03-20 Emergency [facility] [id number] Univers 00:55:44 [facility] 2021-03-19 Emergency [facility] [id number] Univers 17:28:47 ity [facility] 2021-03-19 Emergency [facility] [id number] Univers 03:16:03 [facility] 2021-03-18 Emergency [facility] [id number] Univers 13:56:50 [facility] 2020-08-23 Inpatient HCACL FERNANDO [facility] 17:41:00 [id number] [facility] 2020-04-04 Inpatient Zhu, HCAMN HCAMN [facility] 14:40:00 Harshal [id number] [facility] 2019-10-15 Inpatient RADHA Shah, HCAPM ENDO [facility] 15:30:00 Finn [id number] [facility] 2021-02-15 2021-02-15 Outpatient R DONALDO, [facility] [id number] Univers 15:00:00 15:00:00 ALECIA [id number] ity [facility] 2021-02-15 2021-02-15 Outpatient R DONALDO, [facility] [id number] Univers 15:00:00 15:00:00 ALECIA ity [facility] 2021-01-11 2021-01-11 Outpatient R [facility] [id number] Univers 14:30:00 14:30:00 [id number] ity [facility] 2021-01-11 2021-01-11 [facility] [id number] Univers 10:45:00 10:45:00 GINA baugh o f [facility] 2021-01-05 2021-01-05 Transition Latrice Aleman [id number] Univers 00:00:00 00:00:00 of Care Rico Vazquez [id number] [id number] [phone] [facility] 403 Branch 2021-01-01 2021-01-04 Hospital Siva Can [facility] 1.2.840.1 [id number] Univers 14:18:00 18:10:00 Encounter Timur Gerardo [id number] it[id number] [phone] [facility] 081 Branch 2021-01-01 2021-01-01 Orders Doctor TATO 1.2.840.114 [id number] Univers 00:00:00 00:00:00 Only Unassigned, CRISTINA [id number] ity of [place] [facility] [id number] [place] J as [id number] [facility] 009 Branch 2020-12-17 2020-12-17 Transition Latrice Harding [id number] Univers 00:00:00 00:00:00 of Care Josselyn Vazquez [id number] it y [id number] [phone] [facility] 403 Branch 2020-12-14 2020-12-16 Emergency Antonia Cedeno S [facility] 1.2.840.1 [id number] Univers 17:50:00 17:46:00 Ana Maria Cardenas [id number] ity of [id number] [id number] [facility] 081 Branch 2020-11-16 2020-11-16 Orders Doctor TAOT 1.2.840.114 [id number] Univers 00:00:00 00:00:00 Only Unassigned, CRISTINA [id number] ity of [place] [facility] [id number] Juan J as [phone] [facility] 009 Branch 2020-10-30 2020-11-05 [id number] 16:50:00 13:52:00 Fede [id number] [facility] 2020-10-31 2020-10-31 Outpatient Debi, HCACL LABO [id number] [facility] 08:22:00 08:22:00 Fede [id number] [facility] 2020-10-28 2020-10-28 Hospital Radiology [facility] 1.2.840.114 [id number] Univers 08:30:17 23:59:00 Encounter Sera [id number] ity of [place] [id number] [facility] [place] [phone] [facility] 807 Branch 2020-10-28 2020-10-28 Hospital Radiology [facility] 1.2.840.114 [id number] 08:30:17 23:59:00 Encounter [place] [id number] [place] [id number] [place] [id number] 2020-10-28 2020-10-28 Outpatient R RADIOLOGY [facility] [id number] Univers 09:00:00 09:00:00 [id number] ity of [facility] 2020-10-28 2020-10-28 Outpatient R RADIOLOGY [facility] [id number] Univers 00:00:00 [facility] 2020-10-12 2020-10-12 Office [facility] 1.2.840.114 [id number] Univers 14:02:10 14:50:48 Visit Perla Sera [id number] i [id number] [phone] Ma dical [address] 2020-10-12 2020-10-12 Outpatient R [facility] [id number] Univers 14:00:00 14:00:00 [facility] [id number] [facility] 2020-10-12 2020-10-12 Outpatient R [facility] [id number] Univers 14:00:00 14:00:00 [facility] 2020-10-06 2020-10-06 Office [facility] 1.2.840.114 [id number] 10:43:51 11:59:29 Visit Gina Zamora [id number] [place] [id number] Professio [phone] [address] 2020-10-06 2020-10-06 Office [facility] 1.2.840.114 [id number] Univers 10:43:51 11:59:29 Visit Gina Zamora [id number] ity [facility] [id number] [phone] Ma dic[address] 2020-10-06 2020-10-06 Outpatient R [facility] [id number] Univers 10:30:00 10:30:00 GINA [id number] amauri workman [facility] 2020-10-06 2020-10-06 Outpatient R [facility] [id number] Univers 10:30:00 10:30:00 GINA baugh o f [facility] 2020-10-06 2020-10-06 Orders Doctor GARCIA 1.2.840.114 [id number] Univers 00:00:00 00:00:00 Only Unassigned, CRISTINA [id number] ity of [place] [facility] [id number] Juan J as [phone] [facility] 009 Branch 2020-10-05 2020-10-05 Outpatient R CHING [facility] [id number] Univers 14:00:00 14:00:00 PERLA [id number] it[facility] 2020-09-28 2020-09-28 [facility] 1.2.840.114 [id number] Univers 17:28:00 21:08:00 Teresoamy Zamora [id number] ity of [id number] [phone] [facility] 084 Branch 2020-09-28 2020-09-28 Transition Latrice French 1.2.840.114 [id number] Univers 00:00:00 00:00:00 of Care Gilda Zelayay [id number] it y [id number] [phone] [facility] 403 Branch 2020-09-23 2020-09-26 [facility] Siva Can [facility] 1.2.840.1 [id number] Univers 13:50:00 18:28:00 Encounter Blake Fernandez [id number] ity of [id number] [id number] [facility] 081 Branch 2020-09-22 2020-09-22 [facility] [id number] Univers 09:45:00 09:45:00 GINA [id number] franciscoy o f [facility] 2020-09-22 2020-09-22 Outpatient R IVANA [facility] [id number] Univers 09:45:00 09:45:00 GINA baugh o f [facility] 2020-09-10 2020-09-10 Outpatient R CHING [facility] [id number] Univers 16:15:00 16:15:00 PERLA [id number] ity of [facility] 2020-09-10 2020-09-10 [facility] [id number] Univers 16:15:00 16:15:00 PERLA ity [facility] 2020-09-09 2020-09-09 Transition Latrice Aleman 1.2.840.114 [id number] Univers 00:00:00 00:00:00 of Care Rico Vazquez [id number] [id number] [phone] [address] 2020-09-08 2020-09-08 [facility] [id number] Univers 08:30:00 08:30:00 GINA [id number] amauri workman [facility] 2020-09-08 2020-09-08 [facility] [id number] Univers 08:30:00 08:30:00 GINA workman [facility] 2020-09-02 2020-09-07 [facility] Tato Guy [facility] 1.2.840.114 [id number] Univers 16:46:00 18:45:00 Encounter [facility] [id number] ity of [place] [id number] [place] Kaylyn Calvin Mejia [phone] [address] ([facility]) 2020-08-26 2020-08-26 Office [facility] 1.2.840.114 [id number] Univers 10:44:06 11:14:06 Visit [facility] [id number] it y of [id number] [phone] [address] Office Building 2020-08-26 2020-08-26 Outpatient R JANI [facility] [id number] Univers 10:30:00 10:30:00 [id number] ity [facility] 2020-08-26 2020-08-26 Outpatient R JANI [facility] [id number] Univers 10:30:00 10:30:00 ity [facility] 2020-08-25 2020-08-25 Outpatient R IVANA [facility] [id number] L-20 Univers 10:00:00 10:00:00 GINA [id number] franciscovashti workman [facility] 2020-08-25 2020-08-25 Outpatient R IVANA [facility] [id number] Univers 10:00:00 10:00:00 GINA workman [facility] 2020-08-24 2020-08-24 Outpatient YENI [facility] [id number] Univers 09:00:00 09:00:00 DEIDRE [id number] [facility] 2020-08-24 2020-08-24 [facility] [id number] Univers 09:00:00 09:00:00 DEIDRE [facility] 2020-08-21 2020-08-21 Office [facility] 1.2.840.114 [id number] Univers 08:43:52 09:13:46 Visit Gina Zamora 350.1.13.10 [facility] 4.2.7.2.[address] [facility] garfield Professio [phone] Ma dical [address] 2020-08-21 2020-08-21 Outpatient R IVANA [facility] [id number]-20 Univers 08:30:00 08:30:00 GINA [id number] franciscovashti [facility] 2020-08-21 2020-08-21 Outpatient [facility] [id number] Univers 08:30:00 08:30:00 GINA singhvashti workman [facility] 2020-08-19 2020-08-19 Outpatient MAURILIO [facility] [id number] -[id number] [facility] 07:13:00 07:13:00 DOES_NOT [id number] [facility] 2020-08-10 2020-08-14 Inpatient EM ANNEL MontanezCL INTE.02 [id number] [facility] 09:09:00 18:56:00 Johnie 85180 [facility] 2020-08-11 2020-08-11 Outpatient [facility] [id number] L-20 Univers 09:15:00 09:15:00 GINA [id number] ity [facility] 2020-08-11 2020-08-11 Outpatient R [facility] [id number] Univers 09:15:00 09:15:00 GINA baugh [facility] 2020-08-07 2020-08-07 Outpatient R [facility] [id number]-20 Univers 10:00:00 10:00:00 GINA [id number] amauri [facility] 2020-08-07 2020-08-07 Outpatient R [facility] [id number] Univers 10:00:00 10:00:00 GINA baugh [facility] 2020-07-27 2020-08-06 [facility] Rosa M Galvan 1.2.840.1 14 [id number] Univers 12:13:00 17:15:00 Encounter Minnie Cardona 350.1.13.10 ity of [facility] 4.2.7.2.686 Drew Martinez [phone] [facility] [address] 2020-07-24 2020-07-24 Outpatient R [facility] [id number]-20 Univers 13:00:00 13:00:00 GINA [id number] amauri [facility] 2020-07-24 2020-07-24 Outpatient R [facility] [id number] Univers 13:00:00 13:00:00 GINA ity [facility] 2020-07-21 2020-07-21 Transition Latrice Aleman 1.2.840.114 [id number] Univers 00:00:00 00:00:00 of Care Rico Vazquez 350.1.13.10 ity of [place] 4.2.7.2.686 [facility] [phone] [address] 2020-07-10 2020-07-20 [facility] Janeth Goodson 1.2.84 0.114 [id number] Univers 19:24:00 21:51:00 Encounter Oc Bryson 350.1.13.10 it[facility] 4.2.7.2.686 [place] Minnie Cardona [phone] Medical Lisa Marroquin5 Aleah meek 2020-07-17 2020-07-17 Outpatient Tim [facility] [id number] -[id number] Univers 10:00:00 10:00:00 TATO [id number] amauri [facility] 2020-07-17 2020-07-17 Outpatient Tim [facility] [id number] Univers 10:00:00 10:00:00 TATO baugh [facility] 2020-07-10 2020-07-10 Outpatient Tim [facility] [id number]-20 Univers 08:45:00 08:45:00 GINA [id number] amauri workman [facility] 2020-07-10 2020-07-10 Outpatient Tim [facility] [id number] Univers 08:45:00 08:45:00 GINA workman [facility] 2020-06-15 2020-06-15 Telephone [facility] 1.2.045.436 [id number] Univers 00:00:00 00:00:00 Tato [place] 350.1.13.10 i ty of [place]ela [place] 4.2.7.2.686 [facility] [phone] Ma dical nal [address] 2020-06-11 2020-06-11 Office [facility] 1.2.840.114 [id number] Univers 13:43:55 13:58:55 Visit [facility] 350.1.13.10 it y of [place] [facility] 4.2.7.2.686 [facility] - [phone] [facility] [address] 2020-06-11 2020-06-11 Outpatient Tim [facility] [id number] -[id number] Univers 13:30:00 13:30:00 TATO Carranza121 vashti [facility] 2020-06-11 2020-06-11 Outpatient R [facility] [id number] Univers 13:30:00 13:30:00 TATO baugh [facility] 2020-06-03 2020-06-03 Transition Latrice Aleman 1.2.840.114 [id number] Univers 00:00:00 00:00:00 of Care Rico Andrew Vazquez 350.1.13.10 ity of [place] 4.2.7.2.686 [facility] [phone] [facility] [address] 2020-05-29 2020-06-02 [facility] Rosa M Galvan [facility] 1.2.840.1 14 [id number] Univers 09:12:00 16:02:00 Encounter Timur Gerardo 350.1.13.10 ity of Martha Row[place] 4.2.7.2.686 [facility] [phone] [facility] [address] 2020-05-29 2020-05-29 Outpatient Tim [facility] [id number] -[id number] Univers 10:15:00 10:15:00 TATO [id number] ity [facility] 2020-05-29 2020-05-29 Outpatient Tim [facility] [id number] Univers 10:15:00 10:15:00 TATO baugh [facility] 2020-05-28 2020-05-28 Outpatient Tim [facility] [id number] -[id number] Univers 13:45:00 13:45:00 TATO [id number] ity [facility] 2020-04-23 2020-04-23 Office [facility] 1.2.840.114 [id number] Univers 13:48:18 14:03:18 Visit [facility] 350.1.13.10 it y of [place] 4.2.7.2.686 [facility] [phone] [facility] [address] 2020-04-23 2020-04-23 Outpatient Tim [facility] [id number] -[id number] Univers 13:30:00 13:30:00 TATO [id number] ity [facility] 2020-04-23 2020-04-23 Outpatient Tim [facility] [id number] Univers 13:30:00 13:30:00 TATO ity [facility] 2020-04-23 2020-04-23 Orders Doctor TATO 1.2.840.114 [id number] Univers 00:00:00 00:00:00 Only Unassigned, CRISTINA 350.1.13.10 it[place] of [place] [facility] 4.2.7.2.686 Juan J as [phone] [facility] [address] 2020-04-09 2020-04-09 Office Janki [facility] 1.2.840.114 [id number] Univers 13:58:45 14:13:45 Visit [facility] 350.1.13.10 it y of [place].2.[place] [facility] [phone] Med ical [facility] [address] 2020-04-09 2020-04-09 Outpatient R JANKI [facility] [id number] -20 Univers 14:00:00 14:00:00 TATO [id number] ity of [facility] 2020-04-09 2020-04-09 Outpatient R [facility] [id number] Univers 14:00:00 14:00:00 TATO ity of [facility] 2020-03-27 2020-03-27 Transition Latrice Aleman 1.2.840.114 [id number] Univers 00:00:00 00:00:00 of Care Rico Vazquez 350.1.13.10 ity of [place].2.[place] [phone] [facility] [address] 2020-03-15 2020-03-26 Hospital Rosa M Galvan 1.2.840.1 14 [id number] Univers 23:48:00 18:02:00 Encounter Kandis Hough 350.1.13.10 ity of [facility] 4.2.7.2.68 6 [place] [phone] [facility] [address] 2020-03-18 2020-03-18 Anesthesia Caio Najera 1. 2.840.114 [id number] Univers 13:52:00 16:42:00 Stephanie Franks 350.1.13.10 ity of [facility] 4.2.7.2.686 Juan J as [phone] [facility] [address] 2020-02-06 2020-02-06 Transition Latrice Aleman 1.2.840.114 [id number] Univers 00:00:00 00:00:00 of Care Rico Vazquez 350.1.13.10 ity of [place] [phone] [facility] [address] 2020-02-03 2020-02-05 [facility] Óscar Hermosillo [facility] 1.2.8 40.114 [id number] Univers 16:55:00 20:40:00 Encounter Martha Rowe 350.1.13.10 ity of [place].2.686 [place] [phone] [place] [address] 2020-01-17 2020-01-17 Outpatient [facility] [id number] -[id number] Univers 13:30:00 13:30:00 [id number] ity of [facility] 2020-01-17 2020-01-17 Outpatient R ANNA [facility] [id number] Univers 13:30:00 13:30:00 SENDIL ity of [facility] 2019-12-02 2019-12-02 Outpatient [facility] [id number] -[id number] Univers 15:00:00 15:00:00 [id number] ity of [facility] 2019-12-02 2019-12-02 Outpatient R [facility] [id number] Univers 15:00:00 15:00:00 ity of [facility] 2019-11-24 2019-11-24 Outpatient R HUMAIRA [facility] [id number] Univers 09:10:00 09:10:00 TIMUR ity of [facility] 2019-11-16 2019-11-21 [facility] Lopez Velazquez [facility] 1.2.840 .114 [id number] Univers 16:35:23 14:12:00 Encounter Heather Hermosillo 350.1.13.1 0 ity of [place].2.[place] [phone] [place] [address] [address] 2019-09-17 2019-09-18 Emergency [facility] 1.2.991.074 [id number] Univers 20:30:04 00:41:00 Rosemary Zamora 350.1.13.10 ity of [place].2.[place] [phone] [place] [address] 2019-09-17 2019-09-18 Emergency X YARIMA, [facility] ERT [id number] Univers 20:30:04 00:41:00 FELIHENRRY ity [facility] 2019-09-05 2019-09-05 Outpatient R ANNA [facility] [id number] -[id number] Univers 14:00:00 14:00:00 SENDIL [id number] ity [facility] 2019-09-05 2019-09-05 [facility] [id number] Univers 14:00:00 14:00:00 [facility] 2019-09-05 2019-09-05 Telemedici [facility] 1.2.840.114 [id number] Univers 08:17:17 08:47:17 ne Visit Sendil Hannah Zamora 350.1.13.10 ity of [place]2.[place] [phone] Ma dicwy nal [address] [place] [address] 2019-09-05 2019-09-05 Telephone [facility]NEW [facility] 1.2.817.813 [id number] Univers 00:00:00 00:00:00 Sendil Hannah Zamora 350.1.13.10 ity of [place] Profess[place] [phone] Ma dic[address] 2019-09-03 2019-09-03 Outpatient R ANNA [facility] [id number] -[id number] Univers 10:30:00 10:30:00 SENDIL [id number] ity [facility] 2019-09-03 2019-09-03 Outpatient [facility] [id number] Univers 10:30:00 10:30:00 [facility] 2019-08-20 2019-08-20 Telephone [facility]NEW [facility] 1.2.439.336 [id number] Univers 00:00:00 00:00:00 Nika SHAW 350.1.13.10 ity of [facility] 4.2.7.2.686 [place] [facility] [phone] [address] 2019-08-19 2019-08-19 RefNancy Edwards 1.2.840.114 [id number] Univers 00:00:00 00:00:00 Lola Figueroa 350.1.13.10 it y of Hospital 4.2.7.2.686 Juan J as [id number] [place] 591630 Branch 2019-08-16 2019-08-16 Nancy Barnes 1.2.840.114 [id number] Univers 00:00:00 00:00:00 Lola Figueroa 350.1.13.10 it y of [facility] 4.2.7.2.686 Juan J as [phone] [place] 5916[address] Branch 2019-08-15 2019-08-15 Emergency [facility] 1.2.840.114 [id number] Univers 11:58:21 15:28:00 Pietro Zamora 350.1.13.10 i ty of [place].2.[place] [phone] [place] [address] 2019-08-15 2019-08-15 Emergency X [facility] ERT [id number] Univers 11:58:21 15:28:00 SHINTA ity [facility] 2019-08-15 2019-08-15 Case TATO Castillo 1.2.840.114 [id number] Univers 00:00:00 00:00:00 Management Ninfa FIGUEROA 350.1.13.10 ity of [facility] 4.2.7.2.686 Juan J as [phone] [facility] [address] 2019-08-15 2019-08-15 Telephone [facility] 1.2.615.362 [id number] Univers 00:00:00 00:00:00 Ninfa Zamora 350.1.13.10 ity of [place] Profess[place] [phone] [facility] [address] [facility] 2019-08-12 2019-08-12 Transition Latrice Ramirez 1.2.840.114 [id number] Univers 00:00:00 00:00:00 of Care Joandaksha Vazquez 350.1.13.10 ity of [place] 4.2.7.2.686 [place] [phone] [facility] [address] 2019-08-06 2019-08-09 Emergency Siva Can [facility] 1.2.840. 114 [id number] Univers 14:06:47 15:19:00 Timur Gerardo 350.1.13.10 ity of [place] 4.2.7.2.686 [place] [facility] [id number] [facility] 0[address] 2019-08-06 2019-08-09 Outpatient X HUMAIRA [facility] DARIUS [id number] Univers 14:06:47 15:19:00 TIMUR ity [facility] 2019-08-06 2019-08-06 Outpatient R TRAVIS, [facility] [id number] Univers 13:30:00 13:30:00 RICHMOND franciscovashti o [facility] 2019-08-06 2019-08-06 Outpatient R [facility] [id number] -[id number] Univers 11:00:00 11:00:00 [id number] ity [facility] 2019-08-06 2019-08-06 Outpatient R TRAVIS, [facility] [id number] Univers 11:00:00 11:00:00 RICHMOND amauri o [facility] 2019-08-06 2019-08-06 Outpatient R TRAVIS, [facility] [id number] Univers 11:00:00 11:00:00 RICHMOND baugh o [facility] 2019-08-06 2019-08-06 Orders Doctor GARCIA 1..840.114 [id number] Univers 00:00:00 00:00:00 Only Unassigned, CRISTINA 350.1.13.10 ity of [place] [facility] 4.2.7.2.686 Juan J [id number] [facility] [address] 2019-07-19 2019-07-19 Transition Manolo Claudettetanya 1.2.840.114 [id number] Univers 00:00:00 00:00:00 of Care Gilda Vazquez 350.1.13.10 it y of [place] 4.2.7.2.686 [place] [phone] [facility] [address] 2019-07-17 2019-07-18 Emergency Rosemary Carrillo 1.2.840 .114 [id number] Univers 21:36:10 21:05:00 Kendra Vaca 350.1.13.1 0 ity of [facility] 4.2.7.2.686 Juan J as [phone] [address] 2019-07-17 2019-07-18 Outpatient X KENDRA VACA [facility] [id number] Univers 21:36:10 21:05:00 KENDRA VACA ity [facility] 2019-07-03 2019-07-03 Transition Latrice French 1.2.840.114 [id number] Univers 00:00:00 00:00:00 of Care Gilda Vazquez 350.1.13.10 it y of [place].2.[place] [phone] [address] 2019-07-01 2019-07-01 Transition Latrice French 1.2.840.114 [id number] Univers 00:00:00 00:00:00 of Care Gilda Vazquez 350.1.13.10 it y of [place] [phone] [address] 2019-06-27 2019-06-27 Transition Latrice French 1.2.840.114 [id number] Univers 00:00:00 00:00:00 of Care Gilda Vazquez 350.1.13.10 it y of [place].2.[place] [phone] [address] 2019-06-24 2019-06-26 Inpatient X ROBER [facility] [id number] Univers 14:51:01 18:37:00 JEFFRY ity [facility] 2019-06-24 2019-06-26 Hospital Janeth Goodson 1.2.84 0.114 [id number] Univers 14:51:01 18:37:00 Encounter Jeffry Shirley 350.1.1 3.10 ity of [facility] 4.2.7.2.686 Juan J as [phone] [address] 2019-02-06 2019-02-06 Telephone TATO Bhatt 1.2.840.114 [id number] Univers 00:00:00 00:00:00 Barr CRISTINA 350.1.13.10 i ty of [facility] 4.2.7.2.686 Juan J as [phone] [facility] [address] 2019-02-05 2019-02-05 Emergency [facility] 1.2.387.888 [id number] Univers 17:30:29 21:52:00 Antonia Zamora 350.1.13.10 i ty of [place] 4[place]2.[place].2.[place] [phone] [facility] [address] 2019-01-30 2019-01-30 Transition Latrice Quevedo 1.2.840.114 [id number] Univers 00:00:00 00:00:00 of Care Rhonda Vazquez 350.1.13.10 it y of [place] 4.2.7.2.686 [place] [id number] [facility] [address] 2019-01-24 2019-01-29 [facility] Siva Can 1.2.840.1 14 [id number] Univers 16:01:37 14:55:00 Encounter Dennis Finley 350.1.13.10 ity of [facility] 4.2.7.2.686 Juan J as [phone] [place] 1757[address] 2019-01-22 2019-01-22 Transition Latrice Quevedo 1.2.840.114 [id number] Univers 00:00:00 00:00:00 of Care Rhonda Vazquez 350.1.13.10 it y of [place] 4[place].2.[place] [phone] [facility] [address] 2019-01-16 2019-01-19 [facility] Shekhar Allen 1.2.840.11 [id number] Univers 23:52:03 14:36:00 Encounter Martha Rowe 350.1.13.10 ity of [place] [facility] p[facility] 4.2.7.2.686 [place] [id number] [place] 17[address] 2017-10-23 2017-10-27 Discharged 1 [facility]OOKE [facility] [id number] 17:29:00 16:54:00 Inpatient ALEXIS 90 Luke s - Patient s [facility] 2017-04-03 2017-04-04 Departed ER TAVON, [facility] [id number] 23:17:00 03:53:00 Emergency LAIRD 56 Luke s - Room Patient s [facility] 2017-03-05 2017-03-09 Discharged ER PHILIP, [facility] [id number] 06:54:00 10:58:00 Inpatient NICHELLE 44 [place] s - (obs) Patient s [facility] 2017-01-04 2017-01-05 Discharged [facility] [id number] 10:33:00 18:56:00 Inpatient 61 [place] s - (obs) Patient [facility] Orders Doctor TATO 1.2.840.114 [id number] Univers 00:00:00 00:00:00 Only Unassigned, CRISTINA 350.1.13.10 ity of [place] [facility] 4.2.7.2.686 Juan J as [phone] [address] Results Test Description Test Time Test Comments Results Result Comments Source POCT GLUCOSE (AUTOMATED) 2021-01-04 21:40:06 Test Item Value Reference Range Interpretation Comme nts POCT GLU (test code = 0636025640) 102 mg/dL 70-110 Lab Interpretation (test code = 08870-4) Normal [facility] GLUCOSE (AUTOMATED)2021-01-04 18:07:54 Test Item Value Reference Range Interpretation Comments POCT GLU (test code = 9242093422) 107 mg/dL 70-110 Lab Interpretation (test code = Normal 55056-2) [facility] GLUCOSE (AUTOMATED)2021-01-04 17:23:15 Test Item Value Reference Range Interpretation Comments POCT GLU (test code = 1304990257) 77 mg/dL 70-110 Lab Interpretation (test code = Normal 73072-9) [facility] GLUCOSE (AUTOMATED)2021-01-04 12:54:12 Test Item Value Reference Range Interpretation Comments POCT GLU (test code = 2513618236) 79 mg/dL 70-110 Lab Interpretation (test code = Normal 92367-7) [facility] [id number] 12:48:07 Test Item Value Reference Range Interpretation Comments PH (test code = 7.32-7.42 4202859091) PCO2 JEANMARIE (test code = See_Comment [Auto mated message] 8787850013) The system [employer] generated this result transmitted ref erence range: 41 - 51 mmHg. The reference r batsheva was not used to interpret this result as normal/abnor mal. PO2 JEANMARIE (test code = See_Comment L [Autom ated message] 1175037428) The system [employer] generated this result transmitted ref erence range: 25 - 40 mmHg. The reference r batsheva was not used to interpret this result as normal/abnor mal. HCO3 JEANMARIE (test code = See_Comment [Auto mated message] 3569153855) The system [employer] generated this result transmitted ref erence range: 24 - 28 mEq/L. The reference r batsheva was not used to interpret this result as normal/abnor mal. AC VBE(BEAKER) (test mEq/L code = 7731664016) Lab Interpretation (test Abnormal code = 19870-2) [facility] [id number] 11:40:16 Test Item Value Reference Range Interpretation Comments NT-proBNP (test code 2270 pg/mL See_Comment H [Autom ated = 4068111828) message] The system which generated this result transmitted reference range : <=125. The reference range was not used to interpret this result as normal/abnormal . DIANE (test code = DIANE) Biotin has been reported to cause a negative bias, interpret results relative to patient's use of biotin. Lab Interpretation Abnormal (test code = 83901-3) [facility] MET[facility]OLIC PANEL (10295)2021-01-04 11:32:56 Test Item Value Reference Range Interpretation Comments NA (test code = 133 mmol/L 135-145 L 5895367233) K (test code = 4.0 mmol/L 3.5-5.0 3012770106) CL (test code = 104 mmol/L 98-108 2934840277) CO2 TOTAL (test code = 23 mmol/L 23-31 0808200078) AGAP (test code = 2-16 5224500203) BUN (test code = 16 mg/dL 7-23 6779994799) GLUCOSE (test code = 90 mg/dL 70-110 3148034037) CREATININE (test code = 1.03 mg/dL 0.60-1.25 8620637774) TOTAL BILI (test code = 0.7 mg/dL 0.1-1.1 4281658535) CALCIUM (test code = 7.8 mg/dL 8.6-10.6 L 8791279733) T PROTEIN (test code = 6.5 g/dL 6.3-8.2 8951634845) ALBUMIN (test code = 3.2 g/dL 3.5-5.0 L 3956015623) ALK PHOS (test code = 181 U/L 34-122 H 7367352474) ALTv (test code = 17 U/L 5-50 2-6) AST(SGOT) (test code = 38 U/L 13-40 5405953839) eGFR (test code = mL/min/1.73m2 2639098827) DIANE (test code = DIANE) Association of [...] tests). Lab Interpretation Abnormal (test code = 79930-7) [facility] WITH [id number] 11:18:32 Test Item Value Reference Range Interpretation [...] (test code = 52.9 fL 38.5-51.6 H 13036-4) RDW-CV (test code = 16.2 % 12.1-15.4 H 788-0) PLT (test code = See_Comment [Automated 777-3) message] The sy stem which generated this result transmitted reference range : 150 - 328 10*3/ ?L. The reference r batsheva was not used to interpret this result as normal/abnormal . MPV (test code = 10.3 fL 9.8-13.0 50980-4) NRBC/100 WBC (test See_Comment [Automat ed code = 2819121337) message] The system which generated this result transmitted reference range : 0.0 - 10.0 /100 WBCs. The refer ence range was not u sed to interpret th is result as normal/abnormal . NRBC x10^3 (test code <0.01 See_Comment [Auto mated = 1645936752) message] The s ystem which generated this result transmitted reference range : 10*3/?L. The reference range was not used to interpret this result as normal/abnormal . GRAN MAT (NEUT) % 56.8 % (test code = 770-8) IMM GRAN % (test code 0.30 % = 2279634684) LYMPH % (test code = 22.3 % 736-9) MONO % (test code = 14.4 % 5905-5) EOS % (test code = 5.9 % 713-8) BASO % (test code = 0.3 % 706-2) GRAN MAT x10^3(ANC) 2.01 10*3/uL 1.99-6.95 (test code = 6430966624) IMM GRAN x10^3 (test <0.03 0.00-0.06 code = 6733317159) LYMPH x10^3 (test code 0.79 10*3/uL 1.09-3.23 L = 731-0) MONO x10^3 (test code 0.51 10*3/uL 0.36-1.02 = 742-7) EOS x10^3 (test code = 0.21 10*3/uL 0.06-0.53 711-2) BASO x10^3 (test code <0.03 0.01-0.09 = 704-7) Lab Interpretation Abnormal (test code = 64513-8) [facility] GLUCOSE (AUTOMATED)2021-01-04 10:23:25 Test Item Value Reference Range Interpretation Comments POCT GLU (test code = [id number]) 151 mg/dL 70-110 H Lab Interpretation (test code = Abnormal 48343-4) [facility] GLUCOSE (AUTOMATED)2021-01-04 04:33:27 Test Item Value Reference Range Interpretation Comments POCT GLU (test code = [id number]) 79 mg/dL 70-110 Lab Interpretation (test code = Normal 05740-4) [facility] GLUCOSE (AUTOMATED)2021-01-04 04:33:27 Test Item Value Reference Range Interpretation Comments POCT GLU (test code = [id number]) 75 mg/dL 70-110 Lab Interpretation (test code = Normal 03970-3) [facility] [id number] 23:22:20COVID DMT InterpretationInterpretation/Recommendations:Molecular NAAT Tests for Active [...] COVID-19 testing the patient has had at [facility], includingmolecular NAAT testing (more commonly known as PCR testing and Rapid ID Now testing) and antibody testing. It does not take into account any testing that a patient has had outside of the [facility] medical record. [facility] LABORATORY SERVICESCOVID OpiefscBOLP-DpD-8 Rapid ID NOW (no units) ? ? [...] ? ? ? 09/17/2019 ? Not Detected? [facility] LABORATORY SERVICES [facility] GLUCOSE (AUTOMATED)2021-01-03 22:11:23 Test Item Value Reference Range Interpretation Comments POCT GLU (test code = 2395696046) 79 mg/dL 70-110 Lab Interpretation (test code = Normal 89230-7) [facility] GLUCOSE (AUTOMATED)2021-01-03 16:59:27 Test Item Value Reference Range Interpretation Comments POCT GLU (test code = 3318774046) 115 mg/dL 70-110 H Lab Interpretation (test code = Abnormal 20751-3) [facility] GLUCOSE (AUTOMATED)2021-01-03 12:38:13 Test Item Value Reference Range Interpretation Comments POCT GLU (test code = 1632085650) 65 mg/dL 70-110 L Lab Interpretation (test code = Abnormal 70444-3) [facility] [id number] 09:15:10 Test Item Value Reference Range Interpretation Comments NT-proBNP (test code 3650 pg/mL See_Comment H [Autom ated = 5262986623) message] The system which generated this result transmitted reference range : <=125. The reference range was not used to interpret this result as normal/abnormal . DIANE (test code = DIANE) Biotin has been reported to cause a negative bias, interpret results relative to patient's use of biotin. Lab Interpretation Abnormal (test code = 61436-0) [facility] METABOLIC PANEL (70231)2021-01-03 09:06:29 Test Item Value Reference Range Interpretation Comments NA (test code = 138 mmol/L 135-145 9955887678) K (test code = 3.6 mmol/L 3.5-5.0 7543062804) CL (test code = 106 mmol/L 98-108 0367060269) CO2 TOTAL (test code = 28 mmol/L 23-31 1566360139) AGAP (test code = 2-16 9064218540) BUN (test code = 13 mg/dL 7-23 0477955729) GLUCOSE (test code = 97 mg/dL 70-110 9596801411) CREATININE (test code = 0.81 mg/dL 0.60-1.25 7672995520) TOTAL BILI (test code = 0.7 mg/dL 0.1-1.3 9274420623) CALCIUM (test code = 8.3 mg/dL 8.6-10.6 L 9933697094) T PROTEIN (test code = 6.3 g/dL 6.3-8.2 5585032948) ALBUMIN (test code = 3.1 g/dL 3.5-5.0 L 4561906605) ALK PHOS (test code = 206 U/L 34-122 H 2248025156) ALTv (test code = 22 U/L 5-50 1742-6) AST(SGOT) (test code = 30 U/L 13-40 9271962054) eGFR (test code = mL/min/1.73m2 9277998757) DIANE (test code = DIANE) Association of [...] tests). Lab Interpretation Abnormal (test code = 78174-8) [facility] GLUCOSE (AUTOMATED)2021-01-03 02:57:41 Test Item Value Reference Range Interpretation Comments POCT GLU (test code = 1729462894) 103 mg/dL 70-110 Lab Interpretation (test code = Normal 13359-5) [facility] GLUCOSE (AUTOMATED)2021-01-02 21:53:05 Test Item Value Reference Range Interpretation Comments POCT GLU (test code = 5639429923) 122 mg/dL 70-110 H Lab Interpretation (test code = Abnormal 08284-6) [facility] GLUCOSE (AUTOMATED)2021-01-02 16:56:11 Test Item Value Reference Range Interpretation Comments POCT GLU (test code = 5158769726) 153 mg/dL 70-110 H Lab Interpretation (test code = Abnormal 82486-5) [id number] 16:27:16 Test Item Value Reference Interpretation Comments Range TROPONIN I (test 0.012 ng/mL See_Comment [Automated code = 3500868560) message] The system which generated this result [...] biotin. Lab Interpretation Normal (test code = 54294-0) [facility] 1 [id number] 14:45:43Impression: 1. Stable diffuse interstitial opacities, likely [...] Bilateral pleural effusions, unchanged.RL: 2824[facility] 2021-01-02 12:53:51 Test Item Value Reference Range Interpretation Comments POCT GLU (test code = 2348939273) 150 mg/dL 70-110 H Lab Interpretation (test code = Abnormal 13560-3) [facility] GLUCOSE (AUTOMATED)2021-01-02 11:40:40 Test Item Value Reference Range Interpretation Comments POCT GLU (test code = 6441751239) 103 mg/dL 70-110 Lab Interpretation (test code = Normal 14145-4) [id number] 09:31:29 Test Item Value Reference Interpretation Comments Range TROPONIN I (test 0.028 ng/mL See_Comment [Automated code = 3813342820) message] The system which generated this result [...] biotin. Lab Interpretation Normal (test code = 53660-4) [facility] [id number] 09:31:09 Test Item Value Reference Interpretation Comments Range TROPONIN I (test 0.029 ng/mL See_Comment [Automated code = 1213487284) message] The system which generated this result [...] biotin. Lab Interpretation Normal (test code = 72915-3) [facility] [id number] 09:27:51 Test Item Value Reference Range Interpretation Comments NT-proBNP (test code 6170 pg/mL See_Comment H [Autom ated = 2894442260) message] The system which generated this result transmitted reference range : <=125. The reference range was not used to interpret this result as normal/abnormal . DIANE (test code = DIANE) Biotin has been reported to cause a negative bias, interpret results relative to patient's use of biotin. Lab Interpretation Abnormal (test code = 72672-1) [facility]. METABOLIC PANEL (98087)2021-01-02 09:23:11 Test Item Value Reference Range Interpretation Comments NA (test code = 138 mmol/L 135-145 4319752733) K (test code = 3.8 mmol/L 3.5-5.0 3403506563) CL (test code = 108 mmol/L 98-108 6565728825) CO2 TOTAL (test code = 25 mmol/L 23-31 5909996859) AGAP (test code = 2-16 1052527252) BUN (test code = 11 mg/dL 7-23 0818596486) GLUCOSE (test code = 130 mg/dL 70-110 H 9491018812) CREATININE (test code = 0.67 mg/dL 0.60-1.25 4137649715) TOTAL BILI (test code = 1.0 mg/dL 0.1-1.8 6274961076) CALCIUM (test code = 8.6 mg/dL 8.6-10.6 6948415538) T PROTEIN (test code = 6.3 g/dL 6.3-8.2 9170979797) ALBUMIN (test code = 2.9 g/dL 3.5-5.0 L 0994337804) ALK PHOS (test code = 244 U/L 34-122 H 1504138856) ALTv (test code = 21 U/L 5-50 1742-6) AST(SGOT) (test code = 57 U/L 13-40 H 8487543018) eGFR (test code = mL/min/1.73m2 7642727424) DIANE (test code = DIANE) Association of [...] tests). Lab Interpretation Abnormal (test code = 15422-1) [facility]2021-08-14 09:23:11 Test Item Value Reference Range Interpretation Comments MAGNESIUM (test code = 2921666372) 1.6 mg/dL 1.7-2.4 L Lab Interpretation (test code = Abnormal 79407-4) [facility] TexasPHOSPHORUS2021-08-14 09:22:51 Test Item Value Reference Range Interpretation Comments PHOSPHORUS (test code = 9433024613) 4.8 mg/dL 2.5-5.0 Lab Interpretation (test code = Normal 27254-3) [facility] VEN[facility] BLOOD [id number] 09:10:17 Test Item Value Reference Range Interpretation Comments PH (test code = 7.32-7.42 7170155662) PCO2 JEANMARIE (test code = See_Comment [Auto mated message] 7390968143) The system Skill[employer] generated this result transmitted ref erence range: 41 - 51 mmHg. The reference r batsheva was not used to interpret this result as normal/abnor mal. PO2 JEANMARIE (test code = See_Comment HH [Autom ated message] 5673664101) The system [employer] generated this result transmitted ref erence range: 25 - 40 mmHg. The reference r batsheva was not used to interpret this result as normal/abnor mal. HCO3 JEANMARIE (test code = See_Comment L [Auto mated message] 8481298888) The system [employer] generated this result transmitted ref erence range: 24 - 28 mEq/L. The reference r batsheva was not used to interpret this result as normal/abnor mal. AC VBE(BEAKER) (test mEq/L code = 7779185093) Lab Interpretation (test Abnormal code = 15077-1) [facility] TexasCBC WITH [id number] 09:01:07 Test Item Value Reference Range Interpretation [...] RDW-SD (test code = 49.2 fL 38.5-51.6 74379-8) RDW-CV (test code = 15.9 % 12.1-15.4 H 788-0) PLT (test code = See_Comment [Automated 777-3) message] The sy stem which generated this result transmitted reference range : 150 - 328 10*3/ ?L. The reference r batsheva was not used to interpret this result as normal/abnormal . MPV (test code = 9.5 fL 9.8-13.0 L 99323-2) NRBC/100 WBC (test See_Comment [Automat ed code = 7336569629) message] The system which generated this result transmitted reference range : 0.0 - 10.0 /100 WBCs. The refer ence range was not u sed to interpret th is result as normal/abnormal . NRBC x10^3 (test code <0.01 See_Comment [Auto mated = 1034337771) message] The s ystem which generated this result transmitted reference range : 10*3/?L. The reference range was not used to interpret this result as normal/abnormal . GRAN MAT (NEUT) % 65.8 % (test code = 770-8) IMM GRAN % (test code 0.40 % = 4564739813) LYMPH % (test code = 21.0 % 736-9) MONO % (test code = 9.0 % 5905-5) EOS % (test code = 3.4 % 713-8) BASO % (test code = 0.4 % 706-2) GRAN MAT x10^3(ANC) 3.44 10*3/uL 1.99-6.95 (test code = 1334849051) IMM GRAN x10^3 (test <0.03 0.00-0.06 code = 2055656841) LYMPH x10^3 (test code 1.10 10*3/uL 1.09-3.23 = 731-0) MONO x10^3 (test code 0.47 10*3/uL 0.36-1.02 = 742-7) EOS x10^3 (test code = 0.18 10*3/uL 0.06-0.53 711-2) BASO x10^3 (test code <0.03 0.01-0.09 = 704-7) Lab Interpretation Abnormal (test code = 96182-8) [facility]VIT[facility] D, [id number] 08:52:33 Test Item Value Reference Range Interpretation Comments VIT D 25OH (test code = <13 25-80 L 16090-8) DIANE (test code = DIANE) Deficiency: <20 ng/mLInsufficiency: 20-24 ng/mLOptimal: 25-80 ng/mL Lab Interpretation (test Abnormal code = 72638-2) [facility] B12, [id number] 07:27:40 Test Item Value Reference Range Interpretation Comments VIT B12 (test code = 275 pg/mL 240-930 8690432078) DIANE (test code = DIANE) Biotin has been reported to cause a positive bias, interpret results relative to patient's use of biotin. Lab Interpretation (test Normal code = 74508-6) [facility] TexasTROPONIN [id number] 02:35:43 Test Item Value Reference Interpretation Comments Range TROPONIN I (test 0.023 ng/mL See_Comment [Automated code = 8855159769) message] The system which generated this result [...] biotin. Lab Interpretation Normal (test code = 81210-3) [facility] TexasTHYROID STIMULATING [id number] 02:10:37 Test Item Value Reference Range Interpretation Comments TSH (test code = See_Comment [Automated message] 0607082071) The system [employer] generated this result transmitted ref erence range: 0.45 - 4 .70 mIU/L. The refe rence range was not u sed to interpret this result as normal/abnor mal. Lab Interpretation (test Normal code = 85906-7) [facility] TexasGLYCOSYLATED HEMOGLOBIN (A1C)2021-01-02 01:44:50 Test Item Value Reference Range Interpretation Comments HGB A1C (test code = 7.1 % 4.0-5.7 H 4548-4) DIANE (test code = DIANE) Reference RangesNormal: <5.7%Prediabetes: 5.7 - 6.4%Diabetes: > 6.5% Lab Interpretation (test Abnormal code = 23155-4) [facility] TexasLIPID PANEL (44021)(TOTAL CHOLESTEROL, TRIGLYCERIDES, HDL)2021-01-02 01:40:33 Test Item Value Reference Range Interpretation Comments CHOL (test code = 192 mg/dL 120-200 8130630949) HDL (test code = 32 mg/dL >40 L 4334417144) HDLC RATIO (test code = See_Comment H [Au tomated message] 0597161639) The system Sk[employer] generated this result transmit ludmila reference range : <=5.0. The refe rence range was not u sed to interpret th is result as normal/abnormal . TRIG (test code = 114 mg/dL 30-170 4328028796) LDL CHOL (test code = 137 mg/dL See_Comment [Auto mated message] 40533-3) The system [employer] generated this result transmit ludmila reference range : <=160. The refe rence range was not u sed to interpret th is result as normal/abnormal . VLDL (test code = 23 mg/dL 5-60 2836504190) Lab Interpretation (test Abnormal code = 90257-2) [facility]2021-08-14 01:40:17 Test Item Value Reference Range Interpretation Comments MAGNESIUM (test code = 0789656526) 1.8 mg/dL 1.7-2.4 Lab Interpretation (test code = Normal 58641-6) [facility]PHOS[facility]ORUS2021-08-14 01:39:56 Test Item Value Reference Range Interpretation Comments PHOSPHORUS (test code = 7667633633) 4.2 mg/dL 2.5-5.0 Lab Interpretation (test code = Normal 11251-2) [facility] TexasURIC [id number] 01:39:36 Test Item Value Reference Range Interpretation Comments URIC ACID (test code = 2035327191) 7.3 mg/dL 3.6-8.0 Lab Interpretation (test code = Normal 93362-2) [facility] TexasCT CHEST PULMONARY [id number] 22:26:28Impression: Evaluation for pulmonary embolism is somewhat [...] prior median sternotomy. Advanced coronary arterycalcifications.RL: [facility] [id number] 21:11:53Edema type pattern. Increasing small effusions. RL: 6200 RING PHYSICIAN:SIVA CAN CLINICAL HISTORY:chest pain COMPARISON:09/26/2020 TECHNIQUE:Portable Chest performed at 01/01/2021 2:30 PM. Technical Quality: Adequate FINDINGS:Median s ternotomy wires. Bilateral effusions. There is interstitialthickening as well as prominence and indistinctness of the pulmonaryvasculature consistent with interstitial pulmonary edema. No pneumothorax.Heart and mediastinal structures are unchanged. [facility], Radiant Results Inft User - 01/01/2021 4:12 PM CDT ORDERING PHYSICIAN:SIVA CANCLINICAL HISTORY:chest pain COMPARISON:09/26/2020TECHNIQUE:Portable Chest performed at 01/01/2021 2:30 PM. Technical Quality: AdequateFINDINGS:Median sternotomy wires. Bilateral effusions. There is interstitialthickening as well as prominence and indistinctness of the pulmonaryvasculature consistent with interstitial pulmonary edema. No pneumothorax. Heart and mediastinal structures are unchanged.IMPRESSIONEdema type pattern. Increasing small effusions.RL: 6200 [facility].2021-01-01 20:42:09 Test Item Value Reference Range Interpretation Comments PH (test code = 2) 7.35-7.45 H PCO2 (test code = See_Comment L [Automat ed message] 9473272693) The system [employer] generated this result transmitted ref erence range: 35 - 45 mmHg. The reference r batsheva was not used to interpret this result as normal/abnor mal. PO2 (test code = See_Comment [Automated message] 3464415181) The system [employer] generated this result transmitted ref erence range: 80 - 100 mmHg. The reference r batsheva was not used to interpret this result as normal/abnor mal. HCO3 (test code = See_Comment L [Automate d message] 1104578334) The system [employer] generated this result transmitted ref erence range: 22 - 26 mEq/L. The reference r batsheva was not used to interpret this result as normal/abnor mal. BE (test code = See_Comment [Automated message] 5887698925) The system [employer] generated this result transmitted ref erence range: -3.0 - 3 .0 mEq/L. The refe rence range was not u sed to interpret this result as normal/abnor mal. Lab Interpretation (test Abnormal code = 33021-1) [facility] TexasTROPONIN [id number] 20:22:59 Test Item Value Reference Interpretation Comments Range TROPONIN I (test 0.018 ng/mL See_Comment [Automated code = 6567565268) message] The system which generated this result [...] biotin. Lab Interpretation Normal (test code = 81276-6) [facility] TexasN-[facility]MINAL [id number] 20:19:41 Test Item Value Reference Range Interpretation Comments NT-proBNP (test code 5610 pg/mL See_Comment H [Autom ated = 6435167611) message] The system which generated this result transmitted reference range : <=125. The reference range was not used to interpret this result as normal/abnormal . DIANE (test code = DIANE) Biotin has been reported to cause a negative bias, interpret results relative to patient's use of biotin. Lab Interpretation Abnormal (test code = 70519-5) [facility] TexasACTIVATED PARTIAL THRMPLAS [id number] 20:14:36 Test Item Value Reference Range Interpretation Comments APTT Patient (test See_Comment [Automat ed code = 3173-2) message] The system which generated this result transmitted reference range : 23 - 38 Seconds . The reference range was not used to interpr et this result as normal/abnormal . DIANE (test code = DIANE) The [facility] patient population mean normal value for aPTT is 30 seconds. Lab Interpretation Normal (test code = 59610-4) [facility] TexasPROTHROMBIN TIME / [id number] 20:12:39 Test Item Value Reference Range Interpretation [...] tions. Lab Interpretation (test Normal code = 53044-8) [facility] TexasCOMP. METABOLIC PANEL (26168)2021-01-01 20:10:58 Test Item Value Reference Range Interpretation Comments NA (test code = 140 mmol/L 135-145 8216778279) K (test code = 3.9 mmol/L 3.5-5.0 1176428229) CL (test code = 110 mmol/L 98-108 H 0144651245) CO2 TOTAL (test code = 22 mmol/L 23-31 L 2039485488) AGAP (test code = 2-16 3759206278) BUN (test code = 10 mg/dL 7-23 9685587487) GLUCOSE (test code = 108 mg/dL 70-110 3648413626) CREATININE (test code = 0.62 mg/dL 0.60-1.25 3126045103) TOTAL BILI (test code = 0.8 mg/dL 0.1-1.8 3344694958) CALCIUM (test code = 9.2 mg/dL 8.6-10.6 8326118860) T PROTEIN (test code = 7.4 g/dL 6.3-8.2 4886684964) ALBUMIN (test code = 3.5 g/dL 3.5-5.0 1953884678) ALK PHOS (test code = 178 U/L 34-122 H 6699777501) ALTv (test code = 14 U/L 5-50 1742-6) AST(SGOT) (test code = 21 U/L 13-40 2887308087) eGFR (test code = mL/min/1.73m2 1232586804) DIANE (test code = DIANE) Association of [...] tests). Lab Interpretation Abnormal (test code = 45008-2) [facility]COVID[facility] (ID NOW RAPID TESTING)2021-01-01 20:03:58 Test Item Value Reference Range Interpretation Comments SARS-CoV-2 Rapid ID NOW Not Detected Not Detected (test code = 96838-1) DIANE (test code = DIANE) ID NOW COVID-19 Assay is an isothermal nucleic acid amplification test intended for the qualitative detection of nucleic acid from SARS-CoV-2 viral RNA in nasopharyngeal ([employer]) specimens. It is used under Emergency Use [...] indicated. Lab Interpretation Normal (test code = 60627-7) [facility] WITH [id number] 19:49:17 Test Item Value Reference Range Interpretation Comments WBC (test code = See_Comment [Automated 7869-2) message] The sy stem which generated this result transmitted reference range : 4.20 - 10.70 10*3/?L. The reference range was not used to interpret this result as normal/abnormal . RBC (test code = See_Comment [Automated 152-8) message] The sy stem which generated this [...] RDW-SD (test code = 48.1 fL 38.5-51.6 15869-9) RDW-CV (test code = 15.9 % 12.1-15.4 H 788-0) PLT (test code = See_Comment [Automated 777-3) message] The sy stem which generated this result transmitted reference range : 150 - 328 10*3/ ?L. The reference r batsheva was not used to interpret this result as normal/abnormal . MPV (test code = 9.3 fL 9.8-13.0 L 59580-6) NRBC/100 WBC (test See_Comment [Automat ed code = 1336248390) message] The system which generated this result transmitted reference range : 0.0 - 10.0 /100 WBCs. The refer ence range was not u sed to interpret th is result as normal/abnormal . NRBC x10^3 (test code <0.01 See_Comment [Auto mated = 4124850958) message] The s ystem which generated this result transmitted reference range : 10*3/?L. The reference range was not used to interpret this result as normal/abnormal . GRAN MAT (NEUT) % 65.0 % (test code = 770-8) IMM GRAN % (test code 0.30 % = 5936642618) LYMPH % (test code = 21.7 % 736-9) MONO % (test code = 8.8 % 5905-5) EOS % (test code = 3.6 % 713-8) BASO % (test code = 0.6 % 706-2) GRAN MAT x10^3(ANC) 4.33 10*3/uL 1.99-6.95 (test code = 0764939871) IMM GRAN x10^3 (test <0.03 0.00-0.06 code = 7892571743) LYMPH x10^3 (test code 1.45 10*3/uL 1.09-3.23 = 731-0) MONO x10^3 (test code 0.59 10*3/uL 0.36-1.02 = 742-7) EOS x10^3 (test code = 0.24 10*3/uL 0.06-0.53 711-2) BASO x10^3 (test code 0.04 10*3/uL 0.01-0.09 = 704-7) Lab Interpretation Abnormal (test code = 56603-2) [facility] GLUCOSE (AUTOMATED)2021-01-01 19:46:14 Test Item Value Reference Range Interpretation Comments POCT GLU (test code = 8580740824) 111 mg/dL 70-110 H Lab Interpretation (test code = Abnormal 77814-4) [facility] GLUCOSE (AUTOMATED)2020-12-16 21:18:57 Test Item Value Reference Range Interpretation Comments POCT GLU (test code = 7118028620) 68 mg/dL 70-110 L Lab Interpretation (test code = Abnormal 15696-3) [facility] GLUCOSE (AUTOMATED)2020-12-16 17:06:02 Test Item Value Reference Range Interpretation Comments POCT GLU (test code = 1202467332) 110 mg/dL 70-110 Lab Interpretation (test code = Normal 80723-4) [facility] [id number] 13:47:58 Test Item Value Reference Range Interpretation Comments NT-proBNP (test code 3550 pg/mL See_Comment H [Autom ated = 2972694989) message] The system which generated this result transmitted reference range : <=125. The reference range was not used to interpret this result as normal/abnormal . DIANE (test code = DIANE) Biotin has been reported to cause a negative bias, interpret results relative to patient's use of biotin. Lab Interpretation Abnormal (test code = 42529-2) [facility] GLUCOSE (AUTOMATED)2020-12-16 12:53:54 Test Item Value Reference Range Interpretation Comments POCT GLU (test code = 2643435510) 91 mg/dL 70-110 Lab Interpretation (test code = Normal 07888-4) [facility] (NA, K, CL, CO2, GLUCOSE, BUN, CREATININE, CA)2020-12-16 10:19:49 Test Item Value Reference Range Interpretation Comments NA (test code = 137 mmol/L 135-145 0899495342) K (test code = 3.9 mmol/L 3.5-5.0 9707472010) CL (test code = 107 mmol/L 98-108 7004064395) CO2 TOTAL (test code = 22 mmol/L 23-31 L 1948502638) AGAP (test code = 2-16 0626672588) BUN (test code = 18 mg/dL 7-23 5337530408) GLUCOSE (test code = 89 mg/dL 70-110 2658241427) CREATININE (test code = 0.70 mg/dL 0.60-1.25 6678266695) CALCIUM (test code = 8.7 mg/dL 8.6-10.6 1606813948) eGFR (test code = mL/min/1.73m2 5898824778) DIANE (test code = DIANE) Association of [...] tests). Lab Interpretation Abnormal (test code = 31506-4) [facility] TexasMagnesium [id number] 06:19:17 Test Item Value Reference Range Interpretation Comments MAGNESIUM (test code = 0042675440) 1.7 mg/dL 1.7-2.4 Lab Interpretation (test code = Normal 53440-1) [facility] GLUCOSE (AUTOMATED)2020-12-16 00:45:57 Test Item Value Reference Range Interpretation Comments POCT GLU (test code = 4542902141) 134 mg/dL 70-110 H Lab Interpretation (test code = Abnormal 84474-7) [facility] TexasGLYCOSYLATED HEMOGLOBIN (A1C)2020-12-15 22:14:19 Test Item Value Reference Range Interpretation Comments HGB A1C (test code = 7.0 % 4.0-5.7 H 4548-4) DIANE (test code = DIANE) Reference RangesNormal: <5.7%Prediabetes: 5.7 - 6.4%Diabetes: > 6.5% Lab Interpretation (test Abnormal code = 04731-5) [facility] GLUCOSE (AUTOMATED)2020-12-15 21:43:05 Test Item Value Reference Range Interpretation Comments POCT GLU (test code = 0201801309) 100 mg/dL 70-110 Lab Interpretation (test code = Normal 87034-6) [facility] TexasGlycosylated Hemoglobin (A1C)2020-12-15 20:10:30 Test Item Value Reference Range Interpretation Comments HGB A1C (test code = 7.0 % 4.0-5.7 H 4548-4) DIANE (test code = DIANE) Reference RangesNormal: <5.7%Prediabetes: 5.7 - 6.4%Diabetes: > 6.5% Lab Interpretation (test Abnormal code = 79689-7) [facility] TexasLAB ONLY COVID [id number] 19:24:48COVID DMT InterpretationInterpretation/Recommendations:Molecular NAAT Tests for Active [...] COVID-19 testing the patient has had at [facility], includingmolecular NAAT testing (more commonly known as PCR testing and Rapid ID Now testing) and antibody testing. It does not take into account any testing that a patient has had outside of the [facility] medical record. [facility] LABORATORY SERVICESCOVID GbsobsjOMEE-CrW-7 Rapid ID NOW (no units) ? ? [...] ? ? 09/17/2019 ? Not Detected ? [facility] LABORATORY SERVICESUnFormerly [facility]N-[facility]MINAL PRO-BNP 2020-12-15 18:47:44 Test Item Value Reference Range Interpretation Comments NT-proBNP (test code 4560 pg/mL See_Comment H [Autom ated = 3130488254) message] The system which generated this result transmitted reference range : <=125. The reference range was not used to interpret this result as normal/abnormal . DIANE (test code = DIANE) Biotin has been reported to cause a negative bias, interpret results relative to patient's use of biotin. Lab Interpretation Abnormal (test code = 62408-9) [facility] TexasLIP[facility] PANEL (97965)(TOTAL CHOLESTEROL, TRIGLYCERIDES, HDL)2020-12-15 18:38:58 Test Item Value Reference Range Interpretation Comments CHOL (test code = 188 mg/dL 120-200 4731514594) HDL (test code = 30 mg/dL >40 L 2520690447) HDLC RATIO (test code = See_Comment H [Au tomated message] 9613211949) The system [employer] generated this result transmit ludmila reference range : <=5.0. The refe rence range was not u sed to interpret th is result as normal/abnormal . TRIG (test code = 99 mg/dL 30-170 8151477426) LDL CHOL (test code = 138 mg/dL See_Comment [Auto mated message] 59222-7) The system [employer] generated this result transmit ludmila reference range : <=160. The refe rence range was not u sed to interpret th is result as normal/abnormal . VLDL (test code = 20 mg/dL 5-60 5698866169) Lab Interpretation (test Abnormal code = 20028-7) [facility] GLUCOSE (AUTOMATED)2020-12-15 17:02:24 Test Item Value Reference Range Interpretation Comments POCT GLU (test code = 4003659476) 115 mg/dL 70-110 H Lab Interpretation (test code = Abnormal 39663-6) [facility]XR CHEST 1 [id number] 16:39:09 No radiographic evidence of acute cardiopulmonary [...] tissues appear normal [facility], Radiant Results Inft 12/15/2020 11:40 AM CDTFormatting of this note [...] reviewed this study and agree with theabove report.[facility] GLUCOSE (AUTOMATED)2020-12-15 13:54:13 Test Item Value Reference Range Interpretation Comments POCT GLU (test code = 0801673527) 122 mg/dL 70-110 H Lab Interpretation (test code = Abnormal 93306-9) [facility] TexasTROPONIN [id number] 10:58:44 Test Item Value Reference Interpretation Comments Range TROPONIN I (test 0.028 ng/mL See_Comment [Automated code = 7673756061) message] The system which generated this result [...] biotin. Lab Interpretation Normal (test code = 45853-8) [facility] [id number] 08:49:06 Test Item Value Reference Interpretation Comments Range TROPONIN I (test 0.020 ng/mL See_Comment [Automated code = 2933718288) message] The system which generated this result [...] biotin. Lab Interpretation Normal (test code = 75220-2) [facility] [id number] 02:53:29 Test Item Value Reference Interpretation Comments Range TROPONIN I (test 0.018 ng/mL See_Comment [Automated code = 3535498846) message] The system which generated this result [...] biotin. Lab Interpretation Normal (test code = 07944-3) [facility]OVID[facility] (ID NOW RAPID TESTING)2020-12-15 01:32:25 Test Item Value Reference Range Interpretation Comments SARS-CoV-2 Rapid ID NOW Not Detected Not Detected (test code = 83761-0) DIANE (test code = DIANE) ID NOW COVID-19 Assay is an isothermal nucleic acid amplification test intended for the qualitative detection of nucleic acid from SARS-CoV-2 viral RNA in nasopharyngeal (FLOOR [employer]PERVIS[employer]) specimens. It is used under Emergency Use [...] indicated. Lab Interpretation Normal (test code = 64506-5) [facility] TexasTROPOTENISHAN [id number] 00:05:45 Test Item Value Reference Interpretation Comments Range TROPONIN I (test 0.016 ng/mL See_Comment [Automated code = 1060268102) message] The system which generated this result [...] biotin. Lab Interpretation Normal (test code = 43301-2) [facility] TexasaPTT2021-07-26 23:57:00 Test Item Value Reference Range Interpretation Comments APTT Patient (test See_Comment [Automat ed code = 3173-2) message] The system which generated this result transmitted reference range : 23 - 38 Seconds . The reference range was not used to interpr et this result as normal/abnormal . DIANE (test code = DIANE) The [facility] patient population mean normal value for aPTT is 30 seconds. Lab Interpretation Normal (test code = 79478-4) [facility] TexasPROTHROMBIN TIME / [id number] 23:54:58 Test Item Value Reference Range Interpretation [...] tions. Lab Interpretation (test Abnormal code = 36261-0) [facility] TexasCOMP. METABOLIC PANEL (04493)2020-12-14 23:54:38 Test Item Value Reference Range Interpretation Comments NA (test code = 138 mmol/L 135-145 2937294458) K (test code = 3.8 mmol/L 3.5-5.0 9938651318) CL (test code = 107 mmol/L 98-108 4886971061) CO2 TOTAL (test code = 23 mmol/L 23-31 6586650662) AGAP (test code = 2-16 5894523531) BUN (test code = 15 mg/dL 7-23 9176605745) GLUCOSE (test code = 126 mg/dL 70-110 H 0983368478) CREATININE (test code = 0.70 mg/dL 0.60-1.25 9883344813) TOTAL BILI (test code = 0.7 mg/dL 0.1-1.6 5499414391) CALCIUM (test code = 9.0 mg/dL 8.6-10.6 7182929083) T PROTEIN (test code = 7.1 g/dL 6.3-8.2 9238648317) ALBUMIN (test code = 3.5 g/dL 3.5-5.0 2572087740) ALK PHOS (test code = 110 U/L 34-122 4911102664) ALTv (test code = 12 U/L 5-50 2-6) AST(SGOT) (test code = 22 U/L 13-40 5753227432) eGFR (test code = mL/min/1.73m2 9749901036) DIANE (test code = DIANE) Association of [...] tests). Lab Interpretation Abnormal (test code = 29675-2) [facility] TexasLIPASE, [id number] 23:54:23 Test Item Value Reference Range Interpretation Comments LIPASE (test code = 0351722830) 83 U/L 0-220 Lab Interpretation (test code = Normal 49107-1) [facility] TexasCBC WITH [id number] 23:43:12 Test Item Value Reference Range Interpretation Comments WBC (test code = See_Comment [Automated 5490-2) message] The sy stem which generated this [...] RDW-SD (test code = 49.2 fL 38.5-51.6 48849-4) RDW-CV (test code = 16.0 % 12.1-15.4 H 788-0) PLT (test code = See_Comment [Automated 777-3) message] The sy stem which generated this result transmitted reference range : 150 - 328 10*3/ ?L. The reference r batsheva was not used to interpret this result as normal/abnormal . MPV (test code = 9.7 fL 9.8-13.0 L 87686-6) NRBC/100 WBC (test See_Comment [Automat ed code = 8463067366) message] The system which generated this result transmitted reference range : 0.0 - 10.0 /100 WBCs. The refer ence range was not u sed to interpret th is result as normal/abnormal . NRBC x10^3 (test code <0.01 See_Comment [Auto mated = 7997468220) message] The s ystem which generated this result transmitted reference range : 10*3/?L. The reference range was not used to interpret this result as normal/abnormal . GRAN MAT (NEUT) % 74.8 % (test code = 770-8) IMM GRAN % (test code 0.50 % = 7984027201) LYMPH % (test code = 15.1 % 736-9) MONO % (test code = 7.1 % 5905-5) EOS % (test code = 2.1 % 713-8) BASO % (test code = 0.4 % 706-2) GRAN MAT x10^3(ANC) 6.39 10*3/uL 1.99-6.95 (test code = 4130028707) IMM GRAN x10^3 (test 0.04 10*3/uL 0.00-0.06 code = 4586942841) LYMPH x10^3 (test code 1.29 10*3/uL 1.09-3.23 = 731-0) MONO x10^3 (test code 0.61 10*3/uL 0.36-1.02 = 742-7) EOS x10^3 (test code = 0.18 10*3/uL 0.06-0.53 711-2) BASO x10^3 (test code 0.03 10*3/uL 0.01-0.09 = 704-7) Lab Interpretation Abnormal (test code = 16741-1) [facility]GLU[facility]ED[facility]IDE [id number] 11:52:00 Test Item Value Reference Range Interpretation Comments GLUCOSE BEDSIDE TESTING (test code = 92 mg/dL 70-110 N GLUBED) GLUCOSE BEDSIDE [id number] 08:05:00 Test Item Value Reference Range Interpretation Comments GLUCOSE BEDSIDE TESTING (test code = 62 mg/dL 70-110 L GLUBED) GLUCOSE BEDSIDE [id number] 20:40:00 Test Item Value Reference Range Interpretation Comments GLUCOSE BEDSIDE TESTING (test code 105 mg/dL 70-110 N = GLUBED) GLUCOSE BEDSIDE [id number] 17:02:00 Test Item Value Reference Range Interpretation Comments GLUCOSE BEDSIDE TESTING (test code 128 mg/dL 70-110 H = GLUBED) GLUCOSE BEDSIDE [id number] 16:37:00 Test Item Value Reference Range Interpretation Comments GLUCOSE BEDSIDE TESTING (test code 105 mg/dL 70-110 N = GLUBED) GLUCOSE BEDSIDE [id number] 08:17:00 Test Item Value Reference Range Interpretation Comments GLUCOSE BEDSIDE TESTING (test code = 88 mg/dL 70-110 N GLUBED) GLUCOSE BEDSIDE [id number] 19:45:00 Test Item Value Reference Range Interpretation Comments GLUCOSE BEDSIDE TESTING (test code 115 mg/dL 70-110 H = GLUBED) GLUCOSE BEDSIDE [id number] 18:13:00 Test Item Value Reference Range Interpretation Comments GLUCOSE BEDSIDE TESTING (test code = 74 mg/dL 70-110 N GLUBED) GLUCOSE BEDSIDE [id number] 17:29:00 Test Item Value Reference Range Interpretation Comments GLUCOSE BEDSIDE TESTING (test code = 44 mg/dL 70-110 LL GLUBED) GLUCOSE BEDSIDE [id number] 12:26:00 Test Item Value Reference Range Interpretation Comments GLUCOSE BEDSIDE TESTING (test code = 96 mg/dL 70-110 N GLUBED) GLUCOSE BEDSIDE [id number] 08:21:00 Test Item Value Reference Range Interpretation Comments GLUCOSE BEDSIDE TESTING (test code = 77 mg/dL 70-110 N GLUBED) GLUCOSE BEDSIDE [id number] 20:12:00 Test Item Value Reference Range Interpretation Comments GLUCOSE BEDSIDE TESTING (test code = 91 mg/dL 70-110 N GLUBED) GLUCOSE BEDSIDE [id number] 16:42:00 Test Item Value Reference Range Interpretation Comments GLUCOSE BEDSIDE TESTING (test code 106 mg/dL 70-110 N = GLUBED) GLUCOSE BEDSIDE [id number] 11:49:00 Test Item Value Reference Range Interpretation Comments GLUCOSE BEDSIDE TESTING (test code = 89 mg/dL 70-110 N GLUBED) GLUCOSE BEDSIDE [id number] 08:22:00 Test Item Value Reference Range Interpretation Comments GLUCOSE BEDSIDE TESTING (test code = 68 mg/dL 70-110 L GLUBED) GLUCOSE BEDSIDE [id number] 20:05:00 Test Item Value Reference Range Interpretation Comments GLUCOSE BEDSIDE TESTING (test code 137 mg/dL 70-110 H = GLUBED) GLUCOSE BEDSIDE [id number] 16:42:00 Test Item Value Reference Range Interpretation Comments GLUCOSE BEDSIDE TESTING (test code = 98 mg/dL 70-110 N GLUBED) GLUCOSE BEDSIDE [id number] 11:13:00 Test Item Value Reference Range Interpretation Comments GLUCOSE BEDSIDE TESTING (test code 118 mg/dL 70-110 H = GLUBED) GLUCOSE BEDSIDE [id number] 07:37:00 Test Item Value Reference Range Interpretation Comments GLUCOSE BEDSIDE TESTING (test code 140 mg/dL 70-110 H = GLUBED) COMPREHENSIVE METABOLIC [id number] 06:34:00 Test Item Value Reference Range Interpretation [...] TOTAL (test code = ALKP) CBC W/AUTO [id number] 06:25:00 Test Item Value Reference Range Interpretation [...] DIFF/SCN CRITERIA = MDIFF) - CT ABDOMEN W/[id number] 03:09:00 [facility] : 1960 Sex: M Name: ERNIE VANCE [facility] : 1960 Age/S: 60 / M [address] Unit #: [id number] Loc: [place] [address] Phys: Fede Carrera DO Acct: [id number] Dis Date: Status: ADM IN PHONE #: [phone] Exam Date: 10/31/20201919 FAX #: Reason: NAUSEA, VOMITING, DIARRHEA EXAMS: CPT: [id number] CT ABDOMEN W/CONTRAST 71153 EXAM: - CT ABDOMEN W/CONTRAST LOCATION: H61 CLINICAL HISTORY/INDICATION: NAUSEA, VOMITING, DIARRHEA COMPARISON: KUB [...] 1 Signed Report (CONTINUED) Name: ERNIE VANCE [facility] : 1960 Age/S: 60 / M [address] Unit #: [id number] Loc: [place] [address] Phys: Fede Carrera Acct: [id number] Dis Date: Status: ADM IN PHONE #: [phone] Exam Date: 10/31/20201919 FAX #: Reason: NAUSEA, VOMITING, DIARRHEA EXAMS: CPT: [id number] CT ABDOMEN W/CONTRAST 84657 <Continued> small bowelwall thickening. The appendix is [...] and signed by: Carmen Encarnacion M.D. CC: Nika Martin MD; Fede Carrera DO Technologist:RT Rohan(R) CTDI: DLP: Trnscb Date/Time: 11/01/2020 (308) RubinaR.TH15 Orig Print D/T: S: 11/01/2020 (4690) PAGE 2 Signed ReportGLUCOSE BEDSIDE TESTING 2020-10-31 21:34:00 Test Item Value Reference Range Interpretation Comments GLUCOSE BEDSIDE TESTING (test code 161 mg/dL 70-110 H = GLUBED) GLUCOSE BEDSIDE [id number] 17:32:00 Test Item Value Reference Range Interpretation Comments GLUCOSE BEDSIDE TESTING (test code 136 mg/dL 70-110 H = GLUBED) - XR ABDOMEN 1 [id number] 12:44:00 [facility] : 1960 Sex: M Name: ERNIE VANCE [facility] : 1960 Age/S: 60 / M [address] Unit #: [id number] Loc: [place] [address] Phys: Fede Carrera DO Acct: [id number] Dis Date: Status: ADM IN PHONE #: [phone] Exam Date: 10/31/2020 1227 FAX #: Reason:Abdominal pain in the lower qudarants EXAMS: CPT: [id number] XR ABDOMEN 1 V 05031 Fluoro Time: DAP (Gy m2): Air Kerma [...] and signed by: Ananth Schmidt M.D. CC: Nika Martin MD; Fede Carrera DO PAGE 1 Signed Report Name: ERNIE VANCE [place] : 1960 Age/S: 60 / M [address] Unit #: [id number] Loc: [place] [address] Phys: Fede Carrera DO Acct: [id number] Dis Date: Status: ADM IN PHONE #: [phone] Exam Date: 10/31/2020 1227 FAX #: Reason: Abdominal pain in the lower qudarants EXAMS: CPT: [id number] XR ABDOMEN 1 V 33454 Fluoro Time: DAP (Gy m2): Air Kerma (mGy): <Continued> Technologist: Cecelia Arias RT(R) Trnscb Date/Time: 10/31/2020 (1244) tJAH Orig Print D/T: S: 10/31/2020 (0574) PAGE 2 Signed ReportGLUCOSE BEDSIDE [id number] 11:58:00 Test Item Value Reference Range Interpretation Comments GLUCOSE BEDSIDE TESTING (test code 105 mg/dL 70-110 N = GLUBED) GLUCOSE BEDSIDE [id number] 08:01:00 Test Item Value Reference Range Interpretation Comments GLUCOSE BEDSIDE TESTING (test code 106 mg/dL 70-110 N = GLUBED) [id number] 22:46:00 Test Item Value Reference Range Interpretation [...] yby method. Completed by Nursing: NOGLUCOSE BEDSIDE [id number] 21:55:00 Test Item Value Reference Range Interpretation Comments GLUCOSE BEDSIDE TESTING (test code 119 mg/dL 70-110 H = GLUBED) [id number] 19:33:00 Test Item Value Reference Range Interpretation [...] method. Completed by Nursing: NOCoronavirus 2019 nCoV [id number] 18:46:00 Test Item Value Reference Range Interpretation Comments Coronavirus 2019 nCoV Negative Negative Per arnie [facility], Bedside (test code = negativ e results should [id number]) be treated aspresumptive a nd, if inconsistent [...] with COVID-19. Spec Comments: NNT PRO-BRAIN NATRIURETIC [id number] 15:51:00 Test Item Value Reference Range Interpretation Comments NT PRO-BRAIN NATRIURETIC PEPTI 6079 PG/ML 0-100 H (test code = PROBNP) Completed by Nursing: [id number] 15:51:00 Test Item Value Reference Range Interpretation [...] yby method. Completed by Nursing: NOBASIC METABOLIC [id number] 15:51:00 Test Item Value Reference Range Interpretation [...] Completed by Nursing: NO- XR CHEST 1 [id number] 15:42:00 [facility] : 1960 Sex: M Name: ERNIE VANCE [place] : 1960 Age/S: 60 / M [address] [facility] Unit #: [id number] Loc: [place] [address] Phys: Todd Jacobo MD Acct: [id number] Dis Date: Status: PRE ER PHONE #: [phone] Exam Date: 10/30/2020 1524 FAX #: Reason:chest pain EXAMS: CPT: [id number] XR CHEST 1 V 02221 Fluoro Time: DAP (Gy m2): Air Kerma [...] and signed by: Lopez Ruiz M.D. CC: Nika Martin MD; Todd Jacobo MD PAGE 1 Signed Report Name: ERNIE VANCE [place] : 1960ge/S: 60 / M [id number] [place] [address] Unit #: [id number] Loc: [place] [address] Phys: Todd Jacobo MD Acct: [id number] Dis Date: Status: PRE ER PHONE#: [phone] Exam Date: 10/30/2020 1524 FAX #: Reason: chest pain EXAMS: CPT: [id number] XR CHEST 1 V 07877 Fluoro Time: DAP (Gy m2): Air Kerma (mGy): <Continued> Technologist: Kim Andrews RT(R)(CT) Trnscb Date/Time: 10/30/2020 (4973) RubinaR.RB24 Orig Print D/T: S: 10/30/2020 (2690) PAGE 2 [facility] Report[facility] 2020-10-30 15:31:00 Test Item Value [...] H MPV) FL UPPER GI SMALL BOWEL [id number] 17:22:39HISTORY: Nausea and upper abdominal pain. FINDINGS: [...] upper GI series. Normal small bowel series. [facility], Radiant Results Inft User - 10/28/2020 12:23 [...] Normal upper GI series. Normal small bowel series.[facility] URINALYSIS, [id number] 19:33:00 Test Item Value Reference Range Interpretation [...] 3267) Lab Interpretation (test code Abnormal = 36648-0) [facility], [id number] 19:33:00 Test Item Value Reference Range Interpretation [...] 3267) Lab Interpretation (test code Abnormal = 68449-8) [facility] ABDOMEN PELVIS WO [id number] 00:45:42Impression: 1. Anasarca.2. Large bilateral pleural effusions, [...] Colonic diverticulosis, without diverticulitis.RL: 460End of Report [facility] COMP. METABOLIC PANEL (84604)2020-09-28 23:53:53 Test Item Value Reference Range Interpretation Comments NA (test code = 141 mmol/L 135-145 6791906121) K (test code = 4.1 mmol/L 3.5-5.0 6050318265) CL (test code = 106 mmol/L 98-108 3096209629) CO2 TOTAL (test code = 25 mmol/L 23-31 3660490136) AGAP (test code = 2-16 6245912935) BUN (test code = 13 mg/dL 7-23 6278473744) GLUCOSE (test code = 138 mg/dL 70-110 H 9512526656) CREATININE (test code = 0.66 mg/dL 0.60-1.25 4111941192) TOTAL BILI (test code = 0.5 mg/dL 0.1-1.2 9093492528) CALCIUM (test code = 8.7 mg/dL 8.6-10.6 9556790174) T PROTEIN (test code = 7.2 g/dL 6.3-8.2 5319447303) ALBUMIN (test code = 4.0 g/dL 3.5-5.0 7244443782) ALK PHOS (test code = 167 U/L 34-122 H 7979526223) ALTv (test code = 12 U/L 5-50 1742-6) AST(SGOT) (test code = 21 U/L 13-40 9054172463) eGFR (test code = mL/min/1.73m2 0811479668) DIANE (test code = DIANE) Association of [...] tests). Lab Interpretation Abnormal (test code = 65835-5) [facility]2021-[facility]-10 23:53:33 Test Item Value Reference Range Interpretation Comments LIPASE (test code = 3539695765) 198 U/L 0-220 Lab Interpretation (test code = Normal 25120-0) [facility] WITH [id number] 23:43:10 Test Item Value Reference Range Interpretation Comments WBC (test code = See_Comment [Automated 5090-2) message] The sy stem which generated this result transmitted reference range : 4.20 - 10.70 10*3/?L. The reference range was not used to interpret this result as normal/abnormal . RBC (test code = See_Comment L [Automated 219-8) message] The sy stem which generated this [...] (test code = 62.4 fL 38.5-51.6 H 51616-0) RDW-CV (test code = 19.7 % 12.1-15.4 H 788-0) PLT (test code = See_Comment [Automated 777-3) message] The sy stem which generated this result transmitted reference range : 150 - 328 10*3/ ?L. The reference r batsheva was not used to interpret this result as normal/abnormal . MPV (test code = 10.6 fL 9.8-13.0 01873-2) NRBC/100 WBC (test See_Comment [Automat ed code = 2556022008) message] The system which generated this result transmitted reference range : 0.0 - 10.0 /100 WBCs. The refer ence range was not u sed to interpret th is result as normal/abnormal . NRBC x10^3 (test code <0.01 See_Comment [Auto mated = 8037976792) message] The s ystem which generated this result transmitted reference range : 10*3/?L. The reference range was not used to interpret this result as normal/abnormal . GRAN MAT (NEUT) % 63.1 % (test code = 770-8) IMM GRAN % (test code 0.30 % = 6646341311) LYMPH % (test code = 21.7 % 736-9) MONO % (test code = 10.0 % 5905-5) EOS % (test code = 4.2 % 713-8) BASO % (test code = 0.7 % 706-2) GRAN MAT x10^3(ANC) 3.73 10*3/uL 1.99-6.95 (test code = 2461957049) IMM GRAN x10^3 (test <0.03 0.00-0.06 code = 0396873793) LYMPH x10^3 (test code 1.28 10*3/uL 1.09-3.23 = 731-0) MONO x10^3 (test code 0.59 10*3/uL 0.36-1.02 = 742-7) EOS x10^3 (test code = 0.25 10*3/uL 0.06-0.53 711-2) BASO x10^3 (test code 0.04 10*3/uL 0.01-0.09 = 704-7) Lab Interpretation Abnormal (test code = 81464-6) [facility] GLUCOSE (AUTOMATED)2020-09-26 21:48:35 Test Item Value Reference Range Interpretation Comments POCT GLU (test code = 7589633164) 101 mg/dL 70-110 Lab Interpretation (test code = Normal 78538-2) [facility] CHEST 1 [id number] 17:32:37 1. Stable small bilateral pleural effusions [...] effusions, CHF Comparison: CT of the chest 1RL: 4209ORDERING PHYSICIAN: BLAKE FERNANDEZ TECHNIQUE: Single view of the chest.FINDINGS:Left- sided pacemaker is stable. There are small bilateral pleuraleffusions with adjacent atelectasis. Cardiac silhouette is enlarged. Nopneumothorax. Median sternotomy wires are intact.IMPRESSION1. Stable small bilateral pleural effusions with adjacent atelectasis. [facility] 2020-09-26 17:31:11 Test Item Value Reference Range Interpretation Comments POCT GLU (test code = 8209030649) 48 mg/dL 70-110 LL Lab Interpretation (test code = Abnormal 89290-8) [facility] GLUCOSE (AUTOMATED)2020-09-26 17:31:11 Test Item Value Reference Range Interpretation Comments POCT GLU (test code = 9801047503) 162 mg/dL 70-110 H Lab Interpretation (test code = Abnormal 14349-2) [facility] GLUCOSE (AUTOMATED)2020-09-26 16:48:17 Test Item Value Reference Range Interpretation Comments POCT GLU (test code = 9513803863) 259 mg/dL 70-110 H Lab Interpretation (test code = Abnormal 02629-8) [facility] GLUCOSE (AUTOMATED)2020-09-26 13:04:01 Test Item Value Reference Range Interpretation Comments POCT GLU (test code = 5736076522) 137 mg/dL 70-110 H Lab Interpretation (test code = Abnormal 67631-6) [facility]. METABOLIC PANEL (62985)2020-09-26 12:22:51 Test Item Value Reference Range Interpretation Comments NA (test code = 140 mmol/L 135-145 0138186337) K (test code = 3.9 mmol/L 3.5-5.0 8279687092) CL (test code = 104 mmol/L 98-108 2385788725) CO2 TOTAL (test code = 25 mmol/L 23-31 7134310391) AGAP (test code = 2-16 3395129874) BUN (test code = 14 mg/dL 7-23 2786802823) GLUCOSE (test code = 35 mg/dL 70-110 LL 4726068049) CREATININE (test code = 0.88 mg/dL 0.60-1.25 5290220993) TOTAL BILI (test code = 0.7 mg/dL 0.1-1.5 1558620770) CALCIUM (test code = 8.6 mg/dL 8.6-10.6 9323451544) T PROTEIN (test code = 6.9 g/dL 6.3-8.2 4061614415) ALBUMIN (test code = 3.8 g/dL 3.5-5.0 3564560706) ALK PHOS (test code = 178 U/L 34-122 H 5969188037) ALTv (test code = 17 U/L 5-50 1742-6) AST(SGOT) (test code = 28 U/L 13-40 9909301668) eGFR (test code = mL/min/1.73m2 1220651605) DIANE (test code = DIANE) Association of [...] tests). Lab Interpretation Abnormal (test code = 65527-3) [facility] VCD-VHS0669-10-08 12:10:35 Test Item Value Reference Range Interpretation Comments NT-proBNP (test code 3170 pg/mL See_Comment H [Autom ated = 5173727467) message] The system which generated this result transmitted reference range : <=125. The reference range was not used to interpret this result as normal/abnormal . DIANE (test code = DIANE) Biotin has been reported to cause a negative bias, interpret results relative to patient's use of biotin. Lab Interpretation Abnormal (test code = 21592-2) [facility] WITH [id number] 12:02:17 Test Item Value Reference Range Interpretation [...] (test code = 62.7 fL 38.5-51.6 H 19555-1) RDW-CV (test code = 19.9 % 12.1-15.4 H 788-0) PLT (test code = See_Comment [Automated 777-3) message] The sy stem which generated this result transmitted reference range : 150 - 328 10*3/ ?L. The reference r batsheva was not used to interpret this result as normal/abnormal . MPV (test code = 10.3 fL 9.8-13.0 53497-1) NRBC/100 WBC (test See_Comment [Automat ed code = 8934310758) message] The system which generated this result transmitted reference range : 0.0 - 10.0 /100 WBCs. The refer ence range was not u sed to interpret th is result as normal/abnormal . NRBC x10^3 (test code <0.01 See_Comment [Auto mated = 9987619669) message] The s ystem which generated this result transmitted reference range : 10*3/?L. The reference range was not used to interpret this result as normal/abnormal . GRAN MAT (NEUT) % 46.0 % (test code = 770-8) IMM GRAN % (test code 0.80 % = 9008978582) LYMPH % (test code = 33.8 % 736-9) MONO % (test code = 13.0 % 5905-5) EOS % (test code = 5.6 % 713-8) BASO % (test code = 0.8 % 706-2) GRAN MAT x10^3(ANC) 2.45 10*3/uL 1.99-6.95 (test code = 5890778531) IMM GRAN x10^3 (test 0.04 10*3/uL 0.00-0.06 code = 1845532262) LYMPH x10^3 (test code 1.80 10*3/uL 1.09-3.23 = 731-0) MONO x10^3 (test code 0.69 10*3/uL 0.36-1.02 = 742-7) EOS x10^3 (test code = 0.30 10*3/uL 0.06-0.53 711-2) BASO x10^3 (test code 0.04 10*3/uL 0.01-0.09 = 704-7) Lab Interpretation Abnormal (test code = 09495-5) [facility] GLUCOSE (AUTOMATED)2020-09-25 21:57:56 Test Item Value Reference Range Interpretation Comments POCT GLU (test code = 3535577194) 73 mg/dL 70-110 Lab Interpretation (test code = Normal 22755-4) [facility] [id number] 17:21:04 Test Item Value Reference Range Interpretation Comments Occult (guaiac) Blood (test code = Negative Negative 2335-8) Lab Interpretation (test code = Normal 48257-3) [facility] GLUCOSE (AUTOMATED)2020-09-25 17:04:59 Test Item Value Reference Range Interpretation Comments POCT GLU (test code = 0101944387) 78 mg/dL 70-110 Lab Interpretation (test code = Normal 03343-2) [facility] GLUCOSE (AUTOMATED)2020-09-25 13:12:39 Test Item Value Reference Range Interpretation Comments POCT GLU (test code = 4236521352) 124 mg/dL 70-110 H Lab Interpretation (test code = Abnormal 74520-4) [facility] [id number] 12:19:15 Test Item Value Reference Range Interpretation Comments NT-proBNP (test code 3460 pg/mL See_Comment H [Autom ated = 2821600020) message] The system which generated this result transmitted reference range : <=125. The reference range was not used to interpret this result as normal/abnormal . DIANE (test code = DIANE) Biotin has been reported to cause a negative bias, interpret results relative to patient's use of biotin. Lab Interpretation Abnormal (test code = 49724-6) [facility] [id number] 12:12:26 Test Item Value Reference Range Interpretation Comments URINE CULTURE (test < 10,000 CFU/mL mixed code = 630-4) aerobic organisms - suggests endogenous microbial contamination [facility] TexasMAGNESIUM2021-05-07 12:10:34 Test Item Value Reference Range Interpretation Comments MAGNESIUM (test code = 9840998027) 1.8 mg/dL 1.7-2.4 Lab Interpretation (test code = Normal 11124-4) [facility] TexasCOMP. METABOLIC PANEL (17346)2020-09-25 12:10:19 Test Item Value Reference Range Interpretation Comments NA (test code = 143 mmol/L 135-145 7588920152) K (test code = 3.5 mmol/L 3.5-5.0 6064801131) CL (test code = 108 mmol/L 98-108 8015803539) CO2 TOTAL (test code = 24 mmol/L 23-31 1235461111) AGAP (test code = 2-16 4974783355) BUN (test code = 12 mg/dL 7-23 0106808678) GLUCOSE (test code = 71 mg/dL 70-110 2044013068) CREATININE (test code = 0.79 mg/dL 0.60-1.25 4397630321) TOTAL BILI (test code = 0.8 mg/dL 0.1-1.4 7771450661) CALCIUM (test code = 8.8 mg/dL 8.6-10.6 2644871202) T PROTEIN (test code = 7.0 g/dL 6.3-8.2 1081282119) ALBUMIN (test code = 3.7 g/dL 3.5-5.0 5469849589) ALK PHOS (test code = 198 U/L 34-122 H 8759590181) ALTv (test code = 21 U/L 5-50 1742-6) AST(SGOT) (test code = 39 U/L 13-40 0877744350) eGFR (test code = mL/min/1.73m2 1046861653) DIANE (test code = DIANE) Association of [...] tests). Lab Interpretation Abnormal (test code = 45366-7) [facility] WITH [id number] 11:35:34 Test Item Value Reference Range Interpretation Comments WBC (test code = See_Comment [Automated 2217-2) message] The sy stem which generated this result transmitted reference range : 4.20 - 10.70 10*3/?L. The reference range was not used to interpret this result as normal/abnormal . RBC (test code = See_Comment L [Automated 118-8) message] The sy stem which generated this [...] (test code = 61.3 fL 38.5-51.6 H 32422-8) RDW-CV (test code = 19.3 % 12.1-15.4 H 788-0) PLT (test code = See_Comment [Automated 777-3) message] The sy stem which generated this result transmitted reference range : 150 - 328 10*3/ ?L. The reference r batsheva was not used to interpret this result as normal/abnormal . MPV (test code = 10.1 fL 9.8-13.0 74538-6) NRBC/100 WBC (test See_Comment [Automat ed code = 5873345872) message] The system which generated this result transmitted reference range : 0.0 - 10.0 /100 WBCs. The refer ence range was not u sed to interpret th is result as normal/abnormal . NRBC x10^3 (test code <0.01 See_Comment [Auto mated = 1819332600) message] The s ystem which generated this result transmitted reference range : 10*3/?L. The reference range was not used to interpret this result as normal/abnormal . GRAN MAT (NEUT) % 81.4 % (test code = 770-8) IMM GRAN % (test code 0.40 % = 3574266154) LYMPH % (test code = 8.1 % 736-9) MONO % (test code = 7.9 % 5905-5) EOS % (test code = 1.8 % 713-8) BASO % (test code = 0.4 % 706-2) GRAN MAT x10^3(ANC) 7.77 10*3/uL 1.99-6.95 H (test code = 9518525368) IMM GRAN x10^3 (test 0.04 10*3/uL 0.00-0.06 code = 3810239137) LYMPH x10^3 (test code 0.77 10*3/uL 1.09-3.23 L = 731-0) MONO x10^3 (test code 0.75 10*3/uL 0.36-1.02 = 742-7) EOS x10^3 (test code = 0.17 10*3/uL 0.06-0.53 711-2) BASO x10^3 (test code 0.04 10*3/uL 0.01-0.09 = 704-7) Lab Interpretation Abnormal (test code = 95463-0) [facility] TexasVITAMIN B12, [id number] 22:07:45 Test Item Value Reference Range Interpretation Comments VIT B12 (test code = 437 pg/mL 240-930 6662277603) DIANE (test code = DIANE) Biotin has been reported to cause a positive bias, interpret results relative to patient's use of biotin. Lab Interpretation (test Normal code = 07488-8) [facility]2020-09-24 21:24:02 Test Item Value Reference Range Interpretation Comments POCT GLU (test code = 9985633564) 107 mg/dL 70-110 Lab Interpretation (test code = Normal 01534-7) [facility] TexasFECAL PATHOGENS BY [id number] 19:46:36 Test Item Value Reference Range Interpretation Comments Campylobacter (jejuni, Negative Negative, coli and upsaliensis) Indeterminate, (test code = 57094-6) See comment Plesiomonas shigelloides Negative Negative, (test code = 98686-5) Indeterminate, See comment Salmonella (test code = Negative Negative, 52123-7) Indeterminate, See comment Yersinia enterocolitica Negative Negative, (test code = 04767-4) Indeterminate, See comment Vibrio (test code = Negative Negative, 93276-4) Indeterminate, See comment Vibrio cholerae (test Negative Negative, code = 50264-1) Indeterminate, See comment Enteroaggregative E. coli Negative Negative, (EAEC) (test code = Indeterminate, 30401-5) See comment Enteropathogenic E. coli Negative Negative, N/A, (EPEC) (test code = Indeterminate, 42467-5) See comment Enterotoxigenic E. coli Negative Negative, (ETEC) (test code = Indeterminate, 64405-6) See comment Shiga toxin-Producing E. Negative Negative, coli (STEC) (test code = Indeterminate, 07129-1) See comment Shigella/Enteroinvasive Negative Negative, E. coli (EIEC) (test code Indeterminate, = 64332-7) See comment Cryptosporidium (test Negative Negative, code = 78444-6) Indeterminate, See comment Cyclospora cayetanensis Negative Negative, (test code = 10382-8) Indeterminate, See comment Entamoeba histolytica Negative Negative, (test code = 43208-4) Indeterminate, See comment Giardia lamblia (test Negative Negative, code = 44792-0) Indeterminate, See comment Adenovirus F 40/41 (test Negative Negative, code = 12360-9) Indeterminate, See comment Astrovirus (test code = Negative Negative, 53321-4) Indeterminate, See comment Norovirus GI/GII (test Negative Negative, code = 63857-4) Indeterminate, See comment Rotavirus A (test code = Negative Negative, 74869-5) Indeterminate, See comment Sapovirus (test code = Negative Negative, 23809-8) Indeterminate, See comment DIANE (test code = DIANE) Negative:A negative result does not rule-out infection. ?This assay does not test for all potential infectious agents of diarrheal disease. Positive:A positive test result does not necessarily indicate the presence of viable organism. Lab Interpretation (test Normal code = 53025-0) [facility] TexasFECAL [id number] 19:30:50 Test Item Value Reference Range Interpretation Comments Fecal Leukocytes (test code = Negative Negative 7501313445) Lab Interpretation (test code = Normal 79192-5) [facility] TexasCLOSTRIDIUM DIFFICILE [id number] 17:27:30 Test Item Value Reference Range Interpretation Comments Clostridioides (Clostridium) Negative Negative difficile (test code = 87194-4) Lab Interpretation (test code = Normal 27829-3) [facility]2020-09-24 17:06:38 Test Item Value Reference Range Interpretation Comments POCT GLU (test code = 3924603938) 81 mg/dL 70-110 Lab Interpretation (test code = Normal 46931-4) [facility] TexasPROCALCITONIN2021-05-06 17:00:06 Test Item Value Reference Range Interpretation Comments Procalcitonin (test 0.02 ng/mL <0.07 code = 7862611864) DIANE (test code = DIANE) INTERPRETATION OF [...] lung abscess/empyema. For further information please refer to:[email or web address] Lab Interpretation Normal (test code = 98726-2) [facility]VIT[facility]IN D, [id number] 16:58:53 Test Item Value Reference Range Interpretation Comments VIT D 25OH (test code = 13 ng/mL 25-80 L 49652-3) DIANE (test code = DIANE) Deficiency: <20 ng/mLInsufficiency: 20-24 ng/mLOptimal: 25-80 ng/mL Lab Interpretation (test Abnormal code = 25470-4) [facility]2020-09-24 12:54:33 Test Item Value Reference Range Interpretation Comments POCT GLU (test code = 5510334471) 106 mg/dL 70-110 Lab Interpretation (test code = Normal 46292-1) [facility] TexasTROPONIN [id number] 12:23:41 Test Item Value Reference Range Interpretation Comments TROPONIN I (test 0.026 ng/mL See_Comment [Automated code = 8020340651) message] The system which generated this result [...] ? Lab Interpretation Normal (test code = 99299-9) [facility]N-TERMINAL [id number] 12:20:44 Test Item Value Reference Range Interpretation Comments NT-proBNP (test code 5200 pg/mL See_Comment H [Autom ated = 9004426867) message] The system which generated this result transmitted reference range : <=125. The reference range was not used to interpret this result as normal/abnormal . DIANE (test code = DIANE) Biotin has been reported to cause a negative bias, interpret results relative to patient's use of biotin. Lab Interpretation Abnormal (test code = 45960-0) [facility]COMP. METABOLIC PANEL (36301)2020-09-24 12:13:01 Test Item Value Reference Range Interpretation Comments NA (test code = 142 mmol/L 135-145 6434023629) K (test code = 3.8 mmol/L 3.5-5.0 4882877342) CL (test code = 111 mmol/L 98-108 H 0426777149) CO2 TOTAL (test code = 22 mmol/L 23-31 L 5197949234) AGAP (test code = 2-16 3323149802) BUN (test code = 10 mg/dL 7-23 6259024626) GLUCOSE (test code = 109 mg/dL 70-110 1154522902) CREATININE (test code = 0.66 mg/dL 0.60-1.25 1168710799) TOTAL BILI (test code = 1.2 mg/dL 0.1-1.1 H 8917980911) CALCIUM (test code = 8.9 mg/dL 8.6-10.6 3577555608) T PROTEIN (test code = 6.9 g/dL 6.3-8.2 4220665753) ALBUMIN (test code = 3.7 g/dL 3.5-5.0 6327186918) ALK PHOS (test code = 133 U/L 34-122 H 0487243094) ALTv (test code = 11 U/L 5-50 1742-6) AST(SGOT) (test code = 30 U/L 13-40 9434712198) eGFR (test code = mL/min/1.73m2 1569123228) DIANE (test code = DIANE) Association of [...] tests). Lab Interpretation Abnormal (test code = 51192-1) [facility] WITH [id number] 11:45:37 Test Item Value Reference Range Interpretation [...] (test code = 62.0 fL 38.5-51.6 H 49024-1) RDW-CV (test code = 19.8 % 12.1-15.4 H 788-0) PLT (test code = See_Comment [Automated 777-3) message] The sy stem which generated this result transmitted reference range : 150 - 328 10*3/ ?L. The reference r batsheva was not used to interpret this result as normal/abnormal . MPV (test code = 10.8 fL 9.8-13.0 08192-8) NRBC/100 WBC (test See_Comment [Automat ed code = 7386020973) message] The system which generated this result transmitted reference range : 0.0 - 10.0 /100 WBCs. The refer ence range was not u sed to interpret th is result as normal/abnormal . NRBC x10^3 (test code <0.01 See_Comment [Auto mated = 8188682061) message] The s ystem which generated this result transmitted reference range : 10*3/?L. The reference range was not used to interpret this result as normal/abnormal . GRAN MAT (NEUT) % 57.2 % (test code = 770-8) IMM GRAN % (test code 0.40 % = 5384134315) LYMPH % (test code = 25.9 % 736-9) MONO % (test code = 10.3 % 5905-5) EOS % (test code = 5.4 % 713-8) BASO % (test code = 0.8 % 706-2) GRAN MAT x10^3(ANC) 2.96 10*3/uL 1.99-6.95 (test code = 7962664565) IMM GRAN x10^3 (test <0.03 0.00-0.06 code = 7420800829) LYMPH x10^3 (test code 1.34 10*3/uL 1.09-3.23 = 731-0) MONO x10^3 (test code 0.53 10*3/uL 0.36-1.02 = 742-7) EOS x10^3 (test code = 0.28 10*3/uL 0.06-0.53 711-2) BASO x10^3 (test code 0.04 10*3/uL 0.01-0.09 = 704-7) Lab Interpretation Abnormal (test code = 78830-5) [facility] TexasSEDIMENTATION [id number] 04:34:43 Test Item Value Reference Range Interpretation Comments ESR (test code = See_Comment H [Automated message] 9462412826) The system [employer] generated this result transmitted ref erence range: 0 - 10 m m/HR. The reference r batsheva was not used to interpret this result as normal/abnor mal. Lab Interpretation (test Abnormal code = 10996-5) [facility] TexasTROPONIN [id number] 04:15:11 Test Item Value Reference Range Interpretation Comments TROPONIN I (test 0.020 ng/mL See_Comment [Automated code = 0303935243) message] The system which generated this result [...] ? Lab Interpretation Normal (test code = 61173-2) [facility] TexasIRON [id number] 04:09:49 Test Item Value Reference Range Interpretation Comments IRON (test code = 7194820015) 67 ug/dL 50-160 TIBC (test code = 9975331018) 332 ug/dL 250-410 % FE SAT (test code = 0095941599) 20 % 20-50 Lab Interpretation (test code = Normal 20683-8) [facility] TexasGLYCOSYLATED HEMOGLOBIN (A1C)2020-09-24 03:33:55 Test Item Value Reference Range Interpretation Comments HGB A1C (test code = 6.6 % 4.0-5.7 H 4548-4) DIANE (test code = DIANE) Reference RangesNormal: <5.7%Prediabetes: 5.7 - 6.4%Diabetes: > 6.5% Lab Interpretation (test Abnormal code = 50412-9) [facility] TexasURIC [id number] 03:28:24 Test Item Value Reference Range Interpretation Comments URIC ACID (test code = 5572084542) 8.0 mg/dL 3.6-8.0 Lab Interpretation (test code = Normal 53321-6) [facility] TexasTHYROID STIMULATING [id number] 03:28:19 Test Item Value Reference Range Interpretation Comments TSH (test code = See_Comment Biotin has been 2239465062) reported to cau se a negative bias, interpret resul ts relative to pat ient's use of biotin. [Automated mess age] The system Sk[employer] generated this result transmitted ref erence range: 0.45 - 4 .70 mIU/L. The refe rence range was not u sed to interpret this result as normal/abnor mal. Lab Interpretation (test Normal code = 29377-1) [facility] TexasPHOSPHORUS2021-05-06 03:28:09 Test Item Value Reference Range Interpretation Comments PHOSPHORUS (test code = 2439890495) 4.4 mg/dL 2.5-5.0 Lab Interpretation (test code = Normal 51178-3) [facility] TexasMAGNESIUM2021-05-06 03:28:03 Test Item Value Reference Range Interpretation Comments MAGNESIUM (test code = 5195818326) 2.0 mg/dL 1.7-2.4 Lab Interpretation (test code = Normal 51455-5) [facility] TexasFERRITIN [id number] 03:27:53 Test Item Value Reference Range Interpretation Comments FERRITIN (test code = 66.7 ng/mL 18.0-464.0 6415820642) DIANE (test code = DIANE) Biotin has been reported to cause a negative bias, interpret results relative to patient's use of biotin. Lab Interpretation (test Normal code = 73849-6) [facility] TexasCREATINE [id number] 03:27:43 Test Item Value Reference Range Interpretation Comments CK (test code = 1148440766) 63 U/L 33-194 Lab Interpretation (test code = Normal 05041-7) [facility] TexasLIPID PANEL (20276)(TOTAL CHOLESTEROL, TRIGLYCERIDES, HDL)2020-09-24 02:30:13 Test Item Value Reference Range Interpretation Comments CHOL (test code = 180 mg/dL 120-200 9178995231) HDL (test code = 28 mg/dL >40 L 3745678070) HDLC RATIO (test code = See_Comment H [Au tomated message] 2645191930) The system [employer] generated this result transmit ludmila reference range : <=5.0. The refe rence range was not u sed to interpret th is result as normal/abnormal . TRIG (test code = 152 mg/dL 30-170 4561688407) LDL CHOL (test code = 122 mg/dL See_Comment [Auto mated message] 90027-8) The system [employer] generated this result transmit ludmila reference range : <=160. The refe rence range was not u sed to interpret th is result as normal/abnormal . VLDL (test code = 30 mg/dL 5-60 5589121078) Lab Interpretation (test Abnormal code = 47136-7) [facility]POOR GLUCOSE (AUTOMATED)2020-09-24 01:29:04 Test Item Value Reference Range Interpretation Comments POCT GLU (test code = 3004346391) 137 mg/dL 70-110 H Lab Interpretation (test code = Abnormal 70827-7) [facility] TexasCritical Xjjo1145-06-31 23:17:14NeSiva turner MD ? ? 09/23/2020 ?6:17 PMCritical CarePerformed [...] condition and evaluation of [facility] with eskxclqr9857-06-69 23:13:39 1. ?Thickening of the urinary bladder, [...] arepresent at the anterior superior iliac spines. [facility], Radiant Results Inft User - 09/23/2020 6:14 [...] this study and agree withthe above report. [facility] TexasCT thorax with prwuovxp7435-96-30 22:58:21 1. ?No evidence of pulmonary embolism [...] ventricle. Fractured superior sternotomy wireappears unchanged since 2019[employer]: The visualized portions of [...] reviewed this study and agree withthe above report.[facility] Yoftftkfio2711-22-04 21:00:34 Test Item Value Reference Range Interpretation Comments APPEARANCE (test code = Hazy Clear A 4538354028) COLOR (test code = Zoë Yellow A 4555173079) PH (test code = 4.8-8.0 5068947615) SP GRAVITY (test code = 1.003-1.030 5790136046) GLU U QUAL (test code = 50 mg/dL Normal A 0171149207) BLOOD (test code = 1+ Negative A 4923997983) KETONES (test code = Negative Negative 8755242177) PROTEIN (test code = 500 mg/dL Negative A 2887-8) UROBILIN (test code = 4.0 mg/dL Normal A 4916239994) BILIRUBIN (test code = Negative Negative 2790529316) NITRITE (test code = Negative Negative 8311861233) LEUK PETER (test code = Negative Negative 2881855790) RBC/HPF (test code = See_Comment [Autom ated message] 9217693643) The system [employer] generated this result transmit ludmila reference range : 0 - 3 HPF. The refe rence range was not u sed to interpret th is result as normal/abnormal . WBC/HPF (test code = See_Comment [Autom ated message] 7915766171) The system [employer] generated this result transmit ludmila reference range : 0 - 5 HPF. The refe rence range was not u sed to interpret th is result as normal/abnormal . BACTERIA (test code = Few Negative A 2339168112) MUCOUS (test code = Slight Negative LPF A 1820631208) SQ EPITH (test code = <1 HPF 5547648879) HYAL CAST (test code = See_Comment [Aut omated message] 1347254781) The system [employer] generated this result transmit ludmila reference range : <=2 LPF. The refere nce range was not u sed to interpret th is result as normal/abnormal . Lab Interpretation (test Abnormal code = 37835-2) [facility] TexasTroponin [id number] 20:26:45 Test Item Value Reference Range Interpretation Comments TROPONIN I (test 0.013 ng/mL See_Comment [Automated code = 2090610888) message] The system which generated this result [...] ? Lab Interpretation Normal (test code = 91884-0) [facility] TexasN-TERMINAL [id number] 20:23:45 Test Item Value Reference Range Interpretation Comments NT-proBNP (test code 4190 pg/mL See_Comment H [Autom ated = 9977328156) message] The system which generated this result transmitted reference range : <=125. The reference range was not used to interpret this result as normal/abnormal . DIANE (test code = DIANE) Biotin has been reported to cause a negative bias, interpret results relative to patient's use of biotin. Lab Interpretation Abnormal (test code = 13995-1) [facility] TexasType and Screen - ONCE [id number] 20:20:12 Test Item Value Reference Range Interpretation Comments ABO & RH (test code O Positive Performe d at [facility] = 20) Laboratory Serv [facility] [address] [place] [phone] Free: [phone] A No. [id number] IAT (test code = Negative Performed a t [facility] 1185) Laboratory Serv [facility] [address] [place] [phone] Free: [phone] A No. [id number] [facility] TexasHepatic Function Panel (ALB, T.PRO, BILI T, BU/BC, ALT, AST, ALK PHOS)2020-09-23 20:15:06 Test Item Value Reference Range Interpretation Comments TOTAL BILI (test code = 5889752213) 0.8 mg/dL 0.1-1.1 BILI UNCON (test code = 2199545603) 0.5 mg/dL 0.1-1.1 BILI CONJ (test code = 0332652371) 0.0 mg/dL 0.0-0.3 T PROTEIN (test code = 2297537872) 6.8 g/dL 6.3-8.2 ALBUMIN (test code = 4754737667) 3.7 g/dL 3.5-5.0 ALK PHOS (test code = 6467328773) 115 U/L 34-122 ALTv (test code = 1742-6) 10 U/L 5-50 AST(SGOT) (test code = 9441951063) 20 U/L 13-40 Lab Interpretation (test code = Normal 62068-8) [facility] TexasBasic Metabolic Panel (NA, K, CL, CO2, GLUCOSE, BUN, CREATININE, CA)2020-09-23 20:14:46 Test Item Value Reference Range Interpretation Comments NA (test code = 141 mmol/L 135-145 9128704799) K (test code = 3.6 mmol/L 3.5-5.0 2914516808) CL (test code = 112 mmol/L 98-108 H 9279207262) CO2 TOTAL (test code = 20 mmol/L 23-31 L 9920098840) AGAP (test code = 2-16 1985210839) BUN (test code = 11 mg/dL 7-23 2638918334) GLUCOSE (test code = 159 mg/dL 70-110 H 6464405489) CREATININE (test code = 0.63 mg/dL 0.60-1.25 8239958988) CALCIUM (test code = 8.5 mg/dL 8.6-10.6 L 1319422488) eGFR (test code = mL/min/1.73m2 0688457445) DIANE (test code = DIANE) Association of [...] tests). Lab Interpretation Abnormal (test code = 05176-1) [facility] TexasLipase [id number] 20:14:46 Test Item Value Reference Range Interpretation Comments LIPASE (test code = 5946632251) 59 U/L 0-220 Lab Interpretation (test code = Normal 94394-9) [facility] TexasCOVID-19 (ID NOW RAPID TESTING)2020-09-23 20:02:44 Test Item Value Reference Range Interpretation Comments SARS-CoV-2 Rapid ID NOW Not Detected Not Detected (test code = 13509-5) DIANE (test code = DIANE) ID NOW COVID-19 Assay is an isothermal nucleic acid amplification test intended for the qualitative detection of nucleic acid from SARS-CoV-2 viral RNA in nasopharyngeal (FLOOR SUPERVISOR) specimens. It is used under Emergency Use [...] indicated. Lab Interpretation Normal (test code = 01495-2) [facility] 19:56:43 Test Item Value Reference Range Interpretation Comments APTT Patient (test See_Comment [Automat ed code = 3173-2) message] The system which generated this result transmitted reference range : 23 - 38 Seconds . The reference range was not used to interpr et this result as normal/abnormal . DIANE (test code = DIANE) The [facility] patient population mean normal value for aPTT is 30 seconds. Lab Interpretation Normal (test code = 46202-9) [facility] TexasProthrombin Time (PT) / [id number] 19:53:59 Test Item Value Reference Range Interpretation [...] tions. Lab Interpretation (test Normal code = 89095-5) [facility] TexasCBC with [id number] 19:38:57 Test Item Value Reference Range Interpretation [...] (test code = 61.7 fL 38.5-51.6 H 71918-1) RDW-CV (test code = 19.9 % 12.1-15.4 H 788-0) PLT (test code = See_Comment [Automated 777-3) message] The sy stem which generated this result transmitted reference range : 150 - 328 10*3/ ?L. The reference r batsheva was not used to interpret this result as normal/abnormal . MPV (test code = 9.4 fL 9.8-13.0 L 23517-0) NRBC/100 WBC (test See_Comment [Automat ed code = 3157934225) message] The system which generated this result transmitted reference range : 0.0 - 10.0 /100 WBCs. The refer ence range was not u sed to interpret th is result as normal/abnormal . NRBC x10^3 (test code <0.01 See_Comment [Auto mated = 4389449078) message] The s ystem which generated this result transmitted reference range : 10*3/?L. The reference range was not used to interpret this result as normal/abnormal . GRAN MAT (NEUT) % 64.0 % (test code = 770-8) IMM GRAN % (test code 0.40 % = 5978436049) LYMPH % (test code = 22.4 % 736-9) MONO % (test code = 9.1 % 5905-5) EOS % (test code = 3.4 % 713-8) BASO % (test code = 0.7 % 706-2) GRAN MAT x10^3(ANC) 3.57 10*3/uL 1.99-6.95 (test code = 0721895829) IMM GRAN x10^3 (test <0.03 0.00-0.06 code = 3053702630) LYMPH x10^3 (test code 1.25 10*3/uL 1.09-3.23 = 731-0) MONO x10^3 (test code 0.51 10*3/uL 0.36-1.02 = 742-7) EOS x10^3 (test code = 0.19 10*3/uL 0.06-0.53 711-2) BASO x10^3 (test code 0.04 10*3/uL 0.01-0.09 = 704-7) Lab Interpretation Abnormal (test code = 36232-3) [facility] 1 [id number] 19:11:24HISTORY: Chest pain. TECHNIQUE: Portable AP view [...] changes are seen in the retrocardiac left lowerlung.[facility], Radiant Results Inft User - 09/23/2020 2:12 [...] changes are seen in the retrocardiac left lowerlung.[facility] TexasBLOOD CULTURE [id number] 03:02:43 Test Item Value Reference Range Interpretation Comments Blood Culture-Aerobic No organisms No growth Previo us (test code = 80782-1) isolated prelim inary verified result was Culture In Progress on 09/03/2020 at 05 22 CDTPrevious preliminary verified result was No growth a t 24 hours on 09/03/2020 at 12 06 CDTPrevious preliminary verified result was No growth a t 48 hours on 09/04/2020 at 13 07 CDTPrevious preliminary verified result was No growth a t 72 hours on 09/05/2020 at 22 01 CDT Blood No organisms No growth Previous Culture-Anaerobic isolated preliminar y (test code = 76965-1) verifi ed result was Culture In Progress on 09/03/2020 at 05 22 CDTPrevious preliminary verified result was No growth a t 24 hours on 09/03/2020 at 12 06 CDTPrevious preliminary verified result was No growth a t 48 hours on 09/04/2020 at 13 07 CDTPrevious preliminary verified result was No growth a t 72 hours on 09/05/2020 at 22 01 CDT Lab Interpretation Normal (test code = 68043-2) [facility] CULTURE [id number] 03:02:37 Test Item Value Reference Range Interpretation Comments Blood Culture-Aerobic No organisms No growth Previo us (test code = 08210-3) isolated prelim inary verified result was Culture In Progress on 09/03/2020 at 05 22 CDTPrevious preliminary verified result was No growth a t 24 hours on 09/03/2020 at 12 06 CDTPrevious preliminary verified result was No growth a t 48 hours on 09/04/2020 at 13 07 CDTPrevious preliminary verified result was No growth a t 72 hours on 09/05/2020 at 22 01 CDT Blood No organisms No growth Previous Culture-Anaerobic isolated preliminar y (test code = 76136-2) verifi ed result was Culture In Progress on 09/03/2020 at 05 22 CDTPrevious preliminary verified result was No growth a t 24 hours on 09/03/2020 at 12 06 CDTPrevious preliminary verified result was No growth a t 48 hours on 09/04/2020 at 22 02 CDTPrevious preliminary verified result was No growth a t 72 hours on 09/05/2020 at 22 01 CDT Lab Interpretation Normal (test code = 89770-5) [facility] GLUCOSE (AUTOMATED)2020-09-07 17:30:54 Test Item Value Reference Range Interpretation Comments POCT GLU (test code = 4728821886) 100 mg/dL 70-110 Lab Interpretation (test code = Normal 45236-9) [facility] GLUCOSE (AUTOMATED)2020-09-07 13:34:36 Test Item Value Reference Range Interpretation Comments POCT GLU (test code = 8704532549) 104 mg/dL 70-110 Lab Interpretation (test code = Normal 74814-3) [facility] TexasLAB ONLY COVID [id number] 03:22:39COVID DMT InterpretationInterpretation/Recommendations: Molecular NAAT Tests for [...] COVID-19 testing the patient has had at [facility], including molecular NAAT testing (more commonly known as PCR testing and Rapid ID Now testing) and antibody testing. It does not take into account any testing that a patient has had outside of the [facility] medical record. [facility] LABORATORY SERVICESCOVID Resul lqNXKD-WdV-3 Rapid ID NOW (no units) ? ? [...] ? ? 09/17/2019 ? Not Detected ? [facility]2020-09-07 01:56:49 Test Item Value Reference Range Interpretation Comments POCT GLU (test code = 8067458048) 120 mg/dL 70-110 H Lab Interpretation (test code = Abnormal 29862-5) [facility] GLUCOSE (AUTOMATED)2020-09-06 14:03:31 Test Item Value Reference Range Interpretation Comments POCT GLU (test code = 7501666028) 107 mg/dL 70-110 Lab Interpretation (test code = Normal 79661-7) [facility] GLUCOSE (AUTOMATED)2020-09-06 02:46:39 Test Item Value Reference Range Interpretation Comments POCT GLU (test code = 5016045341) 132 mg/dL 70-110 H Lab Interpretation (test code = Abnormal 75613-6) [facility] GLUCOSE (AUT[facility]ATED)2020-09-05 14:23:02 Test Item Value Reference Range Interpretation Comments POCT GLU (test code = 3982252823) 115 mg/dL 70-110 H Lab Interpretation (test code = Abnormal 60816-4) [facility] WITH [id number] 10:22:11 Test Item Value Reference Range Interpretation [...] (test code = 60.7 fL 38.5-51.6 H 42778-7) RDW-CV (test code = 18.3 % 12.1-15.4 H 788-0) PLT (test code = See_Comment [Automated 777-3) message] The sy stem which generated this result transmitted reference range : 150 - 328 10*3/ ?L. The reference r batsheva was not used to interpret this result as normal/abnormal . MPV (test code = 9.4 fL 9.8-13.0 L 71163-4) NRBC/100 WBC (test See_Comment [Automat ed code = 2935885227) message] The system which generated this result transmitted reference range : 0.0 - 10.0 /100 WBCs. The refer ence range was not u sed to interpret th is result as normal/abnormal . NRBC x10^3 (test code <0.01 See_Comment [Auto mated = 3278614534) message] The s ystem which generated this result transmitted reference range : 10*3/?L. The reference range was not used to interpret this result as normal/abnormal . GRAN MAT (NEUT) % 71.6 % (test code = 770-8) IMM GRAN % (test code 0.40 % = 2289095391) LYMPH % (test code = 16.1 % 736-9) MONO % (test code = 7.1 % 5905-5) EOS % (test code = 4.1 % 713-8) BASO % (test code = 0.7 % 706-2) GRAN MAT x10^3(ANC) 6.60 10*3/uL 1.99-6.95 (test code = 8493368476) IMM GRAN x10^3 (test 0.04 10*3/uL 0.00-0.06 code = 6065015163) LYMPH x10^3 (test code 1.48 10*3/uL 1.09-3.23 = 731-0) MONO x10^3 (test code 0.65 10*3/uL 0.36-1.02 = 742-7) EOS x10^3 (test code = 0.38 10*3/uL 0.06-0.53 711-2) BASO x10^3 (test code 0.06 10*3/uL 0.01-0.09 = 704-7) Lab Interpretation Abnormal (test code = 77585-8) [facility] GLUCOSE (AUTOMATED)2020-09-05 01:21:19 Test Item Value Reference Range Interpretation Comments POCT GLU (test code = 5659874609) 171 mg/dL 70-110 H Lab Interpretation (test code = Abnormal 84486-1) [facility] GLUCOSE (AUTOMATED)2020-09-04 21:20:39 Test Item Value Reference Range Interpretation Comments POCT GLU (test code = 4249006720) 160 mg/dL 70-110 H Lab Interpretation (test code = Abnormal 80916-2) [facility] TexasLIPASE2021-04-16 16:05:28 Test Item Value Reference Range Interpretation Comments LIPASE (test code = 5389450489) 106 U/L 0-220 Lab Interpretation (test code = Normal 91408-7) [facility] GLUCOSE (AUTOMATED)2020-09-04 15:41:59 Test Item Value Reference Range Interpretation Comments POCT GLU (test code = 6735458583) 102 mg/dL 70-110 Lab Interpretation (test code = Normal 14828-3) [facility] GLUCOSE (AUTOMATED)2020-09-04 14:16:43 Test Item Value Reference Range Interpretation Comments POCT GLU (test code = 9562064643) 73 mg/dL 70-110 Lab Interpretation (test code = Normal 87331-2) [facility] GLUCOSE (AUTOMATED)2020-09-03 23:42:28 Test Item Value Reference Range Interpretation Comments POCT GLU (test code = 9525766015) 172 mg/dL 70-110 H Lab Interpretation (test code = Abnormal 29437-3) [facility] GLUCOSE (AUTOMATED)2020-09-03 15:24:47 Test Item Value Reference Range Interpretation Comments POCT GLU (test code = 0131217065) 71 mg/dL 70-110 Lab Interpretation (test code = Normal 62125-7) [facility] GLUCOSE (AUTOMATED)2020-09-03 08:17:31 Test Item Value Reference Range Interpretation Comments POCT GLU (test code = 1206137559) 83 mg/dL 70-110 Lab Interpretation (test code = Normal 09277-0) [facility] GLUCOSE (AUTOMATED)2020-09-03 07:42:01 Test Item Value Reference Range Interpretation Comments POCT GLU (test code = 1919921965) 59 mg/dL 70-110 L Lab Interpretation (test code = Abnormal 12232-8) [facility] METABOLIC PANEL (NA, K, CL, CO2, GLUCOSE, BUN, CREATININE, CA)2020-09-03 02:06:48 Test Item Value Reference Range Interpretation Comments NA (test code = 136 mmol/L 135-145 2206959679) K (test code = 4.6 mmol/L 3.5-5.0 1585734255) CL (test code = 104 mmol/L 98-108 8637283748) CO2 TOTAL (test code = 23 mmol/L 23-31 1814688350) AGAP (test code = 2-16 2195871243) BUN (test code = 28 mg/dL 7-23 H 5782120681) GLUCOSE (test code = 197 mg/dL 70-110 H 1262959192) CREATININE (test code = 1.15 mg/dL 0.60-1.25 8914002104) CALCIUM (test code = 7.7 mg/dL 8.6-10.6 L 7128823068) eGFR (test code = mL/min/1.73m2 6430418692) DIANE (test code = DIANE) Association of [...] tests). Lab Interpretation Abnormal (test code = 97857-0) [facility] TexasN-TERMINAL [id number] 02:06:38 Test Item Value Reference Range Interpretation Comments NT-proBNP (test code 1630 pg/mL See_Comment H [Autom ated = 8425192492) message] The system which generated this result transmitted reference range : <=125. The reference range was not used to interpret this result as normal/abnormal . DIANE (test code = DIANE) Biotin has been reported to cause a negative bias, interpret results relative to patient's use of biotin. Lab Interpretation Abnormal (test code = 31120-8) [facility] TexasHEPATIC FUNCTION PANEL (52840) (ALB,T.PRO,BILI T,BU/BC,ALT,AST,ALK PHOS)2020-09-03 01:58:26 Test Item Value Reference Range Interpretation Comments TOTAL BILI (test code = 1247590267) 0.2 mg/dL 0.1-1.1 BILI UNCON (test code = 2847874002) 0.0 mg/dL 0.1-1.1 L BILI CONJ (test code = 5084326714) 0.0 mg/dL 0.0-0.3 T PROTEIN (test code = 2496250954) 6.1 g/dL 6.3-8.2 L ALBUMIN (test code = 8697108510) 3.2 g/dL 3.5-5.0 L ALK PHOS (test code = 6601861507) 67 U/L 34-122 ALTv (test code = 1742-6) 13 U/L 5-50 AST(SGOT) (test code = 3048974834) 20 U/L 13-40 Lab Interpretation (test code = Abnormal 89212-5) [facility] TexasLIPASE2021-04-15 01:58:26 Test Item Value Reference Range Interpretation Comments LIPASE (test code = 6499400375) 774 U/L 0-220 H Lab Interpretation (test code = Abnormal 29333-8) [facility] TexasXR CHEST 1 [id number] 23:51:42Impression: 1. Retrocardiac consolidation or atelectasis.2. Mildly [...] clips project at the right upper quadrant. [facility], Radiant Results Inft User - 09/02/2020 6:52 [...] Mildly enlarged cardiac silhouette.RL: 2824End of Report [facility] ([facility] NOW RAPID TESTING)2020-09-02 23:41:38 Test Item Value Reference Range Interpretation Comments SARS-CoV-2 Rapid ID NOW Not Detected Not Detected (test code = 61009-1) DIANE (test code = DIANE) ID NOW COVID-19 Assay is an isothermal nucleic acid amplification test intended for the qualitative detection of nucleic acid from SARS-CoV-2 viral RNA in nasopharyngeal (FLOOR SUPERVISOR) specimens. It is used under Emergency Use [...] indicated. Lab Interpretation Normal (test code = 83118-4) [facility] TexasLactic Acid Whole [id number] 23:25:01 Test Item Value Reference Range Interpretation Comments LACTIC ACID (test code = 1.50 mmol/L 0.50-2.20 0691265322) Lab Interpretation (test code = Normal 64787-7) [facility] TexasTROPONIN [id number] 22:49:31 Test Item Value Reference Range Interpretation Comments TROPONIN I (test 0.010 ng/mL See_Comment [Automated code = 0063351713) message] The system which generated this result [...] ? Lab Interpretation Normal (test code = 23511-6) [facility] TexasCOM. METABOLIC PANEL (60542)2020-09-02 22:39:11 Test Item Value Reference Range Interpretation Comments NA (test code = 135 mmol/L 135-145 1738341446) K (test code = 4.7 mmol/L 3.5-5.0 2151614865) CL (test code = 101 mmol/L 98-108 6227827533) CO2 TOTAL (test code = 24 mmol/L 23-31 9789685488) AGAP (test code = 2-16 0247509833) BUN (test code = 29 mg/dL 7-23 H 5655110199) GLUCOSE (test code = 217 mg/dL 70-110 H 8120510187) CREATININE (test code = 1.21 mg/dL 0.60-1.25 9589490329) TOTAL BILI (test code = 0.2 mg/dL 0.1-1.7 0910635846) CALCIUM (test code = 8.3 mg/dL 8.6-10.6 L 6388347670) T PROTEIN (test code = 6.4 g/dL 6.3-8.2 5915794530) ALBUMIN (test code = 3.3 g/dL 3.5-5.0 L 8599963421) ALK PHOS (test code = 69 U/L 34-122 2709057907) ALTv (test code = 15 U/L 5-50 1742-6) AST(SGOT) (test code = 19 U/L 13-40 5737468835) eGFR (test code = mL/min/1.73m2 4049136985) DIANE (test code = DIANE) Association of [...] tests). Lab Interpretation Abnormal (test code = 63653-6) [facility] TexasPROTHROMBIN TIME / [id number] 22:33:07 Test Item Value Reference Range Interpretation [...] tions. Lab Interpretation (test Abnormal code = 05126-5) [facility] TexasCBC WITH [id number] 22:31:08 Test Item Value Reference Range Interpretation Comments WBC (test code = See_Comment H [Automated 0590-2) message] The system which generated this result [...] (test code = 57.2 fL 38.5-51.6 H 36268-9) RDW-CV (test code = 17.9 % 12.1-15.4 H 788-0) PLT (test code = See_Comment H [Automated 777-3) message] The system which generated this result transmit ludmila reference range : 150 - 328 10*3/ ?L. The reference range was not u sed to interpret th is result as normal/abnormal . MPV (test code = 9.3 fL 9.8-13.0 L 53540-9) NRBC/100 WBC (test See_Comment [Automat ed code = 4044383512) message] The system which generated this result transmit ludmila reference range : 0.0 - 10.0 /100 WBCs. The reference range was not used to interpret this result as normal/abnormal . NRBC x10^3 (test code <0.01 See_Comment [Auto mated = 7183086214) message] The system which generated this result transmit ludmila reference range : 10*3/?L. The reference range was not used to interpret this result as normal/abnormal . GRAN MAT (NEUT) % 81.2 % (test code = 770-8) IMM GRAN % (test code 1.10 % = 3083592259) LYMPH % (test code = 9.4 % 736-9) MONO % (test code = 4.5 % 5905-5) EOS % (test code = 3.4 % 713-8) BASO % (test code = 0.4 % 706-2) GRAN MAT x10^3(ANC) 11.36 10*3/uL 1.99-6.95 H (test code = 2102832887) IMM GRAN x10^3 (test 0.15 10*3/uL 0.00-0.06 H code = 9342063111) LYMPH x10^3 (test code 1.31 10*3/uL 1.09-3.23 = 731-0) MONO x10^3 (test code 0.63 10*3/uL 0.36-1.02 = 742-7) EOS x10^3 (test code = 0.48 10*3/uL 0.06-0.53 711-2) BASO x10^3 (test code 0.06 10*3/uL 0.01-0.09 = 704-7) Lab Interpretation Abnormal (test code = 54131-1) [facility] TexasBASI METABOLIC [id number] 21:42:00 Test Item Value Reference Range Interpretation [...] 9.6 mg/dL 8.0-10.5 N CA) HEPATIC FUNCTION [id number] 21:42:00 Test Item Value Reference Range Interpretation [...] 114 IUnit/L 20-125 N code = ALKP) [id number] 21:42:00 Test Item Value Reference Range Interpretation Comments LIPASE (test code = LIP) 70 U/L 13-57 H [id number] 21:42:00 Test Item Value Reference Range Interpretation [...] by method. UA RFLX MICR CULT IF [id number] 21:37:00 Test Item Value Reference Range Interpretation [...] Indication for culture: Dysuria/FrequencySpecimen Description: INDWELLING CATH (CEDENO)Cath Status: Under 72 hoursPROTHROMBIN [id number] 21:35:00 Test Item Value Reference Range Interpretation [...] o prevent recurre nt infarct). THROMBOPLASTIN TIME [id number] 21:35:00 Test Item Value Reference Range Interpretation Comments THROMBOPLASTIN TIME 41.7 Seconds 25.0-39.5 H Ther apeutic PARTIAL (test code = Range: 50.4 - 88.3 PTT) Seconds Effective 09/04/2018 CBC W/AUTO [id number] 21:29:00 Test Item Value Reference Range Interpretation [...] = MDIFF) - CT ABD PELVIS W/O [id number] 20:49:00 [facility] : 1960 Sex: M Name: ERNIE VANCE [facility] Jonn Mejia : 1960 Age/S: 60 / M [address] [place] [address] Bl Unit #: [id number] Loc: [place] [address] Phys: Gisel Eugene HAND POLISHER Acct: [id number] Dis Date: Status: REG ER PHONE #: [phone] Exam Date: 08/23/20202024 FAX #: [phone] Reason: DIFFUSE ABDOMINAL PAIN EXAMS: CPT CODE: [id number] CT ABD PELVIS W/O CONT 91182 C linical indication: Diffuse abdominal pain. Contrast [...] VANCE : 1960 Age/S: 60 / M [address] [place] [address] Unit #: [id number] Loc: [place] [address] Phys: Gisel Eugene Acct: [id number] Dis Date: Status: REG ER PHONE #: [phone] Exam Date: 08/23/20202024 FAX #: [phone] Reason: DIFFUSE ABDOMINAL PAIN EXAMS: CPT CODE: [id number] CT ABD PELVIS W/O CONT 47136 <Continued> Peritoneum/Other: No extraluminal air. No extraluminal [...] Irene Katz M.D. CC: Alf Hope DO; Nika Martin MD; Gisel Eugene Technologist:RT Fanta(R)(CT) CTDI: DLP: Trnscb Date/Time: 08/23/2020 (2048) JhonVB9 Orig Print D/T: S: 08/23/2020 (2051) PAGE 2 Signed ReportBASIC METABOLIC [id number] 07:51:00 Test Item Value Reference Range Interpretation [...] >3 months. [Automated mess age] The system [employer] generated this result transmitted ref erence range: >=60. Th e reference range was not used to int erpret this result as normal/abnormal . CREATININE (test 1.20 mg/dL 0.7-1.3 N code = CREAT) BUN/CREATININE RATIO 22.1 10-20 H (test code = BUN/CREA) CALCIUM (test code = 8.6 mg/dL 8.5-10.1 N CA) [id number] 16:58:00 Test Item Value Reference Range Interpretation Comments GLUBED (test code = 159 MG/DL 70-110 H Performe d by certified GLUBED) incubator operator at [facility] [id number] 11:58:00 Test Item Value Reference Range Interpretation Comments GLUBED (test code = 149 MG/DL 70-110 H Performe d by certified GLUBED) incubator operator at [facility] BASIC METABOLIC [id number] 08:00:00 Test Item Value Reference Range Interpretation [...] 9.9 mg/dL 8.0-10.5 N CA) CBC W/AUTO [id number] 07:08:00 Test Item Value Reference Range Interpretation [...] DIFF REQUIRED (test code NO = MDIFF) [id number] 05:21:00 Test Item Value Reference Range Interpretation Comments GLUBED (test code = 150 MG/DL 70-110 H Performe d by certified GLUBED) incubator operator at [facility] [id number] 21:13:00 Test Item Value Reference Range Interpretation Comments GLUBED (test code = 129 MG/DL 70-110 H Performe d by certified GLUBED) incubator operator at [facility] [id number] 16:48:00 Test Item Value Reference Range Interpretation Comments GLUBED (test code = 116 MG/DL 70-110 H Performe d by certified GLUBED) incubator operator at [facility] [id number] 12:18:00 Test Item Value Reference Range Interpretation Comments GLUBED (test code = 136 MG/DL 70-110 H Performe d by certified GLUBED) incubator operator at [facility] [id number] 12:18:00 Test Item Value Reference Range Interpretation Comments GLUBED (test code = 151 MG/DL 70-110 H Performe d by certified GLUBED) incubator operator at [facility] CBC W/AUTO [id number] 07:32:00 Test Item Value Reference Range Interpretation [...] (test code NO = MDIFF) BASIC METABOLIC [id number] 07:29:00 Test Item Value Reference Range Interpretation [...] code = 9.0 mg/dL 8.0-10.5 N CA) [id number] 05:19:00 Test Item Value Reference Range Interpretation Comments GLUBED (test code = 135 MG/DL 70-110 H Performe d by certified GLUBED) incubator operator at [facility] [id number] 20:31:00 Test Item Value Reference Range Interpretation Comments GLUBED (test code = 189 MG/DL 70-110 H Performe d by certified GLUBED) incubator operator at [facility] [id number] 17:41:00 Test Item Value Reference Range Interpretation Comments GLUBED (test code = 140 MG/DL 70-110 H Performe d by certified GLUBED) incubator operator at [facility] - CTA CHEST FOR [id number] 13:48:00 [facility] : 1960 Sex: M Name: ERNIE VANCE [facility] : 1960 Age/S: 60 / M [address] [place] [address] Blvd Unit #: [id number] Loc: [place] [address] Phys: Gina Gonzalez FLOOR SUPERVISOR Acct: [id number] Dis Date: Status: ADM IN PHONE #: [phone] Exam Date: 08/12/2020911 FAX #: [phone] Reason: CP, elevated D-dimer EXAMS: CPT CODE: [id number] [place] [address] P ROCEDURE: CTA CHEST INDICATION: CP, elevated [...] 1 Signed Report (CONTINUED) [facility] 1960 Age/S: 60 / M [address] [place] [address] Blvd Unit #: [id number] Loc: [place] [address] Phys: Gina Gonzalez NP Acct: [id number] Dis Date: Status: ADM IN PHONE #: [phone] Exam Date: 08/12/2020911 FAX #: [phone] Reason: CP, elevated D-dimer EXAMS: CPT CODE: [id number] [place] [address] <Continued> contrast enhancement. No acute abnormality demonstrated. MUSCULOSKELETAL: Healed median sternotomy. No acute skeletal abnormality. IMPRESSION: 1.Negative for pulmonary embolic disease within limitations noted. 2. Atherosclerosis. 3. Coronary arterial calcifications with prior coronary arterial stents and CABG. 4.Interstitial edema. No consolidation. 5. Small bilateral pleural effusions. SL: [id number] at 1348 Reported and signedby: Christiano Piña M.D. CC: Johnie Montanez MD; Gina Gonzalez FLOOR SUPERVISOR; Nika Martin MD Technologist:RT Jazmine(R)(CT) CTDI: DLP: Trnscb Date/Time: 08/12/2020 (1348) Ashley Orig Print D/T: S: 08/12/2020 (8167) PAGE 2 Signed [id number] 11:38:00 Test Item Value Reference Range Interpretation Comments GLUBED (test code = 146 MG/DL 70-110 H Performe d by certified GLUBED) incubator operator at [facility] CBC W/AUTO [id number] 09:17:00 Test Item Value Reference Range Interpretation [...] (test code NO = MDIFF) BASIC METABOLIC [id number] 08:28:00 Test Item Value Reference Range Interpretation [...] code = 8.3 mg/dL 8.0-10.5 N CA) [id number] 08:28:00 Test Item Value Reference Range Interpretation Comments PHOSPHOROUS (test code = PHOS) 3.6 MG/DL 2.5-4.9 N [id number] 08:28:00 Test Item Value Reference Range Interpretation Comments MAGNESIUM (test code = MAG) 1.94 mg/dL 1.80-2.40 N [id number] 07:16:00 Test Item Value Reference Range Interpretation Comments GLUBED (test code = 170 MG/DL 70-110 H Performe d by certified GLUBED) incubator operator at [facility] [id number] 07:16:00 Test Item Value Reference Range Interpretation Comments GLUBED (test code = 137 MG/DL 70-110 H Performe d by certified GLUBED) incubator operator at [facility] [id number] 17:01:00 Test Item Value Reference Range Interpretation Comments GLUBED (test code = 88 MG/DL 70-110 N Performe d by certified GLUBED) incubator operator at [facility] [id number] 16:56:00 Test Item Value Reference Range Interpretation Comments ACT-ISTAT (test code 186 SEC 74-137 H Perform ed by certified = ACTI) incubator operator at [facility] [id number] 15:03:00 Test Item Value Reference Range Interpretation Comments ACT-ISTAT (test code 235 SEC 74-137 H Perform ed by certified = ACTI) incubator operator at [facility] [id number] 11:33:00 Test Item Value Reference Range Interpretation Comments GLUBED (test code = 97 MG/DL 70-110 N Performe d by certified GLUBED) incubator operator at [facility] [id number] 06:54:00 Test Item Value Reference Range Interpretation Comments GLUBED (test code = 136 MG/DL 70-110 H Performe d by certified GLUBED) incubator operator at [facility] BASIC METABOLIC [id number] 06:00:00 Test Item Value Reference Range Interpretation [...] COMMENTS: To be done morning of Heart [id number] 06:00:00 Test Item Value Reference Range Interpretation Comments PHOSPHOROUS (test code = PHOS) 4.1 MG/DL 2.5-4.9 N COMMENTS: To be done morning of Heart [id number] 06:00:00 Test Item Value Reference Range Interpretation Comments MAGNESIUM (test code = MAG) 1.74 mg/dL 1.80-2.40 L COMMENTS: To be done morning of Heart CathTHROMBOPLASTIN TIME [id number] 05:55:00 Test Item Value Reference Range Interpretation Comments THROMBOPLASTIN TIME 37.9 Seconds 25.0-39.5 N Ther apeutic PARTIAL (test code = Range: 50.4 - 88.3 PTT) Seconds Effective 09/04/2018 CBC W/AUTO [id number] 05:44:00 Test Item Value Reference Range Interpretation [...] COMMENTS: To be done morning of Heart [id number] 05:44:00 Test Item Value Reference Range Interpretation Comments GLUBED (test code = 92 MG/DL 70-110 N Performe d by certified GLUBED) incubator operator at [facility] [id number] 17:22:00 Test Item Value Reference Range Interpretation Comments HGBA1C% (test code = HGBA1C%) 6.6 %A1C 4.8-6.0 H [id number] 17:17:00 Test Item Value Reference Range Interpretation Comments GLUBED (test code = 118 MG/DL 70-110 H Performe d by certified GLUBED) incubator operator at [facility] TSH REFLEX TO [id number] 15:37:00 Test Item Value Reference Range Interpretation Comments TSH REFLEX TO FT4 (test code = 3.19 IU/mL 0.42-5.47 N TSHREFLEX) [id number] 15:37:00 Test Item Value Reference Range Interpretation [...] y by method. COVID 19 Asymptomatic IH [id number] 11:35:00 Test Item Value Reference Range Interpretation Comments COVID 19 Asymptomatic Negative Negative A nega tive result is IH AG (test code = presumpti ve and should COVNONPUIAG) be confirmedwit h an FDA authorized mole cular assay, if neces tiffany forpatient jessie glover.A positive result does not rule out co-inf [...] y tests. COMMENTS: If not done this [id number] 11:31:00 Test Item Value Reference Range Interpretation [...] titative results may babak y by method. [id number] 11:28:00 Test Item Value Reference Range Interpretation Comments D-DIMER (test 1089 ng/mlFEU See_Comment HH Critical resu lt called to code = Rima GERMAN) G.LAB.JJ1 at 04 1808/10/20Nurse r ead back [...] to interpret this result as normal/abnormal . [id number] 10:48:00 Test Item Value Reference Range Interpretation Comments GLUBED (test code = 158 MG/DL 70-110 H Performe d by certified GLUBED) incubator operator at [facility] B-TYPE NATRIURETIC [id number] 08:19:00 Test Item Value Reference Range Interpretation Comments B-TYPE NATRIURETIC PEPTIDE (test 508.0 PG/ML 0-100 H code = BNP) BASIC METABOLIC [id number] 08:11:00 Test Item Value Reference Range Interpretation [...] 9.1 mg/dL 8.0-10.5 N CA) HEPATIC FUNCTION [id number] 08:11:00 Test Item Value Reference Range Interpretation [...] 174 IUnit/L 20-125 H code = ALKP) [id number] 08:11:00 Test Item Value Reference Range Interpretation Comments MAGNESIUM (test code = MAG) 1.80 mg/dL 1.80-2.40 N [id number] 08:11:00 Test Item Value Reference Range Interpretation [...] may babak y by method. BASIC METABOLIC [id number] 08:09:00 Test Item Value Reference Range Interpretation [...] code = CA) mg/dL 8.0-10.5 HEPATIC FUNCTION [id number] 08:09:00 Test Item Value Reference Range Interpretation Comments TOTAL PROTEIN (test code = PROT) g/dL 6.4-8.2 ALBUMIN (test code = ALB) g/dL 3.4-5.0 BILIRUBIN TOTAL (test code = BILT) mg/dL 0.0-1.0 BILIRUBIN DIRECT (test code = BILD) MG/DL 0.0-0.30 SGOT/AST (test code = AST) IUnit/L 15-37 SGPT/ALT (test code = ALT) IUnit/L 30-65 ALKALINE PHOSPHATASE TOTAL (test IUnit/L 20-125 code = ALKP) [id number] 08:09:00 Test Item Value Reference Range Interpretation Comments MAGNESIUM (test code = MAG) mg/dL 1.80-2.40 [id number] 08:09:00 Test Item Value Reference Range Interpretation [...] results may babak y by method. PROTHROMBIN [id number] 08:06:00 Test Item Value Reference Range Interpretation [...] o prevent recurre nt infarct). THROMBOPLASTIN TIME [id number] 08:06:00 Test Item Value Reference Range Interpretation Comments THROMBOPLASTIN TIME 44.5 Seconds 25.0-39.5 H Ther apeutic PARTIAL (test code = Range: 50.4 - 88.3 PTT) Seconds Effective 09/04/2018 CBC W/AUTO [id number] 07:58:00 Test Item Value Reference Range Interpretation [...] NO = MDIFF) - XR CHEST 1 [id number] 07:57:00 [facility] 1960 Sex: M FAX: Todd Jacobo MD [phone] [place]: St: REG FAX: Martínez Dash NP [phone] Name: ERNIE VANCE [facility] : 1960 Age/S: 60/M [address] [place] [address] Bl Unit #: [id number] Loc: [place] [address] Phys: Martínez Dash NP Acct: [id number] Dis Date: Status: REG ER PHONE #: [phone] Exam Date: 08/10/2020 0753 FAX #: [phone] Reason: Chest Pain EXAMS: CPT CODE: [id number] XR CHEST 1 V 30747 Chest single view 08/10/2020 HISTORY: Chest pain. Comparison is made to 05/21/2018 FINDINGS: Pacemaker and midline sternotomy wires are stable. The lungs are hypoinflated. No consolidation or pleural effusion is present. No vascular congestion or interstitial edema is present. Heart size is mildly enlarged. Aorta is unchanged. IMPRESSION: Hypoinflated lungs. No acute cardiopulmonary process. SL:[id number] at 0757 Reported and signed by: Arleth Kruse M.D. CC: Todd Jacobo MD; Martínez Dash NP Technologist: RT Ann(R) Trnscrd Date/Time/By: 08/10/2020 (075) : By: [email or web address] Orig Print D/T: S: 08/10/2020 (0800) PAGE 1 Signed ReportaPTT (for use with Heparin Drip) 2020-08-06 19:40:44 Test Item Value Reference Range Interpretation Comments APTT Patient (test code See_Comment HH [Au tomated message] = 3173-2) The system [employer] generated this result transmitted ref erence range: 26 - 36 Seconds. The reference range was not used to int erpret this result as normal/abnormal . Lab Interpretation (test Abnormal code = 80470-2) [facility] GLUCOSE (AUTOMATED)2020-08-06 14:27:45 Test Item Value Reference Range Interpretation Comments POCT GLU (test code = 8678629258) 104 mg/dL 70-110 Lab Interpretation (test code = Normal 33395-6) [facility] METABOLIC PANEL (NA, K, CL, CO2, GLUCOSE, BUN, CREATININE, CA)2020-08-06 11:09:24 Test Item Value Reference Range Interpretation Comments NA (test code = 131 mmol/L 135-145 L 5238645501) K (test code = 3.9 mmol/L 3.5-5.0 0517040855) CL (test code = 96 mmol/L 98-108 L 0708118929) CO2 TOTAL (test code = 27 mmol/L 23-31 3677085394) AGAP (test code = 2-16 1933141922) BUN (test code = 15 mg/dL 7-23 0099264506) GLUCOSE (test code = 104 mg/dL 70-110 6754961118) CREATININE (test code = 0.93 mg/dL 0.60-1.25 5133686670) CALCIUM (test code = 8.4 mg/dL 8.6-10.6 L 0034488205) eGFR Calculation mL/min/1.73m2 (Non-) (test code = 4548244437) eGFR Calculation mL/min/1.73m2 () (test code = 1884024139) DIANE (test code = DIANE) Association of [...] tests). Lab Interpretation Abnormal (test code = 42679-7) [facility] WITH [id number] 10:46:44 Test Item Value Reference Range Interpretation Comments WBC (test code = See_Comment [Automated 8690-2) message] The sy stem which generated this [...] (test code = 54.1 fL 38.5-51.6 H 61784-6) RDW-CV (test code = 17.3 % 12.1-15.4 H 788-0) PLT (test code = See_Comment [Automated 777-3) message] The sy stem which generated this result transmitted reference range : 150 - 328 10*3/ ?L. The reference r batsheva was not used to interpret this result as normal/abnormal . MPV (test code = 9.7 fL 9.8-13.0 L 84003-5) NRBC/100 WBC (test See_Comment [Automat ed code = 1183740925) message] The system which generated this result transmitted reference range : 0.0 - 10.0 /100 WBCs. The refer ence range was not u sed to interpret th is result as normal/abnormal . NRBC x10^3 (test code <0.01 See_Comment [Auto mated = 0053050217) message] The s ystem which generated this result transmitted reference range : 10*3/?L. The reference range was not used to interpret this result as normal/abnormal . GRAN MAT (NEUT) % 71.6 % (test code = 770-8) IMM GRAN % (test code 0.60 % = 6970187191) LYMPH % (test code = 13.3 % 736-9) MONO % (test code = 11.0 % 5905-5) EOS % (test code = 3.1 % 713-8) BASO % (test code = 0.4 % 706-2) GRAN MAT x10^3(ANC) 5.59 10*3/uL 1.99-6.95 (test code = 6151950609) IMM GRAN x10^3 (test 0.05 10*3/uL 0.00-0.06 code = 7417149036) LYMPH x10^3 (test code 1.04 10*3/uL 1.09-3.23 L = 731-0) MONO x10^3 (test code 0.86 10*3/uL 0.36-1.02 = 742-7) EOS x10^3 (test code = 0.24 10*3/uL 0.06-0.53 711-2) BASO x10^3 (test code 0.03 10*3/uL 0.01-0.09 = 704-7) Lab Interpretation Abnormal (test code = 66219-9) [facility] (for use with Heparin Drip)2020-08-06 03:15:26 Test Item Value Reference Range Interpretation Comments APTT Patient (test code See_Comment H [Au tomated message] = 3173-2) The system [employer] generated this result transmitted ref erence range: 26 - 36 Seconds. The reference range was not used to int erpret this result as normal/abnormal . Lab Interpretation (test Abnormal code = 86108-2) [facility] GLUCOSE (AUTOMATED)2020-08-06 02:27:22 Test Item Value Reference Range Interpretation Comments POCT GLU (test code = 5973237992) 136 mg/dL 70-110 H Lab Interpretation (test code = Abnormal 94202-2) [facility] GLUCOSE (AUTOMATED)2020-08-05 23:26:03 Test Item Value Reference Range Interpretation Comments POCT GLU (test code = 3570221101) 146 mg/dL 70-110 H Lab Interpretation (test code = Abnormal 87495-9) [facility] (for use with Heparin Drip)2020-08-05 19:15:55 Test Item Value Reference Range Interpretation Comments APTT Patient (test code See_Comment H [Au tomated message] = 3173-2) The system [employer] generated this result transmitted ref erence range: 26 - 36 Seconds. The reference range was not used to int erpret this result as normal/abnormal . Lab Interpretation (test Abnormal code = 20790-6) [facility] METABOLIC PANEL (NA, K, CL, CO2, GLUCOSE, BUN, CREATININE, CA)2020-08-05 05:43:08 Test Item Value Reference Range Interpretation Comments NA (test code = 134 mmol/L 135-145 L 3582899324) K (test code = 3.9 mmol/L 3.5-5.0 1837558697) CL (test code = 97 mmol/L 98-108 L 7146217237) CO2 TOTAL (test code = 28 mmol/L 23-31 2588417355) AGAP (test code = 2-16 0107224313) BUN (test code = 15 mg/dL 7-23 8038753850) GLUCOSE (test code = 148 mg/dL 70-110 H 7265579968) CREATININE (test code = 1.06 mg/dL 0.60-1.25 7176090792) CALCIUM (test code = 8.5 mg/dL 8.6-10.6 L 4513609037) eGFR Calculation mL/min/1.73m2 (Non-) (test code = 8095957859) eGFR Calculation mL/min/1.73m2 () (test code = 9273671923) DIANE (test code = DIANE) Association of [...] tests). Lab Interpretation Abnormal (test code = 01306-7) [facility] 05[facility]43:08 Test Item Value Reference Range Interpretation Comments MAGNESIUM (test code = 3065736992) 2.0 mg/dL 1.7-2.4 Lab Interpretation (test code = Normal 47899-4) [facility] Drip[facility]2020-08-05 05:31:27 Test Item Value Reference Range Interpretation Comments APTT Patient (test code See_Comment H [Au tomated message] = 3173-2) The system [employer] generated this result transmitted ref erence range: 26 - 36 Seconds. The reference range was not used to int erpret this result as normal/abnormal . Lab Interpretation (test Abnormal code = 67753-6) [facility] [id number] 05:24:44 Test Item Value Reference Range Interpretation Comments WBC (test code = See_Comment [Automated 4790-2) message] The sy stem which generated this result transmitted reference range : 4.20 - 10.70 10*3/?L. The reference range was not used to interpret this result as normal/abnormal . RBC (test code = See_Comment L [Automated 159-8) message] The sy stem which generated this [...] (test code = 54.1 fL 38.5-51.6 H 99335-5) RDW-CV (test code = 17.4 % 12.1-15.4 H 788-0) PLT (test code = See_Comment [Automated 777-3) message] The sy stem which generated this result transmitted reference range : 150 - 328 10*3/ ?L. The reference r batsheva was not used to interpret this result as normal/abnormal . MPV (test code = 9.6 fL 9.8-13.0 L 53021-5) NRBC/100 WBC (test See_Comment [Automat ed code = 6119484441) message] The system which generated this result transmitted reference range : 0.0 - 10.0 /100 WBCs. The refer ence range was not u sed to interpret th is result as normal/abnormal . NRBC x10^3 (test code <0.01 See_Comment [Auto mated = 4571190371) message] The s ystem which generated this result transmitted reference range : 10*3/?L. The reference range was not used to interpret this result as normal/abnormal . GRAN MAT (NEUT) % 70.3 % (test code = 770-8) IMM GRAN % (test code 0.60 % = 6599091120) LYMPH % (test code = 14.6 % 736-9) MONO % (test code = 12.5 % 5905-5) EOS % (test code = 1.7 % 713-8) BASO % (test code = 0.3 % 706-2) GRAN MAT x10^3(ANC) 6.11 10*3/uL 1.99-6.95 (test code = 9326517791) IMM GRAN x10^3 (test 0.05 10*3/uL 0.00-0.06 code = 3913333953) LYMPH x10^3 (test code 1.27 10*3/uL 1.09-3.23 = 731-0) MONO x10^3 (test code 1.09 10*3/uL 0.36-1.02 H = 742-7) EOS x10^3 (test code = 0.15 10*3/uL 0.06-0.53 711-2) BASO x10^3 (test code 0.03 10*3/uL 0.01-0.09 = 704-7) Lab Interpretation Abnormal (test code = 67249-4) [facility] GLUCOSE (AUTOMATED)2020-08-05 01:58:45 Test Item Value Reference Range Interpretation Comments POCT GLU (test code = 5670237452) 186 mg/dL 70-110 H Lab Interpretation (test code = Abnormal 74955-6) [facility] use with Heparin Drip[facility]2020-08-04 17:16:48 Test Item Value Reference Range Interpretation Comments APTT Patient (test code See_Comment H [Au tomated message] = 3173-2) The system [employer] generated this result transmitted ref erence range: 26 - 36 Seconds. The reference range was not used to int erpret this result as normal/abnormal . Lab Interpretation (test Abnormal code = 99371-3) [facility] GLUCOSE (AUTOMATED)2020-08-04 14:09:13 Test Item Value Reference Range Interpretation Comments POCT GLU (test code = 3749891754) 133 mg/dL 70-110 H Lab Interpretation (test code = Abnormal 97016-5) [facility] METABOLIC PANEL (NA, K, CL, CO2, GLUCOSE, BUN, CREATININE, CA)2020-08-04 10:34:01 Test Item Value Reference Range Interpretation Comments NA (test code = 135 mmol/L 135-145 1156404172) K (test code = 3.7 mmol/L 3.5-5.0 0580578735) CL (test code = 100 mmol/L 98-108 6005267531) CO2 TOTAL (test code = 30 mmol/L 23-31 5735690830) AGAP (test code = 2-16 3036400537) BUN (test code = 15 mg/dL 7-23 5175006031) GLUCOSE (test code = 119 mg/dL 70-110 H 8895098751) CREATININE (test code = 1.01 mg/dL 0.60-1.25 8151356768) CALCIUM (test code = 8.0 mg/dL 8.6-10.6 L 4975299344) eGFR Calculation mL/min/1.73m2 (Non-) (test code = 6030618489) eGFR Calculation mL/min/1.73m2 () (test code = 6623087958) DIANE (test code = DIANE) Association of [...] tests). Lab Interpretation Abnormal (test code = 09063-5) [facility] WITH [id number] 10:05:37 Test Item Value Reference Range Interpretation [...] (test code = 54.7 fL 38.5-51.6 H 42520-7) RDW-CV (test code = 17.3 % 12.1-15.4 H 788-0) PLT (test code = See_Comment H [Automated 777-3) message] The sy stem which generated this result transmitted reference range : 150 - 328 10*3/ ?L. The reference r batsheva was not used to interpret this result as normal/abnormal . MPV (test code = 9.8 fL 9.8-13.0 87643-6) NRBC/100 WBC (test See_Comment [Automat ed code = 6083512133) message] The system which generated this result transmitted reference range : 0.0 - 10.0 /100 WBCs. The refer ence range was not u sed to interpret th is result as normal/abnormal . NRBC x10^3 (test code <0.01 See_Comment [Auto mated = 4853635563) message] The s ystem which generated this result transmitted reference range : 10*3/?L. The reference range was not used to interpret this result as normal/abnormal . GRAN MAT (NEUT) % 77.8 % (test code = 770-8) IMM GRAN % (test code 0.20 % = 2079671263) LYMPH % (test code = 11.0 % 736-9) MONO % (test code = 9.9 % 5905-5) EOS % (test code = 0.8 % 713-8) BASO % (test code = 0.3 % 706-2) GRAN MAT x10^3(ANC) 6.90 10*3/uL 1.99-6.95 (test code = 9990762330) IMM GRAN x10^3 (test <0.03 0.00-0.06 code = 2455071667) LYMPH x10^3 (test code 0.98 10*3/uL 1.09-3.23 L = 731-0) MONO x10^3 (test code 0.88 10*3/uL 0.36-1.02 = 742-7) EOS x10^3 (test code = 0.07 10*3/uL 0.06-0.53 711-2) BASO x10^3 (test code 0.03 10*3/uL 0.01-0.09 = 704-7) Lab Interpretation Abnormal (test code = 11326-5) [facility] GLUCOSE (AUTOMATED)2020-08-04 03:54:53 Test Item Value Reference Range Interpretation Comments POCT GLU (test code = 5073238587) 187 mg/dL 70-110 H Lab Interpretation (test code = Abnormal 54849-4) [facility] use with [facility]arin Drip[facility]2020-08-04 02:12:07 Test Item Value Reference Range Interpretation Comments APTT Patient (test code See_Comment H [Au tomated message] = 3173-2) The system [employer] generated this result transmitted ref erence range: 26 - 36 Seconds. The reference range was not used to int erpret this result as normal/abnormal . Lab Interpretation (test Abnormal code = 66220-8) [facility] GLUCOSE (AUTOMATED)2020-08-03 22:18:17 Test Item Value Reference Range Interpretation Comments POCT GLU (test code = 2622815800) 125 mg/dL 70-110 H Lab Interpretation (test code = Abnormal 40834-0) [facility] GLUCOSE (AUTOMATED)2020-08-03 18:00:55 Test Item Value Reference Range Interpretation Comments POCT GLU (test code = 4727276400) 119 mg/dL 70-110 H Lab Interpretation (test code = Abnormal 92930-7) [facility] Screen - ONCE [id number] 14:31:37 Test Item Value Reference Range Interpretation Comments ABO & RH (test code O POSITIVE Performe d at [facility] = 20) Laboratory Serv [facility] Blood [facility] [facility] s [address]Cyhw Free: [phone] A No. [id number] IAT (test code = Negative Performed a t [facility] 1185) Laboratory Serv [facility] Blood [facility]3 [address] [facility] s [address]Vieu Free: [phone] A No. [id number] [facility]OL[facility] (NA, K, CL, CO2, GLUCOSE, BUN, CREATININE, CA)2020-08-03 08:05:46 Test Item Value Reference Range Interpretation Comments NA (test code = 136 mmol/L 135-145 2585002432) K (test code = 3.7 mmol/L 3.5-5.0 1367841076) CL (test code = 100 mmol/L 98-108 1318273260) CO2 TOTAL (test code = 30 mmol/L 23-31 0211839279) AGAP (test code = 2-16 4203492407) BUN (test code = 16 mg/dL 7-23 0098712474) GLUCOSE (test code = 101 mg/dL 70-110 0391896954) CREATININE (test code = 1.07 mg/dL 0.60-1.25 0325211366) CALCIUM (test code = 8.2 mg/dL 8.6-10.6 L 0230283520) eGFR Calculation mL/min/1.73m2 (Non-) (test code = 0213774499) eGFR Calculation mL/min/1.73m2 () (test code = 3663559151) DIANE (test code = DIANE) Association of [...] tests). Lab Interpretation Abnormal (test code = 23332-4) [facility]for use with Heparin Drip)2020-08-03 07:48:47 Test Item Value Reference Range Interpretation Comments APTT Patient (test code See_Comment H [Au tomated message] = 3173-2) The system [employer] h generated this result transmitted ref erence range: 26 - 36 Seconds. The reference range was not used to int erpret this result as normal/abnormal . Lab Interpretation (test Abnormal code = 37520-3) [facility] WITH [id number] 07:41:45 Test Item Value Reference Range Interpretation Comments WBC (test code = See_Comment [Automated 3290-2) message] The sy stem which generated this result transmitted reference range : 4.20 - 10.70 10*3/?L. The reference range was not used to interpret this result as normal/abnormal . RBC (test code = See_Comment L [Automated 9-8) message] The sy stem which generated this [...] (test code = 56.3 fL 38.5-51.6 H 54744-7) RDW-CV (test code = 17.4 % 12.1-15.4 H 788-0) PLT (test code = See_Comment [Automated 777-3) message] The sy stem which generated this result transmitted reference range : 150 - 328 10*3/ ?L. The reference r batsheva was not used to interpret this result as normal/abnormal . MPV (test code = 9.3 fL 9.8-13.0 L 73300-9) NRBC/100 WBC (test See_Comment [Automat ed code = 6161990302) message] The system which generated this result transmitted reference range : 0.0 - 10.0 /100 WBCs. The refer ence range was not u sed to interpret th is result as normal/abnormal . NRBC x10^3 (test code <0.01 See_Comment [Auto mated = 1786999136) message] The s ystem which generated this result transmitted reference range : 10*3/?L. The reference range was not used to interpret this result as normal/abnormal . GRAN MAT (NEUT) % 64.1 % (test code = 770-8) IMM GRAN % (test code 0.40 % = 5083311369) LYMPH % (test code = 19.4 % 736-9) MONO % (test code = 10.7 % 5905-5) EOS % (test code = 4.9 % 713-8) BASO % (test code = 0.5 % 706-2) GRAN MAT x10^3(ANC) 4.74 10*3/uL 1.99-6.95 (test code = 4847354300) IMM GRAN x10^3 (test 0.03 10*3/uL 0.00-0.06 code = 2405097959) LYMPH x10^3 (test code 1.43 10*3/uL 1.09-3.23 = 731-0) MONO x10^3 (test code 0.79 10*3/uL 0.36-1.02 = 742-7) EOS x10^3 (test code = 0.36 10*3/uL 0.06-0.53 711-2) BASO x10^3 (test code 0.04 10*3/uL 0.01-0.09 = 704-7) Lab Interpretation Abnormal (test code = 45055-6) [facility] GLUCOSE (AUTOMATED)2020-08-03 02:33:23 Test Item Value Reference Range Interpretation Comments POCT GLU (test code = 6204006350) 184 mg/dL 70-110 H Lab Interpretation (test code = Abnormal 53368-9) [facility] GLUCOSE (AUTOMATED)2020-08-02 23:07:40 Test Item Value Reference Range Interpretation Comments POCT GLU (test code = 3090616164) 126 mg/dL 70-110 H Lab Interpretation (test code = Abnormal 98694-7) [facility]ID [facility]2020-08-02 21:12:04 Test Item Value Reference Range Interpretation Comments SARS-CoV-2 Rapid ID NOW Not Detected Not Detected (test code = 91542-5) DIANE (test code = DIANE) ID NOW COVID-19 Assay is an isothermal nucleic acid amplification test intended for the qualitative detection of nucleic acid from SARS-CoV-2 viral RNA in nasopharyngeal ([employer]) specimens. It is used under Emergency Use [...] indicated. Lab Interpretation Normal (test code = 51812-5) [facility]for use with Heparin Drip)2020-08-02 19:14:29 Test Item Value Reference Range Interpretation Comments APTT Patient (test code See_Comment H [Au tomated message] = 3173-2) The system [employer] generated this result transmitted ref erence range: 26 - 36 Seconds. The reference range was not used to int erpret this result as normal/abnormal . Lab Interpretation (test Abnormal code = 56174-4) [facility] GLUCOSE (AUTOMATED)2020-08-02 18:40:15 Test Item Value Reference Range Interpretation Comments POCT GLU (test code = 5894472219) 131 mg/dL 70-110 H Lab Interpretation (test code = Abnormal 20306-6) [facility] GLUCOSE (AUTOMATED)2020-08-02 13:57:10 Test Item Value Reference Range Interpretation Comments POCT GLU (test code = 1617251187) 80 mg/dL 70-110 Lab Interpretation (test code = Normal 14523-5) [facility] (NA, K, CL, CO2, GLUCOSE, BUN, CREATININE, CA)2020-08-02 12:02:41 Test Item Value Reference Range Interpretation Comments NA (test code = 136 mmol/L 135-145 4577309121) K (test code = 3.8 mmol/L 3.5-5.0 5643663578) CL (test code = 98 mmol/L 98-108 1196302585) CO2 TOTAL (test code = 32 mmol/L 23-31 H 4015527873) AGAP (test code = 2-16 7547248149) BUN (test code = 17 mg/dL 7-23 2492146465) GLUCOSE (test code = 63 mg/dL 70-110 L 4183218316) CREATININE (test code = 1.15 mg/dL 0.60-1.25 9554439266) CALCIUM (test code = 8.4 mg/dL 8.6-10.6 L 7107505891) eGFR Calculation mL/min/1.73m2 (Non-) (test code = 3615634610) eGFR Calculation mL/min/1.73m2 () (test code = 9325779821) DIANE (test code = DIANE) Association of [...] tests). Lab Interpretation Abnormal (test code = 28328-6) [facility] Drip[facility]2020-08-02 11:57:00 Test Item Value Reference Range Interpretation Comments APTT Patient (test code See_Comment H [Au tomated message] = 3173-2) The system [employer] generated this result transmitted ref erence range: 26 - 36 Seconds. The reference range was not used to int erpret this result as normal/abnormal . Lab Interpretation (test Abnormal code = 20124-6) [facility] WITH [id number] 11:39:22 Test Item Value Reference Range Interpretation [...] (test code = 55.2 fL 38.5-51.6 H 61103-3) RDW-CV (test code = 17.5 % 12.1-15.4 H 788-0) PLT (test code = See_Comment H [Automated 777-3) message] The sy stem which generated this result transmitted reference range : 150 - 328 10*3/ ?L. The reference r batsheva was not used to interpret this result as normal/abnormal . MPV (test code = 10.0 fL 9.8-13.0 54493-6) NRBC/100 WBC (test See_Comment [Automat ed code = 8999916207) message] The system which generated this result transmitted reference range : 0.0 - 10.0 /100 WBCs. The refer ence range was not u sed to interpret th is result as normal/abnormal . NRBC x10^3 (test code <0.01 See_Comment [Auto mated = 1485276398) message] The s ystem which generated this result transmitted reference range : 10*3/?L. The reference range was not used to interpret this result as normal/abnormal . GRAN MAT (NEUT) % 62.8 % (test code = 770-8) IMM GRAN % (test code 0.10 % = 9224378076) LYMPH % (test code = 20.7 % 736-9) MONO % (test code = 10.6 % 5905-5) EOS % (test code = 5.4 % 713-8) BASO % (test code = 0.4 % 706-2) GRAN MAT x10^3(ANC) 4.98 10*3/uL 1.99-6.95 (test code = 9574513097) IMM GRAN x10^3 (test <0.03 0.00-0.06 code = 3967062307) LYMPH x10^3 (test code 1.64 10*3/uL 1.09-3.23 = 731-0) MONO x10^3 (test code 0.84 10*3/uL 0.36-1.02 = 742-7) EOS x10^3 (test code = 0.43 10*3/uL 0.06-0.53 711-2) BASO x10^3 (test code 0.03 10*3/uL 0.01-0.09 = 704-7) Lab Interpretation Abnormal (test code = 72189-7) [facility] (for use with Heparin Drip)2020-08-02 06:27:34 Test Item Value Reference Range Interpretation Comments APTT Patient (test code See_Comment H [Au tomated message] = 3173-2) The system [employer] generated this result transmitted ref erence range: 26 - 36 Seconds. The reference range was not used to int erpret this result as normal/abnormal . Lab Interpretation (test Abnormal code = 16053-7) [facility] GLUCOSE (AUTOMATED)2020-08-02 01:46:02 Test Item Value Reference Range Interpretation Comments POCT GLU (test code = 0501281768) 227 mg/dL 70-110 H Lab Interpretation (test code = Abnormal 58425-8) [facility] (for use with Heparin Drip)2020-08-01 20:50:05 Test Item Value Reference Range Interpretation Comments APTT Patient (test code See_Comment H [Au tomated message] = 3173-2) The system [employer] generated this result transmitted ref erence range: 26 - 36 Seconds. The reference range was not used to int erpret this result as normal/abnormal . Lab Interpretation (test Abnormal code = 10899-3) [facility] GLUCOSE (AUTOMATED)2020-08-01 14:54:14 Test Item Value Reference Range Interpretation Comments POCT GLU (test code = 3520792563) 96 mg/dL 70-110 Lab Interpretation (test code = Normal 40209-1) [facility] use [facility]arin Drip[facility]2020-08-01 11:28:39 Test Item Value Reference Range Interpretation Comments APTT Patient (test code >150 See_Comment HH [Au tomated message] = 6003-2) The system [employer] generated this result transmitted ref erence range: 26 - 36 Seconds. The reference range was not used to int erpret this result as normal/abnormal . Lab Interpretation (test Abnormal code = 37825-1) [facility] METABOLIC PANEL (NA, K, CL, CO2, GLUCOSE, BUN, CREATININE, CA)2020-08-01 11:11:41 Test Item Value Reference Range Interpretation Comments NA (test code = 137 mmol/L 135-145 1665187217) K (test code = 3.7 mmol/L 3.5-5.0 4442042859) CL (test code = 100 mmol/L 98-108 2850839858) CO2 TOTAL (test code = 30 mmol/L 23-31 7988423898) AGAP (test code = 2-16 3625666412) BUN (test code = 17 mg/dL 7-23 8181097663) GLUCOSE (test code = 96 mg/dL 70-110 3632488981) CREATININE (test code = 1.09 mg/dL 0.60-1.25 7445885312) CALCIUM (test code = 8.0 mg/dL 8.6-10.6 L 7764192634) eGFR Calculation mL/min/1.73m2 (Non-) (test code = 8478763464) eGFR Calculation mL/min/1.73m2 () (test code = 1556616793) DIANE (test code = DIANE) Association of [...] tests). Lab Interpretation Abnormal (test code = 41688-2) [facility] WITH [id number] 11:04:41 Test Item Value Reference Range Interpretation Comments WBC (test code = See_Comment [Automated 6990-2) message] The sy stem which generated this result transmitted reference range : 4.20 - 10.70 10*3/?L. The reference range was not used to interpret this result as normal/abnormal . RBC (test code = See_Comment L [Automated 699-8) message] The sy stem which generated this [...] (test code = 54.6 fL 38.5-51.6 H 43877-6) RDW-CV (test code = 17.3 % 12.1-15.4 H 788-0) PLT (test code = See_Comment H [Automated 777-3) message] The sy stem which generated this result transmitted reference range : 150 - 328 10*3/ ?L. The reference r batsheva was not used to interpret this result as normal/abnormal . MPV (test code = 10.0 fL 9.8-13.0 95569-0) NRBC/100 WBC (test See_Comment [Automat ed code = 3586181763) message] The system which generated this result transmitted reference range : 0.0 - 10.0 /100 WBCs. The refer ence range was not u sed to interpret th is result as normal/abnormal . NRBC x10^3 (test code <0.01 See_Comment [Auto mated = 6064731348) message] The s ystem which generated this result transmitted reference range : 10*3/?L. The reference range was not used to interpret this result as normal/abnormal . GRAN MAT (NEUT) % 61.0 % (test code = 770-8) IMM GRAN % (test code 0.30 % = 9515340590) LYMPH % (test code = 21.7 % 736-9) MONO % (test code = 9.9 % 5905-5) EOS % (test code = 6.3 % 713-8) BASO % (test code = 0.8 % 706-2) GRAN MAT x10^3(ANC) 4.64 10*3/uL 1.99-6.95 (test code = 8150698175) IMM GRAN x10^3 (test <0.03 0.00-0.06 code = 5673775738) LYMPH x10^3 (test code 1.65 10*3/uL 1.09-3.23 = 731-0) MONO x10^3 (test code 0.75 10*3/uL 0.36-1.02 = 742-7) EOS x10^3 (test code = 0.48 10*3/uL 0.06-0.53 711-2) BASO x10^3 (test code 0.06 10*3/uL 0.01-0.09 = 704-7) Lab Interpretation Abnormal (test code = 62737-5) [facility] GLUCOSE (AUTOMATED)2020-08-01 02:29:39 Test Item Value Reference Range Interpretation Comments POCT GLU (test code = 1052968160) 111 mg/dL 70-110 H Lab Interpretation (test code = Abnormal 66674-6) [facility]arin Drip[facility]2020-07-31 23:24:55 Test Item Value Reference Range Interpretation Comments APTT Patient (test code See_Comment H [Au tomated message] = 3173-2) The system [employer] generated this result transmitted ref erence range: 26 - 36 Seconds. The reference range was not used to int erpret this result as normal/abnormal . Lab Interpretation (test Abnormal code = 87765-3) [facility] GLUCOSE (AUTOMATED)2020-07-31 23:15:24 Test Item Value Reference Range Interpretation Comments POCT GLU (test code = 4041408089) 182 mg/dL 70-110 H Lab Interpretation (test code = Abnormal 99932-8) [facility] GLUCOSE (AUTOMATED)2020-07-31 19:13:54 Test Item Value Reference Range Interpretation Comments POCT GLU (test code = 0006482393) 90 mg/dL 70-110 Lab Interpretation (test code = Normal 62946-1) [facility] GLUCOSE (AUTOMATED)2020-07-31 14:14:20 Test Item Value Reference Range Interpretation Comments POCT GLU (test code = 8473631814) 86 mg/dL 70-110 Lab Interpretation (test code = Normal 18024-6) [facility] (00198)2020-07-31 13:32:03 Test Item Value Reference Range Interpretation Comments NA (test code = 137 mmol/L 135-145 4792322363) K (test code = 3.5 mmol/L 3.5-5.0 2327266718) CL (test code = 100 mmol/L 98-108 9460692970) CO2 TOTAL (test code = 31 mmol/L 23-31 2939547629) AGAP (test code = 2-16 5350569077) BUN (test code = 16 mg/dL 7-23 1654665661) GLUCOSE (test code = 84 mg/dL 70-110 2172295298) CREATININE (test code = 1.10 mg/dL 0.60-1.25 7826594839) TOTAL BILI (test code = 0.3 mg/dL 0.1-1.0 7307779509) CALCIUM (test code = 8.2 mg/dL 8.6-10.6 L 8254947795) T PROTEIN (test code = 6.6 g/dL 6.3-8.2 6421416118) ALBUMIN (test code = 3.3 g/dL 3.5-5.0 L 9792849626) ALK PHOS (test code = 236 U/L 34-122 H 9690018354) ALTv (test code = 17 U/L 5-50 1742-6) AST(SGOT) (test code = 49 U/L 13-40 H 0237840856) eGFR Calculation mL/min/1.73m2 (Non-) (test code = 3767694421) eGFR Calculation mL/min/1.73m2 () (test code = 4606019606) DIANE (test code = DIANE) Association of [...] tests). Lab Interpretation Abnormal (test code = 27134-8) [facility] use with Heparin Drip[facility]2020-07-31 12:49:19 Test Item Value Reference Range Interpretation Comments APTT Patient (test code See_Comment H [Au tomated message] = 3173-2) The system [employer] generated this result transmitted ref erence range: 26 - 36 Seconds. The reference range was not used to int erpret this result as normal/abnormal . Lab Interpretation (test Abnormal code = 08563-7) [facility] TexasPROTHROMBIN [facility] / [id number] 12:49:19 Test Item Value Reference Range Interpretation Comments PROTIME PATIENT (test See_Comment H [Auto mated message] code = 5964-2) The system [employer] [place] generated this result transmitted ref erence range: 10.1 - 1 2.6 Seconds. The reference range was not used to int erpret this result as normal/abnormal . INR (test code = 6301-6) Nor mal INR <1.1; Warfarin Therap eutic range 2.0 to 3. 0 or 2.5 to 3.5, dep ending upon the indica tions. Lab Interpretation (test Abnormal code = 81465-9) [facility]CBC WITH [id number] 12:44:35 Test Item Value Reference Range Interpretation Comments WBC (test code = See_Comment [Automated 5790-2) message] The sy stem which generated this result transmitted reference range : 4.20 - 10.70 10*3/?L. The reference range was not used to interpret this result as normal/abnormal . RBC (test code = See_Comment L [Automated 279-8) message] The sy stem which generated this [...] (test code = 52.8 fL 38.5-51.6 H 64024-5) RDW-CV (test code = 17.4 % 12.1-15.4 H 788-0) PLT (test code = See_Comment H [Automated 777-3) message] The sy stem which generated this result transmitted reference range : 150 - 328 10*3/ ?L. The reference r batsheva was not used to interpret this result as normal/abnormal . MPV (test code = 9.1 fL 9.8-13.0 L 65295-6) NRBC/100 WBC (test See_Comment [Automat ed code = 6342226899) message] The system which generated this result transmitted reference range : 0.0 - 10.0 /100 WBCs. The refer ence range was not u sed to interpret th is result as normal/abnormal . NRBC x10^3 (test code <0.01 See_Comment [Auto mated = 5449489626) message] The s ystem which generated this result transmitted reference range : 10*3/?L. The reference range was not used to interpret this result as normal/abnormal . GRAN MAT (NEUT) % 59.6 % (test code = 770-8) IMM GRAN % (test code 0.40 % = 0264697701) LYMPH % (test code = 23.2 % 736-9) MONO % (test code = 9.9 % 5905-5) EOS % (test code = 6.4 % 713-8) BASO % (test code = 0.5 % 706-2) GRAN MAT x10^3(ANC) 4.56 10*3/uL 1.99-6.95 (test code = 4203891660) IMM GRAN x10^3 (test 0.03 10*3/uL 0.00-0.06 code = 5153122514) LYMPH x10^3 (test code 1.78 10*3/uL 1.09-3.23 = 731-0) MONO x10^3 (test code 0.76 10*3/uL 0.36-1.02 = 742-7) EOS x10^3 (test code = 0.49 10*3/uL 0.06-0.53 711-2) BASO x10^3 (test code 0.04 10*3/uL 0.01-0.09 = 704-7) Lab Interpretation Abnormal (test code = 57986-7) [facility] GLUCOSE (AUTOMATED)2020-07-31 02:13:25 Test Item Value Reference Range Interpretation Comments POCT GLU (test code = 0642972553) 175 mg/dL 70-110 H Lab Interpretation (test code = Abnormal 93789-0) [facility] GLUCOSE (AUTOMATED)2020-07-30 22:40:42 Test Item Value Reference Range Interpretation Comments POCT GLU (test code = 1881164535) 130 mg/dL 70-110 H Lab Interpretation (test code = Abnormal 06955-6) [facility] [id number] 20:55:18 Test Item Value Reference Range Interpretation Comments NT-proBNP (test code 3270 pg/mL See_Comment H [Autom ated = 0133249513) message] The system which generated this result transmitted reference range : <=125. The reference range was not used to interpret this result as normal/abnormal . DIANE (test code = DIANE) Biotin has been reported to cause a negative bias, interpret results relative to patient's use of biotin. Lab Interpretation Abnormal (test code = 40114-7) [facility] GLUCOSE (AUTOMATED)2020-07-30 17:53:57 Test Item Value Reference Range Interpretation Comments POCT GLU (test code = 0350352206) 106 mg/dL 70-110 Lab Interpretation (test code = Normal 82945-7) [facility] GLUCOSE (AUTOMATED)2020-07-30 14:12:30 Test Item Value Reference Range Interpretation Comments POCT GLU (test code = 8501434598) 98 mg/dL 70-110 Lab Interpretation (test code = Normal 19402-8) [facility] Basic Metabolic Panel (NA, K, CL, CO2, GLUCOSE, BUN, CREATININE, CA)2020-07-30 12:54:25 Test Item Value Reference Range Interpretation Comments NA (test code = 140 mmol/L 135-145 2424743927) K (test code = 3.5 mmol/L 3.5-5.0 3621313444) CL (test code = 102 mmol/L 98-108 8661309457) CO2 TOTAL (test code = 30 mmol/L 23-31 9348411341) AGAP (test code = 2-16 0908563073) BUN (test code = 13 mg/dL 7-23 9950314319) GLUCOSE (test code = 78 mg/dL 70-110 5731821305) CREATININE (test code = 0.96 mg/dL 0.60-1.25 7393610778) CALCIUM (test code = 8.4 mg/dL 8.6-10.6 L 5136107358) eGFR Calculation mL/min/1.73m2 (Non-) (test code = 9856254952) eGFR Calculation mL/min/1.73m2 () (test code = 2918936359) DIANE (test code = DIANE) Association of [...] tests). Lab Interpretation Abnormal (test code = 26921-9) [facility] CBC with [id number] 12:52:48 Test Item Value Reference Range Interpretation [...] RDW-SD (test code = 50.4 fL 38.5-51.6 38615-3) RDW-CV (test code = 16.7 % 12.1-15.4 H 788-0) PLT (test code = See_Comment H [Automated 777-3) message] The sy stem which generated this result transmitted reference range : 150 - 328 10*3/ ?L. The reference r batsheva was not used to interpret this result as normal/abnormal . MPV (test code = 9.6 fL 9.8-13.0 L 09582-5) NRBC/100 WBC (test See_Comment [Automat ed code = 6345421183) message] The system which generated this result transmitted reference range : 0.0 - 10.0 /100 WBCs. The refer ence range was not u sed to interpret th is result as normal/abnormal . NRBC x10^3 (test code <0.01 See_Comment [Auto mated = 1723540278) message] The s ystem which generated this result transmitted reference range : 10*3/?L. The reference range was not used to interpret this result as normal/abnormal . GRAN MAT (NEUT) % 69.8 % (test code = 770-8) IMM GRAN % (test code 0.40 % = 9065655164) LYMPH % (test code = 16.3 % 736-9) MONO % (test code = 8.4 % 5905-5) EOS % (test code = 4.6 % 713-8) BASO % (test code = 0.5 % 706-2) GRAN MAT x10^3(ANC) 5.62 10*3/uL 1.99-6.95 (test code = 5900022453) IMM GRAN x10^3 (test 0.03 10*3/uL 0.00-0.06 code = 0732657910) LYMPH x10^3 (test code 1.31 10*3/uL 1.09-3.23 = 731-0) MONO x10^3 (test code 0.68 10*3/uL 0.36-1.02 = 742-7) EOS x10^3 (test code = 0.37 10*3/uL 0.06-0.53 711-2) BASO x10^3 (test code 0.04 10*3/uL 0.01-0.09 = 704-7) Lab Interpretation Abnormal (test code = 18732-7) [facility] GLUCOSE (AUTOMATED)2020-07-29 22:41:49 Test Item Value Reference Range Interpretation Comments POCT GLU (test code = 8738790593) 97 mg/dL 70-110 Lab Interpretation (test code = Normal 38720-2) [facility] GLUCOSE (AUTOMATED)2020-07-29 17:34:32 Test Item Value Reference Range Interpretation Comments POCT GLU (test code = 4167470775) 148 mg/dL 70-110 H Lab Interpretation (test code = Abnormal 44414-9) [facility] GLUCOSE (AUTOMATED)2020-07-29 14:03:27 Test Item Value Reference Range Interpretation Comments POCT GLU (test code = 2272776101) 96 mg/dL 70-110 Lab Interpretation (test code = Normal 23067-2) [facility] Basic Metabolic Panel (NA, K, CL, CO2, GLUCOSE, BUN, CREATININE, CA)2020-07-29 11:44:04 Test Item Value Reference Range Interpretation Comments NA (test code = 139 mmol/L 135-145 3930674406) K (test code = 3.8 mmol/L 3.5-5.0 1745094324) CL (test code = 105 mmol/L 98-108 1257829337) CO2 TOTAL (test code = 26 mmol/L 23-31 7389294795) AGAP (test code = 2-16 8574847599) BUN (test code = 14 mg/dL 7-23 2466792483) GLUCOSE (test code = 74 mg/dL 70-110 3299290181) CREATININE (test code = 0.90 mg/dL 0.60-1.25 2126523334) CALCIUM (test code = 8.3 mg/dL 8.6-10.6 L 9355015811) eGFR Calculation mL/min/1.73m2 (Non-) (test code = 2527126213) eGFR Calculation mL/min/1.73m2 () (test code = 5620358180) DIANE (test code = DIANE) Association of [...] tests). Lab Interpretation Abnormal (test code = 08229-4) [facility] CBC with [id number] 10:27:53 Test Item Value Reference Range Interpretation [...] RDW-SD (test code = 48.8 fL 38.5-51.6 86690-6) RDW-CV (test code = 16.6 % 12.1-15.4 H 788-0) PLT (test code = See_Comment H [Automated 777-3) message] The sy stem which generated this result transmitted reference range : 150 - 328 10*3/ ?L. The reference r batsheva was not used to interpret this result as normal/abnormal . MPV (test code = 9.8 fL 9.8-13.0 57639-0) NRBC/100 WBC (test See_Comment [Automat ed code = 6522865484) message] The system which generated this result transmitted reference range : 0.0 - 10.0 /100 WBCs. The refer ence range was not u sed to interpret th is result as normal/abnormal . NRBC x10^3 (test code <0.01 See_Comment [Auto mated = 5750192754) message] The s ystem which generated this result transmitted reference range : 10*3/?L. The reference range was not used to interpret this result as normal/abnormal . GRAN MAT (NEUT) % 73.4 % (test code = 770-8) IMM GRAN % (test code 0.30 % = 4551969409) LYMPH % (test code = 14.8 % 736-9) MONO % (test code = 7.6 % 5905-5) EOS % (test code = 3.5 % 713-8) BASO % (test code = 0.4 % 706-2) GRAN MAT x10^3(ANC) 5.80 10*3/uL 1.99-6.95 (test code = 0991463085) IMM GRAN x10^3 (test <0.03 0.00-0.06 code = 8992238698) LYMPH x10^3 (test code 1.17 10*3/uL 1.09-3.23 = 731-0) MONO x10^3 (test code 0.60 10*3/uL 0.36-1.02 = 742-7) EOS x10^3 (test code = 0.28 10*3/uL 0.06-0.53 711-2) BASO x10^3 (test code 0.03 10*3/uL 0.01-0.09 = 704-7) Lab Interpretation Abnormal (test code = 38908-5) [facility] COVID [id number] 03:40:47COVID DMT InterpretationInterpretation/Recommendations: Molecular NAAT Tests for [...] COVID-19 testing the patient has had at [facility], including molecular NAAT testing (more commonly known as PCR testing and Rapid ID Now testing) and antibody testing. It does not take into account any testing that a patient has had outside of the [facility] medical record. [facility] LABORATORY SERVICESCOVID Resu [id number] Rapid ID NOW (no units) ? ? [...] ? ? 09/17/2019 ? Not Detected ? [facility] LABORATORY SERVICES [facility] GLUCOSE (AUTOMATED)2020-07-29 02:28:01 Test Item Value Reference Range Interpretation Comments POCT GLU (test code = 5336980221) 94 mg/dL 70-110 Lab Interpretation (test code = Normal 04129-1) [facility] GLUCOSE (AUTOMATED)2020-07-28 22:47:00 Test Item Value Reference Range Interpretation Comments POCT GLU (test code = 6057373382) 96 mg/dL 70-110 Lab Interpretation (test code = Normal 80913-2) [facility] GLUCOSE (AUTOMATED)2020-07-28 18:15:16 Test Item Value Reference Range Interpretation Comments POCT GLU (test code = 1384341207) 126 mg/dL 70-110 H Lab Interpretation (test code = Abnormal 89230-8) [facility]TR[facility] [id number] 15:30:53 Test Item Value Reference Range Interpretation Comments TROPONIN I (test 0.027 ng/mL See_Comment [Automated code = 3017096515) message] The system which generated this result [...] ? Lab Interpretation Normal (test code = 16999-5) [facility] Basic Metabolic Panel (NA, K, CL, CO2, GLUCOSE, BUN, CREATININE, CA)2020-07-28 15:10:53 Test Item Value Reference Range Interpretation Comments NA (test code = 141 mmol/L 135-145 4447855019) K (test code = 3.6 mmol/L 3.5-5.0 3921987260) CL (test code = 107 mmol/L 98-108 8238434599) CO2 TOTAL (test code = 25 mmol/L 23-31 6814027945) AGAP (test code = 2-16 1821018889) BUN (test code = 14 mg/dL 7-23 0332202766) GLUCOSE (test code = 170 mg/dL 70-110 H 6814861065) CREATININE (test code = 1.01 mg/dL 0.60-1.25 6325468354) CALCIUM (test code = 8.6 mg/dL 8.6-10.6 4952026545) eGFR Calculation mL/min/1.73m2 (Non-) (test code = 0339854685) eGFR Calculation mL/min/1.73m2 () (test code = 8831090857) DIANE (test code = DIANE) Association of [...] tests). Lab Interpretation Abnormal (test code = 69187-6) [facility] [id number] 13:37:24 Test Item Value Reference Range Interpretation Comments NT-proBNP (test code 3880 pg/mL See_Comment H [Autom ated = 5710225699) message] The system which generated this result transmitted reference range : <=125. The reference range was not used to interpret this result as normal/abnormal . DIANE (test code = DIANE) Biotin has been reported to cause a negative bias, interpret results relative to patient's use of biotin. Lab Interpretation Abnormal (test code = 34880-5) [facility]2020[facility]-28 13:25:27 Test Item Value Reference Range Interpretation Comments POCT GLU (test code = 9766509512) 140 mg/dL 70-110 H Lab Interpretation (test code = Abnormal 80668-4) [facility] CBC with [id number] 12:38:02 Test Item Value Reference Range Interpretation Comments WBC (test code = See_Comment [Automated 9490-2) message] The sy stem which generated this result transmitted reference range : 4.20 - 10.70 10*3/?L. The reference range was not used to interpret this result as normal/abnormal . RBC (test code = See_Comment L [Automated 879-8) message] The sy stem which generated this [...] RDW-SD (test code = 49.2 fL 38.5-51.6 98119-2) RDW-CV (test code = 16.9 % 12.1-15.4 H 788-0) PLT (test code = See_Comment H [Automated 777-3) message] The sy stem which generated this result transmitted reference range : 150 - 328 10*3/ ?L. The reference r batsheva was not used to interpret this result as normal/abnormal . MPV (test code = 9.8 fL 9.8-13.0 32984-4) NRBC/100 WBC (test See_Comment [Automat ed code = 6002420645) message] The system which generated this result transmitted reference range : 0.0 - 10.0 /100 WBCs. The refer ence range was not u sed to interpret th is result as normal/abnormal . NRBC x10^3 (test code <0.01 See_Comment [Auto mated = 0703358184) message] The s ystem which generated this result transmitted reference range : 10*3/?L. The reference range was not used to interpret this result as normal/abnormal . GRAN MAT (NEUT) % 63.7 % (test code = 770-8) IMM GRAN % (test code 0.50 % = 4328890673) LYMPH % (test code = 20.3 % 736-9) MONO % (test code = 7.3 % 5905-5) EOS % (test code = 7.8 % 713-8) BASO % (test code = 0.4 % 706-2) GRAN MAT x10^3(ANC) 4.70 10*3/uL 1.99-6.95 (test code = 9161023793) IMM GRAN x10^3 (test 0.04 10*3/uL 0.00-0.06 code = 5981810969) LYMPH x10^3 (test code 1.50 10*3/uL 1.09-3.23 = 731-0) MONO x10^3 (test code 0.54 10*3/uL 0.36-1.02 = 742-7) EOS x10^3 (test code = 0.58 10*3/uL 0.06-0.53 H 711-2) BASO x10^3 (test code 0.03 10*3/uL 0.01-0.09 = 704-7) Lab Interpretation Abnormal (test code = 38329-5) [facility]TR[facility] [id number] 05:36:52 Test Item Value Reference Range Interpretation Comments TROPONIN I (test 0.026 ng/mL See_Comment [Automated code = 1302561272) message] The system which generated this result [...] ? Lab Interpretation Normal (test code = 90190-3) [facility]2020-07-28 02:17:16 Test Item Value Reference Range Interpretation Comments POCT GLU (test code = 3203976510) 157 mg/dL 70-110 H Lab Interpretation (test code = Abnormal 41427-1) [facility]2021[facility] 00:22:07 Test Item Value Reference Range Interpretation Comments APTT Patient (test See_Comment H [Automat ed code = 3173-2) message] The system which generated this result transmitted reference range : 23 - 38 Seconds . The reference range was not used to interpr et this result as normal/abnormal . DIANE (test code = DIANE) The [facility] patient population mean normal value for aPTT is 30 seconds. Lab Interpretation Abnormal (test code = 16611-5) [facility]ACTIV[facility] PARTIAL THRMPLAS [id number] 00:19:44 Test Item Value Reference Range Interpretation Comments APTT Patient (test code = See_Comment [ Automated message] 3173-2) The system [employer] generated this result transmitted ref erence range: 23 - 38 Seconds. The re ference range was not u sed to interpret this result as normal/abnor mal. Lab Interpretation (test Normal code = 35410-1) [facility] TexasPROTHROMBIN TIME / [id number] 00:17:22 Test Item Value Reference Range Interpretation Comments PROTIME PATIENT (test See_Comment [Auto mated message] code = 5964-2) The system [employer] generated this result transmitted ref erence range: 12.0 - 1 4.7 Seconds. The re ference range was not u sed to interpret this result as normal/abnor mal. INR (test code = 6301-6) Nor mal INR <1.1; Warfarin Therap eutic range 2.0 to 3. 0 or 2.5 to 3.5, dep ending upon the indica tions. Lab Interpretation (test Normal code = 07044-9) [facility] GLUCOSE (AUTOMATED)2020-07-27 22:57:49 Test Item Value Reference Range Interpretation Comments POCT GLU (test code = 4016685044) 165 mg/dL 70-110 H Lab Interpretation (test code = Abnormal 16298-3) [facility] GLUCOSE (AUTOMATED)2020-07-27 21:00:40 Test Item Value Reference Range Interpretation Comments POCT GLU (test code = 9953495585) 162 mg/dL 70-110 H Lab Interpretation (test code = Abnormal 92251-0) [facility]TR[facility] [id number] 18:56:42 Test Item Value Reference Range Interpretation Comments TROPONIN I (test 0.024 ng/mL See_Comment [Automated code = 7687035052) message] The system which generated this result [...] ? Lab Interpretation Normal (test code = 28140-0) [facility]OVID[facility] (ID NOW RAPID TESTING)2020-07-27 18:55:46 Test Item Value Reference Range Interpretation Comments SARS-CoV-2 Rapid ID NOW Not Detected Not Detected (test code = 76002-0) DIANE (test code = DIANE) ID NOW COVID-19 Assay is an isothermal nucleic acid amplification test intended for the qualitative detection of nucleic acid from SARS-CoV-2 viral RNA in nasopharyngeal ([employer]) specimens. It is used under Emergency Use [...] indicated. Lab Interpretation Normal (test code = 83636-4) [facility] TexasPROTHROMBIN TIME / [id number] 18:55:26 Test Item Value Reference Range Interpretation Comments PROTIME PATIENT (test See_Comment H [Auto mated message] code = 5964-2) The system [employer] generated this result transmitted ref erence range: 12.0 - 1 4.7 Seconds. The reference range was not used to int erpret this result as normal/abnormal . INR (test code = 6301-6) Nor mal INR <1.1; Warfarin Therap eutic range 2.0 to 3. 0 or 2.5 to 3.5, dep ending upon the indica tions. Lab Interpretation (test Abnormal code = 90555-6) [facility]XR CHEST 1 [id number] 18:55:21Impression: Mild pulmonary congestion.Exam: XR CHEST 1 [...] size is normal. No acute osseous abnormality. [facility], Radiant Results Inft User - 07/27/2020 12:56 [...] No acute osseous abnormality. IMPRESSIONImpression: Mild pulmonary congestion.[facility] TexasN-TERMINAL [id number] 18:53:43 Test Item Value Reference Range Interpretation Comments NT-proBNP (test code 4050 pg/mL See_Comment H [Autom ated = 9210035378) message] The system which generated this result transmitted reference range : <=125. The reference range was not used to interpret this result as normal/abnormal . DIANE (test code = DIANE) Biotin has been reported to cause a negative bias, interpret results relative to patient's use of biotin. Lab Interpretation Abnormal (test code = 64654-7) [facility]MAGNESIUM2021-03-08 18:46:39 Test Item Value Reference Range Interpretation Comments MAGNESIUM (test code = 9837861565) 1.9 mg/dL 1.7-2.4 Lab Interpretation (test code = Normal 22959-8) [facility] TexasCOMP. METABOLIC PANEL (64946)2020-07-27 18:46:23 Test Item Value Reference Range Interpretation Comments NA (test code = 144 mmol/L 135-145 8606831075) K (test code = 3.6 mmol/L 3.5-5.0 0797761591) CL (test code = 110 mmol/L 98-108 H 5872796978) CO2 TOTAL (test code = 25 mmol/L 23-31 2622423134) AGAP (test code = 2-16 2411762849) BUN (test code = 11 mg/dL 7-23 8760837287) GLUCOSE (test code = 190 mg/dL 70-110 H 5693308425) CREATININE (test code = 0.93 mg/dL 0.60-1.25 6441690702) TOTAL BILI (test code = 0.5 mg/dL 0.1-1.1 7878778090) CALCIUM (test code = 8.7 mg/dL 8.6-10.6 6642963448) T PROTEIN (test code = 7.1 g/dL 6.3-8.2 1448518546) ALBUMIN (test code = 3.9 g/dL 3.5-5.0 6889393851) ALK PHOS (test code = 150 U/L 34-122 H 0519992125) ALTv (test code = 14 U/L 550 1742-6) AST(SGOT) (test code = 25 U/L 13-40 1306738718) eGFR Calculation mL/min/1.73m2 (Non-) (test code = 7369951252) eGFR Calculation mL/min/1.73m2 () (test code = 9085488711) DIANE (test code = DIANE) Association of [...] tests). Lab Interpretation Abnormal (test code = 61014-9) [facility] TexasLIPASE2021-03-08 18:46:03 Test Item Value Reference Range Interpretation Comments LIPASE (test code = 5667579462) 119 U/L 0-220 Lab Interpretation (test code = Normal 92465-0) [facility]CB WITH [id number] 18:34:41 Test Item Value Reference Range Interpretation [...] RDW-SD (test code = 45.3 fL 38.5-51.6 49911-3) RDW-CV (test code = 16.1 % 12.1-15.4 H 788-0) PLT (test code = See_Comment H [Automated 777-3) message] The sy stem which generated this result transmitted reference range : 150 - 328 10*3/ ?L. The reference r batsheva was not used to interpret this result as normal/abnormal . MPV (test code = 9.0 fL 9.8-13.0 L 47815-4) NRBC/100 WBC (test See_Comment [Automat ed code = 3096021591) message] The system which generated this result transmitted reference range : 0.0 - 10.0 /100 WBCs. The refer ence range was not u sed to interpret th is result as normal/abnormal . NRBC x10^3 (test code <0.01 See_Comment [Auto mated = 4372419412) message] The s ystem which generated this result transmitted reference range : 10*3/?L. The reference range was not used to interpret this result as normal/abnormal . GRAN MAT (NEUT) % 74.4 % (test code = 770-8) IMM GRAN % (test code 0.60 % = 2937898964) LYMPH % (test code = 12.5 % 736-9) MONO % (test code = 7.0 % 5905-5) EOS % (test code = 5.0 % 713-8) BASO % (test code = 0.5 % 706-2) GRAN MAT x10^3(ANC) 7.09 10*3/uL 1.99-6.95 H (test code = 7841028483) IMM GRAN x10^3 (test 0.06 10*3/uL 0.00-0.06 code = 6573094918) LYMPH x10^3 (test code 1.19 10*3/uL 1.09-3.23 = 731-0) MONO x10^3 (test code 0.67 10*3/uL 0.36-1.02 = 742-7) EOS x10^3 (test code = 0.48 10*3/uL 0.06-0.53 711-2) BASO x10^3 (test code 0.05 10*3/uL 0.01-0.09 = 704-7) Lab Interpretation Abnormal (test code = 59956-5) [facility] GLUCOSE (AUTOMATED)2020-07-27 18:34:20 Test Item Value Reference Range Interpretation Comments POCT GLU (test code = 8328515259) 208 mg/dL 70-110 H Lab Interpretation (test code = Abnormal 13990-5) [facility] GLUCOSE (AUTOMATED)2020-07-20 23:35:00 Test Item Value Reference Range Interpretation Comments POCT GLU (test code = 9371177077) 208 mg/dL 70-110 H Lab Interpretation (test code = Abnormal 65166-8) [facility] TexasIRON [id number] 21:28:00 Test Item Value Reference Range Interpretation Comments IRON (test code = <10 50-160 L 9553329518) TIBC (test code = 360 ug/dL 250-410 0125412527) % FE SAT (test code = Unable to calculate 8410689963) because, either iron serum, total ir on binding capacit y, or both are less t lam the sensitivity of the analyzer. Lab Interpretation (test Abnormal code = 25754-4) [facility] TexasFIBRINOGEN2021-03-01 20:47:00 Test Item Value Reference Range Interpretation Comments Fibrinogen (test code = 5895163283) 614 mg/dL 167-453 H Lab Interpretation (test code = Abnormal 25565-2) [facility] WITHOUT [id number] 20:42:00 Test Item Value Reference Range Interpretation Comments WBC (test code = 6690-2) See_Comment [A utomated message] The system [employer] generated this result transmit ludmila reference range : 4.20 - 10.70 10*3/?L. The reference range was not used to interpret this result as normal/abnormal . RBC (test code = 789-8) See_Comment L [Au tomated message] The system [employer] generated this result transmit ludmila reference range [...] See_Comment H [Au tomated message] The system [employer] generated this result transmit ludmila reference range : 150 - 328 10*3/?L. The reference range was not used to interpret this result as normal/abnormal . MPV (test code = 9.9 fL 9.8-13 61311-4) RDW-CV (test code = 13.6 % 12.1-15.4 788-0) RDW-SD (test code = 41.9 fL 38.5-51.6 83358-8) NRBC x10^3 (test code = <0.01 See_Comment [Au tomated message] 4823569478) The system [employer] generated this result transmit ludmila reference range : 10*3/?L. The reference range was not used to interpret this result as normal/abnormal . NRBC/100 WBC (test code See_Comment [Au tomated message] = 7973914091) The system [employer] generated this result transmit ludmila reference range : 0.0 - 10.0 /100 WBC s. The reference r batsheva was not used to interpret this result as normal/abnormal . IPF % (test code = 6995968901) Lab Interpretation (test Abnormal code = 33020-3) [facility]2020-07-20 19:39:00 Test Item Value Reference Range Interpretation Comments POCT GLU (test code = 5214347803) 214 mg/dL 70-110 H Lab Interpretation (test code = Abnormal 78724-9) [facility] TexasFERRITIN [id number] 18:51:00 Test Item Value Reference Range Interpretation Comments FERRITIN (test code = 16.5 ng/mL 18-464 L 6949677664) DIANE (test code = DIANE) Biotin has been reported to cause a negative bias, interpret results relative to patient's use of biotin. Lab Interpretation (test Abnormal code = 72288-8) [facility] TexasType and Screen - ONCE [id number] 17:59:01 Test Item Value Reference Range Interpretation Comments ABO & RH (test code O POSITIVE Performe d at [facility] = 20) Laboratory Serv [facility] Blood [facility] s [address]Wmkz Free: [phone] A No. [id number] IAT (test code = Negative Performed a t [facility] 1185) Laboratory Serv [facility] Blood [facility] s [id number] Free: [phone] A No. [id number] [facility] TexasBASIC METABOLIC PANEL (NA, K, CL, CO2, GLUCOSE, BUN, CREATININE, CA)2020-07-20 10:54:00 Test Item Value Reference Range Interpretation Comments NA (test code = 137 mmol/L 135-145 4383597568) K (test code = 3.9 mmol/L 3.5-5 3506052987) CL (test code = 107 mmol/L 98-108 2550356860) CO2 TOTAL (test code = 25 mmol/L 23-31 6042295875) AGAP (test code = 2-16 9799410970) BUN (test code = 10 mg/dL 7-23 0113458023) GLUCOSE (test code = 165 mg/dL 70-110 H 2949920087) CREATININE (test code = 0.92 mg/dL 0.6-1.25 5169287530) CALCIUM (test code = 8.2 mg/dL 8.6-10.6 L 0397923253) eGFR Calculation mL/min/1.73m2 (Non-) (test code = 3633398083) eGFR Calculation mL/min/1.73m2 () (test code = 4959875169) DIANE (test code = DIANE) Association of [...] tests). Lab Interpretation Abnormal (test code = 33590-1) [facility] WITH [id number] 10:23:00 Test Item Value Reference Range Interpretation [...] RDW-SD (test code = 42.2 fL 38.5-51.6 11770-8) RDW-CV (test code = 13.5 % 12.1-15.4 788-0) PLT (test code = See_Comment [Automated 777-3) message] The sy stem which generated this result transmitted reference range : 150 - 328 10*3/ ?L. The reference r batsheva was not used to interpret this result as normal/abnormal . MPV (test code = 9.9 fL 9.8-13 35653-1) NRBC/100 WBC (test See_Comment [Automat ed code = 6041081751) message] The system which generated this result transmitted reference range : 0.0 - 10.0 /100 WBCs. The refer ence range was not u sed to interpret th is result as normal/abnormal . NRBC x10^3 (test code <0.01 See_Comment [Auto mated = 7202500435) message] The s ystem which generated this result transmitted reference range : 10*3/?L. The reference range was not used to interpret this result as normal/abnormal . GRAN MAT (NEUT) % 64.6 % (test code = 770-8) IMM GRAN % (test code 0.40 % = 0691860600) LYMPH % (test code = 18.3 % 736-9) MONO % (test code = 10.3 % 5905-5) EOS % (test code = 6.0 % 713-8) BASO % (test code = 0.4 % 706-2) GRAN MAT x10^3(ANC) 4.63 10*3/uL 1.99-6.95 (test code = 3981766551) IMM GRAN x10^3 (test 0.03 10*3/uL 0-0.06 code = 6285300156) LYMPH x10^3 (test code 1.31 10*3/uL 1.09-3.23 = 731-0) MONO x10^3 (test code 0.74 10*3/uL 0.36-1.02 = 742-7) EOS x10^3 (test code = 0.43 10*3/uL 0.06-0.53 711-2) BASO x10^3 (test code 0.03 10*3/uL 0.01-0.09 = 704-7) Lab Interpretation Abnormal (test code = 53965-4) [facility]2020-07-19 23:59:00 Test Item Value Reference Range Interpretation Comments POCT GLU (test code = 8777113019) 135 mg/dL 70-110 H Lab Interpretation (test code = Abnormal 51208-3) [facility]MAGNESIUM2021-02-28 21:20:00 Test Item Value Reference Range Interpretation Comments MAGNESIUM (test code = 2.1 mg/dL 1.7-2.4 Sligh t hemolysis 6557227006) Lab Interpretation (test Normal code = 38911-5) [facility] WITHOUT [id number] 21:00:00 Test Item Value Reference Range Interpretation Comments WBC (test code = 6690-2) See_Comment [A utomated message] The system [employer] generated this result transmit ludmila reference range : 4.20 - 10.70 10*3/?L. The reference range was not used to interpret this result as normal/abnormal . RBC (test code = 789-8) See_Comment L [Au tomated message] The system [employer] generated this result transmit ludmila reference range [...] 777-3) See_Comment [Au tomated message] The system [employer] generated this result transmit ludmila reference range : 150 - 328 10*3/?L. The reference range was not used to interpret this result as normal/abnormal . MPV (test code = 10.1 fL 9.8-13 86571-0) RDW-CV (test code = 13.7 % 12.1-15.4 788-0) RDW-SD (test code = 42.2 fL 38.5-51.6 92364-1) NRBC x10^3 (test code = <0.01 See_Comment [Au tomated message] 4819487114) The system [employer] generated this result transmit ludmila reference range : 10*3/?L. The reference range was not used to interpret this result as normal/abnormal . NRBC/100 WBC (test code See_Comment [Au tomated message] = 1573937355) The [facility] generated this result transmit ludmila reference range : 0.0 - 10.0 /100 WBC s. The reference r batsheva was not used to interpret this result as normal/abnormal . IPF % (test code = 5212078559) Lab Interpretation (test Abnormal code = 31815-4) [facility] GLUCOSE (AUTOMATED)2020-07-19 20:12:00 Test Item Value Reference Range Interpretation Comments POCT GLU (test code = 9226012175) 156 mg/dL 70-110 H Lab Interpretation (test code = Abnormal 51633-2) [facility] GLUCOSE (AUTOMATED)2020-07-19 15:56:00 Test Item Value Reference Range Interpretation Comments POCT GLU (test code = 1100279053) 162 mg/dL 70-110 H Lab Interpretation (test code = Abnormal 37899-5) [facility] TexasCT FOOT RIGHT W [id number] 14:31:[address] findings of osteomyelitis. Cellulitis. [...] concern persists as this is therecommended imaging modality.[facility] TexasBASI METABOLIC PANEL (NA, K, CL, CO2, GLUCOSE, BUN, CREATININE, CA)2020-07-19 10:07:00 Test Item Value Reference Range Interpretation Comments NA (test code = 137 mmol/L 135-145 4766766730) K (test code = 4.1 mmol/L 3.5-5 Slight 6884868259) hemolysis CL (test code = 108 mmol/L 98-108 8911277076) CO2 TOTAL (test code 24 mmol/L 23-31 = 4461018507) AGAP (test code = 2-16 2109393600) BUN (test code = 10 mg/dL 7-23 Slight 3402364615) hemolysis GLUCOSE (test code = 134 mg/dL 70-110 H 6536358720) CREATININE (test code 0.80 mg/dL 0.6-1.25 = 6674950361) CALCIUM (test code = 8.2 mg/dL 8.6-10.6 L 0239720559) eGFR Calculation mL/min/1.73m2 (Non-) (test code = 4559583426) eGFR Calculation mL/min/1.73m2 () (test code = 3128094446) DIANE (test code = DIANE) Association of [...] tests). Lab Interpretation Abnormal (test code = 37351-8) [facility]2020-07-18 17:51:00 Test Item Value Reference Range Interpretation Comments POCT GLU (test code = 7501868410) 130 mg/dL 70-110 H Lab Interpretation (test code = Abnormal 97860-5) [facility] WITH [id number] 17:47:00 Test Item Value Reference Range Interpretation [...] RDW-SD (test code = 39.6 fL 38.5-51.6 09607-4) RDW-CV (test code = 13.2 % 12.1-15.4 788-0) PLT (test code = See_Comment [Automated 777-3) message] The sy stem which generated this result transmitted reference range : 150 - 328 10*3/ ?L. The reference r batsheva was not used to interpret this result as normal/abnormal . MPV (test code = 9.5 fL 9.8-13 L 97672-0) NRBC/100 WBC (test See_Comment [Automat ed code = 3441944843) message] The system which generated this result transmitted reference range : 0.0 - 10.0 /100 WBCs. The refer ence range was not u sed to interpret th is result as normal/abnormal . NRBC x10^3 (test code <0.01 See_Comment [Auto mated = 1232300554) message] The s ystem which generated this result transmitted reference range : 10*3/?L. The reference range was not used to interpret this result as normal/abnormal . GRAN MAT (NEUT) % 70.3 % (test code = 770-8) IMM GRAN % (test code 0.30 % = 3650492502) LYMPH % (test code = 16.0 % 736-9) MONO % (test code = 10.1 % 5905-5) EOS % (test code = 3.0 % 713-8) BASO % (test code = 0.3 % 706-2) GRAN MAT x10^3(ANC) 5.37 10*3/uL 1.99-6.95 (test code = 1160905640) IMM GRAN x10^3 (test <0.03 0-0.06 code = 5907382786) LYMPH x10^3 (test code 1.22 10*3/uL 1.09-3.23 = 731-0) MONO x10^3 (test code 0.77 10*3/uL 0.36-1.02 = 742-7) EOS x10^3 (test code = 0.23 10*3/uL 0.06-0.53 711-2) BASO x10^3 (test code <0.03 0.01-0.09 = 704-7) Lab Interpretation Abnormal (test code = 69866-3) [facility] GLUCOSE (AUTOMATED)2020-07-18 15:51:00 Test Item Value Reference Range Interpretation Comments POCT GLU (test code = 3795683912) 123 mg/dL 70-110 H Lab Interpretation (test code = Abnormal 27421-7) [facility] GLUCOSE (AUTOMATED)2020-07-18 00:19:00 Test Item Value Reference Range Interpretation Comments POCT GLU (test code = 3690446642) 138 mg/dL 70-110 H Lab Interpretation (test code = Abnormal 00149-4) [facility] TexasFL TIME OR (NON-REPORTABLE)2020-07-17 23:42:17 These images do not require a Radiology diagnostic report.[facility] GLUCOSE (AUTOMATED)2020-07-17 16:30:00 Test Item Value Reference Range Interpretation Comments POCT GLU (test code = 7997319711) 140 mg/dL 70-110 H Lab Interpretation (test code = Abnormal 81696-4) [facility] METABOLIC PANEL (NA, K, CL, CO2, GLUCOSE, BUN, CREATININE, CA)2020-07-17 11:53:00 Test Item Value Reference Range Interpretation Comments NA (test code = 135 mmol/L 135-145 7088585471) K (test code = 4.0 mmol/L 3.5-5 7935411137) CL (test code = 107 mmol/L 98-108 6619700543) CO2 TOTAL (test code = 18 mmol/L 23-31 L 1024849684) AGAP (test code = 2-16 0974683050) BUN (test code = 12 mg/dL 7-23 9562123383) GLUCOSE (test code = 144 mg/dL 70-110 H 1624355397) CREATININE (test code = 0.90 mg/dL 0.6-1.25 0743184757) CALCIUM (test code = 8.2 mg/dL 8.6-10.6 L 0505674711) eGFR Calculation mL/min/1.73m2 (Non-) (test code = 5219594718) eGFR Calculation mL/min/1.73m2 () (test code = 6039320320) DIANE (test code = DIANE) Association of [...] tests). Lab Interpretation Abnormal (test code = 68563-6) [facility] WITH [id number] 11:06:00 Test Item Value Reference Range Interpretation Comments WBC (test code = See_Comment [Automated 2712-2) message] The sy stem which generated this result transmitted reference range : 4.20 - 10.70 10*3/?L. The reference range was not used to interpret this result as normal/abnormal . RBC (test code = See_Comment L [Automated 519-8) message] The sy stem which generated this [...] RDW-SD (test code = 41.4 fL 38.5-51.6 77798-6) RDW-CV (test code = 13.4 % 12.1-15.4 788-0) PLT (test code = See_Comment [Automated 417-3) message] The sy stem which generated this result transmitted reference range : 150 - 328 10*3/ ?L. The reference r batsheva was not used to interpret this result as normal/abnormal . MPV (test code = 9.7 fL 9.8-13 L 30997-2) NRBC/100 WBC (test See_Comment [Automat ed code = 4912657709) message] The system which generated this result transmitted reference range : 0.0 - 10.0 /100 WBCs. The refer ence range was not u sed to interpret th is result as normal/abnormal . NRBC x10^3 (test code <0.01 See_Comment [Auto mated = 3672555473) message] The s ystem which generated this result transmitted reference range : 10*3/?L. The reference range was not used to interpret this result as normal/abnormal . GRAN MAT (NEUT) % 57.5 % (test code = 770-8) IMM GRAN % (test code 0.40 % = 4015599928) LYMPH % (test code = 24.8 % 736-9) MONO % (test code = 11.1 % 5905-5) EOS % (test code = 5.6 % 713-8) BASO % (test code = 0.6 % 706-2) GRAN MAT x10^3(ANC) 3.86 10*3/uL 1.99-6.95 (test code = 4595174569) IMM GRAN x10^3 (test 0.03 10*3/uL 0-0.06 code = 0345497289) LYMPH x10^3 (test code 1.67 10*3/uL 1.09-3.23 = 731-0) MONO x10^3 (test code 0.75 10*3/uL 0.36-1.02 = 742-7) EOS x10^3 (test code = 0.38 10*3/uL 0.06-0.53 711-2) BASO x10^3 (test code 0.04 10*3/uL 0.01-0.09 = 704-7) Lab Interpretation Abnormal (test code = 60333-1) [facility] GLUCOSE (AUTOMATED)2020-07-17 00:46:00 Test Item Value Reference Range Interpretation Comments POCT GLU (test code = 9276650431) 130 mg/dL 70-110 H Lab Interpretation (test code = Abnormal 76254-5) [facility]17 00:35:00 Test Item Value Reference Range Interpretation Comments POCT GLU (test code = 2061772060) 127 mg/dL 70-110 H Lab Interpretation (test code = Abnormal 43573-1) [facility] COVID [id number] 23:52:00COVID DMT InterpretationInterpretation/Recommendations: Molecular NAAT Tests for [...] COVID-19 testing the patient has had at [facility], including molecular NAAT testing (more commonly known as PCR testing and Rapid ID Now testing) and antibody testing. It does not take into account any testing that a patient has had outside of the [facility] medical record. [facility] LABORATORY SERVICESCOVID Res [id number]-[id number] Rapid ID NOW (no units) ? ? Date ? Value ? 07/16/2020 ? Not Detected ? ? ? 07/10/2020 ? Not Detected ? ? ? 05/29/2020 ? Not Detected ? ? ? 03/16/2020 ? Not Detected ? ? ? 02/03/2020 ? Not Detected ? ? ? 11/16/2019 ? Not Detected ? ? ? 09/17/2019 ? Not Detected ? [facility] LABORATORY SERVICESUnFormerly [facility] Type and Screen - ONCE [id number] 22:45:46 Test Item Value Reference Range Interpretation Comments ABO & RH (test code O POSITIVE Performe d at [facility] = 20) Laboratory Serv [facility] [place] [address] 18379Tlai Free: [phone] A No. [id number] IAT (test code = Negative Performed a t [facility] 1185) Laboratory Serv [facility] [place] [address] s 465[address]Kgxo Free: [phone] A No. [id number] [facility]ID NOW RAPID TESTING)2020-07-16 21:53:00 Test Item Value Reference Range Interpretation Comments SARS-CoV-2 Rapid ID NOW Not Detected Not Detected (test code = 31880-4) DIANE (test code = DIANE) ID NOW COVID-19 Assay is an isothermal nucleic acid amplification test intended for the qualitative detection of nucleic acid from SARS-CoV-2 viral RNA in nasopharyngeal (FLOOR SUPERVISOR) specimens. It is used under Emergency Use [...] indicated. Lab Interpretation Normal (test code = 90446-7) [facility] GLUCOSE (AUTOMATED)2020-07-16 21:13:00 Test Item Value Reference Range Interpretation Comments POCT GLU (test code = 6598752141) 146 mg/dL 70-110 H Lab Interpretation (test code = Abnormal 52000-1) [facility] GLUCOSE (AUTOMATED)2020-07-16 15:39:00 Test Item Value Reference Range Interpretation Comments POCT GLU (test code = 1282656249) 90 mg/dL 70-110 Lab Interpretation (test code = Normal 53919-6) [facility] [id number] 14:01:00 Test Item Value Reference Range Interpretation Comments Blood Culture-Aerobic No organisms No growth Previo us (test code = 46404-0) isolated prelim inary verified result was Culture In Progress on 07/11/2020 at 11 01 CSTPrevious preliminary verified result was No growth a t 24 hours on 07/12/2020 at 08 01 CSTPrevious preliminary verified result was No growth a t 48 hours on 07/13/2020 at 08 01 CSTPrevious preliminary verified result was No growth a t 72 hours on 07/14/2020 at 08 01 H[employer]ER Blood No organisms No growth Previous Culture-Anaerobic isolated preliminar y (test code = 26603-8) verifi ed result was Culture In Progress on 07/11/2020 at 11 01 CSTPrevious preliminary verified result was No growth a t 24 hours on 07/12/2020 at 08 01 CSTPrevious preliminary verified result was No growth a t 48 hours on 07/13/2020 at 08 01 CSTPrevious preliminary verified result was No growth a t 72 hours on 07/14/2020 at 08 01 [employer] Lab Interpretation Normal (test code = 99555-0) [facility] [id number] 14:01:00 Test Item Value Reference Range Interpretation Comments Blood Culture-Aerobic No organisms No growth Previo us (test code = 40935-1) isolated prelim inary verified result was Culture In Progress on 07/11/2020 at 11 01 CSTPrevious preliminary verified result was No growth a t 24 hours on 07/12/2020 at 08 01 CSTPrevious preliminary verified result was No growth a t 48 hours on 07/13/2020 at 08 01 CSTPrevious preliminary verified result was No growth a t 72 hours on 07/14/2020 at 08 01 H[employer] Blood No organisms No growth Previous Culture-Anaerobic isolated preliminar y (test code = 36946-4) verifi ed result was Culture In Progress on 07/11/2020 at 11 01 CSTPrevious preliminary verified result was No growth a t 24 hours on 07/12/2020 at 08 01 CSTPrevious preliminary verified result was No growth a t 48 hours on 07/13/2020 at 08 01 CSTPrevious preliminary verified result was No growth a t 72 hours on 07/14/2020 at 08 01 [employer] Lab Interpretation Normal (test code = 48003-4) [facility]EL (NA, K, CL, CO2, GLUCOSE, BUN, CREATININE, CA)2020-07-16 12:05:00 Test Item Value Reference Range Interpretation Comments NA (test code = 137 mmol/L 135-145 7663144848) K (test code = 3.7 mmol/L 3.5-5 1735632960) CL (test code = 107 mmol/L 98-108 8034487031) CO2 TOTAL (test code = 22 mmol/L 23-31 L 4973838681) AGAP (test code = 2-16 6797014934) BUN (test code = 13 mg/dL 7-23 8308823777) GLUCOSE (test code = 83 mg/dL 70-110 1630249836) CREATININE (test code = 1.00 mg/dL 0.6-1.25 4322018549) CALCIUM (test code = 8.1 mg/dL 8.6-10.6 L 3043893985) eGFR Calculation mL/min/1.73m2 (Non-) (test code = 5690030670) eGFR Calculation mL/min/1.73m2 () (test code = 8714127232) DIANE (test code = DIANE) Association of [...] tests). Lab Interpretation Abnormal (test code = 86224-3) [facility] WITH [id number] 11:15:00 Test Item Value Reference Range Interpretation Comments WBC (test code = See_Comment [Automated 0790-2) message] The sy stem which generated this result transmitted reference range : 4.20 - 10.70 10*3/?L. The reference range was not used to interpret this result as normal/abnormal . RBC (test code = See_Comment L [Automated 979-8) message] The sy stem which generated this [...] RDW-SD (test code = 42.5 fL 38.5-51.6 43613-3) RDW-CV (test code = 13.5 % 12.1-15.4 788-0) PLT (test code = See_Comment [Automated 777-3) message] The sy stem which generated this result transmitted reference range : 150 - 328 10*3/ ?L. The reference r batsheva was not used to interpret this result as normal/abnormal . MPV (test code = 9.9 fL 9.8-13 16130-1) NRBC/100 WBC (test See_Comment [Automat ed code = 5475524528) message] The system which generated this result transmitted reference range : 0.0 - 10.0 /100 WBCs. The refer ence range was not u sed to interpret th is result as normal/abnormal . NRBC x10^3 (test code <0.01 See_Comment [Auto mated = 7340343270) message] The s ystem which generated this result transmitted reference range : 10*3/?L. The reference range was not used to interpret this result as normal/abnormal . GRAN MAT (NEUT) % 55.5 % (test code = 770-8) IMM GRAN % (test code 0.30 % = 7336846760) LYMPH % (test code = 27.3 % 736-9) MONO % (test code = 11.3 % 5905-5) EOS % (test code = 5.1 % 713-8) BASO % (test code = 0.5 % 706-2) GRAN MAT x10^3(ANC) 3.48 10*3/uL 1.99-6.95 (test code = 0464654077) IMM GRAN x10^3 (test <0.03 0-0.06 code = 1056695907) LYMPH x10^3 (test code 1.71 10*3/uL 1.09-3.23 = 731-0) MONO x10^3 (test code 0.71 10*3/uL 0.36-1.02 = 742-7) EOS x10^3 (test code = 0.32 10*3/uL 0.06-0.53 711-2) BASO x10^3 (test code 0.03 10*3/uL 0.01-0.09 = 704-7) Lab Interpretation Abnormal (test code = 06943-7) [facility] GLUCOSE (AUTOMATED)2020-07-15 23:21:00 Test Item Value Reference Range Interpretation Comments POCT GLU (test code = 3741157400) 98 mg/dL 70-110 Lab Interpretation (test code = Normal 02309-4) [facility] GLUCOSE (AUTOMATED)2020-07-15 18:58:00 Test Item Value Reference Range Interpretation Comments POCT GLU (test code = 8298276775) 153 mg/dL 70-110 H Lab Interpretation (test code = Abnormal 66240-6) [facility]-REACTIVE [id number] 17:07:00 Test Item Value Reference Range Interpretation Comments CRP (test code = 5091009416) 3.5 mg/dL <0.8 H Lab Interpretation (test code = Abnormal 53062-8) [facility] TexasSEDIMENTATION [id number] 11:48:00 Test Item Value Reference Range Interpretation Comments ESR (test code = See_Comment H [Automated message] 7655429070) The system [employer] generated this result transmitted ref erence range: 0 - 10 m m/HR. The reference r batsheva was not used to interpret this result as normal/abnor mal. Lab Interpretation (test Abnormal code = 37875-7) [facility] METABOLIC PANEL (NA, K, CL, CO2, GLUCOSE, BUN, CREATININE, CA)2020-07-15 11:15:00 Test Item Value Reference Range Interpretation Comments NA (test code = 137 mmol/L 135-145 7350256398) K (test code = 3.6 mmol/L 3.5-5 2857795689) CL (test code = 107 mmol/L 98-108 9595299636) CO2 TOTAL (test code = 23 mmol/L 23-31 5566013122) AGAP (test code = 2-16 6708866597) BUN (test code = 16 mg/dL 7-23 5442231369) GLUCOSE (test code = 189 mg/dL 70-110 H 7063032778) CREATININE (test code = 1.22 mg/dL 0.6-1.25 8895116390) CALCIUM (test code = 8.2 mg/dL 8.6-10.6 L 6334455177) eGFR Calculation mL/min/1.73m2 (Non-) (test code = 4906677255) eGFR Calculation mL/min/1.73m2 () (test code = 2973816217) DIANE (test code = DIANE) Association of [...] tests). Lab Interpretation Abnormal (test code = 88117-6) [facility]2021-[facility]-24 11:15:00 Test Item Value Reference Range Interpretation Comments MAGNESIUM (test code = 6676360196) 1.8 mg/dL 1.7-2.4 Lab Interpretation (test code = Normal 70438-6) [facility] GLUCOSE (AUTOMATED)2020-07-14 22:47:00 Test Item Value Reference Range Interpretation Comments POCT GLU (test code = 2846487444) 204 mg/dL 70-110 H Lab Interpretation (test code = Abnormal 39851-9) [facility] Texas[facility]comycin Trough Level - Draw no more than 60 minutes before the 1400 dose.2020-07-14 22:38:00 Test Item Value Reference Range Interpretation Comments VANCO TROUGH (test code 17.4 ug/mL 10-20 = 6193078624) DIANE (test code = DIANE) Toxic Range: ?>20 ug/mL 15-20 ug/mL is recommended for severe infection or when Vancomycin MILLICENT is greater than or equal to 2. Lab Interpretation (test Normal code = 12263-7) [facility] GLUCOSE (AUTOMATED)2020-07-14 18:02:00 Test Item Value Reference Range Interpretation Comments POCT GLU (test code = 9964140981) 126 mg/dL 70-110 H Lab Interpretation (test code = Abnormal 51742-8) [facility] GLUCOSE (AUTOMATED)2020-07-14 13:58:00 Test Item Value Reference Range Interpretation Comments POCT GLU (test code = 5268950483) 104 mg/dL 70-110 Lab Interpretation (test code = Normal 83670-3) [facility] Met[facility] (NA, K, CL, CO2, GLUCOSE, BUN, CREATININE, CA)2020-07-14 12:45:00 Test Item Value Reference Range Interpretation Comments NA (test code = 136 mmol/L 135-145 7705286213) K (test code = 3.5 mmol/L 3.5-5 0377534853) CL (test code = 104 mmol/L 98-108 7157877165) CO2 TOTAL (test code = 27 mmol/L 23-31 7198318412) AGAP (test code = 2-16 5850881967) BUN (test code = 17 mg/dL 7-23 5252134229) GLUCOSE (test code = 110 mg/dL 70-110 6051540601) CREATININE (test code = 1.38 mg/dL 0.6-1.25 H 0364086906) CALCIUM (test code = 8.0 mg/dL 8.6-10.6 L 2470090138) eGFR Calculation mL/min/1.73m2 (Non-) (test code = 0451580080) eGFR Calculation mL/min/1.73m2 () (test code = 2023401271) DIANE (test code = DIANE) Association of [...] tests). Lab Interpretation Abnormal (test code = 11617-5) [facility] with [id number] 12:33:00 Test Item Value Reference Range Interpretation [...] RDW-SD (test code = 41.3 fL 38.5-51.6 43816-3) RDW-CV (test code = 13.2 % 12.1-15.4 788-0) PLT (test code = See_Comment [Automated 777-3) message] The sy stem which generated this result transmitted reference range : 150 - 328 10*3/ ?L. The reference r batsheva was not used to interpret this result as normal/abnormal . MPV (test code = 10.4 fL 9.8-13 60861-0) NRBC/100 WBC (test See_Comment [Automat ed code = 6387980377) message] The system which generated this result transmitted reference range : 0.0 - 10.0 /100 WBCs. The refer ence range was not u sed to interpret th is result as normal/abnormal . NRBC x10^3 (test code <0.01 See_Comment [Auto mated = 9581885209) message] The s ystem which generated this result transmitted reference range : 10*3/?L. The reference range was not used to interpret this result as normal/abnormal . GRAN MAT (NEUT) % 57.7 % (test code = 770-8) IMM GRAN % (test code 0.20 % = 0441380795) LYMPH % (test code = 22.6 % 736-9) MONO % (test code = 13.5 % 5905-5) EOS % (test code = 5.5 % 713-8) BASO % (test code = 0.5 % 706-2) GRAN MAT x10^3(ANC) 3.48 10*3/uL 1.99-6.95 (test code = 9194209742) IMM GRAN x10^3 (test <0.03 0-0.06 code = 4034861468) LYMPH x10^3 (test code 1.36 10*3/uL 1.09-3.23 = 731-0) MONO x10^3 (test code 0.81 10*3/uL 0.36-1.02 = 742-7) EOS x10^3 (test code = 0.33 10*3/uL 0.06-0.53 711-2) BASO x10^3 (test code 0.03 10*3/uL 0.01-0.09 = 704-7) Lab Interpretation Abnormal (test code = 03089-5) [facility] TexasPROTHROMBIN TIME / [id number] 12:17:00 Test Item Value Reference Range Interpretation Comments PROTIME PATIENT (test See_Comment [Auto mated message] code = 5964-2) The system [employer] generated this result transmitted ref erence range: 12.0 - 1 4.7 Seconds. The re ference range was not u sed to interpret this result as normal/abnor mal. INR (test code = 6301-6) Nor mal INR <1.1; Warfarin Therap eutic range 2.0 to 3. 0 or 2.5 to 3.5, dep ending upon the indica tions. Lab Interpretation (test Normal code = 37439-7) [facility] COVID [id number] 04:10:00COVID DMT InterpretationInterpretation/Recommendations:Molecular NAAT Tests for Active [...] COVID-19 testing the patient has had at [facility], including molecular NAAT testing (more commonly known as PCR testing and Rapid ID Now testing) and antibody testing. It does not take into account any testing that a patient has had outside of the [facility] medical record. [facility] LABORATORY SERVICESCOVID ResultsSARS- CoV-2 Rapid ID NOW (no units) ? ? Date ? Value ? 07/10/2020 ? Not Detected ? ? ? 05/29/2020 ? Not Detected ? ? ? 03/16/2020 ? Not Detected ? ? ? 02/03/2020 ? Not Detected ? ? ? 11/16/2019 ? Not Detected ? ? ? 09/17/2019 ? Not Detected ? [facility] LABORATORY SERVICES [facility] GLUCOSE (AUTOMATED)2020-07-13 22:37:00 Test Item Value Reference Range Interpretation Comments POCT GLU (test code = 3704100921) 121 mg/dL 70-110 H Lab Interpretation (test code = Abnormal 66004-3) [facility] GLUCOSE (AUTOMATED)2020-07-13 17:43:00 Test Item Value Reference Range Interpretation Comments POCT GLU (test code = 0771684876) 138 mg/dL 70-110 H Lab Interpretation (test code = Abnormal 34213-6) [facility] GLUCOSE (AUTOMATED)2020-07-13 14:00:00 Test Item Value Reference Range Interpretation Comments POCT GLU (test code = 2520092964) 96 mg/dL 70-110 Lab Interpretation (test code = Normal 66229-1) [facility] GLUCOSE (AUTOMATED)2020-07-13 11:44:00 Test Item Value Reference Range Interpretation Comments POCT GLU (test code = 5575294640) 118 mg/dL 70-110 H Lab Interpretation (test code = Abnormal 39329-4) [facility] with [id number] 11:24:00 Test Item Value Reference Range Interpretation [...] RDW-SD (test code = 40.8 fL 38.5-51.6 61545-8) RDW-CV (test code = 13.1 % 12.1-15.4 788-0) PLT (test code = See_Comment [Automated 777-3) message] The sy stem which generated this result transmitted reference range : 150 - 328 10*3/ ?L. The reference r batsheva was not used to interpret this result as normal/abnormal . MPV (test code = 10.3 fL 9.8-13 31026-0) NRBC/100 WBC (test See_Comment [Automat ed code = 9885068714) message] The system which generated this result transmitted reference range : 0.0 - 10.0 /100 WBCs. The refer ence range was not u sed to interpret th is result as normal/abnormal . NRBC x10^3 (test code <0.01 See_Comment [Auto mated = 2546914842) message] The s ystem which generated this result transmitted reference range : 10*3/?L. The reference range was not used to interpret this result as normal/abnormal . GRAN MAT (NEUT) % 56.8 % (test code = 770-8) IMM GRAN % (test code 0.40 % = 1654354700) LYMPH % (test code = 24.1 % 736-9) MONO % (test code = 10.9 % 5905-5) EOS % (test code = 7.3 % 713-8) BASO % (test code = 0.5 % 706-2) GRAN MAT x10^3(ANC) 3.13 10*3/uL 1.99-6.95 (test code = 7275278999) IMM GRAN x10^3 (test <0.03 0-0.06 code = 9504068258) LYMPH x10^3 (test code 1.33 10*3/uL 1.09-3.23 = 731-0) MONO x10^3 (test code 0.60 10*3/uL 0.36-1.02 = 742-7) EOS x10^3 (test code = 0.40 10*3/uL 0.06-0.53 711-2) BASO x10^3 (test code 0.03 10*3/uL 0.01-0.09 = 704-7) Lab Interpretation Abnormal (test code = 87304-5) [facility] Metabolic Panel (NA, K, CL, CO2, GLUCOSE, BUN, CREATININE, CA)2020-07-13 11:02:00 Test Item Value Reference Range Interpretation Comments NA (test code = 137 mmol/L 135-145 2419297485) K (test code = 3.4 mmol/L 3.5-5 L 4594726285) CL (test code = 104 mmol/L 98-108 5843514748) CO2 TOTAL (test code = 25 mmol/L 23-31 3821143371) AGAP (test code = 2-16 6048978824) BUN (test code = 17 mg/dL 7-23 9753881704) GLUCOSE (test code = 93 mg/dL 70-110 9922460066) CREATININE (test code = 1.38 mg/dL 0.6-1.25 H 4381214832) CALCIUM (test code = 8.2 mg/dL 8.6-10.6 L 7213985103) eGFR Calculation mL/min/1.73m2 (Non-) (test code = 9644823337) eGFR Calculation mL/min/1.73m2 () (test code = 5212359823) DIANE (test code = DIANE) Association of [...] tests). Lab Interpretation Abnormal (test code = 12480-8) [facility] GLUCOSE (AUTOMATED)2020-07-13 01:46:00 Test Item Value Reference Range Interpretation Comments POCT GLU (test code = 2455576875) 115 mg/dL 70-110 H Lab Interpretation (test code = Abnormal 34239-7) [facility] TexasGLYCOSYLATED HEMOGLOBIN (A1C)2020-07-13 00:45:00 Test Item Value Reference Range Interpretation Comments HGB A1C (test code = 9.8 % 4-6 H 4548-4) DIANE (test code = DIANE) %A1C (NGSP) Interpretation (ADA)4.8-5.6 ? ? Normal or (Non-Diabetic Range)5.7-6.4 ? ? Increased Risk (Pre-Diabetic)>6.5 ?Diabetes Indicated Lab Interpretation Abnormal (test code = 99814-3) [facility] GLUCOSE (AUTOMATED)2020-07-12 22:23:00 Test Item Value Reference Range Interpretation Comments POCT GLU (test code = 1147252435) 141 mg/dL 70-110 H Lab Interpretation (test code = Abnormal 63320-4) [facility] Texas[facility] Trough Level - Draw within 30 minutes prior to 4TH dose.2020-07-12 22:06:00 Test Item Value Reference Range Interpretation Comments VANCO TROUGH (test code 11.8 ug/mL 10-20 = 9463992036) DIANE (test code = DIANE) Toxic Range: ?>20 ug/mL 15-20 ug/mL is recommended for severe infection or when Vancomycin MILLICENT is greater than or equal to 2. Lab Interpretation (test Normal code = 60856-9) [facility] GLUCOSE (AUTOMATED)2020-07-12 17:24:00 Test Item Value Reference Range Interpretation Comments POCT GLU (test code = 8229586799) 171 mg/dL 70-110 H Lab Interpretation (test code = Abnormal 32090-8) [facility] (NA, K, CL, CO2, GLUCOSE, BUN, CREATININE, CA)2020-07-12 11:09:00 Test Item Value Reference Range Interpretation Comments NA (test code = 140 mmol/L 135-145 7190004810) K (test code = 3.7 mmol/L 3.5-5 7795052536) CL (test code = 106 mmol/L 98-108 1226697208) CO2 TOTAL (test code = 27 mmol/L 23-31 9498803283) AGAP (test code = 2-16 9615469430) BUN (test code = 15 mg/dL 7-23 2711734128) GLUCOSE (test code = 98 mg/dL 70-110 0326677286) CREATININE (test code = 1.18 mg/dL 0.6-1.25 2638557846) CALCIUM (test code = 8.3 mg/dL 8.6-10.6 L 7822927455) eGFR Calculation mL/min/1.73m2 (Non-) (test code = 4325621124) eGFR Calculation mL/min/1.73m2 () (test code = 1477331769) DIANE (test code = DIANE) Association of [...] tests). Lab Interpretation Abnormal (test code = 06739-7) [facility] with Etkewifdgmkk6717-41-25 10:44:00 Test Item Value Reference Range Interpretation [...] RDW-SD (test code = 41.7 fL 38.5-51.6 13159-4) RDW-CV (test code = 13.1 % 12.1-15.4 788-0) PLT (test code = See_Comment [Automated 777-3) message] The sy stem which generated this result transmitted reference range : 150 - 328 10*3/ ?L. The reference r batsheva was not used to interpret this result as normal/abnormal . MPV (test code = 10.0 fL 9.8-13 31035-5) NRBC/100 WBC (test See_Comment [Automat ed code = 1720288632) message] The system which generated this result transmitted reference range : 0.0 - 10.0 /100 WBCs. The refer ence range was not u sed to interpret th is result as normal/abnormal . NRBC x10^3 (test code <0.01 See_Comment [Auto mated = 5658418426) message] The s ystem which generated this result transmitted reference range : 10*3/?L. The reference range was not used to interpret this result as normal/abnormal . GRAN MAT (NEUT) % 55.8 % (test code = 770-8) IMM GRAN % (test code 0.30 % = 8918403994) LYMPH % (test code = 25.8 % 736-9) MONO % (test code = 12.7 % 5905-5) EOS % (test code = 4.8 % 713-8) BASO % (test code = 0.6 % 706-2) GRAN MAT x10^3(ANC) 3.52 10*3/uL 1.99-6.95 (test code = 0635522695) IMM GRAN x10^3 (test <0.03 0-0.06 code = 5039624807) LYMPH x10^3 (test code 1.63 10*3/uL 1.09-3.23 = 731-0) MONO x10^3 (test code 0.80 10*3/uL 0.36-1.02 = 742-7) EOS x10^3 (test code = 0.30 10*3/uL 0.06-0.53 711-2) BASO x10^3 (test code 0.04 10*3/uL 0.01-0.09 = 704-7) Lab Interpretation Abnormal (test code = 40766-1) [facility] GLUCOSE (AUTOMATED)2020-07-12 02:49:00 Test Item Value Reference Range Interpretation Comments POCT GLU (test code = 6817498850) 186 mg/dL 70-110 H Lab Interpretation (test code = Abnormal 89669-3) [facility] GLUCOSE (AUTOMATED)2020-07-12 02:49:00 Test Item Value Reference Range Interpretation Comments POCT GLU (test code = 9753908700) 213 mg/dL 70-110 H Lab Interpretation (test code = Abnormal 45890-7) [facility] [id number] 01:02:41 Impression: 1. ?Radiographically unremarkable unenhanced CAT scan of the head.Specifically, no Cat Scan evidence of acute infarcts, intracranial bleeds,or masses. ASPECTS score 10 out of 10 RL: 7423 AFC: 33396 Procedure: ? CT HEAD/BRAIN WOC 7:02 PM Ordering physician: TARA LONG Clinical indication: Headache Comparison: None TECHNIQUE: ?contiguous [...] in appearance. Carotid siphon and vertebral arterycalcifications. [facility], Radiant Results Inft User - 07/11/2020 7:03 PM CSTProcedure: CT HEAD/BRAIN WO07/11/2020 7:02 PMOrdering physician: TARA LONG Clinical indication: HeadacheComparison: NoneTECHNIQUE: contiguous axial images [...] masses.ASPECTS score 10 out of 10RL: 7423AFC: [id number] signed by Elie Delacruz MD at 07/11/2020 7:02 [facility]2020-07-11 19:48:00 Test Item Value Reference Range Interpretation Comments POCT GLU (test code = 1423101560) 162 mg/dL 70-110 H Lab Interpretation (test code = Abnormal 48683-2) [facility] GLUCOSE (AUTOMATED)2020-07-11 17:04:00 Test Item Value Reference Range Interpretation Comments POCT GLU (test code = 2881834268) 171 mg/dL 70-110 H Lab Interpretation (test code = Abnormal 64566-9) [facility] GLUCOSE (AUTOMATED)2020-07-11 13:55:00 Test Item Value Reference Range Interpretation Comments POCT GLU (test code = 7064609069) 183 mg/dL 70-110 H Lab Interpretation (test code = Abnormal 36296-2) [facility] <3 VW [id number] 03:21:53 No acute osseous abnormality identified in the right foot. RL: 460 AFC: [id number] Electronically signedby Celia Koo MD, PhD at [...] abnormality identified in the right foot.RL: 460AFC: [id number] signed by Celia Koo MD, PhD at :21 PM [facility] TexasSEDIMENTATION [id number] 03:09:00 Test Item Value Reference Range Interpretation Comments ESR (test code = >120 See_Comment H [Automated message] 9708837944) The system [employer] generated this result transmitted ref erence range: 0 - 10 m m/HR. The reference r batsheva was not used to interpret this result as normal/abnor mal. Lab Interpretation (test Abnormal code = 94488-0) [facility] TexasCOVID[facility] (ID NOW RAPID TESTING)2020-07-11 02:31:00 Test Item Value Reference Range Interpretation Comments SARS-CoV-2 Rapid ID NOW Not Detected Not Detected (test code = 22342-4) DIANE (test code = DIANE) ID NOW COVID-19 Assay is an isothermal nucleic acid amplification test intended for the qualitative detection of nucleic acid from SARS-CoV-2 viral RNA in nasopharyngeal (FLOOR SUPERVISOR) specimens. It is used under Emergency Use [...] indicated. Lab Interpretation Normal (test code = 79354-1) [facility] (NA, K, CL, CO2, GLUCOSE, BUN, CREATININE, CA)2020-07-11 02:30:00 Test Item Value Reference Range Interpretation Comments NA (test code = 139 mmol/L 135-145 4664188279) K (test code = 3.5 mmol/L 3.5-5 0244739873) CL (test code = 106 mmol/L 98-108 1862648336) CO2 TOTAL (test code = 25 mmol/L 23-31 5242103801) AGAP (test code = 2-16 3137142994) BUN (test code = 11 mg/dL 7-23 1139377115) GLUCOSE (test code = 234 mg/dL 70-110 H 5239267985) CREATININE (test code = 0.76 mg/dL 0.6-1.25 0204220774) CALCIUM (test code = 8.5 mg/dL 8.6-10.6 L 0848161462) eGFR Calculation mL/min/1.73m2 (Non-) (test code = 9344230414) eGFR Calculation mL/min/1.73m2 () (test code = 3171651978) DIANE (test code = DIANE) Association of [...] tests). Lab Interpretation Abnormal (test code = 10994-1) [facility] Texas[facility] (ALB, T.PRO, BILI T, BU/BC, ALT, AST, ALK PHOS)2020-07-11 02:30:00 Test Item Value Reference Range Interpretation Comments TOTAL BILI (test code = 3708887589) 0.5 mg/dL 0.1-1.1 BILI UNCON (test code = 7158245813) 0.5 mg/dL 0.1-1.1 BILI CONJ (test code = 5128992195) 0.0 mg/dL 0-0.3 T PROTEIN (test code = 7766359222) 7.0 g/dL 6.3-8.2 ALBUMIN (test code = 6398888990) 3.8 g/dL 3.5-5 ALK PHOS (test code = 9932461139) 117 U/L 34-122 ALTv (test code = 1742-6) 8 U/L 5-50 AST(SGOT) (test code = 7377373824) 27 U/L 13-40 Lab Interpretation (test code = Normal 62361-1) [facility] TexasProthrombin Time (PT) / [id number] 02:25:00 Test Item Value Reference Range Interpretation Comments PROTIME PATIENT (test See_Comment H [Auto mated message] code = 5964-2) The system [employer] ich generated this result transmitted ref erence range: 12.0 - 1 4.7 Seconds. The reference range was not used to int erpret this result as normal/abnormal . INR (test code = 6301-6) Nor mal INR <1.1; Warfarin Therap eutic range 2.0 to 3. 0 or 2.5 to 3.5, dep ending upon the indica tions. Lab Interpretation (test Abnormal code = 62411-4) [facility] TexasCB with [id number] 02:18:00 Test Item Value Reference Range Interpretation Comments WBC (test code = See_Comment [Automated 6690-2) message] The sy stem which generated this result transmitted reference range : 4.20 - 10.70 10*3/?L. The reference range was not used to interpret this result as normal/abnormal . RBC (test code = See_Comment L [Automated 729-8) message] The sy stem which generated this [...] RDW-SD (test code = 39.2 fL 38.5-51.6 50128-4) RDW-CV (test code = 12.9 % 12.1-15.4 788-0) PLT (test code = See_Comment [Automated 777-3) message] The sy stem which generated this result transmitted reference range : 150 - 328 10*3/ ?L. The reference r batsheva was not used to interpret this result as normal/abnormal . MPV (test code = 9.4 fL 9.8-13 L 97692-7) NRBC/100 WBC (test See_Comment [Automat ed code = 0129306368) message] The system which generated this result transmitted reference range : 0.0 - 10.0 /100 WBCs. The refer ence range was not u sed to interpret th is result as normal/abnormal . NRBC x10^3 (test code <0.01 See_Comment [Auto mated = 5838565488) message] The s ystem which generated this result transmitted reference range : 10*3/?L. The reference range was not used to interpret this result as normal/abnormal . GRAN MAT (NEUT) % 62.1 % (test code = 770-8) IMM GRAN % (test code 0.50 % = 0013029535) LYMPH % (test code = 23.3 % 736-9) MONO % (test code = 9.8 % 5905-5) EOS % (test code = 3.8 % 713-8) BASO % (test code = 0.5 % 706-2) GRAN MAT x10^3(ANC) 4.04 10*3/uL 1.99-6.95 (test code = 0526265603) IMM GRAN x10^3 (test 0.03 10*3/uL 0-0.06 code = 8734505563) LYMPH x10^3 (test code 1.52 10*3/uL 1.09-3.23 = 731-0) MONO x10^3 (test code 0.64 10*3/uL 0.36-1.02 = 742-7) EOS x10^3 (test code = 0.25 10*3/uL 0.06-0.53 711-2) BASO x10^3 (test code 0.03 10*3/uL 0.01-0.09 = 704-7) Lab Interpretation Abnormal (test code = 38885-3) [facility]PO[facility])2020-06-02 18:02:00 Test Item Value Reference Range Interpretation Comments POCT GLU (test code = 3893795976) 162 mg/dL 70-110 H Lab Interpretation (test code = Abnormal 52985-0) [facility]. METABOLIC PANEL (31712)2020-06-02 14:48:00 Test Item Value Reference Range Interpretation Comments NA (test code = 136 mmol/L 135-145 7166776039) K (test code = 4.7 mmol/L 3.5-5 7999714913) CL (test code = 105 mmol/L 98-108 4063083549) CO2 TOTAL (test code = 25 mmol/L 23-31 6926848053) AGAP (test code = 2-16 4052952051) BUN (test code = 17 mg/dL 7-23 7537420187) GLUCOSE (test code = 134 mg/dL 70-110 H 3682556876) CREATININE (test code = 0.80 mg/dL 0.6-1.25 7988475019) TOTAL BILI (test code = 0.3 mg/dL 0.1-1.1 8670750073) CALCIUM (test code = 8.3 mg/dL 8.6-10.6 L 4301245359) T PROTEIN (test code = 6.1 g/dL 6.3-8.2 L 9500467313) ALBUMIN (test code = 3.1 g/dL 3.5-5 L 9075321773) ALK PHOS (test code = 175 U/L 34-122 H 0298412019) ALTv (test code = 39 U/L 5-50 1742-6) AST(SGOT) (test code = 34 U/L 13-40 8526313230) eGFR Calculation mL/min/1.73m2 (Non-) (test code = 3471365553) eGFR Calculation mL/min/1.73m2 () (test code = 8349348337) DIANE (test code = DIANE) Association of [...] tests). Lab Interpretation Abnormal (test code = 61018-3) [facility] GLUCOSE (AUTOMATED)2020-06-02 14:15:00 Test Item Value Reference Range Interpretation Comments POCT GLU (test code = 6254102178) 123 mg/dL 70-110 H Lab Interpretation (test code = Abnormal 56223-2) [facility] GLUCOSE (AUTOMATED)2020-06-02 12:41:00 Test Item Value Reference Range Interpretation Comments POCT GLU (test code = 0472953875) 158 mg/dL 70-110 H Lab Interpretation (test code = Abnormal 09686-6) [facility] TexasPROTHROMBIN TIME / [id number] 11:40:00 Test Item Value Reference Range Interpretation Comments PROTIME PATIENT (test See_Comment H [Auto mated message] code = 5964-2) The system [employer] generated this result transmitted ref erence range: 12.0 - 1 4.7 Seconds. The reference range was not used to int erpret this result as normal/abnormal . INR (test code = 6301-6) Nor mal INR <1.1; Warfarin Therap eutic range 2.0 to 3. 0 or 2.5 to 3.5, dep ending upon the indica tions. Lab Interpretation (test Abnormal code = 28035-9) [facility] WITH [id number] 11:03:00 Test Item Value Reference Range Interpretation [...] RDW-SD (test code = 47.8 fL 38.5-51.6 95245-0) RDW-CV (test code = 14.9 % 12.1-15.4 788-0) PLT (test code = See_Comment [Automated 777-3) message] The sy stem which generated this result transmitted reference range : 150 - 328 10*3/ ?L. The reference r batsheva was not used to interpret this result as normal/abnormal . MPV (test code = 9.9 fL 9.8-13 30811-9) NRBC/100 WBC (test See_Comment [Automat ed code = 7911323879) message] The system which generated this result transmitted reference range : 0.0 - 10.0 /100 WBCs. The refer ence range was not u sed to interpret th is result as normal/abnormal . NRBC x10^3 (test code <0.01 See_Comment [Auto mated = 6280411369) message] The s ystem which generated this result transmitted reference range : 10*3/?L. The reference range was not used to interpret this result as normal/abnormal . GRAN MAT (NEUT) % 50.3 % (test code = 770-8) IMM GRAN % (test code 0.40 % = 9654806068) LYMPH % (test code = 30.5 % 736-9) MONO % (test code = 11.0 % 5905-5) EOS % (test code = 7.4 % 713-8) BASO % (test code = 0.4 % 706-2) GRAN MAT x10^3(ANC) 2.71 10*3/uL 1.99-6.95 (test code = 2586824609) IMM GRAN x10^3 (test <0.03 0-0.06 code = 3462076650) LYMPH x10^3 (test code 1.64 10*3/uL 1.09-3.23 = 731-0) MONO x10^3 (test code 0.59 10*3/uL 0.36-1.02 = 742-7) EOS x10^3 (test code = 0.40 10*3/uL 0.06-0.53 711-2) BASO x10^3 (test code <0.03 0.01-0.09 = 704-7) Lab Interpretation Abnormal (test code = 01239-6) [facility] GLUCOSE (AUTOMATED)2020-06-02 10:52:00 Test Item Value Reference Range Interpretation Comments POCT GLU (test code = 5593853749) 141 mg/dL 70-110 H Lab Interpretation (test code = Abnormal 23523-4) [facility] GLUCOSE (AUTOMATED)2020-06-02 02:35:00 Test Item Value Reference Range Interpretation Comments POCT GLU (test code = 4308958275) 154 mg/dL 70-110 H Lab Interpretation (test code = Abnormal 66892-3) [facility] GLUCOSE (AUTOMATED)2020-06-01 23:15:00 Test Item Value Reference Range Interpretation Comments POCT GLU (test code = 9804132361) 72 mg/dL 70-110 Lab Interpretation (test code = Normal 48657-2) [facility] GLUCOSE (AUTOMATED)2020-06-01 23:15:00 Test Item Value Reference Range Interpretation Comments POCT GLU (test code = 0523330078) 109 mg/dL 70-110 Lab Interpretation (test code = Normal 65992-9) [facility] GLUCOSE (AUTOMATED)2020-06-01 13:49:00 Test Item Value Reference Range Interpretation Comments POCT GLU (test code = 9730306122) 115 mg/dL 70-110 H Lab Interpretation (test code = Abnormal 28077-1) [facility] GLUCOSE (AUTOMATED)2020-06-01 02:57:00 Test Item Value Reference Range Interpretation Comments POCT GLU (test code = 8004031620) 84 mg/dL 70-110 Lab Interpretation (test code = Normal 71989-3) [facility] GLUCOSE (AUTOMATED)2020-05-31 23:10:00 Test Item Value Reference Range Interpretation Comments POCT GLU (test code = 6670292640) 115 mg/dL 70-110 H Lab Interpretation (test code = Abnormal 16600-9) [facility]LAB ONLY COVID [id number] 20:03:00COVID DMT InterpretationInterpretation/Recommendations: Molecular NAAT Tests for Active Infection with the SARS-CoV-2 Virus: This patient has a history of testing negative on multiple occasions for jhrZUUI-JuX-0 virus that causes COVID-19 illness. The current [...] COVID-19 testing the patient has had at [facility], including molecular NAAT testing (more commonly known as PCR testing and Rapid ID Now testing) and antibody testing. It does not take into account any testing that a patient has had outside of the [facility] medical record. [facility] LABORATORY SERVICESCOVID KsepooeNQZR-AgK-5 Rapid ID NOW (no units) ? ? Date ? Value ? 05/29/2020 ? NotDetected ? ? ? 03/16/2020 ? Not Detected ? ? ? 02/03/2020 ? Not Detected ? ? ? 11/16/2019 ? Not Detected ? ? ? 09/17/2019 ? Not Detected ? [facility]UnProv[facility]2020-05-31 18:06:00 Test Item Value Reference Range Interpretation Comments POCT GLU (test code = 2089941617) 155 mg/dL 70-110 H Lab Interpretation (test code = Abnormal 78796-3) [facility] GLUCOSE (AUTOMATED)2020-05-31 18:06:00 Test Item Value Reference Range Interpretation Comments POCT GLU (test code = 6834689594) 124 mg/dL 70-110 H Lab Interpretation (test code = Abnormal 84310-9) [facility] [id number] 12:46:00 Test Item Value Reference Range Interpretation Comments PROTIME PATIENT (test See_Comment H [Auto mated message] code = 5964-2) The system [employer] generated this result transmitted ref erence range: 12.0 - 1 4.7 Seconds. The reference range was not used to int erpret this result as normal/abnormal . INR (test code = 6301-6) Nor mal INR <1.1; Warfarin Therap eutic range 2.0 to 3. 0 or 2.5 to 3.5, dep ending upon the indica tions. Lab Interpretation (test Abnormal code = 57944-7) [facility] (NA, K, CL, CO2, GLUCOSE, BUN, CREATININE, CA)2020-05-31 11:30:00 Test Item Value Reference Range Interpretation Comments NA (test code = 135 mmol/L 135-145 8867866677) K (test code = 4.3 mmol/L 3.5-5 6036778771) CL (test code = 106 mmol/L 98-108 4902691097) CO2 TOTAL (test code = 22 mmol/L 23-31 L 8176443680) AGAP (test code = 2-16 1739287287) BUN (test code = 16 mg/dL 7-23 3267986945) GLUCOSE (test code = 105 mg/dL 70-110 4493024715) CREATININE (test code = 0.59 mg/dL 0.6-1.25 L 0686732516) CALCIUM (test code = 8.3 mg/dL 8.6-10.6 L 9088529789) eGFR Calculation mL/min/1.73m2 (Non-) (test code = 0312400543) eGFR Calculation mL/min/1.73m2 () (test code = 8639950573) DIANE (test code = DIANE) Association of [...] tests). Lab Interpretation Abnormal (test code = 48516-6) [facility] WITH [id number] 11:17:00 Test Item Value Reference Range Interpretation Comments WBC (test code = See_Comment [Automated 0690-2) message] The sy stem which generated this result transmitted reference range : 4.20 - 10.70 10*3/?L. The reference range was not used to interpret this result as normal/abnormal . RBC (test code = See_Comment L [Automated 769-8) message] The sy stem which generated this [...] RDW-SD (test code = 46.5 fL 38.5-51.6 66610-4) RDW-CV (test code = 14.5 % 12.1-15.4 788-0) PLT (test code = See_Comment [Automated 777-3) message] The sy stem which generated this result transmitted reference range : 150 - 328 10*3/ ?L. The reference r batsheva was not used to interpret this result as normal/abnormal . MPV (test code = 10.2 fL 9.8-13 99959-2) NRBC/100 WBC (test See_Comment [Automat ed code = 8975108136) message] The system which generated this result transmitted reference range : 0.0 - 10.0 /100 WBCs. The refer ence range was not u sed to interpret th is result as normal/abnormal . NRBC x10^3 (test code <0.01 See_Comment [Auto mated = 0562340787) message] The s ystem which generated this result transmitted reference range : 10*3/?L. The reference range was not used to interpret this result as normal/abnormal . GRAN MAT (NEUT) % 54.6 % (test code = 770-8) IMM GRAN % (test code 0.40 % = 3773693888) LYMPH % (test code = 27.0 % 736-9) MONO % (test code = 8.3 % 5905-5) EOS % (test code = 9.3 % 713-8) BASO % (test code = 0.4 % 706-2) GRAN MAT x10^3(ANC) 3.10 10*3/uL 1.99-6.95 (test code = 9308456712) IMM GRAN x10^3 (test <0.03 0-0.06 code = 7849964354) LYMPH x10^3 (test code 1.53 10*3/uL 1.09-3.23 = 731-0) MONO x10^3 (test code 0.47 10*3/uL 0.36-1.02 = 742-7) EOS x10^3 (test code = 0.53 10*3/uL 0.06-0.53 711-2) BASO x10^3 (test code <0.03 0.01-0.09 = 704-7) Lab Interpretation Abnormal (test code = 86827-9) [facility] GLUCOSE (AUTOMATED)2020-05-31 03:18:00 Test Item Value Reference Range Interpretation Comments POCT GLU (test code = 3608805154) 80 mg/dL 70-110 Lab Interpretation (test code = Normal 04431-6) [facility] GLUCOSE (AUTOMATED)2020-05-30 23:30:00 Test Item Value Reference Range Interpretation Comments POCT GLU (test code = 2355031379) 98 mg/dL 70-110 Lab Interpretation (test code = Normal 42361-4) [facility] GLUCOSE (AUTOMATED)2020-05-30 19:00:00 Test Item Value Reference Range Interpretation Comments POCT GLU (test code = 7448250616) 153 mg/dL 70-110 H Lab Interpretation (test code = Abnormal 59378-3) [facility] GLUCOSE (AUTOMATED)2020-05-30 14:44:00 Test Item Value Reference Range Interpretation Comments POCT GLU (test code = 4953332628) 179 mg/dL 70-110 H Lab Interpretation (test code = Abnormal 39642-9) [facility] Met[facility] (NA, K, CL, CO2, GLUCOSE, BUN, CREATININE, CA)2020-05-30 12:44:00 Test Item Value Reference Range Interpretation Comments NA (test code = 136 mmol/L 135-145 0392435077) K (test code = 4.0 mmol/L 3.5-5 5834785935) CL (test code = 106 mmol/L 98-108 2524011916) CO2 TOTAL (test code = 25 mmol/L 23-31 3575461308) AGAP (test code = 2-16 6805517807) BUN (test code = 14 mg/dL 7-23 4580588978) GLUCOSE (test code = 179 mg/dL 70-110 H 1901829926) CREATININE (test code = 0.68 mg/dL 0.6-1.25 4701535759) CALCIUM (test code = 8.2 mg/dL 8.6-10.6 L 4026548620) eGFR Calculation mL/min/1.73m2 (Non-) (test code = 7822076911) eGFR Calculation mL/min/1.73m2 () (test code = 7559355938) DIANE (test code = DIANE) Association of [...] tests). Lab Interpretation Abnormal (test code = 95128-9) [facility] with [id number] 12:29:00 Test Item Value Reference Range Interpretation Comments WBC (test code = See_Comment [Automated 1722-2) message] The sy stem which generated this result transmitted reference range : 4.20 - 10.70 10*3/?L. The reference range was not used to interpret this result as normal/abnormal . RBC (test code = See_Comment L [Automated 405-8) message] The sy stem which generated this [...] RDW-SD (test code = 45.6 fL 38.5-51.6 24654-6) RDW-CV (test code = 14.6 % 12.1-15.4 788-0) PLT (test code = See_Comment [Automated 777-3) message] The sy stem which generated this result transmitted reference range : 150 - 328 10*3/ ?L. The reference r batsheva was not used to interpret this result as normal/abnormal . MPV (test code = 10.4 fL 9.8-13 11017-9) NRBC/100 WBC (test See_Comment [Automat ed code = 9480636311) message] The system which generated this result transmitted reference range : 0.0 - 10.0 /100 WBCs. The refer ence range was not u sed to interpret th is result as normal/abnormal . NRBC x10^3 (test code <0.01 See_Comment [Auto mated = 9728678926) message] The s ystem which generated this result transmitted reference range : 10*3/?L. The reference range was not used to interpret this result as normal/abnormal . GRAN MAT (NEUT) % 71.1 % (test code = 770-8) IMM GRAN % (test code 0.40 % = 2743457725) LYMPH % (test code = 16.1 % 736-9) MONO % (test code = 6.8 % 5905-5) EOS % (test code = 5.2 % 713-8) BASO % (test code = 0.4 % 706-2) GRAN MAT x10^3(ANC) 4.93 10*3/uL 1.99-6.95 (test code = 4178784168) IMM GRAN x10^3 (test 0.03 10*3/uL 0-0.06 code = 9829364948) LYMPH x10^3 (test code 1.12 10*3/uL 1.09-3.23 = 731-0) MONO x10^3 (test code 0.47 10*3/uL 0.36-1.02 = 742-7) EOS x10^3 (test code = 0.36 10*3/uL 0.06-0.53 711-2) BASO x10^3 (test code 0.03 10*3/uL 0.01-0.09 = 704-7) Lab Interpretation Abnormal (test code = 47521-3) [facility] GLUCOSE (AUTOMATED)2020-05-30 02:46:00 Test Item Value Reference Range Interpretation Comments POCT GLU (test code = 7949595931) 174 mg/dL 70-110 H Lab Interpretation (test code = Abnormal 53838-8) [facility] GLUCOSE (AUTOMATED)2020-05-30 02:18:00 Test Item Value Reference Range Interpretation Comments POCT GLU (test code = 7961541829) 276 mg/dL 70-110 H Lab Interpretation (test code = Abnormal 72428-7) [facility] TexasPROTHROMBIN TIME / [id number] 02:13:00 Test Item Value Reference Range Interpretation Comments PROTIME PATIENT (test See_Comment [Auto mated message] code = 5964-2) The system [employer] generated this result transmitted ref erence range: 12.0 - 1 4.7 Seconds. The re ference range was not u sed to interpret this result as normal/abnor mal. INR (test code = 6301-6) Nor mal INR <1.1; Warfarin Therap eutic range 2.0 to 3. 0 or 2.5 to 3.5, dep ending upon the indica tions. Lab Interpretation (test Normal code = 64413-6) [facility] TexasLautic Acid Whole [id number] 02:00:00 Test Item Value Reference Range Interpretation Comments LACTIC ACID (test code = 1.39 mmol/L 1462583730) [facility] TexasCOVID-[facility] (ID NOW RAPID TESTING)2020-05-29 20:21:00 Test Item Value Reference Range Interpretation Comments SARS-CoV-2 Rapid ID NOW Not Detected Not Detected (test code = 04295-4) DIANE (test code = DIANE) ID NOW COVID-19 Assay is an isothermal nucleic acid amplification test intended for the qualitative detection of nucleic acid from SARS-CoV-2 viral RNA in nasopharyngeal (FLOOR SUPERVISOR) specimens. It is used under Emergency Use [...] indicated. Lab Interpretation Normal (test code = 91003-0) [facility] TexasXR FOOT <3 VW [id number] 18:08:54 1. ?Lucency fifth metatarsal head suspicious for osteomyelitis. RL: 1105 HISTORY: ?osteo ? right foot COMPARISON: ?None FINDINGS: 3 views right foot. There is medial lucency fifth metatarsal head suspicious suspicious forosteomyelitis. No fr acture or foreign body demonstrated. Degenerative changes seen in thefirst MTP joint and in the talonavicular joint dorsally. [facility], Radiant Results Inft User - 05/29/2020 12:09 PM CSTHISTORY: osteo right footCOMPARISON: NoneFINDINGS:3 views right foot.There is medial lucency fifth metatarsal head suspicious suspicious forosteomyelitis.No fracture or foreign body demonstrated. Degenerative changesseen in thefirst MTP joint and in the talonavicular joint dorsally.IMPRESSION1. Lucency fifth metatarsal head suspicious for osteomyelitis.RL: 1105 [facility] VW [id number] 18:07:42 Impression: Osteopenia. Left knee osteoarthritis. Osteochondroma. No acute bony abnormality identified. End of Report. RL: 5500 Ordering Physician: ROSA M GALVAN. Procedure: XR FEMUR 2 VW LEFT Comparison: None. History: osteo . Findings: Moderate osteopenia limits evaluation for bony pathology. There has been htjwmf-wxs-crhn amputation. Jvvf-lt-ioloexob tricompartmental left knee osteoarthritis. No fracture, dislocation, or bony erosionis seen. There is a focal bony excrescence off the lateral left femoral diaphysisappearing contiguous with the medullary cavity measuring 1.2 x 0.3 cmlikely reflecting an osteochondroma. Clinical correlation recommended. [facility], Radiant Results Inft User - 05/29/2020 12:08 PM CSTOrdering Physician: ROSA M GALVAN.Procedure: XR FEMUR 2 VW LEFTComparison: None.History: osteo . Findings:Moderate osteopenia limits evaluation for bony pathology. There has been skmvfc-jzx-wvqf amputation.Nkhp-gp-vvtcsnzz tri compartmental left knee osteoarthritis.No fracture, dislocation, or bony erosion is seen.There is a focal bony excrescence off the lateral left femoral diaphysisappearing contiguous with the medullary cavity measuring 1.2 x 0.3 cmlikely reflecting an osteochondroma. Clinical correlation recommended.IMP RESSIONImpression:Osteopenia.Left knee osteoarthritis.Osteochondroma.No acute bony abnormality identified.End of Report.RL: [address] [facility]. METABOLIC PANEL ([id number])2020-05-29 16:35:00 Test Item Value Reference Range Interpretation Comments NA (test code = 134 mmol/L 135-145 L 8597759612) K (test code = 4.3 mmol/L 3.5-5 4335095370) CL (test code = 103 mmol/L 98-108 5644029944) CO2 TOTAL (test code = 21 mmol/L 23-31 L 5308189911) AGAP (test code = 2-16 6673684170) BUN (test code = 14 mg/dL 7-23 3221254652) GLUCOSE (test code = 372 mg/dL 70-110 H 2140558591) CREATININE (test code = 0.61 mg/dL 0.6-1.25 8772005705) TOTAL BILI (test code = 0.6 mg/dL 0.1-1.6 5329109447) CALCIUM (test code = 9.1 mg/dL 8.6-10.6 2455397950) T PROTEIN (test code = 7.6 g/dL 6.3-8.2 2946054338) ALBUMIN (test code = 4.1 g/dL 3.5-5 6811975926) ALK PHOS (test code = 126 U/L 34-122 H 9821389789) ALTv (test code = 11 U/L 5-50 1742-6) AST(SGOT) (test code = 24 U/L 13-40 1451437542) eGFR Calculation mL/min/1.73m2 (Non-) (test code = 5765804830) eGFR Calculation mL/min/1.73m2 () (test code = 3075097908) DIANE (test code = DIANE) Association of [...] tests). Lab Interpretation Abnormal (test code = 54058-8) [facility] WITH [id number] 16:28:00 Test Item Value Reference Range Interpretation [...] RDW-SD (test code = 45.1 fL 38.5-51.6 76647-0) RDW-CV (test code = 14.4 % 12.1-15.4 788-0) PLT (test code = See_Comment [Automated 777-3) message] The sy stem which generated this result transmitted reference range : 150 - 328 10*3/ ?L. The reference r batsheva was not used to interpret this result as normal/abnormal . MPV (test code = 10.9 fL 9.8-13 23087-2) NRBC/100 WBC (test See_Comment [Automat ed code = 9221175045) message] The system which generated this result transmitted reference range : 0.0 - 10.0 /100 WBCs. The refer ence range was not u sed to interpret th is result as normal/abnormal . NRBC x10^3 (test code <0.01 See_Comment [Auto mated = 8383368186) message] The s ystem which generated this result transmitted reference range : 10*3/?L. The reference range was not used to interpret this result as normal/abnormal . GRAN MAT (NEUT) % 62.2 % (test code = 770-8) IMM GRAN % (test code 0.70 % = 8994732936) LYMPH % (test code = 23.2 % 736-9) MONO % (test code = 7.4 % 5905-5) EOS % (test code = 6.0 % 713-8) BASO % (test code = 0.5 % 706-2) GRAN MAT x10^3(ANC) 4.99 10*3/uL 1.99-6.95 (test code = 4448041641) IMM GRAN x10^3 (test 0.06 10*3/uL 0-0.06 code = 2019692059) LYMPH x10^3 (test code 1.86 10*3/uL 1.09-3.23 = 731-0) MONO x10^3 (test code 0.59 10*3/uL 0.36-1.02 = 742-7) EOS x10^3 (test code = 0.48 10*3/uL 0.06-0.53 711-2) BASO x10^3 (test code 0.04 10*3/uL 0.01-0.09 = 704-7) Lab Interpretation Abnormal (test code = 93701-5) [facility] [id number] 15:58:00 Test Item Value Reference Range Interpretation Comments LACTIC ACID (test code = 2.60 mmol/L 3879565087) [facility] GLUCOSE (AUTOMATED)2020-03-26 22:39:00 Test Item Value Reference Range Interpretation Comments POCT GLU (test code = 2310630186) 245 mg/dL 70-110 H Lab Interpretation (test code = Abnormal 79335-7) [facility] GLUCOSE (AUTOMATED)2020-03-26 19:02:00 Test Item Value Reference Range Interpretation Comments POCT GLU (test code = 4651333002) 158 mg/dL 70-110 H Lab Interpretation (test code = Abnormal 53434-4) [facility] [id number] 16:56:00 Test Item Value Reference Range Interpretation Comments Case Report (test code Surgical Pathology ? ? = 1815321815) ?Case: [id number] ? Authorizing Provider: ?Tato Shearer MD ? Collected: ? 03/18/2020 1516 ?Ordering Location: ? ? [facility] OR ? Received: ?03/18/2020 1653 ? Department ? Pathologist: ? Des Pond MD PHD ?Specimen: ? ?LEG, LEFT, BELOW KNEE, left leg BKA ? Final Diagnosis (test g7lohBNbNWPro7qdUGConV code = 8496734228) FuZzEwMzNcZnRuYmpcdWMx PXpeydLnYCeqv5OmV8GeZm AwMFxhbnNpXGRlZmxhbmcx VRDrEOH6zoIjSMIiKYqnRQ TyWFgzIy9vkQQfvUwhYoYo HKGry6iehkZPgfceuAg3k3 ftJNSeMvH9zRUoUEjeR8ra pmWxzRCtXQGsYOg4dBsnQl EnTSTle4Nwxf9vPVZlgVDs a7R8LZCDr6BsrUVpHA6dpd v0hOidM93et9Z4GaouT9lw ZWQwXGdyZWVuMFxibHVlMC Z2KQHiSUB6QAwewkUqmcL1 ELapoTQwLqX5EHz5q2rpjU chPOZdVYZ4w9ieZUqvjuUy BD8tbk3zrVy6u4kdxwHfSH ZvINKrdNPTHCGtW9MucUan Kc7ghCr9gWrjEpxmPDB8Eo o8MQ3lgj66fqb2gImkEIDk thkoQnU7DJyoTIQmywsrPK m5YUygLRAlgSGcKNLwuOMy C9RlEUzbCO7veqq9AhBuBN 4wpfyfRQfrYWFuQGF3QkBq MKLxl8YzjrakQbHpby1umi 72ZNN3i6CmwPnqHUR8TGD4 DiUnMj2ohJNlPJEvWX3qHl GuqGObSBJvym02lMglCWcx nhQdcR4vYaOkQOTnqVDtCR WlEKXgG9fxCxBnfkQrZ4fg R9WdFWVdWAClTFRpHhLnkh Uky9Dfqw21QLMwfrBsu7Ub hTFcsPp0o4usLAQhGOHjqN myq5akAXD0WHSxQ6W9xNZt z1brOKhzNZJcyQP4vhVmUL PyiSLtO2EzaL4qHAtaXW8m jvt8h1gdRpDwUR1avkjjq1 pqAKliAZRtCLT3OsOrHFNp s1CremgzAqFom5NgnSMyAX jiK78wm706OVEobaXmP8yx bGFpblxwbGFpblxmMFxmcz IwXHFsXHBsYWluXGYwXGZz YrHqqTtxdM8zVcArCoFfJP xwYXJcbHRycGFyXHFsXHBs YWluXGYwXGZzMjBccGxhaW 5cZjFcZnMyMCBBLiBMRUZU WUpGFvdmIdCUB6otQ89QZW omEY9GEIIQNGdPZrncnYdd bV9cAoLcLnLxSVjnIN7yMG ZzQ2cxoYYcJCAuCNQnF9hp UhMpfI7gyFyjHigqSlNpHk VtAXrtMEDkvZljyZ9qXvCc BfOsNHGwZOJcAP2aTASAQT OLWLQvK8HFV0COPdNjM1hP VITBAZRQTVexDMYQO3PNAu XZP7ACQCIDI21zoYrefW1j VnGxBwZzAXrkQL7rEUXfA5 otwSVaTBUqTRRfS3teHuLm dS1xbVbtZxtgYlDzLiLlUW uuFOVkvSokyR5zLtIrGsFj YLVsECQfTW7qUbVIU3ELAl BXSVRIIFNFVkVSRSBNRURJ UMdbNZpOVLDCOr9MTLbrND 2JCPmTJHwDGTtkB1SUXs0D SVNccGFyICAgICAgLSBOTy JVR4FSZ46YHZiPJOyEUUsV TE1ADJYGQIHqJXVdPUwoEQ YyXGZzMjBcbGFuZzEwMzNc aGljaFxmMlxkYmNoXGYyXG eqY4reGrBaF4JtXHMfVzMi cSMyMGIyslRyz0BhWEXnLU Z4LBtsLHczgRpsbKFgdaem MFxmczIwXHBsYWluXGYxXG VsMiHsWYUzTYEtJPESL6CP BSfKKjMJFOZYIJ1IRFYIWV JMRVxwYXJccGFyXHBsYWlu XGYxXGZzMjJcbGFuZzEwMz NcaGljaFxmMVxkYmNoXGYx PIjoU1kxOxDuK5OiRUXkMe JkOGcon1GuckmhAVZoYJ7V XYUnXY40FwNjHiKxXWo9KG SoXT8dyUajcY9tEwIlPyKu FUfrPIUzlONhLNFmvk55JT O1KbYep4Y5ZNSdRbVbASFx FB9peHgjCFYvAY7qZJZyN7 emlC4xqvz3JcSsIUFhMkH0 BJBlnzI5Fhq1QJGkYGqbw4 iee9FqZ9IbqTJyfPu4w3wt VGTcHjM1eBUeRGivA3zwti UfeSUbKLRvMJq6jWfvQzYa XCYlw2cdorRfVgDiQRMnGU SoEYVbaUsdnsp3iX78UOIx mF9xfMExHDtckhCaHjT0UT lcEXEaJgW7EIOrrCBzFOHi J3iuNGOtSGzgUZCgYIcvbM XeYUS2pBcrk9B0nKWeuRCc uJybEpOwNtAvBVTRa9FhCR s5iTpyK4JxKKRyRcM8hBHq LGXfVVcxAZTvLNUltgX8hE 49CYhmrtU5nDImg1Yke78s m282nK9whKRgKHB3VBHkEC ZmmTVuBEYjLJJ1RYCcfYTt X4kzTXOsNH6hsewcJKzyDG vkBZSgbXJ8QGNyvIOpW6Qp NIQwPIwwJKInqrn5RyPdJl 8nsWKtnQzxNGvar3hyu7dp pODvGvm1OVWyXfWvGtcbDQ szb9Sjd1tyEQXlep0oVBR6 lVNskQnxd2J9eBKoNGXsmN KpihNrWYUqPnG1YNofLL9k jm27UIIsDIT7zt6soQQakF rnnnWqsUIkQVhcS8QuUKYk o076VIBdG8ZuOGUuz6X6co IpDxPnRBGzzAX8obH6GRUh DXe8aAEgxgJ3bkVqyUYdB4 azzM1fEZPxCO8ebgnbs6hl WRvvBHvtWUWwrSY0skT0ZD ZjcXDcG8ZzqX5eRTYwFAjr RRPjyxf1KpLxWr4wvTWdrG cyMFxzYmtwYWdlXHBnbmNv bnRccGduZGVjXHBsYWluXH BsYWluXGYwXGZzMjRccWxc fZijqA7bTmGjSmZzUPhxEX 2uSAWnU0ojcYIlNTJpHHRw K5ilRpCemJ0flHfmKKvdOe JcZnMyMFxwYXIgSSBoYXZl PSXngsPcwxZqeVwdmlN2aN O7TMOsXUpwNDMyVHNhxTFn om4heLjsRLKySK2hBRJbhz EzAGupdZgpVKhgAGU7JUBy bWVudHMgbWFkZSBieSByZX XiZFEzfXUtVRNupVfbj3Sn k5UycMA5cQ4dk5zma2BdGJ GxoZJ8OJ54ycV0jI3hHSMa PX1wLITsWN5hgPJviSMoMR Mna92zdEtlozQuUDHvsgNx XHBsYWluXGYyXGZzMjhcbG FuZzEwMzNcaGljaFxmMlxk LlJnGZNyKLpoB1obLcJwMk YeTYeiFCX6cD== Clinical Information Left foot pain (test code = [M79.672] 9595772657) Gross Description (test x8vkgJWcIKPrqCWiKuJjGV code = 8914950872) HdKZLxe4ytYXXuwWOwElLw MzNcZnRuYmpcdWMxXGRlZm Lri1rku087kXJgr3hfWKRi SeO0zPTrDNHayNGyG708GB HiHZpqh2tox4ToMIVwqNUj m6Z7RDYJrirrzQx0hXsiL8 4kw5I2MwwyU4tmZENbBINo Z2XgYY9iGDIfZdt8MCR4VQ A6OPYbVUFaH2RdTZ2oIFSl qVGhXQh5s6rgqNbqXHYkWO L6i7lbZAzqpzWcFE0kfj5s uHh9w0xrzoGxTZGsSVVytS XUQROcN5NceOvwQr6lrRi9 vTdeUwpuUGR3Uhd1AS2fkw 04wzb2jMxqHAExneysSyS3 CNdcSQMusbhhCAv7YUdaCP FqxYBvUMLkgCCbR3GrCUde FJ9nfrl5XnJlCO1jrufdKK vhFYHrSHA9SlVtVNGqf1Cl nxtpHcKvlu1xzj74TRA3c0 OuhEztTDO2DSF7KnVnKv8t bLPwHLTbRT8iLmTquYNmCG Eviz52wRixJEwzbnEcgR7v OrTzMXKurSVwIPPoKM6ulS ZlZMYzpA0vlsktZBHyDdQc bxzfBTPbcFjjhuOgTx2mpE ehDTF5HBsiM7eeoL3xYdD8 CElqE4cpnX9hMMh0PHlvhX C5VYJmlE9oVY4gyfqcn9bx MRV3VZirLSUyslK6czYqYM SijOVsI3LjtM08AtGifZKv T5RpyM5rNBwgYDOhctc6Ns RiGx3jnGQuiFR0OWmbQjzh YWdlXHBnbmNvbnRccGduZG VjXHBsYWluXHBsYWluXGYw QRXvOhIceMgkqQnmyH3mFg TfZgFhZKqoAM4xBROyW6nc gBBaOMNlOIReI6qjAzQxwQ 9jaFxmMVxmczIwIFNwZWNp iZIoGDLacTWgmdJyPLe4VJ KwHwIfi7evpNUmXMgiMDO3 wAApCFBpJFEdKGCbZL63Z8 MgbmFtZSwgVUggbnVtYmVy OYRxeKMrBYXzHUC3AXMmFG juugJgjzAqNNTrGAN1DSqv HxURT4YhMJDeRWQtn26duO E4btWsVoPnucQwuCC1dUZ1 VLMnxZVcaZXJI7WlHBkaCB hddM8wzI5bBiVlRE7qWHCs CZyyPQqqusm3bRtvgOWspI D1hdDib3J6FHEsb5Bot1tt ljWgtzZkh92zkHL8xXJiuN RigiEgFDQ9xG9mDI4cqgjd bjogMjAuMCBjbSBpbiBsZW 8vzZinZOeqtGwdDSWwmz0u d7k4XMHajzSbDHVhBVCuOE gfjpMqsQ4fLTVxsA6uTBRx ZXMuIFRoZSBhbnRlcmlvci Ikw0hiLUHtj0PxdUiwbjZt ZXIcjZ2rSHd2VL8dxdNvFC 9iAQWvRWMtt3tjnTRyGPGl r56ywNqvAXQdj1Kashagqc Acd5xlPECjPMJmz5F5JIDy q3L1MBFrBFPhU2Pyu87mgM QyY3luAlLPxUOrtEyekOCj EZGxuzHdxmVhOXY3lE1eFW 9wimhewcCtnaBkID67BDTu YUiiQOobdqz2cUHnnpLlkN hlIGZpYnVsYXIgcmVzZWN0 rD2yWQ6gloeihuHrfKQkfx SoXVCkJKGnvNUohi91oP3z pCHvzg5mALIyADU0eXKhLW iesvJtYAG8aE4qKN3vtgin cn5gGXSonfitSVWaPIdyVR TiXKZseGZqJSmhPXB4ruId J7JnPjqskVRwRSFdy9gfFL MtEVqsSqVsfinqTwtvw3dg J6o8cRkzMARfyTV2j3XuXR EsdD2oo9b3yMLmZLGyeGWz XC3pGIAnMBNtRU5ubetdQI RwgwLxk80rHhObWWZ7WMN1 v95lc18ogBtxMV9bKUhntN NkktDxeFA7ATTahNJne7Qt S6Nbx3CnxSnaHCsnKq1fZT kyqdUkyLNqCQXiqz08th0u bOIeybvkRENuv2onMG9zBL 6jV7PiuTzwLRRnWJZhG2Ab bHkgdWxjZXJhdGVkIGFyZW YaPNElUDgfDo9xEQKlEAA1 wTIaMXDqvKOjle5uoUMhuA ddwYPuIZxefZ4dDQLeWQMm chR1uULesY2nnCHkpp0pLS VttyYfBIYzKEWoAVgfEU8v ENFlMP44TCPcANWqDUX8GQ 4eZPCmNSFnTQZtWDMoSm1i OFBpEZBca93mfJdxRJLdu4 SxjbpsplSyv9qvCCYsu4Ud lKsojiVwDPSudP6wOIHaqZ FyXHBhciBUaGUgdWxjZXJh yECnIOEeRH82tO8jRpipUO CdntNrVJbjPOMoD7Vwc08w DBA1siKcTBIsNNsltiVgxB VrRLDpKIU8DKglk6bbdA0b ozYqZLYrYDLtx2OdXgI0bX OtbTGyg8m8yDY5QNudc8rf H2HiMG1dILL1dcYiYM61CI J6uTDvhKRvx6vsO0qeP8Xw l7OniVMcxtOteHSvqvS4zW RhuW0aOTEgyMoeJzAiGQsq WD2ilSUuPr6bFE7iIIgjWV Anx8L1pNOsIGK3kdPhQRSq HIFdFHUan1RsB7IeWUN6qn TxMMSsKXcmFWInqh11yI1d zHYgiKNsVPSdq4Quuy2zuE WjuJ5vgGzjVPUutz5yPWHk LJHjdREwjMnwXJUaka01qS 0hxIDfvCX9CJBsq9Icdi2k bCLjaZ4ttAxnCDFuw1Dgir jmxiQ7nBJnNZzvGDA5HFH7 UVGudxOwav3ixRHbfeNaFu eqSflvZDT3KK5sb5veIW0u FJEnHHNixvTcqwwnibV1qY QtWLedTT5sATBvjuCapUtu IHBlZGlzIGFydGVyaWVzLi DHnHXmqjKbFHfuuE4dDZWz DbRztLpuq0XtZO1bASDlGU TcPLhctSIpI9Xql5JqwQO8 yzQraNNpy9UprXPmPPMycO Tqp8TkgZG5uKWrHLGtD3Ot v19lDOXfZLYiqTBjoDM9KM PngD0mDLSoNBxjMPWwp8Sj ZYQjQFmzpCRsW7M1bY4nOK 1jOWH9GttkWOUfqYNhJQrn epGyqUyxyF6lLvUjCjLmNG guGV1hRXAsA6gbhYSwKJNz EQWyC5idJsFqzX4rtMnoMI cjxgWuNBSkXFZkRJU8EPYk YWluXGYxXGZzMjBcbGFuZz EwMzNcaGljaFxmMVxkYmNo MNGvLOcoX1wuTxMsVeMqVZ FxNgt0XQmmvSRmxzupSNgi czIwXGxhbmcxMDMzXGhpY2 nbCiRxUHJjxJfeOChja0Fz XGYxXGZzMjBcdTgyMTEgXC w2DwacwLPphgffMMwtncSv SGruioxrLIFvSNpmM9vcTj DlUXOyyOseRLqla5MnHKYn AWOxHvZiEG94LVVgw2WijS lxmHCjWLDxc5Z5kSJmJNX7 bmRsZSwgcmVkXHBsYWluXG YxXGZzMjBcbGFuZzEwMzNc aGljaFxmMVxkYmNoXGYxXG ffI1gdFwJqZuJwSUa3EWLd NBVfWzx9DQGnECajWQJjHK ZzMjBcbGFuZzEwMzNcaGlj aFxmMVxkYmNoXGYxXGxvY2 xeBdQhXrVjOYFds9L9ZDTz z7FbpDbzeRMfOQZur6U5uS CiUIT0svTnEBxks0Mzhvop XHBsYWluXGYxXGZzMjBcbG FuZzEwMzNcaGljaFxmMVxk YuTcRLNsPQujD4ntRpGwDe HxMFu3ARVwLWCnBnc8FGKf YWluXGYxXGZzMjBcbGFuZz EwMzNcaGljaFxmMVxkYmNo YNGsRTulR2qyVuOcQrGfOQ BwZXJvbmVhbCBhcnRlcnks WNSqvO4eLAVoWZ6jl6SdfB MgcGVkaXNccGFyXHBhciBT ECG1bM9oGJNjYCJ8ODZshy DSTNbkHT30VQRca5Tfd0se qjRmmhHgt55liMT3hZXvfB BywdFiOEO8aU8cDM2ochqe ijgrHV4gCjTpDPxthtFbqp HiPA11IJClseFzuYIhPJDa NhYOn7H6KYHtk1Rna6xjez Pue1E7FMToq7Y3PTWwWMKj P7Weu89bvJEaJ1sbGNTtsr BmYWNlLCByZXByZXNlbnRh jNa7GGwoITYjAPW6XR2cvj SfbnLkzNK8bJGuiEhxfQEv XMPdscAudrOwARU3aQ9rVP 0tekqszyfxcoUsavKvWB49 YFUwvzDqrJGtJMX9FfXNVW MbaSmzpmDiQHTwW3Zyx84w yFGuH0ryehuwKM7uAaWpTG xsEZSeMQW7QUQbk8S4vPSf PGJ2dbQaGUXdZYQmdSGfa3 SxyYL9zXPtUZLgduYZFizt VWxjZXJhdGVkLCByZXByZX OmptRsgGd5MPvwYHYiJWv3 WLYia9oeKJBkJHYuHC9uZ1 JvdGljIGFyZWEsIHJlcHJl v8CqtLW5aLSdWYKfndFERL woB7QeS2GfDRRvKHYzhlPb n0FlkjBvGF83HDEgZX2hM6 JvdGljIGFyZWEsIHJlcHJl x8IcyGG2iKDfTNWfmbsvVV JccGFyZFxwbGFpblxmMFxm fcK3PMIiTEnqUMQmTPOaKd BcbGFuZzEwMzNcaGljaFxm VKspAcUtAPOwPDuaS4zkEk EcNfSqRQGXj51jgJYTvWYv cmEsIFBhdGggQSBTdHVkZW 55XXYazu1= Embedded Images (test code = 5050416351) [facility] GLUCOSE (AUTOMATED)2020-03-26 14:22:00 Test Item Value Reference Range Interpretation Comments POCT GLU (test code = 5246096177) 125 mg/dL 70-110 H Lab Interpretation (test code = Abnormal 01793-3) [facility] GLUCOSE (AUTOMATED)2020-03-26 10:07:00 Test Item Value Reference Range Interpretation Comments POCT GLU (test code = 7753091614) 160 mg/dL 70-110 H Lab Interpretation (test code = Abnormal 45818-1) [facility] GLUCOSE (AUTOMATED)2020-03-26 06:33:00 Test Item Value Reference Range Interpretation Comments POCT GLU (test code = 5812179416) 188 mg/dL 70-110 H Lab Interpretation (test code = Abnormal 94533-4) [facility] GLUCOSE (AUTOMATED)2020-03-26 06:13:00 Test Item Value Reference Range Interpretation Comments POCT GLU (test code = 0441170806) 191 mg/dL 70-110 H Lab Interpretation (test code = Abnormal 61380-7) [facility] GLUCOSE (AUTOMATED)2020-03-26 02:48:00 Test Item Value Reference Range Interpretation Comments POCT GLU (test code = 6610899682) 229 mg/dL 70-110 H Lab Interpretation (test code = Abnormal 52358-5) [facility] 23:58:00 Test Item Value Reference Range Interpretation Comments POCT GLU (test code = 5286210203) 184 mg/dL 70-110 H Lab Interpretation (test code = Abnormal 18118-3) [facility] 21:25:00 Test Item Value Reference Range Interpretation Comments POCT GLU (test code = 6216196985) 217 mg/dL 70-110 H Lab Interpretation (test code = Abnormal 95367-9) [facility] 20:04:00 Test Item Value Reference Range Interpretation Comments POCT GLU (test code = 9358428365) 223 mg/dL 70-110 H Lab Interpretation (test code = Abnormal 53878-3) [facility] GLUCOSE (AUTOMATED)2020-03-25 17:28:00 Test Item Value Reference Range Interpretation Comments POCT GLU (test code = 5971912548) 222 mg/dL 70-110 H Lab Interpretation (test code = Abnormal 28821-9) [facility] GLUCOSE (AUTOMATED)2020-03-25 13:19:00 Test Item Value Reference Range Interpretation Comments POCT GLU (test code = 7749301146) 115 mg/dL 70-110 H Lab Interpretation (test code = Abnormal 18931-7) [facility] GLUCOSE (AUTOMATED)2020-03-25 10:10:00 Test Item Value Reference Range Interpretation Comments POCT GLU (test code = 5389187904) 181 mg/dL 70-110 H Lab Interpretation (test code = Abnormal 65405-4) [facility] GLUCOSE (AUTOMATED)2020-03-25 06:41:00 Test Item Value Reference Range Interpretation Comments POCT GLU (test code = 7403324518) 166 mg/dL 70-110 H Lab Interpretation (test code = Abnormal 73043-0) [facility] 02:04:00 Test Item Value Reference Range Interpretation Comments POCT GLU (test code = 4086440249) 204 mg/dL 70-110 H Lab Interpretation (test code = Abnormal 54280-3) [facility] GLUCOSE (AUTOMATED)2020-03-24 22:45:00 Test Item Value Reference Range Interpretation Comments POCT GLU (test code = 5354043927) 192 mg/dL 70-110 H Lab Interpretation (test code = Abnormal 80745-5) [facility] CULTURE [id number] 20:02:00 Test Item Value Reference Range Interpretation Comments Blood Culture-Aerobic No organisms No growth Previo us (test code = 01476-0) isolated prelim inary verified result was Culture In Progress on 03/19/2020 at 1801 CDTPreviou s preliminary verified result was No growth a t 24 hours on 03/20/2020 at 1501 CDTPreviou s preliminary verified result was No growth a t 48 hours on 03/21/2020 at 1501 CDTPreviou s preliminary verified result was No growth a t 72 hours on 03/22/2020 at 14 01 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 SKINS 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 Blood No organisms No growth Previous Culture-Anaerobic isolated preliminar y (test code = 53313-9) verifi ed result was Culture In Progress on 03/19/2020 at 1801 CDTPreviou s preliminary verified result was No growth a t 24 hours on 03/20/2020 at 1501 CDTPreviou s preliminary verified result was No growth a t 48 hours on 03/21/2020 at 1501 CDTPreviou s preliminary verified result was No growth a t 72 hours on 03/22/2020 at 14 01 HIDES 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 SKINS COLORER Lab Interpretation Normal (test code = 31090-3) [facility] CULTURE [id number] 20:02:00 Test Item Value Reference Range Interpretation Comments Blood Culture-Aerobic No organisms No growth Previo us (test code = 86752-5) isolated prelim inary verified result was Culture In Progress on 03/19/2020 at 1801 CDTPreviou s preliminary verified result was No growth a t 24 hours on 03/20/2020 at 1501 CDTPreviou s preliminary verified result was No growth a t 48 hours on 03/21/2020 at 1501 CDTPreviou s preliminary verified result was No growth a t 72 hours on 03/22/2020 at 14 01 HIDES AND SKINS COLORER Blood No organisms No growth Previous Culture-Anaerobic isolated preliminar y (test code = 39790-2) verifi ed result was Culture In Progress on 03/19/2020 at 1801 CDTPreviou s preliminary verified result was No growth a t 24 hours on 03/20/2020 at 1501 CDTPreviou s preliminary verified result was No growth a t 48 hours on 03/21/2020 at 1501 CDTPreviou s preliminary verified result was No growth a t 72 hours on 03/22/2020 at 14 01 HIDES AND SKINS COLORER Lab Interpretation Normal (test code = 30481-0) [facility] GLUCOSE (AUTOMATED)2020-03-24 18:07:00 Test Item Value Reference Range Interpretation Comments POCT GLU (test code = 2857502511) 196 mg/dL 70-110 H Lab Interpretation (test code = Abnormal 86043-7) [facility] GLUCOSE (AUTOMATED)2020-03-24 13:28:00 Test Item Value Reference Range Interpretation Comments POCT GLU (test code = 4347583602) 180 mg/dL 70-110 H Lab Interpretation (test code = Abnormal 85439-2) [facility] WITH [id number] 10:56:00 Test Item Value Reference Range Interpretation [...] RDW-SD (test code = 45.8 fL 38.5-51.6 25888-6) RDW-CV (test code = 15.5 % 12.1-15.4 H 788-0) PLT (test code = See_Comment H [Automated 777-3) message] The sy stem which generated this result transmitted reference range : 150 - 328 10*3/ ?L. The reference r batsheva was not used to interpret this result as normal/abnormal . MPV (test code = 9.3 fL 9.8-13 L 75609-8) NRBC/100 WBC (test See_Comment [Automat ed code = 2398607630) message] The system which generated this result transmitted reference range : 0.0 - 10.0 /100 WBCs. The refer ence range was not u sed to interpret th is result as normal/abnormal . NRBC x10^3 (test code <0.01 See_Comment [Auto mated = 0984303946) message] The s ystem which generated this result transmitted reference range : 10*3/?L. The reference range was not used to interpret this result as normal/abnormal . GRAN MAT (NEUT) % 72.9 % (test code = 770-8) IMM GRAN % (test code 3.40 % = 2269582623) LYMPH % (test code = 17.3 % 736-9) MONO % (test code = 4.2 % 5905-5) EOS % (test code = 1.8 % 713-8) BASO % (test code = 0.4 % 706-2) GRAN MAT x10^3(ANC) 7.89 10*3/uL 1.99-6.95 H (test code = 6069405526) IMM GRAN x10^3 (test 0.37 10*3/uL 0-0.06 H code = 3505772625) LYMPH x10^3 (test code 1.87 10*3/uL 1.09-3.23 = 731-0) MONO x10^3 (test code 0.46 10*3/uL 0.36-1.02 = 742-7) EOS x10^3 (test code = 0.20 10*3/uL 0.06-0.53 711-2) BASO x10^3 (test code 0.04 10*3/uL 0.01-0.09 = 704-7) Lab Interpretation Abnormal (test code = 74354-3) [facility] GLUCOSE (AUTOMATED)2020-03-24 10:36:00 Test Item Value Reference Range Interpretation Comments POCT GLU (test code = 5454942646) 133 mg/dL 70-110 H Lab Interpretation (test code = Abnormal 37786-5) [facility] GLUCOSE (AUTOMATED)2020-03-24 06:00:00 Test Item Value Reference Range Interpretation Comments POCT GLU (test code = 8066618360) 137 mg/dL 70-110 H Lab Interpretation (test code = Abnormal 79770-0) [facility] GLUCOSE (AUTOMATED)2020-03-24 01:35:00 Test Item Value Reference Range Interpretation Comments POCT GLU (test code = 8635981047) 192 mg/dL 70-110 H Lab Interpretation (test code = Abnormal 80385-0) [facility] GLUCOSE (AUTOMATED)2020-03-23 23:35:00 Test Item Value Reference Range Interpretation Comments POCT GLU (test code = 9521713552) 176 mg/dL 70-110 H Lab Interpretation (test code = Abnormal 65018-5) [facility] GLUCOSE (AUTOMATED)2020-03-23 21:56:00 Test Item Value Reference Range Interpretation Comments POCT GLU (test code = 6353651459) 179 mg/dL 70-110 H Lab Interpretation (test code = Abnormal 63249-9) [facility] GLUCOSE (AUTOMATED)2020-03-23 18:05:00 Test Item Value Reference Range Interpretation Comments POCT GLU (test code = 5691575227) 160 mg/dL 70-110 H Lab Interpretation (test code = Abnormal 43255-1) [facility] WITH [id number] 15:10:00 Test Item Value Reference Range Interpretation [...] RDW-SD (test code = 46.0 fL 38.5-51.6 68803-7) RDW-CV (test code = 15.1 % 12.1-15.4 788-0) PLT (test code = See_Comment H [Automated 777-3) message] The sy stem which generated this result transmitted reference range : 150 - 328 10*3/ ?L. The reference r batsheva was not used to interpret this result as normal/abnormal . MPV (test code = 9.5 fL 9.8-13 L 06022-7) NRBC/100 WBC (test See_Comment [Automat ed code = 4856053787) message] The system which generated this result transmitted reference range : 0.0 - 10.0 /100 WBCs. The refer ence range was not u sed to interpret th is result as normal/abnormal . NRBC x10^3 (test code <0.01 See_Comment [Auto mated = 8678832843) message] The s ystem which generated this result transmitted reference range : 10*3/?L. The reference range was not used to interpret this result as normal/abnormal . GRAN MAT (NEUT) % 75.4 % (test code = 770-8) IMM GRAN % (test code 4.30 % = 7492199223) LYMPH % (test code = 13.8 % 736-9) MONO % (test code = 4.0 % 5905-5) EOS % (test code = 1.9 % 713-8) BASO % (test code = 0.6 % 706-2) GRAN MAT x10^3(ANC) 8.16 10*3/uL 1.99-6.95 H (test code = 2200381589) IMM GRAN x10^3 (test 0.47 10*3/uL 0-0.06 H code = 7548476860) LYMPH x10^3 (test code 1.49 10*3/uL 1.09-3.23 = 731-0) MONO x10^3 (test code 0.43 10*3/uL 0.36-1.02 = 742-7) EOS x10^3 (test code = 0.20 10*3/uL 0.06-0.53 711-2) BASO x10^3 (test code 0.06 10*3/uL 0.01-0.09 = 704-7) Lab Interpretation Abnormal (test code = 53685-9) [facility] 13:58:00 Test Item Value Reference Range Interpretation Comments POCT GLU (test code = 2269573359) 125 mg/dL 70-110 H Lab Interpretation (test code = Abnormal 87830-7) [facility] METABOLIC PANEL (NA, K, CL, CO2, GLUCOSE, BUN, CREATININE, CA)2020-03-23 12:18:00 Test Item Value Reference Range Interpretation Comments NA (test code = 136 mmol/L 135-145 5592350214) K (test code = 4.0 mmol/L 3.5-5 5772858619) CL (test code = 102 mmol/L 98-108 6331197225) CO2 TOTAL (test code = 29 mmol/L 23-31 4585933447) AGAP (test code = 2-16 7679258964) BUN (test code = 7 mg/dL 7-23 1214740920) GLUCOSE (test code = 134 mg/dL 70-110 H 8597052174) CREATININE (test code = 0.64 mg/dL 0.6-1.25 6462834611) CALCIUM (test code = 8.0 mg/dL 8.6-10.6 L 8334652068) eGFR Calculation mL/min/1.73m2 (Non-) (test code = 1937378849) eGFR Calculation mL/min/1.73m2 () (test code = 9431670723) DIANE (test code = DIANE) Association of [...] tests). Lab Interpretation Abnormal (test code = 97826-2) [facility] 12:18:00 Test Item Value Reference Range Interpretation Comments MAGNESIUM (test code = 0644366913) 1.6 mg/dL 1.7-2.4 L Lab Interpretation (test code = Abnormal 70015-0) [facility] 12:18:00 Test Item Value Reference Range Interpretation Comments PHOSPHORUS (test code = 5414394539) 4.1 mg/dL 2.5-5 Lab Interpretation (test code = Normal 81907-6) [facility] GLUCOSE (AUTOMATED)2020-03-23 09:26:00 Test Item Value Reference Range Interpretation Comments POCT GLU (test code = 137 mg/dL 70-110 H RNNoti fied Provider [id number]) Lab Interpretation (test Abnormal code = 71523-0) [facility] GLUCOSE (AUTOMATED)2020-03-23 05:22:00 Test Item Value Reference Range Interpretation Comments POCT GLU (test code = 136 mg/dL 70-110 H RNNoti fied Provider [id number]) Lab Interpretation (test Abnormal code = 53736-7) [facility] GLUCOSE (AUTOMATED)2020-03-23 01:18:00 Test Item Value Reference Range Interpretation Comments POCT GLU (test code = 155 mg/dL 70-110 H RNNoti fied Provider [id number]) Lab Interpretation (test Abnormal code = 33454-3) [facility] GLUCOSE (AUTOMATED)2020-03-22 23:04:00 Test Item Value Reference Range Interpretation Comments POCT GLU (test code = 2554132778) 144 mg/dL 70-110 H Lab Interpretation (test code = Abnormal 12922-6) [facility] GLUCOSE (AUTOMATED)2020-03-22 18:59:00 Test Item Value Reference Range Interpretation Comments POCT GLU (test code = 7736138186) 155 mg/dL 70-110 H Lab Interpretation (test code = Abnormal 44473-0) [facility] GLUCOSE (AUTOMATED)2020-03-22 15:36:00 Test Item Value Reference Range Interpretation Comments POCT GLU (test code = 1615809968) 121 mg/dL 70-110 H Lab Interpretation (test code = Abnormal 34916-8) [facility] GLUCOSE (AUTOMATED)2020-03-22 13:31:00 Test Item Value Reference Range Interpretation Comments POCT GLU (test code = 2740695820) 112 mg/dL 70-110 H Lab Interpretation (test code = Abnormal 20356-9) [facility] METABOLIC PANEL (NA, K, CL, CO2, GLUCOSE, BUN, CREATININE, CA)2020-03-22 11:41:00 Test Item Value Reference Range Interpretation Comments NA (test code = 137 mmol/L 135-145 7406535809) K (test code = 4.2 mmol/L 3.5-5 4356746558) CL (test code = 105 mmol/L 98-108 6071117424) CO2 TOTAL (test code = 26 mmol/L 23-31 2401870899) AGAP (test code = 2-16 1194038496) BUN (test code = 10 mg/dL 7-23 7172213743) GLUCOSE (test code = 123 mg/dL 70-110 H 3109335455) CREATININE (test code = 0.64 mg/dL 0.6-1.25 7935782821) CALCIUM (test code = 7.7 mg/dL 8.6-10.6 L 0788485769) eGFR Calculation mL/min/1.73m2 (Non-) (test code = 9602382075) eGFR Calculation mL/min/1.73m2 () (test code = 3849658164) DIANE (test code = DIANE) Association of [...] tests). Lab Interpretation Abnormal (test code = 92663-2) [facility] 11[facility]:00 Test Item Value Reference Range Interpretation Comments MAGNESIUM (test code = 5375483370) 1.6 mg/dL 1.7-2.4 L Lab Interpretation (test code = Abnormal 63482-5) [facility] 11:41:00 Test Item Value Reference Range Interpretation Comments PHOSPHORUS (test code = 0070547565) 4.4 mg/dL 2.5-5 Lab Interpretation (test code = Normal 56272-5) [facility] WITH [id number] 10:35:00 Test Item Value Reference Range Interpretation [...] RDW-SD (test code = 47.8 fL 38.5-51.6 03237-7) RDW-CV (test code = 15.6 % 12.1-15.4 H 788-0) PLT (test code = See_Comment H [Automated 777-3) message] The sy stem which generated this result transmitted reference range : 150 - 328 10*3/ ?L. The reference r batsheva was not used to interpret this result as normal/abnormal . MPV (test code = 9.9 fL 9.8-13 16569-0) NRBC/100 WBC (test See_Comment [Automat ed code = 1081141824) message] The system which generated this result transmitted reference range : 0.0 - 10.0 /100 WBCs. The refer ence range was not u sed to interpret th is result as normal/abnormal . NRBC x10^3 (test code <0.01 See_Comment [Auto mated = 3293237178) message] The s ystem which generated this result transmitted reference range : 10*3/?L. The reference range was not used to interpret this result as normal/abnormal . GRAN MAT (NEUT) % 65.8 % (test code = 770-8) IMM GRAN % (test code 7.30 % = 1531601087) LYMPH % (test code = 19.1 % 736-9) MONO % (test code = 5.1 % 5905-5) EOS % (test code = 2.0 % 713-8) BASO % (test code = 0.7 % 706-2) GRAN MAT x10^3(ANC) 5.78 10*3/uL 1.99-6.95 (test code = 1786990760) IMM GRAN x10^3 (test 0.64 10*3/uL 0-0.06 H code = 7560752580) LYMPH x10^3 (test code 1.68 10*3/uL 1.09-3.23 = 731-0) MONO x10^3 (test code 0.45 10*3/uL 0.36-1.02 = 742-7) EOS x10^3 (test code = 0.18 10*3/uL 0.06-0.53 711-2) BASO x10^3 (test code 0.06 10*3/uL 0.01-0.09 = 704-7) Lab Interpretation Abnormal (test code = 34355-9) [facility] GLUCOSE (AUTOMATED)2020-03-22 09:23:00 Test Item Value Reference Range Interpretation Comments POCT GLU (test code = 121 mg/dL 70-110 H RNNoti fied Provider [id number]) Lab Interpretation (test Abnormal code = 77957-8) [facility] GLUCOSE (AUTOMATED)2020-03-22 04:22:00 Test Item Value Reference Range Interpretation Comments POCT GLU (test code = 158 mg/dL 70-110 H RNNoti fied Provider [id number]) Lab Interpretation (test Abnormal code = 22913-1) [facility] GLUCOSE (AUTOMATED)2020-03-22 00:25:00 Test Item Value Reference Range Interpretation Comments POCT GLU (test code = 138 mg/dL 70-110 H RNNoti fied Provider [id number]) Lab Interpretation (test Abnormal code = 71800-9) [facility] GLUCOSE (AUTOMATED)2020-03-21 23:04:00 Test Item Value Reference Range Interpretation Comments POCT GLU (test code = 2093749594) 141 mg/dL 70-110 H Lab Interpretation (test code = Abnormal 98213-4) [facility] GLUCOSE (AUTOMATED)2020-03-21 18:43:00 Test Item Value Reference Range Interpretation Comments POCT GLU (test code = 2776657498) 94 mg/dL 70-110 Lab Interpretation (test code = Normal 57927-0) [facility] GLUCOSE (AUTOMATED)2020-03-21 13:41:00 Test Item Value Reference Range Interpretation Comments POCT GLU (test code = 6138178842) 108 mg/dL 70-110 Lab Interpretation (test code = Normal 13816-0) [facility] - Draw immediately prior to the 4TH dose, but, no more than 60 minutes before the NEXT dose. 2020-03-21 11:20:00 Test Item Value Reference Range Interpretation Comments VANCO TROUGH (test code 10.0 ug/mL -20 = 3167265724) DIANE (test code = DIANE) Toxic Range: ?>20 ug/mL 15-20 ug/mL is recommended for severe infection or when Vancomycin MILLICENT is greater than or equal to 2. Lab Interpretation (test Normal code = 74141-8) [facility] WITH [id number] 09:27:00 Test Item Value Reference Range Interpretation Comments WBC (test code = See_Comment H [Automated 0690-2) message] The sy stem which generated this [...] RDW-SD (test code = 46.7 fL 38.5-51.6 56447-2) RDW-CV (test code = 15.3 % 12.1-15.4 788-0) PLT (test code = See_Comment H [Automated 777-3) message] The sy stem which generated this result transmitted reference range : 150 - 328 10*3/ ?L. The reference r batsheva was not used to interpret this result as normal/abnormal . MPV (test code = 9.3 fL 9.8-13 L 12416-7) NRBC/100 WBC (test See_Comment [Automat ed code = 3320975105) message] The system which generated this result transmitted reference range : 0.0 - 10.0 /100 WBCs. The refer ence range was not u sed to interpret th is result as normal/abnormal . NRBC x10^3 (test code <0.01 See_Comment [Auto mated = 7377616697) message] The s ystem which generated this result transmitted reference range : 10*3/?L. The reference range was not used to interpret this result as normal/abnormal . GRAN MAT (NEUT) % 67.4 % (test code = 770-8) IMM GRAN % (test code 7.60 % = 5013700152) LYMPH % (test code = 16.5 % 736-9) MONO % (test code = 6.2 % 5905-5) EOS % (test code = 1.8 % 713-8) BASO % (test code = 0.5 % 706-2) GRAN MAT x10^3(ANC) 8.38 10*3/uL 1.99-6.95 H (test code = 6053528056) IMM GRAN x10^3 (test 0.95 10*3/uL 0-0.06 H code = 5269455706) LYMPH x10^3 (test code 2.06 10*3/uL 1.09-3.23 = 731-0) MONO x10^3 (test code 0.77 10*3/uL 0.36-1.02 = 742-7) EOS x10^3 (test code = 0.23 10*3/uL 0.06-0.53 711-2) BASO x10^3 (test code 0.06 10*3/uL 0.01-0.09 = 704-7) Lab Interpretation Abnormal (test code = 32964-6) [facility] METABOLIC PANEL (NA, K, CL, CO2, GLUCOSE, BUN, CREATININE, CA)2020-03-21 08:59:00 Test Item Value Reference Range Interpretation Comments NA (test code = 135 mmol/L 135-145 8401139681) K (test code = 4.0 mmol/L 3.5-5 7772014707) CL (test code = 109 mmol/L 98-108 H 4939818555) CO2 TOTAL (test code = 22 mmol/L 23-31 L 5435207869) AGAP (test code = 2-16 2755799794) BUN (test code = 13 mg/dL 7-23 0299510264) GLUCOSE (test code = 125 mg/dL 70-110 H 8220101099) CREATININE (test code = 0.63 mg/dL 0.6-1.25 0193387075) CALCIUM (test code = 7.7 mg/dL 8.6-10.6 L 9804851464) eGFR Calculation mL/min/1.73m2 (Non-) (test code = 0776499974) eGFR Calculation mL/min/1.73m2 () (test code = 1738941695) DIANE (test code = DIANE) Association of [...] tests). Lab Interpretation Abnormal (test code = 44378-5) [facility]2020-[facility] 08:59:00 Test Item Value Reference Range Interpretation Comments MAGNESIUM (test code = 1891122655) 1.7 mg/dL 1.7-2.4 Lab Interpretation (test code = Normal 48107-8) [facility]2020-[facility]-31 08:59:00 Test Item Value Reference Range Interpretation Comments PHOSPHORUS (test code = 3359635518) 3.5 mg/dL 2.5-5 Lab Interpretation (test code = Normal 49651-6) [facility] GLUCOSE (AUTOMATED)2020-03-21 08:32:00 Test Item Value Reference Range Interpretation Comments POCT GLU (test code = 123 mg/dL 70-110 H RNNoti fied Provider 0434884765) Lab Interpretation (test Abnormal code = 35539-8) [facility] GLUCOSE (AUTOMATED)2020-03-21 05:20:00 Test Item Value Reference Range Interpretation Comments POCT GLU (test code = 3257376754) 136 mg/dL 70-110 H Lab Interpretation (test code = Abnormal 77609-3) [facility] GLUCOSE (AUTOMATED)2020-03-21 00:50:00 Test Item Value Reference Range Interpretation Comments POCT GLU (test code = 8894360025) 163 mg/dL 70-110 H Lab Interpretation (test code = Abnormal 42372-4) [facility] [id number] 23:36:00 Test Item Value Reference Range Interpretation [...] RDW-SD (test code = 46.0 fL 38.5-51.6 88188-9) RDW-CV (test code = 15.2 % 12.1-15.4 788-0) PLT (test code = See_Comment H [Automated 777-3) message] The system which generated this result transmit ludmila reference range : 150 - 328 10*3/ ?L. The reference range was not u sed to interpret th is result as normal/abnormal . MPV (test code = 9.4 fL 9.8-13 L 79814-9) NRBC/100 WBC (test See_Comment [Automat ed code = 5425624038) message] The system which generated this result transmit ludmila reference range : 0.0 - 10.0 /100 WBCs. The reference range was not used to interpret this result as normal/abnormal . NRBC x10^3 (test code <0.01 See_Comment [Auto mated = 3112681505) message] The system which generated this result transmit ludmila reference range : 10*3/?L. The reference range was not used to interpret this result as normal/abnormal . GRAN MAT (NEUT) % 74.9 % (test code = 770-8) IMM GRAN % (test code 5.60 % = 2607333073) LYMPH % (test code = 13.1 % 736-9) MONO % (test code = 5.3 % 5905-5) EOS % (test code = 0.8 % 713-8) BASO % (test code = 0.3 % 706-2) GRAN MAT x10^3(ANC) 10.84 10*3/uL 1.99-6.95 H (test code = 3155257517) IMM GRAN x10^3 (test 0.81 10*3/uL 0-0.06 H code = 2120710829) LYMPH x10^3 (test code 1.89 10*3/uL 1.09-3.23 = 731-0) MONO x10^3 (test code 0.76 10*3/uL 0.36-1.02 = 742-7) EOS x10^3 (test code = 0.11 10*3/uL 0.06-0.53 711-2) BASO x10^3 (test code 0.05 10*3/uL 0.01-0.09 = 704-7) Lab Interpretation Abnormal (test code = 87806-0) [facility] GLUCOSE (AUTOMATED)2020-03-20 21:09:00 Test Item Value Reference Range Interpretation Comments POCT GLU (test code = 3564745930) 191 mg/dL 70-110 H Lab Interpretation (test code = Abnormal 84846-1) [facility] GLUCOSE (AUTOMATED)2020-03-20 16:18:00 Test Item Value Reference Range Interpretation Comments POCT GLU (test code = 4899753333) 176 mg/dL 70-110 H Lab Interpretation (test code = Abnormal 45747-2) [facility] - [facility] # [id number] 15:39:00 Test Item Value Reference Range Interpretation Comments Blood Culture-Aerobic Culture positive. No growth AA P revious (test code = 61484-1) See Blood prelim inary Culture Workup verified resu lt for additional was Culture I n information. Progress on 03/16/2020 at 0501 CDTPreviou s preliminary verified result was No growth a t 24 hours on 03/17/2020 at 0201 CDT Blood Culture positive. No growth AA Previous Culture-Anaerobic See Blood preliminar y (test code = 51029-1) Culture Workup veri fied result for additional was Culture I n information. Progress on 03/16/2020 at 0501 CDTPreviou s preliminary verified result was No growth a t 24 hours on 03/17/2020 at 1451 CDT Lab Interpretation Abnormal (test code = 38799-0) [facility] CULTURE [id number] 15:39:00 Test Item Value Reference Range Interpretation Comments Blood Culture Anaerococcus [place] Workup (test species morphologically code = 600-7) consistent wit h organism aboveF or susceptibility results, refer to culture # - [id number] Gram stain Isolated from This is an ronald ended (test code = anaerobic bottle report. The se results 664-3) Gram positive cocci have bee n appended to a previously preliminary mauri ified report. [facility] Culture - Peripheral # [id number] 13:28:00 Test Item Value Reference Range Interpretation Comments Blood Culture-Aerobic Culture positive. No growth AA P revious (test code = 35458-2) See Blood prelim inary Culture Workup verified resu lt for additional was Culture I n information. Progress on 03/16/2020 at 1459 CDT Blood Culture positive. No growth AA Previous Culture-Anaerobic See Blood preliminar y (test code = 22193-2) Culture Workup veri fied result for additional was Culture I n information. Progress on 03/16/2020 at 1458 CDT Lab Interpretation Abnormal (test code = 57271-1) [facility] GLUCOSE (AUTOMATED)2020-03-20 12:22:00 Test Item Value Reference Range Interpretation Comments POCT GLU (test code = 8352853015) 189 mg/dL 70-110 H Lab Interpretation (test code = Abnormal 30229-0) [facility] WITH [id number] 09:52:00 Test Item Value Reference Range Interpretation Comments WBC (test code = See_Comment H [Automated 0890-2) message] The system which generated this result transmit ludmila reference range : 4.20 - 10.70 10*3/?L. The reference range was not used to interpret this result as normal/abnormal . RBC (test code = See_Comment L [Automated 829-8) message] The system which generated this result [...] RDW-SD (test code = 46.2 fL 38.5-51.6 94156-4) RDW-CV (test code = 15.2 % 12.1-15.4 788-0) PLT (test code = See_Comment H [Automated 777-3) message] The system which generated this result transmit ludmila reference range : 150 - 328 10*3/ ?L. The reference range was not u sed to interpret th is result as normal/abnormal . MPV (test code = 9.6 fL 9.8-13 L 01815-0) NRBC/100 WBC (test See_Comment [Automat ed code = 7418627316) message] The system which generated this result transmit ludmila reference range : 0.0 - 10.0 /100 WBCs. The reference range was not used to interpret this result as normal/abnormal . NRBC x10^3 (test code <0.01 See_Comment [Auto mated = 6140039887) message] The system which generated this result transmit ludmila reference range : 10*3/?L. The reference range was not used to interpret this result as normal/abnormal . GRAN MAT (NEUT) % 81.4 % (test code = 770-8) IMM GRAN % (test code 5.40 % = 0156121942) LYMPH % (test code = 7.7 % 736-9) MONO % (test code = 5.2 % 5905-5) EOS % (test code = 0.1 % 713-8) BASO % (test code = 0.2 % 706-2) GRAN MAT x10^3(ANC) 16.81 10*3/uL 1.99-6.95 H (test code = 9605173500) IMM GRAN x10^3 (test 1.12 10*3/uL 0-0.06 H code = 2528866176) LYMPH x10^3 (test code 1.58 10*3/uL 1.09-3.23 = 731-0) MONO x10^3 (test code 1.07 10*3/uL 0.36-1.02 H = 742-7) EOS x10^3 (test code = <0.03 0.06-0.53 L 711-2) BASO x10^3 (test code 0.05 10*3/uL 0.01-0.09 = 704-7) Lab Interpretation Abnormal (test code = 72978-8) [facility] METABOLIC PANEL (NA, K, CL, CO2, GLUCOSE, BUN, CREATININE, CA)2020-03-20 09:40:00 Test Item Value Reference Range Interpretation Comments NA (test code = 135 mmol/L 135-145 5300777961) K (test code = 4.4 mmol/L 3.5-5 4608340621) CL (test code = 112 mmol/L 98-108 H 0563620510) CO2 TOTAL (test code = 19 mmol/L 23-31 L 6459709298) AGAP (test code = 2-16 0449135191) BUN (test code = 19 mg/dL 7-23 0970238135) GLUCOSE (test code = 199 mg/dL 70-110 H 0539898098) CREATININE (test code = 0.68 mg/dL 0.6-1.25 7074780059) CALCIUM (test code = 7.6 mg/dL 8.6-10.6 L 1779823398) eGFR Calculation mL/min/1.73m2 (Non-) (test code = 5563635990) eGFR Calculation mL/min/1.73m2 () (test code = 2693084694) DIANE (test code = DIANE) Association of [...] tests). Lab Interpretation Abnormal (test code = 93972-3) [facility]2020-[facility]30 09:40:00 Test Item Value Reference Range Interpretation Comments MAGNESIUM (test code = 2763731410) 1.9 mg/dL 1.7-2.4 Lab Interpretation (test code = Normal 90577-3) [facility]2020-[facility]30 09:40:00 Test Item Value Reference Range Interpretation Comments PHOSPHORUS (test code = 3823614428) 3.1 mg/dL 2.5-5 Lab Interpretation (test code = Normal 22869-8) [facility] GLUCOSE (AUTOMATED)2020-03-20 08:41:00 Test Item Value Reference Range Interpretation Comments POCT GLU (test code = 206 mg/dL 70-110 H Notifi ed Provider 5308371368) Lab Interpretation (test Abnormal code = 32077-5) [facility] GLUCOSE (AUTOMATED)2020-03-20 05:14:00 Test Item Value Reference Range Interpretation Comments POCT GLU (test code = 221 mg/dL 70-110 H Notifi ed Provider 2889420285) Lab Interpretation (test Abnormal code = 93939-8) [facility] GLUCOSE (AUTOMATED)2020-03-20 00:40:00 Test Item Value Reference Range Interpretation Comments POCT GLU (test code = 4295407176) 244 mg/dL 70-110 H Lab Interpretation (test code = Abnormal 12986-5) [facility] GLUCOSE (AUTOMATED)2020-03-19 21:54:00 Test Item Value Reference Range Interpretation Comments POCT GLU (test code = 4610081467) 293 mg/dL 70-110 H Lab Interpretation (test code = Abnormal 64227-7) [facility] GLUCOSE (AUTOMATED)2020-03-19 16:22:00 Test Item Value Reference Range Interpretation Comments POCT GLU (test code = 5865767176) 185 mg/dL 70-110 H Lab Interpretation (test code = Abnormal 65738-3) [facility] GLUCOSE (AUTOMATED)2020-03-19 12:21:00 Test Item Value Reference Range Interpretation Comments POCT GLU (test code = 8458071031) 217 mg/dL 70-110 H Lab Interpretation (test code = Abnormal 39471-0) [facility] METABOLIC PANEL (NA, K, CL, CO2, GLUCOSE, BUN, CREATININE, CA)2020-03-19 10:23:00 Test Item Value Reference Range Interpretation Comments NA (test code = 135 mmol/L 135-145 7854068512) K (test code = 4.3 mmol/L 3.5-5 0024964418) CL (test code = 110 mmol/L 98-108 H 2408630820) CO2 TOTAL (test code = 17 mmol/L 23-31 L 0101464290) AGAP (test code = 2-16 4935302724) BUN (test code = 18 mg/dL 7-23 5231634230) GLUCOSE (test code = 216 mg/dL 70-110 H 6218745943) CREATININE (test code = 0.73 mg/dL 0.6-1.25 2060862749) CALCIUM (test code = 7.6 mg/dL 8.6-10.6 L 0740757662) eGFR Calculation mL/min/1.73m2 (Non-) (test code = 5206883583) eGFR Calculation mL/min/1.73m2 () (test code = 9325971936) DIANE (test code = DIANE) Association of [...] tests). Lab Interpretation Abnormal (test code = 72861-7) [facility]2020-[facility]29 10:23:00 Test Item Value Reference Range Interpretation Comments MAGNESIUM (test code = 0078745547) 1.9 mg/dL 1.7-2.4 Lab Interpretation (test code = Normal 17044-0) [facility]2020-[facility]-29 10:23:00 Test Item Value Reference Range Interpretation Comments PHOSPHORUS (test code = 5690854491) 3.4 mg/dL 2.5-5 Lab Interpretation (test code = Normal 63360-3) [facility] [id number] 10:09:00 Test Item Value Reference Range Interpretation [...] RDW-SD (test code = 45.6 fL 38.5-51.6 75704-9) RDW-CV (test code = 14.7 % 12.1-15.4 788-0) PLT (test code = See_Comment H [Automated 777-3) message] The system which generated this result transmit ludmila reference range : 150 - 328 10*3/ ?L. The reference range was not u sed to interpret th is result as normal/abnormal . MPV (test code = 9.6 fL 9.8-13 L 95740-1) NRBC/100 WBC (test See_Comment [Automat ed code = 4584779123) message] The system which generated this result transmit ludmila reference range : 0.0 - 10.0 /100 WBCs. The reference range was not used to interpret this result as normal/abnormal . NRBC x10^3 (test code <0.01 See_Comment [Auto mated = 1517381936) message] The system which generated this result transmit ludmila reference range : 10*3/?L. The reference range was not used to interpret this result as normal/abnormal . GRAN MAT (NEUT) % 81.2 % (test code = 770-8) IMM GRAN % (test code 8.20 % = 1424656248) LYMPH % (test code = 7.7 % 736-9) MONO % (test code = 2.7 % 5905-5) EOS % (test code = 0.0 % 713-8) BASO % (test code = 0.2 % 706-2) GRAN MAT x10^3(ANC) 10.61 10*3/uL 1.99-6.95 H (test code = 4216696829) IMM GRAN x10^3 (test 1.07 10*3/uL 0-0.06 H code = 9046368073) LYMPH x10^3 (test code 1.00 10*3/uL 1.09-3.23 L = 731-0) MONO x10^3 (test code 0.35 10*3/uL 0.36-1.02 L = 742-7) EOS x10^3 (test code = <0.03 0.06-0.53 L 711-2) BASO x10^3 (test code <0.03 0.01-0.09 = 704-7) CIRILO CELLS (test code 2+ See_Comment A [Auto mated = 7765-4) message] The system which generated this result transmit ludmila reference range : (none). The reference range was not used to interpret this result as normal/abnormal . BANDS (test code = Increased A 0515758531) Lab Interpretation Abnormal (test code = 90665-2) [facility] GLUCOSE (AUTOMATED)2020-03-19 09:04:00 Test Item Value Reference Range Interpretation Comments POCT GLU (test code = 241 mg/dL 70-110 H Notifi ed Provider [id number]) Lab Interpretation (test Abnormal code = 69341-0) [facility] GLUCOSE (AUTOMATED)2020-03-19 04:36:00 Test Item Value Reference Range Interpretation Comments POCT GLU (test code = 228 mg/dL 70-110 H Notifi ed Provider 1776125758) Lab Interpretation (test Abnormal code = 57621-0) [facility] GLUCOSE (AUTOMATED)2020-03-19 02:11:00 Test Item Value Reference Range Interpretation Comments POCT GLU (test code = 3703888925) 231 mg/dL 70-110 H Lab Interpretation (test code = Abnormal 52517-7) [facility] GLUCOSE (AUTOMATED)2020-03-18 23:05:00 Test Item Value Reference Range Interpretation Comments POCT GLU (test code = 9769162398) 222 mg/dL 70-110 H Lab Interpretation (test code = Abnormal 96960-9) [facility] PATHOGENS DNA [id number] 22:58:00 Test Item Value Reference Range Interpretation Comments Gram Positive Blood No organisms included in Pathogens by DNA the Blood DNA Probe test Comment-Anaerobic panel were detected. (test code = Further identification [id number]) workup to be performed by culture testing methods. [facility] METABOLIC PANEL (NA, K, CL, CO2, GLUCOSE, BUN, CREATININE, CA)2020-03-18 22:17:00 Test Item Value Reference Range Interpretation Comments NA (test code = 133 mmol/L 135-145 L 7818126788) K (test code = 4.5 mmol/L 3.5-5 0652357631) CL (test code = 108 mmol/L 98-108 8557000913) CO2 TOTAL (test code = 16 mmol/L 23-31 L 5449890569) AGAP (test code = 2-16 0568427443) BUN (test code = 15 mg/dL 7-23 4000139124) GLUCOSE (test code = 175 mg/dL 70-110 H 1896529049) CREATININE (test code = 0.91 mg/dL 0.6-1.25 0460406880) CALCIUM (test code = 7.7 mg/dL 8.6-10.6 L 5428227545) eGFR Calculation mL/min/1.73m2 (Non-) (test code = 6568998405) eGFR Calculation mL/min/1.73m2 () (test code = 9569391763) DIANE (test code = DIANE) Association of [...] tests). Lab Interpretation Abnormal (test code = 28967-0) [facility] [facility]2020[facility]28 22:17:00 Test Item Value Reference Range Interpretation Comments MAGNESIUM (test code = 8554807408) 1.8 mg/dL 1.7-2.4 Lab Interpretation (test code = Normal 46201-4) [facility]PHOSPH[facility]US2020-10-28 22:17:00 Test Item Value Reference Range Interpretation Comments PHOSPHORUS (test code = 8374493297) 4.3 mg/dL 2.5-5 Lab Interpretation (test code = Normal 24132-5) [facility] TexasCBC WITHOUT [id number] 22:09:00 Test Item Value Reference Range Interpretation Comments WBC (test code = 6690-2) See_Comment H [A utomated message] The system [employer] generated this result transmit ludmila reference range : 4.20 - 10.70 10*3/?L. The reference range was not used to interpret this result as normal/abnormal . RBC (test code = 789-8) See_Comment L [Au tomated message] The system [employer] generated this result transmit ludmila reference range [...] See_Comment H [Au tomated message] The system [employer] generated this result transmit ludmila reference range : 150 - 328 10*3/?L. The reference range was not used to interpret this result as normal/abnormal . MPV (test code = 9.7 fL 9.8-13 L 74462-5) RDW-CV (test code = 14.8 % 12.1-15.4 788-0) RDW-SD (test code = 47.0 fL 38.5-51.6 89239-6) NRBC x10^3 (test code = <0.01 See_Comment [Au tomated message] 5712003298) The system [employer] generated this result transmit ludmila reference range : 10*3/?L. The reference range was not used to interpret this result as normal/abnormal . NRBC/100 WBC (test code See_Comment [Au tomated message] = 5716268099) The system [facility] generated this result transmit ludmila reference range : 0.0 - 10.0 /100 WBC s. The reference r batsheva was not used to interpret this result as normal/abnormal . IPF % (test code = 2138082834) Lab Interpretation (test Abnormal code = 24596-7) [facility] TexasPrepar Packed RBC (in units), 2 Units 2020-03-18 19:52:03 Test Item Value Reference Range Interpretation Comments Cross Match Result Compatible (test code = 4409) ISBT Blood Type Code (test code = 331068) Unit Blood Type (test O Pos code = 4410) Unit Number (test [id number] code = 4411) Blood Expiration Date & Time (test code = 604969) Status Information Issued (test code = 4412) Product Red Blood Cells Identification (test code = 4413) Product Code (test G2070W81 Performed at [facility] code = 4414) Laboratory Services - [facility] Blood [address] [place] [address] s [address]Knox Free: [phone] A No. [id number] [facility] TexasNerve [id number] 18:54:54Travis Matias MD ? ? 03/19/2020 11:32 AM Nerve Block Procedure: Femoral Nerve Block and Other Peripheral Nerve Laterality: LeftSurgical Anesthesia: no Start Time: 03/18/2020 1:30 PMEnd Time: 03/18/2020 1:55 PMPost Op Pain Management requested by surgeon per surgical: OR PostingAnesthesiologist: Travis Matias, MDResident/POLE SETTER: Cade Pereyra MDPerformed by: resident/CRNAPreanesthetic timeout completed [...] and sciatic nerve via pop approach usg [facility] TexasPOOR GLUCOSE (AUTOMATED)2020-03-18 16:50:00 Test Item Value Reference Range Interpretation Comments POCT GLU (test code = 4813112008) 154 mg/dL 70-110 H Lab Interpretation (test code = Abnormal 42024-3) [facility] TexasCB WITH [id number] 15:14:00 Test Item Value Reference Range Interpretation [...] RDW-SD (test code = 46.5 fL 38.5-51.6 91532-6) RDW-CV (test code = 15.2 % 12.1-15.4 788-0) PLT (test code = See_Comment H [Automated 777-3) message] The system which generated this result transmit ludmila reference range : 150 - 328 10*3/ ?L. The reference range was not u sed to interpret th is result as normal/abnormal . MPV (test code = 9.6 fL 9.8-13 L 68335-8) NRBC/100 WBC (test See_Comment [Automat ed code = 8143448540) message] The system which generated this result transmit ludmila reference range : 0.0 - 10.0 /100 WBCs. The reference range was not used to interpret this result as normal/abnormal . NRBC x10^3 (test code <0.01 See_Comment [Auto mated = 5959119602) message] The system which generated this result transmit ludmila reference range : 10*3/?L. The reference range was not used to interpret this result as normal/abnormal . GRAN MAT (NEUT) % 80.8 % (test code = 770-8) IMM GRAN % (test code 6.50 % = 8659813366) LYMPH % (test code = 5.9 % 736-9) MONO % (test code = 6.0 % 5905-5) EOS % (test code = 0.6 % 713-8) BASO % (test code = 0.2 % 706-2) GRAN MAT x10^3(ANC) 18.20 10*3/uL 1.99-6.95 H (test code = 5786159850) IMM GRAN x10^3 (test 1.46 10*3/uL 0-0.06 H code = 5289011346) LYMPH x10^3 (test code 1.34 10*3/uL 1.09-3.23 = 731-0) MONO x10^3 (test code 1.36 10*3/uL 0.36-1.02 H = 742-7) EOS x10^3 (test code = 0.14 10*3/uL 0.06-0.53 711-2) BASO x10^3 (test code 0.05 10*3/uL 0.01-0.09 = 704-7) DOHLE BODIES (test Present A code = 7792-5) REACT LYMPHS (test Rare code = 7194661736) Lab Interpretation Abnormal (test code = 49962-5) [facility] METABOLIC PANEL (NA, K, CL, CO2, GLUCOSE, BUN, CREATININE, CA)2020-03-18 15:06:00 Test Item Value Reference Range Interpretation Comments NA (test code = 135 mmol/L 135-145 2622455266) K (test code = 4.1 mmol/L 3.5-5 0974089810) CL (test code = 108 mmol/L 98-108 8829778020) CO2 TOTAL (test code = 18 mmol/L 23-31 L 4614595387) AGAP (test code = 2-16 0886796081) BUN (test code = 16 mg/dL 7-23 9117241829) GLUCOSE (test code = 150 mg/dL 70-110 H 0442353352) CREATININE (test code = 0.86 mg/dL 0.6-1.25 1789654209) CALCIUM (test code = 7.6 mg/dL 8.6-10.6 L 8144265232) eGFR Calculation mL/min/1.73m2 (Non-) (test code = 6035846167) eGFR Calculation mL/min/1.73m2 () (test code = 8432932662) DIANE (test code = DIANE) Association of [...] tests). Lab Interpretation Abnormal (test code = 77218-5) [facility]MAGN[facility]IUM2020-10-28 15:06:00 Test Item Value Reference Range Interpretation Comments MAGNESIUM (test code = 5025798176) 1.9 mg/dL 1.7-2.4 Lab Interpretation (test code = Normal 49507-0) [facility] TexasPHOSPHORUS2020-10-28 15:06:00 Test Item Value Reference Range Interpretation Comments PHOSPHORUS (test code = 5422852443) 3.1 mg/dL 2.5-5 Lab Interpretation (test code = Normal 86721-9) [facility] GLUCOSE (AUTOMATED)2020-03-18 12:49:00 Test Item Value Reference Range Interpretation Comments POCT GLU (test code = 5095776620) 170 mg/dL 70-110 H Lab Interpretation (test code = Abnormal 08600-2) [facility] GLUCOSE (AUTOMATED)2020-03-18 08:54:00 Test Item Value Reference Range Interpretation Comments POCT GLU (test code = 183 mg/dL 70-110 H Notifi ed Provider [id number]) Lab Interpretation (test Abnormal code = 07485-3) [facility] GLUCOSE (AUTOMATED)2020-03-18 05:12:00 Test Item Value Reference Range Interpretation Comments POCT GLU (test code = 189 mg/dL 70-110 H Notifi ed Provider [id number]) Lab Interpretation (test Abnormal code = 62080-4) [facility] TexasType and Screen - ONCE [id number] 04:11:19 Test Item Value Reference Range Interpretation Comments ABO & RH (test code O POSITIVE Performe d at [facility] = 20) Laboratory Serv [facility] Blood Bank3 [facility] s [address]Tkrf Free: [phone] A No. [id number] IAT (test code = Negative Performed a t [facility] 1185) Laboratory Serv [facility] Blood Bank3 [facility] s [address]Etmd Free: [phone] A No. [id number] [facility] GLUCOSE (AUTOMATED)2020-03-18 03:20:00 Test Item Value Reference Range Interpretation Comments POCT GLU (test code = 9078045887) 169 mg/dL 70-110 H Lab Interpretation (test code = Abnormal 88104-3) [facility] GLUCOSE (AUTOMATED)2020-03-18 01:48:00 Test Item Value Reference Range Interpretation Comments POCT GLU (test code = 6305611462) 170 mg/dL 70-110 H Lab Interpretation (test code = Abnormal 80139-0) [facility] GLUCOSE (AUTOMATED)2020-03-17 17:13:00 Test Item Value Reference Range Interpretation Comments POCT GLU (test code = 148 mg/dL 70-110 H Notifi ed Provider [id number]) Lab Interpretation (test Abnormal code = 73544-7) [facility]PO[facility]SE [facility]AUT[facility]ATED)2020-03-17 13:13:00 Test Item Value Reference Range Interpretation Comments POCT GLU (test code = 167 mg/dL 70-110 H Notifi ed Provider [id number]) Lab Interpretation (test Abnormal code = 61020-6) [facility] TexasVancomycin Trough Level - Draw within 30 minutes prior to 4TH dose.2020-03-17 10:44:00 Test Item Value Reference Range Interpretation Comments VANCO TROUGH (test code 5.0 ug/mL 10-20 L = 3767749806) DIANE (test code = DIANE) Toxic Range: ?>20 ug/mL 15-20 ug/mL is recommended for severe infection or when Vancomycin MILLICENT is greater than or equal to 2. Lab Interpretation (test Abnormal code = 10008-7) [facility] with [id number] 10:21:00 Test Item Value Reference Range Interpretation [...] RDW-SD (test code = 43.5 fL 38.5-51.6 48653-0) RDW-CV (test code = 14.1 % 12.1-15.4 788-0) PLT (test code = See_Comment H [Automated 777-3) message] The system which generated this result transmit ludmila reference range : 150 - 328 10*3/ ?L. The reference range was not u sed to interpret th is result as normal/abnormal . MPV (test code = 10.3 fL 9.8-13 76494-7) NRBC/100 WBC (test See_Comment [Automat ed code = 4183149556) message] The system which generated this result transmit ludmila reference range : 0.0 - 10.0 /100 WBCs. The reference range was not used to interpret this result as normal/abnormal . NRBC x10^3 (test code <0.01 See_Comment [Auto mated = 7856630558) message] The system which generated this result transmit ludmila reference range : 10*3/?L. The reference range was not used to interpret this result as normal/abnormal . SEG % (test code = 65 % 33-76 73133-7) BAND % (test code = 29 % 0-1 H 20905-8) MYELO % (test code = 2 % See_Comment H [Autom ated 97081-5) message] The system which generated this result transmit ludmila reference range : <=0. The refere nce range was not u sed to interpret th is result as normal/abnormal . LYMPH % (test code = 4 % 14-54 L 61308-0) ANC (test code = 22.23 10*3/uL 1.99-6.95 H 2929163509) PLT ESTIMATE (test Increased Normal A code = 9317-9) Lab Interpretation Abnormal (test code = 61442-3) [facility] Metabolic Panel (NA, K, CL, CO2, GLUCOSE, BUN, CREATININE, CA)2020-03-17 09:49:00 Test Item Value Reference Range Interpretation Comments NA (test code = 134 mmol/L 135-145 L 7914796272) K (test code = 3.9 mmol/L 3.5-5 8513222485) CL (test code = 109 mmol/L 98-108 H 5011450311) CO2 TOTAL (test code = 16 mmol/L 23-31 L 3634982873) AGAP (test code = 2-16 7846280551) BUN (test code = 32 mg/dL 7-23 H 1003346703) GLUCOSE (test code = 176 mg/dL 70-110 H 8867553860) CREATININE (test code = 1.16 mg/dL 0.6-1.25 1440629144) CALCIUM (test code = 7.6 mg/dL 8.6-10.6 L 4679753318) eGFR Calculation mL/min/1.73m2 (Non-) (test code = 5078912040) eGFR Calculation mL/min/1.73m2 () (test code = 9619096867) DIANE (test code = DIANE) Association of [...] tests). Lab Interpretation Abnormal (test code = 70129-6) [facility] TexasACTIVATED PARTIAL THRMPLAS [id number] 09:44:00 Test Item Value Reference Range Interpretation Comments APTT Patient (test See_Comment H [Automat ed code = 3173-2) message] The system which generated this result transmitted reference range : 23 - 38 Seconds . The reference range was not used to interpr et this result as normal/abnormal . DIANE (test code = DIANE) The [facility] patient population mean normal value for aPTT is 30 seconds. Lab Interpretation Abnormal (test code = 39741-9) [facility] GLUCOSE (AUTOMATED)2020-03-17 09:14:00 Test Item Value Reference Range Interpretation Comments POCT GLU (test code = 0771533474) 179 mg/dL 70-110 H Lab Interpretation (test code = Abnormal 09914-1) [facility] GLUCOSE (AUTOMATED)2020-03-17 05:09:00 Test Item Value Reference Range Interpretation Comments POCT GLU (test code = 6412574759) 232 mg/dL 70-110 H Lab Interpretation (test code = Abnormal 73074-4) [facility] GLUCOSE (AUTOMATED)2020-03-17 05:09:00 Test Item Value Reference Range Interpretation Comments POCT GLU (test code = 1935753770) 207 mg/dL 70-110 H Lab Interpretation (test code = Abnormal 04877-5) [facility] PARTIAL THRMPLAS [id number] 04:48:00 Test Item Value Reference Range Interpretation Comments APTT Patient (test See_Comment H [Automat ed code = 3173-2) message] The system which generated this result transmitted reference range : 23 - 38 Seconds . The reference range was not used to interpr et this result as normal/abnormal . DIANE (test code = DIANE) The [facility] patient population mean normal value for aPTT is 30 seconds. Lab Interpretation Abnormal (test code = 02434-8) [facility] TexasGRAM NEGATIVE BLOOD PATHOGENS DNA [id number]-[id number] 02:54:00 Test Item Value Reference Range Interpretation Comments Escherichia coli (test Positive Negative, See A code = 04843-0) Comment/Narrative DIANE (test code = DIANE) See blood culture result for additional information. ?Testing included eight identification and six resistance marker targets. Lab Interpretation Abnormal (test code = 67628-0) [facility] ONLY COVID [id number] 00:47:00COVID DMT InterpretationInterpretation/Recommendations:Tests (PCR) for Active Infection [...] would beimportant to perform if the IgM zgfi-PWQVP-83 antibody test is positive. B. ?A test [...] based upon aggregate data pooled from the [facility] medical record includingboth current and prior COVID-19 related testing results for the following tests: SARS-CoV-2 PCR, SARS-CoV-2 Rapid ID NOW, CoV-2 IgM, and CoV-2 IgG. These interpretations are autopopulated into [facility] based on computerized algorithms matching an interpretation code number to the patient's set of test results. While a clinical pathologist evaluates the combinations for clinical accuracy, clinical correlation is recommended as it may not take into account very remote prior testing. Furthermore, it does not consider testing a patient may have had outside of the [facility] system. Additionally, it should be noted that the computerized algorithm treats the results for PCR testing and Rapid ID NOW testing (alsoPCR) synonymously, and thus, refers to both testing methodologies as PCR tests. Given that the sensitivity of [facility]'s Rapid ID NOW testing platform is analogous [...] be tested with alternative PCR molecular test. [facility] LABORATORY SERVICESCOVID XmsdlzqEGVE-ZdE-5 Rapid ID NOW (no units) ? ? Date ? Value ? 03/16/2020 ? Not Detected ? ? ? 02/03/2020 ? Not Detected ? ? ? 11/16/2019 ? Not Detected ? ? ? 09/17/2019 ? Not Detected ? [facility] LABORATORY SERVICES [facility] TexasType and Screen - ONCE [id number] 00:17:40 Test Item Value Reference Range Interpretation Comments ABO & RH (test code O Positive Performe d at [facility] = 20) Laboratory Serv [facility] Blood Bank[address] [place], [place] [address]Toll Free: [phone] A No. [id number] IAT (test code = Negative Performed a t [facility] 1185) Laboratory Serv [facility] [address] [place], [place] [address]Toll Free: [phone] A No. [id number] [facility] TexasBASIC METABOLIC PANEL (NA, K, CL, CO2, GLUCOSE, BUN, CREATININE, CA)2020-03-16 22:48:00 Test Item Value Reference Range Interpretation Comments NA (test code = 134 mmol/L 135-145 L 3307855083) K (test code = 3.5 mmol/L 3.5-5 4730844127) CL (test code = 106 mmol/L 98-108 3417644303) CO2 TOTAL (test code = 15 mmol/L 23-31 L 3314367800) AGAP (test code = 2-16 4854480201) BUN (test code = 37 mg/dL 7-23 H 3934804787) GLUCOSE (test code = 226 mg/dL 70-110 H 2294103155) CREATININE (test code = 1.37 mg/dL 0.6-1.25 H 4035809774) CALCIUM (test code = 7.4 mg/dL 8.6-10.6 L 5226411613) eGFR Calculation mL/min/1.73m2 (Non-) (test code = 1447666947) eGFR Calculation mL/min/1.73m2 () (test code = 0844345941) DIANE (test code = DIANE) Association of [...] tests). Lab Interpretation Abnormal (test code = 63590-4) [facility]POCT GLUCOSE (AUTOMATED)2020-03-16 22:04:00 Test Item Value Reference Range Interpretation Comments POCT GLU (test code = 3894998510) 232 mg/dL 70-110 H Lab Interpretation (test code = Abnormal 96135-6) [facility] TexasaPTT (for use with Heparin Drip)2020-03-16 21:55:00 Test Item Value Reference Range Interpretation Comments APTT Patient (test See_Comment HH [Automat ed code = 3173-2) message] The system which generated this result transmitted reference range : 23 - 38 Seconds . The reference range was not used to interpr et this result as normal/abnormal . DIANE (test code = DIANE) The [facility] patient population mean normal value for aPTT is 30 seconds. Lab Interpretation Abnormal (test code = 66251-6) [facility] TexasUS RETROPERITONEAL [id number] 17:51:51 Essentially normal renal ultrasound except for [...] thickness. Partially visualized liver appears diffusely steatotic. [facility], Radiant Results Inft User - 03/16/2020 12:52 [...] outlet obstruction.Correlate with UA.Partially visualized diffuse hepatic steatosis.[facility] TexasPOOR GLUCOSE (AUTOMATED)2020-03-16 16:55:00 Test Item Value Reference Range Interpretation Comments POCT GLU (test code = 246 mg/dL 70-110 H Notifi ed Provider 8643327036) Lab Interpretation (test Abnormal code = 37347-1) [facility] TexasURINALYSIS2020-10-26 16:20:00 Test Item Value Reference Range Interpretation Comments APPEARANCE (test code = Hazy Clear A 2451241293) COLOR (test code = Yellow Yellow 8365779563) PH (test code = 4.8-8.0 6992365587) SP GRAVITY (test code = 1.003-1.030 1168833038) GLU U QUAL (test code = 150 mg/dL Normal A 2865514758) BLOOD (test code = Negative Negative 1117499903) KETONES (test code = Negative Negative 2299517496) PROTEIN (test code = 30 mg/dL Negative A 2887-8) UROBILIN (test code = Normal Normal 1381559387) BILIRUBIN (test code = Negative Negative 5589950492) NITRITE (test code = Negative Negative 6428487850) LEUK PETER (test code = Negative Negative 1358447843) RBC/HPF (test code = See_Comment H [Autom ated message] 1919192237) The system [employer] generated this result transmit ludmila reference range : 0 - 3 HPF. The refe rence range was not u sed to interpret th is result as normal/abnormal . WBC/HPF (test code = See_Comment H [Autom ated message] 0648281160) The system [employer] generated this result transmit ludmila reference range : 0 - 5 HPF. The refe rence range was not u sed to interpret th is result as normal/abnormal . BACTERIA (test code = Negative Negative 7251160339) AMORPHOUS (test code = Rare Rare HPF 2195862838) HYAL CAST (test code = See_Comment H [Aut omated message] 8349752368) The system [employer] generated this result transmit ludmila reference range : <=2 LPF. The refere nce range was not u sed to interpret th is result as normal/abnormal . Lab Interpretation (test Abnormal code = 97410-1) [facility] TexasPOCT GLUCOSE (AUTOMATED)2020-03-16 16:06:00 Test Item Value Reference Range Interpretation Comments POCT GLU (test code = 286 mg/dL 70-110 H Notifi ed Provider 9106656539) Lab Interpretation (test Abnormal code = 54289-8) [facility] TexasLOW-DENSITY LIPOPROTEIN, [id number] 15:25:00 Test Item Value Reference Range Interpretation Comments dLDL Chol (test code = 16994-2) 42 mg/dL <130 Lab Interpretation (test code = Normal 27274-8) [facility] TexasURIC [id number] 15:15:00 Test Item Value Reference Range Interpretation Comments URIC ACID (test code = 2852240141) 10.1 mg/dL 3.6-8 H Lab Interpretation (test code = Abnormal 85617-7) [facility] TexasMAGNESIUM2020-10-26 15:07:00 Test Item Value Reference Range Interpretation Comments MAGNESIUM (test code = 0485773351) 2.0 mg/dL 1.7-2.4 Lab Interpretation (test code = Normal 90206-9) [facility] TexasPHOSPHORUS2020-10-26 15:07:00 Test Item Value Reference Range Interpretation Comments PHOSPHORUS (test code = 5342093233) 4.0 mg/dL 2.5-5 Lab Interpretation (test code = Normal 30193-2) [facility] METABOLIC PANEL (NA, K, CL, CO2, GLUCOSE, BUN, CREATININE, CA)2020-03-16 14:51:00 Test Item Value Reference Range Interpretation Comments NA (test code = 135 mmol/L 135-145 6124897028) K (test code = 2.7 mmol/L 3.5-5 LL 0721669774) CL (test code = 107 mmol/L 98-108 3617513656) CO2 TOTAL (test code = 17 mmol/L 23-31 L 8728661425) AGAP (test code = 2-16 1634260842) BUN (test code = 39 mg/dL 7-23 H 3344821408) GLUCOSE (test code = 259 mg/dL 70-110 H 6001502913) CREATININE (test code = 1.46 mg/dL 0.6-1.25 H 3345466138) CALCIUM (test code = 7.3 mg/dL 8.6-10.6 L 2141270027) eGFR Calculation mL/min/1.73m2 (Non-) (test code = 3834141641) eGFR Calculation mL/min/1.73m2 () (test code = 6327413464) DIANE (test code = DIANE) Association of [...] tests). Lab Interpretation Abnormal (test code = 77789-6) [facility] TexasaPTT2020-10-26 14:49:00 Test Item Value Reference Range Interpretation Comments APTT Patient (test See_Comment [Automat ed code = 3173-2) message] The system which generated this result transmitted reference range : 23 - 38 Seconds . The reference range was not used to interpr et this result as normal/abnormal . DIANE (test code = DIANE) The [facility] patient population mean normal value for aPTT is 30 seconds. Lab Interpretation Normal (test code = 08102-1) [facility] TexasProthrombin Time (PT) / [id number] 14:47:00 Test Item Value Reference Range Interpretation [...] tions. Lab Interpretation (test Abnormal code = 95164-0) [facility] TexasXR CHEST 1 [id number] 13:17:23 No acute cardiopulmonary process. Preliminary Report [...] pleural effusion. Musculoskeletal: No acute osseous abnormality. [facility], Radiant Results Inft User - 03/16/2020 8:18 [...] this study and agree with theabove report. [facility] TexasCT FOOT LEFT WO [id number] 12:15:57 Findings consistent with calcaneal osteomyelitis with [...] septic arthritis.Preliminary Report Dictated by Resident: Lexi eFldman MD., have reviewed this study and agree with the abovereport. [facility] TexasXR FOOT <3 VW [id number] 11:29:14 Skin defect and subcutaneous gas in [...] calcaneus.Moderate midfoot osteoarthrosis.Preliminary Report Dictated by Resident: Lexi Feldman MD., have reviewed this study and agree with the abovereport.[facility] TexasFERRITIN [id number] 10:07:00 Test Item Value Reference Range Interpretation Comments FERRITIN (test code = 255.0 ng/mL 18464 1191795364) DIANE (test code = DIANE) Biotin has been reported to cause a negative bias, interpret results relative to patient's use of biotin. Lab Interpretation (test Normal code = 50421-3) [facility] TexasTROPONIN [id number] 09:44:00 Test Item Value Reference Range Interpretation Comments TROPONIN I (test 0.020 ng/mL See_Comment [Automated code = 3147342899) message] The system which generated this result [...] ? Lab Interpretation Normal (test code = 66449-8) [facility] TexasN-TERMINAL [id number] 09:41:00 Test Item Value Reference Range Interpretation Comments NT-proBNP (test code 2680 pg/mL See_Comment H [Autom ated = [id number]) message] The system which generated this result transmitted reference range : <=125. The reference range was not used to interpret this result as normal/abnormal . DIANE (test code = DIANE) Biotin has been reported to cause a negative bias, interpret results relative to patient's use of biotin. Lab Interpretation Abnormal (test code = 25878-2) [facility] 09[facility]31:00 Test Item Value Reference Range Interpretation Comments IRON (test code = 3288457623) 11 ug/dL 50-160 L Lab Interpretation (test code = Abnormal 95841-0) [facility] TexasTHYROID STIMULATING [id number] 09:05:00 Test Item Value Reference Range Interpretation Comments TSH (test code = See_Comment [Automated message] 5832989982) The system [employer] generated this result transmitted ref erence range: 0.45 - 4 .70 mIU/L. The refe rence range was not u sed to interpret this result as normal/abnor mal. Lab Interpretation (test Normal code = 29440-8) [facility] TexasLactic Acid Whole [id number] 08:28:00 Test Item Value Reference Range Interpretation Comments LACTIC ACID (test code = 2.60 mmol/L 6895678198) [facility]COVID-19 (ID NOW RAPID TESTING)2020-03-16 08:08:00 Test Item Value Reference Range Interpretation Comments SARS-CoV-2 Rapid ID NOW Not Detected Not Detected (test code = 90455-5) DIANE (test code = DIANE) ID NOW COVID-19 Assay is an isothermal nucleic acid amplification test intended for the qualitative detection of nucleic acid from SARS-CoV-2 viral RNA in nasopharyngeal (FLOOR SUPERVISOR) specimens. It is used under Emergency Use [...] indicated. Lab Interpretation Normal (test code = 60528-4) [facility] TexasSEDIMENTATION [id number] 07:43:00 Test Item Value Reference Range Interpretation Comments ESR (test code = See_Comment H [Automated message] 1563764126) The system [employer] generated this result transmitted ref erence range: 0 - 10 m m/HR. The reference r batsheva was not used to interpret this result as normal/abnor mal. Lab Interpretation (test Abnormal code = 72273-2) [facility] TexasGLYCOSYLATED HEMOGLOBIN (A1C)2020-03-16 07:36:00 Test Item Value Reference Range Interpretation Comments HGB A1C (test code = 10.8 % 4-6 H 4548-4) DIANE (test code = DIANE) %A1C (NGSP) Interpretation (ADA)4.8-5.6 ? ? Normal or (Non-Diabetic Range)5.7-6.4 ? ? Increased Risk (Pre-Diabetic)>6.5 ?Diabetes Indicated Lab Interpretation Abnormal (test code = 25047-8) [facility] TexasLIPID PANEL (31715)(TOTAL CHOLESTEROL, TRIGLYCERIDES, HDL)2020-03-16 07:34:00 Test Item Value Reference Range Interpretation Comments CHOL (test code = 174 mg/dL 120-200 5438983369) HDL (test code = 13 mg/dL >40 L 3770380764) HDLC RATIO (test code = See_Comment H [Au tomated message] 2922035567) The system [employer] generated this result transmitted ref erence range: <=5.0. T he reference range was not used to int erpret this result as normal/abnormal . TRIG (test code = 490 mg/dL 30-170 H 1176651788) LDL CHOL (test code = Unable to calculate 95756-7) LDL due to elev ated triglyceride le haile greater than 40 0 mg/dL. VLDL (test code = 98 mg/dL 5-60 H 1601826034) Lab Interpretation Abnormal (test code = 89539-8) [facility] TexasCOMP. METABOLIC PANEL (90688)2020-03-16 06:40:00 Test Item Value Reference Range Interpretation Comments NA (test code = 134 mmol/L 135-145 L 3001451785) K (test code = 4.1 mmol/L 3.5-5 6524030257) CL (test code = 100 mmol/L 98-108 2847391635) CO2 TOTAL (test code = 16 mmol/L 23-31 L 9229236309) AGAP (test code = 2-16 H 0788344475) BUN (test code = 41 mg/dL 7-23 H 8134614531) GLUCOSE (test code = 382 mg/dL 70-110 H 2099355369) CREATININE (test code = 1.74 mg/dL 0.6-1.25 H 9354075672) TOTAL BILI (test code = 0.6 mg/dL 0.1-1.0 4127626933) CALCIUM (test code = 8.6 mg/dL 8.6-10.6 4089735771) T PROTEIN (test code = 6.5 g/dL 6.3-8.2 3219311903) ALBUMIN (test code = 3.1 g/dL 3.5-5 L 6372172626) ALK PHOS (test code = 196 U/L 34-122 H 5206852818) ALTv (test code = 61 U/L 5-50 H 1742-6) AST(SGOT) (test code = 63 U/L 13-40 H 7517863895) eGFR Calculation mL/min/1.73m2 (Non-) (test code = 3524817478) eGFR Calculation mL/min/1.73m2 () (test code = 2327273493) DIANE (test code = DIANE) Association of [...] tests). Lab Interpretation Abnormal (test code = 37811-5) [facility] WITH [id number] 06:28:00 Test Item Value Reference Range Interpretation [...] RDW-SD (test code = 38.5 fL 38.5-51.6 02406-4) RDW-CV (test code = 13.0 % 12.1-15.4 788-0) PLT (test code = See_Comment H [Automated 777-3) message] The system which generated this result transmit ludmila reference range : 150 - 328 10*3/ ?L. The reference range was not u sed to interpret th is result as normal/abnormal . MPV (test code = 10.6 fL 9.8-13 04153-1) NRBC/100 WBC (test See_Comment [Automat ed code = 8597155498) message] The system which generated this result transmit ludmila reference range : 0.0 - 10.0 /100 WBCs. The reference range was not used to interpret this result as normal/abnormal . NRBC x10^3 (test code <0.01 See_Comment [Auto mated = 0569182031) message] The system which generated this result transmit ludmila reference range : 10*3/?L. The reference range was not used to interpret this result as normal/abnormal . GRAN MAT (NEUT) % 82.8 % (test code = 770-8) IMM GRAN % (test code 3.40 % = 6236361877) LYMPH % (test code = 7.1 % 736-9) MONO % (test code = 4.9 % 5905-5) EOS % (test code = 1.2 % 713-8) BASO % (test code = 0.6 % 706-2) GRAN MAT x10^3(ANC) 16.00 10*3/uL 1.99-6.95 H (test code = 5297362807) IMM GRAN x10^3 (test 0.65 10*3/uL 0-0.06 H code = 8616762303) LYMPH x10^3 (test code 1.38 10*3/uL 1.09-3.23 = 731-0) MONO x10^3 (test code 0.94 10*3/uL 0.36-1.02 = 742-7) EOS x10^3 (test code = 0.23 10*3/uL 0.06-0.53 711-2) BASO x10^3 (test code 0.11 10*3/uL 0.01-0.09 H = 704-7) Lab Interpretation Abnormal (test code = 72628-8) [facility] TexasLautic Acid Whole [id number] 06:14:00 Test Item Value Reference Range Interpretation Comments LACTIC ACID (test code = 4.72 mmol/L 8882539042) [facility] GLUCOSE (AUTOMATED)2020-02-05 17:03:00 Test Item Value Reference Range Interpretation Comments POCT GLU (test code = 8962298837) 173 mg/dL 70-110 H Lab Interpretation (test code = Abnormal 99578-4) [facility] GLUCOSE (AUTOMATED)2020-02-05 15:44:00 Test Item Value Reference Range Interpretation Comments POCT GLU (test code = 3985841907) 127 mg/dL 70-110 H Lab Interpretation (test code = Abnormal 31085-7) [facility] GLUCOSE (AUTOMATED)2020-02-05 12:58:00 Test Item Value Reference Range Interpretation Comments POCT GLU (test code = 5283998193) 112 mg/dL 70-110 H Lab Interpretation (test code = Abnormal 12430-4) [facility] TexasTROPONIN [id number] 10:31:00 Test Item Value Reference Range Interpretation Comments TROPONIN I (test 0.022 ng/mL See_Comment [Automated code = 8737758909) message] The system which generated this result [...] ? Lab Interpretation Normal (test code = 95535-3) [facility] TexasN-TERMINAL [id number] 10:28:00 Test Item Value Reference Range Interpretation Comments NT-proBNP (test code 1840 pg/mL See_Comment H [Autom ated = 7837025493) message] The system which generated this result transmitted reference range : <=125. The reference range was not used to interpret this result as normal/abnormal . DIANE (test code = DIANE) Biotin has been reported to cause a negative bias, interpret results relative to patient's use of biotin. Lab Interpretation Abnormal (test code = 84300-5) [facility] TexasBASI METABOLIC PANEL (NA, K, CL, CO2, GLUCOSE, BUN, CREATININE, CA)2020-02-05 10:23:00 Test Item Value Reference Range Interpretation Comments NA (test code = 139 mmol/L 135-145 6930549460) K (test code = 3.5 mmol/L 3.5-5 9748690885) CL (test code = 102 mmol/L 98-108 2744155854) CO2 TOTAL (test code = 28 mmol/L 23-31 8214279321) AGAP (test code = 2-16 4735852920) BUN (test code = 20 mg/dL 7-23 8087910491) GLUCOSE (test code = 138 mg/dL 70-110 H 4503726077) CREATININE (test code = 1.16 mg/dL 0.6-1.25 3097130560) CALCIUM (test code = 8.8 mg/dL 8.6-10.6 6853060837) eGFR Calculation mL/min/1.73m2 (Non-) (test code = 9165639604) eGFR Calculation mL/min/1.73m2 () (test code = 4531296282) DIANE (test code = DIANE) Association of [...] tests). Lab Interpretation Abnormal (test code = 02264-1) [facility] TexasURIC [id number] 10:23:00 Test Item Value Reference Range Interpretation Comments URIC ACID (test code = 4378492922) 9.1 mg/dL 3.6-8 H Lab Interpretation (test code = Abnormal 57341-6) [facility] TexasCB WITH [id number] 09:46:00 Test Item Value Reference Range Interpretation [...] RDW-SD (test code = 43.9 fL 38.5-51.6 97417-2) RDW-CV (test code = 13.5 % 12.1-15.4 788-0) PLT (test code = See_Comment [Automated 777-3) message] The sy stem which generated this result transmitted reference range : 150 - 328 10*3/ ?L. The reference r batsheva was not used to interpret this result as normal/abnormal . MPV (test code = 10.9 fL 9.8-13 83059-6) NRBC/100 WBC (test See_Comment [Automat ed code = 7012740483) message] The system which generated this result transmitted reference range : 0.0 - 10.0 /100 WBCs. The refer ence range was not u sed to interpret th is result as normal/abnormal . NRBC x10^3 (test code <0.01 See_Comment [Auto mated = 7113038681) message] The s ystem which generated this result transmitted reference range : 10*3/?L. The reference range was not used to interpret this result as normal/abnormal . GRAN MAT (NEUT) % 63.9 % (test code = 770-8) IMM GRAN % (test code 0.30 % = 6627809388) LYMPH % (test code = 21.1 % 736-9) MONO % (test code = 10.9 % 5905-5) EOS % (test code = 3.4 % 713-8) BASO % (test code = 0.4 % 706-2) GRAN MAT x10^3(ANC) 4.51 10*3/uL 1.99-6.95 (test code = 2558621484) IMM GRAN x10^3 (test <0.03 0-0.06 code = 3990052252) LYMPH x10^3 (test code 1.49 10*3/uL 1.09-3.23 = 731-0) MONO x10^3 (test code 0.77 10*3/uL 0.36-1.02 = 742-7) EOS x10^3 (test code = 0.24 10*3/uL 0.06-0.53 711-2) BASO x10^3 (test code 0.03 10*3/uL 0.01-0.09 = 704-7) Lab Interpretation Abnormal (test code = 30889-4) [facility]PO[facility] GLU[facility]SE (AUTOMATED)2020-02-05 09:40:00 Test Item Value Reference Range Interpretation Comments POCT GLU (test code = 4306742882) 124 mg/dL 70-110 H Lab Interpretation (test code = Abnormal 10672-1) [facility] TexasUREA NITROGEN, URINE [id number] 05:55:00 Test Item Value Reference Range Interpretation Comments UREA N UR (test code = 3366799844) 119 mg/dL [facility] TexasLIPID PANEL (53152)(TOTAL CHOLESTEROL, TRIGLYCERIDES, HDL)2020-02-05 03:54:00 Test Item Value Reference Range Interpretation Comments CHOL (test code = 187 mg/dL 120-200 1752411228) HDL (test code = 32 mg/dL >40 L 3886369128) HDLC RATIO (test code = See_Comment H [Au tomated message] 4222427051) The system [employer] generated this result transmit ludmila reference range : <=5.0. The refe rence range was not u sed to interpret th is result as normal/abnormal . TRIG (test code = 164 mg/dL 30-170 7463486328) LDL CHOL (test code = 122 mg/dL See_Comment [Auto mated message] 01407-6) The system [employer] generated this result transmit ludmila reference range : <=160. The refe rence range was not u sed to interpret th is result as normal/abnormal . VLDL (test code = 33 mg/dL 5-60 9349737825) Lab Interpretation (test Abnormal code = 94128-2) [facility] TexasPROTEIN CREAT RATIO URINE [id number] 23:54:00 Test Item Value Reference Range Interpretation Comments T. PROT U (test code 22 mg/dL = 2888-6) CREAT U (test code = 27.1 mg/dL 9088305928) Protein/Creatinine 0.0-2.0 Ratio Urine (test code = 7238688414) DIANE (test code = DAINE) Random Urine Total Protein Reference Ranges Random Specimen: ? Less than 10 mg/dLFirst Morning Specimen: ? ?Less than 20 mg/dL ? [facility] TexasSODIUM, URINE [id number] 23:35:00 Test Item Value Reference Range Interpretation Comments NA URINE (test code = 8048195543) 130 mmol/L [facility]POCT GLUCOSE (AUTOMATED)2020-02-04 21:42:00 Test Item Value Reference Range Interpretation Comments POCT GLU (test code = 1375167786) 214 mg/dL 70-110 H Lab Interpretation (test code = Abnormal 30209-1) [facility] TexasTROPONIN [id number] 18:36:00 Test Item Value Reference Range Interpretation Comments TROPONIN I (test 0.021 ng/mL See_Comment [Automated code = 7872516142) message] The system which generated this result [...] ? Lab Interpretation Normal (test code = 42666-1) [facility] TexasPROCALCITONIN2020-09-15 18:03:00 Test Item Value Reference Range Interpretation Comments Procalcitonin (test 0.02 ng/mL <0.07 code = 0975508134) DIANE (test code = DIANE) INTERPRETATION OF [...] lung abscess/empyema. For further information please refer to:[email or web address] Lab Interpretation Normal (test code = 79759-2) [facility]POCT GLUCOSE (AUTOMATED)2020-02-04 17:22:00 Test Item Value Reference Range Interpretation Comments Lab Interpretation (test code = Abnormal 81894-3) [facility] TexasVITAMIN B12, [id number] 17:13:00 Test Item Value Reference Range Interpretation Comments VIT B12 (test code = 428 pg/mL 240-930 4623238978) DIANE (test code = DIANE) Biotin has been reported to cause a positive bias, interpret results relative to patient's use of biotin. Lab Interpretation (test Normal code = 79573-6) [facility] TexasVITAMIN D, [id number] 16:59:00 Test Item Value Reference Range Interpretation Comments VIT D 25OH (test code = 20 ng/mL 25-80 L 75435-6) DIANE (test code = DIANE) Deficiency: <20 ng/mLInsufficiency: 20-24 ng/mLOptimal: 25-80 ng/mL Lab Interpretation (test Abnormal code = 45966-3) [facility] TexasXR FOOT 3+ VW [id number] 13:07:34HISTORY: Left heel ulcer and wound. FINDINGS: [...] or signs of osteomyelitis inthe left foot bones.[facility] TexasPOCT GLUCOSE (AUTOMATED)2020-02-04 13:04:00 Test Item Value Reference Range Interpretation Comments POCT GLU (test code = 9335889329) 232 mg/dL 70-110 H Lab Interpretation (test code = Abnormal 38444-9) [facility] TexasXR CHEST 1 [id number] 12:54:48HISTORY: CHF. TECHNIQUE: Portable AP view of [...] CONCLUSIONS: Mild cardiomegaly and small left pleural effusion.[facility], Radiant Results Inft User - 02/04/2020 7:55 [...] artery.CONCLUSIONS: Mild cardiomegaly and small left pleural effusion.[facility] TexasABORH [id number] 10:33:05 Test Item Value Reference Range Interpretation Comments ABO & RH (test code O Positive Performe d at [facility] = 20) Laboratory Serv [facility] [address] [place] [address]Uacy Free: [phone] A No. [id number] [facility] TexasPOCT GLUCOSE (AUTOMATED)2020-02-04 08:45:00 Test Item Value Reference Range Interpretation Comments POCT GLU (test code = 6498391296) 141 mg/dL 70-110 H Lab Interpretation (test code = Abnormal 37283-6) [facility] TexasTROPONIN [id number] 08:34:00 Test Item Value Reference Range Interpretation Comments TROPONIN I (test 0.039 ng/mL See_Comment H [Automated code = 7760192350) message] The system which generated this result [...] ? Lab Interpretation Abnormal (test code = 52841-8) [facility] TexasIRON [id number] 08:31:00 Test Item Value Reference Range Interpretation Comments IRON (test code = 4798458274) 38 ug/dL 50-160 L TIBC (test code = 0438892646) 352 ug/dL 250-410 % FE SAT (test code = 4740430520) 11 % 20-50 L Lab Interpretation (test code = Abnormal 02368-8) [facility] TexasN-TERMINAL [id number] 08:31:00 Test Item Value Reference Range Interpretation Comments NT-proBNP (test code 1920 pg/mL See_Comment H [Autom ated = 2246507990) message] The system which generated this result transmitted reference range : <=125. The reference range was not used to interpret this result as normal/abnormal . DIANE (test code = DIANE) Biotin has been reported to cause a negative bias, interpret results relative to patient's use of biotin. Lab Interpretation Abnormal (test code = 51129-0) [facility] TexasLactate [id number] 08:22:00 Test Item Value Reference Range Interpretation Comments LDH (test code = 2110107875) 590 U/L 300-600 Lab Interpretation (test code = Normal 05808-0) [facility] (NA, K, CL, CO2, GLUCOSE, BUN, CREATININE, CA)2020-02-04 08:22:00 Test Item Value Reference Range Interpretation Comments NA (test code = 140 mmol/L 135-145 6905523938) K (test code = 4.0 mmol/L 3.5-5 0901726570) CL (test code = 106 mmol/L 98-108 1083339157) CO2 TOTAL (test code = 27 mmol/L 23-31 1782479676) AGAP (test code = 2-16 8143624575) BUN (test code = 12 mg/dL 7-23 1116618640) GLUCOSE (test code = 150 mg/dL 70-110 H 5449179737) CREATININE (test code = 0.91 mg/dL 0.6-1.25 8583838128) CALCIUM (test code = 9.0 mg/dL 8.6-10.6 6691236255) eGFR Calculation mL/min/1.73m2 (Non-) (test code = 3192540445) eGFR Calculation mL/min/1.73m2 () (test code = 4562766035) DIANE (test code = DIANE) Association of [...] tests). Lab Interpretation Abnormal (test code = 70627-5) [facility] TexasURIC [id number] 08:22:00 Test Item Value Reference Range Interpretation Comments URIC ACID (test code = 9888178658) 7.7 mg/dL 3.6-8 Lab Interpretation (test code = Normal 11766-4) [facility] TexasType and Screen - ONCE [id number] 08:06:05 Test Item Value Reference Range Interpretation Comments ABO & RH (test code O Positive Performe d at [facility] = 20) Laboratory Serv [facility] [address] [place], [place] [address]Toll Free: [phone] A No. [id number] IAT (test code = Negative Performed a t [facility] 1185) Laboratory [facility] [address] [place] [address]Mieq Free: [phone] A No. [id number] [facility] TexasCBC WITH [id number] 07:08:00 Test Item Value Reference Range Interpretation [...] RDW-SD (test code = 45.0 fL 38.5-51.6 26401-9) RDW-CV (test code = 13.7 % 12.1-15.4 788-0) PLT (test code = See_Comment [Automated 777-3) message] The sy stem which generated this result transmitted reference range : 150 - 328 10*3/ ?L. The reference r batsheva was not used to interpret this result as normal/abnormal . MPV (test code = 9.8 fL 9.8-13 76241-6) NRBC/100 WBC (test See_Comment [Automat ed code = 3028466317) message] The system which generated this result transmitted reference range : 0.0 - 10.0 /100 WBCs. The refer ence range was not u sed to interpret th is result as normal/abnormal . NRBC x10^3 (test code <0.01 See_Comment [Auto mated = 4307314007) message] The s ystem which generated this result transmitted reference range : 10*3/?L. The reference range was not used to interpret this result as normal/abnormal . GRAN MAT (NEUT) % 50.8 % (test code = 770-8) IMM GRAN % (test code 0.20 % = 3055557911) LYMPH % (test code = 34.0 % 736-9) MONO % (test code = 9.8 % 5905-5) EOS % (test code = 4.8 % 713-8) BASO % (test code = 0.4 % 706-2) GRAN MAT x10^3(ANC) 2.87 10*3/uL 1.99-6.95 (test code = 7545139603) IMM GRAN x10^3 (test <0.03 0-0.06 code = 2219914561) LYMPH x10^3 (test code 1.92 10*3/uL 1.09-3.23 = 731-0) MONO x10^3 (test code 0.55 10*3/uL 0.36-1.02 = 742-7) EOS x10^3 (test code = 0.27 10*3/uL 0.06-0.53 711-2) BASO x10^3 (test code <0.03 0.01-0.09 = 704-7) Lab Interpretation Abnormal (test code = 70571-7) [facility] TexasLactic Acid Whole [id number] 06:49:00 Test Item Value Reference Range Interpretation Comments LACTIC ACID (test code = 1.60 mmol/L 4058969172) [facility] TexasFERRITIN [id number] 06:45:00 Test Item Value Reference Range Interpretation Comments FERRITIN (test code = 20.4 ng/mL 18-464 6592228492) DIANE (test code = DIANE) Biotin has been reported to cause a negative bias, interpret results relative to patient's use of biotin. Lab Interpretation (test Normal code = 70745-4) [facility] TexasTHYROID STIMULATING [id number] 06:41:00 Test Item Value Reference Range Interpretation Comments TSH (test code = See_Comment [Automated message] 5399806446) The system [employer] generated this result transmitted ref erence range: 0.45 - 4 .70 mIU/L. The refe rence range was not u sed to interpret this result as normal/abnor mal. Lab Interpretation (test Normal code = 74130-1) [facility] TexasProtein Total [id number] 06:22:00 Test Item Value Reference Range Interpretation Comments T PROTEIN (test code = 0954002082) 7.0 g/dL 6.3-8.2 Lab Interpretation (test code = Normal 70612-4) [facility] TexasGlucose, [id number] 06:21:00 Test Item Value Reference Range Interpretation Comments GLUCOSE (test code = 6278889520) 220 mg/dL 70-110 H Lab Interpretation (test code = Abnormal 64950-0) [facility] TexasURIC [id number] 06:21:00 Test Item Value Reference Range Interpretation Comments URIC ACID (test code = 1953834221) 7.5 mg/dL 3.6-8 Lab Interpretation (test code = Normal 95697-4) [facility] TexasAMYLASE2020-09-15 06:21:00 Test Item Value Reference Range Interpretation Comments SERGIO (test code = 5192583192) 110 U/L 35-110 Lab Interpretation (test code = Normal 30969-1) [facility] TexasCOVID-19 (ID NOW RAPID TESTING)2020-02-04 02:30:00 Test Item Value Reference Range Interpretation Comments SARS-CoV-2 Rapid ID NOW Not Detected Not Detected (test code = 74182-2) DIANE (test code = DIANE) ID NOW COVID-19 Assay is an isothermal nucleic acid amplification test intended for the qualitative detection of nucleic acid from SARS-CoV-2 viral RNA in nasopharyngeal (FLOOR SUPERVISOR) specimens. It is used under Emergency Use [...] indicated. Lab Interpretation Normal (test code = 07002-2) [facility] TexasCT ANGIOGRAM ABDOMEN/[id number] 00:41:00 Impression: 1. Atherosclerotic disease, with no [...] hyperdense cyst.5. Prostatic enlargement.RL: 460End of Report [facility] [id number] 23:55:31Impression: 1. No prior studies for comparison.2. [...] separate report for CT of the abdomen. [facility], Radiant ResultsInft User - 02/03/2020 6:56 PM CDTOrdering Physician: ÓSCAR COYNEUNLEClinical history: Known aortic arch dissection. Follow-up.Comparison: None [...] CTA of the abdomen.RL: 460End of Report [facility] HospitalUrinalysis2020-09-14 23:09:00 Test Item Value Reference Range Interpretation Comments APPEARANCE (test code = Clear Clear 3505775116) COLOR (test code = Yellow Yellow 0059479444) PH (test code = 4.8-8.0 0283834333) SP GRAVITY (test code = 1.003-1.030 9999943794) GLU U QUAL (test code = 150 mg/dL Normal A 8735230334) BLOOD (test code = 1+ Negative A 3766550580) KETONES (test code = Negative Negative 2964873543) PROTEIN (test code = 100 mg/dL Negative A 2887-8) UROBILIN (test code = Normal Normal 1695414856) BILIRUBIN (test code = Negative Negative 3274309093) NITRITE (test code = Negative Negative 6360769224) LEUK PETER (test code = Negative Negative 2874270506) RBC/HPF (test code = See_Comment [Autom ated message] 3310584579) The system [employer] generated this result transmit ludmila reference range : 0 - 3 HPF. The refe rence range was not u sed to interpret th is result as normal/abnormal . WBC/HPF (test code = See_Comment [Autom ated message] 5994506157) The system [employer] generated this result transmit ludmila reference range : 0 - 5 HPF. The refe rence range was not u sed to interpret th is result as normal/abnormal . BACTERIA (test code = Negative Negative 7040844736) MUCOUS (test code = Slight Negative LPF A 1567646295) Lab Interpretation (test Abnormal code = 59720-7) [facility] (ALB, T.PRO, BILI T, BU/BC, ALT, AST, ALK PHOS)2020-02-03 23:04:00 Test Item Value Reference Range Interpretation Comments TOTAL BILI (test code = 4410652180) 0.4 mg/dL 0.1-1.1 BILI UNCON (test code = 0569062612) 0.5 mg/dL 0.1-1.1 BILI CONJ (test code = 1624684192) 0.0 mg/dL 0-0.3 T PROTEIN (test code = 5313412783) 7.4 g/dL 6.3-8.2 ALBUMIN (test code = 6938363729) 3.9 g/dL 3.5-5 ALK PHOS (test code = 5901496780) 127 U/L 34-122 H ALTv (test code = 1742-6) 15 U/L 5-50 AST(SGOT) (test code = 2603684893) 23 U/L 13-40 Lab Interpretation (test code = Abnormal 05600-5) [facility] TexasTroponin [id number] 23:00:00 Test Item Value Reference Range Interpretation Comments TROPONIN I (test 0.034 ng/mL See_Comment [Automated code = 6467961511) message] The system which generated this result [...] ? Lab Interpretation Normal (test code = 65279-2) [facility] TexasN-TERMINAL [id number] 22:57:00 Test Item Value Reference Range Interpretation Comments NT-proBNP (test code 2300 pg/mL See_Comment H [Autom ated = 5291782443) message] The system which generated this result transmitted reference range : <=125. The reference range was not used to interpret this result as normal/abnormal . DIANE (test code = DIANE) Biotin has been reported to cause a negative bias, interpret results relative to patient's use of biotin. Lab Interpretation Abnormal (test code = 71433-7) [facility] TexasaPTT2020-09-14 22:53:00 Test Item Value Reference Range Interpretation Comments APTT Patient (test See_Comment [Automat ed code = 3173-2) message] The system which generated this result transmitted reference range : 23 - 38 Seconds . The reference range was not used to interpr et this result as normal/abnormal . DIANE (test code = DIANE) The [facility] patient population mean normal value for aPTT is 30 seconds. Lab Interpretation Normal (test code = 95771-0) [facility] TexasProthrombin Time (PT) / [id number] 22:51:00 Test Item Value Reference Range Interpretation [...] tions. Lab Interpretation (test Abnormal code = 18908-6) [facility] (NA, K, CL, CO2, GLUCOSE, BUN, CREATININE, CA)2020-02-03 22:48:00 Test Item Value Reference Range Interpretation Comments NA (test code = 139 mmol/L 135-145 7740973271) K (test code = 3.8 mmol/L 3.5-5 6197195767) CL (test code = 105 mmol/L 98-108 1801488206) CO2 TOTAL (test code = 23 mmol/L 23-31 6269554006) AGAP (test code = 2-16 7663247466) BUN (test code = 13 mg/dL 7-23 0497191659) GLUCOSE (test code = 223 mg/dL 70-110 H 0045382720) CREATININE (test code = 0.95 mg/dL 0.6-1.25 5183669213) CALCIUM (test code = 9.1 mg/dL 8.6-10.6 5911256761) eGFR Calculation mL/min/1.73m2 (Non-) (test code = 1818760683) eGFR Calculation mL/min/1.73m2 () (test code = 5563528228) DIANE (test code = DIANE) Association of [...] tests). Lab Interpretation Abnormal (test code = 90007-7) [facility] TexasLipase [id number] 22:48:00 Test Item Value Reference Range Interpretation Comments LIPASE (test code = 7186383772) 180 U/L 0-220 Lab Interpretation (test code = Normal 79698-3) [facility] TexasCB with [id number] 22:37:00 Test Item Value Reference Range Interpretation Comments WBC (test code = See_Comment [Automated 0390-2) message] The sy stem which generated this result transmitted reference range : 4.20 - 10.70 10*3/?L. The reference range was not used to interpret this result as normal/abnormal . RBC (test code = See_Comment L [Automated 919-8) message] The sy stem which generated this [...] RDW-SD (test code = 43.7 fL 38.5-51.6 75984-3) RDW-CV (test code = 13.7 % 12.1-15.4 788-0) PLT (test code = See_Comment [Automated 777-3) message] The sy stem which generated this result transmitted reference range : 150 - 328 10*3/ ?L. The reference r batsheva was not used to interpret this result as normal/abnormal . MPV (test code = 9.7 fL 9.8-13 L 32156-8) NRBC/100 WBC (test See_Comment [Automat ed code = 5509873760) message] The system which generated this result transmitted reference range : 0.0 - 10.0 /100 WBCs. The refer ence range was not u sed to interpret th is result as normal/abnormal . NRBC x10^3 (test code <0.01 See_Comment [Auto mated = 0105160146) message] The s ystem which generated this result transmitted reference range : 10*3/?L. The reference range was not used to interpret this result as normal/abnormal . GRAN MAT (NEUT) % 55.9 % (test code = 770-8) IMM GRAN % (test code 0.40 % = 6933005646) LYMPH % (test code = 27.9 % 736-9) MONO % (test code = 11.4 % 5905-5) EOS % (test code = 4.0 % 713-8) BASO % (test code = 0.4 % 706-2) GRAN MAT x10^3(ANC) 3.86 10*3/uL 1.99-6.95 (test code = 7230747804) IMM GRAN x10^3 (test 0.03 10*3/uL 0-0.06 code = 9227049247) LYMPH x10^3 (test code 1.93 10*3/uL 1.09-3.23 = 731-0) MONO x10^3 (test code 0.79 10*3/uL 0.36-1.02 = 742-7) EOS x10^3 (test code = 0.28 10*3/uL 0.06-0.53 711-2) BASO x10^3 (test code 0.03 10*3/uL 0.01-0.09 = 704-7) Lab Interpretation Abnormal (test code = 09930-0) [facility] GLUCOSE (AUTOMATED)2019-11-21 16:59:00 Test Item Value Reference Range Interpretation Comments POCT GLU (test code = 6759355885) 88 mg/dL 70-110 Lab Interpretation (test code = Normal 56585-1) [facility] GLUCOSE (AUTOMATED)2019-11-21 16:38:00 Test Item Value Reference Range Interpretation Comments POCT GLU (test code = 8806304384) 58 mg/dL 70-110 L Lab Interpretation (test code = Abnormal 00718-8) [facility] GLUCOSE (AUTOMATED)2019-11-21 16:10:00 Test Item Value Reference Range Interpretation Comments POCT GLU (test code = 8402992893) 83 mg/dL 70-110 Lab Interpretation (test code = Normal 25775-1) [facility] TexasVancomycin Trough Level - Draw immediately prior to the 0745 dose, but, no more than 60 minutes [id number] 14:02:00 Test Item Value Reference Range Interpretation Comments VANCO TROUGH (test code 15.5 ug/mL 10-20 = 8568121586) DIANE (test code = DIANE) Toxic Range: ?>20 ug/mL 15-20 ug/mL is recommended for severe infection or when Vancomycin MILLICENT is greater than or equal to 2. Lab Interpretation (test Normal code = 14801-7) [facility] GLUCOSE (AUTOMATED)2019-11-21 12:58:00 Test Item Value Reference Range Interpretation Comments POCT GLU (test code = 6445075263) 223 mg/dL 70-110 H Lab Interpretation (test code = Abnormal 10296-7) [facility] GLUCOSE (AUTOMATED)2019-11-21 00:49:00 Test Item Value Reference Range Interpretation Comments POCT GLU (test code = 5120083529) 178 mg/dL 70-110 H Lab Interpretation (test code = Abnormal 96311-0) [facility] GLUCOSE (AUTOMATED)2019-11-20 21:36:00 Test Item Value Reference Range Interpretation Comments POCT GLU (test code = 4752161127) 132 mg/dL 70-110 H Lab Interpretation (test code = Abnormal 15266-4) [facility] TexasXR CHEST 1 [id number] 21:28:25HISTORY: PICC line placement. TECHNIQUE: Portable AP [...] PICC line appears to be in good position.[facility], Radiant Results Inft User - 11/20/2019 4:29 [...] PICC line appears to be in good position.[facility] GLUCOSE (AUTOMATED)2019-11-20 16:04:00 Test Item Value Reference Range Interpretation Comments POCT GLU (test code = 7333978819) 113 mg/dL 70-110 H Lab Interpretation (test code = Abnormal 75334-1) [facility] GLUCOSE (AUTOMATED)2019-11-20 12:36:00 Test Item Value Reference Range Interpretation Comments POCT GLU (test code = 2135537217) 167 mg/dL 70-110 H Lab Interpretation (test code = Abnormal 63597-7) [facility] METABOLIC PANEL (NA, K, CL, CO2, GLUCOSE, BUN, CREATININE, CA)2019-11-20 09:59:00 Test Item Value Reference Range Interpretation Comments NA (test code = 136 mmol/L 135-145 2967843809) K (test code = 3.5 mmol/L 3.5-5 1473049949) CL (test code = 106 mmol/L 98-108 8506760945) CO2 TOTAL (test code = 25 mmol/L 23-31 6448316040) AGAP (test code = 2-16 0089630131) BUN (test code = 6 mg/dL 7-23 L 2774722535) GLUCOSE (test code = 242 mg/dL 70-110 H 9475726833) CREATININE (test code = 0.51 mg/dL 0.6-1.25 L 0648064514) CALCIUM (test code = 8.2 mg/dL 8.6-10.6 L 9097814079) eGFR Calculation mL/min/1.73m2 (Non-) (test code = 6956623945) eGFR Calculation mL/min/1.73m2 () (test code = 4764773858) DIANE (test code = DIANE) Association of [...] tests). Lab Interpretation Abnormal (test code = 74431-2) [facility] WITH [id number] 09:13:00 Test Item Value Reference Range Interpretation Comments WBC (test code = See_Comment [Automated 1790-2) message] The sy stem which generated this result transmitted reference range : 4.20 - 10.70 10*3/?L. The reference range was not used to interpret this result as normal/abnormal . RBC (test code = See_Comment L [Automated 439-8) message] The sy stem which generated this [...] RDW-SD (test code = 42.2 fL 38.5-51.6 47586-3) RDW-CV (test code = 13.5 % 12.1-15.4 788-0) PLT (test code = See_Comment [Automated 777-3) message] The sy stem which generated this result transmitted reference range : 150 - 328 10*3/ ?L. The reference r batsheva was not used to interpret this result as normal/abnormal . MPV (test code = 10.2 fL 9.8-13 87330-6) NRBC/100 WBC (test See_Comment [Automat ed code = 8777284869) message] The system which generated this result transmitted reference range : 0.0 - 10.0 /100 WBCs. The refer ence range was not u sed to interpret th is result as normal/abnormal . NRBC x10^3 (test code <0.01 See_Comment [Auto mated = 4628734403) message] The s ystem which generated this result transmitted reference range : 10*3/?L. The reference range was not used to interpret this result as normal/abnormal . GRAN MAT (NEUT) % 46.8 % (test code = 770-8) IMM GRAN % (test code 0.40 % = 7211880589) LYMPH % (test code = 35.7 % 736-9) MONO % (test code = 11.0 % 5905-5) EOS % (test code = 5.5 % 713-8) BASO % (test code = 0.6 % 706-2) GRAN MAT x10^3(ANC) 2.21 10*3/uL 1.99-6.95 (test code = 6935703463) IMM GRAN x10^3 (test <0.03 0-0.06 code = 0835084228) LYMPH x10^3 (test code 1.69 10*3/uL 1.09-3.23 = 731-0) MONO x10^3 (test code 0.52 10*3/uL 0.36-1.02 = 742-7) EOS x10^3 (test code = 0.26 10*3/uL 0.06-0.53 711-2) BASO x10^3 (test code 0.03 10*3/uL 0.01-0.09 = 704-7) Lab Interpretation Abnormal (test code = 29904-4) [facility]2019-11-20 01:39:00 Test Item Value Reference Range Interpretation Comments POCT GLU (test code = 7571108885) 227 mg/dL 70-110 H Lab Interpretation (test code = Abnormal 42086-0) [facility] BONE WHOLE BODY 3 [id number] 21:43:00 HISTORY: Rule out osteomyelitis in left [...] with plainfilms of the right distal femur. [facility], Radiant Results Inft 11/19/2019 4:44 PM CDTHISTORY: Rule out osteomyelitisin [...] beginning with plainfilms of the right distal femur.[facility]2019-11-19 16:15:00 Test Item Value Reference Range Interpretation Comments POCT GLU (test code = 7662857254) 101 mg/dL 70-110 Lab Interpretation (test code = Normal 94351-0) [facility] - Draw no more than 60 minutes before the 0745 dose.2019-11-19 14:11:00 Test Item Value Reference Range Interpretation Comments VANCO TROUGH (test code 11.8 ug/mL 10-20 = 2212806077) DIANE (test code = DIANE) Toxic Range: ?>20 ug/mL 15-20 ug/mL is recommended for severe infection or when Vancomycin MILLICENT is greater than or equal to 2. Lab Interpretation (test Normal code = 92620-3) [facility] GLUCOSE (AUTOMATED)2019-11-19 12:52:00 Test Item Value Reference Range Interpretation Comments POCT GLU (test code = 6281202351) 146 mg/dL 70-110 H Lab Interpretation (test code = Abnormal 12430-8) [facility] GLUCOSE (AUTOMATED)2019-11-19 01:17:00 Test Item Value Reference Range Interpretation Comments POCT GLU (test code = 4649448179) 228 mg/dL 70-110 H Lab Interpretation (test code = Abnormal 97830-8) [facility] GLUCOSE (AUTOMATED)2019-11-18 20:46:00 Test Item Value Reference Range Interpretation Comments POCT GLU (test code = 3485026806) 82 mg/dL 70-110 Lab Interpretation (test code = Normal 71989-1) [facility] GLUCOSE (AUTOMATED)2019-11-18 16:27:00 Test Item Value Reference Range Interpretation Comments POCT GLU (test code = 1909352544) 115 mg/dL 70-110 H Lab Interpretation (test code = Abnormal 46294-1) [facility] GLUCOSE (AUTOMATED)2019-11-18 12:29:00 Test Item Value Reference Range Interpretation Comments POCT GLU (test code = 3684668016) 137 mg/dL 70-110 H Lab Interpretation (test code = Abnormal 16995-2) [facility] ABDOMEN PELVIS W [id number] 02:28:32 1.5 cm metallic structure, possible ingested [...] reviewed this study and agree with the abovereport.[facility] GLUCOSE (AUTOMATED)2019-11-18 01:40:00 Test Item Value Reference Range Interpretation Comments POCT GLU (test code = 1360845833) 102 mg/dL 70-110 Lab Interpretation (test code = Normal 51961-7) [facility] GLUCOSE (AUTOMATED)2019-11-17 21:14:00 Test Item Value Reference Range Interpretation Comments POCT GLU (test code = 9061969542) 171 mg/dL 70-110 H Lab Interpretation (test code = Abnormal 96047-2) [facility] GLUCOSE (AUTOMATED)2019-11-17 16:18:00 Test Item Value Reference Range Interpretation Comments POCT GLU (test code = 2662885437) 131 mg/dL 70-110 H Lab Interpretation (test code = Abnormal 65902-2) [facility] FOOT LEFT W [id number] 15:36:38 Soft tissue swelling and heel pad [...] reviewed this study and agree with the abovereport.[facility] GLUCOSE (AUTOMATED)2019-11-17 12:32:00 Test Item Value Reference Range Interpretation Comments POCT GLU (test code = 9806388915) 120 mg/dL 70-110 H Lab Interpretation (test code = Abnormal 54297-7) [facility] GLUCOSE (AUTOMATED)2019-11-17 04:19:00 Test Item Value Reference Range Interpretation Comments POCT GLU (test code = 8556696385) 234 mg/dL 70-110 H Lab Interpretation (test code = Abnormal 12573-5) [facility] TexasLautic Acid Whole [id number] 03:08:00 Test Item Value Reference Range Interpretation Comments LACTIC ACID (test code = 2.00 mmol/L 0.3-2.6 9488865858) Lab Interpretation (test code = Normal 24863-5) [facility] TexasGlycosylated Hemoglobin (A1C)2019-11-17 03:01:00 Test Item Value Reference [...] Indicated Lab Interpretation Abnormal (test code = 31217-3) [facility]SE [facility])2019-11-17 01:10:00 Test Item Value Reference Range Interpretation Comments POCT GLU (test code = 7927707536) 334 mg/dL 70-110 H Lab Interpretation (test code = Abnormal 53495-6) [facility] TexasXR ANKLE 3+ VW [id number] 23:59:27 Heel pad ulceration with no radiograph findings of osteomyelitis. I, Froy Friedman MD., have reviewed this [...] pad ulceration with no radiograph findings of osteomyelitis.I, Froy Friedman MD., have reviewed this study and agree with the abovereport.[facility] TexasCOVID-19 (ID NOW RAPID TESTING)2019-11-16 23:10:00 Test Item Value Reference Range Interpretation Comments SARS-CoV-2 Rapid ID NOW Not Detected Not Detected (test code = 00469-5) DIANE (test code = DIANE) ID NOW COVID-19 Assay is an isothermal nucleic acid amplification test intended for the qualitative detection of nucleic acid from SARS-CoV-2 viral RNA in nasopharyngeal (FLOOR SUPERVISOR) specimens. It is used under Emergency Use [...] indicated. Lab Interpretation Normal (test code = 24544-2) [facility] Metabolic Panel (NA, K, CL, CO2, GLUCOSE, BUN, CREATININE, CA)2019-11-16 22:50:00 Test Item Value Reference Range Interpretation Comments NA (test code = 137 mmol/L 135-145 7208228707) K (test code = 4.1 mmol/L 3.5-5 5864478020) CL (test code = 101 mmol/L 98-108 4113357636) CO2 TOTAL (test code = 23 mmol/L 23-31 0086439047) AGAP (test code = 2-16 7764632243) BUN (test code = 12 mg/dL 7-23 7343917790) GLUCOSE (test code = 479 mg/dL 70-110 HH 2119975750) CREATININE (test code = 0.78 mg/dL 0.6-1.25 0752858111) CALCIUM (test code = 9.4 mg/dL 8.6-10.6 3333354576) eGFR Calculation mL/min/1.73m2 (Non-) (test code = 7875387426) eGFR Calculation mL/min/1.73m2 () (test code = 0461490141) DIANE (test code = DIANE) Association of [...] tests). Lab Interpretation Abnormal (test code = 51178-6) [facility] WITH [id number] 22:33:00 Test Item Value Reference Range Interpretation Comments WBC (test code = See_Comment [Automated 4790-2) message] The sy stem which generated this result transmitted reference range : 4.20 - 10.70 10*3/?L. The reference range was not used to interpret this result as normal/abnormal . RBC (test code = See_Comment L [Automated 869-8) message] The sy stem which generated this [...] RDW-SD (test code = 40.9 fL 38.5-51.6 35502-6) RDW-CV (test code = 13.1 % 12.1-15.4 788-0) PLT (test code = See_Comment [Automated 777-3) message] The sy stem which generated this result transmitted reference range : 150 - 328 10*3/ ?L. The reference r batsheva was not used to interpret this result as normal/abnormal . MPV (test code = 9.9 fL 9.8-13 58474-9) NRBC/100 WBC (test See_Comment [Automat ed code = 2693146932) message] The system which generated this result transmitted reference range : 0.0 - 10.0 /100 WBCs. The refer ence range was not u sed to interpret th is result as normal/abnormal . NRBC x10^3 (test code <0.01 See_Comment [Auto mated = 3526260305) message] The s ystem which generated this result transmitted reference range : 10*3/?L. The reference range was not used to interpret this result as normal/abnormal . GRAN MAT (NEUT) % 62.2 % (test code = 770-8) IMM GRAN % (test code 0.40 % = 2705285840) LYMPH % (test code = 28.0 % 736-9) MONO % (test code = 6.9 % 5905-5) EOS % (test code = 2.2 % 713-8) BASO % (test code = 0.3 % 706-2) GRAN MAT x10^3(ANC) 4.30 10*3/uL 1.99-6.95 (test code = 4700536247) IMM GRAN x10^3 (test 0.03 10*3/uL 0-0.06 code = 4461950323) LYMPH x10^3 (test code 1.94 10*3/uL 1.09-3.23 = 731-0) MONO x10^3 (test code 0.48 10*3/uL 0.36-1.02 = 742-7) EOS x10^3 (test code = 0.15 10*3/uL 0.06-0.53 711-2) BASO x10^3 (test code <0.03 0.01-0.09 = 704-7) Lab Interpretation Abnormal (test code = 88392-9) [facility] TexasLactic Acid Whole [id number] 22:19:00 Test Item Value Reference Range Interpretation Comments LACTIC ACID (test code = 3.67 mmol/L 0.3-2.6 0442543430) [facility] TexasCT ABDOMEN PELVIS W [id number] 03:22:58 1. ?Mild mural thickening and mucosal [...] reviewed this study and agree with the abovereport.[facility] TexasCORONAVIRUS COVID-19 [id number] 02:08:00 Test Item Value Reference Range Interpretation Comments SARS-CoV-2 (test code = Not Detected Not Detected 72836-4) DIANE (test code = DIANE) ID NOW COVID-19 Assay is an isothermal nucleic acid amplification test intended for the qualitative detection of nucleic acid from SARS-CoV-2 viral RNA in nasopharyngeal (FLOOR SUPERVISOR) specimens. It is used under Emergency Use [...] indicated. Lab Interpretation Normal (test code = 22416-8) [facility] TexasComplete Metabolic [id number] 02:04:00 Test Item Value Reference Range Interpretation Comments NA (test code = 138 mmol/L 135-145 6718597878) K (test code = 3.4 mmol/L 3.5-5 L 5870792245) CL (test code = 104 mmol/L 98-108 3118952040) CO2 TOTAL (test code = 20 mmol/L 23-31 L 8801850286) AGAP (test code = 2-16 5275702606) BUN (test code = 11 mg/dL 7-23 4056705097) GLUCOSE (test code = 282 mg/dL 70-110 H 1631914577) CREATININE (test code = 1.00 mg/dL 0.6-1.25 2178710214) TOTAL BILI (test code = 0.5 mg/dL 0.1-1.0 8349729878) CALCIUM (test code = 9.6 mg/dL 8.6-10.6 0739429864) T PROTEIN (test code = 7.7 g/dL 6.3-8.2 7613286215) ALBUMIN (test code = 4.4 g/dL 3.5-5 9670462603) ALK PHOS (test code = 121 U/L 34-122 7435406676) ALTv (test code = 15 U/L 5-50 1742-6) AST(SGOT) (test code = 22 U/L 13-40 9824225044) eGFR Calculation mL/min/1.73m2 (Non-) (test code = 0887747031) eGFR Calculation mL/min/1.73m2 () (test code = 8005221759) DIANE (test code = DIANE) Association of [...] tests). Lab Interpretation Abnormal (test code = 42907-2) [facility] TexasLipase, [id number] 02:04:00 Test Item Value Reference Range Interpretation Comments LIPASE (test code = 6714294965) 157 U/L 0-220 Lab Interpretation (test code = Normal 27100-2) [facility]CB WITH [id number] 01:53:00 Test Item Value Reference Range Interpretation Comments WBC (test code = See_Comment [Automated 8390-2) message] The sy stem which generated this result transmitted reference range : 4.20 - 10.70 10*3/?L. The reference range was not used to interpret this result as normal/abnormal . RBC (test code = See_Comment L [Automated 887-8) message] The sy stem which generated this [...] RDW-SD (test code = 38.7 fL 38.5-51.6 23918-6) RDW-CV (test code = 12.4 % 12.1-15.4 788-0) PLT (test code = See_Comment [Automated 777-3) message] The sy stem which generated this result transmitted reference range : 150 - 328 10*3/ ?L. The reference r batsheva was not used to interpret this result as normal/abnormal . MPV (test code = 9.8 fL 9.8-13 77388-8) NRBC/100 WBC (test See_Comment [Automat ed code = 2918513203) message] The system which generated this result transmitted reference range : 0.0 - 10.0 /100 WBCs. The refer ence range was not u sed to interpret th is result as normal/abnormal . NRBC x10^3 (test code <0.01 See_Comment [Auto mated = 0274882238) message] The s ystem which generated this result transmitted reference range : 10*3/?L. The reference range was not used to interpret this result as normal/abnormal . GRAN MAT (NEUT) % 62.2 % (test code = 770-8) IMM GRAN % (test code 0.50 % = 2419863269) LYMPH % (test code = 27.3 % 736-9) MONO % (test code = 7.4 % 5905-5) EOS % (test code = 2.2 % 713-8) BASO % (test code = 0.4 % 706-2) GRAN MAT x10^3(ANC) 5.12 10*3/uL 1.99-6.95 (test code = 4099010719) IMM GRAN x10^3 (test 0.04 10*3/uL 0-0.06 code = 1081896151) LYMPH x10^3 (test code 2.24 10*3/uL 1.09-3.23 = 731-0) MONO x10^3 (test code 0.61 10*3/uL 0.36-1.02 = 742-7) EOS x10^3 (test code = 0.18 10*3/uL 0.06-0.53 711-2) BASO x10^3 (test code 0.03 10*3/uL 0.01-0.09 = 704-7) Lab Interpretation Abnormal (test code = 58409-2) [facility]PO[facility]2019-08-15 19:47:00 Test Item Value Reference Range Interpretation Comments POCT GLU (test code = 8818317661) 294 mg/dL 70-110 H Lab Interpretation (test code = Abnormal 98529-1) [facility] ABDOMEN PELVIS W [id number] 19:14:56CT Abdomen and Pelvis with intravenous contrast. [...] Liver, Gallbladder and Spleen: S/P cholecystectomy.Liver is gokkcgcgyilel21.9 cm and spleen is 10 x 5 [...] and food material. Please seeadditional details above. [facility], Radiant Results Inft User - 08/15/2019 2:15 [...] Gallbladder and Spleen: S/P cholecystectomy. Liver is rgardgyqoeqdf96.9 cm and spleen is 10 x 5 [...] fluid and food material. Please seeadditional details above.[facility] TexasJorge [id number] 18:20:00 Test Item Value Reference Range Interpretation Comments TROPONIN I (test 0.019 ng/mL See_Comment [Automated code = 1865934060) message] The system which generated this result [...] ? Lab Interpretation Normal (test code = 26688-2) [facility] [place] [place]ST 2 [id number] 18:10:52HISTORY: Cough and upper abdominal pain. TECHNIQUE: [...] CONCLUSIONS: No signs of acute cardiopulmonary disease .[facility], Radiant Results Inft User - 08/15/2019 1:11 [...] spines.CONCLUSIONS: No signs of acute cardiopulmonary disease. [facility] [place] FO[facility] 3+ VW [id number] 18:09:41HISTORY: Diabetic foot ulcer. FINDINGS: AP, lateral, [...] film evidence ofosteomyelitis in the foot bones. [facility], Radiant Results Inft User - 08/15/2019 1:10 [...] plain film evidence ofosteomyelitis in the foot bones.[facility] (NA, K, CL, CO2, GLUCOSE, BUN, CREATININE, CA)2019-08-15 18:09:00 Test Item Value Reference Range Interpretation Comments NA (test code = 137 mmol/L 135-145 4791214714) K (test code = 4.1 mmol/L 3.5-5 9175029426) CL (test code = 101 mmol/L 98-108 5918694917) CO2 TOTAL (test code = 25 mmol/L 23-31 6414973851) AGAP (test code = 2-16 4323502845) BUN (test code = 16 mg/dL 7-23 4858713492) GLUCOSE (test code = 430 mg/dL 70-110 H 7366110710) CREATININE (test code = 0.64 mg/dL 0.6-1.25 9034042579) CALCIUM (test code = 10.0 mg/dL 8.6-10.6 5027851849) eGFR Calculation mL/min/1.73m2 (Non-) (test code = 8199458193) eGFR Calculation mL/min/1.73m2 () (test code = 9615012014) DIANE (test code = DIANE) Association of [...] tests). Lab Interpretation Abnormal (test code = 09078-7) [facility] (ALB, T.PRO, BILI T, BU/BC, ALT, AST, ALK PHOS)2019-08-15 18:09:00 Test Item Value Reference Range Interpretation Comments TOTAL BILI (test code = 2400219148) 0.6 mg/dL 0.1-1.1 BILI UNCON (test code = 9925244984) 0.7 mg/dL 0.1-1.1 BILI CONJ (test code = 8579536535) 0.0 mg/dL 0-0.3 T PROTEIN (test code = 4378288217) 7.9 g/dL 6.3-8.2 ALBUMIN (test code = 1378897397) 4.5 g/dL 3.5-5 ALK PHOS (test code = 3545057157) 190 U/L 34-122 H ALTv (test code = 1742-6) 36 U/L 5-50 AST(SGOT) (test code = 1688531901) 25 U/L 13-40 Lab Interpretation (test code = Abnormal 76385-8) [facility] TexasLipase [id number] 18:09:00 Test Item Value Reference Range Interpretation Comments LIPASE (test code = 1791927296) 262 U/L 0-220 H Lab Interpretation (test code = Abnormal 16117-9) [facility] TexasUrinalysis2020-03-26 18:06:00 Test Item Value Reference Range Interpretation Comments APPEARANCE (test code = Clear Clear 1071028040) COLOR (test code = Yellow Yellow 9546370097) PH (test code = 4.8-8.0 1954291972) SP GRAVITY (test code = 1.003-1.030 H 7689615863) GLU U QUAL (test code = 500 mg/dL Normal A 4052210356) BLOOD (test code = Negative Negative 1074488026) KETONES (test code = Negative Negative 2256087642) PROTEIN (test code = Negative Negative 2887-8) UROBILIN (test code = Normal Normal 1901763807) BILIRUBIN (test code = Negative Negative 9009375253) NITRITE (test code = Negative Negative 6933497027) LEUK PETER (test code = Negative Negative 8873190634) RBC/HPF (test code = See_Comment [Autom ated message] 4306926552) The system [employer] generated this result transmit ludmila reference range : 0 - 3 HPF. The refe rence range was not u sed to interpret th is result as normal/abnormal . WBC/HPF (test code = <1 See_Comment [Autom ated message] 6875663163) The system [employer] generated this result transmit ludmila reference range : 0 - 5 HPF. The refe rence range was not u sed to interpret th is result as normal/abnormal . BACTERIA (test code = Negative Negative 3362580188) Lab Interpretation (test Abnormal code = 66583-2) [facility] TexasProthrombin Time (PT) / [id number] 18:05:00 Test Item Value Reference Range Interpretation Comments PROTIME PATIENT (test See_Comment [Auto mated message] code = 5964-2) The system [employer] [place] generated this result transmitted ref erence range: 12.0 - 1 4.7 Seconds. The re ference range was not u sed to interpret this result as normal/abnor mal. INR (test code = 6301-6) Nor mal INR <1.1; Warfarin Therap eutic range 2.0 to 3. 0 or 2.5 to 3.5, dep ending upon the indica tions. Lab Interpretation (test Normal code = 53892-1) [facility]CB WITH [id number] 17:58:00 Test Item Value Reference Range Interpretation [...] RDW-SD (test code = 41.4 fL 38.5-51.6 47119-5) RDW-CV (test code = 13.0 % 12.1-15.4 788-0) PLT (test code = See_Comment [Automated 777-3) message] The sy stem which generated this result transmitted reference range : 150 - 328 10*3/ ?L. The reference r batsheva was not used to interpret this result as normal/abnormal . MPV (test code = 9.5 fL 9.8-13 L 24112-3) NRBC/100 WBC (test See_Comment [Automat ed code = 6231931055) message] The system which generated this result transmitted reference range : 0.0 - 10.0 /100 WBCs. The refer ence range was not u sed to interpret th is result as normal/abnormal . NRBC x10^3 (test code <0.01 See_Comment [Auto mated = 2005720796) message] The s ystem which generated this result transmitted reference range : 10*3/?L. The reference range was not used to interpret this result as normal/abnormal . GRAN MAT (NEUT) % 45.3 % (test code = 770-8) IMM GRAN % (test code 0.40 % = 4715725601) LYMPH % (test code = 41.5 % 736-9) MONO % (test code = 8.2 % 5905-5) EOS % (test code = 4.2 % 713-8) BASO % (test code = 0.4 % 706-2) GRAN MAT x10^3(ANC) 3.10 10*3/uL 1.99-6.95 (test code = 1977198046) IMM GRAN x10^3 (test 0.03 10*3/uL 0-0.06 code = 1195155261) LYMPH x10^3 (test code 2.85 10*3/uL 1.09-3.23 = 731-0) MONO x10^3 (test code 0.56 10*3/uL 0.36-1.02 = 742-7) EOS x10^3 (test code = 0.29 10*3/uL 0.06-0.53 711-2) BASO x10^3 (test code 0.03 10*3/uL 0.01-0.09 = 704-7) Lab Interpretation Abnormal (test code = 48783-1) [facility] GLUCOSE (AUTOMATED)2019-08-09 16:49:00 Test Item Value Reference Range Interpretation Comments POCT GLU (test code = 0227356890) 203 mg/dL 70-110 H Lab Interpretation (test code = Abnormal 64125-6) [facility] TexasVITAMIN B12, [id number] 16:00:00 Test Item Value Reference Range Interpretation Comments VIT B12 (test code = 859 pg/mL 240-930 1247097041) DIANE (test code = DIANE) Biotin has been reported to cause a positive bias, interpret results relative to patient's use of biotin. Lab Interpretation (test Normal code = 92328-5) [facility] GLUCOSE (AUTOMATED)2019-08-09 13:39:00 Test Item Value Reference Range Interpretation Comments POCT GLU (test code = 1089548212) 95 mg/dL 70-110 Lab Interpretation (test code = Normal 05097-1) [facility] TexasIRON [id number] 10:56:00 Test Item Value Reference Range Interpretation Comments IRON (test code = 4018548053) 75 ug/dL 50-160 TIBC (test code = 7390069472) 308 ug/dL 250-410 % FE SAT (test code = 6892376248) 24 % 20-50 Lab Interpretation (test code = Normal 13983-2) [facility] METABOLIC PANEL (NA, K, CL, CO2, GLUCOSE, BUN, CREATININE, CA)2019-08-09 10:47:00 Test Item Value Reference Range Interpretation Comments NA (test code = 138 mmol/L 135-145 1863717709) K (test code = 3.6 mmol/L 3.5-5 1840130418) CL (test code = 106 mmol/L 98-108 0753360771) CO2 TOTAL (test code = 26 mmol/L 23-31 2737385051) AGAP (test code = 2-16 5476922352) BUN (test code = 10 mg/dL 7-23 4495453515) GLUCOSE (test code = 62 mg/dL 70-110 L 2110213750) CREATININE (test code = 0.45 mg/dL 0.6-1.25 L 9170963310) CALCIUM (test code = 8.6 mg/dL 8.6-10.6 3869344500) eGFR Calculation mL/min/1.73m2 (Non-) (test code = 3357874779) eGFR Calculation mL/min/1.73m2 () (test code = 4177772846) DIANE (test code = DIANE) Association of [...] tests). Lab Interpretation Abnormal (test code = 90455-3) [facility] WITH [id number] 10:20:00 Test Item Value Reference Range Interpretation [...] RDW-SD (test code = 42.5 fL 38.5-51.6 59632-4) RDW-CV (test code = 13.4 % 12.1-15.4 788-0) PLT (test code = See_Comment H [Automated 777-3) message] The sy stem which generated this result transmitted reference range : 150 - 328 10*3/ ?L. The reference r batsheva was not used to interpret this result as normal/abnormal . MPV (test code = 9.5 fL 9.8-13 L 98567-6) NRBC/100 WBC (test See_Comment [Automat ed code = 9430164773) message] The system which generated this result transmitted reference range : 0.0 - 10.0 /100 WBCs. The refer ence range was not u sed to interpret th is result as normal/abnormal . NRBC x10^3 (test code <0.01 See_Comment [Auto mated = 5060063030) message] The s ystem which generated this result transmitted reference range : 10*3/?L. The reference range was not used to interpret this result as normal/abnormal . GRAN MAT (NEUT) % 54.6 % (test code = 770-8) IMM GRAN % (test code 0.50 % = 1760375399) LYMPH % (test code = 30.3 % 736-9) MONO % (test code = 8.3 % 5905-5) EOS % (test code = 5.8 % 713-8) BASO % (test code = 0.5 % 706-2) GRAN MAT x10^3(ANC) 3.51 10*3/uL 1.99-6.95 (test code = 9739939466) IMM GRAN x10^3 (test 0.03 10*3/uL 0-0.06 code = 1520877182) LYMPH x10^3 (test code 1.94 10*3/uL 1.09-3.23 = 731-0) MONO x10^3 (test code 0.53 10*3/uL 0.36-1.02 = 742-7) EOS x10^3 (test code = 0.37 10*3/uL 0.06-0.53 711-2) BASO x10^3 (test code 0.03 10*3/uL 0.01-0.09 = 704-7) Lab Interpretation Abnormal (test code = 26475-1) [facility] TexasFOLATE2020-03-20 05:38:00 Test Item Value Reference Range Interpretation Comments FOLATE SER (test code = 6.8 ng/mL 3-20 Biot in has been 1244702478) reported to cau se a positive bias, interpret resul ts relative to patient's use o f biotin. Lab Interpretation (test Normal code = 42903-1) [facility] GLUCOSE (AUTOMATED)2019-08-09 00:59:00 Test Item Value Reference Range Interpretation Comments POCT GLU (test code = 3748666640) 169 mg/dL 70-110 H Lab Interpretation (test code = Abnormal 34395-6) [facility] TexasFERRITIN [id number] 22:54:00 Test Item Value Reference Range Interpretation Comments FERRITIN (test code = 120.0 ng/mL 18-464 5620937140) DIANE (test code = DIAEN) Biotin has been reported to cause a negative bias, interpret results relative to patient's use of biotin. Lab Interpretation (test Normal code = 61422-1) [facility] GLUCOSE (AUTOMATED)2019-08-08 22:32:00 Test Item Value Reference Range Interpretation Comments POCT GLU (test code = 5593965186) 122 mg/dL 70-110 H Lab Interpretation (test code = Abnormal 42295-2) [facility] GLUCOSE (AUTOMATED)2019-08-08 17:10:00 Test Item Value Reference Range Interpretation Comments POCT GLU (test code = 4973549756) 132 mg/dL 70-110 H Lab Interpretation (test code = Abnormal 34609-2) [facility] [place]FL UPPER GI [id number] 16:42:01HISTORY: Upper abdominal pain and weight loss. [...] in the esophagus, otherwise normal upper GI series.[facility], Radiant Results Inft User - 08/08/2019 11:43 [...] in the esophagus, otherwise normal upper GI series.[facility] [place]SE (AUT[facility]ATED)2019-08-08 13:06:00 Test Item Value Reference Range Interpretation Comments POCT GLU (test code = 9962368249) 118 mg/dL 70-110 H Lab Interpretation (test code = Abnormal 18488-6) [facility]Basic Metabolic Panel (NA, K, CL, CO2, GLUCOSE, BUN, CREATININE, CA)2019-08-08 11:00:00 Test Item Value Reference Range Interpretation Comments NA (test code = 137 mmol/L 135-145 0285207317) K (test code = 3.7 mmol/L 3.5-5 8099917951) CL (test code = 105 mmol/L 98-108 6305101007) CO2 TOTAL (test code = 25 mmol/L 23-31 3119374196) AGAP (test code = 2-16 1485936231) BUN (test code = 13 mg/dL 7-23 1034481266) GLUCOSE (test code = 123 mg/dL 70-110 H 9736914500) CREATININE (test code = 0.44 mg/dL 0.6-1.25 L 2122771570) CALCIUM (test code = 8.6 mg/dL 8.6-10.6 1944101354) eGFR Calculation mL/min/1.73m2 (Non-) (test code = 9214892663) eGFR Calculation mL/min/1.73m2 () (test code = 4894387993) DIANE (test code = DIANE) Association of [...] tests). Lab Interpretation Abnormal (test code = 92390-4) [facility] WITH [id number] 10:08:00 Test Item Value Reference Range Interpretation Comments WBC (test code = See_Comment [Automated 2256-2) message] The sy stem which generated this result transmitted reference range : 4.20 - 10.70 10*3/?L. The reference range was not used to interpret this result as normal/abnormal . RBC (test code = See_Comment L [Automated 370-8) message] The sy stem which generated this [...] RDW-SD (test code = 43.1 fL 38.5-51.6 61189-3) RDW-CV (test code = 13.2 % 12.1-15.4 788-0) PLT (test code = See_Comment H [Automated 777-3) message] The sy stem which generated this result transmitted reference range : 150 - 328 10*3/ ?L. The reference r batsheva was not used to interpret this result as normal/abnormal . MPV (test code = 9.7 fL 9.8-13 L 86717-7) NRBC/100 WBC (test See_Comment [Automat ed code = 6660304562) message] The system which generated this result transmitted reference range : 0.0 - 10.0 /100 WBCs. The refer ence range was not u sed to interpret th is result as normal/abnormal . NRBC x10^3 (test code <0.01 See_Comment [Auto mated = 5778257906) message] The s ystem which generated this result transmitted reference range : 10*3/?L. The reference range was not used to interpret this result as normal/abnormal . GRAN MAT (NEUT) % 59.0 % (test code = 770-8) IMM GRAN % (test code 0.50 % = 5471280398) LYMPH % (test code = 26.5 % 736-9) MONO % (test code = 6.9 % 5905-5) EOS % (test code = 6.6 % 713-8) BASO % (test code = 0.5 % 706-2) GRAN MAT x10^3(ANC) 3.83 10*3/uL 1.99-6.95 (test code = 8820107982) IMM GRAN x10^3 (test 0.03 10*3/uL 0-0.06 code = 5515406410) LYMPH x10^3 (test code 1.72 10*3/uL 1.09-3.23 = 731-0) MONO x10^3 (test code 0.45 10*3/uL 0.36-1.02 = 742-7) EOS x10^3 (test code = 0.43 10*3/uL 0.06-0.53 711-2) BASO x10^3 (test code 0.03 10*3/uL 0.01-0.09 = 704-7) Lab Interpretation Abnormal (test code = 34108-8) [facility] GLUCOSE (AUTOMATED)2019-08-08 01:43:00 Test Item Value Reference Range Interpretation Comments POCT GLU (test code = 6203515210) 74 mg/dL 70-110 Lab Interpretation (test code = Normal 01571-7) [facility] GLUCOSE (AUTOMATED)2019-08-07 21:25:00 Test Item Value Reference Range Interpretation Comments POCT GLU (test code = 7206326103) 112 mg/dL 70-110 H Lab Interpretation (test code = Abnormal 90965-6) [facility] TexasTroponin [id number] 16:36:00 Test Item Value Reference Range Interpretation Comments TROPONIN I (test 0.014 ng/mL See_Comment [Automated code = 3134381289) message] The system which generated this result [...] ? Lab Interpretation Normal (test code = 20416-3) [facility] GLUCOSE (AUTOMATED)2019-08-07 13:39:00 Test Item Value Reference Range Interpretation Comments POCT GLU (test code = 8748577247) 240 mg/dL 70-110 H Lab Interpretation (test code = Abnormal 23629-9) [facility] GLUCOSE (AUTOMATED)2019-08-07 13:08:00 Test Item Value Reference Range Interpretation Comments POCT GLU (test code = 3100378272) 150 mg/dL 70-110 H Lab Interpretation (test code = Abnormal 80027-3) [facility] TexasTroponin [id number] 10:00:00 Test Item Value Reference Range Interpretation Comments TROPONIN I (test 0.014 ng/mL See_Comment [Automated code = 4419284963) message] The system which generated this result [...] ? Lab Interpretation Normal (test code = 60807-9) [facility] TexasN-TERMINAL [id number] 09:57:00 Test Item Value Reference Range Interpretation Comments NT-proBNP (test code 265 pg/mL See_Comment H [Autom ated = 5021374238) message] The system which generated this result transmitted reference range : <=125. The reference range was not used to interpret this result as normal/abnormal . DIANE (test code = DIANE) Biotin has been reported to cause a negative bias, interpret results relative to patient's use of biotin. Lab Interpretation Abnormal (test code = 98075-4) [facility] Metabolic Panel (NA, K, CL, CO2, GLUCOSE, BUN, CREATININE, CA)2019-08-07 09:53:00 Test Item Value Reference Range Interpretation Comments NA (test code = 140 mmol/L 135-145 2532416220) K (test code = 3.6 mmol/L 3.5-5 6422402636) CL (test code = 104 mmol/L 98-108 0429959917) CO2 TOTAL (test code = 27 mmol/L 23-31 1306120566) AGAP (test code = 2-16 6244089136) BUN (test code = 16 mg/dL 7-23 6036527183) GLUCOSE (test code = 135 mg/dL 70-110 H 3496102017) CREATININE (test code = 0.51 mg/dL 0.6-1.25 L 7530988010) CALCIUM (test code = 9.2 mg/dL 8.6-10.6 7616544173) eGFR Calculation mL/min/1.73m2 (Non-) (test code = 1651053406) eGFR Calculation mL/min/1.73m2 () (test code = 0144677968) DIANE (test code = DIANE) Association of [...] tests). Lab Interpretation Abnormal (test code = 18454-4) [facility] [place]MAGNESIUM2020-03-18 09:53:00 Test Item Value Reference Range Interpretation Comments MAGNESIUM (test code = 7998010288) 2.1 mg/dL 1.7-2.4 Lab Interpretation (test code = Normal 36744-4) [facility] WITH [id number] 09:25:00 Test Item Value Reference Range Interpretation Comments WBC (test code = See_Comment [Automated 4090-2) message] The sy stem which generated this result transmitted reference range : 4.20 - 10.70 10*3/?L. The reference range was not used to interpret this result as normal/abnormal . RBC (test code = See_Comment L [Automated 189-8) message] The sy stem which generated this [...] RDW-SD (test code = 42.5 fL 38.5-51.6 52826-5) RDW-CV (test code = 13.1 % 12.1-15.4 788-0) PLT (test code = See_Comment H [Automated 777-3) message] The sy stem which generated this result transmitted reference range : 150 - 328 10*3/ ?L. The reference r batsheva was not used to interpret this result as normal/abnormal . MPV (test code = 9.4 fL 9.8-13 L 42944-1) NRBC/100 WBC (test See_Comment [Automat ed code = 2289014711) message] The system which generated this result transmitted reference range : 0.0 - 10.0 /100 WBCs. The refer ence range was not u sed to interpret th is result as normal/abnormal . NRBC x10^3 (test code <0.01 See_Comment [Auto mated = 6923970765) message] The s ystem which generated this result transmitted reference range : 10*3/?L. The reference range was not used to interpret this result as normal/abnormal . GRAN MAT (NEUT) % 49.6 % (test code = 770-8) IMM GRAN % (test code 1.00 % = 1285504547) LYMPH % (test code = 35.6 % 736-9) MONO % (test code = 10.0 % 5905-5) EOS % (test code = 3.5 % 713-8) BASO % (test code = 0.3 % 706-2) GRAN MAT x10^3(ANC) 3.07 10*3/uL 1.99-6.95 (test code = 5480840316) IMM GRAN x10^3 (test 0.06 10*3/uL 0-0.06 code = 4406381951) LYMPH x10^3 (test code 2.21 10*3/uL 1.09-3.23 = 731-0) MONO x10^3 (test code 0.62 10*3/uL 0.36-1.02 = 742-7) EOS x10^3 (test code = 0.22 10*3/uL 0.06-0.53 711-2) BASO x10^3 (test code <0.03 0.01-0.09 = 704-7) Lab Interpretation Abnormal (test code = 76210-6) [facility] TexasGLYCOSYLATED HEMOGLOBIN (A1C)2019-08-07 04:47:00 Test Item Value Reference [...] Indicated Lab Interpretation Abnormal (test code = 47492-6) [facility] TexasTroponin [id number] 04:11:00 Test Item Value Reference Range Interpretation Comments TROPONIN I (test 0.017 ng/mL See_Comment [Automated code = 1627890855) message] The system which generated this result [...] ? Lab Interpretation Normal (test code = 66294-0) [facility] TexasUS ABDOMEN [id number] 03:38:19 A 2.7 cm right simple renal [...] The IVC is seen entering the liver. [facility], Radiant Results Inft User - 08/06/2019 10:39 [...] of the abdomen.Preliminary Report Dictated by Resident: Jason Lock, Sekou Yu MD., have reviewed this study and agree with the abovereport.[facility]POCT GLUCOSE (AUT[facility]ATED)2019-08-07 01:27:00 Test Item Value Reference Range Interpretation Comments POCT GLU (test code = 0568958349) 293 mg/dL 70-110 H Lab Interpretation (test code = Abnormal 67691-6) [facility] TexasThyroid Stimulating Hormone (TSH)2019-08-06 23:41:00 Test Item Value Reference Range Interpretation Comments TSH (test code = See_Comment [Automated message] 9994013826) The system [employer] generated this result transmitted ref erence range: 0.45 - 4 .70 mIU/L. The refe rence range was not u sed to interpret this result as normal/abnor mal. Lab Interpretation (test Normal code = 57139-7) [facility] TexasMagnesium [id number] 23:22:00 Test Item Value Reference Range Interpretation Comments MAGNESIUM (test code = 6996002530) 2.0 mg/dL 1.7-2.4 Lab Interpretation (test code = Normal 13694-9) [facility] TexasLipid Panel (Total Cholesterol, Triglycerides, HDL) - [id number] 23:12:00 Test Item Value Reference Range Interpretation Comments CHOL (test code = 185 mg/dL 120-200 4818804332) HDL (test code = 27 mg/dL >40 L 6265070980) HDLC RATIO (test code = See_Comment H [Au tomated message] 6678168723) The system [employer] generated this result transmit ludmila reference range : <=5.0. The refe rence range was not u sed to interpret th is result as normal/abnormal . TRIG (test code = 280 mg/dL 30-170 H 6138155078) LDL CHOL (test code = 102 mg/dL See_Comment [Auto mated message] 37320-5) The system [employer] generated this result transmit ludmila reference range : <=160. The refe rence range was not u sed to interpret th is result as normal/abnormal . VLDL (test code = 56 mg/dL 5-60 9500488198) Lab Interpretation (test Abnormal code = 53137-1) [facility] TexasTROPONIN [id number] 20:39:00 Test Item Value Reference Range Interpretation Comments TROPONIN I (test 0.018 ng/mL See_Comment [Automated code = 6025465931) message] The system which generated this result [...] ? Lab Interpretation Normal (test code = 55267-3) [facility] [place]XR CHEST 1 [id number] 20:32:21HISTORY: Chest pain. TECHNIQUE: 2 Portable AP [...] artery noted.CONCLUSIONS: No signs of acute cardiopulmonary disease.[facility]. METABOLIC PANEL (71231)2019-08-06 20:29:00 Test Item Value Reference Range Interpretation Comments NA (test code = 139 mmol/L 135-145 8001436867) K (test code = 4.2 mmol/L 3.5-5 7371955317) CL (test code = 103 mmol/L 98-108 6773919010) CO2 TOTAL (test code = 23 mmol/L 23-31 6389993075) AGAP (test code = 2-16 7646909400) BUN (test code = 15 mg/dL 7-23 9993984832) GLUCOSE (test code = 337 mg/dL 70-110 H 7596605519) CREATININE (test code = 0.60 mg/dL 0.6-1.25 8420958937) TOTAL BILI (test code = 0.4 mg/dL 0.1-1.3 6301210892) CALCIUM (test code = 9.8 mg/dL 8.6-10.6 6426264838) T PROTEIN (test code = 8.2 g/dL 6.3-8.2 4887904047) ALBUMIN (test code = 4.6 g/dL 3.5-5 0990837478) ALK PHOS (test code = 154 U/L 34-122 H 9523198083) ALTv (test code = 22 U/L 5-50 1742-6) AST(SGOT) (test code = 25 U/L 13-40 1968534564) eGFR Calculation mL/min/1.73m2 (Non-) (test code = 6944750746) eGFR Calculation mL/min/1.73m2 () (test code = 6706521549) DIANE (test code = DIANE) Association of [...] tests). Lab Interpretation Abnormal (test code = 34067-1) [facility] TexasLIPASE, [id number] 20:28:00 Test Item Value Reference Range Interpretation Comments LIPASE (test code = 3062695782) 464 U/L 0-220 H Lab Interpretation (test code = Abnormal 11669-5) [facility] TexasCBC WITH [id number] 20:27:00 Test Item Value Reference Range Interpretation Comments WBC (test code = See_Comment [Automated 2890-2) message] The sy stem which generated this [...] RDW-SD (test code = 43.4 fL 38.5-51.6 39936-6) RDW-CV (test code = 13.3 % 12.1-15.4 788-0) PLT (test code = See_Comment H [Automated 777-3) message] The sy stem which generated this result transmitted reference range : 150 - 328 10*3/ ?L. The reference r batsheva was not used to interpret this result as normal/abnormal . MPV (test code = 10.3 fL 9.8-13 30750-0) NRBC/100 WBC (test See_Comment [Automat ed code = 1172513859) message] The system which generated this result transmitted reference range : 0.0 - 10.0 /100 WBCs. The refer ence range was not u sed to interpret th is result as normal/abnormal . NRBC x10^3 (test code <0.01 See_Comment [Auto mated = 3643809067) message] The s ystem which generated this result transmitted reference range : 10*3/?L. The reference range was not used to interpret this result as normal/abnormal . GRAN MAT (NEUT) % 62.5 % (test code = 770-8) IMM GRAN % (test code 1.50 % = 7138025445) LYMPH % (test code = 27.0 % 736-9) MONO % (test code = 6.5 % 5905-5) EOS % (test code = 2.1 % 713-8) BASO % (test code = 0.4 % 706-2) GRAN MAT x10^3(ANC) 6.35 10*3/uL 1.99-6.95 (test code = 6268127976) IMM GRAN x10^3 (test 0.15 10*3/uL 0-0.06 H code = 4597251555) LYMPH x10^3 (test code 2.74 10*3/uL 1.09-3.23 = 731-0) MONO x10^3 (test code 0.66 10*3/uL 0.36-1.02 = 742-7) EOS x10^3 (test code = 0.21 10*3/uL 0.06-0.53 711-2) BASO x10^3 (test code 0.04 10*3/uL 0.01-0.09 = 704-7) Lab Interpretation Abnormal (test code = 90946-8) [facility]PROT[facility] / [id number] 20:23:00 Test Item Value Reference Range Interpretation [...] tions. Lab Interpretation (test Normal code = 82536-8) [facility] 20:22:00 Test Item Value Reference Range Interpretation Comments APTT Patient (test See_Comment [Automat ed code = 3173-2) message] The system which generated this result transmitted reference range : 23 - 38 Seconds . The reference range was not used to interpr et this result as normal/abnormal . DIANE (test code = DIANE) The [facility] patient population mean normal value for aPTT is 30 seconds. Lab Interpretation Normal (test code = 68435-0) [facility]PO[facility] GLU[facility]SE [facility]AUT[facility]ATED)2019-07-18 23:35:00 Test Item Value Reference Range Interpretation Comments POCT GLU (test code = 6939053842) 241 mg/dL 70-110 H Lab Interpretation (test code = Abnormal 24841-4) [facility] TexasSEDIMENTATION [id number] 22:16:00 Test Item Value Reference Range Interpretation Comments ESR (test code = See_Comment H [Automated message] 7161243175) The system [employer] generated this result transmitted ref erence range: 0 - 10 m m/HR. The reference r batsheva was not used to interpret this result as normal/abnor mal. Lab Interpretation (test Abnormal code = 59604-4) [facility] (for use with Heparin Practice Guideline). Note: Draw and Send all Lab STAT.2019-07-18 21:09:00 Test Item Value Reference Range Interpretation Comments APTT Patient (test code See_Comment H [Au tomated message] = 3173-2) The system [employer] generated this result transmitted ref erence range: 26 - 36 Seconds. The reference range was not used to int erpret this result as normal/abnormal . Lab Interpretation (test Abnormal code = 64279-7) [facility] TexasC-REACTIVE [id number] 20:31:00 Test Item Value Reference Range Interpretation Comments CRP (test code = 5105196654) 0.4 mg/dL <0.8 Lab Interpretation (test code = Normal 67051-4) [facility] TexasTROPONIN [id number] 17:57:00 Test Item Value Reference Range Interpretation Comments TROPONIN I (test 0.031 ng/mL See_Comment [Automated code = 4412019232) message] The system which generated this result [...] ? Lab Interpretation Normal (test code = 55357-9) [facility]2019-07-18 15:46:00 Test Item Value Reference Range Interpretation Comments POCT GLU (test code = 1366852649) 170 mg/dL 70-110 H Lab Interpretation (test code = Abnormal 74856-5) [facility] ABDOMEN PELVIS W [id number] 15:45:[address] findings of acute intra-abdominal [...] the right gluteal soft tissues. (3: 1:30). [facility], Radiant Results Inft User - 07/18/2019 9:46 [...] common femoral, left internal andleft external iliac veins.IAdiit MD., have reviewed this study and agree with the abovereport.[facility] TexasXR FOOT 3+ VW [id number] 15:18:27FINDINGS/IMPRESSION: No ?acute fracture or dislocation. Soft tissue swelling at the plantar aspect of the healed with lucency mayrepresent an ulcer. No underlying bony erosions or periosteal reaction arepresent to suggest osteomyelitis. Vascular calcifications are noted EXAM: XR FOOT 3+ VW LEFT HISTORY: 59 years-old Male heel soft tissue swelling, evaluate to screenfor calcaneal osteomyelitisCOMPARISON: None. [facility], Radiant Results Inft User - 07/18/2019 9:19 AM CSTEXAM: XR FOOT 3+ VW LEFTHISTORY: 59 years-old Male heel soft tissue swelling, evaluate to screenfor calcaneal osteomyelitis COMPARISON: None.IMPRESSIONFINDINGS/IMPRESSION:No acute fracture or dislocation. Soft tissue swelling at the plantar aspect of the healed with lucency mayrepresent an ulcer. No underlying bony erosions or periosteal reaction arepresent to suggest osteomyelitis.Vascular calcifications are notedUnFormerly [facility] HospitalTROPODESI [id number] 12:08:00 Test Item Value Reference Range Interpretation Comments TROPONIN I (test 0.013 ng/mL See_Comment [Automated code = 1351147013) message] The system which generated this result [...] ? Lab Interpretation Normal (test code = 93135-0) [facility] TexasLIPASE2020-02-27 11:37:00 Test Item Value Reference Range Interpretation Comments LIPASE (test code = 0674394688) 112 U/L 0-220 Lab Interpretation (test code = Normal 68100-7) [facility] [place]POCT GLUCOSE (AUTOMATED)2019-07-18 10:21:00 Test Item Value Reference Range Interpretation Comments POCT GLU (test code = 2979441346) 253 mg/dL 70-110 H Lab Interpretation (test code = Abnormal 20678-1) [facility] TexasXR CHEST 1 [id number] 05:40:50 No acute cardiopulmonary abnormality. Preliminary Report [...] reviewed this study andagree with the abovereport. [facility] TexasTROPONIN [id number] 04:39:00 Test Item Value Reference Range Interpretation Comments TROPONIN I (test 0.015 ng/mL See_Comment [Automated code = 6103522943) message] The system which generated this result [...] ? Lab Interpretation Normal (test code = 69567-4) [facility] TexasN-TERMINAL [id number] 04:36:00 Test Item Value Reference Range Interpretation Comments NT-proBNP (test code 226 pg/mL See_Comment H [Autom ated = 9497081459) message] The system which generated this result transmitted reference range : <=125. The reference range was not used to interpret this result as normal/abnormal . DIANE (test code = DIANE) Biotin has been reported to cause a negative bias, interpret results relative to patient's use of biotin. Lab Interpretation Abnormal (test code = 93647-5) [facility]. METABOLIC PANEL (12668)2019-07-18 04:27:00 Test Item Value Reference Range Interpretation Comments NA (test code = 138 mmol/L 135-145 6810366020) K (test code = 4.4 mmol/L 3.5-5 5709996928) CL (test code = 102 mmol/L 98-108 6447771921) CO2 TOTAL (test code = 22 mmol/L 23-31 L 6144293056) AGAP (test code = 2-16 9146501350) BUN (test code = 16 mg/dL 7-23 0384742222) GLUCOSE (test code = 373 mg/dL 70-110 H 5001986137) CREATININE (test code = 0.71 mg/dL 0.6-1.25 1690906286) TOTAL BILI (test code = 0.3 mg/dL 0.1-1.8 4304045201) CALCIUM (test code = 10.0 mg/dL 8.6-10.6 6393678393) T PROTEIN (test code = 7.6 g/dL 6.3-8.2 0711406662) ALBUMIN (test code = 4.7 g/dL 3.5-5 0905633671) ALK PHOS (test code = 183 U/L 34-122 H 0834440672) ALTv (test code = 48 U/L 5-50 1742-6) AST(SGOT) (test code = 24 U/L 13-40 9910173590) eGFR Calculation mL/min/1.73m2 (Non-) (test code = 2024371928) eGFR Calculation mL/min/1.73m2 () (test code = 3030310849) DIANE (test code = DIANE) Association of [...] tests). Lab Interpretation Abnormal (test code = 94043-9) [facility] TexasPROTHROMBIN TIME / [id number] 04:24:00 Test Item Value Reference Range Interpretation Comments PROTIME PATIENT (test See_Comment [Auto mated message] code = 5964-2) The system [employer] ich generated this result transmitted ref erence range: 12.0 - 1 4.7 Seconds. The re ference range was not u sed to interpret this result as normal/abnor mal. INR (test code = 6301-6) Nor mal INR <1.1; Warfarin Therap eutic range 2.0 to 3. 0 or 2.5 to 3.5, dep ending upon the indica tions. Lab Interpretation (test Normal code = 44170-0) [facility] TexasCB WITH [id number] 04:14:00 Test Item Value Reference Range Interpretation Comments WBC (test code = See_Comment [Automated 3090-2) message] The sy stem which generated this [...] RDW-SD (test code = 44.4 fL 38.5-51.6 52164-8) RDW-CV (test code = 13.8 % 12.1-15.4 788-0) PLT (test code = See_Comment [Automated 777-3) message] The sy stem which generated this result transmitted reference range : 150 - 328 10*3/ ?L. The reference r batsheva was not used to interpret this result as normal/abnormal . MPV (test code = 9.5 fL 9.8-13 L 10971-7) NRBC/100 WBC (test See_Comment [Automat ed code = 5791963551) message] The system which generated this result transmitted reference range : 0.0 - 10.0 /100 WBCs. The refer ence range was not u sed to interpret th is result as normal/abnormal . NRBC x10^3 (test code <0.01 See_Comment [Auto mated = 4088018475) message] The s ystem which generated this result transmitted reference range : 10*3/?L. The reference range was not used to interpret this result as normal/abnormal . GRAN MAT (NEUT) % 66.6 % (test code = 770-8) IMM GRAN % (test code 0.80 % = 2924454802) LYMPH % (test code = 21.8 % 736-9) MONO % (test code = 8.3 % 5905-5) EOS % (test code = 2.2 % 713-8) BASO % (test code = 0.3 % 706-2) GRAN MAT x10^3(ANC) 6.44 10*3/uL 1.99-6.95 (test code = 8933779573) IMM GRAN x10^3 (test 0.08 10*3/uL 0-0.06 H code = 0640561539) LYMPH x10^3 (test code 2.11 10*3/uL 1.09-3.23 = 731-0) MONO x10^3 (test code 0.80 10*3/uL 0.36-1.02 = 742-7) EOS x10^3 (test code = 0.21 10*3/uL 0.06-0.53 711-2) BASO x10^3 (test code 0.03 10*3/uL 0.01-0.09 = 704-7) Lab Interpretation Abnormal (test code = 22377-9) [facility] GLUCOSE (AUTOMATED)2019-06-26 23:26:00 Test Item Value Reference Range Interpretation Comments POCT GLU (test code = 4762707007) 204 mg/dL 70-110 H Lab Interpretation (test code = Abnormal 69108-9) [facility] GLUCOSE (AUTOMATED)2019-06-26 17:53:00 Test Item Value Reference Range Interpretation Comments POCT GLU (test code = 3930632978) 115 mg/dL 70-110 H Lab Interpretation (test code = Abnormal 79596-4) [facility] Metabolic Panel (NA, K, CL, CO2, GLUCOSE, BUN, CREATININE, CA)2019-06-26 11:15:00 Test Item Value Reference Range Interpretation Comments NA (test code = 138 mmol/L 135-145 6160803795) K (test code = 3.7 mmol/L 3.5-5 2099812353) CL (test code = 109 mmol/L 98-108 H 0184538653) CO2 TOTAL (test code = 20 mmol/L 23-31 L 8407061032) AGAP (test code = 2-16 5544556296) BUN (test code = 10 mg/dL 7-23 3996558383) GLUCOSE (test code = 121 mg/dL 70-110 H 2235260622) CREATININE (test code = 0.40 mg/dL 0.6-1.25 L 9436060517) CALCIUM (test code = 8.0 mg/dL 8.6-10.6 L 8726366217) eGFR Calculation mL/min/1.73m2 (Non-) (test code = 0443924352) eGFR Calculation mL/min/1.73m2 () (test code = 4413738221) DIANE (test code = DIANE) Association of [...] tests). Lab Interpretation Abnormal (test code = 16547-4) [facility] [id number] 11:15:00 Test Item Value Reference Range Interpretation Comments MAGNESIUM (test code = 1638622320) 1.6 mg/dL 1.7-2.4 L Lab Interpretation (test code = Abnormal 17914-9) [facility] WITH [id number] 10:49:00 Test Item Value Reference Range Interpretation [...] RDW-SD (test code = 41.4 fL 38.5-51.6 40125-4) RDW-CV (test code = 13.2 % 12.1-15.4 788-0) PLT (test code = See_Comment [Automated 777-3) message] The sy stem which generated this result transmitted reference range : 150 - 328 10*3/ ?L. The reference r batsheva was not used to interpret this result as normal/abnormal . MPV (test code = 10.2 fL 9.8-13 09208-8) NRBC/100 WBC (test See_Comment [Automat ed code = 4983292011) message] The system which generated this result transmitted reference range : 0.0 - 10.0 /100 WBCs. The refer ence range was not u sed to interpret th is result as normal/abnormal . NRBC x10^3 (test code <0.01 See_Comment [Auto mated = 6614995528) message] The s ystem which generated this result transmitted reference range : 10*3/?L. The reference range was not used to interpret this result as normal/abnormal . GRAN MAT (NEUT) % 77.6 % (test code = 770-8) IMM GRAN % (test code 0.40 % = 8715231284) LYMPH % (test code = 13.8 % 736-9) MONO % (test code = 6.6 % 5905-5) EOS % (test code = 1.5 % 713-8) BASO % (test code = 0.1 % 706-2) GRAN MAT x10^3(ANC) 5.29 10*3/uL 1.99-6.95 (test code = 7525895679) IMM GRAN x10^3 (test 0.03 10*3/uL 0-0.06 code = 7773699199) LYMPH x10^3 (test code 0.94 10*3/uL 1.09-3.23 L = 731-0) MONO x10^3 (test code 0.45 10*3/uL 0.36-1.02 = 742-7) EOS x10^3 (test code = 0.10 10*3/uL 0.06-0.53 711-2) BASO x10^3 (test code <0.03 0.01-0.09 = 704-7) Lab Interpretation Abnormal (test code = 85525-1) [facility] - Initial blood draw to be done 2 hours after procedure.2019-06-26 06:11:00 Test Item Value Reference Range Interpretation Comments APTT Patient (test code = See_Comment [ Automated message] 3173-2) The system [employer] generated this result transmitted ref erence range: 26 - 36 Seconds. The re ference range was not u sed to interpret this result as normal/abnor mal. Lab Interpretation (test Normal code = 87118-3) [facility] - Initial blood draw to be done 2 hours after procedure.2019-06-26 03:12:00 Test Item Value Reference Range Interpretation Comments APTT Patient (test code See_Comment H [Au tomated message] = 3173-2) The system [employer] generated this result transmitted ref erence range: 26 - 36 Seconds. The reference range was not used to int erpret this result as normal/abnormal . Lab Interpretation (test Abnormal code = 49981-7) [facility] GLUCOSE (AUTOMATED)2019-06-26 02:47:00 Test Item Value Reference Range Interpretation Comments POCT GLU (test code = 2906050308) 165 mg/dL 70-110 H Lab Interpretation (test code = Abnormal 44068-3) [facility] (for use with Heparin Practice Guideline). Note: Draw and Send all Lab STAT.2019-06-26 00:55:00 Test Item Value Reference Range Interpretation Comments APTT Patient (test code >150 See_Comment HH [Au tomated message] = 3173-2) The system [employer] generated this result transmitted ref erence range: 26 - 36 Seconds. The reference range was not used to int erpret this result as normal/abnormal . Lab Interpretation (test Abnormal code = 59215-5) [facility] GLUCOSE (AUTOMATED)2019-06-25 21:53:00 Test Item Value Reference Range Interpretation Comments POCT GLU (test code = 3760529418) 178 mg/dL 70-110 H Lab Interpretation (test code = Abnormal 19875-7) [facility] ACT LOW [id number] 21:14:00 Test Item Value Reference Range Interpretation Comments ACTLR (test code = See_Comment H [Automat ed message] 7860506386) The system [employer] generated this result transmitted ref erence range: 89 - 169 Seconds. The reference range was not used to int erpret this result as normal/abnormal . Lab Interpretation (test Abnormal code = 49921-8) [facility] ACT LOW [id number] 19:29:00 Test Item Value Reference Range Interpretation Comments ACTLR (test code = See_Comment H [Automat ed message] 4341125788) The system [employer] generated this result transmitted ref erence range: 89 - 169 Seconds. The reference range was not used to int erpret this result as normal/abnormal . Lab Interpretation (test Abnormal code = 88554-7) [facility] GLUCOSE (AUTOMATED)2019-06-25 16:14:00 Test Item Value Reference Range Interpretation Comments POCT GLU (test code = 0107527209) 195 mg/dL 70-110 H Lab Interpretation (test code = Abnormal 28220-3) [facility]GALV/CLC ONLY - URINE DRUG (IMMUNOASSAY) - COMPREHENSIVE DRUG [id number] 10:50:00 Test Item Value Reference Range Interpretation Comments AMPHET (test code = Negative Negative 7902383683) JUNG U (test code = Negative Negative 2679117706) BENZO U (test code = Negative Negative 9075099710) Cocaine Metabolite (test Negative Negative code = 0478748027) METHADONE (test code = Negative Negative 2560629756) OPIATES (test code = Presumptive Positive Negative A 9432302092) PCP (test code = Negative Negative 4182129967) THC (test code = Negative Negative 6343128349) DIANE (test code = DIANE) Urine Drug [...] testing). Lab Interpretation (test Abnormal code = 04443-3) [facility] Metabolic Panel (NA, K, CL, CO2, GLUCOSE, BUN, CREATININE, CA)2019-06-25 10:18:00 Test Item Value Reference Range Interpretation Comments NA (test code = 138 mmol/L 135-145 4762566461) K (test code = 3.2 mmol/L 3.5-5 L 9863483465) CL (test code = 108 mmol/L 98-108 9387085186) CO2 TOTAL (test code = 23 mmol/L 23-31 9562270819) AGAP (test code = 2-16 2064587968) BUN (test code = 17 mg/dL 7-23 3798785501) GLUCOSE (test code = 177 mg/dL 70-110 H 1606921999) CREATININE (test code = 0.61 mg/dL 0.6-1.25 2262519165) CALCIUM (test code = 8.4 mg/dL 8.6-10.6 L 3601674744) eGFR Calculation mL/min/1.73m2 (Non-) (test code = 2124052062) eGFR Calculation mL/min/1.73m2 () (test code = 9622979355) DIANE (test code = DIANE) Association of [...] tests). Lab Interpretation Abnormal (test code = 45102-4) [facility] TexasMagnesium [id number] 10:18:00 Test Item Value Reference Range Interpretation Comments MAGNESIUM (test code = 8327380819) 1.9 mg/dL 1.7-2.4 Lab Interpretation (test code = Normal 78796-1) [facility] TexasTroponin [id number] 10:16:00 Test Item Value Reference Range Interpretation Comments TROPONIN I (test 0.018 ng/mL See_Comment [Automated code = 0605818990) message] The system which generated this result [...] ? Lab Interpretation Normal (test code = 74942-5) [facility]aP[facility] (for use with Heparin Practice Guideline). Note: Draw and Send all Lab STAT.2019-06-25 09:59:00 Test Item Value Reference Range Interpretation Comments APTT Patient (test code See_Comment HH [Au tomated message] = 3173-2) The system [employer] generated this result transmitted ref erence range: 26 - 36 Seconds. The reference range was not used to int erpret this result as normal/abnormal . Lab Interpretation (test Abnormal code = 91980-0) [facility] TexasUREA NITROGEN, URINE [id number] 09:46:00 Test Item Value Reference Range Interpretation Comments UREA N UR (test code = 2069746115) 511 mg/dL [facility] TexasCREATININE, URINE [id number] 09:46:00 Test Item Value Reference Range Interpretation Comments CREAT U (test code = 6528887381) 114.4 mg/dL [facility] TexasSODIUM, URINE [id number] 09:46:00 Test Item Value Reference Range Interpretation Comments NA URINE (test code = 5570481969) 109 mmol/L [facility] WITH [id number] 09:33:00 Test Item Value Reference Range Interpretation [...] RDW-SD (test code = 41.6 fL 38.5-51.6 32419-9) RDW-CV (test code = 12.9 % 12.1-15.4 788-0) PLT (test code = See_Comment [Automated 777-3) message] The sy stem which generated this result transmitted reference range : 150 - 328 10*3/ ?L. The reference r batsheva was not used to interpret this result as normal/abnormal . MPV (test code = 10.1 fL 9.8-13 05311-8) NRBC/100 WBC (test See_Comment [Automat ed code = 7110486369) message] The system which generated this result transmitted reference range : 0.0 - 10.0 /100 WBCs. The refer ence range was not u sed to interpret th is result as normal/abnormal . NRBC x10^3 (test code <0.01 See_Comment [Auto mated = 8256272909) message] The s ystem which generated this result transmitted reference range : 10*3/?L. The reference range was not used to interpret this result as normal/abnormal . GRAN MAT (NEUT) % 43.0 % (test code = 770-8) IMM GRAN % (test code 0.50 % = 8983396217) LYMPH % (test code = 43.4 % 736-9) MONO % (test code = 9.7 % 5905-5) EOS % (test code = 3.2 % 713-8) BASO % (test code = 0.2 % 706-2) GRAN MAT x10^3(ANC) 2.38 10*3/uL 1.99-6.95 (test code = 3534490211) IMM GRAN x10^3 (test 0.03 10*3/uL 0-0.06 code = 8278511699) LYMPH x10^3 (test code 2.41 10*3/uL 1.09-3.23 = 731-0) MONO x10^3 (test code 0.54 10*3/uL 0.36-1.02 = 742-7) EOS x10^3 (test code = 0.18 10*3/uL 0.06-0.53 711-2) BASO x10^3 (test code <0.03 0.01-0.09 = 704-7) Lab Interpretation Abnormal (test code = 95243-8) [id number] 03:14:00 Test Item Value Reference Range Interpretation Comments TROPONIN I (test 0.009 ng/mL See_Comment [Automated code = 9512600477) message] The system which generated this result [...] ? Lab Interpretation Normal (test code = 60086-2) [facility]aP[facility] (for use with Heparin Practice Guideline). Note: Draw and Send all Lab STAT.2019-06-25 03:06:00 Test Item Value Reference Range Interpretation Comments APTT Patient (test code = See_Comment [ Automated message] 3173-2) The system [employer] generated this result transmitted ref erence range: 26 - 36 Seconds. The re ference range was not u sed to interpret this result as normal/abnor mal. Lab Interpretation (test Normal code = 38108-4) [facility] TexasGLYCOSYLATED HEMOGLOBIN (A1C)2019-06-25 03:04:00 Test Item Value Reference Interpretation Comments Range HGB A1C (test code = See_Comment H [Autom ated 2738-4) message] The system which generated this result transmitted reference range : 4.0 - 6.0 % NGSP. The reference range was not used to interpret this result as normal/abnormal . DIANE (test code = %A1C (NGSP) DIANE) Interpretation (ADA)4.8-5.6 ? ? Normal or (Non-Diabetic Range)5.7-6.4 ? ? Increased Risk (Pre-Diabetic)>6.5 ?Diabetes Indicated Lab Interpretation Abnormal (test code = 28241-6) [facility] TexasPhosphorus [id number] 02:59:00 Test Item Value Reference Range Interpretation Comments PHOSPHORUS (test code = 5983318195) 3.2 mg/dL 2.5-5 Lab Interpretation (test code = Normal 61694-5) [facility] TexasPOCT GLUCOSE (AUTOMATED)2019-06-25 02:27:00 Test Item Value Reference Range Interpretation Comments POCT GLU (test code = 6898068572) 256 mg/dL 70-110 H Lab Interpretation (test code = Abnormal 10133-1) [facility] TexasUrinalysis2020-02-03 23:02:00 Test Item Value Reference Range Interpretation Comments APPEARANCE (test code = Other Clear A 5744125852) COLOR (test code = Yellow Yellow 1569247922) PH (test code = 4.8-8.0 0493544795) SP GRAVITY (test code = <=1.005 1.003-1.030 7044895456) GLU U QUAL (test code = >1000 mg/dL Negative A 7289154521) BLOOD (test code = Negative Negative 5977400296) KETONES (test code = Trace Negative A 9287353521) PROTEIN (test code = Negative Negative 2887-8) UROBILIN (test code = 0.2 mg/dL See_Comment [Auto mated 6230312854) message] The sy stem which generated this result transmitted reference range : 0-1.0 mg/dL. Th e reference range was not used to interpret this result as normal/abnormal . BILIRUBIN (test code = Negative Negative 4890638462) NITRITE (test code = Negative Negative 4776324883) LEUK PETER (test code = Negative Negative 2608108482) RBC/HPF (test code = See_Comment [Autom ated 1083797742) message] The sy stem which generated this result transmitted reference range : 0 - 3 HPF. The reference range was not used to interpret this result as normal/abnormal . WBC/HPF (test code = See_Comment [Autom ated 2732900902) message] The sy stem which generated this result transmitted reference range : 0 - 5 HPF. The reference range was not used to interpret this result as normal/abnormal . BACTERIA (test code = Few Negative A 5173401360) MUCOUS (test code = Moderate Negative LPF A 4433725513) AMORPHOUS (test code = Few Rare HPF A 5269630787) SQ EPITH (test code = HPF 3221418902) WBC CLUMPS (test code = See_Comment [Au tomated 4065432507) message] The sy stem which generated this result transmitted reference range : <=1 HPF. The reference range was not used to interpret this result as normal/abnormal . Lab Interpretation Abnormal (test code = 17678-6) [facility]IMULATING [id number] 22:45:00 Test Item Value Reference Range Interpretation Comments TSH (test code = See_Comment [Automated message] 6336372669) The system [employer] h generated this result transmitted ref erence range: 0.45 - 4 .70 mIU/L. The refe rence range was not u sed to interpret this result as normal/abnor mal. Lab Interpretation (test Normal code = 63276-9) [facility] TexasTroponin [id number] 22:27:00 Test Item Value Reference Range Interpretation Comments TROPONIN I (test <0.012 See_Comment [Automated code = 4081076224) message] The system which generated this result [...] ? Lab Interpretation Normal (test code = 84426-7) [facility] TexasN-TERMINAL [id number] 22:24:00 Test Item Value Reference Range Interpretation Comments NT-proBNP (test code 302 pg/mL See_Comment H [Autom ated = 5647148547) message] The system which generated this result transmitted reference range : <=125. The reference range was not used to interpret this result as normal/abnormal . DIANE (test code = DIANE) Biotin has been reported to cause a negative bias, interpret results relative to patient's use of biotin. Lab Interpretation Abnormal (test code = 27020-3) [facility] (ALB, T.PRO, BILI T, BU/BC, ALT, AST, ALK PHOS)2019-06-24 22:23:00 Test Item Value Reference Range Interpretation Comments TOTAL BILI (test code = 2965315450) 0.7 mg/dL 0.1-1.1 BILI UNCON (test code = 4330831425) 0.6 mg/dL 0.1-1.1 BILI CONJ (test code = 8093514197) 0.0 mg/dL 0-0.3 T PROTEIN (test code = 2501372757) 7.6 g/dL 6.3-8.2 ALBUMIN (test code = 5449247530) 4.9 g/dL 3.5-5 ALK PHOS (test code = 1177119790) 121 U/L 34-122 ALTv (test code = 1742-6) 25 U/L 5-50 AST(SGOT) (test code = 0343873662) 28 U/L 13-40 Lab Interpretation (test code = Normal 15159-3) [facility] TexasMAGNESIUM2020-02-03 22:17:00 Test Item Value Reference Range Interpretation Comments MAGNESIUM (test code = 8975518359) 1.9 mg/dL 1.7-2.4 Lab Interpretation (test code = Normal 87421-2) [facility] Met[facility] (NA, K, CL, CO2, GLUCOSE, BUN, CREATININE, CA)2019-06-24 22:16:00 Test Item Value Reference Range Interpretation Comments NA (test code = 139 mmol/L 135-145 9927137751) K (test code = 4.3 mmol/L 3.5-5 3750485979) CL (test code = 101 mmol/L 98-108 5238320717) CO2 TOTAL (test code = 21 mmol/L 23-31 L 5111423064) AGAP (test code = 2-16 H 8578572554) BUN (test code = 18 mg/dL 7-23 9724237714) GLUCOSE (test code = 422 mg/dL 70-110 H 9048226171) CREATININE (test code = 1.62 mg/dL 0.6-1.25 H 0371496904) CALCIUM (test code = 10.1 mg/dL 8.6-10.6 8724187331) eGFR Calculation mL/min/1.73m2 (Non-) (test code = 6503720364) eGFR Calculation mL/min/1.73m2 () (test code = 8554671360) DIANE (test code = DIANE) Association of [...] tests). Lab Interpretation Abnormal (test code = 71885-5) [facility] TexasProthrombin Time (PT) / [id number] 21:52:00 Test Item Value Reference Range Interpretation Comments PROTIME PATIENT (test See_Comment [Auto mated message] code = 5964-2) The system [employer] [place] generated this result transmitted ref erence range: 12.0 - 1 4.7 Seconds. The re ference range was not u sed to interpret this result as normal/abnor mal. INR (test code = 6301-6) Nor mal INR <1.1; Warfarin Therap eutic range 2.0 to 3. 0 or 2.5 to 3.5, dep ending upon the indica tions. Lab Interpretation (test Normal code = 60947-0) [facility] WITH [id number] 21:47:00 Test Item Value Reference Range Interpretation Comments WBC (test code = See_Comment [Automated 6202-2) message] The sy stem which generated this result transmitted reference range : 4.20 - 10.70 10*3/?L. The reference range was not used to interpret this result as normal/abnormal . RBC (test code = See_Comment [Automated 719-8) message] The sy stem which generated this [...] (test code = 38.1 fL 38.5-51.6 L 88508-3) RDW-CV (test code = 12.5 % 12.1-15.4 788-0) PLT (test code = See_Comment [Automated 777-3) message] The sy stem which generated this result transmitted reference range : 150 - 328 10*3/ ?L. The reference r batsheva was not used to interpret this result as normal/abnormal . MPV (test code = 10.6 fL 9.8-13 67950-2) NRBC/100 WBC (test See_Comment [Automat ed code = 3025959420) message] The system which generated this result transmitted reference range : 0.0 - 10.0 /100 WBCs. The refer ence range was not u sed to interpret th is result as normal/abnormal . NRBC x10^3 (test code <0.01 See_Comment [Auto mated = 2046557492) message] The s [employer] which generated this result transmitted reference range : 10*3/?L. The reference range was not used to interpret this result as normal/abnormal . GRAN MAT (NEUT) % 62.1 % (test code = 770-8) IMM GRAN % (test code 0.40 % = 2010754713) LYMPH % (test code = 29.3 % 736-9) MONO % (test code = 6.9 % 5905-5) EOS % (test code = 0.9 % 713-8) BASO % (test code = 0.4 % 706-2) GRAN MAT x10^3(ANC) 4.84 10*3/uL 1.99-6.95 (test code = 1817050531) IMM GRAN x10^3 (test 0.03 10*3/uL 0-0.06 code = 1653438544) LYMPH x10^3 (test code 2.28 10*3/uL 1.09-3.23 = 731-0) MONO x10^3 (test code 0.54 10*3/uL 0.36-1.02 = 742-7) EOS x10^3 (test code = 0.07 10*3/uL 0.06-0.53 711-2) BASO x10^3 (test code 0.03 10*3/uL 0.01-0.09 = 704-7) Lab Interpretation Abnormal (test code = 12720-4) [facility] 1 [id number] 21:34:11CHEST PORTABLE ONE VIEW HISTORY:Chest pain TECHNIQUE: [...] No acute cardiopulmonary disease.[facility] SCROTUM AND [id number] 02:23:24 Bilateral epididymal head cysts. Heterogeneous epididymal echotexture is nonspecific but may representchanges of early epididymitis. Clinical correlation is required. No evidence of pseudoaneurysm or hematoma in the right femoral vein in theregion of recent catheterization. IDevin?MD. Daniel, have reviewed this study and agree withthe [...] lymph node measures 2.0 cm in length. [facility], Radiant Results Inft User - 02/05/2019 9:23 [...] reviewed this study and agree withthe above report.[facility] (NA, K, CL, CO2, GLUCOSE, BUN, CREATININE, CA)2019-02-06 00:13:00 Test Item Value Reference Range Interpretation Comments NA (test code = 140 mmol/L 135-145 9941692915) K (test code = 4.3 mmol/L 3.5-5 6149579706) CL (test code = 103 mmol/L 98-108 6529547634) CO2 TOTAL (test code = 22 mmol/L 23-31 L 3654579621) AGAP (test code = 2-16 6583111120) BUN (test code = 20 mg/dL 7-23 9639755148) GLUCOSE (test code = 429 mg/dL 70-110 H 3868039227) CREATININE (test code = 0.74 mg/dL 0.6-1.25 1680895250) CALCIUM (test code = 10.1 mg/dL 8.6-10.6 8480912079) eGFR Calculation mL/min/1.73m2 (Non-) (test code = 2586460858) eGFR Calculation mL/min/1.73m2 () (test code = 8999434254) DIANE (test code = DIANE) Association of [...] tests). Lab Interpretation Abnormal (test code = 91442-1) [facility] TexasURINALYSIS2019-09-17 23:50:00 Test Item Value Reference Range Interpretation Comments APPEARANCE (test code = Clear Clear 7262952731) COLOR (test code = Yellow Yellow 5295856495) PH (test code = 4.8-8.0 9584421771) SP GRAVITY (test code = <=1.005 1.003-1.030 3092306566) GLU U QUAL (test code = >1000 mg/dL Negative A 2527042731) BLOOD (test code = Negative Negative 8424763558) KETONES (test code = Negative Negative 1104663502) PROTEIN (test code = Negative Negative 2887-8) UROBILIN (test code = 0.2 mg/dL See_Comment [Auto mated 3481172531) message] The sy stem which generated this result transmitted reference range : 0-1.0 mg/dL. Th e reference range was not used to interpret this result as normal/abnormal . BILIRUBIN (test code = Negative Negative 2055164046) NITRITE (test code = Negative Negative 9782883337) LEUK PETER (test code = Negative Negative 3522616117) RBC/HPF (test code = See_Comment [Autom ated 0786081065) message] The sy stem which generated this result transmitted reference range : 0 - 3 HPF. The reference range was not used to interpret this result as normal/abnormal . WBC/HPF (test code = See_Comment [Autom ated 2113305301) message] The sy stem which generated this result transmitted reference range : 0 - 5 HPF. The reference range was not used to interpret this result as normal/abnormal . BACTERIA (test code = Negative Negative 3186695194) Lab Interpretation Abnormal (test code = 73736-8) [facility] WITH [id number] 23:35:00 Test Item Value Reference Range Interpretation [...] RDW-SD (test code = 41.7 fL 38.5-51.6 75781-3) RDW-CV (test code = 13.1 % 12.1-15.4 788-0) PLT (test code = See_Comment [Automated 777-3) message] The sy stem which generated this result transmitted reference range : 150 - 328 10*3/ ?L. The reference r batsheva was not used to interpret this result as normal/abnormal . MPV (test code = 10.0 fL 9.8-13 11632-0) NRBC/100 WBC (test See_Comment [Automat ed code = 6993594267) message] The system which generated this result transmitted reference range : 0.0 - 10.0 /100 WBCs. The refer ence range was not u sed to interpret th is result as normal/abnormal . NRBC x10^3 (test code <0.01 See_Comment [Auto mated = 0132070572) message] The s ystem which generated this result transmitted reference range : 10*3/?L. The reference range was not used to interpret this result as normal/abnormal . GRAN MAT (NEUT) % 62.6 % (test code = 770-8) IMM GRAN % (test code 0.60 % = 5495565279) LYMPH % (test code = 24.3 % 736-9) MONO % (test code = 8.1 % 5905-5) EOS % (test code = 3.9 % 713-8) BASO % (test code = 0.5 % 706-2) GRAN MAT x10^3(ANC) 3.96 10*3/uL 1.99-6.95 (test code = 3197870882) IMM GRAN x10^3 (test 0.04 10*3/uL 0-0.06 code = 8115582815) LYMPH x10^3 (test code 1.54 10*3/uL 1.09-3.23 = 731-0) MONO x10^3 (test code 0.51 10*3/uL 0.36-1.02 = 742-7) EOS x10^3 (test code = 0.25 10*3/uL 0.06-0.53 711-2) BASO x10^3 (test code 0.03 10*3/uL 0.01-0.09 = 704-7) Lab Interpretation Abnormal (test code = 31395-0) [facility] GLUCOSE (AUTOMATED)2019-01-29 16:48:00 Test Item Value Reference Range Interpretation Comments POCT GLU (test code = 275 mg/dL 70-110 H 6861966422) DIANE (test code = DIANE) Notified Provider Lab Interpretation (test Abnormal code = 57709-8) [facility] GLUCOSE (AUTOMATED)2019-01-29 14:48:00 Test Item Value Reference Range Interpretation Comments POCT GLU (test code = 2105168956) 256 mg/dL 70-110 H Lab Interpretation (test code = Abnormal 07414-9) [facility] (NA, K, CL, CO2, GLUCOSE, BUN, CREATININE, CA)2019-01-29 09:54:00 Test Item Value Reference Range Interpretation Comments NA (test code = 137 mmol/L 135-145 0306925654) K (test code = 3.6 mmol/L 3.5-5 5412390292) CL (test code = 107 mmol/L 98-108 3745649714) CO2 TOTAL (test code = 24 mmol/L 23-31 4158915706) AGAP (test code = 2-16 4488323470) BUN (test code = 8 mg/dL 7-23 1697649855) GLUCOSE (test code = 190 mg/dL 70-110 H 6497149364) CREATININE (test code = 0.54 mg/dL 0.6-1.25 L 3588154267) CALCIUM (test code = 8.4 mg/dL 8.6-10.6 L 6395916406) eGFR Calculation mL/min/1.73m2 (Non-) (test code = 1352048036) eGFR Calculation mL/min/1.73m2 () (test code = 8159319004) DIANE (test code = DIANE) Association of [...] tests). Lab Interpretation Abnormal (test code = 20507-3) [facility]2019-09-10 09:54:00 Test Item Value Reference Range Interpretation Comments MAGNESIUM (test code = 6224997596) 1.6 mg/dL 1.7-2.4 L Lab Interpretation (test code = Abnormal 59967-6) [facility] GLUCOSE (AUTOMATED)2019-01-29 03:07:00 Test Item Value Reference Range Interpretation Comments POCT GLU (test code = 4862847611) 233 mg/dL 70-110 H Lab Interpretation (test code = Abnormal 29969-1) [facility] GLUCOSE (AUTOMATED)2019-01-29 01:37:00 Test Item Value Reference Range Interpretation Comments POCT GLU (test code = 182 mg/dL 70-110 H 9513275158) DIANE (test code = DIANE) Notified Provider Lab Interpretation (test Abnormal code = 34689-2) [facility] GLUCOSE (AUTOMATED)2019-01-28 23:15:00 Test Item Value Reference Range Interpretation Comments POCT GLU (test code = 163 mg/dL 70-110 H 7079627054) DIANE (test code = DIANE) Notified Provider Lab Interpretation (test Abnormal code = 49084-6) [facility] WITH [id number] 21:17:00 Test Item Value Reference Range Interpretation [...] RDW-SD (test code = 43.6 fL 38.5-51.6 15259-7) RDW-CV (test code = 13.2 % 12.1-15.4 788-0) PLT (test code = See_Comment [Automated 777-3) message] The sy stem which generated this result transmitted reference range : 150 - 328 10*3/ ?L. The reference r batsheva was not used to interpret this result as normal/abnormal . MPV (test code = 10.3 fL 9.8-13 62430-9) NRBC/100 WBC (test See_Comment [Automat ed code = 9692296089) message] The system which generated this result transmitted reference range : 0.0 - 10.0 /100 WBCs. The refer ence range was not u sed to interpret th is result as normal/abnormal . NRBC x10^3 (test code <0.01 See_Comment [Auto mated = 1646356384) message] The s ystem which generated this result transmitted reference range : 10*3/?L. The reference range was not used to interpret this result as normal/abnormal . GRAN MAT (NEUT) % 48.2 % (test code = 770-8) IMM GRAN % (test code 0.40 % = 8062115540) LYMPH % (test code = 35.9 % 736-9) MONO % (test code = 10.7 % 5905-5) EOS % (test code = 4.4 % 713-8) BASO % (test code = 0.4 % 706-2) GRAN MAT x10^3(ANC) 3.42 10*3/uL 1.99-6.95 (test code = 4731364299) IMM GRAN x10^3 (test 0.03 10*3/uL 0-0.06 code = 6247853398) LYMPH x10^3 (test code 2.55 10*3/uL 1.09-3.23 = 731-0) MONO x10^3 (test code 0.76 10*3/uL 0.36-1.02 = 742-7) EOS x10^3 (test code = 0.31 10*3/uL 0.06-0.53 711-2) BASO x10^3 (test code 0.03 10*3/uL 0.01-0.09 = 704-7) Lab Interpretation Abnormal (test code = 64070-7) [facility] ACT LOW [id number] 18:47:00 Test Item Value Reference Range Interpretation Comments ACTLR (test code = See_Comment H [Automat ed message] 7460948387) The system [employer] generated this result transmitted ref erence range: 89 - 169 Seconds. The reference range was not used to int erpret this result as normal/abnormal . Lab Interpretation (test Abnormal code = 76590-6) [facility] ACT LOW [id number] 17:52:00 Test Item Value Reference Range Interpretation Comments ACTLR (test code = See_Comment H [Automat ed message] 1452226162) The system [employer] generated this result transmitted ref erence range: 89 - 169 Seconds. The reference range was not used to int erpret this result as normal/abnormal . Lab Interpretation (test Abnormal code = 58056-6) [facility] ACT LOW [id number] 17:52:00 Test Item Value Reference Range Interpretation Comments ACTLR (test code = See_Comment H [Automat ed message] 7562359618) The system [employer] generated this result transmitted ref erence range: 89 - 169 Seconds. The reference range was not used to int erpret this result as normal/abnormal . Lab Interpretation (test Abnormal code = 52261-6) [facility] GLUCOSE (AUTOMATED)2019-01-28 13:15:00 Test Item Value Reference Range Interpretation Comments POCT GLU (test code = 262 mg/dL 70-110 H 9166101251) DIANE (test code = DIANE) Notified Provider Lab Interpretation (test Abnormal code = 54155-8) [facility] Metabolic Panel (NA, K, CL, CO2, GLUCOSE, BUN, CREATININE, CA)2019-01-28 10:26:00 Test Item Value Reference Range Interpretation Comments NA (test code = 137 mmol/L 135-145 8027187828) K (test code = 4.0 mmol/L 3.5-5 Slight 0076950137) hemolysis CL (test code = 106 mmol/L 98-108 3235106524) CO2 TOTAL (test code 24 mmol/L 23-31 = 9119892569) AGAP (test code = 2-16 3098087265) BUN (test code = 9 mg/dL 7-23 Slight 4850402148) hemolysis GLUCOSE (test code = 268 mg/dL 70-110 H 9805694135) CREATININE (test code 0.55 mg/dL 0.6-1.25 L = 3650278927) CALCIUM (test code = 8.7 mg/dL 8.6-10.6 5280153804) eGFR Calculation mL/min/1.73m2 (Non-) (test code = 8019995917) eGFR Calculation mL/min/1.73m2 () (test code = 3004858069) DIANE (test code = DIANE) Association of [...] tests). Lab Interpretation Abnormal (test code = 83757-1) [facility] [id number] 10:26:00 Test Item Value Reference Range Interpretation Comments MAGNESIUM (test code = 9805307105) 1.7 mg/dL 1.7-2.4 Lab Interpretation (test code = Normal 67494-4) [facility] WITH [id number] 10:09:00 Test Item Value Reference Range Interpretation [...] RDW-SD (test code = 43.8 fL 38.5-51.6 73724-1) RDW-CV (test code = 13.2 % 12.1-15.4 788-0) PLT (test code = See_Comment [Automated 777-3) message] The sy stem which generated this result transmitted reference range : 150 - 328 10*3/ ?L. The reference r batsheva was not used to interpret this result as normal/abnormal . MPV (test code = 10.2 fL 9.8-13 25720-5) NRBC/100 WBC (test See_Comment [Automat ed code = 2837577078) message] The system which generated this result transmitted reference range : 0.0 - 10.0 /100 WBCs. The refer ence range was not u sed to interpret th is result as normal/abnormal . NRBC x10^3 (test code <0.01 See_Comment [Auto mated = 8319480686) message] The s ystem which generated this result transmitted reference range : 10*3/?L. The reference range was not used to interpret this result as normal/abnormal . GRAN MAT (NEUT) % 41.1 % (test code = 770-8) IMM GRAN % (test code 0.70 % = 9337413796) LYMPH % (test code = 43.9 % 736-9) MONO % (test code = 8.8 % 5905-5) EOS % (test code = 5.1 % 713-8) BASO % (test code = 0.4 % 706-2) GRAN MAT x10^3(ANC) 2.34 10*3/uL 1.99-6.95 (test code = 4249418915) IMM GRAN x10^3 (test 0.04 10*3/uL 0-0.06 code = 3626054774) LYMPH x10^3 (test code 2.50 10*3/uL 1.09-3.23 = 731-0) MONO x10^3 (test code 0.50 10*3/uL 0.36-1.02 = 742-7) EOS x10^3 (test code = 0.29 10*3/uL 0.06-0.53 711-2) BASO x10^3 (test code <0.03 0.01-0.09 = 704-7) Lab Interpretation Abnormal (test code = 40561-4) [facility] (for use with Heparin Practice Guideline). Note: Draw and Send all Lab STAT.2019-01-28 05:19:00 Test Item Value Reference Range Interpretation Comments APTT Patient (test code See_Comment H [Au tomated message] = 3173-2) The system [employer] generated this result transmitted ref erence range: 26 - 36 Seconds. The reference range was not used to int erpret this result as normal/abnormal . Lab Interpretation (test Abnormal code = 29936-2) [facility] GLUCOSE (AUTOMATED)2019-01-28 01:53:00 Test Item Value Reference Range Interpretation Comments POCT GLU (test code = 9542466628) 236 mg/dL 70-110 H Lab Interpretation (test code = Abnormal 67048-2) [facility] GLUCOSE (AUTOMATED)2019-01-27 23:43:00 Test Item Value Reference Range Interpretation Comments POCT GLU (test code = 7724845625) 215 mg/dL 70-110 H Lab Interpretation (test code = Abnormal 62876-6) [facility] GLUCOSE (AUTOMATED)2019-01-27 20:43:00 Test Item Value Reference Range Interpretation Comments POCT GLU (test code = 9614710803) 193 mg/dL 70-110 H Lab Interpretation (test code = Abnormal 43494-0) [facility] (for use with Heparin Practice Guideline). Note: Draw and Send all Lab STAT.2019-01-27 17:52:00 Test Item Value Reference Range Interpretation Comments APTT Patient (test code See_Comment H [Au tomated message] = 3173-2) The system [employer] generated this result transmitted ref erence range: 26 - 36 Seconds. The reference range was not used to int erpret this result as normal/abnormal . Lab Interpretation (test Abnormal code = 02490-5) [facility] GLUCOSE (AUTOMATED)2019-01-27 17:44:00 Test Item Value Reference Range Interpretation Comments POCT GLU (test code = 261 mg/dL 70-110 H 5833857807) DIANE (test code = DIANE) Notified Provider Lab Interpretation (test Abnormal code = 57558-6) [facility] GLUCOSE (AUTOMATED)2019-01-27 12:58:00 Test Item Value Reference Range Interpretation Comments POCT GLU (test code = 0160546847) 201 mg/dL 70-110 H Lab Interpretation (test code = Abnormal 90092-2) [facility] TexasJORGE [id number] 06:19:00 Test Item Value Reference Range Interpretation Comments TROPONIN I (test 0.033 ng/mL See_Comment [Automated code = 1555002912) message] The system which generated this result [...] ? Lab Interpretation Normal (test code = 79045-7) [facility] (NA, K, CL, CO2, GLUCOSE, BUN, CREATININE, CA)2019-01-27 06:08:00 Test Item Value Reference Range Interpretation Comments NA (test code = 141 mmol/L 135-145 7484027971) K (test code = 4.1 mmol/L 3.5-5 8536451637) CL (test code = 108 mmol/L 98-108 8366364957) CO2 TOTAL (test code = 26 mmol/L 23-31 2872522519) AGAP (test code = 2-16 8200766916) BUN (test code = 10 mg/dL 7-23 8855183860) GLUCOSE (test code = 127 mg/dL 70-110 H 0495004398) CREATININE (test code = 0.57 mg/dL 0.6-1.25 L 7332650100) CALCIUM (test code = 9.3 mg/dL 8.6-10.6 9339568243) eGFR Calculation mL/min/1.73m2 (Non-) (test code = 2030143855) eGFR Calculation mL/min/1.73m2 () (test code = 6838983821) DIANE (test code = DIANE) Association of Glomerular Filtration Rate (GFR) and Staging of Kidney Disease*+ + + +| GFR (mL/min/1.73 m2)?| With Kidney Damage?|?Without Kidney Damage+ --------+ --------+ +|?>90?|?S thiene one?|? Normal?+ ---------+ ---------+ +|?60-89? ?|?Stage two?|? [...] tests). Lab Interpretation Abnormal (test code = 67824-2) [facility] TexasMagnesium [id number] 06:08:00 Test Item Value Reference Range Interpretation Comments MAGNESIUM (test code = 8922878849) 1.9 mg/dL 1.7-2.4 Lab Interpretation (test code = Normal 04856-9) [facility] (for use with Heparin Practice Guideline). Note: Draw and Send all Lab STAT.2019-01-27 05:37:00 Test Item Value Reference Range Interpretation Comments APTT Patient (test code See_Comment H [Au tomated message] = 3173-2) The system [employer] generated this result transmitted ref erence range: 26 - 36 Seconds. The reference range was not used to int erpret this result as normal/abnormal . Lab Interpretation (test Abnormal code = 96429-5) [facility] WITH [id number] 05:31:00 Test Item Value Reference Range Interpretation Comments WBC (test code = See_Comment [Automated 2390-2) message] The sy stem which generated this result transmitted reference range : 4.20 - 10.70 10*3/?L. The reference range was not used to interpret this result as normal/abnormal . RBC (test code = See_Comment L [Automated 659-8) message] The sy stem which generated this [...] RDW-SD (test code = 43.0 fL 38.5-51.6 98370-2) RDW-CV (test code = 13.2 % 12.1-15.4 788-0) PLT (test code = See_Comment [Automated 777-3) message] The sy stem which generated this result transmitted reference range : 150 - 328 10*3/ ?L. The reference r batsheva was not used to interpret this result as normal/abnormal . MPV (test code = 9.9 fL 9.8-13 87984-2) NRBC/100 WBC (test See_Comment [Automat ed code = 4610983766) message] The system which generated this result transmitted reference range : 0.0 - 10.0 /100 WBCs. The refer ence range was not u sed to interpret th is result as normal/abnormal . NRBC x10^3 (test code <0.01 See_Comment [Auto mated = 3585834931) message] The s ystem which generated this result transmitted reference range : 10*3/?L. The reference range was not used to interpret this result as normal/abnormal . GRAN MAT (NEUT) % 55.2 % (test code = 770-8) IMM GRAN % (test code 0.20 % = 8603450829) LYMPH % (test code = 30.5 % 736-9) MONO % (test code = 9.1 % 5905-5) EOS % (test code = 4.5 % 713-8) BASO % (test code = 0.5 % 706-2) GRAN MAT x10^3(ANC) 3.53 10*3/uL 1.99-6.95 (test code = 3836421606) IMM GRAN x10^3 (test <0.03 0-0.06 code = 5153700175) LYMPH x10^3 (test code 1.95 10*3/uL 1.09-3.23 = 731-0) MONO x10^3 (test code 0.58 10*3/uL 0.36-1.02 = 742-7) EOS x10^3 (test code = 0.29 10*3/uL 0.06-0.53 711-2) BASO x10^3 (test code 0.03 10*3/uL 0.01-0.09 = 704-7) Lab Interpretation Abnormal (test code = 69255-6) [facility] 01:27:00 Test Item Value Reference Range Interpretation Comments POCT GLU (test code = 0813754036) 201 mg/dL 70-110 H Lab Interpretation (test code = Abnormal 77728-5) [facility] (for use with Heparin Practice Guideline). Note: Draw and Send all Lab STAT.2019-01-26 22:52:00 Test Item Value Reference Range Interpretation Comments APTT Patient (test code See_Comment H [Au tomated message] = 3173-2) The system [employer] generated this result transmitted ref erence range: 26 - 36 Seconds. The reference range was not used to int erpret this result as normal/abnormal . Lab Interpretation (test Abnormal code = 85705-1) [facility] ABDOMEN ACUTE [id number] 22:16:19 No acute cardiopulmonary or intra-abdominal abnormality. [...] reviewed this study and agree with the abovereport.[facility]2019-01-26 21:38:00 Test Item Value Reference Range Interpretation Comments POCT GLU (test code = 217 mg/dL 70-110 H 5553510370) DIANE (test code = DIANE) Notified Provider Lab Interpretation (test Abnormal code = 09079-3) [facility] WITH [id number] 19:27:00 Test Item Value Reference Range Interpretation Comments WBC (test code = See_Comment [Automated 4990-2) message] The sy stem which generated this result transmitted reference range : 4.20 - 10.70 10*3/?L. The reference range was not used to interpret this result as normal/abnormal . RBC (test code = See_Comment L [Automated 365-8) message] The sy stem which generated this [...] RDW-SD (test code = 42.5 fL 38.5-51.6 01763-0) RDW-CV (test code = 13.2 % 12.1-15.4 788-0) PLT (test code = See_Comment [Automated 777-3) message] The sy stem which generated this result transmitted reference range : 150 - 328 10*3/ ?L. The reference r batsheva was not used to interpret this result as normal/abnormal . MPV (test code = 10.4 fL 9.8-13 16833-3) NRBC/100 WBC (test See_Comment [Automat ed code = 2029033319) message] The system which generated this result transmitted reference range : 0.0 - 10.0 /100 WBCs. The refer ence range was not u sed to interpret th is result as normal/abnormal . NRBC x10^3 (test code <0.01 See_Comment [Auto mated = 1684064789) message] The s ystem which generated this result transmitted reference range : 10*3/?L. The reference range was not used to interpret this result as normal/abnormal . GRAN MAT (NEUT) % 57.7 % (test code = 770-8) IMM GRAN % (test code 0.20 % = 4042279296) LYMPH % (test code = 29.2 % 736-9) MONO % (test code = 7.8 % 5905-5) EOS % (test code = 4.6 % 713-8) BASO % (test code = 0.5 % 706-2) GRAN MAT x10^3(ANC) 3.62 10*3/uL 1.99-6.95 (test code = 2566133200) IMM GRAN x10^3 (test <0.03 0-0.06 code = 3313251595) LYMPH x10^3 (test code 1.83 10*3/uL 1.09-3.23 = 731-0) MONO x10^3 (test code 0.49 10*3/uL 0.36-1.02 = 742-7) EOS x10^3 (test code = 0.29 10*3/uL 0.06-0.53 711-2) BASO x10^3 (test code 0.03 10*3/uL 0.01-0.09 = 704-7) Lab Interpretation Abnormal (test code = 68083-3) [facility] GLUCOSE (AUTOMATED)2019-01-26 16:32:00 Test Item Value Reference Range Interpretation Comments POCT GLU (test code = 243 mg/dL 70-110 H 5368488351) DIANE (test code = DIANE) Notified Provider Lab Interpretation (test Abnormal code = 98754-2) [facility] GLUCOSE (AUTOMATED)2019-01-26 13:44:00 Test Item Value Reference Range Interpretation Comments POCT GLU (test code = 8459112861) 270 mg/dL 70-110 H Lab Interpretation (test code = Abnormal 96092-2) [facility] Metabolic Panel (NA, K, CL, CO2, GLUCOSE, BUN, CREATININE, CA)2019-01-26 12:15:00 Test Item Value Reference Range Interpretation Comments NA (test code = 138 mmol/L 135-145 9176795525) K (test code = 4.4 mmol/L 3.5-5 4481671258) CL (test code = 105 mmol/L 98-108 4010228653) CO2 TOTAL (test code = 24 mmol/L 23-31 8351141987) AGAP (test code = 2-16 5917179799) BUN (test code = 12 mg/dL 7-23 9474984786) GLUCOSE (test code = 232 mg/dL 70-110 H 0733628044) CREATININE (test code = 0.60 mg/dL 0.6-1.25 0026088173) CALCIUM (test code = 8.9 mg/dL 8.6-10.6 7666015620) eGFR Calculation mL/min/1.73m2 (Non-) (test code = 3738295274) eGFR Calculation mL/min/1.73m2 () (test code = 1397583837) DIANE (test code = DIANE) Association of [...] tests). Lab Interpretation Abnormal (test code = 35720-9) [facility] TexasMagnesium [id number] 12:15:00 Test Item Value Reference Range Interpretation Comments MAGNESIUM (test code = 5896967182) 1.9 mg/dL 1.7-2.4 Lab Interpretation (test code = Normal 49487-0) [facility] (for use with Heparin Practice Guideline). Note: Draw and Send all Lab STAT.2019-01-26 12:03:00 Test Item Value Reference Range Interpretation Comments APTT Patient (test code See_Comment H [Au tomated message] = 3173-2) The system [employer] generated this result transmitted ref erence range: 26 - 36 Seconds. The reference range was not used to int erpret this result as normal/abnormal . Lab Interpretation (test Abnormal code = 51634-9) [facility] WITH [id number] 11:49:00 Test Item Value Reference Range Interpretation Comments WBC (test code = See_Comment [Automated 4390-2) message] The sy stem which generated this result transmitted reference range : 4.20 - 10.70 10*3/?L. The reference range was not used to interpret this result as normal/abnormal . RBC (test code = See_Comment L [Automated 669-8) message] The sy stem which generated this [...] RDW-SD (test code = 42.8 fL 38.5-51.6 94258-0) RDW-CV (test code = 13.2 % 12.1-15.4 788-0) PLT (test code = See_Comment [Automated 777-3) message] The sy stem which generated this result transmitted reference range : 150 - 328 10*3/ ?L. The reference r batsheva was not used to interpret this result as normal/abnormal . MPV (test code = 10.0 fL 9.8-13 34717-1) NRBC/100 WBC (test See_Comment [Automat ed code = 3913796048) message] The system which generated this result transmitted reference range : 0.0 - 10.0 /100 WBCs. The refer ence range was not u sed to interpret th is result as normal/abnormal . NRBC x10^3 (test code <0.01 See_Comment [Auto mated = 4613764142) message] The s ystem which generated this result transmitted reference range : 10*3/?L. The reference range was not used to interpret this result as normal/abnormal . GRAN MAT (NEUT) % 58.2 % (test code = 770-8) IMM GRAN % (test code 0.30 % = 1081266590) LYMPH % (test code = 28.4 % 736-9) MONO % (test code = 8.0 % 5905-5) EOS % (test code = 4.8 % 713-8) BASO % (test code = 0.3 % 706-2) GRAN MAT x10^3(ANC) 3.39 10*3/uL 1.99-6.95 (test code = 9791512529) IMM GRAN x10^3 (test <0.03 0-0.06 code = 6477989377) LYMPH x10^3 (test code 1.66 10*3/uL 1.09-3.23 = 731-0) MONO x10^3 (test code 0.47 10*3/uL 0.36-1.02 = 742-7) EOS x10^3 (test code = 0.28 10*3/uL 0.06-0.53 711-2) BASO x10^3 (test code <0.03 0.01-0.09 = 704-7) Lab Interpretation Abnormal (test code = 66555-1) [facility] GLUCOSE (AUTOMATED)2019-01-26 01:54:00 Test Item Value Reference Range Interpretation Comments POCT GLU (test code = 4762423876) 213 mg/dL 70-110 H Lab Interpretation (test code = Abnormal 73835-5) [facility] (for use with Heparin Practice Guideline). Note: Draw and Send all Lab STAT.2019-01-25 23:30:00 Test Item Value Reference Range Interpretation Comments APTT Patient (test code See_Comment H [Au tomated message] = 3173-2) The system [employer] generated this result transmitted ref erence range: 26 - 36 Seconds. The reference range was not used to int erpret this result as normal/abnormal . Lab Interpretation (test Abnormal code = 15521-4) [facility] GLUCOSE (AUTOMATED)2019-01-25 21:55:00 Test Item Value Reference Range Interpretation Comments POCT GLU (test code = 104 mg/dL 70-110 0887886815) DIANE (test code = DIANE) Notified Provider Lab Interpretation (test Normal code = 11307-1) [facility] GLUCOSE (AUTOMATED)2019-01-25 17:19:00 Test Item Value Reference Range Interpretation Comments POCT GLU (test code = 150 mg/dL 70-110 H 1672455952) DIANE (test code = DIANE) Notified Provider Lab Interpretation (test Abnormal code = 40079-3) [facility] GLUCOSE (AUTOMATED)2019-01-25 12:45:00 Test Item Value Reference Range Interpretation Comments POCT GLU (test code = 195 mg/dL 70-110 H 9042301390) DIANE (test code = DIANE) Notified Provider Lab Interpretation (test Abnormal code = 04153-0) [facility] (for use with Heparin Practice Guideline). Note: Draw and Send all Lab STAT.2019-01-25 12:29:00 Test Item Value Reference Range Interpretation Comments APTT Patient (test code >150 See_Comment HH [Au tomated message] = 3173-2) The system [employer] generated this result transmitted ref erence range: 26 - 36 Seconds. The reference range was not used to int erpret this result as normal/abnormal . Lab Interpretation (test Abnormal code = 85152-0) [facility] [id number] 10:41:00 Test Item Value Reference Range Interpretation Comments TROPONIN I (test 0.092 ng/mL See_Comment H [Automated code = 0045671299) message] The system which generated this result [...] ? Lab Interpretation Abnormal (test code = 48092-2) [facility] [id number] 06:38:00 Test Item Value Reference Range Interpretation Comments TROPONIN I (test 0.084 ng/mL See_Comment H [Automated code = 8617893513) message] The system which generated this result [...] ? Lab Interpretation Abnormal (test code = 49740-3) [facility] Metabolic Panel (NA, K, CL, CO2, GLUCOSE, BUN, CREATININE, CA)2019-01-25 06:14:00 Test Item Value Reference Range Interpretation Comments NA (test code = 138 mmol/L 135-145 3166576775) K (test code = 3.2 mmol/L 3.5-5 L 9602877127) CL (test code = 105 mmol/L 98-108 5679715905) CO2 TOTAL (test code = 24 mmol/L 23-31 8222874067) AGAP (test code = 2-16 3110626738) BUN (test code = 17 mg/dL 7-23 2412826383) GLUCOSE (test code = 197 mg/dL 70-110 H 4519008601) CREATININE (test code = 0.81 mg/dL 0.6-1.25 7142658948) CALCIUM (test code = 8.8 mg/dL 8.6-10.6 5018936850) eGFR Calculation mL/min/1.73m2 (Non-) (test code = 7062696603) eGFR Calculation mL/min/1.73m2 () (test code = 9864328311) DIANE (test code = DIANE) Association of [...] tests). Lab Interpretation Abnormal (test code = 20202-4) [facility] TexasMagnesium [id number] 06:14:00 Test Item Value Reference Range Interpretation Comments MAGNESIUM (test code = 1445023844) 1.6 mg/dL 1.7-2.4 L Lab Interpretation (test code = Abnormal 12834-8) [facility] WITH [id number] 05:47:00 Test Item Value Reference Range Interpretation Comments WBC (test code = See_Comment [Automated 6690-2) message] The sy stem which generated this result transmitted reference range : 4.20 - 10.70 10*3/?L. The reference range was not used to interpret this result as normal/abnormal . RBC (test code = See_Comment L [Automated 599-8) message] The sy stem which generated this [...] RDW-SD (test code = 41.7 fL 38.5-51.6 87159-4) RDW-CV (test code = 13.2 % 12.1-15.4 788-0) PLT (test code = See_Comment [Automated 777-3) message] The sy stem which generated this result transmitted reference range : 150 - 328 10*3/ ?L. The reference r batsheva was not used to interpret this result as normal/abnormal . MPV (test code = 9.9 fL 9.8-13 80565-3) NRBC/100 WBC (test See_Comment [Automat ed code = 5722700369) message] The system which generated this result transmitted reference range : 0.0 - 10.0 /100 WBCs. The refer ence range was not u sed to interpret th is result as normal/abnormal . NRBC x10^3 (test code <0.01 See_Comment [Auto mated = 2036391234) message] The s ystem which generated this result transmitted reference range : 10*3/?L. The reference range was not used to interpret this result as normal/abnormal . GRAN MAT (NEUT) % 46.4 % (test code = 770-8) IMM GRAN % (test code 0.30 % = 2524335633) LYMPH % (test code = 39.7 % 736-9) MONO % (test code = 7.6 % 5905-5) EOS % (test code = 5.5 % 713-8) BASO % (test code = 0.5 % 706-2) GRAN MAT x10^3(ANC) 2.81 10*3/uL 1.99-6.95 (test code = 4048650802) IMM GRAN x10^3 (test <0.03 0-0.06 code = 0031444623) LYMPH x10^3 (test code 2.40 10*3/uL 1.09-3.23 = 731-0) MONO x10^3 (test code 0.46 10*3/uL 0.36-1.02 = 742-7) EOS x10^3 (test code = 0.33 10*3/uL 0.06-0.53 711-2) BASO x10^3 (test code 0.03 10*3/uL 0.01-0.09 = 704-7) Lab Interpretation Abnormal (test code = 65771-0) [facility]2019-09-06 04:53:00 Test Item Value Reference Range Interpretation Comments MAGNESIUM (test code = 6030313510) 1.6 mg/dL 1.7-2.4 L Lab Interpretation (test code = Abnormal 65384-9) [facility]CT ABDOMEN PELVIS W [id number] 03:04:22 1.?No acute intra-abdominal abnormality. 2.?Status post cholecystectomy. 3.?Hepatic steatosis. 4.?The right femoral and left iliac veins are not opacified with contrast,these findings are similar to the 09/25/2018 comparison study. Findings areconcerning for deep vein thrombosis, and correlation with ultrasound isrecommended. IErma MD., have reviewed this study and [...] deep vein thrombosis,and correlation with ultrasound isrecommended.I, Radha Limon MD., have reviewed this study and agree with the abovereport.[facility]2019-01-24 23:34:00 Test Item Value Reference Range Interpretation Comments POCT GLU (test code = 9315526577) 236 mg/dL 70-110 H Lab Interpretation (test code = Abnormal 57374-3) [facility] TexasTROPONIN [id number] 22:31:00 Test Item Value Reference Range Interpretation Comments TROPONIN I (test 0.096 ng/mL See_Comment H [Automated code = 4374029381) message] The system which generated this result [...] ? Lab Interpretation Abnormal (test code = 19418-9) [facility] (NA, K, CL, CO2, GLUCOSE, BUN, CREATININE, CA)2019-01-24 22:20:00 Test Item Value Reference Range Interpretation Comments NA (test code = 143 mmol/L 135-145 2496036657) K (test code = 4.1 mmol/L 3.5-5 0264260112) CL (test code = 106 mmol/L 98-108 7489999536) CO2 TOTAL (test code = 22 mmol/L 23-31 L 6756670474) AGAP (test code = 2-16 5114941152) BUN (test code = 17 mg/dL 7-23 0999513227) GLUCOSE (test code = 299 mg/dL 70-110 H 6345470468) CREATININE (test code = 1.03 mg/dL 0.6-1.25 2065618575) CALCIUM (test code = 9.9 mg/dL 8.6-10.6 5614871710) eGFR Calculation mL/min/1.73m2 (Non-) (test code = 1744104321) eGFR Calculation mL/min/1.73m2 () (test code = 1849082666) DIANE (test code = DIANE) Association of [...] tests). Lab Interpretation Abnormal (test code = 43087-1) [facility] (ALB, T.PRO, BILI T, BU/BC, ALT, AST, ALK PHOS)2019-01-24 22:20:00 Test Item Value Reference Range Interpretation Comments TOTAL BILI (test code = 6847591140) 0.8 mg/dL 0.1-1.1 BILI UNCON (test code = 4628514595) 0.6 mg/dL 0.1-1.1 BILI CONJ (test code = 2661839905) 0.0 mg/dL 0-0.3 T PROTEIN (test code = 0349069148) 7.6 g/dL 6.3-8.2 ALBUMIN (test code = 3418817841) 4.5 g/dL 3.5-5 ALK PHOS (test code = 5528526127) 136 U/L 34-122 H ALT(SGPT) (test code = 1407157683) 31 U/L 9-51 AST(SGOT) (test code = 4651701005) 43 U/L 13-40 H Lab Interpretation (test code = Abnormal 86554-4) [facility] TexasLipase Xmtke8054-02-15 22:20:00 Test Item Value Reference Range Interpretation Comments LIPASE (test code = 6848277274) 168 U/L 0-220 Lab Interpretation (test code = Normal 23060-2) [facility]aPTT2019-09-05 22:18:00 Test Item Value Reference Range Interpretation Comments APTT Patient (test See_Comment [Automat ed code = 3173-2) message] The system which generated this result transmitted reference range : 23 - 38 Seconds . The reference range was not used to interpr et this result as normal/abnormal . DIANE (test code = DIANE) The [facility] patient population mean normal value for aPTT is 30 seconds. Lab Interpretation Normal (test code = 82808-5) [facility] TexasXR CHEST 1 [id number] 22:17:46 No acute cardiopulmonary process. Stable cardiomegaly. [...] the right upper quadrant.IMPRESSIONNo acute cardiopulmonary process.Stable cardiomegaly.Radha Franco MD., have reviewed this study and agree with the abovereport.[facility] TexasProthrombin Time (PT) / [id number] 22:16:00 Test Item Value Reference Range Interpretation Comments PROTIME PATIENT (test See_Comment [Auto mated message] code = 5964-2) The system [employer] generated this result transmitted ref erence range: 12.0 - 1 4.7 Seconds. The re ference range was not u sed to interpret this result as normal/abnor mal. INR (test code = 6301-6) Nor mal INR <1.1; Warfarin Therap eutic range 2.0 to 3. 0 or 2.5 to 3.5, dep ending upon the indica tions. Lab Interpretation (test Normal code = 28576-1) [facility]CB WITH [id number] 22:07:00 Test Item Value Reference Range Interpretation [...] RDW-SD (test code = 41.2 fL 38.5-51.6 56961-0) RDW-CV (test code = 13.0 % 12.1-15.4 788-0) PLT (test code = See_Comment [Automated 777-3) message] The sy stem which generated this result transmitted reference range : 150 - 328 10*3/ ?L. The reference r batsheva was not used to interpret this result as normal/abnormal . MPV (test code = 10.2 fL 9.8-13 86445-5) NRBC/100 WBC (test See_Comment [Automat ed code = 1801069762) message] The system which generated this result transmitted reference range : 0.0 - 10.0 /100 WBCs. The refer ence range was not u sed to interpret th is result as normal/abnormal . NRBC x10^3 (test code <0.01 See_Comment [Auto mated = 9949339262) message] The s ystem which generated this result transmitted reference range : 10*3/?L. The reference range was not used to interpret this result as normal/abnormal . GRAN MAT (NEUT) % 49.3 % (test code = 770-8) IMM GRAN % (test code 0.30 % = 3719860000) LYMPH % (test code = 37.0 % 736-9) MONO % (test code = 9.5 % 5905-5) EOS % (test code = 3.6 % 713-8) BASO % (test code = 0.3 % 706-2) GRAN MAT x10^3(ANC) 3.15 10*3/uL 1.99-6.95 (test code = 0585459421) IMM GRAN x10^3 (test <0.03 0-0.06 code = 8508843412) LYMPH x10^3 (test code 2.37 10*3/uL 1.09-3.23 = 731-0) MONO x10^3 (test code 0.61 10*3/uL 0.36-1.02 = 742-7) EOS x10^3 (test code = 0.23 10*3/uL 0.06-0.53 711-2) BASO x10^3 (test code <0.03 0.01-0.09 = 704-7) Lab Interpretation Abnormal (test code = 54758-0) [facility]XR CHEST 1 [id number] 18:49:30 No acute cardiopulmonary abnormality. IElissa MD., have reviewed this study and agree [...] the right upper quadrant of the abdomen. [facility], Radiant Results Inft User - 01/19/2019 1:51 [...] quadrant of the abdomen. IMPRESSIONNo acute cardiopulmonary abnormality.I, Pacheco Casillas MD., have reviewed this study and agree with the abovereport.[facility] (NA, K, CL, CO2, GLUCOSE, BUN, CREATININE, CA)2019-01-19 11:42:00 Test Item Value Reference Range Interpretation Comments NA (test code = 140 mmol/L 135-145 7903972446) K (test code = 4.1 mmol/L 3.5-5 6391918009) CL (test code = 109 mmol/L 98-108 H 9623297254) CO2 TOTAL (test code = 24 mmol/L 23-31 6560867633) AGAP (test code = 2-16 3931854671) BUN (test code = 11 mg/dL 7-23 9233524281) GLUCOSE (test code = 232 mg/dL 70-110 H 5636399855) CREATININE (test code = 0.53 mg/dL 0.6-1.25 L 3788604097) CALCIUM (test code = 8.7 mg/dL 8.6-10.6 4982948857) eGFR Calculation mL/min/1.73m2 (Non-) (test code = 8806393121) eGFR Calculation mL/min/1.73m2 () (test code = 8045424160) DIANE (test code = DIANE) Association of [...] tests). Lab Interpretation Abnormal (test code = 83658-1) [facility] TexasMAGNESIUM2019-08-31 11:42:00 Test Item Value Reference Range Interpretation Comments MAGNESIUM (test code = 1045444486) 2.0 mg/dL 1.7-2.4 Lab Interpretation (test code = Normal 55681-9) [facility] GLUCOSE (AUTOMATED)2019-01-19 08:50:00 Test Item Value Reference Range Interpretation Comments POCT GLU (test code = 2530288958) 226 mg/dL 70-110 H Lab Interpretation (test code = Abnormal 14511-5) [facility] GLUCOSE (AUTOMATED)2019-01-19 04:18:00 Test Item Value Reference Range Interpretation Comments POCT GLU (test code = 8016301165) 225 mg/dL 70-110 H Lab Interpretation (test code = Abnormal 63989-9) [facility] ACT LOW [id number] 02:35:00 Test Item Value Reference Range Interpretation Comments ACTLR (test code = See_Comment H [Automat ed message] 8441405907) The system [employer] generated this result transmitted ref erence range: 89 - 169 Seconds. The reference range was not used to int erpret this result as normal/abnormal . Lab Interpretation (test Abnormal code = 19605-2) [facility] GLUCOSE (AUTOMATED)2019-01-18 21:01:00 Test Item Value Reference Range Interpretation Comments POCT GLU (test code = 1854737309) 198 mg/dL 70-110 H Lab Interpretation (test code = Abnormal 20130-6) [facility] TexasHEPATIC FUNCTION PANEL (48595) (ALB,T.PRO,BILI T,BU/BC,ALT,AST,ALK PHOS)2019-01-18 16:11:00 Test Item Value Reference Range Interpretation Comments TOTAL BILI (test code = 0.5 mg/dL 0.1-1.1 9131013284) BILI UNCON (test code = 0.2 mg/dL 0.1-1.5 4954035533) BILI CONJ (test code = 0.0 mg/dL 0-0.3 9421631941) T PROTEIN (test code = 6.3 g/dL 6.3-8.2 9271271995) ALBUMIN (test code = 3.3 g/dL 3.5-5 L 5772462753) ALK PHOS (test code = 96 U/L 34-122 Slight hemolysis 9185862907) ALT(SGPT) (test code = 79 U/L 9-51 H Sligh t hemolysis 6448340522) AST(SGOT) (test code = 119 U/L 13-40 H Sligh t hemolysis 1157335753) Lab Interpretation (test Abnormal code = 74155-4) [facility] GLUCOSE (AUTOMATED)2019-01-18 16:09:00 Test Item Value Reference Range Interpretation Comments POCT GLU (test code = 8960771721) 181 mg/dL 70-110 H Lab Interpretation (test code = Abnormal 50857-3) [facility] GLUCOSE (AUTOMATED)2019-01-18 13:27:00 Test Item Value Reference Range Interpretation Comments POCT GLU (test code = 0731159740) 212 mg/dL 70-110 H Lab Interpretation (test code = Abnormal 96593-0) [facility] TexasTROP[facility]IN [id number] 09:46:00 Test Item Value Reference Range Interpretation Comments TROPONIN I (test 0.011 ng/mL See_Comment [Automated code = 9742765549) message] The system which generated this result [...] ? Lab Interpretation Normal (test code = 15000-2) [facility]2019-08-30 09:33:00 Test Item Value Reference Range Interpretation Comments MAGNESIUM (test code = 1.8 mg/dL 1.7-2.4 Sligh t hemolysis 0202109504) Lab Interpretation (test Normal code = 27860-5) [facility] TexasPROTHROMBIN TIME / [id number] 09:22:00 Test Item Value Reference Range Interpretation Comments PROTIME PATIENT (test See_Comment [Auto mated message] code = 5964-2) The system [employer] generated this result transmitted ref erence range: 10.1 - 1 2.6 Seconds. The re ference range was not u sed to interpret this result as normal/abnor mal. INR (test code = 6301-6) Nor mal INR <1.1; Warfarin Therap eutic range 2.0 to 3. 0 or 2.5 to 3.5, dep ending upon the indica tions. Lab Interpretation (test Normal code = 78725-2) [facility] GLUCOSE (AUTOMATED)2019-01-18 08:24:00 Test Item Value Reference Range Interpretation Comments POCT GLU (test code = 3179589374) 244 mg/dL 70-110 H Lab Interpretation (test code = Abnormal 61142-4) [facility] GLUCOSE (AUTOMATED)2019-01-18 05:09:00 Test Item Value Reference Range Interpretation Comments POCT GLU (test code = 7154512240) 232 mg/dL 70-110 H Lab Interpretation (test code = Abnormal 04266-6) [facility] GLUCOSE (AUTOMATED)2019-01-18 00:54:00 Test Item Value Reference Range Interpretation Comments POCT GLU (test code = 9138147514) 258 mg/dL 70-110 H Lab Interpretation (test code = Abnormal 82785-6) [facility] [id number] 21:56:00 Test Item Value Reference Range Interpretation Comments TROPONIN I (test 0.016 ng/mL See_Comment [Automated code = 9374615930) message] The system which generated this result [...] ? Lab Interpretation Normal (test code = 41320-0) [facility] 21:08:00 Test Item Value Reference Range Interpretation Comments POCT GLU (test code = 9011241808) 209 mg/dL 70-110 H Lab Interpretation (test code = Abnormal 41818-7) [facility] [id number] 16:50:00 Test Item Value Reference Range Interpretation Comments TROPONIN I (test 0.017 ng/mL See_Comment [Automated code = 2283530702) message] The system which generated this result [...] ? Lab Interpretation Normal (test code = 87352-7) [facility] GLUCOSE (AUTOMATED)2019-01-17 16:44:00 Test Item Value Reference Range Interpretation Comments POCT GLU (test code = 6685262018) 204 mg/dL 70-110 H Lab Interpretation (test code = Abnormal 69339-2) [facility] GLUCOSE (AUTOMATED)2019-01-17 12:49:00 Test Item Value Reference Range Interpretation Comments POCT GLU (test code = 7108364715) 259 mg/dL 70-110 H Lab Interpretation (test code = Abnormal 45022-3) [facility] GLUCOSE (AUTOMATED)2019-01-17 10:37:00 Test Item Value Reference Range Interpretation Comments POCT GLU (test code = 5679129248) 312 mg/dL 70-110 H Lab Interpretation (test code = Abnormal 23342-2) [facility] [id number] 10:31:00 Test Item Value Reference Range Interpretation Comments TROPONIN I (test 0.024 ng/mL See_Comment [Automated code = 3675920967) message] The system which generated this result [...] ? Lab Interpretation Normal (test code = 86656-3) [facility]YCOSYLATED HEMOGLOBIN (A1C)2019-01-17 09:54:00 Test Item Value Reference [...] Indicated Lab Interpretation Abnormal (test code = 16337-2) [facility] TexasTroponin I0578-44-49 05:57:00 Test Item Value Reference Range Interpretation Comments TROPONIN I (test 0.024 ng/mL See_Comment [Automated code = 7512381984) message] The system which generated this result [...] ? Lab Interpretation Normal (test code = 08192-6) [facility] (NA, K, CL, CO2, GLUCOSE, BUN, CREATININE, CA)2019-01-17 05:47:00 Test Item Value Reference Range Interpretation Comments NA (test code = 138 mmol/L 135-145 4661348153) K (test code = 3.6 mmol/L 3.5-5 7604443064) CL (test code = 102 mmol/L 98-108 9065898039) CO2 TOTAL (test code = 21 mmol/L 23-31 L 7579464327) AGAP (test code = 2-16 2745328248) BUN (test code = 24 mg/dL 7-23 H 8326057227) GLUCOSE (test code = 421 mg/dL 70-110 H 5155031641) CREATININE (test code = 0.79 mg/dL 0.6-1.25 7433112512) CALCIUM (test code = 10.2 mg/dL 8.6-10.6 2899997742) eGFR Calculation mL/min/1.73m2 (Non-) (test code = 5940124876) eGFR Calculation mL/min/1.73m2 () (test code = 0339245515) DIANE (test code = DIANE) Association of [...] tests). Lab Interpretation Abnormal (test code = 12954-9) [facility] 1 Fett8568-54-31 05:28:06 No radiographic cardiopulmonary disease. RL: 5252 [...] structures are normal. IMPRESSIONNo radiographic cardiopulmonary disease.RL: 5252[facility] CBC WITH OKTXUCBRCGII6810-39-45 05:26:00 Test Item Value Reference Range Interpretation Comments WBC (test code = See_Comment [Automated 5841-2) message] The sy stem which generated this result transmitted reference range : 4.20 - 10.70 10*3/?L. The reference range was not used to interpret this result as normal/abnormal . RBC (test code = See_Comment [Automated 983-8) message] The sy stem which generated this [...] RDW-SD (test code = 39.6 fL 38.5-51.6 78928-4) RDW-CV (test code = 12.9 % 12.1-15.4 788-0) PLT (test code = See_Comment [Automated 777-3) message] The sy stem which generated this result transmitted reference range : 150 - 328 10*3/ ?L. The reference r batsheva was not used to interpret this result as normal/abnormal . MPV (test code = 10.3 fL 9.8-13 93399-4) NRBC/100 WBC (test See_Comment [Automat ed code = 4394986942) message] The system which generated this result transmitted reference range : 0.0 - 10.0 /100 WBCs. The refer ence range was not u sed to interpret th is result as normal/abnormal . NRBC x10^3 (test code <0.01 See_Comment [Auto mated = 1841609349) message] The s ystem which generated this result transmitted reference range : 10*3/?L. The reference range was not used to interpret this result as normal/abnormal . GRAN MAT (NEUT) % 51.5 % (test code = 770-8) IMM GRAN % (test code 0.50 % = 7964581085) LYMPH % (test code = 34.1 % 736-9) MONO % (test code = 10.4 % 5905-5) EOS % (test code = 3.1 % 713-8) BASO % (test code = 0.4 % 706-2) GRAN MAT x10^3(ANC) 3.88 10*3/uL 1.99-6.95 (test code = 2088271948) IMM GRAN x10^3 (test 0.04 10*3/uL 0-0.06 code = 5137006689) LYMPH x10^3 (test code 2.57 10*3/uL 1.09-3.23 = 731-0) MONO x10^3 (test code 0.78 10*3/uL 0.36-1.02 = 742-7) EOS x10^3 (test code = 0.23 10*3/uL 0.06-0.53 711-2) BASO x10^3 (test code 0.03 10*3/uL 0.01-0.09 = 704-7) Lab Interpretation Abnormal (test code = 03423-8) [facility] TexasCOMPREHENSIVE METABOLIC JSNII2186-10-71 18:02:00 Test Item Value Reference Range Interpretation [...] 50-136 H TOTAL (test code = ALKP) MJXVSUU1084-51-78 18:02:00 Test Item Value Reference Range Interpretation Comments AMYLASE (test code = SERGIO) 82 Unit/L 25-115 N JUYRGV5651-71-48 18:02:00 Test Item Value Reference Range Interpretation Comments LIPASE (test code = LIP) 185 Unit/L 114-286 N COMPREHENSIVE METABOLIC CAAJA7590-45-56 17:56:00 Test Item Value Reference Range Interpretation [...] TOTAL Unit/L 50-136 (test code = ALKP) HGSWTLJ8902-61-25 17:56:00 Test Item Value Reference Range Interpretation Comments AMYLASE (test code = SERGIO) Unit/L 25-115 DZKBRV9313-27-34 17:56:00 Test Item Value Reference Range Interpretation Comments LIPASE (test code = LIP) 185 Unit/L 114-286 N CBC W/AUTO XPYT9802-84-46 17:46:00 Test Item Value Reference Range Interpretation [...] CRITERIA MDIFF) - CT ABD PELVIS W/O SOCQ5071-66-21 17:46:00 Name: ERNIE VANCE [facility] : 1960 Age/S: 58 / M [address] [facility] Unit #: [id number] Loc: [place] [address] Phys: Nila Chester MD Acct: [id number] Dis Date: Status: REG ER PHONE #: [phone] Exam Date: 01/03/2019 7360 FAX #: Reason: llq EXAMS: CPT: [id number] CT ABD PELVIS W/O CONT 72424 Location ofdictation: B2 CT abdomen and pelvis [...] 1 Signed Report (CONTINUED) Name: ERNIE VANCE [facility] : 1960 Age/S: 58 / M [address] [address] Unit #: [id number] Loc: [place] [address] Phys: Rochelle Chester MD Acct: [id number] Dis Date: Status: REG ER PHONE #: [phone] Exam Date: 01/03/2019 1739 FAX #: Reason: llq EXAMS: CPT: [id number] CT ABD PELVIS W/O CONT 36476 <Continued> at 1746 Reported and signed by: Renuka Willett M.D. CC: Nila Chester MD Technologist:Tavon JuradoRT(R)(CT)(MRI) CTDI: DLP: Trnscb Date/Time: 01/03/2019 (1746) [email or web address] Orig Print D/T: S: 01/03/2019 (7689) PAGE 2 Signed ReportBedside Fhrotyy7044-37-29 11:47:00 Test Item Value Reference Range Interpretation Comments Bedside Glucose (test code = 91959-0) 155 70-120 H Meter ID: [id number] [facility] 2017-10-27 08:31:00 Test Item Value Reference Range Interpretation Comments Sodium Level (test code = 2951-2) 139 136-145 [facility] Kdhxa4662-11-67 08:31:00 Test Item Value Reference Range Interpretation Comments Potassium Level (test code = 2823-3) 4.0 3.5-5.1 [facility] SystemChloride Gmmoq6071-98-02 08:31:00 Test Item Value Reference Range Interpretation Comments Chloride Level (test code = 2075-0) 106 98-107 [facility] SystemCarbon Dioxide Cvimy0649-10-00 08:31:00 Test Item Value Reference Range Interpretation Comments Carbon Dioxide Level (test code = -2027-9) [facility] SystemAnion Wgr2002-36-17 08:31:00 Test Item Value Reference Range Interpretation Comments Anion Gap (test code = 05385-5) 12.0 8-16 [facility] SystemBlood Urea Gbdxsujl2286-14-62 08:31:00 Test Item Value Reference Range Interpretation Comments Blood Urea Nitrogen (test code = 12-14 3094-0) [facility] SystemCreatinine2018-06-08 08:31:00 Test Item Value Reference Range Interpretation Comments Creatinine (test code = 2160-0) 0.72 0.72-1.25 [facility] SystemBUN/Creatinine Aaows3006-81-48 08:31:00 Test Item Value Reference Range Interpretation Comments BUN/Creatinine Ratio (test code = 11-13 3097-3) [facility] SystemEstimat Glomerular Filtration Rate 2017-10-27 08:31:00 Test Item Value Reference Range Interpretation Comments Estimat Glomerular Filtration Rate 60- >60 (test code = 43622-5) Ranges were taken from the National Kidney Disease Education Program and the National Kidney Foundation literature.Reference ranges:60 or greater: Kwofbi95- 59 (for 3 consecutive months): Chronic kidneydisease 15 or less: Kidney failure [facility] SystemGlucose Sjfce3876-64-28 08:31:00 Test Item Value Reference Range Interpretation Comments Glucose Level (test code = ETG4770) 195 74-118 H [facility] SystemCalcium Rfwqb0586-35-72 08:31:00 Test Item Value Reference Range Interpretation Comments Calcium Level (test code = 82756-1) 9.0 8.4-10.2 [facility] SystemWhite Blood Bstgd6206-53-53 08:12:00 Test Item Value Reference Range Interpretation Comments White Blood Count (test code = 6690-2) 6.06 4.8-10.8 [facility] SystemRed Blood Utlcp1516-52-99 08:12:00 Test Item Value Reference Range Interpretation Comments Red Blood Count (test code = 789-8) 4.22 4.3-5.7 L [facility] SystemHemoglobin2018-06-08 08:12:00 Test Item Value Reference Range Interpretation Comments Hemoglobin (test code = 60573-6) 12.5 14.0-18.0 L [facility] SystemHematocrit2018-06-08 08:12:00 Test Item Value Reference Range Interpretation Comments Hematocrit (test code = 4544-3) 36.2 38.2-49.6 L [facility] SystemMean Corpuscular Remxbj7353-18-61 08:12:00 Test Item Value Reference Range Interpretation Comments Mean Corpuscular Volume (test code = 85.8 81-99 787-2) [facility] SystemMean Corpuscular Fesixqeaty1539-15-57 08:12:00 Test Item Value Reference Range Interpretation Comments Mean Corpuscular Hemoglobin (test code 29.6 28-32 = 785-6) [facility] SystemMean Corpuscular Hemoglobin Concent 2017-10-27 08:12:00 Test Item Value Reference Range Interpretation Comments Mean Corpuscular Hemoglobin Concent 34.5 31-35 (test code = 786-4) [facility] SystemRed Cell Distribution Qtslu1031-88-21 08:12:00 Test Item Value Reference Range Interpretation Comments Red Cell Distribution Width (test code 14.2 11.7-14.4 = 26158-3) [facility] SystemPlatelet Bwsnf5308-46-69 08:12:00 Test Item Value Reference Range Interpretation Comments Platelet Count (test code = 777-3) 084 140360 [facility] SystemNeutrophils (%) (Auto)2017-10-27 08:12:00 Test Item Value Reference Range Interpretation Comments Neutrophils (%) (Auto) (test code = 51.2 38.7-80.0 98608-4) [facility] SystemLymphocytes (%) (Auto)2017-10-27 08:12:00 Test Item Value Reference Range Interpretation Comments Lymphocytes (%) (Auto) (test code = 33.7 18.0-39.1 736-9) [facility] SystemMonocytes (%) (Auto)2017-10-27 08:12:00 Test Item Value Reference Range Interpretation Comments Monocytes (%) (Auto) (test code = 9.1 4.4-11.3 5905-5) [facility] SystemEosinophils (%) (Auto)2017-10-27 08:12:00 Test Item Value Reference Range Interpretation Comments Eosinophils (%) (Auto) (test code = 4.8 0.0-6.0 713-8) [facility] SystemBasophils (%) (Auto)2017-10-27 08:12:00 Test Item Value Reference Range Interpretation Comments Basophils (%) (Auto) (test code = 0.7 0.0-1.0 706-2) [facility] SystemIM GRANULOCYTES %2017-10-27 08:12:00 Test Item Value Reference Range Interpretation Comments IM GRANULOCYTES % (test code = IM 0.5 0.0-1.0 GRANULOCYTES %) [facility] SystemNeutrophils # (Auto)2017-10-27 08:12:00 Test Item Value Reference Range Interpretation Comments Neutrophils # (Auto) (test code = 3.1 2.1-6.9 751-8) [facility] SystemLymphocytes # (Auto)2017-10-27 08:12:00 Test Item Value Reference Range Interpretation Comments Lymphocytes # (Auto) (test code = 2.0 1.0-3.2 87544-4) [facility] SystemMonocytes # (Auto)2017-10-27 08:12:00 Test Item Value Reference Range Interpretation Comments Monocytes # (Auto) (test code = 742-7) 0.6 0.2-0.8 [facility] SystemEosinophils # (Auto)2017-10-27 08:12:00 Test Item Value Reference Range Interpretation Comments Eosinophils # (Auto) (test code = 0.3 0.0-0.4 711-2) [facility] SystemBasophils # (Auto)2017-10-27 08:12:00 Test Item Value Reference Range Interpretation Comments Basophils # (Auto) (test code = 704-7) 0.0 0.0-0.1 [facility] SystemAbsolute Immature Granulocyte (auto 2017-10-27 08:12:00 Test Item Value Reference Range Interpretation Comments Absolute Immature Granulocyte (auto 0.03 0-0.1 (test code = Absolute Immature Granulocyte (auto) [facility] SystemCreatine Kinase [id number] 15:14:00 Test Item Value Reference Range Interpretation Comments Creatine Kinase MB (test code = 3.90 0-5.0 15283-9) [facility] SystemTroponin D3701-12-68 15:14:00 Test Item Value Reference Range Interpretation Comments Troponin I (test code = ENK4107) 0.054 0-0.300 [facility] SystemCreatine Pcjlty7352-65-43 15:07:00 Test Item Value Reference Range Interpretation Comments Creatine Kinase (test code = 2157-6) 297 30-200 H [facility] SystemHemoglobin A1c Nqhzvsf6613-95-51 08:04:00 Test Item Value Reference Range Interpretation Comments Hemoglobin A1c Percent (test code = 12.6 4.0-7.0 H Hemoglobin A1c Percent) [facility] SystemCholesterol Mgldw5631-72-05 06:57:00 Test Item Value Reference Range Interpretation Comments Cholesterol Level (test code = 2093-3) 239 0-199 H Less than 200 mg/dL Low Twyt256 - 239 mg/dL Borderline Agga942 mg/dl and greaterHigh RiskDeTar Healthcare SystemLDL Cholesterol 2017-10-24 06:57:00 Test Item Value Reference Range Interpretation Comments LDL Cholesterol (test code = 2089-1) 164 60-130 H [facility] SystemHDL Ihqntvzlgeg8977-85-52 06:57:00 Test Item Value Reference Range Interpretation Comments HDL Cholesterol (test code = 2085-9) 35 40-60 L [facility] SystemCholesterol/HDL Xpssf9606-93-49 06:57:00 Test Item Value Reference Range Interpretation Comments Cholesterol/HDL Ratio (test code = 6.8 3.9-4.7 H 9830-1) [facility] SystemTriglycerides Exioq7571-93-77 06:57:00 Test Item Value Reference Range Interpretation Comments Triglycerides Level (test code = 200 0-149 H 2571-8) [facility] SystemUrine Opiates Xcsqyf0450-02-51 16:18:00 Test Item Value Reference Range Interpretation Comments Urine Opiates Screen (test code = NEGATIVE NEGATIVE 08937-5) [facility] SystemUrine Barbiturates Driyat3295-79-05 16:18:00 Test Item Value Reference Range Interpretation Comments Urine Barbiturates Screen (test code NEGATIVE NEGATIVE = 993928635) [facility] SystemUrine Phencyclidine Proggs8927-60-77 16:18:00 Test Item Value Reference Range Interpretation Comments Urine Phencyclidine Screen (test NEGATIVE NEGATIVE code = 55158-1) [facility] SystemUrine Amphetamines Gtbitw1827-51-18 16:18:00 Test Item Value Reference Range Interpretation Comments Urine Amphetamines Screen (test code NEGATIVE NEGATIVE = 71324-2) [facility] SystemUrine Methamphetamines Dsjeij0745-18-27 16:18:00 Test Item Value Reference Range Interpretation Comments Urine Methamphetamines Screen (test NEGATIVE NEGATIVE code = Urine Methamphetamines Screen) [facility] SystemUrine Benzodiazepines Uemlzb1389-98-74 16:18:00 Test Item Value Reference Range Interpretation Comments Urine Benzodiazepines Screen (test NEGATIVE NEGATIVE code = 38756-8) [facility] SystemUrine Cocaine Tcrscp4497-40-25 16:18:00 Test Item Value Reference Range Interpretation Comments Urine Cocaine Screen (test code = NEGATIVE NEGATIVE 3398-5) [facility] SystemUrine Cannabinoids Pcijvd2868-60-54 16:18:00 Test Item Value Reference Range Interpretation Comments Urine Cannabinoids Screen (test code NEGATIVE NEGATIVE = 07341-2) THESE RESULTS ARE FOR MEDICAL TREATMENT ONLYTHIS REPORT CONTAINS UNCONFIRMED SCREENING RESULTS*POSITIVE RESULTS WILL BE CONFIRMED BY REFERENCE LAB UPON REQUEST CUT-OFFDRUG CLASS CONCENTRATION ng/mLAmphetamines 1000Met hamphetamines 1000Cocaine 300Opiate 300Phencyclidine 25Cannabinoid 50Barbiturates 300Benzodiazepine 300Methadone 300[facility] SystemUrine Methadone Mattvh2555-85-49 16:18:00 Test Item Value Reference Range Interpretation Comments Urine Methadone Screen (test code = NEGATIVE NEGATIVE 71787-8) THESE RESULTS ARE FOR MEDICAL TREATMENT ONLYTHIS REPORT CONTAINS UNCONFIRMED SCREENING RESULTS*POSITIVE RESULTS WILL BE CONFIRMED BY REFERENCE LAB UPON REQUEST CUT-OFFDRUG CLASS CONCENTRATION ng/mLAmphetamines 1000Met hamphetamines 1000Cocaine Metabolite 300Opiate 300Phencyclidine 25Cannabinoid 50Barbiturates 300Benzodiazepine 300Methadone 300[facility] SystemProthrombin Vwmj5644-68-02 14:13:00 Test Item Value Reference Range Interpretation Comments Prothrombin Time (test code = 5902-2) 13.6 11.9-14.5 [facility] SystemProthromb Time International Ratio 2017-10-23 14:13:00 Test Item Value Reference Range Interpretation Comments Prothromb Time International Ratio 1.13 (test code = 6301-6) Oral Anticoagulant Therapy INR Values:1. Low Intensity Therapy 1.5 - 2.02. Moderate IntensityTherapy 2.0 - 3.03. High Intensity Therapy(1) 2.5 - 3.54. High Intensity Therapy(2) 3.0 - 4.05. Panic Value INR > 5.0[facility] SystemActivated Partial Thromboplast Time 2017-10-23 14:13:00 Test Item Value Reference Range Interpretation Comments Activated Partial Thromboplast Time 27.6 23.8-35.5 (test code = 46758-3) [facility] SystemTotal Jcensloqg4422-70-37 14:10:00 Test Item Value Reference Range Interpretation Comments Total Bilirubin (test code = 1975-2) 0.6 0.2-1.2 [facility] SystemAspartate Amino Transf (AST/SGOT) 2017-10-23 14:10:00 Test Item Value Reference Range Interpretation Comments Aspartate Amino Transf (AST/SGOT) (test 36 5-34 H code = Aspartate Amino Transf (AST/SGOT)) [facility] SystemAlanine Aminotransferase (ALT/SGPT) 2017-10-23 14:10:00 Test Item Value Reference Range Interpretation Comments Alanine Aminotransferase (ALT/SGPT) 34 0-55 (test code = 1742-6) [facility] Hfwmxgt3345-58-90 14:10:00 Test Item Value Reference Range Interpretation Comments Total Protein (test code = 2885-2) 7.3 6.5-8.1 [facility] SystemAlbumin2018-06-04 14:10:00 Test Item Value Reference Range Interpretation Comments Albumin (test code = 1751-7) 4.0 3.5-5.0 [facility] SystemGlobulin2018-06-04 14:10:00 Test Item Value Reference Range Interpretation Comments Globulin (test code = 71145-4) 3.3 2.3-3.5 [facility] SystemAlbumin/Globulin Jfoof9299-03-12 14:10:00 Test Item Value Reference Range Interpretation Comments Albumin/Globulin Ratio (test code = 1.2 0.8-2.0 1759-0) [facility] SystemAlkaline Nonlcfqpyeb3846-90-29 14:10:00 Test Item Value Reference Range Interpretation Comments Alkaline Phosphatase (test code = 109 40-150 6768-6) [facility] SystemB-Type Natriuretic Kpjwzrr4492-08-83 14:10:00 Test Item Value Reference Range Interpretation Comments B-Type Natriuretic Peptide (test code = 92.8 0-100 21410-6) [facility] SystemAmylase Cmstp5589-00-65 14:10:00 Test Item Value Reference Range Interpretation Comments Amylase Level (test code = 1798-8) 126 25-125 H [facility] SystemLipase2018-06-04 14:10:00 Test Item Value Reference Range Interpretation Comments Lipase (test code = 3040-3) 98 8-78 H [facility] SystemD-Dimer Quantitative (PE/DVT)2017-10-23 14:02:00 Test Item Value Reference Range Interpretation Comments D-Dimer Quantitative (PE/DVT) (test 0.49 0.00-0.45 H code = 53573-2) [facility] SystemDirect Voayxscjf3285-57-70 13:47:00 Test Item Value Reference Range Interpretation Comments Direct Bilirubin (test code = 32733-3) 0.2 0.0-5.0 [facility] SystemMagnesium Chzfe0162-22-59 06:52:00 Test Item Value Reference Range Interpretation Comments Magnesium Level (test code = 60997-0) 1.5 1.3-2.1 [facility] SystemUrine RVF6979-91-49 05:09:00 Test Item Value Reference Range Interpretation Comments Urine WBC (test code = 5821-4) NONE 0-5 [facility] SystemU[facility] ZFQ4653-28-11 05:09:00 Test Item Value Reference Range Interpretation Comments Urine RBC (test code = 62022-3) NONE 0-5 [facility] SystemU[facility] Pzeuityw1282-91-75 05:09:00 Test Item Value Reference Range Interpretation Comments Urine Bacteria (test code = 50018-4) NONE NONE [facility] SystemUrine Epithelial Yimys8001-67-27 05:09:00 Test Item Value Reference Range Interpretation Comments Urine Epithelial Cells (test code = NONE NONE 41951-9) [facility] SystemU[facility] Ikvhk5035-64-80 04:46:00 Test Item Value Reference Range Interpretation Comments Urine Color (test code = 5778-6) YELLOW YELLOW [facility] SystemUrine Bzqcktv6052-07-38 04:46:00 Test Item Value Reference Range Interpretation Comments Urine Clarity (test code = 40506-9) CLEAR CLEAR [facility] SystemUrine Specific Jzoynsa0712-76-43 04:46:00 Test Item Value Reference Range Interpretation Comments Urine Specific [place] (test code = 1.010 1.010-1.025 5811-5) [facility] SystemUrine sV0291-78-89 04:46:00 Test Item Value Reference Range Interpretation Comments Urine pH (test code = 94316-4) 8 5-7 H [facility] Leukocyte Xecljuqe5554-11-67 04:46:00 Test Item Value Reference Range Interpretation Comments Urine Leukocyte Esterase (test code NEGATIVE NEGATIVE = 5799-2) [facility] SystemU[facility] Xzufkti1527-46-33 04:46:00 Test Item Value Reference Range Interpretation Comments Urine Nitrite (test code = 39588-5) NEGATIVE NEGATIVE [facility] SystemU[facility] Exffdmi1733-64-40 04:46:00 Test Item Value Reference Range Interpretation Comments Urine Protein (test code = 5804-0) NEGATIVE NEGATIVE [facility] Glucose (UA)2017-03-05 04:46:00 Test Item Value Reference Range Interpretation Comments Urine Glucose (UA) (test code = NEGATIVE NEGATIVE 2349-9) [facility] Qajqkcy7129-47-87 04:46:00 Test Item Value Reference Range Interpretation Comments Urine Ketones (test code = 01879-9) NEGATIVE NEGATIVE [facility] Pichgydpaoft0028-01-57 04:46:00 Test Item Value Reference Range Interpretation Comments Urine Urobilinogen (test code = 0.2 0.2-1 44912-6) [facility] SystemU[facility] Vverayizg7155-52-84 04:46:00 Test Item Value Reference Range Interpretation Comments Urine Bilirubin (test code = 1978-6) NEGATIVE NEGATIVE [facility] SystemU[facility] Bsqvi7511-61-79 04:46:00 Test Item Value Reference Range Interpretation Comments Urine Blood (test code = 81141-7) 2+ NEGATIVE H [facility] SystemCTA BRAIN [facility] [address] [place] [address] Patient Name: ERNIE VANCE MR #: [id number] : 1960 Age/Sex: 57/M Req #: [id number] [facility] Physician: ALEXIS COX MD Ordered by: ALEXIS COX MD Report #: [id number] Location: [facility] Room/Bed: [place] [address] Procedure: [id number] CT/CTA BRAIN Exam Date: 10/24/17 Exam Time: [...] COPY TO: ALEXIS COX MDCT BRAIN WO [place] [address] Patient Name: ERNIE VANCE MR #: [id number] : 1960 Age/Sex: 57/M Req #: [id number] Adm Physician: Ordered by: ARLETH WAHL MD Report #: [id number] Location: ER Room/Bed: Procedure: [id number] CT/CT BRAIN WO Exam Date: 10/23/17 Exam [...] ARLETH WAHL MD CTA CHEST [place] [address] Patient Name: ERNIE VANCE MR #: [id number] : 1960 Age/Sex: 57/M Req #: [id number] Adm Physician: Ordered by: ARLETH WAHL MD Report #: [id number] Location: ER Room/Bed: Procedure: [id number] CT/CTA CHEST Exam Date: 10/23/17 Exam Time: [...] is below limits set by [facility]). FINDINGS: Lines and Tubes: Pacemaker with leads [...] 4:21 PM Dictated By: MALACHI IRIZARRY MD 1621 Transcribed By: ANDREE on 10/23/17 1621 COPY TO: ARLETH WAHL V [facility] SINGLE (PORTABLE) [place] [address] Patient Name: ERNIE VANCE MR #: [id number] : 1960 Age/Sex: 57/M Req #: [id number] Adm Physician: Ordered by: ARLETH WAHL MD Report #: [id number] Location: ER Room/Bed: Procedure: [id number] DX/CHEST SINGLE (PORTABLE) Exam Date: 10/23/17 Exam [...] TO: ARLETH WAHL V MDCT BRAIN WO [place] [address] Patient Name: ERNIE VANCE MR #: [id number] : 1960 Age/Sex: 56/M Req #: [id number] Adm Physician: Ordered by: JACQUELYN MONTES DE OCA MD Report #: [id number] Location: ER Room/Bed: Procedure: [id number] CT/CT BRAIN WO Exam Date:Exam Time: REPORT [...] DE OCA MD CT CERVICAL SPINE WO [place] [address] Patient Name: ERNIE VANCE MR #: [id number] : 1960 Age/Sex: 56/M Req #: [id number] Adm Physician: Ordered by: JACQUELYN MONTES DE OCA MD Report #: [id number] Location: ER Room/Bed: Procedure: [id number] CT/CT CERVICAL SPINE WO Exam Date: Exam [...] 04/04/17206 COPY TO: JACQUELYN MONTES DE OCA [facility] SINGLE (PORTABLE) [place] [address] Patient Name: ERNIE VANCE MR #: [id number] : 1960 Age/Sex: 56/M Req #: [id number] Adm Physician: Ordered by: JACQUELYN MONTES DE OCA MD Report #: [id number] Location: ER Room/Bed: Procedure: [id number] DX/CHEST SINGLE (PORTABLE) Exam Date: 04/04/17 Exam [...] OCA MDHIP RIGHT 2-3 VW (+/- PELVIS) [place] [address] Patient Name: ERNIE VANCE MR #: [id number] : 1960 Age/Sex: 56/M Req #: [id number] Adm Physician: Ordered by: JACQUELYN MONTES DE OCA MD Report #: [id number] Location: ER Room/Bed: Procedure: [id number] DX/HIP RIGHT 2-3 VW (+/- PELVIS) Exam [...] Transcribed By: ANDREE on 04/04/17213 COPY TO: S WEET,LAIRD A MDSP LUMBAR, COMPLETE MIN 4VW [place] [id number] [place] [address] Patient Name: ERNIE VANCE MR #: [id number] : 1960 Age/Sex: 56/M Req #: [id number] Adm Physician: Ordered by: JACQUELYN MONTES DE OCA MD Report #: [id number] Location: ER Room/Bed: Procedure: [id number] DX/SP LUMBAR, COMPLETE MIN 4VW Exam Date: [...] JACQUELYN MONTES DE OCA MDUS ABDOMEN COMPLETE [place] [address] Patient Name: ERNIE VANCE MR #: [id number] : 1960 Age/Sex: 56/M Req #: [id number] Adm Physician: NICHELLE PALACIOS MD Ordered by: SCOTT AMIN MD Report #: [id number] Location: [facility] Room/Bed: [place] [address] Procedure: [id number] US/US ABDOMEN COMPLETE Exam Date: 03/08/17 Exam [...] on 03/08/17 1040 COPY TO: [facility] (PORTABLE) [place] [address] Patient Name: ERNIE VANCE MR #: [id number] : 1960 Age/Sex: 56/M Req #: [id number] Adm Physician: Ordered by: JACQUELYN MONTES DE OCA MD Report #: [id number] Location: ER Room/Bed: Procedure: [id number] DX/CHEST SINGLE (PORTABLE) Exam Date: 03/05/17 Exam [...]
[2021-06-08 02:22] LABS: Protime INR 1.34
[2021-06-08 02:23] LABS: Hematocrit 38.3 % (39.6-49.0); MPV 7.3 fL (7.6-11.3); RBC Red Blood Cell Count 4.52 M/uL (4.33-5.43)
[2021-06-08 02:35] LABS: ALT/SGPT 16 U/L (12-78); AST/SGOT 20 U/L (15-37); Albumin 2.3 g/dL (3.4-5.0); Alkaline Phosphatase 201 U/L (45-117); BUN Blood Urea Nitrogen 11 mg/dL (7-18); Bicarbonate 23 mmol/L (21-32); Bilirubin Direct 0.4 mg/dL (0-0.2); Bilirubin Total 0.8 mg/dL (0.2-1.0); Glucose Level 104 mg/dL (74-106); Magnesium 2.1 mg/dL (1.8-2.4); NT PRO-BNP 7553 pg/mL (<125); Potassium 3.7 mmol/L (3.5-5.1); Protein, Total 6.9 g/dL (6.4-8.2); Sodium Level 143 mmol/L (136-145)
[2021-06-08] MEDS ORDERED: MORPHINE 4 MG/ML SYR ONE (03:24)
--- NOTE | 2021-06-08 06:00 | EDPHYS ---
Physician Documentation [facility] Name: Ernie Rooney Age: 61 yrs Sex: Male : 1960 Arrival Date: 06/08/2021 Time: 00:44 Bed 5 Private MD: ED Physician Armand Medrano HPI: 06/08 01:03 This 61 yrs old Male presents to ER via EMS with unknown complaint. pkl 01:03 The patient or guardian reports chest pain that is located primarily in the substernal pkl area. Onset: just prior to arrival, 1 hour(s) ago. The pain does not radiate. Associated signs and symptoms: Pertinent positives: pain and swelling both scrotums for 2 weeks. H/O Diabetes with bilateral BKA. Historical: - Allergies: 00:52 NKA; as6 - Home Meds: 00:52 aspirin 81 mg Oral TbEC [Active]; atorvastatin 40 mg oral tab 1 tab once daily [Active];as6 03:41 gabapentin 800 mg oral tab 1 tab 3 times per day [Active]; glipizide 10 mg Oral tab 1 as6 tab once daily [Active]; levothyroxine 50 mcg cap 1 cap once daily [Active]; lisinopril 2.5 mg Oral tab 1 tab once daily [Active]; metformin 500 mg Oral tab 1 tab daily [Active]; omeprazole 20 mg Oral cpDR 1 cap once daily [Active]; spironolactone 25 mg Oral tab 1 tab once daily [Active]; tamsulosin 0.4 mg oral cap 1 cap once daily [Active]; venlafaxine 75 mg oral tab 1 tab 2 times per day [Active]; Humulin N Pen 100 unit/mL (3 mL) Sub-Q inpn [Active]; albuterol sulfate 90 mcg/actuation Inhl aepb [Active]; apixaban 5 mg oral tab 1 tab 2 times per day [Active]; cyclobenzaprine 10 mg Oral tab 1 tab as needed [Active]; furosemide 40 mg Oral tab 1 tab once daily [Active]; fenofibrate micronized 200 mg oral cap 1 cap once daily [Active]; - PMHx: 00:52 Arthritis; Back pain; CVA; Depression; Diabetes - NIDDM; Fibromyalgia; GERD; High as6 Cholesterol; Hyperlipidemia; Hypertension; Hypothyroidism; 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 - Social history:: Smoking status: Patient denies any tobacco usage or history of. ROS: 01:03 Eyes: Negative for injury, pain, redness, and discharge, ENT: Negative for injury, pkl pain, and discharge, Neck: Negative for injury, pain, and swelling, Cardiovascular: Negative for chest pain, palpitations, and edema, Respiratory: Negative for shortness of breath, cough, wheezing, and pleuritic chest pain, Abdomen/GI: Negative for abdominal pain, nausea, vomiting, diarrhea, and constipation, Back: Negative for injury and pain. 01:03 : Positive for bilateral pain and scrotal swelling. 01:03 MS/extremity: Positive for bilateral BKA. 01:03 Skin: Negative for rash. 01:03 Neuro: Negative for altered mental status, loss of consciousness. Exam: 01:03 Head/Face: Normocephalic, atraumatic. Eyes: Pupils equal round and reactive to light, pkl extra-ocular motions intact. Lids and lashes normal. Conjunctiva and sclera are non-icteric and not injected. Cornea within normal limits. Periorbital areas with no swelling, redness, or edema. ENT: Nares patent. No nasal discharge, no septal abnormalities noted. Tympanic membranes are normal and external auditory canals are clear. Oropharynx with no redness, swelling, or masses, exudates, or evidence of obstruction, uvula midline. Mucous membranes moist. Neck: Trachea midline, no thyromegaly or masses palpated, and no cervical lymphadenopathy. Supple, full range of motion without nuchal rigidity, or vertebral point tenderness. No Meningismus. Chest/axilla: Normal chest wall appearance and motion. Nontender with no deformity. No lesions are appreciated. 01:03 Cardiovascular: Rate: normal, Rhythm: regular. 01:03 Respiratory: the patient does not display signs of respiratory distress, Respirations: normal, Breath sounds: are clear throughout. 01:03 Abdomen/GI: Bowel sounds: normal, Palpation: abdomen is soft and non-tender, in all quadrants. 01:03 Back: Exam negative for acute changes. 01:03 : Male external genitalia: swelling, scrotal, that is moderate. 01:03 Musculoskeletal/extremity: Exam is negative for acute changes. 01:03 Skin: Exam negative for rash. 01:03 Neuro: Orientation: is normal, Mentation: is normal, Cranial nerves: grossly normal, Motor: Vital Signs: 00:51 BP 144 / 93; Pulse 94; Resp 19 S; Temp 97.5(O); Pulse Ox 100% on R/A; Weight 70.31 kg as6 (R); Height 5 ft. 7 in. (170.18 cm) (R); Pain 10/10; 02:00 BP 127 / 77; Pulse 80; Resp 17 S; Pulse Ox 100% on R/A; as6 03:20 BP 133 / 88; Pulse 84; Resp 18; Pulse Ox 98% on R/A; mk 04:30 BP 128 / 82; Pulse 84; Resp 16 S; Pulse Ox 99% on R/A; as6 05:53 BP 133 / 87; Pulse 89; Resp 18; Pulse Ox 98% on R/A; mk 00:51 Body Mass Index 24.28 (70.31 kg, 170.18 cm) as6 MDM: 00:44 Patient medically screened. pkl 05:53 Data reviewed: vital signs, nurses notes, lab test result(s), EKG, radiologic studies, pkl CT scan, ultrasound. ED course: Patient feeling better. Discussed lab, EKG and imaging studies with patient. Advised to follow up with his PCP and Urologist ( Dr. Cagle ) in 2 to 3 days. To return if necessary. Patient understood instructions. 06/08 00:55 Order name: Basic Metabolic Panel 06/08 00:55 Order name: CBC with Diff; Complete Time: 03:11 06/08 00:55 Order name: LFT's; Complete Time: 03:11 06/08 00:55 Order name: Magnesium; Complete Time: 03:11 06/08 00:55 Order name: NT PRO-BNP; Complete Time: 03:11 06/08 00:55 Order name: PT-INR; Complete Time: 03:11 06/08 00:55 Order name: Troponin HS; Complete Time: 02:36 06/08 00:55 Order name: XRAY Chest (1 view) 06/08 00:55 Order name: Basic Metabolic Panel; Complete Time: 02:49 EDMS 06/08 01:02 Order name: US Scrotum Testicles pkl 06/08 03:26 Order name: CT Chest For PE Angio pkl 06/08 03:53 Order name: Troponin High Sensitivity; Complete Time: 05:52 pkl 06/08 00:55 Order name: EKG; Complete Time: 00:56 06/08 00:55 Order name: Cardiac monitoring; Complete Time: :34 06/08 00:55 Order name: EKG - Nurse/Tech; Complete Time: 01:34 06/08 00:55 Order name: IV Saline Lock; Complete Time: 01:54 06/08 00:55 Order name: Labs collected and sent; Complete Time: :54 06/08 00:55 Order name: O2 Per Protocol; Complete Time: :34 06/08 00:55 Order name: O2 Sat Monitoring; Complete Time: :34 06/08 03:53 Order name: EKG; Complete Time: 03:53 pkl Administered Medications: 01:54 Drug: morphine 2 mg Route: IVP; Site: left forearm; as6 01:54 Drug: Zofran (Ondansetron) 4 mg Route: IVP; Site: left forearm; as6 03:29 Drug: morphine 4 mg Route: IVP; Site: left forearm; mk Disposition Summary: 06/08/21 06:00 Discharge Ordered Location: Home pkl Problem: new pkl Symptoms: have improved pkl Condition: Stable pkl Diagnosis - Chest pain. Abnormally thickened edematous scrotal sac wall. Small pkl bilateral hydrocele Followup: pkl - With: Douglas Cagle MD - When: 2 - 3 days - Reason: Re-evaluation by your physician Discharge Instructions: - Discharge Summary Sheet pkl Forms: - Medication Reconciliation Form pkl - Thank You Letter pkl - Antibiotic Education pkl - Prescription Opioid Use pkl Prescriptions: - Ultram 50 mg Oral Tablet - take 1 tablet by ORAL route every 8 hours As needed; 12 tablet; Refills: 0, pkl Product Selection Permitted Signatures: Dispatcher [employer] Armand Stone MD MD pkl Brendan Davis, MENTAL HEALTH SOCIAL WORKER-C MENTAL HEALTH SOCIAL WORKER-Cla1 Enoc Sahu, RN RN as6 Beata Herrera, RN RN mk
--- NOTE | 2021-06-08 06:00 | ER ---
Nurse's Notes [facility] Name: Ernie Rooney Age: 61 yrs Sex: Male : 1960 Arrival Date: 06/08/2021 Time: 00:44 Bed 5 Private MD: Diagnosis: Chest pain. Abnormally thickened edematous scrotal sac wall. 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 Coronavirus screen: At this time, the client does not indicate any symptoms associated with coronavirus-19. Ebola Screen: No symptoms or risks identified at this time. Initial Sepsis Screen: Does the patient meet any 2 criteria? No. Patient's initial sepsis screen is negative. Does the patient have a suspected source of infection? No. Patient's initial sepsis screen is negative. Risk Assessment: Do you want to hurt yourself or someone else? Patient reports no desire to harm self or others. Onset of symptoms was June 08, 2021. Care prior to arrival: Medication(s) given: ASA, 81 mg, x 4. 00:51 Method Of Arrival: EMS: [facility] as6 00:51 Acuity: TONE 3 as Historical: - Allergies: 00:52 NKA; as6 - Home Meds: 00:52 aspirin 81 mg Oral TbEC [Active]; atorvastatin 40 mg oral tab 1 tab once daily [Active];as6 03:41 gabapentin 800 mg oral tab 1 tab 3 times per day [Active]; glipizide 10 mg Oral tab 1 as6 tab once daily [Active]; levothyroxine 50 mcg cap 1 cap once daily [Active]; lisinopril 2.5 mg Oral tab 1 tab once daily [Active]; metformin 500 mg Oral tab 1 tab daily [Active]; omeprazole 20 mg Oral cpDR 1 cap once daily [Active]; spironolactone 25 mg Oral tab 1 tab once daily [Active]; tamsulosin 0.4 mg oral cap 1 cap once daily [Active]; venlafaxine 75 mg oral tab 1 tab 2 times per day [Active]; Humulin N Pen 100 unit/mL (3 mL) Sub-Q inpn [Active]; albuterol sulfate 90 mcg/actuation Inhl aepb [Active]; apixaban 5 mg oral tab 1 tab 2 times per day [Active]; cyclobenzaprine 10 mg Oral tab 1 tab as needed [Active]; furosemide 40 mg Oral tab 1 tab once daily [Active]; fenofibrate micronized 200 mg oral cap 1 cap once daily [Active]; - PMHx: 00:52 Arthritis; Back pain; CVA; Depression; Diabetes - NIDDM; Fibromyalgia; GERD; High as6 Cholesterol; Hyperlipidemia; Hypertension; Hypothyroidism; 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 - Social history:: Smoking status: Patient denies any tobacco usage or history of. Screenin:50 Abuse screen: Denies threats or abuse. Denies injuries from another. Nutritional as6 screening: No deficits noted. Tuberculosis screening: No symptoms or risk factors identified. Fall Risk None identified. Assessment: 01:00 General: Appears uncomfortable, Behavior is cooperative, restless. Pain: Complains of as6 pain in groin. Neuro: Level of Consciousness is awake, alert, obeys commands, Oriented to person, place, time, situation. Cardiovascular: Reports chest pain. Respiratory: Airway is patent Trachea midline Respiratory effort is even, unlabored, Respiratory pattern is regular, symmetrical, hyperventilation. : Swelling noted Reports pain in bilateral testicle. 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 as6 03:00 General: Appears in no apparent distress. Pain: Complains of pain in scrotal Pain mk currently is 8 out of 10 on a pain scale. Quality of pain is described as aching. Neuro: Level of Consciousness is awake, alert, obeys commands, Oriented to person, place, time, situation. Cardiovascular: Heart tones S1 S2 Pulses are 2+ in right radial artery and left radial artery. Respiratory: Airway is patent Trachea midline Respiratory effort is even, unlabored, Respiratory pattern is regular, symmetrical. : Swelling noted. Derm: Skin is intact, Skin is pink, warm \T\ dry. Skin temperature is warm swelling/errythema testicles. 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 Reports pain in pelvis. 04:00 Reassessment: No changes from previously documented assessment. Patient and/or family mk updated on plan of care and expected duration. Pain level reassessed. Patient is alert, oriented x 3, equal unlabored respirations, skin warm/dry/pink. 05:00 Reassessment: No changes from previously documented assessment. Patient and/or family mk updated on plan of care and expected duration. Pain level reassessed. Patient is alert, oriented x 3, equal unlabored respirations, skin warm/dry/pink. Patient states feeling better. 05:55 Reassessment: No changes from previously documented assessment. Patient and/or family mk updated on plan of care and expected duration. Pain level reassessed. Patient is alert, oriented x 3, equal unlabored respirations, skin warm/dry/pink. Vital Signs: 00:51 BP 144 / 93; Pulse 94; Resp 19 S; Temp 97.5(O); Pulse Ox 100% on R/A; Weight 70.31 kg as6 (R); Height 5 ft. 7 in. (170.18 cm) (R); Pain 10/10; 02:00 BP 127 / 77; Pulse 80; Resp 17 S; Pulse Ox 100% on R/A; as6 03:20 BP 133 / 88; Pulse 84; Resp 18; Pulse Ox 98% on R/A; mk 04:30 BP 128 / 82; Pulse 84; Resp 16 S; Pulse Ox 99% on R/A; as6 05:53 BP 133 / 87; Pulse 89; Resp 18; Pulse Ox 98% on R/A; mk 00:51 Body Mass Index 24.28 (70.31 kg, 170.18 cm) as6 ED Course: 00:44 Patient arrived in ED. la1 00:44 Armand Medrano MD is Attending Physician. pkl 00:51 Enoc Sahu, SHEBA is Primary Nurse. as6 00:52 Triage completed. as6 00:54 Arm band placed on. as6 01:44 US Scrotum Testicles In Process Unspecified. EDMS 01:54 Inserted saline lock: 20 gauge in left forearm, using aseptic technique. Blood as6 collected. 02:02 XRAY Chest (1 view) In Process Unspecified. EDMS 02:52 Basic Metabolic Panel Sent. mk 04:06 CT Chest For PE Angio In Process Unspecified. EDMS 04:52 Placed in gown. Bed in low position. Call light in reach. Side rails up X2. Cardiac as6 monitor on. Pulse ox on. NIBP on. Warm blanket given. 05:58 Douglas Cagle MD is Referral Physician. pkl 09:07 No provider procedures requiring assistance completed. Patient did not have IV access lockett during this emergency room visit. Administered Medications: 01:54 Drug: morphine 2 mg Route: IVP; Site: left forearm; as6 01:54 Drug: Zofran (Ondansetron) 4 mg Route: IVP; Site: left forearm; as6 03:29 Drug: morphine 4 mg Route: IVP; Site: left forearm; mk Outcome: 06:00 Discharge ordered by . pkl 09:07 Discharged to home lockett 09:07 Condition: good 09:07 Discharge instructions given to patient, Prescriptions given X 1. 09:08 Patient left the ED. lockett Signatures: Dispatcher [employer] EDMS Armand Medrano MD MD pkl Brendan Davis, BRIDGE EXPERT-C BRIDGE EXPERT-Cla1 Enoc Sahu, SHEBA SCRUGGS as6 Desiree Bruce RN RN ha Kotarski, Madeline, RN SHEBA lopez
--- NOTE | 2021-06-08 07:44 | RAD REPORT ---
EXAM DESCRIPTION: RAD - Chest Single View - 06/08/2021 2:02 am CLINICAL HISTORY: CHEST PAIN COMPARISON: Chest Single View dated 03/31/2021; Chest Single View dated 02/14/2021; Chest Single View dated 07/31/2019; Chest Single View dated 05/11/2019; Chest For Pe Angio dated 06/08/2021 FINDINGS: Lines: None. Lungs: Interval development of bilateral pulmonary edema. Pleural: Mild to moderate layering bilateral pleural effusions Cardiac: Cardiomegaly. Pacemaker. Bones: No acute fractures. Other: Sternotomy. IMPRESSION: Pulmonary edema with moderate layering pleural effusions.
[2021-06-08 09:25] VITALS: TEMP 97.5
[2021-06-08 09:43] VITALS: BP 133/87; O2SAT 98
--- NOTE | 2021-06-08 13:26 | RAD REPORT ---
EXAM DESCRIPTION: CT - Chest For Pe Angio - 06/08/2021 6:30 am CLINICAL HISTORY: 61 years Male CHEST PAIN. TECHNIQUE: Following the administration of intravenous contrast, multiple high-resolution axial imag es of the chest were performed followed by sagittal and coronal reconstructed images. Coronal oblique MIP images were also performed. The CT study is performed according to ALARA (as low as reasonably a chievable) or ALARA/IMAGE GENTLY, with automatic adjustment of mA and/or kV according to patient size . Performed on: 06/08/2021 at 4:00 AM COMPARISON: CT chest angiography performed on 07/31/2019 FINDINGS: There is satisfactory visualization and contrast opacification of pulmonary arteries. No definite intra-arterial filling defects are identified to suggest acute or chronic pulmonary embolis m. The thoracic aorta is normal in caliber and contour without evidence of aneurysm or dissection. Th ere are mild atherosclerotic calcifications along the thoracic aorta. There is a left subclavian chandan ry vascular stent. Patency of the stent is difficult to confirm on this study. The lungs are well-expanded. There are moderate bilateral pleural effusions with associated bibasilar compressive atelectasis. There is patchy hazy parenchymal opacification within the left upper and le ft lower lobe and right lower lobe which may be due to atelectasis or inflammatory changes. The heart is normal in size. There is no pericardial effusion. There is no reflux of contrast into th e hepatic veins to suggest right heart strain.The RV/LV ratio is within normal limits. There are mode rate coronary artery calcifications. A left subclavian bipolar pacemaker is present with leads extend ing into the right sided cardiac chambers. There are remote postsurgical changes of the mediastinum. There is no evidence of hilar, mediastinal or axillary lymphadenopathy. No acute osseous abnormality is identified. There is prominent degenerative spondylosis along the tho racic spine. There is limited visualization of the upper abdominal structures. There are prominent collateral vessels along the left chest wall which may be due to a central stenos is. There is a small, stable subcutaneous low density nodule along the anterior chest wall in the mid line measuring approximately 1.8 x 0.8 cm in cross-sectional diameter likely representing a small adolfo aceous cyst. IMPRESSION: 1. No evidence of acute or chronic pulmonary embolism, aortic aneurysm or dissection. 2. Moderate bilateral pleural effusions with associated bibasilar compressive atelectasis. 3. Patchy hazy parenchymal opacification within the left upper, left lower lobe and right lower lob e which may be due to atelectasis or inflammatory changes. 4. Remote postsurgical changes of the mediastinum. 5. Left subclavian artery vascular stent. Patency is difficult to confirm on this study. 6. Prominent collateral vessels along the left chest wall which may be due to a central stenosis. 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 The interpreting radiologist is fully responsible for the content of the report.
--- NOTE | 2021-06-08 14:53 | RAD REPORT ---
EXAM DESCRIPTION: US - Scrotum Testicles - 06/08/2021 2:38 am CLINICAL HISTORY: 61 years, Male, swelling both scrotums;Pain COMPARISON: None. FINDINGS: Multiple grayscale images of the testicles were performed. Color Doppler imaging was used to assess vascular flow. The right testicle measures 4 x 2.4 x 2.2 cm, the right epididymis measured 2.8 x 1.7 x 1.6 cm. The re is normal vascular flow within the right testicle and right epididymis. There is a small hydrocele . The left testicle measured 3.3 x 2.4 x 2.3 cm, the left epididymis measured 1.7 x 1.0 x 0.8 cm. There is normal vascular flow within the left testicle and left epididymis. There is a small hydrocele. There is abnormally thickened scrotal sac/tissue corresponding to most likely edema. IMPRESSION: SMALL BILATERAL HYDROCELE. ABNORMALLY THICKENED EDEMATOUS SCROTAL SAC WALL. OTHERWISE UNREMARKABLE TESTICULAR ULTRASOUND. Electronically signed by: Tato Dugan MD 06/08/2021 2:19 AM SECOND VP HR ASSESSMENT Due to temporary technical issues with the PACS/Fluency reporting system, reports are being signed by the in house radiologists without review as a courtesy to insure prompt reporting. The interpreting radiologist is fully responsible for the content of the report.
--- NOTE | 2021-06-09 07:27 | EKG ---
Test Date: 2021-06-08 Test Time: 05:09:16 Psychiatric Secretary: MEASUREMENT RESULTS: Intervals: Rate: 87 OH: 148 QRSD: 166 QT: 456 QTc: 548 [place]: P: 53 OH: 148 QRS: -44 T: 133 INTERPRETIVE STATEMENTS: Atrial-sensed ventricular-paced rhythm Abnormal ECG Compared to ECG 06/08/2021 01:02:52 No significant changes Electronically Signed On 06-09-21 07:26:09 MOLDER VACUUM by Luca Royal
--- NOTE | 2021-06-09 07:28 | EKG ---
Test Date: 2021-06-08 Test Time: 01:02:52 Targeteer: MEASUREMENT RESULTS: Intervals: Rate: 93 CA: 184 QRSD: 164 QT: 446 QTc: 554 [place]: P: 45 CA: 184 QRS: -44 T: 121 INTERPRETIVE STATEMENTS: Atrial-sensed ventricular-paced rhythm Abnormal ECG Compared to ECG 03/31/2021 23:06:54 No significant changes Electronically Signed On 06-09-21 07:26:12 NAVAL ENGINEER by Luca Royal
== END 2021-06-08 09:08 | disposition home or self-care (01) ==
LOC: ER 00:41
DX: N43.3 Hydrocele, unspecified (principal); N49.2 Inflammatory disorders of scrotum; I10 Essential (primary) hypertension; E11.9 Type 2 diabetes mellitus without complications; E78.00 Pure hypercholesterolemia, unspecified; Z79.82 Long term (current) use of aspirin; Z79.4 Long term (current) use of insulin; Z89.511 Acquired absence of right leg below knee; Z89.512 Acquired absence of left leg below knee; Z95.1 Presence of aortocoronary bypass graft; Z95.0 Presence of cardiac pacemaker
CPT/HCPCS: 93005 ×2; 85025; 80048; 36415; 83735; 85610; 80076; 84484 ×2; 83880; 71275; 71045; 76870; Q9967; J2270; J2405; 96374; 96375; 99285

== ENCOUNTER 2021-06-26 01:17 | Emergency (ER) | payer OTHER ==
--- OUTSIDE RECORDS SUMMARY | 2021-06-26 02:17 | XMS REPORT | Continuity of Care Document ---
:1960 Author Organization [facility] t Address 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 Attending Clinician LUIS Attending Clinician Unavailable James Attending Clinician TRAVIS Attending Clinician Unavailable Nola HALL Attending Clinician NOLA Attending Clinician Unavailable NOLA Attending Clinician Unavailable LOAN SHIRLEY Attending Clinician Unavailable Rober RAE, Loan Attending Clinician Nova RAE, Thanh Attending Clinician Emy SCRUGGS Attending Clinician Beth Finley MD Attending Clinician [phone] Ashley Allen MD Attending Clinician BROOKE Attending Clinician Unavailable Andrew MONTES DE OCA Attending Clinician Unavailable PHILIP Attending Clinician Unavailable [id number] Admitting Clinician Unavailable Troy Martin Admitting Clinician Unavailable [...] Admitting Clinician Beth Finley MD Admitting Clinician [phone] BROOKE Admitting Clinician Unavailable PHILIP Admitting Clinician Unavailable Payers Payer Name Policy Type Policy Number Effective Date Expiration Date [facility]field [facility] [id number] [employer] [id number] 2018spring 00:00:00 [facility] [id number] 2004 LUCY Frankel 00:00:00 [facility] Advance Directives Directive Decision Effective Termination Comments Source Date Date Healthcare Agents on N/A Univ ersity FileNameRelds hospitalshipHealthcare of [place] Agent Medical RelationshipCommunicationHortencia Branch EstradaMotherHealth Care [phone] (Mobile) Problems Condition Condition Condition Status Onset Resolution Last Treating Co mments Source Name Details Category Date Date Treatment Clinician Date Pulmonary Pulmonary Disease Active Uni vers hypertensi hypertensi 8-16 it y of on on 00:00: [place] 00 Medical Branch IRVING IRVING Disease Active Univers (dyspnea (dyspnea 8-15 ity of on on 00:00: [place] exertion) exertion) 00 [facility] Pleural Pleural Disease Active Univers effusion, effusion, 8-13 [place] of bilateral [place] CHF CHF Disease Active Univers (congestiv (congestiv 5-05 it y of e heart e heart 00:00: [place] failure), failure), 00 [facility] NYHA class NYHA class Br anch I, acute I, acute on on chronic, chronic, combined combined Hypotensio Hypotensio Disease Active U nivers n n 4-15 ity of 00:00: [place] 00 Medical Branch Sepsis Sepsis Disease Active Univers 4-14 ity of 00:00: [place] 00 Medical Branch Right leg Right leg [...] Active Univers 3-08 ity of 00:00: [place] 00 Medical Branch Obesity Obesity Disease Active Univers (BMI (BMI 2-23 ity of 30-39.9) 30-39.9) 00:00: [place] 00 Medical Branch Diabetic Diabetic Disease Active Unive rs foot foot 2-19 ity of infection infection 00:00[place] Osteomyeli Osteomyeli Disease Active 2019- U nivers tis tis 0-26 ity of 00:00: Medical Branch Preop Preop Disease Active 2019-05 [...] Formattin ity of 00:00: g of this [place] 00 note Medical might be Branch different from the original. Added automatic ally from request for surgery [id number] Troponin I Troponin I Disease Active 2020- [...] adult in adult 9-14 ity of 00:00: [place] [facility] Cellulitis Cellulitis Disease Active 2020-0 U nivers of left of left 6-27 ity of foot foot 00:00: [place] 00 Medical Branch Pacemaker Pacemaker Disease Active Uni vers 3-18 ity of 00:00: [place] [facility] PAF PAF Disease Active Univers (paroxysma (paroxysma 3-18 it y of l atrial l atrial 00:00: [place] fibrillati fibrillati 00 Me dical on) on) Branch Abdominal Abdominal Disease Active Uni vers pain pain 2-27 ity of 00:00: [place] [facility] Pacemaker Pacemaker Disease Active Uni vers malfunctio malfunctio 2-04 it y of n n 00:00: [place] [facility] Cellulitis Cellulitis Disease Active 2018-05 U nivers 1-19 ity of 00:00: [place] [facility] Arterioven Arterioven Disease Active U [...] artery 8-29 ity of disease disease 00:00: [place] involving involving 00 Medi uriel [facility] coronary 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 8- ity of disease disease 00:00: [place] involving involving 00 Medi uriel [place] Branch coronary coronary artery of artery of [place] heart with heart with angina angina pectoris pectoris Type 2 Type 2 Disease Active Univers diabetes diabetes 8-29 ity of mellitus mellitus 00:00: [place] without without 00 Medical complicati complicati Br anch on, on, without without long-term long-term current current use of use of insulin insulin Essential Essential Disease Active Uni vers hypertensi hypertensi 8-29 it y of on on 00:00: [place] 00 Medical Branch Other Other Disease Active Univers hyperlipid hyperlipid 8-29 it y of emia emia 00:00: [facility] Branch Stroke Stroke Disease Active 2019- Univers 5-12 ity of 00:00: Medical Branch Left-sided Left-sided Disease Active U nivers weakness weakness 5-11 ity of 00:00: Medical Branch Left sided Left sided Disease Active U nivers numbness numbness 5-11 ity of 00:00: [facility] Branch S/P admn S/P admn Disease Active Unive rs tPA in tPA in 4-11 ity of diff fac diff fac 00:00: [place] w/n last w/n last 00 Medica l 24 hr bef 24 hr bef Bran ch adm to adm to crnt fac crnt fac Unstable Unstable Disease Active Unive rs angina angina 4-10 ity of 00:00: [facility] Atypical Atypical Disease Active Unive rs chest pain chest pain 2-22 it y of 00:00: [place] [facility] Chest pain Chest pain Disease Active U nivers 2-22 ity of 00:00: [facility] Chest pain Chest pain Problem Active [facility] 00 [facility] Coronary CAD Problem Active [facility] artery (coronary [facility] - disease artery Patient disease) [facility] Diabetic DKA Problem Active [facility] ketoacidos (diabetic Esme es - is ketoacidos Patien t es) [facility] Hyperglyce Hyperglyce Problem Active [facility]i bambi [facility] Patient [facility] Hypertensi Hypertensi Problem Active [facility] on [facility] Patient [facility] Pancreatit Pancreatit Problem Active [facility] is is [facility] Patient [facility] Uncontroll Uncontroll Problem Active [facility] ed [facility] - diabetes diabetes Patien t mellitus mellitus [facility] Allergies, Adverse Reactions, Alerts Allergy Allergy Status Severity Reaction(s) Onset Inactive Treating Comm ents Source Name Type Date Date Clinician No Known DA Active U [facility] Allergie 3-22 [place] [facility] 00:00: d 00 [facility] No Known DA Active U [facility] Allergie 3-22 [place] 00:00: d 00 [facility] No Known DA Active U 2018-1 [facility] Allergie 2-31 Clear s 00:00: Mejia 00 [facility] No Known DA Active U 2018-1 [facility] Allergie 2-31 Clear s 00:00: Mej[place] 00 [facility] No Known DA Active U 2018-0 [facility] All[facility]ie 3-26 [place] [facility] 00:[facility] e [facility] NO KNOWN Drug Active Univers ALLERGIE Class ity of S [facility] Social History Social Habit Start Date Stop Date Quantity Comments Source Exposure to Not sure University of SARS-CoV-2 [facility] [place] (event) Branch History of Cigarette Smoker Universi ty of tobacco use [facility] Tobacco use and 2021-01-02 2021-01-02 Never used Universit y of exposure 00:00:00 00:00:00 [facility] Alcohol intake 2021-01-02 2021-01-02 Current University of 00:00:00 00:00:00 non-drinker of [place] Medi [facility] alcohol (finding) Branch Tobacco Comment 2021-01-01 2021-01-01 quit 7 years ago Uni versity of 00:00:00 00:00:00 [facility] [place] Branch History SDOH 2020-03-16 2020-03-16 3 University o f Financial 00:00:00 00:00:00 [place] [facility] History SDOH Food 2020-03-16 2020-03-16 2 Univers ity of Worry 00:00:00 00:00:00 [facility] History SDOH Food 2020-03-16 2020-03-16 2 Univers ity of Scarcity 00:00:00 00:00:00 [place] [facility] History SDOH 2020-03-16 2020-03-16 1 University o f Transport Med 00:00:00 00:00:00 [place] Medic al Branch History SDOH 2020-03-16 2020-03-16 1 University o f Transport Non-Med 00:00:00 00:00:00 [place] M edical Branch Alcohol Comment 2019-07-18 2019-07-18 quit drinking Univer sity of 00:00:00 00:00:00 2013 but drank [place] Medi uriel heavily before Branch this Sex Ass[birth year] At [birth year] Universit y of 00:00:00 00:00:00 [facility] Smoking Status Start Date Stop Date Source Unknown if ever smoked Universit y of [facility] Former smoker 2021-01-02 00:00:00 2021-01-02 [facility]:00:[facility] [place] [facility] Medications Ordered Filled Start Stop [...] by mouth ity of tablet 23:12: daily. [place] [address] Medical Branch venlafaxine Yes 75mg Take 75 mg Univers 75 mg 8-16 by mouth 2 ity of tablet 23:12: (two) [place] [address] times [facility] daily. Branch atorvastati Yes 40mg Take 40 mg Univers n 40 mg 8-16 by mouth ity of tablet 23:12: at [place] [address] bedtime. Medical Branch gabapentin Yes 800mg Take 800 Un char[place] 800 mg 8-16 mg by ity of tablet 23:12: mouth 3 [place] 14 (three) Medical times Branch daily. omeprazole Yes 20mg Take 20 mg U nivers 20 mg 8-16 by mouth ity of capsule 23:12: daily. [address] Branch lisinopriL Yes 2.5mg Take 2.5 Un charley 2.5 mg 8-16 mg by ity of tablet 23:12: mouth [place] 14 daily. Medical Branch levothyroxi Yes 50ug Take 50 Uni vers ne 50 mcg 8-16 mcg by ity of tablet 23:12: mouth [place] 14 every Medical morning. Branch ASPIRIN Yes Take by Univer s ORAL 8-16 mouth ity of 23:12: daily. [address] Branch glipiZIDE Yes 10mg Take 10 mg Un char[place] 10 mg 8-16 by mouth ity of tablet 23:12: daily. [place] [address] Medical Branch metFORMIN Yes 500mg Take 500 Uni vers 500 mg 8-16 mg by ity of tablet 23:12: mouth [place] 14 daily. Medical Branch tamsulosin Yes Take by Uni vers 0.4 mg 24 8-16 mouth ity of hr capsule 23:12: daily. [place] 14 Medical Branch fenofibrate Yes 200mg Take 200 U nivers micronized 8-16 mg by ity of 200 mg 23:12: mouth [place] capsule 14 daily with Medica l breakfast. Branch spironolact Yes 25mg Take 25 mg Univers one 25 mg 8-16 by mouth ity of tablet 23:12: daily. [place] [address] Medical Branch venlafaxine Yes 75mg Take 75 mg Univers 75 mg 8-16 by mouth 2 ity of tablet 23:12: (two) [place] 14 times Medical daily. Branch atorvastati Yes 40mg Take 40 mg Univers n 40 mg 8-16 by mouth ity of tablet 23:12: at [place] [address] bedtime. Medical Branch gabapentin Yes 800mg Take 800 Un [place] 800 mg 8-16 mg by ity of tablet 23:12: mouth 3 [place] (three) Medical times Branch daily. omeprazole Yes 20mg Take 20 mg U nivers 20 mg 8-16 by mouth ity of capsule 23:12: daily. [place] [address] Medical Branch lisinopriL Yes 2.5mg Take 2.5 Un charley 2.5 mg 8-16 mg by ity of tablet 23:12: mouth [place] 14 daily. Medical Branch levothyroxi Yes 50ug Take 50 Uni vers ne 50 mcg 8-16 mcg by ity of tablet 23:12: mouth [place] 14 every Medical morning. Branch ASPIRIN Yes Take by Univer s ORAL 8-16 mouth ity of 23:12: daily. [place] [address] Medical Branch glipiZIDE Yes 10mg Take 10 mg Un charley 10 mg 8-16 by mouth ity of tablet 23:12: daily. [place] [address] Medical Branch metFORMIN Yes 500mg Take 500 Uni vers 500 mg 8-16 mg by ity of tablet 23:12: mouth [place] 14 daily. Medical Branch tamsulosin Yes Take by Uni vers 0.4 mg 24 8-16 mouth ity of hr capsule 23:12: daily. [place] [address] Medical Branch tc 2020- No [id number] 44mCi 44 Univers 99m-tetrofo 816 08-16 millicurie i ty of smin 17:00: 16:47 , [place] ([facility]) 00 :00 Intravenou Medi uriel injection s, ONCE, 1 Bran ch 44 dose, [facility] millicurie 01/04/21 at 1200, Routine tc 2020-0 2020- No [id number] 15.2mCi 15.2 Unive rs 99m-tetrofo 01-04 millicurie i ty of [facility] 15:45: 15:35 , [place] ([facility]) 00 :00 Intravenou Medi uriel injection s, ONCE, 1 Bran ch 15.2 dose, [facility] millicurie 01/04/21 at 1045, Routine furosemide Yes 40mg 40 mg, IV Un charley (LASIX) 01-04 Push, ity of injection 14:00: QAM+PM, [place] 40 mg 00 First dose Medical (after Branch last modificati on) on Mon01/04/21 at 0900, Until Discontinu ed, PIERRE metoprolol Yes 25mg 25 [facility] 01-04 Oral, ity of XL (TOPROL 14:00: DAILY, [place] XL) tablet 00 First dose Med ical 25 mg (after Branch last modificati on) on Mon01/04/21 at 0900, Until Discontinu ed, Routine NaCl 0.9% 2020- No 250mL at 999 Univ ers (NS) bolus 01-04 08-16 mL/hr, 250 it y of infusion 09:30: 08:29 mL, IV [place] 250 mL 00 :00 Infusion, Medical ONCE, 1 Branch dose, Mon01/04/21 at 0430, Routine NaCl 0.9% 2020- No 250mL at [...] Routine fenofibrate 2020-0 Yes 67mg 67 mg, Univ ers micronized 8-14 Oral, ity of (LOFIBRA) 14:00: DAILY, [place] capsule 67 00 First dose Med ical mg on [facility] 01/02/21 at 0900, Until Discontinu ed, Routine tamsulosin 2020-0 Yes .4mg 0.4 mg, Univ ers (FLOMAX) 8-14 Oral, ity of capsule 0.4 14:00: DAILY, [place] mg 00 First dose Medical on [facility] 01/02/21 at 0900, Until Discontinu ed, Routine omeprazole 2020-0 Yes 20mg 20 mg, Unive rs (PRILOSEC) 8-14 Oral, ity of capsule 20 14:00: DAILY, [place] mg 00 First dose Medical on [facility] 01/02/21 at 0900, Until Discontinu ed, Routine lisinopriL 2020-0 Yes 2.5mg 2.5 mg, Uni vers (PRINIVIL,Z 8-14 Oral, ity of ESTRIL) 14:00: DAILY, [place] tablet 2.5 00 First dose Med ical mg on [facility] 01/02/21 at 0900, Until Discontinu ed, Routine gabapentin 2020-0 Yes 800mg 800 mg, Uni vers (NEURONTIN) 8-14 Oral, TID, it y of tablet 800 13:00: First dose [place] mg 00 on [facility] 01/02/21 at Branch 0800, Until Discontinu ed, Routine apixaban 2020-0 Yes 1358 5mg 5 mg, Univers (ELIQUIS) 8-14 Oral, BID, ity of tablet 5 mg 13:00: First dose [place] 00 on [facility] 01/02/21 at Branch 0800, Until Discontinu ed, Routine glipiZIDE 2020-0 Yes 10mg 10 mg, Univer s (GLUCOTROL) 8-14 Oral, ity of tablet 10 12:30: BIDAC, [place] mg 00 First dose Medical on [facility] 01/02/21 at 0730, Until Discontinu ed, Routine levothyroxi 2020-0 Yes 50ug 50 mcg, Uni vers ne 8-14 Oral, ity of (SYNTHROID) 11:00: QAM-0600, [place] tablet 50 00 First dose Medi uriel mcg on [facility] 01/02/21 at 0600, Until Discontinu ed, Routine morpHINE Yes 2mg 2 mg, Slow Uni vers injection 2 01-02 IV Push, ity of mg 07:10: Q8HPRN, [place] [address] [facility] Branch 01/02/21 at 0210, Until Discontinu ed, Routine, Pain (scale 7-10) proMETHazin 2020- No 25mg 25 mg, IV Univers e 01-02 Piggyback, ity of (PHENERGAN) 06:30: 05:42 ONCE, 1 [place] 25 mg in 00 :00 dose, Sat Medica l NaCl 0.9% 01/02/21 at Bran ch (NS) 50 mL 0130, IV Routine [...] 04:05: Q8HPRN, [place] mg 52 Starting Medical [facility] 01/01/21 at 2305, Until Discontinu ed, Routine, Pain (scale 4-6) atorvastati 2020- No 40mg 40 mg, Uni vers n (LIPITOR) 01-0215 Oral, QHS, i ty of tablet 40 02:00: 23:16 First dose [place] mg 00 :49 on Fri Medical 01/01/21 at Branch 2100, Until Discontinu ed, Routine morpHINE 2020-2020- No 2mg 2 mg, Slow Un char[place] injection 2 01-02 08-14 IV Push, ity of mg 01:47: 04:06 Q4HPRN, [place] 39 :01 Starting Medical Fri Branch 01/01/21 at 2047, Until Mon01/01/21 at 2306, Routine, Pain (scale 7-10), Chest pain docusate Yes 100mg 100 mg, Unive rs (COLACE) 8-14 Oral, BID, ity o f capsule 100 01:45: First dose [place] mg 00 on Mon Medical 01/01/21 at Branch 2044, Until Discontinu ed, Routine Sliding Yes Subcutaneo Univ ers Scale 8-14 us, [...] 0 Yes 81mg 81 mg, Univers chewable 814 Oral, QAM ity of tablet 81 01:45: WITH [place] mg 00 BREAKFAST, Medical First dose Branch on Mon01/01/21 at 2044, Until Discontinu ed, Routine metoprolol 0 2020- No 25mg 25 mg, Univ ers succinate 01-02 08-16 Oral, BID, ity of XL (TOPROL 01:45: 11:45 First dose [place] XL) tablet 00 :38 on Mon Medical 25 mg 01/01/21 at Branch 2044, Until Discontinu ed, Routine ondansetron 0 Yes 4mg 4 mg, Slow Univers (ZOFRAN 8 IV Push, ity of (PF)) 01:36: Q6HPRN, [place] injection 4 51 Starting Medi uriel mg [facility] [place] [facility] Branch 01/01/21 at 2036, Until Discontinu ed, Routine, Nausea and Vomiting (N/V) glucagon Yes 1mg 1 mg, Univers (GLUCAGEN 01-02 [...] :56 First dose Medi uriel mg on Fri Branch 01/01/21 at 1800, Until Discontinu ed, Routine furosemide 2020- No 40mg 40 mg, IV U nivers (LASIX) 01-01 Push, ity of injection 22:15: 21:11 ONCE, 1 [place] 40 mg 00 :00 dose, Fri Medical 01/01/21 at Branch 1715, PIERRE iopamidol 2020- No [id number] 100mL 100 mL, Univers (ISOVUE 01-01 Intravenou ity o f 370-500 mL) 22:00: 20:48 s, ONCE, 1 [place] injection 00 :00 dose, Fri Medic al 100 mL 01/01/21 at Branch 1700, Routine FENTanyl PF 2020- No 75ug 75 mcg, Un charley (SUBLIMAZE 01-01 Slow IV ity o f (PF)) 21:30: 20:29 Push, [place] injection 00 :00 ONCE, 1 Medical 75 mcg dose, Fri [place] 01/01/21 at 1630, Routine metoprolol 2020- No [id number] 25mg Take 1 Univers succinate -17 01- tablet by ity of XL 25 mg 24 00:00: 04:59 mouth [place] hr tablet 00 :00 daily for Medic al 30 days. [place] metoprolol 2020- No [id number] 25mg Take 1 Univers succinate -17 01-29 tablet by ity of XL 25 mg 24 00:00: 04:59 mouth [place] hr tablet 00 :00 daily for Medic al 30 days. [place] metoprolol 2020- No [id number] 25mg Take 1 Univers succinate - 08-29 tablet by ity of XL 25 mg 24 00:00: 04:59 mouth [place] hr tablet 00 :00 daily for Medic al 30 days. [place] metoprolol 2020- No [id number] 25mg Take 1 Univers succinate - 08-29 tablet by ity of XL 25 mg 24 00:00: 04:59 mouth [place] hr tablet 00 :00 daily for Medic al 30 days. [place] metoprolol 2020- No [id number] 25mg Take 1 Univers succinate - 08-29 tablet by ity of XL 25 mg 24 00:00: 04:59 mouth [place] hr tablet 00 :00 daily for Medic al 30 days. [place] fenofibrate Yes 200mg Take 200 U nivers micronized 7-28 mg by ity of 200 mg 22:47: mouth [place] capsule 07 daily with Medica l breakfast. [place] spironolact Yes 25mg Take 25 mg Univers one 25 mg 7-28 by mouth ity of tablet 22:47: daily. [place] 07 Medical Branch venlafaxine Yes 75mg Take 75 mg Univers 75 mg 7-28 by mouth 2 ity of tablet 22:47: (two) times Medical daily. Branch atorvastati 0 Yes [...] ity of 22:47: daily. Medical Branch glipiZIDE 0 Yes 10mg Take 10 mg Un [place] 10 mg 7-28 by mouth ity of tablet 22:47: daily. [place] [address] Medical Branch metFORMIN Yes 500mg Take 500 Uni vers 500 mg 7-28 mg by ity of tablet 22:47: mouth [place] [address] daily. Medical Branch tamsulosin Yes Take by Uni vers 0.4 mg 24 7-28 mouth ity of hr capsule 22:47: daily. Medical Branch fenofibrate Yes 200mg Take 200 U nivers micronized 7-28 mg by ity of 200 mg 22:47: mouth [place] [facility] 07 daily with Medica l breakfast. [...] ORAL - mouth ity of 22:47: daily. Medical Branch [...] mouth ity of hr capsule 22:47: daily. [place] [address] Medical Branch metoprolol 2020- No 12.5mg Take 12.5 Univers succinate -16 12-28 mg by ity of 25 mg CSpX 21:24: 00:00 mouth. [place] 37 :00 Half tab. Medical Branch fenofibrate Yes 67mg 67 mg, [facility] ers micronized 12-16 Oral, ity of (LOFIBRA) 14:00: DAILY, [place] capsule 67 00 First dose Med ical mg on Mon Branch 12/16/20 at 0900, Until Discontinu ed, Routine tamsulosin Yes .4mg 0.4 mg, Univ ers (FLOMAX) 12-16 Oral, ity of capsule 0.4 14:00: DAILY, [place] mg 00 First dose Medical on Mon [place] 12/16/20 at 0900, Until Discontinu ed, Routine [...] Oral, ity of XL (TOPROL 14:00: DAILY, [place] XL) tablet 00 First dose Med ical [...] Subcutaneo it y of injection 02:00: , [place] 15 Units 00 QAM+HS, Medical First dose Branch on Mon12/15/20 at 2100, Until Discontinu ed, Routine atorvastati Yes 40mg 40 mg, Univ ers n (LIPITOR) 12-16 Oral, QHS, it y of tablet 40 02:00: First dose [place] mg 00 on Mon [facility] 12/15/20 at Branch 2100, Until Discontinu ed, Routine venlafaxine Yes 75mg 75 mg, Univ ers (EFFEXOR) 12-16 Oral, BID, ity of tablet 75 01:00: First dose [place] mg 00 on [facility] 12/15/20 at Branch 2000, Until Discontinu ed, Routine apixaban Yes 1358 5mg 5 mg, Univers (ELIQUIS) 12-16 Oral, BID, ity of tablet 5 mg 01:00: First dose [place] 00 on [facility] 12/15/20 at Branch 2000, Until Discontinu ed, Routine albuterol Yes 2{puff} 2 Puff, Un char[place] (VENTOLIN) 12-16 Inhalation ity of inhaler 2 01:00: , BID, [place] Puff 00 First dose Medical on [facility] 12/15/20 at 2000, Until Discontinu ed, Routine [...] mg 00 First dose Medical on [facility] 12/15/20 at 1700, Until Discontinu ed, Routine gabapentin Yes 800mg 800 mg, Uni vers (NEURONTIN) 12-15 Oral, TID, it y of tablet 800 19:00: First dose [place] mg 00 on [facility] 12/15/20 at Branch 1400, Until Discontinu ed, Routine Sliding Yes Subcutaneo Univ ers Scale 12-15 us, TID ity of Insulin - 17:00: MEALS+HS, Juan J as Lispro 00 First dose Medical (HumaLOG) + on Tue Branch [facility] 12/15/20 at Testing 1200, Until Discontinu [...] injection 26 Starting Medica l 25 mL e Branch 12/15/20 at 1145, Until Discontinu ed, PIERRE, Blood Glucose < or = 70 mg/dL and patient is unable to swallow or has mental status changes. sulfur 202- No [id number] 5mL 5 mL, Unive rs hexafluorid 12-15 Intravenou i ty of e microsphr 16:00: 16:00 s, ONCE, 1 [place] (LUMASON) 00 :00 dose, e Medic al injection 5 12/15/20 at Br anch mL 1100, Routine
body service team member approving Restricted medication : NINFA CASTILLO metoclopram 2020- No 10mg 10 mg, Uni vers dora HCl 12-15 Slow IV ity of (REGLAN) 14:45: 13:31 Push, [place] injection 00 :00 ONCE, 1 Medical 10 mg dose, [facility] Branch 12/15/20 at 0945, PIERRE ondansetron Yes 4mg 4 mg, Slow Univers (ZOFRAN 12-15 IV Push, ity of (PF)) 14:19: Q6HPRN, [place] injection 4 47 Starting Medi uriel mg [facility] Branch 12/15/20 at 0919, Until Discontinu ed, Routine, Nausea and Vomiting (N/V) morpHINE 2020- No 2mg 2 mg, Slow Un char[place] injection 2 12-15 IV Push, ity of mg 14:19: 14:18 Q4HPRN, [place] 37 :37 Starting Medical [facility] 12/15/20 at 0919, Until 12/16/20 at 0918, Routine, Pain (scale 7-10) acetaminoph 2020- No 1{tbl} 1 tablet, Univers en-codeine 12-15 Oral, ity of (TYLENOL 14:19: 14:18 Q6HPRN, [place] #3) 300-30 34 :34 Starting Medic al mg tablet 1 [facility] tablet 12/15/20 at 0919, Until [place] 12/17/20 at 0918, Routine, Pain (scale 4-6) acetaminoph Yes 650mg 650 mg, Un charley en 12-15 Oral, ity of (TYLENOL) 14:19: Q6HPRN, [place] tablet 650 31 Starting Medic al mg [facility] 12/15/20 at 0919, Until Discontinu ed, Routine, [...] ONCE, 1 Medical 75 mcg dose, [facility] 12/15/20 at 0700, STAT ondansetron 2020- No [...] ity of mg 03:15: 02:17 ONCE, 1 [place] 00 :00 dose, [facility] 12/14/20 at [place] 2215, STAT aspirin 2020- No 325mg 325 mg, Unive rs tablet 325 12-15 Oral, ity of mg 01:00: 23:49 ONCE, 1 [place] 00 :00 dose, [facility] 12/14/20 at [place] 2000, STAT ondansetron 2020- No 4mg 4 mg, Slow Univers (ZOFRAN 12-15 IV Push, ity of (PF)) 00:45: 23:48 ONCE, 1 [place] injection 4 00 :00 dose, [facility] Med ical mg 12/14/20 at [place] 1945, PIERRE morpHINE 2020- No 4mg 4 mg, Slow Un charley injection 4 12-15 IV Push, ity of mg 00:45: 23:48 ONCE, 1 [place] 00 :00 dose, [facility] 12/14/20 at [place] 1945, STAT No known No Univers medications 12-14 ity of 18:38: [place] 45 [facility] barium 2020- No [id number] 680g 680 g, Uni vers sulfate 10-28 Oral, ity of (LIQUID E-Z 17:15: 14:15 ONCE, 1 Khanh VELA) 60 % 00 :00 dose, Wed Med ical (w/v) oral 10/28/20 at [facility] suspension 1215, 680 g Routine sod 2020- No [id number] 1{packe 1 Packet, [facility] bicarb-citr 10-28 t} Oral, ity of ic 17:15: 14:15 ONCE, 1 [place] ac-simeth 00 :00 dose, [facility] Medic al (E-Z-GAS 10/28/20 at [place] II) 1215, 2.21-1.53 Routine gram/4 gram packet 1 Packet HUMULIN N Yes INJECT 14 Uni vers NPH U-100 5-22 UNITS ity of INSULIN 100 00:00: SUBCUTANEO [place] unit/mL 00 USLY AT Medical injection BEDTIME [place] HUMULIN N Yes INJECT 14 Uni vers [...] mg 00 :00 ONCE, 1 Medical dose, [facility] 09/28/20 at 2115, Routine
body service team member approving Restricted medication : ÓSCAR HERMOSILLO F dicyclomine 2020- No 20mg 20 mg, Uni vers (BENTYL) 09-29 Intramuscu ity of injection 02:15: 01:17 [place], ONCE, [place] 20 mg 00 :00 1 dose, Medical [facility] 09/28/20 at 2115, Routine NaCl 0.9% 2020- No 500mL at 999 Univ ers (NS) bolus 09-29 mL/hr, 500 it y of infusion 00:30: 01:40 mL, IV [place] 500 mL 00 :00 Piggyback, Medical ONCE, 1 Branch dose, [facility] 09/28/20 at 1930, STAT ondansetron 2020- No [...] 00 :00 dose, Mon Medical 09/28/20 at [place] 1930, STAT maalox:diph 2020- No 15mL 15 mL, Uni vers enhydrAMINE 09-29-10 Oral, ity of :lidocaine 00:30: 23:34 ONCE, 1 [place] 2 % viscous 00 :00 dose, Mon Med ical 1:1:1 09/28/20 at [place] (FIRST-MOUT 1930, HWASH BLM) Routine oral suspension 15 mL pantoprazol 2020- No 40mg 40 mg, IV Univers e 09-29 Piggyback, ity of (PROTONIX) 00:30: 23:54 ONCE, 1 [place] 40 mg in 00 :00 dose, [facility] Medica l NaCl 0.9% 09/28/20 at [facility] ch (NS) 100 mL 193, 100 MINI-BAG mL NaCl 0.9% 2020- No 1000mL at 999 Uni vers (NS) bolus 09-28-11 mL/hr, ity of infusion 23:30: 00:40 1,000 mL, [place] 1,000 mL 00 :00 IV Medical Infusion, [place] ONCE, 1 dose, [facility] 09/28/20 at 1830, PIERRE ondansetron Yes [id number] 4mg Take 1 Univers 4 mg 5-10 tablet by ity of disintegrat 00:00: mouth [place] ing tablet 00 every 8 Medica l (eight) Branch hours as needed for Nausea and Vomiting (N/V). ondansetron 2020-0 Yes [id number] 4mg Take 1 Univers 4 mg 5-10 tablet by ity of disintegrat 00:00: mouth [place] ing tablet 00 every 8 Medica l (eight) Branch hours as needed for Nausea and Vomiting (N/V). ondansetron 2020-0 Yes [id number] 4mg Take 1 Univers 4 mg 5-10 tablet by ity of disintegrat 00:00: mouth [place] ing tablet 00 every 8 Medica l (eight) Branch hours as needed for Nausea and Vomiting (N/V). ondansetron 2020-0 Yes [id number] 4mg Take 1 Univers 4 mg 5-10 tablet by ity of disintegrat 00:00: mouth [place] ing tablet 00 every 8 Medica l (eight) Branch hours as needed for Nausea and Vomiting (N/V). ondansetron 2020-0 Yes 4mg Take 1 Univers 4 mg 5-10 tablet by ity of disintegrat 00:00: mouth [place] ing tablet 00 every 8 Medica l (eight) Branch hours as needed for Nausea and Vomiting (N/V). ondansetron 2020-0 Yes 4mg Take 1 Univers 4 mg 5-10 tablet by ity of disintegrat 00:00: mouth [place] ing tablet 00 every 8 Medica l (eight) Branch hours as needed for Nausea and Vomiting (N/V). ondansetron 2020-0 Yes 4mg Take 1 Univers 4 mg 5-10 tablet by ity of disintegrat 00:00: mouth [place] ing tablet 00 every 8 Medica l (eight) Branch hours as needed for Nausea and Vomiting (N/V). ondansetron 2020-0 Yes 4mg Take 1 Univers 4 mg 5-10 tablet by ity of disintegrat 00:00: mouth [place] ing tablet 00 every 8 Medica l (eight) Branch hours as needed for Nausea and Vomiting (N/V). ondansetron 2020-0 Yes 4mg Take 1 Univers 4 mg 5-10 tablet by ity of disintegrat 00:00: mouth [place] ing tablet 00 every 8 Medica l (eight) Branch hours as needed for Nausea and Vomiting (N/V). ondansetron 2020-0 Yes 4mg Take 1 Univers 4 mg 5-10 tablet by ity of disintegrat 00:00: mouth [place] ing tablet 00 every 8 Medica l (eight) Branch hours as needed for Nausea and Vomiting (N/V). ondansetron 2020-0 Yes 4mg Take 1 Univers 4 mg 5-10 tablet by ity of disintegrat 00:00: mouth [place] ing tablet 00 every 8 Medica l (eight) Branch hours as needed for Nausea and Vomiting (N/V). ondansetron 2020-0 Yes [id number] 4mg Take 1 Univers 4 mg 5-10 tablet by ity of disintegrat 00:00: mouth [place] ing tablet 00 every 8 Medica l (eight) Branch hours as needed for Nausea and Vomiting (N/V). ondansetron Yes [id number] 4mg Take 1 Univers 4 mg 5-10 tablet by ity of disintegrat 00:00: mouth [place] ing tablet 00 every 8 Medica l (eight) Branch hours as needed for Nausea and Vomiting (N/V). ondansetron Yes [id number] 4mg Take 1 Univers 4 mg 5-10 tablet by ity of disintegrat 00:00: mouth [place] ing tablet 00 every 8 Medica l (eight) Branch hours as needed for Nausea and Vomiting (N/V). pantoprazol 2020- No [id number] 40mg Take 1 Univers e 40 mg EC 5-10 06-10 tablet by ity of tablet 00:00: 04:59 mouth [place] 00 :00 daily for Medical 30 days. Branch pantoprazol 2020- No [id number] 40mg Take 1 Univers e 40 mg EC 5-10 06-10 tablet by ity of tablet 00:00: 04:59 mouth [place] 00 :00 daily for Medical 30 days. Branch pantoprazol 2020- No [id number] 40mg Take 1 Univers e 40 mg EC 5-10 06-10 tablet by ity of tablet 00:00: 04:59 mouth [place] 00 :00 daily for Medical 30 days. Branch pantoprazol 2020- No [id number] 40mg Take 1 Univers e 40 mg EC 5-10 06-10 tablet by ity of tablet 00:00: 04:59 mouth [place] 00 :00 daily for Medical 30 days. Branch pantoprazol 2020- No [id number] 40mg Take 1 Univers e 40 mg EC 5-10 06-10 tablet by ity of tablet 00:00: 04:59 mouth [place] 00 :00 daily for Medical 30 days. Branch pantoprazol 2020- No [id number] 40mg Take 1 Univers e 40 mg EC 5-10 06-10 tablet by ity of tablet 00:00: 04:59 mouth [place] 00 :00 daily for Medical 30 days. Branch pantoprazol 2020- No [id number] 40mg Take 1 Univers e 40 mg EC 5-10 06-10 tablet by ity of tablet 00:00: 04:59 mouth [place] 00 :00 daily for Medical 30 days. Branch pantoprazol 2020- No [id number] 40mg Take 1 Univers e 40 mg EC 09-28- tablet by ity of tablet 00:00: 04:59 mouth [place] 00 :00 daily for Medical 30 days. [place] dicyclomine 2020- No [id number] 20mg Take 1 Univers 20 mg 5-10 05-18 tablet by ity of tablet 00:00: 04:59 mouth 4 [place] 00 :00 (four) Medical times [place] daily for 7 days. aspirin 81 2020- No [id number] 81mg Take 1 Univers mg chewable 09-27 tablet by it y of tablet 00:00: 04:59 mouth [place] 00 :00 daily for Medical 30 days. [place] metoprolol 2020- No [id number] 12.5mg Take 0.5 Univers succinate 09-27 tablets by ity of XL 25 mg 24 00:00: 04:59 [place] hr tablet 00 :00 daily for Medic al 30 days. [place] spironolact 2020- No [id number] 25mg Take 1 Univers one 25 mg 09-27 tablet by ity of tablet 00:00: 04:59 mouth [place] 00 :00 daily for Medical 30 days. [place] aspirin 81 2020- No [id number] 81mg Take 1 Univers mg chewable 09-27 tablet by it y of tablet 00:00: 04:59 mouth [place] 00 :00 daily for Medical 30 days. Branch metoprolol 2020- No [id number] 12.5mg Take 0.5 Univers succinate 09-27- tablets by ity of XL 25 mg 24 00:00: 04:59 mouth [place] hr tablet 00 :00 daily for Medic al 30 days. [place] spironolact 2020- No [id number] 25mg Take 1 Univers one 25 mg 09-27 tablet by ity of tablet 00:00: 04:59 mouth [place] 00 :00 daily for Medical 30 days. Branch aspirin 81 2020- No [id number] 81mg Take 1 Univers mg chewable 09-27 tablet by it y of tablet 00:00: 04:59 mouth [place] 00 :00 daily for Medical 30 days. Branch metoprolol 2020- No [id number] 12.5mg Take 0.5 Univers succinate 09-27- tablets by ity of XL 25 mg 24 00:00: 04:59 mouth [place] hr tablet 00 :00 daily for Medic al 30 days. Branch spironolact 2020- No [id number] 25mg Take 1 Univers one 25 mg 09-27- tablet by ity of tablet 00:00: 04:59 mouth [place] 00 :00 daily for Medical 30 days. Branch aspirin 81 2020- No [id number] 81mg Take 1 Univers mg chewable 09-27 tablet by it y of tablet 00:00: 04:59 mouth [place] 00 :00 daily for Medical 30 days. Branch metoprolol 2020- No [id number] 12.5mg Take 0.5 Univers succinate 09-27 tablets by ity of XL 25 mg 24 00:00: 04:59 mouth [place] hr tablet 00 :00 daily for Medic al 30 days. Branch spironolact 2020- No [id number] 25mg Take 1 Univers one 25 mg 09-27 tablet by ity of tablet 00:00: 04:59 mouth [place] 00 :00 daily for Medical 30 days. [place] aspirin 81 2020- No [id number] 81mg Take 1 Univers mg chewable 09-27- tablet by it y of tablet 00:00: 04:59 mouth [place] 00 :00 daily for Medical 30 days. Branch metoprolol 2020- No [id number] 12.5mg Take 0.5 Univers succinate 09-27- tablets by ity of XL 25 mg 24 00:00: 04:59 mouth [place] hr tablet 00 :00 daily for Medic al 30 days. Branch spironolact 2020- No [id number] 25mg Take 1 Univers one 25 mg 09-27- tablet by ity of tablet 00:00: 04:59 mouth [place] 00 :00 daily for Medical 30 days. Branch aspirin 81 2020- No [id number] 81mg Take 1 Univers mg chewable 09-27 tablet by it y of tablet 00:00: 04:59 mouth [place] 00 :00 daily for Medical 30 days. Branch metoprolol 2020- No [id number] 12.5mg Take 0.5 Univers succinate 09-27- tablets by ity of XL 25 mg 24 00:00: 04:59 mouth [place] hr tablet 00 :00 daily for Medic al 30 days. Branch spironolact 2020- No [id number] 25mg Take 1 Univers one 25 mg 09-27 tablet by ity of tablet 00:00: 04:59 mouth [place] 00 :00 daily for Medical 30 days. Robert aspirin 81 2020- No [id number] 81mg Take 1 Univers mg chewable 09-27 tablet by it y of tablet 00:00: 04:59 mouth [place] 00 :00 daily for Medical 30 days. Branch metoprolol 2020- No [id number] 12.5mg Take 0.5 Univers succinate 09-27 tablets by ity of XL 25 mg 24 00:00: 04:59 mouth [place] hr tablet 00 :00 daily for Medic al 30 days. [place] spironolact 2020- No [id number] 25mg Take 1 Univers one 25 mg 09-27 tablet by ity of tablet 00:00: 04:59 mouth [place] 00 :00 daily for Medical 30 days. [place] aspirin 81 2020- No [id number] 81mg Take 1 Univers mg chewable 09-27 tablet by it y of tablet 00:00: 04:59 mouth [place] 00 :00 daily for Medical 30 days. Branch metoprolol 2020- No [id number] 12.5mg Take 0.5 Univers succinate 09-27- tablets by ity of XL 25 mg 24 00:00: 04:59 mouth [place] hr tablet 00 :00 daily for Medic al 30 days. Branch spironolact 2020- No [id number] 25mg Take 1 Univers one 25 mg 09-27 tablet by ity of tablet 00:00: 04:59 mouth [place] 00 :00 daily for Medical 30 days. Branch aspirin 81 2020- No [id number] 81mg Take 1 Univers mg chewable 09-27 tablet by it y of tablet 00:00: 04:59 mouth [place] 00 :00 daily for Medical 30 days. Branch metoprolol 2020- No [id number] 12.5mg Take 0.5 Univers succinate 09-27 tablets by ity of XL 25 mg 24 00:00: 04:59 mouth [place] hr tablet 00 :00 daily for Medic al 30 days. Branch spironolact 2020- No [id number] 25mg Take 1 Univers one 25 mg [...] 40mg Take 40 mg Univers 40 mg 508 05-08 by mouth ity of tablet 20:49: 00:00 at [place] 55 :00 bedtime. Medical Branch omeprazole 2020- No 20mg Take 20 mg Univers 20 mg 09-26 05-08 by mouth ity of capsule 20:49: [...] mouth ity of tablet 20:49: 00:00 at [place] 55 :00 bedtime. Medical Branch cyclobenzap 2020- [...] 0900, Until Discontinu ed, Routine furosemide Yes [id number] 40mg Take 1 Univers 40 mg 5-08 tablet by ity of tablet 00:00: mouth [place] 00 every Medical morning Branch and evening. cyclobenzap Yes [id number] 10mg Take 1 Univers rine 10 mg 5-08 tablet by ity of tablet 00:00: mouth 2 [place] [address] (two) Medical times Branch daily as needed for Muscle Spasms. albuterol Yes [id number] 2{puff} Inhale 2 Univers 90 5-08 Puffs 2 ity of mcg/actuati 00:00: (two) [place] on inhaler 00 times Medical daily. Branch apixaban 5 Yes 1358 5mg Take 1 Unive rs mg tablet 5-08 tablet by ity o f 00:00: mouth 2 [place] 00 (two) Medical times Branch daily. Indication s: atrial fibrillati on furosemide 2020- Yes [id number] 40mg Take 1 Univers 40 mg 5-08 tablet by ity of tablet 00:00: mouth [place] 00 every Medical morning Branch and evening. cyclobenzap 2020- Yes [id number] 10mg Take 1 Univers rine 10 mg 5-08 tablet by ity of tablet 00:00: mouth 2 [place] 00 (two) Medical times Branch daily as needed for Muscle Spasms. albuterol 2020- Yes [id number] 2{puff} Inhale 2 Univers 90 5-08 Puffs 2 ity of mcg/actuati 00:00: (two) [place] on inhaler 00 times Medical daily. Branch apixaban 5 2020-0 Yes 1358 5mg Take 1 Unive rs mg tablet 5-08 tablet by ity o f 00:00: mouth 2 [place] (two) Medical times Branch daily. Indication s: atrial fibrillati on furosemide 2020-0 Yes [id number] 40mg Take 1 Univers 40 mg 5-08 tablet by ity of tablet 00:00: mouth [place] 00 every Medical morning Branch and evening. cyclobenzap 2020-0 Yes [id number] 10mg Take 1 Univers rine 10 mg 5-08 tablet by ity of tablet 00:00: mouth 2 (two) Medical times Branch daily as needed for Muscle Spasms. albuterol 2020- Yes [id number] 2{puff} Inhale 2 Univers 90 5-08 Puffs 2 ity of mcg/actuati 00:00: (two) [place] on inhaler 00 times Medical daily. Branch apixaban 5 0 Yes 1358 5mg Take 1 Unive rs mg tablet 5-08 tablet by ity o f 00:00: mouth 2 (two) Medical times Branch daily. Indication s: atrial fibrillati on furosemide 2020-0 Yes [id number] 40mg Take 1 Univers 40 mg 5-08 tablet by ity of tablet 00:00: mouth [place] 00 every Medical morning Branch and evening. cyclobenzap 2020-0 Yes [id number] 10mg Take 1 Univers rine 10 mg 5-08 tablet by ity of tablet 00:00: mouth 2 [place] (two) Medical times Branch daily as needed for Muscle Spasms. albuterol 2020-0 Yes [id number] 2{puff} Inhale 2 Univers 90 5-08 Puffs 2 ity of mcg/actuati 00:00: (two) [place] on inhaler 00 times Medical daily. Branch apixaban 5 2020-0 Yes 1358 5mg Take 1 Unive rs mg tablet 5-08 tablet by ity o f 00:00: mouth 2 [place] (two) Medical times Branch daily. Indication s: atrial fibrillati on furosemide 2020-0 Yes [id number] 40mg Take 1 Univers 40 mg 5-08 tablet by ity of tablet 00:00: mouth [place] 00 every Medical morning Branch and evening. cyclobenzap 2020-0 Yes [id number] 10mg Take 1 Univers rine 10 mg 5-08 tablet by ity of tablet 00:00: mouth 2 (two) Medical times Branch daily as needed for Muscle Spasms. albuterol 2020-0 Yes [id number] 2{puff} Inhale 2 Univers 90 5-08 Puffs 2 ity of mcg/actuati 00:00: (two) [place] on inhaler 00 times Medical daily. Branch apixaban 5 2020-0 Yes 1358 5mg Take 1 Unive rs mg tablet 5-08 tablet by ity o f 00:00: mouth 2 (two) Medical times Branch daily. Indication s: atrial fibrillati on furosemide 2020-0 Yes [id number] 40mg Take 1 Univers 40 mg 5-08 tablet by ity of tablet 00:00: mouth 00 every Medical morning Branch and evening. cyclobenzap 2020-0 Yes [id number] 10mg Take 1 Univers rine 10 mg 5-08 tablet by ity of tablet 00:00: mouth (two) Medical times Branch daily as needed for Muscle Spasms. albuterol 2020-0 Yes [id number] 2{puff} Inhale 2 Univers 90 5-08 Puffs 2 ity of mcg/actuati 00:00: (two) [place] on inhaler 00 times Medical daily. Branch apixaban 5 2020-0 Yes 1358 5mg Take 1 Unive rs mg tablet 5-08 tablet by ity o f 00:00: mouth (two) Medical times Branch daily. Indication s: atrial fibrillati on furosemide 2020-0 Yes [id number] 40mg Take 1 Univers 40 mg 5-08 tablet by ity of tablet 00:00: mouth 00 every Medical morning Branch and evening. cyclobenzap 2020-0 Yes [id number] 10mg Take 1 Univers rine 10 mg 5-08 tablet by ity of tablet 00:00: mouth 2 (two) Medical times Branch daily as needed for Muscle Spasms. albuterol 2020-0 Yes [id number] 2{puff} Inhale 2 Univers 90 5-08 Puffs 2 ity of mcg/actuati 00:00: (two) [place] on inhaler 00 times Medical daily. Branch apixaban 5 2020-0 Yes 1358 5mg Take 1 Unive rs mg tablet 5-08 tablet by ity o f 00:00: mouth 2 (two) Medical times Branch daily. Indication s: atrial fibrillati on furosemide 2020-0 Yes [id number] 40mg Take 1 Univers 40 mg 5-08 tablet by ity of tablet 00:00: mouth [place] 00 every Medical morning Branch and evening. cyclobenzap 2020-0 Yes [id number] 10mg Take 1 Univers rine 10 mg 5-08 tablet by ity of tablet 00:00: mouth 2 (two) Medical times Branch daily as needed for Muscle Spasms. albuterol 2020-0 Yes [id number] 2{puff} Inhale 2 Univers 90 5-08 Puffs 2 ity of mcg/actuati 00:00: (two) [place] on inhaler 00 times Medical daily. Branch apixaban 5 2020-0 Yes 1358 5mg Take 1 Unive rs mg tablet 5-08 tablet by ity o f 00:00: mouth 2 (two) Medical times Branch daily. Indication s: atrial fibrillati on furosemide 2020-0 Yes [id number] 40mg Take 1 Univers 40 mg 5-08 tablet by ity of tablet 00:00: mouth [place] 00 every Medical morning Branch and evening. cyclobenzap 2020-0 Yes [id number] 10mg Take 1 Univers rine 10 mg 5-08 tablet by ity of tablet 00:00: mouth 2 (two) Medical times Branch daily as needed for Muscle Spasms. albuterol 2020-0 Yes [id number] 2{puff} Inhale 2 Univers 90 5-08 Puffs 2 ity of mcg/actuati 00:00: (two) [place] on inhaler 00 times Medical daily. Branch apixaban 5 2020-0 Yes 1358 5mg Take 1 Unive rs mg tablet 5-08 tablet by ity o f 00:00: mouth 2 [place] (two) Medical times Branch daily. Indication s: atrial fibrillati on furosemide 2020-0 Yes [id number] 40mg Take 1 Univers 40 mg 5-08 tablet by ity of tablet 00:00: mouth [place] 00 every Medical morning Branch and evening. cyclobenzap 2021-0 Yes [id number] 10mg Take 1 Univers rine 10 mg 5-08 tablet by ity of tablet 00:00: mouth 2 (two) Medical times Branch daily as needed for Muscle Spasms. albuterol 0 Yes [id number] 2{puff} Inhale 2 Univers 90 5-08 Puffs 2 ity of mcg/actuati 00:00: (two) [place] on inhaler 00 times Medical daily. Branch apixaban 5 0 Yes 1358 5mg Take 1 Unive rs mg tablet 5-08 tablet by ity o f 00:00: mouth 2 (two) Medical times Branch daily. Indication s: atrial fibrillati on furosemide Yes [id number] 40mg Take 1 Univers 40 mg 5-08 tablet by ity of tablet 00:00: mouth 00 every Medical morning Branch and evening. cyclobenzap Yes [id number] 10mg Take 1 Univers rine 10 mg 5-08 tablet by ity of tablet 00:00: mouth (two) Medical times Branch daily as needed for Muscle Spasms. albuterol Yes [id number] 2{puff} Inhale 2 Univers 90 5-08 Puffs 2 ity of mcg/actuati 00:00: (two) [place] on inhaler 00 times Medical daily. Branch apixaban 5 0 Yes 1358 5mg Take 1 Unive rs mg tablet 5-08 tablet by ity o f 00:00: mouth 2 (two) Medical times Branch daily. Indication s: atrial fibrillati on furosemide 0 Yes [id number] 40mg Take 1 Univers 40 mg 5-08 tablet by ity of tablet 00:00: mouth 00 every Medical morning Branch and evening. cyclobenzap 2020- Yes [id number] 10mg Take 1 Univers rine 10 mg 5-08 tablet by ity of tablet 00:00: mouth 2 (two) Medical times Branch daily as needed for Muscle Spasms. albuterol 2020-0 Yes [id number] 2{puff} Inhale 2 Univers 90 5-08 Puffs 2 ity of mcg/actuati 00:00: (two) [place] on inhaler 00 times Medical daily. Branch apixaban 5 2020-0 Yes 1358 5mg Take 1 Unive rs mg tablet 5-08 tablet by ity o f 00:00: mouth 2 (two) Medical times Branch daily. Indication s: atrial fibrillati on furosemide 2020-0 Yes [id number] 40mg Take 1 Univers 40 mg 5-08 tablet by ity of tablet 00:00: mouth [place] 00 every Medical morning Branch and evening. cyclobenzap 2020-0 Yes [id number] 10mg Take 1 Univers rine 10 mg 5-08 tablet by ity of tablet 00:00: mouth 2 [place] (two) Medical times Branch daily as needed for Muscle Spasms. albuterol 2020-0 Yes [id number] 2{puff} Inhale 2 Univers 90 5-08 Puffs 2 ity of mcg/actuati 00:00: (two) [place] on inhaler 00 times Medical daily. Branch apixaban 5 2020-0 Yes 1358 5mg Take 1 Unive rs mg tablet 5-08 tablet by ity o f 00:00: mouth 2 (two) Medical times Branch daily. Indication s: atrial fibrillati on furosemide 0 Yes [id number] 40mg Take 1 Univers 40 mg 5-08 tablet by ity of tablet 00:00: mouth [place] 00 every Medical morning Branch and evening. cyclobenzap 2020-0 Yes [id number] 10mg Take 1 Univers rine 10 mg 5-08 tablet by ity of tablet 00:00: mouth 2 (two) Medical times Branch daily as needed for Muscle Spasms. albuterol 2020-0 Yes [id number] 2{puff} Inhale 2 Univers 90 5-08 Puffs 2 ity of mcg/actuati 00:00: (two) [place] on inhaler 00 times Medical daily. Branch apixaban 5 2020-0 Yes 1358 5mg Take 1 Unive rs mg tablet 5-08 tablet by ity o f 00:00: mouth 2 (two) Medical times Branch daily. Indication s: atrial fibrillati on furosemide 2020-0 Yes [id number] 40mg Take 1 Univers 40 mg 5-08 tablet by ity of tablet 00:00: mouth [place] 00 every Medical morning Branch and evening. cyclobenzap 2020-0 Yes [id number] 10mg Take 1 Univers rine 10 mg 5-08 tablet by ity of tablet 00:00: mouth 2 (two) Medical times Branch daily as needed for Muscle Spasms. albuterol Yes [id number] 2{puff} Inhale 2 Univers 90 5-08 Puffs 2 ity of mcg/actuati 00:00: (two) [place] on inhaler 00 times Medical daily. Branch apixaban 5 Yes 1358 5mg Take 1 Unive rs mg tablet 5-08 tablet by ity o f 00:00: mouth 2 00 (two) Medical times Branch daily. Indication s: atrial fibrillati on furosemide Yes [id number] 40mg Take 1 Univers 40 mg 5-08 tablet by ity of tablet 00:00: mouth [place] 00 every Medical morning Branch and evening. cyclobenzap Yes [id number] 10mg Take 1 Univers rine 10 mg 5-08 tablet by ity of tablet 00:00: mouth 2 00 (two) Medical times Branch daily as needed for Muscle Spasms. albuterol Yes [id number] 2{puff} Inhale 2 Univers 90 5-08 Puffs 2 ity of mcg/actuati 00:00: (two) [place] on inhaler 00 times Medical daily. Branch apixaban 5 Yes 1358 5mg Take 1 Unive rs mg tablet 5-08 tablet by ity o f 00:00: mouth 2 00 (two) Medical times Branch daily. Indication s: atrial fibrillati on docusate 2020-2020- No [id number] 100mg Take 1 Univers 100 mg 5-08 [...] numbness or pain from nerve damage atorvastati 2020-2020- No [id number] 40mg Take 1 Univers n 40 mg 5-08 06-08 tablet by ity of tablet 00:00: 04:59 mouth at [place] 00 :00 bedtime Medical for 30 Branch days. levothyroxi 2020- No [id number] 50ug Take 1 Univers ne 50 mcg 09-26-08 tablet by ity of tablet 00:00: 04:59 mouth [place] 00 :00 every Medical morning Branch for 30 days. lisinopriL 2020- No [id number] 2.5mg Take 1 Univers 2.5 mg 5-08 tablet by ity of tablet 00:00: 04:59 mouth [place] 00 :00 daily for Medical 30 days. Branch metformin 2020- No [id number] 500mg Take 1 Univers ER 500 mg 5-08 tablet by ity of 24 hr 00:00: 04:59 mouth [place] tablet 00 :00 daily with Medical breakfast Branch for 30 days. omeprazole 2020- No [id number] 20mg Take 1 Univers 20 mg 09-26-08 capsule by ity of capsule 00:00: 04:59 mouth [place] 00 :00 daily for Medical 30 days. Branch simvastatin 2020- No [id number] 40mg Take 1 [facility] 40 mg 09-26-08 tablet by ity of tablet 00:00: 04:59 mouth at [place] 00 :00 bedtime Medical for 30 Branch days. sennosides 2020- No [id number] 8.6mg Take 1 Univers 8.6 mg 09-26-08 tablet by ity of tablet 00:00: 04:59 mouth 2 [place] 00 :00 (two) Medical times Branch daily for 30 days. tamsulosin 2020- No [id number] .4mg Take 1 Univers 0.4 mg 24 -12 25-08 capsule by ity of hr capsule 00:00: 04:59 mouth 2 [place] 00 :00 (two) Medical times Branch daily for 30 days. venlafaxine 2020- No [id number] 75mg Take 1 [facility] 75 mg 5-08 06-08 tablet by ity of tablet 00:00: 04:59 mouth 2 [place] 00 :00 (two) Medical times Branch daily for 30 days. docusate 2020- No [id number] 100mg Take 1 [facility] 100 mg 5-08 [...] pain from nerve damage atorvastati 2020- No [id number] 40mg Take 1 [facility] n 40 mg 5-12 25-08 tablet by ity of tablet 00:00: 04:59 mouth at [place] 00 :00 bedtime Medical for 30 Branch days. levothyroxi 2020- No [id number] 50ug Take 1 [facility] ne 50 mcg 09-26-08 tablet by ity of tablet 00:00: 04:59 mouth [place] 00 :00 every Medical morning Branch for 30 days. lisinopriL 2020- No [id number] 2.5mg Take 1 [facility] 2.5 mg 09-26-08 tablet by ity of tablet 00:00: 04:59 mouth [place] 00 :00 daily for Medical 30 days. Branch metformin 2020- No [id number] 500mg Take 1 [facility] ER 500 mg 09-26-08 tablet by ity of 24 hr 00:00: 04:59 mouth [place] tablet 00 :00 daily with Medical breakfast Branch for 30 days. omeprazole 2020- No [id number] 20mg Take 1 [facility] 20 mg 09-26-08 capsule by ity of capsule 00:00: 04:59 mouth [place] 00 :00 daily for Medical 30 days. Branch simvastatin 2020- No [id number] 40mg Take 1 [facility] 40 mg -12 25-08 tablet by ity of tablet 00:00: 04:59 mouth at [place] 00 :00 bedtime Medical for 30 Branch days. sennosides 2020- No [id number] 8.6mg Take 1 [facility] 8.6 mg 5- 06-08 tablet by ity of tablet 00:00: 04:59 mouth 2 [place] 00 :00 (two) Medical times Branch daily for 30 days. tamsulosin 2020- No [id number] .4mg Take 1 [facility] 0.4 mg 24 -12 25-08 capsule by ity of hr capsule 00:00: 04:59 mouth 2 [place] 00 :00 (two) Medical times Branch daily for 30 days. venlafaxine 2020- No [id number] 75mg Take 1 [facility] 75 mg 5-12 25-08 tablet by ity of tablet 00:00: 04:59 mouth 2 [place] 00 :00 (two) Medical times Branch daily for 30 days. docusate 2020- No [id number] 100mg Take 1 [facility] 100 mg 09-26-08 [...] pain from nerve damage atorvastati 2020- No [id number] 40mg Take 1 [facility] n 40 mg 09-26-08 tablet by ity of tablet 00:00: 04:59 mouth at [place] 00 :00 bedtime Medical for 30 Branch days. levothyroxi 2020- No [id number] 50ug Take 1 [facility] ne 50 mcg 09-26-08 tablet by ity of tablet 00:00: 04:59 mouth [place] 00 :00 every Medical morning Branch for 30 days. lisinopriL 2020- No [id number] 2.5mg Take 1 [facility] 2.5 mg 09-26-08 tablet by ity of tablet 00:00: 04:59 mouth [place] 00 :00 daily for Medical 30 days. Branch metformin 2020- No [id number] 500mg Take 1 [facility] ER 500 mg 09-26-08 tablet by ity of 24 hr 00:00: 04:59 mouth [place] tablet 00 :00 daily with Medical breakfast Branch for 30 days. omeprazole 2020- No [id number] 20mg Take 1 [facility] 20 mg 5-12 25-08 capsule by ity of capsule 00:00: 04:59 mouth [place] 00 :00 daily for Medical 30 days. Branch simvastatin 2020- No [id number] 40mg Take 1 [facility] 40 mg 5-12 25-08 tablet by ity of tablet 00:00: 04:59 mouth at [place] 00 :00 bedtime Medical for 30 Branch days. sennosides 2020- No [id number] 8.6mg Take 1 [facility] 8.6 mg 5-12 25-08 tablet by ity of tablet 00:00: 04:59 mouth 2 [place] 00 :00 (two) Medical times Branch daily for 30 days. tamsulosin 2020- No [id number] .4mg Take 1 [facility] 0.4 mg 24 09-26-08 capsule by ity of hr capsule 00:00: 04:59 mouth 2 [place] 00 :00 (two) Medical times Branch daily for 30 days. venlafaxine 2020- No [id number] 75mg Take 1 [facility] 75 mg -12 25-08 tablet by ity of tablet 00:00: 04:59 mouth 2 [place] 00 :00 (two) Medical times Branch daily for 30 days. docusate 2020- No [id number] 100mg Take 1 [facility] 100 mg 09-26-08 [...] pain from nerve damage atorvastati 2020- No [id number] 40mg Take 1 [facility] n 40 mg 5-12 25-08 tablet by ity of tablet 00:00: 04:59 mouth at [place] 00 :00 bedtime Medical for 30 Branch days. levothyroxi 2020- No [id number] 50ug Take 1 [facility] ne 50 mcg 5-12 25-08 tablet by ity of tablet 00:00: 04:59 mouth [place] 00 :00 every Medical morning Branch for 30 days. lisinopriL 2020- No [id number] 2.5mg Take 1 [facility] 2.5 mg 5-08 06-08 tablet by ity of tablet 00:00: 04:59 mouth [place] 00 :00 daily for Medical 30 days. Branch metformin 2020- No [id number] 500mg Take 1 [facility] ER 500 mg 5-08 06-08 tablet by ity of 24 hr 00:00: 04:59 mouth [place] tablet 00 :00 daily with Medical breakfast Branch for 30 days. omeprazole 2020- No [id number] 20mg Take 1 [facility] 20 mg 5-08 06-08 capsule by ity of capsule 00:00: 04:59 mouth [place] 00 :00 daily for Medical 30 days. Branch simvastatin 2020- No [id number] 40mg Take 1 [facility] 40 mg 5-08 06-08 tablet by ity of tablet 00:00: 04:59 mouth at [place] 00 :00 bedtime Medical for 30 Branch days. sennosides 2020- No [id number] 8.6mg Take 1 [facility] 8.6 mg 5-08 06-08 tablet by ity of tablet 00:00: 04:59 mouth 2 [place] 00 :00 (two) Medical times Branch daily for 30 days. tamsulosin 2020- No [id number] .4mg Take 1 [facility] 0.4 mg 24 5- 06-08 capsule by ity of hr capsule 00:00: 04:59 mouth 2 [place] 00 :00 (two) Medical times Branch daily for 30 days. venlafaxine 2020- No [id number] 75mg Take 1 [facility] 75 mg 5-08 06-08 tablet by ity of tablet 00:00: 04:59 mouth 2 [place] 00 :00 (two) Medical times Branch daily for 30 days. docusate 2020- No [id number] 100mg Take 1 [facility] 100 mg 5-08 [...] pain from nerve damage atorvastati 2020- No [id number] 40mg Take 1 [facility] n 40 mg 5-08 tablet by ity of tablet 00:00: 04:59 mouth at [place] 00 :00 bedtime Medical for 30 Branch days. levothyroxi 2020- No [id number] 50ug Take 1 [facility] ne 50 mcg 09-26-08 tablet by ity of tablet 00:00: 04:59 mouth [place] 00 :00 every Medical morning Branch for 30 days. lisinopriL 2020- No [id number] 2.5mg Take 1 [facility] 2.5 mg 09-26-08 tablet by ity of tablet 00:00: 04:59 mouth [place] 00 :00 daily for Medical 30 days. Branch metformin 2020- No [id number] 500mg Take 1 [facility] ER 500 mg 09-26-08 tablet by ity of 24 hr 00:00: 04:59 mouth [place] tablet 00 :00 daily with Medical breakfast Branch for 30 days. omeprazole 2020- No [id number] 20mg Take 1 [facility] 20 mg 09-26-08 capsule by ity of capsule 00:00: 04:59 mouth [place] 00 :00 daily for Medical 30 days. Branch simvastatin 2020- No [id number] 40mg Take 1 [facility] 40 mg 09-26-08 tablet by ity of tablet 00:00: 04:59 mouth at [place] 00 :00 bedtime Medical for 30 Branch days. sennosides 2020- No [id number] 8.6mg Take 1 [facility] 8.6 mg 09-26-08 tablet by ity of tablet 00:00: 04:59 mouth 2 [place] 00 :00 (two) Medical times Branch daily for 30 days. tamsulosin 2020- No [id number] .4mg Take 1 [facility] 0.4 mg 24 09-26-08 capsule by ity of hr capsule 00:00: 04:59 mouth 2 [place] 00 :00 (two) Medical times Branch daily for 30 days. venlafaxine 2020- No [id number] 75mg Take 1 [facility] 75 mg 5-12 25-08 tablet by ity of tablet 00:00: 04:59 mouth 2 [place] 00 :00 (two) Medical times Branch daily for 30 days. docusate 2020- No [id number] 100mg Take 1 [facility] 100 mg 5-12 25-08 capsule by ity of capsule 00:00: 04:59 mouth 2 [place] 00 :00 (two) Medical times Branch daily for 30 days. gabapentin 2020- No [id number] 800mg Take 1 [facility] vers 800 mg 5-12 25-08 tablet by ity of tablet 00:00: 04:59 mouth 3 [place] 00 :00 (three) Medical times Branch daily for 30 days. Indication s: weakness, numbness or pain from nerve damage atorvastati 2020- No [id number] 40mg Take 1 [facility] n 40 mg 5-12 25-08 tablet by ity of tablet 00:00: 04:59 mouth at [place] 00 :00 bedtime Medical for 30 Branch days. levothyroxi 2020- No [id number] 50ug Take 1 [facility] ne 50 mcg 09-26-08 tablet by ity of tablet 00:00: 04:59 mouth [place] 00 :00 every Medical morning Branch for 30 days. lisinopriL 2020- No [id number] 2.5mg Take 1 [facility] 2.5 mg 09-26-08 tablet by ity of tablet 00:00: 04:59 mouth [place] 00 :00 daily for Medical 30 days. Branch metformin 2020- No [id number] 500mg Take 1 [facility] ER 500 mg 09-26-08 tablet by ity of 24 hr 00:00: 04:59 mouth [place] tablet 00 :00 daily with Medical breakfast Branch for 30 days. omeprazole 2020- No [id number] 20mg Take 1 [facility] 20 mg 5-12 25-08 capsule by ity of capsule 00:00: 04:59 mouth [place] 00 :00 daily for Medical 30 days. Branch simvastatin 2020- No [id number] 40mg Take 1 [facility] 40 mg 5-12 25-08 tablet by ity of tablet 00:00: 04:59 mouth at [place] 00 :00 bedtime Medical for 30 Branch days. sennosides 2020- No [id number] 8.6mg Take 1 [facility] 8.6 mg 5-08 tablet by ity of tablet 00:00: 04:59 mouth 2 [place] 00 :00 (two) Medical times Branch daily for 30 days. tamsulosin 2020- No [id number] .4mg Take 1 [facility] 0.4 mg 24 5-08 capsule by ity of hr capsule 00:00: 04:59 mouth 2 [place] 00 :00 (two) Medical times Branch daily for 30 days. venlafaxine 2020- No [id number] 75mg Take 1 [facility] 75 mg 5-08 tablet by ity of tablet 00:00: 04:59 mouth 2 [place] 00 :00 (two) Medical times [place] daily for 30 days. docusate 2020- No [id number] 100mg Take 1 [facility] 100 mg 09-26-08 capsule by ity of capsule 00:00: 04:59 mouth 2 [place] 00 :00 (two) Medical times Branch daily for 30 days. gabapentin 2020- No [id number] 800mg Take 1 [facility] vers 800 mg 09-26-08 tablet by ity of tablet 00:00: 04:59 mouth 3 [place] 00 :00 (three) Medical times [place] daily for 30 days. Indication s: weakness, numbness or pain from nerve damage atorvastati 2020- No [id number] 40mg Take 1 [facility] n 40 mg 09-26-08 tablet by ity of tablet 00:00: 04:59 mouth at [place] 00 :00 bedtime Medical for 30 Branch days. levothyroxi 2020- No [id number] 50ug Take 1 [facility] ne 50 mcg 09-26-08 tablet by ity of tablet 00:00: 04:59 mouth [place] 00 :00 every Medical morning Branch for 30 days. lisinopriL 2020- No [id number] 2.5mg Take 1 [facility] 2.5 mg 5-08 tablet by ity of tablet 00:00: 04:59 mouth [place] 00 :00 daily for Medical 30 days. Branch metformin 2020- No [id number] 500mg Take 1 [facility] ER 500 mg 5-08 06-08 tablet by ity of 24 hr 00:00: 04:59 mouth [place] tablet 00 :00 daily with Medical breakfast Branch for 30 days. omeprazole 2020- No [id number] 20mg Take 1 [facility] 20 mg 5-08 06-08 capsule by ity of capsule 00:00: 04:59 mouth [place] 00 :00 daily for Medical 30 days. Branch simvastatin 2020- No [id number] 40mg Take 1 [facility] 40 mg 5-08 06-08 tablet by ity of tablet 00:00: 04:59 mouth at [place] 00 :00 bedtime Medical for 30 Branch days. sennosides 2020- No [id number] 8.6mg Take 1 [facility] 8.6 mg 5-08 06-08 tablet by ity of tablet 00:00: 04:59 mouth 2 [place] 00 :00 (two) Medical times Branch daily for 30 days. tamsulosin 2020- No [id number] .4mg Take 1 [facility] 0.4 mg 24 -12 25-08 capsule by ity of hr capsule 00:00: 04:59 mouth 2 [place] 00 :00 (two) Medical times Branch daily for 30 days. venlafaxine 2020- No [id number] 75mg Take 1 [facility] 75 mg 5-08 06-08 tablet by ity of tablet 00:00: 04:59 mouth 2 [place] 00 :00 (two) Medical times Branch daily for 30 days. docusate 2020- No [id number] 100mg Take 1 [facility] 100 mg 5-08 -08 capsule by ity of capsule 00:00: 04:59 [...] pain from nerve damage atorvastati 2020- No [id number] 40mg Take 1 [facility] n 40 mg 5-08 06-08 tablet by ity of tablet 00:00: 04:59 mouth at [place] 00 :00 bedtime Medical for 30 Branch days. levothyroxi 2020- No [id number] 50ug Take 1 [facility] ne 50 mcg 5-08 tablet by ity of tablet 00:00: 04:59 mouth [place] 00 :00 every Medical morning Branch for 30 days. lisinopriL 2020- No [id number] 2.5mg Take 1 [facility] 2.5 mg 5 06-08 tablet by ity of tablet 00:00: 04:59 mouth [place] 00 :00 daily for Medical 30 days. Branch metformin 2020- No [id number] 500mg Take 1 [facility] ER 500 mg 5-12 25-08 tablet by ity of 24 hr 00:00: 04:59 mouth [place] tablet 00 :00 daily with Medical breakfast Branch for 30 days. omeprazole 2020- No [id number] 20mg Take 1 [facility] 20 mg 09-26-08 capsule by ity of capsule 00:00: 04:59 mouth [place] 00 :00 daily for Medical 30 days. Branch simvastatin 2020- No [id number] 40mg Take 1 [facility] 40 mg 5-12 25-08 tablet by ity of tablet 00:00: 04:59 mouth at [place] 00 :00 bedtime Medical for 30 Branch days. sennosides 2020- No [id number] 8.6mg Take 1 [facility] 8.6 mg 5-12 25-08 tablet by ity of tablet 00:00: 04:59 mouth 2 [place] 00 :00 (two) Medical times Branch daily for 30 days. tamsulosin 2020- No [id number] .4mg Take 1 [facility] 0.4 mg 24 5-12 25-08 capsule by ity of hr capsule 00:00: 04:59 mouth 2 [place] 00 :00 (two) Medical times Branch daily for 30 days. venlafaxine 2020- No [id number] 75mg Take 1 [facility] 75 mg 5-08 06-08 tablet by ity of tablet 00:00: 04:59 mouth 2 [place] 00 :00 (two) Medical times Branch daily for 30 days. docusate 2020- No [id number] 100mg Take 1 [facility] 100 mg 5-08 [...] pain from nerve damage atorvastati 2020- No [id number] 40mg Take 1 [facility] n 40 mg 5-12 25-08 tablet by ity of tablet 00:00: 04:59 mouth at [place] 00 :00 bedtime Medical for 30 Branch days. levothyroxi 2020- No [id number] 50ug Take 1 [facility] ne 50 mcg 09-26-08 tablet by ity of tablet 00:00: 04:59 mouth [place] 00 :00 every Medical morning Branch for 30 days. lisinopriL 2020- No [id number] 2.5mg Take 1 [facility] 2.5 mg 09-26-08 tablet by ity of tablet 00:00: 04:59 mouth [place] 00 :00 daily for Medical 30 days. Branch metformin 2020- No [id number] 500mg Take 1 [facility] ER 500 mg 09-26-08 tablet by ity of 24 hr 00:00: 04:59 mouth [place] tablet 00 :00 daily with Medical breakfast Branch for 30 days. omeprazole 2020- No [id number] 20mg Take 1 [facility] 20 mg 09-26-08 capsule by ity of capsule 00:00: 04:59 mouth [place] 00 :00 daily for Medical 30 days. Branch simvastatin 2020- No [id number] 40mg Take 1 [facility] 40 mg 09-26-08 tablet by ity of tablet 00:00: 04:59 mouth at [place] 00 :00 bedtime Medical for 30 Branch days. sennosides 2020- No [id number] 8.6mg Take 1 [facility] 8.6 mg 5-12 25-08 tablet by ity of tablet 00:00: 04:59 mouth 2 [place] 00 :00 (two) Medical times Branch daily for 30 days. tamsulosin 2020- No [id number] .4mg Take 1 [facility] 0.4 mg 24 09-26- capsule by ity of hr capsule 00:00: 04:59 mouth 2 [place] 00 :00 (two) [facility] daily for 30 days. venlafaxine 2020- No [id number] 75mg Take 1 [facility] 75 mg 09-26-08 tablet by ity of tablet 00:00: 04:59 mouth 2 [place] 00 :00 (two) [facility] times [place] daily for 30 days. atorvastati Yes 40mg 40 mg, Univ ers n (LIPITOR) 5-07 Oral, QHS, it y of tablet 40 02:00: First dose [place] mg 00 on [facility] 09/24/20 at Branch 2100, Until Discontinu ed, Routine spironolact Yes 25mg 25 mg, Univ ers one - Oral, ity of (ALDACTONE) 14:00: DAILY, [place] tablet 25 00 First dose Medi uriel mg on [facility] 09/24/20 at 0900, Until Discontinu ed, Routine metoprolol Yes 12.5mg 12.5 mg, U nivers succinate 09-24 Oral, ity of XL (TOPROL 14:00: DAILY, [place] XL) tablet 00 First dose Med ical 12.[address] [facility] 09/24/20 at 0900, Until Discontinu ed, Routine venlafaxine Yes 75mg 75 mg, Univ ers (EFFEXOR) 5-06 Oral, BID, ity of tablet 75 13:00: First dose [place] mg 00 on [facility] 09/24/20 at Branch 0800, Until Discontinu ed, Routine tamsulosin Yes .4mg 0.4 mg, Univ ers (FLOMAX) 5-06 Oral, BID, ity o f capsule 0.4 13:00: First dose [place] mg 00 on [facility] 09/24/20 at Branch 0800, Until Discontinu ed, Routine gabapentin Yes 989 800mg 800 mg, Uni vers (NEURONTIN) 5-06 Oral, TID, it y of tablet 800 13:00: First dose [place] mg 00 on [facility] 09/24/20 at Branch 0800, Until Discontinu ed, Routine apixaban Yes 1358 5mg 5 mg, Univers (ELIQUIS) 5-06 Oral, BID, ity of tablet 5 mg 13:00: First dose [place] 00 on [facility] 09/24/20 at Branch 0800, Until Discontinu ed, Routine Sliding Yes Subcutaneo Univ ers Scale 5-06 us, TID ity of Insulin - 13:00: MEALS, [place] Lispro 00 First dose Medical (HumaLOG) + on [facility] 09/24/20 at Testing 0800, Until Discontinu ed, Routine insulin NPH 2020- No 7U 7 Units, U nivers and regular 09-24 05-08 Subcutaneo i ty of human 70-30 12:30: 12:30 us, BID, [place] (HUMULIN 00 :54 First dose Medic al 70-30 U-[address] [facility] INSULIN) 09/24/20 at 100 unit/mL 0730, (70-30) Until injection 7 Discontinu Units ed, Routine glipiZIDE 2020- No 5mg 5 mg, Univer s (GLUCOTROL) 09-24-08 Oral, ity of tablet 5 mg 12:30: 08:26 BIDAC, [place] 00 :38 First dose Medical on [facility] 09/24/20 at 0730, Until Discontinu ed, Routine levothyroxi Yes 50ug 50 mcg, Uni vers ne 09-24 Oral, ity of (SYNTHROID) 11:00: QAM-0600, [place] tablet 50 00 First dose Medi uriel mcg on [facility] 09/24/20 at 0600, Until Discontinu ed, Routine furosemide Yes 40mg 40 mg, IV Un [place] (LASIX) 06 Push, Q8H, ity of injection 11:00: First dose [place] 40 mg 00 (after Medical last Branch reorder) on [facility] 09/24/20 at 0600, Until Discontinu ed, PIER[place] morpHINE 2020- No 2mg 2 mg, Slow [place] injection 2 09-24-06 IV Push, ity of mg 10:30: 09:22 ONCE, 1 [place] 00 :00 dose, [facility] 09/24/20 at Branch 0530, Routine morpHINE Yes 1mg 1 mg, Slow Uni vers injection 1 09-24 IV Push, ity of mg 10:17: Q4HPRN, [place] 07 Starting Medical [facility] 09/24/20 Branch at 0517, Until Discontinu ed, Routine, Pain (scale 7-10) traMADoL 2020- No 50mg 50 mg, Univer s (ULTRAM) 09-24 05-06 Oral, ity of tablet 50 06:15: 05:15 ONCE, 1 [place] mg 00 :00 dose, [facility] 09/24/20 at Branch 0115, Routine sennosides Yes 8.6mg 8.6 mg, Uni vers (SENOKOT) 09-24 Oral, BID, ity of tablet 8.6 01:45: First dose [place] mg 00 on [facility] 09/23/20 at Branch 204, Until Discontinu ed, Routine docusate Yes 100mg 100 mg, Unive rs (COLACE) 09-24 Oral, BID, ity o f capsule 100 01:45: First dose [place] mg 00 on [facility] 09/23/20 at Branch 204, Until Discontinu ed, Routine ondansetron Yes 4mg 4 mg, Slow Univers (ZOFRAN 09-24 IV Push, ity of (PF)) 01:35: Q6HPRN, [place] injection 4 33 Starting Medi uriel mg [facility] 09/23/20 Branch at 2034, Until Discontinu ed, [...] injection 10 Starting Medica l 25 mL [facility] 09/23/20 Branch at 2033, Until Discontinu ed, PIERRE, Blood Glucose < or = 70 mg/dL and patient is unable to swallow or has mental status changes. furosemide 40mg 40 mg, IV U nivers (LASIX) 09-24 Push, ity of injection 00:15: 23:20 ONCE, 1 [place] 40 mg 00 :00 dose, [facility] Medical 09/23/20 at Branch 1915, PIERRE FENTanyl PF 75ug 75 mcg, Un [place] (SUBLIMAZE 09-24 Slow IV ity o f (PF)) 00:00: 22:52 Push, [place] injection 00 :00 ONCE, 1 Medical 75 mcg dose, [facility] 09/23/20 at 1900, STAT iohexol [id number] 120mL 120 mL, U nivers (OMNIPAQUE 09-23 Intravenou it y of 350 22:00: 21:38 s, ONCE, 1 [place] BULK-100 00 :00 dose, [facility] Medica l mL) 09/23/20 at [place] injection 1700, 120 mL Routine polyethylen Yes 17g 17 g, Unive rs e glycol 4-20 Oral, ity of 3350 powder 14:00: DAILY, [place] 17 g 00 First dose Medical on [place] 09/08/20 at 0900, Until Discontinu ed, Routine simvastatin Yes 40mg Take 40 mg Univers 40 mg 4-20 by mouth ity of tablet 11:05: at [place] [id number] bedtime. Medical Branch omeprazole Yes 20mg Take 20 mg U nivers 20 mg 4-20 by mouth ity of capsule 11:05: daily. [address] Branch metformin Yes 750mg Take 750 Uni vers ER 750 mg 4-20 mg by ity of 24 hr 11:05: mouth [place] tablet daily with Medical breakfast. Branch gabapentin Yes 989 600mg Take 600 [place] 600 mg 4-20 mg by ity of tablet 11:05: mouth 3 [place] (three) Medical times [place] daily. Indication s: weakness, numbness or pain from nerve damage albuterol Yes 2{puff} Inhale 2 U nivers 90 4-20 Puffs 2 ity of mcg/actuati 11:05: (two) [place] on inhaler 01 times Medical daily. Branch simvastatin Yes 40mg Take 40 mg Univers 40 mg 4-20 by mouth ity of tablet 11:05: at [place] bedtime. Medical Branch omeprazole Yes 20mg Take 20 mg U nivers 20 mg 4-20 by mouth ity of capsule 11:05: daily. [place] Medical Branch metformin Yes 750mg Take 750 Uni vers ER 750 mg 4-20 mg by ity of 24 hr 11:05: mouth [place] tablet 01 daily with Medical breakfast. Branch gabapentin Yes 989 600mg Take 600 [place] 600 mg 4-20 mg by ity of tablet 11:05: mouth 3 [place] (three) Medical times [place] daily. Indication s: weakness, numbness or pain from nerve damage albuterol Yes 2{puff} Inhale 2 U nivers 90 4-20 Puffs 2 ity of mcg/actuati 11:05: (two) [place] on inhaler 01 times Medical daily. Branch levoFLOXaci Yes [id number] 500mg Take 1 Univers n 500 mg 4-19 tablet by ity of tablet 00:00: mouth [place] 00 every 24 Medical (twenty-fo Branch ur) hours. levoFLOXaci Yes [id number] 500mg Take 1 Univers n 500 mg 4-19 tablet by ity of tablet 00:00: mouth [place] 00 every 24 Medical (twenty-fo Branch ur) hours. levoFLOXaci 2020- No [id number] 500mg Take 1 Univers n 500 mg [...] mg 21:40: Q4HPRN, [place] 30 Starting Medical [facility] Branch 09/03/20 at 1640, Until Discontinu ed, Routine, Pain (scale 7-10) HYDROcodone 0 Yes 1{tbl} 1 tablet, Univers -acetaminop 4-15 Oral, ity of hen (NORCO) 21:40: Q4HPRN, [place] 10-325 mg 18 Starting Medica l tablet [address] [facility] tablet 09/03/20 at 1640, Until Discontinu ed, Routine, Pain (scale 4-6) acetaminoph Yes 650mg 650 mg, Un char[place] en 4-15 Oral, ity of (TYLENOL) 21:40: Q4HPRN, [place] tablet 650 00 Starting Medic al mg [facility] Branch 09/03/20 at 1640, Until Discontinu ed, Routine, Pain (scale 1-3) ceFEPIme 2020- No 2000mg 2,000 mg, U nivers (MAXIPIME) 4-15 04-18 IV ity of 2,000 mg in 19:15: 20:05 [place], [place] NaCl 0.9% 00 :31 Q8H ABX, [...] [place] 00 First dose Medical on [facility] 09/03/20 at 0900, Until Discontinu ed, Routine aspirin Yes 81mg 81 mg, Univers chewable 4-15 Oral, ity of tablet 81 14:00: DAILY, [place] mg 00 First dose Medical on [facility] 09/03/20 at 0900, Until Discontinu ed, Routine venlafaxine Yes 75mg 75 mg, Univ ers (EFFEXOR) 4-15 Oral, BID, ity of tablet 75 13:00: First dose [place] mg 00 on [facility] 09/03/20 at Branch 0800, Until Discontinu ed, Routine tamsulosin Yes .4mg 0.4 mg, Univ ers (FLOMAX) 4-15 Oral, BID, ity o f capsule 0.4 13:00: First dose [place] mg 00 on [facility] 09/03/20 at Branch 0800, Until Discontinu ed, Routine metFORMIN Yes 750mg 750 mg, Univ ers (GLUCOPHAGE 4-15 Oral, BID ity of ) tablet 13:00: MEALS, [place] 750 mg 00 First dose Medical on [facility] 09/03/20 at 0800, Until Discontinu ed gabapentin Yes 989 600mg 600 mg, Uni vers (NEURONTIN) 4-15 Oral, TID, it y of tablet 600 13:00: First dose [place] mg 00 on [facility] 09/03/20 at Branch 0800, Until Discontinu ed, Routine apixaban Yes 1358 5mg 5 mg, Univers (ELIQUIS) 4-15 Oral, BID, ity of tablet 5 mg 13:00: First dose [place] 00 on [facility] 09/03/20 at Branch 0800, Until Discontinu ed, Routine levothyroxi Yes 50ug 50 mcg, Uni vers ne 4-15 Oral, ity of (SYNTHROID) 11:00: QAM-0600, [place] tablet 50 00 First dose Medi uriel mcg on [facility] 09/03/20 at 0600, Until Discontinu ed, Routine ceFEPIme 2020- No 1000mg 1,000 mg, U nivers (MAXIPIME) 09-03 04-15 IV ity of 1,000 mg in 03:15: 16:39 [place], [place] NaCl 0.9% 00 :01 Q8H ABX, Medica l (NS) 50 mL First dose Bra [facility] MINI-BAG on 09/02/20 at 2215, Until Discontinu ed, 50 mL
R debbie for Anti-Infec tive: Empiric Therapy for Suspected Infection< br>Empiric Therapy Site: Other
O ther site: unknown
Duration of therapy: 7 days ondansetron Yes 4mg 4 mg, Slow Univers (ZOFRAN 4-15 IV Push, ity of (PF)) 02:10: Q6HPRN, [place] injection 4 13 Starting Medi uriel mg Wed Branch 09/02/20 at 2110, Until Discontinu ed, Routine, Nausea and Vomiting (N/V) cefTRIAXone 2020- No 1000mg 1,000 mg, Univers (ROCEPHIN) 09-03-15 IV ity of 1,000 mg in 01:45: 02:06 [place], [place] NaCl 0.9% 00 :26 ONCE, 1 Medical (NS) 50 mL dose, Mon [facility] MINI-BAG 09/02/20 at 2045, 50 mL
Reas on for Anti-Infec tive: Documented Infection< br>Documen ludmila Infection Site: Respirator y
Durat ion of Therapy: Other (see Comments) NaCl 0.9% Yes 1000mL at 150 Univ ers (NS) IV 4-15 mL/hr, IV ity of infusion 00:45: Infusion, [place] 1,000 mL 00 CONTINUOUS Medic al , Starting Branch 09/02/20 at 1945, Until Discontinu ed, PIERRE NaCl 0.9% 2020- No 1000mL at 999 Uni vers (NS) bolus 09-02 04-15 mL/hr, ity of infusion 23:30: 00:00 1,000 mL, [place] 1,000 mL 00 :00 IV Medical Infusion, Branch ONCE, 1 dose, 09/02/20 at 1830, PIERRE NaCl 0.9% 2020-0 2020- No 1000mL [...] 08 daily with Medical breakfast. Branch metformin 2021-0 Yes 750mg Take 750 Uni vers ER 750 mg 4-07 mg by ity of 24 hr 16:03: mouth [place] tablet 08 daily with Medical breakfast. Branch omeprazole Yes 20mg Take 20 mg U nivers 20 mg 4-07 by mouth ity of capsule 16:02: daily. [address] omeprazole Yes 20mg Take 20 mg U nivers 20 mg 4-07 by mouth ity of capsule 16:02: daily. [address] omeprazole 0 Yes 20mg Take 20 mg U nivers 20 mg 4-07 by mouth ity of capsule 16:02: daily. [address] omeprazole 0 Yes 20mg Take 20 mg U nivers 20 mg 4-07 by mouth ity of capsule 16:02: daily. [address] tamsulosin 2020- No [id number] .4mg Take 1 Univers 0.4 mg 24 08-26- capsule by ity of hr capsule 00:00: 04:59 mouth 2 Juan J as 00 :00 ([facility]) [facility] times [place] daily for 90 days. tamsulosin 2020- No [id number] .4mg Take 1 Univers 0.4 mg 24 08-26- capsule by ity of hr capsule 00:00: 04:59 mouth 2 Juan J as 00 :00 (two) [facility] times [place] daily for 90 days. tamsulosin 2020- No [id number] .4mg Take 1 Univers 0.4 mg 24 08-26- capsule by ity of hr capsule 00:00: 04:59 mouth 2 [place] J as 00 :00 (two) Medical times [place] daily for 90 days. tamsulosin 2020- No [id number] .4mg Take 1 Univers 0.4 mg 24 08-26-07 capsule by ity of hr capsule 00:00: 04:59 mouth 2 [place] J as 00 :00 (two) Medical times [place] daily for 90 days. tamsulosin 2020- No [id number] .4mg Take 1 Univers 0.4 mg 24 4 05-08 capsule by ity of hr capsule 00:00: 00:00 mouth 2 [place] J as 00 :00 (two) Medical times [place] daily for 90 days. cefdinir Yes Univers 300 mg 4-05 ity of capsule 00:00: [place] 00 Medical Branch cefdinir 0 Yes Univers 300 mg 4-05 ity of capsule 00:00: [place] 00 Medical Branch cefdinir 0 2020- No Univers 300 mg 4-05 -19 ity of capsule 00:00: 00:00 [place] 00 :00 Medical Branch lisinopriL 0 Yes Univers 2.5 mg 4-02 ity of tablet 00:00: [place] 00 Medical Branch lisinopriL 0 Yes Univers 2.5 mg 4-02 ity of tablet 00:00: [place] 00 Medical Branch lisinopriL 0 2020- No Univer s 2.5 mg 4-06 25- ity of tablet 00:00: 00:00 [place] 00 :00 Medical Branch simvastatin Yes 40mg Take 40 mg Univers 40 mg 3-18 by mouth ity of tablet 22:18: at [place] [address] bedtime. Medical Branch omeprazole Yes 20mg Take 20 mg U nivers 20 mg 3-18 by mouth ity of capsule 22:18: daily. [place] [address] Medical Branch metformin Yes 750mg Take 750 Uni vers ER 750 mg 3-18 mg by ity of 24 hr 22:18: mouth [place] tablet 47 daily with Medical breakfast. Branch gabapentin Yes 989 600mg Take 600 Un [place] 600 mg 3-18 mg by ity of tablet 22:18: mouth 3 [place] 47 (three) Medical times Branch daily. Indication s: weakness, numbness or pain from nerve damage simvastatin Yes 40mg Take 40 mg Univers 40 mg 3-18 by mouth ity of tablet 22:18: at [place] [address] bedtime. Medical Branch simvastatin Yes 40mg Take 40 mg Univers 40 mg 3-18 by mouth ity of tablet 22:18: at [place] [address] bedtime. Medical Branch simvastatin 0 Yes 40mg Take 40 mg Univers 40 mg 3-18 by mouth ity of tablet 22:18: at [place] [address] bedtime. Medical Branch simvastatin 0 Yes 40mg Take 40 mg Univers 40 mg 3-18 by mouth ity of tablet 22:18: at [place] [address] bedtime. Medical Branch HYDROcodone 2020- No 4647 1{tbl} Take 1 U nivers -acetaminop 08-06 tablet by it y of hen 5-325 00:00: 04:59 mouth [place] mg tablet 00 :00 every 6 Medical (six) Branch hours as needed for Pain (scale 4-6) for up to 7 days. Indication s: acute pain morphine IR 2020-0 2020- No 4647 15mg Take 1 Uni [...] mg 00 First dose Medical on [facility] 08/04/20 at 1700, Until Discontinu ed, Routine ondansetron Yes 4mg 4 mg, Unive rs (ZOFRAN) 3-16 Oral, ity of tablet 4 mg 15:56: Q6HPRN, Juan J as 52 Starting [facility] 08/04/20 at 1056, Until Discontinu ed, Routine, Nausea and Vomiting (N/V) morphine IR Yes 15mg 15 mg, Univ ers (MSIR) 3-16 Oral, ity of tablet 15 15:56: Q4HPRN, [place] mg 11 Starting Medical [facility] 08/04/20 at 1056, Until Discontinu ed, Routine, Pain (scale 7-10) furosemide 2020- No 40mg 40 mg, IV U nivers (LASIX) 08-0216 Push, ity of injection 02:00: 15:58 Q12H, [place] 40 mg 00 :17 First dose Medical (after Branch last modificati on) on [facility] 08/01/20 at 2000, Until Discontinu ed, Routine morpHINE 2020- No 4mg 4 mg, Univers injection 4 08-0116 Intravenou i ty of mg 15:15: 15:58 s, Q4HPRN, [place] 00 :17 Starting Medical [facility] 08/01/20 at 0915, Until [facility] 08/04/20 at 1058, Routine, Pain (scale [...] Branch 0800, Until Discontinu ed, Routine morpHINE 2020- No 4mg 4 mg, Univers injection 4 07-31 Intravenou i ty of mg 07:08: 15:02 s, Q6HPRN, [place] 20 :50 Starting Medical [facility] 07/31/20 at 0108, Until [facility] 08/01/20 at 0902, Routine, Pain (scale 7-10) heparin Yes 1000U/h 1,000 Univer s 25,000 3-12 Units/hr ity of Units/250 07:04: (10 [place] mL 23 mL/hr), IV Medical (Premixed Infusion, [...] e, Dosing and Testing: &nbs p;FOR [facility] AND [facility] ONLY - aPTT < [...] :00 ONCE, 1 Medical UNIT/ML dose, Mon Branch BOLUS ACS 07/31/20 at ORDER SET 0030, [...] First dose [place] mg 00 on [facility] 07/28/20 at Branch 2100, Until Discontinu ed, Routine apixaban 2020- No 1358 5mg 5 mg, Univers (ELIQUIS) 07-29 03-12 Oral, BID, ity of tablet 5 mg 00:45: 06:27 First dose [place] 00 :09 (after Medical last Branch modificati on) on [facility] 07/28/20 at 1845, Until Discontinu ed, Routine tamsulosin Yes .4mg 0.4 mg, Univ ers (FLOMAX) 07-28 Oral, ity of capsule 0.4 15:00: DAILY, [place] mg 00 First dose Medical on [facility] 07/28/20 at 0900, Until Discontinu ed, Routine omeprazole Yes 20mg 20 mg, Unive rs (PRILOSEC) 07-28 Oral, ity of capsule 20 15:00: DAILY, [place] mg 00 First dose Medical on [facility] 07/28/20 at 0900, Until Discontinu ed, Routine venlafaxine Yes 75mg 75 mg, Univ ers (EFFEXOR) 07-28 Oral, BID, ity of tablet 75 14:00: First dose [place] mg 00 on [facility] 07/28/20 at Branch 0800, Until Discontinu ed, Routine gabapentin Yes 989 600mg 600 mg, Uni vers (NEURONTIN) 07-28 Oral, TID, it y of tablet 600 14:00: First dose [place] mg 00 on [facility] 07/28/20 at Branch 0800, Until Discontinu ed, Routine enoxaparin 2020- No 1mg/kg 100 mg Un [place] (LOVENOX) 07-2810 (rounded ity o f injection 14:00: 00:35 from 95.3 [place] 100 mg 00 :14 mg = 1 Medical mg/kg Branch ?95.3 kg), [facility], Q[facility], First dose on [facility] 07/28/20 at 0800, Until Discontinu ed, Routine glipiZIDE 2020- No 5mg 5 mg, Univer s (GLUCOTROL) 3-09 03-14 Oral, ity of tablet 5 mg 13:30: 13:59 BIDAC, Juan J as 00 :37 First dose Medical on Mon07/28/20 at 0730, Until Discontinu ed, Routine levothyroxi Yes 50ug 50 mcg, Uni vers ne 309 Oral, ity of (SYNTHROID) 12:00: QAM-0600, [place] tablet 50 00 First dose Medi uriel mcg on Mon07/28/20 at 0600, Until Discontinu ed, Routine ondansetron 2020- No 4mg 4 mg, Slow Univers (ZOFRAN 07-28 03-16 IV Push, ity of (PF)) 05:05: 15:58 Q6HPRN, [place] injection 4 10 :17 Starting Medi uriel mg 07/27/20 Branch at 2305, Until Mon08/04/20 at 1058, Routine, Nausea and Vomiting (N/V) HYDROcodone Yes 1{tbl} 1 tablet, Univers -acetaminop 07-28 Oral, ity of hen (NORCO 05:05: Q6HPRN, [place] 5) 5-325 mg 05 Starting Medi uriel tablet 1 Mon 07/27/20 Branc h tablet at 2305, Until Discontinu ed, Routine, Pain (scale 4-6) acetaminoph Yes 650mg 650 mg, Un charley en 07-28 Oral, ity of (TYLENOL) 05:05: Q6HPRN, [place] tablet 650 03 Starting Medic al mg Mon07/27/20 Branch at 2305, Until Discontinu ed, Routine, Pain (scale 1-3) nitroglycer Yes .4mg 0.4 mg, Uni vers in 09 Sublingual ity of (NITROSTAT) 04:19: , Q5MIN Juan J as sublingual 48 PRN, Medical tablet 0.4 Starting Branc h mg 07/27/20 at 2219, Until Discontinu ed, Routine, Chest pain Sliding Yes Subcutaneo Univ ers Scale 3-09 us, AC+HS, ity of Insulin-Reg 03:00: First dose [place] ular + Fsbg 00 on Mon Medica l Testing 07/27/20 at Branch 2100, Until Discontinu ed, Routine furosemide 2020- No 20mg 20 mg, IV U nivers (LASIX) 07-2710 Push, Q8H, ity o f injection 22:00: 00:32 First dose [place] 20 mg 00 :14 on [facility] 07/27/20 at Branch 1600, Until Discontinu ed, Routine morpHINE 2020- No 2mg 2 mg, Univers injection 2 07-27-12 Intravenou i ty of mg 21:46: 07:08 s, Q6HPRN, [place] 47 :42 Starting Medical [facility] 07/27/20 Branch at 1546, Until 07/31/20 at 0108, Routine, Pain (scale 7-10) ondansetron 2020- No 4mg 4 mg, Slow Univers (ZOFRAN 07-2709 IV Push, ity of (PF)) 21:44: 05:05 Q6HPRN, [place] injection 4 34 :39 Starting Medi uriel mg [facility] 07/27/20 Branch at 1544, Until Mon07/27/20 at 2305, Routine, Nausea and Vomiting (N/V) sennosides Yes 8.6mg 8.6 mg, Uni vers (SENOKOT) 3-08 Oral, ity of tablet 8.6 21:40: BIDPRN, [place] mg 13 Starting [facility] 07/27/20 Branch at 1540, Until Discontinu ed, Routine, Constipati on morpHINE 2020- No 4mg 4 mg, Slow Un [place] injection 4 07-27-08 IV Push, ity of mg 19:30: 18:27 ONCE, 1 [place] 00 :00 dose, [facility] 07/27/20 at Branch 1330, Routine simvastatin Yes 40mg Take 40 mg Univers 40 mg 3-02 by mouth ity of tablet 04:47: at [place] [address] bedtime. Medical Branch omeprazole Yes 20mg Take 20 mg U nivers 20 mg 3-02 by mouth ity of capsule 04:47: daily. [place] [address] Medical Branch metformin Yes 750mg Take 750 Uni vers ER 750 mg 3-02 mg by ity of 24 hr 04:47: mouth [place] tablet 07 daily with Medical breakfast. Branch gabapentin Yes 989 600mg Take 600 Un [place] 600 mg 3-02 mg by ity of tablet 04:47: mouth 3 [place] (three) Medical times [place] daily. Indication s: weakness, numbness or pain from nerve damage simvastatin Yes 40mg Take 40 mg Univers 40 mg 02 by mouth ity of tablet 04:47: at [place] [address] bedtime. Medical Branch omeprazole Yes 20mg Take 20 mg U nivers 20 mg 02 by mouth ity of capsule 04:47: daily. [place] [address] Medical Branch metformin Yes 750mg Take 750 Uni vers ER 750 mg 3-02 mg by ity of 24 hr 04:47: mouth [place] tablet 07 daily with Medical breakfast. Branch gabapentin Yes 989 600mg Take 600 Un [place] 600 mg 3-02 mg by ity of tablet 04:47: mouth 3 [place] (three) Medical times [place] daily. Indication s: weakness, numbness or pain from nerve damage iron 2020- No 1000mg 1,000 mg, Unive rs dextran 07-20 IV ity of (INFED) 20:15: 22:21 Infusion, [place] 1,000 mg in 00 :00 ONCE, 1 Medic al NaCl 0.9% dose, [facility] (NS) 500 mL 07/20/20 at IV [...] 07-20 Oral, ity of sodium 15:00: DAILY, [place] (SENOKOT-S) 00 First dose Me dical 8.6-50 mg on Mon Branch per tablet 07/20/20 at 1 tablet 0900, Until Discontinu ed, Routine Polyethylen Yes 17g 17 g, Unive rs e Glycol 3-01 Oral, BID, ity o f 3350 02:00: First dose [place] (MIRALAX) 00 (after Medical powder 17 g last Branch modificati on) on 07/19/20 at 2000, Until Discontinu ed, Routine apixaban 5 Yes 1358 5mg Take 1 Unive rs mg tablet 3-01 tablet by ity o f 00:00: mouth 2 [place] 00 (two) Medical times Branch daily. Indication s: atrial fibrillati on povidone-io Yes [id number] Apply to [facility] 07-20 [facility] area(s) as ity of (BETADINE) 00:00: needed [place] 10 % 00 (wound Medical solution care). Branch apixaban 5 Yes 1358 5mg Take 1 Unive rs mg tablet 3-01 tablet by ity o f 00:00: mouth 2 [place] 00 (two) Medical times Branch daily. Indication s: atrial fibrillati on povidone-io Yes [id number] Apply to [facility] 07-20 91 area(s) as ity of (BETADINE) 00:00: needed [place] 10 % 00 (wound Medical solution care). Branch apixaban 5 Yes 1358 5mg Take 1 Unive rs mg tablet 3-01 tablet by ity o f 00:00: mouth 2 [place] 00 (two) Medical times Branch daily. Indication s: atrial fibrillati on povidone-io Yes [id number] Apply to [facility] 07-20 9109 area(s) as ity of (BETADINE) 00:00: needed [place] 10 % 00 (wound Medical solution care). Branch apixaban 5 Yes 1358 5mg Take 1 Unive rs mg tablet 3-01 tablet by ity o f 00:00: mouth 2 [place] 00 (two) Medical times Branch daily. Indication s: atrial fibrillati on povidone-io Yes [id number] Apply to [facility] 07-20 9109 area(s) as ity of (BETADINE) 00:00: needed [place] 10 % 00 (wound Medical solution care). Branch apixaban 5 0 Yes 1358 5mg Take 1 Unive rs mg tablet 3-01 tablet by ity o f 00:00: mouth 2 [place] 00 (two) Medical times Branch daily. Indication s: atrial fibrillati on povidone-io 2020-0 Yes [id number] Apply to [facility] [address] [address] area(s) as ity of (BETADINE) 00:00: needed [place] 10 % 00 (wound Medical solution care). Branch apixaban 5 0 Yes 1358 5mg Take 1 Unive rs mg tablet 3-01 tablet by ity o f 00:00: mouth 2 [place] 00 (two) Medical times Branch daily. Indication s: atrial fibrillati on povidone-io 2020-0 Yes [id number] Apply to [place] [address] area(s) as ity of (BETADINE) 00:00: needed [place] 10 % 00 (wound Medical solution care). Branch apixaban 5 0 Yes 1358 5mg Take 1 Unive rs mg tablet 3-01 tablet by ity o f 00:00: mouth 2 [place] 00 (two) Medical times Branch daily. Indication s: atrial fibrillati on povidone-io 2020-0 Yes [id number] Apply to [place] [address] area(s) as ity of (BETADINE) 00:00: needed [place] 10 % 00 (wound Medical solution care). Branch apixaban 5 0 Yes 1358 5mg Take 1 Unive rs mg tablet 3-01 tablet by ity o f 00:00: mouth 2 [place] 00 (two) Medical times Branch daily. Indication s: atrial fibrillati on povidone-io 2020-0 Yes [id number] Apply to [facility] [address] [address] area(s) as ity of (BETADINE) 00:00: needed [place] 10 % 00 (wound Medical solution care). Branch apixaban 5 2020-0 Yes 1358 5mg Take 1 Unive rs mg tablet 3-01 tablet by ity o f 00:00: mouth 2 [place] 00 (two) Medical times Branch daily. Indication s: atrial fibrillati on povidone-io Yes [id number] Apply to [place] [address] area(s) as ity of (BETADINE) 00:00: needed [place] 10 % 00 (wound Medical solution care). Branch povidone-io Yes [id number] Apply to [place] [address] area(s) as ity of (BETADINE) 00:00: needed [place] 10 % 00 (wound Medical solution care). Branch povidone-io Yes [id number] Apply to [place] [address] area(s) as ity of (BETADINE) 00:00: needed [place] 10 % 00 (wound Medical solution care). Branch povidone-io Yes [id number] Apply to [place] [address] area(s) as ity of (BETADINE) 00:00: needed [place] 10 % 00 (wound Medical solution care). Branch povidone-io Yes [id number] Apply to [place] [address] area(s) as ity of (BETADINE) 00:00: needed [place] 10 % 00 (wound Medical solution care). Branch povidone-io Yes [id number] Apply to [place] [address] area(s) as ity of (BETADINE) 00:00: needed [place] 10 % 00 (wound Medical solution care). Branch povidone-io Yes [id number] Apply to [place] [address] area(s) as ity of (BETADINE) 00:00: needed [place] 10 % 00 (wound Medical solution care). Branch povidone-io Yes [id number] Apply to [place] [address] area(s) as ity of (BETADINE) 00:00: needed [place] 10 % 00 (wound Medical solution care). Branch povidone-io Yes [id number] Apply to [place] [address] area(s) as ity of (BETADINE) 00:00: needed [place] 10 % 00 (wound Medical solution care). Branch povidone-io Yes [id number] Apply to Univers dine 3-01 9109 area(s) as ity of (BETADINE) 00:00: needed [place] 10 % 00 (wound Medical solution care). Branch povidone-io Yes [id number] Apply to [facility] 07-20 9109 area(s) as ity of (BETADINE) 00:00: needed [place] 10 % 00 (wound Medical solution care). Branch povidone-io Yes [id number] Apply to [facility] 07-20 9109 area(s) as ity of (BETADINE) 00:00: needed [place] 10 % 00 (wound Medical solution care). Branch povidone-io 2020- No [id number] Apply to [facility] 07-20 9109 area(s) as ity of (BETADINE) [...] 4647 1{tbl} Take 1 U nivers -acetaminop -18 tablet by it y of hen 10-325 [...] 7 days. Indication s: acute pain magnesium No 296mL 296 mL, Uni vers citrate 07-19 Oral, ity of solution 16:30: 17:50 ONCE, 1 [place] 296 mL 00 :00 dose, [place] Medical 07/19/20 at Branch 1030, Routine iohexol No 120mL 120 mL, Unive rs (OMNIPAQUE 07-18 Intravenou it y of 350 21:15: 21:15 s, ONCE, 1 [place] BULK-150 00 :00 dose, Sat Medica l mL) 07/18/20 at [place] injection 1515, 120 mL Routine Polyethylen No 17g 17 g, Univ ers e Glycol 07-18 Oral, ity of 3350 15:00: 15:11 DAILY, [place] (MIRALAX) 00 :14 First dose Medi uriel powder [address] [facility] Branch 07/18/20 at 0900, Until Discontinu ed, Routine HYDROcodone Yes 1{tbl} 1 tablet, Univers -acetaminop 2-25 Oral, Q6H, it y of hen (NORCO) 00:00: First dose [place] 10-325 mg 00 on Mon Medical tablet 1 07/15/20 at [facility] h tablet 1800, Until Discontinu ed, Routine doxycycline No 100mg 100 mg, U nivers hyclate 07-16 Oral, ity of (Vibramycin 00:00: 13:05 Q12HA2, [place] ) capsule 00 :18 First dose Medi uriel 100 mg on [facility] Branch 07/15/20 at 1800, Until Discontinu ed, [...] 16:58 Q4HPRN, [place] 50 :50 Starting Medical [facility] 07/13/20 at 1059, Until 07/15/20 at 1058, Routine, Pain (scale 7-10) furosemide 2020- No 40mg 40 mg, Univ ers (LASIX) 07-12 Oral, ity of tablet 40 15:00: 14:27 DAILY, [place] mg 00 :37 First dose Medical (after Branch last modificati on) on [place] 07/12/20 at 0900, Until Discontinu ed, Routine morpHINE 2020- No 4mg 4 mg, Slow Un char[place] injection 4 07-12 IV Push, ity of mg 09:35: 09:34 Q4HPRN, [place] 59 :59 Starting Medical [facility] 07/12/20 at 0335, Until [facility] 07/13/20 at 0334, Routine, Pain (scale 7-10) simvastatin Yes 40mg 40 mg, Univ ers (ZOCOR) 2-21 Oral, QHS, ity of tablet 40 03:00: First dose [place] mg [address] [facility] Medical 07/11/20 at Branch 2100, Until Discontinu ed, Routine tamsulosin 0 Yes .4mg 0.4 mg, Univ ers (FLOMAX) 2-20 Oral, ity of capsule 0.4 15:00: DAILY, [place] mg 00 First dose Medical on [facility] Branch 07/11/20 at 0900, Until Discontinu ed, Routine omeprazole 0 Yes 20mg 20 mg, Unive rs (PRILOSEC) 2-20 Oral, ity of capsule 20 15:00: DAILY, [place] mg 00 First dose Medical on [facility] Branch 07/11/20 at 0900, Until Discontinu ed, Routine aspirin 0 Yes 81mg 81 mg, Univers chewable 2-20 Oral, ity of tablet 81 15:00: DAILY, [place] mg 00 First dose Medical on [facility] Branch 07/11/20 at 0900, Until Discontinu ed, Routine furosemide 0 2020- No 40mg 40 mg, Univ ers (LASIX) 2-20 02-20 Oral, ity of tablet 40 15:00: 23:13 QAM+PM, [place] mg 00 :00 First dose Medical on [facility] Branch 07/11/20 at 0900, Until Discontinu ed, Routine enoxaparin 0 Yes 1mg/kg 70 mg Univ ers (LOVENOX) 2-20 (rounded ity of injection 14:00: from 74.8 Juan J as 70 mg 00 mg = 1 Medical mg/kg Branch ?74.8 kg), Subcutaneo us, Q12H, First dose (after last modificati on) on [facility] 07/11/20 at 0800, Until Discontinu ed, Routine venlafaxine 0 Yes 75mg 75 mg, Univ ers (EFFEXOR) 2-20 Oral, BID, ity of tablet 75 14:00: First dose [place] mg 00 on [facility] 07/11/20 at Branch 0800, Until Discontinu ed, Routine Sliding 2020-0 Yes Subcutaneo Univ ers Scale 2-20 us, AC, ity of Insulin-Reg 13:30: First dose [place] ular + Fsbg [address] [facility] Medica l Testing 07/11/20 at [...] 1,000 mg in 08:00: 18:03 from 1,122 [place] NaCl 0.9% 00 :37 mg = 15 [...] ity of (PF)) 07:45: 06:36 ONCE, 1 [place] injection 4 00 :00 dose, Sat Med ical mg 07/11/20 at Branch 0145, Routine morpHINE 2020-0 2020- No 4mg 4 mg, Slow Un char[place] injection 4 20 02-20 IV Push, ity of mg 07:30: 06:36 ONCE, 1 [place] 00 :00 dose, Sat Medical 07/11/20 at Branch 0130, PIERRE glucagon 0 Yes 1mg 1 mg, Univers (GLUCAGEN 2-20 Intramuscu ity of DIAGNOSTIC 07:20: lar, PRN, [place] KIT) 16 Starting Medical injection 1 [facility] 07/11/20 at 0120, Until Discontinu ed, PIERRE, Blood Glucose < or = 70 mg/dL and patient is unable to swallow or has mental changes. dextrose 50 2020-0 Yes 25mL 25 mL, Univ ers % in water 2-20 Slow IV ity of (D50W) 07:20: Push, PRN, [place] injection 16 Starting Medica l 25 mL [facility] 07/11/20 at 0120, Until Discontinu ed, PIERRE, Blood Glucose < or = 70 mg/dL and patient is unable to swallow or has mental status changes. ondansetron 2020-0 Yes 4mg 4 mg, Slow Univers (ZOFRAN 2-20 IV Push, ity of (PF)) 07:19: Q6HPRN, [place] injection 4 59 Starting Medi uriel mg Sat Branch 07/11/20 at 0119, Until Discontinu ed, Routine, Nausea and Vomiting (N/V) morpHINE 2020-0 2021- No 4mg 4 mg, Slow Un [place] injection 4 07-11 IV Push, ity of mg 07:19: 07:18 Q4HPRN, [place] 50 :50 Starting Medical [facility] 07/11/20 at 0119, Until 07/12/20 at 0118, Routine, Pain (scale 7-10) acetaminoph Yes 650mg 650 mg, Un charley en 2-20 Oral, ity of (TYLENOL) 07:19: Q6HPRN, [place] tablet 650 39 Starting Medic al mg [facility] 07/11/20 at 0119, Until Discontinu ed, Routine, Pain (scale 1-3) FENTanyl PF 2020- No 50ug 50 mcg, Un charley (SUBLIMAZE 07-11- Slow IV ity o f (PF)) 06:00: 04:58 Push, [place] injection 00 :00 ONCE, 1 Medical 50 mcg dose, [facility] 07/11/20 at 0000, Routine FENTanyl PF 2020-2020- No 50ug 50 mcg, Un charley (SUBLIMAZE 07-11- Slow IV ity o f (PF)) 03:00: 01:54 Push, [place] injection 00 :00 ONCE, 1 Medical 50 mcg dose, [facility] [place] [facility] Branch 07/10/20 at 2100, Routine collagenase 2020-0 Yes [id number] Use as Univers 250 2-03 directed ity of unit/gram 00:00: by office Juan J as ointment 00 Medical Branch collagenase 2020-0 Yes [id number] Use as Univers 250 2-03 directed ity of unit/gram 00:00: by office [place] ointment 00 Medical Branch collagenase 2020-0 Yes [id number] Use as Univers 250 2-03 directed ity of unit/gram 00:00: by office [place] ointment 00 Medical Branch collagenase 2020-0 Yes [id number] Use as Univers 250 2-03 directed ity of unit/gram 00:00: by office [place] ointment 00 Medical Branch collagenase 2020-0 Yes [id number] Use as Univers 250 2-03 directed ity of unit/gram 00:00: by office [place] ointment 00 Medical Branch collagenase 2020-0 Yes [id number] Use as Univers 250 2-03 directed ity of unit/gram 00:00: by office [place] ointment 00 Medical Branch collagenase 202-0 Yes [id number] Use as Univers 250 2-03 directed ity of unit/gram 00:00: by office [place] ointment 00 Medical Branch collagenase 202-0 Yes [id number] Use as Univers 250 2-03 directed ity of unit/gram 00:00: by office [place] as ointment Medical Branch collagenase 202-0 Yes [id number] Use as Univers 250 2-03 directed ity of unit/gram 00:00: by office [place] ointment 00 Medical Branch collagenase 202-0 Yes [id number] Use as Univers 250 2-03 directed ity of unit/gram 00:00: by office [place] ointment Medical Branch collagenase 2020-0 Yes [id number] Use as Univers 250 2-03 directed ity of unit/gram 00:00: by office [place] ointment 00 Medical Branch collagenase 2020-0 Yes [id number] Use as Univers 250 2-03 directed ity of unit/gram 00:00: by office [place] ointment 00 Medical Branch collagenase 2020-0 Yes [id number] Use as Univers 250 2-03 directed ity of unit/gram 00:00: by office [place] ointment 00 Medical Branch collagenase 2020-0 Yes [id number] Use as Univers 250 2-03 directed ity of unit/gram 00:00: by office [place] ointment 00 Medical Branch collagenase 202-0 Yes [id number] Use as Univers 250 2-03 directed ity of unit/gram 00:00: by office [place] J [place] ointment 00 Medical Branch collagenase 202-0 Yes [id number] Use as Univers 250 2-03 directed ity of unit/gram 00:00: by office [place] ointment 00 Medical Branch collagenase 202-0 Yes [id number] Use as Univers 250 2-03 directed ity of unit/gram 00:00: by office [place] ointment 00 Medical Branch collagenase 202-0 Yes [id number] Use as Univers 250 2-03 directed ity of unit/gram 00:00: by office [place] ointment 00 Medical Branch collagenase 202-0 Yes [id number] Use as [facility] 250 2-03 directed ity of unit/gram 00:00: by office [facility] ointment 00 Medical Branch collagenase 0 Yes [id number] Use as [facility] 250 2-03 directed ity of unit/gram 00:00: by office [facility] ointment Medical Branch collagenase 2020-0 Yes [id number] Use as [facility] 250 2-03 directed ity of unit/gram 00:00: by office [place] [facility] [place] ointment [facility] Branch collagenase 0 Yes [id number] Use as [facility] 250 2-03 directed ity of unit/gram 00:00: by office [place] ointment [facility] Branch collagenase 0 Yes [id number] Use as [facility] 250 2-03 directed ity of unit/gram 00:00: by office [place] ointment [facility] Branch collagenase 0 Yes [id number] Use as [facility] 250 2-03 directed ity of unit/gram 00:00: by office [place] ointment [facility] Branch collagenase 0 Yes [id number] Use as [facility] 250 2-03 directed ity of unit/gram 00:00: by office [place] ointment [facility] Branch collagenase 0 Yes [id number] Use as [facility] 250 2-03 directed ity of unit/gram 00:00: by office [place] ointment [facility] Branch collagenase 0 Yes [id number] Use as [facility] 250 1-21 directed ity of unit/gram 00:00: by office [place] ointment Medical Branch collagenase 0 Yes [id number] Use as [facility] 250 1-21 directed ity of unit/gram 00:00: by office [place] ointment Medical Branch collagenase 2020-0 2020- No [id number] Use as [facility] 250 1-21 02-03 directed ity of unit/gram 00:00: 00:00 by office [place] ointment 00 :00 Medical Branch warfarin 0 Yes 5mg 5 mg, Univers (COUMADIN) 1-12 [...] by mouth ity of tablet 22:03: at [place] [address] bedtime. Medical Branch warfarin 5 2020-0 Yes 5mg Take 5 mg [place] mg tablet 1-12 by mouth ity of 22:03: every [place] 25 evening. Medical Branch omeprazole 2020-0 Yes 20mg Take 20 mg U nivers 20 mg 1-12 by mouth ity of capsule 22:03: daily. [place] [address] Medical Branch metformin 2020-0 Yes 750mg Take 750 Uni vers ER 750 mg 1-12 mg by ity of 24 hr 22:03: mouth [place] tablet 25 daily with Medical breakfast. Branch simvastatin 2020-0 Yes 40mg Take 40 mg [facility] 40 mg 1-12 by mouth ity of tablet 22:03: at [place] [address] bedtime. Medical Branch warfarin 5 0 Yes 5mg Take 5 mg [place] mg tablet 1-12 by mouth ity of 22:03: every [place] 25 evening. Medical Branch omeprazole 2020-0 Yes 20mg Take 20 mg U nivers 20 mg 1-12 by mouth ity of capsule 22:03: daily. [place] [address] Medical Branch metformin 2020-0 Yes 750mg Take 750 Uni vers ER 750 mg 1-12 mg by ity of 24 hr 22:03: mouth [place] tablet 25 daily with Medical breakfast. Branch simvastatin 2020-0 Yes 40mg Take 40 mg [facility] 40 mg 1-12 by mouth ity of tablet 22:03: at [place] [address] bedtime. Medical Branch warfarin 5 2020-0 Yes 5mg Take 5 mg [place] mg tablet 1-12 by mouth ity of 22:03: every [place] 25 evening. Medical Branch omeprazole 2020-0 Yes 20mg Take 20 mg U nivers 20 mg 1-12 by mouth ity of capsule 22:03: daily. [place] [address] Medical Branch metformin 2020-0 Yes 750mg Take 750 Uni vers ER 750 mg 1-12 mg by ity of 24 hr 22:03: mouth [place] tablet 25 daily with Medical breakfast. Branch simvastatin 2020-0 Yes 40mg Take 40 mg [facility] 40 mg 1-12 by mouth ity of tablet 22:03: at [place] 25 bedtime. Medical Branch warfarin 5 2020-0 Yes 5mg Take 5 mg [place] mg tablet 1-12 by mouth ity of 22:03: every [place] 25 evening. Medical Branch omeprazole 0 Yes 20mg Take 20 mg U nivers 20 mg -12 by mouth ity of capsule 22:03: daily. [place] [address] Medical Branch metformin 0 Yes 750mg Take 750 Uni vers ER 750 mg 1-12 mg by ity of 24 hr 22:03: mouth [place] tablet 25 daily with Medical breakfast. Branch simvastatin Yes 40mg Take 40 mg [facility] 40 mg -12 by mouth ity of tablet 22:03: at [place] [address] bedtime. Medical Branch warfarin 5 0 Yes 5mg Take 5 mg [place] mg tablet 12 by mouth ity of 22:03: every [place] [address] evening. Medical Branch omeprazole Yes 20mg Take 20 mg U nivers 20 mg -12 by mouth ity of capsule 22:03: daily. [place] [address] Medical Branch metformin Yes 750mg Take 750 Uni vers ER 750 mg 1-12 mg by ity of 24 hr 22:03: mouth [place] tablet 25 daily with Medical breakfast. Branch gabapentin 2020-2020- No 300mg Take 300 U nivers 300 mg 06-02 mg by ity of capsule 20:27: 00:00 mouth 3 [place] 51 :00 (three) Medical times Branch daily. doxazosin 8 2020-2020- No 8mg Take 8 mg Univers mg tablet 06-02 by mouth ity o f 20:27: 00:00 daily. [place] 51 :00 Medical Branch amLODIPine 2020-2020- No 5mg Take 5 mg U nivers 5 mg tablet 06-02 by mouth ity of 20:27: 00:00 daily. [place] 51 :00 Medical Branch gabapentin Yes 600mg 600 mg, Uni vers (NEURONTIN) 12 Oral, TID, it y of capsule 600 20:00: First dose [place] 00 (after Medical last Branch modificati on) on Mon06/02/20 at 1400, Until Discontinu ed, Routine morpHINE Yes 2mg 2 mg, Slow Uni vers injection 2 12 IV Push, ity of mg 18:00: Q6HPRN, [place] 00 Starting Medical [facility] Branch 06/02/20 at 1200, Until Discontinu ed, Routine, Pain (scale 7-10) acetaminoph Yes 1{tbl} 1 tablet, [facility] en-codeine -12 Oral, ity of (TYLENOL 17:52: Q4HPRN, [place] #3) 300-30 44 Starting Medic al mg tablet 1 [facility] tablet 06/02/20 at 1152, Until Discontinu ed, Routine, Pain (scale 4-6) warfarin 2020- No 10mg 10 mg, Univer s (COUMADIN) 06-02 Oral, ONCE it y of tablet 10 16:30: 17:55 NOW, 1 [place] mg 00 :00 dose, [facility] Medical 06/02/20 at Branch 1030, Routine
INR Goal Range: 2-3
IND ICATION (More than one indication for warfarin can be selected): DVT and/or PE ciprofloxac Yes 500mg 500 mg, [place] in HCl 12 Oral, ity of (CIPRO) 12:00: Q12HA2, [place] tablet 500 00 First dose Med ical mg on [facility] Branch 06/02/20 at 0600, Until Discontinu ed, PIERRE
Re ason for Anti-Infec tive: Empiric Therapy for Suspected Infection< br>Empiric Therapy Site: Bone<br&gt ;Duration of therapy: 72 hours doxycycline Yes 100mg 100 mg, [place] hyclate 06-02 Oral, ity of (Vibramycin 02:00: Q12H, [place] ) capsule 00 First dose Medi uriel 100 mg on [facility] Branch 06/01/20 at 2000, Until Discontinu ed, PIERRE
Re ason for Anti-Infec tive: Empiric Therapy for Suspected Infection< br>Empiric Therapy Site: Bone
Du ration of therapy: 72 hours lactobacill Yes 1{tbl} 1 tablet, Univers us 12 Oral, TID, ity of acidophilus 00:15: First dose [place] (ACIDOPHILL 00 on [facility] Medica l US) 25 06/01/20 at Branch million 1815, cell -100 Until mg captab 1 Discontinu tablet ed, Routine warfarin 2020- No 10mg 10 mg, Univer s (COUMADIN) 06-02 Oral, ONCE it y of tablet 10 00:15: 23:24 NOW, 1 [place] mg 00 :00 dose, [facility] 06/01/20 at Branch 1815, Routine
INR Goal Range: 2-3
IND ICATION (More than one indication for warfarin can be selected): DVT and/or PE gabapentin 2020- No [id number] 600mg Take 2 [facility] 300 mg 06-02 capsules ity of capsule 00:00: 05:59 by mouth 3 [place] 00 :00 (three) Medical times Branch daily for 30 days. gabapentin 2020- No [id number] 600mg Take 2 [facility] 300 mg 06-02 capsules ity of capsule 00:00: 05:59 by mouth 3 [place] 00 :00 (three) Medical times Branch daily for 30 days. gabapentin 2020- No [id number] 600mg Take 2 [facility] 300 mg 06-02 capsules ity of capsule 00:00: 05:59 by mouth 3 [place] 00 :00 (three) Medical times Branch daily for 30 days. gabapentin 2020- No [id number] 600mg Take 2 [facility] 300 mg 06-02 capsules ity of capsule 00:00: 05:59 by mouth 3 [place] 00 :00 (three) Medical times Branch daily for 30 days. gabapentin 2020- No [id number] 600mg Take 2 [facility] 300 mg 06-02 capsules ity of capsule 00:00: 05:59 by mouth 3 [place] 00 :00 (three) Medical times Branch daily for 30 days. insulin NPH 2020- No [id number] 16U inject 16 [facility] 100 unit/mL 06-02 Units ity of injection 00:00: 05:59 under the [place] 00 :00 skin every Medical morning Branch and at bedtime for 16 days. insulin NPH 2020- No [id number] 16U inject 16 [facility] 100 unit/mL 06-02 Units ity of injection 00:00: 05:59 under the [place] 00 :00 skin every Medical morning Branch and at bedtime for 16 days. insulin NPH 2020- No [id number] 16U inject 16 [facility] 100 unit/mL 06-02 Units ity of injection 00:00: 05:59 under the [place] 00 :00 skin every Medical morning Branch and at bedtime for 16 days. insulin NPH 2020- No [id number] 16U inject 16 [facility] 100 unit/mL 06-02 Units ity of injection 00:00: 05:59 under the [place] 00 :00 skin every Medical morning Branch and at bedtime for 16 days. ciprofloxac 2020- No [id number] 500mg Take 1 [facility] in HCl 500 06-02 tablet by ity of mg tablet 00:00: 05:59 mouth [place] 00 :00 every 12 Medical (twelve) Branch hours for 10 days. doxycycline 2020- No [id number] 100mg Take 1 [facility] hyclate 100 06-02 capsule by i ty of mg capsule 00:00: 05:59 mouth [place] 00 :00 every 12 Medical (twelve) Branch hours for 10 days. lactobacill 2020- No [id number] 1{tbl} Take 1 [facility] us 06-02 tablet by ity of acidophilus 00:00: 05:59 mouth 2 [place] 25 million 00 :00 (two) Medical cell -100 times Branch mg captab daily for 10 days. ciprofloxac 2020- No [id number] 500mg Take 1 [facility] in HCl 500 06-02 tablet by ity of mg tablet 00:00: 05:59 mouth [place] 00 :00 every 12 Medical (twelve) Branch hours for 10 days. doxycycline 2020- No [id number] 100mg Take 1 [facility] hyclate 100 06-02 capsule by i ty of mg capsule 00:00: 05:59 mouth [place] 00 :00 every 12 Medical (twelve) Branch hours for 10 days. lactobacill 2020- No [id number] 1{tbl} Take 1 [facility] us 06-02 tablet by ity of acidophilus 00:00: 05:59 mouth 2 [place] 25 million 00 :00 (two) Medical cell -100 times Branch mg captab daily for 10 days. ciprofloxac 2020- No [id number] 500mg Take 1 [facility] in HCl 500 06-02 tablet by ity of mg tablet 00:00: 05:59 mouth [place] 00 :00 every 12 Medical (twelve) Branch hours for 10 days. doxycycline No [id number] 100mg Take 1 [facility] hyclate 100 06-02 capsule by i ty of mg capsule 00:00: 05:59 mouth [place] 00 :00 every 12 Medical (twelve) Branch hours for 10 days. lactobacill 2020- No [id number] 1{tbl} Take 1 [facility] us 06-02 tablet by ity of acidophilus 00:00: 05:59 mouth 2 [place] 25 million 00 :00 (two) Medical cell -100 times Branch mg captab daily for 10 days. ciprofloxac No [id number] 500mg Take 1 [facility] in HCl 500 06-02 tablet by ity of mg tablet 00:00: 05:59 mouth [place] 00 :00 every 12 Medical (twelve) Branch hours for 10 days. doxycycline No [id number] 100mg Take 1 [facility] hyclate 100 06-02 capsule by i ty of mg capsule 00:00: 05:59 mouth [place] 00 :00 every 12 Medical (twelve) Branch hours for 10 days. lactobacill 2020- No [id number] 1{tbl} Take 1 [facility] us 06-02 tablet [...] 00 :00 ONCE, 1 Medical dose, [facility] Branch 06/01/20 at 0645, Routine
body service team member approving Restricted medication : OC BRYSON warfarin 2020- No 5mg 5 mg, Univers (COUMADIN) 05-30 Oral, ONCE it y of tablet 5 mg 23:00: 23:08 AT 1700, 1 [place] 00 :00 dose, [facility] Medical 05/30/20 at Branch 1700, Routine
INR Goal Range: 2-3
IND ICATION (More than one indication for warfarin can be selected): DVT and/or PE tamsulosin Yes .4mg 0.4 mg, Univ ers (FLOMAX) 05-30 Oral, ity of capsule 0.4 15:00: DAILY, [place] mg 00 First dose Medical on [facility] Branch 05/30/20 at 0900, Until Discontinu ed, Routine omeprazole Yes 20mg 20 mg, Unive rs (PRILOSEC) 05-30 Oral, ity of capsule 20 15:00: DAILY, [place] mg 00 First dose Medical on [facility] Branch 05/30/20 at 0900, Until Discontinu ed, Routine glipiZIDE Yes 5mg 5 mg, Univers (GLUCOTROL) 05-30 Oral, ity of tablet 5 mg 15:00: DAILY, [place] 00 First dose Medical on [facility] Branch 05/30/20 at 0900, Until Discontinu ed, Routine clopidogreL Yes 75mg 75 mg, Univ ers (PLAVIX) 05-30 Oral, ity of tablet 75 15:00: DAILY, [place] mg 00 First dose Medical on [facility] Branch 05/30/20 at 0900, Until Discontinu ed, Routine lisinopriL 2020- No 2.5mg 2.5 mg, Un [place] (PRINIVIL,Z 05-30 Oral, ity of ESTRIL) 15:00: 18:14 DAILY, [place] tablet 2.5 00 :04 First dose Med ical mg on [facility] Branch 05/30/20 at 0900, Until Discontinu ed, Routine doxazosin 2020- No 8mg 8 mg, Univer s (CARDURA) 05-30 Oral, ity of tablet 8 mg 15:00: 18:14 DAILY, [place] as 00 :04 First dose Medical on [facility] Branch 05/30/20 at 0900, Until Discontinu ed, Routine aspirin 2020- No 81mg 81 mg, Univers chewable 05-30 Oral, ity of tablet 81 15:00: 00:11 DAILY, [place] mg 00 :16 First dose Medical on [facility] Branch 05/30/20 at 0900, Until Discontinu ed, Routine amLODIPine No 5mg 5 mg, Unive rs (NORVASC) 05-30 Oral, ity of tablet 5 mg 15:00: 11:34 DAILY, [place] 00 :40 First dose Medical on [facility] Branch 05/30/20 at 0900, Until Discontinu ed, Routine enoxaparin Yes 1mg/kg 70 mg [facility] ers (LOVENOX) 05-30 (rounded ity of injection 14:00: from 74.8 [place] as 70 mg 00 mg = 1 Medical mg/kg Branch ?74.8 kg), Subcutaneo us, Q12H, First dose on [facility] 05/30/20 at 0800, Until Discontinu ed, Routine levothyroxi Yes 50ug 50 mcg, Uni vers ne 05-30 Oral, ity of (SYNTHROID) 12:00: QAM-0600, [place] tablet 50 00 First dose Medi uriel mcg on [facility] Branch 05/30/20 at 0600, Until Discontinu ed, Routine simvastatin Yes 40mg 40 mg, [facility] ers (ZOCOR) 05-30 Oral, QHS, ity of tablet 40 03:00: First dose [place] mg 00 on Fri Medical 05/29/20 at Branch 2100, Until Discontinu ed, Routine insulin NPH Yes 16U 16 Units, U nivbonnie (HUMULIN N) 05-30 Subcutaneo it y of injection 03:00: , [place] 16 Units 00 QAM+HS, Medical First dose Branch on Mon05/29/20 at 2100, Until Discontinu ed, Routine venlafaxine Yes 75mg 75 mg, Univ ers (EFFEXOR) 05-30 Oral, BID, ity of tablet 75 02:00: First dose [place] mg 00 on Mon Medical 05/29/20 at [place] 1999, Until Discontinu ed, Routine gabapentin 2020- No 300mg 300 mg, [facility] [place] (NEURONTIN) 05-30 Oral, TID, i ty of capsule 300 02:00: 17:53 First dose [place] mg 00 :30 on Mon Medical 05/29/20 at [place] 1999, Until Discontinu ed, Routine vancomycin 2020- No 1000mg 1,000 mg, Univers (VANCOCIN) 05-30 IV ity of 1,000 mg in 02:00: 14:39 [facility], [place] NaCl 0.9% 00 :56 Q12H ABX, Medic al (NS) 250 mL First dose Br anch VIAL-MATE on Mon [facility]/29/[facility], Until Discontinu ed, 250 mL
R debbie for Anti-Infec tive: Empiric Therapy for Suspected Infection< br>Empiric Therapy Site: Bone
Du ration of therapy: 7 days vancomycin 2020- No 1000mg 1,000 mg, Univers (VANCOCIN) 05-30 IV ity of injection 02:00: 21:33 [place]gyback, [place] 1,000 mg 00 :35 Q12H, Medical [...] Push, ity of mg 22:42: 17:53 Q4HPRN, [place] 04 :30 Starting Medical Mon05/29/20 Branch at 1642, Until 06/02/20 at 1153, [...] ity of mg 19:41: 19:45 ONCE, 1 [place] 00 :00 dose, Fri Medical 05/29/20 at Branch 1345, STAT ondansetron 2020- No 4mg 4 mg, Slow Univers (ZOFRAN 05-29 IV Push, ity of (PF)) 16:45: 15:55 ONCE, 1 [place] injection 4 00 :00 dose, Fri Med ical mg 05/29/20 at Branch 1045, Routine morpHINE 2020-0 2020- No 4mg 4 mg, Slow [place] injection 4 05-29-08 IV Push, ity of mg 16:45: 15:55 ONCE, 1 [place] 00 :00 dose, Fri Medical 05/29/20 at Branch 1045, STAT NaCl 0.9% 2020- No 1000mL at 999 Uni vers (NS) bolus 05-29-08 mL/hr, ity of infusion 16:45: 19:40 1,000 mL, [place] 1,000 mL 00 :00 IV Medical Piggyback, Branch ONCE, 1 dose, 05/29/20 at 1045, STAT bacitracin 2019- Yes [id number] Apply to [facility] 500 2-03 affected ity of unit/gram 00:00: area(s) 4 [place] ointment 00 (four) Medical times Branch daily. bacitracin 2020-1 Yes [id number] Apply to [facility] 500 2-03 affected ity of unit/gram 00:00: area(s) 4 [place] ointment 00 (four) Medical times Branch daily. bacitracin 2020-1 Yes [id number] Apply to [facility] 500 2-03 affected ity of unit/gram 00:00: area(s) 4 [place] ointment 00 (four) Medical times Branch daily. bacitracin 2020-1 Yes [id number] Apply to [facility] 500 2-03 affected ity of unit/gram 00:00: area(s) 4 [place] ointment 00 (four) Medical times Branch daily. bacitracin 2020-1 Yes [id number] Apply to [facility] 500 2-03 affected ity of unit/gram 00:00: area(s) 4 [place] ointment 00 (four) Medical times Branch daily. bacitracin 2020-1 Yes [id number] Apply to [facility] 500 2-03 affected ity of unit/gram 00:00: area(s) 4 [place] ointment 00 (four) Medical times Branch daily. bacitracin 2020-1 Yes [id number] Apply to [facility] 500 2-03 affected ity of unit/gram 00:00: area(s) 4 [place] ointment 00 (four) Medical times Branch daily. bacitracin 2020-1 Yes [id number] Apply to [facility] 500 2-03 affected ity of unit/gram 00:00: area(s) 4 [place] ointment 00 (four) Medical times Branch daily. bacitracin 2019- Yes [id number] Apply to [facility] 500 2-03 affected ity of unit/gram 00:00: area(s) 4 [place] ointment 00 (four) Medical times Branch daily. bacitracin 2019- Yes [id number] Apply to [facility] 500 2-03 affected ity of unit/gram 00:00: area(s) 4 [place] ointment 00 (four) Medical times Branch daily. bacitracin 2019-2020- No [id number] Apply to [facility] 500 2-03 03-08 affected ity of unit/gram 00:00: 00:00 area(s) 4 [place] ointment 00 :00 (four) Medical times Branch daily. aspirin 81 2019-05 Yes [id number] 81mg Take 1 Univers mg chewable 1-06 98084 tablet by it y of tablet 00:00: mouth [place] 00 daily. Medical Branch aspirin 81 2019-05 Yes [id number] 81mg Take 1 [facility] mg chewable 1-06 85415 tablet by it y of tablet 00:00: mouth [place] 00 daily. Medical Branch aspirin 81 2019- Yes [id number] 81mg Take 1 [facility] mg chewable 1-06 [id number] tablet by it y of tablet 00:00: mouth [place] 00 daily. Medical Branch aspirin 81 2019-05 Yes [id number] 81mg Take 1 [facility] mg chewable 1-06 [id number] tablet by it y of tablet 00:00: mouth [place] 00 daily. Medical Branch aspirin 81 2019-05 Yes [id number] 81mg Take 1 [facility] mg chewable 1-06 51865 tablet by it y of tablet 00:00: mouth [place] 00 daily. Medical Branch aspirin 81 2020- Yes [id number] 81mg Take 1 [facility] mg chewable 1-06 71112 tablet by it y of tablet 00:00: mouth [place] 00 daily. Medical Branch aspirin 81 2019- Yes [id number] 81mg Take 1 [facility] mg chewable 1-06 [id number] tablet by it y of tablet 00:00: mouth [place] 00 daily. Medical Branch aspirin 81 2019- Yes [id number] 81mg Take 1 [facility] mg chewable 1-06 44760 tablet by it y of tablet 00:00: mouth [place] 00 daily. Medical Branch aspirin 81 2020- Yes [id number] 81mg Take 1 [facility] mg chewable 1-06 02227 tablet by it y of tablet 00:00: mouth [place] 00 daily. Medical Branch aspirin 81 2020- Yes [id number] 81mg Take 1 [facility] mg chewable 1-06 22449 tablet by it y of tablet 00:00: mouth [place] 00 daily. Medical Branch aspirin 81 2020- Yes [id number] 81mg Take 1 [facility] mg chewable 1-06 23179 tablet by it y of tablet 00:00: mouth [place] 00 daily. Medical Branch aspirin 81 2020- Yes [id number] 81mg Take 1 [facility] mg chewable 1-06 19365 tablet by it y of tablet 00:00: mouth [place] 00 daily. Medical Branch aspirin 81 2020- Yes [id number] 81mg Take 1 [facility] mg chewable 1-06 33733 tablet by it y of tablet 00:00: mouth [place] 00 daily. Medical Branch aspirin 81 2020- Yes [id number] 81mg Take 1 [facility] mg chewable 1-06 21494 tablet by it y of tablet 00:00: mouth [place] 00 daily. Medical Branch aspirin 81 2020- Yes [id number] 81mg Take 1 [facility] mg chewable 1-06 46127 tablet by it y of tablet 00:00: mouth [place] 00 daily. Medical Branch aspirin 81 2020- Yes [id number] 81mg Take 1 [facility] mg chewable 1-06 52037 tablet by it y of tablet 00:00: mouth [place] 00 daily. Medical Branch aspirin 81 2020- Yes [id number] 81mg Take 1 [facility] mg chewable 1-06 44206 tablet by it y of tablet 00:00: mouth [place] 00 daily. Medical Branch aspirin 81 2020- Yes [id number] 81mg Take 1 [facility] mg chewable 1-06 75402 tablet by it y of tablet 00:00: mouth [place] 00 daily. Medical Branch aspirin 81 2020-1 Yes [id number] 81mg Take 1 [facility] mg chewable 1-06 44361 tablet by it y of tablet 00:00: mouth [place] 00 daily. Medical Branch aspirin 81 2020- Yes [id number] 81mg Take 1 [facility] mg chewable 1-06 43482 tablet by it y of tablet 00:00: mouth [place] 00 daily. Medical Branch aspirin 81 2020- Yes [id number] 81mg Take 1 [facility] mg chewable 05-2707 tablet by it y of tablet 00:00: mouth [place] 00 daily. Medical Branch aspirin 81 2019-05 Yes [id number] 81mg Take 1 [facility] mg chewable 05-27 41375 tablet by it y of tablet 00:00: mouth [place] 00 daily. Medical Branch aspirin 81 2019-05- No [id number] 81mg Take 1 [facility] mg chewable 05-27- 88413 tablet by i ty of tablet 00:00: [...] Other (see Comments) insulin NPH 2019-05 Yes [id number] 5U inject 5 [facility] 100 unit/mL 05-26 24184 Units ity of injection 00:00: under the [place] 00 skin every Medical morning Branch and at bedtime. insulin NPH 2019-05 Yes [id number] 5U inject 5 [facility] 100 unit/mL 05-26 30170 Units ity of injection 00:00: under the [place] 00 skin every Medical morning Branch and at bedtime. insulin NPH 2019-05 Yes [id number] 5U inject 5 [facility] 100 unit/mL - 96840 Units ity of injection 00:00: under the [place] 00 skin every Medical morning Branch and at bedtime. insulin NPH 2019-05 Yes [id number] 5U inject 5 [facility] 100 unit/mL - 09127 Units ity of injection 00:00: under the [place] 00 skin every Medical morning Branch and at bedtime. insulin NPH 2019-05 Yes [id number] 5U inject 5 [facility] 100 unit/mL - 41925 Units ity of injection 00:00: under the [place] 00 skin every Medical morning Branch and at bedtime. insulin NPH 2019-05 Yes [id number] 5U inject 5 [facility] 100 unit/mL 05-26 63607 Units ity of injection 00:00: under the [place] 00 skin every Medical morning Branch and at bedtime. insulin NPH 2019-05 Yes [id number] 5U inject 5 [facility] 100 unit/mL 05-26 59258 Units ity of injection 00:00: under the [place] 00 skin every Medical morning Branch and at bedtime. insulin NPH 2019-05 Yes [id number] 5U inject 5 [facility] 100 unit/mL 05-26 30154 Units ity of injection 00:00: under the [place] 00 skin every Medical morning Branch and at bedtime. acetaminoph 2019-05- No [id number] 650mg Take 2 Univers en 325 mg 05-26 25022 tablets by it y of tablet 00:00: 04:59 mouth [place] 00 :00 every 6 Medical (six) Branch hours. acetaminoph 2019-05- No [id number] 650mg Take 2 Univers en 325 mg 05-26 37183 tablets by it y of tablet 00:00: 04:59 mouth [place] 00 :00 every 6 Medical (six) Branch hours. acetaminoph 2019-05- No [id number] 650mg Take 2 Univers en 325 mg 05-26 48824 tablets by it y of tablet 00:00: 04:59 mouth [place] 00 :00 every 6 Medical (six) Branch hours. acetaminoph 2019-05- No [id number] 650mg Take 2 Univers en 325 mg 05-26 53449 tablets by it y of tablet 00:00: 04:59 mouth [place] 00 :00 every 6 Medical (six) Branch hours. acetaminoph 2019-05- No [id number] 650mg Take 2 Univers en 325 mg 05-26 82579 tablets by it y of tablet 00:00: 04:59 mouth [place] 00 :00 every 6 Medical (six) Branch hours. acetaminoph 2019-05- No [id number] 650mg Take 2 Univers en 325 mg 05-26 39659 tablets by it y of tablet 00:00: 04:59 mouth [place] 00 :00 every 6 Medical (six) Branch hours. acetaminoph 2019-05- No [id number] 650mg Take 2 Univers en 325 mg 05-26 [id number] tablets by it y of tablet 00:00: 04:59 mouth [place] 00 :00 every 6 Medical (six) Branch hours. acetaminoph 2019-05- No [id number] 650mg Take 2 Univers en 325 mg 05-26 53699 tablets by it y of tablet 00:00: 04:59 mouth [place] 00 :00 every 6 Medical (six) Branch hours. acetaminoph 2019-05- No [id number] 650mg Take 2 Univers en 325 mg 05-26 90950 tablets by it y of tablet 00:00: 04:59 mouth [place] 00 :00 every 6 Medical (six) Branch hours. acetaminoph 2019-05- No [id number] 650mg Take 2 Univers en 325 mg 05-26 52969 tablets by it y of tablet 00:00: 04:59 mouth [place] 00 :00 every 6 Medical (six) Branch hours. acetaminoph 2019-05- No [id number] 650mg Take 2 Univers en 325 mg 05-26 04590 tablets by it y of tablet 00:00: 04:59 mouth [place] 00 :00 every 6 Medical (six) Branch hours. acetaminoph 2019-05- No [id number] 650mg Take 2 [facility] en 325 mg 05-26 [id number] tablets by it y of tablet 00:00: 04:59 mouth [place] 00 :00 every 6 Medical (six) Branch hours. acetaminoph 2019-05- No [id number] 650mg Take 2 [facility] en 325 mg 05-26 [id number] tablets by it y of tablet 00:00: 04:59 mouth [place] 00 :00 every 6 Medical (six) Branch hours. acetaminoph 2019-05- No [id number] 650mg Take 2 [facility] en 325 mg 05-26 [id number] tablets by it y of tablet 00:00: 04:59 mouth [place] 00 :00 every 6 Medical (six) Branch hours. acetaminoph 2019-05- No [id number] 650mg Take 2 [facility] en 325 mg 05-26 [id number] tablets by it y of tablet 00:00: 04:59 mouth [place] 00 :00 every 6 Medical (six) Branch hours. acetaminoph 2019-05- No [id number] 650mg Take 2 [facility] en 325 mg 05-26 [id number] tablets by it y of tablet 00:00: 04:59 mouth [place] 00 :00 every 6 Medical (six) Branch hours. acetaminoph 2019-05- No [id number] 650mg Take 2 [facility] en 325 mg 05-26 [id number] tablets by it y of tablet 00:00: 04:59 mouth [place] 00 :00 every 6 Medical (six) Branch hours. acetaminoph 2019-05- No [id number] 650mg Take 2 [facility] en 325 mg 05-26 [id number] tablets by it y of tablet 00:00: 04:59 mouth [place] 00 :00 every 6 Medical (six) Branch hours. acetaminoph 2019-05- No [id number] 650mg Take 2 [facility] en 325 mg 05-26 [id number] tablets by it y of tablet 00:00: 04:59 mouth [place] 00 :00 every 6 Medical (six) Branch hours. acetaminoph 2019-05- No [id number] 650mg Take 2 [facility] en 325 mg 05-26 [id number] tablets by it y of tablet 00:00: 04:59 mouth [place] 00 :00 every 6 Medical (six) Branch hours. acetaminoph 2019-05- No [id number] 650mg Take 2 [facility] en 325 mg 05-26 [id number] tablets by it y of tablet 00:00: 04:59 mouth [place] 00 :00 every 6 Medical (six) Branch hours. acetaminoph 2019-05- No [id number] 650mg Take 2 [facility] en 325 mg 05-26 [id number] tablets by it y of tablet 00:00: 04:59 mouth [place] 00 :00 every 6 Medical (six) Branch hours. acetaminoph 2019-05- No [id number] 650mg Take 2 [facility] en 325 mg 05-26 [id number] tablets by it y of tablet 00:00: 04:59 mouth [place] 00 :00 every 6 Medical (six) Branch hours. acetaminoph 2019-05- No [id number] 650mg Take 2 [facility] en 325 mg 05-26 [id number] tablets by it y of tablet 00:00: 04:59 mouth [place] 00 :00 every 6 Medical (six) Branch hours. acetaminoph 2019-05- No [id number] 650mg Take 2 [facility] en 325 mg 05-26 [id number] tablets by it y of tablet 00:00: 04:59 mouth [place] 00 :00 every 6 Medical (six) Branch hours. acetaminoph 2019-05- No [id number] 650mg Take 2 [facility] en 325 mg 05-26 [id number] tablets by it y of tablet 00:00: 04:59 mouth [place] 00 :00 every 6 Medical (six) Branch hours. acetaminoph 2019-05- No [id number] 650mg Take 2 [facility] en 325 mg 05-26 [id number] tablets by it y of tablet 00:00: 04:59 mouth [place] 00 :00 every 6 Medical (six) Branch hours. acetaminoph 2019-05- No [id number] 650mg Take 2 [facility] en 325 mg 05-26 [id number] tablets by it y of tablet 00:00: 04:59 mouth [place] 00 :00 every 6 Medical (six) Branch hours. acetaminoph 2019-05- No [id number] 650mg Take 2 [facility] en 325 mg 05-26 [id number] tablets by it y of tablet 00:00: 04:59 mouth [place] 00 :00 every 6 Medical (six) Branch hours. acetaminoph 2019-05- No [id number] 650mg Take 2 [facility] en 325 mg 05-26 [id number] tablets by it y of tablet 00:00: 04:59 mouth [place] 00 :00 every 6 Medical (six) Branch hours. acetaminoph 2019-05- No [id number] 650mg Take 2 [facility] en 325 mg 05-26 [id number] tablets by it y of tablet 00:00: 04:59 mouth [place] 00 :00 every 6 Medical (six) Branch hours. acetaminoph 2019-05- No [id number] 650mg Take 2 [facility] en 325 mg 05-26 [id number] tablets by it y of tablet 00:00: 04:59 mouth [place] 00 :00 every 6 Medical (six) Branch hours. acetaminoph 2019-05- No [id number] 650mg Take 2 [facility] en 325 mg 05-26 [id number] tablets by it y of tablet 00:00: 04:59 mouth [place] 00 :00 every 6 Medical (six) Branch hours. acetaminoph 2019-05- No [id number] 650mg Take 2 [facility] en 325 mg 05-26 [id number] tablets by it y of tablet 00:00: 04:59 mouth [place] 00 :00 every 6 Medical (six) Branch hours. acetaminoph 2019-05- No [id number] 650mg Take 2 [facility] en 325 mg 05-26 [id number] tablets by it y of tablet 00:00: 04:59 mouth [place] 00 :00 every 6 Medical (six) Branch hours. acetaminoph 2019-05- No [id number] 650mg Take 2 [facility] en 325 mg 05-26 [id number] tablets by it y of tablet 00:00: 04:59 mouth [place] 00 :00 every 6 Medical (six) Branch hours. acetaminoph 2019-05- No [id number] 650mg Take 2 [facility] en 325 mg 05-26 [id number] tablets by it y of tablet 00:00: 04:59 mouth [place] 00 :00 every 6 Medical (six) Branch hours. acetaminoph 2019-05- No [id number] 650mg Take 2 [facility] en 325 mg 05-26 [id number] tablets by it y of tablet 00:00: 04:59 mouth [place] 00 :00 every 6 Medical (six) Branch hours. insulin NPH 2019-05- No [id number] 5U inject 5 Univers 100 unit/mL 05-26 38150 Units ity o f injection 00:00: 00:00 under the [place] 00 :00 skin every Medical morning Branch and at bedtime. levoFLOXaci 2019-05- No [id number] 750mg Take 1 [facility] n 750 mg 05-26 tablet by ity of tablet 00:00: 05:59 mouth [place] 00 :00 every 24 Medical (twenty-fo Branch ur) hours for 9 days. levoFLOXaci 2019-05- No [id number] 750mg Take 1 Univers n 750 mg 05-26 [id number] tablet by ity of tablet 00:00: 05:59 mouth [place] 00 :00 every 24 Medical (twenty-fo Branch ur) hours for 9 days. lisinopriL 2019-05 Yes 2.5mg 2.5 mg, Uni vers (PRINIVIL,Z 05-23 Oral, ity of ESTRIL) 15:00: DAILY, [place] tablet 2.5 00 First dose Med ical mg on [facility] 03/23/20 at 0900, Until Discontinu ed, Routine KCL 2019-05 Yes 20meq 20 mEq, Univers (KLOR-CON 05-23 Oral, ity of M20) tablet 15:00: DAILY, [place] 20 mEq 00 First dose Medical on [facility] 03/23/20 at 0900, Until Discontinu ed, Routine clopidogreL 2019-05 Yes 75mg 75 mg, Univ ers (PLAVIX) 05-23 Oral, ity of tablet 75 15:00: DAILY, [place] mg 00 First dose Medical on [facility] 03/23/20 at 0900, Until Discontinu ed, Routine metoprolol 2019-05 Yes 25mg 25 mg, Unive rs succinate 05-23 Oral, BID, ity of XL (TOPROL 02:00: First dose [place] XL) tablet 00 on [facility] 25 mg 03/22/20 at Branch 2000, Until Discontinu ed, Routine apixaban 2019-05 Yes 1358 5mg 5 mg, Univers (ELIQUIS) 05-23 Oral, BID, ity of tablet 5 mg 02:00: First dose [place] 00 on [facility] 03/22/20 at Branch 2000, Until Discontinu ed, Routine furosemide 2019-05 Yes 40mg 40 mg, Unive rs (LASIX) 05-22 Oral, ity of tablet 40 23:00: QAM+PM, [place] mg 00 First dose Medical on [facility] 03/22/20 at 1700, Until Discontinu ed, Routine levoFLOXaci 2019-05 2020- No 750mg 750 mg, U nivers n 0-31 11-04 Oral, Q24H ity of (LEVAQUIN) 12:45: 14:05 ABX, 5 [place] tablet 750 00 :00 doses, Medical mg First dose Branch on Mon03/21/20 at 0745, Last dose on [...] 21:42 Starting [place] injection 00 :23 [facility] Medical 03/18/20 Branch at 1515, Until Mon03/18/20 at 1642, Routine, Intra-op dexamethaso 2019-05- No ONCE INTRA Univers ne 03-18 PROCEDURE, ity of (DECADRON 19:36: 21:42 Starting [place] PHOSPHATE) 00 :23 Wed Medical injection 03/18/20 Branch at 1436, Until Mon03/18/20 at 1642, Routine, Intra-op albumin 2019-05- No CONTINUOUS Uni vers (ALBUMINAR- 03-18 PRN, ity of 5) 5 % 19:30: 21:42 Starting [place] injection 00 :23 [facility] Medical 03/18/20 Branch at 1430, Until Mon03/18/20 at 1642, Intra-op FENTanyl PF 2019-05- No ONCE INTRA Univers (SUBLIMAZE 03-18 PROCEDURE, it y of (PF)) 19:27: 21:42 Starting [place] injection 00 :23 [facility] Medical 03/18/20 Branch at 1427, Until Mon03/18/20 at 1642, Routine, Intra-op meropenem 2019-05 2020- No CONTINUOUS U nivers (MERREM) 03-18 PRN, ity of 500 mg in 19:21: 21:42 Starting [place] NaCl 0.9% 00 :23 [facility] Medical (NS) 100 mL 03/18/20 Bran ch IV at 1421, piggyback Until Mon03/18/20 at 1642, 100 mL, Intra-op PHENYLephri 2019-05 2020- No CONTINUOUS Univers ne 1000 03-18 PRN, ity of mcg/10 mL 19:09: 21:42 Starting [place] in 0.9% 00 :23 [facility] Medical NaCl 03/18/20 Branch syringe at 1409, Until Mon03/18/20 at 1642, Routine, Intra-op PHENYLephri 2019-05 2020- No ONCE INTRA Univers ne 1000 03-18 PROCEDURE, ity o f mcg/10 mL 19:09: 21:42 Starting [place] in 0.9% 00 : [facility] Medical NaCl 03/18/20 Branch syringe at 1409, Until Mon03/18/20 at 1642, Routine, Intra-op propofoL IV 2019-05 2020- No ONCE INTRA Univers infusion 03-18 PROCEDURE, ity of 18:55: 21:42 Starting [place] 00 :23 [facility] Medical 03/18/20 Branch at 1355, Until Mon03/18/20 at 1642, Routine, Intra-op lidocaine 2019-05 2020- No ONCE INTRA U nivers 1% 03-18 PROCEDURE, ity of (XYLOCAINE) 18:55: 21:42 Starting [place] 100 mg/10 [facility] Medical mL (1 %) 03/18/20 Branch injection at 1355, Until Mon03/18/20 at 1642, Routine, Intra-op bupivacaine 2019-05 2020- No ONCE INTRA Univers (preserv 03-18 PROCEDURE, ity of free) 18:38: 21:42 Starting [place] (SENSORCAIN 00 :23 [facility] Medical E MPF) 0.25 03/18/20 Bran ch % (2.5 at 1338, mg/mL) Until Wed injection 03/18/20 at 1642, Routine, Intra-op midazolam 2019- 2020- No ONCE INTRA U nivers (VERSED) 03-18 PROCEDURE, ity of injection 18:22: 21:42 Starting [place] 00 :23 [facility] Medical 03/18/20 Branch at 1322, Until Mon03/18/20 at 1642, Routine, Intra-op lactated 2019-05 2020- No CONTINUOUS Un charley ringers IV 0-28 10-28 PRN, ity of infusion 18:15: 21:42 [place] 00 :23 [facility] 03/18/20 Branch at 1315, Until Mon03/18/20 at 1642, Routine, Intra-op atorvastati 2019-05 Yes 40mg 40 mg, Univ ers n (LIPITOR) 0-27 Oral, QHS, it y of tablet 40 02:00: First dose [place] mg 00 on [facility] 03/16/20 Branch at 2100, Until Discontinu ed, [...] mg 30 Starting Medica l tablet 1 [facility] tablet 03/16/20 at 1156, Until Discontinu ed, Routine, Pain (scale 4-6) NaCl 0.9% 2019-05 Yes 10mL 10 mL, Univer s (NS) 0-26 Slow IV ity of injection 16:56: Push, PRN, [place] 10 mL 09 Starting Medical [facility] Branch 03/16/20 at 1156, Until Discontinu ed, Routine, line maintenanc e lidocaine 2019-05 Yes 5mL 5 mL, Univers 1% (PF) 0-26 Subcutaneo ity of (XYLOCAINE) 16:56: us, PRN, [place] injection 5 09 Starting Medi uriel mL [facility] Branch 03/16/20 at 1156, Until Discontinu ed, Routine, Local anesthesia NaCl 0.9% 2019-05 2020- No IV Univers (NS) 1000 0- 10-29 Infusion, ity of mL + KCL 20 16:45: 14:26 at 150 [place] mEq 00 :04 mL/hr, Medical CONTINUOUS Branch , Starting 03/16/20 at 1145, Until [place] 03/19/20 at 0926, Routine NaCl 0.9% 2019-05- No 1000mL at 999 Uni vers (NS) bolus 0-26 10-26 mL/hr, ity of infusion 15:00: 13:52 1,000 mL, [place] 1,000 mL 00 :00 IV Medical Piggyback, Branch ONCE, 1 dose, Mon03/16/20 at 1000, STAT KCL 2019-05- No 40meq 40 mEq, Univers (KLOR-CON 0-26 10-26 Oral, Q2H, ity of M20) tablet 15:00: 17:18 2 doses, [place] 40 mEq 00 :00 First dose Medical on Mon03/16/20 at 1000, Last dose on Mon03/16/20 at 1200, Routine heparin 2019-05- No 1300U/h 1,300 Unive rs 25,000 0-26 10-27 Units/hr ity of Units/250 14:25: 13:42 [...] ____ &nbs p; FO R [facility] ONLY - aPTT < 35: [...] :00 ONCE, 1 Medical Soln 5,000 dose, [facility] Bran ch Units 03/16/20 at 0915, Routine heparin 2019-05 Yes 3000U FOR Univers (1,000 0-26 REBOLUSING ity of unit/mL, 10 14:11: , Starting [place] mL vial) 00 [facility] 03/16/20 Branch at 0911, Until Discontinu ed, Routine
Dosing based on aPTT testing parameters (refer to continuous heparin drip order)
aspirin 2019-05 Yes 81mg 81 mg, Univers chewable 0-26 Oral, ity of tablet 81 14:00: DAILY, [place] mg 00 First dose Medical on [facility] Branch 03/16/20 at 0900, Until Discontinu ed, Routine pantoprazol 2019-05 Yes 20mg 20 mg, Univ ers e 0-26 Oral, ity of (PROTONIX) 14:00: DAILY, [place] EC tablet 00 First dose Medi uriel 20 mg on [facility] Branch 03/16/20 at 0900, Until Discontinu ed, Routine insulin NPH 2019-05 Yes 5U 5 Units, Un charley (HUMULIN N) 0-26 Subcutaneo it y of injection 5 14:00: , [place] Units 00 QAM+HS, Medical First dose Branch on [facility] 03/16/20 at 0900, Until Discontinu ed, Routine lactobacill 2019-05 Yes 1{tbl} 1 tablet, Univers us 0-26 Oral, TID, ity of acidophilus 13:00: First dose [place] (ACIDOPHILL 00 on [facility] Medica l US) 25 03/16/20 Branch million at 0800, cell -100 Until mg captab 1 Discontinu tablet ed, Routine venlafaxine 2019-05 Yes 75mg 75 mg, Univ ers (EFFEXOR) 0-26 Oral, BID, ity of tablet 75 13:00: First dose [place] mg 00 on [facility] 03/16/20 Branch at 0800, Until Discontinu ed, Routine meropenem 2019-05 No 500mg 500 mg, IV Univers (MERREM) 031 Piggyback, ity of 500 mg in 13:00: 11:33 Administer [place] NaCl 0.9% 00 :35 over 60 Medical (NS) 100 mL Minutes, Bran ch MINI-BAG Q8H ABX, First dose on [facility] 03/16/20 at 0800, Until Discontinu ed, PIERRE
Re stricted use approved by: ADC PROVIDER<b r>Reason for Anti-Infec tive: Documented Infection< br>Documen ludmila Infection Site: Skin / Soft Tissue
Duration of Therapy: 7 days morpHINE 2019-05 Yes 2mg 2 mg, Slow Uni vers injection 2 0 IV Push, ity of mg 11:24: Q4HPRN, [place] 54 Starting [facility] 03/16/20 at 0624, Until Discontinu ed, Routine, Pain (scale 7-10) NaCl 0.9% 2019-05 No 1000mL at 999 Uni vers (NS) bolus 0- 10-26 mL/hr, ity of infusion 11:08: 11:11 1,000 mL, [place] 1,000 mL 00 :00 IV Medical Piggyback, [place] ONCE, 1 dose, [facility] 03/16/20 at 0615, STAT levothyroxi 2019-05 Yes 50ug 50 mcg, Uni vers ne 0 Oral, ity of (SYNTHROID) 11:00: QAM-0600, [place] tablet 50 00 First dose Medi uriel mcg on [facility] Branch 03/16/20 at 0600, Until Discontinu ed, Routine HYDROcodone 2019-05- No 1{tbl} 1 tablet, Univers -acetaminop 003-16 Oral, ity of hen (NORCO 09:34: 11:25 Q6HPRN, [place] 5) 5-325 mg 55 :02 Starting Medi uriel tablet 1 [facility] tablet 03/16/20 at 0434, Until [facility] 03/16/20 at 0625, Routine, Pain (scale 4-6) clindamycin 2019-05 No 900mg 900 mg, IV Univers in [...] 15mg/kg 1,250 mg Univers 1250 mg in 03-21 (rounded ity of NS 250 mL 08:45: [...] 1000mL at 100 Uni vers (NS) IV 0 10-26 mL/hr, IV ity of infusion 08:45: 15:44 Infusion, [place] 1,000 mL 00 :40 CONTINUOUS Medic al , Starting Branch Mon03/16/20 at 0345, Until Mon03/16/20 at 1044, Routine FENTanyl PF 2019-05- No 25ug 25 mcg, Un char[place] (SUBLIMAZE 0-16 03-26 Slow IV ity o f (PF)) 08:03: [...] 1 [place] injection 4 00 :00 dose, [facility] Med ical mg 03/16/20 Branch at 0100, PIERRE morpHINE 2019-05- No 4mg 4 mg, Slow Un [place] injection 4 0-26 10-26 IV Push, ity of mg 06:00: 06:01 ONCE, 1 [place] 00 :00 dose, [facility] 03/16/20 Branch at 0100, STAT NaCl 0.9% 2019-05- No 30mL/kg at 999 [place] (NS) bolus 0-26 10-26 mL/hr, ity of infusion 06:00: 06:05 2,382 mL [place] 2,382 mL 00 :00 (30 mL/kg Medica l ?79.4 kg), Branch IV Piggyback, ONCE, 1 dose, [facility] 03/16/20 at 0100, STAT piperacilli 2019-05- No 3.375g 3.375 g, Univers n-tazobacta 0-16 03- IV ity of m (ZOSYN) 05:00: 08:32 Piggyback, [place] injection 00 :59 Q6H, First Medi uriel 3.375 g dose on Branch [facility] 03/16/20 at 0000, Until Discontinu ed, PIERRE
Re ason for Anti-Infec tive: Empiric Therapy for Suspected Infection< br>Empiric Therapy Site: Skin / Soft tissue
Duration of therapy: 72 hours KCL 20 mEq 2020-0 Yes [id number] 20meq Take 1 Univers tablet 9-17 tablet by ity of 00:00: mouth [place] 00 daily. Medical Branch KCL 20 mEq 2020-0 Yes [id number] 20meq Take 1 Univers tablet 9-17 tablet by ity of 00:00: mouth [place] 00 daily. Medical Branch KCL 20 mEq 2020-0 Yes [id number] 20meq Take 1 Univers tablet 9-17 tablet by ity of 00:00: mouth [place] 00 daily. Medical Branch KCL 20 mEq 2020-0 Yes [id number] 20meq Take 1 Univers tablet 9-17 tablet by ity of 00:00: mouth [place] 00 daily. Medical Branch KCL 20 mEq 2020-0 Yes [id number] 20meq Take 1 Univers tablet 9-17 tablet by ity of 00:00: mouth [place] 00 daily. Medical Branch KCL 20 mEq 2020-0 Yes [id number] 20meq Take 1 Univers tablet 9-17 tablet by ity of 00:00: mouth [place] 00 daily. Medical Branch KCL 20 mEq 2020-0 Yes [id number] 20meq Take 1 Univers tablet 9-17 tablet by ity of 00:00: mouth [place] 00 daily. Medical Branch KCL 20 mEq 2020-0 Yes [id number] 20meq Take 1 Univers tablet 9-17 tablet by ity of 00:00: mouth [place] 00 daily. Medical Branch KCL 20 mEq 2020-0 Yes [id number] 20meq Take 1 Univers tablet 9-17 tablet by ity of 00:00: mouth [place] 00 daily. Medical Branch KCL 20 mEq 2020-0 Yes [id number] 20meq Take 1 Univers tablet 9-17 tablet by ity of 00:00: mouth [place] 00 daily. Medical Branch KCL 20 mEq 2020-0 Yes [id number] 20meq Take 1 Univers tablet 9-17 tablet by ity of 00:00: mouth [place] 00 daily. Medical Branch KCL 20 mEq 2020-0 2020- No [id number] 20meq Take 1 Univers tablet 9-17 01-08 tablet by ity of 00:00: 00:00 mouth [place] 00 :00 daily. Medical Branch venlafaxine 2019-0 2019- No 75mg Take 75 mg Univers 75 mg 02-04 by mouth 2 ity of tablet 20:50: 00:00 (two) [place] 43 :00 times Medical daily. Branch levothyroxi 2019-0 2019- No 50ug Take 50 [place] ne 50 mcg 02-04 mcg by ity of tablet 20:50: 00:00 mouth [place] 43 :00 every Medical morning. Branch tamsulosin 2019-0 2020- No Take by [place] 0.4 mg 24 02-04- mouth ity of hr capsule 20:50: 00:00 daily. [place] 43 :00 Medical Branch lisinopril 2019-0 2020- No 2.5mg Take 2.5 U nivers 2.5 mg 02-04 mg by ity of tablet 20:50: 00:00 mouth [place] 43 :00 daily. Medical Branch magnesium 2019-0 2020- No 296mL 296 mL, Uni vers citrate 02-04 Oral, ity of solution 18:00: 17:26 ONCE, 1 [place] 296 mL 00 :00 dose, Mon Medical 02/05/20 at Branch 1300, Routine furosemide 2019-0 Yes 20mg 20 mg, IV [place] (LASIX) 02-04 Push, Q6H, ity of injection 17:00: First dose [place] 20 mg 00 (after Medical last Branch modificati on) on Mon02/05/20 at 1200, Until Discontinu ed, PIERRE KCL 2019-0 Yes 40meq 40 mEq, Univers (KLOR-CON -16 Oral, ity of M20) tablet 14:00: DAILY, [place] 40 mEq 00 First dose Medical on Mon [place] 02/05/20 at 0900, Until Discontinu ed, Routine aspirin 2019-0 Yes 81mg 81 mg, Univers chewable -16 Oral, ity of tablet 81 14:00: DAILY, [place] mg 00 First dose Medical on Mon [place] 02/05/20 at 0900, Until Discontinu ed, Routine atorvastati 2019-0 Yes 40mg 40 mg, Univ ers n (LIPITOR) 9-16 Oral, QHS, it y of tablet 40 02:00: First dose [place] mg 00 on Mon [facility] 02/04/20 at Branch 2100, Until Discontinu ed, Routine apixaban 5 2019-0 Yes 1358 5mg Take 1 Unive rs mg tablet 9-16 tablet by ity o f 00:00: mouth 2 [place] 00 (two) Medical times [place] daily. Indication s: atrial fibrillati on clopidogreL 2019-0 Yes [id number] 75mg Take 1 Univers 75 mg 9-16 tablet by ity of tablet 00:00: mouth [place] 00 daily. Medical Branch nitroglycer 2020-[id number] 1 Univers in 0.4 mg 9-16 tablet ity of sublingual 00:00: under the [place] tablet 00 tongue Medical every 5 Branch (five) minutes as needed for Chest pain. pantoprazol 2019-0 Yes [id number] 20mg Take 1 U nivers e 20 mg EC 9-16 tablet by ity of tablet 00:00: mouth [place] 00 daily. Medical Branch lisinopriL 2020-0 Yes [id number] 2.5mg Take 1 Univers 2.5 mg 9-16 tablet by ity of tablet 00:00: mouth [place] 00 daily. Medical Branch levothyroxi 2020-0 Yes [id number] 50ug Take 1 Univers ne 50 mcg 9-16 tablet by ity o f tablet 00:00: mouth [place] 00 every Medical morning. Branch tamsulosin 2020-0 Yes [id number] .4mg Take 1 Univers 0.4 mg 24 9-16 capsule by ity of hr capsule 00:00: mouth [place] 00 daily. Medical Branch venlafaxine 2019-0 Yes [id number] 75mg Take 1 Univers 75 mg 9-16 tablet by ity of tablet 00:00: mouth 2 [place] 00 (two) Medical times Branch daily. glipiZIDE 5 2019-0 Yes [id number] 5mg Take 1 Univers mg tablet 9-16 tablet by ity o f 00:00: mouth 2 [place] 00 (two) Medical times Branch daily before breakfast and dinner. metoprolol 2020-0 Yes [id number] 25mg Take 1 Univers succinate 9-16 tablet by ity o f XL 25 mg 24 00:00: mouth 2 [place] hr tablet 00 (two) Medical times Branch daily. furosemide 2020-0 Yes [id number] 40mg Take 1 Univers 40 mg 9-16 tablet by ity of tablet 00:00: mouth [place] 00 every Medical morning Branch and evening. atorvastati 2020-0 Yes [id number] 40mg Take 1 U nivers n 40 mg 9-16 tablet by ity of tablet 00:00: mouth at [place] 00 bedtime. Medical Branch apixaban 5 2020-0 Yes [id number] 5mg Take 1 Unive rs mg tablet 9-16 tablet by ity o f 00:00: mouth 2 [place] 00 (two) Medical times Branch daily. Indication s: atrial fibrillati on clopidogreL 2020-0 Yes [id number] 75mg Take 1 Univers 75 mg 9-16 tablet by ity of tablet 00:00: mouth [place] 00 daily. Medical Branch nitroglycer 2020-[id number] 1 Univers in 0.4 mg 9-16 tablet ity of sublingual 00:00: under the [place] tablet 00 tongue Medical every 5 Branch (five) minutes as needed for Chest pain. pantoprazol 2020-0 Yes [id number] 20mg Take 1 U nivers e 20 mg EC 9-16 tablet by ity of tablet 00:00: mouth [place] 00 daily. Medical Branch lisinopriL 2020-0 Yes [id number] 2.5mg Take 1 Univers 2.5 mg 9-16 tablet by ity of tablet 00:00: mouth [place] 00 daily. Medical Branch levothyroxi 2020-0 Yes [id number] 50ug Take 1 Univers ne 50 mcg 9-16 tablet by ity o f tablet 00:00: mouth [place] 00 every Medical morning. Branch tamsulosin 2020-0 Yes [id number] .4mg Take 1 Univers 0.4 mg 24 9-16 capsule by ity of hr capsule 00:00: mouth [place] 00 daily. Medical Branch venlafaxine 2020-0 Yes [id number] 75mg Take 1 Univers 75 mg 9-16 tablet by ity of tablet 00:00: mouth 2 [place] 00 (two) Medical times Branch daily. glipiZIDE 5 2020-0 Yes [id number] 5mg Take 1 Univers mg tablet 9-16 tablet by ity o f 00:00: mouth 2 [place] 00 (two) Medical times Branch daily before breakfast and dinner. metoprolol 2020-0 Yes [id number] 25mg Take 1 Univers succinate 9-16 tablet by ity o f XL 25 mg 24 00:00: mouth 2 [place] tablet 00 (two) Medical times Branch daily. furosemide 2020-0 Yes [id number] 40mg Take 1 Univers 40 mg 9-16 tablet by ity of tablet 00:00: mouth [place] 00 every Medical morning Branch and evening. atorvastati 2020-0 Yes [id number] 40mg Take 1 U nivers n 40 mg 9-16 tablet by ity of tablet 00:00: mouth at [place] 00 bedtime. Medical Branch apixaban 5 2020-0 Yes [id number] 5mg Take 1 Unive rs mg tablet 9-16 tablet by ity o f 00:00: mouth 2 00 (two) Medical times Branch daily. Indication s: atrial fibrillati on clopidogreL 2020-0 Yes [id number] 75mg Take 1 Univers 75 mg 9-16 tablet by ity of tablet 00:00: mouth [place] 00 daily. Medical Branch nitroglycer 2020-[id number] 1 Univers in 0.4 mg 9-16 tablet ity of sublingual 00:00: under the [place] tablet 00 tongue Medical every 5 Branch (five) minutes as needed for Chest pain. pantoprazol 2020-0 Yes [id number] 20mg Take 1 U nivers e 20 mg EC 9-16 tablet by ity of tablet 00:00: mouth [place] 00 daily. Medical Branch lisinopriL 2020-0 Yes [id number] 2.5mg Take 1 Univers 2.5 mg 9-16 tablet by ity of tablet 00:00: mouth [place] 00 daily. Medical Branch levothyroxi 2020-0 Yes [id number] 50ug Take 1 Univers ne 50 mcg 9-16 tablet by ity o f tablet 00:00: mouth [place] 00 every Medical morning. Branch tamsulosin 2020-0 Yes [id number] .4mg Take 1 Univers 0.4 mg 24 9-16 capsule by ity of hr capsule 00:00: mouth [place] 00 daily. Medical Branch venlafaxine 2020-0 Yes [id number] 75mg Take 1 [facility] 75 mg 9-16 tablet by ity of tablet 00:00: mouth 2 [place] 00 (two) Medical times Branch daily. glipiZIDE 5 2020-0 Yes [id number] 5mg Take 1 Univers mg tablet 9-16 tablet by ity o f 00:00: mouth 2 [place] 00 (two) Medical times Branch daily before breakfast and dinner. metoprolol 2020-0 Yes [id number] 25mg Take 1 Univers succinate 9-16 tablet by ity o f XL 25 mg 24 00:00: mouth 2 [place] tablet 00 (two) Medical times Branch daily. furosemide 2020-0 Yes [id number] 40mg Take 1 Univers 40 mg 9-16 tablet by ity of tablet 00:00: mouth [place] 00 every Medical morning Branch and evening. atorvastati 2020-0 Yes [id number] 40mg Take 1 U nivers n 40 mg 9-16 tablet by [facility] tablet 00:00: mouth at [place] 00 bedtime. [facility] apixaban 5 2020-0 Yes [id number] 5mg Take 1 [facility] mg tablet 9-16 tablet by [facility] f 00:00: mouth 2 [place] 00 (two) Medical times Branch daily. Indication s: atrial fibrillati on clopidogreL 2020-0 Yes [id number] 75mg Take 1 [facility] 75 mg 9-16 tablet by [facility] tablet 00:00: mouth [place] 00 daily. [facility] nitroglycer 2020-[id number] 1 [facility] in 0.4 mg 9-16 tablet [facility] sublingual 00:00: under the [place] tablet 00 tongue Medical every 5 Branch (five) minutes as needed for Chest pain. pantoprazol 2020-0 Yes [id number] 20mg Take 1 [facility] e 20 mg EC 9-16 tablet by [facility] tablet 00:00: mouth [place] 00 daily. [facility] lisinopriL 2019-0 Yes [id number] 2.5mg Take 1 [facility] 2.5 mg 9-16 tablet by [facility] tablet 00:00: mouth [place] 00 daily. [facility] levothyroxi 2020-0 Yes [id number] 50ug Take 1 [facility] ne 50 mcg 9-16 tablet by [facility] f tablet 00:00: mouth [place] 00 every Medical morning. Branch tamsulosin 2019-0 Yes [id number] .4mg Take 1 [facility] 0.4 mg 24 9-16 capsule by [facility] hr capsule 00:00: mouth [place] 00 daily. [facility] venlafaxine 2019-0 Yes [id number] 75mg Take 1 [facility] 75 mg 9-16 tablet by [facility] tablet 00:00: mouth 2 [place] 00 (two) Medical times Branch daily. glipiZIDE 5 2020-0 Yes [id number] 5mg Take 1 [facility] mg tablet 9-16 tablet by [facility] o f 00:00: mouth 2 [place] 00 (two) Medical times Branch daily before breakfast and dinner. metoprolol 2020-0 Yes [id number] 25mg Take 1 [facility] succinate 9-16 tablet by [facility] XL 25 mg 24 00:00: mouth 2 [place] [facility] 00 (two) Medical times [facility] daily. furosemide 2020-0 Yes [id number] 40mg Take 1 [facility] 40 mg 9-16 tablet by [facility] tablet 00:00: mouth [place] 00 every Medical morning Branch and evening. atorvastati 2020-0 Yes [id number] 40mg Take 1 [facility] n 40 mg 9-16 tablet by [facility] tablet 00:00: mouth at [place] 00 bedtime. [facility] apixaban 5 2020-0 Yes [id number] 5mg Take 1 [facility] mg tablet 9-16 tablet by [facility] f 00:00: mouth 2 [place] 00 (two) Medical times Branch daily. Indication s: atrial fibrillati on clopidogreL 2020-0 Yes [id number] 75mg Take 1 [facility] 75 mg 9-16 tablet by [facility] tablet 00:00: mouth [place] 00 daily. [facility] nitroglycer 2020-[id number] 1 [facility] in 0.4 mg 9-16 tablet [facility] sublingual 00:00: under the [place] tablet 00 tongue Medical every 5 Branch (five) minutes as needed for Chest pain. pantoprazol 2020-0 Yes [id number] 20mg Take 1 [facility] 20 mg EC 9-16 tablet by [facility] tablet 00:00: mouth [place] 00 daily. [facility] lisinopriL 2020-0 Yes [id number] 2.5mg Take 1 [facility] 2.5 mg 9-16 tablet by [facility] tablet 00:00: mouth [place] 00 daily. [facility] levothyroxi 2020-0 Yes [id number] 50ug Take 1 [facility] ne 50 mcg 9-16 tablet by [facility] f tablet 00:00: mouth [place] 00 every Medical morning. Branch tamsulosin 2019-0 Yes [id number] .4mg Take 1 [facility] 0.4 mg 24 9-16 capsule by [facility] hr capsule 00:00: mouth [place] 00 daily. [facility] venlafaxine 2020-0 Yes [id number] 75mg Take 1 [facility] 75 mg 9-16 tablet by [facility] tablet 00:00: mouth 2 [place] 00 (two) Medical times Branch daily. glipiZIDE 5 2020-0 Yes [id number] 5mg Take 1 [facility] mg tablet 9-16 tablet by [facility] f 00:00: mouth 2 [place] 00 (two) Medical times Branch daily before breakfast and dinner. metoprolol 2020-0 Yes [id number] 25mg Take 1 [facility] succinate 9-16 tablet by [facility] f XL 25 mg 24 00:00: mouth 2 [place] [facility] tablet 00 (two) Medical times Branch daily. furosemide 2020-0 Yes [id number] 40mg Take 1 [facility] 40 mg 9-16 tablet by [facility] tablet 00:00: mouth [place] 00 every Medical morning Branch and evening. atorvastati 2020-0 Yes [id number] 40mg Take 1 [facility] 40 mg 9-16 tablet by [facility] tablet 00:00: mouth at [place] 00 bedtime. [facility] apixaban 5 2019-0 Yes [id number] 5mg Take 1 [facility] mg tablet 9-16 tablet by [facility] f 00:00: mouth 2 [place] 00 (two) Medical times Branch daily. Indication s: atrial fibrillati on clopidogreL 2020-0 Yes [id number] 75mg Take 1 [facility] 75 mg 9-16 tablet by [facility] tablet 00:00: mouth [place] 00 daily. [facility] nitroglycer 2019-[id number] 1 [facility] in 0.4 mg 9-16 tablet [facility] sublingual 00:00: under the [place] tablet 00 tongue Medical every 5 Branch (five) minutes as needed for Chest pain. pantoprazol 2019-0 Yes [id number] 20mg Take 1 [facility] 20 mg EC 9-16 tablet by [facility] tablet 00:00: mouth [place] 00 daily. [facility] lisinopriL 2019-0 Yes [id number] 2.5mg Take 1 [facility] 2.5 mg 9-16 tablet by [facility] tablet 00:00: mouth [place] 00 daily. [facility] levothyroxi 2019-0 Yes [id number] 50ug Take 1 [facility] ne 50 mcg 9-16 tablet by [facility] f tablet 00:00: mouth [place] 00 every Medical morning. Branch tamsulosin 2019-0 Yes [id number] .4mg Take 1 [facility] 0.4 mg 24 9-16 capsule by [facility] hr capsule 00:00: mouth [place] 00 daily. [facility] venlafaxine 2020-0 Yes [id number] 75mg Take 1 [facility] 75 mg 9-16 tablet by [facility] tablet 00:00: mouth 2 [place] 00 (two) Medical times Branch daily. glipiZIDE 5 2020-0 Yes [id number] 5mg Take 1 [facility] mg tablet 9-16 tablet by [facility] o f 00:00: mouth 2 [place] 00 (two) Medical times Branch daily before breakfast and dinner. metoprolol 2020-0 Yes [id number] 25mg Take 1 [facility] succinate 9-16 tablet by [facility] XL 25 mg 24 00:00: mouth 2 [place] [facility] [place] 00 (two) Medical times Branch daily. furosemide 2020-0 Yes [id number] 40mg Take 1 [facility] 40 mg 9-16 tablet by [facility] tablet 00:00: mouth [place] 00 every Medical morning Branch and evening. atorvastati 2020-0 Yes [id number] 40mg Take 1 [facility] 40 mg 9-16 tablet by [facility] tablet 00:00: mouth at [place] 00 bedtime. [facility] apixaban 5 2020-0 Yes [id number] 5mg Take 1 [facility] mg tablet 9-16 tablet by [facility] f 00:00: mouth 2 [place] 00 (two) Medical times Branch daily. Indication s: atrial fibrillati on clopidogreL 2019-0 Yes [id number] 75mg Take 1 [facility] 75 mg 9-16 tablet by [facility] tablet 00:00: mouth [place] 00 daily. [facility] nitroglycer 2019-[id number] 1 [facility] in 0.4 mg 9-16 tablet [facility] sublingual 00:00: under the [place] tablet 00 tongue Medical every 5 Branch (five) minutes as needed for Chest pain. pantoprazol 2019-0 Yes [id number] 20mg Take 1 [facility] 20 mg EC 9-16 tablet by [facility] tablet 00:00: mouth [place] 00 daily. [facility] lisinopriL 2019-0 Yes [id number] 2.5mg Take 1 [facility] 2.5 mg 9-16 tablet by [facility] tablet 00:00: mouth [place] 00 daily. [facility] levothyroxi 2020-0 Yes [id number] 50ug Take 1 [facility] ne 50 mcg 9-16 tablet by [facility] f tablet 00:00: mouth [place] 00 every Medical morning. Branch tamsulosin 2020-0 Yes [id number] .4mg Take 1 [facility] 0.4 mg 24 9-16 capsule by [facility] hr capsule 00:00: mouth [place] 00 daily. [facility] venlafaxine 2020-0 Yes [id number] 75mg Take 1 [facility] 75 mg 9-16 tablet by [facility] tablet 00:00: mouth 2 [place] 00 (two) Medical times Branch daily. glipiZIDE 5 2020-0 Yes [id number] 5mg Take 1 [facility] mg tablet 9-16 tablet by [facility] f 00:00: mouth 2 (two) Medical times Branch daily before breakfast and dinner. metoprolol 2020-0 Yes [id number] 25mg Take 1 [facility] succinate 9-16 tablet by [facility] XL 25 mg 24 00:00: mouth 2 [place] 00 (two) Medical times Branch daily. furosemide 2020-0 Yes [id number] 40mg Take 1 [facility] 40 mg 9-16 tablet by [facility] tablet 00:00: mouth [place] 00 every Medical morning Branch and evening. atorvastati 2020-0 Yes [id number] 40mg Take 1 [facility] 40 mg 9-16 tablet by [facility] tablet 00:00: mouth at [place] 00 bedtime. [facility] apixaban 5 2020-0 Yes [id number] 5mg Take 1 [facility] mg tablet 9-16 tablet by [facility] f 00:00: mouth 2 (two) Medical times Branch daily. Indication s: atrial fibrillati on clopidogreL 2020-0 Yes [id number] 75mg Take 1 [facility] 75 mg 9-16 tablet by [facility] tablet 00:00: mouth [place] 00 daily. Medical [facility] nitroglycer 2020-[id number] 1 [facility] in 0.4 mg 9-16 tablet [facility] sublingual 00:00: under the [place] tablet 00 tongue Medical every 5 Branch (five) minutes as needed for Chest pain. pantoprazol 2020-0 Yes [id number] 20mg Take 1 [facility] 20 mg EC 9-16 tablet by [facility] tablet 00:00: mouth [place] 00 daily. [facility] lisinopriL 2020-0 Yes [id number] 2.5mg Take 1 [facility] 2.5 mg 9-16 tablet by [facility] tablet 00:00: mouth [place] 00 daily. [facility] levothyroxi 2020-0 Yes [id number] 50ug Take 1 [facility] ne 50 mcg 9-16 tablet by [facility] f tablet 00:00: mouth [place] 00 every Medical morning. Branch tamsulosin 2020-0 Yes [id number] .4mg Take 1 [facility] 0.4 mg 24 9-16 capsule by [facility] hr capsule 00:00: mouth [place] 00 daily. [facility] venlafaxine 2020-0 Yes [id number] 75mg Take 1 [facility] 75 mg 9-16 tablet by [facility] tablet 00:00: mouth 2 00 (two) Medical times Branch daily. glipiZIDE 5 2020-0 Yes [id number] 5mg Take 1 [facility] mg tablet 9-16 tablet by [facility] f 00:00: mouth 2 (two) Medical times Branch daily before breakfast and dinner. metoprolol 2020-0 Yes [id number] 25mg Take 1 [facility] succinate 9-16 tablet by [facility] XL 25 mg 24 00:00: mouth 2 [place] 00 (two) Medical times Branch daily. furosemide 2020-0 Yes [id number] 40mg Take 1 [facility] 40 mg 9-16 tablet by [facility] tablet 00:00: mouth [place] 00 every Medical morning Branch and evening. atorvastati 2020-0 Yes [id number] 40mg Take 1 [facility] 40 mg 9-16 tablet by [facility] tablet 00:00: mouth at [place] 00 bedtime. [facility] apixaban 5 2019-0 Yes [id number] 5mg Take 1 [facility] mg tablet 9-16 tablet by [facility] o f 00:00: mouth 2 (two) Medical times Branch daily. Indication s: atrial fibrillati on clopidogreL 2020-0 Yes [id number] 75mg Take 1 [facility] 75 mg 9-16 tablet by [facility] tablet 00:00: mouth [place] 00 daily. [facility] nitroglycer 2020-[id number] 1 [facility] in 0.4 mg 9-16 tablet [facility] sublingual 00:00: under the [place] tablet 00 tongue Medical every 5 Branch (five) minutes as needed for Chest pain. pantoprazol 2020-0 Yes [id number] 20mg Take 1 [facility] 20 mg EC 9-16 tablet by [facility] tablet 00:00: mouth [place] 00 daily. [facility] lisinopriL 2020-0 Yes [id number] 2.5mg Take 1 [facility] 2.5 mg 9-16 tablet by [facility] tablet 00:00: mouth [place] 00 daily. [facility] levothyroxi 2020-0 Yes [id number] 50ug Take 1 [facility] ne 50 mcg 9-16 tablet by [facility] o f tablet 00:00: mouth [place] 00 every Medical morning. Branch tamsulosin 2020-0 Yes [id number] .4mg Take 1 [facility] 0.4 mg 24 9-16 capsule by [facility] hr capsule 00:00: mouth [place] 00 daily. [facility] venlafaxine 2020-0 Yes [id number] 75mg Take 1 [facility] 75 mg 9-16 tablet by [facility] tablet 00:00: mouth 2 [place] 00 (two) Medical times Branch daily. glipiZIDE 5 2020-0 Yes [id number] 5mg Take 1 [facility] mg tablet 9-16 tablet by [facility] o f 00:00: mouth 2 [place] 00 (two) Medical times Branch daily before breakfast and dinner. metoprolol 2020-0 Yes [id number] 25mg Take 1 [facility] succinate 9-16 tablet by [facility] f XL 25 mg 24 00:00: mouth 2 [place] [facility] [place] 00 (two) Medical times Branch daily. furosemide 2020-0 Yes [id number] 40mg Take 1 [facility] 40 mg 9-16 tablet by [facility] tablet 00:00: mouth [place] 00 every Medical morning Branch and evening. atorvastati 2020-0 Yes [id number] 40mg Take 1 [facility] n 40 mg 9-16 tablet by [facility] tablet 00:00: mouth at [place] 00 bedtime. Medical [facility] apixaban 5 2019-0 Yes [id number] 5mg Take 1 [facility] mg tablet 9-16 tablet by [facility] o f 00:00: mouth 2 [place] 00 (two) Medical times Branch daily. Indication s: atrial fibrillati on clopidogreL 2019-0 Yes [id number] 75mg Take 1 [facility] 75 mg 9-16 tablet by [facility] tablet 00:00: mouth [place] 00 daily. Medical [facility] nitroglycer 2019-[id number] 1 [facility] in 0.4 mg 9-16 tablet [facility] sublingual 00:00: under the [place] tablet 00 tongue Medical every 5 Branch (five) minutes as needed for Chest pain. pantoprazol 2020-0 Yes [id number] 20mg Take 1 [facility] 20 mg EC 9-16 tablet by [facility] tablet 00:00: mouth [place] 00 daily. [facility] lisinopriL 2019-0 Yes [id number] 2.5mg Take 1 [facility] 2.5 mg 9-16 tablet by [facility] tablet 00:00: mouth [place] 00 daily. [facility] levothyroxi 2020-0 Yes [id number] 50ug Take 1 [facility] ne 50 mcg 9-16 tablet by [facility] o f tablet 00:00: mouth [place] 00 every Medical morning. Branch tamsulosin 2020-0 Yes [id number] .4mg Take 1 [facility] 0.4 mg 24 9-16 capsule by [facility] hr capsule 00:00: mouth [place] 00 daily. [facility] venlafaxine 2020-0 Yes [id number] 75mg Take 1 [facility] 75 mg 9-16 tablet by [facility] tablet 00:00: mouth 2 (two) Medical times Branch daily. glipiZIDE 5 2020-0 Yes [id number] 5mg Take 1 [facility] mg tablet 9-16 tablet by [facility] o f 00:00: mouth 2 (two) Medical times Branch daily before breakfast and dinner. metoprolol 2020-0 Yes [id number] 25mg Take 1 [facility] succinate 9-16 tablet by [facility] f XL 25 mg 24 00:00: mouth 2 [place] [facility] 00 (two) Medical times Branch daily. furosemide 2020-0 Yes [id number] 40mg Take 1 [facility] 40 mg 9-16 tablet by [facility] tablet 00:00: mouth [place] 00 every Medical morning Branch and evening. atorvastati 2019-0 Yes [id number] 40mg Take 1 [facility] n 40 mg 9-16 tablet by [facility] tablet 00:00: mouth at [place] 00 bedtime. [facility] apixaban 5 2019-0 Yes [id number] 5mg Take 1 [facility] mg tablet 9-16 tablet by [facility] o f 00:00: mouth 2 (two) Medical times Branch daily. Indication s: atrial fibrillati on clopidogreL 2019-0 Yes [id number] 75mg Take 1 [facility] 75 mg 9-16 tablet by [facility] tablet 00:00: mouth [place] 00 daily. Medical [facility] nitroglycer 2019-[id number] 1 [facility] in 0.4 mg 9-16 tablet [facility] sublingual 00:00: under the [place] tablet 00 tongue Medical every 5 Branch (five) minutes as needed for Chest pain. pantoprazol 2020-0 Yes [id number] 20mg Take 1 [facility] 20 mg EC 9-16 tablet by [facility] tablet 00:00: mouth [place] 00 daily. Medical [facility] lisinopriL 2019-0 Yes [id number] 2.5mg Take 1 [facility] 2.5 mg 9-16 tablet by [facility] tablet 00:00: mouth [place] 00 daily. [facility] levothyroxi 2020-0 Yes [id number] 50ug Take 1 [facility] ne 50 mcg 9-16 tablet by [facility] o f tablet 00:00: mouth [place] 00 every Medical morning. Branch tamsulosin 2020-0 Yes [id number] .4mg Take 1 [facility] 0.4 mg 24 9-16 capsule by [facility] hr capsule 00:00: mouth [place] 00 daily. [facility] venlafaxine 2020-0 Yes [id number] 75mg Take 1 [facility] 75 mg 9-16 tablet by [facility] tablet 00:00: mouth 2 [place] 00 (two) Medical times Branch daily. glipiZIDE 5 2020-0 Yes [id number] 5mg Take 1 [facility] mg tablet 9-16 tablet by [facility] o f 00:00: mouth 2 [place] 00 (two) Medical times Branch daily before breakfast and dinner. metoprolol 2020-0 Yes [id number] 25mg Take 1 [facility] succinate 9-16 tablet by [facility] o f XL 25 mg 24 00:00: mouth 2 [place] [facility] [place] 00 (two) Medical times Branch daily. furosemide 2020-0 Yes [id number] 40mg Take 1 [facility] 40 mg 9-16 tablet by [facility] tablet 00:00: mouth [place] 00 every Medical morning Branch and evening. atorvastati 2020-0 Yes [id number] 40mg Take 1 [facility] 40 mg 9-16 tablet by [facility] tablet 00:00: mouth at [place] 00 bedtime. Medical [facility] clopidogreL 2020-0 Yes [id number] 75mg Take 1 [facility] 75 mg 9-16 tablet by [facility] tablet 00:00: mouth [place] 00 daily. Medical [facility] nitroglycer 2020-[id number] 1 [facility] in 0.4 mg 9-16 tablet [facility] of sublingual 00:00: under the [place] tablet 00 tongue Medical every 5 Branch (five) minutes as needed for Chest pain. levothyroxi 2020-0 Yes [id number] 50ug Take 1 [facility] ne 50 mcg 9-16 tablet by [facility] o f tablet 00:00: mouth [place] 00 every Medical morning. Branch tamsulosin 2020-0 Yes [id number] .4mg Take 1 [facility] 0.4 mg 24 9-16 capsule by [facility] hr capsule 00:00: mouth [place] 00 daily. Medical Branch venlafaxine 2020-0 Yes [id number] 75mg Take 1 [facility] 75 mg 9-16 tablet by [facility] tablet 00:00: mouth 2 [place] 00 (two) Medical times Branch daily. glipiZIDE 5 2020-0 Yes [id number] 5mg Take 1 [facility] mg tablet 9-16 tablet by [facility] o f 00:00: mouth (two) Medical times Branch daily before breakfast and dinner. furosemide 2020-0 Yes [id number] 40mg Take 1 [facility] 40 mg 9-16 tablet by [facility] tablet 00:00: mouth 00 every Medical morning Branch and evening. clopidogreL 2020-0 Yes [id number] 75mg Take 1 [facility] 75 mg 9-16 tablet by [facility] tablet 00:00: mouth 00 daily. Medical [facility] nitroglycer 2020-[id number] 1 [facility] in 0.4 mg 9-16 tablet [facility] of sublingual 00:00: under the [place] tablet 00 tongue Medical every 5 Branch (five) minutes as needed for Chest pain. levothyroxi 2020-0 Yes [id number] 50ug Take 1 [facility] ne 50 mcg 9-16 tablet by [facility] o f tablet 00:00: mouth 00 every Medical morning. Branch tamsulosin 2020-0 Yes [id number] .4mg Take 1 [facility] 0.4 mg 24 9-16 capsule by [facility] hr capsule 00:00: mouth 00 daily. Medical [facility] venlafaxine 2020-0 Yes [id number] 75mg Take 1 [facility] 75 mg 9-16 tablet by [facility] tablet 00:00: mouth (two) Medical times Branch daily. glipiZIDE 5 2020-0 Yes [id number] 5mg Take 1 [facility] mg tablet 9-16 tablet by [facility] o f 00:00: mouth (two) Medical times Branch daily before breakfast and dinner. furosemide 2020-0 Yes [id number] 40mg Take 1 [facility] 40 mg 9-16 tablet by [facility] tablet 00:00: mouth 00 every Medical morning Branch and evening. clopidogreL 2020-0 Yes [id number] 75mg Take 1 [facility] 75 mg 9-16 tablet by [facility] tablet 00:00: mouth [place] 00 daily. Medical [facility] nitroglycer 2020-[id number] 1 [facility] in 0.4 mg 9-16 tablet [facility] of sublingual 00:00: under the [place] tablet 00 tongue Medical every 5 Branch (five) minutes as needed for Chest pain. levothyroxi 2020-0 Yes [id number] 50ug Take 1 [facility] ne 50 mcg 9-16 tablet by [facility] o f tablet 00:00: mouth [place] 00 every Medical morning. Branch tamsulosin 2020-0 Yes [id number] .4mg Take 1 [facility] 0.4 mg 24 9-16 capsule by [facility] hr capsule 00:00: mouth [place] 00 daily. [facility] venlafaxine 2020-0 Yes [id number] 75mg Take 1 [facility] 75 mg 9-16 tablet by [facility] tablet 00:00: mouth 2 (two) Medical times Branch daily. glipiZIDE 5 2020-0 Yes [id number] 5mg Take 1 [facility] mg tablet 9-16 tablet by [facility] o f 00:00: mouth 2 (two) Medical times Branch daily before breakfast and dinner. furosemide 2020-0 Yes [id number] 40mg Take 1 [facility] 40 mg 9-16 tablet by [facility] tablet 00:00: mouth [place] 00 every Medical morning Branch and evening. clopidogreL 2020-0 Yes [id number] 75mg Take 1 [facility] 75 mg 9-16 tablet by [facility] tablet 00:00: mouth [place] 00 daily. Medical [facility] nitroglycer 2020-[id number] 1 [facility] in 0.4 mg 9-16 tablet [facility] of sublingual 00:00: under the [place] tablet 00 tongue Medical every 5 Branch (five) minutes as needed for Chest pain. levothyroxi 2020-0 Yes [id number] 50ug Take 1 [facility] ne 50 mcg 9-16 tablet by [facility] o f tablet 00:00: mouth [place] 00 every Medical morning. Branch tamsulosin 2020-0 Yes [id number] .4mg Take 1 [facility] 0.4 mg 24 9-16 capsule by [facility] hr capsule 00:00: mouth [place] 00 daily. Medical [facility] venlafaxine 2020-0 Yes [id number] 75mg Take 1 [facility] 75 mg 9-16 tablet by [facility] tablet 00:00: mouth (two) Medical times Branch daily. glipiZIDE 5 2020-0 Yes [id number] 5mg Take 1 [facility] mg tablet 9-16 tablet by [facility] o f 00:00: mouth 2 (two) Medical times Branch daily before breakfast and dinner. furosemide 2020-0 Yes [id number] 40mg Take 1 [facility] 40 mg 9-16 tablet by [facility] tablet 00:00: mouth [place] 00 every Medical morning Branch and evening. clopidogreL 2020-0 Yes [id number] 75mg Take 1 [facility] 75 mg 9-16 tablet by [facility] tablet 00:00: mouth [place] 00 daily. Medical [facility] nitroglycer 2020-[id number] 1 [facility] in 0.4 mg 9-16 tablet [facility] of sublingual 00:00: under the [place] tablet 00 tongue Medical every 5 Branch (five) minutes as needed for Chest pain. levothyroxi 2020-0 Yes [id number] 50ug Take 1 [facility] ne 50 mcg 9-16 tablet by [facility] o f tablet 00:00: mouth [place] 00 every Medical morning. Branch tamsulosin 2020-0 Yes [id number] .4mg Take 1 [facility] 0.4 mg 24 9-16 capsule by [facility] hr capsule 00:00: mouth [place] 00 daily. Medical [facility] venlafaxine 2020-0 Yes [id number] 75mg Take 1 [facility] 75 mg 9-16 tablet by [facility] tablet 00:00: mouth 2 [place] 00 (two) Medical times Branch daily. glipiZIDE 5 2020-0 Yes [id number] 5mg Take 1 [facility] mg tablet 9-16 tablet by [facility] o f 00:00: mouth 2 [place] 00 (two) Medical times Branch daily before breakfast and dinner. furosemide 2020-0 Yes [id number] 40mg Take 1 [facility] 40 mg 9-16 tablet by [facility] tablet 00:00: mouth [place] 00 every Medical morning Branch and evening. nitroglycer 2020-[id number] 1 [facility] in 0.4 mg 9-16 tablet [facility] of sublingual 00:00: under the [place] tablet 00 tongue Medical every 5 Branch (five) minutes as needed for Chest pain. levothyroxi 2020-0 Yes [id number] 50ug Take 1 [facility] ne 50 mcg 9-16 tablet by [facility] o f tablet 00:00: mouth [place] 00 every Medical morning. Branch tamsulosin 2020-0 Yes [id number] .4mg Take 1 [facility] 0.4 mg 24 9-16 capsule by [facility] of hr capsule 00:00: mouth [place] 00 daily. Medical [facility] venlafaxine 2020-0 Yes [id number] 75mg Take 1 [facility] 75 mg 9-16 tablet by [facility] tablet 00:00: mouth (two) Medical times Branch daily. glipiZIDE 5 2020-0 Yes [id number] 5mg Take 1 [facility] mg tablet 9-16 tablet by [facility] o f 00:00: mouth (two) Medical times Branch daily before breakfast and dinner. furosemide 2020-0 Yes [id number] 40mg Take 1 [facility] 40 mg 9-16 tablet by [facility] tablet 00:00: mouth [place] 00 every Medical morning Branch and evening. nitroglycer 2020-[id number] 1 [facility] in 0.4 mg 9-16 tablet [facility] of sublingual 00:00: under the [place] tablet 00 tongue Medical every 5 Branch (five) minutes as needed for Chest pain. levothyroxi 2020-0 Yes [id number] 50ug Take 1 [facility] ne 50 mcg 9-16 tablet by [facility] o f tablet 00:00: mouth 00 every Medical morning. Branch tamsulosin 2020-0 Yes [id number] .4mg Take 1 [facility] 0.4 mg 24 9-16 capsule by [facility] hr capsule 00:00: mouth 00 daily. Medical Branch venlafaxine 2020-0 Yes [id number] 75mg Take 1 [facility] 75 mg 9-16 tablet by [facility] tablet 00:00: mouth (two) Medical times Branch daily. glipiZIDE 5 2020-0 Yes [id number] 5mg Take 1 [facility] mg tablet 9-16 tablet by [facility] o f 00:00: mouth (two) Medical times Branch daily before breakfast and dinner. furosemide 2020-0 Yes [id number] 40mg Take 1 [facility] 40 mg 9-16 tablet by [facility] of tablet 00:00: mouth [place] 00 every Medical morning Branch and evening. levothyroxi 2020-0 Yes [id number] 50ug Take 1 [facility] ne 50 mcg 9-16 tablet by [facility] o f tablet 00:00: mouth [place] 00 every Medical morning. Branch tamsulosin 2020-0 Yes [id number] .4mg Take 1 [facility] 0.4 mg 24 9-16 capsule by [facility] of hr capsule 00:00: mouth [place] 00 daily. Medical Branch venlafaxine 2020-0 Yes [id number] 75mg Take 1 [facility] 75 mg 9-16 tablet by [facility] of tablet 00:00: mouth 2 (two) Medical times Branch daily. glipiZIDE 5 2020-0 Yes [id number] 5mg Take 1 [facility] mg tablet 9-16 tablet by [facility] o f 00:00: mouth (two) Medical times Branch daily before breakfast and dinner. furosemide 2020-0 Yes [id number] 40mg Take 1 [facility] 40 mg 9-16 tablet by [facility] of tablet 00:00: mouth [place] 00 every Medical morning Branch and evening. levothyroxi 2020-0 Yes [id number] 50ug Take 1 [facility] ne 50 mcg 9-16 tablet by [facility] o f tablet 00:00: mouth [place] 00 every Medical morning. Branch venlafaxine 2020-0 Yes [id number] 75mg Take 1 [facility] 75 mg 9-16 tablet by [facility] of tablet 00:00: mouth (two) Medical times Branch daily. glipiZIDE 5 2020-0 Yes [id number] 5mg Take 1 [facility] mg tablet 9-16 tablet by [facility] o f 00:00: mouth (two) Medical times Branch daily before breakfast and dinner. furosemide 2020-0 Yes [id number] 40mg Take 1 [facility] 40 mg 9-16 tablet by [facility] tablet 00:00: mouth 00 every Medical morning Branch and evening. levothyroxi 2020-0 Yes [id number] 50ug Take 1 [facility] ne 50 mcg 9-16 tablet by [facility] o f tablet 00:00: mouth [place] 00 every Medical morning. Branch venlafaxine 2020-0 Yes [id number] 75mg Take 1 [facility] 75 mg 9-16 tablet by [facility] of tablet 00:00: mouth (two) Medical times Branch daily. glipiZIDE 5 2020-0 Yes [id number] 5mg Take 1 [facility] mg tablet 9-16 tablet by [facility] o f 00:00: mouth (two) Medical times Branch daily before breakfast and dinner. furosemide 2020-0 Yes [id number] 40mg Take 1 [facility] 40 mg 9-16 tablet by [facility] of tablet 00:00: mouth [place] 00 every Medical morning Branch and evening. levothyroxi 2020-0 Yes [id number] 50ug Take 1 [facility] ne 50 mcg 9-16 tablet by [facility] o f tablet 00:00: mouth [place] 00 every Medical morning. Branch venlafaxine 2020-0 Yes [id number] 75mg Take 1 [facility] 75 mg 9-16 tablet by [facility] of tablet 00:00: mouth (two) Medical times Branch daily. glipiZIDE 5 2020-0 Yes [id number] 5mg Take 1 [facility] mg tablet 9-16 tablet by ity o f 00:00: mouth (two) Medical times Branch daily before breakfast and dinner. furosemide 2020-0 Yes [id number] 40mg Take 1 [facility] 40 mg 9-16 tablet by ity of tablet 00:00: mouth 00 every Medical morning Branch and evening. levothyroxi 2020-0 Yes [id number] 50ug Take 1 [facility] ne 50 mcg 9-16 tablet by ity o f tablet 00:00: mouth 00 every Medical morning. Branch venlafaxine 2020-0 Yes [id number] 75mg Take 1 [facility] 75 mg 9-16 tablet by ity of tablet 00:00: mouth (two) Medical times Branch daily. glipiZIDE 5 2020-0 Yes [id number] 5mg Take 1 [facility] mg tablet 9-16 tablet by ity o f 00:00: mouth (two) Medical times Branch daily before breakfast and dinner. furosemide 2020-0 Yes [id number] 40mg Take 1 [facility] 40 mg 9-16 tablet by ity of tablet 00:00: mouth 00 every Medical morning Branch and evening. levothyroxi 2020-0 Yes [id number] 50ug Take 1 [facility] ne 50 mcg 9-16 tablet by ity o f tablet 00:00: mouth 00 every Medical morning. Branch venlafaxine 2020-0 Yes [id number] 75mg Take 1 [facility] 75 mg 9-16 tablet by ity of tablet 00:00: mouth (two) Medical times Branch daily. glipiZIDE 5 2020-0 Yes [id number] 5mg Take 1 [facility] mg tablet 9-16 tablet by ity o f 00:00: mouth (two) Medical times Branch daily before breakfast and dinner. furosemide 2020-0 Yes [id number] 40mg Take 1 [facility] 40 mg 9-16 tablet by ity of tablet 00:00: mouth [place] 00 every Medical morning Branch and evening. levothyroxi 2020-0 Yes [id number] 50ug Take 1 [facility] ne 50 mcg 9-16 tablet by ity o f tablet 00:00: mouth [place] 00 every Medical morning. Branch venlafaxine 2020-0 Yes [id number] 75mg Take 1 [facility] 75 mg 9-16 tablet by ity of tablet 00:00: mouth 2 [place] 00 (two) Medical times Branch daily. glipiZIDE 5 2019-0 Yes [id number] 5mg Take 1 [facility] mg tablet 9-16 tablet by ity o f 00:00: mouth 2 [place] 00 (two) Medical times Branch daily before breakfast and dinner. furosemide 2019-0 Yes [id number] 40mg Take 1 [facility] 40 mg 9-16 tablet by ity of tablet 00:00: mouth [place] 00 every Medical morning Branch and evening. levothyroxi 2019-2020- No [id number] 50ug Take 1 [facility] ne 50 mcg - 05-08 tablet by ity of tablet 00:00: 00:00 mouth [place] 00 :00 every Medical morning. Branch venlafaxine 2019-2020- No [id number] 75mg Take 1 [facility] 75 mg 9- 05-08 tablet by ity of tablet 00:00: 00:00 mouth 2 [place] 00 :00 (two) Medical times Branch daily. glipiZIDE 5 2019-2020- No [id number] 5mg Take 1 [facility] mg tablet - 05-08 tablet by ity of 00:00: 00:00 mouth 2 [place] 00 :00 (two) Medical times Branch daily before breakfast and dinner. furosemide 2019-2020- No [id number] 40mg Take 1 [facility] 40 mg 02-04 05-08 tablet by ity of tablet 00:00: 00:00 mouth [place] 00 :00 every Medical morning Branch and evening. tamsulosin 2019-2020- No [id number] .4mg Take 1 [facility] 0.4 mg 24 02-04- capsule by ity of hr capsule 00:00: 00:00 mouth [place] 00 :00 daily. Medical Branch tamsulosin 2019-2020- No [id number] .4mg Take 1 [facility] 0.4 mg 24 02-04- capsule by ity of hr capsule 00:00: 00:00 mouth [place] 00 :00 daily. Medical Branch tamsulosin 2019-2020- No [id number] .4mg Take 1 [facility] 0.4 mg 24 02-04 capsule by ity of hr capsule 00:00: 00:00 mouth [place] 00 :00 daily. Medical Branch tamsulosin 2020- No [id number] .4mg Take 1 [facility] 0.4 mg 24 02-04 capsule by ity of hr capsule 00:00: 00:00 mouth [place] 00 :00 daily. Medical Branch nitroglycer 2020- No [id number] .4mg Place 1 [facility] in 0.4 mg 02-04 tablet ity of sublingual 00:00: 00:00 under the [place] tablet 00 :00 tongue Medical every 5 Branch (five) minutes as needed for Chest pain. clopidogreL 2020- No [id number] 75mg Take 1 [facility] 75 mg 02-04 tablet by ity of tablet 00:00: 00:00 mouth [place] 00 :00 daily. Medical Branch lisinopriL 2020- No [id number] 2.5mg Take 1 [facility] 2.5 mg 02-04 tablet by ity of tablet 00:00: 00:00 mouth [place] 00 :00 daily. Medical Branch apixaban 5 2020- No [id number] 5mg Take 1 Univ ers mg tablet 02-04 tablet by ity of 00:00: 00:00 mouth 2 [place] 00 :00 (two) Medical times Branch daily. Indication s: atrial fibrillati on pantoprazol 2020- No [id number] 20mg Take 1 Univers e 20 mg EC 02-04 tablet by ity of tablet 00:00: 00:00 mouth [place] 00 :00 daily. Medical Branch metoprolol 2020- No [id number] 25mg Take 1 [facility] succinate 02-04 tablet by ity of XL 25 mg 24 00:00: 00:00 mouth 2 [place] hr tablet 00 :00 (two) Medical times Branch daily. atorvastati 2020- No [id number] 40mg Take 1 [facility] n 40 mg 02-04 tablet by ity of tablet 00:00: 00:00 mouth at [place] 00 :00 bedtime. Medical Branch atorvastati 2019- No [id number] 80mg Take 2 Univers n 40 mg 02-04 tablets by ity o f tablet 00:00: 00:00 mouth at [place] 00 :00 bedtime. Medical Branch sulfur 2020-0 2020- No 5mL 5 mL, Univers hexafluorid 02-03 Intravenou i ty of e microsphr 21:30: 20:12 s, ONCE, 1 [place] (LUMASON) 00 :00 dose, Tue Medic al injection 5 02/04/20 at Br anch mL 1630, Routine
body service team member approving Restricted medication : NINFA CASTILLO mupirocin 2020-0 Yes Univers (BACTROBAN 02-03 ity of OINT) 2 % 18:00: [place] skin 00 Medical ointment Branch morpHINE 2020-0 Yes 4mg 4 mg, Slow Uni vers injection 4 02-03 IV Push, ity of mg 17:32: Q4HPRN, [place] 30 Starting Medical [facility] 02/04/20 at 1232, Until Discontinu ed, STAT, Pain (scale 7-10) enoxaparin 2019-0 Yes 80mg 80 mg, Unive rs (LOVENOX) 02-03 Subcutaneo ity of injection 16:15: us, Q12H, [place] 80 mg 00 First dose Medical on [facility] 02/04/20 at 1115, Until Discontinu ed, Routine tamsulosin 2019-0 Yes .4mg 0.4 mg, Univ ers (FLOMAX) 02-03 Oral, ity of capsule 0.4 14:00: DAILY, [place] mg 00 First dose Medical on [facility] 02/04/20 at 0900, Until Discontinu ed, Routine lisinopriL 2020-0 Yes 2.5mg 2.5 mg, Uni vers (PRINIVIL,Z 02-03 Oral, ity of ESTRIL) 14:00: DAILY, [place] tablet 2.5 00 First dose Med ical mg on [facility] 02/04/20 at 0900, Until Discontinu ed, Routine levothyroxi 2020-0 Yes 50ug 50 mcg, Uni vers ne - Oral, ity of (SYNTHROID) 11:00: QAM-0600, [place] tablet 50 00 First dose Medi uriel mcg on [facility] 02/04/20 at 0600, Until Discontinu ed, Routine venlafaxine 2019-0 Yes 75mg 75 mg, Univ ers XR (EFFEXOR 02-03 Oral, BID, it y of XR) 24 hr 07:15: First dose [place] capsule 75 00 on [facility] mg 02/04/20 at Branch 0215, Until Discontinu ed, Routine aspirin 2019-0 2020- No 325mg 325 mg, Unive rs tablet 325 02-03 Oral, ity of mg 07:00: 06:26 ONCE, 1 [place] 00 :00 dose, [facility] 02/04/20 at Branch 0200, PIERRE glipiZIDE 2019-0 Yes 5mg 5 mg, Univers (GLUCOTROL) 02-03 Oral, ity of tablet 5 mg 06:00: BIDAC, [place] 00 First dose Medical on [facility] 02/04/20 at 0100, Until Discontinu ed, Routine metoprolol 2019-0 Yes 25mg 25 mg, Unive rs succinate 02-03 Oral, BID, ity of XL (TOPROL 06:00: First dose [place] XL) tablet 00 on [facility] 25 mg 02/04/20 at Branch 0100, Until Discontinu ed, Routine dicyclomine 2019-0 2020- No 20mg 20 mg, Uni vers (BENTYL) 02-0318 Oral, TID, ity of tablet 20 06:00: 00:59 9 doses, [place] mg 00 :00 First dose Medical on [facility] 02/04/20 at 0100, Last dose on [facility] 02/06/20 at 1400, Routine furosemide 2019-0 2020- No 20mg 20 mg, IV U nivers (LASIX) 02-03 Push, Q6H, ity o f injection 06:00: 09:32 First dose [place] 20 mg 00 :46 on [facility] 02/04/20 at Branch 0100, Until Discontinu ed, PIERRE traMADoL 2019-0 Yes 50mg 50 mg, Univers (ULTRAM) 02-03 Oral, ity of tablet 50 05:49: Q8HPRN, [place] mg 02 Starting Medical [facility] 02/04/20 at 0049, Until Discontinu ed, Routine, Pain (scale 4-6) sennosides 2019-0 Yes 8.6mg 8.6 mg, Uni vers (SENOKOT) 02-03 Oral, BID, ity of tablet 8.6 05:45: First dose [place] mg 00 on [facility] 02/04/20 at Branch 0045, Until Discontinu ed, Routine docusate 2020-0 Yes 100mg 100 mg, Unive rs (COLACE) 15 Oral, BID, ity o f capsule 100 05:45: First dose [place] mg 00 on [facility] 02/04/20 at Branch 0045, Until Discontinu ed, Routine Sliding 2020-0 Yes Subcutaneo Univ ers Scale 02-03 us, TID ity of Insulin - 05:45: MEALS+HS, [place] J as Aspart 00 First dose Medical (NOVOLOG) + on [facility] Fsbg 02/04/20 at Testing 0045, Until Discontinu ed, Routine ondansetron 2019-0 Yes 4mg 4 mg, Slow Univers (ZOFRAN 02-03 IV Push, ity of (PF)) 05:44: Q6HPRN, [place] injection 4 18 Starting Medi uriel mg [facility] 02/04/20 at 0044, Until Discontinu ed, Routine, Nausea and Vomiting (N/V) glucagon 2019-0 Yes 1mg 1 mg, Univers (GLUCAGEN 02-03 Intramuscu ity of DIAGNOSTIC 05:42: lar, PRN, [place] KIT) 16 Starting Medical injection 1 [facility] mg 02/04/20 at 0042, Until Discontinu ed, PIERRE, Blood Glucose < or = 70 mg/dL and patient is unable to swallow or has mental changes. dextrose 50 2020-0 Yes 25mL 25 mL, Univ ers % in water 02-03 Slow IV ity of (D50W) 05:42: Push, PRN, [place] injection 16 Starting Medica l 25 mL [facility] 02/04/20 at 0042, Until Discontinu ed, PIERRE, Blood Glucose < or = 70 mg/dL and patient is unable to swallow or has mental status changes. morpHINE 2019-0 2020- No 4mg 4 mg, Slow Un char[place] injection 4 02-03 IV Push, ity of mg 01:30: 00:41 ONCE, 1 [place] 00 :00 dose, [facility] Medical 02/03/20 at Branch 2030, STAT ondansetron 2019-0 2020- No 4mg 4 mg, Slow Univers (ZOFRAN 02-03 IV Push, ity of (PF)) 00:30: 23:36 ONCE, 1 [place] injection 4 00 :00 dose, Mon Med ical mg 02/03/20 at [place] 193, PIERRE morpHINE 2019-0 2020- No 4mg 4 mg, Slow Un charley injection 4 02-03 IV Push, ity of mg 00:30: 23:33 ONCE, 1 [place] 00 :00 dose, Mon Medical 02/03/20 at [place] 193, STAT iohexol 2019-0 2020- No 120mL 120 mL, Unive rs (OMNIPAQUE 02-02 Intravenou it y of 350 23:45: 23:19 s, ONCE, 1 [place] BULK-100 00 :00 dose, Mon Medica l mL) 02/03/20 at [place] injection 1845, 120 mL Routine maalox:diph 2019-0 2019- No 15mL 15 mL, Uni vers enhydrAMINE 02-02 Oral, ity of :lidocaine 22:45: 22:41 ONCE, 1 [place] as 2 % viscous 00 :00 dose, Mon Med ical 1:1:1 02/03/20 at [place] (FIRST-MOUT 1744, PIERRE HWASH BLM) oral suspension 15 mL venlafaxine 2019-0 Yes 75mg Take 75 mg Univers 75 mg 702 by mouth 2 ity of tablet 19:14: (two) [place] 09 times Medical daily. Branch levothyroxi 2019-0 Yes 50ug Take 50 Uni vers ne 50 mcg 7-02 mcg by ity of tablet 19:14: mouth [place] 09 every Medical morning. Branch tamsulosin 2019-0 Yes Take by Uni vers 0.4 mg 24 7-02 mouth ity of hr capsule 19:14: daily. [place] 09 Medical Branch lisinopril 2019-0 Yes 2.5mg Take 2.5 Un charley 2.5 mg 7-02 mg by ity of tablet 19:14: mouth [place] 09 daily. Medical Branch metoclopram 2019-0 2020- No 10mg Take 10 mg Univers dora HCl 10 11-20 07-02 by mouth ity of mg tablet 16:00: 00:00 before [place] 31 :00 meals. Medical Branch cadexomer 2020-0 Yes [id number] Apply to Univers iodine 0.9 11-20 [id number] area(s) ity of % gel 00:00: every [place] 00 evening. Medical Branch cadexomer 2019- 2020- No [id number] Apply to Univers iodine 0.9 11-20 [id number] area(s) ity of % gel 00:00: 00:00 every [place] 00 :00 evening. Medical Branch piperacilli 2019-0 2020- No [id number] 3.375g Infuse Univers n-tazobacta 11-20 [id number] 3.375 g it y of m 3.375 00:00: 04:59 every 6 [place] gram/50 mL 00 :00 (six) Medical Piggyback hours for Branc h RTU 35 days. vancomycin/ 2020- No [id number] 1250mg Infuse Univers 0.9 % sod 11-20 [id number] 1,250 mg ity of chloride 00:00: 04:59 every 12 [place] (VANCOMYCIN 00 :00 (twelve) Medi uriel 1250 MG IN hours for Bran ch NS 250 ML) 35 days. 1.25 gram/250 mL Soln insulin NPH 2020- No [id number] 15U inject 15 Univers and regular 11-20 Units ity of human 70-30 00:00: 04:59 under the [place] 100 unit/mL 00 :00 skin every Me dical (70-30) morning Branch injection and evening for 30 days. lidocaine 2020- No 5mL 5 mL, Univer s 1% (PF) 11-19 Subcutaneo ity o f (XYLOCAINE) 16:00: 21:00 , ONCE, [place] injection 5 00 :00 1 dose, Medic al mL Mon11/20/19 Branch at 1100, Routine NaCl 0.9% 2019- Yes 10mL 10 mL, Univer s (NS) 11-19 Slow IV ity of injection 15:53: Push, PRN, [place] 10 mL 33 Starting Medical [facility] 11/20/19 Branch at 1053, Until Discontinu ed, Routine, line maintenanc e magnesium 2019- 2020- No 296mL 296 mL, Uni vers citrate 11-19 Oral, ity of solution 15:30: 14:45 ONCE, 1 [place] 296 mL 00 :00 dose, Wed Medical 11/20/19 at Branch 1030, Routine tc 2020-0 2020- No 24.3mCi 24.3 Univers 99m-medrona 11-18 millicurie i ty of te 18:45: 18:34 , [place] (DRAXIMAGE 00 :00 Intravenou Med ical MDP-25) s, ONCE, 1 [place] injection dose, Tue [facility], Routine morpHINE 2020-0 Yes 2mg 2 mg, Slow Uni vers injection 2 11-18 IV Push, ity of mg 09:37: Q4HPRN, [place] 09 Starting Medical Tue [place] 11/19/19 at 0437, Until Discontinu ed, Routine, Pain (scale 7-10) ondansetron 2020-0 Yes 4mg 4 mg, Slow Univers (ZOFRAN 11-17 IV Push, ity of (PF)) 17:29: Q6HPRN, [place] injection 4 40 Starting Medi uriel mg Mon [place] 11/18/19 at 1229, Until Discontinu ed, Routine, Nausea and Vomiting (N/V) atorvastati 2020-0 Yes 80mg 80 mg, Univ ers n (LIPITOR) 11-17 Oral, QHS, it y of tablet 80 02:00: First dose [place] mg 00 on [facility] 11/17/19 at [place] 2100, Until Discontinu ed, Routine iohexol 2020-0 2020- No 120mL 120 mL, Unive rs (OMNIPAQUE 11-17 Intravenou it y of 350 01:00: 01:00 s, ONCE, 1 [place] BULK-150 00 :00 dose, [place] Medica l mL) 11/17/19 at [place] injection 2015, 120 mL Routine vancomycin 2020-0 Yes 1250mg 1,250 mg, Univers 1250 mg in 11-17 IV ity of NS 250 mL 00:45: Piggyback, [place] RTU IV 00 Q12H ABX, Medical Piggyback First dose Bran ch 1,250 mg on [place] 11/17/19 at 1945, Until Discontinu ed
Reas on for Anti-Infec tive: Documented Infection< br>Documen ludmila Infection Site: Skin / Soft Tissue< br>Duratio n of Therapy: Other (see Comments) cadexomer 2020-0 Yes Topical, Univ ers iodine 11-16 DAILY AT ity of (IODOSORB 20:45: 1700, [place] GEL) 0.9 % 00 First dose Med [...] First dose Medi uriel 40 mg on [place] Branch 11/17/19 at 0900, Until Discontinu ed, Routine tamsulosin 2020-0 Yes .4mg 0.4 mg, [facility] ers (FLOMAX) 11-16 Oral, ity of capsule 0.4 14:00: DAILY, [place] mg 00 First dose Medical on [place] Branch 11/17/19 at 0900, Until Discontinu ed, Routine venlafaxine 2020-0 Yes 75mg 75 mg, Univ ers (EFFEXOR) 11-16 Oral, BID, ity of tablet 75 13:00: First dose [place] mg 00 on [facility] 11/17/19 at Branch 0800, Until Discontinu ed, Routine Sliding 2020-0 Yes Subcutaneo [facility] ers Scale 11-16 us, AC+HS, ity of Insulin-Reg 12:30: First dose [place] ular + [facility] at Branch 0730, Until Discontinu ed, Routine levothyroxi 2020-0 Yes 50ug 50 mcg, Uni vers ne 11-16 Oral, ity of (SYNTHROID) 11:00: QAM-0600, [place] tablet 50 00 First dose Medi uriel mcg on [place] Branch 11/17/19 at 0600, Until Discontinu ed, [...] ABX, Medical gram/50 mL First dose Bra nch Piggyback on Sun RTU 3.375 g 11/17/19 at 0000, Until Discontinu ed, 50 mL
R debbie for Anti-Infec tive: Empiric Therapy for Suspected Infection< br>Empiric Therapy Site: Skin / Soft tissue
Duration of therapy: 7 days insulin NPH 2019-0 Yes 15U 15 Units, U nivers and regular 11-16 Subcutaneo it y of human 7030 04:00: [place], [place] (HUMULIN 00 QAM+PM, Medical 70-30 U-100 First dose Br anch INSULIN) on Sat 100 unit/mL 11/16/19 at (70-30) 2300, injection Until 15 Units Discontinu ed, Routine morpHINE 2019-0 2020- No 2mg 2 mg, Slow [place] injection 2 11-16 0630 IV Push, ity of mg 03:46: 03:45 [place], [place] 00 :00 Starting Medical Sat Branch 11/16/19 at 2246, Until 11/18/19 at 2245, Routine, Pain (scale 7-10) acetaminoph 2019-0 Yes 650mg 650 mg, Un charley en 11-16 Oral, ity of (TYLENOL) 03:45: Q6[place], [place] tablet 650 39 Starting Medic al [...] 42 Starting Medica l 25 mL Sat [place] 11/16/19 at 2130, Until Discontinu ed, PIERRE, Blood Glucose < or = 70 mg/dL and patient is unable to swallow or has mental status changes. morpHINE 2019-2019- No 4mg 4 mg, Slow [place] injection 4 11-16 IV Push, ity of mg 00:45: 23:37 ONCE, 1 [place] 00 :00 dose, Sat Medical 11/16/19 at Branch 1945, STAT insulin 2019-2019- No 8U 8 Units, Unive rs regular 11-16 Subcutaneo ity o f human 00:45: 23:37 us, ONCE, [place] (HUMULIN R) 00 :00 1 dose, Medic al injection 8 Sat [place] Units 11/16/19 at 1945, PIERRE iohexol 2019- No 120mL 120 mL, Unive rs (OMNIPAQUE 11-15 Intravenou it y of 350 23:57: 23:57 s, ONCE, 1 [place] BULK-150 00 :00 dose, Sat Medica l mL) 11/16/19 at [place] injection 1915, 120 mL Routine NaCl 0.9% 2019- No 1000mL at 999 Uni vers (NS) bolus 11-15 mL/hr, ity of infusion 23:30: 23:37 1,000 mL, Juan J as 1,000 mL 00 :00 IV Medical Infusion, [place] ONCE, 1 dose, 11/16/19 at 1830, PIERRE ondansetron 2019- No 8mg 8 mg, Slow Univers (ZOFRAN 11-15 IV Push, ity of (PF)) 23:30: 22:27 ONCE, 1 [place] injection 8 00 :00 dose, Sat Med ical mg 11/16/19 at Branch 1830, PIERRE morpHINE 2019-2019- No 4mg 4 mg, Slow Un [place] injection 4 11-15 IV Push, ity of mg 23:30: 22:27 ONCE, 1 [place] 00 :00 dose, Sat Medical 11/16/19 at [...] 500mL at 999 Univ ers (NS) bolus 09-17-29 mL/hr, 500 it y of infusion 06:00: 05:38 mL, IV [place] 500 mL 00 :00 Infusion, Medical ONCE, 1 Branch dose, 09/18/19 at 0100, STAT NaCl 0.9% 2020-0 2020- No 500mL at 999 Univ ers (NS) bolus 09-17-29 mL/hr, 500 it y of infusion 05:15: 04:46 mL, IV [place] 500 mL 00 :00 Infusion, Medical ONCE, 1 Branch dose, 09/18/19 at 0015, STAT diphenhydrA 2020-0 2020- No 25mg 25 mg, Uni vers MINE 09-17 Slow IV ity of (BENADRYL) 04:00: 02:54 Push, [place] injection 00 :00 ONCE, 1 Medical 25 mg dose, e Branch 09/17/19 at 2300, STAT metoclopram 2019-0 2020- No 10mg 10 mg, Uni vers dora HCl 09-17 Slow IV ity of (REGLAN) 04:00: 02:54 Push, [place] injection 00 :00 ONCE, 1 Medical 10 mg dose, [facility] 09/17/19 at 2300, PIERRE morpHINE 2019-0 2020- No 4mg 4 mg, Slow Un [place] injection 4 09-17 IV Push, ity of mg 04:00: 02:55 ONCE, 1 [place] 00 :00 dose, [facility] Medical 09/17/19 at Branch 2300, STAT iohexol 2019-0 2020- No 120mL 120 mL, Unive rs (OMNIPAQUE 09-17 Intravenou it y of 350 02:38: 02:38 s, ONCE, 1 [place] BULK-150 00 :00 dose, [facility] Medica l mL) 09/17/19 at [place] injection 2145, 120 mL Routine sodium 2019-0 Yes 5mL 5 mL, Univers chloride 09-17 Intravenou ity o f (NS) 01:38: s, PRN, [place] injection 5 51 Starting Medi uriel mL [facility] 09/17/19 at 2037, Until Discontinu ed, Routine, IV line fl[place] dicyclomine 2020-0 Yes [id number] 20mg Take 1 [facility] 20 mg 4-28 tablet by ity of tablet 00:00: mouth [place] 00 every 6 Medical (six) Branch hours as needed for Abdominal pain. ciprofloxac 2020-0 Yes [id number] 500mg Take 1 Univers in HCl 500 -28 tablet by ity of mg tablet 00:00: mouth 2 [place] 00 (two) Medical times Branch daily. metroNIDAZO 2020-0 Yes [id number] 500mg Take 1 Univers LE 500 mg 4-28 tablet by ity o f tablet 00:00: mouth 2 [place] 00 (two) Medical times Branch daily. dicyclomine 2020-0 2020- No [id number] 20mg Take 1 Univers 20 mg -16 12-02 tablet by ity of tablet 00:00: 00:00 mouth [place] 00 :00 every 6 Medical (six) Branch hours as needed for Abdominal pain. ciprofloxac 2020-0 2020- No [id number] 500mg Take 1 [facility] in HCl 500 -16 12-02 tablet by ity of mg tablet 00:00: 00:00 mouth 2 [place] 00 :00 (two) Medical times Branch daily. metroNIDAZO 2020-0 2020- No [id number] 500mg Take 1 Univers LE 500 mg 09-16 tablet by ity of tablet 00:00: 00:00 mouth 2 [place] 00 :00 (two) Medical times [place] daily. lisinopril 2020-0 Yes 2.5mg Take 2.5 Un charley 2.5 mg 4-16 mg by ity of tablet 19:24: mouth [place] 40 daily. Medical Branch lisinopril 2020-0 Yes 2.5mg Take 2.5 [place] 2.5 mg 4-16 mg by ity of tablet 19:24: mouth [place] 40 daily. Medical Branch lisinopril 2020-0 Yes 2.5mg Take 2.5 Un [place] 2.5 mg 4-16 mg by ity of tablet 19:24: mouth [place] 40 daily. [facility] Branch clindamycin 2020- No 300mg 300 mg, U nivers (CLEOCIN 08-14 Oral, ity of HCL) 20:01: 20:02 ONCE, 1 [place] capsule 300 00 :00 dose, Annie Med ical mg 08/15/19 at Branch 1515, PIERRE
Re ason for Anti-Infec tive: Documented Infection< br>Documen ludmila Infection Site: Skin / Soft Tissue
Duration of Therapy: Other (see Comments)< br>Restric ludmila use approved by: [employer] PROVIDER NaCl 0.9% 2019- 2020- No 500mL at 999 Univ ers (NS) bolus 08-14 mL/hr, 500 it y of infusion 19:30: 19:00 mL, IV [place] 500 mL 00 :00 Infusion, Medical ONCE, 1 [place] dose, Annie 08/15/19 at 1430, STAT iohexol 2019-0 2020- No 120mL 120 mL, Unive rs (OMNIPAQUE 08-14 Intravenou it y of 350 19:15: 19:15 s, ONCE, 1 [place] BULK-150 00 :00 dose, [place] Medica l mL) 08/15/19 at [place] injection 1415, 120 mL Routine FENTanyl PF 2019- 2020- No 50ug 50 mcg, Un charley (SUBLIMAZE 08-14 Slow IV ity o f (PF)) 18:23: 18:39 Push, [place] injection 00 :00 ONCE, 1 Medical 50 mcg dose, Annie Branch 08/15/19 at 1330, STAT insulin 2020-0 2020- No 7U 7 Units, Unive rs [...] Med ical mg 08/15/19 at Branch 1245, PIERRE maalox:diph 2019-0 2020- No 15mL 15 mL, Uni vers enhydrAMINE 08-14 Oral, ity of :lidocaine 17:45: 17:45 ONCE, 1 [place] 2 % viscous 00 :00 dose, [place] Med ical 1:1:1 08/15/19 at [place] (FIRST-MOUT 1245, PIERRE HWASH BLM) oral suspension 15 mL famotidine 2019-0 2020- No 20mg 20 mg, Univ ers (PEPCID 08-14 Slow IV ity of (PF)) 17:45: 17:45 Push, [place] injection 00 :00 ONCE, 1 Medical 20 mg dose, [place] Branch 08/15/19 at 1245, PIERRE clindamycin 2020-0 Yes [id number] 300mg Take 1 Univers 300 mg 3-26 capsule by ity of capsule 00:00: mouth 3 [place] 00 (three) Medical times Branch daily. dicyclomine 2020-0 Yes [id number] 10mg Take 1 Univers (BENTYL) 10 3-26 capsule by it y of mg capsule 00:00: mouth 3 [place] 00 (three) Medical times Branch daily as needed for Abdominal pain. ondansetron 2020-0 Yes [id number] 4mg Take 1 Univers (ZOFRAN 3-26 tablet by ity of ODT) 4 mg 00:00: mouth [place] disintegrat 00 every 8 Medic al ing tablet (eight) Branch hours as needed for Nausea and Vomiting (N/V). clindamycin 2020-0 Yes [id number] 300mg Take 1 Univers 300 mg 3-26 capsule by ity of capsule 00:00: mouth 3 [place] 00 (three) Medical times Branch daily. dicyclomine 2020-0 Yes [id number] 10mg Take 1 Univers (BENTYL) 10 3-26 capsule by it y of mg capsule 00:00: mouth 3 [place] 00 (three) Medical times Branch daily as needed for Abdominal pain. ondansetron 2020-0 Yes [id number] 4mg Take 1 Univers (ZOFRAN 3-26 tablet by ity of ODT) 4 mg 00:00: mouth [place] disintegrat 00 every 8 Medic al ing tablet (eight) Branch hours as needed for Nausea and Vomiting (N/V). clindamycin 2020-0 Yes [id number] 300mg Take 1 Univers 300 mg 3-26 capsule by ity of capsule 00:00: mouth 3 [place] 00 (three) Medical times Branch daily. dicyclomine 2020-0 Yes [id number] 10mg Take 1 Univers (BENTYL) 10 3-26 capsule by it y of mg capsule 00:00: mouth 3 [place] 00 (three) Medical times Branch daily as needed for Abdominal pain. ondansetron 2020-0 Yes [id number] 4mg Take 1 Univers (ZOFRAN 3-26 tablet by ity of ODT) 4 mg 00:00: mouth [place] disintegrat 00 every 8 Medic al ing tablet (eight) Branch hours as needed for Nausea and Vomiting (N/V). clindamycin 2020-0 Yes [id number] 300mg Take 1 Univers 300 mg 3-26 capsule by ity of capsule 00:00: mouth 3 [place] 00 (three) Medical times Branch daily. dicyclomine 2020-0 Yes [id number] 10mg Take 1 Univers (BENTYL) 10 3-26 capsule by it y of mg capsule 00:00: mouth 3 [place] 00 (three) Medical times Branch daily as needed for Abdominal pain. ondansetron 2020-0 Yes [id number] 4mg Take 1 Univers (ZOFRAN 3-26 tablet by ity of ODT) 4 mg 00:00: mouth [place] disintegrat 00 every 8 Medic al ing tablet (eight) Branch hours as needed for Nausea and Vomiting (N/V). clindamycin 2020-0 Yes [id number] 300mg Take 1 [facility] 300 mg 3-26 capsule by ity of capsule 00:00: mouth 3 [place] 00 (three) Medical times Branch daily. dicyclomine 2020-0 Yes [id number] 10mg Take 1 [facility] (BENTYL) 10 3-26 capsule by it y of mg capsule 00:00: mouth 3 [place] 00 (three) Medical times Branch daily as needed for Abdominal pain. ondansetron 2020-0 Yes [id number] 4mg Take 1 [facility] (ZOFRAN 3-26 tablet by ity of ODT) 4 mg 00:00: mouth [place] disintegrat 00 every 8 Medic al ing tablet (eight) Branch hours as needed for Nausea and Vomiting (N/V). clindamycin 2020-0 Yes [id number] 300mg Take 1 [facility] 300 mg 3-26 capsule by ity of capsule 00:00: mouth 3 [place] 00 (three) Medical times Branch daily. dicyclomine 2020-0 Yes [id number] 10mg Take 1 [facility] (BENTYL) 10 3-26 capsule by it y of mg capsule 00:00: mouth 3 [place] 00 (three) Medical times Branch daily as needed for Abdominal pain. ondansetron 2020-0 Yes [id number] 4mg Take 1 [facility] (ZOFRAN 3-26 tablet by ity of ODT) 4 mg 00:00: mouth [place] disintegrat 00 every 8 Medic al ing tablet (eight) Branch hours as needed for Nausea and Vomiting (N/V). clindamycin 2020-0 Yes [id number] 300mg Take 1 [facility] 300 mg 3-26 capsule by ity of capsule 00:00: mouth 3 [place] 00 (three) Medical times Branch daily. dicyclomine 2020-0 Yes [id number] 10mg Take 1 [facility] (BENTYL) 10 3-26 capsule by it y of mg capsule 00:00: mouth 3 [place] 00 (three) Medical times Branch daily as needed for Abdominal pain. ondansetron 2020-0 Yes [id number] 4mg Take 1 [facility] (ZOFRAN 3-26 tablet by ity of ODT) 4 mg 00:00: mouth [place] disintegrat 00 every 8 Medic al ing tablet (eight) Branch hours as needed for Nausea and Vomiting (N/V). clindamycin 2020-0 Yes [id number] 300mg Take 1 [facility] 300 mg 3-26 capsule by ity of capsule 00:00: mouth 3 [place] 00 (three) Medical times Branch daily. dicyclomine 2020-0 Yes [id number] 10mg Take 1 [facility] (BENTYL) 10 3-26 capsule by it y of mg capsule 00:00: mouth 3 [place] 00 (three) Medical times Branch daily as needed for Abdominal pain. ondansetron 2020-0 Yes [id number] 4mg Take 1 [facility] (ZOFRAN 3-26 tablet by ity of ODT) 4 mg 00:00: mouth [place] disintegrat 00 every 8 Medic al ing tablet (eight) Branch hours as needed for Nausea and Vomiting (N/V). ondansetron 2020-0 Yes [id number] 4mg Take 1 [facility] (ZOFRAN 3-26 tablet by ity of ODT) 4 mg 00:00: mouth [place] disintegrat 00 every 8 Medic al ing tablet (eight) Branch hours as needed for Nausea and Vomiting (N/V). ondansetron 2020-0 2020- No [id number] 4mg Take 1 [facility] (ZOFRAN 3-26 09-16 tablet by ity of ODT) 4 mg 00:00: 00:00 mouth [place] disintegrat 00 :00 every 8 Medic al ing tablet (eight) Branch hours as needed for Nausea and Vomiting (N/V). clindamycin 2020-0 2020- No [id number] 300mg Take 1 [facility] 300 mg 3-14 12-02 capsule by ity of capsule 00:00: 00:00 mouth 3 [place] 00 :00 (three) Medical times Branch daily. dicyclomine 2020-0 2020- No [id number] 10mg Take 1 [facility] (BENTYL) 10 3-26 -02 capsule by i ty of mg capsule 00:00: 00:00 mouth 3 [place] 00 :00 (three) Medical times Branch daily as needed for Abdominal pain. mupirocin 2 2020-0 2020- No [id number] Apply to [facility] % ointment 08-14- area(s) 3 ity of 00:00: 04:59 (three) [place] 00 :00 times Medical daily for Branch 5 days. mupirocin 2 2020-0 2020- No [id number] Apply to [facility] % ointment -14 09- area(s) 3 ity of 00:00: 04:59 (three) [place] 00 :00 times Medical daily for Branch 5 days. mupirocin 2 2019- 2020- No [id number] Apply to [facility] % ointment 08-14 area(s) 3 ity of 00:00: 04:59 (three) [place] 00 :00 times Medical daily for Branch 5 days. mupirocin 2 2019-2019- No [id number] Apply to [facility] % ointment 08-14 area(s) 3 ity of 00:00: 04:59 (three) [place] 00 :00 times Medical daily for Branch 5 days. mupirocin 2 2019- 2020- No [id number] Apply to [facility] % ointment 08-14 area(s) 3 ity of 00:00: 04:59 (three) [place] 00 :00 times Medical daily for Branch 5 days. clindamycin 2019-2019- No [id number] 300mg Take 1 [facility] 300 mg 08-14- capsule by ity of capsule 00:00: 00:00 mouth 3 [place] 00 :00 (three) Medical times Branch daily for 7 days. dicyclomine 2019- 2020- No [id number] 10mg Take 1 [facility] (BENTYL) 10 08-14- capsule by i ty of mg capsule 00:00: 00:00 mouth 3 [place] 00 :00 (three) Medical times Branch daily as needed for Abdominal pain. ondansetron 2019-2019- No [id number] 4mg Take 1 [facility] (ZOFRAN 08-14-26 tablet by ity of ODT) 4 mg 00:00: 00:00 mouth [place] disintegrat 00 :00 every 8 Medic al ing tablet (eight) Branch hours as needed for Nausea and Vomiting (N/V). ezetimibe 2019- 2020- No [id number] 10mg Take 1 U nivers 10 mg 3-21 -21 tablet by ity of tablet 00:00: 04:59 mouth [place] 00 :00 daily for Medical 30 days. Branch ezetimibe 2020- No [id number] 10mg Take 1 U nivers 10 mg 3-21 -21 tablet by ity of tablet 00:00: 04:59 mouth [place] 00 :00 daily for Medical 30 days. Branch ezetimibe 2019-0 2020- No [id number] 10mg Take 1 U nivers 10 mg 3-21 04-21 tablet by ity of tablet 00:00: 04:59 mouth [place] 00 :00 daily for Medical 30 days. [place] ezetimibe 2019-0 2020- No [id number] 10mg Take 1 U nivers 10 mg 3-21 04-21 tablet by ity of tablet 00:00: 04:59 mouth [place] 00 :00 daily for Medical 30 days. [place] ezetimibe 2019-0 2020- No [id number] 10mg Take 1 U nivers 10 mg 3-21 04-21 tablet by ity of tablet 00:00: 04:59 mouth [place] 00 :00 daily for Medical 30 days. [place] ezetimibe 2019- 2020- No [id number] 10mg Take 1 U nivers 10 mg 3-21 04-21 tablet by ity of tablet 00:00: 04:59 mouth [place] 00 :00 daily for Medical 30 days. [place] ezetimibe 2019-0 2020- No [id number] 10mg Take 1 U nivers 10 mg 3-21 -21 tablet by ity of tablet 00:00: 04:59 mouth [place] 00 :00 daily for Medical 30 days. [place] ezetimibe 2019-0 2020- No [id number] 10mg Take 1 U nivers 10 mg 3-21 -21 tablet by ity of tablet 00:00: 04:59 mouth [place] 00 :00 daily for Medical 30 days. [place] ezetimibe 2019-0 2020- No [id number] 10mg Take 1 U nivers 10 mg 3-21 -21 tablet by ity of tablet 00:00: 04:59 mouth [place] 00 :00 daily for Medical 30 days. [place] ezetimibe 2019-0 2020- No [id number] 10mg Take 1 U nivers 10 mg 3-21 04-21 tablet by ity of tablet 00:00: 04:59 mouth [place] 00 :00 daily for Medical 30 days. [place] venlafaxine 2019-0 Yes 75mg Take 75 mg [...] mouth ity of hr capsule 20:20: daily. [place] Medical Branch lisinopril 2020-0 Yes 2.5mg Take [...] 2 ity of tablet 20:20: (two) [place] times Medical daily. Branch levothyroxi 2020-0 Yes [...] mouth ity of hr capsule 20:20: daily. [place] [address] Medical Branch venlafaxine 2020-0 Yes 75mg Take [...] mouth ity of hr capsule 20:20: daily. [place] [address] Medical Branch venlafaxine 2020-0 Yes 75mg Take 75 mg [facility] 75 mg 3-20 by mouth 2 ity of tablet 20:20: (two) [place] times Medical daily. Branch levothyroxi 2020-0 Yes [...] mouth ity of hr capsule 20:20: daily. [place] [address] Medical Branch ezetimibe 2020-0 Yes 10mg 10 mg, Univer s (ZETIA) 3-20 Oral, ity of tablet 10 14:00: DAILY, [place] mg 00 First dose Medical on Mon Branch 08/09/19 at 0900, Until Discontinu ed, Routine pantoprazol 2020-0 Yes [id number] 40mg Take 2 U nivers e 20 mg EC 3-20 tablets by ity of tablet 00:00: mouth [place] 00 daily. Medical Branch pantoprazol 2020-0 Yes [id number] 40mg Take 2 U nivers e 20 mg EC 3-20 tablets by ity of tablet 00:00: mouth [place] 00 daily. Medical Branch pantoprazol 2020-0 Yes [id number] 40mg Take 2 U nivers e 20 mg EC 3-20 tablets by ity of tablet 00:00: mouth [place] 00 daily. Medical Branch pantoprazol 2020-0 Yes [id number] 40mg Take 2 U nivers e 20 mg EC 3-20 tablets by ity of tablet 00:00: mouth [place] 00 daily. Medical Branch pantoprazol 2020-0 Yes [id number] 40mg Take 2 U nivers e 20 mg EC 3-20 tablets by ity of tablet 00:00: mouth [place] 00 daily. [facility] Branch pantoprazol 2020-0 Yes [id number] 40mg Take 2 U nivers e 20 mg EC 3-20 tablets by ity of tablet 00:00: mouth [place] 00 daily. Medical Branch pantoprazol 2020-0 Yes [id number] 40mg Take 2 U nivers e 20 mg EC 3-20 tablets by ity of tablet 00:00: mouth [place] 00 daily. Medical Branch pantoprazol 2020-0 Yes [id number] 40mg Take 2 U nivers e 20 mg EC 3-20 tablets by ity of tablet 00:00: mouth [place] 00 daily. Medical Branch pantoprazol 2020-0 Yes [id number] 40mg Take 2 U nivers e 20 mg EC 3-20 tablets by ity of tablet 00:00: mouth [place] 00 daily. Medical Branch pantoprazol 2020-0 Yes [id number] 40mg Take 2 U nivers e 20 mg EC 3-20 tablets by ity of tablet 00:00: mouth [place] 00 daily. Medical Branch pantoprazol 2020-0 Yes [id number] 40mg Take 2 U nivers e 20 mg EC 3-20 tablets by ity of tablet 00:00: mouth [place] 00 daily. [facility] Branch pantoprazol 2020-0 Yes [id number] 40mg Take 2 U nivers e 20 mg EC 3-20 tablets by ity of tablet 00:00: mouth [place] 00 daily. [facility] Branch pantoprazol 2020-0 2020- No [id number] 40mg Take 2 Univers e 20 mg EC 3-20 09-16 tablets by it y of tablet 00:00: 00:00 mouth [place] 00 :00 daily. Medical Branch glipiZIDE 5 2019-2019- No [id number] 5mg Take 1 [facility] mg tablet 3-20 04-20 tablet by ity of 00:00: 04:59 mouth 2 [place] 00 :00 (two) Medical times Branch daily before breakfast and dinner for 30 days. glipiZIDE 5 2019- No [id number] 5mg Take 1 [facility] mg tablet 3-20 04-20 tablet by ity of 00:00: 04:59 mouth 2 [place] 00 :00 (two) Medical times Branch daily before breakfast and dinner for 30 days. glipiZIDE 5 2019- No [id number] 5mg Take 1 [facility] mg tablet 3-20 04-20 tablet by ity of 00:00: 04:59 mouth 2 [place] 00 :00 ([facility]) Medical times Branch daily before breakfast and dinner for 30 days. glipiZIDE 5 2019- No [id number] 5mg Take 1 [facility] mg tablet 3-20 04-20 tablet by ity of 00:00: 04:59 mouth 2 [place] 00 :00 (two) Medical times Branch daily before breakfast and dinner for 30 days. glipiZIDE 5 2019- No [id number] 5mg Take 1 [facility] mg tablet 3-20 04-20 tablet by ity of 00:00: 04:59 mouth 2 [place] 00 :00 ([facility]) Medical times Branch daily before breakfast and dinner for 30 days. glipiZIDE 5 2019- No [id number] 5mg Take 1 [facility] mg tablet 3-20 04-20 tablet by ity of 00:00: 04:59 mouth 2 [place] 00 :00 (two) Medical times Branch daily before breakfast and dinner for 30 days. glipiZIDE 5 2019- No [id number] 5mg Take 1 [facility] mg tablet 3-20 04-20 tablet by ity of 00:00: 04:59 mouth 2 [place] 00 :00 (two) Medical times Branch daily before breakfast and dinner for 30 days. glipiZIDE 5 2019- No [id number] 5mg Take 1 [facility] mg tablet 3-20 04-20 tablet by ity of 00:00: 04:59 mouth 2 [place] 00 :00 (two) Medical times Branch daily before breakfast and dinner for 30 days. glipiZIDE 5 2020-0 2020- No [id number] 5mg Take 1 [facility] mg tablet 3-20 -20 tablet by ity of 00:00: 04:59 mouth 2 [place] 00 :00 (two) Medical times [place] daily before breakfast and dinner for 30 days. glipiZIDE 5 2020-0 2020- No [id number] 5mg Take 1 [facility] mg tablet 3-20 04-20 tablet by ity of 00:00: 04:59 mouth 2 [place] 00 :00 (two) Medical times [place] daily before breakfast and dinner for 30 days. NaCl 0.9% 2019-0 2020- No 500mL at 999 [facility] ers (NS) bolus 08-07-19 mL/hr, 500 it [...] [place] Med ical (w/v) oral 08/08/19 at [facility] suspension 1145, 340 g Routine insulin [...] Yes .4mg 0.4 mg, Univ ers (FLOMAX) 3-18 Oral, ity of capsule 0.4 14:00: DAILY, [place] mg 00 First dose Medical on Mon08/07/19 at 0900, Until Discontinu ed, Routine pantoprazol 2020-0 Yes 40mg 40 mg, Univ ers e 3-18 Oral, ity of (PROTONIX) 14:00: DAILY, [place] EC tablet 00 First dose Medi uriel 40 mg on Mon08/07/19 at 0900, Until Discontinu ed, Routine clopidogreL 2020-0 Yes 75mg 75 mg, Univ ers (PLAVIX) -18 Oral, ity of tablet 75 14:00: DAILY, [place] mg 00 First dose Medical on Mon08/07/19 at 0900, Until Discontinu ed, Routine levothyroxi 2020-0 Yes 50ug 50 mcg, Uni vers ne 08-06 Oral, ity of (SYNTHROID) 11:00: QAM-0600, [place] tablet 50 00 First dose Medi uriel mcg on Mon08/07/19 at 0600, Until Discontinu ed, Routine peg-electro 2020-0 2020- No 4000mL 4,000 mL, Univers lyte soln 18 -18 Oral, ity of (GOLYTELY) 05:00: 04:28 ONCE, 1 [place] [id number] 00 :00 dose, Mon [facility] ical .74 -5.86 08/07/19 at Bran ch gram 0000, solution Routine 4,000 mL glipiZIDE 2020-0 Yes 5mg 5 mg, Univers (GLUCOTROL) 08-06 Oral, ity of tablet 5 mg 04:15: BIDAC, [place] 00 First dose Medical on Mon [place] 08/06/19 at 2315, Until Discontinu ed, Routine Sliding 2020-0 Yes Subcutaneo Univ ers Scale 3-18 us, TID ity of Insulin - 02:00: MEALS+HS, [place] Aspart 00 First dose Medical (NOVOLOG) + on Mon [facility]sbg 08/06/19 at Testing 2100, Until Discontinu ed, Routine atorvastati 2020-0 Yes 80mg 80 mg, Univ ers n (LIPITOR) 3-18 Oral, QHS, it y of tablet 80 02:00: First dose [place] mg 00 on [facility] 08/06/19 at Branch 2099, Until Discontinu ed, Routine aspirin 2020-0 Yes 81mg 81 mg, Univers chewable 3-18 Oral, QHS, ity o f tablet 81 02:00: First dose [place] mg 00 on [facility] 08/06/19 at Branch 2099, Until Discontinu ed, Routine venlafaxine 2020-0 Yes 75mg 75 mg, Univ ers (EFFEXOR) 3-18 Oral, BID, ity of tablet 75 01:00: First dose [place] mg 00 on [facility] 08/06/19 at Branch 1999, Until Discontinu ed, Routine apixaban 2020-0 Yes 1358 5mg 5 mg, Univers (ELIQUIS) 3-18 Oral, BID, ity of tablet 5 mg 01:00: First dose [place] 00 on [facility] 08/06/19 at Branch 2000, Until Discontinu ed, Routine lisinopril 2020-0 Yes 2.5mg 2.5 mg, Uni vers (PRINIVIL,Z 3-18 Oral, ity of ESTRIL) 00:00: DAILY, [place] tablet 2.5 00 First dose Med ical mg on [facility] 08/06/19 at 1900, Until Discontinu ed, Routine hyoscyamine 2020-0 Yes .125mg 0.125 mg, Univers sulfate 08-05 Sublingual ity of (LEVSIN/SL) 23:55: , Q8HPRN, [place] sublingual 01 Starting Medic al tablet [facility] 0.125 mg 08/06/19 at 1855, Until Discontinu ed, Routine, Pain (scale 1-3), abdominal pain morpHINE 2020-0 Yes 2mg 2 mg, Slow Uni vers injection 2 08-05 IV Push, ity of mg 23:11: Q3HPRN, [place] 26 Starting Medical [facility] 08/06/19 at 1811, Until Discontinu ed, Routine, Chest pain insulin NPH 2020-0 2020- No 14U 14 Units, Univers (HUMULIN N) 08-05 Subcutaneo i ty of injection 23:00: 23:51 , [place] 14 Units 00 :41 QAM+PM, Medical First dose Branch on [facility] 08/06/19 at 1800, Until Discontinu ed, Routine ondansetron 2020-0 Yes 4mg 4 mg, Slow Univers (ZOFRAN 17 IV Push, ity of (PF)) 22:52: Q6HPRN, [place] injection 4 11 Starting Medi uriel mg [facility] 08/06/19 at 1752, Until Discontinu ed, Routine, Nausea and Vomiting (N/V) HYDROcodone 2019-0 2020- No 1{tbl} 1 tablet, Univers -acetaminop 08-05 Oral, ity of hen (NORCO 22:51: 22:50 Q6HPRN, [place] 5) 5-325 mg 51 :51 Starting Medi uriel tablet 1 [facility] tablet 08/06/19 at 1751, Until [place] 08/08/19 at 1750, Routine, Pain (scale 4-6) nitroglycer 2019-0 Yes .4mg 0.4 mg, Uni vers in 08-05 Sublingual ity of (NITROSTAT) 22:49: , Q5MIN [place] sublingual 16 PRN, Medical tablet 0.4 Starting Branc h mg [facility] 08/06/19 at 1749, Until Discontinu ed, Routine, Chest pain ondansetron 2019-0 2020- No 4mg 4 mg, Slow Univers (ZOFRAN 08-05 IV Push, ity of (PF)) 20:30: 19:38 ONCE, 1 [place] injection 4 00 :00 dose, [facility] Med ical mg 08/06/19 at Branch 1530, [place]ER[place] FENTanyl PF 2019-0 2020- No 75ug 75 mcg, [facility] [place] (SUBLIMAZE 08-05 Slow IV ity o f (PF)) 20:30: 19:38 Push, [place] injection 00 :00 ONCE, 1 Medical 75 mcg dose, [facility] Branch 08/06/19 at 1530, STAT venlafaxine 2020-0 Yes 75mg Take 75 mg [...] before [place] 56 meals. Medical Branch tamsulosin 2019-0 Yes Take by Uni vers 0.4 mg 24 2-28 mouth ity of hr capsule 03:14: daily. [place] [address] Medical Branch lisinopril 2020-0 Yes 2.5mg Take [...] mouth ity of hr capsule 03:14: daily. [place] [address] Medical Branch lisinopril 2020-0 Yes 2.5mg Take [...] mouth ity of hr capsule 03:14: daily. [place] [address] Medical Branch lisinopril 2020-0 Yes 2.5mg Take [...] 03:00: First dose [place] mg 00 on [facility] 07/18/19 at [place] 2100, Until Discontinu ed, Routine atorvastati 2020-0 Yes 80mg 80 mg, Univ ers n (LIPITOR) 2-28 Oral, QHS, it y of tablet 80 03:00: First dose [place] mg 00 on [facility] 07/18/19 at [place] 2100, Until Discontinu ed, Routine clopidogreL 2020-0 2020- No 300mg 300 mg, U nivers (PLAVIX) 2-28 02-28 Oral, ity of tablet 300 02:00: 01:47 ONCE, 1 [place] mg 00 :00 dose, [facility] 07/18/19 at Branch 2000, Routine clopidogreL 2020-0 Yes [id number] 75mg Take 1 [facility] 75 mg 2-28 tablet by ity of tablet 00:00: mouth [place] 00 daily. Medical Branch clopidogreL 2020-0 Yes [id number] 75mg Take 1 [facility] 75 mg 2-28 tablet by ity of tablet 00:00: mouth [place] 00 daily. Medical Branch clopidogreL 2020-0 Yes [id number] 75mg Take 1 [facility] 75 mg 2-28 tablet by ity of tablet 00:00: mouth [place] 00 daily. [facility] Branch clopidogreL 2020-0 Yes [id number] 75mg Take 1 [facility] 75 mg 2-28 tablet by ity of tablet 00:00: mouth [place] 00 daily. Medical Branch clopidogreL 2020-0 Yes [id number] 75mg Take 1 [facility] 75 mg 2-28 tablet by ity of tablet 00:00: mouth [place] 00 daily. Medical Branch clopidogreL 2020-0 Yes [id number] 75mg Take 1 [facility] 75 mg 2-28 tablet by ity of tablet 00:00: mouth [place] 00 daily. Medical Branch clopidogreL 2020-0 Yes [id number] 75mg Take 1 [facility] 75 mg 2-28 tablet by ity of tablet 00:00: mouth [place] 00 daily. Medical Branch clopidogreL 2020-0 Yes [id number] 75mg Take 1 [facility] 75 mg 2-28 tablet by ity of tablet 00:00: mouth [place] 00 daily. Medical Branch clopidogreL 2020-0 Yes [id number] 75mg Take 1 [facility] 75 mg 2-28 tablet by ity of tablet 00:00: mouth [place] 00 daily. Medical Branch clopidogreL 2020-0 Yes [id number] 75mg Take 1 [facility] 75 mg 2-28 tablet by ity of tablet 00:00: mouth [place] 00 daily. Medical Branch clopidogreL 2020-0 Yes [id number] 75mg Take 1 [facility] 75 mg 2-28 tablet by ity of tablet 00:00: mouth [place] 00 daily. Medical Branch clopidogreL 2020-0 Yes [id number] 75mg Take 1 [facility] 75 mg 2-28 tablet by ity of tablet 00:00: mouth [place] 00 daily. Medical Branch clopidogreL 2020-0 Yes [id number] 75mg Take 1 [facility] 75 mg 2-28 tablet by ity of tablet 00:00: mouth [place] 00 daily. [facility] Branch clopidogreL 2020-0 Yes [id number] 75mg Take 1 [facility] 75 mg 2-28 tablet by ity of tablet 00:00: mouth [place] 00 daily. Medical Branch clopidogreL 2020-0 Yes [id number] 75mg Take 1 [facility] 75 mg 2-28 tablet by ity of tablet 00:00: mouth [place] 00 daily. Medical Branch clopidogreL 2020-0 Yes [id number] 75mg Take 1 [facility] 75 mg 2-28 tablet by ity of tablet 00:00: mouth [place] 00 daily. [facility] Branch clopidogreL 2020-0 2020- No [id number] 75mg Take 1 Univers 75 mg 2-28 09-16 tablet by ity of tablet 00:00: 00:00 mouth [place] 00 :00 daily. [facility] Branch insulin NPH 2020-0 Yes 14U 14 Units, U nivers (HUMULIN N) 2-27 Subcutaneo it y of injection 23:00: us, QPM, [place] 14 Units 00 First dose Medic al on [facility] 07/18/19 at 1700, Until Discontinu ed, Routine perflutren 2020-0 2020- No IV Push, [place] protein-A 07-18 TITRATE - ity of microsphr 19:11: 19:11 FOR [place] (OPTISON) 16 :16 PROCEDURE Medic al injection USE, 1 Branch dose, Starting [facility] 07/18/19 at 1311, Until [facility] 07/18/19 at 1311, Routine amLODIPine 2019-0 2020- No 5mg Take 5 mg U nivers 5 mg tablet 07-18 by mouth ity of 17:41: 00:00 daily. [place] 39 :00 Medical Branch ibuprofen 2020-0 2020- No 600mg Take 600 [place] 600 mg 07-18 mg by ity of tablet 17:41: 00:00 mouth 3 [place] 39 :00 (three) Medical times [place] daily with meals. dicyclomine 2019-0 Yes 10mg 10 mg, Univ ers (BENTYL) 07-18 Oral, QID, ity o f capsule 10 16:00: First dose [place] mg 00 on [facility] 07/18/19 at Branch 1000, Until Discontinu ed, Routine magnesium 2020-0 2020- No 296mL 296 mL, Uni vers citrate 07-18 Oral, ity of solution 15:17: 16:50 ONCE, 1 [place] 296 mL 00 :00 dose, [facility] 07/18/19 at Branch 0930, PIERRE pantoprazol 2020-0 Yes 40mg 40 mg, Univ ers e 07-18 Oral, ity of (PROTONIX) 15:00: DAILY, [place] EC tablet 00 First dose Medi uriel [address] [facility] 07/18/19 at 0900, Until Discontinu ed, Routine insulin NPH 2020-0 Yes 16U 16 Units, U nivers (HUMULIN N) 07-18 Subcutaneo it y of injection 15:00: , KASHIF, [place] 16 Units 00 First dose Medic al on [facility] 07/18/19 at 0900, Until Discontinu ed, Routine aspirin 2020-0 Yes 81mg 81 mg, Univers chewable 07-18 Oral, ity of tablet 81 15:00: DAILY, [place] mg 00 First dose Medical on [facility] 07/18/19 at 0900, Until Discontinu ed, Routine venlafaxine 2020-0 Yes 75mg 75 mg, Univ ers (EFFEXOR) 07-18 Oral, BID, ity of tablet 75 14:00: First dose [place] mg 00 on [facility] Medical 07/18/19 at Branch 0800, Until Discontinu ed, Routine ticagrelor 2019-0 2020- No 90mg 90 mg, Univ ers (BRILINTA) 07-18 Oral, BID, it y of tablet 90 14:00: 23:22 First dose [place] mg 00 :37 on [facility] Medical 07/18/19 at Branch 0800, Until Discontinu ed, Routine metoclopram 2019-0 Yes 10mg 10 mg, Univ ers dora HCl 07-18 Oral, AC, ity of (REGLAN) 13:30: First dose [place] tablet 10 00 on [facility] mg 07/18/19 at Branch 0730, Until Discontinu ed, Routine levothyroxi 2019-0 Yes 50ug 50 mcg, Uni vers ne 07-18 Oral, ity of (SYNTHROID) 12:00: QAM-0600, [place] tablet 50 00 First dose Medi uriel mcg on [facility] Branch 07/18/19 at 0600, Until Discontinu ed, Routine iohexol 2019- 2020- No 120mL 120 mL, Unive rs (OMNIPAQUE 07-18 Intravenou it y of 350 12:00: 11:50 s, ONCE, 1 [place] BULK-150 00 :00 dose, [facility] Medica l mL) 07/18/19 at Branch injection 0600, 120 mL Routine heparin 2019-0 2020- No 12U/kg/ 12 Univer s 25,000 07-18 h Units/kg/h ity of unit/250 mL 10:30: 23:24 r ?77.1 kg [place] (Premixed 00 :37 (9.252 Medical Bag) in D5W mL/hr, Branch weight rounded to based 9.25 dosing ACS mL/hr), IV protocol Infusion, CONTINUOUS , Starting [place] 07/18/19 at 0430, Until [place] 07/18/19 at 1724 Sliding 2020-0 Yes Subcutaneo Univ ers Scale 07-18 us, Q4H, ity of Insulin - 10:15: First dose [place] Aspart 00 on [facility] Medical (NOVOLOG) + 07/18/19 at [facility] Fsbg 0415, Testing Until Discontinu ed, Routine dextrose 2020-0 Yes 250mL 250 mL, IV [place] 10% (D10W) 07-18 Infusion, ity of bolus 09:59: PRN - SEE [place] infusion 37 INSTRUCTIO Medic al 250 mL [...] Medical 07/18/19 at Branch 0330, PIERRE acetaminoph 2019-0 Yes 650mg 650 mg, [place] en 07-18 Oral, ity of (TYLENOL) 09:17: Q6HPRN, [place] tablet 650 08 Starting Medic al mg [facility] Branch 07/18/19 at 0317, Until Discontinu ed, Routine, Pain (scale 1-3) FENTanyl PF 2019-0 2020- No 25ug 25 mcg, [place] (SUBLIMAZE 07-18 Slow IV ity o f (PF)) 07:30: 06:30 Push, [place] injection 00 :00 ONCE, 1 Medical 25 mcg dose, [facility] Branch 07/18/19 at 0130, STAT insulin 2019-0 2020- No 5U 5 Units, [facility] rs regular 07-18 Subcutaneo ity o f human 06:45: 05:37 us, ONCE, [place] (HUMULIN R) 00 :00 1 dose, Medic al injection 5 [facility] Branch Units 07/18/19 at 0045, Routine nitroglycer 2019-0 2020- No .4mg 0.4 mg, [place] in 07-18 Sublingual ity of (NITROSTAT) 06:15: 05:24 , ONCE, 1 [place] sublingual 00 :00 dose, Annie Medi uriel tablet 0.4 07/18/19 at [facility] mg 0015, PIER[place] morpHINE 2019-0 2020- No 4mg 4 mg, Slow [place] injection 4 07-18 IV Push, ity of mg 05:45: 04:41 ONCE, 1 [place] 00 :00 dose, [facility] Medical 07/17/19 at Branch 2345, STAT ticagrelor 2019-0 2020- No 90mg 90 mg, Univ ers (BRILINTA) 07-18 Oral, ONCE it y of tablet 90 05:00: 04:20 NOW, 1 [place] mg 00 :00 dose, [facility] Medical 07/17/19 at Branch 2300, Routine ondansetron 2020-0 2020- No 4mg 4 mg, Slow Univers (ZOFRAN 07-18 IV Push, ity of (PF)) 05:00: 04:08 ONCE, 1 [place] injection 4 00 :00 dose, Wed Med ical mg 07/17/19 at Branch 2300, PIERRE FENTanyl PF 2020-0 2020- No 50ug 50 mcg, [place] (SUBLIMAZE 07-18 Slow IV ity o f (PF)) 05:00: 04:07 Push, [place] injection 00 :00 ONCE, 1 Medical 50 mcg dose, Wed Branch 07/17/19 at 2300, Routine clopidogreL 2020-0 2020- No [id number] Take 4 Univers 75 mg -18 07- tablets by ity of tablet 00:00: 00:00 [...] 2020- No 5mg 5 mg, Univers (ELIQUIS) 2-09 20-05 Oral, ity of tablet 5 mg 22:15: 23:35 ONCE, 1 [place] 00 :[place] dose, Wed Medical 06/26/19 at Branch 1615, Routine famotidine 2020-0 2020- No 20mg Take 20 mg Univers [...] 2-05 Oral, ity of (PROTONIX) 16:30: DAILY, [place] EC tablet 00 First dose Medi uriel 40 mg on Mon [place] 06/26/19 at 1030, Until Discontinu ed, Routine KCL 2019-0 2020- No 40meq 40 mEq, Univers (KLOR-CON - 02-05 Oral, ity of M20) tablet 12:30: 12:09 ONCE, 1 [place] 40 mEq 00 :00 dose, Mon Medical 06/26/19 at Branch 0630, Routine magnesium 2019-0 2020- No 4g 4 g, IV Univ ers sulfate in 06-26- Piggyback, it y of water 4 12:30: 15:20 ONCE, 1 [place] gram/50 mL 00 :00 dose, Mon Medi uriel (8 %) IV 06/26/19 at [place] Piggyback 4 0630, g Routine insulin NPH 2019-0 Yes 14U 14 Units, U nivers (HUMULIN N) - Subcutaneo it y of injection 03:00: us, QHS, [place] 14 Units 00 First dose Medic al on Mon [place] 06/25/19 at 2100, Until Discontinu ed, Routine NaCl 0.9% 2019-0 2020- No 250mL at 999 [facility] ers (NS) bolus 06-26-05 mL/hr, 250 it y of infusion 02:30: 01:32 mL, IV [place] 250 mL 00 :00 Infusion, Medical ONCE, 1 Branch dose, [facility] 06/25/19 at 2030, STAT atorvastati 2019-0 Yes [id number] 80mg Take 1 U nivers n 80 mg 2-05 tablet by ity of tablet 00:00: mouth at [place] 00 bedtime. Medical Branch ticagrelor 2019-0 Yes [id number] 90mg Take 1 [place] 90 mg 2-05 tablet by ity of tablet 00:00: mouth 2 [place] 00 (two) Medical times Branch daily. apixaban 5 2019-0 Yes 1358 5mg Take 1 Unive rs mg tablet 2-05 tablet by ity o f 00:00: mouth 2 [place] 00 (two) Medical times Branch daily. Indication s: atrial fibrillati on apixaban 5 2019-0 Yes 1358 5mg Take 1 Unive rs mg tablet 2-05 tablet by ity o f 00:00: mouth 2 (two) Medical times Branch daily. Indication s: atrial fibrillati on aspirin 81 2020-0 Yes [id number] 81mg Take 1 [place] mg chewable 2-05 tablet by ity of tablet 00:00: mouth at bedtime. Medical Branch pantoprazol 2020-0 Yes [id number] 20mg Take 1 U nivers e 20 mg EC 2-05 tablet by ity of tablet 00:00: mouth daily. Medical Branch atorvastati 2020-0 Yes [id number] 80mg Take 1 U nivers n 80 mg 2-05 tablet by ity of tablet 00:00: mouth at bedtime. Medical Branch ticagrelor 2020-0 Yes [id number] 90mg Take 1 [place] 90 mg [...] atrial fibrillati on aspirin 81 2020-0 Yes [id number] 81mg Take 1 [place] mg chewable 2-05 tablet by ity of tablet 00:00: mouth at bedtime. Medical Branch pantoprazol 2020-0 Yes [id number] 20mg Take 1 U nivers e 20 mg EC 2-05 tablet by ity of tablet 00:00: mouth daily. Medical Branch atorvastati 2020-0 Yes [id number] 80mg Take 1 U nivers n 80 mg 2-05 tablet by ity of tablet 00:00: mouth at bedtime. Medical Branch ticagrelor 2020-0 Yes [id number] 90mg Take 1 [place] 90 mg [...] atrial fibrillati on aspirin 81 2020-0 Yes [id number] 81mg Take 1 [place] mg chewable 2-05 tablet by ity of tablet 00:00: mouth at bedtime. Medical Branch pantoprazol 2020-0 Yes [id number] 20mg Take 1 U nivers e 20 mg EC 2-05 tablet by ity of tablet 00:00: mouth 00 daily. Medical Branch atorvastati 2020-0 Yes [id number] 80mg Take 1 U nivers n 80 mg 2-05 tablet by ity of tablet 00:00: mouth at [place] bedtime. Medical Branch ticagrelor 2020-0 Yes [id number] 90mg Take 1 [place] 90 mg [...] atrial fibrillati on aspirin 81 2020-0 Yes [id number] 81mg Take 1 [place] mg chewable 2-05 tablet by ity of tablet 00:00: mouth at [place] bedtime. Medical Branch pantoprazol 2020-0 Yes [id number] 20mg Take 1 U nivers e 20 mg EC 2-05 tablet by ity of tablet 00:00: mouth 00 daily. Medical Branch atorvastati 2020-0 Yes [id number] 80mg Take 1 U nivers n 80 mg 2-05 tablet by ity of tablet 00:00: mouth at [place] bedtime. Medical Branch ticagrelor 2020-0 Yes [id number] 90mg Take 1 [place] 90 mg [...] atrial fibrillati on aspirin 81 2020-0 Yes [id number] 81mg Take 1 [place] mg chewable 2-05 tablet by ity of tablet 00:00: mouth at [place] bedtime. Medical Branch pantoprazol 2020-0 Yes [id number] 20mg Take 1 U nivers e 20 mg EC 2-05 tablet by ity of tablet 00:00: mouth daily. Medical Branch atorvastati 2020-0 Yes [id number] 80mg Take 1 U nivers n 80 mg 2-05 tablet by ity of tablet 00:00: mouth at [place] bedtime. Medical Branch apixaban 5 2020-0 Yes [id number] 5mg Take 1 Unive rs mg tablet 2-05 tablet by ity o f 00:00: mouth 2 (two) Medical times Branch daily. Indication s: atrial fibrillati on aspirin 81 2020-0 Yes [id number] 81mg Take 1 [place] mg chewable 2-05 tablet by ity of tablet 00:00: mouth at [place] bedtime. Medical Branch pantoprazol 2020-0 Yes [id number] 20mg Take 1 U nivers e 20 mg EC 2-05 tablet by ity of tablet 00:00: mouth daily. Medical Branch atorvastati 2020-0 Yes [id number] 80mg Take 1 U nivers n 80 mg 2-05 tablet by ity of tablet 00:00: mouth at [place] bedtime. Medical Branch apixaban 5 2020-0 Yes 1358 5mg Take 1 Unive rs mg tablet 2-05 tablet by ity o f 00:00: mouth 2 (two) Medical times Branch daily. Indication s: atrial fibrillati on aspirin 81 2020-0 Yes [id number] 81mg Take 1 [place] mg chewable 2-05 tablet by ity of tablet 00:00: mouth at [place] bedtime. Medical Branch pantoprazol 2020-0 Yes [id number] 20mg Take 1 U nivers e 20 mg EC 2-05 tablet by ity of tablet 00:00: mouth 00 daily. Medical Branch atorvastati 2020-0 Yes [id number] 80mg Take 1 U nivers n 80 mg 2-05 tablet by ity of tablet 00:00: mouth at [place] bedtime. Medical Branch apixaban 5 2020-0 Yes 1358 5mg Take 1 Unive rs mg tablet 2-05 tablet by ity o f 00:00: mouth 2 (two) Medical times Branch daily. Indication s: atrial fibrillati on aspirin 81 2020-0 Yes [id number] 81mg Take 1 [place] mg chewable 2-05 tablet by ity of tablet 00:00: mouth at [place] bedtime. Medical Branch pantoprazol 2020-0 Yes [id number] 20mg Take 1 U nivers e 20 mg EC 2-05 tablet by ity of tablet 00:00: mouth daily. Medical Branch atorvastati 2020-0 Yes [id number] 80mg Take 1 U nivers n 80 mg 2-05 tablet by ity of tablet 00:00: mouth at [place] bedtime. Medical Branch apixaban 5 2020-0 Yes 1358 5mg Take 1 Unive rs mg tablet 2-05 tablet by ity o f 00:00: mouth 2 (two) Medical times Branch daily. Indication s: atrial fibrillati on aspirin 81 2020-0 Yes [id number] 81mg Take 1 [place] mg chewable 2-05 tablet by ity of tablet 00:00: mouth at [place] bedtime. Medical Branch pantoprazol 2020-0 Yes [id number] 20mg Take 1 U nivers e 20 mg EC 2-05 tablet by ity of tablet 00:00: mouth daily. Medical Branch atorvastati 2020-0 Yes [id number] 80mg Take 1 U nivers n 80 mg 2-05 tablet by ity of tablet 00:00: mouth at [place] bedtime. Medical Branch apixaban 5 2020-0 Yes 1358 5mg Take 1 Unive rs mg tablet 2-05 tablet by ity o f 00:00: mouth 2 (two) Medical times Branch daily. Indication s: atrial fibrillati on aspirin 81 2020-0 Yes [id number] 81mg Take 1 [place] mg chewable 2-05 tablet by ity of tablet 00:00: mouth at [place] bedtime. Medical Branch atorvastati 2020-0 Yes [id number] 80mg Take 1 U nivers n 80 mg 2-05 tablet by ity of tablet 00:00: mouth at [place] bedtime. Medical Branch apixaban 5 2019-0 Yes 1358 5mg Take 1 Unive rs mg tablet 2-05 tablet by ity o f 00:00: mouth 2 (two) Medical times Branch daily. Indication s: atrial fibrillati on aspirin 81 2020-0 Yes [id number] 81mg Take 1 [place] mg chewable 2-05 tablet by ity of tablet 00:00: mouth at [place] bedtime. Medical Branch atorvastati 2019-0 Yes [id number] 80mg Take 1 U nivers n 80 mg 2-05 tablet by ity of tablet 00:00: mouth at [place] bedtime. Medical Branch apixaban 5 2019-0 Yes 1358 5mg Take 1 Unive rs mg tablet 2-05 tablet by ity o f 00:00: mouth 2 (two) Medical times Branch daily. Indication s: atrial fibrillati on aspirin 81 2020-0 Yes [id number] 81mg Take 1 [place] mg chewable 2-05 tablet by ity of tablet 00:00: mouth at [place] bedtime. Medical Branch atorvastati 2019-0 Yes [id number] 80mg Take 1 U nivers n 80 mg 2-05 tablet by ity of tablet 00:00: mouth at [place] bedtime. Medical Branch apixaban 5 2019-0 Yes 1358 5mg Take 1 Unive rs mg tablet 2-05 tablet by ity o f 00:00: mouth 2 (two) Medical times Branch daily. Indication s: atrial fibrillati on aspirin 81 2020-0 Yes [id number] 81mg Take 1 [place] mg chewable 2-05 tablet by ity of tablet 00:00: mouth at [place] bedtime. Medical Branch atorvastati 2020-0 Yes [id number] 80mg Take 1 U nivers n 80 mg 2-05 tablet by ity of tablet 00:00: mouth at [place] bedtime. Medical Branch apixaban 5 2019-0 Yes 1358 5mg Take 1 Unive rs mg tablet 2-05 tablet by ity o f 00:00: mouth 2 (two) Medical times Branch daily. Indication s: atrial fibrillati on aspirin 81 2020-0 Yes [id number] 81mg Take 1 [place] mg chewable 2-05 tablet by ity of tablet 00:00: mouth at bedtime. Medical Branch atorvastati 2020-0 Yes [id number] 80mg Take 1 U nivers n 80 mg 2-05 tablet by ity of tablet 00:00: mouth at [place] bedtime. Medical Branch apixaban 5 2020-0 Yes 1358 5mg Take 1 Unive rs mg tablet 2-05 tablet by ity o f 00:00: mouth 2 (two) Medical times Branch daily. Indication s: atrial fibrillati on aspirin 81 2020-0 Yes [id number] 81mg Take 1 [place] mg chewable 2-05 tablet by ity of tablet 00:00: mouth at [place] bedtime. Medical Branch atorvastati 2020-0 Yes [id number] 80mg Take 1 U nivers n 80 mg 2-05 tablet by ity of tablet 00:00: mouth at [place] bedtime. Medical Branch apixaban 5 2020-0 Yes 1358 5mg Take 1 Unive rs mg tablet 2-05 tablet by ity o f 00:00: mouth 2 (two) Medical times Branch daily. Indication s: atrial fibrillati on aspirin 81 2020-0 Yes [id number] 81mg Take 1 [place] mg chewable 2-05 tablet by ity of tablet 00:00: mouth at [place] bedtime. Medical Branch atorvastati 2020-0 Yes [id number] 80mg Take 1 U nivers n 80 mg 2-05 tablet by ity of tablet 00:00: mouth at [place] bedtime. Medical Branch apixaban 5 2020-0 Yes 1358 5mg Take 1 Unive rs mg tablet 2-05 tablet by ity o f 00:00: mouth 2 (two) Medical times Branch daily. Indication s: atrial fibrillati on aspirin 81 2020-0 Yes [id number] 81mg Take 1 [place] mg chewable 2-05 tablet by ity of tablet 00:00: mouth at [place] bedtime. Medical Branch atorvastati 2020-0 Yes [id number] 80mg Take 1 U nivers n 80 mg 2-05 tablet by ity of tablet 00:00: mouth at 00 bedtime. Medical Branch apixaban 5 2020-0 Yes 1358 5mg Take 1 Unive rs mg tablet 2-05 tablet by ity o f 00:00: mouth 2 (two) Medical times Branch daily. Indication s: atrial fibrillati on atorvastati 2020-0 Yes [id number] 80mg Take 1 U nivers n 80 mg 2-05 tablet by ity of tablet 00:00: mouth at 00 bedtime. Medical Branch apixaban 5 2020-0 Yes 1358 5mg Take 1 Unive rs mg tablet 2-05 tablet by ity o f 00:00: mouth 2 (two) Medical times Branch daily. Indication s: atrial fibrillati on atorvastati 2020-0 Yes [id number] 80mg Take 1 U nivers n 80 mg 2-05 tablet by ity of tablet 00:00: mouth at [place] bedtime. Medical Branch apixaban 5 2020-0 Yes 1358 5mg Take 1 Unive rs mg tablet 2-05 tablet by ity o f 00:00: mouth 2 (two) Medical times Branch daily. Indication s: atrial fibrillati on atorvastati 2020-0 Yes [id number] 80mg Take 1 U nivers n 80 mg 2-05 tablet by ity of tablet 00:00: mouth at [place] 00 bedtime. Medical Branch apixaban 5 2020-0 Yes 1358 5mg Take 1 Unive rs mg tablet 2-05 tablet by ity o f 00:00: mouth 2 (two) Medical times Branch daily. Indication s: atrial fibrillati on atorvastati 2020-0 Yes [id number] 80mg Take 1 U nivers n 80 mg 2-05 tablet by ity of tablet 00:00: mouth at 00 bedtime. Medical Branch ticagrelor 2020-0 Yes [id number] 90mg Take 1 [place] 90 mg [...] by ity o f 00:00: mouth 2 [place] 00 (two) Medical times Branch daily. Indication s: atrial fibrillati on aspirin 81 2020-0 Yes [id number] 81mg Take 1 [place] mg chewable 2-05 tablet by ity of tablet 00:00: mouth at [place] 00 bedtime. Medical Branch pantoprazol 2020-0 Yes [id number] 20mg Take 1 U nivers e 20 mg EC 2-05 tablet by ity of tablet 00:00: mouth [place] 00 daily. Medical Branch atorvastati 2019-0 2020- No [id number] 80mg Take 1 Univers n 80 mg 06-26 tablet by ity of tablet 00:00: 00:00 mouth at [place] 00 :00 bedtime. Medical Branch apixaban 5 2019-0 2020- No 1358 5mg Take 1 Univ ers mg tablet 06-26 tablet by ity of 00:00: 00:00 mouth 2 [place] 00 :00 (two) Medical times Branch daily. Indication s: atrial fibrillati on aspirin 81 2019-0 2020- No [id number] 81mg Take 1 U nivers mg chewable 06-26 tablet by it y of tablet 00:00: 00:00 mouth at [place] 00 :00 bedtime. Medical Branch pantoprazol 2019-0 2020- No [id number] 20mg Take 1 Univers e 20 mg EC -20 tablet by ity of tablet 00:00: 00:00 mouth [place] 00 :00 daily. Medical Branch ticagrelor 2019-0 2020- No [id number] 90mg Take 1 U nivers 90 mg 06-26 tablet by ity of tablet 00:00: 00:00 mouth 2 [place] 00 :00 (two) Medical times Branch daily. apixaban 5 2019-0 2020- No 1358 5mg Take 1 Univ ers mg tablet 06-26 tablet by ity of 00:00: 00:00 mouth 2 [place] 00 :00 (two) Medical times Branch daily. Indication s: atrial fibrillati on aspirin 81 2020-0 2020- No [id number] 81mg Take 1 U nivers mg chewable 2-09 20-05 tablet by it y of tablet 00:00: 00:00 mouth at [place] 00 :00 bedtime. Medical Branch pantoprazol 2019- No [id number] 20mg Take 1 Univers e 20 mg EC 06-26 tablet by ity of tablet 00:00: 00:00 mouth [place] 00 :00 daily for Medical 60 days. Branch ticagrelor 2019- No [id number] 90mg Take 1 U nivers 90 mg 06-26 tablet by ity of tablet 00:00: 00:00 mouth 2 [place] 00 :00 (two) Medical times Branch daily. atorvastati 2019- No [id number] 80mg Take 1 Univers n 80 mg 06-26 tablet by ity of tablet 00:00: 00:00 mouth at [place] 00 :00 bedtime. Medical Branch apixaban 5 2019- No 1358 5mg Take 1 Univ ers mg tablet 06-26 tablet by ity of 00:00: 00:00 mouth 2 [place] 00 :00 (two) Medical times Branch daily for 30 days. Indication s: atrial fibrillati on apixaban 5 2019- No 1358 5mg Take 1 Univ ers mg tablet 06-26 tablet by ity of 00:00: 00:00 mouth 2 [place] 00 :00 (two) Medical times Branch daily. Indication s: atrial fibrillati on FENTanyl PF 2019- No Slow IV [place] (SUBLIMAZE 06-25- Push, ity of (PF)) 20:27: 20:27 TITRATE - [place] injection 50 :50 FOR Medical PROCEDURE Branch USE, 1 dose, Starting 06/25/19 at 1427, Until 06/25/19 at 1427, Routine adenosine 6 2019- No Intra-chandan Univers mg/1000 mL 06-25- rial, ity of INTRACORONA 20:14: 20:14 TITRATE - [place] RY 40 :40 FOR Medical injection PROCEDURE Branc h for CATH USE, 1 LAB dose, Starting 06/25/19 at 1414, Until Tue 220 at 1414, Routine FENTanyl PF 2019- No Slow IV [place] (SUBLIMAZE 06-25- Push, ity of (PF)) 19:55: 19:55 TITRATE - [place] injection 00 :00 FOR Medical PROCEDURE Branch USE, 1 dose, Starting 2/4/20 at 1355, Until 2/4/20 at 1355, Routine midazolam 2019- No IV Push, Uni vers (VERSED) 06-25 TITRATE - ity o f injection 19:55: 19:55 FOR [place] 00 :00 PROCEDURE Medical USE, 1 Branch dose, Starting Tue 2//20 at 1355, Until Tue 2/20 at 1355, Routine heparin 2019- No Slow IV Univer s 1,000 06-25 Push, ity of unit/mL 19:02: 19:02 TITRATE - [place] injection 31 :31 FOR Medical PROCEDURE Branch USE, 1 dose, Starting Tue 220 at 1302, Until Tue 220 at 1302, Routine phenylephri 2019- No Intravenou Univers ne 1 mg/10 06-25 s, TITRATE it y of mL in NS 18:43: 18:43 - FOR [place] syringe 51 :51 PROCEDURE Medical USE, 1 Branch dose, Starting Tue 220 at 1243, Until Tue 220 at 1243, Routine NaCl 0.9% 2019- No IV Univers (NS) bolus 06-25 Piggyback, it y of infusion 18:43: 20:15 CONTINUOUS [place] 40 :56 PRN, Medical Starting Branch Tue 220 at 1243, Until Discontinu ed, STAT FENTanyl PF 2019- No Slow IV [place] (SUBLIMAZE 06-25 Push, ity of (PF)) 18:34: 18:34 TITRATE - [place] injection 58 :58 FOR Medical PROCEDURE Branch USE, 1 dose, Starting Tue 2//20 at 1234, Until Tue 2//20 at 1234, Routine nitroglycer 2019- No Intravenou Univers in (TRIDIL) 06-25 s, TITRATE i ty of 2 mg in 10 18:34: 18:34 - FOR [place] mL D5W for 53 :53 PROCEDURE Medi uriel Cardiac USE, 1 Branch Cath dose, Starting Tue 220 at 1234, Until 2/4/20 at 1234, Routine heparin 2019- No Slow IV Univer s 1,000 06-25 Push, ity of unit/mL 18:34: 18:34 TITRATE - [place] injection 37 :37 FOR Medical PROCEDURE Branch USE, 1 dose, Starting 2/4/20 at 1234, Until 2/4/20 at 1234, Routine verapamil 2020- No Intra-chandan U nivers (ISOPTIN) 06-25 rial, ity of injection 18:34: 18:34 TITRATE - [place] 27 :27 FOR Medical PROCEDURE Branch USE, 1 dose, Starting 2/4/20 at 1234, Until 2/4/20 at 1234, Routine FENTanyl PF 2019- No Slow IV [...] Until 2/4/20 at 1231, Routine FENTanyl PF 2019- No Slow IV [place] (SUBLIMAZE 06-25 Push, ity of (PF)) 18:15: 18:15 TITRATE - [place] injection 00 :00 FOR Medical PROCEDURE Branch USE, 1 dose, Starting 2/4/20 at 1215, Until 2/4/20 at 1215, Routine midazolam 0 2019- No IV Push, Uni vers (VERSED) 06-25 TITRATE - ity o f injection 18:15: 18:15 FOR [place] 00 :00 PROCEDURE Medical USE, 1 Branch dose, Starting Mon06/25/19 at 1215, Until Mon06/25/19 at 1215, Routine insulin NPH 2020-0 Yes 16U 16 Units, U nivers (HUMULIN N) 06-25 Subcutaneo it y of injection 15:00: us, QAM, [place] 16 Units 00 First dose Medic al on Mon06/25/19 at 0900, Until Discontinu ed, Routine perflutren 2020-0 2020- No 3mL 3 mL, IV [place] protein-A 06-25 Push, ity of microsphr 15:00: 14:50 ONCE, 1 [place] (OPTISON) 00 :00 dose, Mon Medic al injection 3 06/25/19 at [facility] mL 0900, Routine insulin 2020-0 Yes 6U 6 Units, Univer s regular 04 Subcutaneo ity of human 14:00: us, BID [place] (HUMULIN R) 00 MEALS, Medica l injection [...] 10mg 10 mg, Univ ers dora HCl 06-25 Oral, AC, ity of (REGLAN) 13:30: First dose [place] tablet 10 00 on Mon Medical mg 06/25/19 at Branch 0730, Until Discontinu ed, Routine magnesium 2020-0 2020- No 2g 2 g, IV Univ ers sulfate in 06-25 Piggyback, it y of water 2 12:15: 11:35 ONCE, 1 [place] gram/50 mL 00 :00 dose, Mon Medi uriel (4 %) 06/25/19 at [place] infusion 2 0615, g Routine levothyroxi 2020-0 Yes 50ug 50 mcg, Uni vers ne 2-04 Oral, ity of (SYNTHROID) 12:00: QAM-0600, [place] tablet 50 00 First dose Medi uriel mcg on Mon06/25/19 at 0600, Until Discontinu ed, Routine lactated 2019-0 2020- No 1000mL at 100 [facility] ers ringers IV 2-04 02-04 mL/hr, ity of infusion 07:15: 07:38 1,000 mL, [place] 1,000 mL 00 :00 IV Medical Infusion, [place] ONCE, 1 dose, Mon06/25/19 at 0115, Routine heparin 2019-0 2020- No 12U/kg/ 12 Univer s 25,000 2-04 02-05 h Units/kg/h ity of unit/250 mL 03:30: 22:00 r ?77.1 kg [place] (Premixed 00 :04 (9.252 Medical Bag) in D5W mL/hr, Branch weight rounded to based 9.25 dosing ACS mL/hr), IV protocol Infusion, CONTINUOUS , Starting Mon06/24/19 at 2130, Until Mon06/26/19 at 1600 Sliding 2020-0 Yes Subcutaneo [facility] ers Scale 2-04 us, TID ity of Insulin - 03:00: MEALS+HS, [place] Aspart 00 First dose Medical (NOVOLOG) + on Mon [place] [facility] 06/24/19 at Testing 2100, Until Discontinu ed, Routine aspirin 2020-0 Yes 81mg 81 mg, Univers chewable 2-04 Oral, QHS, ity o f tablet 81 03:00: First dose [place] mg 00 on [facility] 06/24/19 at Branch 2100, Until Discontinu ed, Routine morpHINE 2019-0 2019- No 4mg 4 mg, Slow [place] injection 4 - 02-04 IV Push, ity of mg 03:00: 02:22 ONCE, 1 [place] 00 :00 dose, [facility] 06/24/19 at Branch 2100, STAT insulin NPH 2019-0 2019- No 14U 14 Units, Univers (HUMULIN N) 2- 02-04 Subcutaneo i ty of injection 03:00: 04:55 us, [place] 14 Units 00 :24 QAM+HS, Medical First dose Branch on Mon06/24/19 at 2100, Until Discontinu ed, Routine heparin 2020-0 2020- No 4000U 4,000 Univers 1000 2-04 02-04 Units, IV ity of unit/mL 02:30: 03:00 Push, [place] injection 00 :00 ONCE, 1 Medical Soln 4,000 dose, Mon Bran ch Units 06/24/19 at 2030, Routine heparin 2020-0 Yes 3000U FOR Univers (1,000 2-04 REBOLUSING ity of unit/mL, 10 02:18: , Starting [place] mL vial) 09 [facility] 06/24/19 Medic al for at 2018, Branch Rebolusing Until Discontinu ed, Routine
Dosing based on aPTT testing parameters (refer to continuous heparin drip order).
venlafaxine 2020-0 Yes 75mg 75 mg, Univ ers (EFFEXOR) 2-04 Oral, BID, ity of tablet 75 02:00: First dose [place] mg 00 on [facility] 06/24/19 at [place] 1999, Until Discontinu ed, Routine ticagrelor 2020-0 Yes 90mg 90 mg, Unive rs (BRILINTA) 2-04 Oral, BID, ity of tablet 90 02:00: First dose [place] mg 00 on [facility] 06/24/19 at [place] 1999, Until Discontinu ed, Routine famotidine 2020-0 2020- No 20mg 20 mg, Univ ers (PEPCID AC) 2- 02-05 Oral, BID, i ty of tablet 20 02:00: 16:25 First dose [place] mg 00 :14 on [facility] 06/24/19 at [place] 1999, Until Discontinu ed, Routine morpHINE 2020-0 Yes 2mg 2 mg, Slow Uni vers injection 2 2-04 IV Push, ity of mg 01:49: Q4HPRN, [place] 53 Starting Medical [facility] 06/24/19 Branch at 1949, Until Discontinu ed, Routine, Chest pain, angina nitroglycer 2020-0 Yes .4mg 0.4 mg, Uni vers in 2-04 Sublingual ity of (NITROSTAT) 01:47: , Q5MIN [place] sublingual 48 PRN, Medical tablet 0.4 Starting Branc h mg [facility] 06/24/19 at 1947, Until Discontinu ed, Routine, Chest pain dextrose 2020-0 Yes 250mL 250 mL, IV [place] 10% (D10W) 2-04 Infusion, ity of bolus 01:46: PRN - SEE [place] infusion 53 INSTRUCTIO Medic al 250 mL NS, Branch hypoglycem ia, Starting Mon06/24/19 at 1945
De xtrose 10% 250 mL bag contains:& [...] [place] KIT) 50 Starting Medical injection 1 Mon06/24/19 Br anch mg at 1945, Until Discontinu ed, PIERRE, Blood Glucose < or = 70 mg/dL and patient is unable to swallow or has mental changes. ondansetron 2020-0 Yes 4mg 4 mg, Slow Univers (ZOFRAN 2-04 IV Push, ity of (PF)) 01:46: Q6HPRN, [place] injection 4 39 Starting Medi uriel mg 06/24/19 Branch at 194, Until Discontinu ed, Routine, Nausea and Vomiting (N/V) acetaminoph 2020-0 Yes 650mg 650 mg, [place] en 2-04 Oral, ity of (TYLENOL) 01:46: Q6HPRN, [place] tablet 650 29 Starting Medic al mg 06/24/19 Branch at 194, Until Discontinu ed, Routine, Pain (scale 1-3) magnesium 2020-0 2020- No 1g 8 mEq (1 Uni vers sulfate 4 2-04 02-04 g), IV ity of mEq/mL (50 00:00: 00:00 Piggyback, [place] %) 00 :00 ONCE, 1 Medical injection 8 dose, Mon Bra nch mEq 06/24/19 at 1800, STAT ondansetron 2020-0 2020- No 4mg 4 mg, Slow Univers (ZOFRAN 2-03 02-03 IV Push, ity of (PF)) 22:30: 21:25 ONCE, 1 [place] injection 4 00 :00 dose, Mon Med ical mg 06/24/19 at Branch 1630, PIERRE morpHINE 2019-2019- No 4mg 4 mg, Slow [place] injection 4 2-03 02-03 IV Push, ity of mg 22:30: 21:25 ONCE, 1 [place] 00 :00 dose, Mon Medical 06/24/19 at Branch 1630, STAT NaCl 0.9% 2019- No 1000mL at 999 Uni vers (NS) bolus 2-03 02-03 mL/hr, ity of infusion 21:15: 22:42 1,000 mL, [place] 1,000 mL 00 :00 IV Medical Infusion, Branch ONCE, 1 dose, 06/24/19 at 1515, PIERRE insulin NPH 2018-05 Yes [id number] Inject SQ Univers 100 unit/mL -21 16u qam ity o f injection 00:00: and 14u [facility] insulin NPH 2018-05 Yes [id number] Inject SQ Univers 100 unit/mL -21 16u qam ity o f injection 00:00: and 14u [facility] insulin NPH 2018- Yes [id number] Inject SQ Univers 100 unit/mL -21 16u qam ity o f injection 00:00: and 14u [facility] insulin NPH 2018- Yes [id number] Inject SQ Univers 100 unit/mL -21 16u qam ity o f injection 00:00: and 14u [facility] insulin NPH 2018- Yes [id number] Inject SQ Univers 100 unit/mL -21 16u qam ity o f injection 00:00: and 14u [facility] insulin NPH 2018- Yes [id number] Inject SQ Univers 100 unit/mL 1-21 16u qam ity o f injection 00:00: and 14u [facility] insulin NPH 2018- Yes [id number] Inject SQ [facility] 100 unit/mL 1-21 16u qam ity o f injection 00:00: and 14u [facility] insulin NPH 2018- Yes [id number] Inject SQ [facility] 100 unit/mL 1-21 16u qam ity o f injection 00:00: and 14u qpm Medical Branch insulin NPH 2019- Yes [id number] Inject SQ [facility] 100 unit/mL 1-21 16u qam ity o f injection 00:00: and 14u [facility] insulin NPH 2019- Yes [id number] Inject SQ [facility] 100 unit/mL 1-21 16u qam ity o f injection 00:00: and 14u [facility] insulin NPH 2019- Yes [id number] Inject SQ [facility] 100 unit/mL 1-21 16u qam ity o f injection 00:00: and 14u [facility] insulin NPH 2019- Yes [id number] Inject SQ [facility] 100 unit/mL 1-21 16u qam ity o f injection 00:00: and 14u [facility] insulin NPH 2018- Yes [id number] Inject SQ [facility] 100 unit/mL 1-21 16u qam ity o f injection 00:00: and 14u [facility] insulin NPH 2018- Yes [id number] Inject SQ [facility] 100 unit/mL 1-21 16u qam ity o f injection 00:00: and 14u [facility] insulin NPH 2019- Yes [id number] Inject SQ [facility] 100 unit/mL 1-21 16u qam ity o f injection 00:00: and 14u [facility] insulin NPH 2019- Yes [id number] Inject SQ [facility] 100 unit/mL 1-21 16u qam ity o f injection 00:00: and 14u [facility] insulin NPH 2019- Yes [id number] Inject SQ [facility] 100 unit/mL 1-21 16u qam ity o f injection 00:00: and 14u [facility] insulin NPH 2019- Yes [id number] Inject SQ [facility] 100 unit/mL 1-21 16u qam ity o f injection 00:00: and 14u [facility] insulin NPH 2019- Yes [id number] Inject SQ [facility] 100 unit/mL 1-21 16u qam ity o f injection 00:00: and 14u [facility] insulin NPH 2019- Yes [id number] Inject SQ [facility] 100 unit/mL 1-21 16u qam ity o f injection 00:00: and 14u [facility] insulin NPH 2019- Yes [id number] Inject SQ [facility] 100 unit/mL 06-11 16u qam ity o f injection 00:00: and 14u [place] 00 qpm Medical Branch insulin NPH 2018-05 2020- No [id number] Inject SQ [facility] 100 unit/mL 06-1102 16u qam ity of injection 00:00: 00:00 and 14u [place] 00 :[place] qpm [facility] levoFLOXaci 2018-05 2020- No [id number] 500mg Take 1 Univers n 500 mg 06-11 [id number] tablet by ity of tablet 00:00: 00:00 mouth [place] 00 :00 every 24 Medical (twenty-fo Branch ur) hours. HYDROcodone Yes [id number] 1{tbl} Take 1 Univers -acetaminop 9-26 tablet by ity of hen (NORCO) 00:00: mouth [place] 5-325 mg 00 every 6 Medical tablet (six) Branch hours as needed for Pain (scale 7-10). HYDROcodone Yes [id number] 1{tbl} Take 1 Univers -acetaminop 9-26 tablet by ity of hen (NORCO) 00:00: mouth [place] 5-325 mg 00 every 6 Medical tablet (six) Branch hours as needed for Pain (scale 7-10). HYDROcodone Yes [id number] 1{tbl} Take 1 Univers -acetaminop 9-26 tablet by ity of hen (NORCO) 00:00: mouth [place] 5-325 mg 00 every 6 Medical tablet (six) Branch hours as needed for Pain (scale 7-10). HYDROcodone Yes [id number] 1{tbl} Take 1 Univers -acetaminop 9-26 tablet by ity of hen (NORCO) 00:00: mouth [place] 5-325 mg 00 every 6 Medical tablet (six) Branch hours as needed for Pain (scale 7-10). HYDROcodone Yes [id number] 1{tbl} Take 1 Univers -acetaminop 9-26 tablet by ity of hen (NORCO) 00:00: mouth [place] 5-325 mg 00 every 6 Medical tablet (six) Branch hours as needed for Pain (scale 7-10). HYDROcodone Yes [id number] 1{tbl} Take 1 Univers -acetaminop 9-26 tablet by ity of hen (NORCO) 00:00: mouth [place] 5-325 mg 00 every 6 Medical tablet (six) Branch hours as needed for Pain (scale 7-10). HYDROcodone 2020- No [id number] 1{tbl} Take 1 Univers -acetaminop 02-14- tablet by it y of hen (NORCO) 00:00: 00:00 mouth [place] 5-325 mg 00 :00 every 6 Medical tablet (six) Branch hours as needed for Pain (scale 7-10). aspirin 81 2020- No [id number] 81mg Take 1 Univers mg chewable 02-11 07 tablet by it y of tablet 00:00: 00:00 mouth at [place] 00 :00 bedtime. Medical Branch ondansetron 2018- No 4mg 4 mg, Slow Univers (ZOFRAN 02-06 IV Push, ity of (PF)) 01:15: 00:16 ONCE, 1 [place] injection 4 00 :00 dose, Tu Med ical mg 02/05/19 at Branch 2014, PIERRE morpHINE 2019- No 4mg 4 mg, Slow [place] injection 4 02-06 IV Push, ity of mg 01:15: 00:16 ONCE, 1 [place] 00 :00 dose, Tue Medical 02/05/19 at Branch 2014, STAT acetaminoph 2018- Yes [id number] 1{tbl} Take 1 Univers en-codeine 9-17 tablet by ity of 300-30 mg 00:00: mouth [place] tablet 00 every 4 Medical (four) Branch hours as needed for Pain (scale 4-6). acetaminoph Yes [id number] 1{tbl} Take 1 Univers en-codeine 9-17 tablet by ity of 300-30 mg 00:00: mouth [place] tablet 00 every 4 Medical (four) Branch hours as needed for Pain (scale 4-6). GABAPENTIN 2019- Yes 800mg Take 800 Un [place] ORAL 9-10 mg by ity of 19:55: mouth 2 [place] 30 (two) Medical times Branch daily. venlafaxine 2018- Yes 75mg Take 75 mg Univers 75 [...] mouth 2 [place] 30 (two) Medical times [place] daily. venlafaxine 2019-0 Yes 75mg Take 75 [...] mouth 2 [place] 30 (two) Medical times [place] daily. venlafaxine 2019-0 Yes 75mg Take 75 [...] mouth 2 [place] 30 (two) Medical times [place] daily. venlafaxine 2019-0 Yes 75mg Take 75 [...] 00 :00 dose, Tu Medical 01/29/19 at [place] 0730, Routine ticagrelor 2019-0 Yes 90mg 90 mg, Unive rs (BRILINTA) 9-10 Oral, BID, ity of tablet 90 01:00: First dose [place] mg 00 on Mon [facility] 01/28/19 at Branch 2000, Until Discontinu ed, Routine metoprolol 2018-0 Yes [id number] 25mg Take 1 Univers succinate 9-10 07 tablet by ity o f XL 25 mg 24 00:00: mouth 2 [place] hr tablet 00 (two) Medical times [place] daily. aspirin 81 2018- Yes [id number] 81mg Take 1 Univers mg chewable 9-10 07 tablet by ity of tablet 00:00: mouth at [place] 00 bedtime. Medical Branch ticagrelor 2018- Yes [id number] 90mg Take 1 Univers 90 mg 9-10 07 tablet by ity of tablet 00:00: mouth 2 [place] 00 (two) Medical times Branch daily. metoprolol 2018- Yes [id number] 25mg Take 1 Univers succinate 9-10 07 tablet by ity o f XL 25 mg 24 00:00: mouth 2 [place] hr tablet 00 (two) Medical times [place] daily. aspirin 81 2018- Yes [id number] 81mg Take 1 Univers mg chewable 9-10 07 tablet by ity of tablet 00:00: mouth at [place] 00 bedtime. Medical Branch ticagrelor 2018- Yes [id number] 90mg Take 1 Univers 90 mg 9-10 07 tablet by ity of tablet 00:00: mouth 2 [place] 00 (two) Medical times [place] daily. metoprolol 2018- Yes [id number] 25mg Take 1 Univers succinate 9-10 07 tablet by ity o f XL 25 mg 24 00:00: mouth 2 [place] hr tablet 00 (two) Medical times [place] daily. aspirin 81 2018- Yes [id number] 81mg Take 1 Univers mg chewable 9-10 07 tablet by ity of tablet 00:00: mouth at [place] 00 bedtime. Medical Branch ticagrelor Yes [id number] 90mg Take 1 Univers 90 mg 9-10 07 tablet by ity of tablet 00:00: mouth 2 [place] 00 (two) Medical times [place] daily. metoprolol 2018- Yes [id number] 25mg Take 1 Univers succinate 9-10 07 tablet by ity o f XL 25 mg 24 00:00: mouth 2 [place] hr tablet 00 (two) Medical times [place] daily. aspirin 81 2018- Yes [id number] 81mg Take 1 Univers mg chewable 9-10 07 tablet by ity of tablet 00:00: mouth at [place] 00 bedtime. Medical Branch ticagrelor 2018- Yes [id number] 90mg Take 1 Univers 90 mg 9-10 07 tablet by ity of tablet 00:00: mouth 2 [place] 00 (two) Medical times Branch daily. metoprolol 2019- No [id number] 25mg Take 1 Univers succinate 9-10 -05 07 tablet by ity of XL 25 mg 24 00:00: 00:00 mouth 2 [place] hr tablet 00 :00 (two) Medical times Branch daily. ticagrelor 2019- No [id number] 90mg Take 1 Univers 90 mg 9-10 -05 07 tablet by ity of tablet 00:00: 00:00 mouth 2 [place] 00 :00 (two) Medical times Branch daily. atorvastati 2019- No [id number] 80mg Take 1 Univers n 80 mg 9-10 12-10 100 tablet by ity of tablet 00:00: 05:59 mouth at [place] 00 :00 bedtime Medical for 90 Branch days. atorvastati 2019- No [id number] 80mg Take 1 Univers n 80 mg 9-10 12-10 100 tablet by ity of tablet 00:00: 05:59 mouth at [place] 00 :00 bedtime Medical for 90 Branch days. atorvastati 2019- No [id number] 80mg Take 1 Univers n 80 mg 9-10 12-10 100 tablet by ity of tablet 00:00: 05:59 mouth at [place] 00 :00 bedtime Medical for 90 Branch days. atorvastati 2019- No [id number] 80mg Take 1 Univers n 80 mg 9-10 12-10 100 tablet by ity of tablet 00:00: 05:59 mouth at [place] 00 :00 bedtime Medical for 90 Branch days. morpHINE 2018- 2019- No 2mg 2 mg, Slow [place] injection 2 01-28 IV Push, ity of mg 22:15: 21:14 ONCE, 1 [place] 00 :00 dose, [facility] Medical 01/28/19 at Branch 1715, Routine tirofiban [...] Medical Starting Branch 01/28/19 at 1421, Until Mon01/28/19 at 1421, Routine FENTanyl PF 2018- No [...] Until 01/28/19 at 1224, Routine FENTanyl PF 2019-0 2019- No Slow IV Un [place] (SUBLIMAZE 01-28 Push, ity of (PF)) 16:47: 16:47 TITRATE - [place] injection 00 :00 FOR Medical PROCEDURE Branch USE, 1 dose, Starting 01/28/19 at 1147, Until [facility] 01/28/19 at 1147, Routine midazolam 2018- No IV Push, Uni vers (VERSED) 01-28 TITRATE - ity o f injection 16:47: 16:47 FOR [place] 00 :00 PROCEDURE Medical USE, 1 Branch dose, Starting 01/28/19 at 1147, Until [facility] 01/28/19 at 1147, Routine clopidogrel 2019- No Oral, PRN, Univers (PLAVIX) 01-28 Starting ity of tablet 16:32: 16:32 01/28/19 [place] 09 :09 at 1132, Medical Until [facility] Branch 01/28/19 at 1132, Routine NaCl 0.9% 2019- No 1000mL at 75 Univ ers (NS) IV 01-27 mL/hr, IV ity of infusion 14:30: 03:23 Infusion, [place] 1,000 mL 00 :00 ONCE, 1 Medical dose, [facility] 01/27/19 at 0930, Routine magnesium Yes 800mg 800 mg, Univ ers oxide 01-27 Oral, ity of (MAG-OX 14:00: DAILY, [place] 400) 40 00 First dose Medica l mg/mL oral on [place] Branch suspension 01/27/19 at 800 mg 0900, Until Discontinu ed, Routine proMETHazin 2018- No 25mg 25 mg, IV Univers e 01-26 0907 Piggyback, ity of (PHENERGAN) 19:30: 19:43 ONCE [...] 2100, Until Discontinu ed, Routine clopidogrel 2018- No 75mg 75 mg, Uni vers (PLAVIX) 01-26 Oral, QHS, ity of tablet 75 02:00: 19:44 First dose [place] mg 00 :34 on Mon [facility] 01/25/19 at Branch 2100, Until Discontinu ed, Routine insulin NPH Yes 12U 12 Units, U nivers (HUMULIN N) 01-25 Subcutaneo it y of injection 22:00: us, QPM, [place] 12 Units 00 First dose Medic al on Mon [place] 01/25/19 at 1700, Until Discontinu ed, Routine clopidogrel 2018- No 600mg 600 mg, U nivers (PLAVIX) 01-25 Oral, ity of tablet 600 15:04: 15:31 ONCE, 1 [place] mg 00 :00 dose, [facility] 01/25/19 at Branch 1015, PIERRE
Fa culty member approving Restricted medication : DENNIS FINLEY insulin NPH Yes 14U 14 Units, U nivers (HUMULIN N) 01-25 Subcutaneo it y of injection 14:00: us, QAM, [place] 14 Units 00 First dose Medic al on Mon [place] 01/25/19 at 0900, Until Discontinu ed, Routine pantoprazol Yes 40mg 40 mg, Univ ers e 01-25 Oral, ity of (PROTONIX) 14:00: DAILY, [place] EC tablet 00 First dose Medi uriel 40 mg on Mon [place] 01/25/19 at 0900, Until Discontinu ed, Routine [...] 00 First dose Medi uriel mcg on [facility] 01/25/19 at 0600, Until Discontinu ed, Routine KCL No 40meq 40 mEq, IV Unive rs (POTASSIUM 01-25 Piggyback, it y of CHLORIDE) 09:06: 11:25 ONCE, 1 [place] 40 mEq in 00 :00 dose, [facility] [place] [facility] Medic al NaCl 0.9% 01/25/19 at [facility] h (NS) 0415, 250 piggyback mL KCL No 40meq 40 mEq, Univers (KLOR-CON 01-25 Oral, ity of M20) tablet 09:05: 09:16 ONCE, 1 [place] 40 mEq 00 :00 dose, [facility] 01/25/19 at [place] 0415, Routine magnesium No 4g 4 g, IV Univ ers sulfate in 01-2508 Piggyback, it y of water 4 05:27: 01:22 ONCE, 1 [place] gram/50 mL 00 :00 dose, [facility] [place] [facility] Medi uriel (8 %) IV 01/25/19 at [place] Piggyback 4 0030, g Routine morpHINE Yes 2mg 2 mg, Slow Uni vers injection 2 01-25 IV Push, ity of mg 05:04: Q4HPRN, [address] Medical [facility] [place] [facility] 01/25/19 [place] at 0004, Until Discontinu ed, Routine, Pain (scale 7-10) Polyethylen Yes 17g 17 g, Unive rs e Glycol 01-25 Oral, BID, ity o f 3350 04:30: First dose [place] (MIRALAX) 00 on Mon Medical powder 17 g 01/24/19 at [facility] 2330, Until Discontinu ed, Routine docusate Yes 100mg 100 mg, Unive rs (COLACE) 01-25 Oral, ity of capsule 100 04:30: DAILY, [place] mg 00 First dose Medical on [facility] 01/24/19 at 2330, Until Discontinu ed, Routine clopidogrel 2018- No 75mg 75 mg, Uni vers (PLAVIX) 01-25 Oral, ity of tablet 75 04:20: 05:27 ONCE, 1 [place] mg 00 :00 dose, [facility] Medical 01/24/19 at Branch 2330, PIERRE aspirin 2018- 2019- No 81mg 81 mg, Univers chewable 01-25 Oral, ONCE ity of tablet 81 04:20: 05:27 NOW, 1 [place] mg 00 :00 dose, [facility] 01/24/19 at Branch 2330, PIERRE Sliding 2019-0 Yes Subcutaneo Univ ers Scale -06 us, AC+HS, ity of Insulin - 04:15: First dose [place] Aspart 00 on [facility] Medical (NOVOLOG) + 01/24/19 at [facility] Fsbg 2315, Testing Until Discontinu ed, Routine traMADOL 50 2018- 2019- No 50mg Take 50 mg Univers mg tablet 01-25 by mouth ity o f 04:14: 00:00 every 6 [place] 44 :00 (six) Medical hours as Branch needed. acetaminoph 2018- Yes 650mg 650 mg, Un char[place] en 01-25 Oral, ity of (TYLENOL) 04:08: Q6HPRN, [place] tablet 650 45 Starting Medic al mg [facility] 01/24/19 Branch at 2308, Until Discontinu ed, Routine, Pain (scale 1-3) morpHINE 2018- 2019- No 2mg 2 mg, Slow [place] injection 2 01-25 IV Push, ity of mg 03:50: 03:54 ONCE, 1 [place] 00 :00 dose, [facility] 01/24/19 at Branch 2300, Routine morpHINE 2019- No 4mg 4 mg, Slow [place] injection 4 01-25 IV Push, ity of mg 00:45: 23:52 ONCE, 1 [place] 00 :00 dose, [facility] 01/24/19 at Branch 1945, STAT ondansetron 2018- 2019- No 4mg 4 mg, Slow Univers (ZOFRAN 01-25 IV Push, ity of (PF)) 00:45: 23:51 ONCE, 1 [place] injection 4 00 :00 dose, [facility] Med ical mg 01/24/19 at Branch 1945, PIERRE heparin 2018- 2019- No 12U/kg/ 12 Univer s 25,000 01-25-09 h Units/kg/h ity of unit/250 mL 00:30: 21:38 r ?79.4 kg [place] (Premixed 00 :10 (9.528 Medical Bag) in mL/hr, [place] NaCl 0.45 % rounded to weight 9.53 based mL/hr), IV dosing [facility] Infusion, protocol CONTINUOUS , Starting [facility] 01/24/19 at 1930, Until 01/28/19 at 1638 aspirin 2018- 2019- No 325mg 325 mg, Unive rs tablet 325 01-25 Oral, ity of mg 00:15: 23:28 ONCE, 1 [place] 00 :00 dose, [facility] Medical 01/24/19 at Branch 1915, STAT heparin 2018- 2019- No 4000U 4,000 Univers 1000 01-24 Units, IV ity of unit/mL 23:15: 23:33 Push, [place] injection 00 :00 ONCE, 1 [facility] Soln 4,000 dose, [facility] Bran ch Units 01/24/19 at 1815, PIERRE iohexol 2019- No 120mL 120 mL, Unive rs (OMNIPAQUE 01-24 Intravenou it y of 350 23:00: 22:45 s, ONCE, 1 [place] BULK-150 00 :00 dose, [facility] Medica l mL) 01/24/19 at [place] injection 1800, 120 mL Routine morpHINE 2019- No 4mg 4 mg, Slow [place] injection 4 01-24 IV Push, ity of mg 22:45: 21:57 ONCE, 1 [place] 00 :00 dose, [facility] 01/24/19 at Branch 1745, STAT traMADOL 50 2019-0 Yes 50mg Take 50 mg Univers mg tablet 8-31 by mouth ity of 19:37: every 6 [place] [id number] (six) Medical hours as Branch needed. GABAPENTIN 2019-0 Yes 800mg Take 800 [place] ORAL 8-31 mg by ity of 19:37: mouth 2 [place] 01 (two) Medical times Branch daily. venlafaxine 2019-0 Yes 75mg Take 75 mg Univers 75 mg 8-31 by mouth 2 ity of tablet 19:37: (two) [place] [id number] times Medical daily. Branch levothyroxi 2019-0 Yes 50ug Take 50 Uni vers ne 50 mcg 8-31 mcg by ity of tablet 19:37: mouth [place] [id number] every Medical morning. Branch traMADOL 50 2019-0 [...] 2120, Until Discontinu ed, STAT NaCl 0.9% 2019- No IV Univers (NS) bolus 01-19 Piggyback, it y of infusion 02:10: 02:10 CONTINUOUS [place] 00 :00 PRN, Medical Starting Branch Mon01/18/19 at 2110, Until Mon01/18/19 at 0, STAT FENTanyl PF 2019- No Slow IV [...] Until Mon01/18/19 at 2026, Routine metoprolol Yes [id number] 25mg Take 1 [place] succinate 8-31 tablet by ity o f XL 25 mg 24 00:00: mouth 2 [place] hr tablet 00 (two) Medical times Branch daily. clopidogrel 2018- Yes [id number] 75mg Take 1 Univers (PLAVIX) 75 8-31 100 tablet by ity of mg tablet 00:00: mouth [place] 00 daily. Medical Branch atorvastati Yes [id number] 80mg Take 1 Univers n 80 mg 8-31 100 tablet by ity of tablet 00:00: mouth at [place] 00 bedtime. Medical Branch aspirin 81 2018- Yes [id number] 81mg Take 1 Univers mg EC 8-31 100 tablet by ity of tablet 00:00: mouth [place] 00 daily. Medical Branch metoprolol Yes [id number] 25mg Take 1 [place] succinate 8-31 tablet by ity o f XL 25 mg 24 00:00: mouth 2 [place] hr tablet 00 (two) Medical times Branch daily. clopidogrel Yes [id number] 75mg Take 1 Univers (PLAVIX) 75 8-31 100 tablet by ity of mg tablet 00:00: mouth [place] 00 daily. Medical Branch atorvastati Yes [id number] 80mg Take 1 Univers n 80 mg 8-31 100 tablet by ity of tablet 00:00: mouth at [place] 00 bedtime. Medical Branch aspirin 81 Yes [id number] 81mg Take 1 Univers mg EC 8-31 100 tablet by ity of tablet 00:00: mouth [place] 00 daily. Medical Branch metoprolol Yes [id number] 25mg Take 1 [place] succinate 8-31 tablet by ity o f XL 25 mg 24 00:00: mouth 2 [place] hr tablet 00 (two) Medical times Branch daily. clopidogrel Yes [id number] 75mg Take 1 Univers (PLAVIX) 75 8-31 100 tablet by ity of mg tablet 00:00: mouth [place] 00 daily. Medical Branch atorvastati Yes [id number] 80mg Take 1 Univers n 80 mg 8-31 100 tablet by ity of tablet 00:00: mouth at [place] 00 bedtime. Medical Branch aspirin 81 Yes [id number] 81mg Take 1 Univers mg EC 8-31 100 tablet by ity of tablet 00:00: mouth [place] 00 daily. Medical Branch metoprolol 2019- No [id number] 25mg Take 1 U nivers succinate 01-1910 tablet by ity of XL 25 mg 24 00:00: 00:00 mouth 2 [place] hr tablet 00 :00 (two) Medical times Branch daily. clopidogrel 2018- 2019- No [id number] 75mg Take 1 Univers (PLAVIX) 75 - 0910 100 tablet by it y of mg tablet 00:00: 00:00 mouth [place] 00 :00 daily. Medical Branch atorvastati 2019- No [id number] 80mg Take 1 Univers n 80 mg -01-29 100 tablet by ity of tablet 00:00: 00:00 mouth at [place] 00 :00 bedtime. Medical Branch aspirin 81 2019- No [id number] 81mg Take 1 Univers mg EC 01-19 100 tablet by ity of tablet 00:00: 00:00 mouth [place] 00 :00 daily. Medical Branch insulin NPH Yes 12U 12 Units, U nivers and regular 830 Subcutaneo it y of human 7030 23:00: , [place] (HUMULIN 00 DINNER, Medical 70-30 U-100 First dose Br anch INSULIN) on Fri 100 unit/mL 01/18/19 at (70-30) 1800, injection Until 12 Units Discontinu ed, PIERRE clopidogrel 2019- No 300mg 300 mg, U nivers (PLAVIX) 01-18 Oral, ity of tablet 300 17:15: 19:07 ONCE, 1 [place] mg 00 :00 dose, Fri Medical 01/18/19 at Branch 1215, [facility] psyllium Yes 1{packe 1 Packet, U nivers (METAMUCIL 01-18 t} Oral, ity of FIBER 14:00: DAILY, [place] SINGLES) 00 First dose Medic al 3.4 gram on Fri Branch packet 1 01/18/19 at Packet 0900, Until Discontinu ed, Routine insulin NPH Yes 16U 16 Units, U nivers and regular 01-18 Subcutaneo it y of human 7030 13:00: us, [facility] Juan J as (HUMULIN 00 WITH Medical [...] Medical 01/18/19 at Branch 0615, Routine magnesium 2018- No 2g 2 g, IV Univ ers sulfate in 01-18 Piggyback, it y of water 2 11:15: [...] ity of 3350 05:21: 05:40 ONCE, 1 [place] (MIRALAX) 00 :00 dose, Fri Medic al powder 17 g 01/18/19 at Br anch 0030, Routine acetaminoph Yes 650mg 650 mg, Un charley en 01-18 Oral, ity of (TYLENOL) 00:02: Q6HPRN, [place] tablet 650 43 Starting Medic al mg Annie Branch 01/17/19 at 1902, Until Discontinu ed, Routine, Pain (scale 1-3) NaCl 0.9% 2019- No 500mL at 999 Univ ers (NS) bolus 01-17 mL/hr, 500 it y of infusion 17:45: 16:43 mL, IV [place] 500 mL 00 :00 Piggyback, Medical ONCE, 1 Branch dose, [place] 01/17/19 at 1245, STAT pantoprazol 2018- Yes 40mg 40 mg, Univ ers e 01-17 Oral, ity of (PROTONIX) 14:00: DAILY, [place] EC tablet 00 First dose Medi uriel 40 mg on [place] Branch 01/17/19 at 0900, Until Discontinu ed, Routine enoxaparin 2018- Yes 40mg 40 mg, Unive rs (LOVENOX) 01-17 Subcutaneo ity of injection 14:00: us, DAILY, [place] 40 mg 00 First dose Medical on [place] Branch 01/17/19 at 0900, Until Discontinu ed, Routine clopidogrel Yes 75mg 75 mg, [facility] ers (PLAVIX) 01-17 Oral, ity of tablet 75 14:00: DAILY, [place] mg 00 First dose Medical on [facility] 01/17/19 at 0900, Until Discontinu ed, Routine docusate 2019- No 100mg 100 mg, [facility] ers (COLACE) 01-17 Oral, BID, ity of capsule 100 13:00: 05:16 First dose [place] mg 00 :46 on [facility] 01/17/19 at Branch 0800, Until Discontinu ed, Routine insulin NPH 2019- No 16U 16 Units, Univers and regular 01-17 Subcutaneo i ty of human 70-30 13:00: 05:19 us, QA [place] (HUMULIN 00 :12 WITH Medical 70-30 U-100 BREAKFAST, Br anch INSULIN) First dose 100 unit/mL on [facility] (70-30) 01/17/19 at injection 0800, 16 Units Until Discontinu ed, Routine morpHINE 2018- Yes 2mg 2 mg, Slow Uni vers injection 2 01-17 IV Push, ity of mg 12:43: Q4HPRN, [place] [address] [facility] 01/17/19 at 0743, Until Discontinu ed, Routine, Breakthrou gh Pain (scale 4-10), Chest pain glipiZIDE 2018- No 5mg 5 mg, Univer s (GLUCOTROL) 01-17 Oral, ity of tablet 5 mg 12:30: 05:07 BIDAC, [place] 00 :51 First dose Medical on [facility] 01/17/19 at 0730, Until Discontinu ed, Routine levothyroxi Yes 50ug 50 mcg, Uni vers ne 01-17 Oral, ity of (SYNTHROID) 11:00: QAM-0600, [place] tablet 50 00 First dose Medi uriel mcg on [facility] 01/17/19 at 0600, Until Discontinu ed, Routine Sliding Yes Subcutaneo [facility] ers Scale 01-17 us, Q4H, ity of Insulin - 09:00: First dose [place] Aspart 00 on [facility] (NOVOLOG) + 01/17/19 at Br anch Fsbg 0400, Testing Until Discontinu ed, Routine gabapentin Yes 300mg 300 mg, Uni vers (NEURONTIN) 01-17 Oral, TID, it y of capsule 300 08:45: First dose [place] mg 00 on [facility] 01/17/19 at Branch 0345, Until Discontinu ed, Routine traMADol Yes 50mg 50 mg, Univers (ULTRAM) 01-17 Oral, ity of tablet 50 08:32: Q8HPRN, [place] mg 58 Starting Medical [facility] Branch 01/17/19 at 0332, Until Discontinu ed, Routine, Pain (scale 4-6), Pain (scale 7-10) ondansetron 2018- Yes 4mg 4 mg, Slow Univers (ZOFRAN 01-17 IV Push, ity of (PF)) 08:32: Q6HPRN, [place] injection 4 00 [address] mg [facility] 01/17/19 at 0332, Until Discontinu ed, Routine, Nausea and Vomiting (N/V) glucagon Yes 1mg 1 mg, Univers (GLUCAGEN 01-17 Intramuscu ity of DIAGNOSTIC 08:30: lar, PRN, [place] KIT) 47 Starting Medical injection 1 Annie [place] mg 01/17/19 at 0330, Until Discontinu ed, PIERRE, Blood Glucose < or = 70 mg/dL and patient is unable to swallow or has mental changes. dextrose 50 Yes 25mL 25 mL, Univ ers % in water 01-17 Slow IV ity of (D50W) 08:30: Push, PRN, [place] injection 47 Starting Medica l [address] [facility] 01/17/19 at 0330, Until Discontinu ed, PIERRE, Blood Glucose < or = 70 mg/dL and patient is unable to swallow or has mental status changes. metoprolol Yes 25mg 25 mg, Unive rs succinate 01-17 Oral, BID, ity of XL (TOPROL 08:30: First dose [place] XL) tablet 00 on [facility] 25 mg 01/17/19 at Branch 0330, Until Discontinu ed, PIERRE atorvastati Yes 80mg 80 mg, Univ ers n (LIPITOR) 01-17 Oral, QHS, it y of tablet 80 08:30: First dose [place] mg 00 on [facility] 01/17/19 at Branch 0330, Until Discontinu ed, Routine aspirin 2018- Yes 81mg 81 mg, Univers chewable 01-17 [...] 0330, Until Discontinu ed, Routine FENTanyl PF 2018- No 50ug 50 mcg, Un [facility] (SUBLIMAZE [...] ed, PIERRE, Chest pain insulin NPH Yes [id number] 14U inject 14 Univers 100 unit/mL 5-15 Units ity of injection 00:00: under the [place] as 00 skin every Medical morning. Branch insulin NPH Yes [id number] 14U inject 14 [facility] 100 unit/mL 5-15 Units ity of injection 00:00: under the [place] 00 skin every Medical morning. Branch insulin NPH Yes [id number] 14U inject 14 [facility] 100 unit/mL 5-15 Units ity of injection 00:00: under the [place] 00 skin every Medical morning. Branch insulin NPH Yes [id number] 14U inject 14 [facility] 100 unit/mL 5-15 Units ity of injection 00:00: under the [place] 00 skin every Medical morning. Branch insulin NPH Yes [id number] 14U inject 14 [facility] 100 unit/mL 5-15 Units ity of injection 00:00: under the [place] 00 skin every Medical morning. Branch insulin NPH Yes [id number] 14U inject 14 [facility] 100 unit/mL 5-15 Units ity of injection 00:00: under the [place] 00 skin every Medical morning. Branch insulin NPH Yes [id number] 14U inject 14 [facility] 100 unit/mL 5-15 Units ity of injection 00:00: under the [place] 00 skin every Medical morning. Branch insulin Yes [id number] 6U inject 6 U nivers regular 5-14 Units ity of human 100 00:00: under the [place] unit/mL 00 skin 2 Medical injection (two) Branch times daily before breakfast and dinner. insulin Yes [id number] 6U inject 6 U nivers regular 5-14 Units ity of human 100 00:00: under the [place] unit/mL 00 skin 2 Medical injection (two) Branch times daily before breakfast and dinner. insulin 2018- Yes [id number] 6U inject 6 U nivers regular 5-14 Units ity of human 100 00:00: under the [place] unit/mL 00 skin 2 Medical injection (two) Branch times daily before breakfast and dinner. insulin 2018- Yes [id number] 6U inject 6 U nivers regular 5-14 Units ity of human 100 00:00: under the [place] unit/mL 00 skin 2 Medical injection (two) Branch times daily before breakfast and dinner. insulin 2018-0 Yes [id number] 6U inject 6 U nivers regular 5-14 Units ity of human 100 00:00: under the [place] unit/mL 00 skin 2 Medical injection (two) Branch times daily before breakfast and dinner. metformin 0 Yes [id number] 750mg Take 1 [facility] ER 750 mg 5-14 tablet by ity o f 24 hr 00:00: mouth 2 [place] tablet 00 (two) Medical times Branch daily. insulin NPH Yes [id number] 12U inject 12 [facility] 100 unit/mL 5-14 Units ity of injection 00:00: under the [place] 00 skin every Medical evening. Branch insulin 2018-0 Yes [id number] 6U inject 6 U nivers regular 5-14 Units ity of human 100 00:00: under the [place] unit/mL 00 skin 2 Medical injection (two) Branch times daily before breakfast and dinner. metformin 2018-0 Yes [id number] 750mg Take 1 [facility] ER 750 mg 5-14 tablet by ity o f 24 hr 00:00: mouth 2 [place] tablet 00 (two) Medical times Branch daily. insulin NPH 2018-0 Yes [id number] 12U inject 12 [facility] 100 unit/mL 5-14 Units ity of injection 00:00: under the [place] 00 skin every Medical evening. Branch insulin 2018-0 Yes [id number] 6U inject 6 U nivers regular 5-14 Units ity of human 100 00:00: under the [place] unit/mL 00 skin 2 Medical injection (two) Branch times daily before breakfast and dinner. metformin 2019-0 Yes [id number] 750mg Take 1 [facility] ER 750 mg 5-14 tablet by ity o f 24 hr 00:00: mouth 2 [place] tablet 00 (two) Medical times Branch daily. insulin NPH 2018-0 Yes [id number] 12U inject 12 [facility] 100 unit/mL 5-14 Units ity of injection 00:00: under the [place] as 00 skin every Medical evening. Branch insulin 2018-0 Yes [id number] 6U inject 6 U nivers regular 5-14 Units ity of human 100 00:00: under the [place] unit/mL 00 skin 2 Medical injection (two) Branch times daily before breakfast and dinner. insulin 2018-0 Yes [id number] 6U inject 6 U nivers regular 5-14 Units ity of human 100 00:00: under the [place] unit/mL 00 skin 2 Medical injection (two) Branch times daily before breakfast and dinner. insulin 2018-0 Yes [id number] 6U inject 6 U nivers regular 5-14 Units ity of human 100 00:00: under the [place] unit/mL 00 skin 2 Medical injection (two) Branch times daily before breakfast and dinner. insulin 2018-0 Yes [id number] 6U inject 6 U nivers regular 5-14 Units ity of human 100 00:00: under the [place] unit/mL 00 skin 2 Medical injection (two) Branch times daily before breakfast and dinner. insulin 2018-0 Yes [id number] 6U inject 6 U nivers regular 5-14 Units ity of human 100 00:00: under the [place] unit/mL 00 skin 2 Medical injection (two) Branch times daily before breakfast and dinner. insulin 2018-0 Yes [id number] 6U inject 6 U nivers regular 5-14 Units ity of human 100 00:00: under the [place] unit/mL 00 skin 2 Medical injection (two) Branch times daily before breakfast and dinner. insulin 2020- No [id number] 6U inject 6 Univers regular -14 02-27 Units ity of human 100 00:00: 00:00 under the [place] unit/mL 00 :00 skin 2 Medical injection (two) Branch times daily before breakfast and dinner. insulin NPH 2019- No [id number] 12U inject 12 Univers 100 unit/mL 10-02 09-10 Units ity of injection 00:00: 00:00 under the [place] 00 :00 skin every Medical evening. Branch metformin 2019- No [id number] 750mg Take 1 U nivers ER 750 mg 10-0205 tablet by ity of 24 hr 00:00: 00:00 mouth 2 [place] tablet 00 :00 (two) Medical times Branch daily. nitroglycer Yes [id number] .4mg Place 1 Univers in 0.4 mg 5-01 tablet ity of sublingual 00:00: under the [place] tablet 00 tongue Medical every 5 Branch (five) minutes as needed for Chest pain. nitroglycer Yes [id number] .4mg Place 1 Univers in 0.4 mg 5-01 tablet ity of sublingual 00:00: under the [place] tablet 00 tongue Medical every 5 Branch (five) minutes as needed for Chest pain. nitroglycer Yes [id number] .4mg Place 1 Univers in 0.4 mg 5-01 tablet ity of sublingual 00:00: under the [place] tablet 00 tongue Medical every 5 Branch (five) minutes as needed for Chest pain. nitroglycer Yes [id number] .4mg Place 1 Univers in 0.4 mg 5-01 tablet ity of sublingual 00:00: under the [place] tablet 00 tongue Medical every 5 Branch (five) minutes as needed for Chest pain. nitroglycer Yes [id number] .4mg Place 1 Univers in 0.4 mg 5-01 tablet ity of sublingual 00:00: under the [place] tablet 00 tongue Medical every 5 Branch (five) minutes as needed for Chest pain. nitroglycer Yes [id number] .4mg Place 1 [facility] in 0.4 mg 5-01 tablet ity of sublingual 00:00: under the [place] tablet 00 tongue Medical every 5 Branch (five) minutes as needed for Chest pain. nitroglycer 2019-[id number] 1 Univers in 0.4 mg 5-01 tablet ity of sublingual 00:00: under the [place] tablet 00 tongue Medical every 5 Branch (five) minutes as needed for Chest pain. nitroglycer 2019-[id number] 1 Univers in 0.4 mg 5-01 tablet ity of sublingual 00:00: under the [place] tablet 00 tongue Medical every 5 Branch (five) minutes as needed for Chest pain. nitroglycer 2019-[id number] 1 Univers in 0.4 mg 5-01 tablet ity of sublingual 00:00: under the [place] tablet 00 tongue Medical every 5 Branch (five) minutes as needed for Chest pain. nitroglycer 2019-[id number] 1 [facility] in 0.4 mg 5-01 tablet ity of sublingual 00:00: under the [place] tablet 00 tongue Medical every 5 Branch (five) minutes as needed for Chest pain. nitroglycer 2019-[id number] 1 [facility] in 0.4 mg 5-01 tablet ity of sublingual 00:00: under the [place] tablet 00 tongue Medical every 5 Branch (five) minutes as needed for Chest pain. nitroglycer 2019-[id number] 1 Univers in 0.4 mg 5-01 tablet ity of sublingual 00:00: under the [place] tablet 00 tongue Medical every 5 Branch (five) minutes as needed for Chest pain. nitroglycer 2019-[id number] 1 Univers in 0.4 mg 5-01 tablet ity of sublingual 00:00: under the [place] tablet 00 tongue Medical every 5 Branch (five) minutes as needed for Chest pain. nitroglycer 2019-[id number] 1 Univers in 0.4 mg 5-01 tablet ity of sublingual 00:00: under the [place] tablet 00 tongue Medical every 5 Branch (five) minutes as needed for Chest pain. nitroglycer 2019-[id number] 1 Univers in 0.4 mg 5-01 tablet ity of sublingual 00:00: under the [place] tablet 00 tongue Medical every 5 Branch (five) minutes as needed for Chest pain. nitroglycer 2018-[id number] 1 Univers in 0.4 mg 5-01 tablet ity of sublingual 00:00: under the [place] tablet 00 tongue Medical every 5 Branch (five) minutes as needed for Chest pain. nitroglycer 2018-[id number] 1 Univers in 0.4 mg 5-01 tablet ity of sublingual 00:00: under the [place] tablet 00 tongue Medical every 5 Branch (five) minutes as needed for Chest pain. nitroglycer 2018-[id number] 1 [facility] in 0.4 mg 5-01 tablet ity of sublingual 00:00: under the [place] tablet 00 tongue Medical every 5 Branch (five) minutes as needed for Chest pain. nitroglycer Yes [id number] .4mg Place 1 [facility] in 0.4 mg 5-01 tablet ity of sublingual 00:00: under the [place] tablet 00 tongue Medical every 5 Branch (five) minutes as needed for Chest pain. nitroglycer Yes [id number] .4mg Place 1 Univers in 0.4 mg 5-01 tablet ity of sublingual 00:00: under the [place] tablet 00 tongue Medical every 5 Branch (five) minutes as needed for Chest pain. nitroglycer Yes [id number] .4mg Place 1 Univers in 0.4 mg 5-01 tablet ity of sublingual 00:00: under the [place] tablet 00 tongue Medical every 5 Branch (five) minutes as needed for Chest pain. pantoprazol 2018- Yes [id number] 40mg Take 1 Univers e 40 mg EC 5-01 100 tablet by ity of tablet 00:00: mouth [place] 00 daily. Medical Branch nitroglycer 2018-[id number] 1 Univers in 0.4 mg 5-01 tablet ity of sublingual 00:00: under the [place] tablet 00 tongue Medical every 5 Branch (five) minutes as needed for Chest pain. pantoprazol 2019- Yes [id number] 40mg Take 1 Univers e 40 mg EC 5-01 100 tablet by ity of tablet 00:00: mouth [place] 00 daily. Medical Branch nitroglycer 2019-[id number] 1 [facility] in 0.4 mg 5-01 tablet ity of sublingual 00:00: under the [place] tablet 00 tongue Medical every 5 Branch (five) minutes as needed for Chest pain. pantoprazol Yes [id number] 40mg Take 1 Univers e 40 mg EC 5-01 100 tablet by ity of tablet 00:00: mouth [place] 00 daily. Medical Branch nitroglycer Yes [id number] .4mg Place 1 Univers in 0.4 mg 5-01 tablet ity of sublingual 00:00: under the [place] tablet 00 tongue Medical every 5 Branch (five) minutes as needed for Chest pain. nitroglycer Yes [id number] .4mg Place 1 Univers in 0.4 mg 5-01 tablet ity of sublingual 00:00: under the [place] tablet 00 tongue Medical every 5 Branch (five) minutes as needed for Chest pain. nitroglycer Yes [id number] .4mg Place 1 Univers in 0.4 mg 5-01 tablet ity of sublingual 00:00: under the [place] tablet 00 tongue Medical every 5 Branch (five) minutes as needed for Chest pain. nitroglycer Yes [id number] .4mg Place 1 [facility] in 0.4 mg 5-01 tablet ity of sublingual 00:00: under the [place] tablet 00 tongue Medical every 5 Branch (five) minutes as needed for Chest pain. nitroglycer Yes [id number] .4mg Place 1 Univers in 0.4 mg 5-01 tablet ity of sublingual 00:00: under the [place] tablet 00 tongue Medical every 5 Branch (five) minutes as needed for Chest pain. nitroglycer Yes [id number] .4mg Place 1 Univers in 0.4 mg 5-01 tablet ity of sublingual 00:00: under the [place] tablet 00 tongue Medical every 5 Branch (five) minutes as needed for Chest pain. nitroglycer 2020- No [id number] .4mg Place 1 Univers in 0.4 mg 5-01 09-16 tablet ity of sublingual 00:00: 00:00 under the [place] tablet 00 :00 tongue Medical every 5 Branch (five) minutes as needed for Chest pain. pantoprazol 2019- No [id number] 40mg Take 1 Univers e 40 mg EC 09-19 100 tablet by ity of tablet 00:00: 00:00 mouth [place] 00 :00 daily. Medical Branch magnesium 2018- Yes [id number] 800mg Take 2 [facility] [place] oxide 400 4-15 capsules ity of mg capsule 00:00: by mouth [place] as 00 daily. Medical Branch magnesium 2018- Yes [id number] 800mg Take 2 [place] oxide 400 4-15 capsules ity of mg capsule 00:00: by mouth [place] 00 daily. Medical Branch magnesium Yes [id number] 800mg Take 2 [place] oxide 400 4-15 capsules ity of mg capsule 00:00: by mouth [place] 00 daily. Medical Branch magnesium 2018- No [id number] 800mg Take 2 U nivers oxide 400 4-15 -05 capsules ity o f mg capsule 00:00: 00:00 by mouth [place] 00 :00 daily. Medical Branch atorvastati 2019- No [id number] 80mg Take 1 Univers n 80 mg 07-17 100 tablet by ity of tablet 00:00: 00:00 mouth at [place] 00 :00 bedtime. Medical Branch clopidogrel 2019- No [id number] 75mg Take 1 Univers (PLAVIX) 75 07-17 100 tablet by it y of mg tablet 00:00: 00:00 mouth [place] 00 :00 daily. Medical Branch aspirin 81 2019- No [id number] 81mg Take 1 Univers mg EC 07-17 100 tablet by ity of tablet 00:00: 00:00 mouth [place] 00 :00 daily. Medical Branch Aspirin 81 Aspirin 81 2018- No Alexis [address] [facility] Mg Tab.chew Mg Tab.chew 10-26 Brooke Frankel - 00:00: 00:00 Patient 00 :00 s [facility] Diflunisal Diflunisal 2016- No Todd Wynn [address] [facility] (Dolobid) (Dolobid) 01-17 [facility] - 500 Mg 500 Mg 00:00: 00:00 Patient Tablet, 500 Tablet, 500 00 :00 s Mg Oral Mg Oral [facility] Ondansetron Ondansetron 2016- No Todd L [address] [facility] Hcl Hcl 01-17 07-05 [place] Hours as Luke s - (Zofran*) 4 (Zofran*) [...] atient Mg Tablet Mg Tablet s Medical Bostic Fenofibrate Fenofibrate Yes [address] [facility] 200 Mg Cap 200 Mg Cap Esme es - Patient [facility] Gabapentin Gabapentin Yes [address] [facility] 800 Mg 800 Mg Hours [facility] - Tablet Tablet [facility] Glipizide 5 Glipizide 5 Yes [address] [facility] Mg Tablet Mg Tablet Day [facility] - Patient [facility] Hydrocodone Hydrocodone Yes [address] [facility] Bit/Acetami Bit/Acetami Hours as [facility] - nophen nophen needed for Patie nt ([place] ([facility] Pain s 10-325 10-325 Medical Tablet) 1 [...] 50 Mcg 50 Mcg Patient Tablet Tablet Medical Bostic Lisinopril Lisinopril Yes 2.[address] 2.5 Mg 2.5 Mg [facility] - Tablet Tablet Patient s [facility] Metformin Metformin Yes [address] [facility] Hcl Hcl Day [facility] - (Glucophage (Glucophage P atient ) 1,000 Mg ) 1,000 Mg s Tablet Tablet [facility] Methadone Methadone Yes 5 Every [address] Hcl 5 Mg Hcl 5 Mg Hours [facility] - Tablet Tablet Patient s [facility] Metoprolol Metoprolol Yes [address] Tartrate 25 Tartrate 25 L ukes - Mg Tablet Mg Tablet Patie nt [facility] Nitroglycer Nitroglycer Yes As Needed [facility] in in [facility] - (Nitrostat) (Nitrostat) P atient 0.4 Mg 0.4 Mg s Tab.subl Tab.[facility] Omeprazole Omeprazole Yes [address] 20 Mg 20 Mg [facility] - Capsule.dr Lind.[facility] Simvastatin Simvastatin Yes [address] 80 Mg 80 Mg [facility] - Tablet Tablet Patient [facility] Tamsulosin Tamsulosin Yes Daily [facility] Hcl 0.4 Mg Hcl 0.4 Mg Esme es - Cap.er.24h Cap.er.24h [facility] Tramadol Tramadol Yes [address] [facility] Hcl Hcl Daily as [facility] - (Ultram) 50 (Ultram) 50 needed for Patient Mg Tablet Mg Tablet Pain [facility] Venlafaxine Venlafaxine Yes [address] [facility] Hcl 75 Mg Hcl 75 Mg [facility] - Tab Tab Patient s [facility] Albuterol Albuterol 2017- No 1 Twice [...] Pa tient Mg Oral Mg Oral :00 [facility] Insulin Insulin 2017- No 40 7AM &Hs [facility] Human Nph Human Nph 10-15 Luke s - (Humulin N) (Humulin N) 00:00 Patient 100 100 :00 s Units/Ml Units/Ml Medical Ml, 40 Ml, 40 Center Sub-Q Sub-Q Naloxone Naloxone No .[address] As Ne[address] [facility] Hcl 0.4 Hcl 0.4 10-15 for [facility] - Mg/1 Ml Mg/1 Ml 00:00 Oversedati Navid blanco Disp.syrin, Disp.syrin, :00 on s 0.4 Mg 0.4 Mg Medical Intraven Intraven Center Venlafaxine Venlafaxine 37.[address] [facility] [address] Hcl 75 Mg Hcl 75 Mg 10-15 Luke s - Tab, 37.5 Tab, 37.5 00:00 Manjula ent Mg Oral Mg Oral :00 s [facility] Clindamycin Clindamycin [address] [facility] Hcl 150 Mg Hcl 150 Mg 08-16 Times A [facility] - Capsule, Capsule, 00:00 Day Patien t 300 Mg Oral 300 Mg Oral :00 s [facility] Ibuprofen Ibuprofen [address] 600 Mg 600 Mg 08-16 Times A [facility] - Tablet, 800 Tablet, 800 00:00 Day as Patient Mg Oral Mg Oral :00 needed for s Mild Pain Medical (1-3) Bostic Ranolazine Ranolazine [address] [facility] (Ranexa) (Ranexa) 08-16 Day [facility] - 500 Mg 500 Mg 00:00 Patient Tabsr, 1000 Tabsr, 1000 :00 s Mg Oral Mg Oral [facility] Insulin Insulin [address] [facility] Human Nph Human Nph 09-08 Luke s - (Humulin N) (Humulin N) 00:00 Patient 100 100 :00 s Units/Ml Units/Ml Medical Ml, 32 Ml, 32 Center Units Units Subcutaneou Subcutaneou sly sly Insulin Insulin [address] [facility] Regular, Regular, 04-20 Times A Esme es - Human Human 00:00 Day Patient (Humulin R) (Humulin R) :00 s 100 Unit/1 100 Unit/1 Med ical Ml Vial, 45 Ml Vial, 45 C enter Units Units Subcutaneou Subcutaneou sly sly Ranolazine Ranolazine [address] [facility] (Ranexa) (Ranexa) -20 Day [facility] - 500 Mg 500 Mg 00:00 Patient Tabsr, 1000 Tabsr, 1000 :00 s Mg Oral Mg Oral [facility] Insulin Insulin Before [facility] Regular, Regular, 03-22 Meals [facility] - Human Human 00:00 Patient (Humulin R) (Humulin R) :00 s 100 Unit/1 100 Unit/1 Med ical Ml Vial, 20 Ml Vial, 20 C enter Units Sub-Q Units Sub-Q Omeprazole Omeprazole [facility] 40 Mg 40 Mg 06-17 [facility] - Capsule., Capsule., 00:00 Patient :00 s [facility] Insulin Insulin Twice A [facility] [...] 25 Mg Oral 25 Mg Oral :00 [facility] Albuterol Albuterol As Needed [facility] St. Sulfate Sulfate 11-23 as needed Esme es - (Ventolin (Ventolin 00:00 for Manjula ent Hfa) 18 Gm Hfa) 18 Gm :00 Shortness s Hfa.aer.ad, Hfa.aer.ad, Of Breath Medical 90 Mcg 90 Mcg Center Inhalation Inhalation Dicyclomine Dicyclomine Twice A [facility] Hcl 10 Mg Hcl 10 Mg 07-05 Day Luke s - Capsule, 10 Capsule, 10 00:00 Patient Mg Oral Mg Oral :00 s Medical Center Methocarbam Methocarbam 500 Three [facility] [...] Mg Oral Mg Oral :00 s Medical Bostic Nitroglycer Nitroglycer No .4 As Needed [facility] [...] Gm Oral Gm Oral :00 s Medical Bostic Temazepam Temazepam [address] [address] (Restoril) (Restoril) 11-23 Theresa kes - 30 Mg 30 Mg 00:00 Patient Capsule, 30 Capsule, 30 :00 s Mg Oral Mg Oral Medical Center Tizanidine Tizanidine [address] [facility] [address] Hcl 4 Mg Hcl 4 Mg 11-23 [facility] - Capsule, 4 Capsule, 4 00:00 Pa tient Mg Oral Mg Oral :00 s Medical [facility]ostic Trazodone Trazodone [address] [facility] Hcl 50 Mg Hcl 50 Mg 11-23 Luke s - Tablet, 50 Tablet, 50 00:00 Pa tient Mg Oral Mg Oral :00 s Medical [facility]ostic Venlafaxine Venlafaxine 37.[address] [facility] Hcl 37.5 Mg Hcl 37.5 Mg 07-05 Day [facility] - Tablet, Tablet, 00:00 Patient [...] Oral :00 s Medical Center Pregabalin Pregabalin 2013- No [address] [facility] (Lyrica) (Lyrica) 01-02 Day [facility] - 150 Mg 150 Mg 00:00 Patient Capsule, Capsule, :00 s 150 Mg Oral 150 Mg Oral M [facility] Zolpidem Zolpidem No [address] Tartrate Tartrate 01-02 [facility] - (Ambien) 10 (Ambien) 10 00:00 Patient Mg Tablet, Mg Tablet, :00 s 10 Mg Oral 10 Mg Oral Med [facility] Immunizations Ordered Filled Immunization Date Status Comments [facility] Immunization Name Name Influenza Virus 2020-01-21 Completed Universit y of Vaccine 00:00:00 [facility] Influenza Virus 2020-01-21 Completed Universit y of Vaccine 00:00:00 [facility] Influenza Virus 2020-01-21 Completed Universit y of Vaccine 00:00:00 [facility] Influenza Virus 2020-01-21 Completed Universit y of Vaccine 00:00:00 [facility] Influenza Virus 2020-01-21 Completed Universit y of Vaccine 00:00:00 [facility] Influenza Virus 2020-01-21 Completed Universit y of Vaccine 00:00:00 [facility] Influenza Virus 2020-01-21 Completed Universit y of Vaccine 00:00:00 [facility] Influenza Virus 2020-01-21 Completed Universit y of Vaccine 00:00:00 [facility] Influenza Virus 2020-01-21 Completed Universit y of Vaccine 00:00:00 [facility] Influenza Virus 2020-01-21 Completed Universit y of Vaccine 00:00:00 [facility] Influenza Virus 2020-01-21 Completed Universit y of Vaccine 00:00:00 [facility] Influenza Virus 2020-01-21 Completed Universit y of Vaccine 00:00:00 [facility] Influenza Virus 2020-01-21 Completed Universit y of Vaccine 00:00:00 [facility] Influenza Virus 2020-01-21 Completed Universit y of Vaccine 00:00:00 [facility] Influenza Virus 2020-01-21 Completed Universit y of Vaccine 00:00:00 [facility] Influenza Virus 2020-01-21 Completed Universit y of Vaccine 00:00:00 [facility] Influenza Virus 2020-01-21 Completed Universit y of Vaccine 00:00:00 [facility] Influenza Virus 2020-01-21 Completed Universit y of Vaccine 00:00:00 [facility] Zoster Vaccine 2019-07-17 Completed University of Recombinant 00:00:00 [facility] Zoster Vaccine 2019-07-17 Completed University of Recombinant 00:00:00 [facility] Zoster Vaccine 2019-07-17 Completed University of Recombinant 00:00:00 [facility] Zoster Vaccine 2019-07-17 Completed University of Recombinant 00:00:00 [facility] Zoster Vaccine 2019-07-17 Completed University of Recombinant 00:00:00 [facility] Zoster Vaccine 2019-07-17 Completed University of Recombinant 00:00:00 [facility] Zoster Vaccine 2019-07-17 Completed University of Recombinant 00:00:00 [facility] Zoster Vaccine 2019-07-17 Completed University of Recombinant 00:00:00 [facility] Zoster Vaccine 2019-07-17 Completed University of Recombinant 00:00:00 [facility] Zoster Vaccine 2019-07-17 Completed University of Recombinant 00:00:00 [facility] Zoster Vaccine 2019-07-17 Completed University of Recombinant 00:00:00 [facility] Zoster Vaccine 2019-07-17 Completed University of Recombinant 00:00:00 [facility] Zoster Vaccine 2019-07-17 Completed University of Recombinant 00:00:00 [facility] Zoster Vaccine 2019-07-17 Completed University of Recombinant 00:00:00 [facility] Zoster Vaccine 2019-07-17 Completed University of Recombinant 00:00:00 [facility] Zoster Vaccine 2019-07-17 Completed University of Recombinant 00:00:00 [facility] Zoster Vaccine 2019-07-17 Completed University of Recombinant 00:00:00 [facility] Zoster Vaccine 2019-07-17 Completed University of Recombinant 00:00:00 [facility] Zoster Vaccine 2019-07-17 Completed University of Recombinant 00:00:00 [facility] Zoster Vaccine 2019-07-17 Completed [facility] Recombinant 00:00:00 [facility] Zoster Vaccine 2019-07-17 Completed [facility] Recombinant 00:00:00 [facility] Zoster Vaccine 2019-07-17 Completed [facility] Recombinant 00:00:00 [facility] Zoster Vaccine 2019-07-17 Completed [facility] Recombinant 00:00:00 [facility] Zoster Vaccine 2019-07-17 Completed [facility] Recombinant 00:00:00 [facility] Zoster Vaccine 2019-07-17 Completed [facility] Recombinant 00:00:00 [facility] Zoster Vaccine 2019-07-17 Completed [facility] Recombinant 00:00:00 [facility] Zoster Vaccine 2019-07-17 Completed [facility] Recombinant 00:00:00 [facility] Zoster Vaccine 2019-07-17 Completed [facility] Recombinant 00:00:00 [facility] Zoster Vaccine 2019-07-17 Completed [facility] Recombinant 00:00:00 [facility] Zoster Vaccine 2019-07-17 Completed [facility] Recombinant 00:00:00 [facility] Zoster Vaccine 2019-07-17 Completed [facility] Recombinant 00:00:00 [facility] Zoster Vaccine 2019-07-17 Completed [facility] Recombinant 00:00:00 [facility] Zoster Vaccine 2019-07-17 Completed [facility] Recombinant 00:00:00 [facility] Zoster Vaccine 2019-07-17 Completed [facility] Recombinant 00:00:00 [facility] Zoster Vaccine 2019-07-17 Completed [facility] Recombinant 00:00:00 [facility] Zoster Vaccine 2019-07-17 Completed [facility] Recombinant 00:00:00 [facility] Zoster Vaccine 2019-07-17 Completed [facility] Recombinant 00:00:00 [facility] Zoster Vaccine 2019-07-17 Completed [facility] Recombinant 00:00:00 [facility] Zoster Vaccine 2019-07-17 Completed [facility] Recombinant 00:00:00 [facility] Zoster Vaccine 2019-07-17 Completed [facility] Recombinant 00:00:00 [facility] Zoster Vaccine 2019-07-17 Completed [facility] Recombinant 00:00:00 [facility] Td 2019-03-29 Completed [facility] 00:00:00 [facility] Td 2019-03-29 Completed [facility] 00:00:00 [facility] Td 2019-03-29 Completed [facility] 00:00:00 [facility] Td 2019-03-29 Completed [facility] 00:00:00 [facility] Td 2019-03-29 Completed [facility] 00:00:00 [place] [facility] Td 2019-03-29 Completed [facility] 00:00:00 [facility] Td 2019-03-29 Completed [facility] 00:00:00 [facility] Td 2019-03-29 Completed [facility] 00:00:00 [facility] Td 2019-03-29 Completed [facility] 00:00:00 [facility] Td 2019-03-29 Completed [facility] 00:00:00 [facility] Td 2019-03-29 Completed [facility] 00:00:00 [facility] Td 2019-03-29 Completed [facility] 00:00:00 [facility] Td 2019-03-29 Completed [facility] 00:00:00 [facility] Td 2019-03-29 Completed [facility] 00:00:00 [facility] Td 2019-03-29 Completed [facility] 00:00:00 [facility] Td 2019-03-29 Completed [facility] 00:00:00 [facility] Td 2019-03-29 Completed [facility] 00:00:00 [facility] Td 2019-03-29 Completed [facility] 00:00:00 [facility] Td 2019-03-29 Completed [facility] 00:00:00 [facility] Td 2019-03-29 Completed [facility] 00:00:00 [facility] Td 2019-03-29 Completed [facility] 00:00:00 [facility] Td 2019-03-29 Completed [facility] 00:00:00 [facility] Td 2019-03-29 Completed [facility] 00:00:00 [facility] Td 2019-03-29 Completed [facility] 00:00:00 [facility] Td 2019-03-29 Completed [facility] 00:00:00 [facility] Td 2019-03-29 Completed [facility] 00:00:00 [facility] Td 2019-03-29 Completed [facility] 00:00:00 [facility] Td 2019-03-29 Completed [facility] 00:00:00 [facility] Td 2019-03-29 Completed [facility] 00:00:00 [facility] Td 2019-03-29 Completed [facility] 00:00:00 [facility] Td 2019-03-29 Completed [facility] 00:00:00 [facility] Td 2019-03-29 Completed [facility] 00:00:00 [facility] Td 2019-03-29 Completed [facility] 00:00:00 [facility] Td 2019-03-29 Completed [facility] 00:00:00 [facility] Influenza Virus 2018-02-18 Completed [facility] of Vaccine 00:00:00 [facility] Pneumococcal 2018-02-18 Completed [facility] o f Polysaccharide, 00:00:00 [place] [facility] PPSV23 (PNEUMOVAX) Branch Influenza Virus 2018-02-18 Completed [facility] of Vaccine 00:00:00 [facility] Pneumococcal 2018-02-18 Completed [facility] f Polysaccharide, 00:00:00 [place] [facility] PPSV23 (PNEUMOVAX) Branch Influenza Virus 2018-02-18 Completed [facility] of Vaccine 00:00:00 [facility] Pneumococcal 2018-02-18 Completed [facility] f Polysaccharide, 00:00:00 [place] [facility] PPSV23 (PNEUMOVAX) Branch Influenza Virus 2018-02-18 Completed [facility] of Vaccine 00:00:00 [facility] Pneumococcal 2018-02-18 Completed [facility] f Polysaccharide, 00:00:00 [place] [facility] PPSV23 (PNEUMOVAX) Branch Influenza Virus 2018-02-18 Completed [facility] of Vaccine 00:00:00 [facility] Pneumococcal 2018-02-18 Completed [facility] f Polysaccharide, 00:00:00 [place] [facility] PPSV23 (PNEUMOVAX) Branch Influenza Virus 2018-02-18 Completed [facility] of Vaccine 00:00:00 [facility] Pneumococcal 2018-02-18 Completed [facility] f Polysaccharide, 00:00:00 [place] [facility] PPSV23 (PNEUMOVAX) Branch Influenza Virus 2018-02-18 Completed [facility] of Vaccine 00:00:00 [facility] Pneumococcal 2018-02-18 Completed [facility] f Polysaccharide, 00:00:00 [place] [facility] PPSV23 (PNEUMOVAX) Branch Influenza Virus 2018-02-18 Completed [facility] of Vaccine 00:00:00 [facility] Pneumococcal 2018-02-18 Completed [facility] f Polysaccharide, 00:00:00 [place] [facility] PPSV23 (PNEUMOVAX) Branch Influenza Virus 2018-02-18 Completed [facility] of Vaccine 00:00:00 [facility] Pneumococcal 2018-02-18 Completed [facility] f Polysaccharide, 00:00:00 [place] [facility] PPSV23 (PNEUMOVAX) Branch Influenza Virus 2018-02-18 Completed [facility] of Vaccine 00:00:00 [facility] Pneumococcal 2018-02-18 Completed [facility] f Polysaccharide, 00:00:00 [place] [facility] PPSV23 (PNEUMOVAX) Branch Influenza Virus 2018-02-18 Completed [facility] of Vaccine 00:00:00 [facility] Pneumococcal 2018-02-18 Completed [facility] f Polysaccharide, 00:00:00 [place] [facility] PPSV23 (PNEUMOVAX) Branch Influenza Virus 2018-02-18 Completed [facility] of Vaccine 00:00:00 [facility] Pneumococcal 2018-02-18 Completed [facility] f Polysaccharide, 00:00:00 [place] [facility] PPSV23 (PNEUMOVAX) Branch Influenza Virus 2018-02-18 Completed [facility] of Vaccine 00:00:00 [facility] Pneumococcal 2018-02-18 Completed [facility] f Polysaccharide, 00:00:00 [place] [facility] PPSV23 (PNEUMOVAX) Branch Influenza Virus 2018-02-18 Completed [facility] of Vaccine 00:00:00 [facility] Pneumococcal 2018-02-18 Completed [facility] f Polysaccharide, 00:00:00 [place] [facility] PPSV23 (PNEUMOVAX) Branch Influenza Virus 2018-02-18 Completed [facility] of Vaccine 00:00:00 [facility] Pneumococcal 2018-02-18 Completed [facility] f Polysaccharide, 00:00:00 [place] [facility] PPSV23 (PNEUMOVAX) Branch Influenza Virus 2018-02-18 Completed [facility] of Vaccine 00:00:00 [facility] Pneumococcal 2018-02-18 Completed [facility] f Polysaccharide, 00:00:00 [place] [facility] PPSV23 (PNEUMOVAX) Branch Influenza Virus 2018-02-18 Completed [facility] of Vaccine 00:00:00 [facility] Pneumococcal 2018-02-18 Completed [facility] o f Polysaccharide, 00:00:00 [place] [facility] PPSV23 (PNEUMOVAX) Branch Influenza Virus 2018-02-18 Completed [facility] of Vaccine 00:00:00 [facility] Pneumococcal 2018-02-18 Completed [facility] f Polysaccharide, 00:00:00 [place] [facility] PPSV23 (PNEUMOVAX) Branch Influenza Virus 2018-02-18 Completed [facility] of Vaccine 00:00:00 [facility] Pneumococcal 2018-02-18 Completed [facility] f Polysaccharide, 00:00:00 [place] [facility] PPSV23 (PNEUMOVAX) Branch Influenza Virus 2018-02-18 Completed [facility] of Vaccine 00:00:00 [facility] Pneumococcal 2018-02-18 Completed [facility] f Polysaccharide, 00:00:00 [place] [facility] PPSV23 (PNEUMOVAX) Branch Influenza Virus 2018-02-18 Completed [facility] of Vaccine 00:00:00 [facility] Pneumococcal 2018-02-18 Completed [facility] f Polysaccharide, 00:00:00 [place] [facility] PPSV23 (PNEUMOVAX) Branch Influenza Virus 2018-02-18 Completed [facility] y of Vaccine 00:00:00 [facility] Pneumococcal 2018-02-18 Completed [facility] f Polysaccharide, 00:00:00 [place] [facility] PPSV23 (PNEUMOVAX) Branch Influenza Virus 2018-02-18 Completed [facility] y of Vaccine 00:00:00 [facility] Pneumococcal 2018-02-18 Completed [facility] f Polysaccharide, 00:00:00 [place] [facility] PPSV23 (PNEUMOVAX) Branch Influenza Virus 2018-02-18 Completed [facility] of Vaccine 00:00:00 [facility] Pneumococcal 2018-02-18 Completed [facility] o f Polysaccharide, 00:00:00 [place] [facility] PPSV23 (PNEUMOVAX) [place] Influenza Virus 2018-02-18 Completed [facility] y of Vaccine 00:00:00 [facility] Pneumococcal 2018-02-18 Completed [facility] o f Polysaccharide, 00:00:00 [facility] ical PPSV23 (PNEUMOVAX) Branch Influenza Virus 2018-02-18 Completed [facility]it y of Vaccine 00:00:00 [facility] Pneumococcal 2018-02-18 Completed [facility] o f Polysaccharide, 00:00:00 [facility] ical PPSV23 (PNEUMOVAX) Branch Influenza Virus 2018-02-18 Completed [facility] y of Vaccine 00:00:00 [facility] Pneumococcal 2018-02-18 Completed [facility] o f Polysaccharide, 00:00:00 [facility] ical PPSV23 (PNEUMOVAX) Branch Influenza Virus 2018-02-18 Completed [facility] y of Vaccine 00:00:00 [facility] Pneumococcal 2018-02-18 Completed [facility] f Polysaccharide, 00:00:00 [place] [facility] PPSV23 (PNEUMOVAX) Branch Influenza Virus 2018-02-18 Completed [facility] of Vaccine 00:00:00 [facility] Pneumococcal 2018-02-18 Completed [facility] f Polysaccharide, 00:00:00 [place] [facility] PPSV23 (PNEUMOVAX) [place] Influenza Virus 2018-02-18 Completed [facility] y of Vaccine 00:00:00 [facility] Pneumococcal 2018-02-18 Completed [facility] o f Polysaccharide, 00:00:00 [place] [facility] PPSV23 (PNEUMOVAX) Branch Influenza Virus 2018-02-18 Completed [facility] y of Vaccine 00:00:00 [facility] Pneumococcal 2018-02-18 Completed [facility] f Polysaccharide, 00:00:00 [place] [facility] PPSV23 (PNEUMOVAX) Branch Influenza Virus 2018-02-18 Completed [facility] y of Vaccine 00:00:00 [facility] Pneumococcal 2018-02-18 Completed [facility] o f Polysaccharide, 00:00:00 [place] [facility] PPSV23 (PNEUMOVAX) Branch Influenza Virus 2018-02-18 Completed [facility] y of Vaccine 00:00:00 [facility] Pneumococcal 2018-02-18 Completed [facility] f Polysaccharide, 00:00:00 [place] [facility] PPSV23 (PNEUMOVAX) Branch Influenza Virus 2018-02-18 Completed [facility] y of Vaccine 00:00:00 [facility] Pneumococcal 2018-02-18 Completed [facility] o f Polysaccharide, 00:00:00 [place] [facility] PPSV23 (PNEUMOVAX) Branch Influenza Virus 2018-02-18 Completed [facility] y of Vaccine 00:00:00 [facility] Pneumococcal 2018-02-18 Completed [facility] o f Polysaccharide, 00:00:00 [facility] ical PPSV23 (PNEUMOVAX) Branch Influenza Virus 2018-02-18 Completed [facility] y of Vaccine 00:00:00 [facility] Pneumococcal 2018-02-18 Completed [facility] o f Polysaccharide, 00:00:00 [facility] ical PPSV23 (PNEUMOVAX) Branch Influenza Virus 2018-02-18 Completed [facility] y of Vaccine 00:00:00 [facility] Pneumococcal 2018-02-18 Completed [facility] f Polysaccharide, 00:00:00 [place] [facility] PPSV23 (PNEUMOVAX) Branch Influenza Virus 2018-02-18 Completed [facility] y of Vaccine 00:00:00 [facility] Pneumococcal 2018-02-18 Completed [facility] f Polysaccharide, 00:00:00 [place] [facility] PPSV23 (PNEUMOVAX) Branch Influenza Virus 2018-02-18 Completed [facility] y of Vaccine 00:00:00 [facility] Pneumococcal 2018-02-18 Completed [facility] f Polysaccharide, 00:00:00 [place] [facility] PPSV23 (PNEUMOVAX) [place] Influenza Virus 2018-02-18 Completed [facility] y of Vaccine 00:00:00 [facility] Pneumococcal 2018-02-18 Completed [facility] f Polysaccharide, 00:00:00 [place] [facility] PPSV23 (PNEUMOVAX) Branch Influenza Virus 2018-02-18 Completed [facility] y of Vaccine 00:00:00 [facility] Pneumococcal 2018-02-18 Completed [facility] f Polysaccharide, 00:00:00 [place] [facility] PPSV23 (PNEUMOVAX) Branch Influenza Virus 2018-02-18 Completed [facility] y of Vaccine 00:00:00 [facility] Pneumococcal 2018-02-18 Completed [facility] f Polysaccharide, 00:00:00 [place] [facility] PPSV23 (PNEUMOVAX) Branch Influenza Virus 2018-02-18 Completed [facility] y of Vaccine 00:00:00 [facility] Pneumococcal 2018-02-18 Completed [facility] o f Polysaccharide, 00:00:00 [place] [facility] PPSV23 (PNEUMOVAX) Branch Influenza Virus 2018-02-18 Completed [facility] y of Vaccine 00:00:00 [facility] Pneumococcal 2018-02-18 Completed [facility] f Polysaccharide, 00:00:00 [place] [facility] PPSV23 (PNEUMOVAX) Branch Influenza Virus 2018-02-18 Completed [facility] y of Vaccine 00:00:00 [facility] Pneumococcal 2018-02-18 Completed [facility] f Polysaccharide, 00:00:00 [place] [facility] PPSV23 (PNEUMOVAX) Branch Influenza Virus 2018-02-18 Completed [facility] y of Vaccine 00:00:00 [facility] Pneumococcal 2018-02-18 Completed [facility] f Polysaccharide, 00:00:00 [place] [facility] PPSV23 (PNEUMOVAX) Branch Influenza Virus 2018-02-18 Completed [facility] y of Vaccine 00:00:00 [facility] Pneumococcal 2018-02-18 Completed [facility] o f Polysaccharide, 00:00:00 [place] [facility] PPSV23 (PNEUMOVAX) Branch Influenza Virus 2018-02-18 Completed [facility] of Vaccine 00:00:00 [facility] Pneumococcal 2018-02-18 Completed [facility] o f Polysaccharide, 00:00:00 [place] [facility] PPSV23 (PNEUMOVAX) [place] Influenza Virus 2018-02-18 Completed [facility] y of Vaccine 00:00:00 [facility] Pneumococcal 2018-02-18 Completed [facility] o f Polysaccharide, 00:00:00 [place] [facility] PPSV23 (PNEUMOVAX) Branch Influenza Virus 2018-02-18 Completed [facility] y of Vaccine 00:00:00 [facility] Pneumococcal 2018-02-18 Completed [facility] f Polysaccharide, 00:00:00 [place] [facility] PPSV23 (PNEUMOVAX) Branch Influenza Virus 2018-02-18 Completed [facility] y of Vaccine 00:00:00 [facility] Pneumococcal 2018-02-18 Completed [facility] o f Polysaccharide, 00:00:00 [place] [facility] PPSV23 (PNEUMOVAX) Branch Influenza Virus 2018-02-18 Completed [facility] y of Vaccine 00:00:00 [facility] Pneumococcal 2018-02-18 Completed [facility] o f Polysaccharide, 00:00:00 [place] [facility] PPSV23 (PNEUMOVAX) Branch Influenza Virus 2018-02-18 Completed [facility] y of Vaccine 00:00:00 [facility] Pneumococcal 2018-02-18 Completed [facility] o f Polysaccharide, 00:00:00 [place] [facility] PPSV23 (PNEUMOVAX) Branch Influenza Virus 2018-02-18 Completed [facility] y of Vaccine 00:00:00 [facility] Pneumococcal 2018-02-18 Completed [facility] o f Polysaccharide, 00:00:00 [place] [facility] PPSV23 (PNEUMOVAX) Branch Influenza Virus 2018-02-18 Completed [facility] y of Vaccine 00:00:00 [facility] Pneumococcal 2018-02-18 Completed [facility] o f Polysaccharide, 00:00:00 [place] [facility] PPSV23 (PNEUMOVAX) Branch Influenza Virus 2018-02-18 Completed [facility] y of Vaccine 00:00:00 [facility] Pneumococcal 2018-02-18 Completed [facility] o f Polysaccharide, 00:00:00 [place] [facility] PPSV23 (PNEUMOVAX) Branch Influenza Virus 2018-02-18 Completed [facility] y of Vaccine 00:00:00 [facility] Pneumococcal 2018-02-18 Completed [facility] o f Polysaccharide, 00:00:00 [place] [facility] PPSV23 (PNEUMOVAX) Branch Influenza Virus 2018-02-18 Completed [facility] y of Vaccine 00:00:00 [facility] Pneumococcal 2018-02-18 Completed [facility] o f Polysaccharide, 00:00:00 [place] [facility] PPSV23 (PNEUMOVAX) Branch Influenza Virus 2018-02-18 Completed [facility] y of Vaccine 00:00:00 [facility] Pneumococcal 2018-02-18 Completed [facility] f Polysaccharide, 00:00:00 [place] [facility] PPSV23 (PNEUMOVAX) Branch Influenza Virus 2018-02-18 Completed [facility] y of Vaccine 00:00:00 [facility] Pneumococcal 2018-02-18 Completed [facility] o f Polysaccharide, 00:00:00 [place] [facility] PPSV23 (PNEUMOVAX) Branch Influenza Virus 2018-02-18 Completed [facility] y of Vaccine 00:00:00 [facility] Pneumococcal 2018-02-18 Completed [facility] o f Polysaccharide, 00:00:00 [place] [facility] PPSV23 (PNEUMOVAX) Branch Influenza Virus 2018-02-18 Completed [facility] y of Vaccine 00:00:00 [facility] Pneumococcal 2018-02-18 Completed [facility] o f Polysaccharide, 00:00:00 [place] [facility] PPSV23 (PNEUMOVAX) Branch Influenza Virus 2018-02-18 Completed [facility] y of Vaccine 00:00:00 [facility] Pneumococcal 2018-02-18 Completed [facility] o f Polysaccharide, 00:00:00 [place] [facility] PPSV23 (PNEUMOVAX) Branch Influenza Virus 2018-02-18 Completed [facility] y of Vaccine 00:00:00 [facility] Pneumococcal 2018-02-18 Completed [facility] o f Polysaccharide, 00:00:00 [place] [facility] PPSV23 (PNEUMOVAX) Branch Influenza Virus 2018-02-18 Completed [facility] of Vaccine 00:00:00 [facility] Pneumococcal 2018-02-18 Completed [facility] o f Polysaccharide, 00:00:00 [place] [facility] PPSV23 (PNEUMOVAX) Branch Influenza Virus 2018-02-18 Completed [facility] y of Vaccine 00:00:00 [facility] Pneumococcal 2018-02-18 Completed [facility] o f Polysaccharide, 00:00:00 [place] [facility] PPSV23 (PNEUMOVAX) Branch Influenza Virus 2018-02-18 Completed [facility] y of Vaccine 00:00:00 [facility] Pneumococcal 2018-02-18 Completed [facility] f Polysaccharide, 00:00:00 [place] [facility] PPSV23 (PNEUMOVAX) Branch Influenza Virus 2018-02-18 Completed [facility] y of Vaccine 00:00:00 [facility] Pneumococcal 2018-02-18 Completed [facility] o f Polysaccharide, 00:00:00 [place] [facility] PPSV23 (PNEUMOVAX) Branch Influenza Virus 2018-02-18 Completed [facility] of Vaccine 00:00:00 [facility] Pneumococcal 2018-02-18 Completed [facility] f Polysaccharide, 00:00:00 [place] [facility] PPSV23 (PNEUMOVAX) Branch Influenza Virus 2018-02-18 Completed [facility] y of Vaccine 00:00:00 [facility] Pneumococcal 2018-02-18 Completed [facility] o f Polysaccharide, 00:00:00 [facility] PPSV23 (PNEUMOVAX) [place] Influenza Virus 2008-03-19 Completed [facility] y of Vaccine 00:00:00 [facility] Influenza Virus 2008-03-19 Completed [facility] y of Vaccine 00:00:00 [facility] Influenza Virus 2008-03-19 Completed [facility] y of Vaccine 00:00:00 [facility] Influenza Virus 2008-03-19 Completed [facility] y of Vaccine 00:00:00 [facility] Influenza Virus 2008-03-19 Completed [facility] y of Vaccine 00:00:00 [facility] Influenza Virus 2008-03-19 Completed [facility] y of Vaccine 00:00:00 [facility] Influenza Virus 2008-03-19 Completed [facility] y of Vaccine 00:00:00 [facility] Influenza Virus 2008-03-19 Completed [facility] y of Vaccine 00:00:00 [facility] Influenza Virus 2008-03-19 Completed [facility] y of Vaccine 00:00:00 [facility] Influenza Virus 2008-03-19 Completed [facility] y of Vaccine 00:00:00 [facility] Influenza Virus 2008-03-19 Completed [facility] y of Vaccine 00:00:00 [facility] Influenza Virus 2008-03-19 Completed [facility] y of Vaccine 00:00:00 [facility] Influenza Virus 2008-03-19 Completed [facility] of Vaccine 00:00:00 [facility] Influenza Virus 2008-03-19 Completed [facility] y of Vaccine 00:00:00 [facility] Influenza Virus 2008-03-19 Completed [facility] y of Vaccine 00:00:00 [facility] Influenza Virus 2008-03-19 Completed [facility] y of Vaccine 00:00:00 [facility] Influenza Virus 2008-03-19 Completed [facility] y of Vaccine 00:00:00 [facility] Influenza Virus 2008-03-19 Completed [facility] y of Vaccine 00:00:00 [facility] Influenza Virus 2008-03-19 Completed [facility] y of Vaccine 00:00:00 [facility] Influenza Virus 2008-03-19 Completed [facility] y of Vaccine 00:00:00 [facility] Influenza Virus 2008-03-19 Completed [facility] y of Vaccine 00:00:00 [facility] Influenza Virus 2008-03-19 Completed [facility] y of Vaccine 00:00:00 [facility] Influenza Virus 2008-03-19 Completed [facility] y of Vaccine 00:00:00 [facility] Influenza Virus 2008-03-19 Completed [facility] Vaccine 00:00:00 [facility] Influenza Virus 2008-03-19 Completed [facility] Vaccine 00:00:00 [facility] Influenza Virus 2008-03-19 Completed [facility] Vaccine 00:00:00 [facility] Influenza Virus 2008-03-19 Completed [facility] Vaccine 00:00:00 [facility] Influenza Virus 2008-03-19 Completed [facility] Vaccine 00:00:00 [facility] Influenza Virus 2008-03-19 Completed [facility] Vaccine 00:00:00 [facility] Influenza Virus 2008-03-19 Completed [facility] of Vaccine 00:00:00 [facility] Influenza Virus 2008-03-19 Completed [facility] Vaccine 00:00:00 [facility] Influenza Virus 2008-03-19 Completed [facility] Vaccine 00:00:00 [facility] Influenza Virus 2008-03-19 Completed [facility] Vaccine 00:00:00 [facility] Influenza Virus 2008-03-19 Completed [facility] Vaccine 00:00:00 [facility] Influenza Virus 2008-03-19 Completed [facility] of Vaccine 00:00:00 [facility] Influenza Virus 2008-03-19 Completed [facility] of Vaccine 00:00:00 [facility] Influenza Virus 2008-03-19 Completed [facility] of Vaccine 00:00:00 [facility] Influenza Virus 2008-03-19 Completed [facility] of Vaccine 00:00:00 [facility] Influenza Virus 2008-03-19 Completed [facility] of Vaccine 00:00:00 [facility] Influenza Virus 2008-03-19 Completed [facility] Vaccine 00:00:00 [facility] Influenza Virus 2008-03-19 Completed [facility] Vaccine 00:00:00 [facility] Vital Signs Vital Name Observation Time Observation Value Comments Source Systolic blood 2021-01-04 100 mm[Hg] [facility] pressure 20:34:00 [facility] Diastolic blood 2021-01-04 70 mm[Hg] University o f pressure 20:34:00 [facility] Heart rate 2021-01-04 69 /min University of 20:34:00 [facility] Body temperature 2021-01-04 36.61 Sandy [facility] of 20:34:00 [facility] Respiratory rate 2021-01-04 18 /min [facility] of 20:34:00 [facility] Oxygen saturation 2021-01-04 96 /min University of in Arterial blood 20:34:00 [facility] uriel by Pulse oximetry Branch Body height 2021-01-02 170.2 cm University of 02:19:00 [facility] Body weight 2021-01-02 75.978 kg University of 02:19:00 [facility] BMI 2021-01-02 26.23 kg/m2 University of 02:19:00 [facility] Systolic blood 2020-12-16 112 mm[Hg] [facility] of pressure 20:56:00 [facility] Diastolic blood 2020-12-16 69 mm[Hg] University o f pressure 20:56:00 [facility] Heart rate 2020-12-16 69 /min [facility] of 20:56:00 [facility] Body temperature 2020-12-16 37.11 Sandy [facility] 20:56:00 [facility] Respiratory rate 2020-12-16 18 /min [facility] of 20:56:00 [facility] Oxygen saturation 2020-12-16 95 /min [facility] of in Arterial blood 20:56:00 [facility] by Pulse oximetry Branch Body weight 2020-12-15 76.476 kg University of 15:06:00 [facility] BMI 2020-12-15 26.41 kg/m2 University of 15:06:00 [facility] Systolic blood 2020-10-12 141 mm[Hg] [facility] pressure 19:30:00 [facility] Diastolic blood 2020-10-12 90 mm[Hg] [facility] o f pressure 19:30:00 [facility] Heart rate 2020-10-12 99 /min [facility] of 19:28:00 [facility] Body temperature 2020-10-12 36 Sandy [facility] 19:28:00 [facility] Body weight 2020-10-12 78.472 kg University of 19:28:00 [facility] BMI 2020-10-12 27.10 kg/m2 University of 19:28:00 [facility] Oxygen saturation 2020-10-12 99 /min [facility] of in Arterial blood 19:28:00 [facility] by Pulse oximetry Branch Systolic blood 2020-10-06 136 mm[Hg] [facility] pressure 16:17:00 [facility] Diastolic blood 2020-10-06 84 mm[Hg] University o f pressure 16:17:00 [facility] Heart rate 2020-10-06 93 /min [facility] of 16:17:00 [facility] Body temperature 2020-10-06 35.89 Sandy [facility] 16:17:00 [facility] Body weight 2020-10-06 78.472 kg University of 16:17:00 [facility] BMI 2020-10-06 27.10 kg/m2 University of 16:17:00 [facility] Oxygen saturation 2020-10-06 99 /min [facility] of in Arterial blood 16:17:00 [facility] by Pulse oximetry Branch Systolic blood 2020-10-06 136 mm[Hg] [facility] of pressure 16:17:00 [facility] Diastolic blood 2020-10-06 84 mm[Hg] [facility] o f pressure 16:17:00 [facility] Heart rate 2020-10-06 93 /min [facility] of 16:17:00 [facility] Body temperature 2020-10-06 35.89 Sandy [facility] of 16:17:00 [facility] Body weight 2020-10-06 78.472 kg University of 16:17:00 [facility] BMI 2020-10-06 27.10 kg/m2 University of 16:17:00 [facility] Oxygen saturation 2020-10-06 99 /min [facility] of in Arterial blood 16:17:00 [facility] by Pulse oximetry Branch Systolic blood 2020-09-29 136 mm[Hg] [facility] pressure 01:00:00 [facility] Diastolic blood 2020-09-29 78 mm[Hg] [facility] o f pressure 01:00:00 [facility] Heart rate 2020-09-29 89 /min [facility] of 01:00:00 [facility] Respiratory rate 2020-09-29 17 /min [facility] of 01:00:00 [facility] Oxygen saturation 2020-09-29 98 /min [facility] of in Arterial blood 01:00:00 [facility] by Pulse oximetry Branch Body temperature 2020-09-28 36.44 Sandy [facility] of 22:33:00 [facility] Body weight 2020-09-28 78.472 kg University of 22:33:00 [facility] BMI 2020-09-28 27.10 kg/m2 University of 22:33:00 [facility] Body temperature 2020-09-26 5 Sandy [facility] of 17:00:00 [facility] Systolic blood 2020-09-26 103 mm[Hg] [facility] of pressure 16:30:00 [facility] Diastolic blood 2020-09-26 69 mm[Hg] University o f pressure 16:30:00 [facility] Heart rate 2020-09-26 80 /min University of 16:30:00 [facility] Respiratory rate 2020-09-26 16 /min [facility] of 16:30:00 [facility] Oxygen saturation 2020-09-26 92 /min University in Arterial blood 16:30:00 [facility] by Pulse oximetry [facility] Body weight 2020-09-26 80.882 kg University of 08:57:00 [facility] BMI 2020-09-26 27.93 kg/m2 University of 08:57:00 [facility] Body height 2020-09-24 170.2 cm pt is a University 02:35:00 bilateral [facility] amputie. prior Branch anita is as noted. pt does not know how tall he is at this time. Systolic blood 2020-09-07 119 mm[Hg] [facility] of pressure 16:03:00 [facility] Diastolic blood 2020-09-07 79 mm[Hg] University o f pressure 16:03:00 [facility] Heart rate 2020-09-07 100 /min University of 16:03:00 [facility] Body temperature 2020-09-07 36.67 Sandy University of 16:03:00 [facility] Respiratory rate 2020-09-07 18 /min University of 16:03:00 [facility] Oxygen saturation 2020-09-07 98 /min University in Arterial blood 16:03:00 [facility] by Pulse oximetry [facility] Body height 2020-09-02 170.2 cm University of 22:04:00 [facility] Body weight 2020-09-02 74.844 kg University of 22:04:00 [facility] BMI 2020-09-02 25.84 kg/m2 University of 22:04:00 [facility] Systolic blood 2020-08-26 108 mm[Hg] [facility] of pressure 16:00:00 [facility] Diastolic blood 2020-08-26 72 mm[Hg] University o f pressure 16:00:00 [facility] Heart rate 2020-08-26 87 /min University of 16:00:00 [facility] Body temperature 2020-08-26 36.83 Sandy University of 16:00:00 [facility] Respiratory rate 2020-08-26 20 /min University of 16:00:00 [facility] Body height 2020-08-26 167.6 cm University of 16:00:00 [facility] Body weight 2020-08-26 74.844 kg University of 16:00:00 [facility] BMI 2020-08-26 26.63 kg/m2 University of 16:00:00 [facility] Oxygen saturation 2020-08-26 99 /min [facility] of in Arterial blood 16:00:00 [facility] by Pulse oximetry [facility] Systolic blood 2020-08-21 98 mm[Hg] [facility] of pressure 13:57:00 [facility] Diastolic blood 2020-08-21 66 mm[Hg] University o f pressure 13:57:00 [facility] Heart rate 2020-08-21 69 /min University of 13:57:00 [facility] Body temperature 2020-08-21 36.17 Sandy [facility] 13:57:00 [facility] Respiratory rate 2020-08-21 20 /min University of 13:57:00 [facility] Body height 2020-08-21 167.6 cm University of 13:57:00 [facility] Oxygen saturation 2020-08-21 98 /min [facility] of in Arterial blood 13:57:00 [facility] by Pulse oximetry [facility] Systolic blood 2020-08-06 101 mm[Hg] [facility] pressure 20:39:00 [facility] Diastolic blood 2020-08-06 61 mm[Hg] University o f pressure 20:39:00 [facility] Heart rate 2020-08-06 78 /min University of 20:39:00 [facility] Body temperature 2020-08-06 36.44 Sandy [facility] of 20:39:00 [facility] Respiratory rate 2020-08-06 18 /min University of 20:39:00 [facility] Oxygen saturation 2020-08-06 93 /min [facility] in Arterial blood 20:39:00 [facility] by Pulse oximetry [facility] Body height 2020-07-31 170.2 cm University of 05:00:00 [facility] Body weight 2020-07-31 95.255 kg University of 05:00:00 [facility] BMI 2020-07-31 32.89 kg/m2 University of 05:00:00 [facility] Systolic blood 2020-07-20 118 mm[Hg] [facility] of pressure 22:48:00 [facility] Diastolic blood 2020-07-20 74 mm[Hg] University o f pressure 22:48:00 [facility] Heart rate 2020-07-20 81 /min University of 22:48:00 [facility] Body temperature 2020-07-20 35.17 Sandy [facility] of 22:48:00 [facility] Respiratory rate 2020-07-20 18 /min University of 22:48:00 [facility] Oxygen saturation 2020-07-20 99 /min [facility] in Arterial blood 22:48:00 [facility] by Pulse oximetry Branch Body height 2020-07-15 170.2 cm University of 04:24:00 [facility] Body weight 2020-07-15 90.719 kg University of 04:24:00 [facility] BMI 2020-07-15 31.32 kg/m2 University of 04:24:00 [facility] Systolic blood 2020-06-11 119 mm[Hg] [facility] of pressure 19:50:00 [facility] Diastolic blood 2020-06-11 74 mm[Hg] University o f pressure 19:50:00 [facility] Heart rate 2020-06-11 94 /min University of 19:50:00 [facility] Body temperature 2020-06-11 36.89 Sandy [facility] of 19:50:00 [facility] Body height 2020-06-11 170.2 cm University of 19:50:00 [facility] Body weight 2020-06-11 77.111 kg University of 19:50:00 [facility] BMI 2020-06-11 26.63 kg/m2 University of 19:50:00 [facility] Oxygen saturation 2020-06-11 100 /min [facility] in Arterial blood 19:50:00 [facility] by Pulse oximetry Branch Systolic blood 2020-06-02 104 mm[Hg] [facility] of pressure 17:25:00 [facility] Diastolic blood 2020-06-02 66 mm[Hg] University o f pressure 17:25:00 [facility] Heart rate 2020-06-02 103 /min University of 17:25:00 [facility] Body temperature 2020-06-02 36.5 Sandy University of 17:25:00 [facility] Respiratory rate 2020-06-02 17 /min University of 17:25:00 [facility] Oxygen saturation 2020-06-02 94 /min [facility] of in Arterial blood 17:25:00 [facility] by Pulse oximetry Branch Body height 2020-05-29 170.2 cm University of 15:17:00 [facility] Body weight 2020-05-29 74.844 kg University of 15:17:00 [facility] BMI 2020-05-29 25.84 kg/m2 University of 15:17:00 [facility] Systolic blood 2020-04-23 122 mm[Hg] University of pressure 20:03:00 [facility] Diastolic blood 2020-04-23 78 mm[Hg] University o f pressure 20:03:00 [facility] Heart rate 2020-04-23 96 /min University of 20:03:00 [facility] Body temperature 2020-04-23 36.44 Sandy University of 20:03:00 [facility] Body height 2020-04-23 170.2 cm University of 20:03:00 [facility] Oxygen saturation 2020-04-23 98 /min [facility] of in Arterial blood 20:03:00 [facility] by Pulse oximetry Branch Systolic blood 2020-04-09 87 mm[Hg] [facility] of pressure 20:13:00 [facility] Diastolic blood 2020-04-09 59 mm[Hg] University o f pressure 20:13:00 [facility] Heart rate 2020-04-09 94 /min University of 20:13:00 [facility] Body height 2020-04-09 170.2 cm University of 20:13:00 [facility] Body weight 2020-04-09 74.39 kg University of 20:13:00 [facility] BMI 2020-04-09 25.69 kg/m2 University of 20:13:00 [facility] Oxygen saturation 2020-04-09 97 /min [facility] of in Arterial blood 20:13:00 [facility] by Pulse oximetry Branch Systolic blood 2020-03-26 101 mm[Hg] [facility] of pressure 21:36:00 [facility] Diastolic blood 2020-03-26 67 mm[Hg] University o f pressure 21:36:00 [facility] Heart rate 2020-03-26 86 /min University of 21:36:00 [facility] Body temperature 2020-03-26 36.39 Sandy University of 21:36:00 [facility] Respiratory rate 2020-03-26 18 /min University of 21:36:00 [facility] Oxygen saturation 2020-03-26 97 /min [facility] of in Arterial blood 21:36:00 [facility] by Pulse oximetry Branch Body height 2020-03-18 170.2 cm University of 00:50:00 [facility] Body weight 2020-03-18 79.379 kg University of 00:50:00 [facility] BMI 2020-03-18 27.41 kg/m2 University of 00:50:00 [facility] Respiratory rate 2020-02-06 18 /min University of 01:01:00 [facility] Oxygen saturation 2020-02-06 93 /min [facility] of in Arterial blood 01:01:00 [facility] by Pulse oximetry Branch Systolic blood 2020-02-05 114 mm[Hg] [facility] of pressure 21:00:00 [facility] Diastolic blood 2020-02-05 73 mm[Hg] University o f pressure 21:00:00 [facility] Heart rate 2020-02-05 81 /min University of 21:00:00 [facility] Body temperature 2020-02-05 36.5 Sandy University of 21:00:00 [facility] Body weight 2020-02-05 81.965 kg University of 09:07:00 [facility] BMI 2020-02-05 28.30 kg/m2 University of 09:07:00 [facility] Systolic blood 2019-11-21 126 mm[Hg] [facility] of pressure 15:56:00 [facility] Diastolic blood 2019-11-21 78 mm[Hg] University o f pressure 15:56:00 [facility] Heart rate 2019-11-21 77 /min University of 15:56:00 [facility] Body temperature 2019-11-21 36.11 Sandy [facility] of 15:56:00 [facility] Respiratory rate 2019-11-21 18 /min University of 15:56:00 [facility] Oxygen saturation 2019-11-21 98 /min [facility] of in Arterial blood 15:56:00 [facility] by Pulse oximetry Branch Body weight 2019-11-21 78.971 kg University of 08:21:00 [facility] BMI 2019-11-21 27.27 kg/m2 University of 08:21:00 [facility] Body height 2019-11-16 170.2 cm University of 21:44:00 [facility] Systolic blood 2019-09-18 113 mm[Hg] [facility] of pressure 05:15:00 [facility] Diastolic blood 2019-09-18 80 mm[Hg] University o f pressure 05:15:00 [facility] Heart rate 2019-09-18 91 /min [facility] of 05:15:00 [facility] Respiratory rate 2019-09-18 21 /min [facility] of 05:15:00 [facility] Oxygen saturation 2019-09-18 100 /min [facility] in Arterial blood 05:15:00 [facility] by Pulse oximetry [facility] Body temperature 2019-09-18 36.94 [place] [facility] of 01:26:00 [facility] Body height 2019-09-18 170.2 cm University of 01:26:00 [facility] Body weight 2019-09-18 72.576 kg University of 01:26:00 [facility] BMI 2019-09-18 25.06 kg/m2 University of 01:26:00 [facility] Systolic blood 2019-08-15 150 mm[Hg] [facility] of pressure 19:26:52 [facility] Diastolic blood 2019-08-15 78 mm[Hg] [facility] o f pressure 19:26:52 [facility] Heart rate 2019-08-15 88 /min University of 19:26:52 [facility] Respiratory rate 2019-08-15 18 /min University of 19:26:52 [facility] Oxygen saturation 2019-08-15 100 /min [facility] of in Arterial blood 19:26:52 [facility] uriel by Pulse oximetry Branch Body temperature 2019-08-15 36.5 Sandy University of 16:56:00 [facility] Body weight 2019-08-15 72.576 kg University of 16:56:00 [facility] BMI 2019-08-15 25.06 kg/m2 University of 16:56:00 [facility] Systolic blood 2019-08-09 100 mm[Hg] [facility] of pressure 16:00:00 [facility] Diastolic blood 2019-08-09 66 mm[Hg] University o f pressure 16:00:00 [facility] Heart rate 2019-08-09 88 /min University of 16:00:00 [facility] Body temperature 2019-08-09 36.56 [place] [facility] of 16:00:00 [facility] Oxygen saturation 2019-08-09 98 /min [facility] of in Arterial blood 16:00:00 [facility] by Pulse oximetry Branch Respiratory rate 2019-08-09 18 /min University of 13:31:00 [facility] Body height 2019-08-06 170.2 cm University of ::00 [facility] Body weight 2019-08-06 75.978 kg University of ::00 [facility] BMI 2019-08-06 26.23 kg/m2 University of :25:00 [facility] Systolic blood 2019-07-19 98 mm[Hg] University of pressure 01:02:00 [facility] Diastolic blood 2019-07-19 55 mm[Hg] University o f pressure 01:02:00 [facility] Heart rate 2019-07-19 75 /min University of 01:02:00 [facility] Body temperature 2019-07-19 36.39 Sandy University of :02:00 [facility] Respiratory rate 2019-07-19 18 /min University of :02:00 [facility] Oxygen saturation 2019-07-19 95 /min [facility] of in Arterial blood 01:02:00 [facility] by Pulse oximetry Branch Body height 2019-07-18 170.2 cm University of 19:06:00 [facility] Body weight 2019-07-18 78.472 kg University of 19:06:00 [facility] BMI 2019-07-18 27.10 kg/m2 University of 19:06:00 [facility] Systolic blood 2019-06-26 114 mm[Hg] University of pressure 22:23:00 [facility] Diastolic blood 2019-06-26 76 mm[Hg] University o f pressure 22:23:00 [facility] Heart rate 2019-06-26 83 /min University of :23:00 [facility] Body temperature 2019-06-26 36.39 Sandy University of ::00 [facility] Respiratory rate 2019-06-26 18 /min University of :23:00 [facility] Oxygen saturation 2019-06-26 99 /min [facility] of in Arterial blood 22:23:00 [facility] by Pulse oximetry Branch Body weight 2019-06-26 78.064 kg University of :43:00 [facility] BMI 2019-06-26 26.95 kg/m2 University of 09:43:00 [facility] Body height 2019-06-24 170.2 cm University of 20:53:00 [facility] Systolic blood 2019-02-06 121 mm[Hg] [facility] of pressure 02:21:00 [facility] Diastolic blood 2019-02-06 81 mm[Hg] University o f pressure 02:21:00 [facility] Heart rate 2019-02-06 77 /min University of 02:21:00 [facility] Respiratory rate 2019-02-06 23 /min University of 02:21:00 [facility] Oxygen saturation 2019-02-06 98 /min University of in Arterial blood 02:21:00 [facility] by Pulse oximetry Branch Body temperature 2019-02-05 36.33 Sandy [facility] of 22:27:00 [facility] Body height 2019-02-05 170.2 cm University of 22:27:00 [facility] Body weight 2019-02-05 81.647 kg University of 22:27:00 [facility] BMI 2019-02-05 28.19 kg/m2 [facility] of 22:27:00 [facility] Systolic blood 2019-01-29 96 mm[Hg] University of pressure 16:40:00 [facility] Diastolic blood 2019-01-29 66 mm[Hg] University o f pressure 16:40:00 [facility] Heart rate 2019-01-29 80 /min University of 16:40:00 [facility] Body temperature 2019-01-29 36.39 Sandy [facility] 16:40:00 [facility] Respiratory rate 2019-01-29 18 /min University of 16:40:00 [facility] Oxygen saturation 2019-01-29 99 /min University of in Arterial blood 16:40:00 [facility] by Pulse oximetry Branch Body height 2019-01-28 170.2 cm University of 16:45:00 [facility] Body weight 2019-01-28 82.101 kg University of 16:45:00 [facility] BMI 2019-01-28 28.35 kg/m2 University of 16:45:00 [facility] Systolic blood 2019-01-19 125 mm[Hg] University of pressure 17:20:00 [facility] Branch Diastolic blood 2019-01-19 69 mm[Hg] University o f pressure 17:20:00 [facility] Heart rate 2019-01-19 76 /min University of 17:20:00 [facility] Body temperature 2019-01-19 36.56 Sandy [facility] of 17:20:00 [facility] Respiratory rate 2019-01-19 16 /min [facility] 17:20:00 [facility] Oxygen saturation 2019-01-19 100 /min [facility] in Arterial blood 17:20:00 [facility] by Pulse oximetry [place] Body weight 2019-01-19 83.416 kg [facility] 08:42:00 [facility] BMI 2019-01-19 28.80 kg/m2 [facility] 08:42:00 [facility] Body height 2019-01-19 170.2 cm [facility] 01:10:00 [facility] Procedures Procedure Date / Time Performing Clinician Source Performed POCT GLUCOSE (AUTOMATED) 2021-01-04 Timur Gerardo [facility] 21:37:00 [facility] POCT GLUCOSE (AUTOMATED) 2021[facility]01-04 [facility] 18:[facility]00 [facility] NM MYOCARDIUM PERFUSION 2021-01-04 Ninfa Castillo [facility] STRESS AND REST 17:24:00 [facility] POCT GLUCOSE (AUTOMATED) 2021-01-04 Timur Gerardo [facility] 12:51:00 [facility] ACUTE CARE VENOUS BLOOD 2021-01-04 [facility] GAS 12:38:00 [facility] COMP. METABOLIC PANEL 2021-01-04 [facility] ([id number]) 10:28:00 [facility] CBC WITH DIFF 2021-01-04 Scott Granados [facility] 10:28:00 [facility] N-TERMINAL PRO-BNP 2021-01-04 [facility] 10:28:00 [facility] POCT GLUCOSE (AUTOMATED) 2021-01-04 Timur Gerardo [facility] 10:16:00 [facility] POCT GLUCOSE (AUTOMATED) 2021-01-04 Timur Gerardo [facility] 04:20:00 [facility] POCT GLUCOSE (AUTOMATED) 2021-01-04 [facility] 00:23:00 [facility] POCT GLUCOSE (AUTOMATED) 2021-01-03 Timur Gerardo [facility] 21:40:00 [facility] POCT GLUCOSE (AUTOMATED) 2021[facility]01[facility] 16[facility] POCT GLUCOSE (AUTOMATED) 2021-01-03 [facility] 12:28:00 Medical Branch COMP. METABOLIC PANEL 2021-01-03 Benji [facility] ([id number]) 08:21:00 [facility] N-TERMINAL PRO-BNP 2021-01-03 [facility] 08:21:00 Medical [facility] POCT GLUCOSE (AUTOMATED) 2021[facility]01-03 [facility] 02:55:00 [facility] POCT GLUCOSE (AUTOMATED) 2021-01-03 [facility] 00:41:00 Medical Branch POCT GLUCOSE (AUTOMATED) 2021-01-02 [facility] 21:47:00 Medical Branch POCT GLUCOSE (AUTOMATED) 2021-01-02 [facility] 16:42:00 Medical Branch TROPONIN I 2021-01-02 Benji [facility] xas 14:03:00 Medical Branch POCT GLUCOSE (AUTOMATED) 2021-01-02 [facility] 12:43:00 Medical Branch XR CHEST 1 VW 2021-01-02 Benji [facility] xas 10:55:38 [facility] ACUTE CARE VENOUS BLOOD 2021-01-02 Benji [facility] GAS 08:48:00 Medical Branch PHOSPHORUS 2021-01-02 Benji [facility] xas 08:47:00 [facility] MAGNESIUM 2021-01-02 Benji [facility] xas 08:47:00 Medical Branch TROPONIN I 2021-01-02 Benji [facility] xas 08:47:00 [facility] COMP. METABOLIC PANEL 2021-01-02 Benji [facility] ([id number]) 08:47:00 [facility] CBC WITH DIFF 2021-01-02 Benji [facility] xas 08:47:00 [facility] N-TERMINAL PRO-BNP 2021-01-02 Benji [facility] 08:47:00 Medical Branch POCT GLUCOSE (AUTOMATED) 2021-01-02 Timur Gerardo [facility] 02:01:00 Medical Branch VITAMIN B12, LEVEL 2021-01-02 Benji [facility] 01:43:00 Medical Branch TROPONIN I 2021-01-02 Benji [facility] xas 01:43:00 Medical Branch VITAMIN D, 25-OH 2021-01-02 Benji [facility] exas 01:43:00 Medical Branch HB ECG ROUTINE & RHYTHM 2021-01-02 Benji [facility] STRIP 01:30:[address] CHEST PULMONARY 2021-01-01 Juan José [facility] ANGIOGRAM 20:55:00 [facility] ACUTE CARE ARTERIAL 2021-01-01 Juan José [facility] BLOOD GAS 20:34:00 Medical Branch XR CHEST 1 VW 2021-01-01 Juan José [facility] xas 20:10:13 Medical Branch COVID-19 (ID NOW RAPID 2021-01-01 Juan José Siva [facility] TESTING) 19:36:00 Medical Branch LAB ONLY COVID 2021-01-01 Juan José [facility] xas INTERPRETATION 19:36:00 Medical Branch PHOSPHORUS 2021-01-01 Benji [facility] xas 19:34:00 Medical Branch URIC ACID 2021-01-01 Benji [facility] xas 19:34:00 Medical Branch MAGNESIUM 2021-01-01 Benji [facility] xas 19:34:00 Medical Branch TROPONIN I 2021-01-01 Juan José [facility] xas 19:34:00 Medical Branch THYROID STIMULATING 2021-01-01 Benji [facility] [place] HORMONE 19:34:00 Medical Branch COMP. METABOLIC PANEL 2021-01-01 Juan José [facility] ([id number]) 19:34:00 Medical Branch LIPID PANEL 2021-01-01 [facility] xas ([id number])(TOTAL 19:34:00 Medical Branch CHOLESTEROL, TRIGLYCERIDES, HDL) CBC WITH DIFF 2021-01-01 Juan José [facility] xas 19:34:00 Medical Branch GLYCOSYLATED HEMOGLOBIN 2021-01-01 Benji Adnan [facility] (A1C) 19:34:00 [facility] PROTHROMBIN TIME / INR 2021-01-01 Juan José [facility] 19:34:00 Medical Branch ACTIVATED PARTIAL 2021-01-01 Juan José [facility] THRMPLAS [place] 19:34:00 Medical [place] N-TERMINAL PRO-BNP 2021-01-01 Juan José [facility] 19:34:00 [facility] POCT GLUCOSE (AUTOMATED) 2021-01-01 Juan José [facility] 19:28:00 [facility] EKG-12 LEAD 2021-01-01 Benji [facility] xas 19:23:00 [facility] CONSENT/REFUSAL FOR 2021-01-01 Doctor Unassigned, [facility] DIAGNOSIS AND TREATMENT 19:12:03 Name [facility] POCT GLUCOSE (AUTOMATED) 2020-12-16 [facility] 20:56:00 [facility] POCT GLUCOSE (AUTOMATED) 2020-12-16 [facility] 16:49:00 [facility] POCT GLUCOSE (AUTOMATED) 2020-12-16 [facility] 12:31:00 [facility] BASIC METABOLIC PANEL 2020-12-16 [facility] (NA, K, CL, CO2, 09:15:00 [facility] GLUCOSE, BUN, CREATININE, CA) N-TERMINAL PRO-BNP 2020-12-16 Ninfa Castillo [facility] 09:15:00 [facility] POCT GLUCOSE (AUTOMATED) 2020-12-16 [facility] 00:43:00 [facility] POCT GLUCOSE (AUTOMATED) 2020-12-15 [facility] 21:40:00 [facility] GLYCOSYLATED HEMOGLOBIN 2020-12-15 [facility] 17:07:00 [facility] POCT GLUCOSE (AUTOMATED) [facility]12[facility] 16:51:00 [facility] TRANSTHORACIC ECHO (TTE) 2020-12-15 Janeth Goodson [facility] COMPLETE W/ CONTRAST 15:47:14 [facility] POCT GLUCOSE (AUTOMATED) 2020-12-15 [facility] 13:46:00 Medical Branch TROPONIN I 2020-12-15 Singer [facility] xas 10:07:00 Medical Branch LIPID PANEL 2020-12-15 Ninfa Castillo [facility] ([id number])(TOTAL 10:07:00 Medical Branch CHOLESTEROL, TRIGLYCERIDES, HDL) N-TERMINAL PRO-BNP 2020-12-15 Ninfa Castillo [facility] 10:07:00 Medical Branch MAGNESIUM 2020-12-15 Ana Maria Cardenas [facility] xas 08:05:00 Medical Branch TROPONIN I 2020-12-15 Singer [facility] xas 08:05:00 Medical Branch TROPONIN I 2020-12-15 Antonia Cedeno [facility] 02:17:00 Medical Branch COVID-19 (ID NOW RAPID 2020-12-15 Antonia Cedeno [facility] TESTING) 00:58:00 Medical Branch LAB ONLY COVID 2020-12-15 Antonia Cedeno [facility] INTERPRETATION 00:58:00 Medical Branch XR CHEST 1 VW 2020-12-15 Antonia Cedeno [facility] 00:10:32 Medical Branch LIPASE 2020-12-14 Janeth Goodson [facility] 23:30:00 Medical Branch TROPONIN I 2020-12-14 Janeth Goodson [facility] 23:30:00 Medical Branch COMP. METABOLIC PANEL 2020-12-14 Janeth Goodson [facility] ([id number]) 23:30:00 Medical Branch CBC WITH DIFF 2020-12-14 Janeth Goodson [facility] 23:30:00 Medical Branch GLYCOSYLATED HEMOGLOBIN 2020-12-14 Ninfa Castillo [facility] (A1C) 23:30:00 Medical Branch PROTHROMBIN TIME / INR 2020-12-14 Janeth Goodson [facility] 23:30:00 Medical Branch ACTIVATED PARTIAL 2020-12-14 Janeth Goodson [facility] THRMPLAS [place] 23:30:00 Medical Branch HB ECG ROUTINE & RHYTHM 2020-12-14 Janeth Goodson [facility] STRIP 22:59:19 Medical Branch INSURANCE CORRESPONDENCE 2020-11-16 Doctor Unassigned, No U [facility] 05:01:00 Name Medical [place] UPPER GI SMALL BOWEL 2020-10-28 Requisition, Paper [facility] SERIES 16:58:44 Medical Branch POCT URINALYSIS AUTO 2020-10-12 [facility] 19:31:00 Medical Branch CONSENT/REFUSAL FOR 2020-10-06 Doctor Unassigned, No [facility] DIAGNOSIS AND TREATMENT 15:43:46 [address] [facility] [address] ABDOMEN PELVIS WO 2020-09-28 [facility] CONTRAST 23:49:27 Medical Branch LIPASE 2020-09-28 [facility] 23:32[facility]00 [facility] COMP. METABOLIC PANEL 2020-09-28 Bay [facility] ([id number]) 23:32:00 Medical Branch CBC WITH DIFF 2020-09-28 [facility] 23:32:00 Medical Branch POCT GLUCOSE (AUTOMATED) 2020-09-26 [facility] 21:40:00 Medical Branch XR CHEST 1 VW 2020-09-26 [facility] xas 16:48:13 Medical Branch POCT GLUCOSE (AUTOMATED) 2020-09-26 [facility] 16:32:00 Medical Branch POCT GLUCOSE (AUTOMATED) 2020-09-26 [facility] 12:38:00 Medical Branch POCT GLUCOSE (AUTOMATED) 2020-09-26 [facility] 08:59:00 Medical Branch COMP. METABOLIC PANEL 2020-09-26 Benji [facility] ([id number]) 08:18:00 Medical Branch CBC WITH DIFF 2020-09-26 Benji [facility] xas 08:18:00 [facility] N-TERMINAL PRO-BNP 2020-09-26 Benji [facility] 08:18:00 Medical Branch POCT GLUCOSE (AUTOMATED) 2020-09-26 [facility] 08:15:00 Medical Branch POCT GLUCOSE (AUTOMATED) 2020-09-25 [facility] 21:54:00 Medical Branch POCT GLUCOSE (AUTOMATED) 2020-09-25 [facility] 16:52:00 Medical Branch POCT GLUCOSE (AUTOMATED) 2020-09-25 [facility] 12:49:00 Medical Branch MAGNESIUM 2020-09-25 Benji [facility] xa 10:39:00 Medical Branch COMP. METABOLIC PANEL 2020-09-25 Benji [facility] ([id number]) 10:39:00 Medical Branch CBC WITH DIFF 2020-09-25 [facility] xas 10:39:00 Medical Branch N-TERMINAL PRO-BNP 2020-09-25 [facility] 10:39:00 Medical Branch POCT GLUCOSE (AUTOMATED) 2020-09-24 [facility] 21:19:00 Medical Branch POCT GLUCOSE (AUTOMATED) 2020-09-24 [facility] 17:02:00 Medical Branch POCT GLUCOSE (AUTOMATED) 2020-09-24 [facility] 12:47:00 [facility] FECES CULTURE 2020-09-24 Benji [facility] xa 11:46:00 Medical Branch OCCULT (GUAIAC) BLOOD 2020-09-24 [facility] 11:46:00 [facility] FECAL LEUKOCYTES 2020-09-24 Benji [facility] exas 11:46:00 [facility] FECAL PATHOGENS BY PCR 2020-09-24 Benji [facility] 11:46:00 Medical Branch TROPONIN I 2020-09-24 Benji [facility] xas 10:57:00 Medical Branch COMP. METABOLIC PANEL 2020-09-24 Benji [facility] ([id number]) 10:57:00 Medical Branch CBC WITH DIFF 2020-09-24 Benji [facility] xas 10:57:00 Medical Branch N-TERMINAL PRO-BNP 2020-09-24 Benji [facility] 10:57:00 Medical Branch CLOSTRIDIUM DIFFICILE 2020-09-24 Benji [facility] TOXIN 07:37:00 Medical Branch VITAMIN B12, LEVEL 2020-09-24 Benji [facility] 03:16:00 [facility] TROPONIN I 2020-09-24 Benji [facility] xas 03:16:00 [facility] IRON PANEL 2020-09-24 Benji [facility] xas 03:16:00 Medical Branch SEDIMENTATION RATE 2020-09-24 Benji [facility] 03:16:00 [facility] GLYCOSYLATED HEMOGLOBIN 2020-09-24 Benji [facility] (A1C) 03:16:00 [facility] VITAMIN D, 25-OH 2020-09-24 Benji, [facility] exas 03:16:00 Medical Branch PROCALCITONIN 2020-09-24 Benji [facility] xas 03:16:00 Medical Branch POCT GLUCOSE (AUTOMATED) 2020-09-24 Blake Fernandez [facility] 01:11:00 Medical Branch CRITICAL CARE 2020-09-23 Juan José [facility] xa 23:17:14 [facility] CT ABDOMEN PELVIS W 2020-09-23 Juan José Siva [facility] CONTRAST 21:46:[address] THORAX W CONTRAST 2020-09-23 Juan José [facility] 21:46:43 [facility] URINALYSIS 2020-09-23 Juan José [facility] xas 20:22:00 [facility] URINE CULTURE 2020-09-23 Juan José [facility] xas 20:22:00 [facility] HB ECG ROUTINE & RHYTHM 2020-09-23 Juan José Siva [facility] STRIP 19:38:23 Medical Branch HB ABO GROUPING 2020-09-23 Juan José [facility] xas 19:26:00 Medical Branch PHOSPHORUS 2020-09-23 Benji [facility] xas 19:24:00 Medical Branch CREATINE KINASE 2020-09-23 Benji [facility] xas 19:24:00 Medical Branch URIC ACID 2020-09-23 Benji [facility] xas 19:24:00 Medical Branch LIPASE 2020-09-23 Juan José [facility] xa 19:24:00 Medical Branch MAGNESIUM 2020-09-23 Benji [facility] 19:24:00 [facility] FERRITIN SERUM 2020-09-23 Benji [facility] xas 19:24:00 [facility] TROPONIN I 2020-09-23 Juan José [facility] xa 19:24:00 [facility] THYROID STIMULATING 2020-09-23 Benji [facility] [place] HORMONE 19:24:00 [facility] HEPATIC FUNCTION PANEL 2020-09-23 [facility] ([id number] (ALB,T.PRO,BILI 19:24:00 Medical Branch T,BU/BC,ALT,AST,ALK PHOS) BASIC METABOLIC PANEL 2020-09-23 [facility] (NA, K, CL, CO2, 19:24:00 Medical Branch GLUCOSE, BUN, CREATININE, CA) LIPID PANEL 2020-09-23 Benji [facility] ([id number])(TOTAL 19:24:00 Medical Branch CHOLESTEROL, TRIGLYCERIDES, HDL) CBC WITH DIFF 2020-09-23 Juan José [facility] 19:24:00 [facility] PROTHROMBIN TIME / INR 2020-09-23 [facility] 19:24:00 [facility] ACTIVATED PARTIAL 2020-09-23 Juan [facility] THRMPLAS [place] 19:24:00 [facility] N-TERMINAL PRO-BNP 2020-09-23 Juan JoséOn license of [facility] 19:24:00 [facility] COVID-19 (ID NOW RAPID 2020-09-23 [facility] 19:24:00 [facility] XR CHEST 1 VW 2020-09-23 [facility] 19:09:04 [facility] EMERGENCY DEPARTMENT 2020-09-23 Doctor Unassigned, No [facility] DOCUMENTS 05:01:00 Name Medical Branch POCT GLUCOSE (AUTOMATED) 2020-09-07 Jose Hill [facility] 17:29:00 [facility] POCT GLUCOSE (AUTOMATED) 2020-09-07 Jose Hill [facility] 13:33:00 Medical Branch POCT GLUCOSE (AUTOMATED) 2020-09-07 Liz [facility] 01:50:00 Medical Branch POCT GLUCOSE (AUTOMATED) [facility] 14:[facility] POCT GLUCOSE (AUTOMATED) [facility] 02:45:00 [facility] POCT GLUCOSE (AUTOMATED) 2020[facility] 14[facility]00 [facility] CBC WITH DIFF 2020-09-[facility]:11[facility] POCT GLUCOSE (AUTOMATED) 2020-09-05 [facility] 01:12:00 [facility] POCT GLUCOSE (AUTOMATED) 2020-09[facility] 21:19:00 [facility] POCT GLUCOSE (AUTOMATED) 2020-09-04 [facility] 15:40:00 [facility] LIPASE 2020-09-04 [facility] 15:19:00 [facility] POCT GLUCOSE (AUTOMATED) 2020-[facility] 14:15:00 [facility] POCT GLUCOSE (AUTOMATED) 2020-09-[facility] 23:41:00 [facility] POCT GLUCOSE (AUTOMATED) 2020-09-03 Brooks [facility] 15:22:00 [facility] URINE CULTURE 2020-09-[facility]:03[facility] POCT GLUCOSE (AUTOMATED) 2020-09-03 Brooks [facility] 08:15:00 Medical Branch POCT GLUCOSE (AUTOMATED) 2020-09-03 Brooks [facility] 07:39:00 [facility] BLOOD CULTURE SCREEN 2020-09-03 Brooks [facility] 01:31:00 [facility] XR CHEST 1 VW 2020-09-02 [facility] 23:33:33 [facility] COVID-19 (ID NOW RAPID 2020-09-02 [facility] 23:15:00 [facility] LAB ONLY COVID 2020-09-02 Brooks August[facility] xa INTERPRETATION 23:15:00 [facility] BLOOD CULTURE SCREEN 2020-09-02 [facility] 23:12:00 [facility] LIPASE 2020-09-02 [facility] 23:12:00 [facility] HEPATIC FUNCTION PANEL 2020-09-02 [facility] ([id number]) (ALB,T.PRO,BILI 23:12:00 [facility] T,BU/BC,ALT,AST,ALK PHOS) BASIC METABOLIC PANEL 2020-09-02 [facility] (NA, K, CL, CO2, 23:12:00 [facility] GLUCOSE, BUN, CREATININE, CA) N-TERMINAL PRO-BNP 2020-09-02 [facility] 23:12:00 [facility] LACTIC ACID WHOLE BLOOD 2020-09-02 Shane [facility] 23:12:00 [facility] TROPONIN I 2020-09-02 Brooks August[facility] xas 22:20:00 [facility] COMP. METABOLIC PANEL 2020-09-02 Brooks [facility] ([id number]) 22:20:00 [facility] CBC WITH DIFF 2020-09-02 Brooks Augusta [facility] xas 22:20:00 [facility] PROTHROMBIN TIME / INR 2020-09-02 [facility] 22:20:00 [facility] [id number] 2020-08-11 ALDMO [facility] 00:00:00 [facility] [id number] 2020-08-11 ALDMO [facility] 00:00:00 [facility] [id number] 2020-08-11 ALDMO [facility] 00:00:00 [facility] [id number] 2020-08-11 ALDMO [facility] 00:00:00 [facility] ACTIVATED PARTIAL 2020-08-06 Cody Braxton [facility] THRMPLAS [place] 18:59:00 [facility] POCT GLUCOSE (AUTOMATED) 2020-08-06 Johnie Skinner [facility] 14:26:00 [facility] BASIC METABOLIC PANEL 2020-08-06 [facility] (NA, K, CL, CO2, 10:17:00 [facility] GLUCOSE, BUN, CREATININE, CA) CBC WITH DIFF 2020-08-06 Cody Braxton [facility] 10:17:00 Medical Branch ACTIVATED PARTIAL 2020-08-06 Cody Braxton [facility] THRLAS [place] 02:56:00 Medical Branch POCT GLUCOSE (AUTOMATED) 2020-08-06 Johnie Skinner [facility] 02:19:00 Medical Branch POCT GLUCOSE (AUTOMATED) 2020-08-05 Johnie Skinner [facility] 23:24:00 Medical Branch ACTIVATED PARTIAL 2020-08-05 Cody Braxton [facility] 18:23:00 Medical Branch MAGNESIUM 2020-08-05 [facility] 05:01:00 [facility] BASIC METABOLIC PANEL 2020-08-05 [facility] (NA, K, CL, CO2, 05:01:00 [facility] GLUCOSE, BUN, CREATININE, CA) CBC WITH DIFF 2020-08-05 Cody Braxton [facility] 05:01:00 Medical Branch ACTIVATED PARTIAL 2020-08-05 Cody Braxton [facility] 05:00:00 [facility] POCT GLUCOSE (AUTOMATED) 2020-08-05 Johnie Skinner [facility] 01:56:00 Medical Branch ACTIVATED PARTIAL 2020-08-04 Ross Irais [facility] THRLAS [place] 16:50:00 Medical Branch POCT GLUCOSE (AUTOMATED) 2020-08-04 Johnie Skinner [facility] [facility] 13:57:00 Medical Branch BASIC METABOLIC PANEL 2020-08-04 [facility] ([facility], K, CL, CO2, 09:21:00 Medical Branch GLUCOSE, BUN, CREATININE, CA) CBC WITH DIFF 2020-08-04 Cody Braxton [facility] 09:21:00 Medical Branch POCT GLUCOSE (AUTOMATED) 2020-08-04 Johnie Skinner [facility] 03:54:00 Medical Branch ACTIVATED PARTIAL 2020-08-04 [facility] 01:28:00 Medical Branch POCT GLUCOSE (AUTOMATED) 2020-08-03 Johnie Skinner [facility] 22:16:00 Medical Branch POCT GLUCOSE (AUTOMATED) 2020-08-[address] [facility] 17:57:00 Medical Branch HB ABO GROUPING 2020-08-03 Marlin [facility] xas 13:26:00 Medical Branch BELOW THE KNEE 2020-08-03 Tato Shearer Gisela [facility] AMPUTATION 12:42:00 Medical Branch BASIC METABOLIC PANEL 2020-08-03 [facility] (NA, K, CL, CO2, 07:30:00 [facility] GLUCOSE, BUN, CREATININE, CA) CBC WITH DIFF 2020-08-03 Cody Braxton [facility] 07:30:00 Medical Branch ACTIVATED PARTIAL 2020-08-03 Cody Braxton [facility] THRLAS [place] 07:29:00 Medical Branch POCT GLUCOSE (AUTOMATED) 2020-08-03 [facility] 02:22:00 Medical Branch POCT GLUCOSE (AUTOMATED) 2020-08-02 [facility] 23:05:00 Medical Branch COVID-19 (ID NOW RAPID 2020-08-02 [facility] TESTING) 20:40:00 [facility] POCT GLUCOSE (AUTOMATED) 2020-08-02 [facility] 18:31:00 Medical Branch ACTIVATED PARTIAL 2020-08-02 Cody Braxton [facility] THRLAS [place] 18:26:00 Medical Branch POCT GLUCOSE (AUTOMATED) 2020-08-02 [facility] 13:48:00 Medical Branch ACTIVATED PARTIAL 2020-08-02 Cody Braxton [facility] THRLAS [place] 10:54:00 Medical Branch BASIC METABOLIC PANEL 2020-08-02 [facility] (NA, K, CL, CO2, 10:53:00 [facility] GLUCOSE, BUN, CREATININE, CA) CBC WITH DIFF 2020-08-02 Ross Irais, [facility] 10:53:00 Medical Branch ACTIVATED PARTIAL 2020-08-02 Ross Irais, [facility] THRLAS [place] 05:57:00 Medical Branch POCT GLUCOSE (AUTOMATED) 2020-08-02 [facility] 01:44:00 Medical Branch ACTIVATED PARTIAL 2020-08-01 Ross Irais, [facility] THRLAS [place] 20:33:00 Medical Branch POCT GLUCOSE (AUTOMATED) 2020-08-01 [facility] 14:52:00 Medical Branch BASIC METABOLIC PANEL 2020-08-01 [facility] (NA, K, CL, CO2, 10:25:00 [facility] GLUCOSE, BUN, CREATININE, CA) CBC WITH DIFF 2020-08-01 Ross Irais, [facility] 10:25:00 Medical Branch ACTIVATED PARTIAL 2020-08-01 Ross Irais, [facility] 10:25:00 Medical Branch POCT GLUCOSE (AUTOMATED) 2020-08-01 [facility] 02:28:00 Medical Branch POCT GLUCOSE (AUTOMATED) 2020-07-31 [facility] 23:14:00 Medical Branch ACTIVATED PARTIAL 2020-07-31 Ross Irais, [facility] 23:06:00 Medical Branch POCT GLUCOSE (AUTOMATED) 2020-07-31 [facility] 19:02:00 Medical Branch POCT GLUCOSE (AUTOMATED) 2020-07-31 [facility] 14:11:00 Medical Branch CBC WITH DIFF 2020-07-31 Ross Irais, [facility] 12:27:00 Medical Branch PROTHROMBIN TIME / INR 2020-07-[address] [facility] 12:27:00 Medical Branch ACTIVATED PARTIAL 2020-07-31 Cody Braxton [facility] THRMPLAS [place] 12:27:00 Medical Branch COMP. METABOLIC PANEL 2020-07-31 Cody Braxton [facility] ([id number]) 12:26:00 Medical Branch POCT GLUCOSE (AUTOMATED) 2020-07-31 [facility] 02:10:00 Medical Branch POCT GLUCOSE (AUTOMATED) 2020-07-30 [facility] 22:37:00 Medical Branch POCT GLUCOSE (AUTOMATED) 2020-07-30 [facility] 14:06:00 Medical Branch BASIC METABOLIC PANEL 2020-07-30 Brendan [facility] (NA, K, CL, CO2, 11:54:00 Medical Branch GLUCOSE, BUN, CREATININE, CA) CBC WITH DIFF 2020-07-30 Brendan [facility] xa 11:54:00 Medical Branch N-TERMINAL PRO-BNP 2020-07-30 Antonia Hough [facility] 11:54:00 Medical Branch POCT GLUCOSE (AUTOMATED) 2020-07-30 [facility] 01:59:00 Medical Branch POCT GLUCOSE (AUTOMATED) 2020-07-29 [facility] 22:40:00 Medical Branch POCT GLUCOSE (AUTOMATED) 2020-07-29 [facility] 16:58:00 Medical Branch POCT GLUCOSE (AUTOMATED) 2020-07-29 [facility] 13:34:00 Medical Branch BASIC METABOLIC PANEL 2020-07-29 Brendan [facility] (NA, K, CL, CO2, 09:54:00 Medical Branch GLUCOSE, BUN, CREATININE, CA) CBC WITH DIFF 2020-07-29 Brendan [facility] xa 09:54:00 Medical Branch POCT GLUCOSE (AUTOMATED) 2020-07-29 [facility] 02:25:00 Medical Branch POCT GLUCOSE (AUTOMATED) 2020-07-28 Brendan [facility] 22:42:00 Medical Branch POCT GLUCOSE (AUTOMATED) 2020-07-28 Minnie Cardona [facility] 17:53:00 Medical Branch EVIE MULTI LEVEL - BY 2020-07-28 [facility] VASCULAR LAB 15:30:00 [facility] DUPLEX ARTERIAL LEG 2020-07-28 [facility] RIGHT - BY VASCULAR LAB 14:55:00 Medical Branch POCT GLUCOSE (AUTOMATED) 2020-07-28 [facility] 13:18:00 [facility] TROPONIN I 2020-07-28 [facility] xas 09:36:00 [facility] BASIC METABOLIC PANEL 2020-07-28 Brendan [facility] (NA, K, CL, CO2, 09:36:00 Medical Branch GLUCOSE, BUN, CREATININE, CA) CBC WITH DIFF 2020-07-28 Brendan [facility] xa 09:36:00 [facility] TROPONIN I 2020-07-28 [facility] xa 04:35:00 [facility] N-TERMINAL PRO-BNP 2020-07-28 Travis [facility] 04:35:00 [facility] POCT GLUCOSE (AUTOMATED) 2020-07-28 [facility] 02:15:00 [facility] PROTHROMBIN TIME / INR 2020-07-27 Brendan [facility] 23:36:00 [facility] ACTIVATED PARTIAL 2020-07-27 Brendan [facility] THRMPLAS [place] 23:36:00 [facility] POCT GLUCOSE (AUTOMATED) 2020-07-27 [facility] 22:54:00 [facility] POCT GLUCOSE (AUTOMATED) 2020-07-27 Brendan [facility] 20:52:00 [facility] XR CHEST 1 VW 2020-07-27 [facility] xas 18:46:24 [facility] POCT GLUCOSE (AUTOMATED) 2020-07-27 [facility] 18:31:00 Medical Branch LIPASE 2020-07-27 Singer [facility] xas 18:24:00 Medical Branch MAGNESIUM 2020-07-27 [facility] 18:24:00 Medical Branch TROPONIN I 2020-07-27 [facility] 18:24:00 Medical Branch COMP. METABOLIC PANEL 2020-07-27 [facility] ([id number]) 18:24:00 Medical Branch CBC WITH DIFF 2020-07-27 [facility] xas 18:24:00 Medical Branch PROTHROMBIN TIME / INR 2020-07-27 [facility] 18:24:00 Medical Branch ACTIVATED PARTIAL 2020-07-27 Minnie Cardona [facility] THRMPLAS [place] 18:24:00 [facility] N-TERMINAL PRO-BNP 2020-07-27 [facility] 18:24:00 [facility] COVID-19 (ID NOW RAPID 2020-07-27 [facility] TESTING) 18:24:00 Medical Branch LAB ONLY COVID 2020-07-27 [facility] xa INTERPRETATION 18:24:00 Medical [place] HB ECG ROUTINE & RHYTHM 2020-07-27 [facility] 18:15:35 [facility] EMERGENCY DEPARTMENT 2020-07-27 Doctor Unassigned, No [facility] DOCUMENTS 06:01:00 Name [facility] HOSPITAL ADMISSION 2020-07-27 Doctor Unassigned, No [facility] 06:01:00 Name [facility] POCT GLUCOSE (AUTOMATED) 2020-07-20 [facility] 23:32:00 Medical Branch POCT GLUCOSE (AUTOMATED) 2020-07-20 Cara [facility] 19:31:00 [facility] IRON PANEL 2020-07-20 [facility] 19:19:00 Medical Branch FIBRINOGEN 2020-07-20 [facility] 19:19:00 Medical Branch CBC WITHOUT DIFF 2020-07-20 Tatiana [facility] exas 19:18:00 Medical Branch HB ABO GROUPING 2020-07-20 Isiah [facility] xas 17:09:00 Medical Branch FERRITIN SERUM 2020-07-20 [facility] 10:05:00 Medical Branch BASIC METABOLIC PANEL 2020-07-20 Dawit Cardona [facility] (NA, K, CL, CO2, 10:05:00 Medical Branch GLUCOSE, BUN, CREATININE, CA) CBC WITH DIFF 2020-07-20 Alex Cardonaaham Francois [facility] 10:05:00 Medical Branch POCT GLUCOSE (AUTOMATED) 2020-07-19 [facility] 23:58:00 Medical Branch CBC WITHOUT DIFF 2020-07-19 [facility] 20:46:00 Medical Branch POCT GLUCOSE (AUTOMATED) 2020-07-19 [facility] 20:11:00 Medical Branch POCT GLUCOSE (AUTOMATED) 2020-07-19 [facility] 15:54:00 Medical Branch MAGNESIUM 2020-07-19 Brendan [facility] 09:32:00 Medical Branch BASIC METABOLIC PANEL 2020-07-19 [facility] (NA, K, CL, CO2, 09:32:00 Medical Branch GLUCOSE, BUN, CREATININE, CA) CT FOOT RIGHT W CONTRAST 2020-07-18 Isiah [facility] 21:01:00 Medical Branch POCT GLUCOSE (AUTOMATED) 2020-07-18 [facility] 17:36:00 Medical Branch CBC WITH DIFF 2020-07-18 [facility] 17:33:00 Medical Branch POCT GLUCOSE (AUTOMATED) 2020-07-18 [facility] 15:50:00 Medical Branch POCT GLUCOSE (AUTOMATED) 2020-07-18 [facility] 00:16:00 Medical Branch FL TIME OR 2020-07-17 Avtar Finney [facility] xas (NON-REPORTABLE) 21:52:00 Medical Branch ARTERIOGRAM 2020-07-17 [facility] 16:32:00 Medical Branch POCT GLUCOSE (AUTOMATED) 2020-07-17 [facility] 16:25:00 Medical Branch BASIC METABOLIC PANEL 2020-07-17 [facility] (NA, K, CL, CO2, 10:32:00 Medical Branch GLUCOSE, BUN, CREATININE, CA) CBC WITH DIFF 2020-07-17 Isiah [facility] xas 10:32:00 Medical Branch POCT GLUCOSE (AUTOMATED) 2020-07-17 [facility] 00:45:00 Medical Branch POCT GLUCOSE (AUTOMATED) 2020-07-17 [facility] 00:32:00 Medical Branch COVID-19 (ID NOW RAPID 2020-07-16 Tony [facility] TESTING) 21:28:00 Medical Branch LAB ONLY COVID 2020-07-16 Tony [facility] INTERPRETATION 21:28:00 Medical Branch HB ABO GROUPING 2020-07-16 Tony [facility] 21:22:00 Medical Branch POCT GLUCOSE (AUTOMATED) 2020-07-16 [facility] 21:13:00 Medical Branch POCT GLUCOSE (AUTOMATED) 2020-07-16 [facility] 15:38:00 Medical Branch BASIC METABOLIC PANEL 2020-07-16 [facility] (NA, K, CL, CO2, 10:48:00 Medical Branch GLUCOSE, BUN, CREATININE, CA) CBC WITH DIFF 2020-07-16 [facility] xa 10:48:00 Medical Branch POCT GLUCOSE (AUTOMATED) 2020-07-15 [facility] 23:20:00 Medical Branch POCT GLUCOSE (AUTOMATED) 2020-07-15 [facility] 18:56:00 Medical Branch MAGNESIUM 2020-07-15 [facility] xa 10:32:00 Medical Branch C-REACTIVE PROTEIN 2020-07-15 [facility] 10:32:00 Medical Branch BASIC METABOLIC PANEL 2020-07-15 [facility] (NA, K, CL, CO2, 10:32:00 Medical Branch GLUCOSE, BUN, CREATININE, CA) SEDIMENTATION RATE 2020-07-15 [facility] 10:32:00 Medical Branch POCT GLUCOSE (AUTOMATED) 2020-07-14 Elvis Janeth [facility] 22:45:00 Medical Branch VANCOMYCIN TROUGH 2020-07-14 Brendan [facility] 21:34:00 Medical Branch POCT GLUCOSE (AUTOMATED) 2020-07-14 [facility] 18:01:00 Medical Branch POCT GLUCOSE (AUTOMATED) 2020-07-14 Elvis [facility] 13:40:00 Medical Branch BASIC METABOLIC PANEL 2020-07-14 [facility] (NA, K, CL, CO2, 10:42:00 Medical Branch GLUCOSE, BUN, CREATININE, CA) CBC WITH DIFF 2020-07-14 [facility] xas 10:42:00 Medical Branch PROTHROMBIN TIME / INR 2020-07-14 Antonia Hough [facility] 10:42:00 Medical Branch POCT GLUCOSE (AUTOMATED) 2020-07-13 [facility] 22:31:00 Medical Branch EVIE MULTI LEVEL BY 2020-07-13 Brendan [facility] VASCULAR LAB 20:32:13 Medical Branch POCT GLUCOSE (AUTOMATED) 2020-07-13 [facility] 17:36:00 Medical Branch UNILATERAL DUPLEX SCAN 2020-07-13 Chad Mancera [facility] OF ARTERY BY VASCULAR 16:17:21 Medical anch LAB POCT GLUCOSE (AUTOMATED) 2020-07-13 [facility] 13:53:00 Medical Branch BASIC METABOLIC PANEL 2020-07-13 [facility] (NA, K, CL, CO2, 09:35:00 Medical Branch GLUCOSE, BUN, CREATININE, CA) CBC WITH DIFF 2020-07-13 [facility] xas 09:35:00 Medical Branch POCT GLUCOSE (AUTOMATED) 2020-07-13 [facility] 01:42:00 Medical Branch POCT GLUCOSE (AUTOMATED) 2020-07-12 [facility] 21:52:00 [facility] VANCOMYCIN TROUGH 2020-07-12 [facility]00 Medical Branch POCT GLUCOSE (AUTOMATED) 2020-07-12 Janeth Goodson [facility] 17:18:00 Medical Branch POCT GLUCOSE (AUTOMATED) 2020-07-12 Elvis Janeth [facility] 13:31:00 Medical Branch BASIC METABOLIC PANEL 2020-07-12 [facility] (NA, K, CL, CO2, 09:48:00 Medical Branch GLUCOSE, BUN, CREATININE, CA) CBC WITH DIFF 2020-07-12 [facility] xas 09:48:00 Medical Branch GLYCOSYLATED HEMOGLOBIN 2020-07-12 Antonia Hough [facility] (A1C) 09:48:00 Medical Branch POCT GLUCOSE (AUTOMATED) 2020-07-12 Janeth Goodson [facility] 02:12:[address] HEAD WO CONTRAST 2020-07-11 [facility] 23:52:10 Medical Branch POCT GLUCOSE (AUTOMATED) 2020-07-11 Janeth Goodson [facility] 22:16:00 Medical Branch POCT GLUCOSE (AUTOMATED) 2020-07-11 Janeth Goodson [facility] 17:29:00 Medical Branch POCT GLUCOSE (AUTOMATED) 2020-07-11 Elvisra [facility] 16:39:00 Medical Branch POCT GLUCOSE (AUTOMATED) 2020-07-11 Janeth Goodson [facility] 13:36:00 Medical Branch BLOOD CULTURE SCREEN 2020-07-11 [facility] 12:35:00 Medical Branch BLOOD CULTURE SCREEN 2020-07-11 [facility] 12:34:00 Medical Branch XR FOOT <3 VW RIGHT 2020-07-11 Janeth Goodson [facility] 02:03:59 Medical Branch HEPATIC FUNCTION PANEL 2020-07-11 Janeth Goodson [facility] ([id number]) (ALB,T.PRO,BILI 01:54:00 Medical Branch T,BU/BC,ALT,AST,ALK PHOS) BASIC METABOLIC PANEL 2020-07-11 Janeth Goodson [facility] (NA, K, CL, CO2, 01:54:00 Medical Branch GLUCOSE, BUN, CREATININE, CA) SEDIMENTATION RATE 2020-07-11 Janeth Goodson [facility] 01:54:00 Medical Branch CBC WITH DIFF 2020-07-11 Janeth Goodson [facility] 01:54:00 Medical Branch PROTHROMBIN TIME / INR 2020-07-11 Janeth Goodson [facility] 01:54:00 Medical Branch COVID-19 (ID NOW RAPID 2020-07-11 Janeth Goodson [facility] TESTING) 01:54:00 Medical Branch LAB ONLY COVID 2020-07-11 Janeth Goodson [facility] INTERPRETATION 01:54:00 Medical Branch EMERGENCY DEPARTMENT 2020-07-10 Doctor Unassigned, No [facility] DOCUMENTS 06:01:00 Name Medical [place] HOSPITAL ADMISSION 2020-07-10 Doctor Unassigned, No [facility] 06:01:00 Name [facility] POCT GLUCOSE (AUTOMATED) 2020-06-02 Timur Gerardo [facility] 17:46:00 Medical Branch POCT GLUCOSE (AUTOMATED) 2020-06-02 Humaira [facility] 13:39:00 [facility] COMP. METABOLIC PANEL 2020-06-02 Edgardo [facility] ([id number]) 10:36:00 Medical Branch CBC WITH DIFF 2020-06-02 Edgardo [facility] xas 10:36:00 Medical Branch PROTHROMBIN TIME / INR 2020-06-02 Timur Gerardo [facility] 10:36:00 Medical Branch POCT GLUCOSE (AUTOMATED) 2020-06-02 Timur Gerardo [facility] 10:34:00 Medical Branch POCT GLUCOSE (AUTOMATED) 2020-06-02 Timur Gerardo [facility] 03:18:00 Medical [place] POCT GLUCOSE (AUTOMATED) 2020-06-02 Timur Gerardo [facility] 02:14:00 Medical Branch POCT GLUCOSE (AUTOMATED) 2020-06-01 Humaira [facility] 23:10:00 Medical Branch POCT GLUCOSE (AUTOMATED) 2020-06-01 Humaira [facility] 17:35:00 Medical Branch POCT GLUCOSE (AUTOMATED) 2020-06-01 Humaira [facility] 13:43:00 Medical Branch POCT GLUCOSE (AUTOMATED) 2020-06-01 Edgardojuice [facility] 02:28:00 Medical Branch POCT GLUCOSE (AUTOMATED) 2020-05-31 Edgardojuice [facility] 23:08:00 Medical Branch POCT GLUCOSE (AUTOMATED) 2020-05-31 Edgardojuice [facility] 17:52:00 Medical Branch POCT GLUCOSE (AUTOMATED) 2020-05-31 Edgardo [facility] 13:34:00 Medical Branch BASIC METABOLIC PANEL 2020-05-31 [facility] (NA, K, CL, CO2, 10:36:00 Medical Branch GLUCOSE, BUN, CREATININE, CA) CBC WITH DIFF 2020-05-31 [facility] 10:36:00 Medical Branch PROTHROMBIN TIME / INR 2020-05-31 [facility] 10:36:00 Medical Branch POCT GLUCOSE (AUTOMATED) 2020-05-31 Edgardo [facility] 01:51:00 Medical Branch POCT GLUCOSE (AUTOMATED) 2020-05-30 [facility] 22:45:00 Medical Branch POCT GLUCOSE (AUTOMATED) 2020-05-30 [facility] 18:01:00 Medical Branch POCT GLUCOSE (AUTOMATED) 2020-05-30 [facility] 14:28:00 Medical Branch BASIC METABOLIC PANEL 2020-05-30 [facility] ([facility], K, CL, CO2, 09:29:00 Medical Branch GLUCOSE, BUN, CREATININE, CA) CBC WITH DIFF 2020-05-30 [facility] xa 09:29:00 Medical Branch POCT GLUCOSE (AUTOMATED) 2020-05-30 [facility] 01:54:00 Medical Branch PROTHROMBIN TIME / INR 2020-05-30 Antonia Hough [facility] 01:52:00 Medical Branch LACTIC ACID WHOLE BLOOD 2020-05-30 [facility] 01:51:00 Medical Branch POCT GLUCOSE (AUTOMATED) 2020-05-29 EdgardojuiceTimur [facility] 22:47:00 Medical Branch COVID-19 (ID NOW RAPID 2020-05-29 [facility] TESTING) 19:47:00 Medical Branch LAB ONLY COVID 2020-05-29 [facility] xas INTERPRETATION 19:47:00 Medical Branch XR FEMUR 2 VW LEFT 2020-05-29 [facility] 16:28:10 Medical Branch XR FOOT <3 VW RIGHT 2020-05-29 [facility] [place] 16:28:10 Medical Branch BLOOD CULTURE SCREEN 2020-05-29 [facility] 15:52:00 Medical Branch COMP. METABOLIC PANEL 2020-05-29 [facility] ([id number]) 15:52:00 Medical Branch CBC WITH DIFF 2020-05-29 [facility] xas 15:52:00 Medical Branch LACTIC ACID WHOLE BLOOD 2020-05-29 [facility] 15:50:00 Medical Branch EKG-12 LEAD 2020-05-29 [facility] xas 15:34:13 Medical Branch EMERGENCY DEPARTMENT 2020-05-29 Doctor Unassigned, No [facility] DOCUMENTS 06:01:00 Name Medical Branch PHYSICIAN ORDERS 2020-04-23 Doctor Unassigned, No [facility] 06:01:00 Name Medical Branch POCT GLUCOSE (AUTOMATED) 2020-03-26 [facility]ato [facility] 22:37:00 Medical Branch POCT GLUCOSE (AUTOMATED) 2020-03-26 [facility] 18:58:00 Medical Branch POCT GLUCOSE (AUTOMATED) 2020-03-26 Tato Shearer [facility] 14:07:00 Medical Branch POCT GLUCOSE (AUTOMATED) 2020-03-26 [facility] 09:52:00 Medical Branch POCT GLUCOSE (AUTOMATED) 2020-03-26 [facility] 06:05:00 Medical Branch POCT GLUCOSE (AUTOMATED) 2020-03-26 [facility] [place] 05:52:00 [facility] POCT GLUCOSE (AUTOMATED) 2020-03-26 [...] (AUTOMATED) 2020-03-25 Tato [facility] [place] 13:18:00 Medical Branch POCT GLUCOSE (AUTOMATED) 2020-03-25 Tato [facility] [place] 10:08:00 Medical Branch POCT GLUCOSE (AUTOMATED) 2020-03-25 Tato Shearer [facility] [place] 06:36:00 Medical Branch POCT GLUCOSE (AUTOMATED) 2020-03-25 Tato [facility] [place] 02:00:00 Medical Branch POCT GLUCOSE (AUTOMATED) 2020-03-24 Tato Shearer [facility] [place] 22:43:00 Medical Branch POCT GLUCOSE (AUTOMATED) 2020-03-24 Tato [facility] [place] 17:59:00 Medical Branch POCT GLUCOSE (AUTOMATED) 2020-03-24 Tato Shearer [facility] [place] 13:26:00 Medical Branch POCT GLUCOSE (AUTOMATED) 2020-03-24 Tato Shearer [facility] [place] 10:31:00 Medical Branch CBC WITH DIFF 2020-03-24 [facility] [place] 09:58:00 Medical Branch POCT GLUCOSE (AUTOMATED) 2020-03-24 Tato [facility] [place] 05:59:00 Medical Branch POCT GLUCOSE (AUTOMATED) 2020-03-24 Tato Shearer [facility] [place] 01:34:00 Medical Branch POCT GLUCOSE (AUTOMATED) 2020-03-23 Tato Shearer [facility] [place] 23:32:00 Medical Branch POCT GLUCOSE (AUTOMATED) 2020-03-23 Tato [facility] [place] 21:52:00 Medical Branch POCT GLUCOSE (AUTOMATED) 2020-03-23 Tato Shearer [facility] [place] 17:58:00 Medical Branch POCT GLUCOSE (AUTOMATED) 2020-03-23 Tato Shearer [facility] [place] 13:55:00 Medical Branch PHOSPHORUS 2020-03-23 [facility] [place] 11:28:00 Medical Branch MAGNESIUM 2020-03-23 Dong, [facility] [place] 11:28:00 Medical Branch BASIC METABOLIC PANEL 2020-03-23 [facility] (NA, K, CL, CO2, 11:28:00 Medical Branch GLUCOSE, BUN, CREATININE, CA) CBC WITH DIFF 2020-03-23 [facility] 11:28:00 Medical Branch POCT GLUCOSE (AUTOMATED) 2020-03-23 Tato Shearer [facility] [place] 09:25:00 Medical Branch POCT GLUCOSE (AUTOMATED) 2020-03-23 Tato Shearer [facility] [place] 05:21:00 Medical Branch POCT GLUCOSE (AUTOMATED) 2020-03-23 Tato Shearer [facility] [place] 01:17:00 Medical Branch POCT GLUCOSE (AUTOMATED) 2020-03-22 [facility] [place] 23:04:00 Medical Branch POCT GLUCOSE (AUTOMATED) 2020-03-22 Tato Shearer [facility] [place] 18:59:00 Medical Branch POCT GLUCOSE (AUTOMATED) 2020-03-22 Tato Shearer [facility] [place] 15:35:00 Medical Branch POCT GLUCOSE (AUTOMATED) 2020-03-22 Tato Shearer [facility] [place] 13:30:00 Medical Branch PHOSPHORUS 2020-03-22 [facility] [place] 11:09:00 Medical Branch MAGNESIUM 2020-03-22 [facility] [place] 11:09:00 [facility] BASIC METABOLIC PANEL 2020-03-22 [facility] (NA, K, CL, CO2, 11:09:00 Medical Branch GLUCOSE, BUN, CREATININE, CA) CBC WITH DIFF 2020-03-22 [facility] [place] 09:42:00 Medical Branch POCT GLUCOSE (AUTOMATED) 2020-03-22 [facility] [place] 09:22:00 [facility] POCT GLUCOSE (AUTOMATED) 2020-03-22 Tato She[facility] [place] 04:21:00 Medical [facility] POCT GLUCOSE (AUTOMATED) 2020-03-22 Tato She[facility] [place] 00:24:00 [facility] POCT GLUCOSE (AUTOMATED) 2020-03-21 Tato She[facility] [place] 23:02:00 [facility] POCT GLUCOSE (AUTOMATED) 2020-03-21 Tato She[facility] [place] 18:42:00 [facility] POCT GLUCOSE (AUTOMATED) 2020-03-21 Tato Shearer [facility] [place] 13:38:00 Medical Branch VANCOMYCIN TROUGH 2020-03-21 [facility]:17[facility]00 [facility] PHOSPHORUS 2020-03-21 [facility] 08:35:00 Medical Branch MAGNESIUM 2020-03-21 [facility] 08:35:00 Medical [facility] BASIC METABOLIC PANEL 2020-03-21 [facility] (NA, K, CL, CO2, 08:35:00 Medical Branch GLUCOSE, BUN, CREATININE, CA) CBC WITH DIFF 2020-03-21 [facility] 08:35:00 Medical Branch POCT GLUCOSE (AUTOMATED) 2020-03-21 Tato She[facility] [place] 08:30:00 [facility] POCT GLUCOSE (AUTOMATED) 2020-03-21 Tato Shearer [facility] [place] 05:19:00 [facility] POCT GLUCOSE (AUTOMATED) 2020-03-21 Tato She[facility] [place] 00:49:00 [facility] CBC WITH DIFF 2020-03-20 [facility] 22:51:00 [facility] POCT GLUCOSE (AUTOMATED) 2020-03-20 [facility] [place] 21:08:00 [facility] POCT GLUCOSE (AUTOMATED) 2020-03-20 Tato She[facility] [place] 16:12:00 [facility] POCT GLUCOSE (AUTOMATED) 2020-03-20 Tato Shearer [facility] [place] 12:20:00 Medical Branch PHOSPHORUS 2020-03-20 Dong, [facility] 08:44:00 Medical Branch MAGNESIUM 2020-03-20 Dong, [facility] 08:44:00 Medical Branch BASIC METABOLIC PANEL 2020-03-20 [facility] (NA, K, CL, CO2, 08:44:00 Medical Branch GLUCOSE, BUN, CREATININE, CA) CBC WITH DIFF 2020-03-20 [facility], [facility] 08:44:00 Medical Branch POCT GLUCOSE (AUTOMATED) 2020-03-20 [facility]ato Shearer [facility] [place] 08:39:00 Medical Branch POCT GLUCOSE (AUTOMATED) 2020-03-20 Tato Shearer [facility] 05:13:00 Medical Branch POCT GLUCOSE (AUTOMATED) 2020-03-20 [facility]ato She[facility] [place] 00:38:00 Medical Branch POCT GLUCOSE (AUTOMATED) 2020-03-19 Tato Shearer i[facility]ity [facility] 21:53:00 Medical Branch BLOOD CULTURE SCREEN 2020-03-19 [facility] 18:40:00 Medical Branch POCT GLUCOSE (AUTOMATED) 2020-03-19 Tato Shearer [facility] 16:21:00 Medical Branch POCT GLUCOSE (AUTOMATED) 2020-03-19 Tato Shearer [facility] [place] 12:20:00 Medical [facility] PHOSPHORUS 2020-03-19 [facility], [facility] 09:13:00 Medical Branch MAGNESIUM 2020-03-19 Dong, [facility] 09:13:00 Medical Branch BASIC METABOLIC PANEL 2020-03-19 [facility] (NA, K, CL, CO2, 09:13:00 Medical Branch GLUCOSE, BUN, CREATININE, CA) CBC WITH DIFF 2020-03-19 [facility], [facility] [place] 09:13:00 Medical Branch POCT GLUCOSE (AUTOMATED) 2020-03-19 [facility] 09:03[facility]00 [facility] POCT GLUCOSE (AUTOMATED) 2020-03-19 [facility] 04:35:00 [facility] POCT GLUCOSE (AUTOMATED) 2020-03-19 Tato Shearer [facility] 02:09:00 Medical Branch POCT GLUCOSE (AUTOMATED) 2020-03-18 Tato Shearer [facility] 23:00:00 Medical Branch CBC WITHOUT DIFF 2020-03-18 [facility] 21:56:00 Medical Branch PHOSPHORUS 2020-03-18 [facility] 21:55:00 Medical Branch MAGNESIUM 2020-03-18 [facility] 21:55:00 Medical Branch BASIC METABOLIC PANEL 2020-03-18 [facility] (NA, K, CL, CO2, 21:55:00 Medical Branch GLUCOSE, BUN, CREATININE, CA) TRANSFUSE PACKED RBC 2020-03-18 Caio Najera [facility] 20:31:33 [facility] SURGICAL PATHOLOGY EXAM 2020-03-18 Tato Shearer [facility] 20:16:00 Medical Branch PREPARE PACKED RBC 2020-03-18 Caio Najera [facility] 19:52:03 Medical Branch NERVE BLOCK 2020-03-18 [facility] 18:54:54 Medical Branch BELOW THE KNEE 2020-03-18 Tato Shearer [facility] AMPUTATION 18:26:00 Medical Branch POCT GLUCOSE (AUTOMATED) 2020-03-18 Kandis Hough [facility] 16:49:00 Medical Branch PHOSPHORUS 2020-03-18 [facility] 14:30:00 Medical Branch MAGNESIUM 2020-03-18 [facility] 14:30:00 [facility] BASIC METABOLIC PANEL 2020-03-18 [facility] (NA, K, CL, CO2, 14:30:00 Medical Branch GLUCOSE, BUN, CREATININE, CA) CBC WITH DIFF 2020-03-18 [facility] 14:30:00 Medical Branch POCT GLUCOSE (AUTOMATED) 2020-03-18 [facility] 12:48:00 [facility] POCT GLUCOSE (AUTOMATED) 2020-03-18 [facility] 08:46:00 [facility] POCT GLUCOSE (AUTOMATED) 2020-03-18 [facility] 04:55:00 [facility] HB ABO GROUPING 2020-03-18 Caio Najera [facility] 03:20:00 [facility] POCT GLUCOSE (AUTOMATED) 2020-03-18 [facility] 03:19:00 [facility] POCT GLUCOSE (AUTOMATED) 2020-03-18 [facility] 01:38:00 [facility] POCT GLUCOSE (AUTOMATED) 2020-03-17 [facility] 17:00:00 [facility] POCT GLUCOSE (AUTOMATED) 2020-03-17 [facility] 12:53:00 [facility] ACTIVATED PARTIAL 2020-03-17 [facility] 09[facility]06:00 [facility] BASIC METABOLIC PANEL 2020-03-17 [facility] (NA, K, CL, CO2, 09:02:00 [facility] GLUCOSE, BUN, CREATININE, CA) VANCOMYCIN TROUGH 2020-03-17 [facility] 09:02:00 [facility] CBC WITH DIFF 2020-03-17 [facility] [place] 09:02:00 [facility] POCT GLUCOSE (AUTOMATED) 2020-03-17 [facility] 08:50:00 [facility] POCT GLUCOSE (AUTOMATED) 2020-03-17 [facility] 04:55:00 [facility] ACTIVATED PARTIAL 2020-03-17 [facility]AS [place] 04:02:00 [facility] POCT GLUCOSE (AUTOMATED) 2020-03-17 [facility] 02:09:00 [facility] HB ABO GROUPING 2020-03-16 [facility] [place] 23:00:00 [facility] POCT GLUCOSE (AUTOMATED) 2020-03-16 [facility] 21:50[facility] BASIC METABOLIC PANEL 2020-03-16 [facility] (NA, K, CL, CO2, 21:26:00 Medical Branch GLUCOSE, BUN, CREATININE, CA) ACTIVATED PARTIAL 2020-03-16 Edgardo [facility] THRMPLAS [place] 21:26:00 Medical [facility] US RETROPERITONEAL 2020-03-16 Gianluca [facility] COMPLETE 17:06:34 Medical Branch POCT GLUCOSE (AUTOMATED) 2020-03-16 Gianluca [facility] 16:21:00 [facility] URINALYSIS 2020-03-16 [facility] [place] 15:50:00 [facility] DUPLEX SCAN GRAFT LOWER 2020-03-[facility] BY 14:33:15 [facility] VASCULAR LAB PHOSPHORUS 2020-03-16 [facility] [place] 14:20:00 [facility] MAGNESIUM 2020-03-16 [facility] [place] 14:20:00 [facility] BASIC METABOLIC PANEL 2020-03-16 [facility] (NA, K, CL, CO2, 14:20:00 [facility] GLUCOSE, BUN, CREATININE, CA) PROTHROMBIN TIME / INR 2020-03-16 [facility] 14:20:00 [facility] ACTIVATED PARTIAL 2020-03-16 Edgardo [facility] THRMPLAS [place] 14:20:00 [facility] POCT GLUCOSE (AUTOMATED) 2020-03-16 Gianluca [facility] 12:53:00 [facility] EVIE MULTI LEVEL BY 2020-03-16 [facility] VASCULAR LAB 12:37:21 [facility] EKG-12 LEAD 2020-03-16 [facility] [place] 10:37:51 [facility] WOUND/ASPIRATE OR 2020-03-16 [facility] ABSCESS CULTURE 09:48:00 [facility] WOUND CULTURE 2020-03-16 Gianluca [facility] [place] 09:48:00 [facility] XR CHEST 1 VW 2020-03-16 Gianulca [facility] [place] 08:48:03 [facility] LACTIC ACID WHOLE BLOOD 2020-03-16 Singer [facility] 08:24:[address] FOOT LEFT WO CONTRAST 2020-03-16 Gianluca [facility] 08:02:27 [facility] COVID-19 (ID NOW RAPID 2020-03-16 Singer [facility] TESTING) 07:33:00 Medical Branch LAB ONLY COVID 2020-03-16 Singer [facility] xa INTERPRETATION 07:33:00 Medical [facility] BLOOD CULTURE SCREEN 2020-03-16 Singer [facility] 05:57:00 Medical Branch URIC ACID 2020-03-16 [facility] 05:57:00 [facility] FERRITIN SERUM 2020-03-16 Gianluca [facility] [place] 05:57:00 [facility] IRON 2020-03-16 Gianluca [facility] xa 05:57:00 [facility] TROPONIN I 2020-03-16 Gianluca [facility] xa 05:57:00 [facility] THYROID STIMULATING 2020-03-16 Gianluca [facility] HORMONE 05:57:00 [facility] COMP. METABOLIC PANEL 2020-03-16 [facility] ([id number][facility] 05:57:00 [facility] LIPID PANEL 2020-03-16 [facility] ([id number])(TOTAL 05:57:00 Medical Branch CHOLESTEROL, TRIGLYCERIDES, HDL) SEDIMENTATION RATE 2020-03-16 Gianluca [facility] 05:57:00 [facility] CBC WITH DIFF 2020-03-16 Singer [facility] xa 05:57:00 [facility] GLYCOSYLATED HEMOGLOBIN 2020-03-16 Gianluca [facility] (A1C) 05:57:00 [facility] N-TERMINAL PRO-BNP 2020-03-16 Guffey [facility] 05:57:00 [facility] BLOOD CULTURE WORKUP 2020-03-16 [facility] 05:57:00 [facility] BLOOD CULTURE WORKUP 2020-03-16 Singer [facility] 05:57:00 [facility] GRAM POSITIVE BLOOD 2020-03-16 Singer [facility] [place] PATHOGENS DNA 05:57:00 Medical Branch PROBE-ANAEROBIC LOW-DENSITY LIPOPROTEIN, 2020-03-16 Kandis Hough [facility] DIRECT 05:57:00 [facility] LACTIC ACID WHOLE BLOOD 2020-03-16 Singer [facility] 05:56:00 Medical Branch XR FOOT <3 VW LEFT 2020-03-16 Singer [facility] 05:28:38 Medical Branch CONSENT/REFUSAL FOR 2020-03-16 Doctor Unassigned, No [facility] DIAGNOSIS AND TREATMENT 04:40:16 Name [facility] HOSPITAL ADMISSION 2020-03-15 Doctor Unassigned, No [facility] 05:01:00 Name [facility] POCT GLUCOSE (AUTOMATED) 2020-02-05 [facility] 16:54:00 [facility] POCT GLUCOSE (AUTOMATED) 2020-02-05 [facility] 15:33:00 [facility] POCT GLUCOSE (AUTOMATED) 2020-02-05 [facility] 12:51:00 Medical Branch POCT GLUCOSE (AUTOMATED) 2020-02-05 [facility] 09:10:00 [facility] URIC ACID 2020-02-05 [facility] [place] 08:19:00 [facility] TROPONIN I 2020-02-05 [facility], [facility] [place] 08:19:00 [facility] BASIC METABOLIC PANEL 2020-02-05 [facility] (NA, K, CL, CO2, 08:19:00 Medical Branch GLUCOSE, BUN, CREATININE, CA) CBC WITH DIFF 2020-02-05 [facility] [place] 08:19:00 [facility] N-TERMINAL PRO-BNP 2020-02-05 [facility], [facility] 08:19:00 [facility] URINE CULTURE 2020-02-04 [facility] [place] 23:03:00 [facility] UREA NITROGEN, URINE 2020-02-04 [facility], [facility] RANDOM 23:03:00 [facility] SODIUM, URINE RANDOM 2020-02-04 [facility], [facility] 23:02:00 [facility] PROTEIN CREAT RATIO 2020-02-04 [facility] URINE RANDOM 23:02:00 [facility] POCT GLUCOSE (AUTOMATED) 2020-02-04 [facility] 21:36:00 [facility] ECHO ROUTINE W/DOPPLER 2020-02-04 [facility] COLOR 19:30:09 Medical Branch TROPONIN I 2020-02-04 [facility], [facility] 17:36:00 Medical Branch POCT GLUCOSE (AUTOMATED) 2020-02-04 [facility] 12:47:00 Medical Branch XR CHEST 1 VW 2020-02-04 [facility], [facility] 10:54:05 Medical Branch XR FOOT 3+ VW LEFT 2020-02-04 [facility], [facility] 10:54:05 [facility] ABORH CONFIRMATION 2020-02-04 [facility], [facility] 10:00:00 [facility] POCT GLUCOSE (AUTOMATED) 2020-02-04 [facility] 07:28:00 [facility] HB ABO GROUPING 2020-02-04 [facility], [facility] 06:47:00 Medical Branch LACTATE DEHYDROGENASE 2020-02-04 [facility], [facility] 06:44:00 [facility] URIC ACID 2020-02-04 [facility], [facility] 06:44:00 [facility] VITAMIN B12, LEVEL 2020-02-04 [facility], [facility] 06:44:00 Medical [facility] TROPONIN I 2020-02-04 [facility], [facility] 06:44:00 [facility] BASIC METABOLIC PANEL 2020-02-04 [facility] (NA, K, CL, CO2, 06:44:00 [facility] Branch GLUCOSE, BUN, CREATININE, CA) LIPID PANEL 2020-02-04 Ninfa Castillo [facility] ([id number])(TOTAL 06:44:00 Medical Branch CHOLESTEROL, TRIGLYCERIDES, HDL) IRON PANEL 2020-02-04 [facility], [facility] 06:44:00 Medical Branch CBC WITH DIFF 2020-02-04 [facility], [facility] 06:44:00 [facility] N-TERMINAL PRO-BNP 2020-02-04 [facility], [facility] 06:44:00 Medical Branch VITAMIN D, 25-OH 2020-02-04 Benji [facility] [place] 06:44:00 Medical [facility] PROCALCITONIN 2020-02-04 Benji [facility] [place] 06:44:00 [facility] LACTIC ACID WHOLE BLOOD 2020-02-04 Benji [facility] 06:32:00 Medical Branch COVID-19 (ID NOW RAPID 2020-02-04 [facility] TESTING) 01:18:00 Medical Branch EKG-12 LEAD 2020-02-04 [facility] 01:14:34 Medical Branch EKG-12 LEAD 2020-02-04 [facility] 01:09:[address] ANGIOGRAM CHEST 2020-02-03 [facility] 23:30:[address] ANGIOGRAM 2020-02-03 [facility] ABDOMEN/PELVIS 23:30:25 Medical Branch URINALYSIS 2020-02-03 [facility] 22:47:00 [facility] GLUCOSE 2020-02-03 [facility] [place] 22:29:00 [facility] PROTEIN TOTAL 2020-02-03 [facility] [place] 22:29:00 [facility] URIC ACID 2020-02-03 [facility] [place] 22:29:00 [facility] AMYLASE 2020-02-03 Benji [facility] [place] 22:29:00 [facility] LIPASE 2020-02-03 [facility] [place] 22:29:00 Medical [facility] FERRITIN SERUM 2020-02-03 [facility] [place] 22:29:00 [facility] TROPONIN I 2020-02-03 [facility] 22:29:00 Medical Branch THYROID STIMULATING 2020-02-03 [facility] HORMONE 22:29:00 Medical Branch HEPATIC FUNCTION PANEL 2020-02-03 [facility] ([id number]) (ALB,T.PRO,BILI 22:29:00 Medical Branch T,BU/BC,ALT,AST,ALK PHOS) BASIC METABOLIC PANEL 2020-02-03 [facility] (NA, K, CL, CO2, 22:29:00 [facility] GLUCOSE, BUN, CREATININE, CA) CBC WITH DIFF 2020-02-03 [facility] 22:29:00 Medical Branch PROTHROMBIN TIME / INR 2020-02-03 [facility] 22:29:00 [facility] ACTIVATED PARTIAL 2020-02-[address] [facility] THRMPLAS [place] 22:29:00 [facility] N-TERMINAL PRO-BNP 2020-02-03 [facility] 22:29:00 Medical Branch CONSENT/REFUSAL FOR 2020-02-03 Doctor Unassigned, No [facility] DIAGNOSIS AND TREATMENT 21:40:53 Name [facility] POCT GLUCOSE (AUTOMATED) 2019-11-21 [facility] 16:56:00 [facility] Branch POCT GLUCOSE (AUTOMATED) 2019-11-21 [facility] 16:35:00 [facility] POCT GLUCOSE (AUTOMATED) 2019-11-21 [facility] 15:58:00 [facility] POCT GLUCOSE (AUTOMATED) 2019-11-21 [facility] 12:31:00 Medical Branch VANCOMYCIN TROUGH 2019-11-21 Timur Gerardo [facility] 11:00:00 [facility] POCT GLUCOSE (AUTOMATED) 2019-11-21 [facility] 00:26:00 [facility] POCT GLUCOSE (AUTOMATED) 2019-11-20 [facility] 21:34:00 Medical Branch XR CHEST 1 VW 2019-11-20 Ethan [facility] [place] 21:23:55 [facility] POCT GLUCOSE (AUTOMATED) 2019-11-20 [facility] 15:53:00 [facility] POCT GLUCOSE (AUTOMATED) 2019-11-20 [facility] 12:34:00 [facility] BASIC METABOLIC PANEL 2019-11-20 [facility] (NA, K, CL, CO2, 08:35:00 [facility] GLUCOSE, BUN, CREATININE, CA) CBC WITH DIFFERENTIAL 2019-11-20 [facility] 08:35:00 [facility] POCT GLUCOSE (AUTOMATED) 2019-11-20 [facility] 01:29:00 [facility] NM BONE WHOLE BODY 3 2019-11-19 [facility] PHASE 21:28:28 [facility] POCT GLUCOSE (AUTOMATED) 2019-11-19 [facility] 16:03:00 [facility] VANCOMYCIN TROUGH 2019-11-19 [facility] 12:23:00 [facility] POCT GLUCOSE (AUTOMATED) 2019-11-19 [facility] 12:15:00 [facility] Branch POCT GLUCOSE (AUTOMATED) 2019-11-19 [facility] 01:14:00 [facility] POCT GLUCOSE (AUTOMATED) 2019-11-18 [facility], [facility] 20:42:00 [facility] POCT GLUCOSE (AUTOMATED) 2019-11-18 [facility] 16:24:00 [facility] BILATERAL DUPLEX SCAN OF 2019-11-18 [facility] ARTERY BY VASCULAR LAB 14:48:56 Medical [place] POCT GLUCOSE (AUTOMATED) 2019-11-18 [facility], [facility] 12:26:00 [facility] CT ABDOMEN PELVIS W 2019-11-18 [facility] [place] CONTRAST 01:04:17 [facility] POCT GLUCOSE (AUTOMATED) 2019-11-18 [facility], [facility] 00:47:00 [facility] POCT GLUCOSE (AUTOMATED) 2019-11-17 [facility] 21:03:00 [facility] POCT GLUCOSE (AUTOMATED) 2019-11-17 [facility], [facility] Str[facility]er sity [facility] 16:11:00 [facility] POCT GLUCOSE (AUTOMATED) 2019-11-17 [facility] 12:19:00 [facility] POCT GLUCOSE (AUTOMATED) 2019-11-17 [facility] 04:14:00 Medical [facility] LACTIC ACID WHOLE BLOOD 2019-11-17 [facility] 03:04:00 [facility] POCT GLUCOSE (AUTOMATED) 2019-11-17 [facility] 01:05:00 [facility] CT FOOT LEFT W CONTRAST 2019-11-17 Timur Gerardo [facility] 00:03:16 [facility] XR ANKLE 3+ VW LEFT 2019-11-16 [facility] 22:17:28 [facility] COVID-19 (ID NOW RAPID 2019-11-16 [facility] 22:15:00 [facility] BLOOD CULTURE SCREEN 2019-11-16 [facility] 22:12:00 [facility] BASIC METABOLIC PANEL 2019-11-16 [facility] (NA, K, CL, CO2, 22:12:00 [facility] GLUCOSE, BUN, CREATININE, CA) CBC WITH DIFFERENTIAL 2019-11-16 Marcus [facility] 22:12:00 [facility] GLYCOSYLATED HEMOGLOBIN 2019-11-16 [facility] (A1C) 22:12:00 [facility] LACTIC ACID WHOLE BLOOD 2019-11-16 [facility] 22:11:00 [facility] BLOOD CULTURE SCREEN 2019-11-16 [facility] 21:45:00 [facility] CONSENT/REFUSAL FOR 2019-11-16 Doctor Unassigned, No [facility] DIAGNOSIS AND TREATMENT 21:22:38 Name Medical [place] CT ABDOMEN PELVIS W 2019-09-18 Rosemary Carrillo [facility] CONTRAST 02:32:17 Medical Branch LIPASE 2019-09-18 Rosemary Carrillo [facility] [place] 01:44:00 [facility] COMP. METABOLIC PANEL 2019-09-18 Rosemary Carrillo [facility] ([id number]) 01:44:00 Medical [facility] CBC WITH DIFFERENTIAL 2019-09-18 Rosemary Carrillo [facility] 01:44:00 Medical [facility] CORONAVIRUS COVID-19 2019-09-18 [facility] TESTING 01:44:00 [facility] POCT GLUCOSE (AUTOMATED) 2019-08-15 [facility] [place] [facility] 19:44:[address] ABDOMEN PELVIS W 2019-08-15 [place] [facility] CONTRAST 19:08:31 [facility] XR CHEST 2 VW 2019-08-15 [facility] [place] 18:00:38 Medical [place] XR FOOT 3+ VW LEFT 2019-08-15 [place], [facility] 18:00:38 [facility] URINALYSIS 2019-08-15 [place], [facility] xa 17:45:00 [facility] LIPASE 2019-08-15 [facility] 17:39:00 [facility] TROPONIN I 2019-08-15 [facility] 17:39:00 [facility] HEPATIC FUNCTION PANEL 2019-08-15 [facility] ([id number]) (ALB,T.PRO,BILI 17:39:00 [facility] T,BU/BC,ALT,AST,ALK PHOS) BASIC METABOLIC PANEL 2019-08-15 [facility] (NA, K, CL, CO2, 17:39:00 Medical Branch GLUCOSE, BUN, CREATININE, CA) CBC WITH DIFFERENTIAL 2019-08-15 [facility] 17:39:00 Medical Branch PROTHROMBIN TIME / INR 2019-08-15 [facility] 17:39:00 [facility] EKG-12 LEAD 2019-08-15 [facility] xa 17:30:15 Medical Branch CONSENT/REFUSAL FOR 2019-08-15 Doctor Unassigned, No [facility] DIAGNOSIS AND TREATMENT 16:50:06 Name Medical Branch POCT GLUCOSE (AUTOMATED) 2019-08-09 Timur Gerardo [facility] 16:28:00 Medical Branch POCT GLUCOSE (AUTOMATED) 2019-08-09 Humaira Timur [facility] 13:34:00 Medical Branch MESENTERIC ARTERY DUPLEX 2019-08-09 [facility] 13:12:31 [facility] VITAMIN B12, LEVEL 2019-08-09 [facility] 08:54:00 [facility] BASIC METABOLIC PANEL 2019-08-09 [facility] (NA, K, CL, CO2, 08:54:00 Medical Branch GLUCOSE, BUN, CREATININE, CA) IRON PANEL 2019-08-09 [facility] 08:54:00 [facility] CBC WITH DIFFERENTIAL 2019-08-09 [facility] 08:54:00 [facility] POCT GLUCOSE (AUTOMATED) 2019-08-09 [facility] 00:48:00 [facility] FOLATE 2019-08-08 [facility] 23:30:00 [facility] POCT GLUCOSE (AUTOMATED) 2019-08-08 [facility] 22:24:00 Medical Branch POCT GLUCOSE (AUTOMATED) 2019-08-08 [facility] 16:41:00 [facility] FL UPPER GI SERIES 2019-08-08 Barbara Maria [facility] 16:31:22 Medical Branch POCT GLUCOSE (AUTOMATED) 2019-08-08 [facility] 12:23:00 [facility] FERRITIN SERUM 2019-08-08 [facility] 08:58:00 [facility] BASIC METABOLIC PANEL 2019-08-08 Benji [facility] (NA, K, CL, CO2, 08:58:00 Medical Branch GLUCOSE, BUN, CREATININE, CA) CBC WITH DIFFERENTIAL 2019-08-08 Benji [facility] 08:58:00 [facility] POCT GLUCOSE (AUTOMATED) 2019-08-08 [facility] 01:40:00 [facility] [place] POCT GLUCOSE (AUTOMATED) 2019-08-07 [facility] 20:06:00 Medical Branch TROPONIN I 2019-08-07 Antonia Hough [facility] 15:51:00 Medical Branch POCT GLUCOSE (AUTOMATED) 2019-08-07 [facility] 12:32:00 Medical [facility] MAGNESIUM 2019-08-07 [facility] xa 08:54:00 Medical Branch TROPONIN I 2019-08-07 [facility] 08:54:00 Medical Branch BASIC METABOLIC PANEL 2019-08-07 [facility] (NA, K, CL, CO2, 08:54:00 Medical Branch GLUCOSE, BUN, CREATININE, CA) CBC WITH DIFFERENTIAL 2019-08-07 [facility] 08:54:00 [facility] N-TERMINAL PRO-BNP 2019-08-07 [facility] 08:54:00 [facility] TROPONIN I 2019-08-07 [facility] 03:07:00 Medical Branch US ABDOMEN COMPLETE 2019-08-07 [facility] 01:18:27 Medical Branch POCT GLUCOSE (AUTOMATED) 2019-08-07 [facility] 00:41:00 Medical Branch POCT GLUCOSE (AUTOMATED) 2019-08-06 [facility] 22:34:00 Medical Branch XR CHEST 1 VW 2019-08-06 [facility] 20:30:27 Medical Branch LIPASE 2019-08-06 [facility] 19:52:00 Medical Branch MAGNESIUM 2019-08-06 [facility] 19:52:00 Medical Branch TROPONIN I 2019-08-06 [facility] 19:52:00 Medical Branch THYROID STIMULATING 2019-08-06 [facility] 19:52:00 Medical Branch COMP. METABOLIC PANEL 2019-08-06 Juan JoséOn license of [facility] ([id number]) 19:52:00 [facility] LIPID PANEL 2019-08-06 [facility] ([id number])(TOTAL 19:52:00 Medical Branch CHOLESTEROL, TRIGLYCERIDES, HDL) CBC WITH DIFFERENTIAL 2019-08-06 Juan José [facility] 19:52:00 Medical Branch GLYCOSYLATED HEMOGLOBIN 2019-08-06 [facility] (A1C) 19:52:00 Medical Branch PROTHROMBIN TIME / INR 2019-08-06 Can, [facility] 19:52:00 Medical Branch ACTIVATED PARTIAL 2019-08-06 Juan José [facility] THRMPLAS [place]IS 19:52:00 Medical Branch EKG-12 LEAD 2019-08-06 Juan José [facility] xas 19:51:05 Medical Branch EKG-12 LEAD 2019-08-06 Juan José [facility] xas 19:15:17 Medical Branch ASSIGNMENT OF BENEFITS 2019-08-06 Doctor Unassigned, No [facility] 18:24:58 Name Medical Branch PHYSICIAN ORDERS 2019-08-06 Doctor Unassigned, No [facility] 05:01:00 Name Medical Branch POCT GLUCOSE (AUTOMATED) 2019-07-18 Rosemary Carrillo [facility] 23:33:00 Medical Branch SEDIMENTATION RATE 2019-07-18 Alek [facility] 20:45:00 Medical Branch ACTIVATED PARTIAL 2019-07-18 Alek [facility] 20:45:00 Medical Branch ECHO ROUTINE W/DOPPLER 2019-07-18 Ryan Medeiros [facility] COLOR 17:35:06 Medical Branch TROPONIN I 2019-07-18 Alek [facility] 17:10:00 Medical Branch POCT GLUCOSE (AUTOMATED) 2019-07-18 Rosemary Carrillo [facility] 15:35:00 Medical Branch XR FOOT 3+ VW LEFT 2019-07-18 Alek [facility] 12:20:[address] ABDOMEN PELVIS W 2019-07-18 Alek [facility] CONTRAST 11:56:17 Medical Branch POCT GLUCOSE (AUTOMATED) 2019-07-18 Rosemary Carrillo [facility] 10:18:00 Medical Branch LIPASE 2019-07-18 Alek [facility] 10:12:00 Medical Branch C-REACTIVE PROTEIN 2019-07-18 Alek [facility] 10:12:00 Medical Branch TROPONIN I 2019-07-18 Alek [facility] [place] 10:12:00 Medical Branch TROPONIN I 2019-07-18 [facility] ex 04:03:00 Medical Branch COMP. METABOLIC PANEL 2019-07-18 [facility] ([id number]) 04:03:00 Medical Branch CBC WITH DIFFERENTIAL 2019-07-18 [facility] 04:03:00 Medical Branch PROTHROMBIN TIME / INR 2019-07-18 [facility] 04:03:00 Medical Branch N-TERMINAL PRO-BNP 2019-07-18 [facility] [place] 04:03:00 Medical Branch XR CHEST 1 VW 2019-07-18 [facility] ex 03:56:01 Medical Branch EKG-12 LEAD 2019-07-18 [facility] ex 03:45:46 Medical Branch EKG-12 LEAD 2019-07-18 [facility] ex 03:39:16 Medical Branch EKG-12 LEAD 2019-07-18 [facility] ex 03:37:20 Medical Branch POCT GLUCOSE (AUTOMATED) 2019-06-26 Rober Jeffrycornelio Gaxiola [facility] 23:04:00 Medical Branch POCT GLUCOSE (AUTOMATED) 2019-06-26 Rober Jeffrycornelio G[facility] 17:50:00 Medical [facility] MAGNESIUM 2019-06-26 [facility] 09:44:00 Medical [facility] BASIC METABOLIC PANEL 2019-06-26 Jose [facility] (NA, K, CL, CO2, 09:44:00 Medical Branch GLUCOSE, BUN, CREATININE, CA) CBC WITH DIFFERENTIAL 2019-06-26 [place] [facility] 09:44:00 Medical Branch ACTIVATED PARTIAL 2019-06-26 Pallandrew [facility] THRMPLAS [place] 05:38:00 Medical Branch ACTIVATED PARTIAL 2019-06-26 Palla [facility] THRMPLAS [place] 02:45:00 Medical Branch POCT GLUCOSE (AUTOMATED) 2019-06-26 Rober Jeffrycornelio Gaxiola [facility] 02:42:00 Medical Branch ACTIVATED PARTIAL 2019-06-26 Jose [facility] THRMPLAS [place] 00:09:00 Medical Branch POCT GLUCOSE (AUTOMATED) 2019-06-25 Rober Jeffry [facility] 21:52:00 Medical Branch POCT ACT LOW RANGE 2019-06-25 Rober Jeffry Gaxiola [facility] 20:37:00 Medical Branch POCT ACT LOW RANGE 2019-06-25 Rober, [facility]ry [facility] 19:20:00 Medical Branch POCT GLUCOSE (AUTOMATED) 2019-06-25 Rober Jeffry Loan [facility] [place] 15:41:00 Medical Branch ECHO ROUTINE W/DOPPLER 2019-06-25 [facility] 14:26:53 Medical Branch ACTIVATED PARTIAL 2019-06-25 Jose [facility] 08:59:00 Medical Branch CREATININE, URINE RANDOM 2019-06-25 [facility] 08:56:00 Medical Branch UREA NITROGEN, URINE 2019-06-25 [facility] 08:56:00 [facility] SODIUM, URINE RANDOM 2019-06-25 Jose [facility] 08:56:00 Medical Branch MAGNESIUM 2019-06-25 [facility] 08:56:00 Medical [facility] TROPONIN I 2019-06-25 [facility] 08:56:00 [facility] BASIC METABOLIC PANEL 2019-06-25 [facility] (NA, K, CL, CO2, 08:56:00 Medical Branch GLUCOSE, BUN, CREATININE, CA) GALV/CLC ONLY - URINE 2019-06-25 [facility] DRUG (IMMUNOASSAY) - 08:56:00 Medical [facility] COMPREHENSIVE DRUG SCREEN CBC WITH DIFFERENTIAL 2019-06-25 [facility] 08:56:00 Medical Branch TROPONIN I 2019-06-25 [facility] 02:38:00 Medical Branch ACTIVATED PARTIAL 2019-06-25 [facility] THRLAS [place] 02:38:00 Medical Branch POCT GLUCOSE (AUTOMATED) 2019-06-25 Jeffry Shirley [facility] 02:17:00 Medical Branch URINALYSIS 2019-06-24 Janeth Goodson [facility] 21:55:00 Medical Branch XR CHEST 1 VW 2019-06-24 Janeth Goodson [facility] 21:19:06 [facility] N-TERMINAL PRO-BNP 2019-06-24 Janeth Goodson [facility] 21:08:00 Medical Branch PHOSPHORUS 2019-06-24 Cade Garcia [facility] xas 21:08:00 Medical Branch MAGNESIUM 2019-06-24 Janeth Goodson [facility] 21:08:00 [facility] TROPONIN I 2019-06-24 Janeth Goodson [facility] 21:08:00 [facility] THYROID STIMULATING 2019-06-24 Janeth Goodson [facility] HORMONE 21:08:00 [facility] HEPATIC FUNCTION PANEL 2019-06-24 Janeth Goodson [facility] ([id number]) (ALB,T.PRO,BILI 21:08:00 Medical Branch T,BU/BC,ALT,AST,ALK PHOS) BASIC METABOLIC PANEL 2019-06-24 Janeth Goodson [facility] (NA, K, CL, CO2, 21:08:00 Medical Branch GLUCOSE, BUN, CREATININE, CA) CBC WITH DIFFERENTIAL 2019-06-24 Janeth Goodson [facility] 21:08:00 [facility] GLYCOSYLATED HEMOGLOBIN 2019-06-24 Cade Garcia [facility] (A1C) 21:08:00 [facility] PROTHROMBIN TIME / INR 2019-06-24 Janeth Goodson [facility] 21:08:00 [facility] EKG-12 LEAD 2019-06-24 Janeth Goodson [facility] 21:01:21 [facility] EKG-12 LEAD 2019-06-24 Janeth Goodson [facility] 20:56:30 Medical Branch NOTICE OF PRIVACY 2019-06-24 Doctor Unassigned, No [facility] PRACTICES 20:46:45 Name Medical [place] CONSENT/REFUSAL FOR 2019-06-24 Doctor Unassigned, No [facility] DIAGNOSIS AND TREATMENT 20:46:25 Name Medical [place] US SCROTUM AND CONTENTS 2019-02-06 Antonia Cedeno [facility] 01:39:04 Medical Branch BASIC METABOLIC PANEL 2019-02-05 Antonia Cedeno [facility] (NA, K, CL, CO2, 23:17:00 Medical Branch GLUCOSE, BUN, CREATININE, CA) CBC WITH DIFFERENTIAL 2019-02-05 Antonia Cedeno [facility] 23:17:00 Medical Branch URINALYSIS 2019-02-05 Antonia Cedeno [facility] xas 23:17:00 Medical Branch CONSENT/REFUSAL FOR 2019-02-05 Doctor Unassigned, Lucero [facility] DIAGNOSIS AND TREATMENT 22:21:30 Name Medical Branch POCT GLUCOSE (AUTOMATED) 2019-01-29 [facility] 16:43:00 Medical Branch POCT GLUCOSE (AUTOMATED) 2019-01-29 [facility] 14:46:00 Medical Branch MAGNESIUM 2019-01-29 [facility] xa 09:12:00 Medical Branch BASIC METABOLIC PANEL 2019-01-[address] [facility] (NA, K, CL, CO2, 09:12:00 Medical Branch GLUCOSE, BUN, CREATININE, CA) POCT GLUCOSE (AUTOMATED) 2019-01-29 [facility] 03:03:00 [facility] POCT GLUCOSE (AUTOMATED) 2019-01-29 [facility] 01:36:00 Medical Branch POCT GLUCOSE (AUTOMATED) 2019-01-28 [facility] 23:13:00 Medical Branch CBC WITH DIFFERENTIAL 2019-01-28 Mukesh Phelan [facility] 21:06:00 Medical Branch POCT ACT LOW RANGE 2019-01-28 [facility] 18:40:00 Medical Branch POCT ACT LOW RANGE 2019-01-28 [facility] 17:47:00 Medical Branch POCT ACT LOW RANGE 2019-01-28 [facility] 17:40:00 Medical Branch POCT GLUCOSE (AUTOMATED) 2019-01-28 [facility] 13:14:00 Medical Branch MAGNESIUM 2019-01-28 [facility] xas 09:34:00 Medical Branch BASIC METABOLIC PANEL 2019-01-28 [facility] (NA, K, CL, CO2, 09:34:00 Medical Branch GLUCOSE, BUN, CREATININE, CA) CBC WITH DIFFERENTIAL 2019-01-28 [facility] 09:34:00 Medical Branch ACTIVATED PARTIAL 2019-01-28 [facility] THRMPLAS [place] 04:52:00 Medical Branch POCT GLUCOSE (AUTOMATED) 2019-01-28 Siva Can [facility] 01:52:00 Medical Branch POCT GLUCOSE (AUTOMATED) 2019-01-27 Siva Can [facility] 23:35:00 Medical Branch POCT GLUCOSE (AUTOMATED) 2019-01-27 Juan José [facility] 20:40:00 Medical Branch POCT GLUCOSE (AUTOMATED) 2019-01-27 Siva Can [facility] 17:44:00 Medical Branch ACTIVATED PARTIAL 2019-01-27 [facility] 17:36:00 Medical Branch EKG-12 LEAD 2019-01-27 [facility] 14:21:58 Medical Branch POCT GLUCOSE (AUTOMATED) 2019-01-27 Siva Can [facility] 12:55:00 Medical Branch MAGNESIUM 2019-01-27 [facility] xas 05:14:00 Medical Branch TROPONIN I 2019-01-27 [facility] xa 05:14:00 Medical Branch BASIC METABOLIC PANEL 2019-01-27 [facility] (NA, K, CL, CO2, 05:14:00 Medical Branch GLUCOSE, BUN, CREATININE, CA) CBC WITH DIFFERENTIAL 2019-01-27 [facility] 05:14:00 Medical Branch ACTIVATED PARTIAL 2019-01-27 [facility] 05:14:00 Medical Branch POCT GLUCOSE (AUTOMATED) 2019-01-27 Siva Can [facility] 01:12:00 Medical Branch ACTIVATED PARTIAL 2019-01-26 [facility] 22:32:00 Medical Branch POCT GLUCOSE (AUTOMATED) 2019-01-26 Siva Can [facility] 21:36:00 Medical Branch XR ABDOMEN ACUTE SERIES 2019-01-26 Brian James [facility] 19:40:00 Medical Branch CBC WITH DIFFERENTIAL 2019-01-26 Brian James [facility] 18:49:00 Medical Branch POCT GLUCOSE (AUTOMATED) 2019-01-26 Siva Can [facility] 16:31:00 Medical Branch POCT GLUCOSE (AUTOMATED) 2019-01-26 Juan José Siva [facility] 13:43:00 Medical Branch CBC WITH DIFFERENTIAL 2019-01-26 [facility] 11:31:00 Medical Branch MAGNESIUM 2019-01-26 [facility] xa 11:30:00 Medical Branch BASIC METABOLIC PANEL 2019-01-26 [facility] (NA, K, CL, CO2, 11:30:00 Medical Branch GLUCOSE, BUN, CREATININE, CA) ACTIVATED PARTIAL 2019-01-26 [facility] 11:30:00 Medical Branch POCT GLUCOSE (AUTOMATED) 2019-01-26 Juan José [facility] 01:48:00 Medical Branch ACTIVATED PARTIAL 2019-01-25 [facility] 23:11:00 Medical Branch POCT GLUCOSE (AUTOMATED) 2019-01-25 [facility] 21:53:00 Medical Branch POCT GLUCOSE (AUTOMATED) 2019-01-25 Juan José [facility] 17:18:00 Medical Branch BILATERAL VENOUS DUPLEX 2019-01-25 Brian James [facility] LOWER EXTREMITY BY 16:11:13 [facility] VASCULAR LAB POCT GLUCOSE (AUTOMATED) 2019-01-25 Juan José [facility] 12:34:00 Medical Branch EKG-12 LEAD 2019-01-25 [facility] xas 12:28:41 Medical Branch ACTIVATED PARTIAL 2019-01-25 [facility] 11:40:00 Medical Branch TROPONIN I 2019-01-25 [facility] xas 09:04:00 Medical Branch MAGNESIUM 2019-01-25 [facility] xas 05:36:00 Medical Branch TROPONIN I 2019-01-25 [facility] xas 05:36:00 Medical Branch BASIC METABOLIC PANEL 2019-01-25 [facility] (NA, K, CL, CO2, 05:36:00 Medical Branch GLUCOSE, BUN, CREATININE, CA) CBC WITH DIFFERENTIAL 2019-01-25 [facility] 05:36:00 Medical Branch EKG-12 LEAD 2019-01-25 Juan José [facility] xas 03:57:13 Medical Branch EKG-12 LEAD 2019-01-25 [facility] xas 03:52:19 Medical Branch POCT GLUCOSE (AUTOMATED) 2019-01-24 [facility] 23:31:[address] ABDOMEN PELVIS W 2019-01-24 Siva Can [facility] [place] CONTRAST 22:55:10 Medical Branch XR CHEST 1 VW 2019-01-24 Juan José [facility] xas 22:06:35 Medical Branch LIPASE 2019-01-24 Juan José [facility] xas 21:50:00 Medical Branch MAGNESIUM 2019-01-24 Alf [facility] xa 21:50:00 Medical Branch TROPONIN I 2019-01-24 [facility] 21:50:00 [facility] HEPATIC FUNCTION PANEL 2019-01-24 [id number] (ALB,T.PRO,BILI 21:50:00 Medical Branch T,BU/BC,ALT,AST,ALK PHOS) BASIC METABOLIC PANEL 2019-01-24 [facility]On license [facility] (NA, K, CL, CO2, 21:50:00 Medical Branch GLUCOSE, BUN, CREATININE, CA) CBC WITH DIFFERENTIAL 2019-01-24 [facility] 21:50:00 [facility] PROTHROMBIN TIME / INR 2019-01-24 [facility] 21:50:00 Medical Branch ACTIVATED PARTIAL 2019-01-24 Juan JoséOn license of [facility] THRMPLAS [place] 21:50:00 [facility] EKG-12 LEAD 2019[facility]01-24 [facility] 21:05:00 Medical [facility] NOTICE OF PRIVACY 2019-01-24 Doctor Unassigned, No [facility] PRACTICES 20:21:09 Name Medical Branch XR CHEST 1 VW 2019-01-19 Brian James [facility] 13:12:47 Medical Branch MAGNESIUM 2019-01-19 [facility] 11:12:00 Medical Branch BASIC METABOLIC PANEL 2019-01-19 Alf George [facility] (NA, K, CL, CO2, 11:12:00 Medical Branch GLUCOSE, BUN, CREATININE, CA) POCT GLUCOSE (AUTOMATED) 2019-01-19 Dennis Finley [facility] 08:49:[address] [facility] POCT GLUCOSE (AUTOMATED) 2019-01-19 [facility] 04:16:[address] [facility] POCT ACT LOW RANGE 2019-01-19 Malia [facility] 02:10:[address] [facility] POCT GLUCOSE (AUTOMATED) 2019-01-18 [facility] POCT GLUCOSE (AUTOMATED) 2019-01-18 [facility] 15:58:00 Medical Branch POCT GLUCOSE (AUTOMATED) 2019-01-18 [facility] 13:16:00 Medical Branch MAGNESIUM 2019-01-[address] [facility] 08:49:00 Medical Branch TROPONIN I 2019-01-18 [facility] 08:49:00 Medical Branch HEPATIC FUNCTION PANEL 2019-01-18 Brian James [facility] ([id number]) (ALB,T.PRO,BILI 08:49:00 Medical Branch T,BU/BC,ALT,AST,ALK PHOS) PROTHROMBIN TIME / INR 2019-01-18 Alf George [facility] 08:49:00 Medical Branch POCT [facility]COSE (AUTOMATED) [facility] 08[facility]23:00 [facility] POCT GLUCOSE (AUTOMATED) 2019-01-18 [facility] 05:04:00 Medical Branch POCT GLUCOSE (AUTOMATED) 2019-01-18 [facility] 00:48:00 Medical Branch TROPONIN I 2019-01-17 [facility] 21:12:00 Medical Branch POCT GLUCOSE (AUTOMATED) 2019-01-17 [facility] 20:56:00 Medical Branch POCT GLUCOSE (AUTOMATED) 2019-01-17 [facility] 16:32:00 Medical Branch TROPONIN I 2019-01-17 [facility] 15:56:00 Medical Branch POCT GLUCOSE (AUTOMATED) 2019-01-17 [facility] 12:21:00 [facility] POCT GLUCOSE (AUTOMATED) 2019-01-17 [facility] 09:35:00 [facility] TROPONIN I 2019-01-17 Benji [facility] 08:48:00 Medical [place] XR CHEST 1 VW 2019-01-17 Shekhar Allen [facility] 05:21:55 Medical Branch TROPONIN I 2019-01-17 Shekhar Allen [facility] 05:11:00 [facility] BASIC METABOLIC PANEL 2019-01-17 Shekhar Allen [facility] (NA, K, CL, CO2, 05:11:00 Medical Branch GLUCOSE, BUN, CREATININE, CA) CBC WITH DIFFERENTIAL 2019-01-17 Shekhar Allen [facility] 05:11:00 [facility] GLYCOSYLATED HEMOGLOBIN 2019-01-17 Benji [facility] (A1C) 05:11:00 [facility] EKG-12 LEAD 2019-01-17 Shekhar Allen [facility] 05:06:38 [facility] EKG-12 LEAD 2019-01-17 Shekhar Allen [facility] 04:55:06 Medical Branch NOTICE OF PRIVACY 2019-01-17 Doctor Unassigned, No [facility] PRACTICES 04:54:43 Name [facility] CONSENT/REFUSAL FOR 2019-01-17 Doctor Unassigned, No [facility] DIAGNOSIS AND TREATMENT 04:50:58 Name Medical [place] HOSPITAL ADMISSION 2019-01-16 Doctor Unassigned, No [facility] 05:01:00 Name [facility] Computed tomography 2017-10-[address] [facility] angiography of brain 00:00:[facility] angiography of chest 2017-10-23 [facility] 00:[facility]00 Patients [facility] Computed tomography of 2017-10-[address] [facility] - brain without radiopaque 00:00:00 [facility] Computed tomography of 2017-04-04 J[address]ELYN MONTES DE O[facility] - brain without radiopaque 00:00:00 [facility] Computed tomography of 2017-04-04 [address]AC[address]ELYN MONTES DE OCA [facility] - cervical spine without 00:00:00 Patients [facility] US abdomen complete 2017-03-[address] 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 Doctor Unassigned, No [facility] 06:01:00 Name Medical Branch Encounters Start End Encounter Admission Attending Care Care Encounter Source Date/Time Date/Time Type Type Clinicians Facility Department ID 2021-06-17 Outpatient [id number] ENCKY MALDONADO ENCKY 10:24:03 [id number] 2021-06-17 Outpatient 3 [id number] ENCKY REF ENCKY 10:22:04 [id number] 2021-03-22 Emergency [facility] [id number] Univers 15:25:20 ity of [facility] 2021-03-22 Emergency [facility] [id number] Univers 10:56:41 ity of [facility] 2021-03-21 Emergency [facility] [id number] Univers 18:15:08 ity of [facility] 2021-03-21 Emergency [facility] [id number] Univers 17:18:22 ity of [facility] 2021-03-21 Emergency [facility] [id number] Univers 12:58:19 ity of [facility] 2021-03-21 Emergency [facility] [id number] Univers 04:06:22 ity of [facility] 2021-03-21 Emergency [facility] [id number] Univers 00:12:27 ity of [facility] 2021-03-20 Emergency [facility] [id number] Univers 15:57:30 ity of [facility] 2021-03-20 Emergency [facility] [id number] Univers 00:55:44 ity of [facility] 2021-03-19 Emergency [facility] [id number] Univers 17:28:47 ity of [facility] 2021-03-19 Emergency [facility] [id number] Univers 03:16:03 ity of [facility] 2021-03-18 Emergency [facility] [id number] Univers 13:56:50 ity of [facility] 2020-08-23 Inpatient HCACL FERNANDO [facility] 17:41:00 [id number] Jonn Mejia [facility] 2020-04-04 Inpatient Marko, HCAMN HCAMN [facility] 14:40:[address] [facility] 2019-10-15 Inpatient RADHA Shah, HCAPM ENDO [facility] 15:30:00 Finn 07002 [facility] 2021-02-15 2021-02-15 [facility] [id number] -[id number] Univers 15:00:00 15:00:00 ALECIA [id number] y [facility] 2021-02-15 2021-02-15 Outpatient [facility] [id number] Univers 15:00:00 15:00:00 ALECIA [facility] 2021-01-11 2021-01-11 Outpatient R [facility] [id number] Univers 14:30:00 14:30:00 [id number] [facility] 2021-01-11 2021-01-11 Out[facility] [id number] Univers 10:45:00 10:45:00 GINA baugh o f [facility] 2021-01-05 2021-01-05 Transition Latrice Aleman 1.2.840.114 [id number] Univers 00:00:00 00:00:00 of Care Rico Vazquez [id number] ity of [place] 4.2.7.2.686 [facility] [phone] [facility] 403 Branch 2021-01-01 2021-01-04 [facility] Siva Can [facility] 1.2.840.1 14 [id number] Univers 14:18:00 18:10:00 Encounter Timur Gerardo [id number] ity of [place] 4.2.7.2.686 [facility] [phone] [facility] 081 Branch 2021-01-01 2021-01-01 Orders Doctor GARCIA 1.2.840.114 [id number] Univers 00:00:00 00:00:00 Only Unassigned, CAR[place]INA 350.1.13.10 ity of [place] [facility] 4.2.7.2.686 Juan J as [id number] [facility] 009 Branch 2020-12-17 2020-12-17 Transition Latrice Harding 1.2.840.114 [id number] Univers 00:00:00 00:00:00 of Jennifer Vazquez 350.1.13.10 it y of [place] [id number] [facility] 403 [address] 2020-12-14 2020-12-16 Emergency Antonia Cedeno S [facility] 1.2.840.1 14 [id number] Univers 17:50:00 17:46:00 Ana Maria Cardenas 350.1.13.10 ity of [place] 4.2.7.2.686 [facility] [id number] [facility] 081 Branch 2020-11-16 2020-11-16 Orders Doctor TATO 1.2.840.114 [id number] Univers 00:00:00 00:00:00 Only Unassigned, [place] 350.1.13.10 ity of [place] [facility] 4.2.7.2.686 Juan J as [id number] [facility] 009 Branch 2020-10-30 2020-11-05 Inpatient EM [facility] [id number] 16:50:00 13:52:00 Fede 96029 [facility] 2020-10-31 2020-10-31 Outpatient Patjakyar, HCACL LABO [id number] [facility] 08:22:00 08:22:00 Fede 40274 [facility] 2020-10-28 2020-10-28 Hospital Radiology [facility] 1.2.840.114 [id number] Univers 08:30:17 23:59:00 Encounter [place] 350.1.13.10 ity of [place] 4.2.7.2.[address] [facility] s [place] [phone] [facility] 807 Branch 2020-10-28 2020-10-28 [facility] Radiology [facility] 1.2.840.114 [id number] 08:30:17 23:59:00 Encounter [place] 350.1.13.10 [place] 4.2.7.2.686 [place] [id number] [id number] 2020-10-28 2020-10-28 Outpatient R RADIOLOGY [facility] [id number] Univers 09:00:00 09:00:00 [id number] [facility] 2020-10-28 2020-10-28 Outpatient R RADIOLOGY [facility] [id number] Univers 00:00:00 00:00:00 [facility] 2020-10-12 2020-10-12 Office [facility] 1.2.840.114 [id number] Univers 14:02:10 14:50:48 Visit Perla Zamora 350.1.13.10 i ata [facility] [place].2.7.[place] [phone] Nd dic[address] 2020-10-12 2020-10-12 Outpatient R [facility] [id number]-20 Univers 14:00:00 14:00:00 [facility] [id number] [facility] 2020-10-12 2020-10-12 Outpatient R [facility] [id number] Univers 14:00:00 14:00:00 [facility] 2020-10-06 2020-10-06 Office [facility] 1.2.840.114 [id number] Univers 10:43:51 11:59:29 Visit Gina Zamora 350.1.13.10 [place] [phone] Nd dical [address] 2020-10-06 2020-10-06 Office [facility] 1.2.840.114 [id number] 10:43:51 11:59:29 Visit Gina Zamora 350.1.13.10 [place] 4.2.7.2.686 Professio [id number] [address] 2020-10-06 2020-10-06 Out[facility] [id number] L-20 Univers 10:30:00 10:30:00 GINA [id number] ity o f [facility] 2020-10-06 2020-10-06 Out[facility] [id number] Univers 10:30:00 10:30:00 GINA workman [facility] 2020-10-06 2020-10-06 Orders Doctor TATO 1.2.840.114 [id number] Univers 00:00:00 00:00:00 Only Unassigned, [place] 350.1.13.10 ity of [place] [facility] 4.2.7.2.686 Juan J as [id number] [facility] 009 Branch 2020-10-05 2020-10-05 Outpatient R [facility] [id number] L-20 Univers 14:00:00 14:00:00 PERLA [id number] ity of [facility] 2020-09-28 2020-09-28 [facility] 1.2.840.114 [id number] Univers 17:28:00 21:08:00 Óscar aZmora 350.1.13.10 ity of [place].2.7.2.[place] [id number] [facility] 084 Branch 2020-09-28 2020-09-28 Transition Latrice French 1.2.840.114 [id number] Univers 00:00:00 00:00:00 of Care Gilda George 350.1.13.10 it y of [place] [id number] [facility] 403 [address] 2020-09-23 2020-09-26 [facility] Siva Can [facility] 1.2.840.1 14 [id number] Univers 13:50:00 18:28:00 Encounter Blake Fernandez [id number] ity of [place] 4.2.[place].2.[place] [phone] [facility] 081 [address] 2020-09-22 2020-09-22 Outpatient [facility] [id number]-20 Univers 09:45:00 09:45:00 GINA [id number] amauri o f [facility] 2020-09-22 2020-09-22 Outpatient [facility] [id number] Univers 09:45:00 09:45:00 GINA workman hakeem [facility] 2020-09-10 2020-09-10 Outpatient R [facility] [id number] L-20 Univers 16:15:00 16:15:00 [facility] [id number] [facility] 2020-09-10 2020-09-10 Outpatient R [facility] [id number] Univers 16:15:00 16:15:00 [facility] 2020-09-09 2020-09-09 Transition Latrice Aleman 1.2.840.114 [id number] Univers 00:00:00 00:00:00 of Care Rico Vazquez 350.1.13.10 ity of [place] [phone] [address] 2020-09-08 2020-09-08 Outpatient [facility] [id number] L-20 Univers 08:30:00 08:30:00 GINA [id number] amauri o [facility] 2020-09-08 2020-09-08 Outpatient [facility] [id number] Univers 08:30:00 08:30:00 GINA workman [facility] 2020-09-02 2020-09-07 [facility] GuyTato [facility] 1.2.840.114 [id number] Univers 16:46:00 18:45:00 Encounter [facility] 350. 1.13.10 ity of [place] 4.2.7.2.686 Kaylyn Longo Mejia [phone] [address] ([facility]) 2020-08-26 2020-08-26 Office Jani [facility] 1.2.840.114 [id number] Univers 10:44:06 11:14:06 Visit [facility] 350.1.13.10 it y of [place]2.7.2.[place] [phone] [place] [address] Branch Office Building 2020-08-26 2020-08-26 Outpatient R ASHLEY GUNTER [facility] [id number] L-20 Univers 10:30:00 10:30:00 [id number] [facility] 2020-08-26 2020-08-26 Outpatient ASHLEY POLK [facility] [id number] Univers 10:30:00 10:30:00 [facility] 2020-08-25 2020-08-25 Outpatient [facility] [id number]-20 Univers 10:00:00 10:00:00 GINA [id number] franciscovashti o [facility] 2020-08-25 2020-08-25 Outpatient [facility] [id number] Univers 10:00:00 10:00:00 GINA singhvashti workman [facility] 2020-08-24 2020-08-24 [facility] [id number]-20 Univers 09:00:00 09:00:00 DEIDRE [id number] [facility] 2020-08-24 2020-08-24 Outpatient [facility] [id number] Univers 09:00:00 09:00:00 DEIDRE [facility] 2020-08-21 2020-08-21 Office [facility] 1.2.840.114 [id number] Univers 08:43:52 09:13:46 Visit Gina Zamora 350.1.13.10 [facility] 4.2.7.2.686 Noe Aliciaio [phone] Nd dic[address] 2020-08-21 2020-08-21 Outpatient [facility] [id number]-20 Univers 08:30:00 08:30:00 GINA [id number] amauri ji [facility] 2020-08-21 2020-08-21 Outpatient [facility] [id number] Univers 08:30:00 08:30:00 GINA baugh ji [facility] 2020-08-19 2020-08-19 Outpatient PEGGY THORPE [id number] [facility] 07:13:00 07:13:00 DOES_NOT [id number] [facility] 2020-08-10 2020-08-14 Inpatient EM AMELIA Montanez INTE.02 [id number] [facility] 09:09:00 18:56:00 Johnie 95563 [facility] 2020-08-11 2020-08-11 Outpatient R [facility] [id number] L-20 Univers 09:15:00 09:15:00 [facility] [id number] [facility] 2020-08-11 2020-08-11 Outpatient R [facility] [id number] Univers 09:15:00 09:15:00 [facility] 2020-08-07 2020-08-07 Outpatient R [facility] [id number] L-20 Univers 10:00:00 10:00:00 GINA [id number] [facility] 2020-08-07 2020-08-07 Outpatient R [facility] [id number] Univers 10:00:00 10:00:00 GINATri [facility] 2020-07-27 2020-08-06 [facility] Rosa M Galvan 1.2.840.1 14 [id number] Univers 12:13:00 17:15:00 Encounter Minnie Cardona 350.1.13.10 ity [facility] 4.2.7.2.686 Drew Martinez [id number] [facility] 090 Branch 2020-07-24 2020-07-24 Outpatient R [facility] [id number] L-20 Univers 13:00:00 13:00:00 GINA [id number] [facility] 2020-07-24 2020-07-24 Outpatient R [facility] [id number] Univers 13:00:00 13:00:00 [facility] 2020-07-21 2020-07-21 Transition Latrice Aleman 1.2.840.114 [id number] Univers 00:00:00 00:00:00 of Care Rcio Vazquez 350.1.13.[address] [facility] 4.2.7.2.686 [place] [phone] [facility] 403 [address] 2020-07-10 2020-07-20 Hospital Janeth Goodson 1.2.84 0.114 [id number] Univers 19:24:00 21:51:00 Encounter Oc Bryson 350.1.13.10 ity Janeth Goodson [facility] 4.2.7.2.686 [place] Minnie Cardona [phone] Medical Marroquin, Lisa 095 B martych 2020-07-17 2020-07-17 Outpatient Tim [facility] [id number] -[id number] Univers 10:00:00 10:00:00 TATO [id number] vashti [facility] 2020-07-17 2020-07-17 Outpatient Tim [facility] [id number] Univers 10:00:00 10:00:00 TATO [facility] 2020-07-10 2020-07-10 Outpatient [facility] [id number]-20 Univers 08:45:00 08:45:00 GINA [id number] amauri o [facility] 2020-07-10 2020-07-10 Outpatient [facility] [id number] Univers 08:45:00 08:45:00 GINA workman [facility] 2020-06-15 2020-06-15 Telephone [facility] 1.2.705.482 [id number] Univers 00:00:00 00:00:00 Tato Zamora 350.1.13.10 i ty of [place].2.7.2.686 [place] [facility] [phone] Nd dical nal [address] [facility] 2020-06-11 2020-06-11 Office [facility] 1.2.840.114 [id number] Univers 13:43:55 13:58:55 Visit Tato Reyes 350.1.13.10 it y of [place] 4.2.7.2.686 [place] - [phone] Med ical [facility] [address] 2020-06-11 2020-06-11 Outpatient Tim [facility] [id number] -[id number] Univers 13:30:00 13:30:00 TATO Carranza121 ity [facility] 2020-06-11 2020-06-11 Outpatient R JANKI, [facility] [id number] Univers 13:30:00 13:30:00 TATO ity [facility] 2020-06-03 2020-06-03 Transition Latrice Aleman 1.2.840.114 [id number] Univers 00:00:00 00:00:00 of Care Rico Andrew Vazquez 350.1.13.10 ity of [place] 4.2.7.2.686 [place] [id number] [facility] 403 [address] 2020-05-29 2020-06-02 [facility] GalvanRosa M [facility] 1.2.840.1 14 [id number] Univers 09:12:00 16:02:00 Encounter Timur Gerardo 350.1.13.10 ity of [place] 4.2.7.2.686 [facility] [id number] [facility] 081 [address] 2020-05-29 2020-05-29 Outpatient Tim SHEARER [facility] [id number] Univers 10:15:00 10:15:00 TATO [id number] ity [facility] 2020-05-29 2020-05-29 Outpatient Tim [facility] [id number] Univers 10:15:00 10:15:00 TATO vashti [facility] 2020-05-28 2020-05-28 Outpatient Tim [facility] [id number] -[id number] Univers 13:45:00 13:45:00 TATO [id number] ity [facility] 2020-04-23 2020-04-23 [facility] 1.2.840.114 [id number] Univers 13:48:18 14:03:18 Visit [facility] 350.1.13.10 it y of [place] 4.2.7.2.[place] - [phone] [facility] [address] [place] 2020-04-23 2020-04-23 Outpatient Tim [facility] [id number] -[id number] Univers 13:30:00 13:30:00 TATO [id number] [facility] 2020-04-23 2020-04-23 Outpatient Tim SHEARER [facility] [id number] Univers 13:30:00 13:30:00 TATO ity of [facility] 2020-04-23 2020-04-23 Orders Doctor TATO 1.2.840.114 [id number] Univers 00:00:00 00:00:00 Only Unassigned, [place] 350.1.13.10 ity of [place] [facility] 4.2.7.2.686 Juan J [id number] [facility] 009 [address] 2020-04-09 2020-04-09 Office [facility] 1.2.840.114 [id number] Univers 13:58:45 14:13:45 Visit [facility] 350.1.13.10 it y of [place] 4.2.7.2.686 [facility] [phone] Med ical [facility] [address] [place] 2020-04-09 2020-04-09 Outpatient R JANKI [facility] [id number] -[id number] Univers 14:00:00 14:00:00 TATO [id number] ity of [facility] 2020-04-09 2020-04-09 Outpatient Tim SHEARER [facility] [id number] Univers 14:00:00 14:00:00 TATO ity [facility] 2020-03-27 2020-03-27 Transition Latrice Aleman 1.2.840.114 [id number] Univers 00:00:00 00:00:00 of Care Rico Andrew Vazquez 350.1.13.10 ity of [place] 4.2.7.2.686 [facility] [phone] [facility] 403 [address] 2020-03-15 2020-03-26 Hospital Rosa M Galvan 1.2.840.1 14 [id number] Univers 23:48:00 18:02:00 Encounter Kandis Hough 350.1.13.10 ity of Tato Shearer [facility] 4.2.7.2.[address] [place] [address] [id number] [facility] 098 [address] 2020-03-18 2020-03-18 Anesthesia Caio Najera 1. 2.840.114 [id number] Univers 13:52:00 16:42:00 Stephanie Franks 350.1.13.10 ity of Hospital 4.2.7.2.686 [place] J as [phone] [facility] 103 [address] 2020-02-06 2020-02-06 Transition Latrice Aleman 1.2.840.114 [id number] Univers 00:00:00 00:00:00 of Care Rico Vazquez 350.1.13.10 ity of [place] 4.2.7.2.[place] [id number] [facility] 403 [address] 2020-02-03 2020-02-05 [facility] Óscar Hermosillo [facility] 1.2.8 40.114 [id number] Univers 16:55:00 20:40:00 Encounter Martha Rowe 350.1.13.10 ity of [place] 4.2.7.2.686 [place] [phone] [place] [id number] [place] 2020-01-17 2020-01-17 Outpatient [facility] [id number] -[id number] Univers 13:30:00 13:30:00 [id number] ity of [facility] 2020-01-17 2020-01-17 Outpatient R ANNA, [facility] [id number] Univers 13:30:00 13:30:00 SENDIL ity of [facility] 2019-12-02 2019-12-02 Outpatient [facility] [id number] Univers 15:00:00 15:00:00 [id number] ity of [facility] 2019-12-02 2019-12-02 Outpatient R [facility] [id number] Univers 15:00:00 15:00:00 ity of [facility] 2019-11-24 2019-11-24 Outpatient R HUMAIRA, [facility] [id number] Univers 09:10:00 09:10:00 TIMUR ity of [facility] 2019-11-16 2019-11-21 [facility] Marcus Lorimor [facility] 1.2.840 .114 [id number] Univers 16:35:23 14:12:00 Encounter Heather Hermosillo 350.1.13.1 0 ity of [place] 4.2.7.2.686 [place] [phone] [place] 652061 [place] 2019-09-17 2019-09-18 Emergency [facility] 1.2.238.245 [id number] Univers 20:30:04 00:41:00 Rosemary Zamora 350.1.13.10 ity of [place] 4.2.7.2.686 [place] [id number] [address] 2019-09-17 2019-09-18 Emergency X [facility] ERT [id number] Univers 20:30:04 00:41:00 ROSEMARY ity [facility] 2019-09-05 2019-09-05 Outpatient [facility] [id number] Univers 14:00:00 14:00:00 SENDIL [id number] ity [facility] 2019-09-05 2019-09-05 Outpatient [facility] [id number] Univers 14:00:00 14:00:00 [facility]IL [facility] 2019-09-05 2019-09-05 [facility] 1.2.840.114 [id number] Univers 08:17:17 08:47:17 ne Visit Sendil Hannah Zamora 350.1.13.10 ity of [place] 4.2.7.2.686 [place] [phone] Nd dicks nal [address] [place] [address] 2019-09-05 2019-09-05 [facility]phone [facility] .[id number] [id number] Univers 00:00:00 00:00:00 Sendil Hannah Zamora 350.1.13.10 ity of [place] 4.2.7.2.[place] [phone] Nd dicks nal [address] [place] [address] 2019-09-03 2019-09-03 Outpatient [facility] [id number] Univers 10:30:00 10:30:00 SENDIL [id number] ity [facility] 2019-09-03 2019-09-03 Outpatient R [facility] [id number] Univers 10:30:00 10:30:00 [facility]IL [facility] 2019-08-20 2019-08-20 Telephone [facility] 1..810.914 [id number] Univers 00:00:00 00:00:00 Nika Simmons VALERIA 350.1.13.10 ity of [place]2.[place].2.[place] [facility] [id number] Nd dical [address] 2019-08-19 2019-08-19 Refill Nancy Lee 1.2.840.114 [id number] Univers 00:00:00 00:00:00 Lola Harrelly 350.1.13.10 it y of Hospital 4.2.7.2.686 Juan J as [id number] [facility] [address] 2019-08-16 2019-08-16 Refill Nancy Lee 1.2.840.114 [id number] Univers 00:00:00 00:00:00 Lola Harrelly 350.1.13.10 it y of Hospital 4.2.7.2.686 [place] J as [id number] [facility] 0[address] [place] 2019-08-15 2019-08-15 Emergency [facility] 1.2.840.114 [id number] Univers 11:58:21 15:28:00 Pietro Zamora 350.1.13.10 i ty of [place] 4.2.7.2.686 [place] [id number] [facility] 084 [place] 2019-08-15 2019-08-15 Emergency X [facility] ERT [id number] Univers 11:58:21 15:28:00 SHINTA ity of [facility] 2019-08-15 2019-08-15 Case TATO Castillo 1.2.840.114 [id number] Univers 00:00:00 00:00:00 Management Ninfa EVANS 350.1.13.10 ity of [facility] 4.2.7.2.686 Juan J as [id number] [facility] [address]8 [address] 2019-08-15 2019-08-15 Telephone Anna [facility] 1.2.118.223 [id number] Univers 00:00:00 00:00:00 Ninfa Zamora 350.1.13.10 ity of [place] 4[place]2.[place].2.[place] [phone] Nd dical nal 0[address] Building 2019-08-12 2019-08-12 Transition Latrice Ramirez 1.2.840.114 [id number] Univers 00:00:00 00:00:00 of Care Joan Zelayay 350.1.13.10 ity of [place] 4.2.7.2.686 [place] [id number] [facility] [address] 2019-08-06 2019-08-09 Emergency Siva Can [facility] 1.2.840. 114 [id number] Univers 14:06:47 15:19:00 Timur Gerardo 350.1.13.10 ity of [place] 4.2.7.2.686 [place] [phone] [facility] [address] 2019-08-06 2019-08-09 Outpatient X HUMAIRA [facility] [id number] Univers 14:06:47 15:19:00 TIMUR singhy [facility] 2019-08-06 2019-08-06 Outpatient R TRAVIS [facility] [id number] Univers 13:30:00 13:30:00 ARIANJULIANN amauri o [facility] 2019-08-06 2019-08-06 Outpatient R [facility] [id number] Univers 11:00:00 11:00:00 [id number] ity of [facility] 2019-08-06 2019-08-06 Outpatient R TRAVIS, [facility] [id number] Univers 11:00:00 11:00:00 RICHMOND baugh o f [facility] 2019-08-06 2019-08-06 Outpatient R TRAVIS, [facility] [id number] Univers 11:00:00 11:00:00 RICHMOND baugh o [facility] 2019-08-06 2019-08-06 Orders Doctor TATO 1.2.840.114 [id number] Univers 00:00:00 00:00:00 Only Unassigned, CAROLINA [id number] ity of [place] [facility] [id number] Juan J as [phone] [facility] [address] 2019-07-19 2019-07-19 Transition Latrice French 1.2.840.114 [id number] Univers 00:00:00 00:00:00 of Care Gilda Vazquez [id number] it y [id number] [id number] [facility] [address] [place] 2019-07-17 2019-07-18 Emergency Rosemary Carrillo Nancy 1.2.840 .114 [id number] Univers 21:36:10 21:05:00 Kendra Vaca [place] [id number] 0 ity of [facility] [id number] Juan J as [id number] [facility] [address] 2019-07-17 2019-07-18 Outpatient X KENDRA VACA [facility] [id number] Univers 21:36:10 21:05:00 KENDRA VACA ity [facility] 2019-07-03 2019-07-03 Transition Latrice French 1.2.840.114 [id number] Univers 00:00:00 00:00:00 of Care Gilda Vazquez 350.1.13.10 it [phone] [address] 2019-07-01 2019-07-01 Transition Latrice French 1.2.840.114 [id number] Univers 00:00:00 00:00:00 of Care Gilda Vazquez 350.1.13.10 [id number] [address] 2019-06-27 2019-06-27 Transition Latrice French 1.2.840.114 [id number] Univers 00:00:00 00:00:00 of Care Gilda Vazquez 350.1.13.10 it [place] [phone] [address] 2019-06-24 2019-06-26 Inpatient X ROBER [facility] [id number] Univers 14:51:01 18:37:00 JEFFRY baugh [facility] 2019-06-24 2019-06-26 [facility] Janeth Goodson 1.2.84 0.114 [id number] Univers 14:51:01 18:37:00 Encounter Jeffry Shirley [place] 350.1.1 3.10 ity of [facility] 4.2.7.2.686 Juan J as [phone] [facility] [address] 2019-02-06 2019-02-06 Telephone TATO Bhatt 1.2.840.114 [id number] Univers 00:00:00 00:00:00 Cortney [place] 350.1.13.10 i ty of [facility] 4.2.7.2.686 [place] J as [phone] [facility] [address] 2019-02-05 2019-02-05 Emergency [facility] 1.2.617.400 [id number] Univers 17:30:29 21:52:00 Antonia S Sera 350.1.13.10 i ty of [place] [id number] [facility] [address] 2019-01-30 2019-01-30 Transition Latrice Quevedo 1.2.840.114 [id number] Univers 00:00:00 00:00:00 of Care Rhonda Vazquez 350.1.13.10 it [place] of [place] [phone] [facility] [address] 2019-01-24 2019-01-29 [facility] Siva Can 1.2.840.1 14 [id number] Univers 16:01:37 14:55:00 Encounter Dennis Finley 350.1.13.10 ity of [facility] 4.2.7.2.686 [place] [phone] [facility] [address] 2019-01-22 2019-01-22 Transition Latrice Quevedo 1.2.840.114 [id number] Univers 00:00:00 00:00:00 of Care Rhonda Vazquez 350.1.13.10 it [place] of [place] [phone] [facility] [address] 2019-01-16 2019-01-19 [facility] Shekhar Allen 1.2.840.11 4 [id number] Univers 23:52:03 14:36:00 Encounter Martha Rowe 350.1.13.10 ity of [place] Finley [facility] 4.2.7.2.686 [place] [id number] [facility] [address] 2017-10-23 2017-10-27 Discharged 1 BROOKE, [facility] [id number] 17:29:00 16:54:00 Inpatient ALEXIS 90 Luke s - Patient s [facility] 2017-04-03 2017-04-04 Departed ER TAVON, [facility] [id number] 23:17:00 03:53:00 Emergency LAIRD 56 Luke s - Room Patient s [facility] 2017-03-05 2017-03-09 Discharged ER PHILIP, [facility] [id number] 06:54:00 10:58:00 Inpatient NICHELLE 44 Luke s - (obs) Patient s [facility] 2017-01-04 2017-01-05 Discharged [facility] [id number] 10:33:00 18:56:00 Inpatient 61 Luke s - (obs) Patient s [facility] Orders Doctor TATO 1.2.840.114 [id number] Univers 00:00:00 00:00:00 Only Unassigned, [place] 350.1.13.10 ity of [place] [facility] 4.2.7.2.686 Juan J as [phone] [facility] [address] Results Test Description Test Time Test Comments Results Result Comments Source POCT GLUCOSE (AUTOMATED) 2021-01-04 21:40:06 Test Item Value Reference Range Interpretation Comme nts POCT GLU (test code = 1425391997) 102 mg/dL 70-110 Lab Interpretation (test code = 13156-9) [facility] 18:07:54 Test Item Value Reference Range Interpretation Comments POCT GLU (test code = 4999791948) 107 mg/dL 70-110 Lab Interpretation (test code = Normal 82784-7) [facility] 17:23:15 Test Item Value Reference Range Interpretation Comments POCT GLU (test code = 3882544184) 77 mg/dL 70-110 Lab Interpretation (test code = Normal 64532-0) [facility]21-[facility]-04 12:54:12 Test Item Value Reference Range Interpretation Comments POCT GLU (test code = 2108389278) 79 mg/dL 70-110 Lab Interpretation (test code = Normal 69025-0) [facility] CARE VENOUS BLOOD [id number] 12:48:07 Test Item Value Reference Range Interpretation Comments PH (test code = 7.32-7.42 6858167727) PCO2 JEANMARIE (test code = See_Comment [Auto mated message] 2304431492) The system [facility] generated this result transmitted ref erence range: 41 - 51 mmHg. The reference r batsheva was not used to interpret this result as normal/abnor mal. PO2 JEANMARIE (test code = See_Comment L [Autom ated message] 4289333948) The system [facility] generated this result transmitted ref erence range: 25 - 40 mmHg. The reference r batsheva was not used to interpret this result as normal/abnor mal. HCO3 JEANMARIE (test code = See_Comment [Auto mated message] 5670876780) The system [facility] generated this result transmitted ref erence range: 24 - 28 mEq/L. The reference r batsheva was not used to interpret this result as normal/abnor mal. AC VBE(BEAKER) (test mEq/L code = 4504666698) Lab Interpretation (test Abnormal code = 03663-6) [facility] [id number] 11:40:16 Test Item Value Reference Range Interpretation Comments NT-proBNP (test code 2270 pg/mL See_Comment H [Autom ated = 2677347989) message] The system which generated this result transmitted reference range : <=125. The reference range was not used to interpret this result as normal/abnormal . DIANE (test code = DIANE) Biotin has been reported to cause a negative bias, interpret results relative to patient's use of biotin. Lab Interpretation Abnormal (test code = 72968-9) [facility] METABOLIC PANEL (57345)2021-01-04 11:32:56 Test Item Value Reference Range Interpretation Comments NA (test code = 133 mmol/L 135-145 L 6762540197) K (test code = 4.0 mmol/L 3.5-5.0 2090040906) CL (test code = 104 mmol/L 98-108 7996327925) CO2 TOTAL (test code = 23 mmol/L 23-31 7872996383) AGAP (test code = 2-16 0507928453) BUN (test code = 16 mg/dL 7-23 9209463978) GLUCOSE (test code = 90 mg/dL 70-110 4577289283) CREATININE (test code = 1.03 mg/dL 0.60-1.25 5663052983) TOTAL BILI (test code = 0.7 mg/dL 0.1-1.5 2611069672) CALCIUM (test code = 7.8 mg/dL 8.6-10.6 L 1579945911) T PROTEIN (test code = 6.5 g/dL 6.3-8.2 9834518555) ALBUMIN (test code = 3.2 g/dL 3.5-5.0 L 2481496168) ALK PHOS (test code = 181 U/L 34-122 H 4925286770) ALTv (test code = 17 U/L 5-50 1742-6) AST(SGOT) (test code = 38 U/L 13-40 2772315118) eGFR (test code = mL/min/1.73m2 7045865213) DIANE (test code = DIANE) Association of [...] tests). Lab Interpretation Abnormal (test code = 75280-7) [facility] WITH [id number] 11:18:32 Test Item Value Reference Range Interpretation [...] (test code = 52.9 fL 38.5-51.6 H 54821-4) RDW-CV (test code = 16.2 % 12.1-15.4 H 788-0) PLT (test code = See_Comment [Automated 777-3) message] The sy stem which generated this result transmitted reference range : 150 - 328 10*3/ ?L. The reference r batsheva was not used to interpret this result as normal/abnormal . MPV (test code = 10.3 fL 9.8-13.0 56835-3) NRBC/100 WBC (test See_Comment [Automat ed code = 8813707968) message] The system which generated this result transmitted reference range : 0.0 - 10.0 /100 WBCs. The refer ence range was not u sed to interpret th is result as normal/abnormal . NRBC x10^3 (test code <0.01 See_Comment [Auto mated = 4375669822) message] The s ystem which generated this result transmitted reference range : 10*3/?L. The reference range was not used to interpret this result as normal/abnormal . GRAN MAT (NEUT) % 56.8 % (test code = 770-8) IMM GRAN % (test code 0.30 % = 6213160377) LYMPH % (test code = 22.3 % 736-9) MONO % (test code = 14.4 % 5905-5) EOS % (test code = 5.9 % 713-8) BASO % (test code = 0.3 % 706-2) GRAN MAT x10^3(ANC) 2.01 10*3/uL 1.99-6.95 (test code = 3727531150) IMM GRAN x10^3 (test <0.03 0.00-0.06 code = 1788775275) LYMPH x10^3 (test code 0.79 10*3/uL 1.09-3.23 L = 731-0) MONO x10^3 (test code 0.51 10*3/uL 0.36-1.02 = 742-7) EOS x10^3 (test code = 0.21 10*3/uL 0.06-0.53 711-2) BASO x10^3 (test code <0.03 0.01-0.09 = 704-7) Lab Interpretation Abnormal (test code = 37191-6) [facility] GLUCOSE (AUTOMATED)2021-01-04 10:23:25 Test Item Value Reference Range Interpretation Comments POCT GLU (test code = 8273082677) 151 mg/dL 70-110 H Lab Interpretation (test code = Abnormal 51425-7) [facility] GLUCOSE (AUTOMATED)2021-01-04 04:33:27 Test Item Value Reference Range Interpretation Comments POCT GLU (test code = 6443213374) 79 mg/dL 70-110 Lab Interpretation (test code = Normal 44256-2) [facility]2021-01-04 04:33:27 Test Item Value Reference Range Interpretation Comments POCT GLU (test code = 8156781229) 75 mg/dL 70-110 Lab Interpretation (test code = Normal 36956-9) [facility] COVID [id number] 23:22:20COVID DMT InterpretationInterpretation/Recommendations:Molecular NAAT Tests for Active [...] COVID-19 testing the patient has had at [facility], includingmolecular NAAT testing (more commonly known as PCR testing and Rapid ID Now testing) and antibody testing. It does not take into account any testing that a patient has had outside of the [facility] medical record. [facility] LABORATORY SERVICESCOVID IaprlbpOXJN-GmI-8 Rapid ID NOW (no units) ? ? [...] ? ? ? 09/17/2019 ? Not Detected? [facility] GLUCOSE (AUTOMATED)2021-01-03 22:11:23 Test Item Value Reference Range Interpretation Comments POCT GLU (test code = 6340203821) 79 mg/dL 70-110 Lab Interpretation (test code = Normal 20924-8) [facility] GLUCOSE (AUTOMATED)2021-01-03 16:59:27 Test Item Value Reference Range Interpretation Comments POCT GLU (test code = 7763830307) 115 mg/dL 70-110 H Lab Interpretation (test code = Abnormal 96012-5) [facility]2021-01-03 12:38:13 Test Item Value Reference Range Interpretation Comments POCT GLU (test code = 3473163640) 65 mg/dL 70-110 L Lab Interpretation (test code = Abnormal 06883-9) [facility]MINAL [id number] 09:15:10 Test Item Value Reference Range Interpretation Comments NT-proBNP (test code 3650 pg/mL See_Comment H [Autom ated = 3044326853) message] The system which generated this result transmitted reference range : <=125. The reference range was not used to interpret this result as normal/abnormal . DIANE (test code = DIANE) Biotin has been reported to cause a negative bias, interpret results relative to patient's use of biotin. Lab Interpretation Abnormal (test code = 27474-5) [facility]. METABOLIC PANEL (98302)2021-01-03 09:06:29 Test Item Value Reference Range Interpretation Comments NA (test code = 138 mmol/L 135-145 2744492904) K (test code = 3.6 mmol/L 3.5-5.0 7412663781) CL (test code = 106 mmol/L 98-108 7370450042) CO2 TOTAL (test code = 28 mmol/L 23-31 3059975291) AGAP (test code = 2-16 9798310951) BUN (test code = 13 mg/dL 7-23 4202054025) GLUCOSE (test code = 97 mg/dL 70-110 7583182096) CREATININE (test code = 0.81 mg/dL 0.60-1.25 8726514908) TOTAL BILI (test code = 0.7 mg/dL 0.1-1.5 3573866075) CALCIUM (test code = 8.3 mg/dL 8.6-10.6 L 3032933126) T PROTEIN (test code = 6.3 g/dL 6.3-8.2 7463092010) ALBUMIN (test code = 3.1 g/dL 3.5-5.0 L 5820827570) ALK PHOS (test code = 206 U/L 34-122 H 7509235933) ALTv (test code = 22 U/L 5-50 1742-6) AST(SGOT) (test code = 30 U/L 13-40 9562995419) eGFR (test code = mL/min/1.73m2 3551842723) DIANE (test code = DIANE) Association of [...] tests). Lab Interpretation Abnormal (test code = 17618-2) [facility] GLUCOSE (AUTOMATED)2021-01-03 02:57:41 Test Item Value Reference Range Interpretation Comments POCT GLU (test code = 8481268635) 103 mg/dL 70-110 Lab Interpretation (test code = Normal 13543-6) [facility] GLUCOSE (AUTOMATED)2021-01-02 21:53:05 Test Item Value Reference Range Interpretation Comments POCT GLU (test code = 0246221257) 122 mg/dL 70-110 H Lab Interpretation (test code = Abnormal 51327-2) [facility]2021-01-02 16:56:11 Test Item Value Reference Range Interpretation Comments POCT GLU (test code = 1932810416) 153 mg/dL 70-110 H Lab Interpretation (test code = Abnormal 14728-9) [facility]inte[facility]OPONIN [id number] 16:27:16 Test Item Value Reference Interpretation Comments Range TROPONIN I (test 0.012 ng/mL See_Comment [Automated code = 1735077085) message] The system which generated this result [...] biotin. Lab Interpretation Normal (test code = 21535-2) [facility] CHEST 1 [id number] 14:45:43Impression: 1. Stable diffuse interstitial opacities, likely [...] Bilateral pleural effusions, unchanged.RL: 2824End [facility] 2021-[facility] 12:53:51 Test Item Value Reference Range Interpretation Comments POCT GLU (test code = 3217553830) 150 mg/dL 70-110 H Lab Interpretation (test code = Abnormal 33886-4) [facility] GLUCOSE (AUTOMATED)2021-01-02 11:40:40 Test Item Value Reference Range Interpretation Comments POCT GLU (test code = 8931838953) 103 mg/dL 70-110 Lab Interpretation (test code = Normal 32113-9) [id number] 09:31:29 Test Item Value Reference Interpretation Comments Range TROPONIN I (test 0.028 ng/mL See_Comment [Automated code = 2882472493) message] The system which generated this result [...] biotin. Lab Interpretation Normal (test code = 10814-4) [facility] [id number] 09:31:09 Test Item Value Reference Interpretation Comments Range TROPONIN I (test 0.029 ng/mL See_Comment [Automated code = 0102550890) message] The system which generated this result [...] biotin. Lab Interpretation Normal (test code = 45334-3) [facility] [id number] 09:27:51 Test Item Value Reference Range Interpretation Comments NT-proBNP (test code 6170 pg/mL See_Comment H [Autom ated = 9473483725) message] The system which generated this result transmitted reference range : <=125. The reference range was not used to interpret this result as normal/abnormal . DIANE (test code = DIANE) Biotin has been reported to cause a negative bias, interpret results relative to patient's use of biotin. Lab Interpretation Abnormal (test code = 88249-9) [facility]. METABOLIC PANEL (21213)2021-01-02 09:23:11 Test Item Value Reference Range Interpretation Comments NA (test code = 138 mmol/L 135-145 5751873761) K (test code = 3.8 mmol/L 3.5-5.0 8736900570) CL (test code = 108 mmol/L 98-108 6416772661) CO2 TOTAL (test code = 25 mmol/L 23-31 6166491477) AGAP (test code = 2-16 2717785064) BUN (test code = 11 mg/dL 7-23 3575141485) GLUCOSE (test code = 130 mg/dL 70-110 H 0718904092) CREATININE (test code = 0.67 mg/dL 0.60-1.25 3037002008) TOTAL BILI (test code = 1.0 mg/dL 0.1-1.2 3273915313) CALCIUM (test code = 8.6 mg/dL 8.6-10.6 7516356533) T PROTEIN (test code = 6.3 g/dL 6.3-8.2 0392688442) ALBUMIN (test code = 2.9 g/dL 3.5-5.0 L 4879239202) ALK PHOS (test code = 244 U/L 34-122 H 0211537206) ALTv (test code = 21 U/L 5-50 1742-6) AST(SGOT) (test code = 57 U/L 13-40 H 8809338244) eGFR (test code = mL/min/1.73m2 6719933357) DIANE (test code = DIANE) Association of [...] tests). Lab Interpretation Abnormal (test code = 21437-7) [facility]2021-08-14 09:23:11 Test Item Value Reference Range Interpretation Comments MAGNESIUM (test code = 5493790383) 1.6 mg/dL 1.7-2.4 L Lab Interpretation (test code = Abnormal 52450-0) [facility]2021-08-14 09:22:51 Test Item Value Reference Range Interpretation Comments PHOSPHORUS (test code = 4125554801) 4.8 mg/dL 2.5-5.0 Lab Interpretation (test code = Normal 78541-5) [facility] VEN[facility] BLOOD [id number] 09:10:17 Test Item Value Reference Range Interpretation Comments PH (test code = 7.32-7.42 2883714511) PCO2 JEANMARIE (test code = See_Comment [Auto mated message] 1016054704) The system [facility] generated this result transmitted ref erence range: 41 - 51 mmHg. The reference r batsheva was not used to interpret this result as normal/abnor mal. PO2 JEANMARIE (test code = See_Comment HH [Autom ated message] 1485026091) The system [facility] generated this result transmitted ref erence range: 25 - 40 mmHg. The reference r batsheva was not used to interpret this result as normal/abnor mal. HCO3 JEANMARIE (test code = See_Comment L [Auto mated message] 9380421340) The system [facility] generated this result transmitted ref erence range: 24 - 28 mEq/L. The reference r batsheva was not used to interpret this result as normal/abnor mal. AC VBE(BEAKER) (test mEq/L code = 6503433304) Lab Interpretation (test Abnormal code = 35121-8) [facility] WITH [id number] 09:01:07 Test Item Value Reference Range Interpretation [...] RDW-SD (test code = 49.2 fL 38.5-51.6 12878-2) RDW-CV (test code = 15.9 % 12.1-15.4 H 788-0) PLT (test code = See_Comment [Automated 777-3) message] The sy stem which generated this result transmitted reference range : 150 - 328 10*3/ ?L. The reference r batsheva was not used to interpret this result as normal/abnormal . MPV (test code = 9.5 fL 9.8-13.0 L 38909-8) NRBC/100 WBC (test See_Comment [Automat ed code = 9873582551) message] The system which generated this result transmitted reference range : 0.0 - 10.0 /100 WBCs. The refer ence range was not u sed to interpret th is result as normal/abnormal . NRBC x10^3 (test code <0.01 See_Comment [Auto mated = 7539816468) message] The s ystem which generated this result transmitted reference range : 10*3/?L. The reference range was not used to interpret this result as normal/abnormal . GRAN MAT (NEUT) % 65.8 % (test code = 770-8) IMM GRAN % (test code 0.40 % = 0766259317) LYMPH % (test code = 21.0 % 736-9) MONO % (test code = 9.0 % 5905-5) EOS % (test code = 3.4 % 713-8) BASO % (test code = 0.4 % 706-2) GRAN MAT x10^3(ANC) 3.44 10*3/uL 1.99-6.95 (test code = 7484758274) IMM GRAN x10^3 (test <0.03 0.00-0.06 code = 8550700943) LYMPH x10^3 (test code 1.10 10*3/uL 1.09-3.23 = 731-0) MONO x10^3 (test code 0.47 10*3/uL 0.36-1.02 = 742-7) EOS x10^3 (test code = 0.18 10*3/uL 0.06-0.53 711-2) BASO x10^3 (test code <0.03 0.01-0.09 = 704-7) Lab Interpretation Abnormal (test code = 41201-8) [facility] D, [id number] 08:52:33 Test Item Value Reference Range Interpretation Comments VIT D 25OH (test code = <13 25-80 L 36505-7) DIANE (test code = DIANE) Deficiency: <20 ng/mLInsufficiency: 20-24 ng/mLOptimal: 25-80 ng/mL Lab Interpretation (test Abnormal code = 67513-0) [facility] B12, [id number] 07:27:40 Test Item Value Reference Range Interpretation Comments VIT B12 (test code = 275 pg/mL 240-930 5966565200) DIANE (test code = DIANE) Biotin has been reported to cause a positive bias, interpret results relative to patient's use of biotin. Lab Interpretation (test Normal code = 61367-7) [facility]IN [id number] 02:35:43 Test Item Value Reference Interpretation Comments Range TROPONIN I (test 0.023 ng/mL See_Comment [Automated code = 4899205155) message] The system which generated this result [...] biotin. Lab Interpretation Normal (test code = 15688-0) [facility]inteTHYROID STIMULATING [id number] 02:10:37 Test Item Value Reference Range Interpretation Comments TSH (test code = See_Comment [Automated message] 5416826961) The system [facility] generated this result transmitted ref erence range: 0.45 - 4 .70 mIU/L. The refe rence range was not u sed to interpret this result as normal/abnor mal. Lab Interpretation (test Normal code = 68748-0) [facility]inteGLYCOSYLATED HEMOGLOBIN (A1C)2021-01-02 01:44:50 Test Item Value Reference Range Interpretation Comments HGB A1C (test code = 7.1 % 4.0-5.7 H 4548-4) DIANE (test code = DIANE) Reference RangesNormal: <5.7%Prediabetes: 5.7 - 6.4%Diabetes: > 6.5% Lab Interpretation (test Abnormal code = 59178-5) [facility] PointeLIPID PANEL (98552)(TOTAL CHOLESTEROL, TRIGLYCERIDES, HDL)2021-01-02 01:40:33 Test Item Value Reference Range Interpretation Comments CHOL (test code = 192 mg/dL 120-200 6672341136) HDL (test code = 32 mg/dL >40 L 0393115805) HDLC RATIO (test code = See_Comment H [Au tomated message] 5135571559) The system [facility] generated this result transmit ludmila reference range : <=5.0. The refe rence range was not u sed to interpret th is result as normal/abnormal . TRIG (test code = 114 mg/dL 30-170 1687736369) LDL CHOL (test code = 137 mg/dL See_Comment [Auto mated message] 42359-8) The system [facility] generated this result transmit ludmila reference range : <=160. The refe rence range was not u sed to interpret th is result as normal/abnormal . VLDL (test code = 23 mg/dL 5-60 5404001574) Lab Interpretation (test Abnormal code = 11892-3) [facility]2021-08-14 01:40:17 Test Item Value Reference Range Interpretation Comments MAGNESIUM (test code = 1230717469) 1.8 mg/dL 1.7-2.4 Lab Interpretation (test code = Normal 54703-9) [facility]2021-08-14 01:39:56 Test Item Value Reference Range Interpretation Comments PHOSPHORUS (test code = 4526477363) 4.2 mg/dL 2.5-5.0 Lab Interpretation (test code = Normal 27913-2) [facility]inteURIC [id number] 01:39:36 Test Item Value Reference Range Interpretation Comments URIC ACID (test code = 6186064759) 7.3 mg/dL 3.6-8.0 Lab Interpretation (test code = Normal 04033-4) [facility]CT CHEST PULMONARY [id number] 22:26:28Impression: Evaluation for pulmonary embolism is somewhat [...] in the thoracic spine. No acute bonyabnormality. [facility], Radiant Results Inft User - 01/01/2021 5:27 [...] prior median sternotomy. Advanced coronary arterycalcifications.RL: 111 [facility] 1 [id number] 21:11:53Edema type pattern. Increasing small effusions. RL: [...] unchanged.IMPRESSIONEdema type pattern. Increasing small effusions.RL: 6200 [facility] CampusAcute Care Arterial Blood Gas.2021-01-01 20:42:09 Test Item Value Reference Range Interpretation Comments PH (test code = 2) 7.35-7.45 H PCO2 (test code = See_Comment L [Automat ed message] 7951063186) The system [facility] generated this result transmitted ref erence range: 35 - 45 mmHg. The reference r batsheva was not used to interpret this result as normal/abnor mal. PO2 (test code = See_Comment [Automated message] 7854357321) The system [facility] generated this result transmitted ref erence range: 80 - 100 mmHg. The reference r batsheva was not used to interpret this result as normal/abnor mal. HCO3 (test code = See_Comment L [Automate d message] 2365488581) The system [facility] generated this result transmitted ref erence range: 22 - 26 mEq/L. The reference r batsheva was not used to interpret this result as normal/abnor mal. BE (test code = See_Comment [Automated message] 5072781591) The system [facility] Labs generated this result transmitted ref erence range: -3.0 - 3 .0 mEq/L. The refe rence range was not u sed to interpret this result as normal/abnor mal. Lab Interpretation (test Abnormal code = 88805-4) [facility] [id number] 20:22:59 Test Item Value Reference Interpretation Comments Range TROPONIN I (test 0.018 ng/mL See_Comment [Automated code = 9644750016) message] The system which generated this result [...] biotin. Lab Interpretation Normal (test code = 13544-3) [facility]inteN-TERMINAL [id number] 20:19:41 Test Item Value Reference Range Interpretation Comments NT-proBNP (test code 5610 pg/mL See_Comment H [Autom ated = 5042927843) message] The system which generated this result transmitted reference range : <=125. The reference range was not used to interpret this result as normal/abnormal . DIANE (test code = DIANE) Biotin has been reported to cause a negative bias, interpret results relative to patient's use of biotin. Lab Interpretation Abnormal (test code = 30318-1) [facility]inteACTIV[facility] PARTIAL THRMPLAS [id number] 20:14:36 Test Item Value Reference Range Interpretation Comments APTT Patient (test See_Comment [Automat ed code = 3173-2) message] The system which generated this result transmitted reference range : 23 - 38 Seconds . The reference range was not used to interpr et this result as normal/abnormal . DIANE (test code = DIANE) The [facility] patient population mean normal value for aPTT is 30 seconds. Lab Interpretation Normal (test code = 52024-9) [facility]intePROTHROMBIN TIME / [id number] 20:12:39 Test Item Value Reference Range Interpretation [...] tions. Lab Interpretation (test Normal code = 57447-2) [facility]inteCOMP. METABOLIC PANEL (43542)2021-01-01 20:10:58 Test Item Value Reference Range Interpretation Comments NA (test code = 140 mmol/L 135-145 3659293758) K (test code = 3.9 mmol/L 3.5-5.0 4914212047) CL (test code = 110 mmol/L 98-108 H 5089992857) CO2 TOTAL (test code = 22 mmol/L 23-31 L 2901516488) AGAP (test code = 2-16 9828256545) BUN (test code = 10 mg/dL 7-23 4820786359) GLUCOSE (test code = 108 mg/dL 70-110 1998347624) CREATININE (test code = 0.62 mg/dL 0.60-1.25 2791070243) TOTAL BILI (test code = 0.8 mg/dL 0.1-1.0 1072412884) CALCIUM (test code = 9.2 mg/dL 8.6-10.6 0501718636) T PROTEIN (test code = 7.4 g/dL 6.3-8.2 5469433882) ALBUMIN (test code = 3.5 g/dL 3.5-5.0 5384007182) ALK PHOS (test code = 178 U/L 34-122 H 2403401535) ALTv (test code = 14 U/L 5-50 1742-6) AST(SGOT) (test code = 21 U/L 13-40 1560683717) eGFR (test code = mL/min/1.73m2 7796576163) DIANE (test code = DIANE) Association of [...] tests). Lab Interpretation Abnormal (test code = 32865-2) [facility]OVID[facility] (ID NOW RAPID TESTING)2021-01-01 20:03:58 Test Item Value Reference Range Interpretation Comments SARS-CoV-2 Rapid ID NOW Not Detected Not Detected (test code = 96901-0) DIANE (test code = DIANE) ID NOW COVID-19 Assay is an isothermal nucleic acid amplification test intended for the qualitative detection of nucleic acid from SARS-CoV-2 viral RNA in nasopharyngeal ([employer]) specimens. It is used under Emergency Use [...] indicated. Lab Interpretation Normal (test code = 56868-7) [facility] WITH [id number] 19:49:17 Test Item Value Reference Range Interpretation Comments WBC (test code = See_Comment [Automated 3483-2) message] The sy stem which generated this result transmitted reference range : 4.20 - 10.70 10*3/?L. The reference range was not used to interpret this result as normal/abnormal . RBC (test code = See_Comment [Automated 300-4) message] The sy stem which generated this [...] RDW-SD (test code = 48.1 fL 38.5-51.6 58519-8) RDW-CV (test code = 15.9 % 12.1-15.4 H 788-0) PLT (test code = See_Comment [Automated 777-3) message] The sy stem which generated this result transmitted reference range : 150 - 328 10*3/ ?L. The reference r batsheva was not used to interpret this result as normal/abnormal . MPV (test code = 9.3 fL 9.8-13.0 L 57647-7) NRBC/100 WBC (test See_Comment [Automat ed code = 3790705359) message] The system which generated this result transmitted reference range : 0.0 - 10.0 /100 WBCs. The refer ence range was not u sed to interpret th is result as normal/abnormal . NRBC x10^3 (test code <0.01 See_Comment [Auto mated = 2622875917) message] The s ystem which generated this result transmitted reference range : 10*3/?L. The reference range was not used to interpret this result as normal/abnormal . GRAN MAT (NEUT) % 65.0 % (test code = 770-8) IMM GRAN % (test code 0.30 % = 4799543045) LYMPH % (test code = 21.7 % 736-9) MONO % (test code = 8.8 % 5905-5) EOS % (test code = 3.6 % 713-8) BASO % (test code = 0.6 % 706-2) GRAN MAT x10^3(ANC) 4.33 10*3/uL 1.99-6.95 (test code = 2178610169) IMM GRAN x10^3 (test <0.03 0.00-0.06 code = 5664701533) LYMPH x10^3 (test code 1.45 10*3/uL 1.09-3.23 = 731-0) MONO x10^3 (test code 0.59 10*3/uL 0.36-1.02 = 742-7) EOS x10^3 (test code = 0.24 10*3/uL 0.06-0.53 711-2) BASO x10^3 (test code 0.04 10*3/uL 0.01-0.09 = 704-7) Lab Interpretation Abnormal (test code = 06518-6) [facility] GLUCOSE (AUTOMATED)2021-01-01 19:46:14 Test Item Value Reference Range Interpretation Comments POCT GLU (test code = 6534040330) 111 mg/dL 70-110 H Lab Interpretation (test code = Abnormal 95523-7) [facility] GLUCOSE (AUTOMATED)2020-12-16 21:18:57 Test Item Value Reference Range Interpretation Comments POCT GLU (test code = 5547206879) 68 mg/dL 70-110 L Lab Interpretation (test code = Abnormal 80915-2) [facility] GLUCOSE (AUTOMATED)2020-12-16 17:06:02 Test Item Value Reference Range Interpretation Comments POCT GLU (test code = 8570925198) 110 mg/dL 70-110 Lab Interpretation (test code = Normal 82586-1) [facility]inte[facility]MINAL [id number] 13:47:58 Test Item Value Reference Range Interpretation Comments NT-proBNP (test code 3550 pg/mL See_Comment H [Autom ated = 8029644464) message] The system which generated this result transmitted reference range : <=125. The reference range was not used to interpret this result as normal/abnormal . DIANE (test code = DIANE) Biotin has been reported to cause a negative bias, interpret results relative to patient's use of biotin. Lab Interpretation Abnormal (test code = 05362-0) [facility] GLUCOSE (AUTOMATED)2020-12-16 12:53:54 Test Item Value Reference Range Interpretation Comments POCT GLU (test code = 8556165008) 91 mg/dL 70-110 Lab Interpretation (test code = Normal 01183-7) [facility] (NA, K, CL, CO2, GLUCOSE, BUN, CREATININE, CA)2020-12-16 10:19:49 Test Item Value Reference Range Interpretation Comments NA (test code = 137 mmol/L 135-145 6013809422) K (test code = 3.9 mmol/L 3.5-5.0 6885719390) CL (test code = 107 mmol/L 98-108 1419698004) CO2 TOTAL (test code = 22 mmol/L 23-31 L 8515863741) AGAP (test code = 2-16 6300121056) BUN (test code = 18 mg/dL 7-23 9924943348) GLUCOSE (test code = 89 mg/dL 70-110 8967521961) CREATININE (test code = 0.70 mg/dL 0.60-1.25 4910921960) CALCIUM (test code = 8.7 mg/dL 8.6-10.6 1958267817) eGFR (test code = mL/min/1.73m2 8288528032) DIANE (test code = DIANE) Association of [...] tests). Lab Interpretation Abnormal (test code = 51239-9) [facility]inteMagnesium [id number] 06:19:17 Test Item Value Reference Range Interpretation Comments MAGNESIUM (test code = 7501176317) 1.7 mg/dL 1.7-2.4 Lab Interpretation (test code = Normal 73754-9) [facility] GLUCOSE (AUTOMATED)2020-12-16 00:45:57 Test Item Value Reference Range Interpretation Comments POCT GLU (test code = 0084880595) 134 mg/dL 70-110 H Lab Interpretation (test code = Abnormal 82615-5) [facility]inteGLYCOSYLATED HEMOGLOBIN (A1C)2020-12-15 22:14:19 Test Item Value Reference Range Interpretation Comments HGB A1C (test code = 7.0 % 4.0-5.7 H 4548-4) DIANE (test code = DIANE) Reference RangesNormal: <5.7%Prediabetes: 5.7 - 6.4%Diabetes: > 6.5% Lab Interpretation (test Abnormal code = 53002-1) [facility] GLUCOSE (AUTOMATED)2020-12-15 21:43:05 Test Item Value Reference Range Interpretation Comments POCT GLU (test code = 9327333234) 100 mg/dL 70-110 Lab Interpretation (test code = Normal 02920-6) [facility]inteGlycosylated Hemoglobin (A1C)2020-12-15 20:10:30 Test Item Value Reference Range Interpretation Comments HGB A1C (test code = 7.0 % 4.0-5.7 H 4548-4) DIANE (test code = DIANE) Reference RangesNormal: <5.7%Prediabetes: 5.7 - 6.4%Diabetes: > 6.5% Lab Interpretation (test Abnormal code = 30955-2) [facility]inteLAB ONLY COVID [id number] 19:24:48COVID DMT InterpretationInterpretation/Recommendations:Molecular NAAT Tests for Active [...] COVID-19 testing the patient has had at [facility], includingmolecular NAAT testing (more commonly known as PCR testing and Rapid ID Now testing) and antibody testing. It does not take into account any testing that a patient has had outside of the [facility] medical record. [facility] LABORATORY SERVICESCOVID PmohofjBMSG-JeU-8 Rapid ID NOW (no units) ? ? [...] ? ? 09/17/2019 ? Not Detected ? [facility] LABORATORY SERVICESUnThe [facility] CampusN-TERMINAL PRO-BNP 2020-12-15 18:47:44 Test Item Value Reference Range Interpretation Comments NT-proBNP (test code 4560 pg/mL See_Comment H [Autom ated = 5323174707) message] The system which generated this result transmitted reference range : <=125. The reference range was not used to interpret this result as normal/abnormal . DIANE (test code = DIANE) Biotin has been reported to cause a negative bias, interpret results relative to patient's use of biotin. Lab Interpretation Abnormal (test code = 07889-6) [facility] PointeLIPID PANEL (19738)(TOTAL CHOLESTEROL, TRIGLYCERIDES, HDL)2020-12-15 18:38:58 Test Item Value Reference Range Interpretation Comments CHOL (test code = 188 mg/dL 120-200 5656260066) HDL (test code = 30 mg/dL >40 L 2980381599) HDLC RATIO (test code = See_Comment H [Au tomated message] 0111826356) The system [employer] generated this result transmit ludmila reference range : <=5.0. The refe rence range was not u sed to interpret th is result as normal/abnormal . TRIG (test code = 99 mg/dL 30-170 8952461833) LDL CHOL (test code = 138 mg/dL See_Comment [Auto mated message] 54795-6) The system [employer] [facility] generated this result transmit ludmila reference range : <=160. The refe rence range was not u sed to interpret th is result as normal/abnormal . VLDL (test code = 20 mg/dL 5-60 9390682053) Lab Interpretation (test Abnormal code = 14357-4) [facility]intePOCT GLUCOSE (AUTOMATED)2020-12-15 17:02:24 Test Item Value Reference Range Interpretation Comments POCT GLU (test code = 7844080056) 115 mg/dL 70-110 H Lab Interpretation (test code = Abnormal 89633-2) [facility] PointeXR CHEST 1 [id number] 16:39:09 No radiographic evidence of acute cardiopulmonary process. Preliminary Report Dictated by Resident: Ced Santos MD., have reviewed this study and agree [...] acute cardiopulmonary process.Preliminary Report Dictated by Resident: Ced Nogueira MD., have reviewed this study and agree with theabove report.[facility]intePONC GLUCOSE (AUTOMATED)2020-12-15 13:54:13 Test Item Value Reference Range Interpretation Comments POCT GLU (test code = 7492861171) 122 mg/dL 70-110 H Lab Interpretation (test code = Abnormal 64892-4) [facility] [id number] 10:58:44 Test Item Value Reference Interpretation Comments Range TROPONIN I (test 0.028 ng/mL See_Comment [Automated code = 9608339731) message] The system which generated this result [...] biotin. Lab Interpretation Normal (test code = 64460-8) [facility] [id number] 08:49:06 Test Item Value Reference Interpretation Comments Range TROPONIN I (test 0.020 ng/mL See_Comment [Automated code = 5717046666) message] The system which generated this result [...] biotin. Lab Interpretation Normal (test code = 15116-6) [facility] PointeTRJUANITON [id number] 02:53:29 Test Item Value Reference Interpretation Comments Range TROPONIN I (test 0.018 ng/mL See_Comment [Automated code = 2339889974) message] The system which generated this result [...] biotin. Lab Interpretation Normal (test code = 71164-9) [facility]inteCOVID-19 (ID NOW RAPID TESTING)2020-12-15 01:32:25 Test Item Value Reference Range Interpretation Comments SARS-CoV-2 Rapid ID NOW Not Detected Not Detected (test code = 37995-0) DIANE (test code = DIANE) ID NOW COVID-19 Assay is an isothermal nucleic acid amplification test intended for the qualitative detection of nucleic acid from SARS-CoV-2 viral RNA in nasopharyngeal ([employer]) specimens. It is used under Emergency Use [...] indicated. Lab Interpretation Normal (test code = 58082-3) [facility]inteTROPONIN [id number] 00:05:45 Test Item Value Reference Interpretation Comments Range TROPONIN I (test 0.016 ng/mL See_Comment [Automated code = 5735697081) message] The system which generated this result [...] biotin. Lab Interpretation Normal (test code = 85017-2) [facility] PointeaPTT2021-07-26 23:57:00 Test Item Value Reference Range Interpretation Comments APTT Patient (test See_Comment [Automat ed code = 3173-2) message] The system which generated this result transmitted reference range : 23 - 38 Seconds . The reference range was not used to interpr et this result as normal/abnormal . DIANE (test code = DIANE) The [facility] patient population mean normal value for aPTT is 30 seconds. Lab Interpretation Normal (test code = 31351-6) [facility] PointePROTHROMBIN TIME / [id number] 23:54:58 Test Item Value Reference Range Interpretation [...] tions. Lab Interpretation (test Abnormal code = 71814-9) [facility] (90261[facility]2020-12-14 23:54:38 Test Item Value Reference Range Interpretation Comments NA (test code = 138 mmol/L 135-145 5054540532) K (test code = 3.8 mmol/L 3.5-5.0 2329073401) CL (test code = 107 mmol/L 98-108 0626129837) CO2 TOTAL (test code = 23 mmol/L 23-31 6740049659) AGAP (test code = 2-16 1644469765) BUN (test code = 15 mg/dL 7-23 1422829810) GLUCOSE (test code = 126 mg/dL 70-110 H 4338133713) CREATININE (test code = 0.70 mg/dL 0.60-1.25 3805620224) TOTAL BILI (test code = 0.7 mg/dL 0.1-1.9 4512705028) CALCIUM (test code = 9.0 mg/dL 8.6-10.6 5717656028) T PROTEIN (test code = 7.1 g/dL 6.3-8.2 1167976450) ALBUMIN (test code = 3.5 g/dL 3.5-5.0 7802353194) ALK PHOS (test code = 110 U/L 34-122 0868404322) ALTv (test code = 12 U/L 5-50 1742-6) AST(SGOT) (test code = 22 U/L 13-40 5586179095) eGFR (test code = mL/min/1.73m2 0111527107) DIANE (test code = DIANE) Association of [...] tests). Lab Interpretation Abnormal (test code = 29813-3) [facility] PointeLIPASE, [id number] 23:54:23 Test Item Value Reference Range Interpretation Comments LIPASE (test code = 2285356875) 83 U/L 0-220 Lab Interpretation (test code = Normal 57357-3) [facility] PointeCB WITH [id number] 23:43:12 Test Item Value Reference Range Interpretation Comments WBC (test code = See_Comment [Automated 6690-2) message] The sy stem which generated this result transmitted reference range : 4.20 - 10.70 10*3/?L. The reference range was not used to interpret this result as normal/abnormal . RBC (test code = See_Comment L [Automated 939-8) message] The sy stem which generated this [...] RDW-SD (test code = 49.2 fL 38.5-51.6 76965-1) RDW-CV (test code = 16.0 % 12.1-15.4 H 788-0) PLT (test code = See_Comment [Automated 777-3) message] The sy stem which generated this result transmitted reference range : 150 - 328 10*3/ ?L. The reference r batsheva was not used to interpret this result as normal/abnormal . MPV (test code = 9.7 fL 9.8-13.0 L 32245-1) NRBC/100 WBC (test See_Comment [Automat ed code = 5744882691) message] The system which generated this result transmitted reference range : 0.0 - 10.0 /100 WBCs. The refer ence range was not u sed to interpret th is result as normal/abnormal . NRBC x10^3 (test code <0.01 See_Comment [Auto mated = 2113665143) message] The s ystem which generated this result transmitted reference range : 10*3/?L. The reference range was not used to interpret this result as normal/abnormal . GRAN MAT (NEUT) % 74.8 % (test code = 770-8) IMM GRAN % (test code 0.50 % = 5185581720) LYMPH % (test code = 15.1 % 736-9) MONO % (test code = 7.1 % 5905-5) EOS % (test code = 2.1 % 713-8) BASO % (test code = 0.4 % 706-2) GRAN MAT x10^3(ANC) 6.39 10*3/uL 1.99-6.95 (test code = 7568554938) IMM GRAN x10^3 (test 0.04 10*3/uL 0.00-0.06 code = 6679423990) LYMPH x10^3 (test code 1.29 10*3/uL 1.09-3.23 = 731-0) MONO x10^3 (test code 0.61 10*3/uL 0.36-1.02 = 742-7) EOS x10^3 (test code = 0.18 10*3/uL 0.06-0.53 711-2) BASO x10^3 (test code 0.03 10*3/uL 0.01-0.09 = 704-7) Lab Interpretation Abnormal (test code = 70264-6) [facility]inteGLUCOSE BEDSIDE [id number] 11:52:00 Test Item Value Reference Range Interpretation Comments GLUCOSE BEDSIDE TESTING (test code = 92 mg/dL 70-110 N GLUBED) GLUCOSE BEDSIDE [id number] 08:05:00 Test Item Value Reference Range Interpretation Comments GLUCOSE BEDSIDE TESTING (test code = 62 mg/dL 70-110 L GLUBED) GLUCOSE BEDSIDE [id number] 20:40:00 Test Item Value Reference Range Interpretation Comments GLUCOSE BEDSIDE TESTING (test code 105 mg/dL 70-110 N = GLUBED) GLUCOSE BEDSIDE [id number] 17:02:00 Test Item Value Reference Range Interpretation Comments GLUCOSE BEDSIDE TESTING (test code 128 mg/dL 70-110 H = GLUBED) GLUCOSE BEDSIDE [id number] 16:37:00 Test Item Value Reference Range Interpretation Comments GLUCOSE BEDSIDE TESTING (test code 105 mg/dL 70-110 N = GLUBED) GLUCOSE BEDSIDE [id number] 08:17:00 Test Item Value Reference Range Interpretation Comments GLUCOSE BEDSIDE TESTING (test code = 88 mg/dL 70-110 N GLUBED) GLUCOSE BEDSIDE [id number] 19:45:00 Test Item Value Reference Range Interpretation Comments GLUCOSE BEDSIDE TESTING (test code 115 mg/dL 70-110 H = GLUBED) GLUCOSE BEDSIDE [id number] 18:13:00 Test Item Value Reference Range Interpretation Comments GLUCOSE BEDSIDE TESTING (test code = 74 mg/dL 70-110 N GLUBED) GLUCOSE BEDSIDE [id number] 17:29:00 Test Item Value Reference Range Interpretation Comments GLUCOSE BEDSIDE TESTING (test code = 44 mg/dL 70-110 LL GLUBED) GLUCOSE BEDSIDE [id number] 12:26:00 Test Item Value Reference Range Interpretation Comments GLUCOSE BEDSIDE TESTING (test code = 96 mg/dL 70-110 N GLUBED) GLUCOSE BEDSIDE [id number] 08:21:00 Test Item Value Reference Range Interpretation Comments GLUCOSE BEDSIDE TESTING (test code = 77 mg/dL 70-110 N GLUBED) GLUCOSE BEDSIDE [id number] 20:12:00 Test Item Value Reference Range Interpretation Comments GLUCOSE BEDSIDE TESTING (test code = 91 mg/dL 70-110 N GLUBED) GLUCOSE BEDSIDE [id number] 16:42:00 Test Item Value Reference Range Interpretation Comments GLUCOSE BEDSIDE TESTING (test code 106 mg/dL 70-110 N = GLUBED) GLUCOSE BEDSIDE [id number] 11:49:00 Test Item Value Reference Range Interpretation Comments GLUCOSE BEDSIDE TESTING (test code = 89 mg/dL 70-110 N GLUBED) GLUCOSE BEDSIDE [id number] 08:22:00 Test Item Value Reference Range Interpretation Comments GLUCOSE BEDSIDE TESTING (test code = 68 mg/dL 70-110 L GLUBED) GLUCOSE BEDSIDE [id number] 20:05:00 Test Item Value Reference Range Interpretation Comments GLUCOSE BEDSIDE TESTING (test code 137 mg/dL 70-110 H = GLUBED) GLUCOSE BEDSIDE [id number] 16:42:00 Test Item Value Reference Range Interpretation Comments GLUCOSE BEDSIDE TESTING (test code = 98 mg/dL 70-110 N GLUBED) GLUCOSE BEDSIDE [id number] 11:13:00 Test Item Value Reference Range Interpretation Comments GLUCOSE BEDSIDE TESTING (test code 118 mg/dL 70-110 H = GLUBED) GLUCOSE BEDSIDE [id number] 07:37:00 Test Item Value Reference Range Interpretation Comments GLUCOSE BEDSIDE TESTING (test code 140 mg/dL 70-110 H = GLUBED) COMPREHENSIVE METABOLIC [id number] 06:34:00 Test Item Value Reference Range Interpretation [...] TOTAL (test code = ALKP) CBC W/AUTO [id number] 06:25:00 Test Item Value Reference Range Interpretation [...] DIFF/SCN CRITERIA = MDIFF) - CT ABDOMEN W/[id number] 03:09:00 [facility] 1960 Sex: M Name: ERNIE VANCE [facility] : 1960 Age/S: 60 / M [address] Unit #: [id number] Loc: [place] [address] Phys: Fede Carrera DO Acct: [id number] Dis Date: Status: ADM IN PHONE #: [phone] Exam Date: 10/31/20201919 FAX #: Reason: NAUSEA, VOMITING, DIARRHEA EXAMS: CPT: [id number] CT ABDOMEN W/CONTRAST 91170 EXAM: - CT ABDOMEN W/CONTRAST LOCATION: H61 [...] Report (CONTINUED) Name: ERNIE VANCE [facility] : 1960 Age/S: 60 / M [id number] [facility] Unit #: [id number] Loc: [place] [address] Phys: Fede Carrera DO Acct: [id number] Dis Date: Status: ADM IN PHONE #: [phone] Exam Date: 10/31/20201919 FAX #: Reason: NAUSEA, VOMITING, DIARRHEA EXAMS: CPT: [id number] CT ABDOMEN W/CONTRAST 23452 <Continued> small bowelwall thickening. The appendix is [...] Rohan(R) CTDI: DLP: Trnscb Date/Time: 11/01/2020 (308) t.SDR.TH15 Orig Print D/T: S: 11/01/2020 (311) PAGE 2 Signed ReportGLUCOSE BEDSIDE TESTING 2020-10-31 21:34:00 Test Item Value Reference Range Interpretation Comments GLUCOSE BEDSIDE TESTING (test code 161 mg/dL 70-110 H = GLUBED) GLUCOSE BEDSIDE [id number] 17:32:00 Test Item Value Reference Range Interpretation Comments GLUCOSE BEDSIDE TESTING (test code 136 mg/dL 70-110 H = GLUBED) - XR ABDOMEN 1 [id number] 12:44:00 [facility] 1960 Sex: M Name: ERNIE VANCE [facility] : 1960 Age/S: 60 / M [address] Unit #: [id number] Loc: [place] [address] Phys: Fede Carrera DO Acct: [id number] Dis Date: Status: ADM IN PHONE #: [phone] Exam Date: 10/31/2020 1227 FAX #: Reason:Abdominal pain in the lower qudarants EXAMS: CPT: [id number] XR ABDOMEN 1 V 70269 Fluoro Time: DAP (Gy m2): Air Kerma [...] small bowel loops. Overall nonspecific appearance. at 2074 Reported and signed by: Ananth Schmidt M.D. CC: Nika Martin MD; Fede Carrera DO PAGE 1 Signed Report Name: ERNIE VANCE [facility] : 1960 Age/S: 60 / M [address] Unit #: [id number] Loc: [place] [address] Phys: Fede Carrera DO Acct: [id number] Dis Date: Status: ADM IN PHONE #: [phone] Exam Date: 10/31/2020 1229 FAX #: Reason: Abdominal pain in the lower qudarants EXAMS: CPT: [id number] XR ABDOMEN 1 V 87897 Fluoro Time: DAP (Gy m2): Air Kerma (mGy): <Continued> Technologist: RT Rohan(R) Trnscb Date/Time: 10/31/2020 (4580) Lorena Orig Print D/T: S: 10/31/2020 (0810) PAGE 2 Signed ReportGLUCOSE BEDSIDE [id number] 11:58:00 Test Item Value Reference Range Interpretation Comments GLUCOSE BEDSIDE TESTING (test code 105 mg/dL 70-110 N = GLUBED) GLUCOSE BEDSIDE [id number] 08:01:00 Test Item Value Reference Range Interpretation Comments GLUCOSE BEDSIDE TESTING (test code 106 mg/dL 70-110 N = GLUBED) [id number] 22:46:00 Test Item Value Reference Range Interpretation [...] yby method. Completed by Nursing: NOGLUCOSE BEDSIDE [id number] 21:55:00 Test Item Value Reference Range Interpretation Comments GLUCOSE BEDSIDE TESTING (test code 119 mg/dL 70-110 H = GLUBED) [id number] 19:33:00 Test Item Value Reference Range Interpretation [...] method. Completed by Nursing: NOCoronavirus 2019 nCoV [id number] 18:46:00 Test Item Value Reference Range Interpretation Comments Coronavirus 2019 nCoV Negative Negative Per arnie west, Bedside (test code = negativ e results should [id number]) be treated aspresumptive a nd, if inconsistent [...] with COVID-19. Spec Comments: NNT PRO-BRAIN NATRIURETIC [id number] 15:51:00 Test Item Value Reference Range Interpretation Comments NT PRO-BRAIN NATRIURETIC PEPTI 6079 PG/ML 0-100 H (test code = PROBNP) Completed by Nursing: [id number] 15:51:00 Test Item Value Reference Range Interpretation [...] may babak yby method. Completed by Nursing: LUCEROBASIC METABOLIC [id number] 15:51:00 Test Item Value Reference Range Interpretation [...] Completed by Nursing: NO- XR CHEST 1 [id number] 15:42:00 [facility] ER[facility]IE VANCE : 1960 Sex: M Name: ERNIE VANCE [facility] : 1960 Age/S: 60 / M [address] Unit #: [id number] Loc: [place] [address] Phys: Todd Jacobo MD Acct: [id number] Dis Date: Status: PRE ER PHONE #: [phone] Exam Date: 10/30/2020 1524 FAX #: Reason:chest pain EXAMS: CPT: [id number] XR CHEST 1 V 76123 Fluoro Time: DAP (Gy m2): Air Kerma [...] PAGE 1 Signed Report Name: [facility] : 1960ge/S: 60 / M [address] Unit #: [id number] Loc: [place] [address] Phys: Todd Jacobo MD Acct: [id number] Dis Date: Status: PRE ER PHONE#: [phone] Exam Date: 10/30/2020 1526 FAX #: Reason: chest pain EXAMS: CPT: [id number] XR CHEST 1 V 66504 Fluoro Time: DAP (Gy m2): Air Kerma (mGy): <Continued> Technologist: Kim Andrews, RT(R)(CT) Trnscb Date/Time: 10/30/2020 (4355) [email or web address] Orig Print D/T: S: 10/30/2020 (5127) PAGE 2 [facility] 2020-10-30 15:31:00 Test Item Value [...] H MPV) FL UPPER GI SMALL BOWEL [id number] 17:22:39HISTORY: Nausea and upper abdominal pain. FINDINGS: [...] upper GI series. Normal small bowel series. [facility], Radiant Results Inft User - 10/28/2020 12:23 [...] Normal upper GI series. Normal small bowel series.[facility] URINALYSIS, [id number] 19:33:00 Test Item Value Reference Range Interpretation [...] 3267) Lab Interpretation (test code Abnormal = 83583-9) [facility], [id number] 19:33:00 Test Item Value Reference Range Interpretation [...] 3267) Lab Interpretation (test code Abnormal = 63286-7) [facility] ABDOMEN PELVIS WO [id number] 00:45:42Impression: 1. Anasarca.2. Large bilateral pleural effusions, [...] basesbilaterally. There are partially visualized pacemaker leads. [facility], Radiant Results Inft User - 09/28/2020 7:46 [...] Colonic diverticulosis, without diverticulitis.RL: 460End of Report [facility] COMP. METABOLIC PANEL (88810)2020-09-28 23:53:53 Test Item Value Reference Range Interpretation Comments NA (test code = 141 mmol/L 135-145 9571107990) K (test code = 4.1 mmol/L 3.5-5.0 2628157236) CL (test code = 106 mmol/L 98-108 6376291018) CO2 TOTAL (test code = 25 mmol/L 23-31 8480014714) AGAP (test code = 2-16 0431254519) BUN (test code = 13 mg/dL 7-23 6310407235) GLUCOSE (test code = 138 mg/dL 70-110 H 5452352723) CREATININE (test code = 0.66 mg/dL 0.60-1.25 9617414390) TOTAL BILI (test code = 0.5 mg/dL 0.1-1.2 9342058414) CALCIUM (test code = 8.7 mg/dL 8.6-10.6 9178332112) T PROTEIN (test code = 7.2 g/dL 6.3-8.2 6004214840) ALBUMIN (test code = 4.0 g/dL 3.5-5.0 4175544286) ALK PHOS (test code = 167 U/L 34-122 H 3389952863) ALTv (test code = 12 U/L 5-50 1742-6) AST(SGOT) (test code = 21 U/L 13-40 2298019069) eGFR (test code = mL/min/1.73m2 2115287179) DIANE (test code = DIANE) Association of [...] tests). Lab Interpretation Abnormal (test code = 49403-1) [facility]inte[facility]IPASE2021-05-10 23:53:33 Test Item Value Reference Range Interpretation Comments LIPASE (test code = 5437547494) 198 U/L 0-220 Lab Interpretation (test code = Normal 55777-8) [facility] WITH [id number] 23:43:10 Test Item Value Reference Range Interpretation Comments WBC (test code = See_Comment [Automated 9709-2) message] The sy stem which generated this result transmitted reference range : 4.20 - 10.70 10*3/?L. The reference range was not used to interpret this result as normal/abnormal . RBC (test code = See_Comment L [Automated 575-1) message] The sy stem which generated this [...] (test code = 62.4 fL 38.5-51.6 H 21261-3) RDW-CV (test code = 19.7 % 12.1-15.4 H 788-0) PLT (test code = See_Comment [Automated 777-3) message] The sy stem which generated this result transmitted reference range : 150 - 328 10*3/ ?L. The reference r batsheva was not used to interpret this result as normal/abnormal . MPV (test code = 10.6 fL 9.8-13.0 16085-5) NRBC/100 WBC (test See_Comment [Automat ed code = 8998950380) message] The system which generated this result transmitted reference range : 0.0 - 10.0 /100 WBCs. The refer ence range was not u sed to interpret th is result as normal/abnormal . NRBC x10^3 (test code <0.01 See_Comment [Auto mated = 7264813295) message] The s ystem which generated this result transmitted reference range : 10*3/?L. The reference range was not used to interpret this result as normal/abnormal . GRAN MAT (NEUT) % 63.1 % (test code = 770-8) IMM GRAN % (test code 0.30 % = 9293308951) LYMPH % (test code = 21.7 % 736-9) MONO % (test code = 10.0 % 5905-5) EOS % (test code = 4.2 % 713-8) BASO % (test code = 0.7 % 706-2) GRAN MAT x10^3(ANC) 3.73 10*3/uL 1.99-6.95 (test code = 2507214170) IMM GRAN x10^3 (test <0.03 0.00-0.06 code = 4758661325) LYMPH x10^3 (test code 1.28 10*3/uL 1.09-3.23 = 731-0) MONO x10^3 (test code 0.59 10*3/uL 0.36-1.02 = 742-7) EOS x10^3 (test code = 0.25 10*3/uL 0.06-0.53 711-2) BASO x10^3 (test code 0.04 10*3/uL 0.01-0.09 = 704-7) Lab Interpretation Abnormal (test code = 07727-3) [facility] GLUCOSE (AUTOMATED)2020-09-26 21:48:35 Test Item Value Reference Range Interpretation Comments POCT GLU (test code = 4859797501) 101 mg/dL 70-110 Lab Interpretation (test code = Normal 03285-2) [facility]inte[facility] CHEST 1 [id number] 17:32:37 1. Stable small bilateral pleural effusions [...] small bilateral pleural effusions with adjacent atelectasis. [facility] 17:31:11 Test Item Value Reference Range Interpretation Comments POCT GLU (test code = 9568484449) 48 mg/dL 70-110 LL Lab Interpretation (test code = Abnormal 15987-5) [facility] GLUCOSE (AUTOMATED)2020-09-26 17:31:11 Test Item Value Reference Range Interpretation Comments POCT GLU (test code = 0435759369) 162 mg/dL 70-110 H Lab Interpretation (test code = Abnormal 80625-2) [facility] GLUCOSE (AUTOMATED)2020-09-26 16:48:17 Test Item Value Reference Range Interpretation Comments POCT GLU (test code = 7481336374) 259 mg/dL 70-110 H Lab Interpretation (test code = Abnormal 78343-0) [facility] GLUCOSE (AUTOMATED)2020-09-26 13:04:01 Test Item Value Reference Range Interpretation Comments POCT GLU (test code = 3502386405) 137 mg/dL 70-110 H Lab Interpretation (test code = Abnormal 58606-5) [facility]. METABOLIC PANEL (24406)2020-09-26 12:22:51 Test Item Value Reference Range Interpretation Comments NA (test code = 140 mmol/L 135-145 5293751585) K (test code = 3.9 mmol/L 3.5-5.0 8784622779) CL (test code = 104 mmol/L 98-108 5606196754) CO2 TOTAL (test code = 25 mmol/L 23-31 6386769194) AGAP (test code = 2-16 5174438921) BUN (test code = 14 mg/dL 7-23 3621125402) GLUCOSE (test code = 35 mg/dL 70-110 LL 4135770909) CREATININE (test code = 0.88 mg/dL 0.60-1.25 7945725968) TOTAL BILI (test code = 0.7 mg/dL 0.1-1.8 5470659169) CALCIUM (test code = 8.6 mg/dL 8.6-10.6 5255689245) T PROTEIN (test code = 6.9 g/dL 6.3-8.2 8550668562) ALBUMIN (test code = 3.8 g/dL 3.5-5.0 5659350865) ALK PHOS (test code = 178 U/L 34-122 H 9921755955) ALTv (test code = 17 U/L 5-50 1742-6) AST(SGOT) (test code = 28 U/L 13-40 2771998143) eGFR (test code = mL/min/1.73m2 4354556206) DIANE (test code = DIANE) Association of [...] tests). Lab Interpretation Abnormal (test code = 31320-3) [facility]inteN-TERMINAL [id number] 12:10:35 Test Item Value Reference Range Interpretation Comments NT-proBNP (test code 3170 pg/mL See_Comment H [Autom ated = 9977949805) message] The system which generated this result transmitted reference range : <=125. The reference range was not used to interpret this result as normal/abnormal . DIANE (test code = DIANE) Biotin has been reported to cause a negative bias, interpret results relative to patient's use of biotin. Lab Interpretation Abnormal (test code = 59716-9) [facility] WITH [id number] 12:02:17 Test Item Value Reference Range Interpretation [...] (test code = 62.7 fL 38.5-51.6 H 84286-8) RDW-CV (test code = 19.9 % 12.1-15.4 H 788-0) PLT (test code = See_Comment [Automated 777-3) message] The sy stem which generated this result transmitted reference range : 150 - 328 10*3/ ?L. The reference r batsheva was not used to interpret this result as normal/abnormal . MPV (test code = 10.3 fL 9.8-13.0 35533-0) NRBC/100 WBC (test See_Comment [Automat ed code = 5672501052) message] The system which generated this result transmitted reference range : 0.0 - 10.0 /100 WBCs. The refer ence range was not u sed to interpret th is result as normal/abnormal . NRBC x10^3 (test code <0.01 See_Comment [Auto mated = 3307571206) message] The s ystem which generated this result transmitted reference range : 10*3/?L. The reference range was not used to interpret this result as normal/abnormal . GRAN MAT (NEUT) % 46.0 % (test code = 770-8) IMM GRAN % (test code 0.80 % = 1046125674) LYMPH % (test code = 33.8 % 736-9) MONO % (test code = 13.0 % 5905-5) EOS % (test code = 5.6 % 713-8) BASO % (test code = 0.8 % 706-2) GRAN MAT x10^3(ANC) 2.45 10*3/uL 1.99-6.95 (test code = 3809416637) IMM GRAN x10^3 (test 0.04 10*3/uL 0.00-0.06 code = 0206096857) LYMPH x10^3 (test code 1.80 10*3/uL 1.09-3.23 = 731-0) MONO x10^3 (test code 0.69 10*3/uL 0.36-1.02 = 742-7) EOS x10^3 (test code = 0.30 10*3/uL 0.06-0.53 711-2) BASO x10^3 (test code 0.04 10*3/uL 0.01-0.09 = 704-7) Lab Interpretation Abnormal (test code = 99840-8) [facility] GLUCOSE (AUTOMATED)2020-09-25 21:57:56 Test Item Value Reference Range Interpretation Comments POCT GLU (test code = 6954571559) 73 mg/dL 70-110 Lab Interpretation (test code = Normal 63700-6) [facility] (GUAIAC) [id number] 17:21:04 Test Item Value Reference Range Interpretation Comments Occult (guaiac) Blood (test code = Negative Negative 5-8) Lab Interpretation (test code = Normal 86323-9) [facility] GLUCOSE (AUTOMATED)2020-09-25 17:04:59 Test Item Value Reference Range Interpretation Comments POCT GLU (test code = 1158518707) 78 mg/dL 70-110 Lab Interpretation (test code = Normal 98820-1) [facility] GLUCOSE (AUTOMATED)2020-09-25 13:12:39 Test Item Value Reference Range Interpretation Comments POCT GLU (test code = 2825045120) 124 mg/dL 70-110 H Lab Interpretation (test code = Abnormal 46183-4) [facility]inte[facility]-TERMINAL [id number] 12:19:15 Test Item Value Reference Range Interpretation Comments NT-proBNP (test code 3460 pg/mL See_Comment H [Autom ated = 5530647071) message] The system which generated this result transmitted reference range : <=125. The reference range was not used to interpret this result as normal/abnormal . DIANE (test code = DIANE) Biotin has been reported to cause a negative bias, interpret results relative to patient's use of biotin. Lab Interpretation Abnormal (test code = 42738-1) [facility]inte[facility]INE [id number] 12:12:26 Test Item Value Reference Range Interpretation Comments URINE CULTURE (test < 10,000 CFU/mL mixed code = 630-4) aerobic organisms - suggests endogenous microbial contamination [facility]inteMAGNESIUM2021-05-07 12:10:34 Test Item Value Reference Range Interpretation Comments MAGNESIUM (test code = 7112514507) 1.8 mg/dL 1.7-2.4 Lab Interpretation (test code = Normal 62871-9) [facility]inteCOMP. METABOLIC PANEL (14973)2020-09-25 12:10:19 Test Item Value Reference Range Interpretation Comments NA (test code = 143 mmol/L 135-145 0523360603) K (test code = 3.5 mmol/L 3.5-5.0 3922831020) CL (test code = 108 mmol/L 98-108 7085530658) CO2 TOTAL (test code = 24 mmol/L 23-31 9442590096) AGAP (test code = 2-16 2978587657) BUN (test code = 12 mg/dL 7-23 2318210511) GLUCOSE (test code = 71 mg/dL 70-110 0912934707) CREATININE (test code = 0.79 mg/dL 0.60-1.25 4661684864) TOTAL BILI (test code = 0.8 mg/dL 0.1-1.4 0654147346) CALCIUM (test code = 8.8 mg/dL 8.6-10.6 1291411190) T PROTEIN (test code = 7.0 g/dL 6.3-8.2 8289674003) ALBUMIN (test code = 3.7 g/dL 3.5-5.0 8137016428) ALK PHOS (test code = 198 U/L 34-122 H 8107062761) ALTv (test code = 21 U/L 5-50 1742-6) AST(SGOT) (test code = 39 U/L 13-40 8402842414) eGFR (test code = mL/min/1.73m2 7572714267) DIANE (test code = DIANE) Association of [...] tests). Lab Interpretation Abnormal (test code = 65522-6) [facility] WITH [id number] 11:35:34 Test Item Value Reference Range Interpretation Comments WBC (test code = See_Comment [Automated 7653-2) message] The sy stem which generated this [...] (test code = 61.3 fL 38.5-51.6 H 61967-0) RDW-CV (test code = 19.3 % 12.1-15.4 H 788-0) PLT (test code = See_Comment [Automated 777-3) message] The sy stem which generated this result transmitted reference range : 150 - 328 10*3/ ?L. The reference r batsheva was not used to interpret this result as normal/abnormal . MPV (test code = 10.1 fL 9.8-13.0 41368-1) NRBC/100 WBC (test See_Comment [Automat ed code = 6904588240) message] The system which generated this result transmitted reference range : 0.0 - 10.0 /100 WBCs. The refer ence range was not u sed to interpret th is result as normal/abnormal . NRBC x10^3 (test code <0.01 See_Comment [Auto mated = 7768333987) message] The s ystem which generated this result transmitted reference range : 10*3/?L. The reference range was not used to interpret this result as normal/abnormal . GRAN MAT (NEUT) % 81.4 % (test code = 770-8) IMM GRAN % (test code 0.40 % = 1704912329) LYMPH % (test code = 8.1 % 736-9) MONO % (test code = 7.9 % 5905-5) EOS % (test code = 1.8 % 713-8) BASO % (test code = 0.4 % 706-2) GRAN MAT x10^3(ANC) 7.77 10*3/uL 1.99-6.95 H (test code = 0851270597) IMM GRAN x10^3 (test 0.04 10*3/uL 0.00-0.06 code = 5013556366) LYMPH x10^3 (test code 0.77 10*3/uL 1.09-3.23 L = 731-0) MONO x10^3 (test code 0.75 10*3/uL 0.36-1.02 = 742-7) EOS x10^3 (test code = 0.17 10*3/uL 0.06-0.53 711-2) BASO x10^3 (test code 0.04 10*3/uL 0.01-0.09 = 704-7) Lab Interpretation Abnormal (test code = 27107-2) [facility]inteVITAMIN B12, [id number] 22:07:45 Test Item Value Reference Range Interpretation Comments VIT B12 (test code = 437 pg/mL 240-930 0474785587) DIANE (test code = DIANE) Biotin has been reported to cause a positive bias, interpret results relative to patient's use of biotin. Lab Interpretation (test Normal code = 35688-8) [facility] GLU[facility]SE (AUTOMATED)2020-09-24 21:24:02 Test Item Value Reference Range Interpretation Comments POCT GLU (test code = 8815428422) 107 mg/dL 70-110 Lab Interpretation (test code = Normal 44799-2) [facility] PointeFECAL PATHOGENS BY [id number] 19:46:36 Test Item Value Reference Range Interpretation Comments Campylobacter (jejuni, Negative Negative, coli and upsaliensis) Indeterminate, (test code = 41614-8) See comment Plesiomonas shigelloides Negative Negative, (test code = 89300-8) Indeterminate, See comment Salmonella (test code = Negative Negative, 33914-5) Indeterminate, See comment Yersinia enterocolitica Negative Negative, (test code = 50505-6) Indeterminate, See comment Vibrio (test code = Negative Negative, 09733-3) Indeterminate, See comment Vibrio cholerae (test Negative Negative, code = 89955-2) Indeterminate, See comment Enteroaggregative E. coli Negative Negative, (EAEC) (test code = Indeterminate, 57426-6) See comment Enteropathogenic E. coli Negative Negative, N/A, (EPEC) (test code = Indeterminate, 00002-9) See comment Enterotoxigenic E. coli Negative Negative, (ETEC) (test code = Indeterminate, 78917-8) See comment Shiga toxin-Producing E. Negative Negative, coli (STEC) (test code = Indeterminate, 10848-7) See comment Shigella/Enteroinvasive Negative Negative, E. coli (EIEC) (test code Indeterminate, = 50099-9) See comment Cryptosporidium (test Negative Negative, code = 80475-9) Indeterminate, See comment Cyclospora cayetanensis Negative Negative, (test code = 69114-5) Indeterminate, See comment Entamoeba histolytica Negative Negative, (test code = 51778-2) Indeterminate, See comment Giardia lamblia (test Negative Negative, code = 70096-0) Indeterminate, See comment Adenovirus F 40/41 (test Negative Negative, code = 18090-4) Indeterminate, See comment Astrovirus (test code = Negative Negative, 36631-2) Indeterminate, See comment Norovirus GI/GII (test Negative Negative, code = 09982-8) Indeterminate, See comment Rotavirus A (test code = Negative Negative, 02876-0) Indeterminate, See comment Sapovirus (test code = Negative Negative, 79031-3) Indeterminate, See comment DIANE (test code = DIANE) Negative:A negative result does not rule-out infection. ?This assay does not test for all potential infectious agents of diarrheal disease. Positive:A positive test result does not necessarily indicate the presence of viable organism. Lab Interpretation (test Normal code = 45993-8) [facility]inteFECAL [id number] 19:30:50 Test Item Value Reference Range Interpretation Comments Fecal Leukocytes (test code = Negative Negative 5560028359) Lab Interpretation (test code = Normal 96208-8) [facility]inteCLOSTRIDIUM DIFFICILE [id number] 17:27:30 Test Item Value Reference Range Interpretation Comments Clostridioides (Clostridium) Negative Negative difficile (test code = 28972-8) Lab Interpretation (test code = Normal 99195-5) [facility] (AUTOMATED)2020-09-24 17:06:38 Test Item Value Reference Range Interpretation Comments POCT GLU (test code = 8390451987) 81 mg/dL 70-110 Lab Interpretation (test code = Normal 21537-3) [facility] PointePROCALCITONIN2021-05-06 17:00:06 Test Item Value Reference Range Interpretation Comments Procalcitonin (test 0.02 ng/mL <0.07 code = 4834002327) DIANE (test code = DIANE) INTERPRETATION OF [...] lung abscess/empyema. For further information please refer to:[email or web address] Lab Interpretation Normal (test code = 28232-2) [facility]inteVITAMIN D, [id number] 16:58:53 Test Item Value Reference Range Interpretation Comments VIT D 25OH (test code = 13 ng/mL 25-80 L 05515-5) DIANE (test code = DIANE) Deficiency: <20 ng/mLInsufficiency: 20-24 ng/mLOptimal: 25-80 ng/mL Lab Interpretation (test Abnormal code = 32709-1) [facility] (AUTOMATED)2020-09-24 12:54:33 Test Item Value Reference Range Interpretation Comments POCT GLU (test code = 1946851490) 106 mg/dL 70-110 Lab Interpretation (test code = Normal 79331-3) [facility] PointeTROPONIN [id number] 12:23:41 Test Item Value Reference Range Interpretation Comments TROPONIN I (test 0.026 ng/mL See_Comment [Automated code = 7984036072) message] The system which generated this result [...] ? Lab Interpretation Normal (test code = 62178-4) [facility]inteN-TERMINAL [id number] 12:20:44 Test Item Value Reference Range Interpretation Comments NT-proBNP (test code 5200 pg/mL See_Comment H [Autom ated = 1080139986) message] The system which generated this result transmitted reference range : <=125. The reference range was not used to interpret this result as normal/abnormal . DIANE (test code = DIANE) Biotin has been reported to cause a negative bias, interpret results relative to patient's use of biotin. Lab Interpretation Abnormal (test code = 31687-7) [facility]inte[facility]. METABOLIC PANEL (89807)2020-09-24 12:13:01 Test Item Value Reference Range Interpretation Comments NA (test code = 142 mmol/L 135-145 7564851153) K (test code = 3.8 mmol/L 3.5-5.0 4197127049) CL (test code = 111 mmol/L 98-108 H 9146095975) CO2 TOTAL (test code = 22 mmol/L 23-31 L 9457215693) AGAP (test code = 2-16 7154506762) BUN (test code = 10 mg/dL 7-23 4390479938) GLUCOSE (test code = 109 mg/dL 70-110 3933964356) CREATININE (test code = 0.66 mg/dL 0.60-1.25 0329823859) TOTAL BILI (test code = 1.2 mg/dL 0.1-1.1 H 2459161248) CALCIUM (test code = 8.9 mg/dL 8.6-10.6 2548816137) T PROTEIN (test code = 6.9 g/dL 6.3-8.2 3650044956) ALBUMIN (test code = 3.7 g/dL 3.5-5.0 6883476887) ALK PHOS (test code = 133 U/L 34-122 H 9990030835) ALTv (test code = 11 U/L 5-50 2-6) AST(SGOT) (test code = 30 U/L 13-40 1838376094) eGFR (test code = mL/min/1.73m2 8808252222) DIANE (test code = DIANE) Association of [...] tests). Lab Interpretation Abnormal (test code = 83595-9) [facility] WITH [id number] 11:45:37 Test Item Value Reference Range Interpretation [...] (test code = 62.0 fL 38.5-51.6 H 17998-8) RDW-CV (test code = 19.8 % 12.1-15.4 H 788-0) PLT (test code = See_Comment [Automated 777-3) message] The sy stem which generated this result transmitted reference range : 150 - 328 10*3/ ?L. The reference r batsheva was not used to interpret this result as normal/abnormal . MPV (test code = 10.8 fL 9.8-13.0 36750-6) NRBC/100 WBC (test See_Comment [Automat ed code = 8807421819) message] The system which generated this result transmitted reference range : 0.0 - 10.0 /100 WBCs. The refer ence range was not u sed to interpret th is result as normal/abnormal . NRBC x10^3 (test code <0.01 See_Comment [Auto mated = 0332298034) message] The s ystem which generated this result transmitted reference range : 10*3/?L. The reference range was not used to interpret this result as normal/abnormal . GRAN MAT (NEUT) % 57.2 % (test code = 770-8) IMM GRAN % (test code 0.40 % = 7036785517) LYMPH % (test code = 25.9 % 736-9) MONO % (test code = 10.3 % 5905-5) EOS % (test code = 5.4 % 713-8) BASO % (test code = 0.8 % 706-2) GRAN MAT x10^3(ANC) 2.96 10*3/uL 1.99-6.95 (test code = 3857554898) IMM GRAN x10^3 (test <0.03 0.00-0.06 code = 4575908697) LYMPH x10^3 (test code 1.34 10*3/uL 1.09-3.23 = 731-0) MONO x10^3 (test code 0.53 10*3/uL 0.36-1.02 = 742-7) EOS x10^3 (test code = 0.28 10*3/uL 0.06-0.53 711-2) BASO x10^3 (test code 0.04 10*3/uL 0.01-0.09 = 704-7) Lab Interpretation Abnormal (test code = 94242-0) [facility] PointeSEDIMENTATION [id number] 04:34:43 Test Item Value Reference Range Interpretation Comments ESR (test code = See_Comment H [Automated message] 1793629819) The system Need Fixed h generated this result transmitted ref erence range: 0 - 10 m m/HR. The reference r batsheva was not used to interpret this result as normal/abnor mal. Lab Interpretation (test Abnormal code = 02265-3) [facility] [place]OP[place] [id number] 04:15:11 Test Item Value Reference Range Interpretation Comments TROPONIN I (test 0.020 ng/mL See_Comment [Automated code = 2629468659) message] The system which generated this result [...] ? Lab Interpretation Normal (test code = 69893-3) [facility] [id number] 04:09:49 Test Item Value Reference Range Interpretation Comments IRON (test code = 2598388869) 67 ug/dL 50-160 TIBC (test code = 6445546594) 332 ug/dL 250-410 % FE SAT (test code = 9038475230) 20 % 20-50 Lab Interpretation (test code = Normal 39796-2) [facility] [place]inteGLYCOSYLATED HEMOGLOBIN (A1C)2020-09-24 03:33:55 Test Item Value Reference Range Interpretation Comments HGB A1C (test code = 6.6 % 4.0-5.7 H 4548-4) DIANE (test code = DIANE) Reference RangesNormal: <5.7%Prediabetes: 5.7 - 6.4%Diabetes: > 6.5% Lab Interpretation (test Abnormal code = 19947-3) [facility] [place]URIC [id number] 03:28:24 Test Item Value Reference Range Interpretation Comments URIC ACID (test code = 6807061567) 8.0 mg/dL 3.6-8.0 Lab Interpretation (test code = Normal 67359-3) [facility] [place]inteTHYROID STIMULATING [id number] 03:28:19 Test Item Value Reference Range Interpretation Comments TSH (test code = See_Comment Biotin has been 5945171220) reported to cau se a negative bias, interpret resul ts relative to pat ient's use of biotin. [Automated mess age] The system [employer] generated this result transmitted ref erence range: 0.45 - 4 .70 mIU/L. The refe rence range was not u sed to interpret this result as normal/abnor mal. Lab Interpretation (test Normal code = 59652-9) [facility] [place]intePHOSPHORUS2021-05-06 03:28:09 Test Item Value Reference Range Interpretation Comments PHOSPHORUS (test code = 0672654351) 4.4 mg/dL 2.5-5.0 Lab Interpretation (test code = Normal 08754-6) [facility] [place]inteMAGNESIUM2021-05-06 03:28:03 Test Item Value Reference Range Interpretation Comments MAGNESIUM (test code = 2058280055) 2.0 mg/dL 1.7-2.4 Lab Interpretation (test code = Normal 84410-6) [facility] [place]inteFERRITIN [id number] 03:27:53 Test Item Value Reference Range Interpretation Comments FERRITIN (test code = 66.7 ng/mL 18.0-464.0 3971378884) DIANE (test code = DIANE) Biotin has been reported to cause a negative bias, interpret results relative to patient's use of biotin. Lab Interpretation (test Normal code = 68538-6) [facility] [place]inteCREATINE [id number] 03:27:43 Test Item Value Reference Range Interpretation Comments CK (test code = 7235039641) 63 U/L 33-194 Lab Interpretation (test code = Normal 35412-0) [facility] [place] PointeLIPID PANEL (76488)(TOTAL CHOLESTEROL, TRIGLYCERIDES, HDL)2020-09-24 02:30:13 Test Item Value Reference Range Interpretation Comments CHOL (test code = 180 mg/dL 120-200 7890859023) HDL (test code = 28 mg/dL >40 L 6406577802) HDLC RATIO (test code = See_Comment H [Au tomated message] 9200483261) The system [facility] [facility] generated this result transmit ludmila reference range : <=5.0. The refe rence range was not u sed to interpret th is result as normal/abnormal . TRIG (test code = 152 mg/dL 30-170 7941144280) LDL CHOL (test code = 122 mg/dL See_Comment [Auto mated message] 61194-5) The system [facility] generated this result transmit ludmila reference range : <=160. The refe rence range was not u sed to interpret th is result as normal/abnormal . VLDL (test code = 30 mg/dL 5-60 6707376193) Lab Interpretation (test Abnormal code = 07735-7) [facility] GLUCOSE (AUTOMATED)2020-09-24 01:29:04 Test Item Value Reference Range Interpretation Comments POCT GLU (test code = 5306312919) 137 mg/dL 70-110 H Lab Interpretation (test code = Abnormal 67422-0) [facility] [place]inteCritical [id number] 23:17:14Siva Can MD ? ? 09/23/2020 ?6:17 [...] condition and evaluation of patient's [facility]Un[facility] pelvis with [id number] 23:13:39 1. 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 [facility] [place] [facility]inteCT thorax with [id number] 22:58:21 1. ?No evidence of pulmonary embolism [...] reviewed this study and agree withthe above report.[facility] [place] Qyzflrhgce3734-54-08 21:00:34 Test Item Value Reference Range Interpretation Comments APPEARANCE (test code = Hazy Clear A 4498955837) COLOR (test code = Zoë Yellow A 4926157571) PH (test code = 4.8-8.0 1462227440) SP GRAVITY (test code = 1.003-1.030 3531341137) GLU U QUAL (test code = 50 mg/dL Normal A 5740702785) BLOOD (test code = 1+ Negative A 0449369124) KETONES (test code = Negative Negative 9139574249) PROTEIN (test code = 500 mg/dL Negative A 2887-8) UROBILIN (test code = 4.0 mg/dL Normal A 5721023012) BILIRUBIN (test code = Negative Negative 2147817201) NITRITE (test code = Negative Negative 4805208285) LEUK PETER (test code = Negative Negative 3560334035) RBC/HPF (test code = See_Comment [Autom ated message] 9055691127) The system [facility] generated this result transmit ludmila reference range : 0 - 3 HPF. The refe rence range was not u sed to interpret th is result as normal/abnormal . WBC/HPF (test code = See_Comment [Autom ated message] 6588088160) The system [facility] generated this result transmit ludmila reference range : 0 - 5 HPF. The refe rence range was not u sed to interpret th is result as normal/abnormal . BACTERIA (test code = Few Negative A 5766718689) MUCOUS (test code = Slight Negative LPF A 7044898987) SQ EPITH (test code = <1 HPF 0355164709) HYAL CAST (test code = See_Comment [Aut omated message] 8905346545) The system [facility] generated this result transmit ludmila reference range : <=2 LPF. The refere nce range was not u sed to interpret th is result as normal/abnormal . Lab Interpretation (test Abnormal code = 69686-9) [facility] [place]inteTroponin [id number] 20:26:45 Test Item Value Reference Range Interpretation Comments TROPONIN I (test 0.013 ng/mL See_Comment [Automated code = 3836572674) message] The system which generated this result [...] ? Lab Interpretation Normal (test code = 16028-1) [facility] [place]inteN-TERMINAL [id number] 20:23:45 Test Item Value Reference Range Interpretation Comments NT-proBNP (test code 4190 pg/mL See_Comment H [Autom ated = 0836323325) message] The system which generated this result transmitted reference range : <=125. The reference range was not used to interpret this result as normal/abnormal . DIANE (test code = DIANE) Biotin has been reported to cause a negative bias, interpret results relative to patient's use of biotin. Lab Interpretation Abnormal (test code = 29198-1) [facility] [place]inteType and Screen - ONCE [id number] 20:20:12 Test Item Value Reference Range Interpretation Comments ABO & RH (test code O Positive Performe d at [facility] = 20) Laboratory Serv [facility] [address] [place], [place] [id number] Free: [phone] A No. [id number] IAT (test code = Negative Performed a t [facility] 1185) Laboratory Serv [facility] [address] [place], [place] [id number] Free: [phone] A No. [id number] [facility] [place] PointeHepatic Function Panel (ALB, T.PRO, BILI T, BU/BC, ALT, AST, ALK PHOS)2020-09-23 20:15:06 Test Item Value Reference Range Interpretation Comments TOTAL BILI (test code = 5949240105) 0.8 mg/dL 0.1-1.1 BILI UNCON (test code = 1237479736) 0.5 mg/dL 0.1-1.1 BILI CONJ (test code = 7264236946) 0.0 mg/dL 0.0-0.3 T PROTEIN (test code = 2485320415) 6.8 g/dL 6.3-8.2 ALBUMIN (test code = 7273750671) 3.7 g/dL 3.5-5.0 ALK PHOS (test code = 8259157960) 115 U/L 34-122 ALTv (test code = 1742-6) 10 U/L 5-50 AST(SGOT) (test code = 5084046089) 20 U/L 13-40 Lab Interpretation (test code = Normal 86006-9) [facility] [place]Basic Metabolic Panel (NA, K, CL, CO2, GLUCOSE, BUN, CREATININE, CA)2020-09-23 20:14:46 Test Item Value Reference Range Interpretation Comments NA (test code = 141 mmol/L 135-145 1800112222) K (test code = 3.6 mmol/L 3.5-5.0 0054504311) CL (test code = 112 mmol/L 98-108 H 5033729828) CO2 TOTAL (test code = 20 mmol/L 23-31 L 4035340033) AGAP (test code = 2-16 7517020905) BUN (test code = 11 mg/dL 7-23 6364963485) GLUCOSE (test code = 159 mg/dL 70-110 H 7293451970) CREATININE (test code = 0.63 mg/dL 0.60-1.25 2576542974) CALCIUM (test code = 8.5 mg/dL 8.6-10.6 L 8112265782) eGFR (test code = mL/min/1.73m2 2403219546) DIANE (test code = DIANE) Association of [...] tests). Lab Interpretation Abnormal (test code = 64714-9) [facility] [place]inteLipase [id number] 20:14:46 Test Item Value Reference Range Interpretation Comments LIPASE (test code = 8305866269) 59 U/L 0-220 Lab Interpretation (test code = Normal 18142-2) [facility] [place]COVID-19 (ID NOW RAPID TESTING)2020-09-23 20:02:44 Test Item Value Reference Range Interpretation Comments SARS-CoV-2 Rapid ID NOW Not Detected Not Detected (test code = 66277-6) DIANE (test code = DIANE) ID NOW COVID-19 Assay is an isothermal nucleic acid amplification test intended for the qualitative detection of nucleic acid from SARS-CoV-2 viral RNA in nasopharyngeal ([employer]) specimens. It is used under Emergency Use [...] indicated. Lab Interpretation Normal (test code = 15179-1) [facility] [place] PointeaPTT2021-05-05 19:56:43 Test Item Value Reference Range Interpretation Comments APTT Patient (test See_Comment [Automat ed code = 3173-2) message] The system which generated this result transmitted reference range : 23 - 38 Seconds . The reference range was not used to interpr et this result as normal/abnormal . DAINE (test code = DIANE) The [facility] patient population mean normal value for aPTT is 30 seconds. Lab Interpretation Normal (test code = 09487-8) [facility] [place] PointeProthrombin Time (PT) / [id number] 19:53:59 Test Item Value Reference Range Interpretation [...] tions. Lab Interpretation (test Normal code = 48327-5) [facility] with Rgodojcwgwak3799-85-64 19:38:57 Test Item Value Reference Range Interpretation [...] (test code = 61.7 fL 38.5-51.6 H 83015-9) RDW-CV (test code = 19.9 % 12.1-15.4 H 788-0) PLT (test code = See_Comment [Automated 777-3) message] The sy stem which generated this result transmitted reference range : 150 - 328 10*3/ ?L. The reference r batsheva was not used to interpret this result as normal/abnormal . MPV (test code = 9.4 fL 9.8-13.0 L 61755-2) NRBC/100 WBC (test See_Comment [Automat ed code = 4922834318) message] The system which generated this result transmitted reference range : 0.0 - 10.0 /100 WBCs. The refer ence range was not u sed to interpret th is result as normal/abnormal . NRBC x10^3 (test code <0.01 See_Comment [Auto mated = 7401680917) message] The s ystem which generated this result transmitted reference range : 10*3/?L. The reference range was not used to interpret this result as normal/abnormal . GRAN MAT (NEUT) % 64.0 % (test code = 770-8) IMM GRAN % (test code 0.40 % = 2764444356) LYMPH % (test code = 22.4 % 736-9) MONO % (test code = 9.1 % 5905-5) EOS % (test code = 3.4 % 713-8) BASO % (test code = 0.7 % 706-2) GRAN MAT x10^3(ANC) 3.57 10*3/uL 1.99-6.95 (test code = 5808243983) IMM GRAN x10^3 (test <0.03 0.00-0.06 code = 1606400584) LYMPH x10^3 (test code 1.25 10*3/uL 1.09-3.23 = 731-0) MONO x10^3 (test code 0.51 10*3/uL 0.36-1.02 = 742-7) EOS x10^3 (test code = 0.19 10*3/uL 0.06-0.53 711-2) BASO x10^3 (test code 0.04 10*3/uL 0.01-0.09 = 704-7) Lab Interpretation Abnormal (test code = 67817-8) [facility] 1 [id number] 19:11:24HISTORY: Chest pain. TECHNIQUE: Portable AP view [...] changes are seen in the retrocardiac left lowerlung.[facility] CULTURE [id number] 03:02:43 Test Item Value Reference Range Interpretation Comments Blood Culture-Aerobic No organisms No growth Previo us (test code = 44711-7) isolated prelim inary verified result was Culture In Progress on 09/03/2020 at 05 22 CDTPrevious preliminary verified result was No growth a t 24 hours on 09/03/2020 at 22 CDTPrevious preliminary verified result was No growth a t 48 hours on 09/04/2020 at 22 02 CDTPrevious preliminary verified result was No growth a t 72 hours on 09/05/2020 at 22 01 CDT Blood No organisms No growth Previous Culture-Anaerobic isolated preliminar y (test code = 29961-7) verifi ed result was Culture In Progress on 09/03/2020 at 05 22 CDTPrevious preliminary verified result was No growth a t 24 hours on 09/03/2020 at 22 CDTPrevious preliminary verified result was No growth a t 48 hours on 09/04/2020 at 22 02 CDTPrevious preliminary verified result was No growth a t 72 hours on 09/05/2020 at 22 01 CDT Lab Interpretation Normal (test code = 08671-3) [facility] CULTURE [id number] 03:02:37 Test Item Value Reference Range Interpretation Comments Blood Culture-Aerobic No organisms No growth Previo us (test code = 71649-6) isolated prelim inary verified result was Culture [...] Culture-Anaerobic isolated preliminar y (test code = 96050-7) verifi ed result was Culture In Progress [...] CDT Lab Interpretation Normal (test code = 58546-4) [facility] GLUCOSE (AUTOMATED)2020-09-07 17:30:54 Test Item Value Reference Range Interpretation Comments POCT GLU (test code = 9092192574) 100 mg/dL 70-110 Lab Interpretation (test code = Normal 99887-5) [facility] GLUCOSE (AUTOMATED)2020-09-07 13:34:36 Test Item Value Reference Range Interpretation Comments POCT GLU (test code = 0174056373) 104 mg/dL 70-110 Lab Interpretation (test code = Normal 04561-0) [facility] [place]inteLAB ONLY COVID [id number] 03:22:39COVID DMT InterpretationInterpretation/Recommendations: Molecular NAAT Tests for [...] COVID-19 testing the patient has had at [facility], including molecular NAAT testing (more commonly known as PCR testing and Rapid ID Now testing) and antibody testing. It does not take into account any testing that a patient has had outside of the [facility] medical record. [facility] LABORATORY SERVICESCOVID Resul prIXXE-YeN-6 Rapid ID NOW (no units) ? ? [...] ? ? 09/17/2019 ? Not Detected ? [facility]2020-09-07 01:56:49 Test Item Value Reference Range Interpretation Comments POCT GLU (test code = 8817718313) 120 mg/dL 70-110 H Lab Interpretation (test code = Abnormal 03604-3) [facility] GLUCOSE (AUTOMATED)2020-09-06 14:03:31 Test Item Value Reference Range Interpretation Comments POCT GLU (test code = 7118632789) 107 mg/dL 70-110 Lab Interpretation (test code = Normal 41618-7) [facility] GLUCOSE (AUTOMATED)2020-09-06 02:46:39 Test Item Value Reference Range Interpretation Comments POCT GLU (test code = 2702039449) 132 mg/dL 70-110 H Lab Interpretation (test code = Abnormal 29570-4) [facility] GLUCOSE (AUTOMATED)2020-09-05 14:23:02 Test Item Value Reference Range Interpretation Comments POCT GLU (test code = 0371628877) 115 mg/dL 70-110 H Lab Interpretation (test code = Abnormal 28551-3) [facility] WITH [id number] 10:22:11 Test Item Value Reference Range Interpretation [...] (test code = 60.7 fL 38.5-51.6 H 10026-3) RDW-CV (test code = 18.3 % 12.1-15.4 H 788-0) PLT (test code = See_Comment [Automated 777-3) message] The sy stem which generated this result transmitted reference range : 150 - 328 10*3/ ?L. The reference r batsheva was not used to interpret this result as normal/abnormal . MPV (test code = 9.4 fL 9.8-13.0 L 13297-8) NRBC/100 WBC (test See_Comment [Automat ed code = 5975706626) message] The system which generated this result transmitted reference range : 0.0 - 10.0 /100 WBCs. The refer ence range was not u sed to interpret th is result as normal/abnormal . NRBC x10^3 (test code <0.01 See_Comment [Auto mated = 4331314832) message] The s ystem which generated this result transmitted reference range : 10*3/?L. The reference range was not used to interpret this result as normal/abnormal . GRAN MAT (NEUT) % 71.6 % (test code = 770-8) IMM GRAN % (test code 0.40 % = 7725384233) LYMPH % (test code = 16.1 % 736-9) MONO % (test code = 7.1 % 5905-5) EOS % (test code = 4.1 % 713-8) BASO % (test code = 0.7 % 706-2) GRAN MAT x10^3(ANC) 6.60 10*3/uL 1.99-6.95 (test code = 0134745959) IMM GRAN x10^3 (test 0.04 10*3/uL 0.00-0.06 code = 7422027302) LYMPH x10^3 (test code 1.48 10*3/uL 1.09-3.23 = 731-0) MONO x10^3 (test code 0.65 10*3/uL 0.36-1.02 = 742-7) EOS x10^3 (test code = 0.38 10*3/uL 0.06-0.53 711-2) BASO x10^3 (test code 0.06 10*3/uL 0.01-0.09 = 704-7) Lab Interpretation Abnormal (test code = 77571-6) [facility]:21:19 Test Item Value Reference Range Interpretation Comments POCT GLU (test code = 7022826689) 171 mg/dL 70-110 H Lab Interpretation (test code = Abnormal 48123-6) [facility] GLUCOSE (AUTOMATED)2020-09-04 21:20:39 Test Item Value Reference Range Interpretation Comments POCT GLU (test code = 4012459178) 160 mg/dL 70-110 H Lab Interpretation (test code = Abnormal 76529-5) [facility]inteLIPASE2021-04-16 16:05:28 Test Item Value Reference Range Interpretation Comments LIPASE (test code = 4140426176) 106 U/L 0-220 Lab Interpretation (test code = Normal 80981-8) [facility] GLUCOSE (AUTOMATED)2020-09-04 15:41:59 Test Item Value Reference Range Interpretation Comments POCT GLU (test code = 3051193766) 102 mg/dL 70-110 Lab Interpretation (test code = Normal 88404-9) [facility] GLUCOSE (AUTOMATED)2020-09-04 14:16:43 Test Item Value Reference Range Interpretation Comments POCT GLU (test code = 6438273222) 73 mg/dL 70-110 Lab Interpretation (test code = Normal 32543-6) [facility] GLUCOSE (AUTOMATED)2020-09-03 23:42:28 Test Item Value Reference Range Interpretation Comments POCT GLU (test code = 7031820902) 172 mg/dL 70-110 H Lab Interpretation (test code = Abnormal 66157-9) [facility] GLUCOSE (AUTOMATED)2020-09-03 15:24:47 Test Item Value Reference Range Interpretation Comments POCT GLU (test code = 1073984515) 71 mg/dL 70-110 Lab Interpretation (test code = Normal 86099-3) [facility] GLUCOSE (AUTOMATED)2020-09-03 08:17:31 Test Item Value Reference Range Interpretation Comments POCT GLU (test code = 5289398776) 83 mg/dL 70-110 Lab Interpretation (test code = Normal 48406-4) [facility] GLUCOSE (AUTOMATED)2020-09-03 07:42:01 Test Item Value Reference Range Interpretation Comments POCT GLU (test code = 5117312231) 59 mg/dL 70-110 L Lab Interpretation (test code = Abnormal 17643-4) [facility] METABOLIC PANEL (NA, K, CL, CO2, GLUCOSE, BUN, CREATININE, CA)2020-09-03 02:06:48 Test Item Value Reference Range Interpretation Comments NA (test code = 136 mmol/L 135-145 7130669021) K (test code = 4.6 mmol/L 3.5-5.0 3133163047) CL (test code = 104 mmol/L 98-108 9893438861) CO2 TOTAL (test code = 23 mmol/L 23-31 9367429495) AGAP (test code = 2-16 6286623690) BUN (test code = 28 mg/dL 7-23 H 3627165125) GLUCOSE (test code = 197 mg/dL 70-110 H 9073708754) CREATININE (test code = 1.15 mg/dL 0.60-1.25 9299593341) CALCIUM (test code = 7.7 mg/dL 8.6-10.6 L 9746133933) eGFR (test code = mL/min/1.73m2 7111533606) DIANE (test code = DIANE) Association of [...] tests). Lab Interpretation Abnormal (test code = 85584-9) [facility]inteN-TERMINAL [id number] 02:06:38 Test Item Value Reference Range Interpretation Comments NT-proBNP (test code 1630 pg/mL See_Comment H [Autom ated = 0537036988) message] The system which generated this result transmitted reference range : <=125. The reference range was not used to interpret this result as normal/abnormal . DIANE (test code = DIANE) Biotin has been reported to cause a negative bias, interpret results relative to patient's use of biotin. Lab Interpretation Abnormal (test code = 03982-9) [facility] [place]inteHEPATIC FUNCTION PANEL (11364) (ALB,T.PRO,BILI T,BU/BC,ALT,AST,ALK PHOS)2020-09-03 01:58:26 Test Item Value Reference Range Interpretation Comments TOTAL BILI (test code = 5819488981) 0.2 mg/dL 0.1-1.1 BILI UNCON (test code = 2293815299) 0.0 mg/dL 0.1-1.1 L BILI CONJ (test code = 4023752084) 0.0 mg/dL 0.0-0.3 T PROTEIN (test code = 9726451666) 6.1 g/dL 6.3-8.2 L ALBUMIN (test code = 1967054061) 3.2 g/dL 3.5-5.0 L ALK PHOS (test code = 0807818061) 67 U/L 34-122 ALTv (test code = 1742-6) 13 U/L 5-50 AST(SGOT) (test code = 1632506609) 20 U/L 13-40 Lab Interpretation (test code = Abnormal 88642-6) [facility]inteLIPASE2021-04-15 01:58:26 Test Item Value Reference Range Interpretation Comments LIPASE (test code = 5170687240) 774 U/L 0-220 H Lab Interpretation (test code = Abnormal 90483-6) [facility]inteXR CHEST 1 [id number] 23:51:42Impression: 1. Retrocardiac consolidation or atelectasis.2. Mildly [...] clips project at the right upper quadrant. [facility], Radiant Results Inft User - [...] Mildly enlarged cardiac silhouette.RL: [id number] of Report UnThe [facility] CampusCOVID-19 (ID NOW RAPID TESTING)2020-09-02 23:41:38 Test Item Value Reference Range Interpretation Comments SARS-CoV-2 Rapid ID NOW Not Detected Not Detected (test code = 48199-2) DIANE (test code = DIANE) ID NOW COVID-19 Assay is an isothermal nucleic acid amplification test intended for the qualitative detection of nucleic acid from SARS-CoV-2 viral RNA in nasopharyngeal ([employer]) specimens. It is used under Emergency Use [...] indicated. Lab Interpretation Normal (test code = 08444-8) [facility] PointeLactic Acid Whole [id number] 23:25:01 Test Item Value Reference Range Interpretation Comments LACTIC ACID (test code = 1.50 mmol/L 0.50-2.20 9813266625) Lab Interpretation (test code = Normal 44162-2) [facility] [place] PointeTROPONIN [id number] 22:49:31 Test Item Value Reference Range Interpretation Comments TROPONIN I (test 0.010 ng/mL See_Comment [Automated code = 7870688495) message] The system which generated this result [...] ? Lab Interpretation Normal (test code = 63921-2) [facility]. METABOLIC PANEL (54499)2020-09-02 22:39:11 Test Item Value Reference Range Interpretation Comments NA (test code = 135 mmol/L 135-145 1535133832) K (test code = 4.7 mmol/L 3.5-5.0 9397512763) CL (test code = 101 mmol/L 98-108 6118652624) CO2 TOTAL (test code = 24 mmol/L 23-31 2846496128) AGAP (test code = 2-16 6160218495) BUN (test code = 29 mg/dL 7-23 H 1703619445) GLUCOSE (test code = 217 mg/dL 70-110 H 1531587362) CREATININE (test code = 1.21 mg/dL 0.60-1.25 5697431112) TOTAL BILI (test code = 0.2 mg/dL 0.1-1.4 1033131117) CALCIUM (test code = 8.3 mg/dL 8.6-10.6 L 2975783925) T PROTEIN (test code = 6.4 g/dL 6.3-8.2 4033571510) ALBUMIN (test code = 3.3 g/dL 3.5-5.0 L 2378740599) ALK PHOS (test code = 69 U/L 34-122 9863899968) ALTv (test code = 15 U/L 5-50 2-6) AST(SGOT) (test code = 19 U/L 13-40 4140009830) eGFR (test code = mL/min/1.73m2 5050490423) DIANE (test code = DIANE) Association of [...] tests). Lab Interpretation Abnormal (test code = 27243-8) [facility] [place] PointePROTHROMBIN TIME / [id number] 22:33:07 Test Item Value Reference Range Interpretation [...] tions. Lab Interpretation (test Abnormal code = 56557-1) [facility] [id number] 22:31:08 Test Item Value Reference Range Interpretation Comments WBC (test code = See_Comment H [Automated 6890-2) message] The system which generated this result transmit ludmila reference range : 4.20 - 10.70 10*3/?L. The reference range was not used to interpret this result as normal/abnormal . RBC (test code = See_Comment L [Automated 479-8) message] The system which generated this result [...] (test code = 57.2 fL 38.5-51.6 H 57676-6) RDW-CV (test code = 17.9 % 12.1-15.4 H 788-0) PLT (test code = See_Comment H [Automated 777-3) message] The system which generated this result transmit ludmila reference range : 150 - 328 10*3/ ?L. The reference range was not u sed to interpret th is result as normal/abnormal . MPV (test code = 9.3 fL 9.8-13.0 L 33031-2) NRBC/100 WBC (test See_Comment [Automat ed code = 8278016007) message] The system which generated this result transmit ludmila reference range : 0.0 - 10.0 /100 WBCs. The reference range was not used to interpret this result as normal/abnormal . NRBC x10^3 (test code <0.01 See_Comment [Auto mated = 5204994139) message] The system which generated this result transmit ludmila reference range : 10*3/?L. The reference range was not used to interpret this result as normal/abnormal . GRAN MAT (NEUT) % 81.2 % (test code = 770-8) IMM GRAN % (test code 1.10 % = 0529394681) LYMPH % (test code = 9.4 % 736-9) MONO % (test code = 4.5 % 5905-5) EOS % (test code = 3.4 % 713-8) BASO % (test code = 0.4 % 706-2) GRAN MAT x10^3(ANC) 11.36 10*3/uL 1.99-6.95 H (test code = 9697487708) IMM GRAN x10^3 (test 0.15 10*3/uL 0.00-0.06 H code = 0044436572) LYMPH x10^3 (test code 1.31 10*3/uL 1.09-3.23 = 731-0) MONO x10^3 (test code 0.63 10*3/uL 0.36-1.02 = 742-7) EOS x10^3 (test code = 0.48 10*3/uL 0.06-0.53 711-2) BASO x10^3 (test code 0.06 10*3/uL 0.01-0.09 = 704-7) Lab Interpretation Abnormal (test code = 77239-3) [facility] METABOLIC [id number] 21:42:00 Test Item Value Reference Range Interpretation [...] 9.6 mg/dL 8.0-10.5 N CA) HEPATIC FUNCTION [id number] 21:42:00 Test Item Value Reference Range Interpretation [...] 114 IUnit/L 20-125 N code = ALKP) [id number] 21:42:00 Test Item Value Reference Range Interpretation Comments LIPASE (test code = LIP) 70 U/L 13-57 H [id number] 21:42:00 Test Item Value Reference Range Interpretation [...] by method. UA RFLX MICR CULT IF [id number] 21:37:00 Test Item Value Reference Range Interpretation [...] NITRITE DIPSTICK (test code = NEGATIVE NEGATIVE CARLOSE NRIQUE) UA LEUKOCYTE ESTERASE DIPSTICK 3+ NEGATIVE A [...] INDWELLING CATH (CEDENO)Cath Status: Under 72 hoursPROTHROMBIN [id number] 21:35:00 Test Item Value Reference Range Interpretation [...] o prevent recurre nt infarct). THROMBOPLASTIN TIME [id number] 21:35:00 Test Item Value Reference Range Interpretation Comments THROMBOPLASTIN TIME 41.7 Seconds 25.0-39.5 H Ther apeutic PARTIAL (test code = Range: 50.4 - 88.3 PTT) Seconds Effective 09/04/2018 CBC W/AUTO [id number] 21:29:00 Test Item Value Reference Range Interpretation [...] = MDIFF) - CT ABD PELVIS W/O [id number] 20:49:00 [facility] JONN MEJIAName: ERNIE VANCE : 1960 Sex: M Name: ERNIE VANCE [facility] Jonn Mejia : 1960 Age/S: 60 / M [address] [place] [address] Bl Unit #: [id number] Loc: JESS [place] [address] Phys: Gisel Eugene 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 Contrast [...] 1 Signed Report (CONTINUED) Name: ERNIE VANCE [facility] Wheeler : 1960 Age/S: 60 / M [address] [place] [address] Unit #: [id number] Loc: [place] [address] Phys: Gisel Eugene Acct: [id number] Dis Date: Status: REG ER PHONE #: [phone] Exam Date: 08/23/20202024 FAX #: [phone] Reason: DIFFUSE ABDOMINAL PAIN EXAMS: CPT CODE: [id number] CT ABD PELVIS W/O CONT 42282 <Continued> Peritoneum/Other: No extraluminal air. No extraluminal [...] Hope DO; Nika Martin MD; Gisel Eugene Technologist:Cassandra Anne RT(R)(CT) CTDI: DLP: Trnscb Date/Time: 08/23/2020 (2048) [email or web address] Orig Print D/T: S: 08/23/2020 (2051) PAGE 2 Signed ReportBASIC METABOLIC [id number] 07:51:00 Test Item Value Reference Range Interpretation [...] Modifi ed MDRD (test code = GFR) formula.[facility] kidney disease is defined as eith er kidney damageor GFR <60 mL/min/1.73 m2 for >3 months. [Automated mess age] The system [employer] generated this result transmitted ref erence range: >=60. Th e reference range was not used to int erpret this result as normal/abnormal . 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 [facility] BASIC METABOLIC [id number] 08:00:00 Test Item Value Reference Range Interpretation [...] 9.9 mg/dL 8.0-10.5 N CA) CBC W/AUTO [id number] 07:08:00 Test Item Value Reference Range Interpretation [...] DIFF REQUIRED (test code NO = MDIFF) [id number] 05:21:00 Test Item Value Reference Range Interpretation Comments GLUBED (test code = 150 MG/DL 70-110 H Performe d 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 [facility] [id number] 21:13:00 Test Item Value Reference Range Interpretation Comments GLUBED (test code = 129 MG/DL 70-110 H Performe d 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 [facility] [id number] 16:48:00 Test Item Value Reference Range Interpretation Comments GLUBED (test code = 116 MG/DL 70-110 H Performe d 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 [facility] [id number] 12:18:00 Test Item Value Reference Range Interpretation Comments GLUBED (test code = 136 MG/DL 70-110 H Performe d 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 [facility] [id number] 12:18:00 Test Item Value Reference Range Interpretation Comments GLUBED (test code = 151 MG/DL 70-110 H Performe d 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 [facility] CBC W/AUTO [id number] 07:32:00 Test Item Value Reference Range Interpretation [...] (test code NO = MDIFF) BASIC METABOLIC [id number] 07:29:00 Test Item Value Reference Range Interpretation [...] code = 9.0 mg/dL 8.0-10.5 N CA) [id number] 05:19:00 Test Item Value Reference Range Interpretation Comments GLUBED (test code = 135 MG/DL 70-110 H Performe d 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 [facility] [id number] 20:31:00 Test Item Value Reference Range Interpretation Comments GLUBED (test code = 189 MG/DL 70-110 H Performe d 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 [facility] [id number] 17:41:00 Test Item Value Reference Range Interpretation Comments GLUBED (test code = 140 MG/DL 70-110 H Performe d 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 [facility] - CTA CHEST FOR [id number] 13:48:00 [facility] JONN BELDENVILLEName: ERNIE VANCE : 1960 Sex: M Name: ERNIE VANCE [facility] Jonn Mejia : 1960 Age/S: 60 / M [address] [place] [address] Blvd Unit #: [id number] Loc: [place] [address] Phys: Gina Gonzalez SUPERVISOR INCISING Acct: [id number] Dis Date: Status: ADM IN PHONE #: [phone] Exam Date: 08/12/2020911 FAX #: [phone] Reason: CP, elevated D-dimer EXAMS: CPT CODE: [id number] [place] [address] P ROCEDURE: CTA CHEST INDICATION: CP, elevated [...] 1 Signed Report (CONTINUED) Name: ERNIE VANCE [facility] : 1960 Age/S: 60 / M [address] [place] [address] Blvd Unit #: [id number] Loc: [place] [address] Phys: Gina Gonzalez NP Acct: [id number] Dis Date: Status: ADM IN PHONE #: [phone] Exam Date: 08/12/2020911 FAX #: [phone] Reason: CP, elevated D-dimer EXAMS: CPT CODE: [id number] [place] [address] <Continued> contrast enhancement. No acute abnormality demonstrated. MUSCULOSKELETAL: Healed median sternotomy. No acute skeletal abnormality. IMPRESSION: 1.Negative for pulmonary embolic disease within limitations noted. 2. Atherosclerosis. 3. Coronary arterial calcifications with prior coronary arterial stents and CABG. 4.Interstitial edema. No consolidation. 5. Small bilateral pleural effusions. SL: [id number] at 1348 Reported and signedby: Christiano Piña M.D. 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 [facility] CBC W/AUTO [id number] 09:17:00 Test Item Value Reference Range Interpretation [...] (test code NO = MDIFF) BASIC METABOLIC [id number] 08:28:00 Test Item Value Reference Range Interpretation [...] code = 8.3 mg/dL 8.0-10.5 N CA) [id number] 08:28:00 Test Item Value Reference Range Interpretation Comments PHOSPHOROUS (test code = PHOS) 3.6 MG/DL 2.5-4.9 N [id number] 08:28:00 Test Item Value Reference Range Interpretation Comments MAGNESIUM (test code = MAG) 1.94 mg/dL 1.80-2.40 N [id number] 07:16:00 Test Item Value Reference Range Interpretation Comments GLUBED (test code = 170 MG/DL 70-110 H Performe d 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 [facility] [id number] 07:16:00 Test Item Value Reference Range Interpretation Comments GLUBED (test code = 137 MG/DL 70-110 H Performe d 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 [facility] [id number] 17:01:00 Test Item Value Reference Range Interpretation Comments GLUBED (test code = 88 MG/DL 70-110 N Performe d 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 [facility] [id number] 16:56:00 Test Item Value Reference Range Interpretation Comments ACT-ISTAT (test code 186 SEC 74-137 H Perform ed by certified = ACTI) 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 [facility] [id number] 15:03:00 Test Item Value Reference Range Interpretation Comments ACT-ISTAT (test code 235 SEC 74-137 H Perform ed by certified = ACTI) 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 [facility] [id number] 11:33:00 Test Item Value Reference Range Interpretation Comments GLUBED (test code = 97 MG/DL 70-110 N Performe d 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 [facility] [id number] 06:54:00 Test Item Value Reference Range Interpretation Comments GLUBED (test code = 136 MG/DL 70-110 H Performe d 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 [facility] BASIC METABOLIC [id number] 06:00:00 Test Item Value Reference Range Interpretation [...] COMMENTS: To be done morning of Heart [id number] 06:00:00 Test Item Value Reference Range Interpretation Comments PHOSPHOROUS (test code = PHOS) 4.1 MG/DL 2.5-4.9 N COMMENTS: To be done morning of Heart [id number] 06:00:00 Test Item Value Reference Range Interpretation Comments MAGNESIUM (test code = MAG) 1.74 mg/dL 1.80-2.40 L COMMENTS: To be done morning of Heart CathTHROMBOPLASTIN TIME [id number] 05:55:00 Test Item Value Reference Range Interpretation Comments THROMBOPLASTIN TIME 37.9 Seconds 25.0-39.5 N Ther apeutic PARTIAL (test code = Range: 50.4 - 88.3 PTT) Seconds Effective 09/04/2018 CBC W/AUTO [id number] 05:44:00 Test Item Value Reference Range Interpretation [...] COMMENTS: To be done morning of Heart [id number] 05:44:00 Test Item Value Reference Range Interpretation Comments GLUBED (test code = 92 MG/DL 70-110 N Performe d 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 [facility] [id number] 17:22:00 Test Item Value Reference Range Interpretation Comments HGBA1C% (test code = HGBA1C%) 6.6 %A1C 4.8-6.0 H [id number] 17:17:00 Test Item Value Reference Range Interpretation Comments GLUBED (test code = 118 MG/DL 70-110 H Performe 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 COVID 19 Asymptomatic IH [id number] 11:35:00 Test Item Value Reference Range Interpretation [...] y tests. COMMENTS: If not done this [id number] 11:31:00 Test Item Value Reference Range Interpretation [...] titative results may babak y by method. [id number] 11:28:00 Test Item Value Reference Range Interpretation Comments D-DIMER (test 1089 ng/mlFEU See_Comment HH Critical resu lt called to code = Rima GERMAN) Nean.LAB.JJ1 at 04 1808/10/20Nurse r ead back result [...] to interpret this result as normal/abnormal . 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80 mg/dL 1.80-2.40 N [id number] 08:11:00 Test Item Value Reference Range Interpretation [...] may babak y by method. BASIC METABOLIC [id number] 08:09:00 Test Item Value Reference Range Interpretation [...] code = CA) mg/dL 8.0-10.5 HEPATIC FUNCTION [id number] 08:09:00 Test Item Value Reference Range Interpretation Comments TOTAL PROTEIN (test code = PROT) g/dL 6.4-8.2 ALBUMIN (test code = ALB) g/dL 3.4-5.0 BILIRUBIN TOTAL (test code = BILT) mg/dL 0.0-1.0 BILIRUBIN DIRECT (test code = BILD) MG/DL 0.0-0.30 SGOT/AST (test code = AST) IUnit/L 15-37 SGPT/ALT (test code = ALT) IUnit/L 30-65 ALKALINE PHOSPHATASE TOTAL (test IUnit/L 20-125 code = ALKP) [id number] 08:09:00 Test Item Value Reference Range Interpretation Comments MAGNESIUM (test code = MAG) mg/dL 1.80-2.40 [id number] 08:09:00 Test Item Value Reference Range Interpretation [...] results may babak y by method. PROTHROMBIN [id number] 08:06:00 Test Item Value Reference Range Interpretation [...] o prevent recurre nt infarct). THROMBOPLASTIN TIME [id number] 08:06:00 Test Item Value Reference Range Interpretation Comments THROMBOPLASTIN TIME 44.5 Seconds 25.0-39.5 H Ther apeutic PARTIAL (test code = Range: 50.4 - 88.3 PTT) Seconds Effective 09/04/2018 CBC W/AUTO [id number] 07:58:00 Test Item Value Reference Range Interpretation [...] NO = MDIFF) - XR CHEST 1 [id number] 07:57:00 [facility] 1960 Sex: M FAX: Todd Jacobo MD [phone] [place]: St: [facility] FAX: Martínez Dash SUPERVISOR INCISING [phone] Name: RAJIVERNIE [facility] : 1960 Age/S: 60/M [address] [place] [address] Unit #: [id number] Loc: [place] [address] Phys: Martínez Dash NP Acct: [id number] Dis Date: Status: REG ER PHONE #: [phone] Exam Date: 08/10/2020752 FAX #: [phone] Reason: Chest Pain EXAMS: CPT CODE: [id number] XR CHEST 1 V 91255 Chest single view 08/10/2020 HISTORY: Chest pain. Comparison is made to 05/21/2018 FINDINGS: Pacemaker and midline sternotomy wires are stable. The lungs are hypoinflated. No consolidation or pleural effusion is present. No vascular congestion or interstitial edema is present. Heart size is mildly enlarged. Aorta is unchanged. IMPRESSION: Hypoinflated lungs. No acute cardiopulmonary process. SL:[id number] at 0757 Reported and signed by: Arleth Kruse M.D. CC: Todd Jacobo MD; Martínez Dash NP Technologist: RT Ann(R) Trnscrd Date/Time/By: 08/10/2020 (075) : By: [email or web address] Orig Print D/T: S: 08/10/2020 (0800) PAGE 1 Signed ReportaPTT (for use with Heparin Drip) 2020-08-06 19:40:44 Test Item Value Reference Range Interpretation Comments APTT Patient (test code See_Comment HH [Au tomated message] = 3173-2) The system [employer] generated this result transmitted ref erence range: 26 - 36 Seconds. The reference range was not used to int erpret this result as normal/abnormal . Lab Interpretation (test Abnormal code = 16958-6) [facility]2020-08-06 14:27:45 Test Item Value Reference Range Interpretation Comments POCT GLU (test code = 1303443948) 104 mg/dL 70-110 Lab Interpretation (test code = Normal 48307-7) [facility] METABOLIC PANEL (NA, K, CL, CO2, GLUCOSE, BUN, CREATININE, CA)2020-08-06 11:09:24 Test Item Value Reference Range Interpretation Comments NA (test code = 131 mmol/L 135-145 L 7306502715) K (test code = 3.9 mmol/L 3.5-5.0 8899595424) CL (test code = 96 mmol/L 98-108 L 9461187907) CO2 TOTAL (test code = 27 mmol/L 23-31 1524202705) AGAP (test code = 2-16 6170803545) BUN (test code = 15 mg/dL 7-23 4366458550) GLUCOSE (test code = 104 mg/dL 70-110 9133644586) CREATININE (test code = 0.93 mg/dL 0.60-1.25 2182554050) CALCIUM (test code = 8.4 mg/dL 8.6-10.6 L 1148985023) eGFR Calculation mL/min/1.73m2 (Non-) (test code = 5985929208) eGFR Calculation mL/min/1.73m2 () (test code = 0418347868) DIANE (test code = DIANE) Association of [...] tests). Lab Interpretation Abnormal (test code = 25461-7) [facility] WITH [id number] 10:46:44 Test Item Value Reference Range Interpretation [...] (test code = 54.1 fL 38.5-51.6 H 07449-8) RDW-CV (test code = 17.3 % 12.1-15.4 H 788-0) PLT (test code = See_Comment [Automated 777-3) message] The sy stem which generated this result transmitted reference range : 150 - 328 10*3/ ?L. The reference r batsheva was not used to interpret this result as normal/abnormal . MPV (test code = 9.7 fL 9.8-13.0 L 71239-7) NRBC/100 WBC (test See_Comment [Automat ed code = 9710255744) message] The system which generated this result transmitted reference range : 0.0 - 10.0 /100 WBCs. The refer ence range was not u sed to interpret th is result as normal/abnormal . NRBC x10^3 (test code <0.01 See_Comment [Auto mated = 7710479416) message] The s [employer] which generated this result transmitted reference range : 10*3/?L. The reference range was not used to interpret this result as normal/abnormal . GRAN MAT (NEUT) % 71.6 % (test code = 770-8) IMM GRAN % (test code 0.60 % = 5999904200) LYMPH % (test code = 13.3 % 736-9) MONO % (test code = 11.0 % 5905-5) EOS % (test code = 3.1 % 713-8) BASO % (test code = 0.4 % 706-2) GRAN MAT x10^3(ANC) 5.59 10*3/uL 1.99-6.95 (test code = 3475637342) IMM GRAN x10^3 (test 0.05 10*3/uL 0.00-0.06 code = 3870284962) LYMPH x10^3 (test code 1.04 10*3/uL 1.09-3.23 L = 731-0) MONO x10^3 (test code 0.86 10*3/uL 0.36-1.02 = 742-7) EOS x10^3 (test code = 0.24 10*3/uL 0.06-0.53 711-2) BASO x10^3 (test code 0.03 10*3/uL 0.01-0.09 = 704-7) Lab Interpretation Abnormal (test code = 54916-7) [facility] use with Heparin Drip)2020-08-06 03:15:26 Test Item Value Reference Range Interpretation Comments APTT Patient (test code See_Comment H [Au tomated message] = 3173-2) The system [employer] generated this result transmitted ref erence range: 26 - 36 Seconds. The reference range was not used to int erpret this result as normal/abnormal . Lab Interpretation (test Abnormal code = 14471-6) [facility] GLUCOSE (AUTOMATED)2020-08-06 02:27:22 Test Item Value Reference Range Interpretation Comments POCT GLU (test code = 6859901773) 136 mg/dL 70-110 H Lab Interpretation (test code = Abnormal 89503-5) [facility] GLUCOSE (AUTOMATED)2020-08-05 23:26:03 Test Item Value Reference Range Interpretation Comments POCT GLU (test code = 9791073112) 146 mg/dL 70-110 H Lab Interpretation (test code = Abnormal 58115-3) [facility]for use with Heparin Drip)2020-08-05 19:15:55 Test Item Value Reference Range Interpretation Comments APTT Patient (test code See_Comment H [Au tomated message] = 3173-2) The system [employer] generated this result transmitted ref erence range: 26 - 36 Seconds. The reference range was not used to int erpret this result as normal/abnormal . Lab Interpretation (test Abnormal code = 63903-1) [facility] MET[facility]OLIC [facility] (NA, K, CL, CO2, GLUCOSE, BUN, CREATININE, CA)2020-08-05 05:43:08 Test Item Value Reference Range Interpretation Comments NA (test code = 134 mmol/L 135-145 L 2874872680) K (test code = 3.9 mmol/L 3.5-5.0 5530389568) CL (test code = 97 mmol/L 98-108 L 3506992207) CO2 TOTAL (test code = 28 mmol/L 23-31 5653993936) AGAP (test code = 2-16 0468752199) BUN (test code = 15 mg/dL 7-23 1429773748) GLUCOSE (test code = 148 mg/dL 70-110 H 9299171160) CREATININE (test code = 1.06 mg/dL 0.60-1.25 3584481693) CALCIUM (test code = 8.5 mg/dL 8.6-10.6 L 4429675706) eGFR Calculation mL/min/1.73m2 (Non-) (test code = 1076959748) eGFR Calculation mL/min/1.73m2 () (test code = 6671367692) DIANE (test code = DIANE) Association of [...] tests). Lab Interpretation Abnormal (test code = 05759-3) [facility]21-[facility]-17 05:43:08 Test Item Value Reference Range Interpretation Comments MAGNESIUM (test code = 2679853739) 2.0 mg/dL 1.7-2.4 Lab Interpretation (test code = Normal 91491-0) [facility] (for use with Heparin Drip)2020-08-05 05:31:27 Test Item Value Reference Range Interpretation Comments APTT Patient (test code See_Comment H [Au tomated message] = 6493-2) The system [employer] h generated this result transmitted ref erence range: 26 - 36 Seconds. The reference range was not used to int erpret this result as normal/abnormal . Lab Interpretation (test Abnormal code = 25783-2) [facility] WITH [id number] 05:24:44 Test Item Value Reference Range Interpretation Comments WBC (test code = See_Comment [Automated 9890-2) message] The sy stem which generated this [...] (test code = 54.1 fL 38.5-51.6 H 66171-5) RDW-CV (test code = 17.4 % 12.1-15.4 H 788-0) PLT (test code = See_Comment [Automated 777-3) message] The sy stem which generated this result transmitted reference range : 150 - 328 10*3/ ?L. The reference r batsheva was not used to interpret this result as normal/abnormal . MPV (test code = 9.6 fL 9.8-13.0 L 83944-1) NRBC/100 WBC (test See_Comment [Automat ed code = 7693496280) message] The system which generated this result transmitted reference range : 0.0 - 10.0 /100 WBCs. The refer ence range was not u sed to interpret th is result as normal/abnormal . NRBC x10^3 (test code <0.01 See_Comment [Auto mated = 6920754478) message] The s ystem which generated this result transmitted reference range : 10*3/?L. The reference range was not used to interpret this result as normal/abnormal . GRAN MAT (NEUT) % 70.3 % (test code = 770-8) IMM GRAN % (test code 0.60 % = 3727923897) LYMPH % (test code = 14.6 % 736-9) MONO % (test code = 12.5 % 5905-5) EOS % (test code = 1.7 % 713-8) BASO % (test code = 0.3 % 706-2) GRAN MAT x10^3(ANC) 6.11 10*3/uL 1.99-6.95 (test code = 1284676802) IMM GRAN x10^3 (test 0.05 10*3/uL 0.00-0.06 code = 7383244649) LYMPH x10^3 (test code 1.27 10*3/uL 1.09-3.23 = 731-0) MONO x10^3 (test code 1.09 10*3/uL 0.36-1.02 H = 742-7) EOS x10^3 (test code = 0.15 10*3/uL 0.06-0.53 711-2) BASO x10^3 (test code 0.03 10*3/uL 0.01-0.09 = 704-7) Lab Interpretation Abnormal (test code = 36277-6) [facility] GLUCOSE (AUTOMATED)2020-08-05 01:58:45 Test Item Value Reference Range Interpretation Comments POCT GLU (test code = 1741765827) 186 mg/dL 70-110 H Lab Interpretation (test code = Abnormal 91413-6) [facility]2020-08-04 17:16:48 Test Item Value Reference Range Interpretation Comments APTT Patient (test code See_Comment H [Au tomated message] = 3173-2) The system [employer] generated this result transmitted ref erence range: 26 - 36 Seconds. The reference range was not used to int erpret this result as normal/abnormal . Lab Interpretation (test Abnormal code = 39968-8) [facility] GLUCOSE (AUTOMATED)2020-08-04 14:09:13 Test Item Value Reference Range Interpretation Comments POCT GLU (test code = 4379720155) 133 mg/dL 70-110 H Lab Interpretation (test code = Abnormal 66442-3) [facility] METABOLIC PANEL (NA, K, CL, CO2, GLUCOSE, BUN, CREATININE, CA)2020-08-04 10:34:01 Test Item Value Reference Range Interpretation Comments NA (test code = 135 mmol/L 135-145 6499398045) K (test code = 3.7 mmol/L 3.5-5.0 2469637513) CL (test code = 100 mmol/L 98-108 7775846500) CO2 TOTAL (test code = 30 mmol/L 23-31 3271743303) AGAP (test code = 2-16 9146056714) BUN (test code = 15 mg/dL 7-23 7489037786) GLUCOSE (test code = 119 mg/dL 70-110 H 7953243553) CREATININE (test code = 1.01 mg/dL 0.60-1.25 9560759164) CALCIUM (test code = 8.0 mg/dL 8.6-10.6 L 7109569531) eGFR Calculation mL/min/1.73m2 (Non-) (test code = 4091231291) eGFR Calculation mL/min/1.73m2 () (test code = 9509144226) DIANE (test code = DIANE) Association of [...] tests). Lab Interpretation Abnormal (test code = 95790-3) [facility] WITH [id number] 10:05:37 Test Item Value Reference Range Interpretation [...] (test code = 54.7 fL 38.5-51.6 H 77526-7) RDW-CV (test code = 17.3 % 12.1-15.4 H 788-0) PLT (test code = See_Comment H [Automated 777-3) message] The sy stem which generated this result transmitted reference range : 150 - 328 10*3/ ?L. The reference r batsheva was not used to interpret this result as normal/abnormal . MPV (test code = 9.8 fL 9.8-13.0 06820-6) NRBC/100 WBC (test See_Comment [Automat ed code = 2772778054) message] The system which generated this result transmitted reference range : 0.0 - 10.0 /100 WBCs. The refer ence range was not u sed to interpret th is result as normal/abnormal . NRBC x10^3 (test code <0.01 See_Comment [Auto mated = 2984448499) message] The s ystem which generated this result transmitted reference range : 10*3/?L. The reference range was not used to interpret this result as normal/abnormal . GRAN MAT (NEUT) % 77.8 % (test code = 770-8) IMM GRAN % (test code 0.20 % = 7558968133) LYMPH % (test code = 11.0 % 736-9) MONO % (test code = 9.9 % 5905-5) EOS % (test code = 0.8 % 713-8) BASO % (test code = 0.3 % 706-2) GRAN MAT x10^3(ANC) 6.90 10*3/uL 1.99-6.95 (test code = 2608934445) IMM GRAN x10^3 (test <0.03 0.00-0.06 code = 1787985084) LYMPH x10^3 (test code 0.98 10*3/uL 1.09-3.23 L = 731-0) MONO x10^3 (test code 0.88 10*3/uL 0.36-1.02 = 742-7) EOS x10^3 (test code = 0.07 10*3/uL 0.06-0.53 711-2) BASO x10^3 (test code 0.03 10*3/uL 0.01-0.09 = 704-7) Lab Interpretation Abnormal (test code = 99730-9) [facility] GLUCOSE (AUTOMATED)2020-08-04 03:54:53 Test Item Value Reference Range Interpretation Comments POCT GLU (test code = 0601724525) 187 mg/dL 70-110 H Lab Interpretation (test code = Abnormal 40896-6) [facility] Drip[facility]2020-08-04 02:12:07 Test Item Value Reference Range Interpretation Comments APTT Patient (test code See_Comment H [Au tomated message] = 4123-2) The system [employer] generated this result transmitted ref erence range: 26 - 36 Seconds. The reference range was not used to int erpret this result as normal/abnormal . Lab Interpretation (test Abnormal code = 16877-7) [facility] GLUCOSE (AUTOMATED)2020-08-03 22:18:17 Test Item Value Reference Range Interpretation Comments POCT GLU (test code = 3810061794) 125 mg/dL 70-110 H Lab Interpretation (test code = Abnormal 37259-1) [facility]2020-08-03 18:00:55 Test Item Value Reference Range Interpretation Comments POCT GLU (test code = 8235137765) 119 mg/dL 70-110 H Lab Interpretation (test code = Abnormal 58043-4) [facility] Screen - ONCE [id number] 14:31:37 Test Item Value Reference Range Interpretation Comments ABO & RH (test code O POSITIVE Performe d at [facility] = 20) Laboratory Serv [facility] [address]Y[place] Free: [phone] A No. [id number] IAT (test code = Negative Performed a t [facility] 1185) Laboratory Serv [facility] s [address]Nbke Free: [phone] A No. [id number] [facility] (NA, K, CL, CO2, GLUCOSE, BUN, CREATININE, CA)2020-08-03 08:05:46 Test Item Value Reference Range Interpretation Comments NA (test code = 136 mmol/L 135-145 7963908858) K (test code = 3.7 mmol/L 3.5-5.0 5095102933) CL (test code = 100 mmol/L 98-108 1099809404) CO2 TOTAL (test code = 30 mmol/L 23-31 5249526832) AGAP (test code = 2-16 3724187410) BUN (test code = 16 mg/dL 7-23 5482671779) GLUCOSE (test code = 101 mg/dL 70-110 3357059224) CREATININE (test code = 1.07 mg/dL 0.60-1.25 2973507458) CALCIUM (test code = 8.2 mg/dL 8.6-10.6 L 7457973061) eGFR Calculation mL/min/1.73m2 (Non-) (test code = 4912943272) eGFR Calculation mL/min/1.73m2 () (test code = 8207621227) DIANE (test code = DIANE) Association of [...] tests). Lab Interpretation Abnormal (test code = 03786-0) [facility] use with Heparin Drip[facility]2020-08-03 07:48:47 Test Item Value Reference Range Interpretation Comments APTT Patient (test code See_Comment H [Au tomated message] = 9123-2) The system [employer] generated this result transmitted ref erence range: 26 - 36 Seconds. The reference range was not used to int erpret this result as normal/abnormal . Lab Interpretation (test Abnormal code = 82746-3) [facility] WITH [id number] 07:41:45 Test Item Value Reference Range Interpretation [...] (test code = 56.3 fL 38.5-51.6 H 44378-2) RDW-CV (test code = 17.4 % 12.1-15.4 H 788-0) PLT (test code = See_Comment [Automated 777-3) message] The sy stem which generated this result transmitted reference range : 150 - 328 10*3/ ?L. The reference r batsheva was not used to interpret this result as normal/abnormal . MPV (test code = 9.3 fL 9.8-13.0 L 41074-9) NRBC/100 WBC (test See_Comment [Automat ed code = 9175298135) message] The system which generated this result transmitted reference range : 0.0 - 10.0 /100 WBCs. The refer ence range was not u sed to interpret th is result as normal/abnormal . NRBC x10^3 (test code <0.01 See_Comment [Auto mated = 2946292812) message] The s ystem which generated this result transmitted reference range : 10*3/?L. The reference range was not used to interpret this result as normal/abnormal . GRAN MAT (NEUT) % 64.1 % (test code = 770-8) IMM GRAN % (test code 0.40 % = 8428414285) LYMPH % (test code = 19.4 % 736-9) MONO % (test code = 10.7 % 5905-5) EOS % (test code = 4.9 % 713-8) BASO % (test code = 0.5 % 706-2) GRAN MAT x10^3(ANC) 4.74 10*3/uL 1.99-6.95 (test code = 8114555876) IMM GRAN x10^3 (test 0.03 10*3/uL 0.00-0.06 code = 9593472804) LYMPH x10^3 (test code 1.43 10*3/uL 1.09-3.23 = 731-0) MONO x10^3 (test code 0.79 10*3/uL 0.36-1.02 = 742-7) EOS x10^3 (test code = 0.36 10*3/uL 0.06-0.53 711-2) BASO x10^3 (test code 0.04 10*3/uL 0.01-0.09 = 704-7) Lab Interpretation Abnormal (test code = 02938-5) [facility] GLUCOSE (AUTOMATED)2020-08-03 02:33:23 Test Item Value Reference Range Interpretation Comments POCT GLU (test code = 5834596391) 184 mg/dL 70-110 H Lab Interpretation (test code = Abnormal 83913-9) [facility] GLUCOSE (AUTOMATED)2020-08-02 23:07:40 Test Item Value Reference Range Interpretation Comments POCT GLU (test code = 4803231119) 126 mg/dL 70-110 H Lab Interpretation (test code = Abnormal 28751-0) [facility] (ID NOW RAPID TESTING)2020-08-02 21:12:04 Test Item Value Reference Range Interpretation Comments SARS-CoV-2 Rapid ID NOW Not Detected Not Detected (test code = 73765-9) DIANE (test code = DIANE) ID NOW COVID-19 Assay is an isothermal nucleic acid amplification test intended for the qualitative detection of nucleic acid from SARS-CoV-2 viral RNA in nasopharyngeal ([employer]PERVISOR [employer]ISING) specimens. It is used under Emergency Use [...] indicated. Lab Interpretation Normal (test code = 56044-5) [facility]for use with Heparin Drip[facility]2020-08-02 19:14:29 Test Item Value Reference Range Interpretation Comments APTT Patient (test code See_Comment H [Au tomated message] = 3173-2) The system [employer] generated this result transmitted ref erence range: 26 - 36 Seconds. The reference range was not used to int erpret this result as normal/abnormal . Lab Interpretation (test Abnormal code = 85213-1) [facility] GLUCOSE (AUTOMATED)2020-08-02 18:40:15 Test Item Value Reference Range Interpretation Comments POCT GLU (test code = 8406153966) 131 mg/dL 70-110 H Lab Interpretation (test code = Abnormal 23272-0) [facility] GLUCOSE (AUTOMATED)2020-08-02 13:57:10 Test Item Value Reference Range Interpretation Comments POCT GLU (test code = 4893316163) 80 mg/dL 70-110 Lab Interpretation (test code = Normal 26335-4) [facility] METABOLIC PANEL (NA, K, CL, CO2, GLUCOSE, BUN, CREATININE, CA)2020-08-02 12:02:41 Test Item Value Reference Range Interpretation Comments NA (test code = 136 mmol/L 135-145 9944658463) K (test code = 3.8 mmol/L 3.5-5.0 5644331656) CL (test code = 98 mmol/L 98-108 1429150891) CO2 TOTAL (test code = 32 mmol/L 23-31 H 8071507309) AGAP (test code = 2-16 6257806691) BUN (test code = 17 mg/dL 7-23 0622209801) GLUCOSE (test code = 63 mg/dL 70-110 L 7342237009) CREATININE (test code = 1.15 mg/dL 0.60-1.25 6031874605) CALCIUM (test code = 8.4 mg/dL 8.6-10.6 L 5459862003) eGFR Calculation mL/min/1.73m2 (Non-) (test code = 5468603431) eGFR Calculation mL/min/1.73m2 () (test code = 7524396554) DIANE (test code = DIANE) Association of [...] tests). Lab Interpretation Abnormal (test code = 05611-4) [facility] use with Heparin Drip[facility]2020-08-02 11:57:00 Test Item Value Reference Range Interpretation Comments APTT Patient (test code See_Comment H [Au tomated message] = 3173-2) The system [employer] generated this result transmitted ref erence range: 26 - 36 Seconds. The reference range was not used to int erpret this result as normal/abnormal . Lab Interpretation (test Abnormal code = 79166-2) [facility] WITH [id number] 11:39:22 Test Item Value Reference Range Interpretation [...] (test code = 55.2 fL 38.5-51.6 H 79842-8) RDW-CV (test code = 17.5 % 12.1-15.4 H 788-0) PLT (test code = See_Comment H [Automated 777-3) message] The sy stem which generated this result transmitted reference range : 150 - 328 10*3/ ?L. The reference r batsheva was not used to interpret this result as normal/abnormal . MPV (test code = 10.0 fL 9.8-13.0 76339-3) NRBC/100 WBC (test See_Comment [Automat ed code = 3864641249) message] The system which generated this result transmitted reference range : 0.0 - 10.0 /100 WBCs. The refer ence range was not u sed to interpret th is result as normal/abnormal . NRBC x10^3 (test code <0.01 See_Comment [Auto mated = 3854307114) message] The s ystem which generated this result transmitted reference range : 10*3/?L. The reference range was not used to interpret this result as normal/abnormal . GRAN MAT (NEUT) % 62.8 % (test code = 770-8) IMM GRAN % (test code 0.10 % = 4607557261) LYMPH % (test code = 20.7 % 736-9) MONO % (test code = 10.6 % 5905-5) EOS % (test code = 5.4 % 713-8) BASO % (test code = 0.4 % 706-2) GRAN MAT x10^3(ANC) 4.98 10*3/uL 1.99-6.95 (test code = 7996977231) IMM GRAN x10^3 (test <0.03 0.00-0.06 code = 5730590199) LYMPH x10^3 (test code 1.64 10*3/uL 1.09-3.23 = 731-0) MONO x10^3 (test code 0.84 10*3/uL 0.36-1.02 = 742-7) EOS x10^3 (test code = 0.43 10*3/uL 0.06-0.53 711-2) BASO x10^3 (test code 0.03 10*3/uL 0.01-0.09 = 704-7) Lab Interpretation Abnormal (test code = 34450-3) [facility] (for use with Heparin Drip)2020-08-02 06:27:34 Test Item Value Reference Range Interpretation Comments APTT Patient (test code See_Comment H [Au tomated message] = 3173-2) The system [employer] generated this result transmitted ref erence range: 26 - 36 Seconds. The reference range was not used to int erpret this result as normal/abnormal . Lab Interpretation (test Abnormal code = 31276-9) [facility] GLUCOSE (AUTOMATED)2020-08-02 01:46:02 Test Item Value Reference Range Interpretation Comments POCT GLU (test code = 3318978467) 227 mg/dL 70-110 H Lab Interpretation (test code = Abnormal 20307-2) [facility] (for use with Heparin Drip)2020-08-01 20:50:05 Test Item Value Reference Range Interpretation Comments APTT Patient (test code See_Comment H [Au tomated message] = 3173-2) The system [employer] generated this result transmitted ref erence range: 26 - 36 Seconds. The reference range was not used to int erpret this result as normal/abnormal . Lab Interpretation (test Abnormal code = 04019-5) [facility]2020-08-01 14:54:14 Test Item Value Reference Range Interpretation Comments POCT GLU (test code = 5222223510) 96 mg/dL 70-110 Lab Interpretation (test code = Normal 83466-6) [facility] use with Heparin Drip[facility]2020-08-01 11:28:39 Test Item Value Reference Range Interpretation Comments APTT Patient (test code >150 See_Comment HH [Au tomated message] = 3173-2) The system [employer] generated this result transmitted ref erence range: 26 - 36 Seconds. The reference range was not used to int erpret this result as normal/abnormal . Lab Interpretation (test Abnormal code = 25015-6) [facility] METABOLIC PANEL (NA, K, CL, CO2, GLUCOSE, BUN, CREATININE, CA)2020-08-01 11:11:41 Test Item Value Reference Range Interpretation Comments NA (test code = 137 mmol/L 135-145 9244604991) K (test code = 3.7 mmol/L 3.5-5.0 8393378588) CL (test code = 100 mmol/L 98-108 3679674892) CO2 TOTAL (test code = 30 mmol/L 23-31 8285967034) AGAP (test code = 2-16 1381849000) BUN (test code = 17 mg/dL 7-23 8857926923) GLUCOSE (test code = 96 mg/dL 70-110 5664694546) CREATININE (test code = 1.09 mg/dL 0.60-1.25 0742645962) CALCIUM (test code = 8.0 mg/dL 8.6-10.6 L 8581856200) eGFR Calculation mL/min/1.73m2 (Non-) (test code = 2616711666) eGFR Calculation mL/min/1.73m2 () (test code = 9119883017) DIANE (test code = DIANE) Association of [...] tests). Lab Interpretation Abnormal (test code = 22124-3) [facility] WITH [id number] 11:04:41 Test Item Value Reference Range Interpretation Comments WBC (test code = See_Comment [Automated 7716-2) message] The sy stem which generated this result transmitted reference range : 4.20 - 10.70 10*3/?L. The reference range was not used to interpret this result as normal/abnormal . RBC (test code = See_Comment L [Automated 116-8) message] The sy stem which generated this [...] (test code = 54.6 fL 38.5-51.6 H 13206-8) RDW-CV (test code = 17.3 % 12.1-15.4 H 788-0) PLT (test code = See_Comment H [Automated 777-3) message] The sy stem which generated this result transmitted reference range : 150 - 328 10*3/ ?L. The reference r batsheva was not used to interpret this result as normal/abnormal . MPV (test code = 10.0 fL 9.8-13.0 35449-2) NRBC/100 WBC (test See_Comment [Automat ed code = 5282830748) message] The system which generated this result transmitted reference range : 0.0 - 10.0 /100 WBCs. The refer ence range was not u sed to interpret th is result as normal/abnormal . NRBC x10^3 (test code <0.01 See_Comment [Auto mated = 6102540927) message] The s ystem which generated this result transmitted reference range : 10*3/?L. The reference range was not used to interpret this result as normal/abnormal . GRAN MAT (NEUT) % 61.0 % (test code = 770-8) IMM GRAN % (test code 0.30 % = 4230603688) LYMPH % (test code = 21.7 % 736-9) MONO % (test code = 9.9 % 5905-5) EOS % (test code = 6.3 % 713-8) BASO % (test code = 0.8 % 706-2) GRAN MAT x10^3(ANC) 4.64 10*3/uL 1.99-6.95 (test code = 2497940778) IMM GRAN x10^3 (test <0.03 0.00-0.06 code = 2100996356) LYMPH x10^3 (test code 1.65 10*3/uL 1.09-3.23 = 731-0) MONO x10^3 (test code 0.75 10*3/uL 0.36-1.02 = 742-7) EOS x10^3 (test code = 0.48 10*3/uL 0.06-0.53 711-2) BASO x10^3 (test code 0.06 10*3/uL 0.01-0.09 = 704-7) Lab Interpretation Abnormal (test code = 29617-2) [facility] GLUCOSE (AUTOMATED)2020-08-01 02:29:39 Test Item Value Reference Range Interpretation Comments POCT GLU (test code = 7057781076) 111 mg/dL 70-110 H Lab Interpretation (test code = Abnormal 85284-7) [facility] use with Heparin Drip[facility]2020-07-31 23:24:55 Test Item Value Reference Range Interpretation Comments APTT Patient (test code See_Comment H [Au tomated message] = 3173-2) The system [employer] generated this result transmitted ref erence range: 26 - 36 Seconds. The reference range was not used to int erpret this result as normal/abnormal . Lab Interpretation (test Abnormal code = 78172-1) [facility] GLUCOSE (AUTOMATED)2020-07-31 23:15:24 Test Item Value Reference Range Interpretation Comments POCT GLU (test code = 7227602394) 182 mg/dL 70-110 H Lab Interpretation (test code = Abnormal 41881-6) [facility] GLUCOSE (AUTOMATED)2020-07-31 19:13:54 Test Item Value Reference Range Interpretation Comments POCT GLU (test code = 3789569261) 90 mg/dL 70-110 Lab Interpretation (test code = Normal 65576-3) [facility] GLUCOSE (AUTOMATED)2020-07-31 14:14:20 Test Item Value Reference Range Interpretation Comments POCT GLU (test code = 8580613256) 86 mg/dL 70-110 Lab Interpretation (test code = Normal 89572-1) [facility]. METABOLIC PANEL (99786)2020-07-31 13:32:03 Test Item Value Reference Range Interpretation Comments NA (test code = 137 mmol/L 135-145 9300653638) K (test code = 3.5 mmol/L 3.5-5.0 5829182696) CL (test code = 100 mmol/L 98-108 2436503773) CO2 TOTAL (test code = 31 mmol/L 23-31 8089272195) AGAP (test code = 2-16 0276423946) BUN (test code = 16 mg/dL 7-23 8877696118) GLUCOSE (test code = 84 mg/dL 70-110 9197528163) CREATININE (test code = 1.10 mg/dL 0.60-1.25 4461107238) TOTAL BILI (test code = 0.3 mg/dL 0.1-1.3 0887993000) CALCIUM (test code = 8.2 mg/dL 8.6-10.6 L 9155145355) T PROTEIN (test code = 6.6 g/dL 6.3-8.2 2591623590) ALBUMIN (test code = 3.3 g/dL 3.5-5.0 L 7267414113) ALK PHOS (test code = 236 U/L 34-122 H 9274399757) ALTv (test code = 17 U/L 5-50 1742-6) AST(SGOT) (test code = 49 U/L 13-40 H 8612624092) eGFR Calculation mL/min/1.73m2 (Non-) (test code = 1804792048) eGFR Calculation mL/min/1.73m2 () (test code = 9281876971) DIANE (test code = DIANE) Association of [...] tests). Lab Interpretation Abnormal (test code = 21173-0) [facility] use with Heparin Drip[facility]2020-07-31 12:49:19 Test Item Value Reference Range Interpretation Comments APTT Patient (test code See_Comment H [Au tomated message] = 3173-2) The system Need Fixed h generated this result transmitted ref erence range: 26 - 36 Seconds. The reference range was not used to int erpret this result as normal/abnormal . Lab Interpretation (test Abnormal code = 27984-3) [facility]inte[facility]HROMBIN TIME / [id number] 12:49:19 Test Item Value Reference Range Interpretation Comments PROTIME PATIENT (test See_Comment H [Auto mated message] code = 5964-2) The system [employer] generated this result transmitted ref erence range: 10.1 - 1 2.6 Seconds. The reference range was not used to int erpret this result as normal/abnormal . INR (test code = 6301-6) Nor mal INR <1.1; Warfarin Therap eutic range 2.0 to 3. 0 or 2.5 to 3.5, dep ending upon the indica tions. Lab Interpretation (test Abnormal code = 04886-1) [facility] WITH [id number] 12:44:35 Test Item Value Reference Range Interpretation [...] (test code = 52.8 fL 38.5-51.6 H 15876-3) RDW-CV (test code = 17.4 % 12.1-15.4 H 788-0) PLT (test code = See_Comment H [Automated 777-3) message] The sy stem which generated this result transmitted reference range : 150 - 328 10*3/ ?L. The reference r batsheva was not used to interpret this result as normal/abnormal . MPV (test code = 9.1 fL 9.8-13.0 L 86818-2) NRBC/100 WBC (test See_Comment [Automat ed code = 2106705926) message] The system which generated this result transmitted reference range : 0.0 - 10.0 /100 WBCs. The refer ence range was not u sed to interpret th is result as normal/abnormal . NRBC x10^3 (test code <0.01 See_Comment [Auto mated = 4335722495) message] The s ystem which generated this result transmitted reference range : 10*3/?L. The reference range was not used to interpret this result as normal/abnormal . GRAN MAT (NEUT) % 59.6 % (test code = 770-8) IMM GRAN % (test code 0.40 % = 8102174647) LYMPH % (test code = 23.2 % 736-9) MONO % (test code = 9.9 % 5905-5) EOS % (test code = 6.4 % 713-8) BASO % (test code = 0.5 % 706-2) GRAN MAT x10^3(ANC) 4.56 10*3/uL 1.99-6.95 (test code = 9500025116) IMM GRAN x10^3 (test 0.03 10*3/uL 0.00-0.06 code = 4327628087) LYMPH x10^3 (test code 1.78 10*3/uL 1.09-3.23 = 731-0) MONO x10^3 (test code 0.76 10*3/uL 0.36-1.02 = 742-7) EOS x10^3 (test code = 0.49 10*3/uL 0.06-0.53 711-2) BASO x10^3 (test code 0.04 10*3/uL 0.01-0.09 = 704-7) Lab Interpretation Abnormal (test code = 20884-9) [facility] GLUCOSE (AUTOMATED)2020-07-31 02:13:25 Test Item Value Reference Range Interpretation Comments POCT GLU (test code = 9515112364) 175 mg/dL 70-110 H Lab Interpretation (test code = Abnormal 99832-9) [facility] GLUCOSE (AUTOMATED)2020-07-30 22:40:42 Test Item Value Reference Range Interpretation Comments POCT GLU (test code = 2918113036) 130 mg/dL 70-110 H Lab Interpretation (test code = Abnormal 89260-0) [facility] [id number] 20:55:18 Test Item Value Reference Range Interpretation Comments NT-proBNP (test code 3270 pg/mL See_Comment H [Autom ated = 7178288275) message] The system which generated this result transmitted reference range : <=125. The reference range was not used to interpret this result as normal/abnormal . DIANE (test code = DIANE) Biotin has been reported to cause a negative bias, interpret results relative to patient's use of biotin. Lab Interpretation Abnormal (test code = 40194-4) [facility] GLUCOSE (AUTOMATED)2020-07-30 17:53:57 Test Item Value Reference Range Interpretation Comments POCT GLU (test code = 8041922677) 106 mg/dL 70-110 Lab Interpretation (test code = Normal 91750-0) [facility] GLUCOSE (AUTOMATED)2020-07-30 14:12:30 Test Item Value Reference Range Interpretation Comments POCT GLU (test code = 6754756196) 98 mg/dL 70-110 Lab Interpretation (test code = Normal 51019-7) [facility] Basic Metabolic Panel (NA, K, CL, CO2, GLUCOSE, BUN, CREATININE, CA)2020-07-30 12:54:25 Test Item Value Reference Range Interpretation Comments NA (test code = 140 mmol/L 135-145 5714191257) K (test code = 3.5 mmol/L 3.5-5.0 5177249170) CL (test code = 102 mmol/L 98-108 4455315336) CO2 TOTAL (test code = 30 mmol/L 23-31 0487623659) AGAP (test code = 2-16 9116836230) BUN (test code = 13 mg/dL 7-23 2934870186) GLUCOSE (test code = 78 mg/dL 70-110 6190484136) CREATININE (test code = 0.96 mg/dL 0.60-1.25 8202509474) CALCIUM (test code = 8.4 mg/dL 8.6-10.6 L 4181152566) eGFR Calculation mL/min/1.73m2 (Non-) (test code = 3980081248) eGFR Calculation mL/min/1.73m2 () (test code = 3732521551) DIANE (test code = DIANE) Association of [...] tests). Lab Interpretation Abnormal (test code = 72639-1) [facility] CBC with [id number] 12:52:48 Test Item Value Reference Range Interpretation [...] RDW-SD (test code = 50.4 fL 38.5-51.6 66993-6) RDW-CV (test code = 16.7 % 12.1-15.4 H 788-0) PLT (test code = See_Comment H [Automated 777-3) message] The sy stem which generated this result transmitted reference range : 150 - 328 10*3/ ?L. The reference r batsheva was not used to interpret this result as normal/abnormal . MPV (test code = 9.6 fL 9.8-13.0 L 08489-9) NRBC/100 WBC (test See_Comment [Automat ed code = 3872763694) message] The system which generated this result transmitted reference range : 0.0 - 10.0 /100 WBCs. The refer ence range was not u sed to interpret th is result as normal/abnormal . NRBC x10^3 (test code <0.01 See_Comment [Auto mated = 7770279279) message] The s ystem which generated this result transmitted reference range : 10*3/?L. The reference range was not used to interpret this result as normal/abnormal . GRAN MAT (NEUT) % 69.8 % (test code = 770-8) IMM GRAN % (test code 0.40 % = 3038469398) LYMPH % (test code = 16.3 % 736-9) MONO % (test code = 8.4 % 5905-5) EOS % (test code = 4.6 % 713-8) BASO % (test code = 0.5 % 706-2) GRAN MAT x10^3(ANC) 5.62 10*3/uL 1.99-6.95 (test code = 6200345003) IMM GRAN x10^3 (test 0.03 10*3/uL 0.00-0.06 code = 7534837300) LYMPH x10^3 (test code 1.31 10*3/uL 1.09-3.23 = 731-0) MONO x10^3 (test code 0.68 10*3/uL 0.36-1.02 = 742-7) EOS x10^3 (test code = 0.37 10*3/uL 0.06-0.53 711-2) BASO x10^3 (test code 0.04 10*3/uL 0.01-0.09 = 704-7) Lab Interpretation Abnormal (test code = 55428-9) [facility] GLUCOSE (AUTOMATED)2020-07-29 22:41:49 Test Item Value Reference Range Interpretation Comments POCT GLU (test code = 5874114215) 97 mg/dL 70-110 Lab Interpretation (test code = Normal 43127-1) [facility] GLUCOSE (AUTOMATED)2020-07-29 17:34:32 Test Item Value Reference Range Interpretation Comments POCT GLU (test code = 8670343492) 148 mg/dL 70-110 H Lab Interpretation (test code = Abnormal 40851-7) [facility] GLUCOSE (AUTOMATED)2020-07-29 14:03:27 Test Item Value Reference Range Interpretation Comments POCT GLU (test code = 3018073042) 96 mg/dL 70-110 Lab Interpretation (test code = Normal 53821-7) [facility] Basic Metabolic Panel (NA, K, CL, CO2, GLUCOSE, BUN, CREATININE, CA)2020-07-29 11:44:04 Test Item Value Reference Range Interpretation Comments NA (test code = 139 mmol/L 135-145 6503420899) K (test code = 3.8 mmol/L 3.5-5.0 4493028988) CL (test code = 105 mmol/L 98-108 5337446787) CO2 TOTAL (test code = 26 mmol/L 23-31 5443942999) AGAP (test code = 2-16 7000072062) BUN (test code = 14 mg/dL 7-23 3398517878) GLUCOSE (test code = 74 mg/dL 70-110 6864544753) CREATININE (test code = 0.90 mg/dL 0.60-1.25 3225330961) CALCIUM (test code = 8.3 mg/dL 8.6-10.6 L 1909088857) eGFR Calculation mL/min/1.73m2 (Non-) (test code = 9279306152) eGFR Calculation mL/min/1.73m2 () (test code = 7533099177) DIANE (test code = DIANE) Association of [...] tests). Lab Interpretation Abnormal (test code = 28561-8) [facility] CBC with [id number] 10:27:53 Test Item Value Reference Range Interpretation [...] RDW-SD (test code = 48.8 fL 38.5-51.6 05597-2) RDW-CV (test code = 16.6 % 12.1-15.4 H 788-0) PLT (test code = See_Comment H [Automated 777-3) message] The sy stem which generated this result transmitted reference range : 150 - 328 10*3/ ?L. The reference r batsheva was not used to interpret this result as normal/abnormal . MPV (test code = 9.8 fL 9.8-13.0 37033-1) NRBC/100 WBC (test See_Comment [Automat ed code = 8583004863) message] The system which generated this result transmitted reference range : 0.0 - 10.0 /100 WBCs. The refer ence range was not u sed to interpret th is result as normal/abnormal . NRBC x10^3 (test code <0.01 See_Comment [Auto mated = 6667386837) message] The s ystem which generated this result transmitted reference range : 10*3/?L. The reference range was not used to interpret this result as normal/abnormal . GRAN MAT (NEUT) % 73.4 % (test code = 770-8) IMM GRAN % (test code 0.30 % = 6574686504) LYMPH % (test code = 14.8 % 736-9) MONO % (test code = 7.6 % 5905-5) EOS % (test code = 3.5 % 713-8) BASO % (test code = 0.4 % 706-2) GRAN MAT x10^3(ANC) 5.80 10*3/uL 1.99-6.95 (test code = 6341727128) IMM GRAN x10^3 (test <0.03 0.00-0.06 code = 5832545118) LYMPH x10^3 (test code 1.17 10*3/uL 1.09-3.23 = 731-0) MONO x10^3 (test code 0.60 10*3/uL 0.36-1.02 = 742-7) EOS x10^3 (test code = 0.28 10*3/uL 0.06-0.53 711-2) BASO x10^3 (test code 0.03 10*3/uL 0.01-0.09 = 704-7) Lab Interpretation Abnormal (test code = 23637-4) [facility] [id number] 03:40:47COVID DMT InterpretationInterpretation/Recommendations: Molecular NAAT Tests for [...] COVID-19 testing the patient has had at [facility], including molecular NAAT testing (more commonly known as PCR testing and Rapid ID Now testing) and antibody testing. It does not take into account any testing that a patient has had outside of the [facility] medical record. [facility] LABORATORY SERVICESCOVID Resu fzbYTSK-AxM-[id number] Rapid ID NOW (no units) ? ? [...] ? ? 09/17/2019 ? Not Detected ? [facility] GLUCOSE (AUTOMATED)2020-07-29 02:28:01 Test Item Value Reference Range Interpretation Comments POCT GLU (test code = 7461042269) 94 mg/dL 70-110 Lab Interpretation (test code = Normal 06132-6) [facility] GLUCOSE (AUTOMATED)2020-07-28 22:47:00 Test Item Value Reference Range Interpretation Comments POCT GLU (test code = 0801431060) 96 mg/dL 70-110 Lab Interpretation (test code = Normal 54881-1) [facility] GLUCOSE (AUTOMATED)2020-07-28 18:15:16 Test Item Value Reference Range Interpretation Comments POCT GLU (test code = 3823465635) 126 mg/dL 70-110 H Lab Interpretation (test code = Abnormal 09144-3) [facility] [id number] 15:30:53 Test Item Value Reference Range Interpretation Comments TROPONIN I (test 0.027 ng/mL See_Comment [Automated code = 1197166812) message] The system which generated this result [...] ? Lab Interpretation Normal (test code = 97310-5) [facility] Basic Metabolic Panel (NA, K, CL, CO2, GLUCOSE, BUN, CREATININE, CA)2020-07-28 15:10:53 Test Item Value Reference Range Interpretation Comments NA (test code = 141 mmol/L 135-145 3616798877) K (test code = 3.6 mmol/L 3.5-5.0 6852126652) CL (test code = 107 mmol/L 98-108 5557873026) CO2 TOTAL (test code = 25 mmol/L 23-31 6968430743) AGAP (test code = 2-16 2637978575) BUN (test code = 14 mg/dL 7-23 6803673734) GLUCOSE (test code = 170 mg/dL 70-110 H 0524916257) CREATININE (test code = 1.01 mg/dL 0.60-1.25 0904432970) CALCIUM (test code = 8.6 mg/dL 8.6-10.6 9982630866) eGFR Calculation mL/min/1.73m2 (Non-) (test code = 9466865501) eGFR Calculation mL/min/1.73m2 () (test code = 7079798164) DIANE (test code = DIANE) Association of [...] tests). Lab Interpretation Abnormal (test code = 90924-2) [facility] [id number] 13:37:24 Test Item Value Reference Range Interpretation Comments NT-proBNP (test code 3880 pg/mL See_Comment H [Autom ated = 7886252216) message] The system which generated this result transmitted reference range : <=125. The reference range was not used to interpret this result as normal/abnormal . DIANE (test code = DIANE) Biotin has been reported to cause a negative bias, interpret results relative to patient's use of biotin. Lab Interpretation Abnormal (test code = 33729-9) [facility]2020-07-28 13:25:27 Test Item Value Reference Range Interpretation Comments POCT GLU (test code = 7889249462) 140 mg/dL 70-110 H Lab Interpretation (test code = Abnormal 16771-0) [facility] CBC with [id number] 12:38:02 Test Item Value Reference Range Interpretation [...] RDW-SD (test code = 49.2 fL 38.5-51.6 79579-9) RDW-CV (test code = 16.9 % 12.1-15.4 H 788-0) PLT (test code = See_Comment H [Automated 777-3) message] The sy stem which generated this result transmitted reference range : 150 - 328 10*3/ ?L. The reference r batsheva was not used to interpret this result as normal/abnormal . MPV (test code = 9.8 fL 9.8-13.0 67630-0) NRBC/100 WBC (test See_Comment [Automat ed code = 0045504268) message] The system which generated this result transmitted reference range : 0.0 - 10.0 /100 WBCs. The refer ence range was not u sed to interpret th is result as normal/abnormal . NRBC x10^3 (test code <0.01 See_Comment [Auto mated = 9405222091) message] The s ystem which generated this result transmitted reference range : 10*3/?L. The reference range was not used to interpret this result as normal/abnormal . GRAN MAT (NEUT) % 63.7 % (test code = 770-8) IMM GRAN % (test code 0.50 % = 2009469219) LYMPH % (test code = 20.3 % 736-9) MONO % (test code = 7.3 % 5905-5) EOS % (test code = 7.8 % 713-8) BASO % (test code = 0.4 % 706-2) GRAN MAT x10^3(ANC) 4.70 10*3/uL 1.99-6.95 (test code = 4898360689) IMM GRAN x10^3 (test 0.04 10*3/uL 0.00-0.06 code = 3610665476) LYMPH x10^3 (test code 1.50 10*3/uL 1.09-3.23 = 731-0) MONO x10^3 (test code 0.54 10*3/uL 0.36-1.02 = 742-7) EOS x10^3 (test code = 0.58 10*3/uL 0.06-0.53 H 711-2) BASO x10^3 (test code 0.03 10*3/uL 0.01-0.09 = 704-7) Lab Interpretation Abnormal (test code = 33960-9) [facility]inteJORGE [id number] 05:36:52 Test Item Value Reference Range Interpretation Comments TROPONIN I (test 0.026 ng/mL See_Comment [Automated code = 9417655118) message] The system which generated this result [...] ? Lab Interpretation Normal (test code = 53717-1) [facility] GLUCOSE (AUTOMATED)2020-07-28 02:17:16 Test Item Value Reference Range Interpretation Comments POCT GLU (test code = 9087576330) 157 mg/dL 70-110 H Lab Interpretation (test code = Abnormal 84803-5) [facility]inteaPTT2021-03-09 00:22:07 Test Item Value Reference Range Interpretation Comments APTT Patient (test See_Comment H [Automat ed code = 3173-2) message] The system which generated this result transmitted reference range : 23 - 38 Seconds . The reference range was not used to interpr et this result as normal/abnormal . DIANE (test code = DIANE) The [facility] patient population mean normal value for aPTT is 30 seconds. Lab Interpretation Abnormal (test code = 08925-7) [facility]inteACTIVATED PARTIAL THRMPLAS [id number] 00:19:44 Test Item Value Reference Range Interpretation Comments APTT Patient (test code = See_Comment [ Automated message] 3173-2) The system [employer] h generated this result transmitted ref erence range: 23 - 38 Seconds. The re ference range was not u sed to interpret this result as normal/abnor mal. Lab Interpretation (test Normal code = 34143-8) [facility] PointePROTHROMBIN TIME / [id number] 00:17:22 Test Item Value Reference Range Interpretation Comments PROTIME PATIENT (test See_Comment [Auto mated message] code = 5964-2) The system Adan ich generated this result transmitted ref erence range: 12.0 - 1 4.7 Seconds. The re ference range was not u sed to interpret this result as normal/abnor mal. INR (test code = 6301-6) Nor mal INR <1.1; Warfarin Therap eutic range 2.0 to 3. 0 or 2.5 to 3.5, dep ending upon the indica tions. Lab Interpretation (test Normal code = 25102-5) [facility] GLUCOSE (AUTOMATED)2020-07-27 22:57:49 Test Item Value Reference Range Interpretation Comments POCT GLU (test code = 6136326061) 165 mg/dL 70-110 H Lab Interpretation (test code = Abnormal 86703-1) [facility]2020-07-27 21:00:40 Test Item Value Reference Range Interpretation Comments POCT GLU (test code = 2562544275) 162 mg/dL 70-110 H Lab Interpretation (test code = Abnormal 75680-0) [facility]inteTROPONIN [id number] 18:56:42 Test Item Value Reference Range Interpretation Comments TROPONIN I (test 0.024 ng/mL See_Comment [Automated code = 3089564754) message] The system which generated this result [...] ? Lab Interpretation Normal (test code = 77783-2) [facility]OVID[facility] (ID NOW RAPID TESTING)2020-07-27 18:55:46 Test Item Value Reference Range Interpretation Comments SARS-CoV-2 Rapid ID NOW Not Detected Not Detected (test code = 67093-5) DIANE (test code = DIANE) ID NOW COVID-19 Assay is an isothermal nucleic acid amplification test intended for the qualitative detection of nucleic acid from SARS-CoV-2 viral RNA in nasopharyngeal ([employer]) specimens. It is used under Emergency Use [...] indicated. Lab Interpretation Normal (test code = 27290-0) [facility] PointePROTHROMBIN TIME / [id number] 18:55:26 Test Item Value Reference Range Interpretation Comments PROTIME PATIENT (test See_Comment H [Auto mated message] code = 5964-2) The system [employer] generated this result transmitted ref erence range: 12.0 - 1 4.7 Seconds. The reference range was not used to int erpret this result as normal/abnormal . INR (test code = 6301-6) Nor mal INR <1.1; Warfarin Therap eutic range 2.0 to 3. 0 or 2.5 to 3.5, dep ending upon the indica tions. Lab Interpretation (test Abnormal code = 76867-0) [facility]inteXR CHEST 1 [id number] 18:55:21Impression: Mild pulmonary congestion.Exam: XR CHEST 1 [...] No acute osseous abnormality. IMPRESSIONImpression: Mild pulmonary congestion.[facility]inteN-TERMINAL [id number] 18:53:43 Test Item Value Reference Range Interpretation Comments NT-proBNP (test code 4050 pg/mL See_Comment H [Autom ated = 6178133095) message] The system which generated this result transmitted reference range : <=125. The reference range was not used to interpret this result as normal/abnormal . DIANE (test code = DIANE) Biotin has been reported to cause a negative bias, interpret results relative to patient's use of biotin. Lab Interpretation Abnormal (test code = 91469-3) [facility]inteMAGNESIUM2021-03-08 18:46:39 Test Item Value Reference Range Interpretation Comments MAGNESIUM (test code = 6347733723) 1.9 mg/dL 1.7-2.4 Lab Interpretation (test code = Normal 45173-9) [facility] PointeCOMP. METABOLIC PANEL (38783)2020-07-27 18:46:23 Test Item Value Reference Range Interpretation Comments NA (test code = 144 mmol/L 135-145 0466273033) K (test code = 3.6 mmol/L 3.5-5.0 5829071180) CL (test code = 110 mmol/L 98-108 H 1221841662) CO2 TOTAL (test code = 25 mmol/L 23-31 4921866617) AGAP (test code = 2-16 8400171355) BUN (test code = 11 mg/dL 7-23 4478821212) GLUCOSE (test code = 190 mg/dL 70-110 H 9043258792) CREATININE (test code = 0.93 mg/dL 0.60-1.25 8538052806) TOTAL BILI (test code = 0.5 mg/dL 0.1-1.5 9336660751) CALCIUM (test code = 8.7 mg/dL 8.6-10.6 4911296883) T PROTEIN (test code = 7.1 g/dL 6.3-8.2 1567882523) ALBUMIN (test code = 3.9 g/dL 3.5-5.0 4307641415) ALK PHOS (test code = 150 U/L 34-122 H 0032875847) ALTv (test code = 14 U/L 5-50 1742-6) AST(SGOT) (test code = 25 U/L 13-40 0992263245) eGFR Calculation mL/min/1.73m2 (Non-) (test code = 7601926397) eGFR Calculation mL/min/1.73m2 () (test code = 7629748603) DIANE (test code = DIANE) Association of [...] tests). Lab Interpretation Abnormal (test code = 68421-7) [facility] PointeLIPASE2021-03-08 18:46:03 Test Item Value Reference Range Interpretation Comments LIPASE (test code = 7243145365) 119 U/L 0-220 Lab Interpretation (test code = Normal 63697-5) [facility] WITH [id number] 18:34:41 Test Item Value Reference Range Interpretation [...] RDW-SD (test code = 45.3 fL 38.5-51.6 67038-3) RDW-CV (test code = 16.1 % 12.1-15.4 H 788-0) PLT (test code = See_Comment H [Automated 777-3) message] The sy stem which generated this result transmitted reference range : 150 - 328 10*3/ ?L. The reference r batsheva was not used to interpret this result as normal/abnormal . MPV (test code = 9.0 fL 9.8-13.0 L 46637-2) NRBC/100 WBC (test See_Comment [Automat ed code = 7923490000) message] The system which generated this result transmitted reference range : 0.0 - 10.0 /100 WBCs. The refer ence range was not u sed to interpret th is result as normal/abnormal . NRBC x10^3 (test code <0.01 See_Comment [Auto mated = 5325680401) message] The s ystem which generated this result transmitted reference range : 10*3/?L. The reference range was not used to interpret this result as normal/abnormal . GRAN MAT (NEUT) % 74.4 % (test code = 770-8) IMM GRAN % (test code 0.60 % = 0309245615) LYMPH % (test code = 12.5 % 736-9) MONO % (test code = 7.0 % 5905-5) EOS % (test code = 5.0 % 713-8) BASO % (test code = 0.5 % 706-2) GRAN MAT x10^3(ANC) 7.09 10*3/uL 1.99-6.95 H (test code = 9228039828) IMM GRAN x10^3 (test 0.06 10*3/uL 0.00-0.06 code = 4992509812) LYMPH x10^3 (test code 1.19 10*3/uL 1.09-3.23 = 731-0) MONO x10^3 (test code 0.67 10*3/uL 0.36-1.02 = 742-7) EOS x10^3 (test code = 0.48 10*3/uL 0.06-0.53 711-2) BASO x10^3 (test code 0.05 10*3/uL 0.01-0.09 = 704-7) Lab Interpretation Abnormal (test code = 33609-6) [facility] GLUCOSE (AUTOMATED)2020-07-27 18:34:20 Test Item Value Reference Range Interpretation Comments POCT GLU (test code = 4086791034) 208 mg/dL 70-110 H Lab Interpretation (test code = Abnormal 21870-1) [facility] GLUCOSE (AUTOMATED)2020-07-20 23:35:00 Test Item Value Reference Range Interpretation Comments POCT GLU (test code = 4381109362) 208 mg/dL 70-110 H Lab Interpretation (test code = Abnormal 63753-9) [facility] [id number] 21:28:00 Test Item Value Reference Range Interpretation Comments IRON (test code = <10 50-160 L 1785288631) TIBC (test code = 360 ug/dL 250-410 9563306105) % FE SAT (test code = Unable to calculate 9830443296) because, either iron serum, total ir on binding capacit y, or both are less t lam the sensitivity of the analyzer. Lab Interpretation (test Abnormal code = 06143-0) [facility]inteFIBRINOGEN2021-03-01 20:47:00 Test Item Value Reference Range Interpretation Comments Fibrinogen (test code = 8773458137) 614 mg/dL 167-453 H Lab Interpretation (test code = Abnormal 82488-6) [facility] PointeCBC WITHOUT [id number] 20:42:00 Test Item Value Reference Range Interpretation Comments WBC (test code = 6690-2) See_Comment [A utomated message] The system [employer] generated this result transmit ludmila reference range : 4.20 - 10.70 10*3/?L. The reference range was not used to interpret this result as normal/abnormal . RBC (test code = 789-8) See_Comment L [Au tomated message] The system [employer] generated this result transmit ludmila reference range [...] See_Comment H [Au tomated message] The system [employer] generated this result transmit ludmila reference range : 150 - 328 10*3/?L. The reference range was not used to interpret this result as normal/abnormal . MPV (test code = 9.9 fL 9.8-13 39103-7) RDW-CV (test code = 13.6 % 12.1-15.4 788-0) RDW-SD (test code = 41.9 fL 38.5-51.6 12368-8) NRBC x10^3 (test code = <0.01 See_Comment [Au tomated message] 8209703490) The system [employer] generated this result transmit ludmila reference range : 10*3/?L. The reference range was not used to interpret this result as normal/abnormal . NRBC/100 WBC (test code See_Comment [Au tomated message] = 1519151218) The system [employer] generated this result transmit ludmila reference range : 0.0 - 10.0 /100 WBC s. The reference r batsheva was not used to interpret this result as normal/abnormal . IPF % (test code = 7303335809) Lab Interpretation (test Abnormal code = 26412-6) [facility] GLU[facility]SE (AUTOMATED)2020-07-20 19:39:00 Test Item Value Reference Range Interpretation Comments POCT GLU (test code = 2277343871) 214 mg/dL 70-110 H Lab Interpretation (test code = Abnormal 14062-4) [facility] PointeFERRITIN [id number] 18:51:00 Test Item Value Reference Range Interpretation Comments FERRITIN (test code = 16.5 ng/mL 18-464 L 9947488718) DIANE (test code = DIANE) Biotin has been reported to cause a negative bias, interpret results relative to patient's use of biotin. Lab Interpretation (test Abnormal code = 47019-4) [facility] PointeType and Screen - ONCE [id number] 17:59:01 Test Item Value Reference Range Interpretation Comments ABO & RH (test code O POSITIVE Performe d at [facility] = 20) Laboratory Serv [facility] Blood [facility] [facility] [address]Frrd Free: [phone] A No. [id number] IAT (test code = Negative Performed a t [facility] 1185) Laboratory [facility] Blood [facility]3 [facility] s [address]Zxyh Free: [phone] A No. [id number] [facility] PointeBASI METABOLIC PANEL (NA, K, CL, CO2, GLUCOSE, BUN, CREATININE, CA)2020-07-20 10:54:00 Test Item Value Reference Range Interpretation Comments NA (test code = 137 mmol/L 135-145 7892464102) K (test code = 3.9 mmol/L 3.5-5 3505600194) CL (test code = 107 mmol/L 98-108 3248761901) CO2 TOTAL (test code = 25 mmol/L 23-31 6969100057) AGAP (test code = 2-16 7812310252) BUN (test code = 10 mg/dL 7-23 3015266956) GLUCOSE (test code = 165 mg/dL 70-110 H 3563843059) CREATININE (test code = 0.92 mg/dL 0.6-1.25 0618749386) CALCIUM (test code = 8.2 mg/dL 8.6-10.6 L 3527838209) eGFR Calculation mL/min/1.73m2 (Non-) (test code = 2006191274) eGFR Calculation mL/min/1.73m2 () (test code = 7161255301) DIANE (test code = DIANE) Association of [...] tests). Lab Interpretation Abnormal (test code = 99333-9) [facility] WITH [id number] 10:23:00 Test Item Value Reference Range Interpretation [...] RDW-SD (test code = 42.2 fL 38.5-51.6 76532-3) RDW-CV (test code = 13.5 % 12.1-15.4 788-0) PLT (test code = See_Comment [Automated 777-3) message] The sy stem which generated this result transmitted reference range : 150 - 328 10*3/ ?L. The reference r batsheva was not used to interpret this result as normal/abnormal . MPV (test code = 9.9 fL 9.8-13 83366-4) NRBC/100 WBC (test See_Comment [Automat ed code = 7762104627) message] The system which generated this result transmitted reference range : 0.0 - 10.0 /100 WBCs. The refer ence range was not u sed to interpret th is result as normal/abnormal . NRBC x10^3 (test code <0.01 See_Comment [Auto mated = 3758934544) message] The s ystem which generated this result transmitted reference range : 10*3/?L. The reference range was not used to interpret this result as normal/abnormal . GRAN MAT (NEUT) % 64.6 % (test code = 770-8) IMM GRAN % (test code 0.40 % = 6857599933) LYMPH % (test code = 18.3 % 736-9) MONO % (test code = 10.3 % 5905-5) EOS % (test code = 6.0 % 713-8) BASO % (test code = 0.4 % 706-2) GRAN MAT x10^3(ANC) 4.63 10*3/uL 1.99-6.95 (test code = 9398940632) IMM GRAN x10^3 (test 0.03 10*3/uL 0-0.06 code = 7128360748) LYMPH x10^3 (test code 1.31 10*3/uL 1.09-3.23 = 731-0) MONO x10^3 (test code 0.74 10*3/uL 0.36-1.02 = 742-7) EOS x10^3 (test code = 0.43 10*3/uL 0.06-0.53 711-2) BASO x10^3 (test code 0.03 10*3/uL 0.01-0.09 = 704-7) Lab Interpretation Abnormal (test code = 08585-6) [facility]19 23:59:00 Test Item Value Reference Range Interpretation Comments POCT GLU (test code = 9561076651) 135 mg/dL 70-110 H Lab Interpretation (test code = Abnormal 09885-2) [facility]21-[facility] 21:20:00 Test Item Value Reference Range Interpretation Comments MAGNESIUM (test code = 2.1 mg/dL 1.7-2.4 Sligh t hemolysis 2963067539) Lab Interpretation (test Normal code = 81048-0) [facility] WITHOUT [id number] 21:00:00 Test Item Value Reference Range Interpretation Comments WBC (test code = 6690-2) See_Comment [A utomated message] The system [employer] generated this result transmit ludmila reference range : 4.20 - 10.70 10*3/?L. The reference range was not used to interpret this result as normal/abnormal . RBC (test code = 789-8) See_Comment L [Au tomated message] The system [facility] generated this result transmit ludmila [...] 777-3) See_Comment [Au tomated message] The system [facility] generated this result transmit ludmila reference range : 150 - 328 10*3/?L. The reference range was not used to interpret this result as normal/abnormal . MPV (test code = 10.1 fL 9.8-13 69965-0) RDW-CV (test code = 13.7 % 12.1-15.4 788-0) RDW-SD (test code = 42.2 fL 38.5-51.6 27957-7) NRBC x10^3 (test code = <0.01 See_Comment [Au tomated message] 8889216115) The system [facility] generated this result transmit ludmila reference range : 10*3/?L. The reference range was not used to interpret this result as normal/abnormal . NRBC/100 WBC (test code See_Comment [Au tomated message] = 3591730709) The system [facility] generated this result transmit ludmila reference range : 0.0 - 10.0 /100 WBC s. The reference r batsheva was not used to interpret this result as normal/abnormal . IPF % (test code = 0131620727) Lab Interpretation (test Abnormal code = 79287-7) [facility] GLUCOSE (AUTOMATED)2020-07-19 20:12:00 Test Item Value Reference Range Interpretation Comments POCT GLU (test code = 2881692921) 156 mg/dL 70-110 H Lab Interpretation (test code = Abnormal 87033-6) [facility] GLUCOSE (AUTOMATED)2020-07-19 15:56:00 Test Item Value Reference Range Interpretation Comments POCT GLU (test code = 9267216596) 162 mg/dL 70-110 H Lab Interpretation (test code = Abnormal 21462-3) [facility] FOOT RIGHT W [id number] 14:31:[address] findings of osteomyelitis. Cellulitis. [...] concern persists as this is therecommended imaging modality.[facility] METABOLIC PANEL (NA, K, CL, CO2, GLUCOSE, BUN, CREATININE, CA)2020-07-19 10:07:00 Test Item Value Reference Range Interpretation Comments NA (test code = 137 mmol/L 135-145 0979929611) K (test code = 4.1 mmol/L 3.5-5 Slight 9869871298) hemolysis CL (test code = 108 mmol/L 98-108 7496206721) CO2 TOTAL (test code 24 mmol/L 23-31 = 4825927032) AGAP (test code = 2-16 9049714934) BUN (test code = 10 mg/dL 7-23 Slight 9195179082) hemolysis GLUCOSE (test code = 134 mg/dL 70-110 H 5583227664) CREATININE (test code 0.80 mg/dL 0.6-1.25 = 3951109715) CALCIUM (test code = 8.2 mg/dL 8.6-10.6 L 5984401418) eGFR Calculation mL/min/1.73m2 (Non-) (test code = 7177788004) eGFR Calculation mL/min/1.73m2 () (test code = 6321536003) DIANE (test code = DIANE) Association of [...] tests). Lab Interpretation Abnormal (test code = 15682-6) [facility]2020-07-18 17:51:00 Test Item Value Reference Range Interpretation Comments POCT GLU (test code = 8610051286) 130 mg/dL 70-110 H Lab Interpretation (test code = Abnormal 09656-2) [facility] WITH [id number] 17:47:00 Test Item Value Reference Range Interpretation [...] RDW-SD (test code = 39.6 fL 38.5-51.6 70627-2) RDW-CV (test code = 13.2 % 12.1-15.4 788-0) PLT (test code = See_Comment [Automated 777-3) message] The sy stem which generated this result transmitted reference range : 150 - 328 10*3/ ?L. The reference r batsheva was not used to interpret this result as normal/abnormal . MPV (test code = 9.5 fL 9.8-13 L 36299-3) NRBC/100 WBC (test See_Comment [Automat ed code = 7035895865) message] The system which generated this result transmitted reference range : 0.0 - 10.0 /100 WBCs. The refer ence range was not u sed to interpret th is result as normal/abnormal . NRBC x10^3 (test code <0.01 See_Comment [Auto mated = 5789325872) message] The s ystem which generated this result transmitted reference range : 10*3/?L. The reference range was not used to interpret this result as normal/abnormal . GRAN MAT (NEUT) % 70.3 % (test code = 770-8) IMM GRAN % (test code 0.30 % = 9681508574) LYMPH % (test code = 16.0 % 736-9) MONO % (test code = 10.1 % 5905-5) EOS % (test code = 3.0 % 713-8) BASO % (test code = 0.3 % 706-2) GRAN MAT x10^3(ANC) 5.37 10*3/uL 1.99-6.95 (test code = 0391015718) IMM GRAN x10^3 (test <0.03 0-0.06 code = 3267834903) LYMPH x10^3 (test code 1.22 10*3/uL 1.09-3.23 = 731-0) MONO x10^3 (test code 0.77 10*3/uL 0.36-1.02 = 742-7) EOS x10^3 (test code = 0.23 10*3/uL 0.06-0.53 711-2) BASO x10^3 (test code <0.03 0.01-0.09 = 704-7) Lab Interpretation Abnormal (test code = 50972-5) [facility] GLUCOSE (AUTOMATED)2020-07-18 15:51:00 Test Item Value Reference Range Interpretation Comments POCT GLU (test code = 9650782911) 123 mg/dL 70-110 H Lab Interpretation (test code = Abnormal 18433-3) [facility] GLUCOSE (AUTOMATED)2020-07-18 00:19:00 Test Item Value Reference Range Interpretation Comments POCT GLU (test code = 0831138635) 138 mg/dL 70-110 H Lab Interpretation (test code = Abnormal 36637-7) [facility] OR (NON-REPORTABLE)2020-07-17 23:42:17 These images do not require a Radiology diagnostic report.[facility] GLUCOSE (AUTOMATED)2020-07-17 16:30:00 Test Item Value Reference Range Interpretation Comments POCT GLU (test code = 2023605497) 140 mg/dL 70-110 H Lab Interpretation (test code = Abnormal 50299-7) [facility] METABOLIC PANEL (NA, K, CL, CO2, GLUCOSE, BUN, CREATININE, CA)2020-07-17 11:53:00 Test Item Value Reference Range Interpretation Comments NA (test code = 135 mmol/L 135-145 1174470334) K (test code = 4.0 mmol/L 3.5-5 3255901678) CL (test code = 107 mmol/L 98-108 6145623339) CO2 TOTAL (test code = 18 mmol/L 23-31 L 8436030705) AGAP (test code = 2-16 3374897200) BUN (test code = 12 mg/dL 7-23 8087485816) GLUCOSE (test code = 144 mg/dL 70-110 H 2721245605) CREATININE (test code = 0.90 mg/dL 0.6-1.25 3888228336) CALCIUM (test code = 8.2 mg/dL 8.6-10.6 L 3966735299) eGFR Calculation mL/min/1.73m2 (Non-) (test code = 9472029170) eGFR Calculation mL/min/1.73m2 () (test code = 9231393093) DIANE (test code = DIANE) Association of [...] tests). Lab Interpretation Abnormal (test code = 13502-9) [facility] WITH [id number] 11:06:00 Test Item Value Reference Range Interpretation Comments WBC (test code = See_Comment [Automated 7233-2) message] The sy stem which generated this [...] RDW-SD (test code = 41.4 fL 38.5-51.6 59284-2) RDW-CV (test code = 13.4 % 12.1-15.4 788-0) PLT (test code = See_Comment [Automated 777-3) message] The sy stem which generated this result transmitted reference range : 150 - 328 10*3/ ?L. The reference r batsheva was not used to interpret this result as normal/abnormal . MPV (test code = 9.7 fL 9.8-13 L 17249-9) NRBC/100 WBC (test See_Comment [Automat ed code = 6983595684) message] The system which generated this result transmitted reference range : 0.0 - 10.0 /100 WBCs. The refer ence range was not u sed to interpret th is result as normal/abnormal . NRBC x10^3 (test code <0.01 See_Comment [Auto mated = 8301275409) message] The s ystem which generated this result transmitted reference range : 10*3/?L. The reference range was not used to interpret this result as normal/abnormal . GRAN MAT (NEUT) % 57.5 % (test code = 770-8) IMM GRAN % (test code 0.40 % = 2801275427) LYMPH % (test code = 24.8 % 736-9) MONO % (test code = 11.1 % 5905-5) EOS % (test code = 5.6 % 713-8) BASO % (test code = 0.6 % 706-2) GRAN MAT x10^3(ANC) 3.86 10*3/uL 1.99-6.95 (test code = 8814593763) IMM GRAN x10^3 (test 0.03 10*3/uL 0-0.06 code = 1324893942) LYMPH x10^3 (test code 1.67 10*3/uL 1.09-3.23 = 731-0) MONO x10^3 (test code 0.75 10*3/uL 0.36-1.02 = 742-7) EOS x10^3 (test code = 0.38 10*3/uL 0.06-0.53 711-2) BASO x10^3 (test code 0.04 10*3/uL 0.01-0.09 = 704-7) Lab Interpretation Abnormal (test code = 61077-9) [facility] GLUCOSE (AUTOMATED)2020-07-17 00:46:00 Test Item Value Reference Range Interpretation Comments POCT GLU (test code = 2066213611) 130 mg/dL 70-110 H Lab Interpretation (test code = Abnormal 18396-1) [facility] GLUCOSE (AUTOMATED)2020-07-17 00:35:00 Test Item Value Reference Range Interpretation Comments POCT GLU (test code = 8048433778) 127 mg/dL 70-110 H Lab Interpretation (test code = Abnormal 37420-9) [facility] COVID [id number] 23:52:00COVID DMT InterpretationInterpretation/Recommendations: Molecular NAAT Tests for [...] COVID-19 testing the patient has had at [facility], including molecular NAAT testing (more commonly known as PCR testing and Rapid ID Now testing) and antibody testing. It does not take into account any testing that a patient has had outside of the [facility] medical record. [facility] LABORATORY SERVICESCOVID Res [id number] Rapid ID NOW (no units) ? ? Date ? Value ? 07/16/2020 ? Not Detected ? ? ? 07/10/2020 ? Not Detected ? ? ? 05/29/2020 ? Not Detected ? ? ? 03/16/2020 ? Not Detected ? ? ? 02/03/2020 ? Not Detected ? ? ? 11/16/2019 ? Not Detected ? ? ? 09/17/2019 ? Not Detected ? [facility]ORAT[facility] SERVICESUnThe [facility] Type and Screen - ONCE [id number] 22:45:46 Test Item Value Reference Range Interpretation Comments ABO & RH (test code O POSITIVE Performe d at [facility] = 20) Laboratory Serv [facility] [address] [place] [address] s [id number] Free: [phone] A No. [id number] IAT (test code = Negative Performed a t [facility] 1185) Laboratory Serv [facility] [address] [place] [address] s [id number] Free: [phone] A No. [id number] [facility] (ID NOW RAPID TESTING)2020-07-16 21:53:00 Test Item Value Reference Range Interpretation Comments SARS-CoV-2 Rapid ID NOW Not Detected Not Detected (test code = 97423-6) DIANE (test code = DIANE) ID NOW COVID-19 Assay is an isothermal nucleic acid amplification test intended for the qualitative detection of nucleic acid from SARS-CoV-2 viral RNA in nasopharyngeal (SUPERVISOR INCISING) specimens. It is used under Emergency Use [...] indicated. Lab Interpretation Normal (test code = 93630-6) [facility] GLUCOSE (AUTOMATED)2020-07-16 21:13:00 Test Item Value Reference Range Interpretation Comments POCT GLU (test code = 1027009737) 146 mg/dL 70-110 H Lab Interpretation (test code = Abnormal 85858-7) [facility] GLUCOSE (AUTOMATED)2020-07-16 15:39:00 Test Item Value Reference Range Interpretation Comments POCT GLU (test code = 1498868212) 90 mg/dL 70-110 Lab Interpretation (test code = Normal 89707-9) [facility] [id number] 14:01:00 Test Item Value Reference Range Interpretation Comments Blood Culture-Aerobic No organisms No growth Previo us (test code = 02079-6) isolated prelim inary verified result was Culture In Progress on 07/11/2020 at 11 01 CSTPrevious preliminary verified result was No growth a t 24 hours on 07/12/2020 at 08 01 CSTPrevious preliminary verified result was No growth a t 48 hours on 07/13/2020 at 08 01 CSTPrevious preliminary verified result was No growth a t 72 hours on 07/14/2020 at 08 01 CODING COMPLIANCE MANAGER Blood No organisms No growth Previous Culture-Anaerobic isolated preliminar y (test code = 27501-9) verifi ed result was Culture In Progress on 07/11/2020 at 11 01 CSTPrevious preliminary verified result was No growth a t 24 hours on 07/12/2020 at 08 01 CSTPrevious preliminary verified result was No growth a t 48 hours on 07/13/2020 at 08 01 CSTPrevious preliminary verified result was No growth a t 72 hours on 07/14/2020 at 08 01 CODING COMPLIANCE MANAGER Lab Interpretation Normal (test code = 84971-4) [facility] [id number] 14:01:00 Test Item Value Reference Range Interpretation Comments Blood Culture-Aerobic No organisms No growth Previo us (test code = 10603-4) isolated prelim inary verified result was Culture In Progress on 07/11/2020 at 11 01 CSTPrevious preliminary verified result was No growth a t 24 hours on 07/12/2020 at 08 01 CSTPrevious preliminary verified result was No growth a t 48 hours on 07/13/2020 at 08 01 CSTPrevious preliminary verified result was No growth a t 72 hours on 07/14/2020 at 08 01 CODING COMPLIANCE MANAGER Blood No organisms No growth Previous Culture-Anaerobic isolated preliminar y (test code = 35424-4) verifi ed result was Culture In Progress on 07/11/2020 at 11 01 CSTPrevious preliminary verified result was No growth a t 24 hours on 07/12/2020 at 08 01 CSTPrevious preliminary verified result was No growth a t 48 hours on 07/13/2020 at 08 01 CSTPrevious preliminary verified result was No growth a t 72 hours on 07/14/2020 at 08 01 CODING COMPLIANCE MANAGER Lab Interpretation Normal (test code = 43417-9) [facility] (NA, K, CL, CO2, GLUCOSE, BUN, CREATININE, CA)2020-07-16 12:05:00 Test Item Value Reference Range Interpretation Comments NA (test code = 137 mmol/L 135-145 8597847452) K (test code = 3.7 mmol/L 3.5-5 8394990373) CL (test code = 107 mmol/L 98-108 1227442100) CO2 TOTAL (test code = 22 mmol/L 23-31 L 5899643505) AGAP (test code = 2-16 9080567299) BUN (test code = 13 mg/dL 7-23 2224951065) GLUCOSE (test code = 83 mg/dL 70-110 6713595760) CREATININE (test code = 1.00 mg/dL 0.6-1.25 4912854286) CALCIUM (test code = 8.1 mg/dL 8.6-10.6 L 2725892758) eGFR Calculation mL/min/1.73m2 (Non-) (test code = 4187058340) eGFR Calculation mL/min/1.73m2 () (test code = 5182436043) DIANE (test code = DIANE) Association of [...] tests). Lab Interpretation Abnormal (test code = 08968-5) [facility] WITH [id number] 11:15:00 Test Item Value Reference Range Interpretation [...] RDW-SD (test code = 42.5 fL 38.5-51.6 00177-3) RDW-CV (test code = 13.5 % 12.1-15.4 788-0) PLT (test code = See_Comment [Automated 777-3) message] The sy stem which generated this result transmitted reference range : 150 - 328 10*3/ ?L. The reference r batsheva was not used to interpret this result as normal/abnormal . MPV (test code = 9.9 fL 9.8-13 15488-5) NRBC/100 WBC (test See_Comment [Automat ed code = 6814612368) message] The system which generated this result transmitted reference range : 0.0 - 10.0 /100 WBCs. The refer ence range was not u sed to interpret th is result as normal/abnormal . NRBC x10^3 (test code <0.01 See_Comment [Auto mated = 3110691532) message] The s ystem which generated this result transmitted reference range : 10*3/?L. The reference range was not used to interpret this result as normal/abnormal . GRAN MAT (NEUT) % 55.5 % (test code = 770-8) IMM GRAN % (test code 0.30 % = 2889696407) LYMPH % (test code = 27.3 % 736-9) MONO % (test code = 11.3 % 5905-5) EOS % (test code = 5.1 % 713-8) BASO % (test code = 0.5 % 706-2) GRAN MAT x10^3(ANC) 3.48 10*3/uL 1.99-6.95 (test code = 9272661276) IMM GRAN x10^3 (test <0.03 0-0.06 code = 6082411994) LYMPH x10^3 (test code 1.71 10*3/uL 1.09-3.23 = 731-0) MONO x10^3 (test code 0.71 10*3/uL 0.36-1.02 = 742-7) EOS x10^3 (test code = 0.32 10*3/uL 0.06-0.53 711-2) BASO x10^3 (test code 0.03 10*3/uL 0.01-0.09 = 704-7) Lab Interpretation Abnormal (test code = 35449-5) [facility] GLUCOSE (AUTOMATED)2020-07-15 23:21:00 Test Item Value Reference Range Interpretation Comments POCT GLU (test code = 1402489759) 98 mg/dL 70-110 Lab Interpretation (test code = Normal 36937-3) [facility] GLUCOSE (AUTOMATED)2020-07-15 18:58:00 Test Item Value Reference Range Interpretation Comments POCT GLU (test code = 4251787433) 153 mg/dL 70-110 H Lab Interpretation (test code = Abnormal 20998-5) [facility]inteC-REACTIVE [id number] 17:07:00 Test Item Value Reference Range Interpretation Comments CRP (test code = 9157522155) 3.5 mg/dL <0.8 H Lab Interpretation (test code = Abnormal 97580-2) [facility] PointeSEDIMENTATION [id number] 11:48:00 Test Item Value Reference Range Interpretation Comments ESR (test code = See_Comment H [Automated message] 7215841317) The system [employer] generated this result transmitted ref erence range: 0 - 10 m m/HR. The reference r batsheva was not used to interpret this result as normal/abnor mal. Lab Interpretation (test Abnormal code = 14488-0) [facility] METABOLIC PANEL (NA, K, CL, CO2, GLUCOSE, BUN, CREATININE, CA)2020-07-15 11:15:00 Test Item Value Reference Range Interpretation Comments NA (test code = 137 mmol/L 135-145 6149361953) K (test code = 3.6 mmol/L 3.5-5 9113875441) CL (test code = 107 mmol/L 98-108 1964076485) CO2 TOTAL (test code = 23 mmol/L 23-31 0933121127) AGAP (test code = 2-16 8041945861) BUN (test code = 16 mg/dL 7-23 1848639473) GLUCOSE (test code = 189 mg/dL 70-110 H 0965650974) CREATININE (test code = 1.22 mg/dL 0.6-1.25 4312770452) CALCIUM (test code = 8.2 mg/dL 8.6-10.6 L 8176661466) eGFR Calculation mL/min/1.73m2 (Non-) (test code = 6140836231) eGFR Calculation mL/min/1.73m2 () (test code = 6682637175) DIANE (test code = DIANE) Association of [...] tests). Lab Interpretation Abnormal (test code = 46837-2) [facility]2021-[facility] 11:15:00 Test Item Value Reference Range Interpretation Comments MAGNESIUM (test code = 0603395757) 1.8 mg/dL 1.7-2.4 Lab Interpretation (test code = Normal 13446-7) [facility] GLUCOSE (AUTOMATED)2020-07-14 22:47:00 Test Item Value Reference Range Interpretation Comments POCT GLU (test code = 2875796342) 204 mg/dL 70-110 H Lab Interpretation (test code = Abnormal 33400-7) [facility]inteVancomycin Trough Level - Draw no more than 60 minutes before the 1400 dose.2020-07-14 22:38:00 Test Item Value Reference Range Interpretation Comments VANCO TROUGH (test code 17.4 ug/mL 10-20 = 5937488743) DIANE (test code = DIANE) Toxic Range: ?>20 ug/mL 15-20 ug/mL is recommended for severe infection or when Vancomycin MILLICENT is greater than or equal to 2. Lab Interpretation (test Normal code = 63209-4) [facility] GLUCOSE (AUTOMATED)2020-07-14 18:02:00 Test Item Value Reference Range Interpretation Comments POCT GLU (test code = 7254652581) 126 mg/dL 70-110 H Lab Interpretation (test code = Abnormal 81336-0) [facility] GLUCOSE (AUTOMATED)2020-07-14 13:58:00 Test Item Value Reference Range Interpretation Comments POCT GLU (test code = 7933304429) 104 mg/dL 70-110 Lab Interpretation (test code = Normal 65843-1) [facility]inteB[facility] Metabolic Panel (NA, K, CL, CO2, GLUCOSE, BUN, CREATININE, CA)2020-07-14 12:45:00 Test Item Value Reference Range Interpretation Comments NA (test code = 136 mmol/L 135-145 0313609628) K (test code = 3.5 mmol/L 3.5-5 6925430260) CL (test code = 104 mmol/L 98-108 6144920123) CO2 TOTAL (test code = 27 mmol/L 23-31 4795209642) AGAP (test code = 2-16 6003979520) BUN (test code = 17 mg/dL 7-23 2734544154) GLUCOSE (test code = 110 mg/dL 70-110 4045270787) CREATININE (test code = 1.38 mg/dL 0.6-1.25 H 1733042984) CALCIUM (test code = 8.0 mg/dL 8.6-10.6 L 8420933482) eGFR Calculation mL/min/1.73m2 (Non-) (test code = 9919495908) eGFR Calculation mL/min/1.73m2 () (test code = 5410095705) DIANE (test code = DIANE) Association of [...] tests). Lab Interpretation Abnormal (test code = 35677-3) [facility] with [id number] 12:33:00 Test Item Value Reference Range Interpretation [...] RDW-SD (test code = 41.3 fL 38.5-51.6 85579-0) RDW-CV (test code = 13.2 % 12.1-15.4 788-0) PLT (test code = See_Comment [Automated 777-3) message] The sy stem which generated this result transmitted reference range : 150 - 328 10*3/ ?L. The reference r batsheva was not used to interpret this result as normal/abnormal . MPV (test code = 10.4 fL 9.8-13 96083-0) NRBC/100 WBC (test See_Comment [Automat ed code = 2466958091) message] The system which generated this result transmitted reference range : 0.0 - 10.0 /100 WBCs. The refer ence range was not u sed to interpret th is result as normal/abnormal . NRBC x10^3 (test code <0.01 See_Comment [Auto mated = 4831956670) message] The s ystem which generated this result transmitted reference range : 10*3/?L. The reference range was not used to interpret this result as normal/abnormal . GRAN MAT (NEUT) % 57.7 % (test code = 770-8) IMM GRAN % (test code 0.20 % = 6838640690) LYMPH % (test code = 22.6 % 736-9) MONO % (test code = 13.5 % 5905-5) EOS % (test code = 5.5 % 713-8) BASO % (test code = 0.5 % 706-2) GRAN MAT x10^3(ANC) 3.48 10*3/uL 1.99-6.95 (test code = 3145408941) IMM GRAN x10^3 (test <0.03 0-0.06 code = 0617166006) LYMPH x10^3 (test code 1.36 10*3/uL 1.09-3.23 = 731-0) MONO x10^3 (test code 0.81 10*3/uL 0.36-1.02 = 742-7) EOS x10^3 (test code = 0.33 10*3/uL 0.06-0.53 711-2) BASO x10^3 (test code 0.03 10*3/uL 0.01-0.09 = 704-7) Lab Interpretation Abnormal (test code = 51500-1) [facility]intePROTHROMBIN TIME / [id number] 12:17:00 Test Item Value Reference Range Interpretation Comments PROTIME PATIENT (test See_Comment [Auto mated message] code = 5964-2) The system [employer] generated this result transmitted ref erence range: 12.0 - 1 4.7 Seconds. The re ference range was not u sed to interpret this result as normal/abnor mal. INR (test code = 6301-6) Nor mal INR <1.1; Warfarin Therap eutic range 2.0 to 3. 0 or 2.5 to 3.5, dep ending upon the indica tions. Lab Interpretation (test Normal code = 57945-8) [facility] COVID [id number] 04:10:00COVID DMT InterpretationInterpretation/Recommendations:Molecular NAAT Tests for Active [...] COVID-19 testing the patient has had at [facility], including molecular NAAT testing (more commonly known as PCR testing and Rapid ID Now testing) and antibody testing. It does not take into account any testing that a patient has had outside of the [facility] medical record. [facility] LABORATORY SERVICESCOVID ResultsSARS- CoV-2 Rapid ID NOW (no units) ? ? Date ? Value ? 07/10/2020 ? Not Detected ? ? ? 05/29/2020 ? Not Detected ? ? ? 03/16/2020 ? Not Detected ? ? ? 02/03/2020 ? Not Detected ? ? ? 11/16/2019 ? Not Detected ? ? ? 09/17/2019 ? Not Detected ? [facility] GLUCOSE (AUTOMATED)2020-07-13 22:37:00 Test Item Value Reference Range Interpretation Comments POCT GLU (test code = 3498399175) 121 mg/dL 70-110 H Lab Interpretation (test code = Abnormal 04421-0) [facility] GLUCOSE (AUTOMATED)2020-07-13 17:43:00 Test Item Value Reference Range Interpretation Comments POCT GLU (test code = 7650247084) 138 mg/dL 70-110 H Lab Interpretation (test code = Abnormal 93777-6) [facility] GLUCOSE (AUTOMATED)2020-07-13 14:00:00 Test Item Value Reference Range Interpretation Comments POCT GLU (test code = 6061500861) 96 mg/dL 70-110 Lab Interpretation (test code = Normal 12135-2) [facility] GLUCOSE (AUTOMATED)2020-07-13 11:44:00 Test Item Value Reference Range Interpretation Comments POCT GLU (test code = 7155112284) 118 mg/dL 70-110 H Lab Interpretation (test code = Abnormal 53566-4) [facility] with [id number] 11:24:00 Test Item Value Reference Range Interpretation [...] RDW-SD (test code = 40.8 fL 38.5-51.6 82638-7) RDW-CV (test code = 13.1 % 12.1-15.4 788-0) PLT (test code = See_Comment [Automated 777-3) message] The sy stem which generated this result transmitted reference range : 150 - 328 10*3/ ?L. The reference r batsheva was not used to interpret this result as normal/abnormal . MPV (test code = 10.3 fL 9.8-13 21174-2) NRBC/100 WBC (test See_Comment [Automat ed code = 0757911681) message] The system which generated this result transmitted reference range : 0.0 - 10.0 /100 WBCs. The refer ence range was not u sed to interpret th is result as normal/abnormal . NRBC x10^3 (test code <0.01 See_Comment [Auto mated = 3021273400) message] The s ystem which generated this result transmitted reference range : 10*3/?L. The reference range was not used to interpret this result as normal/abnormal . GRAN MAT (NEUT) % 56.8 % (test code = 770-8) IMM GRAN % (test code 0.40 % = 7949839214) LYMPH % (test code = 24.1 % 736-9) MONO % (test code = 10.9 % 5905-5) EOS % (test code = 7.3 % 713-8) BASO % (test code = 0.5 % 706-2) GRAN MAT x10^3(ANC) 3.13 10*3/uL 1.99-6.95 (test code = 8718256175) IMM GRAN x10^3 (test <0.03 0-0.06 code = 2110857456) LYMPH x10^3 (test code 1.33 10*3/uL 1.09-3.23 = 731-0) MONO x10^3 (test code 0.60 10*3/uL 0.36-1.02 = 742-7) EOS x10^3 (test code = 0.40 10*3/uL 0.06-0.53 711-2) BASO x10^3 (test code 0.03 10*3/uL 0.01-0.09 = 704-7) Lab Interpretation Abnormal (test code = 17700-6) [facility] Metabolic Panel (NA, K, CL, CO2, GLUCOSE, BUN, CREATININE, CA)2020-07-13 11:02:00 Test Item Value Reference Range Interpretation Comments NA (test code = 137 mmol/L 135-145 8296069116) K (test code = 3.4 mmol/L 3.5-5 L 2843551161) CL (test code = 104 mmol/L 98-108 9953719623) CO2 TOTAL (test code = 25 mmol/L 23-31 8911970065) AGAP (test code = 2-16 4456281003) BUN (test code = 17 mg/dL 7-23 8211296932) GLUCOSE (test code = 93 mg/dL 70-110 0513774455) CREATININE (test code = 1.38 mg/dL 0.6-1.25 H 2288115696) CALCIUM (test code = 8.2 mg/dL 8.6-10.6 L 5749644353) eGFR Calculation mL/min/1.73m2 (Non-) (test code = 0726962896) eGFR Calculation mL/min/1.73m2 () (test code = 1181211824) DIANE (test code = DIANE) Association of [...] tests). Lab Interpretation Abnormal (test code = 64221-8) [facility] GLUCOSE (AUTOMATED)2020-07-13 01:46:00 Test Item Value Reference Range Interpretation Comments POCT GLU (test code = 5501785120) 115 mg/dL 70-110 H Lab Interpretation (test code = Abnormal 54978-2) [facility] (A1C)2020-07-13 00:45:00 Test Item Value Reference Range Interpretation Comments HGB A1C (test code = 9.8 % 4-6 H 4548-4) DIANE (test code = DIANE) %A1C (NGSP) Interpretation (ADA)4.8-5.6 ? ? Normal or (Non-Diabetic Range)5.7-6.4 ? ? Increased Risk (Pre-Diabetic)>6.5 ?Diabetes Indicated Lab Interpretation Abnormal (test code = 46763-2) [facility] GLUCOSE (AUTOMATED)2020-07-12 22:23:00 Test Item Value Reference Range Interpretation Comments POCT GLU (test code = 5147624865) 141 mg/dL 70-110 H Lab Interpretation (test code = Abnormal 07734-6) [facility] T[facility] Level - Draw within 30 minutes prior to 4TH dose.2020-07-12 22:06:00 Test Item Value Reference Range Interpretation Comments VANCO TROUGH (test code 11.8 ug/mL 10-20 = 2609409884) DIANE (test code = DIANE) Toxic Range: ?>20 ug/mL 15-20 ug/mL is recommended for severe infection or when Vancomycin MILLICENT is greater than or equal to 2. Lab Interpretation (test Normal code = 94845-2) [facility] GLUCOSE (AUTOMATED)2020-07-12 17:24:00 Test Item Value Reference Range Interpretation Comments POCT GLU (test code = 7752262220) 171 mg/dL 70-110 H Lab Interpretation (test code = Abnormal 15232-4) [facility] Metabolic Panel (NA, K, CL, CO2, GLUCOSE, BUN, CREATININE, CA)2020-07-12 11:09:00 Test Item Value Reference Range Interpretation Comments NA (test code = 140 mmol/L 135-145 5057951515) K (test code = 3.7 mmol/L 3.5-5 1875969891) CL (test code = 106 mmol/L 98-108 0316401163) CO2 TOTAL (test code = 27 mmol/L 23-31 9748436461) AGAP (test code = 2-16 4117373870) BUN (test code = 15 mg/dL 7-23 2046046877) GLUCOSE (test code = 98 mg/dL 70-110 3044457960) CREATININE (test code = 1.18 mg/dL 0.6-1.25 6226924733) CALCIUM (test code = 8.3 mg/dL 8.6-10.6 L 9024314855) eGFR Calculation mL/min/1.73m2 (Non-) (test code = 6695246789) eGFR Calculation mL/min/1.73m2 () (test code = 1975326312) DIANE (test code = DIANE) Association of [...] tests). Lab Interpretation Abnormal (test code = 37924-8) [facility] with [id number] 10:44:00 Test Item Value Reference Range Interpretation Comments WBC (test code = See_Comment [Automated 6681-2) message] The sy stem which generated this result transmitted reference range : 4.20 - 10.70 10*3/?L. The reference range was not used to interpret this result as normal/abnormal . RBC (test code = See_Comment L [Automated 459-8) message] The sy stem which generated this [...] RDW-SD (test code = 41.7 fL 38.5-51.6 70327-7) RDW-CV (test code = 13.1 % 12.1-15.4 788-0) PLT (test code = See_Comment [Automated 057-3) message] The sy stem which generated this result transmitted reference range : 150 - 328 10*3/ ?L. The reference r batsheva was not used to interpret this result as normal/abnormal . MPV (test code = 10.0 fL 9.8-13 81443-3) NRBC/100 WBC (test See_Comment [Automat ed code = 9095013502) message] The system which generated this result transmitted reference range : 0.0 - 10.0 /100 WBCs. The refer ence range was not u sed to interpret th is result as normal/abnormal . NRBC x10^3 (test code <0.01 See_Comment [Auto mated = 4044877203) message] The s ystem which generated this result transmitted reference range : 10*3/?L. The reference range was not used to interpret this result as normal/abnormal . GRAN MAT (NEUT) % 55.8 % (test code = 770-8) IMM GRAN % (test code 0.30 % = 5214314744) LYMPH % (test code = 25.8 % 736-9) MONO % (test code = 12.7 % 5905-5) EOS % (test code = 4.8 % 713-8) BASO % (test code = 0.6 % 706-2) GRAN MAT x10^3(ANC) 3.52 10*3/uL 1.99-6.95 (test code = 5492658255) IMM GRAN x10^3 (test <0.03 0-0.06 code = 1905391806) LYMPH x10^3 (test code 1.63 10*3/uL 1.09-3.23 = 731-0) MONO x10^3 (test code 0.80 10*3/uL 0.36-1.02 = 742-7) EOS x10^3 (test code = 0.30 10*3/uL 0.06-0.53 711-2) BASO x10^3 (test code 0.04 10*3/uL 0.01-0.09 = 704-7) Lab Interpretation Abnormal (test code = 87386-5) [facility] GLUCOSE (AUTOMATED)2020-07-12 02:49:00 Test Item Value Reference Range Interpretation Comments POCT GLU (test code = 3596870233) 186 mg/dL 70-110 H Lab Interpretation (test code = Abnormal 55409-4) [facility]2020-07-12 02:49:00 Test Item Value Reference Range Interpretation Comments POCT GLU (test code = 6408919328) 213 mg/dL 70-110 H Lab Interpretation (test code = Abnormal 43883-0) [facility] HEAD WO [id number] 01:02:41 Impression: 1. ?Radiographically unremarkable unenhanced CAT scan of the head.Specifically, no Cat Scan evidence of acute infarcts, intracranial bleeds,or masses. ASPECTS score 10 out of 10 RL: 7423 AFC: [id number] Procedure: ? CT HEAD/BRAIN WO 7:02 PM Ordering physician: TARA CORONA Clinical [...] masses.ASPECTS score 10 out of 10RL: 7423AFC: [id number] signed by Elie Delacruz MD at 07/11/2020 7:02 [facility]2020-07-11 19:48:00 Test Item Value Reference Range Interpretation Comments POCT GLU (test code = 4916948957) 162 mg/dL 70-110 H Lab Interpretation (test code = Abnormal 38291-4) [facility] GLUCOSE (AUTOMATED)2020-07-11 17:04:00 Test Item Value Reference Range Interpretation Comments POCT GLU (test code = 6788395288) 171 mg/dL 70-110 H Lab Interpretation (test code = Abnormal 30936-9) [facility] GLUCOSE (AUTOMATED)2020-07-11 13:55:00 Test Item Value Reference Range Interpretation Comments POCT GLU (test code = 5114884861) 183 mg/dL 70-110 H Lab Interpretation (test code = Abnormal 95627-6) [facility]XR FOOT <3 VW [id number] 03:21:53 No acute osseous abnormality identified in the right foot. RL: 460 AFC: 93536 Electronically signedby Celia Koo MD, PhD at 07/10/2020 9:21 PMOrdering physician: JANETH GOODSON INDICATION: Right foot pain, history of diabetes, right foot wounds COMPARISON: None FINDINGS: 3 views of the right foot. No acute fracture or dislocation isappreciated. No osseous destructive lesion is seen to definitively suggestosteomyelitis. No definite soft tissue air is appreciated. [facility], Radiant Results Inft User - 07/10/2020 9:22 PM CSTOrdering physician: JANETH GOODSONINDICATION: Right foot pain, history of diabetes, right foot woundsCOMPARISON: NoneFINDINGS: 3 views of the right foot. No acute fracture or dislocation isappreciated. No osseous destructive lesion is seen to definitively suggestosteomyelitis. No definite soft tissue air is appreciated.IMPRESSIONNo acute osseous abnormality identified in the right foot.RL: 460AFC: [id number] signed by Celia Koo MD, PhD at 19:21 PM [facility] PointeSEDIMENTATION [id number] 03:09:00 Test Item Value Reference Range Interpretation Comments ESR (test code = >120 See_Comment H [Automated message] 0337564048) The system [employer] generated this result transmitted ref erence range: 0 - 10 m m/HR. The reference r batsheva was not used to interpret this result as normal/abnor mal. Lab Interpretation (test Abnormal code = 26228-7) [facility]inte[facility]OVID-[facility] (ID NOW RAPID TESTING)2020-07-11 02:31:00 Test Item Value Reference Range Interpretation Comments SARS-CoV-2 Rapid ID NOW Not Detected Not Detected (test code = 19257-6) DIANE (test code = DIANE) ID NOW COVID-19 Assay is an isothermal nucleic acid amplification test intended for the qualitative detection of nucleic acid from SARS-CoV-2 viral RNA in nasopharyngeal (SUPERVISOR [employer]ISING) specimens. It is used under Emergency Use [...] indicated. Lab Interpretation Normal (test code = 00389-7) [facility] (NA, K, CL, CO2, GLUCOSE, BUN, CREATININE, CA)2020-07-11 02:30:00 Test Item Value Reference Range Interpretation Comments NA (test code = 139 mmol/L 135-145 6437112971) K (test code = 3.5 mmol/L 3.5-5 3758238019) CL (test code = 106 mmol/L 98-108 5415299368) CO2 TOTAL (test code = 25 mmol/L 23-31 6449864772) AGAP (test code = 2-16 6841245810) BUN (test code = 11 mg/dL 7-23 1006540489) GLUCOSE (test code = 234 mg/dL 70-110 H 3603304863) CREATININE (test code = 0.76 mg/dL 0.6-1.25 2864135255) CALCIUM (test code = 8.5 mg/dL 8.6-10.6 L 4571074119) eGFR Calculation mL/min/1.73m2 (Non-) (test code = 7651923964) eGFR Calculation mL/min/1.73m2 () (test code = 1521737416) DIANE (test code = DIANE) Association of [...] tests). Lab Interpretation Abnormal (test code = 12026-2) [facility]inte[facility]atic Function Panel (ALB, T.PRO, BILI T, BU/BC, ALT, AST, ALK PHOS)2020-07-11 02:30:00 Test Item Value Reference Range Interpretation Comments TOTAL BILI (test code = 0974329767) 0.5 mg/dL 0.1-1.1 BILI UNCON (test code = 4121263842) 0.5 mg/dL 0.1-1.1 BILI CONJ (test code = 9168391948) 0.0 mg/dL 0-0.3 T PROTEIN (test code = 3367505268) 7.0 g/dL 6.3-8.2 ALBUMIN (test code = 0379893271) 3.8 g/dL 3.5-5 ALK PHOS (test code = 7960744504) 117 U/L 34-122 ALTv (test code = 1742-6) 8 U/L 5-50 AST(SGOT) (test code = 2650789901) 27 U/L 13-40 Lab Interpretation (test code = Normal 53966-1) [facility] PointeProthrombin Time (PT) / [id number] 02:25:00 Test Item Value Reference Range Interpretation [...] tions. Lab Interpretation (test Abnormal code = 48757-4) [facility]inteCB with [id number] 02:18:00 Test Item Value Reference Range Interpretation Comments WBC (test code = See_Comment [Automated 6490-2) message] The sy stem which generated this [...] RDW-SD (test code = 39.2 fL 38.5-51.6 50112-2) RDW-CV (test code = 12.9 % 12.1-15.4 788-0) PLT (test code = See_Comment [Automated 777-3) message] The sy stem which generated this result transmitted reference range : 150 - 328 10*3/ ?L. The reference r batsheva was not used to interpret this result as normal/abnormal . MPV (test code = 9.4 fL 9.8-13 L 04826-6) NRBC/100 WBC (test See_Comment [Automat ed code = 5602287052) message] The system which generated this result transmitted reference range : 0.0 - 10.0 /100 WBCs. The refer ence range was not u sed to interpret th is result as normal/abnormal . NRBC x10^3 (test code <0.01 See_Comment [Auto mated = 7938026030) message] The s ystem which generated this result transmitted reference range : 10*3/?L. The reference range was not used to interpret this result as normal/abnormal . GRAN MAT (NEUT) % 62.1 % (test code = 770-8) IMM GRAN % (test code 0.50 % = 7811231406) LYMPH % (test code = 23.3 % 736-9) MONO % (test code = 9.8 % 5905-5) EOS % (test code = 3.8 % 713-8) BASO % (test code = 0.5 % 706-2) GRAN MAT x10^3(ANC) 4.04 10*3/uL 1.99-6.95 (test code = 8582347607) IMM GRAN x10^3 (test 0.03 10*3/uL 0-0.06 code = 6440283759) LYMPH x10^3 (test code 1.52 10*3/uL 1.09-3.23 = 731-0) MONO x10^3 (test code 0.64 10*3/uL 0.36-1.02 = 742-7) EOS x10^3 (test code = 0.25 10*3/uL 0.06-0.53 711-2) BASO x10^3 (test code 0.03 10*3/uL 0.01-0.09 = 704-7) Lab Interpretation Abnormal (test code = 08101-0) [facility] GLU[facility]SE (AUTOMATED)2020-06-02 18:02:00 Test Item Value Reference Range Interpretation Comments POCT GLU (test code = 2404293723) 162 mg/dL 70-110 H Lab Interpretation (test code = Abnormal 73896-2) [facility]. METABOLIC PANEL (49244)2020-06-02 14:48:00 Test Item Value Reference Range Interpretation Comments NA (test code = 136 mmol/L 135-145 7514283213) K (test code = 4.7 mmol/L 3.5-5 8514907891) CL (test code = 105 mmol/L 98-108 3157533015) CO2 TOTAL (test code = 25 mmol/L 23-31 6870153456) AGAP (test code = 2-16 7331465234) BUN (test code = 17 mg/dL 7-23 6785195150) GLUCOSE (test code = 134 mg/dL 70-110 H 6692742918) CREATININE (test code = 0.80 mg/dL 0.6-1.25 7377579184) TOTAL BILI (test code = 0.3 mg/dL 0.1-1.6 8990969428) CALCIUM (test code = 8.3 mg/dL 8.6-10.6 L 2578336566) T PROTEIN (test code = 6.1 g/dL 6.3-8.2 L 3022611627) ALBUMIN (test code = 3.1 g/dL 3.5-5 L 2256116414) ALK PHOS (test code = 175 U/L 34-122 H 4268323950) ALTv (test code = 39 U/L 5-50 1742-6) AST(SGOT) (test code = 34 U/L 13-40 9130299765) eGFR Calculation mL/min/1.73m2 (Non-) (test code = 7814439229) eGFR Calculation mL/min/1.73m2 () (test code = 8032643260) DIANE (test code = DIANE) Association of [...] tests). Lab Interpretation Abnormal (test code = 34025-1) [facility] GLUCOSE (AUTOMATED)2020-06-02 14:15:00 Test Item Value Reference Range Interpretation Comments POCT GLU (test code = 4782000284) 123 mg/dL 70-110 H Lab Interpretation (test code = Abnormal 75646-6) [facility] GLUCOSE (AUTOMATED)2020-06-02 12:41:00 Test Item Value Reference Range Interpretation Comments POCT GLU (test code = 1098262194) 158 mg/dL 70-110 H Lab Interpretation (test code = Abnormal 45368-9) [facility] PointePROTHROMBIN TIME / [id number] 11:40:00 Test Item Value Reference Range Interpretation [...] tions. Lab Interpretation (test Abnormal code = 67101-5) [facility]inteCB WITH [id number] 11:03:00 Test Item Value Reference Range Interpretation Comments WBC (test code = See_Comment [Automated 7090-2) message] The sy stem which generated this [...] RDW-SD (test code = 47.8 fL 38.5-51.6 43623-1) RDW-CV (test code = 14.9 % 12.1-15.4 788-0) PLT (test code = See_Comment [Automated 777-3) message] The sy stem which generated this result transmitted reference range : 150 - 328 10*3/ ?L. The reference r batsheva was not used to interpret this result as normal/abnormal . MPV (test code = 9.9 fL 9.8-13 70830-5) NRBC/100 WBC (test See_Comment [Automat ed code = 8396557464) message] The system which generated this result transmitted reference range : 0.0 - 10.0 /100 WBCs. The refer ence range was not u sed to interpret th is result as normal/abnormal . NRBC x10^3 (test code <0.01 See_Comment [Auto mated = 5772520270) message] The s ystem which generated this result transmitted reference range : 10*3/?L. The reference range was not used to interpret this result as normal/abnormal . GRAN MAT (NEUT) % 50.3 % (test code = 770-8) IMM GRAN % (test code 0.40 % = 4300764918) LYMPH % (test code = 30.5 % 736-9) MONO % (test code = 11.0 % 5905-5) EOS % (test code = 7.4 % 713-8) BASO % (test code = 0.4 % 706-2) GRAN MAT x10^3(ANC) 2.71 10*3/uL 1.99-6.95 (test code = 9512021630) IMM GRAN x10^3 (test <0.03 0-0.06 code = 1183461131) LYMPH x10^3 (test code 1.64 10*3/uL 1.09-3.23 = 731-0) MONO x10^3 (test code 0.59 10*3/uL 0.36-1.02 = 742-7) EOS x10^3 (test code = 0.40 10*3/uL 0.06-0.53 711-2) BASO x10^3 (test code <0.03 0.01-0.09 = 704-7) Lab Interpretation Abnormal (test code = 21858-0) [facility] GLUCOSE (AUTOMATED)2020-06-02 10:52:00 Test Item Value Reference Range Interpretation Comments POCT GLU (test code = 8550099821) 141 mg/dL 70-110 H Lab Interpretation (test code = Abnormal 90145-0) [facility] GLUCOSE (AUTOMATED)2020-06-02 02:35:00 Test Item Value Reference Range Interpretation Comments POCT GLU (test code = 9916914540) 154 mg/dL 70-110 H Lab Interpretation (test code = Abnormal 57032-6) [facility] GLUCOSE (AUTOMATED)2020-06-01 23:15:00 Test Item Value Reference Range Interpretation Comments POCT GLU (test code = 9740355139) 72 mg/dL 70-110 Lab Interpretation (test code = Normal 76487-1) [facility] GLUCOSE (AUTOMATED)2020-06-01 23:15:00 Test Item Value Reference Range Interpretation Comments POCT GLU (test code = 6402003929) 109 mg/dL 70-110 Lab Interpretation (test code = Normal 01544-9) [facility] GLUCOSE (AUTOMATED)2020-06-01 13:49:00 Test Item Value Reference Range Interpretation Comments POCT GLU (test code = 1950400964) 115 mg/dL 70-110 H Lab Interpretation (test code = Abnormal 68416-4) [facility] GLUCOSE (AUTOMATED)2020-06-01 02:57:00 Test Item Value Reference Range Interpretation Comments POCT GLU (test code = 0509441830) 84 mg/dL 70-110 Lab Interpretation (test code = Normal 44875-6) [facility] GLUCOSE (AUTOMATED)2020-05-31 23:10:00 Test Item Value Reference Range Interpretation Comments POCT GLU (test code = 8879565161) 115 mg/dL 70-110 H Lab Interpretation (test code = Abnormal 48020-2) [facility] ONLY COVID [id number] 20:03:00COVID DMT InterpretationInterpretation/Recommendations: Molecular NAAT Tests for Active Infection with the SARS-CoV-2 Virus: This patient has a history of testing negative on multiple occasions for eqgXOJB-EqJ-3 virus that causes COVID-19 illness. The current [...] COVID-19 testing the patient has had at [facility], including molecular NAAT testing (more commonly known as PCR testing and Rapid ID Now testing) and antibody testing. It does not take into account any testing that a patient has had outside of the [facility] medical record. [facility] LABORATORY SERVICESCOVID BwzxhltZWWE-FuC-8 Rapid ID NOW (no units) ? ? Date ? Value ? 05/29/2020 ? NotDetected ? ? ? 03/16/2020 ? Not Detected ? ? ? 02/03/2020 ? Not Detected ? ? ? 11/16/2019 ? Not Detected ? ? ? 09/17/2019 ? Not Detected ? [facility] SERVICESUn[facility]PO[facility] ([facility])2020-05-31 18:06:00 Test Item Value Reference Range Interpretation Comments POCT GLU (test code = 5986461288) 155 mg/dL 70-110 H Lab Interpretation (test code = Abnormal 52388-2) [facility] ([facility]OMATED)2020-05-31 18:06:00 Test Item Value Reference Range Interpretation Comments POCT GLU (test code = 2805380036) 124 mg/dL 70-110 H Lab Interpretation (test code = Abnormal 71849-5) [facility]intePROTHROMBIN TIME / [id number] 12:46:00 Test Item Value Reference Range Interpretation Comments PROTIME PATIENT (test See_Comment H [Auto mated message] code = 5964-2) The system [employer] generated this result transmitted ref erence range: 12.0 - 1 4.7 Seconds. The reference range was not used to int erpret this result as normal/abnormal . INR (test code = 6301-6) Nor mal INR <1.1; Warfarin Therap eutic range 2.0 to 3. 0 or 2.5 to 3.5, dep ending upon the indica tions. Lab Interpretation (test Abnormal code = 06410-9) [facility] (NA, K, CL, CO2, GLUCOSE, BUN, CREATININE, CA)2020-05-31 11:30:00 Test Item Value Reference Range Interpretation Comments NA (test code = 135 mmol/L 135-145 9524275810) K (test code = 4.3 mmol/L 3.5-5 5062614180) CL (test code = 106 mmol/L 98-108 1151335153) CO2 TOTAL (test code = 22 mmol/L 23-31 L 2677162524) AGAP (test code = 2-16 8849947018) BUN (test code = 16 mg/dL 7-23 1812796268) GLUCOSE (test code = 105 mg/dL 70-110 0938982711) CREATININE (test code = 0.59 mg/dL 0.6-1.25 L 5426214949) CALCIUM (test code = 8.3 mg/dL 8.6-10.6 L 4711198760) eGFR Calculation mL/min/1.73m2 (Non-) (test code = 0770356553) eGFR Calculation mL/min/1.73m2 () (test code = 6816281650) DIANE (test code = DIANE) Association of [...] tests). Lab Interpretation Abnormal (test code = 48484-2) [facility] WITH [id number] 11:17:00 Test Item Value Reference Range Interpretation Comments WBC (test code = See_Comment [Automated 1610-2) message] The sy stem which generated this result transmitted reference range : 4.20 - 10.70 10*3/?L. The reference range was not used to interpret this result as normal/abnormal . RBC (test code = See_Comment L [Automated 834-8) message] The sy stem which generated this [...] RDW-SD (test code = 46.5 fL 38.5-51.6 59411-0) RDW-CV (test code = 14.5 % 12.1-15.4 788-0) PLT (test code = See_Comment [Automated 777-3) message] The sy stem which generated this result transmitted reference range : 150 - 328 10*3/ ?L. The reference r batsheva was not used to interpret this result as normal/abnormal . MPV (test code = 10.2 fL 9.8-13 43254-9) NRBC/100 WBC (test See_Comment [Automat ed code = 7022032710) message] The system which generated this result transmitted reference range : 0.0 - 10.0 /100 WBCs. The refer ence range was not u sed to interpret th is result as normal/abnormal . NRBC x10^3 (test code <0.01 See_Comment [Auto mated = 6629956759) message] The s ystem which generated this result transmitted reference range : 10*3/?L. The reference range was not used to interpret this result as normal/abnormal . GRAN MAT (NEUT) % 54.6 % (test code = 770-8) IMM GRAN % (test code 0.40 % = 9497366127) LYMPH % (test code = 27.0 % 736-9) MONO % (test code = 8.3 % 5905-5) EOS % (test code = 9.3 % 713-8) BASO % (test code = 0.4 % 706-2) GRAN MAT x10^3(ANC) 3.10 10*3/uL 1.99-6.95 (test code = 1753394627) IMM GRAN x10^3 (test <0.03 0-0.06 code = 5805201109) LYMPH x10^3 (test code 1.53 10*3/uL 1.09-3.23 = 731-0) MONO x10^3 (test code 0.47 10*3/uL 0.36-1.02 = 742-7) EOS x10^3 (test code = 0.53 10*3/uL 0.06-0.53 711-2) BASO x10^3 (test code <0.03 0.01-0.09 = 704-7) Lab Interpretation Abnormal (test code = 48578-2) [facility] GLUCOSE (AUTOMATED)2020-05-31 03:18:00 Test Item Value Reference Range Interpretation Comments POCT GLU (test code = 6258433898) 80 mg/dL 70-110 Lab Interpretation (test code = Normal 05142-0) [facility] GLUCOSE (AUTOMATED)2020-05-30 23:30:00 Test Item Value Reference Range Interpretation Comments POCT GLU (test code = 3137908778) 98 mg/dL 70-110 Lab Interpretation (test code = Normal 01707-9) [facility] GLUCOSE (AUTOMATED)2020-05-30 19:00:00 Test Item Value Reference Range Interpretation Comments POCT GLU (test code = 1812539015) 153 mg/dL 70-110 H Lab Interpretation (test code = Abnormal 49971-2) [facility] GLUCOSE (AUTOMATED)2020-05-30 14:44:00 Test Item Value Reference Range Interpretation Comments POCT GLU (test code = 3544671734) 179 mg/dL 70-110 H Lab Interpretation (test code = Abnormal 90358-6) [facility] Metabolic Panel (NA, K, CL, CO2, GLUCOSE, BUN, CREATININE, CA)2020-05-30 12:44:00 Test Item Value Reference Range Interpretation Comments NA (test code = 136 mmol/L 135-145 3555204853) K (test code = 4.0 mmol/L 3.5-5 7806031535) CL (test code = 106 mmol/L 98-108 6922672966) CO2 TOTAL (test code = 25 mmol/L 23-31 7531337142) AGAP (test code = 2-16 5817414669) BUN (test code = 14 mg/dL 7-23 9371395530) GLUCOSE (test code = 179 mg/dL 70-110 H 5411208011) CREATININE (test code = 0.68 mg/dL 0.6-1.25 6138781624) CALCIUM (test code = 8.2 mg/dL 8.6-10.6 L 9309261249) eGFR Calculation mL/min/1.73m2 (Non-) (test code = 3259717653) eGFR Calculation mL/min/1.73m2 () (test code = 1674539586) DIANE (test code = DIANE) Association of [...] tests). Lab Interpretation Abnormal (test code = 41199-4) [facility] with Iiwyozboaidx5525-47-53 12:29:00 Test Item Value Reference Range Interpretation [...] RDW-SD (test code = 45.6 fL 38.5-51.6 23600-9) RDW-CV (test code = 14.6 % 12.1-15.4 788-0) PLT (test code = See_Comment [Automated 777-3) message] The sy stem which generated this result transmitted reference range : 150 - 328 10*3/ ?L. The reference r batsheva was not used to interpret this result as normal/abnormal . MPV (test code = 10.4 fL 9.8-13 74270-5) NRBC/100 WBC (test See_Comment [Automat ed code = 2642825991) message] The system which generated this result transmitted reference range : 0.0 - 10.0 /100 WBCs. The refer ence range was not u sed to interpret th is result as normal/abnormal . NRBC x10^3 (test code <0.01 See_Comment [Auto mated = 8689495978) message] The s ystem which generated this result transmitted reference range : 10*3/?L. The reference range was not used to interpret this result as normal/abnormal . GRAN MAT (NEUT) % 71.1 % (test code = 770-8) IMM GRAN % (test code 0.40 % = 9284704359) LYMPH % (test code = 16.1 % 736-9) MONO % (test code = 6.8 % 5905-5) EOS % (test code = 5.2 % 713-8) BASO % (test code = 0.4 % 706-2) GRAN MAT x10^3(ANC) 4.93 10*3/uL 1.99-6.95 (test code = 8001288945) IMM GRAN x10^3 (test 0.03 10*3/uL 0-0.06 code = 3642567182) LYMPH x10^3 (test code 1.12 10*3/uL 1.09-3.23 = 731-0) MONO x10^3 (test code 0.47 10*3/uL 0.36-1.02 = 742-7) EOS x10^3 (test code = 0.36 10*3/uL 0.06-0.53 711-2) BASO x10^3 (test code 0.03 10*3/uL 0.01-0.09 = 704-7) Lab Interpretation Abnormal (test code = 40289-2) [facility] GLUCOSE (AUTOMATED)2020-05-30 02:46:00 Test Item Value Reference Range Interpretation Comments POCT GLU (test code = 4157118326) 174 mg/dL 70-110 H Lab Interpretation (test code = Abnormal 99950-6) [facility] GLUCOSE (AUTOMATED)2020-05-30 02:18:00 Test Item Value Reference Range Interpretation Comments POCT GLU (test code = 6250498783) 276 mg/dL 70-110 H Lab Interpretation (test code = Abnormal 64146-5) [facility] / [id number] 02:13:00 Test Item Value Reference Range Interpretation Comments PROTIME PATIENT (test See_Comment [Auto mated message] code = 5964-2) The system [employer] generated this result transmitted ref erence range: 12.0 - 1 4.7 Seconds. The re ference range was not u sed to interpret this result as normal/abnor mal. INR (test code = 6301-6) Nor mal INR <1.1; Warfarin Therap eutic range 2.0 to 3. 0 or 2.5 to 3.5, dep ending upon the indica tions. Lab Interpretation (test Normal code = 27667-9) [facility] Whole [id number] 02:00:00 Test Item Value Reference Range Interpretation Comments LACTIC ACID (test code = 1.39 mmol/L 9447751571) [facility]OVID[facility] (ID NOW RAPID TESTING)2020-05-29 20:21:00 Test Item Value Reference Range Interpretation Comments SARS-CoV-2 Rapid ID NOW Not Detected Not Detected (test code = 38765-9) DIANE (test code = DIANE) ID NOW COVID-19 Assay is an isothermal nucleic acid amplification test intended for the qualitative detection of nucleic acid from SARS-CoV-2 viral RNA in nasopharyngeal ([employer]) specimens. It is used under Emergency Use [...] indicated. Lab Interpretation Normal (test code = 56920-0) [facility]inteXR FOOT <3 VW [id number] 18:08:54 1. ?Lucency fifth metatarsal head suspicious [...] fifth metatarsal head suspicious for osteomyelitis.RL: 1105 [facility] CampusXR FEMUR 2 VW [id number] 18:07:42 Impression: Osteopenia. Left knee osteoarthritis. Osteochondroma. No acute bony abnormality identified. End of Report. RL: 5500 Ordering Physician: ROSA M GALVAN. Procedure: XR FEMUR 2 VW LEFT Comparison: None. History: osteo . Findings: Moderate osteopenia limits evaluation for bony pathology. There has been kuxqxr-vaa-rfcb amputation. Tsfr-re-hslsgzpj tricompartmental left knee osteoarthritis. No fracture, dislocation, or bony erosionis seen. There is a focal bony excrescence off the lateral left femoral diaphysisappearing contiguous with the medullary cavity measuring 1.2 x 0.3 cmlikely reflecting an osteochondroma. Clinical correlation recommended. [facility], Radiant Results Inft User - 05/29/2020 12:08 PM CSTOrdering Physician: ROSA M GALVAN.Procedure: XR FEMUR 2 VW LEFTComparison: None.History: osteo . Findings:Moderate osteopenia limits evaluation for bony pathology. There has been zybntn-pnk-tprm amputation.Bsvp-cy-odmnyykt tri compartmental left knee osteoarthritis.No fracture, dislocation, or bony erosion is seen.There is a focal bony excrescence off the lateral left femoral diaphysisappearing contiguous with the medullary cavity measuring 1.2 x 0.3 cmlikely reflecting an osteochondroma. Clinical correlation recommended.IMP RESSIONImpression:Osteopenia.Left knee osteoarthritis.Osteochondroma.No acute bony abnormality identified.End of Report.RL: 5500 UnThe [facility] CampusCOMP. METABOLIC PANEL ([id number])2020-05-29 16:35:00 Test Item Value Reference Range Interpretation Comments NA (test code = 134 mmol/L 135-145 L 9232776230) K (test code = 4.3 mmol/L 3.5-5 1181007280) CL (test code = 103 mmol/L 98-108 5064671523) CO2 TOTAL (test code = 21 mmol/L 23-31 L 8418875039) AGAP (test code = 2-16 9768388481) BUN (test code = 14 mg/dL 7-23 2463848709) GLUCOSE (test code = 372 mg/dL 70-110 H 9957199892) CREATININE (test code = 0.61 mg/dL 0.6-1.25 6967374291) TOTAL BILI (test code = 0.6 mg/dL 0.1-1.5 4033986646) CALCIUM (test code = 9.1 mg/dL 8.6-10.6 9691211351) T PROTEIN (test code = 7.6 g/dL 6.3-8.2 2948974473) ALBUMIN (test code = 4.1 g/dL 3.5-5 6535068267) ALK PHOS (test code = 126 U/L 34-122 H 7573461506) ALTv (test code = 11 U/L 5-50 1742-6) AST(SGOT) (test code = 24 U/L 13-40 9181170600) eGFR Calculation mL/min/1.73m2 (Non-) (test code = 2217654861) eGFR Calculation mL/min/1.73m2 () (test code = 9012848493) DIANE (test code = DIANE) Association of [...] tests). Lab Interpretation Abnormal (test code = 72265-4) [facility] WITH [id number] 16:28:00 Test Item Value Reference Range Interpretation [...] RDW-SD (test code = 45.1 fL 38.5-51.6 11040-2) RDW-CV (test code = 14.4 % 12.1-15.4 788-0) PLT (test code = See_Comment [Automated 777-3) message] The sy stem which generated this result transmitted reference range : 150 - 328 10*3/ ?L. The reference r batsheva was not used to interpret this result as normal/abnormal . MPV (test code = 10.9 fL 9.8-13 16457-7) NRBC/100 WBC (test See_Comment [Automat ed code = 3485965550) message] The system which generated this result transmitted reference range : 0.0 - 10.0 /100 WBCs. The refer ence range was not u sed to interpret th is result as normal/abnormal . NRBC x10^3 (test code <0.01 See_Comment [Auto mated = 1151308115) message] The s ystem which generated this result transmitted reference range : 10*3/?L. The reference range was not used to interpret this result as normal/abnormal . GRAN MAT (NEUT) % 62.2 % (test code = 770-8) IMM GRAN % (test code 0.70 % = 8361328869) LYMPH % (test code = 23.2 % 736-9) MONO % (test code = 7.4 % 5905-5) EOS % (test code = 6.0 % 713-8) BASO % (test code = 0.5 % 706-2) GRAN MAT x10^3(ANC) 4.99 10*3/uL 1.99-6.95 (test code = 8666278895) IMM GRAN x10^3 (test 0.06 10*3/uL 0-0.06 code = 5124032196) LYMPH x10^3 (test code 1.86 10*3/uL 1.09-3.23 = 731-0) MONO x10^3 (test code 0.59 10*3/uL 0.36-1.02 = 742-7) EOS x10^3 (test code = 0.48 10*3/uL 0.06-0.53 711-2) BASO x10^3 (test code 0.04 10*3/uL 0.01-0.09 = 704-7) Lab Interpretation Abnormal (test code = 69374-6) [facility]inteLam[facility] Acid Whole [id number] 15:58:00 Test Item Value Reference Range Interpretation Comments LACTIC ACID (test code = 2.60 mmol/L 6387137311) [facility] GLUCOSE (AUTOMATED)2020-03-26 22:39:00 Test Item Value Reference Range Interpretation Comments POCT GLU (test code = 4209604482) 245 mg/dL 70-110 H Lab Interpretation (test code = Abnormal 98358-5) [facility] GLUCOSE (AUTOMATED)2020-03-26 19:02:00 Test Item Value Reference Range Interpretation Comments POCT GLU (test code = 2957037794) 158 mg/dL 70-110 H Lab Interpretation (test code = Abnormal 75942-5) [facility]SURGICAL PATHOLOGY [id number] 16:56:00 Test Item Value Reference Range Interpretation Comments Case Report (test code Surgical Pathology ? ? = 1609521202) ?Case: [id number] ? Authorizing Provider: ?Tato Shearer MD ? Collected: ? 03/18/2020 1516 ?Ordering Location: ? ? [facility] OR ? Received: ?03/18/2020 1653 ? Department ? Pathologist: ? Des Pond MD PHD ?Specimen: ? ?LEG, LEFT, BELOW KNEE, left leg BKA ? Final Diagnosis (test d9ttdOLfYFTpy8ioPPQmwO code = 0236366903) FuZzEwMzNcZnRuYmpcdWMx RGhpnlRwVVvhe2PsR0GgFn AwMFxhbnNpXGRlZmxhbmcx DTRlYQN9juWcWMShKEtiKV SgIXrmXk9wuHXapOriAwOg RPYzi3ifmzPKnntxtVh8f2 hhKWUhOaW2mWYnTGylZ8qa jtNxoAGsVFLuOSj2hPpxHc OmPKLil4Vaab2pXXOfiVVf v6O3JRCMo3SkjABcFJ0hjt i6pVkpL38oa6M4CxjtK6vx ZWQwXGdyZWVuMFxibHVlMC S5KDQoPLE2OLobszMbigA4 HUsotNCrVaW6XWa4s6vuwD gaYIAvQSX3e2sfQTrlooBb KZ8tkp1trIr0g9bzomBeXT XcLUXbwIYASDMtV3DvuKzy As1pdLo1zNsxLnnkLVZ3Zt x5VO7gxp56bnl7fEyjKKLs rmvgYoZ6VNetFHOrbjkvHM x0OAlxDGGywUTnIZIulVIb L5TxCXieFV0yxts7MtNfTJ 0oymebSOvdHRGdFIH2AyBm UQLpe2ZjyhhvYeLabs3vqb 10ATJ1y3SdfGjbCPH6VMG9 OqGlXi9xtWNmTNDgTE0jOq SscCMeIHYiwu34yHxjWJfv asKcjT1vWiWhVOLyvAToRC RkEKFtR5dqRcCklnFuH4zz H8XvTCXdZRFaETYrHyKdzg Fcf9Hrnf38EVMpltTbh4To kYVujWk0c8dcIVHuVTRdhZ eqq2ejRCW2QWVbV7Q1xDNw y8wpGFigRCYrlNG1gwNsAA PubTHjR4GmeE3gZXcbJA2q uvd2w2qsPwYqNS5gzuzkv9 ngKTurACRrPFI7JrQtHSNi d5ZpugqfRyMsg5XdaNDgGI hnQ79lo172PPGbkvVrA3sf bGFpblxwbGFpblxmMFxmcz IwXHFsXHBsYWluXGYwXGZz YxGanNfkbG3zGuCeFjDdCX xwYXJcbHRycGFyXHFsXHBs YWluXGYwXGZzMjBccGxhaW 5cZjFcZnMyMCBBLiBMRUZU WMuMHmnjHkNUT7joH50BLR lmBI4KRYBEXJqPUviubUbm xQ3pMoHiKtFjUEtmPK0oGL JaI1hmdRTpBJDpSUWoS1mt GtRgzR5ebFdkZihjHgQeEx UdGBlaEJSreAtjhE8qIcMa HyLoSOTvFDUdDN2vCYPILN CPTXNsR0RGL1STEtUxZ1mC AWTXTKFFHCmwHWPCR4IWKc LZT3FROJXBN06siBjleA5m JcQiUrSyMMupAU4tLOQdU3 xozZLmCLXtCYXtA6lxXlKt mQ2qzXtmWjotXrCpCxCkXD ipHUPkpYvpsF6xOgDfDxEr XNUwAEArMH0pBvMXB1BVMj BXSVRIIFNFVkVSRSBNRURJ TFjrHPrRUKPPEh8GXHpqQJ 2UOIwUJDhEMNtzG7KLLn9N SVNccGFyICAgICAgLSBOTy BJR1YRX36GTFuFOAjACKuN YZ5OEWNHHKNsUMAxJUeyQT YyXGZzMjBcbGFuZzEwMzNc aGljaFxmMlxkYmNoXGYyXG zkP3ixMkDhM1TnPDVtNnLg xXViRUNgbfXlk0LbCFVpTM O9EUqoGMlpuDkuzVWilmjf MFxmczIwXHBsYWluXGYxXG UrFmXkQIAjTHVuTYNVL4BE JQxGQcXGORFSYU9UMVYDYR JMRVxwYXJccGFyXHBsYWlu XGYxXGZzMjJcbGFuZzEwMz NcaGljaFxmMVxkYmNoXGYx KMkpO7leFoZmD7RkZDIfDf OnSElzn6XbsmdjECHjBC7B LIGnJY55CtJqEjXxHMa8XB CnNU7srWaerE2mNwFjRvIg OMhiWSBmxGVnBUUkni06KC S1ZhMmm8L6KUObMbTrTOTq BV4lqCxkZZTwXG4dYSRnV9 fehN2qvyn6QyXkRWYcHxE3 LPSddfV5Jma4DBMqXIsvj9 upj1CoI5OpvKAxhQu8g9em SEIxBuQ3wXKiVLwpI2xklq CnbRGbZVDrMEq5wDcmIxYp EDKtt7jqtyOzIhRxJBRsVV LtQCGgfDdnftz9aD80TDWc aD5qyKFeWBcasyFmGkX2VA nqHTReVmF7BNIjvGVzOKLm D5fsVQTuGDqbWWGfDKkamF YbOUV7oPdlt7G2eKHmlHJg wYvjWxSuCgViILAUn1RzKF f8yRfzV6FsSWQnUfH6yEZf MPWpATriLCEuHNVaanO7nP 01OIjqpyW2eWCoc4Zex55c g261kB5whQEbWJT9IPNeQP BzaSUiFFTiBWC0VSXppEAd X5vxFSRtRD5jtpinMYrqBS joEYCrnTW4ILHpnJSoY4Nh LTZpXAxbQDRdfae7RcZyEz 3woISydEkxSGquv9kgy5ao qOHkVwn2DUKgGvIsGsdwPA fpb9Nhc5qvOIUalr9qGLN3 fZQhpVazp6D0yHVeWTNvcY QlccQmQDBkOeY8DLxwJS6o fb14PXYeEBF2no1xgKTyhZ bhadOqeUUcTRnuF1DyKSOc j740WFJbN5YgWJPpj1K7ve EgLwMxLNYuoWC5agV3AIAf JCj5fZOikqU4xrEwnZOyH4 mkwS0iHHBuHF7wheode4nr XKcxCGizEAXnxTY8djH5QN AqsAGjS2MahY4gGGBiWJck HGMnnta1BlNnPe3bsDXnuL cyMFxzYmtwYWdlXHBnbmNv bnRccGduZGVjXHBsYWluXH BsYWluXGYwXGZzMjRccWxc jMkjvI2vJvKdCaGiZDjaQM 8vQDOoT7druXEwYHXpAUZb C8yrIfDuuS3ilJyoDWtiFo JcZnMyMFxwYXIgSSBoYXZl XWZiqjKzddZiiIrkcjK6gK T5ZCWuXVxpSMCdDZXamFTu pu2agKxtVSOfVO2mNWYzaq AxLEfqlFzxZMufCAW1PZQj bWVudHMgbWFkZSBieSByZX MiMOGyaSYaJKSxuOahb7Ob l8HkbCB9lZ6xw7mjw3QsCJ UgmLR7CD67chD0mN7uLCPp JY5aXQGgAJ1pnADkyOLjVA Akw16ewUmlhhQbAUUjyfWf XHBsYWluXGYyXGZzMjhcbG FuZzEwMzNcaGljaFxmMlxk YoVoUCOuBCvuY9blEhXoYu XuMMecKCA1rX== Clinical Information Left foot pain (test code = [M79.672] 0278381187) Gross Description (test r2mmxOOrVGKlpWKwNcUdZD code = 3465803400) TvVEMsq5bcZUXzvRIqOzDs MzNcZnRuYmpcdWMxXGRlZm Lva5ryb900pYLzh3mwPHLn EeC0qVXeSCHmdTIpW218BH QrMCxme3xsp7GbJAPtrSPt b2U5ATPVbsoklJu4hTwkZ8 3xw6U3IxllK5jiPDLeSKDd R4OhMI0uNVCfYmz3DJQ3TD W2IDEhYHVrL7AtHD7oTXUv pGJkGRd2y1cbzFmkEFZpHJ N4e2wwNJtsixGbHN5zxk7h eZe6b4qgrzMsRRTqPSUabF DFJWBgE5XguQipAn2ssTl1 xHwvUiypSXX5Qbp4IH3xym 66fqu7pSnkEZVhsfkmPhP6 NZneXFHvhgbxETv0FVwaPO JajPFcCNCewKQxA1FcISqz JJ3step0HgEvAL0jhhdnMC azVIPnJCO5OlGaQCGjc3Zq rcpjNyBrlk9dnn03FZL9g8 EjvYtlXUP3ZEN3AzVuBv8o hFWxZLDkFX8tXtEvrFKmKV Ouoq68jQcrOSybhjTuuT8s NfGcTGPytZCgQBEhKG9imC ToXATreQ7onlvsABNyXrOa bxqeAAGvoJjxoiTkAh4kdQ kxUJV3GKdqE9rgjN1vTjQ5 XJbwZ1olkS4kHLg8SGpgbX K4AJHvlB4zIH3nlftog7lm SKJ5DMxjSNQlqnP6zlApAI DhcSWvL8TieE44PqAaxMHn C5KgrL7rSMdoOSLrywa1Kk IsMs8pwWXrrJX5YDviEjez YWdlXHBnbmNvbnRccGduZG VjXHBsYWluXHBsYWluXGYw EEYeQvXkwOociJwatR9vCx YzInHjAGcuXH6yJYEjB2rh uQDwACDdGDYmI7viAkZbsM 9jaFxmMVxmczIwIFNwZWNp xNNkRWQmzNDauuNjBVk3ST RoRmCjy6ggoDXwSNhxTYI4 xXBrRTZfRCKyUNMiVB27W9 MgbmFtZSwgVUggbnVtYmVy HAUprTPoQGHgGMK8ZFFxMP sxeaZawwFiXGGzQNF4QXll ZkTOV5ReQWReCOCyd78qrM Z0gvVdEfIqrzTflPO1cCE8 GBVzzGIsjYQCY1AlWVizKF lqjT8csU0oPfJcSQ4pKVKa VJowZHlscwx0qNwsaQQnmT B2mhDwg5G9ZPWww3Dhu4qp xmZrsiTrf72soVI0hBWuzC KabsTyRWP8fI3vRA8ehthy bjogMjAuMCBjbSBpbiBsZW 5kbKluWZfsqVfcWJTofe9v y9u4VWLddcEfCXZiSPWpBY dghbDtgV6pTPRmhJ2sQNKq ZXMuIFRoZSBhbnRlcmlvci Xxf4eqAAVqc2QohJvzakLo HKNioP9qXSy2JQ0peyDiMZ 9mYJBeROMni3jvrSObSYRn l24bpZwlPUDtm6Jfnmeccu Pij9fuUWPdDMCto6V7SAHm y2C8VRYaEAQqF0Cnf83leB XnF8lnKsSUyRNgwRcmeXXm FSToukOuhfNaPZQ8bR4jZQ 9pwybypjPvggPjBI59XOOx AJkbQWcpqzx4xBAcbgMzwD hlIGZpYnVsYXIgcmVzZWN0 qX4zHQ3ncscwajBtwNTfth UuUSWvYNIwjSQivx84tX6l oNNtyt0iPPGqOKG2nVIyYA iekvSaNFP1jW9wOM9cixus ky6cOZOdusuaCKSbNYopOO QjEXZumDUbQEedRKO9qwAm C3SgPwujuXDwTDJjs9yaUV PcJGcgJzPjqoapYabgv6pr E9h9dRsyYJIjnGW1i7JkIY SwuP9il8v3hRYsERRqgKUf PD0rBWMaXNIpAS7hihzrQO OwlaFoc07sVnRgMAL6BOG4 m27nn82lbKjyFR3fJWqdhN KnnfStuUV2LRDysQGee4To K6Gar0ZnaXxdXNjuLe8xST rkeyBmbQQzZKLzjh89ll1i cVWuhdvqOYZdo9yrUN6xIL 1qI6YjoOzeCIFrQYSxB6Jf bHkgdWxjZXJhdGVkIGFyZW EbOJFeQBklXv7dEQMoREO2 uLJmFMWjtCMjau1fzXRujG fevHEqDKpzyL1nGUBiRUTi xuZ3jNMahY8lwTTlne5kPH QnzdJgOFAlIWGzLAcrCS2m ABYoTT85IFLqFHMdSXE1BT 9qAIZfMMZsFHHrCHHvQo5c JQMxRXIyx77ztXzdFSMtu4 OmrzwryrMfy3laBSCzu7Vj dCbccqSxJYUebV8iFAKqhA FyXHBhciBUaGUgdWxjZXJh yFIzJRInYH66tZ3lVtszUE WbhbKwLXwuOPQmF1Qjf31g WHM6meYuIGKrPWrozdNvoI NqPTHzXRE3NLnpi4jjjA6n inXyGIYpGUAuc0FdOnH5qH IfoDZnx0d5xWL7KVewd3wh Q2QhFZ7gREG8muVrQS71TY G2iFPndRXof1yaK6lqZ4Ia f4QkiLZqyvXsiTMrwhG1vZ DfpE9kFGVsfPhwQuAcMNuo CA9rzNUsAd4eUD6gYMubOU Wpk0W6gDUfFBV5itAnASPr RBJeGTRxh3DsU4UvZFK0dz UpZNLjDNjbWECvdo06bD6t wLUobYVvVZEmp6Mxpk2gkQ OozE2jgJpkIWXgsh2xNTVw BHSkvJEfbAuiHZTvls19rX 9dzFNeePJ1FFMsm9Ewgd4b eMMlbC9qjWobHIOed5Tpgi pggfL3bVSxJTapRDZ0SRB4 FFLgmzKibx0nsUHdvaXgKi leNatyJMY2EA4vg9wdUW0v VGTdKZAprzTctrktztN0gE PqJPluEM9bVVWcxrPzsOwy IHBlZGlzIGFydGVyaWVzLi NXkQAgdrNnNSvicS2cTTHc RoNyvHxjb6UkLJ1fDBIuDU RcKLnuaOMpV0Pqm8WnxKT8 lqTzaMRko4BhrOSaJFIzzK Mgc5NqcHR2cCDpPINqL6Ch d72iYYEuQQQzmUNxcUQ5DO HmfJ0qJSPkQXqzGPLwb5Qi JXHjLYqlaEMtA1L1dZ2nXN 9mZVO1KqpdQCHymEDwCFmy djEjyQnogU2tWiNkOgLwTV kiUE1vTRDpC9wcxXNgYCXv SABwT3mvEyHaiG3ozHvcJT qalrXeTRFeRMApYMC0OSKp YWluXGYxXGZzMjBcbGFuZz EwMzNcaGljaFxmMVxkYmNo TXPfVMhsA9bvEiQmAqFeNW RwKuk2ZJpmmUPqomouUUcp czIwXGxhbmcxMDMzXGhpY2 vpIvHvJZEaoSsoVYkrj2Cw XGYxXGZzMjBcdTgyMTEgXC h5CxfopXMlyuooINyyraRh PKdmvyvwKJDmGWxsV2oeYt KvIQYxaMpmLGflf5ViNQPe QJQuDfXgBZ57ICArp1CabS tqyNTfBKBbn9A2oRClNRA7 bmRsZSwgcmVkXHBsYWluXG YxXGZzMjBcbGFuZzEwMzNc aGljaFxmMVxkYmNoXGYxXG kfW3epShPnClBiNHb9VKMl XXYcSnb6MEPrJKonXPMoEE ZzMjBcbGFuZzEwMzNcaGlj aFxmMVxkYmNoXGYxXGxvY2 kaUiWsAzTnILZje1R7XRLq l2NtfLprqYEpMJFhr3L6hG LwVDN8gqSmWIszo6Czhvsf XHBsYWluXGYxXGZzMjBcbG FuZzEwMzNcaGljaFxmMVxk EaCsUKXkCAqpA6hoRvYjGj ZvBSy2XOWjLXCcTsy7UTWy YWluXGYxXGZzMjBcbGFuZz EwMzNcaGljaFxmMVxkYmNo TXYiAZlxK3geWxIkKhQsWZ BwZXJvbmVhbCBhcnRlcnks ZCVglK6oRMOaDJ0xa4WvfO MgcGVkaXNccGFyXHBhciBT HEW9uO0zMQJgFQK0XEZvpf YUGKgiUR78QPSen5Yiu3io wzFkqlXne35ygCM6zQKxqP EybpYoWUR0qJ7vML7fvyvs ffetGB9rPtZjTIlyovHtpb LtIG91UTUvlrFqyCPjHODk VkMDw0U3GTCzm3Yxb7ofge Wjl3K9VRElj2U7ZRCwGPCs F7Qpd89qgFHkP6zzKJQugk BmYWNlLCByZXByZXNlbnRh cAn1SLbbWUWyBHK5JD2lkt BspvAftHD0pGSysOxlmPVa NFBvmdBfsrEvXUA8aC2wVV 7clufbpaxqzgAnfaKgCZ13 NHGrcxEetEZmMMA1KeYPID RfcHrwwlYfICYhU8Adj20b gSMsA4lycsytWJ7bTgVfZN dtFYMmIQF9FYBij7G1hNFn NQA9vaGmAWDpWPZorOEzt1 WqyCP3gKXfEFLgfnBETpgf VWxjZXJhdGVkLCByZXByZX OwqjNhaHt2EJruGVCrKXd1 CVQkz0euEFUfPBZbPL6vK6 JvdGljIGFyZWEsIHJlcHJl l2SotRN7dMEkKTQvwaJKSN cwI6NlP8EvDESaBWOzkjWj j6CpaqDnIO14GXPuVF8gJ0 JvdGljIGFyZWEsIHJlcHJl v1GvkBQ4pTOsKXUiawmpFD JccGFyZFxwbGFpblxmMFxm gaK2TXXlCUxnJQCeFPTiGf BcbGFuZzEwMzNcaGljaFxm XKxcVaDiTMOzNRhsR2vgEq TkZjXiJDGCs57lpJYScZYp cmEsIFBhdGggQSBTdHVkZW 76UELmug6= Embedded Images (test code = 5389791237) [facility] GLUCOSE (AUTOMATED)2020-03-26 14:22:00 Test Item Value Reference Range Interpretation Comments POCT GLU (test code = 1676628124) 125 mg/dL 70-110 H Lab Interpretation (test code = Abnormal 23177-5) [facility] GLUCOSE (AUTOMATED)2020-03-26 10:07:00 Test Item Value Reference Range Interpretation Comments POCT GLU (test code = 2014046117) 160 mg/dL 70-110 H Lab Interpretation (test code = Abnormal 73456-5) [facility] GLUCOSE (AUTOMATED)2020-03-26 06:33:00 Test Item Value Reference Range Interpretation Comments POCT GLU (test code = 2771090330) 188 mg/dL 70-110 H Lab Interpretation (test code = Abnormal 95845-4) [facility] GLUCOSE (AUTOMATED)2020-03-26 06:13:00 Test Item Value Reference Range Interpretation Comments POCT GLU (test code = 5398134555) 191 mg/dL 70-110 H Lab Interpretation (test code = Abnormal 64465-8) [facility] 02:48:00 Test Item Value Reference Range Interpretation Comments POCT GLU (test code = 4059823837) 229 mg/dL 70-110 H Lab Interpretation (test code = Abnormal 76576-2) [facility]-03-25 23:58:00 Test Item Value Reference Range Interpretation Comments POCT GLU (test code = 4319874527) 184 mg/dL 70-110 H Lab Interpretation (test code = Abnormal 85925-6) [facility]-03-25 21:25:00 Test Item Value Reference Range Interpretation Comments POCT GLU (test code = 2048615590) 217 mg/dL 70-110 H Lab Interpretation (test code = Abnormal 77475-4) [facility] GLUCOSE (AUTOMATED)2020-03-25 20:04:00 Test Item Value Reference Range Interpretation Comments POCT GLU (test code = 6472929239) 223 mg/dL 70-110 [facility]test code = [facility] 12833[facility]00 Test Item Value Reference Range Interpretation Comments POCT GLU (test code = 6163785067) 222 mg/dL 70-110 H Lab Interpretation (test code = Abnormal 68387-1[facility] 13:19:00 Test Item Value Reference Range Interpretation Comments POCT GLU (test code = 8644549480) 115 mg/dL 70-110 H Lab Interpretation (test code = Abnormal 61591-2) [facility]25 10:10:00 Test Item Value Reference Range Interpretation Comments POCT GLU (test code = 5806891705) 181 mg/dL 70-110 H Lab Interpretation (test code = Abnormal 76978-9) [facility]25 06:41:00 Test Item Value Reference Range Interpretation Comments POCT GLU (test code = 5875310176) 166 mg/dL 70-110 H Lab Interpretation (test code = Abnormal 18265-6) [facility] GLUCOSE (AUTOMATED)2020-03-25 02:04:00 Test Item Value Reference Range Interpretation Comments POCT GLU (test code = 0496028301) 204 mg/dL 70-110 H Lab Interpretation (test code = Abnormal 36105-0) [facility] GLUCOSE (AUTOMATED)2020-03-24 22:45:00 Test Item Value Reference Range Interpretation Comments POCT GLU (test code = 2989680410) 192 mg/dL 70-110 H Lab Interpretation (test code = Abnormal 09830-4) [facility] CULTURE [id number] 20:02:00 Test Item Value Reference Range Interpretation Comments Blood Culture-Aerobic No organisms No growth Previo us (test code = 67588-3) isolated prelim inary verified result was Culture In Progress on 03/19/2020 at 1801 CDTPreviou s preliminary verified result was No growth a t 24 hours on 03/20/2020 at 1501 CDTPreviou s preliminary verified result was No growth a t 48 hours on 03/21/2020 at 1501 CDTPreviou s preliminary verified result was No growth a t 72 hours on 03/22/2020 at 14 01 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 Blood No organisms No growth Previous Culture-Anaerobic isolated preliminar y (test code = 98826-8) verifi ed result was Culture In Progress on 03/19/2020 at 1801 CDTPreviou s preliminary verified result was No growth a t 24 hours on 03/20/2020 at 1501 CDTPreviou s preliminary verified result was No growth a t 48 hours on 03/21/2020 at 1501 CDTPreviou s preliminary verified result was No growth a t 72 hours on 03/22/2020 at 14 01 CODING COMPLIANCE MANAGER Lab Interpretation Normal (test code = 01327-1) [facility] CULTURE [id number] 20:02:00 Test Item Value Reference Range Interpretation Comments Blood Culture-Aerobic No organisms No growth Previo us (test code = 27690-9) isolated prelim inary verified result was Culture In Progress on 03/19/2020 at 1801 CDTPreviou s preliminary verified result was No growth a t 24 hours on 03/20/2020 at 1501 CDTPreviou s preliminary verified result was No growth a t 48 hours on 03/21/2020 at 1501 CDTPreviou s preliminary verified result was No growth a t 72 hours on 03/22/2020 at 14 01 CODING COMPLIANCE MANAGER Blood No organisms No growth Previous Culture-Anaerobic isolated preliminar y (test code = 11679-9) verifi ed result was Culture In Progress on 03/19/2020 at 1801 CDTPreviou s preliminary verified result was No growth a t 24 hours on 03/20/2020 at 1501 CDTPreviou s preliminary verified result was No growth a t 48 hours on 03/21/2020 at 1501 CDTPreviou s preliminary verified result was No growth a t 72 hours on 03/22/2020 at 14 01 CODING COMPLIANCE MANAGER Lab Interpretation Normal (test code = 93217-2) [facility] GLUCOSE (AUTOMATED)2020-03-24 18:07:00 Test Item Value Reference Range Interpretation Comments POCT GLU (test code = 8899383331) 196 mg/dL 70-110 H Lab Interpretation (test code = Abnormal 03022-1) [facility] GLUCOSE (AUTOMATED)2020-03-24 13:28:00 Test Item Value Reference Range Interpretation Comments POCT GLU (test code = 4957394737) 180 mg/dL 70-110 H Lab Interpretation (test code = Abnormal 34521-2) [facility] WITH [id number] 10:56:00 Test Item Value Reference Range Interpretation Comments WBC (test code = See_Comment H [Automated 6690-2) message] The sy stem which generated this result transmitted reference range : 4.20 - 10.70 10*3/?L. The reference range was not used to interpret this result as normal/abnormal . RBC (test code = See_Comment L [Automated 539-8) message] The sy stem which generated this [...] RDW-SD (test code = 45.8 fL 38.5-51.6 27201-0) RDW-CV (test code = 15.5 % 12.1-15.4 H 788-0) PLT (test code = See_Comment H [Automated 777-3) message] The sy stem which generated this result transmitted reference range : 150 - 328 10*3/ ?L. The reference r batsheva was not used to interpret this result as normal/abnormal . MPV (test code = 9.3 fL 9.8-13 L 15142-8) NRBC/100 WBC (test See_Comment [Automat ed code = 1453512040) message] The system which generated this result transmitted reference range : 0.0 - 10.0 /100 WBCs. The refer ence range was not u sed to interpret th is result as normal/abnormal . NRBC x10^3 (test code <0.01 See_Comment [Auto mated = 8807399365) message] The s ystem which generated this result transmitted reference range : 10*3/?L. The reference range was not used to interpret this result as normal/abnormal . GRAN MAT (NEUT) % 72.9 % (test code = 770-8) IMM GRAN % (test code 3.40 % = 2891918713) LYMPH % (test code = 17.3 % 736-9) MONO % (test code = 4.2 % 5905-5) EOS % (test code = 1.8 % 713-8) BASO % (test code = 0.4 % 706-2) GRAN MAT x10^3(ANC) 7.89 10*3/uL 1.99-6.95 H (test code = 3673561732) IMM GRAN x10^3 (test 0.37 10*3/uL 0-0.06 H code = 2065764853) LYMPH x10^3 (test code 1.87 10*3/uL 1.09-3.23 = 731-0) MONO x10^3 (test code 0.46 10*3/uL 0.36-1.02 = 742-7) EOS x10^3 (test code = 0.20 10*3/uL 0.06-0.53 711-2) BASO x10^3 (test code 0.04 10*3/uL 0.01-0.09 = 704-7) Lab Interpretation Abnormal (test code = 85086-5) [facility] GLUCOSE (AUTOMATED)2020-03-24 10:36:00 Test Item Value Reference Range Interpretation Comments POCT GLU (test code = 0123336421) 133 mg/dL 70-110 H Lab Interpretation (test code = Abnormal 47489-4) [facility] GLUCOSE (AUTOMATED)2020-03-24 06:00:00 Test Item Value Reference Range Interpretation Comments POCT GLU (test code = 4879775944) 137 mg/dL 70-110 H Lab Interpretation (test code = Abnormal 06040-1) [facility] GLUCOSE (AUTOMATED)2020-03-24 01:35:00 Test Item Value Reference Range Interpretation Comments POCT GLU (test code = 0924002287) 192 mg/dL 70-110 H Lab Interpretation (test code = Abnormal 46663-7) [facility] GLUCOSE (AUTOMATED)2020-03-23 23:35:00 Test Item Value Reference Range Interpretation Comments POCT GLU (test code = 7248686096) 176 mg/dL 70-110 H Lab Interpretation (test code = Abnormal 87038-3) [facility] GLUCOSE (AUTOMATED)2020-03-23 21:56:00 Test Item Value Reference Range Interpretation Comments POCT GLU (test code = 9071315525) 179 mg/dL 70-110 H Lab Interpretation (test code = Abnormal 05621-7) [facility] GLUCOSE (AUTOMATED)2020-03-23 18:05:00 Test Item Value Reference Range Interpretation Comments POCT GLU (test code = 4606581700) 160 mg/dL 70-110 H Lab Interpretation (test code = Abnormal 08768-9) [facility] WITH [id number] 15:10:00 Test Item Value Reference Range Interpretation [...] RDW-SD (test code = 46.0 fL 38.5-51.6 28335-4) RDW-CV (test code = 15.1 % 12.1-15.4 788-0) PLT (test code = See_Comment H [Automated 777-3) message] The sy stem which generated this result transmitted reference range : 150 - 328 10*3/ ?L. The reference r batsheva was not used to interpret this result as normal/abnormal . MPV (test code = 9.5 fL 9.8-13 L 39479-1) NRBC/100 WBC (test See_Comment [Automat ed code = 0001659179) message] The system which generated this result transmitted reference range : 0.0 - 10.0 /100 WBCs. The refer ence range was not u sed to interpret th is result as normal/abnormal . NRBC x10^3 (test code <0.01 See_Comment [Auto mated = 2872509695) message] The s ystem which generated this result transmitted reference range : 10*3/?L. The reference range was not used to interpret this result as normal/abnormal . GRAN MAT (NEUT) % 75.4 % (test code = 770-8) IMM GRAN % (test code 4.30 % = 6028735624) LYMPH % (test code = 13.8 % 736-9) MONO % (test code = 4.0 % 5905-5) EOS % (test code = 1.9 % 713-8) BASO % (test code = 0.6 % 706-2) GRAN MAT x10^3(ANC) 8.16 10*3/uL 1.99-6.95 H (test code = 9352511758) IMM GRAN x10^3 (test 0.47 10*3/uL 0-0.06 H code = 9784661249) LYMPH x10^3 (test code 1.49 10*3/uL 1.09-3.23 = 731-0) MONO x10^3 (test code 0.43 10*3/uL 0.36-1.02 = 742-7) EOS x10^3 (test code = 0.20 10*3/uL 0.06-0.53 711-2) BASO x10^3 (test code 0.06 10*3/uL 0.01-0.09 = 704-7) Lab Interpretation Abnormal (test code = 48350-8) [facility] 13:58:00 Test Item Value Reference Range Interpretation Comments POCT GLU (test code = 5462534566) 125 mg/dL 70-110 H Lab Interpretation (test code = Abnormal 31487-2) [facility] (NA, K, CL, CO2, GLUCOSE, BUN, CREATININE, CA)2020-03-23 12:18:00 Test Item Value Reference Range Interpretation Comments NA (test code = 136 mmol/L 135-145 3629706257) K (test code = 4.0 mmol/L 3.5-5 3794200143) CL (test code = 102 mmol/L 98-108 9961674444) CO2 TOTAL (test code = 29 mmol/L 23-31 2868854070) AGAP (test code = 2-16 1456931549) BUN (test code = 7 mg/dL 7-23 1651374795) GLUCOSE (test code = 134 mg/dL 70-110 H 1199246408) CREATININE (test code = 0.64 mg/dL 0.6-1.25 9185174931) CALCIUM (test code = 8.0 mg/dL 8.6-10.6 L 4818325275) eGFR Calculation mL/min/1.73m2 (Non-) (test code = 1652853957) eGFR Calculation mL/min/1.73m2 () (test code = 4343508280) DIANE (test code = DIANE) Association of [...] tests). Lab Interpretation Abnormal (test code = 10010-2) [facility] 12:18:00 Test Item Value Reference Range Interpretation Comments MAGNESIUM (test code = 7477454596) 1.6 mg/dL 1.7-2.4 L Lab Interpretation (test code = Abnormal 18218-7) [facility]2020-[facility] 12:18:00 Test Item Value Reference Range Interpretation Comments PHOSPHORUS (test code = 3384831574) 4.1 mg/dL 2.5-5 Lab Interpretation (test code = Normal 15555-6) [facility]2020-03-23 09:26:00 Test Item Value Reference Range Interpretation Comments POCT GLU (test code = 137 mg/dL 70-110 H RNNoti fied Provider 5216975303) Lab Interpretation (test Abnormal code = 88092-0) [facility] GLUCOSE (AUTOMATED)2020-03-23 05:22:00 Test Item Value Reference Range Interpretation Comments POCT GLU (test code = 136 mg/dL 70-110 H RNNoti fied Provider [id number]) Lab Interpretation (test Abnormal code = 77025-8) [facility] GLUCOSE (AUTOMATED)2020-03-23 01:18:00 Test Item Value Reference Range Interpretation Comments POCT GLU (test code = 155 mg/dL 70-110 H RNNoti fied Provider 8980481006) Lab Interpretation (test Abnormal code = 70833-1) [facility] GLUCOSE (AUTOMATED)2020-03-22 23:04:00 Test Item Value Reference Range Interpretation Comments POCT GLU (test code = 0651343496) 144 mg/dL 70-110 H Lab Interpretation (test code = Abnormal 57699-8) [facility] GLUCOSE (AUTOMATED)2020-03-22 18:59:00 Test Item Value Reference Range Interpretation Comments POCT GLU (test code = 8708825019) 155 mg/dL 70-110 H Lab Interpretation (test code = Abnormal 50564-5) [facility] GLUCOSE (AUTOMATED)2020-03-22 15:36:00 Test Item Value Reference Range Interpretation Comments POCT GLU (test code = 5870453548) 121 mg/dL 70-110 H Lab Interpretation (test code = Abnormal 48093-9) [facility] GLUCOSE (AUTOMATED)2020-03-22 13:31:00 Test Item Value Reference Range Interpretation Comments POCT GLU (test code = 5520389413) 112 mg/dL 70-110 H Lab Interpretation (test code = Abnormal 71903-6) [facility] (NA, K, CL, CO2, GLUCOSE, BUN, CREATININE, CA)2020-03-22 11:41:00 Test Item Value Reference Range Interpretation Comments NA (test code = 137 mmol/L 135-145 1473317233) K (test code = 4.2 mmol/L 3.5-5 1887161041) CL (test code = 105 mmol/L 98-108 4640936724) CO2 TOTAL (test code = 26 mmol/L 23-31 2897633647) AGAP (test code = 2-16 1815071422) BUN (test code = 10 mg/dL 7-23 3855556667) GLUCOSE (test code = 123 mg/dL 70-110 H 8871181337) CREATININE (test code = 0.64 mg/dL 0.6-1.25 6333137260) CALCIUM (test code = 7.7 mg/dL 8.6-10.6 L 9814814456) eGFR Calculation mL/min/1.73m2 (Non-) (test code = 7544571237) eGFR Calculation mL/min/1.73m2 () (test code = 8541590469) DIANE (test code = DIANE) Association of [...] tests). Lab Interpretation Abnormal (test code = 52262-6) [facility] Test Item Value Reference Range Interpretation Comments MAGNESIUM (test code = 7663371648) 1.6 mg/dL 1.7-2.4 L Lab Interpretation (test code = Abnormal 83748-7) [facility] 11:41:00 Test Item Value Reference Range Interpretation Comments PHOSPHORUS (test code = 9208379805) 4.4 mg/dL 2.5-5 Lab Interpretation (test code = Normal 79011-9) [facility] WITH [id number] 10:35:00 Test Item Value Reference Range Interpretation [...] RDW-SD (test code = 47.8 fL 38.5-51.6 74880-9) RDW-CV (test code = 15.6 % 12.1-15.4 H 788-0) PLT (test code = See_Comment H [Automated 777-3) message] The sy stem which generated this result transmitted reference range : 150 - 328 10*3/ ?L. The reference r batsheva was not used to interpret this result as normal/abnormal . MPV (test code = 9.9 fL 9.8-13 63281-9) NRBC/100 WBC (test See_Comment [Automat ed code = 9748200393) message] The system which generated this result transmitted reference range : 0.0 - 10.0 /100 WBCs. The refer ence range was not u sed to interpret th is result as normal/abnormal . NRBC x10^3 (test code <0.01 See_Comment [Auto mated = 0300781841) message] The s ystem which generated this result transmitted reference range : 10*3/?L. The reference range was not used to interpret this result as normal/abnormal . GRAN MAT (NEUT) % 65.8 % (test code = 770-8) IMM GRAN % (test code 7.30 % = 6621967093) LYMPH % (test code = 19.1 % 736-9) MONO % (test code = 5.1 % 5905-5) EOS % (test code = 2.0 % 713-8) BASO % (test code = 0.7 % 706-2) GRAN MAT x10^3(ANC) 5.78 10*3/uL 1.99-6.95 (test code = 7517237942) IMM GRAN x10^3 (test 0.64 10*3/uL 0-0.06 H code = 2798673158) LYMPH x10^3 (test code 1.68 10*3/uL 1.09-3.23 = 731-0) MONO x10^3 (test code 0.45 10*3/uL 0.36-1.02 = 742-7) EOS x10^3 (test code = 0.18 10*3/uL 0.06-0.53 711-2) BASO x10^3 (test code 0.06 10*3/uL 0.01-0.09 = 704-7) Lab Interpretation Abnormal (test code = 98165-2) [facility] GLUCOSE (AUTOMATED)2020-03-22 09:23:00 Test Item Value Reference Range Interpretation Comments POCT GLU (test code = 121 mg/dL 70-110 H RNNoti fied Provider [id number]) Lab Interpretation (test Abnormal code = 88246-7) [facility] GLUCOSE (AUTOMATED)2020-03-22 04:22:00 Test Item Value Reference Range Interpretation Comments POCT GLU (test code = 158 mg/dL 70-110 H RNNoti fied Provider [id number]) Lab Interpretation (test Abnormal code = 89013-7) [facility] GLUCOSE (AUTOMATED)2020-03-22 00:25:00 Test Item Value Reference Range Interpretation Comments POCT GLU (test code = 138 mg/dL 70-110 H RNNoti fied Provider 0530184105) Lab Interpretation (test Abnormal code = 68478-4) [facility] GLUCOSE (AUTOMATED)2020-03-21 23:04:00 Test Item Value Reference Range Interpretation Comments POCT GLU (test code = 0602468595) 141 mg/dL 70-110 H Lab Interpretation (test code = Abnormal 87145-6) [facility] GLUCOSE (AUTOMATED)2020-03-21 18:43:00 Test Item Value Reference Range Interpretation Comments POCT GLU (test code = 4110314613) 94 mg/dL 70-110 Lab Interpretation (test code = Normal 26565-1) [facility] GLUCOSE (AUTOMATED)2020-03-21 13:41:00 Test Item Value Reference Range Interpretation Comments POCT GLU (test code = 7647234568) 108 mg/dL 70-110 Lab Interpretation (test code = Normal 14631-8) [facility] Level - Draw immediately prior to the 4TH dose, but, no more than 60 minutes before the NEXT dose. 2020-03-21 11:20:00 Test Item Value Reference Range Interpretation Comments VANCO TROUGH (test code 10.0 ug/mL 10-20 = 8475016350) DIANE (test code = DIANE) Toxic Range: ?>20 ug/mL 15-20 ug/mL is recommended for severe infection or when Vancomycin MILLICENT is greater than or equal to 2. Lab Interpretation (test Normal code = 41065-9) [facility] WITH [id number] 09:27:00 Test Item Value Reference Range Interpretation Comments WBC (test code = See_Comment H [Automated 3190-2) message] The sy stem which generated this result transmitted reference range : 4.20 - 10.70 10*3/?L. The reference range was not used to interpret this result as normal/abnormal . RBC (test code = See_Comment L [Automated 759-8) message] The sy stem which [...] RDW-SD (test code = 46.7 fL 38.5-51.6 44307-4) RDW-CV (test code = 15.3 % 12.1-15.4 788-0) PLT (test code = See_Comment H [Automated 777-3) message] The sy stem which generated this result transmitted reference range : 150 - 328 10*3/ ?L. The reference r batsheva was not used to interpret this result as normal/abnormal . MPV (test code = 9.3 fL 9.8-13 L 51893-7) NRBC/100 WBC (test See_Comment [Automat ed code = 3791261419) message] The system which generated this result transmitted reference range : 0.0 - 10.0 /100 WBCs. The refer ence range was not u sed to interpret th is result as normal/abnormal . NRBC x10^3 (test code <0.01 See_Comment [Auto mated = 4331993659) message] The s ystem which generated this result transmitted reference range : 10*3/?L. The reference range was not used to interpret this result as normal/abnormal . GRAN MAT (NEUT) % 67.4 % (test code = 770-8) IMM GRAN % (test code 7.60 % = 0629583102) LYMPH % (test code = 16.5 % 736-9) MONO % (test code = 6.2 % 5905-5) EOS % (test code = 1.8 % 713-8) BASO % (test code = 0.5 % 706-2) GRAN MAT x10^3(ANC) 8.38 10*3/uL 1.99-6.95 H (test code = 9948479816) IMM GRAN x10^3 (test 0.95 10*3/uL 0-0.06 H code = 0407005228) LYMPH x10^3 (test code 2.06 10*3/uL 1.09-3.23 = 731-0) MONO x10^3 (test code 0.77 10*3/uL 0.36-1.02 = 742-7) EOS x10^3 (test code = 0.23 10*3/uL 0.06-0.53 711-2) BASO x10^3 (test code 0.06 10*3/uL 0.01-0.09 = 704-7) Lab Interpretation Abnormal (test code = 57359-4) [facility] METABOLIC PANEL (NA, K, CL, CO2, GLUCOSE, BUN, CREATININE, CA)2020-03-21 08:59:00 Test Item Value Reference Range Interpretation Comments NA (test code = 135 mmol/L 135-145 5480637752) K (test code = 4.0 mmol/L 3.5-5 2497202506) CL (test code = 109 mmol/L 98-108 H 7171256963) CO2 TOTAL (test code = 22 mmol/L 23-31 L 5356210897) AGAP (test code = 2-16 1673137102) BUN (test code = 13 mg/dL 7-23 2417567975) GLUCOSE (test code = 125 mg/dL 70-110 H 0797817684) CREATININE (test code = 0.63 mg/dL 0.6-1.25 1509120561) CALCIUM (test code = 7.7 mg/dL 8.6-10.6 L 1138299023) eGFR Calculation mL/min/1.73m2 (Non-) (test code = 1400056104) eGFR Calculation mL/min/1.73m2 () (test code = 8129346704) DIANE (test code = DIANE) Association of [...] tests). Lab Interpretation Abnormal (test code = 80419-8) [facility] 08:59:00 Test Item Value Reference Range Interpretation Comments MAGNESIUM (test code = 7852193621) 1.7 mg/dL 1.7-2.4 Lab Interpretation (test code = Normal 55447-6) [facility]2020-10-31 08:59:00 Test Item Value Reference Range Interpretation Comments PHOSPHORUS (test code = 0261724668) 3.5 mg/dL 2.5-5 Lab Interpretation (test code = Normal 02109-5) [facility] GLUCOSE (AUTOMATED)2020-03-21 08:32:00 Test Item Value Reference Range Interpretation Comments POCT GLU (test code = 123 mg/dL 70-110 H RNNoti fied Provider 2497344748) Lab Interpretation (test Abnormal code = 33001-7) [facility] GLUCOSE (AUTOMATED)2020-03-21 05:20:00 Test Item Value Reference Range Interpretation Comments POCT GLU (test code = 0950689187) 136 mg/dL 70-110 H Lab Interpretation (test code = Abnormal 82747-7) [facility] GLUCOSE (AUTOMATED)2020-03-21 00:50:00 Test Item Value Reference Range Interpretation Comments POCT GLU (test code = 9995645259) 163 mg/dL 70-110 H Lab Interpretation (test code = Abnormal 48154-7) [facility] WITH [id number] 23:36:00 Test Item Value Reference Range Interpretation [...] RDW-SD (test code = 46.0 fL 38.5-51.6 68480-1) RDW-CV (test code = 15.2 % 12.1-15.4 788-0) PLT (test code = See_Comment H [Automated 777-3) message] The system which generated this result transmit ludmila reference range : 150 - 328 10*3/ ?L. The reference range was not u sed to interpret th is result as normal/abnormal . MPV (test code = 9.4 fL 9.8-13 L 24321-7) NRBC/100 WBC (test See_Comment [Automat ed code = 0915941309) message] The system which generated this result transmit ludmila reference range : 0.0 - 10.0 /100 WBCs. The reference range was not used to interpret this result as normal/abnormal . NRBC x10^3 (test code <0.01 See_Comment [Auto mated = 4917192923) message] The system which generated this result transmit ludmila reference range : 10*3/?L. The reference range was not used to interpret this result as normal/abnormal . GRAN MAT (NEUT) % 74.9 % (test code = 770-8) IMM GRAN % (test code 5.60 % = 9136723578) LYMPH % (test code = 13.1 % 736-9) MONO % (test code = 5.3 % 5905-5) EOS % (test code = 0.8 % 713-8) BASO % (test code = 0.3 % 706-2) GRAN MAT x10^3(ANC) 10.84 10*3/uL 1.99-6.95 H (test code = 1671555983) IMM GRAN x10^3 (test 0.81 10*3/uL 0-0.06 H code = 1594327803) LYMPH x10^3 (test code 1.89 10*3/uL 1.09-3.23 = 731-0) MONO x10^3 (test code 0.76 10*3/uL 0.36-1.02 = 742-7) EOS x10^3 (test code = 0.11 10*3/uL 0.06-0.53 711-2) BASO x10^3 (test code 0.05 10*3/uL 0.01-0.09 = 704-7) Lab Interpretation Abnormal (test code = 60789-3) [facility] GLUCOSE (AUTOMATED)2020-03-20 21:09:00 Test Item Value Reference Range Interpretation Comments POCT GLU (test code = 1853678068) 191 mg/dL 70-110 H Lab Interpretation (test code = Abnormal 84801-0) [facility] GLUCOSE (AUTOMATED)2020-03-20 16:18:00 Test Item Value Reference Range Interpretation Comments POCT GLU (test code = 2604698146) 176 mg/dL 70-110 H Lab Interpretation (test code = Abnormal 53073-7) [facility] - Peripheral # [id number] 15:39:00 Test Item Value Reference Range Interpretation Comments Blood Culture-Aerobic Culture positive. No growth AA P revious (test code = 04212-6) See Blood prelim inary Culture Workup verified resu lt for additional was Culture I n information. Progress on 03/16/2020 at 0501 CDTPreviou s preliminary verified result was No growth a t 24 hours on 03/17/2020 at 0201 CDT Blood Culture positive. No growth AA Previous Culture-Anaerobic See Blood preliminar y (test code = 48818-1) Culture Workup veri fied result for additional was Culture I n information. Progress on 03/16/2020 at 0501 CDTPreviou s preliminary verified result was No growth a t 24 hours on 03/17/2020 at 1451 CDT Lab Interpretation Abnormal (test code = 75812-8) [facility] CULTURE [id number] 15:39:00 Test Item Value Reference Range Interpretation Comments Blood Culture Anaerococcus [place] Workup (test species morphologically code = 600-7) consistent wit h organism aboveF or susceptibility results, refer to culture # - [id number] Gram stain Isolated from This is an ronald ended (test code = anaerobic bottle report. The se results 664-3) Gram positive cocci have bee n appended to a previously preliminary mauri ified report. [facility] Culture - Peripheral # [id number] 13:28:00 Test Item Value Reference Range Interpretation Comments Blood Culture-Aerobic Culture positive. No growth AA P revious (test code = 43739-3) See Blood prelim inary Culture Workup verified resu lt for additional was Culture I n information. Progress on 03/16/2020 at 1459 CDT Blood Culture positive. No growth AA Previous Culture-Anaerobic See Blood preliminar y (test code = 74868-6) Culture Workup veri fied result for additional was Culture I n information. Progress on 03/16/2020 at 1458 CDT Lab Interpretation Abnormal (test code = 94026-5) [facility]2020-03-20 12:22:00 Test Item Value Reference Range Interpretation Comments POCT GLU (test code = 6196314386) 189 mg/dL 70-110 H Lab Interpretation (test code = Abnormal 63196-3) [facility] WITH [id number] 09:52:00 Test Item Value Reference Range Interpretation [...] RDW-SD (test code = 46.2 fL 38.5-51.6 89365-2) RDW-CV (test code = 15.2 % 12.1-15.4 788-0) PLT (test code = See_Comment H [Automated 777-3) message] The system which generated this result transmit ludmila reference range : 150 - 328 10*3/ ?L. The reference range was not u sed to interpret th is result as normal/abnormal . MPV (test code = 9.6 fL 9.8-13 L 44527-9) NRBC/100 WBC (test See_Comment [Automat ed code = 0428463546) message] The system which generated this result transmit ludmila reference range : 0.0 - 10.0 /100 WBCs. The reference range was not used to interpret this result as normal/abnormal . NRBC x10^3 (test code <0.01 See_Comment [Auto mated = 4260811816) message] The system which generated this result transmit ludmila reference range : 10*3/?L. The reference range was not used to interpret this result as normal/abnormal . GRAN MAT (NEUT) % 81.4 % (test code = 770-8) IMM GRAN % (test code 5.40 % = 4780015929) LYMPH % (test code = 7.7 % 736-9) MONO % (test code = 5.2 % 5905-5) EOS % (test code = 0.1 % 713-8) BASO % (test code = 0.2 % 706-2) GRAN MAT x10^3(ANC) 16.81 10*3/uL 1.99-6.95 H (test code = 6946312876) IMM GRAN x10^3 (test 1.12 10*3/uL 0-0.06 H code = 8501877387) LYMPH x10^3 (test code 1.58 10*3/uL 1.09-3.23 = 731-0) MONO x10^3 (test code 1.07 10*3/uL 0.36-1.02 H = 742-7) EOS x10^3 (test code = <0.03 0.06-0.53 L 711-2) BASO x10^3 (test code 0.05 10*3/uL 0.01-0.09 = 704-7) Lab Interpretation Abnormal (test code = 39719-5) [facility] METABOLIC PANEL (NA, K, CL, CO2, GLUCOSE, BUN, CREATININE, CA)2020-03-20 09:40:00 Test Item Value Reference Range Interpretation Comments NA (test code = 135 mmol/L 135-145 6906139874) K (test code = 4.4 mmol/L 3.5-5 7855994069) CL (test code = 112 mmol/L 98-108 H 3587278224) CO2 TOTAL (test code = 19 mmol/L 23-31 L 6802920456) AGAP (test code = 2-16 2286695907) BUN (test code = 19 mg/dL 7-23 4742545751) GLUCOSE (test code = 199 mg/dL 70-110 H 0270964994) CREATININE (test code = 0.68 mg/dL 0.6-1.25 4245580180) CALCIUM (test code = 7.6 mg/dL 8.6-10.6 L 4578591403) eGFR Calculation mL/min/1.73m2 (Non-) (test code = 1366743908) eGFR Calculation mL/min/1.73m2 () (test code = 5982268038) DIANE (test code = DIANE) Association of [...] tests). Lab Interpretation Abnormal (test code = 02292-4) [facility] 09[facility]40:00 Test Item Value Reference Range Interpretation Comments MAGNESIUM (test code = 1381216214) 1.9 mg/dL 1.7-2.4 Lab Interpretation (test code = Normal 60753-1) [facility]2020-10-30 09:40:00 Test Item Value Reference Range Interpretation Comments PHOSPHORUS (test code = 5958576968) 3.1 mg/dL 2.5-5 Lab Interpretation (test code = Normal 37063-7) [facility]2020-03-20 08:41:00 Test Item Value Reference Range Interpretation Comments POCT GLU (test code = 206 mg/dL 70-110 H Notifi ed Provider 8857227660) Lab Interpretation (test Abnormal code = 35684-9) [facility] GLUCOSE (AUTOMATED)2020-03-20 05:14:00 Test Item Value Reference Range Interpretation Comments POCT GLU (test code = 221 mg/dL 70-110 H Notifi ed Provider [id number]) Lab Interpretation (test Abnormal code = 48104-8) [facility] GLUCOSE (AUTOMATED)2020-03-20 00:40:00 Test Item Value Reference Range Interpretation Comments POCT GLU (test code = 2047325263) 244 mg/dL 70-110 H Lab Interpretation (test code = Abnormal 87437-6) [facility] GLUCOSE (AUTOMATED)2020-03-19 21:54:00 Test Item Value Reference Range Interpretation Comments POCT GLU (test code = 3445594763) 293 mg/dL 70-110 H Lab Interpretation (test code = Abnormal 32398-8) [facility] GLUCOSE (AUTOMATED)2020-03-19 16:22:00 Test Item Value Reference Range Interpretation Comments POCT GLU (test code = 9040929995) 185 mg/dL 70-110 H Lab Interpretation (test code = Abnormal 03147-5) [facility] GLUCOSE (AUTOMATED)2020-03-19 12:21:00 Test Item Value Reference Range Interpretation Comments POCT GLU (test code = 8403891498) 217 mg/dL 70-110 H Lab Interpretation (test code = Abnormal 99298-9) [facility] METABOLIC PANEL (NA, K, CL, CO2, GLUCOSE, BUN, CREATININE, CA)2020-03-19 10:23:00 Test Item Value Reference Range Interpretation Comments NA (test code = 135 mmol/L 135-145 0370672366) K (test code = 4.3 mmol/L 3.5-5 9564136868) CL (test code = 110 mmol/L 98-108 H 9672845481) CO2 TOTAL (test code = 17 mmol/L 23-31 L 1175307859) AGAP (test code = 2-16 9804024560) BUN (test code = 18 mg/dL 7-23 0790014193) GLUCOSE (test code = 216 mg/dL 70-110 H 1547140655) CREATININE (test code = 0.73 mg/dL 0.6-1.25 9172821397) CALCIUM (test code = 7.6 mg/dL 8.6-10.6 L 8241949821) eGFR Calculation mL/min/1.73m2 (Non-) (test code = 9702615470) eGFR Calculation mL/min/1.73m2 () (test code = 4950910263) DIANE (test code = DIANE) Association of [...] tests). Lab Interpretation Abnormal (test code = 27203-3) [facility]2020-10-29 10:23:00 Test Item Value Reference Range Interpretation Comments MAGNESIUM (test code = 0499859468) 1.9 mg/dL 1.7-2.4 Lab Interpretation (test code = Normal 39695-0) [facility]2020-10-29 10:23:00 Test Item Value Reference Range Interpretation Comments PHOSPHORUS (test code = 2098728313) 3.4 mg/dL 2.5-5 Lab Interpretation (test code = Normal 10364-2) [facility] WITH [id number] 10:09:00 Test Item Value Reference Range Interpretation [...] RDW-SD (test code = 45.6 fL 38.5-51.6 62772-7) RDW-CV (test code = 14.7 % 12.1-15.4 788-0) PLT (test code = See_Comment H [Automated 777-3) message] The system which generated this result transmit ludmila reference range : 150 - 328 10*3/ ?L. The reference range was not u sed to interpret th is result as normal/abnormal . MPV (test code = 9.6 fL 9.8-13 L 77353-6) NRBC/100 WBC (test See_Comment [Automat ed code = 1669234667) message] The system which generated this result transmit ludmila reference range : 0.0 - 10.0 /100 WBCs. The reference range was not used to interpret this result as normal/abnormal . NRBC x10^3 (test code <0.01 See_Comment [Auto mated = 1667410563) message] The system which generated this result transmit ludmila reference range : 10*3/?L. The reference range was not used to interpret this result as normal/abnormal . GRAN MAT (NEUT) % 81.2 % (test code = 770-8) IMM GRAN % (test code 8.20 % = 5986883234) LYMPH % (test code = 7.7 % 736-9) MONO % (test code = 2.7 % 5905-5) EOS % (test code = 0.0 % 713-8) BASO % (test code = 0.2 % 706-2) GRAN MAT x10^3(ANC) 10.61 10*3/uL 1.99-6.95 H (test code = 3350480142) IMM GRAN x10^3 (test 1.07 10*3/uL 0-0.06 H code = 4988981848) LYMPH x10^3 (test code 1.00 10*3/uL 1.09-3.23 L = 731-0) MONO x10^3 (test code 0.35 10*3/uL 0.36-1.02 L = 742-7) EOS x10^3 (test code = <0.03 0.06-0.53 L 711-2) BASO x10^3 (test code <0.03 0.01-0.09 = 704-7) CIRILO CELLS (test code 2+ See_Comment A [Auto mated = 1954-) message] The system which generated this result transmit ludmila reference range : (none). The reference range was not used to interpret this result as normal/abnormal . BANDS (test code = Increased A 7618213181) Lab Interpretation Abnormal (test code = 22499-9) [facility] GLUCOSE (AUTOMATED)2020-03-19 09:04:00 Test Item Value Reference Range Interpretation Comments POCT GLU (test code = 241 mg/dL 70-110 H Notifi ed Provider 8363454276) Lab Interpretation (test Abnormal code = 55236-1) [facility] GLUCOSE (AUTOMATED)2020-03-19 04:36:00 Test Item Value Reference Range Interpretation Comments POCT GLU (test code = 228 mg/dL 70-110 H Notifi ed Provider 9544805885) Lab Interpretation (test Abnormal code = 92254-5) [facility] GLUCOSE (AUTOMATED)2020-03-19 02:11:00 Test Item Value Reference Range Interpretation Comments POCT GLU (test code = 3006904255) 231 mg/dL 70-110 H Lab Interpretation (test code = Abnormal 04926-2) [facility]2020-03-18 23:05:00 Test Item Value Reference Range Interpretation Comments POCT GLU (test code = 4487929466) 222 mg/dL 70-110 H Lab Interpretation (test code = Abnormal 89325-8) [facility] POSITIVE BLOOD PATHOGENS DNA [id number] 22:58:00 Test Item Value Reference Range Interpretation Comments Gram Positive Blood No organisms included in Pathogens by DNA the Blood DNA Probe test Comment-Anaerobic panel were detected. (test code = Further identification [id number]) workup to be performed by culture testing methods. [facility] METABOLIC PANEL (NA, K, CL, CO2, GLUCOSE, BUN, CREATININE, CA)2020-03-18 22:17:00 Test Item Value Reference Range Interpretation Comments NA (test code = 133 mmol/L 135-145 L 0464675683) K (test code = 4.5 mmol/L 3.5-5 0938821790) CL (test code = 108 mmol/L 98-108 3550659591) CO2 TOTAL (test code = 16 mmol/L 23-31 L 0524346743) AGAP (test code = 2-16 2195041017) BUN (test code = 15 mg/dL 7-23 8611642648) GLUCOSE (test code = 175 mg/dL 70-110 H 4952299973) CREATININE (test code = 0.91 mg/dL 0.6-1.25 2401629548) CALCIUM (test code = 7.7 mg/dL 8.6-10.6 L 4819706163) eGFR Calculation mL/min/1.73m2 (Non-) (test code = 5352323271) eGFR Calculation mL/min/1.73m2 () (test code = 2043047194) DIANE (test code = DIANE) Association of [...] tests). Lab Interpretation Abnormal (test code = 76936-3) [facility]2020-10-28 22:17:00 Test Item Value Reference Range Interpretation Comments MAGNESIUM (test code = 7081422678) 1.8 mg/dL 1.7-2.4 Lab Interpretation (test code = Normal 05291-0) [facility]2020-10-28 22:17:00 Test Item Value Reference Range Interpretation Comments PHOSPHORUS (test code = 4019850250) 4.3 mg/dL 2.5-5 Lab Interpretation (test code = Normal 09269-5) [facility]inteCBC WITHOUT [id number] 22:09:00 Test Item Value Reference Range Interpretation Comments WBC (test code = 6690-2) See_Comment H [A utomated message] The system [employer] generated this result transmit ludmila reference range : 4.20 - 10.70 10*3/?L. The reference range was not used to interpret this result as normal/abnormal . RBC (test code = 789-8) See_Comment L [Au tomated message] The system [employer] generated this result transmit ludmila reference range [...] See_Comment H [Au tomated message] The system [facility] generated this result transmit ludmila reference range : 150 - 328 10*3/?L. The reference range was not used to interpret this result as normal/abnormal . MPV (test code = 9.7 fL 9.8-13 L 10663-4) RDW-CV (test code = 14.8 % 12.1-15.4 788-0) RDW-SD (test code = 47.0 fL 38.5-51.6 39233-2) NRBC x10^3 (test code = <0.01 See_Comment [Au tomated message] 6040179438) The system [facility] generated this result transmit ludmila reference range : 10*3/?L. The reference range was not used to interpret this result as normal/abnormal . NRBC/100 WBC (test code See_Comment [Au tomated message] = 8152628003) The system [facility] generated this result transmit ludmila reference range : 0.0 - 10.0 /100 WBC s. The reference r batsheva was not used to interpret this result as normal/abnormal . IPF % (test code = 7386259191) Lab Interpretation (test Abnormal code = 11349-1) [facility]inte[facility] Packed RBC (in units), 2 Units 2020-03-18 19:52:03 Test Item Value Reference Range Interpretation Comments Cross Match Result Compatible (test code = 4409) ISBT Blood Type Code (test code = 569329) Unit Blood Type (test O Pos code = 4410) Unit Number (test [id number] code = 4411) Blood Expiration Date & Time (test code = 804530) Status Information Issued (test code = 4412) Product Red Blood Cells Identification (test code = 4413) Product Code (test V9815S70 Performed at [facility] code = 4414) Laboratory Services - [facility] Blood [address] [place] [address] Noe Patel [address]Umgc Free: [phone] A No. [id number] [facility] PointeNer [id number] 18:54:54Travis Matias MD ? ? 03/19/2020 11:32 AM Nerve Block Procedure: Femoral Nerve Block and Other Peripheral Nerve Laterality: LeftSurgical Anesthesia: no Start Time: 03/18/2020 1:30 PMEnd Time: 03/18/2020 1:55 PMPost Op Pain Management requested by surgeon per surgical: OR PostingAnesthesiologist: Travis Matias MDResident/TECHNICAL CLERK: Cade Pereyra MDPerformed by: resident/CRNAPreanesthetic timeout completed [...] and sciatic nerve via pop approach usg [facility] GLU[facility]SE (AUTOMATED)2020-03-18 16:50:00 Test Item Value Reference Range Interpretation Comments POCT GLU (test code = 0906074067) 154 mg/dL 70-110 H Lab Interpretation (test code = Abnormal 35935-0) [facility] WITH [id number] 15:14:00 Test Item Value Reference Range Interpretation Comments WBC (test code = See_Comment H [Automated 6690-2) message] The system which generated this result transmit ludimla reference range : 4.20 - 10.70 10*3/?L. [...] RDW-SD (test code = 46.5 fL 38.5-51.6 33487-5) RDW-CV (test code = 15.2 % 12.1-15.4 788-0) PLT (test code = See_Comment H [Automated 777-3) message] The system which generated this result transmit ludmila reference range : 150 - 328 10*3/ ?L. The reference range was not u sed to interpret th is result as normal/abnormal . MPV (test code = 9.6 fL 9.8-13 L 99109-7) NRBC/100 WBC (test See_Comment [Automat ed code = 9967477621) message] The system which generated this result transmit ludmila reference range : 0.0 - 10.0 /100 WBCs. The reference range was not used to interpret this result as normal/abnormal . NRBC x10^3 (test code <0.01 See_Comment [Auto mated = 3704033643) message] The system which generated this result transmit ludmila reference range : 10*3/?L. The reference range was not used to interpret this result as normal/abnormal . GRAN MAT (NEUT) % 80.8 % (test code = 770-8) IMM GRAN % (test code 6.50 % = 4623107177) LYMPH % (test code = 5.9 % 736-9) MONO % (test code = 6.0 % 5905-5) EOS % (test code = 0.6 % 713-8) BASO % (test code = 0.2 % 706-2) GRAN MAT x10^3(ANC) 18.20 10*3/uL 1.99-6.95 H (test code = 6846943852) IMM GRAN x10^3 (test 1.46 10*3/uL 0-0.06 H code = 1055946346) LYMPH x10^3 (test code 1.34 10*3/uL 1.09-3.23 = 731-0) MONO x10^3 (test code 1.36 10*3/uL 0.36-1.02 H = 742-7) EOS x10^3 (test code = 0.14 10*3/uL 0.06-0.53 711-2) BASO x10^3 (test code 0.05 10*3/uL 0.01-0.09 = 704-7) DOHLE BODIES (test Present A code = 7792-5) REACT LYMPHS (test Rare code = 3398413649) Lab Interpretation Abnormal (test code = 32013-9) [facility] METABOLIC PANEL (NA, K, CL, CO2, GLUCOSE, BUN, CREATININE, CA)2020-03-18 15:06:00 Test Item Value Reference Range Interpretation Comments NA (test code = 135 mmol/L 135-145 3988038238) K (test code = 4.1 mmol/L 3.5-5 8468754087) CL (test code = 108 mmol/L 98-108 3022577921) CO2 TOTAL (test code = 18 mmol/L 23-31 L 0988913263) AGAP (test code = 2-16 3492474725) BUN (test code = 16 mg/dL 7-23 7851392445) GLUCOSE (test code = 150 mg/dL 70-110 H 1879299038) CREATININE (test code = 0.86 mg/dL 0.6-1.25 7574958393) CALCIUM (test code = 7.6 mg/dL 8.6-10.6 L 7980874876) eGFR Calculation mL/min/1.73m2 (Non-) (test code = 9243430074) eGFR Calculation mL/min/1.73m2 () (test code = 5546260710) DIANE (test code = DIANE) Association of [...] tests). Lab Interpretation Abnormal (test code = 96458-3) [facility]2020-10-28 15:06:00 Test Item Value Reference Range Interpretation Comments MAGNESIUM (test code = 2332971626) 1.9 mg/dL 1.7-2.4 Lab Interpretation (test code = Normal 79853-5) [facility]2020-10-28 15:06:00 Test Item Value Reference Range Interpretation Comments PHOSPHORUS (test code = 6086325034) 3.1 mg/dL 2.5-5 Lab Interpretation (test code = Normal 32942-0) [facility] GLUCOSE (AUTOMATED)2020-03-18 12:49:00 Test Item Value Reference Range Interpretation Comments POCT GLU (test code = 3860492665) 170 mg/dL 70-110 H Lab Interpretation (test code = Abnormal 38513-9) [facility] GLUCOSE (AUTOMATED)2020-03-18 08:54:00 Test Item Value Reference Range Interpretation Comments POCT GLU (test code = 183 mg/dL 70-110 H Notifi ed Provider 2710413609) Lab Interpretation (test Abnormal code = 00638-8) [facility] GLUCOSE (AUTOMATED)2020-03-18 05:12:00 Test Item Value Reference Range Interpretation Comments POCT GLU (test code = 189 mg/dL 70-110 H Notifi ed Provider 8587053790) Lab Interpretation (test Abnormal code = 63972-2) [facility] and Screen - ONCE [id number] 04:11:19 Test Item Value Reference Range Interpretation Comments ABO & RH (test code O POSITIVE Performe d at [facility] = 20) Laboratory Serv [facility] Blood Bank3 [address] [facility] [address]Yyas Free: [phone] A No. [id number] IAT (test code = Negative Performed a t [facility] 1185) Laboratory Serv [facility] Blood Bank3 [address] [facility] s [address]Ydtx Free: [phone] A No. [id number] [facility] GLUCOSE (AUTOMATED)2020-03-18 03:20:00 Test Item Value Reference Range Interpretation Comments POCT GLU (test code = 2200468178) 169 mg/dL 70-110 H Lab Interpretation (test code = Abnormal 53665-5) [facility] GLUCOSE (AUTOMATED)2020-03-18 01:48:00 Test Item Value Reference Range Interpretation Comments POCT GLU (test code = 0286626980) 170 mg/dL 70-110 H Lab Interpretation (test code = Abnormal 42364-0) [facility] GLUCOSE (AUTOMATED)2020-03-17 17:13:00 Test Item Value Reference Range Interpretation Comments POCT GLU (test code = 148 mg/dL 70-110 H Notifi ed Provider 7605382448) Lab Interpretation (test Abnormal code = 86638-2) [facility] GLUCOSE (AUTOMATED)2020-03-17 13:13:00 Test Item Value Reference Range Interpretation Comments POCT GLU (test code = 167 mg/dL 70-110 H Notifi ed Provider 8467677231) Lab Interpretation (test Abnormal code = 50090-0) [facility]inte[facility]comycin Trough Level - Draw within 30 minutes prior to 4TH dose.2020-03-17 10:44:00 Test Item Value Reference Range Interpretation Comments VANCO TROUGH (test code 5.0 ug/mL 10-20 L = 0894065278) DIANE (test code = DIANE) Toxic Range: ?>20 ug/mL 15-20 ug/mL is recommended for severe infection or when Vancomycin MILLICENT is greater than or equal to 2. Lab Interpretation (test Abnormal code = 66635-4) [facility] with [id number] 10:21:00 Test Item Value Reference Range Interpretation Comments WBC (test code = See_Comment H [Automated 9190-2) message] The system which generated this result transmit ludmila reference range : 4.20 - 10.70 10*3/?L. The reference range was not used to interpret this result as normal/abnormal . RBC (test code = See_Comment L [Automated 009-8) message] The system which generated this result [...] RDW-SD (test code = 43.5 fL 38.5-51.6 48285-3) RDW-CV (test code = 14.1 % 12.1-15.4 788-0) PLT (test code = See_Comment H [Automated 777-3) message] The system which generated this result transmit ludmila reference range : 150 - 328 10*3/ ?L. The reference range was not u sed to interpret th is result as normal/abnormal . MPV (test code = 10.3 fL 9.8-13 76129-1) NRBC/100 WBC (test See_Comment [Automat ed code = 0380414293) message] The system which generated this result transmit ludmila reference range : 0.0 - 10.0 /100 WBCs. The reference range was not used to interpret this result as normal/abnormal . NRBC x10^3 (test code <0.01 See_Comment [Auto mated = 2976572901) message] The system which generated this result transmit ludmila reference range : 10*3/?L. The reference range was not used to interpret this result as normal/abnormal . SEG % (test code = 65 % 33-76 19314-2) BAND % (test code = 29 % 0-1 H 20561-9) MYELO % (test code = 2 % See_Comment H [Autom ated 79192-5) message] The system which generated this result transmit ludmila reference range : <=0. The refere nce range was not u sed to interpret th is result as normal/abnormal . LYMPH % (test code = 4 % 14-54 L 89129-7) ANC (test code = 22.23 10*3/uL 1.99-6.95 H 6999376856) PLT ESTIMATE (test Increased Normal A code = 9317-9) Lab Interpretation Abnormal (test code = 87878-2) [facility] Metabolic Panel (NA, K, CL, CO2, GLUCOSE, BUN, CREATININE, CA)2020-03-17 09:49:00 Test Item Value Reference Range Interpretation Comments NA (test code = 134 mmol/L 135-145 L 8185590698) K (test code = 3.9 mmol/L 3.5-5 4761908741) CL (test code = 109 mmol/L 98-108 H 5874228535) CO2 TOTAL (test code = 16 mmol/L 23-31 L 2030311703) AGAP (test code = 2-16 0900384111) BUN (test code = 32 mg/dL 7-23 H 9477538449) GLUCOSE (test code = 176 mg/dL 70-110 H 3447171353) CREATININE (test code = 1.16 mg/dL 0.6-1.25 8306603282) CALCIUM (test code = 7.6 mg/dL 8.6-10.6 L 4183737259) eGFR Calculation mL/min/1.73m2 (Non-) (test code = 0671835841) eGFR Calculation mL/min/1.73m2 () (test code = 0569896676) DIANE (test code = DIANE) Association of [...] tests). Lab Interpretation Abnormal (test code = 32092-2) [facility]IV[facility] PART[facility] THRMPLAS [id number] 09:44:00 Test Item Value Reference Range Interpretation Comments APTT Patient (test See_Comment H [Automat ed code = 3173-2) message] The system which generated this result transmitted reference range : 23 - 38 Seconds . The reference range was not used to interpr et this result as normal/abnormal . DIANE (test code = DIANE) The [facility] patient population mean normal value for aPTT is 30 seconds. Lab Interpretation Abnormal (test code = 34577-1) [facility] GLUCOSE (AUTOMATED)2020-03-17 09:14:00 Test Item Value Reference Range Interpretation Comments POCT GLU (test code = 9756099585) 179 mg/dL 70-110 H Lab Interpretation (test code = Abnormal 76309-4) [facility] GLUCOSE (AUTOMATED)2020-03-17 05:09:00 Test Item Value Reference Range Interpretation Comments POCT GLU (test code = 1094109578) 232 mg/dL 70-110 H Lab Interpretation (test code = Abnormal 94080-2) [facility] GLUCOSE (AUTOMATED)2020-03-17 05:09:00 Test Item Value Reference Range Interpretation Comments POCT GLU (test code = 7909602765) 207 mg/dL 70-110 H Lab Interpretation (test code = Abnormal 63570-4) [facility] PART[facility] THRMPLAS [id number] 04:48:00 Test Item Value Reference Range Interpretation Comments APTT Patient (test See_Comment H [Automat ed code = 3173-2) message] The system which generated this result transmitted reference range : 23 - 38 Seconds . The reference range was not used to interpr et this result as normal/abnormal . DIANE (test code = DIANE) The [facility] patient population mean normal value for aPTT is 30 seconds. Lab Interpretation Abnormal (test code = 70010-5) [facility]inteGRAM NEGATIVE BLOOD PATHOGENS DNA [id number] 02:54:00 Test Item Value Reference Range Interpretation Comments Escherichia coli (test Positive Negative, See A code = 24082-7) Comment/Narrative DIANE (test code = DIANE) See blood culture result for additional information. ?Testing included eight identification and six resistance marker targets. Lab Interpretation Abnormal (test code = 45921-9) [facility]LAB ONLY COVID [id number] 00:47:00COVID DMT InterpretationInterpretation/Recommendations:Tests (PCR) for Active Infection [...] would beimportant to perform if the IgM tvmo-UZICL-17 antibody test is positive. B. ?A test [...] based upon aggregate data pooled from the [facility] medical record includingboth current and prior COVID-19 related testing results for the following tests: SARS-CoV-2 PCR, SARS-CoV-2 Rapid ID NOW, CoV-2 IgM, and CoV-2 IgG. These interpretations are autopopulated into [facility] based on computerized algorithms matching an interpretation [...] be tested with alternative PCR molecular test. [facility] LABORATORY SERVICESCOVID OlfowovFTIH-XaY-6 Rapid ID NOW (no units) ? ? Date ? Value ? 03/16/2020 ? Not Detected ? ? ? 02/03/2020 ? Not Detected ? ? ? 11/16/2019 ? Not Detected ? ? ? 09/17/2019 ? Not Detected ? [facility]inteType and Screen - ONCE [id number] 00:17:40 Test Item Value Reference Range Interpretation Comments ABO & RH (test code O Positive Performe d at [facility] = 20) Laboratory [facility] Blood Bank[address] [place] [id number] Free: [phone] A No. [id number] IAT (test code = Negative Performed a t [facility] 1185) Laboratory [facility] Blood [address] [place] [address]Zanx Free: [phone] A No. [id number] [facility] METABOLIC PANEL (NA, K, CL, CO2, GLUCOSE, BUN, CREATININE, CA)2020-03-16 22:48:00 Test Item Value Reference Range Interpretation Comments NA (test code = 134 mmol/L 135-145 L 3204754789) K (test code = 3.5 mmol/L 3.5-5 3578757128) CL (test code = 106 mmol/L 98-108 0833937051) CO2 TOTAL (test code = 15 mmol/L 23-31 L 4079529219) AGAP (test code = 2-16 5031832014) BUN (test code = 37 mg/dL 7-23 H 5447900254) GLUCOSE (test code = 226 mg/dL 70-110 H 0901738094) CREATININE (test code = 1.37 mg/dL 0.6-1.25 H 6652505904) CALCIUM (test code = 7.4 mg/dL 8.6-10.6 L 3090576628) eGFR Calculation mL/min/1.73m2 (Non-) (test code = 3152499501) eGFR Calculation mL/min/1.73m2 () (test code = 9748356646) DIANE (test code = DIANE) Association of [...] tests). Lab Interpretation Abnormal (test code = 96724-2) [facility]2020-03-16 22:04:00 Test Item Value Reference Range Interpretation Comments POCT GLU (test code = 7436072242) 232 mg/dL 70-110 H Lab Interpretation (test code = Abnormal 27879-8) [facility] (for use with Heparin Drip)2020-03-16 21:55:00 Test Item Value Reference Range Interpretation Comments APTT Patient (test See_Comment HH [Automat ed code = 3173-2) message] The system which generated this result transmitted reference range : 23 - 38 Seconds . The reference range was not used to interpr et this result as normal/abnormal . DIANE (test code = DIANE) The [facility] patient population mean normal value for aPTT is 30 seconds. Lab Interpretation Abnormal (test code = 99202-7) [facility]inteUS RETROPERITONEAL [id number] 17:51:51 Essentially normal renal ultrasound except for [...] thickness. Partially visualized liver appears diffusely steatotic. [facility], Radiant Results Inft User - 03/16/2020 12:52 [...] outlet obstruction.Correlate with UA.Partially visualized diffuse hepatic steatosis.[facility]2020-03-16 16:55:00 Test Item Value Reference Range Interpretation Comments POCT GLU (test code = 246 mg/dL 70-110 H Notifi ed Provider [id number]) Lab Interpretation (test Abnormal code = 70768-8) [facility]2020-10-26 16:20:00 Test Item Value Reference Range Interpretation Comments APPEARANCE (test code = Hazy Clear A 5214111523) COLOR (test code = Yellow Yellow 7218738370) PH (test code = 4.8-8.0 9499647898) SP GRAVITY (test code = 1.003-1.030 7911592875) GLU U QUAL (test code = 150 mg/dL Normal A 7452973235) BLOOD (test code = Negative Negative 0809215023) KETONES (test code = Negative Negative 0739212724) PROTEIN (test code = 30 mg/dL Negative A 2887-8) UROBILIN (test code = Normal Normal 1018231753) BILIRUBIN (test code = Negative Negative 5088821795) NITRITE (test code = Negative Negative 0641463014) LEUK PETER (test code = Negative Negative 8230037119) RBC/HPF (test code = See_Comment H [Autom ated message] 0452579697) The system [facility] generated this result transmit ludmila reference range : 0 - 3 HPF. The refe rence range was not u sed to interpret th is result as normal/abnormal . WBC/HPF (test code = See_Comment H [Autom ated message] 5228635313) The system [facility] generated this result transmit ludmila reference range : 0 - 5 HPF. The refe rence range was not u sed to interpret th is result as normal/abnormal . BACTERIA (test code = Negative Negative 4991258368) AMORPHOUS (test code = Rare Rare HPF 8163402228) HYAL CAST (test code = See_Comment H [Aut omated message] 8213926551) The system [facility] generated this result transmit ludmila reference range : <=2 LPF. The refere nce range was not u sed to interpret th is result as normal/abnormal . Lab Interpretation (test Abnormal code = 60598-9) [facility]2020-03-16 16:06:00 Test Item Value Reference Range Interpretation Comments POCT GLU (test code = 286 mg/dL 70-110 H Notifi ed Provider [id number]) Lab Interpretation (test Abnormal code = 79325-2) [facility]inteLOW-DENSITY LIPOPROTEIN, [id number] 15:25:00 Test Item Value Reference Range Interpretation Comments dLDL Chol (test code = 41683-2) 42 mg/dL <130 Lab Interpretation (test code = Normal 37417-2) [facility]URIC [id number] 15:15:00 Test Item Value Reference Range Interpretation Comments URIC ACID (test code = 5534074514) 10.1 mg/dL 3.6-8 H Lab Interpretation (test code = Abnormal 32763-8) [facility]inteMAGNESIUM2020-10-26 15:07:00 Test Item Value Reference Range Interpretation Comments MAGNESIUM (test code = 8049350594) 2.0 mg/dL 1.7-2.4 Lab Interpretation (test code = Normal 44838-0) [facility]intePHOSPHORUS2020-10-26 15:07:00 Test Item Value Reference Range Interpretation Comments PHOSPHORUS (test code = 9497490773) 4.0 mg/dL 2.5-5 Lab Interpretation (test code = Normal 28571-1) [facility]inteBASI METABOLIC PANEL (NA, K, CL, CO2, GLUCOSE, BUN, CREATININE, CA)2020-03-16 14:51:00 Test Item Value Reference Range Interpretation Comments NA (test code = 135 mmol/L 135-145 4700681125) K (test code = 2.7 mmol/L 3.5-5 LL 8764565898) CL (test code = 107 mmol/L 98-108 5170025648) CO2 TOTAL (test code = 17 mmol/L 23-31 L 1144485309) AGAP (test code = 2-16 9082058091) BUN (test code = 39 mg/dL 7-23 H 5261011663) GLUCOSE (test code = 259 mg/dL 70-110 H 3330524815) CREATININE (test code = 1.46 mg/dL 0.6-1.25 H 1961724655) CALCIUM (test code = 7.3 mg/dL 8.6-10.6 L 6382662744) eGFR Calculation mL/min/1.73m2 (Non-) (test code = 1402487417) eGFR Calculation mL/min/1.73m2 () (test code = 7763003645) DIANE (test code = DIANE) Association of [...] tests). Lab Interpretation Abnormal (test code = 38264-6) [facility]aPTT2020-10-26 14:49:00 Test Item Value Reference Range Interpretation Comments APTT Patient (test See_Comment [Automat ed code = 3173-2) message] The system which generated this result transmitted reference range : 23 - 38 Seconds . The reference range was not used to interpr et this result as normal/abnormal . DIANE (test code = DIANE) The [facility] patient population mean normal value for aPTT is 30 seconds. Lab Interpretation Normal (test code = 88044-3) [facility] PointeProthrombin Time (PT) / [id number] 14:47:00 Test Item Value Reference Range Interpretation [...] tions. Lab Interpretation (test Abnormal code = 84207-1) [facility]inteXR CHEST 1 [id number] 13:17:23 No acute cardiopulmonary process. Preliminary Report Dictated by Resident: aMngo Mitchell MD., have reviewed this study and [...] 03/16/2020 8:18 AM CDTEXAM: XR CHEST 1 03/16/2020 3:36 AMHISTORY: 59 years-old Male with [...] this study and agree with theabove report. 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 Skin defect in the medial heel with extensive softtissue swelling and gas, including deep to the plantar fascia. Intra- articular gas in the subtalar joint may represent septic arthritis. Preliminary Report Dictated by Resident: Sergio Thomas I, Lexi Saini MD., have reviewed this study and agree [...] this study and agree with the abovereport. [facility]XR FOOT <3 VW [id number] 11:29:14 Skin defect and subcutaneous gas in [...] reviewed this study and agree with the abovereport.[facility] PointeFERRITIN [id number] 10:07:00 Test Item Value Reference Range Interpretation Comments FERRITIN (test code = 255.0 ng/mL 18-427 0076856096) DIANE (test code = DIANE) Biotin has been reported to cause a negative bias, interpret results relative to patient's use of biotin. Lab Interpretation (test Normal code = 63094-5) [facility] PointeTROPONIN [id number] 09:44:00 Test Item Value Reference Range Interpretation Comments TROPONIN I (test 0.020 ng/mL See_Comment [Automated code = 8704949192) message] The system which generated this result [...] ? Lab Interpretation Normal (test code = 39294-4) [facility]inteN-TERMINAL [id number] 09:41:00 Test Item Value Reference Range Interpretation Comments NT-proBNP (test code 2680 pg/mL See_Comment H [Autom ated = 3807581724) message] The system which generated this result transmitted reference range : <=125. The reference range was not used to interpret this result as normal/abnormal . DIANE (test code = DIANE) Biotin has been reported to cause a negative bias, interpret results relative to patient's use of biotin. Lab Interpretation Abnormal (test code = 75651-1) [facility] PointeIRON2020-10-26 09:31:00 Test Item Value Reference Range Interpretation Comments IRON (test code = 8231603612) 11 ug/dL 50-160 L Lab Interpretation (test code = Abnormal 68171-3) [facility]inteTHYROID STIMULATING [id number] 09:05:00 Test Item Value Reference Range Interpretation Comments TSH (test code = See_Comment [Automated message] 7726314172) The system [facility] generated this result transmitted ref erence range: 0.45 - 4 .70 mIU/L. The refe rence range was not u sed to interpret this result as normal/abnor mal. Lab Interpretation (test Normal code = 21366-1) [facility] PointeLactic Acid Whole [id number] 08:28:00 Test Item Value Reference Range Interpretation Comments LACTIC ACID (test code = 2.60 mmol/L 0048912863) [facility]inteCOVID-19 (ID NOW RAPID TESTING)2020-03-16 08:08:00 Test Item Value Reference Range Interpretation Comments SARS-CoV-2 Rapid ID NOW Not Detected Not Detected (test code = 88896-2) DIANE (test code = DIANE) ID NOW COVID-19 Assay is an isothermal nucleic acid amplification test intended for the qualitative detection of nucleic acid from SARS-CoV-2 viral RNA in nasopharyngeal ([employer]) specimens. It is used under Emergency Use [...] indicated. Lab Interpretation Normal (test code = 52520-0) [facility] PointeSEDIMENTATION [id number] 07:43:00 Test Item Value Reference Range Interpretation Comments ESR (test code = See_Comment H [Automated message] 3864633966) The system [facility] generated this result transmitted ref erence range: 0 - 10 m m/HR. The reference r batshvea was not used to interpret this result as normal/abnor mal. Lab Interpretation (test Abnormal code = 21699-6) [facility]inteGLYCOSYLATED HEMOGLOBIN (A1C)2020-03-16 07:36:00 Test Item Value Reference Range Interpretation Comments HGB A1C (test code = 10.8 % 4-6 H 4548-4) DIANE (test code = DIANE) %A1C (NGSP) Interpretation (ADA)4.8-5.6 ? ? Normal or (Non-Diabetic Range)5.7-6.4 ? ? Increased Risk (Pre-Diabetic)>6.5 ?Diabetes Indicated Lab Interpretation Abnormal (test code = 53579-1) [facility] PointeLIPID PANEL (49372)(TOTAL CHOLESTEROL, TRIGLYCERIDES, HDL)2020-03-16 07:34:00 Test Item Value Reference Range Interpretation Comments CHOL (test code = 174 mg/dL 120-200 4024861676) HDL (test code = 13 mg/dL >40 L 8738956061) HDLC RATIO (test code = See_Comment H [Au tomated message] 1591721497) The system [facility] generated this result transmitted ref erence range: <=5.0. T he reference range was not used to int erpret this result as normal/abnormal . TRIG (test code = 490 mg/dL 30-170 H 8166257149) LDL CHOL (test code = Unable to calculate 87402-8) LDL due to elev ated triglyceride le haile greater than 40 0 mg/dL. VLDL (test code = 98 mg/dL 5-60 H 1157675377) Lab Interpretation Abnormal (test code = 04152-0) [facility]inteCOMP. METABOLIC PANEL (45817)2020-03-16 06:40:00 Test Item Value Reference Range Interpretation Comments NA (test code = 134 mmol/L 135-145 L 3854512679) K (test code = 4.1 mmol/L 3.5-5 2770876184) CL (test code = 100 mmol/L 98-108 9994982503) CO2 TOTAL (test code = 16 mmol/L 23-31 L 7853230327) AGAP (test code = 2-16 H 0318684122) BUN (test code = 41 mg/dL 7-23 H 2535946194) GLUCOSE (test code = 382 mg/dL 70-110 H 2647747086) CREATININE (test code = 1.74 mg/dL 0.6-1.25 H 5240883668) TOTAL BILI (test code = 0.6 mg/dL 0.1-1.9 9990502260) CALCIUM (test code = 8.6 mg/dL 8.6-10.6 0851317541) T PROTEIN (test code = 6.5 g/dL 6.3-8.2 6274068471) ALBUMIN (test code = 3.1 g/dL 3.5-5 L 2361755823) ALK PHOS (test code = 196 U/L 34-122 H 1580489794) ALTv (test code = 61 U/L 5-50 H 1742-6) AST(SGOT) (test code = 63 U/L 13-40 H 8051966713) eGFR Calculation mL/min/1.73m2 (Non-) (test code = 6757616288) eGFR Calculation mL/min/1.73m2 () (test code = 3671966389) DIANE (test code = DIANE) Association of [...] tests). Lab Interpretation Abnormal (test code = 95195-0) [facility] WITH [id number] 06:28:00 Test Item Value Reference Range Interpretation [...] RDW-SD (test code = 38.5 fL 38.5-51.6 06188-7) RDW-CV (test code = 13.0 % 12.1-15.4 788-0) PLT (test code = See_Comment H [Automated 777-3) message] The system which generated this result transmit ludmila reference range : 150 - 328 10*3/ ?L. The reference range was not u sed to interpret th is result as normal/abnormal . MPV (test code = 10.6 fL 9.8-13 01193-4) NRBC/100 WBC (test See_Comment [Automat ed code = 8162973933) message] The system which generated this result transmit ludmila reference range : 0.0 - 10.0 /100 WBCs. The reference range was not used to interpret this result as normal/abnormal . NRBC x10^3 (test code <0.01 See_Comment [Auto mated = 2413248555) message] The system which generated this result transmit ludmila reference range : 10*3/?L. The reference range was not used to interpret this result as normal/abnormal . GRAN MAT (NEUT) % 82.8 % (test code = 770-8) IMM GRAN % (test code 3.40 % = 7183716184) LYMPH % (test code = 7.1 % 736-9) MONO % (test code = 4.9 % 5905-5) EOS % (test code = 1.2 % 713-8) BASO % (test code = 0.6 % 706-2) GRAN MAT x10^3(ANC) 16.00 10*3/uL 1.99-6.95 H (test code = 0306232265) IMM GRAN x10^3 (test 0.65 10*3/uL 0-0.06 H code = 0033228687) LYMPH x10^3 (test code 1.38 10*3/uL 1.09-3.23 = 731-0) MONO x10^3 (test code 0.94 10*3/uL 0.36-1.02 = 742-7) EOS x10^3 (test code = 0.23 10*3/uL 0.06-0.53 711-2) BASO x10^3 (test code 0.11 10*3/uL 0.01-0.09 H = 704-7) Lab Interpretation Abnormal (test code = 50130-9) [facility]inteLamtic Acid Whole [id number] 06:14:00 Test Item Value Reference Range Interpretation Comments LACTIC ACID (test code = 4.72 mmol/L 6032020668) [facility] GLUCOSE (AUTOMATED)2020-02-05 17:03:00 Test Item Value Reference Range Interpretation Comments POCT GLU (test code = 2828091987) 173 mg/dL 70-110 H Lab Interpretation (test code = Abnormal 42929-8) [facility] GLUCOSE (AUTOMATED)2020-02-05 15:44:00 Test Item Value Reference Range Interpretation Comments POCT GLU (test code = 9099744439) 127 mg/dL 70-110 H Lab Interpretation (test code = Abnormal 01108-8) [facility]ATED)2020-02-05 12:58:00 Test Item Value Reference Range Interpretation Comments POCT GLU (test code = 6480935961) 112 mg/dL 70-110 H Lab Interpretation (test code = Abnormal 66532-9) [facility]inteTROPONIN [id number] 10:31:00 Test Item Value Reference Range Interpretation Comments TROPONIN I (test 0.022 ng/mL See_Comment [Automated code = 4681865958) message] The system which generated this result [...] ? Lab Interpretation Normal (test code = 78092-9) [facility]inteN-TERMINAL [id number] 10:28:00 Test Item Value Reference Range Interpretation Comments NT-proBNP (test code 1840 pg/mL See_Comment H [Autom ated = 4639850854) message] The system which generated this result transmitted reference range : <=125. The reference range was not used to interpret this result as normal/abnormal . DIANE (test code = DIANE) Biotin has been reported to cause a negative bias, interpret results relative to patient's use of biotin. Lab Interpretation Abnormal (test code = 19545-4) [facility] (NA, K, CL, CO2, GLUCOSE, BUN, CREATININE, CA)2020-02-05 10:23:00 Test Item Value Reference Range Interpretation Comments NA (test code = 139 mmol/L 135-145 3701525051) K (test code = 3.5 mmol/L 3.5-5 3396302736) CL (test code = 102 mmol/L 98-108 9818165228) CO2 TOTAL (test code = 28 mmol/L 23-31 4057363388) AGAP (test code = 2-16 1167687184) BUN (test code = 20 mg/dL 7-23 5189609560) GLUCOSE (test code = 138 mg/dL 70-110 H 0553036291) CREATININE (test code = 1.16 mg/dL 0.6-1.25 9585155255) CALCIUM (test code = 8.8 mg/dL 8.6-10.6 7485326696) eGFR Calculation mL/min/1.73m2 (Non-) (test code = 7755139259) eGFR Calculation mL/min/1.73m2 () (test code = 9208437649) DIANE (test code = DIANE) Association of [...] tests). Lab Interpretation Abnormal (test code = 91573-3) [facility]inteURIC [id number] 10:23:00 Test Item Value Reference Range Interpretation Comments URIC ACID (test code = 3274526434) 9.1 mg/dL 3.6-8 H Lab Interpretation (test code = Abnormal 61651-0) [facility] WITH [id number] 09:46:00 Test Item Value Reference Range Interpretation [...] RDW-SD (test code = 43.9 fL 38.5-51.6 13240-3) RDW-CV (test code = 13.5 % 12.1-15.4 788-0) PLT (test code = See_Comment [Automated 777-3) message] The sy stem which generated this result transmitted reference range : 150 - 328 10*3/ ?L. The reference r batsheva was not used to interpret this result as normal/abnormal . MPV (test code = 10.9 fL 9.8-13 33393-7) NRBC/100 WBC (test See_Comment [Automat ed code = 2431736025) message] The system which generated this result transmitted reference range : 0.0 - 10.0 /100 WBCs. The refer ence range was not u sed to interpret th is result as normal/abnormal . NRBC x10^3 (test code <0.01 See_Comment [Auto mated = 4781267282) message] The s ystem which generated this result transmitted reference range : 10*3/?L. The reference range was not used to interpret this result as normal/abnormal . GRAN MAT (NEUT) % 63.9 % (test code = 770-8) IMM GRAN % (test code 0.30 % = 4711575525) LYMPH % (test code = 21.1 % 736-9) MONO % (test code = 10.9 % 5905-5) EOS % (test code = 3.4 % 713-8) BASO % (test code = 0.4 % 706-2) GRAN MAT x10^3(ANC) 4.51 10*3/uL 1.99-6.95 (test code = 4215422658) IMM GRAN x10^3 (test <0.03 0-0.06 code = 0645783136) LYMPH x10^3 (test code 1.49 10*3/uL 1.09-3.23 = 731-0) MONO x10^3 (test code 0.77 10*3/uL 0.36-1.02 = 742-7) EOS x10^3 (test code = 0.24 10*3/uL 0.06-0.53 711-2) BASO x10^3 (test code 0.03 10*3/uL 0.01-0.09 = 704-7) Lab Interpretation Abnormal (test code = 32529-9) [facility] GLU[facility]SE (AUTOMATED)2020-02-05 09:40:00 Test Item Value Reference Range Interpretation Comments POCT GLU (test code = 5195202237) 124 mg/dL 70-110 H Lab Interpretation (test code = Abnormal 16004-3) [facility]inteUREA NITROGEN, URINE [id number] 05:55:00 Test Item Value Reference Range Interpretation Comments UREA N UR (test code = 6795514254) 119 mg/dL [facility] PointeLIPID PANEL (01476)(TOTAL CHOLESTEROL, TRIGLYCERIDES, HDL)2020-02-05 03:54:00 Test Item Value Reference Range Interpretation Comments CHOL (test code = 187 mg/dL 120-200 5631544265) HDL (test code = 32 mg/dL >40 L 7989785400) HDLC RATIO (test code = See_Comment H [Au tomated message] 9700979105) The system [facility] generated this result transmit ludmila reference range : <=5.0. The refe rence range was not u sed to interpret th is result as normal/abnormal . TRIG (test code = 164 mg/dL 30-170 4856130740) LDL CHOL (test code = 122 mg/dL See_Comment [Auto mated message] 20755-1) The system [facility] generated this result transmit ludmila reference range : <=160. The refe rence range was not u sed to interpret th is result as normal/abnormal . VLDL (test code = 33 mg/dL 5-60 5699148634) Lab Interpretation (test Abnormal code = 29617-6) [facility]intePROTEIN CREAT RATIO URINE [id number] 23:54:00 Test Item Value Reference Range Interpretation Comments T. PROT U (test code 22 mg/dL = 2888-6) CREAT U (test code = 27.1 mg/dL 5389783322) Protein/Creatinine 0.0-2.0 Ratio Urine (test code = 9135797499) DIANE (test code = DIANE) Random Urine Total Protein Reference Ranges Random Specimen: ? Less than 10 mg/dLFirst Morning Specimen: ? ?Less than 20 mg/dL ? [facility]inteSODIUM, URINE [id number] 23:35:00 Test Item Value Reference Range Interpretation Comments NA URINE (test code = 7393599641) 130 mmol/L [facility]intePOCT GLUCOSE (AUTOMATED)2020-02-04 21:42:00 Test Item Value Reference Range Interpretation Comments POCT GLU (test code = 4041379078) 214 mg/dL 70-110 H Lab Interpretation (test code = Abnormal 93331-0) [facility] PointeTROPONIN [id number] 18:36:00 Test Item Value Reference Range Interpretation Comments TROPONIN I (test 0.021 ng/mL See_Comment [Automated code = 2292334666) message] The system which generated this result [...] ? Lab Interpretation Normal (test code = 83145-2) [facility] PointePROCALCITONIN2020-09-15 18:03:00 Test Item Value Reference Range Interpretation Comments Procalcitonin (test 0.02 ng/mL <0.07 code = 7212537182) DIANE (test code = DIANE) INTERPRETATION OF [...] lung abscess/empyema. For further information please refer to:[email or web address] Lab Interpretation Normal (test code = 69010-6) [facility]intePOCT GLUCOSE (AUTOMATED)2020-02-04 17:22:00 Test Item Value Reference Range Interpretation Comments Lab Interpretation (test code = Abnormal 24735-0) [facility] PointeVITAMIN B12, [id number] 17:13:00 Test Item Value Reference Range Interpretation Comments VIT B12 (test code = 428 pg/mL 240-930 4727998705) DIANE (test code = DIANE) Biotin has been reported to cause a positive bias, interpret results relative to patient's use of biotin. Lab Interpretation (test Normal code = 04184-0) [facility] PointeVITAMIN D, [id number] 16:59:00 Test Item Value Reference Range Interpretation Comments VIT D 25OH (test code = 20 ng/mL 25-80 L 28805-5) DIANE (test code = DIANE) Deficiency: <20 ng/mLInsufficiency: 20-24 ng/mLOptimal: 25-80 ng/mL Lab Interpretation (test Abnormal code = 27132-4) [facility]inteXR FOOT 3+ VW [id number] 13:07:34HISTORY: Left heel ulcer and wound. FINDINGS: [...] or signs of osteomyelitis inthe left foot bones.[facility] GLUCOSE (AUTOMATED)2020-02-04 13:04:00 Test Item Value Reference Range Interpretation Comments POCT GLU (test code = 1193414242) 232 mg/dL 70-110 H Lab Interpretation (test code = Abnormal 30844-0) [facility]inteXR CHEST 1 [id number] 12:54:48HISTORY: CHF. TECHNIQUE: Portable AP view of [...] CONCLUSIONS: Mild cardiomegaly and small left pleural effusion.[facility], Radiant Results Inft 02/04/2020 7:55 AM CDTHISTORY: C HF.TECHNIQUE: Portable [...] artery.CONCLUSIONS: Mild cardiomegaly and small left pleural effusion.[facility] PointeABORH [id number] 10:33:05 Test Item Value Reference Range Interpretation Comments ABO & RH (test code O Positive Performe d at [facility] = 20) Laboratory Serv [facility] [place] [phone] Free: [phone] A No. [id number] [facility] GLUCOSE (AUTOMATED)2020-02-04 08:45:00 Test Item Value Reference Range Interpretation Comments POCT GLU (test code = 5201150570) 141 mg/dL 70-110 H Lab Interpretation (test code = Abnormal 05155-8) [facility]inteTROPONIN [id number] 08:34:00 Test Item Value Reference Range Interpretation Comments TROPONIN I (test 0.039 ng/mL See_Comment H [Automated code = 5877926240) message] The system which generated this result [...] ? Lab Interpretation Abnormal (test code = 87985-1) [facility] [id number] 08:31:00 Test Item Value Reference Range Interpretation Comments IRON (test code = 6359378317) 38 ug/dL 50-160 L TIBC (test code = 0376170503) 352 ug/dL 250-410 % FE SAT (test code = 9464723573) 11 % 20-50 L Lab Interpretation (test code = Abnormal 89203-7) [facility]inteN-TERMINAL [id number] 08:31:00 Test Item Value Reference Range Interpretation Comments NT-proBNP (test code 1920 pg/mL See_Comment H [Autom ated = 3727752738) message] The system which generated this result transmitted reference range : <=125. The reference range was not used to interpret this result as normal/abnormal . DIANE (test code = DIANE) Biotin has been reported to cause a negative bias, interpret results relative to patient's use of biotin. Lab Interpretation Abnormal (test code = 72239-7) [facility]inteLactate [id number] 08:22:00 Test Item Value Reference Range Interpretation Comments LDH (test code = 9158899010) 590 U/L 300-600 Lab Interpretation (test code = Normal 96746-8) [facility] METABOLIC PANEL (NA, K, CL, CO2, GLUCOSE, BUN, CREATININE, CA)2020-02-04 08:22:00 Test Item Value Reference Range Interpretation Comments NA (test code = 140 mmol/L 135-145 4485505230) K (test code = 4.0 mmol/L 3.5-5 0129235070) CL (test code = 106 mmol/L 98-108 8793225666) CO2 TOTAL (test code = 27 mmol/L 23-31 0910105686) AGAP (test code = 2-16 0961144671) BUN (test code = 12 mg/dL 7-23 4809391082) GLUCOSE (test code = 150 mg/dL 70-110 H 9481352197) CREATININE (test code = 0.91 mg/dL 0.6-1.25 9294743800) CALCIUM (test code = 9.0 mg/dL 8.6-10.6 3536933530) eGFR Calculation mL/min/1.73m2 (Non-) (test code = 6338293672) eGFR Calculation mL/min/1.73m2 () (test code = 7496352287) DIANE (test code = DIANE) Association of [...] tests). Lab Interpretation Abnormal (test code = 52317-1) [facility]inteURIC [id number] 08:22:00 Test Item Value Reference Range Interpretation Comments URIC ACID (test code = 7691720247) 7.7 mg/dL 3.6-8 Lab Interpretation (test code = Normal 80394-2) [facility]inteType and Screen - ONCE [id number] 08:06:05 Test Item Value Reference Range Interpretation Comments ABO & RH (test code O Positive Performe d at [facility] = 20) Laboratory Serv [facility]1 [address] [place], [place] [id number] Free: [phone] A No. [id number] IAT (test code = Negative Performed a t [facility] 1185) Laboratory Serv [facility] [address] [place], [place] [id number] Free: [phone] A No. [id number] [facility]inteCBC WITH [id number] 07:08:00 Test Item Value Reference Range Interpretation Comments WBC (test code = See_Comment [Automated 2190-2) message] The sy stem which generated this result transmitted reference range : 4.20 - 10.70 10*3/?L. The reference range was not used to interpret this result as normal/abnormal . RBC (test code = See_Comment L [Automated 009-8) message] The sy stem which generated this [...] RDW-SD (test code = 45.0 fL 38.5-51.6 11978-6) RDW-CV (test code = 13.7 % 12.1-15.4 788-0) PLT (test code = See_Comment [Automated 777-3) message] The sy stem which generated this result transmitted reference range : 150 - 328 10*3/ ?L. The reference r batsheva was not used to interpret this result as normal/abnormal . MPV (test code = 9.8 fL 9.8-13 46462-3) NRBC/100 WBC (test See_Comment [Automat ed code = 5890153456) message] The system which generated this result transmitted reference range : 0.0 - 10.0 /100 WBCs. The refer ence range was not u sed to interpret th is result as normal/abnormal . NRBC x10^3 (test code <0.01 See_Comment [Auto mated = 9625843672) message] The s ystem which generated this result transmitted reference range : 10*3/?L. The reference range was not used to interpret this result as normal/abnormal . GRAN MAT (NEUT) % 50.8 % (test code = 770-8) IMM GRAN % (test code 0.20 % = 6511473818) LYMPH % (test code = 34.0 % 736-9) MONO % (test code = 9.8 % 5905-5) EOS % (test code = 4.8 % 713-8) BASO % (test code = 0.4 % 706-2) GRAN MAT x10^3(ANC) 2.87 10*3/uL 1.99-6.95 (test code = 6438244308) IMM GRAN x10^3 (test <0.03 0-0.06 code = 0593848639) LYMPH x10^3 (test code 1.92 10*3/uL 1.09-3.23 = 731-0) MONO x10^3 (test code 0.55 10*3/uL 0.36-1.02 = 742-7) EOS x10^3 (test code = 0.27 10*3/uL 0.06-0.53 711-2) BASO x10^3 (test code <0.03 0.01-0.09 = 704-7) Lab Interpretation Abnormal (test code = 94785-4) [facility]inteLactic Acid Whole [id number] 06:49:00 Test Item Value Reference Range Interpretation Comments LACTIC ACID (test code = 1.60 mmol/L 7309619120) [facility] PointeFERRITIN [id number] 06:45:00 Test Item Value Reference Range Interpretation Comments FERRITIN (test code = 20.4 ng/mL 18-464 8313352607) DIANE (test code = DIANE) Biotin has been reported to cause a negative bias, interpret results relative to patient's use of biotin. Lab Interpretation (test Normal code = 95735-7) [facility] PointeTHYROID STIMULATING [id number] 06:41:00 Test Item Value Reference Range Interpretation Comments TSH (test code = See_Comment [Automated message] 9307344987) The system [facility] generated this result transmitted ref erence range: 0.45 - 4 .70 mIU/L. The refe rence range was not u sed to interpret this result as normal/abnor mal. Lab Interpretation (test Normal code = 88758-4) [facility] PointeProtein Total [id number] 06:22:00 Test Item Value Reference Range Interpretation Comments T PROTEIN (test code = 4782510769) 7.0 g/dL 6.3-8.2 Lab Interpretation (test code = Normal 15381-1) [facility] PointeGlucose, [id number] 06:21:00 Test Item Value Reference Range Interpretation Comments GLUCOSE (test code = 3920500608) 220 mg/dL 70-110 H Lab Interpretation (test code = Abnormal 22558-0) [facility]inteURIC [id number] 06:21:00 Test Item Value Reference Range Interpretation Comments URIC ACID (test code = 3274392037) 7.5 mg/dL 3.6-8 Lab Interpretation (test code = Normal 25826-6) [facility] PointeAMYLASE2020-09-15 06:21:00 Test Item Value Reference Range Interpretation Comments SERGIO (test code = 7044921416) 110 U/L 35-110 Lab Interpretation (test code = Normal 72210-0) [facility]inteCOVID-19 (ID NOW RAPID TESTING)2020-02-04 02:30:00 Test Item Value Reference Range Interpretation Comments SARS-CoV-2 Rapid ID NOW Not Detected Not Detected (test code = 96091-9) DIANE (test code = DIANE) ID NOW COVID-19 Assay is an isothermal nucleic acid amplification test intended for the qualitative detection of nucleic acid from SARS-CoV-2 viral RNA in nasopharyngeal ([employer]PERVISOR [employer]ISING) specimens. It is used under Emergency Use [...] indicated. Lab Interpretation Normal (test code = 98293-3) [facility]inteCT ANGIOGRAM ABDOMEN/[id number] 00:41:00 Impression: 1. Atherosclerotic disease, with no aneurysm or dissection of the abdominalaorta. No hemodynamically significant stenoses of the major arterialbranches.2. 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 Cholecystectomy.4. A right adrenal low-attenuation lesion cannot be fully characterized,but may reflect a hyperdense cyst.5. Prostatic enlargement. RL: 460 End of Report Ordering Physician: FOLUSHO F IBIKUNLE Clinical history: Follow-up known abdominal aortic aneurysm [...] hyperdense cyst.5. Prostatic enlargement.RL: 460End of Report UnThe [facility] CampusCT ANGIOGRAM [id number] 23:55:31Impression: 1. No prior studies for comparison.2. [...] separate report for CT of the abdomen. [facility], Radiant ResultsInft User - 02/03/2020 [...] CTA of the abdomen.RL: 460End of Report UnThe [facility] CampusUrinalysis2020-09-14 23:09:00 Test Item Value Reference Range Interpretation Comments APPEARANCE (test code = Clear Clear 5712700123) COLOR (test code = Yellow Yellow 9918736418) PH (test code = 4.8-8.0 8674105895) SP GRAVITY (test code = 1.003-1.030 0612675449) GLU U QUAL (test code = 150 mg/dL Normal A 0094429338) BLOOD (test code = 1+ Negative A 1266074022) KETONES (test code = Negative Negative 6639589221) PROTEIN (test code = 100 mg/dL Negative A 2887-8) UROBILIN (test code = Normal Normal 2572600290) BILIRUBIN (test code = Negative Negative 5327700064) NITRITE (test code = Negative Negative 3155533124) LEUK PETER (test code = Negative Negative 6618780839) RBC/HPF (test code = See_Comment [Autom ated message] 4277915073) The system [facility] generated this result transmit ludmila reference range : 0 - 3 HPF. The refe rence range was not u sed to interpret th is result as normal/abnormal . WBC/HPF (test code = See_Comment [Autom ated message] 0372459319) The system [facility] generated this result transmit ludmila reference range : 0 - 5 HPF. The refe rence range was not u sed to interpret th is result as normal/abnormal . BACTERIA (test code = Negative Negative 1743754956) MUCOUS (test code = Slight Negative LPF A 8419879700) Lab Interpretation (test Abnormal code = 38965-2) [facility] PointeHepatic Function Panel (ALB, T.PRO, BILI T, BU/BC, ALT, AST, ALK PHOS)2020-02-03 23:04:00 Test Item Value Reference Range Interpretation Comments TOTAL BILI (test code = 3412567987) 0.4 mg/dL 0.1-1.1 BILI UNCON (test code = 7125166698) 0.5 mg/dL 0.1-1.1 BILI CONJ (test code = 7439495593) 0.0 mg/dL 0-0.3 T PROTEIN (test code = 2915820518) 7.4 g/dL 6.3-8.2 ALBUMIN (test code = 3637199607) 3.9 g/dL 3.5-5 ALK PHOS (test code = 3758423029) 127 U/L 34-122 H ALTv (test code = 1742-6) 15 U/L 5-50 AST(SGOT) (test code = 9147901350) 23 U/L 13-40 Lab Interpretation (test code = Abnormal 04821-6) [facility] PointeTroponin [id number] 23:00:00 Test Item Value Reference Range Interpretation Comments TROPONIN I (test 0.034 ng/mL See_Comment [Automated code = 5622118746) message] The system which generated this result [...] ? Lab Interpretation Normal (test code = 05273-8) [facility]inteN-TERMINAL [id number] 22:57:00 Test Item Value Reference Range Interpretation Comments NT-proBNP (test code 2300 pg/mL See_Comment H [Autom ated = 2230721921) message] The system which generated this result transmitted reference range : <=125. The reference range was not used to interpret this result as normal/abnormal . DIANE (test code = DIANE) Biotin has been reported to cause a negative bias, interpret results relative to patient's use of biotin. Lab Interpretation Abnormal (test code = 34574-7) [facility] PointeaPTT2020-09-14 22:53:00 Test Item Value Reference Range Interpretation Comments APTT Patient (test See_Comment [Automat ed code = 3173-2) message] The system which generated this result transmitted reference range : 23 - 38 Seconds . The reference range was not used to interpr et this result as normal/abnormal . DIANE (test code = DIANE) The [facility] patient population mean normal value for aPTT is 30 seconds. Lab Interpretation Normal (test code = 80125-3) [facility] PointeProthrombin Time (PT) / [id number] 22:51:00 Test Item Value Reference Range Interpretation [...] tions. Lab Interpretation (test Abnormal code = 61720-8) [facility] PointeBasi Metabolic Panel (NA, K, CL, CO2, GLUCOSE, BUN, CREATININE, CA)2020-02-03 22:48:00 Test Item Value Reference Range Interpretation Comments NA (test code = 139 mmol/L 135-145 4923671771) K (test code = 3.8 mmol/L 3.5-5 4911880573) CL (test code = 105 mmol/L 98-108 7858529507) CO2 TOTAL (test code = 23 mmol/L 23-31 8243764550) AGAP (test code = 2-16 5011183959) BUN (test code = 13 mg/dL 7-23 2295537888) GLUCOSE (test code = 223 mg/dL 70-110 H 9501905198) CREATININE (test code = 0.95 mg/dL 0.6-1.25 6997808551) CALCIUM (test code = 9.1 mg/dL 8.6-10.6 8406784850) eGFR Calculation mL/min/1.73m2 (Non-) (test code = 2982762108) eGFR Calculation mL/min/1.73m2 () (test code = 8654215096) DIANE (test code = DIANE) Association of [...] tests). Lab Interpretation Abnormal (test code = 61429-2) [facility] PointeLipase [id number] 22:48:00 Test Item Value Reference Range Interpretation Comments LIPASE (test code = 2088071543) 180 U/L 0-220 Lab Interpretation (test code = Normal 51879-3) [facility]inteCB with [id number] 22:37:00 Test Item Value Reference Range Interpretation Comments WBC (test code = See_Comment [Automated 8890-2) message] The sy stem which generated this [...] RDW-SD (test code = 43.7 fL 38.5-51.6 23898-1) RDW-CV (test code = 13.7 % 12.1-15.4 788-0) PLT (test code = See_Comment [Automated 777-3) message] The sy stem which generated this result transmitted reference range : 150 - 328 10*3/ ?L. The reference r batsheva was not used to interpret this result as normal/abnormal . MPV (test code = 9.7 fL 9.8-13 L 39905-5) NRBC/100 WBC (test See_Comment [Automat ed code = 4752587244) message] The system which generated this result transmitted reference range : 0.0 - 10.0 /100 WBCs. The refer ence range was not u sed to interpret th is result as normal/abnormal . NRBC x10^3 (test code <0.01 See_Comment [Auto mated = 9942929065) message] The s ystem which generated this result transmitted reference range : 10*3/?L. The reference range was not used to interpret this result as normal/abnormal . GRAN MAT (NEUT) % 55.9 % (test code = 770-8) IMM GRAN % (test code 0.40 % = 0841123945) LYMPH % (test code = 27.9 % 736-9) MONO % (test code = 11.4 % 5905-5) EOS % (test code = 4.0 % 713-8) BASO % (test code = 0.4 % 706-2) GRAN MAT x10^3(ANC) 3.86 10*3/uL 1.99-6.95 (test code = 3195655403) IMM GRAN x10^3 (test 0.03 10*3/uL 0-0.06 code = 4268804187) LYMPH x10^3 (test code 1.93 10*3/uL 1.09-3.23 = 731-0) MONO x10^3 (test code 0.79 10*3/uL 0.36-1.02 = 742-7) EOS x10^3 (test code = 0.28 10*3/uL 0.06-0.53 711-2) BASO x10^3 (test code 0.03 10*3/uL 0.01-0.09 = 704-7) Lab Interpretation Abnormal (test code = 47749-6) [facility] GLUCOSE (AUTOMATED)2019-11-21 16:59:00 Test Item Value Reference Range Interpretation Comments POCT GLU (test code = 4254747555) 88 mg/dL 70-110 Lab Interpretation (test code = Normal 71977-3) [facility] GLUCOSE (AUTOMATED)2019-11-21 16:38:00 Test Item Value Reference Range Interpretation Comments POCT GLU (test code = 2051873796) 58 mg/dL 70-110 L Lab Interpretation (test code = Abnormal 31205-1) [facility] GLUCOSE (AUTOMATED)2019-11-21 16:10:00 Test Item Value Reference Range Interpretation Comments POCT GLU (test code = 9943198468) 83 mg/dL 70-110 Lab Interpretation (test code = Normal 15105-6) [facility] PointeVancomycin Trough Level - Draw immediately prior to the 0745 dose, but, no more than 60 minutes [id number] 14:02:00 Test Item Value Reference Range Interpretation Comments VANCO TROUGH (test code 15.5 ug/mL 10-20 = 4702414398) DIANE (test code = DIANE) Toxic Range: ?>20 ug/mL 15-20 ug/mL is recommended for severe infection or when Vancomycin MILLICENT is greater than or equal to 2. Lab Interpretation (test Normal code = 04370-4) [facility] GLUCOSE (AUTOMATED)2019-11-21 12:58:00 Test Item Value Reference Range Interpretation Comments POCT GLU (test code = 8458166126) 223 mg/dL 70-110 H Lab Interpretation (test code = Abnormal 77049-4) [facility] GLUCOSE (AUTOMATED)2019-11-21 00:49:00 Test Item Value Reference Range Interpretation Comments POCT GLU (test code = 8310950138) 178 mg/dL 70-110 H Lab Interpretation (test code = Abnormal 64014-5) [facility] GLUCOSE (AUTOMATED)2019-11-20 21:36:00 Test Item Value Reference Range Interpretation Comments POCT GLU (test code = 1670809622) 132 mg/dL 70-110 H Lab Interpretation (test code = Abnormal 93270-1) [facility] PointeXR CHEST 1 [id number] 21:28:25HISTORY: PICC line placement. TECHNIQUE: Portable AP [...] PICC line appears to be in good position.[facility], Radiant Results Inft User - 11/20/2019 4:29 [...] PICC line appears to be in good position.[facility] GLUCOSE (AUTOMATED)2019-11-20 16:04:00 Test Item Value Reference Range Interpretation Comments POCT GLU (test code = 4841906568) 113 mg/dL 70-110 H Lab Interpretation (test code = Abnormal 05554-1) [facility] GLUCOSE (AUTOMATED)2019-11-20 12:36:00 Test Item Value Reference Range Interpretation Comments POCT GLU (test code = 8107215098) 167 mg/dL 70-110 H Lab Interpretation (test code = Abnormal 11809-4) [facility] METABOLIC PANEL (NA, K, CL, CO2, GLUCOSE, BUN, CREATININE, CA)2019-11-20 09:59:00 Test Item Value Reference Range Interpretation Comments NA (test code = 136 mmol/L 135-145 4297924634) K (test code = 3.5 mmol/L 3.5-5 9255654353) CL (test code = 106 mmol/L 98-108 8197758485) CO2 TOTAL (test code = 25 mmol/L 23-31 8830820790) AGAP (test code = 2-16 0006060680) BUN (test code = 6 mg/dL 7-23 L 3221081804) GLUCOSE (test code = 242 mg/dL 70-110 H 9862999165) CREATININE (test code = 0.51 mg/dL 0.6-1.25 L 2825379371) CALCIUM (test code = 8.2 mg/dL 8.6-10.6 L 9775371739) eGFR Calculation mL/min/1.73m2 (Non-) (test code = 6798678823) eGFR Calculation mL/min/1.73m2 () (test code = 3932349929) DIANE (test code = DIANE) Association of [...] tests). Lab Interpretation Abnormal (test code = 47366-2) [facility] WITH [id number] 09:13:00 Test Item Value Reference Range Interpretation Comments WBC (test code = See_Comment [Automated 6390-2) message] The sy stem which generated this result transmitted reference range : 4.20 - 10.70 10*3/?L. The reference range was not used to interpret this result as normal/abnormal . RBC (test code = See_Comment L [Automated 019-8) message] The sy stem which generated this [...] RDW-SD (test code = 42.2 fL 38.5-51.6 08569-2) RDW-CV (test code = 13.5 % 12.1-15.4 788-0) PLT (test code = See_Comment [Automated 777-3) message] The sy stem which generated this result transmitted reference range : 150 - 328 10*3/ ?L. The reference r batsheva was not used to interpret this result as normal/abnormal . MPV (test code = 10.2 fL 9.8-13 41462-1) NRBC/100 WBC (test See_Comment [Automat ed code = 9399070536) message] The system which generated this result transmitted reference range : 0.0 - 10.0 /100 WBCs. The refer ence range was not u sed to interpret th is result as normal/abnormal . NRBC x10^3 (test code <0.01 See_Comment [Auto mated = 1991620900) message] The s ystem which generated this result transmitted reference range : 10*3/?L. The reference range was not used to interpret this result as normal/abnormal . GRAN MAT (NEUT) % 46.8 % (test code = 770-8) IMM GRAN % (test code 0.40 % = 0570149475) LYMPH % (test code = 35.7 % 736-9) MONO % (test code = 11.0 % 5905-5) EOS % (test code = 5.5 % 713-8) BASO % (test code = 0.6 % 706-2) GRAN MAT x10^3(ANC) 2.21 10*3/uL 1.99-6.95 (test code = 7495339329) IMM GRAN x10^3 (test <0.03 0-0.06 code = 5858682885) LYMPH x10^3 (test code 1.69 10*3/uL 1.09-3.23 = 731-0) MONO x10^3 (test code 0.52 10*3/uL 0.36-1.02 = 742-7) EOS x10^3 (test code = 0.26 10*3/uL 0.06-0.53 711-2) BASO x10^3 (test code 0.03 10*3/uL 0.01-0.09 = 704-7) Lab Interpretation Abnormal (test code = 71240-2) [facility] GLUCOSE (AUTOMATED)2019-11-20 01:39:00 Test Item Value Reference Range Interpretation Comments POCT GLU (test code = 4661551698) 227 mg/dL 70-110 H Lab Interpretation (test code = Abnormal 52723-2) [facility]inteNM BONE WHOLE BODY 3 [id number] 21:43:00 HISTORY: Rule out osteomyelitis in left [...] with plainfilms of the right distal femur. [facility], Radiant Results Inft User - 11/19/2019 4:44 [...] beginning with plainfilms of the right distal femur.[facility] GLUCOSE (AUTOMATED)2019-11-19 16:15:00 Test Item Value Reference Range Interpretation Comments POCT GLU (test code = 3357979529) 101 mg/dL 70-110 Lab Interpretation (test code = Normal 86750-8) [facility]inteVancomycin Trough Level - Draw no more than 60 minutes before the 0745 dose.2019-11-19 14:11:00 Test Item Value Reference Range Interpretation Comments VANCO TROUGH (test code 11.8 ug/mL 10-20 = 8005101704) DIANE (test code = DIANE) Toxic Range: ?>20 ug/mL 15-20 ug/mL is recommended for severe infection or when Vancomycin MILLICENT is greater than or equal to 2. Lab Interpretation (test Normal code = 34403-7) [facility] GLUCOSE (AUTOMATED)2019-11-19 12:52:00 Test Item Value Reference Range Interpretation Comments POCT GLU (test code = 9833229393) 146 mg/dL 70-110 H Lab Interpretation (test code = Abnormal 40757-4) [facility] GLUCOSE (AUTOMATED)2019-11-19 01:17:00 Test Item Value Reference Range Interpretation Comments POCT GLU (test code = 3131662708) 228 mg/dL 70-110 H Lab Interpretation (test code = Abnormal 33940-5) [facility] GLUCOSE (AUTOMATED)2019-11-18 20:46:00 Test Item Value Reference Range Interpretation Comments POCT GLU (test code = 6754162316) 82 mg/dL 70-110 Lab Interpretation (test code = Normal 00607-6) [facility] GLUCOSE (AUTOMATED)2019-11-18 16:27:00 Test Item Value Reference Range Interpretation Comments POCT GLU (test code = 1859471016) 115 mg/dL 70-110 H Lab Interpretation (test code = Abnormal 66654-1) [facility] GLUCOSE (AUTOMATED)2019-11-18 12:29:00 Test Item Value Reference Range Interpretation Comments POCT GLU (test code = 6055753496) 137 mg/dL 70-110 H Lab Interpretation (test code = Abnormal 19622-4) [facility]inteCT ABDOMEN PELVIS W [id number] 02:28:32 1.5 cm metallic structure, possible ingested [...] reviewed this study and agree with the abovereport.[facility] GLUCOSE (AUTOMATED)2019-11-18 01:40:00 Test Item Value Reference Range Interpretation Comments POCT GLU (test code = 5058191731) 102 mg/dL 70-110 Lab Interpretation (test code = Normal 69580-2) [facility] GLUCOSE (AUTOMATED)2019-11-17 21:14:00 Test Item Value Reference Range Interpretation Comments POCT GLU (test code = 1042517782) 171 mg/dL 70-110 H Lab Interpretation (test code = Abnormal 58985-7) [facility] GLUCOSE (AUTOMATED)2019-11-17 16:18:00 Test Item Value Reference Range Interpretation Comments POCT GLU (test code = 1049329451) 131 mg/dL 70-110 H Lab Interpretation (test code = Abnormal 94961-9) [facility] FOOT LEFT W [id number] 15:36:38 Soft tissue swelling and heel pad [...] modality of choice.Preliminary Report Dictated by Resident: Sergio Kenyon, Froy Friedman MD., have reviewed this study and agree with the abovereport.[facility] GLUCOSE (AUTOMATED)2019-11-17 12:32:00 Test Item Value Reference Range Interpretation Comments POCT GLU (test code = 0456539864) 120 mg/dL 70-110 H Lab Interpretation (test code = Abnormal 69668-2) [facility] GLUCOSE (AUTOMATED)2019-11-17 04:19:00 Test Item Value Reference Range Interpretation Comments POCT GLU (test code = 9771694076) 234 mg/dL 70-110 H Lab Interpretation (test code = Abnormal 55632-3) [facility] PointeLactic Acid Whole [id number] 03:08:00 Test Item Value Reference Range Interpretation Comments LACTIC ACID (test code = 2.00 mmol/L 0.3-2.6 6189673824) Lab Interpretation (test code = Normal 54414-2) [facility] PointeGlycosylated Hemoglobin (A1C)2019-11-17 03:01:00 Test Item Value Reference [...] Indicated Lab Interpretation Abnormal (test code = 13216-5) [facility]2019-11-17 01:10:00 Test Item Value Reference Range Interpretation Comments POCT GLU (test code = 6151602588) 334 mg/dL 70-110 H Lab Interpretation (test code = Abnormal 47386-2) [facility] ANKLE 3+ VW [id number] 23:59:27 Heel pad ulceration with no radiograph [...] Intertarsalosteophytosis is seen. [facility], Radiant Results Inft - 11/16/2019 7:00 PM CDTEXAM:XR ANKLE 3+ [...] reviewed this study and agree with the abovereport.[facility]OVID[facility] (ID NOW RAPID TESTING)2019-11-16 23:10:00 Test Item Value Reference Range Interpretation Comments SARS-CoV-2 Rapid ID NOW Not Detected Not Detected (test code = 92342-7) DIANE (test code = DIANE) ID NOW COVID-19 Assay is an isothermal nucleic acid amplification test intended for the qualitative detection of nucleic acid from SARS-CoV-2 viral RNA in nasopharyngeal (SUPERVISOR [employer]ISING) specimens. It is used under Emergency Use [...] indicated. Lab Interpretation Normal (test code = 68906-9) [facility] (NA, K, CL, CO2, GLUCOSE, BUN, CREATININE, CA)2019-11-16 22:50:00 Test Item Value Reference Range Interpretation Comments NA (test code = 137 mmol/L 135-145 8393787000) K (test code = 4.1 mmol/L 3.5-5 6732207613) CL (test code = 101 mmol/L 98-108 8366156869) CO2 TOTAL (test code = 23 mmol/L 23-31 2395417135) AGAP (test code = 2-16 2049360813) BUN (test code = 12 mg/dL 7-23 2732372114) GLUCOSE (test code = 479 mg/dL 70-110 HH 7638345785) CREATININE (test code = 0.78 mg/dL 0.6-1.25 4374345372) CALCIUM (test code = 9.4 mg/dL 8.6-10.6 3041173469) eGFR Calculation mL/min/1.73m2 (Non-) (test code = 6907051864) eGFR Calculation mL/min/1.73m2 () (test code = 7336068707) DIANE (test code = DIANE) Association of [...] tests). Lab Interpretation Abnormal (test code = 77215-6) [facility] WITH [id number] 22:33:00 Test Item Value Reference Range Interpretation Comments WBC (test code = See_Comment [Automated 7990-2) message] The sy stem which generated this [...] RDW-SD (test code = 40.9 fL 38.5-51.6 80899-5) RDW-CV (test code = 13.1 % 12.1-15.4 788-0) PLT (test code = See_Comment [Automated 777-3) message] The sy stem which generated this result transmitted reference range : 150 - 328 10*3/ ?L. The reference r batsheva was not used to interpret this result as normal/abnormal . MPV (test code = 9.9 fL 9.8-13 41984-5) NRBC/100 WBC (test See_Comment [Automat ed code = 0389492424) message] The system which generated this result transmitted reference range : 0.0 - 10.0 /100 WBCs. The refer ence range was not u sed to interpret th is result as normal/abnormal . NRBC x10^3 (test code <0.01 See_Comment [Auto mated = 1037307586) message] The s ystem which generated this result transmitted reference range : 10*3/?L. The reference range was not used to interpret this result as normal/abnormal . GRAN MAT (NEUT) % 62.2 % (test code = 770-8) IMM GRAN % (test code 0.40 % = 7587631531) LYMPH % (test code = 28.0 % 736-9) MONO % (test code = 6.9 % 5905-5) EOS % (test code = 2.2 % 713-8) BASO % (test code = 0.3 % 706-2) GRAN MAT x10^3(ANC) 4.30 10*3/uL 1.99-6.95 (test code = 0151325895) IMM GRAN x10^3 (test 0.03 10*3/uL 0-0.06 code = 8325558812) LYMPH x10^3 (test code 1.94 10*3/uL 1.09-3.23 = 731-0) MONO x10^3 (test code 0.48 10*3/uL 0.36-1.02 = 742-7) EOS x10^3 (test code = 0.15 10*3/uL 0.06-0.53 711-2) BASO x10^3 (test code <0.03 0.01-0.09 = 704-7) Lab Interpretation Abnormal (test code = 96427-5) [facility]inteLactic Acid Whole [id number] 22:19:00 Test Item Value Reference Range Interpretation Comments LACTIC ACID (test code = 3.67 mmol/L 0.3-2.6 1194921500) [facility] ABDOMEN PELVIS W [id number] 03:22:58 1. ?Mild mural thickening and mucosal [...] reviewed this study and agree with the abovereport.[facility]inteCORONAVIRUS COVID-19 [id number] 02:08:00 Test Item Value Reference Range Interpretation Comments SARS-CoV-2 (test code = Not Detected Not Detected 22755-1) DIANE (test code = DIANE) ID NOW COVID-19 Assay is an isothermal nucleic acid amplification test intended for the qualitative detection of nucleic acid from SARS-CoV-2 viral RNA in nasopharyngeal ([employer]) specimens. It is used under Emergency Use [...] indicated. Lab Interpretation Normal (test code = 52856-0) [facility]inteComplete Metabolic [id number] 02:04:00 Test Item Value Reference Range Interpretation Comments NA (test code = 138 mmol/L 135-145 3871986010) K (test code = 3.4 mmol/L 3.5-5 L 0035699793) CL (test code = 104 mmol/L 98-108 1218169353) CO2 TOTAL (test code = 20 mmol/L 23-31 L 5155722634) AGAP (test code = 2-16 0498621291) BUN (test code = 11 mg/dL 7-23 6671164559) GLUCOSE (test code = 282 mg/dL 70-110 H 9638951811) CREATININE (test code = 1.00 mg/dL 0.6-1.25 1343517768) TOTAL BILI (test code = 0.5 mg/dL 0.1-1.2 8921462096) CALCIUM (test code = 9.6 mg/dL 8.6-10.6 4075772247) T PROTEIN (test code = 7.7 g/dL 6.3-8.2 8888443189) ALBUMIN (test code = 4.4 g/dL 3.5-5 2943838728) ALK PHOS (test code = 121 U/L 34-122 4430155223) ALTv (test code = 15 U/L 5-50 1742-6) AST(SGOT) (test code = 22 U/L 13-40 4777240844) eGFR Calculation mL/min/1.73m2 (Non-) (test code = 4177818648) eGFR Calculation mL/min/1.73m2 () (test code = 5719080467) DIANE (test code = DIANE) Association of [...] tests). Lab Interpretation Abnormal (test code = 08526-7) [facility]inteLipase, [id number] 02:04:00 Test Item Value Reference Range Interpretation Comments LIPASE (test code = 9787478794) 157 U/L 0-220 Lab Interpretation (test code = Normal 87899-9) [facility]CB WITH [id number] 01:53:00 Test Item Value Reference Range Interpretation Comments WBC (test code = See_Comment [Automated 1290-2) message] The sy stem which generated this [...] RDW-SD (test code = 38.7 fL 38.5-51.6 54673-3) RDW-CV (test code = 12.4 % 12.1-15.4 788-0) PLT (test code = See_Comment [Automated 777-3) message] The sy stem which generated this result transmitted reference range : 150 - 328 10*3/ ?L. The reference r batsheva was not used to interpret this result as normal/abnormal . MPV (test code = 9.8 fL 9.8-13 22245-6) NRBC/100 WBC (test See_Comment [Automat ed code = 8718252729) message] The system which generated this result transmitted reference range : 0.0 - 10.0 /100 WBCs. The refer ence range was not u sed to interpret th is result as normal/abnormal . NRBC x10^3 (test code <0.01 See_Comment [Auto mated = 1543197675) message] The s ystem which generated this result transmitted reference range : 10*3/?L. The reference range was not used to interpret this result as normal/abnormal . GRAN MAT (NEUT) % 62.2 % (test code = 770-8) IMM GRAN % (test code 0.50 % = 5428151216) LYMPH % (test code = 27.3 % 736-9) MONO % (test code = 7.4 % 5905-5) EOS % (test code = 2.2 % 713-8) BASO % (test code = 0.4 % 706-2) GRAN MAT x10^3(ANC) 5.12 10*3/uL 1.99-6.95 (test code = 3055037124) IMM GRAN x10^3 (test 0.04 10*3/uL 0-0.06 code = 6400973643) LYMPH x10^3 (test code 2.24 10*3/uL 1.09-3.23 = 731-0) MONO x10^3 (test code 0.61 10*3/uL 0.36-1.02 = 742-7) EOS x10^3 (test code = 0.18 10*3/uL 0.06-0.53 711-2) BASO x10^3 (test code 0.03 10*3/uL 0.01-0.09 = 704-7) Lab Interpretation Abnormal (test code = 36844-6) [facility]2019-08-15 19:47:00 Test Item Value Reference Range Interpretation Comments POCT GLU (test code = 7894671978) 294 mg/dL 70-110 H Lab Interpretation (test code = Abnormal 30885-7) [facility] ABDOMEN PELVIS W [id number] 19:14:56CT Abdomen and Pelvis with intravenous contrast. [...] Liver, Gallbladder and Spleen: S/P cholecystectomy.Liver is nvlaqgvxhjrnj26.9 cm and spleen is 10 x 5 [...] and food material. Please seeadditional details above. [facility], Radiant Results Inft User - 08/15/2019 2:15 [...] Gallbladder and Spleen: S/P cholecystectomy. Liver is iqksbdwfywfcr78.9 cm and spleen is 10 x 5 [...] fluid and food material. Please seeadditional details above.[facility] [id number] 18:20:00 Test Item Value Reference Range Interpretation Comments TROPONIN I (test 0.019 ng/mL See_Comment [Automated code = 8949857322) message] The system which generated this result [...] ? Lab Interpretation Normal (test code = 43546-6) [facility] CHEST 2 [id number] 18:10:52HISTORY: Cough and upper abdominal pain. TECHNIQUE: [...] spines.CONCLUSIONS: No signs of acute cardiopulmonary disease. [facility]XR FOOT 3+ VW [id number] 18:09:41HISTORY: Diabetic foot ulcer. FINDINGS: AP, lateral, [...] film evidence ofosteomyelitis in the foot bones. [facility], Radiant Results Inft User - 08/15/2019 1:10 [...] plain film evidence ofosteomyelitis in the foot bones.[facility] PointeBasi Metabolic Panel (NA, K, CL, CO2, GLUCOSE, BUN, CREATININE, CA)2019-08-15 18:09:00 Test Item Value Reference Range Interpretation Comments NA (test code = 137 mmol/L 135-145 3004790507) K (test code = 4.1 mmol/L 3.5-5 8651163352) CL (test code = 101 mmol/L 98-108 2697054262) CO2 TOTAL (test code = 25 mmol/L 23-31 0012972835) AGAP (test code = 2-16 7216161393) BUN (test code = 16 mg/dL 7-23 3600689753) GLUCOSE (test code = 430 mg/dL 70-110 H 7274001033) CREATININE (test code = 0.64 mg/dL 0.6-1.25 9633153111) CALCIUM (test code = 10.0 mg/dL 8.6-10.6 8107043145) eGFR Calculation mL/min/1.73m2 (Non-) (test code = 3566627766) eGFR Calculation mL/min/1.73m2 () (test code = 1060870271) DIANE (test code = DIANE) Association of [...] tests). Lab Interpretation Abnormal (test code = 42631-8) [facility]inteHepatic Function Panel (ALB, T.PRO, BILI T, BU/BC, ALT, AST, ALK PHOS)2019-08-15 18:09:00 Test Item Value Reference Range Interpretation Comments TOTAL BILI (test code = 5825572612) 0.6 mg/dL 0.1-1.1 BILI UNCON (test code = 7877005196) 0.7 mg/dL 0.1-1.1 BILI CONJ (test code = 8911402352) 0.0 mg/dL 0-0.3 T PROTEIN (test code = 5873296660) 7.9 g/dL 6.3-8.2 ALBUMIN (test code = 6159330818) 4.5 g/dL 3.5-5 ALK PHOS (test code = 0824840175) 190 U/L 34-122 H ALTv (test code = 1742-6) 36 U/L 5-50 AST(SGOT) (test code = 6371507747) 25 U/L 13-40 Lab Interpretation (test code = Abnormal 85812-7) [facility] PointeLipase [id number] 18:09:00 Test Item Value Reference Range Interpretation Comments LIPASE (test code = 0873845209) 262 U/L 0-220 H Lab Interpretation (test code = Abnormal 30959-3) [facility] PointeUrinalysis2020-03-26 18:06:00 Test Item Value Reference Range Interpretation Comments APPEARANCE (test code = Clear Clear 2470316920) COLOR (test code = Yellow Yellow 1277598566) PH (test code = 4.8-8.0 9824295552) SP GRAVITY (test code = 1.003-1.030 H 4234950558) GLU U QUAL (test code = 500 mg/dL Normal A 5242871773) BLOOD (test code = Negative Negative 4821320963) KETONES (test code = Negative Negative 4864693428) PROTEIN (test code = Negative Negative 2887-8) UROBILIN (test code = Normal Normal 1735451210) BILIRUBIN (test code = Negative Negative 4469506948) NITRITE (test code = Negative Negative 2415318212) LEUK PETER (test code = Negative Negative 2354478748) RBC/HPF (test code = See_Comment [Autom ated message] 5499994244) The system [employer] generated this result transmit ludmila reference range : 0 - 3 HPF. The refe rence range was not u sed to interpret th is result as normal/abnormal . WBC/HPF (test code = <1 See_Comment [Autom ated message] 5838979804) The system [employer] generated this result transmit ludmila reference range : 0 - 5 HPF. The refe rence range was not u sed to interpret th is result as normal/abnormal . BACTERIA (test code = Negative Negative 9954181875) Lab Interpretation (test Abnormal code = 77431-4) [facility]inteProthrombin Time (PT) / [id number] 18:05:00 Test Item Value Reference Range Interpretation Comments PROTIME PATIENT (test See_Comment [Auto mated message] code = 5964-2) The system [employer] generated this result transmitted ref erence range: 12.0 - 1 4.7 Seconds. The re ference range was not u sed to interpret this result as normal/abnor mal. INR (test code = 6301-6) Nor mal INR <1.1; Warfarin Therap eutic range 2.0 to 3. 0 or 2.5 to 3.5, dep ending upon the indica tions. Lab Interpretation (test Normal code = 74217-6) [facility] WITH [id number] 17:58:00 Test Item Value Reference Range Interpretation Comments WBC (test code = See_Comment [Automated 9990-2) message] The sy stem which generated this [...] RDW-SD (test code = 41.4 fL 38.5-51.6 38005-2) RDW-CV (test code = 13.0 % 12.1-15.4 788-0) PLT (test code = See_Comment [Automated 777-3) message] The sy stem which generated this result transmitted reference range : 150 - 328 10*3/ ?L. The reference r batsheva was not used to interpret this result as normal/abnormal . MPV (test code = 9.5 fL 9.8-13 L 56690-2) NRBC/100 WBC (test See_Comment [Automat ed code = 3871329943) message] The system which generated this result transmitted reference range : 0.0 - 10.0 /100 WBCs. The refer ence range was not u sed to interpret th is result as normal/abnormal . NRBC x10^3 (test code <0.01 See_Comment [Auto mated = 4789110486) message] The s ystem which generated this result transmitted reference range : 10*3/?L. The reference range was not used to interpret this result as normal/abnormal . GRAN MAT (NEUT) % 45.3 % (test code = 770-8) IMM GRAN % (test code 0.40 % = 4699073691) LYMPH % (test code = 41.5 % 736-9) MONO % (test code = 8.2 % 5905-5) EOS % (test code = 4.2 % 713-8) BASO % (test code = 0.4 % 706-2) GRAN MAT x10^3(ANC) 3.10 10*3/uL 1.99-6.95 (test code = 5420519003) IMM GRAN x10^3 (test 0.03 10*3/uL 0-0.06 code = 3062034620) LYMPH x10^3 (test code 2.85 10*3/uL 1.09-3.23 = 731-0) MONO x10^3 (test code 0.56 10*3/uL 0.36-1.02 = 742-7) EOS x10^3 (test code = 0.29 10*3/uL 0.06-0.53 711-2) BASO x10^3 (test code 0.03 10*3/uL 0.01-0.09 = 704-7) Lab Interpretation Abnormal (test code = 62799-2) [facility] GLUCOSE (AUTOMATED)2019-08-09 16:49:00 Test Item Value Reference Range Interpretation Comments POCT GLU (test code = 3491094096) 203 mg/dL 70-110 H Lab Interpretation (test code = Abnormal 47839-0) [facility]inteVITAMIN B12, [id number] 16:00:00 Test Item Value Reference Range Interpretation Comments VIT B12 (test code = 859 pg/mL 240-930 9329538244) DIANE (test code = DIANE) Biotin has been reported to cause a positive bias, interpret results relative to patient's use of biotin. Lab Interpretation (test Normal code = 56217-5) [facility] GLUCOSE (AUTOMATED)2019-08-09 13:39:00 Test Item Value Reference Range Interpretation Comments POCT GLU (test code = 0998797996) 95 mg/dL 70-110 Lab Interpretation (test code = Normal 68895-8) [facility] PointeIRON [id number] 10:56:00 Test Item Value Reference Range Interpretation Comments IRON (test code = 8436494981) 75 ug/dL 50-160 TIBC (test code = 0697470774) 308 ug/dL 250-410 % FE SAT (test code = 7348813527) 24 % 20-50 Lab Interpretation (test code = Normal 72688-8) [facility] METABOLIC PANEL (NA, K, CL, CO2, GLUCOSE, BUN, CREATININE, CA)2019-08-09 10:47:00 Test Item Value Reference Range Interpretation Comments NA (test code = 138 mmol/L 135-145 3477028339) K (test code = 3.6 mmol/L 3.5-5 0756045605) CL (test code = 106 mmol/L 98-108 0806780250) CO2 TOTAL (test code = 26 mmol/L 23-31 4778680506) AGAP (test code = 2-16 0303269455) BUN (test code = 10 mg/dL 7-23 1180344845) GLUCOSE (test code = 62 mg/dL 70-110 L 2187586476) CREATININE (test code = 0.45 mg/dL 0.6-1.25 L 2139702262) CALCIUM (test code = 8.6 mg/dL 8.6-10.6 8809458145) eGFR Calculation mL/min/1.73m2 (Non-) (test code = 6508400792) eGFR Calculation mL/min/1.73m2 () (test code = 7072112086) DIANE (test code = DIANE) Association of [...] tests). Lab Interpretation Abnormal (test code = 88293-1) [facility] WITH [id number] 10:20:00 Test Item Value Reference Range Interpretation Comments WBC (test code = See_Comment [Automated 6690-2) message] The sy stem which generated this result transmitted reference range : 4.20 - 10.70 10*3/?L. The reference range was not used to interpret this result as normal/abnormal . RBC (test code = See_Comment L [Automated 909-8) message] The sy stem which generated this [...] RDW-SD (test code = 42.5 fL 38.5-51.6 07485-6) RDW-CV (test code = 13.4 % 12.1-15.4 788-0) PLT (test code = See_Comment H [Automated 777-3) message] The sy stem which generated this result transmitted reference range : 150 - 328 10*3/ ?L. The reference r batsheva was not used to interpret this result as normal/abnormal . MPV (test code = 9.5 fL 9.8-13 L 38456-3) NRBC/100 WBC (test See_Comment [Automat ed code = 6461882447) message] The system which generated this result transmitted reference range : 0.0 - 10.0 /100 WBCs. The refer ence range was not u sed to interpret th is result as normal/abnormal . NRBC x10^3 (test code <0.01 See_Comment [Auto mated = 8726959404) message] The s ystem which generated this result transmitted reference range : 10*3/?L. The reference range was not used to interpret this result as normal/abnormal . GRAN MAT (NEUT) % 54.6 % (test code = 770-8) IMM GRAN % (test code 0.50 % = 5392461300) LYMPH % (test code = 30.3 % 736-9) MONO % (test code = 8.3 % 5905-5) EOS % (test code = 5.8 % 713-8) BASO % (test code = 0.5 % 706-2) GRAN MAT x10^3(ANC) 3.51 10*3/uL 1.99-6.95 (test code = 0779684875) IMM GRAN x10^3 (test 0.03 10*3/uL 0-0.06 code = 7446223837) LYMPH x10^3 (test code 1.94 10*3/uL 1.09-3.23 = 731-0) MONO x10^3 (test code 0.53 10*3/uL 0.36-1.02 = 742-7) EOS x10^3 (test code = 0.37 10*3/uL 0.06-0.53 711-2) BASO x10^3 (test code 0.03 10*3/uL 0.01-0.09 = 704-7) Lab Interpretation Abnormal (test code = 21592-6) [facility]inteFOLATE2020-03-20 05:38:00 Test Item Value Reference Range Interpretation Comments FOLATE SER (test code = 6.8 ng/mL 3-20 Biot in has been 1688496047) reported to cau se a positive bias, interpret resul ts relative to patient's use o f biotin. Lab Interpretation (test Normal code = 79842-2) [facility] GLUCOSE (AUTOMATED)2019-08-09 00:59:00 Test Item Value Reference Range Interpretation Comments POCT GLU (test code = 6953765579) 169 mg/dL 70-110 H Lab Interpretation (test code = Abnormal 89690-8) [facility] PointeFERRITIN [id number] 22:54:00 Test Item Value Reference Range Interpretation Comments FERRITIN (test code = 120.0 ng/mL 18-464 1180010254) DIANE (test code = DIANE) Biotin has been reported to cause a negative bias, interpret results relative to patient's use of biotin. Lab Interpretation (test Normal code = 21705-1) [facility] GLUCOSE (AUTOMATED)2019-08-08 22:32:00 Test Item Value Reference Range Interpretation Comments POCT GLU (test code = 5975652723) 122 mg/dL 70-110 H Lab Interpretation (test code = Abnormal 94808-2) [facility] GLUCOSE (AUTOMATED)2019-08-08 17:10:00 Test Item Value Reference Range Interpretation Comments POCT GLU (test code = 9497303920) 132 mg/dL 70-110 H Lab Interpretation (test code = Abnormal 15762-9) [facility] PointeFL UPPER GI [id number] 16:42:01HISTORY: Upper abdominal pain and weight loss. [...] in the esophagus, otherwise normal upper GI series.[facility], Radiant Results Inft User - 08/08/2019 11:43 [...] in the esophagus, otherwise normal upper GI series.[facility]intePONC GLUCOSE (AUTOMATED)2019-08-08 13:06:00 Test Item Value Reference Range Interpretation Comments POCT GLU (test code = 2634512006) 118 mg/dL 70-110 H Lab Interpretation (test code = Abnormal 35722-2) [facility] PointeBac Metabolic Panel (NA, K, CL, CO2, GLUCOSE, BUN, CREATININE, CA)2019-08-08 11:00:00 Test Item Value Reference Range Interpretation Comments NA (test code = 137 mmol/L 135-145 0944724153) K (test code = 3.7 mmol/L 3.5-5 7508192577) CL (test code = 105 mmol/L 98-108 9637028601) CO2 TOTAL (test code = 25 mmol/L 23-31 5480183215) AGAP (test code = 2-16 3723973349) BUN (test code = 13 mg/dL 7-23 8937695007) GLUCOSE (test code = 123 mg/dL 70-110 H 0556619853) CREATININE (test code = 0.44 mg/dL 0.6-1.25 L 8264769793) CALCIUM (test code = 8.6 mg/dL 8.6-10.6 5823902700) eGFR Calculation mL/min/1.73m2 (Non-) (test code = 9467176982) eGFR Calculation mL/min/1.73m2 () (test code = 9085943771) DIANE (test code = DIANE) Association of [...] tests). Lab Interpretation Abnormal (test code = 97455-6) [facility] WITH [id number] 10:08:00 Test Item Value Reference Range Interpretation Comments WBC (test code = See_Comment [Automated 0927-2) message] The sy stem which generated this result transmitted reference range : 4.20 - 10.70 10*3/?L. The reference range was not used to interpret this result as normal/abnormal . RBC (test code = See_Comment L [Automated 569-8) message] The sy stem which generated this [...] RDW-SD (test code = 43.1 fL 38.5-51.6 73407-8) RDW-CV (test code = 13.2 % 12.1-15.4 788-0) PLT (test code = See_Comment H [Automated 777-3) message] The sy stem which generated this result transmitted reference range : 150 - 328 10*3/ ?L. The reference r batsheva was not used to interpret this result as normal/abnormal . MPV (test code = 9.7 fL 9.8-13 L 37074-2) NRBC/100 WBC (test See_Comment [Automat ed code = 7044935163) message] The system which generated this result transmitted reference range : 0.0 - 10.0 /100 WBCs. The refer ence range was not u sed to interpret th is result as normal/abnormal . NRBC x10^3 (test code <0.01 See_Comment [Auto mated = 1343927288) message] The s ystem which generated this result transmitted reference range : 10*3/?L. The reference range was not used to interpret this result as normal/abnormal . GRAN MAT (NEUT) % 59.0 % (test code = 770-8) IMM GRAN % (test code 0.50 % = 5089134411) LYMPH % (test code = 26.5 % 736-9) MONO % (test code = 6.9 % 5905-5) EOS % (test code = 6.6 % 713-8) BASO % (test code = 0.5 % 706-2) GRAN MAT x10^3(ANC) 3.83 10*3/uL 1.99-6.95 (test code = 0347466226) IMM GRAN x10^3 (test 0.03 10*3/uL 0-0.06 code = 3693234103) LYMPH x10^3 (test code 1.72 10*3/uL 1.09-3.23 = 731-0) MONO x10^3 (test code 0.45 10*3/uL 0.36-1.02 = 742-7) EOS x10^3 (test code = 0.43 10*3/uL 0.06-0.53 711-2) BASO x10^3 (test code 0.03 10*3/uL 0.01-0.09 = 704-7) Lab Interpretation Abnormal (test code = 11652-5) [facility] GLUCOSE (AUTOMATED)2019-08-08 01:43:00 Test Item Value Reference Range Interpretation Comments POCT GLU (test code = 4946904256) 74 mg/dL 70-110 Lab Interpretation (test code = Normal 77295-1) [facility] GLUCOSE (AUTOMATED)2019-08-07 21:25:00 Test Item Value Reference Range Interpretation Comments POCT GLU (test code = 9664289650) 112 mg/dL 70-110 H Lab Interpretation (test code = Abnormal 86208-5) [facility] PointeTroponin [id number] 16:36:00 Test Item Value Reference Range Interpretation Comments TROPONIN I (test 0.014 ng/mL See_Comment [Automated code = 3487865815) message] The system which generated this result [...] ? Lab Interpretation Normal (test code = 67524-1) [facility] GLUCOSE (AUTOMATED)2019-08-07 13:39:00 Test Item Value Reference Range Interpretation Comments POCT GLU (test code = 6050985213) 240 mg/dL 70-110 H Lab Interpretation (test code = Abnormal 65947-7) [facility] GLUCOSE (AUTOMATED)2019-08-07 13:08:00 Test Item Value Reference Range Interpretation Comments POCT GLU (test code = 9861925676) 150 mg/dL 70-110 H Lab Interpretation (test code = Abnormal 17994-8) [facility]rop[facility] [id number] 10:00:00 Test Item Value Reference Range Interpretation Comments TROPONIN I (test 0.014 ng/mL See_Comment [Automated code = 6814638803) message] The system which generated this result [...] ? Lab Interpretation Normal (test code = 74183-1) [facility] [id number] 09:57:00 Test Item Value Reference Range Interpretation Comments NT-proBNP (test code 265 pg/mL See_Comment H [Autom ated = 4690127164) message] The system which generated this result transmitted reference range : <=125. The reference range was not used to interpret this result as normal/abnormal . DIANE (test code = DIANE) Biotin has been reported to cause a negative bias, interpret results relative to patient's use of biotin. Lab Interpretation Abnormal (test code = 99573-1) [facility] Met[facility] (NA, K, CL, CO2, GLUCOSE, BUN, CREATININE, CA)2019-08-07 09:53:00 Test Item Value Reference Range Interpretation Comments NA (test code = 140 mmol/L 135-145 5141027276) K (test code = 3.6 mmol/L 3.5-5 9148847881) CL (test code = 104 mmol/L 98-108 8911927428) CO2 TOTAL (test code = 27 mmol/L 23-31 0663828326) AGAP (test code = 2-16 8038200691) BUN (test code = 16 mg/dL 7-23 7447932139) GLUCOSE (test code = 135 mg/dL 70-110 H 5370664727) CREATININE (test code = 0.51 mg/dL 0.6-1.25 L 6698212508) CALCIUM (test code = 9.2 mg/dL 8.6-10.6 0768706238) eGFR Calculation mL/min/1.73m2 (Non-) (test code = 6922156245) eGFR Calculation mL/min/1.73m2 () (test code = 6268750072) DIANE (test code = DIANE) Association of [...] tests). Lab Interpretation Abnormal (test code = 60956-9) [facility]UM2020-03-18 09:53:00 Test Item Value Reference Range Interpretation Comments MAGNESIUM (test code = 8294152528) 2.1 mg/dL 1.7-2.4 Lab Interpretation (test code = Normal 61047-2) [facility] WITH [id number] 09:25:00 Test Item Value Reference Range Interpretation Comments WBC (test code = See_Comment [Automated 4931-2) message] The sy stem which generated this result transmitted reference range : 4.20 - 10.70 10*3/?L. The reference range was not used to interpret this result as normal/abnormal . RBC (test code = See_Comment L [Automated 193-5) message] The sy stem which generated this [...] RDW-SD (test code = 42.5 fL 38.5-51.6 03836-1) RDW-CV (test code = 13.1 % 12.1-15.4 788-0) PLT (test code = See_Comment H [Automated 777-3) message] The sy stem which generated this result transmitted reference range : 150 - 328 10*3/ ?L. The reference r batsheva was not used to interpret this result as normal/abnormal . MPV (test code = 9.4 fL 9.8-13 L 03457-7) NRBC/100 WBC (test See_Comment [Automat ed code = 6190630878) message] The system which generated this result transmitted reference range : 0.0 - 10.0 /100 WBCs. The refer ence range was not u sed to interpret th is result as normal/abnormal . NRBC x10^3 (test code <0.01 See_Comment [Auto mated = 9307890606) message] The s ystem which generated this result transmitted reference range : 10*3/?L. The reference range was not used to interpret this result as normal/abnormal . GRAN MAT (NEUT) % 49.6 % (test code = 770-8) IMM GRAN % (test code 1.00 % = 8260729189) LYMPH % (test code = 35.6 % 736-9) MONO % (test code = 10.0 % 5905-5) EOS % (test code = 3.5 % 713-8) BASO % (test code = 0.3 % 706-2) GRAN MAT x10^3(ANC) 3.07 10*3/uL 1.99-6.95 (test code = 6652951758) IMM GRAN x10^3 (test 0.06 10*3/uL 0-0.06 code = 7124310868) LYMPH x10^3 (test code 2.21 10*3/uL 1.09-3.23 = 731-0) MONO x10^3 (test code 0.62 10*3/uL 0.36-1.02 = 742-7) EOS x10^3 (test code = 0.22 10*3/uL 0.06-0.53 711-2) BASO x10^3 (test code <0.03 0.01-0.09 = 704-7) Lab Interpretation Abnormal (test code = 70300-5) [facility]inteGLYCOSYLATED HEMOGLOBIN (A1C)2019-08-07 04:47:00 Test Item Value Reference [...] Indicated Lab Interpretation Abnormal (test code = 18700-8) [facility]inteTroponin [id number] 04:11:00 Test Item Value Reference Range Interpretation Comments TROPONIN I (test 0.017 ng/mL See_Comment [Automated code = 4185554343) message] The system which generated this result [...] ? Lab Interpretation Normal (test code = 41510-0) [facility] ABDOMEN [id number] 03:38:19 A 2.7 cm right simple renal [...] The IVC is seen entering the liver. [facility], Radiant Results Inft User - 08/06/2019 10:39 [...] reviewed this study and agree with the abovereport.[facility]SE (AUTOMATED)2019-08-07 01:27:00 Test Item Value Reference Range Interpretation Comments POCT GLU (test code = 2394083832) 293 mg/dL 70-110 H Lab Interpretation (test code = Abnormal 24917-0) [facility] PointeThyroid Stimulating Hormone (TSH)2019-08-06 23:41:00 Test Item Value Reference Range Interpretation Comments TSH (test code = See_Comment [Automated message] 2162343795) The system [employer] generated this result transmitted ref erence range: 0.45 - 4 .70 mIU/L. The refe rence range was not u sed to interpret this result as normal/abnor mal. Lab Interpretation (test Normal code = 30441-2) [facility] PointeMagnesium [id number] 23:22:00 Test Item Value Reference Range Interpretation Comments MAGNESIUM (test code = 7209914384) 2.0 mg/dL 1.7-2.4 Lab Interpretation (test code = Normal 22686-2) [facility]inteLipid Panel (Total Cholesterol, Triglycerides, HDL) - [id number] 23:12:00 Test Item Value Reference Range Interpretation Comments CHOL (test code = 185 mg/dL 120-200 4048651607) HDL (test code = 27 mg/dL >40 L 1075252935) HDLC RATIO (test code = See_Comment H [Au tomated message] 9124337781) The system [employer] generated this result transmit ludmila reference range : <=5.0. The refe rence range was not u sed to interpret th is result as normal/abnormal . TRIG (test code = 280 mg/dL 30-170 H 9856034735) LDL CHOL (test code = 102 mg/dL See_Comment [Auto mated message] 84255-4) The system [employer] generated this result transmit ludmila reference range : <=160. The refe rence range was not u sed to interpret th is result as normal/abnormal . VLDL (test code = 56 mg/dL 5-60 5678691380) Lab Interpretation (test Abnormal code = 22376-1) [id number] 20:39:00 Test Item Value Reference Range Interpretation Comments TROPONIN I (test 0.018 ng/mL See_Comment [Automated code = 9669213480) message] The system which generated this result [...] ? Lab Interpretation Normal (test code = 36757-6) [facility]inteXR CHEST 1 [id number] 20:32:21HISTORY: Chest pain. TECHNIQUE: 2 Portable AP [...] disease.[facility] PointeCOMP. METABOLIC PANEL (92231)2019-08-06 20:29:00 Test Item Value Reference Range Interpretation Comments NA (test code = 139 mmol/L 135-145 8339043483) K (test code = 4.2 mmol/L 3.5-5 7152204486) CL (test code = 103 mmol/L 98-108 9650989472) CO2 TOTAL (test code = 23 mmol/L 23-31 1630244290) AGAP (test code = 2-16 7915001249) BUN (test code = 15 mg/dL 7-23 0517262067) GLUCOSE (test code = 337 mg/dL 70-110 H 7903286750) CREATININE (test code = 0.60 mg/dL 0.6-1.25 5361448396) TOTAL BILI (test code = 0.4 mg/dL 0.1-1.4 5680905484) CALCIUM (test code = 9.8 mg/dL 8.6-10.6 0067415517) T PROTEIN (test code = 8.2 g/dL 6.3-8.2 9554594841) ALBUMIN (test code = 4.6 g/dL 3.5-5 2034489374) ALK PHOS (test code = 154 U/L 34-122 H 9378909432) ALTv (test code = 22 U/L 5-50 1742-6) AST(SGOT) (test code = 25 U/L 13-40 4127813452) eGFR Calculation mL/min/1.73m2 (Non-) (test code = 3391074613) eGFR Calculation mL/min/1.73m2 () (test code = 9453950958) DIANE (test code = DIANE) Association of [...] tests). Lab Interpretation Abnormal (test code = 58304-5) [facility]inteLIPASE, [id number] 20:28:00 Test Item Value Reference Range Interpretation Comments LIPASE (test code = 9980468829) 464 U/L 0-220 H Lab Interpretation (test code = Abnormal 00328-0) [facility] WITH [id number] 20:27:00 Test Item Value Reference Range Interpretation [...] RDW-SD (test code = 43.4 fL 38.5-51.6 04874-5) RDW-CV (test code = 13.3 % 12.1-15.4 788-0) PLT (test code = See_Comment H [Automated 777-3) message] The sy stem which generated this result transmitted reference range : 150 - 328 10*3/ ?L. The reference r batsheva was not used to interpret this result as normal/abnormal . MPV (test code = 10.3 fL 9.8-13 08850-9) NRBC/100 WBC (test See_Comment [Automat ed code = 9415219909) message] The system which generated this result transmitted reference range : 0.0 - 10.0 /100 WBCs. The refer ence range was not u sed to interpret th is result as normal/abnormal . NRBC x10^3 (test code <0.01 See_Comment [Auto mated = 4976761082) message] The s ystem which generated this result transmitted reference range : 10*3/?L. The reference range was not used to interpret this result as normal/abnormal . GRAN MAT (NEUT) % 62.5 % (test code = 770-8) IMM GRAN % (test code 1.50 % = 3245911030) LYMPH % (test code = 27.0 % 736-9) MONO % (test code = 6.5 % 5905-5) EOS % (test code = 2.1 % 713-8) BASO % (test code = 0.4 % 706-2) GRAN MAT x10^3(ANC) 6.35 10*3/uL 1.99-6.95 (test code = 1524943210) IMM GRAN x10^3 (test 0.15 10*3/uL 0-0.06 H code = 6626725212) LYMPH x10^3 (test code 2.74 10*3/uL 1.09-3.23 = 731-0) MONO x10^3 (test code 0.66 10*3/uL 0.36-1.02 = 742-7) EOS x10^3 (test code = 0.21 10*3/uL 0.06-0.53 711-2) BASO x10^3 (test code 0.04 10*3/uL 0.01-0.09 = 704-7) Lab Interpretation Abnormal (test code = 39471-1) [facility] PointePROTHROMBIN TIME / [id number] 20:23:00 Test Item Value Reference Range Interpretation [...] tions. Lab Interpretation (test Normal code = 34028-1) [facility] PointeaPTT2020-03-17 20:22:00 Test Item Value Reference Range Interpretation Comments APTT Patient (test See_Comment [Automat ed code = 3173-2) message] The system which generated this result transmitted reference range : 23 - 38 Seconds . The reference range was not used to interpr et this result as normal/abnormal . DIANE (test code = DIANE) The [facility] patient population mean normal value for aPTT is 30 seconds. Lab Interpretation Normal (test code = 03259-0) [facility]intePOCT GLUCOSE (AUTOMATED)2019-07-18 23:35:00 Test Item Value Reference Range Interpretation Comments POCT GLU (test code = 2412953557) 241 mg/dL 70-110 H Lab Interpretation (test code = Abnormal 23111-1) [facility] PointeSEDIMENTATION [id number] 22:16:00 Test Item Value Reference Range Interpretation Comments ESR (test code = See_Comment H [Automated message] 6578557320) The system [employer] generated this result transmitted ref erence range: 0 - 10 m m/HR. The reference r batsheva was not used to interpret this result as normal/abnor mal. Lab Interpretation (test Abnormal code = 01283-1) [facility] PointeaPTT (for use with Heparin Practice Guideline). Note: Draw and Send all Lab STAT.2019-07-18 21:09:00 Test Item Value Reference Range Interpretation Comments APTT Patient (test code See_Comment H [Au tomated message] = 3173-2) The system [employer] generated this result transmitted ref erence range: 26 - 36 Seconds. The reference range was not used to int erpret this result as normal/abnormal . Lab Interpretation (test Abnormal code = 03290-1) [facility] PointeC-REACTIVE [id number] 20:31:00 Test Item Value Reference Range Interpretation Comments CRP (test code = 5766844394) 0.4 mg/dL <0.8 Lab Interpretation (test code = Normal 24743-9) [facility] PointeTROPONIN [id number] 17:57:00 Test Item Value Reference Range Interpretation Comments TROPONIN I (test 0.031 ng/mL See_Comment [Automated code = 8527999223) message] The system which generated this result [...] ? Lab Interpretation Normal (test code = 28265-5) [facility] PointePONC GLUCOSE (AUTOMATED)2019-07-18 15:46:00 Test Item Value Reference Range Interpretation Comments POCT GLU (test code = 5873666209) 170 mg/dL 70-110 H Lab Interpretation (test code = Abnormal 90969-0) [facility] ABDOMEN PELVIS W [id number] 15:45:[address] findings of acute intra-abdominal [...] the right gluteal soft tissues. (3: 1:30). [facility], Radiant Results Inft User - [...] reviewed this study and agree with the abovereport.[facility]inteXR FOOT 3+ VW [id number] 15:18:27FINDINGS/IMPRESSION: No ?acute fracture or dislocation. Soft tissue swelling at the plantar aspect of the healed with lucency mayrepresent an ulcer. No underlying bony erosions or periosteal reaction arepresent to suggest osteomyelitis. Vascular calcifications are noted EXAM: XR FOOT 3+ VW LEFT HISTORY: 59 years-old Male heel soft tissue swelling, evaluate to screenfor calcaneal osteomyelitisCOMPARISON: None. [facility], Radiant Results Inft User - 07/18/2019 9:19 AM CSTEXAM: XR FOOT 3+ VW LEFTHISTORY: 59 years-old Male heel soft tissue swelling, evaluate to screenfor calcaneal osteomyelitis COMPARISON: None.IMPRESSIONFINDINGS/IMPRESSION:No acute fracture or dislocation. Soft tissue swelling at the plantar aspect of the healed with lucency mayrepresent an ulcer. No underlying bony erosions or periosteal reaction arepresent to suggest osteomyelitis.Vascular calcifications are notedUnThe [facility] CampusTROPONIN [id number] 12:08:00 Test Item Value Reference Range Interpretation Comments TROPONIN I (test 0.013 ng/mL See_Comment [Automated code = 0133872797) message] The system which generated this result [...] ? Lab Interpretation Normal (test code = 28814-1) [facility]inteLIPASE2020-02-27 11:37:00 Test Item Value Reference Range Interpretation Comments LIPASE (test code = 9889981915) 112 U/L 0-220 Lab Interpretation (test code = Normal 79737-6) [facility]intePOCT GLUCOSE (AUTOMATED)2019-07-18 10:21:00 Test Item Value Reference Range Interpretation Comments POCT GLU (test code = 1368822570) 253 mg/dL 70-110 H Lab Interpretation (test code = Abnormal 89397-1) [facility]inteXR CHEST 1 [id number] 05:40:50 No acute cardiopulmonary abnormality. Preliminary Report Dictated by Resident: Matthias Kaur I, Pacheco Bowens MD., have reviewed this study and agree [...] reviewed this study andagree with the abovereport. [facility] PointeTRANMED HEALTH MEDICAL CENTERNIN [id number] 04:39:00 Test Item Value Reference Range Interpretation Comments TROPONIN I (test 0.015 ng/mL See_Comment [Automated code = 3775143556) message] The system which generated this result [...] ? Lab Interpretation Normal (test code = 36952-0) [facility] PointeN-TERMINAL [id number] 04:36:00 Test Item Value Reference Range Interpretation Comments NT-proBNP (test code 226 pg/mL See_Comment H [Autom ated = 3755415319) message] The system which generated this result transmitted reference range : <=125. The reference range was not used to interpret this result as normal/abnormal . DIANE (test code = DIANE) Biotin has been reported to cause a negative bias, interpret results relative to patient's use of biotin. Lab Interpretation Abnormal (test code = 82768-3) [facility] PointeCOMP. METABOLIC PANEL (70136)2019-07-18 04:27:00 Test Item Value Reference Range Interpretation Comments NA (test code = 138 mmol/L 135-145 9089324436) K (test code = 4.4 mmol/L 3.5-5 0986048130) CL (test code = 102 mmol/L 98-108 8904566728) CO2 TOTAL (test code = 22 mmol/L 23-31 L 6658324390) AGAP (test code = 2-16 0793127919) BUN (test code = 16 mg/dL 7-23 3732305769) GLUCOSE (test code = 373 mg/dL 70-110 H 1035371164) CREATININE (test code = 0.71 mg/dL 0.6-1.25 5592074358) TOTAL BILI (test code = 0.3 mg/dL 0.1-1.3 5925964134) CALCIUM (test code = 10.0 mg/dL 8.6-10.6 6285765064) T PROTEIN (test code = 7.6 g/dL 6.3-8.2 2836484083) ALBUMIN (test code = 4.7 g/dL 3.5-5 9353725477) ALK PHOS (test code = 183 U/L 34-122 H 9231739645) ALTv (test code = 48 U/L 5-50 1742-6) AST(SGOT) (test code = 24 U/L 13-40 3739427891) eGFR Calculation mL/min/1.73m2 (Non-) (test code = 9420853815) eGFR Calculation mL/min/1.73m2 () (test code = 2932126587) DIANE (test code = DIANE) Association of [...] tests). Lab Interpretation Abnormal (test code = 44989-1) [facility] PointePROTHROMBIN TIME / [id number] 04:24:00 Test Item Value Reference Range Interpretation Comments PROTIME PATIENT (test See_Comment [Auto mated message] code = 5964-2) The system [employer] generated this result transmitted ref erence range: 12.0 - 1 4.7 Seconds. The re ference range was not u sed to interpret this result as normal/abnor mal. INR (test code = 6301-6) Nor mal INR <1.1; Warfarin Therap eutic range 2.0 to 3. 0 or 2.5 to 3.5, dep ending upon the indica tions. Lab Interpretation (test Normal code = 93131-5) [facility] WITH [id number] 04:14:00 Test Item Value Reference Range Interpretation [...] RDW-SD (test code = 44.4 fL 38.5-51.6 17699-1) RDW-CV (test code = 13.8 % 12.1-15.4 788-0) PLT (test code = See_Comment [Automated 777-3) message] The sy stem which generated this result transmitted reference range : 150 - 328 10*3/ ?L. The reference r batsheva was not used to interpret this result as normal/abnormal . MPV (test code = 9.5 fL 9.8-13 L 20173-9) NRBC/100 WBC (test See_Comment [Automat ed code = 1523573403) message] The system which generated this result transmitted reference range : 0.0 - 10.0 /100 WBCs. The refer ence range was not u sed to interpret th is result as normal/abnormal . NRBC x10^3 (test code <0.01 See_Comment [Auto mated = 0670141381) message] The s ystem which generated this result transmitted reference range : 10*3/?L. The reference range was not used to interpret this result as normal/abnormal . GRAN MAT (NEUT) % 66.6 % (test code = 770-8) IMM GRAN % (test code 0.80 % = 2088067415) LYMPH % (test code = 21.8 % 736-9) MONO % (test code = 8.3 % 5905-5) EOS % (test code = 2.2 % 713-8) BASO % (test code = 0.3 % 706-2) GRAN MAT x10^3(ANC) 6.44 10*3/uL 1.99-6.95 (test code = 8209474205) IMM GRAN x10^3 (test 0.08 10*3/uL 0-0.06 H code = 3620896144) LYMPH x10^3 (test code 2.11 10*3/uL 1.09-3.23 = 731-0) MONO x10^3 (test code 0.80 10*3/uL 0.36-1.02 = 742-7) EOS x10^3 (test code = 0.21 10*3/uL 0.06-0.53 711-2) BASO x10^3 (test code 0.03 10*3/uL 0.01-0.09 = 704-7) Lab Interpretation Abnormal (test code = 79871-9) [facility] GLUCOSE (AUTOMATED)2019-06-26 23:26:00 Test Item Value Reference Range Interpretation Comments POCT GLU (test code = 5488379305) 204 mg/dL 70-110 H Lab Interpretation (test code = Abnormal 18485-9) [facility] GLUCOSE (AUTOMATED)2019-06-26 17:53:00 Test Item Value Reference Range Interpretation Comments POCT GLU (test code = 2127149481) 115 mg/dL 70-110 H Lab Interpretation (test code = Abnormal 07156-1) [facility] Metabolic Panel (NA, K, CL, CO2, GLUCOSE, BUN, CREATININE, CA)2019-06-26 11:15:00 Test Item Value Reference Range Interpretation Comments NA (test code = 138 mmol/L 135-145 3616047505) K (test code = 3.7 mmol/L 3.5-5 5084610598) CL (test code = 109 mmol/L 98-108 H 7949734016) CO2 TOTAL (test code = 20 mmol/L 23-31 L 7699708070) AGAP (test code = 2-16 0692077446) BUN (test code = 10 mg/dL 7-23 3198439470) GLUCOSE (test code = 121 mg/dL 70-110 H 8571460140) CREATININE (test code = 0.40 mg/dL 0.6-1.25 L 5037575388) CALCIUM (test code = 8.0 mg/dL 8.6-10.6 L 5715478228) eGFR Calculation mL/min/1.73m2 (Non-) (test code = 7614897679) eGFR Calculation mL/min/1.73m2 () (test code = 8924274626) DIANE (test code = DIANE) Association of [...] tests). Lab Interpretation Abnormal (test code = 96753-1) [facility] PointeMagnesium [id number] 11:15:00 Test Item Value Reference Range Interpretation Comments MAGNESIUM (test code = 6397731956) 1.6 mg/dL 1.7-2.4 L Lab Interpretation (test code = Abnormal 81412-9) [facility] PointeCB WITH [id number] 10:49:00 Test Item Value Reference Range Interpretation [...] RDW-SD (test code = 41.4 fL 38.5-51.6 55391-7) RDW-CV (test code = 13.2 % 12.1-15.4 788-0) PLT (test code = See_Comment [Automated 777-3) message] The sy stem which generated this result transmitted reference range : 150 - 328 10*3/ ?L. The reference r batsheva was not used to interpret this result as normal/abnormal . MPV (test code = 10.2 fL 9.8-13 37730-8) NRBC/100 WBC (test See_Comment [Automat ed code = 5930409934) message] The system which generated this result transmitted reference range : 0.0 - 10.0 /100 WBCs. The refer ence range was not u sed to interpret th is result as normal/abnormal . NRBC x10^3 (test code <0.01 See_Comment [Auto mated = 2434707628) message] The s [employer] which generated this result transmitted reference range : 10*3/?L. The reference range was not used to interpret this result as normal/abnormal . GRAN MAT (NEUT) % 77.6 % (test code = 770-8) IMM GRAN % (test code 0.40 % = 5678227074) LYMPH % (test code = 13.8 % 736-9) MONO % (test code = 6.6 % 5905-5) EOS % (test code = 1.5 % 713-8) BASO % (test code = 0.1 % 706-2) GRAN MAT x10^3(ANC) 5.29 10*3/uL 1.99-6.95 (test code = 6499992637) IMM GRAN x10^3 (test 0.03 10*3/uL 0-0.06 code = 0446929105) LYMPH x10^3 (test code 0.94 10*3/uL 1.09-3.23 L = 731-0) MONO x10^3 (test code 0.45 10*3/uL 0.36-1.02 = 742-7) EOS x10^3 (test code = 0.10 10*3/uL 0.06-0.53 711-2) BASO x10^3 (test code <0.03 0.01-0.09 = 704-7) Lab Interpretation Abnormal (test code = 80181-7) [facility] - Initial blood draw to be done 2 hours after procedure.2019-06-26 06:11:00 Test Item Value Reference Range Interpretation Comments APTT Patient (test code = See_Comment [ Automated message] 3173-2) The system [employer] generated this result transmitted ref erence range: 26 - 36 Seconds. The re ference range was not u sed to interpret this result as normal/abnor mal. Lab Interpretation (test Normal code = 32596-1) [facility] - Initial blood draw to be done 2 hours after procedure.2019-06-26 03:12:00 Test Item Value Reference Range Interpretation Comments APTT Patient (test code See_Comment H [Au tomated message] = 3173-2) The system [employer] generated this result transmitted ref erence range: 26 - 36 Seconds. The reference range was not used to int erpret this result as normal/abnormal . Lab Interpretation (test Abnormal code = 78525-7) [facility] GLUCOSE (AUTOMATED)2019-06-26 02:47:00 Test Item Value Reference Range Interpretation Comments POCT GLU (test code = 5959815672) 165 mg/dL 70-110 H Lab Interpretation (test code = Abnormal 48119-9) [facility] (for use with Heparin Practice Guideline). Note: Draw and Send all Lab STAT.2019-06-26 00:55:00 Test Item Value Reference Range Interpretation Comments APTT Patient (test code >150 See_Comment HH [Au tomated message] = 3173-2) The system [employer] generated this result transmitted ref erence range: 26 - 36 Seconds. The reference range was not used to int erpret this result as normal/abnormal . Lab Interpretation (test Abnormal code = 75131-9) [facility] GLUCOSE (AUTOMATED)2019-06-25 21:53:00 Test Item Value Reference Range Interpretation Comments POCT GLU (test code = 2819312931) 178 mg/dL 70-110 H Lab Interpretation (test code = Abnormal 56282-9) [facility] ACT LOW [id number] 21:14:00 Test Item Value Reference Range Interpretation Comments ACTLR (test code = See_Comment H [Automat ed message] 0968665472) The system [employer] generated this result transmitted ref erence range: 89 - 169 Seconds. The reference range was not used to int erpret this result as normal/abnormal . Lab Interpretation (test Abnormal code = 13510-9) [facility] ACT LOW [id number] 19:29:00 Test Item Value Reference Range Interpretation Comments ACTLR (test code = See_Comment H [Automat ed message] 1641079155) The system [employer] generated this result transmitted ref erence range: 89 - 169 Seconds. The reference range was not used to int erpret this result as normal/abnormal . Lab Interpretation (test Abnormal code = 71113-7) [facility]25 16:14:00 Test Item Value Reference Range Interpretation Comments POCT GLU (test code = 3538948318) 195 mg/dL 70-110 H Lab Interpretation (test code = Abnormal 90741-6) [facility]CLC ONLY - URINE DRUG (IMMUNOASSAY) - COMPREHENSIVE DRUG [id number] 10:50:00 Test Item Value Reference Range Interpretation Comments AMPHET (test code = Negative Negative 4320999057) JUNG U (test code = Negative Negative 9487176248) BENZO U (test code = Negative Negative 1957259949) Cocaine Metabolite (test Negative Negative code = 1280743453) METHADONE (test code = Negative Negative 2511981055) OPIATES (test code = Presumptive Positive Negative A 5630777621) PCP (test code = Negative Negative 9638983388) THC (test code = Negative Negative 9737738830) DIANE (test code = DIANE) Urine Drug [...] testing). Lab Interpretation (test Abnormal code = 82915-8) [facility] (NA, K, CL, CO2, GLUCOSE, BUN, CREATININE, CA)2019-06-25 10:18:00 Test Item Value Reference Range Interpretation Comments NA (test code = 138 mmol/L 135-145 9660908615) K (test code = 3.2 mmol/L 3.5-5 L 0536170454) CL (test code = 108 mmol/L 98-108 1064142648) CO2 TOTAL (test code = 23 mmol/L 23-31 4556536460) AGAP (test code = 2-16 8402333879) BUN (test code = 17 mg/dL 7-23 0118502101) GLUCOSE (test code = 177 mg/dL 70-110 H 6616574226) CREATININE (test code = 0.61 mg/dL 0.6-1.25 7034003390) CALCIUM (test code = 8.4 mg/dL 8.6-10.6 L 9583028618) eGFR Calculation mL/min/1.73m2 (Non-) (test code = 1298706961) eGFR Calculation mL/min/1.73m2 () (test code = 2119804598) DIANE (test code = DIANE) Association of [...] tests). Lab Interpretation Abnormal (test code = 69282-5) [facility]inteMagnesium [id number] 10:18:00 Test Item Value Reference Range Interpretation Comments MAGNESIUM (test code = 6492857967) 1.9 mg/dL 1.7-2.4 Lab Interpretation (test code = Normal 28041-0) [facility]inteTroponin [id number] 10:16:00 Test Item Value Reference Range Interpretation Comments TROPONIN I (test 0.018 ng/mL See_Comment [Automated code = 1802073550) message] The system which generated this result [...] ? Lab Interpretation Normal (test code = 01537-7) [facility]inteaPTT (for use with Heparin Practice Guideline). Note: Draw and Send all Lab STAT.2019-06-25 09:59:00 Test Item Value Reference Range Interpretation Comments APTT Patient (test code See_Comment HH [Au tomated message] = 3173-2) The system [employer] generated this result transmitted ref erence range: 26 - 36 Seconds. The reference range was not used to int erpret this result as normal/abnormal . Lab Interpretation (test Abnormal code = 75378-7) [facility]inteUREA NITROGEN, URINE [id number] 09:46:00 Test Item Value Reference Range Interpretation Comments UREA N UR (test code = 5084654573) 511 mg/dL [facility]inteCREATININE, URINE [id number] 09:46:00 Test Item Value Reference Range Interpretation Comments CREAT U (test code = 7833265136) 114.4 mg/dL [facility]inteSODIUM, URINE [id number] 09:46:00 Test Item Value Reference Range Interpretation Comments NA URINE (test code = 0414338270) 109 mmol/L [facility] WITH [id number] 09:33:00 Test Item Value Reference Range Interpretation [...] RDW-SD (test code = 41.6 fL 38.5-51.6 63813-8) RDW-CV (test code = 12.9 % 12.1-15.4 788-0) PLT (test code = See_Comment [Automated 777-3) message] The sy stem which generated this result transmitted reference range : 150 - 328 10*3/ ?L. The reference r batsheva was not used to interpret this result as normal/abnormal . MPV (test code = 10.1 fL 9.8-13 16035-7) NRBC/100 WBC (test See_Comment [Automat ed code = 4161904652) message] The system which generated this result transmitted reference range : 0.0 - 10.0 /100 WBCs. The refer ence range was not u sed to interpret th is result as normal/abnormal . NRBC x10^3 (test code <0.01 See_Comment [Auto mated = 0707037536) message] The s [employer] which generated this result transmitted reference range : 10*3/?L. The reference range was not used to interpret this result as normal/abnormal . GRAN MAT (NEUT) % 43.0 % (test code = 770-8) IMM GRAN % (test code 0.50 % = 8447158307) LYMPH % (test code = 43.4 % 736-9) MONO % (test code = 9.7 % 5905-5) EOS % (test code = 3.2 % 713-8) BASO % (test code = 0.2 % 706-2) GRAN MAT x10^3(ANC) 2.38 10*3/uL 1.99-6.95 (test code = 7474235738) IMM GRAN x10^3 (test 0.03 10*3/uL 0-0.06 code = 9755028030) LYMPH x10^3 (test code 2.41 10*3/uL 1.09-3.23 = 731-0) MONO x10^3 (test code 0.54 10*3/uL 0.36-1.02 = 742-7) EOS x10^3 (test code = 0.18 10*3/uL 0.06-0.53 711-2) BASO x10^3 (test code <0.03 0.01-0.09 = 704-7) Lab Interpretation Abnormal (test code = 33713-5) [facility]inteJorge [id number] 03:14:00 Test Item Value Reference Range Interpretation Comments TROPONIN I (test 0.009 ng/mL See_Comment [Automated code = 3942471483) message] The system which generated this result [...] ? Lab Interpretation Normal (test code = 79731-3) [facility]inte[facility]PTT (for use with Heparin Practice Guideline). Note: Draw and Send all Lab STAT.2019-06-25 03:06:00 Test Item Value Reference Range Interpretation Comments APTT Patient (test code = See_Comment [ Automated message] 3173-2) The system [employer] generated this result transmitted ref erence range: 26 - 36 Seconds. The re ference range was not u sed to interpret this result as normal/abnor mal. Lab Interpretation (test Normal code = 13056-2) [facility]inteGLYCOSYLATED HEMOGLOBIN (A1C)2019-06-25 03:04:00 Test Item Value Reference [...] Indicated Lab Interpretation Abnormal (test code = 97375-5) [facility]intePhosphorus [id number] 02:59:00 Test Item Value Reference Range Interpretation Comments PHOSPHORUS (test code = 5071323603) 3.2 mg/dL 2.5-5 Lab Interpretation (test code = Normal 62942-6) [facility] (AUTOMATED)2019-06-25 02:27:00 Test Item Value Reference Range Interpretation Comments POCT GLU (test code = 6446007681) 256 mg/dL 70-110 H Lab Interpretation (test code = Abnormal 40892-2) [facility] PointeUrinalysis2020-02-03 23:02:00 Test Item Value Reference Range Interpretation Comments APPEARANCE (test code = Other Clear A 4339994152) COLOR (test code = Yellow Yellow 8955015629) PH (test code = 4.8-8.0 2973329346) SP GRAVITY (test code = <=1.005 1.003-1.030 4899053165) GLU U QUAL (test code = >1000 mg/dL Negative A 9940957253) BLOOD (test code = Negative Negative 7860213392) KETONES (test code = Trace Negative A 0129976588) PROTEIN (test code = Negative Negative 2887-8) UROBILIN (test code = 0.2 mg/dL See_Comment [Auto mated 5302788802) message] The sy stem which generated this result transmitted reference range : 0-1.0 mg/dL. Th e reference range was not used to interpret this result as normal/abnormal . BILIRUBIN (test code = Negative Negative 7169827858) NITRITE (test code = Negative Negative 6249277156) LEUK PETER (test code = Negative Negative 4570152591) RBC/HPF (test code = See_Comment [Autom ated 0494667660) message] The sy stem which generated this result transmitted reference range : 0 - 3 HPF. The reference range was not used to interpret this result as normal/abnormal . WBC/HPF (test code = See_Comment [Autom ated 5099731068) message] The sy stem which generated this result transmitted reference range : 0 - 5 HPF. The reference range was not used to interpret this result as normal/abnormal . BACTERIA (test code = Few Negative A 0600245437) MUCOUS (test code = Moderate Negative LPF A 6891348336) AMORPHOUS (test code = Few Rare HPF A 0913375007) SQ EPITH (test code = HPF 0078205583) WBC CLUMPS (test code = See_Comment [Au tomated 4769767168) message] The sy stem which generated this result transmitted reference range : <=1 HPF. The reference range was not used to interpret this result as normal/abnormal . Lab Interpretation Abnormal (test code = 28493-9) [facility] PointeTHYROID STIMULATING [id number] 22:45:00 Test Item Value Reference Range Interpretation Comments TSH (test code = See_Comment [Automated message] 7469871779) The system whic h generated this result transmitted ref erence range: 0.45 - 4 .70 mIU/L. The refe rence range was not u sed to interpret this result as normal/abnor mal. Lab Interpretation (test Normal code = 05964-6) [facility]inteTroponin [id number] 22:27:00 Test Item Value Reference Range Interpretation Comments TROPONIN I (test <0.012 See_Comment [Automated code = 7033019316) message] The system which generated this result [...] ? Lab Interpretation Normal (test code = 04493-2) [facility]inteN-TERMINAL [id number] 22:24:00 Test Item Value Reference Range Interpretation Comments NT-proBNP (test code 302 pg/mL See_Comment H [Autom ated = 1356782768) message] The system which generated this result transmitted reference range : <=125. The reference range was not used to interpret this result as normal/abnormal . DIANE (test code = DIANE) Biotin has been reported to cause a negative bias, interpret results relative to patient's use of biotin. Lab Interpretation Abnormal (test code = 24164-8) [facility]inteHepatic Function Panel (ALB, T.PRO, BILI T, BU/BC, ALT, AST, ALK PHOS)2019-06-24 22:23:00 Test Item Value Reference Range Interpretation Comments TOTAL BILI (test code = 7275675770) 0.7 mg/dL 0.1-1.1 BILI UNCON (test code = 0430033305) 0.6 mg/dL 0.1-1.1 BILI CONJ (test code = 8049163164) 0.0 mg/dL 0-0.3 T PROTEIN (test code = 4782137184) 7.6 g/dL 6.3-8.2 ALBUMIN (test code = 7845491621) 4.9 g/dL 3.5-5 ALK PHOS (test code = 0555934448) 121 U/L 34-122 ALTv (test code = 1742-6) 25 U/L 5-50 AST(SGOT) (test code = 8450099290) 28 U/L 13-40 Lab Interpretation (test code = Normal 12462-6) [facility] PointeMAGNESIUM2020-02-03 22:17:00 Test Item Value Reference Range Interpretation Comments MAGNESIUM (test code = 5677089733) 1.9 mg/dL 1.7-2.4 Lab Interpretation (test code = Normal 02912-0) [facility] Metabolic Panel (NA, K, CL, CO2, GLUCOSE, BUN, CREATININE, CA)2019-06-24 22:16:00 Test Item Value Reference Range Interpretation Comments NA (test code = 139 mmol/L 135-145 9332780574) K (test code = 4.3 mmol/L 3.5-5 6779076560) CL (test code = 101 mmol/L 98-108 9033361016) CO2 TOTAL (test code = 21 mmol/L 23-31 L 9034886762) AGAP (test code = 2-16 H 5629727444) BUN (test code = 18 mg/dL 7-23 6598448732) GLUCOSE (test code = 422 mg/dL 70-110 H 8694192691) CREATININE (test code = 1.62 mg/dL 0.6-1.25 H 5973853978) CALCIUM (test code = 10.1 mg/dL 8.6-10.6 9928636815) eGFR Calculation mL/min/1.73m2 (Non-) (test code = 2589017483) eGFR Calculation mL/min/1.73m2 () (test code = 6194987181) DIANE (test code = DIANE) Association of [...] tests). Lab Interpretation Abnormal (test code = 20287-5) [facility]inteProthrombin Time (PT) / [id number] 21:52:00 Test Item Value Reference Range Interpretation [...] tions. Lab Interpretation (test Normal code = 21984-9) [facility] WITH [id number] 21:47:00 Test Item Value Reference Range Interpretation Comments WBC (test code = See_Comment [Automated 2190-2) message] The sy stem which generated this result transmitted reference range : 4.20 - 10.70 10*3/?L. The reference range was not used to interpret this result as normal/abnormal . RBC (test code = See_Comment [Automated 309-8) message] The sy stem which generated this [...] (test code = 38.1 fL 38.5-51.6 L 85503-7) RDW-CV (test code = 12.5 % 12.1-15.4 788-0) PLT (test code = See_Comment [Automated 787-3) message] The sy stem which generated this result transmitted reference range : 150 - 328 10*3/ ?L. The reference r batsheva was not used to interpret this result as normal/abnormal . MPV (test code = 10.6 fL 9.8-13 17466-2) NRBC/100 WBC (test See_Comment [Automat ed code = 9795061963) message] The system which generated this result transmitted reference range : 0.0 - 10.0 /100 WBCs. The refer ence range was not u sed to interpret th is result as normal/abnormal . NRBC x10^3 (test code <0.01 See_Comment [Auto mated = 3848255798) message] The s ystem which generated this result transmitted reference range : 10*3/?L. The reference range was not used to interpret this result as normal/abnormal . GRAN MAT (NEUT) % 62.1 % (test code = 770-8) IMM GRAN % (test code 0.40 % = 0873461590) LYMPH % (test code = 29.3 % 736-9) MONO % (test code = 6.9 % 5905-5) EOS % (test code = 0.9 % 713-8) BASO % (test code = 0.4 % 706-2) GRAN MAT x10^3(ANC) 4.84 10*3/uL 1.99-6.95 (test code = 1484271604) IMM GRAN x10^3 (test 0.03 10*3/uL 0-0.06 code = 4809550675) LYMPH x10^3 (test code 2.28 10*3/uL 1.09-3.23 = 731-0) MONO x10^3 (test code 0.54 10*3/uL 0.36-1.02 = 742-7) EOS x10^3 (test code = 0.07 10*3/uL 0.06-0.53 711-2) BASO x10^3 (test code 0.03 10*3/uL 0.01-0.09 = 704-7) Lab Interpretation Abnormal (test code = 34244-5) [facility] 1 [id number] 21:34:11CHEST PORTABLE ONE VIEW HISTORY:Chest pain TECHNIQUE: [...] or pneumothorax is seen.CONCLUSIONS: No acute cardiopulmonary disease.General acute hospital SCROTUM AND [id number] 02:23:24 Bilateral epididymal head cysts. Heterogeneous epididymal [...] reviewed this study and agree withthe above report.[facility] (NA, K, CL, CO2, GLUCOSE, BUN, CREATININE, CA)2019-02-06 00:13:00 Test Item Value Reference Range Interpretation Comments NA (test code = 140 mmol/L 135-145 4840031121) K (test code = 4.3 mmol/L 3.5-5 7514261250) CL (test code = 103 mmol/L 98-108 8569461657) CO2 TOTAL (test code = 22 mmol/L 23-31 L 1878820935) AGAP (test code = 2-16 3486270481) BUN (test code = 20 mg/dL 7-23 6332012169) GLUCOSE (test code = 429 mg/dL 70-110 H 6226741913) CREATININE (test code = 0.74 mg/dL 0.6-1.25 4864186239) CALCIUM (test code = 10.1 mg/dL 8.6-10.6 7252405087) eGFR Calculation mL/min/1.73m2 (Non-) (test code = 7766148158) eGFR Calculation mL/min/1.73m2 () (test code = 6413794821) DIANE (test code = DIANE) Association of [...] tests). Lab Interpretation Abnormal (test code = 30574-8) [facility]INALYSIS2019-09-17 23:50:00 Test Item Value Reference Range Interpretation Comments APPEARANCE (test code = Clear Clear 8454228546) COLOR (test code = Yellow Yellow 0501133072) PH (test code = 4.8-8.0 6019674701) SP GRAVITY (test code = <=1.005 1.003-1.030 0256771587) GLU U QUAL (test code = >1000 mg/dL Negative A 6964328092) BLOOD (test code = Negative Negative 3743146262) KETONES (test code = Negative Negative 8305767393) PROTEIN (test code = Negative Negative 2887-8) UROBILIN (test code = 0.2 mg/dL See_Comment [Auto mated 3470603056) message] The sy stem which generated this result transmitted reference range : 0-1.0 mg/dL. Th e reference range was not used to interpret this result as normal/abnormal . BILIRUBIN (test code = Negative Negative 4976273167) NITRITE (test code = Negative Negative 9970155594) LEUK PETER (test code = Negative Negative 3042284242) RBC/HPF (test code = See_Comment [Autom ated 3822137454) message] The sy stem which generated this result transmitted reference range : 0 - 3 HPF. The reference range was not used to interpret this result as normal/abnormal . WBC/HPF (test code = See_Comment [Autom ated 6703304436) message] The sy stem which generated this result transmitted reference range : 0 - 5 HPF. The reference range was not used to interpret this result as normal/abnormal . BACTERIA (test code = Negative Negative 9502411981) Lab Interpretation Abnormal (test code = 92700-0) [facility] WITH [id number] 23:35:00 Test Item Value Reference Range Interpretation [...] RDW-SD (test code = 41.7 fL 38.5-51.6 37931-8) RDW-CV (test code = 13.1 % 12.1-15.4 788-0) PLT (test code = See_Comment [Automated 777-3) message] The sy stem which generated this result transmitted reference range : 150 - 328 10*3/ ?L. The reference r batsheva was not used to interpret this result as normal/abnormal . MPV (test code = 10.0 fL 9.8-13 65522-9) NRBC/100 WBC (test See_Comment [Automat ed code = 8968983545) message] The system which generated this result transmitted reference range : 0.0 - 10.0 /100 WBCs. The refer ence range was not u sed to interpret th is result as normal/abnormal . NRBC x10^3 (test code <0.01 See_Comment [Auto mated = 1225991886) message] The s ystem which generated this result transmitted reference range : 10*3/?L. The reference range was not used to interpret this result as normal/abnormal . GRAN MAT (NEUT) % 62.6 % (test code = 770-8) IMM GRAN % (test code 0.60 % = 6451950253) LYMPH % (test code = 24.3 % 736-9) MONO % (test code = 8.1 % 5905-5) EOS % (test code = 3.9 % 713-8) BASO % (test code = 0.5 % 706-2) GRAN MAT x10^3(ANC) 3.96 10*3/uL 1.99-6.95 (test code = 8805032608) IMM GRAN x10^3 (test 0.04 10*3/uL 0-0.06 code = 5519811847) LYMPH x10^3 (test code 1.54 10*3/uL 1.09-3.23 = 731-0) MONO x10^3 (test code 0.51 10*3/uL 0.36-1.02 = 742-7) EOS x10^3 (test code = 0.25 10*3/uL 0.06-0.53 711-2) BASO x10^3 (test code 0.03 10*3/uL 0.01-0.09 = 704-7) Lab Interpretation Abnormal (test code = 16258-5) [facility] GLUCOSE (AUTOMATED)2019-01-29 16:48:00 Test Item Value Reference Range Interpretation Comments POCT GLU (test code = 275 mg/dL 70-110 H 8678688024) DIANE (test code = DIANE) Notified Provider Lab Interpretation (test Abnormal code = 59849-8) [facility] GL[facility]AUTOMATED)2019-01-29 14:48:00 Test Item Value Reference Range Interpretation Comments POCT GLU (test code = 2113590889) 256 mg/dL 70-110 H Lab Interpretation (test code = Abnormal 08658-6) [facility] METABOLIC PANEL (NA, K, CL, CO2, GLUCOSE, BUN, CREATININE, CA)2019-01-29 09:54:00 Test Item Value Reference Range Interpretation Comments NA (test code = 137 mmol/L 135-145 1450384835) K (test code = 3.6 mmol/L 3.5-5 9075716886) CL (test code = 107 mmol/L 98-108 4066101674) CO2 TOTAL (test code = 24 mmol/L 23-31 6643113678) AGAP (test code = 2-16 3929240370) BUN (test code = 8 mg/dL 7-23 5103846948) GLUCOSE (test code = 190 mg/dL 70-110 H 6186502740) CREATININE (test code = 0.54 mg/dL 0.6-1.25 L 4802945590) CALCIUM (test code = 8.4 mg/dL 8.6-10.6 L 2481946192) eGFR Calculation mL/min/1.73m2 (Non-) (test code = 1561025711) eGFR Calculation mL/min/1.73m2 () (test code = 1914993829) DIANE (test code = DIANE) Association of [...] tests). Lab Interpretation Abnormal (test code = 66425-1) [facility]2019-09-10 09:54:00 Test Item Value Reference Range Interpretation Comments MAGNESIUM (test code = 1063328660) 1.6 mg/dL 1.7-2.4 L Lab Interpretation (test code = Abnormal 65545-5) [facility] GLUCOSE (AUTOMATED)2019-01-29 03:07:00 Test Item Value Reference Range Interpretation Comments POCT GLU (test code = 3210837129) 233 mg/dL 70-110 H Lab Interpretation (test code = Abnormal 71778-0) [facility] GLUCOSE (AUTOMATED)2019-01-29 01:37:00 Test Item Value Reference Range Interpretation Comments POCT GLU (test code = 182 mg/dL 70-110 H 7850748332) DIANE (test code = DIANE) Notified Provider Lab Interpretation (test Abnormal code = 67113-0) [facility] GLUCOSE (AUTOMATED)2019-01-28 23:15:00 Test Item Value Reference Range Interpretation Comments POCT GLU (test code = 163 mg/dL 70-110 H 5534931377) DIANE (test code = DIANE) Notified Provider Lab Interpretation (test Abnormal code = 65325-6) [facility] WITH [id number] 21:17:00 Test Item Value Reference Range Interpretation Comments WBC (test code = See_Comment [Automated 6690-2) message] The sy stem which generated this result transmitted reference range : 4.20 - 10.70 10*3/?L. The reference range was not used to interpret this result as normal/abnormal . RBC (test code = See_Comment L [Automated 679-8) message] The sy stem which generated this [...] RDW-SD (test code = 43.6 fL 38.5-51.6 61031-9) RDW-CV (test code = 13.2 % 12.1-15.4 788-0) PLT (test code = See_Comment [Automated 777-3) message] The sy stem which generated this result transmitted reference range : 150 - 328 10*3/ ?L. The reference r batsheva was not used to interpret this result as normal/abnormal . MPV (test code = 10.3 fL 9.8-13 37786-1) NRBC/100 WBC (test See_Comment [Automat ed code = 1892191711) message] The system which generated this result transmitted reference range : 0.0 - 10.0 /100 WBCs. The refer ence range was not u sed to interpret th is result as normal/abnormal . NRBC x10^3 (test code <0.01 See_Comment [Auto mated = 5227124538) message] The s ystem which generated this result transmitted reference range : 10*3/?L. The reference range was not used to interpret this result as normal/abnormal . GRAN MAT (NEUT) % 48.2 % (test code = 770-8) IMM GRAN % (test code 0.40 % = 9682770476) LYMPH % (test code = 35.9 % 736-9) MONO % (test code = 10.7 % 5905-5) EOS % (test code = 4.4 % 713-8) BASO % (test code = 0.4 % 706-2) GRAN MAT x10^3(ANC) 3.42 10*3/uL 1.99-6.95 (test code = 4262746711) IMM GRAN x10^3 (test 0.03 10*3/uL 0-0.06 code = 9296438532) LYMPH x10^3 (test code 2.55 10*3/uL 1.09-3.23 = 731-0) MONO x10^3 (test code 0.76 10*3/uL 0.36-1.02 = 742-7) EOS x10^3 (test code = 0.31 10*3/uL 0.06-0.53 711-2) BASO x10^3 (test code 0.03 10*3/uL 0.01-0.09 = 704-7) Lab Interpretation Abnormal (test code = 14141-2) [facility] ACT LOW [id number] 18:47:00 Test Item Value Reference Range Interpretation Comments ACTLR (test code = See_Comment H [Automat ed message] 0813272398) The system [employer] generated this result transmitted ref erence range: 89 - 169 Seconds. The reference range was not used to int erpret this result as normal/abnormal . Lab Interpretation (test Abnormal code = 96301-5) [facility] ACT LOW [id number] 17:52:00 Test Item Value Reference Range Interpretation Comments ACTLR (test code = See_Comment H [Automat ed message] 0653945377) The system [employer] generated this result transmitted ref erence range: 89 - 169 Seconds. The reference range was not used to int erpret this result as normal/abnormal . Lab Interpretation (test Abnormal code = 60082-9) [facility] ACT LOW [id number] 17:52:00 Test Item Value Reference Range Interpretation Comments ACTLR (test code = See_Comment H [Automat ed message] [id number]) The system [employer] generated this result transmitted ref erence range: 89 - 169 Seconds. The reference range was not used to int erpret this result as normal/abnormal . Lab Interpretation (test Abnormal code = 91886-9) [facility] GLUCOSE (AUTOMATED)2019-01-28 13:15:00 Test Item Value Reference Range Interpretation Comments POCT GLU (test code = 262 mg/dL 70-110 H 1006213990) DIANE (test code = DIANE) Notified Provider Lab Interpretation (test Abnormal code = 93619-6) [facility] Metabolic Panel (NA, K, CL, CO2, GLUCOSE, BUN, CREATININE, CA)2019-01-28 10:26:00 Test Item Value Reference Range Interpretation Comments NA (test code = 137 mmol/L 135-145 8789222217) K (test code = 4.0 mmol/L 3.5-5 Slight 7046173633) hemolysis CL (test code = 106 mmol/L 98-108 2767777881) CO2 TOTAL (test code 24 mmol/L 23-31 = 3659337721) AGAP (test code = 2-16 7599666430) BUN (test code = 9 mg/dL 7-23 Slight 2090980640) hemolysis GLUCOSE (test code = 268 mg/dL 70-110 H 2903608848) CREATININE (test code 0.55 mg/dL 0.6-1.25 L = 2025452281) CALCIUM (test code = 8.7 mg/dL 8.6-10.6 0335756415) eGFR Calculation mL/min/1.73m2 (Non-) (test code = 9744353539) eGFR Calculation mL/min/1.73m2 () (test code = 5771078270) DIANE (test code = DIANE) Association of [...] tests). Lab Interpretation Abnormal (test code = 26127-7) [facility] [id number] 10:26:00 Test Item Value Reference Range Interpretation Comments MAGNESIUM (test code = 7251516037) 1.7 mg/dL 1.7-2.4 Lab Interpretation (test code = Normal 38905-4) [facility] WITH [id number] 10:09:00 Test Item Value Reference Range Interpretation [...] RDW-SD (test code = 43.8 fL 38.5-51.6 41716-9) RDW-CV (test code = 13.2 % 12.1-15.4 788-0) PLT (test code = See_Comment [Automated 777-3) message] The sy stem which generated this result transmitted reference range : 150 - 328 10*3/ ?L. The reference r batsheva was not used to interpret this result as normal/abnormal . MPV (test code = 10.2 fL 9.8-13 78730-2) NRBC/100 WBC (test See_Comment [Automat ed code = 8000093151) message] The system which generated this result transmitted reference range : 0.0 - 10.0 /100 WBCs. The refer ence range was not u sed to interpret th is result as normal/abnormal . NRBC x10^3 (test code <0.01 See_Comment [Auto mated = 0576525288) message] The s ystem which generated this result transmitted reference range : 10*3/?L. The reference range was not used to interpret this result as normal/abnormal . GRAN MAT (NEUT) % 41.1 % (test code = 770-8) IMM GRAN % (test code 0.70 % = 1221597202) LYMPH % (test code = 43.9 % 736-9) MONO % (test code = 8.8 % 5905-5) EOS % (test code = 5.1 % 713-8) BASO % (test code = 0.4 % 706-2) GRAN MAT x10^3(ANC) 2.34 10*3/uL 1.99-6.95 (test code = 9947105958) IMM GRAN x10^3 (test 0.04 10*3/uL 0-0.06 code = 9154326351) LYMPH x10^3 (test code 2.50 10*3/uL 1.09-3.23 = 731-0) MONO x10^3 (test code 0.50 10*3/uL 0.36-1.02 = 742-7) EOS x10^3 (test code = 0.29 10*3/uL 0.06-0.53 711-2) BASO x10^3 (test code <0.03 0.01-0.09 = 704-7) Lab Interpretation Abnormal (test code = 94579-6) [facility] (for use with Heparin Practice Guideline). Note: Draw and Send all Lab STAT.2019-01-28 05:19:00 Test Item Value Reference Range Interpretation Comments APTT Patient (test code See_Comment H [Au tomated message] = 3173-2) The system [employer] [facility] generated this result transmitted ref erence range: 26 - 36 Seconds. The reference range was not used to int erpret this result as normal/abnormal . Lab Interpretation (test Abnormal code = 26411-7) [facility] GLUCOSE (AUTOMATED)2019-01-28 01:53:00 Test Item Value Reference Range Interpretation Comments POCT GLU (test code = 5289011677) 236 mg/dL 70-110 H Lab Interpretation (test code = Abnormal 15072-8) [facility] GLUCOSE (AUTOMATED)2019-01-27 23:43:00 Test Item Value Reference Range Interpretation Comments POCT GLU (test code = 0160214244) 215 mg/dL 70-110 H Lab Interpretation (test code = Abnormal 17331-4) [facility] GLUCOSE (AUTOMATED)2019-01-27 20:43:00 Test Item Value Reference Range Interpretation Comments POCT GLU (test code = 4547991809) 193 mg/dL 70-110 H Lab Interpretation (test code = Abnormal 76722-4) [facility] (for use with Heparin Practice Guideline). Note: Draw and Send all Lab STAT.2019-01-27 17:52:00 Test Item Value Reference Range Interpretation Comments APTT Patient (test code See_Comment H [Au tomated message] = 3173-2) The system [employer] [facility] generated this result transmitted ref erence range: 26 - 36 Seconds. The reference range was not used to int erpret this result as normal/abnormal . Lab Interpretation (test Abnormal code = 38680-9) [facility] GLUCOSE (AUTOMATED)2019-01-27 17:44:00 Test Item Value Reference Range Interpretation Comments POCT GLU (test code = 261 mg/dL 70-110 H 5776295221) DIANE (test code = DIANE) Notified Provider Lab Interpretation (test Abnormal code = 96161-8) [facility] GLUCOSE (AUTOMATED)2019-01-27 12:58:00 Test Item Value Reference Range Interpretation Comments POCT GLU (test code = 9091885876) 201 mg/dL 70-110 H Lab Interpretation (test code = Abnormal 66015-9) [facility]inte[facility]OP[facility]IN [id number] 06:19:00 Test Item Value Reference Range Interpretation Comments TROPONIN I (test 0.033 ng/mL See_Comment [Automated code = 2418580573) message] The system which generated this result [...] ? Lab Interpretation Normal (test code = 28815-9) [facility] (NA, K, CL, CO2, GLUCOSE, BUN, CREATININE, CA)2019-01-27 06:08:00 Test Item Value Reference Range Interpretation Comments NA (test code = 141 mmol/L 135-145 8046880954) K (test code = 4.1 mmol/L 3.5-5 0302619556) CL (test code = 108 mmol/L 98-108 7758108951) CO2 TOTAL (test code = 26 mmol/L 23-31 0350734795) AGAP (test code = 2-16 3768407099) BUN (test code = 10 mg/dL 7-23 2631524229) GLUCOSE (test code = 127 mg/dL 70-110 H 0362079928) CREATININE (test code = 0.57 mg/dL 0.6-1.25 L 1866646639) CALCIUM (test code = 9.3 mg/dL 8.6-10.6 0102969479) eGFR Calculation mL/min/1.73m2 (Non-) (test code = 7913797066) eGFR Calculation mL/min/1.73m2 () (test code = 0484851958) DIANE (test code = DIANE) Association of [...] tests). Lab Interpretation Abnormal (test code = 28619-7) [facility] [id number] 06:08:00 Test Item Value Reference Range Interpretation Comments MAGNESIUM (test code = 8492967299) 1.9 mg/dL 1.7-2.4 Lab Interpretation (test code = Normal 06279-5) [facility] (for use with Heparin Practice Guideline). Note: Draw and Send all Lab STAT.2019-01-27 05:37:00 Test Item Value Reference Range Interpretation Comments APTT Patient (test code See_Comment H [Au tomated message] = 3173-2) The system [employer] [facility] generated this result transmitted ref erence range: 26 - 36 Seconds. The reference range was not used to int erpret this result as normal/abnormal . Lab Interpretation (test Abnormal code = 03348-2) [facility] WITH [id number] 05:31:00 Test Item Value Reference Range Interpretation Comments WBC (test code = See_Comment [Automated 3390-2) message] The sy stem which generated this [...] RDW-SD (test code = 43.0 fL 38.5-51.6 17037-8) RDW-CV (test code = 13.2 % 12.1-15.4 788-0) PLT (test code = See_Comment [Automated 777-3) message] The sy stem which generated this result transmitted reference range : 150 - 328 10*3/ ?L. The reference r batsheva was not used to interpret this result as normal/abnormal . MPV (test code = 9.9 fL 9.8-13 86448-3) NRBC/100 WBC (test See_Comment [Automat ed code = 2344696086) message] The system which generated this result transmitted reference range : 0.0 - 10.0 /100 WBCs. The refer ence range was not u sed to interpret th is result as normal/abnormal . NRBC x10^3 (test code <0.01 See_Comment [Auto mated = 7993669572) message] The s ystem which generated this result transmitted reference range : 10*3/?L. The reference range was not used to interpret this result as normal/abnormal . GRAN MAT (NEUT) % 55.2 % (test code = 770-8) IMM GRAN % (test code 0.20 % = 1027309366) LYMPH % (test code = 30.5 % 736-9) MONO % (test code = 9.1 % 5905-5) EOS % (test code = 4.5 % 713-8) BASO % (test code = 0.5 % 706-2) GRAN MAT x10^3(ANC) 3.53 10*3/uL 1.99-6.95 (test code = 6045152827) IMM GRAN x10^3 (test <0.03 0-0.06 code = 9587641585) LYMPH x10^3 (test code 1.95 10*3/uL 1.09-3.23 = 731-0) MONO x10^3 (test code 0.58 10*3/uL 0.36-1.02 = 742-7) EOS x10^3 (test code = 0.29 10*3/uL 0.06-0.53 711-2) BASO x10^3 (test code 0.03 10*3/uL 0.01-0.09 = 704-7) Lab Interpretation Abnormal (test code = 18977-5) [facility]2019-01-27 01:27:00 Test Item Value Reference Range Interpretation Comments POCT GLU (test code = 2321360695) 201 mg/dL 70-110 H Lab Interpretation (test code = Abnormal 72211-2) [facility] (for use with Heparin Practice Guideline). Note: Draw and Send all Lab STAT.2019-01-26 22:52:00 Test Item Value Reference Range Interpretation Comments APTT Patient (test code See_Comment H [Au tomated message] = 3173-2) The system [employer] [facility] generated this result transmitted ref erence range: 26 - 36 Seconds. The reference range was not used to int erpret this result as normal/abnormal . Lab Interpretation (test Abnormal code = 24416-0) [facility]inteXR ABDOMEN ACUTE [id number] 22:16:19 No acute cardiopulmonary or intra-abdominal abnormality. [...] reviewed this study and agree with the abovereport.[facility]inte[facility]ON[facility] GLUCOSE (AUTOMATED)2019-01-26 21:38:00 Test Item Value Reference Range Interpretation Comments POCT GLU (test code = 217 mg/dL 70-110 H 2031833714) DIANE (test code = DIANE) Notified Provider Lab Interpretation (test Abnormal code = 00792-5) [facility] WITH [id number] 19:27:00 Test Item Value Reference Range Interpretation Comments WBC (test code = See_Comment [Automated 7790-2) message] The sy stem which generated this result transmitted reference range : 4.20 - 10.70 10*3/?L. The reference range was not used to interpret this result as normal/abnormal . RBC (test code = See_Comment L [Automated 743-8) message] The sy stem which generated this [...] RDW-SD (test code = 42.5 fL 38.5-51.6 99475-2) RDW-CV (test code = 13.2 % 12.1-15.4 788-0) PLT (test code = See_Comment [Automated 777-3) message] The sy stem which generated this result transmitted reference range : 150 - 328 10*3/ ?L. The reference r batsheva was not used to interpret this result as normal/abnormal . MPV (test code = 10.4 fL 9.8-13 86317-7) NRBC/100 WBC (test See_Comment [Automat ed code = 7144476661) message] The system which generated this result transmitted reference range : 0.0 - 10.0 /100 WBCs. The refer ence range was not u sed to interpret th is result as normal/abnormal . NRBC x10^3 (test code <0.01 See_Comment [Auto mated = 1955301565) message] The s ystem which generated this result transmitted reference range : 10*3/?L. The reference range was not used to interpret this result as normal/abnormal . GRAN MAT (NEUT) % 57.7 % (test code = 770-8) IMM GRAN % (test code 0.20 % = 3944846068) LYMPH % (test code = 29.2 % 736-9) MONO % (test code = 7.8 % 5905-5) EOS % (test code = 4.6 % 713-8) BASO % (test code = 0.5 % 706-2) GRAN MAT x10^3(ANC) 3.62 10*3/uL 1.99-6.95 (test code = 0956918805) IMM GRAN x10^3 (test <0.03 0-0.06 code = 8274742197) LYMPH x10^3 (test code 1.83 10*3/uL 1.09-3.23 = 731-0) MONO x10^3 (test code 0.49 10*3/uL 0.36-1.02 = 742-7) EOS x10^3 (test code = 0.29 10*3/uL 0.06-0.53 711-2) BASO x10^3 (test code 0.03 10*3/uL 0.01-0.09 = 704-7) Lab Interpretation Abnormal (test code = 51250-8) [facility] GLUCOSE (AUTOMATED)2019-01-26 16:32:00 Test Item Value Reference Range Interpretation Comments POCT GLU (test code = 243 mg/dL 70-110 H 1332569046) DIANE (test code = DIANE) Notified Provider Lab Interpretation (test Abnormal code = 82751-7) [facility] GLUCOSE (AUTOMATED)2019-01-26 13:44:00 Test Item Value Reference Range Interpretation Comments POCT GLU (test code = 7100730047) 270 mg/dL 70-110 H Lab Interpretation (test code = Abnormal 52683-6) [facility] Metabolic Panel (NA, K, CL, CO2, GLUCOSE, BUN, CREATININE, CA)2019-01-26 12:15:00 Test Item Value Reference Range Interpretation Comments NA (test code = 138 mmol/L 135-145 7352871150) K (test code = 4.4 mmol/L 3.5-5 2355028642) CL (test code = 105 mmol/L 98-108 5463644298) CO2 TOTAL (test code = 24 mmol/L 23-31 7684286935) AGAP (test code = 2-16 1161356527) BUN (test code = 12 mg/dL 7-23 1509291447) GLUCOSE (test code = 232 mg/dL 70-110 H 3998735108) CREATININE (test code = 0.60 mg/dL 0.6-1.25 5307147512) CALCIUM (test code = 8.9 mg/dL 8.6-10.6 8449571036) eGFR Calculation mL/min/1.73m2 (Non-) (test code = 9649289929) eGFR Calculation mL/min/1.73m2 () (test code = 6500354813) DIANE (test code = DIANE) Association of [...] tests). Lab Interpretation Abnormal (test code = 91446-3) [facility] [id number] 12:15:00 Test Item Value Reference Range Interpretation Comments MAGNESIUM (test code = 7404452545) 1.9 mg/dL 1.7-2.4 Lab Interpretation (test code = Normal 16942-8) [facility] (for use with Heparin Practice Guideline). Note: Draw and Send all Lab STAT.2019-01-26 12:03:00 Test Item Value Reference Range Interpretation Comments APTT Patient (test code See_Comment H [Au tomated message] = 3173-2) The system Need Fixed h generated this result transmitted ref erence range: 26 - 36 Seconds. The reference range was not used to int erpret this result as normal/abnormal . Lab Interpretation (test Abnormal code = 27958-2) [facility] WITH [id number] 11:49:00 Test Item Value Reference Range Interpretation [...] RDW-SD (test code = 42.8 fL 38.5-51.6 87780-9) RDW-CV (test code = 13.2 % 12.1-15.4 788-0) PLT (test code = See_Comment [Automated 777-3) message] The sy stem which generated this result transmitted reference range : 150 - 328 10*3/ ?L. The reference r batsheva was not used to interpret this result as normal/abnormal . MPV (test code = 10.0 fL 9.8-13 70473-7) NRBC/100 WBC (test See_Comment [Automat ed code = 6430040705) message] The system which generated this result transmitted reference range : 0.0 - 10.0 /100 WBCs. The refer ence range was not u sed to interpret th is result as normal/abnormal . NRBC x10^3 (test code <0.01 See_Comment [Auto mated = 3244506972) message] The s ystem which generated this result transmitted reference range : 10*3/?L. The reference range was not used to interpret this result as normal/abnormal . GRAN MAT (NEUT) % 58.2 % (test code = 770-8) IMM GRAN % (test code 0.30 % = 3273639065) LYMPH % (test code = 28.4 % 736-9) MONO % (test code = 8.0 % 5905-5) EOS % (test code = 4.8 % 713-8) BASO % (test code = 0.3 % 706-2) GRAN MAT x10^3(ANC) 3.39 10*3/uL 1.99-6.95 (test code = 0712122609) IMM GRAN x10^3 (test <0.03 0-0.06 code = 1039554877) LYMPH x10^3 (test code 1.66 10*3/uL 1.09-3.23 = 731-0) MONO x10^3 (test code 0.47 10*3/uL 0.36-1.02 = 742-7) EOS x10^3 (test code = 0.28 10*3/uL 0.06-0.53 711-2) BASO x10^3 (test code <0.03 0.01-0.09 = 704-7) Lab Interpretation Abnormal (test code = 96490-3) [facility] GLUCOSE (AUTOMATED)2019-01-26 01:54:00 Test Item Value Reference Range Interpretation Comments POCT GLU (test code = 0707305940) 213 mg/dL 70-110 H Lab Interpretation (test code = Abnormal 66032-8) [facility] (for use with Heparin Practice Guideline). Note: Draw and Send all Lab STAT.2019-01-25 23:30:00 Test Item Value Reference Range Interpretation Comments APTT Patient (test code See_Comment H [Au tomated message] = 3173-2) The system [employer] generated this result transmitted ref erence range: 26 - 36 Seconds. The reference range was not used to int erpret this result as normal/abnormal . Lab Interpretation (test Abnormal code = 20309-5) [facility] GLUCOSE (AUTOMATED)2019-01-25 21:55:00 Test Item Value Reference Range Interpretation Comments POCT GLU (test code = 104 mg/dL 70-110 7281262312) DIANE (test code = DIANE) Notified Provider Lab Interpretation (test Normal code = 30602-7) [facility] GLUCOSE (AUTOMATED)2019-01-25 17:19:00 Test Item Value Reference Range Interpretation Comments POCT GLU (test code = 150 mg/dL 70-110 H 6651882828) DIANE (test code = DIANE) Notified Provider Lab Interpretation (test Abnormal code = 53179-6) [facility]2019-01-25 12:45:00 Test Item Value Reference Range Interpretation Comments POCT GLU (test code = 195 mg/dL 70-110 H 1659597785) DIANE (test code = DIANE) Notified Provider Lab Interpretation (test Abnormal code = 70733-6) [facility] (for use with Heparin Practice Guideline). Note: Draw and Send all Lab STAT.2019-01-25 12:29:00 Test Item Value Reference Range Interpretation Comments APTT Patient (test code >150 See_Comment HH [Au tomated message] = 3173-2) The system [employer] generated this result transmitted ref erence range: 26 - 36 Seconds. The reference range was not used to int erpret this result as normal/abnormal . Lab Interpretation (test Abnormal code = 93301-6) [facility] [id number] 10:41:00 Test Item Value Reference Range Interpretation Comments TROPONIN I (test 0.092 ng/mL See_Comment H [Automated code = 5307059530) message] The system which generated this result [...] ? Lab Interpretation Abnormal (test code = 59136-1) [id number] 06:38:00 Test Item Value Reference Range Interpretation Comments TROPONIN I (test 0.084 ng/mL See_Comment H [Automated code = 6421482056) message] The system which generated this result [...] ? Lab Interpretation Abnormal (test code = 69363-6) [facility] Metabolic Panel (NA, K, CL, CO2, GLUCOSE, BUN, CREATININE, CA)2019-01-25 06:14:00 Test Item Value Reference Range Interpretation Comments NA (test code = 138 mmol/L 135-145 3239212894) K (test code = 3.2 mmol/L 3.5-5 L 5922936871) CL (test code = 105 mmol/L 98-108 3313096379) CO2 TOTAL (test code = 24 mmol/L 23-31 3466932726) AGAP (test code = 2-16 3124186688) BUN (test code = 17 mg/dL 7-23 1772950079) GLUCOSE (test code = 197 mg/dL 70-110 H 3660632084) CREATININE (test code = 0.81 mg/dL 0.6-1.25 6656013930) CALCIUM (test code = 8.8 mg/dL 8.6-10.6 6589024053) eGFR Calculation mL/min/1.73m2 (Non-) (test code = 7953704764) eGFR Calculation mL/min/1.73m2 () (test code = 9579329136) DIANE (test code = DIANE) Association of [...] tests). Lab Interpretation Abnormal (test code = 20493-2) [facility] [id number] 06:14:00 Test Item Value Reference Range Interpretation Comments MAGNESIUM (test code = 7398003500) 1.6 mg/dL 1.7-2.4 L Lab Interpretation (test code = Abnormal 28802-5) [facility] WITH [id number] 05:47:00 Test Item Value Reference Range Interpretation Comments WBC (test code = See_Comment [Automated 0502-2) message] The sy stem which generated this result transmitted reference range : 4.20 - 10.70 10*3/?L. The reference range was not used to interpret this result as normal/abnormal . RBC (test code = See_Comment L [Automated 757-1) message] The sy stem which generated this [...] RDW-SD (test code = 41.7 fL 38.5-51.6 09670-2) RDW-CV (test code = 13.2 % 12.1-15.4 788-0) PLT (test code = See_Comment [Automated 777-3) message] The sy stem which generated this result transmitted reference range : 150 - 328 10*3/ ?L. The reference r batsheva was not used to interpret this result as normal/abnormal . MPV (test code = 9.9 fL 9.8-13 18381-0) NRBC/100 WBC (test See_Comment [Automat ed code = 4601553369) message] The system which generated this result transmitted reference range : 0.0 - 10.0 /100 WBCs. The refer ence range was not u sed to interpret th is result as normal/abnormal . NRBC x10^3 (test code <0.01 See_Comment [Auto mated = 9731958424) message] The s ystem which generated this result transmitted reference range : 10*3/?L. The reference range was not used to interpret this result as normal/abnormal . GRAN MAT (NEUT) % 46.4 % (test code = 770-8) IMM GRAN % (test code 0.30 % = 5570747531) LYMPH % (test code = 39.7 % 736-9) MONO % (test code = 7.6 % 5905-5) EOS % (test code = 5.5 % 713-8) BASO % (test code = 0.5 % 706-2) GRAN MAT x10^3(ANC) 2.81 10*3/uL 1.99-6.95 (test code = 4171824503) IMM GRAN x10^3 (test <0.03 0-0.06 code = 7873046471) LYMPH x10^3 (test code 2.40 10*3/uL 1.09-3.23 = 731-0) MONO x10^3 (test code 0.46 10*3/uL 0.36-1.02 = 742-7) EOS x10^3 (test code = 0.33 10*3/uL 0.06-0.53 711-2) BASO x10^3 (test code 0.03 10*3/uL 0.01-0.09 = 704-7) Lab Interpretation Abnormal (test code = 48450-6) [facility]2019-09-06 04:53:00 Test Item Value Reference Range Interpretation Comments MAGNESIUM (test code = 2352049277) 1.6 mg/dL 1.7-2.4 L Lab Interpretation (test code = Abnormal 94144-3) [facility] ABDOMEN PELVIS W [id number] 03:04:22 1.?No acute intra-abdominal abnormality. 2.?Status post cholecystectomy. 3.?Hepatic steatosis. 4.?The right femoral and left iliac veins are not opacified with contrast,these findings are similar to the 09/25/2018 comparison study. Findings areconcerning for deep vein thrombosis, and correlation with ultrasound isrecommended. I, MD. Erma, have reviewed this study and agree with [...] posterior spinal fusion hardware at left L4-L5. [facility], Radiant Results Inft User - 01/24/2019 10:04 [...] reviewed this study and agree with the abovereport.[facility]2019-01-24 23:34:00 Test Item Value Reference Range Interpretation Comments POCT GLU (test code = 2310528852) 236 mg/dL 70-110 H Lab Interpretation (test code = Abnormal 45490-0) [facility]inteTROP[facility]IN [id number] 22:31:00 Test Item Value Reference Range Interpretation Comments TROPONIN I (test 0.096 ng/mL See_Comment H [Automated code = 8438359837) message] The system which generated this result [...] ? Lab Interpretation Abnormal (test code = 57506-9) [facility] Metabolic Panel (NA, K, CL, CO2, GLUCOSE, BUN, CREATININE, CA)2019-01-24 22:20:00 Test Item Value Reference Range Interpretation Comments NA (test code = 143 mmol/L 135-145 2388510250) K (test code = 4.1 mmol/L 3.5-5 4451882018) CL (test code = 106 mmol/L 98-108 0137678205) CO2 TOTAL (test code = 22 mmol/L 23-31 L 9198645402) AGAP (test code = 2-16 4653843727) BUN (test code = 17 mg/dL 7-23 4067247282) GLUCOSE (test code = 299 mg/dL 70-110 H 2063957736) CREATININE (test code = 1.03 mg/dL 0.6-1.25 0202781365) CALCIUM (test code = 9.9 mg/dL 8.6-10.6 9606914950) eGFR Calculation mL/min/1.73m2 (Non-) (test code = 7849209924) eGFR Calculation mL/min/1.73m2 () (test code = 8023769551) DIANE (test code = DIANE) Association of [...] tests). Lab Interpretation Abnormal (test code = 83441-5) [facility] (ALB, T.PRO, BILI T, BU/BC, ALT, AST, ALK PHOS)2019-01-24 22:20:00 Test Item Value Reference Range Interpretation Comments TOTAL BILI (test code = 9573436697) 0.8 mg/dL 0.1-1.1 BILI UNCON (test code = 7846794562) 0.6 mg/dL 0.1-1.1 BILI CONJ (test code = 6010753001) 0.0 mg/dL 0-0.3 T PROTEIN (test code = 6634680151) 7.6 g/dL 6.3-8.2 ALBUMIN (test code = 9195228908) 4.5 g/dL 3.5-5 ALK PHOS (test code = 8731833688) 136 U/L 34-122 H ALT(SGPT) (test code = 0966431875) 31 U/L 9-51 AST(SGOT) (test code = 4357872509) 43 U/L 13-40 H Lab Interpretation (test code = Abnormal 13089-6) [facility]inteLipase [id number] 22:20:00 Test Item Value Reference Range Interpretation Comments LIPASE (test code = 9973277329) 168 U/L 0-220 Lab Interpretation (test code = Normal 93674-5) [facility]inteaPTT2019-09-05 22:18:00 Test Item Value Reference Range Interpretation Comments APTT Patient (test See_Comment [Automat ed code = 3173-2) message] The system which generated this result transmitted reference range : 23 - 38 Seconds . The reference range was not used to interpr et this result as normal/abnormal . DIANE (test code = DIANE) The [facility] patient population mean normal value for aPTT is 30 seconds. Lab Interpretation Normal (test code = 83254-3) [facility]inteXR CHEST 1 [id number] 22:17:46 No acute cardiopulmonary process. Stable cardiomegaly. [...] are seen in the right upper quadrant. [facility], Radiant Results Inft User - 01/24/2019 5:17 [...] reviewed this study and agree with the abovereport.[facility] PointeProthrombin Time (PT) / [id number] 22:16:00 Test Item Value Reference Range Interpretation [...] tions. Lab Interpretation (test Normal code = 52644-2) [facility] WITH [id number] 22:07:00 Test Item Value Reference Range Interpretation [...] RDW-SD (test code = 41.2 fL 38.5-51.6 57227-7) RDW-CV (test code = 13.0 % 12.1-15.4 788-0) PLT (test code = See_Comment [Automated 777-3) message] The sy stem which generated this result transmitted reference range : 150 - 328 10*3/ ?L. The reference r batsheav was not used to interpret this result as normal/abnormal . MPV (test code = 10.2 fL 9.8-13 50437-8) NRBC/100 WBC (test See_Comment [Automat ed code = 5043066815) message] The system which generated this result transmitted reference range : 0.0 - 10.0 /100 WBCs. The refer ence range was not u sed to interpret th is result as normal/abnormal . NRBC x10^3 (test code <0.01 See_Comment [Auto mated = 5427096674) message] The s [employer] which generated this result transmitted reference range : 10*3/?L. The reference range was not used to interpret this result as normal/abnormal . GRAN MAT (NEUT) % 49.3 % (test code = 770-8) IMM GRAN % (test code 0.30 % = 6568312681) LYMPH % (test code = 37.0 % 736-9) MONO % (test code = 9.5 % 5905-5) EOS % (test code = 3.6 % 713-8) BASO % (test code = 0.3 % 706-2) GRAN MAT x10^3(ANC) 3.15 10*3/uL 1.99-6.95 (test code = 5692462271) IMM GRAN x10^3 (test <0.03 0-0.06 code = 4581751945) LYMPH x10^3 (test code 2.37 10*3/uL 1.09-3.23 = 731-0) MONO x10^3 (test code 0.61 10*3/uL 0.36-1.02 = 742-7) EOS x10^3 (test code = 0.23 10*3/uL 0.06-0.53 711-2) BASO x10^3 (test code <0.03 0.01-0.09 = 704-7) Lab Interpretation Abnormal (test code = 40431-9) [facility]XR CHEST 1 [id number] 18:49:30 No acute cardiopulmonary abnormality. IElissa MD., [...] reviewed this study and agree with the abovereport.[facility] PointeBASIC METABOLIC PANEL (NA, K, CL, CO2, GLUCOSE, BUN, CREATININE, CA)2019-01-19 11:42:00 Test Item Value Reference Range Interpretation Comments NA (test code = 140 mmol/L 135-145 2901234224) K (test code = 4.1 mmol/L 3.5-5 2534882598) CL (test code = 109 mmol/L 98-108 H 3328431707) CO2 TOTAL (test code = 24 mmol/L 23-31 6557216097) AGAP (test code = 2-16 8299488814) BUN (test code = 11 mg/dL 7-23 7091032457) GLUCOSE (test code = 232 mg/dL 70-110 H 8806727741) CREATININE (test code = 0.53 mg/dL 0.6-1.25 L 0184438746) CALCIUM (test code = 8.7 mg/dL 8.6-10.6 9044813691) eGFR Calculation mL/min/1.73m2 (Non-) (test code = 9266831526) eGFR Calculation mL/min/1.73m2 () (test code = 3725421113) DIANE (test code = DIANE) Association of [...] tests). Lab Interpretation Abnormal (test code = 44896-6) [facility] PointeMAGNESIUM2019-08-31 11:42:00 Test Item Value Reference Range Interpretation Comments MAGNESIUM (test code = 7808494300) 2.0 mg/dL 1.7-2.4 Lab Interpretation (test code = Normal 44056-3) [facility] GLUCOSE (AUTOMATED)2019-01-19 08:50:00 Test Item Value Reference Range Interpretation Comments POCT GLU (test code = 6397097601) 226 mg/dL 70-110 H Lab Interpretation (test code = Abnormal 92405-9) [facility] GLUCOSE (AUTOMATED)2019-01-19 04:18:00 Test Item Value Reference Range Interpretation Comments POCT GLU (test code = 7071808374) 225 mg/dL 70-110 H Lab Interpretation (test code = Abnormal 24512-0) [facility] ACT LOW [id number] 02:35:00 Test Item Value Reference Range Interpretation Comments ACTLR (test code = See_Comment H [Automat ed message] 4885238798) The system [employer] generated this result transmitted ref erence range: 89 - 169 Seconds. The reference range was not used to int erpret this result as normal/abnormal . Lab Interpretation (test Abnormal code = 82223-8) [facility] GLUCOSE (AUTOMATED)2019-01-18 21:01:00 Test Item Value Reference Range Interpretation Comments POCT GLU (test code = 0117014886) 198 mg/dL 70-110 H Lab Interpretation (test code = Abnormal 85143-5) [facility] PointeHEPATIC FUNCTION PANEL (73494) (ALB,T.PRO,BILI T,BU/BC,ALT,AST,ALK PHOS)2019-01-18 16:11:00 Test Item Value Reference Range Interpretation Comments TOTAL BILI (test code = 0.5 mg/dL 0.1-1.6 8175177203) BILI UNCON (test code = 0.2 mg/dL 0.1-1.0 7822158738) BILI CONJ (test code = 0.0 mg/dL 0-0.3 1140777142) T PROTEIN (test code = 6.3 g/dL 6.3-8.2 2856269379) ALBUMIN (test code = 3.3 g/dL 3.5-5 L 7906211296) ALK PHOS (test code = 96 U/L 34-122 Slight hemolysis 2210625888) ALT(SGPT) (test code = 79 U/L 9-51 H Sligh t hemolysis 7344139384) AST(SGOT) (test code = 119 U/L 13-40 H Sligh t hemolysis 7863313906) Lab Interpretation (test Abnormal code = 54525-5) [facility]intePONC GLUCOSE (AUTOMATED)2019-01-18 16:09:00 Test Item Value Reference Range Interpretation Comments POCT GLU (test code = 8908384741) 181 mg/dL 70-110 H Lab Interpretation (test code = Abnormal 67077-0) [facility] GLUCOSE (AUTOMATED)2019-01-18 13:27:00 Test Item Value Reference Range Interpretation Comments POCT GLU (test code = 0158147217) 212 mg/dL 70-110 H Lab Interpretation (test code = Abnormal 96687-0) [facility] PointeTROPONIN [id number] 09:46:00 Test Item Value Reference Range Interpretation Comments TROPONIN I (test 0.011 ng/mL See_Comment [Automated code = 0900856152) message] The system which generated this result [...] ? Lab Interpretation Normal (test code = 51780-9) [facility] PointeMAGNESIUM2019-08-30 09:33:00 Test Item Value Reference Range Interpretation Comments MAGNESIUM (test code = 1.8 mg/dL 1.7-2.4 Sligh t hemolysis 1998239480) Lab Interpretation (test Normal code = 47419-9) [facility] PointePROTHROMBIN TIME / [id number] 09:22:00 Test Item Value Reference Range Interpretation Comments PROTIME PATIENT (test See_Comment [Auto mated message] code = 5964-2) The system [employer] generated this result transmitted ref erence range: 10.1 - 1 2.6 Seconds. The re ference range was not u sed to interpret this result as normal/abnor mal. INR (test code = 6301-6) Nor mal INR <1.1; Warfarin Therap eutic range 2.0 to 3. 0 or 2.5 to 3.5, dep ending upon the indica tions. Lab Interpretation (test Normal code = 31814-6) [facility] GLUCOSE (AUTOMATED)2019-01-18 08:24:00 Test Item Value Reference Range Interpretation Comments POCT GLU (test code = 0751761842) 244 mg/dL 70-110 H Lab Interpretation (test code = Abnormal 03295-4) [facility] GLUCOSE (AUTOMATED)2019-01-18 05:09:00 Test Item Value Reference Range Interpretation Comments POCT GLU (test code = 3190843834) 232 mg/dL 70-110 H Lab Interpretation (test code = Abnormal 85014-8) [facility] GLUCOSE (AUTOMATED)2019-01-18 00:54:00 Test Item Value Reference Range Interpretation Comments POCT GLU (test code = 5905524768) 258 mg/dL 70-110 H Lab Interpretation (test code = Abnormal 39014-7) [facility] [id number] 21:56:00 Test Item Value Reference Range Interpretation Comments TROPONIN I (test 0.016 ng/mL See_Comment [Automated code = 8484109887) message] The system which generated this result [...] ? Lab Interpretation Normal (test code = 96174-8) [facility] GLUCOSE (AUTOMATED)2019-01-17 21:08:00 Test Item Value Reference Range Interpretation Comments POCT GLU (test code = 7509620177) 209 mg/dL 70-110 H Lab Interpretation (test code = Abnormal 15108-1) [facility] [id number] 16:50:00 Test Item Value Reference Range Interpretation Comments TROPONIN I (test 0.017 ng/mL See_Comment [Automated code = 1190147813) message] The system which generated this result [...] ? Lab Interpretation Normal (test code = 94757-3) [facility] GLUCOSE (AUTOMATED)2019-01-17 16:44:00 Test Item Value Reference Range Interpretation Comments POCT GLU (test code = 1406319133) 204 mg/dL 70-110 H Lab Interpretation (test code = Abnormal 60355-6) [facility] GLUCOSE (AUTOMATED)2019-01-17 12:49:00 Test Item Value Reference Range Interpretation Comments POCT GLU (test code = 0998326649) 259 mg/dL 70-110 H Lab Interpretation (test code = Abnormal 74263-8) [facility] GLUCOSE (AUTOMATED)2019-01-17 10:37:00 Test Item Value Reference Range Interpretation Comments POCT GLU (test code = 0443594170) 312 mg/dL 70-110 H Lab Interpretation (test code = Abnormal 21292-8) [facility] PointeTROPONIN [id number] 10:31:00 Test Item Value Reference Range Interpretation Comments TROPONIN I (test 0.024 ng/mL See_Comment [Automated code = 5555839852) message] The system which generated this result [...] ? Lab Interpretation Normal (test code = 88054-6) [facility] PointeGLYCOSYLATED HEMOGLOBIN (A1C)2019-01-17 09:54:00 Test Item Value Reference [...] Indicated Lab Interpretation Abnormal (test code = 97941-9) [facility] PointeTroponin [id number] 05:57:00 Test Item Value Reference Range Interpretation Comments TROPONIN I (test 0.024 ng/mL See_Comment [Automated code = 4670139707) message] The system which generated this result [...] ? Lab Interpretation Normal (test code = 00636-0) [facility] Metabolic Panel (NA, K, CL, CO2, GLUCOSE, BUN, CREATININE, CA)2019-01-17 05:47:00 Test Item Value Reference Range Interpretation Comments NA (test code = 138 mmol/L 135-145 2185522148) K (test code = 3.6 mmol/L 3.5-5 3254670235) CL (test code = 102 mmol/L 98-108 2401660246) CO2 TOTAL (test code = 21 mmol/L 23-31 L 4920982619) AGAP (test code = 2-16 4736632996) BUN (test code = 24 mg/dL 7-23 H 9518252219) GLUCOSE (test code = 421 mg/dL 70-110 H 6841686752) CREATININE (test code = 0.79 mg/dL 0.6-1.25 3142854321) CALCIUM (test code = 10.2 mg/dL 8.6-10.6 5869755306) eGFR Calculation mL/min/1.73m2 (Non-) (test code = 8540592096) eGFR Calculation mL/min/1.73m2 () (test code = 6191816113) DIANE (test code = DIANE) Association of [...] tests). Lab Interpretation Abnormal (test code = 75059-8) [facility] PointeChes 1 [id number] 05:28:06 No radiographic cardiopulmonary disease. RL: 5252 [...] structures are normal. IMPRESSIONNo radiographic cardiopulmonary disease.RL: 5252Un[facility] CBC WITH [id number] 05:26:00 Test Item Value Reference Range Interpretation Comments WBC (test code = See_Comment [Automated 6934-2) message] The sy stem which generated this result transmitted reference range : 4.20 - 10.70 10*3/?L. The reference range was not used to interpret this result as normal/abnormal . RBC (test code = See_Comment [Automated 088-8) message] The sy stem which generated this [...] RDW-SD (test code = 39.6 fL 38.5-51.6 34771-9) RDW-CV (test code = 12.9 % 12.1-15.4 788-0) PLT (test code = See_Comment [Automated 777-3) message] The sy stem which generated this result transmitted reference range : 150 - 328 10*3/ ?L. The reference r batsheva was not used to interpret this result as normal/abnormal . MPV (test code = 10.3 fL 9.8-13 57011-6) NRBC/100 WBC (test See_Comment [Automat ed code = 1450776170) message] The system which generated this result transmitted reference range : 0.0 - 10.0 /100 WBCs. The refer ence range was not u sed to interpret th is result as normal/abnormal . NRBC x10^3 (test code <0.01 See_Comment [Auto mated = 1972712318) message] The s ystem which generated this result transmitted reference range : 10*3/?L. The reference range was not used to interpret this result as normal/abnormal . GRAN MAT (NEUT) % 51.5 % (test code = 770-8) IMM GRAN % (test code 0.50 % = 3976560313) LYMPH % (test code = 34.1 % 736-9) MONO % (test code = 10.4 % 5905-5) EOS % (test code = 3.1 % 713-8) BASO % (test code = 0.4 % 706-2) GRAN MAT x10^3(ANC) 3.88 10*3/uL 1.99-6.95 (test code = 0404055559) IMM GRAN x10^3 (test 0.04 10*3/uL 0-0.06 code = 0894700304) LYMPH x10^3 (test code 2.57 10*3/uL 1.09-3.23 = 731-0) MONO x10^3 (test code 0.78 10*3/uL 0.36-1.02 = 742-7) EOS x10^3 (test code = 0.23 10*3/uL 0.06-0.53 711-2) BASO x10^3 (test code 0.03 10*3/uL 0.01-0.09 = 704-7) Lab Interpretation Abnormal (test code = 23932-4) [facility] PointeCOMPREHENSIVE METABOLIC [id number] 18:02:00 Test Item Value Reference Range Interpretation [...] 50-136 H TOTAL (test code = ALKP) [id number] 18:02:00 Test Item Value Reference Range Interpretation Comments AMYLASE (test code = SERGIO) 82 Unit/L 25-115 N [id number] 18:02:00 Test Item Value Reference Range Interpretation Comments LIPASE (test code = LIP) 185 Unit/L 114-286 N COMPREHENSIVE METABOLIC [id number] 17:56:00 Test Item Value Reference Range Interpretation [...] TOTAL Unit/L 50-136 (test code = ALKP) [id number] 17:56:00 Test Item Value Reference Range Interpretation Comments AMYLASE (test code = SERGIO) Unit/L 25-115 [id number] 17:56:00 Test Item Value Reference Range Interpretation Comments LIPASE (test code = LIP) 185 Unit/L 114-286 N CBC W/AUTO [id number] 17:46:00 Test Item Value Reference Range Interpretation [...] CRITERIA MDIFF) - CT ABD PELVIS W/O [id number] 17:46:00 Name: ERNIE VANCE [facility] : 1960 Age/S: 58 / M [address] Unit #: [id number] Loc: [place] [address] Phys: Nila Chester MD Acct: [id number] Dis Date: Status: REG ER PHONE #: [phone] Exam Date: 01/03/2019 6114 FAX #: Reason: llq EXAMS: CPT: [id number] CT ABD PELVIS W/O CONT 03756 Location ofdictation: B2 CT abdomen and pelvis [...] Report (CONTINUED) Name: ERNIE VANCE [facility] : 1960 Age/S: 58 / M [address] Unit #: [id number] Loc: [place] [address] Phys: Rochelle Chester MD Acct: [id number] Dis Date: Status: REG ER PHONE #: [phone] Exam Date: 01/03/2019 2050 FAX #: Reason: llq EXAMS: CPT: [id number] CT ABD PELVIS W/O CONT 79175 <Continued> at 3146 Reported and signed by: Renuka Willett M.D. CC: Nila Chester MD Technologist:Tavon Jurado,RT(R)(CT)(MRI) CTDI: DLP: Trnscb Date/Time: 01/03/2019 (6874) [email or web address] Orig Print D/T: S: 01/03/2019 (8733) PAGE 2 Signed ReportBedside [id number] 11:47:00 Test Item Value Reference Range Interpretation Comments Bedside Glucose (test code = 01391-1) 155 70-120 H Meter ID: [id number] MainlandCarbon Dioxide Level 2017-10-27 08:31:00 Test Item Value Reference Range Interpretation Comments Carbon Dioxide Level (test code = 8-9) [facility] MainlandAnion [id number] 08:31:00 Test Item Value Reference Range Interpretation Comments Anion Gap (test code = 17602-6) 12.0 8-16 [facility]landBlood Urea Ienywfly3688-76-64 08:31:00 Test Item Value Reference Range Interpretation Comments Blood Urea Nitrogen (test code = 12-14 3094-0) [facility]landCreatinine2018-06-08 08:31:00 Test Item Value Reference Range Interpretation Comments Creatinine (test code = 2160-0) 0.72 0.72-1.25 [facility]landBUN/Creatinine [id number] 08:31:00 Test Item Value Reference Range Interpretation Comments BUN/Creatinine Ratio (test code = 11-13 3097-3) [facility] MainlandEstimat Glomerular Filtration Rate 2017-10-27 08:31:00 Test Item Value Reference Range Interpretation Comments Estimat Glomerular Filtration Rate 60- >60 (test code = 79215-3) Ranges were taken from the National Kidney Disease Education Program and the National Kidney Foundation literature.Reference ranges:60 or greater: [place]19- 59 (for 3 consecutive months): Chronic kidneydisease 15 or less: Kidney failure [facility]landGlucose Ztlwa7928-54-28 08:31:00 Test Item Value Reference Range Interpretation Comments Glucose Level (test code = HRM9780) 195 74-118 H [facility]landCalcium Aebed5848-02-99 08:31:00 Test Item Value Reference Range Interpretation Comments Calcium Level (test code = 45768-8) 9.0 8.4-10.2 [facility]odium Ajwbe0621-58-30 08:31:00 Test Item Value Reference Range Interpretation Comments Sodium Level (test code = 2951-2) 139 136-145 [facility]landPotassium [id number] 08:31:00 Test Item Value Reference Range Interpretation Comments Potassium Level (test code = 2823-3) 4.0 3.5-5.1 [facility]landChloride Sydjk2406-19-18 08:31:00 Test Item Value Reference Range Interpretation Comments Chloride Level (test code = 2075-0) 106 98-107 [facility]landWhite Blood [id number] 08:12:00 Test Item Value Reference Range Interpretation Comments White Blood Count (test code = 6690-2) 6.06 4.8-10.8 [facility] MainlandRed Blood Mtofz6194-27-20 08:12:00 Test Item Value Reference Range Interpretation Comments Red Blood Count (test code = 789-8) 4.22 4.3-5.7 L [facility]landHemoglobin2018-06-08 08:12:00 Test Item Value Reference Range Interpretation Comments Hemoglobin (test code = 55438-4) 12.5 14.0-18.0 L [facility]landHematocrit2018-06-08 08:12:00 Test Item Value Reference Range Interpretation Comments Hematocrit (test code = 4544-3) 36.2 38.2-49.6 L [facility] MainlandMean Corpuscular Xszgcm5528-37-07 08:12:00 Test Item Value Reference Range Interpretation Comments Mean Corpuscular Volume (test code = 85.8 81-99 787-2) [facility] MainlandMean Corpuscular [id number] 08:12:00 Test Item Value Reference Range Interpretation Comments Mean Corpuscular Hemoglobin (test code 29.6 28-32 = 785-6) [facility] MainlandMean Corpuscular Hemoglobin Concent 2017-10-27 08:12:00 Test Item Value Reference Range Interpretation Comments Mean Corpuscular Hemoglobin Concent 34.5 31-35 (test code = 786-4) [facility] MainlandRed Cell Distribution Slqrf2538-95-23 08:12:00 Test Item Value Reference Range Interpretation Comments Red Cell Distribution Width (test code 14.2 11.7-14.4 = 57923-6) [facility] MainlandPlatelet [id number] 08:12:00 Test Item Value Reference Range Interpretation Comments Platelet Count (test code = 777-3) 263 140-360 [facility]landNeutrophils (%) (Auto)2017-10-27 08:12:00 Test Item Value Reference Range Interpretation Comments Neutrophils (%) (Auto) (test code = 51.2 38.7-80.0 60568-5) [facility]landLymphocytes (%) (Auto)2017-10-27 08:12:00 Test Item Value Reference Range Interpretation Comments Lymphocytes (%) (Auto) (test code = 33.7 18.0-39.1 736-9) [facility]landMonocytes (%) (Auto)2017-10-27 08:12:00 Test Item Value Reference Range Interpretation Comments Monocytes (%) (Auto) (test code = 9.1 4.4-11.3 5905-5) [facility]landEosinophils (%) (Auto)2017-10-27 08:12:00 Test Item Value Reference Range Interpretation Comments Eosinophils (%) (Auto) (test code = 4.8 0.0-6.0 713-8) [facility]landBasophils (%) (Auto)2017-10-27 08:12:00 Test Item Value Reference Range Interpretation Comments Basophils (%) (Auto) (test code = 0.7 0.0-1.0 706-2) [facility]landIM GRANULOCYTES %2017-10-27 08:12:00 Test Item Value Reference Range Interpretation Comments IM GRANULOCYTES % (test code = IM 0.5 0.0-1.0 GRANULOCYTES %) [facility]landNeutrophils # (Auto)2017-10-27 08:12:00 Test Item Value Reference Range Interpretation Comments Neutrophils # (Auto) (test code = 3.1 2.1-6.9 751-8) [facility]landLymphocytes # (Auto)2017-10-27 08:12:00 Test Item Value Reference Range Interpretation Comments Lymphocytes # (Auto) (test code = 2.0 1.0-3.2 84799-7) [facility]landMonocytes # (Auto)2017-10-27 08:12:00 Test Item Value Reference Range Interpretation Comments Monocytes # (Auto) (test code = 742-7) 0.6 0.2-0.8 [facility]landEosinophils # (Auto)2017-10-27 08:12:00 Test Item Value Reference Range Interpretation Comments Eosinophils # (Auto) (test code = 0.3 0.0-0.4 711-2) [facility]landBasophils # (Auto)2017-10-27 08:12:00 Test Item Value Reference Range Interpretation Comments Basophils # (Auto) (test code = 704-7) 0.0 0.0-0.1 [facility] MainlandAbsolute Immature Granulocyte (auto 2017-10-27 08:12:00 Test Item Value Reference Range Interpretation Comments Absolute Immature Granulocyte (auto 0.03 0-0.1 (test code = Absolute Immature Granulocyte (auto) [facility] MainlandCreatine Kinase [id number] 15:14:00 Test Item Value Reference Range Interpretation Comments Creatine Kinase MB (test code = 3.90 0-5.0 41087-1) [facility] MainlandTroponin [id number] 15:14:00 Test Item Value Reference Range Interpretation Comments Troponin I (test code = XQF8483) 0.054 0-0.300 [facility] MainlandCreatine Jssaoi6057-89-89 15:07:00 Test Item Value Reference Range Interpretation Comments Creatine Kinase (test code = 2157-6) 297 30-200 H [facility] MainlandHemoglobin A1c Gerdhmx2172-23-22 08:04:00 Test Item Value Reference Range Interpretation Comments Hemoglobin A1c Percent (test code = 12.6 4.0-7.0 H Hemoglobin A1c Percent) [facility] MainlandTriglycerides Stohi7295-90-37 06:57:00 Test Item Value Reference Range Interpretation Comments Triglycerides Level (test code = 200 0-149 H 2571-8) [facility] MainlandCholesterol Dnbxv3881-32-90 06:57:00 Test Item Value Reference Range Interpretation Comments Cholesterol Level (test code = 2093-3) 239 0-199 H Less than 200 mg/dL Low [place]975 - 239 mg/dL Borderline Lsgi380 mg/dl and greaterHigh RiskHCA Houston Healthcare MainlandLDL Cholesterol 2017-10-24 06:57:00 Test Item Value Reference Range Interpretation Comments LDL Cholesterol (test code = 2089-1) 164 60-130 H [facility] MainlandHDL Mwxnepomsmf1734-24-48 06:57:00 Test Item Value Reference Range Interpretation Comments HDL Cholesterol (test code = 2085-9) 35 40-60 L [facility] MainlandCholesterol/HDL Xfemi2862-98-06 06:57:00 Test Item Value Reference Range Interpretation Comments Cholesterol/HDL Ratio (test code = 6.8 3.9-4.7 H 9830-1) [facility] MainlandUrine Opiates Jwkffj1693-37-02 16:18:00 Test Item Value Reference Range Interpretation Comments Urine Opiates Screen (test code = NEGATIVE NEGATIVE 80536-4) [facility] MainlandUrine Barbiturates Hekvhq0824-37-57 16:18:00 Test Item Value Reference Range Interpretation Comments Urine Barbiturates Screen (test code NEGATIVE NEGATIVE = 804060118) [facility] MainlandUrine Phencyclidine [id number] 16:18:00 Test Item Value Reference Range Interpretation Comments Urine Phencyclidine Screen (test NEGATIVE NEGATIVE code = 24091-1) [facility] Amphetamines Ssgsrw5824-08-18 16:18:00 Test Item Value Reference Range Interpretation Comments Urine Amphetamines Screen (test code NEGATIVE NEGATIVE = 03210-2) [facility] Methamphetamines Ecebih1968-43-09 16:18:00 Test Item Value Reference Range Interpretation Comments Urine Methamphetamines Screen (test NEGATIVE NEGATIVE code = Urine Methamphetamines Screen) [facility] Benzodiazepines [id number] 16:18:00 Test Item Value Reference Range Interpretation Comments Urine Benzodiazepines Screen (test NEGATIVE NEGATIVE code = 61377-4) [facility] Cocaine [id number] 16:18:00 Test Item Value Reference Range Interpretation Comments Urine Cocaine Screen (test code = NEGATIVE NEGATIVE 3398-5) [facility] Cannabinoids [id number] 16:18:00 Test Item Value Reference Range Interpretation Comments Urine Cannabinoids Screen (test code NEGATIVE NEGATIVE = 70286-0) THESE RESULTS ARE FOR MEDICAL TREATMENT ONLYTHIS REPORT CONTAINS UNCONFIRMED SCREENING RESULTS*POSITIVE RESULTS WILL BE CONFIRMED BY REFERENCE LAB UPON REQUEST CUT-OFFDRUG CLASS CONCENTRATION ng/mLAmphetamines 1000Met hamphetamines 1000Cocaine 300Opiate 300Phencyclidine 25Cannabinoid 50Barbiturates 300Benzodiazepine 300Methadone 300[facility] Methadone Xxlhxz3649-18-00 16:18:00 Test Item Value Reference Range Interpretation Comments Urine Methadone Screen (test code = NEGATIVE NEGATIVE 81182-2) THESE RESULTS ARE FOR MEDICAL TREATMENT ONLYTHIS REPORT CONTAINS UNCONFIRMED SCREENING RESULTS*POSITIVE RESULTS WILL BE CONFIRMED BY REFERENCE LAB UPON REQUEST CUT-OFFDRUG CLASS CONCENTRATION ng/mLAmphetamines 1000Met hamphetamines 1000Cocaine Metabolite 300Opiate 300Phencyclidine 25Cannabinoid 50Barbiturates 300Benzodiazepine 300Methadone 300[facility] CampusProthrombin Nrkf3963-02-77 14:13:00 Test Item Value Reference Range Interpretation Comments Prothrombin Time (test code = 5902-2) 13.6 11.9-14.5 [facility]landProthromb Time International Ratio 2017-10-23 14:13:00 Test Item Value Reference Range Interpretation Comments Prothromb Time International Ratio 1.13 (test code = 6301-6) Oral Anticoagulant Therapy INR Values:1. Low Intensity Therapy 1.5 - 2.02. Moderate IntensityTherapy 2.0 - 3.03. High Intensity Therapy(1) 2.5 - 3.54. High Intensity Therapy(2) 3.0 - 4.05. Panic Value INR > 5.0[facility]landActivated Partial Thromboplast Time 2017-10-23 14:13:00 Test Item Value Reference Range Interpretation Comments Activated Partial Thromboplast Time 27.6 23.8-35.5 (test code = 46154-7) [facility]landTotal Uttvazdxr5189-85-34 14:10:00 Test Item Value Reference Range Interpretation Comments Total Bilirubin (test code = 1975-2) 0.6 0.2-1.2 [facility]landAspartate Amino Transf (AST/SGOT) 2017-10-23 14:10:00 Test Item Value Reference Range Interpretation Comments Aspartate Amino Transf (AST/SGOT) (test 36 5-34 H code = Aspartate Amino Transf (AST/SGOT)) [facility]landAlanine Aminotransferase (ALT/SGPT) 2017-10-23 14:10:00 Test Item Value Reference Range Interpretation Comments Alanine Aminotransferase (ALT/SGPT) 34 0-55 (test code = 1742-6) [facility]Total Ulymzfu1067-48-45 14:10:00 Test Item Value Reference Range Interpretation Comments Total Protein (test code = 2885-2) 7.3 6.5-8.1 [facility]landAlbumin2018-06-04 14:10:00 Test Item Value Reference Range Interpretation Comments Albumin (test code = 1751-7) 4.0 3.5-5.0 [facility]landGlobulin2018-06-04 14:10:00 Test Item Value Reference Range Interpretation Comments Globulin (test code = 34224-1) 3.3 2.3-3.5 [facility]landAlbumin/Globulin Ptxhf5924-53-08 14:10:00 Test Item Value Reference Range Interpretation Comments Albumin/Globulin Ratio (test code = 1.2 0.8-2.0 1759-0) [facility]landAlkaline Wsxchkfysxn5762-68-73 14:10:00 Test Item Value Reference Range Interpretation Comments Alkaline Phosphatase (test code = 109 40-150 6768-6) [facility]landB-Type Natriuretic Nplwvkq3333-58-53 14:10:00 Test Item Value Reference Range Interpretation Comments B-Type Natriuretic Peptide (test code = 92.8 0-100 55649-9) [facility]landAmylase Txgsc0550-60-21 14:10:00 Test Item Value Reference Range Interpretation Comments Amylase Level (test code = 1798-8) 126 25-125 H [facility]landLipase2018-06-04 14:10:00 Test Item Value Reference Range Interpretation Comments Lipase (test code = 3040-3) 98 8-78 H [facility]landD-Dimer Quantitative (PE/DVT)2017-10-23 14:02:00 Test Item Value Reference Range Interpretation Comments D-Dimer Quantitative (PE/DVT) (test 0.49 0.00-0.45 H code = 65620-3) [facility]landDirect Njkoeuzal5795-75-62 13:47:00 Test Item Value Reference Range Interpretation Comments Direct Bilirubin (test code = 48711-7) 0.2 0.0-5.0 [facility]landMagnesium Sqkiz6610-30-33 06:52:00 Test Item Value Reference Range Interpretation Comments Magnesium Level (test code = 32274-8) 1.5 1.3-2.1 [facility]landUrine [id number] 05:09:00 Test Item Value Reference Range Interpretation Comments Urine WBC (test code = 5821-4) NONE 0-5 [facility]landU[facility] [id number] 05:09:00 Test Item Value Reference Range Interpretation Comments Urine RBC (test code = 57778-9) NONE 0-5 [facility]landUrine Qhkybxpi7174-97-51 05:09:00 Test Item Value Reference Range Interpretation Comments Urine Bacteria (test code = 28585-7) NONE NONE [facility]landUrine Epithelial Hdyum8827-11-90 05:09:00 Test Item Value Reference Range Interpretation Comments Urine Epithelial Cells (test code = NONE NONE 10572-4) [facility]landUrine Evohc5994-70-38 04:46:00 Test Item Value Reference Range Interpretation Comments Urine Color (test code = 5778-6) YELLOW YELLOW [facility]landUrine Etxofbk9870-54-00 04:46:00 Test Item Value Reference Range Interpretation Comments Urine Clarity (test code = 48664-8) CLEAR CLEAR [facility] Specific Pnuxbbd3394-05-49 04:46:00 Test Item Value Reference Range Interpretation Comments Urine Specific [place] (test code = 1.010 1.010-1.025 5811-5) [facility] yI5195-90-24 04:46:00 Test Item Value Reference Range Interpretation Comments Urine pH (test code = 77992-9) 8 5-7 H [facility] Leukocyte Iwlosyux1544-25-84 04:46:00 Test Item Value Reference Range Interpretation Comments Urine Leukocyte Esterase (test code NEGATIVE NEGATIVE = 5799-2) [facility] Geagxhe2227-99-14 04:46:00 Test Item Value Reference Range Interpretation Comments Urine Nitrite (test code = 92521-9) NEGATIVE NEGATIVE [facility] Vqxfmzu2154-56-24 04:46:00 Test Item Value Reference Range Interpretation Comments Urine Protein (test code = 5804-0) NEGATIVE NEGATIVE [facility] Glucose (UA)2017-03-05 04:46:00 Test Item Value Reference Range Interpretation Comments Urine Glucose (UA) (test code = NEGATIVE NEGATIVE 2349-9) [facility] Iynogjh1849-35-09 04:46:00 Test Item Value Reference Range Interpretation Comments Urine Ketones (test code = 27829-7) NEGATIVE NEGATIVE [facility] Xnmjoxtasevh2721-62-84 04:46:00 Test Item Value Reference Range Interpretation Comments Urine Urobilinogen (test code = 0.2 0.2-1 78198-8) [facility] Nlzaofask3626-48-02 04:46:00 Test Item Value Reference Range Interpretation Comments Urine Bilirubin (test code = 1978-6) NEGATIVE NEGATIVE [facility] Uaumg0620-28-21 04:46:00 Test Item Value Reference Range Interpretation Comments Urine Blood (test code = 11939-5) 2+ NEGATIVE H [facility] CampusCTA BRAIN [facility] [address] [address] Patient Name: ERNIE VANCE MR #: [id number] : 1960 Age/Sex: 57/M Req #: [id number] Adm Physician: ALEXIS COX MD Ordered by: ALEXIS COX MD Report #: [id number] Location: [facility] Room/Bed: [place] [address] Procedure: [id number] CT/CTA BRAIN Exam Date: 10/24/17 Exam Time: [...] COPY TO: ALEXIS COX MDCT BRAIN [place] [address] Patient Name: ERNIE VANCE MR #: [id number] : 1960 Age/Sex: 57/M Req #: [id number] Adm Physician: Ordered by: ARLETH WAHL MD Report #: [id number] Location: ER Room/Bed: Procedure: [id number] CT/CT BRAIN WO Exam Date: 10/23/17 Exam [...] COPY TO: ARLETH WAHL MD CTA CHEST [place] [address] Patient Name: ERNIE VANCE MR #: [id number] : 1960 Age/Sex: 57/M Req #: [id number] Adm Physician: Ordered by: ARLETH WAHL MD Report #: [id number] Location: ER Room/Bed: Procedure: [id number] CT/CTA CHEST Exam Date: 10/23/17 Exam Time: [...] reviewed and is below limits set by [facility]). FINDINGS: Lines and Tubes: Pacemaker [...] 4:21 PM Dictated By: MALACHI IRIZARRY MD 20 Transcribed By: ANDREE on 10/23/17 162 COPY TO: ARLETH WAHL V [facility] SINGLE (PORTABLE) [place] [address] Patient Name: ERNIE VANCE MR #: [id number] : 1960 Age/Sex: 57/M Req #: [id number] Adm Physician: Ordered by: ARLETH WAHL MD Report #: [id number] Location: ER Room/Bed: Procedure: [id number] DX/CHEST SINGLE (PORTABLE) Exam Date: 10/23/17 Exam [...] TO: ARLETH WAHL V MDCT BRAIN [place] [address] Patient Name: ERNIE VANCE MR #: [id number] : 1960 Age/Sex: 56/M Req #: [id number] Adm Physician: Ordered by: JACQUELYN MONTES DE OCA MD Report #: [id number] Location: ER Room/Bed: Procedure: [id number] CT/CT BRAIN WO Exam Date:Exam Time: REPORT [...] DE OCA MD CT CERVICAL SPINE WO [place] [address] Patient Name: ERNIE VANCE MR #: [id number] : 1960 Age/Sex: 56/M Req #: [id number] Adm Physician: Ordered by: JACQUELYN MONTES DE OCA MD Report #: [id number] Location: ER Room/Bed: Procedure: [id number] CT/CT CERVICAL SPINE WO Exam Date: Exam [...] 04/04/17206 COPY TO: JACQUELYN MONTES DE OCA [facility] [place] [address] Patient Name: ERNIE VANCE MR #: [id number] : 1960 Age/Sex: 56/M Req #: [id number] Adm Physician: Ordered by: JACQUELYN MONTES DE OCA MD Report #: [id number] Location: ER Room/Bed: Procedure: [id number] DX/CHEST SINGLE (PORTABLE) Exam Date: 04/04/17 Exam [...] OCA MDHIP RIGHT 2-3 VW (+/- PELVIS) [place] [address] Patient Name: ERNIE VANCE MR #: [id number] : 1960 Age/Sex: 56/M Req #: [id number] Adm Physician: Ordered by: JACQUELYN MONTES DE OCA MD Report #: [id number] Location: ER Room/Bed: Procedure: [id number] DX/HIP RIGHT 2-3 VW (+/- PELVIS) Exam [...] JACQUELYN AMAYA MDSP LUMBAR, COMPLETE MIN 4VW [place] [address] Patient Name: ERNIE VANCE MR #: [id number] : 1960 Age/Sex: 56/M Req #: [id number] Adm Physician: Ordered by: JACQUELYN MONTES DE OCA MD Report #: [id number] Location: ER Room/Bed: Procedure: [id number] DX/SP LUMBAR, COMPLETE MIN 4VW Exam Date: [...] JACQUELYN MONTES DE OCA MDUS ABDOMEN COMPLETE [facility] [address] [address] Patient Name: ERNIE VANCE MR #: [id number] : 1960 Age/Sex: 56/M Req #: [id number] Adm Physician: NICHELLE PALACIOS MD Ordered by: SCOTT AMIN MD Report #: [id number] Location: [facility] Room/Bed: [place] [address] Procedure: [id number] US/US ABDOMEN COMPLETE Exam Date: 03/08/17 Exam [...] at 10:40 Dictated By: BROOKE SAMPSON MD 39 Transcribed By: ANIBAL on 03/08/171039 COPY TO: [facility]INHERK[facility]Jeff SINGLE (PORT[facility]) [place] [address] Patient Name: ERNIE VANCE MR #: [id number] : 1960 Age/Sex: 56/M Req #: [id number] Adm Physician: Ordered by: JACQUELYN MONTES DE OCA MD Report #: [id number] Location: ER Room/Bed: Procedure: [id number] DX/CHEST SINGLE (PORTABLE) Exam Date: 03/05/17 Exam [...]
[2021-06-26] MEDS ORDERED: MORPHINE 2 MG/ML SYR ONE (02:33)
[2021-06-26] MEDS ORDERED: MORPHINE 4 MG/ML SYR ONE (02:34)
[2021-06-26 02:57] LABS: Urine Blood 2+ (Negative); Urine Glucose Trace (Negative); Urine Protein 3+ (Negative); Urine Specific Gravity 1.025 (1.005-1.030)
[2021-06-26 03:16] LABS: Barbiturates NEGATIVE (NEGATIVE); Benzodiazepines NEGATIVE (NEGATIVE); Cocaine NEGATIVE (NEGATIVE); METHAMPHETAM NEGATIVE (NEGATIVE); Methadone NEGATIVE (NEGATIVE); Opiates NEGATIVE (NEGATIVE); Phencyclidine NEGATIVE (NEGATIVE); THC Cannibis NEGATIVE (NEGATIVE); Urine Bacteria 20-50 /HPF (NONE SEEN); Urine Mucus 1+ /HPF (NONE SEEN); Urine Yeast FEW (NONE SEEN)
--- NOTE | 2021-06-26 03:41 | ER ---
[facility] Name: Ernie Ro[facility] Age: 61 yrs Sex: Male : 1960 Arrival Date: 06/26/2021 Time: 01:25 Bed 6 Private MD: Diagnosis: Contusion, bilateral BKA site;Hydrocele;UTI/ Urinary tract infection, site not specified Presentation: 06/26 01:25 Chief complaint: EMS states: Yesterday around 5 oclock he fell on both franco and is vc1 not having pain. No LOC. Coronavirus screen: At this time, the client does not indicate any symptoms associated with coronavirus-19. Ebola Screen: No symptoms or risks identified at this time. Initial Sepsis Screen: Does the patient meet any 2 criteria? No. Patient's initial sepsis screen is negative. Does the patient have a suspected source of infection? No. Patient's initial sepsis screen is negative. Risk Assessment: Do you want to hurt yourself or someone else? Patient reports no desire to harm self or others. Onset of symptoms was June 25, 2021 at 17:00. 01:25 Method Of Arrival: EMS: [facility] vc1 01:25 Acuity: TONE 3 vc1 01:35 Chief complaint: Patient states: I fell last night, I also have blood in my pee and my vc1 testicles are swollen. Triage Assessment: 01:30 General: Appears in no apparent distress. uncomfortable, slender, Behavior is calm, vc1 cooperative, appropriate for age. Pain: Complains of pain in lateral aspect of right thigh, right hamstring, medial aspect of right thigh and right quadriceps, lateral aspect of left thigh, left hamstring, medial aspect of left thigh and left quadriceps. Historical: - Allergies: 01:30 NKA; vc1 - Home Meds: 01:30 albuterol sulfate 90 mcg/actuation Inhl aepb [Active]; apixaban 5 mg Oral tab 1 tab 2 vc1 times per day [Active]; aspirin 81 mg Oral TbEC [Active]; atorvastatin 40 mg Oral tab 1 tab once daily [Active]; cyclobenzaprine 10 mg Oral tab 1 tab as needed [Active]; fenofibrate micronized 200 mg Oral Tb24 1 cap once daily [Active]; furosemide 40 mg Oral tab 1 tab once daily [Active]; gabapentin 800 mg Oral tab 1 tab 3 times per day [Active]; glipizide 10 mg Oral tab 1 tab once daily [Active]; Humulin N Pen 100 unit/mL (3 mL) Sub-Q inpn [Active]; levothyroxine 50 mcg Tb24 1 cap once daily [Active]; lisinopril 2.5 mg Oral tab 1 tab once daily [Active]; metformin 500 mg Oral tab 1 tab daily [Active]; omeprazole 20 mg Oral cpDR 1 cap once daily [Active]; spironolactone 25 mg Oral tab 1 tab once daily [Active]; tamsulosin 0.4 mg Oral Tb24 1 cap once daily [Active]; venlafaxine 75 mg Oral tab 1 tab 2 times per day [Active]; - PMHx: 01:30 Arthritis; Back pain; CVA; Depression; Diabetes - NIDDM; Fibromyalgia; GERD; High vc1 Cholesterol; Hyperlipidemia; Hypertension; Hypothyroidism; 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 - Social history:: Smoking status: Patient denies any tobacco usage or history of. Screenin:35 Abuse screen: Denies threats or abuse. Nutritional screening: No deficits noted. vc1 Tuberculosis screening: No symptoms or risk factors identified. Fall Risk Fall in past 12 months (25 points). Secondary diagnosis (15 points) impaired mobility, Ambulatory Aid- None/Bed Rest/Nurse Assist (0 pts). Total Cummings Fall Scale indicates Low Risk Score (25-44 pts). Fall prevention measures have been instituted. Side Rails Up X 2. Assessment: 02:17 General: Appears uncomfortable, Behavior is calm, cooperative. Pain: Complains of pain as6 in right leg and right quadriceps and medial aspect of right thigh and right hamstring and lateral aspect of right thigh. Neuro: Level of Consciousness is awake, alert, obeys commands, Oriented to person, place, time, situation. Cardiovascular: Capillary refill < 3 seconds Patient's skin is warm and dry. Respiratory: Airway is patent Trachea midline Respiratory effort is even, unlabored, Respiratory pattern is regular, symmetrical. 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 Vital Signs: 01:25 BP 147 / 96; Pulse 100; Resp 18; Temp 97.4; Pulse Ox 100% ; Weight 72.57 kg; Pain 9/10; vc1 02:17 BP 156 / 103; Pulse 107; Resp 20 S; Pulse Ox 99% on R/A; as6 03:30 BP 141 / 89; Pulse 98; Resp 18 S; Pulse Ox 100% on R/A; as6 04:30 BP 147 / 91; Pulse 99; Resp 18 S; Pulse Ox 99% on R/A; as6 05:30 BP 131 / 78; Pulse 97; Resp 18 S; Pulse Ox 99% on R/A; as6 06:30 BP 130 / 78; Pulse 91; Resp 18 S; Pulse Ox 99% on R/A; as6 ED Course: 01:25 Patient arrived in ED. vc1 01:30 Triage completed. vc1 01:30 Arm band placed on right wrist. vc1 01:36 Patient has correct armband on for positive identification. vc1 02:06 Enoc Sahu, SHEBA is Primary Nurse. as6 02:11 Gagan Mujica MD is Attending Physician. mh7 03:00 Urine Microscopic Only Sent. as6 03:00 Urine Microscopic Only Sent. as6 03:00 UDS Sent. as6 03:29 Tib Fib Left XRAY In Process Unspecified. EDMS 03:29 Tib Fib Right XRAY In Process Unspecified. EDMS 03:32 US Scrotum Testicles In Process Unspecified. EDMS 03:42 Douglas Cagle MD is Referral Physician. mh7 06:57 No provider procedures requiring assistance completed. Patient did not have IV access as6 during this emergency room visit. Administered Medications: 02:37 Drug: morphine 5 mg Route: IM; Site: right ventrogluteal; as6 06:57 Follow up: Response: No adverse reaction; RASS: Alert and Calm (0) as6 03:53 Drug: KeFLEX (cephalexin) 500 mg Route: PO; vc1 06:57 Follow up: Response: No adverse reaction as6 Outcome: 03:41 Discharge ordered by . mh7 06:57 Discharged to home via ambulance. as6 06:57 Condition: stable 06:58 Discharge instructions given to patient, Instructed on discharge instructions, follow as6 up and referral plans. medication usage, Demonstrated understanding of instructions, follow-up care, medications, Prescriptions given X 2. 06:59 Patient left the ED. as6 Signatures: Dispatcher [employer] Gagan Hu MD MD mh7 Enoc Sahu RN RN as6 Michelle Spivey RN RN vc1
--- NOTE | 2021-06-26 03:41 | EDPHYS ---
Physician Documentation [facility] Name: Ernie Rooney Age: 61 yrs Sex: Male : 1960 Arrival Date: 06/26/2021 Time: 01:25 Bed 6 Private MD: ED Physician Gagan Mujica HPI: 06/26 02:24 This 61 yrs old Male presents to ER via EMS with complaints of Fall Injury. [facility] 02:24 Details of fall: The patient fell from seated position, out of a wheelchair, and struck [facility] wood amrik. 02:24 Onset: The symptoms/episode began/occurred yesterday, at 17:00. Associated injuries: mh7 The patient sustained left leg and right leg, painful injury. Severity of symptoms: At their worst the symptoms were moderate, last night, in the emergency department the symptoms have improved. Patient states that he fell while transferring from his wheelchair and hit both BKA stump. Denies any head injury or LOC.. Historical: - Allergies: 01:30 NKA; vc1 - Home Meds: 01:30 albuterol sulfate 90 mcg/actuation Inhl aepb [Active]; apixaban 5 mg Oral tab 1 tab 2 vc1 times per day [Active]; aspirin 81 mg Oral TbEC [Active]; atorvastatin 40 mg Oral tab 1 tab once daily [Active]; cyclobenzaprine 10 mg Oral tab 1 tab as needed [Active]; fenofibrate micronized 200 mg Oral Tb24 1 cap once daily [Active]; furosemide 40 mg Oral tab 1 tab once daily [Active]; gabapentin 800 mg Oral tab 1 tab 3 times per day [Active]; glipizide 10 mg Oral tab 1 tab once daily [Active]; Humulin N Pen 100 unit/mL (3 mL) Sub-Q inpn [Active]; levothyroxine 50 mcg Tb24 1 cap once daily [Active]; lisinopril 2.5 mg Oral tab 1 tab once daily [Active]; metformin 500 mg Oral tab 1 tab daily [Active]; omeprazole 20 mg Oral cpDR 1 cap once daily [Active]; spironolactone 25 mg Oral tab 1 tab once daily [Active]; tamsulosin 0.4 mg Oral Tb24 1 cap once daily [Active]; venlafaxine 75 mg Oral tab 1 tab 2 times per day [Active]; - PMHx: 01:30 Arthritis; Back pain; CVA; Depression; Diabetes - NIDDM; Fibromyalgia; GERD; High vc1 Cholesterol; Hyperlipidemia; Hypertension; Hypothyroidism; 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 - Social history:: Smoking status: Patient denies any tobacco usage or history of. ROS: 02:24 Constitutional: Negative for fever, chills, and weight loss, Eyes: Negative for injury, mh7 pain, redness, and discharge, ENT: Negative for injury, pain, and discharge, Neck: Negative for injury, pain, and swelling, Cardiovascular: Negative for chest pain, palpitations, and edema, Respiratory: Negative for shortness of breath, cough, wheezing, and pleuritic chest pain, Abdomen/GI: Negative for abdominal pain, nausea, vomiting, diarrhea, and constipation, Back: Negative for injury and pain. 02:24 Skin: Negative for injury, rash, and discoloration, Neuro: Negative for headache, weakness, numbness, tingling, and seizure, Psych: Negative for depression, anxiety, suicide ideation, homicidal ideation, and hallucinations, Allergy/Immunology: Negative for hives, rash, and allergies, Endocrine: Negative for neck swelling, polydipsia, polyuria, polyphagia, and marked weight changes, Hematologic/Lymphatic: Negative for swollen nodes, abnormal bleeding, and unusual bruising. 02:24 : Positive for hematuria, For 1 week intermittently, also scrotal swelling for several weeks, Negative for pelvic pain, flank pain, burning with urination, difficulty urinating, bladder incontinence, foul smelling urine, penile discharge, penile pain, testicular pain Exam: 02:24 Eyes: Pupils equal round and reactive to light, extra-ocular motions intact. Lids and mh7 lashes normal. Conjunctiva and sclera are non-icteric and not injected. Cornea within normal limits. Periorbital areas with no swelling, redness, or edema. Neck: Trachea midline, no thyromegaly or masses palpated, and no cervical lymphadenopathy. Supple, full range of motion without nuchal rigidity, or vertebral point tenderness. No Meningismus. Chest/axilla: Normal chest wall appearance and motion. Nontender with no deformity. No lesions are appreciated. Cardiovascular: Regular rate and rhythm with a normal S1 and S2. No gallops, murmurs, or rubs. Normal PMI, no JVD. No pulse deficits. Respiratory: Lungs have equal breath sounds bilaterally, clear to auscultation and percussion. No rales, rhonchi or wheezes noted. No increased work of breathing, no retractions or nasal flaring. Abdomen/GI: Soft, non-tender, with normal bowel sounds. No distension or tympany. No guarding or rebound. No evidence of tenderness throughout. Back: No spinal tenderness. No costovertebral tenderness. Full range of motion. Skin: Warm, dry with normal turgor. Normal color with no rashes, no lesions, and no evidence of cellulitis. 02:24 Constitutional: The patient appears in no acute distress, alert, awake, anxious. 02:24 Musculoskeletal/extremity: Extremities: noted in the left leg and right leg: tenderness, At bilateral BKA sites, ROM: intact in all extremities, Circulation is intact in all extremities. Sensation intact. Compartment Syndrome exam of affected extremity: is normal. no numbness, no tingling, no sensation deficit, no palor, no weak pulses. 02:24 Neuro: Orientation: is normal, Mentation: is normal, Memory: is normal, Cranial nerves: grossly normal, Cerebellar function: is grossly normal, Motor: is normal, Sensation: is normal, Gait: not tested. seizure activity, is not displayed by the patient, Abnormal movements: there are no abnormal movements. 02:24 Psych: Behavior/mood is anxious, Oriented to person, place, time, Patient has no thoughts/intents to harm self or others. Judgement / Insight is normal. Memory is normal. Delusions/hallucinations are not present. 02:24 : CVA tenderness, is absent, Male external genitalia: abrasion, is not present, mh7 erythema, is absent, penile discharge, is absent, puncture, is not present, swelling, scrotal, that is mild, tenderness, is not appreciated, ulceration, is not present, Bladder: is normal, Rectal exam: is refused by patient or guardian. Vital Signs: 01:25 BP 147 / 96; Pulse 100; Resp 18; Temp 97.4; Pulse Ox 100% ; Weight 72.57 kg; Pain 9/10; vc1 02:17 BP 156 / 103; Pulse 107; Resp 20 S; Pulse Ox 99% on R/A; as6 03:30 BP 141 / 89; Pulse 98; Resp 18 S; Pulse Ox 100% on R/A; as6 04:30 BP 147 / 91; Pulse 99; Resp 18 S; Pulse Ox 99% on R/A; as6 05:30 BP 131 / 78; Pulse 97; Resp 18 S; Pulse Ox 99% on R/A; as6 06:30 BP 130 / 78; Pulse 91; Resp 18 S; Pulse Ox 99% on R/A; as6 MDM: 03:33 Differential diagnosis: contusion, fracture. Data reviewed: vital signs, nurses notes, [facility] EMS record, old medical records, lab test result(s), urinalysis, radiologic studies, plain films. Data interpreted: Pulse oximetry: on room air is 99 %. Interpretation: normal. 03:39 Counseling: I had a detailed discussion with the patient and/or guardian regarding: the [facility] historical points, exam findings, and any diagnostic results supporting the discharge/admit diagnosis, the presence of at least one elevated blood pressure reading (>120/80) during this emergency department visit, lab results, radiology results, the need for outpatient follow up, an administrative operations coordinator, a urologist, to return to the emergency department if symptoms worsen or persist or if there are any questions or concerns that arise at home. Response to treatment: the patient's symptoms have markedly improved after treatment. 03:41 Patient medically screened. [facility] 06/26 02:31 Order name: Urine Microscopic Only [facility] 06/26 02:32 Order name: Urine Microscopic Only; Complete Time: 03:24 [facility] 06/26 02:50 Order name: UDS; Complete Time: 03:24 [facility] 06/26 02:56 Order name: Urine Dipstick-Ancillary; Complete Time: 03:24 [facility] 06/26 03:18 Order name: Urine Culture [facility] 06/26 02:23 Order name: Tib Fib Left XRAY [facility] 06/26 02:23 Order name: Tib Fib Right XRAY [facility] 06/26 02:28 Order name: Urine Dipstick-Ancillary (obtain specimen); Complete Time: 03:00 [facility] 06/26 02:28 Order name: US Scrotum Testicles [facility] Administered Medications: 02:37 Drug: morphine 5 mg Route: IM; Site: right ventrogluteal; as6 06:57 Follow up: Response: No adverse reaction; RASS: Alert and Calm (0) as6 03:53 Drug: KeFLEX (cephalexin) 500 mg Route: PO; vc1 06:57 Follow up: Response: No adverse reaction as6 Disposition Summary: 06/26/21 03:41 Discharge Ordered Location: Home [facility] Problem: new [facility] Symptoms: have improved [facility] Condition: Stable [facility] Diagnosis - Contusion, bilateral BKA site [facility] - Hydrocele [facility] - UTI/ Urinary tract infection, site not specified [facility] Followup: [facility] - With: Private Physician - When: 1 - 2 days - Reason: Worsening of condition, Recheck today's complaints, Continuance of care, Re-evaluation by your physician Followup: [facility] - With: Douglas Cagle MD - When: 1 - 2 days - Reason: Worsening of condition, Recheck today's complaints Discharge Instructions: - Discharge Summary Sheet [facility] - Urinary Tract Infection, Adult, Tazn-vs-Bhsn [facility] - Contusion, Cmjr-dg-Omrn [facility] - Hydrocele, Adult [facility] Forms: - Medication Reconciliation Form [facility] - Thank You Letter [facility] - Antibiotic Education [facility] - Prescription Opioid Use [facility] Prescriptions: - Cephalexin 500 mg Oral Capsule - take 1 capsule by ORAL route every 12 hours for 7 days; 14 capsule; Refills: 0, [facility] Product Selection Permitted - Ibuprofen 600 mg Oral Tablet - take 1 tablet by ORAL route every 8 hours As needed take with food; 15 tablet; [facility] Refills: 0, Product Selection Permitted Signatures: Dispatcher [employer] Gagan Hu MD MD 7 Enoc Sahu RN RN as6 Michelle Spivey RN RN vc1 Corrections: (The following items were deleted from the chart) 03:39 03:30 Urine Culture+[id number].LAB.BRZ ordered. EDUT EDMS
[2021-06-26] MEDS ORDERED: CEPHALEXIN 250 MG CAP ONE (03:51)
[2021-06-26 07:03] VITALS: TEMP 97.4
[2021-06-26 07:07] VITALS: O2SAT 99
[2021-06-26 07:10] VITALS: BP 130/78
--- NOTE | 2021-06-26 09:40 | RAD REPORT ---
EXAM DESCRIPTION: US - Scrotum Testicles - 06/26/2021 3:32 am CLINICAL HISTORY: Scrotal swelling COMPARISON: March 2021 FINDINGS: Right testicle measures 3.5 x 2.5 x 2.3 centimeters. Echotexture is homogeneous. Normal bl ood flow Left testicle measures 3 x 2.2 x 2 centimeters. Echotexture is homogeneous. Normal blood flow The epididymides are normal in size and echotexture. Normal blood flow is seen. Marked scrotal skin thickening. Small right hydrocele IMPRESSION: Marked scrotal skin thickening Small right hydrocele
--- NOTE | 2021-06-26 10:06 | RAD REPORT ---
EXAM DESCRIPTION: Felecia Helms Left06/26/2021 3:29 am CLINICAL HISTORY: Left leg pain status FINDINGS: No fracture is seen Below the knee amputation
--- NOTE | 2021-06-26 10:06 | RAD REPORT ---
EXAM DESCRIPTION: RAD - Tib Fib Right - 06/26/2021 3:29 am CLINICAL HISTORY: Right leg pain FINDINGS: No fracture is seen Below the knee amputation
== END 2021-06-26 06:59 | disposition home or self-care (01) ==
LOC: ER 01:17
DX: S80.12XA Contusion of left lower leg, initial encounter (principal); S80.11XA Contusion of right lower leg, initial encounter; N43.3 Hydrocele, unspecified; N39.0 Urinary tract infection, site not specified; W05.0XXA Fall from non-moving wheelchair, initial encounter; Z79.82 Long term (current) use of aspirin; Z95.0 Presence of cardiac pacemaker; Z86.73 Personal history of transient ischemic attack (TIA), and cerebral infarction without residual deficits; I10 Essential (primary) hypertension
CPT/HCPCS: 87088; 87086; 80307; 73590 ×2; 76870; 96372; 99284; J2270; 81003; 81015

== ENCOUNTER 2021-12-20 18:34 | Inpatient (IN) | payer OTHER ==
[2021-12-20] MEDS ORDERED: MORPHINE 4 MG/ML SYR ONE (19:03)
[2021-12-20] MEDS ORDERED: ONDANSETRON 4 MG/2 ML VIAL ONE (19:03)
[2021-12-20 19:13] LABS: Absolute Lymphocytes (CBC) 1.1 K/uL (0.7-4.9); Hematocrit 27.9 % (39.6-49.0); Lymphocytes % 20.8 % (15.3-44.8); MCV 90.1 fL (80-100); MPV 7.4 fL (7.6-11.3)
[2021-12-20 19:14] LABS: Protime INR 1.45
[2021-12-20 19:24] LABS: SARS-CoV-2 Antigen Rapid Res Negative (Negative)
[2021-12-20 19:28] LABS: Albumin 2.4 g/dL (3.4-5.0); Bilirubin Direct 0.2 mg/dL (0-0.2); Bilirubin Total 0.5 mg/dL (0.2-1.0); Potassium 3.9 mmol/L (3.5-5.1); Protein, Total 5.7 g/dL (6.4-8.2); Troponin High Sensitivity 17.8 pg/mL (<58.9)
--- NOTE | 2021-12-20 19:39 | RAD REPORT ---
EXAM DESCRIPTION: RAD - Chest Single View - 12/20/2021 7:34 pm CLINICAL HISTORY: CHEST PAIN Chest pain. COMPARISON: Chest Single View dated 06/08/2021; Chest Single View dated 03/31/2021; Chest Single View dated 02/14/2021; Chest Single View dated 07/31/2019 FINDINGS: Portable technique limits examination quality. Mild pulmonary edema suspected with small bilateral pleural effusions. The heart is moderately enlarg ed with sternotomy wires present. Dual lead pacer device. IMPRESSION: Mild CHF versus volume overload pattern.
[2021-12-20] MEDS ORDERED: HYDROCODONE/APAP 5/325 MG TAB ONE (22:15)
--- NOTE | 2021-12-20 22:27 | P.HP ---
Certification for Inpatient Patient admitted to: Observation With expected LOS: <2 Midnights Patient will require the following post-hospital care: None Practitioner: I am a practitioner with admitting privileges, knowledge of patient current condition, hospital course, and medical plan of care. Services: Services provided to patient in accordance with Admission requirements found in Title 42 Section 412.3 of the Code of Federal Regulations <Brendan Davis - Last Filed: 12/20/21 22:28> Patient History Date of Service: 12/20/21 Reason for admission: Chest pain History of Present Illness: 61-year-old male with history of CAD status post CABG with pacemaker/defibrillator, hypertension, hyperlipidemia, diabetes mellitus type [id number], hypothyroidism presents emerged department for chest pain. He reports that he was sitting in the couch earlier when he began to feel some palpitations, as if his heart was beating slower than normal as well as some chest pain. He reports that he he felt his defibrillator fire 3 times and was brought to the emergency department by EMS for further evaluation. His labs were significant for normocytic anemia, elevated BNP initial troponin negative EKG without acute changes. Patient reports pain is improved at this time he reports he is been without his home medications for last 3 weeks or so. Patient brought a bag of his empty pill bottles, he cannot be completely clear about which medications he does not does not still take he is supposed to see a new primary care doctor Dr. Montes but has yet to schedule an appointment. We will admit under observation for ACS rule out and further evaluation investigation of pacemaker/defibrillator. Patient has a [employer] pacemaker/defibrillator and there contacted the emergency department. - Past Medical/Surgical History Diabetic: Yes -: [place] -: GERD -: Hypertension -: Anxiety; depression -: DM insulin dependent -: Hypothyroidism -: enlarged prostate -: cataract in the left eye -: fibromyalgia -: hyperlipidemia -: neuropathy -: pacemaker placement May 2017 -: triple bypass 2002 4 stents -: back surgeries x 6 -: arthroscopic surgeries bilateral knees -: left forearm rodding -: Cholecystectomy -: Appendectomy -: tonsillectomy - Family History Mother -: Heart disease, Hypertension grandparents -: Diabetes, Stroke - Social History Smoking Status: Former smoker Alcohol use: No CD- Drugs: No Caffeine use: Yes Place of Residence: Home <Brendan Daivs - Last Filed: 12/20/21 22:28> Date of Service: 12/21/21 <Lopez Arrington - Last Filed: 12/21/21 16:27> Allergies No Known Allergies Allergy (Verified 12/21/21 00:23) Home Medications: Tamsulosin [Flomax*] 0.4 mg PO DAILY 11/19/18 lisinopriL [Prinivil*] 2.5 mg PO DAILY 11/19/18 Aspirin Chewable [Aspirin Chewable*] 81 mg PO BEDTIME 05/11/19 ondansetron HCL [Zofran] 4 mg PO Q8H PRN 08/01/19 Atorvastatin Calcium 40 mg PO DAILY 12/21/21 Cephalexin 500 mg PO BID 12/21/21 Cyclobenzaprine [Flexeril*] 10 mg PO BID PRN 12/21/21 Dicyclomine [Bentyl*] 20 mg PO QID 12/21/21 Docusate Sodium 100 mg PO BID 12/21/21 Furosemide 40 mg PO BID 12/21/21 Furosemide 40 mg PO DAILY 12/21/21 Gabapentin 800 mg PO BID 12/21/21 Ibuprofen [Ibu] 600 mg PO Q8H PRN 12/21/21 Levofloxacin [Levaquin] 500 mg PO DAILY 12/21/21 Levothyroxine Sodium [Levothyroxine] 50 mcg PO DAILY 12/21/21 Metformin HCl 500 mg PO DAILY 12/21/21 Metoprolol Succinate 0.5 tab PO DAILY 12/21/21 Omeprazole 20 mg PO DAILY 12/21/21 Spironolactone 25 mg PO DAILY 12/21/21 Tramadol HCl [Ultram] 50 mg PO PRN PRN 12/21/21 Venlafaxine HCl 75 mg PO BID 12/21/21 glipiZIDE [Glipizide] 10 mg PO DAILY 12/21/21 Review of Systems 10-point ROS is otherwise unremarkable Cardiovascular: Chest Pain, Palpitations, As per HPI <Brendan Davis - Last Filed: 12/20/21 22:28> Physical Examination - Physical Exam General: Alert, In no apparent distress, Oriented x3 HEENT: Atraumatic, PERRLA, Mucous membr. moist/pink, EOMI, Sclerae nonicteric Neck: Supple, 2+ carotid pulse no bruit, No LAD, Without JVD or thyroid abnormality Respiratory: Clear to auscultation bilaterally, Normal air movement Cardiovascular: Regular rate/rhythm, Normal S1 S2 Gastrointestinal: Normal bowel sounds, No tenderness Musculoskeletal: No tenderness, Other (Bilateral BKA) Integumentary: No rashes Neurological: Normal speech, Normal strength at 5/5 x4 extr, Normal tone, Normal affect - Studies Laboratory Data (last 24 hrs) 12/20/21 19:00: PT 16.1 H, INR 1.45 12/20/21 19:00: WBC 5.3, Hgb 9.5 L, Hct 27.9 L, Plt Count 211 12/20/21 19:00: Sodium 142, Potassium 3.9, BUN 14, Creatinine 0.68, Glucose 144 H, Total Bilirubin 0.5, AST 11 L, ALT 12, Alkaline Phosphatase 107 <Brendan Davis - Last Filed: 12/20/21 22:28> - Studies Laboratory Data (last 24 hrs) 12/20/21 19:00: PT 16.1 H, INR 1.45 12/20/21 19:00: WBC 5.3, Hgb 9.5 L, Hct 27.9 L, Plt Count 211 12/20/21 19:00: Sodium 142, Potassium 3.9, BUN 14, Creatinine 0.68, Glucose 144 H, Total Bilirubin 0.5, AST 11 L, ALT 12, Alkaline Phosphatase 107 <Lopez Arrington - Last Filed: 12/21/21 16:27> Assessment and Plan - Plan Assessment: Chest pain rule out ACS history of CAD status post three-vessel CABG Diabetes mellitus type [id number] Acute on chronic systolic congestive heart failure Hypertension Hyperlipidemia Plan: Chest pain rule out ACS history of CAD status post three-vessel CABG: Trend tr oponins, monitor on telemetry, cardiology consult in place. Continue his home medications of lisinopril, spironolactone, atorvastatin. We will hold metoprolol as patient felt as if his heart rate was low this evening and as if he wasa shocked, will have his pacemaker/defibrillator interrogated which has been initiated in the emergency department. Appreciate further input from cardiology. Echocardiogram ordered as well patient does appear to be mildly overloaded patient unsure of history of CHF but is prescribed Lasix, spironolactone, lisinopril. Diabetes mellitus type [id number]: ACH S Accu-Chek, sliding scale insulin. A1c in the morning. Acute on chronic systolic congestive heart failure: Echocardiogram ordered, cardiology consulted. Given dose of IV lasix in ED. Patient supposed to be on Lasix 40 mg twice daily at home has been out of his medication for the past 2-3 weeks. Will reinitiate. Last echo 01/2021 with mildly depressed LVEF 40-45%. Hypertension: Lisinopril, spironolactone continued currently holding metoprolol, will need to confirm other home medications which before beginning. Hyperlipidemia: Continue with atorvastatin. Lipid panel morning. DVT PPX: Lovenox Code status: Full Discharge Plan: Home Plan to discharge in: 24 Hours - Advance Directives Does patient have a Living Will: No Does patient have a Durable POA for Healthcare: No - Code Status/Comfort Care Code Status Assessed: Yes (Full code) Critical Care: No Time Spent Managing Pts Care (In Minutes): 70 <Brendan Davis - Last Filed: 12/20/21 22:28> Physician Review: Patient Assessed, Agree with Above Assessment and Plan <Lopez Arrington - Last Filed: 12/21/21 16:27>
[2021-12-20] MEDS ORDERED: FUROSEMIDE 40 MG/4 ML VIAL ONE (22:48)
[2021-12-21 04:06] LABS: Absolute Lymphocytes (CBC) 1.4 K/uL (0.7-4.9); Hematocrit 28.8 % (39.6-49.0); Lymphocytes % 25.7 % (15.3-44.8); MCV 89.2 fL (80-100); MPV 7.3 fL (7.6-11.3); RBC Red Blood Cell Count 3.23 M/uL (4.33-5.43)
[2021-12-21 04:34] LABS: Albumin 2.6 g/dL (3.4-5.0); Bilirubin Total 0.5 mg/dL (0.2-1.0); Potassium 3.9 mmol/L (3.5-5.1); Protein, Total 6.2 g/dL (6.4-8.2)
[2021-12-21 04:36] LABS: Thyroid Stimulating Hormone 5.72 uIU/mL (0.360-3.740)
[2021-12-21] MEDS ORDERED: MORPHINE 2 MG/ML SYR ONE ×3 (06:57→21:34)
[2021-12-21] MEDS ORDERED: ONDANSETRON 4 MG/2 ML VIAL ONE ×3 (06:57→21:45)
[2021-12-21] MEDS: ONDANSETRON 4 MG/2 ML VIAL IV PRN ×3 (06:58→21:44)
[2021-12-21] MEDS: MORPHINE 2 MG/ML SYR IV PRN ×3 (06:58→21:44)
[2021-12-21] MEDS: INSULIN -REGULAR HUMAN 50 UNIT/0.5 ML ML SQ SCH ×4 (07:30→21:00)
[2021-12-21] MEDS: LEVOTHYROXINE SOD 0.05 MG TABLET PO SCH (08:20)
--- NOTE | 2021-12-21 08:50 | EKG ---
Test Date: 2021-12-20 Test Time: 18:39:04 Sheeting Puller: GREGORY MEASUREMENT RESULTS: Intervals: Rate: 83 CO: 166 QRSD: 158 QT: 440 QTc: 517 [place]: P: 30 CO: 166 QRS: -47 T: 132 INTERPRETIVE STATEMENTS: Atrial-sensed ventricular-paced rhythm Abnormal ECG Compared to ECG 06/08/2021 05:09:16 No significant changes Electronically Signed On 12-21-21 08:47:00 CDT by Luca Royal
[2021-12-21] MEDS: lisinopriL 5 MG TAB PO SCH (09:00)
[2021-12-21] MEDS: SPIRONOLACTONE 25 MG TABLET PO SCH (09:00)
[2021-12-21] MEDS: FUROSEMIDE 40 MG TABLET PO SCH ×2 (09:00→17:00)
[2021-12-21] MEDS: APIXABAN 5 MG TABLET PO SCH ×2 (09:00→23:44)
[2021-12-21] MEDS: ASPIRIN EC 81 MG TAB PO SCH (09:00)
[2021-12-21] MEDS ORDERED: lisinopriL 5 MG TAB ONE (09:14)
[2021-12-21] MEDS ORDERED: FUROSEMIDE 20 MG TABLET ONE (09:14)
[2021-12-21] MEDS ORDERED: APIXABAN 5 MG TABLET ONE (09:15)
[2021-12-21] MEDS ORDERED: ASPIRIN EC 81 MG TAB PO ONE (09:15)
[2021-12-21] MEDS ORDERED: SPIRONOLACTONE 25 MG TABLET ONE (09:22)
--- OUTSIDE RECORDS SUMMARY | 2021-12-21 11:14 | XMS REPORT | Continuity of Care Document ---
:1960 Author Organization [facility] t Address [address] [place] [address] Care Team Providers Name Role Phone MONIKA HALL MD Primary Care Physician [id number] Attending Clinician Unavailable Harshal Zhu Attending Clinician Unavailable Finn Shah Attending Clinician Unavailable Troy KU Attending Clinician Unavailable Troy Wahl Attending Clinician MIHAELA MARTIN Attending Clinician Unavailable Mihaela Martin NP Attending Clinician Micaela Feliciano RN Attending Clinician Unavailable OC BRYSON Attending Clinician Unavailable ANA MARIA MEZA Attending Clinician Unavailable Wong_Rizwana Attending Clinician Unavailable Fede Carrera Attending Clinician Unavailable Radiology Attending Clinician Unavailable Gina Heath MD Attending Clinician KNOW, DOES_NOT Attending Clinician Unavailable Johnie Montanez Attending Clinician Unavailable ALEXIS COX Attending Clinician Unavailable JACQUELYN MONTES DE OCA Attending Clinician Unavailable NICHELLE PALACIOS Attending Clinician Unavailable [id number] Admitting Clinician Unavailable Nika Martin Admitting Clinician Unavailable KNOW, DOES_NOT Admitting Clinician Unavailable Physician, No Primary or Family Admitting Clinician UnavailTroy Dunne Admitting Clinician Unavailable MIHAELA MARTIN Admitting Clinician Unavailable OC BRYSON Admitting Clinician Unavailable LIZETT WEST Admitting Clinician Unavailable Portillo Admitting Clinician Unavailable Fede Carrera Admitting Clinician Unavailable Johnie Montanez Admitting Clinician Unavailable ALEXIS COX Admitting Clinician Unavailable NICHELLE PALACIOS Admitting Clinician Unavailable Payers Payer Name Policy Type Policy Number Effective Date Expiration Date S willow [facility] [id number] [employer] [id number] 2018spring 00:00:00 [employer] [id number] 2004 LUCY Frankel 00:00:00 [facility] Problems Condition Condition Condition Status Onset Resolution Last Treating Co mments Source Name Details Category Date Date Treatment Clinician Date AMS AMS Disease Active Univers (altered (altered 2-28 ity of mental mental 00:00: [place] status) status) 00 Medical Branch LV (left LV (left Disease Active Unive rs ventricula ventricula 2-08 it y of r) mural r) mural 00:00: [place] thrombus thrombus 00 Medica l Branch Chronic Chronic Disease Active Univers combined combined 2-08 ity of systolic systolic 00:00: [place] and and 00 Medical diastolic diastolic Bran ch congestive congestive heart heart failure failure Hypervolem Hypervolem Disease Active U nivers ia ia 2-07 ity of 00:00: [place] 00 Medical Branch Pulmonary Pulmonary Disease Active Uni vers hypertensi hypertensi 8-16 it y of on on 00:00: [place] 00 Medical Branch IRVING IRVING Disease Active Univers (dyspnea (dyspnea 8-15 ity of on on 00:00: [place] exertion) exertion) 00 Medi uriel Branch Pleural Pleural Disease Active Univers effusion, effusion, 8-13 [place] of bilateral bilateral 00:[place] CHF CHF Disease Active Univers (congestiv (congestiv 5-05 it y of e heart e heart 00:00: [place] failure), failure), 00 Medi uriel NYHA class NYHA class Br anch I, acute I, acute on on chronic, chronic, combined combined Hypotensio Hypotensio Disease Active U nivers n n 4-15 ity of 00:00: [place] 00 Medical Branch Sepsis Sepsis Disease Active Univers 4-14 ity of 00:00: [place] [facility] Right leg Right leg Disease [...] chronic 3-08 ity of diastolic diastolic 00:00: [place] congestive congestive 00 Me dical heart heart Branch failure failure PAD PAD Disease Active Univers (periphera (periphera 3-08 it y of l artery l artery 00:00: [place] disease) disease) 00 Medica l Branch Anemia Anemia Disease Active Univers 3-08 ity of 00:00: [place] [facility] Obesity Obesity Disease Active Univers (BMI (BMI 2-23 ity of 30-39.9) 30-39.9) 00:00: [place] [facility] Diabetic Diabetic Disease Active Unive rs foot foot 2-19 ity of infection infection 00:00[place] Osteomyeli Osteomyeli Disease Active 2019-05 U nivers tis tis 0-26 ity of 00:00: [place] 00 Medical Branch Preop Preop Disease Active 2019-05 Univers cardiovasc cardiovasc 0-26 it y of ular exam ular exam 00:00[place] KALYN (acute KALYN (acute Disease Active 2019-05 U nivers kidney kidney 0-26 ity of injury) injury) 00:00: [place] 00 Medical Branch Left foot Left foot Disease Active 2019-05 Overview: Univers pain pain 0-25 Formattin ity of 00:00: g of this [place] 00 note Medical might be Branch different from the original. Added automatic ally from request for surgery [id number] Troponin I Troponin I Disease Active 2020- U nivers above above 9-16 ity of reference reference 00:00[place] range range 00 [place] Pleural Pleural Disease Active 2019- Univers effusion effusion 9-15 ity of 00:00: [place] 00 Medical Branch Elevated Elevated Disease Active Unive rs brain brain 9-15 ity of natriureti natriureti 00:[place] c peptide c peptide 00 Medi uriel (BNP) (BNP) Branch level level Chest pain Chest pain Disease Active 2019- U nivers in adult in adult 9-14 ity of 00:00: [place] [facility] Cellulitis Cellulitis Disease Active 2019- U nivers of left of left 6-27 ity of foot foot 00:00: [place] 00 Medical Branch Pacemaker Pacemaker Disease Active 2019- Uni vers 3-18 ity of 00:00: [place] 00 Medical Branch PAF PAF Disease Active 2019- Univers (paroxysma (paroxysma 3-18 it y of l atrial l atrial 00:00: [place] fibrillati fibrillati 00 Me dical on) on) Branch Abdominal Abdominal Disease Active 2019- Uni vers pain pain 2-27 ity of 00:00: [place] 00 Medical Branch Pacemaker Pacemaker Disease Active 2019- Uni vers malfunctio malfunctio 2-04 it y of n n 00:00: [place] 00 Medical Branch Cellulitis Cellulitis Disease Active 2019- U nivers 1-19 ity of 00:00: [place] 00 Medical Branch Arterioven Arterioven Disease Active 2019- U nivers ous ous 9-25 ity of fistula of fistula of 00:00: [place] right right 00 Medical femoral femoral Branch vessels vessels NSTEMI NSTEMI Disease Active Univers (non-ST (non-ST 9-05 ity of elevated elevated 00:00: [place] myocardial myocardial 00 Me dical infarction infarction Br anch ) ) Coronary Coronary Disease Active Unive rs artery artery 8-29 ity of disease disease 00:00: [place] involving involving 00 Medi uriel [place] Branch coronary coronary artery of artery of [place] heart with heart with angina angina pectoris pectoris Type 2 Type 2 Disease Active 2019- Univers diabetes diabetes 8-29 ity of mellitus mellitus 00:00: [place] without without 00 Medical complicati complicati Br anch on, on, without without long-term long-term current current use of use of insulin insulin Essential Essential Disease Active Uni vers hypertensi hypertensi 01-17 it y of on on 00:00: [place] [id number] Medical Branch Other Other Disease Active Univers hyperlipid hyperlipid 01-17 it y of emia emia 00:00: [place] [facility] Stroke Stroke Disease Active Univers 5-12 ity of 00:00: [place] [facility] Left-sided Left-sided Disease Active U nivers weakness weakness 5- ity of 00:00: [place] [facility] Left sided Left sided Disease Active U nivers numbness numbness - ity of 00:00: [place] [facility] S/P admn S/P admn Disease Active Unive rs tPA in tPA in -11 ity of diff fac diff fac 00:00: [place] w/n last w/n last 00 Medica l 24 hr bef 24 hr bef Bran ch adm to adm to crnt fac crnt fac Unstable Unstable Disease Active Unive rs angina angina 4-10 ity of 00:00: [place] [facility] Atypical Atypical Disease Active Unive rs chest pain chest pain 2-22 it y of 00:00: [place] [facility] Chest pain Chest pain Problem [facility] Coronary CAD Problem Active [facility] artery (coronary [facility] disease artery Patient disease) [facility] Center Diabetic DKA Problem Active [facility] ketoacidos (diabetic Esme es is ketoacidos Patien t es) Medical [facility] Hyperglyce Hyperglyce Problem Active [facility] bambi bambi [facility] Hypertensi Hypertensi Problem Active [facility] on on [facility] Patient [facility] Pancreatit Pancreatit Problem Active [facility] is is [facility] Uncontroll Uncontroll Problem Active [facility] ed ed [facility] diabetes diabetes Patien t mellitus mellitus Medica l Center Allergies, Adverse Reactions, Alerts Allergy Allergy Status Severity Reaction(s) Onset Inactive Treating Comm ents Source Name Type Date Date Clinician No Known DA Active U [facility]ie 3-22 [place] [facility] 00:[facility]: d 00 [facility] No Known DA Active U 2020-0 [facility] Allergie 3-22 [place] [facility] 00:00: d 00 [facility] No Known DA Active U 2017- [facility] Allergie 2-31 Clear s 00:00: Mej[place] 00 [facility] No Known DA Active U 2017- [facility] Allergie 2-31 Clear s 00:00: Meija 00 [facility] No Known DA Active U 2018-0 [facility] Allergie 3-26 [place] 00:[facility]: e 00 [facility] NO KNOWN Drug Active Univers ALLERGIE Class ity of S [place] [facility] Social History Social Habit Start Date Stop Date Quantity Comments Source History of Cigarette Smoker Universi ty of tobacco use [place] [facility] History SDOH University o f Alcohol Frequency [place] M edical Branch History SDOH University o f Alcohol Std [place] Medical Drinks Branch History SDOH University o f Alcohol Binge [place] Medic al Branch Exposure to 2021-10-30 2021-11-09 Unable to assess Univers ity of SARS-CoV-2 00:00:00 15:13:[address] [facility] (event) Branch Alcohol intake 2021-11-05 2021-11-05 1.71 /d University of 00:00:00 00:00:[address] [facility] Branch Tobacco Comment 2021-11-03 2021-11-03 quit 15 years ago Un iversity of 00:00:00 00:00:[address] [facility] Branch Education 2021-10-27 2021-10-27 9 University of 00:00:00 00:00:00 [place] [facility] History SDOH 2020-03-16 2020-03-16 3 University o f Financial 00:00:00 00:00:00 [place] [facility] History SDOH Food 2020-03-16 2020-03-16 2 Univers ity of Worry 00:00:00 00:00:00 [place] [facility] History SDOH Food 2020-03-16 2020-03-16 2 Univers ity of Scarcity 00:00:00 00:00:00 [place] [facility] History SDOH 2020-03-16 2020-03-16 1 University o f Transport Med 00:00:00 00:00:00 [place] Medic al Branch History SDOH 2020-03-16 2020-03-16 1 University o f Transport Non-Med 00:00:00 00:00:00 [place] M edical Branch Alcohol Comment 2019-07-18 2019-07-18 quit drinking Malgorzata sity of 00:00:00 00:00:00 2013 but drank [facility] heavily before Branch this Tobacco use and 2018-07-14 2018-07-14 Never used Universit y of exposure 00:00:00 00:00:00 [facility] Sex Ass[birth year] At [birth year] Universit y of 00:00:00 00:00:00 [place] [facility] Smoking Status Start Date Stop Date Source Former smoker 2018-07-14 00:00:00 2018-07-14 [facility] Medications Ordered Filled Start Stop Current Ordering Indication Dosage Frequency Signature Comments Components Source Medication Medication Date Date Medication? Clinician (SIG) Name Name HYDROcodone 2021- No 1{tbl} 1 tablet, Univers -acetaminop 11-09 Oral, ity of hen (NORCO) 22:30: 21:37 [place]CE, 1 [place] 10-325 mg 00 :00 dose, On Medica l tablet Mon Branch tablet 11/09/21 at 1730, Routine ketorolac 2021- No 15mg 15 mg, Unive rs (TORADOL) 11-09 Slow IV ity of injection 22:00: 21:05 Push, [place] 15 mg 00 :00 ONCE, 1 Medical dose, On Branch 11/09/21 at 1700, PIERRE HYDROcodone 2021- No 1{tbl} 1 tablet, Univers -acetaminop 11-05 Oral, ity of hen (NORCO) 07:15: 07:51 ONCE, 1 [place] 10-325 mg 00 :00 dose, On Medica l tablet Mon Branch tablet 11/05/21 at 0215, Routine ketorolac 2021-2021- No 30mg 30 mg, Unive rs (TORADOL) 11-05 Slow IV ity of injection 07:15: 07:49 Push, [place] 30 mg 00 :00 ONCE, 1 Medical dose, On Branch 11/05/21 at 0215, Routine gabapentin 2021-2021- No 300mg 300 mg, Un charley (NEURONTIN) 6-17 06-17 Oral, ity of capsule 300 07:15: 06:58 ONCE, 1 [place] mg 00 :00 dose, On Medical Fri Branch 11/05/21 at 0215, PIERRE dexamethaso 2021- No 10mg 10 mg, Uni vers ne sod phos 11-05 Slow IV ity of PF 07:15: 06:56 Push, [place] injection 00 :00 ONCE, 1 Medical 10 mg dose, On Branch 11/05/21 at 0215, 1 mL gabapentin 2021- Yes [id number] 300mg Take 1 Univers 300 mg 11-05 capsule by ity of capsule 00:00: 04:59 mouth 3 [place] 00 :00 (three) Medical times Branch daily for 10 days. gabapentin 2021- Yes [id number] 300mg Take 1 Univers 300 mg 11-05 capsule by ity of capsule 00:00: 04:59 mouth 3 [place] 00 :00 (three) Medical times Branch daily for 10 days. aspirin 81 2021- Yes [id number] 81mg Take 1 Univers mg chewable 6-16 07-17 tablet by it y of tablet 00:00: 04:59 mouth [place] 00 :00 daily for Medical 30 days. Branch aspirin 81 2021- Yes [id number] 81mg Take 1 Univers mg chewable 6-16 07-17 tablet by it y of tablet 00:00: 04:59 mouth [place] 00 :00 daily for Medical 30 days. Branch aspirin 81 2021- Yes [id number] 81mg Take 1 Univers mg chewable 6-16 07-17 tablet by it y of tablet 00:00: 04:59 mouth [place] 00 :00 daily for Medical 30 days. Branch proMETHazin Yes [id number] 25mg Take 1 Univers e 25 mg 6-03 tablet by ity of tablet 00:00: mouth [place] 00 every 6 Medical (six) Branch hours as needed for Nausea and Vomiting (N/V). proMETHazin Yes [id number] 25mg Take 1 Univers e 25 mg 6-03 tablet by ity of tablet 00:00: mouth [place] 00 every 6 Medical (six) Branch hours as needed for Nausea and Vomiting (N/V). proMETHazin Yes [id number] 25mg Take 1 Univers e 25 mg 6-03 tablet by ity of tablet 00:00: mouth [place] 00 every 6 Medical (six) Branch hours as needed for Nausea and Vomiting (N/V). fenofibrate 2021- Yes [id number] 134mg Take 1 Univers micronized -19 12- capsule by it y of 134 mg 00:00: 04:59 mouth [place] capsule 00 :00 daily for Medical 30 days. Branch lisinopriL 2021- Yes [id number] 2.5mg Take 1 Univers 2.5 mg -19 12- tablet by ity of tablet 00:00: 04:59 mouth [place] 00 :00 daily for Medical 30 days. Branch fenofibrate 2021- Yes [id number] 134mg Take 1 Univers micronized -19 12- capsule by it y of 134 mg 00:00: 04:59 mouth [place] capsule 00 :00 daily for Medical 30 days. Branch lisinopriL 2021- Yes [id number] 2.5mg Take 1 Univers 2.5 mg -19 12- tablet by ity of tablet 00:00: 04:59 mouth [place] 00 :00 daily for Medical 30 days. Branch fenofibrate 2021- Yes [id number] 134mg Take 1 Univers micronized -19 12- capsule by it y of 134 mg 00:00: 04:59 mouth [place] capsule 00 :00 daily for Medical 30 days. Branch lisinopriL 2021- Yes [id number] 2.5mg Take 1 Univers 2.5 mg -19 12- tablet by ity of tablet 00:00: 04:59 mouth [place] 00 :00 daily for Medical 30 days. Branch furosemide 2021- Yes [id number] 40mg Take 1 Univers 40 mg 5-30 06-30 tablet by ity of tablet 00:00: 04:59 mouth [place] 00 :00 every Medical morning Branch and evening for 30 days. apixaban 5 2021- Yes [id number] 5mg Take 1 Univ ers mg tablet 5-30 06-30 tablet by ity of 00:00: 04:59 mouth 2 [place] 00 :00 (two) Medical times Branch daily for 30 days. Indication s: atrial fibrillati on calcitrioL 2021- Yes [id number] .5ug Take 1 Univers 0.5 mcg 5-30 06-30 capsule by ity o f capsule 00:00: 04:59 mouth [place] 00 :00 daily for Medical 30 days. Branch insulin NPH 2021- Yes [id number] 5U inject 5 Univers (HUMULIN N 5-30 06-30 Units ity of NPH U-100 00:00: 04:59 [place] INSULIN) 00 :00 skin every Medic al 100 unit/mL evening Branc h injection for 30 days. atorvastati 2021- Yes [id number] 40mg Take 1 Univers n 40 mg 5-30 -30 tablet by ity of tablet 00:00: 04:59 mouth at [place] 00 :00 bedtime Medical for 30 Branch days. carvediloL 2021- Yes [id number] 3.125mg Take 1 Univers 3.125 mg 5-30 06-30 tablet by ity o f tablet 00:00: 04:59 mouth 2 [place] 00 :00 (two) Medical times [place] daily with meals for 30 days. furosemide 2021- Yes [id number] 40mg Take 1 Univers 40 mg 5-30 06-30 tablet by ity of tablet 00:00: 04:59 mouth [place] 00 :00 every Medical morning Branch and evening for 30 days. apixaban 5 2021- Yes [id number] 5mg Take 1 Univ ers mg tablet 5-30 06-30 tablet by ity of 00:00: 04:59 mouth 2 [place] 00 :00 (two) Medical times [place] daily for 30 days. Indication s: atrial fibrillati on calcitrioL 2021- Yes [id number] .5ug Take 1 Univers 0.5 mcg 5-30 06-30 capsule by ity o f capsule 00:00: 04:59 mouth [place] 00 :00 daily for Medical 30 days. Branch insulin NPH 2021- Yes [id number] 5U inject 5 Univers (HUMULIN N 5-30 06-30 Units ity of NPH U-100 00:00: 04:59 [place] INSULIN) 00 :00 skin every Medic al 100 unit/mL evening Branc h injection for 30 days. atorvastati 2021- Yes [id number] 40mg Take 1 Univers n 40 mg 5-30 -30 tablet by ity of tablet 00:00: 04:59 mouth at [place] 00 :00 bedtime Medical for 30 Branch days. carvediloL 2021- Yes [id number] 3.125mg Take 1 Univers 3.125 mg 5-30 -30 tablet by ity o f tablet 00:00: 04:59 mouth 2 [place] 00 :00 (two) Medical times Branch daily with meals for 30 days. furosemide 2021- Yes [id number] 40mg Take 1 Univers 40 mg 5-30 -30 tablet by ity of tablet 00:00: 04:59 mouth [place] 00 :00 every Medical morning Branch and evening for 30 days. apixaban 5 2021- Yes [id number] 5mg Take 1 Univ ers mg tablet 5-30 -30 tablet by ity of 00:00: 04:59 mouth 2 [place] 00 :00 (two) Medical times Branch daily for 30 days. Indication s: atrial fibrillati on calcitrioL 2021- Yes [id number] .5ug Take 1 Univers 0.5 mcg 5-30 -30 capsule by ity o f capsule 00:00: 04:59 mouth [place] 00 :00 daily for Medical 30 days. Branch insulin NPH 2021- Yes [id number] 5U inject 5 Univers (HUMULIN N 5-30 06-30 Units ity of NPH U-100 00:00: 04:59 [place] INSULIN) 00 :00 skin every Medic al 100 unit/mL evening Branc h injection for 30 days. atorvastati 2021- Yes [id number] 40mg Take 1 Univers n 40 mg 5-30 -30 tablet by ity of tablet 00:00: 04:59 mouth at [place] 00 :00 bedtime Medical for 30 Branch days. carvediloL 2021- Yes [id number] 3.125mg Take 1 Univers 3.125 mg 5-30 -30 tablet by ity o f tablet 00:00: 04:59 mouth 2 [place] 00 :00 (two) Medical times Branch daily with meals for 30 days. metFORMIN Yes [id number] 500mg Take 1 U nivers 500 mg 3-02 tablet by ity of tablet 00:00: mouth 2 [place] 00 (two) Medical times Branch daily with meals. metFORMIN 0 Yes [id number] 500mg Take 1 U nivers 500 mg 3-02 tablet by ity of tablet 00:00: mouth 2 [place] (two) Medical times Branch daily with meals. metFORMIN 0 Yes [id number] 500mg Take 1 U nivers 500 mg 3-02 tablet by ity of tablet 00:00: mouth 2 [place] (two) Medical times Branch daily with meals. albuterol Yes [id number] 2{puff} Inhale 2 Univers 90 2-21 Puffs 2 ity of mcg/actuati 00:00: (two) [place] on inhaler 00 times Medical daily. Branch collagenase Yes [id number] Use as Univers 250 2-21 directed ity of unit/gram 00:00: by office Juan J as ointment 00 Medical Branch cyclobenzap Yes [id number] 10mg Take 1 Univers rine 10 mg 2-21 tablet by ity of tablet 00:00: mouth [place] (two) Medical times Branch daily as needed for Muscle Spasms. dextrometho Yes [id number] 10mL Take 10 mL Univers rphan-guaif 2-21 by mouth ity of enesin 00:00: every 6 [place] 10-100 mg/5 00 (six) Medical mL solution hours as Bran ch needed for Cough. HYDROcodone Yes 1{tbl} Take 1 Un charley -acetaminop 2-21 tablet by ity of hen 5-325 00:00: mouth [place] mg tablet 00 every 6 Medical (six) Branch hours as needed for Pain (scale 4-6). melatonin 3 0 Yes [id number] 3mg Take 1 Univers mg tablet 2-21 tablet by ity o f 00:00: mouth at [place] 00 bedtime. Medical Branch ondansetron 0 Yes [id number] 4mg Take 1 Univers 4 mg 2-21 tablet by ity of disintegrat 00:00: mouth [place] ing tablet 00 every 8 Medica l (eight) Branch hours as needed for Nausea and Vomiting (N/V). albuterol 0 Yes [id number] 2{puff} Inhale 2 Univers 90 2-21 Puffs 2 ity of mcg/actuati 00:00: (two) [place] on inhaler 00 times Medical daily. Branch collagenase Yes [id number] Use as Univers 250 2-21 directed ity of unit/gram 00:00: by office Juan J as ointment 00 Medical Branch cyclobenzap Yes [id number] 10mg Take 1 Univers rine 10 mg 2-21 tablet by ity of tablet 00:00: mouth 2 [place] 00 (two) Medical times Branch daily as needed for Muscle Spasms. dextrometho Yes [id number] 10mL Take 10 mL Univers rphan-guaif 2-21 by mouth ity of enesin 00:00: every 6 [place] 10-100 mg/5 00 (six) Medical mL solution hours as Bran ch needed for Cough. HYDROcodone Yes 1{tbl} Take 1 Un charley -acetaminop 2-21 tablet by ity of hen 5-325 00:00: mouth [place] mg tablet 00 every 6 Medical (six) Branch hours as needed for Pain (scale 4-6). melatonin 3 Yes [id number] 3mg Take 1 Univers mg tablet 2-21 tablet by ity o f 00:00: mouth at [place] 00 bedtime. Medical Branch ondansetron 0 Yes [id number] 4mg Take 1 Univers 4 mg 2-21 tablet by ity of disintegrat 00:00: mouth [place] ing tablet 00 every 8 Medica l (eight) Branch hours as needed for Nausea and Vomiting (N/V). albuterol Yes [id number] 2{puff} Inhale 2 Univers 90 2-21 Puffs 2 ity of mcg/actuati 00:00: (two) [place] on inhaler 00 times Medical daily. Branch collagenase Yes [id number] Use as Univers 250 2-21 directed ity of unit/gram 00:00: by office Juan J as ointment 00 Medical Branch cyclobenzap Yes [id number] 10mg Take 1 Univers rine 10 mg 2-21 tablet by ity of tablet 00:00: mouth 2 [place] 00 (two) Medical times Branch daily as needed for Muscle Spasms. dextrometho 0 Yes [id number] 10mL Take 10 mL Univers rphan-guaif 2-21 by mouth ity of enesin 00:00: every 6 [place] 10-100 mg/5 00 (six) Medical mL solution hours as Bran ch needed for Cough. HYDROcodone Yes 1{tbl} Take 1 Un charley -acetaminop 2-21 tablet by ity of hen 5-325 00:00: mouth [place] mg tablet 00 every 6 Medical (six) Branch hours as needed for Pain (scale 4-6). melatonin 3 Yes [id number] 3mg Take 1 Univers mg tablet 2-21 tablet by ity o f 00:00: mouth at [place] 00 bedtime. Medical Branch ondansetron Yes [id number] 4mg Take 1 Univers 4 mg 2-21 tablet by ity of disintegrat 00:00: mouth [place] ing tablet 00 every 8 Medica l (eight) Branch hours as needed for Nausea and Vomiting (N/V). Aspirin 81 Aspirin 81 2018- No Alexis [address] [facility] [address] Mg Tab.chew Mg Tab.chew 10-26 Brooke Frankel 00:00: 00:00 Patient 00 :00 [facility] Diflunisal Diflunisal 2015- No Todd Wynn [address] [facility] (Dolobid) (Dolobid) 01-17[facility] 500 Mg 500 Mg 00:00: 00:00 Md Patient Tablet, 500 Tablet, 500 00 :00 M edical Mg Oral Mg Oral [facility] Ondansetron Ondansetron 2015- No Todd Wynn [address] [facility] Hcl Hcl 01-17 [place] [facility] (Zofran*) 4 (Zofran*) 4 00:00: 00:00 needed for Patient Mg Tablet, Mg Tablet, 00 :00 Nausea M edical 4 Mg 4 Mg [place] Sublingual Sublingual Clopidogrel Clopidogrel Yes [address] [facility] [address] Bisulfate Bisulfate [facility] (Plavix) 75 (Plavix) 75 P atient Mg Tablet Mg Tablet Medic al Center Cyclobenzap Cyclobenzap Yes [address] [facility] [address] rine Hcl rine Hcl Times A Luke [facility] (Flexeril) (Flexeril) Day as P atient 5 Mg Tablet 5 Mg Tablet needed for Medical Muscle Center Spasms Doxazosin Doxazosin Yes [address] [facility] [address] Mesylate Mesylate [facility] (Cardura) 8 (Cardura) 8 P atient Mg Tablet Mg Tablet Medic al Center Fenofibrate Fenofibrate Yes [address] [facility] 200 Mg Cap 200 Mg Cap Esme es Patient Medical Center Gabapentin Gabapentin Yes [address] [facility] 800 Mg 800 Mg Hours [facility] Tablet Tablet Patient Medical Center Glipizide 5 Glipizide 5 Yes [address] [facility] Mg Tablet Mg Tablet Day [facility] Hydrocodone Hydrocodone Yes [address] [facility] Bit/Acetami Bit/Acetami Hours as [facility] nophen nophen needed for [place] [facility] ([place] [facility] 10-325 10-325 Center Tablet) 1 Tablet) 1 Each Tablet Each Tablet Insulin Insulin Yes [address] [facility] Regular, Regular, Times [facility] Human Human Daily With Patient (Humulin R) (Humulin R) Meals Medical 100 Unit/1 100 Unit/[address] Ml Vial Ml Vial Isosorbide Isosorbide Yes [address] Mononitrate Mononitrate L ukes (Isosorbide (Isosorbide P atient Mononitrate Mononitrate M edical Er) 30 Mg Er) 30 Mg Cente r Tab.er.24h Tab.er.24h Levothyroxi Levothyroxi Yes [address] ne Sodium ne Sodium [facility] 50 Mcg 50 Mcg Patient Tablet Tablet Medical Center Lisinopril Lisinopril Yes 2.[address] 2.5 Mg 2.5 Mg [facility] Tablet Tablet Patient [facility] Metformin Metformin Yes [address] [facility] (Glucophage (Glucophage P atient ) 1,000 Mg ) 1,000 Mg Med ical Tablet Tablet Center Methadone Methadone Yes 5 Every [address] [facility] 5 Mg Hcl 5 Mg Hours [facility] Tablet Tablet [facility] Metoprolol Metoprolol Yes [address] Tartrate 25 Tartrate 25 L [facility] Mg Tablet Mg Tablet [facility] Nitroglycer Nitroglycer Yes As Needed [facility] (Nitrostat) (Nitrostat) P atient 0.4 Mg 0.4 Mg Medical Tab.subl Tab.subl Center Omeprazole Omeprazole Yes [address] 20 Mg 20 Mg [facility] Capsule. Capsule.dr John [facility] Simvastatin Simvastatin Yes [address] 80 Mg 80 Mg [facility] Tablet Tablet [facility] Tamsulosin Tamsulosin Yes Daily [facility] Hcl 0.4 Mg Hcl 0.4 Mg Esme es Cap.er.24h Cap.er.24h Pat [facility] Tramadol Tramadol Yes [address] [facility] Hcl Hcl Daily as [facility] (Ultram) 50 (Ultram) 50 needed for Patient Mg Tablet Mg Tablet Pain Medic al Center Venlafaxine Venlafaxine Yes [address] [facility] 75 Mg Hcl 75 Mg [facility] Tab Tab [facility] Albuterol Albuterol 2017- No [address] [facility] Sulfate Sulfate 10-15 Day as [facility] (Proair Hfa (Proair Hfa 00:00 needed for Patient Inhaler*) Inhaler*) :00 Shortness Medical 8.5 Gm Inh, 8.5 Gm Inh, Of Breath Center 1 Inh 1 Inh Inhalation Inhalation Dicyclomine Dicyclomine 2016- No [address] Hcl 20 Mg Hcl 20 Mg 10-15 Daily Esme es Tablet, 20 Tablet, 20 00:00 Navid tietangela Mg Oral Mg Oral :00 Medical Center Insulin Insulin 2017- No 40 7AM &Hs [facility] Human Nph Human Nph 10-15 Luke [facility] (Humulin N) (Humulin N) 00:00 Patient 100 100 :00 Medical Units/Ml Units/Ml Center Ml, 40 Ml, 40 Sub-Q Sub-Q Naloxone Naloxone 2017- No .4 As Needed [facility] Hcl 0.4 Hcl 0.4 10-15 for [facility] Mg/1 Ml Mg/1 Ml 00:00 Oversedati Navid blanco Disp.syrin, Disp.syrin, :00 on M edical 0.4 Mg 0.4 Mg Center Intraven Intraven Venlafaxine Venlafaxine 2016- No 37.[address] Hcl 75 Mg Hcl 75 Mg 10-15 Luke s Tab, 37.5 Tab, 37.5 00:00 Manjula ent Mg Oral Mg Oral :00 Medical Center Clindamycin Clindamycin 2016- No [address] Hcl 150 Mg Hcl 150 Mg 08-16 Times A [facility] Capsule, Capsule, 00:00 Day Patien t 300 Mg Oral 300 Mg Oral :00 M edical Center Ibuprofen Ibuprofen 2017- No [address] 600 Mg 600 Mg 08-16 Times A [facility] Tablet, 800 Tablet, 800 00:00 Day as Patient Mg Oral Mg Oral :00 needed for Med ical Mild Pain Center (1-3) Ranolazine Ranolazine [address] [facility] (Ranexa) (Ranexa) 08-16 Day [facility] 500 Mg 500 Mg 00:00 Patient Tabsr, 1000 Tabsr, 1000 :00 M edical Mg Oral Mg Oral Center Insulin Insulin [address] [facility] Human Nph Human Nph 04-20 Luke s (Humulin N) (Humulin N) 00:00 Patient 100 100 :00 Medical Units/Ml Units/Ml Center Ml, 32 Ml, 32 Units Units Subcutaneou Subcutaneou sly sly Insulin Insulin [address] Regular, Regular, 04-20 Times A Esme es Human Human 00:00 Day Patient (Humulin R) (Humulin R) :00 M edical 100 Unit/1 100 Unit/[address] Ml Vial, 45 Ml Vial, 45 Units Units Subcutaneou Subcutaneou sly sly Ranolazine Ranolazine [address] [facility] (Ranexa) (Ranexa) 04-20 Day [facility] 500 Mg 500 Mg 00:00 Patient Tabsr, 1000 Tabsr, 1000 :00 M edical Mg Oral Mg Oral Center Insulin Insulin Before [facility] Regular, Regular, 03-22 Meals [facility] Human Human 00:00 Patient (Humulin R) (Humulin R) :00 M edical 100 Unit/1 100 Unit/[address] Ml Vial, 20 Ml Vial, 20 Units Sub-Q Units Sub-Q Omeprazole Omeprazole I St 40 Mg 40 Mg 06-17 [facility] Capsule., Capsule., 00:00 Patient :00 [facility] Insulin Insulin No Twice A [facility] Glargine Glargine 12-11 Day [facility] (Lantus) (Lantus) 00:00 Patien t 100 100 :00 Medical Units/Ml Units/Ml Center Ml, 90 Unit Ml, 90 Unit Subcutaneou Subcutaneou sly sly Insulin Insulin Three [facility] Regular, Regular, 12-11 Times A Esme es Human Human 00:00 Day Patient (Humulin R) (Humulin R) :00 M edical 100 Unit/1 100 Unit/[address] Ml Vial, 25 Ml Vial, 25 Unit Unit Subcutaneou Subcutaneou sly sly Isosorbide Isosorbide 2016- No [address] Mononitrate Mononitrate 05-01 [facility] (Isosorbide (Isosorbide 00:00 Patient Mononitrate Mononitrate :00 M edical Er) 30 Mg Er) 30 Mg Cente r Tab.er.24h, Tab.er.24h, 60 Mg Oral 60 Mg Oral Metoprolol Metoprolol 2015- No [address] Tartrate 25 Tartrate 25 05-01 [facility] Mg Tablet, Mg Tablet, 00:00 Pa tient 25 Mg Oral 25 Mg Oral :[address] [facility] Albuterol Albuterol No [address] Sulfate Sulfate 11-23 as needed Esme es (Ventolin (Ventolin 00:00 for Manjula ent Hfa) 18 Gm Hfa) 18 Gm :00 Shortness Medical Hfa.aer.ad, Hfa.aer.ad, Of Breath Center 90 Mcg 90 Mcg Inhalation Inhalation Dicyclomine Dicyclomine No [address] [facility] Hcl 10 Mg Hcl 10 Mg 11-23 Day Luke s Capsule, 10 Capsule, 10 00:00 Patient Mg Oral Mg Oral :00 [facility] Methocarbam Methocarbam No [address] ol ol 11-23 Times A [facility] (Robaxin) (Robaxin) 00:00 Day Manjula ent 500 Mg 500 Mg :00 Medical Tablet, 500 Tablet, 500 C enter Mg Oral Mg Oral Metronidazo Metronidazo No [address] le 500 Mg le 500 Mg 11-23 Luke s Tablet, 500 Tablet, 500 00:00 Patient Mg Oral Mg Oral :00 [facility] Nitroglycer Nitroglycer 2015- No .[address] in in 11-23 for Chest [facility] (Nitrostat) (Nitrostat) 00:00 Pain Patient 0.4 Mg 0.4 Mg :00 Medical Tab.subl, Tab.subl, Cente r 0.4 Mg 0.4 Mg Sublingual Sublingual Pantoprazol Pantoprazol No [address] e Sodium e Sodium 11-23 [facility] (Protonix) (Protonix) 00:00 Navid tient 40 Mg 40 Mg :00 Medical Tablet., Tablet., Agustin ter 40 Mg Oral 40 Mg Oral Sucralfate Sucralfate 2016- No [address] [facility] 1 Gm 1 Gm 11-23 Day [facility] Tablet, 1 Tablet, 1 00:00 Manjula ent Gm Oral Gm Oral :00 [facility] Temazepam Temazepam [address] (Restoril) (Restoril) 11-23 Theresa kes 30 Mg 30 Mg 00:00 Patient Capsule, 30 Capsule, 30 :00 M edical Mg Oral Mg Oral Center Tizanidine Tizanidine No [address] Hcl 4 Mg Hcl 4 Mg 11-23 [facility] Capsule, 4 Capsule, 4 00:00 Pa tient Mg Oral Mg Oral :00 [facility] Trazodone Trazodone No [address] Hcl 50 Mg Hcl 50 Mg 11-23 Luke s Tablet, 50 Tablet, 50 00:00 Pa tient Mg Oral Mg Oral :00 [facility] Venlafaxine Venlafaxine 2015- No 37.[address] [facility] Hcl 37.5 Mg Hcl 37.5 Mg 11-23 Day [facility] Tablet, Tablet, 00:00 Patient 37.5 Tab 37.5 Tab :00 Medical Oral Oral Center Cyclobenzap Cyclobenzap [address] rine Hcl 10 rine Hcl 10 12-19 Times A [facility] Mg Tablet, Mg Tablet, 00:00 Day Pa tient 10 Mg Oral 10 Mg Oral :00 [facility] ical Mcfarlan Gabapentin Gabapentin No [address] 300 Mg 300 Mg 12-19 Times A [facility] Capsule, Capsule, 00:00 Day Patien t 600 Mg Oral 600 Mg Oral :00 M [facility] Pregabalin Pregabalin No [address] [facility] (Lyrica) (Lyrica) 01-02 Day [facility] 150 Mg 150 Mg 00:00 Patient Capsule, Capsule, :00 Medical 150 Mg Oral 150 Mg Oral C enter Zolpidem Zolpidem [address] Tartrate Tartrate 01-02 [facility] (Ambien) 10 (Ambien) 10 00:00 Patient Mg Tablet, Mg Tablet, :00 Med ical 10 Mg Oral [address] Immunizations Ordered Filled Immunization Date Status Comments [facility] Immunization Name Name Influenza Virus 2021-01-16 Completed Universit [facility] of Vaccine 00:00:00 [facility] Influenza Virus 2021-01-16 Completed Universit y of Vaccine 00:00:00 [facility] Influenza Virus 2021-01-16 Completed Universit y of Vaccine 00:00:00 [facility] SARS-COV-2 COVID-19 2020-10-16 Completed Unive rsity of PEDRO/J&J VACCINE 00:00:00 [facility] SARS-COV-2 COVID-19 2020-10-16 Completed Unive rsity of PEDRO/J&J VACCINE 00:00:00 [facility] SARS-COV-2 COVID-19 2020-10-16 Completed Unive rsity of PEDRO/J&J VACCINE 00:00:00 [facility] Influenza Virus 2020-01-21 Completed Universit y of Vaccine 00:00:00 [facility] Influenza Virus 2020-01-21 Completed Universit y of Vaccine 00:00:00 [facility] Influenza Virus 2020-01-21 Completed Universit y of Vaccine 00:00:00 [facility] Zoster Vaccine 2019-07-17 Completed University of Recombinant 00:00:00 [facility] Zoster Vaccine 2019-07-17 Completed University of Recombinant 00:00:00 [facility] Zoster Vaccine 2019-07-17 Completed University of Recombinant 00:00:00 [facility] Td 2019-03-29 Completed University of 00:00:00 [facility] Td 2019-03-29 Completed University of 00:00:00 [facility] Td 2019-03-29 Completed University of 00:00:00 [facility] Influenza Virus 2018-02-18 Completed Universit y of Vaccine 00:00:00 [facility] Pneumococcal 2018-02-18 Completed University o f Polysaccharide, 00:00:00 [place] [facility] ical PPSV23 (PNEUMOVAX) [place] Influenza Virus 2018-02-18 Completed Universit y of Vaccine 00:00:00 [facility] Pneumococcal 2018-02-18 Completed University o f Polysaccharide, 00:00:00 [place] [facility] ical PPSV23 (PNEUMOVAX) [place] Influenza Virus 2018-02-18 Completed Universit y of Vaccine 00:00:00 [facility] Pneumococcal 2018-02-18 Completed University o f Polysaccharide, 00:00:00 [facility] ical PPSV23 (PNEUMOVAX) [place] Influenza Virus 2008-03-19 Completed Universit y of Vaccine 00:00:00 [facility] Pneumococcal 2008-03-19 Completed University o f Polysaccharide, 00:00:00 [facility] ical PPSV23 (PNEUMOVAX) Branch Influenza Virus 2008-03-19 Completed Universit y of Vaccine 00:00:[address] [facility] Pneumococcal 2008-03-19 Completed University o f Polysaccharide, 00:00:00 [place] [facility] ical PPSV23 (PNEUMOVAX) [facility] Influenza Virus 2008-03-19 Completed Universit y of Vaccine 00:00:00 [facility] Pneumococcal 2008-03-19 Completed University o f Polysaccharide, 00:00:00 [place] [facility] ical PPSV23 (PNEUMOVAX) [facility] Vital Signs Vital Name Observation Time Observation Value Comments Source Systolic blood 2021-11-09 23:00:00 124 mm[Hg] Univer sity of pressure [facility] Diastolic blood 2021-11-09 23:00:00 69 mm[Hg] Unive rsity of [facility] Heart rate 2021-11-09 23:00:00 72 [facility] Respiratory rate 2021-11-09 23:00:00 25 /min [facility] ersity [facility] Oxygen saturation in 2021-11-09 23:00:00 98 /min University of Arterial blood by [place] [employer] Pulse oximetry Branch Body temperature 2021-11-09 20:28:39 37.22 Sandy [facility] ersity [facility] Body height 2021-11-09 20:16:00 170.2 cm [facility] Body weight 2021-11-09 20:16:00 71.215 kg [facility] BMI 2021-11-09 20:16:00 24.59 kg/m2 [facility] Systolic blood 2021-11-05 10:00:00 134 mm[Hg] Univer sity of pressure [facility] Diastolic blood 2021-11-05 10:00:00 78 mm[Hg] Unive rsity of pressure [facility] Heart rate 2021-11-05 10:00:00 81 /min [facility] Body temperature 2021-11-05 08:10:00 36.28 Sandy [facility] ersity of [facility] Respiratory rate 2021-11-05 08:00:00 18 /min Univ ersity [facility] Oxygen saturation in 2021-11-05 08:00:00 99 /min University of Arterial blood by [employer] Pulse oximetry Branch Body height 2021-11-05 05:48:00 170.2 cm [facility] Body weight 2021-11-05 05:48:00 71.215 kg [facility] BMI 2021-11-05 05:48:00 24.59 kg/m2 [facility] Procedures Procedure Date / Time Performing Clinician Source Performed XR CHEST 1 VW 2021-11-09 21:07:00 Troy Ku Mckenzie [facility] POCT GLUCOSE 2021-11-09 20:25:00 [facility] (AUTOM[facility] MAGNESIUM 2021-11-09 20:19:00 Troy Ku Mckenzie [facility] TROPONIN I 2021-11-09 20:19:00 Troy Ku Mckenzie [facility] COMP. METABOLIC PANEL 2021-11-09 20:19:00 Troy Ku [facility] ([id number]) [facility] CBC WITH DIFF 2021-11-09 20:19:00 Troy Ku Mckenzie [facility] N-TERMINAL PRO-BNP 2021-11-09 20:19:00 Troy Ku [facility] XR CHEST 1 VW 2021-11-05 06:38:35 Mihaela Martin [facility] [id number] 2020-08-11 00:00:00 ALDMO [facility] [id number] 2020-08-11 00:00:00 ALDMO [facility] [id number] 2020-08-11 00:00:00 ALDMO [facility] [id number] 2020-08-11 00:00:00 ALDMO [facility] Computed tomography 2017-10-24 00:00:00 ALEXIS COX [facility] Patient [facility] of [facility] angiography of chest 2017-10-23 00:00:00 KHAI WAHL HI [facility] Computed tomography of 2017-10-23 00:00:00 KHAI WAHL CH I [facility] Patient brain [facility] radiopaque contrast Computed tomography of 2017-04-04 00:00:00 JACQUELYN MONTES DE OCA [facility] [place] Patient brain without Medical Center radiopaque contrast Computed tomography of 2017-04-04 00:00:00 JACQUELYN MONTES DE OCA [facility] [place] Patient cervical spine without Medical C enter contrast US abdomen complete 2017-03-08 00:00:00 SCOTT AMIN [facility] Encounters Start End Encounter Admission Attending Care Care Encounter Source Date/Time Date/Time Type Type Clinicians Facility Department ID 2021-06-17 Outpatient [id number] ENCKY MALDONADO [id number] [facility] 10:24:03 [id number] 2021-06-17 Outpatient [id number] ENCKY REF [id number] [facility] 10:22:04 [id number] 2020-08-23 Inpatient HCACL FERNANDO [facility] 17:41:00 [id number] [facility] 2020-04-04 Inpatient Marko, HCAMN HCAMN [facility] 14:40:00 Harshal [id number] [facility] 2019-10-15 Inpatient RADHA Shah, HCAPM ENDO [facility] 15:30:00 Finn [id number] [facility] 2021-11-09 2021-11-09 Emergency X KINGS, K [facility] ERT [id number] Univers 15:15:00 18:32:00 ity [facility] 2021-11-09 2021-11-09 Emergency Kings, K [facility] [id number] Univers 15:15:00 18:32:00 Mckenzie PEREZ [id number] i ty [facility] 4.2.7.2.686 [facility] [id number] [place] [address] Branch 2021-11-05 2021-11-05 Emergency X [facility] ERT [id number] Univers 00:44:00 06:53:00 MIHAELA baugh [facility] 2021-11-05 2021-11-05 Emergency [facility] [id number] Univers 00:44:00 06:53:00 Mihaela PEREZ [id number] ity [facility] 4.2.7.2.686 [facility] [id number] [address] 2021-11-04 2021-11-04 Transition RIVAS Feliciano [id number] Univers 00:00:00 00:00:00 of Jennifer DUQUE [id number] it vashti sanz VUBRUCE 4.2.7.2.686 Noe beckett [id number] [facility] 403 Branch 2021-11-02 2021-11-03 Outpatient X ANIARACHEL [facility] [id number] Univers 22:35:00 15:46:00 OC vashti [facility] 2021-10-27 2021-10-29 Outpatient X DERRICK, [facility] DARIUS [id number] Univers 17:41:00 14:03:00 ANA MARIA vashti [facility] 2021-07-21 2021-07-21 Outpatient Wong_H VFP VFP [id number] [facility] 06:58:00 06:58:00 [id number] Family Practic e 2020-10-30 2020-11-05 Inpatient EM DILIP Carrera [facility] [id number] [facility] 16:50:00 13:52:00 Fede 96922 [facility] 2020-10-31 2020-10-31 Outpatient AMELIA Carrera LABO [id number] [facility] 08:22:00 08:22:00 Fede [id number] [facility] 2020-10-28 2020-10-28 Hospital Radiology [facility] [id number] 08:30:17 23:59:00 Encounter Sera [id number] [place] 4.2.7.2.686 [place] [id number] 2020-10-06 2020-10-06 [facility] [id number] 10:43:51 11:59:29 Visit Gina Perez [id number] [place] 4.2.7.2.686 Professaden [id number] [address] 2020-08-19 2020-08-19 Outpatient PEGGY THORPE OPLA [id number] [facility] 07:13:00 07:13:00 DOES_NOT [id number] [facility] 2020-08-10 2020-08-14 Inpatient ANNEL CareyCL INTE.02 [id number] [facility] 09:09:00 18:56:00 Johnie 117[address] [facility] 2017-10-23 2017-10-27 Discharged Damien COX [facility] [id number] 17:29:00 16:54:00 Inpatient ALEXIS 90 Luke s [facility] 2017-04-03 2017-04-04 Departed ER TAVON, [facility] [id number] 23:17:00 03:53:00 Emergency LAIRD 56 Luke s Room Patient [facility] 2017-03-05 2017-03-09 Discharged ER PHILIP, [facility] [id number] 06:54:00 10:58:00 Inpatient NICHELLE 46 Luke s (obs) [facility] 2017-01-04 2017-01-05 Discharged [facility] [id number] 10:33:00 18:56:00 Inpatient 63 Luke s (obs) [facility] Results Test Description Test Time Test Comments Results Result Comments Source TROPONIN I 2021-11-09 20:57:59 Test Item Value Reference Range Interpretation Comme nts TROPONIN I (test code = 0.017 ng/mL See_Comment [Au tomated message] The [id number]) system which ge nerated this result tra nsmitted reference range : <=0.034. The reference r batsheva was not used to int erpret this result as normal/abnormal . DIANE (test code = DIANE) Reference (Normal) Range (defined by the 99th percentile reference [...] biotin. Lab Interpretation Normal (test code = 98912-7) [id number] 20:54:59 Test Item Value Reference Range Interpretation Comments NT-proBNP (test code 6490 pg/mL See_Comment H [Autom ated = [id number]) message] The system which generated this result transmitted reference range : <=125. The reference range was not used to interpret this result as normal/abnormal . DIANE (test code = DIANE) Biotin has been reported to cause a negative bias, interpret results relative to patient's use of biotin. Lab Interpretation Abnormal (test code = 01860-3) [facility] 20:46:35 Test Item Value Reference Range Interpretation Comments MAGNESIUM (test code = 3895689320) 1.5 mg/dL 1.7-2.4 L Lab Interpretation (test code = Abnormal 90610-5) [facility] ([id number])2021-11-09 20:46:34 Test Item Value Reference Range Interpretation Comments NA (test code = 140 mmol/L 135-145 6395686323) K (test code = 3.9 mmol/L 3.5-5.0 3657422404) CL (test code = 111 mmol/L 98-108 H 6608684133) CO2 TOTAL (test code = 16 mmol/L 23-31 L 4398169504) AGAP (test code = 2-16 8964896916) BUN (test code = 14 mg/dL 7-23 1466112796) GLUCOSE (test code = 189 mg/dL 70-110 H 0615983834) CREATININE (test code = 0.66 mg/dL 0.60-1.25 4918325230) TOTAL BILI (test code = 0.8 mg/dL 0.1-1.3 2818871115) CALCIUM (test code = 8.3 mg/dL 8.6-10.6 L 2349646777) T PROTEIN (test code = 6.5 g/dL 6.3-8.2 6547394437) ALBUMIN (test code = 3.3 g/dL 3.5-5.0 L 2522005848) ALK PHOS (test code = 136 U/L 34-122 H 0352758461) ALTv (test code = 18 U/L 5-50 1742-6) AST(SGOT) (test code = 26 U/L 13-40 6928030764) eGFR (test code = mL/min/1.73m2 0659159036) DIANE (test code = DIANE) Association of [...] tests). Lab Interpretation Abnormal (test code = 84591-3) [facility] WITH [id number] 20:33:30 Test Item Value Reference Range Interpretation Comments WBC (test code = See_Comment [Automated 9454-2) message] The sy stem which generated this result transmitted reference range : 4.20 - 10.70 10*3/?L. The reference range was not used to interpret this result as normal/abnormal . RBC (test code = See_Comment [Automated 454-4) message] The sy stem which generated this result transmitted reference range : 4.26 - 5.52 10*6/?L. The reference range was not used to interpret this result as normal/abnormal . HGB (test code = 13.3 g/dL 12.2-16.4 718-7) HCT (test code = 38.2 % 38.4-49.3 L 4544-3) MCV (test code = 87.2 fL 81.7-95.6 787-2) MCH (test code = 30.4 pg 26.1-32.7 785-6) MCHC (test code = 34.8 g/dL 31.2-35.0 786-4) RDW-SD (test code = 45.4 fL 38.5-51.6 96502-0) RDW-CV (test code = 14.2 % 12.1-15.4 788-0) PLT (test code = See_Comment [Automated 777-3) message] The sy stem which generated this result transmitted reference range : 150 - 328 10*3/ ?L. The reference r batsheva was not used to interpret this result as normal/abnormal . MPV (test code = 9.8 fL 9.8-13.0 08497-3) NRBC/100 WBC (test See_Comment [Automat ed code = 4032066355) message] The system which generated this result transmitted reference range : 0.0 - 10.0 /100 WBCs. The refer ence range was not u sed to interpret th is result as normal/abnormal . NRBC x10^3 (test code <0.01 See_Comment [Auto mated = 6206906526) message] The s ystem which generated this result transmitted reference range : 10*3/?L. The reference range was not used to interpret this result as normal/abnormal . GRAN MAT (NEUT) % 62.3 % (test code = 770-8) IMM GRAN % (test code 0.80 % = 2288608532) LYMPH % (test code = 25.1 % 736-9) MONO % (test code = 6.7 % 5905-5) EOS % (test code = 4.7 % 713-8) BASO % (test code = 0.4 % 706-2) GRAN MAT x10^3(ANC) 4.76 10*3/uL 1.99-6.95 (test code = 1299549690) IMM GRAN x10^3 (test 0.06 10*3/uL 0.00-0.06 code = 1149203331) LYMPH x10^3 (test code 1.92 10*3/uL 1.09-3.23 = 731-0) MONO x10^3 (test code 0.51 10*3/uL 0.36-1.02 = 742-7) EOS x10^3 (test code = 0.36 10*3/uL 0.06-0.53 711-2) BASO x10^3 (test code 0.03 10*3/uL 0.01-0.09 = 704-7) Lab Interpretation Abnormal (test code = 52654-9) [facility]-09 20:27:39 Test Item Value Reference Range Interpretation Comments POCT GLU (test code = 0742519044) 190 mg/dL 70-110 H Lab Interpretation (test code = Abnormal 80288-0) [facility] [id number] 11:52:00 Test Item Value Reference Range Interpretation Comments GLUCOSE BEDSIDE TESTING (test code = 92 mg/dL 70-110 N GLUBED) GLUCOSE BEDSIDE [id number] 08:05:00 Test Item Value Reference Range Interpretation Comments GLUCOSE BEDSIDE TESTING (test code = 62 mg/dL 70-110 L GLUBED) GLUCOSE BEDSIDE [id number] 20:40:00 Test Item Value Reference Range Interpretation Comments GLUCOSE BEDSIDE TESTING (test code 105 mg/dL 70-110 N = GLUBED) GLUCOSE BEDSIDE [id number] 17:02:00 Test Item Value Reference Range Interpretation Comments GLUCOSE BEDSIDE TESTING (test code 128 mg/dL 70-110 H = GLUBED) GLUCOSE BEDSIDE [id number] 16:37:00 Test Item Value Reference Range Interpretation Comments GLUCOSE BEDSIDE TESTING (test code 105 mg/dL 70-110 N = GLUBED) GLUCOSE BEDSIDE [id number] 08:17:00 Test Item Value Reference Range Interpretation Comments GLUCOSE BEDSIDE TESTING (test code = 88 mg/dL 70-110 N GLUBED) GLUCOSE BEDSIDE [id number] 19:45:00 Test Item Value Reference Range Interpretation Comments GLUCOSE BEDSIDE TESTING (test code 115 mg/dL 70-110 H = GLUBED) GLUCOSE BEDSIDE [id number] 18:13:00 Test Item Value Reference Range Interpretation Comments GLUCOSE BEDSIDE TESTING (test code = 74 mg/dL 70-110 N GLUBED) GLUCOSE BEDSIDE [id number] 17:29:00 Test Item Value Reference Range Interpretation Comments GLUCOSE BEDSIDE TESTING (test code = 44 mg/dL 70-110 LL GLUBED) GLUCOSE BEDSIDE [id number] 12:26:00 Test Item Value Reference Range Interpretation Comments GLUCOSE BEDSIDE TESTING (test code = 96 mg/dL 70-110 N GLUBED) GLUCOSE BEDSIDE [id number] 08:21:00 Test Item Value Reference Range Interpretation Comments GLUCOSE BEDSIDE TESTING (test code = 77 mg/dL 70-110 N GLUBED) GLUCOSE BEDSIDE [id number] 20:12:00 Test Item Value Reference Range Interpretation Comments GLUCOSE BEDSIDE TESTING (test code = 91 mg/dL 70-110 N GLUBED) GLUCOSE BEDSIDE [id number] 16:42:00 Test Item Value Reference Range Interpretation Comments GLUCOSE BEDSIDE TESTING (test code 106 mg/dL 70-110 N = GLUBED) GLUCOSE BEDSIDE [id number] 11:49:00 Test Item Value Reference Range Interpretation Comments GLUCOSE BEDSIDE TESTING (test code = 89 mg/dL 70-110 N GLUBED) GLUCOSE BEDSIDE [id number] 08:22:00 Test Item Value Reference Range Interpretation Comments GLUCOSE BEDSIDE TESTING (test code = 68 mg/dL 70-110 L GLUBED) GLUCOSE BEDSIDE [id number] 20:05:00 Test Item Value Reference Range Interpretation Comments GLUCOSE BEDSIDE TESTING (test code 137 mg/dL 70-110 H = GLUBED) GLUCOSE BEDSIDE [id number] 16:42:00 Test Item Value Reference Range Interpretation Comments GLUCOSE BEDSIDE TESTING (test code = 98 mg/dL 70-110 N GLUBED) GLUCOSE BEDSIDE [id number] 11:13:00 Test Item Value Reference Range Interpretation Comments GLUCOSE BEDSIDE TESTING (test code 118 mg/dL 70-110 H = GLUBED) GLUCOSE BEDSIDE [id number] 07:37:00 Test Item Value Reference Range Interpretation Comments GLUCOSE BEDSIDE TESTING (test code 140 mg/dL 70-110 H = GLUBED) COMPREHENSIVE METABOLIC [id number] 06:34:00 Test Item Value Reference Range Interpretation [...] TOTAL (test code = ALKP) CBC W/AUTO [id number] 06:25:00 Test Item Value Reference Range Interpretation [...] DIFF/SCN CRITERIA = MDIFF) - CT ABDOMEN W/[id number] 03:09:00 [facility] 1960 Sex: M Name: FAITH VANCE : 1960 Age/S: 60 / M [address] Unit #: [id number] Loc: [place] [address] Phys: Fede Carrera DO Acct: [id number] Dis Date: Status: ADM IN PHONE #:[phone] Exam Date: 10/31/20201919 FAX #: Reason: NAUSEA, VOMITING, DIARRHEA EXAMS: CPT: [id number] CT ABDOMEN W/CONTRAST 83412 EXAM: - CT ABDOMEN W/CONTRAST LOCATION: H61 CLINICAL HISTORY/INDICATION: NAUSEA, VOMITING, DIARRHEA COMPARISON: KUB 10/31/2020. CT 08/23/2020. TECHNIQUE: Axial CT images of the abdomen were obtained from with IV contrast administration. Coronal and sagittal reformations were reconstructed from the axial data set. Postcontrast images were acquired in the portal venous phase This examination was performed according to our departmental dose optimization program, which includes automated exposure control, adjustment of the mA and/or kV according to patient size, and/or useof iterative reconstruction technique. FINDINGS: LOWER THORAX: Moderate bilateral pleural effusionswith compressive atelectasis in bilateral lower lobes. Pacemaker leads are present. LIVER: No focal hepatic lesions or intrahepatic biliary dilatation. GALLBLADDER/BILIARY SYSTEM: Cholecystectomy. Dilatation of the common bile duct up to 15 mm stable. No intrahepatic biliary dilatation. PANCREAS: Unremarkable. SPLEEN: No splenomegaly or focal lesions. ADRENALS: No adrenal nodules. KIDNEYS/URETERS: Nohydronephrosis, stones, or solid mass lesions. Mild nonspecific bilateral perinephric fat stranding is stable. 2.4 similar cyst in the anterior mid right renal cortex is stable. VESSELS: No AAA. Patentportal vein. LYMPH NODES: No lymphadenopathy. PERITONEUM / RETROPERITONEUM: No free air or fluid. GITRACT: There is enteric contrast present within the stomach, small bowel and colon. There is no small bowel obstruction. There is no PAGE 1 Signed Report (CONTINUED) [facility] 1960 Age/S: 60 / M [id number] Unit #: [id number] Loc: [place] [address] Phys: Dora robertFede Acct: [id number] Dis Date: Status: ADM IN PHONE #: [phone] Exam Date: 10/31/20201919 FAX #: Reason: NAUSEA, VOMITING, DIARRHEA EXAMS: CPT: [id number] CT ABDOMEN W/CONTRAST 04980 <Continued> small bowel wall thickening. The appendix is normal. There is no evidence of colitis no colonic obstruction. Evaluation of the distal sigmoid colon is limited due to streak artifact from barium. EXTERNAL SOFT TISSUE: No abnormalities. BONES: Postsurgical changes of median sternotomy.No acute fractures. Posterior laminectomies at L4-L5 with posterior fusion. Posterior fusion construct consists of a left-sided transpedicular screw at L4, left transarticular screw at L5-S1 and a single vertical erika. There are solid bilateral posterior fusion bone masses. IMPRESSION: 1. No acute findings in the abdomen. No small bowel obstruction or colonic obstruction. 2. Moderate bilateral pleural effusions. at 0309 Reported and signed by: Carmen Encarnacion M.D. CC: Nika Martin MD; Fede Carrera DO Technologist:RT Rohan(Tim) CTDI: DLP: Trnscb Date/Time: 11/01/2020 (308) [email or web address] Orig Print D/T: S: 11/01/2020 (404) PAGE 2Signed ReportGLUCOSE BEDSIDE [id number] 21:34:00 Test Item Value Reference Range Interpretation Comments GLUCOSE BEDSIDE TESTING (test code 161 mg/dL 70-110 H = GLUBED) GLUCOSE BEDSIDE [id number] 17:32:00 Test Item Value Reference Range Interpretation Comments GLUCOSE BEDSIDE TESTING (test code 136 mg/dL 70-110 H = GLUBED) - XR ABDOMEN 1 [id number] 12:44:00 [facility] : 1960 Sex: M Name: FAITH VANCE [facility] : 1960 Age/S: 60 / M [address] Unit #: [id number] Loc: [place] [address] Phys: DorajakyFede cheung DO Acct: [id number] Dis Date: Status: ADM IN PHONE #: [phone] Exam Date: 10/31/2020 1227 FAX #: Reason: Abdominal pain in the lower qudarants EXAMS: CPT: [id number] XR ABDOMEN 1 V 90486 Fluoro Time: DAP (Gy m2): Air Kerma (mGy): CLINICAL INFORMATION: Lower abdominal pain.. Dictation location: T 18 Comparison: 09/09/2010 showed nonspecific bowel gas pattern. Technique: Supine view. Findings. There is barium mixed with stool throughout the length of the n ondilated colon. The bowel gas pattern is otherwise nonspecific with a few air- filled loops of smallbowel also noted. There is postoperative change in the spine. No apparent urologic calcification. IMPRESSION: Residual barium in the colon. Mild air-filled prominence of a few small bowel loops. Overall nonspecific appearance. at 1244 Reported and signed by: Ananth Schmidt M.D. CC: Nika Martin MD; Fede Carrera DO PAGE 1Signed Report Name: FAITH VANCE [facility] : 1960 Age/S: 60 / M [address] Unit #: [id number] Loc: [place] [address] Phys: DebiFede DO Acct: [id number] Dis Date: Status: ADM IN PHONE #: [phone] Exam Date: 10/31/2020 1227 FAX #: Reason: Abdominal pain in the lowerqudarants EXAMS: CPT: [id number] XR ABDOMEN 1 V 26170 Fluoro Time: DAP (Gy m2): Air Kerma (mGy): <C ontinued> Technologist: Cecelia Arias RT(R) Trnscb Date/Time: 10/31/2020 (1201) [email or web address] Orig Print D/T: S: 10/31/2020 (1535) PAGE 2 Signed Report GLUCOSE BEDSIDE [id number] 11:58:00 Test Item Value Reference Range Interpretation Comments GLUCOSE BEDSIDE TESTING (test code 105 mg/dL 70-110 N = GLUBED) GLUCOSE BEDSIDE [id number] 08:01:00 Test Item Value Reference Range Interpretation Comments GLUCOSE BEDSIDE TESTING (test code 106 mg/dL 70-110 N = GLUBED) [id number] 22:46:00 Test Item Value Reference Range Interpretation [...] yby method. Completed by Nursing: NOGLUCOSE BEDSIDE [id number] 21:55:00 Test Item Value Reference Range Interpretation Comments GLUCOSE BEDSIDE TESTING (test code 119 mg/dL 70-110 H = GLUBED) [id number] 19:33:00 Test Item Value Reference Range Interpretation [...] may babak yby method. Completed by Nursing: Denise 2019 nCoV [id number] 18:46:00 Test Item Value Reference Range Interpretation Comments Coronavirus 2018 nCoV Negative Negative Per ma nufacturer, Bedside (test code = negativ e results should [id number]) be treated aspresumptive a nd, if inconsistent wi th clinical signs andsymptoms or necessary for p atient management, el uld betested with a n alternative mol ecular assay. Negative resultsdo not p reclude SARS-CoV-2 infe ction and should not be usedas the sole basis for patient man agement decisions. Nega tive results should be considered in t he context of apat ient's recent exposure s, history, presen ce of clinicalsigns a nd symptoms consis tent with COVID-19. Spec Comments: NNT PRO-BRAIN NATRIURETIC [id number] 15:51:00 Test Item Value Reference Range Interpretation Comments NT PRO-BRAIN NATRIURETIC PEPTI 6079 PG/ML 0-100 H (test code = PROBNP) Completed by Nursing: [id number] 15:51:00 Test Item Value Reference Range Interpretation [...] yby method. Completed by Nursing: NOBASIC METABOLIC [id number] 15:51:00 Test Item Value Reference Range Interpretation [...] Completed by Nursing: NO- XR CHEST 1 [id number] 15:42:00 [facility] : 1960 Sex: M Name: FAITH VANCE [facility] : 1960 Age/S: 60 / M [address] Unit #: [id number] Loc: [place] [address] Phys: Todd Jacobo MD Acct: [id number] Dis Date: Status: PRE ER PHONE #: [phone] Exam Date: 10/30/2020 1522 FAX #: Reason: chest pain EXAMS: CPT: [id number] XR CHEST 1V 65961 Fluoro Time: DAP (Gy m2): Air Kerma [...] pneumonia. There may be small layering effusions. at 1542 Reported and signed by: Lopez Ruiz M.D. CC: Nika Martin MD; Todd Jacobo MD PAGE 1 Signed Report Name: FAITH VANCE : 1960 Age/S: 60 / M [address] Unit #: [id number] Loc: [place] [address] Phys: Todd Jacobo MD Acct: [id number] Dis Date: Status: PRE ER PHONE #: [phone] Exam Date: 10/30/2020 1524 FAX #: Reason: chest pain EXAMS: CPT: [id number] XR CHEST 1 V 95212 Fluoro Time: DAP (Gy m2): Air Kerma (mGy): <Continued> Technologist: Kim Andrews RT(R)(CT) Trnscb Date/Time: 10/30/2020 (1542) t.SDR.[email or web address] Orig Print D/T: S: 10/30/2020 (1364) PAGE 2 Signed ReportCBC W/O [id number] 15:31:00 Test Item Value Reference Range Interpretation [...] code = 9.70 fL 7.0-9.6 H MPV) BASIC METABOLIC [id number] 21:42:00 Test Item Value Reference Range Interpretation [...] 9.6 mg/dL 8.0-10.5 N CA) HEPATIC FUNCTION [id number] 21:42:00 Test Item Value Reference Range Interpretation [...] 114 IUnit/L 20-125 N code = ALKP) [id number] 21:42:00 Test Item Value Reference Range Interpretation Comments LIPASE (test code = LIP) 70 U/L 13-57 H [id number] 21:42:00 Test Item Value Reference Range Interpretation Comments TROPONIN-I 0.026 ng/mL 0.000-0.045 N Negative: <= 0. 045 Positive: (test code = >= 0.046 Correl ation with TROPI) serial results, other cardiac markers andclin ical findings is necessary to determine the clinicalsignifi cance of this result. Results using different metho dologies should not be c omparedto one another as minh titative results may babak y by method. UA RFLX MICR CULT IF [id number] 21:37:00 Test Item Value Reference Range Interpretation [...] INDWELLING CATH (CEDENO)Cath Status: Under 72 hoursPROTHROMBIN [id number] 21:35:00 Test Item Value Reference Range Interpretation Comments PROTHROMBIN TIME 22.4 SECONDS 9.3-12.9 H PATIENT (test code = PTP) INTERNATIONAL NORMAL 2.0 0.8-1.2 H TARGET INR BY RATIO (test code = INDICATIO N Indication INR) INR1. Prophylax is of venous thrombos is 2.0 - 3.0 (orthoped ic surgery), Proph ylaxis of venous throm bosis (other than hig h-risk surgery), Treat ment of Deep Vein Thrombosis/Pulm onary Embolism, Preve ntion of systemic emb olism - Tissue heart va lves, Acute Myocardia l Infarction (to prevent systemic emboli sm), Valvular heart disease, Atrial Fibrillation, Bileaflet mecha nical valve in aortic position.2. Mec hanical prosthetic valv es (high risk), 2. 5 - 3.5 Presence of Lup us Anticoagulant o r Antiphospholipi d Antibodies, Pre vention of systemic emb olism - Acute Myocardia l Infarction (to prevent recurrent infar ct). THROMBOPLASTIN TIME [id number] 21:35:00 Test Item Value Reference Range Interpretation Comments THROMBOPLASTIN TIME 41.7 Seconds 25.0-39.5 H Therape utic Range: PARTIAL (test code = 50.4 - 88.3 Seconds PTT) Effective 09/04/2018 CBC W/AUTO [id number] 21:29:00 Test Item Value Reference Range Interpretation [...] = MDIFF) - CT ABD PELVIS W/O [id number] 20:49:00 [facility] : 1960 Sex: M Name: FAITH V[facility] : 1960 Age/S: 60 / M [address] [place] [address] Unit #: [id number] Loc: [place] [address] Phys: Gisel Eugene [facility] Acct: [id number] Dis Date: Status: REG ERPHONE #: [phone] Exam Date: 08/23/20202024 FAX #: [phone] Reason: DIFFUSE ABDOMINAL PAIN EXAMS: CPT CODE: [id number] CT ABD PELVIS W/O CONT 75140 Clinical indication: Diffuse abdominal pain.Contrast - No IV contrast was given. No [...] of abdominopelvic organs and vasculature. Lack of oral contrast compromisesevaluation of bowel. Thoracic: Small left pleural effusion. [...] midpole renal calculus Decompressed urinary bladder with Cedeno'scatheter in position. Air within the urinary bladder, likely iatrogenic. Gastrointestinal: No bowelobstruction or perienteric inflammation. The appendix is normal. Vascular: The aorta is grossly normal in appearance.. Lymphatics: No enlarged lymph nodes by CT size criteria. Bones/Soft Tissues: Posterior instrumented interbody fusion at L4-L5 levels with laminectomy defects. No obvious fracture or loosening. Small bilateral fat- containing hernias. No ventral hernias. PAGE 1 Signed Report (CONTINUED) Name: FAITH VANCE [facility] : 1960 Age/S: 60 / M [address] [place] [address] Blvd Unit #: [id number] Loc: [place], [place] [address] Phys: Gisel Eugene Acct: [id number] Dis Date: Status: REG ER PHONE #: [phone] Exam Date: 08/23/20202024 FAX #: [phone] Reason: DIFFUSE ABDOMINAL PAIN EXAMS: CPT CODE: [id number] CT ABD PELVIS W/O CONT 01988 <Continued> Peritoneum/Other: No extraluminal air. No extraluminal fluid. IMPRESSION: 1. No acute process in the abdomen and pelvis. 2. Hepatic steatosis. 3. Cholecystectomy. Mild prominence of the proximal common bile duct likely dueto increased capacitance. 4. 2.3 x 2.2 cm simple right interpolar renal cyst. Tiny nonobstructive left renal calculus. No hydronephrosis. 5. Normal appendix. 6. Posterior instrumented fusion from L4 through L5 levels. 7. Small left pleural effusion. at 2048 Reported and signed by: Irene Katz M.D. CC: Alf Hope DO; Nika Martin MD; Gisel Eugene Technologist:Cassandra Anne RT(R)(CT) CTDI: DLP: Trnscb Date/Time:08/23/2020 (2048) [email or web address] Orig Print D/T: S: 08/23/2020 (2051) PAGE 2 Signed ReportBASIC METABOLIC [id number] 07:51:00 Test Item Value Reference Range Interpretation [...] Modifi ed MDRD (test code = GFR) formula. ron kidney disease is defined as eith er kidney damageor GFR <60 mL/min/1.73 m2 for >3 months. [Automated mess age] The system [employer] generated this result transmitted ref erence range: >=60. Th e reference range was not used to int erpret this result as normal/abnormal . CREATININE (test 1.20 mg/dL 0.7-1.3 N code = CREAT) BUN/CREATININE RATIO 22.1 10-20 H (test code = BUN/CREA) CALCIUM (test code = 8.6 mg/dL 8.5-10.1 N CA) [id number] 16:58:00 Test Item Value Reference Range Interpretation Comments GLUBED (test code = 159 MG/DL 70-110 H Performe d by certified GLUBED) depalletizer operator at [facility] [id number] 11:58:00 Test Item Value Reference Range Interpretation Comments GLUBED (test code = 149 MG/DL 70-110 H Performe d by certified GLUBED) depalletizer operator at [facility] BASIC METABOLIC [id number] 08:00:00 Test Item Value Reference Range Interpretation [...] 9.9 mg/dL 8.0-10.5 N CA) CBC W/AUTO [id number] 07:08:00 Test Item Value Reference Range Interpretation [...] DIFF REQUIRED (test code NO = MDIFF) [id number] 05:21:00 Test Item Value Reference Range Interpretation Comments GLUBED (test code = 150 MG/DL 70-110 H Performe d by certified GLUBED) depalletizer operator at [facility] [id number] 21:13:00 Test Item Value Reference Range Interpretation Comments GLUBED (test code = 129 MG/DL 70-110 H Performe d by certified GLUBED) depalletizer operator at [facility] [id number] 16:48:00 Test Item Value Reference Range Interpretation Comments GLUBED (test code = 116 MG/DL 70-110 H Performe d by certified GLUBED) depalletizer operator at [facility] [id number] 12:18:00 Test Item Value Reference Range Interpretation Comments GLUBED (test code = 136 MG/DL 70-110 H Performe d by certified GLUBED) depalletizer operator at [facility] [id number] 12:18:00 Test Item Value Reference Range Interpretation Comments GLUBED (test code = 151 MG/DL 70-110 H Performe d by certified GLUBED) depalletizer operator at [facility] CBC W/AUTO [id number] 07:32:00 Test Item Value Reference Range Interpretation [...] (test code NO = MDIFF) BASIC METABOLIC [id number] 07:29:00 Test Item Value Reference Range Interpretation [...] code = 9.0 mg/dL 8.0-10.5 N CA) [id number] 05:19:00 Test Item Value Reference Range Interpretation Comments GLUBED (test code = 135 MG/DL 70-110 H Performe d by certified GLUBED) depalletizer operator at [facility] [id number] 20:31:00 Test Item Value Reference Range Interpretation Comments GLUBED (test code = 189 MG/DL 70-110 H Performe d by certified GLUBED) depalletizer operator at [facility] [id number] 17:41:00 Test Item Value Reference Range Interpretation Comments GLUBED (test code = 140 MG/DL 70-110 H Performe d by certified GLUBED) depalletizer operator at [facility] - CTA CHEST FOR [id number] 13:48:00 [facility] : 1960 Sex: M Name: FAITH VANCE [facility] : 1960 Age/S: 60 / M [address] [place] [address] Unit #: [id number] Loc: [place] [address] Phys: Gina Gonzalez [employer] ASSOCIATE Acct: [id number] Dis Date: Status: ADM IN PHONE #: [phone] Exam Date: 08/12/2020 09 FAX #: [phone] Reason: CP, elevated D-dimer EXAMS: CPT CODE: [id number] [place] [address] PROCEDURE: CTA CHEST INDICATION: CP, elevated D-dimer; chest [...] -Adjustment of the mA and/or kV according to patient size -Use of iterative reconstruction technique CT Radiation Dose DLP 354.80 mGy-cm LIMITATIONS: Respiratory motion. FINDINGS: PULMONARY ARTERIES: The central pulmonary arteries demonstrate normal enhancement. Motion limited survey of s ubsegmental branches. No discrete intraluminal filling defects identified. MEDIASTINUM: The mediastinal contents are unremarkable. No adenopathy. HEART: The cardiac chambers are unremarkable. Pacemaker/ICD leads. No pericardial effusion. Coronary artery calcifications: Severe. Coronary arterial stentsand evidence for prior CABG. VASCULAR STRUCTURES: Mild scattered calcified plaque thoracic aorta. Noaneurysm. Incomplete opacification without evidence for dissection. Left subclavian arterial stent. The superior vena cava is unremarkable. LUNGS: Small bilateral pleural effusions layering to approximately 5 cm on the left and 4 cm on the right. Partial compressive atelectasis of the lower lobes. Mild interstitial septal thickening. Mild groundglass opacities in dependent portions of the lungs. There is no consolidation. UPPER ABDOMEN: Survey of viscera may be limited by early phase of PAGE 1 Signed Report (CONTINUED) Name: FAITH VANCE [facility] : 1960 Age/S: 60 / M [address] [place] [address] Blvd Unit #: [id number] Loc: [place] [address] Phys: Gina Gonzalez [employer] PR[employer] ASSOCIATE Acct: [id number] Dis Date: Status: ADM IN PHONE #: [phone] Exam Date: 08/12/2020911 FAX #: [phone] Reason: CP, elevated D-dimer EXAMS: CPT CODE: [id number] [place] [address] <Continued> contrast enhancement. No acute abnormality demonstrated. MUSCULOSKELETAL: Healed median sternotomy. No acute skeletal abnormality. IMPRESSION: 1. Negative for pulmonary embolic disease within limitations noted. 2. Atherosclerosis. 3. Coronary arterial calcifications with prior coronary arterial stents and CABG.4. Interstitial edema. No consolidation. 5. Small bilateral pleural effusions. SL: [id number] at 1348 Reported and signed by: Christiano Piña M.D. CC: Johnie Montanez MD; Gina Gonzalez NP; Nika Martin MD Technolo gist:Kate Camacho RT(R)(CT) CTDI: DLP: Trnscb Date/Time: 08/12/2020 (1348) t.[email or web address].CASAL Orig Print D/T: S: 08/12/2020 (6335) PAGE 2 Signed ReportGLUBED 2020-08-12 11:38:00 Test Item Value Reference Range Interpretation Comments GLUBED (test code = 146 MG/DL 70-110 H Performe d by certified GLUBED) depalletizer operator at [facility] CBC W/AUTO [id number] 09:17:00 Test Item Value Reference Range Interpretation [...] (test code NO = MDIFF) BASIC METABOLIC [id number] 08:28:00 Test Item Value Reference Range Interpretation [...] code = 8.3 mg/dL 8.0-10.5 N CA) [id number] 08:28:00 Test Item Value Reference Range Interpretation Comments PHOSPHOROUS (test code = PHOS) 3.6 MG/DL 2.5-4.9 N [id number] 08:28:00 Test Item Value Reference Range Interpretation Comments MAGNESIUM (test code = MAG) 1.94 mg/dL 1.80-2.40 N [id number] 07:16:00 Test Item Value Reference Range Interpretation Comments GLUBED (test code = 170 MG/DL 70-110 H Performe d by certified GLUBED) depalletizer operator at [facility] [id number] 07:16:00 Test Item Value Reference Range Interpretation Comments GLUBED (test code = 137 MG/DL 70-110 H Performe d by certified GLUBED) depalletizer operator at [facility] [id number] 17:01:00 Test Item Value Reference Range Interpretation Comments GLUBED (test code = 88 MG/DL 70-110 N Performe d by certified GLUBED) depalletizer operator at [facility] [id number] 16:56:00 Test Item Value Reference Range Interpretation Comments ACT-ISTAT (test code 186 SEC 74-137 H Perform ed by certified = ACTI) depalletizer operator at [facility] [id number] 15:03:00 Test Item Value Reference Range Interpretation Comments ACT-ISTAT (test code 235 SEC 74-137 H Perform ed by certified = ACTI) depalletizer operator at [facility] [id number] 11:33:00 Test Item Value Reference Range Interpretation Comments GLUBED (test code = 97 MG/DL 70-110 N Performe d by certified GLUBED) depalletizer operator at [facility] [id number] 06:54:00 Test Item Value Reference Range Interpretation Comments GLUBED (test code = 136 MG/DL 70-110 H Performe d by certified GLUBED) depalletizer operator at [facility] BASIC METABOLIC [id number] 06:00:00 Test Item Value Reference Range Interpretation [...] COMMENTS: To be done morning of Heart [id number] 06:00:00 Test Item Value Reference Range Interpretation Comments PHOSPHOROUS (test code = PHOS) 4.1 MG/DL 2.5-4.9 N COMMENTS: To be done morning of Heart [id number] 06:00:00 Test Item Value Reference Range Interpretation Comments MAGNESIUM (test code = MAG) 1.74 mg/dL 1.80-2.40 L COMMENTS: To be done morning of Heart CathTHROMBOPLASTIN TIME [id number] 05:55:00 Test Item Value Reference Range Interpretation Comments THROMBOPLASTIN TIME 37.9 Seconds 25.0-39.5 N Therape utic Range: PARTIAL (test code = 50.4 - 88.3 Seconds PTT) Effective 09/04/2018 CBC W/AUTO [id number] 05:44:00 Test Item Value Reference Range Interpretation [...] COMMENTS: To be done morning of Heart [id number] 05:44:00 Test Item Value Reference Range Interpretation Comments GLUBED (test code = 92 MG/DL 70-110 N Performe d by certified GLUBED) depalletizer operator at [facility] HGBA1C%2020-08-10 17:22:00 Test Item Value Reference Range Interpretation Comments HGBA1C% (test code = HGBA1C%) 6.6 %A1C 4.8-6.0 H [id number] 17:17:00 Test Item Value Reference Range Interpretation Comments GLUBED (test code = 118 MG/DL 70-110 H Performe d by certified GLUBED) depalletizer operator at [facility] TSH REFLEX TO [id number] 15:37:00 Test Item Value Reference Range Interpretation Comments TSH REFLEX TO FT4 (test code = 3.19 IU/mL 0.42-5.47 N TSHREFLEX) [id number] 15:37:00 Test Item Value Reference Range Interpretation Comments TROPONIN-I 0.029 ng/mL 0.000-0.045 N Negative: <= 0. 045 Positive: (test code = >= 0.046 Correl ation with TROPI) serial results, other cardiac markers andclin ical findings is necessary to determine the clinicalsignifi cance of this result. Results using different metho dologies should not be c omparedto one another as minh titative results may babak y by method. COVID 19 Asymptomatic IH [id number] 11:35:00 Test Item Value Reference Range Interpretation Comments COVID 19 Asymptomatic Negative Negative A nega tive result is IH AG (test code = presumpti ve and should COVNONPUIAG) be confirmedwit h an FDA authorized mole cular assay, if neces tiffany forpatient jessie gement.A positive result does not rule out co-inf ections withother patho gens.This test detects afia th viable (live) and non-viable,SARS -CoV, and [...] y tests. COMMENTS: If not done this [id number] 11:31:00 Test Item Value Reference Range Interpretation Comments TROPONIN-I 0.033 ng/mL 0.000-0.045 N Negative: <= 0. 045 Positive: (test code = >= 0.046 Correl ation with TROPI) serial results, other cardiac markers andclin ical findings is necessary to determine the clinicalsignifi cance of this result. Results using different metho dologies should not be c omparedto one another as minh titative results may babak y by method. [id number] 11:28:00 Test Item Value Reference Range Interpretation [...] to interpret this result as normal/abnormal . [id number] 10:48:00 Test Item Value Reference Range Interpretation Comments GLUBED (test code = 158 MG/DL 70-110 H Performe d by certified GLUBED) depalletizer operator at [facility] B-TYPE NATRIURETIC [id number] 08:19:00 Test Item Value Reference Range Interpretation Comments B-TYPE NATRIURETIC PEPTIDE (test 508.0 PG/ML 0-100 H code = BNP) BASIC METABOLIC [id number] 08:11:00 Test Item Value Reference Range Interpretation [...] 9.1 mg/dL 8.0-10.5 N CA) HEPATIC FUNCTION [id number] 08:11:00 Test Item Value Reference Range Interpretation [...] 174 IUnit/L 20-125 H code = ALKP) [id number] 08:11:00 Test Item Value Reference Range Interpretation Comments MAGNESIUM (test code = MAG) 1.80 mg/dL 1.80-2.40 N [id number] 08:11:00 Test Item Value Reference Range Interpretation Comments TROPONIN-I 0.029 ng/mL 0.000-0.045 N Negative: <= 0. 045 Positive: (test code = >= 0.046 Correl ation with TROPI) serial results, other cardiac markers andclin ical findings is necessary to determine the clinicalsignifi cance of this result. Results using different metho dologies should not be c omparedto one another as minh titative results may babak y by method. BASIC METABOLIC [id number] 08:09:00 Test Item Value Reference Range Interpretation [...] code = CA) mg/dL 8.0-10.5 HEPATIC FUNCTION [id number] 08:09:00 Test Item Value Reference Range Interpretation Comments TOTAL PROTEIN (test code = PROT) g/dL 6.4-8.2 ALBUMIN (test code = ALB) g/dL 3.4-5.0 BILIRUBIN TOTAL (test code = BILT) mg/dL 0.0-1.0 BILIRUBIN DIRECT (test code = BILD) MG/DL 0.0-0.30 SGOT/AST (test code = AST) IUnit/L 15-37 SGPT/ALT (test code = ALT) IUnit/L 30-65 ALKALINE PHOSPHATASE TOTAL (test IUnit/L 20-125 code = ALKP) [id number] 08:09:00 Test Item Value Reference Range Interpretation Comments MAGNESIUM (test code = MAG) mg/dL 1.80-2.40 [id number] 08:09:00 Test Item Value Reference Range Interpretation Comments TROPONIN-I 0.029 ng/mL 0.000-0.045 N Negative: <= 0. 045 Positive: (test code = >= 0.046 Correl ation with TROPI) serial results, other cardiac markers andclin ical findings is necessary to determine the clinicalsignifi cance of this result. Results using different metho dologies should not be c omparedto one another as minh titative results may babak y by method. PROTHROMBIN [id number] 08:06:00 Test Item Value Reference Range Interpretation Comments PROTHROMBIN TIME 20.1 SECONDS 9.3-12.9 H PATIENT (test code = PTP) INTERNATIONAL NORMAL 1.8 0.8-1.2 H TARGET INR BY RATIO (test code = INDICATIO N Indication INR) INR1. Prophylax is of venous thrombos is 2.0 - 3.0 (orthoped ic surgery), Proph ylaxis of venous throm bosis (other than hig h-risk surgery), Treat ment of Deep Vein Thrombosis/Pulm onary Embolism, Preve ntion of systemic emb olism - Tissue heart va lves, Acute Myocardia l Infarction (to prevent systemic emboli sm), Valvular heart disease, Atrial Fibrillation, Bileaflet mecha nical valve in aortic position.2. Mec hanical prosthetic valv es (high risk), 2. 5 - 3.5 Presence of Lup us Anticoagulant o r Antiphospholipi d Antibodies, Pre vention of systemic emb olism - Acute Myocardia l Infarction (to prevent recurrent infar ct). THROMBOPLASTIN TIME [id number] 08:06:00 Test Item Value Reference Range Interpretation Comments THROMBOPLASTIN TIME 44.5 Seconds 25.0-39.5 H Therape utic Range: PARTIAL (test code = 50.4 - 88.3 Seconds PTT) Effective 09/04/2018 CBC W/AUTO [id number] 07:58:00 Test Item Value Reference Range Interpretation [...] NO = MDIFF) - XR CHEST 1 [id number] 07:57:00 [facility] : 1960 Sex: M FAX: Todd Jacobo MD [phone] [place]: St: REG FAX: Martínez Dash NP [phone] Name: FAITH VANCE [facility] : 1960 Age/S: 60/[place] [address] [place] [address] Unit #: [id number] Loc: [place] [address] Phys: Martínez Dash NP Acct: [id number] Dis Date: Status: REG ER PHONE #: [phone] Exam Date: 08/10/2020 [facility] FAX #: [phone] Reason: Chest Pain EXAMS: CPT CODE: [id number] XR CHEST 1 V 55078 Chest single view 08/10/2020 HISTORY: Chest pain. Comparison is made to 05/21/2018 FINDINGS: Pacemaker and midline sternotomy wires are stable. The lungs are hypoinflated. No consolidation or pleural effusion is present. No vascular congestion or interstitial edema is present. Heart size is mildly enlarged. Aorta is unchanged. IMPRESSION: Hypoinflated lungs. No acute cardiopulmonary process. SL:[id number] at 0757 Reported and signed by: Khai Kruse M.D. CC: Todd Jacobo MD; Martínez Dash NP Technologist: Juliane Montemayor RT(R) Trnscrd Date/Time/By: 08/10/2020 (0752) : By: [email or web address] Orig Print D/T: S: 08/10/2020 (0800) PAGE 1 Signed Report COMPREHENSIVE METABOLIC [id number] 18:02:00 Test Item Value Reference Range Interpretation [...] 50-136 H TOTAL (test code = ALKP) [id number] 18:02:00 Test Item Value Reference Range Interpretation Comments AMYLASE (test code = SERGIO) 82 Unit/L 25-115 N [id number] 18:02:00 Test Item Value Reference Range Interpretation Comments LIPASE (test code = LIP) 185 Unit/L 114-286 N COMPREHENSIVE METABOLIC [id number] 17:56:00 Test Item Value Reference Range Interpretation [...] TOTAL Unit/L 50-136 (test code = ALKP) [id number] 17:56:00 Test Item Value Reference Range Interpretation Comments AMYLASE (test code = SERGIO) Unit/L 25-115 [id number] 17:56:00 Test Item Value Reference Range Interpretation Comments LIPASE (test code = LIP) 185 Unit/L 114-286 N CBC W/AUTO [id number] 17:46:00 Test Item Value Reference Range Interpretation [...] CRITERIA MDIFF) - CT ABD PELVIS W/O [id number] 17:46:00 Name: FAITH VANCE [facility] : 1960 Age/S: 58 / M [address] Unit #: [id number] Loc: [place] [address] Phys: Nila Chester MD Acct: [id number] Dis Date: Status: REG ER PHONE #: [phone] Exam Date: 01/03/2019 1730 FAX #: Reason: llq EXAMS: CPT: [id number] CT ABDPELVIS W/O CONT 88295 Location of dictation: B2 CT abdomen and pelvis without contrast [...] mGy-cm. COMPARISON: 09/14/2017 FINDINGS: Lung bases: Minimal patchy infiltrate right lung base, stable. Hepatobiliary: Fatty liver [...] abnormal mass or adenopathy. Bones and soft tissues:Postsurgical changes of the lower lumbar spine with no focal findings or changes. IMPRESSION: 1. Comparison made to 09/14/2017. No acute findings or changes in the abdomen or pelvis. 2. Status post cholecystectomy. PAGE 1 Signed Report (CONTINUED) Name: FAITH VANCE [facility] : 1960 Age/S: 58 / M [address] [address] [address] Unit #: [id number] Loc: [place] [address] Phys: Nila Chester MD Acct: [id number] Dis Date: Status: REG ER PHONE #: [phone] Exam Date: 01/03/2019 1730 FAX #: Reason: llq EXAMS: CPT: [id number] CT ABD PELVIS W/O CONT 40338 <Continued> at 1746 Reported and signed by: Renuka Willett M.D. CC: Nila Chester MD Technologist:Tavon Jurado, RT(R)(CT)(MRI) CTDI: DLP: Trnscb Date/Time: 01/03/2019 (675) JhonPXC Orig Print D/T: S: 01/03/2019 (7040) PAGE 2 Signed ReportBedside [id number] 11:47:00 Test Item Value Reference Range Interpretation Comments Bedside Glucose (test code = 31964-3) 155 70-120 H Meter ID: [id number] [facility] Center of Southeast Texasodium [id number] 08:31:00 Test Item Value Reference Range Interpretation Comments Sodium Level (test code = 2951-2) 139 136-145 [facility]woodPotassium [id number] 08:31:00 Test Item Value Reference Range Interpretation Comments Potassium Level (test code = 2823-3) 4.0 3.5-5.1 [facility] KingwoodChloride [id number] 08:31:00 Test Item Value Reference Range Interpretation Comments Chloride Level (test code = 2075-0) 106 98-107 [facility] KingwoodCarbon Dioxide [id number] 08:31:00 Test Item Value Reference Range Interpretation Comments Carbon Dioxide Level (test code = 8-9) [facility] KingwoodAnion [id number] 08:31:00 Test Item Value Reference Range Interpretation Comments Anion Gap (test code = 69142-0) 12.0 8-16 [facility] KingwoodBlood Urea Uadcldvl2622-27-80 08:31:00 Test Item Value Reference Range Interpretation Comments Blood Urea Nitrogen (test code = 12-14 3094-0) [facility] KingwoodCreatinine2018-06-08 08:31:00 Test Item Value Reference Range Interpretation Comments Creatinine (test code = 2160-0) 0.72 0.72-1.25 [facility] KingwoodBUN/Creatinine [id number] 08:31:00 Test Item Value Reference Range Interpretation Comments BUN/Creatinine Ratio (test code = 11-13 3097-3) [facility] KingwoodEstimat Glomerular Filtration [id number] 08:31:00 Test Item Value Reference Range Interpretation Comments Estimat Glomerular Filtration Rate 60- >60 (test code = 40264-1) Ranges were taken from the National Kidney Disease Education Program and the National Kidney Foundation literature.Reference ranges:60 or greater: Hqxwkj59- 59 (for 3 consecutive months): Chronic kidneydisease 15 or less: Kidney failure [facility] KingwoodGlucose [id number] 08:31:00 Test Item Value Reference Range Interpretation Comments Glucose Level (test code = VNJ5958) 195 74-118 H [facility] KingwoodCalcium [id number] 08:31:00 Test Item Value Reference Range Interpretation Comments Calcium Level (test code = 77492-7) 9.0 8.4-10.2 [facility] KingwoodWhite Blood [id number] 08:12:00 Test Item Value Reference Range Interpretation Comments White Blood Count (test code = 6690-2) 6.06 4.8-10.8 [facility] KingwoodRed Blood [id number] 08:12:00 Test Item Value Reference Range Interpretation Comments Red Blood Count (test code = 789-8) 4.22 4.3-5.7 L [facility] KingwoodHemoglobin2018-06-08 08:12:00 Test Item Value Reference Range Interpretation Comments Hemoglobin (test code = 56614-1) 12.5 14.0-18.0 L [facility] KingwoodHematocrit2018-06-08 08:12:00 Test Item Value Reference Range Interpretation Comments Hematocrit (test code = 4544-3) 36.2 38.2-49.6 L [facility] KingwoodMean Corpuscular [id number] 08:12:00 Test Item Value Reference Range Interpretation Comments Mean Corpuscular Volume (test code = 85.8 81-99 787-2) [facility] KingwoodMean Corpuscular Lkcvzajuil3420-07-10 08:12:00 Test Item Value Reference Range Interpretation Comments Mean Corpuscular Hemoglobin (test code 29.6 28-32 = 785-6) [facility] KingwoodMean Corpuscular Hemoglobin Pxrpceu6934-87-92 08:12:00 Test Item Value Reference Range Interpretation Comments Mean Corpuscular Hemoglobin Concent 34.5 31-35 (test code = 786-4) [facility] KingwoodRed Cell Distribution Eotzy5674-29-10 08:12:00 Test Item Value Reference Range Interpretation Comments Red Cell Distribution Width (test code 14.2 11.7-14.4 = 52124-8) [facility] KingwoodPlatelet [id number] 08:12:00 Test Item Value Reference Range Interpretation Comments Platelet Count (test code = 777-3) 263 140-360 [facility] KingwoodNeutrophils (%) (Auto)2017-10-27 08:12:00 Test Item Value Reference Range Interpretation Comments Neutrophils (%) (Auto) (test code = 51.2 38.7-80.0 55322-0) [facility] KingwoodLymphocytes (%) (Auto)2017-10-27 08:12:00 Test Item Value Reference Range Interpretation Comments Lymphocytes (%) (Auto) (test code = 33.7 18.0-39.1 736-9) [facility] KingwoodMonocytes (%) (Auto)2017-10-27 08:12:00 Test Item Value Reference Range Interpretation Comments Monocytes (%) (Auto) (test code = 9.1 4.4-11.3 5905-5) [facility] KingwoodEosinophils (%) (Auto)2017-10-27 08:12:00 Test Item Value Reference Range Interpretation Comments Eosinophils (%) (Auto) (test code = 4.8 0.0-6.0 713-8) [facility] KingwoodBasophils (%) (Auto)2017-10-27 08:12:00 Test Item Value Reference Range Interpretation Comments Basophils (%) (Auto) (test code = 0.7 0.0-1.0 706-2) [facility] KingwoodIM GRANULOCYTES %2017-10-27 08:12:00 Test Item Value Reference Range Interpretation Comments IM GRANULOCYTES % (test code = IM 0.5 0.0-1.0 GRANULOCYTES %) [facility] KingwoodNeutrophils # (Auto)2017-10-27 08:12:00 Test Item Value Reference Range Interpretation Comments Neutrophils # (Auto) (test code = 3.1 2.1-6.9 751-8) [facility] KingwoodLymphocytes # (Auto)2017-10-27 08:12:00 Test Item Value Reference Range Interpretation Comments Lymphocytes # (Auto) (test code = 2.0 1.0-3.2 26734-8) [facility] KingwoodMonocytes # (Auto)2017-10-27 08:12:00 Test Item Value Reference Range Interpretation Comments Monocytes # (Auto) (test code = 742-7) 0.6 0.2-0.8 [facility] KingwoodEosinophils # (Auto)2017-10-27 08:12:00 Test Item Value Reference Range Interpretation Comments Eosinophils # (Auto) (test code = 0.3 0.0-0.4 711-2) [facility] KingwoodBasophils # (Auto)2017-10-27 08:12:00 Test Item Value Reference Range Interpretation Comments Basophils # (Auto) (test code = 704-7) 0.0 0.0-0.1 [facility] KingwoodAbsolute Immature Granulocyte (biyq6834-52-50 08:12:00 Test Item Value Reference Range Interpretation Comments Absolute Immature Granulocyte (auto 0.03 0-0.1 (test code = Absolute Immature Granulocyte (auto) [facility] KingwoodCreatine Kinase [id number] 15:14:00 Test Item Value Reference Range Interpretation Comments Creatine Kinase MB (test code = 3.90 0-5.0 60679-9) [facility] KingwoodTroponin [id number] 15:14:00 Test Item Value Reference Range Interpretation Comments Troponin I (test code = GTB4690) 0.054 0-0.300 [facility] KingwoodCreatine [id number] 15:07:00 Test Item Value Reference Range Interpretation Comments Creatine Kinase (test code = 2157-6) 297 30-200 H [facility] KingwoodHemoglobin A1c Iehlgoc7053-17-65 08:04:00 Test Item Value Reference Range Interpretation Comments Hemoglobin A1c Percent (test code = 12.6 4.0-7.0 H Hemoglobin A1c Percent) [facility] KingwoodTriglycerides Zblvq2064-03-01 06:57:00 Test Item Value Reference Range Interpretation Comments Triglycerides Level (test code = 200 0-149 H 2571-8) [facility] KingwoodCholesterol [id number] 06:57:00 Test Item Value Reference Range Interpretation Comments Cholesterol Level (test code = 2093-3) 239 0-199 H Less than 200 mg/dL Low Eazg614 - 239 mg/dL Borderline Wbuo421 mg/dl and greater High RiskHCA [facility] Healthcare KingwoodLDL Srbzdchxqck5967-22-41 06:57:00 Test Item Value Reference Range Interpretation Comments LDL Cholesterol (test code = 2089-1) 164 60-130 H [facility] KingwoodHDL Zshmnotxfdi2347-08-14 06:57:00 Test Item Value Reference Range Interpretation Comments HDL Cholesterol (test code = 2085-9) 35 40-60 L [facility] KingwoodCholesterol/HDL Geycz1264-30-57 06:57:00 Test Item Value Reference Range Interpretation Comments Cholesterol/HDL Ratio (test code = 6.8 3.9-4.7 H 9830-1) [facility] KingwoodUrine Opiates Wvbquy9170-75-78 16:18:00 Test Item Value Reference Range Interpretation Comments Urine Opiates Screen (test code = NEGATIVE NEGATIVE 45844-6) [facility] KingwoodUrine Barbiturates Xbcyvz2415-87-82 16:18:00 Test Item Value Reference Range Interpretation Comments Urine Barbiturates Screen (test code NEGATIVE NEGATIVE = 388550450) [facility] KingwoodUrine Phencyclidine Smqtzm6167-04-60 16:18:00 Test Item Value Reference Range Interpretation Comments Urine Phencyclidine Screen (test NEGATIVE NEGATIVE code = 64181-6) [facility] KingwoodUrine Amphetamines Czsvrj6464-77-71 16:18:00 Test Item Value Reference Range Interpretation Comments Urine Amphetamines Screen (test code NEGATIVE NEGATIVE = 91008-6) [facility] KingwoodUrine Methamphetamines Uuxxmw9716-93-92 16:18:00 Test Item Value Reference Range Interpretation Comments Urine Methamphetamines Screen (test NEGATIVE NEGATIVE code = Urine Methamphetamines Screen) [facility] KingwoodUrine Benzodiazepines Xphtya7215-95-42 16:18:00 Test Item Value Reference Range Interpretation Comments Urine Benzodiazepines Screen (test NEGATIVE NEGATIVE code = 36297-9) [facility] KingwoodUrine Cocaine Kuazhy9461-48-73 16:18:00 Test Item Value Reference Range Interpretation Comments Urine Cocaine Screen (test code = NEGATIVE NEGATIVE 3398-5) [facility] KingwoodUrine Cannabinoids Fjtmcc3884-46-29 16:18:00 Test Item Value Reference Range Interpretation Comments Urine Cannabinoids Screen (test code NEGATIVE NEGATIVE = 39559-7) THESE RESULTS ARE FOR MEDICAL TREATMENT ONLYTHIS REPORT CONTAINS UNCONFIRMED SCREENING RESULTS*POSITIVE RESULTS WILL BE CONFIRMED BY REFERENCE LAB UPON REQUEST CUT-OFFDRUG CLASS CONCENTRATION ng/mLAmphetamines 1000Methamphetamines 1000Cocaine 300Opiate 300Phencyclidine 25Cannabinoid 50Barbiturates 300Benzodiazepine 300Methadone 300[facility] KingwoodUrine Methadone Ulftoa7908-79-78 16:18:00 Test Item Value Reference Range Interpretation Comments Urine Methadone Screen (test code = NEGATIVE NEGATIVE 30993-4) THESE RESULTS ARE FOR MEDICAL TREATMENT ONLYTHIS REPORT CONTAINS UNCONFIRMED SCREENING RESULTS*POSITIVE RESULTS WILL BE CONFIRMED BY REFERENCE LAB UPON REQUEST CUT-OFFDRUG CLASS CONCENTRATION ng/mLAmphetamines 1000Methamphetamines 1000Cocaine Metabolite 300Opiate 300Phencyclidine 41Pulqkrxnkuj36Pujxtarenkhu 300Benzodiazepine 300Methadone 300[facility] KingwoodProthrombin [id number] 14:13:00 Test Item Value Reference Range Interpretation Comments Prothrombin Time (test code = 5902-2) 13.6 11.9-14.5 [facility] KingwoodProthromb Time International Ymuny0774-16-80 14:13:00 Test Item Value Reference Range Interpretation Comments Prothromb Time International Ratio 1.13 (test code = 6301-6) Oral Anticoagulant Therapy INR Values:1. Low Intensity Therapy 1.5 - 2.02. Moderate Intensity Therapy 2.0 - 3.03. High Intensity Therapy(1) 2.5 - 3.54. High Intensity Therapy(2) 3.0 - 4.05. Panic ValueINR > 5.0[facility] KingwoodActivated Partial Thromboplast [id number] 14:13:00 Test Item Value Reference Range Interpretation Comments Activated Partial Thromboplast Time 27.6 23.8-35.5 (test code = 74956-2) [facility] KingwoodAlkaline Lplevrdtvov0296-73-84 14:10:00 Test Item Value Reference Range Interpretation Comments Alkaline Phosphatase (test code = 109 40-150 6768-6) [facility] KingwoodB-Type Natriuretic Hjnfzow3989-22-86 14:10:00 Test Item Value Reference Range Interpretation Comments B-Type Natriuretic Peptide (test code = 92.8 0-100 06975-8) [facility] KingwoodAmylase Eawkx7525-71-21 14:10:00 Test Item Value Reference Range Interpretation Comments Amylase Level (test code = 1798-8) 126 25-125 H [facility] KingwoodLipase2018-06-04 14:10:00 Test Item Value Reference Range Interpretation Comments Lipase (test code = 3040-3) 98 8-78 H [facility] KingwoodTotal Uixhkjlam5096-09-35 14:10:00 Test Item Value Reference Range Interpretation Comments Total Bilirubin (test code = 1975-2) 0.6 0.2-1.2 [facility] KingwoodAspartate Amino Transf (AST/SGOT)2017-10-23 14:10:00 Test Item Value Reference Range Interpretation Comments Aspartate Amino Transf (AST/SGOT) (test 36 5-34 H code = Aspartate Amino Transf (AST/SGOT)) [facility] KingwoodAlanine Aminotransferase (ALT/SGPT)2017-10-23 14:10:00 Test Item Value Reference Range Interpretation Comments Alanine Aminotransferase (ALT/SGPT) 34 0-55 (test code = 1742-6) [facility] KingwoodTotal Vjbnspr3167-81-73 14:10:00 Test Item Value Reference Range Interpretation Comments Total Protein (test code = 2885-2) 7.3 6.5-8.1 [facility] KingwoodAlbumin2018-06-04 14:10:00 Test Item Value Reference Range Interpretation Comments Albumin (test code = 1751-7) 4.0 3.5-5.0 [facility] KingwoodGlobulin2018-06-04 14:10:00 Test Item Value Reference Range Interpretation Comments Globulin (test code = 15467-7) 3.3 2.3-3.5 [facility] KingwoodAlbumin/Globulin Kqldk0529-17-47 14:10:00 Test Item Value Reference Range Interpretation Comments Albumin/Globulin Ratio (test code = 1.2 0.8-2.0 1759-0) [facility] KingwoodD-Dimer Quantitative (PE/DVT)2017-10-23 14:02:00 Test Item Value Reference Range Interpretation Comments D-Dimer Quantitative (PE/DVT) (test 0.49 0.00-0.45 H code = 05312-1) [facility] KingwoodDirect Sipubrvbx9251-51-32 13:47:00 Test Item Value Reference Range Interpretation Comments Direct Bilirubin (test code = 04355-4) 0.2 0.0-5.0 [facility] KingwoodMagnesium Hgkuz1909-85-42 06:52:00 Test Item Value Reference Range Interpretation Comments Magnesium Level (test code = 22032-3) 1.5 1.3-2.1 [facility] KingwoodUrine LKL7248-77-45 05:09:00 Test Item Value Reference Range Interpretation Comments Urine WBC (test code = 5821-4) NONE 0-5 [facility] KingwoodUrine OOT0369-08-90 05:09:00 Test Item Value Reference Range Interpretation Comments Urine RBC (test code = 90692-0) NONE 0-5 [facility] KingwoodUrine Lxdvfcxd3139-48-41 05:09:00 Test Item Value Reference Range Interpretation Comments Urine Bacteria (test code = 50727-8) NONE NONE [facility] KingwoodUrine Epithelial Fpqqj7510-70-97 05:09:00 Test Item Value Reference Range Interpretation Comments Urine Epithelial Cells (test code = NONE NONE 88056-5) [facility] KingwoodUrine Iurun0911-04-10 04:46:00 Test Item Value Reference Range Interpretation Comments Urine Color (test code = 5778-6) YELLOW YELLOW [facility] KingwoodUrine Tbnoyvv5117-21-92 04:46:00 Test Item Value Reference Range Interpretation Comments Urine Clarity (test code = 08615-2) CLEAR CLEAR [facility] [id number] 04:46:00 Test Item Value Reference Range Interpretation Comments Urine Specific [place] (test code = 1.010 1.010-1.025 5811-5) [facility] [id number] 04:46:00 Test Item Value Reference Range Interpretation Comments Urine pH (test code = 67379-4) 8 5-7 H [facility] Leukocyte [id number] 04:46:00 Test Item Value Reference Range Interpretation Comments Urine Leukocyte Esterase (test code NEGATIVE NEGATIVE = 5799-2) [facility] [id number] 04:46:00 Test Item Value Reference Range Interpretation Comments Urine Nitrite (test code = 57882-2) NEGATIVE NEGATIVE [facility] [id number] 04:46:00 Test Item Value Reference Range Interpretation Comments Urine Protein (test code = 5804-0) NEGATIVE NEGATIVE [facility] Glucose (UA)2017-03-05 04:46:00 Test Item Value Reference Range Interpretation Comments Urine Glucose (UA) (test code = NEGATIVE NEGATIVE 2349-9) [facility] [id number] 04:46:00 Test Item Value Reference Range Interpretation Comments Urine Ketones (test code = 53615-4) NEGATIVE NEGATIVE [facility] [id number] 04:46:00 Test Item Value Reference Range Interpretation Comments Urine Urobilinogen (test code = 0.2 0.2-1 49011-5) [facility] [id number] 04:46:00 Test Item Value Reference Range Interpretation Comments Urine Bilirubin (test code = 1978-6) NEGATIVE NEGATIVE [facility] [id number] 04:46:00 Test Item Value Reference Range Interpretation Comments Urine Blood (test code = 54663-8) 2+ NEGATIVE H [facility] [place] [address] PatientName: FAITH VANCE MR #: [id number] : 1960 Age/Sex: 57/M Req #: [id number] Adm Physician: ALEXIS COX MD Ordered by: ALEXIS COX MD Report #: [id number] Location: [facility] Room/Bed: [place] [address] Procedure: [id number] CT/CTA BRAIN Exam Date: 10/24/17 Exam Time: 1541 REPORT STATUS: Signed Intracranial CTA History: Weakness, left-sided numbness, possible CVA, Comparison studies:Head CT of 10/23/2017. Technique: Axial images were obtained from the skull base to the vertex. [place] sagittal images reconstructed from the axial data. [...] proximal M2 segments. Anterior cerebral arteries: Patent, noabnormalities in the A1 and A2 segments. Vertebral arteries: Calcified plaque bilaterally result in approximately 50% stenosis. Basilar artery: Patent, no abnormalities. Posterior cerebral arteries: Patent, no abnormalities. Anatomical variants: Anterior communicating artery: Patent. Posterior communicating arteries: Hypoplastic bilaterally. Vertebral arteries: Codominant. Incidental findings: Mild mucosal thickening in the right maxillary sinus with small bilateral maxillary sinus retention cysts. I MPRESSION: 1. Atherosclerosis in the bilateral carotid siphons with approximately 50-60% stenosis inthe left paraophthalmic segment and approximately 40-50% stenosis [...] COPY TO: ALEXIS COX MDCT BRAIN WO [place] [address] PatientName: FAITH VANCE MR #: [id number] : 1960 Age/Sex: 57/M Req #: [id number] Adm Physician: Ordered by: KHAI WAHL MD Report #: [id number] Location: ER Room/Bed: __ Procedure: [id number] CT/CT BRAIN WO Exam Date: 10/23/17 Exam Time: 1545 REPORT STATUS: Signed Exam: Head CT without contrast History: Left- sided weakness Comparison studies: Head CT 04/04/2017. Technique: [...] intracranial abnormalities. 2. No changes from the previoushead CT of 04/04/2017. Findings discussed with Dr. Silvana manzo at 4:36 PM on 10/23/2021. Signed by: Dr. Ana Maria Arteaga M.D. on 10/23/2017 4:43 PM Dictated By: ANA MARIA ARTEAGA MD Electronically SignedBy: ANA MARIA ARTEAGA MD on 10/23/171642 Transcribed By: ANDREE on 10/23/171642 COPY TO: KHAI WAHL V MDCTA CHEST [facility] [address] [place] [address] PatientName: FAITH VANCE MR #: [id number] : 1960 Age/Sex: 57/M Req #: [id number] Adm Physician: Ordered by: KHAI WAHL MD Report #: [id number] Location: ER Room/Bed: __ Procedure: [id number] CT/CTA CHEST Exam Date: 10/23/17 Exam Time: [...] 100 mL Isovue-370. Total DLP: 1960 mGy*cm Est.Eff. Dose DLP x 0.015 x size factor mSv (CTDIvol has been reviewed and is below limits set by [facility]). FINDINGS: Lines and Tubes: Pacemaker with leads terminating right atrium and right ventricular apex. Lower Neck: The visualized thyroid gland is grossly unremarkable with no suspicious or significant nodule identified. Heart and Great Vessels: The pulmonary artery measure 23 mm. No pericardial effusionpresent. Moderate coronary artery vascular calcifications are present. [...] Dr. Oren Irizarry MD on 10/23/2017 4:21 PMDictated By: OREN IRIZARRY MD 162 Transcribed By: ANDERE on 10/23/17 1621 COPY TO: KHAI WAHL V [facility] SINGLE (PORTABLE) [place] [address] PatientName: FAITH VANCE MR #: [id number] : 1960 Age/Sex: 57/M Req #: [id number] Adm Physician: Ordered by: KHAI WAHL MD Report #: [id number] Location: ER Room/Bed: __ Procedure: [id number] DX/CHEST SINGLE (PORTABLE) Exam Date: 10/23/17 Exam [...] By: ANIBAL on 10/23/17 1443 COPY TO: KHAI WAHL V MDCT BRAIN WO [place] [address] PatientName: FAITH VANCE MR #: [id number] : 1960 Age/Sex: 56/M Req #: [id number] Adm Physician: Ordered by: JACQUELYN MONTES DE OCA MD Report #: [id number] Location: ER Room/Bed: Procedure: [id number] CT/CT BRAIN WO Exam Date: Exam Time: REPORT STATUS: Signed EXAMINATION: Head CT without contrast. HISTORY:Status post fall. COMPARISON:Report of CT brain from 11/08/2008. TECHNIQUE: Multidetector axial images were obtained from the foramen magnum to the vertex without contrast. The imageswere reconstructed using brain and bone algorithms. Thin [...] for age. Craniocervical junction: No mass, Chiari malformation,or basilar invagination. Sella: No mass. Paranasal/mastoid sinuses: Mild mucosal thickening in rightmaxillary sinus. IMPRESSION: No intracranial abnormality. Signed by: Dr. Brett Jean M.D. on 04/04/2017 2:02 AM Dictated By: BRETT JEAN MD 1 Transcribed By: ANDREE on 04/04/17201 COPY TO: JACQUELYN MONTES DE OCA MDCT CERVICAL SPINE WO [place] [address] PatientName: FAITH VANCE MR #: [id number] : 1960 Age/Sex: 56/M Req #: [id number] Adm Physician: Ordered by: JACQUELYN MONTES DE OCA MD Report #: [id number] Location: ER Room/Bed: Procedure: [id number] CT/CT CERVICAL SPINE WO Exam Date: Exam [...] detailed above. Signed by: Dr. Brett Jean M.D.on 04/04/2017 2:07 AM Dictated By: BRETT JEAN MD 6 Transcribed By: ANDREE on 04/04/17206 COPY TO: JACQUELYN MONTES DE OCA [facility] SINGLE (PORTABLE) [place] [address] PatientName: FAITH VANCE MR #: [id number] : 1960 Age/Sex: 56/M Req #: [id number] Adm Physician: Ordered by: JACQUELYN MONTES DE OCA MD Report #: [id number] Location: ER Room/Bed: Procedure: [id number] DX/CHEST SINGLE (PORTABLE) Exam Date: 04/04/17 Exam [...] OCA MDHIP RIGHT 2-3 VW (+/- PELVIS) [place] [address] PatientName: FAITH VANCE MR #: [id number] : 1960 Age/Sex: 56/M Req #: [id number] Adm Physician: Ordered by: JACQUELYN MONTES DE OCA MD Report #: [id number] Location: ER Room/Bed: Procedure: [id number] DX/HIP RIGHT 2-3 VW (+/- PELVIS) Exam Date: Exam Time: REPORT STATUS: Signed HIP RIGHT 2-3 VW (+/- PELVIS) Comparison: None Clinical history: Fall, hip pain Findings: Mild bilateral hipdegenerative changes with prominent acetabular osseous coverage of the femoral head and femoral headneck junction. No acute fracture or dislocation. Clips overlie the right inguinal region. Partially imaged lumbar hardware. Vascular calcifications. Impression: No acute bony abnormality Signed by: Dr Marco A Talbot MD on 04/04/2017 2:14 AM Dictated By: MARCO A TALBOT MD 3 Transcribed By: ANDREE on 04/04/17213 COPY TO: JACQUELYN MONTES DE OCA MDSP LUMBAR, COMPLETE MIN 4VW [facility] [address] [place] [address] PatientName: FAITH VANCE MR #: [id number] : 1960 Age/Sex: 56/M Req #: [id number] Adm Physician: Ordered by: JACQUELYN MONTES DE OCA MD Report #: [id number] Location: ER Room/Bed: Procedure: [id number] DX/SP LUMBAR, COMPLETE MIN 4VW Exam Date: [...] Scattered degenerative changes, with moderate to severe L2- L4 facet arthrosis, degenerative disc disease and posterior disc osteophyte at L2-3. Impression: No acute bony abnormality Signed by: Dr Marco A Talbot MD on 04/04/2017 2:28 AM Dictated By: MARCO A TALBOT MD 7 Transcribed By: ANDREE on 04/04/17227 COPY TO: JACQUELYN MONTES DE OCA MDUS ABDOMEN COMPLETE [place] [address] PatientName: FAITH VANCE MR #: [id number] : 1960 Age/Sex: 56/M Req #: [id number] Adm Physician: NICHELLE PALACIOS MD Ordered by: SCOTT AMIN MD Report #: [id number] Location: [facility] Room/Bed: [address] Procedure: [id number] US/US ABDOMEN COMPLETE Exam Date: 03/08/17 Exam Time: 912 REPORT STATUS: Signed PROCEDURE: ABDOMINAL ULTRASOUND COMPARISON: None. INDICATIONS: Elevated LFTsFINDINGS: Liver: 15.2 cm. Increased hepatic parenchymal echogenicity. [...] 10:40 Electronically approved by: Brooke Sampson M.D. on 03/08/2017 at 10:40 Dictated By: BROOKE SAMPSON MD 1040 Transcribed By: ANIBAL on 03/08/17 1040 COPY TO: SC[facility]IN [facility] [place] [place] [address] PatientName: FAITH VANCE MR #: [id number] : 1960 Age/Sex: 56/M Req #: [id number] Adm Physician: Ordered by: JACQUELYN MONTES DE OCA MD Report #: [id number] Location: ER Room/Bed: Procedure: [id number] DX/CHEST SINGLE (PORTABLE) Exam Date: 03/05/17 Exam Time: 0445 REPORT STATUS: Signed CHEST SINGLE (PORTABLE), 03/05/2017 4:15 AM Technique: CHEST SINGLE (PORTABLE) Comparison: 01/04/2017 Cl inical history: Chest pain Findings: Status post median sternotomy with broken superior sternotomy wire. See impression. Impression: Low lung volumes result in accentuation of the cardiomediastinal silhouette and bibasilar vascular crowding. No pleural effusion or pneumothorax. Signed by: Dr Marco A Talbot MD on 03/05/2017 5:35 AM Dictated By: MARCO A TALBOT MD Transcribed By: ANDREE on 03/05/1735 COPY TO: JACQUELYN MONTES DE OCA MD"
--- NOTE | 2021-12-21 16:29 | P.PN ---
Subjective Date of Service: 12/21/21 Chief Complaint: Chest pain Subjective: Improving No acute events since admission. He states that his chest pain is persistent, but has gradually been improving. He currently grades it a 2-3/10 in severity. Review of Systems 10-point ROS is otherwise unremarkable Cardiovascular: Chest Pain Physical Examination - Vital Signs Temperature: 98.1 F Blood Pressure: 136/85 Pulse: 76 Respirations: 19 Pulse Ox (%): 99 - Physical Exam General: Alert, In no apparent distress, Oriented x3 HEENT: Normocephalic, Mucous membr. moist/pink, EOMI, Sclerae nonicteric Neck: Supple, JVD not distended Respiratory: Clear to auscultation bilaterally Cardiovascular: No edema, Regular rate/rhythm, Normal S1 S2, No gallops, No rubs, No murmurs, Other (Pacemaker noted) Gastrointestinal: Normal bowel sounds, Soft and benign, No tenderness, No rebound, No guarding Musculoskeletal: No clubbing, Other (S/p bilateral below the knee amputations) Integumentary: No rashes Neurological: Normal gait, Normal affect - Studies Laboratory Data (last 24 hrs) 12/20/21 19:00: PT 16.1 H, INR 1.45 12/20/21 19:00: WBC 5.3, Hgb 9.5 L, Hct 27.9 L, Plt Count 211 12/20/21 19:00: Sodium 142, Potassium 3.9, BUN 14, Creatinine 0.68, Glucose 144 H, Total Bilirubin 0.5, AST 11 L, ALT 12, Alkaline Phosphatase 107 Assessment And Plan - Plan # Chest Pain with history of Coronary Artery Disease s/p CABG x 3 # Atrial Fibrillation s/p [employer] PPM # Hypertension # Hyperlipidemia - Evaluation thus far: - EKG: reportedly without STEMI criteria - Serial troponin: 17.8 -> 20.9 -> 20.9 - Ordered transthoracic echocardiogram - Chest x-ray = "mild CHF versus volume overload pattern." - Ordered d-dimer as he reports medication non-compliance - If positive, plan to obtain CT chest angiogram - Management plan: - Consulted Cardiology and spoke with Dr. Royal - recommendations appreciated - He provided me with a [employer] pacemaker card confirming that he has a PPM in place; however, there is no mention of an ICD - Plan for pacemaker interrogation since he reported that his pacemaker had shocked him - Continue aspirin, atorvastatin, lisinopril, apixaban - Plan to restart metoprolol when tolerated # Mild Acute on Chronic Systolic Congestive Heart Failure with Reduced Ejection Fraction (LVEF 40-45 %) - Consult Cardiology - recommendations appreciated - Ordered transthoracic echocardiogram - Diuresis with IV furosemide for today - Continue lisinopril and restart metoprolol when tolerated - Daily weights - Strict I/O - Cardiac diet, 1.5 L fluid restriction, 2 g Na restriction # Type II Diabetes Mellitus - Hgb A1c = 6.1 % - Correction scale insulin # Subclinical Hypothyroidism - TSH 5.720, Free T4 1.15 - Follow-up with PCP Lopez Arrington M.D. Discharge Plan: Home Plan to discharge in: 24 Hours Physician Review: Patient Assessed, Agree with Above Assessment and Plan
[2021-12-21] MEDS ORDERED: FUROSEMIDE 40 MG TABLET ONE (17:11)
--- NOTE | 2021-12-21 20:27 | RAD REPORT ---
EXAM DESCRIPTION: CT - Chest For Pe Angio - 12/21/2021 8:12 pm CLINICAL HISTORY: Chest pain. chest pain, elevated DD, noncompl. with anticoag COMPARISON: <Comparisons> TECHNIQUE: CT angiogram of the pulmonary arteries was performed with MIP. All CT scans are performed using dose optimization technique as appropriate and may include automated exposure control or mA/KV adjustment according to patient size. FINDINGS: No evidence of pulmonary thromboembolism. No acute aortic finding demonstrated. Mild atelectasis is present in both lung bases. Moderate bilateral pleural effusions. No concerning bony finding. IMPRESSION: No evidence of pulmonary thromboembolism. Moderate bilateral pleural effusions with atelectasis both bases
[2021-12-21] MEDS: ATORVASTATIN 40 MG TAB PO SCH (23:44)
[2021-12-22] MEDS: ONDANSETRON 4 MG/2 ML VIAL IV PRN ×2 (03:37→15:45)
[2021-12-22] MEDS: MORPHINE 2 MG/ML SYR IV PRN ×4 (03:37→21:30)
[2021-12-22 04:47] LABS: Specific Gravity 1.015 (1.005-1.030); Urine Bilirubin Negative (Negative); Urine Blood 2+ (Negative); Urine Clarity Clear (Clear); Urine Color Yellow (Yellow); Urine Glucose Negative (Negative); Urine Protein 2+ (Negative); Urine Urobilinogen 0.2 mg/dL (0.2-1.0); Urine pH 5.5 (5.0-7.0)
[2021-12-22 05:24] LABS: Urine Bacteria <20 /HPF (<20); Urine Mucus Slight /HPF (None Seen)
[2021-12-22 05:57] LABS: Absolute Lymphocytes (CBC) 1.3 K/uL (0.7-4.9); Hematocrit 29.6 % (39.6-49.0); MCV 90.7 fL (80-100); MPV 7.7 fL (7.6-11.3); RBC Red Blood Cell Count 3.26 M/uL (4.33-5.43)
[2021-12-22] MEDS: LEVOTHYROXINE SOD 0.05 MG TABLET PO SCH (05:58)
[2021-12-22 06:11] LABS: Albumin 2.6 g/dL (3.4-5.0); Bilirubin Total 0.5 mg/dL (0.2-1.0); Potassium 3.8 mmol/L (3.5-5.1); Protein, Total 6.1 g/dL (6.4-8.2)
[2021-12-22] MEDS: INSULIN -REGULAR HUMAN 50 UNIT/0.5 ML ML SQ SCH ×4 (07:30→21:00)
[2021-12-22] MEDS: lisinopriL 5 MG TAB PO SCH (08:50)
[2021-12-22] MEDS: SPIRONOLACTONE 25 MG TABLET PO SCH (09:00)
[2021-12-22] MEDS ORDERED: POTASSIUM CL SA 10 MEQ TAB PO ONE (09:00)
[2021-12-22] MEDS: FUROSEMIDE 40 MG TABLET PO SCH ×2 (09:00→17:09)
[2021-12-22] MEDS: APIXABAN 5 MG TABLET PO SCH ×2 (09:00→21:29)
[2021-12-22] MEDS: ASPIRIN EC 81 MG TAB PO SCH (09:00)
--- NOTE | 2021-12-22 09:50 | EDPHYS ---
Physician Documentation [facility] Name: Ernie Rooney Age: 61 yrs Sex: Male : 1960 Arrival Date: 12/20/2021 Time: 18:43 Bed 17 Private MD: ED Physician Angel Merlos HPI: 12/20 18:43 This 61 yrs old Male presents to ER via Unassigned with complaints of chest rn pain. 18:43 The patient or guardian reports chest pain that is located primarily in the substernal rn area. 18:43 Onset: today. The pain radiates to left neck. Associated signs and symptoms: Pertinent rn positives: shortness of breath, Pertinent negatives: headache. The chest pain is described as a heaviness. Duration: The patient or guardian reports a single episode. Modifying factors: The symptoms are alleviated by nothing. the symptoms are aggravated by nothing. Severity of pain: At its worst the pain was moderate in the emergency department the pain has improved. The patient has experienced similar episodes in the past. The patient has not recently seen a physician. Pt reports chest pain, began today, has been out of medication for 2 weeks due to financial limitations. Also reports at rest today laying down when defibrillator went off, shocked him once. Pt given aspirin and nitro x 1, with improvement but not resolution of pain. . Historical: - Allergies: 18:46 No Known Allergies; bm7 - PMHx: 18:46 Hypertensive disorder; bm7 - Immunization history:: Adult Immunizations up to date. - Social history:: Smoking status: Patient/guardian denies using tobacco products. - Family history:: not pertinent. - Hospitalizations: : No recent hospitalization is reported. ROS: 18:48 Constitutional: Negative for fever, chills, and weight loss, Eyes: Negative for injury, rn pain, redness, and discharge, Cardiovascular: Negative for palpitations, and edema, Respiratory: Negative for shortness of breath, cough, wheezing, and pleuritic chest pain, Abdomen/GI: Negative for vomiting, diarrhea, and constipation, Back: Negative for injury and pain, MS/Extremity: Negative for injury and deformity, Skin: Negative for injury, rash, and discoloration, Neuro: Negative for headache, weakness, numbness, tingling, and seizure. Exam: 18:48 Constitutional: This is a well developed, well nourished patient who is awake, alert, rn appears uncomfortable Head/Face: Normocephalic, atraumatic. Eyes: Periorbital areas with no swelling, redness, or edema. Cardiovascular: Regular rate and rhythm. No pulse deficits. Respiratory: Mild tachypnea, no retractions. Abdomen/GI: Soft, no focal tenderness Skin: Warm, dry MS/ Extremity: No cyanosis. Bilateral lower ext amputations without acute findings. Neuro: Awake and alert, GCS 15 Vital Signs: 18:44 BP 149 / 92; Pulse 86; Resp 16; Temp 98.0(TE); Pulse Ox 98% on R/A; Weight 71.21 kg bm7 (R); Pain 8/10; 19:52 BP 122 / 67; Pulse 80; Resp 20; Pulse Ox 100% ; ll3 21:18 BP 135 / 85; Pulse 79; Resp 20; Pulse Ox 100% on R/A; ll3 23:58 BP 119 / 74; Pulse 75; Resp 11; Pulse Ox 99% ; ll3 MDM: 18:43 Patient medically screened. rn 21:28 Data reviewed: vital signs, nurses notes, lab test result(s), radiologic studies. kdr Counseling: I had a detailed discussion with the patient and/or guardian regarding: the historical points, exam findings, and any diagnostic results supporting the discharge/admit diagnosis, lab results, radiology results, the need for further work-up and treatment in the hospital. 12/20 18:48 Order name: Basic Metabolic Panel; Complete Time: 20: rn 12/20 18:48 Order name: CBC with Diff; Complete Time: 20: rn 12/20 18:48 Order name: LFT's; Complete Time: 20: rn 12/20 18:48 Order name: NT PRO-BNP; Complete Time: 20: rn 12/20 18:48 Order name: PT-INR; Complete Time: 20: rn 12/20 18:48 Order name: Troponin HS; Complete Time: 20: rn 12/20 18:48 Order name: SARS-COV-2 Antigen Rapid; Complete Time: 20: rn 12/21 01:38 Order name: Troponin High Sensitivity; Complete Time: 18:50 EDMS 12/21 04:10 Order name: CBC with Automated Diff; Complete Time: 18:50 EDMS 02 04:33 Order name: Troponin High Sensitivity; Complete Time: 18:50 EDMS 02 04:37 Order name: Comprehensive Metabolic Panel; Complete Time: 18:50 EDMS 02 04:37 Order name: Lipid Profile; Complete Time: 18:50 EDMS 02 04:37 Order name: T4 Free; Complete Time: 18:50 EDMS 02 04:37 Order name: Thyroid Stimulating Hormone; Complete Time: 18:50 EDMS 12/20 18:48 Order name: XRAY Chest (1 view); Complete Time: 20:09 rn 12/20 18:48 Order name: EKG; Complete Time: 18:51 rn 12/20 18:48 Order name: Cardiac monitoring; Complete Time: 18:51 rn 12/20 18:48 Order name: EKG - Nurse/Tech; Complete Time: 18:51 rn 12/20 18:48 Order name: IV Saline Lock; Complete Time: 18:51 rn 12/20 18:48 Order name: Labs collected and sent; Complete Time: 19:00 rn 12/21 04:44 Order name: Hemoglobin A1c; Complete Time: 18:50 EDMS 02 07:41 Order name: Glucose, Ancillary Testing; Complete Time: 18:50 EDMS 02 11:46 Order name: Glucose, Ancillary Testing; Complete Time: 18:50 EDMS 12/21 16:29 Order name: Glucose, Ancillary Testing; Complete Time: 18:50 EDMS 02 18:09 Order name: D-Dimer; Complete Time: 18:50 EDMS 02 20:28 Order name: CT; Complete Time: 21:13 EDMS 12/20 18:48 Order name: O2 Per Protocol; Complete Time: 18:51 rn 12/20 18:48 Order name: O2 Sat Monitoring; Complete Time: 18:51 rn Administered Medications: 19:00 Drug: morphine 4 mg Route: IVP; Infused Over: 4 mins; Site: left forearm; bm7 19:00 Drug: Zofran (Ondansetron) 4 mg Route: IVP; Site: left forearm; bm7 22:08 Drug: HYDROcodone-acetaminophen 5 mg-325 mg 1 tabs Route: PO; ll3 22:45 Drug: Lasix (furosemide) 40 mg Route: IVP; Site: left forearm; ll3 Disposition Summary: 12/20/21 21:27 Hospitalization Ordered Hospitalization Status: Inpatient Admission kdr Provider: Lopez Arrington Condition: Fair kdr Problem: new kdr Symptoms: have improved kdr Bed/Room Type: Standard kdr Location: Telemetry/MedSurg (Inpatient)(12/21/21 20:11) mw Room Assignment: [facility](12/21/21 20:11) mw Diagnosis - Unstable angina kdr - Chest pain, unspecified kdr Forms: - Medication Reconciliation Form kdr - SBAR form kdr Signatures: Dispatcher [employer] EDMS Evelin Se[place] RN RN Angel Merlos MD MD kdr Nieto, Roman, MD MD rn Brendan Davis, FIRE PROTECTION ENGINEERING TECHNICIAN-C FIRE PROTECTION ENGINEERING TECHNICIAN-Cla1 Loida Suresh RN RN bm7 Go Beauchamp RN RN ll3 Corrections: (The following items were deleted from the chart) 21:32 21:27 Telemetry/MedSurg (Inpatient) kdr 21:32 21:27 kdr 12/21 20:11 12/20 21:32 [facility] ER HOLD mw 12/21 20:11 12/20 21:32 ERHOLD- mw
--- NOTE | 2021-12-22 09:50 | ER ---
Nurse's Notes [facility] Name: Ernie Rooney Age: 61 yrs Sex: Male : 1960 Arrival Date: 12/20/2021 Time: 18:43 Bed 17 Private MD: Diagnosis: Unstable angina;Chest pain, unspecified Presentation: 12/20 18:44 Chief complaint: EMS states: he has been out of his medications for a week and now he bm7 has been having chest pain all day and his pacemaker went off about an hour ago. Coronavirus screen: At this time, the client does not indicate any symptoms associated with coronavirus-19. Ebola Screen: No symptoms or risks identified at this time. Initial Sepsis Screen: Does the patient meet any 2 criteria? No. Patient's initial sepsis screen is negative. Does the patient have a suspected source of infection? No. Patient's initial sepsis screen is negative. Risk Assessment: Do you want to hurt yourself or someone else? Patient reports no desire to harm self or others. Onset of symptoms was December 20, 2021. 18:44 Method Of Arrival: EMS: [facility] 18:44 Acuity: TONE 2 bm7 Triage Assessment: 18:46 General: Appears in no apparent distress. uncomfortable, unkempt, Behavior is bm cooperative, appropriate for age. Pain: Complains of pain in CHEST Pain does not radiate. Pain currently is 7 out of 10 on a pain scale. EENT: No deficits noted. No signs and/or symptoms were reported regarding the EENT system. Neuro: Level of Consciousness is awake, alert, obeys commands, Oriented to person, place, time, situation. Cardiovascular: Denies nausea, shortness of breath, vomiting, Heart tones S1 S2 present Rhythm is ventricular pacer Chest pain is described as severe. Respiratory: No deficits noted. GI: No deficits noted. No signs and/or symptoms were reported involving the gastrointestinal system. : No deficits noted. No signs and/or symptoms were reported regarding the genitourinary system. Derm: No deficits noted. No signs and/or symptoms reported regarding the dermatologic system. Musculoskeletal: Amputation of BILATERAL BKA . Historical: - Allergies: 18:46 No Known Allergies; bm7 - PMHx: 18:46 Hypertensive disorder; bm7 - Immunization history:: Adult Immunizations up to date. - Social history:: Smoking status: Patient/guardian denies using tobacco products. - Family history:: not pertinent. - Hospitalizations: : No recent hospitalization is reported. Screenin:48 Abuse screen: Denies threats or abuse. Nutritional screening: No deficits noted. bm7 Tuberculosis screening: No symptoms or risk factors identified. Fall Risk None identified. Assessment: 18:48 Reassessment: No changes from previously documented assessment. bm7 19:52 Reassessment: No changes from previously documented assessment. Patient and/or family ll3 updated on plan of care and expected duration. Pain level reassessed. Patient is alert, oriented x 3, equal unlabored respirations, skin warm/dry/pink. 21:18 Reassessment: No changes from previously documented assessment. Patient and/or family ll3 updated on plan of care and expected duration. Pain level reassessed. Patient is alert, oriented x 3, equal unlabored respirations, skin warm/dry/pink. 23:58 Reassessment: No changes from previously documented assessment. Patient and/or family ll3 updated on plan of care and expected duration. Pain level reassessed. Patient is alert, oriented x 3, equal unlabored respirations, skin warm/dry/pink. Vital Signs: 18:44 BP 149 / 92; Pulse 86; Resp 16; Temp 98.0(TE); Pulse Ox 98% on R/A; Weight 71.21 kg bm7 (R); Pain 8/10; 19:52 BP 122 / 67; Pulse 80; Resp 20; Pulse Ox 100% ; ll3 21:18 BP 135 / 85; Pulse 79; Resp 20; Pulse Ox 100% on R/A; ll3 23:58 BP 119 / 74; Pulse 75; Resp 11; Pulse Ox 99% ; ll3 ED Course: 18:43 Patient arrived in ED. rn 18:43 Hawk Parrish MD is Attending Physician. rn 18:46 Triage completed. bm7 18:46 Arm band placed on right wrist. EKG completed in triage. Results shown to MD. bm7 18:48 Patient has correct armband on for positive identification. Placed in gown. Bed in low bm7 position. Call light in reach. Side rails up X2. Warm blanket given. 18:48 Maintain EMS IV. Dressing intact. Good blood return noted. Site clean \T\ dry. Gauge \T\ bm 7 site: 20 L ARM. Oxygen administration via nasal cannula \T\ 2L/min. 19:04 Initial lab(s) drawn, by me, sent to lab. EKG done, COVID swab sent to lab. bm7 19:16 Attending Physician role handed off by Hawk Parrish MD [facility] 19:16 Angel Merlos MD is Attending Physician. kdr 19:36 XRAY Chest (1 view) In Process Unspecified. EDMS 19:52 Go Beauchamp, SHEBA is Primary Nurse. ll3 21:15 Contacted [facility] spoke to Favio to have someone come out and interrogate the mw2 pacemaker. 21:26 Lopez Arrington MD is Hospitalizing Provider. kdr 12/21 07:44 Primary Nurse role handed off by Go Beauchamp RN 19:09 Berna Florian RN is Primary Nurse. 5 22:45 No provider procedures requiring assistance completed. Patient admitted, IV remains in [address] Administered Medications: 12/20 19:00 Drug: morphine 4 mg Route: IVP; Infused Over: 4 mins; Site: left forearm; bm7 19:00 Drug: Zofran (Ondansetron) 4 mg Route: IVP; Site: left forearm; bm7 22:08 Drug: HYDROcodone-acetaminophen 5 mg-325 mg 1 tabs Route: PO; ll3 22:45 Drug: Lasix (furosemide) 40 mg Route: IVP; Site: left forearm; ll3 Medication: 18:48 VIS not applicable for this client. bm7 Outcome: 21:27 Decision to Hospitalize by Provider. kdr 12/21 22:45 Admitted to Med/surg accompanied by tech, via stretcher, with chart. 5 Condition: stable Instructed on the need for admit. 22:46 Patient left the ED. 5 Signatures: Dispatcher [employer] EDMS Katlin Harris bd Angel Merlos MD MD [facility] Hawk Parrish MD MD rn [place], MyKena mw2 Loida Suresh RN RN 7 Go Beauchamp RN RN [facility] Berna Florian RN RN [id number]
--- NOTE | 2021-12-22 18:37 | P.PN ---
Subjective Date of Service: 12/22/21 Chief Complaint: Chest pain No acute events overnight. He was not in chest pain this morning on rounds; however, he developed an episode of chest pain in the evening. STAT troponin was within normal limits. EKG appears without STEMI criteria. Review of Systems 10-point ROS is otherwise unremarkable Cardiovascular: Chest Pain Physical Examination - Vital Signs Temperature: 97.3 F Blood Pressure: 140/72 Pulse: 78 Respirations: 20 Pulse Ox (%): 100 - Studies Laboratory Data (last 24 hrs) 12/22/21 05:34: Sodium 140, Potassium 3.8, BUN 16, Creatinine 0.94, Glucose 112 H, Total Bilirubin 0.5, AST 18, ALT 18, Alkaline Phosphatase 140 H 12/22/21 05:34: WBC 5.8, Hgb 10.1 L, Hct 29.6 L, Plt Count 223 Assessment And Plan - Plan - Physical Exam General: Alert, In no apparent distress, Oriented x3 HEENT: Normocephalic, Mucous membr. moist/pink, EOMI, Sclerae nonicteric Neck: Supple, JVD not distended Respiratory: Clear to auscultation bilaterally Cardiovascular: No edema, Regular rate/rhythm, Normal S1 S2, No gallops, No rubs, No murmurs, Other (Pacemaker noted) Gastrointestinal: Normal bowel sounds, Soft and benign, No tenderness, No rebound, No guarding Musculoskeletal: No clubbing, Other (S/p bilateral below the knee amputations) Integumentary: No rashes Neurological: Normal gait, Normal affect # Chest Pain with history of Coronary Artery Disease s/p CABG x 3 # Atrial Fibrillation s/p [employer] PPM # Hypertension # Hyperlipidemia - Evaluation thus far: - EKG: reportedly without STEMI criteria - Serial troponin: 17.8 -> 20.9 -> 20.9 -> 19.4 - Transthoracic echocardiogram = pending - Chest x-ray = "mild CHF versus volume overload pattern." - D-dimer = 1524 - CT chest angiogram = "no evidence of pulmonary thromboembolism. Moderate bilateral pleural effusions with atelectasis both bases." - Management plan: - Consulted Cardiology and spoke with Dr. Royal - recommendations appreciated - He provided me with a [employer] pacemaker card confirming that he has a PPM in place; however, there is no mention of an ICD - Plan for pacemaker interrogation since he reported that his pacemaker had shocked him - We are trying to get [facility] personnel to come and interrogate, but the sales representative church furniture stated that she needs to speak to her screen printing supervisor prior - Continue aspirin, atorvastatin, metoprolol, lisinopril, apixaban # Mild Acute on Chronic Systolic Congestive Heart Failure with Reduced Ejection Fraction (LVEF 40-45 %) - Consult Cardiology - recommendations appreciated - Ordered transthoracic echocardiogram - Diuresis with IV furosemide for today - Continue lisinopril, metoprolol - Daily weights - Strict I/O - Cardiac diet, 1.5 L fluid restriction, 2 g Na restriction # Type II Diabetes Mellitus - Hgb A1c = 6.1 % - Correction scale insulin # Subclinical Hypothyroidism - TSH 5.720, Free T4 1.15 - Follow-up with PCP Lopez Arrington M.D. Physician Review: Patient Assessed, Agree with Above Assessment and Plan
[2021-12-22] MEDS: ATORVASTATIN 40 MG TAB PO SCH (21:29)
[2021-12-23 04:02] LABS: Absolute Lymphocytes (CBC) 1.2 K/uL (0.7-4.9); Hematocrit 30.5 % (39.6-49.0); Lymphocytes % 19.4 % (15.3-44.8); MCV 89.3 fL (80-100); MPV 7.6 fL (7.6-11.3); RBC Red Blood Cell Count 3.42 M/uL (4.33-5.43)
[2021-12-23 04:15] LABS: Albumin 2.7 g/dL (3.4-5.0); Bilirubin Total 0.5 mg/dL (0.2-1.0); Potassium 4.5 mmol/L (3.5-5.1); Protein, Total 6.4 g/dL (6.4-8.2)
[2021-12-23] MEDS: METOPROLOL TAR 25 MG TAB PO SCH ×2 (04:48→17:29)
[2021-12-23] MEDS: ONDANSETRON 4 MG/2 ML VIAL IV PRN ×2 (04:48→20:20)
[2021-12-23] MEDS: MORPHINE 2 MG/ML SYR IV PRN ×2 (04:48→20:12)
[2021-12-23] MEDS: LEVOTHYROXINE SOD 0.05 MG TABLET PO SCH (06:03)
[2021-12-23] MEDS: INSULIN -REGULAR HUMAN 50 UNIT/0.5 ML ML SQ SCH ×4 (07:30→20:28)
--- NOTE | 2021-12-23 07:52 | ECHO ---
HEIGHT: 0 ft 0 in WEIGHT: 157 lb 0 oz DATE OF STUDY: 12/22/[address]: Brendan Davis NP 2-DIMENSIONAL: YES M.MODE: YES DOPPLER: YES COLOR FLOW: YES TDS: PORTABLE: YES DEFINITY: BUBBLE STUDY: DIAGNOSIS: CHEST PAIN CARDIAC HISTORY: CATHERIZATION: YES SURGERY: YES PROSTHETIC VALVE: NO PACEMAKER: NO MEASUREMENTS (cm) DIASTOLIC (NORMALS) SYSTOLIC (NORMALS) IVSd 1.2 (0.6-1.2) LA Diam 3.2 (1.9-4.0) LVEF 33% LVIDd 3.8 (3.5-5.7) LVIDs 3.2 (2.0-3.5) %FS 15% LVPWd 1.2 (0.6-1.2) Ao Diam 2.8 (2.0-3.7) 2 DIMENSIONAL ASSESSMENT: RIGHT ATRIUM: NORMAL LEFT ATRIUM: NORMAL RIGHT VENTRICLE: NORMAL LEFT VENTRICLE: NORMAL SIZE TRICUSPID VALVE: NORMAL MITRAL VALVE: NORMAL PULMONIC VALVE: NORMAL AORTIC VALVE: NORMAL PERICARDIAL EFFUSION: NONE AORTIC ROOT: NORMAL LEFT VENTRICULAR WALL MOTION: SEVERE GLOBAL HYPOKINESIS DOPPLER/COLOR FLOW: MILD MITRAL REGURGITATION. MILD PULMONARY HYPERTENSION. COMMENTS: SEVERE GLOBAL HYPOKINESIS. EJECTION FRACTION 23%. MILD PULMONARY HYPERTENSION. TECHNOLOGIST: ESTELLE GOODSON
[2021-12-23] MEDS: lisinopriL 5 MG TAB PO SCH (08:26)
[2021-12-23] MEDS: SPIRONOLACTONE 25 MG TABLET PO SCH (08:27)
[2021-12-23] MEDS: ASPIRIN EC 81 MG TAB PO SCH (08:27)
[2021-12-23] MEDS: APIXABAN 5 MG TABLET PO SCH ×2 (08:27→20:13)
[2021-12-23] MEDS: FUROSEMIDE 40 MG TABLET PO SCH ×2 (08:27→17:30)
--- NOTE | 2021-12-23 17:08 | P.PN ---
Subjective Date of Service: 12/23/21 Chief Complaint: Chest pain No acute events overnight. He denies any chest pain or shortness of breath. [employer] sales utility representative has been unable to come by to interrogate his pacemaker. Dr. Royal is okay with discharge home, but we are waiting for LifeVest prior to discharge. Review of Systems 10-point ROS is otherwise unremarkable Physical Examination - Vital Signs Temperature: 97.4 F Blood Pressure: 117/68 Pulse: 74 Respirations: 18 Pulse Ox (%): 98 Assessment And Plan - Plan - Physical Exam General: Alert, In no apparent distress, Oriented x3 HEENT: Normocephalic, Mucous membr. moist/pink, EOMI, Sclerae nonicteric Neck: Supple, JVD not distended Respiratory: Clear to auscultation bilaterally Cardiovascular: No edema, Regular rate/rhythm, Normal S1 S2, No gallops, No rubs, No murmurs, Other (Pacemaker noted) Gastrointestinal: Normal bowel sounds, Soft and benign, No tenderness, No rebound, No guarding Musculoskeletal: No clubbing, Other (S/p bilateral below the knee amputations) Integumentary: No rashes Neurological: Normal gait, Normal affect # Chest Pain with history of Coronary Artery Disease s/p CABG x 3 # Atrial Fibrillation s/p [facility] PPM # Hypertension # Hyperlipidemia - Evaluation thus far: - EKG: reportedly without STEMI criteria - Serial troponin: 17.8 -> 20.9 -> 20.9 -> 19.4 - Transthoracic echocardiogram = "Severe global hypokinesis. Ejection fraction 23%. Mild pulmonary hypertension." - Chest x-ray = "mild CHF versus volume overload pattern." - D-dimer = 1524 - CT chest angiogram = "no evidence of pulmonary thromboembolism. Moderate bilateral pleural effusions with atelectasis both bases." - Management plan: - Consulted Cardiology and spoke with Dr. Royal - recommendations appreciated - He has cleared for discharge once he receives a Life Vest - He provided me with a [employer] pacemaker card confirming that he has a PPM in place; however, there is no mention of an ICD - Plan for pacemaker interrogation since he reported that his pacemaker had shocked him - We are trying to get [facility] personnel to come and interrogate, but the sales utility representative stated that she needs to speak to her drapery supervisor prior - Continue aspirin, atorvastatin, metoprolol, lisinopril, apixaban # Mild Acute on Chronic Systolic Congestive Heart Failure with Reduced Ejection Fraction (LVEF 23 %) - Consult Cardiology - recommendations appreciated - Transthoracic echocardiogram = "Severe global hypokinesis. Ejection fraction 23%. Mild pulmonary hypertension." - Continue lisinopril, metoprolol, PO furosemide - Daily weights - Strict I/O - Cardiac diet, 1.5 L fluid restriction, 2 g Na restriction # Type II Diabetes Mellitus - Hgb A1c = 6.1 % - Correction scale insulin # Subclinical Hypothyroidism - TSH 5.720, Free T4 1.15 - Follow-up with PCP Lopez Arrington M.D. Physician Review: Patient Assessed, Agree with Above Assessment and Plan
[2021-12-23] MEDS: ATORVASTATIN 40 MG TAB PO SCH (20:12)
--- NOTE | 2021-12-24 01:03 | PN ---
Date of Progress Note: 12/22/2021 Mr. Rooney came in with acute on chronic systolic congestive heart failure; has a history of chron ic atrial fibrillation, on Eliquis; has a history of pacemaker therapy. He has a history of diabetes , hypertension, dyslipidemia. OK was ruled out. Echocardiogram today showed an ejection fraction of 23% with mild pulmonary hypertension and severe global hypokinesis. He is on aspirin. He is on Las ix. He is on a beta-ulises. He is on ARABELLA inhibitor. He is on Aldactone. I agree with his present regimen. I think we should have him wear a LifeVest and I think we should consider use of Entresto. We can certainly start that as an outpatient. As far as I am concerned, he can get diuresis, get t he LifeVest, go home, and I will see him in the office as soon as possible. MOISE Voice ID: [id number] Report ID: [id number]
[2021-12-24] MEDS: METOPROLOL TAR 25 MG TAB PO SCH ×2 (05:59→16:47)
[2021-12-24] MEDS: LEVOTHYROXINE SOD 0.05 MG TABLET PO SCH (05:59)
[2021-12-24 06:27] LABS: Absolute Lymphocytes (CBC) 1.4 K/uL (0.7-4.9); Hematocrit 32.3 % (39.6-49.0); Lymphocytes % 23.2 % (15.3-44.8); MCV 91.8 fL (80-100); MPV 8.3 fL (7.6-11.3); RBC Red Blood Cell Count 3.52 M/uL (4.33-5.43)
[2021-12-24 06:48] LABS: Potassium 4.5 mmol/L (3.5-5.1)
[2021-12-24] MEDS: ONDANSETRON 4 MG/2 ML VIAL IV PRN ×3 (07:01→20:15)
[2021-12-24] MEDS: MORPHINE 2 MG/ML SYR IV PRN ×3 (07:01→20:15)
[2021-12-24] MEDS: INSULIN -REGULAR HUMAN 50 UNIT/0.5 ML ML SQ SCH ×4 (07:30→21:00)
[2021-12-24] MEDS: SPIRONOLACTONE 25 MG TABLET PO SCH (08:28)
[2021-12-24] MEDS: FUROSEMIDE 40 MG TABLET PO SCH ×2 (08:28→16:46)
[2021-12-24] MEDS: lisinopriL 5 MG TAB PO SCH (08:29)
[2021-12-24] MEDS: ASPIRIN EC 81 MG TAB PO SCH (08:29)
[2021-12-24] MEDS: APIXABAN 5 MG TABLET PO SCH ×2 (08:33→20:16)
--- NOTE | 2021-12-24 15:12 | EKG ---
Test Date: 2021-12-22 Test Time: 16:27:55 End Touching Machine Operator: PAULIE MEASUREMENT RESULTS: Intervals: Rate: 74 ME: 184 QRSD: 160 QT: 470 QTc: 521 [place]: P: 1 ME: 184 QRS: -23 T: 151 INTERPRETIVE STATEMENTS: Electronic ventricular pacemaker Compared to ECG 12/20/2021 18:39:04 Atrial-sensed ventricular-paced complex(es) or rhythm no longer present Electronically Signed On 12-24-21 15:09:07 CDT by Kavin Keenan
--- NOTE | 2021-12-24 19:04 | P.PN ---
Subjective Date of Service: 12/24/21 Chief Complaint: Chest pain No acute events overnight. He denies any chest pain or shortness of breath. He is eager for discharge. Awaiting LifeVest prior to discharge. Review of Systems 10-point ROS is otherwise unremarkable Physical Examination - Vital Signs Temperature: 97.3 F Blood Pressure: 121/74 Pulse: 66 Respirations: 18 Pulse Ox (%): 97 Assessment And Plan - Plan - Physical Exam General: Alert, In no apparent distress, Oriented x3 HEENT: Normocephalic, Mucous membr. moist/pink, EOMI, Sclerae nonicteric Neck: Supple, JVD not distended Respiratory: Clear to auscultation bilaterally Cardiovascular: No edema, Regular rate/rhythm, Normal S1 S2, No gallops, No rubs, No murmurs, Other (Pacemaker noted) Gastrointestinal: Normal bowel sounds, Soft and benign, No tenderness, No rebound, No guarding Musculoskeletal: No clubbing, Other (S/p bilateral below the knee amputations) Integumentary: No rashes Neurological: Normal gait, Normal affect # Chest Pain with history of Coronary Artery Disease s/p CABG x 3 # Atrial Fibrillation s/p [employer] PPM # Hypertension # Hyperlipidemia - Evaluation thus far: - EKG: reportedly without STEMI criteria - Serial troponin: 17.8 -> 20.9 -> 20.9 -> 19.4 - Transthoracic echocardiogram = "Severe global hypokinesis. Ejection fraction 23%. Mild pulmonary hypertension." - Chest x-ray = "mild CHF versus volume overload pattern." - D-dimer = 1524 - CT chest angiogram = "no evidence of pulmonary thromboembolism. Moderate bilateral pleural effusions with atelectasis both bases." - Management plan: - Consulted Cardiology and spoke with Dr. Royal - recommendations appreciated - He has cleared for discharge once he receives a Life Vest - He provided me with a [employer] pacemaker card confirming that he has a PPM in place; however, there is no mention of an ICD - Plan for pacemaker interrogation since he reported that his pacemaker had shocked him - We are trying to get [facility] personnel to come and interrogate, but the technical account representative stated that she needs to speak to her plant protection supervisor prior - Continue aspirin, atorvastatin, metoprolol, lisinopril, apixaban # Mild Acute on Chronic Systolic Congestive Heart Failure with Reduced Ejection Fraction (LVEF 23 %) - Consult Cardiology - recommendations appreciated - Transthoracic echocardiogram = "Severe global hypokinesis. Ejection fraction 23%. Mild pulmonary hypertension." - Continue lisinopril, metoprolol, PO furosemide - Daily weights - Strict I/O - Cardiac diet, 1.5 L fluid restriction, 2 g Na restriction # Type II Diabetes Mellitus - Hgb A1c = 6.1 % - Correction scale insulin # Subclinical Hypothyroidism - TSH 5.720, Free T4 1.15 - Follow-up with PCP Life Vest technical account representative unable to come today. Plan for discharge tomorrow. Lopez Arrington M.D. Discharge Plan: Home Plan to discharge in: 24 Hours
[2021-12-24] MEDS: ATORVASTATIN 40 MG TAB PO SCH (20:16)
[2021-12-25] MEDS: MORPHINE 2 MG/ML SYR IV PRN ×2 (02:17→08:18)
[2021-12-25] MEDS: ONDANSETRON 4 MG/2 ML VIAL IV PRN ×2 (02:17→08:18)
[2021-12-25 03:46] LABS: Absolute Lymphocytes (CBC) 1.5 K/uL (0.7-4.9); Hematocrit 31.4 % (39.6-49.0); Lymphocytes % 23.9 % (15.3-44.8); MCV 89.6 fL (80-100); MPV 7.6 fL (7.6-11.3); RBC Red Blood Cell Count 3.51 M/uL (4.33-5.43)
[2021-12-25 04:03] LABS: Potassium 4.5 mmol/L (3.5-5.1)
[2021-12-25] MEDS: METOPROLOL TAR 25 MG TAB PO SCH (05:37)
[2021-12-25] MEDS: LEVOTHYROXINE SOD 0.05 MG TABLET PO SCH (05:37)
[2021-12-25] MEDS: INSULIN -REGULAR HUMAN 50 UNIT/0.5 ML ML SQ SCH ×2 (07:30→11:30)
--- NOTE | 2021-12-25 08:06 | P.DS ---
Admission Date: 12/20/21 Discharge Date: 12/25/21 Disposition: ROUTINE DISCHARGE Discharge Condition: GOOD Reason for Admission: Chest pain Consultations: 1. Cardiology Hospital Course: DIAGNOSES: # Chest Pain with history of Coronary Artery Disease s/p CABG x 3 # Mild Acute on Chronic Systolic Congestive Heart Failure with Reduced Ejection Fraction (LVEF 23 %) # Atrial Fibrillation s/p [employer] PPM # Hypertension # Hyperlipidemia # Type II Diabetes Mellitus # Subclinical Hypothyroidism # Microscopic Hematuria # S/P Bilateral BKAs HOSPITAL COURSE: Mr. Ernie Rooney is a pleasant 61 year old male with a past medical history significant for coronary artery disease s/p CABG x3, chronic systolic congestive heart failure, atrial fibrillation s/p PPM, type II diabetes mellitus, hypertension, and hyperlipidemia who was admitted to the [facility] on 12/20/2021 for chest pain. He was admitted to the Medicine service for further evaluation. His EKG was reportedly without STEMI criteria. Troponin trend was 17.8 -> 20.9 -> 20.9 -> 19.4. He had a d-dimer returned at 1524. A CT chest angiogram was ordered to ev aluate for acute pulmonary embolism, which revealed, "no evidence of pulmonary thromboembolism. Moderate bilateral pleural effusions with atelectasis both bases." Cardiology was consulted and he was evaluated by Dr. Royal, who has cleared him for discharge. We attempted multiple times to get a [employer] front office representative to interrogate his pacemaker; however, we are unable to successfully do so. Dr. Royal felt that it was not an emergent pacemaker interrogation and cleared him for discharge without interrogation. He stated that he will handle interrogation in clinic as an outpatient. A transthoracic echocardiogram was obtained, which revealed, "severe global hypokinesis. Ejection fraction 23%. Mild pulmonary hypertension." Given his significantly depressed ejection fraction, it was felt that it would be safest if he was discharged with a LifeVest. With the assistance of case management and nursing staff, we are able to obtain a LifeVest for him prior to discharge. During his evaluation, he was incidentally noted to have microscopic hematuria. He was advised that this may sometimes represent an underlying urologic malignancy. He was advised to make an appointment with his PCP for further evaluation. He verbalized understanding and agreed to make this appointment. On 12/25/2021, he was seen on morning rounds and deemed medically stable for discharge. He was discharged with instructions to schedule follow-up appointments with his PCP in 3-5 days and with Cardiology (Dr. Royal) in 5-7 days. He was given the opportunity to ask questions and reported no further questions. Furthermore, all questions were answered to the best of my ability. Today, I personally spent 20 minutes on his case, of which greater than 50% of the time was spent in patient education, counseling, and coordination of care as described above. Physical Exam General: Alert, In no apparent distress, Oriented x3 HEENT: Normocephalic, Mucous membr. moist/pink, EOMI, Sclerae nonicteric Neck: Supple, JVD not distended Respiratory: Clear to auscultation bilaterally Cardiovascular: No edema, Regular rate/rhythm, Normal S1 S2, No gallops, No rubs, No murmurs, Other (Pacemaker noted) Gastrointestinal: Normal bowel sounds, Soft and benign, No tenderness, No rebound, No guarding Musculoskeletal: No clubbing, Other (S/p bilateral below the knee amputations) Integumentary: No rashes Neurological: Normal gait, Normal affect Vital Signs/Physical Exam: Temp Pulse Resp BP Pulse Ox 97.0 F 62 17 109/62 97 12/25/21 04:00 12/25/21 05:37 12/25/21 04:00 12/25/21 05:37 12/25/21 04:00 Laboratory Data at Discharge: WBC 6.2 K/uL (4.3-10.9) 12/25/21 03:31 Hgb 10.8 g/dL (13.6-17.9) L 12/25/21 03:31 Hct 31.4 % (39.6-49.0) L 12/25/21 03:31 Plt Count 245 K/uL (152-406) 12/25/21 03:31 PT 16.1 SECONDS (9.5-12.5) H 12/20/21 19:00 INR 1.45 12/20/21 19:00 Sodium 137 mmol/L (136-145) 12/25/21 03:31 Potassium 4.5 mmol/L (3.5-5.1) 12/25/21 03:31 BUN 20 mg/dL (7-18) H 12/25/21 03:31 Creatinine 1.22 mg/dL (0.55-1.3) 12/25/21 03:31 Glucose 109 mg/dL (74-106) H 12/25/21 03:31 Total Bilirubin 0.5 mg/dL (0.2-1.0) 12/23/21 03:46 AST 20 U/L (15-37) 12/23/21 03:46 ALT 21 U/L (12-78) 12/23/21 03:46 Alkaline Phosphatase 188 U/L (45-117) H 12/23/21 03:46 Triglycerides 67 mg/dL (<150) 12/21/21 03:57 Cholesterol 154 mg/dL (<200) 12/21/21 03:57 HDL Cholesterol 43 mg/dL (40-60) 12/21/21 03:57 Cholesterol/HDL Ratio 3.58 12/21/21 03:57 Home Medications: Tamsulosin [Flomax*] 0.4 mg PO DAILY 11/19/18 lisinopriL [Prinivil*] 2.5 mg PO DAILY 11/19/18 Aspirin Chewable [Aspirin Chewable*] 81 mg PO BEDTIME 05/11/19 ondansetron HCL [Zofran] 4 mg PO Q8H PRN 08/01/19 Atorvastatin Calcium 40 mg PO DAILY 12/21/21 Cyclobenzaprine [Flexeril*] 10 mg PO BID PRN 12/21/21 Dicyclomine [Bentyl*] 20 mg PO QID 12/21/21 Docusate Sodium 100 mg PO BID 12/21/21 Furosemide 40 mg PO BID 12/21/21 Gabapentin 800 mg PO BID 12/21/21 Levothyroxine Sodium [Levothyroxine] 50 mcg PO DAILY 12/21/21 Metformin HCl 500 mg PO DAILY 12/21/21 Metoprolol Succinate 0.5 tab PO DAILY 12/21/21 Omeprazole 20 mg PO DAILY 12/21/21 Spironolactone 25 mg PO DAILY 12/21/21 Tramadol HCl [Ultram] 50 mg PO PRN PRN 12/21/21 Venlafaxine HCl 75 mg PO BID 12/21/21 glipiZIDE [Glipizide] 10 mg PO DAILY 08/02/22 Apixaban [Eliquis] 5 mg PO BID #60 tab 12/25/21 New Medications: Apixaban [Eliquis] 5 mg PO BID #60 tab Physician Discharge Instructions: 1. Please schedule follow-up with your PCP in 3-5 days 2. Please schedule follow-up with Cardiology (Dr. Royal) in 3-5 days Diet: AHA Activity: Fall precautions Followup: Luca Royal MD [ACTIVE - CAN ADMIT] - (Call to schedule follow up appointment.) Time spent managing pt's care (in minutes): 20
[2021-12-25] MEDS: APIXABAN 5 MG TABLET PO SCH (08:19)
[2021-12-25] MEDS: ASPIRIN EC 81 MG TAB PO SCH (08:19)
[2021-12-25] MEDS: lisinopriL 5 MG TAB PO SCH (08:21)
[2021-12-25] MEDS: SPIRONOLACTONE 25 MG TABLET PO SCH (08:21)
[2021-12-25] MEDS: FUROSEMIDE 40 MG TABLET PO SCH (08:21)
[2021-12-25 11:54] VITALS: O2SAT 98
[2021-12-25 12:18] VITALS: BP 109/60; TEMP 97.4
--- NOTE | 2021-12-27 11:36 | CON ---
Date of Consultation: 12/21/2021 Reason For Consultation: Chest pain. History Of Present Illness: Mr. Rooney is a 61-year-old [place] male. He is known to have a history of congestive heart failure, atrial fibrillation, diabetes. His congestive heart failure is systolic. He has a history of hypertension and dyslipidemia. The patient came in with chest pain that has been going on for 2 weeks. He complained of shortness of breath and has had PND, orthopnea , and pedal edema. Denied any palpitations. Denied any syncope. Denied any fever or chills. He is known to have an ejection fraction of 40%-45%. His medications include atorvastatin, lisinopril, sp ironolactone, metoprolol, as well as Lasix. He is also taking Eliquis. He has a history of pacemake r. He is in a paced rhythm. Past Medical History: As stated above. Allergies: NONE. Review of Systems: Negative. Social History: Negative. Family History: Noncontributory. Medications: Listed above. Physical Examination: Vital Signs: Stable. He was in a paced rhythm. Respiratory rate was 19. He was afebrile. His natan n level was 4/10. HEENT: Negative. Neck: Supple with no bruit. Chest: Clear to auscultation and percussion. Cardiac: Regular rhythm and rate with an S3 gallop. No murmurs or rubs. Abdomen: Benign. Extremities: Trace edema. Diagnostic Data: Chest x-ray showed mild congestive heart failure. EKG showed atrial sensed paced r hythm. He had a CTA that showed no evidence of pulmonary embolism. His glucose was 190. Creatinine was normal. Hemoglobin was 10.1. His D-dimer was 1524. Troponin was normal. Impression And Plan: 1.Dykha-lc-eloxace systolic congestive heart failure. 2.Chronic atrial fibrillation, on Eliquis. 3.Status post pacemaker. 4.Dyslipidemia. 5.Diabetes. 6.Hypertension. 7.Hypothyroidism. The patient is on appropriate therapy including beta ulises, spironolactone, lisinopril, aspirin, Li pitor, Eliquis, and insulin. He is also getting Lasix right now. We will obtain an echocardiogram b efore making further decisions. GEOFF/VAMSHI Voice ID: [id number] Report ID: [id number]
== END 2021-12-25 13:45 | disposition home or self-care (01) | DRG 291 ==
LOC: ER 18:34 → ERHOLD 22:17 → 2ND 12-21 21:35 → OBSVTOIN 12-22 12:45
PROVIDERS: ADMIT Internal Medicine; ATTEND Internal Medicine
DX: I11.0 Hypertensive heart disease with heart failure (principal); I50.23 Acute on chronic systolic (congestive) heart failure; I25.10 Atherosclerotic heart disease of native coronary artery without angina pectoris; I48.91 Unspecified atrial fibrillation; E78.5 Hyperlipidemia, unspecified; E11.9 Type 2 diabetes mellitus without complications; E03.8 Other specified hypothyroidism; R31.29 Other microscopic hematuria; I27.20 Pulmonary hypertension, unspecified; K21.9 Gastro-esophageal reflux disease without esophagitis; M79.7 Fibromyalgia; Z95.1 Presence of aortocoronary bypass graft; Z95.0 Presence of cardiac pacemaker; Z89.512 Acquired absence of left leg below knee; Z89.511 Acquired absence of right leg below knee; Z79.01 Long term (current) use of anticoagulants; Z20.822 Contact with and (suspected) exposure to COVID-19
CPT/HCPCS: 36415; 71045; 71275; 80048; 80053; 80061; 80076; 81001; 82947; 83036; 83880; 84439; 84443; 84484; 85025; 85379; 85610; 87811; 93005; 93306; 96374; 96375; 99285; G0378; J1940; J2270; J2405; Q9967

== ENCOUNTER 2021-12-26 22:28 | Observation (INO) | payer OTHER ==
--- OUTSIDE RECORDS SUMMARY | 2021-12-26 22:35 | XMS REPORT | Continuity of Care Document ---
:1960 Author Organization [facility] t Address [address] [place] [address] Care Team Providers Name Role Phone MONIKA HALL MD Primary Care Physician [id number] Attending Clinician Unavailable Harshal Zhu Attending Clinician Unavailable Finn Shah Attending Clinician Unavailable Troy KU Attending Clinician Unavailable Troy Wahl Attending Clinician MIHAELA MARTIN Attending Clinician Unavailable Mihaela Martin NP Attending Clinician Micaela Felicinao RN Attending Clinician Unavailable OC BRYSON Attending Clinician Unavailable ANA MARIA MEZA Attending Clinician Unavailable Wong_Rizwana Attending Clinician Unavailable Fede Carrera Attending Clinician Unavailable Radiology Attending Clinician Unavailable Gina Heath MD Attending Clinician KNOW, DOES_NOT Attending Clinician Unavailable Johnie Montanez Attending Clinician Unavailable ALEXIS COX Attending Clinician Unavailable JACQUELYN MONTES DE OCA Attending Clinician Unavailable NICHELLE PALACIOS Attending Clinician Unavailable [id number] Admitting Clinician Unavailable Nika Martin Admitting Clinician Unavailable KNOW, DOES_NOT Admitting Clinician Unavailable Physician, No Primary or Family Admitting Clinician UnavailTroy Dunne Admitting Clinician Unavailable MIHAELA MARTIN Admitting Clinician Unavailable OC BRYSON Admitting Clinician Unavailable LIZETT WEST Admitting Clinician Unavailable Portillo Admitting Clinician Unavailable Fede Carrera Admitting Clinician Unavailable Johnie Montnaez Admitting Clinician Unavailable ALEXIS COX Admitting Clinician Unavailable NICHELLE PALACIOS Admitting Clinician Unavailable Payers Payer Name Policy Type Policy Number Effective Date Expiration Date S willow [facility] [id number] SERPs [id number] 2018spring 00:00:00 [employer] [id number] 2004 LUCY Frankel [facility] [...] nivers tis tis 0-26 ity of 00:00: [place] 00 Medical Branch Preop Preop Disease Active 2019-05 Univers cardiovasc cardiovasc 0-26 it y of ular exam ular [place] KALYN (acute AKLYN (acute Disease Active 2019-05 U nivers kidney kidney 0-26 ity of injury) injury) 00:00: [place] 00 Medical Branch Left foot Left foot Disease Active 2019-05 Overview: Univers pain pain 0-25 Formattin ity of 00:00: g of this [place] 00 note Medical might be Branch different from the original. 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 Type 2 Type 2 Disease Active 2019- Univers diabetes diabetes 8-29 ity of mellitus mellitus 00:00: [place] without without 00 Medical complicati complicati Br anch on, on, without without long-term long-term current current use of use of insulin insulin Essential Essential Disease Active Uni vers hypertensi hypertensi 01-17 it y of on on 00:00: [place] [id number] Medical Branch Other Other Disease Active Univers hyperlipid hyperlipid 01-17 it y of emia emia 00:00: [place] [facility] Stroke Stroke Disease Active Univers 5-12 ity of 00:00: [place] [facility] Left-sided Left-sided Disease Active U nivers weakness weakness 5- ity of 00:00: [place] [facility] Left sided Left sided Disease Active U nivers numbness numbness - ity of 00:00: [place] [facility] S/P admn S/P admn Disease Active Unive rs tPA in tPA in -11 ity of diff fac diff fac 00:00: [place] w/n last w/n last 00 Medica l 24 hr bef 24 hr bef Bran ch adm to adm to crnt fac crnt fac Unstable Unstable Disease Active Unive rs angina angina 4-10 ity of 00:00: [place] [facility] Atypical Atypical Disease Active Unive rs chest pain chest pain 2-22 it y of 00:00: [place] [facility] Chest pain Chest pain Problem Active [facility] Coronary CAD Problem Active [facility] artery (coronary [facility] disease artery Patient disease) [facility] Diabetic DKA Problem Active [facility] ketoacidos (diabetic Esme es is ketoacidos Patien t es) Medical [place] Hyperglyce Hyperglyce Problem Active [facility] bambi bambi [facility] Hypertensi Hypertensi Problem Active [facility] on on [facility] Patient [facility] Pancreatit Pancreatit Problem Active [facility] is is [facility] Uncontroll Uncontroll Problem Active [facility] ed ed [facility] diabetes diabetes Patien t mellitus mellitus Medica l Center Allergies, Adverse Reactions, Alerts Allergy Allergy Status Severity Reaction(s) Onset Inactive Treating Comm ents Source Name Type Date Date Clinician No Known DA Active U [facility] Allergie 3-22 [place] [facility] 00:00: d 00 [facility] No Known DA Active U 2020-0 [facility] Allergie 3-22 [place] 00:00: d 00 [facility] No Known DA Active U 2017- [facility] Allergie 2-31 Clear s 00:00: Mejia 00 [facility] No Known DA Active U 2017- [facility] Allergie 2-31 Clear s 00:00: Mejia 00 [facility] No Known DA Active U 2018-0 [facility] Allergie 3-26 [place] 00:00: e 00 [facility] NO KNOWN Drug Active Univers ALLERGIE Class ity of S [place] [facility] Social History Social Habit Start Date Stop Date Quantity Comments Source History of Cigarette Smoker Universi ty of tobacco use [place] [facility] History SDOH University o f Alcohol Frequency [place] M edical Branch History SDOH University o f Alcohol Std [place] Medical Drinks Branch History SDOH University o f Alcohol Binge [place] Medic al Branch Exposure to 2021-10-30 2021-11-09 Unable to assess Univers ity of SARS-CoV-2 00:00:00 15:13:[address] [facility] (event) Branch Alcohol intake 2021-11-05 2021-11-05 1.71 /d University of 00:00:00 00:00:[address] [facility] Branch Tobacco Comment 2021-11-03 2021-11-03 quit 15 years ago Un iversity of 00:00:00 00:00:[address] [facility] Branch Education 2021-10-27 2021-10-27 9 University of 00:00:00 00:00:00 [place] [facility] History SDOH 2020-03-16 2020-03-16 3 University o f Financial 00:00:00 00:00:00 [place] [facility] History SDOH Food 2020-03-16 2020-03-16 2 Univers ity of Worry 00:00:00 00:00:00 [place] [facility] History SDOH Food 2020-03-16 2020-03-16 2 Univers ity of Scarcity 00:00:00 00:00:00 [place] [facility] History SDOH 2020-03-16 2020-03-16 1 University o f Transport Med 00:00:00 00:00:00 [place] Medic al Branch History SDOH 2020-03-16 2020-03-16 1 University o f Transport Non-Med 00:00:00 00:00:00 [place] M edical Branch Alcohol Comment 2019-07-18 2019-07-18 quit drinking Malgorzata sity of 00:00:00 00:00:00 2013 but drank [facility] [place] heavily before Branch this Tobacco use and 2018-07-14 2018-07-14 Never used Universit y of exposure 00:00:00 00:00:00 [facility] Sex [birth year] At [birth year] Universit y of 00:00:00 00:00:00 [facility] Smoking Status Start Date Stop Date Source Former smoker 2018-07-14 00:00:00 2018-07-14 00:00:00 [facility] Medications Ordered Filled Start Stop Current [...] at 0215, 1 mL gabapentin 2021- Yes [id number] 300mg Take 1 Univers 300 mg 11-05 capsule by ity of capsule 00:00: 04:59 mouth 3 [place] 00 :00 (three) Medical times Branch daily for 10 days. gabapentin 2021- Yes [id number] 300mg Take 1 Univers 300 mg 11-05 capsule by ity of capsule 00:00: 04:59 mouth 3 [place] 00 :00 (three) Medical times Branch daily for 10 days. aspirin 81 2021- Yes [id number] 81mg Take 1 Univers mg chewable 6-16 07-17 tablet by it y of tablet 00:00: 04:59 mouth [place] 00 :00 daily for Medical 30 days. Branch aspirin 81 2021- Yes [id number] 81mg Take 1 Univers mg chewable 6-16 07-17 tablet by it y of tablet 00:00: 04:59 mouth [place] 00 :00 daily for Medical 30 days. Branch aspirin 81 2021- Yes [id number] 81mg Take 1 Univers mg chewable 6-16 07-17 tablet by it y of tablet 00:00: 04:59 mouth [place] 00 :00 daily for Medical 30 days. Branch proMETHazin Yes [id number] 25mg Take 1 Univers e 25 mg 6-03 tablet by ity of tablet 00:00: mouth [place] 00 every 6 Medical (six) Branch hours as needed for Nausea and Vomiting (N/V). proMETHazin Yes [id number] 25mg Take 1 Univers e 25 mg 6-03 tablet by ity of tablet 00:00: mouth [place] 00 every 6 Medical (six) Branch hours as needed for Nausea and Vomiting (N/V). proMETHazin Yes [id number] 25mg Take 1 Univers e 25 mg 6-03 tablet by ity of tablet 00:00: mouth [place] 00 every 6 Medical (six) Branch hours as needed for Nausea and Vomiting (N/V). fenofibrate 2021- Yes [id number] 134mg Take 1 Univers micronized -19 12- capsule by it y of 134 mg 00:00: 04:59 mouth [place] capsule 00 :00 daily for Medical 30 days. Branch lisinopriL 2021- Yes [id number] 2.5mg Take 1 Univers 2.5 mg -19 12- tablet by ity of tablet 00:00: 04:59 mouth [place] 00 :00 daily for Medical 30 days. Branch fenofibrate 2021- Yes [id number] 134mg Take 1 Univers micronized -19 12- capsule by it y of 134 mg 00:00: 04:59 mouth [place] capsule 00 :00 daily for Medical 30 days. Branch lisinopriL 2021- Yes [id number] 2.5mg Take 1 Univers 2.5 mg -19 12- tablet by ity of tablet 00:00: 04:59 mouth [place] 00 :00 daily for Medical 30 days. Branch fenofibrate 2021- Yes [id number] 134mg Take 1 Univers micronized -19 12- capsule by it y of 134 mg 00:00: 04:59 mouth [place] capsule 00 :00 daily for Medical 30 days. Branch lisinopriL 2021- Yes [id number] 2.5mg Take 1 Univers 2.5 mg -19 12- tablet by ity of tablet 00:00: 04:59 mouth [place] 00 :00 daily for Medical 30 days. Branch furosemide 2021- Yes [id number] 40mg Take 1 Univers 40 mg 5-30 [...] s: atrial fibrillati on calcitrioL 2021- Yes [id number] .5ug Take 1 Univers 0.5 mcg 5-30 06-30 capsule by ity o f capsule 00:00: 04:59 mouth [place] 00 :00 daily for Medical 30 days. Branch insulin NPH 2021- Yes [id number] 5U inject 5 Univers (HUMULIN N 5-30 06-30 Units ity of NPH U-100 00:00: 04:59 [place]ULIN[place] 00 :00 skin every Medic al 100 unit/mL evening Branc h injection for 30 days. atorvastati 2021- Yes [id number] 40mg Take 1 Univers n 40 mg 5-30 -30 tablet by ity of tablet 00:00: 04:59 mouth at [place] 00 :00 bedtime Medical for 30 Branch days. carvediloL 2021- Yes [id number] 3.125mg Take 1 Univers 3.125 mg 5-30 06-30 tablet by ity o f tablet 00:00: 04:59 mouth 2 [place] 00 :00 (two) Medical times [place] daily with meals for 30 days. furosemide 2021- Yes [id number] 40mg Take 1 Univers 40 mg 5-30 06-30 tablet by ity of tablet 00:00: 04:59 mouth [place] 00 :00 every Medical morning Branch and evening for 30 days. apixaban 5 2021- Yes [id number] 5mg Take 1 Univ ers mg tablet 5-30 06-30 tablet by ity of 00:00: 04:59 mouth 2 [place] 00 :00 (two) Medical times [place] daily for 30 days. Indication s: atrial fibrillati on calcitrioL 2021- Yes [id number] .5ug Take 1 Univers 0.5 mcg 5-30 06-30 capsule by ity o f capsule 00:00: 04:59 mouth [place] 00 :00 daily for Medical 30 days. Branch insulin NPH 2021- Yes [id number] 5U inject 5 Univers (HUMULIN N 5-30 06-30 Units ity of NPH U-100 00:00: 04:59 [place] INSULIN[place] 00 :00 skin every Medic al 100 unit/mL evening Branc h injection for 30 days. atorvastati 2021- Yes [id number] 40mg Take 1 Univers n 40 mg 5-30 -30 tablet by ity of tablet 00:00: 04:59 mouth at [place] 00 :00 bedtime Medical for 30 Branch days. carvediloL 2021- Yes [id number] 3.125mg Take 1 Univers 3.125 mg 5-30 -30 tablet by ity o f tablet 00:00: 04:59 mouth 2 [place] 00 :00 (two) Medical times Branch daily with meals for 30 days. furosemide 2021- Yes [id number] 40mg Take 1 Univers 40 mg 5-30 [...] s: atrial fibrillati on calcitrioL 2021- Yes [id number] .5ug Take 1 Univers 0.5 mcg 5-30 -30 capsule by ity o f capsule 00:00: 04:59 mouth [place] 00 :00 daily for Medical 30 days. Branch insulin NPH 2021- Yes [id number] 5U inject 5 Univers (HUMULIN N 5-30 06-30 Units ity of NPH U-100 00:00: 04:59 [place] INSULIN[place] 00 :00 skin every Medic al 100 unit/mL evening Branc h injection for 30 days. atorvastati 2021- Yes [id number] 40mg Take 1 Univers n 40 mg 5-30 -30 tablet by ity of tablet 00:00: 04:59 mouth at [place] 00 :00 bedtime Medical for 30 Branch days. carvediloL 2021- Yes [id number] 3.125mg Take 1 Univers 3.125 mg 5-30 -30 tablet by ity o f tablet 00:00: 04:59 mouth 2 [place] 00 :00 (two) Medical times Branch daily with meals for 30 days. metFORMIN Yes [id number] 500mg Take 1 U nivers 500 mg 3-02 tablet by ity of tablet 00:00: mouth 2 [place] 00 (two) Medical times Branch daily with meals. metFORMIN 0 Yes [id number] 500mg Take 1 U nivers 500 mg 3-02 tablet by ity of tablet 00:00: mouth 2 [place] (two) Medical times Branch daily with meals. metFORMIN 0 Yes [id number] 500mg Take 1 U nivers 500 mg 3-02 tablet by ity of tablet 00:00: mouth 2 [place] (two) Medical times Branch daily with meals. albuterol Yes [id number] 2{puff} Inhale 2 Univers 90 2-21 Puffs 2 ity of mcg/actuati 00:00: (two) [place] on inhaler 00 times Medical daily. Branch collagenase Yes [id number] Use as Univers 250 2-21 directed ity of unit/gram 00:00: by office Juan J as ointment 00 Medical Branch cyclobenzap Yes [id number] 10mg Take 1 Univers rine 10 mg 2-21 tablet by ity of tablet 00:00: mouth [place] (two) Medical times Branch daily as needed for Muscle Spasms. dextrometho Yes [id number] 10mL Take 10 mL Univers rphan-guaif 2-21 [...] Pain (scale 4-6). melatonin 3 0 Yes [id number] 3mg Take 1 Univers mg tablet 2-21 tablet by ity o f 00:00: mouth at [place] 00 bedtime. Medical Branch ondansetron 0 Yes [id number] 4mg Take 1 Univers 4 mg 2-21 tablet by ity of disintegrat 00:00: mouth [place] ing tablet 00 every 8 Medica l (eight) Branch hours as needed for Nausea and Vomiting (N/V). albuterol 0 Yes [id number] 2{puff} Inhale 2 Univers 90 2-21 Puffs 2 ity of mcg/actuati 00:00: (two) [place] on inhaler 00 times Medical daily. Branch collagenase Yes [id number] Use as Univers 250 2-21 directed ity of unit/gram 00:00: by office Juan J as ointment 00 Medical Branch cyclobenzap Yes [id number] 10mg Take 1 Univers rine 10 mg 2-21 tablet by ity of tablet 00:00: mouth 2 [place] 00 (two) Medical times Branch daily as needed for Muscle Spasms. dextrometho Yes [id number] 10mL Take 10 mL Univers rphan-guaif 2-21 [...] for Pain (scale 4-6). melatonin 3 Yes [id number] 3mg Take 1 Univers mg tablet 2-21 tablet by ity o f 00:00: mouth at [place] 00 bedtime. Medical Branch ondansetron 0 Yes [id number] 4mg Take 1 Univers 4 mg 2-21 tablet by ity of disintegrat 00:00: mouth [place] ing tablet 00 every 8 Medica l (eight) Branch hours as needed for Nausea and Vomiting (N/V). albuterol Yes [id number] 2{puff} Inhale 2 Univers 90 2-21 Puffs 2 ity of mcg/actuati 00:00: (two) [place] on inhaler 00 times Medical daily. Branch collagenase Yes [id number] Use as Univers 250 2-21 directed ity of unit/gram 00:00: by office Juan J as ointment 00 Medical Branch cyclobenzap Yes [id number] 10mg Take 1 Univers rine 10 mg 2-21 tablet by ity of tablet 00:00: mouth 2 [place] 00 (two) Medical times Branch daily as needed for Muscle Spasms. dextrometho 0 Yes [id number] 10mL Take 10 mL Univers rphan-guaif 2-21 [...] for Pain (scale 4-6). melatonin 3 Yes [id number] 3mg Take 1 Univers mg tablet 2-21 tablet by ity o f 00:00: mouth at [place] 00 bedtime. Medical Branch ondansetron Yes [id number] 4mg Take 1 Univers 4 mg 2-21 tablet by ity of disintegrat 00:00: mouth [place] ing tablet 00 every 8 Medica l (eight) Branch hours as needed for Nausea and Vomiting (N/V). Aspirin 81 Aspirin 81 2018- No Alexis [address] Mg Tab.chew Mg Tab.chew 10-26 Brooke Frankel 00:00: 00:00 Patient 00 :00 [facility] Diflunisal Diflunisal 2015- No Todd Wynn [address] [facility] (Dolobid) (Dolobid) 01-[facility] 500 Mg 500 Mg 00:00: 00:00 Md Patient Tablet, 500 Tablet, 500 00 :00 M edical Mg Oral Mg Oral [place] Ondansetron Ondansetron 2015- No Todd Wynn [address] [address] Hcl Hcl 01-17 [place] Luke s (Zofran*) 4 (Zofran*) 4 00:00: 00:00 needed for Patient Mg Tablet, Mg Tablet, 00 :00 Nausea M edical 4 Mg 4 Mg [place] Sublingual Sublingual Clopidogrel Clopidogrel Yes 75 Daily [...] [facility]ukes nophen nophen needed for Patie nt ([place] [facility] 10-325 10-325 Center Tablet) 1 [...] Mg 20 Mg [facility] Capsule. Capsule.dr John [facility] Simvastatin Simvastatin Yes [address] 80 Mg 80 Mg [facility] Tablet Tablet Patient [facility] Center Tamsulosin Tamsulosin Yes Daily [facility] Hcl 0.4 Mg Hcl 0.4 Mg Esme es Cap.er.24h Cap.er.24h Pat [facility] Tramadol Tramadol Yes 50 Four [...] 06-17 [facility] Capsule., Capsule., 00:00 Patient :00 [facility] Insulin Insulin No Twice A [facility] [...] 25 Mg Oral 25 Mg Oral :00 [facility] Albuterol Albuterol No 90 As Needed [facility] [...] 00:00 Patient Mg Oral Mg Oral :00 [facility] Methocarbam Methocarbam No [address] ol ol 11-23 Times A [facility] (Robaxin) (Robaxin) 00:00 Day Manjula ent 500 Mg 500 Mg :00 Medical Tablet, 500 Tablet, 500 C enter Mg Oral Mg Oral Metronidazo Metronidazo No [address] le 500 Mg le 500 Mg 11-23 Luke s Tablet, 500 Tablet, 500 00:00 Patient Mg Oral Mg Oral :00 [facility] Nitroglycer Nitroglycer 2015- No .4 As [...] Manjula ent Gm Oral Gm Oral :00 [facility] Temazepam Temazepam [address] (Restoril) (Restoril) 11-23 Theresa kes 30 Mg 30 Mg 00:00 Patient Capsule, 30 Capsule, 30 :00 M edical Mg Oral Mg Oral Center Tizanidine Tizanidine No [address] Hcl 4 Mg Hcl 4 Mg 11-23 [facility]ukes Capsule, 4 Capsule, 4 00:00 Pa tient Mg Oral Mg Oral :00 [facility] Trazodone Trazodone No [address] Hcl 50 Mg Hcl 50 Mg 11-23 Luke s Tablet, 50 Tablet, 50 00:00 Pa tient Mg Oral Mg Oral :00 [facility] Venlafaxine Venlafaxine 2015- No 37.[address] [facility] Hcl 37.5 Mg Hcl 37.5 Mg 11-23 Day [facility] Tablet, Tablet, 00:00 Patient 37.5 Tab 37.5 Tab :00 Medical Oral Oral Center Cyclobenzap Cyclobenzap [address] rine Hcl 10 rine Hcl 10 12-19 Times A [facility] Mg Tablet, Mg Tablet, 00:00 Day Pa tient 10 Mg Oral 10 Mg Oral :00 [facility] ical [place] Gabapentin Gabapentin No [address] 300 Mg 300 Mg 12-19 Times A [facility] Capsule, Capsule, 00:00 Day Patien t 600 Mg Oral 600 Mg Oral :00 M [facility] Pregabalin Pregabalin No 150 Twice [...] Immunizations Ordered Filled Immunization Date Status Comments [facility] e Immunization Name Name Influenza Virus 2021-01-16 Completed Universit y of Vaccine 00:00:00 [facility] Influenza Virus 2021-01-16 Completed Universit y of Vaccine 00:00:00 [facility] Influenza Virus 2021-01-16 Completed Universit y of Vaccine 00:00:00 [facility] SARS-COV-2 COVID-19 2020-10-16 Completed Unive rsity of PEDRO/J&J VACCINE 00:00:00 [facility] SARS-COV-2 COVID-19 2020-10-16 Completed Unive rsity of PEDRO/J&J VACCINE 00:00:00 [facility] SARS-COV-2 COVID-19 2020-10-16 Completed Unive rsity of PEDRO/J&J VACCINE 00:00:00 [facility] Influenza Virus 2020-01-21 Completed Universit y of Vaccine 00:00:00 [facility] Influenza Virus 2020-01-21 Completed Universit y of Vaccine 00:00:00 [facility] Influenza Virus 2020-01-21 Completed Universit y of Vaccine 00:00:00 [facility] Zoster Vaccine 2019-07-17 Completed University of Recombinant 00:00:00 [facility] Zoster Vaccine 2019-07-17 Completed University of Recombinant 00:00:00 [facility] Zoster Vaccine 2019-07-17 Completed University of Recombinant 00:00:00 [facility] Td 2019-03-29 Completed University of 00:00:00 [facility] Td 2019-03-29 Completed University of 00:00:00 [facility] Td 2019-03-29 Completed University of 00:00:00 [facility] Influenza Virus 2018-02-18 Completed Universit y of Vaccine 00:00:00 [facility] Pneumococcal 2018-02-18 Completed University o f Polysaccharide, 00:00:00 [place] Med ical PPSV23 (PNEUMOVAX) [place] Influenza Virus 2018-02-18 Completed Universit y of Vaccine 00:00:00 [facility] Pneumococcal 2018-02-18 Completed University o f Polysaccharide, 00:00:00 [place] Med ical PPSV23 (PNEUMOVAX) [place] Influenza Virus 2018-02-18 Completed Universit y of Vaccine 00:00:00 [facility] Pneumococcal 2018-02-18 Completed University o f Polysaccharide, 00:00:[address] [facility] ical PPSV23 (PNEUMOVAX) [place] Influenza Virus 2008-03-19 Completed Universit y of Vaccine 00:00:00 [facility] Pneumococcal 2008-03-19 Completed University o f Polysaccharide, 00:00:[address] [facility] ical PPSV23 (PNEUMOVAX) Branch Influenza Virus 2008-03-19 Completed Universit y of Vaccine 00:00:[address] [facility] Branch Pneumococcal 2008-03-19 Completed University o f Polysaccharide, 00:00:00 [place] Med ical PPSV23 (PNEUMOVAX) Branch Influenza Virus 2008-03-19 Completed Universit y of Vaccine 00:00:00 [facility] Pneumococcal 2008-03-19 Completed University o f Polysaccharide, 00:00:00 [place] Med ical PPSV23 (PNEUMOVAX) Branch Vital Signs Vital Name Observation Time Observation Value Comments Source Systolic blood 2021-11-09 23:00:00 124 mm[Hg] Univer sity of pressure [facility] Diastolic blood 2021-11-09 23:00:00 69 mm[Hg] Unive rsity of [facility] Heart rate 2021-11-09 23:00:00 72 /min [facility] Respiratory rate 2021-11-09 23:00:00 25 /min [facility] ersity [facility] Oxygen saturation in 2021-11-09 23:00:00 98 /min University of Arterial blood by [place] [employer] Pulse oximetry Branch Body temperature 2021-11-09 20:28:[address] [facility] ersity [facility] Body height 2021-11-09 20:16:00 170.2 cm [facility] Body weight 2021-11-09 20:16:00 71.215 kg [facility] BMI 2021-11-09 20:16:00 24.59 kg/m2 [facility] Systolic blood 2021-11-05 10:00:00 134 mm[Hg] Univer sity of pressure [facility] Diastolic blood 2021-11-05 10:00:00 78 mm[Hg] Unive rsity of pressure [facility] Heart rate 2021-11-05 10:00:00 81 /min [facility] Pl[facility] Body temperature 2021-11-05 08:10:[address] [facility] ersity of [facility] Respiratory rate 2021-11-05 08:00:00 18 /min Univ ersity [facility] Oxygen saturation in 2021-11-05 08:00:00 99 /min University of Arterial blood by [employer] Pulse oximetry Branch Body height 2021-11-05 05:48:00 170.2 cm [facility] Body weight 2021-11-05 05:48:00 71.215 kg [facility] BMI 2021-11-05 05:48:00 24.59 kg/m2 [facility] Procedures Procedure Date / Time Performing Clinician Source Performed XR CHEST 1 VW 2021-11-09 21:07:00 Troy Ku [facility] POCT GLUCOSE 2021-11-09 20:25:00 Troy Ku [facility] (AUTOMATED) [facility] MAGNESIUM 2021-11-09 20:19:00 Troy Ku [facility] TROPONIN I 2021-11-09 20:19:00 Troy Ku [facility] COMP. METABOLIC PANEL 2021-11-09 20:19:00 Troy Ku [facility] ([id number]) [facility] CBC WITH DIFF 2021-11-09 20:19:00 [facility] Center N-TERMINAL PRO-BNP 2021-11-09 20:19:00 Troy Ku [facility] XR CHEST 1 VW 2021-11-05 06:38:35 Mihaela Martin [facility] [id number] 2020-08-11 00:00:00 ALDMO [facility] [id number] 2020-08-11 00:00:00 ALDMO [facility] [id number] 2020-08-11 00:00:00 ALDMO [facility] [id number] 2020-08-11 00:00:00 ALDMO [facility] Computed tomography 2017-10-24 00:00:00 ALEXIS [facility] Patient angiography of [facility] CT angiography of chest 2017-10-23 00:00:00 KHAI WAHL HI [facility] Center Computed tomography of 2017-10-23 00:00:00 KHAI WAHL CH I [facility] Patient brain [facility] radiopaque contrast Computed tomography of 2017-04-04 00:00:00 [...] Clinicians Facility Department ID 2021-06-17 Outpatient 3 [id number] ENCKY MALDONADO [id number] ENCKY 10:24:03 [id number] 2021-06-17 Outpatient 3 [id number] ENCKY REF [id number] ENCKY 10:22:04 60932 2020-08-23 Inpatient HCACL FERNANDO [facility] 17:41:00 6[address]10 [facility] 2020-04-04 Inpatient Marko, HCAMN HCAMN [facility] 14:40:00 Harshal 39948 [facility] 2019-10-15 Inpatient RADHA Shah, HCAPM ENDO [facility] 15:30:00 Finn 25488 [facility] 2021-11-09 2021-11-09 Emergency X KINGS, K [facility] ERT [id number] Univers 15:15:00 18:32:00 ity [facility] 2021-11-09 2021-11-09 Emergency Kings, K [facility] 1.2.840.114 [id number] Univers 15:15:00 18:32:00 Mckenzie PEREZ 350.1.13.10 i ty [facility] 4.2.7.2.686 [facility] [id number] [place] [address] [place] 2021-11-05 2021-11-05 Emergency X [facility] ERT [id number] Univers 00:44:00 06:53:00 MIHAELA baugh [facility] 2021-11-05 2021-11-05 Emergency [facility] [id number] Univers 00:44:00 06:53:00 Mihaela PEREZ 350.1.13.10 ity [facility] 4.2.7.2.686 [facility] [id number] [address] 2021-11-04 2021-11-04 Transition RIVAS Feliciano 1.2.840.114 [id number] Univers 00:00:00 00:00:00 of Jennifer DUQUE 350.1.13.10 it vashti sanz VUBRUCE 4.2.7.2.686 Noe beckett [id number] [facility] [address] 2021-11-02 2021-11-03 Outpatient X ANIARACHEL [facility] [id number] Univers 22:35:00 15:46:00 CO vashti [facility] 2021-10-27 2021-10-29 Outpatient X DERRICK, [facility] DARIUS [id number] Univers 17:41:00 14:03:00 ANA MARIA vashti [facility] 2021-07-21 2021-07-21 Outpatient Wong_H VFP VFP [id number] [facility] 06:58:00 06:58:00 [id number] Family Practic e 2020-10-30 2020-11-05 Inpatient EM DILIP Carrera [facility] [id number] [facility] 16:50:00 13:52:00 Fede 63646 [facility] 2020-10-31 2020-10-31 Outpatient AMELIA Carrera LABO V3042 [facility] 08:22:00 08:22:00 Fede 83526 [facility] 2020-10-28 2020-10-28 Hospital Radiology [facility] 1.2.840.114 [id number] 08:30:17 23:59:00 Encounter Sera 350.1.13.10 [place] 4.2.7.2.686 [place] [id number] 2020-10-06 2020-10-06 [facility] 1.2.840.114 [id number] 909 10:43:51 11:59:29 Visit Gina Perez 350.1.13.10 [place] 4.2.7.2.686 Professaden [id number] [address] 2020-08-19 2020-08-19 Outpatient PEGGY THORPE OPLA [id number] [facility] 07:13:00 07:13:00 DOES_NOT [id number] [facility] 2020-08-10 2020-08-14 Inpatient ANNEL CareyCL INTE.02 [id number] 202 [facility] 09:09:00 18:56:00 Johnie 68995 [facility] 2017-10-23 2017-10-27 Discharged Damien COX [facility] [id number] 17:29:00 16:54:00 Inpatient ALEXIS 90 Luke s [facility] 2017-04-03 2017-04-04 Departed ER TAVON, [facility] [id number] 23:17:00 03:53:00 Emergency LAIRD 56 Luke s Room Patient [facility] 2017-03-05 2017-03-09 Discharged ER PHILIP, [facility] [id number] 06:54:00 10:58:00 Inpatient NICHELLE 44 Luke s (obs) [facility] 2017-01-04 2017-01-05 Discharged [facility] [id number] 10:33:00 18:56:00 Inpatient 61 Luke s (obs) [facility] Results Test Description Test Time Test Comments Results Result Comments Source TROPONIN I 2021-11-09 20:57:59 Test Item Value Reference Range Interpretation Comme nts TROPONIN I (test code = 0.017 ng/mL See_Comment [Au tomated message] The 8327875244) system which ge nerated this result tra [...] biotin. Lab Interpretation Normal (test code = 55495-4) [facility] [id number] 20:54:59 Test Item Value Reference Range Interpretation Comments NT-proBNP (test code 6490 pg/mL See_Comment H [Autom ated = 1967084225) message] The system which generated this result transmitted reference range : <=125. The reference range was not used to interpret this result as normal/abnormal . DIANE (test code = DIANE) Biotin has been reported to cause a negative bias, interpret results relative to patient's use of biotin. Lab Interpretation Abnormal (test code = 63281-8) [facility]2022-[facility]-21 20:46:35 Test Item Value Reference Range Interpretation Comments MAGNESIUM (test code = 1896078799) 1.5 mg/dL 1.7-2.4 L Lab Interpretation (test code = Abnormal 75278-0) [facility]OLIC PANEL (97816)2021-11-09 20:46:34 Test Item Value Reference Range Interpretation Comments NA (test code = 140 mmol/L 135-145 5344955674) K (test code = 3.9 mmol/L 3.5-5.0 3612332237) CL (test code = 111 mmol/L 98-108 H 3522959607) CO2 TOTAL (test code = 16 mmol/L 23-31 L 8082758151) AGAP (test code = 2-16 2250897978) BUN (test code = 14 mg/dL 7-23 9118243017) GLUCOSE (test code = 189 mg/dL 70-110 H 3248834907) CREATININE (test code = 0.66 mg/dL 0.60-1.25 3218660900) TOTAL BILI (test code = 0.8 mg/dL 0.1-1.7 8075194217) CALCIUM (test code = 8.3 mg/dL 8.6-10.6 L 1532417675) T PROTEIN (test code = 6.5 g/dL 6.3-8.2 5401725874) ALBUMIN (test code = 3.3 g/dL 3.5-5.0 L 1514685525) ALK PHOS (test code = 136 U/L 34-122 H 7744806905) ALTv (test code = 18 U/L 5-50 1742-6) AST(SGOT) (test code = 26 U/L 13-40 0159657970) eGFR (test code = mL/min/1.73m2 7277813048) DIANE (test code = DIANE) Association of [...] tests). Lab Interpretation Abnormal (test code = 82433-2) [facility] WITH [id number] 20:33:30 Test Item Value Reference Range Interpretation Comments WBC (test code = See_Comment [Automated 1277-2) message] The sy stem which generated this result transmitted reference range : 4.20 - 10.70 10*3/?L. The reference range was not used to interpret this result as normal/abnormal . RBC (test code = See_Comment [Automated 039-1) message] The sy stem which generated this [...] RDW-SD (test code = 45.4 fL 38.5-51.6 31225-2) RDW-CV (test code = 14.2 % 12.1-15.4 788-0) PLT (test code = See_Comment [Automated 777-3) message] The sy stem which generated this result transmitted reference range : 150 - 328 10*3/ ?L. The reference r batsheva was not used to interpret this result as normal/abnormal . MPV (test code = 9.8 fL 9.8-13.0 93468-6) NRBC/100 WBC (test See_Comment [Automat ed code = 3663407802) message] The system which generated this result transmitted reference range : 0.0 - 10.0 /100 WBCs. The refer ence range was not u sed to interpret th is result as normal/abnormal . NRBC x10^3 (test code <0.01 See_Comment [Auto mated = 9805551029) message] The s ystem which generated this result transmitted reference range : 10*3/?L. The reference range was not used to interpret this result as normal/abnormal . GRAN MAT (NEUT) % 62.3 % (test code = 770-8) IMM GRAN % (test code 0.80 % = 1410868769) LYMPH % (test code = 25.1 % 736-9) MONO % (test code = 6.7 % 5905-5) EOS % (test code = 4.7 % 713-8) BASO % (test code = 0.4 % 706-2) GRAN MAT x10^3(ANC) 4.76 10*3/uL 1.99-6.95 (test code = 5060831941) IMM GRAN x10^3 (test 0.06 10*3/uL 0.00-0.06 code = 6491344457) LYMPH x10^3 (test code 1.92 10*3/uL 1.09-3.23 = 731-0) MONO x10^3 (test code 0.51 10*3/uL 0.36-1.02 = 742-7) EOS x10^3 (test code = 0.36 10*3/uL 0.06-0.53 711-2) BASO x10^3 (test code 0.03 10*3/uL 0.01-0.09 = 704-7) Lab Interpretation Abnormal (test code = 07133-5) [facility] (AUT[facility]ATED)2021-11-09 20:27:39 Test Item Value Reference Range Interpretation Comments POCT GLU (test code = 6171044058) 190 mg/dL 70-110 H Lab Interpretation (test code = Abnormal 27375-6) [facility]ED[facility] [id number] 11:52:00 Test Item Value Reference Range Interpretation Comments GLUCOSE BEDSIDE TESTING (test code = 92 mg/dL 70-110 N GLUBED) GLUCOSE BEDSIDE [id number] 08:05:00 Test Item Value Reference Range Interpretation Comments GLUCOSE BEDSIDE TESTING (test code = 62 mg/dL 70-110 L GLUBED) GLUCOSE BEDSIDE [id number] 20:40:00 Test Item Value Reference Range Interpretation Comments GLUCOSE BEDSIDE TESTING (test code 105 mg/dL 70-110 N = GLUBED) GLUCOSE BEDSIDE [id number] 17:02:00 Test Item Value Reference Range Interpretation Comments GLUCOSE BEDSIDE TESTING (test code 128 mg/dL 70-110 H = GLUBED) GLUCOSE BEDSIDE [id number] 16:37:00 Test Item Value Reference Range Interpretation Comments GLUCOSE BEDSIDE TESTING (test code 105 mg/dL 70-110 N = GLUBED) GLUCOSE BEDSIDE [id number] 08:17:00 Test Item Value Reference Range Interpretation Comments GLUCOSE BEDSIDE TESTING (test code = 88 mg/dL 70-110 N GLUBED) GLUCOSE BEDSIDE [id number] 19:45:00 Test Item Value Reference Range Interpretation Comments GLUCOSE BEDSIDE TESTING (test code 115 mg/dL 70-110 H = GLUBED) GLUCOSE BEDSIDE [id number] 18:13:00 Test Item Value Reference Range Interpretation Comments GLUCOSE BEDSIDE TESTING (test code = 74 mg/dL 70-110 N GLUBED) GLUCOSE BEDSIDE [id number] 17:29:00 Test Item Value Reference Range Interpretation Comments GLUCOSE BEDSIDE TESTING (test code = 44 mg/dL 70-110 LL GLUBED) GLUCOSE BEDSIDE [id number] 12:26:00 Test Item Value Reference Range Interpretation Comments GLUCOSE BEDSIDE TESTING (test code = 96 mg/dL 70-110 N GLUBED) GLUCOSE BEDSIDE [id number] 08:21:00 Test Item Value Reference Range Interpretation Comments GLUCOSE BEDSIDE TESTING (test code = 77 mg/dL 70-110 N GLUBED) GLUCOSE BEDSIDE [id number] 20:12:00 Test Item Value Reference Range Interpretation Comments GLUCOSE BEDSIDE TESTING (test code = 91 mg/dL 70-110 N GLUBED) GLUCOSE BEDSIDE [id number] 16:42:00 Test Item Value Reference Range Interpretation Comments GLUCOSE BEDSIDE TESTING (test code 106 mg/dL 70-110 N = GLUBED) GLUCOSE BEDSIDE [id number] 11:49:00 Test Item Value Reference Range Interpretation Comments GLUCOSE BEDSIDE TESTING (test code = 89 mg/dL 70-110 N GLUBED) GLUCOSE BEDSIDE [id number] 08:22:00 Test Item Value Reference Range Interpretation Comments GLUCOSE BEDSIDE TESTING (test code = 68 mg/dL 70-110 L GLUBED) GLUCOSE BEDSIDE [id number] 20:05:00 Test Item Value Reference Range Interpretation Comments GLUCOSE BEDSIDE TESTING (test code 137 mg/dL 70-110 H = GLUBED) GLUCOSE BEDSIDE [id number] 16:42:00 Test Item Value Reference Range Interpretation Comments GLUCOSE BEDSIDE TESTING (test code = 98 mg/dL 70-110 N GLUBED) GLUCOSE BEDSIDE [id number] 11:13:00 Test Item Value Reference Range Interpretation Comments GLUCOSE BEDSIDE TESTING (test code 118 mg/dL 70-110 H = GLUBED) GLUCOSE BEDSIDE [id number] 07:37:00 Test Item Value Reference Range Interpretation Comments GLUCOSE BEDSIDE TESTING (test code 140 mg/dL 70-110 H = GLUBED) COMPREHENSIVE METABOLIC [id number] 06:34:00 Test Item Value Reference Range Interpretation [...] TOTAL (test code = ALKP) CBC W/AUTO [id number] 06:25:00 Test Item Value Reference Range Interpretation [...] DIFF/SCN CRITERIA = MDIFF) - CT ABDOMEN [id number]/[id number] 03:09:00 [facility] 1960 Sex: M Name: FAITH VANCE : 1960 Age/S: 60 / M [address] Unit #: [id number] Loc: [place] [address] Phys: Fede Carrera DO Acct: [id number] Dis Date: Status: ADM IN PHONE #:[phone] Exam Date: 10/31/20201919 FAX #: Reason: NAUSEA, VOMITING, DIARRHEA EXAMS: CPT: [id number] CT ABDOMEN W/CONTRAST 69034 EXAM: - CT ABDOMEN W/CONTRAST LOCATION: H61 [...] 1 Signed Report (CONTINUED) [facility]: 1960 Age[facility] 60 / M [address] Unit #: [id number] Loc: [place] [address] Phys: Dora robertFede Acct: [id number] Dis Date: Status: ADM IN PHONE #: [phone] Exam Date: 10/31/20201919 FAX #: Reason: NAUSEA, VOMITING, DIARRHEA EXAMS: CPT: [id number] CT ABDOMEN W/CONTRAST 25551 <Continued> small bowel wall thickening. The appendix [...] (308) tMATTR.TH15 Orig Print D/T: S: 11/01/2020 (466) PAGE 2Signed ReportGLUCOSE BEDSIDE [id number] 21:34:00 Test Item Value Reference Range Interpretation Comments GLUCOSE BEDSIDE TESTING (test code 161 mg/dL 70-110 H = GLUBED) GLUCOSE BEDSIDE [id number] 17:32:00 Test Item Value Reference Range Interpretation Comments GLUCOSE BEDSIDE TESTING (test code 136 mg/dL 70-110 H = GLUBED) - XR ABDOMEN 1 [id number] 12:44:00 [facility] 1960 Sex: M Name: FAITH VANCE [facility] : 1960 Age/S: 60 / M [address] Unit #: [id number] Loc: [place] [address] Phys: DorajakyFede cheung DO Acct: [id number] Dis Date: Status: ADM IN PHONE #: [phone] Exam Date: 10/31/2020 1227 FAX #: Reason: Abdominal pain in the lower qudarants EXAMS: CPT: [id number] XR ABDOMEN 1 V 77904 Fluoro Time: DAP (Gy m2): Air Kerma [...] DO PAGE 1Signed Report Name: FAITH VANCE [facility] : 1960 Age/S: 60 / M [address] Unit #: [id number] Loc: [place] [address] Phys: DebiFede DO Acct: [id number] Dis Date: Status: ADM IN PHONE #: [phone] Exam Date: 10/31/2020 1227 FAX #: Reason: Abdominal pain in the lowerqudarants EXAMS: CPT: [id number] XR ABDOMEN 1 V 57563 Fluoro Time: DAP (Gy m2): Air Kerma (mGy): <C ontinued> Technologist: Cecelia Arias RT(R) Trnscb Date/Time: 10/31/2020 (2926) tRITA.AGV Orig Print D/T: S: 10/31/2020 (6105) PAGE 2 Signed Report GLUCOSE BEDSIDE [id number] 11:58:00 Test Item Value Reference Range Interpretation Comments GLUCOSE BEDSIDE TESTING (test code 105 mg/dL 70-110 N = GLUBED) GLUCOSE BEDSIDE [id number] 08:01:00 Test Item Value Reference Range Interpretation Comments GLUCOSE BEDSIDE TESTING (test code 106 mg/dL 70-110 N = GLUBED) [id number] 22:46:00 Test Item Value Reference Range Interpretation [...] yby method. Completed by Nursing: NOGLUCOSE BEDSIDE [id number] 21:55:00 Test Item Value Reference Range Interpretation Comments GLUCOSE BEDSIDE TESTING (test code 119 mg/dL 70-110 H = GLUBED) [id number] 19:33:00 Test Item Value Reference Range Interpretation [...] method. Completed by Nursing: Denise 2019 nCoV [id number] 18:46:00 Test Item Value Reference Range Interpretation Comments Coronavirus 2018 nCoV Negative Negative Per ma nufacturer, Bedside (test code = negativ e results should [id number]) be treated aspresumptive a nd, if inconsistent [...] with COVID-19. Spec Comments: NNT PRO-BRAIN NATRIURETIC [id number] 15:51:00 Test Item Value Reference Range Interpretation Comments NT PRO-BRAIN NATRIURETIC PEPTI 6079 PG/ML 0-100 H (test code = PROBNP) Completed by Nursing: [id number] 15:51:00 Test Item Value Reference Range Interpretation [...] yby method. Completed by Nursing: NOBASIC METABOLIC [id number] 15:51:00 Test Item Value Reference Range Interpretation [...] Completed by Nursing: NO- XR CHEST 1 [id number] 15:42:00 [facility] : 1960 Sex: M Name: FAITH VANCE [facility] : 1960 Age/S: 60 / M [address] Unit #: [id number] Loc: [place] [address] Phys: Todd Jacobo MD Acct: [id number] Dis Date: Status: PRE ER PHONE #: [phone] Exam Date: 10/30/2020 1526 FAX #: Reason: chest pain EXAMS: CPT: [id number] XR CHEST 1V 92305 Fluoro Time: DAP (Gy m2): Air Kerma [...] Lopez Ruiz M.D. CC: Nika Martin MD; Tdod Jacobo MD PAGE 1 Signed Report Name: FAITH VANCE : 1960 Age/S: 60 / M [address] Unit #: [id number] Loc: [place] [address] Phys: Todd Jacobo MD Acct: [id number] Dis Date: Status: PRE ER PHONE #: [phone] Exam Date: 10/30/2020 1524 FAX #: Reason: chest pain EXAMS: CPT: [id number] XR CHEST 1 V 19709 Fluoro Time: DAP (Gy m2): Air Kerma (mGy): <Continued> Technologist: Kim Andrews RT(R)(CT) Trnscb Date/Time: 10/30/2020 (1542) t.SDR.RB24 Orig Print D/T: S: 10/30/2020 (5519) PAGE 2 Signed ReportCBC W/O [id number] 15:31:00 Test Item Value Reference Range Interpretation [...] 9.70 fL 7.0-9.6 H MPV) BASIC METABOLIC [id number] 21:42:00 Test Item Value Reference Range Interpretation [...] 9.6 mg/dL 8.0-10.5 N CA) HEPATIC FUNCTION [id number] 21:42:00 Test Item Value Reference Range Interpretation [...] 114 IUnit/L 20-125 N code = ALKP) [id number] 21:42:00 Test Item Value Reference Range Interpretation Comments LIPASE (test code = LIP) 70 U/L 13-57 H [id number] 21:42:00 Test Item Value Reference Range Interpretation [...] by method. UA RFLX MICR CULT IF [id number] 21:37:00 Test Item Value Reference Range Interpretation [...] INDWELLING CATH (CEDENO)Cath Status: Under 72 hoursPROTHROMBIN [id number] 21:35:00 Test Item Value Reference Range Interpretation [...] (to prevent recurrent infar ct). THROMBOPLASTIN TIME [id number] 21:35:00 Test Item Value Reference Range Interpretation Comments THROMBOPLASTIN TIME 41.7 Seconds 25.0-39.5 H Therape utic Range: PARTIAL (test code = 50.4 - 88.3 Seconds PTT) Effective 09/04/2018 CBC W/AUTO [id number] 21:29:00 Test Item Value Reference Range Interpretation [...] = MDIFF) - CT ABD PELVIS W/O [id number] 20:49:00 [facility] : 1960 Sex: M Name: FAITH VANCE [facility] [place] : 1960 Age/S: 60 / M [address] [place] [address] Unit #: [id number] Loc: [place] [address] Phys: Gisel Eugene [facility] Acct: [id number] Dis Date: Status: REG ERPHONE #: [phone] Exam Date: 08/23/20202024 FAX #: [phone] Reason: DIFFUSE ABDOMINAL PAIN EXAMS: CPT CODE: [id number] CT ABD PELVIS W/O CONT 07146 Clinical indication: Diffuse abdominal pain.Contrast - No [...] 1 Signed Report (CONTINUED) Name: FAITH VANCE [facility] [place] : 1960 Age/S: 60 / M [address] [place] [address] Blvd Unit #: [id number] Loc: [place], [place] [address] Phys: Gisel Eugene Acct: [id number] Dis Date: Status: REG ER PHONE #: [phone] Exam Date: 08/23/20202024 FAX #: [phone] Reason: DIFFUSE ABDOMINAL PAIN EXAMS: CPT CODE: [id number] CT ABD PELVIS W/O CONT 65191 <Continued> Peritoneum/Other: No extraluminal air. No extraluminal [...] 08/23/2020 (2051) PAGE 2 Signed ReportBASIC METABOLIC [id number] 07:51:00 Test Item Value Reference Range Interpretation [...] >3 months. [Automated mess age] The system [employer] generated this result transmitted ref erence range: >=60. Th e reference range was not used to int erpret this result as normal/abnormal . CREATININE (test 1.20 mg/dL 0.7-1.3 N code = CREAT) BUN/CREATININE RATIO 22.1 10-20 H (test code = BUN/CREA) CALCIUM (test code = 8.6 mg/dL 8.5-10.1 N CA) [id number] 16:58:00 Test Item Value Reference Range Interpretation Comments GLUBED (test code = 159 MG/DL 70-110 H Performe d by certified GLUBED) rotary 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 at [facility] [id number] 11:58:00 Test Item Value Reference Range Interpretation Comments GLUBED (test code = 149 MG/DL 70-110 H Performe d by certified GLUBED) rotary 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 at [facility] BASIC METABOLIC [id number] 08:00:00 Test Item Value Reference Range Interpretation [...] 9.9 mg/dL 8.0-10.5 N CA) CBC W/AUTO [id number] 07:08:00 Test Item Value Reference Range Interpretation [...] DIFF REQUIRED (test code NO = MDIFF) [id number] 05:21:00 Test Item Value Reference Range Interpretation Comments GLUBED (test code = 150 MG/DL 70-110 H Performe d by certified GLUBED) rotary 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 at [facility] [id number] 21:13:00 Test Item Value Reference Range Interpretation Comments GLUBED (test code = 129 MG/DL 70-110 H Performe d by certified GLUBED) rotary 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 at [facility] [id number] 16:48:00 Test Item Value Reference Range Interpretation Comments GLUBED (test code = 116 MG/DL 70-110 H Performe d by certified GLUBED) rotary 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 at [facility] [id number] 12:18:00 Test Item Value Reference Range Interpretation Comments GLUBED (test code = 136 MG/DL 70-110 H Performe d by certified GLUBED) rotary 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 at [facility] [id number] 12:18:00 Test Item Value Reference Range Interpretation Comments GLUBED (test code = 151 MG/DL 70-110 H Performe d by certified GLUBED) rotary 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 at [facility] CBC W/AUTO [id number] 07:32:00 Test Item Value Reference Range Interpretation [...] (test code NO = MDIFF) BASIC METABOLIC [id number] 07:29:00 Test Item Value Reference Range Interpretation [...] code = 9.0 mg/dL 8.0-10.5 N CA) [id number] 05:19:00 Test Item Value Reference Range Interpretation Comments GLUBED (test code = 135 MG/DL 70-110 H Performe d by certified GLUBED) rotary 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 at [facility] [id number] 20:31:00 Test Item Value Reference Range Interpretation Comments GLUBED (test code = 189 MG/DL 70-110 H Performe d by certified GLUBED) rotary 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 at [facility] [id number] 17:41:00 Test Item Value Reference Range Interpretation Comments GLUBED (test code = 140 MG/DL 70-110 H Performe d by certified GLUBED) rotary 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 at [facility] - CTA CHEST FOR [id number] 13:48:00 [facility] 1960 Sex: M Name: FAITH VANCE [facility] : 1960 Age/S: 60 / M [address] [place] [address] Unit #: [id number] Loc: [place] [address] Phys: Gina Gonzalez HUSKER OPERATOR Acct: [id number] Dis Date: Status: ADM IN PHONE #: [phone] Exam Date: 08/12/2020 09 FAX #: [phone] Reason: CP, elevated D-dimer EXAMS: CPT CODE: [id number] [place] [address] PROCEDURE: CTA CHEST INDICATION: CP, elevated D-dimer; [...] 1 Signed Report (CONTINUED) Name: FAITH VANCE [facility] : 1960 Age/S: 60 / M [address] [place] [address] Blvd Unit #: [id number] Loc: [place] [address] Phys: Gina Gonzalez HUSKER OPERATOR Acct: [id number] Dis Date: Status: ADM IN PHONE #: [phone] Exam Date: 08/12/2020911 FAX #: [phone] Reason: CP, elevated D-dimer EXAMS: CPT CODE: [id number] [place] [address] <Continued> contrast enhancement. No acute abnormality demonstrated. MUSCULOSKELETAL: Healed median sternotomy. No acute skeletal abnormality. IMPRESSION: 1. Negative for pulmonary embolic disease within limitations noted. 2. Atherosclerosis. 3. Coronary arterial calcifications with prior coronary arterial stents and CABG.4. Interstitial edema. No consolidation. 5. Small bilateral pleural effusions. SL: [id number] at 1348 Reported and signed by: Christiano Piña M.D. CC: Johnie Montanez MD; Gina Gonzalez NP; Nika Martin MD Technolo gist:Kate Camacho RT(R)(CT) CTDI: DLP: Trnscb Date/Time: 08/12/2020 (1348) [email or web address] Orig Print D/T: S: 08/12/2020 (3524) PAGE 2 Signed ReportGLUBED 2020-08-12 11:38:00 Test Item Value Reference Range Interpretation Comments GLUBED (test code = 146 MG/DL 70-110 H Performe d by certified GLUBED) rotary 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 at [facility] CBC W/AUTO [id number] 09:17:00 Test Item Value Reference Range Interpretation [...] (test code NO = MDIFF) BASIC METABOLIC [id number] 08:28:00 Test Item Value Reference Range Interpretation [...] code = 8.3 mg/dL 8.0-10.5 N CA) [id number] 08:28:00 Test Item Value Reference Range Interpretation Comments PHOSPHOROUS (test code = PHOS) 3.6 MG/DL 2.5-4.9 N [id number] 08:28:00 Test Item Value Reference Range Interpretation Comments MAGNESIUM (test code = MAG) 1.94 mg/dL 1.80-2.40 N [id number] 07:16:00 Test Item Value Reference Range Interpretation Comments GLUBED (test code = 170 MG/DL 70-110 H Performe d by certified GLUBED) rotary 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 at [facility] [id number] 07:16:00 Test Item Value Reference Range Interpretation Comments GLUBED (test code = 137 MG/DL 70-110 H Performe d by certified GLUBED) rotary 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 at [facility] [id number] 17:01:00 Test Item Value Reference Range Interpretation Comments GLUBED (test code = 88 MG/DL 70-110 N Performe d by certified GLUBED) rotary 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 at [facility] [id number]-[id number] 16:56:00 Test Item Value Reference Range Interpretation Comments ACT-ISTAT (test code 186 SEC 74-137 H Perform ed by certified = ACTI) rotary 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 at [facility] [id number]-[id number] 15:03:00 Test Item Value Reference Range Interpretation Comments ACT-ISTAT (test code 235 SEC 74-137 H Perform ed by certified = ACTI) rotary 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 at [facility] [id number] 11:33:00 Test Item Value Reference Range Interpretation Comments GLUBED (test code = 97 MG/DL 70-110 N Performe d by certified GLUBED) rotary 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 at [facility] [id number] 06:54:00 Test Item Value Reference Range Interpretation Comments GLUBED (test code = 136 MG/DL 70-110 H Performe d by certified GLUBED) rotary 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 at [facility] BASIC METABOLIC [id number] 06:00:00 Test Item Value Reference Range Interpretation [...] COMMENTS: To be done morning of Heart HteyTEISKAXGPTY0058-29-56 06:00:00 Test Item Value Reference Range Interpretation Comments PHOSPHOROUS (test code = PHOS) 4.1 MG/DL 2.5-4.9 N COMMENTS: To be done morning of Heart [id number] 06:00:00 Test Item Value Reference Range Interpretation Comments MAGNESIUM (test code = MAG) 1.74 mg/dL 1.80-2.40 L COMMENTS: To be done morning of Heart CathTHROMBOPLASTIN TIME [id number] 05:55:00 Test Item Value Reference Range Interpretation Comments THROMBOPLASTIN TIME 37.9 Seconds 25.0-39.5 N Therape utic Range: PARTIAL (test code = 50.4 - 88.3 Seconds PTT) Effective 09/04/2018 CBC W/AUTO [id number] 05:44:00 Test Item Value Reference Range Interpretation [...] COMMENTS: To be done morning of Heart [id number] 05:44:00 Test Item Value Reference Range Interpretation Comments GLUBED (test code = 92 MG/DL 70-110 N Performe d by certified GLUBED) rotary 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 at [facility] HGBA1C%2020-08-10 17:22:00 Test Item Value Reference Range Interpretation Comments HGBA1C% (test code = HGBA1C%) 6.6 %A1C 4.8-6.0 H [id number] 17:17:00 Test Item Value Reference Range Interpretation Comments GLUBED (test code = 118 MG/DL 70-110 H Performe d by certified 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 COVID 19 Asymptomatic IH [id number] 11:35:00 Test Item Value Reference Range Interpretation [...] y tests. COMMENTS: If not done this jskxpvchiUOVKIKUK-[id number] 11:31:00 Test Item Value Reference Range Interpretation [...] titative results may babak y by method. [id number] 11:28:00 Test Item Value Reference Range Interpretation [...] to interpret this result as normal/abnormal . 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 [facility] B-TYPE NATRIURETIC [id number] 08:19:00 Test Item Value Reference Range Interpretation Comments B-TYPE NATRIURETIC PEPTIDE (test 508.0 PG/ML 0-100 H code = BNP) BASIC METABOLIC [id number] 08:11:00 Test Item Value Reference Range Interpretation [...] 9.1 mg/dL 8.0-10.5 N CA) HEPATIC FUNCTION [id number] 08:11:00 Test Item Value Reference Range Interpretation [...] 174 IUnit/L 20-125 H code = ALKP) [id number] 08:11:00 Test Item Value Reference Range Interpretation Comments MAGNESIUM (test code = MAG) 1.80 mg/dL 1.80-2.40 N [id number] 08:11:00 Test Item Value Reference Range Interpretation [...] may babak y by method. BASIC METABOLIC [id number] 08:09:00 Test Item Value Reference Range Interpretation [...] code = CA) mg/dL 8.0-10.5 HEPATIC FUNCTION [id number] 08:09:00 Test Item Value Reference Range Interpretation Comments TOTAL PROTEIN (test code = PROT) g/dL 6.4-8.2 ALBUMIN (test code = ALB) g/dL 3.4-5.0 BILIRUBIN TOTAL (test code = BILT) mg/dL 0.0-1.0 BILIRUBIN DIRECT (test code = BILD) MG/DL 0.0-0.30 SGOT/AST (test code = AST) IUnit/L 15-37 SGPT/ALT (test code = ALT) IUnit/L 30-65 ALKALINE PHOSPHATASE TOTAL (test IUnit/L 20-125 code = ALKP) [id number] 08:09:00 Test Item Value Reference Range Interpretation Comments MAGNESIUM (test code = MAG) mg/dL 1.80-2.40 [id number] 08:09:00 Test Item Value Reference Range Interpretation [...] results may babak y by method. PROTHROMBIN [id number] 08:06:00 Test Item Value Reference Range Interpretation [...] (to prevent recurrent infar ct). THROMBOPLASTIN TIME [id number] 08:06:00 Test Item Value Reference Range Interpretation Comments THROMBOPLASTIN TIME 44.5 Seconds 25.0-39.5 H Therape utic Range: PARTIAL (test code = 50.4 - 88.3 Seconds PTT) Effective 09/04/2018 CBC W/AUTO [id number] 07:58:00 Test Item Value Reference Range Interpretation [...] NO = MDIFF) - XR CHEST 1 [id number] 07:57:00 [facility] 1960 Sex: M FAX: Todd Jacobo MD [phone] [place]: St: REG FAX: Martínez Dash NP [phone] Name: FAITH VANCE [facility] : 1960 Age/S: 60/M [address] [place] [address] Unit #: [id number] Loc: [place] [address] Phys: Martínez Dash NP Acct: [id number] Dis Date: Status: REG ER PHONE #: [phone] Exam Date: 08/10/2020 [facility] FAX #: [phone] Reason: Chest Pain EXAMS: CPT CODE: [id number] XR CHEST 1 V 67054 Chest single view 08/10/2020 HISTORY: Chest pain. Comparison is made to 05/21/2018 FINDINGS: Pacemaker and midline sternotomy wires are stable. The lungs are hypoinflated. No consolidation or pleural effusion is present. No vascular congestion or interstitial edema is present. Heart size is mildly enlarged. Aorta is unchanged. IMPRESSION: Hypoinflated lungs. No acute cardiopulmonary process. SL:[id number] at 0757 Reported and signed by: Khai Kruse M.D. CC: Todd Jacobo MD; Martínez Dash NP Technologist: Juliane Montemayor RT(R) Trnscrd Date/Time/By: 08/10/2020 (0755) : By: [email or web address] Orig Print D/T: S: 08/10/2020 (0800) PAGE 1 Signed Report COMPREHENSIVE METABOLIC [id number] 18:02:00 Test Item Value Reference Range Interpretation [...] 50-136 H TOTAL (test code = ALKP) [id number] 18:02:00 Test Item Value Reference Range Interpretation Comments AMYLASE (test code = SERGIO) 82 Unit/L 25-115 N [id number] 18:02:00 Test Item Value Reference Range Interpretation Comments LIPASE (test code = LIP) 185 Unit/L 114-286 N COMPREHENSIVE METABOLIC [id number] 17:56:00 Test Item Value Reference Range Interpretation [...] TOTAL Unit/L 50-136 (test code = ALKP) [id number] 17:56:00 Test Item Value Reference Range Interpretation Comments AMYLASE (test code = SERGIO) Unit/L 25-115 [id number] 17:56:00 Test Item Value Reference Range Interpretation Comments LIPASE (test code = LIP) 185 Unit/L 114-286 N CBC W/AUTO [id number] 17:46:00 Test Item Value Reference Range Interpretation [...] CRITERIA MDIFF) - CT ABD PELVIS W/O [id number] 17:46:00 Name: FAITH VANCE [facility] : 1960 Age/S: 58 / M [address] [address] [place] Unit #: [id number] Loc: [place] [address] Phys: Nila Chester MD Acct: [id number] Dis Date: Status: REG ER PHONE #: [phone] Exam Date: 01/03/2019 1730 FAX #: Reason: llq EXAMS: CPT: [id number] CT ABDPELVIS W/O CONT 60937 Location of dictation: B2 CT abdomen and [...] 1 Signed Report (CONTINUED) Name: FAITH VANCE [facility] : 1960 Age/S: 58 / M [address] [facility] [place] Unit #: [id number] Loc: [place] [address] Phys: Nila Chester MD Acct: [id number] Dis Date: Status: REG ER PHONE #: [phone] Exam Date: 01/03/2019 1730 FAX #: Reason: llq EXAMS: CPT: [id number] CT ABD PELVIS W/O CONT 53158 <Continued> at 1746 Reported and signed by: Renuka Willett M.D. CC: Nila Chester MD Technologist:Tavon Jurado, RT(R)(CT)(MRI) CTDI: DLP: Trnscb Date/Time: 01/03/2019 (497) JhonPXC Orig Print D/T: S: 01/03/2019 (7868) PAGE 2 Signed ReportBedside [id number] 11:47:00 Test Item Value Reference Range Interpretation Comments Bedside Glucose (test code = 30394-3) 155 70-120 H Meter ID: [id number] [facility] Allianceodium Styqy8620-18-36 08:31:00 Test Item Value Reference Range Interpretation Comments Sodium Level (test code = 2951-2) 139 136-145 [facility] CenterPot[facility] Metjo5344-95-77 08:31:00 Test Item Value Reference Range Interpretation Comments Potassium Level (test code = 2823-3) 4.0 3.5-5.1 [facility] CenterChloride [id number] 08:31:00 Test Item Value Reference Range Interpretation Comments Chloride Level (test code = 2075-0) 106 98-107 [facility] CenterCarbon Dioxide [id number] 08:31:00 Test Item Value Reference Range Interpretation Comments Carbon Dioxide Level (test code = 8-9) [facility] CenterAnion [id number] 08:31:00 Test Item Value Reference Range Interpretation Comments Anion Gap (test code = 38157-1) 12.0 8-16 [facility] CenterBlood Urea Qgdycbkl1713-29-97 08:31:00 Test Item Value Reference Range Interpretation Comments Blood Urea Nitrogen (test code = 12-14 3094-0) [facility] CenterCreatinine2018-06-08 08:31:00 Test Item Value Reference Range Interpretation Comments Creatinine (test code = 2160-0) 0.72 0.72-1.25 [facility] CenterBUN/Creatinine Fahuc6235-35-08 08:31:00 Test Item Value Reference Range Interpretation Comments BUN/Creatinine Ratio (test code = 11-13 3097-3) [facility] CenterEstimat Glomerular Filtration Larc0705-29-36 08:31:00 Test Item Value Reference Range Interpretation Comments Estimat Glomerular Filtration Rate 60- >60 (test code = 42828-8) Ranges were taken from the National Kidney Disease Education Program and the National Kidney Foundation literature.Reference ranges:60 or greater: Sljqyt72- 59 (for 3 consecutive months): Chronic kidneydisease 15 or less: Kidney failure [facility] CenterGlucose Mmrky1162-16-95 08:31:00 Test Item Value Reference Range Interpretation Comments Glucose Level (test code = JTB8642) 195 74-118 H [facility] CenterCalcium Ocuhq8609-21-90 08:31:00 Test Item Value Reference Range Interpretation Comments Calcium Level (test code = 45603-3) 9.0 8.4-10.2 [facility] CenterWhite Blood Idzvi0376-76-99 08:12:00 Test Item Value Reference Range Interpretation Comments White Blood Count (test code = 6690-2) 6.06 4.8-10.8 [facility] CenterRed Blood Yqust1057-48-19 08:12:00 Test Item Value Reference Range Interpretation Comments Red Blood Count (test code = 789-8) 4.22 4.3-5.7 L [facility] CenterHemoglobin2018-06-08 08:12:00 Test Item Value Reference Range Interpretation Comments Hemoglobin (test code = 93878-4) 12.5 14.0-18.0 L [facility] CenterHematocrit2018-06-08 08:12:00 Test Item Value Reference Range Interpretation Comments Hematocrit (test code = 4544-3) 36.2 38.2-49.6 L [facility] CenterMean Corpuscular Sxlrqw5107-12-01 08:12:00 Test Item Value Reference Range Interpretation Comments Mean Corpuscular Volume (test code = 85.8 81-99 787-2) [facility] CenterMean Corpuscular Cyenvbnnuu3694-17-13 08:12:00 Test Item Value Reference Range Interpretation Comments Mean Corpuscular Hemoglobin (test code 29.6 28-32 = 785-6) [facility] CenterMean Corpuscular Hemoglobin Njtherw7903-57-63 08:12:00 Test Item Value Reference Range Interpretation Comments Mean Corpuscular Hemoglobin Concent 34.5 31-35 (test code = 786-4) [facility] CenterRed Cell Distribution Ayblh0449-32-83 08:12:00 Test Item Value Reference Range Interpretation Comments Red Cell Distribution Width (test code 14.2 11.7-14.4 = 44686-6) [facility] CenterPlatelet Uqgqy3661-63-33 08:12:00 Test Item Value Reference Range Interpretation Comments Platelet Count (test code = 777-3) 263 140-360 [facility] CenterNeutrophils (%) (Auto)2017-10-27 08:12:00 Test Item Value Reference Range Interpretation Comments Neutrophils (%) (Auto) (test code = 51.2 38.7-80.0 56368-1) [facility] CenterLymphocytes (%) (Auto)2017-10-27 08:12:00 Test Item Value Reference Range Interpretation Comments Lymphocytes (%) (Auto) (test code = 33.7 18.0-39.1 736-9) [facility] CenterMonocytes (%) (Auto)2017-10-27 08:12:00 Test Item Value Reference Range Interpretation Comments Monocytes (%) (Auto) (test code = 9.1 4.4-11.3 5905-5) [facility] CenterEosinophils (%) (Auto)2017-10-27 08:12:00 Test Item Value Reference Range Interpretation Comments Eosinophils (%) (Auto) (test code = 4.8 0.0-6.0 713-8) [facility] CenterBasophils (%) (Auto)2017-10-27 08:12:00 Test Item Value Reference Range Interpretation Comments Basophils (%) (Auto) (test code = 0.7 0.0-1.0 706-2) [facility] CenterIM GRANULOCYTES %2017-10-27 08:12:00 Test Item Value Reference Range Interpretation Comments IM GRANULOCYTES % (test code = IM 0.5 0.0-1.0 GRANULOCYTES %) [facility] CenterNeutrophils # (Auto)2017-10-27 08:12:00 Test Item Value Reference Range Interpretation Comments Neutrophils # (Auto) (test code = 3.1 2.1-6.9 751-8) [facility] CenterLymphocytes # (Auto)2017-10-27 08:12:00 Test Item Value Reference Range Interpretation Comments Lymphocytes # (Auto) (test code = 2.0 1.0-3.2 04907-4) [facility] CenterMonocytes # (Auto)2017-10-27 08:12:00 Test Item Value Reference Range Interpretation Comments Monocytes # (Auto) (test code = 742-7) 0.6 0.2-0.8 [facility] CenterEosinophils # (Auto)2017-10-27 08:12:00 Test Item Value Reference Range Interpretation Comments Eosinophils # (Auto) (test code = 0.3 0.0-0.4 711-2) [facility] CenterBasophils # (Auto)2017-10-27 08:12:00 Test Item Value Reference Range Interpretation Comments Basophils # (Auto) (test code = 704-7) 0.0 0.0-0.1 [facility] CenterAbsolute Immature Granulocyte ([id number] 08:12:00 Test Item Value Reference Range Interpretation Comments Absolute Immature Granulocyte (auto 0.03 0-0.1 (test code = Absolute Immature Granulocyte (auto) [facility] CenterCreatine Kinase [id number] 15:14:00 Test Item Value Reference Range Interpretation Comments Creatine Kinase MB (test code = 3.90 0-5.0 18235-6) [facility] CenterTroponin [id number] 15:14:00 Test Item Value Reference Range Interpretation Comments Troponin I (test code = QQC5452) 0.054 0-0.300 [facility] CenterCreatine Wcfhkl9580-25-69 15:07:00 Test Item Value Reference Range Interpretation Comments Creatine Kinase (test code = 2157-6) 297 30-200 H [facility] CenterHemoglobin A1c Tufqasg8748-66-06 08:04:00 Test Item Value Reference Range Interpretation Comments Hemoglobin A1c Percent (test code = 12.6 4.0-7.0 H Hemoglobin A1c Percent) [facility] CenterTriglycerides [id number] 06:57:00 Test Item Value Reference Range Interpretation Comments Triglycerides Level (test code = 200 0-149 H 2571-8) [facility] CenterCholesterol Iivuo8011-28-36 06:57:00 Test Item Value Reference Range Interpretation Comments Cholesterol Level (test code = 2093-3) 239 0-199 H Less than 200 mg/dL Low Lcgg476 - 239 mg/dL Borderline Ikzg152 mg/dl and greater High RiskMatagorda Regional Medical CenterLDL Haebmsalyux1271-43-36 06:57:00 Test Item Value Reference Range Interpretation Comments LDL Cholesterol (test code = 2089-1) 164 60-130 H [facility] CenterHDL Kgargsugfro3204-51-01 06:57:00 Test Item Value Reference Range Interpretation Comments HDL Cholesterol (test code = 2085-9) 35 40-60 L [facility] CenterCholesterol/HDL Jlpxu9277-81-07 06:57:00 Test Item Value Reference Range Interpretation Comments Cholesterol/HDL Ratio (test code = 6.8 3.9-4.7 H 9830-1) [facility] CenterUrine Opiates Vvdnrn7766-89-36 16:18:00 Test Item Value Reference Range Interpretation Comments Urine Opiates Screen (test code = NEGATIVE NEGATIVE 08330-4) [facility] CenterUrine Barbiturates Yrufin1085-95-70 16:18:00 Test Item Value Reference Range Interpretation Comments Urine Barbiturates Screen (test code NEGATIVE NEGATIVE = 420042958) [facility] CenterUrine Phencyclidine Klwugh6999-22-13 16:18:00 Test Item Value Reference Range Interpretation Comments Urine Phencyclidine Screen (test NEGATIVE NEGATIVE code = 20642-3) [facility] CenterUrine Amphetamines Wfrqkp7065-34-63 16:18:00 Test Item Value Reference Range Interpretation Comments Urine Amphetamines Screen (test code NEGATIVE NEGATIVE = 37967-6) [facility] CenterUrine Methamphetamines Qpjjpf4187-57-62 16:18:00 Test Item Value Reference Range Interpretation Comments Urine Methamphetamines Screen (test NEGATIVE NEGATIVE code = Urine Methamphetamines Screen) [facility] CenterUrine Benzodiazepines Cumzaf4416-01-10 16:18:00 Test Item Value Reference Range Interpretation Comments Urine Benzodiazepines Screen (test NEGATIVE NEGATIVE code = 15143-7) [facility] CenterUrine Cocaine Tzhceb1599-13-02 16:18:00 Test Item Value Reference Range Interpretation Comments Urine Cocaine Screen (test code = NEGATIVE NEGATIVE 3398-5) [facility] CenterUrine Cannabinoids Tymlff9278-39-37 16:18:00 Test Item Value Reference Range Interpretation Comments Urine Cannabinoids Screen (test code NEGATIVE NEGATIVE = 26668-9) THESE RESULTS ARE FOR MEDICAL TREATMENT ONLYTHIS REPORT CONTAINS UNCONFIRMED SCREENING RESULTS*POSITIVE RESULTS WILL BE CONFIRMED BY REFERENCE LAB UPON REQUEST CUT-OFFDRUG CLASS CONCENTRATION ng/mLAmphetamines 1000Methamphetamines 1000Cocaine 300Opiate 300Phencyclidine 25Cannabinoid 50Barbiturates 300Benzodiazepine 300Methadone 300[facility] CenterUrine Methadone Vdbtji0921-53-36 16:18:00 Test Item Value Reference Range Interpretation Comments Urine Methadone Screen (test code = NEGATIVE NEGATIVE 77205-1) THESE RESULTS ARE FOR MEDICAL TREATMENT ONLYTHIS REPORT CONTAINS UNCONFIRMED SCREENING RESULTS*POSITIVE RESULTS WILL BE CONFIRMED BY REFERENCE LAB UPON REQUEST CUT-OFFDRUG CLASS CONCENTRATION ng/mLAmphetamines 1000Methamphetamines 1000Cocaine Metabolite 300Opiate 300Phencyclidine 08Hxjepmbjgkm02Ccnxzzxatqxl 300Benzodiazepine 300Methadone 300[facility] CenterProthrombin Ddvi6382-94-38 14:13:00 Test Item Value Reference Range Interpretation Comments Prothrombin Time (test code = 5902-2) 13.6 11.9-14.5 [facility] CenterProthromb Time International Ccgso1614-90-92 14:13:00 Test Item Value Reference Range Interpretation Comments Prothromb Time International Ratio 1.13 (test code = 6301-6) Oral Anticoagulant Therapy INR Values:1. Low Intensity Therapy 1.5 - 2.02. Moderate Intensity Therapy 2.0 - 3.03. High Intensity Therapy(1) 2.5 - 3.54. High Intensity Therapy(2) 3.0 - 4.05. Panic ValueINR > 5.0[facility] CenterActivated Partial Thromboplast Tyji9922-61-29 14:13:00 Test Item Value Reference Range Interpretation Comments Activated Partial Thromboplast Time 27.6 23.8-35.5 (test code = 62982-5) [facility] CenterTotal Jmmmsdxmn8710-82-32 14:10:00 Test Item Value Reference Range Interpretation Comments Total Bilirubin (test code = 1975-2) 0.6 0.2-1.2 [facility] CenterAspartate Amino Transf (AST/SGOT)2017-10-23 14:10:00 Test Item Value Reference Range Interpretation Comments Aspartate Amino Transf (AST/SGOT) (test 36 5-34 H code = Aspartate Amino Transf (AST/SGOT)) [facility] CenterAlanine Aminotransferase (ALT/SGPT)2017-10-23 14:10:00 Test Item Value Reference Range Interpretation Comments Alanine Aminotransferase (ALT/SGPT) 34 0-55 (test code = 1742-6) [facility] CenterTotal Ttxhsek3750-27-68 14:10:00 Test Item Value Reference Range Interpretation Comments Total Protein (test code = 2885-2) 7.3 6.5-8.1 [facility] CenterAlbumin2018-06-04 14:10:00 Test Item Value Reference Range Interpretation Comments Albumin (test code = 1751-7) 4.0 3.5-5.0 [facility] CenterGlobulin2018-06-04 14:10:00 Test Item Value Reference Range Interpretation Comments Globulin (test code = 31482-9) 3.3 2.3-3.5 [facility] CenterAlbumin/Globulin Nmfwp6780-39-35 14:10:00 Test Item Value Reference Range Interpretation Comments Albumin/Globulin Ratio (test code = 1.2 0.8-2.0 1759-0) [facility] CenterAlkaline Vkzmzgqzffe1022-93-35 14:10:00 Test Item Value Reference Range Interpretation Comments Alkaline Phosphatase (test code = 109 40-150 6768-6) [facility] CenterB-Type Natriuretic Rkahnbv4683-31-46 14:10:00 Test Item Value Reference Range Interpretation Comments B-Type Natriuretic Peptide (test code = 92.8 0-100 68414-5) [facility] CenterAmylase Eozyb1466-70-02 14:10:00 Test Item Value Reference Range Interpretation Comments Amylase Level (test code = 1798-8) 126 25-125 H [facility] CenterLipase2018-06-04 14:10:00 Test Item Value Reference Range Interpretation Comments Lipase (test code = 3040-3) 98 8-78 H [facility] CenterD-Dimer Quantitative (PE/DVT)2017-10-23 14:02:00 Test Item Value Reference Range Interpretation Comments D-Dimer Quantitative (PE/DVT) (test 0.49 0.00-0.45 H code = 94259-5) [facility] CenterDirect Fttlvsqyv9019-96-65 13:47:00 Test Item Value Reference Range Interpretation Comments Direct Bilirubin (test code = 79711-0) 0.2 0.0-5.0 [facility] CenterMagnesium Uhbgs2446-92-02 06:52:00 Test Item Value Reference Range Interpretation Comments Magnesium Level (test code = 46970-9) 1.5 1.3-2.1 [facility] CenterUrine WGU6771-18-56 05:09:00 Test Item Value Reference Range Interpretation Comments Urine WBC (test code = 5821-4) NONE 0-5 [facility] CenterUrine GKS9119-79-31 05:09:00 Test Item Value Reference Range Interpretation Comments Urine RBC (test code = 63799-3) NONE 0-5 [facility] CenterUrine Sydxryux9527-45-58 05:09:00 Test Item Value Reference Range Interpretation Comments Urine Bacteria (test code = 29688-9) NONE NONE [facility] CenterUrine Epithelial Ykvcw8572-72-04 05:09:00 Test Item Value Reference Range Interpretation Comments Urine Epithelial Cells (test code = NONE NONE 67808-1) [facility]ukocyte [id number] 04:46:00 Test Item Value Reference Range Interpretation Comments Urine Leukocyte Esterase (test code NEGATIVE NEGATIVE = 5799-2) [facility] [id number] 04:46:00 Test Item Value Reference Range Interpretation Comments Urine Nitrite (test code = 69623-1) NEGATIVE NEGATIVE [facility] [id number] 04:46:00 Test Item Value Reference Range Interpretation Comments Urine Protein (test code = 5804-0) NEGATIVE NEGATIVE [facility] Glucose (UA)2017-03-05 04:46:00 Test Item Value Reference Range Interpretation Comments Urine Glucose (UA) (test code = NEGATIVE NEGATIVE 2349-9) [facility] [id number] 04:46:00 Test Item Value Reference Range Interpretation Comments Urine Ketones (test code = 54560-0) NEGATIVE NEGATIVE [facility] [id number] 04:46:00 Test Item Value Reference Range Interpretation Comments Urine Urobilinogen (test code = 0.2 0.2-1 00978-5) [facility] [id number] 04:46:00 Test Item Value Reference Range Interpretation Comments Urine Bilirubin (test code = 1978-6) NEGATIVE NEGATIVE [facility] [id number] 04:46:00 Test Item Value Reference Range Interpretation Comments Urine Blood (test code = 89766-5) 2+ NEGATIVE H [facility] [id number] 04:46:00 Test Item Value Reference Range Interpretation Comments Urine Color (test code = 5778-6) YELLOW YELLOW [facility] [id number] 04:46:00 Test Item Value Reference Range Interpretation Comments Urine Clarity (test code = 11098-9) CLEAR CLEAR [facility] Specific [id number] 04:46:00 Test Item Value Reference Range Interpretation Comments Urine Specific [place] (test code = 1.010 1.010-1.025 5811-5) [facility] [id number] 04:46:00 Test Item Value Reference Range Interpretation Comments Urine pH (test code = 90279-8) 8 5-7 H [facility] [address] [place] [address] PatientName: FAITH VANCE MR #: [id number] : 1960 Age/Sex: 57/M Req #: [id number] Adm Physician: ALEXIS COX MD Ordered by: ALEXIS COX MD Report #: [id number] Location: [facility] Room/Bed: [place] [address] Procedure: [id number] CT/CTA BRAIN Exam Date: 10/24/17 Exam Time: [...] COPY TO: ALEXIS COX MDCT BRAIN WO [place] [address] PatientName: FAITH VANCE MR #: [id number] : 1960 Age/Sex: 57/M Req #: [id number] Adm Physician: Ordered by: KHAI WAHL MD Report #: [id number] Location: ER Room/Bed: __ Procedure: [id number] CT/CT BRAIN WO Exam Date: 10/23/17 Exam [...] TO: KHAI WAHL V MDCTA CHEST [facility] [address] [place] [address] PatientName: FAITH VANCE MR #: [id number] : 1960 Age/Sex: 57/M Req #: [id number] Adm Physician: Ordered by: KHAI WAHL MD Report #: [id number] Location: ER Room/Bed: __ Procedure: [id number] CT/CTA CHEST Exam Date: 10/23/17 Exam Time: [...] reviewed and is below limits set by [facility]). FINDINGS: Lines and Tubes: [...] MD on 10/23/2017 4:21 PMDictated By: OREN IRZIARRY MD 162 Transcribed By: ANDREE on 10/23/17 1621 COPY TO: KHAI WAHL V [facility] SINGLE (PORTABLE) [place] [address] PatientName: FAITH VANCE MR #: [id number] : 1960 Age/Sex: 57/M Req #: [id number] Adm Physician: Ordered by: KHAI WAHL MD Report #: [id number] Location: ER Room/Bed: __ Procedure: [id number] DX/CHEST SINGLE (PORTABLE) Exam Date: 10/23/17 Exam [...] TO: KHAI WAHL V MDCT BRAIN WO [place] [address] PatientName: FAITH VANCE MR #: [id number] : 1960 Age/Sex: 56/M Req #: [id number] Adm Physician: Ordered by: JACQUELYN MONTES DE OCA MD Report #: [id number] Location: ER Room/Bed: Procedure: [id number] CT/CT BRAIN WO Exam Date: Exam Time: [...] OCA MDCT CERVICAL SPINE WO [place] [address] PatientName: FAITH VANCE MR #: [id number] : 1960 Age/Sex: 56/M Req #: [id number] Adm Physician: Ordered by: JACQUELYN MONTES DE OCA MD Report #: [id number] Location: ER Room/Bed: Procedure: [id number] CT/CT CERVICAL SPINE WO Exam Date: Exam [...] 04/04/17206 COPY TO: JACQUELYN MONTES DE OCA [facility] SINGLE (PORTABLE) [place] [address] PatientName: FAITH VANCE MR #: [id number] : 1960 Age/Sex: 56/M Req #: [id number] Adm Physician: Ordered by: JACQUELYN MONTES DE OCA MD Report #: [id number] Location: ER Room/Bed: Procedure: [id number] DX/CHEST SINGLE (PORTABLE) Exam Date: 04/04/17 Exam [...] RIGHT 2-3 VW (+/- PELVIS) [place] [address] PatientName: FAITH VANCE MR #: [id number] : 1960 Age/Sex: 56/M Req #: [id number] Adm Physician: Ordered by: JACQUELNY MONTES DE OCA MD Report #: [id number] Location: ER Room/Bed: Procedure: [id number] DX/HIP RIGHT 2-3 VW (+/- PELVIS) Exam [...] OCA MDSP LUMBAR, COMPLETE MIN 4VW [facility] [address] [place] [address] PatientName: FAITH VANCE MR #: [id number] : 1960 Age/Sex: 56/M Req #: [id number] Adm Physician: Ordered by: JACQUELYN MONTES DE OCA MD Report #: [id number] Location: ER Room/Bed: Procedure: [id number] DX/SP LUMBAR, COMPLETE MIN 4VW Exam Date: [...] DE OCA MDUS ABDOMEN COMPLETE [place] [address] PatientName: FAITH VANCE MR #: [id number] : 1960 Age/Sex: 56/M Req #: [id number] Adm Physician: NICHELLE PALACIOS MD Ordered by: SCOTT AMIN MD Report #: [id number] Location: [facility] Room/Bed: [address] Procedure: [id number] US/US ABDOMEN COMPLETE Exam Date: 03/08/17 Exam [...] 03/08/2017 at 10:40 Electronically approved by: Brooke Sapmson M.D. on 03/08/2017 at 10:40 Dictated By: BROOKE SAMPSON MD 1040 Transcribed By: ANIBAL on 03/08/17 1040 COPY TO: [facility] [place] [place] [address] PatientName: FAITH VANCE MR #: [id number] : 1960 Age/Sex: 56/M Req #: [id number] Adm Physician: Ordered by: JACQUELYN MONTES DE OCA MD Report #: [id number] Location: ER Room/Bed: Procedure: [id number] DX/CHEST SINGLE (PORTABLE) Exam Date: 03/05/17 Exam [...] pleural effusion or pneumothorax. Signed by: Dr Mraco A Talbot MD on 03/05/2017 5:35 AM Dictated By: MARCO A TALBOT MD Transcribed By: ANDREE on 03/05/1735 COPY TO: JACQUELYN MONTES DE OCA MD"
[2021-12-26] MEDS ORDERED: ONDANSETRON 4 MG/2 ML VIAL ONE (23:27)
[2021-12-26] MEDS ORDERED: MORPHINE 4 MG/ML SYR ONE (23:27)
[2021-12-26] MEDS ORDERED: NA CHLORIDE 0.9% 500 ML ONE (23:27)
[2021-12-26 23:34] LABS: Urine Blood 1+ (Negative); Urine Glucose Negative (Negative); Urine Protein 3+ (Negative); Urine pH 8.5 (5.0-7.0)
[2021-12-26 23:37] LABS: Absolute Lymphocytes (CBC) 1.1 K/uL (0.7-4.9); Hematocrit 35.4 % (39.6-49.0); Lymphocytes % 13.5 % (15.3-44.8); MCV 88.1 fL (80-100); MPV 8.2 fL (7.6-11.3); RBC Red Blood Cell Count 4.02 M/uL (4.33-5.43)
[2021-12-26 23:38] LABS: Protime INR 1.65
[2021-12-26 23:52] LABS: Albumin 3.2 g/dL (3.4-5.0); Bilirubin Direct 0.3 mg/dL (0-0.2); Bilirubin Total 0.9 mg/dL (0.2-1.0); Magnesium 1.9 mg/dL (1.8-2.4); Potassium 4.4 mmol/L (3.5-5.1); Protein, Total 7.7 g/dL (6.4-8.2); Troponin High Sensitivity 19.8 pg/mL (<58.9)
[2021-12-27] MEDS ORDERED: HYDROMORPHONE HCL 0.5 MG/0.5 ML INJ ONE (01:29)
--- NOTE | 2021-12-27 03:09 | ER ---
Nurse's Notes [facility] Name: Ernie Rooney Age: 61 yrs Sex: Male : 1960 Arrival Date: 12/26/2021 Time: 22:30 Bed 15 Private MD: Diagnosis: Chest pain, unspecified;Low back pain-Flank Pain, Intractable;Pleural effusion, not elsewhere classified Presentation: 12/26 22:31 Chief complaint: EMS states: called out for chest pain, pt complains of right flank as6 pain for EMS, EMS gave 324 asa, nitro x1, Toradol. Coronavirus screen: At this time, the client does not indicate any symptoms associated with coronavirus-19. Ebola Screen: No symptoms or risks identified at this time. Initial Sepsis Screen: Does the patient meet any 2 criteria? No. Patient's initial sepsis screen is negative. Does the patient have a suspected source of infection? No. Patient's initial sepsis screen is negative. Risk Assessment: Do you want to hurt yourself or someone else? Patient reports no desire to harm self or others. Onset of symptoms was December 25, 2021. Care prior to arrival: Medication(s) given: ASA, 81 mg, x 4, Nitroglycerin, 0.4 mg SL x 1, Toradol. 22:31 Method Of Arrival: EMS: [facility] as6 22:31 Acuity: TONE 3 as6 Historical: - Allergies: 22:40 NKA; as6 - Home Meds: 22:40 albuterol sulfate 90 mcg/actuation Inhl aepb [Active]; apixaban 5 mg Oral tab 1 tab 2 as6 times per day [Active]; aspirin 81 mg Oral TbEC [Active]; atorvastatin 40 mg Oral tab 1 tab once daily [Active]; cyclobenzaprine 10 mg Oral tab 1 tab as needed [Active]; fenofibrate micronized 200 mg Oral Tb24 1 cap once daily [Active]; furosemide 40 mg Oral tab 1 tab once daily [Active]; gabapentin 800 mg Oral tab 1 tab 3 times per day [Active]; glipizide 10 mg Oral tab 1 tab once daily [Active]; Humulin N Pen 100 unit/mL (3 mL) Sub-Q inpn [Active]; levothyroxine 50 mcg Tb24 1 cap once daily [Active]; lisinopril 2.5 mg Oral tab 1 tab once daily [Active]; metformin 500 mg Oral tab 1 tab daily [Active]; omeprazole 20 mg Oral cpDR 1 cap once daily [Active]; spironolactone 25 mg Oral tab 1 tab once daily [Active]; tamsulosin 0.4 mg Oral Tb24 1 cap once daily [Active]; venlafaxine 75 mg Oral tab 1 tab 2 times per day [Active]; - PMHx: 22:40 Arthritis; Back pain; CVA; Depression; Diabetes - NIDDM; Fibromyalgia; GERD; High as6 Cholesterol; Hyperlipidemia; Hypertension; Hypertensive disorder; Hypothyroidism; Left sided weakness from previous CVA; Myocardial infarction; Pacemaker; - PSHx: 22:40 bilat BKA's; bypass; as6 - Immunization history:: Adult Immunizations up to date, Client reports receiving the 2nd dose of the Covid vaccine. - Social history:: Smoking status: Patient/guardian denies using tobacco, the patient reports quitting approximately 15 years ago. Screenin:06 Abuse screen: Denies threats or abuse. Denies injuries from another. Nutritional as6 screening: No deficits noted. Tuberculosis screening: No symptoms or risk factors identified. Fall Risk None identified. Assessment: 22:30 General: Appears uncomfortable, Behavior is restless. as6 22:30 Pain: Complains of pain in right flank Pain radiates to abdomen Quality of pain is as6 described as sharp, shooting, Noted to be grimacing, moaning, restless. Respiratory: Respiratory effort is even, unlabored. 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 12/27 01:28 General: Reports "I am having pain all over.". Pain: Pain currently is 8 out of 10 on a tw5 pain scale. Vital Signs: 12/26 22:31 BP 147 / 77; Pulse 84; Resp 20 S; Temp 98.3(O); Pulse Ox 100% on R/A; Weight 71.21 kg as6 (R); Height 5 ft. 7 in. (170.18 cm) (R); Pain 9/10; 23:27 BP 155 / 77; Pulse 87; Resp 19 S; Pulse Ox 100% on R/A; as6 12/27 01:28 BP 144 / 79; Pulse 77; Resp 8; Pulse Ox 100% on R/A; Pain 8/10; tw5 03:00 BP 126 / 56; Pulse 80; Resp 16 S; Pulse Ox 95% on R/A; as6 06:35 BP 109 / 59; Pulse 70; Resp 18 S; Pulse Ox 100% on R/A; as6 12/26 22:31 Body Mass Index 24.59 (71.21 kg, 170.18 cm) as6 ED Course: 12/26 22:30 Patient arrived in ED. as6 22:30 Enoc Sahu, RN is Primary Nurse. as6 22:39 Triage completed. as6 22:39 Patient has correct armband on for positive identification. Placed in gown. Bed in low mh5 position. Call light in reach. Side rails up X 1. Warm blanket given. felled seam operator chainstitch on. Pulse ox on. NIBP on. 22:39 EKG done, by ED staff, reviewed by Gagan Mujica MD. Maintain EMS IV. Dressing intact. mh5 Good blood return noted. Site clean \\T\\ dry. 22:47 Initial lab(s) drawn, by me, held in ED. mh5 22:52 Gagan Mujica MD is Attending Physician. mh7 23:07 Arm band placed on. as6 23:26 Lipase Sent. as6 23:26 Basic Metabolic Panel Sent. as6 23:26 CBC with Diff Sent. as6 23:26 LFT's Sent. as6 23:26 Magnesium Sent. as6 23:27 NT PRO-BNP Sent. as6 23:27 PT-INR Sent. as6 23:27 Troponin HS Sent. as6 23:45 XRAY Chest (1 view) In Process Unspecified. EDMS 12/27 00:49 CT Aorta for Dissection In Process Unspecified. EDMS 03:07 Lopez Arrington MD is Hospitalizing Provider. mh7 05:20 Zay Parrish MD is Hospitalizing Provider. sb3 06:23 SARS RAPID Sent. tw5 06:24 COVID swab sent to lab. tw5 06:36 No provider procedures requiring assistance completed. Patient admitted, IV remains in as6 place. 07:59 Primary Nurse role handed off by Enoc Sahu, SHEBA bd Administered Medications: 12/26 23:27 Drug: morphine 4 mg Route: IVP; Infused Over: 4 mins; Site: left forearm; 12/27 06:23 Follow up: Response: No adverse reaction; RASS: Alert and Calm (0) 12/26 23:27 Drug: Zofran (Ondansetron) 4 mg Route: IVP; Site: left forearm; 12/27 06:23 Follow up: Response: Adverse reaction, Physician notified 12/26 23:27 Drug: NS 0.9% 500 ml Route: IV; Rate: bolus; Site: left forearm; 12/27 06:36 Follow up: Response: No adverse reaction; IV Status: Completed infusion; IV Intake: as6 500ml 01:30 Drug: Dilaudid (HYDROmorphone) 1 mg Route: IVP; Site: left forearm; 02:00 Follow up: Response: Pain is decreased; RASS: Drowsy (-1) Medication: 06:35 VIS not applicable for this client. as6 Intake: 06:36 IV: 500ml; Total: 500ml. as6 Outcome: 03:08 Decision to Hospitalize by Provider. 7 06:36 Admitted to ER Hold. Please see [facility] for further documentation. as6 06:36 Condition: stable 06:36 Instructed on the need for admit. 16:17 Patient left the ED. [facility] Signatures: Dispatcher [employer] EDMS Katlin Harris Maria 5 Gagan Mujica MD MD 7 Opal Mahmood 5 Enoc Sahu RN RN 6 Gina Muniz RN RN 6 Makayla Moreno PA PA sb3
--- NOTE | 2021-12-27 03:10 | EDPHYS ---
Physician Documentation [facility] Name: Ernie Rooney Age: 61 yrs Sex: Male : 1960 Arrival Date: 12/26/2021 Time: 22:30 Bed 15 Private MD: ED Physician Gagan Mujica HPI: 12/26 23:05 This 61 yrs old Male presents to ER via EMS with complaints of Flank Pain.. mh7 23:05 The patient complains of pain in the right flank. The pain radiates to the chest. mh7 23:05 Onset: The symptoms/episode began/occurred yesterday. mh7 23:05 Modifying factors: The symptoms are alleviated by nothing. the symptoms are aggravated mh7 by movement, palpation/percussion. Associated signs and symptoms: Pertinent negatives: diarrhea, dizziness, dysuria, fever, urinary frequency, headache, hematuria, nausea, pain radiating to the lower extremities, vomiting. Severity of pain: At its worst the pain was moderate last night, in the emergency department the pain is unchanged. Historical: - Allergies: 22:40 NKA; as6 - Home Meds: 22:40 albuterol sulfate 90 mcg/actuation Inhl aepb [Active]; apixaban 5 mg Oral tab 1 tab 2 as6 times per day [Active]; aspirin 81 mg Oral TbEC [Active]; atorvastatin 40 mg Oral tab 1 tab once daily [Active]; cyclobenzaprine 10 mg Oral tab 1 tab as needed [Active]; fenofibrate micronized 200 mg Oral Tb24 1 cap once daily [Active]; furosemide 40 mg Oral tab 1 tab once daily [Active]; gabapentin 800 mg Oral tab 1 tab 3 times per day [Active]; glipizide 10 mg Oral tab 1 tab once daily [Active]; Humulin N Pen 100 unit/mL (3 mL) Sub-Q inpn [Active]; levothyroxine 50 mcg Tb24 1 cap once daily [Active]; lisinopril 2.5 mg Oral tab 1 tab once daily [Active]; metformin 500 mg Oral tab 1 tab daily [Active]; omeprazole 20 mg Oral cpDR 1 cap once daily [Active]; spironolactone 25 mg Oral tab 1 tab once daily [Active]; tamsulosin 0.4 mg Oral Tb24 1 cap once daily [Active]; venlafaxine 75 mg Oral tab 1 tab 2 times per day [Active]; - PMHx: 22:40 Arthritis; Back pain; CVA; Depression; Diabetes - NIDDM; Fibromyalgia; GERD; High as6 Cholesterol; Hyperlipidemia; Hypertension; Hypertensive disorder; Hypothyroidism; Left sided weakness from previous CVA; Myocardial infarction; Pacemaker; - PSHx: 22:40 bilat BKA's; bypass; as6 - Immunization history:: Adult Immunizations up to date, Client reports receiving the 2nd dose of the Covid vaccine. - Social history:: Smoking status: Patient/guardian denies using tobacco, the patient reports quitting approximately 15 years ago. ROS: 23:05 Constitutional: Negative for fever, chills, and weight loss, Eyes: Negative for injury, mh7 pain, redness, and discharge, ENT: Negative for injury, pain, and discharge, Neck: Negative for injury, pain, and swelling, Respiratory: Negative for shortness of breath, cough, wheezing, and pleuritic chest pain, Abdomen/GI: Negative for abdominal pain, nausea, vomiting, diarrhea, and constipation, : Negative for injury, bleeding, discharge, and swelling, MS/Extremity: Negative for injury and deformity, Skin: Negative for injury, rash, and discoloration, Neuro: Negative for headache, weakness, numbness, tingling, and seizure, Psych: Negative for depression, anxiety, suicide ideation, homicidal ideation, and hallucinations, Allergy/Immunology: Negative for hives, rash, and allergies, Endocrine: Negative for neck swelling, polydipsia, polyuria, polyphagia, and marked weight changes, Hematologic/Lymphatic: Negative for swollen nodes, abnormal bleeding, and unusual bruising. Exam: 23:05 Head/Face: Normocephalic, atraumatic. Eyes: Pupils equal round and reactive to light, mh7 extra-ocular motions intact. Lids and lashes normal. Conjunctiva and sclera are non-icteric and not injected. Cornea within normal limits. Periorbital areas with no swelling, redness, or edema. Neck: Trachea midline, no thyromegaly or masses palpated, and no cervical lymphadenopathy. Supple, full range of motion without nuchal rigidity, or vertebral point tenderness. No Meningismus. Chest/axilla: Normal chest wall appearance and motion. Nontender with no deformity. No lesions are appreciated. Cardiovascular: Regular rate and rhythm with a normal S1 and S2. No gallops, murmurs, or rubs. Normal PMI, no JVD. No pulse deficits. Respiratory: Lungs have equal breath sounds bilaterally, clear to auscultation and percussion. No rales, rhonchi or wheezes noted. No increased work of breathing, no retractions or nasal flaring. 23:05 Abdomen/GI: Soft, non-tender, with normal bowel sounds. No distension or tympany. No guarding or rebound. No evidence of tenderness throughout. 23:05 Skin: Warm, dry with normal turgor. Normal color with no rashes, no lesions, and no evidence of cellulitis. 23:05 Constitutional: The patient appears in no acute distress, alert, awake, uncomfortable. 23:05 Back: normal spinal alignment noted, CVA tenderness, that is moderate, is noted on the right, vertebral tenderness, is not appreciated, muscle spasm, is not present. 23:05 Musculoskeletal/extremity: bilateral BKA. 23:05 Neuro: Orientation: is normal, Mentation: is normal, Memory: is normal, Cranial nerves: grossly normal, Cerebellar function: is grossly normal, Motor: is normal, Sensation: is normal, Gait: not tested. seizure activity, is not displayed by the patient, Abnormal movements: there are no abnormal movements. Vital Signs: 22:31 BP 147 / 77; Pulse 84; Resp 20 S; Temp 98.3(O); Pulse Ox 100% on R/A; Weight 71.21 kg as6 (R); Height 5 ft. 7 in. (170.18 cm) (R); Pain 9/10; 23:27 BP 155 / 77; Pulse 87; Resp 19 S; Pulse Ox 100% on R/A; as6 0808 01:28 BP 144 / 79; Pulse 77; Resp 8; Pulse Ox 100% on R/A; Pain 8/10; tw5 03:00 BP 126 / 56; Pulse 80; Resp 16 S; Pulse Ox 95% on R/A; as6 06:35 BP 109 / 59; Pulse 70; Resp 18 S; Pulse Ox 100% on R/A; as6 12/26 22:31 Body Mass Index 24.59 (71.21 kg, 170.18 cm) as6 MDM: 03:05 Differential diagnosis: nephrolithiasis, pyelonephritis, UTI, diverticulitis, ruptured mh7 AAA, dissecting AAA. Data reviewed: vital signs, nurses notes, old medical records, lab test result(s), cardiac enzymes, CBC, electrolytes, urinalysis, EKG, radiologic studies, CT scan, plain films. Data interpreted: Pulse oximetry: on room air is 100 %. Interpretation: normal. 03:06 Counseling: I had a detailed discussion with the patient and/or guardian regarding: the [facility] historical points, exam findings, and any diagnostic results supporting the discharge/admit diagnosis, the presence of at least one elevated blood pressure reading (>120/80) during this emergency department visit, lab results, radiology results, the need for further work-up and treatment in the hospital. Response to treatment: the patient's symptoms have mildly improved after treatment. 03:08 Patient medically screened. [facility] 12/26 23:14 Order name: Basic Metabolic Panel; Complete Time: 00:22 [facility] 12/26 23:14 Order name: CBC with Diff; Complete Time: 00:22 [facility] 12/26 23:14 Order name: LFT's; Complete Time: 00:22 [facility] 12/26 23:14 Order name: Magnesium; Complete Time: 00:22 [facility] 12/26 23:14 Order name: NT PRO-BNP; Complete Time: 00:22 [facility] 12/26 23:14 Order name: PT-INR; Complete Time: 00:22 [facility] 12/26 23:14 Order name: Troponin HS; Complete Time: 00:22 [facility] 12/26 23:14 Order name: Lipase; Complete Time: 00:22 [facility] 12/26 23:35 Order name: Urine Dipstick-Ancillary; Complete Time: 00:22 [facility] 12/27 05:32 Order name: SARS RAPID bb 12/27 07:26 Order name: Troponin High Sensitivity [facility] 12/27 08:42 Order name: Glucose, Ancillary Testing [facility] 12/27 10:27 Order name: SARS-COV-2 Antigen Rapid [facility] 12/27 12:55 Order name: Glucose, Ancillary Testing [facility] 12/26 23:14 Order name: XRAY Chest (1 view) [facility] 12/26 23:14 Order name: EKG; Complete Time: 23:17 [facility] 12/26 23:14 Order name: Cardiac monitoring; Complete Time: 23:17 [facility] 12/26 23:14 Order name: EKG - Nurse/Tech; Complete Time: 23:17 [facility] 12/26 23:14 Order name: IV Saline Lock; Complete Time: 23:17 [facility] 12/26 23:14 Order name: Labs collected and sent; Complete Time: 23:26 [facility] 12/26 23:14 Order name: O2 Per Protocol; Complete Time: 23:17 [facility] 12/26 23:14 Order name: O2 Sat Monitoring; Complete Time: 23:17 [facility] 12/26 23:14 Order name: Urine Dipstick-Ancillary (obtain specimen); Complete Time: 23:36 [facility] 12/26 23:14 Order name: CT Aorta for Dissection [facility] 12/27 08:18 Order name: EDMS 12/27 08:22 Order name: EDMS Administered Medications: 12/26 23:27 Drug: morphine 4 mg Route: IVP; Infused Over: 4 mins; Site: left forearm; 12/27 06:23 Follow up: Response: No adverse reaction; RASS: Alert and Calm (0) 12/26 23:27 Drug: Zofran (Ondansetron) 4 mg Route: IVP; Site: left forearm; 12/27 06:23 Follow up: Response: Adverse reaction, Physician notified 12/26 23:27 Drug: NS 0.9% 500 ml Route: IV; Rate: bolus; Site: left forearm; 12/27 06:36 Follow up: Response: No adverse reaction; IV Status: Completed infusion; IV Intake: as6 500ml 01:30 Drug: Dilaudid (HYDROmorphone) 1 mg Route: IVP; Site: left forearm; tw5 02:00 Follow up: Response: Pain is decreased; RASS: Drowsy (-1) tw5 Disposition Summary: 12/27/21 03:08 Hospitalization Ordered Hospitalization Status: Observation mh7 Condition: Stable mh7 Problem: new mh7 Symptoms: have improved mh7 Bed/Room Type: Standard [facility] Provider: Zay Parrish(12/27/21 05:20) sb3 Location: Telemetry/MedSurg (observation)(12/27/21 15:11) bd Room Assignment: 228(12/27/21 15:11) bd Diagnosis - Chest pain, unspecified mh7 - Low back pain - Flank Pain, Intractable mh7 - Pleural effusion, not elsewhere classified [facility] Forms: - Medication Reconciliation Form 7 - SBAR form 7 Signatures: Dispatcher [employer] EDMS Katlin Harris Cindy, RN RN cg Gagan Mujica MD MD 7 Opal Mahmood 5 Enoc Sahu RN RN as6 Makayla Moreno PA PA sb3 Corrections: (The following items were deleted from the chart) 05:20 03:08 Lopez Arrington 7 sb3 06:33 03:08 Telemetry/MedSurg (observation) [facility] cg 06:33 03:08 [facility] cg 15: 06:33 [facility] ER HOLD cg bd 15: 06:33 ERHOLD- cg bd
--- NOTE | 2021-12-27 03:37 | P.HP ---
Certification for Inpatient Patient admitted to: Observation With expected LOS: <2 Midnights Patient will require the following post-hospital care: None Practitioner: I am a practitioner with admitting privileges, knowledge of patient current condition, hospital course, and medical plan of care. Services: Services provided to patient in accordance with Admission requirements found in Title 42 Section 412.3 of the Code of Federal Regulations <Makayla Moreno - Last Filed: 12/27/21 03:41> Patient History Date of Service: 12/27/21 Reason for admission: Chest Pain, Flank Pain, CHF History of Present Illness: Patient is a 61-year-old male with history of CAD s/p CABG with pacemaker/defibrillator, afib on eliquis, hypertension, hyperlipidemia, IDDM, hypothyroidism, and systolic CHF who presented to the ED with complaints of right sided flank pain and chest pain. He reports the pain starts in his right flank and radiates up his back and to his chest. He denies any urinary symptoms. Patient was just discharged from this facility 2 days ago after chest pain workup. He was found to have an EF of 23% with severe global hypokinesis and mild pulmonary hypertension and discharged with life vest. Today, his labs are significant for Cr 1.33, BUN 21, glucose 133, alk phos 312, trop 19.8, BNP 5888, urine positive for blood and protein. EKG without new changes. CT dissection protocol without abnormalities except bilateral pleural effusions. He was given 1/2 L fluid, zofran, morphine, and dilaudid with minimal improvement in sy mptoms. ED provider wishes to admit patient for further evaluation and treatment. Home medications list reviewed: Yes - Past Medical/Surgical History Diabetic: Yes -: CAD/VT -: GERD -: Hypertension -: Anxiety/depression -: DM insulin dependent -: Hypothyroidism -: enlarged prostate -: cataract in the left eye -: fibromyalgia -: hyperlipidemia -: neuropathy -: Systolic CHF -: pacemaker placement May 2017 -: triple bypass 2002 4 stents -: back surgeries x 6 -: arthroscopic surgeries bilateral knees -: left forearm rodding -: Cholecystectomy -: Appendectomy -: tonsillectomy Psychosocial/ Personal History: Patient lives at home. He does not work. - Family History Mother -: Heart disease, Hypertension grandparents -: Diabetes, Stroke - Social History Smoking Status: Former smoker Alcohol use: No CD- Drugs: No Caffeine use: Yes Place of Residence: Home <Makayla Moreno - Last Filed: 12/27/21 03:41> Date of Service: 12/27/21 <Zay Parrish - Last Filed: 12/27/21 23:19> Allergies No Known Allergies Allergy (Verified 12/21/21 00:23) Home Medications: Tamsulosin [Flomax*] 0.4 mg PO DAILY 11/19/18 lisinopriL [Prinivil*] 2.5 mg PO DAILY 11/19/18 Aspirin Chewable [Aspirin Chewable*] 81 mg PO BEDTIME 05/11/19 ondansetron HCL [Zofran] 4 mg PO Q8H PRN 08/01/19 Atorvastatin Calcium 40 mg PO DAILY 12/21/21 Cyclobenzaprine [Flexeril*] 10 mg PO BID PRN 12/21/21 Dicyclomine [Bentyl*] 20 mg PO QID 12/21/21 Docusate Sodium 100 mg PO BID 12/21/21 Furosemide 40 mg PO BID 12/21/21 Gabapentin 800 mg PO BID 12/21/21 Levothyroxine Sodium [Levothyroxine] 50 mcg PO DAILY 12/21/21 Metformin HCl 500 mg PO DAILY 12/21/21 Metoprolol Succinate 0.5 tab PO DAILY 12/21/21 Omeprazole 20 mg PO DAILY 12/21/21 Spironolactone 25 mg PO DAILY 12/21/21 Tramadol HCl [Ultram] 50 mg PO PRN PRN 12/21/21 Venlafaxine HCl 75 mg PO BID 12/21/21 glipiZIDE [Glipizide] 10 mg PO DAILY 12/21/21 Apixaban [Eliquis] 5 mg PO BID #60 tab 12/25/21 Review of Systems Cardiovascular: Chest Pain Genitourinary: Other (Right Flank Pain) <Makayla Moreno - Last Filed: 12/27/21 03:41> Physical Examination - Physical Exam General: Alert, In no apparent distress HEENT: Atraumatic, PERRLA, EOMI, Sclerae nonicteric Neck: Supple, No LAD Respiratory: Crackles/rales Cardiovascular: Regular rate/rhythm, Normal S1 S2 Gastrointestinal: Normal bowel sounds, No tenderness Musculoskeletal: No tenderness Integumentary: No rashes Neurological: Normal speech, Normal strength at 5/5 x4 extr, Normal tone, Normal affect - Studies Laboratory Data (last 24 hrs) 12/26/21 23:24: PT 18.3 H, INR 1.65 12/26/21 23:24: WBC 7.9 D, Hgb 12.2 L, Hct 35.4 L, Plt Count 304 D 12/26/21 23:24: Sodium 138, Potassium 4.4, BUN 21 H, Creatinine 1.33 H, Glucose 133 H, Magnesium 1.9, Total Bilirubin 0.9, AST 21, ALT 28, Alkaline Phosphatase 312 H, Lipase 122 <Makayla Moreno - Last Filed: 12/27/21 03:41> - Studies Laboratory Data (last 24 hrs) 12/26/21 23:24: PT 18.3 H, INR 1.65 12/26/21 23:24: WBC 7.9 D, Hgb 12.2 L, Hct 35.4 L, Plt Count 304 D 12/26/21 23:24: Sodium 138, Potassium 4.4, BUN 21 H, Creatinine 1.33 H, Glucose 133 H, Magnesium 1.9, Total Bilirubin 0.9, AST 21, ALT 28, Alkaline Phosphatase 312 H, Lipase 122 <Zay Parrish - Last Filed: 12/27/21 23:19> Assessment and Plan - Problems (Diagnosis) (1) Chest pain Current Visit: Yes Status: Acute Qualifiers: Chest pain type: unspecified Qualified Code(s): R07.9 - Chest pain, unspecified (2) CHF (congestive heart failure) Current Visit: Yes Status: Chronic Qualifiers: Heart failure type: systolic Heart failure chronicity: acute on chronic Qualified Code(s): I50.23 - Acute on chronic systolic (congestive) heart failure (3) CAD (coronary artery disease) Current Visit: Yes Status: Chronic Qualifiers: Coronary Disease-Associated Artery/Lesion type: bypass graft [place] vs. 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 insulin use: with correction use Diabetes mellitus complication status: with kidney complications Diabetes mellitus complication detail: with chronic kidney disease Chronic kidney disease stage: stage 2 (mild) Qualified Code(s): E11.22 - Type 2 diabetes mellitus with diabetic chronic kidney disease; N18.2 - Chronic kidney disease, stage 2 (mild); Z79.4 - longterm (current) use of insulin (5) History of pacemaker Onset Date: 11/08/17 Current Visit: No Status: Chronic (6) Hyperlipidemia Current Visit: Yes Status: Chronic Qualifiers: Hyperlipidemia type: unspecified Qualified Code(s): E78.5 - Hyperlipidemia, unspecified (7) Hypertension Current Visit: Yes Status: Chronic Qualifiers: Hypertension type: unspecified Qualified Code(s): I10 - Essential (primary) hypertension (8) Hypothyroidism Status: Chronic Qualifiers: Hypothyroidism type: acquired Qualified Code(s): E03.9 - Hypothyroidism, unspecified (9) Flank pain, acute Current Visit: Yes Status: Acute - Plan -Pain seems more related to possible nephrolithiasis. CT stone protocol ordered -Creatinine elevated from most recent admission. -Monitor patient on telemetry given chest pain. Will repeat troponin. -ACHS accu checks with moderate sliding scale insulin and diabetic diet -Monitor and replete electrolytes per protocol -Reconcile and continue home medications -Lovenox for VTE ppx -Full code Discharge Plan: Home Plan to discharge in: 24 Hours - Advance Directives Does patient have a Living Will: No Does patient have a Durable POA for Healthcare: No - Code Status/Comfort Care Code Status Assessed: Yes (Full) Critical Care: No Time Spent Managing Pts Care (In Minutes): 50 <Makayla Moreno - Last Filed: 12/27/21 03:41> - Plan Patient seen and examined on rounds this morning quite tender - very superficial, no overlying skin lesions/rashes, spans right back; does not follow dermatome suspect muscle sprain / spasms low suspicion for stone; patient was noted to have microscopic hematuria during prior admission recommended to follow up with urology <Zay Parrish - Last Filed: 12/27/21 23:19>
[2021-12-27] MEDS ORDERED: ACETAMINOPHEN 500 MG TAB PO PRN (05:48)
[2021-12-27] MEDS: INSULIN -REGULAR HUMAN 50 UNIT/0.5 ML ML SQ SCH ×4 (07:30→20:40)
[2021-12-27] MEDS: LEVOTHYROXINE SOD 0.05 MG TABLET PO SCH (07:45)
[2021-12-27] MEDS ORDERED: CYCLOBENZAPRINE 10 MG TAB PO PRN (08:03)
--- NOTE | 2021-12-27 08:17 | RAD REPORT ---
EXAM DESCRIPTION: US - Urinary Bladder - 12/27/2021 8:04 am CLINICAL HISTORY: KALYN, eval stone/hydro COMPARISON: Renal Ultrasound-Complete dated 12/27/2021 FINDINGS: Partially filled urinary bladder shows no wall thickening or mass. No stone or intralumina l abnormality identifiable. IMPRESSION: Unremarkable bladder ultrasound.
--- NOTE | 2021-12-27 08:22 | RAD REPORT ---
EXAM DESCRIPTION: US - Renal Ultrasound-Complete - 12/27/2021 8:04 am CLINICAL HISTORY: KALYN, eval stone/hydro COMPARISON: Abdomen Pelvis W Contrast dated 09/24/2019 FINDINGS: The right kidney measures 11.3 x 5.4 x 6.6 cm. The left kidney measures 11.1 x 5.9 x 5.2 cm. Renal cortical thickness and echogenicity are normal. No hydronephrosis or suspicious renal mass. A 2.5 centimeter cyst is present anterior lower pole right kidney. Urinary bladder is detailed in separate report. IMPRESSION: No hydronephrosis or suspicious renal mass. No other significant findings.
[2021-12-27] MEDS ORDERED: TAMSULOSIN 0.4 MG SR CAP ONE (08:49)
[2021-12-27] MEDS ORDERED: HYDROMORPHONE HCL 1 MG/ML INJ ONE ×2 (08:49→13:43)
[2021-12-27] MEDS ORDERED: DICYCLOMINE HCL 10 MG CAP ONE ×2 (08:50→13:21)
[2021-12-27] MEDS ORDERED: ENOXAPARIN 40 MG/0.4 ML SQ ONE (08:50)
[2021-12-27] MEDS: DOCUSATE NA 100 MG CAP PO SCH ×2 (08:52→20:40)
[2021-12-27] MEDS: DICYCLOMINE HCL 10 MG CAP PO SCH ×4 (08:52→20:40)
[2021-12-27] MEDS: VENLAFAXINE HCL 75 MG TABLET PO SCH ×2 (08:52→20:39)
[2021-12-27] MEDS: METOPROLOL XL 25 MG TAB PO SCH (08:53)
[2021-12-27] MEDS: ENOXAPARIN 40 MG/0.4 ML SQ SCH (08:53)
[2021-12-27] MEDS: TAMSULOSIN 0.4 MG SR CAP PO SCH (08:53)
[2021-12-27] MEDS: HYDROMORPHONE HCL 1 MG/ML INJ IV PRN ×3 (08:54→20:38)
[2021-12-27] MEDS ORDERED: HOME MED 1 EA UNK (Levothyroxine Sodium [Levothyroxine] 50 MCG Capsule) PO SCH (09:00)
[2021-12-27 10:27] LABS: SARS-CoV-2 Antigen Rapid Res Negative (Negative)
--- NOTE | 2021-12-27 12:19 | RAD REPORT ---
EXAM DESCRIPTION: RAD - Chest Single View - 12/26/2021 11:43 pm CLINICAL HISTORY: 61 years Male CHEST PAIN TECHNIQUE: One view of the chest. COMPARISON: No prior exams provided for comparison. FINDINGS: Small left pleural effusion with left basilar atelectasis versus infiltrate. No pneumothor ax. Prior median sternotomy with a left chest wall pacemaker. Mild prominence of the cardiac silhouette. No acute osseous lesion. IMPRESSION: Small left pleural effusion with left basilar atelectasis versus infiltrate. Electronically signed by: Ryanne Frank MD 12/27/2021 12:13 AM CDT Due to temporary technical issues with the PACS/Fluency reporting system, reports are being signed by the in house radiologists without review as a courtesy to insure prompt reporting. The interpreting radiologist is fully responsible for the content of the report.
--- NOTE | 2021-12-27 13:44 | EKG ---
Test Date: 2021-12-26 Test Time: 22:39:40 Sheet Combining Operator: BEN MEASUREMENT RESULTS: Intervals: Rate: 81 WY: 184 QRSD: 162 QT: 448 QTc: 520 [place]: P: 53 WY: 184 QRS: -39 T: 125 INTERPRETIVE STATEMENTS: Electronic ventricular pacemaker Compared to ECG 12/22/2021 16:27:55 No significant changes Electronically Signed On 12-27-21 13:43:14 CDT by Kavin Keenan
--- NOTE | 2021-12-27 13:47 | RAD REPORT ---
EXAM DESCRIPTION: CT - Angio Aorta For Dissection - 12/27/2021 6:51 am CLINICAL HISTORY: Chest pain,flank pain COMPARISON: 12/21/2021 and 06/08/2021. TECHNIQUE: CT CHEST ABDOMEN PELVIS ANGIOGRAPHY WITH IV CONTRAST on 12/26/2021 11:14 PM CDT. MIPS recon structions were generated. This exam was performed according to our departmental dose-optimization program, which includes autom ated exposure control, adjustment of the mA and/or kV according to patient size and/or use of iterati ve reconstruction technique. FINDINGS: Vascular: Thoracic aorta is normal in course and caliber without aneurysm or dissection. P ulmonary arteries are adequately opacified without acute or chronic filling defects. Abdominal aorta is normal in course and caliber without aneurysm. Pelvic arteries are patent without aneurysm or occl usion. Chest: The heart is normal in size following sternotomy and CABG. Left dual-chamber pacemaker is pres ent. There is no pericardial effusion. Intrathoracic lymph nodes are not enlarged. There are moderate bilateral pleural effusions. Central airways are patent. There is left basilar ate lectasis. There is minimal probable scarring in the right lower lobe. Abdomen: The liver is normal in appearance. There is no biliary dilatation. Cholecystectomy was perfo rmed. The pancreas and spleen are normal in appearance. The adrenal glands and kidneys are unremarkab le. There is no free air. There is no retroperitoneal adenopathy. Pelvis: There is no bowel obstruction. Urinary bladder is unremarkable. There is no free fluid. Appen ela is normal. There appears to be an AV shunt within the right groin with asymmetrically early opaci fication of the right common femoral vein. Skeleton: There are no acute osseous findings. No suspicious bony lesions. IMPRESSION: No aortic dissection or aneurysm. No pulmonary embolus. Bilateral pleural effusions with left basilar atelectasis. Probable AV shunt within the right groin. Electronically signed by: Travis Ruiz MD 12/27/2021 2:05 AM CDT Due to temporary technical issues with the PACS/Fluency reporting system, reports are being signed by the in house radiologists without review as a courtesy to insure prompt reporting. The interpreting radiologist is fully responsible for the content of the report.
[2021-12-27] MEDS: ONDANSETRON 4 MG/2 ML VIAL IV PRN (16:46)
[2021-12-27 17:14] VITALS: O2SAT 100
[2021-12-27 17:16] VITALS: BMI 24.5
[2021-12-27] MEDS ORDERED: PNEUMOCOCCAL VACCINE 0.5 ML IMVAC ONE (20:00)
[2021-12-27] MEDS ORDERED: ASPIRIN 81 MG CHEWABLE TABLET PO SCH (21:00)
[2021-12-27] MEDS ORDERED: ATORVASTATIN 40 MG TAB PO SCH (21:00)
[2021-12-28] MEDS: HYDROMORPHONE HCL 1 MG/ML INJ IV PRN ×2 (01:52→07:21)
[2021-12-28] MEDS: ONDANSETRON 4 MG/2 ML VIAL IV PRN (01:52)
--- NOTE | 2021-12-28 03:00 | CON ---
Date of Consultation: 12/27/2021 Chief Complaint: Elevated BUN and creatinine, chest pain, flank pain, and congestive heart failure. History Of Present Illness: The patient is a 61-year-old man with history of coronary artery disease status post CABG with pacemaker and defibrillator, atrial fibrillation on Eliquis, hypertension, hyp erlipidemia, insulin-dependent diabetes mellitus, hypothyroidism, diabetic retinopathy, and systolic congestive heart failure. The patient presented to emergency room with complaints of right-sided fla nk pain and chest pain. He said that pain started at right flank and was radiating to his back and s ubsequently he had the chest pain. He denies urinary symptoms. Denies dysuria, hematuria, or incomp lete voiding. Denied painful urination. The patient was found to have severe systolic dysfunction. Ejection fraction was 23% with global hypokinesis and mild pulmonary hypertension. Previously was d ischarged with LifeVest. Today lab work showed creatinine of 1.33, BUN 21, glucose 133, troponin 19. 8, and BNP 5888. Urine was positive for blood and protein. EKG did not show peak waves. CT scan di ssection protocol without abnormalities except bilateral pleural effusion. The patient received Zofr an, morphine and Dilaudid for pain control and currently he denies pain. Review of Systems: General: Denies fever or chills. Eyes: Denies vision changes. Ears, Nose, Mouth and Throat: Denies sore throat or earache. Respiratory: Denies PND or orthopnea. Cardiovascular: Had chest pain off and on over the last 24 hours. Denies syncope. GI: Denies nausea or vomiting. : Denies dysuria or hematuria. Musculoskeletal: Had back pain and flank pain with radiation to the lower extremities. All other systems reviewed and all are negative. Past Medical History: Coronary artery disease, myocardial infarction, GERD, hypertension, anxiety, d epression, diabetes mellitus insulin dependent, hypothyroidism, prostate enlargement, cataract in the left eye, fibromyalgia, hyperlipidemia, neuropathy, systolic congestive heart failure, pacemaker elmo [employer] in May 2017, triple bypass in 2002, history of PTCA and stent placement, leg surgery x6, a rthroscopic surgery to bilateral knees, history of lower extremity surgery, appendectomy, and tonsill ectomy. Family History: Mother with heart disease and hypertension. Grandparents with diabetes mellitus, an d Throat. Social History: Former smoker. Denies alcohol. Denies illicit drugs. Physical Examination: General: The patient is awake, alert, follows commands. Eyes: Anicteric sclerae. EOMI. Ears, Nose, Mouth, and Throat: Oral mucosa moist. No pallor. Neck: Supple. No bruits. Respiratory: Crackles and rales present. Cardiovascular: S1, S2. Regular rate and rhythm. Abdomen: Soft. Benign. Musculoskeletal: No effusion. Neurological: Moving extremities. Cranial nerves intact. Laboratory Data: Potassium 4.4, sodium 138, BUN 21, creatinine 1.33, glucose 133, magnesium 1.9, lip ase 122, AST 21, ALT 28, AP 312. Impression And Plan: 1.Chest pain. The patient is undergoing workup with Cardiology. The patient may need cardiac juan terization and plan is to continue to monitor fluid balance. 2.The patient has cardiorenal syndrome. Continue diuretics as needed. Monitor blood pressure. Eduard id nonsteroidal anti-inflammatory medication. 3.Coronary artery disease and angina. The patient will have further workup with Cardiology. 4.Diabetes mellitus, likely the patient has renal manifestation. Continue to screen for proteinuria . The patient was found to have microscopic hematuria. Ultrasound was ordered to rule out kidney ma ss and plan is to check CT scan without contrast per stone protocol. 5.Hyperlipidemia. Continue statin medication. Re-evaluate. 6.Hypertension. Adjust blood pressure medication as needed. AUGUSTO/VAMSHI Voice ID: [id number] Report ID: [id number]
[2021-12-28 06:04] LABS: Absolute Lymphocytes (CBC) 1.1 K/uL (0.7-4.9); Hematocrit 32.1 % (39.6-49.0); Lymphocytes % 19.9 % (15.3-44.8); MCV 88.8 fL (80-100); MPV 7.3 fL (7.6-11.3); RBC Red Blood Cell Count 3.61 M/uL (4.33-5.43)
[2021-12-28 06:26] LABS: CKMB Creatine Kinase MB 2.2 ng/mL (1.0-3.6); Magnesium 2.1 mg/dL (1.8-2.4); Phosphorus 4.1 mg/dL (2.5-4.9); Potassium 4.6 mmol/L (3.5-5.1)
[2021-12-28] MEDS: LEVOTHYROXINE SOD 0.05 MG TABLET PO SCH (07:22)
[2021-12-28] MEDS: INSULIN -REGULAR HUMAN 50 UNIT/0.5 ML ML SQ SCH (07:30)
[2021-12-28 08:29] VITALS: BP 121/71; TEMP 97.2
--- NOTE | 2021-12-28 09:00 | P.DS ---
Admission Date: 12/27/21 Discharge Date: 12/28/21 Disposition: ROUTINE DISCHARGE Discharge Condition: FAIR Reason for Admission: Chest Pain, Flank Pain, CHF - Problems (1) Chest pain, rule out acute myocardial infarction Status: Acute (2) CAD (coronary artery disease) Status: Chronic Qualifiers: Coronary Disease-Associated Artery/Lesion type: bypass graft [place] vs. 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 Diabetes mellitus complication status: with kidney complications Diabetes mellitus complication detail: with chronic kidney disease Chronic kidney disease stage: stage 2 (mild) Qualified Code(s): E11.22 - Type 2 diabetes mellitus with diabetic chronic kidney disease; N18.2 - Chronic kidney disease, stage 2 (mild); Z79.4 - group home (current) use of insulin (4) Hypertension Status: Chronic Qualifiers: Hypertension type: unspecified Qualified Code(s): I10 - Essential (primary) hypertension Brief History of Present Illness: Patient is a 61-year-old male with history of CAD s/p CABG with pacemaker/defibrillator, afib on eliquis, hypertension, hyperlipidemia, IDDM, hypothyroidism, and systolic CHF who presented to the ED with complaints of right sided flank pain and chest pain. He reports the pain starts in his right flank and radiates up his back and to his chest. He denied any urinary symptoms. Patient was just discharged from this facility 2 days ago after chest pain workup. He was found to have an EF of 23% with severe global hypokinesis and mild pulmonary hypertension and discharged with life vest. Today, his labs are significant for Cr 1.33, BUN 21, glucose 133, alk phos 312, trop 19.8, BNP 5888, urine positive for blood and protein. EKG without new changes. CT dissection protocol without abnormalities except bilateral pleural effusions. He was given 1/2 L fluid, zofran, morphine, and dilaudid with minimal improvement in symptoms. Patient placed under observation for further management. Hospital Course: Troponin trended negative. Patient was asymptomatic during the hospital stay. Recent diagnosis of systolic heart failure EF of 23%. Patient is supposed to wear LifeVest. Renal function within normal limits. Patient is eating and mobile. He is deemed stable for discharge. Patient advised to keep his prior follow-up appointments especially with cardiology. Vital Signs/Physical Exam: Temp Pulse Resp BP Pulse Ox 97.2 F 71 16 121/71 93 12/28/21 08:00 12/28/21 08:00 12/28/21 08:00 12/28/21 08:00 12/28/21 08:00 General: Alert, In no apparent distress, Oriented x3 Neck: Supple, JVD not distended Respiratory: Clear to auscultation bilaterally, Normal air movement Cardiovascular: No edema, Regular rate/rhythm, Normal S1 S2 Gastrointestinal: Normal bowel sounds, Soft and benign, Non-distended, No tenderness Musculoskeletal: No tenderness Integumentary: No cyanosis Neurological: Normal strength at 5/5 x4 extr Laboratory Data at Discharge: WBC 5.7 K/uL (4.3-10.9) D 12/28/21 05:52 Hgb 11.1 g/dL (13.6-17.9) L 12/28/21 05:52 Hct 32.1 % (39.6-49.0) L 12/28/21 05:52 Plt Count 251 K/uL (152-406) 12/28/21 05:52 PT 18.3 SECONDS (9.5-12.5) H 12/26/21 23:24 INR 1.65 12/26/21 23:24 Sodium 138 mmol/L (136-145) 12/28/21 05:52 Potassium 4.6 mmol/L (3.5-5.1) 12/28/21 05:52 BUN 22 mg/dL (7-18) H 12/28/21 05:52 Creatinine 1.05 mg/dL (0.55-1.3) 12/28/21 05:52 Glucose 111 mg/dL (74-106) H 12/28/21 05:52 Phosphorus 4.1 mg/dL (2.5-4.9) 12/28/21 05:52 Magnesium 2.1 mg/dL (1.8-2.4) 12/28/21 05:52 Total Bilirubin 0.9 mg/dL (0.2-1.0) 12/26/21 23:24 AST 21 U/L (15-37) 12/26/21 23:24 ALT 28 U/L (12-78) 12/26/21 23:24 Alkaline Phosphatase 312 U/L (45-117) H 12/26/21 23:24 Lipase 122 U/L (73-393) 12/26/21 23:24 Home Medications: Tamsulosin [Flomax*] 0.4 mg PO DAILY 11/19/18 lisinopriL [Prinivil*] 2.5 mg PO DAILY 11/19/18 Aspirin Chewable [Aspirin Chewable*] 81 mg PO BEDTIME 05/11/19 ondansetron HCL [Zofran] 4 mg PO Q8H PRN 08/01/19 Atorvastatin Calcium 40 mg PO DAILY 12/21/21 Cyclobenzaprine [Flexeril*] 10 mg PO BID PRN 12/21/21 Dicyclomine [Bentyl*] 20 mg PO QID 12/21/21 Docusate Sodium 100 mg PO BID 12/21/21 Furosemide 40 mg PO BID 12/21/21 Gabapentin 800 mg PO BID 12/21/21 Levothyroxine Sodium [Levothyroxine] 50 mcg PO DAILY 12/21/21 Metformin HCl 500 mg PO DAILY 12/21/21 Metoprolol Succinate 0.5 tab PO DAILY 12/21/21 Omeprazole 20 mg PO DAILY 12/21/21 Spironolactone 25 mg PO DAILY 12/21/21 Venlafaxine HCl 75 mg PO BID 12/21/21 glipiZIDE [Glipizide] 10 mg PO DAILY 12/21/21 Apixaban [Eliquis] 5 mg PO BID #60 tab 12/25/21 Cyclobenzaprine [Flexeril*] 10 mg PO TIDP PRN #15 tab 12/28/21 Hydrocodone 5/APAP 325 [[place] 5/325] 1 tab PO Q6H PRN #12 tab 12/28/21 New Medications: Cyclobenzaprine [Flexeril*] 10 mg PO TIDP PRN #15 tab PRN Reason: Muscle Spasms Hydrocodone 5/APAP 325 [[place] 5/325] 1 tab PO Q6H PRN #12 tab PRN Reason: Pain Diet: AHA Activity: Ad nafisa Followup: NONE,NONE [Primary Care Provider] -
[2021-12-28] MEDS: METOPROLOL XL 25 MG TAB PO SCH (09:13)
[2021-12-28] MEDS: DOCUSATE NA 100 MG CAP PO SCH (09:13)
[2021-12-28] MEDS: VENLAFAXINE HCL 75 MG TABLET PO SCH (09:13)
[2021-12-28] MEDS: DICYCLOMINE HCL 10 MG CAP PO SCH (09:13)
[2021-12-28] MEDS: ENOXAPARIN 40 MG/0.4 ML SQ SCH (09:13)
[2021-12-28] MEDS: TAMSULOSIN 0.4 MG SR CAP PO SCH (09:13)
--- NOTE | 2021-12-28 14:16 | PN ---
Date of Progress Note: 12/28/2021 Subjective: The patient was admitted with acute kidney injury secondary to cardiorenal. The patient is currently on room air. The patient has ejection fraction of 23%. Objective: Vital Signs: Blood pressure 121/71, pulse of 71, afebrile. The patient had good urine output. Chest: Clear to auscultation. Heart: S1, S2 regular. Abdomen: Soft, nontender. Extremities: Bilateral above-knee amputation. Neurological: Alert, oriented x3. No focal. Laboratory Data: WBC 5.7, H and H 11.1/32.1, platelets 251. Sodium 138, potassium 4.6, bicarb 28, BUN 21, creatinine 1, GFR up to 80, calcium 9.1, phos 4.1, magnesium 2.1. Urine, +3 protein. Current Medications: The patient on include: 1. Flexeril. 2. Dicyclomine. 3. Flomax. 4. Atorvastatin. 5. Metoprolol. 6. Effexor. 7. Levothyroxine. As home medications, the patient used to be on: 1. Lisinopril. 2. Glipizide. 3. Spironolactone. 4. Metformin. 5. Demeclocycline. 6. Lasix. Assessment And Plan: 1. Acute kidney injury secondary to prerenal, on chronic kidney disease secondary to cardiorenal. Currently, the patient has normal volume of Lasix, okay from the renal standpoint for discharge planning. To follow up in the office in 2-to 3 weeks. 2. Chronic kidney disease stage 1. Normal size kidney, proteinuric, with acute kidney injury as above. The patient needs followup in the office to resume his diuresis currently. We will continue holding the diuresis. 3. Chest pain as by Cardiology. 4. Hypertension, controlled, optimal. Continue current treatment as I mentioned. We will hold the Lasix. Currently, the patient is going to need to be rechallenged as outpatient if needed to be started. Please do not start more than 40 mg daily. 5. Coronary artery disease. 6. Congestive heart failure, advanced. Hold spironolactone. Hold Lasix for the time being. The patient if needed to be resumed. Lasix 40 mg daily. Time spent examining the patient [id number], reviewing the data, placing order, discussing with by bedside, discussing with staff member including charge nurse and nursing and hospitalist 35 minutes. BLANKA Voice ID: [id number] Report ID: [id number]
== END 2021-12-28 11:42 | disposition home or self-care (01) ==
LOC: ER 22:28 → ERHOLD 12-27 03:53 → 2ND 12-27 16:08
PROVIDERS: ADMIT Hospitalist; ATTEND Internal Medicine
DX: I13.0 Hypertensive heart and chronic kidney disease with heart failure and stage 1 through stage 4 chronic kidney disease, or unspecified chronic kidney disease (principal); I50.23 Acute on chronic systolic (congestive) heart failure; E11.22 Type 2 diabetes mellitus with diabetic chronic kidney disease; N18.2 Chronic kidney disease, stage 2 (mild); N17.9 Acute kidney failure, unspecified; I25.700 Atherosclerosis of coronary artery bypass graft(s), unspecified, with unstable angina pectoris; E78.5 Hyperlipidemia, unspecified; E03.9 Hypothyroidism, unspecified; I27.20 Pulmonary hypertension, unspecified; E11.40 Type 2 diabetes mellitus with diabetic neuropathy, unspecified; M62.838 Other muscle spasm; I25.2 Old myocardial infarction; K21.9 Gastro-esophageal reflux disease without esophagitis; N40.0 Benign prostatic hyperplasia without lower urinary tract symptoms; M79.7 Fibromyalgia; M54.50 Low back pain, unspecified; F41.9 Anxiety disorder, unspecified; F32.A Depression, unspecified; Z20.822 Contact with and (suspected) exposure to COVID-19; Z95.810 Presence of automatic (implantable) cardiac defibrillator; Z95.1 Presence of aortocoronary bypass graft; Z95.5 Presence of coronary angioplasty implant and graft; Z79.01 Long term (current) use of anticoagulants; Z79.02 Long term (current) use of antithrombotics/antiplatelets; Z79.4 Long term (current) use of insulin; Z79.84 Long term (current) use of oral hypoglycemic drugs; Z79.899 Other long term (current) drug therapy; Z87.891 Personal history of nicotine dependence; Z89.612 Acquired absence of left leg above knee; Z89.611 Acquired absence of right leg above knee; Z90.49 Acquired absence of other specified parts of digestive tract; Z82.49 Family history of ischemic heart disease and other diseases of the circulatory system; Z83.3 Family history of diabetes mellitus; Z82.3 Family history of stroke
CPT/HCPCS: 36415; 71045; 71275; 74175; 76770; 76857; 80048; 80076; 81003; 82553; 82947; 83690; 83735; 83880; 84100; 84484; 85025; 85610; 87811; 93005; 96361; 96374; 96375; 99285; J1170; J1650; J2405; J7040; Q9967

== ENCOUNTER 2022-01-08 06:58 | Emergency (ER) | payer OTHER ==
--- OUTSIDE RECORDS SUMMARY | 2022-01-08 07:07 | XMS REPORT | Continuity of Care Document ---
:1960 Author Organization [facility] t Address [address] [place] [address] Care Team Providers Name Role Phone MONIKA HALL MD Primary Care Physician [id number] Attending Clinician Unavailable Harshal Zhu Attending Clinician Unavailable Finn Shah Attending Clinician Unavailable Troy KU Attending Clinician Unavailable Troy Wahl Attending Clinician MIHAELA MARTIN Attending Clinician Unavailable Mihaela Martin NP Attending Clinician Micaela Feliciano RN Attending Clinician Unavailable OC BRYSON Attending Clinician Unavailable ANA MARIA MEZA Attending Clinician Unavailable Wong_H Attending Clinician Unavailable Fede Carrera Attending Clinician Unavailable Radiology Attending Clinician Unavailable PERLA LOCKHART Attending Clinician Unavailable Gina Heath MD Attending Clinician KNOW, DOES_NOT Attending Clinician Unavailable Johnie Montaenz Attending Clinician Unavailable ALEXIS COX Attending Clinician Unavailable JACQUELYN MONTES DE OCA Attending Clinician Unavailable NICHELLE PALACIOS Attending Clinician Unavailable [id number] Admitting Clinician Unavailable Nika Martin Admitting Clinician Unavailable KNOW, DOES_NOT Admitting Clinician Unavailable Physician, No Primary or Family Admitting Clinician UnavailTroy Dunne Admitting Clinician Unavailable MIHAELA MARTIN Admitting Clinician Unavailable OC BRYSON Admitting Clinician Unavailable LIZETT WEST Admitting Clinician Unavailable Tej_Rizwana Admitting Clinician Unavailable Fede Carrera Admitting Clinician Unavailable Johnie Montanez Admitting Clinician Unavailable ALEXIS COX Admitting Clinician Unavailable NICHELLE PALACIOS Admitting Clinician Unavailable Payers Payer Name Policy Type Policy Number Effective Date Expiration Date S willow [facility] [id number] [employer] [id number] 2018spring 00:00:00 [employer] [id number] 2004 LUCY Frankel 00:00:00 [facility] [...] on on 00:00: [place] exertion) exertion) 00 [facility] uriel Branch Pleural Pleural Disease Active Univers effusion, effusion, 8-13 [place] of bilateral [place] 00:[place] CHF CHF Disease Active Univers (congestiv (congestiv 5-05 it y of e heart e heart 00:00: [place] failure), failure), 00 [facility] uriel NYHA class NYHA class Br anch I, acute I, acute on on chronic, chronic, combined combined Hypotensio Hypotensio Disease Active U nivers n n 4-15 ity of 00:00: [place] [facility] Sepsis Sepsis Disease Active Univers [...] [place] [facility] Preop Preop Disease Active 2019-05 Univers cardiovasc cardiovasc 0-26 it y of ular exam ular exam 00:[place] KALYN (acute KALYN (acute Disease Active 2019-05 U nivers kidney kidney 0-26 ity of injury) injury) 00:00: [place] [facility] Left foot Left foot Disease Active 2019-05 Overview: Univers pain pain 0-25 Formattin ity of 00:00: g of this [place] 00 note Medical might be Branch different from the original. Added automatic ally from request for surgery [id number] Troponin I Troponin I Disease Active 2019- U nivers above above 9-16 ity of [...] adult in adult 9-14 ity of 00:00: [place] [facility] Cellulitis Cellulitis Disease Active 2019- U nivers of left of left 6-27 ity of foot foot 00:00: [place] 00 Medical Branch Pacemaker Pacemaker Disease Active Uni vers 3-18 ity of 00:00: [place] 00 Medical Branch PAF PAF Disease Active 2019- Univers (paroxysma (paroxysma 3-18 it y of l atrial l atrial 00:00: [place] fibrillati fibrillati 00 Me dical on) on) Branch Abdominal Abdominal Disease Active 2019- Uni vers pain pain 2-27 ity of 00:00: [place] [facility] Pacemaker Pacemaker Disease Active Uni vers malfunctio malfunctio 2-04 it y of n n 00:00: [place] 00 Medical Branch Cellulitis Cellulitis Disease Active 2018-05 U nivers 1-19 ity of 00:00: [place] 00 Medical Branch Arterioven Arterioven Disease Active 2019- U nivers ous ous 9-25 ity of fistula of fistula of 00:[place] right right 00 Medical femoral femoral Branch vessels vessels NSTEMI NSTEMI Disease Active 2019- Univers (non-ST (non-ST 9-05 ity of elevated elevated 00:00: [place] myocardial myocardial 00 Me dical infarction infarction Br anch ) ) Coronary Coronary Disease Active Unive rs artery artery 8-29 ity of disease disease 00:00: [place] involving involving 00 Medi uriel [place] Branch coronary coronary artery of artery of [place] heart with heart with angina angina pectoris pectoris Type 2 Type 2 Disease Active Univers diabetes diabetes 01-17 ity of mellitus mellitus 00:00: [place] without without 00 Medical complicati complicati Br anch on, on, without without long-term long-term current current use of use of insulin insulin Essential Essential Disease Active Uni vers hypertensi hypertensi 01-17 it y of on on 00:00: [place] [facility] Other Other Disease Active Univers hyperlipid hyperlipid 01-17 it y of emia emia 00:00: [place] [facility] Stroke Stroke Disease Active Univers 5-12 ity of 00:00: [place] [facility] Left-sided Left-sided Disease Active U nivers weakness weakness 5- ity of 00:00: [place] [facility] Left sided Left sided Disease Active U nivers numbness numbness - ity of 00:00: [place] 00 Medical Branch S/P admn S/P admn Disease Active Unive rs tPA in tPA in -11 ity of diff fac diff fac 00:00: [place] w/n last w/n last 00 Medica l 24 hr bef 24 hr bef Bran ch adm to adm to crnt fac crnt fac Unstable Unstable Disease Active Unive rs angina angina 4-10 ity of 00:00: [place] [facility] Atypical Atypical Disease Active Unive rs chest pain chest pain 2-22 it y of 00:00: [place] [id number] Medical Branch Chest pain Chest pain Problem Active [facility] Coronary CAD Problem Active [facility] artery (coronary [facility] disease artery Patient disease) Medical [place] Diabetic DKA Problem Active [facility] ketoacidos (diabetic Esme es is ketoacidos Patien t es) Medical [place] Hyperglyce Hyperglyce Problem Active [facility] bambi bambi [facility] Patient [facility] Hypertensi Hypertensi Problem Active [facility] on on [facility] Patient [facility] Pancreatit Pancreatit Problem Active [facility] is is [facility] Patient [facility] Uncontroll Uncontroll Problem Active [facility] ed ed [facility] diabetes diabetes Patien t mellitus mellitus Medica l Center Allergies, Adverse Reactions, Alerts Allergy Allergy Status Severity Reaction(s) Onset Inactive Treating Comm ents Source Name Type Date Date Clinician No Known DA Active U [facility] Allergie 3-22 [place] 00:00: d 00 [facility] No Known DA Active U 2020- [facility] Allergie 3-22 [place] 00:00: d 00 [facility] No Known DA Active U 2017- [facility] Allergie 2-31 Clear s 00:00: [place] 00 [facility] No Known DA Active U 2017- [facility] Allergie 2-31 Clear s 00:00: [place] 00 [facility] No Known DA Active U 2017-0 [facility] Allergie 3-26 [place] s 00:00: e 00 [facility] NO KNOWN Drug Active Univers ALLERGIE Class ity of S [place] [facility] Social History Social Habit Start Date Stop Date Quantity Comments Source History of Cigarette Smoker Universi ty of tobacco use [place] [facility] History SDOH University o f Alcohol Frequency [place] M edical [facility] History SDOH University o f Alcohol Std [place] Medical Drinks Branch History [facility] University o f Alcohol Binge [place] [facility] al Branch Exposure to 2021-10-30 2021-11-09 Unable to assess Univers ity of SARS-CoV-2 00:00:00 15:13:00 [facility] (event) Branch Alcohol intake 2021-11-05 2021-11-05 1.71 /d University of 00:00:00 00:00:00 [facility] Branch Tobacco Comment 2021-11-03 2021-11-03 quit 15 years ago Un iversity of 00:00:00 00:00:00 [facility] Branch Education 2021-10-27 2021-10-27 9 University of 00:00:00 00:00:00 [place] [facility] History [facility] 2020-03-16 2020-03-16 3 University o f Financial 00:00:00 00:00:00 [place] [facility] History SDMI Food 2020-03-16 2020-03-16 2 Univers ity of Worry 00:00:00 00:00:00 [place] [facility] History SDMI Food 2020-03-16 2020-03-16 2 Univers ity of Scarcity 00:00:00 00:00:00 [place] [facility] History SDOH 2020-03-16 2020-03-16 1 University o f Transport Med 00:00:00 00:00:00 [place] Medic al Branch History SDOH 2020-03-16 2020-03-16 1 University o f Transport Non-Med 00:00:00 00:00:00 [facility] Alcohol Comment 2019-07-18 2019-07-18 quit drinking Malgorzata sity of 00:00:00 00:00:00 2013 but drank [facility] heavily before Branch this Tobacco use and 2018-07-14 2018-07-14 Never used Universit y of exposure 00:00:00 00:00:00 [facility] Sex Assigned At [birth year] Universit y of 00:00:00 00:00:00 [facility] Smoking Status Start Date Stop Date Source Former smoker 2018-07-14 00:00:00 2018-07-14 00:00:00 [facility] [place] [facility] Medications Ordered Filled Start Stop Current Ordering Indication Dosage Frequency Signature Comments Components Source Medication Medication Date Date Medication? Clinician (SIG) Name Name HYDROcodone 2021- No 1{tbl} 1 tablet, Univers -acetaminop 11-09 Oral, ity of hen (NORCO) 22:30: 21:37 [place]CE[place] 1 [place] 10-325 mg 00 :00 dose, On Medica l tablet Mon [place] tablet 11/09/21 at 1730, Routine ketorolac 2021- No 15mg 15 mg, Unive rs (TORADOL) 11-09 Slow IV ity of injection 22:00: 21:05 Push, [place] 15 mg 00 :00 ONCE, 1 Medical dose, On Branch e 11/09/21 at 1700, PIERRE HYDROcodone 2021- No 1{tbl} 1 tablet, Univers -acetaminop 11-05 Oral, ity of hen (NORCO) 07:15: 07:51 ONCE, 1 [place] 10-325 mg 00 :00 dose, On Medica l tablet Mon Branch tablet 11/05/21 at 0215, Routine ketorolac 2021- No 30mg 30 mg, Unive rs (TORADOL) 11-05 Slow IV ity of injection 07:15: 07:49 Push, [place] 30 mg 00 :00 ONCE, 1 Medical dose, On Branch 11/05/21 at 0215, Routine gabapentin 2021- No 300mg 300 mg, Un charley (NEURONTIN) 11-05 Oral, ity of capsule 300 07:15: 06:58 ONCE, 1 [place] mg 00 :00 dose, On Medical Fri Branch 11/05/21 at 0215, PIERRE dexamethaso 2021- No 10mg 10 mg, Uni vers ne sod phos 11-05 Slow IV ity of PF 07:15: 06:56 Push, [place] injection 00 :00 ONCE, 1 Medical 10 mg dose, On Branch 11/05/21 at 0215, 1 mL gabapentin 2021- Yes [id number] 300mg Take 1 Univers 300 mg 11-05 capsule by ity of capsule 00:00: 04:59 mouth 3 [place] 00 :00 (three) Medical times Branch daily for 10 days. gabapentin 2021- Yes [id number] 300mg Take 1 Univers 300 mg 11-05 capsule by ity of capsule 00:00: 04:59 mouth 3 [place] 00 :00 (three) Medical times Branch daily for 10 days. aspirin 81 2021- Yes [id number] 81mg Take 1 Univers mg chewable 6-16 07-17 tablet by it y of tablet 00:00: 04:59 mouth [place] 00 :00 daily for Medical 30 days. Branch aspirin 81 2021- Yes [id number] 81mg Take 1 Univers mg chewable 6-16 07-17 tablet by it y of tablet 00:00: 04:59 mouth [place] 00 :00 daily for Medical 30 days. Branch aspirin 81 2021- Yes [id number] 81mg Take 1 Univers mg chewable 6-16 07-17 tablet by it y of tablet 00:00: 04:59 mouth [place] 00 :00 daily for Medical 30 days. Branch proMETHazin Yes [id number] 25mg Take 1 Univers e 25 mg 6-03 tablet by ity of tablet 00:00: mouth [place] 00 every 6 Medical (six) Branch hours as needed for Nausea and Vomiting (N/V). proMETHazin Yes [id number] 25mg Take 1 Univers e 25 mg 6-03 tablet by ity of tablet 00:00: mouth [place] 00 every 6 Medical (six) Branch hours as needed for Nausea and Vomiting (N/V). proMETHazin Yes [id number] 25mg Take 1 Univers e 25 mg 6-03 tablet by ity of tablet 00:00: mouth [place] 00 every 6 Medical (six) Branch hours as needed for Nausea and Vomiting (N/V). fenofibrate 2021- Yes [id number] 134mg Take 1 Univers micronized -19 12- capsule by it y of 134 mg 00:00: 04:59 mouth [place] capsule 00 :00 daily for Medical 30 days. Branch lisinopriL 2021- Yes [id number] 2.5mg Take 1 Univers 2.5 mg 5-19 12- tablet by ity of tablet 00:00: 04:59 mouth [place] 00 :00 daily for Medical 30 days. Branch fenofibrate 2021- Yes [id number] 134mg Take 1 Univers micronized -19 12- capsule by it y of 134 mg 00:00: 04:59 mouth [place] capsule 00 :00 daily for Medical 30 days. Branch lisinopriL 2021- Yes [id number] 2.5mg Take 1 Univers 2.5 mg -19 12- tablet by ity of tablet 00:00: 04:59 mouth [place] 00 :00 daily for Medical 30 days. Branch fenofibrate 2021- Yes [id number] 134mg Take 1 Univers micronized -19 12- capsule by it y of 134 mg 00:00: 04:59 mouth [place] capsule 00 :00 daily for Medical 30 days. Branch lisinopriL 2021- Yes [id number] 2.5mg Take 1 Univers 2.5 mg -19 12- tablet by ity of tablet 00:00: 04:59 mouth [place] 00 :00 daily for Medical 30 days. Branch furosemide 2021- Yes [id number] 40mg Take 1 Univers 40 mg 5-30 [...] s: atrial fibrillati on calcitrioL 2021- Yes [id number] .5ug Take 1 Univers 0.5 mcg 5-30 06-30 capsule by ity o f capsule 00:00: 04:59 mouth [place] 00 :00 daily for Medical 30 days. Branch insulin NPH 2021- Yes [id number] 5U inject 5 Univers (HUMULIN N 5-30 06-30 Units ity of NPH U-100 00:00: 04:59 [place] INSULIN) 00 :00 skin every Medic al 100 unit/mL evening Branc h injection for 30 days. atorvastati 2021- Yes [id number] 40mg Take 1 Univers n 40 mg 5-30 06-30 tablet by ity of tablet 00:00: 04:59 mouth at [place] 00 :00 bedtime Medical for 30 Branch days. carvediloL 2021- Yes [id number] 3.125mg Take 1 Univers 3.125 mg 5-30 06-30 tablet by ity o f tablet 00:00: 04:59 mouth 2 [place] 00 :00 (two) Medical times Branch daily with meals for 30 days. furosemide 2021- Yes [id number] 40mg Take 1 Univers 40 mg 5-30 [...] s: atrial fibrillati on calcitrioL 2021- Yes [id number] .5ug Take 1 Univers 0.5 mcg 5-30 06-30 capsule by ity o f capsule 00:00: 04:59 mouth [place] 00 :00 daily for Medical 30 days. Branch insulin NPH 2021- Yes [id number] 5U inject 5 Univers (HUMULIN N 5-30 06-30 Units ity of NPH U-100 00:00: 04:59 [place] INSULIN[place] 00 :00 skin every Medic al 100 unit/mL evening Branc h injection for 30 days. atorvastati 2021- Yes [id number] 40mg Take 1 Univers n 40 mg 5-30 06-30 tablet by ity of tablet 00:00: 04:59 mouth at [place] 00 :00 bedtime Medical for 30 Branch days. carvediloL 2021- Yes [id number] 3.125mg Take 1 Univers 3.125 mg 5-30 06-30 tablet by ity o f tablet 00:00: 04:59 mouth 2 [place] 00 :00 (two) Medical times Branch daily with meals for 30 days. furosemide 2021- Yes [id number] 40mg Take 1 Univers 40 mg 5-30 [...] s: atrial fibrillati on calcitrioL 2021- Yes [id number] .5ug Take 1 Univers 0.5 mcg 5-30 -30 capsule by ity o f capsule 00:00: 04:59 mouth [place] 00 :00 daily for Medical 30 days. Branch insulin NPH 2021- Yes [id number] 5U inject 5 Univers (HUMULIN N 5-30 06-30 Units ity of NPH U-100 00:00: 04:59 [place] INSULIN[place] 00 :00 skin every Medic al 100 unit/mL evening Branc h injection for 30 days. atorvastati 2021- Yes [id number] 40mg Take 1 Univers n 40 mg 5-30 06-30 tablet by ity of tablet 00:00: 04:59 mouth at [place] 00 :00 bedtime Medical for 30 Branch days. carvediloL 2021- Yes [id number] 3.125mg Take 1 Univers 3.125 mg 5-30 06-30 tablet by ity o f tablet 00:00: 04:59 mouth 2 [place] 00 :00 (two) Medical times Branch daily with meals for 30 days. metFORMIN Yes [id number] 500mg Take 1 U nivers 500 mg 3-02 tablet by ity of tablet 00:00: mouth 2 [place] 00 (two) Medical times Branch daily with meals. metFORMIN 2021-0 Yes [id number] 500mg Take 1 U nivers 500 mg 3-02 tablet by ity of tablet 00:00: mouth 2 [place] (two) Medical times Branch daily with meals. metFORMIN 2021-0 Yes [id number] 500mg Take 1 U nivers 500 mg 3-02 tablet by ity of tablet 00:00: mouth 2 [place] (two) Medical times Branch daily with meals. albuterol Yes [id number] 2{puff} Inhale 2 Univers 90 2-21 Puffs 2 ity of mcg/actuati 00:00: (two) [place] on inhaler 00 times Medical daily. Branch collagenase Yes [id number] Use as Univers 250 2-21 directed ity of unit/gram 00:00: by office Juan J as ointment 00 Medical Branch cyclobenzap Yes [id number] 10mg Take 1 Univers rine 10 mg 2-21 tablet by ity of tablet 00:00: mouth 2 [place] (two) Medical times Branch daily as needed for Muscle Spasms. dextrometho Yes [id number] 10mL Take 10 mL Univers rphan-guaif 2-21 [...] Pain (scale 4-6). melatonin 3 0 Yes [id number] 3mg Take 1 Univers mg tablet 2-21 tablet by ity o f 00:00: mouth at [place] 00 bedtime. Medical Branch ondansetron 0 Yes [id number] 4mg Take 1 Univers 4 mg 2-21 tablet by ity of disintegrat 00:00: mouth [place] ing tablet 00 every 8 Medica l (eight) Branch hours as needed for Nausea and Vomiting (N/V). albuterol 0 Yes [id number] 2{puff} Inhale 2 Univers 90 2-21 Puffs 2 ity of mcg/actuati 00:00: (two) [place] on inhaler 00 times Medical daily. Branch collagenase Yes [id number] Use as Univers 250 2-21 directed ity of unit/gram 00:00: by office Juan J as ointment 00 Medical Branch cyclobenzap Yes [id number] 10mg Take 1 Univers rine 10 mg 2-21 tablet by ity of tablet 00:00: mouth 2 [place] 00 (two) Medical times Branch daily as needed for Muscle Spasms. dextrometho Yes [id number] 10mL Take 10 mL Univers rphan-guaif 2-21 [...] for Pain (scale 4-6). melatonin 3 Yes [id number] 3mg Take 1 Univers mg tablet 2-21 tablet by ity o f 00:00: mouth at [place] 00 bedtime. Medical Branch ondansetron Yes [id number] 4mg Take 1 Univers 4 mg 2-21 tablet by ity of disintegrat 00:00: mouth [place] ing tablet 00 every 8 Medica l (eight) Branch hours as needed for Nausea and Vomiting (N/V). albuterol Yes [id number] 2{puff} Inhale 2 Univers 90 2-21 Puffs 2 ity of mcg/actuati 00:00: (two) [place] on inhaler 00 times Medical daily. Branch collagenase Yes [id number] Use as Univers 250 2-21 directed ity of unit/gram 00:00: by office Juan J as ointment 00 Medical Branch cyclobenzap Yes [id number] 10mg Take 1 Univers rine 10 mg 2-21 tablet by ity of tablet 00:00: mouth 2 [place] 00 (two) Medical times Branch daily as needed for Muscle Spasms. dextrometho 0 Yes [id number] 10mL Take 10 mL Univers rphan-guaif 2-21 [...] for Pain (scale 4-6). melatonin 3 Yes [id number] 3mg Take 1 Univers mg tablet 2-21 tablet by ity o f 00:00: mouth at [place] 00 bedtime. Medical Branch ondansetron Yes [id number] 4mg Take 1 Univers 4 mg 2-21 tablet by ity of disintegrat 00:00: mouth [place] ing tablet 00 every 8 Medica l (eight) Branch hours as needed for Nausea and Vomiting (N/V). Aspirin 81 Aspirin 81 2018- No Alexis [address] [facility] Mg Tab.chew Mg Tab.chew 10-26 Brooke Frankel 00:00: 00:00 Patient 00 :00 [facility] Diflunisal Diflunisal 2015- No Todd Wynn [address] [facility] (Dolobid) (Dolobid) 01-17 [facility] 500 Mg 500 Mg 00:00: 00:00 Patient Tablet, 500 Tablet, 500 00 :00 M edical Mg Oral Mg Oral Center Ondansetron Ondansetron 2015- No Todd Wynn [address] [facility] Hcl Hcl 01-17 [place] as [facility] s (Zofran*) 4 (Zofran*) 4 00:00: 00:00 needed for Patient Mg Tablet, Mg Tablet, 00 :00 Nausea M edical 4 Mg 4 Mg [place] Sublingual Sublingual Clopidogrel Clopidogrel Yes [address] Bisulfate Bisulfate Jostin (Plavix) 75 (Plavix) 75 P atient Mg [...] Mg Tablet Mg Tablet Day [facility] Patient [facility] Hydrocodone Hydrocodone Yes [address] [facility] Bit/Acetami Bit/Acetami Hours as [facility] nophen nophen needed for Patie nt ([facility] 10-325 10-325 Center Tablet) 1 [...] Mg Tablet Mg Tablet Patie nt Medical [place] Nitroglycer Nitroglycer Yes As Needed [facility] in in [facility] (Nitrostat) (Nitrostat) P atient 0.4 Mg 0.4 Mg Medical Tab.subl Tab.subl Center Omeprazole Omeprazole Yes [address] 20 Mg 20 Mg [facility] Capsule. Capsule.dr [facility] Simvastatin Simvastatin Yes [address] 80 Mg 80 Mg [facility] Tablet Tablet Patient Medical Center Tamsulosin Tamsulosin Yes Daily [facility] Hcl 0.4 Mg Hcl 0.4 Mg Esme es Cap.er.24h Cap.er.24h Pat [facility] Tramadol Tramadol Yes 50 Four Times C [...] es Tablet, 20 Tablet, 20 00:00 Navid blanco Mg Oral Mg Oral :00 [facility] Insulin Insulin 2016- No 40 7AM &Hs [facility] Human Nph Human Nph 10-15 Luke s (Humulin N) (Humulin N) 00:00 Patient 100 100 :00 Medical Units/Ml Units/Ml Center Ml, 40 Ml, 40 Sub-Q Sub-Q Naloxone Naloxone 2016- No .4 As Needed [facility] [...] Oral :00 M edical Center Ibuprofen Ibuprofen 2016- No [address] 600 Mg 600 Mg 08-16 Times A [facility] Tablet, 800 Tablet, 800 00:00 Day as Patient Mg Oral Mg Oral :00 needed for Med ical Mild Pain Center (1-3) Ranolazine Ranolazine No [address] [facility] (Ranexa) (Ranexa) 08-16 Day [facility] 500 Mg 500 Mg 00:00 Patient Tabsr, 1000 Tabsr, 1000 :00 M edical Mg Oral Mg Oral Center Insulin Insulin No [address] [facility] Human Nph Human Nph 04-20 Luke s (Humulin N) (Humulin N) 00:00 Patient 100 100 :00 Medical Units/Ml Units/Ml Center Ml, 32 Ml, 32 Units Units Subcutaneou Subcutaneou sly sly Insulin Insulin No [address] Regular, Regular, 04-20 [...] Mg Oral Mg Oral Center Insulin Insulin No [address] Regular, Regular, 03-22 Meals [facility] Human Human 00:00 Patient (Humulin R) (Humulin R) :00 M edical 100 Unit/1 100 Unit/[address] Ml Vial, 20 Ml Vial, 20 Units Sub-Q Units Sub-Q Omeprazole Omeprazole I St 40 Mg 40 Mg 06-17 [facility] Capsule., Capsule., 00:00 Patient :00 [facility] Insulin Insulin No 90 Twice A [facility] t Glargine Glargine [...] Unit Subcutaneou Subcutaneou sly sly Isosorbide Isosorbide 2015- No [address] Mononitrate Mononitrate 05-01 [facility] (Isosorbide (Isosorbide 00:00 Patient Mononitrate Mononitrate :00 M edical Er) 30 Mg Er) 30 Mg Cente r Tab.er.24h, Tab.er.24h, 60 Mg Oral 60 Mg Oral Metoprolol Metoprolol No [address] Tartrate 25 Tartrate 25 05-01 [facility] Mg Tablet, Mg Tablet, 00:00 Pa tient 25 Mg Oral 25 Mg Oral :00 [facility] Albuterol Albuterol No 90 As Needed [facility] [...] 00:00 Patient Mg Oral Mg Oral :00 [facility] Methocarbam Methocarbam No 500 Three [...] 00:00 Patient Mg Oral Mg Oral :00 [facility] Nitroglycer Nitroglycer 2015- No .4 [...] Mg Oral 40 Mg Oral Sucralfate Sucralfate [address] [facility] 1 Gm 1 Gm - Day [facility] Tablet, 1 Tablet, 1 00:00 Manjula ent Gm Oral Gm Oral :00 [facility] Temazepam Temazepam [address] (Restoril) (Restoril) 11-23 Theresa kes 30 Mg 30 Mg 00:00 Patient Capsule, 30 Capsule, 30 :00 M edical Mg Oral Mg Oral Center Tizanidine Tizanidine [address] Hcl 4 Mg Hcl 4 Mg 11-23 [facility] Capsule, 4 Capsule, 4 00:00 Pa tient Mg Oral Mg Oral :00 [facility] Trazodone Trazodone No [address] Hcl 50 Mg Hcl 50 Mg 11-23 Luke s Tablet, 50 Tablet, 50 00:00 Pa tient Mg Oral Mg Oral :00 [facility] Venlafaxine Venlafaxine 37.[address] [facility] Hcl 37.5 Mg Hcl 37.5 Mg 11-23 Day [facility] Tablet, Tablet, 00:00 Patient 37.5 Tab 37.5 Tab :00 Medical Oral Oral Center Cyclobenzap Cyclobenzap [address] rine Hcl 10 rine Hcl 10 12-19 Times A [facility] Mg Tablet, Mg Tablet, 00:00 Day Pa tient 10 Mg Oral 10 Mg Oral :00 [facility] ical Center Gabapentin Gabapentin [address] 300 Mg 300 Mg 12-19 Times A [facility] Capsule, Capsule, 00:00 Day Patien t 600 Mg Oral 600 Mg Oral :00 M [facility] Pregabalin Pregabalin [address] [facility] (Lyrica) (Lyrica) 01-02 Day [facility] 150 Mg 150 Mg 00:00 Patient Capsule, Capsule, :00 Medical 150 Mg Oral 150 Mg Oral C enter Zolpidem Zolpidem Qhs [facility] Tartrate Tartrate 01-02 [facility] (Ambien) 10 (Ambien) 10 00:00 Patient Mg Tablet, Mg Tablet, :00 Med ical 10 Mg Oral [address] Immunizations Ordered Filled Immunization Date Status Comments Sour e Immunization Name Name Influenza Virus 2021-01-16 Completed Universit y of Vaccine 00:00:00 [facility] [facility] Influ[facility] Virus 2021-01-16 Completed [facility] Vaccine 00:00:00 [facility] Influenza Virus 2021-01-16 Completed [facility] Vaccine 00:00:00 [facility] SARS-COV-2 COVID-19 2020-10-16 Completed Unive rsity of PEDRO/J&J VACCINE 00:00:00 [facility] SARS-COV-2 COVID-19 2020-10-16 Completed Unive rsity of PEDRO/J&J VACCINE 00:00:00 [facility] SARS-COV-2 COVID-19 2020-10-16 Completed Unive rsity of PEDRO/J&J VACCINE 00:00:00 [facility] Influenza Virus 2020-01-21 Completed [facility]it [facility] of Vaccine 00:00:00 [facility] Influenza Virus 2020-01-21 Completed [facility]it [facility] of Vaccine 00:00:00 [facility] Influenza Virus 2020-01-21 Completed [facility]it y of Vaccine 00:00:00 [facility] Zoster Vaccine 2019-07-17 Completed University of Recombinant 00:00:00 [facility] Zoster Vaccine 2019-07-17 Completed University of Recombinant 00:00:00 [facility] Zoster Vaccine 2019-07-17 Completed University of Recombinant 00:00:00 [facility] Td 2019-03-29 Completed University of 00:00:00 [facility] Td 2019-03-29 Completed University of 00:00:00 [facility] Td 2019-03-29 Completed University of 00:00:00 [facility] Influenza Virus 2018-02-18 Completed Universit [facility] of Vaccine 00:00:00 [facility] Pneumococcal 2018-02-18 Completed University o f Polysaccharide, 00:00:00 [place] [facility] PPSV23 (PNEUMOVAX) [place] Influenza Virus 2018-02-18 Completed [facility]it [facility] of Vaccine 00:00:00 [facility] Pneumococcal 2018-02-18 Completed University o f Polysaccharide, 00:00:00 [place] [facility] PPSV23 (PNEUMOVAX) [place] Influenza Virus 2018-02-18 Completed [facility]it [facility] of Vaccine 00:00:00 [facility] Pneumococcal 2018-02-18 Completed University o f Polysaccharide, 00:00:00 [place] [facility] PPSV23 (PNEUMOVAX) [place] Influenza Virus 2008-03-19 Completed Universit [facility] of Vaccine 00:00:00 [facility] Pneumococcal 2008-03-19 Completed University o f Polysaccharide, 00:00:00 [place] [facility] PPSV23 (PNEUMOVAX) [facility] Influenza Virus 2008-03-19 Completed Universit y of Vaccine 00:00:00 [facility] Pneumococcal 2008-03-19 Completed University o f Polysaccharide, 00:00:00 [place] [facility] PPSV23 (PNEUMOVAX) [facility] Influenza Virus 2008-03-19 Completed Universit y of Vaccine 00:00:00 [facility] Pneumococcal 2008-03-19 Completed University o f Polysaccharide, 00:00:00 [place] [facility] PPSV23 (PNEUMOVAX) [facility] Vital Signs Vital Name Observation Time Observation Value Comments Source Systolic blood 2021-11-09 23:00:00 124 mm[Hg] Univer sity of pressure [facility] Diastolic blood 2021-11-09 23:00:00 69 mm[Hg] Unive rsity of [facility] Heart rate 2021-11-09 23:00:00 72 /min [facility] Respiratory rate 2021-11-09 23:00:00 25 /min [facility] saturation in 2021-11-09 23:00:00 98 /min [place] of Arterial blood by [place] [facility] Pulse oximetry [facility] Body temperature 2021-11-09 20:28:39 37.22 Sandy [facility] Body height 2021-11-09 20:16:00 170.2 cm [facility] Body weight 2021-11-09 20:16:00 71.215 kg [facility] BMI 2021-11-09 20:16:00 24.59 kg/m2 [facility] Systolic blood 2021-11-05 10:00:00 134 mm[Hg] Univer sity of pressure [facility] Diastolic blood 2021-11-05 10:00:00 78 mm[Hg] Unive rsity of pressure [facility] Heart rate 2021-11-05 10:00:00 81 /min [facility] Body temperature 2021-11-05 08:10:00 36.28 Sandy [facility] ersity [facility] Respiratory rate 2021-11-05 08:00:00 18 /min [facility] Oxygen saturation in 2021-11-05 08:00:00 99 /min [facility] Arterial blood by [facility] Pulse oximetry [facility] Body height 2021-11-05 05:48:00 170.2 cm [facility] Body weight 2021-11-05 05:48:00 71.215 kg [facility] BMI 2021-11-05 05:48:00 24.59 kg/m2 [facility] Procedures Procedure Date / Time Performing Clinician Source Performed XR CHEST 1 VW 2021-11-09 21:07:00 Troy Ku Mckenzie [facility] POCT GLUCOSE 2021-11-09 20:25:00 Troy Ku [facility] (AUTOMATED) [facility] MAGNESIUM 2021-11-09 20:19:00 Troy Ku [facility] TROPONIN I 2021-11-09 20:19:00 Troy Ku Mckenzie [facility] COMP. METABOLIC PANEL 2021-11-09 20:19:00 Troy Ku [facility] ([id number]) [facility] CBC WITH DIFF 2021-11-09 20:19:00 Troy Ku [facility] N-TERMINAL PRO-BNP 2021-11-09 20:19:00 Troy Ku [facility] XR CHEST 1 VW 2021-11-05 06:38:35 Mihaela Martin [facility] [id number] 2020-08-11 00:00:00 ALDMO [facility] [id number] 2020-08-11 00:00:00 ALDMO [facility] [id number] 2020-08-11 00:00:00 ALDMO [facility] [id number] 2020-08-11 00:00:00 ALDMO [facility] Computed tomography 2017-10-24 00:00:00 ALEXIS [facility] Patient angiography of [facility] CT angiography of chest 2017-10-23 00:00:00 KHAI WAHL HI [facility] Computed tomography of 2017-10-23 00:00:00 KHAI WAHL [facility] I [facility] Patient [facility] radiopaque contrast Computed tomography of 2017-04-04 00:00:00 JACQUELYN MONTES DE OCA LUCY S t Jostin Patient brain without [facility] radiopaque contrast Computed tomography of 2017-04-04 00:00:00 JACQUELYN MONTES DE OCA [facility] S t [facility]ost[facility] Patient cervical spine without Medical C enter contrast US abdomen complete 2017-03-08 00:00:00 SCOTT AMIN [facility] Patient [facility] Center Encounters Start End Encounter Admission Attending Care Care Encounter Source Date/Time Date/Time Type Type Clinicians Facility Department ID 2021-06-17 Outpatient 3 [id number] ENCKY MALDONADO [id number] ENCKY 10:24:03 [id number] 2021-06-17 Outpatient 3 [id number] ENCKY REF [id number] ENCKY 10:22:04 10230 2020-08-23 Inpatient HCACL FERNANDO [facility] 17:41:00 [id number] [facility] 2020-04-04 Inpatient Marko, HCAMN HCAMN [facility] 14:40:00 Harshal 48236 [facility] 2019-10-15 Inpatient RADHA Shah, HCAPM ENDO [facility] 15:30:00 Finn 02764 [facility] 2021-11-09 2021-11-09 Emergency X KINGS, K [facility] ERT [id number] Univers 15:15:00 18:32:00 ity [facility] 2021-11-09 2021-11-09 Emergency Kings, K [facility] [id number] Univers 15:15:00 18:32:00 Mckenzie PEREZ [id number] i ty [facility] 4.2.7.2.686 [facility] [id number] [facility] 084 Branch 2021-11-05 2021-11-05 Emergency X [facility] ERT [id number] Univers 00:44:00 06:53:00 MIHAELA baugh [facility] 2021-11-05 2021-11-05 Emergency [facility] [id number] Univers 00:44:00 06:53:00 Mihaela PEREZ [id number] ity [facility] 4.2.7.2.686 [facility] [id number] [facility] 084 Branch 2021-11-04 2021-11-04 Transition RIVAS Feliciano [id number] Univers 00:00:00 00:00:00 of Jennifer Micaela Aleah DUQUE 350.1.13.10 it y of VUBRUCE 4.2.7.2.686 [facility] [id number] [facility] 403 Branch 2021-11-02 2021-11-03 Outpatient X BRAYDON [facility] [id number] Univers 22:35:00 15:46:00 OC [facility] 2021-10-27 2021-10-29 Outpatient X DERRICK [facility] DARIUS [id number] Univers 17:41:00 14:03:00 ANA MARIA [facility] 2021-07-21 2021-07-21 Outpatient Wong_H VFP VFP [id number] Village 06:58:00 06:58:00 [id number] Family Practic e 2020-10-30 2020-11-05 Inpatient EM Debi, [facility] [id number] - [facility] 16:50:00 13:52:00 Fede 75380 [facility] 2020-10-31 2020-10-31 Outpatient AMELIA Carrera LABO [id number] [facility] 08:22:00 08:22:00 Fede 40140 [facility] 2020-10-28 2020-10-28 Hospital Radiology [facility] [id number] 08:30:17 23:59:00 Encounter Sera 350.1.13.10 [place] 4.2.7.2.686 Carmen [id number] 2020-10-12 2020-10-12 Outpatient R CHANTELLE [facility] [id number] Univers 14:00:00 14:50:48 PERLA [facility] 2020-10-06 2020-10-06 [facility] [id number] 10:43:51 11:59:29 Visit Gina Perez 350.1.13.10 [place] 4.2.7.2.686 [facility] [id number] [address] 2020-08-19 2020-08-19 Outpatient PEGGY THORPEA [id number] [facility] 07:13:00 07:13:00 DOES_NOT [id number] [facility] 2020-08-10 2020-08-14 Inpatient AEMLIA Carey INTE.02 [id number] [facility] 09:09:00 18:56:00 Johnie 65532 [facility] 2017-10-23 2017-10-27 Discharged 1 BROOKE, [facility] [id number] 17:29:00 16:54:00 Inpatient ALEXIS 90 Luke s [facility] 2017-04-03 2017-04-04 [id number] 23:17:00 03:53:00 Emergency LAIRD 56 Luke s Room [facility] 2017-03-05 2017-03-09 Discharged ER PHILIP, [facility] [id number] 06:54:00 10:58:00 Inpatient NICHELLE 44 Luke s (obs) [facility] 2017-01-04 2017-01-05 Discharged [facility] [id number] 10:33:00 18:56:00 Inpatient 61 Luke s (obs) [facility] Results Test Description Test Time Test Comments Results Result Comments Source TROPONIN I 2021-11-09 20:57:59 Test Item Value Reference Range Interpretation Comme nts TROPONIN I (test code = 0.017 ng/mL See_Comment [Au tomated message] The 1511843366) system which ge nerated this result tra [...] biotin. Lab Interpretation Normal (test code = 59220-8) [facility] [id number] 20:54:59 Test Item Value Reference Range Interpretation Comments NT-proBNP (test code 6490 pg/mL See_Comment H [Autom ated = 0720235528) message] The system which generated this result transmitted reference range : <=125. The reference range was not used to interpret this result as normal/abnormal . DIANE (test code = DIANE) Biotin has been reported to cause a negative bias, interpret results relative to patient's use of biotin. Lab Interpretation Abnormal (test code = 84350-4) [facility]2022-[facility]-21 20:46:35 Test Item Value Reference Range Interpretation Comments MAGNESIUM (test code = 0038988677) 1.5 mg/dL 1.7-2.4 L Lab Interpretation (test code = Abnormal 51564-4) [facility]OL[facility] PANEL (75087)2021-11-09 20:46:34 Test Item Value Reference Range Interpretation Comments NA (test code = 140 mmol/L 135-145 0316791330) K (test code = 3.9 mmol/L 3.5-5.0 2909209421) CL (test code = 111 mmol/L 98-108 H 8003687157) CO2 TOTAL (test code = 16 mmol/L 23-31 L 4238065769) AGAP (test code = 2-16 4835218112) BUN (test code = 14 mg/dL 7-23 2016191754) GLUCOSE (test code = 189 mg/dL 70-110 H 6739453416) CREATININE (test code = 0.66 mg/dL 0.60-1.25 4976654749) TOTAL BILI (test code = 0.8 mg/dL 0.1-1.8 4321525010) CALCIUM (test code = 8.3 mg/dL 8.6-10.6 L 3053913583) T PROTEIN (test code = 6.5 g/dL 6.3-8.2 7023721281) ALBUMIN (test code = 3.3 g/dL 3.5-5.0 L 1999239107) ALK PHOS (test code = 136 U/L 34-122 H 2464092653) ALTv (test code = 18 U/L 5-50 1742-6) AST(SGOT) (test code = 26 U/L 13-40 6436675412) eGFR (test code = mL/min/1.73m2 9594072772) DIANE (test code = DIANE) Association of [...] tests). Lab Interpretation Abnormal (test code = 71115-1) [facility] WITH [id number] 20:33:30 Test Item Value Reference Range Interpretation Comments WBC (test code = See_Comment [Automated 7278-2) message] The sy stem which generated this [...] RDW-SD (test code = 45.4 fL 38.5-51.6 43062-1) RDW-CV (test code = 14.2 % 12.1-15.4 788-0) PLT (test code = See_Comment [Automated 777-3) message] The sy stem which generated this result transmitted reference range : 150 - 328 10*3/ ?L. The reference r batsheva was not used to interpret this result as normal/abnormal . MPV (test code = 9.8 fL 9.8-13.0 15932-3) NRBC/100 WBC (test See_Comment [Automat ed code = 3736726373) message] The system which generated this result transmitted reference range : 0.0 - 10.0 /100 WBCs. The refer ence range was not u sed to interpret th is result as normal/abnormal . NRBC x10^3 (test code <0.01 See_Comment [Auto mated = 7530795158) message] The s ystem which generated this result transmitted reference range : 10*3/?L. The reference range was not used to interpret this result as normal/abnormal . GRAN MAT (NEUT) % 62.3 % (test code = 770-8) IMM GRAN % (test code 0.80 % = 0020289595) LYMPH % (test code = 25.1 % 736-9) MONO % (test code = 6.7 % 5905-5) EOS % (test code = 4.7 % 713-8) BASO % (test code = 0.4 % 706-2) GRAN MAT x10^3(ANC) 4.76 10*3/uL 1.99-6.95 (test code = 9830554155) IMM GRAN x10^3 (test 0.06 10*3/uL 0.00-0.06 code = 7285329203) LYMPH x10^3 (test code 1.92 10*3/uL 1.09-3.23 = 731-0) MONO x10^3 (test code 0.51 10*3/uL 0.36-1.02 = 742-7) EOS x10^3 (test code = 0.36 10*3/uL 0.06-0.53 711-2) BASO x10^3 (test code 0.03 10*3/uL 0.01-0.09 = 704-7) Lab Interpretation Abnormal (test code = 97554-6) [facility]2021-11-09 20:27:39 Test Item Value Reference Range Interpretation Comments POCT GLU (test code = 8685543036) 190 mg/dL 70-110 H Lab Interpretation (test code = Abnormal 88097-3) [facility] [id number] 11:52:00 Test Item Value Reference Range Interpretation Comments GLUCOSE BEDSIDE TESTING (test code = 92 mg/dL 70-110 N GLUBED) GLUCOSE BEDSIDE [id number] 08:05:00 Test Item Value Reference Range Interpretation Comments GLUCOSE BEDSIDE TESTING (test code = 62 mg/dL 70-110 L GLUBED) GLUCOSE BEDSIDE [id number] 20:40:00 Test Item Value Reference Range Interpretation Comments GLUCOSE BEDSIDE TESTING (test code 105 mg/dL 70-110 N = GLUBED) GLUCOSE BEDSIDE [id number] 17:02:00 Test Item Value Reference Range Interpretation Comments GLUCOSE BEDSIDE TESTING (test code 128 mg/dL 70-110 H = GLUBED) GLUCOSE BEDSIDE [id number] 16:37:00 Test Item Value Reference Range Interpretation Comments GLUCOSE BEDSIDE TESTING (test code 105 mg/dL 70-110 N = GLUBED) GLUCOSE BEDSIDE [id number] 08:17:00 Test Item Value Reference Range Interpretation Comments GLUCOSE BEDSIDE TESTING (test code = 88 mg/dL 70-110 N GLUBED) GLUCOSE BEDSIDE [id number] 19:45:00 Test Item Value Reference Range Interpretation Comments GLUCOSE BEDSIDE TESTING (test code 115 mg/dL 70-110 H = GLUBED) GLUCOSE BEDSIDE [id number] 18:13:00 Test Item Value Reference Range Interpretation Comments GLUCOSE BEDSIDE TESTING (test code = 74 mg/dL 70-110 N GLUBED) GLUCOSE BEDSIDE [id number] 17:29:00 Test Item Value Reference Range Interpretation Comments GLUCOSE BEDSIDE TESTING (test code = 44 mg/dL 70-110 LL GLUBED) GLUCOSE BEDSIDE [id number] 12:26:00 Test Item Value Reference Range Interpretation Comments GLUCOSE BEDSIDE TESTING (test code = 96 mg/dL 70-110 N GLUBED) GLUCOSE BEDSIDE [id number] 08:21:00 Test Item Value Reference Range Interpretation Comments GLUCOSE BEDSIDE TESTING (test code = 77 mg/dL 70-110 N GLUBED) GLUCOSE BEDSIDE [id number] 20:12:00 Test Item Value Reference Range Interpretation Comments GLUCOSE BEDSIDE TESTING (test code = 91 mg/dL 70-110 N GLUBED) GLUCOSE BEDSIDE [id number] 16:42:00 Test Item Value Reference Range Interpretation Comments GLUCOSE BEDSIDE TESTING (test code 106 mg/dL 70-110 N = GLUBED) GLUCOSE BEDSIDE [id number] 11:49:00 Test Item Value Reference Range Interpretation Comments GLUCOSE BEDSIDE TESTING (test code = 89 mg/dL 70-110 N GLUBED) GLUCOSE BEDSIDE [id number] 08:22:00 Test Item Value Reference Range Interpretation Comments GLUCOSE BEDSIDE TESTING (test code = 68 mg/dL 70-110 L GLUBED) GLUCOSE BEDSIDE [id number] 20:05:00 Test Item Value Reference Range Interpretation Comments GLUCOSE BEDSIDE TESTING (test code 137 mg/dL 70-110 H = GLUBED) GLUCOSE BEDSIDE [id number] 16:42:00 Test Item Value Reference Range Interpretation Comments GLUCOSE BEDSIDE TESTING (test code = 98 mg/dL 70-110 N GLUBED) GLUCOSE BEDSIDE [id number] 11:13:00 Test Item Value Reference Range Interpretation Comments GLUCOSE BEDSIDE TESTING (test code 118 mg/dL 70-110 H = GLUBED) GLUCOSE BEDSIDE [id number] 07:37:00 Test Item Value Reference Range Interpretation Comments GLUCOSE BEDSIDE TESTING (test code 140 mg/dL 70-110 H = GLUBED) COMPREHENSIVE METABOLIC [id number] 06:34:00 Test Item Value Reference Range Interpretation [...] TOTAL (test code = ALKP) CBC W/AUTO [id number] 06:25:00 Test Item Value Reference Range Interpretation [...] DIFF/SCN CRITERIA = MDIFF) - CT ABDOMEN [id number] 03:09:00 [facility] 1960 Sex: M Name: FAITH VANCE [facility] : 1960 Age/S: 60 / M [id number] Unit #: [id number] Loc: [place] [address] Phys: Fede Carrera DO Acct: [id number] Dis Date: Status: ADM IN PHONE #:[phone] Exam Date: 10/31/20201919 FAX #: Reason: NAUSEA, VOMITING, DIARRHEA EXAMS: CPT: [id number] CT ABDOMEN W/CONTRAST 49700 EXAM: - CT ABDOMEN W/CONTRAST LOCATION: H61 CLINICAL HISTORY/INDICATION: NAUSEA, VOMITING, DIARRHEA COMPARISON: KUB 10/31/2020. CT 08/23/2020. TECHNIQUE: Axial CT images ofthe abdomen were obtained from with IV contrast [...] technique. FINDINGS: LOWER THORAX: Moderate bilateral pleural effusions with compressive atelectasis in bilateral lower lobes. Pacemaker leads are present. LIVER: No focal hepatic lesions or intrahepatic biliary dilatation. GALLBLADDER/BILIARY SYSTEM: Cholecystectomy. Dilatation of the common bile duct up to 15 mm stable. No intrahepatic biliary dilatation. PANCREAS: Unremarkable. SPLEEN: No splenomegaly or focal lesions. ADRENALS: No adrenal nodules. KIDNEYS/URETERS: No [...] small bowel and colon. There is no smallbowel obstruction. There is no PAGE 1 Signed Report (CONTINUED) Name: FAITH VANCE : 1960 Age/S: 60 / M [id number] Unit #: [id number] Loc: [place] [address] Phys: Doramargareth Fede mcclellan DO Acct: [id number] Dis Date: Status: ADM IN PHONE #: [phone] Exam Date: 10/31/20201919 FAX #: Reason: NAUSEA, VOMITING, DIARRHEA EXAMS: CPT: [id number] CT ABDOMEN W/CONTRAST 71444 <Continued> small bowel wall thickening. The appendix is normal. There is no evidence of colitisno colonic obstruction. Evaluation of the distal sigmoid colon is limited due to streak artifact from barium. EXTERNAL SOFT TISSUE: No abnormalities. BONES: Postsurgical changes of median sternotomy. No acute fractures. Posterior laminectomies at L4-L5 with posterior fusion. Posterior fusion constructconsists of a left-sided transpedicular screw at L4, left transarticular screw at L5-S1 and a singlevertical erika. There are solid bilateral posterior fusion [...] 11/01/2020 (311) PAGE 2 Signed ReportGLUCOSE BEDSIDE [id number] 21:34:00 Test Item Value Reference Range Interpretation Comments GLUCOSE BEDSIDE TESTING (test code 161 mg/dL 70-110 H = GLUBED) GLUCOSE BEDSIDE [id number] 17:32:00 Test Item Value Reference Range Interpretation Comments GLUCOSE BEDSIDE TESTING (test code 136 mg/dL 70-110 H = GLUBED) - XR ABDOMEN 1 [id number] 12:44:00 [facility] 1960 Sex: M Name: FAITH VANCE [facility] : 1960 Age/S: 60 / M [id number] Unit #: [id number] Loc: [place] [address] Phys: Fede Carrera DO Acct: [id number] Dis Date: Status: ADM IN PHONE #: [phone] Exam Date: 10/31/2020 1227 FAX #: Reason: Abdominal pain in the lower qudarants EXAMS: C PT: [id number] XR ABDOMEN 1 V 86717 Fluoro Time: DAP (Gy m2): Air Kerma (mGy): CLINICAL INFORMATION: Lower abdominal pain.. Dictation location: T 18 Comparison: 09/09/2010 showed nonspecific bowel gas pattern. Technique: Supine view. Findings. There is barium mixed with stool throughout the length of the nondilated colon. The bowel gas pattern is otherwise nonspecific with a few air- filled loops of small bowel also noted. There is postoperative change in the spine. No apparent urologic calcification. IMPRESSION: Residual barium in the colon. Mild air-filled prominence of a few small bowel loops. Overall nonspecific appearance. at 1244 Reported and signed by: Ananth Schmidt M.D. CC: Nika Martin MD; Fede Carrera DO PAGE1 Signed Report Name: FAITH VANCE [facility] : 1960 Age/S: 60 / M [address]: [id number] Loc: [place] [address] Phys: Fede Carrera DO Acct: [id number] Dis Date: Status: ADM IN PHONE #: [phone] Exam Date: 10/31/2020 1227 FAX #: Reason: Abdominal pain in the lower qudarants EXAMS: CPT: [id number] XR ABDOMEN 1 V 76545 Fluoro Time: DAP (Gy m2): Air Kerma (mGy): <Continued> Technologist: Cecelia Arias RT(R) Trnscb Date/Time: 10/31/2020 (3270) [email or web address] Orig Print D/T: S: 10/31/2020 (4620) PAGE 2 Signed ReportGLUCOSE BEDSIDE [id number] 11:58:00 Test Item Value Reference Range Interpretation Comments GLUCOSE BEDSIDE TESTING (test code 105 mg/dL 70-110 N = GLUBED) GLUCOSE BEDSIDE [id number] 08:01:00 Test Item Value Reference Range Interpretation Comments GLUCOSE BEDSIDE TESTING (test code 106 mg/dL 70-110 N = GLUBED) [id number] 22:46:00 Test Item Value Reference Range Interpretation [...] yby method. Completed by Nursing: NOGLUCOSE BEDSIDE [id number] 21:55:00 Test Item Value Reference Range Interpretation Comments GLUCOSE BEDSIDE TESTING (test code 119 mg/dL 70-110 H = GLUBED) [id number] 19:33:00 Test Item Value Reference Range Interpretation [...] method. Completed by Nursing: NOCoronavirus 2019 nCoV [id number] 18:46:00 Test Item Value Reference Range Interpretation Comments Coronavirus 2019 nCoV Negative Negative Per ma nufacturer, Bedside (test code = negativ e results should [id number]) be treated aspresumptive a nd, if inconsistent [...] with COVID-19. Spec Comments: NNT PRO-BRAIN NATRIURETIC [id number] 15:51:00 Test Item Value Reference Range Interpretation Comments NT PRO-BRAIN NATRIURETIC PEPTI 6079 PG/ML 0-100 H (test code = PROBNP) Completed by Nursing: [id number] 15:51:00 Test Item Value Reference Range Interpretation [...] yby method. Completed by Nursing: NOBASIC METABOLIC [id number] 15:51:00 Test Item Value Reference Range Interpretation [...] Completed by Nursing: NO- XR CHEST 1 [id number] 15:42:00 [facility] 1960 Sex: M Name: FAITH VANCE [facility] : 1960 Age/S: 60 / M [address] Unit #: [id number] Loc: [place] [address] Phys: Todd Jacobo MD Acct: [id number] Dis Date: Status: PRE ER PHONE #: [phone] Exam Date: 10/30/2020 1524 FAX #: Reason: chest pain EXAMS: CPT: [id number] XR CHEST 1 V 88042 Fluoro Time: DAP (Gy m2): Air Kerma [...] PAGE 1 Signed Report Name: FAITH VANCE [facility] : 1960 Age/S: 60 / M [address] Unit #: [id number] Loc: [place] [address] Phys: Todd Jacobo MD Acct: [id number] Dis Date: Status: PRE ER PHONE #: [phone] Exam Date: 10/30/2020 1524 FAX #: Reason: chest pain EXAMS: CPT: [id number] XR CHEST 1 V 21304 Fluoro Time: DAP (Gy m2): Air Kerma (mGy): <Continued>Technologist: Kim Andrews RT(R)(CT) Trnscb Date/Time: 10/30/2020 (1542) t.KATHRYNR.RB24 Orig Print D/T: S: 10/30/2020 (9542) PAGE 2 Signed ReportCBC W/O [id number] 15:31:00 Test Item Value Reference Range Interpretation [...] 9.70 fL 7.0-9.6 H MPV) BASIC METABOLIC [id number] 21:42:00 Test Item Value Reference Range Interpretation [...] 9.6 mg/dL 8.0-10.5 N CA) HEPATIC FUNCTION [id number] 21:42:00 Test Item Value Reference Range Interpretation [...] 114 IUnit/L 20-125 N code = ALKP) [id number] 21:42:00 Test Item Value Reference Range Interpretation Comments LIPASE (test code = LIP) 70 U/L 13-57 H [id number] 21:42:00 Test Item Value Reference Range Interpretation [...] by method. UA RFLX MICR CULT IF [id number] 21:37:00 Test Item Value Reference Range Interpretation [...] INDWELLING CATH (CEDENO)Cath Status: Under 72 hoursPROTHROMBIN [id number] 21:35:00 Test Item Value Reference Range Interpretation [...] (to prevent recurrent infar ct). THROMBOPLASTIN TIME [id number] 21:35:00 Test Item Value Reference Range Interpretation Comments THROMBOPLASTIN TIME 41.7 Seconds 25.0-39.5 H Therape utic Range: PARTIAL (test code = 50.4 - 88.3 Seconds PTT) Effective 09/04/2018 CBC W/AUTO [id number] 21:29:00 Test Item Value Reference Range Interpretation [...] = MDIFF) - CT ABD PELVIS W/O [id number] 20:49:00 [facility] 1960 Sex: M Name: FAITH VANCE [facility] [place] : 1960 Age/S: 60 / M [address] [place] [address] Unit #: [id number] Loc: [place] [address] Phys: Gisel Eugene [facility] Acct: [id number] Dis Date: Status: REG ER PHONE #: [phone] Exam Date: 08/23/20202024 FAX #: [phone] Reason: DIFFUSE ABDOMINAL PAIN EXAMS: CPT CODE: [id number] CT ABD PELVIS W/O CONT 85540 Clinical indication: Diffuse abdominal pain. Contrast - No IV contrast was given. No oral contrast was given Noncontrast phase - abdomen and pelvis including all of kidneys Reconstructions - coronal and sagittal planes Automated exposure reduction(Auto mA/Smart mA) was utilized in compliance with ACR Image Wisely with DLP of 694.8 mGy-cm. COMPAR BARBARA: Prior CT abdomen and pelvis dated 01/03/2019. FINDINGS: Statements: Lack of intravenous contrast compromises evaluation of abdominopelvic organs and vasculature. Lack of oral contrast compromises evaluation of bowel. Thoracic: Small left [...] 1 Signed Report (CONTINUED) Name: FAITH VANCE [facility] Jonn Mejia : 1960 Age/S: 60 / M [address] [place] [address] Bl Unit #:[id number] Loc: [place] [address] Phys: Gisel Eugene Acct: [id number] Dis Date: Status: REGER PHONE #: [phone] Exam Date: 08/23/20202024 FAX #: [phone] Reason: DIFFUSE ABDOMINAL PAIN EXAMS: CPT CODE: [id number] CT ABD PELVIS W/O CONT 32822 <Continued> Peritoneum/Other: No extraluminal air. No extraluminal fluid. IMPRESSION: 1. No acute process in the abdomen and pelvis. 2.Hepatic steatosis. 3. Cholecystectomy. Mild prominence of the [...] Fanta(R)(CT) CTDI: DLP: Trnscb Date/Time: 08/23/2020 (2048) t.KATHRYNR.VB9 Orig Print D/T: S: 08/23/2020 (2051) PAGE 2 Signed ReportBASIC METABOLIC [id number] 07:51:00 Test Item Value Reference Range Interpretation [...] >3 months. [Automated mess age] The system Bench generated this result transmitted ref erence range: >=60. Th e reference range was not used to int erpret this result as normal/abnormal . 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 [facility] BASIC METABOLIC [id number] 08:00:00 Test Item Value Reference Range Interpretation [...] 9.9 mg/dL 8.0-10.5 N CA) CBC W/AUTO [id number] 07:08:00 Test Item Value Reference Range Interpretation [...] DIFF REQUIRED (test code NO = MDIFF) [id number] 05:21:00 Test Item Value Reference Range Interpretation Comments GLUBED (test code = 150 MG/DL 70-110 H Performe d by certified GLUBED) 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 [facility] [id number] 21:13:00 Test Item Value Reference Range Interpretation Comments GLUBED (test code = 129 MG/DL 70-110 H Performe d by certified GLUBED) 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 [facility] [id number] 16:48:00 Test Item Value Reference Range Interpretation Comments GLUBED (test code = 116 MG/DL 70-110 H Performe d by certified GLUBED) 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 [facility] [id number] 12:18:00 Test Item Value Reference Range Interpretation Comments GLUBED (test code = 136 MG/DL 70-110 H Performe d by certified GLUBED) 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 [facility] [id number] 12:18:00 Test Item Value Reference Range Interpretation Comments GLUBED (test code = 151 MG/DL 70-110 H Performe d by certified GLUBED) 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 [facility] CBC W/AUTO [id number] 07:32:00 Test Item Value Reference Range Interpretation [...] (test code NO = MDIFF) BASIC METABOLIC [id number] 07:29:00 Test Item Value Reference Range Interpretation [...] code = 9.0 mg/dL 8.0-10.5 N CA) [id number] 05:19:00 Test Item Value Reference Range Interpretation Comments GLUBED (test code = 135 MG/DL 70-110 H Performe d by certified GLUBED) 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 [facility] [id number] 20:31:00 Test Item Value Reference Range Interpretation Comments GLUBED (test code = 189 MG/DL 70-110 H Performe d by certified GLUBED) 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 [facility] [id number] 17:41:00 Test Item Value Reference Range Interpretation Comments GLUBED (test code = 140 MG/DL 70-110 H Performe d by certified GLUBED) 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 [facility] - CTA CHEST FOR [id number] 13:48:00 [facility] : 1960 Sex: M Name: FAITH VANCE [facility] [place] : 1960 Age/S: 60 / M [address] [place] [address] Unit #: [id number] Loc: [place] [address] Phys: Gina Gonzalez [employer]PER[employer] Acct: [id number] Dis Date: Status: ADM INPHONE #: [phone] Exam Date: 08/12/2020 0912 FAX #: [phone] Reason: CP, elevated D-dimer EXAMS: CPT CODE: [id number] [place] [address] PROCEDURE: CTA CHEST INDICATION: CP, elevated D-dimer; chest pain; rule out PE COMPARISON: CXR 08/10/2020, CT chest 06/24/2017 TECHNIQUE: CTA of the pulmonary arteries was performed with intravenous contrast. Helical imaging performed apices to the lung bases. Multiplanar and 3- D MIP angiographic reconstructions were obtained at the [...] VASCULAR STRUCTURES: Mild scattered calcified plaque thoracic aorta.No aneurysm. Incomplete opacification without evidence for dissection. [...] 1 Signed Report (CONTINUED) Name: FAITH VANCE [facility] [place] : 1960 Age/S: 60 / M [address] [place] [address] Unit #: [id number] Loc: [place] [address] Phys: Gina Gonzalez NP Acct: [id number] Dis Date: Status: ADM IN PHONE #: [phone] Exam Date: 08/12/2020911 FAX #: [phone] Reason: CP, elevated D-dimer EXAMS: CPT CODE: [id number] [address] <Continued> contrastenhancement. No acute abnormality demonstrated. MUSCULOSKELETAL: Healed median sternotomy. No acute skeletal abnormality. IMPRESSION: 1. Negative for pulmonary embolic disease within limitations noted. 2. Atherosclerosis. 3. Coronary arterial calcifications with prior coronary arterial stents and CABG. 4. Interstitial edema. No consolidation. 5. Small bilateral pleural effusions. SL: [id number] at 1348 Reported and signed by: Christiano Piña M.D. 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 [facility] CBC W/AUTO [id number] 09:17:00 Test Item Value Reference Range Interpretation [...] (test code NO = MDIFF) BASIC METABOLIC [id number] 08:28:00 Test Item Value Reference Range Interpretation [...] code = 8.3 mg/dL 8.0-10.5 N CA) [id number] 08:28:00 Test Item Value Reference Range Interpretation Comments PHOSPHOROUS (test code = PHOS) 3.6 MG/DL 2.5-4.9 N [id number] 08:28:00 Test Item Value Reference Range Interpretation Comments MAGNESIUM (test code = MAG) 1.94 mg/dL 1.80-2.40 N [id number] 07:16:00 Test Item Value Reference Range Interpretation Comments GLUBED (test code = 170 MG/DL 70-110 H Performe d by certified GLUBED) 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 [facility] [id number] 07:16:00 Test Item Value Reference Range Interpretation Comments GLUBED (test code = 137 MG/DL 70-110 H Performe d by certified GLUBED) 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 [facility] [id number] 17:01:00 Test Item Value Reference Range Interpretation Comments GLUBED (test code = 88 MG/DL 70-110 N Performe d by certified GLUBED) 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 [facility] [id number]-[id number] 16:56:00 Test Item Value Reference Range Interpretation Comments ACT-ISTAT (test code 186 SEC 74-137 H Perform ed by certified = ACTI) 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 [facility] [id number] 15:03:00 Test Item Value Reference Range Interpretation Comments ACT-ISTAT (test code 235 SEC 74-137 H Perform ed by certified = ACTI) 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 [facility] [id number] 11:33:00 Test Item Value Reference Range Interpretation Comments GLUBED (test code = 97 MG/DL 70-110 N Performe d by certified GLUBED) 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 [facility] [id number] 06:54:00 Test Item Value Reference Range Interpretation Comments GLUBED (test code = 136 MG/DL 70-110 H Performe d by certified GLUBED) 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 [facility] BASIC METABOLIC [id number] 06:00:00 Test Item Value Reference Range Interpretation [...] COMMENTS: To be done morning of Heart [id number] 06:00:00 Test Item Value Reference Range Interpretation Comments PHOSPHOROUS (test code = PHOS) 4.1 MG/DL 2.5-4.9 N COMMENTS: To be done morning of Heart [id number] 06:00:00 Test Item Value Reference Range Interpretation Comments MAGNESIUM (test code = MAG) 1.74 mg/dL 1.80-2.40 L COMMENTS: To be done morning of Heart CathTHROMBOPLASTIN TIME [id number] 05:55:00 Test Item Value Reference Range Interpretation Comments THROMBOPLASTIN TIME 37.9 Seconds 25.0-39.5 N Therape utic Range: PARTIAL (test code = 50.4 - 88.3 Seconds PTT) Effective 09/04/2018 CBC W/AUTO [id number] 05:44:00 Test Item Value Reference Range Interpretation [...] COMMENTS: To be done morning of Heart [id number] 05:44:00 Test Item Value Reference Range Interpretation Comments GLUBED (test code = 92 MG/DL 70-110 N Performe d by certified GLUBED) 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 [facility] HGBA1C%[id number] 17:22:00 Test Item Value Reference Range Interpretation Comments HGBA1C% (test code = HGBA1C%) 6.6 %A1C 4.8-6.0 H [id number] 17:17:00 Test Item Value Reference Range Interpretation Comments GLUBED (test code = 118 MG/DL 70-110 H Performe d by certified GLUBED) 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 [facility] TSH REFLEX TO [id number] 15:37:00 Test Item Value Reference Range Interpretation Comments TSH REFLEX TO FT4 (test code = 3.19 IU/mL 0.42-5.47 N TSHREFLEX) [id number] 15:37:00 Test Item Value Reference Range Interpretation [...] y by method. COVID 19 Asymptomatic IH [id number] 11:35:00 Test Item Value Reference Range Interpretation [...] y tests. COMMENTS: If not done this [id number] 11:31:00 Test Item Value Reference Range Interpretation [...] titative results may babak y by method. [id number] 11:28:00 Test Item Value Reference Range Interpretation Comments D-DIMER (test 1089 ng/mlFEU See_Comment HH Critical resu lt called to code = ALYX WELLS, Rima DDIMER) G.LAB.JJ1 at 04 1808/10/20Nurse r ead back [...] to interpret this result as normal/abnormal . 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80-2.40 N [id number] 08:11:00 Test Item Value Reference Range Interpretation [...] may babak y by method. BASIC METABOLIC [id number] 08:09:00 Test Item Value Reference Range Interpretation [...] code = CA) mg/dL 8.0-10.5 HEPATIC FUNCTION [id number] 08:09:00 Test Item Value Reference Range Interpretation Comments TOTAL PROTEIN (test code = PROT) g/dL 6.4-8.2 ALBUMIN (test code = ALB) g/dL 3.4-5.0 BILIRUBIN TOTAL (test code = BILT) mg/dL 0.0-1.0 BILIRUBIN DIRECT (test code = BILD) MG/DL 0.0-0.30 SGOT/AST (test code = AST) IUnit/L 15-37 SGPT/ALT (test code = ALT) IUnit/L 30-65 ALKALINE PHOSPHATASE TOTAL (test IUnit/L 20-125 code = ALKP) [id number] 08:09:00 Test Item Value Reference Range Interpretation Comments MAGNESIUM (test code = MAG) mg/dL 1.80-2.40 [id number] 08:09:00 Test Item Value Reference Range Interpretation [...] results may babak y by method. PROTHROMBIN [id number] 08:06:00 Test Item Value Reference Range Interpretation [...] (to prevent recurrent infar ct). THROMBOPLASTIN TIME [id number] 08:06:00 Test Item Value Reference Range Interpretation Comments THROMBOPLASTIN TIME 44.5 Seconds 25.0-39.5 H Therape utic Range: PARTIAL (test code = 50.4 - 88.3 Seconds PTT) Effective 09/04/2018 CBC W/AUTO [id number] 07:58:00 Test Item Value Reference Range Interpretation [...] NO = MDIFF) - XR CHEST 1 [id number] 07:57:00 [facility] 1960 Sex: M FAX: Todd Jacobo MD [phone] Carmen: St: REG FAX: Martínez Dash NP [phone] Name: FAITH VANCE [facility] : 1960 Age/S: 60/M [address] [place] [address] Bl Unit #: [id number] Loc: [place] [address] Phys: Martínez Dash NP Acct: [id number] Dis Date: Status: REG ER PHONE #: [phone] Exam Date: 08/10/2020 [facility] FAX #: [phone] Reason: Chest Pain EXAMS: CPT CODE: [id number] XR CHEST 1 V 41607 Chest single view 08/10/2020 HISTORY: Chest pain. Comparison is made to 05/21/2018 FINDINGS: Pacemaker and midline sternotomy wires are stable. The lungs are hypoinflated. No consolidation or pleural effusion is present. No vascular congestion or interstitial edema is present. Heart size is mildly enlarged. Aorta is unchanged. IMPRESSION: Hypoinflated lungs. No acute cardiopulmonary process. SL: [id number] at 0757 Reported and signed by: Khai Kruse M.D. CC: Todd Jacobo MD; Martínez Dash NP Technologist: RT Ann(R) Trnscrd Date/Time/By: 08/10/2020 (0757) : By: [email or web address] Orig Print D/T: S: 08/10/2020 (0800) PAGE 1 Signed Report COMPREHENSIVE METABOLIC [id number] 18:02:00 Test Item Value Reference Range Interpretation [...] 50-136 H TOTAL (test code = ALKP) [id number] 18:02:00 Test Item Value Reference Range Interpretation Comments AMYLASE (test code = SERGIO) 82 Unit/L 25-115 N [id number] 18:02:00 Test Item Value Reference Range Interpretation Comments LIPASE (test code = LIP) 185 Unit/L 114-286 N COMPREHENSIVE METABOLIC [id number] 17:56:00 Test Item Value Reference Range Interpretation [...] TOTAL Unit/L 50-136 (test code = ALKP) [id number] 17:56:00 Test Item Value Reference Range Interpretation Comments AMYLASE (test code = SERGIO) Unit/L 25-115 [id number] 17:56:00 Test Item Value Reference Range Interpretation Comments LIPASE (test code = LIP) 185 Unit/L 114-286 N CBC W/AUTO [id number] 17:46:00 Test Item Value Reference Range Interpretation [...] CRITERIA MDIFF) - CT ABD PELVIS W/O [id number] 17:46:00 [facility] 1960 Age/S: 58 / M [address] Unit #: [id number] Loc: [place] [address] Phys: Nila Chester MD Acct: [id number] Dis Date: Status: REG ER PHONE #: [phone] Exam Date: 01/03/2019 1730 FAX #: Reason: llq EXAMS: CPT: [id number] CT ABD PELVIS W/O CONT 28195 Location of dictation: B2 CT abdomen and [...] Fatty liver without mass. Gallbladder removed. Spleen andpancreas appear normal Adrenals: Normal Kidneys: No renal [...] PAGE 1 Signed Report (CONTINUED) Name: [place] [facility] : 1960 Age/S: 58 / M [address] Unit #: [id number] Loc: [place] [address] Phys: Nila Chester MD Acct: [id number] Dis Date: Status: REG ER PHONE #: [phone] Exam Date: 01/03/2019 1730 FAX #: Reason: llq EXAMS: CPT: [id number] CT ABD PELVIS W/O CONT 96189 <Continued> ElectronicallySigned by Maria Eugenia Willett on 01/03/2019 at 1746 Reported and signed by: Renuka Willett M.D. CC: Nila Chester MD Technologist:Tavon Jurado, RT(R)(CT)(MRI) CTDI: DLP: Trnscb Date/Time: 01/03/2019 (3287) tSHAYNAPXC Orig Print D/T: S: 01/03/2019 (0129) PAGE 2 Signed ReportBedside [id number] 11:47:00 Test Item Value Reference Range Interpretation Comments Bedside Glucose (test code = 99008-5) 155 70-120 H Meter ID: [id number]. Luke's Baptist HospitalCarbon Dioxide Level 2017-10-27 08:31:00 Test Item Value Reference Range Interpretation Comments Carbon Dioxide Level (test code = 8-9) [facility] HospitalAnion [id number] 08:31:00 Test Item Value Reference Range Interpretation Comments Anion Gap (test code = 60339-1) 12.0 8-16 [facility] HospitalBlood Urea [id number] 08:31:00 Test Item Value Reference Range Interpretation Comments Blood Urea Nitrogen (test code = 12-14 3094-0) [facility] HospitalCreatinine2018-06-08 08:31:00 Test Item Value Reference Range Interpretation Comments Creatinine (test code = 2160-0) 0.72 0.72-1.25 [facility] HospitalBUN/Creatinine Ksxew2520-07-85 08:31:00 Test Item Value Reference Range Interpretation Comments BUN/Creatinine Ratio (test code = 11-13 3097-3) [facility] HospitalEstimat Glomerular Filtration Nehh0239-11-01 08:31:00 Test Item Value Reference Range Interpretation Comments Estimat Glomerular Filtration Rate 60- >60 (test code = 12991-5) Ranges were taken from the National Kidney Disease Education Program and the National Kidney Foundation literature.Reference ranges:60 or greater: Bizykx74- 59 (for 3 consecutive months): Chronic kidneydisease 15 or less: Kidney failure [facility] HospitalGlucose Bebey9714-00-88 08:31:00 Test Item Value Reference Range Interpretation Comments Glucose Level (test code = LBB9341) 195 74-[address] [facility] HospitalCalcium Cmcvw0749-47-56 08:31:00 Test Item Value Reference Range Interpretation Comments Calcium Level (test code = 08716-1) 9.0 8.4-10.2 [facility] Iwxec0924-57-53 08:31:00 Test Item Value Reference Range Interpretation Comments Sodium Level (test code = 2951-2) 139 136-145 [facility] HospitalPotassium [id number] 08:31:00 Test Item Value Reference Range Interpretation Comments Potassium Level (test code = 2823-3) 4.0 3.5-5.1 [facility] HospitalChloride Nddpm2924-47-64 08:31:00 Test Item Value Reference Range Interpretation Comments Chloride Level (test code = 2075-0) 106 98-107 [facility] HospitalWhite Blood [id number] 08:12:00 Test Item Value Reference Range Interpretation Comments White Blood Count (test code = 6690-2) 6.06 4.8-10.8 [facility] HospitalRed Blood [id number] 08:12:00 Test Item Value Reference Range Interpretation Comments Red Blood Count (test code = 789-8) 4.22 4.3-5.[address] [facility] HospitalHemoglobin2018-06-08 08:12:00 Test Item Value Reference Range Interpretation Comments Hemoglobin (test code = 06964-5) 12.5 14.0-18.[address] [facility] HospitalHematocrit2018-06-08 08:12:00 Test Item Value Reference Range Interpretation Comments Hematocrit (test code = 4544-3) 36.2 38.2-49.[address] [facility] HospitalMean Corpuscular Eukgkj9539-75-85 08:12:00 Test Item Value Reference Range Interpretation Comments Mean Corpuscular Volume (test code = 85.8 81-99 787-2) [facility] HospitalMean Corpuscular Pismmhuoha1054-64-56 08:12:00 Test Item Value Reference Range Interpretation Comments Mean Corpuscular Hemoglobin (test code 29.6 28-32 = 785-6) [facility] HospitalMean Corpuscular Hemoglobin Udwqpoj5377-97-14 08:12:00 Test Item Value Reference Range Interpretation Comments Mean Corpuscular Hemoglobin Concent 34.5 31-35 (test code = 786-4) [facility] HospitalRed Cell Distribution Sdvax9749-02-33 08:12:00 Test Item Value Reference Range Interpretation Comments Red Cell Distribution Width (test code 14.2 11.7-14.4 = 69271-5) [facility] HospitalPlatelet Jcegg8148-51-11 08:12:00 Test Item Value Reference Range Interpretation Comments Platelet Count (test code = 777-3) 263 140-360 [facility] HospitalNeutrophils (%) (Auto)2017-10-27 08:12:00 Test Item Value Reference Range Interpretation Comments Neutrophils (%) (Auto) (test code = 51.2 38.7-80.0 19514-7) [facility] HospitalLymphocytes (%) (Auto)2017-10-27 08:12:00 Test Item Value Reference Range Interpretation Comments Lymphocytes (%) (Auto) (test code = 33.7 18.0-39.1 736-9) [facility] HospitalMonocytes (%) (Auto)2017-10-27 08:12:00 Test Item Value Reference Range Interpretation Comments Monocytes (%) (Auto) (test code = 9.1 4.4-11.3 5905-5) [facility] HospitalEosinophils (%) (Auto)2017-10-27 08:12:00 Test Item Value Reference Range Interpretation Comments Eosinophils (%) (Auto) (test code = 4.8 0.0-6.0 713-8) [facility] HospitalBasophils (%) (Auto)2017-10-27 08:12:00 Test Item Value Reference Range Interpretation Comments Basophils (%) (Auto) (test code = 0.7 0.0-1.0 706-2) [facility] HospitalIM GRANULOCYTES %2017-10-27 08:12:00 Test Item Value Reference Range Interpretation Comments IM GRANULOCYTES % (test code = IM 0.5 0.0-1.0 GRANULOCYTES %) [facility] HospitalNeutrophils # (Auto)2017-10-27 08:12:00 Test Item Value Reference Range Interpretation Comments Neutrophils # (Auto) (test code = 3.1 2.1-6.9 751-8) [facility] HospitalLymphocytes # (Auto)2017-10-27 08:12:00 Test Item Value Reference Range Interpretation Comments Lymphocytes # (Auto) (test code = 2.0 1.0-3.2 16094-5) [facility] HospitalMonocytes # (Auto)2017-10-27 08:12:00 Test Item Value Reference Range Interpretation Comments Monocytes # (Auto) (test code = 742-7) 0.6 0.2-0.8 [facility] HospitalEosinophils # (Auto)2017-10-27 08:12:00 Test Item Value Reference Range Interpretation Comments Eosinophils # (Auto) (test code = 0.3 0.0-0.4 711-2) [facility]ophils # (Auto)2017-10-27 08:12:00 Test Item Value Reference Range Interpretation Comments Basophils # (Auto) (test code = 704-7) 0.0 0.0-0.1 [facility] HospitalAbsolute Immature Granulocyte (doou5267-26-93 08:12:00 Test Item Value Reference Range Interpretation Comments Absolute Immature Granulocyte (auto 0.03 0-0.1 (test code = Absolute Immature Granulocyte (auto) [facility] HospitalCreatine Kinase UF7527-74-77 15:14:00 Test Item Value Reference Range Interpretation Comments Creatine Kinase MB (test code = 3.90 0-5.0 61410-1) [facility] HospitalTroponin A7092-48-51 15:14:00 Test Item Value Reference Range Interpretation Comments Troponin I (test code = IPX3733) 0.054 0-0.300 [facility] HospitalCreatine Vuhocp1584-27-23 15:07:00 Test Item Value Reference Range Interpretation Comments Creatine Kinase (test code = 2157-6) 297 30-[address] [facility] HospitalHemoglobin A1c Cyuserp3028-06-78 08:04:00 Test Item Value Reference Range Interpretation Comments Hemoglobin A1c Percent (test code = 12.6 4.0-7.0 H Hemoglobin A1c Percent) [facility] HospitalTriglycerides Bcqsv0375-22-35 06:57:00 Test Item Value Reference Range Interpretation Comments Triglycerides Level (test code = 200 0-149 H 2571-8) [facility] HospitalCholesterol Onwbw2425-45-61 06:57:00 Test Item Value Reference Range Interpretation Comments Cholesterol Level (test code = 2093-3) 239 0-199 H Less than 200 mg/dL Low Qaar420 - 239 mg/dL Borderline Youm485 mg/dl and greater High RiskSt. Luke's Baptist HospitalLDL Fdiqwhckfzp0845-58-29 06:57:00 Test Item Value Reference Range Interpretation Comments LDL Cholesterol (test code = 2089-1) 164 60-[address] [facility] HospitalHDL Txncnlolwmu6916-53-64 06:57:00 Test Item Value Reference Range Interpretation Comments HDL Cholesterol (test code = 2085-9) 35 40-[address] [facility] HospitalCholesterol/HDL Ztexy5731-74-86 06:57:00 Test Item Value Reference Range Interpretation Comments Cholesterol/HDL Ratio (test code = 6.8 3.9-4.7 H 9830-1) [facility] HospitalUrine Opiates Akzuor0152-96-51 16:18:00 Test Item Value Reference Range Interpretation Comments Urine Opiates Screen (test code = NEGATIVE NEGATIVE 74028-6) [facility] HospitalUrine Barbiturates Zwfrfu8259-50-15 16:18:00 Test Item Value Reference Range Interpretation Comments Urine Barbiturates Screen (test code NEGATIVE NEGATIVE = 528749618) [facility] HospitalUrine Phencyclidine Catalj8906-89-64 16:18:00 Test Item Value Reference Range Interpretation Comments Urine Phencyclidine Screen (test NEGATIVE NEGATIVE code = 24173-3) [facility] HospitalUrine Amphetamines Xkssqf9542-18-19 16:18:00 Test Item Value Reference Range Interpretation Comments Urine Amphetamines Screen (test code NEGATIVE NEGATIVE = 50979-3) [facility] HospitalUrine Methamphetamines Jicaju3194-42-36 16:18:00 Test Item Value Reference Range Interpretation Comments Urine Methamphetamines Screen (test NEGATIVE NEGATIVE code = Urine Methamphetamines Screen) [facility] HospitalUrine Benzodiazepines Mamocp0013-13-54 16:18:00 Test Item Value Reference Range Interpretation Comments Urine Benzodiazepines Screen (test NEGATIVE NEGATIVE code = 06390-0) [facility] HospitalUrine Cocaine Vwwcba0128-15-04 16:18:00 Test Item Value Reference Range Interpretation Comments Urine Cocaine Screen (test code = NEGATIVE NEGATIVE 3398-5) [facility] HospitalUrine Cannabinoids Mouwms8302-98-22 16:18:00 Test Item Value Reference Range Interpretation Comments Urine Cannabinoids Screen (test code NEGATIVE NEGATIVE = 83435-6) THESE RESULTS ARE FOR MEDICAL TREATMENT ONLYTHIS REPORT CONTAINS UNCONFIRMED SCREENING RESULTS*POSITIVE RESULTS WILL BE CONFIRMED BY REFERENCE LAB UPON REQUEST CUT-OFFDRUG CLASS CONCENTRATION ng/mLAmphetamines 1000Methamphetamines 1000Cocaine 300Opiate 300Phencyclidine 25Cannabinoid 50Barbiturates 300Benzodiazepine 300Methadone 300[facility] Methadone Czwocb1015-85-79 16:18:00 Test Item Value Reference Range Interpretation Comments Urine Methadone Screen (test code = NEGATIVE NEGATIVE 04443-5) THESE RESULTS ARE FOR MEDICAL TREATMENT ONLYTHIS REPORT CONTAINS UNCONFIRMED SCREENING RESULTS*POSITIVE RESULTS WILL BE CONFIRMED BY REFERENCE LAB UPON REQUEST CUT-OFFDRUG CLASS CONCENTRATION ng/mLAmphetamines 1000Methamphetamines 1000Cocaine Metabolite 300Opiate 300Phencyclidine 03Thryubkygrk40Wyplmvrjaikk 300Benzodiazepine 300Methadone 300[facility] AngelesProthrombin Nqvx9034-91-45 14:13:00 Test Item Value Reference Range Interpretation Comments Prothrombin Time (test code = 5902-2) 13.6 11.9-14.5 [facility] HospitalProthromb Time International Aujfx2474-81-84 14:13:00 Test Item Value Reference Range Interpretation Comments Prothromb Time International Ratio 1.13 (test code = 6301-6) Oral Anticoagulant Therapy INR Values:1. Low Intensity Therapy 1.5 - 2.02. Moderate Intensity Therapy 2.0 - 3.03. High Intensity Therapy(1) 2.5 - 3.54. High Intensity Therapy(2) 3.0 - 4.05. Panic ValueINR > 5.0[facility] HospitalActivated Partial Thromboplast Fouj5403-38-48 14:13:00 Test Item Value Reference Range Interpretation Comments Activated Partial Thromboplast Time 27.6 23.8-35.5 (test code = 42284-6) [facility] HospitalTotal Wxzbxdoid0198-74-95 14:10:00 Test Item Value Reference Range Interpretation Comments Total Bilirubin (test code = 1975-2) 0.6 0.2-1.2 [facility] HospitalAspartate Amino Transf (AST/SGOT)2017-10-23 14:10:00 Test Item Value Reference Range Interpretation Comments Aspartate Amino Transf (AST/SGOT) (test 36 5-34 H code = Aspartate Amino Transf (AST/SGOT)) [facility] HospitalAlanine Aminotransferase (ALT/SGPT)2017-10-23 14:10:00 Test Item Value Reference Range Interpretation Comments Alanine Aminotransferase (ALT/SGPT) 34 0-55 (test code = 1742-6) [facility] HospitalTotal Mrqzumw3661-16-93 14:10:00 Test Item Value Reference Range Interpretation Comments Total Protein (test code = 2885-2) 7.3 6.5-8.1 [facility] HospitalAlbumin2018-06-04 14:10:00 Test Item Value Reference Range Interpretation Comments Albumin (test code = 1751-7) 4.0 3.5-5.0 [facility] HospitalGlobulin2018-06-04 14:10:00 Test Item Value Reference Range Interpretation Comments Globulin (test code = 30678-3) 3.3 2.3-3.5 [facility] HospitalAlbumin/Globulin Kwoyo0671-15-40 14:10:00 Test Item Value Reference Range Interpretation Comments Albumin/Globulin Ratio (test code = 1.2 0.8-2.0 1759-0) [facility] HospitalAlkaline Hmfwbhejnii6121-58-47 14:10:00 Test Item Value Reference Range Interpretation Comments Alkaline Phosphatase (test code = 109 40-150 6768-6) [facility] HospitalB-Type Natriuretic Jiqadap1513-19-98 14:10:00 Test Item Value Reference Range Interpretation Comments B-Type Natriuretic Peptide (test code = 92.8 0-100 06555-3) [facility] HospitalAmylase Trwda7486-71-27 14:10:00 Test Item Value Reference Range Interpretation Comments Amylase Level (test code = 1798-8) 126 25-[address] [facility] HospitalLipase2018-06-04 14:10:00 Test Item Value Reference Range Interpretation Comments Lipase (test code = 3040-3) 98 8-[address] [facility] HospitalD-Dimer Quantitative (PE/DVT)2017-10-23 14:02:00 Test Item Value Reference Range Interpretation Comments D-Dimer Quantitative (PE/DVT) (test 0.49 0.00-0.45 H code = 11874-8) [facility] HospitalDirect Ixpswwxeh3868-76-03 13:47:00 Test Item Value Reference Range Interpretation Comments Direct Bilirubin (test code = 87097-0) 0.2 0.0-5.0 [facility] HospitalMagnesium Ksueb2944-78-98 06:52:00 Test Item Value Reference Range Interpretation Comments Magnesium Level (test code = 34326-5) 1.5 1.3-2.1 [facility] HospitalUrine FHQ3765-25-62 05:09:00 Test Item Value Reference Range Interpretation Comments Urine WBC (test code = 5821-4) NONE 0-5 [facility] HospitalUrine XXP4649-11-25 05:09:00 Test Item Value Reference Range Interpretation Comments Urine RBC (test code = 11057-3) NONE 0-5 [facility] HospitalUrine Bnegcwrw4188-83-76 05:09:00 Test Item Value Reference Range Interpretation Comments Urine Bacteria (test code = 58949-5) NONE NONE [facility] HospitalUrine Epithelial Knlvp3114-77-41 05:09:00 Test Item Value Reference Range Interpretation Comments Urine Epithelial Cells (test code = NONE NONE 60678-8) [facility] HospitalUrine Caayr6812-94-26 04:46:00 Test Item Value Reference Range Interpretation Comments Urine Color (test code = 5778-6) YELLOW YELLOW [facility] HospitalUrine Ttqlmdy2553-64-16 04:46:00 Test Item Value Reference Range Interpretation Comments Urine Clarity (test code = 44641-4) CLEAR CLEAR [facility] HospitalUrine Specific Hgpvpes8964-20-18 04:46:00 Test Item Value Reference Range Interpretation Comments Urine Specific [place] (test code = 1.010 1.010-1.025 5811-5) [facility] HospitalUrine lX4680-23-29 04:46:00 Test Item Value Reference Range Interpretation Comments Urine pH (test code = 26509-9) 8 5-[address] [facility] HospitalUrine Leukocyte Ukekmwno1624-45-07 04:46:00 Test Item Value Reference Range Interpretation Comments Urine Leukocyte Esterase (test code NEGATIVE NEGATIVE = 5799-2) [facility] HospitalUrine Fzzddgp6631-88-19 04:46:00 Test Item Value Reference Range Interpretation Comments Urine Nitrite (test code = 11619-1) NEGATIVE NEGATIVE [facility] HospitalUrine Trtzlde5032-09-92 04:46:00 Test Item Value Reference Range Interpretation Comments Urine Protein (test code = 5804-0) NEGATIVE NEGATIVE [facility] HospitalUrine Glucose (UA)2017-03-05 04:46:00 Test Item Value Reference Range Interpretation Comments Urine Glucose (UA) (test code = NEGATIVE NEGATIVE 2349-9) [facility] HospitalUrine Wnxgvsv2720-85-88 04:46:00 Test Item Value Reference Range Interpretation Comments Urine Ketones (test code = 39103-2) NEGATIVE NEGATIVE [facility] HospitalUrine Oukknpksijwx5279-94-70 04:46:00 Test Item Value Reference Range Interpretation Comments Urine Urobilinogen (test code = 0.2 0.2-1 59420-1) [facility] HospitalUrine Exmrvcgyf1614-93-25 04:46:00 Test Item Value Reference Range Interpretation Comments Urine Bilirubin (test code = 1978-6) NEGATIVE NEGATIVE [facility] HospitalUrine Fgpaz9288-78-42 04:46:00 Test Item Value Reference Range Interpretation Comments Urine Blood (test code = 63871-7) 2+ NEGATIVE H [facility] HospitalCTA BRAIN [place] [address] PatientName: FAITH VANCE MR #: [id number] : 1960 Age/Sex: 57[id number] Req #: [id number] [facility] Physician: ALEXIS COX MD Ordered by: ALEXIS COX MD Report #: [id number] Location: [facility] Room/Bed: [place] [address] Procedure: [id number] CT/CTA BRAIN Exam Date: 10/24/17 Exam Time: [...] PM Dictated By: ANA MARIA ARTEAGA MD 32 Transcribed By: ANDREE on 10/24/171632 COPY TO: ALEXIS COX MDCT BRAIN WO [place] [address] PatientName: FAITH VANCE MR #: [id number] : 1960 Age/Sex: 57/M Req #: [id number] Adm Physician: Ordered by: KHAI WAHL MD Report #: [id number] Location: Room/Bed: __ Procedure: [id number] CT/CT BRAIN WO Exam Date: 10/23/17 Exam Time: 1545 REPORT STATUS: Signed Exam: Head CT without contrast History: Left- sided weakness Comparison studies: Head CT 04/04/2017. Technique:Axial images were obtained from the skull base [...] COPY TO: KHAI WAHL V MDCTA CHEST [place] [address] PatientName: FAITH VANCE MR #: [id number] : 1960 Age/Sex: 57/M Req #: [id number] Adm Physician: Ordered by: KHAI WAHL MD Report #: [id number] Location: ER Room/Bed: __ Procedure: [id number] CT/CTA CHEST Exam Date: 10/23/17 Exam Time: [...] reviewed and is below limits set by [facility]). FINDINGS: Lines and Tubes: Pacemaker with leads terminating right atrium and right ventricular apex. Lower Neck: The visualized thyroid gland is grossly unremarkable with no suspicious or significant nodule identified. Heart and Great Vessels: The pulmonary artery measure 23 mm. No pericardial effusionpresent. Moderate coronary artery vascular calcifications are present. No central pulmonary embolusis identified. Aortic Annulus: 26 mm. Sinus of [...] opacities medial right lung base adjacent to promin ent osteophytes consistent with benign friction phenomenon. Upper abdomen: Cholecystectomy clips andhepatic steatosis partially visualized. Bones and Soft Tissues: Sternotomy wires and moderate degenerative changes spine. IMPRESSION: 1. No aortic dissection. 2. Minimal opacity right lung base, nonspecific. Pneumonitis possible. 3. Hepatic steatosis. Signed by: Dr. Oren Irizarry MD on 10/23/2017 4:21 PM Dictated By: OREN IRIZARRY MD 162 Transcribed By: ANDREE on 10/23/17 162 COPY TO: KHAI WAHL V [facility] SINGLE (PORTABLE) [place] [address] PatientName: FAITH VANCE MR #: [id number] : 1960 Age/Sex: 57/M Req #: [id number] Adm Physician: Ordered by: KHAI WAHL MD Report #: [id number] Location: ER Room/Bed: __ Procedure: [id number] DX/CHEST SINGLE (PORTABLE) Exam Date: 10/23/17 Exam [...] TO: KHAI WAHL V MDCT BRAIN WO [place] [address] PatientName: FAITH VANCE MR #: [id number] : 1960 Age/Sex: 56/M Req #: [id number] Adm Physician: Ordered by: JACQUELYN MONTES DE OCA MD Report #: [id number] Location: ER Room/Bed: Procedure: [id number] CT/CT BRAIN WO Exam Date: Exam Time: [...] No acute hemorrhage, mass or acute major vascul ar territorial infarct. Arteries: No density suggestive of [...] MONTES DE OCA MDCT CERVICAL SPINE WO [place] [address] PatientName: FAITH VANCE MR #: [id number] : 1960 Age/Sex: 56/M Req #: [id number] Adm Physician: Ordered by: JACQUELYN MONTES DE OCA MD Report #: [id number] Location: ER Room/Bed: Procedure: [id number] CT/CT CERVICAL SPINE WO Exam Date: Exam Time: REPORT STATUS: Signed History: Status post fall. Comparison studies: Report of CT cervical spine from 11/16/2008. Technique: Axial images wereobtained through the cervical region.. Coronal and sagittal images reconstructed from the axial data.. Intravenous contrast: None Findings: Fractures: None. Soft tissue injuries: None. Atlantoaxial articulation: Intact. Alignment: Normal lordosis. No scoliosis. Cervicomedullary junction: No abnormalities. The foramen magnum is patent. Soft tissues: No abnormalities. Vertebrae: No fractures, infectionor neoplasm. Degenerative changes: C3-C4: Posterior discussed effect complex without canal stenosis.C4-C5: Posterior disc osteophyte complex results in mild [...] AM Dictated By: BRETT JEAN MD 6 COPY TO: JACQUELYN [facility]ES [facility] [place] [address] PatientName: FAITH VANCE MR #: [id number] : 1960 Age/Sex: 56/M Req #: [id number] Adm Physician: Ordered by: JACQUELYN MONTES DE OCA MD Report #: [id number] Location: ER Room/Bed: Procedure: [id number] DX/CHEST SINGLE (PORTABLE) Exam Date: 04/04/17 Exam Time: 0123 REPORT STATUS: SignedCHEST SINGLE (PORTABLE), 04/04/2017 12:35 AM Technique: CHEST SINGLE (PORTABLE) Comparison: 03/05/2017, 01/04/2017 Clinical history: Fall, slipped in shower, pain Findings: See Impression Impression: 1.Stable mildly enlarged cardiomediastinal silhouette status post sternotomy [...] OCA MDHIP RIGHT 2-3 VW (+/- PELVIS) [place] [address] PatientName: FAITH VANCE MR #: [id number] : 1960 Age/Sex: 56/M Req #: [id number] Adm Physician: Ordered by: JACQUELYN MONTES DE OCA MD Report #: [id number] Location: ER Room/Bed: Procedure: [id number] DX/HIP RIGHT 2-3 VW (+/- PELVIS) Exam Date: Exam Time: REPORT STATUS: Signed HIP RIGHT2-3 VW (+/- PELVIS) Comparison: None Clinical history: [...] MDSP LUMBAR, COMPLETE MIN 4VW [place] [id number] [place] [address] PatientName: FAITH VANCE MR #: [id number] : 1960 Age/Sex: 56/M Req #: [id number] Adm Physician: Ordered by: JACQUELYN MONTES DE OCA MD Report #: [id number] Location: ER Room/Bed: Procedure: [id number] DX/SP LUMBAR, COMPLETE MIN 4VW Exam Date: 04/04/17 Exam Time: 0108 REPORT STATUS: Signed SP LUMBAR, COMPLETE MIN 4VW Comparison: CT 08/10/2016 Clinical history: Status post fall with lowerback pain Findings: Postoperative changes from posterior fusion from left L4 vertebral body to L5-H9lxzpwo and posterior decompression. No evidence of hardware loosening or fracture. Alignment is grossly intact. Unchanged minimal anterior wedging at T12, L1. Scattered degenerative changes, with moderate to severe L2- L4 facet arthrosis, degenerative disc disease and posterior disc osteophyte at L2-3.Impression: No acute bony abnormality Signed by: Dr Marco A Talbot MD on 04/04/2017 2:28 AM DictatedBy: MARCO A TALBOT MD 7 Transcribed By:ANDREE on 04/04/17227 COPY TO: JACQUELYN MONTES DE OCA MDUS ABDOMEN COMPLETE [place] [address] PatientName: FAITH VANCE MR #: [id number] : 1960 Age/Sex: 56/M Req #: [id number] [facility] Physician: NICHELLE PALACIOS MD Ordered by: SCOTT AMIN MD Report #: [id number] Location: [facility] Room/Bed: [place] [address] Procedure: [id number] US/US ABDOMEN COMPLETE Exam Date: 03/08/17 Exam [...] By: ANIBAL on 03/08/171039 COP[facility] TO: [facility] [place] [address] PatientName: FAITH VANCE MR #: [id number] : 1960 Age/Sex: 56/M Req #: [id number] Adm Physician: Ordered by: JACQUELYN MONTES DE OCA MD Report #: [id number] Location: ER Room/Bed: Procedure: [id number] DX/CHEST SINGLE (PORTABLE) Exam Date: 03/05/17 Exam [...]
[2022-01-08] MEDS ORDERED: MORPHINE 4 MG/ML SYR ONE ×2 (07:33→08:09)
[2022-01-08] MEDS ORDERED: ONDANSETRON 4 MG/2 ML VIAL ONE (07:33)
[2022-01-08 07:38] LABS: Absolute Lymphocytes (CBC) 1.3 K/uL (0.7-4.9); Hematocrit 35.9 % (39.6-49.0); Lymphocytes % 16.1 % (15.3-44.8); MCV 91.6 fL (80-100); MPV 7.9 fL (7.6-11.3); Protime INR 1.26; RBC Red Blood Cell Count 3.92 M/uL (4.33-5.43)
[2022-01-08 07:55] LABS: Albumin 2.9 g/dL (3.4-5.0); Bilirubin Direct 0.2 mg/dL (0-0.2); Bilirubin Total 0.6 mg/dL (0.2-1.0); Magnesium 1.9 mg/dL (1.8-2.4); Potassium 4.2 mmol/L (3.5-5.1); Protein, Total 7.2 g/dL (6.4-8.2); Troponin High Sensitivity 23.2 pg/mL (<58.9)
--- NOTE | 2022-01-08 07:58 | RAD REPORT ---
EXAM DESCRIPTION: RAD - Chest Single View - 01/08/2022 7:48 am CLINICAL HISTORY: CHEST PAINradiating to the left upper extremity COMPARISON: Portable 12/26/2021 examination, CT angio chest 12/26/2021 TECHNIQUE: AP portable chest image was obtained 01/08/2022 7:48 am . FINDINGS: No new mass or consolidation of the lung parenchyma seen. Retrocardiac left base is limite d by portable technique and shallow inspiration. No gross changes seen. Overall lung parenchymal anuja stacy is similar to comparison. Left subclavian pacemaker in place. Sternotomy wires are noted. Heart size is upper normal. Pulmonary vasculature within normal limits. Trachea is midline. No pneumothorax is present. Pleural effusion seen on the CT chest a less evident on the current exam ination but may not have resolved. No acute bony abnormality seen. No acute aortic findings suspected . IMPRESSION: No new mass or consolidation. The mild failure or volume overload findings seen December 26 are less evident on the current examinatio n. Pleural effusions seen on the December 27 study are less evident but may not have resolved.
--- NOTE | 2022-01-08 11:44 | EDPHYS ---
Physician Documentation [facility] Name: Ernie Rooney Age: 61 yrs Sex: Male : 1960 Arrival Date: 01/08/2022 Time: 07:02 Bed 4 Private MD: ED Physician Goldie Gonzales HPI: 01/08 07:16 This 61 yrs old Male presents to ER via EMS with complaints of Chest Pain. sd2 07:16 61 yo M with hx of triple vessel CABG non-compliant with medications for the past 2 sd2 weeks presents via EMS with CC of chest pain. Pt reports L sided CP radiating to L arm with tingling in L arm that started 45 mins to 1 hour [employer]INTE[employer] with associated SOB and nausea and vomiting. Received 324 mg ASA with EMS. Reports hypotension when he receives NTG and that he cannot tolerate it. Reports pain similar to previous MN. 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 - Social history:: Smoking status: Patient denies any tobacco usage or history of. ROS: 07:16 Constitutional: Negative for fever, chills, and weight loss, Eyes: Negative for injury, sd2 pain, redness, and discharge, MS/Extremity: Negative for injury and deformity, Skin: Negative for injury, rash, and discoloration. 07:16 Cardiovascular: Positive for chest pain, Negative for edema, palpitations. 07:16 Respiratory: Positive for shortness of breath, Negative for cough, dyspnea on exertion, wheezing. 07:16 Abdomen/GI: Positive for nausea, Negative for abdominal pain, vomiting, diarrhea. 07:16 Neuro: Positive for tingling, Negative for altered mental status, headache, numbness. Exam: 07:16 Constitutional: This is a well developed, well nourished patient who is awake, alert, sd2 and in no acute distress. Head/Face: Normocephalic, atraumatic. Eyes: EOMI, normal conjunctiva bilaterally Chest/axilla: Normal chest wall appearance and motion. Nontender with no deformity. Cardiovascular: Regular rate and rhythm with a normal S1 and S2. No gallops, murmurs, or rubs. 2+ distal pulses. Respiratory: Lungs have equal breath sounds bilaterally, clear to auscultation and percussion. No rales, rhonchi or wheezes noted. No increased work of breathing, no retractions or nasal flaring. Abdomen/GI: Soft, non-tender, with normal bowel sounds. No guarding or rebound. No evidence of tenderness throughout. Skin: Warm, dry with normal turgor. Normal color with no rashes, no lesions, and no evidence of cellulitis. MS/ Extremity: Pulses equal, no cyanosis. Neurovascular intact. Full, normal range of motion. Ambulatory without difficulty. 07:25 MS/ Extremity: Pulses equal, no cyanosis. Neurovascular intact. Bilateral BKA sd2 present. 07:26 ECG was reviewed by the Attending Physician. Paced rhythm, rate 95, no STEMI or sd2 Sgarbossa criteria Vital Signs: 07:00 BP 160 / 101; Pulse 92; Resp 14; Pulse Ox 100% on R/A; Weight 75.75 kg (R); Height 5 jb4 ft. 7 in. (170.18 cm); Pain 9/10; 07:09 BP 154 / 89; Pulse 93; Resp 24; Pulse Ox 100% on R/A; Pain 9/10; lp1 07:30 BP 134 / 79; Pulse 78; Resp 26; Temp 97.9; Pulse Ox 100% on R/A; Pain 9/10; jl7 08:00 BP 129 / 84; Pulse 78; Resp 25; Pulse Ox 100% ; Pain 8/10; jl7 08:30 BP 125 / 75; Pulse 83; Resp 17; Pulse Ox 99% ; Pain 6/10; jl7 09:00 BP 125 / 74; Pulse 85; Resp 15; Pulse Ox 100% ; Pain 8/10; jl7 10:00 BP 118 / 71; Pulse 80; Resp 15; jl7 11:10 BP 121 / 77; Pulse 78; Resp 15; Pulse Ox 98% ; jl7 07:00 Body Mass Index 26.16 (75.75 kg, 170.18 cm) jb4 MDM: 07:03 Patient medically screened. sd2 07:26 HEART Score: History: Highly Suspicious (2), ECG: Non specific repolarization sd2 disturbance / LBTB / PM (1), Age: > 45 and < 65 years (1), Risk Factors: > or = 3 Risk factors for atherosclerotic disease (2). 07:27 Differential diagnosis: acute myocardial infarction, acute pericarditis, anxiety, chest sd2 wall pain, cholecystitis, esophagitis, gastritis, pancreatitis, pneumonia, pneumothorax, pulmonary embolus, stable angina, thoracic aortic disection, among others. Data reviewed: vital signs, nurses notes. 11:40 HEART Score: History: ECG: Age: Risk Factors: Troponin: < or = 1 x Normal Limit (0), sd2 Total Score = 6. Data interpreted:. Counseling: I had a detailed discussion with the patient and/or guardian regarding: the historical points, exam findings, and any diagnostic results supporting the discharge/admit diagnosis, lab results, radiology results, the need for outpatient follow up, to return to the emergency department if symptoms worsen or persist or if there are any questions or concerns that arise at home. Medical screen evaluation completed. [facility] emergency medical condition absent. ED course: Labs and imaging reviewed. Delta trop neg. BNP at baseline compared to prior admissions. Pt with 2 recent admissions for similar symptoms with negative evaluations. He has prescriptions for his home medications but states he only receives a check once a month to get his medications and he will not get this until 01/12. Home medications that I could verify were given here in ED today and pt advised that he must follow up with his PCP this time and call Monday to get an appointment as well as with his concrete engineering technician regarding his symptoms. His pain is improved and he is sleeping comfortably at time of my repeat evaluation. He is comfortable with plan for discharge and outpatient follow-up and verbalizes understanding of strict return precautions.. ED course: Patient improved after treatment, currently in no distress, and stable for dispo home. I anticipate patient will do well on outpatient therapy, no concerning findings indicating a need for further diagnostic testing or admission to hospital today. I advised pt on appropriate care for home and strict return precautions for new or worsening symptoms and need for follow-up with PCP/specialist, pt voiced understanding.. 01/08 07:12 Order name: Basic Metabolic Panel; Complete Time: 07:58 sd2 01/08 07:12 Order name: CBC with Diff; Complete Time: 07:58 sd2 01/08 07:12 Order name: LFT's; Complete Time: 07:58 sd2 01/08 07:12 Order name: Magnesium; Complete Time: 07:58 sd2 01/08 07:12 Order name: NT PRO-BNP; Complete Time: 07:58 sd2 01/08 07:12 Order name: PT-INR; Complete Time: 07:58 sd2 01/08 07:12 Order name: Troponin HS; Complete Time: 07:58 sd2 01/08 07:12 Order name: XRAY Chest (1 view); Complete Time: 07:58 sd2 01/08 07:16 Order name: Ptt, Activated; Complete Time: 07:58 sd2 01/08 08:53 Order name: Troponin HS: Repeat to be sent at 1058AM; Complete Time: 11:32 sd2 01/08 07:12 Order name: EKG; Complete Time: 07:13 sd2 01/08 07:12 Order name: Cardiac monitoring; Complete Time: 07:13 sd2 01/08 07:12 Order name: EKG - Nurse/Tech; Complete Time: 07:13 sd01/08 07:12 Order name: IV Saline Lock; Complete Time: 07:13 sd01/08 07:12 Order name: Labs collected and sent; Complete Time: 07:13 sd01/08 07:12 Order name: O2 Per Protocol; Complete Time: 07:13 sd01/08 07:12 Order name: O2 Sat Monitoring; Complete Time: 07:13 sd2 Administered Medications: 07:30 Drug: morphine 4 mg Route: IVP; Infused Over: 4 mins; Site: left forearm; 07:59 Follow up: Response: Pain is unchanged, physician notified 07:59 Follow up: Response: RASS: Restless (+1) 07:30 Drug: Zofran (Ondansetron) 4 mg Route: IVP; Site: left forearm; 08:00 Follow up: Response: No adverse reaction 08:00 Drug: morphine 4 mg {Note: VO from Dr. Gonzales.} Route: IVP; Infused Over: 4 mins; Site: [facility] left forearm; 08:30 Follow up: Response: No adverse reaction; Pain is decreased; RASS: Drowsy (-1) jl7 12:25 Drug: Lisinopril 2.5 mg Route: PO; 12: Follow up: Response: Medication administered at discharge. jl7 12:25 Drug: Atorvastatin 40 mg Route: PO; 7 12: Follow up: Response: Medication administered at discharge. 7 12:25 Drug: Furosemide 40 mg Route: PO; 12: Follow up: Response: Medication administered at discharge. 7 12:25 Drug: metFORMIN 500 mg Route: PO; 7 : Follow up: Response: Medication administered at discharge. 12:25 Drug: Spironolactone 25 mg Route: PO; : Follow up: Response: Medication administered at discharge. 7 12:25 Drug: Glucotrol (glipiZIDE) 10 mg Route: PO; 12: Follow up: Response: Medication administered at discharge. 12:25 Drug: Eliquis (apixaban) 5 mg Route: PO; 12: Follow up: Response: Medication administered at discharge. [facility] Disposition Summary: 01/08/22 11:43 Discharge Ordered Location: Home sd2 Problem: an acute exacerbation sd2 Symptoms: are resolved sd2 Condition: Stable sd2 Diagnosis - Chest pain, unspecified sd2 Followup: sd2 - With: Private Physician - When: 1 - 2 days - Reason: Recheck today's complaints, Continuance of care, Re-evaluation by your physician Followup: sd2 - With: Emergency Department - When: As needed - Reason: Discharge Instructions: - Discharge Summary Sheet sd2 - Nonspecific Chest Pain, Adult sd2 Forms: - Medication Reconciliation Form sd2 - Thank You Letter sd2 - Antibiotic Education sd2 - Prescription Opioid Use sd2 Signatures: Dispatcher [employer] Addy Oneal, RN RN jb4 Sung Niño RN RN jl7 Goldie Gonzales MD MD sd2
--- NOTE | 2022-01-08 11:44 | ER ---
Nurse's Notes [facility] Name: Ernie Rooney Age: 61 yrs Sex: Male : 1960 Arrival Date: 01/08/2022 Time: 07:02 Bed 4 Private MD: Diagnosis: Chest pain, unspecified Presentation: 01/08 07:00 Chief complaint: EMS states: Pt reports chest pain that started about 40minutes ago. jb4 Radiates to his left arm, reports tingling in the left hand. given 324 of aspirin. 07:00 Coronavirus screen: At this time, the client does not indicate any symptoms associated jb4 with coronavirus-19. Ebola Screen: No symptoms or risks identified at this time. Initial Sepsis Screen: Does the patient meet any 2 criteria? HR > 90 bpm. Yes Does the patient have a suspected source of infection? No. Patient's initial sepsis screen is negative. Risk Assessment: Do you want to hurt yourself or someone else? Patient reports no desire to harm self or others. Onset of symptoms was January 08, 2022. Transition of care: patient was not received from another setting of care. 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 - Social history:: Smoking status: Patient denies any tobacco usage or history of. Screenin:30 Abuse screen: Denies threats or abuse. Denies injuries from another. Nutritional jl7 screening: No deficits noted. Tuberculosis screening: No symptoms or risk factors identified. Fall Risk IV access (20 points). Gait- Normal/Bed Rest/Wheelchair (0 pts) Total Cummings Fall Scale indicates No Risk (0-24 pts). Assessment: 07:30 General: Appears in no apparent distress. uncomfortable, Behavior is calm, cooperative, jl7 appropriate for age. Pain: Complains of pain in anterior aspect of left upper chest Pain radiates to back and left arm Pain currently is 9 out of 10 on a pain scale. Quality of pain is described as sharp, tingling, Pain began 1 hour ago. Is continuous. Neuro: Naidu Agitation-Sedation Scale (RASS): +1 Restless Level of Consciousness is awake, alert, obeys commands, Oriented to person, place, time, situation. Cardiovascular: Heart tones present Patient's skin is warm and dry. Rhythm is ventricular pacer. Respiratory: Airway is patent Respiratory effort is even, unlabored, Respiratory pattern is regular, tachypnea Breath sounds are clear Denies shortness of breath. Derm: Skin is pink, warm \\T\\ dry. 08:00 Reassessment: Pt noted to be moaning, reports pain medication did not really help, jl7 reports pain 8/10, ERD notified, VO for 4mg Morphine IVP, pt medicated at ordered. 08:30 Reassessment: Patient appears in no apparent distress at this time. No changes from 7 previously documented assessment. pt laying in bed with eyes closed, appears to be resting comfortably, responds easily to verbal stimuli, reports pain down to 6/10 at this time. Neuro: Naidu Agitation-Sedation Scale (RASS): -1 Drowsy. 09:00 Reassessment: Patient appears in no apparent distress at this time. No changes from 7 previously documented assessment. Pt laying in bed with eyes closed, appears to be resting comfortably, responds easily to verbal stimuli, states "It's coming back." Reports pain rated 8/10 at this time. ERD notified no new orders at this time. Neuro: Naidu Agitation-Sedation Scale (RASS): -1 Drowsy. 11:10 Reassessment: Patient appears in no apparent distress at this time. No changes from jl7 previously documented assessment. pt laying in bed wit eyes closed, respirations even and unlabored, responds easily to verbal stimuli, repeat troponin drawn and sent. 12:27 Reassessment: Pt discharged awaiting EMS transportation. jl7 12:46 Reassessment: EMS at bedside to transport pt home. jl7 Vital Signs: 07:00 BP 160 / 101; Pulse 92; Resp 14; Pulse Ox 100% on R/A; Weight 75.75 kg (R); Height 5 jb4 ft. 7 in. (170.18 cm); Pain 9/10; 07:09 BP 154 / 89; Pulse 93; Resp 24; Pulse Ox 100% on R/A; Pain 9/10; lp1 07:30 BP 134 / 79; Pulse 78; Resp 26; Temp 97.9; Pulse Ox 100% on R/A; Pain 9/10; jl7 08:00 BP 129 / 84; Pulse 78; Resp 25; Pulse Ox 100% ; Pain 8/10; jl7 08:30 BP 125 / 75; Pulse 83; Resp 17; Pulse Ox 99% ; Pain 6/10; jl7 09:00 BP 125 / 74; Pulse 85; Resp 15; Pulse Ox 100% ; Pain 8/10; jl7 10:00 BP 118 / 71; Pulse 80; Resp 15; jl7 11:10 BP 121 / 77; Pulse 78; Resp 15; Pulse Ox 98% ; jl7 07:00 Body Mass Index 26.16 (75.75 kg, 170.18 cm) jb4 ED Course: 07:02 Patient arrived in ED. lp1 07:03 Goldie Gonzales MD is Attending Physician. sd2 07:05 Triage completed. jb4 07:05 Arm band placed on left wrist. jb4 07:08 Maintain EMS IV. Dressing intact. Good blood return noted. Site clean \\T\\ dry. Gauge \\T\\ lp 1 site: 20g to L FA. 07:09 Patient has correct armband on for positive identification. Call light in reach. Client lp1 placed on continuous cardiac and pulse oximetry monitoring. NIBP monitoring applied. 07:09 Patient maintains SpO2 saturation greater than 95% on room air. lp1 07:14 Mariza Waller, RN is Primary Nurse. lp1 07:14 Primary Nurse role handed off by Mariza Waller, RN jl7 07:14 Sung Niño, RN is Primary Nurse. jl7 07:15 Initial lab(s) drawn, by ED staff, sent to lab. EKG done, by ED staff, reviewed by stone Gonzales MD. 07:30 Warm blanket given. jl7 07:50 XRAY Chest (1 view) In Process Unspecified. EDMS 12:27 No provider procedures requiring assistance completed. IV discontinued, intact, jl7 bleeding controlled, No redness/swelling at site. Pressure dressing applied. Administered Medications: 07:30 Drug: morphine 4 mg Route: IVP; Infused Over: 4 mins; Site: left forearm; 7 07:59 Follow up: Response: Pain is unchanged, physician notified 07:59 Follow up: Response: RASS: Restless (+1) 7 07:30 Drug: Zofran (Ondansetron) 4 mg Route: IVP; Site: left forearm; 7 08:00 Follow up: Response: No adverse reaction 7 08:00 Drug: morphine 4 mg {Note: VO from Dr. Gonzales.} Route: IVP; Infused Over: 4 mins; Site: jl7 left forearm; 08:30 Follow up: Response: No adverse reaction; Pain is decreased; RASS: Drowsy (-1) jl7 12:25 Drug: Lisinopril 2.5 mg Route: PO; 7 12:26 Follow up: Response: Medication administered at discharge. jl7 12:25 Drug: Atorvastatin 40 mg Route: PO; jl7 12:26 Follow up: Response: Medication administered at discharge. jl7 12:25 Drug: Furosemide 40 mg Route: PO; jl7 12:26 Follow up: Response: Medication administered at discharge. jl7 12:25 Drug: metFORMIN 500 mg Route: PO; jl7 12:26 Follow up: Response: Medication administered at discharge. jl7 12:25 Drug: Spironolactone 25 mg Route: PO; jl7 12:26 Follow up: Response: Medication administered at discharge. jl7 12:25 Drug: Glucotrol (glipiZIDE) 10 mg Route: PO; jl7 12:26 Follow up: Response: Medication administered at discharge. jl7 12:25 Drug: Eliquis (apixaban) 5 mg Route: PO; jl7 12:26 Follow up: Response: Medication administered at discharge. jl7 Medication: 07:30 VIS not applicable for this client. jl7 Outcome: 11:43 Discharge ordered by . sd2 12:27 Discharged to home ambulatory. jl7 12:27 Condition: stable 12:27 Discharge instructions given to patient, Instructed on discharge instructions, follow up and referral plans. Demonstrated understanding of instructions, follow-up care. 12:47 Patient left the ED. jl7 Signatures: Dispatcher [employer] EDMS Mariza Waller RN RN lp1 Addy Alcala RN RN jb4 Sung Niño RN RN jl7 Goldie Gonzales MD MD sd2 Corrections: (The following items were deleted from the chart) 07:06 07:05 Arm band placed on right wrist. jb4 jb4
[2022-01-08] MEDS ORDERED: METFORMIN HCL 500 MG TAB ONE (12:02)
[2022-01-08] MEDS ORDERED: FUROSEMIDE 40 MG TABLET ONE (12:02)
[2022-01-08] MEDS ORDERED: ATORVASTATIN 20 MG TAB ONE (12:02)
[2022-01-08] MEDS ORDERED: lisinopriL 5 MG TAB ONE (12:02)
[2022-01-08] MEDS ORDERED: APIXABAN 5 MG TABLET ONE (12:31)
[2022-01-08] MEDS ORDERED: SPIRONOLACTONE 25 MG TABLET PO ONE (13:00)
[2022-01-08] MEDS ORDERED: glipiZIDE 5 MG TAB PO ONE (13:00)
[2022-01-08 13:47] VITALS: TEMP 97.9
[2022-01-08 14:01] VITALS: BP 121/77; O2SAT 98
--- NOTE | 2022-01-10 08:14 | EKG ---
Test Date: 2022-01-08 Test Time: 07:03:27 Marble Mason: LEYLA MEASUREMENT RESULTS: Intervals: Rate: 95 IA: 176 QRSD: 156 QT: 410 QTc: 515 [place]: P: 45 IA: 176 QRS: -57 T: 108 INTERPRETIVE STATEMENTS: Electronic ventricular pacemaker Compared to ECG 12/26/2021 22:39:40 No significant changes Electronically Signed On 01-10-22 08:07:03 CDT by Luca Royal
== END 2022-01-08 12:47 | disposition home or self-care (01) ==
LOC: ER 06:58
DX: R07.89 Other chest pain (principal); R11.0 Nausea; R06.02 Shortness of breath; R20.2 Paresthesia of skin; Z95.1 Presence of aortocoronary bypass graft; Z89.512 Acquired absence of left leg below knee; Z89.511 Acquired absence of right leg below knee; Z95.0 Presence of cardiac pacemaker; E03.9 Hypothyroidism, unspecified; I10 Essential (primary) hypertension; E78.00 Pure hypercholesterolemia, unspecified
CPT/HCPCS: 93005; 85025; 80048; 36415; 83735; 85610; 80076; 85730; 84484 ×2; 83880; 71045; 96375; 96374; 99285; J2405

== ENCOUNTER 2022-01-13 15:01 | Observation (INO) | payer OTHER ==
--- OUTSIDE RECORDS SUMMARY | 2022-01-13 15:09 | XMS REPORT | Continuity of Care Document ---
:1960 Author Organization [facility] t Address [address] [place] [address] Care Team Providers Name Role Phone MONIKA HALL MD Primary Care Physician [id number] Attending Clinician Unavailable Harshal Zhu Attending Clinician [...] MONTES DE OCA Attending Clinician Unavailable NICHELLE PALACOIS Attending Clinician Unavailable [id number] Admitting Clinician Unavailable Nika Martin Admitting Clinician [...] Number Effective Date Expiration Date S willow [facility] [id number] Mind Candy [id number] 2018spring 00:00:00 [employer] [id number] 2004 LUCY Frankel 00:00:00 [facility] [...] on on 00:00: [place] exertion) exertion) 00 [facility] uriel Branch Pleural Pleural Disease Active Univers effusion, effusion, 8-13 [place] of bilateral bilateral 00:[place] CHF CHF Disease Active Univers (congestiv (congestiv 5-05 it y of e heart e heart 00:00: [place] failure), failure), 00 [facility] uriel NYHA class NYHA class Br [...] Added automatic ally from request for surgery [id number] Troponin I Troponin I Disease Active 2019- [...] adult in adult 9-14 ity of 00:00: [place] [facility] Cellulitis Cellulitis Disease Active 2019- U nivers of left of left 6-27 ity of foot foot 00:00: [place] 00 Medical [facility] Pacemaker Pacemaker Disease Active Uni vers 3-18 ity of 00:00: [place] 00 Medical Branch PAF PAF Disease Active 2019- Univers (paroxysma (paroxysma 3-18 it y of l atrial l atrial 00:00: [place] fibrillati fibrillati 00 Me dical on) on) Branch Abdominal Abdominal Disease Active 2019- Uni vers pain pain 2-27 ity of 00:00: [place] [facility] Pacemaker Pacemaker Disease Active Uni vers malfunctio malfunctio 2-04 it y of n n 00:00: [place] 00 Medical [facility] Cellulitis Cellulitis Disease Active [...] 00:00: [place] involving involving 00 Medi uriel venetie ira venetie ira 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 Type 2 Type 2 Disease Active Univers diabetes diabetes 01-17 ity of mellitus mellitus 00:00: [place] without without 00 Medical complicati complicati Br anch on, on, without without long-term long-term current current use of use of insulin insulin Essential Essential Disease Active Uni vers hypertensi hypertensi 01-17 it y of on on 00:00: [place] [facility] Other Other Disease Active Univers hyperlipid hyperlipid 01-17 it y of emia emia 00:00: [place] [facility] Stroke Stroke Disease Active Univers 5-12 ity of 00:00: [place] [facility] Left-sided Left-sided Disease Active U nivers weakness weakness 5- ity of 00:00: [place] [facility] Left sided Left sided Disease Active U nivers numbness numbness - ity of 00:00: [place] 00 Medical Branch S/P admn S/P admn Disease Active Unive rs tPA in tPA in -11 ity of diff fac diff fac 00:00: [place] w/n last w/n last 00 Medica l 24 hr bef 24 hr bef Bran ch adm to adm to crnt fac crnt fac Unstable Unstable Disease Active Unive rs angina angina 4-10 ity of 00:00: [place] [facility] Atypical Atypical Disease Active Unive rs chest pain chest pain 2-22 it y of 00:00: [place] [id number] Medical Branch Chest pain Chest pain Problem Active [facility] Coronary CAD Problem Active [facility] artery (coronary [facility] disease artery Patient disease) Medical [place] Diabetic DKA Problem Active [facility] ketoacidos (diabetic Esme es is ketoacidos Patien t es) Medical [place] Hyperglyce Hyperglyce Problem Active [facility] bambi bambi [facility] Patient [facility] Hypertensi Hypertensi Problem Active [facility] on on [facility] Patient [facility] Pancreatit Pancreatit Problem Active [facility] is is [facility] Patient [facility] Center Uncontroll Uncontroll Problem Active [facility] ed ed [facility] diabetes diabetes Patien t mellitus mellitus Medica l Center Allergies, Adverse Reactions, Alerts Allergy Allergy Status Severity Reaction(s) Onset Inactive Treating Comm ents Source Name Type Date Date Clinician No Known DA Active U [facility] Allergie 3-22 [place] 00:00: d 00 [facility] No Known DA Active U 2020- [facility] Allergie 3-22 [place] 00:00: d 00 [facility] No Known DA Active U 2017- [facility] Allergie 2-31 Clear s 00:00: Mejia 00 [facility] No Known DA Active U 2017- [facility] Allergie 2-31 Clear s 00:00: Mejia 00 [facility] No Known DA Active U 2017-0 [facility] Allergie 3-26 [place] 00:00: e 00 [facility] NO KNOWN Drug Active Univers ALLERGIE Class ity of S [place] [facility] Social History Social Habit Start Date Stop Date Quantity Comments Source History of Cigarette Smoker Universi ty of tobacco use [place] [facility] History SDOH University o f Alcohol Frequency [place] [facility] ed[facility] History SDOH University o f Alcohol Std [place] [facility] Drinks [facility] History [facility] University o f Alcohol Binge [place] [facility] Exposure to 2021-10-30 2021-11-09 Unable to assess Univers ity of SARS-CoV-2 00:00:00 15:13:00 [facility] (event) Branch Alcohol intake 2021-11-05 2021-11-05 1.71 /d University of 00:00:00 00:00:00 [facility] Branch Tobacco Comment 2021-11-03 2021-11-03 quit 15 years ago Un iversity of 00:00:00 00:00:00 [facility] Branch Education 2021-10-27 2021-10-27 9 University of 00:00:00 00:00:00 [place] [facility] History [facility] 2020-03-16 2020-03-16 3 University o f Financial 00:00:00 00:00:00 [place] [facility] History SDHI Food 2020-03-16 2020-03-16 2 Univers ity of Worry 00:00:00 00:00:00 [place] [facility] History SDHI Food 2020-03-16 2020-03-16 2 Univers ity of Scarcity 00:00:00 00:00:00 [place] [facility] History SDOH 2020-03-16 2020-03-16 1 University o f Transport Med 00:00:00 00:00:00 [place] [facility] History SDOH 2020-03-16 2020-03-16 1 University o f Transport Non-Med 00:00:00 00:00:00 [facility] Alcohol Comment 2019-07-18 2019-07-18 quit drinking Malgorzata sity of 00:00:00 00:00:00 2013 but drank [facility] heavily before Branch this Tobacco use and 2018-07-14 2018-07-14 Never used Universit y of exposure 00:00:00 00:00:00 [facility] [place] Sex Ass[birth year] At [birth year] Universit y of 00:00:00 00:00:00 [facility] [place] Smoking Status Start Date Stop Date Source Former smoker 2018-07-14 00:00:00 2018-07-14 00:00:00 [facility] Medications Ordered Filled Start Stop Current Ordering Indication Dosage Frequency Signature Comments Components Source Medication Medication Date Date Medication? Clinician (SIG) Name Name HYDROcodone 2021- No 1{tbl} 1 tablet, Univers -acetaminop 11-09 Oral, ity of hen (NORCO) 22:30: 21:37 [place]CE[place] 1 [place] 10[place]325 [place] 00 :00 dose, On Medica l tablet Mon [place] tablet 11/09/21 at 1730, Routine ketorolac 2021- [...] at 0215, 1 mL gabapentin 2021- Yes [id number] 300mg Take 1 Univers 300 mg 11-05 capsule by ity of capsule 00:00: 04:59 mouth 3 [place] 00 :00 (three) Medical times Branch daily for 10 days. gabapentin 2021- Yes [id number] 300mg Take 1 Univers 300 mg 11-05 capsule by ity of capsule 00:00: 04:59 mouth 3 [place] 00 :00 (three) Medical times Branch daily for 10 days. aspirin 81 2021- Yes [id number] 81mg Take 1 Univers mg chewable 6-16 07-17 tablet by it y of tablet 00:00: 04:59 mouth [place] 00 :00 daily for Medical 30 days. Branch aspirin 81 2021- Yes [id number] 81mg Take 1 Univers mg chewable 6-16 07-17 tablet by it y of tablet 00:00: 04:59 mouth [place] 00 :00 daily for Medical 30 days. Branch aspirin 81 2021- Yes [id number] 81mg Take 1 Univers mg chewable 6-16 07-17 tablet by it y of tablet 00:00: 04:59 mouth [place] 00 :00 daily for Medical 30 days. Branch proMETHazin Yes [id number] 25mg Take 1 Univers e 25 mg 6-03 tablet by ity of tablet 00:00: mouth [place] 00 every 6 Medical (six) Branch hours as needed for Nausea and Vomiting (N/V). proMETHazin Yes [id number] 25mg Take 1 Univers e 25 mg 6-03 tablet by ity of tablet 00:00: mouth [place] 00 every 6 Medical (six) Branch hours as needed for Nausea and Vomiting (N/V). proMETHazin Yes [id number] 25mg Take 1 Univers e 25 mg 6-03 tablet by ity of tablet 00:00: mouth [place] 00 every 6 Medical (six) Branch hours as needed for Nausea and Vomiting (N/V). fenofibrate 2021- Yes [id number] 134mg Take 1 Univers micronized -19 12- capsule by it y of 134 mg 00:00: 04:59 mouth [place] capsule 00 :00 daily for Medical 30 days. Branch lisinopriL 2021- Yes [id number] 2.5mg Take 1 Univers 2.5 mg 5-19 12- tablet by ity of tablet 00:00: 04:59 mouth [place] 00 :00 daily for Medical 30 days. Branch fenofibrate 2021- Yes [id number] 134mg Take 1 Univers micronized -19 12- capsule by it y of 134 mg 00:00: 04:59 mouth [place] capsule 00 :00 daily for Medical 30 days. Branch lisinopriL 2021- Yes [id number] 2.5mg Take 1 Univers 2.5 mg -19 12- tablet by ity of tablet 00:00: 04:59 mouth [place] 00 :00 daily for Medical 30 days. Branch fenofibrate 2021- Yes [id number] 134mg Take 1 Univers micronized -19 12- capsule by it y of 134 mg 00:00: 04:59 mouth [place] capsule 00 :00 daily for Medical 30 days. Branch lisinopriL 2021- Yes [id number] 2.5mg Take 1 Univers 2.5 mg -19 12- tablet by ity of tablet 00:00: 04:59 mouth [place] 00 :00 daily for Medical 30 days. Branch furosemide 2021- Yes [id number] 40mg Take 1 Univers 40 mg 5-30 [...] s: atrial fibrillati on calcitrioL 2021- Yes [id number] .5ug Take 1 Univers 0.5 mcg 5-30 06-30 capsule by ity o f capsule 00:00: 04:59 mouth [place] 00 :00 daily for Medical 30 days. Branch insulin NPH 2021- Yes [id number] 5U inject 5 Univers (HUMULIN N 5-30 06-30 Units ity of NPH U-100 00:00: 04:59 [place]ULIN[place] 00 :00 skin every Medic al 100 unit/mL evening Branc h injection for 30 days. atorvastati 2021- Yes [id number] 40mg Take 1 Univers n 40 mg 5-30 06-30 tablet by ity of tablet 00:00: 04:59 mouth at [place] 00 :00 bedtime Medical for 30 Branch days. carvediloL 2021- Yes [id number] 3.125mg Take 1 Univers 3.125 mg 5-30 06-30 tablet by ity o f tablet 00:00: 04:59 mouth 2 [place] 00 :00 (two) Medical times Branch daily with meals for 30 days. furosemide 2021- Yes [id number] 40mg Take 1 Univers 40 mg 5-30 [...] s: atrial fibrillati on calcitrioL 2021- Yes [id number] .5ug Take 1 Univers 0.5 mcg 5-30 06-30 capsule by ity o f capsule 00:00: 04:59 mouth [place] 00 :00 daily for Medical 30 days. Branch insulin NPH 2021- Yes [id number] 5U inject 5 Univers (HUMULIN N 5-30 06-30 Units ity of NPH U-100 00:00: 04:59 [place]ULIN[place] 00 :00 skin every Medic al 100 unit/mL evening Branc h injection for 30 days. atorvastati 2021- Yes [id number] 40mg Take 1 Univers n 40 mg 5-30 06-30 tablet by ity of tablet 00:00: 04:59 mouth at [place] 00 :00 bedtime Medical for 30 Branch days. carvediloL 2021- Yes [id number] 3.125mg Take 1 Univers 3.125 mg 5-30 06-30 tablet by ity o f tablet 00:00: 04:59 mouth 2 [place] 00 :00 (two) Medical times Branch daily with meals for 30 days. furosemide 2021- Yes [id number] 40mg Take 1 Univers 40 mg 5-30 [...] s: atrial fibrillati on calcitrioL 2021- Yes [id number] .5ug Take 1 Univers 0.5 mcg 5-30 -30 capsule by ity o f capsule 00:00: 04:59 mouth [place] 00 :00 daily for Medical 30 days. Branch insulin NPH 2021- Yes [id number] 5U inject 5 Univers (HUMULIN N 5-30 06-30 Units ity of NPH U-100 00:00: 04:59 [place]ULIN[place] 00 :00 skin every Medic al 100 unit/mL evening Branc h injection for 30 days. atorvastati 2021- Yes [id number] 40mg Take 1 Univers n 40 mg 5-30 06-30 tablet by ity of tablet 00:00: 04:59 mouth at [place] 00 :00 bedtime Medical for 30 Branch days. carvediloL 2021- Yes [id number] 3.125mg Take 1 Univers 3.125 mg 5-30 06-30 tablet by ity o f tablet 00:00: 04:59 mouth 2 [place] 00 :00 (two) Medical times Branch daily with meals for 30 days. metFORMIN Yes [id number] 500mg Take 1 U nivers 500 mg 3-02 tablet by ity of tablet 00:00: mouth 2 [place] 00 (two) Medical times Branch daily with meals. metFORMIN 2021-0 Yes [id number] 500mg Take 1 U nivers 500 mg 3-02 tablet by ity of tablet 00:00: mouth 2 [place] (two) Medical times Branch daily with meals. metFORMIN 2021-0 Yes [id number] 500mg Take 1 U nivers 500 mg 3-02 tablet by ity of tablet 00:00: mouth 2 [place] (two) Medical times Branch daily with meals. albuterol Yes [id number] 2{puff} Inhale 2 Univers 90 2-21 Puffs 2 ity of mcg/actuati 00:00: (two) [place] on inhaler 00 times Medical daily. Branch collagenase Yes [id number] Use as Univers 250 2-21 directed ity of unit/gram 00:00: by office Juan J as ointment 00 Medical Branch cyclobenzap Yes [id number] 10mg Take 1 Univers rine 10 mg 2-21 tablet by ity of tablet 00:00: mouth 2 [place] (two) Medical times Branch daily as needed for Muscle Spasms. dextrometho Yes [id number] 10mL Take 10 mL Univers rphan-guaif 2-21 [...] Pain (scale 4-6). melatonin 3 0 Yes [id number] 3mg Take 1 Univers mg tablet 2-21 tablet by ity o f 00:00: mouth at [place] 00 bedtime. Medical Branch ondansetron 0 Yes [id number] 4mg Take 1 Univers 4 mg 2-21 tablet by ity of disintegrat 00:00: mouth [place] ing tablet 00 every 8 Medica l (eight) Branch hours as needed for Nausea and Vomiting (N/V). albuterol 0 Yes [id number] 2{puff} Inhale 2 Univers 90 2-21 Puffs 2 ity of mcg/actuati 00:00: (two) [place] on inhaler 00 times Medical daily. Branch collagenase Yes [id number] Use as Univers 250 2-21 directed ity of unit/gram 00:00: by office Juan J as ointment 00 Medical Branch cyclobenzap Yes [id number] 10mg Take 1 Univers rine 10 mg 2-21 tablet by ity of tablet 00:00: mouth 2 [place] 00 (two) Medical times Branch daily as needed for Muscle Spasms. dextrometho Yes [id number] 10mL Take 10 mL Univers rphan-guaif 2-21 [...] for Pain (scale 4-6). melatonin 3 Yes [id number] 3mg Take 1 Univers mg tablet 2-21 tablet by ity o f 00:00: mouth at [place] 00 bedtime. Medical Branch ondansetron Yes [id number] 4mg Take 1 Univers 4 mg 2-21 tablet by ity of disintegrat 00:00: mouth [place] ing tablet 00 every 8 Medica l (eight) Branch hours as needed for Nausea and Vomiting (N/V). albuterol Yes [id number] 2{puff} Inhale 2 Univers 90 2-21 Puffs 2 ity of mcg/actuati 00:00: (two) [place] on inhaler 00 times Medical daily. Branch collagenase Yes [id number] Use as Univers 250 2-21 directed ity of unit/gram 00:00: by office Juan J as ointment 00 Medical Branch cyclobenzap Yes [id number] 10mg Take 1 Univers rine 10 mg 2-21 tablet by ity of tablet 00:00: mouth 2 [place] 00 (two) Medical times Branch daily as needed for Muscle Spasms. dextrometho 0 Yes [id number] 10mL Take 10 mL Univers rphan-guaif 2-21 [...] for Pain (scale 4-6). melatonin 3 Yes [id number] 3mg Take 1 Univers mg tablet 2-21 tablet by ity o f 00:00: mouth at [place] 00 bedtime. Medical Branch ondansetron Yes [id number] 4mg Take 1 Univers 4 mg 2-21 tablet by ity of disintegrat 00:00: mouth [place] ing tablet 00 every 8 Medica l (eight) Branch hours as needed for Nausea and Vomiting (N/V). Aspirin 81 Aspirin 81 2018- No Alexis [address] [facility] Mg Tab.chew Mg Tab.chew 10-26 Brooke Frankel 00:00: 00:00 Patient 00 :00 [facility] Diflunisal Diflunisal 2015- No Todd Wynn [address] [facility] (Dolobid) (Dolobid) 01-17 [facility] 500 Mg 500 Mg 00:00: 00:00 Patient Tablet, 500 Tablet, 500 00 :00 M edical Mg Oral Mg Oral Center Ondansetron Ondansetron 2015- No Todd Wynn [address] [facility] Hcl Hcl 01-17 [place] [facility] s (Zofran*) 4 (Zofran*) 4 00:00: 00:00 needed for Patient Mg Tablet, Mg Tablet, 00 :00 Nausea M edical 4 Mg 4 Mg [place] Sublingual Sublingual Clopidogrel Clopidogrel Yes 75 Daily [...] Mg Tablet Mg Tablet Day [facility] Patient [facility] Hydrocodone Hydrocodone Yes [address] [facility] Bit/Acetami Bit/Acetami Hours as [facility] nophen nophen needed for [place] ([place] [facility] [facility] 10-325 10-325 Center Tablet) 1 [...] Mg Tablet Mg Tablet Patie nt Medical [place] Nitroglycer Nitroglycer Yes As Needed [facility] in in [facility] (Nitrostat) (Nitrostat) P atient 0.4 Mg 0.4 Mg Medical Tab.subl Tab.subl Center Omeprazole Omeprazole Yes [address] 20 Mg 20 Mg [facility] Capsule. Capsule.dr John [facility] Simvastatin Simvastatin Yes [address] 80 Mg 80 Mg [facility] Tablet Tablet Patient Medical Center Tamsulosin Tamsulosin Yes Daily [facility] Hcl 0.4 Mg Hcl 0.4 Mg Esme es Cap.er.24h Cap.er.24h Pat [facility] Tramadol Tramadol Yes 50 [facility] C [...] Navid blanco Mg Oral Mg Oral :00 [facility] Insulin Insulin 2016- No 40 [...] 06-17 [facility] Capsule., Capsule., 00:00 Patient :00 [facility] Insulin Insulin No 90 Twice [...] 25 Mg Oral 25 Mg Oral :00 [facility] Albuterol Albuterol No 90 As Needed [...] 00:00 Patient Mg Oral Mg Oral :00 [facility] Methocarbam Methocarbam No 500 Three [...] 00:00 Patient Mg Oral Mg Oral :00 [facility] Nitroglycer Nitroglycer 2015- No .4 [...] Manjula ent Gm Oral Gm Oral :00 [facility] Temazepam Temazepam [address] (Restoril) (Restoril) 11-23 Theresa kes 30 Mg 30 Mg 00:00 Patient Capsule, 30 Capsule, 30 :00 M edical Mg Oral Mg Oral Center Tizanidine Tizanidine [address] Hcl 4 Mg Hcl 4 Mg 11-23 [facility] Capsule, 4 Capsule, 4 00:00 Pa tient Mg Oral Mg Oral :00 [facility] Trazodone Trazodone No [address] Hcl 50 Mg Hcl 50 Mg 11-23 Luke s Tablet, 50 Tablet, 50 00:00 Pa tient Mg Oral Mg Oral :00 [facility] Venlafaxine Venlafaxine 37.[address] [facility] Hcl 37.5 Mg Hcl 37.5 Mg 11-23 Day [facility] Tablet, Tablet, 00:00 Patient 37.5 Tab 37.5 Tab :00 Medical Oral Oral Center Cyclobenzap Cyclobenzap [address] rine Hcl 10 rine Hcl 10 12-19 Times A [facility] Mg Tablet, Mg Tablet, 00:00 Day Pa tient 10 Mg Oral 10 Mg Oral :00 [facility] ical Center Gabapentin Gabapentin [address] 300 Mg 300 Mg 12-19 Times A [facility] Capsule, Capsule, 00:00 Day Patien t 600 Mg Oral 600 Mg Oral :[address] [facility] Pregabalin Pregabalin [address] [facility] [...] 2021-01-16 Completed Universit y of Vaccine 00:00:00 [facility] [place] Influenza Virus 2021-01-16 Completed Universit y of Vaccine 00:00:00 [facility] [place] Influenza Virus 2021-01-16 Completed Universit y of Vaccine 00:00:00 [facility] [place] SARS-COV-2 COVID-19 2020-10-16 Completed Unive rsity of PEDRO/J&J VACCINE 00:00:00 [facility] [place] SARS-COV-2 COVID-19 2020-10-16 Completed Unive rsity of PEDRO/J&J VACCINE 00:00:00 [facility] [place] SARS-COV-2 COVID-19 2020-10-16 Completed Unive rsity of PEDRO/J&J VACCINE 00:00:00 [facility] [place] Influenza Virus 2020-01-21 Completed Universit y of Vaccine 00:00:00 [facility] [place] Influenza Virus 2020-01-21 Completed Universit y of Vaccine 00:00:00 [facility] [place] Influenza Virus 2020-01-21 Completed Universit y of Vaccine 00:00:00 [facility] [place] Zoster Vaccine 2019-07-17 Completed University of Recombinant 00:00:00 [facility] [place] Zoster Vaccine 2019-07-17 Completed University of Recombinant 00:00:00 [facility] [place] Zoster Vaccine 2019-07-17 Completed University of Recombinant 00:00:00 [facility] [place] Td 2019-03-29 Completed University of 00:00:00 [facility] [place] Td 2019-03-29 Completed University of 00:00:00 [facility] [place] Td 2019-03-29 Completed University of 00:00:00 [facility] [place] Influenza Virus 2018-02-18 Completed Universit y of Vaccine 00:00:00 [facility] [place] Pneumococcal 2018-02-18 Completed University o f Polysaccharide, 00:00:00 [place] Med ical PPSV23 (PNEUMOVAX) [place] Influenza Virus 2018-02-18 Completed Universit y of Vaccine 00:00:00 [facility] [place] Pneumococcal 2018-02-18 Completed University o f Polysaccharide, 00:00:00 [place] Med ical PPSV23 (PNEUMOVAX) [place] Influenza Virus 2018-02-18 Completed Universit y of Vaccine 00:00:00 [facility] [place] Pneumococcal 2018-02-18 Completed University o f Polysaccharide, 00:00:00 [place] Med ical PPSV23 (PNEUMOVAX) [place] Influenza Virus 2008-03-19 Completed Universit y of Vaccine 00:00:00 [facility] [place] Pneumococcal 2008-03-19 Completed University o f Polysaccharide, 00:00:00 [place] Med ical PPSV23 (PNEUMOVAX) Branch Influenza Virus 2008-03-19 Completed Universit y of Vaccine 00:00:00 [facility] [place] Pneumococcal 2008-03-19 Completed University o f Polysaccharide, 00:00:00 [place] Med ical PPSV23 (PNEUMOVAX) Branch Influenza Virus 2008-03-19 Completed Universit y of Vaccine 00:00:00 [facility] [place] Pneumococcal 2008-03-19 Completed University o f Polysaccharide, 00:00:00 [place] Med ical PPSV23 (PNEUMOVAX) Branch Vital Signs Vital Name Observation Time Observation Value Comments Source Systolic blood 2021-11-09 23:00:00 124 mm[Hg] Univer sity of pressure [facility] [place] Diastolic blood 2021-11-09 23:00:00 69 mm[Hg] Unive rsity of [facility] Heart rate 2021-11-09 23:00:00 72 /min [facility] Respiratory rate 2021-11-09 23:00:00 25 /min [facility] saturation in 2021-11-09 23:00:00 98 /min [place] of Arterial blood by [place] Proximex uriel Pulse oximetry Branch Body temperature 2021-11-09 20:28:39 37.22 Sandy [facility] Body height 2021-11-09 20:16:00 170.2 cm [facility] Body weight 2021-11-09 20:16:00 71.215 kg [facility] BMI 2021-11-09 20:16:00 24.59 kg/m2 [facility] Systolic blood 2021-11-05 10:00:00 134 mm[Hg] Univer sity of pressure [facility] [place] Diastolic blood 2021-11-05 10:00:00 78 mm[Hg] Unive rsity of pressure [facility] [place] Heart rate 2021-11-05 10:00:00 81 /min [facility] Body temperature 2021-11-05 08:10:00 36.28 Sandy [facility] ersity [facility] Respiratory rate 2021-11-05 08:00:00 18 /min [facility] Oxygen saturation in 2021-11-05 08:00:00 99 /min [facility] Arterial blood by [facility] Pulse oximetry Branch Body height 2021-11-05 05:48:00 170.2 cm [facility] Body weight 2021-11-05 05:48:00 71.215 kg [facility] BMI 2021-11-05 05:48:00 24.59 kg/m2 [facility] Procedures Procedure Date / Time Performing Clinician Source Performed XR CHEST 1 VW 2021-11-09 21:07:00 Troy Ku [facility] POCT GLUCOSE 2021-11-09 20:25:[address] [facility] (AUTOMATED) [facility] MAGNESIUM 2021-11-09 20:19:00 Troy Ku [facility] TROPONIN I 2021-11-09 20:19:00 Troy Ku [facility] COMP. METABOLIC PANEL 2021-11-09 20:19:00 Troy Ku [facility] ([id number]) [facility] CBC WITH DIFF 2021-11-09 20:19:00 Troy Ku [facility] N-TERMINAL PRO-BNP 2021-11-09 20:19:00 Troy Ku [facility] XR CHEST 1 VW 2021-11-05 06:38:35 Mihaela Martin [facility] [id number] 2020-08-11 00:00:00 ALDMO [facility] [id number] 2020-08-11 00:00:00 ALDMO [facility] [id number] 2020-08-11 00:00:00 ALDMO [facility] [id number] 2020-08-11 00:00:00 ALDMO [facility] Computed tomography 2017-10-24 00:00:00 ALEXIS COX [facility] Patient angiography of [facility] CT angiography of chest 2017-10-23 00:00:00 KHAI WAHL HI [facility] Computed tomography of 2017-10-23 00:00:00 KHAI WAHL CH I [facility] Patient [facility] radiopaque contrast Computed tomography of 2017-04-04 00:00:00 JACQUELYN MONTES DE OCA LUCY S t Jostin Patient brain without [facility] radiopaque contrast Computed tomography of 2017-04-04 00:00:00 JACQUELYN MONTES DE OCA [facility] S t Jostin Patient cervical spine without Medical C enter contrast US abdomen complete 2017-03-08 00:00:00 SCOTT AMIN [facility] Patient [facility] Center Encounters Start End Encounter Admission Attending Care Care Encounter Source Date/Time Date/Time Type Type Clinicians Facility Department ID 2021-06-17 Outpatient 3 [id number] ENCKY MALDONADO [id number] ENCKY 10:24:03 79937 2021-06-17 Outpatient 3 [id number] ENCKY REF [id number] ENCKY 10:22:04 09305 2020-08-23 Inpatient HCACL FERNANDO [facility] 17:41:00 71950 [facility] 2020-04-04 Inpatient Marko, HCAMN HCAMN [facility] 14:40:00 Harshal 59636 [facility] 2019-10-15 Inpatient RADHA Shah, HCAPM ENDO [facility] 15:30:00 Finn [id number] [facility] 2021-11-09 2021-11-09 Emergency X [place], [facility] ERT [id number] Univers 15:15:00 18:32:00 ity [facility] 2021-11-09 2021-11-09 Emergency [place], K [facility] 1.2.840.114 [id number] Univers 15:15:00 18:32:00 Mckenzie PEREZ 350.1.13.10 i ty [facility] 4.2.7.2.686 [facility] [id number] [facility] [address] 2021-11-05 2021-11-05 Emergency X [facility] ERT [id number] Univers 00:44:00 06:53:00 MIHAELA baugh [facility] 2021-11-05 2021-11-05 Emergency [facility] [id number] Univers 00:44:00 06:53:00 Mihaela PEREZ 350.1.13.10 ity [facility] 4.2.7.2.686 [facility] [id number] [facility] [address] 2021-11-04 2021-11-04 Transition RIVAS Feliciano 1.2.840.114 [id number] Univers 00:00:00 00:00:00 of Jennifer Micaela Aleah DUQUE 350.1.13.10 it y of VUBRUCE 4.2.7.2.686 [facility] [id number] [facility] [address] 2021-11-02 2021-11-03 Outpatient X BRAYDON [facility] [id number] Univers 22:35:00 15:46:00 OC [facility] 2021-10-27 2021-10-29 Outpatient X DERRICK [facility] DARIUS [id number] Univers 17:41:00 14:03:00 ANA MARIA [facility] 2021-07-21 2021-07-21 Outpatient Wong_H VFP VFP [id number] Village 06:58:00 06:58:00 [id number] Family Practic e 2020-10-30 2020-11-05 Inpatient EM Debi, ANNELPM [facility] [id number] - [facility] 16:50:00 13:52:00 Fede 96839 [facility] 2020-10-31 2020-10-31 Outpatient AMELIA Carrera LABO [id number] [facility] 08:22:00 08:22:00 Fede 01360 [facility] 2020-10-28 2020-10-28 Hospital Radiology [facility] 1.2.840.114 [id number] 08:30:17 23:59:00 Encounter Sera 350.1.13.10 [place] 4.2.7.2.686 [place] [id number] 807 2020-10-12 2020-10-12 Outpatient R [facility] [id number] Univers 14:00:00 14:50:48 PERLA [facility] 2020-10-06 2020-10-06 [facility] 1.2.840.114 [id number] 10:43:51 11:59:29 Visit Gina Perez 350.1.13.10 [place] 4.2.7.2.686 [facility] [id number] [address] 2020-08-19 2020-08-19 Outpatient PEGGY THORPEA [id number] [facility] 07:13:00 07:13:00 DOES_NOT [id number] [facility] 2020-08-10 2020-08-14 Inpatient AMELIA Carey INTE.02 [id number] [facility] 09:09:00 18:56:00 Johnie 82541 [facility] 2017-10-23 2017-10-27 Discharged 1 BROOKE, [facility] [id number] 17:29:00 16:54:00 Inpatient ALEXIS 90 Luke s [facility] 2017-04-03 2017-04-04 [id number] 23:17:00 03:53:00 Emergency LAIRD 56 Luke s Room [facility] 2017-03-05 2017-03-09 Discharged ER PHILIP, [facility] [id number] 06:54:00 10:58:00 Inpatient NICHELLE 44 Luke s (obs) [facility] 2017-01-04 2017-01-05 Discharged [facility] [id number] 10:33:00 18:56:00 Inpatient 61 Luke s (obs) [facility] Results Test Description Test Time Test Comments Results Result Comments Source TROPONIN I 2021-11-09 20:57:59 Test Item Value Reference Range Interpretation Comme nts TROPONIN I (test code = 0.017 ng/mL See_Comment [Au tomated message] The [id number]) system which ge nerated this result tra [...] biotin. Lab Interpretation Normal (test code = 36197-0) [facility] [id number] 20:54:59 Test Item Value Reference Range Interpretation Comments NT-proBNP (test code 6490 pg/mL See_Comment H [Autom ated = 5084184859) message] The system which generated this result transmitted reference range : <=125. The reference range was not used to interpret this result as normal/abnormal . DIANE (test code = DIANE) Biotin has been reported to cause a negative bias, interpret results relative to patient's use of biotin. Lab Interpretation Abnormal (test code = 80150-9) [facility] 20:46:35 Test Item Value Reference Range Interpretation Comments MAGNESIUM (test code = 4275260084) 1.5 mg/dL 1.7-2.4 L Lab Interpretation (test code = Abnormal 83924-6) [facility]OLIC PANEL (64665)2021-11-09 20:46:34 Test Item Value Reference Range Interpretation Comments NA (test code = 140 mmol/L 135-145 7966908656) K (test code = 3.9 mmol/L 3.5-5.0 0397812076) CL (test code = 111 mmol/L 98-108 H 5631191537) CO2 TOTAL (test code = 16 mmol/L 23-31 L 6113809631) AGAP (test code = 2-16 8205455067) BUN (test code = 14 mg/dL 7-23 5544703439) GLUCOSE (test code = 189 mg/dL 70-110 H 7012030993) CREATININE (test code = 0.66 mg/dL 0.60-1.25 4310070571) TOTAL BILI (test code = 0.8 mg/dL 0.1-1.5 5557704874) CALCIUM (test code = 8.3 mg/dL 8.6-10.6 L 0725072146) T PROTEIN (test code = 6.5 g/dL 6.3-8.2 3204316056) ALBUMIN (test code = 3.3 g/dL 3.5-5.0 L 2214544117) ALK PHOS (test code = 136 U/L 34-122 H 8148010562) ALTv (test code = 18 U/L 5-50 1742-6) AST(SGOT) (test code = 26 U/L 13-40 2960781890) eGFR (test code = mL/min/1.73m2 1091922871) DIANE (test code = DIANE) Association of [...] tests). Lab Interpretation Abnormal (test code = 72498-7) [facility] WITH [id number] 20:33:30 Test Item Value Reference Range Interpretation Comments WBC (test code = See_Comment [Automated 0349-2) message] The sy stem which generated this [...] RDW-SD (test code = 45.4 fL 38.5-51.6 53199-7) RDW-CV (test code = 14.2 % 12.1-15.4 788-0) PLT (test code = See_Comment [Automated 777-3) message] The sy stem which generated this result transmitted reference range : 150 - 328 10*3/ ?L. The reference r batsheva was not used to interpret this result as normal/abnormal . MPV (test code = 9.8 fL 9.8-13.0 75116-2) NRBC/100 WBC (test See_Comment [Automat ed code = 8569117314) message] The system which generated this result transmitted reference range : 0.0 - 10.0 /100 WBCs. The refer ence range was not u sed to interpret th is result as normal/abnormal . NRBC x10^3 (test code <0.01 See_Comment [Auto mated = 2795234267) message] The s ystem which generated this result transmitted reference range : 10*3/?L. The reference range was not used to interpret this result as normal/abnormal . GRAN MAT (NEUT) % 62.3 % (test code = 770-8) IMM GRAN % (test code 0.80 % = 1437818405) LYMPH % (test code = 25.1 % 736-9) MONO % (test code = 6.7 % 5905-5) EOS % (test code = 4.7 % 713-8) BASO % (test code = 0.4 % 706-2) GRAN MAT x10^3(ANC) 4.76 10*3/uL 1.99-6.95 (test code = 3782500276) IMM GRAN x10^3 (test 0.06 10*3/uL 0.00-0.06 code = 0265387818) LYMPH x10^3 (test code 1.92 10*3/uL 1.09-3.23 = 731-0) MONO x10^3 (test code 0.51 10*3/uL 0.36-1.02 = 742-7) EOS x10^3 (test code = 0.36 10*3/uL 0.06-0.53 711-2) BASO x10^3 (test code 0.03 10*3/uL 0.01-0.09 = 704-7) Lab Interpretation Abnormal (test code = 30626-2) [facility]2021-11-09 20:27:39 Test Item Value Reference Range Interpretation Comments POCT GLU (test code = 4105206696) 190 mg/dL 70-110 H Lab Interpretation (test code = Abnormal 35485-7) [facility] [id number] 11:52:00 Test Item Value Reference Range Interpretation Comments GLUCOSE BEDSIDE TESTING (test code = 92 mg/dL 70-110 N GLUBED) GLUCOSE BEDSIDE [id number] 08:05:00 Test Item Value Reference Range Interpretation Comments GLUCOSE BEDSIDE TESTING (test code = 62 mg/dL 70-110 L GLUBED) GLUCOSE BEDSIDE [id number] 20:40:00 Test Item Value Reference Range Interpretation Comments GLUCOSE BEDSIDE TESTING (test code 105 mg/dL 70-110 N = GLUBED) GLUCOSE BEDSIDE [id number] 17:02:00 Test Item Value Reference Range Interpretation Comments GLUCOSE BEDSIDE TESTING (test code 128 mg/dL 70-110 H = GLUBED) GLUCOSE BEDSIDE [id number] 16:37:00 Test Item Value Reference Range Interpretation Comments GLUCOSE BEDSIDE TESTING (test code 105 mg/dL 70-110 N = GLUBED) GLUCOSE BEDSIDE [id number] 08:17:00 Test Item Value Reference Range Interpretation Comments GLUCOSE BEDSIDE TESTING (test code = 88 mg/dL 70-110 N GLUBED) GLUCOSE BEDSIDE [id number] 19:45:00 Test Item Value Reference Range Interpretation Comments GLUCOSE BEDSIDE TESTING (test code 115 mg/dL 70-110 H = GLUBED) GLUCOSE BEDSIDE [id number] 18:13:00 Test Item Value Reference Range Interpretation Comments GLUCOSE BEDSIDE TESTING (test code = 74 mg/dL 70-110 N GLUBED) GLUCOSE BEDSIDE [id number] 17:29:00 Test Item Value Reference Range Interpretation Comments GLUCOSE BEDSIDE TESTING (test code = 44 mg/dL 70-110 LL GLUBED) GLUCOSE BEDSIDE [id number] 12:26:00 Test Item Value Reference Range Interpretation Comments GLUCOSE BEDSIDE TESTING (test code = 96 mg/dL 70-110 N GLUBED) GLUCOSE BEDSIDE [id number] 08:21:00 Test Item Value Reference Range Interpretation Comments GLUCOSE BEDSIDE TESTING (test code = 77 mg/dL 70-110 N GLUBED) GLUCOSE BEDSIDE [id number] 20:12:00 Test Item Value Reference Range Interpretation Comments GLUCOSE BEDSIDE TESTING (test code = 91 mg/dL 70-110 N GLUBED) GLUCOSE BEDSIDE [id number] 16:42:00 Test Item Value Reference Range Interpretation Comments GLUCOSE BEDSIDE TESTING (test code 106 mg/dL 70-110 N = GLUBED) GLUCOSE BEDSIDE [id number] 11:49:00 Test Item Value Reference Range Interpretation Comments GLUCOSE BEDSIDE TESTING (test code = 89 mg/dL 70-110 N GLUBED) GLUCOSE BEDSIDE [id number] 08:22:00 Test Item Value Reference Range Interpretation Comments GLUCOSE BEDSIDE TESTING (test code = 68 mg/dL 70-110 L GLUBED) GLUCOSE BEDSIDE [id number] 20:05:00 Test Item Value Reference Range Interpretation Comments GLUCOSE BEDSIDE TESTING (test code 137 mg/dL 70-110 H = GLUBED) GLUCOSE BEDSIDE [id number] 16:42:00 Test Item Value Reference Range Interpretation Comments GLUCOSE BEDSIDE TESTING (test code = 98 mg/dL 70-110 N GLUBED) GLUCOSE BEDSIDE [id number] 11:13:00 Test Item Value Reference Range Interpretation Comments GLUCOSE BEDSIDE TESTING (test code 118 mg/dL 70-110 H = GLUBED) GLUCOSE BEDSIDE [id number] 07:37:00 Test Item Value Reference Range Interpretation Comments GLUCOSE BEDSIDE TESTING (test code 140 mg/dL 70-110 H = GLUBED) COMPREHENSIVE METABOLIC [id number] 06:34:00 Test Item Value Reference Range Interpretation [...] TOTAL (test code = ALKP) CBC W/AUTO [id number] 06:25:00 Test Item Value Reference Range Interpretation [...] DIFF/SCN CRITERIA = MDIFF) - CT ABDOMEN W/[id number] 03:09:00 [facility] : 1960 Sex: M Name: FAITH VANCE [facility] : 1960 Age/S: 60 / M [id number] Unit #: [id number] Loc: [place] [address] Phys: Fede Carrera DO Acct: [id number] Dis Date: Status: ADM IN PHONE #:[phone] Exam Date: 10/31/20201919 FAX #: Reason: NAUSEA, VOMITING, DIARRHEA EXAMS: CPT: [id number] CT ABDOMEN W/CONTRAST 37526 EXAM: - CT ABDOMEN W/CONTRAST LOCATION: H61 [...] VANCE : 1960 Age/S: 60 / M [address] Unit #: [id number] Loc: [place] [address] Phys: Doramargareth Fede mcclellan DO Acct: [id number] Dis Date: Status: ADM IN PHONE #: [phone] Exam Date: 10/31/20201919 FAX #: Reason: NAUSEA, VOMITING, DIARRHEA EXAMS: CPT: [id number] CT ABDOMEN W/CONTRAST 34420 <Continued> small bowel wall thickening. The appendix [...] 11/01/2020 (311) PAGE 2 Signed ReportGLUCOSE BEDSIDE [id number] 21:34:00 Test Item Value Reference Range Interpretation Comments GLUCOSE BEDSIDE TESTING (test code 161 mg/dL 70-110 H = GLUBED) GLUCOSE BEDSIDE [id number] 17:32:00 Test Item Value Reference Range Interpretation Comments GLUCOSE BEDSIDE TESTING (test code 136 mg/dL 70-110 H = GLUBED) - XR ABDOMEN 1 [id number] 12:44:00 [facility] : 1960 Sex: M Name: FAITH VANCE [facility] : 1960 Age/S: 60 / M [address] Unit #: [id number] Loc: [place] [address] Phys: Fede Carrera DO Acct: [id number] Dis Date: Status: ADM IN PHONE #: [phone] Exam Date: 10/31/2020 1227 FAX #: Reason: Abdominal pain in the lower qudarants EXAMS: C PT: [id number] XR ABDOMEN 1 V 51587 Fluoro Time: DAP (Gy m2): Air Kerma [...] DO PAGE1 Signed Report Name: FAITH VANCE [facility] : 1960 Age/S: 60 / M [address] [address] #: [id number] Loc: [place] [address] Phys: Fede Carrera DO Acct: [id number] Dis Date: Status: ADM IN PHONE #: [phone] Exam Date: 10/31/2020 1227 FAX #: Reason: Abdominal pain in the lower qudarants EXAMS: CPT: [id number] XR ABDOMEN 1 V 70973 Fluoro Time: DAP (Gy m2): Air Kerma (mGy): <Continued> Technologist: Cecelia Arias RT(R) Trnscb Date/Time: 10/31/2020 (9383) tSHAYNAAGV Orig Print D/T: S: 10/31/2020 (0628) PAGE 2 Signed ReportGLUCOSE BEDSIDE [id number] 11:58:00 Test Item Value Reference Range Interpretation Comments GLUCOSE BEDSIDE TESTING (test code 105 mg/dL 70-110 N = GLUBED) GLUCOSE BEDSIDE [id number] 08:01:00 Test Item Value Reference Range Interpretation Comments GLUCOSE BEDSIDE TESTING (test code 106 mg/dL 70-110 N = GLUBED) [id number] 22:46:00 Test Item Value Reference Range Interpretation [...] yby method. Completed by Nursing: NOGLUCOSE BEDSIDE [id number] 21:55:00 Test Item Value Reference Range Interpretation Comments GLUCOSE BEDSIDE TESTING (test code 119 mg/dL 70-110 H = GLUBED) [id number] 19:33:00 Test Item Value Reference Range Interpretation [...] method. Completed by Nursing: NOCoronavirus 2019 nCoV [id number] 18:46:00 Test Item Value Reference Range Interpretation Comments Coronavirus 2019 nCoV Negative Negative Per ma nufacturer, Bedside (test code = negativ e results should [id number]) be treated aspresumptive a nd, if inconsistent [...] with COVID-19. Spec Comments: NNT PRO-BRAIN NATRIURETIC [id number] 15:51:00 Test Item Value Reference Range Interpretation Comments NT PRO-BRAIN NATRIURETIC PEPTI 6079 PG/ML 0-100 H (test code = PROBNP) Completed by Nursing: [id number] 15:51:00 Test Item Value Reference Range Interpretation [...] yby method. Completed by Nursing: NOBASIC METABOLIC [id number] 15:51:00 Test Item Value Reference Range Interpretation [...] Completed by Nursing: NO- XR CHEST 1 [id number] 15:42:00 [facility] : 1960 Sex: M Name: FAITH VANCE [facility] : 1960 Age/S: 60 / M [address] [address] Unit #: [id number] Loc: [place] [address] Phys: Todd Jacobo MD Acct: [id number] Dis Date: Status: PRE ER PHONE #: [phone] Exam Date: 10/30/2020 1524 FAX #: Reason: chest pain EXAMS: CPT: [id number] XR CHEST 1 V 06642 Fluoro Time: DAP (Gy m2): Air Kerma [...] PAGE 1 Signed Report Name: FAITH VANCE [facility] : 1960 Age/S: 60 / M [address] Unit #: [id number] Loc: [place] [address] Phys: Todd Jaocbo MD Acct: [id number] Dis Date: Status: PRE ER PHONE #: [phone] Exam Date: 10/30/2020 1524 FAX #: Reason: chest pain EXAMS: CPT: [id number] XR CHEST 1 V 03234 Fluoro Time: DAP (Gy m2): Air Kerma (mGy): <Continued>Technologist: Kim Andrews RT(R)(CT) Trnscb Date/Time: 10/30/2020 (1542) t.KATHRYNR.RB24 Orig Print D/T: S: 10/30/2020 (8407) PAGE 2 Signed ReportCBC W/O [id number] 15:31:00 Test Item Value Reference Range Interpretation [...] 9.70 fL 7.0-9.6 H MPV) BASIC METABOLIC [id number] 21:42:00 Test Item Value Reference Range Interpretation [...] 9.6 mg/dL 8.0-10.5 N CA) HEPATIC FUNCTION [id number] 21:42:00 Test Item Value Reference Range Interpretation [...] 114 IUnit/L 20-125 N code = ALKP) [id number] 21:42:00 Test Item Value Reference Range Interpretation Comments LIPASE (test code = LIP) 70 U/L 13-57 H [id number] 21:42:00 Test Item Value Reference Range Interpretation [...] by method. UA RFLX MICR CULT IF [id number] 21:37:00 Test Item Value Reference Range Interpretation [...] INDWELLING CATH (CEDENO)Cath Status: Under 72 hoursPROTHROMBIN [id number] 21:35:00 Test Item Value Reference Range Interpretation [...] (to prevent recurrent infar ct). THROMBOPLASTIN TIME [id number] 21:35:00 Test Item Value Reference Range Interpretation Comments THROMBOPLASTIN TIME 41.7 Seconds 25.0-39.5 H Therape utic Range: PARTIAL (test code = 50.4 - 88.3 Seconds PTT) Effective 09/04/2018 CBC W/AUTO [id number] 21:29:00 Test Item Value Reference Range Interpretation [...] = MDIFF) - CT ABD PELVIS W/O [id number] 20:49:00 [facility] : 1960 Sex: M Name: FAITH VANCE [facility] [place] : 1960 Age/S: 60 / M [address] [place] [address] Unit #: [id number] Loc: [place] [address] Phys: Gisel Eugene [facility] Acct: [id number] Dis Date: Status: REG ER PHONE #: [phone] Exam Date: 08/23/20202024 FAX #: [phone] Reason: DIFFUSE ABDOMINAL PAIN EXAMS: CPT CODE: [id number] CT ABD PELVIS W/O CONT 03707 Clinical indication: Diffuse abdominal pain. Contrast - [...] 1 Signed Report (CONTINUED) Name: FAITH VANCE [facility] Jonn Mejia : 1960 Age/S: 60 / M [address] [place] [address] Bl Unit #:[id number] Loc: [place] [address] Phys: Gisel Eugene Acct: [id number] Dis Date: Status: REGER PHONE #: [phone] Exam Date: 08/23/20202024 FAX #: [phone] Reason: DIFFUSE ABDOMINAL PAIN EXAMS: CPT CODE: [id number] CT ABD PELVIS W/O CONT 23887 <Continued> Peritoneum/Other: No extraluminal air. No extraluminal [...] 08/23/2020 (2051) PAGE 2 Signed ReportBASIC METABOLIC [id number] 07:51:00 Test Item Value Reference Range Interpretation [...] >3 months. [Automated mess age] The system [employer] generated this result transmitted ref erence range: >=60. Th e reference range was not used to int erpret this result as normal/abnormal . 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 [facility] [id number] 11:58:00 Test Item Value Reference Range Interpretation Comments GLUBED (test code = 149 MG/DL 70-110 H Performe d by certified GLUBED) scoring 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 at [facility] BASIC METABOLIC [id number] 08:00:00 Test Item Value Reference Range Interpretation [...] 9.9 mg/dL 8.0-10.5 N CA) CBC W/AUTO [id number] 07:08:00 Test Item Value Reference Range Interpretation [...] DIFF REQUIRED (test code NO = MDIFF) [id number] 05:21:00 Test Item Value Reference Range Interpretation Comments GLUBED (test code = 150 MG/DL 70-110 H Performe d by certified GLUBED) scoring 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 at [facility] [id number] 21:13:00 Test Item Value Reference Range Interpretation Comments GLUBED (test code = 129 MG/DL 70-110 H Performe d by certified GLUBED) scoring 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 at [facility] [id number] 16:48:00 Test Item Value Reference Range Interpretation Comments GLUBED (test code = 116 MG/DL 70-110 H Performe d by certified GLUBED) scoring 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 at [facility] [id number] 12:18:00 Test Item Value Reference Range Interpretation Comments GLUBED (test code = 136 MG/DL 70-110 H Performe d by certified GLUBED) scoring 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 at [facility] [id number] 12:18:00 Test Item Value Reference Range Interpretation Comments GLUBED (test code = 151 MG/DL 70-110 H Performe d by certified GLUBED) scoring 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 at [facility] CBC W/AUTO [id number] 07:32:00 Test Item Value Reference Range Interpretation [...] (test code NO = MDIFF) BASIC METABOLIC [id number] 07:29:00 Test Item Value Reference Range Interpretation [...] code = 9.0 mg/dL 8.0-10.5 N CA) [id number] 05:19:00 Test Item Value Reference Range Interpretation Comments GLUBED (test code = 135 MG/DL 70-110 H Performe d by certified GLUBED) scoring 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 at [facility] [id number] 20:31:00 Test Item Value Reference Range Interpretation Comments GLUBED (test code = 189 MG/DL 70-110 H Performe d by certified GLUBED) scoring 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 at [facility] [id number] 17:41:00 Test Item Value Reference Range Interpretation Comments GLUBED (test code = 140 MG/DL 70-110 H Performe d by certified GLUBED) scoring 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 at [facility] - CTA CHEST FOR [id number] 13:48:00 [facility] : 1960 Sex: M Name: FAITH VANCE [facility] [place] : 1960 Age/S: 60 / M [address] [place] [address] Unit #: [id number] Loc: [place] [address] Phys: Gina Gonzalez [employer] SUPERVISOR Acct: [id number] Dis Date: Status: ADM INPHONE #: [phone] Exam Date: 08/12/2020 0912 FAX #: [phone] Reason: CP, elevated D-dimer EXAMS: CPT CODE: [id number] [place] [address] PROCEDURE: CTA CHEST INDICATION: CP, elevated D-dimer; [...] 1 Signed Report (CONTINUED) Name: FAITH VANCE [facility] [place] : 1960 Age/S: 60 / M [address] [place] [address] Unit #: [id number] Loc: [place] [address] Phys: Gina Gonzalez NP Acct: [id number] Dis Date: Status: ADM IN PHONE #: [phone] Exam Date: 08/12/2020911 FAX #: [phone] Reason: CP, elevated D-dimer EXAMS: CPT CODE: [id number] [place] [id number] <Continued> contrastenhancement. No acute abnormality demonstrated. MUSCULOSKELETAL: Healed median sternotomy. No acute skeletal abnormality. IMPRESSION: 1. Negative for pulmonary embolic disease within limitations noted. 2. Atherosclerosis. 3. Coronary arterial calcifications with prior coronary arterial stents and CABG. 4. Interstitial edema. No consolidation. 5. Small bilateral pleural effusions. SL: [id number] at 1348 Reported and signed by: Christiano Piña M.D. CC: Johnie Montanez MD; Gina Gonzalez NP; Nika Martin MD Technologist:Kate Camacho, RT(R)(CT) CTDI: DLP: Trnscb Date/Time: 08/12/2020 (1348) Ashley Orig Print D/T: S: 08/12/2020 (5042) PAGE 2 Signed BddaadPRHDWF4733-99-93 11:38:00 Test Item Value Reference Range Interpretation Comments GLUBED (test code = 146 MG/DL 70-110 H Performe d by certified GLUBED) scoring 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 at [facility] CBC W/AUTO [id number] 09:17:00 Test Item Value Reference Range Interpretation [...] (test code NO = MDIFF) BASIC METABOLIC [id number] 08:28:00 Test Item Value Reference Range Interpretation [...] code = 8.3 mg/dL 8.0-10.5 N CA) XINMRBAWMPL8129-03-31 08:28:00 Test Item Value Reference Range Interpretation Comments PHOSPHOROUS (test code = PHOS) 3.6 MG/DL 2.5-4.9 N [id number] 08:28:00 Test Item Value Reference Range Interpretation Comments MAGNESIUM (test code = MAG) 1.94 mg/dL 1.80-2.40 N [id number] 07:16:00 Test Item Value Reference Range Interpretation Comments GLUBED (test code = 170 MG/DL 70-110 H Performe d by certified GLUBED) scoring 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 at [facility] OCWSPM6913-60-57 07:16:00 Test Item Value Reference Range Interpretation Comments GLUBED (test code = 137 MG/DL 70-110 H Performe d by certified GLUBED) scoring 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 at [facility] [id number] 17:01:00 Test Item Value Reference Range Interpretation Comments GLUBED (test code = 88 MG/DL 70-110 N Performe d by certified GLUBED) scoring 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 at [facility] [id number]-[id number] 16:56:00 Test Item Value Reference Range Interpretation Comments ACT-ISTAT (test code 186 SEC 74-137 H Perform ed by certified = ACTI) scoring 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 at [facility] PBZ-MOUVQ5602-08-23 15:03:00 Test Item Value Reference Range Interpretation Comments ACT-ISTAT (test code 235 SEC 74-137 H Perform ed by certified = ACTI) scoring 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 at [facility] [id number] 11:33:00 Test Item Value Reference Range Interpretation Comments GLUBED (test code = 97 MG/DL 70-110 N Performe d by certified GLUBED) scoring 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 at [facility] [id number] 06:54:00 Test Item Value Reference Range Interpretation Comments GLUBED (test code = 136 MG/DL 70-110 H Performe d by certified GLUBED) scoring 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 at [facility] BASIC METABOLIC [id number] 06:00:00 Test Item Value Reference Range Interpretation [...] COMMENTS: To be done morning of Heart AbavHMAWIHAMBIY5311-18-47 06:00:00 Test Item Value Reference Range Interpretation Comments PHOSPHOROUS (test code = PHOS) 4.1 MG/DL 2.5-4.9 N COMMENTS: To be done morning of Heart MhrhKRAFXEXZL9881-58-32 06:00:00 Test Item Value Reference Range Interpretation Comments MAGNESIUM (test code = MAG) 1.74 mg/dL 1.80-2.40 L COMMENTS: To be done morning of Heart CathTHROMBOPLASTIN TIME [id number] 05:55:00 Test Item Value Reference Range Interpretation Comments THROMBOPLASTIN TIME 37.9 Seconds 25.0-39.5 N Therape utic Range: PARTIAL (test code = 50.4 - 88.3 Seconds PTT) Effective 09/04/2018 CBC W/AUTO [id number] 05:44:00 Test Item Value Reference Range Interpretation [...] COMMENTS: To be done morning of Heart ZsxeBJBRIH3272-08-88 05:44:00 Test Item Value Reference Range Interpretation Comments GLUBED (test code = 92 MG/DL 70-110 N Performe d by certified GLUBED) scoring 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 at [facility] HGBA1C%2020-08-10 17:22:00 Test Item Value Reference Range Interpretation Comments HGBA1C% (test code = HGBA1C%) 6.6 %A1C 4.8-6.0 H [id number] 17:17:00 Test Item Value Reference Range Interpretation Comments GLUBED (test code = 118 MG/DL 70-110 H Performe 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 COVID 19 Asymptomatic IH [id number] 11:35:00 Test Item Value Reference Range Interpretation [...] y tests. COMMENTS: If not done this dxmfnyrxkQOFSKKAB-[id number] 11:31:00 Test Item Value Reference Range Interpretation [...] titative results may babak y by method. [id number] 11:28:00 Test Item Value Reference Range Interpretation [...] to interpret this result as normal/abnormal . 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 [facility] B-TYPE NATRIURETIC [id number] 08:19:00 Test Item Value Reference Range Interpretation Comments B-TYPE NATRIURETIC PEPTIDE (test 508.0 PG/ML 0-100 H code = BNP) BASIC METABOLIC [id number] 08:11:00 Test Item Value Reference Range Interpretation [...] 9.1 mg/dL 8.0-10.5 N CA) HEPATIC FUNCTION [id number] 08:11:00 Test Item Value Reference Range Interpretation [...] 174 IUnit/L 20-125 H code = ALKP) [id number] 08:11:00 Test Item Value Reference Range Interpretation Comments MAGNESIUM (test code = MAG) 1.80 mg/dL 1.80-2.40 N [id number] 08:11:00 Test Item Value Reference Range Interpretation [...] may babak y by method. BASIC METABOLIC [id number] 08:09:00 Test Item Value Reference Range Interpretation [...] code = CA) mg/dL 8.0-10.5 HEPATIC FUNCTION [id number] 08:09:00 Test Item Value Reference Range Interpretation Comments TOTAL PROTEIN (test code = PROT) g/dL 6.4-8.2 ALBUMIN (test code = ALB) g/dL 3.4-5.0 BILIRUBIN TOTAL (test code = BILT) mg/dL 0.0-1.0 BILIRUBIN DIRECT (test code = BILD) MG/DL 0.0-0.30 SGOT/AST (test code = AST) IUnit/L 15-37 SGPT/ALT (test code = ALT) IUnit/L 30-65 ALKALINE PHOSPHATASE TOTAL (test IUnit/L 20-125 code = ALKP) [id number] 08:09:00 Test Item Value Reference Range Interpretation Comments MAGNESIUM (test code = MAG) mg/dL 1.80-2.40 [id number] 08:09:00 Test Item Value Reference Range Interpretation [...] results may babak y by method. PROTHROMBIN [id number] 08:06:00 Test Item Value Reference Range Interpretation [...] (to prevent recurrent infar ct). THROMBOPLASTIN TIME [id number] 08:06:00 Test Item Value Reference Range Interpretation Comments THROMBOPLASTIN TIME 44.5 Seconds 25.0-39.5 H Therape utic Range: PARTIAL (test code = 50.4 - 88.3 Seconds PTT) Effective 09/04/2018 CBC W/AUTO [id number] 07:58:00 Test Item Value Reference Range Interpretation [...] NO = MDIFF) - XR CHEST 1 [id number] 07:57:00 [facility] : 1960 Sex: M FAX: Todd Jacobo MD [phone] [place]: St: REG FAX: Martínez Dash NP [phone] Name: FAITH VANCE [facility] : 1960 Age/S: 60/M [address] [place] [address] Bl Unit #: [id number] Loc: [place] [address] Phys: Martínez Dash NP Acct: [id number] Dis Date: Status: REG ER PHONE #: [phone] Exam Date: 08/10/2020 [facility] FAX #: [phone] Reason: Chest Pain EXAMS: CPT CODE: [id number] XR CHEST 1 V 29310 Chest single view 08/10/2020 HISTORY: Chest pain. Comparison is made to 05/21/2018 FINDINGS: Pacemaker and midline sternotomy wires are stable. The lungs are hypoinflated. No consolidation or pleural effusion is present. No vascular congestion or interstitial edema is present. Heart size is mildly enlarged. Aorta is unchanged. IMPRESSION: Hypoinflated lungs. No acute cardiopulmonary process. SL: [id number] at 0757 Reported and signed by: Khai Kruse M.D. CC: Todd Jacobo MD; Martínez Dash NP Technologist: RT Ann(R) Trnscrd Date/Time/By: 08/10/2020 (0757) : By: [email or web address] Orig Print D/T: S: 08/10/2020 (0800) PAGE 1 Signed Report COMPREHENSIVE METABOLIC [id number] 18:02:00 Test Item Value Reference Range Interpretation [...] 50-136 H TOTAL (test code = ALKP) [id number] 18:02:00 Test Item Value Reference Range Interpretation Comments AMYLASE (test code = SERGIO) 82 Unit/L 25-115 N [id number] 18:02:00 Test Item Value Reference Range Interpretation Comments LIPASE (test code = LIP) 185 Unit/L 114-286 N COMPREHENSIVE METABOLIC [id number] 17:56:00 Test Item Value Reference Range Interpretation [...] TOTAL Unit/L 50-136 (test code = ALKP) [id number] 17:56:00 Test Item Value Reference Range Interpretation Comments AMYLASE (test code = SERGIO) Unit/L 25-115 [id number] 17:56:00 Test Item Value Reference Range Interpretation Comments LIPASE (test code = LIP) 185 Unit/L 114-286 N CBC W/AUTO [id number] 17:46:00 Test Item Value Reference Range Interpretation [...] CRITERIA MDIFF) - CT ABD PELVIS W/O [id number] 17:46:00 [facility] 1960 Age/S: 58 / M [address] Unit #: [id number] Loc: [place] [address] Phys: Nila Chester MD Acct: [id number] Dis Date: Status: REG ER PHONE #: [phone] Exam Date: 01/03/2019 1730 FAX #: Reason: llq EXAMS: CPT: [id number] CT ABD PELVIS W/O CONT 82946 Location of dictation: B2 CT abdomen and [...] [place] : 1960 Age/S: 58 / M [address] [address] Unit #: [id number] Loc: [place] [address] Phys: Nila Chester MD Acct: [id number] Dis Date: Status: REG ER PHONE #: [phone] Exam Date: 01/03/2019 1730 FAX #: Reason: llq EXAMS: CPT: [id number] CT ABD PELVIS W/O CONT 93223 <Continued> ElectronicallySigned by Maria Eugenia Willett on 01/03/2019 at 1746 Reported and signed by: Renuka Willett M.D. CC: Nila Chester MD Technologist:Tavon Jurado, RT(R)(CT)(MRI) CTDI: DLP: Trnscb Date/Time: 01/03/2019 (0262) [email or web address] Orig Print D/T: S: 01/03/2019 (8396) PAGE 2 Signed ReportBedside [id number] 11:47:00 Test Item Value Reference Range Interpretation Comments Bedside Glucose (test code = 43903-2) 155 70-120 H Meter ID: [id number] [facility] Campusodium [id number] 08:31:00 Test Item Value Reference Range Interpretation Comments Sodium Level (test code = 2951-2) 139 136-145 [facility] Drwqd8379-56-08 08:31:00 Test Item Value Reference Range Interpretation Comments Potassium Level (test code = 2823-3) 4.0 3.5-5.1 [facility]Chloride Qskyb2336-26-66 08:31:00 Test Item Value Reference Range Interpretation Comments Chloride Level (test code = 2075-0) 106 98-107 [facility]Carbon Dioxide Spqik5549-10-52 08:31:00 Test Item Value Reference Range Interpretation Comments Carbon Dioxide Level (test code = -8-9) [facility]HealthAnion [id number] 08:31:00 Test Item Value Reference Range Interpretation Comments Anion Gap (test code = 67887-7) 12.0 8-16 [facility]Blood Urea Dbtgtjzw8435-21-79 08:31:00 Test Item Value Reference Range Interpretation Comments Blood Urea Nitrogen (test code = 12-14 3094-0) [facility]Creatinine2018-06-08 08:31:00 Test Item Value Reference Range Interpretation Comments Creatinine (test code = 2160-0) 0.72 0.72-1.25 [facility]HealthBUN/Creatinine Hqopb4226-29-35 08:31:00 Test Item Value Reference Range Interpretation Comments BUN/Creatinine Ratio (test code = 10 6 3097-3) [facility]HealthEstimat Glomerular Filtration Vnlo8248-09-22 08:31:00 Test Item Value Reference Range Interpretation Comments Estimat Glomerular Filtration Rate 60- >60 (test code = 91980-9) Ranges were taken from the National Kidney Disease Education Program and the National Kidney Foundation literature.Reference ranges:60 or greater: Dmndqh05- 59 (for 3 consecutive months): Chronic kidneydisease 15 or less: Kidney failure [facility]HealthGlucose Oqaob5389-49-31 08:31:00 Test Item Value Reference Range Interpretation Comments Glucose Level (test code = VGQ9918) 195 74-118 H [facility]HealthCalcium Jvari2351-40-20 08:31:00 Test Item Value Reference Range Interpretation Comments Calcium Level (test code = 40461-4) 9.0 8.4-10.2 [facility]White Blood Kdnmm0996-87-71 08:12:00 Test Item Value Reference Range Interpretation Comments White Blood Count (test code = 6690-2) 6.06 4.8-10.8 [facility]Red Blood Kznyx9782-27-32 08:12:00 Test Item Value Reference Range Interpretation Comments Red Blood Count (test code = 789-8) 4.22 4.3-5.7 L [facility]HealthHemoglobin2018-06-08 08:12:00 Test Item Value Reference Range Interpretation Comments Hemoglobin (test code = 00213-3) 12.5 14.0-18.0 L [facility]Hematocrit2018-06-08 08:12:00 Test Item Value Reference Range Interpretation Comments Hematocrit (test code = 4544-3) 36.2 38.2-49.6 L [facility]HealthMean Corpuscular Bdsmyv2931-44-48 08:12:00 Test Item Value Reference Range Interpretation Comments Mean Corpuscular Volume (test code = 85.8 81-99 787-2) [facility] Corpuscular Jfsplbsxoy4022-87-92 08:12:00 Test Item Value Reference Range Interpretation Comments Mean Corpuscular Hemoglobin (test code 29.6 28-32 = 785-6) [facility]Mean Corpuscular Hemoglobin Xjztcmk5124-08-81 08:12:00 Test Item Value Reference Range Interpretation Comments Mean Corpuscular Hemoglobin Concent 34.5 31-35 (test code = 786-4) [facility]HealthRed Cell Distribution Sersb8692-41-19 08:12:00 Test Item Value Reference Range Interpretation Comments Red Cell Distribution Width (test code 14.2 11.7-14.4 = 20992-3) [facility]HealthPlatelet Vymev9000-52-05 08:12:00 Test Item Value Reference Range Interpretation Comments Platelet Count (test code = 777-3) 263 140-360 [facility]Neutrophils (%) (Auto)2017-10-27 08:12:00 Test Item Value Reference Range Interpretation Comments Neutrophils (%) (Auto) (test code = 51.2 38.7-80.0 82833-5) [facility]Lymphocytes (%) (Auto)2017-10-27 08:12:00 Test Item Value Reference Range Interpretation Comments Lymphocytes (%) (Auto) (test code = 33.7 18.0-39.1 736-9) [facility]Monocytes (%) (Auto)2017-10-27 08:12:00 Test Item Value Reference Range Interpretation Comments Monocytes (%) (Auto) (test code = 9.1 4.4-11.3 5905-5) [facility]Eosinophils (%) (Auto)2017-10-27 08:12:00 Test Item Value Reference Range Interpretation Comments Eosinophils (%) (Auto) (test code = 4.8 0.0-6.0 713-8) [facility]Basophils (%) (Auto)2017-10-27 08:12:00 Test Item Value Reference Range Interpretation Comments Basophils (%) (Auto) (test code = 0.7 0.0-1.0 706-2) [facility]HealthIM GRANULOCYTES %2017-10-27 08:12:00 Test Item Value Reference Range Interpretation Comments IM GRANULOCYTES % (test code = IM 0.5 0.0-1.0 GRANULOCYTES %) [facility]Neutrophils # (Auto)2017-10-27 08:12:00 Test Item Value Reference Range Interpretation Comments Neutrophils # (Auto) (test code = 3.1 2.1-6.9 751-8) [facility]Lymphocytes # (Auto)2017-10-27 08:12:00 Test Item Value Reference Range Interpretation Comments Lymphocytes # (Auto) (test code = 2.0 1.0-3.2 53350-2) [facility]Monocytes # (Auto)2017-10-27 08:12:00 Test Item Value Reference Range Interpretation Comments Monocytes # (Auto) (test code = 742-7) 0.6 0.2-0.8 [facility]Eosinophils # (Auto)2017-10-27 08:12:00 Test Item Value Reference Range Interpretation Comments Eosinophils # (Auto) (test code = 0.3 0.0-0.4 711-2) [facility]Basophils # (Auto)2017-10-27 08:12:00 Test Item Value Reference Range Interpretation Comments Basophils # (Auto) (test code = 704-7) 0.0 0.0-0.1 [facility]HealthAbsolute Immature Granulocyte (qonv4634-85-76 08:12:00 Test Item Value Reference Range Interpretation Comments Absolute Immature Granulocyte (auto 0.03 0-0.1 (test code = Absolute Immature Granulocyte (auto) [facility]HealthCreatine Kinase [id number] 15:14:00 Test Item Value Reference Range Interpretation Comments Creatine Kinase MB (test code = 3.90 0-5.0 47290-3) [facility]HealthTroponin E6034-46-13 15:14:00 Test Item Value Reference Range Interpretation Comments Troponin I (test code = XWW4090) 0.054 0-0.300 [facility]HealthCreatine Saytya1801-54-20 15:07:00 Test Item Value Reference Range Interpretation Comments Creatine Kinase (test code = 2157-6) 297 30-200 H [facility]HealthHemoglobin A1c Asdwuxl7042-40-83 08:04:00 Test Item Value Reference Range Interpretation Comments Hemoglobin A1c Percent (test code = 12.6 4.0-7.0 H Hemoglobin A1c Percent) [facility]HealthTriglycerides Mqziq4391-79-62 06:57:00 Test Item Value Reference Range Interpretation Comments Triglycerides Level (test code = 200 0-149 H 2571-8) [facility]Cholesterol Yyeby8054-19-80 06:57:00 Test Item Value Reference Range Interpretation Comments Cholesterol Level (test code = 2093-3) 239 0-199 H Less than 200 mg/dL Low Qpum755 - 239 mg/dL Borderline Puxk855 mg/dl and greater High RiskAdventHealthLDL Qfzdedluqkd1480-54-93 06:57:00 Test Item Value Reference Range Interpretation Comments LDL Cholesterol (test code = 2089-1) 164 60-130 H [facility]HealthHDL Sjvyrtwvwws1284-24-37 06:57:00 Test Item Value Reference Range Interpretation Comments HDL Cholesterol (test code = 2085-9) 35 40-60 L [facility]HealthCholesterol/HDL Zanic0941-43-41 06:57:00 Test Item Value Reference Range Interpretation Comments Cholesterol/HDL Ratio (test code = 6.8 3.9-4.7 H 9830-1) [facility]HealthUrine Opiates Bkzkpg4581-24-10 16:18:00 Test Item Value Reference Range Interpretation Comments Urine Opiates Screen (test code = NEGATIVE NEGATIVE 99522-7) [facility]HealthUrine Barbiturates Bycvka2946-90-86 16:18:00 Test Item Value Reference Range Interpretation Comments Urine Barbiturates Screen (test code NEGATIVE NEGATIVE = 835977315) [facility]HealthUrine Phencyclidine Vizvhi3953-41-56 16:18:00 Test Item Value Reference Range Interpretation Comments Urine Phencyclidine Screen (test NEGATIVE NEGATIVE code = 43666-6) [facility]HealthUrine Amphetamines Jbuwez5207-72-72 16:18:00 Test Item Value Reference Range Interpretation Comments Urine Amphetamines Screen (test code NEGATIVE NEGATIVE = 44508-5) [facility]HealthUrine Methamphetamines Zgtsgv6994-68-23 16:18:00 Test Item Value Reference Range Interpretation Comments Urine Methamphetamines Screen (test NEGATIVE NEGATIVE code = Urine Methamphetamines Screen) [facility]HealthUrine Benzodiazepines Oxvjzj4925-59-28 16:18:00 Test Item Value Reference Range Interpretation Comments Urine Benzodiazepines Screen (test NEGATIVE NEGATIVE code = 56756-5) [facility]HealthUrine Cocaine Epouad5321-17-12 16:18:00 Test Item Value Reference Range Interpretation Comments Urine Cocaine Screen (test code = NEGATIVE NEGATIVE 3398-5) [facility]HealthUrine Cannabinoids Yaoaal1212-48-08 16:18:00 Test Item Value Reference Range Interpretation Comments Urine Cannabinoids Screen (test code NEGATIVE NEGATIVE = 27486-4) THESE RESULTS ARE FOR MEDICAL TREATMENT ONLYTHIS REPORT CONTAINS UNCONFIRMED SCREENING RESULTS*POSITIVE RESULTS WILL BE CONFIRMED BY REFERENCE LAB UPON REQUEST CUT-OFFDRUG CLASS CONCENTRATION ng/mLAmphetamines 1000Methamphetamines 1000Cocaine 300Opiate 300Phencyclidine 25Cannabinoid 50Barbiturates 300Benzodiazepine 300Methadone 300[facility]one Fbugzs2193-52-26 16:18:00 Test Item Value Reference Range Interpretation Comments Urine Methadone Screen (test code = NEGATIVE NEGATIVE 74930-4) THESE RESULTS ARE FOR MEDICAL TREATMENT ONLYTHIS REPORT CONTAINS UNCONFIRMED SCREENING RESULTS*POSITIVE RESULTS WILL BE CONFIRMED BY REFERENCE LAB UPON REQUEST CUT-OFFDRUG CLASS CONCENTRATION ng/mLAmphetamines 1000Methamphetamines 1000Cocaine Metabolite 300Opiate 300Phencyclidine 62Nffnggjuwmj23Gnrgyxntzarv 300Benzodiazepine 300Methadone 300[facility] HospitalProth[facility]bin Ygmk5057-99-95 14:13:00 Test Item Value Reference Range Interpretation Comments Prothrombin Time (test code = 5902-2) 13.6 11.9-14.5 [facility]HealthProthromb Time International Goqkf7052-60-13 14:13:00 Test Item Value Reference Range Interpretation Comments Prothromb Time International Ratio 1.13 (test code = 6301-6) Oral Anticoagulant Therapy INR Values:1. Low Intensity Therapy 1.5 - 2.02. Moderate Intensity Therapy 2.0 - 3.03. High Intensity Therapy(1) 2.5 - 3.54. High Intensity Therapy(2) 3.0 - 4.05. Panic ValueINR > 5.0Ad[facility]HealthActivated Partial Thromboplast Rida0768-96-73 14:13:00 Test Item Value Reference Range Interpretation Comments Activated Partial Thromboplast Time 27.6 23.8-35.5 (test code = 49661-7) [facility]HealthTotal Adeiliihy5161-41-79 14:10:00 Test Item Value Reference Range Interpretation Comments Total Bilirubin (test code = 1975-2) 0.6 0.2-1.2 [facility]HealthAspartate Amino Transf (AST/SGOT)2017-10-23 14:10:00 Test Item Value Reference Range Interpretation Comments Aspartate Amino Transf (AST/SGOT) (test 36 5-34 H code = Aspartate Amino Transf (AST/SGOT)) [facility]HealthAlanine Aminotransferase (ALT/SGPT)2017-10-23 14:10:00 Test Item Value Reference Range Interpretation Comments Alanine Aminotransferase (ALT/SGPT) 34 0-55 (test code = 1742-6) [facility]HealthTotal Nbwadak8711-19-91 14:10:00 Test Item Value Reference Range Interpretation Comments Total Protein (test code = 2885-2) 7.3 6.5-8.1 [facility]HealthAlbumin2018-06-04 14:10:00 Test Item Value Reference Range Interpretation Comments Albumin (test code = 1751-7) 4.0 3.5-5.0 [facility]HealthGlobulin2018-06-04 14:10:00 Test Item Value Reference Range Interpretation Comments Globulin (test code = 24013-3) 3.3 2.3-3.5 [facility]HealthAlbumin/Globulin Dtoez3339-34-28 14:10:00 Test Item Value Reference Range Interpretation Comments Albumin/Globulin Ratio (test code = 1.2 0.8-2.0 1759-0) [facility]HealthAlkaline Hivtoaernpp8623-65-65 14:10:00 Test Item Value Reference Range Interpretation Comments Alkaline Phosphatase (test code = 109 40-150 6768-6) [facility]HealthB-Type Natriuretic Nppphbl8916-65-59 14:10:00 Test Item Value Reference Range Interpretation Comments B-Type Natriuretic Peptide (test code = 92.8 0-100 81953-1) [facility]HealthAmylase Drbrl6886-97-10 14:10:00 Test Item Value Reference Range Interpretation Comments Amylase Level (test code = 1798-8) 126 25-125 H [facility]HealthLipase2018-06-04 14:10:00 Test Item Value Reference Range Interpretation Comments Lipase (test code = 3040-3) 98 8-78 H [facility]HealthD-Dimer Quantitative (PE/DVT)2017-10-23 14:02:00 Test Item Value Reference Range Interpretation Comments D-Dimer Quantitative (PE/DVT) (test 0.49 0.00-0.45 H code = 14073-2) [facility]Direct Plmbydhko2377-90-80 13:47:00 Test Item Value Reference Range Interpretation Comments Direct Bilirubin (test code = 63266-9) 0.2 0.0-5.0 [facility]HealthMagnesium Pocwk8574-75-53 06:52:00 Test Item Value Reference Range Interpretation Comments Magnesium Level (test code = 04387-2) 1.5 1.3-2.1 [facility]HealthUrine IEF9509-99-36 05:09:00 Test Item Value Reference Range Interpretation Comments Urine WBC (test code = 5821-4) NONE 0-5 [facility]Urine THD6871-16-49 05:09:00 Test Item Value Reference Range Interpretation Comments Urine RBC (test code = 56108-6) NONE 0-5 [facility]Urine Twzuwctp7894-62-48 05:09:00 Test Item Value Reference Range Interpretation Comments Urine Bacteria (test code = 36777-3) NONE NONE [facility]HealthUrine Epithelial Lnhaw3699-82-87 05:09:00 Test Item Value Reference Range Interpretation Comments Urine Epithelial Cells (test code = NONE NONE 74216-5) [facility]HealthUrine Leukocyte Ymondcib1508-99-29 04:46:00 Test Item Value Reference Range Interpretation Comments Urine Leukocyte Esterase (test code NEGATIVE NEGATIVE = 5799-2) [facility]Urine Sagfnls5900-56-34 04:46:00 Test Item Value Reference Range Interpretation Comments Urine Nitrite (test code = 21766-8) NEGATIVE NEGATIVE [facility]Urine Ugjprjj8579-56-59 04:46:00 Test Item Value Reference Range Interpretation Comments Urine Protein (test code = 5804-0) NEGATIVE NEGATIVE [facility]HealthUrine Glucose (UA)2017-03-05 04:46:00 Test Item Value Reference Range Interpretation Comments Urine Glucose (UA) (test code = NEGATIVE NEGATIVE 2349-9) [facility]HealthUrine Uhssdpg1973-05-49 04:46:00 Test Item Value Reference Range Interpretation Comments Urine Ketones (test code = 25343-1) NEGATIVE NEGATIVE [facility]HealthUrine Ttaidmoefxgo8164-73-06 04:46:00 Test Item Value Reference Range Interpretation Comments Urine Urobilinogen (test code = 0.2 0.2-1 32078-1) [facility]Urine Zppbzcheh1413-82-97 04:46:00 Test Item Value Reference Range Interpretation Comments Urine Bilirubin (test code = 1978-6) NEGATIVE NEGATIVE [facility]Urine Yweud3838-34-19 04:46:00 Test Item Value Reference Range Interpretation Comments Urine Blood (test code = 19858-2) 2+ NEGATIVE H [facility]HealthUrine Srzyf5282-87-14 04:46:00 Test Item Value Reference Range Interpretation Comments Urine Color (test code = 5778-6) YELLOW YELLOW [id number] 04:46:00 Test Item Value Reference Range Interpretation Comments Urine Clarity (test code = 65561-9) CLEAR CLEAR [facility] [id number] 04:46:00 Test Item Value Reference Range Interpretation Comments Urine Specific [place] (test code = 1.010 1.010-1.025 5811-5) [facility] [id number] 04:46:00 Test Item Value Reference Range Interpretation Comments Urine pH (test code = 29556-1) 8 5-7 H [facility] [address] [place] [address] PatientName: FAITH VANCE MR #: [id number] : 1960 Age/Sex: 57/M [facility] #: [id number] Req #: [id number] [facility] Physician: ALEXIS COX MD Ordered by: ALEXIS COX MD Report #: [id number] Location: [facility] Room/Bed: [place] [address] Procedure: [id number] CT/CTA BRAIN Exam Date: 10/24/17 Exam Time: [...] COPY TO: ALEXIS COX MDCT BRAIN WO [place] [address] PatientName: FAITH VANCE MR #: [id number] : 1960 Age/Sex: 57/M Req #: [id number] Adm Physician: Ordered by: KHAI WAHL MD Report #: [id number] Location: ER Room/Bed: __ Procedure: [id number] CT/CT BRAIN WO Exam Date: 10/23/17 Exam [...] COPY TO: KHAI WAHL V MDCTA CHEST [place] [address] PatientName: FAITH VANCE MR #: [id number] : 1960 Age/Sex: 57/M Req #: [id number] Adm Physician: Ordered by: KHAI WAHL MD Report #: [id number] Location: ER Room/Bed: __ Procedure: [id number] CT/CTA CHEST Exam Date: 10/23/17 Exam Time: [...] reviewed and is below limits set by [facility]). FINDINGS: Lines and Tubes: Pacemaker [...] 10/23/17 1621 COPY TO: KHAI WAHL V [facility] SINGLE (PORTABLE) [place] [address] PatientName: FAITH VANCE MR #: [id number] : 1960 Age/Sex: 57/M Req #: [id number] Adm Physician: Ordered by: KHAI WAHL MD Report #: [id number] Location: ER Room/Bed: __ Procedure: [id number] DX/CHEST SINGLE (PORTABLE) Exam Date: 10/23/17 Exam [...] TO: KHAI WAHL V MDCT BRAIN WO [place] [address] PatientName: FAITH VANCE MR #: [id number] : 1960 Age/Sex: 56/M Req #: [id number] Adm Physician: Ordered by: JACQUELYN MONTES DE OCA MD Report #: [id number] Location: ER Room/Bed: Procedure: [id number] CT/CT BRAIN WO Exam Date: Exam Time: [...] MONTES DE OCA MDCT CERVICAL SPINE WO [place] [address] PatientName: FAITH VANCE MR #: [id number] : 1960 Age/Sex: 56/M Req #: [id number] Adm Physician: Ordered by: JACQUELYN MONTES DE OCA MD Report #: [id number] Location: ER Room/Bed: Procedure: [id number] CT/CT CERVICAL SPINE WO Exam Date: Exam [...] 6 COPY TO: JACQUELYN MONTES [facility] [place] [address] PatientName: FAITH VANCE MR #: [id number] : 1960 Age/Sex: 56/M Req #: [id number] Adm Physician: Ordered by: JACQUELYN MONTES DE OCA MD Report #: [id number] Location: ER Room/Bed: Procedure: [id number] DX/CHEST SINGLE (PORTABLE) Exam Date: 04/04/17 Exam [...] OCA MDHIP RIGHT 2-3 VW (+/- PELVIS) [place] [address] PatientName: FAITH VANCE MR #: [id number] : 1960 Age/Sex: 56/M Req #: [id number] Adm Physician: Ordered by: JACQUELYN MONTES DE OCA MD Report #: [id number] Location: ER Room/Bed: Procedure: [id number] DX/HIP RIGHT 2-3 VW (+/- PELVIS) Exam [...] DE OCA MDSP LUMBAR, COMPLETE MIN 4VW [place] [id number] [place] [address] PatientName: FAITH VANCE MR #: [id number] : 1960 Age/Sex: 56/M Req #: [id number] Adm Physician: Ordered by: JACQUELYN MONTES DE OCA MD Report #: [id number] Location: ER Room/Bed: Procedure: [id number] DX/SP LUMBAR, COMPLETE MIN 4VW Exam Date: 04/04/17 Exam Time: 0108 REPORT STATUS: Signed SP LUMBAR, COMPLETE MIN 4VW Comparison: CT 08/10/2016 Clinical history: Status post fall with lowerback pain Findings: Postoperative changes from posterior fusion from left L4 vertebral body to L5-T4udzipo and posterior decompression. No evidence of hardware [...] JACQUELYN MONTES DE OCA MDUS ABDOMEN COMPLETE [place] [address] PatientName: FAITH VANCE MR #: [id number] : 1960 Age/Sex: 56/M Req #: [id number] [facility] Physician: NICHELLE PALACIOS MD Ordered by: SCOTT AMIN MD Report #: [id number] Location: [facility] Room/Bed: [place] [address] Procedure: [id number] US/US ABDOMEN COMPLETE Exam Date: 03/08/17 Exam [...] By: ANIBAL on 03/08/171039 [facility] [place] [address] PatientName: FAITH VANCE MR #: [id number] : 1960 Age/Sex: 56/M Req #: [id number] Adm Physician: Ordered by: JACQUELYN MONTES DE OCA MD Report #: [id number] Location: ER Room/Bed: Procedure: [id number] DX/CHEST SINGLE (PORTABLE) Exam Date: 03/05/17 Exam [...]
[2022-01-13 15:40] LABS: Absolute Lymphocytes (CBC) 1.5 K/uL (0.7-4.9); Hematocrit 31.7 % (39.6-49.0); Lymphocytes % 18.9 % (15.3-44.8); MCV 88.2 fL (80-100); MPV 7.2 fL (7.6-11.3)
[2022-01-13] MEDS ORDERED: MORPHINE 4 MG/ML SYR ONE ×3 (15:49→22:58)
[2022-01-13] MEDS ORDERED: ONDANSETRON 4 MG/2 ML VIAL ONE ×2 (15:50→23:38)
[2022-01-13 15:58] LABS: Potassium 4.3 mmol/L (3.5-5.1); Troponin High Sensitivity 25.5 pg/mL (<58.9)
--- NOTE | 2022-01-13 16:37 | RAD REPORT ---
EXAM DESCRIPTION: Adrián Single View01/13/2022 3:58 pm CLINICAL HISTORY: Chest pain COMPARISON: January 08, 2022 FINDINGS: Mild bilateral pulmonary opacities. The heart is mildly enlarged. Postsurgical changes involve chest. Pacemaker leads in place IMPRESSION: These findings probably indicate mild CHF
--- NOTE | 2022-01-13 17:05 | EDPHYS ---
Physician Documentation [facility] Name: Ernie Rooney Age: 61 yrs Sex: Male : 1960 Arrival Date: 01/13/2022 Time: 15:03 Bed 18 Private MD: ED Physician Regan Hoff HPI: 01/13 15:11 This 61 yrs old Male presents to ER via EMS with complaints of Chest pain. ms3 15:11 The patient or guardian reports chest pain that is located primarily in the substernal ms3 area. Onset: acutely, 1 hour(s) ago. The pain does not radiate. Associated signs and symptoms: Pertinent positives: nausea. The chest pain is described as a pressure. Duration: The patient or guardian reports a single episode, that is still ongoing. Modifying factors: The symptoms are alleviated by nothing. the symptoms are aggravated by nothing. Severity of pain: At its worst the pain was severe in the emergency department the pain is unchanged is a 9 / 10. EMS care prior to arrival includes: aspirin, saline lock. Historical: - Allergies: 16:49 NKA; tw2 - Home Meds: 16:49 albuterol sulfate 90 mcg/actuation Inhl aepb [Active]; apixaban 5 mg Oral tab 1 tab 2 tw2 times per day [Active]; aspirin 81 mg Oral TbEC [Active]; atorvastatin 40 mg Oral tab 1 tab once daily [Active]; cyclobenzaprine 10 mg Oral tab 1 tab as needed [Active]; fenofibrate micronized 200 mg Oral Tb24 1 cap once daily [Active]; furosemide 40 mg Oral tab 1 tab once daily [Active]; gabapentin 800 mg Oral tab 1 tab 3 times per day [Active]; glipizide 10 mg Oral tab 1 tab once daily [Active]; Humulin N Pen 100 unit/mL (3 mL) Sub-Q inpn [Active]; levothyroxine 50 mcg Tb24 1 cap once daily [Active]; lisinopril 2.5 mg Oral tab 1 tab once daily [Active]; metformin 500 mg Oral tab 1 tab daily [Active]; omeprazole 20 mg Oral cpDR 1 cap once daily [Active]; spironolactone 25 mg Oral tab 1 tab once daily [Active]; tamsulosin 0.4 mg Oral Tb24 1 cap once daily [Active]; venlafaxine 75 mg Oral tab 1 tab 2 times per day [Active]; - PMHx: 16:49 Arthritis; Back pain; CVA; Diabetes - NIDDM; Fibromyalgia; Hypertension; GERD; tw2 Hypertensive disorder; Hypothyroidism; Left sided weakness from previous CVA; Myocardial infarction; Pacemaker; Hyperlipidemia; High Cholesterol; Depression; - PSHx: 16:49 bilat BKA's; bypass; CABG; tw2 - Immunization history:: Adult Immunizations. - Social history:: Smoking status: . ROS: 15:11 Constitutional: Negative for fever, and chills. Neck: Negative for injury, pain, and ms3 swelling. 15:11 Respiratory: Negative for shortness of breath, cough, wheezing, and pleuritic chest pain. 15:11 MS/Extremity: Negative for injury and deformity, Skin: Negative for injury, rash, and discoloration, Neuro: Negative for headache, weakness, numbness, tingling. 15:11 Cardiovascular: Positive for chest pain. 15:11 Abdomen/GI: Positive for nausea, Negative for vomiting. 15:11 All other systems are negative. Exam: 15:11 Constitutional: This is a well developed, well nourished patient who is awake, alert, ms3 and in no acute distress. Head/Face: Normocephalic, atraumatic. Neck: Trachea midline, no cervical lymphadenopathy. Supple, full range of motion without nuchal rigidity, or vertebral point tenderness. No Meningismus. Chest/axilla: Normal chest wall appearance and motion. Nontender with no deformity. Cardiovascular: Regular rate and rhythm with a normal S1 and S2. No gallops, murmurs, or rubs. Normal PMI, no JVD. No pulse deficits. Respiratory: Lungs have equal breath sounds bilaterally, clear to auscultation and percussion. No rales, rhonchi or wheezes noted. No increased work of breathing, no retractions or nasal flaring. Abdomen/GI: Soft, non-tender, with normal bowel sounds. No distension or tympany. No guarding or rebound. No evidence of tenderness throughout. Skin: Warm, dry with normal turgor. Normal color with no rashes, no lesions, and no evidence of cellulitis. Psych: Awake, alert, with orientation to person, place and time. Behavior, mood, and affect are within normal limits. 15:11 Musculoskeletal/extremity: Bilateral BKA. 15:50 ECG was reviewed by the Attending Physician. ms3 Vital Signs: 15:27 BP 134 / 87; Pulse 88; Resp 17; Temp 98.3(O); Pulse Ox 100% on R/A; Weight 71.21 kg tw2 (R); Pain 9/10; 16:48 BP 132 / 81; Pulse 92; Resp 17; Pulse Ox 99% on R/A; tw2 17:47 BP 118 / 69; Pulse 82; Resp 17; Pulse Ox 100% on 2 lpm NC; Pain 8/10; tw2 18:44 BP 119 / 73; Pulse 79; Resp 17; Pulse Ox 100% on 2 lpm NC; tw2 19:00 BP 109 / 64; Pulse 79; Resp 16; Pulse Ox 100% on R/A; jb4 20:30 BP 110 / 68; Pulse 76; Resp 18; Pulse Ox 100% on R/A; jb4 21:30 BP 118 / 76; Pulse 75; Resp 16; Pulse Ox 99% on R/A; jb4 17:47 provider notified of pain returning and pts request for pain medicine at this time. tw2 MDM: 15:04 Patient medically screened. ms3 15:11 Differential diagnosis: abnormal EKG, acute myocardial infarction, coronary artery ms3 disease pneumonia. 18:46 HEART Score: History: Slightly Suspicious (0), ECG: Non specific repolarization ms3 disturbance / LBTB / PM (1), Age: > 45 and < 65 years (1), Risk Factors: > or = 3 Risk factors for atherosclerotic disease (2), Troponin: < or = 1 x Normal Limit (0), Total Score = 4. The patient was not given aspirin in the Emergency Department. Administered by EMS. Data reviewed: vital signs, nurses notes, lab test result(s), EKG, radiologic studies, and as a result, I will admit patient. Counseling: I had a detailed discussion with the patient and/or guardian regarding: the historical points, exam findings, and any diagnostic results supporting the discharge/admit diagnosis, lab results, radiology results, the need for further work-up and treatment in the hospital. 18:46 ED course: Discussed case with Dr Rios and he accepts patient as observation. All ms3 questions answered. Patient remains in stable condition.. 01/13 15:10 Order name: Basic Metabolic Panel; Complete Time: 16:55 ms3 01/13 15:10 Order name: CBC with Diff; Complete Time: 16:55 ms3 01/13 15:10 Order name: NT PRO-BNP; Complete Time: 16:55 ms3 01/13 15:10 Order name: Troponin HS; Complete Time: 16:55 ms3 01/13 18:37 Order name: SARS RAPID; Complete Time: 19:22 em1 01/13 21:57 Order name: Glucose, Ancillary Testing; Complete Time: 22:12 EDMS 01/13 15:10 Order name: XRAY Chest (1 view); Complete Time: 16:55 ms3 01/13 22:20 Order name: Troponin High Sensitivity; Complete Time: 22:22 EDMS 01/13 22:20 Order name: Lipid Profile; Complete Time: 22:22 EDMS 01/14 02:20 Order name: CBC with Automated Diff; Complete Time: 02:20 EDMS 01/14 02:29 Order name: Basic Metabolic Panel; Complete Time: 02:29 EDMS 01/14 02:36 Order name: Troponin High Sensitivity; Complete Time: 02:37 EDMS 01/14 07:42 Order name: Glucose, Ancillary Testing EDMS 01/14 11:48 Order name: Glucose, Ancillary Testing EDMS 01/13 15:10 Order name: EKG; Complete Time: 15:11 ms3 01/13 15:10 Order name: Cardiac monitoring; Complete Time: 15:39 ms3 01/13 15:10 Order name: EKG - Nurse/Tech; Complete Time: 15:49 ms3 01/13 15:10 Order name: IV Saline Lock; Complete Time: 15:39 ms3 01/13 15:10 Order name: Labs collected and sent; Complete Time: 15:39 ms3 01/13 15:10 Order name: O2 Per Protocol; Complete Time: 15:39 ms3 01/13 15:10 Order name: O2 Sat Monitoring; Complete Time: 15:39 ms3 EC:50 Rate is 84 beats/min. Rhythm is regular. QRS interval is prolonged. Clinical ms3 impression: Paced. Interpreted by me. Reviewed by me. Administered Medications: 14:40 Drug: Zofran (Ondansetron) 4 mg Route: IVP; Site: left forearm; tw2 17:50 Follow up: Response: No adverse reaction tw2 14:42 Drug: morphine 4 mg {Note: rass 0.} Route: IVP; Infused Over: 4 mins; Site: left tw2 forearm; 15:00 Follow up: Response: No adverse reaction; Pain is decreased; RASS: Alert and Calm (0) tw2 17:53 Drug: morphine 4 mg {Note: RASS 0.} Route: IVP; Infused Over: 4 mins; Site: left tw2 forearm; 18:44 Follow up: Response: No adverse reaction; Pain is decreased; RASS: Alert and Calm (0) tw2 Disposition Summary: 01/13/22 17:04 Hospitalization Ordered Hospitalization Status: Observation ms3 Provider: Alf Rios ms3 Condition: Stable ms3 Problem: new ms3 Symptoms: are unchanged ms3 Bed/Room Type: Standard ms3 Location: Telemetry/MedSurg (observation)(01/14/22 10:22) Room Assignment: [facility](01/14/22 10:22) Diagnosis - Chest pain, unspecified ms3 - Diabetes Mellitus ms3 - Congestive heart failure ms3 Forms: - Medication Reconciliation Form ms3 - SBAR form ms3 Signatures: Dispatcher [employer] Rhonda Rousseau RN RN dw Lary Cannon RN RN tw2 Regan Hoff DO DO ms3 Makayla Moreno PA PA sb3 Corrections: (The following items were deleted from the chart) 19:12 17:04 Telemetry/MedSurg (observation) ms3 19:12 17:04 ms3 dw 01/14 10:01/13 19:12 [facility] ER HOLD dw dw 01/14 10:01/13 19:12 ERHOLD- dw dw
--- NOTE | 2022-01-13 17:05 | ER ---
Nurse's Notes [facility] Name: Ernie Rooney Age: 61 yrs Sex: Male : 1960 Arrival Date: 01/13/2022 Time: 15:03 Bed 18 Private MD: Diagnosis: Chest pain, unspecified;Diabetes Mellitus;Congestive heart failure Presentation: 01/13 15:27 Chief complaint: EMS states: pt from home c/o chest pain radiates to LEFT arm. given tw2 324 mg ASA. has been without meds for a while. we have been called out to him every 2 or 3 days. he gets meds then he gets better. Coronavirus screen: At this time, the client does not indicate any symptoms associated with coronavirus-19. Ebola Screen: Patient denies travel to an Ebola-affected area in the 21 days before illness onset. Initial Sepsis Screen: Does the patient meet any 2 criteria? No. Patient's initial sepsis screen is negative. Does the patient have a suspected source of infection? No. Patient's initial sepsis screen is negative. Risk Assessment: Do you want to hurt yourself or someone else? Patient reports no desire to harm self or others. Onset of symptoms was January 13, 2022. Care prior to arrival: Medication(s) given: ASA, 324 mg IV initiated. 20 GA, in the left forearm. 15:27 Method Of Arrival: EMS: [facility] tw2 15:27 Acuity: TONE 3 tw2 Triage Assessment: 15:27 General: Appears in no apparent distress. uncomfortable, Behavior is calm, cooperative, tw2 appropriate for age. Pain: Complains of pain in chest Pain radiates to back and left arm. Neuro: Level of Consciousness is awake, alert, obeys commands, Oriented to person, place, time, situation. Cardiovascular: Reports chest pain, shortness of breath. Respiratory: Airway is patent Respiratory effort is even, unlabored, Respiratory pattern is regular, symmetrical. GI: No signs and/or symptoms were reported involving the gastrointestinal system. GI: Abdomen is flat. :. Musculoskeletal: Amputation of Other: b/l BKA noted. Historical: - Allergies: 16:49 NKA; tw2 - Home Meds: 16:49 albuterol sulfate 90 mcg/actuation Inhl aepb [Active]; apixaban 5 mg Oral tab 1 tab 2 tw2 times per day [Active]; aspirin 81 mg Oral TbEC [Active]; atorvastatin 40 mg Oral tab 1 tab once daily [Active]; cyclobenzaprine 10 mg Oral tab 1 tab as needed [Active]; fenofibrate micronized 200 mg Oral Tb24 1 cap once daily [Active]; furosemide 40 mg Oral tab 1 tab once daily [Active]; gabapentin 800 mg Oral tab 1 tab 3 times per day [Active]; glipizide 10 mg Oral tab 1 tab once daily [Active]; Humulin N Pen 100 unit/mL (3 mL) Sub-Q inpn [Active]; levothyroxine 50 mcg Tb24 1 cap once daily [Active]; lisinopril 2.5 mg Oral tab 1 tab once daily [Active]; metformin 500 mg Oral tab 1 tab daily [Active]; omeprazole 20 mg Oral cpDR 1 cap once daily [Active]; spironolactone 25 mg Oral tab 1 tab once daily [Active]; tamsulosin 0.4 mg Oral Tb24 1 cap once daily [Active]; venlafaxine 75 mg Oral tab 1 tab 2 times per day [Active]; - PMHx: 16:49 Arthritis; Back pain; CVA; Diabetes - NIDDM; Fibromyalgia; Hypertension; GERD; tw2 Hypertensive disorder; Hypothyroidism; Left sided weakness from previous CVA; Myocardial infarction; Pacemaker; Hyperlipidemia; High Cholesterol; Depression; - PSHx: 16:49 bilat BKA's; bypass; CABG; tw2 - Immunization history:: Adult Immunizations. - Social history:: Smoking status: . Screenin:48 Abuse screen: Denies threats or abuse. Nutritional screening: No deficits noted. tw2 Tuberculosis screening: No symptoms or risk factors identified. Fall Risk Secondary diagnosis (15 points) impaired mobility, b/l BKA. Assessment: 15:27 Pain: Pain radiates to back and left arm Pain began 1 hour ago. Cardiovascular: Reports tw2 chest pain, shortness of breath, "short of breath when the pain hits". 16:48 Reassessment: Patient appears in no apparent distress at this time. Patient and/or tw2 family updated on plan of care and expected duration. Pain level reassessed. Patient is alert, oriented x 3, equal unlabored respirations, skin warm/dry/pink. Patient states feeling better. 17:45 Reassessment: Patient appears in no apparent distress at this time. Patient and/or tw2 family updated on plan of care and expected duration. Pain level reassessed. Patient is alert, oriented x 3, equal unlabored respirations, skin warm/dry/pink. 18:44 Reassessment: Patient appears in no apparent distress at this time. Patient and/or tw2 family updated on plan of care and expected duration. Pain level reassessed. Patient is alert, oriented x 3, equal unlabored respirations, skin warm/dry/pink. 19:15 Reassessment: Patient appears in no apparent distress at this time. Patient and/or jb4 family updated on plan of care and expected duration. Pain level reassessed. Patient is alert, oriented x 3, equal unlabored respirations, skin warm/dry/pink. 20:30 Reassessment: Patient appears in no apparent distress at this time. Patient and/or jb4 family updated on plan of care and expected duration. Pain level reassessed. Patient is alert, oriented x 3, equal unlabored respirations, skin warm/dry/pink. 21:30 Reassessment: Patient appears in no apparent distress at this time. Patient and/or jb4 family updated on plan of care and expected duration. Pain level reassessed. Patient is alert, oriented x 3, equal unlabored respirations, skin warm/dry/pink. Vital Signs: 15:27 BP 134 / 87; Pulse 88; Resp 17; Temp 98.3(O); Pulse Ox 100% on R/A; Weight 71.21 kg tw2 (R); Pain 9/10; 16:48 BP 132 / 81; Pulse 92; Resp 17; Pulse Ox 99% on R/A; tw2 17:47 BP 118 / 69; Pulse 82; Resp 17; Pulse Ox 100% on 2 lpm NC; Pain 8/10; tw2 18:44 BP 119 / 73; Pulse 79; Resp 17; Pulse Ox 100% on 2 lpm NC; tw2 19:00 BP 109 / 64; Pulse 79; Resp 16; Pulse Ox 100% on R/A; jb4 20:30 BP 110 / 68; Pulse 76; Resp 18; Pulse Ox 100% on R/A; jb4 21:30 BP 118 / 76; Pulse 75; Resp 16; Pulse Ox 99% on R/A; jb4 17:47 provider notified of pain returning and pts request for pain medicine at this time. tw2 ED Course: 15:03 Patient arrived in ED. iw 15:08 Regan Hoff DO is Attending Physician. ms3 15:23 Bed in low position. Call light in reach. Side rails up X2. [employer] wms consultant on. Pulse tw2 ox on. NIBP on. Warm blanket given. 15:29 Lary Cannon RN is Primary Nurse. tw2 15:36 Triage completed. tw2 15:36 Arm band placed on. tw2 15:37 Maintain EMS IV. Dressing intact. Good blood return noted. Site clean \\T\\ dry. Gauge \\T\\ tw 2 site: 20 g LEFT FA. 15:59 XRAY Chest (1 view) In Process Unspecified. EDMS 16:55 Patient maintains SpO2 saturation greater than 95% on room air. tw2 17:04 Alf Rios is Hospitalizing Provider. ms3 18:44 SARS RAPID Sent. tw2 21:36 No provider procedures requiring assistance completed. Patient admitted, IV remains in jb4 place. Administered Medications: 14:40 Drug: Zofran (Ondansetron) 4 mg Route: IVP; Site: left forearm; tw2 17:50 Follow up: Response: No adverse reaction tw2 14:42 Drug: morphine 4 mg {Note: rass 0.} Route: IVP; Infused Over: 4 mins; Site: left tw2 forearm; 15:00 Follow up: Response: No adverse reaction; Pain is decreased; RASS: Alert and Calm (0) tw2 17:53 Drug: morphine 4 mg {Note: RASS 0.} Route: IVP; Infused Over: 4 mins; Site: left tw2 forearm; 18:44 Follow up: Response: No adverse reaction; Pain is decreased; RASS: Alert and Calm (0) tw2 Medication: 16:51 VIS not applicable for this client. tw2 Outcome: 17:04 Decision to Hospitalize by Provider. ms3 21:30 Admitted to ER Hold. Please see [facility] for further documentation. jb4 21:30 Condition: stable 21:30 Discharge instructions given to patient, Instructed on the need for admit, Demonstrated understanding of instructions. 01/14 11:56 Patient left the ED. em6 Signatures: Dispatcher [employer] EDPolly Baez, RN RN iw Lary Cannon RN RN tw2 Addy Alcala, RN RN jb4 Regan Hoff DO DO ms3 Ladi Toscano, RN RN em6 Corrections: (The following items were deleted from the chart) 01/13 15:49 14:42 Zofran (Ondansetron) 4 mg IVP in left forearm tw2 tw2 18:44 17:47 BP 118 / 69; Pulse 82bpm; Resp 17bpm; Pulse Ox 100% RA; Pain 12/29; provider tw2 notified of pain returning and pts request for pain medicine at this time.; tw2
[2022-01-13 18:58] LABS: SARS-CoV-2 Antigen Rapid Res Negative (Negative)
--- NOTE | 2022-01-13 19:13 | P.HP ---
Certification for Inpatient Patient admitted to: Observation With expected LOS: <2 Midnights Patient will require the following post-hospital care: None Practitioner: I am a practitioner with admitting privileges, knowledge of patient current condition, hospital course, and medical plan of care. Services: Services provided to patient in accordance with Admission requirements found in Title 42 Section 412.3 of the Code of Federal Regulations Patient History Date of Service: 01/13/22 Reason for admission: Chest Pain History of Present Illness: Patient is a 61-year-old male with history of CAD s/p CABG with pacemaker/defibrillator, afib on eliquis, hypertension, hyperlipidemia, IDDM, hypothyroidism, and systolic CHF who presented to the ED via EMS with complaints of chest pain that radiates to his left arm. EMS states that they are toned out to him every 2-3 days with similar complaints. He states that he has been out of his mediations for a while now. They gave him 324 mg aspirin en route. He had cardiac work up about 2 months ago, found to have an EF of 23% with severe global hypokinesis and mild pulmonary hypertension, and discharged with life vest. Cardiology has recommended. His labs today are significant for BNP 5521 and troponin HS 25.5. Chest xray showed mild CHF. He received morphine and zofran in the ED with improvement in pain. He is admitted for further management. Allergies No Known Allergies Allergy (Verified 12/21/21 00:23) Home medications list reviewed: Yes Home Medications: Tamsulosin [Flomax*] 0.4 mg PO DAILY 11/19/18 lisinopriL [Prinivil*] 2.5 mg PO DAILY 11/19/18 Aspirin Chewable [Aspirin Chewable*] 81 mg PO BEDTIME 05/11/19 ondansetron HCL [Zofran] 4 mg PO Q8H PRN 08/01/19 Atorvastatin Calcium 40 mg PO DAILY 12/21/21 Cyclobenzaprine [Flexeril*] 10 mg PO BID PRN 12/21/21 Dicyclomine [Bentyl*] 20 mg PO QID 12/21/21 Docusate Sodium 100 mg PO BID 12/21/21 Furosemide 40 mg PO BID 12/21/21 Gabapentin 800 mg PO BID 12/21/21 Levothyroxine Sodium [Levothyroxine] 50 mcg PO DAILY 12/21/21 Metformin HCl 500 mg PO DAILY 12/21/21 Metoprolol Succinate 0.5 tab PO DAILY 12/21/21 Omeprazole 20 mg PO DAILY 12/21/21 Spironolactone 25 mg PO DAILY 12/21/21 Venlafaxine HCl 75 mg PO BID 12/21/21 glipiZIDE [Glipizide] 10 mg PO DAILY 12/21/21 Apixaban [Eliquis] 5 mg PO BID #60 tab 12/25/21 Cyclobenzaprine [Flexeril*] 10 mg PO TIDP PRN #15 tab 12/28/21 Hydrocodone 5/APAP 325 [[place] 5/325] 1 tab PO Q6H PRN #12 tab 12/28/21 - Past Medical/Surgical History Diabetic: Yes -: CAD/CO -: GERD -: Hypertension -: Anxiety/depression -: DM insulin dependent -: Hypothyroidism -: enlarged prostate -: cataract in the left eye -: fibromyalgia -: hyperlipidemia -: neuropathy -: Systolic CHF -: pacemaker placement May 2017 -: triple bypass 2002 4 stents -: back surgeries x 6 -: arthroscopic surgeries bilateral knees -: left forearm rodding -: Cholecystectomy -: Appendectomy -: tonsillectomy Psychosocial/ Personal History: Patient lives at home. He does not work. - Family History Mother -: Heart disease, Hypertension grandparents -: Diabetes, Stroke - Social History Smoking Status: Former smoker Alcohol use: No CD- Drugs: No Caffeine use: Yes Place of Residence: Home Review of Systems Cardiovascular: Chest Pain Gastrointestinal: Nausea Physical Examination - Physical Exam General: Alert, In no apparent distress HEENT: Atraumatic, PERRLA, EOMI, Sclerae nonicteric Neck: Supple, 2+ carotid pulse no bruit, No LAD, Without JVD or thyroid abnorm ality Respiratory: Clear to auscultation bilaterally, Normal air movement Cardiovascular: Regular rate/rhythm, Normal S1 S2 Gastrointestinal: Normal bowel sounds, Soft and benign, No tenderness Musculoskeletal: No tenderness, Other (bilateral BKA) Integumentary: No rashes Neurological: Normal speech, Sensation intact, Normal affect - Studies Laboratory Data (last 24 hrs) 01/13/22 15:32: WBC 8.20, Hgb 11.0 L, Hct 31.7 L, Plt Count 249 01/13/22 15:32: Sodium 141, Potassium 4.3, BUN 23 H, Creatinine 0.77, Glucose 145 H Assessment and Plan - Plan -Initial troponin negative. Trend troponin, monitor on telemetry, cardiology consult in place -Continue home medications of lisinopril, spironolactone, atorvastatin, metoprolol, and eliquis -Aspirin daily. Nitro PRN pain -ACHS Accu-Chek, moderate sliding scale insulin. Patient has been without his insulin however blood sugar not very elevated. Diabetic diet -Patient supposed to be on Lasix 40 mg BID but has been out of his medication. Chest xray showing mild CHF. Will reinitiate. Last echo 2 months ago showing EF of 23% with severe global hypokinesis and mild pulmonary hypertension. -Lipid panel morning -Monitor and replete electrolytes per protocol -Eliquis for VTE prophylaxis -Full code Discharge Plan: Home Plan to discharge in: 24 Hours - Advance Directives Does patient have a Living Will: No Does patient have a Durable POA for Healthcare: No - Code Status/Comfort Care Code Status Assessed: Yes (Full) Critical Care: No Time Spent Managing Pts Care (In Minutes): 50
[2022-01-13] MEDS ORDERED: ACETAMINOPHEN 500 MG TAB PO PRN (21:32)
[2022-01-13] MEDS: INSULIN -REGULAR HUMAN 50 UNIT/0.5 ML ML SQ SCH (21:32)
[2022-01-13] MEDS ORDERED: NITROGLYCERIN 0.4 MG/TAB SL PRN (21:32)
[2022-01-13 22:19] LABS: Troponin High Sensitivity 27.4 pg/mL (<58.9)
[2022-01-13 22:30] VITALS: BMI 25.8
[2022-01-13] MEDS ORDERED: ONDANSETRON 4 MG/2 ML VIAL IV PRN (23:10)
[2022-01-14] MEDS ORDERED: MORPHINE 4 MG/ML SYR IV PRN
[2022-01-14] MEDS ORDERED: PROMETHAZINE INJ 25 MG/ML AMP IV ONE (00:30)
[2022-01-14] MEDS ORDERED: PROMETHAZINE INJ 25 MG/ML AMP ONE (01:24)
[2022-01-14 02:18] LABS: Absolute Lymphocytes (CBC) 1.1 K/uL (0.7-4.9); Lymphocytes % 18.6 % (15.3-44.8); MCV 89.3 fL (80-100); MPV 7.6 fL (7.6-11.3); RBC Red Blood Cell Count 3.25 M/uL (4.33-5.43)
[2022-01-14 02:29] LABS: Potassium 4.1 mmol/L (3.5-5.1)
[2022-01-14] MEDS: MORPHINE 4 MG/ML SYR IV PRN ×4 (06:01→22:34)
[2022-01-14] MEDS ORDERED: MORPHINE 4 MG/ML SYR ONE (06:07)
[2022-01-14] MEDS: INSULIN -REGULAR HUMAN 50 UNIT/0.5 ML ML SQ SCH ×4 (07:30→21:00)
[2022-01-14] MEDS ORDERED: ASPIRIN EC 81 MG TAB PO ONE (08:40)
[2022-01-14] MEDS: ASPIRIN EC 81 MG TAB PO SCH (09:00)
[2022-01-14] MEDS: ENOXAPARIN 80 MG/0.8 ML SQ SCH ×2 (09:48→21:10)
[2022-01-14] MEDS ORDERED: CLOPIDOGREL 75 MG TABLET PO ONE (09:49)
[2022-01-14] MEDS: METOPROLOL XL 25 MG TAB PO SCH ×2 (09:51→17:44)
[2022-01-14] MEDS: ISOSORBIDE MONO 10 MG TAB PO SCH ×2 (09:53→21:00)
[2022-01-14] MEDS ORDERED: ONDANSETRON 4 MG (ODT) TAB PO PRN (09:57)
[2022-01-14] MEDS ORDERED: CYCLOBENZAPRINE 10 MG TAB PO PRN (09:57)
--- NOTE | 2022-01-14 09:57 | P.PN ---
Subjective Date of Service: 01/14/22 Chief Complaint: Chest Pain Patient complaining of chest pain history of coronary artery disease ran out of all his medications at home EKG is normal troponins are negative he has severe congestive heart failure. With possible CHF Review of Systems Unremarkable General: Weakness Respiratory: Shortness of Breath Physical Examination - Vital Signs Temperature: 98.3 F Blood Pressure: 129/73 Pulse: 80 Respirations: 17 Pulse Ox (%): 100 - Physical Exam General: Alert, In no apparent distress, Mild distress Respiratory: Clear to auscultation bilaterally Cardiovascular: No edema, Normal S1 S2 Gastrointestinal: Normal bowel sounds, Soft and benign - Studies Laboratory Data (last 24 hrs) 01/13/22 15:32: WBC 8.20, Hgb 11.0 L, Hct 31.7 L, Plt Count 249 01/13/22 15:32: Sodium 141, Potassium 4.3, BUN 23 H, Creatinine 0.77, Glucose 145 H Assessment And Plan - Current Problems (Diagnosis) (1) Unstable angina Current Visit: Yes Status: Acute Plan: Patient is 61 years of age admitted with chest pain presumed unstable angina changes started about a day ago history of coronary artery disease s/p CABG she has bilateral above-knee amputations history of diabetes and out of his medications fully anticoagulated start him back on antiplatelet agents beta- blockers nitrates that EKG has been ordered so far troponins are negative hemodynamically stable
[2022-01-14] MEDS ORDERED: FUROSEMIDE 20 MG/ 2ML VIAL IV ONE (09:59)
[2022-01-14] MEDS ORDERED: CLOPIDOGREL 75 MG TABLET ONE (10:31)
[2022-01-14] MEDS ORDERED: ENOXAPARIN 100 MG/ML SYR SQ ONE (10:31)
[2022-01-14] MEDS ORDERED: FUROSEMIDE 20 MG/ 2ML VIAL ONE (10:47)
[2022-01-14] MEDS: DICYCLOMINE HCL 10 MG CAP PO SCH ×3 (13:52→21:25)
[2022-01-14] MEDS: GABAPENTIN 400 MG CAP PO SCH (13:52)
[2022-01-14] MEDS: ONDANSETRON 4 MG/2 ML VIAL IV PRN ×2 (17:57→22:44)
--- NOTE | 2022-01-14 20:26 | CON ---
Date of Consultation: 01/14/2022 Reason For Consultation: Chest pain. History Of Present Illness: A 61-year-old male with history of coronary artery disease status post C ABG in the past, has congestive heart failure with a pacemaker and defibrillator, history of atrial f ibrillation, hypertension, dyslipidemia, diabetes, hypothyroidism, severe systolic heart failure, pre sents with chest pain is retrosternal, radiates to the left arm, not related to exertion and complete ly pain is resolved. The patient is known to have severe systolic heart failure with ejection fracti on 23%. He has shortness of breath on exertion, but no resting shortness of breath. Past Medical History: As outlined above in the HPI. Medications: Refer to reconciliation sheet for detailed list. Allergies: NO KNOWN DRUG ALLERGIES. Family History: No premature coronary artery disease or cancer. Social History: Ex-smoker. Does not drink or use any drugs. Past Surgical History: Below-knee amputation bilaterally and CABG history. Review of Systems: All systems reviewed and they are negative except for what mentioned in HPI. Physical Examination: Vital Signs: Reviewed. Head and Neck: Pupils are equal, reactive to light. Intact eye movements. No JVD. No cervical lym phadenopathy. Neck: Supple. Thyroid is not enlarged. Lungs: Clear to auscultation bilaterally. No rhonchi, rales, or crackles. No accessory muscle use. Heart: Irregular. No extra sounds. Abdomen: Soft, nontender. Bowel sounds positive. No organomegaly. No masses or hernia. No rigidi ty or rebound. Extremities: No clubbing, cyanosis. Intact pulses. Skin: No rashes. Neurologic: Alert, awake. No acute focal deficits appreciated. Investigations: BUN is 23, creatinine 0.82. Hemoglobin is 9.9. Assessment And Recommendation: 1.Chest pain, atypical, 3 sets of cardiac enzymes are negative. From my perspective, patient can be released. I will plan for outpatient stress test and an echocardiogram. 2.Peripheral vascular disease, status post amputation in the past. We will plan for lower extremity arterial Doppler as an outpatient. 3.Hypertension. Blood pressure is controlled. 4.Coronary artery disease. However, cardiac enzymes are negative. We will plan for outpatient stre ss test as above. SR/VAMSHI Voice ID: [id number] Report ID: [id number]
[2022-01-14] MEDS ORDERED: GABAPENTIN 300 MG CAP PO SCH (21:00)
[2022-01-14] MEDS ORDERED: ATORVASTATIN 20 MG TAB PO SCH (21:00)
[2022-01-14] MEDS: DOCUSATE NA 100 MG CAP PO SCH (21:09)
[2022-01-14] MEDS: GLUCERNA SHAKE 237 ML CAN PO SCH (21:12)
[2022-01-15] MEDS: METOPROLOL XL 25 MG TAB PO SCH (06:00)
[2022-01-15] MEDS: ONDANSETRON 4 MG/2 ML VIAL IV PRN (06:25)
[2022-01-15] MEDS: MORPHINE 4 MG/ML SYR IV PRN (06:26)
[2022-01-15] MEDS ORDERED: LEVOTHYROXINE SOD 0.05 MG TABLET PO SCH (06:30)
[2022-01-15] MEDS: INSULIN -REGULAR HUMAN 50 UNIT/0.5 ML ML SQ SCH (07:30)
[2022-01-15] MEDS ORDERED: glipiZIDE 5 MG TAB PO SCH (07:30)
[2022-01-15] MEDS ORDERED: METFORMIN HCL 500 MG TAB PO SCH (08:00)
[2022-01-15 08:48] VITALS: O2SAT 99
[2022-01-15] MEDS ORDERED: lisinopriL 5 MG TAB PO SCH (09:00)
[2022-01-15] MEDS ORDERED: HOME MED 1 EA UNK (Omeprazole [Omeprazole] 20 MG Capsule.Dr) PO SCH (09:00)
[2022-01-15] MEDS ORDERED: HOME MED 1 EA UNK (Levothyroxine Sodium [Levothyroxine] 50 MCG Capsule) PO SCH (09:00)
[2022-01-15] MEDS ORDERED: CLOPIDOGREL 75 MG TABLET PO SCH (09:00)
[2022-01-15] MEDS ORDERED: HOME MED 1 EA UNK (Glipizide [Glipizide] 10 MG Tablet) PO SCH (09:00)
[2022-01-15] MEDS ORDERED: TAMSULOSIN 0.4 MG SR CAP PO SCH (09:00)
[2022-01-15] MEDS ORDERED: PANTOPRAZOLE 40MG TABLET PO SCH (09:00)
[2022-01-15] MEDS ORDERED: SPIRONOLACTONE 25 MG TABLET PO SCH (09:00)
--- NOTE | 2022-01-15 09:15 | P.DS ---
Admission Date: 01/13/22 Discharge Date: 01/15/22 Disposition: ROUTINE DISCHARGE Discharge Condition: FAIR Reason for Admission: Chest Pain Brief History of Present Illness: Patient is 61 years of age noncompliant admitted with chest pain Hospital Course: He continues to have persistent discomfort in his upper abdomen and by cardiology troponins negative EKG did not show any ischemic changes and is noncompliant does not take his medications at home medications have been refilled patient has severe congestive heart failure there is no evidence of unstable angina at the time of discharge he was alert oriented responsive cooperative vital signs all stable chest clear seen by Dr. Quinteros and the fingernail former will need to follow-up as an outpatient and outpatient stress test Vital Signs/Physical Exam: Temp Pulse Resp BP Pulse Ox 97.5 F 65 16 104/56 L 99 01/15/22 04:00 01/15/22 04:00 01/15/22 06:26 01/15/22 06:00 01/15/22 06:26 Laboratory Data at Discharge: WBC 5.90 K/uL (4.3-10.9) D 01/14/22 01:56 Hgb 9.9 g/dL (13.6-17.9) L 01/14/22 01:56 Hct 29.0 % (39.6-49.0) L 01/14/22 01:56 Plt Count 211 K/uL (152-406) 01/14/22 01:56 Sodium 139 mmol/L (136-145) 01/14/22 01:56 Potassium 4.1 mmol/L (3.5-5.1) 01/14/22 01:56 BUN 23 mg/dL (7-18) H 01/14/22 01:56 Creatinine 0.82 mg/dL (0.55-1.3) 01/14/22 01:56 Glucose 117 mg/dL (74-106) H 01/14/22 01:56 Triglycerides 84 mg/dL (<150) 01/13/22 21:43 Cholesterol 148 mg/dL (<200) 01/13/22 21:43 HDL Cholesterol 39 mg/dL (40-60) L 01/13/22 21:43 Cholesterol/HDL Ratio 3.79 01/13/22 21:43 Home Medications: lisinopriL [Prinivil*] 2.5 mg PO DAILY 11/19/18 Aspirin Chewable [Aspirin Chewable*] 81 mg PO BEDTIME 05/11/19 ondansetron HCL [Zofran] 4 mg PO Q8H PRN 08/01/19 Cyclobenzaprine [Flexeril*] 10 mg PO BID PRN 12/21/21 Dicyclomine [Bentyl*] 20 mg PO QID 12/21/21 Docusate Sodium 100 mg PO BID 12/21/21 Gabapentin 800 mg PO BID 12/21/21 Hydrocodone 5/APAP 325 [[place] 5/325*] 1 tab PO Q6H PRN #12 tab 12/28/21 Gabapentin 1 cap PO BEDTIME 01/14/22 Apixaban [Eliquis] 5 mg PO BID #60 tab 01/15/22 Atorvastatin Calcium 40 mg PO DAILY #30 01/15/22 Furosemide 40 mg PO BID #30 01/15/22 Insulin -Regular Human [Novolin -R*] 1 unit SQ PRN 01/15/22 Insulin 70/30 NPH/Reg Human [Novolin 70/30*] 1 unit SQ PRN 01/15/22 Levothyroxine Sodium [Euthyrox] 50 mcg PO DAILY #30 01/15/22 Levothyroxine Sodium [Levothyroxine] 50 mcg PO DAILY 30 Days #30 01/15/22 Metformin HCl 500 mg PO DAILY #30 01/15/22 Metoprolol Succinate 0.5 tab PO DAILY 30 Days #30 01/15/22 Omeprazole 20 mg PO DAILY 30 Days #30 01/15/22 Spironolactone 25 mg PO DAILY #30 01/15/22 Tamsulosin [Flomax*] 0.4 mg PO DAILY #30 cap 01/15/22 Venlafaxine HCl 75 mg PO BID 30 Days #60 01/15/22 glipiZIDE [Glipizide] 10 mg PO DAILY #30 01/15/22 New Medications: Atorvastatin Calcium 40 mg PO DAILY #30 Apixaban [Eliquis] 5 mg PO BID #60 tab Levothyroxine Sodium [Euthyrox] 50 mcg PO DAILY #30 Tamsulosin [Flomax*] 0.4 mg PO DAILY #30 cap Furosemide 40 mg PO BID #30 glipiZIDE [Glipizide] 10 mg PO DAILY #30 Levothyroxine Sodium [Levothyroxine] 50 mcg PO DAILY 30 Days #30 Metformin HCl 500 mg PO DAILY #30 Metoprolol Succinate 0.5 tab PO DAILY 30 Days #30 Omeprazole 20 mg PO DAILY 30 Days #30 Spironolactone 25 mg PO DAILY #30 Venlafaxine HCl 75 mg PO BID 30 Days #60 Physician Discharge Instructions: To transmit any of his medications please check with the patient and call in 30 days of supplies whatever he needs please check his home medication list I will not be able to call and pain medications not sure if he is getting Eliquis Diet: ADA Followup: NONE,NONE [Primary Care Provider] - Kavin Keenan MD [ACTIVE - CAN ADMIT] -
[2022-01-15 09:19] VITALS: BP 108/55; TEMP 97
[2022-01-15] MEDS: DOCUSATE NA 100 MG CAP PO SCH (09:39)
[2022-01-15] MEDS: ASPIRIN EC 81 MG TAB PO SCH (09:39)
[2022-01-15] MEDS: DICYCLOMINE HCL 10 MG CAP PO SCH (09:40)
[2022-01-15] MEDS: ENOXAPARIN 80 MG/0.8 ML SQ SCH (09:40)
[2022-01-15] MEDS: GABAPENTIN 400 MG CAP PO SCH (09:40)
[2022-01-15] MEDS: GLUCERNA SHAKE 237 ML CAN PO SCH (09:45)
[2022-01-15] MEDS: ISOSORBIDE MONO 10 MG TAB PO SCH (09:45)
--- NOTE | 2022-01-15 15:23 | EKG ---
Test Date: 2022-01-13 Test Time: 15:50:01 Bleach Boiler Packer: MAYDA MEASUREMENT RESULTS: Intervals: Rate: 84 IL: 202 QRSD: 154 QT: 436 QTc: 515 [place]: P: 55 [place]: 202 QRS: -28 T: 145 INTERPRETIVE STATEMENTS: Electronic ventricular pacemaker Compared to ECG 01/08/2022 07:03:27 No significant changes Electronically Signed On 01-15-22 15:20:04 CDT by Kavin Keenan
== END 2022-01-15 11:49 | disposition home or self-care (01) ==
LOC: ER 15:01 → ERHOLD 18:26 → 4TH 01-14 11:34
PROVIDERS: ADMIT Internal Medicine; ATTEND Internal Medicine Sleep Medicine
DX: R07.89 Other chest pain (principal); I25.10 Atherosclerotic heart disease of native coronary artery without angina pectoris; I11.0 Hypertensive heart disease with heart failure; I50.20 Unspecified systolic (congestive) heart failure; E78.5 Hyperlipidemia, unspecified; I48.91 Unspecified atrial fibrillation; I73.9 Peripheral vascular disease, unspecified; E03.9 Hypothyroidism, unspecified; E11.40 Type 2 diabetes mellitus with diabetic neuropathy, unspecified; I27.20 Pulmonary hypertension, unspecified; I25.2 Old myocardial infarction; K21.9 Gastro-esophageal reflux disease without esophagitis; F41.9 Anxiety disorder, unspecified; F32.A Depression, unspecified; N40.0 Benign prostatic hyperplasia without lower urinary tract symptoms; M79.7 Fibromyalgia; I69.954 Hemiplegia and hemiparesis following unspecified cerebrovascular disease affecting left non-dominant side; Z91.19 Patient's noncompliance with other medical treatment and regimen; Z95.810 Presence of automatic (implantable) cardiac defibrillator; Z95.1 Presence of aortocoronary bypass graft; Z95.5 Presence of coronary angioplasty implant and graft; Z87.891 Personal history of nicotine dependence; Z79.84 Long term (current) use of oral hypoglycemic drugs; Z79.01 Long term (current) use of anticoagulants; Z79.82 Long term (current) use of aspirin; Z79.4 Long term (current) use of insulin; Z79.899 Other long term (current) drug therapy; Z90.49 Acquired absence of other specified parts of digestive tract; Z89.612 Acquired absence of left leg above knee; Z89.611 Acquired absence of right leg above knee; Z82.3 Family history of stroke; Z83.3 Family history of diabetes mellitus
CPT/HCPCS: 93005; 85025 ×2; 80048 ×2; 36415; 80061; 82947 ×5; 84484 ×3; 83880; 71045; 96375; 96374; 99285; 87811; J1940; J2550; J1650; J2405 ×5; G0378 ×4

== ENCOUNTER 2022-01-17 16:52 | Inpatient (IN) | payer OTHER ==
--- OUTSIDE RECORDS SUMMARY | 2022-01-17 16:59 | XMS REPORT | Continuity of Care Document ---
:1960 Author Organization [facility] t Address [address] [place] [address] Care Team Providers Name Role Phone MONIKA HALL MD Primary Care Physician [id number] Attending Clinician Unavailable Harshal Zhu Attending Clinician Unavailable Finn Shah Attending Clinician Unavailable Tory KU Attending Clinician Unavailable Troy Wahl Attending Clinician MIHAELA MARTIN Attending Clinician Unavailable Mihaela Martin NP Attending Clinician Micaela Feliciano RN Attending Clinician Unavailable OC BRYSON Attending Clinician Unavailable ANA MARIA MEZA Attending Clinician Unavailable Tej_Rizwana Attending Clinician Unavailable Fede Carrera Attending Clinician Unavailable Radiology Attending Clinician Unavailable PERLA LOCKHART Attending Clinician Unavailable Gnia Heath MD Attending Clinician KNOW, DOES_NOT Attending Clinician Unavailable Johnie Montanez Attending Clinician Unavailable ALEXIS COX Attending Clinician Unavailable JACQUELYN MONTES DE OCA Attending Clinician Unavailable NICHELLE PALACIOS Attending Clinician Unavailable [id number] Admitting Clinician Unavailable Nika Martin Admitting Clinician [...] Number Effective Date Expiration Date S willow [facility] [id number] igobubble [id number] 2018spring 00:00:00 [employer] [id number] 2004 LUCY Frankel 00:00:00 [facility] [...] Disease Active Univers 4-14 ity of 00:00: Medical Branch Right leg Right leg Disease [...] y of l artery l artery 00:00: [place] disease) disease) 00 Medica l Branch Anemia [...] nivers tis tis 0-26 ity of 00:00: 00 Medical Branch Preop Preop Disease Active [...] Added automatic ally from request for surgery [id number] Troponin I Troponin I Disease Active 2019- U nivers above above 9-16 ity of reference [place] 00:[place] range range 00 [place] Pleural Pleural Disease Active Univers effusion effusion 9-15 ity of 00:00: [...] Active Uni vers 3-18 ity of 00:00: [place] [...] 00:00: [place] involving involving 00 Medi uriel wiyot wiyot 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 Type 2 Type 2 Disease Active 2019- Univers diabetes diabetes 01-17 ity of mellitus mellitus 00:00: [place] without without 00 Medical complicati complicati Br anch on, on, without without long-term long-term current current use of use of insulin insulin Essential Essential Disease Active Uni vers hypertensi hypertensi 01-17 it y of on on 00:00: [place] [address] Medical Branch Other Other Disease Active Univers hyperlipid hyperlipid 01-17 it y of emia emia 00:00: [place] [address] Medical Branch Stroke Stroke Disease Active Univers 5-12 ity of 00:00: [place] [facility] Left-sided Left-sided Disease Active U nivers weakness weakness 5- ity of 00:00: [place] [facility] Left sided Left sided Disease Active U nivers numbness numbness - ity of 00:00: [place] 00 Medical Branch S/P admn S/P admn Disease Active Unive rs tPA in tPA in 4-11 ity of diff fac diff fac 00:00: [place] w/n last w/n last 00 Medica l 24 hr bef 24 hr bef Bran ch adm to adm to crnt fac crnt fac Unstable Unstable Disease Active Unive rs angina angina 4-10 ity of 00:00: [place] [facility] Atypical Atypical Disease Active Unive rs chest pain chest pain 2-22 it y of 00:00: [place] [facility] [place] Chest pain Chest pain Problem Active [facility] Coronary CAD Problem Active [facility] artery (coronary [facility] disease artery Patient disease) Medical [place] Diabetic DKA Problem Active [facility] ketoacidos (diabetic Esme es is ketoacidos Patien t es) Medical [place] Hyperglyce Hyperglyce Problem Active [facility] bambi bambi [facility] Hypertensi Hypertensi Problem Active [facility] on on [facility] Pancreatit Pancreatit Problem Active [facility] is is [facility] Uncontroll Uncontroll Problem Active [facility] ed ed [facility] diabetes diabetes Patien t mellitus mellitus Medica l Center Allergies, Adverse Reactions, Alerts Allergy Allergy Status Severity Reaction(s) Onset Inactive Treating Comm ents Source Name Type Date Date Clinician No Known DA Active U 2021-0 [facility]ie 3[facility]22 [place] [facility] 00:00: d 00 [facility] No Known DA Active U 2020-0 [facility] Allergie 3-22 [place] 00:00: d 00 [facility] No Known DA Active U 2017- [facility] Allergie 2-31 [facility] s 00:00: Mejia 00 [facility] No Known DA Active U 2018-1 [facility] Allergie 2-31 Clear s 00:00: Mej[place] 00 [facility] No Known DA Active U 2018-0 [facility] Allergie 3-26 [place] 00:00: e 00 [facility] NO KNOWN Drug Active Univers ALLERGIE Class ity of S [place] [facility] Social History Social Habit Start Date Stop Date Quantity Comments Source History of Cigarette Smoker Universi ty of tobacco use [place] [facility] History SDOH University o f Alcohol Frequency [place] M edical Branch History SDOH University o f Alcohol Std [place] [facility] Drinks Branch History SDOH University o f Alcohol Binge [place] [facility] al [facility] Exposure to 2021-10-30 2021-11-09 Unable to assess Univers ity of SARS-CoV-2 00:00:00 15:13:00 [facility] [place] (event) Branch Alcohol intake 2021-11-05 2021-11-05 1.71 /d University of 00:00:00 00:00:00 [facility] [place] Branch Tobacco Comment 2021-11-03 2021-11-03 quit 15 years ago Un iversity of 00:00:00 00:00:00 [place] [facility] Education 2021-10-27 2021-10-27 9 University of 00:00:00 00:00:00 [place] [facility] History SDOH 2020-03-16 2020-03-16 3 University o f Financial 00:00:00 00:00:00 [place] [facility] History SDOH Food 2020-03-16 2020-03-16 2 Univers ity of Worry 00:00:00 00:00:00 [place] [facility] History SDHI Food 2020-03-16 2020-03-16 2 Univers ity of Scarcity 00:00:00 00:00:00 [place] [facility] History SDOH 2020-03-16 2020-03-16 1 University o f Transport Med 00:00:00 00:00:00 [place] Medic al Branch History SDOH 2020-03-16 2020-03-16 1 University o f Transport Non-Med 00:00:00 00:00:00 [place] M edical [facility] Alcohol Comment 2019-07-18 2019-07-18 quit drinking [employer] of 00:00:00 00:00:00 2013 but drank [facility] heavily before Branch this Tobacco use and 2018-07-14 2018-07-14 Never used Universit y of exposure 00:00:00 00:00:00 [facility] Sex Ass[birth year] At [birth year] Universit y of 00:00:00 00:00:00 [facility] Smoking Status Start Date Stop Date Source Former smoker 2018-07-14 00:00:00 2018-07-14 00:00:00 [facility] Medications Ordered Filled Start Stop [...] :00 ONCE, 1 Medical dose, On Branch Mon11/05/21 at 0215, Routine gabapentin 2021-2021- No 300mg [...] at 0215, 1 mL gabapentin 2021- Yes [id number] 300mg Take 1 Univers 300 mg 11-05 capsule by ity of capsule 00:00: 04:59 mouth 3 [place] 00 :00 (three) Medical times Branch daily for 10 days. gabapentin 2021- Yes [id number] 300mg Take 1 Univers 300 mg 11-05 capsule by ity of capsule 00:00: 04:59 mouth 3 [place] 00 :00 (three) Medical times Branch daily for 10 days. aspirin 81 2021- Yes [id number] 81mg Take 1 Univers mg chewable 6-16 07-17 tablet by it y of tablet 00:00: 04:59 mouth [place] 00 :00 daily for Medical 30 days. Branch aspirin 81 2021- Yes [id number] 81mg Take 1 Univers mg chewable 6-16 07-17 tablet by it y of tablet 00:00: 04:59 mouth [place] 00 :00 daily for Medical 30 days. Branch aspirin 81 2021- Yes [id number] 81mg Take 1 Univers mg chewable 6-16 07-17 tablet by it y of tablet 00:00: 04:59 mouth [place] 00 :00 daily for Medical 30 days. Branch proMETHazin Yes [id number] 25mg Take 1 Univers e 25 mg 6-03 tablet by ity of tablet 00:00: mouth [place] 00 every 6 Medical (six) Branch hours as needed for Nausea and Vomiting (N/V). proMETHazin Yes [id number] 25mg Take 1 Univers e 25 mg 6-03 tablet by ity of tablet 00:00: mouth [place] 00 every 6 Medical (six) Branch hours as needed for Nausea and Vomiting (N/V). proMETHazin Yes [id number] 25mg Take 1 Univers e 25 mg 6-03 tablet by ity of tablet 00:00: mouth [place] 00 every 6 Medical (six) Branch hours as needed for Nausea and Vomiting (N/V). fenofibrate 2021- Yes [id number] 134mg Take 1 Univers micronized -19 12- capsule by it y of 134 mg 00:00: 04:59 mouth [place] capsule 00 :00 daily for Medical 30 days. Branch lisinopriL 2021- Yes [id number] 2.5mg Take 1 Univers 2.5 mg 5-19 12- tablet by ity of tablet 00:00: 04:59 mouth [place] 00 :00 daily for Medical 30 days. Branch fenofibrate 2021- Yes [id number] 134mg Take 1 Univers micronized -19 12- capsule by it y of 134 mg 00:00: 04:59 mouth [place] capsule 00 :00 daily for Medical 30 days. Branch lisinopriL 2021- Yes [id number] 2.5mg Take 1 Univers 2.5 mg -19 12- tablet by ity of tablet 00:00: 04:59 mouth [place] 00 :00 daily for Medical 30 days. Branch fenofibrate 2021- Yes [id number] 134mg Take 1 Univers micronized -19 12- capsule by it y of 134 mg 00:00: 04:59 mouth [place] capsule 00 :00 daily for Medical 30 days. Branch lisinopriL 2021- Yes [id number] 2.5mg Take 1 Univers 2.5 mg -19 12- tablet by ity of tablet 00:00: 04:59 mouth [place] 00 :00 daily for Medical 30 days. Branch furosemide 2021- No [id number] 40mg Take 1 Univers 40 mg 5-30 06-30 tablet by ity of tablet 00:00: 04:59 mouth [place] 00 :00 every Medical morning Branch and evening for 30 days. apixaban 5 2021- No [id number] 5mg Take 1 Univ ers mg tablet 5-30 06-30 tablet by ity of 00:00: 04:59 mouth 2 [place] 00 :00 (two) Medical times Branch daily for 30 days. Indication s: atrial fibrillati on calcitrioL 2021- No [id number] .5ug Take 1 Univers 0.5 mcg 5-30 06-30 capsule by ity o f capsule 00:00: 04:59 mouth [place] 00 :00 daily for Medical 30 days. Branch insulin NPH 2021- No [id number] 5U inject 5 Univers (HUMULIN N 5-30 06-30 Units ity of NPH U-100 00:00: 04:[place]ULIN[place] 00 :00 skin every Medic al 100 unit/mL evening Branc h injection for 30 days. atorvastati 2021- No [id number] 40mg Take 1 Univers n 40 mg 5-30 -30 tablet by ity of tablet 00:00: 04:59 mouth at [place] 00 :00 bedtime Medical for 30 Branch days. carvediloL 2021- No [id number] 3.125mg Take 1 Univers 3.125 mg 5-30 06-30 tablet by ity o f tablet 00:00: 04:59 mouth 2 [place] 00 :00 (two) Medical times [place] daily with meals for 30 days. furosemide 2021- No [id number] 40mg Take 1 Univers 40 mg 5-30 06-30 tablet by ity of tablet 00:00: 04:59 mouth [place] 00 :00 every Medical morning Branch and evening for 30 days. apixaban 5 2021- No [id number] 5mg Take 1 Univ ers mg tablet 5-30 06-30 tablet by ity of 00:00: 04:59 mouth 2 [place] 00 :00 (two) Medical times [place] daily for 30 days. Indication s: atrial fibrillati on calcitrioL 2021- No [id number] .5ug Take 1 Univers 0.5 mcg 5-30 06-30 capsule by ity o f capsule 00:00: 04:59 mouth [place] 00 :00 daily for Medical 30 days. Branch insulin NPH 2021- No [id number] 5U inject 5 Univers (HUMULIN N 5-30 06-30 Units ity of NPH U-100 00:00: 04:[place] INSULIN[place] 00 :00 skin every Medic al 100 unit/mL evening Branc h injection for 30 days. atorvastati 2021- No [id number] 40mg Take 1 Univers n 40 mg 5-30 06-30 tablet by ity of tablet 00:00: 04:59 mouth at [place] 00 :00 bedtime Medical for 30 Branch days. carvediloL 2021- No [id number] 3.125mg Take 1 Univers 3.125 mg 5-30 -30 tablet by ity o f tablet 00:00: 04:59 mouth 2 [place] 00 :00 (two) Medical times Branch daily with meals for 30 days. furosemide 2021- No [id number] 40mg Take 1 Univers 40 mg 5-30 -30 tablet by ity of tablet 00:00: 04:59 mouth [place] 00 :00 every Medical morning Branch and evening for 30 days. apixaban 5 2021- No [id number] 5mg Take 1 Univ ers mg tablet 5-30 -30 tablet by ity of 00:00: 04:59 mouth 2 [place] 00 :00 (two) Medical times Branch daily for 30 days. Indication s: atrial fibrillati on calcitrioL 2021- No [id number] .5ug Take 1 Univers 0.5 mcg 5-30 -30 capsule by ity o f capsule 00:00: 04:59 mouth [place] 00 :00 daily for Medical 30 days. Branch insulin NPH 2021- No [id number] 5U inject 5 Univers (HUMULIN N 5-30 06-30 Units ity of NPH U-100 00:00: 04:[place]ULIN[place] 00 :00 skin every Medic al 100 unit/mL evening Branc h injection for 30 days. atorvastati 2021- No [id number] 40mg Take 1 Univers n 40 mg 5-30 -30 tablet by ity of tablet 00:00: 04:59 mouth at [place] 00 :00 bedtime Medical for 30 Branch days. carvediloL 2021- No [id number] 3.125mg Take 1 Univers 3.125 mg 5-30 -30 tablet by ity o f tablet 00:00: 04:59 mouth 2 [place] 00 :00 (two) Medical times Branch daily with meals for 30 days. metFORMIN Yes [id number] 500mg Take 1 U nivers 500 mg 3-02 tablet by ity of tablet 00:00: mouth 2 [place] 00 (two) Medical times Branch daily with meals. metFORMIN 0 Yes [id number] 500mg Take 1 U nivers 500 mg 3-02 tablet by ity of tablet 00:00: mouth 2 [place] (two) Medical times Branch daily with meals. metFORMIN 0 Yes [id number] 500mg Take 1 U nivers 500 mg 3-02 tablet by ity of tablet 00:00: mouth 2 [place] (two) Medical times Branch daily with meals. albuterol Yes [id number] 2{puff} Inhale 2 Univers 90 2-21 Puffs 2 ity of mcg/actuati 00:00: (two) [place] on inhaler 00 times Medical daily. Branch collagenase Yes [id number] Use as Univers 250 2-21 directed ity of unit/gram 00:00: by office Juan J as ointment 00 Medical Branch cyclobenzap Yes [id number] 10mg Take 1 Univers rine 10 mg 2-21 tablet by ity of tablet 00:00: mouth 2 [place] (two) Medical times Branch daily as needed for Muscle Spasms. dextrometho Yes [id number] 10mL Take 10 mL Univers rphan-guaif 2-21 by mouth ity of enesin 00:00: every 6 [place] 10-100 mg/5 00 (six) Medical mL solution hours as Bran ch needed for Cough. HYDROcodone Yes 1{tbl} Take 1 Un charley -acetaminop 2-21 tablet by ity of hen 5-325 00:00: mouth [place] mg tablet 00 every 6 Medical (six) Branch hours as needed for Pain (scale 4-6). melatonin 3 0 Yes [id number] 3mg Take 1 Univers mg tablet 2-21 tablet by ity o f 00:00: mouth at [place] 00 bedtime. Medical Branch ondansetron 0 Yes [id number] 4mg Take 1 Univers 4 mg 2-21 tablet by ity of disintegrat 00:00: mouth [place] ing tablet 00 every 8 Medica l (eight) Branch hours as needed for Nausea and Vomiting (N/V). albuterol 0 Yes [id number] 2{puff} Inhale 2 Univers 90 2-21 Puffs 2 ity of mcg/actuati 00:00: (two) [place] on inhaler 00 times Medical daily. Branch collagenase Yes [id number] Use as Univers 250 2-21 directed ity of unit/gram 00:00: by office Juan J as ointment 00 Medical Branch cyclobenzap Yes [id number] 10mg Take 1 Univers rine 10 mg 2-21 tablet by ity of tablet 00:00: mouth 2 [place] 00 (two) Medical times Branch daily as needed for Muscle Spasms. dextrometho 0 Yes [id number] 10mL Take 10 mL Univers rphan-guaif 2-21 [...] Pain (scale 4-6). melatonin 3 0 Yes [id number] 3mg Take 1 Univers mg tablet 2-21 tablet by ity o f 00:00: mouth at [place] 00 bedtime. Medical Branch ondansetron 0 Yes [id number] 4mg Take 1 Univers 4 mg 2-21 tablet by ity of disintegrat 00:00: mouth [place] ing tablet 00 every 8 Medica l (eight) Branch hours as needed for Nausea and Vomiting (N/V). albuterol Yes [id number] 2{puff} Inhale 2 Univers 90 2-21 Puffs 2 ity of mcg/actuati 00:00: (two) [place] on inhaler 00 times Medical daily. Branch collagenase 0 Yes [id number] Use as Univers 250 2-21 directed ity of unit/gram 00:00: by office Juan J as ointment 00 Medical Branch cyclobenzap Yes [id number] 10mg Take 1 Univers rine 10 mg 2-21 tablet by ity of tablet 00:00: mouth 2 [place] 00 (two) Medical times Branch daily as needed for Muscle Spasms. dextrometho 0 Yes [id number] 10mL Take 10 mL Univers rphan-guaif 2-21 [...] for Pain (scale 4-6). melatonin 3 Yes [id number] 3mg Take 1 Univers mg tablet 2-21 tablet by ity o f 00:00: mouth at [place] 00 bedtime. Medical Branch ondansetron Yes [id number] 4mg Take 1 Univers 4 mg 2-21 tablet by ity of disintegrat 00:00: mouth [place] ing tablet 00 every 8 Medica l (eight) Branch hours as needed for Nausea and Vomiting (N/V). Aspirin 81 Aspirin 81 2018- No Alexis [address] [facility] Mg Tab.chew Mg Tab.chew 10-26 Brooke Frankel 00:00: 00:00 Patient 00 :00 [facility] Diflunisal Diflunisal 2015- No Todd Wynn [address] [facility] (Dolobid) (Dolobid) 01-17[facility] 500 Mg 500 Mg 00:00: 00:00 Patient Tablet, 500 Tablet, 500 00 :00 M edical Mg Oral Mg Oral [place] Ondansetron Ondansetron 2015- No Todd Wynn [address] [facility] Hcl Hcl 01-17 [place] s (Zofran*) 4 (Zofran*) 4 00:00: 00:00 needed for Patient Mg Tablet, Mg Tablet, 00 :00 Nausea M edical 4 Mg 4 Mg [place] Sublingual Sublingual Clopidogrel Clopidogrel Yes [address] Bisulfate Bisulfate Jostin (Plavix) 75 (Plavix) 75 P atient Mg Tablet Mg Tablet Medic al Center Cyclobenzap Cyclobenzap Yes [address] rine Hcl rine Hcl Times A Theresake s (Flexeril) (Flexeril) Day as P atient [...] [facility] nophen nophen needed for Patie nt ([place] ([facility] 10-325 10-325 Center Tablet) 1 [...] I St 20 Mg 20 Mg [facility] Capsule.dr Lind.dr John [facility] Simvastatin Simvastatin Yes [address] 80 Mg 80 Mg [facility] Tablet Tablet Patient Medical Center Tamsulosin Tamsulosin Yes Daily [facility] Hcl 0.4 Mg Hcl 0.4 Mg Esme es Cap.er.24h Cap.er.24h Pat [facility] Tramadol Tramadol Yes 50 Four [...] Navid tietangela Mg Oral Mg Oral :00 [facility] Center Insulin Insulin 2016- No 40 7AM [...] ical [facility] (1-3) Ranolazine Ranolazine [address] [facility] (Ranexa) (Ranexa) [...] Mg Oral Mg Oral Center Insulin Insulin [address] Regular, Regular, 03-22 Meals [facility] Human Human 00:00 Patient (Humulin R) (Humulin R) :00 M edical 100 Unit/1 100 Unit/[address] Ml Vial, 20 Ml Vial, 20 Units Sub-Q Units Sub-Q Omeprazole Omeprazole I St 40 Mg 40 Mg 06-17 [facility] Capsule., Capsule., 00:00 Patient :00 [facility] Insulin Insulin No Twice A [...] Clinic [facility] Albuterol Albuterol [address] [facility] Sulfate Sulfate [...] 00:00 Patient Mg Oral Mg Oral :00 [facility] Center Methocarbam Methocarbam No [address] ol ol 11-23 Times A [facility] (Robaxin) (Robaxin) 00:00 Day Manjula ent 500 Mg 500 Mg :00 Medical Tablet, 500 Tablet, 500 C enter Mg Oral Mg Oral Metronidazo Metronidazo No [address] le 500 Mg le 500 Mg 11-23 Luke s Tablet, 500 Tablet, 500 00:00 Patient Mg Oral Mg Oral :00 [facility] Center Nitroglycer Nitroglycer No .[address] in [...] Manjula ent Gm Oral Gm Oral :00 [facility] Temazepam Temazepam [address] (Restoril) (Restoril) 11-23 Theresa kes 30 Mg 30 Mg 00:00 Patient Capsule, 30 Capsule, 30 :00 M edical Mg Oral Mg Oral Center Tizanidine Tizanidine No [address] Hcl 4 Mg Hcl 4 Mg 11-23 [facility] Capsule, 4 Capsule, 4 00:00 Pa tient Mg Oral Mg Oral :00 [facility] Trazodone Trazodone No [address] Hcl 50 Mg Hcl 50 Mg 11-23 Luke s Tablet, 50 Tablet, 50 00:00 Pa tient Mg Oral Mg Oral :00 [facility] Venlafaxine Venlafaxine No 37.[address] [facility] Hcl 37.5 Mg Hcl 37.5 Mg 11-23 Day [facility] Tablet, Tablet, 00:00 Patient 37.5 Tab 37.5 Tab :00 Medical Oral Oral Center Cyclobenzap Cyclobenzap [address] rine Hcl 10 rine Hcl 10 12-19 Times A [facility] Mg Tablet, Mg Tablet, 00:00 Day Pa tient 10 Mg Oral 10 Mg Oral :00 [facility] ical [place] Gabapentin Gabapentin No [address] 300 Mg 300 Mg 12-19 Times A [facility] Capsule, Capsule, 00:00 Day Patien t 600 Mg Oral 600 Mg Oral :00 M [facility] Pregabalin Pregabalin No 150 Twice [...] Immunizations Ordered Filled Immunization Date Status Comments [facility] e Immunization Name Name Influenza Virus 2021-01-16 Completed Universit y of Vaccine 00:00:00 [facility] Influenza Virus 2021-01-16 Completed Universit y of Vaccine 00:00:00 [facility] Influenza Virus 2021-01-16 Completed Universit y of Vaccine 00:00:00 [facility] SARS-COV-2 COVID-19 2020-10-16 Completed Unive rsity of PEDRO/J&J VACCINE 00:00:00 [facility] SARS-COV-2 COVID-19 2020-10-16 Completed Unive rsity of PEDRO/J&J VACCINE 00:00:00 [facility] SARS-COV-2 COVID-19 2020-10-16 Completed Unive rsity of PEDRO/J&J VACCINE 00:00:00 [facility] Influenza Virus 2020-01-21 Completed Universit y of Vaccine 00:00:00 [facility] Influenza Virus 2020-01-21 Completed Universit y of Vaccine 00:00:00 [facility] Influenza Virus 2020-01-21 Completed Universit y of Vaccine 00:00:00 [facility] Zoster Vaccine 2019-07-17 Completed University of Recombinant 00:00:00 [facility] Zoster Vaccine 2019-07-17 Completed University of Recombinant 00:00:00 [facility] Zoster Vaccine 2019-07-17 Completed University of Recombinant 00:00:00 [facility] Td 2019-03-29 Completed University of 00:00:00 [facility] Td 2019-03-29 Completed University of 00:00:00 [facility] Td 2019-03-29 Completed University of 00:00:00 [facility] Influenza Virus 2018-02-18 Completed Universit y of Vaccine 00:00:00 [facility] Pneumococcal 2018-02-18 Completed University o f Polysaccharide, 00:00:00 [place] Med ical PPSV23 (PNEUMOVAX) [place] Influenza Virus 2018-02-18 Completed Universit y of Vaccine 00:00:00 [facility] Pneumococcal 2018-02-18 Completed University o f Polysaccharide, 00:00:00 [place] Med ical PPSV23 (PNEUMOVAX) [place] Influenza Virus 2018-02-18 Completed Universit y of Vaccine 00:00:00 [facility] Pneumococcal 2018-02-18 Completed University o f Polysaccharide, 00:00:00 [place] Med ical PPSV23 (PNEUMOVAX) [place] Influenza Virus 2008-03-19 Completed Universit y of Vaccine 00:00:00 [facility] Pneumococcal 2008-03-19 Completed University o f Polysaccharide, 00:00:00 [place] Med ical PPSV23 (PNEUMOVAX) Branch Influenza Virus 2008-03-19 Completed Universit y of Vaccine 00:00:00 [facility] Pneumococcal 2008-03-19 Completed University o f Polysaccharide, 00:00:00 [place] Med ical PPSV23 (PNEUMOVAX) Branch Influenza Virus 2008-03-19 Completed Universit y of Vaccine 00:00:00 [facility] Pneumococcal 2008-03-19 Completed University o f Polysaccharide, 00:00:00 [facility] ical PPSV23 (PNEUMOVAX) Branch Vital Signs Vital Name Observation Time Observation Value Comments Source Systolic blood 2021-11-09 23:00:00 124 mm[Hg] Univer sity of pressure [facility] Diastolic blood 2021-11-09 23:00:00 69 mm[Hg] Unive rsity of [facility] Heart rate 2021-11-09 23:00:00 72 /min [facility] ty [facility] Respiratory rate 2021-11-09 23:00:00 25 /min [facility] [place] [facility] saturation in 2021-11-09 23:00:00 98 /min University of Arterial blood by [place] Veh[place] uriel Pulse oximetry Branch Body temperature 2021-11-09 20:28:39 37.22 Sandy [facility] [place] [facility] Body height 2021-11-09 20:16:00 170.2 cm [facility] Body weight 2021-11-09 20:16:00 71.215 kg [facility] BMI 2021-11-09 20:16:00 24.59 kg/m2 [facility] Systolic blood 2021-11-05 10:00:00 134 mm[Hg] Univer sity of [facility] Diastolic blood 2021-11-05 10:00:00 78 mm[Hg] Unive rsity of [facility] Heart rate 2021-11-05 10:00:00 81 /min [facility] ty [facility] Body temperature 2021-11-05 08:10:00 36.28 Sandy [facility] ersity [facility] Respiratory rate 2021-11-05 08:00:00 18 /min Univ ersity [facility] Oxygen saturation in 2021-11-05 08:00:00 99 /min University of Arterial blood by [employer] uriel Pulse oximetry Branch Body height 2021-11-05 05:48:00 170.2 cm [facility] Body weight 2021-11-05 05:48:00 71.215 kg [facility] BMI 2021-11-05 05:48:00 24.59 kg/m2 [facility] Procedures Procedure Date / Time Performing Clinician Source Performed XR CHEST 1 VW 2021-11-09 21:07:00 Troy Ku Mckenzie [facility] POCT GLUCOSE 2021-11-09 20:25:00 Troy Ku Mckenzie [facility] (AUTOMATED) [facility] MAGNESIUM 2021-11-09 20:19:00 [facility] TROPONIN I 2021-11-09 20:19:00 [facility] COMP. METABOLIC PANEL 2021-11-09 20:19:00 Troy Ku [facility] ([id number]) [facility] CBC WITH DIFF 2021-11-09 20:19:00 Troy Ku [facility] N-TERMINAL PRO-BNP 2021-11-09 20:19:00 Troy Ku [facility] XR CHEST 1 2021-11-05 06:38:35 Mihaela Martin [facility] [id number] 2020-08-11 00:00:00 ALDMO [facility] [id number] 2020-08-11 00:00:00 ALDMO [facility] [id number] 2020-08-11 00:00:00 ALDMO [facility] [id number] 2020-08-11 00:00:00 ALDMO [facility] Computed tomography 2017-10-24 00:00:00 ALEXIS [facility] Patient angiography of brain [facility] CT angiography of chest 2017-10-23 00:00:00 KHAI WAHL V C HI [facility] Center Computed tomography of 2017-10-23 00:00:00 KHAI WAHL CH I [facility] Patient brain [facility] radiopaque contrast Computed tomography of 2017-04-04 00:00:00 JACQUELYN MONTES DE [facility]CA [facility] [place] [facility] radiopaque contrast Computed tomography of 2017-04-04 00:00:00 JACQUELYN [facility]ONTES DE OCA [facility] [place] Patient cervical spine without Medical [facility] enter contrast US abdomen complete 2017-03-08 00:00:[address] [facility] Encounters Start End Encounter Admission Attending Care Care Encounter Source Date/Time Date/Time Type Type Clinicians Facility Department ID 2021-06-17 Outpatient 3 [id number] ENCKY MALDONADO ENCKY 10:24:03 [id number] 2021-06-17 Outpatient 3 [id number] ENCKY REF ENCKY 10:22:04 60612 2020-08-23 Inpatient HCACL FERNANDO [facility] 17:41:00 [id number] [facility] 2020-04-04 Inpatient Marko, HCAMN HCAMN [facility] 14:40:00 Harshal [address]61 [facility] 2019-10-15 Inpatient RADHA Shah, HCAPM ENDO [facility] 15:30:00 Finn 46184 [facility] 2021-11-09 2021-11-09 Emergency X KINGS, K [facility] ERT [id number] Univers 15:15:00 18:32:00 ity [facility] 2021-11-09 2021-11-09 Emergency Kings, K [facility] 1.2.840.114 [id number] Univers 15:15:00 18:32:00 Mckenzie PEREZ 350.1.13.10 i ty [facility] 4.2.7.2.686 [facility] [id number] [place] [address] Branch 2021-11-05 2021-11-05 Emergency X [facility] ERT [id number] Univers 00:44:00 06:53:00 MIHAELA baugh [facility] 2021-11-05 2021-11-05 Emergency [facility] [id number] Univers 00:44:00 06:53:00 Mihaela PEREZ 350.1.13.10 ity [facility] 4.2.7.2.686 [facility] [id number] [place] [address] Branch 2021-11-04 2021-11-04 Transition RIVAS Feliciano 1.2.840.114 [id number] Univers 00:00:00 00:00:00 of Jennifer DUQUE 350.1.13.10 it vashti sanz MARIE 4.2.7.2.686 Noe beckett [id number] [facility] 403 Branch 2021-11-02 2021-11-03 Outpatient X BRAYDON [facility] DARIUS [id number] Univers 22:35:00 15:46:00 OC [facility] 2021-10-27 2021-10-29 Outpatient X DERRICK [facility] DARIUS [id number] Univers 17:41:00 14:03:00 ANA MARIA [facility] 2021-07-21 2021-07-21 Outpatient Wong_H VFP VFP [id number] [facility] 06:58:00 06:58:00 [id number] Family Practic e 2020-10-30 2020-11-05 Inpatient EM ANNEL CarreraPM [facility] [id number] - [facility] 16:50:00 13:52:00 Fede [id number] [facility] 2020-10-31 2020-10-31 Outpatient AMELIA Carrera LABO [id number] [facility] 08:22:00 08:22:00 Fede 7[address]73 [facility] 2020-10-28 2020-10-28 Hospital Radiology [facility] 1.2.840.114 [id number] 08:30:17 23:59:00 Encounter Sera 350.1.13.10 [place] 4.2.7.2.686 [place] [id number] [id number] 2020-10-12 2020-10-12 Outpatient R [facility] [id number] Univers 14:00:00 14:50:48 PERLA [facility] 2020-10-06 2020-10-06 [facility] 1.2.840.114 [id number] 10:43:51 11:59:29 Visit Gina Perez 350.1.13.10 [place] 4.2.7.2.686 Professio [id number] [address] 2020-08-19 2020-08-19 Outpatient MAURILIO, PEGGY OPLA [id number] [facility] 07:13:00 07:13:00 DOES_NOT [id number] [facility] 2020-08-10 2020-08-14 Inpatient AMELIA Carey INTE.02 [id number] 202 [facility] 09:09:00 18:56:00 [place] [id number] [facility] 2017-10-23 2017-10-27 Discharged 1 BROOKE, [facility] [id number] 17:29:00 16:54:00 Inpatient ALEXIS 88 Luke s [facility] 2017-04-03 2017-04-04 Departed ER TAVON, [facility] [id number] 23:17:00 03:53:00 Emergency LAIRD 56 Luke s Room [facility] 2017-03-05 2017-03-09 Discharged ER PHILIP, [facility] [id number] 06:54:00 10:58:00 Inpatient NICHELLE 44 Luke s (obs) Patient [facility] 2017-01-04 2017-01-05 Discharged [facility] [id number] 10:33:00 18:56:00 Inpatient 61 Luke s (obs) [facility] Results Test Description Test Time Test Comments Results Result Comments Source TROPONIN I 2021-11-09 20:57:59 Test Item Value Reference Range Interpretation Comme nts TROPONIN I (test code = 0.017 ng/mL See_Comment [Au tomated message] The 7110577930) system which ge nerated this result tra [...] biotin. Lab Interpretation Normal (test code = 62291-3) [facility] [id number] 20:54:59 Test Item Value Reference Range Interpretation Comments NT-proBNP (test code 6490 pg/mL See_Comment H [Autom ated = 8874817207) message] The system which generated this result transmitted reference range : <=125. The reference range was not used to interpret this result as normal/abnormal . DIANE (test code = DIANE) Biotin has been reported to cause a negative bias, interpret results relative to patient's use of biotin. Lab Interpretation Abnormal (test code = 24350-2) [facility] 20:46:35 Test Item Value Reference Range Interpretation Comments MAGNESIUM (test code = 9867309548) 1.5 mg/dL 1.7-2.4 L Lab Interpretation (test code = Abnormal 78632-3) [facility] (92501)2021-11-09 20:46:34 Test Item Value Reference Range Interpretation Comments NA (test code = 140 mmol/L 135-145 6701516606) K (test code = 3.9 mmol/L 3.5-5.0 2196202728) CL (test code = 111 mmol/L 98-108 H 4669698287) CO2 TOTAL (test code = 16 mmol/L 23-31 L 7411079846) AGAP (test code = 2-16 2643495512) BUN (test code = 14 mg/dL 7-23 1916708433) GLUCOSE (test code = 189 mg/dL 70-110 H 4110205433) CREATININE (test code = 0.66 mg/dL 0.60-1.25 8592794181) TOTAL BILI (test code = 0.8 mg/dL 0.1-1.7 4325866275) CALCIUM (test code = 8.3 mg/dL 8.6-10.6 L 6835618009) T PROTEIN (test code = 6.5 g/dL 6.3-8.2 4719447078) ALBUMIN (test code = 3.3 g/dL 3.5-5.0 L 0303923053) ALK PHOS (test code = 136 U/L 34-122 H 9945451311) ALTv (test code = 18 U/L 5-50 1742-6) AST(SGOT) (test code = 26 U/L 13-40 5968647026) eGFR (test code = mL/min/1.73m2 4756507549) DIANE (test code = DIANE) Association of [...] tests). Lab Interpretation Abnormal (test code = 22863-2) [facility] WITH [id number] 20:33:30 Test Item Value Reference Range Interpretation Comments WBC (test code = See_Comment [Automated 7668-2) message] The sy stem which generated this [...] RDW-SD (test code = 45.4 fL 38.5-51.6 88542-4) RDW-CV (test code = 14.2 % 12.1-15.4 788-0) PLT (test code = See_Comment [Automated 777-3) message] The sy stem which generated this result transmitted reference range : 150 - 328 10*3/ ?L. The reference r batsheva was not used to interpret this result as normal/abnormal . MPV (test code = 9.8 fL 9.8-13.0 26201-3) NRBC/100 WBC (test See_Comment [Automat ed code = 7672271348) message] The system which generated this result transmitted reference range : 0.0 - 10.0 /100 WBCs. The refer ence range was not u sed to interpret th is result as normal/abnormal . NRBC x10^3 (test code <0.01 See_Comment [Auto mated = 1026761647) message] The s ystem which generated this result transmitted reference range : 10*3/?L. The reference range was not used to interpret this result as normal/abnormal . GRAN MAT (NEUT) % 62.3 % (test code = 770-8) IMM GRAN % (test code 0.80 % = 0828862680) LYMPH % (test code = 25.1 % 736-9) MONO % (test code = 6.7 % 5905-5) EOS % (test code = 4.7 % 713-8) BASO % (test code = 0.4 % 706-2) GRAN MAT x10^3(ANC) 4.76 10*3/uL 1.99-6.95 (test code = 3470839534) IMM GRAN x10^3 (test 0.06 10*3/uL 0.00-0.06 code = 8528536943) LYMPH x10^3 (test code 1.92 10*3/uL 1.09-3.23 = 731-0) MONO x10^3 (test code 0.51 10*3/uL 0.36-1.02 = 742-7) EOS x10^3 (test code = 0.36 10*3/uL 0.06-0.53 711-2) BASO x10^3 (test code 0.03 10*3/uL 0.01-0.09 = 704-7) Lab Interpretation Abnormal (test code = 58572-0) [facility]2021-[facility]-09 20:27:39 Test Item Value Reference Range Interpretation Comments POCT GLU (test code = 6312977381) 190 mg/dL 70-110 H Lab Interpretation (test code = Abnormal 49698-0) [facility] [id number] 11:52:00 Test Item Value Reference Range Interpretation Comments GLUCOSE BEDSIDE TESTING (test code = 92 mg/dL 70-110 N GLUBED) GLUCOSE BEDSIDE [id number] 08:05:00 Test Item Value Reference Range Interpretation Comments GLUCOSE BEDSIDE TESTING (test code = 62 mg/dL 70-110 L GLUBED) GLUCOSE BEDSIDE [id number] 20:40:00 Test Item Value Reference Range Interpretation Comments GLUCOSE BEDSIDE TESTING (test code 105 mg/dL 70-110 N = GLUBED) GLUCOSE BEDSIDE [id number] 17:02:00 Test Item Value Reference Range Interpretation Comments GLUCOSE BEDSIDE TESTING (test code 128 mg/dL 70-110 H = GLUBED) GLUCOSE BEDSIDE [id number] 16:37:00 Test Item Value Reference Range Interpretation Comments GLUCOSE BEDSIDE TESTING (test code 105 mg/dL 70-110 N = GLUBED) GLUCOSE BEDSIDE [id number] 08:17:00 Test Item Value Reference Range Interpretation Comments GLUCOSE BEDSIDE TESTING (test code = 88 mg/dL 70-110 N GLUBED) GLUCOSE BEDSIDE [id number] 19:45:00 Test Item Value Reference Range Interpretation Comments GLUCOSE BEDSIDE TESTING (test code 115 mg/dL 70-110 H = GLUBED) GLUCOSE BEDSIDE [id number] 18:13:00 Test Item Value Reference Range Interpretation Comments GLUCOSE BEDSIDE TESTING (test code = 74 mg/dL 70-110 N GLUBED) GLUCOSE BEDSIDE [id number] 17:29:00 Test Item Value Reference Range Interpretation Comments GLUCOSE BEDSIDE TESTING (test code = 44 mg/dL 70-110 LL GLUBED) GLUCOSE BEDSIDE [id number] 12:26:00 Test Item Value Reference Range Interpretation Comments GLUCOSE BEDSIDE TESTING (test code = 96 mg/dL 70-110 N GLUBED) GLUCOSE BEDSIDE [id number] 08:21:00 Test Item Value Reference Range Interpretation Comments GLUCOSE BEDSIDE TESTING (test code = 77 mg/dL 70-110 N GLUBED) GLUCOSE BEDSIDE [id number] 20:12:00 Test Item Value Reference Range Interpretation Comments GLUCOSE BEDSIDE TESTING (test code = 91 mg/dL 70-110 N GLUBED) GLUCOSE BEDSIDE [id number] 16:42:00 Test Item Value Reference Range Interpretation Comments GLUCOSE BEDSIDE TESTING (test code 106 mg/dL 70-110 N = GLUBED) GLUCOSE BEDSIDE [id number] 11:49:00 Test Item Value Reference Range Interpretation Comments GLUCOSE BEDSIDE TESTING (test code = 89 mg/dL 70-110 N GLUBED) GLUCOSE BEDSIDE [id number] 08:22:00 Test Item Value Reference Range Interpretation Comments GLUCOSE BEDSIDE TESTING (test code = 68 mg/dL 70-110 L GLUBED) GLUCOSE BEDSIDE [id number] 20:05:00 Test Item Value Reference Range Interpretation Comments GLUCOSE BEDSIDE TESTING (test code 137 mg/dL 70-110 H = GLUBED) GLUCOSE BEDSIDE [id number] 16:42:00 Test Item Value Reference Range Interpretation Comments GLUCOSE BEDSIDE TESTING (test code = 98 mg/dL 70-110 N GLUBED) GLUCOSE BEDSIDE [id number] 11:13:00 Test Item Value Reference Range Interpretation Comments GLUCOSE BEDSIDE TESTING (test code 118 mg/dL 70-110 H = GLUBED) GLUCOSE BEDSIDE [id number] 07:37:00 Test Item Value Reference Range Interpretation Comments GLUCOSE BEDSIDE TESTING (test code 140 mg/dL 70-110 H = GLUBED) COMPREHENSIVE METABOLIC [id number] 06:34:00 Test Item Value Reference Range Interpretation [...] TOTAL (test code = ALKP) CBC W/AUTO [id number] 06:25:00 Test Item Value Reference Range Interpretation [...] DIFF/SCN CRITERIA = MDIFF) - CT ABDOMEN W/[id number] 03:09:[address] [facility] [facility] 1960 Sex: M Name: FAITH VANCE [facility] : 1960 Age/S: 60 / M [address] [address] Unit #: [id number] Loc: [place] [address] Phys: Fede Carrera DO Acct: [id number] Dis Date: Status: ADM IN PHONE #: [phone] Exam Date: 10/31/20201919 FAX #: Reason: NAUSEA, VOMITING, DIARRHEA EXAMS: CPT: [id number] CT ABDOMEN W/CONTRAST 36528 EXAM: - CT ABDOMEN W/CONTRAST LOCATION: H61 CLINICAL HISTORY/INDICATION: NAUSEA, VOMITING, DIARRHEA COMPARISON: KUB 10/31/2020. CT 08/23/2020. TECHNIQUE: Axial CT images of the abdomen were obtained from with IV contrast administration. Coronal and sagittal reformations werereconstructed from the axial data set. Postcontrast images were acquired in the portal venous phase This examination was performed according to our departmental dose optimization program, which includes automated exposure control, adjustment of the mA and/or kV according to patient size, and/or use ofiterative reconstruction technique. FINDINGS: LOWER THORAX: Moderate bilateral [...] VANCE : 1960 Age/S: 60 / M [address] Unit #: [id number] Loc: [place] [address] Phys: Fede Garcia DO Acct: [id number] Dis Date: Status: ADM IN PHONE #: [phone] Exam Date: 10/31/20201919 FAX #: Reason: NAUSEA, VOMITING, DIARRHEA EXAMS: CPT: [id number] CT ABDOMEN W/CONTRAST 92729 <Continued> small bowel wall thickening. The appendix is normal. There is no evidence of colitis no colonic obstruction. Evaluation of the distal sigmoid colon is limited due to streak artifact from barium. EXTERNAL SOFT TISSUE: No abnormalities. BONES: Postsurgical changes of median sternotomy. Noacute fractures. Posterior laminectomies at L4-L5 with posterior fusion. Posterior fusion construct c onsists of a left-sided transpedicular screw at L4, [...] 11/01/2020 (311) PAGE 2 Signed ReportGLUCOSE BEDSIDE [id number] 21:34:00 Test Item Value Reference Range Interpretation Comments GLUCOSE BEDSIDE TESTING (test code 161 mg/dL 70-110 H = GLUBED) GLUCOSE BEDSIDE [id number] 17:32:00 Test Item Value Reference Range Interpretation Comments GLUCOSE BEDSIDE TESTING (test code 136 mg/dL 70-110 H = GLUBED) - XR ABDOMEN 1 [id number] 12:44:[address] [facility] [facility] : 1960 Sex: M Name: FAITH VANCE [facility] : 1960 Age/S: 60 / M [address] [address] Unit #: [id number] Loc: [place] [address] Phys: Fede Carrera DO Acct: [id number] Dis Date: Status: ADM IN PHONE #: [phone] Exam Date: 10/31/2020 1227 FAX #: Reason: Abdominal pain in the lower qudarants EXAMS: CPT: [id number] XR ABDOMEN 1 V 58083 Fluoro Time: DAP (Gy m2): Air Kerma [...] 1Signed Report Name: FAITH VANCE [facility] : 1960 Age/S: 60 / M [address] U nit #: [id number] Loc: [place] [address] Phys: Fede Carrera DO Acct: [id number] Dis Date: Status: ADM IN PHONE #: [phone] Exam Date: 10/31/2020 1227 FAX #: Reason: Abdominal pain in the lower qudarants EXAMS: CPT: [id number] XR ABDOMEN 1 V 28687 Fluoro Time: DAP (Gy m2): Air Kerma (mGy): <Continued> Technologist: Cecelia Arias RT(R) Trnscb Date/Time: 10/31/2020 (7632) JhonAGV OrigPrint D/T: S: 10/31/2020 (9907) PAGE 2 Signed Report GLUCOSE BEDSIDE [id number] 11:58:00 Test Item Value Reference Range Interpretation Comments GLUCOSE BEDSIDE TESTING (test code 105 mg/dL 70-110 N = GLUBED) GLUCOSE BEDSIDE [id number] 08:01:00 Test Item Value Reference Range Interpretation Comments GLUCOSE BEDSIDE TESTING (test code 106 mg/dL 70-110 N = GLUBED) [id number] 22:46:00 Test Item Value Reference Range Interpretation [...] yby method. Completed by Nursing: NOGLUCOSE BEDSIDE [id number] 21:55:00 Test Item Value Reference Range Interpretation Comments GLUCOSE BEDSIDE TESTING (test code 119 mg/dL 70-110 H = GLUBED) [id number] 19:33:00 Test Item Value Reference Range Interpretation [...] method. Completed by Nursing: NOCoronavirus 2019 nCoV [id number] 18:46:00 Test Item Value Reference Range Interpretation Comments Coronavirus 2019 nCoV Negative Negative Per ma nufacturer, Bedside (test code = negativ e results should [id number]) be treated aspresumptive a nd, if inconsistent [...] with COVID-19. Spec Comments: NNT PRO-BRAIN NATRIURETIC [id number] 15:51:00 Test Item Value Reference Range Interpretation Comments NT PRO-BRAIN NATRIURETIC PEPTI 6079 PG/ML 0-100 H (test code = PROBNP) Completed by Nursing: [id number] 15:51:00 Test Item Value Reference Range Interpretation [...] yby method. Completed by Nursing: NOBASIC METABOLIC [id number] 15:51:00 Test Item Value Reference Range Interpretation [...] Completed by Nursing: NO- XR CHEST 1 [id number] 15:42:[address] [facility] : 1960 Sex: M Name: FAITH VANCE [facility] : 1960 Age/S: 60 / M [address] Unit #: [id number] Loc: [place] [address] Phys: Todd Jacobo MD Acct: [id number] Dis Date: Status: PRE ER PHONE #:[phone] Exam Date: 10/30/2020 4692 FAX #: Reason: chest pain EXAMS: CPT: [id number] XR CHEST 1 V 58781 Fluoro Time: DAP (Gy m2): Air Kerma (mGy): Single View Chest. Location: S17 Clinical Indication: 60-year-old with chest pain Comparison: August 10, 2020 Findings: An AP view of the chest was obtained. Prior sternotomy. There is mild enlargement of the heart. There is hazy opacification of the perihilar and lower lungs, new from prior exam. There may be small layering effusions. No pneumothorax.A left subclavian approach dual lead pacemaker is present. No acute osseous abnormality. Impression: Perihilar and lower lung hazy opacification may be congestive heart failure or bibasilar pneumonia.There may be small layering effusions. at 1542 Reported and signed by: Lopez Ruiz M.D. CC: Nika Martin MD; Todd Jacobo MD PAGE 1 Signed Report Name: FAITH VANCE [facility] : 1960 Age/S: 60 / M [address] [place] [address] Unit #: [id number] Loc: [place] [address] Phys: Todd Jacobo MD Acct: [id number] Date: Status: PRE ER PHONE #: [phone] Exam Date: 10/30/2020 1524 FAX #: Reason: chest painEXAMS: CPT: [id number] XR CHEST 1 V 04177 Fluoro Time: DAP (Gy m2): Air Kerma (mGy): <Continued> Technologist: Kim Andrews RT(R)(CT) Trnscb Date/Time: 10/30/2020 (1542) [email or web address] Orig Print D/T: S: 10/30/2020 (1782) PAGE 2 Signed ReportCBC W/O [id number] 15:31:00 Test Item Value Reference Range Interpretation [...] 9.70 fL 7.0-9.6 H MPV) BASIC METABOLIC [id number] 21:42:00 Test Item Value Reference Range Interpretation [...] 9.6 mg/dL 8.0-10.5 N CA) HEPATIC FUNCTION [id number] 21:42:00 Test Item Value Reference Range Interpretation [...] 114 IUnit/L 20-125 N code = ALKP) [id number] 21:42:00 Test Item Value Reference Range Interpretation Comments LIPASE (test code = LIP) 70 U/L 13-57 H [id number] 21:42:00 Test Item Value Reference Range Interpretation [...] by method. UA RFLX MICR CULT IF [id number] 21:37:00 Test Item Value Reference Range Interpretation [...] INDWELLING CATH (CEDENO)Cath Status: Under 72 hoursPROTHROMBIN [id number] 21:35:00 Test Item Value Reference Range Interpretation [...] (to prevent recurrent infar ct). THROMBOPLASTIN TIME [id number] 21:35:00 Test Item Value Reference Range Interpretation Comments THROMBOPLASTIN TIME 41.7 Seconds 25.0-39.5 H Therape utic Range: PARTIAL (test code = 50.4 - 88.3 Seconds PTT) Effective 09/04/2018 CBC W/AUTO [id number] 21:29:00 Test Item Value Reference Range Interpretation [...] = MDIFF) - CT ABD PELVIS W/O [id number] 20:49:00 [facility] : 1960 Sex: M Name: FAITH VANCE [facility] : 1960 Age/S: 60 / M [address] [place] [address] Blvd Unit #: [id number] Loc: [place] [address] Phys: Gisel Eugene Supriya MAINTAINER CENTRAL OFFICE Acct: [id number] Dis Date: Status: REG ER PHONE #: [phone] Exam Date: 08/23/20202024 FAX #: [phone] Reason: DIFFUSE ABDOMINAL PAIN EXAMS: CPT CODE: [id number] CT ABD PELVIS W/O CONT 48486 Clinical indication: Diffuse abdominal pain. Contrast - No IV contrast was given. No oral contrast was given Noncontrast phase - abdomen and pelvis including all of kidneys Reconstructions - coronal and sagittal planes Automated exposure reduction(Auto mA/Smart mA) was utilized in compliance with ACR Image [employer] with DLP of 694.8 mGy-cm. COMPARI SON: Prior CT abdomen and pelvis dated 01/03/2019. FINDINGS: Statements: Lack of intravenous contrastcompromises evaluation of abdominopelvic organs and vasculature. Lack of oral contrast compromises evaluation of bowel. Thoracic: Small left pleural effusion. Linear atelectasis/scarring in the right lung base. Hepatobiliary: Diffuse hepatic steatosis. Surgical removal of the gallbladder. Mild prominence of the proximal common bile duct, likely due to increased capacitance. Pancreas: Normal. Spleen:Normal. Adrenals: Normal. Genitourinary: 2.3 x 2.2 cm [...] 1 Signed Report (CONTINUED) [facility] 1960 Age/S: 60 / M [address] [place] [address] Unit #: [id number] Loc: [place] [address] Phys: Gisel Eugene Acct: [id number] Dis Date: Status: REG ER PHONE #: [phone] Exam Date: 08/23/20202024 FAX #: [phone] Reason: DIFFUSE ABDOMINAL PAINEXAMS: CPT CODE: [id number] CT ABD PELVIS W/O CONT 91920 <Continued> Peritoneum/Other: No extraluminal air. No extraluminal [...] L5 levels. 7. Small left pleural effusion. Electronically Signed by Maria Eugenia Katz on08/23/2020 at 2048 Reported and signed by: Irene Katz M.D. CC: Alf Hope DO; Nika Martin MD; Gisel Eugene Technologist:RT Fanta(R)(CT) CTDI: DLP: Trnscb Date/Time: 08/23/2020 (2048) [email or web address] Orig Print D/T: S: 08/23/2020 (2051) PAGE 2 Signed ReportBASIC METABOLIC [id number] 07:51:00 Test Item Value Reference Range Interpretation [...] >3 months. [Automated mess age] The system Inta[employer] generated this result transmitted ref erence range: >=60. Th e reference range was not used to int erpret this result as normal/abnormal . CREATININE (test 1.20 mg/dL 0.7-1.3 N code = CREAT) BUN/CREATININE RATIO 22.1 10-20 H (test code = BUN/CREA) CALCIUM (test code = 8.6 mg/dL 8.5-10.1 N CA) [id number] 16:58:00 Test Item Value Reference Range Interpretation Comments GLUBED (test code = 159 MG/DL 70-110 H Performe d by certified GLUBED) dictaphone operator at [facility] [id number] 11:58:00 Test Item Value Reference Range Interpretation Comments GLUBED (test code = 149 MG/DL 70-110 H Performe d by certified GLUBED) dictaphone operator at [facility] BASIC METABOLIC [id number] 08:00:00 Test Item Value Reference Range Interpretation [...] 9.9 mg/dL 8.0-10.5 N CA) CBC W/AUTO [id number] 07:08:00 Test Item Value Reference Range Interpretation [...] DIFF REQUIRED (test code NO = MDIFF) [id number] 05:21:00 Test Item Value Reference Range Interpretation Comments GLUBED (test code = 150 MG/DL 70-110 H Performe d by certified GLUBED) dictaphone operator at [facility] [id number] 21:13:00 Test Item Value Reference Range Interpretation Comments GLUBED (test code = 129 MG/DL 70-110 H Performe d by certified GLUBED) dictaphone operator at [facility] [id number] 16:48:00 Test Item Value Reference Range Interpretation Comments GLUBED (test code = 116 MG/DL 70-110 H Performe d by certified GLUBED) dictaphone operator at [facility] [id number] 12:18:00 Test Item Value Reference Range Interpretation Comments GLUBED (test code = 136 MG/DL 70-110 H Performe d by certified GLUBED) dictaphone operator at [facility] [id number] 12:18:00 Test Item Value Reference Range Interpretation Comments GLUBED (test code = 151 MG/DL 70-110 H Performe d by certified GLUBED) dictaphone operator at [facility] CBC W/AUTO [id number] 07:32:00 Test Item Value Reference Range Interpretation [...] (test code NO = MDIFF) BASIC METABOLIC [id number] 07:29:00 Test Item Value Reference Range Interpretation [...] code = 9.0 mg/dL 8.0-10.5 N CA) [id number] 05:19:00 Test Item Value Reference Range Interpretation Comments GLUBED (test code = 135 MG/DL 70-110 H Performe d by certified GLUBED) dictaphone operator at [facility] [id number] 20:31:00 Test Item Value Reference Range Interpretation Comments GLUBED (test code = 189 MG/DL 70-110 H Performe d by certified GLUBED) dictaphone operator at [facility] [id number] 17:41:00 Test Item Value Reference Range Interpretation Comments GLUBED (test code = 140 MG/DL 70-110 H Performe d by certified GLUBED) dictaphone operator at [facility] - CTA CHEST FOR [id number] 13:48:00 [facility] : 1960 Sex: M Name: FAITH VANCE [facility] : 1960 Age/S: 60 / M [address] [place] [address] Unit #: [id number] Loc: [place] [address] Phys: Gina Gonzalez [employer] Acct: [id number] Dis Date: Status: ADM IN PHONE #: [phone] Exam Date: 08/12/2020 09 FAX #: [phone] Reason: CP, elevated D-dimer EXAMS: CPT CODE: [id number] [place] [address] PROCEDURE: CTA CHEST INDICATION: CP, elevated D-dimer; [...] 1 Signed Report (CONTINUED) Name: FAITH VANCE [facility] [place] : 1960 Age/S: 60 / M [address] [place] [address] Unit #: [id number] Loc: [place] [address] Phys: Gina Gonzalez NP Acct: [id number] Dis Date: Status: ADM IN PHONE #: [phone] Exam Date: 08/12/2020911 FAX #: [phone] Reason: CP, elevated D-dimer EXAMS: CPT CODE: [id number] [place] [address] <Continued> contrastenhancement. No acute abnormality demonstrated. MUSCULOSKELETAL: Healed median sternotomy. No acute skeletal abnormality. IMPRESSION: 1. Negative for pulmonary embolic disease within limitations noted.2. Atherosclerosis. 3. Coronary arterial calcifications with prior coronary arterial stents and CABG. 4. Interstitial edema. No consolidation. 5. Small bilateral pleural effusions. SL: [id number] at 1348 Reported and signed by:Christiano Piña M.D. CC: Johnie Montanez MD; Gina Gonzalez NP; Nika Martin MD Techno logist:Kate Camacho, RT(R)(CT) CTDI: DLP: Trnscb Date/Time: 08/12/2020 (1348) Ashley Orig Print D/T: S: 08/12/2020 (2363) PAGE 2 Signed ReportGLUBED 2020-08-12 11:38:00 Test Item Value Reference Range Interpretation Comments GLUBED (test code = 146 MG/DL 70-110 H Performe d by certified GLUBED) dictaphone operator at [facility] CBC W/AUTO [id number] 09:17:00 Test Item Value Reference Range Interpretation [...] (test code NO = MDIFF) BASIC METABOLIC [id number] 08:28:00 Test Item Value Reference Range Interpretation [...] code = 8.3 mg/dL 8.0-10.5 N CA) [id number] 08:28:00 Test Item Value Reference Range Interpretation Comments PHOSPHOROUS (test code = PHOS) 3.6 MG/DL 2.5-4.9 N [id number] 08:28:00 Test Item Value Reference Range Interpretation Comments MAGNESIUM (test code = MAG) 1.94 mg/dL 1.80-2.40 N [id number] 07:16:00 Test Item Value Reference Range Interpretation Comments GLUBED (test code = 170 MG/DL 70-110 H Performe d by certified GLUBED) dictaphone operator at [facility] [id number] 07:16:00 Test Item Value Reference Range Interpretation Comments GLUBED (test code = 137 MG/DL 70-110 H Performe d by certified GLUBED) dictaphone operator at [facility] [id number] 17:01:00 Test Item Value Reference Range Interpretation Comments GLUBED (test code = 88 MG/DL 70-110 N Performe d by certified GLUBED) dictaphone operator at [facility] [id number]-[id number] 16:56:00 Test Item Value Reference Range Interpretation Comments ACT-ISTAT (test code 186 SEC 74-137 H Perform ed by certified = ACTI) dictaphone operator at [facility] GPT-[id number] 15:03:00 Test Item Value Reference Range Interpretation Comments ACT-ISTAT (test code 235 SEC 74-137 H Perform ed by certified = ACTI) dictaphone operator at [facility] [id number] 11:33:00 Test Item Value Reference Range Interpretation Comments GLUBED (test code = 97 MG/DL 70-110 N Performe d by certified GLUBED) dictaphone operator at [facility] [id number] 06:54:00 Test Item Value Reference Range Interpretation Comments GLUBED (test code = 136 MG/DL 70-110 H Performe d by certified GLUBED) dictaphone operator at [facility] BASIC METABOLIC [id number] 06:00:00 Test Item Value Reference Range Interpretation [...] COMMENTS: To be done morning of Heart [id number] 06:00:00 Test Item Value Reference Range Interpretation Comments PHOSPHOROUS (test code = PHOS) 4.1 MG/DL 2.5-4.9 N COMMENTS: To be done morning of Heart [id number] 06:00:00 Test Item Value Reference Range Interpretation Comments MAGNESIUM (test code = MAG) 1.74 mg/dL 1.80-2.40 L COMMENTS: To be done morning of Heart CathTHROMBOPLASTIN TIME [id number] 05:55:00 Test Item Value Reference Range Interpretation Comments THROMBOPLASTIN TIME 37.9 Seconds 25.0-39.5 N Therape utic Range: PARTIAL (test code = 50.4 - 88.3 Seconds PTT) Effective 09/04/2018 CBC W/AUTO [id number] 05:44:00 Test Item Value Reference Range Interpretation [...] COMMENTS: To be done morning of Heart [id number] 05:44:00 Test Item Value Reference Range Interpretation Comments GLUBED (test code = 92 MG/DL 70-110 N Performe d by certified GLUBED) dictaphone operator at [facility] HGBA1C%2020-08-10 17:22:00 Test Item Value Reference Range Interpretation Comments HGBA1C% (test code = HGBA1C%) 6.6 %A1C 4.8-6.0 H [id number] 17:17:00 Test Item Value Reference Range Interpretation Comments GLUBED (test code = 118 MG/DL 70-110 H Performe d by certified GLUBED) dictaphone operator at [facility] TSH REFLEX TO [id number] 15:37:00 Test Item Value Reference Range Interpretation Comments TSH REFLEX TO FT4 (test code = 3.19 IU/mL 0.42-5.47 N TSHREFLEX) [id number] 15:37:00 Test Item Value Reference Range Interpretation [...] y by method. COVID 19 Asymptomatic IH [id number] 11:35:00 Test Item Value Reference Range Interpretation [...] y tests. COMMENTS: If not done this kyeqwecjjYMTYJFJF-[id number] 11:31:00 Test Item Value Reference Range Interpretation [...] titative results may babak y by method. [id number] 11:28:00 Test Item Value Reference Range Interpretation Comments D-DIMER (test 1089 ng/mlFEU See_Comment HH Critical resu lt called to code = Rima GERMAN DDIMER) G.LAB.JJ1 at 04 1808/10/20Nurse r ead [...] to interpret this result as normal/abnormal . [id number] 10:48:00 Test Item Value Reference Range Interpretation Comments GLUBED (test code = 158 MG/DL 70-110 H Performe d by certified GLUBED) dictaphone operator at [facility] B-TYPE NATRIURETIC [id number] 08:19:00 Test Item Value Reference Range Interpretation Comments B-TYPE NATRIURETIC PEPTIDE (test 508.0 PG/ML 0-100 H code = BNP) BASIC METABOLIC [id number] 08:11:00 Test Item Value Reference Range Interpretation [...] 9.1 mg/dL 8.0-10.5 N CA) HEPATIC FUNCTION [id number] 08:11:00 Test Item Value Reference Range Interpretation [...] 174 IUnit/L 20-125 H code = ALKP) [id number] 08:11:00 Test Item Value Reference Range Interpretation Comments MAGNESIUM (test code = MAG) 1.80 mg/dL 1.80-2.40 N [id number] 08:11:00 Test Item Value Reference Range Interpretation [...] may babak y by method. BASIC METABOLIC [id number] 08:09:00 Test Item Value Reference Range Interpretation [...] code = CA) mg/dL 8.0-10.5 HEPATIC FUNCTION [id number] 08:09:00 Test Item Value Reference Range Interpretation Comments TOTAL PROTEIN (test code = PROT) g/dL 6.4-8.2 ALBUMIN (test code = ALB) g/dL 3.4-5.0 BILIRUBIN TOTAL (test code = BILT) mg/dL 0.0-1.0 BILIRUBIN DIRECT (test code = BILD) MG/DL 0.0-0.30 SGOT/AST (test code = AST) IUnit/L 15-37 SGPT/ALT (test code = ALT) IUnit/L 30-65 ALKALINE PHOSPHATASE TOTAL (test IUnit/L 20-125 code = ALKP) [id number] 08:09:00 Test Item Value Reference Range Interpretation Comments MAGNESIUM (test code = MAG) mg/dL 1.80-2.40 [id number] 08:09:00 Test Item Value Reference Range Interpretation [...] results may babak y by method. PROTHROMBIN [id number] 08:06:00 Test Item Value Reference Range Interpretation [...] (to prevent recurrent infar ct). THROMBOPLASTIN TIME [id number] 08:06:00 Test Item Value Reference Range Interpretation Comments THROMBOPLASTIN TIME 44.5 Seconds 25.0-39.5 H Therape utic Range: PARTIAL (test code = 50.4 - 88.3 Seconds PTT) Effective 09/04/2018 CBC W/AUTO [id number] 07:58:00 Test Item Value Reference Range Interpretation [...] NO = MDIFF) - XR CHEST 1 [id number] 07:57:00 [facility] 1960 Sex: M FAX: Todd Jacobo MD [phone] [place]: St: REG FAX: Martínez Dash NP [phone] Name: FAITH VANCE [facility] : 1960 Age/S: 60/M [address] [place] [address] Blvd Unit #: [id number] Loc: [place] [address] Phys: Martínez Dash NP Acct: [id number] Dis Date: Status: REG ER PHONE #: [phone] Exam Date: 08/10/2020 0753 FAX #: [phone] Reason: Chest Pain EXAMS: CPT CODE: [id number] XR CHEST 1 V 66846 Chest single view 08/10/2020 HISTORY: Chest pain. Comparison is made to 05/21/2018 FINDINGS: Pacemaker and midline sternotomy wires are stable. The lungs are hypoinflated. No consolidation or pleural effusion is present. No vascular congestion or interstitial edema is present. Heart size is mildlyenlarged. Aorta is unchanged. IMPRESSION: Hypoinflated lungs. No acute cardiopulmonary process. SL: [id number] at 0757 Reported and signed by: Khai Kruse M.D. CC: Todd Jacobo MD; Martínez Dash NP Technologist: RT Ann(R) Trnscrd Date/Time/By: 08/10/2020 (0757) : By: [email or web address] Orig Print D/T: S: 08/10/2020 (0800) PAGE 1 Signed Report COMPREHENSIVE METABOLIC [id number] 18:02:00 Test Item Value Reference Range Interpretation [...] 50-136 H TOTAL (test code = ALKP) [id number] 18:02:00 Test Item Value Reference Range Interpretation Comments AMYLASE (test code = SERGIO) 82 Unit/L 25-115 N [id number] 18:02:00 Test Item Value Reference Range Interpretation Comments LIPASE (test code = LIP) 185 Unit/L 114-286 N COMPREHENSIVE METABOLIC [id number] 17:56:00 Test Item Value Reference Range Interpretation [...] TOTAL Unit/L 50-136 (test code = ALKP) [id number] 17:56:00 Test Item Value Reference Range Interpretation Comments AMYLASE (test code = SERGIO) Unit/L 25-115 [id number] 17:56:00 Test Item Value Reference Range Interpretation Comments LIPASE (test code = LIP) 185 Unit/L 114-286 N CBC W/AUTO [id number] 17:46:00 Test Item Value Reference Range Interpretation [...] CRITERIA MDIFF) - CT ABD PELVIS W/O [id number] 17:46:00 Name: FAITH VANCE : 1960 Age/S: 58 / M [address] [place] Unit #: [id number] Loc: [place] [address] Phys: Nila Chester MD Acct: [id number] Dis Date: Status: REGER PHONE #: [phone] Exam Date: 01/03/2019 1730 FAX #: Reason: llq EXAMS: CPT: [id number] CT ABDPELVIS W/O CONT 92466 Location of dictation: B2 CT abdomen and [...] (CONTINUED) Name: FAITH VANCE : 1960 Age/S: 58 / M [address] [place] Unit #: [id number] Loc: [place] [address] Phys: Nila Chester MD Acct: [id number] Dis Date: Status: REG ER PHONE #: [phone] Exam Date: 01/03/2019 173 FAX #: Reason: llq EXAMS: CPT: [id number] CT ABD PELVIS W/O CONT 14891 <Continued> ElectronicallySigned by Maria Eugenia Willett on 01/03/2019 at 1746 Reported and signed by: Renuka Willett M.D. CC: Nila Chester MD Technologist:Tavon Jurado, RT(R)(CT)(MRI) CTDI: DLP: Trnscb Date/Time: 01/03/2019 (7296) [email or web address] Orig Print D/T: S: 01/03/2019 (0839) PAGE 2 Signed ReportBedside [id number] 11:47:00 Test Item Value Reference Range Interpretation Comments Bedside Glucose (test code = 08629-4) 155 70-120 H Meter ID: [id number] Scott & [facility] Waxahachieodium Roxer0099-45-07 08:31:00 Test Item Value Reference Range Interpretation Comments Sodium Level (test code = 2951-2) 139 136-145 [facility] [id number] 08:31:00 Test Item Value Reference Range Interpretation Comments Potassium Level (test code = 2823-3) 4.0 3.5-5.1 [facility] HospitalChloride [id number] 08:31:00 Test Item Value Reference Range Interpretation Comments Chloride Level (test code = 2075-0) 106 98-107 [facility] HospitalCarbon Dioxide Jkrbj6385-25-31 08:31:00 Test Item Value Reference Range Interpretation Comments Carbon Dioxide Level (test code = 25 -8-9) [facility] HospitalAnion [id number] 08:31:00 Test Item Value Reference Range Interpretation Comments Anion Gap (test code = 70618-5) 12.0 8-16 [facility] HospitalBlood Urea [id number] 08:31:00 Test Item Value Reference Range Interpretation Comments Blood Urea Nitrogen (test code = 12-14 3094-0) [facility] HospitalCreatinine2018-06-08 08:31:00 Test Item Value Reference Range Interpretation Comments Creatinine (test code = 2160-0) 0.72 0.72-1.25 [facility] HospitalBUN/Creatinine Cixys0121-85-53 08:31:00 Test Item Value Reference Range Interpretation Comments BUN/Creatinine Ratio (test code = 10 6-25 3097-3) [facility] HospitalEstimat Glomerular Filtration Nrpt3344-98-17 08:31:00 Test Item Value Reference Range Interpretation Comments Estimat Glomerular Filtration Rate 60- >60 (test code = 62854-7) Ranges were taken from the National Kidney Disease Education Program and the National Kidney Foundation literature.Reference ranges:60 or greater: Yzlmpi22- 59 (for 3 consecutive months): Chronic kidneydisease 15 or less: Kidney failure [facility] HospitalGlucose Hjxsc1513-75-53 08:31:00 Test Item Value Reference Range Interpretation Comments Glucose Level (test code = QQR0499) 195 74-118 H [facility] HospitalCalcium Fntid2424-73-35 08:31:00 Test Item Value Reference Range Interpretation Comments Calcium Level (test code = 88451-3) 9.0 8.4-10.2 [facility] HospitalWhite Blood Hsgdh1415-15-00 08:12:00 Test Item Value Reference Range Interpretation Comments White Blood Count (test code = 6690-2) 6.06 4.8-10.8 [facility] HospitalRed Blood Rnfgs9814-62-35 08:12:00 Test Item Value Reference Range Interpretation Comments Red Blood Count (test code = 789-8) 4.22 4.3-5.7 L [facility] HospitalHemoglobin2018-06-08 08:12:00 Test Item Value Reference Range Interpretation Comments Hemoglobin (test code = 66880-3) 12.5 14.0-18.0 L [facility] HospitalHematocrit2018-06-08 08:12:00 Test Item Value Reference Range Interpretation Comments Hematocrit (test code = 4544-3) 36.2 38.2-49.6 L [facility] HospitalMean Corpuscular Togpqm4039-36-29 08:12:00 Test Item Value Reference Range Interpretation Comments Mean Corpuscular Volume (test code = 85.8 81-99 787-2) [facility] HospitalMean Corpuscular Xjywaxtkau8634-42-99 08:12:00 Test Item Value Reference Range Interpretation Comments Mean Corpuscular Hemoglobin (test code 29.6 28-32 = 785-6) [facility] HospitalMean Corpuscular Hemoglobin Mshijfz0888-84-90 08:12:00 Test Item Value Reference Range Interpretation Comments Mean Corpuscular Hemoglobin Concent 34.5 31-35 (test code = 786-4) [facility] HospitalRed Cell Distribution Xpqgh9276-22-06 08:12:00 Test Item Value Reference Range Interpretation Comments Red Cell Distribution Width (test code 14.2 11.7-14.4 = 77701-8) [facility] HospitalPlatelet Bmptc9148-93-58 08:12:00 Test Item Value Reference Range Interpretation Comments Platelet Count (test code = 777-3) 263 140-360 [facility] HospitalNeutrophils (%) (Auto)2017-10-27 08:12:00 Test Item Value Reference Range Interpretation Comments Neutrophils (%) (Auto) (test code = 51.2 38.7-80.0 32593-9) [facility] HospitalLymphocytes (%) (Auto)2017-10-27 08:12:00 Test Item Value Reference Range Interpretation Comments Lymphocytes (%) (Auto) (test code = 33.7 18.0-39.1 736-9) [facility] HospitalMonocytes (%) (Auto)2017-10-27 08:12:00 Test Item Value Reference Range Interpretation Comments Monocytes (%) (Auto) (test code = 9.1 4.4-11.3 5905-5) [facility] HospitalEosinophils (%) (Auto)2017-10-27 08:12:00 Test Item Value Reference Range Interpretation Comments Eosinophils (%) (Auto) (test code = 4.8 0.0-6.0 713-8) [facility] HospitalBasophils (%) (Auto)2017-10-27 08:12:00 Test Item Value Reference Range Interpretation Comments Basophils (%) (Auto) (test code = 0.7 0.0-1.0 706-2) [facility] HospitalIM GRANULOCYTES %2017-10-27 08:12:00 Test Item Value Reference Range Interpretation Comments IM GRANULOCYTES % (test code = IM 0.5 0.0-1.0 GRANULOCYTES %) [facility] HospitalNeutrophils # (Auto)2017-10-27 08:12:00 Test Item Value Reference Range Interpretation Comments Neutrophils # (Auto) (test code = 3.1 2.1-6.9 751-8) [facility] HospitalLymphocytes # (Auto)2017-10-27 08:12:00 Test Item Value Reference Range Interpretation Comments Lymphocytes # (Auto) (test code = 2.0 1.0-3.2 57416-0) [facility] HospitalMonocytes # (Auto)2017-10-27 08:12:00 Test Item Value Reference Range Interpretation Comments Monocytes # (Auto) (test code = 742-7) 0.6 0.2-0.8 [facility] HospitalEosinophils # (Auto)2017-10-27 08:12:00 Test Item Value Reference Range Interpretation Comments Eosinophils # (Auto) (test code = 0.3 0.0-0.4 711-2) [facility] HospitalBasophils # (Auto)2017-10-27 08:12:00 Test Item Value Reference Range Interpretation Comments Basophils # (Auto) (test code = 704-7) 0.0 0.0-0.1 [facility] HospitalAbsolute Immature Granulocyte (ibzx1609-83-50 08:12:00 Test Item Value Reference Range Interpretation Comments Absolute Immature Granulocyte (auto 0.03 0-0.1 (test code = Absolute Immature Granulocyte (auto) [facility] HospitalCreatine Kinase YX8712-04-09 15:14:00 Test Item Value Reference Range Interpretation Comments Creatine Kinase MB (test code = 3.90 0-5.0 21389-3) [facility] HospitalTroponin [id number] 15:14:00 Test Item Value Reference Range Interpretation Comments Troponin I (test code = MRG3790) 0.054 0-0.300 [facility] HospitalCreatine Tdpacj8413-81-01 15:07:00 Test Item Value Reference Range Interpretation Comments Creatine Kinase (test code = 2157-6) 297 30-200 H [facility] HospitalHemoglobin A1c Librkvt3544-76-17 08:04:00 Test Item Value Reference Range Interpretation Comments Hemoglobin A1c Percent (test code = 12.6 4.0-7.0 H Hemoglobin A1c Percent) [facility] HospitalTriglycerides Omvsa9560-88-52 06:57:00 Test Item Value Reference Range Interpretation Comments Triglycerides Level (test code = 200 0-149 H 2571-8) [facility] HospitalCholesterol Odclp2616-36-72 06:57:00 Test Item Value Reference Range Interpretation Comments Cholesterol Level (test code = 2093-3) 239 0-199 H Less than 200 mg/dL Low Wozk919 - 239 mg/dL Borderline Gznt969 mg/dl and greater High RiskSeymour HospitalLDL Ugdeputchnc5552-68-54 06:57:00 Test Item Value Reference Range Interpretation Comments LDL Cholesterol (test code = 2089-1) 164 60-130 H [facility] HospitalHDL Tqabxbcftjt2519-71-67 06:57:00 Test Item Value Reference Range Interpretation Comments HDL Cholesterol (test code = 2085-9) 35 40-60 L [facility] HospitalCholesterol/HDL Syqrk9800-27-98 06:57:00 Test Item Value Reference Range Interpretation Comments Cholesterol/HDL Ratio (test code = 6.8 3.9-4.7 H 9830-1) [facility] HospitalUrine Opiates Fusyvn8208-69-82 16:18:00 Test Item Value Reference Range Interpretation Comments Urine Opiates Screen (test code = NEGATIVE NEGATIVE 83876-1) [facility] HospitalUrine Barbiturates Zvvaps6572-34-15 16:18:00 Test Item Value Reference Range Interpretation Comments Urine Barbiturates Screen (test code NEGATIVE NEGATIVE = 366336486) [facility] HospitalUrine Phencyclidine Ydkaay0543-85-24 16:18:00 Test Item Value Reference Range Interpretation Comments Urine Phencyclidine Screen (test NEGATIVE NEGATIVE code = 13377-5) [facility] HospitalUrine Amphetamines Pltrjm3299-61-19 16:18:00 Test Item Value Reference Range Interpretation Comments Urine Amphetamines Screen (test code NEGATIVE NEGATIVE = 73269-4) [facility] HospitalUrine Methamphetamines Vkjxbq0637-10-10 16:18:00 Test Item Value Reference Range Interpretation Comments Urine Methamphetamines Screen (test NEGATIVE NEGATIVE code = Urine Methamphetamines Screen) [facility] HospitalUrine Benzodiazepines Vercnm4425-34-73 16:18:00 Test Item Value Reference Range Interpretation Comments Urine Benzodiazepines Screen (test NEGATIVE NEGATIVE code = 99093-1) [facility] HospitalUrine Cocaine Qyorlz4394-77-54 16:18:00 Test Item Value Reference Range Interpretation Comments Urine Cocaine Screen (test code = NEGATIVE NEGATIVE 3398-5) [facility] HospitalUrine Cannabinoids Ankbvo3379-98-97 16:18:00 Test Item Value Reference Range Interpretation Comments Urine Cannabinoids Screen (test code NEGATIVE NEGATIVE = 01592-9) THESE RESULTS ARE FOR MEDICAL TREATMENT ONLYTHIS REPORT CONTAINS UNCONFIRMED SCREENING RESULTS*POSITIVE RESULTS WILL BE CONFIRMED BY REFERENCE LAB UPON REQUEST CUT-OFFDRUG CLASS CONCENTRATION ng/mLAmphetamines 1000Methamphetamines 1000Cocaine 300Opiate 300Phencyclidine 25Cannabinoid 50Barbiturates 300Benzodiazepine 300Methadone 300[facility] HospitalUrine Methadone Fflbhf0081-82-87 16:18:00 Test Item Value Reference Range Interpretation Comments Urine Methadone Screen (test code = NEGATIVE NEGATIVE 21244-0) THESE RESULTS ARE FOR MEDICAL TREATMENT ONLYTHIS REPORT CONTAINS UNCONFIRMED SCREENING RESULTS*POSITIVE RESULTS WILL BE CONFIRMED BY REFERENCE LAB UPON REQUEST CUT-OFFDRUG CLASS CONCENTRATION ng/mLAmphetamines 1000Methamphetamines 1000Cocaine Metabolite 300Opiate 300Phencyclidine 25Cannabinoid 50Barbiturates 300Benzodiazepine 300Methadone 300[facility] HospitalProthrombin Iqdx0812-83-02 14:13:00 Test Item Value Reference Range Interpretation Comments Prothrombin Time (test code = 5902-2) 13.6 11.9-14.5 [facility] HospitalProthromb Time International Quxjb0303-99-58 14:13:00 Test Item Value Reference Range Interpretation Comments Prothromb Time International Ratio 1.13 (test code = 6301-6) Oral Anticoagulant Therapy INR Values:1. Low Intensity Therapy 1.5 - 2.02. Moderate Intensity Therapy 2.0 - 3.03. High Intensity Therapy(1) 2.5 - 3.54. High Intensity Therapy(2) 3.0 - 4.05. Panic ValueINR > 5.0[facility] HospitalActivated Partial Thromboplast Rnuv5265-04-91 14:13:00 Test Item Value Reference Range Interpretation Comments Activated Partial Thromboplast Time 27.6 23.8-35.5 (test code = 81736-6) [facility] HospitalTotal Kmlyfdsju0637-72-64 14:10:00 Test Item Value Reference Range Interpretation Comments Total Bilirubin (test code = 1975-2) 0.6 0.2-1.2 [facility] HospitalAspartate Amino Transf (AST/SGOT)2017-10-23 14:10:00 Test Item Value Reference Range Interpretation Comments Aspartate Amino Transf (AST/SGOT) (test 36 5-34 H code = Aspartate Amino Transf (AST/SGOT)) [facility]PT)2017-10-23 14:10:00 Test Item Value Reference Range Interpretation Comments Alanine Aminotransferase (ALT/SGPT) 34 0-55 (test code = 1742-6) [facility] Wmfvfyj0540-56-95 14:10:00 Test Item Value Reference Range Interpretation Comments Total Protein (test code = 2885-2) 7.3 6.5-8.1 [facility]in2018-06-[facility] 14:10:00 Test Item Value Reference Range Interpretation Comments Albumin (test code = 1751-7) 4.0 3.5-5.0 [facility]ulin2018-[facility]-04 14:10:00 Test Item Value Reference Range Interpretation Comments Globulin (test code = 93874-6) 3.3 2.3-3.5 [facility]/Globulin Sedso2550-61-76 14:10:00 Test Item Value Reference Range Interpretation Comments Albumin/Globulin Ratio (test code = 1.2 0.8-2.0 1759-0) [facility]Alkaline Zonrqpgxidj1378-84-15 14:10:00 Test Item Value Reference Range Interpretation Comments Alkaline Phosphatase (test code = 109 40-150 6768-6) [facility] Natriuretic Ooqcedy9511-23-77 14:10:00 Test Item Value Reference Range Interpretation Comments B-Type Natriuretic Peptide (test code = 92.8 0-100 44652-3) [facility]Amylase Nnvlp9121-78-85 14:10:00 Test Item Value Reference Range Interpretation Comments Amylase Level (test code = 1798-8) 126 25-125 H [facility]Lipase2018-06-04 14:10:00 Test Item Value Reference Range Interpretation Comments Lipase (test code = 3040-3) 98 8-78 H [facility]D-Dimer Quantitative (PE/DVT)2017-10-23 14:02:00 Test Item Value Reference Range Interpretation Comments D-Dimer Quantitative (PE/DVT) (test 0.49 0.00-0.45 H code = 09664-8) [facility] HospitalDirect Rqiyujioc7359-74-01 13:47:00 Test Item Value Reference Range Interpretation Comments Direct Bilirubin (test code = 49257-0) 0.2 0.0-5.0 [facility]Magnesium Naaje4424-67-74 06:52:00 Test Item Value Reference Range Interpretation Comments Magnesium Level (test code = 83018-2) 1.5 1.3-2.1 [facility] OHJ2693-35-61 05:09:00 Test Item Value Reference Range Interpretation Comments Urine WBC (test code = 5821-4) NONE 0-5 [facility] VQG5947-23-64 05:09:00 Test Item Value Reference Range Interpretation Comments Urine RBC (test code = 07095-1) NONE 0-5 [facility] Osrscpxa9419-87-31 05:09:00 Test Item Value Reference Range Interpretation Comments Urine Bacteria (test code = 00976-7) NONE NONE [facility] Epithelial Btbep5798-11-74 05:09:00 Test Item Value Reference Range Interpretation Comments Urine Epithelial Cells (test code = NONE NONE 71034-2) [facility] Leukocyte Ltlojxfi5198-82-87 04:46:00 Test Item Value Reference Range Interpretation Comments Urine Leukocyte Esterase (test code NEGATIVE NEGATIVE = 5799-2) [facility] Qttfgqg2288-66-78 04:46:00 Test Item Value Reference Range Interpretation Comments Urine Nitrite (test code = 65577-9) NEGATIVE NEGATIVE [facility] Wvhiamd8811-13-69 04:46:00 Test Item Value Reference Range Interpretation Comments Urine Protein (test code = 5804-0) NEGATIVE NEGATIVE [facility] Glucose (UA)2017-03-05 04:46:00 Test Item Value Reference Range Interpretation Comments Urine Glucose (UA) (test code = NEGATIVE NEGATIVE 2349-9) [facility] Icwconc8209-56-00 04:46:00 Test Item Value Reference Range Interpretation Comments Urine Ketones (test code = 65819-9) NEGATIVE NEGATIVE [facility] Qziuevbyuslv8846-14-36 04:46:00 Test Item Value Reference Range Interpretation Comments Urine Urobilinogen (test code = 0.2 0.2-1 76645-3) [facility] Pxghlvuga2403-76-09 04:46:00 Test Item Value Reference Range Interpretation Comments Urine Bilirubin (test code = 1978-6) NEGATIVE NEGATIVE [facility] Uabhp2639-94-36 04:46:00 Test Item Value Reference Range Interpretation Comments Urine Blood (test code = 04583-4) 2+ NEGATIVE H [facility] Fsyxw8731-00-50 04:46:00 Test Item Value Reference Range Interpretation Comments Urine Color (test code = 5778-6) YELLOW YELLOW [facility] Vuendcw9639-93-35 04:46:00 Test Item Value Reference Range Interpretation Comments Urine Clarity (test code = 88191-7) CLEAR CLEAR [facility] Specific Apxgpbp1050-96-45 04:46:00 Test Item Value Reference Range Interpretation Comments Urine Specific [place] (test code = 1.010 1.010-1.025 5811-5) [facility] lW9078-28-86 04:46:00 Test Item Value Reference Range Interpretation Comments Urine pH (test code = 47296-2) 8 5-7 H [facility] HospitalCT[facility]IN [facility] [address] [place] [address] PatientName: FAITH VANCE MR #: [id number] : 1960 Age/Sex: 57/M [facility] #: [id number] Req #: [id number] [facility] Physician: ALEXIS COX MD Ordered by: ALEXIS COX MD Report #: [id number] Location: [facility] Room/Bed: [place] [address] Procedure: [id number] CT/CTA BRAIN Exam Date: 10/24/17 Exam Time: [...] COPY TO: ALEXIS COX MDCT BRAIN WO [place] [address] Patient Name: FAITH VANCE MR #: [id number] : 1960 Age/Sex: 57/M Req #: [id number] Adm Physician: Ordered by: KHAI WAHL MD Report #: [id number] Location: ER Room/Bed: _ Procedure: [id number] CT/CT BRAIN WO Exam Date: 10/23/17 Exam [...] Silvana manzo at 4:36 PM on 10/23/2021. Signedby: Dr. Ana Maria Arteaga M.D. on 10/23/2017 4:43 PM Dictated By: ANA MARIA ARTEAGA MD 42 Transcribed By: ANDREE on 10/23/171642 COPY TO: KHAI WAHL V MDCTA CHEST [place] [address] Patient Name: FAITH VANCE MR #: [id number] : 1960 Age/Sex: 57/M Req #: [id number] Adm Physician: Ordered by: KHAI WAHL MD Report #: [id number] Location: ER Room/Bed: _ Procedure: [id number] CT/CTA CHEST Exam Date: 10/23/17 Exam Time: [...] by [facility]).FINDINGS: Lines and Tubes: Pacemaker with leads terminating right atrium and right ventricular apex.Lower Neck: The visualized thyroid gland is grossly [...] dissection. 2. Minimal opacity right lung base, nonspe cific. Pneumonitis possible. 3. Hepatic steatosis. Signed by: Dr. Oren Irizarry MD on 10/23/2017 4:21 PM Dictated By: OREN IRIZARRY MD 1621 Transcribed By: ANDREE on 10/23/17 1621 COPY TO: KHAI WAHL V [facility] (PORTABLE) [place] [address] PatientName: FAITH VANCE MR #: [id number] : 1960 Age/Sex: 57/M Req #: [id number] Adm Physician: Ordered by: KHAI WAHL MD Report #: [id number] Location: ER Room/Bed: __ Procedure: [id number] DX/CHEST SINGLE (PORTABLE) Exam Date: 10/23/17 Exam Time: 1420 REPORT STATUS: Signed PROCEDURE: A single AP view of the chest. COMPARISON: Chest x-ray 04/04/2017. INDICATIONS: LEFT SIDED NUMBNESS, WEAKNESS. HEADACHE FINDINGS: Lines/tubes: Left-sided pacemaker with 2 intact wires. Median sternotomy wires are present. Lungs: The lungs are well inflated and clear. There is no evidenceof pneumonia or pulmonary edema. Pleura: There is no pleural effusion or pneumothorax. Heart and mediastinum: The heart and the mediastinum are unremarkable. Bones: No acute bony abnormality. IMPRESSION: No acute cardiopulmonary disease. Dictated by: Elie Barfield M.D. on 10/23/2017 at 14:43 Electronicallyapproved by: Elie Barfield M.D. on 10/23/2017 at 14:43 Dictated By: ELIE BARFIELD MD 1443 Transcribed By: ANIBAL on 10/23/17 1443 COPY TO: KHAI WAHL V MDCT BRAIN WO [place] [address] PatientName: FAITH VANCE MR #: [id number] : 1960 Age/Sex: 56/M Req #: [id number] Adm Physician: Ordered by: JACQUELYN MONTES DE OCA MD Report #: [id number] Location: ER Room/Bed: Procedure: [id number] CT/CT BRAIN WO Exam Date: Exam Time: [...] MONTES DE OCA MDCT CERVICAL SPINE WO [place] [address] PatientName: FAITH VANCE MR #: [id number] : 1960 Age/Sex: 56/M Req #: [id number] Adm Physician: Ordered by: JACQUELYN MONTES DE OCA MD Report #: [id number] Location: ER Room/Bed: Procedure: [id number] CT/CT CERVICAL SPINE WO Exam Date: Exam [...] 04/04/17206 COPY TO: JACQUELYN [facility]ONTES DE [facility]CA [facility] [place] [address] PatientName: FAITH VANCE MR #: [id number] : 1960 Age/Sex: 56/M Req #: [id number] Adm Physician: Ordered by: JCAQUELYN MONTES DE OCA MD Report #: [id number] Location: ER Room/Bed: Procedure: [id number] DX/CHEST SINGLE (PORTABLE) Exam Date: 04/04/17 Exam [...] OCA MDHIP RIGHT 2-3 VW (+/- PELVIS) [place] [address] PatientName: FAITH VANCE MR #: [id number] : 1960 Age/Sex: 56/M Req #: [id number] Adm Physician: Ordered by: JACQUELYN MONTES DE OCA MD Report #: [id number] Location: ER Room/Bed: Procedure: [id number] DX/HIP RIGHT 2-3 VW (+/- PELVIS) Exam [...] DE OCA MDSP LUMBAR, COMPLETE MIN 4VW [place] [address] PatientName: FAITH VANCE MR #: [id number] : 1960 Age/Sex: 56/M Req #: [id number] Adm Physician: Ordered by: JACQUELYN MONTES DE OCA MD Report #: [id number] Location: ER Room/Bed: Procedure: [id number] DX/SP LUMBAR, COMPLETE MIN 4VW Exam Date: 04/04/17 Exam Time: 0108 REPORT STATUS: Signed SP LUMBAR, COMPLETE MIN 4VW Comparison: CT 08/10/2016 Clinical history: Status post fall with lowerback pain Findings: Postoperative changes from posterior fusion from left L4 vertebral body to L5-S5dfpkem and posterior decompression. No evidence of hardware [...] JACQUELYN MONTES DE OCA MDUS ABDOMEN COMPLETE [place] [address] PatientName: FAITH VANCE MR #: [id number] : 1960 Age/Sex: 56/M Req #: [id number] [facility] Physician: NICHELLE PALACIOS MD Ordered by: SCOTT AMIN MD Report #: [id number] Location: [facility] Room/Bed: [place] [address] Procedure: [id number] US/US ABDOMEN COMPLETE Exam Date: 03/08/17 Exam [...] 10:40 Dictated By: BROOKE SAMPSON MD 39 [facility] [place] [address] PatientName: FAITH VANCE MR #: [id number] : 1960 Age/Sex: 56/M Req #: [id number] Adm Physician: Ordered by: JACQUELYN MONTES DE OCA MD Report #: [id number] Location: ER Room/Bed: Procedure: [id number] DX/CHEST SINGLE (PORTABLE) Exam Date: 03/05/17 Exam Time: 0445 REPORT STATUS: Signed CHEST SINGLE (PORTABLE), 03/05/2017 4:15 AM Technique: CHEST SINGLE (PORTABLE) Comparison: 01/04/2017 C linical history: Chest pain Findings: Status post median [...]
[2022-01-17] MEDS ORDERED: ONDANSETRON 4 MG/2 ML VIAL ONE ×2 (17:12→21:26)
[2022-01-17] MEDS ORDERED: MORPHINE 4 MG/ML SYR ONE ×3 (17:12→21:25)
[2022-01-17 17:15] LABS: Hematocrit 31.2 % (39.6-49.0); Lymphocytes % 13.3 % (15.3-44.8); MCV 91.8 fL (80-100); MPV 7.7 fL (7.6-11.3)
[2022-01-17 17:30] LABS: Potassium 5.5 mmol/L (3.5-5.1); Troponin High Sensitivity 22.8 pg/mL (<58.9)
--- NOTE | 2022-01-17 17:53 | ER ---
Nurse's Notes [facility] Name: Ernie Rooney Age: 61 yrs Sex: Male : 1960 Arrival Date: 01/17/2022 Time: 16:55 Bed 2 Private MD: Diagnosis: Chest pain, unspecified Presentation: 01/17 17:07 Chief complaint: EMS states: Left sided CP, radiates to neck, left arm and back x 1.5 jl7 hrs, pt noncompliant with home medications x 3 weeks, 324 aspirin given in route. Coronavirus screen: Vaccine status: Patient reports receiving the 2nd dose of the covid vaccine. At this time, the client does not indicate any symptoms associated with coronavirus-19. Ebola Screen: No symptoms or risks identified at this time. Initial Sepsis Screen: Does the patient meet any 2 criteria? No. Patient's initial sepsis screen is negative. Does the patient have a suspected source of infection? No. Patient's initial sepsis screen is negative. Risk Assessment: Do you want to hurt yourself or someone else? Patient reports no desire to harm self or others. Onset of symptoms was January 17, 2022 at 13:30. Care prior to arrival: Medication(s) given: ASA, 81 mg, x 4, IV initiated. 20 GA, in the left forearm, Glucose check: 204. 17:07 Method Of Arrival: EMS: [facility] jl7 17:07 Acuity: TONE 2 jl7 Triage Assessment: 17:10 General: Appears in no apparent distress. uncomfortable, Behavior is calm, cooperative, jl7 appropriate for age. Pain: Complains of pain in anterior aspect of left upper chest Pain radiates to back, left arm and neck Pain currently is 9 out of 10 on a pain scale. Quality of pain is described as sharp, Pain began 1.5 hrs ago Is continuous. Neuro: Naidu Agitation-Sedation Scale (RASS): +1 Restless Level of Consciousness is awake, alert, obeys commands, Oriented to person, place, time, situation. Cardiovascular: Patient's skin is warm and dry. Respiratory: Airway is patent Respiratory effort is even, unlabored, Respiratory pattern is regular, symmetrical. Derm: Skin is pink, warm \\T\\ dry. Historical: - Allergies: 17:10 NKA; jl7 - Home Meds: 17:10 albuterol sulfate 90 mcg/actuation Inhl aepb [Active]; apixaban 5 mg Oral tab 1 tab 2 jl7 times per day [Active]; aspirin 81 mg Oral chew [Active]; atorvastatin 40 mg Oral tab 1 tab once daily [Active]; cyclobenzaprine 10 mg Oral tab 1 tab as needed [Active]; fenofibrate micronized 200 mg Oral Tb24 1 cap once daily [Active]; furosemide 40 mg Oral tab 1 tab once daily [Active]; gabapentin 800 mg Oral tab 1 tab 3 times per day [Active]; glipizide 10 mg Oral tab 1 tab once daily [Active]; Humulin N Pen 100 unit/mL (3 mL) Sub-Q inpn [Active]; levothyroxine 50 mcg Tb24 1 cap once daily [Active]; lisinopril 2.5 mg Oral tab 1 tab once daily [Active]; metformin 500 mg Oral tab 1 tab daily [Active]; omeprazole 20 mg Oral cpDR 1 cap once daily [Active]; spironolactone 25 mg Oral tab 1 tab once daily [Active]; tamsulosin 0.4 mg Oral Tb24 1 cap once daily [Active]; venlafaxine 75 mg Oral tab 1 tab 2 times per day [Active]; - PMHx: 17:10 Arthritis; Back pain; CVA; Depression; Diabetes - NIDDM; Fibromyalgia; GERD; High jl7 Cholesterol; Hyperlipidemia; Hypertension; Hypertensive disorder; Hypothyroidism; Left sided weakness from previous CVA; Myocardial infarction; Pacemaker; - PSHx: 17:10 bilat BKA's; bypass; CABG; jl7 - Immunization history:: Client reports receiving the 2nd dose of the Covid vaccine. - Family history:: not pertinent. - Social history:: Smoking status: unknown. - Hospitalizations: : No recent hospitalization is reported. Screenin:30 Abuse screen: Denies threats or abuse. Denies injuries from another. Nutritional jl7 screening: No deficits noted. Tuberculosis screening: No symptoms or risk factors identified. Fall Risk IV access (20 points). Total Cummings Fall Scale indicates No Risk (0-24 pts). Assessment: 17:00 Reassessment: Pt reports "I haven't gotten paid yet, I get paid on the 4th and can get jl7 my meds then.". 17:40 Reassessment: Patient appears in no apparent distress at this time. No changes from jl7 previously documented assessment. Pt reports pain medication did not help at all, ERD notified, see MAR for orders. Vital Signs: 17:07 BP 126 / 69; Pulse 77; Resp 21 S; Temp 97.8; Pulse Ox 98% on R/A; Weight 71.21 kg; jl7 Height 5 ft. 7 in. (170.18 cm); Pain 9/10; 18:00 BP 150 / 77; Pulse 79; Resp 15; Pulse Ox 99% on R/A; jl7 21:10 BP 135 / 78; Pulse 73; Resp 18; Pulse Ox 99% on R/A; kl 17:07 Body Mass Index 24.59 (71.21 kg, 170.18 cm) jl7 ED Course: 16:55 Patient arrived in ED. rn 16:55 Hawk Parrish MD is Attending Physician. rn 16:58 Sung Niño RN is Primary Nurse. jl7 17:00 Client placed on continuous cardiac and pulse oximetry monitoring. NIBP monitoring jl7 applied. 17:00 Patient has correct armband on for positive identification. Bed in low position. Call jl7 light in reach. Side rails up X2. 17:10 Triage completed. jl7 17:10 Arm band placed on right wrist. jl7 17:14 Initial lab(s) drawn, by ED staff, sent to lab. EKG done, by ED staff, reviewed by stone Parrish MD. Maintain EMS IV. Dressing intact. Good blood return noted. Site clean \\T\\ dry. Gauge \\T\\ site: 20 Left FA. Patient maintains SpO2 saturation greater than 95% on room air. 17:52 Alf Rios is Hospitalizing Provider. rn 17:56 CT Chest For PE Angio In Process Unspecified. EDMS 18:28 XRAY Chest (1 view) In Process Unspecified. EDMS 19:11 Primary Nurse role handed off by Sung Niño, SHEBA mw2 19:19 Addy Alcala, SHEBA is Primary Nurse. jb4 21:10 No provider procedures requiring assistance completed. kl 21:10 Patient admitted, IV remains in place. kl Administered Medications: 17:07 Drug: morphine 4 mg Route: IVP; Infused Over: 4 mins; Site: left forearm; jl7 17:30 Follow up: Response: No adverse reaction; Pain is unchanged, physician notified jl7 17:07 Drug: Zofran (Ondansetron) 4 mg Route: IVP; Site: left forearm; jl7 18:07 Follow up: Response: No adverse reaction jl7 18:07 Drug: morphine 4 mg Route: IVP; Infused Over: 4 mins; Site: left forearm; jl7 19:26 Drug: Lasix (furosemide) 40 mg Route: IVP; Site: left forearm; jb4 Medication: 18:18 VIS not applicable for this client. jl7 Outcome: 17:53 Decision to Hospitalize by Provider. rn 21:10 Admitted to ER Hold. [facility] see [facility] for further documentation. jules 21:10 Condition: stable 21:10 Demonstrated understanding of instructions. 01/18 13:06 Patient left the ED. jl7 Signatures: Dispatcher [employer] EDMS Giulia Gilbert RN RN kl Nieto, Roman, MD MD rn Bryson, James, RN RN jb4 Sung Niño RN RN jlMichele Ferrari 2
--- NOTE | 2022-01-17 17:54 | EDPHYS ---
Physician Documentation [facility] Name: Ernie Rooney Age: 61 yrs Sex: Male : 1960 Arrival Date: 01/17/2022 Time: 16:55 Bed 2 Private MD: ED Physician Hawk Parrish HPI: 01/17 17:05 This 61 yrs old Male presents to ER via Unassigned with complaints of chest rn pain. 17:05 The pain does not radiate. The chest pain is described as sharp, stabbing. Duration: rn The patient or guardian reports multiple episodes. Modifying factors: The symptoms are alleviated by nothing. the symptoms are aggravated by deep breath, palpation of area. Severity of pain: At its worst the pain was moderate in the emergency department the pain is unchanged. The patient has not recently seen a physician. 17:05 The patient or guardian reports chest pain that is located primarily in the substernal rn area. Onset: at an unknown time. Associated signs and symptoms: Pertinent positives: shortness of breath, Pertinent negatives: abdominal pain, syncope, vomiting. Modifying factors: The symptoms are alleviated by the symptoms are aggravated by. Pt reports chest pain, unknown onset, off diabetes and cardiac meds including eliquis for hx of PE, for 3 weeks due to financial restraints. Substernal chest pain that radiates to neck and left arm. Assoc with sob and worse with deep breath. . Historical: - Allergies: 17:10 NKA; jl7 - Home Meds: 17:10 albuterol sulfate 90 mcg/actuation Inhl aepb [Active]; apixaban 5 mg Oral tab 1 tab 2 jl7 times per day [Active]; aspirin 81 mg Oral chew [Active]; atorvastatin 40 mg Oral tab 1 tab once daily [Active]; cyclobenzaprine 10 mg Oral tab 1 tab as needed [Active]; fenofibrate micronized 200 mg Oral Tb24 1 cap once daily [Active]; furosemide 40 mg Oral tab 1 tab once daily [Active]; gabapentin 800 mg Oral tab 1 tab 3 times per day [Active]; glipizide 10 mg Oral tab 1 tab once daily [Active]; Humulin N Pen 100 unit/mL (3 mL) Sub-Q inpn [Active]; levothyroxine 50 mcg Tb24 1 cap once daily [Active]; lisinopril 2.5 mg Oral tab 1 tab once daily [Active]; metformin 500 mg Oral tab 1 tab daily [Active]; omeprazole 20 mg Oral cpDR 1 cap once daily [Active]; spironolactone 25 mg Oral tab 1 tab once daily [Active]; tamsulosin 0.4 mg Oral Tb24 1 cap once daily [Active]; venlafaxine 75 mg Oral tab 1 tab 2 times per day [Active]; - PMHx: 17:10 Arthritis; Back pain; CVA; Depression; Diabetes - NIDDM; Fibromyalgia; GERD; High jl7 Cholesterol; Hyperlipidemia; Hypertension; Hypertensive disorder; Hypothyroidism; Left sided weakness from previous CVA; Myocardial infarction; Pacemaker; - PSHx: 17:10 bilat BKA's; bypass; CABG; jl7 - Immunization history:: Client reports receiving the 2nd dose of the Covid vaccine. - Family history:: not pertinent. - Social history:: Smoking status: unknown. - Hospitalizations: : No recent hospitalization is reported. ROS: 17:05 Constitutional: Negative for fever, chills, and weight loss, Eyes: Negative for injury, rn pain, redness, and discharge, Neck: Negative for injury, pain, and swelling, Cardiovascular: + chest pain and sob Respiratory: + sob Abdomen/GI: Negative for abdominal pain, nausea, vomiting, diarrhea, and constipation, Back: Negative for injury and pain, MS/Extremity: Negative for injury and deformity, Skin: Negative for injury, rash, and discoloration, Neuro: Negative for headache, weakness, numbness, tingling, and seizure. Exam: 17:05 Constitutional: This is a well developed, well nourished patient who is awake, alert, rn slow to get into bed Head/Face: Normocephalic, atraumatic. Neck: Trachea midline, no masses palpated. Supple, full range of motion without nuchal rigidity, or vertebral point tenderness. Chest/axilla: Normal chest wall appearance and motion. Nontender with no deformity. No lesions are appreciated. Cardiovascular: Regular rate and rhythm. No pulse deficits. Respiratory: + mild tachypnea, speaking full sentences. Abdomen/GI: Soft, non-tender Skin: Warm, dry MS/ Extremity: Bilateral lower ext amputations. Neuro: Awake and alert, GCS 15 17:20 ECG was reviewed by the Attending Physician. rn Vital Signs: 17:07 BP 126 / 69; Pulse 77; Resp 21 S; Temp 97.8; Pulse Ox 98% on R/A; Weight 71.21 kg; jl7 Height 5 ft. 7 in. (170.18 cm); Pain 9/10; 18:00 BP 150 / 77; Pulse 79; Resp 15; Pulse Ox 99% on R/A; jl7 21:10 BP 135 / 78; Pulse 73; Resp 18; Pulse Ox 99% on R/A; kl 17:07 Body Mass Index 24.59 (71.21 kg, 170.18 cm) jl7 MDM: 16:55 Patient medically screened. rn 17:52 Differential diagnosis: acute myocardial infarction, coronary artery disease rn costochondritis, pleurisy, pneumothorax, pulmonary embolus, stable angina. The patient was not given aspirin in the Emergency Department. Administered by EMS. Data reviewed: vital signs, nurses notes, lab test result(s), EKG, radiologic studies, plain films, and as a result, I will admit patient. Counseling: I had a detailed discussion with the patient and/or guardian regarding: the historical points, exam findings, and any diagnostic results supporting the discharge/admit diagnosis, lab results, radiology results, the need for further work-up and treatment in the hospital. Admission orders: after a detailed discussion of the patient's condition and case, the admit orders are written by me. 01/17 16:55 Order name: Basic Metabolic Panel; Complete Time: 17:32 rn 01/17 16:55 Order name: CBC with Diff; Complete Time: 17:27 rn 01/17 16:55 Order name: NT PRO-BNP; Complete Time: 17:32 rn 01/17 16:55 Order name: Troponin HS; Complete Time: 17:32 rn 01/17 18:33 Order name: SARS RAPID; Complete Time: 20:20 rn 01/17 23:24 Order name: Troponin High Sensitivity; Complete Time: 23:37 EDMS 01/18 02:49 Order name: CBC with Automated Diff; Complete Time: 04:04 EDMS 01/18 03:09 Order name: Basic Metabolic Panel; Complete Time: 04:04 EDMS 01/18 03:09 Order name: Phosphorus; Complete Time: 04:04 EDMS 01/18 03:09 Order name: Troponin High Sensitivity; Complete Time: 04:04 EDMS 01/18 03:09 Order name: Lipid Profile; Complete Time: 04:04 EDMS 01/18 03:09 Order name: Magnesium; Complete Time: 04:04 EDMS 01/18 03:09 Order name: Thyroid Stimulating Hormone; Complete Time: 04:04 EDMS 01/18 03:30 Order name: T4 Free; Complete Time: 04:04 EDMS 01/17 16:55 Order name: XRAY Chest (1 view); Complete Time: 20:20 rn 01/17 16:55 Order name: EKG; Complete Time: 16:56 rn 01/17 16:55 Order name: Cardiac monitoring; Complete Time: 16:58 rn 01/17 16:55 Order name: EKG - Nurse/Tech; Complete Time: 16:58 rn 01/17 16:55 Order name: IV Saline Lock; Complete Time: 16:59 rn 01/17 16:55 Order name: Labs collected and sent; Complete Time: 16:59 rn 01/17 16:55 Order name: O2 Per Protocol; Complete Time: 16:58 rn 01/17 16:55 Order name: O2 Sat Monitoring; Complete Time: 16:58 rn 01/17 16:56 Order name: CT Chest For PE Angio; Complete Time: 18:23 rn 01/18 07:50 Order name: Glucose, Ancillary Testing EDMS 01/18 12:56 Order name: Glucose, Ancillary Testing EDMS EC:20 Rate is 86 beats/min. Rhythm is regular. Left axis deviation noted. QRS is positive in rn lead I and negative in lead aVF. QRS interval is prolonged at 154 msec. QT interval is normal. No Q waves. T waves are Normal. No ST changes noted. Clinical impression: Electronic pacemaker. Interpreted by me. Reviewed by me. Administered Medications: 17:07 Drug: morphine 4 mg Route: IVP; Infused Over: 4 mins; Site: left forearm; jl7 17:30 Follow up: Response: No adverse reaction; Pain is unchanged, physician notified jl7 17:07 Drug: Zofran (Ondansetron) 4 mg Route: IVP; Site: left forearm; jl7 18:07 Follow up: Response: No adverse reaction jl7 18:07 Drug: morphine 4 mg Route: IVP; Infused Over: 4 mins; Site: left forearm; jl7 19:26 Drug: Lasix (furosemide) 40 mg Route: IVP; Site: left forearm; jb4 Disposition Summary: 01/17/22 17:53 Hospitalization Ordered Hospitalization Status: Observation rn Provider: Alf Rios rn Condition: Stable rn Problem: new rn Symptoms: have improved rn Bed/Room Type: Standard rn Location: [facility] ER HOLD(01/17/22 17:57) dw Room Assignment: ERHOLD-(01/17/22 17:57) dw Diagnosis - Chest pain, unspecified rn Forms: - Medication Reconciliation Form rn - SBAR form rn Signatures: Dispatcher [employer] EDMS Rhonda Roland RN RN dw Hawk Parrish MD MD rn Bryson, James, RN RN Sung Marx RN RN jl7 Makayla Moreno PA PA [id number] Corrections: (The following items were deleted from the chart) 17:09 17:05 The patient or guardian reports chest pain that is located primarily in the left rn lateral anterior chest and left lateral posterior chest, rn 17: 17:05 Onset: 3 day(s) ago, rn rn 17: 17:05 Associated signs and symptoms: Pertinent negatives: abdominal pain, near syncope, rn palpitations, shortness of breath, syncope, vomiting, rn 17:09 17:05 Constitutional: Negative for fever, chills, and weight loss, Eyes: Negative for rn injury, pain, redness, and discharge, Neck: Negative for injury, pain, and swelling, Cardiovascular: Negative for palpitations, and edema, Respiratory: Negative for shortness of breath, cough, wheezing Abdomen/GI: Negative for abdominal pain, nausea, vomiting, diarrhea, and constipation, Back: Negative for injury and pain, MS/Extremity: Negative for injury and deformity, Skin: Negative for injury, rash, and discoloration, Neuro: Negative for headache, weakness, numbness, tingling, and seizure, rn 17:10 17:05 Constitutional: This is a well developed, well nourished patient who is awake, rn alert, slow to get into bed Head/Face: Normocephalic, atraumatic. Neck: Trachea midline, no masses palpated. Supple, full range of motion without nuchal rigidity, or vertebral point tenderness. rn 17:13 17:05 Modifying factors: The symptoms are alleviated by nothing. the symptoms are rn aggravated by deep breath, palpation of area, rn 17:13 17:05 The patient has not experienced similar symptoms in the past, rn rn 17:13 17:05 This 61 yrs old Male presents to ER via Unassigned with complaints of rn chest pain. rn 17:13 17:05 Constitutional: Negative for fever, chills, and weight loss, Eyes: Negative for rn injury, pain, redness, and discharge, Neck: Negative for injury, pain, and swelling, Cardiovascular: + chest pain and sob Respiratory: + sob Abdomen/GI: Negative for abdominal pain, nausea, vomiting, diarrhea, and constipation, Back: Negative for injury and pain, MS/Extremity: Negative for injury and deformity, Skin: Negative for injury, rash, and discoloration, Neuro: Negative for headache, weakness, numbness, tingling, and seizure, rn 17:14 17:05 Constitutional: This is a well developed, well nourished patient who is awake, rn alert, slow to get into bed Head/Face: Normocephalic, atraumatic. Neck: Trachea midline, no masses palpated. Supple, full range of motion without nuchal rigidity, or vertebral point tenderness. Chest/axilla: Normal chest wall appearance and motion. Nontender with no deformity. No lesions are appreciated. Cardiovascular: Regular rate and rhythm. No pulse deficits. Respiratory: No increased work of breathing, no retractions or nasal flaring. Abdomen/GI: Soft, non-tender Skin: Warm, dry MS/ Extremity: Bilateral lower ext amputations. Neuro: Awake and alert, GCS 15 rn 17:21 17:20 Rate is 86 beats/min. Rhythm is regular. QRS [place] is Normal. MA interval is rn normal. QRS interval is normal. QT interval is normal. No Q waves. T waves are Normal. No ST changes noted. Clinical impression: Electronic pacemaker. Interpreted by me. Reviewed by me. rn 17:21 17:20 Rate is 86 beats/min. Rhythm is regular. Left axis deviation noted. QRS is rn positive in lead I and negative in lead aVF. MA interval is normal. QRS interval is prolonged at 154 msec. QT interval is normal. No Q waves. T waves are Normal. No ST changes noted. Clinical impression: Electronic pacemaker. Interpreted by me. Reviewed by me. rn 17:57 17:53 Telemetry/MedSurg (observation) ilana chow 57 17:53 rn claudine
--- NOTE | 2022-01-17 18:21 | RAD REPORT ---
EXAM DESCRIPTION: CT - Chest For Pe Angio - 01/17/2022 5:54 pm CLINICAL HISTORY: chest pain, off eliquis for 3 weeks, hx of PE COMPARISON: Chest For Pe Angio dated 12/21/2021; Chest For Pe Angio dated 06/08/2021 TECHNIQUE: Dynamically enhanced 3 mm thick images of the chest were obtained during administration o f approximately 150mL Isovue 370 IV contrast. Coronal and oblique MIP reconstruction images were gene rated and reviewed. Exam utilizes a protocol to evaluate the pulmonary arterial tree. All CT scans are performed using dose optimization technique as appropriate and may include automated exposure control or mA/KV adjustment according to patient size. FINDINGS: No pulmonary emboli are identified. The aorta as imaged shows no acute or suspicious finding. No pericardial thickening or effusion. No infiltrate or mass in the lung parenchyma. Moderately large bilateral pleural effusions are presen t. There is partial atelectasis of each lower lobe. No mediastinal or hilar suspicious masses. No chest wall masses or abnormal axillary lymphadenopathy. Aortic and Coronary artery calcifications are present. Thoracic spine degenerative changes are present. IMPRESSION: No pulmonary emboli identified. Moderately large bilateral pleural effusions, similar to December 21 imaging.
[2022-01-17 19:08] LABS: SARS-CoV-2 Antigen Rapid Res Negative (Negative)
--- NOTE | 2022-01-17 19:14 | RAD REPORT ---
EXAM DESCRIPTION: RAD - Chest Single View - 01/17/2022 6:27 pm CLINICAL HISTORY: CHEST PAIN COMPARISON: Portable 01/13/2022 TECHNIQUE: AP portable chest image was obtained 01/17/2022 6:27 pm . FINDINGS: Lung volumes are low. Interstitial markings are prominent but not clearly different from c omparison. No new consolidations seen. Baseline pattern could mask early edema or infiltrate. Left subclavian pacemaker remains in place. Sternotomy wires in place. Heart and vasculature are norm al. No measurable pleural effusion and no pneumothorax. No acute bony abnormality seen. No acute aort ic findings suspected. IMPRESSION: Patchy interstitial and alveolar opacities are present. Pattern is not substantially different from comparison. Pattern could potentially mask early edema or infiltrate.
[2022-01-17] MEDS ORDERED: FUROSEMIDE 40 MG/4 ML VIAL ONE (19:32)
[2022-01-17] MEDS ORDERED: ACETAMINOPHEN 500 MG TAB PO PRN (21:08)
[2022-01-17] MEDS ORDERED: ALBUTEROL 2.5 MG/3 ML NEB SOL NEB PRN (21:08)
[2022-01-17] MEDS: ONDANSETRON 4 MG/2 ML VIAL IV PRN (21:24)
[2022-01-17] MEDS: MORPHINE 4 MG/ML SYR IV PRN (21:24)
--- NOTE | 2022-01-17 22:40 | P.HP ---
Certification for Inpatient Patient admitted to: Observation With expected LOS: <2 Midnights Patient will require the following post-hospital care: None Practitioner: I am a practitioner with admitting privileges, knowledge of patient current condition, hospital course, and medical plan of care. Services: Services provided to patient in accordance with Admission requirements found in Title 42 Section 412.3 of the Code of Federal Regulations Patient History Date of Service: 01/18/22 Reason for admission: Chest Pain History of Present Illness: Patient is a 61-year-old male with history of CAD s/p CABG with pacemaker/defibrillator, afib on eliquis, hypertension, hyperlipidemia, IDDM, hypothyroidism, and systolic CHF who presented to the ED via EMS with complaints of chest pain that radiates to his left arm. They gave him 324 mg aspirin en route. He has had several cardiac works this month, found to have an EF of 23% with severe global hypokinesis and mild pulmonary hypertension, and discharged with life vest. Cardiology has recommended outpatient stress test, echocardiogram, and lower extremity arterial Doppler. Patient has come to the ED 5 times this month for chest pain and he continues to be noncompliant with his medications. His labs today are significant for BNP 7944, troponin HS 22, potassium 5.5. He was also complaining of shortness of breath so CT chest angio was obtained and showed No pulmonary emboli identified. Moderately large bilateral pleural effusions, similar to December 21 imaging. He received morphine and zofran in the ED with improvement in pain. Vital signs stable. He is admitted for further management. Allergies No Known Allergies Allergy (Verified 12/21/21 00:23) Home Medications: lisinopriL [Prinivil*] 2.5 mg PO DAILY 11/19/18 Aspirin Chewable [Aspirin Chewable*] 81 mg PO BEDTIME 05/11/19 ondansetron HCL [Zofran] 4 mg PO Q8H PRN 08/01/19 Cyclobenzaprine [Flexeril*] 10 mg PO BID PRN 12/21/21 Dicyclomine [Bentyl*] 20 mg PO QID 12/21/21 Docusate Sodium 100 mg PO BID 12/21/21 Gabapentin 800 mg PO BID 12/21/21 Hydrocodone 5/APAP 325 [Ashley 5/325*] 1 tab PO Q6H PRN #12 tab 12/28/21 Gabapentin 1 cap PO BEDTIME 01/14/22 Apixaban [Eliquis] 5 mg PO BID #60 tab 01/15/22 Atorvastatin Calcium 40 mg PO DAILY #30 01/15/22 Furosemide 40 mg PO BID #30 01/15/22 Insulin -Regular Human [Novolin -R*] 1 unit SQ PRN 01/15/22 Insulin 70/30 NPH/Reg Human [Novolin 70/30*] 1 unit SQ PRN 01/15/22 Levothyroxine Sodium [Levothyroxine] 50 mcg PO DAILY 30 Days #30 01/15/22 Metformin HCl 500 mg PO DAILY #30 01/15/22 Metoprolol Succinate 0.5 tab PO DAILY 30 Days #30 01/15/22 Omeprazole 20 mg PO DAILY 30 Days #30 01/15/22 Spironolactone 25 mg PO DAILY #30 01/15/22 Tamsulosin [Flomax*] 0.4 mg PO DAILY #30 cap 01/15/22 Venlafaxine HCl 75 mg PO BID 30 Days #60 01/15/22 glipiZIDE [Glipizide] 10 mg PO DAILY #30 01/15/22 - Past Medical/Surgical History Diabetic: Yes -: CAD/[place] -: GERD -: Hypertension -: Anxiety/depression -: DM insulin dependent -: Hypothyroidism -: enlarged prostate -: cataract in the left eye -: fibromyalgia -: hyperlipidemia -: neuropathy -: Systolic CHF -: pacemaker placement May 2017 -: triple bypass 2002 4 stents -: back surgeries x 6 -: arthroscopic surgeries bilateral knees -: left forearm rodding -: Cholecystectomy -: Appendectomy -: tonsillectomy Psychosocial/ Personal History: Patient lives at home. He does not work. - Family History Mother -: Heart disease, Hypertension grandparents -: Diabetes, Stroke - Social History Smoking Status: Never smoker Alcohol use: No CD- Drugs: No Caffeine use: Yes Place of Residence: Home Review of Systems Respiratory: Shortness of Breath Cardiovascular: Chest Pain Physical Examination - Vital Signs Respirations: 18 Pulse Ox (%): 97 - Physical Exam General: Alert, In no apparent distress HEENT: Atraumatic, PERRLA, EOMI, Sclerae nonicteric Neck: Supple, 2+ carotid pulse no bruit, No LAD, Without JVD or thyroid abnormality Respiratory: Clear to auscultation bilaterally, Normal air movement Cardiovascular: Regular rate/rhythm, Normal S1 S2 Gastrointestinal: Normal bowel sounds, No tenderness Musculoskeletal: No tenderness Integumentary: No rashes Neurological: Normal speech, Sensation intact, Normal affect - Studies Laboratory Data (last 24 hrs) 01/17/22 16:55: WBC 7.90 D, Hgb 10.4 L, Hct 31.2 L, Plt Count 230 01/17/22 16:55: Sodium 139, Potassium 5.5 H, BUN 24 H, Creatinine 1.30, Glucose 181 H Assessment and Plan - Problems (Diagnosis) (1) Chest pain Current Visit: Yes Status: Acute Qualifiers: Chest pain type: unspecified Qualified Code(s): R07.9 - Chest pain, unspecified (2) CAD (coronary artery disease) Current Visit: Yes Status: Chronic Qualifiers: Coronary Disease-Associated Artery/Lesion type: bypass graft [place] vs. 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: with [facility] use Diabetes mellitus complication status: with hyperglycemia Qualified Code(s): E11.65 - Type 2 diabetes mellitus with hyperglycemia; 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 Will check 1 more, monitor on telemetry, cardiology consult in place -Continue home medications of lisinopril, spironolactone, atorvastatin, metoprolol, and eliquis -Aspirin daily. Morphine PRN pain -ACHS Accu-Chek, moderate sliding scale insulin. Diabetic diet -Patient supposed to be on Lasix 40 mg BID but has been out of his medication. Chest CT showing moderately large bilateral pleural effusions. Will reinitiate. Last echo 3 weeks ago showing EF of 23% with severe global hypokinesis and mild pulmonary hypertension. -Monitor and replete electrolytes per protocol -Eliquis for VTE prophylaxis -Full code Discharge Plan: Home Plan to discharge in: 24 Hours - Advance Directives Does patient have a Living Will: No Does patient have a Durable POA for Healthcare: No - Code Status/Comfort Care Code Status Assessed: Yes (Full) Critical Care: No Time Spent Managing Pts Care (In Minutes): 50
[2022-01-18 02:44] LABS: Absolute Lymphocytes (CBC) 1.3 K/uL (0.7-4.9); Lymphocytes % 18.6 % (15.3-44.8); MCV 91.5 fL (80-100); MPV 7.7 fL (7.6-11.3); RBC Red Blood Cell Count 3.27 M/uL (4.33-5.43)
[2022-01-18 03:08] LABS: Magnesium 2.3 mg/dL (1.8-2.4); Phosphorus 3.8 mg/dL (2.5-4.9); Potassium 5.2 mmol/L (3.5-5.1); Troponin High Sensitivity 22.8 pg/mL (<58.9)
[2022-01-18 03:09] LABS: Thyroid Stimulating Hormone 6.56 uIU/mL (0.360-3.740)
[2022-01-18] MEDS ORDERED: D50W 25 GM/50 ML SYRINGE IV PRN (05:24)
[2022-01-18] MEDS ORDERED: GLUCAGON 1 MG/VIAL IM PRN (05:24)
[2022-01-18 05:27] VITALS: BMI 24.5
--- NOTE | 2022-01-18 07:18 | P.PN ---
Date of Service: 01/18/22 Subjective: no significant change since admission slightly less chest pain ROS: 10 point ROS as noted above, otherwise negative Physical exam GEN: Alert, oriented, NAD HEENT: Normal conjunctiva, sclera anicteric CV: Regular rate and rhythm, no edema Pulm: Non-labored respirations on room air, diminished bilaterally with b/l crackles ABD: Soft, nontender, nondistended MSK: s/p b/l BKAs Neuro: Normal speech, normal affect Problem List Chest pain h/o CAD s/p CABG with pacemaker/defibrillator acute on chronic systolic CHF (HFrEF) IDDM 2 HLD HTN Hypothyroidism afib on eliquis significant cardiac history and recurrent symptoms trop negative x3 patient states he does not receive his next check until 01/22, can't afford home meds has not picked up any home meds all month - discharged a few times already and bounces back due to no meds cardiology consulted, plan for cardiac cath today Continue home medications of lisinopril, spironolactone, atorvastatin, metoprolol Aspirin daily ACHS Accu-Chek, moderate sliding scale insulin. Diabetic diet Patient is supposed to be on Lasix 40 mg BID but has been out of his medication / never picked up. Chest CT: moderate - large bilateral pleural effusions. Last echo 3 weeks ago showing EF of 23% with severe global hypokinesis and mild pulmonary hypertension. start IV lasix 40mg BID, monitor BP and UOP/renal function Code: full Dispo: home, ~1 day Time Spent Managing Pts Care (In Minutes): 35
[2022-01-18] MEDS: INSULIN -REGULAR HUMAN 50 UNIT/0.5 ML ML SQ SCH ×4 (07:30→21:00)
[2022-01-18] MEDS ORDERED: ONDANSETRON 4 MG/2 ML VIAL ONE ×2 (07:41→11:54)
[2022-01-18] MEDS ORDERED: MORPHINE 4 MG/ML SYR ONE ×2 (07:41→11:54)
[2022-01-18] MEDS: MORPHINE 4 MG/ML SYR IV PRN ×4 (07:50→21:48)
[2022-01-18] MEDS: ONDANSETRON 4 MG/2 ML VIAL IV PRN ×3 (07:51→21:48)
--- NOTE | 2022-01-18 08:14 | EKG ---
Test Date: 2022-01-17 Test Time: 16:58:31 [employer] Control Room Operator: MICK MEASUREMENT RESULTS: Intervals: Rate: 86 AK: 188 QRSD: 154 QT: 424 QTc: 507 [place]: P: 48 AK: 188 QRS: -54 T: 119 INTERPRETIVE STATEMENTS: Electronic ventricular pacemaker Compared to ECG 01/13/2022 15:50:01 No significant changes Electronically Signed On 01-18-22 08:12:05 CDT by Luca Royal
[2022-01-18 13:47] LABS: Specific Gravity 1.021 (1.005-1.030); Urine Bilirubin NEGATIVE (Negative); Urine Blood 1+ (Negative); Urine Clarity Clear (Clear); Urine Color Light-Yellow (Yellow); Urine Glucose NEGATIVE (Negative); Urine Protein 2+ (Negative); Urine Urobilinogen Normal (Normal)
[2022-01-18] MEDS ORDERED: D10W 250 ML BAG IV PRN (15:00)
[2022-01-18] MEDS ORDERED: ALBUTEROL 2.5 MG/3 ML NEB SOL NEB PRN (15:00)
[2022-01-18] MEDS ORDERED: CYCLOBENZAPRINE 10 MG TAB PO PRN (17:32)
[2022-01-18] MEDS: FUROSEMIDE 40 MG/4 ML VIAL IV SCH (18:11)
[2022-01-18] MEDS: GABAPENTIN 300 MG CAP PO SCH (21:48)
[2022-01-18] MEDS: VENLAFAXINE HCL 75 MG TABLET PO SCH (21:48)
[2022-01-18] MEDS: DOCUSATE NA 100 MG CAP PO SCH (21:48)
[2022-01-19 03:58] LABS: Hematocrit 29.2 % (39.6-49.0); Lymphocytes % 16.4 % (15.3-44.8); MCV 90.8 fL (80-100); MPV 8.1 fL (7.6-11.3); RBC Red Blood Cell Count 3.22 M/uL (4.33-5.43)
[2022-01-19 04:09] LABS: Potassium 4.7 mmol/L (3.5-5.1)
[2022-01-19] MEDS: LEVOTHYROXINE SOD 0.05 MG TABLET PO SCH (06:03)
[2022-01-19] MEDS: ONDANSETRON 4 MG/2 ML VIAL IV PRN ×2 (06:03→10:31)
[2022-01-19] MEDS: MORPHINE 4 MG/ML SYR IV PRN ×3 (06:03→21:04)
[2022-01-19] MEDS: INSULIN -REGULAR HUMAN 50 UNIT/0.5 ML ML SQ SCH ×4 (07:30→21:00)
[2022-01-19] MEDS ORDERED: HOME MED 1 EA UNK (Levothyroxine Sodium [Levothyroxine] 50 MCG Capsule) PO SCH (09:00)
[2022-01-19] MEDS: VENLAFAXINE HCL 75 MG TABLET PO SCH ×2 (10:31→21:03)
[2022-01-19] MEDS: FUROSEMIDE 40 MG/4 ML VIAL IV SCH ×2 (10:31→17:37)
[2022-01-19] MEDS: TAMSULOSIN 0.4 MG SR CAP PO SCH (10:31)
[2022-01-19] MEDS: METOPROLOL XL 25 MG TAB PO SCH (10:32)
[2022-01-19] MEDS: lisinopriL 5 MG TAB PO SCH (10:32)
[2022-01-19] MEDS: ATORVASTATIN 40 MG TAB PO SCH (10:32)
[2022-01-19] MEDS: SPIRONOLACTONE 25 MG TABLET PO SCH (10:32)
[2022-01-19] MEDS: DOCUSATE NA 100 MG CAP PO SCH ×2 (10:33→21:03)
--- NOTE | 2022-01-19 15:15 | P.PN ---
Date of Service: 01/19/22 Subjective: respirations improving continues with chest pain diuresing ROS: 10 point ROS as noted above, otherwise negative Physical exam GEN: Alert, oriented, NAD CV: Regular rate and rhythm, no edema Pulm: Non-labored respirations on room air, diminished bilaterally with b/l crackles ABD: Soft, nontender, nondistended MSK: s/p b/l BKAs Neuro: Normal speech, normal affect Problem List Chest pain h/o CAD s/p CABG with pacemaker/defibrillator acute on chronic systolic CHF (HFrEF) IDDM 2 HLD HTN Hypothyroidism afib on eliquis significant cardiac history and recurrent symptoms trop negative x3 patient states he does not receive his next check until 01/22, can't afford home meds has not picked up any home meds all month - discharged a few times already and bounces back due to no meds cardiology consulted, plan for cardiac cath tomorrow; delayed due to scheduling issues Continue home medications of lisinopril, spironolactone, atorvastatin, metoprolol Aspirin daily ACHS Accu-Chek, moderate sliding scale insulin. Diabetic diet Patient is supposed to be on Lasix 40 mg BID but has been out of his medication / never picked up. Chest CT: moderate - large bilateral pleural effusions. Last echo 3 weeks ago showing EF of 23% with severe global hypokinesis and mild pulmonary hypertension. started IV lasix 40mg BID 01/18, monitor BP and UOP/renal function Code: full Dispo: home, ~1 day pending cardiac cath tomorrow Time Spent Managing Pts Care (In Minutes): 35
[2022-01-19] MEDS: GABAPENTIN 300 MG CAP PO SCH (22:07)
--- NOTE | 2022-01-19 22:17 | CON ---
Date of Consultation: 01/18/[address] Parrish. Reason For Consultation: Chest pain. History Of Present Illness: Mr. Rooney is a 61-year-old male, has had a history of CVA, bilateral BKA, CABG, pacemaker, hypertension, diabetes, dyslipidemia, coronary artery disease, and depression. He takes Eliquis at home for atrial fibrillation, comes in with unstable angina, negative troponin, elevated BNP at 7900, congestive heart failure symptoms. Past Medical History: As stated above. Allergies: NONE. Review of Systems: Negative. Social History: Negative. Family History: Noncontributory. Medications At Home: Include Eliquis, Lasix, aspirin, Lipitor, Neurontin, metformin, metoprolol, Syn throid, Aldactone, lisinopril, and glipizide. Physical Examination: Vital Signs: Stable, afebrile, sinus rhythm. HEENT: Negative. NECK: Supple. No bruit. Chest: Reveals some rales at both bases. Cardiac: Revealed a regular rate with S4 gallops. Abdomen: Benign. Extremities: Revealed status post bilateral BKA. Diagnostic Data: As stated earlier. Impression And Plan: Patient with coronary artery disease, status post coronary artery bypass graft with congestive heart failure, unstable angina symptoms. He is on Eliquis, which has been held. He takes that for atrial fibrillation. He is in sinus rhythm now. We will plan a left heart catheteriz ation to define his coronary anatomy. Patient understands the risks and benefits of the procedure an d he agrees to proceed. He needs to be gently diuresed. His problems otherwise includes pacemaker h istory, dyslipidemia, hypertension, diabetes, and depression. All these are stable at this point. W e will see what the catheterization shows before making further decision. GEOFF/VAMSHI Voice ID: [id number] Report ID: [id number]
--- NOTE | 2022-01-20 03:03 | PN ---
Admitted with unstable angina, elevated BNP, Eliquis has been held. Has a history of pacemaker, CABG , status post bilateral BKA, hypertension, dyslipidemia, diabetes, CVA and depression. We had plan t o do a heart catheterization on him in the morning on 01/20/2022. The plan is still the same. He is presently on lisinopril, spironolactone, metoprolol, Lasix, and atorvastatin. His vital signs are s table. He is at a paced rhythm. His troponin was negative, but his symptoms are consistent with uns table angina. EGOFF/MODL Voice ID: [id number] Report ID: [id number]
[2022-01-20 03:33] LABS: Hematocrit 30.6 % (39.6-49.0); Lymphocytes % 17.5 % (15.3-44.8); MCV 89.6 fL (80-100); MPV 7.9 fL (7.6-11.3); RBC Red Blood Cell Count 3.41 M/uL (4.33-5.43)
[2022-01-20 03:49] LABS: Potassium 4.2 mmol/L (3.5-5.1)
[2022-01-20] MEDS: ONDANSETRON 4 MG/2 ML VIAL IV PRN (03:52)
[2022-01-20] MEDS: MORPHINE 4 MG/ML SYR IV PRN ×2 (03:52→22:41)
[2022-01-20] MEDS: LEVOTHYROXINE SOD 0.05 MG TABLET PO SCH (06:00)
[2022-01-20] MEDS: lisinopriL 5 MG TAB PO SCH (06:00)
[2022-01-20] MEDS: METOPROLOL XL 25 MG TAB PO SCH (06:01)
--- NOTE | 2022-01-20 07:23 | RAD REPORT ---
EXAM DESCRIPTION: RAD - Chest Single View - 01/20/2022 5:49 am CLINICAL HISTORY: Pleural effusions, bilateral COMPARISON: CT chest 01/17/2022, portable chest 01/17/2022 TECHNIQUE: AP portable chest image was obtained 01/20/2022 5:49 am . FINDINGS: Lung volumes are low accentuating the baseline interstitial pattern. No new or progressive lung parenchymal process. Heart and vasculature are normal range for portable imaging sternotomy wir es and pacemaker again noted. No pneumothorax seen. Bilateral pleural effusions are still evident but much better visualized on CT chest imaging. No suspicion for enlargement. IMPRESSION: No new or progressive cardiopulmonary finding. Bilateral pleural effusions are still evident, better visualized on CT imaging.
[2022-01-20] MEDS: INSULIN -REGULAR HUMAN 50 UNIT/0.5 ML ML SQ SCH ×4 (07:30→21:00)
[2022-01-20] MEDS: TAMSULOSIN 0.4 MG SR CAP PO SCH (09:00)
[2022-01-20] MEDS: ATORVASTATIN 40 MG TAB PO SCH (09:00)
[2022-01-20] MEDS: DOCUSATE NA 100 MG CAP PO SCH ×2 (09:00→22:27)
[2022-01-20] MEDS: VENLAFAXINE HCL 75 MG TABLET PO SCH ×2 (09:00→22:26)
[2022-01-20] MEDS: SPIRONOLACTONE 25 MG TABLET PO SCH (09:00)
[2022-01-20] MEDS: FUROSEMIDE 40 MG/4 ML VIAL IV SCH (10:15)
[2022-01-20] MEDS ORDERED: HEPA 1000U/500MLS 2,000 UNIT/1,000 ML BAG IV ONE (10:38)
--- NOTE | 2022-01-20 14:02 | EKG ---
Test Date: 2022-01-14 Test Time: 09:42:30 Ceo & Board Director: BELLA MEASUREMENT RESULTS: Intervals: Rate: 78 MI: 152 QRSD: 162 QT: 442 QTc: 503 [place]: P: 25 MI: 152 QRS: 137 T: 243 INTERPRETIVE STATEMENTS: Atrial-sensed ventricular-paced rhythm Abnormal ECG Compared to ECG 01/13/2022 15:50:01 No significant changes Electronically Signed On 01-20-22 14:01:08 CDT by Kavin Keenan
[2022-01-20] MEDS ORDERED: MIDAZOLAM HCL 2 MG/2 ML INJ ONE (15:39)
[2022-01-20] MEDS ORDERED: FENTANYL CITR 100 MCG/2 ML ONE (15:39)
[2022-01-20] MEDS ORDERED: CLOPIDOGREL 75 MG TABLET ONE (15:40)
[2022-01-20] MEDS ORDERED: ASPIRIN 325 MG TAB ONE (15:40)
[2022-01-20] MEDS ORDERED: TICAGRELOR 90 MG TABLET PO ONE (15:41)
[2022-01-20] MEDS ORDERED: ATROPINE SULF 1 MG/10 ML SYR IV ONE (15:49)
[2022-01-20] MEDS ORDERED: NA CHLORIDE 0.9% 500 ML ONE (16:00)
--- NOTE | 2022-01-20 16:48 | P.PN ---
Date of Service: 01/20/22 Subjective: respirations improving chest pain improving diuresing well ROS: 10 point ROS as noted above, otherwise negative Physical exam GEN: Alert, oriented, NAD CV: Regular rate and rhythm, no edema Pulm: Non-labored respirations on room air, diminished bilaterally with b/l crackles ABD: Soft, nontender, nondistended MSK: s/p b/l BKAs Neuro: Normal speech, normal affect Problem List Chest pain, unstable angina h/o CAD s/p CABG with pacemaker/defibrillator acute on chronic systolic CHF (HFrEF) IDDM 2 HLD HTN Hypothyroidism afib on eliquis concern for unstable angina significant cardiac history and recurrent symptoms trop negative x3 patient states he does not receive his next check until 01/22, can't afford home meds has not picked up any home meds all month - discharged a few times already and bounces back due to no meds cardiology consulted, plan for cardiac cath tomorrow; delayed due to scheduling issues x2 Continue home medications of lisinopril, spironolactone, atorvastatin, metoprolol Aspirin daily ACHS Accu-Chek, moderate sliding scale insulin. Diabetic diet Patient is supposed to be on Lasix 40 mg BID but has been out of his medication / never picked up. Chest CT: moderate - large bilateral pleural effusions. Last echo 3 weeks ago showing EF of 23% with severe global hypokinesis and mild pulmonary hypertension. started IV lasix 40mg BID 01/18, monitor BP and UOP/renal function transition back to PO on 01/20 Code: full Dispo: home, ~1 day pending cardiac cath tomorrow Time Spent Managing Pts Care (In Minutes): 35
[2022-01-20] MEDS: FUROSEMIDE 40 MG TABLET PO SCH (17:53)
--- NOTE | 2022-01-20 19:05 | OP ---
Date of Procedure: 01/20/2022 Surgeon: BEHZAD ORR Procedure Performed: Selective coronary angiogram. Indication: Unstable angina. Access: Right femoral artery 6-Afghan closed with 6-Afghan Angio-Seal. Complications: None. Bleeding: Less than 10 mL. Anesthesia: Total sedation time was 25 minutes. Used fentanyl and Versed. Description Of Procedure: After risks, benefits, and alternatives were explained, the patient agreed to the procedure and signed informed consent. The patient was brought into cardiac catheterization laboratory, prepped and draped in usual sterile fashion. Then, we accessed right femoral artery usin g micropuncture kit, ultrasound guidance and fluoroscopy and placed a 6-Afghan Cozad sheath and to ok a 6-Afghan JL4 catheter into the aortic root and engaged the left main, took standard views and th en took a 6-Afghan JR4 and engaged the RCA, took standard views. All arteries were vascularized. Th e patient claimed that he had a bypass surgery in the past; however, could not find any grafts and th e NULL is very small and not attached to the heart. I removed the catheter and sheath, placed a 6-Fr ench Angio-Seal for closure with good hemostasis. Findings: 1.Left main. It is normal with some luminal irregularities. 2.LAD, very long stent from the proximal to almost at the distal portion, patent with a 30% distal s tent ISR, but TARA-3 flow. Diagonal branch 1 is jailed, but the stent has about 60% stenosis. Diago nal 2 branch with luminal irregularities and the LAD distally is very small vessel. 3.Left circumflex; moderate-size vessel. In the mid segment, there is 40% stenosis, but there is OM 1 branch that has patent stent. 4.RCA; largest vessel of his arteries with a proximal to mid stent and then distal stent was patent, no ISR, but the PLV and the PDA are very small, diffusely diseased. Conclusion: 1.Severe tribe coronary artery disease, triple-vessel, status post revascularization with stents an d all stents are patent with only ISR of 30% to the distal LAD stent. Otherwise, all the stents are patent. 2.No grafts were found. Plan: Aggressive medical management, cardiac risk factor modification, beta-ulises and coronary art bertrand vasodilators. SR/MODL Voice ID: [id number] Report ID: [id number]
[2022-01-20] MEDS: GABAPENTIN 300 MG CAP PO SCH (22:26)
[2022-01-21] MEDS: LEVOTHYROXINE SOD 0.05 MG TABLET PO SCH (05:40)
[2022-01-21 05:43] VITALS: O2SAT 97
[2022-01-21 06:41] LABS: Magnesium 2.2 mg/dL (1.8-2.4); Potassium 3.7 mmol/L (3.5-5.1)
[2022-01-21] MEDS: INSULIN -REGULAR HUMAN 50 UNIT/0.5 ML ML SQ SCH ×2 (07:30→11:30)
[2022-01-21 08:47] VITALS: BP 101/56; TEMP 97
[2022-01-21] MEDS: SPIRONOLACTONE 25 MG TABLET PO SCH (09:00)
[2022-01-21] MEDS ORDERED: POTASSIUM CL SA 10 MEQ TAB PO ONE (09:00)
[2022-01-21] MEDS: FUROSEMIDE 40 MG TABLET PO SCH (09:00)
[2022-01-21] MEDS: DOCUSATE NA 100 MG CAP PO SCH (09:36)
[2022-01-21] MEDS: ATORVASTATIN 40 MG TAB PO SCH (09:37)
[2022-01-21] MEDS: METOPROLOL XL 25 MG TAB PO SCH (09:37)
[2022-01-21] MEDS: lisinopriL 5 MG TAB PO SCH (09:38)
[2022-01-21] MEDS: VENLAFAXINE HCL 75 MG TABLET PO SCH (09:39)
[2022-01-21] MEDS: TAMSULOSIN 0.4 MG SR CAP PO SCH (09:43)
--- NOTE | 2022-01-21 23:35 | P.DS ---
Admission Date: 01/18/22 Discharge Date: 01/21/22 Disposition: ROUTINE DISCHARGE Discharge Condition: GOOD Reason for Admission: Chest Pain Consultations: Cardiology - Dr. Keenan / Dr. Royal Brief History of Present Illness: 61-year-old male with history of CAD s/p CABG with pacemaker/defibrillator, afib on eliquis, hypertension, hyperlipidemia, IDDM, hypothyroidism, and systolic CHF who presented to the ED via EMS with complaints of chest pain that radiates to his left arm. They gave him 324 mg aspirin en route. He has had several cardiac works this month, found to have an EF of 23% with severe global hypokinesis and mild pulmonary hypertension, and discharged with life vest. Cardiology has recommended outpatient stress test, echocardiogram, and lower extremity arterial Doppler. Patient has come to the ED 5 times this month for chest pain and he continues to be noncompliant with his medications. His labs today are significant for BNP 7944, troponin HS 22, potassium 5.5. He was also complaining of shortness of breath so CT chest angio was obtained and showed No pulmonary emboli identified. Moderately large bilateral pleural effusions, similar to December 21 imaging. He received morphine and zofran in the ED with improvement in pain. Vital signs stable. Hospital Course: Problem List Chest pain, unstable angina h/o CAD s/p CABG with pacemaker/defibrillator acute on chronic systolic CHF (HFrEF) IDDM 2 HLD HTN Hypothyroidism afib on eliquis Patient presented with chest pain and shortness of breath. There was concern for unstable angina, and imaging revealed bilateral pleural effusions which are not new, but were increased. 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 He diuresed well here and had improvement of his symptoms with resumption of home meds. Cardiology was consulted for unstable angina. Troponins remained negative, EKG without new changes. He underwent cardiac catheterization on 01/20 with mild diffuse disease, no procedural intervention required. 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 No changes in medications. Physical exam GEN: Alert, oriented, NAD CV: Regular rate and rhythm, no edema Pulm: Non-labored respirations on room air, diminished bilaterally ABD: Soft, nontender, nondistended MSK: s/p b/l BKAs Neuro: Normal speech, normal affect Vital Signs/Physical Exam: Temp Pulse Resp BP Pulse Ox 97.0 F 71 16 101/56 L 99 01/21/22 08:00 01/21/22 09:38 01/21/22 08:00 01/21/22 09:38 01/21/22 08:00 Laboratory Data at Discharge: WBC 5.50 K/uL (4.3-10.9) 01/20/22 02:34 Hgb 10.6 g/dL (13.6-17.9) L 01/20/22 02:34 Hct 30.6 % (39.6-49.0) L 01/20/22 02:34 Plt Count 248 K/uL (152-406) 01/20/22 02:34 Sodium 135 mmol/L (136-145) L 01/21/22 05:20 Potassium 3.7 mmol/L (3.5-5.1) 01/21/22 05:20 BUN 21 mg/dL (7-18) H 01/21/22 05:20 Creatinine 1.16 mg/dL (0.55-1.3) 01/21/22 05:20 Glucose 124 mg/dL (74-106) H 01/21/22 05:20 Phosphorus 3.8 mg/dL (2.5-4.9) 01/18/22 02:19 Magnesium 2.2 mg/dL (1.8-2.4) 01/21/22 05:20 Triglycerides 64 mg/dL (<150) 01/18/22 02:19 Cholesterol 123 mg/dL (<200) 01/18/22 02:19 HDL Cholesterol 47 mg/dL (40-60) 01/18/22 02:19 Cholesterol/HDL Ratio 2.62 01/18/22 02:19 Home Medications: lisinopriL [Prinivil*] 2.5 mg PO DAILY 11/19/18 Aspirin Chewable [Aspirin Chewable*] 81 mg PO DAILY 05/11/19 ondansetron HCL [Zofran] 4 mg PO Q8H PRN 08/01/19 Cyclobenzaprine [Flexeril*] 10 mg PO BID PRN 12/21/21 Dicyclomine [Bentyl*] 20 mg PO QID 12/21/21 Docusate Sodium 100 mg PO BID 12/21/21 Gabapentin 800 mg PO BID 12/21/21 Hydrocodone 5/APAP 325 [[place] 5/325*] 1 tab PO Q6H PRN #12 tab 12/28/21 Gabapentin 1 cap PO BEDTIME 01/14/22 Apixaban [Eliquis] 5 mg PO BID #60 tab 01/15/22 Atorvastatin Calcium 40 mg PO DAILY #30 01/15/22 Furosemide 40 mg PO BID #30 01/15/22 Insulin -Regular Human [Novolin -R*] 1 unit SQ PRN 01/15/22 Insulin 70/30 NPH/Reg Human [Novolin 70/30*] 5 unit SQ PRN 01/15/22 Levothyroxine Sodium [Levothyroxine] 50 mcg PO DAILY 30 Days #30 01/15/22 Metformin HCl 500 mg PO DAILY #30 01/15/22 Metoprolol Succinate 0.5 tab PO DAILY 30 Days #30 01/15/22 Omeprazole 20 mg PO DAILY 30 Days #30 01/15/22 Spironolactone 25 mg PO DAILY #30 01/15/22 Tamsulosin [Flomax*] 0.4 mg PO DAILY #30 cap 01/15/22 Venlafaxine HCl 75 mg PO BID 30 Days #60 01/15/22 glipiZIDE [Glipizide] 10 mg PO DAILY #30 01/15/22 Physician Discharge Instructions: Patient presented with chest pain and shortness of breath. There was concern for unstable angina, and imaging revealed bilateral pleural effusions which are not new, but were increased. 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 He diuresed well here and had improvement of his symptoms with resumption of home meds. Cardiology was consulted for unstable angina. Troponins remained negative, EKG without new changes. He underwent cardiac catheterization on 01/20 with mild di ffuse disease, no procedural intervention required. 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 No changes in medications. Time spent managing pt's care (in minutes): 45
== END 2022-01-21 12:52 | disposition home or self-care (01) | DRG 286 ==
LOC: ER 16:52 → ERHOLD 20:32 → 4TH 01-18 15:38 → OBSVTOIN 01-18 16:30
PROVIDERS: ADMIT Internal Medicine; ATTEND Hospitalist
PROC: 4A023N7 Measurement of Cardiac Sampling and Pressure, Left Heart, Percutaneous Approach (ICD-10-PCS; principal; 2022-01-20)
PROC: B2111ZZ Fluoroscopy of Multiple Coronary Arteries using Low Osmolar Contrast (ICD-10-PCS; 2022-01-20)
DX: I25.700 Atherosclerosis of coronary artery bypass graft(s), unspecified, with unstable angina pectoris (principal); I50.23 Acute on chronic systolic (congestive) heart failure; I69.354 Hemiplegia and hemiparesis following cerebral infarction affecting left non-dominant side; I11.0 Hypertensive heart disease with heart failure; K21.9 Gastro-esophageal reflux disease without esophagitis; M79.7 Fibromyalgia; E78.5 Hyperlipidemia, unspecified; E11.40 Type 2 diabetes mellitus with diabetic neuropathy, unspecified; E11.65 Type 2 diabetes mellitus with hyperglycemia; E03.9 Hypothyroidism, unspecified; I27.20 Pulmonary hypertension, unspecified; F32.A Depression, unspecified; I48.91 Unspecified atrial fibrillation; I25.2 Old myocardial infarction; Z95.1 Presence of aortocoronary bypass graft; Z95.0 Presence of cardiac pacemaker; Z79.01 Long term (current) use of anticoagulants; Z79.4 Long term (current) use of insulin; Z79.84 Long term (current) use of oral hypoglycemic drugs; Z79.82 Long term (current) use of aspirin; Z89.512 Acquired absence of left leg below knee; Z90.49 Acquired absence of other specified parts of digestive tract; Z89.511 Acquired absence of right leg below knee; Z79.899 Other long term (current) drug therapy; Z95.810 Presence of automatic (implantable) cardiac defibrillator; Z79.890 Hormone replacement therapy; Z20.822 Contact with and (suspected) exposure to COVID-19
CPT/HCPCS: 36415; 71045; 71275; 76937; 80048; 80061; 81001; 82947; 83735; 83880; 84100; 84439; 84443; 84484; 85025; 87811; 93005; 93454; 94760; 96374; 96375; 99285; C1760; C1893; G0269; G0378; J1644; J1940; J2250; J2405; J3010; J7040; Q9966

== ENCOUNTER 2022-01-24 16:25 | Emergency (ER) | payer OTHER ==
--- OUTSIDE RECORDS SUMMARY | 2022-01-24 16:32 | XMS REPORT | Continuity of Care Document ---
:[address] [facility] t Address [address] [place] [address] Care Team Providers Name Role Phone MONIKA HALL MD Primary Care Physician [id number] Attending Clinician Unavailable Harshal Zhu Attending Clinician [...] Clinician Unavailable NICHELLE PALACIOS Attending Clinician Unavailable [id number] Admitting Clinician Unavailable Nika Martin Admitting Clinician [...] Number Effective Date Expiration Date S willow [facility] [id number] [email or web address] [id number] 2018spring 00:00:00 MATINAS BIOPHARMA [id number] 2004 LUCY Frankel [facility]:00 [facility] [...] y of l artery l artery 00:00: [place] disease) disease) 00 Medica l Branch Anemia [...] Added automatic ally from request for surgery [id number] Troponin I Troponin I Disease Active 2019- [...] 00:00: [place] involving involving 00 Medi uriel [place] 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 Type 2 Type 2 Disease Active 2019- Univers diabetes diabetes 01-17 ity of mellitus mellitus 00:00: [place] without without 00 Medical complicati complicati Br anch on, on, without without long-term long-term current current use of use of insulin insulin Essential Essential Disease Active Uni vers hypertensi hypertensi 01-17 it y of on on 00:00: [place] [id number] Medical Branch Other Other Disease Active Univers hyperlipid hyperlipid 01-17 it y of emia emia 00:00: [place] [id number] Medical Branch Stroke Stroke Disease Active Univers 5-12 ity of 00:00: [place] [facility] Left-sided Left-sided Disease Active U nivers weakness weakness 5- ity of 00:00: [place] [facility] Left sided Left sided Disease Active U nivers numbness numbness - ity of 00:00: [place] 00 Medical Branch S/P admn S/P admn Disease Active Unive rs tPA in tPA in 4-11 ity of diff fac diff fac 00:00: [place] w/n last w/n last 00 Medica l 24 hr bef 24 hr bef Bran ch adm to adm to crnt fac crnt fac Unstable Unstable Disease Active Unive rs angina angina 4-10 ity of 00:00: [place] [facility] Atypical Atypical Disease Active Unive rs chest pain chest pain 2-22 it y of 00:00: [place] [facility] [place] Chest pain Chest pain Problem Active [facility] Coronary CAD Problem Active [facility] artery (coronary [facility] disease artery Patient disease) Medical [facility] Diabetic DKA Problem Active [facility] ketoacidos (diabetic Esme es is ketoacidos Patien t es) Medical [facility] Hyperglyce Hyperglyce Problem Active [facility] bambi bambi [facility] Hypertensi Hypertensi Problem Active [facility] on on [facility] Pancreatit Pancreatit Problem Active C [facility] is is [facility] Uncontroll Uncontroll Problem Active C [facility] ed ed [facility] diabetes diabetes Patien t mellitus mellitus Medica l Center Allergies, Adverse Reactions, Alerts Allergy Allergy Status Severity Reaction(s) Onset Inactive Treating Comm ents Source Name Type Date Date Clinician No Known DA Active U 2021-0 [facility]ie 3-22 [place] [facility] 00:00: d 00 [facility] No Known DA Active U 2020-0 [facility] Allergie 3-22 [place] 00:00: d 00 [facility] No Known DA Active U 2017- [facility] Allergie 2-31 Clear s 00:00: Mejia 00 [facility] No Known DA Active U 2018-1 [facility] Allergie 2-31 Clear s 00:00: Mejia 00 [facility] No Known DA Active U 2018-0 [facility] Allergie 3-26 [place] 00:00: e 00 [facility] NO KNOWN Drug Active Univers ALLERGIE Class ity of S [place] [facility] Social History Social Habit Start Date Stop Date Quantity Comments Source History of Cigarette Smoker Universi ty of tobacco use [place] [facility] History SDOH University o f Alcohol Frequency [place] M edical [facility] History SDOH University o f Alcohol Std [place] Medical Drinks Branch History SDOH University o f Alcohol Binge [place] [facility] al [facility] Exposure to 2021-10-30 2021-11-09 Unable to assess Univers ity of SARS-CoV-2 00:00:00 15:13:00 [facility] [place] (event) Branch Alcohol intake 2021-11-05 2021-11-05 1.71 /d University of 00:00:00 00:00:00 [facility] [place] Branch Tobacco Comment 2021-11-03 2021-11-03 quit 15 years ago Un iversity of 00:00:00 00:00:00 [place] [facility] Education 2021-10-27 2021-10-27 9 University of 00:00:00 00:00:00 [place] [facility] History SDOH 2020-03-16 2020-03-16 3 University o f Financial 00:00:00 00:00:00 [place] [facility] History SDOH Food 2020-03-16 2020-03-16 2 Univers ity of Worry 00:00:00 00:00:00 [place] [facility] History SDPR Food 2020-03-16 2020-03-16 2 Univers ity of Scarcity 00:00:00 00:00:00 [place] [facility] History SDOH 2020-03-16 2020-03-16 1 University o f Transport Med 00:00:00 00:00:00 [place] [facility] History SDOH 2020-03-16 2020-03-16 1 University o f Transport Non-Med 00:00:00 00:00:00 [place] M edical [facility] Alcohol Comment 2019-07-18 2019-07-18 quit drinking [employer] of 00:00:00 00:00:00 2013 but drank [facility] heavily before Branch this Tobacco use and 2018-07-14 2018-07-14 Never used Universit y of exposure 00:00:00 00:00:00 [facility] Sex [birth year] Universit y of 00:00:00 00:00:00 [facility] Smoking Status Start Date Stop Date Source Former smoker 2018-07-14 00:00:00 2018-07-14 00:00:00 [facility] Medications Ordered Filled Start Stop [...] at 0215, 1 mL gabapentin 2021- Yes [id number] 300mg Take 1 Univers 300 mg 11-05 capsule by ity of capsule 00:00: 04:59 mouth 3 [place] 00 :00 (three) Medical times Branch daily for 10 days. gabapentin 2021- Yes [id number] 300mg Take 1 Univers 300 mg 11-05 capsule by ity of capsule 00:00: 04:59 mouth 3 [place] 00 :00 (three) Medical times Branch daily for 10 days. aspirin 81 2021- Yes [id number] 81mg Take 1 Univers mg chewable 6-16 07-17 tablet by it y of tablet 00:00: 04:59 mouth [place] 00 :00 daily for Medical 30 days. Branch aspirin 81 2021- Yes [id number] 81mg Take 1 Univers mg chewable 6-16 07-17 tablet by it y of tablet 00:00: 04:59 mouth [place] 00 :00 daily for Medical 30 days. Branch aspirin 81 2021- Yes [id number] 81mg Take 1 Univers mg chewable 6-16 07-17 tablet by it y of tablet 00:00: 04:59 mouth [place] 00 :00 daily for Medical 30 days. Branch proMETHazin Yes [id number] 25mg Take 1 Univers e 25 mg 6-03 tablet by ity of tablet 00:00: mouth [place] 00 every 6 Medical (six) Branch hours as needed for Nausea and Vomiting (N/V). proMETHazin Yes [id number] 25mg Take 1 Univers e 25 mg 6-03 tablet by ity of tablet 00:00: mouth [place] 00 every 6 Medical (six) Branch hours as needed for Nausea and Vomiting (N/V). proMETHazin 2022-0 Yes [id number] 25mg Take 1 Univers e 25 mg 6-03 tablet by ity of tablet 00:00: mouth [place] 00 every 6 Medical (six) Branch hours as needed for Nausea and Vomiting (N/V). fenofibrate 2021- No [id number] 134mg Take 1 Univers micronized -19 12- capsule by it y of 134 mg 00:00: 04:59 mouth [place] capsule 00 :00 daily for Medical 30 days. Branch lisinopriL 2021- No [id number] 2.5mg Take 1 Univers 2.5 mg -19 12- tablet by ity of tablet 00:00: 04:59 mouth [place] 00 :00 daily for Medical 30 days. Branch fenofibrate 2021- No [id number] 134mg Take 1 Univers micronized -19 12- capsule by it y of 134 mg 00:00: 04:59 mouth [place] capsule 00 :00 daily for Medical 30 days. Branch lisinopriL 2021- No [id number] 2.5mg Take 1 Univers 2.5 mg -19 12- tablet by ity of tablet 00:00: 04:59 mouth [place] 00 :00 daily for Medical 30 days. Branch fenofibrate 2021- No [id number] 134mg Take 1 Univers micronized -19 12- capsule by it y of 134 mg 00:00: 04:59 mouth [place] capsule 00 :00 daily for Medical 30 days. Branch lisinopriL 2021- No [id number] 2.5mg Take 1 Univers 2.5 mg -19 12- tablet by ity of tablet 00:00: 04:59 mouth [place] 00 :00 daily for Medical 30 days. Branch furosemide 2021- No [id number] 40mg Take 1 Univers 40 mg 5-30 [...] s: atrial fibrillati on calcitrioL 2021- No [id number] .5ug Take 1 Univers 0.5 mcg 5-30 06-30 capsule by ity o f capsule 00:00: 04:59 mouth [place] 00 :00 daily for Medical 30 days. Branch insulin NPH 2021- No [id number] 5U inject 5 Univers (HUMULIN N 5-30 06-30 Units ity of NPH U-100 00:00: 04:[place] 00 :00 skin every Medic al 100 unit/mL evening Branc h injection for 30 days. atorvastati 2021- No [id number] 40mg Take 1 Univers n 40 mg 5-30 -30 tablet by ity of tablet 00:00: 04:59 mouth at [place] 00 :00 bedtime Medical for 30 Branch days. carvediloL 2021- No [id number] 3.125mg Take 1 Univers 3.125 mg 5-30 06-30 tablet by ity o f tablet 00:00: 04:59 mouth 2 [place] 00 :00 (two) Medical times [place] daily with meals for 30 days. furosemide 2021- No [id number] 40mg Take 1 Univers 40 mg 5-30 06-30 tablet by ity of tablet 00:00: 04:59 mouth [place] 00 :00 every Medical morning Branch and evening for 30 days. apixaban 5 2021- No [id number] 5mg Take 1 Univ ers mg tablet 5-30 06-30 tablet by ity of 00:00: 04:59 mouth 2 [place] 00 :00 (two) Medical times [place] daily for 30 days. Indication s: atrial fibrillati on calcitrioL 2021- No [id number] .5ug Take 1 Univers 0.5 mcg 5-30 06-30 capsule by ity o f capsule 00:00: 04:59 mouth [place] 00 :00 daily for Medical 30 days. Branch insulin NPH 2021- No [id number] 5U inject 5 Univers (HUMULIN N 5-30 06-30 Units ity of NPH U-100 00:00: 04:59 [place]ULIN[place] 00 :00 skin every Medic al 100 unit/mL evening Branc h injection for 30 days. atorvastati 2021- No [id number] 40mg Take 1 Univers n 40 mg 5-30 06-30 tablet by ity of tablet 00:00: 04:59 mouth at [place] 00 :00 bedtime Medical for 30 Branch days. carvediloL 2021- No [id number] 3.125mg Take 1 Univers 3.125 mg 5-30 -30 tablet by ity o f tablet 00:00: 04:59 mouth 2 [place] 00 :00 (two) Medical times Branch daily with meals for 30 days. furosemide 2021- No [id number] 40mg Take 1 Univers 40 mg 5-30 [...] s: atrial fibrillati on calcitrioL 2021- No [id number] .5ug Take 1 Univers 0.5 mcg 5-30 -30 capsule by ity o f capsule 00:00: 04:59 mouth [place] 00 :00 daily for Medical 30 days. Branch insulin NPH 2021- No [id number] 5U inject 5 Univers (HUMULIN N 5-30 06-30 Units ity of NPH U-100 00:00: 04:59 [place] INSULIN[place] 00 :00 skin every Medic al 100 unit/mL evening Branc h injection for 30 days. atorvastati 2021- No [id number] 40mg Take 1 Univers n 40 mg 5-30 -30 tablet by ity of tablet 00:00: 04:59 mouth at [place] 00 :00 bedtime Medical for 30 Branch days. carvediloL 2021- No [id number] 3.125mg Take 1 Univers 3.125 mg 5-30 -30 tablet by ity o f tablet 00:00: 04:59 mouth 2 [place] 00 :00 (two) Medical times Branch daily with meals for 30 days. metFORMIN Yes [id number] 500mg Take 1 U nivers 500 mg 3-02 tablet by ity of tablet 00:00: mouth 2 [place] 00 (two) Medical times Branch daily with meals. metFORMIN 0 Yes [id number] 500mg Take 1 U nivers 500 mg 3-02 tablet by ity of tablet 00:00: mouth 2 [place] (two) Medical times Branch daily with meals. metFORMIN 0 Yes [id number] 500mg Take 1 U nivers 500 mg 3-02 tablet by ity of tablet 00:00: mouth 2 [place] (two) Medical times Branch daily with meals. albuterol Yes [id number] 2{puff} Inhale 2 Univers 90 2-21 Puffs 2 ity of mcg/actuati 00:00: (two) [place] on inhaler 00 times Medical daily. Branch collagenase Yes [id number] Use as Univers 250 2-21 directed ity of unit/gram 00:00: by office Juan J as ointment 00 Medical Branch cyclobenzap Yes [id number] 10mg Take 1 Univers rine 10 mg 2-21 tablet by ity of tablet 00:00: mouth 2 [place] (two) Medical times Branch daily as needed for Muscle Spasms. dextrometho Yes [id number] 10mL Take 10 mL Univers rphan-guaif 2-21 by mouth ity of enesin 00:00: every 6 [place] 10-100 mg/5 00 (six) Medical mL solution hours as Bran ch needed for Cough. HYDROcodone Yes 1{tbl} Take 1 Un charley -acetaminop 2-21 tablet by ity of hen 5-325 00:00: mouth [place] mg tablet 00 every 6 Medical (six) Branch hours as needed for Pain (scale 4-6). melatonin 3 0 Yes [id number] 3mg Take 1 Univers mg tablet 2-21 tablet by ity o f 00:00: mouth at [place] 00 bedtime. Medical Branch ondansetron 0 Yes [id number] 4mg Take 1 Univers 4 mg 2-21 tablet by ity of disintegrat 00:00: mouth [place] ing tablet 00 every 8 Medica l (eight) Branch hours as needed for Nausea and Vomiting (N/V). albuterol 0 Yes [id number] 2{puff} Inhale 2 Univers 90 2-21 Puffs 2 ity of mcg/actuati 00:00: (two) [place] on inhaler 00 times Medical daily. Branch collagenase Yes [id number] Use as Univers 250 2-21 directed ity of unit/gram 00:00: by office Juan J as ointment 00 Medical Branch cyclobenzap Yes [id number] 10mg Take 1 Univers rine 10 mg 2-21 tablet by ity of tablet 00:00: mouth 2 [place] 00 (two) Medical times Branch daily as needed for Muscle Spasms. dextrometho 0 Yes [id number] 10mL Take 10 mL Univers rphan-guaif 2-21 [...] Pain (scale 4-6). melatonin 3 0 Yes [id number] 3mg Take 1 Univers mg tablet 2-21 tablet by ity o f 00:00: mouth at [place] 00 bedtime. Medical Branch ondansetron 0 Yes [id number] 4mg Take 1 Univers 4 mg 2-21 tablet by ity of disintegrat 00:00: mouth [place] ing tablet 00 every 8 Medica l (eight) Branch hours as needed for Nausea and Vomiting (N/V). albuterol Yes [id number] 2{puff} Inhale 2 Univers 90 2-21 Puffs 2 ity of mcg/actuati 00:00: (two) [place] on inhaler 00 times Medical daily. Branch collagenase 0 Yes [id number] Use as Univers 250 2-21 directed ity of unit/gram 00:00: by office Juan J as ointment 00 Medical Branch cyclobenzap Yes [id number] 10mg Take 1 Univers rine 10 mg 2-21 tablet by ity of tablet 00:00: mouth 2 [place] 00 (two) Medical times Branch daily as needed for Muscle Spasms. dextrometho 0 Yes [id number] 10mL Take 10 mL Univers rphan-guaif 2-21 [...] for Pain (scale 4-6). melatonin 3 Yes [id number] 3mg Take 1 Univers mg tablet 2-21 tablet by ity o f 00:00: mouth at [place] 00 bedtime. Medical Branch ondansetron Yes [id number] 4mg Take 1 Univers 4 mg 2-21 tablet by ity of disintegrat 00:00: mouth [place] ing tablet 00 every 8 Medica l (eight) Branch hours as needed for Nausea and Vomiting (N/V). Aspirin 81 Aspirin 81 2018- No Alexis [address] Mg Tab.chew Mg Tab.chew 10-26 Brooke Frankel 00:00: 00:00 Patient 00 :00 [facility] Diflunisal Diflunisal 2015- No Todd Wynn [address] [facility] (Dolobid) (Dolobid) [facility] 500 Mg 500 Mg 00:00: 00:00 Patient Tablet, 500 Tablet, 500 00 :00 M edical Mg Oral Mg Oral [facility] Ondansetron Ondansetron 2015- No Todd Wynn [address] [facility] [address] Hcl Hcl 01-17 [place] as Luke s (Zofran*) 4 (Zofran*) 4 00:00: 00:00 needed for Patient Mg Tablet, Mg Tablet, 00 :00 Nausea M edical 4 Mg 4 Mg [facility] Sublingual Sublingual Clopidogrel Clopidogrel Yes 75 Daily [...] [facility] nophen nophen needed for [place] ([place] [facility] 10-325 10-325 Center Tablet) 1 [...] Mg 20 Mg [facility] Capsule.dr Lind.dr John [facility] Simvastatin Simvastatin Yes [address] 80 Mg 80 Mg [facility] Tablet Tablet [facility] Tamsulosin Tamsulosin Yes Daily [facility] Hcl 0.4 Mg Hcl 0.4 Mg Esme es Cap.er.24h Cap.er.24h Pat [facility] Tramadol Tramadol Yes 50 Four [...] Navid tietangela Mg Oral Mg Oral :00 [facility] Center Insulin Insulin 2016- [...] 06-17 [facility] Capsule., Capsule., 00:00 Patient :00 [facility] Insulin Insulin No Twice A [facility] [...] 25 Mg Oral 25 Mg Oral :00 [facility] Albuterol Albuterol [address] [...] 00:00 Patient Mg Oral Mg Oral :00 [facility] Center Methocarbam Methocarbam No [...] 00:00 Patient Mg Oral Mg Oral :00 [facility] Center Nitroglycer Nitroglycer No [...] Manjula ent Gm Oral Gm Oral :00 [facility] Temazepam Temazepam [address] (Restoril) (Restoril) 11-23 Theresa kes 30 Mg 30 Mg 00:00 Patient Capsule, 30 Capsule, 30 :00 M edical Mg Oral Mg Oral Center Tizanidine Tizanidine No [address] Hcl 4 Mg Hcl 4 Mg 11-23 [facility] Capsule, 4 Capsule, 4 00:00 Pa tient Mg Oral Mg Oral :00 [facility] Trazodone Trazodone No [address] Hcl 50 Mg Hcl 50 Mg 11-23 Luke s Tablet, 50 Tablet, 50 00:00 Pa tient Mg Oral Mg Oral :00 [facility] Venlafaxine Venlafaxine No 37.[address] [facility] Hcl 37.5 Mg Hcl 37.5 Mg 11-23 Day [facility] Tablet, Tablet, 00:00 Patient 37.5 Tab 37.5 Tab :00 Medical Oral Oral Center Cyclobenzap Cyclobenzap [address] rine Hcl 10 rine Hcl 10 12-19 Times A [facility] Mg Tablet, Mg Tablet, 00:00 Day Pa tient 10 Mg Oral 10 Mg Oral :00 [facility] ical [facility] Gabapentin Gabapentin No [address] 300 Mg 300 Mg 12-19 Times A [facility] Capsule, Capsule, 00:00 Day Patien t 600 Mg Oral 600 Mg Oral :00 M [facility] Pregabalin Pregabalin No 150 Twice A [facility] [...] Immunizations Ordered Filled Immunization Date Status Comments [facility] e Immunization Name Name Influenza Virus 2021-01-16 Completed Universit y of Vaccine 00:00:00 [facility] Influenza Virus 2021-01-16 Completed Universit y of Vaccine 00:00:00 [facility] Influenza Virus 2021-01-16 Completed Universit y of Vaccine 00:00:00 [facility] SARS-COV-2 COVID-19 2020-10-16 Completed Unive rsity of PEDRO/J&J VACCINE 00:00:00 [facility] SARS-COV-2 COVID-19 2020-10-16 Completed Unive rsity of PEDRO/J&J VACCINE 00:00:00 [facility] SARS-COV-2 COVID-19 2020-10-16 Completed Unive rsity of PEDRO/J&J VACCINE 00:00:00 [facility] Influenza Virus 2020-01-21 Completed Universit y of Vaccine 00:00:00 [facility] Influenza Virus 2020-01-21 Completed Universit y of Vaccine 00:00:00 [facility] Influenza Virus 2020-01-21 Completed Universit y of Vaccine 00:00:00 [facility] Zoster Vaccine 2019-07-17 Completed University of Recombinant 00:00:00 [facility] Zoster Vaccine 2019-07-17 Completed University of Recombinant 00:00:00 [facility] Zoster Vaccine 2019-07-17 Completed University of Recombinant 00:00:00 [facility] Td 2019-03-29 Completed University of 00:00:00 [facility] Td 2019-03-29 Completed University of 00:00:00 [facility] Td 2019-03-29 Completed University of 00:00:00 [facility] Influenza Virus 2018-02-18 Completed Universit y of Vaccine 00:00:00 [facility] Pneumococcal 2018-02-18 Completed University o f Polysaccharide, 00:00:00 [place] Med ical PPSV23 (PNEUMOVAX) [place] Influenza Virus 2018-02-18 Completed Universit y of Vaccine 00:00:00 [facility] Pneumococcal 2018-02-18 Completed University o f Polysaccharide, 00:00:00 [place] Med ical PPSV23 (PNEUMOVAX) [place] Influenza Virus 2018-02-18 Completed Universit y of Vaccine 00:00:00 [facility] Pneumococcal 2018-02-18 Completed University o f Polysaccharide, 00:00:00 [place] Med ical PPSV23 (PNEUMOVAX) [place] Influenza Virus 2008-03-19 Completed Universit y of Vaccine 00:00:00 [facility] Pneumococcal 2008-03-19 Completed University o f Polysaccharide, 00:00:00 [place] [facility] ical PPSV23 (PNEUMOVAX) Branch Influenza Virus 2008-03-19 Completed Universit y of Vaccine 00:00:00 [facility] Pneumococcal 2008-03-19 Completed University o f Polysaccharide, 00:00:00 [place] Med ical PPSV23 (PNEUMOVAX) Branch Influenza Virus 2008-03-19 Completed Universit y of Vaccine 00:00:00 [facility] Pneumococcal 2008-03-19 Completed University o f Polysaccharide, 00:00:00 [facility] ical PPSV23 (PNEUMOVAX) Branch Vital Signs Vital Name Observation Time Observation Value Comments Source Systolic blood 2021-11-09 23:00:00 124 mm[Hg] Univer sity of pressure [facility] Diastolic blood 2021-11-09 23:00:00 69 mm[Hg] Unive rsity of [facility] Heart rate 2021-11-09 23:00:00 72 /min [facility] ty [facility] Respiratory rate 2021-11-09 23:00:00 25 /min [facility] Oxygen saturation in 2021-11-09 23:00:00 98 /min University of Arterial blood by [place] [employer] uriel Pulse oximetry Branch Body temperature 2021-11-09 20:28:39 37.22 Sandy [facility] Body height 2021-11-09 20:16:[address] [facility] Body weight 2021-11-09 20:16:[address] [facility] BMI 2021-11-09 20:16:00 24.59 kg/m2 [facility] Systolic blood 2021-11-05 10:00:00 134 mm[Hg] Univer sity of [facility] Diastolic blood 2021-11-05 10:00:00 78 mm[Hg] Unive rsity of [facility] Heart rate 2021-11-05 10:00:00 81 /min [facility] ty [facility] Body temperature 2021-11-05 08:10:00 36.28 Sandy [facility] ersity [facility] Respiratory rate 2021-11-05 08:00:00 18 /min Univ ersity [facility] Oxygen saturation in 2021-11-05 08:00:00 99 /min University of Arterial blood by [employer] uriel Pulse oximetry Branch Body height 2021-11-05 05:48:[address] [facility] Body weight 2021-11-05 05:48:[address] [facility] BMI 2021-11-05 05:48:00 24.59 kg/m2 [facility] Procedures Procedure Date / Time Performing Clinician Source Performed XR CHEST 1 VW 2021-11-09 21:07:00 Troy Ku Mckenzie [facility] POCT GLUCOSE 2021-11-09 20:25:00 Troy Ku Mckenzie [facility] (AUTOMATED) [facility] Clinic MAGNESIUM 2021-11-09 20:19:00 [facility] TROPONIN I 2021-11-09 20:19:00 [facility] COMP. METABOLIC PANEL 2021-11-09 20:19:00 Troy Ku [facility] ([id number]) [facility] Clinic CBC WITH DIFF 2021-11-09 20:19:00 Troy Ku [facility] N-TERMINAL PRO-BNP 2021-11-09 20:19:00 Troy Ku [facility] XR CHEST 1 2021-11-05 06:38:35 Mihaela Martin [facility] [id number] 2020-08-11 00:00:00 ALDMO [facility] [id number] 2020-08-11 00:00:00 ALDMO [facility] [id number] 2020-08-11 00:00:00 ALDMO [facility] Clear [facility] [id number] 2020-08-11 00:00:00 ALDMO [facility] Computed tomography 2017-10-24 00:00:00 ALEXIS [facility] Patient angiography of brain [facility] angiography of chest 2017-10-23 00:00:00 KHAI WAHL V C HI [facility] Computed tomography of 2017-10-23 00:00:00 KHAI WAHL CH I [facility] Patient brain [facility] radiopaque contrast Computed tomography of 2017-04-04 [...] Clinicians Facility Department ID 2021-06-17 Outpatient 3 [id number] ENCKY MALDONADO ENCKY 10:24:03 [id number] 2021-06-17 Outpatient 3 [id number] ENCKY REF ENCKY 10:22:04 [id number] 2020-08-23 Inpatient HCACL FERNANDO [facility] 17:41:00 [id number] Psychiatric 2020-04-04 Inpatient Marko, HCAMN HCAMN [facility] 14:40:00 Harshal [id number] [facility] 2019-10-15 Inpatient RADHA Shah, HCAPM ENDO [facility] 15:30:00 Finn [id number] [facility] 2021-11-09 2021-11-09 Emergency X [facility] [id number] Univers 15:15:00 18:32:00 ity [facility] 2021-11-09 2021-11-09 Emergency [facility] [id number] Univers 15:15:00 18:32:00 Mckenzie PEREZ [id number] [facility] [id number] [facility] [id number] [place] [address] Branch 2021-11-05 2021-11-05 Emergency X [facility] ERT [id number] Univers 00:44:00 06:53:00 MIHAELA baugh [facility] 2021-11-05 2021-11-05 Emergency [facility] [id number] Univers 00:44:00 06:53:00 Mihaela PEREZ [id number] [facility] [id number] [facility] [id number] [place] [address] Branch 2021-11-04 2021-11-04 Transition RIVAS Feliciano 1.2.840.114 [id number] Univers 00:00:00 00:00:00 of Jennifer DUQUE 350.1.13.10 it vashti sanz MARIE 4.2.7.2.686 Noe beckett [id number] [facility] [address] 2021-11-02 2021-11-03 Outpatient X [facility] DARIUS [id number] Univers 22:35:00 15:46:[address] [facility] 2021-10-27 2021-10-29 Outpatient X DERRICK [facility] D[facility]US [id number] Univers 17:41:00 14:03:[address] [facility] 2021-07-21 2021-07-21 Outpatient Wong_H VFP VFP [id number] [facility] 06:58:00 06:58:00 [id number] Family Practic e 2020-10-30 2020-11-05 Inpatient EM ANNEL CarreraPM [facility] [id number] - [facility] 16:50:00 13:52:00 Fede [address]270 [facility] 2020-10-31 2020-10-31 Outpatient AMELIA Carrera LABO V3042 [facility] 08:22:00 08:22:00 Fede 07822 Psychiatric 2020-10-28 2020-10-28 Hospital Radiology [facility] 1.2.840.114 [id number] 08:30:17 23:59:00 Encounter Sera 350.1.13.10 [place] 4.2.7.2.686 [place] [id number] 2020-10-12 2020-10-12 Outpatient R [facility] [id number] Univers 14:00:00 14:50:[address] [facility] 2020-10-06 2020-10-[address] [facility] 1.2.840.114 [id number] 909 10:43:51 11:59:29 Visit Gina Perez 350.1.13.10 [place] 4.2.7.2.686 Professio [id number] [address] 2020-08-19 2020-08-19 Outpatient MAURILIO, PEGGY OPLA [id number] -20 [facility] 07:13:00 07:13:00 DOES_NOT 133344 [facility] 2020-08-10 2020-08-14 Inpatient AMELIA Carey INTE.02 [id number]- 202 [facility] 09:09:00 18:56:00 [place] [id number] Psychiatric 2017-10-23 2017-10-27 Discharged 1 BROOKE, [facility] [id number] 17:29:00 16:54:00 Inpatient ALEXIS 90 [facility] s [facility] 2017-04-03 2017-04-04 Departed ER TAVON, [facility] [id number] [address] 23:17:00 03:53:00 Emergency LAIRD 56 Luke s Room [facility] 2017-03-05 2017-03-09 Discharged ER PHILIP, [facility] [id number] 06:54:00 10:58:00 Inpatient NICHELLE 44 Luke s (obs) Patient [facility] 2017-01-04 2017-01-05 Discharged [facility] [id number] 10:33:00 18:56:00 Inpatient 61 Luke s (obs) [facility] Results Test Description Test Time Test Comments Results Result Comments Source TROPONIN I 2021-11-09 20:57:59 Test Item Value Reference Range Interpretation Comme nts TROPONIN I (test code = 0.017 ng/mL See_Comment [Au tomated message] The [id number]) system which ge nerated this result tra [...] biotin. Lab Interpretation Normal (test code = 29090-4) [facility] [id number] 20:54:59 Test Item Value Reference Range Interpretation Comments NT-proBNP (test code 6490 pg/mL See_Comment H [Autom ated = 0881524473) message] The system which generated this result transmitted reference range : <=125. The reference range was not used to interpret this result as normal/abnormal . DIANE (test code = DIANE) Biotin has been reported to cause a negative bias, interpret results relative to patient's use of biotin. Lab Interpretation Abnormal (test code = 43886-8) [facility]2022-06-21 20:46:35 Test Item Value Reference Range Interpretation Comments MAGNESIUM (test code = 4211838109) 1.5 mg/dL 1.7-2.4 L Lab Interpretation (test code = Abnormal 16291-8) [facility] MET[facility]OLIC PANEL (75854)2021-11-09 20:46:34 Test Item Value Reference Range Interpretation Comments NA (test code = 140 mmol/L 135-145 7203044553) K (test code = 3.9 mmol/L 3.5-5.0 0762315594) CL (test code = 111 mmol/L 98-108 H 4766287703) CO2 TOTAL (test code = 16 mmol/L 23-31 L 4473201084) AGAP (test code = 2-16 3150321681) BUN (test code = 14 mg/dL 7-23 5794891221) GLUCOSE (test code = 189 mg/dL 70-110 H 4724591907) CREATININE (test code = 0.66 mg/dL 0.60-1.25 3258871994) TOTAL BILI (test code = 0.8 mg/dL 0.1-1.0 2323790588) CALCIUM (test code = 8.3 mg/dL 8.6-10.6 L 0757506574) T PROTEIN (test code = 6.5 g/dL 6.3-8.2 0539860133) ALBUMIN (test code = 3.3 g/dL 3.5-5.0 L 6081525043) ALK PHOS (test code = 136 U/L 34-122 H 9418095477) ALTv (test code = 18 U/L 5-50 1742-6) AST(SGOT) (test code = 26 U/L 13-40 8158768600) eGFR (test code = mL/min/1.73m2 1351884268) DIANE (test code = DIANE) Association of [...] tests). Lab Interpretation Abnormal (test code = 15427-8) [facility] WITH [id number] 20:33:30 Test Item Value Reference Range Interpretation Comments WBC (test code = See_Comment [Automated 6997-2) message] The sy stem which generated this [...] RDW-SD (test code = 45.4 fL 38.5-51.6 56678-3) RDW-CV (test code = 14.2 % 12.1-15.4 788-0) PLT (test code = See_Comment [Automated 777-3) message] The sy stem which generated this result transmitted reference range : 150 - 328 10*3/ ?L. The reference r batsheva was not used to interpret this result as normal/abnormal . MPV (test code = 9.8 fL 9.8-13.0 39098-6) NRBC/100 WBC (test See_Comment [Automat ed code = 0805167113) message] The system which generated this result transmitted reference range : 0.0 - 10.0 /100 WBCs. The refer ence range was not u sed to interpret th is result as normal/abnormal . NRBC x10^3 (test code <0.01 See_Comment [Auto mated = 2560334717) message] The s ystem which generated this result transmitted reference range : 10*3/?L. The reference range was not used to interpret this result as normal/abnormal . GRAN MAT (NEUT) % 62.3 % (test code = 770-8) IMM GRAN % (test code 0.80 % = 1375349804) LYMPH % (test code = 25.1 % 736-9) MONO % (test code = 6.7 % 5905-5) EOS % (test code = 4.7 % 713-8) BASO % (test code = 0.4 % 706-2) GRAN MAT x10^3(ANC) 4.76 10*3/uL 1.99-6.95 (test code = 9948251872) IMM GRAN x10^3 (test 0.06 10*3/uL 0.00-0.06 code = 6945309100) LYMPH x10^3 (test code 1.92 10*3/uL 1.09-3.23 = 731-0) MONO x10^3 (test code 0.51 10*3/uL 0.36-1.02 = 742-7) EOS x10^3 (test code = 0.36 10*3/uL 0.06-0.53 711-2) BASO x10^3 (test code 0.03 10*3/uL 0.01-0.09 = 704-7) Lab Interpretation Abnormal (test code = 32155-9) [facility]AUTOMATED)2021-11-09 20:27:39 Test Item Value Reference Range Interpretation Comments POCT GLU (test code = 3021556358) 190 mg/dL 70-110 H Lab Interpretation (test code = Abnormal 93206-5) [facility] [id number] 11:52:00 Test Item Value Reference Range Interpretation Comments GLUCOSE BEDSIDE TESTING (test code = 92 mg/dL 70-110 N GLUBED) GLUCOSE BEDSIDE [id number] 08:05:00 Test Item Value Reference Range Interpretation Comments GLUCOSE BEDSIDE TESTING (test code = 62 mg/dL 70-110 L GLUBED) GLUCOSE BEDSIDE [id number] 20:40:00 Test Item Value Reference Range Interpretation Comments GLUCOSE BEDSIDE TESTING (test code 105 mg/dL 70-110 N = GLUBED) GLUCOSE BEDSIDE [id number] 17:02:00 Test Item Value Reference Range Interpretation Comments GLUCOSE BEDSIDE TESTING (test code 128 mg/dL 70-110 H = GLUBED) GLUCOSE BEDSIDE [id number] 16:37:00 Test Item Value Reference Range Interpretation Comments GLUCOSE BEDSIDE TESTING (test code 105 mg/dL 70-110 N = GLUBED) GLUCOSE BEDSIDE [id number] 08:17:00 Test Item Value Reference Range Interpretation Comments GLUCOSE BEDSIDE TESTING (test code = 88 mg/dL 70-110 N GLUBED) GLUCOSE BEDSIDE [id number] 19:45:00 Test Item Value Reference Range Interpretation Comments GLUCOSE BEDSIDE TESTING (test code 115 mg/dL 70-110 H = GLUBED) GLUCOSE BEDSIDE [id number] 18:13:00 Test Item Value Reference Range Interpretation Comments GLUCOSE BEDSIDE TESTING (test code = 74 mg/dL 70-110 N GLUBED) GLUCOSE BEDSIDE [id number] 17:29:00 Test Item Value Reference Range Interpretation Comments GLUCOSE BEDSIDE TESTING (test code = 44 mg/dL 70-110 LL GLUBED) GLUCOSE BEDSIDE [id number] 12:26:00 Test Item Value Reference Range Interpretation Comments GLUCOSE BEDSIDE TESTING (test code = 96 mg/dL 70-110 N GLUBED) GLUCOSE BEDSIDE [id number] 08:21:00 Test Item Value Reference Range Interpretation Comments GLUCOSE BEDSIDE TESTING (test code = 77 mg/dL 70-110 N GLUBED) GLUCOSE BEDSIDE [id number] 20:12:00 Test Item Value Reference Range Interpretation Comments GLUCOSE BEDSIDE TESTING (test code = 91 mg/dL 70-110 N GLUBED) GLUCOSE BEDSIDE [id number] 16:42:00 Test Item Value Reference Range Interpretation Comments GLUCOSE BEDSIDE TESTING (test code 106 mg/dL 70-110 N = GLUBED) GLUCOSE BEDSIDE [id number] 11:49:00 Test Item Value Reference Range Interpretation Comments GLUCOSE BEDSIDE TESTING (test code = 89 mg/dL 70-110 N GLUBED) GLUCOSE BEDSIDE [id number] 08:22:00 Test Item Value Reference Range Interpretation Comments GLUCOSE BEDSIDE TESTING (test code = 68 mg/dL 70-110 L GLUBED) GLUCOSE BEDSIDE [id number] 20:05:00 Test Item Value Reference Range Interpretation Comments GLUCOSE BEDSIDE TESTING (test code 137 mg/dL 70-110 H = GLUBED) GLUCOSE BEDSIDE [id number] 16:42:00 Test Item Value Reference Range Interpretation Comments GLUCOSE BEDSIDE TESTING (test code = 98 mg/dL 70-110 N GLUBED) GLUCOSE BEDSIDE [id number] 11:13:00 Test Item Value Reference Range Interpretation Comments GLUCOSE BEDSIDE TESTING (test code 118 mg/dL 70-110 H = GLUBED) GLUCOSE BEDSIDE [id number] 07:37:00 Test Item Value Reference Range Interpretation Comments GLUCOSE BEDSIDE TESTING (test code 140 mg/dL 70-110 H = GLUBED) COMPREHENSIVE METABOLIC [id number] 06:34:00 Test Item Value Reference Range Interpretation [...] TOTAL (test code = ALKP) CBC W/AUTO [id number] 06:25:00 Test Item Value Reference Range Interpretation [...] DIFF/SCN CRITERIA = MDIFF) - CT ABDOMEN [id number]/[id number] 03:09:00 [facility] 1960 Sex: M Name: FAITH VANCE [facility] : 1960 Age/S: 60 / M [address] Unit #: [id number] Loc: [place] [address] Phys: Fede Carrera DO Acct: [id number] Dis Date: Status: ADM IN PHONE #: [phone] Exam Date: 10/31/20201919 FAX #: Reason: NAUSEA, VOMITING, DIARRHEA EXAMS: CPT: [id number] CT ABDOMEN W/CONTRAST 69580 EXAM: - CT ABDOMEN W/CONTRAST LOCATION: H61 CLINICAL HISTORY/INDICATION: NAUSEA, VOMITING, DIARRHEA COMPARISON: KUB 10/31/2020. CT 08/23/2020. TECHNIQUE: Axial CT images of the abdomen were obtained from with IV contrast administration. Coronal and sagittal reformations were reconstructed from the axial data set. Postcontrast images were acquired in the portal venous phaseThis examination was performed according to our departmental dose optimization program, which includes automated exposure control, adjustment of the mA and/or kV according to patient size, and/or use of iterative reconstruction technique. FINDINGS: LOWER THORAX: Moderate [...] 1 Signed Report (CONTINUED) Name: FAITH VANCE [facility] LittletonDOB: 1960 Age/S: 60 / M [address] Unit #: [id number] Loc: [place] [address] Phys: Fede Green DO Acct: [id number] Dis Date: Status: ADM IN PHONE #: [phone] Exam Date: 10/31/20201919 FAX #: Reason: NAUSEA, VOMITING, DIARRHEA EXAMS: CPT: [id number] CT ABDOMEN W/CONTRAST 41698 <Continued> small bowel wall thickening. The appendix [...] (308) t.SDR.TH15 Orig Print D/T: S: 11/01/2020 (031) PAGE 2 Signed ReportGLUCOSE BEDSIDE [id number] 21:34:00 Test Item Value Reference Range Interpretation Comments GLUCOSE BEDSIDE TESTING (test code 161 mg/dL 70-110 H = GLUBED) GLUCOSE BEDSIDE [id number] 17:32:00 Test Item Value Reference Range Interpretation Comments GLUCOSE BEDSIDE TESTING (test code 136 mg/dL 70-110 H = GLUBED) - XR ABDOMEN 1 [id number] 12:44:00 [facility] : 1960 Sex: M Name: FAITH VANCE [facility] : 1960 Age/S: 60 / M [address] Unit #: [id number] Loc: [place] [address] Phys: Fede Carrera DO Acct: [id number] Dis Date: Status: ADM IN PHONE #: [phone] Exam Date: 10/31/2020 1227 FAX #: Reason: Abdominal pain in the lower qudarants EXAMS: CPT: [id number] XR ABDOMEN 1 V 50229 Fluoro Time: DAP (Gy m2): Air Kerma [...] Carrera DO PAGE 1 Signed Report Name: FAITH VANCE [facility] : 1960 Age/S: 60 / M [address] Unit #: [id number] Loc: [place] [address] Phys: Fede Carrera DO Acct: [id number] Dis Date: Status: ADM IN PHONE #: [phone] Exam Date: 10/31/2020 1227 FAX #: Reason: Abdominal pain in the lower qudarants EXAMS: CPT: [id number] XR ABDOMEN 1 V 47108 Fluoro Time: DAP (Gy m2): Air Kerma (mGy): <Continued> Technologist: Cecelia Arias RT(R) Trnscb Date/Time: 10/31/2020 (9578) CadyV OrigPrint D/T: S: 10/31/2020 (8727) PAGE 2 Signed Report GLUCOSE BEDSIDE [id number] 11:58:00 Test Item Value Reference Range Interpretation Comments GLUCOSE BEDSIDE TESTING (test code 105 mg/dL 70-110 N = GLUBED) GLUCOSE BEDSIDE [id number] 08:01:00 Test Item Value Reference Range Interpretation Comments GLUCOSE BEDSIDE TESTING (test code 106 mg/dL 70-110 N = GLUBED) [id number] 22:46:00 Test Item Value Reference Range Interpretation [...] yby method. Completed by Nursing: NOGLUCOSE BEDSIDE [id number] 21:55:00 Test Item Value Reference Range Interpretation Comments GLUCOSE BEDSIDE TESTING (test code 119 mg/dL 70-110 H = GLUBED) [id number] 19:33:00 Test Item Value Reference Range Interpretation [...] method. Completed by Nursing: NOCoronavirus 2019 nCoV [id number] 18:46:00 Test Item Value Reference Range Interpretation Comments Coronavirus 2019 nCoV Negative Negative Per ma nufacturer, Bedside (test code = negativ e results should [id number]) be treated aspresumptive a nd, if inconsistent [...] with COVID-19. Spec Comments: NNT PRO-BRAIN NATRIURETIC [id number] 15:51:00 Test Item Value Reference Range Interpretation Comments NT PRO-BRAIN NATRIURETIC PEPTI 6079 PG/ML 0-100 H (test code = PROBNP) Completed by Nursing: [id number] 15:51:00 Test Item Value Reference Range Interpretation [...] yby method. Completed by Nursing: NOBASIC METABOLIC [id number] 15:51:00 Test Item Value Reference Range Interpretation [...] Completed by Nursing: NO- XR CHEST 1 [id number] 15:42:00 [facility] : 1960 Sex: M Name: FAITH VANCE [facility] : 1960 Age/S: 60 / M [address] Unit #: [id number] Loc: [place] [address] Phys: Todd Jacobo MD Acct: [id number] Dis Date: Status: PRE ER PHONE #:[phone] Exam Date: 10/30/2020 1526 FAX #: Reason: chest pain EXAMS: CPT: [id number] XR CHEST 1 V 99571 Fluoro Time: DAP (Gy m2): Air Kerma [...] PAGE 1 Signed Report Name: FAITH VANCE [facility] : 1960 Age/S: 60 / M [address] Unit #: [id number] Loc: [place] [address] Phys: Todd Jacobo MD Acct: [id number] Dis Date: Status: PRE ER PHONE #: [phone] Exam Date: 10/30/2020 1524 FAX #: Reason: chest pain EXAMS: CPT: [id number] XR CHEST 1 V 88609 Fluoro Time: DAP (Gy m2): Air Kerma (mGy): <Continued> Technologist: Kim Andrews RT(R)(CT) Trnscb Date/Time: 10/30/2020 (1542) tMATTR.RB24 Orig Print D/T:S: 10/30/2020 (6168) PAGE 2 Signed ReportCBC W/O [id number] 15:31:00 Test Item Value Reference Range Interpretation [...] 9.70 fL 7.0-9.6 H MPV) BASIC METABOLIC [id number] 21:42:00 Test Item Value Reference Range Interpretation [...] 9.6 mg/dL 8.0-10.5 N CA) HEPATIC FUNCTION [id number] 21:42:00 Test Item Value Reference Range Interpretation [...] 114 IUnit/L 20-125 N code = ALKP) [id number] 21:42:00 Test Item Value Reference Range Interpretation Comments LIPASE (test code = LIP) 70 U/L 13-57 H [id number] 21:42:00 Test Item Value Reference Range Interpretation [...] by method. UA RFLX MICR CULT IF [id number] 21:37:00 Test Item Value Reference Range Interpretation [...] INDWELLING CATH (CEDENO)Cath Status: Under 72 hoursPROTHROMBIN [id number] 21:35:00 Test Item Value Reference Range Interpretation [...] (to prevent recurrent infar ct). THROMBOPLASTIN TIME [id number] 21:35:00 Test Item Value Reference Range Interpretation Comments THROMBOPLASTIN TIME 41.7 Seconds 25.0-39.5 H Therape utic Range: PARTIAL (test code = 50.4 - 88.3 Seconds PTT) Effective 09/04/2018 CBC W/AUTO [id number] 21:29:00 Test Item Value Reference Range Interpretation [...] = MDIFF) - CT ABD PELVIS W/O [id number] 20:49:00 [facility] : 1960 Sex: M Name: FAITH VANCE [facility] [place] : 1960 Age/S: 60 / M [address] [place] [address] Blvd Unit #: [id number] Loc: [place] [address] Phys: Gisel Eugene Supriya JEWEL BEARING DRILLER Acct: [id number] Dis Date: Status: REG ER PHONE #: [phone] Exam Date: 08/23/20202024 FAX #: [phone] Reason: DIFFUSE ABDOMINAL PAIN EXAMS: CPT CODE: [id number] CT ABD PELVIS W/O CONT 32572 Clinical indication: Diffuse abdominal pain. Contrast - [...] is normal. Vascular: The aorta is grossly normalin appearance.. Lymphatics: No enlarged lymph nodes by CT size criteria. Bones/Soft Tissues: Posterior instrumented interbody fusion at L4-L5 levels with laminectomy defects. No obvious fracture or loosening. Small bilateral fat- containing hernias. No ventral hernias. PAGE 1 Signed Report (CONTINUED)Name: FAITH VANCE [facility] Jonn Meija : 1960 Age/S: 60 / M [address] [place] [address] Unit #: [id number] Loc: [place] [address] Phys: Gisel Eugene Acct: [id number] Dis Date: Status: REG ER PHONE #: [phone] Exam Date: 08/23/20202024 FAX #: [phone] Reason: DIFFUSE ABDOMINAL PAIN EXAMS: CPT CODE: [id number] CT ABD PELVIS W/O CONT 72162 <Continued> Peritoneum/Other: No extraluminal air. No extraluminal fluid. IMPRESSION: 1. No acute process in the abdomen and pelvis. 2. Hepatic steatosis. 3. Cholecystectomy. Mild prominence of the proximal common bile duct likely due to increased capacitance. 4. 2.3 x 2.2 cm simple right interpolar renal cyst. Tiny nonobstructive left re nal calculus. No hydronephrosis. 5. Normal appendix. 6. Posterior instrumented fusion from L4 through L5 levels. 7. Small left pleural effusion. at 2048 Reported and signed by: Irene Katz M.D. CC: Alf Hope DO; Carol Martin MD; Gisel Eugene Technologist:RT Fanta(R)(CT) CTDI: DLP: Trnscb Date/Time: 08/23/2020 (2048) tMATTR.VB9 Orig Print D/T: S: 08/23/2020 (2051) PAGE 2 Signed ReportBASIC METABOLIC [id number] 07:51:00 Test Item Value Reference Range Interpretation [...] ed MDRD (test code = GFR) formula. ronic kidney disease is defined as eith er kidney damageor GFR <60 mL/min/1.73 m2 for >3 months. [Automated mess age] The system [employer] generated this result transmitted ref erence range: >=60. Th e reference range was not used to int erpret this result as normal/abnormal . 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 [facility] BASIC METABOLIC [id number] 08:00:00 Test Item Value Reference Range Interpretation [...] 9.9 mg/dL 8.0-10.5 N CA) CBC W/AUTO [id number] 07:08:00 Test Item Value Reference Range Interpretation [...] DIFF REQUIRED (test code NO = MDIFF) [id number] 05:21:00 Test Item Value Reference Range Interpretation Comments GLUBED (test code = 150 MG/DL 70-110 H Performe d by certified GLUBED) 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 [facility] [id number] 21:13:00 Test Item Value Reference Range Interpretation Comments GLUBED (test code = 129 MG/DL 70-110 H Performe d by certified GLUBED) 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 [facility] [id number] 16:48:00 Test Item Value Reference Range Interpretation Comments GLUBED (test code = 116 MG/DL 70-110 H Performe d by certified GLUBED) 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 [facility] [id number] 12:18:00 Test Item Value Reference Range Interpretation Comments GLUBED (test code = 136 MG/DL 70-110 H Performe d by certified GLUBED) 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 [facility] [id number] 12:18:00 Test Item Value Reference Range Interpretation Comments GLUBED (test code = 151 MG/DL 70-110 H Performe d by certified GLUBED) 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 [facility] CBC W/AUTO [id number] 07:32:00 Test Item Value Reference Range Interpretation [...] (test code NO = MDIFF) BASIC METABOLIC [id number] 07:29:00 Test Item Value Reference Range Interpretation [...] code = 9.0 mg/dL 8.0-10.5 N CA) [id number] 05:19:00 Test Item Value Reference Range Interpretation Comments GLUBED (test code = 135 MG/DL 70-110 H Performe d by certified GLUBED) 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 [facility] [id number] 20:31:00 Test Item Value Reference Range Interpretation Comments GLUBED (test code = 189 MG/DL 70-110 H Performe d by certified GLUBED) 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 [facility] [id number] 17:41:00 Test Item Value Reference Range Interpretation Comments GLUBED (test code = 140 MG/DL 70-110 H Performe d by certified GLUBED) 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 [facility] - CTA CHEST FOR [id number] 13:48:00 [facility] : 1960 Sex: M Name: FAITH VANCE [facility] : 1960 Age/S: 60 / M [address] [place] [address] Unit #: [id number] Loc: [place] [address] Phys: Gina Gonzalez YAYA Acct: [id number] Dis Date: Status: ADM IN PHONE #: [phone] Exam Date: 08/12/2020 09 FAX #: [phone] Reason: CP, elevated D-dimer EXAMS: CPT CODE: [id number] [place] [address] PROCEDURE: CTA CHEST INDICATION: CP, elevated D-dimer; [...] 1 Signed Report (CONTINUED) Name: FAITH VANCE [facility] : 1960 Age/S: 60 / M [address] [place] [address] Unit #: [id number] Loc: [place] [address] Phys: Gina Gonzalez NP Acct: [id number] Dis Date: Status: ADM IN PHONE #: [phone] Exam Date: 08/12/2020911 FAX #: [phone] Reason: CP, elevated D-dimer EXAMS: CPT CODE: [id number] [place] [address] <Continued> contrast enhancement. No acute abnormality demonstrated. MUSCULOSKELETAL: Healed median sternotomy. No acute skeletal abnormality. IMPRESSION: 1. Negative for pulmonary embolic disease within limitations noted. 2.Atherosclerosis. 3. Coronary arterial calcifications with prior coronary arterial stents and CABG. 4. Interstitial edema. No consolidation. 5. Small bilateral pleural effusions. SL: [id number] at 1348 Reported and signed by: Christiano Piña M.D. 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 [facility] CBC W/AUTO [id number] 09:17:00 Test Item Value Reference Range Interpretation [...] (test code NO = MDIFF) BASIC METABOLIC [id number] 08:28:00 Test Item Value Reference Range Interpretation [...] code = 8.3 mg/dL 8.0-10.5 N CA) [id number] 08:28:00 Test Item Value Reference Range Interpretation Comments PHOSPHOROUS (test code = PHOS) 3.6 MG/DL 2.5-4.9 N [id number] 08:28:00 Test Item Value Reference Range Interpretation Comments MAGNESIUM (test code = MAG) 1.94 mg/dL 1.80-2.40 N [id number] 07:16:00 Test Item Value Reference Range Interpretation Comments GLUBED (test code = 170 MG/DL 70-110 H Performe d by certified GLUBED) 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 [facility] [id number] 07:16:00 Test Item Value Reference Range Interpretation Comments GLUBED (test code = 137 MG/DL 70-110 H Performe d by certified GLUBED) 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 [facility] [id number] 17:01:00 Test Item Value Reference Range Interpretation Comments GLUBED (test code = 88 MG/DL 70-110 N Performe d by certified GLUBED) 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 [facility] [id number]-[id number] 16:56:00 Test Item Value Reference Range Interpretation Comments ACT-ISTAT (test code 186 SEC 74-137 H Perform ed by certified = ACTI) 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 [facility] [id number] 15:03:00 Test Item Value Reference Range Interpretation Comments ACT-ISTAT (test code 235 SEC 74-137 H Perform ed by certified = ACTI) 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 [facility] [id number] 11:33:00 Test Item Value Reference Range Interpretation Comments GLUBED (test code = 97 MG/DL 70-110 N Performe d by certified GLUBED) 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 [facility] [id number] 06:54:00 Test Item Value Reference Range Interpretation Comments GLUBED (test code = 136 MG/DL 70-110 H Performe d by certified GLUBED) 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 [facility] BASIC METABOLIC [id number] 06:00:00 Test Item Value Reference Range Interpretation [...] COMMENTS: To be done morning of Heart [id number] 06:00:00 Test Item Value Reference Range Interpretation Comments PHOSPHOROUS (test code = PHOS) 4.1 MG/DL 2.5-4.9 N COMMENTS: To be done morning of Heart TznhASVQYKQUW3528-05-77 06:00:00 Test Item Value Reference Range Interpretation Comments MAGNESIUM (test code = MAG) 1.74 mg/dL 1.80-2.40 L COMMENTS: To be done morning of Heart CathTHROMBOPLASTIN TIME [id number] 05:55:00 Test Item Value Reference Range Interpretation Comments THROMBOPLASTIN TIME 37.9 Seconds 25.0-39.5 N Therape utic Range: PARTIAL (test code = 50.4 - 88.3 Seconds PTT) Effective 09/04/2018 CBC W/AUTO [id number] 05:44:00 Test Item Value Reference Range Interpretation [...] COMMENTS: To be done morning of Heart [id number] 05:44:00 Test Item Value Reference Range Interpretation Comments GLUBED (test code = 92 MG/DL 70-110 N Performe d by certified GLUBED) 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 [facility] HGBA1C%2020-08-10 17:22:00 Test Item Value Reference Range Interpretation Comments HGBA1C% (test code = HGBA1C%) 6.6 %A1C 4.8-6.0 H [id number] 17:17:00 Test Item Value Reference Range Interpretation Comments GLUBED (test code = 118 MG/DL 70-110 H Performe d by certified GLUBED) 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 [facility] TSH REFLEX TO [id number] 15:37:00 Test Item Value Reference Range Interpretation Comments TSH REFLEX TO FT4 (test code = 3.19 IU/mL 0.42-5.47 N TSHREFLEX) [id number] 15:37:00 Test Item Value Reference Range Interpretation [...] y by method. COVID 19 Asymptomatic IH [id number] 11:35:00 Test Item Value Reference Range Interpretation [...] y tests. COMMENTS: If not done this [id number] 11:31:00 Test Item Value Reference Range Interpretation [...] titative results may babak y by method. [id number] 11:28:00 Test Item Value Reference Range Interpretation Comments D-DIMER (test 1089 ng/mlFEU See_Comment HH Critical resu lt called to code = ALYX Rima WELLS DDIMER) G.LAB.JJ1 at 04 1808/10/20Nurse r ead [...] to interpret this result as normal/abnormal . 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 [facility] B-TYPE NATRIURETIC [id number] 08:19:00 Test Item Value Reference Range Interpretation Comments B-TYPE NATRIURETIC PEPTIDE (test 508.0 PG/ML 0-100 H code = BNP) BASIC METABOLIC [id number] 08:11:00 Test Item Value Reference Range Interpretation [...] 9.1 mg/dL 8.0-10.5 N CA) HEPATIC FUNCTION [id number] 08:11:00 Test Item Value Reference Range Interpretation [...] 174 IUnit/L 20-125 H code = ALKP) [id number] 08:11:00 Test Item Value Reference Range Interpretation Comments MAGNESIUM (test code = MAG) 1.80 mg/dL 1.80-2.40 N [id number] 08:11:00 Test Item Value Reference Range Interpretation [...] may babak y by method. BASIC METABOLIC [id number] 08:09:00 Test Item Value Reference Range Interpretation [...] code = CA) mg/dL 8.0-10.5 HEPATIC FUNCTION [id number] 08:09:00 Test Item Value Reference Range Interpretation Comments TOTAL PROTEIN (test code = PROT) g/dL 6.4-8.2 ALBUMIN (test code = ALB) g/dL 3.4-5.0 BILIRUBIN TOTAL (test code = BILT) mg/dL 0.0-1.0 BILIRUBIN DIRECT (test code = BILD) MG/DL 0.0-0.30 SGOT/AST (test code = AST) IUnit/L 15-37 SGPT/ALT (test code = ALT) IUnit/L 30-65 ALKALINE PHOSPHATASE TOTAL (test IUnit/L 20-125 code = ALKP) [id number] 08:09:00 Test Item Value Reference Range Interpretation Comments MAGNESIUM (test code = MAG) mg/dL 1.80-2.40 [id number] 08:09:00 Test Item Value Reference Range Interpretation [...] results may babak y by method. PROTHROMBIN [id number] 08:06:00 Test Item Value Reference Range Interpretation Comments PROTHROMBIN TIME 20.1 SECONDS 9.3-12.9 H PATIENT (test code = PTP) INTERNATIONAL NORMAL 1.8 0.8-1.2 H TARGET INR BY RATIO (test code = INDICATIO N Indication INR) INR1. Prophylax is of venous thrombos is 2.0 - 3.0 (orthope dic surgery), Proph ylaxis of venous throm bosis [...] (to prevent recurrent infar ct). THROMBOPLASTIN TIME [id number] 08:06:00 Test Item Value Reference Range Interpretation Comments THROMBOPLASTIN TIME 44.5 Seconds 25.0-39.5 H Therape utic Range: PARTIAL (test code = 50.4 - 88.3 Seconds PTT) Effective 09/04/2018 CBC W/AUTO [id number] 07:58:00 Test Item Value Reference Range Interpretation [...] MANUAL DIFF REQUIRED (test code NO = IFF) - XR CHEST 1 [id number] 07:57:00 [facility] 1960 Sex: M FAX: Todd Jacobo MD [phone] [place]: St: REG FAX: Martínez Dash NP [phone] Name: FAITH VANCE [facility] : 1960 Age/S: 60/M [address] [place] [address] Unit #: [id number] Loc: [place] [address] Phys: Martínez Dash [employer]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 FAX #: [phone] Reason: Chest Pain EXAMS: CPT CODE: [id number] XR CHEST 1 V 27073 Chest single view 08/10/2020 HISTORY: Chest pain. Comparison is made to 05/21/2018 FINDINGS: Pacemaker and midline sternotomy wires are stable. The lungs are hypoinflated. No consolidation or pleural effusion is present. No vascular congestion or interstitial edema is present. Heart size is mildly enlarged. Aorta is unchanged. IMPRESSION: Hypoinflated lungs. No acute cardiopulmonary process. SL: [id number] at 0757 Reported and signed by: Khai Kruse M.D. CC: Todd Jacobo MD; Martínez Dash NP Technologist: RT Ann(R) Trnscrd Date/Time/By: 08/10/2020 (0757) : By: [email or web address] Orig Print D/T: S: 08/10/2020 (08) PAGE 1 Signed Report COMPREHENSIVE METABOLIC [id number] 18:02:00 Test Item Value Reference Range Interpretation [...] 50-136 H TOTAL (test code = ALKP) [id number] 18:02:00 Test Item Value Reference Range Interpretation Comments AMYLASE (test code = SERGIO) 82 Unit/L 25-115 N [id number] 18:02:00 Test Item Value Reference Range Interpretation Comments LIPASE (test code = LIP) 185 Unit/L 114-286 N COMPREHENSIVE METABOLIC [id number] 17:56:00 Test Item Value Reference Range Interpretation [...] TOTAL Unit/L 50-136 (test code = ALKP) [id number] 17:56:00 Test Item Value Reference Range Interpretation Comments AMYLASE (test code = SERGIO) Unit/L 25-115 [id number] 17:56:00 Test Item Value Reference Range Interpretation Comments LIPASE (test code = LIP) 185 Unit/L 114-286 N CBC W/AUTO [id number] 17:46:00 Test Item Value Reference Range Interpretation [...] CRITERIA MDIFF) - CT ABD PELVIS W/O [id number] 17:46:00 Name: FAITH VANCE [facility]: 1960 Age/S: 58 / M [address] Unit #: [id number] Loc: [place] [address] Phys: Nila Chester MD Acct: [id number] Dis Date: Status: REGER PHONE #: [phone] Exam Date: 01/03/2019 1730 FAX #: Reason: llq EXAMS: CPT: [id number] CT ABDPELVIS W/O CONT 93525 Location of dictation: B2 CT abdomen and [...] Hepatobiliary: Fatty liver without mass. Gallbladder removed. Spleenand pancreas appear normal Adrenals: Normal Kidneys: No [...] 1 Signed Report (CONTINUED) Name: FAITH VANCE [facility] : 1960 Age/S: 58 / M [address] Unit #: [id number] Loc: [place] [address] Phys: Nila Chester Acct: [id number] Dis Date: Status: REG ER PHONE #: [phone] Exam Date: 01/03/2019 1730 FAX#: Reason: llq EXAMS: CPT: [id number] CT ABD PELVIS W/O CONT 23925 <Continued> at 1746 Reported and signed by: Renuka Willett M.D. CC: Nila Chester MD Technologist:Tavon Jurado, RT(R)(CT)(MRI) CTDI: DLP: Trnscb Date/Time: 01/03/2019 (1746) [email or web address] Orig Print D/T: S: 01/03/2019 (9367) PAGE 2 Signed ReportBedside [id number] 11:47:00 Test Item Value Reference Range Interpretation Comments Bedside Glucose (test code = 36125-4) 155 70-120 H Meter ID: [id number] [facility] Hospitalodium [id number] 08:31:00 Test Item Value Reference Range Interpretation Comments Sodium Level (test code = 2951-2) 139 136-145 [facility]Potassium [id number] 08:31:00 Test Item Value Reference Range Interpretation Comments Potassium Level (test code = 2823-3) 4.0 3.5-5.1 [facility]anoChloride [id number] 08:31:00 Test Item Value Reference Range Interpretation Comments Chloride Level (test code = 2075-0) 106 98-107 [facility]anoCarbon Dioxide [id number] 08:31:00 Test Item Value Reference Range Interpretation Comments Carbon Dioxide Level (test code = 25 -8-9) [facility] PlanoAnion [id number] 08:31:00 Test Item Value Reference Range Interpretation Comments Anion Gap (test code = 50640-8) 12.0 8-16 [facility] PlanoBlood Urea [id number] 08:31:00 Test Item Value Reference Range Interpretation Comments Blood Urea Nitrogen (test code = 7 12-14 3094-0) [facility] PlanoCreatinine2018-06-08 08:31:00 Test Item Value Reference Range Interpretation Comments Creatinine (test code = 2160-0) 0.72 0.72-1.25 [facility]anoBUN/Creatinine [id number] 08:31:00 Test Item Value Reference Range Interpretation Comments BUN/Creatinine Ratio (test code = 10 6-25 3097-3) [facility] PlanoEstimat Glomerular Filtration [id number] 08:31:00 Test Item Value Reference Range Interpretation Comments Estimat Glomerular Filtration Rate 60- >60 (test code = 90004-6) Ranges were taken from the National Kidney Disease Education Program and the National Kidney Foundation literature.Reference ranges:60 or greater: Shdycm54- 59 (for 3 consecutive months): Chronic kidneydisease 15 or less: Kidney failure [facility] PlanoGlucose [id number] 08:31:00 Test Item Value Reference Range Interpretation Comments Glucose Level (test code = MHQ3941) 195 74-118 H [facility] PlanoCalcium [id number] 08:31:00 Test Item Value Reference Range Interpretation Comments Calcium Level (test code = 01756-8) 9.0 8.4-10.2 [facility] PlanoWhite Blood Huggg5701-36-15 08:12:00 Test Item Value Reference Range Interpretation Comments White Blood Count (test code = 6690-2) 6.06 4.8-10.8 [facility] PlanoRed Blood Hnikl5563-64-04 08:12:00 Test Item Value Reference Range Interpretation Comments Red Blood Count (test code = 789-8) 4.22 4.3-5.7 L [facility] PlanoHemoglobin2018-06-08 08:12:00 Test Item Value Reference Range Interpretation Comments Hemoglobin (test code = 54795-6) 12.5 14.0-18.0 L [facility]anoHematocrit2018-06-08 08:12:00 Test Item Value Reference Range Interpretation Comments Hematocrit (test code = 4544-3) 36.2 38.2-49.6 L [facility] PlanoMean Corpuscular [id number] 08:12:00 Test Item Value Reference Range Interpretation Comments Mean Corpuscular Volume (test code = 85.8 81-99 787-2) [facility] PlanoMean Corpuscular Zdzrupokla0380-30-30 08:12:00 Test Item Value Reference Range Interpretation Comments Mean Corpuscular Hemoglobin (test code 29.6 28-32 = 785-6) [facility] PlanoMean Corpuscular Hemoglobin Lgvdzof5840-06-06 08:12:00 Test Item Value Reference Range Interpretation Comments Mean Corpuscular Hemoglobin Concent 34.5 31-35 (test code = 786-4) [facility] PlanoRed Cell Distribution [id number] 08:12:00 Test Item Value Reference Range Interpretation Comments Red Cell Distribution Width (test code 14.2 11.7-14.4 = 22085-5) [facility] PlanoPlatelet Apggq8648-00-17 08:12:00 Test Item Value Reference Range Interpretation Comments Platelet Count (test code = 777-3) 263 140-360 [facility] PlanoNeutrophils (%) (Auto)2017-10-27 08:12:00 Test Item Value Reference Range Interpretation Comments Neutrophils (%) (Auto) (test code = 51.2 38.7-80.0 84910-8) [facility] PlanoLymphocytes (%) (Auto)2017-10-27 08:12:00 Test Item Value Reference Range Interpretation Comments Lymphocytes (%) (Auto) (test code = 33.7 18.0-39.1 736-9) [facility]anoMonocytes (%) (Auto)2017-10-27 08:12:00 Test Item Value Reference Range Interpretation Comments Monocytes (%) (Auto) (test code = 9.1 4.4-11.3 5905-5) [facility]anoEosinophils (%) (Auto)2017-10-27 08:12:00 Test Item Value Reference Range Interpretation Comments Eosinophils (%) (Auto) (test code = 4.8 0.0-6.0 713-8) [facility]anoBasophils (%) (Auto)2017-10-27 08:12:00 Test Item Value Reference Range Interpretation Comments Basophils (%) (Auto) (test code = 0.7 0.0-1.0 706-2) [facility] PlanoIM GRANULOCYTES %2017-10-27 08:12:00 Test Item Value Reference Range Interpretation Comments IM GRANULOCYTES % (test code = IM 0.5 0.0-1.0 GRANULOCYTES %) [facility] PlanoNeutrophils # (Auto)2017-10-27 08:12:00 Test Item Value Reference Range Interpretation Comments Neutrophils # (Auto) (test code = 3.1 2.1-6.9 751-8) [facility] PlanoLymphocytes # (Auto)2017-10-27 08:12:00 Test Item Value Reference Range Interpretation Comments Lymphocytes # (Auto) (test code = 2.0 1.0-3.2 83876-5) [facility] PlanoMonocytes # (Auto)2017-10-27 08:12:00 Test Item Value Reference Range Interpretation Comments Monocytes # (Auto) (test code = 742-7) 0.6 0.2-0.8 [facility]anoEosinophils # (Auto)2017-10-27 08:12:00 Test Item Value Reference Range Interpretation Comments Eosinophils # (Auto) (test code = 0.3 0.0-0.4 711-2) [facility]anoBasophils # (Auto)2017-10-27 08:12:00 Test Item Value Reference Range Interpretation Comments Basophils # (Auto) (test code = 704-7) 0.0 0.0-0.1 [facility] PlanoAbsolute Immature Granulocyte ([id number] 08:12:00 Test Item Value Reference Range Interpretation Comments Absolute Immature Granulocyte (auto 0.03 0-0.1 (test code = Absolute Immature Granulocyte (auto) [facility] PlanoCreatine Kinase [id number] 15:14:00 Test Item Value Reference Range Interpretation Comments Creatine Kinase MB (test code = 3.90 0-5.0 41864-9) [facility] PlanoTroponin [id number] 15:14:00 Test Item Value Reference Range Interpretation Comments Troponin I (test code = BAE5814) 0.054 0-0.300 [facility] PlanoCreatine [id number] 15:07:00 Test Item Value Reference Range Interpretation Comments Creatine Kinase (test code = 2157-6) 297 30-200 H [facility] PlanoHemoglobin A1c Geuqhxq8182-06-02 08:04:00 Test Item Value Reference Range Interpretation Comments Hemoglobin A1c Percent (test code = 12.6 4.0-7.0 H Hemoglobin A1c Percent) [facility] PlanoTriglycerides Gdebd6484-61-69 06:57:00 Test Item Value Reference Range Interpretation Comments Triglycerides Level (test code = 200 0-149 H 2571-8) [facility] PlanoCholesterol [id number] 06:57:00 Test Item Value Reference Range Interpretation Comments Cholesterol Level (test code = 2093-3) 239 0-199 H Less than 200 mg/dL Low Zojg430 - 239 mg/dL Borderline Zomb228 mg/dl and greater High RiskB[facility] – PlanoLDL Rzrmogzsxca2436-62-31 06:57:00 Test Item Value Reference Range Interpretation Comments LDL Cholesterol (test code = 2089-1) 164 60-130 H [facility] PlanoHDL Ymasjzjsgjq2584-15-38 06:57:00 Test Item Value Reference Range Interpretation Comments HDL Cholesterol (test code = 2085-9) 35 40-60 L [facility] PlanoCholesterol/HDL Qoxak8306-00-27 06:57:00 Test Item Value Reference Range Interpretation Comments Cholesterol/HDL Ratio (test code = 6.8 3.9-4.7 H 9830-1) [facility] PlanoUrine Opiates [id number] 16:18:00 Test Item Value Reference Range Interpretation Comments Urine Opiates Screen (test code = NEGATIVE NEGATIVE 25603-3) [facility] PlanoUrine Barbiturates Xieqke8800-84-75 16:18:00 Test Item Value Reference Range Interpretation Comments Urine Barbiturates Screen (test code NEGATIVE NEGATIVE = 405828320) [facility] PlanoUrine Phencyclidine [id number] 16:18:00 Test Item Value Reference Range Interpretation Comments Urine Phencyclidine Screen (test NEGATIVE NEGATIVE code = 67138-3) [facility] PlanoUrine Amphetamines Jkvxvx9338-62-48 16:18:00 Test Item Value Reference Range Interpretation Comments Urine Amphetamines Screen (test code NEGATIVE NEGATIVE = 59809-1) [facility] PlanoUrine Methamphetamines Jkncsk6825-91-59 16:18:00 Test Item Value Reference Range Interpretation Comments Urine Methamphetamines Screen (test NEGATIVE NEGATIVE code = Urine Methamphetamines Screen) [facility] PlanoUrine Benzodiazepines Idtihd2588-19-75 16:18:00 Test Item Value Reference Range Interpretation Comments Urine Benzodiazepines Screen (test NEGATIVE NEGATIVE code = 57393-9) [facility] PlanoUrine Cocaine Uiahwb9975-42-66 16:18:00 Test Item Value Reference Range Interpretation Comments Urine Cocaine Screen (test code = NEGATIVE NEGATIVE 3398-5) [facility] PlanoUrine Cannabinoids Vbkuom8069-29-19 16:18:00 Test Item Value Reference Range Interpretation Comments Urine Cannabinoids Screen (test code NEGATIVE NEGATIVE = 95738-5) THESE RESULTS ARE FOR MEDICAL TREATMENT ONLYTHIS REPORT CONTAINS UNCONFIRMED SCREENING RESULTS*POSITIVE RESULTS WILL BE CONFIRMED BY REFERENCE LAB UPON REQUEST CUT-OFFDRUG CLASS CONCENTRATION ng/mLAmphetamines 1000Methamphetamines 1000Cocaine 300Opiate 300Phencyclidine 25Cannabinoid 50Barbiturates 300Benzodiazepine 300Methadone 300[facility] HospitalUrine Methadone [id number] 16:18:00 Test Item Value Reference Range Interpretation Comments Urine Methadone Screen (test code = NEGATIVE NEGATIVE 01910-1) THESE RESULTS ARE FOR MEDICAL TREATMENT ONLYTHIS REPORT CONTAINS UNCONFIRMED SCREENING RESULTS*POSITIVE RESULTS WILL BE CONFIRMED BY REFERENCE LAB UPON REQUEST CUT-OFFDRUG CLASS CONCENTRATION ng/mLAmphetamines 1000Methamphetamines 1000Cocaine Metabolite 300Opiate 300Phencyclidine 27Njhyhykpojt35Fqwgojiwsdkz 300Benzodiazepine 300Methadone 300[facility] PlanoProthrombin Jzcl3038-19-08 14:13:00 Test Item Value Reference Range Interpretation Comments Prothrombin Time (test code = 5902-2) 13.6 11.9-14.5 [facility] PlanoProthromb Time International Fdszh9933-95-12 14:13:00 Test Item Value Reference Range Interpretation Comments Prothromb Time International Ratio 1.13 (test code = 6301-6) Oral Anticoagulant Therapy INR Values:1. Low Intensity Therapy 1.5 - 2.02. Moderate Intensity Therapy 2.0 - 3.03. High Intensity Therapy(1) 2.5 - 3.54. High Intensity Therapy(2) 3.0 - 4.05. Panic ValueINR > 5.0[facility] PlanoActivated Partial Thromboplast [id number] 14:13:00 Test Item Value Reference Range Interpretation Comments Activated Partial Thromboplast Time 27.6 23.8-35.5 (test code = 31356-3) [facility] PlanoTotal Vonotyedi4532-09-66 14:10:00 Test Item Value Reference Range Interpretation Comments Total Bilirubin (test code = 1975-2) 0.6 0.2-1.2 [facility] PlanoAspartate Amino Transf (AST/SGOT)2017-10-23 14:10:00 Test Item Value Reference Range Interpretation Comments Aspartate Amino Transf (AST/SGOT) (test 36 5-34 H code = Aspartate Amino Transf (AST/SGOT)) [facility] PlanoAlanine Aminotransferase (ALT/SGPT)2017-10-23 14:10:00 Test Item Value Reference Range Interpretation Comments Alanine Aminotransferase (ALT/SGPT) 34 0-55 (test code = 1742-6) [facility] PlanoTotal Prngdrc7826-86-09 14:10:00 Test Item Value Reference Range Interpretation Comments Total Protein (test code = 2885-2) 7.3 6.5-8.1 [facility] PlanoAlbumin2018-06-04 14:10:00 Test Item Value Reference Range Interpretation Comments Albumin (test code = 1751-7) 4.0 3.5-5.0 [facility] PlanoGlobulin2018-06-04 14:10:00 Test Item Value Reference Range Interpretation Comments Globulin (test code = 19398-6) 3.3 2.3-3.5 [facility] PlanoAlbumin/Globulin Ftzlz7109-11-69 14:10:00 Test Item Value Reference Range Interpretation Comments Albumin/Globulin Ratio (test code = 1.2 0.8-2.0 1759-0) [facility] PlanoAlkaline Evxnjzyrtya2266-33-90 14:10:00 Test Item Value Reference Range Interpretation Comments Alkaline Phosphatase (test code = 109 40-150 6768-6) [facility] PlanoB-Type Natriuretic Myovann0344-58-89 14:10:00 Test Item Value Reference Range Interpretation Comments B-Type Natriuretic Peptide (test code = 92.8 0-100 69957-8) [facility] PlanoAmylase Vtzcz9597-92-09 14:10:00 Test Item Value Reference Range Interpretation Comments Amylase Level (test code = 1798-8) 126 25-125 H [facility] PlanoLipase2018-06-04 14:10:00 Test Item Value Reference Range Interpretation Comments Lipase (test code = 3040-3) 98 8-78 H [facility] PlanoD-Dimer Quantitative (PE/DVT)2017-10-23 14:02:00 Test Item Value Reference Range Interpretation Comments D-Dimer Quantitative (PE/DVT) (test 0.49 0.00-0.45 H code = 87570-0) [facility] Ibhibhbae4136-86-32 13:47:00 Test Item Value Reference Range Interpretation Comments Direct Bilirubin (test code = 59810-1) 0.2 0.0-5.0 [facility] Ibjcd5210-99-59 06:52:00 Test Item Value Reference Range Interpretation Comments Magnesium Level (test code = 47366-6) 1.5 1.3-2.1 [facility] [id number] 05:09:00 Test Item Value Reference Range Interpretation Comments Urine WBC (test code = 5821-4) NONE 0-5 [facility] [id number] 05:09:00 Test Item Value Reference Range Interpretation Comments Urine RBC (test code = 38078-3) NONE 0-5 [facility] Ieayxoga1449-27-30 05:09:00 Test Item Value Reference Range Interpretation Comments Urine Bacteria (test code = 25731-1) NONE NONE [facility] Epithelial Ixnxg2293-74-76 05:09:00 Test Item Value Reference Range Interpretation Comments Urine Epithelial Cells (test code = NONE NONE 96151-7) [facility] Leukocyte Cigoceal1488-01-48 04:46:00 Test Item Value Reference Range Interpretation Comments Urine Leukocyte Esterase (test code NEGATIVE NEGATIVE = 5799-2) [facility] Hbomzuy2731-24-02 04:46:00 Test Item Value Reference Range Interpretation Comments Urine Nitrite (test code = 47326-3) NEGATIVE NEGATIVE [facility] Mfxcbll9488-65-99 04:46:00 Test Item Value Reference Range Interpretation Comments Urine Protein (test code = 5804-0) NEGATIVE NEGATIVE [facility] Glucose (UA)2017-03-05 04:46:00 Test Item Value Reference Range Interpretation Comments Urine Glucose (UA) (test code = NEGATIVE NEGATIVE 2349-9) [facility] Ffnncll9903-05-69 04:46:00 Test Item Value Reference Range Interpretation Comments Urine Ketones (test code = 00338-2) NEGATIVE NEGATIVE [facility] Vrkzrbtmapkg1808-89-12 04:46:00 Test Item Value Reference Range Interpretation Comments Urine Urobilinogen (test code = 0.2 0.2-1 80557-4) [facility] Oeokgarml4291-26-74 04:46:00 Test Item Value Reference Range Interpretation Comments Urine Bilirubin (test code = 1978-6) NEGATIVE NEGATIVE [facility] Vvamv9624-47-86 04:46:00 Test Item Value Reference Range Interpretation Comments Urine Blood (test code = 57550-8) 2+ NEGATIVE H [facility] Nbkgk2174-51-17 04:46:00 Test Item Value Reference Range Interpretation Comments Urine Color (test code = 5778-6) YELLOW YELLOW [facility] Tcrvwms7671-14-76 04:46:00 Test Item Value Reference Range Interpretation Comments Urine Clarity (test code = 52870-5) CLEAR CLEAR [facility] Specific Vcfdlgo0290-12-57 04:46:00 Test Item Value Reference Range Interpretation Comments Urine Specific [place] (test code = 1.010 1.010-1.025 5811-5) [facility] [id number] 04:46:00 Test Item Value Reference Range Interpretation Comments Urine pH (test code = 87891-0) 8 5-7 H [facility] B[facility]IN [facility] [address] [place] [address] PatientName: FAITH VANCE MR #: [id number] : 1960 Age/Sex: 57/M Req #: [id number] [facility] Physician: ALEXIS COX MD Ordered by: ALEXIS COX MD Report #: [id number] Location: [facility] Room/Bed: [place] [address] Procedure: [id number] CT/CTA BRAIN Exam Date: 10/24/17 Exam Time: [...] MD 163 Transcribed By: ANDREE on 10/24/17 163 COPY TO: ALEXIS COX MDCT BRAIN WO [place] [address] PatientName: FAITH VANCE MR #: [id number] : 1960 Age/Sex: 57/M Req #: [id number] Adm Physician: Ordered by: KHAI WAHL MD Report #: [id number] Location: ER Room/Bed: __ Procedure: [id number] CT/CT BRAIN WO Exam Date: 10/23/17 Exam [...] COPY TO: KHAI WAHL V MDCTA CHEST [place] [address] PatientName: FAITH VANCE MR #: [id number] : 1960 Age/Sex: 57/M Req #: [id number] Adm Physician: Ordered by: KHAI WAHL MD Report #: [id number] Location: ER Room/Bed: __ Procedure: [id number] CT/CTA CHEST Exam Date: 10/23/17 Exam Time: [...] reviewed and is below limits set by [facility]). FINDINGS: Lines and Tubes: Pacemaker with leads [...] 10/23/17 1621 COPY TO: KHAI WAHL V [facility] SINGLE (PORTABLE) [place] [address] PatientName: FAITH VANCE MR #: [id number] : 1960 Age/Sex: 57/M Req #: [id number] Adm Physician: Ordered by: KHAI WAHL MD Report #: [id number] Location: ER Room/Bed: _ Procedure: [id number] DX/CHEST SINGLE (PORTABLE) Exam Date: 10/23/17 Exam [...] TO: KHAI WAHL V MDCT BRAIN WO [place] [address] PatientName: FAITH VANCE MR #: [id number] : 1960 Age/Sex: 56/M Req #: [id number] Adm Physician: Ordered by: JACQUELYN MONTES DE OCA MD Report #: [id number] Location: ER Room/Bed: Procedure: [id number] CT/CT BRAIN WO Exam Date: Exam Time: [...] MONTES DE OCA MDCT CERVICAL SPINE WO [place] [address] PatientName: FAITH VANCE MR #: [id number] : 1960 Age/Sex: 56/M Req #: [id number] Adm Physician: Ordered by: JACQUELYN MONTES DE OCA MD Report #: [id number] Location: ER Room/Bed: Procedure: [id number] CT/CT CERVICAL SPINE WO Exam Date: Exam [...] 6 COPY TO: [facility]AC[facility]ES [facility] [place] [address] PatientName: FAITH VANCE MR #: [id number] : 1960 Age/Sex: 56/M Req #: [id number] Adm Physician: Ordered by: JACQUELYN MONTES DE OCA MD Report #: [id number] Location: ER Room/Bed: Procedure: [id number] DX/CHEST SINGLE (PORTABLE) Exam Date: 04/04/17 Exam [...] OCA MDHIP RIGHT 2-3 VW (+/- PELVIS) [place] [address] PatientName: FAITH VANCE MR #: [id number] : 1960 Age/Sex: 56/M Req #: [id number] Adm Physician: Ordered by: JACQUELYN MONTES DE OCA MD Report #: [id number] Location: ER Room/Bed: Procedure: [id number] DX/HIP RIGHT 2-3 VW (+/- PELVIS) Exam [...] DE OCA MDSP LUMBAR, COMPLETE MIN 4VW [place] [address] PatientName: FAITH VANCE MR #: [id number] : 1960 Age/Sex: 56/M Req #: [id number] Adm Physician: Ordered by: JACQUELYN MONETS DE OCA MD Report #: [id number] Location: ER Room/Bed: Procedure: [id number] DX/SP LUMBAR, COMPLETE MIN 4VW Exam Date: 04/04/17 Exam Time: 0108 REPORT STATUS: Signed SP LUMBAR, COMPLETE MIN 4VW Comparison: CT 08/10/2016 Clinical history: Status post fall with lowerback pain Findings: Postoperative changes from posterior fusion from left L4 vertebral body to L5-B4noppso and posterior decompression. No evidence of hardware [...] TO: JACQUELYN MONTES DE OCA MDUS ABDOMEN [place] [address] PatientName: FAITH VANCE MR #: [id number] : 1960 Age/Sex: 56/M Req #: [id number] Adm Physician: NICHELLE PALACIOS MD Ordered by: SCOTT AMIN MD Report #: [id number] Location: [facility] Room/Bed: [place] [address] Procedure: [id number] US/US ABDOMEN COMPLETE Exam Date: 03/08/17 Exam [...] SAMPSON MD 1040 Transcribed By: ANIBAL on 03/08/171039 COPY TO: [facility] SINGLE (PORTABLE) [place] [address] PatientName: FAITH VANCE MR #: [id number] : 1960 Age/Sex: 56/M Req #: [id number] Adm Physician: Ordered by: JACQUELYN MONTES DE OCA MD Report #: [id number] Location: ER Room/Bed: Procedure: [id number] DX/CHEST SINGLE (PORTABLE) Exam Date: 03/05/17 Exam [...]
[2022-01-24] MEDS ORDERED: ONDANSETRON 4 MG/2 ML VIAL ONE ×3 (17:07→21:06)
[2022-01-24] MEDS ORDERED: FAMOTIDINE 20 MG/2 ML VIAL IV ONE (17:07)
[2022-01-24] MEDS ORDERED: MORPHINE 4 MG/ML SYR ONE (17:07)
[2022-01-24] MEDS ORDERED: NITROGLYCERIN 1 GM PKT TD ONE (17:07)
[2022-01-24 17:16] LABS: Absolute Lymphocytes (CBC) 1.2 K/uL (0.7-4.9); Hematocrit 35.9 % (39.6-49.0); Lymphocytes % 16.1 % (15.3-44.8); MCV 91.9 fL (80-100); MPV 7.9 fL (7.6-11.3)
[2022-01-24 17:26] LABS: Potassium 4.3 mmol/L (3.5-5.1); Troponin High Sensitivity 18.9 pg/mL (<58.9)
--- NOTE | 2022-01-24 17:47 | RAD REPORT ---
EXAM DESCRIPTION: RAD - Chest Single View - 01/24/2022 5:09 pm CLINICAL HISTORY: CHEST PAIN COMPARISON: Chest Single View dated 01/20/2022; Chest Single View dated 01/17/2022; Chest Single View d ated 01/13/2022; Chest Single View dated 01/08/2022 FINDINGS: Lines: None. Lungs: No evidence of edema or pneumonia. Pleural: No significant pleural effusions or pneumothorax. Cardiac: Cardiomegaly. Sternotomy. Mediastinum: Within normal limits. Bones: No acute fractures. Other: None IMPRESSION: No acute cardiopulmonary disease.
[2022-01-24] MEDS ORDERED: NA CHLORIDE 0.9% 100 ML ONE (17:52)
[2022-01-24] MEDS ORDERED: HYDROMORPHONE HCL 1 MG/ML INJ ONE ×3 (17:52→21:06)
--- NOTE | 2022-01-24 21:23 | ER ---
Nurse's Notes [facility] Name: Ernie Rooney Age: 61 yrs Sex: Male : 1960 Arrival Date: 01/24/2022 Time: 16:26 Bed 5 Private MD: Diagnosis: Chest pain, unspecified;Type 2 diabetes mellitus with hyperglycemia Presentation: 01/24 16:46 Chief complaint: Patient states: Chest pain described as sharp, pressure, rated 9/10. tp1 continued after 0.4 mg of nitro administered by EMS and aspirin 81 mg X4. Coronavirus screen: Vaccine status: Patient reports receiving the 2nd dose of the covid vaccine. Ebola Screen: Patient denies exposure to infectious person. Patient denies travel to an Ebola-affected area in the 21 days before illness onset. Initial Sepsis Screen: Does the patient meet any 2 criteria? No. Patient's initial sepsis screen is negative. Does the patient have a suspected source of infection? No. Patient's initial sepsis screen is negative. Risk Assessment: Do you want to hurt yourself or someone else? Patient reports no desire to harm self or others. Onset of symptoms was January 24, 2022. 16:46 Method Of Arrival: EMS tp1 16:46 Acuity: TONE 2 tp1 Triage Assessment: 16:44 General: see nurse assessment . tp1 Historical: - Allergies: 16:44 NKA; tp1 - Home Meds: 16:44 venlafaxine 75 mg Oral tab 1 tab 2 times per day [Active]; furosemide 40 mg Oral tab 1 tp1 tab once daily [Active]; cyclobenzaprine 10 mg Oral tab 1 tab as needed [Active]; fenofibrate micronized 200 mg Oral Tb24 1 cap once daily [Active]; gabapentin 800 mg Oral tab 1 tab 3 times per day [Active]; Humulin N Pen 100 unit/mL (3 mL) Sub-Q inpn [Active]; glipizide 10 mg Oral tab 1 tab once daily [Active]; levothyroxine 50 mcg Tb24 1 cap once daily [Active]; lisinopril 2.5 mg Oral tab 1 tab once daily [Active]; spironolactone 25 mg Oral tab 1 tab once daily [Active]; omeprazole 20 mg Oral cpDR 1 cap once daily [Active]; tamsulosin 0.4 mg Oral Tb24 1 cap once daily [Active]; metformin 500 mg Oral tab 1 tab daily [Active]; atorvastatin 40 mg Oral tab 1 tab once daily [Active]; aspirin 81 mg Oral chew [Active]; apixaban 5 mg Oral tab 1 tab 2 times per day [Active]; albuterol sulfate 90 mcg/actuation Inhl aepb [Active]; - PMHx: 16:44 Pacemaker; Myocardial infarction; Hypothyroidism; 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 - Social history:: Smoking status: Patient denies any tobacco usage or history of. Screenin:52 Abuse screen: Denies threats or abuse. Has been threatened or abused. Nutritional tp1 screening: No deficits noted. Tuberculosis screening: No symptoms or risk factors identified. Fall Risk No fall in past 12 months (0 pts). Secondary diagnosis (15 points) impaired mobility, IV access (20 points). Ambulatory Aid- None/Bed Rest/Nurse Assist (0 pts). Gait- Impaired (20 pts.). Mental Status- Oriented to own ability (0 pts). Assessment: 16:36 Reassessment: Pt has not gotten his medications yet, pt reports "My car broke down and jl7 I can't find a ride to get my meds.". 16:40 General: Appears in no apparent distress. uncomfortable, Behavior is cooperative, tp1 anxious. Pain: Complains of pain in chest and right leg Pain does not radiate. Pain currently is 9 out of 10 on a pain scale. Quality of pain is described as pressure, sharp, Pain began 1 day ago. Neuro: Level of Consciousness is awake, alert, obeys commands, Oriented to person, place, time, situation. Neuro: Denies blurred vision dizziness. Neuro: Denies headache. Cardiovascular: Reports chest pain, shortness of breath, Patient's skin is warm and dry. Respiratory: Airway is patent Respiratory effort is even, unlabored. GI: Patient currently denies nausea, vomiting. : No signs and/or symptoms were reported regarding the genitourinary system. EENT: No signs and/or symptoms were reported regarding the EENT system. Derm: Skin is pink, warm \\T\\ dry. 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 Circulation, motion, and sensation intact. 17:40 Reassessment: Patient appears in no apparent distress at this time. No changes from tp1 previously documented assessment. Patient is alert, oriented x 3, equal unlabored respirations, skin warm/dry/pink. Continues to CO chest pain , provider notified. 18:31 Reassessment: Patient appears in no apparent distress at this time. Patient is alert, tp1 oriented x 3, equal unlabored respirations, skin warm/dry/pink. rates chest pain 6/10. 21:37 Reassessment: Pt discharged waiting for transportation. vc1 Vital Signs: 16:46 BP 152 / 90; Pulse 87; Resp 24; Pulse Ox 100% on R/A; tp1 17:52 BP 149 / 79; Pulse 80; Resp 30; Temp 97.0; Pulse Ox 100% on R/A; tp1 18:34 BP 128 / 76; Pulse 74; Resp 24; Pulse Ox 100% on R/A; tp1 19:15 BP 128 / 68; Pulse 74; Resp 21; Pulse Ox 99% ; vc1 20:00 BP 106 / 59; Pulse 73; Resp 16; Pulse Ox 98% ; vc1 20:45 BP 125 / 66; Pulse 81; Resp 18; Pulse Ox 100% ; vc1 ED Course: 16:26 Patient arrived in ED. jl7 16:35 Angel Merlos MD is Attending Physician. kdr 16:40 Opal Gomez RN is Primary Nurse. tp1 16:44 EKG done, by ED staff. tp1 16:44 Maintain EMS IV. Dressing intact. Good blood return noted. Site clean \\T\\ dry. Gauge \\T\\ tp 1 site: 20 G in L forearm . Patient maintains SpO2 saturation greater than 95% on room air. 16:50 Triage completed. tp1 16:51 Arm band placed on. tp1 16:53 Allergy band placed. Bed in low position. Call light in reach. Side rails up X2. Client tp1 placed on continuous cardiac and pulse oximetry monitoring. NIBP monitoring applied. 16:54 Troponin HS Sent. tp1 16:54 NT PRO-BNP Sent. tp1 16:54 CBC with Diff Sent. tp1 16:54 Basic Metabolic Panel Sent. tp1 17:11 XRAY Chest (1 view) In Process Unspecified. EDMS 19:12 Attending Physician role handed off by Angel Merlos MD caitlyn 19:12 Mustapha Cole MD is Attending Physician. caitlyn 19:22 role handed off by Violeta Friedman RN mw2 19:22 Primary Nurse role handed off by Opal Gomez RN mw2 19:42 Michelle Spivey, SHEBA is Primary Nurse. vc1 19:48 Primary Nurse role handed off by Michelle Spivey RN aa9 19:48 Rupa Morales, SHEBA is Primary Nurse. aa9 21:23 Kavin Keenan MD is Referral Physician. caitlyn Administered Medications: 17:01 Drug: Nitro-Bid (nitroglycerin) Ointment 2 % 1 inches Route: Transdermal; Site: tp1 anterior chest wall; 17:02 Drug: Zofran (Ondansetron) 4 mg Route: IVP; Site: left forearm; tp1 18:19 Follow up: Response: No change in condition tp1 17:04 Drug: Pepcid (famotidine) 20 mg Route: IVP; Site: left forearm; tp1 18:19 Follow up: Response: Pain is unchanged, physician notified tp1 17:05 Drug: morphine 4 mg Route: IVP; Infused Over: 4 mins; Site: left forearm; tp1 18:19 Follow up: Response: Pain is unchanged, physician notified tp1 17:46 Drug: Dilaudid (HYDROmorphone) 1 mg Route: IVP; Site: left forearm; tp1 18:33 Follow up: Response: Pain is decreased tp1 20:52 Drug: Dilaudid (HYDROmorphone) 1 mg Route: IVP; Site: left forearm; vc1 21:01 Follow up: Response: No adverse reaction; RASS: Alert and Calm (0) aa9 20:53 Drug: Zofran (Ondansetron) 4 mg Route: IVP; Site: left forearm; vc1 21:01 Follow up: Response: No adverse reaction aa9 Outcome: 21:23 Discharge ordered by . caitlyn 21:55 Patient left the ED. vc1 Signatures: Dispatcher [employer] EDMustapha Duggan MD MD cha Rittger, Kevin, MD MD kdr Leal, Jahala RN RN jl7 Michele Cobos 2 Opal Gomez RN RN tp1 Michelle Spivey RN RN vc1 Rupa Morales, SHEBA RN aa9 Corrections: (The following items were deleted from the chart) 16:50 16:46 General: see nurse assessment . tp1 tp1 17:06 16:44 Maintain EMS IV. Dressing intact. Good blood return noted. Site clean \\T\\ dry. tp1 Gauge \\T\\ site: 20 G in L AC. tp1
--- NOTE | 2022-01-24 21:23 | EDPHYS ---
Physician Documentation [facility] Name: Ernie Rooney Age: 61 yrs Sex: Male : 1960 Arrival Date: 01/24/2022 Time: 16:26 Bed 5 Private MD: ED Physician Mustapha Cole HPI: 01/24 16:52 This 61 yrs old Male presents to ER via EMS with complaints of Chest Pain. kdr 16:52 The patient or guardian reports chest pain that is located primarily in the substernal kdr area. Onset: suddenly, 1 hour(s) ago. The pain radiates to the left arm, the left shoulder, the left scapula. Associated signs and symptoms: Pertinent positives: nausea, shortness of breath. The chest pain is described as aching, burning, a pressure, sharp. Duration: The patient or guardian reports a single episode, that is still ongoing. Modifying factors: The symptoms are alleviated by nothing. the symptoms are aggravated by exertion, movement. Severity of pain: At its worst the pain was severe incapacitating in the emergency department the pain is unchanged. The patient has experienced similar episodes in the past, multiple times. Historical: - Allergies: 16:44 NKA; tp1 - Home Meds: 16:44 venlafaxine 75 mg Oral tab 1 tab 2 times per day [Active]; furosemide 40 mg Oral tab 1 tp1 tab once daily [Active]; cyclobenzaprine 10 mg Oral tab 1 tab as needed [Active]; fenofibrate micronized 200 mg Oral Tb24 1 cap once daily [Active]; gabapentin 800 mg Oral tab 1 tab 3 times per day [Active]; Humulin N Pen 100 unit/mL (3 mL) Sub-Q inpn [Active]; glipizide 10 mg Oral tab 1 tab once daily [Active]; levothyroxine 50 mcg Tb24 1 cap once daily [Active]; lisinopril 2.5 mg Oral tab 1 tab once daily [Active]; spironolactone 25 mg Oral tab 1 tab once daily [Active]; omeprazole 20 mg Oral cpDR 1 cap once daily [Active]; tamsulosin 0.4 mg Oral Tb24 1 cap once daily [Active]; metformin 500 mg Oral tab 1 tab daily [Active]; atorvastatin 40 mg Oral tab 1 tab once daily [Active]; aspirin 81 mg Oral chew [Active]; apixaban 5 mg Oral tab 1 tab 2 times per day [Active]; albuterol sulfate 90 mcg/actuation Inhl aepb [Active]; - PMHx: 16:44 Pacemaker; Myocardial infarction; Hypothyroidism; 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 - Social history:: Smoking status: Patient denies any tobacco usage or history of. ROS: 16:52 Constitutional: Negative for fever, chills, and weight loss, Eyes: Negative for injury, kdr pain, redness, and discharge, Neck: Negative for injury, pain, and swelling, Respiratory: Negative for shortness of breath, cough, wheezing, and pleuritic chest pain, Abdomen/GI: Negative for abdominal pain, nausea, vomiting, diarrhea, and constipation, Back: Negative for injury and pain, : Negative for injury, bleeding, discharge, and swelling, MS/Extremity: Negative for injury and deformity, Skin: Negative for injury, rash, and discoloration, Neuro: Negative for headache, weakness, numbness, tingling, and seizure activity. Psych: Negative for depression, anxiety, suicide ideation, homicidal ideation, and hallucinations, Allergy/Immunology: Negative for hives, rash, and allergies, Endocrine: Negative for neck swelling, polydipsia, polyuria, polyphagia, and marked weight changes, Hematologic/Lymphatic: Negative for swollen nodes, abnormal bleeding, and unusual bruising. 16:52 Cardiovascular: Positive for chest pain, Negative for edema, orthopnea, palpitations, paroxysmal nocturnal dyspnea. Exam: 16:52 Constitutional: This is a well developed, well nourished patient who is awake, alert, kdr and in no acute distress. Head/Face: Normocephalic, atraumatic. Eyes: Pupils equal round and reactive to light, extra-ocular motions intact. Lids and lashes normal. Conjunctiva and sclera are non-icteric and not injected. Cornea within normal limits. Periorbital areas with no swelling, redness, or edema. Neck: Trachea midline, no thyromegaly or masses palpated, and no cervical lymphadenopathy. Supple, full range of motion without nuchal rigidity, or vertebral point tenderness. No Meningismus. Chest/axilla: Normal chest wall appearance and motion. Nontender with no deformity. No lesions are appreciated. Cardiovascular: Regular rate and rhythm with a normal S1 and S2. No gallops, murmurs, or rubs. Normal PMI, no JVD. No pulse deficits. Respiratory: Lungs have equal breath sounds bilaterally, clear to auscultation and percussion. No rales, rhonchi or wheezes noted. No increased work of breathing, no retractions or nasal flaring. Abdomen/GI: Soft, non-tender, with normal bowel sounds. No distension or tympany. No guarding or rebound. No evidence of tenderness throughout. Back: No spinal tenderness. No costovertebral tenderness. Full range of motion. 16:52 Musculoskeletal/extremity: Bilateral BKA. 16:57 ECG was reviewed by the Attending Physician. kdr 19:50 Musculoskeletal/extremity: DVT Exam: No signs of deep vein thrombosis. no pain, no caitlyn swelling, no tenderness, negative Homans' sign noted on exam, no appreciated bluish discoloration, no erythema, no increased warmth, bilateral amputation. Vital Signs: 16:46 BP 152 / 90; Pulse 87; Resp 24; Pulse Ox 100% on R/A; tp1 17:52 BP 149 / 79; Pulse 80; Resp 30; Temp 97.0; Pulse Ox 100% on R/A; tp1 18:34 BP 128 / 76; Pulse 74; Resp 24; Pulse Ox 100% on R/A; tp1 19:15 BP 128 / 68; Pulse 74; Resp 21; Pulse Ox 99% ; vc1 20:00 BP 106 / 59; Pulse 73; Resp 16; Pulse Ox 98% ; vc1 20:45 BP 125 / 66; Pulse 81; Resp 18; Pulse Ox 100% ; vc1 MDM: 16:52 HEART Score: History: Moderately Suspicious (1), ECG: Non specific repolarization kdr disturbance / LBTB / PM (1), Age: > 45 and < 65 years (1), Risk Factors: > or = 3 Risk factors for atherosclerotic disease (2), [Hypertension] [DM]. Data reviewed: vital signs, nurses notes. 19:12 Patient medically screened. [facility] 01/24 16:52 Order name: Basic Metabolic Panel; Complete Time: 18:51 kdr 01/24 16:52 Order name: CBC with Diff; Complete Time: 18:51 [facility] 01/24 16:52 Order name: NT PRO-BNP; Complete Time: 18:51 [facility] 01/24 16:52 Order name: Troponin HS; Complete Time: 18:51 [facility] 01/24 16:52 Order name: XRAY Chest (1 view); Complete Time: 18:51 [facility] 01/24 17:45 Order name: Troponin High Sensitivity: Repeat 3 hours from initial draw; Complete Time: kdr 21:18 01/24 16:52 Order name: EKG; Complete Time: 16:52 [facility] 01/24 16:52 Order name: Cardiac monitoring; Complete Time: 16:53 [facility] 01/24 16:52 Order name: EKG - Nurse/Tech; Complete Time: 16:53 [facility] 01/24 16:52 Order name: IV Saline Lock; Complete Time: 16:53 [facility] 01/24 16:52 Order name: Labs collected and sent; Complete Time: 16:53 [facility] 01/24 16:52 Order name: O2 Per Protocol; Complete Time: 16:52 [facility] 01/24 16:52 Order name: O2 Sat Monitoring; Complete Time: 16:52 kdr EC:57 Rate is 88 beats/min. Rhythm is regular, Paced with No ectopy. Clinical impression: kdr Paced rhythm. Administered Medications: 17:01 Drug: Nitro-Bid (nitroglycerin) Ointment 2 % 1 inches Route: Transdermal; Site: tp1 anterior chest wall; 17:02 Drug: Zofran (Ondansetron) 4 mg Route: IVP; Site: left forearm; tp1 18:19 Follow up: Response: No change in condition tp1 17:04 Drug: Pepcid (famotidine) 20 mg Route: IVP; Site: left forearm; tp1 18:19 Follow up: Response: Pain is unchanged, physician notified tp1 17:05 Drug: morphine 4 mg Route: IVP; Infused Over: 4 mins; Site: left forearm; tp1 18:19 Follow up: Response: Pain is unchanged, physician notified tp1 17:46 Drug: Dilaudid (HYDROmorphone) 1 mg Route: IVP; Site: left forearm; tp1 18:33 Follow up: Response: Pain is decreased tp1 20:52 Drug: Dilaudid (HYDROmorphone) 1 mg Route: IVP; Site: left forearm; vc1 21:01 Follow up: Response: No adverse reaction; RASS: Alert and Calm (0) aa9 20:53 Drug: Zofran (Ondansetron) 4 mg Route: IVP; Site: left forearm; vc1 21:01 Follow up: Response: No adverse reaction aa9 Disposition Summary: 01/24/22 21:23 Discharge Ordered Location: Home caitlyn Problem: new caitlyn Symptoms: have improved caitlyn Condition: Stable caitlyn Diagnosis - Chest pain, unspecified caitlyn - Type 2 diabetes mellitus with hyperglycemia caitlyn Followup: caitlyn - With: Private Physician - When: 2 - 3 days - Reason: Recheck today's complaints, Continuance of care, Re-evaluation by your physician Followup: caitlyn - With: - When: 2 - 3 days - Reason: Recheck today's complaints, Re-evaluation by your physician Discharge Instructions: - Discharge Summary Sheet caitlyn - Nonspecific Chest Pain, Adult caitlyn - High-Fiber Diet caitlyn - Hyperglycemia caitlyn - Nonspecific Chest Pain, Adult, [id number] caitlyn - Diabetes Mellitus and Nutrition, Adult caitlyn - Aspirin and Your Heart caitlyn Forms: - Medication Reconciliation Form [facility] - Thank You Letter caitlyn - Antibiotic Education caitlyn - Prescription Opioid Use [facility] Prescriptions: - Pepcid 20 mg Oral Tablet - take 1 tablet by ORAL route every 12 hours for 10 days; 20 tablet; Refills: 0, caitlyn Product Selection Permitted Signatures: Dispatcher [employer] Mustapha Arredondo MD MD cha Rittger, Kevin, MD MD kdr Parker, Tiffany, RN RN tp1 Michelle Spivey RN RN vc1 Rupa Morales RN aa9
[2022-01-24 23:36] VITALS: TEMP 97
[2022-01-24 23:45] VITALS: BP 125/66; O2SAT 100
--- NOTE | 2022-01-25 14:32 | EKG ---
Test Date: 2022-01-24 Test Time: 16:31:53 Business Services Director: MICK MEASUREMENT RESULTS: Intervals: Rate: 88 [place]: 176 QRSD: 164 QT: 432 QTc: 522 [place]: P: 59 [place]: 176 QRS: -35 T: 138 INTERPRETIVE STATEMENTS: Atrial-sensed ventricular-paced rhythm Abnormal ECG Compared to ECG 01/17/2022 16:58:31 No significant changes Electronically Signed On 01-25-22 14:30:19 CDT by Kavin Keenan
== END 2022-01-24 21:55 | disposition home or self-care (01) ==
LOC: ER 16:25
DX: R07.89 Other chest pain (principal); E11.65 Type 2 diabetes mellitus with hyperglycemia; I10 Essential (primary) hypertension; Z95.0 Presence of cardiac pacemaker; Z79.82 Long term (current) use of aspirin; Z79.4 Long term (current) use of insulin
CPT/HCPCS: 93005; 85025; 80048; 36415; 84484 ×2; 83880; 71045; 96375; 96374; 99284; J1170 ×3; J2405 ×3

== ENCOUNTER 2022-01-28 00:02 | Observation (INO) | payer OTHER ==
--- OUTSIDE RECORDS SUMMARY | 2022-01-28 00:12 | XMS REPORT | Continuity of Care Document ---
:1960 Author Organization [facility] t Address [address] [place] [address] Care Team Providers Name Role Phone MONIKA HALL MD Primary Care Physician [id number] Attending Clinician Unavailable Harshal Zhu Attending Clinician [...] Clinician Unavailable NICHELLE PALACIOS Attending Clinician Unavailable [id number] Admitting Clinician Unavailable Nika Martin Admitting Clinician [...] Expiration Date S willow [facility] [id number] [facility] [id number] 2018spring 00:00:00 [place] [id number] 2004 LUCY Frankel [facility]:00 [facility] [...] y of l artery l artery 00:00: [place] disease) disease) 00 Medica l Branch Anemia [...] Added automatic ally from request for surgery [id number] Troponin I Troponin I Disease Active 2019- [...] 00:00: [place] involving involving 00 Medi uriel [place] 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 Type 2 Type 2 Disease Active 2019- Univers diabetes diabetes 01-17 ity of mellitus mellitus 00:00: [place] without without 00 Medical complicati complicati Br anch on, on, without without long-term long-term current current use of use of insulin insulin Essential Essential Disease Active Uni vers hypertensi hypertensi 01-17 it y of on on 00:00: [place] [address] Medical Branch Other Other Disease Active Univers hyperlipid hyperlipid 01-17 it y of emia emia 00:00: [place] [address] Medical Branch Stroke Stroke Disease Active Univers 5-12 ity of 00:00: [place] [facility] Left-sided Left-sided Disease Active U nivers weakness weakness 5- ity of 00:00: [place] [facility] Left sided Left sided Disease Active U nivers numbness numbness - ity of 00:00: [place] 00 Medical Branch S/P admn S/P admn Disease Active Unive rs tPA in tPA in 4-11 ity of diff fac diff fac 00:00: [place] w/n last w/n last 00 Medica l 24 hr bef 24 hr bef Bran ch adm to adm to crnt fac crnt fac Unstable Unstable Disease Active Unive rs angina angina 4-10 ity of 00:00: [place] [facility] Atypical Atypical Disease Active Unive rs chest pain chest pain 2-22 it y of 00:00: [place] [facility] [place] Chest pain Chest pain Problem Active [facility] Coronary CAD Problem Active [facility] artery (coronary [facility] disease artery Patient disease) [facility] [place] Diabetic DKA Problem Active [facility] ketoacidos (diabetic Esme es is ketoacidos Patien t es) Medical [place] Hyperglyce Hyperglyce Problem Active [facility] bambi bambi [facility] Hypertensi Hypertensi Problem Active [facility] on on [facility] Pancreatit Pancreatit Problem Active [facility] is is [facility] Uncontroll Uncontroll Problem Active [facility] ed ed [facility] diabetes diabetes Patien t mellitus mellitus Medica l Center Allergies, Adverse Reactions, Alerts Allergy Allergy Status Severity Reaction(s) Onset Inactive Treating Comm ents Source Name Type Date Date Clinician No Known DA Active U 2021-0 [facility] [place] [facility] 00:00: d 00 [facility] No Known DA Active U 2020-0 [facility] Allergie 3-22 [place] 00:00: d 00 [facility] No Known DA Active U 2017- [facility] Allergie 2-31 Clear s 00:00: Mejia 00 [facility] No Known DA Active U 2018-1 [facility] Allergie 2-31 Clear s 00:00: Mejia 00 [facility] No Known DA Active U 2018-0 [facility] Allergie 3-26 [place] s 00:00: e 00 [facility] NO KNOWN Drug Active Univers ALLERGIE Class ity of S [place] [facility] Social History Social Habit Start Date Stop Date Quantity Comments Source History of Cigarette Smoker Universi ty of tobacco use [place] [facility] History SDOH University o f Alcohol Frequency [place] M edical Branch History SDOH University o f Alcohol Std [place] Medical Drinks Branch History SDOH University o f Alcohol Binge [place] Medic al Branch Exposure to 2021-10-30 2021-11-09 Unable to assess Univers ity of SARS-CoV-2 00:00:00 15:13:00 [facility] (event) Branch Alcohol intake 2021-11-05 2021-11-05 1.71 /d University of 00:00:00 00:00:00 [facility] Branch Tobacco Comment 2021-11-03 2021-11-03 quit 15 years ago Un iversity of 00:00:00 00:00:00 [place] [facility] Education 2021-10-27 2021-10-27 9 University of 00:00:00 00:00:00 [place] [facility] History SDOH 2020-03-16 2020-03-16 3 University o f Financial 00:00:00 00:00:00 [place] [facility] History SDOH Food 2020-03-16 2020-03-16 2 Univers ity of Worry 00:00:00 00:00:00 [place] [facility] History SDKS Food 2020-03-16 2020-03-16 2 Univers ity of Scarcity 00:00:00 00:00:00 [place] [facility] History SDOH 2020-03-16 2020-03-16 1 University o f Transport Med 00:00:00 00:00:00 [place] Medic al Branch History SDOH 2020-03-16 2020-03-16 1 University o f Transport Non-Med 00:00:00 00:00:00 [place] M edical Branch Alcohol Comment 2019-07-18 2019-07-18 quit drinking [employer] of 00:00:00 00:00:00 2013 but drank [facility] heavily before Branch this Tobacco use and 2018-07-14 2018-07-14 Never used Universit y of exposure 00:00:00 00:00:00 [facility] Sex Ass[birth year] At [birth year] Universit y of 00:00:00 00:00:00 [facility] Smoking Status Start Date Stop Date Source Former smoker 2018-07-14 00:00:00 2018-07-14 00:00:00 [facility] Medications Ordered Filled Start Stop Current Ordering [...] at 0215, 1 mL gabapentin 2021- Yes [id number] 300mg Take 1 Univers 300 mg 11-05 capsule by ity of capsule 00:00: 04:59 mouth 3 [place] 00 :00 (three) Medical times Branch daily for 10 days. gabapentin 2021- Yes [id number] 300mg Take 1 Univers 300 mg 11-05 capsule by ity of capsule 00:00: 04:59 mouth 3 [place] 00 :00 (three) Medical times Branch daily for 10 days. aspirin 81 2021- Yes [id number] 81mg Take 1 Univers mg chewable 6-16 07-17 tablet by it y of tablet 00:00: 04:59 mouth [place] 00 :00 daily for Medical 30 days. Branch aspirin 81 2021- Yes [id number] 81mg Take 1 Univers mg chewable 6-16 07-17 tablet by it y of tablet 00:00: 04:59 mouth [place] 00 :00 daily for Medical 30 days. Branch aspirin 81 2021- Yes [id number] 81mg Take 1 Univers mg chewable 6-16 07-17 tablet by it y of tablet 00:00: 04:59 mouth [place] 00 :00 daily for Medical 30 days. Branch proMETHazin Yes [id number] 25mg Take 1 Univers e 25 mg 6-03 tablet by ity of tablet 00:00: mouth [place] 00 every 6 Medical (six) Branch hours as needed for Nausea and Vomiting (N/V). proMETHazin Yes [id number] 25mg Take 1 Univers e 25 mg 6-03 tablet by ity of tablet 00:00: mouth [place] 00 every 6 Medical (six) Branch hours as needed for Nausea and Vomiting (N/V). proMETHazin 2022-0 Yes [id number] 25mg Take 1 Univers e 25 mg 6-03 tablet by ity of tablet 00:00: mouth [place] 00 every 6 Medical (six) Branch hours as needed for Nausea and Vomiting (N/V). fenofibrate 2021- No [id number] 134mg Take 1 Univers micronized -19 12- capsule by it y of 134 mg 00:00: 04:59 mouth [place] capsule 00 :00 daily for Medical 30 days. Branch lisinopriL 2021- No [id number] 2.5mg Take 1 Univers 2.5 mg -19 12- tablet by ity of tablet 00:00: 04:59 mouth [place] 00 :00 daily for Medical 30 days. Branch fenofibrate 2021- No [id number] 134mg Take 1 Univers micronized -19 12- capsule by it y of 134 mg 00:00: 04:59 mouth [place] capsule 00 :00 daily for Medical 30 days. Branch lisinopriL 2021- No [id number] 2.5mg Take 1 Univers 2.5 mg -19 12- tablet by ity of tablet 00:00: 04:59 mouth [place] 00 :00 daily for Medical 30 days. Branch fenofibrate 2021- No [id number] 134mg Take 1 Univers micronized -19 12- capsule by it y of 134 mg 00:00: 04:59 mouth [place] capsule 00 :00 daily for Medical 30 days. Branch lisinopriL 2021- No [id number] 2.5mg Take 1 Univers 2.5 mg -19 12- tablet by ity of tablet 00:00: 04:59 mouth [place] 00 :00 daily for Medical 30 days. Branch furosemide 2021- No [id number] 40mg Take 1 Univers 40 mg 5-30 [...] s: atrial fibrillati on calcitrioL 2021- No [id number] .5ug Take 1 Univers 0.5 mcg 5-30 06-30 capsule by ity o f capsule 00:00: 04:59 mouth [place] 00 :00 daily for Medical 30 days. Branch insulin NPH 2021- No [id number] 5U inject 5 Univers (HUMULIN N 5-30 06-30 Units ity of NPH U-100 00:00: 04:59 [place] INSULIN[place] 00 :00 skin every Medic al 100 unit/mL evening Branc h injection for 30 days. atorvastati 2021- No [id number] 40mg Take 1 Univers n 40 mg 5-30 -30 tablet by ity of tablet 00:00: 04:59 mouth at [place] 00 :00 bedtime Medical for 30 Branch days. carvediloL 2021- No [id number] 3.125mg Take 1 Univers 3.125 mg 5-30 06-30 tablet by ity o f tablet 00:00: 04:59 mouth 2 [place] 00 :00 (two) Medical times [place] daily with meals for 30 days. furosemide 2021- No [id number] 40mg Take 1 Univers 40 mg 5-30 06-30 tablet by ity of tablet 00:00: 04:59 mouth [place] 00 :00 every Medical morning Branch and evening for 30 days. apixaban 5 2021- No [id number] 5mg Take 1 Univ ers mg tablet 5-30 06-30 tablet by ity of 00:00: 04:59 mouth 2 [place] 00 :00 (two) Medical times [place] daily for 30 days. Indication s: atrial fibrillati on calcitrioL 2021- No [id number] .5ug Take 1 Univers 0.5 mcg 5-30 06-30 capsule by ity o f capsule 00:00: 04:59 mouth [place] 00 :00 daily for Medical 30 days. Branch insulin NPH 2021- No [id number] 5U inject 5 Univers (HUMULIN N 5-30 06-30 Units ity of NPH U-100 00:00: 04:59 [place] INSULIN[place] 00 :00 skin every Medic al 100 unit/mL evening Branc h injection for 30 days. atorvastati 2021- No [id number] 40mg Take 1 Univers n 40 mg 5-30 06-30 tablet by ity of tablet 00:00: 04:59 mouth at [place] 00 :00 bedtime Medical for 30 Branch days. carvediloL 2021- No [id number] 3.125mg Take 1 Univers 3.125 mg 5-30 -30 tablet by ity o f tablet 00:00: 04:59 mouth 2 [place] 00 :00 (two) Medical times Branch daily with meals for 30 days. furosemide 2021- No [id number] 40mg Take 1 Univers 40 mg 5-30 [...] s: atrial fibrillati on calcitrioL 2021- No [id number] .5ug Take 1 Univers 0.5 mcg 5-30 -30 capsule by ity o f capsule 00:00: 04:59 mouth [place] 00 :00 daily for Medical 30 days. Branch insulin NPH 2021- No [id number] 5U inject 5 Univers (HUMULIN N 5-30 06-30 Units ity of NPH U-100 00:00: 04:59 [place] INSULIN[place] 00 :00 skin every Medic al 100 unit/mL evening Branc h injection for 30 days. atorvastati 2021- No [id number] 40mg Take 1 Univers n 40 mg 5-30 -30 tablet by ity of tablet 00:00: 04:59 mouth at [place] 00 :00 bedtime Medical for 30 Branch days. carvediloL 2021- No [id number] 3.125mg Take 1 Univers 3.125 mg 5-30 -30 tablet by ity o f tablet 00:00: 04:59 mouth 2 [place] 00 :00 (two) Medical times Branch daily with meals for 30 days. metFORMIN Yes [id number] 500mg Take 1 U nivers 500 mg 3-02 tablet by ity of tablet 00:00: mouth 2 [place] 00 (two) Medical times Branch daily with meals. metFORMIN 0 Yes [id number] 500mg Take 1 U nivers 500 mg 3-02 tablet by ity of tablet 00:00: mouth 2 [place] (two) Medical times Branch daily with meals. metFORMIN 0 Yes [id number] 500mg Take 1 U nivers 500 mg 3-02 tablet by ity of tablet 00:00: mouth 2 [place] (two) Medical times Branch daily with meals. albuterol Yes [id number] 2{puff} Inhale 2 Univers 90 2-21 Puffs 2 ity of mcg/actuati 00:00: (two) [place] on inhaler 00 times Medical daily. Branch collagenase Yes [id number] Use as Univers 250 2-21 directed ity of unit/gram 00:00: by office Juan J as ointment 00 Medical Branch cyclobenzap Yes [id number] 10mg Take 1 Univers rine 10 mg 2-21 tablet by ity of tablet 00:00: mouth 2 [place] (two) Medical times Branch daily as needed for Muscle Spasms. dextrometho Yes [id number] 10mL Take 10 mL Univers rphan-guaif 2-21 by mouth ity of enesin 00:00: every 6 [place] 10-100 mg/5 00 (six) Medical mL solution hours as Bran ch needed for Cough. HYDROcodone Yes 1{tbl} Take 1 Un charley -acetaminop 2-21 tablet by ity of hen 5-325 00:00: mouth [place] mg tablet 00 every 6 Medical (six) Branch hours as needed for Pain (scale 4-6). melatonin 3 0 Yes [id number] 3mg Take 1 Univers mg tablet 2-21 tablet by ity o f 00:00: mouth at [place] 00 bedtime. Medical Branch ondansetron 0 Yes [id number] 4mg Take 1 Univers 4 mg 2-21 tablet by ity of disintegrat 00:00: mouth [place] ing tablet 00 every 8 Medica l (eight) Branch hours as needed for Nausea and Vomiting (N/V). albuterol 0 Yes [id number] 2{puff} Inhale 2 Univers 90 2-21 Puffs 2 ity of mcg/actuati 00:00: (two) [place] on inhaler 00 times Medical daily. Branch collagenase Yes [id number] Use as Univers 250 2-21 directed ity of unit/gram 00:00: by office Juan J as ointment 00 Medical Branch cyclobenzap Yes [id number] 10mg Take 1 Univers rine 10 mg 2-21 tablet by ity of tablet 00:00: mouth 2 [place] 00 (two) Medical times Branch daily as needed for Muscle Spasms. dextrometho 0 Yes [id number] 10mL Take 10 mL Univers rphan-guaif 2-21 [...] Pain (scale 4-6). melatonin 3 0 Yes [id number] 3mg Take 1 Univers mg tablet 2-21 tablet by ity o f 00:00: mouth at [place] 00 bedtime. Medical Branch ondansetron 0 Yes [id number] 4mg Take 1 Univers 4 mg 2-21 tablet by ity of disintegrat 00:00: mouth [place] ing tablet 00 every 8 Medica l (eight) Branch hours as needed for Nausea and Vomiting (N/V). albuterol Yes [id number] 2{puff} Inhale 2 Univers 90 2-21 Puffs 2 ity of mcg/actuati 00:00: (two) [place] on inhaler 00 times Medical daily. Branch collagenase 0 Yes [id number] Use as Univers 250 2-21 directed ity of unit/gram 00:00: by office Juan J as ointment 00 Medical Branch cyclobenzap Yes [id number] 10mg Take 1 Univers rine 10 mg 2-21 tablet by ity of tablet 00:00: mouth 2 [place] 00 (two) Medical times Branch daily as needed for Muscle Spasms. dextrometho 0 Yes [id number] 10mL Take 10 mL Univers rphan-guaif 2-21 [...] for Pain (scale 4-6). melatonin 3 Yes [id number] 3mg Take 1 Univers mg tablet 2-21 tablet by ity o f 00:00: mouth at [place] 00 bedtime. Medical Branch ondansetron Yes [id number] 4mg Take 1 Univers 4 mg 2-21 tablet by ity of disintegrat 00:00: mouth [place] ing tablet 00 every 8 Medica l (eight) Branch hours as needed for Nausea and Vomiting (N/V). Aspirin 81 Aspirin 81 2018- No Alexis [address] Mg Tab.chew Mg Tab.chew 10-26 Brooke Frankel 00:00: 00:00 Patient 00 :00 [facility] Diflunisal Diflunisal 2015- No Todd Wynn [address] [facility] (Dolobid) (Dolobid) 01-17[facility] 500 Mg 500 Mg 00:00: 00:00 Patient Tablet, 500 Tablet, 500 00 :00 M edical Mg Oral Mg Oral [place] Ondansetron Ondansetron 2015- No Todd Wynn [address] [facility] Hcl Hcl 01-17 Sage as Luke s (Zofran*) 4 (Zofran*) 4 00:00: 00:00 needed for Patient Mg Tablet, Mg Tablet, 00 :00 Nausea M edical 4 Mg 4 Mg [place] Sublingual Sublingual Clopidogrel Clopidogrel Yes 75 Daily [...] [facility] nophen nophen needed for Patie nt ([place] ([place] [facility] 10-325 10-325 Center Tablet) 1 [...] Mg 20 Mg [facility] Capsule.dr Lind.dr John [facility] Simvastatin Simvastatin Yes [address] 80 Mg 80 Mg [facility] Tablet Tablet Patient [facility] Tamsulosin Tamsulosin Yes Daily [facility] Hcl 0.4 Mg Hcl 0.4 Mg Esme es Cap.er.24h Cap.er.24h Pat [facility] Tramadol Tramadol Yes 50 Four [...] Navid tietangela Mg Oral Mg Oral :00 [facility] Center Insulin Insulin 2016- No [...] 06-17 [facility] Capsule., Capsule., 00:00 Patient :00 [facility] Insulin Insulin No Twice A [facility] S [...] 25 Mg Oral 25 Mg Oral :00 [facility] Albuterol Albuterol [address] [...] 00:00 Patient Mg Oral Mg Oral :00 [facility] Center Methocarbam Methocarbam No 500 [...] 00:00 Patient Mg Oral Mg Oral :00 [facility] Center Nitroglycer Nitroglycer No .4 [...] Manjula ent Gm Oral Gm Oral :00 [facility] Temazepam Temazepam [address] (Restoril) (Restoril) 11-23 Theresa kes 30 Mg 30 Mg 00:00 Patient Capsule, 30 Capsule, 30 :00 M edical Mg Oral Mg Oral Center Tizanidine Tizanidine No [address] Hcl 4 Mg Hcl 4 Mg 11-23 [facility] Capsule, 4 Capsule, 4 00:00 Pa tient Mg Oral Mg Oral :00 [facility] Trazodone Trazodone No [address] Hcl 50 Mg Hcl 50 Mg 11-23 Luke s Tablet, 50 Tablet, 50 00:00 Pa tient Mg Oral Mg Oral :00 [facility] Venlafaxine Venlafaxine No 37.[address] [facility] Hcl 37.5 Mg Hcl 37.5 Mg 11-23 Day [facility] Tablet, Tablet, 00:00 Patient 37.5 Tab 37.5 Tab :00 Medical Oral Oral Center Cyclobenzap Cyclobenzap [address] rine Hcl 10 rine Hcl 10 12-19 Times A [facility] Mg Tablet, Mg Tablet, 00:00 Day Pa tient 10 Mg Oral 10 Mg Oral :00 [facility] ical [place] Gabapentin Gabapentin No [address] 300 Mg 300 Mg 12-19 Times A [facility] Capsule, Capsule, 00:00 Day Patien t 600 Mg Oral 600 Mg Oral :[address] [facility] Pregabalin Pregabalin No 150 Twice A [...] Immunizations Ordered Filled Immunization Date Status Comments [facility] e Immunization Name Name Influenza Virus 2021-01-16 Completed Universit y of Vaccine 00:00:00 [facility] Influenza Virus 2021-01-16 Completed Universit y of Vaccine 00:00:00 [facility] Influenza Virus 2021-01-16 Completed Universit y of Vaccine 00:00:00 [facility] SARS-COV-2 COVID-19 2020-10-16 Completed Unive rsity of PEDRO/J&J VACCINE 00:00:00 [facility] SARS-COV-2 COVID-19 2020-10-16 Completed Unive rsity of PEDRO/J&J VACCINE 00:00:00 [facility] SARS-COV-2 COVID-19 2020-10-16 Completed Unive rsity of PEDRO/J&J VACCINE 00:00:00 [facility] Influenza Virus 2020-01-21 Completed Universit y of Vaccine 00:00:00 [facility] Influenza Virus 2020-01-21 Completed Universit y of Vaccine 00:00:00 [facility] Influenza Virus 2020-01-21 Completed Universit y of Vaccine 00:00:00 [facility] Zoster Vaccine 2019-07-17 Completed University of Recombinant 00:00:00 [facility] Zoster Vaccine 2019-07-17 Completed University of Recombinant 00:00:00 [facility] Zoster Vaccine 2019-07-17 Completed University of Recombinant 00:00:00 [facility] Td 2019-03-29 Completed University of 00:00:00 [facility] Td 2019-03-29 Completed University of 00:00:00 [facility] Td 2019-03-29 Completed University of 00:00:00 [facility] Influenza Virus 2018-02-18 Completed Universit y of Vaccine 00:00:00 [facility] Pneumococcal 2018-02-18 Completed University o f Polysaccharide, 00:00:00 [place] Med ical PPSV23 (PNEUMOVAX) [place] Influenza Virus 2018-02-18 Completed Universit y of Vaccine 00:00:00 [facility] Pneumococcal 2018-02-18 Completed University o f Polysaccharide, 00:00:00 [place] Med ical PPSV23 (PNEUMOVAX) [place] Influenza Virus 2018-02-18 Completed Universit y of Vaccine 00:00:00 [facility] Pneumococcal 2018-02-18 Completed University o f Polysaccharide, 00:00:00 [place] Med ical PPSV23 (PNEUMOVAX) [place] Influenza Virus 2008-03-19 Completed Universit y of Vaccine 00:00:00 [facility] Pneumococcal 2008-03-19 Completed University o f Polysaccharide, 00:00:00 [place] Med ical PPSV23 (PNEUMOVAX) Branch Influenza Virus 2008-03-19 Completed Universit y of Vaccine 00:00:00 [facility] Pneumococcal 2008-03-19 Completed University o f Polysaccharide, 00:00:00 [place] Med ical PPSV23 (PNEUMOVAX) Branch Influenza Virus 2008-03-19 Completed Universit y of Vaccine 00:00:00 [facility] Pneumococcal 2008-03-19 Completed University o f Polysaccharide, 00:00:00 [facility] ical PPSV23 (PNEUMOVAX) Branch Vital Signs Vital Name Observation Time Observation Value Comments Source Systolic blood 2021-11-09 23:00:00 124 mm[Hg] Univer sity of pressure [facility] Diastolic blood 2021-11-09 23:00:00 69 mm[Hg] Unive rsity of [facility] Heart rate 2021-11-09 23:00:00 72 /min [facility] ty [facility] Respiratory rate 2021-11-09 23:00:00 25 /min [facility] Oxygen saturation in 2021-11-09 23:00:00 98 /min University of Arterial blood by [place] [employer] uriel Pulse oximetry Branch Body temperature 2021-11-09 20:28:39 37.22 Sandy [facility] Body height 2021-11-09 20:16:00 170.2 cm [facility] Body weight 2021-11-09 20:16:00 71.215 kg [facility] BMI 2021-11-09 20:16:00 24.59 kg/m2 [facility] Systolic blood 2021-11-05 10:00:00 134 mm[Hg] Univer sity of [facility] Diastolic blood 2021-11-05 10:00:00 78 mm[Hg] Unive rsity of [facility] Heart rate 2021-11-05 10:00:00 81 /min [facility] ty [facility] Body temperature 2021-11-05 08:10:00 36.28 Sandy [facility] ersity [facility] Respiratory rate 2021-11-05 08:00:00 18 /min Univ ersity [facility] Oxygen saturation in 2021-11-05 08:00:00 99 /min University of Arterial blood by [place] uriel Pulse oximetry Branch Body height 2021-11-05 05:48:00 170.2 cm [facility] Body weight 2021-11-05 05:48:00 71.215 kg [facility] BMI 2021-11-05 05:48:00 24.59 kg/m2 [facility] Procedures Procedure Date / Time Performing Clinician Source Performed XR CHEST 1 VW 2021-11-09 21:07:00 Troy Ku Mckenzie [facility] POCT GLUCOSE 2021-11-09 20:25:00 Troy Ku Mckenzie [facility] (AUTOMATED) [facility] MAGNESIUM 2021-11-09 20:19:00 Kings [facility] TROPONIN I 2021-11-09 20:19:00 [facility] COMP. METABOLIC PANEL 2021-11-09 20:19:00 Troy Ku [facility] ([id number]) [facility] CBC WITH DIFF 2021-11-09 20:19:00 Troy Ku [facility] N-TERMINAL PRO-BNP 2021-11-09 20:19:00 Troy Ku [facility] XR CHEST 1 2021-11-05 06:38:35 Mihaela Martin [facility] [id number] 2020-08-11 00:00:00 ALDMO [facility] [id number] 2020-08-11 00:00:00 ALDMO [facility] [id number] 2020-08-11 00:00:00 ALDMO [facility] [id number] 2020-08-11 00:00:00 ALDMO [facility] Computed tomography 2017-10-24 00:00:00 ALEXIS [facility] Patient angiography of brain [facility] CT angiography of chest 2017-10-23 00:00:00 KHAI WAHL V C HI [facility] Computed tomography of 2017-10-23 00:00:00 KHAI WAHL [facility] Patient brain [facility] radiopaque contrast Computed tomography of 2017-04-04 [...] Clinicians Facility Department ID 2021-06-17 Outpatient 3 [id number] ENCKY MALDONADO [id number] ENCKY 10:24:03 [id number] 2021-06-17 Outpatient 3 [id number] ENCKY REF ENCKY 10:22:04 [id number] 2020-08-23 Inpatient HCACL FERNANDO [id number] [facility] 17:41:00 84 [facility] 2020-04-04 Inpatient Marko, HCAMN HCAMN [id number] [facility] 14:40:00 Harshal [id number] [facility] 2019-10-15 Inpatient RADHA Shah, HCAPM ENDO [facility] 15:30:00 Finn [id number] [facility] 2021-11-09 2021-11-09 Emergency X KINGS, K [facility] ERT [id number] Univers 15:15:00 18:32:00 ity [facility] 2021-11-09 2021-11-09 Emergency Kings, K [facility] [id number] Univers 15:15:00 18:32:00 Mckenzie PEREZ [id number] i ty [facility] [id number] [facility] [id number] [address] 2021-11-05 2021-11-05 Emergency X [facility] ERT [id number] Univers 00:44:00 06:53:00 MIHAELA baugh [facility] 2021-11-05 2021-11-[address] [facility] [id number] Univers 00:44:00 06:53:00 Mihaela PEREZ [id number] ity [facility] 4.2.7.2.686 [facility] [id number] [address] 2021-11-04 2021-11-04 Transition RIVAS Feliciano 1.2.840.114 [id number] Univers 00:00:00 00:00:00 of Jennifer DUQUE 350.1.13.10 it y of MARIE 4.2.7.2.686 Noe beckett [id number] [facility] [address] 2021-11-02 2021-11-03 Outpatient X BRAYDON, [facility] [id number] Univers 22:35:00 15:46:00 OC [facility] 2021-10-27 2021-10-29 [facility] [id number] Univers 17:41:00 14:03:00 ANA MARIA [facility] 2021-07-21 2021-07-21 Outpatient Tej_H VFP VFP [id number] [facility] 06:58:00 06:58:00 [id number] Family Practic e 2020-10-30 2020-11-05 [facility] [id number] [facility] 16:50:00 13:52:00 Fede 12772 [facility] 2020-10-31 2020-10-31 Outpatient AMELIA Carrera LABO [id number] [facility] 08:22:00 08:22:00 Fede 73 [facility] 2020-10-28 2020-10-28 Hospital Radiology [facility] 1.2.840.114 [id number] 08:30:17 23:59:00 Encounter Sera 350.1.13.10 [place] 4.2.7.2.686 [place] [id number] 807 2020-10-12 2020-10-12 Outpatient R CHANTELLE [facility] [id number] Univers 14:00:00 14:50:48 PERLA [facility] 2020-10-06 2020-10-06 Office Ivana [facility] 1.2.840.114 [id number] 909 10:43:51 11:59:29 Visit Gina Perez 350.1.13.10 [place] 4.2.7.2.686 Professio [id number] [address] 2020-08-19 2020-08-19 Outpatient PEGGY THORPE OPLA [id number] [facility] 07:13:00 07:13:00 DOES_NOT 89 [facility] 2020-08-10 2020-08-14 Inpatient AMELIA Carey INTE.02 [id number] [facility] 09:09:00 18:56:00 Johnie 31 [facility] 2017-10-23 2017-10-27 Discharged 1 BROOKE, [facility] [id number] 17:29:00 16:54:00 Inpatient ALEXIS 90 Luke s [facility] 2017-04-03 2017-04-04 Departed ER TAVON, [facility] [id number] 23:17:00 03:53:00 Emergency LAIRD 58 Luke s Room [facility] 2017-03-05 2017-03-09 Discharged ER PHILIP, [facility] [id number] 06:54:00 10:58:00 Inpatient NICHELLE 46 Luke s (obs) [facility] 2017-01-04 2017-01-[address] [facility] [id number] 10:33:00 18:56:00 Inpatient 63 Luke s (obs) [facility] Results Test Description Test Time Test Comments Results Result Comments Source TROPONIN I 2021-11-09 20:57:59 Test Item Value Reference Range Interpretation Comme nts TROPONIN I (test code = 0.017 ng/mL See_Comment [Au tomated message] The [id number]) system which ge nerated this result tra [...] biotin. Lab Interpretation Normal (test code = 76146-2) [id number] 20:54:59 Test Item Value Reference Range Interpretation Comments NT-proBNP (test code 6490 pg/mL See_Comment H [Autom ated = 7201039736) message] The system which generated this result transmitted reference range : <=125. The reference range was not used to interpret this result as normal/abnormal . DIANE (test code = DIANE) Biotin has been reported to cause a negative bias, interpret results relative to patient's use of biotin. Lab Interpretation Abnormal (test code = 03419-4) [facility] 20:46:35 Test Item Value Reference Range Interpretation Comments MAGNESIUM (test code = 0100658246) 1.5 mg/dL 1.7-2.4 L Lab Interpretation (test code = Abnormal 87956-0) [facility] MET[facility]OLIC PAN[facility] (61286)2021-11-09 20:46:34 Test Item Value Reference Range Interpretation Comments NA (test code = 140 mmol/L 135-145 7225559685) K (test code = 3.9 mmol/L 3.5-5.0 8300068895) CL (test code = 111 mmol/L 98-108 H 5920140438) CO2 TOTAL (test code = 16 mmol/L 23-31 L 9699003962) AGAP (test code = 2-16 9963341235) BUN (test code = 14 mg/dL 7-23 0867572774) GLUCOSE (test code = 189 mg/dL 70-110 H 2116356995) CREATININE (test code = 0.66 mg/dL 0.60-1.25 2942873659) TOTAL BILI (test code = 0.8 mg/dL 0.1-1.3 3360599693) CALCIUM (test code = 8.3 mg/dL 8.6-10.6 L 6204639251) T PROTEIN (test code = 6.5 g/dL 6.3-8.2 4381766614) ALBUMIN (test code = 3.3 g/dL 3.5-5.0 L 4107366376) ALK PHOS (test code = 136 U/L 34-122 H 0254793962) ALTv (test code = 18 U/L 5-50 1742-6) AST(SGOT) (test code = 26 U/L 13-40 4982066691) eGFR (test code = mL/min/1.73m2 6684995354) DIANE (test code = DIANE) Association of [...] tests). Lab Interpretation Abnormal (test code = 24107-1) [facility] WITH [id number] 20:33:30 Test Item Value Reference Range Interpretation Comments WBC (test code = See_Comment [Automated 7581-2) message] The sy stem which generated this result transmitted reference range : 4.20 - 10.70 10*3/?L. The reference range was not used to interpret this result as normal/abnormal . RBC (test code = See_Comment [Automated 729-3) message] The sy stem which generated this [...] RDW-SD (test code = 45.4 fL 38.5-51.6 89919-5) RDW-CV (test code = 14.2 % 12.1-15.4 788-0) PLT (test code = See_Comment [Automated 777-3) message] The sy stem which generated this result transmitted reference range : 150 - 328 10*3/ ?L. The reference r batsheva was not used to interpret this result as normal/abnormal . MPV (test code = 9.8 fL 9.8-13.0 97909-7) NRBC/100 WBC (test See_Comment [Automat ed code = 2365877828) message] The system which generated this result transmitted reference range : 0.0 - 10.0 /100 WBCs. The refer ence range was not u sed to interpret th is result as normal/abnormal . NRBC x10^3 (test code <0.01 See_Comment [Auto mated = 5385276120) message] The s ystem which generated this result transmitted reference range : 10*3/?L. The reference range was not used to interpret this result as normal/abnormal . GRAN MAT (NEUT) % 62.3 % (test code = 770-8) IMM GRAN % (test code 0.80 % = 4696891708) LYMPH % (test code = 25.1 % 736-9) MONO % (test code = 6.7 % 5905-5) EOS % (test code = 4.7 % 713-8) BASO % (test code = 0.4 % 706-2) GRAN MAT x10^3(ANC) 4.76 10*3/uL 1.99-6.95 (test code = 3983332724) IMM GRAN x10^3 (test 0.06 10*3/uL 0.00-0.06 code = 5293934536) LYMPH x10^3 (test code 1.92 10*3/uL 1.09-3.23 = 731-0) MONO x10^3 (test code 0.51 10*3/uL 0.36-1.02 = 742-7) EOS x10^3 (test code = 0.36 10*3/uL 0.06-0.53 711-2) BASO x10^3 (test code 0.03 10*3/uL 0.01-0.09 = 704-7) Lab Interpretation Abnormal (test code = 00027-7) [facility]2021-11-09 20:27:39 Test Item Value Reference Range Interpretation Comments POCT GLU (test code = 7933816156) 190 mg/dL 70-110 H Lab Interpretation (test code = Abnormal 67195-5) [facility] [id number] 11:52:00 Test Item Value Reference Range Interpretation Comments GLUCOSE BEDSIDE TESTING (test code = 92 mg/dL 70-110 N GLUBED) GLUCOSE BEDSIDE [id number] 08:05:00 Test Item Value Reference Range Interpretation Comments GLUCOSE BEDSIDE TESTING (test code = 62 mg/dL 70-110 L GLUBED) GLUCOSE BEDSIDE [id number] 20:40:00 Test Item Value Reference Range Interpretation Comments GLUCOSE BEDSIDE TESTING (test code 105 mg/dL 70-110 N = GLUBED) GLUCOSE BEDSIDE [id number] 17:02:00 Test Item Value Reference Range Interpretation Comments GLUCOSE BEDSIDE TESTING (test code 128 mg/dL 70-110 H = GLUBED) GLUCOSE BEDSIDE [id number] 16:37:00 Test Item Value Reference Range Interpretation Comments GLUCOSE BEDSIDE TESTING (test code 105 mg/dL 70-110 N = GLUBED) GLUCOSE BEDSIDE [id number] 08:17:00 Test Item Value Reference Range Interpretation Comments GLUCOSE BEDSIDE TESTING (test code = 88 mg/dL 70-110 N GLUBED) GLUCOSE BEDSIDE [id number] 19:45:00 Test Item Value Reference Range Interpretation Comments GLUCOSE BEDSIDE TESTING (test code 115 mg/dL 70-110 H = GLUBED) GLUCOSE BEDSIDE [id number] 18:13:00 Test Item Value Reference Range Interpretation Comments GLUCOSE BEDSIDE TESTING (test code = 74 mg/dL 70-110 N GLUBED) GLUCOSE BEDSIDE [id number] 17:29:00 Test Item Value Reference Range Interpretation Comments GLUCOSE BEDSIDE TESTING (test code = 44 mg/dL 70-110 LL GLUBED) GLUCOSE BEDSIDE [id number] 12:26:00 Test Item Value Reference Range Interpretation Comments GLUCOSE BEDSIDE TESTING (test code = 96 mg/dL 70-110 N GLUBED) GLUCOSE BEDSIDE [id number] 08:21:00 Test Item Value Reference Range Interpretation Comments GLUCOSE BEDSIDE TESTING (test code = 77 mg/dL 70-110 N GLUBED) GLUCOSE BEDSIDE [id number] 20:12:00 Test Item Value Reference Range Interpretation Comments GLUCOSE BEDSIDE TESTING (test code = 91 mg/dL 70-110 N GLUBED) GLUCOSE BEDSIDE [id number] 16:42:00 Test Item Value Reference Range Interpretation Comments GLUCOSE BEDSIDE TESTING (test code 106 mg/dL 70-110 N = GLUBED) GLUCOSE BEDSIDE [id number] 11:49:00 Test Item Value Reference Range Interpretation Comments GLUCOSE BEDSIDE TESTING (test code = 89 mg/dL 70-110 N GLUBED) GLUCOSE BEDSIDE [id number] 08:22:00 Test Item Value Reference Range Interpretation Comments GLUCOSE BEDSIDE TESTING (test code = 68 mg/dL 70-110 L GLUBED) GLUCOSE BEDSIDE [id number] 20:05:00 Test Item Value Reference Range Interpretation Comments GLUCOSE BEDSIDE TESTING (test code 137 mg/dL 70-110 H = GLUBED) GLUCOSE BEDSIDE [id number] 16:42:00 Test Item Value Reference Range Interpretation Comments GLUCOSE BEDSIDE TESTING (test code = 98 mg/dL 70-110 N GLUBED) GLUCOSE BEDSIDE [id number] 11:13:00 Test Item Value Reference Range Interpretation Comments GLUCOSE BEDSIDE TESTING (test code 118 mg/dL 70-110 H = GLUBED) GLUCOSE BEDSIDE [id number] 07:37:00 Test Item Value Reference Range Interpretation Comments GLUCOSE BEDSIDE TESTING (test code 140 mg/dL 70-110 H = GLUBED) COMPREHENSIVE METABOLIC [id number] 06:34:00 Test Item Value Reference Range Interpretation [...] TOTAL (test code = ALKP) CBC W/AUTO [id number] 06:25:00 Test Item Value Reference Range Interpretation [...] DIFF/SCN CRITERIA = MDIFF) - CT ABDOMEN [id number]/[id number] 03:09:00 [facility] 1960 Sex: M Name: FAITH VANCE [facility] : 1960 Age/S: 60 / M [address] Unit #: [id number] Loc: [place] [address] Phys: Fede Carrera DO Acct: [id number] Dis Date: Status: ADM IN PHONE #:[phone] Exam Date: 10/31/20201919 FAX #: Reason: NAUSEA, VOMITING, DIARRHEA EXAMS: CPT: [id number] CT ABDOMEN W/CONTRAST 91278 EXAM: - CT ABDOMEN W/CONTRAST LOCATION: H61 [...] VANCE : 1960 Age/S: 60 / M [address] Unit #: [id number] Loc: [place] [address] Phys: Fede Horan DO Acct: [id number] Dis Date: Status: ADM IN PHONE #: [phone] Exam Date: 10/31/20201919 FAX #: Reason: NAUSEA, VOMITING, DIARRHEA EXAMS: CPT: [id number] CT ABDOMEN W/CONTRAST 49715<Continued> small bowel wall thickening. The appendix is [...] CC: Nika Martin MD; Fede Carrera DO Technologist:Cecelia Arias RT(R) CTDI: DLP: Trnscb Date/Time: 11/01/2020 (308) t.KATHRYNR.TH15 Orig Print D/T: S: 11/01/2020 (311) PAGE 2Signed ReportGLUCOSE BEDSIDE [id number] 21:34:00 Test Item Value Reference Range Interpretation Comments GLUCOSE BEDSIDE TESTING (test code 161 mg/dL 70-110 H = GLUBED) GLUCOSE BEDSIDE [id number] 17:32:00 Test Item Value Reference Range Interpretation Comments GLUCOSE BEDSIDE TESTING (test code 136 mg/dL 70-110 H = GLUBED) - XR ABDOMEN 1 [id number] 12:44:00 [facility] 1960 Sex: M Name: FAITH VANCE [facility] : 1960 Age/S: 60 / M [address] Unit #: [id number] Loc: [place] [address] Phys: Fede Carrera DO Acct: [id number] Dis Date: Status: ADM IN PHONE #: [phone] Exam Date: 10/31/2020 1227 FAX #: Reason: Abdominal pain in the lower qudarants EXAMS: CP T: [id number] XR ABDOMEN 1 V 90985 Fluoro Time: DAP (Gy m2): Air Kerma [...] DO PAGE1 Signed Report Name: FAITH VANCE [facility] : 1960 Age/S: 60 / M [address] Unit #: [id number] Loc: [place] [address] Phys: Fede Carrera DO Acct: [id number] Dis Date: Status: ADM IN PHONE #: [phone] Exam Date: 10/31/2020 1227 FAX #: Reason: Abdominal pain in the lower qudarants EXAMS: CPT: [id number] XR ABDOMEN 1 V 18279 Fluoro Time: DAP (Gy m2): Air Kerma (mGy): &lt ;Continued> Technologist: Cecelia Arias RT(R) Trnscb Date/Time: 10/31/2020 (3637) Lorena OrigPrint D/T: S: 10/31/2020 (7005) PAGE 2 Signed Report GLUCOSE BEDSIDE [id number] 11:58:00 Test Item Value Reference Range Interpretation Comments GLUCOSE BEDSIDE TESTING (test code 105 mg/dL 70-110 N = GLUBED) GLUCOSE BEDSIDE [id number] 08:01:00 Test Item Value Reference Range Interpretation Comments GLUCOSE BEDSIDE TESTING (test code 106 mg/dL 70-110 N = GLUBED) [id number] 22:46:00 Test Item Value Reference Range Interpretation [...] yby method. Completed by Nursing: NOGLUCOSE BEDSIDE [id number] 21:55:00 Test Item Value Reference Range Interpretation Comments GLUCOSE BEDSIDE TESTING (test code 119 mg/dL 70-110 H = GLUBED) [id number] 19:33:00 Test Item Value Reference Range Interpretation [...] method. Completed by Nursing: NOCoronavirus 2019 nCoV [id number] 18:46:00 Test Item Value Reference Range Interpretation Comments Coronavirus 2019 nCoV Negative Negative Per arnie nufacturer, Bedside (test code = negativ e results should [id number]) be treated aspresumptive a nd, if inconsistent [...] with COVID-19. Spec Comments: NNT PRO-BRAIN NATRIURETIC [id number] 15:51:00 Test Item Value Reference Range Interpretation Comments NT PRO-BRAIN NATRIURETIC PEPTI 6079 PG/ML 0-100 H (test code = PROBNP) Completed by Nursing: [id number] 15:51:00 Test Item Value Reference Range Interpretation [...] yby method. Completed by Nursing: NOBASIC METABOLIC [id number] 15:51:00 Test Item Value Reference Range Interpretation [...] Completed by Nursing: NO- XR CHEST 1 [id number] 15:42:00 [facility] 1960 Sex: M Name: FAITH VANCE [facility] : 1960 Age/S: 60 / M [address] Unit #: [id number] Loc: [place] [address] Phys: Todd Jacobo MD Acct: [id number] Dis Date: Status: PRE ER PHONE #: [phone] Exam Date: 10/30/2020 1524 FAX #: Reason: chest pain EXAMS: CPT: [id number] XR CHEST 1V 21587 Fluoro Time: DAP (Gy m2): Air Kerma [...] PAGE 1 Signed Report Name: FAITH VANCE [facility] : 1960 Age/S: 60 / M [address] [place] [address] Unit #: [id number] Loc: [place] [address] Phys: Todd Jacobo MD Acct: [id number] Date: Status: PRE ER PHONE #: [phone] Exam Date: 10/30/2020 1524 FAX #: Reason: chest painEXAMS: CPT: [id number] XR CHEST 1 V 18354 Fluoro Time: DAP (Gy m2): Air Kerma (mGy): <Continued> Technologist: Kim Andrews, RT(R)(CT) Trnscb Date/Time: 10/30/2020 (1542) tMATTR.RB24 Orig Print D/T: S: 10/30/2020 (7736) PAGE 2 Signed ReportCBC W/O [id number] 15:31:00 Test Item Value Reference Range Interpretation [...] 9.70 fL 7.0-9.6 H MPV) BASIC METABOLIC [id number] 21:42:00 Test Item Value Reference Range Interpretation [...] 9.6 mg/dL 8.0-10.5 N CA) HEPATIC FUNCTION [id number] 21:42:00 Test Item Value Reference Range Interpretation [...] 114 IUnit/L 20-125 N code = ALKP) [id number] 21:42:00 Test Item Value Reference Range Interpretation Comments LIPASE (test code = LIP) 70 U/L 13-57 H [id number] 21:42:00 Test Item Value Reference Range Interpretation [...] by method. UA RFLX MICR CULT IF [id number] 21:37:00 Test Item Value Reference Range Interpretation [...] INDWELLING CATH (CEDENO)Cath Status: Under 72 hoursPROTHROMBIN [id number] 21:35:00 Test Item Value Reference Range Interpretation [...] (to prevent recurrent infar ct). THROMBOPLASTIN TIME [id number] 21:35:00 Test Item Value Reference Range Interpretation Comments THROMBOPLASTIN TIME 41.7 Seconds 25.0-39.5 H Therape utic Range: PARTIAL (test code = 50.4 - 88.3 Seconds PTT) Effective 09/04/2018 CBC W/AUTO [id number] 21:29:00 Test Item Value Reference Range Interpretation [...] = MDIFF) - CT ABD PELVIS W/O [id number] 20:49:00 [facility] : 1960 Sex: M Name: FAITH VANCE [facility] [place] : 1960 Age/S: 60 / M [address] [place] [address] Bl Unit #: [id number] Loc: [place] [address] Phys: Gisel Eugene Supriya TRAY DELIVERY AIDE Acct: [id number] Dis Date: Status: REG ER PHONE #: [phone] Exam Date: 08/23/20202024 FAX #: [phone] Reason: DIFFUSE ABDOMINAL PAIN EXAMS: CPT CODE: [id number] CT ABD PELVIS W/O CONT 40269 Clinical indication: Diffuse abdominal pain. Contrast - [...] PAGE 1 Signed Report (CONTINUED)Name: FAITH VANCE [facility] Jonn Mejia : 1960 Age/S: 60 / M [address] [place] [address] Unit #: [id number] Loc: [place] [address] Phys: Gisel Eugene Acct: [id number] Dis Date: Status: REG ER PHONE #: [phone] Exam Date: 08/23/20202024 FAX #: [phone] Reason: DIFFUSE ABDOMINAL PAIN EXAMS: CPT CODE: [id number] CT ABD PELVIS W/O CONT 41775 <Continued> Peritoneum/Other: No extraluminal air. No extraluminal fluid. IMPRESSION: 1. No acute process in the abdomen and pelvis. 2. Hepatic steatosis. 3. Cholecystectomy. Mild prominence of the proximal common bile duct likely due to increased capacitance. 4. 2.3 x 2.2 cm simple right interpolar renal cyst. Tiny nonobstructive leftrenal calculus. No hydronephrosis. 5. Normal appendix. 6. Posterior instrumented fusion from L4 through L5 levels. 7. Small left pleural effusion. at 2048 Reported and signed by: Irene Katz M.D. CC: Alf Hope DO; Nika Martin MD; Gisel Eugene Technologist:RT Fanta(R)(CT) CTDI: DLP: Trnscb Date/Time: 08/23/2020 (2048) t.KATHRYNR.VB9 Orig Print D/T: S: 08/23/2020 (2051) PAGE 2 Signed ReportBASIC METABOLIC [id number] 07:51:00 Test Item Value Reference Range Interpretation [...] >3 months. [Automated mess age] The system [employer] generated this result transmitted ref erence range: >=60. Th e reference range was not used to int erpret this result as normal/abnormal . CREATININE (test 1.20 mg/dL 0.7-1.3 N code = CREAT) BUN/CREATININE RATIO 22.1 10-20 H (test code = BUN/CREA) CALCIUM (test code = 8.6 mg/dL 8.5-10.1 N CA) [id number] 16:58:00 Test Item Value Reference Range Interpretation Comments GLUBED (test code = 159 MG/DL 70-110 H Performe d by certified GLUBED) four roll calender operator at [facility] [id number] 11:58:00 Test Item Value Reference Range Interpretation Comments GLUBED (test code = 149 MG/DL 70-110 H Performe d by certified GLUBED) four roll calender operator at [facility] BASIC METABOLIC [id number] 08:00:00 Test Item Value Reference Range Interpretation [...] 9.9 mg/dL 8.0-10.5 N CA) CBC W/AUTO [id number] 07:08:00 Test Item Value Reference Range Interpretation [...] DIFF REQUIRED (test code NO = MDIFF) [id number] 05:21:00 Test Item Value Reference Range Interpretation Comments GLUBED (test code = 150 MG/DL 70-110 H Performe d by certified GLUBED) four roll calender operator at [facility] [id number] 21:13:00 Test Item Value Reference Range Interpretation Comments GLUBED (test code = 129 MG/DL 70-110 H Performe d by certified GLUBED) four roll calender operator at [facility] [id number] 16:48:00 Test Item Value Reference Range Interpretation Comments GLUBED (test code = 116 MG/DL 70-110 H Performe d by certified GLUBED) four roll calender operator at [facility] [id number] 12:18:00 Test Item Value Reference Range Interpretation Comments GLUBED (test code = 136 MG/DL 70-110 H Performe d by certified GLUBED) four roll calender operator at [facility] [id number] 12:18:00 Test Item Value Reference Range Interpretation Comments GLUBED (test code = 151 MG/DL 70-110 H Performe d by certified GLUBED) four roll calender operator at [facility] CBC W/AUTO [id number] 07:32:00 Test Item Value Reference Range Interpretation [...] (test code NO = MDIFF) BASIC METABOLIC [id number] 07:29:00 Test Item Value Reference Range Interpretation [...] code = 9.0 mg/dL 8.0-10.5 N CA) [id number] 05:19:00 Test Item Value Reference Range Interpretation Comments GLUBED (test code = 135 MG/DL 70-110 H Performe d by certified GLUBED) four roll calender operator at [facility] [id number] 20:31:00 Test Item Value Reference Range Interpretation Comments GLUBED (test code = 189 MG/DL 70-110 H Performe d by certified GLUBED) four roll calender operator at [facility] [id number] 17:41:00 Test Item Value Reference Range Interpretation Comments GLUBED (test code = 140 MG/DL 70-110 H Performe d by certified GLUBED) four roll calender operator at [facility] - CTA CHEST FOR [id number] 13:48:00 [facility] 1960 Sex: M Name: FAITH VANCE [facility] : 1960 Age/S: 60 / M [address] [place] [address] Unit #: [id number] Loc: [place] [address] Phys: Gina Gonzalez YAYA Acct: [id number] Dis Date: Status: ADM IN PHONE #: [phone] Exam Date: 08/12/2020 0912 FAX #: [phone] Reason: CP, elevated D-dimer EXAMS: CPT CODE: [id number] [place] [address] PROCEDURE: CTA CHEST INDICATION: CP, elevated D-dimer; chest pain; rule out PE COMPARISON: CXR 08/10/2020, CT chest 06/24/2017 TECHNIQUE: CTA of the pulmonary arteries was performed with intravenous contrast. Helical imaging performed apices to the lungbases. Multiplanar and 3-D MIP angiographic reconstructions were [...] 1 Signed Report (CONTINUED) Name: FAITH VANCE [facility] : 1960 Age/S: 60 / M [address] [place] [address] Unit #: [id number] Loc: [place] [address] Phys: Gina Gonzalez NP Acct: [id number] Dis Date: Status: ADM IN PHONE #: [phone] Exam Date: 08/12/2020911 FAX #: [phone] Reason: CP, elevated D-dimer EXAMS: CPT CODE: [id number] [place] [address] <Continued> contrastenhancement. No acute abnormality demonstrated. MUSCULOSKELETAL: Healed median sternotomy. No acuteskeletal abnormality. IMPRESSION: 1. Negative for pulmonary embolic disease within limitations noted. 2. Atherosclerosis. 3. Coronary arterial calcifications with prior coronary arterial stents and CABG. 4. Interstitial edema. No consolidation. 5. Small bilateral pleural effusions. SL: [id number] at 1348 Reported and signed by: Christiano Piña M.D. CC: Johnie Montanez MD; Gina Gonzalez NP; Nika Martin MD Tech nologist:Kate Camacho, RT(R)(CT) CTDI: DLP: Trnscb Date/Time: 08/12/2020 (1348) tOBINNA Orig Print D/T: S: 08/12/2020 (1999) PAGE 2 Signed ReportGLUBED 2020-08-12 11:38:00 Test Item Value Reference Range Interpretation Comments GLUBED (test code = 146 MG/DL 70-110 H Performe d by certified GLUBED) four roll calender operator at [facility] CBC W/AUTO [id number] 09:17:00 Test Item Value Reference Range Interpretation [...] (test code NO = MDIFF) BASIC METABOLIC [id number] 08:28:00 Test Item Value Reference Range Interpretation [...] code = 8.3 mg/dL 8.0-10.5 N CA) [id number] 08:28:00 Test Item Value Reference Range Interpretation Comments PHOSPHOROUS (test code = PHOS) 3.6 MG/DL 2.5-4.9 N [id number] 08:28:00 Test Item Value Reference Range Interpretation Comments MAGNESIUM (test code = MAG) 1.94 mg/dL 1.80-2.40 N [id number] 07:16:00 Test Item Value Reference Range Interpretation Comments GLUBED (test code = 170 MG/DL 70-110 H Performe d by certified GLUBED) four roll calender operator at [facility] [id number] 07:16:00 Test Item Value Reference Range Interpretation Comments GLUBED (test code = 137 MG/DL 70-110 H Performe d by certified GLUBED) four roll calender operator at [facility] [id number] 17:01:00 Test Item Value Reference Range Interpretation Comments GLUBED (test code = 88 MG/DL 70-110 N Performe d by certified GLUBED) four roll calender operator at [facility] [id number]-[id number] 16:56:00 Test Item Value Reference Range Interpretation Comments ACT-ISTAT (test code 186 SEC 74-137 H Perform ed by certified = ACTI) four roll calender operator at [facility] [id number]-[id number] 15:03:00 Test Item Value Reference Range Interpretation Comments ACT-ISTAT (test code 235 SEC 74-137 H Perform ed by certified = ACTI) four roll calender operator at [facility] [id number] 11:33:00 Test Item Value Reference Range Interpretation Comments GLUBED (test code = 97 MG/DL 70-110 N Performe d by certified GLUBED) four roll calender operator at [facility] [id number] 06:54:00 Test Item Value Reference Range Interpretation Comments GLUBED (test code = 136 MG/DL 70-110 H Performe d by certified GLUBED) four roll calender operator at [facility] BASIC METABOLIC [id number] 06:00:00 Test Item Value Reference Range Interpretation [...] COMMENTS: To be done morning of Heart EgaoFYWHWRPJSLZ9735-02-99 06:00:00 Test Item Value Reference Range Interpretation Comments PHOSPHOROUS (test code = PHOS) 4.1 MG/DL 2.5-4.9 N COMMENTS: To be done morning of Heart PcmhYVEJJFFBW5859-65-98 06:00:00 Test Item Value Reference Range Interpretation Comments MAGNESIUM (test code = MAG) 1.74 mg/dL 1.80-2.40 L COMMENTS: To be done morning of Heart CathTHROMBOPLASTIN TIME [id number] 05:55:00 Test Item Value Reference Range Interpretation Comments THROMBOPLASTIN TIME 37.9 Seconds 25.0-39.5 N Therape utic Range: PARTIAL (test code = 50.4 - 88.3 Seconds PTT) Effective 09/04/2018 CBC W/AUTO [id number] 05:44:00 Test Item Value Reference Range Interpretation [...] COMMENTS: To be done morning of Heart ZmftFOTMZL5207-55-44 05:44:00 Test Item Value Reference Range Interpretation Comments GLUBED (test code = 92 MG/DL 70-110 N Performe d by certified GLUBED) four roll calender operator at [facility] HGBA1C%2020-08-10 17:22:00 Test Item Value Reference Range Interpretation Comments HGBA1C% (test code = HGBA1C%) 6.6 %A1C 4.8-6.0 H [id number] 17:17:00 Test Item Value Reference Range Interpretation Comments GLUBED (test code = 118 MG/DL 70-110 H Performe d by certified GLUBED) four roll calender operator at [facility] TSH REFLEX TO [id number] 15:37:00 Test Item Value Reference Range Interpretation Comments TSH REFLEX TO FT4 (test code = 3.19 IU/mL 0.42-5.47 N TSHREFLEX) [id number] 15:37:00 Test Item Value Reference Range Interpretation [...] y by method. COVID 19 Asymptomatic IH [id number] 11:35:00 Test Item Value Reference Range Interpretation [...] y tests. COMMENTS: If not done this udlajdfkvMGDTDNMU-[id number] 11:31:00 Test Item Value Reference Range Interpretation [...] titative results may babak y by method. [id number] 11:28:00 Test Item Value Reference Range Interpretation Comments D-DIMER (test 1089 ng/mlFEU See_Comment HH Critical resu lt called to code = ALYX RUSSELL, Rima DDIMER) G.LAB.JJ1 at 04 1808/10/20Nurse r [...] to interpret this result as normal/abnormal . [id number] 10:48:00 Test Item Value Reference Range Interpretation Comments GLUBED (test code = 158 MG/DL 70-110 H Performe d by certified GLUBED) four roll calender operator at [facility] B-TYPE NATRIURETIC [id number] 08:19:00 Test Item Value Reference Range Interpretation Comments B-TYPE NATRIURETIC PEPTIDE (test 508.0 PG/ML 0-100 H code = BNP) BASIC METABOLIC [id number] 08:11:00 Test Item Value Reference Range Interpretation [...] 9.1 mg/dL 8.0-10.5 N CA) HEPATIC FUNCTION [id number] 08:11:00 Test Item Value Reference Range Interpretation [...] 174 IUnit/L 20-125 H code = ALKP) [id number] 08:11:00 Test Item Value Reference Range Interpretation Comments MAGNESIUM (test code = MAG) 1.80 mg/dL 1.80-2.40 N [id number] 08:11:00 Test Item Value Reference Range Interpretation [...] may babak y by method. BASIC METABOLIC [id number] 08:09:00 Test Item Value Reference Range Interpretation [...] code = CA) mg/dL 8.0-10.5 HEPATIC FUNCTION [id number] 08:09:00 Test Item Value Reference Range Interpretation Comments TOTAL PROTEIN (test code = PROT) g/dL 6.4-8.2 ALBUMIN (test code = ALB) g/dL 3.4-5.0 BILIRUBIN TOTAL (test code = BILT) mg/dL 0.0-1.0 BILIRUBIN DIRECT (test code = BILD) MG/DL 0.0-0.30 SGOT/AST (test code = AST) IUnit/L 15-37 SGPT/ALT (test code = ALT) IUnit/L 30-65 ALKALINE PHOSPHATASE TOTAL (test IUnit/L 20-125 code = ALKP) [id number] 08:09:00 Test Item Value Reference Range Interpretation Comments MAGNESIUM (test code = MAG) mg/dL 1.80-2.40 [id number] 08:09:00 Test Item Value Reference Range Interpretation [...] results may babak y by method. PROTHROMBIN [id number] 08:06:00 Test Item Value Reference Range Interpretation [...] (to prevent recurrent infar ct). THROMBOPLASTIN TIME [id number] 08:06:00 Test Item Value Reference Range Interpretation Comments THROMBOPLASTIN TIME 44.5 Seconds 25.0-39.5 H Therape utic Range: PARTIAL (test code = 50.4 - 88.3 Seconds PTT) Effective 09/04/2018 CBC W/AUTO [id number] 07:58:00 Test Item Value Reference Range Interpretation [...] MANUAL DIFF REQUIRED (test code NO = TANYA) - XR CHEST 1 [id number] 07:57:00 [facility] : 1960 Sex: M FAX: Todd Jacobo MD [phone] [place]: St: REG FAX: Martínez Dash NP [phone] Name: RAJIVFAITH [facility] : 1960 Age/S: 60/M [address] [place] [address] Unit #: [id number] Loc: [place] [address] Phys: Martínez Dash NP Acct: [id number] Dis Date: Status: REG ER PHONE #: [phone] Exam Date: 08/10/2020 0753 FAX #: [phone] Reason: Chest Pain EXAMS: CPT CODE: [id number] XR CHEST 1 V 04127 Chest single view 08/10/2020 HISTORY: Chest pain. Comparison is made to 05/21/2018 FINDINGS: Pacemaker and midline sternotomy wires are stable. The lungs are hypoinflated. No consolidation or pleural effusion is present. No vascular congestion or interstitial edema is present. Heart size is mildly enlarged. Aorta is unchanged. IMPRESSION: Hypoinflated lungs. No acute cardiopulmonary process. [id number] at 0757 Reported and signed by: Khai Kruse M.D. CC: Todd Jacobo MD; Martínez Dash NP Technologist: RT Ann(R) Trnscrd Date/Time/By: 08/10/2020 (0757) : By: t.[email or web address] [email or web address] Orig Print D/T: S: 08/10/2020 (08) PAGE 1 Signed Report COMPREHENSIVE METABOLIC [id number] 18:02:00 Test Item Value Reference Range Interpretation [...] 50-136 H TOTAL (test code = ALKP) [id number] 18:02:00 Test Item Value Reference Range Interpretation Comments AMYLASE (test code = SERGIO) 82 Unit/L 25-115 N [id number] 18:02:00 Test Item Value Reference Range Interpretation Comments LIPASE (test code = LIP) 185 Unit/L 114-286 N COMPREHENSIVE METABOLIC [id number] 17:56:00 Test Item Value Reference Range Interpretation [...] TOTAL Unit/L 50-136 (test code = ALKP) [id number] 17:56:00 Test Item Value Reference Range Interpretation Comments AMYLASE (test code = SERGIO) Unit/L 25-115 [id number] 17:56:00 Test Item Value Reference Range Interpretation Comments LIPASE (test code = LIP) 185 Unit/L 114-286 N CBC W/AUTO [id number] 17:46:00 Test Item Value Reference Range Interpretation [...] CRITERIA MDIFF) - CT ABD PELVIS W/O [id number] 17:46:00 Name: FAITH VANCE [facility] : 1960 Age/S: 58 / M [address] Unit #: [id number] Loc: [place] [address] Phys: Nila Chester MD Acct: [id number] Dis Date: Status: REG ER PHONE #: [phone] Exam Date: 01/03/2019 1736 FAX #: Reason: llq EXAMS: CPT: [id number] CT ABDPELVIS W/O CONT 87262 Location of dictation: B2 CT abdomen and [...] [facility] Cristofer : 1960 Age/S: 58 / M [address] Unit #: [id number] Loc: [place] [address] Phys: Nila Chester MD Acct: [id number] Dis Date: Status: REG ER PHONE #: [phone] Exam Date: 01/03/2019 173 FAX #: Reason: llq EXAMS: CPT: [id number] CT ABD PELVIS W/O CONT 69862 <Continued> at 1746 Reported and signed by: Renuka Willett M.D. CC: Nila Chester MD Technologist:Tavon Jurado, RT(R)(CT)(MRI) CTDI: DLP: Trnscb Date/Time: 01/03/2019 (2153) [email or web address] Orig Print D/T: S: 01/03/2019 (6987) PAGE 2 Signed ReportBedside [id number] 11:47:00 Test Item Value Reference Range Interpretation Comments Bedside Glucose (test code = 08181-5) 155 70-120 H Meter ID: [id number] Health Presbyterian Dallasodium [id number] 08:31:00 Test Item Value Reference Range Interpretation Comments Sodium Level (test code = 2951-2) 139 136-145 [facility] [id number] 08:31:00 Test Item Value Reference Range Interpretation Comments Potassium Level (test code = 2823-3) 4.0 3.5-5.1 [facility] TexasChloride Ejcwn0848-39-66 08:31:00 Test Item Value Reference Range Interpretation Comments Chloride Level (test code = 2075-0) 106 98-107 [facility] TexasCarbon Dioxide Ggpmh2483-35-94 08:31:00 Test Item Value Reference Range Interpretation Comments Carbon Dioxide Level (test code = 25 22-29 8-9) [facility] TexasAnion [id number] 08:31:00 Test Item Value Reference Range Interpretation Comments Anion Gap (test code = 09943-6) 12.0 8-16 [facility] TexasBlood Urea Lzgkivrz2193-38-17 08:31:00 Test Item Value Reference Range Interpretation Comments Blood Urea Nitrogen (test code = 7 12-14 3094-0) [facility] TexasCreatinine2018-06-08 08:31:00 Test Item Value Reference Range Interpretation Comments Creatinine (test code = 2160-0) 0.72 0.72-1.25 [facility] TexasBUN/Creatinine Qkiva3650-39-97 08:31:00 Test Item Value Reference Range Interpretation Comments BUN/Creatinine Ratio (test code = 10 6-25 3097-3) [facility] TexasEstimat Glomerular Filtration [id number] 08:31:00 Test Item Value Reference Range Interpretation Comments Estimat Glomerular Filtration Rate 60- >60 (test code = 26006-3) Ranges were taken from the National Kidney Disease Education Program and the National Kidney Foundation literature.Reference ranges:60 or greater: Lrjlgy69- 59 (for 3 consecutive months): Chronic kidneydisease 15 or less: Kidney failure [facility] TexasGlucose Qkpbo0630-01-93 08:31:00 Test Item Value Reference Range Interpretation Comments Glucose Level (test code = WZU9863) 195 74-118 H [facility] TexasCalcium Boutz7994-42-78 08:31:00 Test Item Value Reference Range Interpretation Comments Calcium Level (test code = 19279-0) 9.0 8.4-10.2 [facility] TexasWhite Blood [id number] 08:12:00 Test Item Value Reference Range Interpretation Comments White Blood Count (test code = 6690-2) 6.06 4.8-10.8 [facility] TexasRed Blood [id number] 08:12:00 Test Item Value Reference Range Interpretation Comments Red Blood Count (test code = 789-8) 4.22 4.3-5.7 L [facility] TexasHemoglobin2018-06-08 08:12:00 Test Item Value Reference Range Interpretation Comments Hemoglobin (test code = 72531-9) 12.5 14.0-18.0 L [facility] TexasHematocrit2018-06-08 08:12:00 Test Item Value Reference Range Interpretation Comments Hematocrit (test code = 4544-3) 36.2 38.2-49.6 L [facility] TexasMean Corpuscular Rriytm4503-49-82 08:12:00 Test Item Value Reference Range Interpretation Comments Mean Corpuscular Volume (test code = 85.8 81-99 787-2) [facility] TexasMean Corpuscular Sjkxbdrjbx8742-00-63 08:12:00 Test Item Value Reference Range Interpretation Comments Mean Corpuscular Hemoglobin (test code 29.6 28-32 = 785-6) [facility] TexasMean Corpuscular Hemoglobin Eucnpkm6759-80-99 08:12:00 Test Item Value Reference Range Interpretation Comments Mean Corpuscular Hemoglobin Concent 34.5 31-35 (test code = 786-4) [facility] TexasRed Cell Distribution Jgjpw3843-08-66 08:12:00 Test Item Value Reference Range Interpretation Comments Red Cell Distribution Width (test code 14.2 11.7-14.4 = 68128-7) [facility] TexasPlatelet Crcyu6669-26-27 08:12:00 Test Item Value Reference Range Interpretation Comments Platelet Count (test code = 777-3) 263 140-360 [facility] TexasNeutrophils (%) (Auto)2017-10-27 08:12:00 Test Item Value Reference Range Interpretation Comments Neutrophils (%) (Auto) (test code = 51.2 38.7-80.0 84276-7) [facility] TexasLymphocytes (%) (Auto)2017-10-27 08:12:00 Test Item Value Reference Range Interpretation Comments Lymphocytes (%) (Auto) (test code = 33.7 18.0-39.1 736-9) [facility] TexasMonocytes (%) (Auto)2017-10-27 08:12:00 Test Item Value Reference Range Interpretation Comments Monocytes (%) (Auto) (test code = 9.1 4.4-11.3 5905-5) [facility] TexasEosinophils (%) (Auto)2017-10-27 08:12:00 Test Item Value Reference Range Interpretation Comments Eosinophils (%) (Auto) (test code = 4.8 0.0-6.0 713-8) [facility] TexasBasophils (%) (Auto)2017-10-27 08:12:00 Test Item Value Reference Range Interpretation Comments Basophils (%) (Auto) (test code = 0.7 0.0-1.0 706-2) [facility] TexasIM GRANULOCYTES %2017-10-27 08:12:00 Test Item Value Reference Range Interpretation Comments IM GRANULOCYTES % (test code = IM 0.5 0.0-1.0 GRANULOCYTES %) [facility] TexasNeutrophils # (Auto)2017-10-27 08:12:00 Test Item Value Reference Range Interpretation Comments Neutrophils # (Auto) (test code = 3.1 2.1-6.9 751-8) [facility] TexasLymphocytes # (Auto)2017-10-27 08:12:00 Test Item Value Reference Range Interpretation Comments Lymphocytes # (Auto) (test code = 2.0 1.0-3.2 23071-3) [facility] TexasMonocytes # (Auto)2017-10-27 08:12:00 Test Item Value Reference Range Interpretation Comments Monocytes # (Auto) (test code = 742-7) 0.6 0.2-0.8 [facility] TexasEosinophils # (Auto)2017-10-27 08:12:00 Test Item Value Reference Range Interpretation Comments Eosinophils # (Auto) (test code = 0.3 0.0-0.4 711-2) [facility] TexasBasophils # (Auto)2017-10-27 08:12:00 Test Item Value Reference Range Interpretation Comments Basophils # (Auto) (test code = 704-7) 0.0 0.0-0.1 [facility] TexasAbsolute Immature Granulocyte (lgmv9833-60-08 08:12:00 Test Item Value Reference Range Interpretation Comments Absolute Immature Granulocyte (auto 0.03 0-0.1 (test code = Absolute Immature Granulocyte (auto) [facility] TexasCreatine Kinase [id number] 15:14:00 Test Item Value Reference Range Interpretation Comments Creatine Kinase MB (test code = 3.90 0-5.0 33724-3) [facility] TexasTroponin [id number] 15:14:00 Test Item Value Reference Range Interpretation Comments Troponin I (test code = SMY7998) 0.054 0-0.300 [facility] TexasCreatine Jrvcpa0072-22-34 15:07:00 Test Item Value Reference Range Interpretation Comments Creatine Kinase (test code = 2157-6) 297 30-200 H [facility] TexasHemoglobin A1c Olzgndp5649-94-12 08:04:00 Test Item Value Reference Range Interpretation Comments Hemoglobin A1c Percent (test code = 12.6 4.0-7.0 H Hemoglobin A1c Percent) [facility] TexasTriglycerides Ilrwh8509-49-07 06:57:00 Test Item Value Reference Range Interpretation Comments Triglycerides Level (test code = 200 0-149 H 2571-8) [facility] TexasCholesterol Itrlm9793-33-71 06:57:00 Test Item Value Reference Range Interpretation Comments Cholesterol Level (test code = 2093-3) 239 0-199 H Less than 200 mg/dL Low Oznm875 - 239 mg/dL Borderline Vcsc692 mg/dl and greater High RiskAdventHealth Central TexasLDL Xxydllcfujv2511-24-99 06:57:00 Test Item Value Reference Range Interpretation Comments LDL Cholesterol (test code = 2089-1) 164 60-130 H [facility] TexasHDL Lwokbizphxq8163-25-97 06:57:00 Test Item Value Reference Range Interpretation Comments HDL Cholesterol (test code = 2085-9) 35 40-60 L [facility] TexasCholesterol/HDL Mqfhx8470-69-34 06:57:00 Test Item Value Reference Range Interpretation Comments Cholesterol/HDL Ratio (test code = 6.8 3.9-4.7 H 9830-1) [facility] TexasUrine Cocaine Duqtmi9307-01-67 16:18:00 Test Item Value Reference Range Interpretation Comments Urine Cocaine Screen (test code = NEGATIVE NEGATIVE 3398-5) [facility] TexasUrine Cannabinoids Iqbbak4372-60-18 16:18:00 Test Item Value Reference Range Interpretation Comments Urine Cannabinoids Screen (test code NEGATIVE NEGATIVE = 79984-1) THESE RESULTS ARE FOR MEDICAL TREATMENT ONLYTHIS REPORT CONTAINS UNCONFIRMED SCREENING RESULTS*POSITIVE RESULTS WILL BE CONFIRMED BY REFERENCE LAB UPON REQUEST CUT-OFFDRUG CLASS CONCENTRATION ng/mLAmphetamines 1000Methamphetamines 1000Cocaine 300Opiate 300Phencyclidine 25Cannabinoid 50Barbiturates 300Benzodiazepine 300Methadone 300[facility] TexasUrine Methadone Rkmujv8326-62-57 16:18:00 Test Item Value Reference Range Interpretation Comments Urine Methadone Screen (test code = NEGATIVE NEGATIVE 43445-0) THESE RESULTS ARE FOR MEDICAL TREATMENT ONLYTHIS REPORT CONTAINS UNCONFIRMED SCREENING RESULTS*POSITIVE RESULTS WILL BE CONFIRMED BY REFERENCE LAB UPON REQUEST CUT-OFFDRUG CLASS CONCENTRATION ng/mLAmphetamines 1000Methamphetamines 1000Cocaine Metabolite 300Opiate 300Phencyclidine 21Wowqktwnsdc03Iwkdfwjzikzj 300Benzodiazepine 300Methadone 300[facility] CenterUrine Opiates Uyphyo9458-49-36 16:18:00 Test Item Value Reference Range Interpretation Comments Urine Opiates Screen (test code = NEGATIVE NEGATIVE 32360-7) [facility] TexasUrine Barbiturates Cvxojy4918-69-08 16:18:00 Test Item Value Reference Range Interpretation Comments Urine Barbiturates Screen (test code NEGATIVE NEGATIVE = 670087158) [facility] TexasUrine Phencyclidine Jdtduh5544-62-18 16:18:00 Test Item Value Reference Range Interpretation Comments Urine Phencyclidine Screen (test NEGATIVE NEGATIVE code = 07667-2) [facility] TexasUrine Amphetamines Mlocpj6062-31-29 16:18:00 Test Item Value Reference Range Interpretation Comments Urine Amphetamines Screen (test code NEGATIVE NEGATIVE = 31026-4) [facility] TexasUrine Methamphetamines Wfdxkd7432-29-46 16:18:00 Test Item Value Reference Range Interpretation Comments Urine Methamphetamines Screen (test NEGATIVE NEGATIVE code = Urine Methamphetamines Screen) [facility] TexasUrine Benzodiazepines Fbwpib5374-87-55 16:18:00 Test Item Value Reference Range Interpretation Comments Urine Benzodiazepines Screen (test NEGATIVE NEGATIVE code = 86953-9) [facility] TexasProthrombin Iogh8680-25-60 14:13:00 Test Item Value Reference Range Interpretation Comments Prothrombin Time (test code = 5902-2) 13.6 11.9-14.5 [facility] TexasProthromb Time International Pkzui8193-57-18 14:13:00 Test Item Value Reference Range Interpretation Comments Prothromb Time International Ratio 1.13 (test code = 6301-6) Oral Anticoagulant Therapy INR Values:1. Low Intensity Therapy 1.5 - 2.02. Moderate Intensity Therapy 2.0 - 3.03. High Intensity Therapy(1) 2.5 - 3.54. High Intensity Therapy(2) 3.0 - 4.05. Panic ValueINR > 5.0[facility] TexasActivated Partial Thromboplast Hsvq0087-22-98 14:13:00 Test Item Value Reference Range Interpretation Comments Activated Partial Thromboplast Time 27.6 23.8-35.5 (test code = 34334-9) [facility] TexasTotal Pjrcirugz7088-19-95 14:10:00 Test Item Value Reference Range Interpretation Comments Total Bilirubin (test code = 1975-2) 0.6 0.2-1.2 [facility] TexasAspartate Amino Transf (AST/SGOT)2017-10-23 14:10:00 Test Item Value Reference Range Interpretation Comments Aspartate Amino Transf (AST/SGOT) (test 36 5-34 H code = Aspartate Amino Transf (AST/SGOT)) [facility] TexasAlanine Aminotransferase (ALT/SGPT)2017-10-23 14:10:00 Test Item Value Reference Range Interpretation Comments Alanine Aminotransferase (ALT/SGPT) 34 0-55 (test code = 1742-6) [facility] TexasTotal Tdvztth9476-81-80 14:10:00 Test Item Value Reference Range Interpretation Comments Total Protein (test code = 2885-2) 7.3 6.5-8.1 [facility] TexasAlbumin2018-06-04 14:10:00 Test Item Value Reference Range Interpretation Comments Albumin (test code = 1751-7) 4.0 3.5-5.0 [facility] TexasGlobulin2018-06-04 14:10:00 Test Item Value Reference Range Interpretation Comments Globulin (test code = 24621-2) 3.3 2.3-3.5 [facility] TexasAlbumin/Globulin Lpajo1749-84-86 14:10:00 Test Item Value Reference Range Interpretation Comments Albumin/Globulin Ratio (test code = 1.2 0.8-2.0 1759-0) [facility] TexasAlkaline Jrhuemkqxjj3528-41-85 14:10:00 Test Item Value Reference Range Interpretation Comments Alkaline Phosphatase (test code = 109 40-150 6768-6) [facility] TexasB-Type Natriuretic Vlgiqdz3782-71-41 14:10:00 Test Item Value Reference Range Interpretation Comments B-Type Natriuretic Peptide (test code = 92.8 0-100 43887-4) [facility] TexasAmylase Wxuty7909-41-48 14:10:00 Test Item Value Reference Range Interpretation Comments Amylase Level (test code = 1798-8) 126 25-125 H [facility] TexasLipase2018-06-04 14:10:00 Test Item Value Reference Range Interpretation Comments Lipase (test code = 3040-3) 98 8-78 H [facility] TexasD-Dimer Quantitative (PE/DVT)2017-10-23 14:02:00 Test Item Value Reference Range Interpretation Comments D-Dimer Quantitative (PE/DVT) (test 0.49 0.00-0.45 H code = 69347-4) [facility] TexasDirect Uwrqreeqb6314-34-36 13:47:00 Test Item Value Reference Range Interpretation Comments Direct Bilirubin (test code = 69933-1) 0.2 0.0-5.0 [facility] TexasMagnesium Foimn6507-56-69 06:52:00 Test Item Value Reference Range Interpretation Comments Magnesium Level (test code = 52652-7) 1.5 1.3-2.1 [facility] TexasUrine NGA3039-22-61 05:09:00 Test Item Value Reference Range Interpretation Comments Urine WBC (test code = 5821-4) NONE 0-5 [facility] TexasUrine [id number] 05:09:00 Test Item Value Reference Range Interpretation Comments Urine RBC (test code = 54653-4) NONE 0-5 [facility] TexasUrine Jusmatoh9624-61-68 05:09:00 Test Item Value Reference Range Interpretation Comments Urine Bacteria (test code = 77904-1) NONE NONE [facility] TexasUrine Epithelial Cytqq1606-37-75 05:09:00 Test Item Value Reference Range Interpretation Comments Urine Epithelial Cells (test code = NONE NONE 46888-1) [facility] TexasUrine Gvkfi6647-90-88 04:46:00 Test Item Value Reference Range Interpretation Comments Urine Color (test code = 5778-6) YELLOW YELLOW [facility] TexasUrine Bvekwwm9803-47-29 04:46:00 Test Item Value Reference Range Interpretation Comments Urine Clarity (test code = 42788-0) CLEAR CLEAR [facility] TexasUrine Specific Mbtlqgn1130-27-69 04:46:00 Test Item Value Reference Range Interpretation Comments Urine Specific [place] (test code = 1.010 1.010-1.025 5811-5) [facility] TexasUrine [id number] 04:46:00 Test Item Value Reference Range Interpretation Comments Urine pH (test code = 96919-8) 8 5-7 H [facility] TexasUrine Leukocyte Jxboywav7298-42-53 04:46:00 Test Item Value Reference Range Interpretation Comments Urine Leukocyte Esterase (test code NEGATIVE NEGATIVE = 5799-2) [facility] TexasUrine Kpsrcdi0268-43-60 04:46:00 Test Item Value Reference Range Interpretation Comments Urine Nitrite (test code = 74031-0) NEGATIVE NEGATIVE [facility] TexasUrine Jlgmwul5853-75-72 04:46:00 Test Item Value Reference Range Interpretation Comments Urine Protein (test code = 5804-0) NEGATIVE NEGATIVE [facility] TexasUrine Glucose (UA)2017-03-05 04:46:00 Test Item Value Reference Range Interpretation Comments Urine Glucose (UA) (test code = NEGATIVE NEGATIVE 2349-9) [facility] TexasUrine Gszqwxg9261-97-87 04:46:00 Test Item Value Reference Range Interpretation Comments Urine Ketones (test code = 84297-5) NEGATIVE NEGATIVE [facility] [id number] 04:46:00 Test Item Value Reference Range Interpretation Comments Urine Urobilinogen (test code = 0.2 0.2-1 58034-4) [facility] [id number] 04:46:00 Test Item Value Reference Range Interpretation Comments Urine Bilirubin (test code = 1978-6) NEGATIVE NEGATIVE [facility] [id number] 04:46:00 Test Item Value Reference Range Interpretation Comments Urine Blood (test code = 31000-4) 2+ NEGATIVE H [facility] [place] [address] PatientName: FAITH VANCE MR #: [id number] : 1960 [facility] 57[id number] Req #: [id number] [facility] Physician: ALEXIS COX MD Ordered by: ALEXIS COX MD Report #: [id number] Location: [facility] Room/Bed: [place] [address] Procedure: [id number] CT/CTA BRAIN Exam Date: 10/24/17 Exam Time: [...] sinus with small bilateral maxillary sinus retention cysts.IMPRESSION: 1. Atherosclerosis in the bilateral carotid siphons with approximately 50-60% stenosis in the left paraophthalmic segment and approximately 40-50% stenosis in the right paraophthalmic segment. 2. Atherosclerosis in the vertebral arteries with approximately 50% stenosis bilaterally in the proximal segments. 3. No additional intracranial CTA abnormalities. Signed by: Dr. Ana Maria Arteaga M.D.on 10/24/2017 4:33 PM Dictated By: ANA MARIA ARTEAGA MD 32 Transcribed By: ANDREE on 10/24/171632 COPY TO: ALEXIS COX MDCT BRAIN WO [place] [address] PatientName: FAITH VANCE MR #: [id number] : 1960 Age/Sex: 57/M Req #: [id number] Adm Physician: Ordered by: KHAI WAHL MD Report #: [id number] Location: ER Room/Bed: __ Procedure: [id number] CT/CT BRAIN WO Exam Date: 10/23/17 Exam [...] CT of 04/04/2017. Findings discussed with Dr. Maneevese disease at 4:36 PM on 10/23/2021. Signed by: Dr. Ana Maria Arteaga M.D. on 10/23/2017 4:43 PM Dictated By: ANA MARIA ARTEAGA MD 42 Transcribed By: ANDREE on 10/23/171642 COPY TO: KHAI WAHL V MDCTA CHEST [place] [address] PatientName: FAITH VANCE MR #: [id number] : 1960 Age/Sex: 57/M Req #: [id number] Adm Physician: Ordered by: KHAI WAHL MD Report #: [id number] Location: ER Room/Bed: __ Procedure: [id number] CT/CTA CHEST Exam Date: 10/23/17 Exam Time: [...] reviewed and is below limits set by [facility]). FINDINGS: Lines and Tubes: [...] 10/23/17 1621 COPY TO: KHAI WAHL V [facility] SINGLE (PORTABLE) [place] [address] PatientName: FAITH VANCE MR #: [id number] : 1960 Age/Sex: 57/M Req #: [id number] Adm Physician: Ordered by: KHAI WAHL MD Report #: [id number] Location: ER Room/Bed: __ Procedure: [id number] DX/CHEST SINGLE (PORTABLE) Exam Date: 10/23/17 Exam [...] TO: KHAI WAHL V MDCT BRAIN WO [place] [address] PatientName: FAITH VANCE MR #: [id number] : 1960 Age/Sex: 56/M Req #: [id number] Adm Physician: Ordered by: JACQUELYN MONTES DE OCA MD Report #: [id number] Location: ER Room/Bed: Procedure: [id number] CT/CT BRAIN WO Exam Date: Exam Time: REPORT STATUS: Signed EXAMINATION: Head CT without contrast. HISTORY:Status post fall. COMPARISON:Report of CT brain from 11/08/2008. TECHNIQUE: Multidetector axial images were obtained from the foramen magnum to the vertex without contrast. The images were reconstructed using brain and bone algorithms. Thin section brain images were reformatted intocoronal and sagittal planes. Intravenous contrast: None IMAGE [...] MONTES DE OCA MDCT CERVICAL SPINE WO [place] [address] PatientName: FAITH VANCE MR #: [id number] : 1960 Age/Sex: 56/M Req #: [id number] Adm Physician: Ordered by: JACQUELYN MONTES DE OCA MD Report #: [id number] Location: ER Room/Bed: Procedure: [id number] CT/CT CERVICAL SPINE WO Exam Date: Exam [...] 04/04/17206 COPY TO: JACQUELYN [facility]ONTES DE [facility]CA [facility] [place] [address] PatientName: FAITH VANCE MR #: [id number] : 1960 Age/Sex: 56/M Req #: [id number] Adm Physician: Ordered by: JACQUELYN MONTES DE OCA MD Report #: [id number] Location: ER Room/Bed: Procedure: [id number] DX/CHEST SINGLE (PORTABLE) Exam Date: 04/04/17 Exam [...] OCA MDHIP RIGHT 2-3 VW (+/- PELVIS) [place] [address] PatientName: FAITH VANCE MR #: [id number] : 1960 Age/Sex: 56/M Req #: [id number] Adm Physician: Ordered by: JACQUELYN MONTES DE OCA MD Report #: [id number] Location: ER Room/Bed: Procedure: [id number] DX/HIP RIGHT 2-3 VW (+/- PELVIS) Exam [...] DE OCA MDSP LUMBAR, COMPLETE MIN 4VW [place] [address] PatientName: FAITH VANCE MR #: [id number] : 1960 Age/Sex: 56/M Req #: [id number] Adm Physician: Ordered by: JACQUELYN MONTES DE OCA MD Report #: [id number] Location: ER Room/Bed: Procedure: [id number] DX/SP LUMBAR, COMPLETE MIN 4VW Exam Date: [...] JACQUELYN MONTES DE OCA MDUS ABDOMEN COMPLETE [place] [address] PatientName: FAITH VANCE MR #: [id number] : 1960 Age/Sex: 56/M Req #: [id number] [facility] Physician: NICHELLE PALACIOS MD Ordered by: SCOTT AMIN MD Report #: [id number] Location: [facility] Room/Bed: [place] [address] Procedure: [id number] US/US ABDOMEN COMPLETE Exam Date: 03/08/17 Exam [...] By: BROOKE SAMPSON MD 1040 Transcribed By: INFCE on 03/08/17 1040 COPY TO: [facility]NANSCOTT [facility] [place] [address] PatientName: FAITH VANCE MR #: [id number] : 1960 Age/Sex: 56/M Req #: [id number] Adm Physician: Ordered by: JACQUELYN MONTES DE OCA MD Report #: [id number] Location: ER Room/Bed: Procedure: [id number] DX/CHEST SINGLE (PORTABLE) Exam Date: 03/05/17 Exam Time: 444 REPORT STATUS: SignedCHEST SINGLE (PORTABLE), 03/05/2017 4:15 AM Technique: CHEST SINGLE (PORTABLE) Comparison: 01/04/2017 Clinical history: Chest pain Findings: Status post median sternotomy with broken superior sternotomy wire. See impression. Impression: Low lung volumes result in accentuation of the cardiomediastinal silhouette and bibasilar vascular crowding. No pleural effusion or pneumothorax. Signed by: Dr Marco A green MD on 03/05/2017 5:35 AM Dictated By: MARCO A TALBOT MD 4 Transcribed By: ANDREE on 03/05/1741 COPY TO: JACQUELYN MONTES DE OCA MD"
[2022-01-28 00:34] LABS: Absolute Lymphocytes (CBC) 1.4 K/uL (0.7-4.9); Hematocrit 33.8 % (39.6-49.0); Lymphocytes % 17.6 % (15.3-44.8); MCV 89.9 fL (80-100); MPV 7.2 fL (7.6-11.3); RBC Red Blood Cell Count 3.76 M/uL (4.33-5.43)
[2022-01-28] MEDS ORDERED: ONDANSETRON 4 MG/2 ML VIAL ONE (00:40)
[2022-01-28] MEDS ORDERED: MORPHINE 4 MG/ML SYR ONE (00:40)
[2022-01-28 00:55] LABS: Troponin High Sensitivity 24.9 pg/mL (<58.9)
[2022-01-28 00:56] LABS: Potassium 5.8 mmol/L (3.5-5.1)
--- NOTE | 2022-01-28 02:29 | ER ---
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 Coronavirus screen: Vaccine status: Patient reports receiving the 2nd dose of the covid vaccine. At this time, the client does not indicate any symptoms associated with coronavirus-19. Ebola Screen: No symptoms or risks identified at this time. Initial Sepsis Screen: Does the patient meet any 2 criteria? No. Patient's initial sepsis screen is negative. Does the patient have a suspected source of infection? No. Patient's initial sepsis screen is negative. Risk Assessment: Do you want to hurt yourself or someone else? Patient reports no desire to harm self or others. Onset of symptoms was January 28, 2022. Care prior to arrival: Medication(s) given: ASA, 81 mg, x 4, IV initiated. 22 GA, in the left hand. 00:06 Method Of Arrival: EMS: [facility] ll3 00:06 Acuity: TONE 3 ll3 Triage Assessment: 00:10 General: Appears uncomfortable, Behavior is calm, cooperative. Pain: Complains of pain ll3 in chest Pain does not radiate. Pain currently is 9 out of 10 on a pain scale. Quality of pain is described as stabbing, Pain began 1 hour ago. Is continuous. Neuro: Level of Consciousness is awake, alert, obeys commands, Oriented to person, place, time, situation. Cardiovascular: Patient's skin is warm and dry. Rhythm is Chest pain is described as Pain is 9 out of 10 on a pain scale. quality is stabbing, is located in anterior chest wall began 1 hour prior to arrival episodes are continuous. Respiratory: Respiratory effort is even, unlabored, Respiratory pattern is regular, symmetrical. Derm: Skin is pink, warm \T\ dry. Historical: - Allergies: 00:10 NKA; ll3 - PMHx: 00:10 Arthritis; Back pain; CVA; Hypothyroidism; Hypertension; Left sided weakness from ll3 previous CVA; Myocardial infarction; Pacemaker; Hyperlipidemia; Depression; Diabetes - NIDDM; Fibromyalgia; GERD; - PSHx: 00:10 bilat BKA's; bypass; CABG; ll3 - Immunization history:: Client reports receiving the 2nd dose of the Covid vaccine. - Social history:: Smoking status: Patient/guardian denies using tobacco. - Family history:: not pertinent. - Hospitalizations: : No recent hospitalization is reported. Screenin:23 Abuse screen: Denies threats or abuse. Denies injuries from another. Nutritional ll3 screening: No deficits noted. Tuberculosis screening: No symptoms or risk factors identified. Fall Risk No fall in past 12 months (0 pts). No secondary diagnosis (0 pts). IV access (20 points). Ambulatory Aid- None/Bed Rest/Nurse Assist (0 pts). Gait- Normal/Bed Rest/Wheelchair (0 pts) Mental Status- Oriented to own ability (0 pts). Total Cummings Fall Scale indicates No Risk (0-24 pts). Assessment: 00:13 Reassessment: See triage assessment. ll3 03:22 Reassessment: No changes from previously documented assessment. Patient and/or family ll3 updated on plan of care and expected duration. Pain level reassessed. Patient is alert, oriented x 3, equal unlabored respirations, skin warm/dry/pink. 04:17 Reassessment: No changes from previously documented assessment. Patient and/or family ll3 updated on plan of care and expected duration. Pain level reassessed. Patient is alert, oriented x 3, equal unlabored respirations, skin warm/dry/pink. Vital Signs: 00:06 BP 154 / 93; Pulse 73; Resp 20; Temp 98.3(O); Pulse Ox 100% on R/A; Weight 71.21 kg; ll3 Pain 9/10; 01:00 BP 132 / 72; Pulse 84; Resp 21; Pulse Ox 99% on R/A; ll3 02:00 BP 112 / 65; Pulse 79; Resp 20; Pulse Ox 98% ; ll3 03:22 BP 105 / 71; Pulse 86; Resp 19; Pulse Ox 98% on R/A; ll3 04:17 BP 112 / 62; Pulse 82; Resp 20; Pulse Ox 99% on R/A; ll3 ED Course: 00:05 Patient arrived in ED. ds4 00:06 Hawk Parrish MD is Attending Physician. rn 00:10 Triage completed. ll3 00:10 Arm band placed on Patient placed in an exam room, on a stretcher, on diagnostic cardiac sonographer, ll3 on pulse oximetry. 00:20 XRAY Chest (1 view) In Process Unspecified. EDMS 02:27 Alf Rios is Hospitalizing Provider. rn 03:23 Patient has correct armband on for positive identification. Placed in gown. Bed in low ll3 position. Call light in reach. Side rails up X 1. Client placed on continuous cardiac and pulse oximetry monitoring. NIBP monitoring applied. 03:24 No provider procedures requiring assistance completed. ll3 04:39 Patient admitted, IV remains in place. ll3 Administered Medications: 00:36 Drug: morphine 4 mg Route: IVP; Infused Over: 4 mins; Site: left hand; ll3 00:37 Drug: Zofran (Ondansetron) 4 mg Route: IVP; Site: left hand; ll3 02:58 Drug: Lasix (furosemide) 60 mg Route: IVP; Site: left hand; ll3 02:58 Drug: Kayexalate (polystyrene) 15 grams Route: PO; ll3 Medication: 03:24 VIS not applicable for this client. ll3 Outcome: 02:28 Decision to Hospitalize by Provider. rn 04:39 Admitted to Med/surg accompanied by tech, via stretcher, room 202. ll3 04:39 Condition: stable 04:39 Instructed on the need for admit, Demonstrated understanding of instructions. 05:01 Patient left the ED. ll3 Signatures: Dispatcher [employer] EDWV Hawk Parrish MD MD rn Swanson, Donovan ds4 Go Beauchamp RN RN ll3 Corrections: (The following items were deleted from the chart) 05:05 00:06 Care prior to arrival: IV initiated. 22 GA, in the left hand, ll3 ll3
--- NOTE | 2022-01-28 02:29 | EDPHYS ---
Physician Documentation [facility] Name: Ernie Rooney Age: 61 yrs Sex: Male : 1960 Arrival Date: 01/28/2022 Time: 00:05 Bed 4 Private MD: ED Physician Hawk Parrish HPI: 01/28 00:25 This 61 yrs old Male presents to ER via EMS with complaints of chest pain. rn 00:25 The patient or guardian reports chest pain that is located primarily in the substernal rn area. Onset: 1 hour(s) ago. 00:25 The pain does not radiate. Associated signs and symptoms: Pertinent negatives: rn abdominal pain, diaphoresis, shortness of breath, syncope, vomiting. The chest pain is described as stabbing. Duration: The patient or guardian reports multiple episodes, that are intermittent. Modifying factors: The symptoms are alleviated by nothing. the symptoms are aggravated by nothing. Severity of pain: At its worst the pain was moderate in the emergency department the pain is unchanged. The patient has experienced similar episodes in the past. The patient has been recently seen by a physician:. Pt reports still not able to fill his medication, has not gotten a check yet, still having chest pain, substernal, sharp, non-radiating. No fever/cough. NO trauma. . Historical: - Allergies: 00:10 NKA; ll3 - PMHx: 00:10 Arthritis; Back pain; CVA; Hypothyroidism; Hypertension; Left sided weakness from ll3 previous CVA; Myocardial infarction; Pacemaker; Hyperlipidemia; Depression; Diabetes - NIDDM; Fibromyalgia; GERD; - PSHx: 00:10 bilat BKA's; bypass; CABG; ll3 - Immunization history:: Client reports receiving the 2nd dose of the Covid vaccine. - Social history:: Smoking status: Patient/guardian denies using tobacco. - Family history:: not pertinent. - Hospitalizations: : No recent hospitalization is reported. ROS: 00:25 Constitutional: Negative for fever, chills, and weight loss, Eyes: Negative for injury, rn pain, redness, and discharge, Cardiovascular: Negative for palpitations, and edema, Respiratory: Negative for shortness of breath, cough, wheezing Abdomen/GI: Negative for nausea, vomiting, diarrhea, and constipation, Back: Negative for injury and pain, MS/Extremity: Negative for injury and deformity, Skin: Negative for injury, rash, and discoloration, Neuro: Negative for headache, weakness, numbness, tingling, and seizure. Exam: 00:31 Constitutional: This is a well developed, well nourished patient who is awake, alert, rn reporting chest pain, holding chest Head/Face: Normocephalic, atraumatic. Eyes: Periorbital areas with no swelling, redness, or edema. Cardiovascular: Regular rate and rhythm. No pulse deficits. Respiratory: No increased work of breathing, no retractions or nasal flaring. Abdomen/GI: Soft, non-tender Skin: Warm, dry MS/ Extremity: Pulses equal, no cyanosis. Neuro: Awake and alert, GCS 15 00:48 ECG was reviewed by the Attending Physician. rn Vital Signs: 00:06 BP 154 / 93; Pulse 73; Resp 20; Temp 98.3(O); Pulse Ox 100% on R/A; Weight 71.21 kg; ll3 Pain 9/10; 01:00 BP 132 / 72; Pulse 84; Resp 21; Pulse Ox 99% on R/A; ll3 02:00 BP 112 / 65; Pulse 79; Resp 20; Pulse Ox 98% ; ll3 03:22 BP 105 / 71; Pulse 86; Resp 19; Pulse Ox 98% on R/A; ll3 04:17 BP 112 / 62; Pulse 82; Resp 20; Pulse Ox 99% on R/A; ll3 MDM: 00:06 Patient medically screened. rn 02:26 Differential diagnosis: acute myocardial infarction, costochondritis, pleurisy, rn pneumothorax, pulmonary embolus, stable angina. Data reviewed: vital signs, nurses notes, lab test result(s), EKG, radiologic studies, plain films, and as a result, I will admit patient. Counseling: I had a detailed discussion with the patient and/or guardian regarding: the historical points, exam findings, and any diagnostic results supporting the discharge/admit diagnosis, lab results, radiology results, the need for further work-up and treatment in the hospital. Response to treatment: the patient's symptoms have mildly improved after treatment, and as a result, I will admit patient. Admission orders: after a detailed discussion of the patient's condition and case, the admit orders are written by me. ED course: Repeat potassium the same, 5.8, will admit for chest pain and hyperkalemia. . 01/28 00:07 Order name: Basic Metabolic Panel; Complete Time: 00:57 rn 01/28 00:07 Order name: CBC with Diff; Complete Time: 00:56 rn 01/28 00:07 Order name: NT PRO-BNP; Complete Time: 00:57 rn 01/28 00:07 Order name: Troponin HS; Complete Time: 00:57 rn 01/28 00:57 Order name: Potassium; Complete Time: 02:02 rn 01/28 02:35 Order name: SARS RAPID; Complete Time: 03:42 bb 01/28 00:07 Order name: XRAY Chest (1 view) rn 01/28 00:07 Order name: EKG; Complete Time: 00:07 rn 01/28 00:07 Order name: Cardiac monitoring; Complete Time: 00:31 rn 01/28 00:07 Order name: EKG - Nurse/Tech; Complete Time: 00:31 rn 01/28 00:07 Order name: IV Saline Lock; Complete Time: 00:31 rn 01/28 00:07 Order name: Labs collected and sent; Complete Time: 00:31 rn 01/28 00:07 Order name: O2 Per Protocol; Complete Time: 00:31 rn 01/28 00:07 Order name: O2 Sat Monitoring; Complete Time: 00:31 rn EC:48 Rate is 72 beats/min. Rhythm is regular. QRS interval is prolonged at 148 msec. QT rn interval is normal. No Q waves. T waves are Normal. No ST changes noted. Clinical impression: Paced rhythm. Interpreted by me. Reviewed by me. Administered Medications: 00:36 Drug: morphine 4 mg Route: IVP; Infused Over: 4 mins; Site: left hand; ll3 00:37 Drug: Zofran (Ondansetron) 4 mg Route: IVP; Site: left hand; ll3 02:58 Drug: Lasix (furosemide) 60 mg Route: IVP; Site: left hand; ll3 02:58 Drug: Kayexalate (polystyrene) 15 grams Route: PO; ll3 Disposition Summary: 01/28/22 02:28 Hospitalization Ordered Hospitalization Status: Observation rn Provider: Alf Rios rn Location: Telemetry/MedSurg (observation) rn Condition: Stable rn Problem: an ongoing problem rn Symptoms: have improved rn Bed/Room Type: Standard rn Room Assignment: 202(01/28/22 04:01) mw Diagnosis - Chest pain, unspecified rn - Hyperkalemia rn Forms: - Medication Reconciliation Form rn - SBAR form rn Signatures: Dispatcher [employer] EDEvelin Rosas, RN RN Hawk Hurt MD MD rn Loubet, Lynsea, RN RN 3 Makayla Moreno PA PA sb3 Corrections: (The following items were deleted from the chart) 00:33 00:25 Constitutional: Negative for fever, chills, and weight loss, Eyes: Negative for rn injury, pain, redness, and discharge, Cardiovascular: Negative for chest pain, palpitations, and edema, Respiratory: Negative for shortness of breath, cough, wheezing, and pleuritic chest pain, Abdomen/GI: Negative for abdominal pain, nausea, vomiting, diarrhea, and constipation, Back: Negative for injury and pain, MS/Extremity: Negative for injury and deformity, Skin: Negative for injury, rash, and discoloration, Neuro: Negative for headache, weakness, numbness, tingling, and seizure, rn 04:01 02:28 rn mw
[2022-01-28] MEDS ORDERED: FUROSEMIDE 100 MG/10 ML VIAL IV ONE (02:53)
[2022-01-28] MEDS ORDERED: SOD POLYSTYREN SUL 15 GM/60 ML UCUP ONE (02:54)
[2022-01-28 03:16] LABS: SARS-CoV-2 Antigen Rapid Res Negative (Negative)
--- NOTE | 2022-01-28 03:40 | P.HP ---
Certification for Inpatient Patient admitted to: Observation With expected LOS: <2 Midnights Patient will require the following post-hospital care: None Practitioner: I am a practitioner with admitting privileges, knowledge of patient current condition, hospital course, and medical plan of care. Services: Services provided to patient in accordance with Admission requirements found in Title 42 Section 412.3 of the Code of Federal Regulations Patient History Date of Service: 01/28/22 Reason for admission: CP/Hyperkalemia History of Present Illness: Patient is a 61-year-old male with history of CAD s/p CABG with pacemaker/defibrillator, afib on eliquis, hypertension, hyperlipidemia, IDDM, hypothyroidism, and systolic CHF who presented to the ED via EMS with complaints of chest pain. He has had several cardiac works ups, found to have an EF of 23% with severe global hypokinesis and mild pulmonary hypertension, and discharged with life vest. Cardiology has recommended outpatient stress test, echocardiogram, and lower extremity arterial Doppler. Patient does not take his medications because he states that he cannot afford them. EKG without acute changes. Troponin WNL. Potassium was elevated at 5.8 and was repeated and again 5.8. He was given lasix and kayexalate in ED. He is admitted for observation. Allergies No Known Allergies Allergy (Verified 12/21/21 00:23) Home Medications: lisinopriL [Prinivil*] 2.5 mg PO DAILY 11/19/18 Aspirin Chewable [Aspirin Chewable*] 81 mg PO DAILY 05/11/19 ondansetron HCL [Zofran] 4 mg PO Q8H PRN 08/01/19 Cyclobenzaprine [Flexeril*] 10 mg PO BID PRN 12/21/21 Dicyclomine [Bentyl*] 20 mg PO QID 12/21/21 Docusate Sodium 100 mg PO BID 12/21/21 Gabapentin 800 mg PO BID 12/21/21 Hydrocodone 5/APAP 325 [[place] 5/325*] 1 tab PO Q6H PRN #12 tab 12/28/21 Gabapentin 1 cap PO BEDTIME 01/14/22 Apixaban [Eliquis] 5 mg PO BID #60 tab 01/15/22 Atorvastatin Calcium 40 mg PO DAILY #30 01/15/22 Furosemide 40 mg PO BID #30 01/15/22 Insulin -Regular Human [Novolin -R*] 1 unit SQ PRN 01/15/22 Insulin 70/30 NPH/Reg Human [Novolin 70/30*] 5 unit SQ PRN 01/15/22 Levothyroxine Sodium [Levothyroxine] 50 mcg PO DAILY 30 Days #30 01/15/22 Metformin HCl 500 mg PO DAILY #30 01/15/22 Metoprolol Succinate 0.5 tab PO DAILY 30 Days #30 01/15/22 Omeprazole 20 mg PO DAILY 30 Days #30 01/15/22 Spironolactone 25 mg PO DAILY #30 01/15/22 Tamsulosin [Flomax*] 0.4 mg PO DAILY #30 cap 01/15/22 Venlafaxine HCl 75 mg PO BID 30 Days #60 01/15/22 glipiZIDE [Glipizide] 10 mg PO DAILY #30 01/15/22 - Past Medical/Surgical History Diabetic: Yes -: CAD/NH -: GERD -: Hypertension -: Anxiety/depression -: DM insulin dependent -: Hypothyroidism -: enlarged prostate -: cataract in the left eye -: fibromyalgia -: hyperlipidemia -: neuropathy -: Systolic CHF -: pacemaker placement May 2017 -: triple bypass 2002 4 stents -: back surgeries x 6 -: arthroscopic surgeries bilateral knees -: left forearm rodding -: Cholecystectomy -: Appendectomy -: tonsillectomy Psychosocial/ Personal History: Patient lives at home. He does not work. - Family History Mother -: Heart disease, Hypertension grandparents -: Diabetes, Stroke - Social History Alcohol use: No CD- Drugs: No Caffeine use: Yes Review of Systems Cardiovascular: Chest Pain Physical Examination - Physical Exam General: Alert, In no apparent distress HEENT: Atraumatic, EOMI, Sclerae nonicteric Neck: Supple, No LAD Respiratory: Clear to auscultation bilaterally, Normal air movement Cardiovascular: Regular rate/rhythm, Normal S1 S2 Gastrointestinal: Normal bowel sounds, No tenderness Musculoskeletal: No tenderness Integumentary: No rashes Neurological: Normal speech, Sensation intact - Studies Laboratory Data (last 24 hrs) 01/28/22 01:31: Potassium 5.8 H* 01/28/22 00:26: WBC 8.00, Hgb 11.6 L, Hct 33.8 L, Plt Count 311 01/28/22 00:26: Sodium 140, Potassium 5.8 H*, BUN 17, Creatinine 0.99, Glucose 286 H Assessment and Plan - Problems (Diagnosis) (1) Hyperkalemia Current Visit: Yes Status: Acute (2) Noncompliance with medication regimen Current Visit: Yes Status: Acute (3) Chest pain Current Visit: Yes Status: Acute Qualifiers: Chest pain type: unspecified Qualified Code(s): R07.9 - Chest pain, unspecified (4) CAD (coronary artery disease) Current Visit: Yes Status: Chronic Qualifiers: Coronary Disease-Associated Artery/Lesion type: bypass graft [place] vs. transplanted heart: [place] heart Associated angina: with unstable angina Qualified Code(s): I25.700 - Atherosclerosis of coronary artery bypass graft(s), unspecified, with unstable angina pectoris (5) CHF (congestive heart failure) Current Visit: Yes Status: Chronic Qualifiers: Heart failure type: systolic Heart failure chronicity: chronic Qualified Code(s): I50.22 - Chronic systolic (congestive) heart failure (6) Diabetes mellitus Current Visit: Yes Status: Chronic Qualifiers: Diabetes mellitus type: type 2 Diabetes mellitus retirement insulin use: with retirement use Diabetes mellitus complication status: with hyperglycemia Qualified Code(s): E11.65 - Type 2 diabetes mellitus with hyperglycemia; Z79.4 - group home (current) use of insulin (7) Hyperlipidemia Current Visit: Yes Status: Chronic Qualifiers: Hyperlipidemia type: unspecified Qualified Code(s): E78.5 - Hyperlipidemia, unspecified (8) Hypertension Current Visit: Yes Status: Chronic Qualifiers: Hypertension type: primary hypertension Qualified Code(s): I10 - Essential (primary) hypertension (9) Hypothyroidism Current Visit: Yes Status: Chronic Qualifiers: Hypothyroidism type: acquired Qualified Code(s): E03.9 - Hypothyroidism, unspecified - Plan -Initial troponin negative. Will trend. monitor on telemetry -Initial potassium 5.8 and repeat confirmed. Given lasix and kayexalate in ED. No EKG changes. Monitor BMP. -Morphine PRN pain -ACHS Accu-Chek, moderate sliding scale insulin. Diabetic diet -Reconcile and continue home medications -Monitor and replete electrolytes per protocol -Eliquis for VTE prophylaxis -Full code Patient has had several cardiac works ups, found to have an EF of 23% with severe global hypokinesis and mild pulmonary hypertension. Cardiology has recommended outpatient stress test, echocardiogram, and lower extremity arterial Doppler. Patient does not take his medications because he states that he cannot afford them. Discharge Plan: Home Plan to discharge in: 24 Hours - Advance Directives Does patient have a Living Will: No Does patient have a Durable POA for Healthcare: No - Code Status/Comfort Care Code Status Assessed: Yes (Full) Critical Care: No Time Spent Managing Pts Care (In Minutes): 50
[2022-01-28] MEDS ORDERED: ACETAMINOPHEN 500 MG TAB PO PRN (05:02)
[2022-01-28] MEDS ORDERED: ONDANSETRON 4 MG/2 ML VIAL IV PRN (05:02)
[2022-01-28] MEDS: HYDROCODONE/APAP 5/325 MG TAB PO PRN ×2 (06:02→10:05)
[2022-01-28 06:32] VITALS: BMI 26.5
[2022-01-28] MEDS: INSULIN -REGULAR HUMAN 50 UNIT/0.5 ML ML SQ SCH ×3 (07:30→16:30)
[2022-01-28] MEDS ORDERED: ENOXAPARIN 40 MG/0.4 ML SQ SCH (09:00)
--- NOTE | 2022-01-28 11:03 | RAD REPORT ---
EXAM DESCRIPTION: XR Chest, 1 View CLINICAL HISTORY: The patient is 61 years old and is Male; CHEST PAIN TECHNIQUE: Frontal view of the chest. COMPARISON: No relevant prior studies available. FINDINGS: Lungs: Unremarkable. No consolidation. Pleural space: Unremarkable. No pneumothorax. Heart: Unremarkable. Mediastinum: Unremarkable. Bones/joints: Median sternotomy wires. Tubes, lines and devices: Left-sided pacemaker. IMPRESSION: No acute findings in the chest. Electronically signed by: Todd Torres MD 01/28/2022 12:31 AM CDT Due to temporary technical issues with the PACS/Fluency reporting system, reports are being signed by the in house radiologists without review as a courtesy to insure prompt reporting. The interpreting radiologist is fully responsible for the content of the report.
[2022-01-28] MEDS: MORPHINE 2 MG/ML SYR IV PRN ×2 (13:07→17:07)
[2022-01-28 14:13] VITALS: O2SAT 98
[2022-01-28 15:20] LABS: Specific Gravity 1.013 (1.005-1.030); Urine Bilirubin NEGATIVE (Negative); Urine Blood 2+ (Negative); Urine Clarity Clear (Clear); Urine Color Light-Yellow (Yellow); Urine Glucose NEGATIVE (Negative); Urine Mucus Slight /HPF (None Seen); Urine Protein 2+ (Negative); Urine Urobilinogen Normal (Normal)
[2022-01-28 16:34] VITALS: BP 105/62; TEMP 97.5
--- NOTE | 2022-01-28 16:49 | P.DS ---
Admission Date: 01/28/22 Discharge Date: 01/28/22 Disposition: ROUTINE DISCHARGE Discharge Condition: FAIR Reason for Admission: CP/Hyperkalemia - Problems (1) Chest pain Current Visit: Yes Status: Acute Qualifiers: Chest pain type: unspecified Qualified Code(s): R07.9 - Chest pain, unspecified (2) Hyperkalemia Current Visit: Yes Status: Acute (3) Noncompliance with medication regimen Current Visit: Yes Status: Acute (4) CAD (coronary artery disease) Current Visit: Yes Status: Chronic Qualifiers: Coronary Disease-Associated Artery/Lesion type: bypass graft [place] vs. transplanted heart: [place] heart Associated angina: with unstable angina Qualified Code(s): I25.700 - Atherosclerosis of coronary artery bypass graft(s), unspecified, with unstable angina pectoris (5) Diabetes mellitus Current Visit: Yes Status: Chronic Qualifiers: Diabetes mellitus type: type 2 Diabetes mellitus intermission coordinator insulin use: with detention use Diabetes mellitus complication status: with hyperglycemia Qualified Code(s): E11.65 - Type 2 diabetes mellitus with hyperglycemia; Z79.4 - half-way (current) use of insulin Brief History of Present Illness: Patient is a 61-year-old male with history of CAD s/p CABG with pacemaker/defibrillator, afib on eliquis, hypertension, hyperlipidemia, IDDM, hypothyroidism, and systolic CHF who presented to the ED via EMS with complaints of chest pain. He has had several cardiac works ups, found to have an EF of 23% with severe global hypokinesis and mild pulmonary hypertension, and discharged with life vest. Underwent cardiac catheterization about 1 week ago and patient noted to have diffuse coronary artery disease, multiple patent stent and aggressive medical treatment recommended. Patient does not take his medications because he states that he cannot afford them. EKG without acute changes. Troponin WNL. Potassium was elevated at 5.8 and was repeated and again 5.8. He was given lasix and kayexalate in ED. Patient placed under observation for further management. Hospital Course: Troponin trended negative. He was complaining of left-sided chest pain. Physical examination revealed chest pain is reproducible by palpation. Pain was managed with [place] and IV morphine. Repeat potassium level is 5.0. ACS ruled out. Patient is deemed stable for discharge. He is given refill for his medications. Vital Signs/Physical Exam: Temp Pulse Resp BP Pulse Ox 97.5 F 69 18 105/62 98 01/28/22 16:00 01/28/22 16:00 01/28/22 16:00 01/28/22 16:00 01/28/22 16:00 Laboratory Data at Discharge: WBC Cancelled 01/28/22 05:02 Hgb Cancelled 01/28/22 05:02 Hct Cancelled 01/28/22 05:02 Plt Count Cancelled 01/28/22 05:02 Sodium Cancelled 01/28/22 05:02 Potassium 5.0 mmol/L (3.5-5.1) 01/28/22 12:00 BUN Cancelled 01/28/22 05:02 Creatinine Cancelled 01/28/22 05:02 Glucose Cancelled 01/28/22 05:02 Home Medications: ondansetron HCL [Zofran] 4 mg PO Q8H PRN 08/01/19 Cyclobenzaprine [Flexeril*] 10 mg PO BID PRN 12/21/21 Dicyclomine [Bentyl*] 20 mg PO QID 12/21/21 Docusate Sodium 100 mg PO DAILY 12/21/21 Gabapentin 800 mg PO BID 12/21/21 Levothyroxine Sodium [Levothyroxine] 50 mcg PO DAILY 30 Days #30 01/15/22 Venlafaxine HCl 75 mg PO BID 30 Days #60 01/15/22 glipiZIDE [Glipizide] 10 mg PO DAILY #30 01/15/22 Apixaban [Eliquis] 5 mg PO BID #60 01/28/22 Aspirin Chewable [Aspirin Chewable*] 81 mg PO DAILY #30 tab.chew 01/28/22 Atorvastatin Calcium [Lipitor] 40 mg PO BEDTIME #30 tab 01/28/22 Furosemide 40 mg PO BID #60 tab 01/28/22 Hydrocodone 5/APAP 325 [[place] 5/325*] 1 tab PO Q4H PRN #12 tab 01/28/22 Insulin -Regular Human [Novolin -R*] 6 unit SQ BIDWM #10 ml 01/28/22 Insulin 70/30 NPH/Reg Human [Novolin 70/30*] 6 unit SQ DAILY #10 ml 01/28/22 Metformin HCl 500 mg PO DAILY #30 tab 09/09/22 Metoprolol Succinate 0.5 tab PO DAILY 30 Days #30 tab 01/28/22 Omeprazole 20 mg PO DAILY 30 Days #30 01/28/22 Spironolactone 25 mg PO DAILY #30 tab 01/28/22 Tamsulosin [Flomax*] 0.4 mg PO DAILY #30 cap 01/28/22 lisinopriL [Prinivil*] 2.5 mg PO DAILY #30 tab 01/28/22 New Medications: Aspirin Chewable [Aspirin Chewable*] 81 mg PO DAILY #30 tab.chew Apixaban [Eliquis] 5 mg PO BID #60 Tamsulosin [Flomax*] 0.4 mg PO DAILY #30 cap Furosemide 40 mg PO BID #60 tab Atorvastatin Calcium [Lipitor] 40 mg PO BEDTIME #30 tab Metformin HCl 500 mg PO DAILY #30 tab Metoprolol Succinate 0.5 tab PO DAILY 30 Days #30 tab Hydrocodone 5/APAP 325 [[place] 5/325*] 1 tab PO Q4H PRN #12 tab PRN Reason: Pain Scale 5-7 (Moderate) Insulin -Regular Human [Novolin -R*] 6 unit SQ BIDWM #10 ml Insulin 70/30 NPH/Reg Human [Novolin 70/30*] 6 unit SQ DAILY #10 ml Omeprazole 20 mg PO DAILY 30 Days #30 lisinopriL [Prinivil*] 2.5 mg PO DAILY #30 tab Spironolactone 25 mg PO DAILY #30 tab Diet: ADA Activity: Ad nafisa Followup: Luca Royal MD [ACTIVE - CAN ADMIT] - 1 Week (Please call to schedule an appointment ) NONE,NONE [Primary Care Provider] - 1 Week (Please call top schedule an appointment )
--- NOTE | 2022-01-31 05:42 | EKG ---
Test Date: 2022-01-28 Test Time: 00:22:47 Crop Puller: AVI MEASUREMENT RESULTS: Intervals: Rate: 72 OK: 168 QRSD: 148 QT: 430 QTc: 470 [place]: P: 28 OK: 168 QRS: -38 T: 139 INTERPRETIVE STATEMENTS: Electronic ventricular pacemaker Compared to ECG 01/24/2022 16:31:53 Atrial-sensed ventricular-paced complex(es) or rhythm no longer present Electronically Signed On 01-31-22 05:39:53 CDT by Luca Royal
== END 2022-01-28 19:55 | disposition home or self-care (01) ==
LOC: ER 00:02 → ERHOLD 03:47 → 2ND 04:14
PROVIDERS: ADMIT Internal Medicine; ATTEND Internal Medicine
DX: I25.700 Atherosclerosis of coronary artery bypass graft(s), unspecified, with unstable angina pectoris (principal); E87.5 Hyperkalemia; I27.29 Other secondary pulmonary hypertension; I50.22 Chronic systolic (congestive) heart failure; I48.91 Unspecified atrial fibrillation; I10 Essential (primary) hypertension; E78.5 Hyperlipidemia, unspecified; E03.9 Hypothyroidism, unspecified; E11.65 Type 2 diabetes mellitus with hyperglycemia; K21.9 Gastro-esophageal reflux disease without esophagitis; M79.7 Fibromyalgia; Z86.79 Personal history of other diseases of the circulatory system; Z79.4 Long term (current) use of insulin; Z91.14 Patient's other noncompliance with medication regimen; Z79.01 Long term (current) use of anticoagulants; Z95.1 Presence of aortocoronary bypass graft; Z82.49 Family history of ischemic heart disease and other diseases of the circulatory system; Z20.822 Contact with and (suspected) exposure to COVID-19; Z95.810 Presence of automatic (implantable) cardiac defibrillator
CPT/HCPCS: 93005; 85025; 81001; 80048; 36415; 84132 ×2; 82947 ×3; 84484 ×3; 83880; 71045; 96375; 96374; 99285; 87811; J1815; J1650; J2270 ×2; J2405; G0378 ×2

== ENCOUNTER 2022-01-30 17:46 | Emergency (ER) | payer OTHER ==
--- OUTSIDE RECORDS SUMMARY | 2022-01-30 17:53 | XMS REPORT | Continuity of Care Document ---
:1960 Author Organization [facility] t Address [address] [place] [address] Care Team Providers Name Role Phone MONIKA HALL MD Primary Care Physician [id number] Attending Clinician Unavailable Harshal Zhu Attending Clinician [...] Clinician Unavailable NICHELLE PALACIOS Attending Clinician Unavailable [id number] Admitting Clinician Unavailable Nika Martin Admitting Clinician Unavailable KNOW, DOES_NOT Admitting Clinician Unavailable Physician, No Primary or Family Admitting Clinician UnavailTroy Dunne Admitting Clinician Unavailable MIHAELA MARTIN Admitting Clinician Unavailable OC BRYSON Admitting Clinician Unavailable LIZETT WEST Admitting Clinician Unavailable Tej_Rizwana Admitting Clinician Unavailable Feed Carrera Admitting Clinician Unavailable Johnie Montanez Admitting Clinician Unavailable ALEXIS COX Admitting Clinician Unavailable NICHELLE PALACIOS Admitting Clinician Unavailable Payers Payer Name Policy Type Policy Number Effective Date Expiration Date S willow [facility] [id number] Cellectis [id number] 2018spring 00:00:00 Picturelife [id number] 2004 LUCY Frankel 00:00:00 [facility] [...] y of l artery l artery 00:00: [place] disease) disease) 00 Medica l Branch Anemia [...] Added automatic ally from request for surgery [id number] Troponin I Troponin I Disease Active 2019- [...] 00:00: [place] involving involving 00 Medi uriel chemehuevi chemehuevi 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 Type 2 Type 2 Disease Active 2019- Univers diabetes diabetes 01-17 ity of mellitus mellitus 00:00: [place] without without 00 Medical complicati complicati Br anch on, on, without without long-term long-term current current use of use of insulin insulin Essential Essential Disease Active Uni vers hypertensi hypertensi 01-17 it y of on on 00:00: [place] [id number] Medical Branch Other Other Disease Active Univers hyperlipid hyperlipid 01-17 it y of emia emia 00:00: [place] [address] Medical Branch Stroke Stroke Disease Active Univers 5-12 ity of 00:00: [place] [facility] Left-sided Left-sided Disease Active U nivers weakness weakness 5- ity of 00:00: [place] [facility] Left sided Left sided Disease Active U nivers numbness numbness - ity of 00:00: [place] 00 Medical Branch S/P admn S/P admn Disease Active Unive rs tPA in tPA in 4-11 ity of diff fac diff fac 00:00: [place] w/n last w/n last 00 Medica l 24 hr bef 24 hr bef Bran ch adm to adm to crnt fac crnt fac Unstable Unstable Disease Active Unive rs angina angina 4-10 ity of 00:00: [place] [facility] Atypical Atypical Disease Active Unive rs chest pain chest pain 2-22 it y of 00:00: [place] [facility] [place] Chest pain Chest pain Problem Active [facility] Coronary CAD Problem Active [facility] artery (coronary [facility] disease artery Patient disease) Medical [place] Diabetic DKA Problem Active [facility] ketoacidos (diabetic Esme es is ketoacidos Patien t es) Medical [place] Hyperglyce Hyperglyce Problem Active [facility] bambi bambi [facility] Hypertensi Hypertensi Problem Active [facility] on on [facility] Pancreatit Pancreatit Problem Active [facility] is is [facility] Uncontroll Uncontroll Problem Active [facility] ed ed [facility] diabetes diabetes Patien t mellitus mellitus Medica l Center Allergies, Adverse Reactions, Alerts Allergy Allergy Status Severity Reaction(s) Onset Inactive Treating Comm ents Source Name Type Date Date Clinician No Known DA Active U 2021-0 [facility] Allergie 3-22 [place] [facility] 00:00: d 00 [facility] No Known DA Active U 2020-0 [facility] Allergie 3-22 [place] 00:00: d 00 [facility] No Known DA Active U 2017- [facility] Allergie 2-31 [facility] s 00:00: Mejia 00 [facility] No Known DA Active U 2018-1 [facility] Allergie 2-31 Clear s 00:00: Mejia 00 [facility] No Known DA Active U 2018-0 [facility] Allergie 3-26 [place] 00:00: e 00 [facility] NO KNOWN Drug Active Univers ALLERGIE Class ity of S [place] [facility] Social History Social Habit Start Date Stop Date Quantity Comments Source History of Cigarette Smoker Universi ty of tobacco use [place] [facility] History SDOH University o f Alcohol Frequency [place] [facility] History SDOH University o f Alcohol Std [place] [facility] Drinks Branch History SDOH University o f Alcohol Binge [place] [facility] al [facility] Exposure to 2021-10-30 2021-11-09 Unable to assess Univers ity of SARS-CoV-2 00:00:00 15:13:00 [facility] (event) Branch Alcohol intake 2021-11-05 2021-11-05 1.71 /d University of 00:00:00 00:00:00 [facility] Branch Tobacco Comment 2021-11-03 2021-11-03 quit 15 years ago Un iversity of 00:00:00 00:00:00 [place] [facility] Education 2021-10-27 2021-10-27 9 University of 00:00:00 00:00:00 [place] [facility] History SDOH 2020-03-16 2020-03-16 3 University o f Financial 00:00:00 00:00:00 [place] [facility] History SDOH Food 2020-03-16 2020-03-16 2 Univers ity of Worry 00:00:00 00:00:00 [place] [facility] History SDHI Food 2020-03-16 2020-03-16 2 Univers ity of Scarcity 00:00:00 00:00:00 [place] [facility] History SDOH 2020-03-16 2020-03-16 1 University o f Transport Med 00:00:00 00:00:00 [place] [facility] History SDOH 2020-03-16 2020-03-16 1 University o f Transport Non-Med 00:00:00 00:00:00 [place] [facility] Alcohol Comment 2019-07-18 2019-07-18 quit drinking [employer] of 00:00:00 00:00:00 2013 but drank [facility] heavily before Branch this Tobacco use and 2018-07-14 2018-07-14 Never used Universit y of exposure 00:00:00 00:00:[address] [facility] Sex Ass[birth year] At [birth year] Universit y of 00:00:00 00:00:[address] [facility] Smoking Status Start Date Stop Date Source Former smoker 2018-07-14 00:00:00 2018-07-14 00:00:00 [facility] Medications Ordered Filled Start Stop Current [...] at 0215, 1 mL gabapentin 2021- Yes [id number] 300mg Take 1 Univers 300 mg 11-05 capsule by ity of capsule 00:00: 04:59 mouth 3 [place] 00 :00 (three) Medical times Branch daily for 10 days. gabapentin 2021- Yes [id number] 300mg Take 1 Univers 300 mg 11-05 capsule by ity of capsule 00:00: 04:59 mouth 3 [place] 00 :00 (three) Medical times Branch daily for 10 days. aspirin 81 2021- Yes [id number] 81mg Take 1 Univers mg chewable 6-16 07-17 tablet by it y of tablet 00:00: 04:59 mouth [place] 00 :00 daily for Medical 30 days. Branch aspirin 81 2021- Yes [id number] 81mg Take 1 Univers mg chewable 6-16 07-17 tablet by it y of tablet 00:00: 04:59 mouth [place] 00 :00 daily for Medical 30 days. Branch aspirin 81 2021- Yes [id number] 81mg Take 1 Univers mg chewable 6-16 07-17 tablet by it y of tablet 00:00: 04:59 mouth [place] 00 :00 daily for Medical 30 days. Branch proMETHazin Yes [id number] 25mg Take 1 Univers e 25 mg 6-03 tablet by ity of tablet 00:00: mouth [place] 00 every 6 Medical (six) Branch hours as needed for Nausea and Vomiting (N/V). proMETHazin Yes [id number] 25mg Take 1 Univers e 25 mg 6-03 tablet by ity of tablet 00:00: mouth [place] 00 every 6 Medical (six) Branch hours as needed for Nausea and Vomiting (N/V). proMETHazin 2022-0 Yes [id number] 25mg Take 1 Univers e 25 mg 6-03 tablet by ity of tablet 00:00: mouth [place] 00 every 6 Medical (six) Branch hours as needed for Nausea and Vomiting (N/V). fenofibrate 2021- No [id number] 134mg Take 1 Univers micronized -19 12- capsule by it y of 134 mg 00:00: 04:59 mouth [place] capsule 00 :00 daily for Medical 30 days. Branch lisinopriL 2021- No [id number] 2.5mg Take 1 Univers 2.5 mg -19 12- tablet by ity of tablet 00:00: 04:59 mouth [place] 00 :00 daily for Medical 30 days. Branch fenofibrate 2021- No [id number] 134mg Take 1 Univers micronized -19 12- capsule by it y of 134 mg 00:00: 04:59 mouth [place] capsule 00 :00 daily for Medical 30 days. Branch lisinopriL 2021- No [id number] 2.5mg Take 1 Univers 2.5 mg -19 12- tablet by ity of tablet 00:00: 04:59 mouth [place] 00 :00 daily for Medical 30 days. Branch fenofibrate 2021- No [id number] 134mg Take 1 Univers micronized -19 12- capsule by it y of 134 mg 00:00: 04:59 mouth [place] capsule 00 :00 daily for Medical 30 days. Branch lisinopriL 2021- No [id number] 2.5mg Take 1 Univers 2.5 mg -19 12- tablet by ity of tablet 00:00: 04:59 mouth [place] 00 :00 daily for Medical 30 days. Branch furosemide 2021- No [id number] 40mg Take 1 Univers 40 mg 5-30 [...] s: atrial fibrillati on calcitrioL 2021- No [id number] .5ug Take 1 Univers 0.5 mcg 5-30 06-30 capsule by ity o f capsule 00:00: 04:59 mouth [place] 00 :00 daily for Medical 30 days. Branch insulin NPH 2021- No [id number] 5U inject 5 Univers (HUMULIN N 5-30 06-30 Units ity of NPH U-100 00:00: 04:59 [place]ULIN[place] 00 :00 skin every Medic al 100 unit/mL evening Branc h injection for 30 days. atorvastati 2021- No [id number] 40mg Take 1 Univers n 40 mg 5-30 -30 tablet by ity of tablet 00:00: 04:59 mouth at [place] 00 :00 bedtime Medical for 30 Branch days. carvediloL 2021- No [id number] 3.125mg Take 1 Univers 3.125 mg 5-30 06-30 tablet by ity o f tablet 00:00: 04:59 mouth 2 [place] 00 :00 (two) Medical times [place] daily with meals for 30 days. furosemide 2021- No [id number] 40mg Take 1 Univers 40 mg 5-30 06-30 tablet by ity of tablet 00:00: 04:59 mouth [place] 00 :00 every Medical morning Branch and evening for 30 days. apixaban 5 2021- No [id number] 5mg Take 1 Univ ers mg tablet 5-30 06-30 tablet by ity of 00:00: 04:59 mouth 2 [place] 00 :00 (two) Medical times [place] daily for 30 days. Indication s: atrial fibrillati on calcitrioL 2021- No [id number] .5ug Take 1 Univers 0.5 mcg 5-30 06-30 capsule by ity o f capsule 00:00: 04:59 mouth [place] 00 :00 daily for Medical 30 days. Branch insulin NPH 2021- No [id number] 5U inject 5 Univers (HUMULIN N 5-30 06-30 Units ity of NPH U-100 00:00: 04:59 [place]ULIN[place] 00 :00 skin every Medic al 100 unit/mL evening Branc h injection for 30 days. atorvastati 2021- No [id number] 40mg Take 1 Univers n 40 mg 5-30 06-30 tablet by ity of tablet 00:00: 04:59 mouth at [place] 00 :00 bedtime Medical for 30 Branch days. carvediloL 2021- No [id number] 3.125mg Take 1 Univers 3.125 mg 5-30 -30 tablet by ity o f tablet 00:00: 04:59 mouth 2 [place] 00 :00 (two) Medical times Branch daily with meals for 30 days. furosemide 2021- No [id number] 40mg Take 1 Univers 40 mg 5-30 [...] s: atrial fibrillati on calcitrioL 2021- No [id number] .5ug Take 1 Univers 0.5 mcg 5-30 -30 capsule by ity o f capsule 00:00: 04:59 mouth [place] 00 :00 daily for Medical 30 days. Branch insulin NPH 2021- No [id number] 5U inject 5 Univers (HUMULIN N 5-30 06-30 Units ity of NPH U-100 00:00: 04:59 [place] INSULIN[place] 00 :00 skin every Medic al 100 unit/mL evening Branc h injection for 30 days. atorvastati 2021- No [id number] 40mg Take 1 Univers n 40 mg 5-30 -30 tablet by ity of tablet 00:00: 04:59 mouth at [place] 00 :00 bedtime Medical for 30 Branch days. carvediloL 2021- No [id number] 3.125mg Take 1 Univers 3.125 mg 5-30 -30 tablet by ity o f tablet 00:00: 04:59 mouth 2 [place] 00 :00 (two) Medical times Branch daily with meals for 30 days. metFORMIN Yes [id number] 500mg Take 1 U nivers 500 mg 3-02 tablet by ity of tablet 00:00: mouth 2 [place] 00 (two) Medical times Branch daily with meals. metFORMIN 0 Yes [id number] 500mg Take 1 U nivers 500 mg 3-02 tablet by ity of tablet 00:00: mouth 2 [place] (two) Medical times Branch daily with meals. metFORMIN 0 Yes [id number] 500mg Take 1 U nivers 500 mg 3-02 tablet by ity of tablet 00:00: mouth 2 [place] (two) Medical times Branch daily with meals. albuterol Yes [id number] 2{puff} Inhale 2 Univers 90 2-21 Puffs 2 ity of mcg/actuati 00:00: (two) [place] on inhaler 00 times Medical daily. Branch collagenase Yes [id number] Use as Univers 250 2-21 directed ity of unit/gram 00:00: by office Juan J as ointment 00 Medical Branch cyclobenzap Yes [id number] 10mg Take 1 Univers rine 10 mg 2-21 tablet by ity of tablet 00:00: mouth 2 [place] (two) Medical times Branch daily as needed for Muscle Spasms. dextrometho Yes [id number] 10mL Take 10 mL Univers rphan-guaif 2-21 by mouth ity of enesin 00:00: every 6 [place] 10-100 mg/5 00 (six) Medical mL solution hours as Bran ch needed for Cough. HYDROcodone Yes 1{tbl} Take 1 Un charley -acetaminop 2-21 tablet by ity of hen 5-325 00:00: mouth [place] mg tablet 00 every 6 Medical (six) Branch hours as needed for Pain (scale 4-6). melatonin 3 0 Yes [id number] 3mg Take 1 Univers mg tablet 2-21 tablet by ity o f 00:00: mouth at [place] 00 bedtime. Medical Branch ondansetron 0 Yes [id number] 4mg Take 1 Univers 4 mg 2-21 tablet by ity of disintegrat 00:00: mouth [place] ing tablet 00 every 8 Medica l (eight) Branch hours as needed for Nausea and Vomiting (N/V). albuterol 0 Yes [id number] 2{puff} Inhale 2 Univers 90 2-21 Puffs 2 ity of mcg/actuati 00:00: (two) [place] on inhaler 00 times Medical daily. Branch collagenase Yes [id number] Use as Univers 250 2-21 directed ity of unit/gram 00:00: by office Juan J as ointment 00 Medical Branch cyclobenzap Yes [id number] 10mg Take 1 Univers rine 10 mg 2-21 tablet by ity of tablet 00:00: mouth 2 [place] 00 (two) Medical times Branch daily as needed for Muscle Spasms. dextrometho 0 Yes [id number] 10mL Take 10 mL Univers rphan-guaif 2-21 [...] Pain (scale 4-6). melatonin 3 0 Yes [id number] 3mg Take 1 Univers mg tablet 2-21 tablet by ity o f 00:00: mouth at [place] 00 bedtime. Medical Branch ondansetron 0 Yes [id number] 4mg Take 1 Univers 4 mg 2-21 tablet by ity of disintegrat 00:00: mouth [place] ing tablet 00 every 8 Medica l (eight) Branch hours as needed for Nausea and Vomiting (N/V). albuterol Yes [id number] 2{puff} Inhale 2 Univers 90 2-21 Puffs 2 ity of mcg/actuati 00:00: (two) [place] on inhaler 00 times Medical daily. Branch collagenase 0 Yes [id number] Use as Univers 250 2-21 directed ity of unit/gram 00:00: by office Juan J as ointment 00 Medical Branch cyclobenzap Yes [id number] 10mg Take 1 Univers rine 10 mg 2-21 tablet by ity of tablet 00:00: mouth 2 [place] 00 (two) Medical times Branch daily as needed for Muscle Spasms. dextrometho 0 Yes [id number] 10mL Take 10 mL Univers rphan-guaif 2-21 [...] for Pain (scale 4-6). melatonin 3 Yes [id number] 3mg Take 1 Univers mg tablet 2-21 tablet by ity o f 00:00: mouth at [place] 00 bedtime. Medical Branch ondansetron Yes [id number] 4mg Take 1 Univers 4 mg 2-21 tablet by ity of disintegrat 00:00: mouth [place] ing tablet 00 every 8 Medica l (eight) Branch hours as needed for Nausea and Vomiting (N/V). Aspirin 81 Aspirin 81 2018- No Alexis [address] Mg Tab.chew Mg Tab.chew 10-26 Brooke Frankel 00:00: 00:00 Patient 00 :00 [facility] Diflunisal Diflunisal 2015- No Todd Wynn [address] [facility] (Dolobid) (Dolobid) 01-17[facility] 500 Mg 500 Mg 00:00: 00:00 Patient Tablet, 500 Tablet, 500 00 :00 M edical Mg Oral Mg Oral [place] Ondansetron Ondansetron 2015- No Todd Wynn [address] [facility] [address] Hcl Hcl 01-17 [place] as Luke s (Zofran*) 4 (Zofran*) 4 00:00: 00:00 needed for Patient Mg Tablet, Mg Tablet, 00 :00 Nausea M edical 4 Mg 4 Mg [place] Sublingual Sublingual Clopidogrel Clopidogrel Yes 75 Daily [...] [facility] nophen nophen needed for Patie nt (Bovina ([facility] Medical 10-325 10-325 Center Tablet) 1 [...] Mg 20 Mg [facility] Capsule.dr Lind.dr John [facility] Simvastatin Simvastatin Yes [address] 80 Mg 80 Mg [facility] Tablet Tablet Patient [facility] Tamsulosin Tamsulosin Yes Daily [facility] Hcl 0.4 Mg Hcl 0.4 Mg Esme es Cap.er.24h Cap.er.24h Pat [facility] Tramadol Tramadol Yes 50 Four Times C [...] Mg Oral Mg Oral :00 [facility] Insulin Insulin 2016- No 40 7AM [...] 06-17 [facility] Capsule., Capsule., 00:00 Patient :00 [facility] Insulin Insulin No Twice A [facility] S [...] 25 Mg Oral 25 Mg Oral :00 [facility] Albuterol Albuterol 90 As Needed [facility] [...] 00:00 Patient Mg Oral Mg Oral :00 [facility] Methocarbam Methocarbam No [address] ol ol 11-23 Times A [facility] (Robaxin) (Robaxin) 00:00 Day Manjula ent 500 Mg 500 Mg :00 Medical Tablet, 500 Tablet, 500 C enter Mg Oral Mg Oral Metronidazo Metronidazo No [address] le 500 Mg le 500 Mg 11-23 Luke s Tablet, 500 Tablet, 500 00:00 Patient Mg Oral Mg Oral :00 [facility] Nitroglycer Nitroglycer No .4 As Needed [...] Manjula ent Gm Oral Gm Oral :00 [facility] Temazepam Temazepam [address] (Restoril) (Restoril) 11-23 Theresa kes 30 Mg 30 Mg 00:00 Patient Capsule, 30 Capsule, 30 :00 M edical Mg Oral Mg Oral Center Tizanidine Tizanidine No [address] Hcl 4 Mg Hcl 4 Mg 11-23 [facility] Capsule, 4 Capsule, 4 00:00 Pa tient Mg Oral Mg Oral :00 [facility] Trazodone Trazodone No [address] Hcl 50 Mg Hcl 50 Mg 11-23 Luke s Tablet, 50 Tablet, 50 00:00 Pa tient Mg Oral Mg Oral :00 [facility] Venlafaxine Venlafaxine No 37.[address] [facility] Hcl 37.5 Mg Hcl 37.5 Mg 11-23 Day [facility] Tablet, Tablet, 00:00 Patient 37.5 Tab 37.5 Tab :00 Medical Oral Oral Center Cyclobenzap Cyclobenzap [address] rine Hcl 10 rine Hcl 10 12-19 Times A [facility] Mg Tablet, Mg Tablet, 00:00 Day Pa tient 10 Mg Oral 10 Mg Oral :00 [facility] ical [place] Gabapentin Gabapentin No [address] 300 Mg 300 Mg 12-19 Times A [facility] Capsule, Capsule, 00:00 Day Patien t 600 Mg Oral 600 Mg Oral :00 [facility] Pregabalin Pregabalin No 150 Twice A [...] Immunizations Ordered Filled Immunization Date Status Comments [facility] e Immunization Name Name Influenza Virus 2021-01-16 Completed Universit y of Vaccine 00:00:[address] [facility] Influenza Virus 2021-01-16 Completed Universit y of Vaccine 00:00:[address] [facility] Influenza Virus 2021-01-16 Completed Universit y of Vaccine 00:00:[address] [facility] SARS-COV-2 COVID-19 2020-10-16 Completed Unive rsity of PEDRO/J&J VACCINE 00:00:[address] [facility] SARS-COV-2 COVID-19 2020-10-16 Completed Unive rsity of PEDRO/J&J VACCINE 00:00:[address] [facility] SARS-COV-2 COVID-19 2020-10-16 Completed Unive rsity of PEDRO/J&J VACCINE 00:00:[address] [facility] Influenza Virus 2020-01-21 Completed Universit y of Vaccine 00:00:[address] [facility] Influenza Virus 2020-01-21 Completed Universit y of Vaccine 00:00:[address] [facility] Influenza Virus 2020-01-21 Completed Universit y of Vaccine 00:00:[address] [facility] Zoster Vaccine 2019-07-17 Completed University of Recombinant 00:00:[address] [facility] Zoster Vaccine 2019-07-17 Completed University of Recombinant 00:00:[address] [facility] Zoster Vaccine 2019-07-17 Completed University of Recombinant 00:00:[address] [facility] Td 2019-03-29 Completed University of 00:00:[address] [facility] Td 2019-03-29 Completed University of 00:00:[address] [facility] Td 2019-03-29 Completed University of 00:00:[address] [facility] Influenza Virus 2018-02-18 Completed Universit y of Vaccine 00:00:[address] [facility] Pneumococcal 2018-02-18 Completed University o f Polysaccharide, 00:00:00 [place] Med ical PPSV23 (PNEUMOVAX) [place] Influenza Virus 2018-02-18 Completed Universit y of Vaccine 00:00:[address] [facility] Pneumococcal 2018-02-18 Completed University o f Polysaccharide, 00:00:00 [place] Med ical PPSV23 (PNEUMOVAX) [place] Influenza Virus 2018-02-18 Completed Universit y of Vaccine 00:00:[address] [facility] Pneumococcal 2018-02-18 Completed University o f Polysaccharide, 00:00:00 [place] Med ical PPSV23 (PNEUMOVAX) [place] Influenza Virus 2008-03-19 Completed Universit y of Vaccine 00:00:[address] [facility] Pneumococcal 2008-03-19 Completed University o f Polysaccharide, 00:00:00 [place] [facility] ical PPSV23 (PNEUMOVAX) Branch Influenza Virus 2008-03-19 Completed Universit y of Vaccine 00:00:[address] [facility] Pneumococcal 2008-03-19 Completed University o f Polysaccharide, 00:00:00 [place] Med ical PPSV23 (PNEUMOVAX) Branch Influenza Virus 2008-03-19 Completed Universit y of Vaccine 00:00:[address] [facility] Pneumococcal 2008-03-19 Completed University o f Polysaccharide, 00:00:00 [facility] ical PPSV23 (PNEUMOVAX) Branch Vital Signs Vital Name Observation Time Observation Value Comments Source Systolic blood 2021-11-09 23:00:00 124 mm[Hg] Univer sity of pressure [facility] Diastolic blood 2021-11-09 23:00:00 69 mm[Hg] Unive rsity of [facility] Heart rate 2021-11-09 23:00:00 72 /min [facility] ty [facility] Respiratory rate 2021-11-09 23:00:00 25 /min [facility] O[facility] saturation in 2021-11-09 23:00:00 98 /min University of Arterial blood by [place] vufind uriel Pulse oximetry Branch Body temperature 2021-11-09 20:28:39 37.22 Sandy [facility] Body height 2021-11-09 20:16:00 170.2 cm [facility] Body weight 2021-11-09 20:16:00 71.215 kg [facility] BMI 2021-11-09 20:16:00 24.59 kg/m2 [facility] Systolic blood 2021-11-05 10:00:00 134 mm[Hg] Univer sity of [facility] Diastolic blood 2021-11-05 10:00:00 78 mm[Hg] Unive rsity of [facility] Heart rate 2021-11-05 10:00:00 81 /min [facility] ty [facility] Body temperature 2021-11-05 08:10:00 36.28 Sandy [facility] ersity [facility] Respiratory rate 2021-11-05 08:00:00 18 /min Univ ersity [facility] Oxygen saturation in 2021-11-05 08:00:00 99 /min University of Arterial blood by [employer] uriel Pulse oximetry Branch Body height 2021-11-05 05:48:00 170.2 cm [facility] Body weight 2021-11-05 05:48:00 71.215 kg [facility] BMI 2021-11-05 05:48:00 24.59 kg/m2 [facility] Procedures Procedure Date / Time Performing Clinician Source Performed XR CHEST 1 VW 2021-11-09 21:07:00 Troy Ku Mckenzie [facility] POCT GLUCOSE 2021-11-09 20:25:00 Troy Ku Mckenzie [facility] (AUTOMATED) [facility] MAGNESIUM 2021-11-09 20:19:00 [facility] TROPONIN I 2021-11-09 20:19:00 [facility] COMP. METABOLIC PANEL 2021-11-09 20:19:00 Troy Ku [facility] ([id number]) [facility] CBC WITH DIFF 2021-11-09 20:19:00 Troy Ku [facility] N-TERMINAL PRO-BNP 2021-11-09 20:19:00 Troy Ku [facility] XR CHEST 1 2021-11-05 06:38:35 Mihaela [facility] [id number] 2020-08-11 00:00:00 ALDMO [facility] [id number] 2020-08-11 00:00:00 ALDMO [facility] [id number] 2020-08-11 00:00:00 ALDMO [facility] [id number] 2020-08-11 00:00:00 ALDMO [facility] Computed tomography 2017-10-24 00:00:00 ALEXIS [facility] Patient angiography of brain [facility] CT angiography of chest 2017-10-23 00:00:00 KHAI WAHL V C HI [facility] Center Computed tomography of 2017-10-23 00:00:00 KHAI WAHL CH I [facility] Patient brain [facility] radiopaque contrast Computed tomography of 2017-04-04 00:00:00 LAVELL MONTES DE OCAMICAELA Andrew [facility] [place] Patient brain without [...] Clinicians Facility Department ID 2021-06-17 Outpatient 3 [id number] ENCKY MALDONADO [id number] ENCKY 10:24:03 07091 2021-06-17 Outpatient 3 [id number] ENCKY REF [id number] ENCKY 10:22:04 09571 2020-08-23 Inpatient HCACL FERNANDO [id number] [facility] 17:41:00 84 [facility] 2020-04-04 Inpatient Marko, HCAMN HCAMN [id number] [facility] 14:40:00 Edward 33 [facility] 2019-10-15 Inpatient RADHA Shah, HCAPM ENDO [id number] [facility] 15:30:00 Finn 10142 [facility] 2021-11-09 2021-11-09 Emergency X KINGS, K [facility] ERT [id number] Univers 15:15:00 18:32:00 ity [facility] 2021-11-09 2021-11-09 Emergency Kings, K [facility] 1.2.840.114 [id number] Univers 15:15:00 18:32:00 Mckenzie PEREZ 350.1.13.10 i ty [facility] 4.2.7.2.686 [facility] [id number] [address] 2021-11-05 2021-11-05 Emergency X [facility] ERT [id number] Univers 00:44:00 06:53:00 MIHAELA baugh [facility] 2021-11-05 2021-11-05 Emergency [facility] [id number] Univers 00:44:00 06:53:00 Mihaela PEREZ 350.1.13.10 ity [facility] 4.2.7.2.686 [facility] [id number] [address] 2021-11-04 2021-11-04 Transition RIVAS Feliciano 1.2.840.114 [id number] Univers 00:00:00 00:00:00 of Care Micaela DUQUE 350.1.13.10 it y of MARIE 4.2.7.2.686 Noe be[place]ett [id number] [facility] [address] 2021-11-02 2021-11-03 Outpatient X BRAYDON, [facility] [id number] Univers 22:35:00 15:46:[address] [facility] 2021-10-27 2021-10-29 Outpatient X DERRICK [facility] DARIUS [id number] Univers 17:41:00 14:03:[address] [facility] 2021-07-21 2021-07-21 Outpatient Tej_H VFP VFP [id number] [facility] 06:58:00 06:58:00 [id number] Family Practic e 2020-10-30 2020-11-05 [facility] [id number] [facility] 16:50:00 13:52:00 Fede 23830 [facility] 2020-10-31 2020-10-31 Outpatient AMELIA Carrera LABO [id number] [facility] 08:22:00 08:22:00 Fede 73 [facility] 2020-10-28 2020-10-28 Hospital Radiology [facility] 1.2.840.114 [id number] 08:30:17 23:59:00 Encounter Sera 350.1.13.10 [place] 4.2.7.2.686 [place] [id number] 807 2020-10-12 2020-10-12 Outpatient R CHANTELLE [facility] [id number] Univers 14:00:00 14:50:[address] [facility] 2020-10-06 2020-10-06 Office Ivana [facility] 1.2.840.114 [id number] 909 10:43:51 11:59:29 Visit Gina Perez 350.1.13.10 [place] 4.2.7.2.686 Professio [id number] [address] 2020-08-19 2020-08-19 Outpatient PEGGY THORPE OPLA [id number] [facility] 07:13:00 07:13:00 DOES_NOT 89 [facility] 2020-08-10 2020-08-14 Inpatient AMELIA Carey INTE.02 [id number] [facility] 09:09:00 18:56:00 Johnie 31 [facility] 2017-10-23 2017-10-27 Discharged 1 BROOKE, [facility] [id number] 17:29:00 16:54:00 Inpatient ALEXIS 90 Luke s [facility] 2017-04-03 2017-04-04 Departed ER TAVON, [facility] [id number] 23:17:00 03:53:00 Emergency LAIRD 58 Luke s Room [facility] 2017-03-05 2017-03-09 Discharged ER PHILIP, [facility] [id number] 06:54:00 10:58:00 Inpatient NICHELLE 46 Luke s (obs) [facility] 2017-01-04 2017-01-05 Discharged [facility] [id number] 10:33:00 18:56:00 Inpatient 63 Luke s (obs) [facility] Results Test Description Test Time Test Comments Results Result Comments Source TROPONIN I 2021-11-09 20:57:59 Test Item Value Reference Range Interpretation Comme nts TROPONIN I (test code = 0.017 ng/mL See_Comment [Au tomated message] The 5264720789) system which ge nerated this result tra [...] biotin. Lab Interpretation Normal (test code = 18844-6) [facility] [id number] 20:54:59 Test Item Value Reference Range Interpretation Comments NT-proBNP (test code 6490 pg/mL See_Comment H [Autom ated = 7988508535) message] The system which generated this result transmitted reference range : <=125. The reference range was not used to interpret this result as normal/abnormal . DIANE (test code = DIANE) Biotin has been reported to cause a negative bias, interpret results relative to patient's use of biotin. Lab Interpretation Abnormal (test code = 74520-4) [facility] 20:46:35 Test Item Value Reference Range Interpretation Comments MAGNESIUM (test code = 5002842656) 1.5 mg/dL 1.7-2.4 L Lab Interpretation (test code = Abnormal 36056-2) [facility]OLIC PANEL (96379)2021-11-09 20:46:34 Test Item Value Reference Range Interpretation Comments NA (test code = 140 mmol/L 135-145 9747339495) K (test code = 3.9 mmol/L 3.5-5.0 4502703570) CL (test code = 111 mmol/L 98-108 H 5058804295) CO2 TOTAL (test code = 16 mmol/L 23-31 L 9432877365) AGAP (test code = 2-16 7955913895) BUN (test code = 14 mg/dL 7-23 9302825603) GLUCOSE (test code = 189 mg/dL 70-110 H 7659713582) CREATININE (test code = 0.66 mg/dL 0.60-1.25 0719540979) TOTAL BILI (test code = 0.8 mg/dL 0.1-1.6 1790074084) CALCIUM (test code = 8.3 mg/dL 8.6-10.6 L 8999406086) T PROTEIN (test code = 6.5 g/dL 6.3-8.2 1308986885) ALBUMIN (test code = 3.3 g/dL 3.5-5.0 L 6969837042) ALK PHOS (test code = 136 U/L 34-122 H 8319302163) ALTv (test code = 18 U/L 5-50 1742-6) AST(SGOT) (test code = 26 U/L 13-40 9865519479) eGFR (test code = mL/min/1.73m2 8597100107) DIANE (test code = DIANE) Association of [...] tests). Lab Interpretation Abnormal (test code = 10126-6) [facility] WITH [id number] 20:33:30 Test Item Value Reference Range Interpretation Comments WBC (test code = See_Comment [Automated 6818-2) message] The sy stem which generated this result transmitted reference range : 4.20 - 10.70 10*3/?L. The reference range was not used to interpret this result as normal/abnormal . RBC (test code = See_Comment [Automated 622-3) message] The sy stem which generated this [...] RDW-SD (test code = 45.4 fL 38.5-51.6 69042-1) RDW-CV (test code = 14.2 % 12.1-15.4 788-0) PLT (test code = See_Comment [Automated 777-3) message] The sy stem which generated this result transmitted reference range : 150 - 328 10*3/ ?L. The reference r batsheva was not used to interpret this result as normal/abnormal . MPV (test code = 9.8 fL 9.8-13.0 55930-5) NRBC/100 WBC (test See_Comment [Automat ed code = 2004997875) message] The system which generated this result transmitted reference range : 0.0 - 10.0 /100 WBCs. The refer ence range was not u sed to interpret th is result as normal/abnormal . NRBC x10^3 (test code <0.01 See_Comment [Auto mated = 3266649342) message] The s ystem which generated this result transmitted reference range : 10*3/?L. The reference range was not used to interpret this result as normal/abnormal . GRAN MAT (NEUT) % 62.3 % (test code = 770-8) IMM GRAN % (test code 0.80 % = 5380965239) LYMPH % (test code = 25.1 % 736-9) MONO % (test code = 6.7 % 5905-5) EOS % (test code = 4.7 % 713-8) BASO % (test code = 0.4 % 706-2) GRAN MAT x10^3(ANC) 4.76 10*3/uL 1.99-6.95 (test code = 8602465186) IMM GRAN x10^3 (test 0.06 10*3/uL 0.00-0.06 code = 3321488879) LYMPH x10^3 (test code 1.92 10*3/uL 1.09-3.23 = 731-0) MONO x10^3 (test code 0.51 10*3/uL 0.36-1.02 = 742-7) EOS x10^3 (test code = 0.36 10*3/uL 0.06-0.53 711-2) BASO x10^3 (test code 0.03 10*3/uL 0.01-0.09 = 704-7) Lab Interpretation Abnormal (test code = 73419-4) [facility]2021-11-09 20:27:39 Test Item Value Reference Range Interpretation Comments POCT GLU (test code = 4632380766) 190 mg/dL 70-110 H Lab Interpretation (test code = Abnormal 49955-9) [facility] [id number] 11:52:00 Test Item Value Reference Range Interpretation Comments GLUCOSE BEDSIDE TESTING (test code = 92 mg/dL 70-110 N GLUBED) GLUCOSE BEDSIDE [id number] 08:05:00 Test Item Value Reference Range Interpretation Comments GLUCOSE BEDSIDE TESTING (test code = 62 mg/dL 70-110 L GLUBED) GLUCOSE BEDSIDE [id number] 20:40:00 Test Item Value Reference Range Interpretation Comments GLUCOSE BEDSIDE TESTING (test code 105 mg/dL 70-110 N = GLUBED) GLUCOSE BEDSIDE [id number] 17:02:00 Test Item Value Reference Range Interpretation Comments GLUCOSE BEDSIDE TESTING (test code 128 mg/dL 70-110 H = GLUBED) GLUCOSE BEDSIDE [id number] 16:37:00 Test Item Value Reference Range Interpretation Comments GLUCOSE BEDSIDE TESTING (test code 105 mg/dL 70-110 N = GLUBED) GLUCOSE BEDSIDE [id number] 08:17:00 Test Item Value Reference Range Interpretation Comments GLUCOSE BEDSIDE TESTING (test code = 88 mg/dL 70-110 N GLUBED) GLUCOSE BEDSIDE [id number] 19:45:00 Test Item Value Reference Range Interpretation Comments GLUCOSE BEDSIDE TESTING (test code 115 mg/dL 70-110 H = GLUBED) GLUCOSE BEDSIDE [id number] 18:13:00 Test Item Value Reference Range Interpretation Comments GLUCOSE BEDSIDE TESTING (test code = 74 mg/dL 70-110 N GLUBED) GLUCOSE BEDSIDE [id number] 17:29:00 Test Item Value Reference Range Interpretation Comments GLUCOSE BEDSIDE TESTING (test code = 44 mg/dL 70-110 LL GLUBED) GLUCOSE BEDSIDE [id number] 12:26:00 Test Item Value Reference Range Interpretation Comments GLUCOSE BEDSIDE TESTING (test code = 96 mg/dL 70-110 N GLUBED) GLUCOSE BEDSIDE [id number] 08:21:00 Test Item Value Reference Range Interpretation Comments GLUCOSE BEDSIDE TESTING (test code = 77 mg/dL 70-110 N GLUBED) GLUCOSE BEDSIDE [id number] 20:12:00 Test Item Value Reference Range Interpretation Comments GLUCOSE BEDSIDE TESTING (test code = 91 mg/dL 70-110 N GLUBED) GLUCOSE BEDSIDE [id number] 16:42:00 Test Item Value Reference Range Interpretation Comments GLUCOSE BEDSIDE TESTING (test code 106 mg/dL 70-110 N = GLUBED) GLUCOSE BEDSIDE [id number] 11:49:00 Test Item Value Reference Range Interpretation Comments GLUCOSE BEDSIDE TESTING (test code = 89 mg/dL 70-110 N GLUBED) GLUCOSE BEDSIDE [id number] 08:22:00 Test Item Value Reference Range Interpretation Comments GLUCOSE BEDSIDE TESTING (test code = 68 mg/dL 70-110 L GLUBED) GLUCOSE BEDSIDE [id number] 20:05:00 Test Item Value Reference Range Interpretation Comments GLUCOSE BEDSIDE TESTING (test code 137 mg/dL 70-110 H = GLUBED) GLUCOSE BEDSIDE [id number] 16:42:00 Test Item Value Reference Range Interpretation Comments GLUCOSE BEDSIDE TESTING (test code = 98 mg/dL 70-110 N GLUBED) GLUCOSE BEDSIDE [id number] 11:13:00 Test Item Value Reference Range Interpretation Comments GLUCOSE BEDSIDE TESTING (test code 118 mg/dL 70-110 H = GLUBED) GLUCOSE BEDSIDE [id number] 07:37:00 Test Item Value Reference Range Interpretation Comments GLUCOSE BEDSIDE TESTING (test code 140 mg/dL 70-110 H = GLUBED) COMPREHENSIVE METABOLIC [id number] 06:34:00 Test Item Value Reference Range Interpretation [...] TOTAL (test code = ALKP) CBC W/AUTO [id number] 06:25:00 Test Item Value Reference Range Interpretation [...] DIFF/SCN CRITERIA = MDIFF) - CT ABDOMEN W/[id number] 03:09:00 [facility] 1960 Sex: M Name: FAITH VANCE [facility] : 1960 Age/S: 60 / M [address] Unit #: [id number] Loc: [place] [address] Phys: Fede Carrera DO Acct: [id number] Dis Date: Status: ADM IN PHONE #:[phone] Exam Date: 10/31/20201919 FAX #: Reason: NAUSEA, VOMITING, DIARRHEA EXAMS: CPT: [id number] CT ABDOMEN W/CONTRAST 29663 EXAM: - CT ABDOMEN W/CONTRAST LOCATION: H61 [...] 1 Signed Report (CONTINUED) [facility]: 1960 Age/S: 60 / M [address] Unit #: [id number] Loc: [place] [address] Phys: Fede Green DO Acct: [id number] Dis Date: Status: ADM IN PHONE #: [phone] Exam Date: 10/31/20201919 FAX #: Reason: NAUSEA, VOMITING, DIARRHEA EXAMS: CPT: [id number] CT ABDOMEN W/CONTRAST 15651 <Continued> small bowel wall thickening. The appendix [...] RT(R) CTDI: DLP: Trnscb Date/Time: 11/01/2020 (308) t.SDR.TH15 Orig Print D/T: S: 11/01/2020 (311) PAGE 2Signed ReportGLUCOSE BEDSIDE [id number] 21:34:00 Test Item Value Reference Range Interpretation Comments GLUCOSE BEDSIDE TESTING (test code 161 mg/dL 70-110 H = GLUBED) GLUCOSE BEDSIDE [id number] 17:32:00 Test Item Value Reference Range Interpretation Comments GLUCOSE BEDSIDE TESTING (test code 136 mg/dL 70-110 H = GLUBED) - XR ABDOMEN 1 [id number] 12:44:00 [facility] 1960 Sex: M Name: FAITH VANCE [facility] : 1960 Age/S: 60 / M [address] Unit #: [id number] Loc: [place] [address] Phys: Fede Carrera DO Acct: [id number] Dis Date: Status: ADM IN PHONE #: [phone] Exam Date: 10/31/2020 1227 FAX #: Reason: Abdominal pain in the lower qudarants EXAMS: CPT: [id number] XR ABDOMEN 1 V 20050 Fluoro Time: DAP (Gy m2): Air Kerma [...] DO PAGE 1Signed Report Name: FAITH VANCE [facility] : 1960 Age/S: 60 / M [address] Unit #: [id number] Loc: [place] [address] Phys: Fede Carrera DO Acct: [id number] Dis Date: Status: ADM IN PHONE #: [phone] Exam Date: 10/31/2020 1227 FAX #: Reason: Abdominal pain in the lowerqudarants EXAMS: CPT: [id number] XR ABDOMEN 1 V 02790 Fluoro Time: DAP (Gy m2): Air Kerma (mGy): <C ontinued> Technologist: Cecelia Arias RT(R) Trnscb Date/Time: 10/31/2020 (7392) CadyV Orig Print D/T: S: 10/31/2020 (3423) PAGE 2 Signed Report GLUCOSE BEDSIDE [id number] 11:58:00 Test Item Value Reference Range Interpretation Comments GLUCOSE BEDSIDE TESTING (test code 105 mg/dL 70-110 N = GLUBED) GLUCOSE BEDSIDE [id number] 08:01:00 Test Item Value Reference Range Interpretation Comments GLUCOSE BEDSIDE TESTING (test code 106 mg/dL 70-110 N = GLUBED) [id number] 22:46:00 Test Item Value Reference Range Interpretation [...] yby method. Completed by Nursing: NOGLUCOSE BEDSIDE [id number] 21:55:00 Test Item Value Reference Range Interpretation Comments GLUCOSE BEDSIDE TESTING (test code 119 mg/dL 70-110 H = GLUBED) [id number] 19:33:00 Test Item Value Reference Range Interpretation [...] method. Completed by Nursing: NOCoronavirus 2019 nCoV [id number] 18:46:00 Test Item Value Reference Range Interpretation Comments Coronavirus 2019 nCoV Negative Negative Per ma nufacturer, Bedside (test code = negativ e results should [id number]) be treated aspresumptive a nd, if inconsistent [...] with COVID-19. Spec Comments: NNT PRO-BRAIN NATRIURETIC [id number] 15:51:00 Test Item Value Reference Range Interpretation Comments NT PRO-BRAIN NATRIURETIC PEPTI 6079 PG/ML 0-100 H (test code = PROBNP) Completed by Nursing: [id number] 15:51:00 Test Item Value Reference Range Interpretation [...] yby method. Completed by Nursing: NOBASIC METABOLIC [id number] 15:51:00 Test Item Value Reference Range Interpretation [...] Completed by Nursing: NO- XR CHEST 1 [id number] 15:42:00 [facility] : 1960 Sex: M Name: FAITH VANCE [facility] : 1960 Age/S: 60 / M [address] Unit #: [id number] Loc: [place] [address] Phys: Todd Jacobo MD Acct: [id number] Dis Date: Status: PRE ER PHONE #: [phone] Exam Date: 10/30/2020 1524 FAX #: Reason: chest pain EXAMS: CPT: [id number] XR CHEST 1V 24569 Fluoro Time: DAP (Gy m2): Air Kerma [...] PAGE 1 Signed Report Name: FAITH VANCE [facility] Cristofer : 1960 Age/S: 60 / M [address] Unit #: [id number] Loc: [place] [address] Phys: Todd Jacobo MD Acct: [id number] Dis Date: Status: PRE ER PHONE #: [phone] Exam Date: 10/30/2020 1524 FAX #: Reason: chest pain EXAMS: CPT: [id number] XR CHEST 1 V 07103 Fluoro Time: DAP (Gy m2): Air Kerma (mGy): <Continued> Technologist: Kim Andrews, RT(R)(CT) Trnscb Date/Time: 10/30/2020 (1542) t.KATHRYNR.RB24 Orig Print D/T: S: 10/30/2020 (2555) PAGE 2 Signed ReportCBC W/O [id number] 15:31:00 Test Item Value Reference Range Interpretation [...] 9.70 fL 7.0-9.6 H MPV) BASIC METABOLIC [id number] 21:42:00 Test Item Value Reference Range Interpretation [...] 9.6 mg/dL 8.0-10.5 N CA) HEPATIC FUNCTION [id number] 21:42:00 Test Item Value Reference Range Interpretation [...] 114 IUnit/L 20-125 N code = ALKP) [id number] 21:42:00 Test Item Value Reference Range Interpretation Comments LIPASE (test code = LIP) 70 U/L 13-57 H [id number] 21:42:00 Test Item Value Reference Range Interpretation [...] by method. UA RFLX MICR CULT IF [id number] 21:37:00 Test Item Value Reference Range Interpretation [...] INDWELLING CATH (CEDENO)Cath Status: Under 72 hoursPROTHROMBIN [id number] 21:35:00 Test Item Value Reference Range Interpretation [...] (to prevent recurrent infar ct). THROMBOPLASTIN TIME [id number] 21:35:00 Test Item Value Reference Range Interpretation Comments THROMBOPLASTIN TIME 41.7 Seconds 25.0-39.5 H Therape utic Range: PARTIAL (test code = 50.4 - 88.3 Seconds PTT) Effective 09/04/2018 CBC W/AUTO [id number] 21:29:00 Test Item Value Reference Range Interpretation [...] = MDIFF) - CT ABD PELVIS W/O [id number] 20:49:00 [facility] : 1960 Sex: M Name: FAITH VANCE [facility] [place] : 1960 Age/S: 60 / M [address] [place] [address] Unit #: [id number] Loc: [place] [address] Phys: Gisel Eugene [employer]PER[employer] Acct: [id number] Dis Date: Status: REG ERPHONE #: [phone] Exam Date: 08/23/20202024 FAX #: [phone] Reason: DIFFUSE ABDOMINAL PAIN EXAMS: CPT CODE: [id number] CT ABD PELVIS W/O CONT 27168 Clinical indication: Diffuse abdominal pain.Contrast - No [...] 1 Signed Report (CONTINUED) Name: FAITH VANCE [facility] Jonn Mejia : 1960 Age/S: 60 / M [address] [place] [address] Unit #: [id number] Loc: [place] [address] Phys: Gisel Eugene Acct: [id number] Dis Date: Status: REG ER PHONE #: [phone] Exam Date: 08/23/20202024 FAX #: [phone] Reason: DIFFUSE ABDOMINAL PAIN EXAMS: CPT CODE: [id number] CT ABD PELVIS W/O CONT 33429 <Continued> Peritoneum/Other: No extraluminal air. No extraluminal [...] Gisel Eugene Technologist:RT Fanta(R)(CT) CTDI: DLP: Trnscb Date/Time:08/23/2020 (2048) t.KATHRYNR.VB9 Orig Print D/T: S: 08/23/2020 (2051) PAGE 2 Signed ReportBASIC METABOLIC [id number] 07:51:00 Test Item Value Reference Range Interpretation [...] >3 months. [Automated mess age] The system [employer] generated this result transmitted ref erence range: >=60. Th e reference range was not used to int erpret this result as normal/abnormal . CREATININE (test 1.20 mg/dL 0.7-1.3 N code = CREAT) BUN/CREATININE RATIO 22.1 10-20 H (test code = BUN/CREA) CALCIUM (test code = 8.6 mg/dL 8.5-10.1 N CA) [id number] 16:58:00 Test Item Value Reference Range Interpretation Comments GLUBED (test code = 159 MG/DL 70-110 H Performe d by certified GLUBED) planer operator at [facility] [id number] 11:58:00 Test Item Value Reference Range Interpretation Comments GLUBED (test code = 149 MG/DL 70-110 H Performe d by certified GLUBED) planer operator at [facility] BASIC METABOLIC [id number] 08:00:00 Test Item Value Reference Range Interpretation [...] 9.9 mg/dL 8.0-10.5 N CA) CBC W/AUTO [id number] 07:08:00 Test Item Value Reference Range Interpretation [...] DIFF REQUIRED (test code NO = MDIFF) [id number] 05:21:00 Test Item Value Reference Range Interpretation Comments GLUBED (test code = 150 MG/DL 70-110 H Performe d by certified GLUBED) planer operator at [facility] [id number] 21:13:00 Test Item Value Reference Range Interpretation Comments GLUBED (test code = 129 MG/DL 70-110 H Performe d by certified GLUBED) planer operator at [facility] [id number] 16:48:00 Test Item Value Reference Range Interpretation Comments GLUBED (test code = 116 MG/DL 70-110 H Performe d by certified GLUBED) planer operator at [facility] [id number] 12:18:00 Test Item Value Reference Range Interpretation Comments GLUBED (test code = 136 MG/DL 70-110 H Performe d by certified GLUBED) planer operator at [facility] [id number] 12:18:00 Test Item Value Reference Range Interpretation Comments GLUBED (test code = 151 MG/DL 70-110 H Performe d by certified GLUBED) planer operator at [facility] CBC W/AUTO [id number] 07:32:00 Test Item Value Reference Range Interpretation [...] (test code NO = MDIFF) BASIC METABOLIC [id number] 07:29:00 Test Item Value Reference Range Interpretation [...] code = 9.0 mg/dL 8.0-10.5 N CA) [id number] 05:19:00 Test Item Value Reference Range Interpretation Comments GLUBED (test code = 135 MG/DL 70-110 H Performe d by certified GLUBED) planer operator at [facility] [id number] 20:31:00 Test Item Value Reference Range Interpretation Comments GLUBED (test code = 189 MG/DL 70-110 H Performe d by certified GLUBED) planer operator at [facility] [id number] 17:41:00 Test Item Value Reference Range Interpretation Comments GLUBED (test code = 140 MG/DL 70-110 H Performe d by certified GLUBED) planer operator at [facility] - CTA CHEST FOR [id number] 13:48:00 [facility]: 1960 Sex: M Name: FAITH VANCE [facility]: 1960 Age/S: 60 / M [address] [place] [address] Unit #: [id number] Loc: [place] [address] Phys: Gina Gonzalez YAYA Acct: [id number] Dis Date: Status: ADM IN PHONE #: [phone] Exam Date: 08/12/2020 0912 FAX #: [phone] Reason: CP, elevated D-dimer EXAMS: CPT CODE: [id number] [place] [address] PROCEDURE: CTA CHEST INDICATION: CP, elevated D-dimer; [...] 1 Signed Report (CONTINUED) Name: FAITH VANCE [facility] : 1960 Age/S: 60 / M [address] [place] [address] Unit #: [id number] Loc: [place] [address] Phys: Gina Gonzalez NP Acct: [id number] Dis Date: Status: ADM IN PHONE #: [phone] Exam Date: 08/12/2020911 FAX #: [phone] Reason: CP, elevated D-dimer EXAMS: CPT CODE: [id number] [place] [address] <Continued> contrast enhancement. No acute abnormality demonstrated. MUSCULOSKELETAL: Healed median sternotomy. No acute skeletal abnormality. IMPRESSION: 1. Negative for pulmonary embolic disease within limitations noted. 2. Atherosclerosis. 3. Coronary arterial calcifications with prior coronary arterial stents and CABG.4. Interstitial edema. No consolidation. 5. Small bilateral pleural effusions. SL: [id number] at 1348 Reported and signed by: Christiano Piña M.D. CC: Johnie Montanez MD; Gina Gonzalez NP; Nika Martin MD Technolo gist:Kate Camacho, RT(R)(CT) CTDI: DLP: Trnscb Date/Time: 08/12/2020 (1348) tOBINNA Orig Print D/T: S: 08/12/2020 (7585) PAGE 2 Signed ReportGLUBED 2020-08-12 11:38:00 Test Item Value Reference Range Interpretation Comments GLUBED (test code = 146 MG/DL 70-110 H Performe d by certified GLUBED) planer operator at [facility] CBC W/AUTO [id number] 09:17:00 Test Item Value Reference Range Interpretation [...] (test code NO = MDIFF) BASIC METABOLIC [id number] 08:28:00 Test Item Value Reference Range Interpretation [...] code = 8.3 mg/dL 8.0-10.5 N CA) [id number] 08:28:00 Test Item Value Reference Range Interpretation Comments PHOSPHOROUS (test code = PHOS) 3.6 MG/DL 2.5-4.9 N [id number] 08:28:00 Test Item Value Reference Range Interpretation Comments MAGNESIUM (test code = MAG) 1.94 mg/dL 1.80-2.40 N [id number] 07:16:00 Test Item Value Reference Range Interpretation Comments GLUBED (test code = 170 MG/DL 70-110 H Performe d by certified GLUBED) planer operator at [facility] [id number] 07:16:00 Test Item Value Reference Range Interpretation Comments GLUBED (test code = 137 MG/DL 70-110 H Performe d by certified GLUBED) planer operator at [facility] [id number] 17:01:00 Test Item Value Reference Range Interpretation Comments GLUBED (test code = 88 MG/DL 70-110 N Performe d by certified GLUBED) planer operator at [facility] [id number]-[id number] 16:56:00 Test Item Value Reference Range Interpretation Comments ACT-ISTAT (test code 186 SEC 74-137 H Perform ed by certified = ACTI) planer operator at [facility] [id number] 15:03:00 Test Item Value Reference Range Interpretation Comments ACT-ISTAT (test code 235 SEC 74-137 H Perform ed by certified = ACTI) planer operator at [facility] [id number] 11:33:00 Test Item Value Reference Range Interpretation Comments GLUBED (test code = 97 MG/DL 70-110 N Performe d by certified GLUBED) planer operator at [facility] [id number] 06:54:00 Test Item Value Reference Range Interpretation Comments GLUBED (test code = 136 MG/DL 70-110 H Performe d by certified GLUBED) planer operator at [facility] BASIC METABOLIC [id number] 06:00:00 Test Item Value Reference Range Interpretation [...] COMMENTS: To be done morning of Heart RkbsYXXUSFDXZAB5119-40-96 06:00:00 Test Item Value Reference Range Interpretation Comments PHOSPHOROUS (test code = PHOS) 4.1 MG/DL 2.5-4.9 N COMMENTS: To be done morning of Heart MmkcMMIPLOIHH2390-12-24 06:00:00 Test Item Value Reference Range Interpretation Comments MAGNESIUM (test code = MAG) 1.74 mg/dL 1.80-2.40 L COMMENTS: To be done morning of Heart CathTHROMBOPLASTIN TIME [id number] 05:55:00 Test Item Value Reference Range Interpretation Comments THROMBOPLASTIN TIME 37.9 Seconds 25.0-39.5 N Therape utic Range: PARTIAL (test code = 50.4 - 88.3 Seconds PTT) Effective 09/04/2018 CBC W/AUTO [id number] 05:44:00 Test Item Value Reference Range Interpretation [...] COMMENTS: To be done morning of Heart JqrmJFFSJX3788-27-29 05:44:00 Test Item Value Reference Range Interpretation Comments GLUBED (test code = 92 MG/DL 70-110 N Performe d by certified GLUBED) planer operator at [facility] HGBA1C%2020-08-10 17:22:00 Test Item Value Reference Range Interpretation Comments HGBA1C% (test code = HGBA1C%) 6.6 %A1C 4.8-6.0 H [id number] 17:17:00 Test Item Value Reference Range Interpretation Comments GLUBED (test code = 118 MG/DL 70-110 H Performe d by certified GLUBED) planer operator at [facility] TSH REFLEX TO [id number] 15:37:00 Test Item Value Reference Range Interpretation Comments TSH REFLEX TO FT4 (test code = 3.19 IU/mL 0.42-5.47 N TSHREFLEX) [id number] 15:37:00 Test Item Value Reference Range Interpretation [...] y by method. COVID 19 Asymptomatic IH [id number] 11:35:00 Test Item Value Reference Range Interpretation [...] y tests. COMMENTS: If not done this mkrbgkqkyEWHXSUIM-[id number] 11:31:00 Test Item Value Reference Range Interpretation [...] titative results may babak y by method. [id number] 11:28:00 Test Item Value Reference Range Interpretation [...] to interpret this result as normal/abnormal . 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 [facility] B-TYPE NATRIURETIC [id number] 08:19:00 Test Item Value Reference Range Interpretation Comments B-TYPE NATRIURETIC PEPTIDE (test 508.0 PG/ML 0-100 H code = BNP) BASIC METABOLIC [id number] 08:11:00 Test Item Value Reference Range Interpretation [...] 9.1 mg/dL 8.0-10.5 N CA) HEPATIC FUNCTION [id number] 08:11:00 Test Item Value Reference Range Interpretation [...] 174 IUnit/L 20-125 H code = ALKP) [id number] 08:11:00 Test Item Value Reference Range Interpretation Comments MAGNESIUM (test code = MAG) 1.80 mg/dL 1.80-2.40 N [id number] 08:11:00 Test Item Value Reference Range Interpretation [...] may babak y by method. BASIC METABOLIC [id number] 08:09:00 Test Item Value Reference Range Interpretation [...] code = CA) mg/dL 8.0-10.5 HEPATIC FUNCTION [id number] 08:09:00 Test Item Value Reference Range Interpretation Comments TOTAL PROTEIN (test code = PROT) g/dL 6.4-8.2 ALBUMIN (test code = ALB) g/dL 3.4-5.0 BILIRUBIN TOTAL (test code = BILT) mg/dL 0.0-1.0 BILIRUBIN DIRECT (test code = BILD) MG/DL 0.0-0.30 SGOT/AST (test code = AST) IUnit/L 15-37 SGPT/ALT (test code = ALT) IUnit/L 30-65 ALKALINE PHOSPHATASE TOTAL (test IUnit/L 20-125 code = ALKP) [id number] 08:09:00 Test Item Value Reference Range Interpretation Comments MAGNESIUM (test code = MAG) mg/dL 1.80-2.40 [id number] 08:09:00 Test Item Value Reference Range Interpretation [...] results may babak y by method. PROTHROMBIN [id number] 08:06:00 Test Item Value Reference Range Interpretation [...] (to prevent recurrent infar ct). THROMBOPLASTIN TIME [id number] 08:06:00 Test Item Value Reference Range Interpretation Comments THROMBOPLASTIN TIME 44.5 Seconds 25.0-39.5 H Therape utic Range: PARTIAL (test code = 50.4 - 88.3 Seconds PTT) Effective 09/04/2018 CBC W/AUTO [id number] 07:58:00 Test Item Value Reference Range Interpretation [...] NO = TANYA) - XR CHEST 1 [id number] 07:57:00 [facility] 1960 Sex: M FAX: Todd Jacobo MD [phone] [place]: St: REG FAX: Martínez Dash NP [phone] Name: FAITH VANCE [facility] : 1960 Age/S: 60/M [address] [place] [address] Unit #: [id number] Loc: [place] [address] Phys: Martínez Dash NP Acct: [id number] Dis Date: Status: REG ER PHONE #: [phone] Exam Date: 08/10/2020 0753 FAX #: [phone] Reason: Chest Pain EXAMS: CPT CODE: [id number] XR CHEST 1 V 98210 Chest single view 08/10/2020 HISTORY: Chest pain. Comparison is made to 05/21/2018 FINDINGS: Pacemaker and midline sternotomy wires are stable. The lungs are hypoinflated. No consolidation or pleural effusion is present. No vascular congestion or interstitial edema is present. Heart size is mildly enlarged. Aorta is unchanged. IMPRESSION: Hypoinflated lungs. No acute cardiopulmonary process. SL:[id number] at 0757 Reported and signed by: Khai Kruse M.D. CC: Todd Jacobo MD; Martínez Dash NP Technologist: RT Ann(R) Trnscrd Date/Time/By: 08/10/2020 (0757) : By: [email or web address] Orig Print D/T: S: 08/10/2020 (08) PAGE 1 Signed Report COMPREHENSIVE METABOLIC [id number] 18:02:00 Test Item Value Reference Range Interpretation [...] 50-136 H TOTAL (test code = ALKP) [id number] 18:02:00 Test Item Value Reference Range Interpretation Comments AMYLASE (test code = SERGIO) 82 Unit/L 25-115 N [id number] 18:02:00 Test Item Value Reference Range Interpretation Comments LIPASE (test code = LIP) 185 Unit/L 114-286 N COMPREHENSIVE METABOLIC [id number] 17:56:00 Test Item Value Reference Range Interpretation [...] TOTAL Unit/L 50-136 (test code = ALKP) [id number] 17:56:00 Test Item Value Reference Range Interpretation Comments AMYLASE (test code = SERGIO) Unit/L 25-115 [id number] 17:56:00 Test Item Value Reference Range Interpretation Comments LIPASE (test code = LIP) 185 Unit/L 114-286 N CBC W/AUTO [id number] 17:46:00 Test Item Value Reference Range Interpretation [...] CRITERIA MDIFF) - CT ABD PELVIS W/O [id number] 17:46:00 Name: FAITH VANCE [facility] : 1960 Age/S: 58 / M [address] [place] Unit #: [id number] Loc: [place] [address] Phys: Nila Chester MD Acct: [id number] Dis Date: Status: REG ER PHONE #: [phone] Exam Date: 01/03/2019 1737 FAX #: Reason: llq EXAMS: CPT: [id number] CT ABDPELVIS W/O CONT 76244 Location of dictation: B2 CT abdomen and [...] VANCE : 1960 Age/S: 58 / M [address] [place] Unit #: [id number] Loc: [place] [address] Phys: Nila Chester MD Acct: [id number] Dis Date: Status: REG ER PHONE #: [phone] Exam Date: 01/03/2019 1733 FAX #: Reason: llq EXAMS: CPT: [id number] CT ABD PELVIS W/O CONT 02106 <Continued> at 1746 Reported and signed by: Renuka Willett M.D. CC: Nila Chester MD Technologist:Tavon Jurado, RT(R)(CT)(MRI) CTDI: DLP: Trnscb Date/Time: 01/03/2019 (1996) [email or web address] Orig Print D/T: S: 01/03/2019 (6535) PAGE 2 Signed ReportBedside [id number] 11:47:00 Test Item Value Reference Range Interpretation Comments Bedside Glucose (test code = 44576-8) 155 70-120 H Meter ID: [id number] Scott and [facility] Planoodium [id number] 08:31:00 Test Item Value Reference Range Interpretation Comments Sodium Level (test code = 2951-2) 139 136-145 [facility] FallsPotassium Nakbs4697-11-04 08:31:00 Test Item Value Reference Range Interpretation Comments Potassium Level (test code = 2823-3) 4.0 3.5-5.1 [facility] FallsChloride [id number] 08:31:00 Test Item Value Reference Range Interpretation Comments Chloride Level (test code = 2075-0) 106 98-107 [facility] FallsCarbon Dioxide [id number] 08:31:00 Test Item Value Reference Range Interpretation Comments Carbon Dioxide Level (test code = 25 -29 8-9) [facility] FallsAnion [id number] 08:31:00 Test Item Value Reference Range Interpretation Comments Anion Gap (test code = 76335-1) 12.0 8-16 [facility] FallsBlood Urea [id number] 08:31:00 Test Item Value Reference Range Interpretation Comments Blood Urea Nitrogen (test code = 12-14 3094-0) [facility] FallsCreatinine2018-06-08 08:31:00 Test Item Value Reference Range Interpretation Comments Creatinine (test code = 2160-0) 0.72 0.72-1.25 [facility] FallsBUN/Creatinine Zwqqk1147-03-29 08:31:00 Test Item Value Reference Range Interpretation Comments BUN/Creatinine Ratio (test code = 10 625 3097-3) [facility] FallsEstimat Glomerular Filtration [id number] 08:31:00 Test Item Value Reference Range Interpretation Comments Estimat Glomerular Filtration Rate 60- >60 (test code = 56964-3) Ranges were taken from the National Kidney Disease Education Program and the National Kidney Foundation literature.Reference ranges:60 or greater: Tocupu73- 59 (for 3 consecutive months): Chronic kidneydisease 15 or less: Kidney failure [facility] FallsGlucose [id number] 08:31:00 Test Item Value Reference Range Interpretation Comments Glucose Level (test code = IQO8854) 195 74-118 H [facility] FallsCalcium Iibmn6690-04-88 08:31:00 Test Item Value Reference Range Interpretation Comments Calcium Level (test code = 52087-6) 9.0 8.4-10.2 [facility] FallsWhite Blood Adfej1303-82-81 08:12:00 Test Item Value Reference Range Interpretation Comments White Blood Count (test code = 6690-2) 6.06 4.8-10.8 [facility] FallsRed Blood [id number] 08:12:00 Test Item Value Reference Range Interpretation Comments Red Blood Count (test code = 789-8) 4.22 4.3-5.7 L [facility] FallsHemoglobin2018-06-08 08:12:00 Test Item Value Reference Range Interpretation Comments Hemoglobin (test code = 78601-2) 12.5 14.0-18.0 L [facility] FallsHematocrit2018-06-08 08:12:00 Test Item Value Reference Range Interpretation Comments Hematocrit (test code = 4544-3) 36.2 38.2-49.6 L [facility] FallsMean Corpuscular Wbyaex5376-10-60 08:12:00 Test Item Value Reference Range Interpretation Comments Mean Corpuscular Volume (test code = 85.8 81-99 787-2) [facility] FallsMean Corpuscular Qgopaqfmdk5133-81-85 08:12:00 Test Item Value Reference Range Interpretation Comments Mean Corpuscular Hemoglobin (test code 29.6 28-32 = 785-6) [facility] FallsMean Corpuscular Hemoglobin Slbtiyg1770-65-43 08:12:00 Test Item Value Reference Range Interpretation Comments Mean Corpuscular Hemoglobin Concent 34.5 31-35 (test code = 786-4) [facility] FallsRed Cell Distribution [id number] 08:12:00 Test Item Value Reference Range Interpretation Comments Red Cell Distribution Width (test code 14.2 11.7-14.4 = 53453-5) [facility] FallsPlatelet Axhhk5313-63-12 08:12:00 Test Item Value Reference Range Interpretation Comments Platelet Count (test code = 777-3) 263 140-360 [facility] FallsNeutrophils (%) (Auto)2017-10-27 08:12:00 Test Item Value Reference Range Interpretation Comments Neutrophils (%) (Auto) (test code = 51.2 38.7-80.0 35955-1) [facility] FallsLymphocytes (%) (Auto)2017-10-27 08:12:00 Test Item Value Reference Range Interpretation Comments Lymphocytes (%) (Auto) (test code = 33.7 18.0-39.1 736-9) [facility] FallsMonocytes (%) (Auto)2017-10-27 08:12:00 Test Item Value Reference Range Interpretation Comments Monocytes (%) (Auto) (test code = 9.1 4.4-11.3 5905-5) [facility] FallsEosinophils (%) (Auto)2017-10-27 08:12:00 Test Item Value Reference Range Interpretation Comments Eosinophils (%) (Auto) (test code = 4.8 0.0-6.0 713-8) [facility] FallsBasophils (%) (Auto)2017-10-27 08:12:00 Test Item Value Reference Range Interpretation Comments Basophils (%) (Auto) (test code = 0.7 0.0-1.0 706-2) [facility] FallsIM GRANULOCYTES %2017-10-27 08:12:00 Test Item Value Reference Range Interpretation Comments IM GRANULOCYTES % (test code = IM 0.5 0.0-1.0 GRANULOCYTES %) [facility] FallsNeutrophils # (Auto)2017-10-27 08:12:00 Test Item Value Reference Range Interpretation Comments Neutrophils # (Auto) (test code = 3.1 2.1-6.9 751-8) [facility] FallsLymphocytes # (Auto)2017-10-27 08:12:00 Test Item Value Reference Range Interpretation Comments Lymphocytes # (Auto) (test code = 2.0 1.0-3.2 61579-4) [facility] FallsMonocytes # (Auto)2017-10-27 08:12:00 Test Item Value Reference Range Interpretation Comments Monocytes # (Auto) (test code = 742-7) 0.6 0.2-0.8 [facility] FallsEosinophils # (Auto)2017-10-27 08:12:00 Test Item Value Reference Range Interpretation Comments Eosinophils # (Auto) (test code = 0.3 0.0-0.4 711-2) [facility] FallsBasophils # (Auto)2017-10-27 08:12:00 Test Item Value Reference Range Interpretation Comments Basophils # (Auto) (test code = 704-7) 0.0 0.0-0.1 [facility] FallsAbsolute Immature Granulocyte ([id number] 08:12:00 Test Item Value Reference Range Interpretation Comments Absolute Immature Granulocyte (auto 0.03 0-0.1 (test code = Absolute Immature Granulocyte (auto) [facility] FallsCreatine Kinase [id number] 15:14:00 Test Item Value Reference Range Interpretation Comments Creatine Kinase MB (test code = 3.90 0-5.0 42473-0) [facility] FallsTroponin [id number] 15:14:00 Test Item Value Reference Range Interpretation Comments Troponin I (test code = ILQ4620) 0.054 0-0.300 [facility] FallsCreatine Mfeegw6438-54-03 15:07:00 Test Item Value Reference Range Interpretation Comments Creatine Kinase (test code = 2157-6) 297 30-200 H [facility] FallsHemoglobin A1c [id number] 08:04:00 Test Item Value Reference Range Interpretation Comments Hemoglobin A1c Percent (test code = 12.6 4.0-7.0 H Hemoglobin A1c Percent) [facility] FallsTriglycerides [id number] 06:57:00 Test Item Value Reference Range Interpretation Comments Triglycerides Level (test code = 200 0-149 H 2571-8) [facility] FallsCholesterol Pezai0429-73-44 06:57:00 Test Item Value Reference Range Interpretation Comments Cholesterol Level (test code = 2093-3) 239 0-199 H Less than 200 mg/dL Low Gpnw661 - 239 mg/dL Borderline Eotc661 mg/dl and greater High RiskB[facility] Marble FallsLDL Gguyigxtxnp5367-17-01 06:57:00 Test Item Value Reference Range Interpretation Comments LDL Cholesterol (test code = 2089-1) 164 60-130 H [facility] Mar[facility] FallsHDL Amtosjlssur0243-98-76 06:57:00 Test Item Value Reference Range Interpretation Comments HDL Cholesterol (test code = 2085-9) 35 40-60 L [facility] FallsCholesterol/HDL Jdqmi3532-46-68 06:57:00 Test Item Value Reference Range Interpretation Comments Cholesterol/HDL Ratio (test code = 6.8 3.9-4.7 H 9830-1) [facility] FallsUrine Opiates [id number] 16:18:00 Test Item Value Reference Range Interpretation Comments Urine Opiates Screen (test code = NEGATIVE NEGATIVE 63950-3) [facility] FallsUrine Barbiturates [id number] 16:18:00 Test Item Value Reference Range Interpretation Comments Urine Barbiturates Screen (test code NEGATIVE NEGATIVE = 479597203) [facility] FallsUrine Phencyclidine Nnlxcd7374-10-70 16:18:00 Test Item Value Reference Range Interpretation Comments Urine Phencyclidine Screen (test NEGATIVE NEGATIVE code = 28747-3) [facility] FallsUrine Amphetamines Ygszsq6761-29-79 16:18:00 Test Item Value Reference Range Interpretation Comments Urine Amphetamines Screen (test code NEGATIVE NEGATIVE = 06680-4) [facility] FallsUrine Methamphetamines [id number] 16:18:00 Test Item Value Reference Range Interpretation Comments Urine Methamphetamines Screen (test NEGATIVE NEGATIVE code = Urine Methamphetamines Screen) [facility] FallsUrine Benzodiazepines [id number] 16:18:00 Test Item Value Reference Range Interpretation Comments Urine Benzodiazepines Screen (test NEGATIVE NEGATIVE code = 68530-4) [facility] FallsUrine Cocaine Kbjqgt1174-34-20 16:18:00 Test Item Value Reference Range Interpretation Comments Urine Cocaine Screen (test code = NEGATIVE NEGATIVE 3398-5) [facility] FallsUrine Cannabinoids [id number] 16:18:00 Test Item Value Reference Range Interpretation Comments Urine Cannabinoids Screen (test code NEGATIVE NEGATIVE = 05186-9) THESE RESULTS ARE FOR MEDICAL TREATMENT ONLYTHIS REPORT CONTAINS UNCONFIRMED SCREENING RESULTS*POSITIVE RESULTS WILL BE CONFIRMED BY REFERENCE LAB UPON REQUEST CUT-OFFDRUG CLASS CONCENTRATION ng/mLAmphetamines 1000Methamphetamines 1000Cocaine 300Opiate 300Phencyclidine 25Cannabinoid 50Barbiturates 300Benzodiazepine 300Methadone 300[facility] FallsUrine Methadone [id number] 16:18:00 Test Item Value Reference Range Interpretation Comments Urine Methadone Screen (test code = NEGATIVE NEGATIVE 08214-9) THESE RESULTS ARE FOR MEDICAL TREATMENT ONLYTHIS REPORT CONTAINS UNCONFIRMED SCREENING RESULTS*POSITIVE RESULTS WILL BE CONFIRMED BY REFERENCE LAB UPON REQUEST CUT-OFFDRUG CLASS CONCENTRATION ng/mLAmphetamines 1000Methamphetamines 1000Cocaine Metabolite 300Opiate 300Phencyclidine 83Npdkbtizrzj55Vievqvhacsot 300Benzodiazepine 300Methadone 300[facility] FallsProthrombin [id number] 14:13:00 Test Item Value Reference Range Interpretation Comments Prothrombin Time (test code = 5902-2) 13.6 11.9-14.5 [facility] FallsProthromb Time International [id number] 14:13:00 Test Item Value Reference Range Interpretation Comments Prothromb Time International Ratio 1.13 (test code = 6301-6) Oral Anticoagulant Therapy INR Values:1. Low Intensity Therapy 1.5 - 2.02. Moderate Intensity Therapy 2.0 - 3.03. High Intensity Therapy(1) 2.5 - 3.54. High Intensity Therapy(2) 3.0 - 4.05. Panic ValueINR > 5.0[facility] FallsActivated Partial Thromboplast [id number] 14:13:00 Test Item Value Reference Range Interpretation Comments Activated Partial Thromboplast Time 27.6 23.8-35.5 (test code = 12611-4) [facility] FallsTotal Nrgsgvuzg8861-09-62 14:10:00 Test Item Value Reference Range Interpretation Comments Total Bilirubin (test code = 1975-2) 0.6 0.2-1.2 [facility] FallsAspartate Amino Transf (AST/SGOT)2017-10-23 14:10:00 Test Item Value Reference Range Interpretation Comments Aspartate Amino Transf (AST/SGOT) (test 36 5-34 H code = Aspartate Amino Transf (AST/SGOT)) [facility] FallsAlanine Aminotransferase (ALT/SGPT)2017-10-23 14:10:00 Test Item Value Reference Range Interpretation Comments Alanine Aminotransferase (ALT/SGPT) 34 0-55 (test code = 1742-6) [facility] FallsTotal Oirgxjq5021-04-35 14:10:00 Test Item Value Reference Range Interpretation Comments Total Protein (test code = 2885-2) 7.3 6.5-8.1 [facility] FallsAlbumin2018-06-04 14:10:00 Test Item Value Reference Range Interpretation Comments Albumin (test code = 1751-7) 4.0 3.5-5.0 [facility] FallsGlobulin2018-06-04 14:10:00 Test Item Value Reference Range Interpretation Comments Globulin (test code = 92792-2) 3.3 2.3-3.5 [facility] FallsAlbumin/Globulin Frard5247-78-84 14:10:00 Test Item Value Reference Range Interpretation Comments Albumin/Globulin Ratio (test code = 1.2 0.8-2.0 1759-0) [facility] FallsAlkaline Hhpmmyjxcyo0267-10-66 14:10:00 Test Item Value Reference Range Interpretation Comments Alkaline Phosphatase (test code = 109 40-150 6768-6) [facility] FallsB-Type Natriuretic Kebyehd8911-25-72 14:10:00 Test Item Value Reference Range Interpretation Comments B-Type Natriuretic Peptide (test code = 92.8 0-100 25504-9) [facility] FallsAmylase Duggk5406-57-96 14:10:00 Test Item Value Reference Range Interpretation Comments Amylase Level (test code = 1798-8) 126 25-125 H [facility] FallsLipase2018-06-04 14:10:00 Test Item Value Reference Range Interpretation Comments Lipase (test code = 3040-3) 98 8-78 H [facility] Marble FallsD-Dimer Quantitative (PE/DVT)2017-10-23 14:02:00 Test Item Value Reference Range Interpretation Comments D-Dimer Quantitative (PE/DVT) (test 0.49 0.00-0.45 H code = 16386-0) [facility] FallsDirect Pgrzabntq0311-59-37 13:47:00 Test Item Value Reference Range Interpretation Comments Direct Bilirubin (test code = 28867-1) 0.2 0.0-5.0 [facility] FallsMagnesium Pmzjc9619-41-77 06:52:00 Test Item Value Reference Range Interpretation Comments Magnesium Level (test code = 71735-9) 1.5 1.3-2.1 [facility] FallsUrine [id number] 05:09:00 Test Item Value Reference Range Interpretation Comments Urine WBC (test code = 5821-4) NONE 0-5 [facility] FallsUrine [id number] 05:09:00 Test Item Value Reference Range Interpretation Comments Urine RBC (test code = 33429-8) NONE 0-5 [facility] FallsUrine [id number] 05:09:00 Test Item Value Reference Range Interpretation Comments Urine Bacteria (test code = 15555-5) NONE NONE [facility] Epithelial [id number] 05:09:00 Test Item Value Reference Range Interpretation Comments Urine Epithelial Cells (test code = NONE NONE 39420-7) [facility] [id number] 04:46:00 Test Item Value Reference Range Interpretation Comments Urine Color (test code = 5778-6) YELLOW YELLOW [facility] [id number] 04:46:00 Test Item Value Reference Range Interpretation Comments Urine Clarity (test code = 08002-9) CLEAR CLEAR [facility] Specific [id number] 04:46:00 Test Item Value Reference Range Interpretation Comments Urine Specific [place] (test code = 1.010 1.010-1.025 5811-5) [facility] [id number] 04:46:00 Test Item Value Reference Range Interpretation Comments Urine pH (test code = 26967-7) 8 5-7 H [facility] Leukocyte [id number] 04:46:00 Test Item Value Reference Range Interpretation Comments Urine Leukocyte Esterase (test code NEGATIVE NEGATIVE = 5799-2) [facility] [id number] 04:46:00 Test Item Value Reference Range Interpretation Comments Urine Nitrite (test code = 98678-8) NEGATIVE NEGATIVE [facility] [id number] 04:46:00 Test Item Value Reference Range Interpretation Comments Urine Protein (test code = 5804-0) NEGATIVE NEGATIVE [facility] Glucose (UA)2017-03-05 04:46:00 Test Item Value Reference Range Interpretation Comments Urine Glucose (UA) (test code = NEGATIVE NEGATIVE 2349-9) [facility] [id number] 04:46:00 Test Item Value Reference Range Interpretation Comments Urine Ketones (test code = 18583-5) NEGATIVE NEGATIVE [facility] [id number] 04:46:00 Test Item Value Reference Range Interpretation Comments Urine Urobilinogen (test code = 0.2 0.2-1 49311-2) [facility] [id number] 04:46:00 Test Item Value Reference Range Interpretation Comments Urine Bilirubin (test code = 1978-6) NEGATIVE NEGATIVE [facility] [id number] 04:46:00 Test Item Value Reference Range Interpretation Comments Urine Blood (test code = 21240-4) 2+ NEGATIVE H [facility] [place] [place] [address] PatientName: FAITH VANCE MR #: [id number] : 1960 Age/Sex: 57/M Req #: [id number] [facility] Physician: ALEXIS COX MD Ordered by: ALEXIS COX MD Report #: [id number] Location: [facility] Room/Bed: [place] [address] Procedure: [id number] CT/CTA BRAIN Exam Date: 10/24/17 Exam Time: [...] COPY TO: ALEXIS COX MDCT BRAIN WO [place] [address] PatientName: FAITH VANCE MR #: [id number] : 1960 Age/Sex: 57/M Req #: [id number] Adm Physician: Ordered by: KHAI WAHL MD Report #: [id number] Location: ER Room/Bed: __ Procedure: [id number] CT/CT BRAIN WO Exam Date: 10/23/17 Exam [...] COPY TO: KHAI WAHL V MDCTA CHEST [place] [address] PatientName: FAITH VANCE MR #: [id number] : 1960 Age/Sex: 57/M Req #: [id number] Adm Physician: Ordered by: KHAI WAHL MD Report #: [id number] Location: ER Room/Bed: __ Procedure: [id number] CT/CTA CHEST Exam Date: 10/23/17 Exam Time: [...] reviewed and is below limits set by [facility]). FINDINGS: Lines and Tubes: Pacemaker with [...] 10/23/2017 4:21 PMDictated By: OREN IRIZARRY MD 1621 Transcribed By: ANDREE on 10/23/17 1621 COPY TO: KHAI WAHL V [facility] SINGLE (PORTABLE) [place] [address] PatientName: FAITH VANCE MR #: [id number] : 1960 Age/Sex: 57/M Req #: [id number] Adm Physician: Ordered by: KHAI WAHL MD Report #: [id number] Location: ER Room/Bed: __ Procedure: [id number] DX/CHEST SINGLE (PORTABLE) Exam Date: 10/23/17 Exam [...] TO: KHAI WAHL V MDCT BRAIN WO [place] [address] PatientName: FAITH VANCE MR #: [id number] : 1960 Age/Sex: 56/M Req #: [id number] Adm Physician: Ordered by: JACQUELYN MONTES DE OCA MD Report #: [id number] Location: ER Room/Bed: Procedure: [id number] CT/CT BRAIN WO Exam Date: Exam Time: [...] MONTES DE OCA MDCT CERVICAL SPINE WO [place] [address] PatientName: FAITH VANCE MR #: [id number] : 1960 Age/Sex: 56/M Req #: [id number] Adm Physician: Ordered by: JACQUELYN MONTES DE OCA MD Report #: [id number] Location: ER Room/Bed: Procedure: [id number] CT/CT CERVICAL SPINE WO Exam Date: Exam [...] 04/04/17206 [facility] [place] [address] PatientName: FAITH VANCE MR #: [id number] : 1960 Age/Sex: 56/M Req #: [id number] Adm Physician: Ordered by: JACQUELYN MONTES DE OCA MD Report #: [id number] Location: ER Room/Bed: Procedure: [id number] DX/CHEST SINGLE (PORTABLE) Exam Date: 04/04/17 Exam [...] OCA MDHIP RIGHT 2-3 VW (+/- PELVIS) [place] [address] PatientName: FAITH VANCE MR #: [id number] : 1960 Age/Sex: 56/M Req #: [id number] Adm Physician: Ordered by: JACQUELYN MONTES DE OCA MD Report #: [id number] Location: ER Room/Bed: Procedure: [id number] DX/HIP RIGHT 2-3 VW (+/- PELVIS) Exam [...] DE OCA MDSP LUMBAR, COMPLETE MIN 4VW [place] [address] PatientName: FAITH VANCE MR #: [id number] : 1960 Age/Sex: 56/M Req #: [id number] Adm Physician: Ordered by: JACQUELYN MONTES DE OCA MD Report #: [id number] Location: ER Room/Bed: Procedure: [id number] DX/SP LUMBAR, COMPLETE MIN 4VW Exam Date: [...] JACQUELYN MONTES DE OCA MDUS ABDOMEN COMPLETE [place] [address] PatientName: FAITH VANCE MR #: [id number] : 1960 Age/Sex: 56/M Req #: [id number] Adm Physician: NICHELLE PALACIOS MD Ordered by: SCOTT AMIN MD Report #: [id number] Location: [facility] Room/Bed: [place] [address] Procedure: [id number] US/US ABDOMEN COMPLETE Exam Date: 03/08/17 Exam [...] ANIBAL on 03/08/171039 COPY TO: SCOTT AMIN [facility] SINGLE (PORTABLE) [place] [address] PatientName: FAITH VANCE MR #: [id number] : 1960 Age/Sex: 56/M Req #: [id number] Adm Physician: Ordered by: JACQUELYN MONTES DE OCA MD Report #: [id number] Location: ER Room/Bed: Procedure: [id number] DX/CHEST SINGLE (PORTABLE) Exam Date: 03/05/17 Exam [...]
[2022-01-30 18:42] LABS: Absolute Lymphocytes (CBC) 1.3 K/uL (0.7-4.9); Hematocrit 32.9 % (39.6-49.0); Lymphocytes % 16.9 % (15.3-44.8); MCV 90.8 fL (80-100); MPV 7.6 fL (7.6-11.3); RBC Red Blood Cell Count 3.63 M/uL (4.33-5.43)
[2022-01-30] MEDS ORDERED: PROMETHAZINE INJ 25 MG/ML AMP ONE (18:43)
[2022-01-30] MEDS ORDERED: MORPHINE 2 MG/ML SYR ONE (18:44)
--- NOTE | 2022-01-30 18:54 | RAD REPORT ---
EXAM DESCRIPTION: RAD - Chest Single View - 01/30/2022 6:40 pm CLINICAL HISTORY: CHEST PAIN Chest pain. COMPARISON: Chest Single View dated 01/28/2022; Chest Single View dated 01/24/2022; Chest Single View da ludmila 01/20/2022; Chest Single View dated 01/17/2022 FINDINGS: Portable technique limits examination quality. Mild pulmonary edema suspected. The heart is prominent in size with a pacer device present. No displa koffi fractures. IMPRESSION: Mild CHF.
[2022-01-30 19:36] LABS: Troponin High Sensitivity 18.1 pg/mL (<58.9)
[2022-01-30 19:37] LABS: Potassium 4.9 mmol/L (3.5-5.1)
--- NOTE | 2022-01-30 19:46 | ER ---
Nurse's Notes [facility] Name: Ernie Rooney Age: 61 yrs Sex: Male : 1960 Arrival Date: 01/30/2022 Time: 17:50 Bed 20 Private MD: Diagnosis: Chest pain, unspecified;Patient's noncompliance with other medical treatment and regimen Presentation: 01/30 17:51 Chief complaint:. Chief complaint: EMS states: He has been having chest pain since this bm7 morning. He is very non-compliant with his medications and has been out for two months. Coronavirus screen: At this time, the client does not indicate any symptoms associated with coronavirus-19. Ebola Screen: No symptoms or risks identified at this time. Initial Sepsis Screen: Does the patient meet any 2 criteria? No. Patient's initial sepsis screen is negative. Does the patient have a suspected source of infection? No. Patient's initial sepsis screen is negative. Risk Assessment: Do you want to hurt yourself or someone else? Patient reports no desire to harm self or others. Onset of symptoms was January 30, 2022. 17:51 Method Of Arrival: EMS: [facility] 17:51 Acuity: TONE 2 7 18:05 Care prior to arrival: Medication(s) given: ASA, 81 mg, x 4. bm7 Triage Assessment: 17:52 General: Appears in no apparent distress. uncomfortable, Behavior is anxious. Pain: bm7 Complains of pain in mid-sternal area Pain radiates to left arm. EENT: No deficits noted. No signs and/or symptoms were reported regarding the EENT system. Neuro: No deficits noted. Cardiovascular: Denies shortness of breath, Heart tones S1 S2 present Patient's skin is warm and dry. Chest pain is described as mild, quality is pressure, radiates to left arm(s). Respiratory: No deficits noted. GI: No deficits noted. No signs and/or symptoms were reported involving the gastrointestinal system. : No deficits noted. No signs and/or symptoms were reported regarding the genitourinary system. Derm: No deficits noted. No signs and/or symptoms reported regarding the dermatologic system. 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 Historical: - Allergies: 17:52 NKA; bm7 - Home Meds: 17:52 albuterol sulfate 90 mcg/actuation Inhl aepb [Active]; atorvastatin 40 mg Oral tab 1 bm7 tab once daily [Active]; furosemide 40 mg Oral tab 1 tab once daily [Active]; levothyroxine 50 mcg Tb24 1 cap once daily [Active]; gabapentin 800 mg Oral tab 1 tab 3 times per day [Active]; lisinopril 2.5 mg Oral tab 1 tab once daily [Active]; fenofibrate micronized 200 mg Oral Tb24 1 cap once daily [Active]; cyclobenzaprine 10 mg Oral tab 1 tab as needed [Active]; glipizide 10 mg Oral tab 1 tab once daily [Active]; spironolactone 25 mg Oral tab 1 tab once daily [Active]; venlafaxine 75 mg Oral tab 1 tab 2 times per day [Active]; omeprazole 20 mg Oral cpDR 1 cap once daily [Active]; Humulin N Pen 100 unit/mL (3 mL) Sub-Q inpn [Active]; tamsulosin 0.4 mg Oral Tb24 1 cap once daily [Active]; metformin 500 mg Oral tab 1 tab daily [Active]; aspirin 81 mg Oral chew [Active]; apixaban 5 mg Oral tab 1 tab 2 times per day [Active]; - PMHx: 17:52 Arthritis; Back pain; CVA; Depression; Diabetes - NIDDM; Fibromyalgia; GERD; High bm7 Cholesterol; Hyperlipidemia; Hypertension; Hypertensive disorder; Hypothyroidism; 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 - Social history:: Smoking status: Patient denies any tobacco usage or history of. Screenin:59 Abuse screen: Denies threats or abuse. Nutritional screening: No deficits noted. bm7 Tuberculosis screening: No symptoms or risk factors identified. Fall Risk None identified. Assessment: 18:59 Reassessment: No changes from previously documented assessment. Patient and/or family bm7 updated on plan of care and expected duration. Pain level reassessed. Patient is alert, oriented x 3, equal unlabored respirations, skin warm/dry/pink. Patient states feeling better. Patient states symptoms have improved. Vital Signs: 17:50 BP 157 / 82; Pulse 80; Resp 16; Temp 97.7(TE); Pulse Ox 100% on R/A; Weight 71.21 kg bm7 (R); Height 5 ft. 7 in. (170.18 cm); Pain 10/10; 18:59 BP 132 / 80; Pulse 82; Resp 16; Pulse Ox 100% on R/A; Pain 3/10; bm7 19:51 BP 149 / 87; Pulse 80; Resp 16; Pulse Ox 100% on R/A; Pain 2/10; bm7 17:50 Body Mass Index 24.59 (71.21 kg, 170.18 cm) bm7 ED Course: 17:50 Patient arrived in ED. bm7 17:50 Arm band placed on right wrist. EKG completed in triage. Results shown to MD. bm7 17:52 Triage completed. bm7 17:54 [facility] 9 17:54 Mustapha Cole MD is Attending Physician. 9 17:56 Loida Suresh RN is Primary Nurse. bm7 18:42 XRAY Chest (1 view) In Process Unspecified. EDMS 18:59 No apparent distress. Resting quietly. Awaiting lab results, Awaiting radiology results.bm7 18:59 Patient has correct armband on for positive identification. Placed in gown. Bed in low bm7 position. Call light in reach. Side rails up X2. Client placed on continuous cardiac and pulse oximetry monitoring. NIBP monitoring applied. residential monitor on. Warm blanket given. 18:59 No provider procedures requiring assistance completed. Maintain EMS IV. Dressing bm7 intact. Good blood return noted. Site clean \T\ dry. Gauge \T\ site: 20G R HAND. Patient maintains SpO2 saturation greater than 95% on room air. 20:29 Contacted [employer] to get the patient home. They stated they do not have any drivers mw2 available. 21:06 Report given to DEANNA SCRUGGS. 7 21:06 Patient admitted, IV remains in place. bm7 Administered Medications: 18:38 Drug: morphine 2 mg Route: IVP; Infused Over: 4 mins; Site: right hand; bm7 19:50 Follow up: Response: Pain is decreased 7 18:38 Drug: Phenergan (promethazine) 12.5 mg Route: IVP; Site: right hand; bm7 19:50 Follow up: Response: No adverse reaction bm7 19:50 Drug: Lasix (furosemide) 40 mg Route: IVP; Site: right hand; bm7 19:51 Follow up: Response: No adverse reaction bm7 Medication: 18:59 VIS not applicable for this client. bm7 Outcome: 19:46 Discharge ordered by MD. man 21:07 Admitted to Tele accompanied by tech, via stretcher, room 427, with oxygen, with chart, bm7 Report called to DEANNA SCRUGGS 21:07 Condition: improved 21:07 Discharge instructions given to patient, family, Instructed on the need for admit, Demonstrated understanding of 21:08 Patient left the ED. bm7 Signatures: Dispatcher [employer] EDMichele Navarrete mw2 Loida Suresh, RN RN bm7 Tato Arreola9
--- NOTE | 2022-01-30 19:46 | EDPHYS ---
Physician Documentation [facility] [place] [place] [facility] Name: Ernie Rooney Age: 61 yrs Sex: Male : 1960 Arrival Date: 01/30/2022 Time: 17:50 Bed 20 Private MD: ANIA Physician Mustapha Cole HPI: 01/30 18:01 This 61 yrs old Male presents to ER via EMS with complaints of chest pain jl9 since this morning. Patient states he has been out of his medications for 2 months. Patient seen here numerous times recently for same issue. . 18:01 Onset: The symptoms/episode began/occurred this morning. Severity of symptoms: Pain is jl9 currently a . Historical: - Allergies: 17:52 NKA; bm7 - Home Meds: 17:52 albuterol sulfate 90 mcg/actuation Inhl aepb [Active]; atorvastatin 40 mg Oral tab 1 bm7 tab once daily [Active]; furosemide 40 mg Oral tab 1 tab once daily [Active]; levothyroxine 50 mcg Tb24 1 cap once daily [Active]; gabapentin 800 mg Oral tab 1 tab 3 times per day [Active]; lisinopril 2.5 mg Oral tab 1 tab once daily [Active]; fenofibrate micronized 200 mg Oral Tb24 1 cap once daily [Active]; cyclobenzaprine 10 mg Oral tab 1 tab as needed [Active]; glipizide 10 mg Oral tab 1 tab once daily [Active]; spironolactone 25 mg Oral tab 1 tab once daily [Active]; venlafaxine 75 mg Oral tab 1 tab 2 times per day [Active]; omeprazole 20 mg Oral cpDR 1 cap once daily [Active]; Humulin N Pen 100 unit/mL (3 mL) Sub-Q inpn [Active]; tamsulosin 0.4 mg Oral Tb24 1 cap once daily [Active]; metformin 500 mg Oral tab 1 tab daily [Active]; aspirin 81 mg Oral chew [Active]; apixaban 5 mg Oral tab 1 tab 2 times per day [Active]; - PMHx: 17:52 Arthritis; Back pain; CVA; Depression; Diabetes - NIDDM; Fibromyalgia; GERD; High bm7 Cholesterol; Hyperlipidemia; Hypertension; Hypertensive disorder; Hypothyroidism; 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 - Social history:: Smoking status: Patient denies any tobacco usage or history of. ROS: 18:02 Constitutional: Negative for fever, chills, and weight loss, Eyes: Negative for injury, jl9 pain, redness, and discharge, ENT: Negative for injury, pain, and discharge, Neck: Negative for injury, pain, and swelling. 18:02 Respiratory: Negative for shortness of breath, cough, wheezing, and pleuritic chest pain, Abdomen/GI: Negative for abdominal pain, nausea, vomiting, diarrhea, and constipation, Back: Negative for injury and pain, : Negative for injury, bleeding, discharge, and swelling, MS/Extremity: Negative for injury and deformity, Skin: Negative for injury, rash, and discoloration, Neuro: Negative for headache, weakness, numbness, tingling, and seizure, Psych: Negative for depression, anxiety, suicide ideation, homicidal ideation, and hallucinations, Allergy/Immunology: Negative for hives, rash, and allergies, Endocrine: Negative for neck swelling, polydipsia, polyuria, polyphagia, and marked weight changes, Hematologic/Lymphatic: Negative for swollen nodes, abnormal bleeding, and unusual bruising. 18:02 Cardiovascular: Positive for chest pain. Exam: 18:02 Constitutional: This is a well developed, well nourished patient who is awake, alert, jl9 and in no acute distress. Head/Face: Normocephalic, atraumatic. Eyes: Pupils equal round and reactive to light, extra-ocular motions intact. Lids and lashes normal. Conjunctiva and sclera are non-icteric and not injected. Cornea within normal limits. Periorbital areas with no swelling, redness, or edema. ENT: Mucous membranes moist. Neck: Trachea midline, no thyromegaly or masses palpated, and no cervical lymphadenopathy. Supple, full range of motion without nuchal rigidity, or vertebral point tenderness. No Meningismus. 18:02 Chest/axilla: Normal chest wall appearance and motion. Nontender with no deformity. No lesions are appreciated. Cardiovascular: Regular rate and rhythm with a normal S1 and S2. No gallops, murmurs, or rubs. Normal PMI, no JVD. No pulse deficits. Respiratory: Lungs have equal breath sounds bilaterally, clear to auscultation and percussion. No rales, rhonchi or wheezes noted. No increased work of breathing, no retractions or nasal flaring. Abdomen/GI: Soft, non-tender, with normal bowel sounds. No distension or tympany. No guarding or rebound. No evidence of tenderness throughout. Back: No spinal tenderness. No costovertebral tenderness. Full range of motion. Skin: Warm, dry with normal turgor. Normal color with no rashes, no lesions, and no evidence of cellulitis. 18:02 Neuro: Awake and alert, GCS 15, oriented to person, place, time, and situation. Cranial nerves II-XII grossly intact. Motor strength 5/5 in all extremities. Sensory grossly intact. Cerebellar exam normal. Normal gait. Psych: Awake, alert, with orientation to person, place and time. Behavior, mood, and affect are within normal limits. 18:02 Musculoskeletal/extremity: Patient bilateral BKA's.. Vital Signs: 17:50 BP 157 / 82; Pulse 80; Resp 16; Temp 97.7(TE); Pulse Ox 100% on R/A; Weight 71.21 kg bm7 (R); Height 5 ft. 7 in. (170.18 cm); Pain 10/10; 18:59 BP 132 / 80; Pulse 82; Resp 16; Pulse Ox 100% on R/A; Pain 3/10; bm7 19:51 BP 149 / 87; Pulse 80; Resp 16; Pulse Ox 100% on R/A; Pain 2/10; bm7 17:50 Body Mass Index 24.59 (71.21 kg, 170.18 cm) bm7 MDM: 17:54 Patient medically screened. 9 18:03 Data reviewed: vital signs, nurses notes. Test interpretation: by ED physician or [facility] midlevel provider: ECG, Paced.. 19:39 Response to treatment: the patient's symptoms have resolved after treatment, the 9 patient's pain is gone. 19:44 Response to treatment: Patient pain free. Agrees to follow up with PCP to get his [facility] medications. . 01/30 17:55 Order name: Basic Metabolic Panel; Complete Time: 19:37 [facility] 01/30 17:55 Order name: CBC with Diff; Complete Time: 18:52 01/30 17:55 Order name: Troponin HS; Complete Time: 19:37 01/30 17:55 Order name: XRAY Chest (1 view); Complete Time: 19:05 01/30 19:19 Order name: BNP 01/30 17:55 Order name: EKG; Complete Time: 17:56 01/30 17:55 Order name: Cardiac monitoring; Complete Time: 17:56 01/30 17:55 Order name: EKG - Nurse/Tech; Complete Time: 17:56 01/30 17:55 Order name: IV Saline Lock; Complete Time: 17:56 01/30 17:55 Order name: Labs collected and sent; Complete Time: 17:56 01/30 17:55 Order name: O2 Per Protocol; Complete Time: 17:56 01/30 17:55 Order name: O2 Sat Monitoring; Complete Time: 17:56 01/30 18:51 Order name: Labs - recollect needed: recollect green top; Complete Time: 19:45 eb Administered Medications: 18:38 Drug: morphine 2 mg Route: IVP; Infused Over: 4 mins; Site: right hand; bm7 19:50 Follow up: Response: Pain is decreased bm7 18:38 Drug: Phenergan (promethazine) 12.5 mg Route: IVP; Site: right hand; bm7 19:50 Follow up: Response: No adverse reaction bm7 19:50 Drug: Lasix (furosemide) 40 mg Route: IVP; Site: right hand; bm7 19:51 Follow up: Response: No adverse reaction bm7 Disposition Summary: 01/30/22 19:46 Discharge Ordered Location: Home jl9 Condition: Stable jl9 Diagnosis - Chest pain, unspecified jl9 - Patient's noncompliance with other medical treatment and regimen jl9 Followup: jl9 - With: Private Physician - When: 1 - 2 days - Reason: Recheck today's complaints, Continuance of care, Re-evaluation by your physician Discharge Instructions: - Discharge Summary Sheet jl9 - Nonspecific Chest Pain, Adult, Rjcg-ye-Ggef jl9 Forms: - Medication Reconciliation Form jl9 - Thank You Letter jl9 - Antibiotic Education jl9 - SBAR form mw2 - Prescription Opioid Use jl9 Signatures: Dispatcher [employer] EDMS Cristine Kaplan Brittany RN RN bm7 Tato Arreola jl9 Corrections: (The following items were deleted from the chart) 19:45 18:01 This 61 yrs old Male presents to ER via EMS with complaints of chest jl9 pain since this morning. Patient states he has been out of his medications for 2 months. . jl9 19:48 18:01 This 61 yrs old Male presents to ER via EMS with complaints of chest jl9 pain since this morning. Patient states he has been out of his medications for 2 months. Patient seen here numerous time recently. . jl9
[2022-01-30] MEDS ORDERED: FUROSEMIDE 40 MG/4 ML VIAL ONE (19:57)
[2022-01-30 21:52] VITALS: TEMP 97.7; O2SAT 100
[2022-01-30 21:56] VITALS: BP 149/87
--- NOTE | 2022-01-31 15:07 | EKG ---
Test Date: 2022-01-30 Test Time: 17:58:51 Brand Sales Consultant: GREGORY MEASUREMENT RESULTS: Intervals: Rate: 78 MI: 184 QRSD: 156 QT: 434 QTc: 494 [place]: P: 96 MI: 184 QRS: -47 T: 126 INTERPRETIVE STATEMENTS: Atrial-sensed ventricular-paced rhythm Abnormal ECG Compared to ECG 01/28/2022 00:22:47 No significant changes Electronically Signed On 01-31-22 15:06:48 CDT by Kavin Keenan
== END 2022-01-30 21:08 | disposition home or self-care (01) ==
LOC: ER 17:46
DX: R07.9 Chest pain, unspecified (principal); Z91.19 Patient's noncompliance with other medical treatment and regimen; I10 Essential (primary) hypertension; Z95.0 Presence of cardiac pacemaker; Z95.1 Presence of aortocoronary bypass graft; E11.9 Type 2 diabetes mellitus without complications; Z79.4 Long term (current) use of insulin
CPT/HCPCS: 93005; 85025; 80048; 36415; 84484; 83880; 71045; 96375; 96374; 99285; J2550; J1940; J2270

== ENCOUNTER 2022-02-01 02:39 | Emergency (ER) | payer OTHER ==
--- OUTSIDE RECORDS SUMMARY | 2022-02-01 02:47 | XMS REPORT | Continuity of Care Document ---
:1960 Author Organization [facility] t Address [address] [place] [address] Care Team Providers Name Role Phone MONIKA HALL MD Primary Care Physician [id number] Attending Clinician Unavailable Harshal Zhu Attending Clinician [...] Clinician Unavailable NICHELLE PALACIOS Attending Clinician Unavailable [id number] Admitting Clinician Unavailable Nika Martin Admitting Clinician [...] Date Expiration Date S willow 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 Type 2 Type 2 Disease Active 2019- Univers diabetes diabetes 01-17 ity of mellitus mellitus 00:00: [place] without without 00 Medical complicati complicati Br anch on, on, without without long-term long-term current current use of use of insulin insulin Essential Essential Disease Active Uni vers hypertensi hypertensi 01-17 it y of on on 00:00: [place] [address] Medical Branch Other Other Disease Active Univers hyperlipid hyperlipid 01-17 it y of emia emia 00:00: [place] [address] Medical Branch Stroke Stroke Disease Active Univers 5-12 ity of 00:00: [place] [facility] Left-sided Left-sided Disease Active U nivers weakness weakness 5- ity of 00:00: [place] [facility] Left sided Left sided Disease Active U nivers numbness numbness - ity of 00:00: [place] 00 Medical Branch S/P admn S/P admn Disease Active Unive rs tPA in tPA in 4-11 ity of diff fac diff fac 00:00: [place] w/n last w/n last 00 Medica l 24 hr bef 24 hr bef Bran ch adm to adm to crnt fac crnt fac Unstable Unstable Disease Active Unive rs angina angina 4-10 ity of 00:00: [place] [facility] Atypical Atypical Disease Active Unive rs chest pain chest pain 2-22 it y of 00:00: [place] [facility] [place] Chest pain Chest pain Problem Active [facility] Coronary CAD Problem Active [facility] artery (coronary [facility] disease artery Patient disease) [facility] Diabetic DKA Problem Active [facility] ketoacidos (diabetic Esme es is ketoacidos Patien t es) Medical [facility] Hyperglyce Hyperglyce Problem Active [facility] bambi bambi [facility] Hypertensi Hypertensi Problem Active [facility] on on [facility] Pancreatit Pancreatit Problem Active [facility] is is [facility] Uncontroll Uncontroll Problem Active [facility] ed ed [facility] diabetes diabetes Patien t mellitus mellitus Medica l Center Allergies, Adverse Reactions, Alerts Allergy Allergy Status Severity Reaction(s) Onset Inactive Treating Comm ents Source Name Type Date Date Clinician No Known DA Active U 2021-0 [facility] 3-22 [place] [facility] 00:00: d 00 [facility] No Known DA Active U 2020-0 [facility] Allergie 3-22 [place] 00:00: d 00 [facility] No Known DA Active U 2017- [facility] Allergie 2-31 Clear s 00:00: Mejia 00 [facility] No Known DA Active U 2018-1 [facility] Allergie 2-31 Clear s 00:00: Mejia 00 [facility] No Known DA Active U 2018-0 [facility] Allergie 3-26 [place] 00:00: e 00 [facility] NO KNOWN Drug Active Univers ALLERGIE Class ity of S [place] [facility] Social History Social Habit Start Date Stop Date Quantity Comments Source History of Cigarette Smoker Universi ty of tobacco use [place] [facility] History SDOH University o f Alcohol Frequency [place] [facility] ed[facility] History SDOH University o f Alcohol Std [place] [facility] Drinks Branch History SDOH University o f Alcohol Binge [place] [facility] Exposure to 2021-10-30 2021-11-09 Unable to assess Univers ity of SARS-CoV-2 00:00:00 15:13:00 [facility] (event) Branch Alcohol intake 2021-11-05 2021-11-05 1.71 /d University of 00:00:00 00:00:00 [facility] Branch Tobacco Comment 2021-11-03 2021-11-03 quit 15 years ago Un iversity of 00:00:00 00:00:00 [place] [facility] Education 2021-10-27 2021-10-27 9 University of 00:00:00 00:00:00 [place] [facility] History SDOH 2020-03-16 2020-03-16 3 University o f Financial 00:00:00 00:00:00 [place] [facility] History SDOH Food 2020-03-16 2020-03-16 2 Univers ity of Worry 00:00:00 00:00:00 [place] [facility] History SDHI Food 2020-03-16 2020-03-16 2 Univers ity of Scarcity 00:00:00 00:00:00 [place] [facility] History SDOH 2020-03-16 2020-03-16 1 University o f Transport Med 00:00:00 00:00:00 [place] [facility] History SDOH 2020-03-16 2020-03-16 1 University o f Transport Non-Med 00:00:00 00:00:00 [place] M [facility] Alcohol Comment 2019-07-18 2019-07-18 quit drinking [employer] of 00:00:00 00:00:00 2013 but drank [facility] heavily before Branch this Tobacco use and 2018-07-14 2018-07-14 Never used Universit y of exposure 00:00:00 00:00:00 [facility] Sex Ass[birth year] At [birth year] LUCY Sanders 00:00:00 00:00:00 [facility] Center Smoking Status Start Date Stop Date Source Former smoker 2018-07-14 00:00:00 2018-07-14 00:00:[address] [facility] Medications Ordered Filled Start Stop Current [...] On Branch Mon11/05/21 at 0215, Routine gabapentin 2021- No 300mg [...] at 0215, 1 mL gabapentin 2021- Yes [id number] 300mg Take 1 Univers 300 mg 11-05 capsule by ity of capsule 00:00: 04:59 mouth 3 [place] 00 :00 (three) Medical times Branch daily for 10 days. gabapentin 2021- Yes [id number] 300mg Take 1 Univers 300 mg 11-05 capsule by ity of capsule 00:00: 04:59 mouth 3 [place] 00 :00 (three) Medical times Branch daily for 10 days. aspirin 81 2021- Yes [id number] 81mg Take 1 Univers mg chewable 6-16 07-17 tablet by it y of tablet 00:00: 04:59 mouth [place] 00 :00 daily for Medical 30 days. Branch aspirin 81 2021- Yes [id number] 81mg Take 1 Univers mg chewable 6-16 07-17 tablet by it y of tablet 00:00: 04:59 mouth [place] 00 :00 daily for Medical 30 days. Branch aspirin 81 2021- Yes [id number] 81mg Take 1 Univers mg chewable 6-16 07-17 tablet by it y of tablet 00:00: 04:59 mouth [place] 00 :00 daily for Medical 30 days. Branch proMETHazin Yes [id number] 25mg Take 1 Univers e 25 mg 6-03 tablet by ity of tablet 00:00: mouth [place] 00 every 6 Medical (six) Branch hours as needed for Nausea and Vomiting (N/V). proMETHazin Yes [id number] 25mg Take 1 Univers e 25 mg 6-03 tablet by ity of tablet 00:00: mouth [place] 00 every 6 Medical (six) Branch hours as needed for Nausea and Vomiting (N/V). proMETHazin 2022-0 Yes [id number] 25mg Take 1 Univers e 25 mg 6-03 tablet by ity of tablet 00:00: mouth [place] 00 every 6 Medical (six) Branch hours as needed for Nausea and Vomiting (N/V). fenofibrate 2021- No [id number] 134mg Take 1 Univers micronized -19 12- capsule by it y of 134 mg 00:00: 04:59 mouth [place] capsule 00 :00 daily for Medical 30 days. Branch lisinopriL 2021- No [id number] 2.5mg Take 1 Univers 2.5 mg -19 12- tablet by ity of tablet 00:00: 04:59 mouth [place] 00 :00 daily for Medical 30 days. Branch fenofibrate 2021- No [id number] 134mg Take 1 Univers micronized -19 12- capsule by it y of 134 mg 00:00: 04:59 mouth [place] capsule 00 :00 daily for Medical 30 days. Branch lisinopriL 2021- No [id number] 2.5mg Take 1 Univers 2.5 mg -19 12- tablet by ity of tablet 00:00: 04:59 mouth [place] 00 :00 daily for Medical 30 days. Branch fenofibrate 2021- No [id number] 134mg Take 1 Univers micronized -19 12- capsule by it y of 134 mg 00:00: 04:59 mouth [place] capsule 00 :00 daily for Medical 30 days. Branch lisinopriL 2021- No [id number] 2.5mg Take 1 Univers 2.5 mg -19 12- tablet by ity of tablet 00:00: 04:59 mouth [place] 00 :00 daily for Medical 30 days. Branch furosemide 2021- No [id number] 40mg Take 1 Univers 40 mg 5-30 [...] s: atrial fibrillati on calcitrioL 2021- No [id number] .5ug Take 1 Univers 0.5 mcg 5-30 06-30 capsule by ity o f capsule 00:00: 04:59 mouth [place] 00 :00 daily for Medical 30 days. Branch insulin NPH 2021- No [id number] 5U inject 5 Univers (HUMULIN N 5-30 06-30 Units ity of NPH U-100 00:00: 04:59 [place]ULIN[place] 00 :00 skin every Medic al 100 unit/mL evening Branc h injection for 30 days. atorvastati 2021- No [id number] 40mg Take 1 Univers n 40 mg 5-30 -30 tablet by ity of tablet 00:00: 04:59 mouth at [place] 00 :00 bedtime Medical for 30 Branch days. carvediloL 2021- No [id number] 3.125mg Take 1 Univers 3.125 mg 5-30 06-30 tablet by ity o f tablet 00:00: 04:59 mouth 2 [place] 00 :00 (two) Medical times [place] daily with meals for 30 days. furosemide 2021- No [id number] 40mg Take 1 Univers 40 mg 5-30 06-30 tablet by ity of tablet 00:00: 04:59 mouth [place] 00 :00 every Medical morning Branch and evening for 30 days. apixaban 5 2021- No [id number] 5mg Take 1 Univ ers mg tablet 5-30 06-30 tablet by ity of 00:00: 04:59 mouth 2 [place] 00 :00 (two) Medical times [place] daily for 30 days. Indication s: atrial fibrillati on calcitrioL 2021- No [id number] .5ug Take 1 Univers 0.5 mcg 5-30 06-30 capsule by ity o f capsule 00:00: 04:59 mouth [place] 00 :00 daily for Medical 30 days. Branch insulin NPH 2021- No [id number] 5U inject 5 Univers (HUMULIN N 5-30 06-30 Units ity of NPH U-100 00:00: 04:59 [place]ULIN[place] 00 :00 skin every Medic al 100 unit/mL evening Branc h injection for 30 days. atorvastati 2021- No [id number] 40mg Take 1 Univers n 40 mg 5-30 06-30 tablet by ity of tablet 00:00: 04:59 mouth at [place] 00 :00 bedtime Medical for 30 Branch days. carvediloL 2021- No [id number] 3.125mg Take 1 Univers 3.125 mg 5-30 -30 tablet by ity o f tablet 00:00: 04:59 mouth 2 [place] 00 :00 (two) Medical times Branch daily with meals for 30 days. furosemide 2021- No [id number] 40mg Take 1 Univers 40 mg 5-30 [...] s: atrial fibrillati on calcitrioL 2021- No [id number] .5ug Take 1 Univers 0.5 mcg 5-30 -30 capsule by ity o f capsule 00:00: 04:59 mouth [place] 00 :00 daily for Medical 30 days. Branch insulin NPH 2021- No [id number] 5U inject 5 Univers (HUMULIN N 5-30 06-30 Units ity of NPH U-100 00:00: 04:59 [place] INSULIN[place] 00 :00 skin every Medic al 100 unit/mL evening Branc h injection for 30 days. atorvastati 2021- No [id number] 40mg Take 1 Univers n 40 mg 5-30 -30 tablet by ity of tablet 00:00: 04:59 mouth at [place] 00 :00 bedtime Medical for 30 Branch days. carvediloL 2021- No [id number] 3.125mg Take 1 Univers 3.125 mg 5-30 -30 tablet by ity o f tablet 00:00: 04:59 mouth 2 [place] 00 :00 (two) Medical times Branch daily with meals for 30 days. metFORMIN Yes [id number] 500mg Take 1 U nivers 500 mg 3-02 tablet by ity of tablet 00:00: mouth 2 [place] 00 (two) Medical times Branch daily with meals. metFORMIN 0 Yes [id number] 500mg Take 1 U nivers 500 mg 3-02 tablet by ity of tablet 00:00: mouth 2 [place] (two) Medical times Branch daily with meals. metFORMIN 0 Yes [id number] 500mg Take 1 U nivers 500 mg 3-02 tablet by ity of tablet 00:00: mouth 2 [place] (two) Medical times Branch daily with meals. albuterol Yes [id number] 2{puff} Inhale 2 Univers 90 2-21 Puffs 2 ity of mcg/actuati 00:00: (two) [place] on inhaler 00 times Medical daily. Branch collagenase Yes [id number] Use as Univers 250 2-21 directed ity of unit/gram 00:00: by office Juan J as ointment 00 Medical Branch cyclobenzap Yes [id number] 10mg Take 1 Univers rine 10 mg 2-21 tablet by ity of tablet 00:00: mouth 2 [place] (two) Medical times Branch daily as needed for Muscle Spasms. dextrometho Yes [id number] 10mL Take 10 mL Univers rphan-guaif 2-21 by mouth ity of enesin 00:00: every 6 [place] 10-100 mg/5 00 (six) Medical mL solution hours as Bran ch needed for Cough. HYDROcodone Yes 1{tbl} Take 1 Un charley -acetaminop 2-21 tablet by ity of hen 5-325 00:00: mouth [place] mg tablet 00 every 6 Medical (six) Branch hours as needed for Pain (scale 4-6). melatonin 3 0 Yes [id number] 3mg Take 1 Univers mg tablet 2-21 tablet by ity o f 00:00: mouth at [place] 00 bedtime. Medical Branch ondansetron 0 Yes [id number] 4mg Take 1 Univers 4 mg 2-21 tablet by ity of disintegrat 00:00: mouth [place] ing tablet 00 every 8 Medica l (eight) Branch hours as needed for Nausea and Vomiting (N/V). albuterol 0 Yes [id number] 2{puff} Inhale 2 Univers 90 2-21 Puffs 2 ity of mcg/actuati 00:00: (two) [place] on inhaler 00 times Medical daily. Branch collagenase Yes [id number] Use as Univers 250 2-21 directed ity of unit/gram 00:00: by office Juan J as ointment 00 Medical Branch cyclobenzap Yes [id number] 10mg Take 1 Univers rine 10 mg 2-21 tablet by ity of tablet 00:00: mouth 2 [place] 00 (two) Medical times Branch daily as needed for Muscle Spasms. dextrometho 0 Yes [id number] 10mL Take 10 mL Univers rphan-guaif 2-21 [...] Pain (scale 4-6). melatonin 3 0 Yes [id number] 3mg Take 1 Univers mg tablet 2-21 tablet by ity o f 00:00: mouth at [place] 00 bedtime. Medical Branch ondansetron 0 Yes [id number] 4mg Take 1 Univers 4 mg 2-21 tablet by ity of disintegrat 00:00: mouth [place] ing tablet 00 every 8 Medica l (eight) Branch hours as needed for Nausea and Vomiting (N/V). albuterol Yes [id number] 2{puff} Inhale 2 Univers 90 2-21 Puffs 2 ity of mcg/actuati 00:00: (two) [place] on inhaler 00 times Medical daily. Branch collagenase 0 Yes [id number] Use as Univers 250 2-21 directed ity of unit/gram 00:00: by office Juan J as ointment 00 Medical Branch cyclobenzap Yes [id number] 10mg Take 1 Univers rine 10 mg 2-21 tablet by ity of tablet 00:00: mouth 2 [place] 00 (two) Medical times Branch daily as needed for Muscle Spasms. dextrometho 0 Yes [id number] 10mL Take 10 mL Univers rphan-guaif 2-21 [...] for Pain (scale 4-6). melatonin 3 Yes [id number] 3mg Take 1 Univers mg tablet 2-21 tablet by ity o f 00:00: mouth at [place] 00 bedtime. Medical Branch ondansetron Yes [id number] 4mg Take 1 Univers 4 mg 2-21 tablet by ity of disintegrat 00:00: mouth [place] ing tablet 00 every 8 Medica l (eight) Branch hours as needed for Nausea and Vomiting (N/V). Aspirin 81 Aspirin 81 2018- No Alexis [address] Mg Tab.chew Mg Tab.chew 10-26 Brooke Frankel 00:00: 00:00 Patient 00 :00 [facility] Diflunisal Diflunisal 2015- No Todd Wynn [address] [facility] (Dolobid) (Dolobid) 01-17[facility] 500 Mg 500 Mg 00:00: 00:00 Patient Tablet, 500 Tablet, 500 00 :00 M edical Mg Oral Mg Oral [facility] Ondansetron Ondansetron 2015- No Todd Wynn [address] Hcl Hcl 01-17 [place] as [facility] s (Zofran*) 4 (Zofran*) 4 00:00: 00:00 needed for Patient Mg Tablet, Mg Tablet, 00 :00 Nausea M edical 4 Mg 4 Mg [facility] Sublingual Sublingual Clopidogrel Clopidogrel Yes 75 Daily [...] [facility] nophen nophen needed for Patie nt ([place] ([facility] 10-325 10-325 Center Tablet) 1 [...] Mg 20 Mg [facility] Capsule.dr Lind.dr John [facility] Simvastatin Simvastatin Yes [address] 80 Mg 80 Mg [facility] Tablet Tablet [facility] Tamsulosin Tamsulosin Yes Daily [facility] Hcl 0.4 Mg Hcl 0.4 Mg Esme es Cap.er.24h Cap.er.24h Pat [facility] Tramadol Tramadol Yes 50 Four Times [...] Navid tietangela Mg Oral Mg Oral :00 [facility] Insulin Insulin 2016- No 40 [...] 06-17 [facility] Capsule., Capsule., 00:00 Patient :00 [facility] Insulin Insulin No Twice A [facility] [...] 25 Mg Oral 25 Mg Oral :00 [facility] Albuterol Albuterol 90 As Needed [facility] [...] 00:00 Patient Mg Oral Mg Oral :00 [facility] Methocarbam Methocarbam No 500 Three [...] 00:00 Patient Mg Oral Mg Oral :00 [facility] Nitroglycer Nitroglycer No .4 As Needed [...] Manjula ent Gm Oral Gm Oral :00 [facility] Temazepam Temazepam [address] (Restoril) (Restoril) 11-23 Theresa kes 30 Mg 30 Mg 00:00 Patient Capsule, 30 Capsule, 30 :00 M edical Mg Oral Mg Oral Center Tizanidine Tizanidine No [address] Hcl 4 Mg Hcl 4 Mg 11-23 [facility] Capsule, 4 Capsule, 4 00:00 Pa tient Mg Oral Mg Oral :00 [facility] Trazodone Trazodone No [address] Hcl 50 Mg Hcl 50 Mg 11-23 Luke s Tablet, 50 Tablet, 50 00:00 Pa tient Mg Oral Mg Oral :00 [facility] Venlafaxine Venlafaxine No 37.[address] [facility] Hcl 37.5 Mg Hcl 37.5 Mg 11-23 Day [facility] Tablet, Tablet, 00:00 Patient 37.5 Tab 37.5 Tab :00 Medical Oral Oral Center Cyclobenzap Cyclobenzap [address] rine Hcl 10 rine Hcl 10 12-19 Times A [facility] Mg Tablet, Mg Tablet, 00:00 Day Pa tient 10 Mg Oral 10 Mg Oral :[address] [facility] ical [facility] Gabapentin Gabapentin No [address] 300 Mg 300 Mg 12-19 Times A [facility] Capsule, Capsule, 00:00 Day Patien t 600 Mg Oral 600 Mg Oral :00 [facility] Pregabalin Pregabalin No 150 Twice A [...] Immunizations Ordered Filled Immunization Date Status Comments [facility] e Immunization Name Name Influenza Virus 2021-01-16 Completed Universit y of Vaccine 00:00:00 [facility] Influenza Virus 2021-01-16 Completed Universit y of Vaccine 00:00:00 [facility] Influenza Virus 2021-01-16 Completed Universit y of Vaccine 00:00:00 [facility] SARS-COV-2 COVID-19 2020-10-16 Completed Unive rsity of PEDRO/J&J VACCINE 00:00:00 [facility] SARS-COV-2 COVID-19 2020-10-16 Completed Unive rsity of PEDRO/J&J VACCINE 00:00:00 [facility] SARS-COV-2 COVID-19 2020-10-16 Completed Unive rsity of PEDRO/J&J VACCINE 00:00:00 [facility] Influenza Virus 2020-01-21 Completed Universit y of Vaccine 00:00:00 [facility] Influenza Virus 2020-01-21 Completed Universit y of Vaccine 00:00:00 [facility] Influenza Virus 2020-01-21 Completed Universit y of Vaccine 00:00:00 [facility] Zoster Vaccine 2019-07-17 Completed University of Recombinant 00:00:00 [facility] Zoster Vaccine 2019-07-17 Completed University of Recombinant 00:00:00 [facility] Zoster Vaccine 2019-07-17 Completed University of Recombinant 00:00:00 [facility] Td 2019-03-29 Completed University of 00:00:00 [facility] Td 2019-03-29 Completed University of 00:00:00 [facility] Td 2019-03-29 Completed University of 00:00:00 [facility] Influenza Virus 2018-02-18 Completed Universit y of Vaccine 00:00:00 [facility] Pneumococcal 2018-02-18 Completed University o f Polysaccharide, 00:00:00 [place] Med ical PPSV23 (PNEUMOVAX) [place] Influenza Virus 2018-02-18 Completed Universit y of Vaccine 00:00:00 [facility] Pneumococcal 2018-02-18 Completed University o f Polysaccharide, 00:00:00 [place] Med ical PPSV23 (PNEUMOVAX) [place] Influenza Virus 2018-02-18 Completed Universit y of Vaccine 00:00:00 [facility] Pneumococcal 2018-02-18 Completed University o f Polysaccharide, 00:00:00 [place] Med ical PPSV23 (PNEUMOVAX) [place] Influenza Virus 2008-03-19 Completed Universit y of Vaccine 00:00:00 [facility] Pneumococcal 2008-03-19 Completed University o f Polysaccharide, 00:00:00 [place] Med ical PPSV23 (PNEUMOVAX) Branch Influenza Virus 2008-03-19 Completed Universit y of Vaccine 00:00:00 [facility] Pneumococcal 2008-03-19 Completed University o f Polysaccharide, 00:00:00 [place] Med ical PPSV23 (PNEUMOVAX) Branch Influenza Virus 2008-03-19 Completed Universit y of Vaccine 00:00:00 [facility] Pneumococcal 2008-03-19 Completed University o f Polysaccharide, 00:00:00 [facility] ical PPSV23 (PNEUMOVAX) Branch Vital Signs Vital Name Observation Time Observation Value Comments Source Systolic blood 2021-11-09 23:00:00 124 mm[Hg] Univer sity of pressure [facility] Diastolic blood 2021-11-09 23:00:00 69 mm[Hg] Unive rsity of [facility] Heart rate 2021-11-09 23:00:00 72 /min [facility] ty [facility] Respiratory rate 2021-11-09 23:00:00 25 /min [facility] saturation in 2021-11-09 23:00:00 98 /min University of Arterial blood by [place] [employer] [facility] uriel Pulse oximetry Branch Body temperature 2021-11-09 20:28:39 37.22 [facility] [place] [facility] Body height 2021-11-09 20:16:00 170.2 cm [facility] Body weight 2021-11-09 20:16:00 71.215 kg [facility] BMI 2021-11-09 20:16:00 24.59 kg/m2 [facility] Systolic blood 2021-11-05 10:00:00 134 mm[Hg] Univer sity of [facility] Diastolic blood 2021-11-05 10:00:00 78 mm[Hg] Unive rsity of [facility] Heart rate 2021-11-05 10:00:00 81 /min [facility] ty [facility] Body temperature 2021-11-05 08:10:00 36.28 Sandy [facility] ersity [facility] Respiratory rate 2021-11-05 08:00:00 18 /min Univ ersity [facility] Oxygen saturation in 2021-11-05 08:00:00 99 /min University of Arterial blood by [employer] uriel Pulse oximetry Branch Body height 2021-11-05 05:48:00 170.2 cm [facility] Body weight 2021-11-05 05:48:00 71.215 kg [facility] BMI 2021-11-05 05:48:00 24.59 kg/m2 [facility] Procedures Procedure Date / Time Performing Clinician Source Performed B-TYPE NATRIURETIC 2022-01-30 18:10:00 LUCY [facility] ([facility]NP) Center XR CHEST 1 VW 2021-11-09 21:07:00 Tryo Ku Mckenzie [facility] POCT GLUCOSE 2021-11-09 20:25:00 Troy Ku Mckenzie [facility] (AUTOMATED) [facility] MAGNESIUM 2021-11-09 20:19:[address] [facility] TROPONIN I 2021-11-09 20:19:00 Troy Ku [facility] COMP. METABOLIC PANEL 2021-11-09 20:19:00 Troy Ku [facility] ([id number]) [facility] CBC WITH DIFF 2021-11-09 20:19:00 Troy Ku [facility] N-TERMINAL PRO-BNP 2021-11-09 20:19:00 Troy Ku [facility] XR CHEST 1 2021-11-05 06:38:35 Mihaela Martin [facility] [id number] 2020-08-11 00:00:00 ALDMO [facility] [id number] 2020-08-11 00:00:00 ALDMO [facility] [id number] 2020-08-11 00:00:00 ALDMO [facility] [id number] 2020-08-11 00:00:00 ALDMO [facility] Computed tomography 2017-10-24 00:00:00 ALEXIS [facility] Patient angiography of [facility] CT angiography of chest 2017-10-23 00:00:00 KHAI WAHL [facility] Computed tomography of 2017-10-23 00:00:00 KHAI WAHL [facility] Patient brain without Medical Center radiopaque contrast Computed tomography of 2017-04-04 00:00:00 JACQUELYN MONTES DE OCA [facility] Patient brain without Medical Center radiopaque contrast Computed tomography of 2017-04-04 00:00:00 JACQUELYN MONTES DE OCA [facility] [place] Patient cervical spine without Medical C enter contrast US abdomen complete 2017-03-08 00:00:00 SCOTT AMIN LUCY [facility] Encounters Start End Encounter Admission Attending Care Care Encounter Source Date/Time Date/Time Type Type Clinicians Facility Department ID 2021-06-17 Outpatient [id number] ENCKY MALDONADO [id number] [facility] 10:24:03 [id number] 2021-06-17 Outpatient [id number] ENCKY REF [id number] [facility] 10:22:04 [id number] 2020-08-23 Inpatient HCACL FERNANDO [id number] [facility] 17:41:00 84 [facility] 2020-04-04 Inpatient Marko, HCAMN HCAMN [id number] [facility] 14:40:00 Edward 33 [facility] 2019-10-15 Inpatient RADHA Shah, HCAPM ENDO [id number] [facility] 15:30:00 Finn [id number] [facility] 2022-01-30 2022-01-30 Lab [facility] [id number] [facility] [address] 00:00:00 00:00:00 Requisitio [facility] 2021-11-09 2021-11-09 Emergency X KINGS, K [facility] ERT [id number] Univers 15:15:00 18:32:[address] [facility] 2021-11-09 2021-11-09 Emergency Kings, K [facility] 1.2.840.114 [id number] Univers 15:15:00 18:32:00 Mckenzie PEREZ 350.1.13.10 prakash [place] 4.2.7.2.686 [facility] [id number] [place] [address] [address] 2021-11-05 2021-11-05 Emergency X VERONICA, [facility] ERT [id number] Univers 00:44:00 06:53:[address] [facility] 2021-11-05 2021-11-05 Emergency [facility] [id number] [id number] Univers 00:44:00 06:53:00 Mihaela Barrett ANA 350.1.13.10 ity of JESSIECHRISTINE 4.2.7.2.686 [facility] [id number] [facility] 084 Branch 2021-11-04 2021-11-04 Transition RIVAS Feliciano 1.2.840.114 [id number] Univers 00:00:00 00:00:00 of Jennifer FALLONY 350.1.13.10 it y of PLABRUCE 4.2.7.2.686 [facility] [id number] [facility] 403 Branch 2021-11-02 2021-11-03 Outpatient X BRAYDON [facility] [id number] Univers 22:35:00 15:46:00 OC [facility] 2021-10-27 2021-10-29 Outpatient X DERRICK [facility] DARIUS [id number] Univers 17:41:00 14:03:00 ANA MARIA [facility] 2021-07-21 2021-07-21 Outpatient Wong_H VFP VFP [id number] Village 06:58:00 06:58:00 [id number] Family Practic e 2020-10-30 2020-11-05 [facility] [id number] [facility] 16:50:00 13:52:00 Fede 88413 [facility] 2020-10-31 2020-10-31 Outpatient AMELIA Carrera LABO [id number] [facility] 08:22:00 08:22:00 Fede 73 [facility] 2020-10-28 2020-10-28 Hospital Radiology [facility] 1.2.840.114 [id number] 08:30:17 23:59:00 Encounter Ana 350.1.13.10 Tower 4.2.7.2.686 [place] [id number] 2020-10-12 2020-10-12 Outpatient R CHANTELLE [facility] [id number] Univers 14:00:00 14:50:48 PERLA [facility] 2020-10-06 2020-10-06 Office [facility] 1.2.840.114 [id number] 10:43:51 11:59:29 Visit Gina Raiton 350.1.13.10 [place] 4.2.7.2.686 reinaldoaden [id number] [facility] 205 [facility] 2020-08-19 2020-08-19 Outpatient MAURILIO, HCABM OPLA [id number] [facility] 07:13:00 07:13:00 DOES_NOT 89 [facility] 2020-08-10 2020-08-14 Inpatient EM ANNEL MontanezCL INTE.02 [id number] [facility] 09:09:00 18:56:00 Johnie 31 [facility] 2017-10-23 2017-10-27 [facility]charged [id number] 17:29:00 16:54:00 Inpatient ALEXIS 90 [place] s [facility] 2017-04-03 2017-04-04 [facility] [id number] 23:17:00 03:53:00 Emergency LAIRD 58 Luke s Room [facility] 2017-03-05 2017-03-09 Discharged [facility] [id number] 06:54:00 10:58:00 Inpatient NICHELLE 46 Luke s (obs) [facility] 2017-01-04 2017-01-05 Discharged [facility] [id number] 10:33:00 18:56:00 Inpatient 63 Luke s (obs) [facility] Results Test Description Test Time Test Comments Results Result Comments Source B-type Natriuretic Factor (BNP) 2022-01-30 23:33:12 Test Item Value Reference Range Interpretation Comme nts BNP (test code = 29167-0) 443 pg/mL 0-100 H DIANE (test code = DIANE) [employer] 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 Lab Interpretation Normal (test code = 41743-2) [facility] [id number] 20:54:59 Test Item Value Reference Range Interpretation Comments NT-proBNP (test code 6490 pg/mL See_Comment H [Autom ated = 2868424838) message] The system which generated this result transmitted reference range : <=125. The reference range was not used to interpret this result as normal/abnormal . DIANE (test code = DIANE) Biotin has been reported to cause a negative bias, interpret results relative to patient's use of biotin. Lab Interpretation Abnormal (test code = 99261-4) [facility]2022-06-21 20:46:35 Test Item Value Reference Range Interpretation Comments MAGNESIUM (test code = 6082174052) 1.5 mg/dL 1.7-2.4 L Lab Interpretation (test code = Abnormal 24777-1) [facility]. METABOLIC PANEL (24957)2021-11-09 20:46:34 Test Item Value Reference Range Interpretation Comments NA (test code = 140 mmol/L 135-145 4974773089) K (test code = 3.9 mmol/L 3.5-5.0 7409406801) CL (test code = 111 mmol/L 98-108 H 6916336434) CO2 TOTAL (test code = 16 mmol/L 23-31 L 6748509796) AGAP (test code = 2-16 7459114488) BUN (test code = 14 mg/dL 7-23 9001763180) GLUCOSE (test code = 189 mg/dL 70-110 H 1668254023) CREATININE (test code = 0.66 mg/dL 0.60-1.25 4504822410) TOTAL BILI (test code = 0.8 mg/dL 0.1-1.1 3064262407) CALCIUM (test code = 8.3 mg/dL 8.6-10.6 L 2646913010) T PROTEIN (test code = 6.5 g/dL 6.3-8.2 7708752694) ALBUMIN (test code = 3.3 g/dL 3.5-5.0 L 0990424409) ALK PHOS (test code = 136 U/L 34-122 H 9786210523) ALTv (test code = 18 U/L 5-50 1742-6) AST(SGOT) (test code = 26 U/L 13-40 2687750826) eGFR (test code = mL/min/1.73m2 7238828141) DIANE (test code = DIANE) Association of [...] tests). Lab Interpretation Abnormal (test code = 01904-8) [facility] WITH [id number] 20:33:30 Test Item Value Reference Range Interpretation [...] RDW-SD (test code = 45.4 fL 38.5-51.6 91102-4) RDW-CV (test code = 14.2 % 12.1-15.4 788-0) PLT (test code = See_Comment [Automated 777-3) message] The sy stem which generated this result transmitted reference range : 150 - 328 10*3/ ?L. The reference r batsheva was not used to interpret this result as normal/abnormal . MPV (test code = 9.8 fL 9.8-13.0 37349-5) NRBC/100 WBC (test See_Comment [Automat ed code = 7619991965) message] The system which generated this result transmitted reference range : 0.0 - 10.0 /100 WBCs. The refer ence range was not u sed to interpret th is result as normal/abnormal . NRBC x10^3 (test code <0.01 See_Comment [Auto mated = 7288613805) message] The s ystem which generated this result transmitted reference range : 10*3/?L. The reference range was not used to interpret this result as normal/abnormal . GRAN MAT (NEUT) % 62.3 % (test code = 770-8) IMM GRAN % (test code 0.80 % = 2064265721) LYMPH % (test code = 25.1 % 736-9) MONO % (test code = 6.7 % 5905-5) EOS % (test code = 4.7 % 713-8) BASO % (test code = 0.4 % 706-2) GRAN MAT x10^3(ANC) 4.76 10*3/uL 1.99-6.95 (test code = 5096385202) IMM GRAN x10^3 (test 0.06 10*3/uL 0.00-0.06 code = 7728027912) LYMPH x10^3 (test code 1.92 10*3/uL 1.09-3.23 = 731-0) MONO x10^3 (test code 0.51 10*3/uL 0.36-1.02 = 742-7) EOS x10^3 (test code = 0.36 10*3/uL 0.06-0.53 711-2) BASO x10^3 (test code 0.03 10*3/uL 0.01-0.09 = 704-7) Lab Interpretation Abnormal (test code = 46030-8) [facility] (AUTOMATED)2021-11-09 20:27:39 Test Item Value Reference Range Interpretation Comments POCT GLU (test code = 2442369317) 190 mg/dL 70-110 H Lab Interpretation (test code = Abnormal 33418-0) [facility] BED[facility]IDE [id number] 11:52:00 Test Item Value Reference Range Interpretation Comments GLUCOSE BEDSIDE TESTING (test code = 92 mg/dL 70-110 N GLUBED) GLUCOSE BEDSIDE [id number] 08:05:00 Test Item Value Reference Range Interpretation Comments GLUCOSE BEDSIDE TESTING (test code = 62 mg/dL 70-110 L GLUBED) GLUCOSE BEDSIDE [id number] 20:40:00 Test Item Value Reference Range Interpretation Comments GLUCOSE BEDSIDE TESTING (test code 105 mg/dL 70-110 N = GLUBED) GLUCOSE BEDSIDE [id number] 17:02:00 Test Item Value Reference Range Interpretation Comments GLUCOSE BEDSIDE TESTING (test code 128 mg/dL 70-110 H = GLUBED) GLUCOSE BEDSIDE [id number] 16:37:00 Test Item Value Reference Range Interpretation Comments GLUCOSE BEDSIDE TESTING (test code 105 mg/dL 70-110 N = GLUBED) GLUCOSE BEDSIDE [id number] 08:17:00 Test Item Value Reference Range Interpretation Comments GLUCOSE BEDSIDE TESTING (test code = 88 mg/dL 70-110 N GLUBED) GLUCOSE BEDSIDE [id number] 19:45:00 Test Item Value Reference Range Interpretation Comments GLUCOSE BEDSIDE TESTING (test code 115 mg/dL 70-110 H = GLUBED) GLUCOSE BEDSIDE [id number] 18:13:00 Test Item Value Reference Range Interpretation Comments GLUCOSE BEDSIDE TESTING (test code = 74 mg/dL 70-110 N GLUBED) GLUCOSE BEDSIDE [id number] 17:29:00 Test Item Value Reference Range Interpretation Comments GLUCOSE BEDSIDE TESTING (test code = 44 mg/dL 70-110 LL GLUBED) GLUCOSE BEDSIDE [id number] 12:26:00 Test Item Value Reference Range Interpretation Comments GLUCOSE BEDSIDE TESTING (test code = 96 mg/dL 70-110 N GLUBED) GLUCOSE BEDSIDE [id number] 08:21:00 Test Item Value Reference Range Interpretation Comments GLUCOSE BEDSIDE TESTING (test code = 77 mg/dL 70-110 N GLUBED) GLUCOSE BEDSIDE [id number] 20:12:00 Test Item Value Reference Range Interpretation Comments GLUCOSE BEDSIDE TESTING (test code = 91 mg/dL 70-110 N GLUBED) GLUCOSE BEDSIDE [id number] 16:42:00 Test Item Value Reference Range Interpretation Comments GLUCOSE BEDSIDE TESTING (test code 106 mg/dL 70-110 N = GLUBED) GLUCOSE BEDSIDE [id number] 11:49:00 Test Item Value Reference Range Interpretation Comments GLUCOSE BEDSIDE TESTING (test code = 89 mg/dL 70-110 N GLUBED) GLUCOSE BEDSIDE [id number] 08:22:00 Test Item Value Reference Range Interpretation Comments GLUCOSE BEDSIDE TESTING (test code = 68 mg/dL 70-110 L GLUBED) GLUCOSE BEDSIDE [id number] 20:05:00 Test Item Value Reference Range Interpretation Comments GLUCOSE BEDSIDE TESTING (test code 137 mg/dL 70-110 H = GLUBED) GLUCOSE BEDSIDE [id number] 16:42:00 Test Item Value Reference Range Interpretation Comments GLUCOSE BEDSIDE TESTING (test code = 98 mg/dL 70-110 N GLUBED) GLUCOSE BEDSIDE [id number] 11:13:00 Test Item Value Reference Range Interpretation Comments GLUCOSE BEDSIDE TESTING (test code 118 mg/dL 70-110 H = GLUBED) GLUCOSE BEDSIDE [id number] 07:37:00 Test Item Value Reference Range Interpretation Comments GLUCOSE BEDSIDE TESTING (test code 140 mg/dL 70-110 H = GLUBED) COMPREHENSIVE METABOLIC [id number] 06:34:00 Test Item Value Reference Range Interpretation [...] TOTAL (test code = ALKP) CBC W/AUTO [id number] 06:25:00 Test Item Value Reference Range Interpretation [...] DIFF/SCN CRITERIA = MDIFF) - CT ABDOMEN W/[id number] 03:09:00 [facility] 1960 Sex: M Name: FAITH VANCE [facility] : 1960 Age/S: 60 / M [address] Unit #: [id number] Loc: [place] [address] Phys: Fede Carrera DO Acct: [id number] Dis Date: Status: ADM IN PHONE #: [phone] Exam Date: 10/31/20201919 FAX #: Reason: NAUSEA, VOMITING, DIARRHEA EXAMS: CPT: [id number] CT ABDOMEN W/CONTRAST 84688 EXAM: - CT ABDOMEN W/CONTRAST LOCATION: H61 [...] 1 Signed Report (CONTINUED) Name: FAITH VANCE [place] : 1960 Age/S: 60 / M [address] Unit #: [id number] Loc: [place] [address] Phys: Fede Green Acct: [id number] Dis Date: Status: ADM IN PHONE #: [phone] Exam Date: 10/31/20201919 FAX #: Reason: NAUSEA, VOMITING, DIARRHEA EXAMS: CPT: [id number] CT ABDOMEN W/CONTRAST 77204<Continued> small bowel wall thickening. The appendix is [...] Arias RT(R) CTDI: DLP: Trnscb Date/Time: 11/01/2020 (030) RubinaR.TH15 Orig Print D/T: S: 11/01/2020 (0311) PAGE 2 Signed ReportGLUCOSE BEDSIDE [id number] 21:34:00 Test Item Value Reference Range Interpretation Comments GLUCOSE BEDSIDE TESTING (test code 161 mg/dL 70-110 H = GLUBED) GLUCOSE BEDSIDE [id number] 17:32:00 Test Item Value Reference Range Interpretation Comments GLUCOSE BEDSIDE TESTING (test code 136 mg/dL 70-110 H = GLUBED) - XR ABDOMEN 1 [id number] 12:44:00 [facility] 1960 Sex: M Name: FAITH VANCE [facility] : 1960 Age/S: 60 / M [address] Unit #: [id number] Loc: [place] [address] Phys: Fede Carrera DO Acct: [id number] Dis Date: Status: ADM IN PHONE #:[phone] Exam Date: 10/31/2020 1227 FAX #: Reason: Abdominal pain in the lower qudarants EXAMS:CPT: [id number] XR ABDOMEN 1 V 27723 Fluoro Time: DAP (Gy m2): Air Kerma [...] few small bowel loops. Overall nonspecific appearance. [id number] Reported and signed by: Ananth Schmidt M.D. CC: Nika Martin MD; Fede Carrera DO PAGE 1 Signed Report Name: FAITH VANCE [facility] : 1960 Age/S: 60 / M [address] Unit #: [id number] Loc: [place] [address] Phys: Fede Carrera DO Acct: [id number] Dis Date: Status: ADM IN PHONE #: [phone] Exam Date: 10/31/2020 1227 FAX #: Reason: Abdominal pain in thelower qudarants EXAMS: CPT: [id number] XR ABDOMEN 1 V 53694 Fluoro Time: DAP (Gy m2): Air Kerma (mGy): <Continued> Technologist: RT Rohan(Tim) Trnscb Date/Time: 10/31/2020 (1244) Freda Print D/T: S: 10/31/2020 (3889) PAGE 2 Signed ReportGLUCOSE BEDSIDE [id number] 11:58:00 Test Item Value Reference Range Interpretation Comments GLUCOSE BEDSIDE TESTING (test code 105 mg/dL 70-110 N = GLUBED) GLUCOSE BEDSIDE [id number] 08:01:00 Test Item Value Reference Range Interpretation Comments GLUCOSE BEDSIDE TESTING (test code 106 mg/dL 70-110 N = GLUBED) [id number] 22:46:00 Test Item Value Reference Range Interpretation [...] yby method. Completed by Nursing: NOGLUCOSE BEDSIDE [id number] 21:55:00 Test Item Value Reference Range Interpretation Comments GLUCOSE BEDSIDE TESTING (test code 119 mg/dL 70-110 H = GLUBED) [id number] 19:33:00 Test Item Value Reference Range Interpretation [...] method. Completed by Nursing: NOCoronavirus 2019 nCoV [id number] 18:46:00 Test Item Value Reference Range Interpretation Comments Coronavirus 2019 nCoV Negative Negative Per arnie west, Bedside (test code = negativ e results should [id number]) be treated aspresumptive a nd, if inconsistent [...] with COVID-19. Spec Comments: NNT PRO-BRAIN NATRIURETIC [id number] 15:51:00 Test Item Value Reference Range Interpretation Comments NT PRO-BRAIN NATRIURETIC PEPTI 6079 PG/ML 0-100 H (test code = PROBNP) Completed by Nursing: [id number] 15:51:00 Test Item Value Reference Range Interpretation [...] yby method. Completed by Nursing: NOBASIC METABOLIC [id number] 15:51:00 Test Item Value Reference Range Interpretation [...] Completed by Nursing: NO- XR CHEST 1 [id number] 15:42:00 [facility] 1960 Sex: M Name: FAITH VANCE [facility] : 1960 Age/S: 60 / M [address] Unit #: [id number] Loc: [place] [address] Phys: Todd Jacobo MD Acct: [id number] Dis Date: Status: PRE ER PHONE #:[phone] Exam Date: 10/30/2020 1524 FAX #: Reason: chest pain EXAMS: CPT: [id number] XR CHEST 1 V 00203 Fluoro Time: DAP (Gy m2): Air Kerma [...] pacemaker is present. No acute osseous abnormality. Impression:Perihilar and lower lung hazy opacification may be congestive heart failure or bibasilar pneumonia. There may be small layering effusions. at 1542 Reported and signed by: Lopez Ruiz M.D. CC: Nika Martin MD; Todd Jacobo MD PAGE 1 Signed Report Name: FAITH VANCE [facility] : 1960 Age/S: 60 / M [address] Unit #: [id number] Loc: [place] [address] Phys: Todd Jacobo MD Acct: [id number] Dis Date: Status: PRE ER PHONE #: [phone] Exam Date: 10/30/2020 1524 FAX #: Reason: chest pain EXAM S: CPT: [id number] XR CHEST 1 V 78312 Fluoro Time: DAP (Gy m2): Air Kerma (mGy): <Continued> Technologist: Kim Andrews RT(R)(CT) Trnscb Date/Time: 10/30/2020 (1542) [id number] Orig Print D/T: S: 10/30/2020 (7819) PAGE 2 Signed ReportCBC W/O [id number] 15:31:00 Test Item Value Reference Range Interpretation [...] 9.70 fL 7.0-9.6 H MPV) BASIC METABOLIC [id number] 21:42:00 Test Item Value Reference Range Interpretation [...] 9.6 mg/dL 8.0-10.5 N CA) HEPATIC FUNCTION [id number] 21:42:00 Test Item Value Reference Range Interpretation [...] 114 IUnit/L 20-125 N code = ALKP) [id number] 21:42:00 Test Item Value Reference Range Interpretation Comments LIPASE (test code = LIP) 70 U/L 13-57 H [id number] 21:42:00 Test Item Value Reference Range Interpretation [...] by method. UA RFLX MICR CULT IF [id number] 21:37:00 Test Item Value Reference Range Interpretation [...] INDWELLING CATH (CEDENO)Cath Status: Under 72 hoursPROTHROMBIN [id number] 21:35:00 Test Item Value Reference Range Interpretation [...] (to prevent recurrent infar ct). THROMBOPLASTIN TIME [id number] 21:35:00 Test Item Value Reference Range Interpretation Comments THROMBOPLASTIN TIME 41.7 Seconds 25.0-39.5 H Therape utic Range: PARTIAL (test code = 50.4 - 88.3 Seconds PTT) Effective 09/04/2018 CBC W/AUTO [id number] 21:29:00 Test Item Value Reference Range Interpretation [...] = MDIFF) - CT ABD PELVIS W/O [id number] 20:49:00 [facility] 1960 Sex: M Name: FAITH VANCE [facility] : 1960 Age/S: 60 / M [address] [place] [address] Blvd Unit #: [id number] Loc: [place] [address] Phys: Gisel Eugene Acct: [id number] Dis Date: Status: REG ER PHONE #: [phone] Exam Date: 08/23/20202024 FAX #: [phone] Reason: DIFFUSE ABDOMINAL PAIN EXAMS: CPT CODE: [id number] CT ABD PELVIS W/O CONT 91460 Clinical indication: Diffuse abdominal pain. Contrast - No IV contrast was given. No oral contrast was given Noncontrast phase - abdomen and pelvisincluding all of kidneys Reconstructions - coronal and sagittal planes Automated exposure reduction (Auto mA/Smart mA) was utilized in compliance with ACR Image [employer]isely with DLP of 694.8 mGy-cm. COMPARIS ON: Prior CT abdomen and pelvis dated 01/03/2019. [...] 1 Signed Report (CONTINUED) Name: FAITH VANCE [facility] : 1960 Age/S: 60 / M [address] [place] [address] Blvd Unit #: [id number] Loc: [place] [address] Phys: Gisel Eugene [facility] Acct: [id number] Dis Date: Status: REG ER PHONE #: [phone] Exam Date: 08/23/20202024 FAX #: [phone] Reason: DIFFUSE ABDOMINAL PAINEXAMS: CPT CODE: [id number] CT ABD PELVIS W/O CONT 05068 <Continued> Peritoneum/Other: No extraluminal air. No extraluminal fluid. IMPRESSION: 1. No acute process in the abdomen and pelvis. 2. Hepatic steatosis. 3. Cholecystectomy. Mild prominence of the proximal common bile duct likely due to increased capacitance. 4. 2.3 x 2.2 cm simple right interpolar renal cyst. Tiny nonobstructive left jose alejandro al calculus. No hydronephrosis. 5. Normal appendix. 6. Posterior instrumented fusion from L4 through L5 levels. 7. Small left pleural effusion. Electronically Signed by Maria Eugenia Katz on 08/23/2020 at 2049 Reported and signed by: Irene Katz M.D. CC: Alf Hope DO; Carol Martin MD; Gisel Eugene Technologist:Cassandra Anne RT(R)(CT) CTDI: DLP: Trnscb Date/Time: 08/23/2020 (2048) JhonVB9 Orig Print D/T: S: 08/23/2020 (2051) PAGE 2 Signed ReportBASIC METABOLIC [id number] 07:51:00 Test Item Value Reference Range Interpretation [...] >3 months. [Automated mess age] The system [employer] generated this result transmitted ref erence range: >=60. Th e reference range was not used to int erpret this result as normal/abnormal . CREATININE (test 1.20 mg/dL 0.7-1.3 N code = CREAT) BUN/CREATININE RATIO 22.1 10-20 H (test code = BUN/CREA) CALCIUM (test code = 8.6 mg/dL 8.5-10.1 N CA) [id number] 16:58:00 Test Item Value Reference Range Interpretation Comments GLUBED (test code = 159 MG/DL 70-110 H Performe d by certified GLUBED) remote computer terminal operator at [facility] [id number] 11:58:00 Test Item Value Reference Range Interpretation Comments GLUBED (test code = 149 MG/DL 70-110 H Performe d by certified GLUBED) remote computer terminal operator at [facility] BASIC METABOLIC [id number] 08:00:00 Test Item Value Reference Range Interpretation [...] 9.9 mg/dL 8.0-10.5 N CA) CBC W/AUTO [id number] 07:08:00 Test Item Value Reference Range Interpretation [...] DIFF REQUIRED (test code NO = MDIFF) [id number] 05:21:00 Test Item Value Reference Range Interpretation Comments GLUBED (test code = 150 MG/DL 70-110 H Performe d by certified GLUBED) remote computer terminal operator at [facility] [id number] 21:13:00 Test Item Value Reference Range Interpretation Comments GLUBED (test code = 129 MG/DL 70-110 H Performe d by certified GLUBED) remote computer terminal operator at [facility] [id number] 16:48:00 Test Item Value Reference Range Interpretation Comments GLUBED (test code = 116 MG/DL 70-110 H Performe d by certified GLUBED) remote computer terminal operator at [facility] [id number] 12:18:00 Test Item Value Reference Range Interpretation Comments GLUBED (test code = 136 MG/DL 70-110 H Performe d by certified GLUBED) remote computer terminal operator at [facility] [id number] 12:18:00 Test Item Value Reference Range Interpretation Comments GLUBED (test code = 151 MG/DL 70-110 H Performe d by certified GLUBED) remote computer terminal operator at [facility] CBC W/AUTO [id number] 07:32:00 Test Item Value Reference Range Interpretation [...] (test code NO = MDIFF) BASIC METABOLIC [id number] 07:29:00 Test Item Value Reference Range Interpretation [...] code = 9.0 mg/dL 8.0-10.5 N CA) [id number] 05:19:00 Test Item Value Reference Range Interpretation Comments GLUBED (test code = 135 MG/DL 70-110 H Performe d by certified GLUBED) remote computer terminal operator at [facility] [id number] 20:31:00 Test Item Value Reference Range Interpretation Comments GLUBED (test code = 189 MG/DL 70-110 H Performe d by certified GLUBED) remote computer terminal operator at [facility] [id number] 17:41:00 Test Item Value Reference Range Interpretation Comments GLUBED (test code = 140 MG/DL 70-110 H Performe d by certified GLUBED) remote computer terminal operator at [facility] - CTA CHEST FOR [id number] 13:48:00 [facility] 1960 Sex: M Name: FAITH VANCE [facility] : 1960 Age/S: 60 / M [address] [place] [address] Unit #: [id number] Loc: [place] [address] 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: 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 Acct: [id number] Dis Date: Status: ADM IN PHONE #: [phone] Exam Date: 08/12/2020911 FAX #: [phone] Reason: CP, elevated D-dimer EXAMS: CPT CODE: [id number] [place] [address] PROCEDURE: CTA CHEST INDICATION: CP, elevated D-dimer; [...] 1 Signed Report (CONTINUED) Name: FAITH VANCE [facility] [facility] : 1960 Age/S: 60 / M [address] [place] [address] Blvd Unit #: [id number] Loc: [place] [address] Phys: Gina Gonzalez NP Acct: [id number] Dis Date: Status: ADM IN PHONE #: [phone] Exam Date: 08/12/2020911 FAX #: [phone] Reason: CP, elevated D-dimer EXAMS: CPT CODE: [id number] [place] [address] <Continued> contrast enhancement. No acute abnormality demonstrated. MUSCULOSKELETAL: Healed median sternotomy. No acute skeletal abnormality. IMPRESSION: 1. Negative for pulmonary embolic disease within limitations noted. 2. Atherosclerosis. 3. Coronary arterial calcifications with prior coronary arterial stents and CABG. 4. Interstitial edema. No consolidation. 5. Small bilateral pleural effusions. SL: [id number] at 1348 Reported and signed by: Christiano Piña M.D. CC: Johnie Montanez MD; Gina Gonzalez NP; Nika Martin MD Technologist:RT Jazmine(R)(CT) CTDI: DLP: Trnscb Date/Time: 08/12/2020 (1348) tOBINNA Orig Print D/T: S: 08/12/2020 (1351) PAGE 2 Signed MbhrtiSWZAUH9592-10-70 11:38:00 Test Item Value Reference Range Interpretation Comments GLUBED (test code = 146 MG/DL 70-110 H Performe d by certified GLUBED) remote computer terminal operator at [facility] CBC W/AUTO [id number] 09:17:00 Test Item Value Reference Range Interpretation [...] (test code NO = MDIFF) BASIC METABOLIC [id number] 08:28:00 Test Item Value Reference Range Interpretation [...] code = 8.3 mg/dL 8.0-10.5 N CA) UCUTRVOBVJQ2536-23-08 08:28:00 Test Item Value Reference Range Interpretation Comments PHOSPHOROUS (test code = PHOS) 3.6 MG/DL 2.5-4.9 N [id number] 08:28:00 Test Item Value Reference Range Interpretation Comments MAGNESIUM (test code = MAG) 1.94 mg/dL 1.80-2.40 N [id number] 07:16:00 Test Item Value Reference Range Interpretation Comments GLUBED (test code = 170 MG/DL 70-110 H Performe d by certified GLUBED) remote computer terminal operator at [facility] [id number] 07:16:00 Test Item Value Reference Range Interpretation Comments GLUBED (test code = 137 MG/DL 70-110 H Performe d by certified GLUBED) remote computer terminal operator at [facility] [id number] 17:01:00 Test Item Value Reference Range Interpretation Comments GLUBED (test code = 88 MG/DL 70-110 N Performe d by certified GLUBED) remote computer terminal operator at [facility] UQG-[id number] 16:56:00 Test Item Value Reference Range Interpretation Comments ACT-ISTAT (test code 186 SEC 74-137 H Perform ed by certified = ACTI) remote computer terminal operator at [facility] JTA-[id number] 15:03:00 Test Item Value Reference Range Interpretation Comments ACT-ISTAT (test code 235 SEC 74-137 H Perform ed by certified = ACTI) remote computer terminal operator at [facility] PQJJEP1558-01-19 11:33:00 Test Item Value Reference Range Interpretation Comments GLUBED (test code = 97 MG/DL 70-110 N Performe d by certified GLUBED) remote computer terminal operator at [facility] [id number] 06:54:00 Test Item Value Reference Range Interpretation Comments GLUBED (test code = 136 MG/DL 70-110 H Performe d by certified GLUBED) remote computer terminal operator at [facility] BASIC METABOLIC [id number] 06:00:00 Test Item Value Reference Range Interpretation [...] COMMENTS: To be done morning of Heart GgphXGVZUGEALIQ3369-71-01 06:00:00 Test Item Value Reference Range Interpretation Comments PHOSPHOROUS (test code = PHOS) 4.1 MG/DL 2.5-4.9 N COMMENTS: To be done morning of Heart OnjpZDMVZNMXK5841-82-88 06:00:00 Test Item Value Reference Range Interpretation Comments MAGNESIUM (test code = MAG) 1.74 mg/dL 1.80-2.40 L COMMENTS: To be done morning of Heart CathTHROMBOPLASTIN TIME [id number] 05:55:00 Test Item Value Reference Range Interpretation Comments THROMBOPLASTIN TIME 37.9 Seconds 25.0-39.5 N Therape utic Range: PARTIAL (test code = 50.4 - 88.3 Seconds PTT) Effective 09/04/2018 CBC W/AUTO [id number] 05:44:00 Test Item Value Reference Range Interpretation [...] COMMENTS: To be done morning of Heart [id number] 05:44:00 Test Item Value Reference Range Interpretation Comments GLUBED (test code = 92 MG/DL 70-110 N Performe d by certified GLUBED) 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 COVID 19 Asymptomatic IH [id number] 11:35:00 Test Item Value Reference Range Interpretation [...] y tests. COMMENTS: If not done this xpwgdhwawWBXYOCEV-[id number] 11:31:00 Test Item Value Reference Range Interpretation [...] titative results may babak y by method. P-[id number] 11:28:00 Test Item Value Reference Range Interpretation Comments D-DIMER (test 1089 ng/mlFEU See_Comment HH Critical resu lt called to code = ALYX RUSSELL, SHEBAby DDIMER) G.LAB.JJ1 at 04 1808/10/20Nurse r ead [...] APPROPRIATECLIN ICAL EUALUATIONS. [A utomated message] The [employer] stem which generated this result transmitted ref erence range: <=500. T he reference range was not u sed to interpret this result as normal/abnormal . 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 [facility] B-TYPE NATRIURETIC [id number] 08:19:00 Test Item Value Reference Range Interpretation Comments B-TYPE NATRIURETIC PEPTIDE (test 508.0 PG/ML 0-100 H code = BNP) BASIC METABOLIC [id number] 08:11:00 Test Item Value Reference Range Interpretation [...] 9.1 mg/dL 8.0-10.5 N CA) HEPATIC FUNCTION [id number] 08:11:00 Test Item Value Reference Range Interpretation [...] 174 IUnit/L 20-125 H code = ALKP) [id number] 08:11:00 Test Item Value Reference Range Interpretation Comments MAGNESIUM (test code = MAG) 1.80 mg/dL 1.80-2.40 N [id number]-[id number] 08:11:00 Test Item Value Reference Range Interpretation [...] may babak y by method. BASIC METABOLIC [id number] 08:09:00 Test Item Value Reference Range Interpretation [...] code = CA) mg/dL 8.0-10.5 HEPATIC FUNCTION [id number] 08:09:00 Test Item Value Reference Range Interpretation Comments TOTAL PROTEIN (test code = PROT) g/dL 6.4-8.2 ALBUMIN (test code = ALB) g/dL 3.4-5.0 BILIRUBIN TOTAL (test code = BILT) mg/dL 0.0-1.0 BILIRUBIN DIRECT (test code = BILD) MG/DL 0.0-0.30 SGOT/AST (test code = AST) IUnit/L 15-37 SGPT/ALT (test code = ALT) IUnit/L 30-65 ALKALINE PHOSPHATASE TOTAL (test IUnit/L 20-125 code = ALKP) [id number] 08:09:00 Test Item Value Reference Range Interpretation Comments MAGNESIUM (test code = MAG) mg/dL 1.80-2.40 [id number] 08:09:00 Test Item Value Reference Range Interpretation [...] results may babak y by method. PROTHROMBIN [id number] 08:06:00 Test Item Value Reference Range Interpretation Comments PROTHROMBIN TIME 20.1 SECONDS 9.3-12.9 H PATIENT (test code = PTP) INTERNATIONAL NORMAL 1.8 0.8-1.2 H TARGE T INR BY RATIO (test code = INDICATIO [...] (to prevent recurrent infar ct). THROMBOPLASTIN TIME [id number] 08:06:00 Test Item Value Reference Range Interpretation Comments THROMBOPLASTIN TIME 44.5 Seconds 25.0-39.5 H Therape utic Range: PARTIAL (test code = 50.4 - 88.3 Seconds PTT) Effective 09/04/2018 CBC W/AUTO [id number] 07:58:00 Test Item Value Reference Range Interpretation [...] NO = MDIFF) - XR CHEST 1 [id number] 07:57:00 [facility] : 1960 Sex: M FAX: Todd Jacobo MD [phone] [place]: St: REG FAX: Martínez Dash NP [phone] Name: FAITH VANCE [facility] : 1960 Age/S: 60/M [address] [place] [address] Blvd Unit #: [id number] Loc: [place] [address] Phys: Martínez Dash NP Acct: [id number] Dis Date: Status: REG ER PHONE #: [phone] Exam Date: 08/10/2020752 FAX #: [phone] Reason: Chest Pain EXAMS: CPT CODE: [id number] XR CHEST 1 V 71477 Chest single view 08/10/2020 HISTORY: Chest pain. Comparison is made to 05/21/2018 FINDINGS: Pacemaker and midline sternotomy wires are stable. The lungs are hypoinflated. No consolidation or pleural effusion is present. No vascular congestion or interstitial edema is present. Heart size is mildly enlarged. Aorta is unchanged. IMPRESSION: Hypoinflated lungs. No acute cardiopulmonary process. SL: [id number] at 0757 Reported and signed by: Khai Kruse M.D. CC: Todd Jacobo MD; Martínez Dash NP Technologist: RT Zi(Tim) Trnscrd Date/Time/By: 08/10/2020 (0757) : By: [email or web address] Orig Print D/T: S: 08/10/2020 (0800) PAGE 1 Signed Report COMPREHENSIVE METABOLIC [id number] 18:02:00 Test Item Value Reference Range Interpretation [...] 50-136 H TOTAL (test code = ALKP) [id number] 18:02:00 Test Item Value Reference Range Interpretation Comments AMYLASE (test code = SERGIO) 82 Unit/L 25-115 N [id number] 18:02:00 Test Item Value Reference Range Interpretation Comments LIPASE (test code = LIP) 185 Unit/L 114-286 N COMPREHENSIVE METABOLIC [id number] 17:56:00 Test Item Value Reference Range Interpretation [...] TOTAL Unit/L 50-136 (test code = ALKP) [id number] 17:56:00 Test Item Value Reference Range Interpretation Comments AMYLASE (test code = SERGIO) Unit/L 25-115 [id number] 17:56:00 Test Item Value Reference Range Interpretation Comments LIPASE (test code = LIP) 185 Unit/L 114-286 N CBC W/AUTO [id number] 17:46:00 Test Item Value Reference Range Interpretation [...] CRITERIA MDIFF) - CT ABD PELVIS W/O [id number] 17:46:00 Name: FAITH VANCE [facility] : 1960 Age/S: 58 / M [id number] Unit #: [id number] Loc: [place] [address] Phys: Nila Chester MD Acct: [id number] Dis Date: Status: REG ER PHONE #: [phone] Exam Date: 01/03/2019 173 FAX #: Reason: llq EXAMS: CPT: [id number] CT ABD PELVIS W/O CONT 17416 Location of dictation: B2 CT abdomen and [...] VANCE : 1960 Age/S: 58 / M [id number] Unit #: [id number] Loc: [place] [address] Phys: Nila Chester MDAcct: [id number] Dis Date: Status: REG ER PHONE #: [phone] Exam Date: 01/03/2019 1734 FAX #: Reason: llq EXAMS: CPT: [id number] CT ABD PELVIS W/O CONT 73316 <Continued> at 1746 Reported and signed by: Renuka Willett M.D. CC: Nila Chester MD Technologist:Tavon Jurado, RT(R)(CT)(MRI) CTDI: DLP: Trnscb Date/Time: 01/03/2019 (1746) t.[email or web address].[email or web address] Orig Print D/T: S: 01/03/2019 (8375) PAGE 2 Signed ReportBedside [id number] 11:47:00 Test Item Value Reference Range Interpretation Comments Bedside Glucose (test code = 99470-5) 155 70-120 H Meter ID: [id number] Specialty and Transplant Hospitalodium [id number] 08:31:00 Test Item Value Reference Range Interpretation Comments Sodium Level (test code = 2951-2) 139 136-145 [facility] CenterPotassium [id number] 08:31:00 Test Item Value Reference Range Interpretation Comments Potassium Level (test code = 2823-3) 4.0 3.5-5.1 [facility] CenterChloride [id number] 08:31:00 Test Item Value Reference Range Interpretation Comments Chloride Level (test code = 2075-0) 106 98-107 [facility] CenterCarbon Dioxide [id number] 08:31:00 Test Item Value Reference Range Interpretation Comments Carbon Dioxide Level (test code = 8-9) [facility] CenterAnion [id number] 08:31:00 Test Item Value Reference Range Interpretation Comments Anion Gap (test code = 50281-3) 12.0 8-16 [facility] CenterBlood Urea Awoxcptk1015-05-44 08:31:00 Test Item Value Reference Range Interpretation Comments Blood Urea Nitrogen (test code = 7 12-14 3094-0) [facility] CenterCreatinine2018-06-08 08:31:00 Test Item Value Reference Range Interpretation Comments Creatinine (test code = 2160-0) 0.72 0.72-1.25 [facility] CenterBUN/Creatinine [id number] 08:31:00 Test Item Value Reference Range Interpretation Comments BUN/Creatinine Ratio (test code = 11-13 3097-3) [facility] Medical CenterEstimat Glomerular Filtration [id number] 08:31:00 Test Item Value Reference Range Interpretation Comments Estimat Glomerular Filtration Rate 60- >60 (test code = 26149-0) Ranges were taken from the National Kidney Disease Education Program and the National Kidney Foundation literature.Reference ranges:60 or greater: Cnffuu47- 59 (for 3 consecutive months): Chronic kidneydisease 15 or less: Kidney failure [facility] CenterGlucose Kwgps8858-97-78 08:31:00 Test Item Value Reference Range Interpretation Comments Glucose Level (test code = EDY0520) 195 74-118 H [facility] CenterCalcium [id number] 08:31:00 Test Item Value Reference Range Interpretation Comments Calcium Level (test code = 56245-9) 9.0 8.4-10.2 [facility] CenterWhite Blood Egbwd3613-34-20 08:12:00 Test Item Value Reference Range Interpretation Comments White Blood Count (test code = 6690-2) 6.06 4.8-10.8 [facility] CenterRed Blood Hbzxf3040-13-20 08:12:00 Test Item Value Reference Range Interpretation Comments Red Blood Count (test code = 789-8) 4.22 4.3-5.7 L [facility] CenterHemoglobin2018-06-08 08:12:00 Test Item Value Reference Range Interpretation Comments Hemoglobin (test code = 32788-4) 12.5 14.0-18.0 L [facility] CenterHematocrit2018-06-08 08:12:00 Test Item Value Reference Range Interpretation Comments Hematocrit (test code = 4544-3) 36.2 38.2-49.6 L [facility] CenterMean Corpuscular Hisgyr5184-49-70 08:12:00 Test Item Value Reference Range Interpretation Comments Mean Corpuscular Volume (test code = 85.8 81-99 787-2) [facility] CenterMean Corpuscular Ozibzvovpv3452-12-38 08:12:00 Test Item Value Reference Range Interpretation Comments Mean Corpuscular Hemoglobin (test code 29.6 28-32 = 785-6) [facility] CenterMean Corpuscular Hemoglobin Diqjhzp0065-78-16 08:12:00 Test Item Value Reference Range Interpretation Comments Mean Corpuscular Hemoglobin Concent 34.5 31-35 (test code = 786-4) [facility] CenterRed Cell Distribution Efqbp5260-85-12 08:12:00 Test Item Value Reference Range Interpretation Comments Red Cell Distribution Width (test code 14.2 11.7-14.4 = 19045-2) [facility] Medical CenterPlatelet Aexwb7828-10-62 08:12:00 Test Item Value Reference Range Interpretation Comments Platelet Count (test code = 777-3) 263 140-360 [facility] CenterNeutrophils (%) (Auto)2017-10-27 08:12:00 Test Item Value Reference Range Interpretation Comments Neutrophils (%) (Auto) (test code = 51.2 38.7-80.0 28217-6) [facility] CenterLymphocytes (%) (Auto)2017-10-27 08:12:00 Test Item Value Reference Range Interpretation Comments Lymphocytes (%) (Auto) (test code = 33.7 18.0-39.1 736-9) [facility] CenterMonocytes (%) (Auto)2017-10-27 08:12:00 Test Item Value Reference Range Interpretation Comments Monocytes (%) (Auto) (test code = 9.1 4.4-11.3 5905-5) [facility] CenterEosinophils (%) (Auto)2017-10-27 08:12:00 Test Item Value Reference Range Interpretation Comments Eosinophils (%) (Auto) (test code = 4.8 0.0-6.0 713-8) [facility] CenterBasophils (%) (Auto)2017-10-27 08:12:00 Test Item Value Reference Range Interpretation Comments Basophils (%) (Auto) (test code = 0.7 0.0-1.0 706-2) [facility] Medical CenterIM GRANULOCYTES %2017-10-27 08:12:00 Test Item Value Reference Range Interpretation Comments IM GRANULOCYTES % (test code = IM 0.5 0.0-1.0 GRANULOCYTES %) [facility] CenterNeutrophils # (Auto)2017-10-27 08:12:00 Test Item Value Reference Range Interpretation Comments Neutrophils # (Auto) (test code = 3.1 2.1-6.9 751-8) [facility] CenterLymphocytes # (Auto)2017-10-27 08:12:00 Test Item Value Reference Range Interpretation Comments Lymphocytes # (Auto) (test code = 2.0 1.0-3.2 13513-0) [facility] CenterMonocytes # (Auto)2017-10-27 08:12:00 Test Item Value Reference Range Interpretation Comments Monocytes # (Auto) (test code = 742-7) 0.6 0.2-0.8 [facility] CenterEosinophils # (Auto)2017-10-27 08:12:00 Test Item Value Reference Range Interpretation Comments Eosinophils # (Auto) (test code = 0.3 0.0-0.4 711-2) [facility] CenterBasophils # (Auto)2017-10-27 08:12:00 Test Item Value Reference Range Interpretation Comments Basophils # (Auto) (test code = 704-7) 0.0 0.0-0.1 [facility] Medical CenterAbsolute Immature Granulocyte ([id number] 08:12:00 Test Item Value Reference Range Interpretation Comments Absolute Immature Granulocyte (auto 0.03 0-0.1 (test code = Absolute Immature Granulocyte (auto) [facility] CenterCreatine Kinase [id number] 15:14:00 Test Item Value Reference Range Interpretation Comments Creatine Kinase MB (test code = 3.90 0-5.0 01685-1) [facility] Medical CenterTroponin [id number] 15:14:00 Test Item Value Reference Range Interpretation Comments Troponin I (test code = KPT6659) 0.054 0-0.300 [facility] CenterCreatine Nzijyg3572-18-07 15:07:00 Test Item Value Reference Range Interpretation Comments Creatine Kinase (test code = 2157-6) 297 30-200 H [facility] CenterHemoglobin A1c Qoshczx0191-97-87 08:04:00 Test Item Value Reference Range Interpretation Comments Hemoglobin A1c Percent (test code = 12.6 4.0-7.0 H Hemoglobin A1c Percent) [facility] CenterTriglycerides Kavdm6947-26-13 06:57:00 Test Item Value Reference Range Interpretation Comments Triglycerides Level (test code = 200 0-149 H 2571-8) [facility] CenterCholesterol Ewsew3667-04-01 06:57:00 Test Item Value Reference Range Interpretation Comments Cholesterol Level (test code = 2093-3) 239 0-199 H Less than 200 mg/dL Low Wfkj378 - 239 mg/dL Borderline Xnej504 mg/dl and greater High RiskCHRISTUS [facility] – Medical CenterLDL Hxmlifuzeci6801-42-58 06:57:00 Test Item Value Reference Range Interpretation Comments LDL Cholesterol (test code = 2089-1) 164 60-130 H [facility] Medical CenterHDL Czaadqtogna2905-40-31 06:57:00 Test Item Value Reference Range Interpretation Comments HDL Cholesterol (test code = 2085-9) 35 40-60 L [facility] CenterCholesterol/HDL Bufcy1218-88-19 06:57:00 Test Item Value Reference Range Interpretation Comments Cholesterol/HDL Ratio (test code = 6.8 3.9-4.7 H 9830-1) [facility] Medical CenterUrine Opiates Relfmh1501-18-44 16:18:00 Test Item Value Reference Range Interpretation Comments Urine Opiates Screen (test code = NEGATIVE NEGATIVE 69061-1) [facility] Medical CenterUrine Barbiturates Trgrhe3687-16-85 16:18:00 Test Item Value Reference Range Interpretation Comments Urine Barbiturates Screen (test code NEGATIVE NEGATIVE = 940075263) [facility] Medical CenterUrine Phencyclidine Qmfses6215-29-64 16:18:00 Test Item Value Reference Range Interpretation Comments Urine Phencyclidine Screen (test NEGATIVE NEGATIVE code = 25994-3) [facility] Medical CenterUrine Amphetamines Xjyzpb3210-11-62 16:18:00 Test Item Value Reference Range Interpretation Comments Urine Amphetamines Screen (test code NEGATIVE NEGATIVE = 06836-5) [facility] Medical CenterUrine Methamphetamines Fbytul6021-23-45 16:18:00 Test Item Value Reference Range Interpretation Comments Urine Methamphetamines Screen (test NEGATIVE NEGATIVE code = Urine Methamphetamines Screen) [facility] Medical CenterUrine Benzodiazepines Iwxulr2419-90-43 16:18:00 Test Item Value Reference Range Interpretation Comments Urine Benzodiazepines Screen (test NEGATIVE NEGATIVE code = 01131-9) [facility] Medical CenterUrine Cocaine Aewxfl3049-03-97 16:18:00 Test Item Value Reference Range Interpretation Comments Urine Cocaine Screen (test code = NEGATIVE NEGATIVE 3398-5) [facility] Medical CenterUrine Cannabinoids Elaxcy1894-19-19 16:18:00 Test Item Value Reference Range Interpretation Comments Urine Cannabinoids Screen (test code NEGATIVE NEGATIVE = 10580-6) THESE RESULTS ARE FOR MEDICAL TREATMENT ONLYTHIS REPORT CONTAINS UNCONFIRMED SCREENING RESULTS*POSITIVE RESULTS WILL BE CONFIRMED BY REFERENCE LAB UPON REQUEST CUT-OFFDRUG CLASS CONCENTRATION ng/mLAmphetamines 1000Methamphetamines 1000Cocaine 300Opiate 300Phencyclidine 25Cannabinoid 50Barbiturates 300Benzodiazepine 300Methadone 300[facility] HospitalU[facility] Methadone Zcvrvr5589-43-75 16:18:00 Test Item Value Reference Range Interpretation Comments Urine Methadone Screen (test code = NEGATIVE NEGATIVE 25553-3) THESE RESULTS ARE FOR MEDICAL TREATMENT ONLYTHIS REPORT CONTAINS UNCONFIRMED SCREENING RESULTS*POSITIVE RESULTS WILL BE CONFIRMED BY REFERENCE LAB UPON REQUEST CUT-OFFDRUG CLASS CONCENTRATION ng/mLAmphetamines 1000Methamphetamines 1000Cocaine Metabolite 300Opiate 300Phencyclidine 25Cannabinoid 50Barbiturates 300Benzodiazepine 300Methadone 300[facility] CenterProthrombin [id number] 14:13:00 Test Item Value Reference Range Interpretation Comments Prothrombin Time (test code = 5902-2) 13.6 11.9-14.5 [facility] Medical CenterProthromb Time International Fubfh5278-35-06 14:13:00 Test Item Value Reference Range Interpretation Comments Prothromb Time International Ratio 1.13 (test code = 6301-6) Oral Anticoagulant Therapy INR Values:1. Low Intensity Therapy 1.5 - 2.02. Moderate Intensity Therapy 2.0 - 3.03. High Intensity Therapy(1) 2.5 - 3.54. High Intensity Therapy(2) 3.0 - 4.05. Panic ValueINR > 5.0[facility] CenterActivated Partial Thromboplast Sgmn2848-18-02 14:13:00 Test Item Value Reference Range Interpretation Comments Activated Partial Thromboplast Time 27.6 23.8-35.5 (test code = 85788-8) [facility] Medical CenterTotal Konvyuoas6103-05-39 14:10:00 Test Item Value Reference Range Interpretation Comments Total Bilirubin (test code = 1975-2) 0.6 0.2-1.2 [facility] Medical CenterAspartate Amino Transf (AST/SGOT)2017-10-23 14:10:00 Test Item Value Reference Range Interpretation Comments Aspartate Amino Transf (AST/SGOT) (test 36 5-34 H code = Aspartate Amino Transf (AST/SGOT)) [facility] Medical CenterAlanine Aminotransferase (ALT/SGPT)2017-10-23 14:10:00 Test Item Value Reference Range Interpretation Comments Alanine Aminotransferase (ALT/SGPT) 34 0-55 (test code = 1742-6) [facility] Medical CenterTotal Zzeueyh1549-18-31 14:10:00 Test Item Value Reference Range Interpretation Comments Total Protein (test code = 2885-2) 7.3 6.5-8.1 [facility] Medical CenterAlbumin2018-06-04 14:10:00 Test Item Value Reference Range Interpretation Comments Albumin (test code = 1751-7) 4.0 3.5-5.0 [facility] Medical CenterGlobulin2018-06-04 14:10:00 Test Item Value Reference Range Interpretation Comments Globulin (test code = 54988-5) 3.3 2.3-3.5 [facility] CenterAlbumin/Globulin Wfzyh6440-44-30 14:10:00 Test Item Value Reference Range Interpretation Comments Albumin/Globulin Ratio (test code = 1.2 0.8-2.0 1759-0) [facility] CenterAlkaline Sfluvrtszuw6253-85-22 14:10:00 Test Item Value Reference Range Interpretation Comments Alkaline Phosphatase (test code = 109 40-150 6768-6) [facility] CenterB-Type Natriuretic Kpwsyhc9409-11-23 14:10:00 Test Item Value Reference Range Interpretation Comments B-Type Natriuretic Peptide (test code = 92.8 0-100 89163-3) [facility] CenterAmylase Pqsfh8646-94-61 14:10:00 Test Item Value Reference Range Interpretation Comments Amylase Level (test code = 1798-8) 126 25-125 H [facility] CenterLipase2018-06-04 14:10:00 Test Item Value Reference Range Interpretation Comments Lipase (test code = 3040-3) 98 8-78 H [facility] CenterD-Dimer Quantitative (PE/DVT)2017-10-23 14:02:00 Test Item Value Reference Range Interpretation Comments D-Dimer Quantitative (PE/DVT) (test 0.49 0.00-0.45 H code = 99216-2) [facility] CenterDirect Viwadidfy4257-26-24 13:47:00 Test Item Value Reference Range Interpretation Comments Direct Bilirubin (test code = 22198-5) 0.2 0.0-5.0 [facility] CenterMagnesium Dahpu9420-28-00 06:52:00 Test Item Value Reference Range Interpretation Comments Magnesium Level (test code = 64711-2) 1.5 1.3-2.1 [facility] CenterUrine [id number] 05:09:00 Test Item Value Reference Range Interpretation Comments Urine WBC (test code = 5821-4) NONE 0-5 [facility] CenterU[facility] [id number] 05:09:00 Test Item Value Reference Range Interpretation Comments Urine RBC (test code = 35576-9) NONE 0-5 [facility] Center[facility] Iqoudzbv6490-51-57 05:09:00 Test Item Value Reference Range Interpretation Comments Urine Bacteria (test code = 68589-0) NONE NONE [facility] CenterUrine Epithelial Jegwm3594-79-32 05:09:00 Test Item Value Reference Range Interpretation Comments Urine Epithelial Cells (test code = NONE NONE 73545-3) [facility] CenterUrine Specific Ncbgfdu3744-37-04 04:46:00 Test Item Value Reference Range Interpretation Comments Urine Specific Volcano (test code = 1.010 1.010-1.025 5811-5) [facility] CenterUrine [id number] 04:46:00 Test Item Value Reference Range Interpretation Comments Urine pH (test code = 06598-0) 8 5-7 H [facility] Leukocyte Pexnwwrw7885-26-57 04:46:00 Test Item Value Reference Range Interpretation Comments Urine Leukocyte Esterase (test code NEGATIVE NEGATIVE = 5799-2) [facility] Jxdpzap1652-88-00 04:46:00 Test Item Value Reference Range Interpretation Comments Urine Nitrite (test code = 27057-4) NEGATIVE NEGATIVE [facility] CenterUrine Nxsievb0749-54-69 04:46:00 Test Item Value Reference Range Interpretation Comments Urine Protein (test code = 5804-0) NEGATIVE NEGATIVE [facility] CenterUrine Glucose (UA)2017-03-05 04:46:00 Test Item Value Reference Range Interpretation Comments Urine Glucose (UA) (test code = NEGATIVE NEGATIVE 2349-9) [facility] CenterUrine Nnlrcod5297-20-39 04:46:00 Test Item Value Reference Range Interpretation Comments Urine Ketones (test code = 33217-2) NEGATIVE NEGATIVE [facility] CenterUrine Qtxotzcazrfo4569-50-97 04:46:00 Test Item Value Reference Range Interpretation Comments Urine Urobilinogen (test code = 0.2 0.2-1 23356-6) [facility] CenterUrine Nzlgironj5263-18-22 04:46:00 Test Item Value Reference Range Interpretation Comments Urine Bilirubin (test code = 1978-6) NEGATIVE NEGATIVE [facility] CenterUrine Hauhe2443-04-89 04:46:00 Test Item Value Reference Range Interpretation Comments Urine Blood (test code = 45241-9) 2+ NEGATIVE H [facility] CenterUrine Xiazu5190-25-66 04:46:00 Test Item Value Reference Range Interpretation Comments Urine Color (test code = 5778-6) YELLOW YELLOW [facility] CenterUrine Xpnldaw6079-25-39 04:46:00 Test Item Value Reference Range Interpretation Comments Urine Clarity (test code = 68525-6) CLEAR CLEAR [facility] CenterCTA BRAIN [facility] [address] [address] Patient Name: FAITH VANCE MR #: [id number] : 1960 Age/Sex: 57/M Req #: [id number] Adm Physician: ALEXIS COX MD Ordered by: ALEXIS COX MD Report #: [id number] Location: [facility]/Bed: [place] [address] Procedure: [id number] CT/CTA BRAIN Exam Date: 10/24/17 Exam Time: [...] stenosis in the left paraophthalmic segment due tohard and soft plaque. Nonstenotic hard plaque in the left cavernous segment. Middle cerebral arteries: Patent, no abnormalities in the M1 and proximal M2 segments. Anterior cerebral arteries: Patent, no abnormalities in the A1 and A2 segments. Vertebral arteries: Calcified plaque bilaterally result inapproximately 50% stenosis. Basilar artery: Patent, no abnormalities. [...] COPY TO: ALEXIS COX MDCT BRAIN WO [place] [address] PatientName: FAITH VANCE MR #: [id number] : 1960 Age/Sex: 57/M Req #: [id number] Adm Physician: Ordered by: KHAI WAHL MD Report #: [id number] Location: ER Room/Bed: _ Procedure: [id number] CT/CT BRAIN WO Exam Date: 10/23/17 Exam [...] Electronically SignedBy: ANA MARIA ARTEAGA MD on 10/23/17 164 Transcribed By: ANDREE on 10/23/17 1643 COPY TO: KHAI WAHL V MDCTA CHEST [place] [address] PatientName: FAITH VANCE MR #: [id number] : 1960 Age/Sex: 57/M Req #: [id number] Adm Physician: Ordered by: KHAI WAHL MD Report #: [id number] Location: ER Room/Bed: __ Procedure: [id number] CT/CTA CHEST Exam Date: 10/23/17 Exam Time: [...] reviewed and is below limits set by [facility]). FINDINGS: Lines and Tubes: Pacemaker [...] 10/23/17 162 COPY TO: KHAI WAHL V [facility] (PORTABLE) [place] [address] Patient Name: FAITH VANCE MR #: [id number] : 1960 Age/Sex: 57/M Req #: [id number] Adm Physician: Ordered by: KHAI WAHL MD Report #: [id number] Location: ER Room/Bed: _ Procedure: [id number] DX/CHEST SINGLE (PORTABLE) Exam Date: 10/23/17 Exam [...] 10/23/17 1443 COPY TO: KHAI WAHL V [place] [address] PatientName: FAITH VANCE MR #: [id number] : 1960 Age/Sex: 56/M Req #: [id number] Adm Physician: Ordered by: JACQUELYN MONTES DE OCA MD Report #: [id number] Location: ER Room/Bed: Procedure: [id number] CT/CT BRAIN WO Exam Date: Exam Time: [...] MONTES DE OCA MDCT CERVICAL SPINE WO [place] [address] PatientName: FAITH VANCE MR #: [id number] : 1960 Age/Sex: 56/M Req #: [id number] Adm Physician: Ordered by: JACQUELYN MONTES DE OCA MD Report #: [id number] Location: ER Room/Bed: Procedure: [id number] CT/CT CERVICAL SPINE WO Exam Date: Exam [...] 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 No significant foraminal stenosis.. IMPRESSION: [...] 04/04/17206 COPY TO: JACQUELYN MONTES DE OCA [facility] ([facility]) [place] [address] PatientName: FAITH VANCE MR #: [id number] : 1960 Age/Sex: 56/M Req #: [id number] Adm Physician: Ordered by: JACQUELYN MONTES DE OCA MD Report #: [id number] Location: ER Room/Bed: Procedure: [id number] DX/CHEST SINGLE (PORTABLE) Exam Date: 04/04/17 Exam [...] OCA MDHIP RIGHT 2-3 VW (+/- PELVIS) [place] [address] PatientName: FAITH VANCE MR #: [id number] : 1960 Age/Sex: 56/M Req #: [id number] Adm Physician: Ordered by: JACQUELYN MONTES DE OCA MD Report #: [id number] Location: ER Room/Bed: Procedure: DX/HIP RIGHT 2-3 [...] DE OCA MDSP LUMBAR, COMPLETE MIN 4VW [place] [address] PatientName: FAITH VANCE MR #: [id number] : 1960 Age/Sex: 56/M Req #: [id number] Adm Physician: Ordered by: JACQUELYN MONTES DE OCA MD Report #: [id number] Location: ER Room/Bed: Procedure: DX/SP LUMBAR, COMPLETE MIN 4VW Exam Date: 04/04/17 Exam Time: 0108 REPORT STATUS: Signed SP LUMBAR, COMPLETE MIN 4VW Comparison: CT 08/10/2016 Clinical history: Status post fall with lowerback pain Findings: Postoperative changes from posterior fusion from left L4 vertebral body to L5-N2kfwfot and posterior decompression. No evidence of hardware [...] JACQUELYN MONTES DE OCA MDUS ABDOMEN COMPLETE [place] [address] PatientName: FAITH VANCE MR #: [id number] : 1960 Age/Sex: 56/M Req #: [id number] Adm Physician: NICHELLE PALACIOS MD Ordered by: SCOTT AMIN MD Report #: [id number] Location: [facility] Room/Bed: [place] [address] Procedure: [id number] US/US ABDOMEN COMPLETE Exam Date: 03/08/17 Exam [...] on 03/08/17 1040 COPY TO: SCOTT AMIN [facility] SINGLE (PORTABLE) [place] [address] PatientName: FAITH VANCE MR #: [id number] : 1960 Age/Sex: 56/M Req #: [id number] Adm Physician: Ordered by: JACQUELYN MONTES DE OCA MD Report #: [id number] Location: ER Room/Bed: Procedure: [id number] DX/CHEST SINGLE (PORTABLE) Exam Date: 03/05/17 Exam [...]
[2022-02-01] MEDS ORDERED: HYDROMORPHONE HCL 1 MG/ML INJ ONE (03:18)
[2022-02-01] MEDS ORDERED: ONDANSETRON 4 MG/2 ML VIAL ONE (03:19)
[2022-02-01] MEDS ORDERED: NA CHLORIDE 0.9% 100 ML ONE (03:19)
[2022-02-01 05:24] LABS: Absolute Lymphocytes (CBC) 1.5 K/uL (0.7-4.9); Hematocrit 34.4 % (39.6-49.0); Lymphocytes % 19.1 % (15.3-44.8); MCV 89.9 fL (80-100); MPV 7.3 fL (7.6-11.3); RBC Red Blood Cell Count 3.82 M/uL (4.33-5.43)
[2022-02-01 05:47] LABS: Potassium 4.6 mmol/L (3.5-5.1); Troponin High Sensitivity 23.7 pg/mL (<58.9)
--- NOTE | 2022-02-01 09:45 | ER ---
Nurse's Notes [facility] Name: Ernie Rooney Age: 61 yrs Sex: Male : 1960 Arrival Date: 02/01/2022 Time: 02:41 Bed 7 Private MD: Diagnosis: Chest pain, unspecified Presentation: 02/01 02:41 Chief complaint: EMS states: called out for chronic chest/back pain. Coronavirus as6 screen: At this time, the client does not indicate any symptoms associated with coronavirus-19. Ebola Screen: No symptoms or risks identified at this time. Initial Sepsis Screen: Does the patient meet any 2 criteria? No. Patient's initial sepsis screen is negative. Does the patient have a suspected source of infection? No. Patient's initial sepsis screen is negative. Risk Assessment: Do you want to hurt yourself or someone else? Patient reports no desire to harm self or others. Onset of symptoms was February 01, 2022 at 01:00. 02:41 Method Of Arrival: EMS: [facility] as6 02:41 Acuity: TONE 3 as6 02:44 Care prior to arrival: Medication(s) given: ASA, 81 mg, x 4, IV initiated. 20 GA, in as6 the left forearm. Historical: - Allergies: 02:43 NKA; as6 - Home Meds: 02:43 albuterol sulfate 90 mcg/actuation Inhl aepb [Active]; cyclobenzaprine 10 mg Oral tab 1 as6 tab as needed [Active]; apixaban 5 mg Oral tab 1 tab 2 times per day [Active]; aspirin 81 mg Oral chew [Active]; atorvastatin 40 mg Oral tab 1 tab once daily [Active]; fenofibrate micronized 200 mg Oral Tb24 1 cap once daily [Active]; furosemide 40 mg Oral tab 1 tab once daily [Active]; gabapentin 800 mg Oral tab 1 tab 3 times per day [Active]; glipizide 10 mg Oral tab 1 tab once daily [Active]; Humulin N Pen 100 unit/mL (3 mL) Sub-Q inpn [Active]; levothyroxine 50 mcg Tb24 1 cap once daily [Active]; lisinopril 2.5 mg Oral tab 1 tab once daily [Active]; metformin 500 mg Oral tab 1 tab daily [Active]; omeprazole 20 mg Oral cpDR 1 cap once daily [Active]; spironolactone 25 mg Oral tab 1 tab once daily [Active]; tamsulosin 0.4 mg Oral Tb24 1 cap once daily [Active]; venlafaxine 75 mg Oral tab 1 tab 2 times per day [Active]; - PMHx: 02:43 Arthritis; Back pain; CVA; Depression; Diabetes - NIDDM; Fibromyalgia; GERD; High as6 Cholesterol; Hyperlipidemia; Hypertension; Hypertensive disorder; Hypothyroidism; Left sided weakness from previous CVA; Myocardial infarction; Pacemaker; - PSHx: 02:43 bilat BKA's; bypass; CABG; as6 - Immunization history:: Client reports receiving the 2nd dose of the Covid vaccine. - Social history:: Smoking status: Patient/guardian denies using tobacco. Screenin:45 Abuse screen: Denies threats or abuse. Denies injuries from another. Nutritional as6 screening: No deficits noted. Tuberculosis screening: No symptoms or risk factors identified. Fall Risk None identified. Assessment: 02:44 General: Appears uncomfortable, Behavior is calm, cooperative. Pain: Complains of pain as6 in back and chest Quality of pain is described as aching, sharp, shooting. Neuro: Level of Consciousness is awake, alert. Cardiovascular: Reports chest pain. Respiratory: Respiratory effort is even, unlabored. 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 05:47 Reassessment: Patient appears in no apparent distress at this time. as6 09:10 Reassessment: Patient appears in no apparent distress at this time. Patient and/or vg1 family updated on plan of care and expected duration. Pain level reassessed. Patient is alert, oriented x 3, equal unlabored respirations, skin warm/dry/pink. c/o pain 7/10; provider notified. Vital Signs: 02:41 BP 134 / 84; Pulse 86; Resp 18; Temp 98.5(O); Pulse Ox 100% on R/A; Weight 71.21 kg as6 (R); Height 5 ft. 7 in. (170.18 cm) (R); Pain 9/10; 03:30 BP 140 / 75; Pulse 81; Resp 21; Pulse Ox 98% ; jj7 04:30 BP 115 / 58; Pulse 84; Resp 84; Pulse Ox 98% ; jj7 05:47 BP 129 / 70; Pulse 84; Resp 22 S; Pulse Ox 100% on R/A; as6 06:53 BP 123 / 65; Pulse 79; Resp 16; Pulse Ox 100% ; jj7 09:10 BP 117 / 73; Pulse 73; Resp 15; Pulse Ox 100% on R/A; vg1 11:54 BP 135 / 74; Pulse 72; Resp 13; Pulse Ox 100% ; ap3 02:41 Body Mass Index 24.59 (71.21 kg, 170.18 cm) as6 ED Course: 02:41 Patient arrived in ED. as6 02:43 Triage completed. as6 02:43 Angel Merlos MD is Attending Physician. kdr 02:44 Arm band placed on. as6 02:45 Bed in low position. Call light in reach. Side rails up X2. Client placed on continuous as6 cardiac and pulse oximetry monitoring. NIBP monitoring applied. 03:00 Enoc Sahu RN is Primary Nurse. as6 03:15 XRAY Chest (1 view) In Process Unspecified. EDMS 03:20 Troponin HS Sent. jj7 03:20 CBC with Diff Sent. jj7 03:20 Basic Metabolic Panel Sent. jj7 03:59 Basic Metabolic Panel Sent. jj7 03:59 CBC with Diff Sent. jj7 03:59 Troponin HS Sent. jj7 07:19 Attending Physician role handed off by Angel Merlos MD caitlyn 07:19 Mustapha Cole MD is Attending Physician. caitlyn 08:10 Primary Nurse role handed off by Enoc Sahu RN bd 09:09 Violeta Friedman, SHEBA is Primary Nurse. vg1 09:45 Kavin Keenan MD is Referral Physician. caitlyn 11:49 No provider procedures requiring assistance completed. IV discontinued, intact, ap3 bleeding controlled, No redness/swelling at site. Pressure dressing applied. Administered Medications: 03:19 Drug: Dilaudid (HYDROmorphone) 2 mg Route: IVP; Site: left forearm; as6 03:51 Follow up: Response: No adverse reaction; Pain is decreased jj7 05:20 Follow up: Response: No adverse reaction; Marked relief of symptoms; Pain is decreased jj7 03:19 Drug: Zofran (Ondansetron) 4 mg Route: IVP; Site: left forearm; as6 05:20 Follow up: Response: No adverse reaction jj7 10:40 Drug: Eliquis (apixaban) 5 mg Route: PO; vg1 11:51 Follow up: Response: No adverse reaction ap3 10:40 Drug: Lisinopril 5 mg Route: PO; vg1 11:52 Follow up: Response: No adverse reaction ap3 Medication: 11:50 VIS not applicable for this client. ap3 Outcome: 09:45 Discharge ordered by . caitlyn 11:49 Discharged to home via wheelchair. ap3 11:49 Condition: good 11:49 Discharge instructions given to patient, Instructed on discharge instructions, follow up and referral plans. the need for admit, Demonstrated understanding of instructions, follow-up care, medications. 11:51 Patient left the ED. ap3 Signatures: Dispatcher [employer] EDMS Katlin Harris Corey, MD MD cha Rittger, Kevin, MD MD kdr Prokisch, Amanda RN RN ap3 Violeta Friedman RN RN vg1 Enoc Sahu RN RN as6 Marjorie Bullard RN RN jj7
--- NOTE | 2022-02-01 09:45 | EDPHYS ---
Physician Documentation [facility] Name: Ernie Rooney Age: 61 yrs Sex: Male : 1960 Arrival Date: 02/01/2022 Time: 02:41 Bed 7 Private MD: ED Physician Mustapha Cole HPI: 02/01 04:23 This 61 yrs old Male presents to ER via EMS with complaints of Chest pain. kdr 04:23 The patient or guardian reports chest pain that is located primarily in the anterior kdr chest wall, left. Onset: suddenly, just prior to arrival, 1.5 hour(s) ago. The pain radiates to the left shoulder. Associated signs and symptoms: The patient has no apparent associated signs or symptoms. The chest pain is described as sharp, stabbing. Duration: The patient or guardian reports a single episode, that is still ongoing, and unchanged, and worsening, Stronger than usual. Modifying factors: The symptoms are alleviated by nothing. the symptoms are aggravated by nothing. Severity of pain: At its worst the pain was moderate severe incapacitating in the emergency department the pain is unchanged. The patient has experienced similar episodes in the past, chronically, Patient has been seen in this ED numerous times for same or similar complaints. In review of his past medical history, he has noted that he was seen here around the first of this month. At that time he had a cardiac cath and was noted to have some lesions of but otherwise be stable with cardiology planning for aggressive medical management. Historical: - Allergies: 02:43 NKA; as6 - Home Meds: 02:43 albuterol sulfate 90 mcg/actuation Inhl aepb [Active]; cyclobenzaprine 10 mg Oral tab 1 as6 tab as needed [Active]; apixaban 5 mg Oral tab 1 tab 2 times per day [Active]; aspirin 81 mg Oral chew [Active]; atorvastatin 40 mg Oral tab 1 tab once daily [Active]; fenofibrate micronized 200 mg Oral Tb24 1 cap once daily [Active]; furosemide 40 mg Oral tab 1 tab once daily [Active]; gabapentin 800 mg Oral tab 1 tab 3 times per day [Active]; glipizide 10 mg Oral tab 1 tab once daily [Active]; Humulin N Pen 100 unit/mL (3 mL) Sub-Q inpn [Active]; levothyroxine 50 mcg Tb24 1 cap once daily [Active]; lisinopril 2.5 mg Oral tab 1 tab once daily [Active]; metformin 500 mg Oral tab 1 tab daily [Active]; omeprazole 20 mg Oral cpDR 1 cap once daily [Active]; spironolactone 25 mg Oral tab 1 tab once daily [Active]; tamsulosin 0.4 mg Oral Tb24 1 cap once daily [Active]; venlafaxine 75 mg Oral tab 1 tab 2 times per day [Active]; - PMHx: 02:43 Arthritis; Back pain; CVA; Depression; Diabetes - NIDDM; Fibromyalgia; GERD; High as6 Cholesterol; Hyperlipidemia; Hypertension; Hypertensive disorder; Hypothyroidism; Left sided weakness from previous CVA; Myocardial infarction; Pacemaker; - PSHx: 02:43 bilat BKA's; bypass; CABG; as6 - Immunization history:: Client reports receiving the 2nd dose of the Covid vaccine. - Social history:: Smoking status: Patient/guardian denies using tobacco. ROS: 04:23 Constitutional: Negative for fever, chills, and weight loss, Eyes: Negative for injury, kdr pain, redness, and discharge, ENT: Negative for injury, pain, and discharge, Neck: Negative for injury, pain, and swelling, Respiratory: Negative for shortness of breath, cough, wheezing, and pleuritic chest pain, Abdomen/GI: Negative for abdominal pain, nausea, vomiting, diarrhea, and constipation, Back: Negative for injury and pain, : Negative for injury, bleeding, discharge, and swelling, MS/Extremity: Negative for injury and deformity, Skin: Negative for injury, rash, and discoloration, Neuro: Negative for headache, weakness, numbness, tingling, and seizure activity. Psych: Negative for depression, anxiety, suicide ideation, homicidal ideation, and hallucinations, Allergy/Immunology: Negative for hives, rash, and allergies, Endocrine: Negative for neck swelling, polydipsia, polyuria, polyphagia, and marked weight changes, Hematologic/Lymphatic: Negative for swollen nodes, abnormal bleeding, and unusual bruising. 04:23 Cardiovascular: Positive for chest pain, Negative for edema, orthopnea, palpitations, paroxysmal nocturnal dyspnea. Exam: 04:23 Constitutional: This is a well developed, well nourished patient who is awake, alert, kdr and in no acute distress. Head/Face: Normocephalic, atraumatic. Eyes: Pupils equal round and reactive to light, extra-ocular motions intact. Lids and lashes normal. Conjunctiva and sclera are non-icteric and not injected. Cornea within normal limits. Periorbital areas with no swelling, redness, or edema. Neck: Trachea midline, no thyromegaly or masses palpated, and no cervical lymphadenopathy. Supple, full range of motion without nuchal rigidity, or vertebral point tenderness. No Meningismus. Chest/axilla: Normal chest wall appearance and motion. Nontender with no deformity. No lesions are appreciated. Cardiovascular: Regular rate and rhythm with a normal S1 and S2. No gallops, murmurs, or rubs. Normal PMI, no JVD. No pulse deficits. Respiratory: Lungs have equal breath sounds bilaterally, clear to auscultation and percussion. No rales, rhonchi or wheezes noted. No increased work of breathing, no retractions or nasal flaring. Abdomen/GI: Soft, non-tender, with normal bowel sounds. No distension or tympany. No guarding or rebound. No evidence of tenderness throughout. Back: No spinal tenderness. No costovertebral tenderness. Full range of motion. Skin: Warm, dry with normal turgor. Normal color with no rashes, no lesions, and no evidence of cellulitis. Neuro: Awake and alert, GCS 15, oriented to person, place, time, and situation. Cranial nerves II-XII grossly intact. Motor strength 5/5 in all extremities. Sensory grossly intact. Cerebellar exam normal. Normal gait. Psych: Awake, alert, with orientation to person, place and time. Behavior, mood, and affect are within normal limits. 04:23 Musculoskeletal/extremity: Bilateral BKA. 04:43 ECG was reviewed by the Attending Physician. kdr Vital Signs: 02:41 BP 134 / 84; Pulse 86; Resp 18; Temp 98.5(O); Pulse Ox 100% on R/A; Weight 71.21 kg as6 (R); Height 5 ft. 7 in. (170.18 cm) (R); Pain 9/10; 03:30 BP 140 / 75; Pulse 81; Resp 21; Pulse Ox 98% ; jj7 04:30 BP 115 / 58; Pulse 84; Resp 84; Pulse Ox 98% ; jj7 05:47 BP 129 / 70; Pulse 84; Resp 22 S; Pulse Ox 100% on R/A; as6 06:53 BP 123 / 65; Pulse 79; Resp 16; Pulse Ox 100% ; jj7 09:10 BP 117 / 73; Pulse 73; Resp 15; Pulse Ox 100% on R/A; vg1 11:54 BP 135 / 74; Pulse 72; Resp 13; Pulse Ox 100% ; ap3 02:41 Body Mass Index 24.59 (71.21 kg, 170.18 cm) as6 MDM: 04:23 HEART Score: History: Highly Suspicious (2), ECG: Non specific repolarization kdr disturbance / LBTB / PM (1), Age: > 45 and < 65 years (1), Risk Factors: 1 or 2 risk factors (1), Troponin: < or = 1 x Normal Limit (0). Data reviewed: vital signs, nurses notes, lab test result(s), radiologic studies. 07:19 Patient medically screened. [facility] 02/01 02:59 Order name: Basic Metabolic Panel; Complete Time: 07:00 [facility] 02/01 02:59 Order name: CBC with Diff; Complete Time: 07:00 [facility] 02/01 02:59 Order name: Troponin HS; Complete Time: 07:00 [facility] 02/01 02:59 Order name: XRAY Chest (1 view) [facility] 02/01 09:08 Order name: Troponin High Sensitivity; Complete Time: 09:45 ap3 02/01 02:59 Order name: EKG; Complete Time: 03:00 [facility] 02/01 02:59 Order name: Cardiac monitoring; Complete Time: 03:00 [facility] 02/01 02:59 Order name: EKG - Nurse/Tech; Complete Time: 03:00 [facility] 02/01 02:59 Order name: IV Saline Lock; Complete Time: 03:00 [facility] 02/01 02:59 Order name: Labs collected and sent; Complete Time: 03:19 [facility] 02/01 02:59 Order name: O2 Per Protocol; Complete Time: 03:00 [facility] 02/01 02:59 Order name: O2 Sat Monitoring; Complete Time: 03:00 kdr EC:43 Rate is 86 beats/min. Rhythm is regular, Paced with No ectopy. QRS Steele is Normal. DC kdr interval is normal. QRS interval is normal. Clinical impression: Paced rhythm. Administered Medications: 03:19 Drug: Dilaudid (HYDROmorphone) 2 mg Route: IVP; Site: left forearm; as6 03:51 Follow up: Response: No adverse reaction; Pain is decreased jj7 05:20 Follow up: Response: No adverse reaction; Marked relief of symptoms; Pain is decreased jj7 03:19 Drug: Zofran (Ondansetron) 4 mg Route: IVP; Site: left forearm; as6 05:20 Follow up: Response: No adverse reaction jj7 10:40 Drug: Eliquis (apixaban) 5 mg Route: PO; vg1 11:51 Follow up: Response: No adverse reaction ap3 10:40 Drug: Lisinopril 5 mg Route: PO; vg1 11:52 Follow up: Response: No adverse reaction ap3 Disposition Summary: 02/01/22 09:45 Discharge Ordered Location: Home caitlyn Problem: new caitlyn Symptoms: have improved caitlyn Condition: Stable caitlyn Diagnosis - Chest pain, unspecified caitlyn Followup: caitlyn - With: Private Physician - When: 2 - 3 days - Reason: Recheck today's complaints, Continuance of care, Re-evaluation by your physician Followup: caitlyn - With: - When: 2 - 3 days - Reason: Recheck today's complaints, Re-evaluation by your physician Discharge Instructions: - Discharge Summary Sheet caitlyn - Nonspecific Chest Pain, Adult caitlyn - Nonspecific Chest Pain, Adult, [id number] caitlyn - Diabetes Mellitus and Nutrition, Adult caitlyn Forms: - Medication Reconciliation Form caitlyn - Thank You Letter caitlyn - Antibiotic Education caitlyn - Prescription Opioid Use [facility] Signatures: Dispatcher [employer] Mustapha Arredondo MD MD cha Rittger, Kevin, MD MD kdr Garcia, Victoria RN RN vg1 Enoc Sahu RN RN as6 Cecelia Haynes RN ap3 Marjorie Bullard RN jj7
[2022-02-01] MEDS ORDERED: lisinopriL 5 MG TAB ONE (10:46)
[2022-02-01] MEDS ORDERED: APIXABAN 5 MG TABLET ONE (10:47)
[2022-02-01 12:00] VITALS: TEMP 98.5
[2022-02-01 12:05] VITALS: O2SAT 100
[2022-02-01 12:09] VITALS: BP 117/73
--- NOTE | 2022-02-01 17:05 | RAD REPORT ---
EXAM DESCRIPTION: RAD - Chest Single View - 02/01/2022 3:13 am CLINICAL HISTORY: 61 years, Male, CHEST PAIN COMPARISON: 01/28/2022 FINDINGS: Single view of the chest was obtained portable. Prior films were compared. External EKG le ads within the [id number] limits diagnosis. The pelvic pacemaker via left subclavian. Sternotomy w ires and pericardiac clips correspond to previous CABG. The cardiomediastinal silhouette demonstrate to be unremarkable. The heart is not enlarged. The thoracic aorta is unremarkable. The pulmonary vasc ulature is normal distribution. Costophrenic angles are sharp. No areas of consolidation or masses are seen. The rest of the soft tissue and bony structures demonstrate to be unremarkable. IMPRESSION: Slight decreased lung volume. No acute cardiopulmonary disease seen. Pacemaker in place. Electronically signed by: Tato Dugan MD 02/01/2022 3:53 AM CDT Due to temporary technical issues with the PACS/Fluency reporting system, reports are being signed by the in house radiologists without review as a courtesy to insure prompt reporting. The interpreting radiologist is fully responsible for the content of the report.
--- NOTE | 2022-02-02 17:14 | EKG ---
Test Date: 2022-02-01 Test Time: 02:39:39 Box Blank Machine Operator Helper: DEVAN MEASUREMENT RESULTS: Intervals: Rate: 86 [place]: 196 QRSD: 158 QT: 430 QTc: 514 [place]: P: 73 [place]: 196 QRS: -42 T: 127 INTERPRETIVE STATEMENTS: Atrial-sensed ventricular-paced rhythm Abnormal ECG Compared to ECG 01/30/2022 17:58:51 No significant changes Electronically Signed On 02-02-22 17:07:12 CDT by Luca Royal
== END 2022-02-01 11:51 | disposition home or self-care (01) ==
LOC: ER 02:39
DX: R07.89 Other chest pain (principal); I10 Essential (primary) hypertension; E11.9 Type 2 diabetes mellitus without complications; Z95.0 Presence of cardiac pacemaker; Z95.1 Presence of aortocoronary bypass graft; Z86.73 Personal history of transient ischemic attack (TIA), and cerebral infarction without residual deficits; Z79.82 Long term (current) use of aspirin; Z79.4 Long term (current) use of insulin
CPT/HCPCS: 93005; 85025; 80048; 36415; 84484 ×2; 71045; J1170; J2405; 96374; 96375; 99284

== ENCOUNTER 2022-02-02 04:50 | Emergency (ER) | payer OTHER ==
--- OUTSIDE RECORDS SUMMARY | 2022-02-02 04:57 | XMS REPORT | Continuity of Care Document ---
:1960 Author Organization [facility] t Address [address] [place] [address] Care Team Providers Name Role Phone MONIKA HALL MD Primary Care Physician [id number] Attending Clinician Unavailable Harshal Zhu Attending Clinician [...] Clinician Unavailable NICHELLE PALACIOS Attending Clinician Unavailable [id number] Admitting Clinician Unavailable Nika Martin Admitting Clinician [...] Number Effective Date Expiration Date S willow [facility] [id number] NSH [place] [id number] 2018spring 00:00:00 [employer] [id number] 2004 LUCY Frankel 00:[facility]:00 [facility] [...] y of l artery l artery 00:00: [place] disease) disease) 00 Medica l Branch Anemia [...] Added automatic ally from request for surgery [id number] Troponin I Troponin I Disease Active 2019- [...] 00:00: [place] involving involving 00 Medi ur[place] 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 Type 2 Type 2 Disease Active 2019- Univers diabetes diabetes 01-17 ity of mellitus mellitus 00:00: [place] without without 00 Medical complicati complicati Br anch on, on, without without long-term long-term current current use of use of insulin insulin Essential Essential Disease Active Uni vers hypertensi hypertensi 01-17 it y of on on 00:00: [place] [id number] Medical Branch Other Other Disease Active Univers hyperlipid hyperlipid 01-17 it y of emia emia 00:00: [place] [id number] Medical Branch Stroke Stroke Disease Active Univers 5-12 ity of 00:00: [place] [facility] Left-sided Left-sided Disease Active U nivers weakness weakness 5- ity of 00:00: [place] [facility] Left sided Left sided Disease Active U nivers numbness numbness - ity of 00:00: [place] 00 Medical Branch S/P admn S/P admn Disease Active Unive rs tPA in tPA in 4-11 ity of diff fac diff fac 00:00: [place] w/n last w/n last 00 Medica l 24 hr bef 24 hr bef Bran ch adm to adm to crnt fac crnt fac Unstable Unstable Disease Active Unive rs angina angina 4-10 ity of 00:00: [place] [facility] Atypical Atypical Disease Active Unive rs chest pain chest pain 2-22 it y of 00:00: [place] [facility] Menan Chest pain Chest pain Problem Active [facility] Coronary CAD Problem Active [facility] artery (coronary [facility] disease artery Patient disease) Medical [place] Diabetic DKA Problem Active [facility] ketoacidos (diabetic Esme es is ketoacidos Patien t es) Medical [place] Hyperglyce Hyperglyce Problem Active [facility] bambi bambi [facility] Hypertensi Hypertensi Problem Active [facility] on on [facility] Pancreatit Pancreatit Problem Active [facility] is is [facility] Uncontroll Uncontroll Problem Active C [facility] ed ed [facility] diabetes diabetes Patien t mellitus mellitus Medica l Center Allergies, Adverse Reactions, Alerts Allergy Allergy Status Severity Reaction(s) Onset Inactive Treating Comm ents Source Name Type Date Date Clinician No Known DA Active U 2021-0 [facility]ie 3-22 [place] [facility] 00:[facility]: d 00 [facility] No Known DA Active U 2020-0 [facility] Allergie 3-22 [place] 00:00: d 00 [facility] No Known DA Active U 2017- [facility] Allergie 2-31 Clear s 00:00: Mejia 00 [facility] No Known DA Active U 2018-1 [facility] Allergie 2-31 Clear s 00:00: Mejia 00 [facility] No Known DA Active U 2018-0 [facility] Allergie 3-26 [place] 00:00: e 00 [facility] NO KNOWN Drug Active Univers ALLERGIE Class ity of S [place] [facility] Social History Social Habit Start Date Stop Date Quantity Comments Source History of Cigarette Smoker Universi ty of tobacco use [place] [facility] History SDOH University o f Alcohol Frequency [place] M edical Branch History SDOH University o f Alcohol Std [place] Medical Drinks Branch History SDOH University o f Alcohol Binge [place] Medic al Branch Exposure to 2021-10-30 2021-11-09 Unable to assess Univers ity of SARS-CoV-2 00:00:00 15:13:00 [facility] (event) Branch Alcohol intake 2021-11-05 2021-11-05 1.71 /d University of 00:00:00 00:00:00 [facility] Branch Tobacco Comment 2021-11-03 2021-11-03 quit 15 years ago Un iversity of 00:00:00 00:00:00 [place] [facility] Education 2021-10-27 2021-10-27 9 University of 00:00:00 00:00:00 [place] [facility] History SDOH 2020-03-16 2020-03-16 3 University o f Financial 00:00:00 00:00:00 [place] [facility] History SDOH Food 2020-03-16 2020-03-16 2 Univers ity of Worry 00:00:00 00:00:00 [place] [facility] History SDND Food 2020-03-16 2020-03-16 2 Univers ity of Scarcity 00:00:00 00:00:00 [place] [facility] History SDOH 2020-03-16 2020-03-16 1 University o f Transport Med 00:00:00 00:00:00 [place] Medic al Branch History SDOH 2020-03-16 2020-03-16 1 University o f Transport Non-Med 00:00:00 00:00:00 [place] M edical [facility] Alcohol Comment 2019-07-18 2019-07-18 quit drinking [employer] of 00:00:00 00:00:00 2013 but drank [facility] heavily before Branch this Tobacco use and 2018-07-14 2018-07-14 Never used Universit y of exposure 00:00:00 00:00:00 [facility] Sex [birth year] At [birth year] LUCY Sanders 00:00:00 00:00:00 Medical Center Smoking Status Start Date Stop Date Source Former smoker 2018-07-14 00:00:00 2018-07-14 00:00:00 Universi ty [facility] Medications Ordered Filled Start Stop Current Ordering [...] at 0215, 1 mL gabapentin 2021- Yes [id number] 300mg Take 1 Univers 300 mg 11-05 capsule by ity of capsule 00:00: 04:59 mouth 3 [place] 00 :00 (three) Medical times Branch daily for 10 days. gabapentin 2021- Yes [id number] 300mg Take 1 Univers 300 mg 11-05 capsule by ity of capsule 00:00: 04:59 mouth 3 [place] 00 :00 (three) Medical times Branch daily for 10 days. aspirin 81 2021- Yes [id number] 81mg Take 1 Univers mg chewable 6-16 07-17 tablet by it y of tablet 00:00: 04:59 mouth [place] 00 :00 daily for Medical 30 days. Branch aspirin 81 2021- Yes [id number] 81mg Take 1 Univers mg chewable 6-16 07-17 tablet by it y of tablet 00:00: 04:59 mouth [place] 00 :00 daily for Medical 30 days. Branch aspirin 81 2021- Yes [id number] 81mg Take 1 Univers mg chewable 6-16 07-17 tablet by it y of tablet 00:00: 04:59 mouth [place] 00 :00 daily for Medical 30 days. Branch proMETHazin Yes [id number] 25mg Take 1 Univers e 25 mg 6-03 tablet by ity of tablet 00:00: mouth [place] 00 every 6 Medical (six) Branch hours as needed for Nausea and Vomiting (N/V). proMETHazin Yes [id number] 25mg Take 1 Univers e 25 mg 6-03 tablet by ity of tablet 00:00: mouth [place] 00 every 6 Medical (six) Branch hours as needed for Nausea and Vomiting (N/V). proMETHazin 2022-0 Yes [id number] 25mg Take 1 Univers e 25 mg 6-03 tablet by ity of tablet 00:00: mouth [place] 00 every 6 Medical (six) Branch hours as needed for Nausea and Vomiting (N/V). fenofibrate 2021- No [id number] 134mg Take 1 Univers micronized -19 12- capsule by it y of 134 mg 00:00: 04:59 mouth [place] capsule 00 :00 daily for Medical 30 days. Branch lisinopriL 2021- No [id number] 2.5mg Take 1 Univers 2.5 mg -19 12- tablet by ity of tablet 00:00: 04:59 mouth [place] 00 :00 daily for Medical 30 days. Branch fenofibrate 2021- No [id number] 134mg Take 1 Univers micronized -19 12- capsule by it y of 134 mg 00:00: 04:59 mouth [place] capsule 00 :00 daily for Medical 30 days. Branch lisinopriL 2021- No [id number] 2.5mg Take 1 Univers 2.5 mg -19 12- tablet by ity of tablet 00:00: 04:59 mouth [place] 00 :00 daily for Medical 30 days. Branch fenofibrate 2021- No [id number] 134mg Take 1 Univers micronized -19 12- capsule by it y of 134 mg 00:00: 04:59 mouth [place] capsule 00 :00 daily for Medical 30 days. Branch lisinopriL 2021- No [id number] 2.5mg Take 1 Univers 2.5 mg -19 12- tablet by ity of tablet 00:00: 04:59 mouth [place] 00 :00 daily for Medical 30 days. Branch furosemide 2021- No [id number] 40mg Take 1 Univers 40 mg 5-30 [...] s: atrial fibrillati on calcitrioL 2021- No [id number] .5ug Take 1 Univers 0.5 mcg 5-30 06-30 capsule by ity o f capsule 00:00: 04:59 mouth [place] 00 :00 daily for Medical 30 days. Branch insulin NPH 2021- No [id number] 5U inject 5 Univers (HUMULIN N 5-30 06-30 Units ity of NPH U-100 00:00: 04:59 [place]ULIN[place] 00 :00 skin every Medic al 100 unit/mL evening Branc h injection for 30 days. atorvastati 2021- No [id number] 40mg Take 1 Univers n 40 mg 5-30 -30 tablet by ity of tablet 00:00: 04:59 mouth at [place] 00 :00 bedtime Medical for 30 Branch days. carvediloL 2021- No [id number] 3.125mg Take 1 Univers 3.125 mg 5-30 06-30 tablet by ity o f tablet 00:00: 04:59 mouth 2 [place] 00 :00 (two) Medical times Men[place] daily with meals for 30 days. furosemide 2021- No [id number] 40mg Take 1 Univers 40 mg 5-30 06-30 tablet by ity of tablet 00:00: 04:59 mouth [place] 00 :00 every Medical morning Branch and evening for 30 days. apixaban 5 2021- No [id number] 5mg Take 1 Univ ers mg tablet 5-30 06-30 tablet by ity of 00:00: 04:59 mouth 2 [place] 00 :00 (two) Medical times Men[place] daily for 30 days. Indication s: atrial fibrillati on calcitrioL 2021- No [id number] .5ug Take 1 Univers 0.5 mcg 5-30 06-30 capsule by ity o f capsule 00:00: 04:59 mouth [place] 00 :00 daily for Medical 30 days. Branch insulin NPH 2021- No [id number] 5U inject 5 Univers (HUMULIN N 5-30 06-30 Units ity of NPH U-100 00:00: 04:59 [place] INSULIN[place] 00 :00 skin every Medic al 100 unit/mL evening Branc h injection for 30 days. atorvastati 2021- No [id number] 40mg Take 1 Univers n 40 mg 5-30 06-30 tablet by ity of tablet 00:00: 04:59 mouth at [place] 00 :00 bedtime Medical for 30 Branch days. carvediloL 2021- No [id number] 3.125mg Take 1 Univers 3.125 mg 5-30 -30 tablet by ity o f tablet 00:00: 04:59 mouth 2 [place] 00 :00 (two) Medical times Branch daily with meals for 30 days. furosemide 2021- No [id number] 40mg Take 1 Univers 40 mg 5-30 [...] s: atrial fibrillati on calcitrioL 2021- No [id number] .5ug Take 1 Univers 0.5 mcg 5-30 -30 capsule by ity o f capsule 00:00: 04:59 mouth [place] 00 :00 daily for Medical 30 days. Branch insulin NPH 2021- No [id number] 5U inject 5 Univers (HUMULIN N 5-30 06-30 Units ity of NPH U-100 00:00: 04:59 [place] INSULIN[place] 00 :00 skin every Medic al 100 unit/mL evening Branc h injection for 30 days. atorvastati 2021- No [id number] 40mg Take 1 Univers n 40 mg 5-30 -30 tablet by ity of tablet 00:00: 04:59 mouth at [place] 00 :00 bedtime Medical for 30 Branch days. carvediloL 2021- No [id number] 3.125mg Take 1 Univers 3.125 mg 5-30 -30 tablet by ity o f tablet 00:00: 04:59 mouth 2 [place] 00 :00 (two) Medical times Branch daily with meals for 30 days. metFORMIN Yes [id number] 500mg Take 1 U nivers 500 mg 3-02 tablet by ity of tablet 00:00: mouth 2 [place] 00 (two) Medical times Branch daily with meals. metFORMIN 0 Yes [id number] 500mg Take 1 U nivers 500 mg 3-02 tablet by ity of tablet 00:00: mouth 2 [place] (two) Medical times Branch daily with meals. metFORMIN 0 Yes [id number] 500mg Take 1 U nivers 500 mg 3-02 tablet by ity of tablet 00:00: mouth 2 [place] (two) Medical times Branch daily with meals. albuterol Yes [id number] 2{puff} Inhale 2 Univers 90 2-21 Puffs 2 ity of mcg/actuati 00:00: (two) [place] on inhaler 00 times Medical daily. Branch collagenase Yes [id number] Use as Univers 250 2-21 directed ity of unit/gram 00:00: by office Juan J as ointment 00 Medical Branch cyclobenzap Yes [id number] 10mg Take 1 Univers rine 10 mg 2-21 tablet by ity of tablet 00:00: mouth 2 [place] (two) Medical times Branch daily as needed for Muscle Spasms. dextrometho Yes [id number] 10mL Take 10 mL Univers rphan-guaif 2-21 by mouth ity of enesin 00:00: every 6 [place] 10-100 mg/5 00 (six) Medical mL solution hours as Bran ch needed for Cough. HYDROcodone Yes 1{tbl} Take 1 Un charley -acetaminop 2-21 tablet by ity of hen 5-325 00:00: mouth [place] mg tablet 00 every 6 Medical (six) Branch hours as needed for Pain (scale 4-6). melatonin 3 0 Yes [id number] 3mg Take 1 Univers mg tablet 2-21 tablet by ity o f 00:00: mouth at [place] 00 bedtime. Medical Branch ondansetron 0 Yes [id number] 4mg Take 1 Univers 4 mg 2-21 tablet by ity of disintegrat 00:00: mouth [place] ing tablet 00 every 8 Medica l (eight) Branch hours as needed for Nausea and Vomiting (N/V). albuterol 0 Yes [id number] 2{puff} Inhale 2 Univers 90 2-21 Puffs 2 ity of mcg/actuati 00:00: (two) [place] on inhaler 00 times Medical daily. Branch collagenase Yes [id number] Use as Univers 250 2-21 directed ity of unit/gram 00:00: by office Juan J as ointment 00 Medical Branch cyclobenzap Yes [id number] 10mg Take 1 Univers rine 10 mg 2-21 tablet by ity of tablet 00:00: mouth 2 [place] 00 (two) Medical times Branch daily as needed for Muscle Spasms. dextrometho 0 Yes [id number] 10mL Take 10 mL Univers rphan-guaif 2-21 [...] Pain (scale 4-6). melatonin 3 0 Yes [id number] 3mg Take 1 Univers mg tablet 2-21 tablet by ity o f 00:00: mouth at [place] 00 bedtime. Medical Branch ondansetron 0 Yes [id number] 4mg Take 1 Univers 4 mg 2-21 tablet by ity of disintegrat 00:00: mouth [place] ing tablet 00 every 8 Medica l (eight) Branch hours as needed for Nausea and Vomiting (N/V). albuterol Yes [id number] 2{puff} Inhale 2 Univers 90 2-21 Puffs 2 ity of mcg/actuati 00:00: (two) [place] on inhaler 00 times Medical daily. Branch collagenase 0 Yes [id number] Use as Univers 250 2-21 directed ity of unit/gram 00:00: by office Juan J as ointment 00 Medical Branch cyclobenzap Yes [id number] 10mg Take 1 Univers rine 10 mg 2-21 tablet by ity of tablet 00:00: mouth 2 [place] 00 (two) Medical times Branch daily as needed for Muscle Spasms. dextrometho 0 Yes [id number] 10mL Take 10 mL Univers rphan-guaif 2-21 [...] for Pain (scale 4-6). melatonin 3 Yes [id number] 3mg Take 1 Univers mg tablet 2-21 tablet by ity o f 00:00: mouth at [place] 00 bedtime. Medical Branch ondansetron Yes [id number] 4mg Take 1 Univers 4 mg 2-21 tablet by ity of disintegrat 00:00: mouth [place] ing tablet 00 every 8 Medica l (eight) Branch hours as needed for Nausea and Vomiting (N/V). Aspirin 81 Aspirin 81 2018- No Alexis [address] Mg Tab.chew Mg Tab.chew 10-26 Brooke Frankel 00:00: 00:00 Patient 00 :00 [facility] Diflunisal Diflunisal 2015- No Todd Wynn [address] [facility] (Dolobid) (Dolobid) 01-17 500 Mg 500 Mg 00:00: 00:00 Patient Tablet, 500 Tablet, 500 00 :00 M edical Mg Oral Mg Oral [place] Ondansetron Ondansetron 2015- No Todd Wynn [address] Hcl Hcl 01-17 Premium as Luke s (Zofran*) 4 (Zofran*) 4 00:00: 00:00 needed for Patient Mg Tablet, Mg Tablet, 00 :00 Nausea M edical 4 Mg 4 Mg [place] Sublingual Sublingual Clopidogrel Clopidogrel Yes 75 Daily [...] [facility] nophen nophen needed for Patie nt ([place] [facility] 10-325 10-325 Center Tablet) 1 [...] Mg 20 Mg [facility] Capsule.dr Lind.dr [facility] Simvastatin Simvastatin Yes [address] 80 Mg 80 Mg [facility] Tablet Tablet Patient [facility] Tamsulosin Tamsulosin Yes Daily [facility] Hcl 0.4 Mg Hcl 0.4 Mg Esme es Cap.er.24h Cap.er.24h Pat [facility] Tramadol Tramadol Yes 50 Four Times C [...] Navid tietangela Mg Oral Mg Oral :00 [facility] Insulin Insulin 2016- No 40 [...] 06-17 [facility] Capsule., Capsule., 00:00 Patient :00 [facility] Insulin Insulin No Twice A [facility] [...] 25 Mg Oral 25 Mg Oral :00 [facility] Albuterol Albuterol [address] [...] 00:00 Patient Mg Oral Mg Oral :00 [facility] Methocarbam Methocarbam No 500 Three [...] 00:00 Patient Mg Oral Mg Oral :00 [facility] Nitroglycer Nitroglycer No .4 As [...] Manjula ent Gm Oral Gm Oral :00 [facility] Temazepam Temazepam [address] (Restoril) (Restoril) 11-23 Theresa kes 30 Mg 30 Mg 00:00 Patient Capsule, 30 Capsule, 30 :00 M edical Mg Oral Mg Oral Center Tizanidine Tizanidine No [address] Hcl 4 Mg Hcl 4 Mg 11-23 [facility]ukes Capsule, 4 Capsule, 4 00:00 Pa tient Mg Oral Mg Oral :00 [facility] Trazodone Trazodone No [address] Hcl 50 Mg Hcl 50 Mg 11-23 Luke s Tablet, 50 Tablet, 50 00:00 Pa tient Mg Oral Mg Oral :00 [facility] Venlafaxine Venlafaxine No 37.[address] [facility] Hcl 37.5 Mg Hcl 37.5 Mg 11-23 Day [facility] Tablet, Tablet, 00:00 Patient 37.5 Tab 37.5 Tab :00 Medical Oral Oral Center Cyclobenzap Cyclobenzap [address] rine Hcl 10 rine Hcl 10 12-19 Times A [facility] Mg Tablet, Mg Tablet, 00:00 Day Pa tient 10 Mg Oral 10 Mg Oral :00 [facility] ical [place] Gabapentin Gabapentin No [address] 300 Mg 300 Mg 12-19 Times A [facility] Capsule, Capsule, 00:00 Day Patien t 600 Mg Oral 600 Mg Oral :00 M [facility] Pregabalin Pregabalin No 150 Twice [...] Immunizations Ordered Filled Immunization Date Status Comments [facility] e Immunization Name Name Influenza Virus 2021-01-16 Completed Universit y of Vaccine 00:00:00 [facility] Influenza Virus 2021-01-16 Completed Universit y of Vaccine 00:00:00 [facility] Influenza Virus 2021-01-16 Completed Universit y of Vaccine 00:00:00 [facility] SARS-COV-2 COVID-19 2020-10-16 Completed Unive rsity of PEDRO/J&J VACCINE 00:00:00 [facility] SARS-COV-2 COVID-19 2020-10-16 Completed Unive rsity of PEDRO/J&J VACCINE 00:00:00 [facility] SARS-COV-2 COVID-19 2020-10-16 Completed Unive rsity of PEDRO/J&J VACCINE 00:00:00 [facility] Influenza Virus 2020-01-21 Completed Universit y of Vaccine 00:00:00 [facility] Influenza Virus 2020-01-21 Completed Universit y of Vaccine 00:00:00 [facility] Influenza Virus 2020-01-21 Completed Universit y of Vaccine 00:00:00 [facility] Zoster Vaccine 2019-07-17 Completed University of Recombinant 00:00:00 [facility] Zoster Vaccine 2019-07-17 Completed University of Recombinant 00:00:00 [facility] Zoster Vaccine 2019-07-17 Completed University of Recombinant 00:00:00 [facility] Td 2019-03-29 Completed University of 00:00:00 [facility] Td 2019-03-29 Completed University of 00:00:00 [facility] Td 2019-03-29 Completed University of 00:00:00 [facility] Influenza Virus 2018-02-18 Completed Universit y of Vaccine 00:00:00 [facility] Pneumococcal 2018-02-18 Completed University o f Polysaccharide, 00:00:00 [place] Med ical PPSV23 (PNEUMOVAX) [place] Influenza Virus 2018-02-18 Completed Universit y of Vaccine 00:00:00 [facility] Pneumococcal 2018-02-18 Completed University o f Polysaccharide, 00:00:00 [place] Med ical PPSV23 (PNEUMOVAX) [place] Influenza Virus 2018-02-18 Completed Universit y of Vaccine 00:00:00 [facility] Pneumococcal 2018-02-18 Completed University o f Polysaccharide, 00:00:00 [place] Med ical PPSV23 (PNEUMOVAX) [place] Influenza Virus 2008-03-19 Completed Universit y of Vaccine 00:00:00 [facility] Pneumococcal 2008-03-19 Completed University o f Polysaccharide, 00:00:00 [place] Med ical PPSV23 (PNEUMOVAX) Branch Influenza Virus 2008-03-19 Completed Universit y of Vaccine 00:00:00 [facility] Pneumococcal 2008-03-19 Completed University o f Polysaccharide, 00:00:00 [place] Med ical PPSV23 (PNEUMOVAX) Branch Influenza Virus 2008-03-19 Completed Universit y of Vaccine 00:00:00 [facility] Pneumococcal 2008-03-19 Completed University o f Polysaccharide, 00:00:00 [facility] [place] [facility] ical PPSV23 (PNEUMOVAX) Branch Vital Signs Vital Name Observation Time Observation Value Comments Source Systolic blood 2021-11-09 23:00:00 124 mm[Hg] Univer sity of pressure [facility] Diastolic blood 2021-11-09 23:00:00 69 mm[Hg] Unive rsity of [facility] Heart rate 2021-11-09 23:00:00 72 /min [facility] ty [facility] Respiratory rate 2021-11-09 23:00:00 25 /min [facility] saturation in 2021-11-09 23:00:00 98 /min University of Arterial blood by [place] Cognio uriel Pulse oximetry Branch Body temperature 2021-11-09 20:28:39 37.22 Sandy [facility] Body height 2021-11-09 20:16:00 170.2 cm [facility] Body weight 2021-11-09 20:16:00 71.215 kg [facility] BMI 2021-11-09 20:16:00 24.59 kg/m2 [facility] Systolic blood 2021-11-05 10:00:00 134 mm[Hg] Univer sity of [facility] Diastolic blood 2021-11-05 10:00:00 78 mm[Hg] Unive rsity of [facility] Heart rate 2021-11-05 10:00:00 81 /min [facility] ty [facility] Body temperature 2021-11-05 08:10:00 36.28 Sandy [facility] ersity [facility] Respiratory rate 2021-11-05 08:00:00 18 /min Univ ersity [facility] Oxygen saturation in 2021-11-05 08:00:00 99 /min University of Arterial blood by [employer] uriel Pulse oximetry Branch Body height 2021-11-05 05:48:00 170.2 cm [facility] Body weight 2021-11-05 05:48:00 71.215 kg [facility] BMI 2021-11-05 05:48:00 24.59 kg/m2 [facility] Procedures Procedure Date / Time Performing Clinician Source Performed B-TYPE NATRIURETIC 2022-01-30 18:10:00 LUCY [facility] ([facility]) [facility] XR CHEST 1 VW 2021-11-09 21:07:00 Troy Ku Mckenzie [facility] POCT GLUCOSE 2021-11-09 20:25:00 Troy Ku Mckenzie [facility] (AUTOMATED) [facility] MAGNESIUM 2021-11-09 20:19:00 [facility] TROPONIN I 2021-11-09 20:19:00 Troy Ku [facility] COMP. METABOLIC PANEL 2021-11-09 20:19:00 Troy Ku [facility] ([id number]) [facility] CBC WITH DIFF 2021-11-09 20:19:00 Troy Ku [facility] N-TERMINAL PRO-BNP 2021-11-09 20:19:00 Troy Ku [facility] XR CHEST 1 2021-11-05 06:38:35 Mihaela Martin [facility] [id number] 2020-08-11 00:00:00 ALDMO [facility] [id number] 2020-08-11 00:00:00 ALDMO [facility] [id number] 2020-08-11 00:00:00 ALDMO [facility] [id number] 2020-08-11 00:00:00 ALDMO [facility] Computed tomography 2017-10-24 00:00:00 ALEXIS [facility] of [facility] CT angiography of chest 2017-10-23 00:00:00 KHAI WAHL [facility] Computed tomography of 2017-10-23 00:00:00 KHAI WAHL [...] abdomen complete 2017-03-08 00:00:[address] [facility] Encounters Start End Encounter Admission Attending Care Care Encounter Source Date/Time Date/Time Type Type Clinicians Facility Department ID 2021-06-17 Outpatient [id number] ENCKY MALDONADO [id number] [facility] 10:24:03 [id number] 2021-06-17 Outpatient 3 [id number] ENCKY REF [id number] [facility] 10:22:04 [id number] 2020-08-23 Inpatient HCACL FERNANDO [id number] [facility] 17:41:00 84 [facility] 2020-04-04 Inpatient Marko, HCAMN HCAMN [id number] [facility] 14:40:00 Edward 33 [facility] 2019-10-15 Inpatient RADHA Shah, HCAPM ENDO [id number] [facility] 15:30:00 Finn [id number] [facility] 2022-01-30 2022-01-30 Lab [facility] [id number] 00:00:00 00:00:00 Requisitio [facility] 2022-01-30 2022-01-30 Lab [facility] [id number] 00:00:00 00:00:[address] [facility] 2021-11-09 2021-11-09 Emergency X KINGS, K [facility] [[email or web address] ERT [id number] Univers 15:15:00 18:32:00 ity of [facility] 2021-11-09 2021-11-09 Emergency Kings, K [facility] [[email or web address]] 1.2.840.114 [id number] Univers 15:15:00 18:32:00 Mckenzie PEREZ 350.1.13.10 i ty [facility] 4.2.7.2.686 [facility] [id number] [address] 2021-11-05 2021-11-05 Emergency X VERONICA, [facility] [[email or web address] ERT [id number] Univers 00:44:00 06:53:00 MIHAELA baugh [facility] 2021-11-05 2021-11-05 Emergency Veronica, [facility] [[email or web address]] [id number] Univers 00:44:00 06:53:00 Mihaela SILVESTREABHISHEK 350.1.13.10 ity of ADELIA 4.2.7.2.686 [facility] [id number] [facility] [address] 2021-11-04 2021-11-04 Transition RIVAS Feliciano 1.2.840.114 [id number] Univers 00:00:00 00:00:00 of Care Micaela DUQUE 350.1.13.10 it y of MARIE 4.2.7.2.686 [facility] [id number] [facility] [address] 2021-11-02 2021-11-03 Outpatient X BRAYDON, [facility] [[email or web address]] DARIUS [id number] Univers 22:35:00 15:46:00 OC baugh [facility] 2021-10-27 2021-10-29 Outpatient X DERRICK [facility] [[email or web address]] DARIUS [id number] Univers 17:41:00 14:03:00 ANA MARIA amauri [facility] 2021-07-21 2021-07-21 Outpatient Wong_H VFP VFP [id number] [facility] 06:58:00 06:58:00 [id number] Family Practic e 2020-10-30 2020-11-05 Inpatient EM ANNEL [facility] [id number] [facility] 16:50:00 13:52:00 Fede 41759 [facility] 2020-10-31 2020-10-31 Outpatient AMELIA Carrera LABO [id number] [facility] 08:22:00 08:22:00 Fede 73 [facility] 2020-10-28 2020-10-28 Hospital Radiology [facility] [[email or web address]] 1.2.840.114 [id number] 08:30:17 23:59:00 Encounter Sera 350.1.13.10 [place] 4.2.7.2.686 [place] [id number] 2020-10-122020-10-12 Outpatient R LUIS ANTONIOSalvador [facility] [id number] Univers 14:00:00 14:50:48 PERLA baugh [facility] 2020-10-06 2020-10-06 Office Ivana [facility] [[email or web address]] 1.2.840.114 [id number] 10:43:51 11:59:29 Visit Gina Perez 350.1.13.10 [place] 4.2.7.2.686 Piyush [id number] [facility] 205 [facility] 2020-08-19 2020-08-19 Outpatient MAURILIO, [facility] OPLA [id number] [facility] 07:13:00 07:13:00 DOES_NOT 89 [facility] 2020-08-10 2020-08-14 Inpatient EM ANNEL MontanezCL INTE.02 [id number] [facility] 09:09:00 18:56:[address] 2017-10-23 2017-10-27 [id number] 17:29:00 16:54:00 Inpatient ALEXIS 88 ke s [facility] 2017-04-03 2017-04-04 [facility] [id number] 23:17:00 03:53:00 Emergency LAIRD 56 Luke s Room [facility] 2017-03-05 2017-03-09 [facility] [id number] 06:54:00 10:58:00 Inpatient NICHELLE 46 Luke s (obs) [facility] 2017-01-04 2017-01-05 Discharged [facility] [id number] 10:33:00 18:56:00 Inpatient 61 Luke s (obs) [facility] Results Test Description Test Time Test Comments Results Result Comments Source B-type Natriuretic Factor (BNP) 2022-01-30 23:33:12 Test Item Value Reference Range Interpretation Comme nts BNP (test code = 62667-4) 443 pg/mL 0-100 H DIANE (test code = DIANE) Residential Sales Rep ID - ADRY Lab Interpretation (test code = 67295-5) [facility]normal [facility]2022-01-30 23:33:12 Test Item Value Reference Range Interpretation Comments BNP (test code = 79143-6) 443 pg/mL 0-100 H DIANE (test code = DIANE) Residential Sales Rep ID - ADRY Lab Interpretation (test Abnormal code = 26373-4) [facility] NAT[facility] (BNP)2022-01-30 23:33:12 Test Item Value Reference Range Interpretation Comments B-TYPE NATRIURETIC PEPTIDE (BEAKER) 443 pg/mL 0-100 H (test code = 700) Residential Sales Rep ID - ADRYTROPONIN [id number] 20:57:59 Test Item Value Reference Interpretation Comments Range TROPONIN I (test 0.017 ng/mL See_Comment [Automated code = 1662099346) message] The system which generated this result [...] biotin. Lab Interpretation Normal (test code = 36506-4) [id number] 20:54:59 Test Item Value Reference Range Interpretation Comments NT-proBNP (test code 6490 pg/mL See_Comment H [Autom ated = 7464565582) message] The system which generated this result transmitted reference range : <=125. The reference range was not used to interpret this result as normal/abnormal . DIANE (test code = DIANE) Biotin has been reported to cause a negative bias, interpret results relative to patient's use of biotin. Lab Interpretation Abnormal (test code = 95130-1) [facility] 20:46:35 Test Item Value Reference Range Interpretation Comments MAGNESIUM (test code = 7919891469) 1.5 mg/dL 1.7-2.4 L Lab Interpretation (test code = Abnormal 74819-9) [facility] (14970)2021-11-09 20:46:34 Test Item Value Reference Range Interpretation Comments NA (test code = 140 mmol/L 135-145 9505291301) K (test code = 3.9 mmol/L 3.5-5.0 4733883527) CL (test code = 111 mmol/L 98-108 H 2760504528) CO2 TOTAL (test code = 16 mmol/L 23-31 L 7187818976) AGAP (test code = 2-16 0221065134) BUN (test code = 14 mg/dL 7-23 1747331841) GLUCOSE (test code = 189 mg/dL 70-110 H 0695915700) CREATININE (test code = 0.66 mg/dL 0.60-1.25 1540738309) TOTAL BILI (test code = 0.8 mg/dL 0.1-1.8 3421019915) CALCIUM (test code = 8.3 mg/dL 8.6-10.6 L 0545716390) T PROTEIN (test code = 6.5 g/dL 6.3-8.2 2571124207) ALBUMIN (test code = 3.3 g/dL 3.5-5.0 L 9482310791) ALK PHOS (test code = 136 U/L 34-122 H 9298523211) ALTv (test code = 18 U/L 5-50 1742-6) AST(SGOT) (test code = 26 U/L 13-40 8959121390) eGFR (test code = mL/min/1.73m2 2492231964) DIANE (test code = DIANE) Association of [...] tests). Lab Interpretation Abnormal (test code = 67134-3) [facility] WITH [id number] 20:33:30 Test Item Value Reference Range Interpretation Comments WBC (test code = See_Comment [Automated 3190-2) message] The sy stem which generated this result transmitted reference range : 4.20 - 10.70 10*3/?L. The reference range was not used to interpret this result as normal/abnormal . RBC (test code = See_Comment [Automated 999-8) message] The sy stem which generated this [...] RDW-SD (test code = 45.4 fL 38.5-51.6 98374-0) RDW-CV (test code = 14.2 % 12.1-15.4 788-0) PLT (test code = See_Comment [Automated 777-3) message] The sy stem which generated this result transmitted reference range : 150 - 328 10*3/ ?L. The reference r batsheva was not used to interpret this result as normal/abnormal . MPV (test code = 9.8 fL 9.8-13.0 06439-0) NRBC/100 WBC (test See_Comment [Automat ed code = 0975597492) message] The system which generated this result transmitted reference range : 0.0 - 10.0 /100 WBCs. The refer ence range was not u sed to interpret th is result as normal/abnormal . NRBC x10^3 (test code <0.01 See_Comment [Auto mated = 6144364535) message] The s ystem which generated this result transmitted reference range : 10*3/?L. The reference range was not used to interpret this result as normal/abnormal . GRAN MAT (NEUT) % 62.3 % (test code = 770-8) IMM GRAN % (test code 0.80 % = 0002042322) LYMPH % (test code = 25.1 % 736-9) MONO % (test code = 6.7 % 5905-5) EOS % (test code = 4.7 % 713-8) BASO % (test code = 0.4 % 706-2) GRAN MAT x10^3(ANC) 4.76 10*3/uL 1.99-6.95 (test code = 2341866804) IMM GRAN x10^3 (test 0.06 10*3/uL 0.00-0.06 code = 2468012662) LYMPH x10^3 (test code 1.92 10*3/uL 1.09-3.23 = 731-0) MONO x10^3 (test code 0.51 10*3/uL 0.36-1.02 = 742-7) EOS x10^3 (test code = 0.36 10*3/uL 0.06-0.53 711-2) BASO x10^3 (test code 0.03 10*3/uL 0.01-0.09 = 704-7) Lab Interpretation Abnormal (test code = 65197-6) [facility] GLUCOSE (AUTOMATED)2021-11-09 20:27:39 Test Item Value Reference Range Interpretation Comments POCT GLU (test code = 2501654843) 190 mg/dL 70-110 H Lab Interpretation (test code = Abnormal 16567-2) [facility] [id number] 11:52:00 Test Item Value Reference Range Interpretation Comments GLUCOSE BEDSIDE TESTING (test code = 92 mg/dL 70-110 N GLUBED) GLUCOSE BEDSIDE [id number] 08:05:00 Test Item Value Reference Range Interpretation Comments GLUCOSE BEDSIDE TESTING (test code = 62 mg/dL 70-110 L GLUBED) GLUCOSE BEDSIDE [id number] 20:40:00 Test Item Value Reference Range Interpretation Comments GLUCOSE BEDSIDE TESTING (test code 105 mg/dL 70-110 N = GLUBED) GLUCOSE BEDSIDE [id number] 17:02:00 Test Item Value Reference Range Interpretation Comments GLUCOSE BEDSIDE TESTING (test code 128 mg/dL 70-110 H = GLUBED) GLUCOSE BEDSIDE [id number] 16:37:00 Test Item Value Reference Range Interpretation Comments GLUCOSE BEDSIDE TESTING (test code 105 mg/dL 70-110 N = GLUBED) GLUCOSE BEDSIDE [id number] 08:17:00 Test Item Value Reference Range Interpretation Comments GLUCOSE BEDSIDE TESTING (test code = 88 mg/dL 70-110 N GLUBED) GLUCOSE BEDSIDE [id number] 19:45:00 Test Item Value Reference Range Interpretation Comments GLUCOSE BEDSIDE TESTING (test code 115 mg/dL 70-110 H = GLUBED) GLUCOSE BEDSIDE [id number] 18:13:00 Test Item Value Reference Range Interpretation Comments GLUCOSE BEDSIDE TESTING (test code = 74 mg/dL 70-110 N GLUBED) GLUCOSE BEDSIDE [id number] 17:29:00 Test Item Value Reference Range Interpretation Comments GLUCOSE BEDSIDE TESTING (test code = 44 mg/dL 70-110 LL GLUBED) GLUCOSE BEDSIDE [id number] 12:26:00 Test Item Value Reference Range Interpretation Comments GLUCOSE BEDSIDE TESTING (test code = 96 mg/dL 70-110 N GLUBED) GLUCOSE BEDSIDE [id number] 08:21:00 Test Item Value Reference Range Interpretation Comments GLUCOSE BEDSIDE TESTING (test code = 77 mg/dL 70-110 N GLUBED) GLUCOSE BEDSIDE [id number] 20:12:00 Test Item Value Reference Range Interpretation Comments GLUCOSE BEDSIDE TESTING (test code = 91 mg/dL 70-110 N GLUBED) GLUCOSE BEDSIDE [id number] 16:42:00 Test Item Value Reference Range Interpretation Comments GLUCOSE BEDSIDE TESTING (test code 106 mg/dL 70-110 N = GLUBED) GLUCOSE BEDSIDE [id number] 11:49:00 Test Item Value Reference Range Interpretation Comments GLUCOSE BEDSIDE TESTING (test code = 89 mg/dL 70-110 N GLUBED) GLUCOSE BEDSIDE [id number] 08:22:00 Test Item Value Reference Range Interpretation Comments GLUCOSE BEDSIDE TESTING (test code = 68 mg/dL 70-110 L GLUBED) GLUCOSE BEDSIDE [id number] 20:05:00 Test Item Value Reference Range Interpretation Comments GLUCOSE BEDSIDE TESTING (test code 137 mg/dL 70-110 H = GLUBED) GLUCOSE BEDSIDE [id number] 16:42:00 Test Item Value Reference Range Interpretation Comments GLUCOSE BEDSIDE TESTING (test code = 98 mg/dL 70-110 N GLUBED) GLUCOSE BEDSIDE [id number] 11:13:00 Test Item Value Reference Range Interpretation Comments GLUCOSE BEDSIDE TESTING (test code 118 mg/dL 70-110 H = GLUBED) GLUCOSE BEDSIDE [id number] 07:37:00 Test Item Value Reference Range Interpretation Comments GLUCOSE BEDSIDE TESTING (test code 140 mg/dL 70-110 H = GLUBED) COMPREHENSIVE METABOLIC [id number] 06:34:00 Test Item Value Reference Range Interpretation [...] TOTAL (test code = ALKP) CBC W/AUTO [id number] 06:25:00 Test Item Value Reference Range Interpretation [...] DIFF/SCN CRITERIA = MDIFF) - CT ABDOMEN [id number]/[id number] 03:09:00 [facility] 1960 Sex: M Name: FAITH VANCE [facility] : 1960 Age/S: 60 / M [address] [place] Unit #: [id number] Loc: [place] [address] Phys: Fede Carrera DO Acct: [id number] Dis Date: Status: ADM IN PHONE #: [phone] Exam Date: 10/31/20201919 FAX #: Reason: NAUSEA, VOMITING, DIARRHEA EXAMS: CPT: [id number] CT ABDOMEN W/CONTRAST 84451 EXAM: - CT ABDOMEN W/CONTRAST LOCATION: H61 [...] Report (CONTINUED) [facility]: 1960 Age/S: 60 / M [address] [facility] [place] Unit #: [id number] Loc: [place] [address] Phys: Fede Green Acct: [id number] Dis Date: Status: ADM IN PHONE #: [phone] Exam Date: 10/31/2020 192 FAX #: Reason: NAUSEA, VOMITING, DIARRHEA EXAMS: CPT: [id number] CT ABDOMEN W/CONTRAST 98621 <Continued> small bowel wall thickening. The appendix [...] Rohan(R) CTDI: DLP: Trnscb Date/Time: 11/01/2020 (308) [email or web address] Orig Print D/T: S: 11/01/2020 (8) PAGE 2 Signed ReportGLUCOSE BEDSIDE [id number] 21:34:00 Test Item Value Reference Range Interpretation Comments GLUCOSE BEDSIDE TESTING (test code 161 mg/dL 70-110 H = GLUBED) GLUCOSE BEDSIDE [id number] 17:32:00 Test Item Value Reference Range Interpretation Comments GLUCOSE BEDSIDE TESTING (test code 136 mg/dL 70-110 H = GLUBED) - XR ABDOMEN 1 [id number] 12:44:00 [facility] 1960 Sex: M Name: FAITH VANCE [facility] : 1960 Age/S: 60 / M [address] [place] Unit #: [id number] Loc: [place] [address] Phys: Fede Carrera DO Acct: [id number] Dis Date: Status: ADM IN PHONE #: [phone] Exam Date: 10/31/2020 1227 FAX #: Reason: Abdominal pain in the lower qudarants EXAMS: CPT: [id number] XR ABDOMEN 1 V 55382 Fluoro Time: DAP (Gy m2): Air Kerma [...] small bowel loops. Overall nonspecific appearance. at 4984 Reported and signed by: Ananth Schmidt M.D. CC: Nika Martin MD; Fede Carrera DO PAGE 1 Signed Report Name: FAITH VANCE [facility] : 1960 Age/S: 60 / M [address] [facility] [place] Unit #: [id number] Loc: [place] [address] Phys: Fede Carrera Acct: [id number] Dis Date: Status: ADM IN PHONE #: [phone] Exam Date: 10/31/2020 1227 FAX #: Reason: Abdominal pain in the lower qudarants EXAMS: CPT: [id number] XR ABDOMEN 1 V 15034 Fluoro Time: DAP (Gy m2): Air Kerma (mGy): <Continued> Technologist: RT Rohan(Tim) Ravindra Date/Time: 10/31/2020 (5424) Lorena Talbot D/T: S: 10/31/2020 (1988) PAGE 2 Signed Report GLUCOSE BEDSIDE [id number] 11:58:00 Test Item Value Reference Range Interpretation Comments GLUCOSE BEDSIDE TESTING (test code 105 mg/dL 70-110 N = GLUBED) GLUCOSE BEDSIDE [id number] 08:01:00 Test Item Value Reference Range Interpretation Comments GLUCOSE BEDSIDE TESTING (test code 106 mg/dL 70-110 N = GLUBED) [id number] 22:46:00 Test Item Value Reference Range Interpretation [...] yby method. Completed by Nursing: NOGLUCOSE BEDSIDE [id number] 21:55:00 Test Item Value Reference Range Interpretation Comments GLUCOSE BEDSIDE TESTING (test code 119 mg/dL 70-110 H = GLUBED) [id number] 19:33:00 Test Item Value Reference Range Interpretation [...] method. Completed by Nursing: NOCoronavirus 2019 nCoV [id number] 18:46:00 Test Item Value Reference Range Interpretation Comments Coronavirus 2019 nCoV Negative Negative Per arnie west, Bedside (test code = negativ e results should RVTAT04THHCJ) be treated aspresumptive a nd, if inconsistent [...] with COVID-19. Spec Comments: NNT PRO-BRAIN NATRIURETIC [id number] 15:51:00 Test Item Value Reference Range Interpretation Comments NT PRO-BRAIN NATRIURETIC PEPTI 6079 PG/ML 0-100 H (test code = PROBNP) Completed by Nursing: [id number] 15:51:00 Test Item Value Reference Range Interpretation [...] yby method. Completed by Nursing: NOBASIC METABOLIC [id number] 15:51:00 Test Item Value Reference Range Interpretation [...] Completed by Nursing: NO- XR CHEST 1 [id number] 15:42:00 [facility] 1960 Sex: M Name: FAITH VANCE [facility] : 1960 Age/S: 60 / M [address] Unit #: [id number] Loc: [place] [address] Phys: Todd Jacobo MD Acct: [id number] Dis Date: Status: PRE ER PHONE #:[phone] Exam Date: 10/30/2020 1525 FAX #: Reason: chest pain EXAMS: CPT: [id number] XR CHEST 1 V 23568 Fluoro Time: DAP (Gy m2): Air Kerma [...] Jacobo MD PAGE 1 Signed Report Name: FAIHT VANCE [facility] : 1960 Age/S: 60 / M [address] [place] Unit #: [id number] Loc: [place] [address] Phys: Todd Jacobo MD Acct: [id number] Dis Date: Status: PRE ER PHONE #: [phone] Exam Date: 10/30/2020 1524 FAX #: Reason: chest pain EXAMS: CPT: [id number] XR CHEST 1 V 76566 Fluoro Time: DAP (Gy m2): Air Kerma (mGy): <Continued> Technologist: Kim Andrews RT(R)(CT) Trnscb Date/Time: 10/30/2020 (343) tMATTRHortensiaRB24 Orig Print D/T:S: 10/30/2020 (8589) PAGE 2 Signed ReportCBC W/O [id number] 15:31:00 Test Item Value Reference Range Interpretation [...] 9.70 fL 7.0-9.6 H MPV) BASIC METABOLIC [id number] 21:42:00 Test Item Value Reference Range Interpretation [...] 9.6 mg/dL 8.0-10.5 N CA) HEPATIC FUNCTION [id number] 21:42:00 Test Item Value Reference Range Interpretation [...] 114 IUnit/L 20-125 N code = ALKP) [id number] 21:42:00 Test Item Value Reference Range Interpretation Comments LIPASE (test code = LIP) 70 U/L 13-57 H [id number] 21:42:00 Test Item Value Reference Range Interpretation Comments TROPONIN-I 0.026 ng/mL 0.000-0.045 N Negative: <= 0. 045 Positive: (test code = >= 0.046 Correl ation with TROPI) serial results, other cardiac markers andclin ical findings is necessary to determine the clinicalsignifi cance of this result. Results using different metho dologies should not be c omparedto one another as mihn titative results may babak y by method. UA RFLX MICR CULT IF [id number] 21:37:00 Test Item Value Reference Range Interpretation [...] INDWELLING CATH (CEDENO)Cath Status: Under 72 hoursPROTHROMBIN [id number] 21:35:00 Test Item Value Reference Range Interpretation [...] (to prevent recurrent infar ct). THROMBOPLASTIN TIME [id number] 21:35:00 Test Item Value Reference Range Interpretation Comments THROMBOPLASTIN TIME 41.7 Seconds 25.0-39.5 H Therape utic Range: PARTIAL (test code = 50.4 - 88.3 Seconds PTT) Effective 09/04/2018 CBC W/AUTO [id number] 21:29:00 Test Item Value Reference Range Interpretation [...] = MDIFF) - CT ABD PELVIS W/O [id number] 20:49:00 [facility] 1960 Sex: M Name: FAITH VANCE [facility] : 1960 Age/S: 60 / M [address] [place] [address] Unit #: [id number] Loc: [place] [address] Phys: Gisel Eugene Acct: [id number] Dis Date: Status: REG ER PHONE #: [phone] Exam Date: 08/23/20202024 FAX #: [phone] Reason: DIFFUSE ABDOMINAL PAIN EXAMS: CPT CODE: [id number] CT ABD PELVIS W/O CONT 39066 Clinical indication: Diffuse abdominal pain. Contrast - [...] PAGE 1 Signed Report (CONTINUED)Name: FAITH VANCE [facility] : 1960 Age/S: 60 / M [address] [place] [address] Unit #: [id number] Loc: [place] [address] Phys: Gisel Eugene [employer] Acct: [id number] Dis Date: Status: REG ER PHONE #: [phone] Exam Date: 08/23/20202024 FAX #: [phone] Reason: DIFFUSE ABDOMINAL PAIN EXAMS: CPT CODE: [id number] CT ABD PELVIS W/O CONT 07822 <Continued> Peritoneum/Other: No extraluminal air. No extraluminal [...] Alf Hope DO; Carol Martin MD; Gisel PALOMO Eugene Technologist:RT Fanta(R)(CT) CTDI: DLP: Trnscb Date/Time: 08/23/2020 (2048) Aleida.VB9 Orig Print D/T: S: 08/23/2020 (2051) PAGE 2 Signed ReportBASIC METABOLIC [id number] 07:51:00 Test Item Value Reference Range Interpretation [...] >3 months. [Automated mess age] The system [employer] generated this result transmitted ref erence range: >=60. Th e reference range was not used to int erpret this result as normal/abnormal . CREATININE (test 1.20 mg/dL 0.7-1.3 N code = CREAT) BUN/CREATININE RATIO 22.1 10-20 H (test code = BUN/CREA) CALCIUM (test code = 8.6 mg/dL 8.5-10.1 N CA) [id number] 16:58:00 Test Item Value Reference Range Interpretation Comments GLUBED (test code = 159 MG/DL 70-110 H Performe d by certified GLUBED) automatic centrifugal station operator at [facility] [id number] 11:58:00 Test Item Value Reference Range Interpretation Comments GLUBED (test code = 149 MG/DL 70-110 H Performe d by certified GLUBED) automatic centrifugal station operator at [facility] BASIC METABOLIC [id number] 08:00:00 Test Item Value Reference Range Interpretation [...] 9.9 mg/dL 8.0-10.5 N CA) CBC W/AUTO [id number] 07:08:00 Test Item Value Reference Range Interpretation [...] DIFF REQUIRED (test code NO = MDIFF) [id number] 05:21:00 Test Item Value Reference Range Interpretation Comments GLUBED (test code = 150 MG/DL 70-110 H Performe d by certified GLUBED) automatic centrifugal station operator at [facility] [id number] 21:13:00 Test Item Value Reference Range Interpretation Comments GLUBED (test code = 129 MG/DL 70-110 H Performe d by certified GLUBED) automatic centrifugal station operator at [facility] [id number] 16:48:00 Test Item Value Reference Range Interpretation Comments GLUBED (test code = 116 MG/DL 70-110 H Performe d by certified GLUBED) automatic centrifugal station operator at [facility] [id number] 12:18:00 Test Item Value Reference Range Interpretation Comments GLUBED (test code = 136 MG/DL 70-110 H Performe d by certified GLUBED) automatic centrifugal station operator at [facility] [id number] 12:18:00 Test Item Value Reference Range Interpretation Comments GLUBED (test code = 151 MG/DL 70-110 H Performe d by certified GLUBED) automatic centrifugal station operator at [facility] CBC W/AUTO [id number] 07:32:00 Test Item Value Reference Range Interpretation [...] (test code NO = MDIFF) BASIC METABOLIC [id number] 07:29:00 Test Item Value Reference Range Interpretation [...] code = 9.0 mg/dL 8.0-10.5 N CA) [id number] 05:19:00 Test Item Value Reference Range Interpretation Comments GLUBED (test code = 135 MG/DL 70-110 H Performe d by certified GLUBED) automatic centrifugal station operator at [facility] [id number] 20:31:00 Test Item Value Reference Range Interpretation Comments GLUBED (test code = 189 MG/DL 70-110 H Performe d by certified GLUBED) automatic centrifugal station operator at [facility] [id number] 17:41:00 Test Item Value Reference Range Interpretation Comments GLUBED (test code = 140 MG/DL 70-110 H Performe d by certified GLUBED) automatic centrifugal station operator at [facility] - CTA CHEST FOR [id number] 13:48:00 [facility] 1960 Sex: M Name: FAITH VANCE [facility] : 1960 Age/S: 60 / M [address] [place] [address] Unit #: [id number] Loc: [place] [address] Phys: Gina Gonzalez [employer] Acct: [id number] Dis Date: Status: ADM IN PHONE #: [phone] Exam Date: 08/12/2020 0912 FAX #: [phone] Reason: CP, elevated D-dimer EXAMS: CPT CODE: [id number] [place] [address] PROCEDURE: CTA CHEST INDICATION: CP, elevated D-dimer; [...] 1 Signed Report (CONTINUED) Name: FAITH VANCE [facility] : 1960 Age/S: 60 / M [address] [place] [address] Blvd Unit #: [id number] Loc: [place] [address] Phys: Gina Gonzalez NP Acct: [id number] Dis Date: Status: ADM IN PHONE #: [phone] Exam Date: 08/12/2020911 FAX #: [phone] Reason: CP, elevated D-dimer EXAMS: CPT CODE: [id number] [place] [address] <Continued> contrast enhancement. No acute abnormality demonstrated. MUSCULOSKELETAL: Healed median sternotomy. No acute skeletal abnormality. IMPRESSION: 1. Negative for pulmonary embolic disease within limitations noted. 2.Atherosclerosis. 3. Coronary arterial calcifications with prior coronary arterial stents and CABG. 4. Interstitial edema. No consolidation. 5. Small bilateral pleural effusions. SL: [id number] at 1348 Reported and signed by: Christiano Piña M.D. CC: Johnie Montanez MD; Gina Gonzalez [employer]; Nika Martin MD Technolog ist:Kate Camacho, RT(R)(CT) CTDI: DLP: Trnscb Date/Time: 08/12/2020 (1348) Ashley Orig Print D/T: S: 08/12/2020 (9336) PAGE 2 Signed ReportGLUBED 2020-08-12 11:38:00 Test Item Value Reference Range Interpretation Comments GLUBED (test code = 146 MG/DL 70-110 H Performe d by certified GLUBED) automatic centrifugal station operator at [facility] CBC W/AUTO [id number] 09:17:00 Test Item Value Reference Range Interpretation [...] (test code NO = MDIFF) BASIC METABOLIC [id number] 08:28:00 Test Item Value Reference Range Interpretation [...] code = 8.3 mg/dL 8.0-10.5 N CA) [id number] 08:28:00 Test Item Value Reference Range Interpretation Comments PHOSPHOROUS (test code = PHOS) 3.6 MG/DL 2.5-4.9 N [id number] 08:28:00 Test Item Value Reference Range Interpretation Comments MAGNESIUM (test code = MAG) 1.94 mg/dL 1.80-2.40 N [id number] 07:16:00 Test Item Value Reference Range Interpretation Comments GLUBED (test code = 170 MG/DL 70-110 H Performe d by certified GLUBED) automatic centrifugal station operator at [facility] [id number] 07:16:00 Test Item Value Reference Range Interpretation Comments GLUBED (test code = 137 MG/DL 70-110 H Performe d by certified GLUBED) automatic centrifugal station operator at [facility] [id number] 17:01:00 Test Item Value Reference Range Interpretation Comments GLUBED (test code = 88 MG/DL 70-110 N Performe d by certified GLUBED) automatic centrifugal station operator at [facility] EFD-[id number] 16:56:00 Test Item Value Reference Range Interpretation Comments ACT-ISTAT (test code 186 SEC 74-137 H Perform ed by certified = ACTI) automatic centrifugal station operator at [facility] SMQ-[id number] 15:03:00 Test Item Value Reference Range Interpretation Comments ACT-ISTAT (test code 235 SEC 74-137 H Perform ed by certified = ACTI) automatic centrifugal station operator at [facility] [id number] 11:33:00 Test Item Value Reference Range Interpretation Comments GLUBED (test code = 97 MG/DL 70-110 N Performe d by certified GLUBED) automatic centrifugal station operator at [facility] [id number] 06:54:00 Test Item Value Reference Range Interpretation Comments GLUBED (test code = 136 MG/DL 70-110 H Performe d by certified GLUBED) automatic centrifugal station operator at [facility] BASIC METABOLIC [id number] 06:00:00 Test Item Value Reference Range Interpretation [...] COMMENTS: To be done morning of Heart XqztFVLGTARVJOZ3443-90-44 06:00:00 Test Item Value Reference Range Interpretation Comments PHOSPHOROUS (test code = PHOS) 4.1 MG/DL 2.5-4.9 N COMMENTS: To be done morning of Heart PsbmTBNJRNSKM8782-26-15 06:00:00 Test Item Value Reference Range Interpretation Comments MAGNESIUM (test code = MAG) 1.74 mg/dL 1.80-2.40 L COMMENTS: To be done morning of Heart CathTHROMBOPLASTIN TIME [id number] 05:55:00 Test Item Value Reference Range Interpretation Comments THROMBOPLASTIN TIME 37.9 Seconds 25.0-39.5 N Therape utic Range: PARTIAL (test code = 50.4 - 88.3 Seconds PTT) Effective 09/04/2018 CBC W/AUTO [id number] 05:44:00 Test Item Value Reference Range Interpretation [...] COMMENTS: To be done morning of Heart GjflKSJVKB9888-83-00 05:44:00 Test Item Value Reference Range Interpretation Comments GLUBED (test code = 92 MG/DL 70-110 N Performe d by certified GLUBED) automatic centrifugal station operator at [facility] HGBA1C%2020-08-10 17:22:00 Test Item Value Reference Range Interpretation Comments HGBA1C% (test code = HGBA1C%) 6.6 %A1C 4.8-6.0 H [id number] 17:17:00 Test Item Value Reference Range Interpretation Comments GLUBED (test code = 118 MG/DL 70-110 H Performe d by certified GLUBED) 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 COVID 19 Asymptomatic IH [id number] 11:35:00 Test Item Value Reference Range Interpretation [...] y tests. COMMENTS: If not done this xigvilrbePLYQZRIK-[id number] 11:31:00 Test Item Value Reference Range Interpretation Comments TROPONIN-I 0.033 ng/mL 0.000-0.045 N Negative: <= 0. 045 Positive: (test code = >= 0.046 Correl ation with TROPI) serial results, other cardiac markers andclin ical findings is necessary to determine the clinicalsignifi cance of this result. Results using different metho dologies should not be c omparedto one another as minh titative results may bbaak y by method. [id number] 11:28:00 Test Item Value Reference Range Interpretation Comments D-DIMER (test 1089 ng/mlFEU See_Comment HH Critical resu lt called to code = ALYX WELLS, RNby DDIMER) G.LAB.JJ1 at 04 1808/10/20Nurse r ead back result and tech confirmed it's correct? Y ESTHROMBOSIS AND/OR PULMONAR Y EMBOLISM AND THE CLINICA L CUT- OFF VALUE FOR EXCLU ROEMRO (500 ng/mL FEU) OF T HESE CONDITIONSIS [...] APPROPRIATECLIN ICAL EUALUATIONS. [A utomated message] The [employer] stem which generated this result transmitted ref erence range: <=500. T he reference range was not u sed to interpret this result as normal/abnormal . 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 at [facility] B-TYPE NATRIURETIC [id number] 08:19:00 Test Item Value Reference Range Interpretation Comments B-TYPE NATRIURETIC PEPTIDE (test 508.0 PG/ML 0-100 H code = BNP) BASIC METABOLIC [id number] 08:11:00 Test Item Value Reference Range Interpretation [...] 9.1 mg/dL 8.0-10.5 N CA) HEPATIC FUNCTION [id number] 08:11:00 Test Item Value Reference Range Interpretation [...] 174 IUnit/L 20-125 H code = ALKP) [id number] 08:11:00 Test Item Value Reference Range Interpretation Comments MAGNESIUM (test code = MAG) 1.80 mg/dL 1.80-2.40 N [id number] 08:11:00 Test Item Value Reference Range Interpretation [...] may babak y by method. BASIC METABOLIC [id number] 08:09:00 Test Item Value Reference Range Interpretation [...] code = CA) mg/dL 8.0-10.5 HEPATIC FUNCTION [id number] 08:09:00 Test Item Value Reference Range Interpretation Comments TOTAL PROTEIN (test code = PROT) g/dL 6.4-8.2 ALBUMIN (test code = ALB) g/dL 3.4-5.0 BILIRUBIN TOTAL (test code = BILT) mg/dL 0.0-1.0 BILIRUBIN DIRECT (test code = BILD) MG/DL 0.0-0.30 SGOT/AST (test code = AST) IUnit/L 15-37 SGPT/ALT (test code = ALT) IUnit/L 30-65 ALKALINE PHOSPHATASE TOTAL (test IUnit/L 20-125 code = ALKP) [id number] 08:09:00 Test Item Value Reference Range Interpretation Comments MAGNESIUM (test code = MAG) mg/dL 1.80-2.40 [id number] 08:09:00 Test Item Value Reference Range Interpretation [...] results may babak y by method. PROTHROMBIN [id number] 08:06:00 Test Item Value Reference Range Interpretation [...] (to prevent recurrent infar ct). THROMBOPLASTIN TIME [id number] 08:06:00 Test Item Value Reference Range Interpretation Comments THROMBOPLASTIN TIME 44.5 Seconds 25.0-39.5 H Therape utic Range: PARTIAL (test code = 50.4 - 88.3 Seconds PTT) Effective 09/04/2018 CBC W/AUTO [id number] 07:58:00 Test Item Value Reference Range Interpretation [...] NO = MDIFF) - XR CHEST 1 [id number] 07:57:00 [facility] : 1960 Sex: M FAX: Todd Jacobo MD [phone] [place]: St: REG FAX: Martínez Dash YAYA [phone] Name: FAITH VANCE [facility] JonnHikelly : 1960 Age/S: 60/M [address] [place] [address] Unit #: [id number] Loc: [place] [address] Phys: Martínez Dash NP Acct: [id number] Dis Date: Status: REG ER PHONE #: [phone] Exam Date: 08/10/2020752 FAX #: [phone] Reason: Chest Pain EXAMS: CPT CODE: [id number] XR CHEST 1 V 55681 Chest single view 08/10/2020 HISTORY: Chest pain. Comparison is made to 05/21/2018 FINDINGS: Pacemaker and midline sternotomy wires are stable. The lungs are hypoinflated. No consolidation or pleural effusion is present. No vascular congestion or interstitial edema is present. Heart size is mildly enlarged. Aorta is unchanged. IMPRESSION: Hypoinflated lungs. No acute cardiopulmonary process. SL: [id number] at 0757 Reported and signed by: Khai Kruse M.D. CC: Todd Jacobo MD; Martínez Dash NP Technologist: RT Ann(Tim) Trnscrd Date/Time/By: 08/10/2020 (0757) : By: [email or web address] Orig Print D/T: S: 08/10/2020 (0800) PAGE 1 Signed Report COMPREHENSIVE METABOLIC [id number] 18:02:00 Test Item Value Reference Range Interpretation [...] 50-136 H TOTAL (test code = ALKP) [id number] 18:02:00 Test Item Value Reference Range Interpretation Comments AMYLASE (test code = SERGIO) 82 Unit/L 25-115 N [id number] 18:02:00 Test Item Value Reference Range Interpretation Comments LIPASE (test code = LIP) 185 Unit/L 114-286 N COMPREHENSIVE METABOLIC [id number] 17:56:00 Test Item Value Reference Range Interpretation [...] TOTAL Unit/L 50-136 (test code = ALKP) [id number] 17:56:00 Test Item Value Reference Range Interpretation Comments AMYLASE (test code = SERGIO) Unit/L 25-115 [id number] 17:56:00 Test Item Value Reference Range Interpretation Comments LIPASE (test code = LIP) 185 Unit/L 114-286 N CBC W/AUTO [id number] 17:46:00 Test Item Value Reference Range Interpretation [...] CRITERIA MDIFF) - CT ABD PELVIS W/O [id number] 17:46:00 Name: FAITH VANCE [facility] : 1960 Age/S: 58 / M [address] [facility] Unit #: [id number] Loc: [place] [address] Phys: Nila Chester MD Acct: [id number] Dis Date: Status: REG ER PHONE #: [phone] Exam Date: 01/03/2019 7539 FAX #: Reason: llq EXAMS: CPT: [id number] CT ABD PELVIS W/O CONT 87321 Location of dictation: B2 CT abdomen and [...] No renal stones or hydronephrosis. Bladder is intact.Stable simple right renal cyst measuring 2.7 cm. [...] 1 Signed Report (CONTINUED) [facility] 1960 Age/S: 58 / M [address] [address] [place] Unit #: [id number] Loc: [place] [address] Phys: Nila Chester MD Acct: [id number] Dis Date: Status: REG ER PHONE #: [phone] Exam Date: 01/03/2019 1734 FAX #: Reason: llq EXAMS: CPT: [id number] CT ABD PELVIS W/O CONT 84120 <Continued> at 1746 Reported and signed by: Renuka Willett M.D. CC: Nila Chester MD Technologist:Tavon Jurado RT(R)(CT)(MRI) CTDI: DLP: Trnscb Date/Time: 01/03/2019 (1746) t.[email or web address] Orig Print D/T: S: 01/03/2019 (7475) PAGE 2 Signed ReportBedside [id number] 11:47:00 Test Item Value Reference Range Interpretation Comments Bedside Glucose (test code = 12546-5) 155 70-120 H Meter ID: [id number] Centerodium [id number] 08:31:00 Test Item Value Reference Range Interpretation Comments Sodium Level (test code = 2951-2) 139 136-145 [facility]Pot[facility] Dkrbc8792-26-37 08:31:00 Test Item Value Reference Range Interpretation Comments Potassium Level (test code = 2823-3) 4.0 3.5-5.1 [facility] CenterChloride Basqz0331-59-58 08:31:00 Test Item Value Reference Range Interpretation Comments Chloride Level (test code = 2075-0) 106 98-107 [facility] CenterCarbon Dioxide [id number] 08:31:00 Test Item Value Reference Range Interpretation Comments Carbon Dioxide Level (test code = 25 2027-9) [facility] CenterAnion [id number] 08:31:00 Test Item Value Reference Range Interpretation Comments Anion Gap (test code = 60678-5) 12.0 8-16 [facility] CenterBlood Urea Zbmzojco1917-27-11 08:31:00 Test Item Value Reference Range Interpretation Comments Blood Urea Nitrogen (test code = 12-14 3094-0) [facility] CenterCreatinine2018-06-08 08:31:00 Test Item Value Reference Range Interpretation Comments Creatinine (test code = 2160-0) 0.72 0.72-1.25 [facility] CenterBUN/Creatinine Qtwse2296-68-53 08:31:00 Test Item Value Reference Range Interpretation Comments BUN/Creatinine Ratio (test code = 11-13 3097-3) [facility] CenterEstimat Glomerular Filtration Umne3052-48-89 08:31:00 Test Item Value Reference Range Interpretation Comments Estimat Glomerular Filtration Rate 60- >60 (test code = 67289-9) Ranges were taken from the National Kidney Disease Education Program and the National Kidney Foundation literature.Reference ranges:60 or greater: Xemmpp22- 59 (for 3 consecutive months): Chronic kidneydisease 15 or less: Kidney failure [facility] CenterGlucose Hgoet1033-70-53 08:31:00 Test Item Value Reference Range Interpretation Comments Glucose Level (test code = VBK2388) 195 74-118 H [facility] CenterCalcium Swwus2021-02-43 08:31:00 Test Item Value Reference Range Interpretation Comments Calcium Level (test code = 87390-6) 9.0 8.4-10.2 [facility] CenterWhite Blood Fugao2218-25-29 08:12:00 Test Item Value Reference Range Interpretation Comments White Blood Count (test code = 6690-2) 6.06 4.8-10.8 [facility] CenterRed Blood Gegft0467-82-78 08:12:00 Test Item Value Reference Range Interpretation Comments Red Blood Count (test code = 789-8) 4.22 4.3-5.7 L [facility] CenterHemoglobin2018-06-08 08:12:00 Test Item Value Reference Range Interpretation Comments Hemoglobin (test code = 93293-9) 12.5 14.0-18.0 L [facility] CenterHematocrit2018-06-08 08:12:00 Test Item Value Reference Range Interpretation Comments Hematocrit (test code = 4544-3) 36.2 38.2-49.6 L [facility] CenterMean Corpuscular Jcnozb8225-74-22 08:12:00 Test Item Value Reference Range Interpretation Comments Mean Corpuscular Volume (test code = 85.8 81-99 787-2) [facility] CenterMean Corpuscular Qflsssamsr1502-58-27 08:12:00 Test Item Value Reference Range Interpretation Comments Mean Corpuscular Hemoglobin (test code 29.6 28-32 = 785-6) [facility] CenterMean Corpuscular Hemoglobin Cmlkbxu7823-13-94 08:12:00 Test Item Value Reference Range Interpretation Comments Mean Corpuscular Hemoglobin Concent 34.5 31-35 (test code = 786-4) [facility] CenterRed Cell Distribution Raeuh4790-74-38 08:12:00 Test Item Value Reference Range Interpretation Comments Red Cell Distribution Width (test code 14.2 11.7-14.4 = 15756-1) [facility] CenterPlatelet Ohfvw8530-79-34 08:12:00 Test Item Value Reference Range Interpretation Comments Platelet Count (test code = 777-3) 263 140-360 [facility] CenterNeutrophils (%) (Auto)2017-10-27 08:12:00 Test Item Value Reference Range Interpretation Comments Neutrophils (%) (Auto) (test code = 51.2 38.7-80.0 31313-4) [facility] CenterLymphocytes (%) (Auto)2017-10-27 08:12:00 Test Item Value Reference Range Interpretation Comments Lymphocytes (%) (Auto) (test code = 33.7 18.0-39.1 736-9) [facility] CenterMonocytes (%) (Auto)2017-10-27 08:12:00 Test Item Value Reference Range Interpretation Comments Monocytes (%) (Auto) (test code = 9.1 4.4-11.3 5905-5) [facility] CenterEosinophils (%) (Auto)2017-10-27 08:12:00 Test Item Value Reference Range Interpretation Comments Eosinophils (%) (Auto) (test code = 4.8 0.0-6.0 713-8) [facility] CenterBasophils (%) (Auto)2017-10-27 08:12:00 Test Item Value Reference Range Interpretation Comments Basophils (%) (Auto) (test code = 0.7 0.0-1.0 706-2) [facility] CenterIM GRANULOCYTES %2017-10-27 08:12:00 Test Item Value Reference Range Interpretation Comments IM GRANULOCYTES % (test code = IM 0.5 0.0-1.0 GRANULOCYTES %) [facility] CenterNeutrophils # (Auto)2017-10-27 08:12:00 Test Item Value Reference Range Interpretation Comments Neutrophils # (Auto) (test code = 3.1 2.1-6.9 751-8) [facility] CenterLymphocytes # (Auto)2017-10-27 08:12:00 Test Item Value Reference Range Interpretation Comments Lymphocytes # (Auto) (test code = 2.0 1.0-3.2 39855-5) [facility] CenterMonocytes # (Auto)2017-10-27 08:12:00 Test Item Value Reference Range Interpretation Comments Monocytes # (Auto) (test code = 742-7) 0.6 0.2-0.8 [facility] CenterEosinophils # (Auto)2017-10-27 08:12:00 Test Item Value Reference Range Interpretation Comments Eosinophils # (Auto) (test code = 0.3 0.0-0.4 711-2) [facility] CenterBasophils # (Auto)2017-10-27 08:12:00 Test Item Value Reference Range Interpretation Comments Basophils # (Auto) (test code = 704-7) 0.0 0.0-0.1 [facility] CenterAbsolute Immature Granulocyte (yvwb1672-25-26 08:12:00 Test Item Value Reference Range Interpretation Comments Absolute Immature Granulocyte (auto 0.03 0-0.1 (test code = Absolute Immature Granulocyte (auto) [facility] CenterCreatine Kinase [id number] 15:14:00 Test Item Value Reference Range Interpretation Comments Creatine Kinase MB (test code = 3.90 0-5.0 71068-0) [facility] CenterTroponin [id number] 15:14:00 Test Item Value Reference Range Interpretation Comments Troponin I (test code = FGF6572) 0.054 0-0.300 [facility] CenterCreatine Vsjqaa3158-08-46 15:07:00 Test Item Value Reference Range Interpretation Comments Creatine Kinase (test code = 2157-6) 297 30-200 H [facility] CenterHemoglobin A1c Egzivuv0470-37-61 08:04:00 Test Item Value Reference Range Interpretation Comments Hemoglobin A1c Percent (test code = 12.6 4.0-7.0 H Hemoglobin A1c Percent) [facility] CenterTriglycerides Reasa7717-87-82 06:57:00 Test Item Value Reference Range Interpretation Comments Triglycerides Level (test code = 200 0-149 H 2571-8) [facility] CenterCholesterol Nqqjt4785-76-27 06:57:00 Test Item Value Reference Range Interpretation Comments Cholesterol Level (test code = 2093-3) 239 0-199 H Less than 200 mg/dL Low Aund294 - 239 mg/dL Borderline Cbuz054 mg/dl and greater High RiskSaint Mark's Medical CenterLDL Eibwozvfjig2477-10-17 06:57:00 Test Item Value Reference Range Interpretation Comments LDL Cholesterol (test code = 2089-1) 164 60-130 H [facility] CenterHDL Fkqquegnbzj2477-38-87 06:57:00 Test Item Value Reference Range Interpretation Comments HDL Cholesterol (test code = 2085-9) 35 40-60 L [facility] CenterCholesterol/HDL Jzibp1869-63-43 06:57:00 Test Item Value Reference Range Interpretation Comments Cholesterol/HDL Ratio (test code = 6.8 3.9-4.7 H 9830-1) [facility] CenterUrine Opiates Veztcr0855-56-96 16:18:00 Test Item Value Reference Range Interpretation Comments Urine Opiates Screen (test code = NEGATIVE NEGATIVE 32174-0) [facility] CenterUrine Barbiturates Ajsamk1655-61-68 16:18:00 Test Item Value Reference Range Interpretation Comments Urine Barbiturates Screen (test code NEGATIVE NEGATIVE = 225477062) [facility] CenterUrine Phencyclidine Osroei8191-36-49 16:18:00 Test Item Value Reference Range Interpretation Comments Urine Phencyclidine Screen (test NEGATIVE NEGATIVE code = 92910-1) [facility] CenterUrine Amphetamines Ptanjb2966-51-64 16:18:00 Test Item Value Reference Range Interpretation Comments Urine Amphetamines Screen (test code NEGATIVE NEGATIVE = 53676-4) [facility] CenterUrine Methamphetamines Idhrgt0324-68-36 16:18:00 Test Item Value Reference Range Interpretation Comments Urine Methamphetamines Screen (test NEGATIVE NEGATIVE code = Urine Methamphetamines Screen) [facility] CenterUrine Benzodiazepines Gboryb1715-25-80 16:18:00 Test Item Value Reference Range Interpretation Comments Urine Benzodiazepines Screen (test NEGATIVE NEGATIVE code = 73288-3) [facility] CenterUrine Cocaine Umltkg4414-10-20 16:18:00 Test Item Value Reference Range Interpretation Comments Urine Cocaine Screen (test code = NEGATIVE NEGATIVE 3398-5) [facility] CenterUrine Cannabinoids Lbhgkt8502-13-46 16:18:00 Test Item Value Reference Range Interpretation Comments Urine Cannabinoids Screen (test code NEGATIVE NEGATIVE = 54399-0) THESE RESULTS ARE FOR MEDICAL TREATMENT ONLYTHIS REPORT CONTAINS UNCONFIRMED SCREENING RESULTS*POSITIVE RESULTS WILL BE CONFIRMED BY REFERENCE LAB UPON REQUEST CUT-OFFDRUG CLASS CONCENTRATION ng/mLAmphetamines 1000Methamphetamines 1000Cocaine 300Opiate 300Phencyclidine 25Cannabinoid 50Barbiturates 300Benzodiazepine 300Methadone 300[facility] CenterUrine Methadone Jllvmg2376-96-02 16:18:00 Test Item Value Reference Range Interpretation Comments Urine Methadone Screen (test code = NEGATIVE NEGATIVE 53650-3) THESE RESULTS ARE FOR MEDICAL TREATMENT ONLYTHIS REPORT CONTAINS UNCONFIRMED SCREENING RESULTS*POSITIVE RESULTS WILL BE CONFIRMED BY REFERENCE LAB UPON REQUEST CUT-OFFDRUG CLASS CONCENTRATION ng/mLAmphetamines 1000Methamphetamines 1000Cocaine Metabolite 300Opiate 300Phencyclidine 97Kwvhvnwhxgl99Dbpnimoemrcj 300Benzodiazepine 300Methadone 300[facility] CenterProthrombin Wksr5904-97-55 14:13:00 Test Item Value Reference Range Interpretation Comments Prothrombin Time (test code = 5902-2) 13.6 11.9-14.5 [facility] CenterProthromb Time International Jdmwk5362-10-46 14:13:00 Test Item Value Reference Range Interpretation Comments Prothromb Time International Ratio 1.13 (test code = 6301-6) Oral Anticoagulant Therapy INR Values:1. Low Intensity Therapy 1.5 - 2.02. Moderate Intensity Therapy 2.0 - 3.03. High Intensity Therapy(1) 2.5 - 3.54. High Intensity Therapy(2) 3.0 - 4.05. Panic ValueINR > 5.0[facility] CenterActivated Partial Thromboplast Yudq8097-48-07 14:13:00 Test Item Value Reference Range Interpretation Comments Activated Partial Thromboplast Time 27.6 23.8-35.5 (test code = 26788-3) [facility] CenterAmylase Ikkcc4806-57-31 14:10:00 Test Item Value Reference Range Interpretation Comments Amylase Level (test code = 1798-8) 126 25-125 H [facility] CenterLipase2018-06-04 14:10:00 Test Item Value Reference Range Interpretation Comments Lipase (test code = 3040-3) 98 8-78 H [facility] CenterTotal Wrktyqamv9087-00-77 14:10:00 Test Item Value Reference Range Interpretation Comments Total Bilirubin (test code = 1975-2) 0.6 0.2-1.2 [facility] CenterAspartate Amino Transf (AST/SGOT)2017-10-23 14:10:00 Test Item Value Reference Range Interpretation Comments Aspartate Amino Transf (AST/SGOT) (test 36 5-34 H code = Aspartate Amino Transf (AST/SGOT)) [facility] CenterAlanine Aminotransferase (ALT/SGPT)2017-10-23 14:10:00 Test Item Value Reference Range Interpretation Comments Alanine Aminotransferase (ALT/SGPT) 34 0-55 (test code = 1742-6) [facility] CenterTotal Rhfcfhc6434-47-95 14:10:00 Test Item Value Reference Range Interpretation Comments Total Protein (test code = 2885-2) 7.3 6.5-8.1 [facility] CenterAlbumin2018-06-04 14:10:00 Test Item Value Reference Range Interpretation Comments Albumin (test code = 1751-7) 4.0 3.5-5.0 [facility] CenterGlobulin2018-06-04 14:10:00 Test Item Value Reference Range Interpretation Comments Globulin (test code = 05045-3) 3.3 2.3-3.5 [facility] CenterAlbumin/Globulin Siqtl1230-92-47 14:10:00 Test Item Value Reference Range Interpretation Comments Albumin/Globulin Ratio (test code = 1.2 0.8-2.0 1759-0) [facility] CenterAlkaline Zpupkcdekcu5589-78-22 14:10:00 Test Item Value Reference Range Interpretation Comments Alkaline Phosphatase (test code = 109 40-150 6768-6) [facility] Hpyvkvm7729-36-33 14:10:00 Test Item Value Reference Range Interpretation Comments B-Type Natriuretic Peptide (test code = 92.8 0-100 32936-7) [facility] (PE/DVT)2017-10-23 14:02:00 Test Item Value Reference Range Interpretation Comments D-Dimer Quantitative (PE/DVT) (test 0.49 0.00-0.45 H code = 76645-1) [facility]Direct Lpfylwjbf9148-27-16 13:47:00 Test Item Value Reference Range Interpretation Comments Direct Bilirubin (test code = 62623-2) 0.2 0.0-5.0 [facility] Moqlv2527-73-41 06:52:00 Test Item Value Reference Range Interpretation Comments Magnesium Level (test code = 23345-9) 1.5 1.3-2.1 [facility] [id number] 05:09:00 Test Item Value Reference Range Interpretation Comments Urine WBC (test code = 5821-4) NONE 0-5 [facility] [id number] 05:09:00 Test Item Value Reference Range Interpretation Comments Urine RBC (test code = 73777-9) NONE 0-5 [facility] Xpaveddx2405-18-30 05:09:00 Test Item Value Reference Range Interpretation Comments Urine Bacteria (test code = 61062-4) NONE NONE [facility] Epithelial [id number] 05:09:00 Test Item Value Reference Range Interpretation Comments Urine Epithelial Cells (test code = NONE NONE 06700-8) [facility] [id number] 04:46:00 Test Item Value Reference Range Interpretation Comments Urine Color (test code = 5778-6) YELLOW YELLOW [facility] Abnpjxe2387-38-83 04:46:00 Test Item Value Reference Range Interpretation Comments Urine Clarity (test code = 98501-9) CLEAR CLEAR [facility] Specific Qlugarx8098-84-58 04:46:00 Test Item Value Reference Range Interpretation Comments Urine Specific Fountain (test code = 1.010 1.010-1.025 5811-5) [facility] [id number] 04:46:00 Test Item Value Reference Range Interpretation Comments Urine pH (test code = 48226-4) 8 5-7 H [facility] Leukocyte Lyqxromy3115-06-92 04:46:00 Test Item Value Reference Range Interpretation Comments Urine Leukocyte Esterase (test code NEGATIVE NEGATIVE = 5799-2) [facility] Wpphrar4746-75-77 04:46:00 Test Item Value Reference Range Interpretation Comments Urine Nitrite (test code = 73909-2) NEGATIVE NEGATIVE [facility] Ofypjjw6542-44-20 04:46:00 Test Item Value Reference Range Interpretation Comments Urine Protein (test code = 5804-0) NEGATIVE NEGATIVE [facility] Glucose (UA)2017-03-05 04:46:00 Test Item Value Reference Range Interpretation Comments Urine Glucose (UA) (test code = NEGATIVE NEGATIVE 2349-9) [facility] Ttaxses3953-28-36 04:46:00 Test Item Value Reference Range Interpretation Comments Urine Ketones (test code = 38845-4) NEGATIVE NEGATIVE [facility] Kgspipjxuuag7095-25-12 04:46:00 Test Item Value Reference Range Interpretation Comments Urine Urobilinogen (test code = 0.2 0.2-1 54309-8) [facility] Ekwkwmius7576-29-34 04:46:00 Test Item Value Reference Range Interpretation Comments Urine Bilirubin (test code = 1978-6) NEGATIVE NEGATIVE [facility] Bwqmz2031-66-23 04:46:00 Test Item Value Reference Range Interpretation Comments Urine Blood (test code = 75313-8) 2+ NEGATIVE H [facility] CenterCT[facility] [place] [address] PatientName: FAITH VANCE MR #: [id number] : 1960 Age/Sex: 57/M Req #: [id number] Adm Physician: ALEXIS COX MD Ordered by: ALEXIS COX MD Report #: [id number] Location: [facility] Room/Bed: [place] [address] Procedure: CT/CTA BRAIN Exam Date: 10/24/17 Exam Time: [...] Hypoplastic bilaterally. Vertebral arteries: Codominant. Incidental findings: Mildmucosal thickening in the right maxillary sinus with [...] COPY TO: ALEXIS COX MDCT BRAIN WO [place] [address] PatientName: FAITH VANCE MR #: [id number] : 1960 Age/Sex: 57/M Req #: [id number] Adm Physician: Ordered by: KHAI WAHL MD Report #: [id number] Location: Room/Bed: __ Procedure: [id number] CT/CT BRAIN WO Exam Date: 10/23/17 Exam [...] SignedBy: ANA MARIA ARTEAGA MD on 10/23/17 1642 Transcribed By: ANDREE on 10/23/17 1643 [facility] [place] [address] PatientName: FAITH VANCE MR #: [id number] : 1960 Age/Sex: 57/M Req #: [id number] Adm Physician: Ordered by: KHAI WAHL MD Report #: [id number] Location: Room/Bed: __ Procedure: [id number] CT/CTA CHEST Exam Date: 10/23/17 Exam Time: [...] reviewed and is below limits set by [facility]). FINDINGS: Lines and Tubes: Pacemaker [...] 10/23/17 1621 COPY TO: KHAI WAHL V [facility] S[facility] (PORTABLE) [place] [address] PatientName: FAITH VANCE MR #: [id number] : 1960 Age/Sex: 57/M Req #: [id number] Adm Physician: Ordered by: KHAI WAHL MD Report #: [id number] Location: ER Room/Bed: __ Procedure: [id number] DX/CHEST SINGLE (PORTABLE) Exam Date: 10/23/17 Exam [...] M.D. on 10/23/2017 at 14:43 Electronicallyapproved by: lEie Barfield M.D. on 10/23/2017 at 14:43 Dictated By: ELIE BARFIELD MD 1443 Transcribed By: ANIBAL on 10/23/17 1443 COPY TO: KHAI WAHL V MDCT BRAIN WO [place] [address] PatientName: FAITH VANCE MR #: [id number] : 1960 Age/Sex: 56/M Req #: [id number] Adm Physician: Ordered by: JACQUELYN MONTES DE OCA MD Report #: [id number] Location: ER Room/Bed: Procedure: [id number] CT/CT BRAIN WO Exam Date: Exam Time: [...] 2:02 AM Dictated By: BRETT JEAN MD 0202 Transcribed By: ANDREE on 04/04/17201 COPY TO: JACQUELYN MONTES DE OCA MDCT CERVICAL SPINE WO [place] [address] PatientName: FAITH VANCE MR #: [id number] : 1960 Age/Sex: 56/M Req #: [id number] Adm Physician: Ordered by: JACQUELYN MONTES DE OCA MD Report #: [id number] Location: ER Room/Bed: Procedure: [id number] CT/CT CERVICAL SPINE WO Exam Date: Exam [...] 6 COPY TO: [facility]AC[facility]ONTES [facility] [place] [address] PatientName: FAITH VANCE MR #: [id number] : 1960 Age/Sex: 56/M Req #: [id number] Adm Physician: Ordered by: JACQUELYN MONTES DE OCA MD Report #: [id number] Location: ER Room/Bed: Procedure: [id number] DX/CHEST SINGLE (PORTABLE) Exam Date: 04/04/17 Exam [...] OCA MDHIP RIGHT 2-3 VW (+/- PELVIS) [place] [address] PatientName: FAITH VANCE MR #: [id number] : 1960 Age/Sex: 56/M Req #: [id number] Adm Physician: Ordered by: JACQUELYN MONTES DE OCA MD Report #: [id number] Location: ER Room/Bed: Procedure: [id number] DX/HIP RIGHT 2-3 VW (+/- PELVIS) Exam [...] DE OCA MDSP LUMBAR, COMPLETE MIN 4VW [place] [address] PatientName: FAITH VANCE MR #: [id number] : 1960 Age/Sex: 56/M Req #: [id number] Adm Physician: Ordered by: JACQUELYN MONTES DE OCA MD Report #: [id number] Location: ER Room/Bed: Procedure: [id number] DX/SP LUMBAR, COMPLETE MIN 4VW Exam Date: 04/04/17 Exam Time: 0108 REPORT STATUS: Signed SP LUMBAR, COMPLETE MIN 4VW Comparison: CT 08/10/2016 Clinical history: Status post fall with lowerback pain Findings: Postoperative changes from posterior fusion from left L4 vertebral body to L5-O2uzwqpw and posterior decompression. No evidence of hardware [...] COPY TO: JACQUELYN MONTES DE OCA MD ABDOMEN [place] [address] PatientName: FAITH VANCE MR #: [id number] : 1960 Age/Sex: 56/M Req #: [id number] Adm Physician: NICHELLE PALACIOS MD Ordered by: SCOTT AMIN MD Report #: [id number] Location: [facility] Room/Bed: [place] [address] Procedure: [id number] US/US ABDOMEN COMPLETE Exam Date: 03/08/17 Exam [...] on 03/08/17 1040 COPY TO: SCOTT AMIN [facility] ([place] [address] PatientName: FAITH VANCE MR #: [id number] : 1960 Age/Sex: 56/M Req #: [id number] Adm Physician: Ordered by: JACQUELYN MONTES DE OCA MD Report #: [id number] Location: Room/Bed: Procedure: [id number] DX/CHEST SINGLE (PORTABLE) Exam Date: 03/05/17 Exam [...]
[2022-02-02 05:54] LABS: Absolute Lymphocytes (CBC) 1.5 K/uL (0.7-4.9); Hematocrit 36.2 % (39.6-49.0); Lymphocytes % 19.4 % (15.3-44.8); MCV 90.3 fL (80-100); MPV 7.5 fL (7.6-11.3)
[2022-02-02] MEDS ORDERED: HYDROMORPHONE HCL 1 MG/ML INJ ONE (06:22)
[2022-02-02] MEDS ORDERED: NA CHLORIDE 0.9% 50 ML ONE (06:23)
--- NOTE | 2022-02-02 07:33 | ER ---
Nurse's Notes [facility] Name: Ernie Rooney Age: 61 yrs Sex: Male : 1960 Arrival Date: 02/02/2022 Time: 05:02 Bed 5 Private MD: Diagnosis: Chest pain, unspecified Presentation: 02/02 05:12 Chief complaint: EMS states: They were toned out for chest pain, pt states pain began 1 as6 hour [employer]ITION [employer]VER, states pain is 10/10. Coronavirus screen: Vaccine status: Patient reports receiving the 2nd dose of the covid vaccine. At this time, the client does not indicate any symptoms associated with coronavirus-19. Ebola Screen: No symptoms or risks identified at this time. Initial Sepsis Screen: Does the patient meet any 2 criteria? No. Patient's initial sepsis screen is negative. Does the patient have a suspected source of infection? No. Patient's initial sepsis screen is negative. Risk Assessment: Do you want to hurt yourself or someone else? Patient reports no desire to harm self or others. Onset of symptoms was February 02, 2022. Care prior to arrival: Medication(s) given: ASA, 81 mg, x 4. 05:12 Method Of Arrival: EMS: [facility] as6 05:12 Acuity: TONE 3 as6 Triage Assessment: 05:14 General: Appears uncomfortable, Behavior is calm, cooperative. Pain: Complains of pain as6 in xiphoid area Pain radiates to back and left arm Pain currently is 10 out of 10 on a pain scale. Pain began 1 hour ago. Is continuous. Neuro: Level of Consciousness is awake, alert, obeys commands, Oriented to person, place, time, situation. Cardiovascular: Chest pain is described as mild, quality is stabbing, is located in anterior chest wall radiates to left arm(s) back began 1 hour prior to arrival episodes are continuous. Cardiovascular: Patient's skin is warm and dry. Rhythm is Respiratory: Respiratory effort is even, unlabored, Respiratory pattern is regular, symmetrical. Derm: Skin is pink, warm \T\ dry. Historical: - Allergies: 05:14 NKA; as6 - Home Meds: 05:14 gabapentin 800 mg Oral tab 1 tab 3 times per day [Active]; omeprazole 20 mg Oral cpDR 1 as6 cap once daily [Active]; venlafaxine 75 mg Oral tab 1 tab 2 times per day [Active]; glipizide 10 mg Oral tab 1 tab once daily [Active]; tamsulosin 0.4 mg Oral Tb24 1 cap once daily [Active]; atorvastatin 40 mg Oral tab 1 tab once daily [Active]; aspirin 81 mg Oral chew [Active]; spironolactone 25 mg Oral tab 1 tab once daily [Active]; metformin 500 mg Oral tab 1 tab daily [Active]; lisinopril 2.5 mg Oral tab 1 tab once daily [Active]; furosemide 40 mg Oral tab 1 tab once daily [Active]; cyclobenzaprine 10 mg Oral tab 1 tab as needed [Active]; levothyroxine 50 mcg Tb24 1 cap once daily [Active]; - PMHx: 05:14 Arthritis; Back pain; CVA; Depression; Diabetes - NIDDM; Fibromyalgia; GERD; as6 Hypothyroidism; Left sided weakness from previous CVA; Myocardial infarction; Pacemaker; Hyperlipidemia; Hypertensive disorder; - PSHx: 05:14 bilat BKA's; bypass; CABG; as6 - Immunization history:: Client reports receiving the 2nd dose of the Covid vaccine. - Social history:: Smoking status: Patient denies any tobacco usage or history of. Assessment: 05:26 General: See triage assessment. as6 06:38 Reassessment: No changes from previously documented assessment. Patient and/or family ll3 updated on plan of care and expected duration. Pain level reassessed. Patient is alert, oriented x 3, equal unlabored respirations, skin warm/dry/pink. States pain is 7/10. 07:31 Reassessment: Patient and/or family updated on plan of care and expected duration. Pain mb8 level reassessed. Patient is alert, oriented x 3, equal unlabored respirations, skin warm/dry/pink. Pain: Pain currently is 8 out of 10 on a pain scale. Vital Signs: 05:12 BP 138 / 75; Pulse 78; Resp 20; Temp 98.6(O); Pulse Ox 100% on R/A; Weight 71.21 kg as6 (R); Pain 10/10; 07:31 BP 130 / 71; Pulse 77; Resp 15; Pulse Ox 99% ; Pain 8/10; mb8 ED Course: 05:02 Patient arrived in ED. as6 05:12 Angel Merlos MD is Attending Physician. kdr 05:14 Triage completed. as6 05:14 Arm band placed on Patient placed in an exam room, on a stretcher, on equipment monitor phototypesetting, as6 on pulse oximetry. EKG completed in triage. Results shown to MD. 05:24 Missed attempt(s): 20 gauge in right forearm. Bleeding controlled, band aid applied, aa9 catheter tip intact. 05:37 Missed attempt(s): 22 gauge in right forearm. Bleeding controlled, band aid applied, aa9 catheter tip intact. 05:40 Initial lab(s) drawn, by me, sent to lab. Inserted saline lock: 24 gauge in left wrist, as6 using aseptic technique. Blood collected. 05:44 XRAY Chest (1 view) In Process Unspecified. EDMS 07:06 Todd Huynh, RN is Primary Nurse. mb8 08:02 No provider procedures requiring assistance completed. IV discontinued, intact, mb8 bleeding controlled, No redness/swelling at site. Pressure dressing applied. Administered Medications: 06:17 Drug: Dilaudid (HYDROmorphone) 2 mg Route: IVP; Site: left wrist; ll3 08:03 Follow up: Response: No adverse reaction; Pain is decreased mb8 Outcome: 07:33 Discharge ordered by . kdr 08:02 Discharged to home via wheelchair. mb8 08:02 Condition: stable 08:02 Discharge instructions given to patient, Instructed on discharge instructions, follow up and referral plans. Demonstrated understanding of instructions, follow-up care. 09:38 Patient left the ED. mb8 Signatures: Dispatcher [employer] EDHI Angel Merlos MD MD kdr Enoc Sahu RN RN as6 Go Beauchamp RN RN ll3 Rupa Morales RN RN aa9 Todd Huynh, RN RN mb8 Corrections: (The following items were deleted from the chart) 05:23 05:14 PMHx: High Cholesterol; as as 05:23 05:14 PMHx: Hypertension; as6 as
--- NOTE | 2022-02-02 07:34 | EDPHYS ---
Physician Documentation [facility] Name: Ernie Rooney Age: 61 yrs Sex: Male : 1960 Arrival Date: 02/02/2022 Time: 05:02 Bed 5 Private MD: ED Physician Angel Merlos HPI: 02/03 03:56 This 61 yrs old Male presents to ER via EMS with complaints of Chest pain. kdr 03:58 Patient presents to the ED with left-sided chest pain. Patient presents on a regular kdr basis for the same pain. He states that the only difference today as with other presentations is that the pain is "worse". The patient is otherwise not in any acute distress and his vital signs appear to be normal. There is nothing new about this presentation versus other presentation today I have seen the same patient in the past 4 to 6 weeks. Onset: The symptoms/episode began/occurred gradually. Severity of symptoms: At their worst the symptoms were mild in the emergency department the symptoms are unchanged. The patient has not experienced similar symptoms in the past. The patient has been recently seen by a physician: The patient has been recently seen at the [facility] Emergency Department, yesterday. Historical: - Allergies: 02/02 05:14 NKA; as6 - Home Meds: 05:14 gabapentin 800 mg Oral tab 1 tab 3 times per day [Active]; omeprazole 20 mg Oral cpDR 1 as6 cap once daily [Active]; venlafaxine 75 mg Oral tab 1 tab 2 times per day [Active]; glipizide 10 mg Oral tab 1 tab once daily [Active]; tamsulosin 0.4 mg Oral Tb24 1 cap once daily [Active]; atorvastatin 40 mg Oral tab 1 tab once daily [Active]; aspirin 81 mg Oral chew [Active]; spironolactone 25 mg Oral tab 1 tab once daily [Active]; metformin 500 mg Oral tab 1 tab daily [Active]; lisinopril 2.5 mg Oral tab 1 tab once daily [Active]; furosemide 40 mg Oral tab 1 tab once daily [Active]; cyclobenzaprine 10 mg Oral tab 1 tab as needed [Active]; levothyroxine 50 mcg Tb24 1 cap once daily [Active]; - PMHx: 05:14 Arthritis; Back pain; CVA; Depression; Diabetes - NIDDM; Fibromyalgia; GERD; as6 Hypothyroidism; Left sided weakness from previous CVA; Myocardial infarction; Pacemaker; Hyperlipidemia; Hypertensive disorder; - PSHx: 05:14 bilat BKA's; bypass; CABG; as6 - Immunization history:: Client reports receiving the 2nd dose of the Covid vaccine. - Social history:: Smoking status: Patient denies any tobacco usage or history of. ROS: 02/03 03:58 Constitutional: Negative for fever, chills, and weight loss, Eyes: Negative for injury, kdr pain, redness, and discharge, ENT: Negative for injury, pain, and discharge, Neck: Negative for injury, pain, and swelling, Respiratory: Negative for shortness of breath, cough, wheezing, and pleuritic chest pain, Abdomen/GI: Negative for abdominal pain, nausea, vomiting, diarrhea, and constipation, Back: Negative for injury and pain, : Negative for injury, bleeding, discharge, and swelling, MS/Extremity: Negative for injury and deformity, Skin: Negative for injury, rash, and discoloration, Neuro: Negative for headache, weakness, numbness, tingling, and seizure activity. Psych: Negative for depression, anxiety, suicide ideation, homicidal ideation, and hallucinations, Allergy/Immunology: Negative for hives, rash, and allergies, Endocrine: Negative for neck swelling, polydipsia, polyuria, polyphagia, and marked weight changes, Hematologic/Lymphatic: Negative for swollen nodes, abnormal bleeding, and unusual bruising. Cardiovascular: Positive for chest pain, Negative for edema, orthopnea, palpitations, paroxysmal nocturnal dyspnea, acute changes. Exam: 03:58 Constitutional: This is a well developed, well nourished patient who is awake, alert, kdr and in no acute distress. Head/Face: Normocephalic, atraumatic. Eyes: Pupils equal round and reactive to light, extra-ocular motions intact. Lids and lashes normal. Conjunctiva and sclera are non-icteric and not injected. Cornea within normal limits. Periorbital areas with no swelling, redness, or edema. Neck: Trachea midline, no thyromegaly or masses palpated, and no cervical lymphadenopathy. Supple, full range of motion without nuchal rigidity, or vertebral point tenderness. No Meningismus. Chest/axilla: Normal chest wall appearance and motion. Nontender with no deformity. No lesions are appreciated. Cardiovascular: Regular rate and rhythm with a normal S1 and S2. No gallops, murmurs, or rubs. Normal PMI, no JVD. No pulse deficits. Respiratory: Lungs have equal breath sounds bilaterally, clear to auscultation and percussion. No rales, rhonchi or wheezes noted. No increased work of breathing, no retractions or nasal flaring. Abdomen/GI: Soft, non-tender, with normal bowel sounds. No distension or tympany. No guarding or rebound. No evidence of tenderness throughout. Back: No spinal tenderness. No costovertebral tenderness. Full range of motion. Skin: Warm, dry with normal turgor. Normal color with no rashes, no lesions, and no evidence of cellulitis. MS/ Extremity: Pulses equal, no cyanosis. Neurovascular intact. Full, normal range of motion. Neuro: Awake and alert, GCS 15, oriented to person, place, time, and situation. Cranial nerves II-XII grossly intact. Motor strength 5/5 in all extremities. Sensory grossly intact. Cerebellar exam normal. Normal gait. Psych: Awake, alert, with orientation to person, place and time. Behavior, mood, and affect are within normal limits. Vital Signs: 02/02 05:12 BP 138 / 75; Pulse 78; Resp 20; Temp 98.6(O); Pulse Ox 100% on R/A; Weight 71.21 kg as6 (R); Pain 10/10; 07:31 BP 130 / 71; Pulse 77; Resp 15; Pulse Ox 99% ; Pain 8/10; mb8 MDM: 06:57 Patient medically screened. kdr 02/03 03:58 Data reviewed: vital signs, nurses notes, lab test result(s), radiologic studies. kdr Counseling: I had a detailed discussion with the patient and/or guardian regarding: the historical points, exam findings, and any diagnostic results supporting the discharge/admit diagnosis, lab results, radiology results, the need for outpatient follow up. ED course: I reviewed the patient's most recent visit history and noted the medications that he is given. He normally gets morphine and Dilaudid. He usually gets 1 or 2 doses prior to being discharged. Routine labs were again sent specific to the cardiac etiology of pain all of which were negative. Patient was discharged home and routine fashion in good condition. 02/02 05:02 Order name: Basic Metabolic Panel; Complete Time: 06:41 02/02 05:02 Order name: CBC with Diff; Complete Time: 06:41 02/02 05:02 Order name: Troponin HS; Complete Time: 06:41 02/02 05:02 Order name: XRAY Chest (1 view) 02/02 05:02 Order name: EKG; Complete Time: 05:02 02/02 05:02 Order name: Cardiac monitoring; Complete Time: 05:27 02/02 05:02 Order name: EKG - Nurse/Tech; Complete Time: 05:27 02/02 05:02 Order name: IV Saline Lock; Complete Time: 05:40 02/02 05:02 Order name: Labs collected and sent; Complete Time: 05:40 02/02 05:02 Order name: O2 Per Protocol; Complete Time: 05:27 02/02 05:02 Order name: O2 Sat Monitoring; Complete Time: 05:27 02/02 07:04 Order name: EKG Electrocardiogram EDMS Administered Medications: 02/02 06:17 Drug: Dilaudid (HYDROmorphone) 2 mg Route: IVP; Site: left wrist; ll3 08:03 Follow up: Response: No adverse reaction; Pain is decreased mb8 Disposition Summary: 02/02/22 07:33 Discharge Ordered Location: Home kdr Problem: an ongoing problem kdr Symptoms: have improved kdr Condition: Stable kdr Diagnosis - Chest pain, unspecified kdr Followup: kdr - With: Private Physician - When: 2 - 3 days - Reason: If symptoms return, Further diagnostic work-up, Recheck today's complaints, Continuance of care, Re-evaluation by your physician Discharge Instructions: - Discharge Summary Sheet kdr - Nonspecific Chest Pain, Adult, Ifwo-pk-Taay kdr Forms: - Medication Reconciliation Form kdr - Thank You Letter kdr Signatures: Dispatcher [employer] EDMS Angel Merlos MD MD kdr Enoc Sahu RN RN as6 Go Beauchamp RN RN ll3 Todd Huynh RN mb8 Corrections: (The following items were deleted from the chart) 05:23 05:14 PMHx: High Cholesterol; as6 as6 05:23 05:14 PMHx: Hypertension; as6 as6
--- NOTE | 2022-02-02 10:55 | RAD REPORT ---
EXAM DESCRIPTION: RAD - Chest Single View - 02/02/2022 5:42 am COMPARISON: Chest radiograph February 01, 2022 CLINICAL HISTORY: HS MAIN CHEST PAIN FINDINGS: A single AP view of the chest demonstrates a mildly enlarged cardiomediastinal silhouette. Left chest pacemaker in place. No pneumothorax or pleural effusion. Mild left perihilar opacities. Osseous structures are intact. IMPRESSION: Stable chest. Electronically signed by: Blayne Olmstead MD 02/02/2022 6:39 AM CDT Due to temporary technical issues with the PACS/Fluency reporting system, reports are being signed by the in house radiologists without review as a courtesy to insure prompt reporting. The interpreting radiologist is fully responsible for the content of the report.
--- NOTE | 2022-02-02 17:07 | EKG ---
Test Date: 2022-02-02 Test Time: 05:03:13 Pt Sitter: AVI MEASUREMENT RESULTS: Intervals: Rate: 77 LA: 184 QRSD: 154 QT: 442 QTc: 500 [place]: P: 56 LA: 184 QRS: -14 T: 172 INTERPRETIVE STATEMENTS: Atrial-sensed ventricular-paced rhythm Abnormal ECG Compared to ECG 02/02/2022 05:02:45 No significant changes Electronically Signed On 02-02-22 17:06:33 CDT by Luca Royal
--- NOTE | 2022-02-02 17:07 | EKG ---
Test Date: 2022-02-02 Test Time: 05:02:45 Appeals Examiner: AVI MEASUREMENT RESULTS: Intervals: Rate: 78 ND: 158 QRSD: 154 QT: 440 QTc: 501 [place]: P: 36 ND: 158 QRS: -18 T: 172 INTERPRETIVE STATEMENTS: Atrial-sensed ventricular-paced rhythm Abnormal ECG Compared to ECG 01/30/2022 17:58:51 No significant changes Electronically Signed On 02-02-22 17:06:33 CDT by Luca Royal
[2022-02-03 00:40] VITALS: TEMP 98.6
[2022-02-03 00:51] VITALS: BP 130/71; O2SAT 99
== END 2022-02-02 09:38 | disposition home or self-care (01) ==
LOC: ER 04:50
DX: R07.89 Other chest pain (principal); I10 Essential (primary) hypertension; Z79.82 Long term (current) use of aspirin; Z95.0 Presence of cardiac pacemaker; Z95.1 Presence of aortocoronary bypass graft
CPT/HCPCS: 93005 ×2; 85025; 80048; 36415; 84484; 71045; 96374; 99284; J1170

== ENCOUNTER 2022-02-04 09:20 | Emergency (ER) | payer OTHER ==
--- OUTSIDE RECORDS SUMMARY | 2022-02-04 09:28 | XMS REPORT | Continuity of Care Document ---
:1960 Author Organization [facility] t Address [address] [place] [address] Care Team Providers Name Role Phone MONIKA HALL MD Primary Care Physician [id number] Attending Clinician Unavailable Harshal Zhu Attending Clinician Unavailable Finn Shah Attending Clinician Unavailable Troy KU Attending Clinician Unavailable Troy Wahl Attending Clinician MIHAELA MARTIN Attending Clinician Unavailable Mihaela Martin NP Attending Clinician Micaela Feliciano RN Attending Clinician Unavailable OC BRYSON Attending Clinician Unavailable ANA MARIA MEZA Attending Clinician Unavailable Tej_H Attending Clinician Unavailable Fede Carrera Attending Clinician Unavailable Radiology Attending Clinician Unavailable PERLA LOCKHART Attending Clinician Unavailable Gina Heath MD Attending Clinician KNOW, DOES_NOT Attending Clinician Unavailable Johnie Montanez Attending Clinician Unavailable ALEXIS COX Attending Clinician Unavailable JACQUELYN MONTES DE OCA Attending Clinician Unavailable NICHELLE PALACIOS Attending Clinician Unavailable [id number] Admitting Clinician Unavailable Nika Martin Admitting Clinician [...] Number Effective Date Expiration Date S willow 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 Type 2 Type 2 Disease Active Univers diabetes diabetes 8-29 ity of mellitus mellitus 00:00: [place] without without 00 Medical complicati complicati Br anch on, on, without without long-term long-term current current use of use of insulin insulin Essential Essential Disease Active Uni vers hypertensi hypertensi 01-17 it y of on on 00:00: [place] [id number] Medical Branch Other Other Disease Active Univers hyperlipid hyperlipid 01-17 it y of emia emia 00:00: [place] [facility] Stroke Stroke Disease Active Univers 5-12 ity of 00:00: [place] [facility] Left-sided Left-sided Disease Active U nivers weakness weakness 5 ity of 00:00: [place] [facility] Left sided Left sided Disease Active U nivers numbness numbness - ity of 00:00: [place] 00 Medical Branch S/P admn S/P admn Disease Active Unive rs tPA in tPA in -11 ity of diff fac diff fac 00:00: [place] w/n last w/n last 00 Medica l 24 hr bef 24 hr bef Bran ch adm to adm to crnt fac crnt fac Unstable Unstable Disease Active Unive rs angina angina 4-10 ity of 00:00: [place] [facility] Atypical Atypical Disease Active Unive rs chest pain chest pain 2-22 it y of 00:00: [place] [facility] [place] Chest pain Chest pain Problem Active [facility] Coronary CAD Problem Active [facility] artery (coronary [facility] disease artery Patient disease) Medical [place] Diabetic DKA Problem Active [facility] ketoacidos (diabetic Esme es is ketoacidos Patien t es) Medical [place] Hyperglyce Hyperglyce Problem Active [facility] bambi bambi [facility] Hypertensi Hypertensi Problem Active [facility] on on [facility] Pancreatit Pancreatit Problem Active [facility] is is [facility] Uncontroll Uncontroll Problem Active [facility] ed ed [facility] diabetes diabetes Patien t mellitus mellitus Medica l Center Allergies, Adverse Reactions, Alerts Allergy Allergy Status Severity Reaction(s) Onset Inactive Treating Comm ents Source Name Type Date Date Clinician No Known DA Active U 2021-0 [facility]ie 3-22 [place] [facility] 00:00: d 00 [facility] No Known DA Active U 2020-0 [facility] Allergie 3-22 [place] 00:00: d 00 [facility] No Known DA Active U 2017- [facility] Allergie 2-31 Clear s 00:00: Mejia 00 [facility] No Known DA Active U 2018-1 [facility] Allergie 2-31 Clear s 00:00: Mejia 00 [facility] No Known DA Active U 2018-0 [facility] Allergie 3-26 [place] 00:00: e 00 [facility] NO KNOWN Drug Active Univers ALLERGIE Class ity of S [place] [facility] Social History Social Habit Start Date Stop Date Quantity Comments Source History of Cigarette Smoker Universi ty of tobacco use [place] [facility] History SDOH University o f Alcohol Frequency [place] M edical Branch History SDOH University o f Alcohol Std [place] [facility] Drinks Branch History SDOH University o f Alcohol Binge [place] [facility] al [facility] Exposure to 2021-10-30 2021-11-09 Unable to assess Univers ity of SARS-CoV-2 00:00:00 15:13:00 [facility] (event) Branch Alcohol intake 2021-11-05 2021-11-05 1.71 /d University of 00:00:00 00:00:00 [facility] Branch Tobacco Comment 2021-11-03 2021-11-03 quit 15 years ago Un iversity of 00:00:00 00:00:00 [place] [facility] Education 2021-10-27 2021-10-27 9 University of 00:00:00 00:00:00 [place] [facility] History SDOH 2020-03-16 2020-03-16 3 University o f Financial 00:00:00 00:00:00 [place] [facility] History SDOH Food 2020-03-16 2020-03-16 2 Univers ity of Worry 00:00:00 00:00:00 [place] [facility] History SDOH Food 2020-03-16 2020-03-16 2 Univers ity of Scarcity 00:00:00 00:00:00 [place] [facility] History SDOH 2020-03-16 2020-03-16 1 University o f Transport Med 00:00:00 00:00:00 [place] Medic al Branch History SDOH 2020-03-16 2020-03-16 1 University o f Transport Non-Med 00:00:00 00:00:00 [place] M edical Branch Alcohol Comment 2019-07-18 2019-07-18 quit drinking Malgorzata sity of 00:00:00 00:00:00 2013 but drank [facility] heavily before Branch this Tobacco use and 2018-07-14 2018-07-14 Never used Universit y of exposure 00:00:00 00:00:00 [facility] Sex Ass[birth year] At [birth year] LUCY Sanders 00:00:00 00:00:00 Medical Center Smoking Status Start Date Stop Date Source Former smoker 2018-07-14 00:00:00 2018-07-14 00:00:00 Universi ty [facility] Medications Ordered Filled Start Stop Current Ordering [...] 11/05/21 at 0215, 1 mL gabapentin 2021- No [id number] 300mg Take 1 Univers 300 mg 11-05 capsule by ity of capsule 00:00: 04:59 mouth 3 [place] 00 :00 (three) Medical times Branch daily for 10 days. gabapentin 2021- No [id number] 300mg Take 1 Univers 300 mg 11-05 capsule by ity of capsule 00:00: 04:59 mouth 3 [place] 00 :00 (three) Medical times Branch daily for 10 days. aspirin 81 2021- No [id number] 81mg Take 1 Univers mg chewable 6-16 07-17 tablet by it y of tablet 00:00: 04:59 mouth [place] 00 :00 daily for Medical 30 days. Branch aspirin 81 2021- No [id number] 81mg Take 1 Univers mg chewable 6-16 07-17 tablet by it y of tablet 00:00: 04:59 mouth [place] 00 :00 daily for Medical 30 days. Branch aspirin 81 2021- No [id number] 81mg Take 1 Univers mg chewable 6-16 07-17 tablet by it y of tablet 00:00: 04:59 mouth [place] 00 :00 daily for Medical 30 days. Branch proMETHazin Yes [id number] 25mg Take 1 Univers e 25 mg 6-03 tablet by ity of tablet 00:00: mouth [place] 00 every 6 Medical (six) Branch hours as needed for Nausea and Vomiting (N/V). proMETHazin Yes [id number] 25mg Take 1 Univers e 25 mg 6-03 tablet by ity of tablet 00:00: mouth [place] 00 every 6 Medical (six) Branch hours as needed for Nausea and Vomiting (N/V). proMETHazin Yes [id number] 25mg Take 1 Univers e 25 mg 6-03 tablet by ity of tablet 00:00: mouth [place] 00 every 6 Medical (six) Branch hours as needed for Nausea and Vomiting (N/V). fenofibrate 2021- No [id number] 134mg Take 1 Univers micronized -19 12- capsule by it y of 134 mg 00:00: 04:59 mouth [place] capsule 00 :00 daily for Medical 30 days. Branch lisinopriL 2021- No [id number] 2.5mg Take 1 Univers 2.5 mg -19 12- tablet by ity of tablet 00:00: 04:59 mouth [place] 00 :00 daily for Medical 30 days. Branch fenofibrate 2021- No [id number] 134mg Take 1 Univers micronized -19 12- capsule by it y of 134 mg 00:00: 04:59 mouth [place] capsule 00 :00 daily for Medical 30 days. Branch lisinopriL 2021- No [id number] 2.5mg Take 1 Univers 2.5 mg -19 12- tablet by ity of tablet 00:00: 04:59 mouth [place] 00 :00 daily for Medical 30 days. Branch fenofibrate 2021- No [id number] 134mg Take 1 Univers micronized -19 12- capsule by it y of 134 mg 00:00: 04:59 mouth [place] capsule 00 :00 daily for Medical 30 days. Branch lisinopriL 2021- No [id number] 2.5mg Take 1 Univers 2.5 mg -19 12- tablet by ity of tablet 00:00: 04:59 mouth [place] 00 :00 daily for Medical 30 days. Branch furosemide 2021- No [id number] 40mg Take 1 Univers 40 mg 5-30 [...] s: atrial fibrillati on calcitrioL 2021- No [id number] .5ug Take 1 Univers 0.5 mcg 5-30 06-30 capsule by ity o f capsule 00:00: 04:59 mouth [place] 00 :00 daily for Medical 30 days. Branch insulin NPH 2021- No [id number] 5U inject 5 Univers (HUMULIN N 5-30 06-30 Units ity of NPH U-100 00:00: 04:59 [place] 00 :00 skin every Medic al 100 unit/mL evening Branc h injection for 30 days. atorvastati 2021- No [id number] 40mg Take 1 Univers n 40 mg 5-30 -30 tablet by ity of tablet 00:00: 04:59 mouth at [place] 00 :00 bedtime Medical for 30 Branch days. carvediloL 2021- No [id number] 3.125mg Take 1 Univers 3.125 mg 5-30 06-30 tablet by ity o f tablet 00:00: 04:59 mouth 2 [place] 00 :00 (two) Medical times Hominy daily with meals for 30 days. furosemide 2021- No [id number] 40mg Take 1 Univers 40 mg 5-30 06-30 tablet by ity of tablet 00:00: 04:59 mouth [place] 00 :00 every Medical morning Branch and evening for 30 days. apixaban 5 2021- No [id number] 5mg Take 1 Univ ers mg tablet 5-30 06-30 tablet by ity of 00:00: 04:59 mouth 2 [place] 00 :00 (two) Medical times Hominy daily for 30 days. Indication s: atrial fibrillati on calcitrioL 2021- No [id number] .5ug Take 1 Univers 0.5 mcg 5-30 06-30 capsule by ity o f capsule 00:00: 04:59 mouth [place] 00 :00 daily for Medical 30 days. Branch insulin NPH 2021- No [id number] 5U inject 5 Univers (HUMULIN N 5-30 06-30 Units ity of NPH U-100 00:00: 04:[place] 00 :00 skin every Medic al 100 unit/mL evening Branc h injection for 30 days. atorvastati 2021- No [id number] 40mg Take 1 Univers n 40 mg 5-30 06-30 tablet by ity of tablet 00:00: 04:59 mouth at [place] 00 :00 bedtime Medical for 30 Branch days. carvediloL 2021- No [id number] 3.125mg Take 1 Univers 3.125 mg 5-30 -30 tablet by ity o f tablet 00:00: 04:59 mouth 2 [place] 00 :00 (two) Medical times Branch daily with meals for 30 days. furosemide 2021- No [id number] 40mg Take 1 Univers 40 mg 5-30 [...] s: atrial fibrillati on calcitrioL 2021- No [id number] .5ug Take 1 Univers 0.5 mcg 5-30 -30 capsule by ity o f capsule 00:00: 04:59 mouth [place] 00 :00 daily for Medical 30 days. Branch insulin NPH 2021- No [id number] 5U inject 5 Univers (HUMULIN N 5-30 06-30 Units ity of NPH U-100 00:00: 04:[place]ULIN[place] 00 :00 skin every Medic al 100 unit/mL evening Branc h injection for 30 days. atorvastati 2021- No [id number] 40mg Take 1 Univers n 40 mg 5-30 -30 tablet by ity of tablet 00:00: 04:59 mouth at [place] 00 :00 bedtime Medical for 30 Branch days. carvediloL 2021- No [id number] 3.125mg Take 1 Univers 3.125 mg 5-30 -30 tablet by ity o f tablet 00:00: 04:59 mouth 2 [place] 00 :00 (two) Medical times Branch daily with meals for 30 days. metFORMIN Yes [id number] 500mg Take 1 U nivers 500 mg 3-02 tablet by ity of tablet 00:00: mouth 2 [place] 00 (two) Medical times Branch daily with meals. metFORMIN 0 Yes [id number] 500mg Take 1 U nivers 500 mg 3-02 tablet by ity of tablet 00:00: mouth 2 [place] (two) Medical times Branch daily with meals. metFORMIN 0 Yes [id number] 500mg Take 1 U nivers 500 mg 3-02 tablet by ity of tablet 00:00: mouth 2 [place] (two) Medical times Branch daily with meals. albuterol Yes [id number] 2{puff} Inhale 2 Univers 90 2-21 Puffs 2 ity of mcg/actuati 00:00: (two) [place] on inhaler 00 times Medical daily. Branch collagenase Yes [id number] Use as Univers 250 2-21 directed ity of unit/gram 00:00: by office Juan J as ointment 00 Medical Branch cyclobenzap Yes [id number] 10mg Take 1 Univers rine 10 mg 2-21 tablet by ity of tablet 00:00: mouth [place] (two) Medical times Branch daily as needed for Muscle Spasms. dextrometho Yes [id number] 10mL Take 10 mL Univers rphan-guaif 2-21 [...] Pain (scale 4-6). melatonin 3 0 Yes [id number] 3mg Take 1 Univers mg tablet 2-21 tablet by ity o f 00:00: mouth at [place] 00 bedtime. Medical Branch ondansetron 0 Yes [id number] 4mg Take 1 Univers 4 mg 2-21 tablet by ity of disintegrat 00:00: mouth [place] ing tablet 00 every 8 Medica l (eight) Branch hours as needed for Nausea and Vomiting (N/V). albuterol 0 Yes [id number] 2{puff} Inhale 2 Univers 90 2-21 Puffs 2 ity of mcg/actuati 00:00: (two) [place] on inhaler 00 times Medical daily. Branch collagenase Yes [id number] Use as Univers 250 2-21 directed ity of unit/gram 00:00: by office Juan J as ointment 00 Medical Branch cyclobenzap Yes [id number] 10mg Take 1 Univers rine 10 mg 2-21 tablet by ity of tablet 00:00: mouth 2 [place] 00 (two) Medical times Branch daily as needed for Muscle Spasms. dextrometho Yes [id number] 10mL Take 10 mL Univers rphan-guaif 2-21 [...] Pain (scale 4-6). melatonin 3 0 Yes [id number] 3mg Take 1 Univers mg tablet 2-21 tablet by ity o f 00:00: mouth at [place] 00 bedtime. Medical Branch ondansetron 0 Yes [id number] 4mg Take 1 Univers 4 mg 2-21 tablet by ity of disintegrat 00:00: mouth [place] ing tablet 00 every 8 Medica l (eight) Branch hours as needed for Nausea and Vomiting (N/V). albuterol Yes [id number] 2{puff} Inhale 2 Univers 90 2-21 Puffs 2 ity of mcg/actuati 00:00: (two) [place] on inhaler 00 times Medical daily. Branch collagenase Yes [id number] Use as Univers 250 2-21 directed ity of unit/gram 00:00: by office Juan J as ointment 00 Medical Branch cyclobenzap Yes [id number] 10mg Take 1 Univers rine 10 mg 2-21 tablet by ity of tablet 00:00: mouth 2 [place] 00 (two) Medical times Branch daily as needed for Muscle Spasms. dextrometho 0 Yes [id number] 10mL Take 10 mL Univers rphan-guaif 2-21 [...] for Pain (scale 4-6). melatonin 3 Yes [id number] 3mg Take 1 Univers mg tablet 2-21 tablet by ity o f 00:00: mouth at [place] 00 bedtime. Medical Branch ondansetron Yes [id number] 4mg Take 1 Univers 4 mg 2-21 tablet by ity of disintegrat 00:00: mouth [place] ing tablet 00 every 8 Medica l (eight) Branch hours as needed for Nausea and Vomiting (N/V). Aspirin 81 Aspirin 81 2018- No Alexis [address] Mg Tab.chew Mg Tab.chew 10-26 Brooke Frankel 00:00: 00:00 Patient 00 :00 [facility] Diflunisal Diflunisal 2015- No Todd Wynn [address] [facility] (Dolobid) (Dolobid) 01-17[facility] 500 Mg 500 Mg 00:00: 00:00 Patient Tablet, 500 Tablet, 500 00 :00 M edical Mg Oral Mg Oral [place] Ondansetron Ondansetron 2015- No Todd Wynn [address] [facility] Hcl Hcl 01-17 [place] as Luke s (Zofran*) 4 (Zofran*) 4 00:00: 00:00 needed for Patient Mg Tablet, Mg Tablet, 00 :00 Nausea M edical 4 Mg 4 Mg [place] Sublingual Sublingual Clopidogrel Clopidogrel Yes 75 Daily [...] [facility] nophen nophen needed for Patie nt ([place] [facility] 10-325 10-325 Center Tablet) 1 [...] Mg 20 Mg [facility] Capsule. Capsule.dr [facility] Simvastatin Simvastatin Yes [address] 80 Mg 80 Mg [facility] Tablet Tablet Patient [facility] Center Tamsulosin Tamsulosin Yes Daily [facility] Hcl 0.4 Mg Hcl 0.4 Mg Esme es Cap.er.24h Cap.er.24h Pat [facility] Tramadol Tramadol Yes 50 [facility] C [...] Navid tietangela Mg Oral Mg Oral :00 [facility] Insulin Insulin 2017- No 40 7AM [...] 06-17 [facility] Capsule., Capsule., 00:00 Patient :00 [facility] Insulin Insulin No Twice A [facility] [...] 25 Mg Oral 25 Mg Oral :00 [facility] Albuterol Albuterol No 90 As Needed [facility] [...] Mg Oral 40 Mg Oral Sucralfate Sucralfate No [address] [facility] 1 Gm 1 Gm 11-23 Day [facility] Tablet, 1 Tablet, 1 00:00 Manjula ent Gm Oral Gm Oral :00 [facility] Temazepam Temazepam [address] (Restoril) (Restoril) 11-23 Theresa kes 30 Mg 30 Mg 00:00 Patient Capsule, 30 Capsule, 30 :00 M edical Mg Oral Mg Oral Center Tizanidine Tizanidine No [address] Hcl 4 Mg Hcl 4 Mg 11-23 [facility] Capsule, 4 Capsule, 4 00:00 Pa tient Mg Oral Mg Oral :00 [facility] Trazodone Trazodone No [address] Hcl 50 Mg Hcl 50 Mg 11-23 Luke s Tablet, 50 Tablet, 50 00:00 Pa tient Mg Oral Mg Oral :00 [facility] Venlafaxine Venlafaxine No 37.[address] [facility] Hcl 37.5 Mg Hcl 37.5 Mg 11-23 Day [facility] Tablet, Tablet, 00:00 Patient 37.5 Tab 37.5 Tab :00 Medical Oral Oral Center Cyclobenzap Cyclobenzap [address] rine Hcl 10 rine Hcl 10 12-19 Times A [facility] Mg Tablet, Mg Tablet, 00:00 Day Pa tient 10 Mg Oral 10 Mg Oral :00 [facility] ical [place] Gabapentin Gabapentin [address] 300 Mg 300 Mg 12-19 Times A [facility] Capsule, Capsule, 00:00 Day Patien t 600 Mg Oral 600 Mg Oral :00 M [facility] Pregabalin Pregabalin No 150 Twice [...] Immunizations Ordered Filled Immunization Date Status Comments [facility] e Immunization Name Name Influenza Virus 2021-01-16 Completed Universit y of Vaccine 00:00:00 [facility] Influenza Virus 2021-01-16 Completed Universit y of Vaccine 00:00:00 [facility] Influenza Virus 2021-01-16 Completed Universit y of Vaccine 00:00:00 [facility] SARS-COV-2 COVID-19 2020-10-16 Completed Unive rsity of PEDRO/J&J VACCINE 00:00:00 [facility] SARS-COV-2 COVID-19 2020-10-16 Completed Unive rsity of PEDRO/J&J VACCINE 00:00:00 [facility] SARS-COV-2 COVID-19 2020-10-16 Completed Unive rsity of PEDRO/J&J VACCINE 00:00:00 [facility] Influenza Virus 2020-01-21 Completed Universit y of Vaccine 00:00:00 [facility] Influenza Virus 2020-01-21 Completed Universit y of Vaccine 00:00:00 [facility] Influenza Virus 2020-01-21 Completed Universit y of Vaccine 00:00:00 [facility] Zoster Vaccine 2019-07-17 Completed University of Recombinant 00:00:00 [facility] Zoster Vaccine 2019-07-17 Completed University of Recombinant 00:00:00 [facility] Zoster Vaccine 2019-07-17 Completed University of Recombinant 00:00:00 [facility] Td 2019-03-29 Completed University of 00:00:00 [facility] Td 2019-03-29 Completed University of 00:00:00 [facility] Td 2019-03-29 Completed University of 00:00:00 [facility] Influenza Virus 2018-02-18 Completed Universit y of Vaccine 00:00:00 [facility] Pneumococcal 2018-02-18 Completed University o f Polysaccharide, 00:00:00 [place] Med ical PPSV23 (PNEUMOVAX) [place] Influenza Virus 2018-02-18 Completed Universit y of Vaccine 00:00:00 [facility] Pneumococcal 2018-02-18 Completed University o f Polysaccharide, 00:00:00 [place] Med ical PPSV23 (PNEUMOVAX) [place] Influenza Virus 2018-02-18 Completed Universit y of Vaccine 00:00:00 [facility] Pneumococcal 2018-02-18 Completed University o f Polysaccharide, 00:00:00 [place] Med ical PPSV23 (PNEUMOVAX) [place] Influenza Virus 2008-03-19 Completed Universit y of Vaccine 00:00:00 [facility] Pneumococcal 2008-03-19 Completed University o f Polysaccharide, 00:00:00 [facility] ical PPSV23 (PNEUMOVAX) Branch Influenza Virus 2008-03-19 Completed Universit y of Vaccine 00:00:00 [facility] Pneumococcal 2008-03-19 Completed University o f Polysaccharide, 00:00:00 [place] Med ical PPSV23 (PNEUMOVAX) Branch Influenza Virus 2008-03-19 Completed Universit y of Vaccine 00:00:00 [facility] Pneumococcal 2008-03-19 Completed University o f Polysaccharide, 00:00:00 [facility] ical PPSV23 (PNEUMOVAX) Branch Vital Signs Vital Name Observation Time Observation Value Comments Source Systolic blood 2021-11-09 23:00:00 124 mm[Hg] Univer sity of pressure [facility] Diastolic blood 2021-11-09 23:00:00 69 mm[Hg] Unive rsity of [facility] Heart rate 2021-11-09 23:00:00 72 /min [facility] ty [facility] Respiratory rate 2021-11-09 23:00:00 25 /min [facility] O[facility] saturation in 2021-11-09 23:00:00 98 /min University of Arterial blood by [place] FoxyP2 Pulse oximetry Branch Body temperature 2021-11-09 20:28:39 37.22 Sandy [facility] Body height 2021-11-09 20:16:00 170.2 cm [facility] Body weight 2021-11-09 20:16:00 71.215 kg [facility] BMI 2021-11-09 20:16:00 24.59 kg/m2 [facility] Systolic blood 2021-11-05 10:00:00 134 mm[Hg] Univer sity of [facility] Diastolic blood 2021-11-05 10:00:00 78 mm[Hg] Unive rsity of pressure [facility] Heart rate 2021-11-05 10:00:00 81 /min [facility] Body temperature 2021-11-05 08:10:00 36.28 Sandy [facility] ersity [facility] Respiratory rate 2021-11-05 08:00:00 18 /min [facility] Oxygen saturation in 2021-11-05 08:00:00 99 /min [facility] Arterial blood by [employer] Pulse oximetry Branch Body height 2021-11-05 05:48:00 170.2 cm [facility] Body weight 2021-11-05 05:48:00 71.215 kg [facility] BMI 2021-11-05 05:48:00 24.59 kg/m2 [facility] Procedures Procedure Date / Time Performing Clinician Source Performed B-TYPE NATRIURETIC 2022-01-30 18:10:00 LUCY [facility] (BNP) Center XR CHEST 1 VW 2021-11-09 21:07:00 Troy Ku Mckenzie [facility] POCT GLUCOSE 2021-11-09 20:25:00 Troy Ku Mckenzie [facility] (AUTOMATED) [facility] MAGNESIUM 2021-11-09 20:19:00 Troy Ku [facility] TROPONIN I 2021-11-09 20:19:00 Troy Ku Mckenzie [facility] COMP. METABOLIC PANEL 2021-11-09 20:19:00 Troy Ku [facility] ([id number]) [facility] CBC WITH DIFF 2021-11-09 20:19:00 Troy Ku [facility] N-TERMINAL PRO-BNP 2021-11-09 20:19:00 Troy Ku [facility] XR CHEST 1 2021-11-05 06:38:35 Mihaela Martin [facility] [place] [id number] 2020-08-11 00:00:00 ALDMO [facility] [id number] 2020-08-11 00:00:00 ALDMO [facility] [id number] 2020-08-11 00:00:00 ALDMO [facility] [id number] 2020-08-11 00:00:00 ALDMO [facility] Computed tomography 2017-10-24 00:00:00 ALEXIS [facility] Patient angiography of brain [facility] CT angiography of chest 2017-10-23 00:00:[address] [facility] Computed tomography of 2017-10-23 00:00:[address] [facility] Patient brain without [...] Clinicians Facility Department ID 2021-06-17 Outpatient 3 [id number] ENCKY MALDONADO [id number] [facility] 10:24:03 [id number] 2021-06-17 Outpatient 3 [id number] ENCKY REF [id number] ENCK[facility] 10:22:04 [id number] 2020-08-23 Inpatient HCACL FERNANDO [id number] [facility] 17:41:00 [facility] 2020-04-04 Inpatient Marko, HCAMN HCAMN [id number] [facility] 14:40:00 Edward 33 [facility] 2019-10-15 Inpatient RADHA Shah, HCAPM ENDO [id number] [facility] 15:30:00 Finn [id number] [facility] 2022-01-30 2022-01-30 Lab [facility] [id number] 00:00:00 00:00:00 Requisitio [facility] 2022-01-30 2022-01-30 Lab [facility] [id number] [address] 00:00:00 00:00:00 Requisitio [facility] 2021-11-09 2021-11-09 Emergency X KINGS, K [facility] ERT [id number] Univers 15:15:00 18:32:00 ity of [facility] 2021-11-09 2021-11-09 Emergency Kings, K [facility] 1.2.840.114 [id number] Univers 15:15:00 18:32:00 Mckenzie PEREZ 350.1.13.10 i ty [facility] 4.2.7.2.686 [facility] [id number] [address] 2021-11-05 2021-11-05 Emergency X VERONICA, [facility] ERT [id number] Univers 00:44:00 06:53:00 MIHAELA baugh [facility] 2021-11-05 2021-11-05 Emergency Veronica, [facility] [id number] Univers 00:44:00 06:53:00 Mihaela SILVESTREABHISHEK 350.1.13.10 ity of ADELIA 4.2.7.2.686 [facility] [id number] [facility] [address] 2021-11-04 2021-11-04 Transition RIVAS Feliciano 1.2.840.114 [id number] Univers 00:00:00 00:00:00 of Care Micaela DUQUE 350.1.13.10 it y of MARIE 4.2.7.2.686 [facility]ly [facility] [id number] [facility] [address] 2021-11-02 2021-11-03 Outpatient X BRAYDON, [facility] DARIUS [id number] Univers 22:35:00 15:46:00 OC baugh [facility] 2021-10-27 2021-10-29 Outpatient X DERRICK, [facility] DARIUS [id number] Univers 17:41:00 14:03:00 ANA MARIA vashti [facility] 2021-07-21 2021-07-21 Outpatient Wong_H VFP VFP [id number] [facility] 06:58:00 06:58:00 [id number] Family Practic e 2020-10-30 2020-11-05 [address]IP Carrera [facility] [id number] [facility] 16:50:00 13:52:00 Fede 9[address] [facility] 2020-10-31 2020-10-31 Outpatient AMELIA Carrera LABO [id number] [facility] 08:22:00 08:22:00 Fede [facility] 2020-10-28 2020-10-28 Hospital Radiology [facility] 1.2.840.114 [id number] 08:30:17 23:59:00 Encounter Sera 350.1.13.10 [place] 4.2.7.2.686 [place] [id number] 2020-10-12 2020-10-12 Outpatient R LUIS ANTONIOSalvador [facility] [id number] Univers 14:00:00 14:50:48 PERLA baugh [facility] 2020-10-06 2020-10-06 Office Ivana [facility] 1.2.840.114 [id number] 10:43:51 11:59:29 Visit Gina Perez 350.1.13.10 Adelia 4.2.7.2.686 Piyush [id number] [facility] 205 Building 2020-08-19 2020-08-19 Outpatient MAURILIO, [facility] [id number] [facility] 07:13:00 07:13:00 DOES_NOT 89 [facility] 2020-08-10 2020-08-14 Inpatient EM ANNEL MontanezCL INTE.02 [id number] [facility] 09:09:00 18:56:[address] [place] [address] 2017-10-23 2017-10-27 Discharged 1 [facility] [id number] 17:29:00 16:54:00 Inpatient ALEXIS 90 [facility] s [facility] 2017-04-03 2017-04-04 [facility] [id number] 23:17:00 03:53:00 Emergency LAIRD 56 Luke s Room [facility] 2017-03-05 2017-03-09 Discharged [facility] [id number] 06:54:00 10:58:00 Inpatient NICHELLE 46 Luke s (obs) [facility] 2017-01-04 2017-01-05 Discharged [facility] [id number] 10:33:00 18:56:00 Inpatient 63 Luke s (obs) [facility] Results Test Description Test Time Test Comments Results Result Comments Source B-type Natriuretic Factor (BNP) 2022-01-30 23:33:12 Test Item Value Reference Range Interpretation Comme nts BNP (test code = 41650-6) 443 pg/mL 0-100 H DIANE (test code = DIANE) Transitional Care Liaison ID - ADRY Lab Interpretation (test code = 13707-0) [facility]normal [facility]2022-01-30 23:33:12 Test Item Value Reference Range Interpretation Comments BNP (test code = 48718-6) 443 pg/mL 0-100 H DIANE (test code = DIANE) Transitional Care Liaison ID - ADRY Lab Interpretation (test Abnormal code = 73380-0) [facility] (BNP)2022-01-30 23:33:12 Test Item Value Reference Range Interpretation Comments BNP (test code = 57568-4) 443 pg/mL 0-100 H DIANE (test code = DIANE) Transitional Care Liaison ID - ADRY Lab Interpretation (test Abnormal code = 17790-3) [facility] NATRIURETIC FACTOR (BNP)2022-01-30 23:33:12 Test Item Value Reference Range Interpretation Comments B-TYPE NATRIURETIC PEPTIDE (BEAKER) 443 pg/mL 0-100 H (test code = 700) Transitional Care Liaison ID - ADRYTROPONIN [id number] 20:57:59 Test Item Value Reference Interpretation Comments Range TROPONIN I (test 0.017 ng/mL See_Comment [Automated code = 8546775955) message] The system which generated this result [...] biotin. Lab Interpretation Normal (test code = 55827-3) [id number] 20:54:59 Test Item Value Reference Range Interpretation Comments NT-proBNP (test code 6490 pg/mL See_Comment H [Autom ated = 5793159118) message] The system which generated this result transmitted reference range : <=125. The reference range was not used to interpret this result as normal/abnormal . DIANE (test code = DIANE) Biotin has been reported to cause a negative bias, interpret results relative to patient's use of biotin. Lab Interpretation Abnormal (test code = 10397-8) [facility]2022-[facility]-21 20:46:35 Test Item Value Reference Range Interpretation Comments MAGNESIUM (test code = 5952127916) 1.5 mg/dL 1.7-2.4 L Lab Interpretation (test code = Abnormal 79345-8) [facility]. METABOLIC PANEL (48185)2021-11-09 20:46:34 Test Item Value Reference Range Interpretation Comments NA (test code = 140 mmol/L 135-145 7154327238) K (test code = 3.9 mmol/L 3.5-5.0 0729251007) CL (test code = 111 mmol/L 98-108 H 8959001091) CO2 TOTAL (test code = 16 mmol/L 23-31 L 9336702011) AGAP (test code = 2-16 2762085015) BUN (test code = 14 mg/dL 7-23 5371396368) GLUCOSE (test code = 189 mg/dL 70-110 H 5847404304) CREATININE (test code = 0.66 mg/dL 0.60-1.25 4455954389) TOTAL BILI (test code = 0.8 mg/dL 0.1-1.1 6637391650) CALCIUM (test code = 8.3 mg/dL 8.6-10.6 L 3667710275) T PROTEIN (test code = 6.5 g/dL 6.3-8.2 0584545865) ALBUMIN (test code = 3.3 g/dL 3.5-5.0 L 1515033450) ALK PHOS (test code = 136 U/L 34-122 H 4757157006) ALTv (test code = 18 U/L 5-50 1742-6) AST(SGOT) (test code = 26 U/L 13-40 3081999891) eGFR (test code = mL/min/1.73m2 0941567907) DIANE (test code = DIANE) Association of [...] tests). Lab Interpretation Abnormal (test code = 49357-5) [facility] WITH [id number] 20:33:30 Test Item Value Reference Range Interpretation Comments WBC (test code = See_Comment [Automated 6020-2) message] The sy stem which generated this result transmitted reference range : 4.20 - 10.70 10*3/?L. The reference range was not used to interpret this result as normal/abnormal . RBC (test code = See_Comment [Automated 950-8) message] The sy stem which generated this [...] RDW-SD (test code = 45.4 fL 38.5-51.6 37552-7) RDW-CV (test code = 14.2 % 12.1-15.4 788-0) PLT (test code = See_Comment [Automated 777-3) message] The sy stem which generated this result transmitted reference range : 150 - 328 10*3/ ?L. The reference r batsheva was not used to interpret this result as normal/abnormal . MPV (test code = 9.8 fL 9.8-13.0 81042-6) NRBC/100 WBC (test See_Comment [Automat ed code = 5660074109) message] The system which generated this result transmitted reference range : 0.0 - 10.0 /100 WBCs. The refer ence range was not u sed to interpret th is result as normal/abnormal . NRBC x10^3 (test code <0.01 See_Comment [Auto mated = 5057045082) message] The s ystem which generated this result transmitted reference range : 10*3/?L. The reference range was not used to interpret this result as normal/abnormal . GRAN MAT (NEUT) % 62.3 % (test code = 770-8) IMM GRAN % (test code 0.80 % = 5356033723) LYMPH % (test code = 25.1 % 736-9) MONO % (test code = 6.7 % 5905-5) EOS % (test code = 4.7 % 713-8) BASO % (test code = 0.4 % 706-2) GRAN MAT x10^3(ANC) 4.76 10*3/uL 1.99-6.95 (test code = 0438473412) IMM GRAN x10^3 (test 0.06 10*3/uL 0.00-0.06 code = 7379592212) LYMPH x10^3 (test code 1.92 10*3/uL 1.09-3.23 = 731-0) MONO x10^3 (test code 0.51 10*3/uL 0.36-1.02 = 742-7) EOS x10^3 (test code = 0.36 10*3/uL 0.06-0.53 711-2) BASO x10^3 (test code 0.03 10*3/uL 0.01-0.09 = 704-7) Lab Interpretation Abnormal (test code = 17554-1) [facility])2021-11-09 20:27:39 Test Item Value Reference Range Interpretation Comments POCT GLU (test code = 7086401622) 190 mg/dL 70-110 H Lab Interpretation (test code = Abnormal 52911-5) [facility] [id number] 11:52:00 Test Item Value Reference Range Interpretation Comments GLUCOSE BEDSIDE TESTING (test code = 92 mg/dL 70-110 N GLUBED) GLUCOSE BEDSIDE [id number] 08:05:00 Test Item Value Reference Range Interpretation Comments GLUCOSE BEDSIDE TESTING (test code = 62 mg/dL 70-110 L GLUBED) GLUCOSE BEDSIDE [id number] 20:40:00 Test Item Value Reference Range Interpretation Comments GLUCOSE BEDSIDE TESTING (test code 105 mg/dL 70-110 N = GLUBED) GLUCOSE BEDSIDE [id number] 17:02:00 Test Item Value Reference Range Interpretation Comments GLUCOSE BEDSIDE TESTING (test code 128 mg/dL 70-110 H = GLUBED) GLUCOSE BEDSIDE [id number] 16:37:00 Test Item Value Reference Range Interpretation Comments GLUCOSE BEDSIDE TESTING (test code 105 mg/dL 70-110 N = GLUBED) GLUCOSE BEDSIDE [id number] 08:17:00 Test Item Value Reference Range Interpretation Comments GLUCOSE BEDSIDE TESTING (test code = 88 mg/dL 70-110 N GLUBED) GLUCOSE BEDSIDE [id number] 19:45:00 Test Item Value Reference Range Interpretation Comments GLUCOSE BEDSIDE TESTING (test code 115 mg/dL 70-110 H = GLUBED) GLUCOSE BEDSIDE [id number] 18:13:00 Test Item Value Reference Range Interpretation Comments GLUCOSE BEDSIDE TESTING (test code = 74 mg/dL 70-110 N GLUBED) GLUCOSE BEDSIDE [id number] 17:29:00 Test Item Value Reference Range Interpretation Comments GLUCOSE BEDSIDE TESTING (test code = 44 mg/dL 70-110 LL GLUBED) GLUCOSE BEDSIDE [id number] 12:26:00 Test Item Value Reference Range Interpretation Comments GLUCOSE BEDSIDE TESTING (test code = 96 mg/dL 70-110 N GLUBED) GLUCOSE BEDSIDE [id number] 08:21:00 Test Item Value Reference Range Interpretation Comments GLUCOSE BEDSIDE TESTING (test code = 77 mg/dL 70-110 N GLUBED) GLUCOSE BEDSIDE [id number] 20:12:00 Test Item Value Reference Range Interpretation Comments GLUCOSE BEDSIDE TESTING (test code = 91 mg/dL 70-110 N GLUBED) GLUCOSE BEDSIDE [id number] 16:42:00 Test Item Value Reference Range Interpretation Comments GLUCOSE BEDSIDE TESTING (test code 106 mg/dL 70-110 N = GLUBED) GLUCOSE BEDSIDE [id number] 11:49:00 Test Item Value Reference Range Interpretation Comments GLUCOSE BEDSIDE TESTING (test code = 89 mg/dL 70-110 N GLUBED) GLUCOSE BEDSIDE [id number] 08:22:00 Test Item Value Reference Range Interpretation Comments GLUCOSE BEDSIDE TESTING (test code = 68 mg/dL 70-110 L GLUBED) GLUCOSE BEDSIDE [id number] 20:05:00 Test Item Value Reference Range Interpretation Comments GLUCOSE BEDSIDE TESTING (test code 137 mg/dL 70-110 H = GLUBED) GLUCOSE BEDSIDE [id number] 16:42:00 Test Item Value Reference Range Interpretation Comments GLUCOSE BEDSIDE TESTING (test code = 98 mg/dL 70-110 N GLUBED) GLUCOSE BEDSIDE [id number] 11:13:00 Test Item Value Reference Range Interpretation Comments GLUCOSE BEDSIDE TESTING (test code 118 mg/dL 70-110 H = GLUBED) GLUCOSE BEDSIDE [id number] 07:37:00 Test Item Value Reference Range Interpretation Comments GLUCOSE BEDSIDE TESTING (test code 140 mg/dL 70-110 H = GLUBED) COMPREHENSIVE METABOLIC [id number] 06:34:00 Test Item Value Reference Range Interpretation [...] TOTAL (test code = ALKP) CBC W/AUTO [id number] 06:25:00 Test Item Value Reference Range Interpretation [...] DIFF/SCN CRITERIA = MDIFF) - CT ABDOMEN W/[id number] 03:09:00 [facility] 1960 Sex: M Name: FAITH VANCE [facility] : 1960 Age/S: 60 / M [address] [address] [place] Unit #: [id number] Loc: [place] [address] Phys: Fede Carrera DO Acct: [id number] Dis Date: Status: ADM IN PHONE #: [phone] Exam Date: 10/31/20201919 FAX #: Reason: NAUSEA, VOMITING, DIARRHEA EXAMS: CPT: [id number] CT ABDOMEN W/CONTRAST 40203 EXAM: - CT ABDOMEN W/CONTRAST LOCATION: H61 [...] 1 Signed Report (CONTINUED) Name: FAITH VANCE [facility] : 1960 Age/S: 60 / M [address] [address] [place] Unit #: [id number] Loc: [place] [address] Phys: Fede Preston DO Acct: [id number] Dis Date: Status: ADM IN PHONE #: [phone] Exam Date: 10/31/20201919 FAX #: Reason: NAUSEA, VOMITING, DIARRHEA EXAMS: CPT: [id number] CT ABDOMEN W/CONTRAST 99959 <Continued> small bowel wall thickening. The appendix [...] 11/01/2020 (031) PAGE 2 Signed ReportGLUCOSE BEDSIDE [id number] 21:34:00 Test Item Value Reference Range Interpretation Comments GLUCOSE BEDSIDE TESTING (test code 161 mg/dL 70-110 H = GLUBED) GLUCOSE BEDSIDE [id number] 17:32:00 Test Item Value Reference Range Interpretation Comments GLUCOSE BEDSIDE TESTING (test code 136 mg/dL 70-110 H = GLUBED) - XR ABDOMEN 1 [id number] 12:44:00 [facility] 1960 Sex: M Name: FAITH VANCE [place] : 1960 Age/S: 60 / M [id number] [place] [address] Unit #: [id number] Loc: [place] [address] Phys: Fede Carrera DO Acct: [id number] Dis Date: Status: ADM IN PHONE #: [phone] Exam Date: 10/31/2020 1227 FAX #: Reason: Abdominal pain in the lower qudarants EXAMS: CPT: [id number] XR ABDOMEN 1 V 19175 Fluoro Time: DAP (Gy m2): Air Kerma [...] DO PAGE1 Signed Report Name: FAITH VANCE [place] : 1960 Age/S: 60 / M [address] [place] [address] Unit #: [id number] Loc: [place] [address] Phys: Fede Carrera DO Acct: [id number] Dis Date: Status: ADM IN PHONE #: [phone] Exam Date: 10/31/2020 1227 FAX #: Reason: Abdominal pain in the lower qudarants EXAMS: CPT: [id number] XR ABDOMEN 1 V 97797 Fluoro Time: DAP (Gy m2): Air Kerma (mGy): < Continued> Technologist: Cecelia Arias RT(R) Trnscb Date/Time: 10/31/2020 (7060) RubinaR.AGV Orig Print D/T: S: 10/31/2020 (5505) PAGE 2 Signed Report GLUCOSE BEDSIDE [id number] 11:58:00 Test Item Value Reference Range Interpretation Comments GLUCOSE BEDSIDE TESTING (test code 105 mg/dL 70-110 N = GLUBED) GLUCOSE BEDSIDE [id number] 08:01:00 Test Item Value Reference Range Interpretation Comments GLUCOSE BEDSIDE TESTING (test code 106 mg/dL 70-110 N = GLUBED) [id number] 22:46:00 Test Item Value Reference Range Interpretation [...] yby method. Completed by Nursing: NOGLUCOSE BEDSIDE [id number] 21:55:00 Test Item Value Reference Range Interpretation Comments GLUCOSE BEDSIDE TESTING (test code 119 mg/dL 70-110 H = GLUBED) [id number] 19:33:00 Test Item Value Reference Range Interpretation [...] babak yby method. Completed by Nursing: NOCoronavirus 2018 nCoV [id number] 18:46:00 Test Item Value Reference Range Interpretation Comments Coronavirus 2019 nCoV Negative Negative Per ma nufacturer, Bedside (test code = negativ e results should [id number]) be treated aspresumptive a nd, if inconsistent wi th clinical signs andsymptoms or necessary for p atient management, el celia betested with a n alternative mol ecular assay. Negative resultsdo not p reclude SARS-CoV-2 infe ction and should not be usedas the sole basis for patient man agement decisions. Nega tive results should be considered in t he context of apat ient's recent exposure s, history, presen ce of clinicalsigns a nd symptoms consis tent with COVID-19. Spec Comments: NNT PRO-BRAIN NATRIURETIC [id number] 15:51:00 Test Item Value Reference Range Interpretation Comments NT PRO-BRAIN NATRIURETIC PEPTI 6079 PG/ML 0-100 H (test code = PROBNP) Completed by Nursing: [id number] 15:51:00 Test Item Value Reference Range Interpretation [...] yby method. Completed by Nursing: NOBASIC METABOLIC [id number] 15:51:00 Test Item Value Reference Range Interpretation [...] Completed by Nursing: NO- XR CHEST 1 [id number] 15:42:00 [facility] 1960 Sex: M Name: FAITH VANCE [facility] : 1960 Age/S: 60 / M [address] [address] [place] Unit #: [id number] Loc: [place] [address] Phys: Todd Jacobo MD Acct: [id number] Dis Date: Status: PRE ER PHONE #: [phone] Exam Date: 10/30/2020 1524 FAX #: Reason: chest pain EXAMS: CPT: [id number] XR CHEST 1 V 7 1045 Fluoro Time: DAP (Gy m2): Air Kerma (mGy): Single View Chest. Location: S17 Clinical Indication: 60-year-old with chest pain Comparison: August 10, 2020 Findings: An AP view of the chest was obtained. Prior sternotomy. There is mild enlargement of the heart. There is hazy opacification of the perihilar and lower lungs, new from prior exam. There may be small layering effusions. No pneumothorax. Aleft subclavian approach dual lead pacemaker is present. No acute osseous abnormality. Impression: Perihilar and lower lung hazy opacification may be congestive heart failure or bibasilar pneumonia. There may be small layering effusions. at 1542 Reported and signed by: Lopez Ruiz M.D. CC: Nika Martin MD; Todd Jacobo MD PAGE 1 Signed Report Name: FAITH VANCE : 1960 Age/S: 60 / M [address] [address] [place] Unit #: [id number] Loc: [place] [address] Phys: Todd Jacobo MD Acct: [id number] Dis Date: Status: PRE ER PHONE #: [phone] Exam Date: 10/30/2020 1524 FAX #: Reason: chest pain EXAMS: CPT: [id number] XR CHEST 1 V 38220 Fluoro Time: DAP (Gy m2): Air Kerma (mGy): <Continued>Technologist: Kim Andrews RT(R)(CT) Trnscb Date/Time: 10/30/2020 (154) tMATTR.RB24 Orig Print D/T: S: 10/30/2020 (8649) PAGE 2 Signed ReportCBC W/O [id number] 15:31:00 Test Item Value Reference Range Interpretation [...] 9.70 fL 7.0-9.6 H MPV) BASIC METABOLIC [id number] 21:42:00 Test Item Value Reference Range Interpretation [...] 9.6 mg/dL 8.0-10.5 N CA) HEPATIC FUNCTION [id number] 21:42:00 Test Item Value Reference Range Interpretation [...] 114 IUnit/L 20-125 N code = ALKP) [id number] 21:42:00 Test Item Value Reference Range Interpretation Comments LIPASE (test code = LIP) 70 U/L 13-57 H [id number] 21:42:00 Test Item Value Reference Range Interpretation [...] by method. UA RFLX MICR CULT IF [id number] 21:37:00 Test Item Value Reference Range Interpretation [...] INDWELLING CATH (CEDENO)Cath Status: Under 72 hoursPROTHROMBIN [id number] 21:35:00 Test Item Value Reference Range Interpretation [...] (to prevent recurrent infar ct). THROMBOPLASTIN TIME [id number] 21:35:00 Test Item Value Reference Range Interpretation Comments THROMBOPLASTIN TIME 41.7 Seconds 25.0-39.5 H Therape utic Range: PARTIAL (test code = 50.4 - 88.3 Seconds PTT) Effective 09/04/2018 CBC W/AUTO [id number] 21:29:00 Test Item Value Reference Range Interpretation [...] = MDIFF) - CT ABD PELVIS W/O [id number] 20:49:00 [facility] 1960 Sex: M Name: FAITH VANCE [facility] : 1960 Age/S: 60 / M [address] [place] [address] Blvd Unit #: [id number] Loc: [place] [address] Phys: Gisel Eugene CLASSIFIER Acct: [id number] Dis Date: Status: REG ER PHONE #: [phone] Exam Date: 08/23/20202024 FAX #: [phone] Reason: DIFFUSE ABDOMINAL PAIN EXAMS: CPT CODE: [id number] CT ABD PELVIS W/O CONT 16883 Clinical indication: Diffuse abdominal pain. Contrast - [...] 1 Signed Report (CONTINUED) Name: FAITH VANCE [facility] [place] : 1960 Age/S: 60 / M [address] [place] [address] Unit #: [id number] Loc: [place] [address] Phys: Gisel Eugene CLASSIFIER Acct: [id number] Dis Date: Status: REG ERPHONE #: [phone] Exam Date: 08/23/20202024 FAX #: [phone] Reason: DIFFUSE ABDOMINAL PAIN EXAMS: CPT CODE: [id number] CT ABD PELVIS W/O CONT 05066 <Continued> Peritoneum/Other: No extraluminal air. No extraluminal [...] Eugene Technologist:RT Fanta(R)(CT) CTDI: DLP: Trnscb Date/Time: 08/23 (2048) t.SDR.VB9 Orig Print D/T: S: 08/23/2020 (2051) PAGE 2 Signed Report BASIC METABOLIC [id number] 07:51:00 Test Item Value Reference Range Interpretation [...] >3 months. [Automated mess age] The system [employer] generated this result transmitted ref erence range: >=60. Th e reference range was not used to int erpret this result as normal/abnormal . 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 [facility] [id number] 11:58:00 Test Item Value Reference Range Interpretation Comments GLUBED (test code = 149 MG/DL 70-110 H Performe d by certified GLUBED) 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 [facility] BASIC METABOLIC [id number] 08:00:00 Test Item Value Reference Range Interpretation [...] 9.9 mg/dL 8.0-10.5 N CA) CBC W/AUTO [id number] 07:08:00 Test Item Value Reference Range Interpretation [...] DIFF REQUIRED (test code NO = MDIFF) [id number] 05:21:00 Test Item Value Reference Range Interpretation Comments GLUBED (test code = 150 MG/DL 70-110 H Performe d by certified GLUBED) 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 [facility] [id number] 21:13:00 Test Item Value Reference Range Interpretation Comments GLUBED (test code = 129 MG/DL 70-110 H Performe d by certified GLUBED) 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 [facility] [id number] 16:48:00 Test Item Value Reference Range Interpretation Comments GLUBED (test code = 116 MG/DL 70-110 H Performe d by certified GLUBED) 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 [facility] [id number] 12:18:00 Test Item Value Reference Range Interpretation Comments GLUBED (test code = 136 MG/DL 70-110 H Performe d by certified GLUBED) 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 [facility] [id number] 12:18:00 Test Item Value Reference Range Interpretation Comments GLUBED (test code = 151 MG/DL 70-110 H Performe d by certified GLUBED) 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 [facility] CBC W/AUTO [id number] 07:32:00 Test Item Value Reference Range Interpretation [...] (test code NO = MDIFF) BASIC METABOLIC [id number] 07:29:00 Test Item Value Reference Range Interpretation [...] code = 9.0 mg/dL 8.0-10.5 N CA) [id number] 05:19:00 Test Item Value Reference Range Interpretation Comments GLUBED (test code = 135 MG/DL 70-110 H Performe d by certified GLUBED) 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 [facility] [id number] 20:31:00 Test Item Value Reference Range Interpretation Comments GLUBED (test code = 189 MG/DL 70-110 H Performe d by certified GLUBED) 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 [facility] [id number] 17:41:00 Test Item Value Reference Range Interpretation Comments GLUBED (test code = 140 MG/DL 70-110 H Performe d by certified GLUBED) 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 [facility] - CTA CHEST FOR [id number] 13:48:00 [facility] 1960 Sex: M Name: FAITH VANCE [facility] : 1960 Age/S: 60 / M [address] [place] [address] Blvd Unit #: [id number] Loc: [place] [address] Phys: Gina Gonzalez NP Acct: [id number] Dis Date: Status: ADM INPHONE #: [phone] Exam Date: 08/12/2020911 FAX #: [phone] Reason: CP, elevated D-dimer EXAMS: CPT CODE: [id number] [place] [address] PROCEDURE: CTA CHEST INDICATION: CP, elevated D-dimer; [...] 1 Signed Report (CONTINUED) Name: FAITH VANCE [facility] : 1960 Age/S: 60 / M [address] [place] [address] Blvd Unit #: [id number] Loc: [facility] [place] [address] Phys: Gina Gonzalez NP Acct: [id number] Dis Date: Status: ADM IN PHONE #: [phone] Exam Date: 08/12/2020911 FAX #: [phone] Reason: CP, elevated D-dimer EXAMS: CPT CODE: [id number] [place] [address] <Continued> contrastenhancement. No acute abnormality demonstrated. MUSCULOSKELETAL: Healed median sternotomy. No acute skeletal abnormality. IMPRESSION: 1. Negative for pulmonary embolic disease within limitations noted. 2. Atherosclerosis. 3. Coronary arterial calcifications with prior coronary arterial stents and CABG. 4. Interstitial edema. No consolidation. 5. Small bilateral pleural effusions. SL: [id number] at 1348 Reported and signed by: Christiano Piña M.D. CC: Johnie Montanez MD; Gina Gonzalez NP; Nika Martin MD Technologist:Kate Camacoh, RT(R)(CT) CTDI: DLP: Trnscb Date/Time: 08/12/2020 (1348) tOBINNA Orig Print D/T: S: 08/12/2020 (4111) PAGE 2 Signed [id number] 11:38:00 Test Item Value Reference Range Interpretation Comments GLUBED (test code = 146 MG/DL 70-110 H Performe d by certified GLUBED) 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 [facility] CBC W/AUTO [id number] 09:17:00 Test Item Value Reference Range Interpretation [...] (test code NO = MDIFF) BASIC METABOLIC [id number] 08:28:00 Test Item Value Reference Range Interpretation [...] code = 8.3 mg/dL 8.0-10.5 N CA) [id number] 08:28:00 Test Item Value Reference Range Interpretation Comments PHOSPHOROUS (test code = PHOS) 3.6 MG/DL 2.5-4.9 N [id number] 08:28:00 Test Item Value Reference Range Interpretation Comments MAGNESIUM (test code = MAG) 1.94 mg/dL 1.80-2.40 N [id number] 07:16:00 Test Item Value Reference Range Interpretation Comments GLUBED (test code = 170 MG/DL 70-110 H Performe d by certified GLUBED) 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 [facility] [id number] 07:16:00 Test Item Value Reference Range Interpretation Comments GLUBED (test code = 137 MG/DL 70-110 H Performe d by certified GLUBED) 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 [facility] [id number] 17:01:00 Test Item Value Reference Range Interpretation Comments GLUBED (test code = 88 MG/DL 70-110 N Performe d by certified GLUBED) 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 [facility] VAN-[id number] 16:56:00 Test Item Value Reference Range Interpretation Comments ACT-ISTAT (test code 186 SEC 74-137 H Perform ed by certified = ACTI) 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 [facility] KKU-[id number] 15:03:00 Test Item Value Reference Range Interpretation Comments ACT-ISTAT (test code 235 SEC 74-137 H Perform ed by certified = ACTI) 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 [facility] [id number] 11:33:00 Test Item Value Reference Range Interpretation Comments GLUBED (test code = 97 MG/DL 70-110 N Performe d by certified GLUBED) 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 [facility] [id number] 06:54:00 Test Item Value Reference Range Interpretation Comments GLUBED (test code = 136 MG/DL 70-110 H Performe d by certified GLUBED) 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 [facility] BASIC METABOLIC [id number] 06:00:00 Test Item Value Reference Range Interpretation [...] COMMENTS: To be done morning of Heart [id number] 06:00:00 Test Item Value Reference Range Interpretation Comments PHOSPHOROUS (test code = PHOS) 4.1 MG/DL 2.5-4.9 N COMMENTS: To be done morning of Heart [id number] 06:00:00 Test Item Value Reference Range Interpretation Comments MAGNESIUM (test code = MAG) 1.74 mg/dL 1.80-2.40 L COMMENTS: To be done morning of Heart CathTHROMBOPLASTIN TIME [id number] 05:55:00 Test Item Value Reference Range Interpretation Comments THROMBOPLASTIN TIME 37.9 Seconds 25.0-39.5 N Therape utic Range: PARTIAL (test code = 50.4 - 88.3 Seconds PTT) Effective 09/04/2018 CBC W/AUTO [id number] 05:44:00 Test Item Value Reference Range Interpretation [...] COMMENTS: To be done morning of Heart [id number] 05:44:00 Test Item Value Reference Range Interpretation Comments GLUBED (test code = 92 MG/DL 70-110 N Performe d by certified GLUBED) 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 [facility] HGBA1C%2020-08-10 17:22:00 Test Item Value Reference Range Interpretation Comments HGBA1C% (test code = HGBA1C%) 6.6 %A1C 4.8-6.0 H [id number] 17:17:00 Test Item Value Reference Range Interpretation Comments GLUBED (test code = 118 MG/DL 70-110 H Performe d by certified 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 Results using different metho dologies should not be c omparedto one another as minh titative results may babak y by method. COVID 19 Asymptomatic IH [id number] 11:35:00 Test Item Value Reference Range Interpretation [...] y tests. COMMENTS: If not done this dacmedvriSFHFDNXS-[id number] 11:31:00 Test Item Value Reference Range Interpretation [...] titative results may babak y by method. [id number] 11:28:00 Test Item Value Reference Range Interpretation [...] to interpret this result as normal/abnormal . 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 [facility] B-TYPE NATRIURETIC [id number] 08:19:00 Test Item Value Reference Range Interpretation Comments B-TYPE NATRIURETIC PEPTIDE (test 508.0 PG/ML 0-100 H code = BNP) BASIC METABOLIC [id number] 08:11:00 Test Item Value Reference Range Interpretation [...] 9.1 mg/dL 8.0-10.5 N CA) HEPATIC FUNCTION [id number] 08:11:00 Test Item Value Reference Range Interpretation [...] 174 IUnit/L 20-125 H code = ALKP) [id number] 08:11:00 Test Item Value Reference Range Interpretation Comments MAGNESIUM (test code = MAG) 1.80 mg/dL 1.80-2.40 N [id number] 08:11:00 Test Item Value Reference Range Interpretation [...] may babak y by method. BASIC METABOLIC [id number] 08:09:00 Test Item Value Reference Range Interpretation [...] code = CA) mg/dL 8.0-10.5 HEPATIC FUNCTION [id number] 08:09:00 Test Item Value Reference Range Interpretation Comments TOTAL PROTEIN (test code = PROT) g/dL 6.4-8.2 ALBUMIN (test code = ALB) g/dL 3.4-5.0 BILIRUBIN TOTAL (test code = BILT) mg/dL 0.0-1.0 BILIRUBIN DIRECT (test code = BILD) MG/DL 0.0-0.30 SGOT/AST (test code = AST) IUnit/L 15-37 SGPT/ALT (test code = ALT) IUnit/L 30-65 ALKALINE PHOSPHATASE TOTAL (test IUnit/L 20-125 code = ALKP) [id number] 08:09:00 Test Item Value Reference Range Interpretation Comments MAGNESIUM (test code = MAG) mg/dL 1.80-2.40 [id number] 08:09:00 Test Item Value Reference Range Interpretation [...] results may babak y by method. PROTHROMBIN [id number] 08:06:00 Test Item Value Reference Range Interpretation [...] (to prevent recurrent infar ct). THROMBOPLASTIN TIME [id number] 08:06:00 Test Item Value Reference Range Interpretation Comments THROMBOPLASTIN TIME 44.5 Seconds 25.0-39.5 H Therape utic Range: PARTIAL (test code = 50.4 - 88.3 Seconds PTT) Effective 09/04/2018 CBC W/AUTO [id number] 07:58:00 Test Item Value Reference Range Interpretation [...] NO = MDIFF) - XR CHEST 1 [id number] 07:57:00 [facility] 1960 Sex: M FAX: Todd Jacobo MD [phone] [place]: St: REG FAX: Martínez Dash NP [phone] Name: FAITH VANCE [facility] : 1960 Age/S: 60/M [address] [place] [address] Blvd Unit #: [id number] Loc: [place] [address] Phys: Martínez Dash NP Acct: [id number] Dis Date: Status: REG ER PHONE #: [phone] Exam Date: 08/10/2020752 FAX #: [phone] Reason: Chest Pain EXAMS: CPT CODE: [id number] XR CHEST 1 V 94644 Chest single view 08/10/2020 HISTORY: Chest pain. Comparison is made to 05/21/2018 FINDINGS: Pacemaker and midline sternotomy wires are stable. The lungs are hypoinflated. No consolidation or pleural effusion is present. No vascular congestion or interstitial edema is present. Heart size is mildly enlarged. Aorta is unchanged. IMPRESSION: Hypoinflated lungs. No acute cardiopulmonary process. SL:[id number] at 0757 Reported and signed by: Khai Kruse M.D. CC: Todd Jacobo MD; Martínez Dash NP Technologist: Juliane Montemayor, RT(R) Trnscrd Date/Time/By: 08/10/2020 (0758) : By: [email or web address] Orig Print D/T: S: 08/10/2020 (8147) PAGE 1 Signed Report COMPREHENSIVE METABOLIC [id number] 18:02:00 Test Item Value Reference Range Interpretation [...] 50-136 H TOTAL (test code = ALKP) [id number] 18:02:00 Test Item Value Reference Range Interpretation Comments AMYLASE (test code = SERGIO) 82 Unit/L 25-115 N [id number] 18:02:00 Test Item Value Reference Range Interpretation Comments LIPASE (test code = LIP) 185 Unit/L 114-286 N COMPREHENSIVE METABOLIC [id number] 17:56:00 Test Item Value Reference Range Interpretation [...] TOTAL Unit/L 50-136 (test code = ALKP) [id number] 17:56:00 Test Item Value Reference Range Interpretation Comments AMYLASE (test code = SERGIO) Unit/L 25-115 [id number] 17:56:00 Test Item Value Reference Range Interpretation Comments LIPASE (test code = LIP) 185 Unit/L 114-286 N CBC W/AUTO [id number] 17:46:00 Test Item Value Reference Range Interpretation [...] CRITERIA MDIFF) - CT ABD PELVIS W/O [id number] 17:46:00 Name: FAITH VANCE [facility] : 1960 Age/S: 58 / M [address] [address] [place] Unit #: [id number] Loc: [place] [address] Phys: Nila Chester MD Acct: [id number] Dis Date: Status: REG ER PHONE #: [phone] Exam Date: 01/03/2019 3181 FAX #: Reason: llq EXAMS: CPT: [id number] CT ABD PELVIS W/O CONT 43333 Location of dictation: B2 CT abdomen and [...] 1 Signed Report (CONTINUED) Name: FAITH VANCE [facility] [place] : 1960 Age/S: 58 / M [address] [address] [place] Unit #: [id number] Loc: [place] [address] Phys: Nila Chester MD Acct: [id number] Dis Date: Status: REG ER PHONE #: [phone] Exam Date: 01/03/2019 8171 FAX #: Reason: llq EXAMS: CPT: [id number] CT ABD PELVIS W/O CONT 12376 <Continued> at 1746 Reported and signed by: Renuka Willett M.D. CC: Nila Chester MD Technologist:Tavon Jurado, RT(R)(CT)(MRI) CTDI: DLP: Trnscb Date/Time: 01/03/2019 (1746) [email or web address] Orig Print D/T: S: 01/03/2019 (9228) PAGE 2 Signed ReportBedside [id number] 11:47:00 Test Item Value Reference Range Interpretation Comments Bedside Glucose (test code = 84543-4) 155 70-120 H Meter ID: [id number] [place], TXCalcium [id number] 08:31:00 Test Item Value Reference Range Interpretation Comments Calcium Level (test code = 75047-7) 9.0 8.4-10.2 [facility] Vfuis7408-22-10 08:31:00 Test Item Value Reference Range Interpretation Comments Sodium Level (test code = 2951-2) 139 136-[address] [facility] [place], TXPotassium [id number] 08:31:00 Test Item Value Reference Range Interpretation Comments Potassium Level (test code = 2823-3) 4.0 3.5-5.[address] [facility] [place], TXChloride [id number] 08:31:00 Test Item Value Reference Range Interpretation Comments Chloride Level (test code = 2075-0) 106 98-[address] [facility] [place], TXCarbon Dioxide [id number] 08:31:00 Test Item Value Reference Range Interpretation Comments Carbon Dioxide Level (test code = 8-9) [facility] [place], TXAnion [id number] 08:31:00 Test Item Value Reference Range Interpretation Comments Anion Gap (test code = 37767-5) 12.0 8-[address] [facility] [place], TXBlood Urea [id number] 08:31:00 Test Item Value Reference Range Interpretation Comments Blood Urea Nitrogen (test code = 12-14 3094-0) [facility] [place], TXCreatinine2018-06-08 08:31:00 Test Item Value Reference Range Interpretation Comments Creatinine (test code = 2160-0) 0.72 0.72-1.[address] [facility] [place], TXBUN/Creatinine [id number] 08:31:00 Test Item Value Reference Range Interpretation Comments BUN/Creatinine Ratio (test code = 11-13 3097-3) [facility] [place], TXEstimat Glomerular Filtration [id number] 08:31:00 Test Item Value Reference Range Interpretation Comments Estimat Glomerular Filtration Rate 60- >60 (test code = 59278-1) Ranges were taken from the National Kidney Disease Education Program and the National Kidney Foundation literature.Reference ranges:60 or greater: Fqizyb18- 59 (for 3 consecutive months): Chronic kidneydisease 15 or less: Kidney failure [facility] [place], TXGlucose [id number] 08:31:00 Test Item Value Reference Range Interpretation Comments Glucose Level (test code = CPZ8464) 195 74-[address] [facility] [place], TXWhite Blood [id number] 08:12:00 Test Item Value Reference Range Interpretation Comments White Blood Count (test code = 6690-2) 6.06 4.8-10.[address] [facility] [place], TXRed Blood [id number] 08:12:00 Test Item Value Reference Range Interpretation Comments Red Blood Count (test code = 789-8) 4.22 4.3-5.[address] [facility] [place], TXHemoglobin2018-06-08 08:12:00 Test Item Value Reference Range Interpretation Comments Hemoglobin (test code = 16274-4) 12.5 14.0-18.[address] [facility] [place], TXHematocrit2018-06-08 08:12:00 Test Item Value Reference Range Interpretation Comments Hematocrit (test code = 4544-3) 36.2 38.2-49.[address] [facility] [place], TXMean Corpuscular [id number] 08:12:00 Test Item Value Reference Range Interpretation Comments Mean Corpuscular Volume (test code = 85.8 81-99 787-2) [facility] [place], TXMean Corpuscular Dkqiewamro5577-22-76 08:12:00 Test Item Value Reference Range Interpretation Comments Mean Corpuscular Hemoglobin (test code 29.6 28-32 = 785-6) [facility] [place], TXMean Corpuscular Hemoglobin Znhzrey3976-00-09 08:12:00 Test Item Value Reference Range Interpretation Comments Mean Corpuscular Hemoglobin Concent 34.5 31-35 (test code = 786-4) [facility] [place], TXRed Cell Distribution [id number] 08:12:00 Test Item Value Reference Range Interpretation Comments Red Cell Distribution Width (test code 14.2 11.7-14.4 = 07080-7) [facility] [place], TXPlatelet [id number] 08:12:00 Test Item Value Reference Range Interpretation Comments Platelet Count (test code = 777-3) 263 140-[address] [facility] [place], TXNeutrophils (%) (Auto)2017-10-27 08:12:00 Test Item Value Reference Range Interpretation Comments Neutrophils (%) (Auto) (test code = 51.2 38.7-80.0 61015-7) [facility] [place], TXLymphocytes (%) (Auto)2017-10-27 08:12:00 Test Item Value Reference Range Interpretation Comments Lymphocytes (%) (Auto) (test code = 33.7 18.0-39.1 736-9) [facility] [place], TXMonocytes (%) (Auto)2017-10-27 08:12:00 Test Item Value Reference Range Interpretation Comments Monocytes (%) (Auto) (test code = 9.1 4.4-11.3 5905-5) [facility] [place], TXEosinophils (%) (Auto)2017-10-27 08:12:00 Test Item Value Reference Range Interpretation Comments Eosinophils (%) (Auto) (test code = 4.8 0.0-6.0 713-8) [facility] [place], TXBasophils (%) (Auto)2017-10-27 08:12:00 Test Item Value Reference Range Interpretation Comments Basophils (%) (Auto) (test code = 0.7 0.0-1.0 706-2) [facility] [place], TXIM GRANULOCYTES %2017-10-27 08:12:00 Test Item Value Reference Range Interpretation Comments IM GRANULOCYTES % (test code = IM 0.5 0.0-1.0 GRANULOCYTES %) [facility] [place], TXNeutrophils # (Auto)2017-10-27 08:12:00 Test Item Value Reference Range Interpretation Comments Neutrophils # (Auto) (test code = 3.1 2.1-6.9 751-8) [facility] [place], TXLymphocytes # (Auto)2017-10-27 08:12:00 Test Item Value Reference Range Interpretation Comments Lymphocytes # (Auto) (test code = 2.0 1.0-3.2 14122-7) [facility] [place], TXMonocytes # (Auto)2017-10-27 08:12:00 Test Item Value Reference Range Interpretation Comments Monocytes # (Auto) (test code = 742-7) 0.6 0.2-0.[address] [facility] [place], TXEosinophils # (Auto)2017-10-27 08:12:00 Test Item Value Reference Range Interpretation Comments Eosinophils # (Auto) (test code = 0.3 0.0-0.4 711-2) [facility] [place], TXBasophils # (Auto)2017-10-27 08:12:00 Test Item Value Reference Range Interpretation Comments Basophils # (Auto) (test code = 704-7) 0.0 0.0-0.[address] [facility] [place], TXAbsolute Immature Granulocyte ([id number] 08:12:00 Test Item Value Reference Range Interpretation Comments Absolute Immature Granulocyte (auto 0.03 0-0.1 (test code = Absolute Immature Granulocyte (auto) [facility] [place], TXCreatine Kinase [id number] 15:14:00 Test Item Value Reference Range Interpretation Comments Creatine Kinase MB (test code = 3.90 0-5.0 27365-7) [facility] [place], TXTroponin [id number] 15:14:00 Test Item Value Reference Range Interpretation Comments Troponin I (test code = ZXH2017) 0.054 0-0.[address] [facility] [place], TXCreatine Wwcnly8505-24-18 15:07:00 Test Item Value Reference Range Interpretation Comments Creatine Kinase (test code = 2157-6) 297 30-[address] [facility] [place], TXHemoglobin A1c Mzvdtxx7316-80-01 08:04:00 Test Item Value Reference Range Interpretation Comments Hemoglobin A1c Percent (test code = 12.6 4.0-7.0 H Hemoglobin A1c Percent) [facility] [place], TXTriglycerides [id number] 06:57:00 Test Item Value Reference Range Interpretation Comments Triglycerides Level (test code = 200 0-149 H 2571-8) [facility] [place], TXCholesterol Busqg9349-73-94 06:57:00 Test Item Value Reference Range Interpretation Comments Cholesterol Level (test code = 2093-3) 239 0-199 H Less than 200 mg/dL Low Mwug375 - 239 mg/dL Borderline Zrpw801 mg/dl and greater High RiskCH[facility] [place], TXLDL Ecwiivjsrug2592-80-36 06:57:00 Test Item Value Reference Range Interpretation Comments LDL Cholesterol (test code = 2089-1) 164 60-[address] [facility] [place], TXHDL Bmskrddxkbb9782-14-26 06:57:00 Test Item Value Reference Range Interpretation Comments HDL Cholesterol (test code = 2085-9) 35 40-[address] [facility] [place], TXCholesterol/HDL Iyaif2003-78-07 06:57:00 Test Item Value Reference Range Interpretation Comments Cholesterol/HDL Ratio (test code = 6.8 3.9-4.7 H 9830-1) [facility] [place], TXUrine Opiates [id number] 16:18:00 Test Item Value Reference Range Interpretation Comments Urine Opiates Screen (test code = NEGATIVE NEGATIVE 36622-5) [facility] [place], TXUrine Barbiturates Oespdj1705-14-33 16:18:00 Test Item Value Reference Range Interpretation Comments Urine Barbiturates Screen (test code NEGATIVE NEGATIVE = 004347270) [facility] [place], TXUrine Phencyclidine Kosjkw0297-00-74 16:18:00 Test Item Value Reference Range Interpretation Comments Urine Phencyclidine Screen (test NEGATIVE NEGATIVE code = 18969-6) [facility] [place], TXUrine Amphetamines [id number] 16:18:00 Test Item Value Reference Range Interpretation Comments Urine Amphetamines Screen (test code NEGATIVE NEGATIVE = 72096-5) [facility] [place], TXUrine Methamphetamines [id number] 16:18:00 Test Item Value Reference Range Interpretation Comments Urine Methamphetamines Screen (test NEGATIVE NEGATIVE code = Urine Methamphetamines Screen) [facility] [place], TXUrine Benzodiazepines [id number] 16:18:00 Test Item Value Reference Range Interpretation Comments Urine Benzodiazepines Screen (test NEGATIVE NEGATIVE code = 12389-4) [facility] [place], TXUrine Cocaine Chhsyx7332-28-40 16:18:00 Test Item Value Reference Range Interpretation Comments Urine Cocaine Screen (test code = NEGATIVE NEGATIVE 3398-5) [facility] [place], TXUrine Cannabinoids [id number] 16:18:00 Test Item Value Reference Range Interpretation Comments Urine Cannabinoids Screen (test code NEGATIVE NEGATIVE = 10121-6) THESE RESULTS ARE FOR MEDICAL TREATMENT ONLYTHIS REPORT CONTAINS UNCONFIRMED SCREENING RESULTS*POSITIVE RESULTS WILL BE CONFIRMED BY REFERENCE LAB UPON REQUEST CUT-OFFDRUG CLASS CONCENTRATION ng/mLAmphetamines 1000Methamphetamines 1000Cocaine 300Opiate 300Phencyclidine 25Cannabinoid 50Barbiturates 300Benzodiazepine 300Methadone [address] [place], TXUrine Methadone [id number] 16:18:00 Test Item Value Reference Range Interpretation Comments Urine Methadone Screen (test code = NEGATIVE NEGATIVE 06276-9) THESE RESULTS ARE FOR MEDICAL TREATMENT ONLYTHIS REPORT CONTAINS UNCONFIRMED SCREENING RESULTS*POSITIVE RESULTS WILL BE CONFIRMED BY REFERENCE LAB UPON REQUEST CUT-OFFDRUG CLASS CONCENTRATION ng/mLAmphetamines 1000Methamphetamines 1000Cocaine Metabolite 300Opiate 300Phencyclidine 01Jsbnrnarxau18Mljahozspypx 300Benzodiazepine [address] [place], TXProthrombin [id number] 14:13:00 Test Item Value Reference Range Interpretation Comments Prothrombin Time (test code = 5902-2) 13.6 11.9-14.[address] [facility] [place], TXProthromb Time International [id number] 14:13:00 Test Item Value Reference Range Interpretation Comments Prothromb Time International Ratio 1.13 (test code = 6301-6) Oral Anticoagulant Therapy INR Values:1. Low Intensity Therapy 1.5 - 2.02. Moderate Intensity Therapy 2.0 - 3.03. High Intensity Therapy(1) 2.5 - 3.54. High Intensity Therapy(2) 3.0 - 4.05. Panic ValueINR > 5.0[facility] [place], TXActivated Partial Thromboplast [id number] 14:13:00 Test Item Value Reference Range Interpretation Comments Activated Partial Thromboplast Time 27.6 23.8-35.5 (test code = 27699-4) [facility] [place], TXTotal Xiprddafw3714-75-74 14:10:00 Test Item Value Reference Range Interpretation Comments Total Bilirubin (test code = 1975-2) 0.6 0.2-1.[address] [facility] [place], TXAspartate Amino Transf (AST/SGOT)2017-10-23 14:10:00 Test Item Value Reference Range Interpretation Comments Aspartate Amino Transf (AST/SGOT) (test 36 5-34 H code = Aspartate Amino Transf (AST/SGOT)) [facility] [place] Aminotransferase (ALT/SGPT)2017-10-23 14:10:00 Test Item Value Reference Range Interpretation Comments Alanine Aminotransferase (ALT/SGPT) 34 0-55 (test code = 1742-6) [facility] [place], [place]Total [id number] 14:10:00 Test Item Value Reference Range Interpretation Comments Total Protein (test code = 2885-2) 7.3 6.5-8.[address] [facility] [place], [place]Albumin2018-06-04 14:10:00 Test Item Value Reference Range Interpretation Comments Albumin (test code = 1751-7) 4.0 3.5-5.[address] [facility] [place], [place]Globulin2018-06-04 14:10:00 Test Item Value Reference Range Interpretation Comments Globulin (test code = 76861-8) 3.3 2.3-3.[address] [facility] [place], [place]Albumin/Globulin [id number] 14:10:00 Test Item Value Reference Range Interpretation Comments Albumin/Globulin Ratio (test code = 1.2 0.8-2.0 1759-0) [facility] [place], TXAlkaline Hrbreaycdya4855-19-75 14:10:00 Test Item Value Reference Range Interpretation Comments Alkaline Phosphatase (test code = 109 40-150 6768-6) [facility] [place], TXB-Type Natriuretic [id number] 14:10:00 Test Item Value Reference Range Interpretation Comments B-Type Natriuretic Peptide (test code = 92.8 0-100 96906-0) [facility] [place], TXAmylase Yusjo0475-72-83 14:10:00 Test Item Value Reference Range Interpretation Comments Amylase Level (test code = 1798-8) 126 25-[address] [facility] [place], TXLipase2018-06-04 14:10:00 Test Item Value Reference Range Interpretation Comments Lipase (test code = 3040-3) 98 8-[address] [facility] [place], TXD-Dimer Quantitative (PE/DVT)2017-10-23 14:02:00 Test Item Value Reference Range Interpretation Comments D-Dimer Quantitative (PE/DVT) (test 0.49 0.00-0.45 H code = 08989-0) [facility] [place], TXDirect [id number] 13:47:00 Test Item Value Reference Range Interpretation Comments Direct Bilirubin (test code = 59271-1) 0.2 0.0-5.[address] [facility] [place], TXMagnesium [id number] 06:52:00 Test Item Value Reference Range Interpretation Comments Magnesium Level (test code = 90972-2) 1.5 1.3-2.[address] [facility] [place], TXUrine [id number] 05:09:00 Test Item Value Reference Range Interpretation Comments Urine WBC (test code = 5821-4) NONE 0-[address] [facility] [place], TXUrine [id number] 05:09:00 Test Item Value Reference Range Interpretation Comments Urine RBC (test code = 30929-5) NONE 0-[address] [facility] [place], TXUrine Pomxoiqe7330-75-28 05:09:00 Test Item Value Reference Range Interpretation Comments Urine Bacteria (test code = 78046-1) NONE NONE [facility] [place], TXUrine Epithelial [id number] 05:09:00 Test Item Value Reference Range Interpretation Comments Urine Epithelial Cells (test code = NONE NONE 36490-5) [facility] [place], TXUrine Mjuwy7647-00-07 04:46:00 Test Item Value Reference Range Interpretation Comments Urine Color (test code = 5778-6) YELLOW YELLOW [facility] [place], TXUrine Cppmsfw1201-33-59 04:46:00 Test Item Value Reference Range Interpretation Comments Urine Clarity (test code = 31148-5) CLEAR CLEAR [facility] [place], TXUrine Specific [id number] 04:46:00 Test Item Value Reference Range Interpretation Comments Urine Specific [place] (test code = 1.010 1.010-1.025 5811-5) [facility] [place], TXUrine [id number] 04:46:00 Test Item Value Reference Range Interpretation Comments Urine pH (test code = 41723-1) 8 5-[address] [facility] [place], TXUrine Leukocyte Nrujbfsb1367-13-45 04:46:00 Test Item Value Reference Range Interpretation Comments Urine Leukocyte Esterase (test code NEGATIVE NEGATIVE = 5799-2) [facility] [place], TXUrine [id number] 04:46:00 Test Item Value Reference Range Interpretation Comments Urine Nitrite (test code = 12549-7) NEGATIVE NEGATIVE [facility] [place], TXUrine [id number] 04:46:00 Test Item Value Reference Range Interpretation Comments Urine Protein (test code = 5804-0) NEGATIVE NEGATIVE [facility] [place], TXUrine Glucose (UA)2017-03-05 04:46:00 Test Item Value Reference Range Interpretation Comments Urine Glucose (UA) (test code = NEGATIVE NEGATIVE 2349-9) [facility] [place], TXUrine [id number] 04:46:00 Test Item Value Reference Range Interpretation Comments Urine Ketones (test code = 91882-7) NEGATIVE NEGATIVE [facility] [place], TXUrine Lkuqcctarjjr7361-82-28 04:46:00 Test Item Value Reference Range Interpretation Comments Urine Urobilinogen (test code = 0.2 0.2-1 61770-6) [facility] [place], TXUrine Dopgkoswq1942-68-16 04:46:00 Test Item Value Reference Range Interpretation Comments Urine Bilirubin (test code = 1978-6) NEGATIVE NEGATIVE [facility] [place], TXUrine Jrjrt2541-42-81 04:46:00 Test Item Value Reference Range Interpretation Comments Urine Blood (test code = 75122-9) 2+ NEGATIVE H [facility] [place], TXCTA BRAIN [facility] [address] [place] [address] PatientName: FAITH VANCE MR #: [id number] : 1960 Age/Sex: 57/M Req #: [id number] Adm Physician: ALEXIS COX MD Ordered by: ALEXIS COX MD Report #: [id number] Location: [facility] Room/Bed: [place] [address] Procedure: [id number] CT/CTA BRAIN Exam Date: 10/24/17 Exam Time: [...] PM Dictated By: ANA MARIA ARTEAGA MD [id number] Transcribed By: ANDREE on 10/24/17 1638 COPY TO: ALEXIS COX MDCT BRAIN [place] [address] PatientName: FAIHT VANCE MR #: [id number] : 1960 Age/Sex: 57/M Req #: [id number] Adm Physician: Ordered by: KHAI WAHL MD Report #: [id number] Location: Room/Bed: _ Procedure: [id number] CT/CT BRAIN WO Exam Date: 10/23/17 Exam [...] on 10/23/171642 [facility] [place] [address] PatientName: RAJIV,FAITH MR #: [id number] : 1960 Age/Sex: 57/M Req #: [id number] Adm Physician: Ordered by: KHAI WAHL MD Report #: [id number] Location: ER Room/Bed: __ Procedure: [id number] CT/CTA CHEST Exam Date: 10/23/17 Exam Time: [...] reviewed and is below limits set by [facility]). FINDINGS: Lines and Tubes: [...] 10/23/17 162 COPY TO: KHAI WAHL V [facility] SINGLE (PORTABLE) [place] [address] PatientName: FAITH VANCE MR #: [id number] : 1960 Age/Sex: 57/M Req #: [id number] Adm Physician: Ordered by: KHAI WAHL MD Report #: [id number] Location: ER Room/Bed: _ Procedure: [id number] DX/CHEST SINGLE (PORTABLE) Exam Date: 10/23/17 Exam [...] TO: KHAI WAHL V MDCT BRAIN WO [place] [address] PatientName: FAITH VANCE MR #: [id number] : 1960 Age/Sex: 56/M Req #: [id number] Adm Physician: Ordered by: JACQUELYN MONTES DE OCA MD Report #: [id number] Location: ER Room/Bed: Procedure: [id number] CT/CT BRAIN WO Exam Date: Exam Time: [...] MONTES DE OCA MDCT CERVICAL SPINE [place] [address] PatientName: FAITH VANCE MR #: [id number] : 1960 Age/Sex: 56/M Req #: [id number] Adm Physician: Ordered by: JACQUELYN MONTES DE OCA MD Report #: [id number] Location: ER Room/Bed: Procedure: [id number] CT/CT CERVICAL SPINE WO Exam Date: Exam [...] 6 COPY TO: JACQUELYN MONTES DE OCA [facility] SINGLE (PORTABLE) [place] [address] PatientName: FAITH VANCE MR #: [id number] : 1960 Age/Sex: 56/M Req #: [id number] Adm Physician: Ordered by: JACQUELYN MONTES DE OCA MD Report #: [id number] Location: ER Room/Bed: Procedure: [id number] DX/CHEST SINGLE (PORTABLE) Exam Date: 04/04/17 Exam [...] OCA MDHIP RIGHT 2-3 VW (+/- PELVIS) [place] [address] PatientName: FAITH VANCE MR #: [id number] : 1960 Age/Sex: 56/M Req #: [id number] Adm Physician: Ordered by: JACQUELYN MONTES DE OCA MD Report #: [id number] Location: ER Room/Bed: Procedure: [id number] DX/HIP RIGHT 2-3 VW (+/- PELVIS) Exam [...] DE OCA MDSP LUMBAR, COMPLETE MIN 4VW [place] [address] PatientName: FAITH VANCE MR #: [id number] : 1960 Age/Sex: 56/M Req #: [id number] Adm Physician: Ordered by: JACQUELYN MONTES DE OCA MD Report #: [id number] Location: ER Room/Bed: Procedure: [id number] DX/SP LUMBAR, COMPLETE MIN 4VW Exam Date: 04/04/17 Exam Time: 0108 REPORT STATUS: Signed SP LUMBAR, COMPLETE MIN 4VW Comparison: CT 08/10/2016 Clinical history: Status post fall with lowerback pain Findings: Postoperative changes from posterior fusion from left L4 vertebral body to L5-L8bygovi and posterior decompression. No evidence of hardware [...] 04/04/17227 COPY TO: JACQUELYN MONTES [place] [address] PatientName: FAITH VANCE MR #: [id number] : 1960 Age/Sex: 56/M Req #: [id number] Adm Physician: NICHELLE PALACIOS MD Ordered by: SCOTT AMIN MD Report #: [id number] Location: [facility] Room/Bed: [address] Procedure: [id number] US/US ABDOMEN COMPLETE Exam Date: 03/08/17 Exam [...] on 03/08/17 1040 COPY TO: SCOTT AMIN [facility] (PORTABLE) [place] [address] PatientName: FAITH VANCE MR #: [id number] : 1960 Age/Sex: 56/M Req #: [id number] Adm Physician: Ordered by: JACQUELYN MONTES DE OCA MD Report #: [id number] Location: ER Room/Bed: Procedure: [id number] DX/CHEST SINGLE (PORTABLE) Exam Date: 03/05/17 Exam [...]
[2022-02-04 09:42] LABS: Absolute Lymphocytes (CBC) 1.8 K/uL (0.7-4.9); Hematocrit 33.7 % (39.6-49.0); Lymphocytes % 22.1 % (15.3-44.8); MCV 91.2 fL (80-100); MPV 7.5 fL (7.6-11.3); RBC Red Blood Cell Count 3.69 M/uL (4.33-5.43)
[2022-02-04 09:45] LABS: Protime INR 1.2
--- NOTE | 2022-02-04 10:02 | RAD REPORT ---
EXAM DESCRIPTION: RAD - Chest Single View - 02/04/2022 9:54 am CLINICAL HISTORY: CHEST PAIN COMPARISON: Portable 02/02/2022 TECHNIQUE: AP portable chest image was obtained 02/04/2022 9:54 am . FINDINGS: Lung volumes are low. Interstitial pattern matches comparison. No new mass or consolidatio n. No new or progressive failure or volume overload. Sternotomy wires and pacemaker remain in place. Heart and vasculature are normal. No measurable pleural effusion and no pneumothorax. No acute bony a bnormality seen. No acute aortic findings suspected. IMPRESSION: Limited portable study stable from 02/02/2022.
[2022-02-04] MEDS ORDERED: KETOROLAC 30 MG/ML INJ ONE (10:53)
[2022-02-04] MEDS ORDERED: HYDROCODONE/APAP 10/325 TAB ONE (12:15)
--- NOTE | 2022-02-04 12:18 | EDPHYS ---
Physician Documentation [facility] Name: Ernie Rooney Age: 61 yrs Sex: Male : 1960 Arrival Date: 02/04/2022 Time: : Bed 30 Private MD: ED Physician Angel Merlos HPI: 02/04 12:09 This 61 yrs old Male presents to ER via EMS with complaints of Chest Pain. kdr 12:09 The patient or guardian reports chest pain that is located primarily in the anterior kdr chest wall, left. Onset: suddenly, just prior to arrival. The patient presents here with left lateral chest pain rating into his shoulder. He has been seen here numerous times for the same issue. He was most recently catheterized on January 20. In discussion with Dr. Royal, his his catheter results were negative. He continues to have recurrent chest pain with normal cardiac enzymes. Normal chest x-ray. I discussed this case with the nursing secretary of the ED as well as the medical affairs leader. I will also discuss it with the [employer] SCIENTIST/Dr. Liu. The above-mentioned will attempt to review this case and come up with a management plan going forward. I have also spoken with the pain management physician who has agreed to see the patient in consult early this next week. Patient was called today for an appointment.. The pain radiates to the left arm. Onset: The symptoms/episode began/occurred just prior to arrival. 17:39 Associated signs and symptoms: The patient has no apparent associated signs or kdr symptoms. The chest pain is described as sharp, stabbing. Duration: The patient or guardian reports multiple episodes, that are intermittent, that wax and wane, with no pattern. Modifying factors: The symptoms are alleviated by nothing. the symptoms are aggravated by nothing. Severity of pain: At its worst the pain was severe in the emergency department the pain is unchanged. Patient is returning after multiple presentations with the same complaint. He these evaluations, so tomorrow his cardiac enzymes changed were elevated. Further he is a paced rhythm and there is not usually any change in the EKG as well.. Historical: - Allergies: 09:28 NKA; bp - Home Meds: :28 albuterol sulfate 90 mcg/actuation Inhl aepb [Active]; apixaban 5 mg Oral tab 1 tab 2 bp times per day [Active]; aspirin 81 mg Oral chew [Active]; atorvastatin 40 mg Oral tab 1 tab once daily [Active]; cyclobenzaprine 10 mg Oral tab 1 tab as needed [Active]; fenofibrate micronized 200 mg Oral Tb24 1 cap once daily [Active]; furosemide 40 mg Oral tab 1 tab once daily [Active]; gabapentin 800 mg Oral tab 1 tab 3 times per day [Active]; glipizide 10 mg Oral tab 1 tab once daily [Active]; Humulin N Pen 100 unit/mL (3 mL) Sub-Q inpn [Active]; levothyroxine 50 mcg Tb24 1 cap once daily [Active]; lisinopril 2.5 mg Oral tab 1 tab once daily [Active]; metformin 500 mg Oral tab 1 tab daily [Active]; omeprazole 20 mg Oral cpDR 1 cap once daily [Active]; spironolactone 25 mg Oral tab 1 tab once daily [Active]; tamsulosin 0.4 mg Oral Tb24 1 cap once daily [Active]; venlafaxine 75 mg Oral tab 1 tab 2 times per day [Active]; - PMHx: 09:28 Arthritis; Back pain; CVA; Depression; Diabetes - NIDDM; Fibromyalgia; GERD; bp Hyperlipidemia; Hypertensive disorder; Hypothyroidism; Left sided weakness from previous CVA; Myocardial infarction; Pacemaker; - PSHx: 09:28 bilat BKA's; bypass; CABG; bp - Immunization history:: Adult Immunizations up to date. - Social history:: Smoking status: Patient reports the use of cigarette tobacco products, unknown amount. ROS: 17:39 Constitutional: Negative for fever, chills, and weight loss, Eyes: Negative for injury, kdr pain, redness, and discharge, ENT: Negative for injury, pain, and discharge, Neck: Negative for injury, pain, and swelling, Respiratory: Negative for shortness of breath, cough, wheezing, and pleuritic chest pain, Abdomen/GI: Negative for abdominal pain, nausea, vomiting, diarrhea, and constipation, Back: Negative for injury and pain, : Negative for injury, bleeding, discharge, and swelling, MS/Extremity: Negative for injury and deformity, Skin: Negative for injury, rash, and discoloration, Neuro: Negative for headache, weakness, numbness, tingling, and seizure activity. Psych: Negative for depression, anxiety, suicide ideation, homicidal ideation, and hallucinations, Allergy/Immunology: Negative for hives, rash, and allergies, Endocrine: Negative for neck swelling, polydipsia, polyuria, polyphagia, and marked weight changes, Hematologic/Lymphatic: Negative for swollen nodes, abnormal bleeding, and unusual bruising. 17:39 Cardiovascular: Positive for chest pain, Negative for edema, orthopnea, palpitations, paroxysmal nocturnal dyspnea. Exam: 12:00 ECG was reviewed by the Attending Physician. kdr 17:39 Constitutional: This is a well developed, well nourished patient who is awake, alert, kdr and in no acute distress. Head/Face: Normocephalic, atraumatic. Eyes: Pupils equal round and reactive to light, extra-ocular motions intact. Lids and lashes normal. Conjunctiva and sclera are non-icteric and not injected. Cornea within normal limits. Periorbital areas with no swelling, redness, or edema. Neck: Trachea midline, no thyromegaly or masses palpated, and no cervical lymphadenopathy. Supple, full range of motion without nuchal rigidity, or vertebral point tenderness. No Meningismus. Chest/axilla: Normal chest wall appearance and motion. Nontender with no deformity. No lesions are appreciated. Cardiovascular: Regular rate and rhythm with a normal S1 and S2. No gallops, murmurs, or rubs. Normal PMI, no JVD. No pulse deficits. Respiratory: Lungs have equal breath sounds bilaterally, clear to auscultation and percussion. No rales, rhonchi or wheezes noted. No increased work of breathing, no retractions or nasal flaring. Abdomen/GI: Soft, non-tender, with normal bowel sounds. No distension or tympany. No guarding or rebound. No evidence of tenderness throughout. Back: No spinal tenderness. No costovertebral tenderness. Full range of motion. Skin: Warm, dry with normal turgor. Normal color with no rashes, no lesions, and no evidence of cellulitis. Neuro: Awake and alert, GCS 15, oriented to person, place, time, and situation. Cranial nerves II-XII grossly intact. Motor strength 5/5 in all extremities. Sensory grossly intact. Cerebellar exam normal. Normal gait. Psych: Awake, alert, with orientation to person, place and time. Behavior, mood, and affect are within normal limits. 17:39 Musculoskeletal/extremity: Bilateral BKA. Vital Signs: 09:26 BP 153 / 86; Pulse 88; Resp 20; Temp 98; Pulse Ox 100% ; bp 10:01 BP 150 / 81; Pulse 86; Resp 17; Pulse Ox 100% ; jh6 11:19 BP 146 / 73; Pulse 79; Resp 16; Pulse Ox 100% ; bp 12:17 BP 151 / 85; Pulse 77; Resp 18; Pulse Ox 98% on R/A; jh6 13:12 BP 140 / 75; Pulse 82; Resp 16; Pulse Ox 100% ; bp MDM: 11:03 Data reviewed: vital signs, nurses notes. ED course: I discussed the case with Dr. renny Royal who reviewed the recent cardiology notes and investigations. He confirmed that the January 20 catheterization did not reveal any significant pathology. All his vessels looked good. The patient continues to present every 2 to 3 days with left chest and arm pain. Today his cardiac enzymes are negative. I have discussed the case with the medical affairs leader of the ED and the nursing secretary. I have also consulted case management for assistance. In addition I spoke with Dr. Oscar, pain management, who said the patient could call today to get an appointment for early next week. Patient appears stable in the ED, he is not diaphoretic he is not in any obvious stress distress beyond his report of chest and left shoulder pain. 12:17 Patient medically screened. [facility] 02/04 09:27 Order name: Basic Metabolic Panel; Complete Time: 10:58 02/04 09:27 Order name: CBC with Diff; Complete Time: 10:58 02/04 09:27 Order name: PT-INR; Complete Time: 10:58 02/04 09:27 Order name: Troponin HS; Complete Time: 10:58 02/04 09:27 Order name: XRAY Chest (1 view); Complete Time: 10:58 02/04 09:27 Order name: EKG; Complete Time: : 02/04 09:27 Order name: Cardiac monitoring; Complete Time: 09:40 02/04 09:27 Order name: EKG - Nurse/Tech; Complete Time: 09:40 02/04 09:27 Order name: IV Saline Lock; Complete Time: 09:39 02/04 09:27 Order name: Labs collected and sent; Complete Time: 09:49 02/04 09:27 Order name: O2 Per Protocol; Complete Time: 09:40 02/04 10:02 Order name: Social Service Consult [facility] 02/04 09:27 Order name: O2 Sat Monitoring; Complete Time: 09:40 02/04 09:30 Order name: Misc. Order: Analytical Statistician consult; Complete Time: 10:01 kdr EC:00 Rate is 88 beats/min. Rhythm is regular, Paced with No ectopy. kdr Administered Medications: 10:50 Drug: Ketorolac 15 mg Route: IVP; Site: left hand; [facility] 11:20 Follow up: Response: No adverse reaction bp 12:15 Follow up: Response: No change in condition [facility] 12:09 Not Given (Patient Refused; PER PT, I ONLY WANT A SHOTt): [place] bp (HYDROcodone-acetaminophen) 10 mg-325 mg 1 tabs PO once Disposition Summary: 02/04/22 12:17 Discharge Ordered Location: Home kdr Problem: new kdr Symptoms: have improved kdr Condition: Stable kdr Diagnosis - Chest pain, unspecified kdr - Chest wall pain kdr Followup: kdr - With: Private Physician - When: 2 - 3 days - Reason: If symptoms return, Further diagnostic work-up, Recheck today's complaints, Continuance of care, Re-evaluation by your physician Followup: kdr - With: Kwesi Muro DO - When: 48 Hours - Reason: If symptoms return, Further diagnostic work-up, Recheck today's complaints, Continuance of care, Re-evaluation by your physician Discharge Instructions: - Discharge Summary Sheet kdr - Chest Wall Pain, Stft-ms-Jvih kdr - Nonspecific Chest Pain, Adult, Nchk-gi-Xkdy kdr Forms: - Medication Reconciliation Form kdr - Thank You Letter kdr Signatures: Dispatcher [employer] [facility] Angel Merlos MD MD kdr Polly Leal RN RN Khai Hernandez RN RN bp Gina Muniz RN RN 6
--- NOTE | 2022-02-04 12:18 | ER ---
Nurse's Notes [facility] Name: Ernie Rooney Age: 61 yrs Sex: Male : 1960 Arrival Date: 02/04/2022 Time: : Bed 30 Private MD: Diagnosis: Chest pain, unspecified;Chest wall pain Presentation: 02/04 09:26 Chief complaint: EMS states: LEFT ARM PAIN. Coronavirus screen: At this time, the bp client does not indicate any symptoms associated with coronavirus-19. Ebola Screen: No symptoms or risks identified at this time. Initial Sepsis Screen: Does the patient meet any 2 criteria? No. Patient's initial sepsis screen is negative. Does the patient have a suspected source of infection? No. Patient's initial sepsis screen is negative. Risk Assessment: Do you want to hurt yourself or someone else? Patient reports no desire to harm self or others. Onset of symptoms is unknown. Care prior to arrival: Medication(s) given: ASA, 81 mg, x 4, IV initiated. 22 GA, in the left hand. 09:26 Method Of Arrival: EMS: [facility] bp 09:26 Acuity: TONE 3 bp Triage Assessment: :28 General: Appears in no apparent distress. uncomfortable, Behavior is cooperative, bp appropriate for age, anxious. Pain: Complains of pain in left arm. EENT: No deficits noted. Neuro: Level of Consciousness is awake, alert, obeys commands, Oriented to Appropriate for age. Cardiovascular: No deficits noted. Respiratory: No deficits noted. GI: No signs and/or symptoms were reported involving the gastrointestinal system. : No signs and/or symptoms were reported regarding the genitourinary system. Derm: No deficits noted. Musculoskeletal: No deficits noted. Historical: - Allergies: 09: NKA; bp - Home Meds: : albuterol sulfate 90 mcg/actuation Inhl aepb [Active]; apixaban 5 mg Oral tab 1 tab 2 bp times per day [Active]; aspirin 81 mg Oral chew [Active]; atorvastatin 40 mg Oral tab 1 tab once daily [Active]; cyclobenzaprine 10 mg Oral tab 1 tab as needed [Active]; fenofibrate micronized 200 mg Oral Tb24 1 cap once daily [Active]; furosemide 40 mg Oral tab 1 tab once daily [Active]; gabapentin 800 mg Oral tab 1 tab 3 times per day [Active]; glipizide 10 mg Oral tab 1 tab once daily [Active]; Humulin N Pen 100 unit/mL (3 mL) Sub-Q inpn [Active]; levothyroxine 50 mcg Tb24 1 cap once daily [Active]; lisinopril 2.5 mg Oral tab 1 tab once daily [Active]; metformin 500 mg Oral tab 1 tab daily [Active]; omeprazole 20 mg Oral cpDR 1 cap once daily [Active]; spironolactone 25 mg Oral tab 1 tab once daily [Active]; tamsulosin 0.4 mg Oral Tb24 1 cap once daily [Active]; venlafaxine 75 mg Oral tab 1 tab 2 times per day [Active]; - PMHx: 09:28 Arthritis; Back pain; CVA; Depression; Diabetes - NIDDM; Fibromyalgia; GERD; bp Hyperlipidemia; Hypertensive disorder; Hypothyroidism; Left sided weakness from previous CVA; Myocardial infarction; Pacemaker; - PSHx: bilat BKA's; bypass; CABG; bp - Immunization history:: Adult Immunizations up to date. - Social history:: Smoking status: Patient reports the use of cigarette tobacco products, unknown amount. Screenin:59 Abuse screen: Denies threats or abuse. Denies injuries from another. Nutritional 6 screening: No deficits noted. Tuberculosis screening: No symptoms or risk factors identified. Fall Risk Gait- Impaired (20 pts.). Assessment: 09:59 General: Appears in no apparent distress. uncomfortable, Behavior is cooperative. Pain: [facility] Pain does not radiate. Pain currently is 6 out of 10 on a pain scale. Quality of pain is described as aching, Pain began suddenly, Is continuous. Cardiovascular: Capillary refill < 3 seconds Clubbing of nail beds is absent JVD is absent Patient's skin is warm and dry. Rhythm is with capture. Respiratory: Airway is patent Trachea midline Respiratory effort is even, Respiratory pattern is regular, Sputum is thin. 11:20 Reassessment: No changes from previously documented assessment. Patient and/or family bp updated on plan of care and expected duration. Pain level reassessed. 12:16 Reassessment: No changes from previously documented assessment. Patient and/or family jh6 updated on plan of care and expected duration. Pain level reassessed. Patient is alert, oriented x 3, equal unlabored respirations, skin warm/dry/pink. pt stating that the med that was given did not help and that he is wanting morphine. 12:59 Reassessment: attempt to call [employer] wheelchair van, do not have drivers available iw this weekend. 13:12 Reassessment: PT MOVED TO ER30 AWAITING TRANSPORT. bp 14:30 Reassessment: Patient appears in no apparent distress at this time. Patient and/or hb family updated on plan of care and expected duration. Pain level reassessed. Patient is alert, oriented x 3, equal unlabored respirations, skin warm/dry/pink. Vital Signs: 09:26 BP 153 / 86; Pulse 88; Resp 20; Temp 98; Pulse Ox 100% ; bp 10:01 BP 150 / 81; Pulse 86; Resp 17; Pulse Ox 100% ; jh6 11:19 BP 146 / 73; Pulse 79; Resp 16; Pulse Ox 100% ; bp 12:17 BP 151 / 85; Pulse 77; Resp 18; Pulse Ox 98% on R/A; jh6 13:12 BP 140 / 75; Pulse 82; Resp 16; Pulse Ox 100% ; bp ED Course: 09:23 Patient arrived in ED. iw 09:25 Angel Merlos MD is Attending Physician. kdr 09:26 Khai Hernandez, SHEBA is Primary Nurse. bp 09:28 Triage completed. bp 09:28 Arm band placed on. bp 09:35 Placed in gown. Bed in low position. Call light in reach. Side rails up X2. Client jh6 placed on continuous cardiac and pulse oximetry monitoring. NIBP monitoring applied. traffic monitor specialist on. 09:35 EKG done, by ED staff, reviewed by Angel Merlos MD. dh3 09:56 XRAY Chest (1 view) In Process Unspecified. EDMS 09:59 Inserted saline lock: 20 gauge in left forearm, using aseptic technique. jh6 10:00 No provider procedures requiring assistance completed. jh6 12:16 Kwesi Muro DO is Referral Physician. kdr 14:30 IV discontinued, intact, bleeding controlled, No redness/swelling at site. Patient hb maintains SpO2 saturation greater than 95% on room air. Administered Medications: 10:50 Drug: Ketorolac 15 mg Route: IVP; Site: left hand; [facility] er 11:20 Follow up: Response: No adverse reaction bp 12:15 Follow up: Response: No change in condition 6 12:09 Not Given (Patient Refused; PER PT, I ONLY WANT A SHOTt): Hugo bp (HYDROcodone-acetaminophen) 10 mg-325 mg 1 tabs PO once Medication: 10:01 VIS not applicable for this client. 6 Outcome: 12:17 Discharge ordered by . kdr 14:30 Discharged to home via ambulance. 14:30 Condition: stable 14:30 Discharge instructions given to patient, Instructed on discharge instructions, follow up and referral plans. Demonstrated understanding of instructions, follow-up care. 15:11 Patient left the ED. iw Signatures: Dispatcher [employer] EDMS Angel Merlos MD MD [facility] Polly Leal, RN SHEBA Desiree Woodson, RN RN [place] 3 Khai Hernandez RN RN Gina Muniz RN RN 6
--- NOTE | 2022-02-04 12:28 | EKG ---
Test Date: 2022-02-04 Test Time: 09:32:44 Real Estate Agent: MARÍA MEASUREMENT RESULTS: Intervals: Rate: 88 ID: [id number] QRSD: 160 QT: 420 QTc: 508 [place]: P: 65 ID: [id number] QRS: -44 T: 138 INTERPRETIVE STATEMENTS: Electronic ventricular pacemaker Compared to ECG 02/02/2022 05:03:13 Atrial-sensed ventricular-paced complex(es) or rhythm no longer present Electronically Signed On 02-04-22 12:27:44 CDT by Luca Royal
[2022-02-05 21:36] VITALS: BP 140/75; O2SAT 100
[2022-02-05 21:43] VITALS: TEMP 98
== END 2022-02-04 15:11 | disposition home or self-care (01) ==
LOC: ER 09:20
DX: R07.89 Other chest pain (principal); R07.9 Chest pain, unspecified; F17.210 Nicotine dependence, cigarettes, uncomplicated; I10 Essential (primary) hypertension; E11.9 Type 2 diabetes mellitus without complications; Z95.1 Presence of aortocoronary bypass graft; Z89.512 Acquired absence of left leg below knee; Z89.511 Acquired absence of right leg below knee; Z95.0 Presence of cardiac pacemaker
CPT/HCPCS: 36415; 71045; 80048; 84484; 85025; 85610; 93005; 96374; 99285

== ENCOUNTER 2022-02-09 12:15 | Observation (INO) | payer OTHER ==
[2022-02-09 12:49] LABS: Absolute Lymphocytes (CBC) 1.7 K/uL (0.7-4.9); Hematocrit 34.3 % (39.6-49.0); Lymphocytes % 19.7 % (15.3-44.8); RBC Red Blood Cell Count 3.77 M/uL (4.33-5.43)
--- OUTSIDE RECORDS SUMMARY | 2022-02-09 12:59 | XMS REPORT | Continuity of Care Document ---
:1960 Author Organization [facility] t Address [address] [place] [address] Care Team Providers Name Role Phone MONIKA HALL MD Primary Care Physician [id number] Attending Clinician Unavailable Harshal Zhu Attending Clinician [...] Clinician Unavailable NICHELLE PALACIOS Attending Clinician Unavailable [id number] Admitting Clinician Unavailable Nika Martin Admitting Clinician [...] Number Effective Date Expiration Date S willow [facility] [id number] [employer] [id number] 2018spring 00:00:00 [place] [id number] 2004 LUCY Frankel 00:00:00 [facility] [...] on on 00:00: [place] exertion) exertion) 00 [facility] uriel Branch Pleural Pleural Disease Active Univers effusion, effusion, 8-13 [place] of bilateral bilateral 00:[place] CHF CHF Disease Active Univers (congestiv (congestiv 5-05 it y of e heart e heart 00:00: [place] failure), failure), 00 [facility] NYHA class NYHA class Br anch I, acute I, acute on on chronic, chronic, combined combined Hypotensio Hypotensio Disease Active U nivers n n 4-15 ity of 00:00: [place] [facility] Sepsis Sepsis Disease Active Univers 4-14 ity of 00:00: [place] [facility] Right leg Right leg Disease Active Uni vers pain pain 3-09 ity of 00:00: [place] [facility] Acute on Acute on Disease Active Unive rs chronic chronic 3-09 ity of diastolic diastolic 00:00[place] (congestiv (congestiv 00 Me dical e) heart e) heart Branch failure failure Chest pain Chest pain Disease Active U nivers 3-08 ity of 00:00: [place] [facility] Acute on Acute on Disease [...] Added automatic ally from request for surgery [id number] Troponin I Troponin I Disease Active U nivers above above 9-16 ity of [...] level Chest pain Chest pain Disease Active U nivers in adult in adult 9-14 ity of 00:00: [place] [facility] Cellulitis Cellulitis Disease Active U nivers of left of left 6-27 ity of foot foot 00:00: [place] 00 Medical Branch Pacemaker Pacemaker Disease Active Uni vers 3-18 ity of 00:00: [place] 00 Medical Branch PAF PAF Disease Active Univers (paroxysma (paroxysma 3-18 it y of l atrial l atrial 00:00: [place] fibrillati fibrillati 00 Me dical on) on) Branch Abdominal Abdominal Disease Active 2019- Uni vers pain pain 2-27 ity of 00:00: [place] [facility] Pacemaker Pacemaker Disease Active Uni vers malfunctio malfunctio 2-04 it y of n n 00:00: [place] [facility] Cellulitis Cellulitis Disease Active 2018-05 U nivers 1-19 ity of 00:00: [place] 00 Medical Branch Arterioven Arterioven Disease Active 2019 U nivers ous ous 9-25 ity of [...] 00:00: [place] involving involving 00 Medi uriel [place] 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 Type 2 Type 2 Disease Active Univers diabetes diabetes 01-17 ity of mellitus mellitus 00:00: [place] without without 00 Medical complicati complicati Br anch on, on, without without long-term long-term current current use of use of insulin insulin Essential Essential Disease Active Uni vers hypertensi hypertensi 01-17 it y of on on 00:00: [place] [facility] Other Other Disease Active Univers hyperlipid hyperlipid 01-17 it y of emia emia 00:00: [place] [facility] Stroke Stroke Disease Active Univers 5-12 ity of 00:00: [place] [facility] Left-sided Left-sided Disease Active U nivers weakness weakness 5- ity of 00:00: [place] [facility] Left [...] pain 2-22 it y of 00:00: [place] 00 Medical Branch Chest pain Chest pain Problem Active [facility] Coronary CAD Problem Active [facility] artery (coronary [facility] disease artery Patient disease) [facility] [place] Diabetic DKA Problem Active [facility] ketoacidos (diabetic Esme es is ketoacidos Patien t es) [facility] [place] Hyperglyce Hyperglyce Problem Active [facility] bambi bambi [facility] Patient [facility] Hypertensi Hypertensi Problem Active [facility] on on [facility] Patient [facility] Pancreatit Pancreatit Problem Active C [facility] is is [facility] Patient [facility] Uncontroll Uncontroll Problem Active C [facility] ed ed [facility] diabetes diabetes Patien t mellitus mellitus Medica l Center Allergies, Adverse Reactions, Alerts Allergy Allergy Status Severity Reaction(s) Onset Inactive Treating Comm ents Source Name Type Date Date Clinician No Known DA Active U [facility] Allergie 3-22 [place] 00:00: d 00 [facility] No Known DA Active U 2020- [facility] Allergie 3-22 [place] 00:00: d 00 [facility] No Known DA Active U 2017- [facility] Allergie 2-31 Clear s 00:00: Mejia 00 [facility] No Known DA Active U 2017- [facility] Allergie 2-31 Clear s 00:00: Mejia 00 [facility] No Known DA Active U 2017-0 [facility] Allergie 3-26 [place] 00:[place]: e 00 [facility] NO KNOWN Drug Active Univers ALLERGIE Class ity of S [place] [facility] Social History Social Habit Start Date Stop Date Quantity Comments Source History of Cigarette Smoker Universi ty of tobacco use [place] [facility] History SDOH University o f Alcohol Frequency [place] M edical Branch History SDOH University o f Alcohol Std [place] [facility] Drinks Branch History SDCA University o f Alcohol Binge [place] [facility] Exposure to 2021-10-30 2021-11-09 Unable to assess Univers ity of SARS-CoV-2 00:00:00 15:13:00 [place] [facility] (event) Branch Alcohol intake 2021-11-05 2021-11-05 1.71 /d University of 00:00:00 00:00:00 [facility] Branch Tobacco Comment 2021-11-03 2021-11-03 quit 15 years ago Un iversity of 00:00:00 00:00:00 [facility] Branch Education 2021-10-27 2021-10-27 9 University of 00:00:00 00:00:00 [place] [facility] History SDCA 2020-03-16 2020-03-16 3 University o f Financial 00:00:00 00:00:00 [place] [facility] History SDCA Food 2020-03-16 2020-03-16 2 Univers ity of Worry 00:00:00 00:00:00 [place] [facility] History SDCA Food 2020-03-16 2020-03-16 2 Univers ity of Scarcity 00:00:00 00:00:00 [place] [facility] History SDOH 2020-03-16 2020-03-16 1 University o f Transport Med 00:00:00 00:00:00 [place] [facility] History SDOH 2020-03-16 2020-03-16 1 University o f Transport Non-Med 00:00:00 00:00:00 [facility] Alcohol Comment 2019-07-18 2019-07-18 quit drinking Malgorzata sity of 00:00:00 00:00:00 2013 but drank [facility] heavily before Branch this Tobacco use and 2018-07-14 2018-07-14 Never used Universit y of exposure 00:00:00 00:00:00 [facility] Sex [birth year] At [birth year] LUCY Sanders 00:00:00 00:00:00 [facility] Center Smoking Status Start Date Stop Date Source Former smoker 2018-07-14 00:00:00 2018-07-14 00:00:00 [facility] Medications Ordered Filled Start Stop [...] Fri Branch 11/05/21 at 0215, PIERRE dexamethaso No 10mg 10 mg, Uni vers ne sod phos 11-05 Slow IV ity of PF 07:15: 06:56 Push, [place] injection 00 :00 ONCE, 1 Medical 10 mg dose, On Branch 11/05/21 at 0215, 1 mL gabapentin 2021- No [id number] 300mg Take 1 Univers 300 mg 11-05 capsule by ity of capsule 00:00: 04:59 mouth 3 [place] 00 :00 (three) Medical times Branch daily for 10 days. gabapentin 2021- No [id number] 300mg Take 1 Univers 300 mg 11-05 capsule by ity of capsule 00:00: 04:59 mouth 3 [place] 00 :00 (three) Medical times Branch daily for 10 days. aspirin 81 2021- No [id number] 81mg Take 1 Univers mg chewable 6-16 07-17 tablet by it y of tablet 00:00: 04:59 mouth [place] 00 :00 daily for Medical 30 days. Branch aspirin 81 2021- No [id number] 81mg Take 1 Univers mg chewable 6-16 07-17 tablet by it y of tablet 00:00: 04:59 mouth [place] 00 :00 daily for Medical 30 days. Branch aspirin 81 2021- No [id number] 81mg Take 1 Univers mg chewable 6-16 07-17 tablet by it y of tablet 00:00: 04:59 mouth [place] 00 :00 daily for Medical 30 days. Branch proMETHazin Yes [id number] 25mg Take 1 Univers e 25 mg 6-03 tablet by ity of tablet 00:00: mouth [place] 00 every 6 Medical (six) Branch hours as needed for Nausea and Vomiting (N/V). proMETHazin Yes [id number] 25mg Take 1 Univers e 25 mg 6-03 tablet by ity of tablet 00:00: mouth [place] 00 every 6 Medical (six) Branch hours as needed for Nausea and Vomiting (N/V). proMETHazin Yes [id number] 25mg Take 1 Univers e 25 mg 6-03 tablet by ity of tablet 00:00: mouth [place] 00 every 6 Medical (six) Branch hours as needed for Nausea and Vomiting (N/V). fenofibrate 2021- No [id number] 134mg Take 1 Univers micronized -19 12- capsule by it y of 134 mg 00:00: 04:59 mouth [place] capsule 00 :00 daily for Medical 30 days. Branch lisinopriL 2021- No [id number] 2.5mg Take 1 Univers 2.5 mg -19 12- tablet by ity of tablet 00:00: 04:59 mouth [place] 00 :00 daily for Medical 30 days. Branch fenofibrate 2021- No [id number] 134mg Take 1 Univers micronized -19 12- capsule by it y of 134 mg 00:00: 04:59 mouth [place] capsule 00 :00 daily for Medical 30 days. Branch lisinopriL 2021- No [id number] 2.5mg Take 1 Univers 2.5 mg -19 12- tablet by ity of tablet 00:00: 04:59 mouth [place] 00 :00 daily for Medical 30 days. Branch fenofibrate 2021- No [id number] 134mg Take 1 Univers micronized -19 12- capsule by it y of 134 mg 00:00: 04:59 mouth [place] capsule 00 :00 daily for Medical 30 days. Branch lisinopriL 2021- No [id number] 2.5mg Take 1 Univers 2.5 mg -19 12- tablet by ity of tablet 00:00: 04:59 mouth [place] 00 :00 daily for Medical 30 days. Branch furosemide 2021- No [id number] 40mg Take 1 Univers 40 mg 5-30 [...] s: atrial fibrillati on calcitrioL 2021- No [id number] .5ug Take 1 Univers 0.5 mcg 5-30 06-30 capsule by ity o f capsule 00:00: 04:59 mouth [place] 00 :00 daily for Medical 30 days. Branch insulin NPH 2021- No [id number] 5U inject 5 Univers (HUMULIN N 5-30 06-30 Units ity of NPH U-100 00:00: 04:59 [place]IN[place] 00 :00 skin every Medic al 100 unit/mL evening Branc h injection for 30 days. atorvastati 2021- No [id number] 40mg Take 1 Univers n 40 mg 5-30 06-30 tablet by ity of tablet 00:00: 04:59 mouth at [place] 00 :00 bedtime Medical for 30 Branch days. carvediloL 2021- No [id number] 3.125mg Take 1 Univers 3.125 mg 5-30 06-30 tablet by ity o f tablet 00:00: 04:59 mouth 2 [place] 00 :00 (two) Medical times Branch daily with meals for 30 days. furosemide 2021- No [id number] 40mg Take 1 Univers 40 mg 5-30 [...] s: atrial fibrillati on calcitrioL 2021- No [id number] .5ug Take 1 Univers 0.5 mcg 5-30 06-30 capsule by ity o f capsule 00:00: 04:59 mouth [place] 00 :00 daily for Medical 30 days. Branch insulin NPH 2021- No [id number] 5U inject 5 Univers (HUMULIN N 5-30 06-30 Units ity of NPH U-100 00:00: 04:59 [place]IN[place] 00 :00 skin every Medic al 100 unit/mL evening Branc h injection for 30 days. atorvastati 2021- No [id number] 40mg Take 1 Univers n 40 mg 5-30 06-30 tablet by ity of tablet 00:00: 04:59 mouth at [place] 00 :00 bedtime Medical for 30 Branch days. carvediloL 2021- No [id number] 3.125mg Take 1 Univers 3.125 mg 5-30 06-30 tablet by ity o f tablet 00:00: 04:59 mouth 2 [place] 00 :00 (two) Medical times Branch daily with meals for 30 days. furosemide 2021- No [id number] 40mg Take 1 Univers 40 mg 5-30 [...] s: atrial fibrillati on calcitrioL 2021- No [id number] .5ug Take 1 Univers 0.5 mcg 5-30 -30 capsule by ity o f capsule 00:00: 04:59 mouth [place] 00 :00 daily for Medical 30 days. Branch insulin NPH 2021- No [id number] 5U inject 5 Univers (HUMULIN N 5-30 06-30 Units ity of NPH U-100 00:00: 04:59 [place]ULIN[place] 00 :00 skin every Medic al 100 unit/mL evening Branc h injection for 30 days. atorvastati 2021- No [id number] 40mg Take 1 Univers n 40 mg 5-30 06-30 tablet by ity of tablet 00:00: 04:59 mouth at [place] 00 :00 bedtime Medical for 30 Branch days. carvediloL 2021- No [id number] 3.125mg Take 1 Univers 3.125 mg 5-30 06-30 tablet by ity o f tablet 00:00: 04:59 mouth 2 [place] 00 :00 (two) Medical times Branch daily with meals for 30 days. metFORMIN Yes [id number] 500mg Take 1 U nivers 500 mg 3-02 tablet by ity of tablet 00:00: mouth 2 [place] 00 (two) Medical times Branch daily with meals. metFORMIN 2021-0 Yes [id number] 500mg Take 1 U nivers 500 mg 3-02 tablet by ity of tablet 00:00: mouth 2 [place] (two) Medical times Branch daily with meals. metFORMIN 2021-0 Yes [id number] 500mg Take 1 U nivers 500 mg 3-02 tablet by ity of tablet 00:00: mouth 2 [place] (two) Medical times Branch daily with meals. albuterol Yes [id number] 2{puff} Inhale 2 Univers 90 2-21 Puffs 2 ity of mcg/actuati 00:00: (two) [place] on inhaler 00 times Medical daily. Branch collagenase Yes [id number] Use as Univers 250 2-21 directed ity of unit/gram 00:00: by office Juan J as ointment 00 Medical Branch cyclobenzap Yes [id number] 10mg Take 1 Univers rine 10 mg 2-21 tablet by ity of tablet 00:00: mouth 2 [place] (two) Medical times Branch daily as needed for Muscle Spasms. dextrometho 0 Yes [id number] 10mL Take 10 mL Univers rphan-guaif 2-21 by mouth ity of enesin 00:00: every 6 [place] 10-100 mg/5 00 (six) Medical mL solution hours as Bran ch needed for Cough. HYDROcodone 0 Yes 1{tbl} Take 1 Un charley -acetaminop 2-21 tablet by ity of hen 5-325 00:00: mouth [place] mg tablet 00 every 6 Medical (six) Branch hours as needed for Pain (scale 4-6). melatonin 3 2021-0 Yes [id number] 3mg Take 1 Univers mg tablet 2-21 tablet by ity o f 00:00: mouth at [place] 00 bedtime. Medical Branch ondansetron 0 Yes [id number] 4mg Take 1 Univers 4 mg 2-21 tablet by ity of disintegrat 00:00: mouth [place] ing tablet 00 every 8 Medica l (eight) Branch hours as needed for Nausea and Vomiting (N/V). albuterol 2021-0 Yes [id number] 2{puff} Inhale 2 Univers 90 2-21 Puffs 2 ity of mcg/actuati 00:00: (two) [place] on inhaler 00 times Medical daily. Branch collagenase Yes [id number] Use as Univers 250 2-21 directed ity of unit/gram 00:00: by office Juan J as ointment 00 Medical Branch cyclobenzap Yes [id number] 10mg Take 1 Univers rine 10 mg 2-21 tablet by ity of tablet 00:00: mouth 2 [place] 00 (two) Medical times Branch daily as needed for Muscle Spasms. dextrometho Yes [id number] 10mL Take 10 mL Univers rphan-guaif 2-21 [...] for Pain (scale 4-6). melatonin 3 Yes [id number] 3mg Take 1 Univers mg tablet 2-21 tablet by ity o f 00:00: mouth at [place] 00 bedtime. Medical Branch ondansetron Yes [id number] 4mg Take 1 Univers 4 mg 2-21 tablet by ity of disintegrat 00:00: mouth [place] ing tablet 00 every 8 Medica l (eight) Branch hours as needed for Nausea and Vomiting (N/V). albuterol Yes [id number] 2{puff} Inhale 2 Univers 90 2-21 Puffs 2 ity of mcg/actuati 00:00: (two) [place] on inhaler 00 times Medical daily. Branch collagenase Yes [id number] Use as Univers 250 2-21 directed ity of unit/gram 00:00: by office Juan J as ointment 00 Medical Branch cyclobenzap Yes [id number] 10mg Take 1 Univers rine 10 mg 2-21 tablet by ity of tablet 00:00: mouth 2 [place] 00 (two) Medical times Branch daily as needed for Muscle Spasms. dextrometho Yes [id number] 10mL Take 10 mL Univers rphan-guaif 2-21 [...] for Pain (scale 4-6). melatonin 3 Yes [id number] 3mg Take 1 Univers mg tablet 2-21 tablet by ity o f 00:00: mouth at [place] 00 bedtime. Medical Branch ondansetron Yes [id number] 4mg Take 1 Univers 4 mg 2-21 tablet by ity of disintegrat 00:00: mouth [place] ing tablet 00 every 8 Medica l (eight) Branch hours as needed for Nausea and Vomiting (N/V). Aspirin 81 Aspirin 81 2018- No Alexis [address] Mg Tab.chew Mg Tab.chew 10-26 Brooke Fraknel 00:00: 00:00 Patient 00 :00 [facility] Diflunisal Diflunisal 2015- No Todd Wynn [address] [facility] (Dolobid) (Dolobid) 01-17 [facility] 500 Mg 500 Mg 00:00: 00:00 Patient Tablet, 500 Tablet, 500 00 :00 M edical Mg Oral Mg Oral Center Ondansetron Ondansetron 2015- No Todd Wynn [address] [facility] Hcl Hcl 01-17 [place] as Luke s (Zofran*) 4 (Zofran*) 4 00:00: 00:00 needed for Patient Mg Tablet, Mg Tablet, 00 :00 Nausea M edical 4 Mg 4 Mg [place] Sublingual Sublingual Clopidogrel Clopidogrel Yes 75 Daily [...] Tablet Mg Tablet Day [facility] Patient Medical [place] Hydrocodone Hydrocodone Yes [address] [facility] Bit/Acetami Bit/Acetami Hours as [facility] nophen nophen needed for [facility] [facility] [facility] 10-325 10-325 Center Tablet) 1 [...] Mg 20 Mg [facility] Capsule. Capsule.[facility] Simvastatin Simvastatin Yes [address] 80 Mg 80 Mg [facility] Tablet Tablet Patient Medical Center Tamsulosin Tamsulosin Yes Daily [facility] Hcl 0.4 Mg Hcl 0.4 Mg Esme es Cap.er.24h Cap.er.24h Pat [facility] Tramadol Tramadol Yes 50 Four Times C [...] Navid blanco Mg Oral Mg Oral :00 [facility] Insulin Insulin 2016- No 40 7AM &Hs [facility] Human Nph Human Nph 10-15 Luke s (Humulin N) (Humulin N) 00:00 Patient 100 100 :00 Medical Units/Ml Units/Ml [place] Ml, 40 Ml, 40 Sub-Q Sub-Q Naloxone [...] Manjula ent Mg Oral Mg Oral :00 [facility] Clindamycin Clindamycin 2016- No 300 Three [...] 06-17 [facility] Capsule., Capsule., 00:00 Patient :00 [facility] Insulin Insulin No 90 Twice A [facility] t Glargine Glargine 12-11 Day [facility] (Lantus) (Lantus) 00:00 Patien t 100 100 :00 Medical Units/Ml Units/Ml Center Ml, 90 Unit Ml, 90 Unit Subcutaneou Subcutaneou sly sly Insulin Insulin [address] Regular, Regular, 12-11 Times [...] 25 Mg Oral 25 Mg Oral :00 [facility] Albuterol Albuterol No 90 As Needed [...] 00:00 Patient Mg Oral Mg Oral :00 [facility] Methocarbam Methocarbam No [address] ol ol 11-23 Times A [facility] (Robaxin) (Robaxin) 00:00 Day Manjula ent 500 Mg 500 Mg :00 Medical Tablet, 500 Tablet, 500 C enter Mg Oral Mg Oral Metronidazo Metronidazo No [address] le 500 Mg le 500 Mg 11-23 Luke s Tablet, 500 Tablet, 500 00:00 Patient Mg Oral Mg Oral :00 [facility] Nitroglycer Nitroglycer 2015- No .[address] in in 11-23 for Chest [facility] (Nitrostat) (Nitrostat) 00:00 Pain Patient 0.4 Mg 0.4 Mg :00 Medical Tab.subl, Tab.subl, Cente r 0.4 Mg 0.4 Mg Sublingual Sublingual Pantoprazol Pantoprazol No [address] e Sodium e Sodium 11-23 [facility] (Protonix) (Protonix) 00:00 Pa tient 40 Mg 40 Mg :00 Medical Tablet., Tablet., Agustin ter 40 Mg Oral 40 Mg Oral Sucralfate Sucralfate [address] [facility] 1 Gm 1 Gm 11-23 Day [facility] Tablet, 1 Tablet, 1 00:00 Manjula ent Gm Oral Gm Oral :00 [facility] Temazepam Temazepam [address] (Restoril) (Restoril) 11-23 Theresa kes 30 Mg 30 Mg 00:00 Patient Capsule, 30 Capsule, 30 :00 M edical Mg Oral Mg Oral Center Tizanidine Tizanidine [address] Hcl 4 Mg Hcl 4 Mg 11-23 [facility] Capsule, 4 Capsule, 4 00:00 Pa tient Mg Oral Mg Oral :00 [facility] Trazodone Trazodone No [address] Hcl 50 Mg Hcl 50 Mg 11-23 Luke s Tablet, 50 Tablet, 50 00:00 Pa tient Mg Oral Mg Oral :00 [facility] Venlafaxine Venlafaxine 37.[address] [facility] Hcl 37.5 Mg Hcl 37.5 Mg 11-23 Day [facility] Tablet, Tablet, 00:00 Patient 37.5 Tab 37.5 Tab :00 Medical Oral Oral Center Cyclobenzap Cyclobenzap [address] rine Hcl 10 rine Hcl 10 12-19 Times A [facility] Mg Tablet, Mg Tablet, 00:00 Day Pa tient 10 Mg Oral 10 Mg Oral :00 [facility] ical [place] Gabapentin Gabapentin [address] 300 Mg 300 Mg 12-19 Times A [facility] Capsule, Capsule, 00:00 Day Patien t 600 Mg Oral 600 Mg Oral :00 [facility] Pregabalin Pregabalin 150 Twice A [facility] [...] 2021-01-16 Completed Universit y of Vaccine 00:00:00 [facility] Influenza Virus 2021-01-16 Completed Universit y of Vaccine 00:00:00 [facility] Influenza Virus 2021-01-16 Completed Universit y of Vaccine 00:00:00 [facility] SARS-COV-2 COVID-19 2020-10-16 Completed Unive rsity of PEDRO/J&J VACCINE 00:00:00 [facility] SARS-COV-2 COVID-19 2020-10-16 Completed Unive rsity of PEDRO/J&J VACCINE 00:00:00 [facility] SARS-COV-2 COVID-19 2020-10-16 Completed Unive rsity of PEDRO/J&J VACCINE 00:00:00 [facility] Influenza Virus 2020-01-21 Completed Universit y of Vaccine 00:00:00 [facility] Influenza Virus 2020-01-21 Completed Universit y of Vaccine 00:00:00 [facility] Influenza Virus 2020-01-21 Completed Universit y of Vaccine 00:00:00 [facility] Zoster Vaccine 2019-07-17 Completed University of Recombinant 00:00:00 [facility] Zoster Vaccine 2019-07-17 Completed University of Recombinant 00:00:00 [facility] Zoster Vaccine 2019-07-17 Completed University of Recombinant 00:00:00 [facility] Td 2019-03-29 Completed University of 00:00:00 [facility] Td 2019-03-29 Completed University of 00:00:00 [facility] Td 2019-03-29 Completed University of 00:00:00 [facility] Influenza Virus 2018-02-18 Completed Universit y of Vaccine 00:00:00 [facility] Pneumococcal 2018-02-18 Completed University o f Polysaccharide, 00:00:00 [place] Med ical PPSV23 (PNEUMOVAX) [place] Influenza Virus 2018-02-18 Completed Universit y of Vaccine 00:00:00 [facility] Pneumococcal 2018-02-18 Completed University o f Polysaccharide, 00:00:00 [place] Med ical PPSV23 (PNEUMOVAX) [place] Influenza Virus 2018-02-18 Completed Universit y of Vaccine 00:00:00 [facility] Pneumococcal 2018-02-18 Completed University o f Polysaccharide, 00:00:00 [place] Med ical PPSV23 (PNEUMOVAX) [place] Influenza Virus 2008-03-19 Completed Universit y of Vaccine 00:00:00 [facility] Pneumococcal 2008-03-19 Completed University o f Polysaccharide, 00:00:00 [place] Med ical PPSV23 (PNEUMOVAX) Branch Influenza Virus 2008-03-19 Completed Universit y of Vaccine 00:00:00 [facility] Pneumococcal 2008-03-19 Completed University o f Polysaccharide, 00:00:00 [place] Med ical PPSV23 (PNEUMOVAX) Branch Influenza Virus 2008-03-19 Completed Universit y of Vaccine 00:00:00 [facility] Pneumococcal 2008-03-19 Completed University o f Polysaccharide, 00:00:00 [facility] ical PPSV23 (PNEUMOVAX) Branch Vital Signs Vital Name Observation Time Observation Value Comments Source Systolic blood 2021-11-09 23:00:00 124 mm[Hg] Univer sity of pressure [facility] Diastolic blood 2021-11-09 23:00:00 69 mm[Hg] Unive rsity of [facility] Heart rate 2021-11-09 23:00:00 72 /min [facility] Respiratory rate 2021-11-09 23:00:00 25 /min [facility] Oxygen saturation in 2021-11-09 23:00:00 98 /min [place] of Arterial blood by [place] Acheive CCA uriel Pulse oximetry Branch Body temperature 2021-11-09 20:28:39 37.22 Sandy [facility] Body height 2021-11-09 20:16:00 170.2 cm [facility] Body weight 2021-11-09 20:16:00 71.215 kg [facility] BMI 2021-11-09 20:16:00 24.59 kg/m2 [facility] Systolic blood 2021-11-05 10:00:00 134 mm[Hg] Univer sity of [facility] Diastolic blood 2021-11-05 10:00:00 78 mm[Hg] Unive rsity of [facility] Heart rate 2021-11-05 10:00:00 81 /min [facility] Body temperature 2021-11-05 08:10:00 36.28 [facility] [facility] Res[facility] rate 2021-11-05 08:00:00 18 /min [facility] Oxygen saturation in 2021-11-05 08:00:00 99 /min [facility] Arterial blood by [facility] Pulse oximetry Branch Body height 2021-11-05 05:48:00 170.2 cm [facility] Body weight 2021-11-05 05:48:00 71.215 kg [facility] BMI 2021-11-05 05:48:00 24.59 kg/m2 [facility] Procedures Procedure Date / Time Performing Clinician Source Performed B-TYPE NATRIURETIC 2022-01-30 18:10:[address] [facility] Medical FACTOR (BNP) Center XR CHEST 1 VW 2021-11-09 21:07:00 Troy Ku M[facility] POCT GLUCOSE 2021-11-09 20:25:00 Troy Ku [facility] (AUTOMATED) [facility] MAGNESIUM 2021-11-09 20:19:00 Troy Ku [facility] TROPONIN I 2021-11-09 20:19:00 Troy Ku M[facility] COMP. METABOLIC PANEL 2021-11-09 20:19:00 Troy Ku [facility] (19410) [facility] CBC WITH DIFF 2021-11-09 20:19:00 Troy Ku [facility] N-TERMINAL PRO-BNP 2021-11-09 20:19:00 Troy Ku [facility] XR CHEST 1 VW 2021-11-05 06:38:35 Mihaela Martin [facility] [id number] 2020-08-11 00:00:00 ALDMO [facility] [id number] 2020-08-11 00:00:00 ALDMO [facility] [id number] 2020-08-11 00:00:00 ALDMO [facility] [id number] 2020-08-11 00:00:00 ALDMO [facility] Computed tomography 2017-10-24 00:00:00 ALEXIS [facility] Patient angiography of [facility] CT angiography of chest 2017-10-23 00:00:00 KHAI WAHL [facility] Computed tomography of 2017-10-23 00:00:00 KHAI [...] Clinicians Facility Department ID 2021-06-17 Outpatient 3 [id number] ENCKY MALDONADO [id number] ENCKY 10:24:03 37888 2021-06-17 Outpatient 3 [id number] ENCKY REF [id number] ENCKY 10:22:04 82371 2020-08-23 Inpatient HCACL FERNANDO [id number] [facility] 17:41:00 84 [facility] 2020-04-04 Inpatient Marko, HCAMN HCAMN [id number] [facility] 14:40:00 Edward 33 [facility] 2019-10-15 Inpatient RADHA Shah, HCAPM ENDO [id number] [facility] 15:30:00 Finn [address] [facility] 2022-01-30 2022-01-30 Lab [facility] [id number] 00:00:00 00:00:00 [facility] 2022-01-30 2022-01-30 [facility] [id number] 00:00:00 00:00:00 [facility] 2021-11-09 2021-11-09 Emergency X Troy KU [facility] ERT [id number] Univers 15:15:00 18:32:00 ity of [facility] 2021-11-09 2021-11-09 Emergency Troy Ku [facility] 1.2.840.114 [id number] Univers 15:15:00 18:32:00 Mckenzie PEREZ 350.1.13.10 i ty [facility] 4.2.7.2.686 [facility] [id number] [address] 2021-11-05 2021-11-05 Emergency X VERONICA, [facility] ERT [id number] Univers 00:44:00 06:53:00 MIHAELA vashti [facility] 2021-11-05 2021-11-05 Emergency Veronica, [facility] [id number] Univers 00:44:00 06:53:00 Mihaela SILVESTREABHISHEK 350.1.13.10 ity of [facility] 4.2.7.2.686 [place] [id number] [place] [id number] [place] 2021-11-04 2021-11-04 Transition RIVAS Feliciano 1.2.840.114 [id number] Univers 00:00:00 00:00:00 of Jennifer DUQUE 350.1.13.10 it y of MARIE 4.2.7.2.686 [facility] [id number] [facility] [address] 2021-11-02 2021-11-03 Outpatient X BRAYDON [facility] [id number] Univers 22:35:00 15:46:00 OC [facility] 2021-10-27 2021-10-29 Outpatient [facility] [id number] Univers 17:41:00 14:03:00 ANA MARIA [facility] 2021-07-21 2021-07-21 Outpatient Wong_H VFP VFP [id number] [facility] 06:58:00 06:58:00 [id number] Family Practic e 2020-10-30 2020-11-05 Inpatient EM DILIP Carrera [facility] [id number] [facility] 16:50:00 13:52:00 Fede [address]24 [facility] 2020-10-31 2020-10-31 Outpatient AMELIA Carrera LABO [id number] [facility] 08:22:00 08:22:00 Fede 73 [facility] 2020-10-28 2020-10-28 Hospital Radiology [facility] 1.2.840.114 [id number] 08:30:17 23:59:00 Encounter Sera 350.1.13.10 [place] 4.2.7.2.686 [facility] [id number] 2020-10-12 2020-10-12 Outpatient R CHANTELLE [facility] [id number] Univers 14:00:00 14:50:48 PERLA baugh [facility] 2020-10-06 2020-10-06 Office Ivana [facility] 1.2.840.114 [id number] 10:43:51 11:59:29 Visit Gina Sera 350.1.13.10 [place] 4.2.7.2.686 Piyush [id number] [facility] 205 [facility] 2020-08-19 2020-08-19 Outpatient MAURILIO, HCABM OPLA [id number] [facility] 07:13:00 07:13:00 DOES_NOT 89 [facility] 2020-08-10 2020-08-14 Inpatient ANNEL CareyCL INTE.02 [id number] [facility] 09:09:00 18:56:[address] 2017-10-23 2017-10-27 [id number] 17:29:00 16:54:00 Inpatient ALEXIS 90 [place] [facility] 2017-04-03 2017-04-04 [facility] [id number] 23:17:00 03:53:00 Emergency LAIRD 58 Luke [facility] Room [facility] 2017-03-05 2017-03-09 Discharged ER PHLIIP, [facility] [id number] 06:54:00 10:58:00 Inpatient NICHELLE 46 Luke s (obs) [facility] 2017-01-04 2017-01-05 Discharged [facility] [id number] 10:33:00 18:56:00 Inpatient 63 Luke s (obs) [facility] Results Test Description Test Time Test Comments Results Result Comments Source B-type Natriuretic Factor (BNP) 2022-01-30 23:33:12 Test Item Value Reference Range Interpretation Comme nts BNP (test code = 92981-5) 443 pg/mL 0-100 H DIANE (test code = DIANE) Oil Tester ID - ADRY Lab Interpretation (test code = 44335-2) [facility]2022-01-30 23:33:12 Test Item Value Reference Range Interpretation Comments BNP (test code = 14722-1) 443 pg/mL 0-100 H DIANE (test code = DIANE) Oil Tester ID - ADRY Lab Interpretation (test Abnormal code = 64720-1) [facility] (BNP)2022-01-30 23:33:12 Test Item Value Reference Range Interpretation Comments BNP (test code = 48529-7) 443 pg/mL 0-100 H DIANE (test code = DIANE) Oil Tester ID - ADRY Lab Interpretation (test Abnormal code = 11823-2) [facility] (BNP)2022-01-30 23:33:12 Test Item Value Reference Range Interpretation Comments BNP (test code = 14557-5) 443 pg/mL 0-100 H DIANE (test code = DIANE) Oil Tester ID - ADRY Lab Interpretation (test Abnormal code = 85817-3) [facility] NATRIURETIC FACTOR (BNP)2022-01-30 23:33:12 Test Item Value Reference Range Interpretation Comments B-TYPE NATRIURETIC PEPTIDE (BEAKER) 443 pg/mL 0-100 H (test code = 700) Oil Tester ID - ADRYTROPONIN [id number] 20:57:59 Test Item Value Reference Interpretation Comments Range TROPONIN I (test 0.017 ng/mL See_Comment [Automated code = 0621696335) message] The system which generated this result [...] biotin. Lab Interpretation Normal (test code = 82197-1) [id number] 20:54:59 Test Item Value Reference Range Interpretation Comments NT-proBNP (test code 6490 pg/mL See_Comment H [Autom ated = 2736720648) message] The system which generated this result transmitted reference range : <=125. The reference range was not used to interpret this result as normal/abnormal . DIANE (test code = DIANE) Biotin has been reported to cause a negative bias, interpret results relative to patient's use of biotin. Lab Interpretation Abnormal (test code = 45640-8) [facility] 20:46:35 Test Item Value Reference Range Interpretation Comments MAGNESIUM (test code = 8440211513) 1.5 mg/dL 1.7-2.4 L Lab Interpretation (test code = Abnormal 48347-0) [facility] MET[facility]OLIC PANEL (32172)2021-11-09 20:46:34 Test Item Value Reference Range Interpretation Comments NA (test code = 140 mmol/L 135-145 7413664766) K (test code = 3.9 mmol/L 3.5-5.0 9779595135) CL (test code = 111 mmol/L 98-108 H 6671346562) CO2 TOTAL (test code = 16 mmol/L 23-31 L 3990008887) AGAP (test code = 2-16 6282895002) BUN (test code = 14 mg/dL 7-23 1060106050) GLUCOSE (test code = 189 mg/dL 70-110 H 9339279859) CREATININE (test code = 0.66 mg/dL 0.60-1.25 5401123838) TOTAL BILI (test code = 0.8 mg/dL 0.1-1.0 4787179934) CALCIUM (test code = 8.3 mg/dL 8.6-10.6 L 2360644663) T PROTEIN (test code = 6.5 g/dL 6.3-8.2 4860202908) ALBUMIN (test code = 3.3 g/dL 3.5-5.0 L 1860811795) ALK PHOS (test code = 136 U/L 34-122 H 9516221856) ALTv (test code = 18 U/L 5-50 1742-6) AST(SGOT) (test code = 26 U/L 13-40 9473351105) eGFR (test code = mL/min/1.73m2 5652444092) DIANE (test code = DIANE) Association of [...] tests). Lab Interpretation Abnormal (test code = 26800-1) [facility] WITH [id number] 20:33:30 Test Item Value Reference Range Interpretation Comments WBC (test code = See_Comment [Automated 9830-2) message] The sy stem which generated this result transmitted reference range : 4.20 - 10.70 10*3/?L. The reference range was not used to interpret this result as normal/abnormal . RBC (test code = See_Comment [Automated 314-8) message] The sy stem which generated this [...] RDW-SD (test code = 45.4 fL 38.5-51.6 86804-7) RDW-CV (test code = 14.2 % 12.1-15.4 788-0) PLT (test code = See_Comment [Automated 777-3) message] The sy stem which generated this result transmitted reference range : 150 - 328 10*3/ ?L. The reference r batsheva was not used to interpret this result as normal/abnormal . MPV (test code = 9.8 fL 9.8-13.0 88131-1) NRBC/100 WBC (test See_Comment [Automat ed code = 7168155612) message] The system which generated this result transmitted reference range : 0.0 - 10.0 /100 WBCs. The refer ence range was not u sed to interpret th is result as normal/abnormal . NRBC x10^3 (test code <0.01 See_Comment [Auto mated = 3217670067) message] The s ystem which generated this result transmitted reference range : 10*3/?L. The reference range was not used to interpret this result as normal/abnormal . GRAN MAT (NEUT) % 62.3 % (test code = 770-8) IMM GRAN % (test code 0.80 % = 0060245839) LYMPH % (test code = 25.1 % 736-9) MONO % (test code = 6.7 % 5905-5) EOS % (test code = 4.7 % 713-8) BASO % (test code = 0.4 % 706-2) GRAN MAT x10^3(ANC) 4.76 10*3/uL 1.99-6.95 (test code = 4739366824) IMM GRAN x10^3 (test 0.06 10*3/uL 0.00-0.06 code = 2700001768) LYMPH x10^3 (test code 1.92 10*3/uL 1.09-3.23 = 731-0) MONO x10^3 (test code 0.51 10*3/uL 0.36-1.02 = 742-7) EOS x10^3 (test code = 0.36 10*3/uL 0.06-0.53 711-2) BASO x10^3 (test code 0.03 10*3/uL 0.01-0.09 = 704-7) Lab Interpretation Abnormal (test code = 40318-1) [facility] ([facility])2021-11-09 20:27:39 Test Item Value Reference Range Interpretation Comments POCT GLU (test code = 0197561620) 190 mg/dL 70-110 H Lab Interpretation (test code = Abnormal 13185-9) [facility] [id number] 11:52:00 Test Item Value Reference Range Interpretation Comments GLUCOSE BEDSIDE TESTING (test code = 92 mg/dL 70-110 N GLUBED) GLUCOSE BEDSIDE [id number] 08:05:00 Test Item Value Reference Range Interpretation Comments GLUCOSE BEDSIDE TESTING (test code = 62 mg/dL 70-110 L GLUBED) GLUCOSE BEDSIDE [id number] 20:40:00 Test Item Value Reference Range Interpretation Comments GLUCOSE BEDSIDE TESTING (test code 105 mg/dL 70-110 N = GLUBED) GLUCOSE BEDSIDE [id number] 17:02:00 Test Item Value Reference Range Interpretation Comments GLUCOSE BEDSIDE TESTING (test code 128 mg/dL 70-110 H = GLUBED) GLUCOSE BEDSIDE [id number] 16:37:00 Test Item Value Reference Range Interpretation Comments GLUCOSE BEDSIDE TESTING (test code 105 mg/dL 70-110 N = GLUBED) GLUCOSE BEDSIDE [id number] 08:17:00 Test Item Value Reference Range Interpretation Comments GLUCOSE BEDSIDE TESTING (test code = 88 mg/dL 70-110 N GLUBED) GLUCOSE BEDSIDE [id number] 19:45:00 Test Item Value Reference Range Interpretation Comments GLUCOSE BEDSIDE TESTING (test code 115 mg/dL 70-110 H = GLUBED) GLUCOSE BEDSIDE [id number] 18:13:00 Test Item Value Reference Range Interpretation Comments GLUCOSE BEDSIDE TESTING (test code = 74 mg/dL 70-110 N GLUBED) GLUCOSE BEDSIDE [id number] 17:29:00 Test Item Value Reference Range Interpretation Comments GLUCOSE BEDSIDE TESTING (test code = 44 mg/dL 70-110 LL GLUBED) GLUCOSE BEDSIDE [id number] 12:26:00 Test Item Value Reference Range Interpretation Comments GLUCOSE BEDSIDE TESTING (test code = 96 mg/dL 70-110 N GLUBED) GLUCOSE BEDSIDE [id number] 08:21:00 Test Item Value Reference Range Interpretation Comments GLUCOSE BEDSIDE TESTING (test code = 77 mg/dL 70-110 N GLUBED) GLUCOSE BEDSIDE [id number] 20:12:00 Test Item Value Reference Range Interpretation Comments GLUCOSE BEDSIDE TESTING (test code = 91 mg/dL 70-110 N GLUBED) GLUCOSE BEDSIDE [id number] 16:42:00 Test Item Value Reference Range Interpretation Comments GLUCOSE BEDSIDE TESTING (test code 106 mg/dL 70-110 N = GLUBED) GLUCOSE BEDSIDE [id number] 11:49:00 Test Item Value Reference Range Interpretation Comments GLUCOSE BEDSIDE TESTING (test code = 89 mg/dL 70-110 N GLUBED) GLUCOSE BEDSIDE [id number] 08:22:00 Test Item Value Reference Range Interpretation Comments GLUCOSE BEDSIDE TESTING (test code = 68 mg/dL 70-110 L GLUBED) GLUCOSE BEDSIDE [id number] 20:05:00 Test Item Value Reference Range Interpretation Comments GLUCOSE BEDSIDE TESTING (test code 137 mg/dL 70-110 H = GLUBED) GLUCOSE BEDSIDE [id number] 16:42:00 Test Item Value Reference Range Interpretation Comments GLUCOSE BEDSIDE TESTING (test code = 98 mg/dL 70-110 N GLUBED) GLUCOSE BEDSIDE [id number] 11:13:00 Test Item Value Reference Range Interpretation Comments GLUCOSE BEDSIDE TESTING (test code 118 mg/dL 70-110 H = GLUBED) GLUCOSE BEDSIDE [id number] 07:37:00 Test Item Value Reference Range Interpretation Comments GLUCOSE BEDSIDE TESTING (test code 140 mg/dL 70-110 H = GLUBED) COMPREHENSIVE METABOLIC [id number] 06:34:00 Test Item Value Reference Range Interpretation [...] TOTAL (test code = ALKP) CBC W/AUTO [id number] 06:25:00 Test Item Value Reference Range Interpretation [...] DIFF/SCN CRITERIA = MDIFF) - CT ABDOMEN [id number] 03:09:00 [facility] : 1960 Sex: M Name: FAITH VANCE Anderson : 1960 Age/S: 60 / M [address] [place] Unit #: [id number] Loc: [place] [address] Phys: Fede Carrera DO Acct: [id number] Dis Date: Status: ADM IN PHONE #: [phone] Exam Date: 10/31/20201919 FAX #: Reason: NAUSEA, VOMITING, DIARRHEA EXAMS: CPT: [id number] CT ABDOMEN W/CONTRAST 56456 EXAM: - CT ABDOMEN W/CONTRAST LOCATION: H61 [...] PAGE 1 Signed Report (CONTINUED) [facility] 1960 Age/S: 60 / M [address] [address] [employer] [place] Unit #: [id number] Loc: [place] [address] Phys: Doramargareth Fede mcclellan DO Acct: [id number] Dis Date: Status: ADM IN PHONE #: [phone] Exam Date: 10/31/20201919 FAX #: Reason: NAUSEA, VOMITING, DIARRHEA EXAMS: CPT: [id number] CT ABDOMEN W/CONTRAST 23531 <Continued> small bowel wall thickening. The appendix [...] Rohan(R) CTDI: DLP: Trnscb Date/Time: 11/01/2020 (308) t.KATHRYNR.TH15 Orig Print D/T: S: 11/01/2020 (031) PAGE 2 Signed ReportGLUCOSE BEDSIDE [id number] 21:34:00 Test Item Value Reference Range Interpretation Comments GLUCOSE BEDSIDE TESTING (test code 161 mg/dL 70-110 H = GLUBED) GLUCOSE BEDSIDE [id number] 17:32:00 Test Item Value Reference Range Interpretation Comments GLUCOSE BEDSIDE TESTING (test code 136 mg/dL 70-110 H = GLUBED) - XR ABDOMEN 1 [id number] 12:44:00 [facility] 1960 Sex: M Name: FAITH VANCE [facility] : 1960 Age/S: 60 / M [id number] [place] Unit #: [id number] Loc: [place] [address] Phys: Fede Carrera DO Acct: [id number] Dis Date: Status: ADM IN PHONE #:[phone] Exam Date: 10/31/2020 1227 FAX #: Reason: Abdominal pain in the lower qudarants EXAMS: CPT: [id number] XR ABDOMEN 1 V 14865 Fluoro Time: DAP (Gy m2): Air Kerma [...] change in the spine. No apparent urologic calcification.IMPRESSION: Residual barium in the colon. Mild air-filled prominence of a few small bowel loops. Overall nonspecific appearance. at 1244 Reported and signed by: Ananth Schmidt M.D. CC: Nika Martin MD; Fede Carrera DO PAGE1 Signed Report Name: FAITH VANCE [facility] : 1960 Age/S: 60 / M [address] [place] Unit #: [id number] Loc: [place] [address] Phys: Fede Carrera DO Acct: [id number] Dis Date: Status: ADM IN PHONE #: [phone] Exam Date: 10/31/2020 1227 FAX #: Reason: Abdominal pain in the lower qudarants EXAMS: CPT: [id number] XR ABDOMEN 1 V 32553 Fluoro Time: DAP (Gy m2): Air Kerma (mGy): <Continued> Technologist: Cecelia Arias RT(R) Trnscb Date/Time: 10/31/2020 (4310) tRITA.[email or web address] Orig Print D/T: S: 10/31/2020 (0472) PAGE 2 Signed Report GLUCOSE BEDSIDE [id number] 11:58:00 Test Item Value Reference Range Interpretation Comments GLUCOSE BEDSIDE TESTING (test code 105 mg/dL 70-110 N = GLUBED) GLUCOSE BEDSIDE [id number] 08:01:00 Test Item Value Reference Range Interpretation Comments GLUCOSE BEDSIDE TESTING (test code 106 mg/dL 70-110 N = GLUBED) [id number] 22:46:00 Test Item Value Reference Range Interpretation [...] yby method. Completed by Nursing: NOGLUCOSE BEDSIDE [id number] 21:55:00 Test Item Value Reference Range Interpretation Comments GLUCOSE BEDSIDE TESTING (test code 119 mg/dL 70-110 H = GLUBED) [id number] 19:33:00 Test Item Value Reference Range Interpretation [...] method. Completed by Nursing: NOCoronavirus 2019 nCoV [id number] 18:46:00 Test Item Value Reference Range Interpretation Comments Coronavirus 2019 nCoV Negative Negative Per ma nufacturer, Bedside (test code = negativ e results should [id number]) be treated aspresumptive a nd, if inconsistent [...] with COVID-19. Spec Comments: NNT PRO-BRAIN NATRIURETIC [id number] 15:51:00 Test Item Value Reference Range Interpretation Comments NT PRO-BRAIN NATRIURETIC PEPTI 6079 PG/ML 0-100 H (test code = PROBNP) Completed by Nursing: [id number] 15:51:00 Test Item Value Reference Range Interpretation [...] yby method. Completed by Nursing: NOBASIC METABOLIC [id number] 15:51:00 Test Item Value Reference Range Interpretation [...] Completed by Nursing: NO- XR CHEST 1 [id number] 15:42:00 [facility] 1960 Sex: M Name: FAITH VANCE [facility] : 1960 Age/S: 60 / M [address] [place] Unit #: [id number] Loc: [place] [address] Phys: Todd Jacobo MD Acct: [id number] Dis Date: Status: PRE ER PHONE #:[phone] Exam Date: 10/30/2020 1528 FAX #: Reason: chest pain EXAMS: CPT: [id number] XR CHEST 1 V 18209 Fluoro Time: DAP (Gy m2): Air Kerma [...] PAGE 1 Signed Report Name: FAITH VANCE [facility] : 1960 Age/S: 60 / M [address] [place] Unit #: [id number] Loc: [place] [address] Phys: Todd Jacobo MD Acct: [id number] Dis Date: Status: PRE ER PHONE #: [phone] Exam Date: 10/30/2020 1524 FAX #: Reason: chest pain EXAMS: CPT: [id number] XR CHEST 1 V 01163 Fluoro Time: DAP (Gy m2): Air Kerma (mGy): <Continued> Technologist: Kim Andrews RT(R)(CT) Trnscb Date/Time: 10/30/2020 (1542) t.SDR.RB24 Orig Print D/T: S: 10/30/2020 (5842) PAGE 2 Signed ReportCBC W/O DIFF 2020-10-30 [...] 9.70 fL 7.0-9.6 H MPV) BASIC METABOLIC [id number] 21:42:00 Test Item Value Reference Range Interpretation [...] 9.6 mg/dL 8.0-10.5 N CA) HEPATIC FUNCTION [id number] 21:42:00 Test Item Value Reference Range Interpretation [...] 114 IUnit/L 20-125 N code = ALKP) [id number] 21:42:00 Test Item Value Reference Range Interpretation Comments LIPASE (test code = LIP) 70 U/L 13-57 H [id number] 21:42:00 Test Item Value Reference Range Interpretation [...] by method. UA RFLX MICR CULT IF [id number] 21:37:00 Test Item Value Reference Range Interpretation [...] INDWELLING CATH (CEDENO)Cath Status: Under 72 hoursPROTHROMBIN [id number] 21:35:00 Test Item Value Reference Range Interpretation [...] (to prevent recurrent infar ct). THROMBOPLASTIN TIME [id number] 21:35:00 Test Item Value Reference Range Interpretation Comments THROMBOPLASTIN TIME 41.7 Seconds 25.0-39.5 H Therape utic Range: PARTIAL (test code = 50.4 - 88.3 Seconds PTT) Effective 09/04/2018 CBC W/AUTO [id number] 21:29:00 Test Item Value Reference Range Interpretation [...] = MDIFF) - CT ABD PELVIS W/O [id number] 20:49:00 [facility] : 1960 Sex: M Name: FAITH VANCE [facility] [place] : 1960 Age/S: 60 / M [address] [place] [address] Unit #: [id number] Loc: [place] [address] Phys: Gisel Eugene 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 Contrast - [...] or loosening. Small bilateral fat-containing hernias. No ventral hernias. PAGE 1 Signed Report (CONTINUED) Name: FAITH VANCE [facility] : 1960 Age/S: 60 / M [address] [place] [address] Blvd Unit #: [id number] Loc: [place], [place] [address] Phys: Gisel Eugene Acct: [id number] Dis Date: Status: REG ER PHONE #: [phone] Exam Date: 08/23/20202024 FAX #: [phone] Reason: DIFFUSE ABDOMINAL PAIN EXAMS: CPT CODE: [id number] CT ABD PELVIS W/O CONT 50290 <Continued> Peritoneum/Other: No extraluminal air. No extraluminal [...] Electronically Signed by Maria Eugenia Katz on 0 08/23/2020 at 2048 Reported and signed by: Irene Katz M.D. CC: Alf Hope DO; Nika Martin MD; Gisel Eugene Technologist:Cassandra Anne RT(R)(CT) CTDI: DLP: Trnscb Date/Time: 08/23/2020 (2048) RubinaR.VB9 Orig Print D/T: S: 08/23/2020 (2051) PAGE 2 Signed ReportBASIC METABOLIC [id number] 07:51:00 Test Item Value Reference Range Interpretation [...] Modifi ed MDRD (test code = GFR) formula.[facility] kidney disease is defined as eith er kidney damageor GFR <60 mL/min/1.73 m2 for >3 months. [Automated mess age] The system [employer] generated this result transmitted ref erence range: >=60. Th e reference range was not used to int erpret this result as normal/abnormal . 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 [facility] [id number] 11:58:00 Test Item Value Reference Range Interpretation Comments GLUBED (test code = 149 MG/DL 70-110 H Performe d by certified GLUBED) 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 [facility] BASIC METABOLIC [id number] 08:00:00 Test Item Value Reference Range Interpretation [...] 9.9 mg/dL 8.0-10.5 N CA) CBC W/AUTO [id number] 07:08:00 Test Item Value Reference Range Interpretation [...] DIFF REQUIRED (test code NO = MDIFF) [id number] 05:21:00 Test Item Value Reference Range Interpretation Comments GLUBED (test code = 150 MG/DL 70-110 H Performe d by certified GLUBED) 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 [facility] [id number] 21:13:00 Test Item Value Reference Range Interpretation Comments GLUBED (test code = 129 MG/DL 70-110 H Performe d by certified GLUBED) 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 [facility] [id number] 16:48:00 Test Item Value Reference Range Interpretation Comments GLUBED (test code = 116 MG/DL 70-110 H Performe d by certified GLUBED) 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 [facility] [id number] 12:18:00 Test Item Value Reference Range Interpretation Comments GLUBED (test code = 136 MG/DL 70-110 H Performe d by certified GLUBED) 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 [facility] [id number] 12:18:00 Test Item Value Reference Range Interpretation Comments GLUBED (test code = 151 MG/DL 70-110 H Performe d by certified GLUBED) 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 [facility] CBC W/AUTO [id number] 07:32:00 Test Item Value Reference Range Interpretation [...] (test code NO = MDIFF) BASIC METABOLIC [id number] 07:29:00 Test Item Value Reference Range Interpretation [...] code = 9.0 mg/dL 8.0-10.5 N CA) [id number] 05:19:00 Test Item Value Reference Range Interpretation Comments GLUBED (test code = 135 MG/DL 70-110 H Performe d by certified GLUBED) 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 [facility] [id number] 20:31:00 Test Item Value Reference Range Interpretation Comments GLUBED (test code = 189 MG/DL 70-110 H Performe d by certified GLUBED) 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 [facility] [id number] 17:41:00 Test Item Value Reference Range Interpretation Comments GLUBED (test code = 140 MG/DL 70-110 H Performe d by certified GLUBED) 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 [facility] - CTA CHEST FOR [id number] 13:48:00 [facility] 1960 Sex: M Name: FAITH VANCE [facility] : 1960 Age/S: 60 / M [address] [place] [address] Unit #: [id number] Loc: [place] [address] Phys: KenneyjiGina [employer]TER Acct: [id number] Dis Date: Status: ADM IN PHONE #: [phone] Exam Date: 08/12/2020911 FAX #: [phone] Reason: CP, elevated D-dimer EXAMS: CPT CODE: [id number] [place] [address] PROCEDURE: CTA CHEST INDICATION: CP, elevated D-dimer; [...] [facility] 1960 Age/S: 60 / M [address] [place] [address] Blvd Unit #: [id number] Loc: [place] [address] Phys: Agnes Gonzalezfer [employer] FI[employer]FIGHTER Acct: [id number] Dis Date: Status: ADM IN PHONE #: [phone] Exam Date: 08/12/2020 09 FAX #: [phone] Reason: CP, elevated D-dimer EXAMS: CPT CODE: [id number] [place] [address] <Continued> contrast enhancement. No acute abnormality demonstrated. MUSCULOSKELETAL: Healed median sternotomy. No acute skeletal abnormality. IMPRESSION: 1. Negative for pulmonary embolic disease within limitations noted. 2. Atherosclerosis. 3. Coronary arterial calcifications with prior coronary arterial stents and CABG. 4. Interstitial edema. No consolidation. 5. Small bilateral pleural effusions. SL: [id number] at 1348 Reported and signed by: Christiano Piña M.D. 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 [facility] CBC W/AUTO [id number] 09:17:00 Test Item Value Reference Range Interpretation [...] (test code NO = MDIFF) BASIC METABOLIC [id number] 08:28:00 Test Item Value Reference Range Interpretation [...] code = 8.3 mg/dL 8.0-10.5 N CA) [id number] 08:28:00 Test Item Value Reference Range Interpretation Comments PHOSPHOROUS (test code = PHOS) 3.6 MG/DL 2.5-4.9 N [id number] 08:28:00 Test Item Value Reference Range Interpretation Comments MAGNESIUM (test code = MAG) 1.94 mg/dL 1.80-2.40 N [id number] 07:16:00 Test Item Value Reference Range Interpretation Comments GLUBED (test code = 170 MG/DL 70-110 H Performe d by certified GLUBED) 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 [facility] [id number] 07:16:00 Test Item Value Reference Range Interpretation Comments GLUBED (test code = 137 MG/DL 70-110 H Performe d by certified GLUBED) 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 [facility] [id number] 17:01:00 Test Item Value Reference Range Interpretation Comments GLUBED (test code = 88 MG/DL 70-110 N Performe d by certified GLUBED) 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 [facility] [id number] 16:56:00 Test Item Value Reference Range Interpretation Comments ACT-ISTAT (test code 186 SEC 74-137 H Perform ed by certified = ACTI) 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 [facility] [id number] 15:03:00 Test Item Value Reference Range Interpretation Comments ACT-ISTAT (test code 235 SEC 74-137 H Perform ed by certified = ACTI) 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 [facility] [id number] 11:33:00 Test Item Value Reference Range Interpretation Comments GLUBED (test code = 97 MG/DL 70-110 N Performe d by certified GLUBED) 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 [facility] [id number] 06:54:00 Test Item Value Reference Range Interpretation Comments GLUBED (test code = 136 MG/DL 70-110 H Performe d by certified GLUBED) 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 [facility] BASIC METABOLIC [id number] 06:00:00 Test Item Value Reference Range Interpretation [...] COMMENTS: To be done morning of Heart [id number] 06:00:00 Test Item Value Reference Range Interpretation Comments PHOSPHOROUS (test code = PHOS) 4.1 MG/DL 2.5-4.9 N COMMENTS: To be done morning of Heart [id number] 06:00:00 Test Item Value Reference Range Interpretation Comments MAGNESIUM (test code = MAG) 1.74 mg/dL 1.80-2.40 L COMMENTS: To be done morning of Heart CathTHROMBOPLASTIN TIME [id number] 05:55:00 Test Item Value Reference Range Interpretation Comments THROMBOPLASTIN TIME 37.9 Seconds 25.0-39.5 N Therape utic Range: PARTIAL (test code = 50.4 - 88.3 Seconds PTT) Effective 09/04/2018 CBC W/AUTO [id number] 05:44:00 Test Item Value Reference Range Interpretation [...] COMMENTS: To be done morning of Heart [id number] 05:44:00 Test Item Value Reference Range Interpretation Comments GLUBED (test code = 92 MG/DL 70-110 N Performe d by certified GLUBED) 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 [facility] HGBA1C%2020-08-10 17:22:00 Test Item Value Reference Range Interpretation Comments HGBA1C% (test code = HGBA1C%) 6.6 %A1C 4.8-6.0 H [id number] 17:17:00 Test Item Value Reference Range Interpretation Comments GLUBED (test code = 118 MG/DL 70-110 H Performe d by certified GLUBED) 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 COVID 19 Asymptomatic IH [id number] 11:35:00 Test Item Value Reference Range Interpretation [...] y tests. COMMENTS: If not done this [id number] 11:31:00 Test Item Value Reference Range Interpretation [...] titative results may babak y by method. [id number] 11:28:00 Test Item Value Reference Range Interpretation [...] to interpret this result as normal/abnormal . [id number] 10:48:00 Test Item Value Reference Range Interpretation Comments GLUBED (test code = 158 MG/DL 70-110 H Performe d by certified GLUBED) 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 [facility] B-TYPE NATRIURETIC [id number] 08:19:00 Test Item Value Reference Range Interpretation Comments B-TYPE NATRIURETIC PEPTIDE (test 508.0 PG/ML 0-100 H code = BNP) BASIC METABOLIC [id number] 08:11:00 Test Item Value Reference Range Interpretation [...] 9.1 mg/dL 8.0-10.5 N CA) HEPATIC FUNCTION [id number] 08:11:00 Test Item Value Reference Range Interpretation [...] 174 IUnit/L 20-125 H code = ALKP) [id number] 08:11:00 Test Item Value Reference Range Interpretation Comments MAGNESIUM (test code = MAG) 1.80 mg/dL 1.80-2.40 N [id number] 08:11:00 Test Item Value Reference Range Interpretation [...] may babak y by method. BASIC METABOLIC [id number] 08:09:00 Test Item Value Reference Range Interpretation [...] code = CA) mg/dL 8.0-10.5 HEPATIC FUNCTION [id number] 08:09:00 Test Item Value Reference Range Interpretation Comments TOTAL PROTEIN (test code = PROT) g/dL 6.4-8.2 ALBUMIN (test code = ALB) g/dL 3.4-5.0 BILIRUBIN TOTAL (test code = BILT) mg/dL 0.0-1.0 BILIRUBIN DIRECT (test code = BILD) MG/DL 0.0-0.30 SGOT/AST (test code = AST) IUnit/L 15-37 SGPT/ALT (test code = ALT) IUnit/L 30-65 ALKALINE PHOSPHATASE TOTAL (test IUnit/L 20-125 code = ALKP) [id number] 08:09:00 Test Item Value Reference Range Interpretation Comments MAGNESIUM (test code = MAG) mg/dL 1.80-2.40 [id number] 08:09:00 Test Item Value Reference Range Interpretation [...] results may babak y by method. PROTHROMBIN [id number] 08:06:00 Test Item Value Reference Range Interpretation [...] (to prevent recurrent infar ct). THROMBOPLASTIN TIME [id number] 08:06:00 Test Item Value Reference Range Interpretation Comments THROMBOPLASTIN TIME 44.5 Seconds 25.0-39.5 H Therape utic Range: PARTIAL (test code = 50.4 - 88.3 Seconds PTT) Effective 09/04/2018 CBC W/AUTO [id number] 07:58:00 Test Item Value Reference Range Interpretation [...] NO = MDIFF) - XR CHEST 1 [id number] 07:57:00 [facility] : 1960 Sex: M FAX: Todd Jacobo MD [phone] [facility]: St: REG FAX: Martínez Dash NP [phone] Name: RAJIVFAITH [facility] : 1960 Age/S: 60/M [address] [place] [address] Unit #: [id number] Loc: [place] [address] Phys: Martínez Dash NP Acct: [id number] Dis Date: Status: REG ER PHONE #: [phone] Exam Date: 08/10/2020 [facility] FAX #: [phone] Reason: Chest Pain EXAMS: CPT CODE: [id number] XR CHEST 1 V 27909 Chest single view 08/10/2020 HISTORY: Chest pain. Comparison is made to 05/21/2018 FINDINGS: Pacemaker and midline sternotomy wires are stable. The lungs are hypoinflated. No consolidation or pleural effusion is present. No vascular congestion or interstitial edema is present. Heart size is mildlyenlarged. Aorta is unchanged. IMPRESSION: Hypoinflated lungs. No acute cardiopulmonary process. SL: [id number] at 0757 Reported and signed by: Khai Kruse M.D. CC: Todd Jacobo MD; Martínez Dash NP Technologist: RT Zi(Tim) Trnscrd Date/Time/By: 08/10/2020 (075) : By: [email or web address] Orig Print D/T: S: 08/10/2020 (0800) PAGE 1 Signed Report COMPREHENSIVE METABOLIC [id number] 18:02:00 Test Item Value Reference Range Interpretation [...] 50-136 H TOTAL (test code = ALKP) [id number] 18:02:00 Test Item Value Reference Range Interpretation Comments AMYLASE (test code = SERGIO) 82 Unit/L 25-115 N [id number] 18:02:00 Test Item Value Reference Range Interpretation Comments LIPASE (test code = LIP) 185 Unit/L 114-286 N COMPREHENSIVE METABOLIC [id number] 17:56:00 Test Item Value Reference Range Interpretation [...] TOTAL Unit/L 50-136 (test code = ALKP) [id number] 17:56:00 Test Item Value Reference Range Interpretation Comments AMYLASE (test code = SERGIO) Unit/L 25-115 [id number] 17:56:00 Test Item Value Reference Range Interpretation Comments LIPASE (test code = LIP) 185 Unit/L 114-286 N CBC W/AUTO [id number] 17:46:00 Test Item Value Reference Range Interpretation [...] CRITERIA MDIFF) - CT ABD PELVIS W/O [id number] 17:46:00 Name: FAITH VANCE [facility] : 1960 Age/S: 58 / M [address] [place] Unit #: [id number] Loc: [place] [address] Phys: Nila Chester MD Acct: [id number] Dis Date: Status: REG ER PHONE #: [phone] Exam Date: 01/03/2019 1730 FAX #: Reason: llq EXAMS: CPT: [id number] CT ABD PELVIS W/O CONT 40426 Location of dictation: B2 CT abdomen and [...] mA) was utilized in compliance with ACR [employer] with DLP of 448.3 mGy-cm. COMPARISON: 09/14/2017 [...] 1 Signed Report (CONTINUED) Name: FAITH VANCE [facility] [place] : 1960 Age/S: 58 / M [address] [facility] [employer] [place] Unit #: [id number] Loc: [place] [address] Phys: Nila Chester MD Acct: [id number] Dis Date: Status: REG ER PHONE #: [phone] Exam Date: 01/03/2019 1731 FAX #: Reason: llq EXAMS: CPT: [id number] CT ABD PELVIS W/O CONT 20783 <Continued> at 1746 Reported and signed by: Renuka Willett M.D. CC: Nila Chester MD Technologist:Tavon Jurado, RT(R)(CT)(MRI) CTDI: DLP: Trnscb Date/Time: 01/03/2019 (182) JhonPXC Orig Print D/T: S: 01/03/2019 (5137) PAGE 2 Signed ReportBedside [id number] 11:47:00 Test Item Value Reference Range Interpretation Comments Bedside Glucose (test code = 06163-0) 155 70-120 H Meter ID: [id number] [facility] & [facility] Rockodium [id number] 08:31:00 Test Item Value Reference Range Interpretation Comments Sodium Level (test code = 2951-2) 139 136-145 [facility]ervillePotassium [id number] 08:31:00 Test Item Value Reference Range Interpretation Comments Potassium Level (test code = 2823-3) 4.0 3.5-5.1 [facility]ervilleChloride [id number] 08:31:00 Test Item Value Reference Range Interpretation Comments Chloride Level (test code = 2075-0) 106 98-107 [facility]ugervilleCarbon Dioxide [id number] 08:31:00 Test Item Value Reference Range Interpretation Comments Carbon Dioxide Level (test code = 2027-9) [facility]flugervilleAnion [id number] 08:31:00 Test Item Value Reference Range Interpretation Comments Anion Gap (test code = 59320-8) 12.0 8-16 [facility]flugervilleBlood Urea [id number] 08:31:00 Test Item Value Reference Range Interpretation Comments Blood Urea Nitrogen (test code = 12-14 3094-0) [facility]ervilleCreatinine2018-06-08 08:31:00 Test Item Value Reference Range Interpretation Comments Creatinine (test code = 2160-0) 0.72 0.72-1.25 [facility]ervilleBUN/Creatinine [id number] 08:31:00 Test Item Value Reference Range Interpretation Comments BUN/Creatinine Ratio (test code = 11-13 3097-3) [facility] PflugervilleEstimat Glomerular Filtration [id number] 08:31:00 Test Item Value Reference Range Interpretation Comments Estimat Glomerular Filtration Rate 60- >60 (test code = 76563-3) Ranges were taken from the National Kidney Disease Education Program and the National Kidney Foundation literature.Reference ranges:60 or greater: Zafzhm78- 59 (for 3 consecutive months): Chronic kidneydisease 15 or less: Kidney failure [facility]flugervilleGlucose Wkdue4565-39-30 08:31:00 Test Item Value Reference Range Interpretation Comments Glucose Level (test code = KPD9745) 195 74-118 H [facility]ervilleCalcium [id number] 08:31:00 Test Item Value Reference Range Interpretation Comments Calcium Level (test code = 63967-1) 9.0 8.4-10.2 [facility]ervilleWhite Blood [id number] 08:12:00 Test Item Value Reference Range Interpretation Comments White Blood Count (test code = 6690-2) 6.06 4.8-10.8 [facility]ugervilleRed Blood [id number] 08:12:00 Test Item Value Reference Range Interpretation Comments Red Blood Count (test code = 789-8) 4.22 4.3-5.7 L [facility]ervilleHemoglobin2018-06-08 08:12:00 Test Item Value Reference Range Interpretation Comments Hemoglobin (test code = 12047-9) 12.5 14.0-18.0 L [facility]ervilleHematocrit2018-06-08 08:12:00 Test Item Value Reference Range Interpretation Comments Hematocrit (test code = 4544-3) 36.2 38.2-49.6 L [facility] PflugervilleMean Corpuscular Yitmki5862-06-87 08:12:00 Test Item Value Reference Range Interpretation Comments Mean Corpuscular Volume (test code = 85.8 81-99 787-2) [facility]ervilleMean Corpuscular Jooakukzhp3472-38-59 08:12:00 Test Item Value Reference Range Interpretation Comments Mean Corpuscular Hemoglobin (test code 29.6 28-32 = 785-6) [facility] PflugervilleMean Corpuscular Hemoglobin Xrdkexy3930-55-78 08:12:00 Test Item Value Reference Range Interpretation Comments Mean Corpuscular Hemoglobin Concent 34.5 31-35 (test code = 786-4) [facility]ervilleRed Cell Distribution [id number] 08:12:00 Test Item Value Reference Range Interpretation Comments Red Cell Distribution Width (test code 14.2 11.7-14.4 = 26108-5) [facility] PflugervillePlatelet [id number] 08:12:00 Test Item Value Reference Range Interpretation Comments Platelet Count (test code = 777-3) 263 140-360 [facility]ervilleNeutrophils (%) (Auto)2017-10-27 08:12:00 Test Item Value Reference Range Interpretation Comments Neutrophils (%) (Auto) (test code = 51.2 38.7-80.0 25643-1) [facility]ervilleLymphocytes (%) (Auto)2017-10-27 08:12:00 Test Item Value Reference Range Interpretation Comments Lymphocytes (%) (Auto) (test code = 33.7 18.0-39.1 736-9) [facility]ervilleMonocytes (%) (Auto)2017-10-27 08:12:00 Test Item Value Reference Range Interpretation Comments Monocytes (%) (Auto) (test code = 9.1 4.4-11.3 5905-5) [facility]ervilleEosinophils (%) (Auto)2017-10-27 08:12:00 Test Item Value Reference Range Interpretation Comments Eosinophils (%) (Auto) (test code = 4.8 0.0-6.0 713-8) [facility]ervilleBasophils (%) (Auto)2017-10-27 08:12:00 Test Item Value Reference Range Interpretation Comments Basophils (%) (Auto) (test code = 0.7 0.0-1.0 706-2) [facility]flugervilleIM GRANULOCYTES %2017-10-27 08:12:00 Test Item Value Reference Range Interpretation Comments IM GRANULOCYTES % (test code = IM 0.5 0.0-1.0 GRANULOCYTES %) [facility]ervilleNeutrophils # (Auto)2017-10-27 08:12:00 Test Item Value Reference Range Interpretation Comments Neutrophils # (Auto) (test code = 3.1 2.1-6.9 751-8) [facility]ervilleLymphocytes # (Auto)2017-10-27 08:12:00 Test Item Value Reference Range Interpretation Comments Lymphocytes # (Auto) (test code = 2.0 1.0-3.2 34378-2) [facility]ervilleMonocytes # (Auto)2017-10-27 08:12:00 Test Item Value Reference Range Interpretation Comments Monocytes # (Auto) (test code = 742-7) 0.6 0.2-0.8 [facility]ervilleEosinophils # (Auto)2017-10-27 08:12:00 Test Item Value Reference Range Interpretation Comments Eosinophils # (Auto) (test code = 0.3 0.0-0.4 711-2) [facility]ervilleBasophils # (Auto)2017-10-27 08:12:00 Test Item Value Reference Range Interpretation Comments Basophils # (Auto) (test code = 704-7) 0.0 0.0-0.1 [facility] PflugervilleAbsolute Immature Granulocyte ([id number] 08:12:00 Test Item Value Reference Range Interpretation Comments Absolute Immature Granulocyte (auto 0.03 0-0.1 (test code = Absolute Immature Granulocyte (auto) [facility] PflugervilleCreatine Kinase [id number] 15:14:00 Test Item Value Reference Range Interpretation Comments Creatine Kinase MB (test code = 3.90 0-5.0 67985-9) [facility]flugervilleTroponin [id number] 15:14:00 Test Item Value Reference Range Interpretation Comments Troponin I (test code = JIJ3409) 0.054 0-0.300 [facility] PflugervilleCreatine [id number] 15:07:00 Test Item Value Reference Range Interpretation Comments Creatine Kinase (test code = 2157-6) 297 30-200 H [facility]flugervilleHemoglobin A1c Zrudlkw4263-16-10 08:04:00 Test Item Value Reference Range Interpretation Comments Hemoglobin A1c Percent (test code = 12.6 4.0-7.0 H Hemoglobin A1c Percent) [facility]ervilleTriglycerides Gbbat7119-79-00 06:57:00 Test Item Value Reference Range Interpretation Comments Triglycerides Level (test code = 200 0-149 H 2571-8) [facility]ervilleCholesterol [id number] 06:57:00 Test Item Value Reference Range Interpretation Comments Cholesterol Level (test code = 2093-3) 239 0-199 H Less than 200 mg/dL Low Sowp594 - 239 mg/dL Borderline Xhiu416 mg/dl and greater High RiskB[facility] – PflugervilleLDL Qlignuqelvw7257-42-67 06:57:00 Test Item Value Reference Range Interpretation Comments LDL Cholesterol (test code = 2089-1) 164 60-130 H [facility] PflugervilleHDL Gawvyudtjws1954-39-27 06:57:00 Test Item Value Reference Range Interpretation Comments HDL Cholesterol (test code = 2085-9) 35 40-60 L [facility]ervilleCholesterol/HDL Jmdgx6822-88-80 06:57:00 Test Item Value Reference Range Interpretation Comments Cholesterol/HDL Ratio (test code = 6.8 3.9-4.7 H 9830-1) [facility] PflugervilleUrine Opiates Cgzfir3147-40-78 16:18:00 Test Item Value Reference Range Interpretation Comments Urine Opiates Screen (test code = NEGATIVE NEGATIVE 24246-2) [facility] PflugervilleUrine Barbiturates Ndxxtm1658-23-17 16:18:00 Test Item Value Reference Range Interpretation Comments Urine Barbiturates Screen (test code NEGATIVE NEGATIVE = 440176400) [facility] PflugervilleUrine Phencyclidine Uoxzzm5544-04-04 16:18:00 Test Item Value Reference Range Interpretation Comments Urine Phencyclidine Screen (test NEGATIVE NEGATIVE code = 98912-1) [facility] PflugervilleUrine Amphetamines [id number] 16:18:00 Test Item Value Reference Range Interpretation Comments Urine Amphetamines Screen (test code NEGATIVE NEGATIVE = 33678-9) [facility]ervilleUrine Methamphetamines [id number] 16:18:00 Test Item Value Reference Range Interpretation Comments Urine Methamphetamines Screen (test NEGATIVE NEGATIVE code = Urine Methamphetamines Screen) [facility] PflugervilleUrine Benzodiazepines Uboblb4746-62-95 16:18:00 Test Item Value Reference Range Interpretation Comments Urine Benzodiazepines Screen (test NEGATIVE NEGATIVE code = 47621-5) [facility]ervilleUrine Cocaine Ictabk6198-55-91 16:18:00 Test Item Value Reference Range Interpretation Comments Urine Cocaine Screen (test code = NEGATIVE NEGATIVE 3398-5) [facility] P[facility]ervilleUrine Cannabinoids [id number] 16:18:00 Test Item Value Reference Range Interpretation Comments Urine Cannabinoids Screen (test code NEGATIVE NEGATIVE = 44767-8) THESE RESULTS ARE FOR MEDICAL TREATMENT ONLYTHIS REPORT CONTAINS UNCONFIRMED SCREENING RESULTS*POSITIVE RESULTS WILL BE CONFIRMED BY REFERENCE LAB UPON REQUEST CUT-OFFDRUG CLASS CONCENTRATION ng/mLAmphetamines 1000Methamphetamines 1000Cocaine 300Opiate 300Phencyclidine 25Cannabinoid 50Barbiturates 300Benzodiazepine 300Methadone 300[facility] PflugervilleUrine Methadone Mpxsry0924-28-39 16:18:00 Test Item Value Reference Range Interpretation Comments Urine Methadone Screen (test code = NEGATIVE NEGATIVE 03197-4) THESE RESULTS ARE FOR MEDICAL TREATMENT ONLYTHIS REPORT CONTAINS UNCONFIRMED SCREENING RESULTS*POSITIVE RESULTS WILL BE CONFIRMED BY REFERENCE LAB UPON REQUEST CUT-OFFDRUG CLASS CONCENTRATION ng/mLAmphetamines 1000Methamphetamines 1000Cocaine Metabolite 300Opiate 300Phencyclidine 55Hhmgluogyys58Toocqnegfirn 300Benzodiazepine 300Methadone 300[facility]Prothrombin [id number] 14:13:00 Test Item Value Reference Range Interpretation Comments Prothrombin Time (test code = 5902-2) 13.6 11.9-14.5 [facility]ervilleProthromb Time International [id number] 14:13:00 Test Item Value Reference Range Interpretation Comments Prothromb Time International Ratio 1.13 (test code = 6301-6) Oral Anticoagulant Therapy INR Values:1. Low Intensity Therapy 1.5 - 2.02. Moderate Intensity Therapy 2.0 - 3.03. High Intensity Therapy(1) 2.5 - 3.54. High Intensity Therapy(2) 3.0 - 4.05. Panic ValueINR > 5.0[facility]ervilleActivated Partial Thromboplast Cmte1697-19-70 14:13:00 Test Item Value Reference Range Interpretation Comments Activated Partial Thromboplast Time 27.6 23.8-35.5 (test code = 06535-0) [facility]ugervilleAlbumin2018-06-04 14:10:00 Test Item Value Reference Range Interpretation Comments Albumin (test code = 1751-7) 4.0 3.5-5.0 [facility]ervilleGlobulin2018-06-04 14:10:00 Test Item Value Reference Range Interpretation Comments Globulin (test code = 17773-8) 3.3 2.3-3.5 [facility]ervilleAlbumin/Globulin [id number] 14:10:00 Test Item Value Reference Range Interpretation Comments Albumin/Globulin Ratio (test code = 1.2 0.8-2.0 1759-0) [facility]ervilleAlkaline Xhqtsosnmtm2302-10-22 14:10:00 Test Item Value Reference Range Interpretation Comments Alkaline Phosphatase (test code = 109 40-150 6768-6) [facility]ugervilleB-Type Natriuretic Rcdiyah4646-65-89 14:10:00 Test Item Value Reference Range Interpretation Comments B-Type Natriuretic Peptide (test code = 92.8 0-100 71306-1) [facility]ervilleAmylase Xtdax8569-90-01 14:10:00 Test Item Value Reference Range Interpretation Comments Amylase Level (test code = 1798-8) 126 25-125 H [facility]ervilleLipase2018-06-04 14:10:00 Test Item Value Reference Range Interpretation Comments Lipase (test code = 3040-3) 98 8-78 H [facility]ervilleTotal Qtelbakxa1655-87-79 14:10:00 Test Item Value Reference Range Interpretation Comments Total Bilirubin (test code = 1975-2) 0.6 0.2-1.2 [facility]ugervilleAspartate Amino Transf (AST/SGOT)2017-10-23 14:10:00 Test Item Value Reference Range Interpretation Comments Aspartate Amino Transf (AST/SGOT) (test 36 5-34 H code = Aspartate Amino Transf (AST/SGOT)) [facility]ervilleAlanine Aminotransferase (ALT/SGPT)2017-10-23 14:10:00 Test Item Value Reference Range Interpretation Comments Alanine Aminotransferase (ALT/SGPT) 34 0-55 (test code = 1742-6) [facility]ervilleTotal Rahvvvk0716-81-88 14:10:00 Test Item Value Reference Range Interpretation Comments Total Protein (test code = 2885-2) 7.3 6.5-8.1 [facility]ugervilleD-Dimer Quantitative (PE/DVT)2017-10-23 14:02:00 Test Item Value Reference Range Interpretation Comments D-Dimer Quantitative (PE/DVT) (test 0.49 0.00-0.45 H code = 25061-0) [facility]ervilleDirect Msyjurlcm5860-78-34 13:47:00 Test Item Value Reference Range Interpretation Comments Direct Bilirubin (test code = 55376-7) 0.2 0.0-5.0 [facility]ervilleMagnesium Ftxhv9805-28-19 06:52:00 Test Item Value Reference Range Interpretation Comments Magnesium Level (test code = 15632-0) 1.5 1.3-2.1 [facility]ervilleUrine [id number] 05:09:00 Test Item Value Reference Range Interpretation Comments Urine WBC (test code = 5821-4) NONE 0-5 [facility]ervilleUrine [id number] 05:09:00 Test Item Value Reference Range Interpretation Comments Urine RBC (test code = 64280-6) NONE 0-5 [facility]ervilleUrine Npafpufz5425-48-33 05:09:00 Test Item Value Reference Range Interpretation Comments Urine Bacteria (test code = 65795-8) NONE NONE [facility]ervilleUrine Epithelial Vdnit2515-78-07 05:09:00 Test Item Value Reference Range Interpretation Comments Urine Epithelial Cells (test code = NONE NONE 16984-2) [facility]ervilleUrine Hycic4538-42-82 04:46:00 Test Item Value Reference Range Interpretation Comments Urine Color (test code = 5778-6) YELLOW YELLOW [facility]ervilleUrine Hhmarop9742-25-99 04:46:00 Test Item Value Reference Range Interpretation Comments Urine Clarity (test code = 95185-5) CLEAR CLEAR [facility]ervilleUrine Specific Qwwfzaq1105-06-16 04:46:00 Test Item Value Reference Range Interpretation Comments Urine Specific [place] (test code = 1.010 1.010-1.025 5811-5) [facility]ervilleUrine [id number] 04:46:00 Test Item Value Reference Range Interpretation Comments Urine pH (test code = 82201-0) 8 5-7 H [facility]ervilleUrine Leukocyte Wzsjlkbs3588-72-29 04:46:00 Test Item Value Reference Range Interpretation Comments Urine Leukocyte Esterase (test code NEGATIVE NEGATIVE = 5799-2) [facility]ervilleUrine Bqkibqv5196-07-49 04:46:00 Test Item Value Reference Range Interpretation Comments Urine Nitrite (test code = 14511-1) NEGATIVE NEGATIVE [facility]ervilleUrine [id number] 04:46:00 Test Item Value Reference Range Interpretation Comments Urine Protein (test code = 5804-0) NEGATIVE NEGATIVE [facility]ervilleUrine Glucose (UA)2017-03-05 04:46:00 Test Item Value Reference Range Interpretation Comments Urine Glucose (UA) (test code = NEGATIVE NEGATIVE 2349-9) [facility]ervilleUrine [id number] 04:46:00 Test Item Value Reference Range Interpretation Comments Urine Ketones (test code = 75334-7) NEGATIVE NEGATIVE [facility]ervilleUrine Qvludfgmvhes7743-53-22 04:46:00 Test Item Value Reference Range Interpretation Comments Urine Urobilinogen (test code = 0.2 0.2-1 65881-3) [facility]ervilleUrine Qceicvyuy4217-67-34 04:46:00 Test Item Value Reference Range Interpretation Comments Urine Bilirubin (test code = 1978-6) NEGATIVE NEGATIVE [facility]ervilleUrine Blgdf6131-84-43 04:46:00 Test Item Value Reference Range Interpretation Comments Urine Blood (test code = 59562-1) 2+ NEGATIVE H [facility] PflugervilleCTA BRAIN [facility] [address] [place] [address] PatientName: FAITH VANCE MR #: [id number] : 1960 Age/Sex: 57/M Req #: [id number] [facility] Physician: ALEXIS COX MD Ordered by: ALEXIS COX MD Report #: [id number] Location: [facility] Room/Bed: [place] [address] Procedure: [id number] CT/CTA BRAIN Exam Date: 10/24/17 Exam Time: [...] and proximal M2 segments. Anterior cerebral arteries: Patent,no abnormalities in the A1 and A2 segments. [...] ALEXIS COX MDCT BRAIN WO [place] [address] PatientName: FAITH VANCE MR #: [id number] : 1960 Age/Sex: 57/M Req #: [id number] Adm Physician: Ordered by: KHAI WAHL MD Report #: [id number] Location: ER Room/Bed: __ Procedure: [id number] CT/CT BRAIN WO Exam Date: 10/23/17 Exam [...] COPY TO: KHAI WAHL V MDCTA CHEST [facility] [address] [place] [address] PatientName: FAITH VANCE MR #: [id number] : 1960 Age/Sex: 57/M Req #: [id number] Adm Physician: Ordered by: KHAI WAHL MD Report #: [id number] Location: ER Room/Bed: __ Procedure: [id number] CT/CTA CHEST Exam Date: 10/23/17 Exam Time: [...] reviewed and is below limits set by [facility]).FINDINGS: Lines and Tubes: Pacemaker with leads terminating [...] 10/23/17 1621 COPY TO: KHAI WAHL V [facility] SINGLE (PORTABLE) [place] [address] PatientName: FAITH VANCE MR #: [id number] : 1960 Age/Sex: 57/M Req #: [id number] Adm Physician: Ordered by: KHAI WAHL MD Report #: [id number] Location: ER Room/Bed: __ Procedure: [id number] DX/CHEST SINGLE (PORTABLE) Exam Date: 10/23/17 Exam [...] WAHL V MDCT BRAIN WO [place] [address] PatientName: FAITH VANCE MR #: [id number] : 1960 Age/Sex: 56/M Req #: [id number] Adm Physician: Ordered by: JACQUELYN MONTES DE OCA MD Report #: [id number] Location: ER Room/Bed: Procedure: [id number] CT/CT BRAIN WO Exam Date: Exam Time: [...] No acute hemorrhage, mass or acute major vascu lar territorial infarct. Arteries: No density suggestive of thrombosis. Dural sinuses: No abnormal density suggestive of thrombosis. Ventricles: No hydrocephalus or displacement. Extra-axial spaces: Noabnormal density. Brain volume: Normal for age. Craniocervical [...] OCA MDCT CERVICAL SPINE WO [place] [address] PatientName: FAITH VANCE MR #: [id number] : 1960 Age/Sex: 56/M Req #: [id number] Adm Physician: Ordered by: JACQUELYN MONTES DE OCA MD Report #: [id number] Location: ER Room/Bed: Procedure: [id number] CT/CT CERVICAL SPINE WO Exam Date: Exam [...] 04/04/17206 COPY TO: JACQUELYN MONTES DE [facility] [place] [address] PatientName: FAITH VANCE MR #: [id number] : 1960 Age/Sex: 56/M Req #: [id number] Adm Physician: Ordered by: JACQUELYN MONTES DE OCA MD Report #: [id number] Location: ER Room/Bed: Procedure: [id number] DX/CHEST SINGLE (PORTABLE) Exam Date: 04/04/17 Exam [...] DE OCA MD HIP RIGHT 2-3 VW (+/- PELVIS) [place] [address] PatientName: FAITH VANCE MR #: [id number] : 1960 Age/Sex: 56/M Req #: [id number] Adm Physician: Ordered by: JACQUELYN MONTES DE OCA MD Report #: [id number] Location: ER Room/Bed: Procedure: [id number] DX/HIP RIGHT 2-3 VW (+/- PELVIS) Exam [...] DE OCA MDSP LUMBAR, COMPLETE MIN 4VW [facility] [address] [place] [address] PatientName: FATIH VANCE MR #: [id number] : 1960 Age/Sex: 56/M Req #: [id number] Adm Physician: Ordered by: JACQUELYN MONTES DE OCA MD Report #: [id number] Location: ER Room/Bed: Procedure: [id number] DX/SP LUMBAR, COMPLETE MIN 4VW Exam Date: [...] JACQUELYN MONTES DE OCA MDUS ABDOMEN COMPLETE [place] [address] PatientName: FAITH VANCE MR #: [id number] : 1960 Age/Sex: 56/M Req #: [id number] Adm Physician: NICHELLE PALACIOS MD Ordered by: SCOTT AMIN MD Report #: [id number] Location: [facility] Room/Bed: [facility] [address] Procedure: [id number] US/US ABDOMEN COMPLETE Exam Date: 03/08/17 Exam [...] 10:40 Dictated By: BROOKE SAMPSON MD 1040 COPY TO: SCOTT AMIN [facility] (PORTABLE) [facility] [address] PatientName: FAITH VANCE MR #: [id number] : 1960 Age/Sex: 56/M Req #: [id number] Adm Physician: Ordered by: JACQUELYN MONTES DE OCA MD Report #: [id number] Location: ER Room/Bed: Procedure: [id number] DX/CHEST SINGLE (PORTABLE) Exam Date: 03/05/17 Exam [...]
[2022-02-09] MEDS ORDERED: ONDANSETRON 4 MG/2 ML VIAL ONE (13:03)
[2022-02-09] MEDS ORDERED: MORPHINE 4 MG/ML SYR ONE (13:03)
[2022-02-09 13:13] LABS: Potassium 3.7 mmol/L (3.5-5.1); Troponin High Sensitivity 22.6 pg/mL (<58.9)
--- NOTE | 2022-02-09 13:15 | RAD REPORT ---
EXAM DESCRIPTION: RAD - Chest Single View - 02/09/2022 1:06 pm CLINICAL HISTORY: CHEST PAIN Chest pain. COMPARISON: Chest Single View dated 02/04/2022; Chest Single View dated 02/02/2022; Chest Single View dated 02/01/2022; Chest Single View dated 01/30/2022 FINDINGS: Portable technique limits examination quality. Mild interstitial pulmonary edema. The heart is mildly enlarged in size. No displaced fractures.Dual lead pacer device is present. Sternotomy wires are present. IMPRESSION: Mild CHF.
[2022-02-09 13:53] LABS: Platelet Estimate ADEQ; White Blood Cell Scan OK (OK)
[2022-02-09 13:54] LABS: Blood Morphology Comment NOT SEEN (NOT SEEN)
[2022-02-09] MEDS ORDERED: FUROSEMIDE 40 MG/4 ML VIAL ONE (14:24)
--- NOTE | 2022-02-09 14:55 | ER ---
Nurse's Notes [facility] Name: Ernie Rooney Age: 61 yrs Sex: Male : 1960 Arrival Date: 02/09/2022 Time: 12:19 Bed 2 Private MD: Diagnosis: Chest pain, unspecified;Angina pectoris, unspecified;Essential (primary) hypertension;Unspecified combined systolic (congestive) and diastolic (congestive) heart failure;Type 2 diabetes mellitus with hyperglycemia Presentation: 02/09 12:16 Chief complaint: EMS states: toned out to PT home for chest pain that radiates to the tp1 left arm and back, pain rated 10/10. Aspirin 324 mg administered on route. BP 143/81, HR 78, O2 100%. 12:16 Coronavirus screen: Vaccine status: Patient reports receiving the 2nd dose of the covid tp1 vaccine. Ebola Screen: Patient negative for fever greater than or equal to 101.5 degrees Fahrenheit, and additional compatible Ebola Virus Disease symptoms Patient denies exposure to infectious person. Patient denies travel to an Ebola-affected area in the 21 days before illness onset. Initial Sepsis Screen: Does the patient meet any 2 criteria? No. Patient's initial sepsis screen is negative. Does the patient have a suspected source of infection? No. Patient's initial sepsis screen is negative. Risk Assessment: Do you want to hurt yourself or someone else? Patient reports no desire to harm self or others. Onset of symptoms was February 09, 2022. 12:16 Method Of Arrival: EMS: [facility] tp1 12:16 Acuity: TONE 3 tp1 12:16 Care prior to arrival: Medication(s) given: aspirin 324 mg. tp1 Triage Assessment: 12:16 General: Appears in no apparent distress. uncomfortable, Behavior is cooperative, tp1 anxious, restless. Pain: Complains of pain in chest Pain radiates to left arm and back Pain currently is 10 out of 10 on a pain scale. Quality of pain is described as pressure, Pain began today Is continuous. EENT: No signs and/or symptoms were reported regarding the EENT system. Neuro: Naidu Agitation-Sedation Scale (RASS): 0 - Alert and Calm Level of Consciousness is awake, alert, obeys commands, Oriented to person, place, time, situation. Cardiovascular: Reports chest pain, Denies shortness of breath, Capillary refill < 3 seconds in bilateral fingers Patient's skin is warm and dry. Respiratory: Airway is patent Respiratory effort is even, unlabored. GI: Abdomen is flat, non-distended, Reports nausea, Patient currently denies abdominal pain, vomiting. : No signs and/or symptoms were reported regarding the genitourinary system. Derm: Skin is pink, warm \\T\\ dry. Musculoskeletal: Amputation of bilateral lower legs . Circulation, motion, and sensation intact. Historical: - Allergies: 12:16 NKA; tp1 - Home Meds: 12:16 albuterol sulfate 90 mcg/actuation Inhl aepb [Active]; apixaban 5 mg Oral tab 1 tab 2 tp1 times per day [Active]; aspirin 81 mg Oral chew [Active]; atorvastatin 40 mg Oral tab 1 tab once daily [Active]; cyclobenzaprine 10 mg Oral tab 1 tab as needed [Active]; fenofibrate micronized 200 mg Oral Tb24 1 cap once daily [Active]; furosemide 40 mg Oral tab 1 tab once daily [Active]; gabapentin 800 mg Oral tab 1 tab 3 times per day [Active]; glipizide 10 mg Oral tab 1 tab once daily [Active]; Humulin N Pen 100 unit/mL (3 mL) Sub-Q inpn [Active]; levothyroxine 50 mcg Tb24 1 cap once daily [Active]; lisinopril 2.5 mg Oral tab 1 tab once daily [Active]; metformin 500 mg Oral tab 1 tab daily [Active]; omeprazole 20 mg Oral cpDR 1 cap once daily [Active]; spironolactone 25 mg Oral tab 1 tab once daily [Active]; tamsulosin 0.4 mg Oral Tb24 1 cap once daily [Active]; venlafaxine 75 mg Oral tab 1 tab 2 times per day [Active]; - PMHx: 12:16 Back pain; Arthritis; CVA; Depression; Diabetes - NIDDM; Fibromyalgia; GERD; tp1 Hyperlipidemia; Hypertensive disorder; Hypothyroidism; Left sided weakness from previous CVA; Myocardial infarction; Pacemaker; - PSHx: 12:16 bilat BKA's; CABG; bypass; tp1 - Immunization history:: Client reports receiving the 2nd dose of the Covid vaccine. - Social history:: Smoking status: Patient/guardian denies using tobacco, the patient reports quitting approximately 10 years ago. Screenin:16 Abuse screen: Denies threats or abuse. Denies injuries from another. Nutritional tp1 screening: No deficits noted. Tuberculosis screening: No symptoms or risk factors identified. Fall Risk No fall in past 12 months (0 pts). No secondary diagnosis (0 pts). IV access (20 points). Ambulatory Aid- None/Bed Rest/Nurse Assist (0 pts). Gait- Normal/Bed Rest/Wheelchair (0 pts) Mental Status- Oriented to own ability (0 pts). Assessment: 12:16 General: see triage notes. tp1 13:30 Reassessment: Patient appears in no apparent distress at this time. No changes from tp1 previously documented assessment. Patient and/or family updated on plan of care and expected duration. Pain level reassessed. Patient is alert, oriented x 3, equal unlabored respirations, skin warm/dry/pink. continuing to CO 9/10 chest pain, states morphine did not help. provider notified. 14:11 Reassessment: Patient appears in no apparent distress at this time. No changes from tp1 previously documented assessment. Patient and/or family updated on plan of care and expected duration. Pain level reassessed. 14:26 Reassessment: received VO from Dr. Cole for Dilaudid 1 mg IV X1. tp1 15:30 Reassessment: Patient appears in no apparent distress at this time. No changes from tp1 previously documented assessment. Patient is alert, oriented x 3, equal unlabored respirations, skin warm/dry/pink. light dimmed, noise minimized. 16:27 Reassessment: Patient appears in no apparent distress at this time. Patient is alert, tp1 oriented x 3, equal unlabored respirations, skin warm/dry/pink. states "feeling much better" rates chest pain 6/10. 17:30 Reassessment: Patient appears in no apparent distress at this time. Patient is alert, tp1 oriented x 3, equal unlabored respirations, skin warm/dry/pink. states chest pain is returning. rates pain 4/10. PT is resting in bed with eyes closed. 17:38 Reassessment: meal tray at bedside. tp1 18:53 Reassessment: Patient appears in no apparent distress at this time. Patient is alert, tp1 oriented x 3, equal unlabored respirations, skin warm/dry/pink. resting in bed with eyes closed. 19:01 Reassessment: report given to Sheila SCRUGGS at [facility] tp1 19:21 Reassessment: Patient appears in no apparent distress at this time. Patient and/or jb4 family updated on plan of care and expected duration. Pain level reassessed. Patient is alert, oriented x 3, equal unlabored respirations, skin warm/dry/pink. Pt being transferred to receiving facility via EMS. Vital Signs: 12:16 BP 146 / 82; Pulse 81; Resp 18; Pulse Ox 100% on R/A; Weight 75.75 kg; Height 5 ft. 7 tp1 in. (170.18 cm); Pain 10/10; 13:30 BP 140 / 76; Pulse 75; Resp 25; Pulse Ox 100% on R/A; tp1 14:12 BP 135 / 70; Pulse 79; Resp 26; Pulse Ox 100% on R/A; tp1 15:00 BP 141 / 81; Pulse 68; Resp 20; Pulse Ox 100% on R/A; tp1 16:00 BP 118 / 63; Pulse 76; Resp 13; Pulse Ox 98% on R/A; tp1 17:38 BP 135 / 70; Pulse 84; Resp 11; Temp 97.8(O); Pulse Ox 100% on R/A; tp1 18:50 BP 123 / 75; Pulse 72; Resp 22; Pulse Ox 100% on R/A; eh3 19:00 BP 114 / 76; Pulse 67; Resp 20; Pulse Ox 99% on R/A; jb4 12:16 Body Mass Index 26.16 (75.75 kg, 170.18 cm) tp1 ED Course: 12:16 Arm band placed on. tp1 12:16 Patient has correct armband on for positive identification. Bed in low position. Call tp1 light in reach. Side rails up X2. 12:16 Client placed on continuous cardiac and pulse oximetry monitoring. NIBP monitoring tp1 applied. 12:19 Patient arrived in ED. ld1 12:25 Missed attempt(s): 20 gauge in right antecubital area. Bleeding controlled, band aid vg1 applied, catheter tip intact. 12:25 EKG done, by ED staff. tp1 12:28 Teagan Perez, RN is Primary Nurse. eh3 12:32 Triage completed. tp1 12:33 Initial lab(s) drawn, by pr, sent to lab. Inserted saline lock: 20 gauge in right vg1 wrist, using aseptic technique. Blood collected. 12:47 Mustapha Cole MD is Attending Physician. caitlyn 13:07 COVID swab sent to lab. tp1 13:07 SARS-COV-2 RT PCR (Document "Date of Onset" if Symptomatic) Sent. tp1 13:16 RAD In Process Unspecified. EDMS 14:54 Heather Gaffney MD is Hospitalizing Provider. [facility] 17:31 Primary Nurse role handed off by Teagan Perez RN tp1 17:31 Opal Gomez RN is Primary Nurse. tp1 17:33 . initiated transfer to [facility]) as requested by pt. bd 19:08 Troponin HS Sent. tw5 19:08 Basic Metabolic Panel Sent. tw5 19:08 CBC with Diff Sent. tw5 19:08 Lipase Sent. tw5 19:22 No provider procedures requiring assistance completed. Patient transferred, IV remains jb4 in place. Administered Medications: 12:57 Drug: Zofran (Ondansetron) 4 mg Route: IVP; Site: right wrist; tp1 16:29 Follow up: Response: Nausea is decreased tp1 12:59 Not Given (Physician Discretion): Aspirin 81 mg PO once tp1 12:59 Drug: morphine 4 mg Route: IVP; Infused Over: 4 mins; Site: right wrist; tp1 13:30 Follow up: Response: Pain is unchanged, physician notified tp1 14:18 Drug: Lasix (furosemide) 40 mg Route: IVP; Site: right wrist; tp1 16:30 Follow up: Response: No adverse reaction tp1 15:02 Drug: Lopressor (metoprolol TARTRATE) 50 mg Route: PO; tp1 16:31 Follow up: Response: No change in condition tp1 15:03 Drug: PlaVIX (clopidogrel) 300 mg Route: PO; tp1 16:31 Follow up: Response: No adverse reaction tp1 15:05 Drug: Dilaudid (HYDROmorphone) 1 mg Route: IVP; Site: right wrist; tp1 16:30 Follow up: Response: Pain is decreased tp1 15:07 Drug: Pepcid (famotidine) 20 mg Route: IVP; Site: right wrist; tp1 16:31 Follow up: Response: Pain is decreased tp1 15:08 Drug: Lovenox (enoxaparin) 1 mg/kg Route: Sub-Q; Site: left upper abdomen; tp1 16:31 Follow up: Response: No adverse reaction tp1 Outcome: 14:55 Decision to Hospitalize by Provider. [facility] 18:29 ER care complete, transfer ordered by . [facility] 19:22 Transferred by ground EMS to [facility], Transfer form jb4 completed. X-rays sent w/ patient. 19:22 Condition: stable 19:22 Discharge instructions given to patient, Instructed on the need for transfer, Demonstrated understanding of instructions. 19:22 Patient left the ED. jb4 Signatures: Dispatcher [employer] EDMS Katlin Harris Corey, MD MD cha Bryson, James, RN RN jb4 Violeta Friedman, RN RN vg1 Yelena Staton RN RN minesh1 Opal Mahmood tw5 Opal Gomez RN RN tp1 Teagan Perez RN RN eh3 Corrections: (The following items were deleted from the chart) 16:30 16:29 Response: Pain is decreased tp1 tp1 17:38 17:35 Reassessment: Patient appears in no apparent distress at this time. Patient is tp1 alert, oriented x 3, equal unlabored respirations, skin warm/dry/pink. states chest pain is returning. rates pain 4/10. PT is resting in bed with eyes closed. tp1 17:40 17:38 BP 135 / 70; Pulse 84bpm; Resp 11bpm; Pulse Ox 100% RA; tp1 tp1
--- NOTE | 2022-02-09 14:56 | EDPHYS ---
Physician Documentation [facility] Name: Ernie Rooney Age: 61 yrs Sex: Male : 1960 Arrival Date: 02/09/2022 Time: 12:19 Bed 2 Private MD: ED Physician Mustapha Cole HPI: 02/09 14:47 This 61 yrs old Male presents to ER via EMS with complaints of Chest Pain > 30 caitlyn y/o. 14:47 The patient or guardian reports chest pain that is located primarily in the substernal caitlyn area, anterior chest wall, bilaterally. Onset: 6 hour(s) ago. The pain does not radiate. Associated signs and symptoms: The patient has no apparent associated signs or symptoms. The chest pain is described as a heaviness, a pressure. Duration: The patient or guardian reports multiple episodes, with no pattern. Modifying factors: The symptoms are alleviated by nothing. the symptoms are aggravated by nothing. Severity of pain: At its worst the pain was moderate in the emergency department the pain has resolved. EMS care prior to arrival includes: aspirin, saline lock, supplemental oxygen. The patient has experienced similar episodes in the past, multiple times. Historical: - Allergies: 12:16 NKA; tp1 - Home Meds: 12:16 albuterol sulfate 90 mcg/actuation Inhl aepb [Active]; apixaban 5 mg Oral tab 1 tab 2 tp1 times per day [Active]; aspirin 81 mg Oral chew [Active]; atorvastatin 40 mg Oral tab 1 tab once daily [Active]; cyclobenzaprine 10 mg Oral tab 1 tab as needed [Active]; fenofibrate micronized 200 mg Oral Tb24 1 cap once daily [Active]; furosemide 40 mg Oral tab 1 tab once daily [Active]; gabapentin 800 mg Oral tab 1 tab 3 times per day [Active]; glipizide 10 mg Oral tab 1 tab once daily [Active]; Humulin N Pen 100 unit/mL (3 mL) Sub-Q inpn [Active]; levothyroxine 50 mcg Tb24 1 cap once daily [Active]; lisinopril 2.5 mg Oral tab 1 tab once daily [Active]; metformin 500 mg Oral tab 1 tab daily [Active]; omeprazole 20 mg Oral cpDR 1 cap once daily [Active]; spironolactone 25 mg Oral tab 1 tab once daily [Active]; tamsulosin 0.4 mg Oral Tb24 1 cap once daily [Active]; venlafaxine 75 mg Oral tab 1 tab 2 times per day [Active]; - PMHx: 12:16 Back pain; Arthritis; CVA; Depression; Diabetes - NIDDM; Fibromyalgia; GERD; tp1 Hyperlipidemia; Hypertensive disorder; Hypothyroidism; Left sided weakness from previous CVA; Myocardial infarction; Pacemaker; - PSHx: 12:16 bilat BKA's; CABG; bypass; tp1 - Immunization history:: Client reports receiving the 2nd dose of the Covid vaccine. - Social history:: Smoking status: Patient/guardian denies using tobacco, the patient reports quitting approximately 10 years ago. ROS: 14:48 Constitutional: Negative for fever, chills, and weight loss, Eyes: Negative for injury, caitlyn pain, redness, and discharge, ENT: Negative for injury, pain, and discharge, Neck: Negative for injury, pain, and swelling, Abdomen/GI: Negative for abdominal pain, nausea, vomiting, diarrhea, and constipation, Back: Negative for injury and pain, : Negative for injury, bleeding, discharge, and swelling, MS/Extremity: Negative for injury and deformity, Skin: Negative for injury, rash, and discoloration, Neuro: Negative for headache, weakness, numbness, tingling, and seizure, Psych: Negative for depression, anxiety, suicide ideation, homicidal ideation, and hallucinations, Allergy/Immunology: Negative for hives, rash, and allergies, Endocrine: Negative for neck swelling, polydipsia, polyuria, polyphagia, and marked weight changes, Hematologic/Lymphatic: Negative for swollen nodes, abnormal bleeding, and unusual bruising. 14:48 Cardiovascular: Positive for chest pain, of the chest. 14:48 Respiratory: Positive for shortness of breath. Exam: 14:48 Constitutional: This is a well developed, well nourished patient who is awake, alert, caitlyn and in no acute distress. Head/Face: Normocephalic, atraumatic. Eyes: Pupils equal round and reactive to light, extra-ocular motions intact. Lids and lashes normal. Conjunctiva and sclera are non-icteric and not injected. Cornea within normal limits. Periorbital areas with no swelling, redness, or edema. ENT: Nares patent. No nasal discharge, no septal abnormalities noted. Tympanic membranes are normal and external auditory canals are clear. Oropharynx with no redness, swelling, or masses, exudates, or evidence of obstruction, uvula midline. Mucous membranes moist. Neck: Trachea midline, no thyromegaly or masses palpated, and no cervical lymphadenopathy. Supple, full range of motion without nuchal rigidity, or vertebral point tenderness. No Meningismus. Chest/axilla: Normal chest wall appearance and motion. Nontender with no deformity. No lesions are appreciated. Cardiovascular: Regular rate and rhythm with a normal S1 and S2. No gallops, murmurs, or rubs. Normal PMI, no JVD. No pulse deficits. Respiratory: Lungs have equal breath sounds bilaterally, clear to auscultation and percussion. No rales, rhonchi or wheezes noted. No increased work of breathing, no retractions or nasal flaring. Abdomen/GI: Soft, non-tender, with normal bowel sounds. No distension or tympany. No guarding or rebound. No evidence of tenderness throughout. Back: No spinal tenderness. No costovertebral tenderness. Full range of motion. Male : Normal genitalia with no discharge or lesions. Skin: Warm, dry with normal turgor. Normal color with no rashes, no lesions, and no evidence of cellulitis. MS/ Extremity: Pulses equal, no cyanosis. Neurovascular intact. Full, normal range of motion. Neuro: Awake and alert, GCS 15, oriented to person, place, time, and situation. Cranial nerves II-XII grossly intact. Motor strength 5/5 in all extremities. Sensory grossly intact. Cerebellar exam normal. Normal gait. Psych: Awake, alert, with orientation to person, place and time. Behavior, mood, and affect are within normal limits. Vital Signs: 12:16 BP 146 / 82; Pulse 81; Resp 18; Pulse Ox 100% on R/A; Weight 75.75 kg; Height 5 ft. 7 tp1 in. (170.18 cm); Pain 10/10; 13:30 BP 140 / 76; Pulse 75; Resp 25; Pulse Ox 100% on R/A; tp1 14:12 BP 135 / 70; Pulse 79; Resp 26; Pulse Ox 100% on R/A; tp1 15:00 BP 141 / 81; Pulse 68; Resp 20; Pulse Ox 100% on R/A; tp1 16:00 BP 118 / 63; Pulse 76; Resp 13; Pulse Ox 98% on R/A; tp1 17:38 BP 135 / 70; Pulse 84; Resp 11; Temp 97.8(O); Pulse Ox 100% on R/A; tp1 18:50 BP 123 / 75; Pulse 72; Resp 22; Pulse Ox 100% on R/A; eh3 19:00 BP 114 / 76; Pulse 67; Resp 20; Pulse Ox 99% on R/A; jb4 12:16 Body Mass Index 26.16 (75.75 kg, 170.18 cm) tp1 MDM: 12:47 Patient medically screened. caitlny 14:49 Differential diagnosis: abnormal EKG, acute myocardial infarction, acute pericarditis, ciatlyn coronary artery disease congestive heart failure costochondritis, pancreatitis, pericarditis, pulmonary embolus, stable angina, unstable angina. HEART Score: History: Moderately Suspicious (1), ECG: Non specific repolarization disturbance / LBTB / PM (1), Age: > 45 and < 65 years (1), Risk Factors: > or = 3 Risk factors for atherosclerotic disease (2), [Hypercholesterolemia] [Hypertension] [DM] [+ Family HX] [Obesity] Troponin: < or = 1 x Normal Limit (0). The patient was given aspirin in the Emergency Department. The patient's deep vein thrombosis risk score was calculated as follows: Total Score: 0. This patient was found to be at low risk for a deep vein thrombosis by using the Well's assessment criteria. The patient's pulmonary embolism risk score was calculated as follows: Total Score: 0-2 points. This patient was found to be at low risk for a pulmonary embolism by using the Well's assessment criteria. TARA Risk Score: 1 - Three or more CAD risk factors, 1- Known CAD, TOTAL SCORE = 2. Data reviewed: vital signs, nurses notes, lab test result(s), EKG, radiologic studies, CT scan, plain films. Data interpreted: media monitor: rate is 79 beats/min, rhythm is regular, Pulse oximetry: on room air is 100 %. Test interpretation: by ED physician or midlevel provider: ECG, plain radiologic studies. Counseling: I had a detailed discussion with the patient and/or guardian regarding: the historical points, exam findings, and any diagnostic results supporting the discharge/admit diagnosis, the presence of at least one elevated blood pressure reading (>120/80) during this emergency department visit, lab results, radiology results, the need for further work-up and treatment in the hospital. 02/09 12:32 Order name: Basic Metabolic Panel [facility] 02/09 12:32 Order name: CBC with Diff [facility] 02/09 12:32 Order name: Troponin HS [facility] 02/09 12:48 Order name: Lipase [facility] 02/09 12:48 Order name: UDS; Complete Time: 17:02 [facility] 02/09 12:48 Order name: SARS-COV-2 RT PCR (Document "Date of Onset" if Symptomatic); Complete Time: [facility] 17:02/09 12:32 Order name: XRAY Chest (1 view) [facility] 02/09 12:53 Order name: CBC with Automated Diff; Complete Time: 14:08 [facility] 02/09 13:14 Order name: Basic Metabolic Panel; Complete Time: 14:08 [facility] 02/09 13:14 Order name: Troponin High Sensitivity; Complete Time: 14:08 [facility] 02/09 13:16 Order name: RAD [facility] 02/09 13:20 Order name: Lipase; Complete Time: 14:08 [facility] 02/09 13:54 Order name: CBC Smear Scan; Complete Time: 14:08 [facility] 02/09 15:14 Order name: Urine Dipstick-Ancillary; Complete Time: 17:02 [facility] 02/09 12:32 Order name: EKG; Complete Time: 12:32 [facility] 02/09 12:32 Order name: Cardiac monitoring; Complete Time: 12:33 [facility] 02/09 12:32 Order name: EKG - Nurse/Tech; Complete Time: 12:33 [facility] 02/09 12:32 Order name: IV Saline Lock; Complete Time: 12:33 [facility] 02/09 12:32 Order name: Labs collected and sent; Complete Time: 12:33 [facility] 02/09 12:32 Order name: O2 Per Protocol; Complete Time: 12:33 [facility] 02/09 12:32 Order name: O2 Sat Monitoring; Complete Time: 12:33 [facility] 02/09 12:48 Order name: Urine Dipstick-Ancillary (obtain specimen); Complete Time: 15:15 [facility] Administered Medications: 12:57 Drug: Zofran (Ondansetron) 4 mg Route: IVP; Site: right wrist; tp1 16:29 Follow up: Response: Nausea is decreased tp1 12:59 Not Given (Physician Discretion): Aspirin 81 mg PO once tp1 12:59 Drug: morphine 4 mg Route: IVP; Infused Over: 4 mins; Site: right wrist; tp1 13:30 Follow up: Response: Pain is unchanged, physician notified tp1 14:18 Drug: Lasix (furosemide) 40 mg Route: IVP; Site: right wrist; tp1 16:30 Follow up: Response: No adverse reaction tp1 15:02 Drug: Lopressor (metoprolol TARTRATE) 50 mg Route: PO; tp1 16:31 Follow up: Response: No change in condition tp1 15:03 Drug: PlaVIX (clopidogrel) 300 mg Route: PO; tp1 16:31 Follow up: Response: No adverse reaction tp1 15:05 Drug: Dilaudid (HYDROmorphone) 1 mg Route: IVP; Site: right wrist; tp1 16:30 Follow up: Response: Pain is decreased tp1 15:07 Drug: Pepcid (famotidine) 20 mg Route: IVP; Site: right wrist; tp1 16:31 Follow up: Response: Pain is decreased tp1 15:08 Drug: Lovenox (enoxaparin) 1 mg/kg Route: Sub-Q; Site: left upper abdomen; tp1 16:31 Follow up: Response: No adverse reaction tp1 Disposition Summary: 02/09/22 18:29 Transfer Ordered Transfer Location: [facility] caitlyn Reason: Higher level of care caitlyn Condition: Fair(02/09/22 18:29) caitlyn Problem: new(02/09/22 18:29) caitlyn Symptoms: have improved(02/09/22 18:29) caitlyn Accepting Physician: to dr ennis [facility] pilar(02/09/22 19:22) jb4 Diagnosis - Chest pain, unspecified caitlyn - Angina pectoris, unspecified(02/09/22 18:29) caitlyn - Essential (primary) hypertension(02/09/22 18:29) caitlyn - 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 EDPA EDMS 18:28 14:55 Observation caitlyn caitlyn 18:28 14:55 Gaffney Geovannyd caitlyn caitlyn 18:28 14:55 Telemetry/MedSurg (observation) caitlyn caitlyn 18:28 14:55 Fair caitlyn caitlyn 18:28 14:55 new caitlyn caitlyn 18:28 14:55 have improved caitlyn caitlyn 18:28 14:55 Standard caitlyn caitlyn 18:28 14:55 caitlyn caitlyn 18:28 14:55 Unspecified combined systolic (congestive) and diastolic (congestive) heart caitlyn failure caitlyn 18:28 14:55 Essential (primary) hypertension caitlyn caitlyn 18:28 14:55 Angina pectoris, unspecified caitlyn caitlyn 18:28 14:55 Type 2 diabetes mellitus with hyperglycemia caitlyn caitlyn 19:22 18:[address] ennis [facility] caitlyn jb4
[2022-02-09] MEDS ORDERED: METOPROLOL TAR 50 MG TAB ONE (15:05)
[2022-02-09] MEDS ORDERED: FAMOTIDINE 20 MG/2 ML VIAL IV ONE (15:06)
[2022-02-09] MEDS ORDERED: CLOPIDOGREL 75 MG TABLET ONE (15:06)
[2022-02-09] MEDS ORDERED: ENOXAPARIN 80 MG/0.8 ML SQ ONE (15:06)
[2022-02-09] MEDS ORDERED: HYDROMORPHONE HCL 1 MG/ML INJ ONE (15:06)
[2022-02-09 15:14] LABS: Urine Blood 3+ (Negative); Urine Glucose Trace (Negative); Urine Protein 3+ (Negative); Urine Specific Gravity 1.025 (1.005-1.030)
[2022-02-09 15:34] LABS: Barbiturates NEGATIVE (NEGATIVE); Benzodiazepines NEGATIVE (NEGATIVE); Cocaine NEGATIVE (NEGATIVE); METHAMPHETAM NEGATIVE (NEGATIVE); Methadone NEGATIVE (NEGATIVE); Opiates POSITIVE (NEGATIVE); Phencyclidine NEGATIVE (NEGATIVE); THC Cannibis NEGATIVE (NEGATIVE)
[2022-02-09] MEDS ORDERED: ASPIRIN 325 MG TAB PO ONE (16:06)
[2022-02-09] MEDS ORDERED: FUROSEMIDE 20 MG TABLET PO ONE (16:06)
[2022-02-09] MEDS ORDERED: METOPROLOL TAR 50 MG TAB PO ONE (16:07)
[2022-02-09] MEDS ORDERED: HYDROCODONE/APAP 10/325 TAB PO PRN (16:11)
--- NOTE | 2022-02-09 16:21 | P.SSS ---
Patient History Date of Service: 03/18/22 Reason for admission: CP r/o ACS History of Present Illness: Patient is a 61-year-old gentleman who is well known to us for numerous hospital admissions. As he comes into the hospital with complaints of chest pain. Patient had serial troponins in the ER and these were negative. Patient will be admitted to the hospital for further evaluation. Allergies No Known Allergies Allergy (Verified 12/21/21 00:23) Home Medications: ondansetron HCL [Zofran] 4 mg PO Q8H PRN 08/01/19 Cyclobenzaprine [Flexeril*] 10 mg PO BID PRN 12/21/21 Dicyclomine [Bentyl*] 20 mg PO QID 12/21/21 Docusate Sodium 100 mg PO DAILY 12/21/21 Gabapentin 800 mg PO BID 12/21/21 Levothyroxine Sodium [Levothyroxine] 50 mcg PO DAILY 30 Days #30 01/15/22 Venlafaxine HCl 75 mg PO BID 30 Days #60 01/15/22 glipiZIDE [Glipizide] 10 mg PO DAILY #30 01/15/22 Apixaban [Eliquis] 5 mg PO BID #60 01/28/22 Aspirin Chewable [Aspirin Chewable*] 81 mg PO DAILY #30 tab.chew 01/28/22 Atorvastatin Calcium [Lipitor] 40 mg PO BEDTIME #30 tab 01/28/22 Furosemide 40 mg PO BID #60 tab 01/28/22 Hydrocodone 5/APAP 325 [Friendship 5/325*] 1 tab PO Q4H PRN #12 tab 01/28/22 Insulin -Regular Human [Novolin -R*] 6 unit SQ BIDWM #10 ml 01/28/22 Insulin 70/30 NPH/Reg Human [Novolin 70/30*] 6 unit SQ DAILY #10 ml 01/28/22 Metformin HCl 500 mg PO DAILY #30 tab 01/28/22 Metoprolol Succinate 0.5 tab PO DAILY 30 Days #30 tab 01/28/22 Omeprazole 20 mg PO DAILY 30 Days #30 01/28/22 Spironolactone 25 mg PO DAILY #30 tab 01/28/22 Tamsulosin [Flomax*] 0.4 mg PO DAILY #30 cap 01/28/22 lisinopriL [Prinivil*] 2.5 mg PO DAILY #30 tab 01/28/22 - Past Medical/Surgical History Diabetic: Yes -: CAD/MO -: GERD -: Hypertension -: Anxiety/depression -: DM insulin dependent -: Hypothyroidism -: enlarged prostate -: cataract in the left eye -: fibromyalgia -: hyperlipidemia -: neuropathy -: Systolic CHF -: pacemaker placement May 2017 -: triple bypass 2002 4 stents -: back surgeries x 6 -: arthroscopic surgeries bilateral knees -: left forearm rodding -: Cholecystectomy -: Appendectomy -: tonsillectomy Psychosocial/ Personal History: Patient lives at home. He does not work. - Family History Mother -: Heart disease, Hypertension grandparents -: Diabetes, Stroke - Social History Alcohol use: No CD- Drugs: No Caffeine use: Yes Review of Systems 10-point ROS is otherwise unremarkable Physical Examination - Vital Signs Temperature: 98 F Blood Pressure: 140/80 Pulse: 80 Respirations: 18 Pulse Ox (%): 98 - Physical Exam General: Alert, In no apparent distress, Oriented x3 HEENT: Atraumatic, PERRLA, Mucous membr. moist/pink, EOMI, Sclerae nonicteric Neck: Supple, 2+ carotid pulse no bruit, No LAD, Without JVD or thyroid abnormality Respiratory: Clear to auscultation bilaterally, Normal air movement Cardiovascular: Regular rate/rhythm, Normal S1 S2 Gastrointestinal: Normal bowel sounds, Soft and benign, Non-distended, No tend erness Musculoskeletal: No clubbing, No swelling, No tenderness Integumentary: No rashes Neurological: Normal gait, Normal speech, Normal strength at 5/5 x4 extr, Normal tone, Normal affect Lymphatics: No axilla or inguinal lymphadenopathy - Studies Laboratory Data (last 24 hrs) 02/09/22 12:48: Lipase Cancelled 02/09/22 12:25: WBC 8.40, Hgb 11.6 L, Hct 34.3 L, Plt Count 264 02/09/22 12:25: Sodium 138, Potassium 3.7, BUN 17, Creatinine 0.82, Glucose 118 H, Lipase 166 - Diagnosis (Problem(s)) (1) Chest pain, rule out acute myocardial infarction Status: Acute (2) Carotid arterial disease Onset Date: 11/08/17 Status: Chronic (3) Depression Onset Date: 06/20/18 Status: Chronic Qualifiers: (4) Diabetes mellitus Status: Chronic Qualifiers: Diabetes mellitus type: type 2 Diabetes mellitus terminal clerk insulin use: with terminal clerk use Diabetes mellitus complication status: with hyperglycemia Qualified Code(s): E11.65 - Type 2 diabetes mellitus with hyperglycemia; Z79.4 - intermediate card tender (current) use of insulin (5) History of left common carotid artery stent placement Onset Date: 11/08/17 Status: Chronic (6) History of pacemaker Onset Date: 11/08/17 Status: Chronic (7) Hyperlipidemia Status: Chronic Qualifiers: Hyperlipidemia type: unspecified Qualified Code(s): E78.5 - Hyperlipidemia, unspecified (8) Hypertension Status: Chronic Qualifiers: Hypertension type: primary hypertension Qualified Code(s): I10 - Essential (primary) hypertension Treatment Summary: Patient ruled out for acute coronary syndrome. Patient's troponins and EKG were negative. Patient clinically doing well. At this time, patient is stable for discharge with outpatient follow-up. - Disposition Disposition: TRANSFER TO [facility] Condition: GOOD Patient Discharge Instructions: OK TO DC IV AND DC HOME. FOLLOW-UP WITH PRIMARY CARE PROVIDER IN 1-2 WEEKS. FOLLOW-UP WITH CARDIOLOGY IN 1-2 WEEKS. RETURN TO THE ER IF Symptoms worsen. CALL DR. ZAMORA AT [phone] IF ANY QUESTIONS REGARDING HOSPITAL STAY. PLEASE CALL THE FLOOR AT [phone] IF ANY MEDICATION OR NURSING QUESTIONS. Diet: AHA Activity: Fall precautions Critical Care: No Time Spent Managing Pts Care (In Minutes): 45
[2022-02-09] MEDS ORDERED: clonazePAM 0.5 MG TAB PO ONE (17:00)
--- NOTE | 2022-02-10 13:40 | EKG ---
Test Date: 2022-02-09 Test Time: 12:29:13 Certified Athletic Trainer: TP MEASUREMENT RESULTS: Intervals: Rate: 81 NM: 192 QRSD: 160 QT: 432 QTc: 501 Drury: P: NM: 192 QRS: -47 T: 160 INTERPRETIVE STATEMENTS: Electronic ventricular pacemaker Compared to ECG 02/04/2022 09:32:44 No significant changes Electronically Signed On 02-10-22 13:38:13 CDT by Kavin Keenan
[2022-02-11 06:42] VITALS: O2SAT 99
[2022-03-18 04:30] VITALS: BP 140/80; TEMP 98
== END 2022-02-09 20:00 | disposition short-term general hospital (02) ==
LOC: ER 12:15 → ERHOLD 16:06
PROVIDERS: ADMIT Hospitalist; ATTEND Hospitalist
DX: R07.9 Chest pain, unspecified (principal); I25.10 Atherosclerotic heart disease of native coronary artery without angina pectoris; I11.0 Hypertensive heart disease with heart failure; I50.20 Unspecified systolic (congestive) heart failure; I25.2 Old myocardial infarction; E78.5 Hyperlipidemia, unspecified; K21.9 Gastro-esophageal reflux disease without esophagitis; E11.65 Type 2 diabetes mellitus with hyperglycemia; E11.40 Type 2 diabetes mellitus with diabetic neuropathy, unspecified; N40.0 Benign prostatic hyperplasia without lower urinary tract symptoms; M79.7 Fibromyalgia; I69.954 Hemiplegia and hemiparesis following unspecified cerebrovascular disease affecting left non-dominant side; E03.9 Hypothyroidism, unspecified; F41.9 Anxiety disorder, unspecified; F32.A Depression, unspecified; M19.90 Unspecified osteoarthritis, unspecified site; Z20.822 Contact with and (suspected) exposure to COVID-19; Z95.0 Presence of cardiac pacemaker; Z95.1 Presence of aortocoronary bypass graft; Z79.4 Long term (current) use of insulin; Z79.01 Long term (current) use of anticoagulants; Z79.82 Long term (current) use of aspirin; Z79.84 Long term (current) use of oral hypoglycemic drugs; Z79.899 Other long term (current) drug therapy; Z87.891 Personal history of nicotine dependence; Z89.512 Acquired absence of left leg below knee; Z89.511 Acquired absence of right leg below knee; Z90.49 Acquired absence of other specified parts of digestive tract; Z82.49 Family history of ischemic heart disease and other diseases of the circulatory system; Z82.3 Family history of stroke; Z83.3 Family history of diabetes mellitus
CPT/HCPCS: 93005; 85025; 80048; 36415; 81003; 84484; 83690; 80307; 71045; 96375; 96372; 96374; 99285; U0003; J1940; J1170; J2405; G0378 ×2

== ENCOUNTER 2022-02-14 10:10 | Emergency (ER) | payer OTHER ==
[~2022-02-14 10:10] MED LIST: PHENYLEPHRINE 0.5% NOSE 15ML NAS ONE
--- OUTSIDE RECORDS SUMMARY | 2022-02-14 10:21 | XMS REPORT | Continuity of Care Document ---
:1960 Author Organization [facility] t Address [address] [place] [address] Care Team Providers Name Role Phone MONIKA HALL MD Primary Care Physician [id number] Attending Clinician Unavailable Harshal Zhu Attending Clinician Unavailable Finn Shah Attending Clinician Unavailable Josselyn Harding RN Attending Clinician Unavailable MARTHA ROWE Attending Clinician Unavailable Ana Maria Meza DO Attending Clinician Martha Rowe MD Attending Clinician Troy KU Attending Clinician Unavailable Troy Wahl [...] Clinician Unavailable NICHELLE PALACIOS Attending Clinician Unavailable [id number] Admitting Clinician Unavailable Nika Martin Admitting Clinician Unavailable KNOW, DOES_NOT Admitting Clinician Unavailable Physician, No Primary or Family Admitting Clinician UnavailMARTHA Balbuena Admitting Clinician Unavailable Martha Rowe MD Admitting Clinician Troy KU Admitting Clinician Unavailable MIHAELA MARTIN Admitting Clinician Unavailable OC BRYSON Admitting Clinician Unavailable LIZETT WEST Admitting Clinician Unavailable [place] Admitting Clinician Unavailable Fede Carrera Admitting Clinician Unavailable Johnie Montanez Admitting Clinician Unavailable ALEXIS COX Admitting Clinician Unavailable NICHELLE PALACIOS Admitting Clinician Unavailable Payers Payer Name Policy Type Policy Number Effective Date Expiration Date S ource [facility] [id number] Blueliv [id number] 2018spring 00:00:00 [employer] [id number] 2004 LUCY Frankel 00:00:00 [facility] Problems Condition Condition Condition Status Onset Resolution Last Treating Co mments Source Name Details Category Date Date Treatment Clinician Date NSVT NSVT Disease Active Univers (nonsustai (nonsustai 9-22 it y of deisy deisy 00:00: [place] ventricula ventricula 00 Me dical r r Branch tachycardi tachycardi a) a) AMS AMS Disease Active Univers (altered (altered [...] ch congestive congestive heart heart failure failure Acute on Acute on Disease Active Unive rs chronic chronic 2-08 ity of combined combined 00:00: [place] systolic systolic 00 Medica l and and Branch diastolic diastolic congestive congestive heart heart failure failure Hypervolem Hypervolem Disease Active U nivers ia ia 2-07 ity of 00:00: [place] 00 Medical Branch Pulmonary Pulmonary Disease Active Uni vers hypertensi hypertensi 8-16 it y of on on 00:00: [place] 00 Medical Branch IRVING IRVING Disease Active Univers (dyspnea (dyspnea 8-15 ity of on on 00:00: [place] exertion) exertion) 00 [facility] Branch Pleural Pleural Disease Active Univers effusion, effusion, 8-13 [place] of bilateral bilateral 00:[place] CHF CHF Disease Active Univers (congestiv (congestiv 5-05 it y of e heart e heart 00:00: [place] failure), failure), 00 [facility] NYHA class NYHA class Br anch I, [...] 00 Medical Branch Osteomyeli Osteomyeli Disease Active 2020- U nivers tis tis 0-26 ity of 00:00: Medical Branch Preop Preop Disease Active 2019- Univers cardiovasc cardiovasc 0-26 it y of ular exam ular exam 00:00: s Medical Branch KALYN (acute KALYN (acute Disease Active 2019-05 U nivers kidney kidney 0-26 ity of injury) injury) 00:00: Medical Branch Left foot Left foot Disease Active 2019-05 Overview: Univers pain pain 0-25 Formattin ity of 00:00: g of this 00 note Medical might be Branch different from the original. Added automatic ally from request for surgery [id number] Troponin I Troponin I Disease Active 2019- U nivers above above 9-16 ity of reference reference 00:00: s range range 00 Medical Branch Pleural Pleural Disease Active 2020- Univers effusion effusion 9-15 ity of 00:00: Medical Branch Elevated Elevated Disease Active 2019- [...] left 6-27 ity of foot foot 00:00: Medical Branch Pacemaker Pacemaker Disease Active 2020- Uni vers 3-18 ity of 00:00: 00 Medical Branch PAF PAF Disease Active 2020- Univers (paroxysma (paroxysma 3-18 it y of l atrial l atrial 00:00: [place] fibrillati fibrillati 00 Me dical on) on) Branch Abdominal Abdominal Disease Active 2020-0 Uni vers pain pain 2-27 ity of 00:00: Medical Branch Pacemaker Pacemaker Disease Active 2020- Uni vers malfunctio malfunctio 2-04 it y of n n 00:00: [place] 00 Medical Branch Cellulitis Cellulitis Disease Active 2018-05 U nivers 1-19 ity of 00:00: [place] 00 Medical Branch Arterioven Arterioven Disease Active U nivers ous ous 9-25 ity of fistula of fistula of 00:00: [place] right right 00 Medical femoral femoral Branch vessels vessels NSTEMI NSTEMI Disease Active Univers (non-ST (non-ST 9-05 ity of elevated elevated 00:00: [place] myocardial myocardial 00 Me dical infarction infarction Br anch ) ) Coronary Coronary Disease Active Unive rs artery artery 8 ity of disease disease 00:00: [place] involving involving 00 Medi uriel [place] Branch coronary coronary artery of artery of [place] heart with heart with angina angina pectoris pectoris Type 2 Type 2 Disease Active Univers diabetes diabetes 8 ity of mellitus mellitus 00:00: [place] without without 00 Medical complicati complicati Br anch on, on, without without long-term long-term current current use of use of insulin insulin Essential Essential Disease Active Uni vers hypertensi hypertensi 8 it y of on on 00:00: [place] 00 Medical Branch Other Other Disease Active Univers hyperlipid hyperlipid 8 it y of emia emia 00:00: [place] Medical [facility] Stroke Stroke Disease Active Univers 5-12 ity of 00:00: [place] 00 Medical Branch Left-sided Left-sided Disease Active U nivers weakness weakness 5-11 ity of 00:00: [place] [facility] Left sided Left sided Disease Active U nivers numbness numbness 5-11 ity of 00:00: [place] 00 Medical Branch S/P admn S/P admn Disease Active Unive rs tPA in tPA in 4-11 ity of diff fac diff fac 00:00: [place] w/n last w/n last 00 Medica l 24 hr bef 24 hr bef Bran ch adm to adm to crnt fac crnt fac Unstable Unstable Disease Active Unive rs angina angina 4-10 ity of 00:00: [place] 00 Medical Branch Atypical Atypical Disease Active Unive rs chest pain chest pain 2-22 it y of 00:00: [place] 00 Medical Branch Chest pain Chest pain Problem [facility] Coronary CAD Problem Active [facility] (coronary [facility] disease artery Patient disease) [facility] Diabetic DKA Problem Active [facility] ketoacidos (diabetic Esme es is ketoacidos Patien t es) [facility] Hyperglyce Hyperglyce Problem Active [facility] bambi bambi [facility] Hypertensi Hypertensi Problem Active [facility] on on [facility] Pancreatit Pancreatit Problem Active [facility] is is [facility] Uncontroll Uncontroll Problem Active [facility] ed ed [facility] diabetes diabetes Patien t mellitus mellitus [facility] Allergies, Adverse Reactions, Alerts Allergy Allergy Status Severity Reaction(s) Onset Inactive Treating Comm ents Source Name Type Date Date Clinician No Known DA Active U [facility] Allergie 3-22 [place] 00:00: d 00 [facility] No Known DA Active U [facility] Allergie 3-22 [place] 00:00: d 00 [facility] No Known DA Active U 2017- [facility] Allergie 2-31 Clear s 00:00: [place] 00 [facility] No Known DA Active U 2017- [facility] Allergie 2-31 Clear s 00:00: [place] 00 [facility] No Known DA Active U [facility] Allergie 3-26 [place] 00:00: e 00 [facility] NO KNOWN Drug Active Univers ALLERGIE Class ity of S [place] [facility] Social History Social Habit Start Date Stop Date Quantity Comments Source History of Passive smoker University of tobacco use [place] [facility] History [facility] University o f Alcohol Frequency [place] M edical Branch History SDMI University o f Alcohol Std [place] Medical Drinks Branch History [facility] University o f Alcohol Binge [place] Medic al Branch History SDOH Food 2022-02-11 2022-02-11 1 Univers ity of Worry 00:00:00 00:00:00 [place] [facility] History SDOH Food 2022-02-11 2022-02-11 1 Univers ity of Scarcity 00:00:00 00:00:00 [place] [facility] History SDOH 2022-02-11 2022-02-11 2 University o f Transport Med 00:00:00 00:00:00 [place] Medic al Branch History SDOH 2022-02-11 2022-02-11 2 University o f Transport Non-Med 00:00:00 00:00:00 [facility] edical [place] Exposure to 2022-01-30 2022-02-09 Not sure University SARS-CoV-2 00:00:00 20:09:00 [facility] (event) [place] Tobacco use and 2022-02-09 2022-02-09 Smokeless tobacco Un iversity of exposure 00:00:00 00:00:00 non-user [facility] Alcohol intake 2022-02-09 2022-02-09 1.71 /d University of 00:00:00 00:00:00 [facility] Tobacco Comment 2022-02-09 2022-02-09 quit 15 years ago Un iversity of 00:00:00 00:00:00 [facility] Education 2021-10-27 2021-10-27 9 [place] of 00:00:00 00:00:00 [facility] History SDOH 2020-03-16 2020-03-16 3 University o f Financial 00:00:00 00:00:00 [facility] Alcohol Comment 2019-07-18 2019-07-18 quit drinking [facility] of 00:00:00 00:00:00 2014 but drank [facility] heavily before Branch this Sex Ass[birth year] At [birth year] LUCY Sanders 00:00:00 00:00:00 [facility] Smoking Status Start Date Stop Date Source Ex-smoker 2022-02-09 00:00:00 2022-02-09 00:00:00 [facility] [place] [facility] Medications Ordered Filled Start Stop Current Ordering Indication Dosage Frequency Signature Comments Components Source Medication Medication Date Date Medication? Clinician (SIG) Name Name aspirin 81 2021- Yes [id number] 81mg Take 1 Univers mg chewable 9-23 10-24 tablet by it y of tablet 00:00: 04:59 mouth [place] 00 :00 daily with Medical breakfast Branch for 30 days. glipiZIDE 5 2021- Yes [id number] 5mg Take 1 Univers mg tablet 9-23 10-24 tablet by ity of 00:00: 04:59 mouth in [place] 00 :00 the Medical morning Branch for 30 days. levothyroxi 2021- Yes [id number] 50ug Take 1 Univers ne 50 mcg 9-23 10-24 tablet by ity of tablet 00:00: 04:59 mouth [place] 00 :00 every Medical morning Branch for 30 days. lisinopriL 2021- Yes [id number] 2.5mg Take 1 Univers 2.5 mg 9-23 10-24 tablet by ity of tablet 00:00: 04:59 mouth in [place] 00 :00 the Medical morning Branch for 30 days. spironolact 2021- Yes [id number] 25mg Take 1 Univers one 25 mg 9-23 10-24 tablet by ity of tablet 00:00: 04:59 mouth in [place] 00 :00 the Medical morning Branch for 30 days. tamsulosin 2021- Yes [id number] .4mg Take 1 Univers 0.4 mg 24 9-23 10-24 capsule by ity of hr capsule 00:00: 04:59 mouth in [facility] 00 :00 the Medical morning Branch for 30 days. aspirin 81 2021- Yes [id number] 81mg Take 1 Univers mg chewable 9-23 10-24 tablet by it y of tablet 00:00: 04:59 mouth [place] 00 :00 daily with [facility] breakfast Branch for 30 days. glipiZIDE 5 2021- Yes [id number] 5mg Take 1 Univers mg tablet 9-23 10-24 tablet by ity of 00:00: 04:59 mouth in [place] 00 :00 the Medical morning Branch for 30 days. levothyroxi 2021- Yes [id number] 50ug Take 1 Univers ne 50 mcg 9-23 10-24 tablet by ity of tablet 00:00: 04:59 mouth [place] 00 :00 every Medical morning Branch for 30 days. lisinopriL 2021- Yes [id number] 2.5mg Take 1 Univers 2.5 mg 9-23 10-24 tablet by ity of tablet 00:00: 04:59 mouth in [place] 00 :00 the Medical morning Branch for 30 days. spironolact 2021- Yes [id number] 25mg Take 1 Univers one 25 mg 9-23 10-24 tablet by ity of tablet 00:00: 04:59 mouth in [place] 00 :00 the Medical morning Branch for 30 days. tamsulosin 2021- Yes [id number] .4mg Take 1 Univers 0.4 mg 24 02-11 capsule by ity of hr capsule 00:00: 04:59 mouth in [place] 00 :00 the Medical morning Branch for 30 days. sulfur 2021- No [id number] 5mL 5 mL, Unive rs hexafluorid 02-10 Intravenou i ty of e microsphr 16:30: 16:30 s, ONCE, 1 [place] (LUMASON) 00 :00 dose, On Medica l injection 5 [place] Branch mL 02/10/22 at 1130, Routine
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 approving Restricted medication : TERRI CASTILLO traMADoL Yes 50mg 50 mg, Univers (ULTRAM) 02-10 Oral, ity of tablet 50 15:10: Q6HPRN, [place] mg 57 Starting Medical on Annie Branch 02/10/22 at 1010, Until Discontinu ed, Routine, Pain (scale 7-10) lisinopriL Yes 2.5mg 2.5 mg, Uni vers (PRINIVIL,Z 02-10 Oral, ity of ESTRIL) 14:00: DAILY, [place] tablet 2.5 00 First dose Med ical mg on [place] Branch 02/10/22 at 0900, Until Discontinu ed, Routine glipiZIDE Yes 5mg 5 mg, Univers (GLUCOTROL) 02-10 Oral, ity of tablet 5 mg 14:00: DAILY, [place] 00 First dose Medical on [place] Branch 02/10/22 at 0900, Until Discontinu ed, Routine enoxaparin Yes 30mg 30 mg, Unive rs (LOVENOX) 02-10 Subcutaneo ity of injection 14:00: us, DAILY, [place] 30 mg 00 First dose Medical on [place] Branch 02/10/22 at 0900, Until Discontinu ed, Routine levothyroxi Yes 50ug 50 mcg, Uni vers ne 02-10 Oral, ity of (SYNTHROID) 11:00: QAM-0600, [place] tablet 50 00 First dose Medi uriel mcg on [place] Branch 02/10/22 at 0600, Until Discontinu ed, Routine morpHINE (2 2021- No 2mg 2 mg, Slow Univers mg/mL) 02-10 IV Push, ity of injection 2 08:45: 08:01 ONCE, 1 [place] mg 00 :00 dose, On Medical [place] Branch 02/10/22 at 0345, Routine furosemide 2021-0 Yes 20mg 20 mg, IV Un char[place] (LASIX) 02-10 Push, Q8H, ity of injection 04:15: First dose [place] 20 mg 00 on Mon [facility] 02/09/22 at Branch 2315, Until Discontinu ed, Routine spironolact 2021-0 Yes 25mg 25 mg, Univ ers one 02-10 Oral, ity of (ALDACTONE) 04:15: DAILY, [place] tablet 25 00 First dose Medi uriel mg on [facility] Branch 02/09/22 at 2315, Until Discontinu ed, Routine atorvastati 0 Yes 40mg 40 mg, Univ ers n (LIPITOR) 02-10 Oral, QHS, it y of tablet 40 04:15: First dose [place] mg 00 on Mon Medical 02/09/22 at Branch 2315, Until Discontinu ed, Routine aspirin 2021-0 Yes 81mg 81 mg, Univers chewable 02-10 Oral, QAM ity of tablet 81 04:15: WITH [place] mg 00 BREAKFAST, Medical First dose Branch on Mon02/09/22 at 2315, Until Discontinu ed, Routine metoprolol 0 Yes 12.5mg 12.5 mg, U nivers succinate 02-10 Oral, ity of XL (TOPROL 04:15: DAILY, [place] XL) tablet 00 First dose Med ical 12.5 mg on [facility] Branch 02/09/22 at 2315, Until Discontinu ed, Routine tamsulosin 2021-0 Yes .4mg 0.4 mg, Univ ers (FLOMAX) 02-10 Oral, ity of capsule 0.4 04:15: DAILY, [place] mg 00 First dose Medical on Mon Branch 02/09/22 at 2315, Until Discontinu ed, Routine gabapentin 2021-0 Yes 300mg 300 mg, Uni vers (NEURONTIN) 02-10 Oral, BID, it y of capsule 300 04:15: First dose [place] mg 00 on Mon [facility] 02/09/22 at Branch 2315, Until Discontinu ed, Routine sennosides Yes 8.6mg 8.6 mg, Uni vers (SENOKOT) 02-10 Oral, BID, ity of tablet 8.6 04:15: First dose [place] mg 00 on [facility] Medical 02/09/22 at Branch 2315, Until Discontinu ed, Routine docusate Yes 100mg 100 mg, Unive rs (COLACE) 02-10 Oral, BID, ity o f capsule 100 04:15: First dose [place] mg 00 on Mon Medical 02/09/22 at Branch 2315, Until Discontinu ed, Routine Sliding Yes Subcutaneo Univ ers Scale 02-10 us, TID ity of Insulin - 04:15: MEALS+HS, Juan J as Lispro 00 First dose Medical (HumaLOG) + on Mon Branch Fs[facility] 02/09/22 at Testing 2315, Until Discontinu ed, Routine ondansetron Yes 4mg 4 mg, Slow Univers (ZOFRAN 02-10 IV Push, ity of (PF)) 04:04: Q6HPRN, [place] injection 4 01 Starting Medi uriel mg on Mon Branch 02/09/22 at 2304, Until Discontinu ed, Routine, Nausea and Vomiting (N/V) glucagon Yes 1mg 1 mg, Univers (GLUCAGEN 02-10 Intramuscu ity of DIAGNOSTIC 04:01: [place], PRN, [place] KIT) 56 Starting Medical injection 1 on Mon Branch mg 02/09/22 at 2301, Until Discontinu ed, PIERRE, Blood Glucose < or = 70 mg/dL and patient is unable to swallow or has mental changes. dextrose 50 Yes 25mL 25 mL, Univ ers % in water 02-10 Slow IV ity of (D50W) 04:01: Push, PRN, [place] injection 56 Starting Medica l 25 mL on [facility] Branch 02/09/22 at 2301, Until Discontinu ed, PIERRE, Blood Glucose < or = 70 mg/dL and patient is unable to swallow or has mental status changes. atorvastati 202- Yes [id number] 40mg Take 1 Univers n 40 mg 02-10 tablet by ity of tablet 00:00: 04:59 mouth at [place] 00 :00 bedtime Medical for 30 Branch days. metoprolol 2021- Yes [id number] 12.5mg Take 0.5 Univers succinate 02-10 tablets by ity of XL 25 mg 24 00:00: 04:59 mouth in [place] hr tablet 00 :00 the Medical morning Branch for 30 days. atorvastati 2021- Yes [id number] 40mg Take 1 Univers n 40 mg 02-10 tablet by ity of tablet 00:00: 04:59 mouth at [place] 00 :00 bedtime Medical for 30 Branch days. metoprolol 2021- Yes [id number] 12.5mg Take 0.5 Univers succinate 02-10 tablets by ity of XL 25 mg 24 00:00: 04:59 mouth in [place] hr tablet 00 :00 the Medical morning Branch for 30 days. traMADoL 50 2021- Yes [id number] 50mg Take 1 Uni vers mg tablet 02-10 tablet by ity of 00:00: 04:59 mouth [place] 00 :00 every 6 Medical (six) Branch hours as needed for Pain (scale 7-10) for up to 7 days. Indication s: acute pain traMADoL 50 2021- Yes [id number] 50mg Take 1 Uni vers mg tablet 02-10 tablet by ity of 00:00: 04:59 mouth [place] 00 :00 every 6 Medical (six) Branch hours as needed for Pain (scale 7-10) for up to 7 days. Indication s: acute pain HYDROcodone 2021- No 1{tbl} 1 tablet, Univers -acetaminop 11-09 Oral, ity of hen (NORCO) 22:30: 21:37 ONCE, 1 [place] 10-325 mg 00 :00 dose, On Medica l tablet 1 e Branch tablet 11/09/21 at 1730, Routine ketorolac [...] 00 :00 dose, On Medica l tablet 1 Fri Branch tablet 11/05/21 at 0215, Routine ketorolac [...] at 0215, 1 mL gabapentin 2021- No [id number] 300mg Take 1 Univers 300 mg 11-05 capsule by ity of capsule 00:00: 04:59 mouth 3 [place] 00 :00 (three) Medical times Branch daily for 10 days. gabapentin 2021- No [id number] 300mg Take 1 Univers 300 mg 11-05 capsule by ity of capsule 00:00: 04:59 mouth 3 [place] 00 :00 (three) Medical times Branch daily for 10 days. aspirin 81 2021- No [id number] 81mg Take 1 Univers mg chewable 6-16 -17 tablet by it y of tablet 00:00: 04:59 mouth [place] 00 :00 daily for Medical 30 days. Branch aspirin 81 2021- No [id number] 81mg Take 1 Univers mg chewable 6-16 07-17 tablet by it y of tablet 00:00: 04:59 mouth [place] 00 :00 daily for Medical 30 days. Branch aspirin 81 2021- No [id number] 81mg Take 1 Univers mg chewable 6-16 07-17 tablet by it y of tablet 00:00: 04:59 mouth [place] 00 :00 daily for Medical 30 days. Branch proMETHazin 0 Yes [id number] 25mg Take 1 Univers e 25 mg 6-03 tablet by ity of tablet 00:00: mouth [place] 00 every 6 Medical (six) Branch hours as needed for Nausea and Vomiting (N/V). proMETHazin 0 Yes [id number] 25mg Take 1 Univers e 25 mg 6-03 tablet by ity of tablet 00:00: mouth [place] 00 every 6 Medical (six) Branch hours as needed for Nausea and Vomiting (N/V). proMETHazin 0 Yes [id number] 25mg Take 1 Univers e 25 mg 6-03 tablet by ity of tablet 00:00: mouth [place] 00 every 6 Medical (six) Branch hours as needed for Nausea and Vomiting (N/V). proMETHazin Yes [id number] 25mg Take 1 Univers e 25 mg 6-03 tablet by ity of tablet 00:00: mouth [place] 00 every 6 Medical (six) Branch hours as needed for Nausea and Vomiting (N/V). proMETHazin 2021-0 Yes [id number] 25mg Take 1 Univers e 25 mg 6-03 tablet by ity of tablet 00:00: mouth [place] 00 every 6 Medical (six) Branch hours as needed for Nausea and Vomiting (N/V). fenofibrate 2021- No [id number] 134mg Take 1 Univers micronized 5-31 - capsule by it y of 134 mg 00:00: 04:59 mouth [place] capsule 00 :00 daily for Medical 30 days. Branch lisinopriL 2021- No [id number] 2.5mg Take 1 Univers 2.5 mg 5-31 -01 tablet by ity of tablet 00:00: 04:59 mouth [place] 00 :00 daily for Medical 30 days. Branch fenofibrate 2021- No [id number] 134mg Take 1 Univers micronized 5-31 - capsule by it y of 134 mg 00:00: 04:59 mouth [place] capsule 00 :00 daily for Medical 30 days. Branch lisinopriL No [id number] 2.5mg Take 1 Univers 2.5 mg 10-19- tablet by ity of tablet 00:00: 04:59 mouth [place] 00 :00 daily for Medical 30 days. [place] fenofibrate No [id number] 134mg Take 1 Univers micronized 10-19- capsule by it y of 134 mg 00:00: 04:59 mouth [place] capsule 00 :00 daily for Medical 30 days. [place] lisinopriL No [id number] 2.5mg Take 1 Univers 2.5 mg 10-19- tablet by ity of tablet 00:00: 04:59 mouth [place] 00 :00 daily for Medical 30 days. [place] furosemide 2021- No [id number] 40mg Take 1 Univers 40 mg -18 11-30 tablet by ity of tablet 00:00: 04:59 mouth [place] 00 :00 every Medical morning Branch and evening for 30 days. apixaban 5 2021- No [id number] 5mg Take 1 Univ ers mg tablet 10-18-30 tablet by ity of 00:00: 04:59 mouth 2 [place] 00 :00 (two) Medical times [place] daily for 30 days. Indication s: atrial fibrillati on calcitrioL 2021- No [id number] .5ug Take 1 Univers 0.5 mcg -18 11-30 capsule by ity o f capsule 00:00: 04:59 mouth [place] 00 :00 daily for Medical 30 days. [place] insulin NPH 2021- No [id number] 5U inject 5 Univers (HUMULIN N 5-30 -30 Units ity of NPH U-100 00:00: 04:59 under the [place] INSULIN) 00 :00 skin every Medic al 100 unit/mL evening Branc h injection for 30 days. atorvastati 2021- No [id number] 40mg Take 1 Univers n 40 mg 5-30 -30 tablet by ity of tablet 00:00: 04:59 mouth at [place] 00 :00 bedtime Medical for 30 Branch days. carvediloL 2021- No [id number] 3.125mg Take 1 Univers 3.125 mg 5-30 06-30 tablet by ity o f tablet 00:00: 04:59 mouth 2 [place] 00 :00 (two) Medical times Branch daily with meals for 30 days. furosemide 2021- No [id number] 40mg Take 1 Univers 40 mg 5-30 [...] s: atrial fibrillati on calcitrioL 2021- No [id number] .5ug Take 1 Univers 0.5 mcg 5-30 06-30 capsule by ity o f capsule 00:00: 04:59 mouth [place] 00 :00 daily for Medical 30 days. Branch insulin NPH 2021- No [id number] 5U inject 5 Univers (HUMULIN N 5-30 06-30 Units ity of NPH U-100 00:00: 04:59 under the [place] INSULIN) 00 :00 skin every Medic al 100 unit/mL evening Branc h injection for 30 days. atorvastati 2021- No [id number] 40mg Take 1 Univers n 40 mg 5-30 06-30 tablet by ity of tablet 00:00: 04:59 mouth at [place] 00 :00 bedtime Medical for 30 Branch days. carvediloL 2021- No [id number] 3.125mg Take 1 Univers 3.125 mg 5-30 06-30 tablet by ity o f tablet 00:00: 04:59 mouth 2 [place] 00 :00 (two) Medical times [place] daily with meals for 30 days. furosemide 2021- No [id number] 40mg Take 1 Univers 40 mg 5-30 06-30 tablet by ity of tablet 00:00: 04:59 mouth [place] 00 :00 every Medical morning Branch and evening for 30 days. apixaban 5 2021- No [id number] 5mg Take 1 Univ ers mg tablet 5-30 06-30 tablet by ity of 00:00: 04:59 mouth 2 [place] 00 :00 (two) Medical times Branch daily for 30 days. Indication s: atrial fibrillati on calcitrioL 2021- No [id number] .5ug Take 1 Univers 0.5 mcg 10-18 capsule by ity o f capsule 00:00: 04:59 mouth [place] 00 :00 daily for Medical 30 days. Branch insulin NPH 2021- No [id number] 5U inject 5 Univers (HUMULIN N 5-30 -30 Units ity of NPH U-100 00:00: 04:59 under the [place] INSULIN) 00 :00 skin every Medic al 100 unit/mL evening Branc h injection for 30 days. atorvastati 2021- No [id number] 40mg Take 1 Univers n 40 mg 10-18- tablet by ity of tablet 00:00: 04:59 mouth at [place] 00 :00 bedtime Medical for 30 Branch days. carvediloL 2021- No [id number] 3.125mg Take 1 Univers 3.125 mg 10-18 tablet by ity o f tablet 00:00: 04:59 mouth 2 00 :00 (two) Medical times Branch daily with meals for 30 days. metFORMIN Yes [id number] 500mg Take 1 U nivers 500 mg 3-02 tablet by ity of tablet 00:00: mouth [place] (two) Medical times Branch daily with meals. metFORMIN Yes [id number] 500mg Take 1 U nivers 500 mg 3-02 tablet by ity of tablet 00:00: mouth [place] (two) Medical times Branch daily with meals. metFORMIN Yes [id number] 500mg Take 1 U nivers 500 mg 3-02 tablet by ity of tablet 00:00: mouth [place] (two) Medical times Branch daily with meals. metFORMIN Yes [id number] 500mg Take 1 U nivers 500 mg 3-02 tablet by ity of tablet 00:00: mouth [place] (two) Medical times Branch daily with meals. metFORMIN Yes [id number] 500mg Take 1 U nivers 500 mg 3-02 tablet by ity of tablet 00:00: mouth 2 [place] (two) Medical times Branch daily with meals. albuterol Yes [id number] 2{puff} Inhale 2 Univers 90 2-21 Puffs 2 ity of mcg/actuati 00:00: (two) [place] on inhaler 00 times Medical daily. Branch collagenase 0 Yes [id number] Use as Univers 250 2-21 directed ity of unit/gram 00:00: by office Juan J as ointment 00 Medical Branch cyclobenzap Yes [id number] 10mg Take 1 Univers rine 10 mg 2-21 tablet by ity of tablet 00:00: mouth 2 [place] 00 (two) Medical times Branch daily as needed for Muscle Spasms. dextrometho Yes [id number] 10mL Take 10 mL Univers rphan-guaif 2-21 [...] Pain (scale 4-6). melatonin 3 0 Yes [id number] 3mg Take 1 Univers mg tablet 2-21 tablet by ity o f 00:00: mouth at [place] 00 bedtime. Medical Branch ondansetron 0 Yes [id number] 4mg Take 1 Univers 4 mg 2-21 tablet by ity of disintegrat 00:00: mouth [place] ing tablet 00 every 8 Medica l (eight) Branch hours as needed for Nausea and Vomiting (N/V). albuterol Yes [id number] 2{puff} Inhale 2 Univers 90 2-21 Puffs 2 ity of mcg/actuati 00:00: (two) [place] on inhaler 00 times Medical daily. Branch collagenase Yes [id number] Use as Univers 250 2-21 directed ity of unit/gram 00:00: by office Juan J as ointment 00 Medical Branch cyclobenzap Yes [id number] 10mg Take 1 Univers rine 10 mg 2-21 tablet by ity of tablet 00:00: mouth 2 [place] 00 (two) Medical times Branch daily as needed for Muscle Spasms. dextrometho Yes [id number] 10mL Take 10 mL Univers rphan-guaif 2-21 [...] for Pain (scale 4-6). melatonin 3 Yes [id number] 3mg Take 1 Univers mg tablet 2-21 tablet by ity o f 00:00: mouth at [place] 00 bedtime. Medical Branch ondansetron Yes [id number] 4mg Take 1 Univers 4 mg 2-21 tablet by ity of disintegrat 00:00: mouth [place] ing tablet 00 every 8 Medica l (eight) Branch hours as needed for Nausea and Vomiting (N/V). albuterol Yes [id number] 2{puff} Inhale 2 Univers 90 2-21 Puffs 2 ity of mcg/actuati 00:00: (two) [place] on inhaler 00 times Medical daily. Branch collagenase Yes [id number] Use as Univers 250 2-21 directed ity of unit/gram 00:00: by office Juan J as ointment 00 Medical Branch cyclobenzap Yes [id number] 10mg Take 1 Univers rine 10 mg 2-21 tablet by ity of tablet 00:00: mouth 2 [place] 00 (two) Medical times Branch daily as needed for Muscle Spasms. dextrometho Yes [id number] 10mL Take 10 mL Univers rphan-guaif 2-21 [...] for Pain (scale 4-6). melatonin 3 Yes [id number] 3mg Take 1 Univers mg tablet 2-21 tablet by ity o f 00:00: mouth at [place] 00 bedtime. Medical Branch ondansetron Yes [id number] 4mg Take 1 Univers 4 mg 2-21 tablet by ity of disintegrat 00:00: mouth [place] ing tablet 00 every 8 Medica l (eight) Branch hours as needed for Nausea and Vomiting (N/V). albuterol Yes [id number] 2{puff} Inhale 2 Univers 90 2-21 Puffs 2 ity of mcg/actuati 00:00: (two) [place] on inhaler 00 times Medical daily. Branch collagenase Yes [id number] Use as Univers 250 2-21 directed ity of unit/gram 00:00: by office Juan J as ointment 00 Medical Branch cyclobenzap Yes [id number] 10mg Take 1 Univers rine 10 mg 2-21 tablet by ity of tablet 00:00: mouth 2 [place] (two) Medical times Branch daily as needed for Muscle Spasms. melatonin 3 Yes [id number] 3mg Take 1 Univers mg tablet 2-21 tablet by ity o f 00:00: mouth at [place] 00 bedtime. Medical Branch ondansetron Yes [id number] 4mg Take 1 Univers 4 mg 2-21 tablet by ity of disintegrat 00:00: mouth [place] ing tablet 00 every 8 Medica l (eight) Branch hours as needed for Nausea and Vomiting (N/V). albuterol Yes [id number] 2{puff} Inhale 2 Univers 90 2-21 Puffs 2 ity of mcg/actuati 00:00: (two) [place] on inhaler 00 times Medical daily. Branch collagenase Yes [id number] Use as Univers 250 2-21 directed ity of unit/gram 00:00: by office Juan J as ointment 00 Medical Branch cyclobenzap Yes [id number] 10mg Take 1 Univers rine 10 mg 2-21 tablet by ity of tablet 00:00: mouth 2 [place] 00 (two) Medical times Branch daily as needed for Muscle Spasms. melatonin 3 2021-0 Yes [id number] 3mg Take 1 Univers mg tablet 2-21 tablet by ity o f 00:00: mouth at [place] 00 bedtime. Medical Branch ondansetron Yes [id number] 4mg Take 1 Univers 4 mg -21 tablet by ity of disintegrat 00:00: mouth [place] ing tablet 00 every 8 Medica l (eight) Branch hours as needed for Nausea and Vomiting (N/V). dextrometho No [id number] 10mL Take 10 mL Univers rphan-guaif 07-12 by mouth ity of enesin 00:00: 00:00 every 6 [place] 10-100 mg/5 00 :00 (six) Medical mL solution hours as Bran ch needed for Cough. HYDROcodone No 1{tbl} Take 1 U nivers -acetaminop 07-12 tablet by it y of hen 5-325 00:00: 00:00 mouth [place] mg tablet 00 :00 every 6 Medical (six) Branch hours as needed for Pain (scale 4-6). Aspirin 81 Aspirin 81 2017- No Alexis [address] [facility] Mg Tab.chew Mg Tab.chew 10-26 Brooke Frankel 00:00: 00:00 Patient 00 :00 [facility] Diflunisal Diflunisal No Todd Wynn [address] [facility] (Dolobid) (Dolobid) 01-17 [facility] 500 Mg 500 Mg 00:00: 00:00 Patient Tablet, 500 Tablet, 500 00 :00 M edical Mg Oral Mg Oral Center Ondansetron Ondansetron No Todd Wynn [address] [facility] Hcl Hcl 01-17 [place] [facility] s (Zofran*) 4 (Zofran*) 4 00:00: 00:00 needed for Patient Mg Tablet, Mg Tablet, 00 :00 Nausea M edical 4 Mg 4 Mg Center Sublingual Sublingual Clopidogrel Clopidogrel Yes 75 Daily [...] Tablet Mg Tablet Day [facility] Patient Medical [place] Hydrocodone Hydrocodone Yes 1 Every [address] [facility] [facility] Bit/Acetami Bit/Acetami Hours as [facility] nophen nophen [facility] ([facility] Pain Medical 10-325 10-325 Center Tablet) 1 [...] Mg 20 Mg [facility] Capsule. Capsule.dr John [facility] Simvastatin Simvastatin Yes [address] 80 Mg 80 Mg [facility] Tablet Tablet Patient Medical Center Tamsulosin Tamsulosin Yes Daily [facility] Hcl 0.4 Mg Hcl 0.4 Mg Esme es Cap.er.24h Cap.er.24h Pat [facility] Tramadol Tramadol Yes 50 Four [...] Navid blanco Mg Oral Mg Oral :00 [facility] Insulin Insulin 2016- No 40 7AM &Hs [facility] Human Nph Human Nph 10-15 Luke s (Humulin N) (Humulin N) 00:00 Patient 100 100 :00 Medical Units/Ml Units/Ml [place] Ml, 40 Ml, 40 Sub-Q Sub-Q Naloxone [...] Manjula ent Mg Oral Mg Oral :00 [facility] Clindamycin Clindamycin 2016- No 300 Three [...] 06-17 [facility] Capsule., Capsule., 00:00 Patient :00 [facility] Insulin Insulin No 90 Twice [...] 25 Mg Oral 25 Mg Oral :00 [facility] Albuterol Albuterol No 90 As Needed [...] 00:00 Patient Mg Oral Mg Oral :00 [facility] Methocarbam Methocarbam No 500 Three [...] 00:00 Patient Mg Oral Mg Oral :00 [facility] Nitroglycer Nitroglycer 2015- No .4 [...] Manjula ent Gm Oral Gm Oral :00 [facility] Temazepam Temazepam [address] [address] (Restoril) (Restoril) 11-23 Theresa kes 30 Mg 30 Mg 00:00 Patient Capsule, 30 Capsule, 30 :00 M edical Mg Oral Mg Oral Center Tizanidine Tizanidine [address] Hcl 4 Mg Hcl 4 Mg 11-23 [facility] Capsule, 4 Capsule, 4 00:00 Pa tient Mg Oral Mg Oral :00 [facility] Trazodone Trazodone No [address] [facility] [address] Hcl 50 Mg Hcl 50 Mg 11-23 Luke s Tablet, 50 Tablet, 50 00:00 Pa tient Mg Oral Mg Oral :00 [facility] Venlafaxine Venlafaxine 37.[address] [facility] Hcl 37.5 Mg Hcl 37.5 Mg 11-23 Day [facility] Tablet, Tablet, 00:00 Patient 37.5 Tab 37.5 Tab :00 Medical Oral Oral Center Cyclobenzap Cyclobenzap [address] rine Hcl 10 rine Hcl 10 12-19 Times A [facility] Mg Tablet, Mg Tablet, 00:00 Day Pa tient 10 Mg Oral 10 Mg Oral :00 [facility] ical [place] Gabapentin Gabapentin [address] 300 Mg 300 Mg 12-19 Times A [facility] Capsule, Capsule, 00:00 Day Patien t 600 Mg Oral 600 Mg Oral :00 M [facility] Pregabalin Pregabalin 150 Twice A [facility] [...] Immunizations Ordered Filled Immunization Date Status Comments [facility] e Immunization Name Name Influenza Virus 2021-01-16 Completed Universit y of Vaccine 00:00:00 [facility] Influenza Virus 2021-01-16 Completed Universit y of Vaccine 00:00:00 [facility] Influenza Virus 2021-01-16 Completed Universit y of Vaccine 00:00:00 [facility] Influenza Virus 2021-01-16 Completed Universit y of Vaccine 00:00:00 [facility] Influenza Virus 2021-01-16 Completed Universit y of Vaccine 00:00:00 [facility] SARS-COV-2 COVID-19 2020-10-16 Completed Unive rsity of PEDRO/J&J VACCINE 00:00:00 [facility] SARS-COV-2 COVID-19 2020-10-16 Completed Unive rsity of PEDRO/J&J VACCINE 00:00:00 [facility] SARS-COV-2 COVID-19 2020-10-16 Completed Unive rsity of PEDRO/J&J VACCINE 00:00:00 [facility] SARS-COV-2 COVID-19 2020-10-16 Completed Unive rsity of PEDRO/J&J VACCINE 00:00:00 [facility] SARS-COV-2 COVID-19 2020-10-16 Completed Unive rsity of PEDRO/J&J VACCINE 00:00:00 [facility] Influenza Virus 2020-01-21 Completed Universit y of Vaccine 00:00:00 [facility] Influenza Virus 2020-01-21 Completed Universit y of Vaccine 00:00:00 [facility] Influenza Virus 2020-01-21 Completed Universit y of Vaccine 00:00:00 [facility] Influenza Virus 2020-01-21 Completed Universit y of Vaccine 00:00:00 [facility] Influenza Virus 2020-01-21 Completed Universit y of Vaccine 00:00:00 [facility] Zoster Vaccine 2019-07-17 Completed University of Recombinant 00:00:00 [facility] Zoster Vaccine 2019-07-17 Completed University of Recombinant 00:00:00 [facility] Zoster Vaccine 2019-07-17 Completed University of Recombinant 00:00:00 [facility] Zoster Vaccine 2019-07-17 Completed University of Recombinant 00:00:00 [facility] Zoster Vaccine 2019-07-17 Completed University of Recombinant 00:00:00 [facility] Td 2019-03-29 Completed University of 00:00:00 [facility] Td 2019-03-29 Completed University of 00:00:00 [facility] Td 2019-03-29 Completed University of 00:00:00 [facility] Td 2019-03-29 Completed University of 00:00:00 [facility] Td 2019-03-29 Completed University of 00:00:00 [facility] Influenza Virus 2018-02-18 Completed Universit y of Vaccine 00:00:00 [facility] Pneumococcal 2018-02-18 Completed University o f Polysaccharide, 00:00:00 [place] Med ical PPSV23 (PNEUMOVAX) Branch Influenza Virus 2018-02-18 Completed Universit y of Vaccine 00:00:00 [facility] Pneumococcal 2018-02-18 Completed University o f Polysaccharide, 00:00:00 [place] Med ical PPSV23 (PNEUMOVAX) Branch Influenza Virus 2018-02-18 Completed Universit y of Vaccine 00:00:00 [facility] Pneumococcal 2018-02-18 Completed University o f Polysaccharide, 00:00:00 [facility] ical PPSV23 (PNEUMOVAX) Branch Influenza Virus 2018-02-18 Completed Universit y of Vaccine 00:00:00 [facility] Pneumococcal 2018-02-18 Completed University o f Polysaccharide, 00:00:00 [facility] ical PPSV23 (PNEUMOVAX) Branch Influenza Virus 2018-02-18 Completed Universit y of Vaccine 00:00:00 [facility] Pneumococcal 2018-02-18 Completed University o f Polysaccharide, 00:00:00 [facility] ical PPSV23 (PNEUMOVAX) Branch Influenza Virus 2008-03-19 Completed Universit y of Vaccine 00:00:00 [facility] Pneumococcal 2008-03-19 Completed University o f Polysaccharide, 00:00:00 [place] Med ical PPSV23 (PNEUMOVAX) Branch Influenza Virus 2008-03-19 Completed Universit y of Vaccine 00:00:00 [facility] Pneumococcal 2008-03-19 Completed University o f Polysaccharide, 00:00:00 [place] Med ical PPSV23 (PNEUMOVAX) Branch Influenza Virus 2008-03-19 Completed Universit y of Vaccine 00:00:00 [facility] Pneumococcal 2008-03-19 Completed University o f Polysaccharide, 00:00:00 [place] Med ical PPSV23 (PNEUMOVAX) Branch Influenza Virus 2008-03-19 Completed Universit y of Vaccine 00:00:00 [facility] Pneumococcal 2008-03-19 Completed University o f Polysaccharide, 00:00:00 [place] Med ical PPSV23 (PNEUMOVAX) Branch Influenza Virus 2008-03-19 Completed Universit y of Vaccine 00:00:00 [facility] Pneumococcal 2008-03-19 Completed [place] o f Polysaccharide, 00:00:00 [place] Med ical PPSV23 (PNEUMOVAX) Branch Vital Signs Vital Name Observation Time Observation Value Comments Source Systolic blood 2022-02-10 105 mm[Hg] University of pressure 16:35:00 [facility] Diastolic blood 2022-02-10 57 mm[Hg] University o f pressure 16:35:00 [facility] Heart rate 2022-02-10 65 /min University of 16:35:00 [facility] Body temperature 2022-02-10 36.22 Sandy University of 16:35:00 [facility] Respiratory rate 2022-02-10 18 /min University of 16:35:00 [facility] Oxygen saturation 2022-02-10 98 /min University of in Arterial blood 16:35:00 [facility] by Pulse oximetry Branch Body weight 2022-02-10 74.98 kg University of 08:16:00 [facility] BMI 2022-02-10 25.89 kg/m2 University of 08:16:00 [facility] Body height 2022-02-10 170.2 cm Height before University of 01:18:00 Bilat BKA [facility] Systolic blood 2021-11-09 124 mm[Hg] University of pressure 23:00:00 [facility] Diastolic blood 2021-11-09 69 mm[Hg] University o f pressure 23:00:00 [facility] Heart rate 2021-11-09 72 /min University of 23:00:00 [facility] Respiratory rate 2021-11-09 25 /min University of 23:00:00 [facility] Oxygen saturation 2021-11-09 98 /min University of in Arterial blood 23:00:00 [place] Medi uriel by Pulse oximetry Branch Body temperature 2021-11-09 37.22 Sandy University of 20:28:39 [facility] Body height 2021-11-09 170.2 cm University of 20:16:00 [facility] Body weight 2021-11-09 71.215 kg University of 20:16:00 [facility] BMI 2021-11-09 24.59 kg/m2 University of 20:16:00 [facility] Systolic blood 2021-11-05 134 mm[Hg] University of pressure 10:00:00 [facility] Diastolic blood 2021-11-05 78 mm[Hg] [facility] [place] [facility] pressure 10:00:00 [facility] Heart rate 2021-11-05 81 /min [facility] 10:00:00 [facility] Body temperature 2021-11-05 36.28 Sandy [facility] 08:10:00 [facility] Respiratory rate 2021-11-05 18 /min [facility] 08:00:00 [facility] Oxygen saturation 2021-11-05 99 /min [facility] Arterial blood 08:00:00 [facility] by Pulse oximetry [place] Body height 2021-11-05 170.2 cm [facility] 05:48:00 [facility] Body weight 2021-11-05 71.215 kg [facility] 05:48:00 [facility] BMI 2021-11-05 24.59 kg/m2 [facility] 05:48:00 [facility] Procedures Procedure Date / Time Performing Clinician Source Performed TRANSTHORACIC ECHO (TTE) 2022-02-10 13:16:[address] [facility] COMPLETE W/ CONTRAST Medical Bra nch PHOSPHORUS 2022-02-10 10:22:00 Martha Rowe [facility] MAGNESIUM 2022-02-10 10:22:00 Jae daisy [facility] TROPONIN I 2022-02-10 10:22:00 Martha Rowe [facility] COMP. METABOLIC PANEL 2022-02-10 10:22:00 Martha Rowe [facility] ([id number]) [facility] CBC WITH DIFF 2022-02-10 10:22:00 Martha Rowe [facility] CREATINE KINASE 2022-02-10 04:37:00 Martha Rowe [facility] URIC ACID 2022-02-10 04:37:00 Martha Rowe [facility] FERRITIN SERUM 2022-02-10 04:37:00 Martha Rowe [facility] FOLATE 2022-02-10 04:37:00 Jae daisy [facility] TROPONIN I 2022-02-10 04:37:00 Jae daisy [facility] THYROID STIMULATING 2022-02-10 04:37:00 Martha Rowe [facility] HORMONE [facility] LIPID PANEL 2022-02-10 04:37:00 Jae daisy [facility] ([id number])(TOTAL Medical Branch CHOLESTEROL, TRIGLYCERIDES, HDL) IRON PANEL 2022-02-10 04:37:00 Jae [facility] GLYCOSYLATED HEMOGLOBIN 2022-02-10 04:37:00 Martha Rowe [facility] (A1C) [facility] N-TERMINAL PRO-BNP 2022-02-10 04:37:00 J[facility] VITAMIN D, 25-OH 2022-02-10 04:37:00 Jae [facility] COVID-19 (ID NOW RAPID 2022-02-10 04:37:00 Martha Rowe [facility] TESTING) [facility] B-TYPE NATRIURETIC 2022-01-30 18:10:00 [facility] (BNP) Center XR CHEST 1 VW 2021-11-09 21:07:00 Troy Ku [facility] POCT GLUCOSE (AUTOMATED) 2021-11-09 20:25:00 Troy Ku [facility] MAGNESIUM 2021-11-09 20:19:00 Troy Ku [facility] TROPONIN I 2021-11-09 20:19:00 Troy Ku Mckenzie [facility] COMP. METABOLIC PANEL 2021-11-09 20:19:00 Troy Ku [facility] ([id number]) [facility] CBC WITH DIFF 2021-11-09 20:19:00 Troy Ku Mckenzie [facility] N-TERMINAL PRO-BNP 2021-11-09 20:19:00 Troy Ku [facility] XR CHEST 1 VW 2021-11-05 06:38:35 Mihaela Martin [facility] [place] [id number] 2020-08-11 00:00:00 ALDMO [facility] [id number] 2020-08-11 00:00:00 ALDMO [facility] [id number] 2020-08-11 00:00:00 ALDMO [facility] [id number] 2020-08-11 00:00:00 ALDMO [facility] Computed tomography 2017-10-24 00:00:00 ALEXIS COX LUCY [place] Patient angiography of brain [facility] CT angiography of chest 2017-10-23 00:00:00 KHAI WAHL V C HI [facility] Patient [facility] Computed tomography of 2017-10-23 00:00:00 KHAI WAHL V CH I [facility] Patient brain without radiopaque Medical Center contrast Computed tomography of 2017-04-04 00:00:00 JACQUELYN MONTES DE [facility]CA [facility] Patient brain without radiopaque [facility] Center contrast Computed tomography of 2017-04-04 00:00:00 SWEET LAIRD A [facility] Patient cervical spine without Medical C enter contrast US abdomen complete 2017-03-08 00:00:00 SCOTT AMIN LUCY [facility] Patient Medical Center Encounters Start End Encounter Admission Attending Care Care Encounter Source Date/Time Date/Time Type Type Clinicians Facility Department ID 2021-06-17 Outpatient 3 [id number] ENCKY MALDONADO [id number] [facility] 10:24:03 [id number] 2021-06-17 Outpatient 3 [id number] ENCKY REF [id number] [facility] 10:22:04 [id number] [facility] 2020-08-23 Inpatient HCACL FERNANDO [id number] [facility] Inpatient Zhu, HCAMN HCAMN [id number] [facility] 14:40:00 Edward 33 [facility] 2019-10-15 Inpatient RADHA Shah, HCAPM ENDO [id number] [facility] 15:30:[id number] [facility] 2022-02-11 2022-02-11 Transition RIVAS Harding [id number] Univers 00:00:00 00:00:00 of Care Josselyn DUQUE [id number] it y [id number] [id number] [facility] uriel 403 Branch 2022-02-09 2022-02-10 Outpatient U JAE [facility] DARIUS [id number] Univers 19:53:00 13:45:00 MARTHA ity [facility] 2022-02-09 2022-02-10 [facility] Ana Maria Meza [facility] [id number] Univers 19:53:00 13:45:00 Encounter Martha Rowe ANA [id number] ity of [place] [id number] [facility] [id number] [place] [id number] [place] 2022-01-30 2022-01-30 Lab [facility] [id number] 00:00:00 00:00:00 [facility] 2022-01-30 2022-01-30 Lab [facility] [id number] 00:00:00 00:00:00 Requisitio [facility] 2021-11-09 2021-11-09 Emergency X Troy KU [facility] ERT [id number] Univers 15:15:00 18:32:00 ity of [facility] 2021-11-09 2021-11-09 Emergency Troy Ku [facility] [id number] Univers 15:15:00 18:32:00 Mckenzie PEREZ [id number] i ty of [place] [id number] [facility] [id number] [address] 2021-11-05 2021-11-05 Emergency X VERONICA [facility] ERT [id number] Univers 00:44:00 06:53:00 MIHAELA baugh of [facility] 2021-11-05 2021-11-05 [facility] [id number] Univers 00:44:00 06:53:00 Mihaela PEREZ [id number] ity of [place] [id number] [facility] [id number] [address] 2021-11-04 2021-11-04 Transition RIVAS Feliciano [id number] Univers 00:00:00 00:00:00 of Care Micaela DUQUE [id number] it y of [place] [id number] Noe beckett [id number] [address] 2021-11-02 2021-11-03 Outpatient X BRAYDON [facility] [id number] Univers 22:35:00 15:46:00 OC vashti [facility] 2021-10-27 2021-10-29 Outpatient X DERRICK [facility] DARIUS [id number] Univers 17:41:00 14:03:00 ANA MARIA [facility] 2021-07-21 2021-07-21 Outpatient Wong_H VFP VFP [id number] [place] 06:58:00 06:58:00 [id number] Family Practic e 2020-10-30 2020-11-05 [facility] [id number] [facility] 16:50:00 13:52:00 Fede [id number] [facility] 2020-10-31 2020-10-31 Outpatient ANNEL Carrera LABO [id number] [facility] 08:22:00 08:22:00 Fede 73 [facility] 2020-10-28 2020-10-28 Hospital Radiology [facility] [id number] 08:30:17 23:59:00 Encounter Ana [id number] [place] [id number] [place] [id number] 2020-10-12 2020-10-12 Outpatient R CHANTELLE [facility] [id number] Univers 14:00:00 14:50:48 PERLA [facility] 2020-10-06 2020-10-06 Office Ivana [facility] [id number] 10:43:51 11:59:29 Visit Gina Perez [id number] [place] [id number] Professio [id number] [facility] 205 [facility] 2020-08-19 2020-08-19 Outpatient ANNEL THORPE OPLA [id number] [facility] 07:13:00 07:13:00 DOES_NOT 89 [facility] 2020-08-10 2020-08-14 Inpatient ANNEL CareyCL INTE.02 [id number] [facility] 09:09:00 18:56:00 Johnie 31 [facility] 2017-10-23 2017-10-27 Discharged 1 [facility] [id number] 17:29:00 16:54:00 Inpatient ALEXIS 90 [facility] 2017-04-03 2017-04-04 Departed ER TAVON, [facility] [id number] 23:17:00 03:53:00 Emergency LAIRD 56 Luke s Room [facility] 2017-03-05 2017-03-09 Discharged ER PHILIP, [facility] [id number] 06:54:00 10:58:00 Inpatient NICHELLE 44 Luke s (obs) Patient [facility] 2017-01-04 2017-01-05 Discharged [facility] [id number] 10:33:00 18:56:00 Inpatient 61 Luke s (obs) Patient [facility] Results Test Description Test Time Test Comments Results Result Comments Source Transthoracic echo (TTE) 2022-02-10 17:43:07 Test Item Value Reference Range Interpretation Comme nts Height (test code = 7668007834) in Weight (test code = 6464200839) lbs Systolic BP (test code = 5742921391) mmHg Diastolic BP (test code = 5637271908) mmHg Heart Rate (test code = 1135278176) bpm BSA (test code = 7532215388) 1.86 m2 Ao root diam (test code = 9259275330) 3.10 cm Aortic root (test code = 2592835370) 3.1 cm Ao root annulus (test code = 3.1 cm 2048006926) LVOT diameter (test code = 1.83 cm 9349352591) LVOT area (test code = 2434396009) 2.60 cm2 LVIDD (test code = 7053900049) 4.80 cm Left Ventricular End Diastolic Volume 107.5 mL by Teichholz Method (test code = 9624640) IVS (test code = 2067297518) 1.35 cm Interventricular Septum Diastolic 1.35 cm Thickness by 2D (test code = 8522260) LVPWD (test code = 1601169965) 1.35 cm PW (test code = 0480099347) 1.35 cm 0.6-1.1 EF(Teich) (test code = 5964875254) 30.10 % LVIDS (test code = 3282622861) 4.10 cm Left Ventricular End Systolic Volume 75.1 mL by Teichholz Method (test code = 2551913) FS (test code = 7760855143) 14 % EF - 2D (test code = 99619874) 30.10 % LA size (test code = 6041683040) 4.1 cm TR Peak Haile (test code = 1909667380) 232.4 cm/s Triscuspid Valve Regurgitation Peak mmHg Gradient (test code = 7960498788) LAV(MOD-sp4) (test code = 8909592650) 103.10 mL E wave decelartion time (test code = 0.15 s 5882911995) MV stenosis pressure 1/2 time (test 44.6 ms code = 6720771235) MV Peak E Haile (test code = 110.2 cm/s 9483789242) MV Peak A Haile (test code = 28.7 cm/s 9163848585) E/A ratio (test code = 0972253558) ratio MR max PG (test code = 0285827172) 78.70 mm[Hg] MR max haile (test code = 6779392745) 443.40 cm/s Mr max haile (test code = 1918520889) 443.4 m/s MV Prop V (test code = 7305746447) 45.00 cm/s MV E/e' septal (test code = 9.2 cm/s 5949525367) Tapse (test code = 8700793799) 1.53 cm LVOT stroke volume (test code = 41.70 cm3 7507370886) LVOT peak haile (test code = 87.2 cm/s 3909166799) LVOT mn grad (test code = 7788987995) mmHg AV LVOT peak gradient (test code = mmHg 8995740494) LVOT peak VTI (test code = 15.8 cm 0607212679) LV V1 mean (test code = 5851985781) 51.30 cm/s Aortic valve mean velocity (test code 78.3 cm/s = 1309810945) Ao peak haile (test code = 4935995440) 111.8 cm/s Ao VTI (test code = 2960162057) 21.5 cm AV area by cont VTI (test code = 1.9 cm2 5351499111) AV area peak haile (test code = 2.1 cm2 7512093592) Ao max PG (test code = 2109496668) 5.00 mm[Hg] AV peak gradient (test code = mmHg 1444953757) AV valve area (test code = 1.94 cm2 8932524569) AV mean gradient (test code = mmHg 3942888293) Radiology Study observation (narrative) (test code = 36934-8) DIANE (test code = DIANE) Table formatting from the original result was not included. ?Left?Ventricle: Left ventricle size is normal. Normal wall thickness. See diagram for wall motion findings. Severely reduced systolic function with a visually estimated EF of 25 - 30%. There is restrictive diastolic dysfunction. Cannot exclude a small apical thrombus. ?Right?Ventricle: Right ventricle is mildly dilated. Moderately reduced systolic function. ?Left?Atrium: Left atrium is moderately dilated. ?Tricuspid?Valve: Mild transvalvular regurgitation. Right ventricular systolic pressure is 20-25 mmHg. IVC not well see n. ?Mitral?Valve: Mild transvalvular regurgitation. VitalsHeight Weight BSA (Calculated - sq m) BP Pulse 5' 6" (1.676 m) 168 lb (76.2 kg) 1.88 sq meters 117/71 71 Left VentricleLeft ventricle size is normal. Normal wall thickness. See diagram for wall motion findings. Severely reduced systolic function with a visually estimated EF of 25 - 30%. There is restrictive diastolic dysfunction. Cannot exclude a small apical thrombus.Right VentricleRight ventricle is mildly dilated. Moderately reduced systolic function.Left AtriumLeft atrium is moderately dilated.Right AtriumRight atrium size is normal.IVC/SVCIVC not well seen.Mitral ValveModerately thickened leaflets. Mild transvalvular regurgitation.Tricuspid ValveTricuspid valve structure is grossly normal. Mild transvalvular regurgitation. Right ventricular systolic pressure is 20-25 mmHg. IVC not well seen.Aortic ValveTricuspid. Mildly thickened cusps. Moderately calcified cusps. Trace transvalvular regurgitation.Pulmonic ValveNot well visualized.Ascending AortaNormal sized annulus.PericardiumNo pericardial effusion.Study DetailsStudy quality experienced technical difficulty. A complete echocardiogram was performed using 2D, color flow Doppler and spectral Doppler. 5 mL of Lumason ultrasound enhancing agent used.Wall Scoring BaselineScore Index: 1.59The following segments are hypokinetic: basal anteroseptal, basal inferoseptal, basal inferior, mid anteroseptal, mid inferoseptal, mid inferior, apical septal, apical inferior, apical lateral and apex.All other segments are normal. [id number] 12:[facility]08 Test Item Value Reference Interpretation Comments Range TROPONIN I (test 0.021 ng/mL See_Comment [Automated code = 2340670802) message] The system which generated this result [...] biotin. Lab Interpretation Normal (test code = 61382-8) [facility]20[facility] 11:50:23 Test Item Value Reference Range Interpretation Comments MAGNESIUM (test code = 2876109515) 1.7 mg/dL 1.7-2.4 Lab Interpretation (test code = Normal 25621-6) [facility]. METABOLIC PANEL (03976)2022-02-10 11:50:22 Test Item Value Reference Range Interpretation Comments NA (test code = 138 mmol/L 135-145 1486316012) K (test code = 3.9 mmol/L 3.5-5 7300311984) CL (test code = 108 mmol/L 98-108 8032278025) CO2 TOTAL (test code = 24 mmol/L 23-31 1839445820) AGAP (test code = 2-16 4972566189) BUN (test code = 19 mg/dL 7-23 3659088685) GLUCOSE (test code = 117 mg/dL 70-110 H 0625912774) CREATININE (test code = 0.91 mg/dL 0.6-1.25 3972946442) TOTAL BILI (test code = 1.0 mg/dL 0.1-1.3 5801794863) CALCIUM (test code = 8.5 mg/dL 8.6-10.6 L 8466227617) T PROTEIN (test code = 6.4 g/dL 6.3-8.2 9027712172) ALBUMIN (test code = 3.4 g/dL 3.5-5 L 4410231946) ALK PHOS (test code = 177 U/L 34-122 H 3277296245) ALTv (test code = 24 U/L 5-50 1742-6) AST(SGOT) (test code = 38 U/L 13-40 6502876892) eGFR (test code = mL/min/1.73m2 4356169134) DIANE (test code = DIANE) Association of [...] tests). Lab Interpretation Abnormal (test code = 63941-2) [facility]2022-09-22 11:50:22 Test Item Value Reference Range Interpretation Comments PHOSPHORUS (test code = 1169098230) 5.1 mg/dL 2.5-5 H Lab Interpretation (test code = Abnormal 61010-4) [facility] WITH [id number] 11:19:02 Test Item Value Reference Range Interpretation Comments [...] 38.4-49.3 L 4544-3) MCV (test code = 91.9 fL 81.7-95.6 787-2) MCH (test code = 30.8 pg 26.1-32.7 785-6) MCHC (test code = 33.6 g/dL 31.2-35 786-4) RDW-SD (test code = 48.0 fL 38.5-51.6 51943-8) RDW-CV (test code = 14.2 % 12.1-15.4 788-0) PLT (test code = See_Comment [Automated 777-3) message] The sy stem which generated this result transmitted reference range : 150 - 328 10*3/ ?L. The reference r batsheva was not used to interpret this result as normal/abnormal . MPV (test code = 10.2 fL 9.8-13 15630-8) NRBC/100 WBC (test See_Comment [Automat ed code = 8802598764) message] The system which generated this result transmitted reference range : 0.0 - 10.0 /100 WBCs. The refer ence range was not u sed to interpret th is result as normal/abnormal . NRBC x10^3 (test code See_Comment [Auto mated = 5723688455) message] The s ystem which generated this result transmitted reference range : 10*3/?L. The reference range was not used to interpret this result as normal/abnormal . GRAN MAT (NEUT) % 68.5 % (test code = 770-8) IMM GRAN % (test code 0.40 % = 8119633073) LYMPH % (test code = 19.0 % 736-9) MONO % (test code = 8.3 % 5905-5) EOS % (test code = 3.4 % 713-8) BASO % (test code = 0.4 % 706-2) GRAN MAT x10^3(ANC) 3.65 10*3/uL 1.99-6.95 (test code = 1517711127) IMM GRAN x10^3 (test 0-0.06 code = 4650151067) LYMPH x10^3 (test code 1.01 10*3/uL 1.09-3.23 L = 731-0) MONO x10^3 (test code 0.44 10*3/uL 0.36-1.02 = 742-7) EOS x10^3 (test code = 0.18 10*3/uL 0.06-0.53 711-2) BASO x10^3 (test code 0.01-0.09 = 704-7) Lab Interpretation Abnormal (test code = 27939-0) [facility] Natriuretic Factor (BNP)2022-01-30 23:33:12 Test Item Value Reference Range Interpretation Comments BNP (test code = 58112-4) 443 pg/mL 0-100 H DIANE (test code = DIANE) [employer] Operator ID - ADRY Lab Interpretation (test Abnormal code = 28895-7) [facility]22-01-30 23:33:12 Test Item Value Reference Range Interpretation Comments BNP (test code = 35426-1) 443 pg/mL 0-100 H DIANE (test code = DIANE) [employer] Machine Operator ID - ADRY Lab Interpretation (test Abnormal code = 55709-9) [facility]2022-01-30 23:33:12 Test Item Value Reference Range Interpretation Comments BNP (test code = 61962-9) 443 pg/mL 0-100 H DIANE (test code = DIANE) [employer] Machine Operator ID - ADRY Lab Interpretation (test Abnormal code = 56929-0) [facility]2022-01-30 23:33:12 Test Item Value Reference Range Interpretation Comments BNP (test code = 29156-3) 443 pg/mL 0-100 H DIANE (test code = DIANE) [employer] Machine Operator ID - ADRY Lab Interpretation (test Abnormal code = 98559-1) [facility]BNP[facility]2022-01-30 23:33:12 Test Item Value Reference Range Interpretation Comments BNP (test code = 76965-6) 443 pg/mL 0-100 H DIANE (test code = DIANE) [employer] Operator ID - ADRY Lab Interpretation (test Abnormal code = 97604-9) [facility] (BNP)2022-01-30 23:33:12 Test Item Value Reference Range Interpretation Comments B-TYPE NATRIURETIC PEPTIDE (BEAKER) 443 pg/mL 0-100 H (test code = 700) [employer] Operator ID - ADRYJORGE [id number] 20:57:59 Test Item Value Reference Interpretation Comments Range TROPONIN I (test 0.017 ng/mL See_Comment [Automated code = 2273882752) message] The system which generated this result [...] biotin. Lab Interpretation Normal (test code = 86555-3) [facility] TexasN-TERMINAL [id number] 20:54:59 Test Item Value Reference Range Interpretation Comments NT-proBNP (test code 6490 pg/mL See_Comment H [Autom ated = 2152887773) message] The system which generated this result transmitted reference range : <=125. The reference range was not used to interpret this result as normal/abnormal . DIANE (test code = DIANE) Biotin has been reported to cause a negative bias, interpret results relative to patient's use of biotin. Lab Interpretation Abnormal (test code = 17096-5) [facility]2022-06-21 20:46:35 Test Item Value Reference Range Interpretation Comments MAGNESIUM (test code = 3469089044) 1.5 mg/dL 1.7-2.4 L Lab Interpretation (test code = Abnormal 10256-4) [facility]COMP. METABOLIC PANEL (62390)2021-11-09 20:46:34 Test Item Value Reference Range Interpretation Comments NA (test code = 140 mmol/L 135-145 1662612116) K (test code = 3.9 mmol/L 3.5-5.0 4018881496) CL (test code = 111 mmol/L 98-108 H 0810525465) CO2 TOTAL (test code = 16 mmol/L 23-31 L 1088010171) AGAP (test code = 2-16 9460098622) BUN (test code = 14 mg/dL 7-23 3808179203) GLUCOSE (test code = 189 mg/dL 70-110 H 0126256205) CREATININE (test code = 0.66 mg/dL 0.60-1.25 5348513119) TOTAL BILI (test code = 0.8 mg/dL 0.1-1.1 5236515303) CALCIUM (test code = 8.3 mg/dL 8.6-10.6 L 1702191691) T PROTEIN (test code = 6.5 g/dL 6.3-8.2 3047533886) ALBUMIN (test code = 3.3 g/dL 3.5-5.0 L 0074864602) ALK PHOS (test code = 136 U/L 34-122 H 7979274899) ALTv (test code = 18 U/L 5-50 1742-6) AST(SGOT) (test code = 26 U/L 13-40 0217634861) eGFR (test code = mL/min/1.73m2 5600490939) DIANE (test code = DIANE) Association of [...] tests). Lab Interpretation Abnormal (test code = 34958-2) [facility] WITH [id number] 20:33:30 Test Item Value Reference Range Interpretation Comments WBC (test code = See_Comment [Automated 7890-2) message] The sy stem which generated this [...] RDW-SD (test code = 45.4 fL 38.5-51.6 37602-2) RDW-CV (test code = 14.2 % 12.1-15.4 788-0) PLT (test code = See_Comment [Automated 777-3) message] The sy stem which generated this result transmitted reference range : 150 - 328 10*3/ ?L. The reference r batsheva was not used to interpret this result as normal/abnormal . MPV (test code = 9.8 fL 9.8-13.0 18487-5) NRBC/100 WBC (test See_Comment [Automat ed code = 3527574998) message] The system which generated this result transmitted reference range : 0.0 - 10.0 /100 WBCs. The refer ence range was not u sed to interpret th is result as normal/abnormal . NRBC x10^3 (test code <0.01 See_Comment [Auto mated = 0111157023) message] The s ystem which generated this result transmitted reference range : 10*3/?L. The reference range was not used to interpret this result as normal/abnormal . GRAN MAT (NEUT) % 62.3 % (test code = 770-8) IMM GRAN % (test code 0.80 % = 5293133974) LYMPH % (test code = 25.1 % 736-9) MONO % (test code = 6.7 % 5905-5) EOS % (test code = 4.7 % 713-8) BASO % (test code = 0.4 % 706-2) GRAN MAT x10^3(ANC) 4.76 10*3/uL 1.99-6.95 (test code = 0691978070) IMM GRAN x10^3 (test 0.06 10*3/uL 0.00-0.06 code = 1799433850) LYMPH x10^3 (test code 1.92 10*3/uL 1.09-3.23 = 731-0) MONO x10^3 (test code 0.51 10*3/uL 0.36-1.02 = 742-7) EOS x10^3 (test code = 0.36 10*3/uL 0.06-0.53 711-2) BASO x10^3 (test code 0.03 10*3/uL 0.01-0.09 = 704-7) Lab Interpretation Abnormal (test code = 81855-5) [facility]POCT GLUCOSE (AUTOMATED)2021-11-09 20:27:39 Test Item Value Reference Range Interpretation Comments POCT GLU (test code = 2005589908) 190 mg/dL 70-110 H Lab Interpretation (test code = Abnormal 50211-0) [facility] TexasGLUCOSE BEDSIDE [id number] 11:52:00 Test Item Value Reference Range Interpretation Comments GLUCOSE BEDSIDE TESTING (test code = 92 mg/dL 70-110 N GLUBED) GLUCOSE BEDSIDE [id number] 08:05:00 Test Item Value Reference Range Interpretation Comments GLUCOSE BEDSIDE TESTING (test code = 62 mg/dL 70-110 L GLUBED) GLUCOSE BEDSIDE [id number] 20:40:00 Test Item Value Reference Range Interpretation Comments GLUCOSE BEDSIDE TESTING (test code 105 mg/dL 70-110 N = GLUBED) GLUCOSE BEDSIDE [id number] 17:02:00 Test Item Value Reference Range Interpretation Comments GLUCOSE BEDSIDE TESTING (test code 128 mg/dL 70-110 H = GLUBED) GLUCOSE BEDSIDE [id number] 16:37:00 Test Item Value Reference Range Interpretation Comments GLUCOSE BEDSIDE TESTING (test code 105 mg/dL 70-110 N = GLUBED) GLUCOSE BEDSIDE [id number] 08:17:00 Test Item Value Reference Range Interpretation Comments GLUCOSE BEDSIDE TESTING (test code = 88 mg/dL 70-110 N GLUBED) GLUCOSE BEDSIDE [id number] 19:45:00 Test Item Value Reference Range Interpretation Comments GLUCOSE BEDSIDE TESTING (test code 115 mg/dL 70-110 H = GLUBED) GLUCOSE BEDSIDE [id number] 18:13:00 Test Item Value Reference Range Interpretation Comments GLUCOSE BEDSIDE TESTING (test code = 74 mg/dL 70-110 N GLUBED) GLUCOSE BEDSIDE [id number] 17:29:00 Test Item Value Reference Range Interpretation Comments GLUCOSE BEDSIDE TESTING (test code = 44 mg/dL 70-110 LL GLUBED) GLUCOSE BEDSIDE [id number] 12:26:00 Test Item Value Reference Range Interpretation Comments GLUCOSE BEDSIDE TESTING (test code = 96 mg/dL 70-110 N GLUBED) GLUCOSE BEDSIDE [id number] 08:21:00 Test Item Value Reference Range Interpretation Comments GLUCOSE BEDSIDE TESTING (test code = 77 mg/dL 70-110 N GLUBED) GLUCOSE BEDSIDE [id number] 20:12:00 Test Item Value Reference Range Interpretation Comments GLUCOSE BEDSIDE TESTING (test code = 91 mg/dL 70-110 N GLUBED) GLUCOSE BEDSIDE [id number] 16:42:00 Test Item Value Reference Range Interpretation Comments GLUCOSE BEDSIDE TESTING (test code 106 mg/dL 70-110 N = GLUBED) GLUCOSE BEDSIDE [id number] 11:49:00 Test Item Value Reference Range Interpretation Comments GLUCOSE BEDSIDE TESTING (test code = 89 mg/dL 70-110 N GLUBED) GLUCOSE BEDSIDE [id number] 08:22:00 Test Item Value Reference Range Interpretation Comments GLUCOSE BEDSIDE TESTING (test code = 68 mg/dL 70-110 L GLUBED) GLUCOSE BEDSIDE [id number] 20:05:00 Test Item Value Reference Range Interpretation Comments GLUCOSE BEDSIDE TESTING (test code 137 mg/dL 70-110 H = GLUBED) GLUCOSE BEDSIDE [id number] 16:42:00 Test Item Value Reference Range Interpretation Comments GLUCOSE BEDSIDE TESTING (test code = 98 mg/dL 70-110 N GLUBED) GLUCOSE BEDSIDE [id number] 11:13:00 Test Item Value Reference Range Interpretation Comments GLUCOSE BEDSIDE TESTING (test code 118 mg/dL 70-110 H = GLUBED) GLUCOSE BEDSIDE [id number] 07:37:00 Test Item Value Reference Range Interpretation Comments GLUCOSE BEDSIDE TESTING (test code 140 mg/dL 70-110 H = GLUBED) COMPREHENSIVE METABOLIC [id number] 06:34:00 Test Item Value Reference Range Interpretation [...] TOTAL (test code = ALKP) CBC W/AUTO [id number] 06:25:00 Test Item Value Reference Range Interpretation [...] DIFF/SCN CRITERIA = MDIFF) - CT ABDOMEN W/[id number] 03:09:00 [facility] : 1960 Sex: M Name: FAITH VANCE [facility] : 1960 Age/S: 60 / M [address] Unit #: [id number] Loc: [place] [address] Phys: Fede Carrera Acct: [id number] Dis Date: Status: ADM IN PHONE #:[phone] Exam Date: 10/31/20201919 FAX #: Reason: NAUSEA, VOMITING, DIARRHEA EXAMS: CPT: [id number] CT ABDOMEN W/CONTRAST 68309 EXAM: - CT ABDOMEN W/CONTRAST LOCATION: H61 [...] 1 Signed Report (CONTINUED) Name: FAITH VANCE GoldsmithDOB: 1960 Age/S: 60 / M [address] Unit #: [id number] Loc: [place] [address] Phys: Fede Green DO Acct: [id number] Dis Date: Status: ADM IN PHONE #: [phone] Exam Date: 10/31/20201919 FAX #: Reason: NAUSEA, VOMITING, DIARRHEA EXAMS: CPT: [id number] CT ABDOMEN W/CONTRAST 85061 <Continued> small bowel wall thickening. The appendix [...] obstruction or colonic obstruction. 2. Moderate bilateral pleuraleffusions. at 0309 Reported and signedby: Carmen Encarnacion M.D. CC: Nika Martin MD; Fede Carrera DO Technologist:RT Rohan(R) CTDI: DLP: Trnscb Date/Time: 11/01/2020 (0309) t.SDR.TH15 Orig Print D/T: S: 11/01/2020 (311) PAGE 2 Signed ReportGLUCOSE BEDSIDE [id number] 21:34:00 Test Item Value Reference Range Interpretation Comments GLUCOSE BEDSIDE TESTING (test code 161 mg/dL 70-110 H = GLUBED) GLUCOSE BEDSIDE [id number] 17:32:00 Test Item Value Reference Range Interpretation Comments GLUCOSE BEDSIDE TESTING (test code 136 mg/dL 70-110 H = GLUBED) - XR ABDOMEN 1 [id number] 12:44:00 [facility] : 1960 Sex: M Name: FAITH VANCE [facility] : 1960 Age/S: 60 / M [address] Unit #: [id number] Loc: [place] [address] Phys: eFde Carrera DO Acct: [id number] Dis Date: Status: ADM IN PHONE #: [phone] Exam Date: 10/31/2020 1227 FAX #: Reason: Abdominal pain in the lower qudarants EXAMS: C PT: [id number] XR ABDOMEN 1 V 37670 Fluoro Time: DAP (Gy m2): Air Kerma (mGy): CLINICAL INFORMATION:Lower abdominal pain.. Dictation location: T 18 Comparison: [...] PAGE 1 Signed Report [facility] 1960 Age/S: 60 / M [address] Unit #: [id number] Loc: [place] [address] Phys: Fede Carrera DO Acct: [id number] Dis Date: Status: ADM IN PHONE #: [phone] Exam Date: 10/31/2020 1227 FAX #: Reason: Abdominal pain in the lower qudarants EXAMS: CPT: [id number] XR ABDOMEN 1 V 99849 Fluoro Time: DAP (Gy m2): Air Kerma (mGy): &lt ;Continued> Technologist: Cecelia Arias RT(R) Trnscb Date/Time: 10/31/2020 (3482) Lorena Orig Print D/T: S: 10/31/2020 (9496) PAGE 2 Signed Report GLUCOSE BEDSIDE [id number] 11:58:00 Test Item Value Reference Range Interpretation Comments GLUCOSE BEDSIDE TESTING (test code 105 mg/dL 70-110 N = GLUBED) GLUCOSE BEDSIDE [id number] 08:01:00 Test Item Value Reference Range Interpretation Comments GLUCOSE BEDSIDE TESTING (test code 106 mg/dL 70-110 N = GLUBED) [id number] 22:46:00 Test Item Value Reference Range Interpretation [...] yby method. Completed by Nursing: NOGLUCOSE BEDSIDE [id number] 21:55:00 Test Item Value Reference Range Interpretation Comments GLUCOSE BEDSIDE TESTING (test code 119 mg/dL 70-110 H = GLUBED) [id number] 19:33:00 Test Item Value Reference Range Interpretation [...] method. Completed by Nursing: NOCoronavirus 2019 nCoV [id number] 18:46:00 Test Item Value Reference Range Interpretation Comments Coronavirus 2019 nCoV Negative Negative Per ma nufacturer, Bedside (test code = negativ e results should [id number]) be treated aspresumptive a nd, if inconsistent [...] with COVID-19. Spec Comments: NNT PRO-BRAIN NATRIURETIC [id number] 15:51:00 Test Item Value Reference Range Interpretation Comments NT PRO-BRAIN NATRIURETIC PEPTI 6079 PG/ML 0-100 H (test code = PROBNP) Completed by Nursing: [id number] 15:51:00 Test Item Value Reference Range Interpretation [...] yby method. Completed by Nursing: NOBASIC METABOLIC [id number] 15:51:00 Test Item Value Reference Range Interpretation [...] Completed by Nursing: NO- XR CHEST 1 [id number] 15:42:00 [facility] : 1960 Sex: M Name: FAITH VANCE [facility] : 1960 Age/S: 60 / M [address] Unit #: [id number] Loc: [place] [address] Phys: Todd Jacobo MD Acct: [id number] Dis Date: Status: PRE ER PHONE #:[phone] Exam Date: 10/30/2020 1524 FAX #: Reason: chest pain EXAMS: CPT: [id number] XR CHEST 1 Y75898 Fluoro Time: DAP (Gy m2): Air Kerma [...] PAGE 1 Signed Report Name: FAITH VANCE Goldsmith : 1960 Age/S: 60 / M [address] Unit #: [id number] Loc: [place] [address] Phys: Todd Jacobo MD Acct: [id number] Dis Date: Status: PRE ER PHONE #: [phone] Exam Date: 10/30/2020 1524 FAX #: Reason: chest pain EXAMS: CPT: [id number] XR CHEST 1 V 83205 Fluoro Time: DAP (Gy m2): Air Kerma (mGy): <Continued> Technologist: Kim Andrews RT(R)(CT) Trnscb Date/Time: 10/30/2020 (1542) t.KATHRYNR.RB24 Orig Print D/T: S: 10/30/2020 (6501) PAGE 2 Signed ReportCBC W/O [id number] 15:31:00 Test Item Value Reference Range Interpretation [...] 9.70 fL 7.0-9.6 H MPV) BASIC METABOLIC [id number] 21:42:00 Test Item Value Reference Range Interpretation [...] 9.6 mg/dL 8.0-10.5 N CA) HEPATIC FUNCTION [id number] 21:42:00 Test Item Value Reference Range Interpretation [...] 114 IUnit/L 20-125 N code = ALKP) [id number] 21:42:00 Test Item Value Reference Range Interpretation Comments LIPASE (test code = LIP) 70 U/L 13-57 H [id number] 21:42:00 Test Item Value Reference Range Interpretation [...] by method. UA RFLX MICR CULT IF [id number] 21:37:00 Test Item Value Reference Range Interpretation [...] INDWELLING CATH (CEDENO)Cath Status: Under 72 hoursPROTHROMBIN [id number] 21:35:00 Test Item Value Reference Range Interpretation [...] (to prevent recurrent infar ct). THROMBOPLASTIN TIME [id number] 21:35:00 Test Item Value Reference Range Interpretation Comments THROMBOPLASTIN TIME 41.7 Seconds 25.0-39.5 H Therape utic Range: PARTIAL (test code = 50.4 - 88.3 Seconds PTT) Effective 09/04/2018 CBC W/AUTO [id number] 21:29:00 Test Item Value Reference Range Interpretation [...] = MDIFF) - CT ABD PELVIS W/O [id number] 20:49:00 [facility] : 1960 Sex: M Name: FAITH VANCE [facility] German Mejia : 1960 Age/S: 60 / M [address] [place] [address] Blvd Unit #: [id number] Loc: [place] [address] Phys: Gisel Eugene GAS MAKER HELPER Acct: [id number] Dis Date: Status: REG ERPHONE #: [phone] Exam Date: 08/23/20202024 FAX #: [phone] Reason: DIFFUSE ABDOMINAL PAIN EXAMS: CPT CODE: [id number] CT ABD PELVIS W/O CONT 02946 Clinical indication: Diffuse abdominal pain.Contrast - No IV contrast was given. No oral contrast was given Noncontrast phase - abdomen and pelvis including all of kidneys Reconstructions - coronal and sagittal planes Automated exposure reduction (Auto mA/Smart mA) was utilized in compliance with ACR Image Wisely with DLP of 694.8 mGy-cm. COMP ARISON: Prior CT abdomen and pelvis dated 01/03/2019. [...] 1 Signed Report (CONTINUED) Name: FAITH VANCE [facility] German Mejia : 1960 Age/S: 60 / M [address] [place] [address] Blvd Unit #: [id number] Loc: [place] [address] Phys: Gisel Eugene Acct: [id number] Dis Date: Status: REG ER PHONE #: [phone] Exam Date: 08/23/20202024 FAX #: [phone] Reason: DIFFUSE ABDOMINAL PAIN EXAMS: CPT CODE: [id number] CT ABD PELVIS W/O CONT 93137 <Continued> Peritoneum/Other: Noextraluminal air. No extraluminal fluid. IMPRESSION: 1. No [...] 08/23/2020 (2051) PAGE 2 Signed ReportBASIC METABOLIC [id number] 07:51:00 Test Item Value Reference Range Interpretation [...] >3 months. [Automated mess age] The system [employer] generated this result transmitted ref erence range: >=60. Th e reference range was not used to int erpret this result as normal/abnormal . CREATININE (test 1.20 mg/dL 0.7-1.3 N code = CREAT) BUN/CREATININE RATIO 22.1 10-20 H (test code = BUN/CREA) CALCIUM (test code = 8.6 mg/dL 8.5-10.1 N CA) [id number] 16:58:00 Test Item Value Reference Range Interpretation Comments GLUBED (test code = 159 MG/DL 70-110 H Performe d by certified GLUBED) entry operator at [facility] [id number] 11:58:00 Test Item Value Reference Range Interpretation Comments GLUBED (test code = 149 MG/DL 70-110 H Performe d by certified GLUBED) entry operator at [facility] BASIC METABOLIC [id number] 08:00:00 Test Item Value Reference Range Interpretation [...] 9.9 mg/dL 8.0-10.5 N CA) CBC W/AUTO [id number] 07:08:00 Test Item Value Reference Range Interpretation [...] DIFF REQUIRED (test code NO = MDIFF) [id number] 05:21:00 Test Item Value Reference Range Interpretation Comments GLUBED (test code = 150 MG/DL 70-110 H Performe d by certified GLUBED) entry operator at [facility] [id number] 21:13:00 Test Item Value Reference Range Interpretation Comments GLUBED (test code = 129 MG/DL 70-110 H Performe d by certified GLUBED) entry operator at [facility] [id number] 16:48:00 Test Item Value Reference Range Interpretation Comments GLUBED (test code = 116 MG/DL 70-110 H Performe d by certified GLUBED) entry operator at [facility] [id number] 12:18:00 Test Item Value Reference Range Interpretation Comments GLUBED (test code = 136 MG/DL 70-110 H Performe d by certified GLUBED) entry operator at [facility] [id number] 12:18:00 Test Item Value Reference Range Interpretation Comments GLUBED (test code = 151 MG/DL 70-110 H Performe d by certified GLUBED) entry operator at [facility] CBC W/AUTO [id number] 07:32:00 Test Item Value Reference Range Interpretation [...] (test code NO = MDIFF) BASIC METABOLIC [id number] 07:29:00 Test Item Value Reference Range Interpretation [...] code = 9.0 mg/dL 8.0-10.5 N CA) [id number] 05:19:00 Test Item Value Reference Range Interpretation Comments GLUBED (test code = 135 MG/DL 70-110 H Performe d by certified GLUBED) entry operator at [facility] [id number] 20:31:00 Test Item Value Reference Range Interpretation Comments GLUBED (test code = 189 MG/DL 70-110 H Performe d by certified GLUBED) entry operator at [facility] [id number] 17:41:00 Test Item Value Reference Range Interpretation Comments GLUBED (test code = 140 MG/DL 70-110 H Performe d by certified GLUBED) entry operator at [facility] - CTA CHEST FOR [id number] 13:48:00 [facility] : 1960 Sex: M Name: FAITH VANCE [facility] [address] : 1960 Age/S: 60 / M [address] [place] [address] Blvd Unit #: [id number] Loc: [place] [address] Phys: Gina Gonzalez FINAL ASSEMBLY INSPECTOR Acct: [id number] Dis Date: Status: ADM INPHONE #: [phone] Exam Date: 08/12/2020 09 FAX #: [phone] Reason: CP, elevated D-dimer EXAMS: CPT CODE: [id number] [place] [address] PROCEDURE: CTA CHEST INDICATION: CP, elevated D-dimer; [...] [facility] : 1960 Age/S: 60 / M [address] [place] [address] Blvd Unit #: [id number] Loc: [place] [address] Phys: Gina Gonzalez NP Acct: [id number] Dis Date: Status: ADM IN PHONE #: [phone] Exam Date: 08/12/2020911 FAX #: [phone] Reason: CP, elevated D-dimer EXAMS: CPT CODE: [id number] [place] [address] <Continued> contrastenhancement. No acute abnormality demonstrated. MUSCULOSKELETAL: Healed median sternotomy. No acute skeletal abnormality. IMPRESSION: 1. Negative for pulmonary embolic disease within limitations noted. 2. Atherosclerosis. 3. Coronary arterial calcifications with prior coronary arterial stents and CABG. 4. Interstitial edema. No consolidation. 5. Small bilateral pleural effusions. SL: [id number] at 1348 Reported and signed by: Christiano Piña M.D. CC: Johnie Montanez MD; Gina Gonzalez FINAL ASSEMBLY INSPECTOR; Nika Martin MD Technologist:Kate Camacho RT(R)(CT) CTDI: DLP: Trnscb Date/Time: 08/12/2020 (1348) tLEYDAL Orig Print D/T: S: 08/12/2020 (9383) PAGE 2 Signed [id number] 11:38:00 Test Item Value Reference Range Interpretation Comments GLUBED (test code = 146 MG/DL 70-110 H Performe d by certified GLUBED) entry operator at [facility] CBC W/AUTO [id number] 09:17:00 Test Item Value Reference Range Interpretation [...] (test code NO = MDIFF) BASIC METABOLIC [id number] 08:28:00 Test Item Value Reference Range Interpretation [...] code = 8.3 mg/dL 8.0-10.5 N CA) [id number] 08:28:00 Test Item Value Reference Range Interpretation Comments PHOSPHOROUS (test code = PHOS) 3.6 MG/DL 2.5-4.9 N [id number] 08:28:00 Test Item Value Reference Range Interpretation Comments MAGNESIUM (test code = MAG) 1.94 mg/dL 1.80-2.40 N [id number] 07:16:00 Test Item Value Reference Range Interpretation Comments GLUBED (test code = 170 MG/DL 70-110 H Performe d by certified GLUBED) entry operator at [facility] [id number] 07:16:00 Test Item Value Reference Range Interpretation Comments GLUBED (test code = 137 MG/DL 70-110 H Performe d by certified GLUBED) entry operator at [facility] [id number] 17:01:00 Test Item Value Reference Range Interpretation Comments GLUBED (test code = 88 MG/DL 70-110 N Performe d by certified GLUBED) entry operator at [facility] [id number] 16:56:00 Test Item Value Reference Range Interpretation Comments ACT-ISTAT (test code 186 SEC 74-137 H Perform ed by certified = ACTI) entry operator at [facility] [id number] 15:03:00 Test Item Value Reference Range Interpretation Comments ACT-ISTAT (test code 235 SEC 74-137 H Perform ed by certified = ACTI) entry operator at [facility] [id number] 11:33:00 Test Item Value Reference Range Interpretation Comments GLUBED (test code = 97 MG/DL 70-110 N Performe d by certified GLUBED) entry operator at [facility] [id number] 06:54:00 Test Item Value Reference Range Interpretation Comments GLUBED (test code = 136 MG/DL 70-110 H Performe d by certified GLUBED) entry operator at [facility] BASIC METABOLIC [id number] 06:00:00 Test Item Value Reference Range Interpretation [...] COMMENTS: To be done morning of Heart [id number] 06:00:00 Test Item Value Reference Range Interpretation Comments PHOSPHOROUS (test code = PHOS) 4.1 MG/DL 2.5-4.9 N COMMENTS: To be done morning of Heart [id number] 06:00:00 Test Item Value Reference Range Interpretation Comments MAGNESIUM (test code = MAG) 1.74 mg/dL 1.80-2.40 L COMMENTS: To be done morning of Heart CathTHROMBOPLASTIN TIME [id number] 05:55:00 Test Item Value Reference Range Interpretation Comments THROMBOPLASTIN TIME 37.9 Seconds 25.0-39.5 N Therape utic Range: PARTIAL (test code = 50.4 - 88.3 Seconds PTT) Effective 09/04/2018 CBC W/AUTO [id number] 05:44:00 Test Item Value Reference Range Interpretation [...] COMMENTS: To be done morning of Heart [id number] 05:44:00 Test Item Value Reference Range Interpretation Comments GLUBED (test code = 92 MG/DL 70-110 N Performe d by certified GLUBED) entry operator at [facility] [id number] 17:22:00 Test Item Value Reference Range Interpretation Comments HGBA1C% (test code = HGBA1C%) 6.6 %A1C 4.8-6.0 H [id number] 17:17:00 Test Item Value Reference Range Interpretation Comments GLUBED (test code = 118 MG/DL 70-110 H Performe d by certified GLUBED) entry operator at [facility] TSH REFLEX TO [id number] 15:37:00 Test Item Value Reference Range Interpretation Comments TSH REFLEX TO FT4 (test code = 3.19 IU/mL 0.42-5.47 N TSHREFLEX) [id number] 15:37:00 Test Item Value Reference Range Interpretation [...] y by method. COVID 19 Asymptomatic IH [id number] 11:35:00 Test Item Value Reference Range Interpretation Comments COVID 19 Asymptomatic Negative Negative A nega tive result is IH AG (test code = presumpti ve and should COVNONPUIAG) be confirmedwit h an FDA authorized mole cular assay, if chi allen forpatient jessie belen.A positive result does not rule out co-inf [...] y tests. COMMENTS: If not done this sirokykxpXEGRFNHI-[id number] 11:31:00 Test Item Value Reference Range Interpretation [...] titative results may babak y by method. [id number] 11:28:00 Test Item Value Reference Range Interpretation Comments D-DIMER (test 1089 ng/mlFEU See_Comment HH Critical resu lt called to code = Rima GERMAN G.LAB.JJ1 at 04 1808/10/20Nurse r ead back [...] to interpret this result as normal/abnormal . [id number] 10:48:00 Test Item Value Reference Range Interpretation Comments GLUBED (test code = 158 MG/DL 70-110 H Performe d by certified GLUBED) entry operator at [facility] B-TYPE NATRIURETIC [id number] 08:19:00 Test Item Value Reference Range Interpretation Comments B-TYPE NATRIURETIC PEPTIDE (test 508.0 PG/ML 0-100 H code = BNP) BASIC METABOLIC [id number] 08:11:00 Test Item Value Reference Range Interpretation [...] 9.1 mg/dL 8.0-10.5 N CA) HEPATIC FUNCTION [id number] 08:11:00 Test Item Value Reference Range Interpretation [...] 174 IUnit/L 20-125 H code = ALKP) [id number] 08:11:00 Test Item Value Reference Range Interpretation Comments MAGNESIUM (test code = MAG) 1.80 mg/dL 1.80-2.40 N [id number] 08:11:00 Test Item Value Reference Range Interpretation [...] may babak y by method. BASIC METABOLIC [id number] 08:09:00 Test Item Value Reference Range Interpretation [...] code = CA) mg/dL 8.0-10.5 HEPATIC FUNCTION [id number] 08:09:00 Test Item Value Reference Range Interpretation Comments TOTAL PROTEIN (test code = PROT) g/dL 6.4-8.2 ALBUMIN (test code = ALB) g/dL 3.4-5.0 BILIRUBIN TOTAL (test code = BILT) mg/dL 0.0-1.0 BILIRUBIN DIRECT (test code = BILD) MG/DL 0.0-0.30 SGOT/AST (test code = AST) IUnit/L 15-37 SGPT/ALT (test code = ALT) IUnit/L 30-65 ALKALINE PHOSPHATASE TOTAL (test IUnit/L 20-125 code = ALKP) [id number] 08:09:00 Test Item Value Reference Range Interpretation Comments MAGNESIUM (test code = MAG) mg/dL 1.80-2.40 [id number] 08:09:00 Test Item Value Reference Range Interpretation [...] results may babak y by method. PROTHROMBIN [id number] 08:06:00 Test Item Value Reference Range Interpretation [...] (to prevent recurrent infar ct). THROMBOPLASTIN TIME [id number] 08:06:00 Test Item Value Reference Range Interpretation Comments THROMBOPLASTIN TIME 44.5 Seconds 25.0-39.5 H Therape utic Range: PARTIAL (test code = 50.4 - 88.3 Seconds PTT) Effective 09/04/2018 CBC W/AUTO [id number] 07:58:00 Test Item Value Reference Range Interpretation [...] NO = MDIFF) - XR CHEST 1 [id number] 07:57:00 [facility] : 1960 Sex: M FAX: Todd Jacobo MD [phone] [place]: St: REG FAX: Martínez Dash NP [phone] Name: FAITH VANCE [facility] : 1960 Age/S: 60/M [address] [place] [address] Bl Unit #: [id number] Loc: [place] [address] Phys: Martínez Dash NP Acct: [id number] Dis Date: Status: REG ER PHONE #: [phone] Exam Date: 08/10/2020 [facility] FAX #: [phone] Reason: Chest Pain EXAMS: CPT CODE: [id number] XR CHEST 1 V 52093 Chest single view 08/10/2020 HISTORY: Chest pain. Comparison is made to 05/21/2018 FINDINGS: Pacemaker and midline sternotomy wires are stable. The lungs are hypoinflated. No consolidation or pleural effusion is present. No vascular congestion or interstitial edema is present. Heart size is mildlyenlarged. Aorta is unchanged. IMPRESSION: Hypoinflated lungs. No acute cardiopulmonary process. SL: [id number] at 0757 Reported and signed by: Khai Kruse M.D. CC: Todd Jacobo MD; Martínez Dash NP Technologist: RT Ann(Tim) Trnscrd Date/Time/By: 08/10/2020 (0757) : By: [email or web address] Orig Print D/T: S: 08/10/2020 (0800) PAGE 1 Signed Report COMPREHENSIVE METABOLIC [id number] 18:02:00 Test Item Value Reference Range Interpretation [...] 50-136 H TOTAL (test code = ALKP) [id number] 18:02:00 Test Item Value Reference Range Interpretation Comments AMYLASE (test code = SERGIO) 82 Unit/L 25-115 N [id number] 18:02:00 Test Item Value Reference Range Interpretation Comments LIPASE (test code = LIP) 185 Unit/L 114-286 N COMPREHENSIVE METABOLIC [id number] 17:56:00 Test Item Value Reference Range Interpretation [...] TOTAL Unit/L 50-136 (test code = ALKP) [id number] 17:56:00 Test Item Value Reference Range Interpretation Comments AMYLASE (test code = SERGIO) Unit/L 25-115 [id number] 17:56:00 Test Item Value Reference Range Interpretation Comments LIPASE (test code = LIP) 185 Unit/L 114-286 N CBC W/AUTO [id number] 17:46:00 Test Item Value Reference Range Interpretation [...] CRITERIA MDIFF) - CT ABD PELVIS W/O [id number] 17:46:00 Name: FAITH VANCE : 1960 Age/S: 58 / M [address] Unit #: [id number] Loc: [place] [address] Phys: Nila Chester MD Acct: [id number] Dis Date: Status: REG ER PHONE #: [phone] Exam Date: 01/03/2019 1730 FAX #: Reason: llq EXAMS: CPT: [id number] CT ABD PELVIS W/O CONT 71314 Location of dictation: B2 CT abdomen and [...] COMPARISON: 09/14/2017 FINDINGS: Lung bases: Minimal patchy infiltrateright lung base, stable. Hepatobiliary: Fatty liver without [...] VANCE : 1960 Age/S: 58 / M [address] Unit #: [id number] Loc: [place] [address] Phys: Nila Chester MD Acct: [id number] Dis Date: Status: REG ER PHONE #: [phone] Exam Date: 01/03/2019 1730 FAX #: Reason: llq EXAMS: CPT: [id number] CT ABD PELVIS W/O CONT 98206 <Continued> at 1746 Reported and signed by: Renuka Willett M.D. CC: Nila Bonilla MD Technologist:Tavon Jurado, RT(R)(CT)(MRI) CTDI: DLP: Trnscb Date/Time: 01/03/2019 (0916) t.SDR.PXC Orig Print D/T: S: 01/03/2019 (6087) PAGE 2 Signed ReportBedside [id number] 11:47:00 Test Item Value Reference Range Interpretation Comments Bedside Glucose (test code = 75846-7) 155 70-120 H Meter ID: [id number] [facility] BrownwoodCalcium [id number] 08:31:00 Test Item Value Reference Range Interpretation Comments Calcium Level (test code = 81286-9) 9.0 8.4-10.2 [facility] Prujo8061-58-16 08:31:00 Test Item Value Reference Range Interpretation Comments Sodium Level (test code = 2951-2) 139 136-145 [facility] BrownwoodPotassium [id number] 08:31:00 Test Item Value Reference Range Interpretation Comments Potassium Level (test code = 2823-3) 4.0 3.5-5.1 [facility] BrownwoodChloride Yjawo4912-47-50 08:31:00 Test Item Value Reference Range Interpretation Comments Chloride Level (test code = 2075-0) 106 98-107 [facility] BrownwoodCarbon Dioxide [id number] 08:31:00 Test Item Value Reference Range Interpretation Comments Carbon Dioxide Level (test code = 25 -29 8-9) [facility] BrownwoodAnion [id number] 08:31:00 Test Item Value Reference Range Interpretation Comments Anion Gap (test code = 91759-6) 12.0 8-16 [facility] BrownwoodBlood Urea Rvgegrmn2920-46-54 08:31:00 Test Item Value Reference Range Interpretation Comments Blood Urea Nitrogen (test code = 12-14 3094-0) [facility] BrownwoodCreatinine2018-06-08 08:31:00 Test Item Value Reference Range Interpretation Comments Creatinine (test code = 2160-0) 0.72 0.72-1.25 [facility] BrownwoodBUN/Creatinine [id number] 08:31:00 Test Item Value Reference Range Interpretation Comments BUN/Creatinine Ratio (test code = 10 11-13 3097-3) [facility] BrownwoodEstimat Glomerular Filtration [id number] 08:31:00 Test Item Value Reference Range Interpretation Comments Estimat Glomerular Filtration Rate 60- >60 (test code = 62647-2) Ranges were taken from the National Kidney Disease Education Program and the National Kidney Foundation literature.Reference ranges:60 or greater: Qtsunj07- 59 (for 3 consecutive months): Chronic kidneydisease 15 or less: Kidney failure [facility] BrownwoodGlucose Gblnm0423-21-06 08:31:00 Test Item Value Reference Range Interpretation Comments Glucose Level (test code = CZK4635) 195 74-118 H [facility] BrownwoodRed Blood [id number] 08:12:00 Test Item Value Reference Range Interpretation Comments Red Blood Count (test code = 789-8) 4.22 4.3-5.7 L [facility] BrownwoodHemoglobin2018-06-08 08:12:00 Test Item Value Reference Range Interpretation Comments Hemoglobin (test code = 37273-9) 12.5 14.0-18.0 L [facility] BrownwoodHematocrit2018-06-08 08:12:00 Test Item Value Reference Range Interpretation Comments Hematocrit (test code = 4544-3) 36.2 38.2-49.6 L [facility] BrownwoodMean Corpuscular Ayfoha2298-42-11 08:12:00 Test Item Value Reference Range Interpretation Comments Mean Corpuscular Volume (test code = 85.8 81-99 787-2) [facility] BrownwoodMean Corpuscular Ckaevznuea4204-65-02 08:12:00 Test Item Value Reference Range Interpretation Comments Mean Corpuscular Hemoglobin (test code 29.6 28-32 = 785-6) [facility] BrownwoodMean Corpuscular Hemoglobin Utztlcw2850-19-14 08:12:00 Test Item Value Reference Range Interpretation Comments Mean Corpuscular Hemoglobin Concent 34.5 31-35 (test code = 786-4) [facility] BrownwoodRed Cell Distribution Czxqp3238-46-37 08:12:00 Test Item Value Reference Range Interpretation Comments Red Cell Distribution Width (test code 14.2 11.7-14.4 = 81988-1) [facility] BrownwoodPlatelet Wkiyg4541-57-11 08:12:00 Test Item Value Reference Range Interpretation Comments Platelet Count (test code = 777-3) 263 140-360 [facility] BrownwoodNeutrophils (%) (Auto)2017-10-27 08:12:00 Test Item Value Reference Range Interpretation Comments Neutrophils (%) (Auto) (test code = 51.2 38.7-80.0 58039-1) [facility] BrownwoodLymphocytes (%) (Auto)2017-10-27 08:12:00 Test Item Value Reference Range Interpretation Comments Lymphocytes (%) (Auto) (test code = 33.7 18.0-39.1 736-9) [facility] BrownwoodMonocytes (%) (Auto)2017-10-27 08:12:00 Test Item Value Reference Range Interpretation Comments Monocytes (%) (Auto) (test code = 9.1 4.4-11.3 5905-5) [facility] BrownwoodEosinophils (%) (Auto)2017-10-27 08:12:00 Test Item Value Reference Range Interpretation Comments Eosinophils (%) (Auto) (test code = 4.8 0.0-6.0 713-8) [facility] BrownwoodBasophils (%) (Auto)2017-10-27 08:12:00 Test Item Value Reference Range Interpretation Comments Basophils (%) (Auto) (test code = 0.7 0.0-1.0 706-2) [facility] BrownwoodIM GRANULOCYTES %2017-10-27 08:12:00 Test Item Value Reference Range Interpretation Comments IM GRANULOCYTES % (test code = IM 0.5 0.0-1.0 GRANULOCYTES %) [facility] BrownwoodNeutrophils # (Auto)2017-10-27 08:12:00 Test Item Value Reference Range Interpretation Comments Neutrophils # (Auto) (test code = 3.1 2.1-6.9 751-8) [facility] BrownwoodLymphocytes # (Auto)2017-10-27 08:12:00 Test Item Value Reference Range Interpretation Comments Lymphocytes # (Auto) (test code = 2.0 1.0-3.2 26114-1) [facility] BrownwoodMonocytes # (Auto)2017-10-27 08:12:00 Test Item Value Reference Range Interpretation Comments Monocytes # (Auto) (test code = 742-7) 0.6 0.2-0.8 [facility] BrownwoodEosinophils # (Auto)2017-10-27 08:12:00 Test Item Value Reference Range Interpretation Comments Eosinophils # (Auto) (test code = 0.3 0.0-0.4 711-2) [facility] BrownwoodBasophils # (Auto)2017-10-27 08:12:00 Test Item Value Reference Range Interpretation Comments Basophils # (Auto) (test code = 704-7) 0.0 0.0-0.1 [facility] BrownwoodAbsolute Immature Granulocyte (sfxs3545-70-07 08:12:00 Test Item Value Reference Range Interpretation Comments Absolute Immature Granulocyte (auto 0.03 0-0.1 (test code = Absolute Immature Granulocyte (auto) [facility] BrownwoodWhite Blood Sqmfo2111-33-68 08:12:00 Test Item Value Reference Range Interpretation Comments White Blood Count (test code = 6690-2) 6.06 4.8-10.8 [facility] BrownwoodCreatine Kinase [id number] 15:14:00 Test Item Value Reference Range Interpretation Comments Creatine Kinase MB (test code = 3.90 0-5.0 48613-4) [facility] BrownwoodTroponin [id number] 15:14:00 Test Item Value Reference Range Interpretation Comments Troponin I (test code = LCY8944) 0.054 0-0.300 [facility] BrownwoodCreatine Gnwwqu5656-17-26 15:07:00 Test Item Value Reference Range Interpretation Comments Creatine Kinase (test code = 2157-6) 297 30-200 H [facility] BrownwoodHemoglobin A1c Embmxvo9375-79-70 08:04:00 Test Item Value Reference Range Interpretation Comments Hemoglobin A1c Percent (test code = 12.6 4.0-7.0 H Hemoglobin A1c Percent) [facility] BrownwoodTriglycerides Wbxwa9092-61-62 06:57:00 Test Item Value Reference Range Interpretation Comments Triglycerides Level (test code = 200 0-149 H 2571-8) [facility] BrownwoodCholesterol Mecvi1814-46-72 06:57:00 Test Item Value Reference Range Interpretation Comments Cholesterol Level (test code = 2093-3) 239 0-199 H Less than 200 mg/dL Low Iqct425 - 239 mg/dL Borderline Nnvh019 mg/dl and greater High RiskHendrick Medical Center BrownwoodLDL Ljwdzefjwzc1629-61-50 06:57:00 Test Item Value Reference Range Interpretation Comments LDL Cholesterol (test code = 2089-1) 164 60-130 H [facility] BrownwoodHDL Lijunfnrfld5215-91-84 06:57:00 Test Item Value Reference Range Interpretation Comments HDL Cholesterol (test code = 2085-9) 35 40-60 L [facility] BrownwoodCholesterol/HDL Apvlt9964-29-22 06:57:00 Test Item Value Reference Range Interpretation Comments Cholesterol/HDL Ratio (test code = 6.8 3.9-4.7 H 9830-1) [facility] BrownwoodUrine Opiates Mpdikq7991-97-51 16:18:00 Test Item Value Reference Range Interpretation Comments Urine Opiates Screen (test code = NEGATIVE NEGATIVE 84872-8) [facility]woodUrine Barbiturates Rwwqyu3552-07-64 16:18:00 Test Item Value Reference Range Interpretation Comments Urine Barbiturates Screen (test code NEGATIVE NEGATIVE = 971226623) [facility]woodU[facility] Phencyclidine Hxvczn0287-45-97 16:18:00 Test Item Value Reference Range Interpretation Comments Urine Phencyclidine Screen (test NEGATIVE NEGATIVE code = 90830-8) [facility]wood[facility] Amphetamines Rzfszh2990-58-69 16:18:00 Test Item Value Reference Range Interpretation Comments Urine Amphetamines Screen (test code NEGATIVE NEGATIVE = 10424-5) [facility]wood[facility] Methamphetamines Gpahti1656-09-65 16:18:00 Test Item Value Reference Range Interpretation Comments Urine Methamphetamines Screen (test NEGATIVE NEGATIVE code = Urine Methamphetamines Screen) [facility]woodU[facility] Benzodiazepines [id number] 16:18:00 Test Item Value Reference Range Interpretation Comments Urine Benzodiazepines Screen (test NEGATIVE NEGATIVE code = 06873-0) [facility]wood[facility] Cocaine Anmnmb0005-28-83 16:18:00 Test Item Value Reference Range Interpretation Comments Urine Cocaine Screen (test code = NEGATIVE NEGATIVE 3398-5) [facility]wood[facility] Cannabinoids Gqeolu2459-95-88 16:18:00 Test Item Value Reference Range Interpretation Comments Urine Cannabinoids Screen (test code NEGATIVE NEGATIVE = 18242-5) THESE RESULTS ARE FOR MEDICAL TREATMENT ONLYTHIS REPORT CONTAINS UNCONFIRMED SCREENING RESULTS*POSITIVE RESULTS WILL BE CONFIRMED BY REFERENCE LAB UPON REQUEST CUT-OFFDRUG CLASS CONCENTRATION ng/mLAmphetamines 1000Methamphetamines 1000Cocaine 300Opiate 300Phencyclidine 25Cannabinoid 50Barbiturates 300Benzodiazepine 300Methadone 300[facility] Ogidik8645-76-67 16:18:00 Test Item Value Reference Range Interpretation Comments Urine Methadone Screen (test code = NEGATIVE NEGATIVE 57445-3) THESE RESULTS ARE FOR MEDICAL TREATMENT ONLYTHIS REPORT CONTAINS UNCONFIRMED SCREENING RESULTS*POSITIVE RESULTS WILL BE CONFIRMED BY REFERENCE LAB UPON REQUEST CUT-OFFDRUG CLASS CONCENTRATION ng/mLAmphetamines 1000Methamphetamines 1000Cocaine Metabolite 300Opiate 300Phencyclidine 63Hupcuaifhcj60Mvbqyeovgvym 300Benzodiazepine 300Methadone 300[facility] BrownwoodProthrombin [id number] 14:13:00 Test Item Value Reference Range Interpretation Comments Prothrombin Time (test code = 5902-2) 13.6 11.9-14.5 [facility] BrownwoodProthromb Time International [id number] 14:13:00 Test Item Value Reference Range Interpretation Comments Prothromb Time International Ratio 1.13 (test code = 6301-6) Oral Anticoagulant Therapy INR Values:1. Low Intensity Therapy 1.5 - 2.02. Moderate Intensity Therapy 2.0 - 3.03. High Intensity Therapy(1) 2.5 - 3.54. High Intensity Therapy(2) 3.0 - 4.05. Panic ValueINR > 5.0[facility] BrownwoodActivated Partial Thromboplast [id number] 14:13:00 Test Item Value Reference Range Interpretation Comments Activated Partial Thromboplast Time 27.6 23.8-35.5 (test code = 29557-2) [facility]woodTotal Ndchramku7124-88-06 14:10:00 Test Item Value Reference Range Interpretation Comments Total Bilirubin (test code = 1975-2) 0.6 0.2-1.2 [facility] BrownwoodAspartate Amino Transf (AST/SGOT)2017-10-23 14:10:00 Test Item Value Reference Range Interpretation Comments Aspartate Amino Transf (AST/SGOT) (test 36 5-34 H code = Aspartate Amino Transf (AST/SGOT)) [facility]woodAlanine Aminotransferase (ALT/SGPT)2017-10-23 14:10:00 Test Item Value Reference Range Interpretation Comments Alanine Aminotransferase (ALT/SGPT) 34 0-55 (test code = 1742-6) [facility]woodTotal Dicuolc3134-52-81 14:10:00 Test Item Value Reference Range Interpretation Comments Total Protein (test code = 2885-2) 7.3 6.5-8.1 [facility] BrownwoodAlbumin2018-06-04 14:10:00 Test Item Value Reference Range Interpretation Comments Albumin (test code = 1751-7) 4.0 3.5-5.0 [facility] BrownwoodGlobulin2018-06-04 14:10:00 Test Item Value Reference Range Interpretation Comments Globulin (test code = 84500-3) 3.3 2.3-3.5 [facility] BrownwoodAlbumin/Globulin Yjyam0588-23-68 14:10:00 Test Item Value Reference Range Interpretation Comments Albumin/Globulin Ratio (test code = 1.2 0.8-2.0 1759-0) [facility] BrownwoodAlkaline Eaelegkcede1879-74-63 14:10:00 Test Item Value Reference Range Interpretation Comments Alkaline Phosphatase (test code = 109 40-150 6768-6) [facility] BrownwoodB-Type Natriuretic Lpdxrmr8210-28-31 14:10:00 Test Item Value Reference Range Interpretation Comments B-Type Natriuretic Peptide (test code = 92.8 0-100 02015-8) [facility] BrownwoodAmylase Ceavm3475-76-46 14:10:00 Test Item Value Reference Range Interpretation Comments Amylase Level (test code = 1798-8) 126 25-125 H [facility] BrownwoodLipase2018-06-04 14:10:00 Test Item Value Reference Range Interpretation Comments Lipase (test code = 3040-3) 98 8-78 H [facility] BrownwoodD-Dimer Quantitative (PE/DVT)2017-10-23 14:02:00 Test Item Value Reference Range Interpretation Comments D-Dimer Quantitative (PE/DVT) (test 0.49 0.00-0.45 H code = 87933-0) [facility] BrownwoodDirect Yapstofcs4925-24-74 13:47:00 Test Item Value Reference Range Interpretation Comments Direct Bilirubin (test code = 07657-1) 0.2 0.0-5.0 [facility] BrownwoodMagnesium Ycwsd0638-47-93 06:52:00 Test Item Value Reference Range Interpretation Comments Magnesium Level (test code = 50980-4) 1.5 1.3-2.1 [facility] BrownwoodUrine IDA3864-96-04 05:09:00 Test Item Value Reference Range Interpretation Comments Urine WBC (test code = 5821-4) NONE 0-5 [facility] BrownwoodUrine [id number] 05:09:00 Test Item Value Reference Range Interpretation Comments Urine RBC (test code = 77801-6) NONE 0-5 [facility] BrownwoodUrine Oalwlkkr0171-66-79 05:09:00 Test Item Value Reference Range Interpretation Comments Urine Bacteria (test code = 29923-0) NONE NONE [facility]woodUrine Epithelial Opmgi6271-71-78 05:09:00 Test Item Value Reference Range Interpretation Comments Urine Epithelial Cells (test code = NONE NONE 96022-0) [facility] BrownwoodUrine Pcrid5985-61-10 04:46:00 Test Item Value Reference Range Interpretation Comments Urine Color (test code = 5778-6) YELLOW YELLOW [facility]woodUrine Ztbhakl1774-74-48 04:46:00 Test Item Value Reference Range Interpretation Comments Urine Clarity (test code = 77075-4) CLEAR CLEAR [facility]woodUrine Specific Sivglud9251-05-06 04:46:00 Test Item Value Reference Range Interpretation Comments Urine Specific Weir (test code = 1.010 1.010-1.025 5811-5) [facility] BrownwoodUrine [id number] 04:46:00 Test Item Value Reference Range Interpretation Comments Urine pH (test code = 12696-8) 8 5-7 H [facility]woodUrine Leukocyte Xuigtrdu3518-43-80 04:46:00 Test Item Value Reference Range Interpretation Comments Urine Leukocyte Esterase (test code NEGATIVE NEGATIVE = 5799-2) [facility]woodUrine Bnnfmop6353-14-99 04:46:00 Test Item Value Reference Range Interpretation Comments Urine Nitrite (test code = 33507-6) NEGATIVE NEGATIVE [facility]woodUrine Owadmzp5569-69-93 04:46:00 Test Item Value Reference Range Interpretation Comments Urine Protein (test code = 5804-0) NEGATIVE NEGATIVE [facility]woodUrine Glucose (UA)2017-03-05 04:46:00 Test Item Value Reference Range Interpretation Comments Urine Glucose (UA) (test code = NEGATIVE NEGATIVE 2349-9) [facility]woodUrine Ftzmsqs8026-72-95 04:46:00 Test Item Value Reference Range Interpretation Comments Urine Ketones (test code = 87718-9) NEGATIVE NEGATIVE [facility]woodUrine Ttgphukswsix5428-21-63 04:46:00 Test Item Value Reference Range Interpretation Comments Urine Urobilinogen (test code = 0.2 0.2-1 35981-9) [facility]woodUrine Xmjtqvyxt9307-83-50 04:46:00 Test Item Value Reference Range Interpretation Comments Urine Bilirubin (test code = 1978-6) NEGATIVE NEGATIVE [facility] BrownwoodUrine Oedem7515-24-01 04:46:00 Test Item Value Reference Range Interpretation Comments Urine Blood (test code = 23636-4) 2+ NEGATIVE H [facility] BrownwoodCTA BRAIN [facility] [address] [address] PatientName: FAITH VANCE MR #: [id number] : 1960 Age/Sex: 57/M [id number] Req #: [id number] Adm Physician: ALEXIS COX MD Ordered by: ALEXIS COX MD Report #: [id number] Location: [facility] Room/Bed: [place] [address] Procedure: [id number] CT/CTA BRAIN Exam Date: 10/24/17 Exam Time: [...] COPY TO: ALEXIS COX MDCT BRAIN [place] [address] PatientName: FAITH VANCE MR #: [id number] : 1960 Age/Sex: 57/M Req #: [id number] Adm Physician: Ordered by: KHAI WAHL MD Report #: [id number] Location: ER Room/Bed: __ Procedure: [id number] CT/CT BRAIN WO Exam Date: 10/23/17 Exam [...] COPY TO: KHAI WAHL V MDCTA CHEST [place] [address] PatientName: FAITH VANCE MR #: [id number] : 1960 Age/Sex: 57/M Req #: [id number] Adm Physician: Ordered by: KHAI WAHL MD Report #: [id number] Location: ER Room/Bed: __ Procedure: [id number] CT/CTA CHEST Exam Date: 10/23/17 Exam Time: [...] reviewed and is below limits set by [facility]). FINDINGS: Lines and Tubes: Pacemaker with [...] 10/23/17 1621 COPY TO: KHAI WAHL V [facility] (PORTABLE) [place] [address] PatientName: FAITH VANCE MR #: [id number] : 1960 Age/Sex: 57/M Req #: [id number] Adm Physician: Ordered by: KHAI WAHL MD Report #: [id number] Location: ER Room/Bed: __ Procedure: [id number] DX/CHEST SINGLE (PORTABLE) Exam Date: 10/23/17 Exam [...] TO: KHAI WAHL V MDCT BRAIN [place] [address] PatientName: FAITH VANCE MR #: [id number] : 1960 Age/Sex: 56/M Req #: [id number] Adm Physician: Ordered by: JACQUELYN MONTES DE OCA MD Report #: [id number] Location: ER Room/Bed: Procedure: [id number] CT/CT BRAIN WO Exam Date: Exam Time: [...] MONTES DE OCA MDCT CERVICAL SPINE [place] [address] PatientName: FAITH VANCE MR #: [id number] : 1960 Age/Sex: 56/M Req #: [id number] Adm Physician: Ordered by: JACQUELYN MONTES DE OCA MD Report #: [id number] Location: ER Room/Bed: Procedure: [id number] CT/CT CERVICAL SPINE WO Exam Date: Exam [...] [facility] [place] [address] PatientName: FAITH VANCE MR #: [id number] : 1960 Age/Sex: 56/M Req #: [id number] Adm Physician: Ordered by: JACQUELYN MONTES DE OCA MD Report #: [id number] Location: ER Room/Bed: Procedure: [id number] DX/CHEST SINGLE (PORTABLE) Exam Date: 04/04/17 Exam Time: 122 REPORT STATUS: Signed CHEST SINGLE (PORTABLE), 04/04/2017 [...] OCA MDHIP RIGHT 2-3 VW (+/- PELVIS) [place] [address] PatientName: FAITH VANCE MR #: [id number] : 1960 Age/Sex: 56/M Req #: [id number] Adm Physician: Ordered by: JACQUELYN MONTES DE OCA MD Report #: [id number] Location: ER Room/Bed: Procedure: [id number] DX/HIP RIGHT 2-3 VW (+/- PELVIS) Exam [...] DE OCA MDSP LUMBAR, COMPLETE MIN 4VW [place] [address] Patient Name: FAITH VANCE MR #: [id number] : 1960 Age/Sex: 56/M Req #: [id number] Adm Physician: Ordered by: JACQUELYN MONTES DE OCA MD Report #: [id number] Location: ER Room/Bed: Procedure: [id number] DX/SP LUMBAR, COMPLETE MIN 4VW Exam Date: [...] JACQUELYN MONTES DE OCA MDUS ABDOMEN COMPLETE [address], [place], [place] [address] PatientName: FAITH VANCE MR #: [id number] : 1960 Age/Sex: 56/M Req #: [id number] [facility] Physician: NICHELLE PALACIOS MD Ordered by: SCOTT AMIN MD Report #: [id number] Location: [facility] Room/Bed: [place] [address] Procedure: [id number] US/US ABDOMEN COMPLETE Exam Date: 03/08/17 Exam [...] on 03/08/2017 at 10:40 Dictated By: BROOKE SMAPSON MD 39 COPY TO: SCOTT AMIN SINGLE (PORTABLE) [place] [address] PatientName: FAITH VANCE MR #: [id number] : 1960 Age/Sex: 56/M Req #: [id number] Adm Physician: Ordered by: JACQUELYN MONTES DE OCA MD Report #: [id number] Location: ER Room/Bed: Procedure: [id number] DX/CHEST SINGLE (PORTABLE) Exam Date: 03/05/17 Exam [...]
--- NOTE | 2022-02-14 11:57 | ER ---
Nurse's Notes [facility] Name: Ernie Rooney Age: 61 yrs Sex: Male : 1960 Arrival Date: 02/14/2022 Time: 10:15 Bed 7 Private MD: Diagnosis: Epistaxis;Headache;Essential (primary) hypertension Presentation: 02/14 10:06 Chief complaint: EMS states: pt c/o nose bleeding for 2 hours from LEFT nare. bleeding tw2 controlled with gauze in nose. vs stable. then pt c/o pounding headache. Coronavirus screen: At this time, the client does not indicate any symptoms associated with coronavirus-19. Ebola Screen: Patient denies travel to an Ebola-affected area in the 21 days before illness onset. Initial Sepsis Screen: Does the patient meet any 2 criteria? No. Patient's initial sepsis screen is negative. Does the patient have a suspected source of infection? No. Patient's initial sepsis screen is negative. Risk Assessment: Do you want to hurt yourself or someone else? Patient reports no desire to harm self or others. Note provider Dr. Hoff at bedside at this time. Onset of symptoms was February 14, 2022. 10:06 Acuity: TONE 3 tw2 10:06 Method Of Arrival: EMS: [facility] tw2 Triage Assessment: 10:19 General: Appears in no apparent distress. Behavior is calm, cooperative, appropriate tw2 for age. Pain: Complains of pain in headache Pain currently is 8 out of 10 on a pain scale. Quality of pain is described as "pounding". Neuro: Level of Consciousness is awake, alert, obeys commands, Oriented to person, place, time, situation. Respiratory: Airway is patent Respiratory effort is even, unlabored, Respiratory pattern is regular, symmetrical. Musculoskeletal: Amputation of Other: b/l BKA. 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 - Social history:: Smoking status: . Screenin:20 Abuse screen: Denies threats or abuse. Nutritional screening: No deficits noted. tw2 Tuberculosis screening: No symptoms or risk factors identified. Fall Risk Secondary diagnosis (15 points) impaired mobility, BKA. Assessment: 12:10 Reassessment: Patient appears in no apparent distress at this time. No changes from tw2 previously documented assessment. Patient and/or family updated on plan of care and expected duration. Pain level reassessed. Patient is alert, oriented x 3, equal unlabored respirations, skin warm/dry/pink. no nose bleeding noted at this time. 13:20 Reassessment: Patient appears in no apparent distress at this time. No changes from tw2 previously documented assessment. Patient and/or family updated on plan of care and expected duration. Pain level reassessed. Patient is alert, oriented x 3, equal unlabored respirations, skin warm/dry/pink. 13:51 Reassessment: assisted staff at bedside w/ wheelchair, pt d/c back to nursing [facility]. Vital Signs: 10:06 BP 149 / 93; Pulse 83; Resp 17; Temp 97.2(TE); Pulse Ox 99% on R/A; Weight 75.75 kg (R);tw2 12:09 BP 140 / 78; Pulse 82; Resp 17; Pulse Ox 100% on R/A; tw2 13:20 BP 138 / 80; Pulse 79; Resp 17; Pulse Ox 99% on R/A; tw2 ED Course: 10:15 Patient arrived in ED. tw2 10:18 Triage completed. tw2 10:18 Gina Williamson FNP is [facility] 7 10:18 Regan Hoff DO is Attending Physician. jh7 10:19 Arm band placed on. tw2 11:56 Mei Calabrese MD is Referral Physician. ms3 12:03 Lary Cannon, SHEBA is Primary Nurse. tw2 12:09 Awaiting transportation, Awaiting: pt is bedbound, b/l BKA. tw2 13:50 No provider procedures requiring assistance completed. Patient did not have IV access tw2 during this emergency room visit. 13:51 Patient has correct armband on for positive identification. Bed in low position. Call tw2 light in reach. Side rails up X2. Pulse ox on. NIBP on. Administered Medications: 12:08 Drug: Tylenol 1000 mg Route: PO; tw2 13:52 Follow up: Response: No adverse reaction tw2 Medication: 13:51 VIS not applicable for this client. tw2 Outcome: 11:57 Discharge ordered by . ms3 13:50 Discharged to alf. tw2 13:50 Condition: good 13:50 Discharge instructions given to patient, Instructed on discharge instructions, follow up and referral plans. Demonstrated understanding of instructions, follow-up care. 13:53 Patient left the ED. tw2 Signatures: Lary Cannon, RN RN tw2 Regan Hoff DO DO ms3 Gina Williamson, BACK PADDER BACK PADDER jh7
--- NOTE | 2022-02-14 11:57 | EDPHYS ---
Physician Documentation [facility] Name: Ernie Rooney Age: 61 yrs Sex: Male : 1960 Arrival Date: 02/14/2022 Time: 10:15 Bed 7 Private MD: ED Physician Regan Hoff HPI: 02/14 11:58 This 61 yrs old Male presents to ER via EMS with complaints of Nose Bleed. ms3 11:58 61-year-old male with past medical history of GERD, fibromyalgia, hyperlipidemia, ms3 hypertension, hypothyroidism via [facility] for epistaxis that began 1 hour prior to their arrival. patient states he has 8/10 head pain. Patient denies alleviating or inciting factors.. 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 - Social history:: Smoking status: . ROS: 11:58 Constitutional: Negative for fever, and chills. Neck: Negative for injury, pain, and ms3 swelling, Cardiovascular: Negative for chest pain, and palpitations. Respiratory: Negative for shortness of breath, cough, wheezing, and pleuritic chest pain, Abdomen/GI: Negative for abdominal pain, nausea, vomiting, diarrhea, and constipation. 11:58 Skin: Negative for injury, rash, and discoloration. 11:58 ENT: Positive for nose bleed. 11:58 All other systems are negative. Exam: 11:58 Constitutional: This is a well developed, well nourished patient who is awake, alert, ms3 and in no acute distress. Head/Face: Normocephalic, atraumatic. Neck: Trachea midline, no cervical lymphadenopathy. Supple, full range of motion without nuchal rigidity, or vertebral point tenderness. No Meningismus. Cardiovascular: Regular rate and rhythm with a normal S1 and S2. No gallops, murmurs, or rubs. Normal PMI, no JVD. No pulse deficits. Respiratory: Lungs have equal breath sounds bilaterally, clear to auscultation and percussion. No rales, rhonchi or wheezes noted. No increased work of breathing, no retractions or nasal flaring. Abdomen/GI: Soft, non-tender, with normal bowel sounds. No distension or tympany. No guarding or rebound. No evidence of tenderness throughout. Skin: Warm, dry with normal turgor. Normal color with no rashes, no lesions, and no evidence of cellulitis. MS/ Extremity: Pulses equal, no cyanosis. Neurovascular intact. Full, normal range of motion. Neuro: Awake and alert, GCS 15, oriented to person, place, time, and situation. Cranial nerves II-XII grossly intact. Motor strength 5/5 in all extremities. Sensory grossly intact. Cerebellar exam normal. Normal gait. Psych: Awake, alert, with orientation to person, place and time. Behavior, mood, and affect are within normal limits. 11:58 ENT: Nose: bleeding, is seen from the left nare, and is minimal, no septal hematoma is appreciated. Vital Signs: 10:06 BP 149 / 93; Pulse 83; Resp 17; Temp 97.2(TE); Pulse Ox 99% on R/A; Weight 75.75 kg (R);tw2 12:09 BP 140 / 78; Pulse 82; Resp 17; Pulse Ox 100% on R/A; tw2 13:20 BP 138 / 80; Pulse 79; Resp 17; Pulse Ox 99% on R/A; tw2 Procedures: 11:57 Epistaxis treatment: A small amount of bleeding noted from Treated using direct ms3 pressure, Bleeding stopped. MDM: 10:19 Patient medically screened. [email or web address] 11:58 Data reviewed: vital signs, nurses notes, and as a result, I will discharge patient. ms3 Counseling: I had a detailed discussion with the patient and/or guardian regarding: the historical points, exam findings, and any diagnostic results supporting the discharge/admit diagnosis, the need for outpatient follow up, to return to the emergency department if symptoms worsen or persist or if there are any questions or concerns that arise at home. Special discussion: I discussed with the patient/guardian in detail that at this point there is no indication for admission to the hospital. It is understood, however, that if the symptoms persist or worsen the patient needs to return immediately for re-evaluation. ED course: Patient's nose hemostatic at this time. Patient symptoms have improved. Patient to follow-up with primary care physician and Dr. Calabrese in 2 to 3 days. All questions were answered. Return precautions discussed include worsening symptoms, or any other concerns.. Administered Medications: 12:08 Drug: Tylenol 1000 mg Route: PO; tw2 13:52 Follow up: Response: No adverse reaction tw2 Disposition Summary: 02/14/22 11:57 Discharge Ordered Location: Home ms3 Condition: Stable ms3 Diagnosis - Epistaxis ms3 - Headache ms3 - Essential (primary) hypertension ms3 Followup: ms3 - With: Private Physician - When: 2 - 3 days - Reason: Recheck today's complaints Followup: ms3 - With: Mei Calabrese MD - When: 2 - 3 days - Reason: Recheck today's complaints Discharge Instructions: - Discharge Summary Sheet ms3 - Nosebleed, Adult ms3 - General Headache Without Cause ms3 - Nosebleed, Adult, Jlac-dc-Jujk ms3 Forms: - Medication Reconciliation Form ms3 - Thank You Letter ms3 - Antibiotic Education ms3 - Prescription Opioid Use ms3 Signatures: Lary Cannon RN RN tw2 Regan Hoff DO DO ms3 Gina Williamson FNP EDITORIAL WRITER jh7
[2022-02-14] MEDS ORDERED: ACETAMINOPHEN 500 MG TAB ONE (12:03)
[2022-02-16 20:14] VITALS: BP 138/80; O2SAT 99
== END 2022-02-14 13:53 | disposition home or self-care (01) ==
LOC: ER 10:10
DX: R04.0 Epistaxis (principal); R51.9 Headache, unspecified; I10 Essential (primary) hypertension; Z95.0 Presence of cardiac pacemaker; Z95.1 Presence of aortocoronary bypass graft; Z89.512 Acquired absence of left leg below knee; Z89.511 Acquired absence of right leg below knee
CPT/HCPCS: 30901; 99283

== ENCOUNTER 2022-06-03 18:19 | Inpatient (IN) | payer OTHER ==
--- OUTSIDE RECORDS SUMMARY | 2022-06-03 18:30 | XMS REPORT | Continuity of Care Document ---
:1960 Author Organization [facility] t Address [address] [place] [address] Care Team Providers Name Role Phone MONIKA HALL MD Primary Care Physician [id number] Attending Clinician Unavailable Harshal Zhu Attending Clinician Unavailable Finn Shah Attending Clinician Unavailable Doctor Unassigned, Christmas Attending Clinician Unavailable Josselyn Harding RN Attending Clinician Unavailable MARTHA ROWE Attending Clinician Unavailable Ana Maria Meza DO Attending Clinician Martha Rowe MD Attending Clinician Troy KU Attending Clinician Unavailable Troy Wahl Attending Clinician MIHAELA MARTIN Attending Clinician Unavailable Mihaela Martin NP Attending Clinician Micaela Feliciano RN Attending Clinician Unavailable OC BRYSON Attending Clinician Unavailable Curtis Xavier MD Attending Clinician Braydon HALL, Oc Attending Clinician ANA MARIA MEZA Attending Clinician Unavailable Jameson Mejia DO Attending Clinician Lizett Gerardo MD Attending Clinician JYOTI CEDENO S Attending Clinician Unavailable Jyoti Mujica S Attending Clinician Love SCRUGGS, Rico Morales Attending Clinician Unavailable Capri SCRUGGS, Marcella Wynn Attending Clinician Unavailable GEOFFREY HILL Attending Clinician Unavailable Brandyn Dumont ENP Attending Clinician Geoffrey Hill MD Attending Clinician Portillo Attending Clinician Unavailable AMBIKA FERNANDEZ Attending Clinician Unavailable Ambika Fernandez MD Attending Clinician ALECIA FULTON Attending Clinician Unavailable GINA HEATH Attending Clinician Unavailable Wayne Can MD Attending Clinician Fede Carrera Attending Clinician Unavailable Radiology Attending Clinician Unavailable RADIOLOGY Attending Clinician Unavailable Bryan Lockhart MD Attending Clinician BRYAN LOCKHART Attending Clinician Unavailable Gina Heath MD Attending Clinician Bay PALOMO, Óscar F Attending Clinician Gilda French RN Attending Clinician Jose Guy DO Attending Clinician Alis Garcia MD Attending Clinician [phone] Kaylyn Calvin MD Attending Clinician Tha Gunter MD Attending Clinician THA GUNTER Attending Clinician Unavailable DEIDRE JAIME Attending Clinician Unavailable Johnie Montanez Attending Clinician Unavailable Minnie Cardona MD Attending Clinician Tejas HALL, Drew Mckenzie Attending Clinician Susanne HALL, Johnie Novak Attending Clinician JOHNIE SKINNER Attending Clinician Unavailable Janeth Leal DO Attending Clinician Cara HALL, Lisa Attending Clinician JOSE SHEARER Attending Clinician Unavailable Janki HALL, Jose Cherry Attending Clinician Gianluca HALL, Kandis Attending Clinician Caio Najera DO Attending Clinician Golden HALL, Stephanie Attending Clinician NINFA CASTILLO K.H. Attending Clinician Unavailable Marcus HALL, Lopez Cardona Attending Clinician Jaimee HALL, Heather Attending Clinician Valery Carrillo MD Attending Clinician VALERY CARRILLO Attending Clinician Unavailable Anna HALL, Sendneda K.H. Attending Clinician Nika Martin Attending Clinician Lola Lee MD Attending Clinician Demarcus Schulz Attending Clinician DEMARCUS REEVES Attending Clinician Unavailable Joan Ramirez Attending Clinician LIZETT GERARDO Attending Clinician Unavailable RICHMOND ROBLES Attending Clinician Unavailable Kendra Vaca MD Attending Clinician KENDRA VACA Attending Clinician Unavailable KENDRA VACA Attending Clinician Unavailable MICHAEL SHIRLEY Attending Clinician Unavailable Casper RAE, Michael Gaxiola Attending Clinician [phone] Nova RAE, Cortney Law Attending Clinician [phone] Emy SCRUGGS, Rhonda Attending Clinician Dennis Finley MD Attending Clinician Carlos Allen MD Attending Clinician ALEXIS COX Attending Clinician Unavailable JACQUELYN MONTES DE OCA Attending Clinician Unavailable NICHELLE PALACIOS Attending Clinician Unavailable [id number] Admitting Clinician Unavailable Nika Martin Admitting Clinician Unavailable KNOW, DOES_NOT Admitting Clinician Unavailable Physician, No Primary or Family Admitting Clinician UnavailMARTHA Balbuena Admitting Clinician Unavailable Martha Rowe MD Admitting Clinician Troy KU Admitting Clinician Unavailable MIHAELA MARTIN Admitting Clinician Unavailable OC BRYSON Admitting Clinician Unavailable Oc Bryson MD Admitting Clinician LIZETT GERARDO Admitting Clinician Unavailable Lizett Gerardo MD Admitting Clinician JYOTI CEDENO Admitting Clinician Unavailable ANA MARIA MEZA Admitting Clinician Unavailable Ana Maria Meza DO Admitting Clinician GEOFFREY HILL Admitting Clinician Unavailable Geoffrey Hill MD Admitting Clinician Wong_H Admitting Clinician Unavailable AMBIKA FERNANDEZ Admitting Clinician Unavailable Ambika Fernandez MD Admitting Clinician Fede Carrera Admitting Clinician Unavailable Johnie Montanez Admitting Clinician Unavailable Drew Noriega MD Admitting Clinician DREW NORIEGA Admitting Clinician Unavailable Lisa Marroquin MD Admitting Clinician Jose Shearer MD Admitting Clinician Heather Hermosillo MD Admitting Clinician VALERY CARRILLO Admitting Clinician Unavailable DEMARCUS REEVES Admitting Clinician Unavailable Kendra Vaca MD Admitting Clinician KENDRA VACA Admitting Clinician Unavailable MICHAEL SHIRLEY Admitting Clinician Unavailable Michael Hernandez Admitting Clinician [phone] Malia HALL Dennis Arreola Admitting Clinician ALEXIS COX Admitting Clinician Unavailable NICHELLE PALACIOS Admitting Clinician Unavailable Payers Payer Name Policy Type Policy Number Effective Date Expiration Date Sujit daugherty [facility] [id number] [employer] [id number] 2018spring 00:00:00 [employer] [id number] 2004 [facility] Problems Condition Condition [...] combined combined Hypotensio Hypotensio Disease Active U destinee n n 4-15 ity of 00:00: [place] [...] Branch Osteomyeli Osteomyeli Disease Active 2019-05 U destinee tis tis 0-26 ity of 00:00: Medical Branch Preop Preop Disease Active 2019-05 Univers cardiovasc cardiovasc 0-26 it y of ular exam ular exam [place] KALYN (acute KALYN (acute Disease Active 2019-05 U destinee kidney kidney 0-26 ity of injury) injury) 00:00: [place] 00 Medical Branch Left foot Left foot Disease Active 2019-05 Overview: Univers pain pain 0-25 Formattin ity of 00:00: g of this [place] 00 note Medical might be Branch different from the original. Added automatic ally from request for surgery [id number] Troponin I Troponin I Disease Active 2020-0 [...] Uni vers 3-18 ity of 00:00: [place] [facility] PAF PAF Disease Active 2019- Univers (paroxysma (paroxysma 3-18 it y of l atrial l atrial 00:00: [place] fibrillati fibrillati 00 Me dical on) on) Branch Abdominal Abdominal Disease Active 2019- Uni vers pain pain 2-27 ity of 00:00: [place] [facility] Pacemaker Pacemaker Disease Active 2019- [...] 00:00: [place] involving involving 00 Medi uriel [place] Branch coronary coronary artery of artery of [place] heart with heart with angina angina pectoris pectoris Type 2 Type 2 Disease Active 2019 Univers diabetes diabetes 8-29 ity of mellitus mellitus 00:00: [place] without without 00 Medical complicati complicati Br anch on, on, without without long-term long-term current current use of use of insulin insulin Essential Essential Disease Active Uni vers hypertensi hypertensi 01-17 it y of on on 00:00: [place] [address] Medical Branch Other Other Disease Active Univers hyperlipid hyperlipid 01-17 it y of emia emia 00:00: [place] [address] Medical Branch Stroke Stroke Disease Active Univers 5-12 ity of 00:00: [place] [facility] Left-sided Left-sided Disease Active U nivers weakness weakness - ity of 00:00: [place] [facility] Left sided Left sided Disease Active U nivers numbness numbness 5- ity of 00:00: [place] 00 Medical Branch S/P admn S/P admn Disease Active Unive rs tPA in tPA in -11 ity of diff fac diff fac 00:00: [place] w/n last w/n last 00 Medica l 24 hr bef 24 hr bef Bran ch adm to adm to crnt fac crnt fac S/P admn S/P admn Disease Active Unive rs tPA in tPA in 4-11 ity of diff fac diff fac 00:00: [place] w/n last w/n last 00 Medica l 24 hr bef 24 hr bef Bran ch adm to adm to crnt fac crnt fac Unstable Unstable Disease Active Unive rs angina angina 4-10 ity of 00:00: [place] [facility] Atypical Atypical Disease Active Unive rs chest pain chest pain 2-22 it y of 00:00: [place] [address] Medical Branch Chest pain Chest pain Problem [facility] Coronary CAD Problem Active [facility] (coronary [facility] disease artery Patient disease) [facility] Diabetic DKA Problem Active [facility] ketoacidos (diabetic Esme es is ketoacidos Patien t es[facility] Hyperglyce Hyperglyce Problem Active [facility] bambi bambi [facility] Hypertensi Hypertensi Problem Active [facility] on on [facility] Pancreatit Pancreatit Problem Active [facility] is is [facility] Uncontroll Uncontroll Problem Active [facility] diabetes diabetes Patien t mellitus mellitus [facility] Allergies, Adverse Reactions, Alerts Allergy Allergy Status Severity Reaction(s) Onset Inactive Treating Comm ents Source Name Type Date Date Clinician No Known DA Active U [facility] [place] 00:[facility]: d 00 [facility] No Known DA Active U [facility] Allergie 3- [place] 00:[facility]: d 00 [facility] No Known DA Active U 2017-05 [facility]ie 2-[facility] s 00:00: Mej[place] 00 [facility] No Known DA Active U 2017-05 [facility] Allergie 2-31 Clear s 00:00: [place] 00 [facility] No Known DA Active U [facility]ie 3- [place] 00:[facility]: e 00 [facility] NO KNOWN Drug Active Univers ALLERGIE Class ity of S [place] [facility] Social History Social Habit Start Date Stop Date Quantity Comments Source History of Passive smoker University of tobacco use [place] [facility] History SDOH University o f Alcohol Frequency [place] M edical Branch History SDOH University o f Alcohol Std [place] Medical Drinks Branch History SDOH University o f Alcohol Binge [place] Medic al Branch History SDOH Food 2022-02-11 2022-02-11 1 Univers ity of Worry 00:00:00 00:00:00 [place] [facility] History SDOH Food 2022-02-11 2022-02-11 1 Univers ity of Scarcity 00:00:00 00:00:00 [place] [facility] History SDOH 2022-02-11 2022-02-11 2 University o f Transport Med 00:00:00 00:00:00 [place] [facility] History SDOH 2022-02-11 2022-02-11 2 University o f Transport Non-Med 00:00:00 00:00:00 [place] M edical Branch Exposure to 2022-01-30 2022-02-09 Not sure University of SARS-CoV-2 00:00:00 20:09:00 [place] Medical (event) Branch Tobacco use and 2022-02-09 2022-02-09 Smokeless tobacco Un iversity of exposure 00:00:00 00:00:00 non-user [place] [facility] Alcohol intake 2022-02-09 2022-02-09 1.71 /d University of 00:00:00 00:00:00 [facility] [place] [facility] Tobacco Comment 2022-02-09 2022-02-09 quit 15 years ago Un iversity of 00:00:00 00:00:00 [facility] [place] [facility] Education 2021-10-27 2021-10-27 9 University of 00:00:00 00:00:00 [facility] [place] [facility] History SDOH 2020-03-16 2020-03-16 3 University o f Financial 00:00:00 00:00:00 [facility] [place] [facility] Alcohol Comment 2019-07-18 2019-07-18 quit drinking Univvish sitvashti of 00:00:00 00:00:00 2013 but drank [facility] heavily before Branch this Sex Ass[birth year] At [birth year] LUCY Sanders 00:00:00 00:00:00 [facility] Smoking Status Start Date Stop Date Source Ex-smoker 2022-02-09 00:00:00 2022-02-09 00:00:00 Universi ty of [facility] [place] [facility] Medications Ordered Filled Start Stop Current Ordering Indication Dosage Frequency Signature Comments Components Source Medication Medication Date Date Medication? Clinician (SIG) Name Name aspirin 81 2021- No [id number] 81mg Take 1 Univers mg chewable 9-23 10-24 tablet by it y of tablet 00:00: 04:59 mouth [place] 00 :00 daily with Medical breakfast Branch for 30 days. glipiZIDE 5 2021- No [id number] 5mg Take 1 Univers mg tablet 9-23 10-24 tablet by ity of 00:00: 04:59 mouth in [place] 00 :00 the Medical morning Branch for 30 days. levothyroxi 2021- No [id number] 50ug Take 1 Univers ne 50 mcg 9-23 10-24 tablet by ity of tablet 00:00: 04:59 mouth [place] 00 :00 every Medical morning Branch for 30 days. lisinopriL 2021- No [id number] 2.5mg Take 1 Univers 2.5 mg 9-23 10-24 tablet by ity of tablet 00:00: 04:59 mouth in [place] 00 :00 the Medical morning Branch for 30 days. spironolact 2021- No [id number] 25mg Take 1 Univers one 25 mg 9-23 10-24 tablet by ity of tablet 00:00: 04:59 mouth in [place] 00 :00 the Medical morning [place] for 30 days. tamsulosin 2021- No [id number] .4mg Take 1 Univers 0.4 mg 24 9-23 10-24 capsule by ity of hr capsule 00:00: 04:59 mouth in [facility] 00 :00 the Medical morning Branch for 30 days. aspirin 81 2021-2021- No [id number] 81mg Take 1 Univers mg chewable 9-23 10-24 tablet by it y of tablet 00:00: 04:59 mouth [place] 00 :00 daily with [facility] breakfast Branch for 30 days. glipiZIDE 5 2021- No [id number] 5mg Take 1 Univers mg tablet 9- 10-24 tablet by ity of 00:00: 04:59 mouth in [place] 00 :00 the [facility] morning [place] for 30 days. levothyroxi 2021- No [id number] 50ug Take 1 Univers ne 50 mcg 9-23 10-24 tablet by ity of tablet 00:00: 04:59 mouth [place] 00 :00 every [facility] morning [place] for 30 days. lisinopriL 2021- No [id number] 2.5mg Take 1 Univers 2.5 mg 9-23 10-24 tablet by ity of tablet 00:00: 04:59 mouth in [place] 00 :00 the [facility] for 30 days. spironolact 2021- No [id number] 25mg Take 1 Univers one 25 mg 9-23 10-24 tablet by ity of tablet 00:00: 04:59 mouth in [place] 00 :00 the [facility] for 30 days. tamsulosin 2021- No [id number] .4mg Take 1 Univers 0.4 mg 24 9-23 10-24 capsule by ity of hr capsule 00:00: 04:59 mouth in [facility] 00 :00 the [facility] morning [place] for 30 days. sulfur 2021- No [id number] 5mL 5 mL, Unive rs hexafluorid 02-10 Intravenou i ty of e microsphr 16:30: 16:30 s, ONCE, 1 [place] (LUMASON) 00 :00 dose, On Medica l injection 5 Annie Branch mL 02/10/22 at 1130, Routine
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 traMADoL 2021-0 Yes 50mg 50 mg, Univers (ULTRAM) 02-10 Oral, ity of tablet 50 15:10: Q6HPRN, [place] mg 57 Starting Medical on [facility] Branch 02/10/22 at 1010, Until Discontinu ed, Routine, Pain (scale 7-10) lisinopriL 0 Yes 2.5mg 2.5 mg, Uni vers (PRINIVIL,Z 02-10 Oral, ity of ESTRIL) 14:00: DAILY, [place] tablet 2.5 00 First dose Med ical mg on [facility] Branch 02/10/22 at 0900, Until Discontinu ed, Routine glipiZIDE 0 Yes 5mg 5 mg, Univers (GLUCOTROL) 02-10 Oral, ity of tablet 5 mg 14:00: DAILY, [place] 00 First dose Medical on [facility] Branch 02/10/22 at 0900, Until Discontinu ed, Routine enoxaparin 0 Yes 30mg 30 mg, Unive rs (LOVENOX) 02-10 Subcutaneo ity of injection 14:00: [place], DAILY, [place] 30 mg 00 First dose Medical on [facility] Branch 02/10/22 at 0900, Until Discontinu ed, Routine levothyroxi Yes 50ug 50 mcg, Uni vers ne 02-10 Oral, ity of (SYNTHROID) 11:00: QAM-0600, [place] tablet 50 00 First dose Medi uriel mcg on [facility] Branch 02/10/22 at 0600, Until Discontinu ed, Routine morpHINE (2 2021- No 2mg 2 mg, Slow Univers mg/mL) 02-10 IV Push, ity of injection 2 08:45: 08:01 ONCE, 1 [place] mg 00 :00 dose, On [facility] 02/10/22 at 0345, Routine furosemide 0 Yes 20mg 20 mg, IV Un charley (LASIX) 02-10 Push, Q8H, ity of injection 04:15: First dose [place] 20 mg 00 on Mon Medical 02/09/22 at Branch 2315, Until Discontinu ed, Routine spironolact 2021-0 Yes 25mg 25 mg, Univ ers one 02-10 Oral, ity of (ALDACTONE) 04:15: DAILY, [place] tablet 25 00 First dose Medi uriel mg on Mon Branch 02/09/22 at 2315, Until Discontinu ed, Routine atorvastati 2021-0 Yes 40mg 40 mg, Univ ers n (LIPITOR) 02-10 Oral, QHS, it y of tablet 40 04:15: First dose [place] mg 00 on Mon [facility] 02/09/22 at Branch 2315, Until Discontinu ed, Routine aspirin 2021-0 Yes 81mg 81 mg, Univers chewable 02-10 Oral, QAM ity of tablet 81 04:15: WITH [place] mg 00 BREAKFAST, Medical First dose Branch on Mon02/09/22 at 2315, Until Discontinu ed, Routine metoprolol 2021-0 Yes 12.5mg 12.5 mg, U nivers succinate 02-10 Oral, ity of XL (TOPROL 04:15: DAILY, [place] XL) tablet 00 First dose Med ical 12.5 mg on [facility] 02/09/22 at 2315, Until Discontinu ed, Routine tamsulosin 2021-0 Yes .4mg 0.4 mg, Univ ers (FLOMAX) 02-10 Oral, ity of capsule 0.4 04:15: DAILY, [place] mg 00 First dose Medical on [facility] Branch 02/09/22 at 2315, Until Discontinu ed, Routine gabapentin 2021-0 Yes 300mg 300 mg, Uni vers (NEURONTIN) 02-10 Oral, BID, it y of capsule 300 04:15: First dose [place] mg 00 on Mon [facility] 02/09/22 at Branch 2315, Until Discontinu ed, Routine sennosides 2021-0 Yes 8.6mg 8.6 mg, Uni vers (SENOKOT) 02-10 Oral, BID, ity of tablet 8.6 04:15: First dose [place] mg 00 on Mon [facility] 02/09/22 at Branch 2315, Until Discontinu ed, Routine docusate 2021-0 Yes 100mg 100 mg, Unive rs (COLACE) 02-10 Oral, BID, ity o f capsule 100 04:15: First dose [place] mg 00 on Mon [facility] 02/09/22 at Branch 2315, Until Discontinu ed, Routine Sliding 2021-0 Yes Subcutaneo Univ ers Scale 02-10 us, TID ity of Insulin - 04:15: MEALS+HS, Juan J as Lispro 00 First dose Medical (HumaLOG) + on Mon Branch [facility] 02/09/22 at Testing 2315, Until Discontinu ed, Routine ondansetron 2021-0 Yes 4mg 4 mg, Slow Univers (ZOFRAN 02-10 IV Push, ity of (PF)) 04:04: Q6HPRN, [place] injection 4 01 Starting Medi uriel mg on Mon Branch 02/09/22 at 2304, Until Discontinu ed, Routine, Nausea and Vomiting (N/V) glucagon 2021-0 Yes 1mg 1 mg, Univers (GLUCAGEN 02-10 Intramuscu ity of DIAGNOSTIC 04:01: lar, PRN, [place] KIT) 56 Starting Medical injection 1 on Wed Branch mg 02/09/22 at 2301, Until Discontinu ed, PIERRE, Blood Glucose < or = 70 mg/dL and patient is unable to swallow or has mental changes. dextrose 50 0 Yes 25mL 25 mL, Univ ers % in water 02-10 Slow IV ity of (D50W) 04:01: Push, PRN, [place] injection 56 Starting Medica l 25 mL on Wed Branch 02/09/22 at 2301, Until Discontinu ed, PIERRE, Blood Glucose < or = 70 mg/dL and patient is unable to swallow or has mental status changes. atorvastati 2021- No [id number] 40mg Take 1 Univers n 40 mg - 10-23 tablet by ity of tablet 00:00: 04:59 mouth at [place] 00 :00 bedtime Medical for 30 Branch days. metoprolol 2021- No [id number] 12.5mg Take 0.5 Univers succinate 9- 10-23 tablets by ity of XL 25 mg 24 00:00: 04:59 mouth in [place] hr tablet 00 :00 the Medical morning Branch for 30 days. atorvastati 2021- No [id number] 40mg Take 1 Univers n 40 mg -22 10-23 tablet by ity of tablet 00:00: 04:59 mouth at [place] 00 :00 bedtime Medical for 30 Branch days. metoprolol 2021- No [id number] 12.5mg Take 0.5 Univers succinate 02-1023 tablets by ity of XL 25 mg 24 00:00: 04:59 mouth in [place] hr tablet 00 :00 the Medical morning Branch for 30 days. traMADoL 50 2021- No [id number] 50mg Take 1 Uni vers mg tablet 02-10 tablet by ity of 00:00: 04:59 mouth [place] 00 :00 every 6 Medical (six) Branch hours as needed for Pain (scale 7-10) for up to 7 days. Indication s: acute pain traMADoL 50 2021- No [id number] 50mg Take 1 Uni vers [...] :00 dose, On Medica l tablet 1 Mon Branch tablet 11/09/21 at 1730, Routine ketorolac No 15mg 15 mg, Unive rs (TORADOL) 11-09 Slow IV ity of injection 22:00: 21:05 Push, [place] 15 mg 00 :00 ONCE, 1 Medical dose, On Branch 11/09/21 at 1700, PIERRE HYDROcodone 2021- No 1{tbl} 1 tablet, Univers -acetaminop 11-05 Oral, ity of hen (NORCO) 07:15: 07:51 ONCE, 1 [place] 10-325 mg 00 :00 dose, On Medica l tablet 1 Mon Branch tablet 11/05/21 at 0215, Routine ketorolac 2021- No 30mg 30 mg, Unive rs (TORADOL) 11-05- Slow IV ity of injection 07:15: 07:49 Push, [place] 30 mg 00 :00 ONCE, 1 Medical dose, On Branch 11/05/21 at 0215, Routine gabapentin No 300mg 300 mg, Un charley (NEURONTIN) [...] at 0215, 1 mL gabapentin 2021- No [id number] 300mg Take 1 Univers 300 mg 11-05 capsule by ity of capsule 00:00: 04:59 mouth 3 [place] 00 :00 (three) Medical times Branch daily for 10 days. gabapentin 2021- No [id number] 300mg Take 1 Univers 300 mg 11-05 capsule by ity of capsule 00:00: 04:59 mouth 3 [place] 00 :00 (three) Medical times Branch daily for 10 days. aspirin 81 2021- No [id number] 81mg Take 1 Univers mg chewable 6-16 07-17 tablet by it y of tablet 00:00: 04:59 mouth [place] 00 :00 daily for Medical 30 days. [place] aspirin 81 2021- No [id number] 81mg Take 1 Univers mg chewable 6-16 07-17 tablet by it y of tablet 00:00: 04:59 mouth [place] 00 :00 daily for Medical 30 days. Branch aspirin 81 2021- No [id number] 81mg Take 1 Univers mg chewable 6-16 07-17 tablet by it y of tablet 00:00: 04:59 mouth [place] 00 :00 daily for Medical 30 days. [place] proMETHazin Yes [id number] 25mg Take 1 Univers e 25 mg 6-03 tablet by ity of tablet 00:00: mouth [place] 00 every 6 Medical (six) Branch hours as needed for Nausea and Vomiting (N/V). proMETHazin Yes [id number] 25mg Take 1 Univers e 25 mg 6-03 tablet by ity of tablet 00:00: mouth [place] 00 every 6 Medical (six) Branch hours as needed for Nausea and Vomiting (N/V). proMETHazin 2021-0 Yes [id number] 25mg Take 1 Univers e 25 mg 6-03 tablet by ity of tablet 00:00: mouth [place] 00 every 6 Medical (six) Branch hours as needed for Nausea and Vomiting (N/V). proMETHazin 2021-0 Yes [id number] 25mg Take 1 Univers e 25 mg 6-03 tablet by ity of tablet 00:00: mouth [place] 00 every 6 Medical (six) Branch hours as needed for Nausea and Vomiting (N/V). proMETHazin 2021-0 Yes [id number] 25mg Take 1 Univers e 25 mg 6-03 tablet by ity of tablet 00:00: mouth [place] 00 every 6 Medical (six) Branch hours as needed for Nausea and Vomiting (N/V). proMETHazin 2021-0 Yes [id number] 25mg Take 1 Univers e 25 mg 6-03 tablet by ity of tablet 00:00: mouth [place] 00 every 6 Medical (six) Branch hours as needed for Nausea and Vomiting (N/V). fenofibrate 2021- No [id number] 134mg Take 1 Univers micronized -19 12- capsule by it y of 134 mg 00:00: 04:59 mouth [place] capsule 00 :00 daily for Medical 30 days. Branch lisinopriL 2021- No [id number] 2.5mg Take 1 Univers 2.5 mg -19 12- tablet by ity of tablet 00:00: 04:59 mouth [place] 00 :00 daily for Medical 30 days. Branch fenofibrate 2021- No [id number] 134mg Take 1 Univers micronized 5-19 12- capsule by it y of 134 mg 00:00: 04:59 mouth [place] capsule 00 :00 daily for Medical 30 days. Branch lisinopriL 2021- No [id number] 2.5mg Take 1 Univers 2.5 mg 5-19 12- tablet by ity of tablet 00:00: 04:59 mouth [place] 00 :00 daily for Medical 30 days. Branch fenofibrate 2021-2021- No [id number] 134mg Take 1 Univers micronized -19 12- capsule by it y of 134 mg 00:00: 04:59 mouth [place] capsule 00 :00 daily for Medical 30 days. Branch lisinopriL 2021- No [id number] 2.5mg Take 1 Univers 2.5 mg -31 - tablet by ity of tablet 00:00: 04:59 mouth [place] 00 :00 daily for Medical 30 days. Branch furosemide 2021- No [id number] 40mg Take 1 Univers 40 mg 5-30 -30 tablet by ity of tablet 00:00: 04:59 mouth [place] 00 :00 every Medical morning Branch and evening for 30 days. apixaban 5 2021- No [id number] 5mg Take 1 Univ ers mg tablet -30 -30 tablet by ity of 00:00: 04:59 mouth 2 [place] 00 :00 (two) Medical times Branch daily for 30 days. Indication s: atrial fibrillati on calcitrioL 2021- No [id number] .5ug Take 1 Univers 0.5 mcg -30 -30 capsule by ity o f capsule 00:00: 04:59 mouth [place] 00 :00 daily for Medical 30 days. [place] insulin NPH 2021- No [id number] 5U inject 5 Univers (HUMULIN N 5-30 06-30 Units ity of NPH U-100 00:00: 04:59 under the [place] INSULIN) 00 :00 skin every Medic al 100 unit/mL evening Branc h injection for 30 days. atorvastati 2021- No [id number] 40mg Take 1 Univers n 40 mg 5-30 -30 tablet by ity of tablet 00:00: 04:59 mouth at [place] 00 :00 bedtime Medical for 30 Branch days. carvediloL 2021- No [id number] 3.125mg Take 1 Univers 3.125 mg 5-30 06-30 tablet by ity o f tablet 00:00: 04:59 mouth 2 [place] 00 :00 (two) Medical times Branch daily with meals for 30 days. furosemide 2021- No [id number] 40mg Take 1 Univers 40 mg 5-30 [...] s: atrial fibrillati on calcitrioL 2021- No [id number] .5ug Take 1 Univers 0.5 mcg 5-30 06-30 capsule by ity o f capsule 00:00: 04:59 mouth [place] 00 :00 daily for Medical 30 days. Branch insulin NPH 2021- No [id number] 5U inject 5 Univers (HUMULIN N 5-30 06-30 Units ity of NPH U-100 00:00: 04:59 [place]ULIN[place] 00 :00 skin every Medic al 100 unit/mL evening Branc h injection for 30 days. atorvastati 2021- No [id number] 40mg Take 1 Univers n 40 mg 5-30 06-30 tablet by ity of tablet 00:00: 04:59 mouth at [place] 00 :00 bedtime Medical for 30 Branch days. carvediloL 2021- No [id number] 3.125mg Take 1 [facility] 3.125 mg 5-30 06-30 tablet by ity o f tablet 00:00: 04:59 mouth 2 [place] 00 :00 (two) Medical times Branch daily with meals for 30 days. furosemide 2021- No [id number] 40mg Take 1 [facility] 40 mg 5-30 [...] s: atrial fibrillati on calcitrioL 2021- No [id number] .5ug Take 1 Univers 0.5 mcg 5-30 06-30 capsule by ity o f capsule 00:00: 04:59 mouth [place] 00 :00 daily for Medical 30 days. Branch insulin NPH 2021- No [id number] 5U inject 5 Univers (HUMULIN N 5-30 06-30 Units ity of NPH U-100 00:00: 04[place]59 [place] INSULIN[place] 00 :00 skin every Medic al 100 unit/mL evening Branc h injection for 30 days. atorvastati 2021- No [id number] 40mg Take 1 Univers n 40 mg 5-30 06-30 tablet by ity of tablet 00:00: 04:59 mouth at [place] 00 :00 bedtime Medical for 30 Branch days. carvediloL 2021- No [id number] 3.125mg Take 1 Univers 3.125 mg 5-30 -30 tablet by ity o f tablet 00:00: 04:59 mouth 2 [place] 00 :00 (two) Medical times Branch daily with meals for 30 days. metFORMIN Yes [id number] 500mg Take 1 U nivers 500 mg 3-02 tablet by ity of tablet 00:00: mouth [address] [place] [address] ([facility]) Medical times Branch daily with meals. metFORMIN Yes [id number] 500mg Take 1 U nivers 500 mg 3-02 tablet by ity of tablet 00:00: mouth [place] ([facility]) Medical times Branch daily with meals. metFORMIN Yes [id number] 500mg Take 1 U nivers 500 mg 3-02 tablet by ity of tablet 00:00: mouth [place] ([facility]) Medical times Branch daily with meals. metFORMIN Yes [id number] 500mg Take 1 U nivers 500 mg 3-02 tablet by ity of tablet 00:00: mouth [place] ([facility]) Medical times Branch daily with meals. metFORMIN Yes [id number] 500mg Take 1 U nivers 500 mg 3-02 tablet by ity of tablet 00:00: mouth [place] ([facility]) Medical times Branch daily with meals. metFORMIN Yes [id number] 500mg Take 1 U nivers 500 mg 3-02 tablet by ity of tablet 00:00: mouth 2 [place] ([facility]) Medical times Branch daily with meals. albuterol Yes [id number] 2{puff} Inhale 2 Univers 90 2-21 Puffs 2 ity of mcg/actuati 00:00: (two) [place] on inhaler 00 times Medical daily. Branch collagenase Yes [id number] Use as Univers 250 2-21 directed ity of unit/gram 00:00: by office Juan J as ointment 00 Medical Branch cyclobenzap Yes [id number] 10mg Take 1 Univers rine 10 mg 2-21 tablet by ity of tablet 00:00: mouth 2 [place] 00 (two) Medical times Branch daily as needed for Muscle Spasms. dextrometho Yes [id number] 10mL Take 10 mL Univers rphan-guaif 2-21 [...] for Pain (scale 4-6). melatonin 3 Yes [id number] 3mg Take 1 Univers mg tablet 2-21 tablet by ity o f 00:00: mouth at [place] 00 bedtime. Medical Branch ondansetron Yes [id number] 4mg Take 1 Univers 4 mg 2-21 tablet by ity of disintegrat 00:00: mouth [place] ing tablet 00 every 8 Medica l (eight) Branch hours as needed for Nausea and Vomiting (N/V). albuterol Yes [id number] 2{puff} Inhale 2 Univers 90 2-21 Puffs 2 ity of mcg/actuati 00:00: (two) [place] on inhaler 00 times Medical daily. Branch collagenase Yes [id number] Use as Univers 250 2-21 directed ity of unit/gram 00:00: by office Juan J as ointment 00 Medical Branch cyclobenzap Yes [id number] 10mg Take 1 Univers rine 10 mg 2-21 tablet by ity of tablet 00:00: mouth 2 [place] 00 (two) Medical times Branch daily as needed for Muscle Spasms. dextrometho Yes [id number] 10mL Take 10 mL Univers rphan-guaif 2-21 [...] for Pain (scale 4-6). melatonin 3 Yes [id number] 3mg Take 1 Univers mg tablet 2-21 tablet by ity o f 00:00: mouth at [place] 00 bedtime. Medical Branch ondansetron Yes [id number] 4mg Take 1 Univers 4 mg 2-21 tablet by ity of disintegrat 00:00: mouth [place] ing tablet 00 every 8 Medica l (eight) Branch hours as needed for Nausea and Vomiting (N/V). albuterol Yes [id number] 2{puff} Inhale 2 Univers 90 2-21 Puffs 2 ity of mcg/actuati 00:00: (two) [place] on inhaler 00 times Medical daily. Branch collagenase Yes [id number] Use as Univers 250 2-21 directed ity of unit/gram 00:00: by office Juan J as ointment 00 Medical Branch cyclobenzap Yes [id number] 10mg Take 1 Univers rine 10 mg 2-21 tablet by ity of tablet 00:00: mouth 2 [place] 00 (two) Medical times Branch daily as needed for Muscle Spasms. dextrometho Yes [id number] 10mL Take 10 mL Univers rphan-guaif 2-21 [...] for Pain (scale 4-6). melatonin 3 Yes [id number] 3mg Take 1 Univers mg tablet 2-21 tablet by ity o f 00:00: mouth at [place] 00 bedtime. Medical Branch ondansetron 2022-0 Yes [id number] 4mg Take 1 Univers 4 mg 2-21 tablet by ity of disintegrat 00:00: mouth [place] ing tablet 00 every 8 Medica l (eight) Branch hours as needed for Nausea and Vomiting (N/V). albuterol Yes [id number] 2{puff} Inhale 2 Univers 90 2-21 Puffs 2 ity of mcg/actuati 00:00: (two) [place] on inhaler 00 times Medical daily. Branch collagenase Yes [id number] Use as Univers 250 2-21 directed ity of unit/gram 00:00: by office Juan J as ointment 00 Medical Branch cyclobenzap Yes [id number] 10mg Take 1 Univers rine 10 mg 2-21 tablet by ity of tablet 00:00: mouth 2 [place] 00 (two) Medical times Branch daily as needed for Muscle Spasms. melatonin 3 Yes [id number] 3mg Take 1 Univers mg tablet 2-21 tablet by ity o f 00:00: mouth at [place] 00 bedtime. Medical Branch ondansetron Yes [id number] 4mg Take 1 Univers 4 mg 2-21 tablet by ity of disintegrat 00:00: mouth [place] ing tablet 00 every 8 Medica l (eight) Branch hours as needed for Nausea and Vomiting (N/V). albuterol Yes [id number] 2{puff} Inhale 2 Univers 90 2-21 Puffs 2 ity of mcg/actuati 00:00: (two) [place] on inhaler 00 times Medical daily. Branch collagenase Yes [id number] Use as Univers 250 2-21 directed ity of unit/gram 00:00: by office Juan J as ointment 00 Medical Branch cyclobenzap Yes [id number] 10mg Take 1 Univers rine 10 mg 2-21 tablet by ity of tablet 00:00: mouth 2 [place] 00 (two) Medical times Branch daily as needed for Muscle Spasms. melatonin 3 Yes [id number] 3mg Take 1 Univers mg tablet 2-21 tablet by ity o f 00:00: mouth at [place] 00 bedtime. Medical Branch ondansetron 0 Yes [id number] 4mg Take 1 Univers 4 mg 2-21 tablet by ity of disintegrat 00:00: mouth [place] ing tablet 00 every 8 Medica l (eight) Branch hours as needed for Nausea and Vomiting (N/V). albuterol Yes [id number] 2{puff} Inhale 2 Univers 90 2-21 Puffs 2 ity of mcg/actuati 00:00: (two) [place] on inhaler 00 times Medical daily. Branch collagenase Yes [id number] Use as Univers 250 2-21 directed ity of unit/gram 00:00: by office Juan J as ointment 00 Medical Branch cyclobenzap Yes [id number] 10mg Take 1 Univers rine 10 mg 2-21 tablet by ity of tablet 00:00: mouth 2 [place] 00 (two) Medical times Branch daily as needed for Muscle Spasms. melatonin 3 Yes [id number] 3mg Take 1 Univers mg tablet 2-21 tablet by ity o f 00:00: mouth at [place] 00 bedtime. Medical Branch ondansetron Yes [id number] 4mg Take 1 Univers 4 mg 2-21 tablet by ity of disintegrat 00:00: mouth [place] ing tablet 00 every 8 Medica l (eight) Branch hours as needed for Nausea and Vomiting (N/V). dextrometho 2021- No [id number] 10mL Take 10 mL Univers rphan-guaif 07-12 by mouth ity of enesin 00:00: 00:00 every 6 [place] 10-100 mg/5 00 :00 (six) Medical mL solution hours as Bran ch needed for Cough. HYDROcodone 2021- No 1{tbl} Take 1 U nivers -acetaminop 07-12 tablet by it y of hen 5-325 00:00: 00:00 mouth [place] mg tablet 00 :00 every 6 Medical (six) Branch hours as needed for Pain (scale 4-6). Aspirin 81 Aspirin 81 2017- No Alexis [address] [facility] Mg Tab.chew Mg Tab.chew 10-26 Brooke Frankel 00:00: 00:00 Patient 00 :00 [facility] Diflunisal Diflunisal 2015- No Todd Wynn [address] [facility] (Dolobid) (Dolobid) 01-17 [facility] 500 Mg 500 Mg 00:00: 00:00 Patient Tablet, 500 Tablet, 500 00 :00 M edical Mg Oral Mg Oral Center Ondansetron Ondansetron 2016- No Todd Wynn [address] [facility] Hcl Hcl 01-17 [place] as [facility] (Zofran*) 4 (Zofran*) 4 00:00: 00:00 needed for Patient Mg Tablet, Mg Tablet, 00 :00 Nausea M edical 4 Mg 4 Mg Center Sublingual Sublingual Clopidogrel Clopidogrel Yes [address] [facility] Bisulfate Bisulfate [facility] (Plavix) 75 (Plavix) 75 P atient Mg Tablet Mg Tablet Medic al Center Cyclobenzap Cyclobenzap Yes [address] [facility] rine Hcl rine Hcl Times A [facility] (Flexeril) (Flexeril) Day as P atient 5 Mg Tablet 5 Mg Tablet needed for Medical Muscle Center Spasms Doxazosin Doxazosin Yes [address] [facility] Mesylate Mesylate [facility] (Cardura) 8 (Cardura) 8 P atient Mg [...] Tablet Mg Tablet Day [facility] Patient Medical [place] Hydrocodone Hydrocodone Yes [address] [facility] Bit/Acetami Bit/Acetami Hours as [facility] nophen nophen needed for [place] ([place] [facility] 10-325 10-325 Center Tablet) 1 [...] Mg Tablet Mg Tablet Patie nt Medical [place] Nitroglycer Nitroglycer Yes As Needed [facility] in in [facility] (Nitrostat) (Nitrostat) P atient 0.4 Mg 0.4 Mg Medical Tab.subl Tab.subl Center Omeprazole Omeprazole Yes [address] 20 Mg 20 Mg [facility] Capsule.dr Lind. [facility] Simvastatin Simvastatin Yes [address] [facility] 80 Mg 80 Mg [facility] Tablet Tablet Patient [facility] Tamsulosin Tamsulosin Yes Daily [facility] Hcl 0.4 Mg Hcl 0.4 Mg Esme es Cap.er.24h Cap.er.24h [facility] Tramadol Tramadol Yes [address] [facility] Hcl Hcl Daily as [facility] (Ultram) 50 (Ultram) 50 needed for Patient Mg Tablet Mg Tablet Pain Medic al Center Venlafaxine Venlafaxine Yes [address] [facility] Hcl 75 Mg Hcl 75 Mg [facility] Tab Tab Patient [facility] Albuterol Albuterol 2017- No [address] [facility] Sulfate Sulfate 10-15 Day as [facility] (Proair Hfa (Proair Hfa 00:00 needed for Patient Inhaler*) Inhaler*) :00 Shortness Medical 8.5 Gm Inh, 8.5 Gm Inh, Of Breath Center 1 Inh 1 Inh Inhalation Inhalation Dicyclomine Dicyclomine 2017- No [address] [facility] Hcl 20 Mg Hcl 20 Mg 10-15 Daily Esme es Tablet, 20 Tablet, 20 00:00 Pa tient Mg Oral Mg Oral :00 Medical Center [...] 0.4 Mg Center Intraven Intraven Venlafaxine Venlafaxine 37.[address] [facility] Hcl 75 Mg Hcl 75 Mg 10-15 Luke s Tab, 37.5 Tab, 37.5 00:00 Manjula ent Mg Oral Mg Oral :00 Medical Center Clindamycin Clindamycin [address] [facility] [address] Hcl 150 Mg Hcl 150 Mg 08-16 Times A [facility] Capsule, Capsule, 00:00 Day Patien t 300 Mg Oral 300 Mg Oral :00 M edical Center Ibuprofen Ibuprofen [address] [facility] 600 Mg 600 Mg 0816 Times A [facility] Tablet, 800 Tablet, 800 00:00 Day as Patient Mg Oral Mg Oral :00 needed for Med ical Mild Pain Center (1-3) Ranolazine Ranolazine [address] [facility] (Ranexa) (Ranexa) 16 Day [facility] 500 Mg 500 Mg 00:00 Patient Tabsr, 1000 Tabsr, 1000 :00 M edical Mg Oral Mg Oral Center Insulin Insulin [address] [facility] Human Nph Human Nph 09-08 Luke [facility] (Humulin N) (Humulin N) 00:00 Patient 100 100 :00 Medical Units/Ml Units/Ml Center Ml, 32 Ml, 32 Units Units Subcutaneou Subcutaneou sly sly Insulin Insulin [address] [address] Regular, Regular, - Times A Esme es Human Human 00:00 Day Patient (Humulin R) (Humulin R) :00 M edical 100 Unit/1 100 Unit/[address] Ml Vial, 45 Ml Vial, 45 Units Units Subcutaneou Subcutaneou sly sly Ranolazine Ranolazine [address] [facility] ([place]an[place]a) (Ranexa) 09-08 Day [facility] 500 Mg 500 Mg 00:00 Patient Tabsr, 1000 Tabsr, 1000 :00 M edical Mg Oral Mg Oral Center Insulin Insulin Before [facility] Regular, Regular, 03-22 Meals [facility] Human Human 00:00 Patient (Humulin R) (Humulin R) :00 M edical 100 Unit/1 100 Unit/[address] Ml Vial, 20 Ml Vial, 20 Units Sub-Q Units Sub-Q Omeprazole Omeprazole [facility] 40 Mg 40 Mg 06-17 [facility] Capsule., Capsule., 00:00 Patient :00 [facility] Insulin Insulin 90 [facility] A [facility] Glargine Glargine 05-01 Day [facility] (Lantus) (Lantus) 00:00 Patien t 100 100 :00 Medical Units/Ml Units/Ml Center Ml, 90 Unit Ml, 90 Unit Subcutaneou Subcutaneou sly sly Insulin Insulin Three [facility] Regular, Regular, - Times A Esme es Human Human 00:00 Day Patient (Humulin R) (Humulin R) :00 M edical 100 Unit/1 100 Unit/[address] Ml Vial, 25 Ml Vial, 25 Unit Unit Subcutaneou Subcutaneou sly sly Isosorbide Isosorbide [address] Mononitrate Mononitrate 05-01 [facility] (Isosorbide (Isosorbide 00:00 Patient Mononitrate Mononitrate :00 M edical Er) 30 Mg Er) 30 Mg Cente r Tab.er.24h, Tab.er.24h, 60 Mg Oral 60 Mg Oral Metoprolol Metoprolol [address] Tartrate 25 Tartrate 25 05-01 [facility] Mg Tablet, Mg Tablet, 00:00 Pa tient 25 Mg Oral 25 Mg Oral :[address] [facility] Albuterol Albuterol As Needed [facility] Sulfate Sulfate 11-23 as needed Esme es (Ventolin (Ventolin 00:00 for Manjula ent Hfa) 18 Gm Hfa) 18 Gm :[facility] Hfa.aer.ad, Hfa.aer.ad, Of Breath Center 90 Mcg 90 Mcg Inhalation Inhalation Dicyclomine Dicyclomine Twice A [facility] Hcl 10 Mg Hcl 10 Mg 11-23 Day Luke [facility] Capsule, 10 Capsule, 10 00:00 Patient Mg Oral Mg Oral :00 [facility] Methocarbam Methocarbam [address] [address] ol ol - Times A [facility] (Robaxin) (Robaxin) 00:00 Day Manjula ent 500 Mg 500 Mg :00 Medical Tablet, 500 Tablet, 500 C enter Mg Oral Mg Oral Metronidazo Metronidazo [address] [facility] le 500 Mg le 500 Mg 11-23 Luke s Tablet, 500 Tablet, 500 00:00 Patient Mg Oral Mg Oral :00 Medical Center Nitroglycer Nitroglycer No .[address] [facility] in in 11-23 for Chest [facility] (Nitrostat) (Nitrostat) 00:00 Pain Patient 0.4 Mg 0.4 Mg :00 Medical Tab.subl, Tab.subl, Cente r 0.4 Mg 0.4 Mg Sublingual Sublingual Pantoprazol Pantoprazol [address] e Sodium e Sodium 11-23 [facility] (Protonix) (Protonix) 00:00 Pa tient 40 Mg 40 Mg :00 Medical Tablet., Tablet., [facility] 40 Mg Oral 40 Mg Oral Sucralfate Sucralfate [address] [facility] 1 Gm 1 Gm 11-23 Day [facility] Tablet, 1 Tablet, 1 00:00 Manjula ent Gm Oral Gm Oral :00 Medical Center Temazepam Temazepam [address] [facility] (Restoril) (Restoril) 11-23 Theresa kes 30 Mg 30 Mg 00:00 Patient Capsule, 30 Capsule, 30 :00 M edical Mg Oral Mg Oral Center Tizanidine Tizanidine [address] Hcl 4 Mg Hcl 4 Mg 11-23 [facility] Capsule, 4 Capsule, 4 00:00 Pa tient Mg Oral Mg Oral :00 Medical Center Trazodone Trazodone No [address] [facility] Hcl 50 Mg Hcl 50 Mg 11-23 Luke s Tablet, 50 Tablet, 50 00:00 Pa tient Mg Oral Mg Oral :00 Medical Center Venlafaxine Venlafaxine 37.[address] [facility] Hcl 37.5 Mg Hcl 37.5 Mg 11-23 Day [facility] Tablet, Tablet, 00:00 Patient 37.5 Tab 37.5 Tab :00 Medical Oral Oral Center Cyclobenzap Cyclobenzap 2014- No [address] rine Hcl 10 rine Hcl 10 07- Times A [facility] Mg Tablet, Mg Tablet, 00:00 Day Pa tient 10 Mg Oral 10 Mg Oral :00 Med ical Center Gabapentin Gabapentin 2014- No [address] 300 Mg 300 Mg 07- Times A [facility] Capsule, Capsule, 00:00 Day Patien t 600 Mg Oral 600 Mg Oral :00 M [facility] Pregabalin Pregabalin 2013- No [address] [facility] (Lyrica) (Lyrica) 01-02 Day [facility] 150 Mg 150 Mg 00:00 Patient Capsule, Capsule, :00 Medical 150 Mg Oral 150 Mg Oral C enter Zolpidem Zolpidem 2013- No [address] Tartrate Tartrate 01-02 [facility] (Ambien) 10 (Ambien) 10 00:00 Patient Mg Tablet, Mg Tablet, :00 Med ical 10 Mg Oral [address] Immunizations Ordered Filled Immunization Date Status Comments [facility] e Immunization Name Name Influenza Virus 2021-01-16 Completed Universit y of Vaccine 00:00:00 [facility] [place] [facility] Influenza Virus 2021-01-16 Completed Universit y of Vaccine 00:00:00 [facility] [place] [facility] Influenza Virus 2021-01-16 Completed Universit y of Vaccine 00:00:00 [facility] [place] [facility] Influenza Virus 2021-01-16 Completed Universit y of Vaccine 00:00:00 [facility] [place] [facility] Influenza Virus 2021-01-16 Completed Universit y of Vaccine 00:00:00 [facility] [place] [facility] Influenza Virus 2021-01-16 Completed Universit y of Vaccine 00:00:00 [facility] [place] [facility] SARS-COV-2 COVID-19 2020-10-16 Completed Unive rsity of PEDRO/J&J VACCINE 00:00:00 [facility] [place] [facility] SARS-COV-2 COVID-19 2020-10-16 Completed Unive rsity of PEDRO/J&J VACCINE 00:00:00 [facility] [place] [facility] SARS-COV-2 COVID-19 2020-10-16 Completed Unive rsity of PEDRO/J&J VACCINE 00:00:00 [facility] [place] [facility] SARS-COV-2 COVID-19 2020-10-16 Completed Unive rsity of PEDRO/J&J VACCINE 00:00:00 [facility] [place] [facility] SARS-COV-2 COVID-19 2020-10-16 Completed Unive rsity of PEDRO/J&J VACCINE 00:00:00 [facility] [place] [facility] SARS-COV-2 COVID-19 2020-10-16 Completed Unive rsity of PEDRO/J&J VACCINE 00:00:00 [facility] [place] [facility] Influenza Virus 2020-01-21 Completed Universit y of Vaccine 00:00:00 [facility] [place] [facility] Influenza Virus 2020-01-21 Completed Universit y of Vaccine 00:00:00 [facility] [place] [facility] Influenza Virus 2020-01-21 Completed Universit y of Vaccine 00:00:00 [facility] [place] [facility] Influenza Virus 2020-01-21 Completed Universit y of Vaccine 00:00:00 [facility] [place] [facility] Influenza Virus 2020-01-21 Completed Universit y of Vaccine 00:00:00 [facility] [place] [facility] Influenza Virus 2020-01-21 Completed Universit y of Vaccine 00:00:00 [facility] [place] [facility] Zoster Vaccine 2019-07-17 Completed University of Recombinant 00:00:00 [facility] [place] [facility] Zoster Vaccine 2019-07-17 Completed University of Recombinant 00:00:00 [facility] [place] [facility] Zoster Vaccine 2019-07-17 Completed University of Recombinant 00:00:00 [facility] [place] [facility] Zoster Vaccine 2019-07-17 Completed University of Recombinant 00:00:00 [facility] [place] [facility] Zoster Vaccine 2019-07-17 Completed University of Recombinant 00:00:00 [facility] [place] [facility] Zoster Vaccine 2019-07-17 Completed University of Recombinant 00:00:00 [facility] [place] [facility] Td 2019-03-29 Completed University of 00:00:00 [facility] [place] [facility] Td 2019-03-29 Completed University of 00:00:00 [facility] [place] [facility] Td 2019-03-29 Completed University of 00:00:00 [facility] [place] [facility] Td 2019-03-29 Completed University of 00:00:00 [facility] [place] [facility] Td 2019-03-29 Completed University of 00:00:00 [facility] [place] [facility] Td 2019-03-29 Completed University of 00:00:00 [facility] [place] [facility] Influenza Virus 2018-02-18 Completed Universit y of Vaccine 00:00:00 [facility] [place] [facility] Pneumococcal 2018-02-18 Completed University o f Polysaccharide, 00:00:00 [place] Med ical PPSV23 (PNEUMOVAX) [place] Influenza Virus 2018-02-18 Completed Universit y of Vaccine 00:00:00 [facility] [place] [facility] Pneumococcal 2018-02-18 Completed University o f Polysaccharide, 00:00:00 [place] Med ical PPSV23 (PNEUMOVAX) [place] Influenza Virus 2018-02-18 Completed Universit y of Vaccine 00:00:00 [facility] [place] [facility] Pneumococcal 2018-02-18 Completed University o f Polysaccharide, 00:00:00 [place] Med ical PPSV23 (PNEUMOVAX) Branch Influenza Virus 2018-02-18 Completed Universit y of Vaccine 00:00:00 [facility] [place] [facility] Pneumococcal 2018-02-18 Completed University o f Polysaccharide, 00:00:00 [place] Med ical PPSV23 (PNEUMOVAX) Branch Influenza Virus 2018-02-18 Completed Universit y of Vaccine 00:00:00 [facility] [place] [facility] Pneumococcal 2018-02-18 Completed University o f Polysaccharide, 00:00:00 [place] Med ical PPSV23 (PNEUMOVAX) Branch Influenza Virus 2018-02-18 Completed Universit y of Vaccine 00:00:00 [facility] [place] [facility] Pneumococcal 2018-02-18 Completed University o f Polysaccharide, 00:00:00 [place] Med ical PPSV23 (PNEUMOVAX) Branch Influenza Virus 2008-03-19 Completed Universit y of Vaccine 00:00:00 [facility] [place] [facility] Pneumococcal 2008-03-19 Completed University o f Polysaccharide, 00:00:00 [place] Med ical PPSV23 (PNEUMOVAX) Branch Influenza Virus 2008-03-19 Completed Universit y of Vaccine 00:00:00 [facility] [place] [facility] Pneumococcal 2008-03-19 Completed University o f Polysaccharide, 00:00:00 [place] Med ical PPSV23 (PNEUMOVAX) Branch Influenza Virus 2008-03-19 Completed Universit y of Vaccine 00:00:00 [facility] [place] [facility] Pneumococcal 2008-03-19 Completed University o f Polysaccharide, 00:00:00 [facility] ical PPSV23 (PNEUMOVAX) Branch Influenza Virus 2008-03-19 Completed Universit y of Vaccine 00:00:00 [facility] [place] [facility] Pneumococcal 2008-03-19 Completed University o f Polysaccharide, 00:00:00 [place] Med ical PPSV23 (PNEUMOVAX) Branch Influenza Virus 2008-03-19 Completed Universit y of Vaccine 00:00:00 [facility] [place] [facility] Pneumococcal 2008-03-19 Completed University o f Polysaccharide, 00:00:00 [place] Med ical PPSV23 (PNEUMOVAX) Branch Influenza Virus 2008-03-19 Completed Universit y of Vaccine 00:00:00 [facility] [place] [facility] Pneumococcal 2008-03-19 Completed University o f Polysaccharide, 00:00:00 [place] Med ical PPSV23 (PNEUMOVAX) [place] Vital Signs Vital Name Observation Time Observation Value Comments Source Systolic blood 2022-02-10 105 mm[Hg] University of pressure 16:35:00 [facility] Branch Diastolic blood 2022-02-10 57 mm[Hg] University o f pressure 16:35:00 [facility] Branch Heart rate 2022-02-10 65 /min University of 16:35:00 [facility] [place] [facility] Body temperature 2022-02-10 36.22 Sandy University of 16:35:00 [facility] Branch Respiratory rate 2022-02-10 18 /min University of 16:35:00 [facility] [place] [facility] Oxygen saturation 2022-02-10 98 /min University of in Arterial blood 16:35:00 [place] Medi uriel by Pulse oximetry Branch Body weight 2022-02-10 74.98 kg University of 08:16:00 [facility] [place] [facility] BMI 2022-02-10 25.89 kg/m2 University of 08:16:00 [facility] [place] [facility] Body height 2022-02-10 170.2 cm Height before University of 01:18:00 Bilat BKA [facility] [place] [facility] Systolic blood 2021-11-09 124 mm[Hg] University of pressure 23:00:00 [facility] [place] [facility] Diastolic blood 2021-11-09 69 mm[Hg] University o f pressure 23:00:00 [facility] Branch Heart rate 2021-11-09 72 /min University of 23:00:00 [facility] [place] [facility] Respiratory rate 2021-11-09 25 /min University of 23:00:00 [facility] [place] [facility] Oxygen saturation 2021-11-09 98 /min University of in Arterial blood 23:00:00 [facility] uriel by Pulse oximetry Branch Body temperature 2021-11-09 37.22 [place] University of 20:28:39 [facility] [place] [facility] Body height 2021-11-09 170.2 cm University of 20:16:00 [facility] [place] [facility] Body weight 2021-11-09 71.215 kg University of 20:16:00 [facility] [place] [facility] BMI 2021-11-09 24.59 kg/m2 University of 20:16:00 [facility] [place] [facility] Systolic blood 2021-11-05 134 mm[Hg] University of pressure 10:00:00 [facility] Branch Diastolic blood 2021-11-05 78 mm[Hg] University o f pressure 10:00:00 [facility] [place] [facility] Heart rate 2021-11-05 81 /min University of 10:00:00 [facility] [place] [facility] Body temperature 2021-11-05 36.28 [place] University of 08:10:00 [place] [facility] Respiratory rate 2021-11-05 18 /min [facility] 08:00:00 [facility] [place] [facility] Oxygen saturation 2021-11-05 99 /min [facility] Arterial blood 08:00:00 [facility] by Pulse oximetry [place] Body height 2021-11-05 170.2 cm [facility] 05:48:00 [facility] [place] [facility] Body weight 2021-11-05 71.215 kg [facility] 05:48:00 [facility] [place] [facility] BMI 2021-11-05 24.59 kg/m2 [facility] 05:48:00 [facility] Procedures Procedure Date / Time Performing Clinician Source Performed INSURANCE CORRESPONDENCE 2022-04-19 06:01:00 Doctor Unassigned, [place] [facility] [place] TRANSTHORACIC ECHO (TTE) 2022-02-10 13:16:00 Martha Rowe [facility] COMPLETE W/ CONTRAST Medical Bra nch PHOSPHORUS 2022-02-10 10:22:00 Martha Rowe [facility] MAGNESIUM 2022-02-10 10:22:00 Martha Rowe [facility] TROPONIN I 2022-02-10 10:22:00 Martha Rowe [facility] COMP. METABOLIC PANEL 2022-02-10 10:22:00 Martha Rowe [facility] ([id number]) [facility] CBC WITH DIFF 2022-02-10 10:22:00 Martha Rowe [facility] CREATINE KINASE 2022-02-10 04:37:00 Martha Rowe [facility] URIC ACID 2022-02-10 04:37:00 Martha Rowe [facility] FERRITIN SERUM 2022-02-10 04:37:00 Martha Rowe [facility] FOLATE 2022-02-10 04:37:00 Martha Rowe [facility] TROPONIN I 2022-02-10 04:37:00 Martha Rowe [facility] THYROID STIMULATING 2022-02-10 04:37:00 Martha Rowe [facility] HORMONE Medical Branch LIPID PANEL (35190)(TOTAL 2022-02-10 04:37:00 Jae, [facility] CHOLESTEROL, Medical Branch TRIGLYCERIDES, HDL) IRON PANEL 2022-02-10 04:37:00 Martha Rowe [facility] GLYCOSYLATED HEMOGLOBIN 2022-02-10 04:37:00 Martha Rowe [facility] (A1C) [facility] N-TERMINAL PRO-BNP 2022-02-10 04:37:00 Jae daisy [facility] VITAMIN D, 25-OH 2022-02-10 04:37:00 Jae daisy [facility] COVID-19 (ID NOW RAPID 2022-02-10 04:37:00 Martha Rowe [facility] TESTING) [facility] B-TYPE NATRIURETIC FACTOR 2022-01-30 18:10:00 CH I [facility] (BNP) Center XR CHEST 1 VW 2021-11-09 21:07:00 Troy Ku Cmkenzie [facility] POCT GLUCOSE (AUTOMATED) 2021-11-09 20:25:00 Tory Ku [facility] MAGNESIUM 2021-11-09 20:19:00 Troy Ku [facility] TROPONIN I 2021-11-09 20:19:00 Troy Ku [facility] COMP. METABOLIC PANEL 2021-11-09 20:19:00 Troy Ku [facility] ([id number]) [facility] Branch CBC WITH DIFF 2021-11-09 20:19:00 Troy Ku [facility] N-TERMINAL PRO-BNP 2021-11-09 20:19:00 Troy Ku [facility] XR CHEST 1 VW 2021-11-05 06:38:35 Mihaela Martin [facility] [id number] 2020-08-11 00:00:00 ALDMO [facility] [id number] 2020-08-11 00:00:00 ALDMO [facility] [id number] 2020-08-11 00:00:00 ALDMO [facility] [id number] 2020-08-11 00:00:00 ALDMO [facility] Computed tomography 2017-10-24 00:00:00 BROOKE ALEXIS LUCY [facility] Patient angiography of brain Medical Agustin ter CT angiography of chest 2017-10-23 00:00:00 KHAI WAHL V C [facility] Computed tomography of 2017-10-23 00:00:00 KHAI WAHL V [facility] Patient brain without [facility] contrast Computed tomography of 2017-04-04 00:00:00 JACQUELYN MONTES DE OCA [facility] contrast Computed tomography of 2017-04-04 00:00:00 SWEET LAIRD A [facility] Patient cervical spine without Medical C enter contrast US abdomen complete 2017-03-08 00:00:00 JAHWICHOSCOTT LUCY [facility] Encounters Start End Encounter Admission Attending Care Care Encounter Source Date/Time Date/Time Type Type Clinicians Facility Department ID 2021-06-17 Outpatient 3 [id number] ENCKY MALDONADO [id number] [facility] 10:24:03 [id number] [facility] 2021-06-17 Outpatient 3 [id number] ENCKY REF [id number] [facility] 10:22:04 [id number] [facility] 2021-03-22 Emergency [facility] [id number] Univers 15:25:20 ity of [facility] 2021-03-22 Emergency [facility] [id number] Univers 10:56:41 ity of [facility] 2021-03-21 Emergency [facility] [id number] Univers 18:15:08 ity of [facility] 2021-03-21 Emergency [facility] [id number] Univers 17:18:22 ity of [facility] 2021-03-21 Emergency [facility] [id number] Univers 12:58:19 ity of [facility] 2021-03-21 Emergency [facility] [id number] Univers 04:06:22 ity of [facility] 2021-03-21 Emergency [facility] [id number] Univers 00:12:27 ity of [facility] 2021-03-20 Emergency [facility] [id number] Univers 00:55:44 ity of [facility] 2021-03-19 Emergency [facility] [id number] Univers 17:28:47 ity of [facility] 2021-03-19 Emergency [facility] [id number] Univers 03:16:03 ity of [facility] 2021-03-18 Emergency [facility] [id number] Univers 13:56:50 ity of [facility] 2020-08-23 Inpatient HCACL FERNANDO [id number] [facility] 17:41:00 84 [facility] 2020-04-04 Inpatient Marko, HCAMN HCAMN [id number] [facility] 14:40:00 Edward 33 [facility] 2019-10-15 Inpatient RADHA Shah, HCAPM ENDO [id number] [facility] 15:30:00 Finn [id number] [facility] 2022-04-19 2022-04-19 Orders Doctor JOSE 1.2.840.114 [id number] Univers 00:00:00 00:00:00 Only Unassigned, [place] 350.1.13.10 ity of [place] [facility] 4.2.7.2.686 Juan J as [phone] [facility] 009 Branch 2022-02-11 2022-02-11 Transition LATRICE Harding 1.2.840.114 [id number] Univers 00:00:00 00:00:00 of Care Josselyntoni DUQUE 350.1.13.10 it y of [place] [id number] [facility] 403 Branch 2022-02-09 2022-02-10 Outpatient U JAE [facility] DARIUS [id number] Univers 19:53:00 13:45:00 MARTHA ity of [facility] 2022-02-09 2022-02-10 Hospital Ana Maria Meza [facility] 1.2.840.114 [id number] Univers 19:53:00 13:45:00 Encounter Martha Rowe 350.1.13.10 ity of [place].7.2.[place] [id number] [facility] 081 Branch 2022-01-30 2022-01-30 [facility] [id number] 00:00:00 00:00:00 Requisitio Esme [facility] 2022-01-30 2022-01-[address] [facility] [id number] 00:00:00 00:00:00 Requisitio Esme [facility] 2021-11-09 2021-11-09 Emergency X Troy KU [facility] ERT [id number] Univers 15:15:00 18:32:00 ity of [facility] 2021-11-09 2021-11-09 Emergency Troy Ku [facility] 1.2.840.114 [id number] Univers 15:15:00 18:32:00 Mckenzie PEREZ 350.1.13.10 i ty of [place] 4.2.7.2.686 [facility] [id number] [place] [id number] [place] 2021-11-05 2021-11-05 Emergency [facility] E[facility] [id number] Univers 00:44:00 06:53:[address] [facility] 2021-11-05 2021-11-05 Emergency [facility] 1.2.936.457 [id number] Univers 00:44:00 06:53:00 Mihaela PEREZ 350.1.13.[address] [facility] 4.2.7.2.686 [facility] [id number] [facility] 084 [place] 2021-11-04 2021-11-04 Transition Feliciano CLAUDETTETanya 1.2.840.114 [id number] Univers 00:00:00 00:00:00 of Care Micaela DUQUE 350.1.13.10 it y of [place] 4.2.7.2.686 [facility] [id number] [facility] 403 Branch 2021-11-02 2021-11-03 Outpatient X BRAYDON [facility] DARIUS [id number] Univers 22:35:00 15:46:[address] [facility] 2021-11-02 2021-11-03 Emergency Curtis Xavier [facility] 1.2.840. 114 [id number] Univers 22:35:00 15:46:00 Oc Bryson 350.1.13.10 ity of [place] 4.2.7.2.686 [facility] [id number] [facility] 081 Branch 2021-11-02 2021-11-03 Outpatient X BRAYDON [facility] DAR[facility]US [id number] Univers 22:35:00 15:46:[address] [facility] 2021-11-01 2021-11-01 Transition LATRICE Feliciano 1.2.840.114 [id number] Univers 00:00:00 00:00:00 of Care Micaela DUQUE 350.1.13.10 it y of [place] 4.2.7.2.686 [facility] [id number] [facility] 403 Branch 2021-10-27 2021-10-29 Outpatient X DERRICK [facility] [id number] Univers 17:41:00 14:03:[address] [facility] 2021-10-27 2021-10-29 Emergency Jameson Mejia [facility] 1.2.840. 114 [id number] Univers 17:41:00 14:03:00 Lizett Gerardo 350.1.13.10 ity of [place] Maria Meza 4.2.7.2.686 [facility] [phone] [address] 2021-10-27 2021-10-29 Outpatient [facility] DAR[facility]US [id number] Univers 17:41:00 14:03:[address] [facility] 2021-10-21 2021-10-22 Emergency [facility] ERT [id number] Univers 20:24:00 04:18:00 JYOTI [facility] 2021-10-21 2021-10-22 Emergency [facility] 1.2.966.742 [id number] Univers 20:24:00 04:18:00 Jyoti PEREZ 350.1.13.10 i Joy 4.2.7.2.686 [facility] [id number] [facility] 084 Branch 2021-10-20 2021-10-20 Transition LATRICE Aleman 1.2.840.114 [id number] Univers 00:00:00 00:00:00 of Care Rico A DUQUE 350.1.13.10 it[place] of [place] [id number] [facility] 403 Branch 2021-10-15 2021-10-18 Outpatient X DERRICK [facility] DARIUS [id number] Univers 16:42:00 13:52:[address] [facility] 2021-10-15 2021-10-18 Emergency Jameson Mejia [facility] 1.2.840. 114 [id number] Univers 16:42:00 13:52:00 Ana Maria Meza 350.1.13.10 it[place] of [place].2.7.2.[place] [id number] [facility] 081 Branch 2021-07-23 2021-07-23 Transition LATRICE Farooq 1.2.840.114 [id number] Univers 00:00:00 00:00:00 of Care Marcella DUQUE 350.1.13.10 i ty [place] [phone] [address] 2021-07-19 2021-07-22 Inpatient X [facility] DARIUS [id number] Univers 09:10:00 17:00:[address] [facility] 2021-07-19 2021-07-22 [facility] Brandyn Dumont [facility] 1.2.840.1 14 [id number] Univers 09:10:00 17:00:00 Encounter [facility] 350.1.13.10 ity of [place].2.[place] [id number] [facility] 109 Branch ([facility]) 2021-07-21 2021-07-21 Outpatient Wong_H VFP VFP [id number] Village 06:58:00 06:58:00 [id number] Family Practic e 2021-07-13 2021-07-13 Transition LATRICE Aleman 1.2.840.114 [id number] Univers 00:00:00 00:00:00 of Care Rico DUQUE 350.1.13.10 [place] of [place] [id number] [address] 2021-06-28 2021-07-12 Inpatient X ANGEL [facility] D[facility] [id number] Univers 10:43:00 18:25:[address] [facility] 2021-06-28 2021-07-12 [facility] Jameson Mejia [facility] 1.2.840.1 [id number] Univers 10:43:00 18:25:00 Encounter Troy Ku 350.1.13.10 ity of Ambika Fernandez [place] 4.2.7.2.686 [facility] [phone] [facility] 081 Branch 2021-02-15 2021-02-15 Outpatient R DONALDO, [facility] [id number] Univers 15:00:00 15:00:00 ALECIA [facility] 2021-01-11 2021-01-11 [facility] [id number] Univers 10:45:00 10:45:00 GINA baugh o f [facility] 2021-01-05 2021-01-05 Transition Latrice Aleman 1.2.840.114 [id number] Univers 00:00:00 00:00:00 of Care Rico Duque 350.1.13.10 ity of [place] [phone] [facility] 403 Branch 2021-01-01 2021-01-04 [facility] Wayne Can [facility] 1.2.840.1 14 [id number] Univers 14:18:00 18:10:00 Encounter Lizett Gerardo 350.1.13.10 ity of [place].2.686 [place] [id number] [facility] 081 Branch 2021-01-01 2021-01-01 Orders Doctor JOSE 1.2.840.114 [id number] Univers 00:00:00 00:00:00 Only Unassigned, [place] 350.1.13.10 ity of [facility] 4.2.7.2.686 Juan J as [phone] [facility] 009 Branch 2020-12-17 2020-12-17 Transition Latrice Harding 1.2.840.114 [id number] Univers 00:00:00 00:00:00 of Care Josselyn Duque 350.1.13.10 it y of [place] 4.2.7.2.686 [facility] [phone] [facility] 403 Branch 2020-12-14 2020-12-16 Emergency Jyoti Cedeno S [facility] 1.2.840.1 14 [id number] Univers 17:50:00 17:46:00 Ana Maria Meza 350.1.13.10 ity of [place] 4.2.7.2.686 [facility] [id number] [facility] 081 Branch 2020-11-16 2020-11-16 Orders Doctor JOSE 1.2.840.114 [id number] Univers 00:00:00 00:00:00 Only Unassigned, [place] 350.1.13.10 ity of [place] [facility] 4.2.7.2.686 Juan J [id number] [facility] 009 Branch 2020-10-30 2020-11-05 Inpatient EM Debi, [facility] [id number] [facility] 16:50:00 13:52:00 Fede 56051 [facility] 2020-10-31 2020-10-31 Outpatient ANNEL Carrera LABO [id number] [facility] 08:22:00 08:22:00 Fede 73 [facility] 2020-10-28 2020-10-28 Hospital Radiology [facility] 1.2.840.114 [id number] Univers 08:30:17 23:59:00 Encounter Sera 350.1.13.10 ity of [place] 4.2.7.2.686 [facility] [place] [id number] [facility] 807 Branch 2020-10-28 2020-10-28 Hospital Radiology [facility] 1.2.840.114 [id number] 08:30:17 23:59:00 Encounter [place] 350.1.13.10 [place] 4.2.7.2.686 [place] [id number] 2020-10-28 2020-10-28 Outpatient R RADIOLOGY [facility] [id number] Univers 00:00:00 00:00:00 ity of [facility] 2020-10-12 2020-10-12 Office [facility] 1.2.840.114 [id number] Univers 14:02:10 14:50:48 Visit Bryan Sera 350.1.13.10 i ty of [place] Profess[place] [phone] Oh dical [facility] 204 [facility] 2020-10-12 2020-10-12 Outpatient R CHANTELLE [facility] [id number] Univers 14:00:00 14:50:[address] [facility] 2020-10-12 2020-10-12 Outpatient [facility] [id number] Univers 14:00:00 14:00:00 [facility] 2020-10-06 2020-10-06 Office [facility] 1.2.840.114 [id number] Univers 10:43:51 11:59:29 Visit Gina Peerz 350.1.13.10 ity [facility] 4.2.7.2.[place] [phone] Oh dical [address] 2020-10-06 2020-10-06 Office [facility] 1.2.840.114 [id number] 10:43:51 11:59:29 Visit Gina Perez 350.1.13.10 [place] 4.2.7.2.686 Professio [phone] [address] 2020-10-06 2020-10-06 Outpatient R IVANA [facility] [id number] Univers 10:30:00 10:30:00 GINA baugh o f [facility] 2020-10-06 2020-10-06 Orders Doctor GARCIA 1.2.840.114 [id number] Univers 00:00:00 00:00:00 Only Unassigned, [place] 350.1.13.10 ity of [place] [facility] 4.2.7.2.686 Juan J as [phone] [address] 2020-09-28 2020-09-28 Emergency [facility] 1.2.840.114 [id number] Univers 17:28:00 21:08:00 Elmerji Anuj Perez 350.1.13.10 ity of [place] 4.2.7.2.686 [facility] [phone] [facility] 084 Branch 2020-09-28 2020-09-28 Transition Latrice French 1.2.840.114 [id number] Univers 00:00:00 00:00:00 of Care Gilda Duque 350.1.13.10 it y of [place] 4.2.7.2.[place] [id number] [facility] 403 Branch 2020-09-23 2020-09-26 [facility] Wayne Can [facility] 1.2.840.1 14 [id number] Univers 13:50:00 18:28:00 Encounter Ambika Fernandez 350.1.13.10 ity of [place] 4.2.7.2.686 [facility] [id number] [place] [id number] [place] 2020-09-23 2020-09-26 Inpatient X GABRIELEALEJANDRA [facility] [id number] Univers 13:50:00 18:28:[address] [facility] 2020-09-22 2020-09-22 Outpatient [facility] [id number] Univers 09:45:00 09:45:00 GINA palacio [facility] 2020-09-10 2020-09-10 Outpatient [facility] [id number] Univers 16:15:00 16:15:[address] [facility] 2020-09-09 2020-09-09 Transition Latrice Aleman 1.2.840.114 [id number] Univers 00:00:00 00:00:00 of Care Rico Duque 350.1.13.10 ity of [place] [id number] [address] 2020-09-08 2020-09-08 Outpatient R [facility] [id number] Univers 08:30:00 08:30:00 GINA palacio [facility] 2020-09-02 2020-09-07 Hospital Jose Guy [facility] 1.2.840.114 [id number] Univers 16:46:00 18:45:00 Encounter Alis Garcia [facility] 350. 1.13.10 ity of [place] 4.2.7.2.686 [place] Kaylyn Calvin Mejia [phone] [address] ([facility]) 2020-08-26 2020-08-26 Office Tha Gunter [facility] 1.2.840.114 [id number] Univers 10:44:06 11:14:06 Visit [facility] 350.1.13.10 it y of [place]2.[place].2.[place] [phone] [address] Office Building 2020-08-26 2020-08-26 Outpatient R THA GUNTER [facility] [id number] Univers 10:30:00 10:30:[address] [facility] 2020-08-25 2020-08-25 Outpatient Tim HEATH [facility] [id number] Univers 10:00:00 10:00:00 GINA palacio [facility] 2020-08-24 2020-08-24 Outpatient R YENI [facility] [id number] Univers 09:00:00 09:00:[address] [facility] 2020-08-21 2020-08-21 Office [facility] 1.2.840.114 [id number] Univers 08:43:52 09:13:46 Visit Gina Perez 350.1.13.10 ity of [place] 4.2.7.2.686 [place] [phone] [place] [address] Branch Building 2020-08-21 2020-08-21 Outpatient Tim HEATH [facility] [id number] Univers 08:30:00 08:30:00 GINA palacio [facility] 2020-08-10 2020-08-14 Inpatient EM ANNEL MontanezCL INTE.02 [id number] [facility] 09:09:00 18:56:00 Johnie Reardon [facility] 2020-08-11 2020-08-11 Outpatient R [facility] [id number] Univers 09:15:00 09:15:00 GINA palacio [facility] 2020-08-07 2020-08-07 Outpatient R [facility] [id number] Univers 10:00:00 10:00:00 GINA palacio [facility] 2020-07-27 2020-08-06 [facility] Jameson Mejia 1.2.840.1 14 [id number] Univers 12:13:00 17:15:00 Encounter Minnie Cardona 350.1.13.10 ity of [facility] 4.2.7.2.686 [place] Drew Noriega [phone] [facility] Johnie Skinner [facility] [address] [place] [address] 2020-07-27 2020-08-06 Inpatient JOHNIE SKINNER [facility] [id number] Univers 12:13:00 17:15:00 ity of [facility] 2020-07-24 2020-07-24 Outpatient R [facility] [id number] Univers 13:00:00 13:00:00 GIAN workman [facility] 2020-07-21 2020-07-21 Transition Latrice Aleman 1.2.840.114 [id number] Univers 00:00:00 00:00:00 of Care Rico Duque 350.1.13.10 ity of [place] 4.2.7.2.686 Noe beckett [phone] [address] 2020-07-10 2020-07-20 [facility] Janeth Leal 1.2.84 0.114 [id number] Univers 19:24:00 21:51:00 Encounter Oc Bryson 350.1.13.10 ity of Janeth Leal [facility] 4.2.7.2.686 [place] Minnie Cardona [phone] Medical Lisa Marroquin [address] 2020-07-17 2020-07-17 Outpatient [facility] [id number] Univers 10:00:00 10:00:[address] [facility] 2020-07-10 2020-07-10 Outpatient R IVANA [facility] [id number] Univers 08:45:00 08:45:00 GINA franciscovashti ji anuj [facility] 2020-06-15 2020-06-15 Telephone [facility] 1.2.638.622 [id number] Univers 00:00:00 00:00:00 Jose Perez 350.1.13.10 i ty of [place]ip [place] 4.2.7.2.686 [place] [facility] [phone] Oh dical nal 204 Branch Building 2020-06-11 2020-06-11 Office [facility] 1.2.840.114 [id number] Univers 13:43:55 13:58:55 Visit Jose Reyes 350.1.13.10 it y of [place] 4.2.7.2.686 [place] - [phone] Med ical [facility] 188 Branch 2020-06-11 2020-06-11 Outpatient R JANKI [facility] [id number] Univers 13:30:00 13:30:[address] [facility] 2020-06-03 2020-06-03 Transition Latrice Aleman 1.2.840.114 [id number] Univers 00:00:00 00:00:00 of Care Rico Duque 350.1.13.10 ity of [place] [phone] [facility] 403 Branch 2020-05-29 2020-06-02 [facility] Jameson Mejia [facility] 1.2.840.1 14 [id number] Univers 09:12:00 16:02:00 Encounter Lizett Gerardo 350.1.13.10 ity of Martha [place] 4.2.7.2.686 [facility] [phone] [facility] 081 Branch 2020-05-29 2020-06-02 Inpatient X JAE [facility] [id number] Univers 09:12:00 16:02:[address] [facility] 2020-05-29 2020-05-29 Outpatient R JANKI [facility] [id number] Univers 10:15:00 10:15:[address] [facility] 2020-04-23 2020-04-23 Office [facility] 1.2.840.114 [id number] Univers 13:48:18 14:03:18 Visit Jose [facility] 350.1.13.10 it y of [place] 4.2.[place].2.686 [place] - [phone] [address] 2020-04-23 2020-04-23 Outpatient [facility] [id number] Univers 13:30:00 13:30:[address] [facility] 2020-04-23 2020-04-23 Orders Doctor JOSE 1.2.840.114 [id number] Univers 00:00:00 00:00:00 Only Unassigned, [place] 350.1.13.10 ity of [place] [facility]OSP[facility] 4.2.7.2.686 Juan J as [phone] [facility] 009 [place] 2020-04-09 2020-04-09 Office [facility] 1.2.840.114 [id number] Univers 13:58:45 14:13:45 Visit Jose [facility] 350.1.13.10 it y of [place]ip [place] 4.2.7.2.686 [facility] s [place] - [phone] [address] 2020-04-09 2020-04-09 Outpatient [facility] [id number] Univers 14:00:00 14:00:[address] [facility] 2020-03-27 2020-03-27 Transition Latrice Aleman 1.2.840.114 [id number] Univers 00:00:00 00:00:00 of Care Rico Duque 350.1.13.10 ity of [place] 4.[place].2.[place] [id number] [facility] 403 Branch 2020-03-15 2020-03-26 Hospital Jameson Mejia 1.2.840.1 14 [id number] Univers 23:48:00 18:02:00 Encounter Kandis Hough 350.1.13.10 ity of Janki [facility] 4.2.7.2.68 6 [place] [id number] [facility] 098 Branch 2020-03-18 2020-03-18 Anesthesia Caio Najera Nnacy 1. 2.840.114 [id number] [facility] 13:52:00 16:42:00 Stephanie Franks [id number] ity of [facility] [id number] [place] [phone] [facility] [address] 2020-02-06 2020-02-06 Transition Claudette Alemantanya 1.2.840.114 [id number] [facility] 00:00:00 00:00:00 of Care Rico Zelayay [id number] [id number] [id number] [facility] [address] 2020-02-03 2020-02-05 Hospital Óscar Hermosillo [facility] 1.2.8 40.114 [id number] [facility] 16:55:00 20:40:00 Encounter Martha Rowe [id number] [id number] [phone] [facility] [address] 2020-01-17 2020-01-17 Outpatient R [facility] [id number] Univers 13:30:00 13:30:00 SENDIL ity of [facility] [place] [facility] 2019-12-02 2019-12-02 Outpatient R [facility] [id number] Univers 15:00:00 15:00:00 ity of [facility] [place] [facility] 2019-11-16 2019-11-21 Hospital Lopez Velazquez [facility] 1.2.840 .114 [id number] Univers 16:35:23 14:12:00 Encounter Heather Hermosillo 350.1.13.1 0 [place] [phone] [place] 541461 Branch 2019-09-17 2019-09-18 [facility] 1.2.764.234 [id number] Univers 20:30:04 00:41:00 Valery Perez 350.1.13.10 [place] [phone] [facility] [address] [place] 2019-09-17 2019-09-18 Emergency X ALFIE [facility] ERT [id number] Univers 20:30:04 00:41:[address] [facility] 2019-09-05 2019-09-05 [facility] [id number] Univers 14:00:00 14:00:[address] [facility] 2019-09-05 2019-09-05 [facility] 1.2.840.114 [id number] Univers 08:17:17 08:47:17 ne Visit Sendil Hannah Perez 350.1.13.10 [place] [phone] Oh dicvt nal [address] [place] [address] 2019-09-05 2019-09-05 Telephone [facility] 1.2.182.497 [id number] Univers 00:00:00 00:00:00 Sendil Hannah Perez 350.1.13.10 [place] [phone] Oh dicvt nal [address] [place] [address] 2019-09-03 2019-09-03 Outpatient R ANNA [facility] [id number] Univers 10:30:00 10:30:[address] [facility] 2019-08-20 2019-08-20 Telephone [facility] 1.2.144.018 [id number] Univers 00:00:00 00:00:00 Nika SHAW 350.1.13.10 [place] [phone] Oh dical [address] [place] 2019-08-19 2019-08-19 Refill Nancy Lee 1.2.840.114 [id number] Univers 00:00:00 00:00:00 Lola Figueroa 350.1.13.10 it y of Hospital 4.2.7.2.686 Juan J as [phone] [facility] [address] [place] 2019-08-16 2019-08-16 Refill Nancy Lee 1.2.840.114 [id number] Univers 00:00:00 00:00:00 Lola Carolina 350.1.13.10 it y of [facility] 4.2.7.2.686 Juan J as [phone] [facility] 090 [address] 2019-08-15 2019-08-[address] [facility] 1.2.840.114 [id number] Univers 11:58:21 15:28:00 Demarcus Perez 350.1.13.10 i [place] [phone] [facility] 084 [address] 2019-08-15 2019-08-15 Emergency [facility] [id number] Univers 11:58:21 15:28:[address] [facility] 2019-08-15 2019-08-15 Case JOSE Castillo 1.2.840.114 [id number] Univers 00:00:00 00:00:00 Management Ninfa FIGUEROA 350.1.13.10 ity [facility] 4.2.7.2.686 Juan J as [phone] [facility] 008 Branch 2019-08-15 2019-08-15 Telephone Anna [facility] 1.2.502.753 [id number] Univers 00:00:00 00:00:00 Ninfa Perez 350.1.13.10 [place] [facility] [phone] [facility] 059 [facility] 2019-08-12 2019-08-12 Transition Latrice Ramirez 1.2.840.114 [id number] Univers 00:00:00 00:00:00 of Care Joan Duque 350.1.13.10 [place] [phone] [facility] 403 [address] 2019-08-06 2019-08-09 Emergency Wayne Can [facility] 1.2.840. 114 [id number] Univers 14:06:47 15:19:00 Lizett Gerardo 350.1.13.10 [place] [phone] [facility] 081 [address] 2019-08-06 2019-08-09 Outpatient X BRETT [facility] [id number] Univers 14:06:47 15:19:00 LIZETT ity of [facility] [place] [facility] 2019-08-06 2019-08-06 Outpatient R TRAVIS, [facility] [id number] Univers 13:30:00 13:30:00 RICHMOND ity o f [facility] [place] [facility] 2019-08-06 2019-08-06 Outpatient R TRAVIS, [facility] [id number] Univers 11:00:00 11:00:00 RICHMOND ity o f [facility] [place] [facility] 2019-08-06 2019-08-06 Outpatient R TRAVIS, [facility] [id number] Univers 11:00:00 11:00:00 JUNIEJULIANN baugh o f [facility] [place] [facility] 2019-08-06 2019-08-06 Orders Doctor JOSE 1.2.840.114 [id number] Univers 00:00:00 00:00:00 Only Unassigned, [place] 350.1.13.10 ity of [facility] 4.2.7.2.686 Juan J as [phone] [facility] 009 [address] 2019-07-19 2019-07-19 Transition Latrice French 1.2.840.114 [id number] Univers 00:00:00 00:00:00 of Care Gilda Duque 350.1.13.10 [place] [phone] [facility] 403 [address] 2019-07-17 2019-07-18 Emergency Valery Carrillo 1.2.840 .114 [id number] Univers 21:36:10 21:05:00 Abu-Josy Tareq [facility] 350.1.13.1 0 ity of Hospital 4.2.7.2.686 Juan J as [phone] [facility] 090 [address] 2019-07-17 2019-07-18 Outpatient X ABU-JOSY, TAREQ [facility] [id number] Univers 21:36:10 21:05:00 ABU-JOSY, TAREQ ity of [facility] [place] [facility] 2019-07-03 2019-07-03 Transition Latrice French 1.2.840.114 [id number] Univers 00:00:00 00:00:00 of Care Gilda Duque 350.1.13.10 [place] [phone] [address] 2019-07-01 2019-07-01 Transition Latrice French 1.2.840.114 [id number] Univers 00:00:00 00:00:00 of Care Gilda Duque 350.1.13.10 [place] [phone] [facility] [address] [place] 2019-06-27 2019-06-27 Transition Latrice French 1.2.840.114 [id number] Univers 00:00:00 00:00:00 of Care Gilda Duque 350.1.13.10 [place] [phone] [facility] [address] [place] 2019-06-24 2019-06-26 [facility] [id number] Univers 14:51:01 18:37:[address] [facility] 2019-06-24 2019-06-26 Hospital Janeth Leal 1.2.84 0.114 [id number] Univers 14:51:01 18:37:00 Encounter Michael Shirley 350.1.1 3.10 ity of [facility] 4.2.7.2.686 Juan J as [phone] [facility] 090 [address] 2019-02-06 2019-02-06 Telephone JOSE Bhatt 1.2.840.114 [id number] Univers 00:00:00 00:00:00 Cortney FIGUEROA 350.1.13.10 i ty of [facility] 4.2.7.2.686 Juan J as [phone] [facility] 008 [address] 2019-02-05 2019-02-05 Emergency [facility] 1.2.674.591 [id number] Univers 17:30:29 21:52:00 Jyoti Perez 350.1.13.10 [place] [phone] [place] 541464 Branch 2019-01-30 2019-01-30 Transition Claudette Quevedotanya 1.2.840.114 [id number] Univers 00:00:00 00:00:00 of Care Rhonda Duque 350.1.13.10 [place] [phone] [facility] 403 [address] 2019-01-24 2019-01-29 [facility] Wayne Can 1.2.840.1 14 [id number] Univers 16:01:37 14:55:00 Encounter Dennis Finley 350.1.13.10 ity [facility] 4.2.7.2.686 [place] J as [phone] [place] 541469 Branch 2019-01-22 2019-01-22 Transition EmyClaudettetanya 1.2.840.114 [id number] Univers 00:00:00 00:00:00 of Care Rhonda Duque 350.1.13.10 [place] [phone] [facility] 403 [address] 2019-01-16 2019-01-19 [facility] Carlos Allen 1.2.840.11 [id number] Univers 23:52:03 14:36:00 Encounter Martha Rowe 350.1.13.10 ity of [place], [facility] 4.2.7.2.686 [place] [phone] [place] [address] Branch 2017-10-23 2017-10-27 Discharged 1 BROOKE [facility] [id number] 17:29:00 16:54:00 Inpatient ALEXIS 90 Luke s Patient [facility] 2017-04-03 2017-04-04 [id number] 23:17:00 03:53:00 Emergency LAIRD 56 Luke s Room Patient [facility] 2017-03-05 2017-03-09 Discharged ER PHILIP [facility] [id number] 06:54:00 10:58:00 Inpatient NICHELLE 44 Luke s (obs) [facility] 2017-01-04 2017-01-05 Discharged [facility] [id number] 10:33:00 18:56:00 Inpatient 61 Favio s (obs) [facility] Orders Doctor JOSE 1.2.840.114 [id number] Univers 00:00:00 00:00:00 Only Unassigned, [place] 350.1.13.10 ity of [place] [facility] 4.2.7.2.686 Juan J as [phone] Medi uriel 009 Branch Results Test Description Test Time Test Comments Results Result Comments Source Transthoracic echo (TTE) 2022-02-10 17:43:07 Test Item Value Reference Range Interpretation Comme nts Height (test code = 7830752975) in Weight (test code = 6736392398) lbs Systolic BP (test code = 3853171714) mmHg Diastolic BP (test code = 7412395179) mmHg Heart Rate (test code = 2174160092) bpm BSA (test code = 8320693187) 1.86 m2 Ao root diam (test code = 3531822079) 3.10 cm Aortic root (test code = 5970956157) 3.1 cm Ao root annulus (test code = 3.1 cm 4244460632) LVOT diameter (test code = 1.83 cm 7582618442) LVOT area (test code = 5244543386) 2.60 cm2 LVIDD (test code = 2877129198) 4.80 cm Left Ventricular End Diastolic Volume 107.5 mL by Teichholz Method (test code = 8765990) IVS (test code = 3375490691) 1.35 cm Interventricular Septum Diastolic 1.35 cm Thickness by 2D (test code = 0781898) LVPWD (test code = 6547082650) 1.35 cm PW (test code = 6554339666) 1.35 cm 0.6-1.1 EF(Teich) (test code = 6223626017) 30.10 % LVIDS (test code = 3994715891) 4.10 cm Left Ventricular End Systolic Volume 75.1 mL by Teichholz Method (test code = 0915776) FS (test code = 1920791770) 14 % EF - 2D (test code = 70962887) 30.10 % LA size (test code = 3647464317) 4.1 cm TR Peak Haile (test code = 2029425466) 232.4 cm/s Triscuspid Valve Regurgitation Peak mmHg Gradient (test code = 5100614080) LAV(MOD-sp4) (test code = 7870146095) 103.10 mL E wave decelartion time (test code = 0.15 s 5785012083) MV stenosis pressure 1/2 time (test 44.6 ms code = 5139040275) MV Peak E Haile (test code = 110.2 cm/s 7553539206) MV Peak A Haile (test code = 28.7 cm/s 2125034028) E/A ratio (test code = 0306848178) ratio MR max PG (test code = 2509065515) 78.70 mm[Hg] MR max haile (test code = 7855273254) 443.40 cm/s Mr max haile (test code = 0728578348) 443.4 m/s MV Prop V (test code = 2971716986) 45.00 cm/s MV E/e' septal (test code = 9.2 cm/s 5178693239) Tapse (test code = 9473231487) 1.53 cm LVOT stroke volume (test code = 41.70 cm3 6981526068) LVOT peak haile (test code = 87.2 cm/s 3267036175) LVOT mn grad (test code = 9207204654) mmHg AV LVOT peak gradient (test code = mmHg 5352840661) LVOT peak VTI (test code = 15.8 cm 0005568155) LV V1 mean (test code = 4746663176) 51.30 cm/s Aortic valve mean velocity (test code 78.3 cm/s = 3265441507) Ao peak haile (test code = 5255394345) 111.8 cm/s Ao VTI (test code = 6667011141) 21.5 cm AV area by cont VTI (test code = 1.9 cm2 0405826688) AV area peak haile (test code = 2.1 cm2 5517637060) Ao max PG (test code = 3769300909) 5.00 mm[Hg] AV peak gradient (test code = mmHg 9412516480) AV valve area (test code = 1.94 cm2 5700544605) AV mean gradient (test code = mmHg 5181156128) Radiology Study observation (narrative) (test code = 19496-8) DIANE (test code = DIANE) Table formatting [...] lateral and apex.All other segments are normal. [id number] 12:01:08 Test Item Value Reference Interpretation Comments Range TROPONIN I (test 0.021 ng/mL See_Comment [Automated code = 9094422832) message] The system which generated this result [...] biotin. Lab Interpretation Normal (test code = 47266-9) [facility] 11:50:23 Test Item Value Reference Range Interpretation Comments MAGNESIUM (test code = 5378687339) 1.7 mg/dL 1.7-2.4 Lab Interpretation (test code = Normal 55576-7) [facility] (58625)2022-02-10 11:50:22 Test Item Value Reference Range Interpretation Comments NA (test code = 138 mmol/L 135-145 5330648502) K (test code = 3.9 mmol/L 3.5-5 5949989944) CL (test code = 108 mmol/L 98-108 4927294286) CO2 TOTAL (test code = 24 mmol/L 23-31 5720372859) AGAP (test code = 2-16 8249808158) BUN (test code = 19 mg/dL 7-23 6118167323) GLUCOSE (test code = 117 mg/dL 70-110 H 1249979042) CREATININE (test code = 0.91 mg/dL 0.6-1.25 7313874796) TOTAL BILI (test code = 1.0 mg/dL 0.1-1.1 7028770462) CALCIUM (test code = 8.5 mg/dL 8.6-10.6 L 0031138309) T PROTEIN (test code = 6.4 g/dL 6.3-8.2 5830952266) ALBUMIN (test code = 3.4 g/dL 3.5-5 L 6804279534) ALK PHOS (test code = 177 U/L 34-122 H 0794272982) ALTv (test code = 24 U/L 5-50 1742-6) AST(SGOT) (test code = 38 U/L 13-40 0628317032) eGFR (test code = mL/min/1.73m2 1005464921) DIANE (test code = DIANE) Association of [...] tests). Lab Interpretation Abnormal (test code = 42467-2) [facility] 11:50:22 Test Item Value Reference Range Interpretation Comments PHOSPHORUS (test code = 8213158843) 5.1 mg/dL 2.5-5 H Lab Interpretation (test code = Abnormal 88215-5) [facility] WITH [id number] 11:19:02 Test Item Value Reference Range Interpretation [...] RDW-SD (test code = 48.0 fL 38.5-51.6 20948-4) RDW-CV (test code = 14.2 % 12.1-15.4 788-0) PLT (test code = See_Comment [Automated 777-3) message] The sy stem which generated this result transmitted reference range : 150 - 328 10*3/ ?L. The reference r batsheva was not used to interpret this result as normal/abnormal . MPV (test code = 10.2 fL 9.8-13 38819-5) NRBC/100 WBC (test See_Comment [Automat ed code = 1396127269) message] The system which generated this result transmitted reference range : 0.0 - 10.0 /100 WBCs. The refer ence range was not u sed to interpret th is result as normal/abnormal . NRBC x10^3 (test code See_Comment [Auto mated = 9262174388) message] The s ystem which generated this result transmitted reference range : 10*3/?L. The reference range was not used to interpret this result as normal/abnormal . GRAN MAT (NEUT) % 68.5 % (test code = 770-8) IMM GRAN % (test code 0.40 % = 3153857678) LYMPH % (test code = 19.0 % 736-9) MONO % (test code = 8.3 % 5905-5) EOS % (test code = 3.4 % 713-8) BASO % (test code = 0.4 % 706-2) GRAN MAT x10^3(ANC) 3.65 10*3/uL 1.99-6.95 (test code = 2121503532) IMM GRAN x10^3 (test 0-0.06 code = 4905591055) LYMPH x10^3 (test code 1.01 10*3/uL 1.09-3.23 L = 731-0) MONO x10^3 (test code 0.44 10*3/uL 0.36-1.02 = 742-7) EOS x10^3 (test code = 0.18 10*3/uL 0.06-0.53 711-2) BASO x10^3 (test code 0.01-0.09 = 704-7) Lab Interpretation Abnormal (test code = 24376-7) [facility] (BNP)2022-01-30 23:33:12 Test Item Value Reference Range Interpretation Comments BNP (test code = 27572-2) 443 pg/mL 0-100 H DIANE (test code = DIANE) Ccu Nurse ID - ADRY Lab Interpretation (test Abnormal code = 30568-1) [facility] UCLAB-type Natriuretic Factor (BNP)2022-01-30 23:33:12 Test Item Value Reference Range Interpretation Comments BNP (test code = 14245-5) 443 pg/mL 0-100 H DIANE (test code = DIANE) Ccu Nurse ID - ADRY Lab Interpretation (test Abnormal code = 57085-6) [facility] UCLAB-type Natriuretic Factor (BNP)2022-01-30 23:33:12 Test Item Value Reference Range Interpretation Comments BNP (test code = 17427-8) 443 pg/mL 0-100 H DIANE (test code = DIANE) Ccu Nurse ID - ADRY Lab Interpretation (test Abnormal code = 21527-5) [facility] UCLAB-type Natriuretic Factor (BNP)2022-01-30 23:33:12 Test Item Value Reference Range Interpretation Comments BNP (test code = 28742-9) 443 pg/mL 0-100 H DIANE (test code = DIANE) Ccu Nurse ID - ADRY Lab Interpretation (test Abnormal code = 92007-9) [facility] UCLAB-type Natriuretic Factor (BNP)2022-01-30 23:33:12 Test Item Value Reference Range Interpretation Comments BNP (test code = 67550-6) 443 pg/mL 0-100 H DIANE (test code = DIANE) Ccu Nurse ID - ADRY Lab Interpretation (test Abnormal code = 12608-7) [facility] UCLAB-type Natriuretic Factor (BNP)2022-01-30 23:33:12 Test Item Value Reference Range Interpretation Comments BNP (test code = 56407-5) 443 pg/mL 0-100 H DIANE (test code = DIANE) Ccu Nurse ID - ADRY Lab Interpretation (test Abnormal code = 20347-3) [facility] UCLAB-TYPE NATRIURETIC FACTOR (BNP)2022-01-30 23:33:12 Test Item Value Reference Range Interpretation Comments B-TYPE NATRIURETIC PEPTIDE (BEAKER) 443 pg/mL 0-100 H (test code = 700) Ccu Nurse ID - GEORGIANAJUANITON [id number] 20:57:59 Test Item Value Reference Interpretation Comments Range TROPONIN I (test 0.017 ng/mL See_Comment [Automated code = 6870512275) message] The system which generated this result [...] biotin. Lab Interpretation Normal (test code = 73739-1) [facility]AL [id number] 20:54:59 Test Item Value Reference Range Interpretation Comments NT-proBNP (test code 6490 pg/mL See_Comment H [Autom ated = 5876348415) message] The system which generated this result transmitted reference range : <=125. The reference range was not used to interpret this result as normal/abnormal . DIANE (test code = DIANE) Biotin has been reported to cause a negative bias, interpret results relative to patient's use of biotin. Lab Interpretation Abnormal (test code = 63687-5) [facility] 20:46:35 Test Item Value Reference Range Interpretation Comments MAGNESIUM (test code = 9460130496) 1.5 mg/dL 1.7-2.4 L Lab Interpretation (test code = Abnormal 20000-6) [facility] (77002)2021-11-09 20:46:34 Test Item Value Reference Range Interpretation Comments NA (test code = 140 mmol/L 135-145 0252301170) K (test code = 3.9 mmol/L 3.5-5.0 5037977876) CL (test code = 111 mmol/L 98-108 H 9715196768) CO2 TOTAL (test code = 16 mmol/L 23-31 L 0826874161) AGAP (test code = 2-16 4190848763) BUN (test code = 14 mg/dL 7-23 8669849173) GLUCOSE (test code = 189 mg/dL 70-110 H 6271636861) CREATININE (test code = 0.66 mg/dL 0.60-1.25 1335095614) TOTAL BILI (test code = 0.8 mg/dL 0.1-1.4 4804829690) CALCIUM (test code = 8.3 mg/dL 8.6-10.6 L 2288787238) T PROTEIN (test code = 6.5 g/dL 6.3-8.2 8172047062) ALBUMIN (test code = 3.3 g/dL 3.5-5.0 L 9656797578) ALK PHOS (test code = 136 U/L 34-122 H 2287784017) ALTv (test code = 18 U/L 5-50 1742-6) AST(SGOT) (test code = 26 U/L 13-40 5834039677) eGFR (test code = mL/min/1.73m2 3781741742) DIANE (test code = DIANE) Association of [...] tests). Lab Interpretation Abnormal (test code = 48133-9) [facility] WITH [id number] 20:33:30 Test Item Value Reference Range Interpretation Comments WBC (test code = See_Comment [Automated 4343-2) message] The sy stem which generated this result transmitted reference range : 4.20 - 10.70 10*3/?L. The reference range was not used to interpret this result as normal/abnormal . RBC (test code = See_Comment [Automated 962-2) message] The sy stem which generated this [...] RDW-SD (test code = 45.4 fL 38.5-51.6 90808-7) RDW-CV (test code = 14.2 % 12.1-15.4 788-0) PLT (test code = See_Comment [Automated 777-3) message] The sy stem which generated this result transmitted reference range : 150 - 328 10*3/ ?L. The reference r batsheva was not used to interpret this result as normal/abnormal . MPV (test code = 9.8 fL 9.8-13.0 52514-9) NRBC/100 WBC (test See_Comment [Automat ed code = 6198145541) message] The system which generated this result transmitted reference range : 0.0 - 10.0 /100 WBCs. The refer ence range was not u sed to interpret th is result as normal/abnormal . NRBC x10^3 (test code <0.01 See_Comment [Auto mated = 8032323055) message] The s ystem which generated this result transmitted reference range : 10*3/?L. The reference range was not used to interpret this result as normal/abnormal . GRAN MAT (NEUT) % 62.3 % (test code = 770-8) IMM GRAN % (test code 0.80 % = 0336729858) LYMPH % (test code = 25.1 % 736-9) MONO % (test code = 6.7 % 5905-5) EOS % (test code = 4.7 % 713-8) BASO % (test code = 0.4 % 706-2) GRAN MAT x10^3(ANC) 4.76 10*3/uL 1.99-6.95 (test code = 5569185361) IMM GRAN x10^3 (test 0.06 10*3/uL 0.00-0.06 code = 1252129136) LYMPH x10^3 (test code 1.92 10*3/uL 1.09-3.23 = 731-0) MONO x10^3 (test code 0.51 10*3/uL 0.36-1.02 = 742-7) EOS x10^3 (test code = 0.36 10*3/uL 0.06-0.53 711-2) BASO x10^3 (test code 0.03 10*3/uL 0.01-0.09 = 704-7) Lab Interpretation Abnormal (test code = 87378-1) [facility]2021-11-09 20:27:39 Test Item Value Reference Range Interpretation Comments POCT GLU (test code = 1626085726) 190 mg/dL 70-110 H Lab Interpretation (test code = Abnormal 04513-9) [facility] [id number] 11:52:00 Test Item Value Reference Range Interpretation Comments GLUCOSE BEDSIDE TESTING (test code = 92 mg/dL 70-110 N GLUBED) GLUCOSE BEDSIDE [id number] 08:05:00 Test Item Value Reference Range Interpretation Comments GLUCOSE BEDSIDE TESTING (test code = 62 mg/dL 70-110 L GLUBED) GLUCOSE BEDSIDE [id number] 20:40:00 Test Item Value Reference Range Interpretation Comments GLUCOSE BEDSIDE TESTING (test code 105 mg/dL 70-110 N = GLUBED) GLUCOSE BEDSIDE [id number] 17:02:00 Test Item Value Reference Range Interpretation Comments GLUCOSE BEDSIDE TESTING (test code 128 mg/dL 70-110 H = GLUBED) GLUCOSE BEDSIDE [id number] 16:37:00 Test Item Value Reference Range Interpretation Comments GLUCOSE BEDSIDE TESTING (test code 105 mg/dL 70-110 N = GLUBED) GLUCOSE BEDSIDE [id number] 08:17:00 Test Item Value Reference Range Interpretation Comments GLUCOSE BEDSIDE TESTING (test code = 88 mg/dL 70-110 N GLUBED) GLUCOSE BEDSIDE [id number] 19:45:00 Test Item Value Reference Range Interpretation Comments GLUCOSE BEDSIDE TESTING (test code 115 mg/dL 70-110 H = GLUBED) GLUCOSE BEDSIDE [id number] 18:13:00 Test Item Value Reference Range Interpretation Comments GLUCOSE BEDSIDE TESTING (test code = 74 mg/dL 70-110 N GLUBED) GLUCOSE BEDSIDE [id number] 17:29:00 Test Item Value Reference Range Interpretation Comments GLUCOSE BEDSIDE TESTING (test code = 44 mg/dL 70-110 LL GLUBED) GLUCOSE BEDSIDE [id number] 12:26:00 Test Item Value Reference Range Interpretation Comments GLUCOSE BEDSIDE TESTING (test code = 96 mg/dL 70-110 N GLUBED) GLUCOSE BEDSIDE [id number] 08:21:00 Test Item Value Reference Range Interpretation Comments GLUCOSE BEDSIDE TESTING (test code = 77 mg/dL 70-110 N GLUBED) GLUCOSE BEDSIDE [id number] 20:12:00 Test Item Value Reference Range Interpretation Comments GLUCOSE BEDSIDE TESTING (test code = 91 mg/dL 70-110 N GLUBED) GLUCOSE BEDSIDE [id number] 16:42:00 Test Item Value Reference Range Interpretation Comments GLUCOSE BEDSIDE TESTING (test code 106 mg/dL 70-110 N = GLUBED) GLUCOSE BEDSIDE [id number] 11:49:00 Test Item Value Reference Range Interpretation Comments GLUCOSE BEDSIDE TESTING (test code = 89 mg/dL 70-110 N GLUBED) GLUCOSE BEDSIDE [id number] 08:22:00 Test Item Value Reference Range Interpretation Comments GLUCOSE BEDSIDE TESTING (test code = 68 mg/dL 70-110 L GLUBED) GLUCOSE BEDSIDE [id number] 20:05:00 Test Item Value Reference Range Interpretation Comments GLUCOSE BEDSIDE TESTING (test code 137 mg/dL 70-110 H = GLUBED) GLUCOSE BEDSIDE [id number] 16:42:00 Test Item Value Reference Range Interpretation Comments GLUCOSE BEDSIDE TESTING (test code = 98 mg/dL 70-110 N GLUBED) GLUCOSE BEDSIDE [id number] 11:13:00 Test Item Value Reference Range Interpretation Comments GLUCOSE BEDSIDE TESTING (test code 118 mg/dL 70-110 H = GLUBED) GLUCOSE BEDSIDE [id number] 07:37:00 Test Item Value Reference Range Interpretation Comments GLUCOSE BEDSIDE TESTING (test code 140 mg/dL 70-110 H = GLUBED) COMPREHENSIVE METABOLIC [id number] 06:34:00 Test Item Value Reference Range Interpretation [...] TOTAL (test code = ALKP) CBC W/AUTO [id number] 06:25:00 Test Item Value Reference Range Interpretation [...] DIFF/SCN CRITERIA = MDIFF) - CT ABDOMEN [id number] 03:09:00 [facility]: FAITH VANCE : 1960 Sex: M Name: FAITH VANCE [facility] : 1960 Age/S: 60 / M [id number] Unit #: [id number] Loc: [place] [address] Phys: Fede aCrrera DO Acct: [id number] Dis Date: Status: ADM IN PHONE #: [phone] Exam Date: 10/31/20201919 FAX #: Reason: NAUSEA, VOMITING, DIARRHEA EXAMS: CPT: [id number] CT ABDOMEN W/CONTRAST [id number] EXAM: - CT ABDOMEN W/CONTRAST LOCATION: [id number] [...] VANCE : 1960 Age/S: 60 / M [address] Unit #: [id number] Loc: [place] [address] Phys: Fede Carrera DO Acct: [id number] Dis Date: Status: ADM IN PHONE #: [phone] Exam Date: 10/31/20201919 FAX #: Reason: NAUSEA, VOMITING, DIARRHEA EXAMS: CPT: [id number] CT ABDOMEN W/CONTRAST 26884 <Continued> small bowel wall thickening. The appendix [...] fusion bone masses. IMPRESSION: 1. No acute findingsin the abdomen. No small bowel obstruction or colonic obstruction. 2. Moderate bilateral pleural effusions. at 0309 Reported and signed by:Carmen Encarnacion M.D. CC: Nika Martin MD; Fede Carrera DO Technologist:RT Rohan(R) CTDI: DLP: Trnscb Date/Time: 11/01/2020 (308) t.SDR.TH15 Orig Print D/T: S: 11/01/2020 (311) PAGE 2 Signed ReportGLUCOSE BEDSIDE [id number] 21:34:00 Test Item Value Reference Range Interpretation Comments GLUCOSE BEDSIDE TESTING (test code 161 mg/dL 70-110 H = GLUBED) GLUCOSE BEDSIDE [id number] 17:32:00 Test Item Value Reference Range Interpretation Comments GLUCOSE BEDSIDE TESTING (test code 136 mg/dL 70-110 H = GLUBED) - XR ABDOMEN 1 [id number] 12:44:[address] : 1960 Sex: M Name: FAITH VANCE [facility] : 1960 Age/S: 60 / M [address] Unit #: [id number] Loc: [place] [address] Phys: Fede Carrera DO Acct: [id number] Dis Date: Status: ADM IN PHONE #: [phone] Exam Date: 10/31/2020 1227 FAX #: Reason: Abdominal pain in the lower qudarants EXAMS: C PT: [id number] XR ABDOMEN 1 V 58839 Fluoro Time: DAP (Gy m2): Air Kerma [...] few small bowel loops. Overall nonspecific appearance. [id number] Reported and signed by: Ananth Schmidt M.D. CC: Nika Martin MD; Fede Carrera DO PAGE 1 Signed Report Name: FAITH VANCE [facility] : 1960 Age/S: 60 / M [address] Unit #: [id number] Loc: [place] [address] Phys: Fede Carrera DO Acct: [id number] Dis Date: Status: ADM IN PHONE #: [phone] Exam Date: 10/31/2020 1227 FAX #: Reason: Abdominal pain in the lower qudarants EXAMS: CPT: [id number] XR ABDOMEN 1 V 08991 Fluoro Time: DAP (Gy m2): Air Kerma (mGy): <Continued> Technologist: Cecelia Arias RT(R) Trnscb Date/Time: 10/31/2020 (3364) Lorena Orig Print D/T: S: 10/31/2020 (8630) PAGE 2 Signed Report GLUCOSE BEDSIDE [id number] 11:58:00 Test Item Value Reference Range Interpretation Comments GLUCOSE BEDSIDE TESTING (test code 105 mg/dL 70-110 N = GLUBED) GLUCOSE BEDSIDE [id number] 08:01:00 Test Item Value Reference Range Interpretation Comments GLUCOSE BEDSIDE TESTING (test code 106 mg/dL 70-110 N = GLUBED) [id number] 22:46:00 Test Item Value Reference Range Interpretation [...] yby method. Completed by Nursing: NOGLUCOSE BEDSIDE [id number] 21:55:00 Test Item Value Reference Range Interpretation Comments GLUCOSE BEDSIDE TESTING (test code 119 mg/dL 70-110 H = GLUBED) [id number] 19:33:00 Test Item Value Reference Range Interpretation [...] method. Completed by Nursing: NOCoronavirus 2019 nCoV Qexrwlh1903-37-78 18:46:00 Test Item Value Reference Range Interpretation Comments Coronavirus 2019 nCoV Negative Negative Per ma nufacturer, Bedside (test code = negativ e results should CEVLY06UVSEV) be treated aspresumptive a nd, if inconsistent [...] with COVID-19. Spec Comments: NNT PRO-BRAIN NATRIURETIC [id number] 15:51:00 Test Item Value Reference Range Interpretation Comments NT PRO-BRAIN NATRIURETIC PEPTI 6079 PG/ML 0-100 H (test code = PROBNP) Completed by Nursing: [id number] 15:51:00 Test Item Value Reference Range Interpretation [...] yby method. Completed by Nursing: NOBASIC METABOLIC [id number] 15:51:00 Test Item Value Reference Range Interpretation [...] Completed by Nursing: NO- XR CHEST 1 [id number] 15:42:[address] [address] : 1960 Sex: M Name: FAITH VANCE [facility] : 1960 Age/S: 60 / M [address] Unit #: [id number] Loc: [place] [address] Phys: Todd Jacobo MD Acct: [id number] Dis Date: Status: PRE ER PHONE #: [phone] Exam Date: 10/30/2020 1522 FAX #: Reason: chest pain EXAMS: CPT: [id number] XR CHEST 1 V 21853 Fluoro Time: DAP (Gy m2): Air Kerma [...] PAGE 1 Signed Report Name: FAITH VANCE [facility] Cristofer : 1960 Age/S: 60 / M [address] Unit #: [id number] Loc: [place] [address] Phys: Todd Jacobo MD Acct: [id number] Dis Date: Status: PRE ER PHONE #: [phone] Exam Date: 10/30/2020 1524 FAX #: Reason: chest pain EXAMS: CPT: [id number] XR CHEST 1 V 19496 Fluoro Time: DAP (Gy m2): Air Kerma (mGy): <Continued> T echnologist: Kim Andrews, RT(R)(CT) Trnscb Date/Time: 10/30/2020 (1542) t.KATHRYNR.RB24 Orig Print D/T: S: 10/30/2020 (4891) PAGE 2 Signed ReportCBC W/O DIFF 2020-10-30 [...] 9.70 fL 7.0-9.6 H MPV) BASIC METABOLIC [id number] 21:42:00 Test Item Value Reference Range Interpretation [...] 9.6 mg/dL 8.0-10.5 N CA) HEPATIC FUNCTION [id number] 21:42:00 Test Item Value Reference Range Interpretation [...] 114 IUnit/L 20-125 N code = ALKP) [id number] 21:42:00 Test Item Value Reference Range Interpretation Comments LIPASE (test code = LIP) 70 U/L 13-57 H [id number] 21:42:00 Test Item Value Reference Range Interpretation [...] by method. UA RFLX MICR CULT IF [id number] 21:37:00 Test Item Value Reference Range Interpretation [...] INDWELLING CATH (CEDENO)Cath Status: Under 72 hoursPROTHROMBIN [id number] 21:35:00 Test Item Value Reference Range Interpretation [...] (to prevent recurrent infar ct). THROMBOPLASTIN TIME [id number] 21:35:00 Test Item Value Reference Range Interpretation Comments THROMBOPLASTIN TIME 41.7 Seconds 25.0-39.5 H Therape utic Range: PARTIAL (test code = 50.4 - 88.3 Seconds PTT) Effective 09/04/2018 CBC W/AUTO [id number] 21:29:00 Test Item Value Reference Range Interpretation [...] = MDIFF) - CT ABD PELVIS W/O [id number] 20:49:00 [facility] 1960 Sex: M Name: FAITH VANCE [facility] Alta : 1960 Age/S: 60 / M [address] [place] [address] Bl Unit #: [id number] Loc: [place] [address] Phys: Gisel Eugene Supriya WELD FITTER Acct: [id number] Dis Date: Status: REG ER PHONE #: [phone] Exam Date: 08/23/20202024 FAX #: [phone] Reason: DIFFUSE ABDOMINAL PAIN EXAMS: CPT CODE: [id number] CT ABD PELVIS W/O CONT 69749 Clinical indication: Diffuse abdominal pain. Contrast - [...] 1 Signed Report (CONTINUED) Name: FAITH VANCE [facility] Jonn Mejia : 1960 Age/S: 60 / M [address] [place] [address] Unit #: [id number] Loc: [place] [address] Phys: Gisel Eugene Acct: [id number] Dis Date: Status: REG ER PHONE #: [phone] Exam Date: 08/23/20202024 FAX #: [phone] Reason: DIFFUSE ABDOMINAL PAINEXAMS: CPT CODE: [id number] CT ABD PELVIS W/O CONT 49148 <Continued> Peritoneum/Other: No extraluminal air. 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 [facility] BASIC METABOLIC [id number] 08:00:00 Test Item Value Reference Range Interpretation [...] 9.9 mg/dL 8.0-10.5 N CA) CBC W/AUTO [id number] 07:08:00 Test Item Value Reference Range Interpretation [...] DIFF REQUIRED (test code NO = MDIFF) [id number] 05:21:00 Test Item Value Reference Range Interpretation Comments GLUBED (test code = 150 MG/DL 70-110 H Performe d by certified GLUBED) 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 [facility] [id number] 21:13:00 Test Item Value Reference Range Interpretation Comments GLUBED (test code = 129 MG/DL 70-110 H Performe d by certified GLUBED) 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 [facility] [id number] 16:48:00 Test Item Value Reference Range Interpretation Comments GLUBED (test code = 116 MG/DL 70-110 H Performe d by certified GLUBED) 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 [facility] [id number] 12:18:00 Test Item Value Reference Range Interpretation Comments GLUBED (test code = 136 MG/DL 70-110 H Performe d by certified GLUBED) 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 [facility] [id number] 12:18:00 Test Item Value Reference Range Interpretation Comments GLUBED (test code = 151 MG/DL 70-110 H Performe d by certified GLUBED) 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 [facility] CBC W/AUTO [id number] 07:32:00 Test Item Value Reference Range Interpretation [...] (test code NO = MDIFF) BASIC METABOLIC [id number] 07:29:00 Test Item Value Reference Range Interpretation [...] code = 9.0 mg/dL 8.0-10.5 N CA) [id number] 05:19:00 Test Item Value Reference Range Interpretation Comments GLUBED (test code = 135 MG/DL 70-110 H Performe d by certified GLUBED) 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 [facility] [id number] 20:31:00 Test Item Value Reference Range Interpretation Comments GLUBED (test code = 189 MG/DL 70-110 H Performe d by certified GLUBED) 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 [facility] [id number] 17:41:00 Test Item Value Reference Range Interpretation Comments GLUBED (test code = 140 MG/DL 70-110 H Performe d by certified GLUBED) 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 [facility] - CTA CHEST FOR [id number] 13:48:00 [facility] 1960 Sex: M Name: FAITH VANCE [facility] : 1960 Age/S: 60 / M [address] [place] [address] Blvd Unit #: [id number] Loc: [place] [address] Phys: Gina Gonzalez PHONE TRIAGE SPECIALIST Acct: [id number] Dis Date: Status: ADM IN PHONE #: [phone] Exam Date: 08/12/2020 09 FAX #: [phone] Reason: CP, elevated D-dimer EXAMS: CPT CODE: [id number] [place] [address] PROCEDURE: CTA CHEST INDICATION: CP, elevated D-dimer; [...] 1 Signed Report (CONTINUED) Name: FAITH VANCE [facility] : 1960 Age/S: 60 / M [address] [place] [address] Blvd Unit #: [id number] Loc: [place] [address] Phys: Gina Gonzalez NP Acct: [id number] Dis Date: Status: ADM IN PHONE #: [phone] Exam Date: 08/12/2020911 FAX #: [phone] Reason: CP, elevated D-dimer EXAMS: CPT CODE: [id number] [place] [address] <Continued> contrastenhancement. No acute abnormality demonstrated. MUSCULOSKELETAL: Healed median sternotomy. No acute skeletal abnormality. IMPRESSION: 1. Negative for pulmonary embolic disease within limitations noted. 2. Atherosclerosis. 3. Coronary arterial calcifications with prior coronary arterial stents and CABG. 4. Interstitial edema. No consolidation. 5. Small bilateral pleural effusions. SL: [id number] at 1348 Reported and signed by:Christiano Piña M.D. 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 [facility] CBC W/AUTO [id number] 09:17:00 Test Item Value Reference Range Interpretation [...] (test code NO = MDIFF) BASIC METABOLIC [id number] 08:28:00 Test Item Value Reference Range Interpretation [...] code = 8.3 mg/dL 8.0-10.5 N CA) [id number] 08:28:00 Test Item Value Reference Range Interpretation Comments PHOSPHOROUS (test code = PHOS) 3.6 MG/DL 2.5-4.9 N [id number] 08:28:00 Test Item Value Reference Range Interpretation Comments MAGNESIUM (test code = MAG) 1.94 mg/dL 1.80-2.40 N [id number] 07:16:00 Test Item Value Reference Range Interpretation Comments GLUBED (test code = 170 MG/DL 70-110 H Performe d by certified GLUBED) 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 [facility] [id number] 07:16:00 Test Item Value Reference Range Interpretation Comments GLUBED (test code = 137 MG/DL 70-110 H Performe d by certified GLUBED) 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 [facility] [id number] 17:01:00 Test Item Value Reference Range Interpretation Comments GLUBED (test code = 88 MG/DL 70-110 N Performe d by certified GLUBED) 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 [facility] RRW-[id number] 16:56:00 Test Item Value Reference Range Interpretation Comments ACT-ISTAT (test code 186 SEC 74-137 H Perform ed by certified = ACTI) 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 [facility] IVK-[id number] 15:03:00 Test Item Value Reference Range Interpretation Comments ACT-ISTAT (test code 235 SEC 74-137 H Perform ed by certified = ACTI) 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 [facility] [id number] 11:33:00 Test Item Value Reference Range Interpretation Comments GLUBED (test code = 97 MG/DL 70-110 N Performe d by certified GLUBED) 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 [facility] [id number] 06:54:00 Test Item Value Reference Range Interpretation Comments GLUBED (test code = 136 MG/DL 70-110 H Performe d by certified GLUBED) 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 [facility] BASIC METABOLIC [id number] 06:00:00 Test Item Value Reference Range Interpretation [...] COMMENTS: To be done morning of Heart WrhtHXXGMQIKYQB5947-21-22 06:00:00 Test Item Value Reference Range Interpretation Comments PHOSPHOROUS (test code = PHOS) 4.1 MG/DL 2.5-4.9 N COMMENTS: To be done morning of Heart [id number] 06:00:00 Test Item Value Reference Range Interpretation Comments MAGNESIUM (test code = MAG) 1.74 mg/dL 1.80-2.40 L COMMENTS: To be done morning of Heart CathTHROMBOPLASTIN TIME [id number] 05:55:00 Test Item Value Reference Range Interpretation Comments THROMBOPLASTIN TIME 37.9 Seconds 25.0-39.5 N Therape utic Range: PARTIAL (test code = 50.4 - 88.3 Seconds PTT) Effective 09/04/2018 CBC W/AUTO [id number] 05:44:00 Test Item Value Reference Range Interpretation [...] COMMENTS: To be done morning of Heart [id number] 05:44:00 Test Item Value Reference Range Interpretation Comments GLUBED (test code = 92 MG/DL 70-110 N Performe d by certified GLUBED) 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 [facility] HGBA1C%2020-08-10 17:22:00 Test Item Value Reference Range Interpretation Comments HGBA1C% (test code = HGBA1C%) 6.6 %A1C 4.8-6.0 H [id number] 17:17:00 Test Item Value Reference Range Interpretation Comments GLUBED (test code = 118 MG/DL 70-110 H Performe d by certified GLUBED) 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 [facility] TSH REFLEX TO [id number] 15:37:00 Test Item Value Reference Range Interpretation Comments TSH REFLEX TO FT4 (test code = 3.19 IU/mL 0.42-5.47 N TSHREFLEX) [id number] 15:37:00 Test Item Value Reference Range Interpretation [...] y by method. COVID 19 Asymptomatic IH [id number] 11:35:00 Test Item Value Reference Range Interpretation [...] y tests. COMMENTS: If not done this bnidlvtpvLJQXIZZI-[id number] 11:31:00 Test Item Value Reference Range Interpretation [...] titative results may babak y by method. [id number] 11:28:00 Test Item Value Reference Range Interpretation Comments D-DIMER (test 1089 ng/mlFEU See_Comment HH Critical resu lt called to code = ALYX RUSSELL, RNby DDIMER) G.LAB.JJ1 at 04 1808/10/20Nurse r [...] to interpret this result as normal/abnormal . [id number] 10:48:00 Test Item Value Reference Range Interpretation Comments GLUBED (test code = 158 MG/DL 70-110 H Performe d by certified GLUBED) 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 [facility] B-TYPE NATRIURETIC [id number] 08:19:00 Test Item Value Reference Range Interpretation Comments B-TYPE NATRIURETIC PEPTIDE (test 508.0 PG/ML 0-100 H code = BNP) BASIC METABOLIC [id number] 08:11:00 Test Item Value Reference Range Interpretation [...] 9.1 mg/dL 8.0-10.5 N CA) HEPATIC FUNCTION [id number] 08:11:00 Test Item Value Reference Range Interpretation [...] 174 IUnit/L 20-125 H code = ALKP) [id number] 08:11:00 Test Item Value Reference Range Interpretation Comments MAGNESIUM (test code = MAG) 1.80 mg/dL 1.80-2.40 N [id number] 08:11:00 Test Item Value Reference Range Interpretation [...] may babak y by method. BASIC METABOLIC [id number] 08:09:00 Test Item Value Reference Range Interpretation [...] code = CA) mg/dL 8.0-10.5 HEPATIC FUNCTION [id number] 08:09:00 Test Item Value Reference Range Interpretation Comments TOTAL PROTEIN (test code = PROT) g/dL 6.4-8.2 ALBUMIN (test code = ALB) g/dL 3.4-5.0 BILIRUBIN TOTAL (test code = BILT) mg/dL 0.0-1.0 BILIRUBIN DIRECT (test code = BILD) MG/DL 0.0-0.30 SGOT/AST (test code = AST) IUnit/L 15-37 SGPT/ALT (test code = ALT) IUnit/L 30-65 ALKALINE PHOSPHATASE TOTAL (test IUnit/L 20-125 code = ALKP) [id number] 08:09:00 Test Item Value Reference Range Interpretation Comments MAGNESIUM (test code = MAG) mg/dL 1.80-2.40 [id number] 08:09:00 Test Item Value Reference Range Interpretation [...] results may babak y by method. PROTHROMBIN [id number] 08:06:00 Test Item Value Reference Range Interpretation [...] (to prevent recurrent infar ct). THROMBOPLASTIN TIME [id number] 08:06:00 Test Item Value Reference Range Interpretation Comments THROMBOPLASTIN TIME 44.5 Seconds 25.0-39.5 H Therape utic Range: PARTIAL (test code = 50.4 - 88.3 Seconds PTT) Effective 09/04/2018 CBC W/AUTO [id number] 07:58:00 Test Item Value Reference Range Interpretation [...] NO = MDIFF) - XR CHEST 1 [id number] 07:57:00 [facility] : 1960 Sex: M FAX: Todd Jacobo MD [phone] [place]: [address]: REG FAX: Martínez Dash NP [phone] Name: FAITH VANCE [facility] : 1960 Age/S: 60/M [address] [place] [address] Blvd Unit #: [id number] Loc: [place] [address] Phys: Martínez Dash PHONE TRIAGE SPECIALIST Acct: [id number] Dis Date: Status: REG ER PHONE #: [phone] Exam Date: 08/10/2020752 FAX #: [phone] Reason: Chest Pain EXAMS: CPT CODE: [id number] XR CHEST 1 V 18314 Chest single view 08/10/2020 HISTORY: Chest pain. Comparison is made to 05/21/2018 FINDINGS: Pacemaker and midline sternotomy wires are stable. The lungs are hypoinflated. No consolidation or pleural effusion is present. No vascular congestion or interstitial edema is present. Heart size is mildlyenlarged. Aorta is unchanged. IMPRESSION: Hypoinflated lungs. No acute cardiopulmonary process. SL: [id number] at 0757 Reported and signed by: Khai Kruse M.D. CC: Todd Jacobo MD; Martínez Dash NP Technologist: RT Ann(R) Trnscrd Date/Time/By: 08/10/2020 (0757) : By: JhonBJM4 Orig Print D/T: S: 08/10/2020 (0800) PAGE 1 Signed Report COMPREHENSIVE METABOLIC [id number] 18:02:00 Test Item Value Reference Range Interpretation [...] 50-136 H TOTAL (test code = ALKP) [id number] 18:02:00 Test Item Value Reference Range Interpretation Comments AMYLASE (test code = SERGIO) 82 Unit/L 25-115 N [id number] 18:02:00 Test Item Value Reference Range Interpretation Comments LIPASE (test code = LIP) 185 Unit/L 114-286 N COMPREHENSIVE METABOLIC [id number] 17:56:00 Test Item Value Reference Range Interpretation [...] TOTAL Unit/L 50-136 (test code = ALKP) [id number] 17:56:00 Test Item Value Reference Range Interpretation Comments AMYLASE (test code = SERGIO) Unit/L 25-115 [id number] 17:56:00 Test Item Value Reference Range Interpretation Comments LIPASE (test code = LIP) 185 Unit/L 114-286 N CBC W/AUTO [id number] 17:46:00 Test Item Value Reference Range Interpretation [...] CRITERIA MDIFF) - CT ABD PELVIS W/O [id number] 17:46:00 Name: FAITH VANCE [facility] : 1960 Age/S: 58 / M [address] Unit #: [id number] Loc: [place] [address] Phys: Nila Chester MD Acct: [id number] Dis Date: Status: REG ER PHONE #: [phone] Exam Date: 01/03/2019 4663 FAX #: Reason: llq EXAMS: CPT: [id number] CT ABD PELVIS W/O CONT 69096 Location of dictation: B2 CT abdomen and [...] VANCE : 1960 Age/S: 58 / M [address] Unit #: [id number] Loc: [place] [address] Phys: Nila Chester MD Acct: [id number] Dis Date: Status: REG ER PHONE #: [phone] Exam Date: 01/03/2019 1732 FAX #: Reason: llq EXAMS: CPT: [id number] CT ABD PELVIS W/O CONT 86144 <Continued> at 1746 Reported and signed by: Renuka Willett M.D. CC: Nila Chester MD Technologist:Tavon Jurado, RT(R)(CT)(MRI) CTDI: DLP: Trnscb Date/Time: 01/03/2019 (1746) t.PXC Orig Print D/T: S: 01/03/2019 (1742) PAGE 2 Signed ReportBedside [id number] 11:47:00 Test Item Value Reference Range Interpretation Comments Bedside Glucose (test code = 78308-8) 155 70-120 H Meter ID: [id number] [facility] – Centralodium [id number] 08:31:00 Test Item Value Reference Range Interpretation Comments Sodium Level (test code = 2951-2) 139 136-145 [facility] Epruk2562-03-85 08:31:00 Test Item Value Reference Range Interpretation Comments Potassium Level (test code = 2823-3) 4.0 3.5-5.1 [facility] CenterChloride [id number] 08:31:00 Test Item Value Reference Range Interpretation Comments Chloride Level (test code = 2075-0) 106 98-107 [facility] CenterCarbon Dioxide Rtwwe1668-67-78 08:31:00 Test Item Value Reference Range Interpretation Comments Carbon Dioxide Level (test code = 8-9) [facility] CenterAnion [id number] 08:31:00 Test Item Value Reference Range Interpretation Comments Anion Gap (test code = 81361-9) 12.0 8-16 [facility] CenterBlood Urea [id number] 08:31:00 Test Item Value Reference Range Interpretation Comments Blood Urea Nitrogen (test code = 7 12-14 3094-0) [facility] CenterCreatinine2018-06-08 08:31:00 Test Item Value Reference Range Interpretation Comments Creatinine (test code = 2160-0) 0.72 0.72-1.25 [facility] CenterBUN/Creatinine Iumer0038-81-16 08:31:00 Test Item Value Reference Range Interpretation Comments BUN/Creatinine Ratio (test code = 11-13 3097-3) [facility] CenterEstimat Glomerular Filtration [id number] 08:31:00 Test Item Value Reference Range Interpretation Comments Estimat Glomerular Filtration Rate 60- >60 (test code = 21322-3) Ranges were taken from the National Kidney Disease Education Program and the National Kidney Foundation literature.Reference ranges:60 or greater: Qllapw75- 59 (for 3 consecutive months): Chronic kidneydisease 15 or less: Kidney failure [facility] CenterGlucose Hjerg6747-72-48 08:31:00 Test Item Value Reference Range Interpretation Comments Glucose Level (test code = ATA8946) 195 74-118 H [facility] CenterCalcium Zctis6507-87-08 08:31:00 Test Item Value Reference Range Interpretation Comments Calcium Level (test code = 30323-5) 9.0 8.4-10.2 [facility] CenterWhite Blood Xnnmt2630-08-53 08:12:00 Test Item Value Reference Range Interpretation Comments White Blood Count (test code = 6690-2) 6.06 4.8-10.8 [facility] CenterRed Blood Xzppx1719-83-78 08:12:00 Test Item Value Reference Range Interpretation Comments Red Blood Count (test code = 789-8) 4.22 4.3-5.7 L [facility] CenterHemoglobin2018-06-08 08:12:00 Test Item Value Reference Range Interpretation Comments Hemoglobin (test code = 75712-5) 12.5 14.0-18.0 L [facility] CenterHematocrit2018-06-08 08:12:00 Test Item Value Reference Range Interpretation Comments Hematocrit (test code = 4544-3) 36.2 38.2-49.6 L [facility] CenterMean Corpuscular Iulxay7481-06-39 08:12:00 Test Item Value Reference Range Interpretation Comments Mean Corpuscular Volume (test code = 85.8 81-99 787-2) [facility] CenterMean Corpuscular Zpcwzyemmi2251-78-85 08:12:00 Test Item Value Reference Range Interpretation Comments Mean Corpuscular Hemoglobin (test code 29.6 28-32 = 785-6) [facility] CenterMean Corpuscular Hemoglobin Yqsogzu1945-23-15 08:12:00 Test Item Value Reference Range Interpretation Comments Mean Corpuscular Hemoglobin Concent 34.5 31-35 (test code = 786-4) [facility] CenterRed Cell Distribution Jprhj1863-92-18 08:12:00 Test Item Value Reference Range Interpretation Comments Red Cell Distribution Width (test code 14.2 11.7-14.4 = 47193-3) [facility] CenterPlatelet Hxttf5389-13-23 08:12:00 Test Item Value Reference Range Interpretation Comments Platelet Count (test code = 777-3) 263 140-360 [facility] CenterNeutrophils (%) (Auto)2017-10-27 08:12:00 Test Item Value Reference Range Interpretation Comments Neutrophils (%) (Auto) (test code = 51.2 38.7-80.0 55706-5) [facility] CenterLymphocytes (%) (Auto)2017-10-27 08:12:00 Test Item Value Reference Range Interpretation Comments Lymphocytes (%) (Auto) (test code = 33.7 18.0-39.1 736-9) [facility] CenterMonocytes (%) (Auto)2017-10-27 08:12:00 Test Item Value Reference Range Interpretation Comments Monocytes (%) (Auto) (test code = 9.1 4.4-11.3 5905-5) [facility] CenterEosinophils (%) (Auto)2017-10-27 08:12:00 Test Item Value Reference Range Interpretation Comments Eosinophils (%) (Auto) (test code = 4.8 0.0-6.0 713-8) [facility] CenterBasophils (%) (Auto)2017-10-27 08:12:00 Test Item Value Reference Range Interpretation Comments Basophils (%) (Auto) (test code = 0.7 0.0-1.0 706-2) [facility] CenterIM GRANULOCYTES %2017-10-27 08:12:00 Test Item Value Reference Range Interpretation Comments IM GRANULOCYTES % (test code = IM 0.5 0.0-1.0 GRANULOCYTES %) [facility] CenterNeutrophils # (Auto)2017-10-27 08:12:00 Test Item Value Reference Range Interpretation Comments Neutrophils # (Auto) (test code = 3.1 2.1-6.9 751-8) [facility] CenterLymphocytes # (Auto)2017-10-27 08:12:00 Test Item Value Reference Range Interpretation Comments Lymphocytes # (Auto) (test code = 2.0 1.0-3.2 28724-3) [facility] CenterMonocytes # (Auto)2017-10-27 08:12:00 Test Item Value Reference Range Interpretation Comments Monocytes # (Auto) (test code = 742-7) 0.6 0.2-0.8 [facility] CenterEosinophils # (Auto)2017-10-27 08:12:00 Test Item Value Reference Range Interpretation Comments Eosinophils # (Auto) (test code = 0.3 0.0-0.4 711-2) [facility] CenterBasophils # (Auto)2017-10-27 08:12:00 Test Item Value Reference Range Interpretation Comments Basophils # (Auto) (test code = 704-7) 0.0 0.0-0.1 [facility] CenterAbsolute Immature Granulocyte (ibek5610-72-45 08:12:00 Test Item Value Reference Range Interpretation Comments Absolute Immature Granulocyte (auto 0.03 0-0.1 (test code = Absolute Immature Granulocyte (auto) [facility] CenterCreatine Kinase WT5821-84-75 15:14:00 Test Item Value Reference Range Interpretation Comments Creatine Kinase MB (test code = 3.90 0-5.0 23047-7) [facility] CenterTroponin S8938-59-77 15:14:00 Test Item Value Reference Range Interpretation Comments Troponin I (test code = FMG1740) 0.054 0-0.300 [facility] CenterCreatine Sfbveo8784-03-00 15:07:00 Test Item Value Reference Range Interpretation Comments Creatine Kinase (test code = 2157-6) 297 30-200 H [facility] CenterHemoglobin A1c Jtpllli9830-81-04 08:04:00 Test Item Value Reference Range Interpretation Comments Hemoglobin A1c Percent (test code = 12.6 4.0-7.0 H Hemoglobin A1c Percent) [facility] CenterTriglycerides Txhua2075-77-15 06:57:00 Test Item Value Reference Range Interpretation Comments Triglycerides Level (test code = 200 0-149 H 2571-8) [facility] CenterCholesterol Hidhu4697-25-71 06:57:00 Test Item Value Reference Range Interpretation Comments Cholesterol Level (test code = 2093-3) 239 0-199 H Less than 200 mg/dL Low Kdwd241 - 239 mg/dL Borderline Phag664 mg/dl and greater High RiskP[facility] CenterLDL Pmuagtinpaw9236-73-75 06:57:00 Test Item Value Reference Range Interpretation Comments LDL Cholesterol (test code = 2089-1) 164 60-130 H [facility] CenterHDL Oemspeeivgv6840-61-79 06:57:00 Test Item Value Reference Range Interpretation Comments HDL Cholesterol (test code = 2085-9) 35 40-60 L [facility] CenterCholesterol/HDL Fykki6161-76-60 06:57:00 Test Item Value Reference Range Interpretation Comments Cholesterol/HDL Ratio (test code = 6.8 3.9-4.7 H 9830-1) [facility] CenterUrine Opiates Asvvqc3694-59-79 16:18:00 Test Item Value Reference Range Interpretation Comments Urine Opiates Screen (test code = NEGATIVE NEGATIVE 38679-4) [facility] CenterUrine Barbiturates Dcxoqo3211-70-75 16:18:00 Test Item Value Reference Range Interpretation Comments Urine Barbiturates Screen (test code NEGATIVE NEGATIVE = 940685692) [facility] CenterUrine Phencyclidine Hkyomf6320-67-92 16:18:00 Test Item Value Reference Range Interpretation Comments Urine Phencyclidine Screen (test NEGATIVE NEGATIVE code = 11716-4) [facility] CenterUrine Amphetamines Ssyptf9984-25-06 16:18:00 Test Item Value Reference Range Interpretation Comments Urine Amphetamines Screen (test code NEGATIVE NEGATIVE = 25416-3) [facility] CenterUrine Methamphetamines Nnyckx2518-46-24 16:18:00 Test Item Value Reference Range Interpretation Comments Urine Methamphetamines Screen (test NEGATIVE NEGATIVE code = Urine Methamphetamines Screen) [facility] CenterUrine Benzodiazepines Fpebya9124-01-32 16:18:00 Test Item Value Reference Range Interpretation Comments Urine Benzodiazepines Screen (test NEGATIVE NEGATIVE code = 77567-1) [facility] CenterUrine Cocaine Gnbain7758-71-41 16:18:00 Test Item Value Reference Range Interpretation Comments Urine Cocaine Screen (test code = NEGATIVE NEGATIVE 3398-5) [facility] CenterUrine Cannabinoids Nrdtsw9265-52-68 16:18:00 Test Item Value Reference Range Interpretation Comments Urine Cannabinoids Screen (test code NEGATIVE NEGATIVE = 83202-5) THESE RESULTS ARE FOR MEDICAL TREATMENT ONLYTHIS REPORT CONTAINS UNCONFIRMED SCREENING RESULTS*POSITIVE RESULTS WILL BE CONFIRMED BY REFERENCE LAB UPON REQUEST CUT-OFFDRUG CLASS CONCENTRATION ng/mLAmphetamines 1000Methamphetamines 1000Cocaine 300Opiate 300Phencyclidine 25Cannabinoid 50Barbiturates 300Benzodiazepine 300Methadone 300[facility] CenterUrine Methadone Gdchzj0773-06-59 16:18:00 Test Item Value Reference Range Interpretation Comments Urine Methadone Screen (test code = NEGATIVE NEGATIVE 85771-9) THESE RESULTS ARE FOR MEDICAL TREATMENT ONLYTHIS REPORT CONTAINS UNCONFIRMED SCREENING RESULTS*POSITIVE RESULTS WILL BE CONFIRMED BY REFERENCE LAB UPON REQUEST CUT-OFFDRUG CLASS CONCENTRATION ng/mLAmphetamines 1000Methamphetamines 1000Cocaine Metabolite 300Opiate 300Phencyclidine 25Cannabinoid 50Barbiturates 300Benzodiazepine 300Methadone 300[facility] CenterProthrombin Tagd1340-25-79 14:13:00 Test Item Value Reference Range Interpretation Comments Prothrombin Time (test code = 5902-2) 13.6 11.9-14.5 [facility] CenterProthromb Time International Ixcsd7611-58-10 14:13:00 Test Item Value Reference Range Interpretation Comments Prothromb Time International Ratio 1.13 (test code = 6301-6) Oral Anticoagulant Therapy INR Values:1. Low Intensity Therapy 1.5 - 2.02. Moderate Intensity Therapy 2.0 - 3.03. High Intensity Therapy(1) 2.5 - 3.54. High Intensity Therapy(2) 3.0 - 4.05. Panic ValueINR > 5.0[facility] CenterActivated Partial Thromboplast Uoec5145-70-77 14:13:00 Test Item Value Reference Range Interpretation Comments Activated Partial Thromboplast Time 27.6 23.8-35.5 (test code = 11626-1) [facility] CenterB-Type Natriuretic Yekzvrz7644-42-86 14:10:00 Test Item Value Reference Range Interpretation Comments B-Type Natriuretic Peptide (test code = 92.8 0-100 66526-3) [facility] CenterAmylase Pstoe8579-28-92 14:10:00 Test Item Value Reference Range Interpretation Comments Amylase Level (test code = 1798-8) 126 25-125 H [facility] CenterLipase2018-06-04 14:10:00 Test Item Value Reference Range Interpretation Comments Lipase (test code = 3040-3) 98 8-78 H [facility] CenterTotal Ugyaincym7591-60-55 14:10:00 Test Item Value Reference Range Interpretation Comments Total Bilirubin (test code = 1975-2) 0.6 0.2-1.2 [facility] CenterAspartate Amino Transf (AST/SGOT)2017-10-23 14:10:00 Test Item Value Reference Range Interpretation Comments Aspartate Amino Transf (AST/SGOT) (test 36 5-34 H code = Aspartate Amino Transf (AST/SGOT)) [facility] CenterAlanine Aminotransferase (ALT/SGPT)2017-10-23 14:10:00 Test Item Value Reference Range Interpretation Comments Alanine Aminotransferase (ALT/SGPT) 34 0-55 (test code = 1742-6) [facility] CenterTotal Rvchowz4647-42-60 14:10:00 Test Item Value Reference Range Interpretation Comments Total Protein (test code = 2885-2) 7.3 6.5-8.1 [facility] CenterAlbumin2018-06-04 14:10:00 Test Item Value Reference Range Interpretation Comments Albumin (test code = 1751-7) 4.0 3.5-5.0 [facility] CenterGlobulin2018-06-04 14:10:00 Test Item Value Reference Range Interpretation Comments Globulin (test code = 64782-2) 3.3 2.3-3.5 [facility] CenterAlbumin/Globulin Osxoa5791-60-96 14:10:00 Test Item Value Reference Range Interpretation Comments Albumin/Globulin Ratio (test code = 1.2 0.8-2.0 1759-0) [facility] CenterAlkaline Lktlnfuuyhk5815-27-90 14:10:00 Test Item Value Reference Range Interpretation Comments Alkaline Phosphatase (test code = 109 40-150 6768-6) [facility] CenterD-Dimer Quantitative (PE/DVT)2017-10-23 14:02:00 Test Item Value Reference Range Interpretation Comments D-Dimer Quantitative (PE/DVT) (test 0.49 0.00-0.45 H code = 05604-0) [facility] CenterDirect Ceqnegqmg6532-18-78 13:47:00 Test Item Value Reference Range Interpretation Comments Direct Bilirubin (test code = 35247-3) 0.2 0.0-5.0 [facility] CenterMagnesium Oelxt9323-24-96 06:52:00 Test Item Value Reference Range Interpretation Comments Magnesium Level (test code = 32489-1) 1.5 1.3-2.1 [facility] CenterUrine ANS6589-64-79 05:09:00 Test Item Value Reference Range Interpretation Comments Urine WBC (test code = 5821-4) NONE 0-5 [facility] CenterUrine QFV2600-27-20 05:09:00 Test Item Value Reference Range Interpretation Comments Urine RBC (test code = 27432-4) NONE 0-5 [facility] CenterUrine Qksywpkd5573-65-67 05:09:00 Test Item Value Reference Range Interpretation Comments Urine Bacteria (test code = 33292-8) NONE NONE [facility] CenterUrine Epithelial Ylypb4021-32-86 05:09:00 Test Item Value Reference Range Interpretation Comments Urine Epithelial Cells (test code = NONE NONE 97766-3) [facility] CenterUrine Bqygq6293-29-73 04:46:00 Test Item Value Reference Range Interpretation Comments Urine Color (test code = 5778-6) YELLOW YELLOW [facility] CenterUrine Nuizzao3751-90-84 04:46:00 Test Item Value Reference Range Interpretation Comments Urine Clarity (test code = 15996-1) CLEAR CLEAR [facility] CenterUrine Specific Mxjijta0914-09-66 04:46:00 Test Item Value Reference Range Interpretation Comments Urine Specific [place] (test code = 1.010 1.010-1.025 5811-5) [facility] CenterUrine lD6775-10-41 04:46:00 Test Item Value Reference Range Interpretation Comments Urine pH (test code = 02634-1) 8 5-7 H [facility] CenterUrine Leukocyte Fgytjmvq5731-49-88 04:46:00 Test Item Value Reference Range Interpretation Comments Urine Leukocyte Esterase (test code NEGATIVE NEGATIVE = 5799-2) [facility] CenterUrine Evuefee2898-28-38 04:46:00 Test Item Value Reference Range Interpretation Comments Urine Nitrite (test code = 80896-9) NEGATIVE NEGATIVE [facility] CenterUrine Dihnyhw6273-63-32 04:46:00 Test Item Value Reference Range Interpretation Comments Urine Protein (test code = 5804-0) NEGATIVE NEGATIVE [facility] CenterUrine Glucose (UA)2017-03-05 04:46:00 Test Item Value Reference Range Interpretation Comments Urine Glucose (UA) (test code = NEGATIVE NEGATIVE 2349-9) [facility] CenterUrine Kcnzipp2841-32-72 04:46:00 Test Item Value Reference Range Interpretation Comments Urine Ketones (test code = 40238-6) NEGATIVE NEGATIVE [facility] CenterUrine Unwylxlwheqz5892-42-13 04:46:00 Test Item Value Reference Range Interpretation Comments Urine Urobilinogen (test code = 0.2 0.2-1 57910-4) [facility] CenterUrine Hackvtseh8362-55-16 04:46:00 Test Item Value Reference Range Interpretation Comments Urine Bilirubin (test code = 1978-6) NEGATIVE NEGATIVE [facility] CenterUrine Xgkat6536-76-51 04:46:00 Test Item Value Reference Range Interpretation Comments Urine Blood (test code = 83653-9) 2+ NEGATIVE H [facility] CenterCTA B[facility]IN [facility] [address] [place] [address] PatientName: FAITH VANCE MR #: [id number] : 1960 Age/Sex: 57/M Req #: [id number] Adm Physician: ALEXIS COX MD Ordered by: ALEXIS COX MD Report #: [id number] Location: [facility] Room/Bed: [place] [address] Procedure: [id number] CT/CTA BRAIN Exam Date: 10/24/17 Exam Time: [...] COPY TO: ALEXIS COX MDCT BRAIN WO [place] [address] PatientName: FAITH VANCE MR #: [id number] : 1960 Age/Sex: 57/M Req #: [id number] Adm Physician: Ordered by: KHAI WAHL MD Report #: [id number] Location: ER Room/Bed: Procedure: [id number] CT/CT BRAIN WO Exam Date: 10/23/17 Exam [...] calcifications in the carotid siphons and intradural v ertebral arteries. IMPRESSION: 1. No acute intracranial abnormalities. 2. No changes from the previous head CT of 04/04/2017. Findings discussed with Dr. Silvana manzo at 4:36 PM on 10/23/2021. Signed by: Dr. Ana Maria Arteaga M.D. on 10/23/2017 4:43 PM Dictated By: ANA MARIA ARTEAGA MD 164 Transcribed By: ANDREE on 10/23/17 164 COPY TO: KHAI WAHL V [place] [address] Patient Name: FAITH VANCE MR #: [id number] : 1960 Age/Sex: 57/M Req #: [id number] Adm Physician: Ordered by: KHAI WHAL MD Report #: [id number] Location: ER Room/Bed: _ Procedure: [id number] CT/CTA CHEST Exam Date: 10/23/17 Exam Time: [...] is below limits set by [facility]).FINDINGS: Lines and Tubes: Pacemaker with leads terminating [...] 10/23/17 1621 COP[facility]: [facility]HL [facility] [address] [place] [address] PatientName: FAITH VANCE MR #: [id number] : 1960 Age/Sex: 57/M Req #: [id number] Adm Physician: Ordered by: KHAI WAHL MD Report #: [id number] Location: ER Room/Bed: __ Procedure: [id number] DX/CHEST SINGLE (PORTABLE) Exam Date: 10/23/17 Exam [...] on 10/23/2017 at 14:43 Dictated By: ELIE ABRFIELD MD 1443 Transcribed By: ANIBAL on 10/23/17 1443 COPY TO: KHAI WAHL V [place] [address] PatientName: FAITH VANCE MR #: [id number] : 1960 Age/Sex: 56/M Req #: [id number] Adm Physician: Ordered by: JACQUELYN MONTES DE OCA MD Report #: [id number] Location: ER Room/Bed: Procedure: [id number] CT/CT BRAIN WO Exam Date: Exam Time: [...] MONTES DE OCA MDCT CERVICAL SPINE WO [place] [address] Patient Name: FAITH VANCE MR #: [id number] : 1960 Age/Sex: 56/M Req #: [id number] Adm Physician: Ordered by: JACQUELYN MONTES DE OCA MD Report #: [id number] Location: Room/Bed: Procedure: [id number] CT/CT CERVICAL SPINE WO Exam Date: Exam [...] 04/04/17206 COPY TO: JACQUELYN MONTES DE OCA [facility] SINGLE (PORTABLE) [place] [address] PatientName: FAITH VANCE MR #: [id number] : 1960 Age/Sex: 56/M Req #: [id number] Adm Physician: Ordered by: JACQUELYN MONTES DE OCA MD Report #: [id number] Location: ER Room/Bed: Procedure: [id number] DX/CHEST SINGLE (PORTABLE) Exam Date: 04/04/17 Exam [...] OCA MDHIP RIGHT 2-3 VW (+/- PELVIS) [place] [address] PatientName: FAITH VANCE MR #: [id number] : 1960 Age/Sex: 56/M Req #: [id number] Adm Physician: Ordered by: JACQUELYN MONTES DE OCA MD Report #: [id number] Location: ER Room/Bed: Procedure: DX/HIP RIGHT 2-3 [...] DE OCA MDSP LUMBAR, COMPLETE MIN 4VW [place] [address] PatientName: FAITH VANCE MR #: [id number] : 1960 Age/Sex: 56/M Req #: [id number] Adm Physician: Ordered by: JACQUELYN MONTES DE OCA MD Report #: [id number] Location: ER Room/Bed: Procedure: DX/SP LUMBAR, COMPLETE [...] JACQUELYN MONTES DE OCA MDUS ABDOMEN COMPLETE [place] [address] PatientName: FAITH VANCE MR #: [id number] : 1960 Age/Sex: 56/M Req #: [id number] [facility] Physician: NICHELLE PALACIOS MD Ordered by: SCOTT AMIN MD Report #: [id number] Location: [facility] Room/Bed: [place] [address] Procedure: [id number] US/US ABDOMEN COMPLETE Exam Date: 03/08/17 Exam [...] on 03/08/17 1040 COPY TO: SCOTT AMIN [facility] SINGLE (PORTABLE) [place] [address] PatientName: FAITH VANCE MR #: [id number] : 1960 Age/Sex: 56/M Req #: [id number] Adm Physician: Ordered by: JACQUELYN MONTES DE OCA MD Report #: [id number] Location: ER Room/Bed: Procedure: [id number] DX/CHEST SINGLE (PORTABLE) Exam Date: 03/05/17 Exam [...]
[2022-06-03] MEDS ORDERED: ASPIRIN EC 81 MG TAB PO ONE (18:46)
[2022-06-03] MEDS ORDERED: NA CHLORIDE 0.9% 1,000 ML ONE (18:46)
[2022-06-03] MEDS ORDERED: FAMOTIDINE 20 MG/2 ML VIAL IV ONE (19:01)
[2022-06-03] MEDS ORDERED: ONDANSETRON 4 MG/2 ML VIAL ONE (19:01)
[2022-06-03] MEDS ORDERED: MORPHINE 2 MG/ML SYR ONE (19:01)
[2022-06-03 19:07] LABS: Hematocrit 34.3 % (39.6-49.0); Lymphocytes % 18.1 % (15.3-44.8); MCV 87.2 fL (80-100); MPV 7.3 fL (7.6-11.3); Protime INR 1.4; RBC Red Blood Cell Count 3.94 M/uL (4.33-5.43)
[2022-06-03 19:23] LABS: SARS-CoV-2 Antigen Rapid Res Negative (Negative)
[2022-06-03 19:25] LABS: Albumin 2.7 g/dL (3.4-5.0); Bilirubin Direct 0.4 mg/dL (0-0.2); Potassium 3.8 mmol/L (3.5-5.1); Protein, Total 6.8 g/dL (6.4-8.2); Troponin High Sensitivity 34.2 pg/mL (<58.9)
--- NOTE | 2022-06-03 20:23 | RAD REPORT ---
EXAM DESCRIPTION: CT - Chest For Pe Angio - 06/03/2022 8:12 pm CLINICAL HISTORY: Chest pain COMPARISON: December 2021 TECHNIQUE: Dynamically enhanced axial 3 mm thick images of the chest were obtained during administra tion of <100> mL Isovue 370 IV contrast. Coronal and oblique reconstruction images were generated and reviewed. Exam utilizes a protocol for optimal evaluation of pulmonary arterial tree. Maximum intensity projections 3D imaging was utilized All CT scans are performed using dose optimization technique as appropriate and may include automated exposure control or mA/KV adjustment according to patient size. FINDINGS: A pulmonary embolus is not seen. A thoracic aortic aneurysm is not noted. Moderate to large bilateral pleural effusions with bibasilar atelectasis. IMPRESSION: Negative for a pulmonary embolism. Moderate to large bilateral pleural effusions
--- NOTE | 2022-06-03 20:28 | RAD REPORT ---
EXAM DESCRIPTION: CT - Abdomen Pelvis W Contrast - 06/03/2022 8:12 pm CLINICAL HISTORY: Abdominal pain COMPARISON: none. TECHNIQUE: Computed axial tomography of the abdomen pelvis was obtained. 100 cc Isovue-300 was admin istered intravenously. Oral contrast was not requested which limits evaluation of bowel and appendix All CT scans are performed using dose optimization technique as appropriate and may include automated exposure control or mA/KV adjustment according to patient size. FINDINGS: Mild liver fatty infiltration Small right renal cyst The spleen, pancreas, adrenals and left kidney unremarkable Cholecystectomy There is no evidence of diverticulitis. Postsurgical changes involve the spine. Normal appendix Small amount of ascites IMPRESSION: Small amount ascites Mild fatty infiltration
--- NOTE | 2022-06-03 20:46 | ER ---
Nurse's Notes [facility] Name: Ernie Rooney Age: 62 yrs Sex: Male : 1960 Arrival Date: 06/03/2022 Time: 18:22 Bed 6 Private MD: Diagnosis: Chest pain, unspecified;Abdominal pain, Generalized;Shortness of breath;Mild CHF - acute exacerbation Presentation: 06/03 18:24 Chief complaint: EMS states: patient called complaining of chest pain and abdominal ko1 pain. Blood sugar 100, bp 154/92. Coronavirus screen: At this time, the client does not indicate any symptoms associated with coronavirus-19. Ebola Screen: No symptoms or risks identified at this time. Initial Sepsis Screen: Does the patient meet any 2 criteria? No. Patient's initial sepsis screen is negative. Does the patient have a suspected source of infection? No. Patient's initial sepsis screen is negative. Risk Assessment: Do you want to hurt yourself or someone else? Patient reports no desire to harm self or others. Onset of symptoms was June 03, 2022. 18:24 Method Of Arrival: EMS: [facility] ko1 18:24 Acuity: TONE 3 ko1 Triage Assessment: 18:26 General: Appears distressed, uncomfortable, Behavior is calm, cooperative, appropriate ko1 for age. Pain: Complains of pain in chest. Historical: - Allergies: 18:26 NKA; ko1 - Home Meds: 18:26 furosemide 40 mg Oral tab 1 tab once daily [Active]; albuterol sulfate 90 mcg/actuation ko1 Inhl aepb [Active]; apixaban 5 mg Oral tab 1 tab 2 times per day [Active]; atorvastatin 40 mg Oral tab 1 tab once daily [Active]; aspirin 81 mg Oral chew [Active]; cyclobenzaprine 10 mg Oral tab 1 tab as needed [Active]; fenofibrate micronized 200 mg Oral Tb24 1 cap once daily [Active]; levothyroxine 50 mcg Tb24 1 cap once daily [Active]; venlafaxine 75 mg Oral tab 1 tab 2 times per day [Active]; tamsulosin 0.4 mg Oral Tb24 1 cap once daily [Active]; spironolactone 25 mg Oral tab 1 tab once daily [Active]; omeprazole 20 mg Oral cpDR 1 cap once daily [Active]; metformin 500 mg Oral tab 1 tab daily [Active]; Humulin N Pen 100 unit/mL (3 mL) Sub-Q inpn [Active]; lisinopril 2.5 mg Oral tab 1 tab once daily [Active]; glipizide 10 mg Oral tab 1 tab once daily [Active]; gabapentin 800 mg Oral tab 1 tab 3 times per day [Active]; - PMHx: 18:26 Pacemaker; Arthritis; Back pain; CAD; CHF; CVA; Depression; Diabetes - NIDDM; ko1 Fibromyalgia; GERD; Hyperlipidemia; Hypertensive disorder; Hypothyroidism; Left sided weakness from previous CVA; Myocardial infarction; - PSHx: 18:26 bilat BKA's; bypass; CABG; ko1 - Immunization history:: Adult Immunizations unknown. - Social history:: Smoking status: Patient/guardian denies using tobacco. - Family history:: not pertinent. Screenin:[facility] ED Fall Risk Assessment (Adult) History of falling in the last 3 months, ko1 including since admission No falls in past 3 months (0 pts) Confusion or Disorientation No (0 pts) Intoxicated or Sedated No (0 pts) Impaired Gait Yes (1 pt) Mobility Assist Device Used Yes (1 pt) Altered Elimination No (0 pt) Score/Fall Risk Level 0 - 2 = Low Risk Oriented to surroundings, Maintained a safe environment, Educated pt \T\ family on fall prevention, incl call for assistance when getting out of bed, Assessed \T\ reinforced patient's understanding of fall precautions, Provided non-skid footwear, Hourly rounding (assess needs \T\ fall precautionary measures) done, Used ambulatory aids as needed (educated on \T\ assisted with), Used gait belt as appropriate. Abuse screen: Denies threats or abuse. Denies injuries from another. Nutritional screening: No deficits noted. Tuberculosis screening: No symptoms or risk factors identified. Assessment: 18:28 Neuro: No deficits noted. Cardiovascular: Chest pain. Respiratory: No deficits noted. ko1 GI: Reports upper abdominal pain. : No deficits noted. EENT: No deficits noted. Derm: No deficits noted. 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 19:30 Reassessment: Patient appears in no apparent distress at this time. Patient and/or jb4 family updated on plan of care and expected duration. Pain level reassessed. Patient is alert, oriented x 3, equal unlabored respirations, skin warm/dry/pink. 20:30 Reassessment: Patient appears in no apparent distress at this time. Patient and/or jb4 family updated on plan of care and expected duration. Pain level reassessed. Patient is alert, oriented x 3, equal unlabored respirations, skin warm/dry/pink. 21:30 Reassessment: Pt is resting in bed with eyes closed, respirations are even and jb4 unlabored, with no s/s of pain or distress noted. 22:25 Reassessment: Patient appears in no apparent distress at this time. Patient and/or jb4 family updated on plan of care and expected duration. Pain level reassessed. Patient is alert, oriented x 3, equal unlabored respirations, skin warm/dry/pink. Pt transferred to room 424 with sterilisation technician. Vital Signs: 18:24 BP 166 / 99; Pulse 92; Resp 18; Temp 98; Pulse Ox 99% ; Pain 10/10; ko1 18:39 BP 158 / 100; Pulse 91; Resp 18; Pulse Ox 99% ; ko1 18:55 BP 159 / 98; Pulse 89; Pulse Ox 99% ; ko1 19:30 BP 149 / 94; Pulse 87; Resp 16; Pulse Ox 94% on R/A; jb4 20:30 BP 150 / 91; Pulse 88; Resp 18; Pulse Ox 95% on R/A; jb4 21:32 BP 135 / 82; Pulse 86; Resp 18; Pulse Ox 93% on R/A; jb4 22:25 BP 149 / 93; Pulse 89; Resp 18; Pulse Ox 98% ; jb4 ED Course: 18:22 Patient arrived in ED. eb 18:26 Triage completed. ko1 18:26 Arm band placed on right wrist. ko1 18:28 Patient has correct armband on for positive identification. Bed in low position. Call ko1 light in reach. Side rails up X2. Client placed on continuous cardiac and pulse oximetry monitoring. NIBP monitoring applied. equipment monitor phototypesetting on. 18:28 Maintain EMS IV. Dressing intact. Good blood return noted. Site clean \T\ dry. Gauge \T\ ko 1 site: 22 r FA. Flushed right forearm with 5 ml normal saline. 18:32 Malka Samuels, RN is Primary Nurse. ko1 18:33 Mustapha Cole MD is Attending Physician. caitlyn 18:55 SARS RAPID Sent. ko1 18:55 Lipase Sent. ko1 18:55 Basic Metabolic Panel Sent. ko1 18:55 CBC with Diff Sent. ko1 18:55 LFT's Sent. ko1 18:55 Magnesium Sent. ko1 18:55 NT PRO-BNP Sent. ko1 18:55 PT-INR Sent. ko1 18:55 Troponin HS Sent. ko1 19:16 XRAY Chest (1 view) In Process Unspecified. EDMS 19:21 AMMONIA Sent. jb4 19:21 Type And Screen Sent. jb4 19:25 Attending Physician role handed off by Mustapha Cole MD kdr 19:25 Angel Merlos MD is Attending Physician. kdr 20:13 Chest For Pe Angio In Process Unspecified. EDMS 20:14 Abdomen In Process Unspecified. EDMS 20:45 Alf Rios is Hospitalizing Provider. kdr 22:25 No provider procedures requiring assistance completed. Patient admitted, IV remains in jb4 place. Administered Medications: 18:46 Drug: Aspirin 81 mg Route: PO; ko1 19:00 Follow up: Response: No adverse reaction bp 18:55 Drug: NS 0.9% 1000 ml Route: IV; Rate: 125 ml/hr; Site: right forearm; ko1 19:00 Drug: Pepcid (famotidine) 20 mg Route: IVP; Site: right forearm; ko1 19:02 Drug: Zofran (Ondansetron) 4 mg Route: IVP; Site: right forearm; ko1 19:03 Drug: morphine 2 mg Route: IVP; Infused Over: 4 mins; Site: right forearm; ko1 Medication: 22:25 VIS not applicable for this client. jb4 Outcome: 20:46 Decision to Hospitalize by Provider. kdr 22:25 Admitted to Tele accompanied by tech, via stretcher, room 424, with chart, Report jb4 called to SHEBA Caban 22:25 Condition: stable 22:25 Discharge instructions given to patient, Instructed on the need for admit, Demonstrated understanding of instructions. 22:27 Patient left the ED. jb4 Signatures: Dispatcher [employer] EDMustapha Duggan MD MD cha Rittger, Kevin, MD MD kdr Bryson, James, RN RN jb4 Khai Hernandez, RN RN bp Cristine Kaplan Kathy RN RN ko1
--- NOTE | 2022-06-03 20:46 | EDPHYS ---
Physician Documentation [facility] [place] Name: Ernie Rooney Age: 62 yrs Sex: Male : 1960 Arrival Date: 06/03/2022 Time: 18:22 Bed 6 Private MD: ED Physician Armin Fuentes HPI: 06/03 18:43 This 62 yrs old Male presents to ER via EMS with complaints of CP, ABDOMINAL caitlyn PAIN. 18:43 The patient or guardian reports chest pain that is located primarily in the substernal caitlyn area, epigastric area. Onset: 1 day(s) ago. The patient presents with abdominal pain in the upper abdomen, in the lower abdomen. Onset: The symptoms/episode began/occurred 1 day(s) ago. The pain does not radiate. The symptoms do not radiate. Associated signs and symptoms: Pertinent positives: nausea, shortness of breath. The symptoms are described as constant, crampy, steady. Modifying factors: The symptoms are alleviated by nothing, the symptoms are aggravated by pressure, touching the area. Historical: - Allergies: 18:26 NKA; ko1 - Home Meds: 18:26 furosemide 40 mg Oral tab 1 tab once daily [Active]; albuterol sulfate 90 mcg/actuation ko1 Inhl aepb [Active]; apixaban 5 mg Oral tab 1 tab 2 times per day [Active]; atorvastatin 40 mg Oral tab 1 tab once daily [Active]; aspirin 81 mg Oral chew [Active]; cyclobenzaprine 10 mg Oral tab 1 tab as needed [Active]; fenofibrate micronized 200 mg Oral Tb24 1 cap once daily [Active]; levothyroxine 50 mcg Tb24 1 cap once daily [Active]; venlafaxine 75 mg Oral tab 1 tab 2 times per day [Active]; tamsulosin 0.4 mg Oral Tb24 1 cap once daily [Active]; spironolactone 25 mg Oral tab 1 tab once daily [Active]; omeprazole 20 mg Oral cpDR 1 cap once daily [Active]; metformin 500 mg Oral tab 1 tab daily [Active]; Humulin N Pen 100 unit/mL (3 mL) Sub-Q inpn [Active]; lisinopril 2.5 mg Oral tab 1 tab once daily [Active]; glipizide 10 mg Oral tab 1 tab once daily [Active]; gabapentin 800 mg Oral tab 1 tab 3 times per day [Active]; - PMHx: 18:26 Pacemaker; Arthritis; Back pain; CAD; CHF; CVA; Depression; Diabetes - NIDDM; ko1 Fibromyalgia; GERD; Hyperlipidemia; Hypertensive disorder; Hypothyroidism; Left sided weakness from previous CVA; Myocardial infarction; - PSHx: 18:26 bilat BKA's; bypass; CABG; ko1 - Immunization history:: Adult Immunizations unknown. - Social history:: Smoking status: Patient/guardian denies using tobacco. - Family history:: not pertinent. ROS: 18:43 Constitutional: Negative for fever, chills, and weight loss, Eyes: Negative for injury, caitlyn pain, redness, and discharge, ENT: Negative for injury, pain, and discharge, Neck: Negative for injury, pain, and swelling, Respiratory: Negative for shortness of breath, cough, wheezing, and pleuritic chest pain, Back: Negative for injury and pain, : Negative for injury, bleeding, discharge, and swelling, MS/Extremity: Negative for injury and deformity, Skin: Negative for injury, rash, and discoloration, Neuro: Negative for headache, weakness, numbness, tingling, and seizure, Psych: Negative for depression, anxiety, suicide ideation, homicidal ideation, and hallucinations, Allergy/Immunology: Negative for hives, rash, and allergies, Endocrine: Negative for neck swelling, polydipsia, polyuria, polyphagia, and marked weight changes, Hematologic/Lymphatic: Negative for swollen nodes, abnormal bleeding, and unusual bruising. 18:43 Cardiovascular: Positive for chest pain, of the chest. 18:43 Abdomen/GI: Positive for abdominal pain, of the right upper quadrant, left upper quadrant, right lower quadrant and left lower quadrant. Exam: 18:43 Constitutional: This is a well developed, well nourished patient who is awake, alert, caitlyn and in no acute distress. Head/Face: Normocephalic, atraumatic. Eyes: Pupils equal round and reactive to light, extra-ocular motions intact. Lids and lashes normal. Conjunctiva and sclera are non-icteric and not injected. Cornea within normal limits. Periorbital areas with no swelling, redness, or edema. ENT: Nares patent. No nasal discharge, no septal abnormalities noted. Tympanic membranes are normal and external auditory canals are clear. Oropharynx with no redness, swelling, or masses, exudates, or evidence of obstruction, uvula midline. Mucous membranes moist. Neck: Trachea midline, no thyromegaly or masses palpated, and no cervical lymphadenopathy. Supple, full range of motion without nuchal rigidity, or vertebral point tenderness. No Meningismus. Chest/axilla: Normal chest wall appearance and motion. Nontender with no deformity. No lesions are appreciated. Cardiovascular: Regular rate and rhythm with a normal S1 and S2. No gallops, murmurs, or rubs. Normal PMI, no JVD. No pulse deficits. Respiratory: Lungs have equal breath sounds bilaterally, clear to auscultation and percussion. No rales, rhonchi or wheezes noted. No increased work of breathing, no retractions or nasal flaring. Back: No spinal tenderness. No costovertebral tenderness. Full range of motion. Male : Normal genitalia with no discharge or lesions. Skin: Warm, dry with normal turgor. Normal color with no rashes, no lesions, and no evidence of cellulitis. MS/ Extremity: Pulses equal, no cyanosis. Neurovascular intact. Full, normal range of motion. Neuro: Awake and alert, GCS 15, oriented to person, place, time, and situation. Cranial nerves II-XII grossly intact. Motor strength 5/5 in all extremities. Sensory grossly intact. Cerebellar exam normal. Normal gait. Psych: Awake, alert, with orientation to person, place and time. Behavior, mood, and affect are within normal limits. 18:43 Abdomen/GI: Inspection: distension, that is mild, Bowel sounds: active, Palpation: moderate abdominal tenderness, in the right upper quadrant, left upper quadrant, right lower quadrant and left lower quadrant, Liver: no appreciated palpable abnormalities, Hernia: not appreciated. Vital Signs: 18:24 BP 166 / 99; Pulse 92; Resp 18; Temp 98; Pulse Ox 99% ; Pain 10/10; ko1 18:39 BP 158 / 100; Pulse 91; Resp 18; Pulse Ox 99% ; ko1 18:55 BP 159 / 98; Pulse 89; Pulse Ox 99% ; ko1 19:30 BP 149 / 94; Pulse 87; Resp 16; Pulse Ox 94% on R/A; jb4 20:30 BP 150 / 91; Pulse 88; Resp 18; Pulse Ox 95% on R/A; jb4 21:32 BP 135 / 82; Pulse 86; Resp 18; Pulse Ox 93% on R/A; jb4 22:25 BP 149 / 93; Pulse 89; Resp 18; Pulse Ox 98% ; jb4 MDM: 18:33 Patient medically screened. caitlyn 18:51 Differential diagnosis: abnormal EKG, acute myocardial infarction, acute pericarditis, caitlyn Cholelithiasis. HEART Score: History: Highly Suspicious (2), Risk Factors: > or = 3 Risk factors for atherosclerotic disease (2), [Hypercholesterolemia] [Hypertension] [DM] [+ Family HX] [Obesity]. The patient was given aspirin in the Emergency Department. TARA Risk Score: 1 - Three or more CAD risk factors, 1- Known CAD, 1 - ASA use in past 7 days. Data reviewed: vital signs, nurses notes, lab test result(s), EKG, radiologic studies, CT scan, plain films. Consideration of Admission/Observation Patient was admitted/placed on observation. Escalation of care including admission/observation considered. Management of patient was discussed with the following: Hospitalist: BUZZ RIOS. I considered the following discharge prescriptions or medication management in the emergency department Medications were administered in the Emergency Department. See JUL. 19:00 ED course: DR ARMIN FUENTES TO REVIEW ALL LABS, STUDIES AND DISPO. 06/03 18:36 Order name: Basic Metabolic Panel; Complete Time: 20:37 06/03 18:36 Order name: CBC with Diff; Complete Time: 20:37 06/03 18:36 Order name: LFT's; Complete Time: 20:37 06/03 18:36 Order name: Magnesium; Complete Time: 20:37 06/03 18:36 Order name: NT PRO-BNP; Complete Time: 20:37 06/03 18:36 Order name: PT-INR; Complete Time: 20:37 06/03 18:36 Order name: Troponin HS; Complete Time: 20:37 06/03 18:36 Order name: XRAY Chest (1 view) 06/03 18:36 Order name: UDS 06/03 18:36 Order name: Lipase; Complete Time: 20:37 06/03 18:36 Order name: SARS RAPID; Complete Time: 20:37 [facility] 06/03 19:01 Order name: AMMONIA; Complete Time: 20:37 [facility] 06/03 19:01 Order name: Type And Screen; Complete Time: 20:37 [facility] 06/03 21:19 Order name: ABO/RH no charge EDMS 06/03 18:36 Order name: EKG; Complete Time: 18:37 [facility] 06/03 18:36 Order name: Cardiac monitoring; Complete Time: 18:37 [facility] 06/03 18:36 Order name: EKG - Nurse/Tech; Complete Time: 19:21 [facility] 06/03 18:36 Order name: IV Saline Lock; Complete Time: 18:37 [facility] 06/03 18:36 Order name: Labs collected and sent; Complete Time: 18:55 [facility] 06/03 18:36 Order name: O2 Per Protocol; Complete Time: 18:37 [facility] 06/03 18:36 Order name: O2 Sat Monitoring; Complete Time: 18:37 [facility] 06/03 18:43 Order name: CT Chest For PE Angio [facility] 06/03 18:43 Order name: CT Abd/Pelvis - IV Contrast Only [facility] 06/03 18:47 Order name: Chest For Pe Angio; Complete Time: 20:37 EDMS 06/03 18:49 Order name: Abdomen ; Complete Time: 20:37 EDMS Administered Medications: 18:46 Drug: Aspirin 81 mg Route: PO; ko1 19:00 Follow up: Response: No adverse reaction bp 18:55 Drug: NS 0.9% 1000 ml Route: IV; Rate: 125 ml/hr; Site: right forearm; ko1 19:00 Drug: Pepcid (famotidine) 20 mg Route: IVP; Site: right forearm; ko1 19:02 Drug: Zofran (Ondansetron) 4 mg Route: IVP; Site: right forearm; ko1 19:03 Drug: morphine 2 mg Route: IVP; Infused Over: 4 mins; Site: right forearm; ko1 Disposition Summary: 06/03/22 20:46 Hospitalization Ordered Hospitalization Status: Observation kdr Provider: Alf Rios Location: Telemetry/MedSurg (observation) kdr Condition: Fair kdr Problem: an acute exacerbation kdr Symptoms: have improved kdr Bed/Room Type: Standard [facility] Room Assignment: 424(06/03/22 21:29) kl Diagnosis - Chest pain, unspecified kdr - Abdominal pain, Generalized kdr - Shortness of breath kdr - Mild CHF - acute exacerbation kdr Forms: - Medication Reconciliation Form kdr - SBAR form kdr Signatures: Dispatcher [employer] Giulia Whittington, Mustapha Whatley RN, MD MD cha Rittger, Kevin, MD MD kdr Oliver, Kathy, RN RN ko1 Buzz Moreno PA-C PAKhai Bob RN bp Corrections: (The following items were deleted from the chart) 21:29 20:46 kdr kl
--- NOTE | 2022-06-03 21:07 | P.HP ---
Certification for Inpatient Patient admitted to: Observation With expected LOS: <2 Midnights Patient will require the following post-hospital care: None Practitioner: I am a practitioner with admitting privileges, knowledge of patient current condition, hospital course, and medical plan of care. Services: Services provided to patient in accordance with Admission requirements found in Title 42 Section 412.3 of the Code of Federal Regulations Patient History Date of Service: 06/03/22 Reason for admission: Chest Pain, CHF, SHOB History of Present Illness: Patient is a 62-year-old male with history of CAD s/p CABG with pacemaker/defibrillator, afib on eliquis, hypertension, hyperlipidemia, IDDM, hypothyroidism, and systolic CHF who presented to the ED via EMS with complaints of chest pain. He has had several cardiac works ups, found to have an EF of 23% with severe global hypokinesis and mild pulmonary hypertension, and has life vest. Cardiology has recommended outpatient stress test, echocardiogram, and lower extremity arterial Doppler. Patient does not take his medications because he states that he cannot afford them. EKG without acute changes. Troponin WNL. BNP is elevated at [address] chest showing moderate to large bilateral pleural effusions. ED provider wishes to admit patient for observation, ACS rule out/CHF exacerbation. Allergies No Known Allergies Allergy (Verified 12/21/21 00:23) Home medications list reviewed: Yes Home Medications: ondansetron HCL [Zofran] 4 mg PO Q8H PRN 08/01/19 Cyclobenzaprine [Flexeril*] 10 mg PO BID PRN 12/21/21 Dicyclomine [Bentyl*] 20 mg PO QID 12/21/21 Docusate Sodium 100 mg PO DAILY 12/21/21 Gabapentin 800 mg PO BID 12/21/21 Levothyroxine Sodium [Levothyroxine] 50 mcg PO DAILY 30 Days #30 01/15/22 Venlafaxine HCl 75 mg PO BID 30 Days #60 01/15/22 glipiZIDE [Glipizide] 10 mg PO DAILY #30 01/15/22 Apixaban [Eliquis] 5 mg PO BID #60 01/28/22 Aspirin Chewable [Aspirin Chewable*] 81 mg PO DAILY #30 tab.chew 01/28/22 Atorvastatin Calcium [Lipitor] 40 mg PO BEDTIME #30 tab 01/28/22 Furosemide 40 mg PO BID #60 tab 01/28/22 Hydrocodone 5/APAP 325 [[place] 5/325*] 1 tab PO Q4H PRN #12 tab 01/28/22 Insulin -Regular Human [Novolin -R*] 6 unit SQ BIDWM #10 ml 01/28/22 Insulin 70/30 NPH/Reg Human [Novolin 70/30*] 6 unit SQ DAILY #10 ml 01/28/22 Metformin HCl 500 mg PO DAILY #30 tab 01/28/22 Metoprolol Succinate 0.5 tab PO DAILY 30 Days #30 tab 01/28/22 Omeprazole 20 mg PO DAILY 30 Days #30 01/28/22 Spironolactone 25 mg PO DAILY #30 tab 01/28/22 Tamsulosin [Flomax*] 0.4 mg PO DAILY #30 cap 01/28/22 lisinopriL [Prinivil*] 2.5 mg PO DAILY #30 tab 01/28/22 - Past Medical/Surgical History Diabetic: Yes -: CAD/CA -: GERD -: Hypertension -: Anxiety/depression -: DM insulin dependent -: Hypothyroidism -: enlarged prostate -: cataract in the left eye -: fibromyalgia -: hyperlipidemia -: neuropathy -: Systolic CHF -: pacemaker placement May 2017 -: triple bypass 2002 4 stents -: back surgeries x 6 -: arthroscopic surgeries bilateral knees -: left forearm rodding -: Cholecystectomy -: Appendectomy -: tonsillectomy Psychosocial/ Personal History: Patient lives at home. He does not work. - Family History Mother -: Heart disease, Hypertension grandparents -: Diabetes, Stroke - Social History Smoking Status: Current every day smoker Alcohol use: No CD- Drugs: No Caffeine use: Yes Place of Residence: Home Review of Systems Respiratory: Shortness of Breath Cardiovascular: Chest Pain Gastrointestinal: Abdominal Pain Physical Examination - Vital Signs Temperature: 98 F Blood Pressure: 150/91 Pulse: 88 Respirations: 18 Pulse Ox (%): 95 - Physical Exam General: Alert, In no apparent distress HEENT: Atraumatic, PERRLA, EOMI, Sclerae nonicteric Neck: Supple, 2+ carotid pulse no bruit, No LAD, Without JVD or thyroid abnormality Respiratory: Crackles/rales Cardiovascular: Regular rate/rhythm, Normal S1 S2 Gastrointestinal: Normal bowel sounds, No tenderness Musculoskeletal: No tenderness Integumentary: No rashes Neurological: Normal speech, Normal affect - Studies Laboratory Data (last 24 hrs) 06/03/22 18:55: PT 15.4 H, INR 1.40 06/03/22 18:55: WBC 5.50, Hgb 11.4 L, Hct 34.3 L, Plt Count 314 06/03/22 18:55: Sodium 144, Potassium 3.8, BUN 14, Creatinine 0.92, Glucose 106, Magnesium 2.0, Total Bilirubin 1.0, AST 13 L, ALT 16, Alkaline Phosphatase 162 H, Lipase 69 L Assessment and Plan - Problems (Diagnosis) (1) Chest pain Current Visit: Yes Status: Acute Qualifiers: Chest pain type: unspecified Qualified Code(s): R07.9 - Chest pain, unspecified (2) Noncompliance with medication regimen Current Visit: Yes Status: Chronic (3) CAD (coronary artery disease) Current Visit: Yes Status: Chronic Qualifiers: Coronary Disease-Associated Artery/Lesion type: bypass graft [place] vs. transplanted heart: [place] heart Associated angina: with unstable angina Qualified Code(s): I25.700 - Atherosclerosis of coronary artery bypass graft(s), unspecified, with unstable angina pectoris (4) CHF (congestive heart failure) Current Visit: Yes Status: Chronic Qualifiers: Heart failure type: systolic Heart failure chronicity: acute on chronic Qualified Code(s): I50.23 - Acute on chronic systolic (congestive) heart failure (5) Diabetes mellitus Current Visit: Yes Status: Chronic Qualifiers: Diabetes mellitus type: type 2 Diabetes mellitus prison insulin use: with prison use Diabetes mellitus complication status: with hyperglycemia Qualified Code(s): E11.65 - Type 2 diabetes mellitus with hyperglycemia; Z79.4 - intermission coordinator (current) use of insulin (6) Hyperlipidemia Current Visit: Yes Status: Chronic Qualifiers: Hyperlipidemia type: mixed hyperlipidemia Qualified Code(s): E78.2 - Mixed hyperlipidemia (7) Hypertension Current Visit: Yes Status: Chronic Qualifiers: Hypertension type: primary hypertension Qualified Code(s): I10 - Essential (primary) hypertension (8) Hypothyroidism Current Visit: Yes Status: Chronic Qualifiers: Hypothyroidism type: unspecified Qualified Code(s): E03.9 - Hypothyroidism, unspecified - Plan Patient is admitted for observation- ACS rule out/CHF excerbation. Initial troponin negative. Will trend, monitor on telemetry, cardiology consult in place. Continue home medications of lisinopril, spironolactone, atorvastatin, metoprolol, and eliquis. Aspirin daily. Morphine PRN pain. ACHS Accu-Chek, moderate sliding scale insulin. Diabetic diet Patient supposed to be on Lasix 40 mg BID but has been out of his medication. Chest CT showing moderately large bilateral pleural effusions. BNP elevated at 8300. IV lasix ordered. Monitor and replete electrolytes per protocol. Eliquis for VTE prophylaxis. Full code. Discharge Plan: Home Plan to discharge in: 24 Hours - Advance Directives Does patient have a Living Will: No Does patient have a Durable POA for Healthcare: No - Code Status/Comfort Care Code Status Assessed: Yes Code Status: Full Code Physician Review: Patient Assessed, Agree with Above Assessment and Plan Critical Care: No Time Spent Managing Pts Care (In Minutes): 50
[2022-06-03] MEDS ORDERED: ACETAMINOPHEN 500 MG TAB PO PRN (22:44)
[2022-06-03] MEDS: INSULIN -REGULAR HUMAN 50 UNIT/0.5 ML ML SQ SCH (22:44)
[2022-06-03] MEDS ORDERED: HYDROCODONE/APAP 7.5/325 MG TAB PO PRN (22:56)
[2022-06-03] MEDS: ATORVASTATIN 40 MG TAB PO SCH (23:25)
[2022-06-03] MEDS: FUROSEMIDE 40 MG/4 ML VIAL IV SCH (23:25)
[2022-06-04] MEDS: MORPHINE 4 MG/ML SYR IV PRN ×4 (00:29→14:00)
[2022-06-04 00:37] LABS: Barbiturates NEGATIVE (NEGATIVE); Benzodiazepines NEGATIVE (NEGATIVE); Cocaine NEGATIVE (NEGATIVE); METHAMPHETAM NEGATIVE (NEGATIVE); Methadone NEGATIVE (NEGATIVE); Opiates NEGATIVE (NEGATIVE); Phencyclidine NEGATIVE (NEGATIVE); THC Cannibis NEGATIVE (NEGATIVE)
[2022-06-04 00:38] LABS: Calcium Oxalate Crystals- Ur Few /HPF (None Seen); Specific Gravity > 1.030 (1.005-1.030); Urine Bacteria <20 /HPF (<20); Urine Bilirubin NEGATIVE (Negative); Urine Blood 2+ (Negative); Urine Clarity Clear (Clear); Urine Color Light-Yellow (Yellow); Urine Glucose NEGATIVE (Negative); Urine Mucus Slight /HPF (None Seen); Urine Protein 3+ (Negative); Urine Urobilinogen Normal (Normal)
[2022-06-04 07:22] LABS: Absolute Lymphocytes (CBC) 1.1 K/uL (0.7-4.9); Hematocrit 33.6 % (39.6-49.0); Lymphocytes % 21.4 % (15.3-44.8); MPV 7.2 fL (7.6-11.3); RBC Red Blood Cell Count 3.87 M/uL (4.33-5.43)
[2022-06-04] MEDS: INSULIN -REGULAR HUMAN 50 UNIT/0.5 ML ML SQ SCH ×4 (07:30→20:25)
[2022-06-04 07:50] LABS: Magnesium 2.1 mg/dL (1.6-2.4); Phosphorus 3.9 mg/dL (2.5-4.9); Potassium 4.4 mmol/L (3.5-5.1); Troponin High Sensitivity 37.8 pg/mL (<58.9)
[2022-06-04 08:02] LABS: Thyroid Stimulating Hormone 6.91 uIU/mL (0.358-3.740)
[2022-06-04] MEDS ORDERED: INFLUENZA VACCINE (for 6+ mo) 0.5 ML DOSE IMVAC ONE (10:00)
[2022-06-04] MEDS: FUROSEMIDE 40 MG/4 ML VIAL IV SCH ×2 (10:04→18:05)
[2022-06-04] MEDS: ASPIRIN EC 81 MG TAB PO SCH (10:05)
[2022-06-04] MEDS: ONDANSETRON 4 MG/2 ML VIAL IV PRN ×2 (10:05→15:25)
[2022-06-04] MEDS: ENOXAPARIN 40 MG/0.4 ML SQ SCH (10:06)
--- NOTE | 2022-06-04 14:52 | P.PN ---
Subjective Date of Service: 06/04/22 Chief Complaint: Chest Pain, CHF, SHOB Patient complaining of pain all over. He states his pain is mostly located in the back (scapular region), back of neck and lower rib cages. He is tolerating room air with good oxygen saturation. Physical Examination - Vital Signs Temperature: 96.8 F Blood Pressure: 131/76 Pulse: 78 Respirations: 18 Pulse Ox (%): 99 - Studies Laboratory Data (last 24 hrs) 06/03/22 18:55: PT 15.4 H, INR 1.40 06/03/22 18:55: WBC 5.50, Hgb 11.4 L, Hct 34.3 L, Plt Count 314 06/03/22 18:55: Sodium 144, Potassium 3.8, BUN 14, Creatinine 0.92, Glucose 106, Magnesium 2.0, Total Bilirubin 1.0, AST 13 L, ALT 16, Alkaline Phosphatase 162 H, Lipase 69 L Assessment And Plan - Current Problems (Diagnosis) (1) Bilateral pleural effusion Current Visit: Yes Status: Acute (2) Chest pain Current Visit: Yes Status: Acute Qualifiers: Chest pain type: unspecified Qualified Code(s): R07.9 - Chest pain, unspecified (3) CAD (coronary artery disease) Current Visit: Yes Status: Chronic Qualifiers: Coronary Disease-Associated Artery/Lesion type: bypass graft [place] vs. transplanted heart: [place] heart Associated angina: with unstable angina Qualified Code(s): I25.700 - Atherosclerosis of coronary artery bypass graft(s), unspecified, with unstable angina pectoris (4) Noncompliance with medication regimen Current Visit: Yes Status: Chronic (5) DM neuropathy, type II diabetes mellitus Onset Date: 11/08/17 Current Visit: No Status: Chronic Qualifiers: (6) Acute on chronic systolic heart failure Current Visit: Yes Status: Acute - Plan Physical Exam General: Alert, In no apparent distress Neck: Supple, No LAD, Without JVD or thyroid abnormality Respiratory: Mild bilateral crackles/rales Cardiovascular: Regular rate/rhythm, Normal S1 S2 Gastrointestinal: Normal bowel sounds, No tenderness Musculoskeletal: Tenderness bilateral scapular regions. Integumentary: No rashes, tattoos all over. Neurological: Normal speech, Normal affect. No focal motor deficit. Plan: Patient with bilateral moderate to large pleural effusion. Chest pain appears noncardiac and likely musculoskeletal. Troponin trended negative. Continue Lasix for CHF exacerbation and pleural effusion. Pain management as needed. Trial of muscle relaxant-flexeril. Continue gabapentin for neuropathy. Cardiology consulted. Patient with hemoglobin A1c of 6.4. Insulin sliding scale for glucose management.
[2022-06-04] MEDS ORDERED: CYCLOBENZAPRINE 10 MG TAB PO PRN (14:55)
[2022-06-04] MEDS: GABAPENTIN 400 MG CAP PO SCH (20:26)
[2022-06-04] MEDS: ATORVASTATIN 40 MG TAB PO SCH (20:27)
[2022-06-05] MEDS: MORPHINE 4 MG/ML SYR IV PRN ×4 (04:20→20:44)
[2022-06-05 05:50] VITALS: BMI 42.1
[2022-06-05] MEDS: INSULIN -REGULAR HUMAN 50 UNIT/0.5 ML ML SQ SCH ×4 (07:30→20:44)
[2022-06-05] MEDS: TAMSULOSIN 0.4 MG SR CAP PO SCH (08:02)
[2022-06-05] MEDS: ENOXAPARIN 40 MG/0.4 ML SQ SCH (08:02)
[2022-06-05] MEDS: SPIRONOLACTONE 25 MG TABLET PO SCH (08:02)
[2022-06-05] MEDS: ASPIRIN EC 81 MG TAB PO SCH (08:02)
[2022-06-05] MEDS: GABAPENTIN 400 MG CAP PO SCH ×2 (08:02→20:44)
[2022-06-05] MEDS: FUROSEMIDE 40 MG/4 ML VIAL IV SCH ×2 (08:03→16:19)
--- NOTE | 2022-06-05 14:24 | EKG ---
Test Date: 2022-06-03 Test Time: 19:24:51 Clinical Project Assistant: CARIDAD MEASUREMENT RESULTS: Intervals: Rate: 86 NM: QRSD: 168 QT: 454 QTc: 543 Branch: P: 47 NM: QRS: -41 T: 140 INTERPRETIVE STATEMENTS: Ventricular-paced rhythm Abnormal ECG Compared to ECG 03/02/2022 01:32:50 No significant changes Electronically Signed On 06-05-22 14:23:09 TIG WELDER by Luca Royal
--- NOTE | 2022-06-05 15:30 | P.PN ---
Subjective Date of Service: 06/05/22 Chief Complaint: Chest Pain, CHF, SHOB Patient has no new complaint. He is stable on room air. Physical Examination - Vital Signs Temperature: 97.4 F Blood Pressure: 110/70 Pulse: 74 Respirations: 16 Pulse Ox (%): 96 Assessment And Plan - Current Problems (Diagnosis) (1) Bilateral pleural effusion Current Visit: Yes Status: Acute (2) Chest pain Current Visit: Yes Status: Acute Qualifiers: Chest pain type: unspecified Qualified Code(s): R07.9 - Chest pain, unspecified (3) CAD (coronary artery disease) Current Visit: Yes Status: Chronic Qualifiers: Coronary Disease-Associated Artery/Lesion type: bypass graft [place] vs. transplanted heart: [place] heart Associated angina: with unstable angina Qualified Code(s): I25.700 - Atherosclerosis of coronary artery bypass graft(s), unspecified, with unstable angina pectoris (4) Noncompliance with medication regimen Current Visit: Yes Status: Chronic (5) DM neuropathy, type II diabetes mellitus Onset Date: 11/08/17 Current Visit: No Status: Chronic Qualifiers: (6) Acute on chronic systolic heart failure Current Visit: Yes Status: Acute - Plan Physical Exam General: Alert, In no apparent distress Neck: Supple, no elevated JVD Respiratory: Mild bilateral crackles/rales Cardiovascular: Regular rate/rhythm, Normal S1 S2 Gastrointestinal: Normal bowel sounds, No tenderness Musculoskeletal: Tenderness bilateral scapular regions. Anterior chest wall tenderness. Integumentary: No rashes, tattoos all over. Neurological: Normal speech, Normal affect. No focal motor deficit. Plan: Patient with bilateral moderate to large pleural effusion. Chest pain appears noncardiac and likely musculoskeletal. Troponin trended negative. Continue Lasix for CHF exacerbation and pleural effusion. Pain management as needed. Continue flexeril, continue gabapentin for neuropathy. Patient with hemoglobin A1c of 6.4. Insulin sliding scale for glucose management.
[2022-06-05] MEDS: ATORVASTATIN 40 MG TAB PO SCH (20:44)
[2022-06-06 03:57] LABS: Absolute Lymphocytes (CBC) 1.2 K/uL (0.7-4.9); Hematocrit 33.6 % (39.6-49.0); MCV 87.2 fL (80-100); MPV 7.7 fL (7.6-11.3); RBC Red Blood Cell Count 3.85 M/uL (4.33-5.43)
[2022-06-06 04:29] LABS: Potassium 4.9 mmol/L (3.5-5.1)
[2022-06-06] MEDS: MORPHINE 4 MG/ML SYR IV PRN ×3 (04:40→13:42)
[2022-06-06] MEDS: INSULIN -REGULAR HUMAN 50 UNIT/0.5 ML ML SQ SCH ×3 (07:30→16:30)
[2022-06-06] MEDS: ENOXAPARIN 40 MG/0.4 ML SQ SCH (08:02)
[2022-06-06] MEDS: GABAPENTIN 400 MG CAP PO SCH (08:03)
[2022-06-06] MEDS: ASPIRIN EC 81 MG TAB PO SCH (08:03)
[2022-06-06] MEDS: TAMSULOSIN 0.4 MG SR CAP PO SCH (08:03)
[2022-06-06] MEDS: SPIRONOLACTONE 25 MG TABLET PO SCH (08:03)
[2022-06-06] MEDS: FUROSEMIDE 40 MG/4 ML VIAL IV SCH ×2 (08:03→16:54)
[2022-06-06 12:17] VITALS: O2SAT 94
--- NOTE | 2022-06-06 14:37 | P.DS ---
Admission Date: 06/05/22 Discharge Date: 06/06/22 Disposition: ROUTINE DISCHARGE Discharge Condition: FAIR Reason for Admission: Chest Pain, CHF, SHOB - Problems (1) Bilateral pleural effusion Current Visit: Yes Status: Acute (2) Chest pain Current Visit: Yes Status: Acute Qualifiers: Chest pain type: unspecified Qualified Code(s): R07.9 - Chest pain, unspecified (3) CAD (coronary artery disease) Current Visit: Yes Status: Chronic Qualifiers: Coronary Disease-Associated Artery/Lesion type: bypass graft [place] vs. transplanted heart: [place] heart Associated angina: with unstable angina Qualified Code(s): I25.700 - Atherosclerosis of coronary artery bypass graft(s), unspecified, with unstable angina pectoris (4) Noncompliance with medication regimen Current Visit: Yes Status: Chronic (5) DM neuropathy, type II diabetes mellitus Onset Date: 11/08/17 Current Visit: No Status: Chronic Qualifiers: (6) Acute on chronic systolic heart failure Current Visit: Yes Status: Acute Brief History of Present Illness: Patient is a 62-year-old male with history of CAD s/p CABG with pacemaker/defibrillator, afib on eliquis, hypertension, hyperlipidemia, IDDM, hypothyroidism, and systolic CHF who presented to the ED via EMS with complaints of chest pain. He has had several cardiac works ups, found to have an EF of 23% with severe global hypokinesis and mild pulmonary hypertension, and has life vest. Cardiology has recommended outpatient stress test, echocardiogram, and lower extremity arterial Doppler. Patient does not take his medications because he states that he cannot afford them. EKG without acute changes. Troponin WNL. BNP is elevated at [address] chest showing moderate to large bilateral pleural effusions. Patient admitted for further management. Hospital Course: Troponin trended negative. ACS ruled out. Patient was complaining of generalized bodily pain, including pain in bilateral scapular regions of the back which was managed with opioid. Patient chest pain is likely musculoskeletal. Pleural effusion was treated with IV. Repeat chest x-ray shows improvement. His oxygen saturation has been stable on room air. Patient seen by cardiology who recommended outpatient stress test. Vital signs stable for discharge. Vital Signs/Physical Exam: Temp Pulse Resp BP Pulse Ox 97.6 F 74 17 103/60 91 06/06/22 12:00 06/06/22 12:00 06/06/22 13:42 06/06/22 12:00 06/06/22 13:42 General: Alert, In no apparent distress, Oriented x3 HEENT: Mucous membr. moist/pink Neck: JVD not distended Respiratory: Normal air movement Cardiovascular: Regular rate/rhythm, Normal S1 S2 Gastrointestinal: Soft and benign, Non-distended Musculoskeletal: No swelling Integumentary: No cyanosis Neurological: Normal strength at 5/5 x4 extr Laboratory Data at Discharge: WBC 6.10 K/uL (4.3-10.9) 06/06/22 03:45 Hgb 11.1 g/dL (13.6-17.9) L 06/06/22 03:45 Hct 33.6 % (39.6-49.0) L 06/06/22 03:45 Plt Count 235 K/uL (152-406) 06/06/22 03:45 PT 15.4 SECONDS (9.5-12.5) H 06/03/22 18:55 INR 1.40 06/03/22 18:55 Sodium 140 mmol/L (136-145) 06/06/22 03:45 Potassium 4.9 mmol/L (3.5-5.1) 06/06/22 03:45 BUN 24 mg/dL (7-18) H 06/06/22 03:45 Creatinine 1.29 mg/dL (0.70-1.30) 06/06/22 03:45 Glucose 94 mg/dL (74-106) 06/06/22 03:45 Phosphorus 3.9 mg/dL (2.5-4.9) 06/04/22 06:40 Magnesium 2.1 mg/dL (1.6-2.4) 06/04/22 06:40 Total Bilirubin 1.0 mg/dL (0.2-1.0) 06/03/22 18:55 AST 13 U/L (15-37) L 06/03/22 18:55 ALT 16 U/L (16-61) 06/03/22 18:55 Alkaline Phosphatase 162 U/L (45-117) H 06/03/22 18:55 Triglycerides 79 mg/dL (<150) 06/04/22 06:40 Cholesterol 161 mg/dL (<200) 06/04/22 06:40 HDL Cholesterol 35 mg/dL (40-60) L 06/04/22 06:40 Cholesterol/HDL Ratio 4.60 06/04/22 06:40 Lipase 69 U/L (73-393) L 06/03/22 18:55 Home Medications: Dicyclomine [Bentyl*] 20 mg PO QID 12/21/21 Apixaban [Eliquis] 5 mg PO BID #60 tab 06/05/22 Aspirin Chewable [Aspirin Chewable*] 81 mg PO DAILY #30 tab.chew 06/05/22 Atorvastatin Calcium [Lipitor] 40 mg PO BEDTIME #30 tab 06/05/22 Cyclobenzaprine [Flexeril*] 10 mg PO BID PRN #30 tab 06/05/22 Docusate Sodium 100 mg PO DAILY #30 cap 06/05/22 Furosemide 40 mg PO BID #60 tab 06/05/22 Gabapentin 800 mg PO BID #60 tab 06/05/22 Hydrocodone 5/APAP 325 [[place] 5/325*] 1 tab PO Q4H PRN #12 tab 06/05/22 Levothyroxine [Synthroid] 50 mcg PO [id number] #30 tab 06/05/22 Metformin HCl 500 mg PO DAILY #30 tab 06/05/22 Metoprolol Succinate 0.5 tab PO DAILY 30 Days #30 tab 06/05/22 Omeprazole 20 mg PO DAILY #30 cap 06/05/22 Spironolactone 25 mg PO DAILY #30 tab 06/05/22 Tamsulosin [Flomax*] 0.4 mg PO DAILY #30 cap 06/05/22 Venlafaxine HCl 75 mg PO BID #60 tab 06/05/22 lisinopriL [Lisinopril] 2.5 mg PO DAILY #30 tab 06/05/22 New Medications: Aspirin Chewable [Aspirin Chewable*] 81 mg PO DAILY #30 tab.chew Docusate Sodium 100 mg PO DAILY #30 cap Apixaban [Eliquis] 5 mg PO BID #60 tab Cyclobenzaprine [Flexeril*] 10 mg PO BID PRN #30 tab PRN Reason: Muscle Spasms Tamsulosin [Flomax*] 0.4 mg PO DAILY #30 cap Furosemide 40 mg PO BID #60 tab Gabapentin 800 mg PO BID #60 tab Atorvastatin Calcium [Lipitor] 40 mg PO BEDTIME #30 tab lisinopriL [Lisinopril] 2.5 mg PO DAILY #30 tab Metformin HCl 500 mg PO DAILY #30 tab Metoprolol Succinate 0.5 tab PO DAILY 30 Days #30 tab Hydrocodone 5/APAP 325 [[place] 5/325*] 1 tab PO Q4H PRN #12 tab PRN Reason: Pain Scale 5-7 (Moderate) Omeprazole 20 mg PO DAILY #30 cap Spironolactone 25 mg PO DAILY #30 tab Levothyroxine [Synthroid] 50 mcg PO [id number] #30 tab Venlafaxine HCl 75 mg PO BID #60 tab Diet: ADA Activity: Ad nafisa Followup: Luca Royal MD [ACTIVE - CAN ADMIT] - 1-2 Weeks Time spent managing pt's care (in minutes): 35
--- NOTE | 2022-06-06 14:57 | RAD REPORT ---
EXAM DESCRIPTION: RAD - Chest Single View - 06/06/2022 1:58 pm CLINICAL HISTORY: Follow up pleural effusion Chest pain. COMPARISON: Chest Single View dated 03/02/2022; Chest Single View dated 02/21/2022; Chest Single View dated 02/09/2022; Chest Single View dated 02/04/2022 FINDINGS: Portable technique limits examination quality. Moderate pulmonary edema. Small left pleural effusion. The heart is moderately large with sternotomy wires present. Dual lead pacer device. IMPRESSION: Moderate CHF versus volume overload pattern.
[2022-06-06 16:15] VITALS: BP 121/79; TEMP 98
--- NOTE | 2022-06-06 17:35 | CON ---
Date of Consultation: 06/06/2022 Reason For Consultation: Chest pain. History Of Present Illness: This is a 62-year-old male with known history of coronary artery disease , status post CABG, ICD in place, severe systolic heart failure, atrial fibrillation, hypertension, d yslipidemia, and diabetes, who presented to the emergency room with chest pain. 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 Chest pain is retrosternal, not related t o exertion, sharp in nature. No radiation. Past Medical History: As outlined above in the HPI. Medications: Refer to reconciliation sheet for detailed list. Allergies: HYDROCODONE. Family History: No premature coronary artery disease or cancer. Social History: He is an active smoker. Does not drink. Does not use any drugs. Review of Systems: All systems reviewed and they were negative except what mentioned in HPI. Physical Examination: Vital Signs: Temperature is 98.0, pulse 90, breathing at 17, blood pressure is 121/79, saturating 93 % on room air. General: Pleasant, middle-aged male, in no apparent distress. Head and Neck: Pupils are equal, reactive to light. Intact eye movements. No JVD. No cervical lym phadenopathy. Neck is supple. Thyroid is not enlarged. Lungs: Clear to auscultation bilaterally. No rhonchi, wheezing, or crackles. No accessory muscle u se. Heart: Regular rate and rhythm. No extra sounds. Abdomen: Soft, nontender. Bowel sounds positive. No organomegaly. No masses or hernia. No rigidi ty or rebound. Extremities: No edema, clubbing, or cyanosis. Intact pulses. Skin: No rash. Neurologic: Alert, awake, oriented x3. No acute focal deficits appreciated. Investigations: BUN 24, creatinine 1.29, hemoglobin 11.1. The troponins x3 are negative. Assessment And Recommendations: 1.Chest pain. No acute changes in EKG. The cardiac enzymes are negative. Pain is atypical, nonexe rtional. The patient is known to have coronary artery disease, status post coronary artery bypass gr aft. I recommend outpatient exercise nuclear stress test. 2.Severe systolic heart failure. Ejection fraction is around 30% by EF. Known to have ischemic car diomyopathy. Has ICD in place. Recommend to start him on guideline-directed medical therapy for con gestive heart failure including Entresto and beta-ulises. May be while in the hospital, I can intro duce Toprol-XL 25 mg daily and then adjust the doses on outpatient basis and then use Entresto as wel l on an outpatient basis. We will plan for outpatient exercise nuclear stress test. /MODL Voice ID: [id number] Report ID: [id number]
--- NOTE | 2022-06-07 06:51 | ECHO ---
HEIGHT: 4 ft 7 in WEIGHT: 181 lb 4.8 oz DATE OF STUDY: 06/06/[address]: Alf Rios MD 2-DIMENSIONAL: YES M.MODE: YES DOPPLER: YES COLOR FLOW: YES TDS: YES PORTABLE: YES DEFINITY: BUBBLE STUDY: DIAGNOSIS: CARDIAC HISTORY: CATHERIZATION: YES SURGERY: YES PROSTHETIC VALVE: NO PACEMAKER: YES MEASUREMENTS (cm) DIASTOLIC (NORMALS) SYSTOLIC (NORMALS) IVSd 1.1 (0.6-1.2) LA Diam 3.6 (1.9-4.0) LVEF 30-35% LVIDd 4.4 (3.5-5.7) LVIDs 3.4 (2.0-3.5) %FS 23% LVPWd 1.2 (0.6-1.2) Ao Diam 2.7 (2.0-3.7) 2 DIMENSIONAL ASSESSMENT: RIGHT ATRIUM: NORMAL LEFT ATRIUM: NORMAL RIGHT VENTRICLE: NORMAL LEFT VENTRICLE: DEPRESSED EJECTION FRACTION TRICUSPID VALVE: MILD TRICUSPID REGURGITATION MITRAL VALVE: MILD MITRAL REGURGITATION PULMONIC VALVE: NORMAL AORTIC VALVE: NORMAL PERICARDIAL EFFUSION: NONE AORTIC ROOT: NORMAL LEFT VENTRICULAR WALL MOTION: ANTEROSEPTAL/ APICAL/ ANTERIOR HYPOKINESIS DOPPLER/COLOR FLOW: SEE BELOW COMMENTS: 1. MODERATELY DEPRESSED LEFT VENTRICULAR EJECTION FRACTION 30-35% 2. WALL MOTION ABNORMALITIES ABOVE 3. MILD TRICUSPID REGURGITATION/ MILD MITRAL REGURGITATION 4. POOR WINDOWS TECHNOLOGIST: ESTELLE GOODSON
--- NOTE | 2022-06-07 10:23 | CON ---
Date of Consultation: 06/04/2022 Reason For Consultation: Atypical chest pain, congestive heart failure. History Of Present Illness: The patient is 62. Has a history of pacemaker, atrial fibrillation, hyp ertension, dyslipidemia, congestive heart failure, hypothyroidism. He comes in with CHF, atypical ch est pain. The patient is known to have a heart catheterization in January [address] Keenan. At that time, he had stents in multiple vessels, all of that were open. Echocardiogram in December 2021 s howed an ejection fraction of 33%. He complained of PND, orthopnea, pedal edema, and chest pressure. His pressure was nonexertional and would last about 5 minutes. Past Medical History: As stated above. Allergies: INCLUDE HYDROCODONE. Review of Systems: Negative. Social History: Negative. Family History: Negative. Medications: At home include aspirin, Eliquis, Lipitor, Aldactone, lisinopril, Lasix, Synthroid, met oprolol, and metformin. Physical Examination: General: He was in no acute distress. He was in a paced rhythm. HEENT: Negative. Neck: Supple with no bruit, lymphadenopathy, JVD, or thyromegaly. Chest: Reveals crackles both bases. Cardiac: Revealed a regular rhythm and rate with S3 gallops. No murmurs or rubs. Abdomen: Benign. Extremities: Revealed trace edema. Diagnostic Data: Showed a paced rhythm. He had a normal creatinine. His BNP was 8368. Chest x-ray showed mild CHF. EKG showed paced rhythm. Impression And Plan: 1.Acute on chronic systolic congestive heart failure. 2.Chest pain probably secondary to small vessels. Recent stents were open by catheterization into [place] [facility] 2021. No need for another catheterization. I think we need to put him on Ranexa 500 b.i.d. in addition to his medications. His other problems include pacemaker that is functioning [facility]. He also has dyslipidemia, hypothyroidism, hypertension, and diabetes. All those problems are c ontrolled. Whenever he goes home, we will be happy to see him in the office in the near future. GEOFF/MULUL Voice ID: [id number] Report ID: [id number]
== END 2022-06-06 18:15 | disposition home or self-care (01) | DRG 291 ==
LOC: ER 18:19 → 4TH 21:00 → OBSVTOIN 06-05 10:56
PROVIDERS: ADMIT Internal Medicine; ATTEND Internal Medicine
PROC: 5A09457 Assistance with Respiratory Ventilation, 24-96 Consecutive Hours, Continuous Positive Airway Pressure (ICD-10-PCS; principal; 2022-06-03)
DX: I11.0 Hypertensive heart disease with heart failure (principal); I50.23 Acute on chronic systolic (congestive) heart failure; E03.9 Hypothyroidism, unspecified; E78.5 Hyperlipidemia, unspecified; K21.9 Gastro-esophageal reflux disease without esophagitis; E11.65 Type 2 diabetes mellitus with hyperglycemia; E11.40 Type 2 diabetes mellitus with diabetic neuropathy, unspecified; M79.7 Fibromyalgia; I27.20 Pulmonary hypertension, unspecified; I48.91 Unspecified atrial fibrillation; I25.700 Atherosclerosis of coronary artery bypass graft(s), unspecified, with unstable angina pectoris; F17.200 Nicotine dependence, unspecified, uncomplicated; I25.2 Old myocardial infarction; Z95.1 Presence of aortocoronary bypass graft; Z79.4 Long term (current) use of insulin; Z79.84 Long term (current) use of oral hypoglycemic drugs; Z86.73 Personal history of transient ischemic attack (TIA), and cerebral infarction without residual deficits; Z79.01 Long term (current) use of anticoagulants; Z91.14 Patient's other noncompliance with medication regimen; Z90.49 Acquired absence of other specified parts of digestive tract; Z79.82 Long term (current) use of aspirin; Z89.512 Acquired absence of left leg below knee; Z89.511 Acquired absence of right leg below knee; Z95.810 Presence of automatic (implantable) cardiac defibrillator; Z79.899 Other long term (current) drug therapy; Z79.890 Hormone replacement therapy; Z20.822 Contact with and (suspected) exposure to COVID-19
CPT/HCPCS: 36415; 71045; 71275; 74177; 80048; 80061; 80076; 80307; 81001; 82140; 82947; 83036; 83690; 83735; 83880; 84100; 84439; 84443; 84484; 85025; 85610; 86850; 86900; 86901; 87811; 93005; 93306; 94660; 94760; 96374; 96375; 99285; G0378; J1650; J1940; J2270; J2405; J7030; Q9967

== ENCOUNTER 2022-06-19 10:29 | Emergency (ER) | payer OTHER ==
--- OUTSIDE RECORDS SUMMARY | 2022-06-19 10:38 | XMS REPORT | Continuity of Care Document ---
:1960 Author Organization [facility] t Address [address] [place] [address] Care Team Providers Name Role Phone MONIKA HALL MD Primary Care Physician [id number] Attending Clinician Unavailable Harshal Zhu Attending Clinician Unavailable Finn Shah Attending Clinician Unavailable Doctor Unassigned, [place] Attending Clinician Unavailable Josselyn Harding RN Attending Clinician Unavailable MARTHA ROWE Attending Clinician Unavailable Ana Maria Meza DO Attending Clinician Martha Rowe MD Attending Clinician rToy KU Attending Clinician Unavailable Troy Wahl Attending [...] Capri SCRUGGS, Marcella Wynn Attending Clinician Unavailable Brandyn Dumont ENP Attending Clinician Liz HALL, Geoffrey Attending Clinician GEOFFREY HILL Attending Clinician Unavailable [facility] Attending Clinician Unavailable AMBIKA FERNANDEZ Attending Clinician Unavailable Rebecca HALL, Ambika Attending Clinician ALECIA FULTON Attending Clinician Unavailable [...] Attending Clinician Alis Garcia MD Attending Clinician [phone] Kaylyn Calvin MD Attending Clinician Tha Gunter [...] Attending Clinician Golden HALL, Stephanie Attending Clinician NIFNA CASTILLO K.H. Attending Clinician Unavailable Marcus HALL, [...] Unavailable Casper RAE, Michael Gaxiola Attending Clinician [phone] Nova RAE, Cortney Law Attending Clinician [phone] Emy SCRUGGS, Rhonda Attending Clinician Dennis Finley MD Attending Clinician Carlos Allen MD Attending Clinician ALEXIS COX Attending Clinician Unavailable JACQUELYN MONTES DE OCA Attending Clinician Unavailable NICHELLE PALACIOS Attending Clinician Unavailable [id number] Admitting Clinician Unavailable Nika Martin Admitting Clinician [...] Unavailable Ana Maria Meza DO Admitting Clinician Geoffrey Hill MD Admitting Clinician GEOFFREY HILL Admitting Clinician Unavailable Wong_H Admitting Clinician Unavailable AMBIKA FERNANDEZ Admitting Clinician Unavailable Ambika Fernandez MD Admitting Clinician Fede Carrera Admitting Clinician Unavailable Johnie Montanez Admitting Clinician Unavailable Drew Noriega MD Admitting Clinician DREW NORIEGA Admitting Clinician Unavailable Lisa Marroquin MD Admitting Clinician Jose Shearer MD Admitting Clinician Heather Hermosillo MD Admitting Clinician VALERY CARRILLO Admitting Clinician Unavailable DEMACRUS REEVES Admitting Clinician Unavailable Kendra Vaca MD Admitting Clinician KENDRA VACA Admitting Clinician Unavailable MICHAEL SHIRLEY Admitting Clinician Unavailable Michael Hernandez Admitting Clinician [phone] Malia HALL Dennis Arreola Admitting Clinician ALEXIS COX Admitting Clinician Unavailable NICHELLE PALACIOS Admitting Clinician Unavailable Payers Payer Name Policy Type Policy Number Effective Date Expiration Date Sujit daugherty [facility] [id number] [employer] [id number] 2018spring 00:00:00 [employer] [id number] 2004 [facility] [...] Added automatic ally from request for surgery [id number] Troponin I Troponin I Disease Active 2020-0 [...] 00:00: [place] involving involving 00 Medi [facility] [facility] 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 Type 2 Type 2 Disease Active 2019 Univers diabetes diabetes 8-29 ity of mellitus mellitus 00:00: [place] without without 00 Medical complicati complicati Br anch on, on, without without long-term long-term current current use of use of insulin insulin Essential Essential Disease Active Uni vers hypertensi hypertensi 01-17 it y of on on 00:00: [place] [address] Medical Branch Other Other Disease Active Univers hyperlipid hyperlipid 01-17 it y of emia emia 00:00: [place] [address] Medical Branch Stroke Stroke Disease Active Univers 5-12 ity of 00:00: [place] [facility] Left-sided Left-sided Disease Active U nivers weakness weakness - ity of 00:00: [place] [facility] Left sided Left sided Disease Active U nivers numbness numbness 5- ity of 00:00: [place] 00 Medical Branch S/P admn S/P admn [...] rs angina angina 4-10 ity of 00:00: [place] [facility] Atypical Atypical Disease Active Unive rs chest pain chest pain 2-22 it y of 00:00: [place] [address] Medical Branch Chest pain Chest pain Problem [facility] Coronary CAD Problem Active [facility] artery (coronary [facility] disease artery Patient disease) [facility] Diabetic DKA Problem Active [facility] ketoacidos (diabetic Esme es is ketoacidos Patien t es) [facility] Hyperglyce Hyperglyce Problem Active [facility]ambi [facility]i [facility] Hypertensi Hypertensi Problem Active [facility] on on [facility] Pancreatit Pancreatit Problem Active [facility] is is [facility] Uncontroll Uncontroll Problem Active [facility] diabetes diabetes Patien t mellitus mellitus [facility] Allergies, Adverse Reactions, Alerts Allergy Allergy Status Severity Reaction(s) Onset Inactive Treating Comm ents Source Name Type Date Date Clinician No Known DA Active U [facility] [place] [facility]: d 00 [facility] No Known DA Active U [facility]ergie 3- [place] [facility] 00:[facility]: d 00 [facility] No Known DA Active U 2017-05 [facility] All[facility]ie 2-31 [facility] s 00:00: Mejia 00 [facility] No Known DA Active U 2017-05 [facility] Allergie 2-31 Clear s 00:00: Mejia 00 [facility] No Known DA Active U [facility] 3- [place] [facility] 00:[facility]: e 00 [facility] NO KNOWN Drug Active Univers ALLERGIE Class ity of S [place] [facility] Social History Social Habit Start Date Stop Date Quantity Comments Source History of Passive smoker University of tobacco use [place] [facility] History SDOH University o f Alcohol Frequency [place] M edical [facility] History SDOH University o f Alcohol Std [place] Medical Drinks Branch History SDOH University o f Alcohol Binge [place] Medic al Branch History SDOH Food 2022-02-11 2022-02-11 1 Univers ity of Worry 00:00:00 00:00:00 [place] [facility] History SDOH Food 2022-02-11 2022-02-11 1 Univers ity of Scarcity 00:00:00 00:00:00 [place] [facility] History SDOH 2022-02-11 2022-02-11 2 University o f Transport Med 00:00:00 00:00:00 [place] Medic al Branch History SDOH 2022-02-11 2022-02-11 2 University o f Transport Non-Med 00:00:00 00:00:00 [place] M edical Branch Exposure to 2022-01-30 2022-02-09 Not sure University of SARS-CoV-2 00:00:00 20:09:00 [place] Medical (event) Branch Tobacco use and 2022-02-09 2022-02-09 Smokeless tobacco Un iversity of exposure 00:00:00 00:00:00 non-user [place] [facility] Alcohol intake 2022-02-09 2022-02-09 1.71 /d University of 00:00:00 00:00:00 [facility] Tobacco Comment 2022-02-09 2022-02-09 quit 15 years ago Un iversity of 00:00:00 00:00:00 [facility] Education 2021-10-27 2021-10-27 9 University of 00:00:00 00:00:00 [facility] History SDOH 2020-03-16 2020-03-16 3 University o f Financial 00:00:00 00:00:00 [facility] Alcohol Comment 2019-07-18 2019-07-18 quit drinking Univvish sitvashti of 00:00:00 00:00:00 2013 but drank [facility] heavily before Branch this Sex Ass[birth year] At [birth year] LUCY Sanders 00:00:00 00:00:00 [facility] Center Smoking Status Start Date Stop Date Source Ex-smoker 2022-02-09 00:00:00 2022-02-09 00:00:[address] [facility] Medications Ordered Filled Start Stop Current Ordering Indication Dosage Frequency Signature Comments Components Source Medication Medication Date Date Medication? Clinician (SIG) Name Name aspirin 81 2021- No [id number] 81mg Take 1 Univers mg chewable 9-23 10-24 tablet by it y of tablet 00:00: 04:59 mouth [place] 00 :00 daily with Medical breakfast Branch for 30 days. glipiZIDE 5 2021- No [id number] 5mg Take 1 Univers mg tablet 9-23 10-24 tablet by ity of 00:00: 04:59 mouth in [place] 00 :00 the Medical morning Branch for 30 days. levothyroxi 2021- No [id number] 50ug Take 1 Univers ne 50 mcg 9-23 10-24 tablet by ity of tablet 00:00: 04:59 mouth [place] 00 :00 every Medical morning Branch for 30 days. lisinopriL 2021- No [id number] 2.5mg Take 1 Univers 2.5 mg 9-23 10-24 tablet by ity of tablet 00:00: 04:59 mouth in [place] 00 :00 the Medical morning Branch for 30 days. spironolact 2021- No [id number] 25mg Take 1 Univers one 25 mg 9-23 10-24 tablet by ity of tablet 00:00: 04:59 mouth in [place] 00 :00 the Medical morning [facility] for 30 days. tamsulosin 2021- No [id number] .4mg Take 1 Univers 0.4 mg 24 9-23 10-24 capsule by ity of hr capsule 00:00: 04:[address] [facility] 00 :00 the Medical morning Branch for 30 days. aspirin 81 2021-2021- No [id number] 81mg Take 1 Univers mg chewable 9-23 10-24 tablet by it y of tablet 00:00: 04:59 mouth [place] 00 :00 daily with [facility] breakfast Branch for 30 days. glipiZIDE 5 2021- No [id number] 5mg Take 1 Univers mg tablet 9- 10-24 tablet by ity of 00:00: 04:59 mouth in [place] 00 :00 the [facility] morning [place] for 30 days. levothyroxi 2021- No [id number] 50ug Take 1 Univers ne 50 mcg 9-23 10-24 tablet by ity of tablet 00:00: 04:59 mouth [place] 00 :00 every [facility] morning [place] for 30 days. lisinopriL 2021- No [id number] 2.5mg Take 1 Univers 2.5 mg 9-23 10-24 tablet by ity of tablet 00:00: 04:59 mouth in [place] 00 :00 the [facility] for 30 days. spironolact 2021- No [id number] 25mg Take 1 Univers one 25 mg 9-23 10-24 tablet by ity of tablet 00:00: 04:59 mouth in [place] 00 :00 the [facility] for 30 days. tamsulosin 2021- No [id number] .4mg Take 1 Univers 0.4 mg 24 9-23 10-24 capsule by ity of hr capsule 00:00: 04:[address] [facility] 00 :00 the [facility] morning [place] for 30 days. sulfur 2021- No [id number] 5mL 5 mL, Unive rs hexafluorid 02-10 Intravenou i ty of e microsphr 16:30: 16:30 s, ONCE, 1 [place] (LUMASON) 00 :00 dose, On Medica l injection 5 [place] Branch mL 02/10/22 at 1130, Routine
membership manager approving Restricted medication : NINFA CASTILLO K.H. traMADoL 2021-0 Yes 50mg 50 mg, Univers (ULTRAM) 02-10 Oral, ity of tablet 50 15:10: Q6HPRN, [place] mg 57 Starting Medical on [facility] Branch 02/10/22 at 1010, Until Discontinu ed, Routine, Pain (scale 7-10) lisinopriL 0 Yes 2.5mg 2.5 mg, Uni vers (PRINIVIL,Z 02-10 Oral, ity of ESTRIL) 14:00: DAILY, [place] tablet 2.5 00 First dose Med ical mg on [facility] Branch 02/10/22 at 0900, Until Discontinu ed, Routine glipiZIDE 0 Yes 5mg 5 mg, Univers (GLUCOTROL) 02-10 Oral, ity of tablet 5 mg 14:00: DAILY, [place] 00 First dose Medical on [facility] Branch 02/10/22 at 0900, Until Discontinu ed, Routine enoxaparin 0 Yes 30mg 30 mg, Unive rs (LOVENOX) 02-10 Subcutaneo ity of injection 14:00: [place], DAILY, [place] 30 mg 00 First dose Medical on [facility] Branch 02/10/22 at 0900, Until Discontinu ed, Routine levothyroxi Yes 50ug 50 mcg, Uni vers ne 02-10 Oral, ity of (SYNTHROID) 11:00: QAM-0600, [place] tablet 50 00 First dose Medi uriel mcg on [facility] Branch 02/10/22 at 0600, Until Discontinu ed, Routine morpHINE (2 2021- No 2mg 2 mg, Slow Univers mg/mL) 02-10 IV Push, ity of injection 2 08:45: 08:01 ONCE, 1 [place] mg 00 :00 dose, On [facility] 02/10/22 at 0345, Routine furosemide 0 Yes [...] dose [place] mg 00 on Mon [facility] 02/09/22 at Branch 2315, Until Discontinu [...] First dose Med ical 12.5 mg on [facility] 02/09/22 at 2315, Until Discontinu ed, Routine tamsulosin 2021-0 Yes .4mg 0.4 mg, Univ ers (FLOMAX) 02-10 Oral, ity of capsule 0.4 04:15: DAILY, [place] mg 00 First dose Medical on [facility] Branch 02/09/22 at 2315, Until Discontinu ed, Routine gabapentin 2021-0 Yes 300mg 300 mg, Uni vers (NEURONTIN) 02-10 Oral, BID, it y of capsule 300 04:15: First dose [place] mg 00 on Mon [facility] 02/09/22 at Branch 2315, Until Discontinu ed, Routine sennosides 2021-0 Yes 8.6mg 8.6 mg, Uni vers (SENOKOT) 02-10 Oral, BID, ity of tablet 8.6 04:15: First dose [place] mg 00 on Mon [facility] 02/09/22 at Branch 2315, Until Discontinu ed, Routine docusate 2021-0 Yes 100mg 100 mg, Unive rs (COLACE) 02-10 Oral, BID, ity o f capsule 100 04:15: First dose [place] mg 00 on Mon [facility] 02/09/22 at Branch 2315, Until Discontinu [...] IV ity of (D50W) 04:01: Push, PRN, [place] injection 56 Starting Medica l 25 mL on Wed Branch 02/09/22 at 2301, Until Discontinu ed, PIERRE, Blood Glucose < or = 70 mg/dL and patient is unable to swallow or has mental status changes. atorvastati 2021- No [id number] 40mg Take 1 Univers n 40 mg - 10-23 tablet by ity of tablet 00:00: 04:59 mouth at [place] 00 :00 bedtime Medical for 30 Branch days. metoprolol 2021- No [id number] 12.5mg Take 0.5 Univers succinate 9- 10-23 tablets by ity of XL 25 mg 24 00:00: 04:59 mouth in [place] hr tablet 00 :00 the Medical morning Branch for 30 days. atorvastati 2021- No [id number] 40mg Take 1 Univers n 40 mg -22 10-23 tablet by ity of tablet 00:00: 04:59 mouth at [place] 00 :00 bedtime Medical for 30 Branch days. metoprolol 2021- No [id number] 12.5mg Take 0.5 Univers succinate 02-1023 tablets [...] at 0215, 1 mL gabapentin 2021- No [id number] 300mg Take 1 Univers 300 mg 11-05 capsule by ity of capsule 00:00: 04:59 mouth 3 [place] 00 :00 (three) Medical times Branch daily for 10 days. gabapentin 2021- No [id number] 300mg Take 1 Univers 300 mg 11-05 capsule by ity of capsule 00:00: 04:59 mouth 3 [place] 00 :00 (three) Medical times Branch daily for 10 days. aspirin 81 2021- No [id number] 81mg Take 1 Univers mg chewable 6-16 07-17 tablet by it y of tablet 00:00: 04:59 mouth [place] 00 :00 daily for Medical 30 days. [place] aspirin 81 2021- No [id number] 81mg Take 1 Univers mg chewable 6-16 07-17 tablet by it y of tablet 00:00: 04:59 mouth [place] 00 :00 daily for Medical 30 days. Branch aspirin 81 2021- No [id number] 81mg Take 1 Univers mg chewable 6-16 07-17 tablet by it y of tablet 00:00: 04:59 mouth [place] 00 :00 daily for Medical 30 days. [place] proMETHazin Yes [id number] 25mg Take 1 Univers e 25 mg 6-03 tablet by ity of tablet 00:00: mouth [place] 00 every 6 Medical (six) Branch hours as needed for Nausea and Vomiting (N/V). proMETHazin Yes [id number] 25mg Take 1 Univers e 25 mg 6-03 tablet by ity of tablet 00:00: mouth [place] 00 every 6 Medical (six) Branch hours as needed for Nausea and Vomiting (N/V). proMETHazin 2021-0 Yes [id number] 25mg Take 1 Univers e 25 mg 6-03 tablet by ity of tablet 00:00: mouth [place] 00 every 6 Medical (six) Branch hours as needed for Nausea and Vomiting (N/V). proMETHazin 2021-0 Yes [id number] 25mg Take 1 Univers e 25 mg 6-03 tablet by ity of tablet 00:00: mouth [place] 00 every 6 Medical (six) Branch hours as needed for Nausea and Vomiting (N/V). proMETHazin 2021-0 Yes [id number] 25mg Take 1 Univers e 25 mg 6-03 tablet by ity of tablet 00:00: mouth [place] 00 every 6 Medical (six) Branch hours as needed for Nausea and Vomiting (N/V). proMETHazin 2021-0 Yes [id number] 25mg Take 1 Univers e 25 mg 6-03 tablet by ity of tablet 00:00: mouth [place] 00 every 6 Medical (six) Branch hours as needed for Nausea and Vomiting (N/V). fenofibrate 2021- No [id number] 134mg Take 1 Univers micronized -19 12- capsule by it y of 134 mg 00:00: 04:59 mouth [place] capsule 00 :00 daily for Medical 30 days. Branch lisinopriL 2021- No [id number] 2.5mg Take 1 Univers 2.5 mg -19 12- tablet by ity of tablet 00:00: 04:59 mouth [place] 00 :00 daily for Medical 30 days. Branch fenofibrate 2021- No [id number] 134mg Take 1 Univers micronized 5-19 12- capsule by it y of 134 mg 00:00: 04:59 mouth [place] capsule 00 :00 daily for Medical 30 days. Branch lisinopriL 2021- No [id number] 2.5mg Take 1 Univers 2.5 mg 5-19 12- tablet by ity of tablet 00:00: 04:59 mouth [place] 00 :00 daily for Medical 30 days. Branch fenofibrate 2021-2021- No [id number] 134mg Take 1 Univers micronized -19 12- capsule by it y of 134 mg 00:00: 04:59 mouth [place] capsule 00 :00 daily for Medical 30 days. Branch lisinopriL 2021- No [id number] 2.5mg Take 1 Univers 2.5 mg -31 - tablet by ity of tablet 00:00: 04:59 mouth [place] 00 :00 daily for Medical 30 days. Branch furosemide 2021- No [id number] 40mg Take 1 Univers 40 mg 5-30 [...] s: atrial fibrillati on calcitrioL 2021- No [id number] .5ug Take 1 Univers 0.5 mcg -30 -30 capsule by ity o f capsule 00:00: 04:59 mouth [place] 00 :00 daily for Medical 30 days. [place] insulin NPH 2021- No [id number] 5U inject 5 Univers (HUMULIN N 5-30 06-30 Units ity of NPH U-100 00:00: 04:59 under [place] INSULIN[place] 00 :00 skin every Medic al 100 unit/mL evening Branc h injection for 30 days. atorvastati 2021- No [id number] 40mg Take 1 Univers n 40 mg 5-30 -30 tablet by ity of tablet 00:00: 04:59 mouth at [place] 00 :00 bedtime Medical for 30 Branch days. carvediloL 2021- No [id number] 3.125mg Take 1 Univers 3.125 mg 5-30 06-30 tablet by ity o f tablet 00:00: 04:59 mouth 2 [place] 00 :00 (two) Medical times Branch daily with meals for 30 days. furosemide 2021- No [id number] 40mg Take 1 Univers 40 mg 5-30 [...] s: atrial fibrillati on calcitrioL 2021- No [id number] .5ug Take 1 Univers 0.5 mcg 5-30 06-30 capsule by ity o f capsule 00:00: 04:59 mouth [place] 00 :00 daily for Medical 30 days. Branch insulin NPH 2021- No [id number] 5U inject 5 Univers (HUMULIN N 5-30 06-30 Units ity of NPH U-100 00:00: 04:59 under the [place] INSULIN) 00 :00 skin every Medic al 100 unit/mL evening Branc h injection for 30 days. atorvastati 2021- No [id number] 40mg Take 1 Univers n 40 mg 5-30 06-30 tablet by ity of tablet 00:00: 04:59 mouth at [place] 00 :00 bedtime Medical for 30 Branch days. carvediloL 2021- No [id number] 3.125mg Take 1 Univers 3.125 mg 5-30 06-30 tablet by ity o f tablet 00:00: 04:59 mouth 2 [place] 00 :00 (two) Medical times Branch daily with meals for 30 days. furosemide 2021- No [id number] 40mg Take 1 Univers 40 mg 5-30 [...] s: atrial fibrillati on calcitrioL 2021- No [id number] .5ug Take 1 Univers 0.5 mcg 5-30 06-30 capsule by ity o f capsule 00:00: 04:59 mouth [place] 00 :00 daily for Medical 30 days. Branch insulin NPH 2021- No [id number] 5U inject 5 Univers (HUMULIN N 5-30 06-30 Units ity of NPH U-100 00:00: 04:59 [place] the [place] INSULIN[place] 00 :00 skin every Medic al 100 unit/mL evening Branc h injection for 30 days. atorvastati 2021- No [id number] 40mg Take 1 Univers n 40 mg 5-30 06-30 tablet by ity of tablet 00:00: 04:59 mouth at [place] 00 :00 bedtime Medical for 30 Branch days. carvediloL 2021- No [id number] 3.125mg Take 1 Univers 3.125 mg 5-30 -30 tablet by ity o f tablet 00:00: 04:59 mouth 2 [place] 00 :00 (two) Medical times Branch daily with meals for 30 days. metFORMIN Yes [id number] 500mg Take 1 U nivers 500 mg 3-02 tablet by ity of tablet 00:00: mouth [address] [place] [address] ([facility]) Medical times Branch daily with meals. metFORMIN Yes [id number] 500mg Take 1 U nivers 500 mg 3-02 tablet by ity of tablet 00:00: mouth [place] ([facility]) Medical times Branch daily with meals. metFORMIN Yes [id number] 500mg Take 1 U nivers 500 mg 3-02 tablet by ity of tablet 00:00: mouth [place] ([facility]) Medical times Branch daily with meals. metFORMIN Yes [id number] 500mg Take 1 U nivers 500 mg 3-02 tablet by ity of tablet 00:00: mouth [place] ([facility]) Medical times Branch daily with meals. metFORMIN Yes [id number] 500mg Take 1 U nivers 500 mg 3-02 tablet by ity of tablet 00:00: mouth [place] ([facility]) Medical times Branch daily with meals. metFORMIN Yes [id number] 500mg Take 1 U nivers 500 mg 3-02 tablet by ity of tablet 00:00: mouth 2 [place] ([facility]) Medical times Branch daily with meals. albuterol Yes [id number] 2{puff} Inhale 2 Univers 90 2-21 Puffs 2 ity of mcg/actuati 00:00: (two) [place] on inhaler 00 times Medical daily. Branch collagenase Yes [id number] Use as Univers 250 2-21 directed ity of unit/gram 00:00: by office Juan J as ointment 00 Medical Branch cyclobenzap Yes [id number] 10mg Take 1 Univers rine 10 mg 2-21 tablet by ity of tablet 00:00: mouth 2 [place] 00 (two) Medical times Branch daily as needed for Muscle Spasms. dextrometho Yes [id number] 10mL Take 10 mL Univers rphan-guaif 2-21 [...] for Pain (scale 4-6). melatonin 3 Yes [id number] 3mg Take 1 Univers mg tablet 2-21 tablet by ity o f 00:00: mouth at [place] 00 bedtime. Medical Branch ondansetron Yes [id number] 4mg Take 1 Univers 4 mg 2-21 tablet by ity of disintegrat 00:00: mouth [place] ing tablet 00 every 8 Medica l (eight) Branch hours as needed for Nausea and Vomiting (N/V). albuterol Yes [id number] 2{puff} Inhale 2 Univers 90 2-21 Puffs 2 ity of mcg/actuati 00:00: (two) [place] on inhaler 00 times Medical daily. Branch collagenase Yes [id number] Use as Univers 250 2-21 directed ity of unit/gram 00:00: by office Juan J as ointment 00 Medical Branch cyclobenzap Yes [id number] 10mg Take 1 Univers rine 10 mg 2-21 tablet by ity of tablet 00:00: mouth 2 [place] 00 (two) Medical times Branch daily as needed for Muscle Spasms. dextrometho Yes [id number] 10mL Take 10 mL Univers rphan-guaif 2-21 [...] for Pain (scale 4-6). melatonin 3 Yes [id number] 3mg Take 1 Univers mg tablet 2-21 tablet by ity o f 00:00: mouth at [place] 00 bedtime. Medical Branch ondansetron Yes [id number] 4mg Take 1 Univers 4 mg 2-21 tablet by ity of disintegrat 00:00: mouth [place] ing tablet 00 every 8 Medica l (eight) Branch hours as needed for Nausea and Vomiting (N/V). albuterol Yes [id number] 2{puff} Inhale 2 Univers 90 2-21 Puffs 2 ity of mcg/actuati 00:00: (two) [place] on inhaler 00 times Medical daily. Branch collagenase Yes [id number] Use as Univers 250 2-21 directed ity of unit/gram 00:00: by office [place] J as ointment 00 Medical Branch cyclobenzap Yes [id number] 10mg Take 1 Univers rine 10 mg 2-21 tablet by ity of tablet 00:00: mouth 2 [place] 00 (two) Medical times Branch daily as needed for Muscle Spasms. dextrometho Yes [id number] 10mL Take 10 mL Univers rphan-guaif 2-21 [...] for Pain (scale 4-6). melatonin 3 Yes [id number] 3mg Take 1 Univers mg tablet 2-21 tablet by ity o f 00:00: mouth at [place] 00 bedtime. Medical Branch ondansetron 2022-0 Yes [id number] 4mg Take 1 Univers 4 mg 2-21 tablet by ity of disintegrat 00:00: mouth [place] ing tablet 00 every 8 Medica l (eight) Branch hours as needed for Nausea and Vomiting (N/V). albuterol Yes [id number] 2{puff} Inhale 2 Univers 90 2-21 Puffs 2 ity of mcg/actuati 00:00: (two) [place] on inhaler 00 times Medical daily. Branch collagenase Yes [id number] Use as Univers 250 2-21 directed ity of unit/gram 00:00: by office [place] J as ointment 00 Medical Branch cyclobenzap Yes [id number] 10mg Take 1 Univers rine 10 mg 2-21 tablet by ity of tablet 00:00: mouth 2 [place] 00 (two) Medical times Branch daily as needed for Muscle Spasms. melatonin 3 Yes [id number] 3mg Take 1 Univers mg tablet 2-21 tablet by ity o f 00:00: mouth at [place] 00 bedtime. Medical Branch ondansetron Yes [id number] 4mg Take 1 Univers 4 mg 2-21 tablet by ity of disintegrat 00:00: mouth [place] ing tablet 00 every 8 Medica l (eight) Branch hours as needed for Nausea and Vomiting (N/V). albuterol Yes [id number] 2{puff} Inhale 2 Univers 90 2-21 Puffs 2 ity of mcg/actuati 00:00: (two) [place] on inhaler 00 times Medical daily. Branch collagenase Yes [id number] Use as Univers 250 2-21 directed ity of unit/gram 00:00: by office [place] J as ointment 00 Medical Branch cyclobenzap Yes [id number] 10mg Take 1 Univers rine 10 mg 2-21 tablet by ity of tablet 00:00: mouth 2 [place] 00 (two) Medical times Branch daily as needed for Muscle Spasms. melatonin 3 Yes [id number] 3mg Take 1 Univers mg tablet 2-21 tablet by ity o f 00:00: mouth at [place] 00 bedtime. Medical Branch ondansetron 0 Yes [id number] 4mg Take 1 Univers 4 mg 2-21 tablet by ity of disintegrat 00:00: mouth [place] ing tablet 00 every 8 Medica l (eight) Branch hours as needed for Nausea and Vomiting (N/V). albuterol Yes [id number] 2{puff} Inhale 2 Univers 90 2-21 Puffs 2 ity of mcg/actuati 00:00: (two) [place] on inhaler 00 times Medical daily. Branch collagenase Yes [id number] Use as Univers 250 2-21 directed ity of unit/gram 00:00: by office Juan J as ointment 00 Medical Branch cyclobenzap Yes [id number] 10mg Take 1 Univers rine 10 mg 2-21 tablet by ity of tablet 00:00: mouth 2 [place] 00 (two) Medical times Branch daily as needed for Muscle Spasms. melatonin 3 Yes [id number] 3mg Take 1 Univers mg tablet 2-21 tablet by ity o f 00:00: mouth at [place] 00 bedtime. Medical Branch ondansetron Yes [id number] 4mg Take 1 Univers 4 mg 2-21 tablet by ity of disintegrat 00:00: mouth [place] ing tablet 00 every 8 Medica l (eight) Branch hours as needed for Nausea and Vomiting (N/V). dextrometho 2021- No [id number] 10mL Take 10 mL Univers rphan-guaif 07-12 [...] Brooke Frankel 00:00: 00:00 Patient 00 :00 [facility] Diflunisal Diflunisal 2015- No Todd Wynn [address] [facility] (Dolobid) (Dolobid) 01-17 [facility] 500 Mg 500 Mg 00:00: 00:00 Patient Tablet, 500 Tablet, 500 00 :00 M edical Mg Oral Mg Oral Center Ondansetron Ondansetron 2016- No Todd Wynn [address] [facility] Hcl Hcl 01-17 [place] as Luke s (Zofran*) 4 (Zofran*) 4 00:00: 00:00 needed for Patient Mg Tablet, Mg Tablet, 00 :00 Nausea M edical 4 Mg 4 Mg Center Sublingual Sublingual Clopidogrel Clopidogrel Yes [address] [facility] Bisulfate Bisulfate [facility] (Plavix) 75 (Plavix) 75 P atient Mg Tablet Mg Tablet Medic al Center Cyclobenzap Cyclobenzap Yes [address] [facility] [address] rine Hcl rine Hcl Times A Luke s (Flexeril) (Flexeril) Day as P atient 5 Mg Tablet 5 Mg Tablet needed for Medical Muscle Center Spasms Doxazosin Doxazosin Yes [address] [facility] [address] Mesylate Mesylate [facility] (Cardura) 8 (Cardura) 8 P atient Mg [...] Tablet Mg Tablet Day [facility] Patient Medical [place] Hydrocodone Hydrocodone Yes [address] [facility] Bit/Acetami Bit/Acetami Hours as [facility] nophen nophen needed for Patie nt ([place] [facility] 10-325 10-325 Center Tablet) 1 [...] Mg Tablet Mg Tablet Patie nt Medical [place] Nitroglycer Nitroglycer Yes As Needed [facility] in in [facility] (Nitrostat) (Nitrostat) P atient 0.4 Mg 0.4 Mg Medical Tab.subl Tab.subl Center Omeprazole Omeprazole Yes [address] 20 Mg 20 Mg [facility] Capsule.dr Lind. [facility] Simvastatin Simvastatin Yes [address] 80 Mg 80 Mg [facility] Tablet Tablet Patient [facility] Tamsulosin Tamsulosin Yes Daily [facility] Hcl 0.4 Mg Hcl 0.4 Mg Esme es Cap.er.24h Cap.er.24h [facility] Tramadol Tramadol Yes [address] Hcl Hcl Daily as [facility] (Ultram) 50 (Ultram) 50 needed for Patient Mg Tablet Mg Tablet Pain Medic al Center Venlafaxine Venlafaxine Yes [address] Hcl 75 Mg Hcl 75 Mg [facility] Tab Tab Patient [facility] Albuterol Albuterol 2017- No 1 Twice A [...] 06-17 [facility] Capsule., Capsule., 00:00 Patient :00 [facility] Insulin Insulin 90 Twice A [facility] [...] 25 Mg Oral 25 Mg Oral :00 [facility] Albuterol Albuterol As Needed [facility] Sulfate Sulfate 11-23 as needed Esme es (Ventolin (Ventolin 00:00 for Manjula ent Hfa) 18 Gm Hfa) 18 Gm :[facility] Medical Hfa.aer.ad, Hfa.aer.ad, Of Breath Center 90 Mcg 90 Mcg Inhalation Inhalation Dicyclomine Dicyclomine Twice A [facility] Hcl 10 Mg Hcl 10 Mg 11-23 Day Luke s Capsule, 10 Capsule, 10 00:00 Patient Mg Oral Mg Oral :00 [facility] Methocarbam Methocarbam [address] ol [...] Mg Oral 600 Mg Oral :00 M [facility] Pregabalin Pregabalin 2013- No 150 [...] Immunizations Ordered Filled Immunization Date Status Comments [facility] e Immunization Name Name Influenza Virus 2021-01-16 Completed Universit y of Vaccine 00:00:00 [facility] Influenza Virus 2021-01-16 Completed Universit y of Vaccine 00:00:00 [facility] Influenza Virus 2021-01-16 Completed Universit y of Vaccine 00:00:00 [facility] Influenza Virus 2021-01-16 Completed Universit y of Vaccine 00:00:00 [facility] Influenza Virus 2021-01-16 Completed Universit y of Vaccine 00:00:00 [facility] Influenza Virus 2021-01-16 Completed Universit y of Vaccine 00:00:00 [facility] SARS-COV-2 COVID-19 2020-10-16 Completed Unive rsity of PEDRO/J&J VACCINE 00:00:00 [facility] SARS-COV-2 COVID-19 2020-10-16 Completed Unive rsity of PEDRO/J&J VACCINE 00:00:00 [facility] SARS-COV-2 COVID-19 2020-10-16 Completed Unive rsity of PEDRO/J&J VACCINE 00:00:00 [facility] SARS-COV-2 COVID-19 2020-10-16 Completed Unive rsity of PEDRO/J&J VACCINE 00:00:00 [facility] SARS-COV-2 COVID-19 2020-10-16 Completed Unive rsity of PEDRO/J&J VACCINE 00:00:00 [facility] SARS-COV-2 COVID-19 2020-10-16 Completed Unive rsity of PEDRO/J&J VACCINE 00:00:00 [facility] Influenza Virus 2020-01-21 Completed Universit y of Vaccine 00:00:00 [facility] Influenza Virus 2020-01-21 Completed Universit y of Vaccine 00:00:00 [facility] Influenza Virus 2020-01-21 Completed Universit y of Vaccine 00:00:00 [facility] Influenza Virus 2020-01-21 Completed Universit y of Vaccine 00:00:00 [facility] Influenza Virus 2020-01-21 Completed Universit y of Vaccine 00:00:00 [facility] Influenza Virus 2020-01-21 Completed Universit y of Vaccine 00:00:00 [facility] Zoster Vaccine 2019-07-17 Completed University of Recombinant 00:00:00 [facility] Zoster Vaccine 2019-07-17 Completed University of Recombinant 00:00:00 [facility] Zoster Vaccine 2019-07-17 Completed University of Recombinant 00:00:00 [facility] Zoster Vaccine 2019-07-17 Completed University of Recombinant 00:00:00 [facility] Zoster Vaccine 2019-07-17 Completed University of Recombinant 00:00:00 [facility] Zoster Vaccine 2019-07-17 Completed University of Recombinant 00:00:00 [facility] Td 2019-03-29 Completed University of 00:00:00 [facility] Td 2019-03-29 Completed University of 00:00:00 [facility] Td 2019-03-29 Completed University of 00:00:00 [facility] Td 2019-03-29 Completed University of 00:00:00 [facility] Td 2019-03-29 Completed University of 00:00:00 [facility] Td 2019-03-29 Completed University of 00:00:00 [facility] Influenza Virus 2018-02-18 Completed Universit y of Vaccine 00:00:00 [facility] Pneumococcal 2018-02-18 Completed University o f Polysaccharide, 00:00:00 [place] Med ical PPSV23 (PNEUMOVAX) [place] Influenza Virus 2018-02-18 Completed Universit y of Vaccine 00:00:00 [facility] Pneumococcal 2018-02-18 Completed University o f Polysaccharide, 00:00:00 [place] [facility] ical PPSV23 (PNEUMOVAX) [place] Influenza Virus 2018-02-18 Completed Universit y of Vaccine 00:00:00 [facility] Pneumococcal 2018-02-18 Completed University o f Polysaccharide, 00:00:00 [place] Med ical PPSV23 (PNEUMOVAX) Branch Influenza Virus 2018-02-18 Completed Universit y of Vaccine 00:00:00 [facility] Pneumococcal 2018-02-18 Completed University o f Polysaccharide, 00:00:00 [place] [facility] ical PPSV23 (PNEUMOVAX) Branch Influenza Virus 2018-02-18 Completed Universit y of Vaccine 00:00:00 [facility] Pneumococcal 2018-02-18 Completed University o f Polysaccharide, 00:00:00 [place] [facility] ical PPSV23 (PNEUMOVAX) Branch Influenza Virus 2018-02-18 Completed Universit y of Vaccine 00:00:00 [facility] Pneumococcal 2018-02-18 Completed University o f Polysaccharide, 00:00:00 [place] [facility] ical PPSV23 (PNEUMOVAX) Branch Influenza Virus 2008-03-19 Completed Universit y of Vaccine 00:00:00 [facility] Pneumococcal 2008-03-19 Completed University o f Polysaccharide, 00:00:00 [place] [facility] ical PPSV23 (PNEUMOVAX) Branch Influenza Virus 2008-03-19 Completed Universit y of Vaccine 00:00:00 [facility] Pneumococcal 2008-03-19 Completed University o f Polysaccharide, 00:00:00 [place] [facility] ical PPSV23 (PNEUMOVAX) Branch Influenza Virus 2008-03-19 Completed Universit y of Vaccine 00:00:00 [facility] Pneumococcal 2008-03-19 Completed University o f Polysaccharide, 00:00:00 [facility] ical PPSV23 (PNEUMOVAX) Branch Influenza Virus 2008-03-19 Completed Universit y of Vaccine 00:00:00 [facility] Pneumococcal 2008-03-19 Completed University o f Polysaccharide, 00:00:00 [place] [facility] ical PPSV23 (PNEUMOVAX) Branch Influenza Virus 2008-03-19 Completed Universit y of Vaccine 00:00:00 [facility] Pneumococcal 2008-03-19 Completed University o f Polysaccharide, 00:00:00 [place] [facility] ical PPSV23 (PNEUMOVAX) Branch Influenza Virus 2008-03-19 Completed Universit y of Vaccine 00:00:00 [facility] Pneumococcal 2008-03-19 Completed University o f Polysaccharide, 00:00:00 [place] [facility] ical PPSV23 (PNEUMOVAX) [place] Vital Signs Vital Name Observation Time Observation Value Comments Source Systolic blood 2022-02-10 105 mm[Hg] University of pressure 16:35:00 [facility] Diastolic blood 2022-02-10 57 mm[Hg] University o f pressure 16:35:00 [facility] Heart rate 2022-02-10 65 /min University of 16:35:00 [facility] Body temperature 2022-02-10 36.22 Sandy University of 16:35:00 [facility] Respiratory rate 2022-02-10 18 /min University of 16:35:00 [facility] Oxygen saturation 2022-02-10 98 /min University of in Arterial blood 16:35:00 [place] Medi uriel by Pulse oximetry Branch Body weight 2022-02-10 74.98 kg University of 08:16:00 [facility] BMI 2022-02-10 25.89 kg/m2 University of 08:16:00 [facility] Body height 2022-02-10 170.2 cm Height before University of 01:18:[address] [facility] Systolic blood 2021-11-09 124 mm[Hg] University of pressure 23:00:00 [facility] Diastolic blood 2021-11-09 69 mm[Hg] University o f pressure 23:00:00 [facility] Heart rate 2021-11-09 72 /min University of 23:00:00 [facility] Respiratory rate 2021-11-09 25 /min University of 23:00:00 [facility] Oxygen saturation 2021-11-09 98 /min University of in Arterial blood 23:00:00 [facility] [place] [facility] uriel by Pulse oximetry Branch Body temperature 2021-11-09 37.22 Sandy University of 20:28:39 [facility] Body height 2021-11-09 170.2 cm University of 20:16:00 [facility] Body weight 2021-11-09 71.215 kg University of 20:16:00 [facility] BMI 2021-11-09 24.59 kg/m2 University of 20:16:00 [facility] Systolic blood 2021-11-05 134 mm[Hg] University of pressure 10:00:00 [facility] Diastolic blood 2021-11-05 78 mm[Hg] University o f pressure 10:00:00 [facility] Heart rate 2021-11-05 81 /min University of 10:00:00 [facility] Body temperature 2021-11-05 36.28 Sandy University of 08:10:00 [place] [facility] Respiratory rate 2021-11-05 18 /min [facility] 08:00:00 [facility] Oxygen saturation 2021-11-05 99 /min [facility] Arterial blood 08:00:00 [facility] by Pulse oximetry [place] Body height 2021-11-05 170.2 cm [facility] 05:48:00 [facility] Body weight 2021-11-05 71.215 kg [facility] 05:48:00 [facility] BMI 2021-11-05 24.59 kg/m2 [facility] 05:48:00 [facility] Procedures Procedure Date / Time Performing Clinician Source Performed INSURANCE CORRESPONDENCE 2022-04-19 06:01:00 Doctor Unassigned, [facility] [place] [facility] [place] TRANSTHORACIC ECHO (TTE) 2022-02-10 13:16:00 Martha Rowe [facility] COMPLETE W/ CONTRAST Medical Bra nch PHOSPHORUS 2022-02-10 10:22:00 Martha Rowe [facility] MAGNESIUM 2022-02-10 10:22:00 Martha Rowe [facility] TROPONIN I 2022-02-10 10:22:00 Martha Rowe [facility] COMP. METABOLIC PANEL 2022-02-10 10:22:00 Martha Rowe [facility] ([id number]) [facility] CBC WITH DIFF 2022-02-10 10:22:00 Martha Rowe [facility] CREATINE KINASE 2022-02-10 04:37:00 Martha Rowe [facility] URIC ACID 2022-02-10 04:37:00 Martha Rowe [facility] FERRITIN SERUM 2022-02-10 04:37:00 Martha Rowe [facility] FOLATE 2022-02-10 04:37:00 Martha Rowe [facility] TROPONIN I 2022-02-10 04:37:00 Martha Rowe [facility] THYROID STIMULATING 2022-02-10 04:37:00 Martha Rowe [facility] HORMONE Medical Branch LIPID PANEL ([id number])(TOTAL 2022-02-10 04:37:00 [facility], [facility] CHOLESTEROL, Medical Branch TRIGLYCERIDES, HDL) IRON PANEL 2022-02-10 04:37:00 Martha Rowe [facility] GLYCOSYLATED HEMOGLOBIN 2022-02-10 04:37:00 Martha Rowe [facility] (A1C) [facility] N-TERMINAL PRO-BNP 2022-02-10 04:37:00 Jae daisy [facility] VITAMIN D, 25-OH 2022-02-10 04:37:00 Jea daisy [facility] COVID-19 (ID NOW RAPID 2022-02-10 04:37:00 Martha Rowe [facility] TESTING) [facility] B-TYPE NATRIURETIC FACTOR 2022-01-30 18:10:00 [facility] (BNP) Center XR CHEST 1 VW 2021-11-09 21:07:00 Troy Ku Mckenzie [facility] POCT GLUCOSE (AUTOMATED) 2021-11-09 20:25:00 Troy Ku [facility] MAGNESIUM 2021-11-09 20:19:00 Troy Ku [facility] TROPONIN I 2021-11-09 20:19:00 Troy Ku [facility] COMP. METABOLIC PANEL 2021-11-09 20:19:00 Troy Ku [facility] ([id number]) [facility] CBC WITH DIFF 2021-11-09 20:19:00 Troy Ku [facility] N-TERMINAL PRO-BNP 2021-11-09 20:19:00 Troy Ku [facility] XR CHEST 1 VW 2021-11-05 06:38:35 Mihaela Martin [facility] [id number] 2020-08-11 00:00:00 ALDMO [facility] [id number] 2020-08-11 00:00:00 ALDMO [facility] [id number] 2020-08-11 00:00:00 ALDMO [facility] [id number] 2020-08-11 00:00:00 ALDMO [facility] Computed tomography 2017-10-24 00:00:00 BROOKE ALEXIS LUCY [...] Clinicians Facility Department ID 2021-06-17 Outpatient 3 [id number] ENCKY MALDONADO [id number] [facility] 10:24:03 [id number] [facility] 2021-06-17 Outpatient 3 [id number] ENCKY REF [id number] [facility] 10:22:04 [id number] [facility] [place] 2021-03-22 Emergency [facility] [id number] Univers 15:25:[address] [facility] 2021-03-22 Emergency [facility] [id number] Univers 10:56:[address] [facility] 2021-03-21 Emergency [facility] [id number] Univers 18:15:[address] [facility] 2021-03-21 Emergency [facility] [id number] Univers 17:18:[address] [facility] 2021-03-21 Emergency [facility] [id number] Univers 12:58:[address] [facility] 2021-03-21 Emergency [facility] [id number] Univers 04:06:[address] [facility] 2021-03-21 Emergency [facility] [id number] Univers 00:12:[address] [facility] 2021-03-20 Emergency [facility] [id number] Univers 00:55:[address] [facility] 2021-03-19 Emergency [facility] [id number] Univers 17:28:[address] [facility] 2021-03-19 Emergency [facility] [id number] Univers 03:16:[address] [facility] 2021-03-18 Emergency [facility] [id number] Univers 13:56:[address] [facility] 2020-08-23 Inpatient HCACL FERNANDO [id number] [facility] 17:41:00 84 [facility] 2020-04-04 Inpatient Marko, HCAMN HCAMN [id number] [facility] 14:40:00 Edward 33 [facility] 2019-10-15 Inpatient RADHA Shah, HCAPM ENDO [id number] [facility] 15:30:00 Finn [id number] [facility] 2022-04-19 2022-04-19 Orders Doctor JOSE [id number] Univers 00:00:00 00:00:00 Only Unassigned, [place] [id number] ity of [place] [facility] [id number] Juan J as [phone] [facility] 009 Branch 2022-02-11 2022-02-11 Transition LATRICE Harding 1.2.840.114 [id number] Univers 00:00:00 00:00:00 of Care Josselyntoni DUQUE [id number] it y of [id number] [place] [phone] [facility] 403 Branch 2022-02-09 2022-02-10 Outpatient U JAE [facility] DARIUS [id number] Univers 19:53:00 13:45:[address] [facility] 2022-02-09 2022-02-10 Hospital Ana Maria Meza [facility] [id number] Univers 19:53:00 13:45:00 Encounter Martha Rowe [id number] ity of [id number] [place] [phone] [facility] 081 Branch 2022-01-30 2022-01-30 Lab [facility] [id number] 00:00:00 00:00:00 Requisitio [facility]me [facility] 2022-01-30 2022-01-30 Lab [facility] [id number] 00:00:00 00:00:00 Requisitio Esme [facility] 2021-11-09 2021-11-09 Emergency X Troy KU [facility] ERT [id number] Univers 15:15:00 18:32:[address] [facility] 2021-11-09 2021-11-09 Emergency Troy Ku [facility] 1.2.840.114 [id number] Univers 15:15:00 18:32:00 Mckenzie PEREZ [id number] i ty of [place] [id number] [facility] [phone] [place] [id number] [place] 2021-11-05 2021-11-05 Emergency [facility] [id number] Univers 00:44:00 06:53:00 MIHAELA baugh [facility] 2021-11-05 2021-11-05 [facility] [id number] Univers 00:44:00 06:53:00 Mihaela PEREZ [id number] ity of [facility] [id number] [facility] [phone] [facility] 084 [place] 2021-11-04 2021-11-04 Transition Feliciano CLAUDETTETanya 1.2.840.114 [id number] Univers 00:00:00 00:00:00 of Care Micaela DU[place] [id number] it y of [place] [id number] [facility] [phone] [facility] 403 Branch 2021-11-02 2021-11-03 Outpatient X BRAYDON [facility] [id number] Univers 22:35:00 15:46:00 OC baugh [facility] 2021-11-02 2021-11-03 Emergency Curtis Xavier [facility] 1.2.840. 114 [id number] Univers 22:35:00 15:46:00 Oc Bryson [id number] ity of [place] [id number] [facility] [phone] [facility] 081 Branch 2021-11-02 2021-11-03 Outpatient X BRAYDON [facility] [id number] Univers 22:35:00 15:46:00 OC itvashti [facility] 2021-11-01 2021-11-01 Transition LATRICE Feliciano 1.2.840.114 [id number] Univers 00:00:00 00:00:00 of Care Micaela DU[place] [id number] it y of [place] [id number] [facility] [phone] [facility] 403 Branch 2021-10-27 2021-10-29 Outpatient X DERRICK [facility] [id number] Univers 17:41:00 14:03:00 ANA MARIA vashti [facility] 2021-10-27 2021-10-29 Emergency Jameson Mejia [facility] 1.2.840. 114 [id number] Univers 17:41:00 14:03:00 Lizett Gerardo [id number] ity of [place]za [id number] [facility] [id number] [address] 2021-10-27 2021-10-29 Outpatient [facility] [id number] Univers 17:41:00 14:03:00 ANA MARIA vashti [facility] 2021-10-21 2021-10-22 Emergency [facility] ERT [id number] Univers 20:24:00 04:18:00 JYOTI [facility] 2021-10-21 2021-10-22 Emergency [facility] [id number] Univers 20:24:00 04:18:00 Jyoti PEREZ [id number] i Joy [id number] [facility] [phone] [facility] 084 Branch 2021-10-20 2021-10-20 Transition LATRICE Aleman 1.2.840.114 [id number] Univers 00:00:00 00:00:00 of Care Rico A [place] [id number] [id number] [phone] [facility] 403 Branch 2021-10-15 2021-10-18 Outpatient [facility] [id number] Univers 16:42:00 13:52:00 ANA MARIA baugh [facility] 2021-10-15 2021-10-18 Emergency Jameson Mejia [facility] 1.2.840. 114 [id number] Univers 16:42:00 13:52:00 Ana Maria Meza [id number] ity of [id number] [place] [facility] [phone] [facility] 081 Branch 2021-07-23 2021-07-23 Transition LATRICE Farooq 1.2.840.114 [id number] Univers 00:00:00 00:00:00 of Care Marcella DU[place] [id number] i ty of [id number] [phone] [facility] 403 Branch 2021-07-19 2021-07-22 [facility] Brandyn Dumont [facility] 1.2.840.1 [id number] Univers 09:10:00 17:00:00 Encounter [facility] [id number] ity of [id number] [phone] [facility] 109 Branch ([facility]) 2021-07-19 2021-07-22 Inpatient X HILL, [facility] [id number] Univers 09:10:00 17:00:00 GEOFFREY baugh [facility] 2021-07-21 2021-07-21 Outpatient Wong_H VFP VFP [id number] Village 06:58:00 06:58:00 [id number] Family Practic e 2021-07-13 2021-07-13 Transition LATRICE Aleman 1.2.840.114 [id number] Univers 00:00:00 00:00:00 of Care Rico DUQUE [id number] [id number] [phone] [facility] 403 Branch 2021-06-28 2021-07-12 Inpatient X REBECCA [facility] [id number] Univers 10:43:00 18:25:00 AMBIKA vashti [facility] 2021-06-28 2021-07-12 [facility] Jameson Mejia [facility] 1.2.840.1 [id number] Univers 10:43:00 18:25:00 Encounter Troy Ku [id number] ity of Ambika Fernandez [place] [id number] [facility] [phone] [facility] 081 Branch 2021-02-15 2021-02-15 Outpatient R DONALDO, [facility] [id number] Univers 15:00:00 15:00:00 ALECIA [facility] 2021-01-11 2021-01-11 [facility] [id number] Univers 10:45:00 10:45:00 GINA baugh o f [facility] 2021-01-05 2021-01-05 Transition Latrice Aleman 1.2.840.114 [id number] Univers 00:00:00 00:00:00 of Care Rico Duque 350.1.13.10 it[place] [phone] [facility] 403 Branch 2021-01-01 2021-01-04 [facility] Wayne Can [facility] 1.2.840.1 14 [id number] Univers 14:18:00 18:10:00 Encounter Lizett Gerardo 350.1.13.10 it[place] of [place] [phone] [facility] 081 Branch 2021-01-01 2021-01-01 Orders Doctor JOSE 1.2.840.114 [id number] Univers 00:00:00 00:00:00 Only Unassigned, CAROLINA 350.1.13.10 ity of [place] [facility] 4.2.7.2.686 Juan J as [phone] [facility] 009 Branch 2020-12-17 2020-12-17 Transition Latrice Harding 1.2.840.114 [id number] Univers 00:00:00 00:00:00 of Care Josselyn Duque 350.1.13.10 it y of [place] 4.2.7.2.686 [facility] [phone] [facility] 403 Branch 2020-12-14 2020-12-16 Emergency Jyoti Cedeno S [facility] 1.2.840.1 14 [id number] Univers 17:50:00 17:46:00 Ana Maria Meza 350.1.13.10 ity of [place] 4.2.7.2.[address] [facility] [phone] [facility] 081 Branch 2020-11-16 2020-11-16 Orders Doctor JOSE 1.2.840.114 [id number] Univers 00:00:00 00:00:00 Only Unassigned, CAROLINA 350.1.13.10 ity of [place] [facility] 4.2.7.2.686 Juan J [phone] [facility] 009 Branch 2020-10-30 2020-11-05 Inpatient EM Debi, [facility] [id number] [facility] 16:50:00 13:52:00 Fede [address] [facility] [place] 2020-10-31 2020-10-31 Outpatient ANNEL Carrera LABO [id number] [facility] 08:22:00 08:22:00 Fede 73 [facility] 2020-10-28 2020-10-28 Hospital Radiology [facility] 1.2.840.114 [id number] Univers 08:30:17 23:59:00 Encounter Sera 350.1.13.10 ity of [place] 4.2.7.2.686 [facility] [place] [phone] [facility] 807 Branch 2020-10-28 2020-10-28 Hospital Radiology [facility] 1.2.840.114 [id number] 08:30:17 23:59:00 Encounter Gaylord 350.1.13.10 [place] 4.2.7.2.686 [place] [phone] 807 2020-10-28 2020-10-28 Outpatient R RADIOLOGY [facility] [id number] Univers 00:00:00 00:00:00 ity of [place] [facility] 2020-10-12 2020-10-12 Office [facility] 1.2.840.114 [id number] Univers 14:02:10 14:50:48 Visit Bryan Sera 350.1.13.10 i ty of [place].2.[place] Profess[place] [phone] Ct dical [facility] 204 [facility] 2020-10-12 2020-10-12 Outpatient R CHANTELLE [facility] [id number] Univers 14:00:00 14:50:48 BRYAN ity [facility] 2020-10-12 2020-10-12 Outpatient [facility] [id number] Univers 14:00:00 14:00:00 [facility] 2020-10-06 2020-10-06 Office [facility] 1.2.840.114 [id number] Univers 10:43:51 11:59:29 Visit Gina Perez 350.1.13.10 ity [facility] 4.2.7.2.[place] Profess[place] [phone] Ct dical [address] 2020-10-06 2020-10-06 Office [facility] 1.2.840.114 [id number] 10:43:51 11:59:29 Visit Gina Perez 350.1.13.10 [place] 4.2.7.2.686 Professio [phone] [address] 2020-10-06 2020-10-06 Outpatient R IVANA [facility] [id number] Univers 10:30:00 10:30:00 GINA baugh o f [facility] 2020-10-06 2020-10-06 Orders Doctor GARCIA 1.2.840.114 [id number] Univers 00:00:00 00:00:00 Only Unassigned, CAROLINA 350.1.13.10 ity of [place] [facility] 4.2.7.2.686 Juan J as [phone] [address] 2020-09-28 2020-09-28 [facility] 1.2.840.114 [id number] Univers 17:28:00 21:08:00 Elmerji Anuj Perez 350.1.13.10 ity of [place] 4.2.7.2.686 [facility] [phone] [facility] 084 Branch 2020-09-28 2020-09-28 Transition Latrice French 1.2.840.114 [id number] Univers 00:00:00 00:00:00 of Care Gilda Duque 350.1.13.10 it y [place].2.7.2.[place] [phone] [facility] 403 Branch 2020-09-23 2020-09-26 [facility] Wayne Can [facility] 1.2.840.1 14 [id number] Univers 13:50:00 18:28:00 Encounter Ambika Fernandez 350.1.13.10 ity of [place] 4.2.7.2.[address] [facility] [phone] [place] [id number] [place] 2020-09-23 2020-09-26 Inpatient X GABRIELEALEJANDRA [facility] [id number] Univers 13:50:00 18:28:00 AMBIKA baugh [facility] 2020-09-22 2020-09-22 Outpatient [facility] [id number] Univers 09:45:00 09:45:[address] [facility] 2020-09-10 2020-09-10 Outpatient R [facility] [id number] Univers 16:15:00 16:15:00 BRYAN baugh [facility] 2020-09-09 2020-09-09 Transition Latrice Aleman 1.2.840.114 [id number] Univers 00:00:00 00:00:00 of Care Rico Duque 350.1.13.10 it[place].7.[place] [phone] [address] 2020-09-08 2020-09-08 Outpatient [facility] [id number] Univers 08:30:00 08:30:[address] [facility] 2020-09-02 2020-09-07 Hospital Jose Guy [facility] 1.2.840.114 [id number] Univers 16:46:00 18:45:[address] [facility] 350. 1.13.10 ity of [place] 4.2.7.2.686 [place] Kaylyn Calvin Mejia [phone] [address] ([facility]) 2020-08-26 2020-08-26 Office Tha Gunter [facility] 1.2.840.114 [id number] Univers 10:44:06 11:14:06 Visit [facility] 350.1.13.10 it y of [place].2.7.2.[place] [phone] [address] Office Building 2020-08-26 2020-08-26 Outpatient R THA GUNTER [facility] [id number] Univers 10:30:00 10:30:00 ity [facility] 2020-08-25 2020-08-25 Outpatient Tim HEATH [facility] [id number] Univers 10:00:00 10:00:[address] [facility] 2020-08-24 2020-08-24 Outpatient R YENI [facility] [id number] Univers 09:00:00 09:00:00 DEIDRE baugh [facility] 2020-08-21 2020-08-21 Office [facility] 1.2.840.114 [id number] Univers 08:43:52 09:13:46 Visit Gina Perez 350.1.13.10 ity of [place] 4.2.7.2.686 [place] [phone] [place] [address] Branch Building 2020-08-21 2020-08-21 Outpatient Tim HEATH [facility] [id number] Univers 08:30:00 08:30:[address] [facility] 2020-08-10 2020-08-14 Inpatient EM ANNEL MontanezCL INTE.02 [id number] [facility] 09:09:00 18:56:00 Johnie Reardon [facility] 2020-08-11 2020-08-11 Outpatient [facility] [id number] Univers 09:15:00 09:15:[address] [facility] 2020-08-07 2020-08-07 Outpatient R [facility] [id number] Univers 10:00:00 10:00:[address] [facility] 2020-07-27 2020-08-06 [facility] Jameson Mejia 1.2.840.1 14 [id number] Univers 12:13:00 17:15:00 Encounter Minnie Cardona 350.1.13.10 ity of [facility] 4.2.7.2.686 [place] Drew Noriega [phone] [facility] Skinner [facility] [address] [place] [address] 2020-07-27 2020-08-06 Inpatient JOHNIE SKINNER [facility] [id number] Univers 12:13:00 17:15:[address] [facility] 2020-07-24 2020-07-24 Outpatient R [facility] [id number] Univers 13:00:00 13:00:00 GINA workman [facility] 2020-07-21 2020-07-21 Transition Latrice Aleman 1.2.840.114 [id number] Univers 00:00:00 00:00:00 of Care Rico Duque 350.1.13.10 ity of [place] 4.2.7.2.686 Noe beckett [phone] [address] 2020-07-10 2020-07-20 [facility] Janeth Leal 1.2.84 0.114 [id number] Univers 19:24:00 21:51:00 Encounter Oc Bryson 350.1.13.10 ity of Janeth Leal [facility] 4.2.7.2.686 [place] Minnie Cardona [phone] Medical Lisa Marroquin [address] 2020-07-17 2020-07-17 Outpatient [facility] [id number] Univers 10:00:00 10:00:00 JOSE itvashti [facility] 2020-07-10 2020-07-10 Outpatient R IVANA [facility] [id number] Univers 08:45:00 08:45:[address] ji anuj [facility] 2020-06-15 2020-06-15 Telephone [facility] 1.2.055.937 [id number] Univers 00:00:00 00:00:00 Jose Perez 350.1.13.10 i ty of [place].2.7.2.686 [place] [phone] dical nal 204 Branch Building 2020-06-11 2020-06-11 Office [facility] 1.2.840.114 [id number] Univers 13:43:55 13:58:55 Visit Jose Reyes 350.1.13.10 it y of [place] 4.2.7.2.686 [place] - [phone] Med ical [facility] 188 Branch 2020-06-11 2020-06-11 Outpatient R JANKI [facility] [id number] Univers 13:30:00 13:30:00 JOSE baugh [facility] 2020-06-03 2020-06-03 Transition Latrice Aleman 1.2.840.114 [id number] Univers 00:00:00 00:00:00 of Care Rico Duque 350.1.13.10 ity of [place] [phone] [facility] 403 Branch 2020-05-29 2020-06-02 [facility] Jameson Mejai [facility] 1.2.840.1 14 [id number] Univers 09:12:00 16:02:00 Encounter Lizett Gerardo 350.1.13.10 ity of [place] 4.2.7.2.686 [facility] [phone] [facility] 081 Branch 2020-05-29 2020-06-02 Inpatient X JAE [facility] [id number] Univers 09:12:00 16:02:00 MARTHA baugh [facility] 2020-05-29 2020-05-29 Outpatient R JANKI [facility] [id number] Univers 10:15:00 10:15:00 JOSE baugh [facility] 2020-04-23 2020-04-23 Office [facility] 1.2.840.114 [id number] Univers 13:48:18 14:03:[address] [facility] 350.1.13.10 it y of [place].2.[place].2.686 [place] - [phone] [address] 2020-04-23 2020-04-23 Outpatient R [facility] [id number] Univers 13:30:00 13:30:00 JOSE baugh [facility] 2020-04-23 2020-04-23 Orders Doctor JOSE 1.2.840.114 [id number] Univers 00:00:00 00:00:00 Only Unassigned, CAROLINA 350.1.13.10 ity of [place] [facility] 4.2.7.2.686 [place] J as [phone] [facility] 009 [place] 2020-04-09 2020-04-09 Office [facility] 1.2.840.114 [id number] Univers 13:58:45 14:13:[address] [facility] 350.1.13.10 it y of [place] 4.2.7.2.686 [facility] s [place] - [phone] [address] 2020-04-09 2020-04-09 Outpatient R [facility] [id number] Univers 14:00:00 14:00:00 JOSE baugh [facility] 2020-03-27 2020-03-27 Transition Latrice Aleman 1.2.840.114 [id number] Univers 00:00:00 00:00:00 of Care Rico Duque 350.1.13.10 ity of [place].2.[place] [phone] [facility] 403 Branch 2020-03-15 2020-03-26 Hospital Jameson Mejia 1.2.840.1 14 [id number] Univers 23:48:00 18:02:00 Encounter Kandis Hough 350.1.13.10 ity of Janki [facility] 4.2.7.2.68 6 [place] [phone] [facility] 098 Branch 2020-03-18 2020-03-18 Anesthesia Caio Najera Nancy 1. 2.840.114 [id number] Univers 13:52:00 16:42:00 Stephanie Franks 350.1.13.10 ity of [facility] 4.2.7.2.686 [place] [phone] [facility] 103 Branch 2020-02-06 2020-02-06 Transition Claudette Alemantanya 1.2.840.114 [id number] Univers 00:00:00 00:00:00 of Care Rico Zelayay 350.1.13.10 it[place].2.[place] [phone] [facility] 403 Branch 2020-02-03 2020-02-05 Hospital Óscar Hermosillo [facility] 1.2.8 40.114 [id number] Univers 16:55:00 20:40:00 Encounter Martha Rowe 350.1.13.10 ity of [place] 4[place].2.[place] [phone] [facility] 081 Branch 2020-01-17 2020-01-17 Outpatient [facility] [id number] Univers 13:30:00 13:30:[address] [facility] 2019-12-02 2019-12-02 Outpatient R [facility] [id number] Univers 15:00:00 15:00:[address] [facility] 2019-11-16 2019-11-21 Hospital Lopez Velazquez [facility] 1.2.840 .114 [id number] Univers 16:35:23 14:12:00 Encounter Heather Hermosillo 350.1.13.1 0 ity of [place] 4[place].2.[place] [phone] [place] 700401 Branch 2019-09-17 2019-09-18 [facility] 1.2.214.005 [id number] Univers 20:30:04 00:41:00 Valery Perez 350.1.13.10 ity of [place] 4[place].2.686 [place] [phone] [facility] 084 [place] 2019-09-17 2019-09-18 Emergency X ALFIE [facility] ERT [id number] Univers 20:30:04 00:41:00 WAKILI ity [facility] 2019-09-05 2019-09-05 Outpatient [facility] [id number] Univers 14:00:00 14:00:00 SENDIL ity [facility] 2019-09-05 2019-09-05 Telemedici [facility] 1.2.840.114 [id number] Univers 08:17:17 08:47:17 ne Visit Sendil Hannah Perez 350.1.13.10 ity of [place].2.[place] Profess[place] [phone] Ct dicin nal [address] [place] [address] 2019-09-05 2019-09-05 Telephone [facility] 1.2.117.836 [id number] Univers 00:00:00 00:00:00 Sendil Hannah Perez 350.1.13.10 it[place] of [place].2.[place] Profess[place] [phone] Ct dicin nal [address] [place] [address] 2019-09-03 2019-09-03 Outpatient R ANNA [facility] [id number] Univers 10:30:00 10:30:00 SENDIL ity [facility] 2019-08-20 2019-08-20 Telephone [facility] 1.2.296.039 [id number] Univers 00:00:00 00:00:00 Nika SHAW 350.1.13.10 ity of [place].2.7.2.[place] [phone] Ct dical 390 [place] 2019-08-19 2019-08-19 Refill Nancy Lee 1.2.840.114 [id number] Univers 00:00:00 00:00:00 Lola Figueroa 350.1.13.10 it y of Hospital 4.2.7.2.686 [place] [phone] [facility] 090 [place] 2019-08-16 2019-08-16 Refill Nancy Lee 1.2.840.114 [id number] Univers 00:00:00 00:00:00 Lola Carolina 350.1.13.10 it y of [facility] 4.2.7.2.686 [place] [phone] [facility] 090 Branch 2019-08-15 2019-08-15 [facility] 1.2.840.114 [id number] Univers 11:58:21 15:28:00 Demarcus Perez 350.1.13.10 i ty of [place] 4[place].2.[place] [phone] [facility] 084 Branch 2019-08-15 2019-08-15 Emergency [facility] ERT [id number] Univers 11:58:21 15:28:00 DEMARCUS ity [facility] 2019-08-15 2019-08-15 Case JOSE Castillo 1.2.840.114 [id number] Univers 00:00:00 00:00:00 Management Ninfa FIGUEROA 350.1.13.10 ity [facility] 4.2.7.2.686 [place] [phone] [facility] 008 Branch 2019-08-15 2019-08-15 Telephone Anna [facility] 1.2.157.939 [id number] Univers 00:00:00 00:00:00 Ninfa Perez 350.1.13.10 ity of [place] 4.2.7.2.[place] [facility] [phone] [facility] 059 [facility] 2019-08-12 2019-08-12 Transition Latrice Ramirez 1.2.840.114 [id number] Univers 00:00:00 00:00:00 of Care Joan Duque 350.1.13.10 it[place] of [place] 4.2.7.2.[place] [phone] [facility] 403 Branch 2019-08-06 2019-08-09 Emergency Wayne Can [facility] 1.2.840. 114 [id number] Univers 14:06:47 15:19:00 Lizett Gerardo 350.1.13.10 ity of [place] 4.[place].2.[place] [phone] [facility] 081 Branch 2019-08-06 2019-08-09 Outpatient X BRETT [facility] [id number] Univers 14:06:47 15:19:[address] [facility] 2019-08-06 2019-08-06 Outpatient R TRAVIS, [facility] [id number] Univers 13:30:00 13:30:00 RICHOMND ity o f [facility] 2019-08-06 2019-08-06 Outpatient R TRAVIS, [facility] [id number] Univers 11:00:00 11:00:00 RICHMOND ity o f [facility] 2019-08-06 2019-08-06 Outpatient R TRAVIS, [facility] [id number] Univers 11:00:00 11:00:00 JUNIEJULIANN baugh o f [facility] 2019-08-06 2019-08-06 Orders Doctor JOSE 1.2.840.114 [id number] Univers 00:00:00 00:00:00 Only Unassigned, [place] 350.1.13.10 ity of [place] [facility] 4.2.7.2.686 [place] J as [phone] [facility] 009 Branch 2019-07-19 2019-07-19 Transition Latrice French 1.2.840.114 [id number] Univers 00:00:00 00:00:00 of Care Gilda Duque 350.1.13.10 it y of [place] 4.2.7.2.[place] [phone] [facility] 403 Branch 2019-07-17 2019-07-18 Emergency Valery Carrillo 1.2.840 .114 [id number] Univers 21:36:10 21:05:00 Abu-Josy Tareq [place] 350.1.13.1 0 ity of Hospital 4.2.7.2.686 [place] as [phone] [facility] 090 Branch 2019-07-17 2019-07-18 Outpatient X ABU-JOSY, [facility] [id number] Univers 21:36:10 21:05:00 ABU-JOSY, TAREQ ity of [facility] 2019-07-03 2019-07-03 Transition Latrice French 1.2.840.114 [id number] Univers 00:00:00 00:00:00 of Care Gilda Duque 350.1.13.10 it y [place] 4[place].7.2.[place] [phone] [address] 2019-07-01 2019-07-01 Transition Latrice French 1.2.840.114 [id number] Univers 00:00:00 00:00:00 of Care Gilda Duque 350.1.13.10 it y of [place] 4.2.7.2.[place] [phone] [facility] 403 [place] 2019-06-27 2019-06-27 Transition Latrice French 1.2.840.114 [id number] Univers 00:00:00 00:00:00 of Care Gilda Duque 350.1.13.10 it y [place] 4.2.7.2.[place] [phone] [facility] 403 [place] 2019-06-24 2019-06-26 [facility] [id number] Univers 14:51:01 18:37:00 MICHAEL ity [facility] 2019-06-24 2019-06-26 Hospital Janeth Leal 1.2.84 0.114 [id number] Univers 14:51:01 18:37:00 Encounter Michael Shirley 350.1.1 3.10 ity of [facility] 4.2.7.2.686 [place] [phone] [facility] 090 Branch 2019-02-06 2019-02-06 Telephone JOSE Bhatt 1.2.840.114 [id number] Univers 00:00:00 00:00:00 Cortney FIGUEROA 350.1.13.10 i ty of [facility] 4.2.7.2.686 [place] [phone] [facility] 008 Branch 2019-02-05 2019-02-05 Emergency [facility] 1.2.929.946 [id number] Univers 17:30:29 21:52:00 Jyoti Perez 350.1.13.10 i ty of [place] 4[place].2.[place] [phone] [place] [address]404 Branch 2019-01-30 2019-01-30 Transition Claudette Quevedotanya 1.2.840.114 [id number] Univers 00:00:00 00:00:00 of Care Rhonda Duque 350.1.13.10 it y [place] 4.2.7.2.686 [place] [phone] [facility] 403 Branch 2019-01-24 2019-01-29 [facility] Wayne Can 1.2.840.1 14 [id number] Univers 16:01:37 14:55:00 Encounter Dennis Finley 350.1.13.10 ity [facility] 4.2.7.2.686 [place] [phone] [place] [address]409 Branch 2019-01-22 2019-01-22 Transition EmyClaudettetanya 1.2.840.114 [id number] Univers 00:00:00 00:00:00 of Care Rhonda Duque 350.1.13.10 it y of [place] 4.2.7.2.[place] [phone] [facility] 403 Branch 2019-01-16 2019-01-19 [facility] Carlos Allen 1.2.840.11 4 [id number] Univers 23:52:03 14:36:00 Encounter Martha Rowe 350.1.13.10 ity of [place], [facility] 4.2.7.2.686 [place] [phone] [place] [address] Branch 2017-10-23 2017-10-27 Discharged 1 BROOKE [facility] [id number] 17:29:00 16:54:00 Inpatient ALEXIS 90 Luke s Patient [facility] 2017-04-03 2017-04-04 [facility] [id number] 23:17:00 03:53:00 Emergency LAIRD 56 Luke s Room Patient [facility] 2017-03-05 2017-03-09 Discharged ER PHILIP [facility] [id number] 06:54:00 10:58:00 Inpatient NICHELLE 44 Luke s (obs) [facility] 2017-01-04 2017-01-05 Discharged [facility] [id number] 10:33:00 18:56:00 Inpatient 61 Favio s (obs) [facility] Orders Doctor JOSE 1.2.840.114 [id number] Univers 00:00:00 00:00:00 Only Unassigned, [place] 350.1.13.10 ity of [place] [facility] 4.2.7.2.686 Juan J as [phone] Medi uriel 009 Branch Results Test Description Test Time Test Comments Results Result Comments Source Transthoracic echo (TTE) 2022-02-10 17:43:07 Test Item Value Reference Range Interpretation Comme nts Height (test code = 8499776462) in Weight (test code = 0292838346) lbs Systolic BP (test code = 0009616917) mmHg Diastolic BP (test code = 8691964779) mmHg Heart Rate (test code = 3855258038) bpm BSA (test code = 7920764958) 1.86 m2 Ao root diam (test code = 7428889856) 3.10 cm Aortic root (test code = 8903468117) 3.1 cm Ao root annulus (test code = 3.1 cm 2603823505) LVOT diameter (test code = 1.83 cm 5018525702) LVOT area (test code = 4428689999) 2.60 cm2 LVIDD (test code = 7920318708) 4.80 cm Left Ventricular End Diastolic Volume 107.5 mL by Teichholz Method (test code = 5701430) IVS (test code = 8163596869) 1.35 cm Interventricular Septum Diastolic 1.35 cm Thickness by 2D (test code = 2644074) LVPWD (test code = 3973667563) 1.35 cm PW (test code = 2709845897) 1.35 cm 0.6-1.1 EF(Teich) (test code = 1848769372) 30.10 % LVIDS (test code = 8302764829) 4.10 cm Left Ventricular End Systolic Volume 75.1 mL by Teichholz Method (test code = 4322898) FS (test code = 6892314142) 14 % EF - 2D (test code = 26739195) 30.10 % LA size (test code = 2888246725) 4.1 cm TR Peak Haile (test code = 5966999744) 232.4 cm/s Triscuspid Valve Regurgitation Peak mmHg Gradient (test code = 4637062575) LAV(MOD-sp4) (test code = 3537425762) 103.10 mL E wave decelartion time (test code = 0.15 s 9394845884) MV stenosis pressure 1/2 time (test 44.6 ms code = 8345672601) MV Peak E Haile (test code = 110.2 cm/s 0780439291) MV Peak A Haile (test code = 28.7 cm/s 7656779827) E/A ratio (test code = 1653497548) ratio MR max PG (test code = 7520533672) 78.70 mm[Hg] MR max haile (test code = 9759638420) 443.40 cm/s Mr max haile (test code = 0271260275) 443.4 m/s MV Prop V (test code = 8290613864) 45.00 cm/s MV E/e' septal (test code = 9.2 cm/s 9491704276) Tapse (test code = 8455069069) 1.53 cm LVOT stroke volume (test code = 41.70 cm3 2780542507) LVOT peak haile (test code = 87.2 cm/s 9138524233) LVOT mn grad (test code = 1301178763) mmHg AV LVOT peak gradient (test code = mmHg 4581068558) LVOT peak VTI (test code = 15.8 cm 4011675630) LV V1 mean (test code = 5637357303) 51.30 cm/s Aortic valve mean velocity (test code 78.3 cm/s = 5334799825) Ao peak haile (test code = 8381971911) 111.8 cm/s Ao VTI (test code = 6766560332) 21.5 cm AV area by cont VTI (test code = 1.9 cm2 2097373513) AV area peak haile (test code = 2.1 cm2 0053760324) Ao max PG (test code = 8098870727) 5.00 mm[Hg] AV peak gradient (test code = mmHg 3840302975) AV valve area (test code = 1.94 cm2 3002504149) AV mean gradient (test code = mmHg 4147580671) Radiology Study observation (narrative) (test code = 20168-2) DIANE (test code = DIANE) Table formatting [...] lateral and apex.All other segments are normal. [facility] [id number] 12:01:08 Test Item Value Reference Interpretation Comments Range TROPONIN I (test 0.021 ng/mL See_Comment [Automated code = 6000579704) message] The system which generated this result [...] biotin. Lab Interpretation Normal (test code = 14629-3) [facility] 11:50:23 Test Item Value Reference Range Interpretation Comments MAGNESIUM (test code = 0087135795) 1.7 mg/dL 1.7-2.4 Lab Interpretation (test code = Normal 07810-2) [facility]OL[facility] (49540)2022-02-10 11:50:22 Test Item Value Reference Range Interpretation Comments NA (test code = 138 mmol/L 135-145 0224909117) K (test code = 3.9 mmol/L 3.5-5 4787843727) CL (test code = 108 mmol/L 98-108 0220956571) CO2 TOTAL (test code = 24 mmol/L 23-31 6825644520) AGAP (test code = 2-16 7823820643) BUN (test code = 19 mg/dL 7-23 1611963384) GLUCOSE (test code = 117 mg/dL 70-110 H 3354028566) CREATININE (test code = 0.91 mg/dL 0.6-1.25 5730755907) TOTAL BILI (test code = 1.0 mg/dL 0.1-1.0 8015034961) CALCIUM (test code = 8.5 mg/dL 8.6-10.6 L 3072298117) T PROTEIN (test code = 6.4 g/dL 6.3-8.2 5374006491) ALBUMIN (test code = 3.4 g/dL 3.5-5 L 3740237818) ALK PHOS (test code = 177 U/L 34-122 H 0306538316) ALTv (test code = 24 U/L 5-50 1742-6) AST(SGOT) (test code = 38 U/L 13-40 4727703177) eGFR (test code = mL/min/1.73m2 9401317429) DIANE (test code = DIANE) Association of [...] tests). Lab Interpretation Abnormal (test code = 81224-0) [facility] 11:50:22 Test Item Value Reference Range Interpretation Comments PHOSPHORUS (test code = 6264993761) 5.1 mg/dL 2.5-5 H Lab Interpretation (test code = Abnormal 83417-5) [facility] WITH [id number] 11:19:02 Test Item Value Reference Range Interpretation [...] RDW-SD (test code = 48.0 fL 38.5-51.6 72559-3) RDW-CV (test code = 14.2 % 12.1-15.4 788-0) PLT (test code = See_Comment [Automated 777-3) message] The sy stem which generated this result transmitted reference range : 150 - 328 10*3/ ?L. The reference r batsheva was not used to interpret this result as normal/abnormal . MPV (test code = 10.2 fL 9.8-13 20563-8) NRBC/100 WBC (test See_Comment [Automat ed code = 3750633403) message] The system which generated this result transmitted reference range : 0.0 - 10.0 /100 WBCs. The refer ence range was not u sed to interpret th is result as normal/abnormal . NRBC x10^3 (test code See_Comment [Auto mated = 3997743713) message] The s ystem which generated this result transmitted reference range : 10*3/?L. The reference range was not used to interpret this result as normal/abnormal . GRAN MAT (NEUT) % 68.5 % (test code = 770-8) IMM GRAN % (test code 0.40 % = 2586616595) LYMPH % (test code = 19.0 % 736-9) MONO % (test code = 8.3 % 5905-5) EOS % (test code = 3.4 % 713-8) BASO % (test code = 0.4 % 706-2) GRAN MAT x10^3(ANC) 3.65 10*3/uL 1.99-6.95 (test code = 2206970131) IMM GRAN x10^3 (test 0-0.06 code = 8446081374) LYMPH x10^3 (test code 1.01 10*3/uL 1.09-3.23 L = 731-0) MONO x10^3 (test code 0.44 10*3/uL 0.36-1.02 = 742-7) EOS x10^3 (test code = 0.18 10*3/uL 0.06-0.53 711-2) BASO x10^3 (test code 0.01-0.09 = 704-7) Lab Interpretation Abnormal (test code = 35316-5) [facility]2022-01-30 23:33:12 Test Item Value Reference Range Interpretation Comments BNP (test code = 29775-4) 443 pg/mL 0-100 H DIANE (test code = DIANE) Solar Resource Assessor ID - ADRY Lab Interpretation (test Abnormal code = 63449-3) [facility] 23:33:12 Test Item Value Reference Range Interpretation Comments BNP (test code = 08454-3) 443 pg/mL 0-100 H DIANE (test code = DIANE) Solar Resource Assessor ID - ADRY Lab Interpretation (test Abnormal code = 44521-4) [facility]22-01-30 23:33:12 Test Item Value Reference Range Interpretation Comments BNP (test code = 29882-5) 443 pg/mL 0-100 H DIANE (test code = DIANE) Solar Resource Assessor ID - ADRY Lab Interpretation (test Abnormal code = 67563-2) [facility]2022-01-30 23:33:12 Test Item Value Reference Range Interpretation Comments BNP (test code = 66142-4) 443 pg/mL 0-100 H DIANE (test code = DIANE) Solar Resource Assessor ID - ADRY Lab Interpretation (test Abnormal code = 70862-8) [facility]2022-01-30 23:33:12 Test Item Value Reference Range Interpretation Comments BNP (test code = 68376-9) 443 pg/mL 0-100 H DIANE (test code = DIANE) Solar Resource Assessor ID - ADRY Lab Interpretation (test Abnormal code = 61524-8) [facility]2022-01-30 23:33:12 Test Item Value Reference Range Interpretation Comments BNP (test code = 30978-5) 443 pg/mL 0-100 H DIANE (test code = DIANE) Solar Resource Assessor ID - ADRY Lab Interpretation (test Abnormal code = 39537-2) [facility]2022-01-30 23:33:12 Test Item Value Reference Range Interpretation Comments BNP (test code = 78056-6) 443 pg/mL 0-100 H DIANE (test code = DIANE) Solar Resource Assessor ID - ADRY Lab Interpretation (test Abnormal code = 04128-9) [facility] (BNP)2022-01-30 23:33:12 Test Item Value Reference Range Interpretation Comments B-TYPE NATRIURETIC PEPTIDE (BEAKER) 443 pg/mL 0-100 H (test code = 700) [employer] Resource Assessor ID - ADRYTROPONIN [id number] 20:57:59 Test Item Value Reference Interpretation Comments Range TROPONIN I (test 0.017 ng/mL See_Comment [Automated code = 5907542425) message] The system which generated this result [...] biotin. Lab Interpretation Normal (test code = 03749-8) [facility] [id number] 20:54:59 Test Item Value Reference Range Interpretation Comments NT-proBNP (test code 6490 pg/mL See_Comment H [Autom ated = 0838416606) message] The system which generated this result transmitted reference range : <=125. The reference range was not used to interpret this result as normal/abnormal . DIANE (test code = DIANE) Biotin has been reported to cause a negative bias, interpret results relative to patient's use of biotin. Lab Interpretation Abnormal (test code = 37766-5) [facility] 20:46:35 Test Item Value Reference Range Interpretation Comments MAGNESIUM (test code = 0326580708) 1.5 mg/dL 1.7-2.4 L Lab Interpretation (test code = Abnormal 12164-6) [facility] (42365)2021-11-09 20:46:34 Test Item Value Reference Range Interpretation Comments NA (test code = 140 mmol/L 135-145 6703762107) K (test code = 3.9 mmol/L 3.5-5.0 2560952552) CL (test code = 111 mmol/L 98-108 H 1501042415) CO2 TOTAL (test code = 16 mmol/L 23-31 L 9017040189) AGAP (test code = 2-16 6534156147) BUN (test code = 14 mg/dL 7-23 0368767106) GLUCOSE (test code = 189 mg/dL 70-110 H 0946321915) CREATININE (test code = 0.66 mg/dL 0.60-1.25 4311595241) TOTAL BILI (test code = 0.8 mg/dL 0.1-1.3 5995699154) CALCIUM (test code = 8.3 mg/dL 8.6-10.6 L 9781492980) T PROTEIN (test code = 6.5 g/dL 6.3-8.2 3106720720) ALBUMIN (test code = 3.3 g/dL 3.5-5.0 L 4798489479) ALK PHOS (test code = 136 U/L 34-122 H 1855767336) ALTv (test code = 18 U/L 5-50 1742-6) AST(SGOT) (test code = 26 U/L 13-40 8362654650) eGFR (test code = mL/min/1.73m2 3152179243) DIANE (test code = DIANE) Association of [...] tests). Lab Interpretation Abnormal (test code = 90348-8) [facility] WITH [id number] 20:33:30 Test Item Value Reference Range Interpretation [...] RDW-SD (test code = 45.4 fL 38.5-51.6 52568-2) RDW-CV (test code = 14.2 % 12.1-15.4 788-0) PLT (test code = See_Comment [Automated 777-3) message] The sy stem which generated this result transmitted reference range : 150 - 328 10*3/ ?L. The reference r batsheva was not used to interpret this result as normal/abnormal . MPV (test code = 9.8 fL 9.8-13.0 63202-6) NRBC/100 WBC (test See_Comment [Automat ed code = 3375513183) message] The system which generated this result transmitted reference range : 0.0 - 10.0 /100 WBCs. The refer ence range was not u sed to interpret th is result as normal/abnormal . NRBC x10^3 (test code <0.01 See_Comment [Auto mated = 9408522111) message] The s ystem which generated this result transmitted reference range : 10*3/?L. The reference range was not used to interpret this result as normal/abnormal . GRAN MAT (NEUT) % 62.3 % (test code = 770-8) IMM GRAN % (test code 0.80 % = 6268769304) LYMPH % (test code = 25.1 % 736-9) MONO % (test code = 6.7 % 5905-5) EOS % (test code = 4.7 % 713-8) BASO % (test code = 0.4 % 706-2) GRAN MAT x10^3(ANC) 4.76 10*3/uL 1.99-6.95 (test code = 5936018306) IMM GRAN x10^3 (test 0.06 10*3/uL 0.00-0.06 code = 3472518014) LYMPH x10^3 (test code 1.92 10*3/uL 1.09-3.23 = 731-0) MONO x10^3 (test code 0.51 10*3/uL 0.36-1.02 = 742-7) EOS x10^3 (test code = 0.36 10*3/uL 0.06-0.53 711-2) BASO x10^3 (test code 0.03 10*3/uL 0.01-0.09 = 704-7) Lab Interpretation Abnormal (test code = 29391-2) [facility]2021-11-09 20:27:39 Test Item Value Reference Range Interpretation Comments POCT GLU (test code = 5118969741) 190 mg/dL 70-110 H Lab Interpretation (test code = Abnormal 03127-0) [facility] [id number] 11:52:00 Test Item Value Reference Range Interpretation Comments GLUCOSE BEDSIDE TESTING (test code = 92 mg/dL 70-110 N GLUBED) GLUCOSE BEDSIDE [id number] 08:05:00 Test Item Value Reference Range Interpretation Comments GLUCOSE BEDSIDE TESTING (test code = 62 mg/dL 70-110 L GLUBED) GLUCOSE BEDSIDE [id number] 20:40:00 Test Item Value Reference Range Interpretation Comments GLUCOSE BEDSIDE TESTING (test code 105 mg/dL 70-110 N = GLUBED) GLUCOSE BEDSIDE [id number] 17:02:00 Test Item Value Reference Range Interpretation Comments GLUCOSE BEDSIDE TESTING (test code 128 mg/dL 70-110 H = GLUBED) GLUCOSE BEDSIDE [id number] 16:37:00 Test Item Value Reference Range Interpretation Comments GLUCOSE BEDSIDE TESTING (test code 105 mg/dL 70-110 N = GLUBED) GLUCOSE BEDSIDE [id number] 08:17:00 Test Item Value Reference Range Interpretation Comments GLUCOSE BEDSIDE TESTING (test code = 88 mg/dL 70-110 N GLUBED) GLUCOSE BEDSIDE [id number] 19:45:00 Test Item Value Reference Range Interpretation Comments GLUCOSE BEDSIDE TESTING (test code 115 mg/dL 70-110 H = GLUBED) GLUCOSE BEDSIDE [id number] 18:13:00 Test Item Value Reference Range Interpretation Comments GLUCOSE BEDSIDE TESTING (test code = 74 mg/dL 70-110 N GLUBED) GLUCOSE BEDSIDE [id number] 17:29:00 Test Item Value Reference Range Interpretation Comments GLUCOSE BEDSIDE TESTING (test code = 44 mg/dL 70-110 LL GLUBED) GLUCOSE BEDSIDE [id number] 12:26:00 Test Item Value Reference Range Interpretation Comments GLUCOSE BEDSIDE TESTING (test code = 96 mg/dL 70-110 N GLUBED) GLUCOSE BEDSIDE [id number] 08:21:00 Test Item Value Reference Range Interpretation Comments GLUCOSE BEDSIDE TESTING (test code = 77 mg/dL 70-110 N GLUBED) GLUCOSE BEDSIDE [id number] 20:12:00 Test Item Value Reference Range Interpretation Comments GLUCOSE BEDSIDE TESTING (test code = 91 mg/dL 70-110 N GLUBED) GLUCOSE BEDSIDE [id number] 16:42:00 Test Item Value Reference Range Interpretation Comments GLUCOSE BEDSIDE TESTING (test code 106 mg/dL 70-110 N = GLUBED) GLUCOSE BEDSIDE [id number] 11:49:00 Test Item Value Reference Range Interpretation Comments GLUCOSE BEDSIDE TESTING (test code = 89 mg/dL 70-110 N GLUBED) GLUCOSE BEDSIDE [id number] 08:22:00 Test Item Value Reference Range Interpretation Comments GLUCOSE BEDSIDE TESTING (test code = 68 mg/dL 70-110 L GLUBED) GLUCOSE BEDSIDE [id number] 20:05:00 Test Item Value Reference Range Interpretation Comments GLUCOSE BEDSIDE TESTING (test code 137 mg/dL 70-110 H = GLUBED) GLUCOSE BEDSIDE [id number] 16:42:00 Test Item Value Reference Range Interpretation Comments GLUCOSE BEDSIDE TESTING (test code = 98 mg/dL 70-110 N GLUBED) GLUCOSE BEDSIDE [id number] 11:13:00 Test Item Value Reference Range Interpretation Comments GLUCOSE BEDSIDE TESTING (test code 118 mg/dL 70-110 H = GLUBED) GLUCOSE BEDSIDE [id number] 07:37:00 Test Item Value Reference Range Interpretation Comments GLUCOSE BEDSIDE TESTING (test code 140 mg/dL 70-110 H = GLUBED) COMPREHENSIVE METABOLIC [id number] 06:34:00 Test Item Value Reference Range Interpretation [...] TOTAL (test code = ALKP) CBC W/AUTO [id number] 06:25:00 Test Item Value Reference Range Interpretation [...] DIFF/SCN CRITERIA = MDIFF) - CT ABDOMEN [id number]/[id number] 03:09:00 [facility] 1960 Sex: M Name: FAITH VANCE [facility] : 1960 Age/S: 60 / M [address] Unit #: [id number] Loc: [place] [address] Phys: Fede Carrera Acct: [id number] Dis Date: Status: ADM IN PHONE #:[phone] Exam Date: 10/31/20201919 FAX #: Reason: NAUSEA, VOMITING, DIARRHEA EXAMS: CPT: [id number] CT ABDOMEN W/CONTRAST 81394 EXAM: - CT ABDOMEN W/CONTRAST LOCATION: H61 [...] 1 Signed Report (CONTINUED) [facility]: 1960 Age[facility] 60 / M [address] Unit #: [id number] Loc: [place] [address] Phys: Fede Horan DO Acct: [id number] Dis Date: Status: ADM IN PHONE #: [phone] Exam Date: 10/31/20201919 FAX #: Reason: NAUSEA, VOMITING, DIARRHEA EXAMS: CPT: [id number] CT ABDOMEN W/CONTRAST 81840<Continued> small bowel wall thickening. The appendix is [...] Nika Martin MD; Fede Carrera DO Technologist:RT Rohan(R)CTDI: DLP: Trnscb Date/Time: 11/01/2020 (0309) tMATTR.TH15 Orig Print D/T: S: 11/01/2020 (026) PAGE 2 Signed ReportGLUCOSE BEDSIDE [id number] 21:34:00 Test Item Value Reference Range Interpretation Comments GLUCOSE BEDSIDE TESTING (test code 161 mg/dL 70-110 H = GLUBED) GLUCOSE BEDSIDE [id number] 17:32:00 Test Item Value Reference Range Interpretation Comments GLUCOSE BEDSIDE TESTING (test code 136 mg/dL 70-110 H = GLUBED) - XR ABDOMEN 1 [id number] 12:44:00 [facility] 1960 Sex: M Name: FAITH VANCE [facility] : 1960 Age/S: 60 / M [address] Unit #: [id number] Loc: [place] [address] Phys: Fede Carrera DO Acct: [id number] Dis Date: Status: ADM IN PHONE #: [phone] Exam Date: 10/31/2020 1227 FAX #: Reason: Abdominal pain in the lower qudarants EXAMS: CPT: [id number] XR ABDOMEN 1 V 66224 Fluoro Time: DAP (Gy m2): Air Kerma [...] DO PAGE1 Signed Report Name: FAITH VANCE : 1960 Age/S: 60 / M [address] Unit #: [id number] Loc: [place] [address] Phys: Fede Carrera DO Acct: [id number] Dis Date: Status: ADM IN PHONE #: [phone] Exam Date: 10/31/2020 1227 FAX #: Reason: Abdominal pain in the lower qudarants EXAMS: CPT: [id number] XR ABDOMEN 1 V 73328 Fluoro Time: DAP (Gy m2): Air Kerma (mGy): < Continued> Technologist: Cecelia Arias RT(R) Trnscb Date/Time: 10/31/2020 (8436) t.KATHRYNR.AGV Orig Print D/T: S: 10/31/2020 (1675) PAGE 2 Signed Report GLUCOSE BEDSIDE [id number] 11:58:00 Test Item Value Reference Range Interpretation Comments GLUCOSE BEDSIDE TESTING (test code 105 mg/dL 70-110 N = GLUBED) GLUCOSE BEDSIDE [id number] 08:01:00 Test Item Value Reference Range Interpretation Comments GLUCOSE BEDSIDE TESTING (test code 106 mg/dL 70-110 N = GLUBED) [id number] 22:46:00 Test Item Value Reference Range Interpretation [...] yby method. Completed by Nursing: NOGLUCOSE BEDSIDE [id number] 21:55:00 Test Item Value Reference Range Interpretation Comments GLUCOSE BEDSIDE TESTING (test code 119 mg/dL 70-110 H = GLUBED) [id number] 19:33:00 Test Item Value Reference Range Interpretation [...] method. Completed by Nursing: NOCoronavirus 2019 nCoV [id number] 18:46:00 Test Item Value Reference Range Interpretation Comments Coronavirus 2019 nCoV Negative Negative Per ma nufacturer, Bedside (test code = negativ e results should [id number]) be treated aspresumptive a nd, if inconsistent [...] with COVID-19. Spec Comments: NNT PRO-BRAIN NATRIURETIC [id number] 15:51:00 Test Item Value Reference Range Interpretation Comments NT PRO-BRAIN NATRIURETIC PEPTI 6079 PG/ML 0-100 H (test code = PROBNP) Completed by Nursing: [id number] 15:51:00 Test Item Value Reference Range Interpretation [...] yby method. Completed by Nursing: NOBASIC METABOLIC [id number] 15:51:00 Test Item Value Reference Range Interpretation [...] Completed by Nursing: NO- XR CHEST 1 [id number] 15:42:00 [facility] 1960 Sex: M Name: FAITH VANCE [facility] : 1960 Age/S: 60 / M [address] Unit #: [id number] Loc: [place] [address] Phys: Todd Jacobo MD Acct: [id number] Dis Date: Status: PRE ER PHONE #: [phone] Exam Date: 10/30/2020 9581 FAX #: Reason: chest pain EXAMS: CPT: [id number] XR CHEST 1V 31805 Fluoro Time: DAP (Gy m2): Air Kerma [...] Ruiz M.D. CC: Nika Martin MD; Todd Jacoob MD PAGE 1 Signed Report Name: FAITH VANCE [facility] : 1960 Age/S: 60 / M [address] Unit #: [id number] Loc: [place] [address] Phys: Todd Jacobo MD Acct: [id number] Dis Date: Status: PRE ER PHONE #: [phone] Exam Date: 10/30/2020 1521 FAX #: Reason: chest pain EXAMS: CPT: [id number] XR CHEST 1 V 21420 Fluoro Time: DAP (Gy m2): Air Kerma (mGy): <Continued> Technologist: Kim Andrews RT(R)(CT) Trnscb Date/Time: 10/30/2020 (1542) t.KATHRYNR.RB24 Orig Print D/T:S: 10/30/2020 (0613) PAGE 2 Signed ReportCBC W/O [id number] 15:31:00 Test Item Value Reference Range Interpretation [...] 9.70 fL 7.0-9.6 H MPV) BASIC METABOLIC [id number] 21:42:00 Test Item Value Reference Range Interpretation [...] 9.6 mg/dL 8.0-10.5 N CA) HEPATIC FUNCTION [id number] 21:42:00 Test Item Value Reference Range Interpretation [...] 114 IUnit/L 20-125 N code = ALKP) [id number] 21:42:00 Test Item Value Reference Range Interpretation Comments LIPASE (test code = LIP) 70 U/L 13-57 H [id number] 21:42:00 Test Item Value Reference Range Interpretation [...] by method. UA RFLX MICR CULT IF [id number] 21:37:00 Test Item Value Reference Range Interpretation [...] INDWELLING CATH (CEDENO)Cath Status: Under 72 hoursPROTHROMBIN [id number] 21:35:00 Test Item Value Reference Range Interpretation [...] Mec hanical prosthetic valv es (high risk), 2 .5 - 3.5 Presence of Lupus Anticoagulant o r Antiphospholipi d Antibodies, Pre vention of systemic emb olism - Acute Myocardia l Infarction (to prevent recurrent infar ct). THROMBOPLASTIN TIME [id number] 21:35:00 Test Item Value Reference Range Interpretation Comments THROMBOPLASTIN TIME 41.7 Seconds 25.0-39.5 H Therape utic Range: PARTIAL (test code = 50.4 - 88.3 Seconds PTT) Effective 09/04/2018 CBC W/AUTO [id number] 21:29:00 Test Item Value Reference Range Interpretation [...] = MDIFF) - CT ABD PELVIS W/O [id number] 20:49:00 [facility]: FAITH VANCE : 1960 Sex: M Name: FAITH VANCE [facility] [place] : 1960 Age/S: 60 / M [address] Unit #: [id number] Loc: [place] [address] Phys: Gisel Eugene [facility] Acct: [id number] Dis Date: Status: REG ERPHONE #: [phone] Exam Date: 08/23/20202024 FAX #: [phone] Reason: DIFFUSE ABDOMINAL PAIN EXAMS: CPT CODE: [id number] CT ABD PELVIS W/O CONT 71851 Clinical indication: Diffuse abdominal pain.Contrast - No [...] left pleural effusion. Linear atelectasis/scarring in the rightlung base. Hepatobiliary: Diffuse hepatic steatosis. Surgical removal [...] PAGE 1 Signed Report (CONTINUED)Name: FAITH VANCE [facility] [place] : 1960 Age/S: 60 / M [address] [place] [address] Blvd Unit #: [id number] Loc: [place] [address] Phys: Gisel Eugene Acct: [id number] Dis Date: Status: REG ER PHONE #: [phone] Exam Date: 08/23/20202024 FAX #: [phone] Reason: DIFFUSE ABDOMINAL PAIN EXAMS: CPT CODE: [id number] CT ABD PELVIS W/O CONT 31460 <Continued> Peritoneum/Other: No extraluminal air. No extraluminal [...] by Maria Eugenia Katz on 08/23/2020 at 2048 Reported and signed by: Irene Katz M.D. CC: Alf Hope DO; Carol Martin MD; Gisel Eugene Technologist:RT Fanta(R)(CT) CTDI: DLP: Trnscb Date/Time: 08/23/2020 (2048) JhonVB9 Orig Print D/T: S: 08/23/2020 (2051) PAGE 2 Signed [id number] 16:58:00 Test Item Value Reference Range Interpretation Comments GLUBED (test code = 159 MG/DL 70-110 H Performe d by certified GLUBED) extraction operator at [facility] [id number] 11:58:00 Test Item Value Reference Range Interpretation Comments GLUBED (test code = 149 MG/DL 70-110 H Performe d by certified GLUBED) extraction operator at [facility] BASIC METABOLIC [id number] 08:00:00 Test Item Value Reference Range Interpretation [...] 9.9 mg/dL 8.0-10.5 N CA) CBC W/AUTO [id number] 07:08:00 Test Item Value Reference Range Interpretation [...] DIFF REQUIRED (test code NO = MDIFF) [id number] 05:21:00 Test Item Value Reference Range Interpretation Comments GLUBED (test code = 150 MG/DL 70-110 H Performe d by certified GLUBED) extraction operator at [facility] [id number] 21:13:00 Test Item Value Reference Range Interpretation Comments GLUBED (test code = 129 MG/DL 70-110 H Performe d by certified GLUBED) extraction operator at [facility] [id number] 16:48:00 Test Item Value Reference Range Interpretation Comments GLUBED (test code = 116 MG/DL 70-110 H Performe d by certified GLUBED) extraction operator at [facility] [id number] 12:18:00 Test Item Value Reference Range Interpretation Comments GLUBED (test code = 136 MG/DL 70-110 H Performe d by certified GLUBED) extraction operator at [facility] [id number] 12:18:00 Test Item Value Reference Range Interpretation Comments GLUBED (test code = 151 MG/DL 70-110 H Performe d by certified GLUBED) extraction operator at [facility] CBC W/AUTO [id number] 07:32:00 Test Item Value Reference Range Interpretation [...] (test code NO = MDIFF) BASIC METABOLIC [id number] 07:29:00 Test Item Value Reference Range Interpretation [...] code = 9.0 mg/dL 8.0-10.5 N CA) [id number] 05:19:00 Test Item Value Reference Range Interpretation Comments GLUBED (test code = 135 MG/DL 70-110 H Performe d by certified GLUBED) extraction operator at [facility] [id number] 20:31:00 Test Item Value Reference Range Interpretation Comments GLUBED (test code = 189 MG/DL 70-110 H Performe d by certified GLUBED) extraction operator at [facility] [id number] 17:41:00 Test Item Value Reference Range Interpretation Comments GLUBED (test code = 140 MG/DL 70-110 H Performe d by certified GLUBED) extraction operator at [facility] - CTA CHEST FOR [id number] 13:48:00 [facility] 1960 Sex: M Name: FAITH VANCE [facility] : 1960 Age/S: 60 / M [address] [place] [address] Unit #: [id number] Loc: [place] [address] Phys: Gina Gonzalez NP Acct: [id number] Dis Date: Status: ADM IN PHONE #: [phone] Exam Date: 08/12/2020 09 FAX #: [phone] Reason: CP, elevated D-dimer EXAMS: CPT CODE: [id number] [place] [id number] PROCEDURE: CTA CHEST INDICATION: CP, elevated D-dimer; chest pain; rule out PE COMPARISON: CXR 08/10/2020, CT chest 06/24/2017 TECHNIQUE: CTA of the pulmonary arteries was performed with intravenous contrast. Helical imaging performed apices to the lung bases. Multiplanar and 3-D MIP angiographic reconstructions were obtained at the [facility] without direct radiologist supervision. IV CONTRAST: 100 [...] 1 Signed Report (CONTINUED) Name: FAITH VANCE [facility] : 1960 Age/S: 60 / M [address] [place] [address] Blvd Unit #: [id number] Loc: [place] [address] Phys: Gina Gonzalez NP Acct: [id number] Dis Date: Status: ADM IN PHONE #: [phone] Exam Date: 08/12/2020911 FAX #: [phone] Reason: CP, elevated D-dimer EXAMS: CPT CODE: [id number] [place] [address] <Continued> contrast enhancement. No acute abnormality demonstrated. MUSCULOSKELETAL: Healed median sternotomy. No acute skeletal abnormality. IMPRESSION: 1. Negative for pulmonary embolic disease within limitations noted. 2.Atherosclerosis. 3. Coronary arterial calcifications with prior coronary arterial stents and CABG. 4. Interstitial edema. No consolidation. 5. Small bilateral pleural effusions. SL: [id number] at 1348 Reported and signed by: Christiano Piña M.D. CC: Johnie Montanez MD; Gnia Gonzalez NP; Nika Martin MD Technolog ist:Kate Camacho, RT(R)(CT) CTDI: DLP: Trnscb Date/Time: 08/12/2020 (1732) Ashley Orig Print D/T: S: 08/12/2020 (7554) PAGE 2 Signed ReportGLUBED 2020-08-12 11:38:00 Test Item Value Reference Range Interpretation Comments GLUBED (test code = 146 MG/DL 70-110 H Performe d by certified GLUBED) extraction operator at [facility] CBC W/AUTO FAIO2018-18-06 09:17:00 Test Item Value Reference Range Interpretation [...] (test code NO = MDIFF) BASIC METABOLIC [id number] 08:28:00 Test Item Value Reference Range Interpretation [...] code = 8.3 mg/dL 8.0-10.5 N CA) [id number] 08:28:00 Test Item Value Reference Range Interpretation Comments PHOSPHOROUS (test code = PHOS) 3.6 MG/DL 2.5-4.9 N [id number] 08:28:00 Test Item Value Reference Range Interpretation Comments MAGNESIUM (test code = MAG) 1.94 mg/dL 1.80-2.40 N [id number] 07:16:00 Test Item Value Reference Range Interpretation Comments GLUBED (test code = 170 MG/DL 70-110 H Performe d by certified GLUBED) extraction operator at [facility] [id number] 07:16:00 Test Item Value Reference Range Interpretation Comments GLUBED (test code = 137 MG/DL 70-110 H Performe d by certified GLUBED) extraction operator at [facility] [id number] 17:01:00 Test Item Value Reference Range Interpretation Comments GLUBED (test code = 88 MG/DL 70-110 N Performe d by certified GLUBED) extraction operator at [facility] XIQ-[id number] 16:56:00 Test Item Value Reference Range Interpretation Comments ACT-ISTAT (test code 186 SEC 74-137 H Perform ed by certified = ACTI) extraction operator at [facility] [id number]-[id number] 15:03:00 Test Item Value Reference Range Interpretation Comments ACT-ISTAT (test code 235 SEC 74-137 H Perform ed by certified = ACTI) extraction operator at [facility] [id number] 11:33:00 Test Item Value Reference Range Interpretation Comments GLUBED (test code = 97 MG/DL 70-110 N Performe d by certified GLUBED) extraction operator at [facility] [id number] 06:54:00 Test Item Value Reference Range Interpretation Comments GLUBED (test code = 136 MG/DL 70-110 H Performe d by certified GLUBED) extraction operator at [facility] BASIC METABOLIC [id number] 06:00:00 Test Item Value Reference Range Interpretation [...] COMMENTS: To be done morning of Heart [id number] 06:00:00 Test Item Value Reference Range Interpretation Comments PHOSPHOROUS (test code = PHOS) 4.1 MG/DL 2.5-4.9 N COMMENTS: To be done morning of Heart [id number] 06:00:00 Test Item Value Reference Range Interpretation Comments MAGNESIUM (test code = MAG) 1.74 mg/dL 1.80-2.40 L COMMENTS: To be done morning of Heart CathTHROMBOPLASTIN TIME [id number] 05:55:00 Test Item Value Reference Range Interpretation Comments THROMBOPLASTIN TIME 37.9 Seconds 25.0-39.5 N Therape utic Range: PARTIAL (test code = 50.4 - 88.3 Seconds PTT) Effective 09/04/2018 CBC W/AUTO [id number] 05:44:00 Test Item Value Reference Range Interpretation [...] COMMENTS: To be done morning of Heart McuiSJPWUF7925-86-13 05:44:00 Test Item Value Reference Range Interpretation Comments GLUBED (test code = 92 MG/DL 70-110 N Performe d by certified GLUBED) extraction operator at [facility] HGBA1C%2020-08-10 17:22:00 Test Item Value Reference Range Interpretation Comments HGBA1C% (test code = HGBA1C%) 6.6 %A1C 4.8-6.0 H [id number] 17:17:00 Test Item Value Reference Range Interpretation Comments GLUBED (test code = 118 MG/DL 70-110 H Performe d by certified GLUBED) extraction operator at [facility] TSH REFLEX TO [id number] 15:37:00 Test Item Value Reference Range Interpretation Comments TSH REFLEX TO FT4 (test code = 3.19 IU/mL 0.42-5.47 N TSHREFLEX) [id number] 15:37:00 Test Item Value Reference Range Interpretation [...] y by method. COVID 19 Asymptomatic IH [id number] 11:35:00 Test Item Value Reference Range Interpretation [...] y tests. COMMENTS: If not done this jmppcksnbOJQHOLUF-[id number] 11:31:00 Test Item Value Reference Range Interpretation [...] titative results may babak y by method. [id number] 11:28:00 Test Item Value Reference Range Interpretation [...] to interpret this result as normal/abnormal . [id number] 10:48:00 Test Item Value Reference Range Interpretation Comments GLUBED (test code = 158 MG/DL 70-110 H Performe d by certified GLUBED) extraction operator at [facility] B-TYPE NATRIURETIC [id number] 08:19:00 Test Item Value Reference Range Interpretation Comments B-TYPE NATRIURETIC PEPTIDE (test 508.0 PG/ML 0-100 H code = BNP) BASIC METABOLIC [id number] 08:11:00 Test Item Value Reference Range Interpretation [...] 9.1 mg/dL 8.0-10.5 N CA) HEPATIC FUNCTION [id number] 08:11:00 Test Item Value Reference Range Interpretation [...] 174 IUnit/L 20-125 H code = ALKP) [id number] 08:11:00 Test Item Value Reference Range Interpretation Comments MAGNESIUM (test code = MAG) 1.80 mg/dL 1.80-2.40 N [id number] 08:11:00 Test Item Value Reference Range Interpretation [...] may babak y by method. BASIC METABOLIC [id number] 08:09:00 Test Item Value Reference Range Interpretation [...] code = CA) mg/dL 8.0-10.5 HEPATIC FUNCTION [id number] 08:09:00 Test Item Value Reference Range Interpretation Comments TOTAL PROTEIN (test code = PROT) g/dL 6.4-8.2 ALBUMIN (test code = ALB) g/dL 3.4-5.0 BILIRUBIN TOTAL (test code = BILT) mg/dL 0.0-1.0 BILIRUBIN DIRECT (test code = BILD) MG/DL 0.0-0.30 SGOT/AST (test code = AST) IUnit/L 15-37 SGPT/ALT (test code = ALT) IUnit/L 30-65 ALKALINE PHOSPHATASE TOTAL (test IUnit/L 20-125 code = ALKP) [id number] 08:09:00 Test Item Value Reference Range Interpretation Comments MAGNESIUM (test code = MAG) mg/dL 1.80-2.40 [id number] 08:09:00 Test Item Value Reference Range Interpretation [...] results may babak y by method. PROTHROMBIN [id number] 08:06:00 Test Item Value Reference Range Interpretation [...] (to prevent recurrent infar ct). THROMBOPLASTIN TIME [id number] 08:06:00 Test Item Value Reference Range Interpretation Comments THROMBOPLASTIN TIME 44.5 Seconds 25.0-39.5 H Therape utic Range: PARTIAL (test code = 50.4 - 88.3 Seconds PTT) Effective 09/04/2018 CBC W/AUTO [id number] 07:58:00 Test Item Value Reference Range Interpretation [...] NO = MDIFF) - XR CHEST 1 [id number] 07:57:00 [facility] : 1960 Sex: M FAX: Todd Jacobo MD [phone] [place]: St: REG FAX: EktaMartínez JAVIER [phone] Name: FAITH VANCE [facility] Teressa : 1960 Age/S: 60/M [address] [place] [address] Blvd Unit #: [id number] Loc: [place] [address] Phys: Martínez Dash NP Acct: [id number] Dis Date: Status: REG ER PHONE #: [phone] Exam Date: 08/10/2020752 FAX #: [phone] Reason: Chest Pain EXAMS: CPT CODE: [id number] XR CHEST 1 V 09190 Chest single view 08/10/2020 HISTORY: Chest pain. Comparison is made to 05/21/2018 FINDINGS: Pacemaker and midline sternotomy wires are stable. The lungs are hypoinflated. No consolidation or pleural effusion is present. No vascular congestion or interstitial edema is present. Heart size is mildlyenlarged. Aorta is unchanged. IMPRESSION: Hypoinflated lungs. No acute cardiopulmonary process. SL: [id number] at 0757 Reported and signed by: Khai Kruse M.D. CC: Todd Jacobo MD; Martínez Dash NP Technologist: RT Ann(Tim) Trnscrd Date/Time/By: 08/10/2020 (0757) : By: [email or web address] Orig Print D/T: S: 08/10/2020 (0800) PAGE 1 Signed Report COMPREHENSIVE METABOLIC [id number] 18:02:00 Test Item Value Reference Range Interpretation [...] 50-136 H TOTAL (test code = ALKP) [id number] 18:02:00 Test Item Value Reference Range Interpretation Comments AMYLASE (test code = SERGIO) 82 Unit/L 25-115 N [id number] 18:02:00 Test Item Value Reference Range Interpretation Comments LIPASE (test code = LIP) 185 Unit/L 114-286 N COMPREHENSIVE METABOLIC [id number] 17:56:00 Test Item Value Reference Range Interpretation [...] TOTAL Unit/L 50-136 (test code = ALKP) [id number] 17:56:00 Test Item Value Reference Range Interpretation Comments AMYLASE (test code = SERGIO) Unit/L 25-115 [id number] 17:56:00 Test Item Value Reference Range Interpretation Comments LIPASE (test code = LIP) 185 Unit/L 114-286 N CBC W/AUTO [id number] 17:46:00 Test Item Value Reference Range Interpretation [...] CRITERIA MDIFF) - CT ABD PELVIS W/O [id number] 17:46:00 Name: FAITH VANCE [facility] : 1960 Age/S: 58 / M [address] Unit #: [id number] Loc: [place] [address] Phys: Nila Chester MD Acct: [id number] Dis Date: Status: REG ER PHONE #: [phone] Exam Date: 01/03/2019 8893 FAX #: Reason: llq EXAMS: CPT: [id number] CT ABD PELVIS W/O CONT 54074 Location of dictation: B2 CT abdomen and [...] VANCE : 1960 Age/S: 58 / M [address] Unit #: [id number] Loc: [place] [address] [id number] Dis Date: Status: REG ER PHONE #: [phone] Exam Date: 01/03/2019 3249 FAX #: Reason: llq EXAMS: CPT: [id number] CT ABD PELVIS W/O CONT 93690 <Continued> at 1746 Reported and signed by: Renuka Willett M.D. CC: Nila Chester MD Technologist:Tavon Jurado RT(R)(CT)(MRI) CTDI: DLP: Trnscb Date/Time: 01/03/2019 (1746) [email or web address] Orig Print D/T: S: 01/03/2019 (6863) PAGE 2 Signed ReportBedside [id number] 11:47:00 Test Item Value Reference Range Interpretation Comments Bedside Glucose (test code = 03601-2) 155 70-120 H Meter ID: [id number] Regional Medical Centerodium [id number] 08:31:00 Test Item Value Reference Range Interpretation Comments Sodium Level (test code = 2951-2) 139 136-145 [facility] WorthPotassium [id number] 08:31:00 Test Item Value Reference Range Interpretation Comments Potassium Level (test code = 2823-3) 4.0 3.5-5.1 [facility] WorthChloride Leson7557-16-12 08:31:00 Test Item Value Reference Range Interpretation Comments Chloride Level (test code = 2075-0) 106 98-107 [facility] WorthCarbon Dioxide [id number] 08:31:00 Test Item Value Reference Range Interpretation Comments Carbon Dioxide Level (test code = 8-9) [facility] Fort WorthAnion [id number] 08:31:00 Test Item Value Reference Range Interpretation Comments Anion Gap (test code = 04022-1) 12.0 8-16 [facility] WorthBlood Urea [id number] 08:31:00 Test Item Value Reference Range Interpretation Comments Blood Urea Nitrogen (test code = 12-14 3094-0) [facility] WorthCreatinine2018-06-08 08:31:00 Test Item Value Reference Range Interpretation Comments Creatinine (test code = 2160-0) 0.72 0.72-1.25 [facility] WorthBUN/Creatinine [id number] 08:31:00 Test Item Value Reference Range Interpretation Comments BUN/Creatinine Ratio (test code = 11-13 3097-3) [facility] Fort WorthEstimat Glomerular Filtration [id number] 08:31:00 Test Item Value Reference Range Interpretation Comments Estimat Glomerular Filtration Rate 60- >60 (test code = 62290-2) Ranges were taken from the National Kidney Disease Education Program and the National Kidney Foundation literature.Reference ranges:60 or greater: Ycdwiv91- 59 (for 3 consecutive months): Chronic kidneydisease 15 or less: Kidney failure [facility] WorthGlucose Jmkjn3178-41-27 08:31:00 Test Item Value Reference Range Interpretation Comments Glucose Level (test code = PVO9906) 195 74-118 H [facility] WorthCalcium [id number] 08:31:00 Test Item Value Reference Range Interpretation Comments Calcium Level (test code = 17486-7) 9.0 8.4-10.2 [facility] WorthWhite Blood Nogtd7968-08-34 08:12:00 Test Item Value Reference Range Interpretation Comments White Blood Count (test code = 6690-2) 6.06 4.8-10.8 [facility] WorthRed Blood Mrrdl2768-29-16 08:12:00 Test Item Value Reference Range Interpretation Comments Red Blood Count (test code = 789-8) 4.22 4.3-5.7 L [facility] WorthHemoglobin2018-06-08 08:12:00 Test Item Value Reference Range Interpretation Comments Hemoglobin (test code = 56917-4) 12.5 14.0-18.0 L [facility] WorthHematocrit2018-06-08 08:12:00 Test Item Value Reference Range Interpretation Comments Hematocrit (test code = 4544-3) 36.2 38.2-49.6 L [facility] Fort WorthMean Corpuscular Iieerp5892-35-35 08:12:00 Test Item Value Reference Range Interpretation Comments Mean Corpuscular Volume (test code = 85.8 81-99 787-2) [facility] WorthMean Corpuscular Tqswcthawv5233-23-61 08:12:00 Test Item Value Reference Range Interpretation Comments Mean Corpuscular Hemoglobin (test code 29.6 28-32 = 785-6) [facility] WorthMean Corpuscular Hemoglobin Tuxyfjo3998-18-36 08:12:00 Test Item Value Reference Range Interpretation Comments Mean Corpuscular Hemoglobin Concent 34.5 31-35 (test code = 786-4) [facility] WorthRed Cell Distribution Epxwa9353-93-04 08:12:00 Test Item Value Reference Range Interpretation Comments Red Cell Distribution Width (test code 14.2 11.7-14.4 = 60021-5) [facility] Fort WorthPlatelet Tusql4401-20-34 08:12:00 Test Item Value Reference Range Interpretation Comments Platelet Count (test code = 777-3) 263 140-360 [facility] WorthNeutrophils (%) (Auto)2017-10-27 08:12:00 Test Item Value Reference Range Interpretation Comments Neutrophils (%) (Auto) (test code = 51.2 38.7-80.0 69414-5) [facility] WorthLymphocytes (%) (Auto)2017-10-27 08:12:00 Test Item Value Reference Range Interpretation Comments Lymphocytes (%) (Auto) (test code = 33.7 18.0-39.1 736-9) [facility] WorthMonocytes (%) (Auto)2017-10-27 08:12:00 Test Item Value Reference Range Interpretation Comments Monocytes (%) (Auto) (test code = 9.1 4.4-11.3 5905-5) [facility] WorthEosinophils (%) (Auto)2017-10-27 08:12:00 Test Item Value Reference Range Interpretation Comments Eosinophils (%) (Auto) (test code = 4.8 0.0-6.0 713-8) [facility] WorthBasophils (%) (Auto)2017-10-27 08:12:00 Test Item Value Reference Range Interpretation Comments Basophils (%) (Auto) (test code = 0.7 0.0-1.0 706-2) [facility] Fort WorthIM GRANULOCYTES %2017-10-27 08:12:00 Test Item Value Reference Range Interpretation Comments IM GRANULOCYTES % (test code = IM 0.5 0.0-1.0 GRANULOCYTES %) [facility] WorthNeutrophils # (Auto)2017-10-27 08:12:00 Test Item Value Reference Range Interpretation Comments Neutrophils # (Auto) (test code = 3.1 2.1-6.9 751-8) [facility] WorthLymphocytes # (Auto)2017-10-27 08:12:00 Test Item Value Reference Range Interpretation Comments Lymphocytes # (Auto) (test code = 2.0 1.0-3.2 07030-9) [facility] WorthMonocytes # (Auto)2017-10-27 08:12:00 Test Item Value Reference Range Interpretation Comments Monocytes # (Auto) (test code = 742-7) 0.6 0.2-0.8 [facility] WorthEosinophils # (Auto)2017-10-27 08:12:00 Test Item Value Reference Range Interpretation Comments Eosinophils # (Auto) (test code = 0.3 0.0-0.4 711-2) [facility] WorthBasophils # (Auto)2017-10-27 08:12:00 Test Item Value Reference Range Interpretation Comments Basophils # (Auto) (test code = 704-7) 0.0 0.0-0.1 [facility] Fort WorthAbsolute Immature Granulocyte (sfwr5113-43-22 08:12:00 Test Item Value Reference Range Interpretation Comments Absolute Immature Granulocyte (auto 0.03 0-0.1 (test code = Absolute Immature Granulocyte (auto) [facility] WorthCreatine Kinase [id number] 15:14:00 Test Item Value Reference Range Interpretation Comments Creatine Kinase MB (test code = 3.90 0-5.0 13363-6) [facility] WorthTroponin [id number] 15:14:00 Test Item Value Reference Range Interpretation Comments Troponin I (test code = QJA4240) 0.054 0-0.300 [facility] WorthCreatine Tnabez8666-06-90 15:07:00 Test Item Value Reference Range Interpretation Comments Creatine Kinase (test code = 2157-6) 297 30-200 H [facility] WorthHemoglobin A1c Tjvyjas8880-77-64 08:04:00 Test Item Value Reference Range Interpretation Comments Hemoglobin A1c Percent (test code = 12.6 4.0-7.0 H Hemoglobin A1c Percent) [facility] WorthTriglycerides Csnhb8929-82-15 06:57:00 Test Item Value Reference Range Interpretation Comments Triglycerides Level (test code = 200 0-149 H 2571-8) [facility] WorthCholesterol Tdfsi6695-58-21 06:57:00 Test Item Value Reference Range Interpretation Comments Cholesterol Level (test code = 2093-3) 239 0-199 H Less than 200 mg/dL Low Mvsz344 - 239 mg/dL Borderline Wuhj438 mg/dl and greater High RiskB[facility] Fort WorthLDL Kqvctpfjgip1430-84-95 06:57:00 Test Item Value Reference Range Interpretation Comments LDL Cholesterol (test code = 2089-1) 164 60-130 H [facility] Fort WorthHDL Tplbvvmnzhz2210-81-71 06:57:00 Test Item Value Reference Range Interpretation Comments HDL Cholesterol (test code = 2085-9) 35 40-60 L [facility] WorthCholesterol/HDL Psbjb4691-90-59 06:57:00 Test Item Value Reference Range Interpretation Comments Cholesterol/HDL Ratio (test code = 6.8 3.9-4.7 H 9830-1) [facility] WorthUrine Benzodiazepines Gfssfc8487-77-00 16:18:00 Test Item Value Reference Range Interpretation Comments Urine Benzodiazepines Screen (test NEGATIVE NEGATIVE code = 58282-5) [facility] WorthUrine Cocaine Zkarwd9680-14-80 16:18:00 Test Item Value Reference Range Interpretation Comments Urine Cocaine Screen (test code = NEGATIVE NEGATIVE 3398-5) [facility] Fort WorthUrine Cannabinoids Nprlah6915-69-25 16:18:00 Test Item Value Reference Range Interpretation Comments Urine Cannabinoids Screen (test code NEGATIVE NEGATIVE = 06908-8) THESE RESULTS ARE FOR MEDICAL TREATMENT ONLYTHIS REPORT CONTAINS UNCONFIRMED SCREENING RESULTS*POSITIVE RESULTS WILL BE CONFIRMED BY REFERENCE LAB UPON REQUEST CUT-OFFDRUG CLASS CONCENTRATION ng/mLAmphetamines 1000Methamphetamines 1000Cocaine 300Opiate 300Phencyclidine 25Cannabinoid 50Barbiturates 300Benzodiazepine 300Methadone 300[facility] HospitalU[facility] Methadone Cullzr2295-22-57 16:18:00 Test Item Value Reference Range Interpretation Comments Urine Methadone Screen (test code = NEGATIVE NEGATIVE 22183-2) THESE RESULTS ARE FOR MEDICAL TREATMENT ONLYTHIS REPORT CONTAINS UNCONFIRMED SCREENING RESULTS*POSITIVE RESULTS WILL BE CONFIRMED BY REFERENCE LAB UPON REQUEST CUT-OFFDRUG CLASS CONCENTRATION ng/mLAmphetamines 1000Methamphetamines 1000Cocaine Metabolite 300Opiate 300Phencyclidine 25Cannabinoid 50Barbiturates 300Benzodiazepine 300Methadone 300[facility] HospitalUrine Opiates Oipcap0203-94-16 16:18:00 Test Item Value Reference Range Interpretation Comments Urine Opiates Screen (test code = NEGATIVE NEGATIVE 56206-5) [facility] WorthUrine Barbiturates Zgddcx1072-80-69 16:18:00 Test Item Value Reference Range Interpretation Comments Urine Barbiturates Screen (test code NEGATIVE NEGATIVE = 850328366) [facility] WorthUrine Phencyclidine Ygugny7689-25-56 16:18:00 Test Item Value Reference Range Interpretation Comments Urine Phencyclidine Screen (test NEGATIVE NEGATIVE code = 14580-6) [facility] WorthUrine Amphetamines Qawije7461-64-38 16:18:00 Test Item Value Reference Range Interpretation Comments Urine Amphetamines Screen (test code NEGATIVE NEGATIVE = 13221-8) [facility] WorthUrine Methamphetamines Wajpqe5354-67-08 16:18:00 Test Item Value Reference Range Interpretation Comments Urine Methamphetamines Screen (test NEGATIVE NEGATIVE code = Urine Methamphetamines Screen) [facility] WorthProthrombin Ettm1305-16-10 14:13:00 Test Item Value Reference Range Interpretation Comments Prothrombin Time (test code = 5902-2) 13.6 11.9-14.5 [facility] WorthProthromb Time International Nrqjh8893-03-39 14:13:00 Test Item Value Reference Range Interpretation Comments Prothromb Time International Ratio 1.13 (test code = 6301-6) Oral Anticoagulant Therapy INR Values:1. Low Intensity Therapy 1.5 - 2.02. Moderate Intensity Therapy 2.0 - 3.03. High Intensity Therapy(1) 2.5 - 3.54. High Intensity Therapy(2) 3.0 - 4.05. Panic ValueINR > 5.0[facility] WorthActivated Partial Thromboplast Zqkj0373-98-90 14:13:00 Test Item Value Reference Range Interpretation Comments Activated Partial Thromboplast Time 27.6 23.8-35.5 (test code = 81337-4) [facility] WorthTotal Ofkalxqui1173-85-40 14:10:00 Test Item Value Reference Range Interpretation Comments Total Bilirubin (test code = 1975-2) 0.6 0.2-1.2 [facility] Fort WorthAspartate Amino Transf (AST/SGOT)2017-10-23 14:10:00 Test Item Value Reference Range Interpretation Comments Aspartate Amino Transf (AST/SGOT) (test 36 5-34 H code = Aspartate Amino Transf (AST/SGOT)) [facility] WorthAlanine Aminotransferase (ALT/SGPT)2017-10-23 14:10:00 Test Item Value Reference Range Interpretation Comments Alanine Aminotransferase (ALT/SGPT) 34 0-55 (test code = 1742-6) [facility] Fort WorthTotal Hyeltez0600-31-93 14:10:00 Test Item Value Reference Range Interpretation Comments Total Protein (test code = 2885-2) 7.3 6.5-8.1 [facility] Worth[facility]in2018-06[facility] 14:10:00 Test Item Value Reference Range Interpretation Comments Albumin (test code = 1751-7) 4.0 3.5-5.0 [facility] WorthGlobulin2018-06-04 14:10:00 Test Item Value Reference Range Interpretation Comments Globulin (test code = 34132-0) 3.3 2.3-3.5 [facility] WorthAlbumin/Globulin Qtlox8902-03-67 14:10:00 Test Item Value Reference Range Interpretation Comments Albumin/Globulin Ratio (test code = 1.2 0.8-2.0 1759-0) [facility] WorthAlkaline Zqnrmlwuqoc2406-96-76 14:10:00 Test Item Value Reference Range Interpretation Comments Alkaline Phosphatase (test code = 109 40-150 6768-6) [facility] WorthB-Type Natriuretic Zfiucoh3632-39-38 14:10:00 Test Item Value Reference Range Interpretation Comments B-Type Natriuretic Peptide (test code = 92.8 0-100 29961-1) [facility] WorthAmylase Tbxri5103-73-16 14:10:00 Test Item Value Reference Range Interpretation Comments Amylase Level (test code = 1798-8) 126 25-125 H [facility] WorthLipase2018-06-04 14:10:00 Test Item Value Reference Range Interpretation Comments Lipase (test code = 3040-3) 98 8-78 H [facility] WorthD-Dimer Quantitative (PE/DVT)2017-10-23 14:02:00 Test Item Value Reference Range Interpretation Comments D-Dimer Quantitative (PE/DVT) (test 0.49 0.00-0.45 H code = 18765-6) [facility] WorthDirect Uddtszcrb8768-94-90 13:47:00 Test Item Value Reference Range Interpretation Comments Direct Bilirubin (test code = 37574-6) 0.2 0.0-5.0 [facility] WorthMagnesium Nsaag4660-92-77 06:52:00 Test Item Value Reference Range Interpretation Comments Magnesium Level (test code = 13345-4) 1.5 1.3-2.1 [facility] WorthUrine OTQ1067-34-61 05:09:00 Test Item Value Reference Range Interpretation Comments Urine WBC (test code = 5821-4) NONE 0-5 [facility] WorthUrine [id number] 05:09:00 Test Item Value Reference Range Interpretation Comments Urine RBC (test code = 38217-6) NONE 0-5 [facility] WorthUrine Ukacsrro6511-44-51 05:09:00 Test Item Value Reference Range Interpretation Comments Urine Bacteria (test code = 02434-6) NONE NONE [facility] WorthU[facility] Epithelial Ejwbe6787-90-71 05:09:00 Test Item Value Reference Range Interpretation Comments Urine Epithelial Cells (test code = NONE NONE 02356-9) [facility] WorthU[facility] Wqoje3757-18-75 04:46:00 Test Item Value Reference Range Interpretation Comments Urine Color (test code = 5778-6) YELLOW YELLOW [facility] WorthUrine Hjaisoa7915-65-82 04:46:00 Test Item Value Reference Range Interpretation Comments Urine Clarity (test code = 66346-5) CLEAR CLEAR [facility] WorthUrine Specific Zzsqcqd1177-59-79 04:46:00 Test Item Value Reference Range Interpretation Comments Urine Specific [place] (test code = 1.010 1.010-1.025 5811-5) [facility] WorthUrine oA5723-12-04 04:46:00 Test Item Value Reference Range Interpretation Comments Urine pH (test code = 65303-7) 8 5-7 H [facility] WorthU[facility] Leukocyte Qzybaopl9567-22-68 04:46:00 Test Item Value Reference Range Interpretation Comments Urine Leukocyte Esterase (test code NEGATIVE NEGATIVE = 5799-2) [facility] WorthU[facility] Tdupedm7759-98-28 04:46:00 Test Item Value Reference Range Interpretation Comments Urine Nitrite (test code = 80226-7) NEGATIVE NEGATIVE [facility] WorthUrine Swhckil1948-47-62 04:46:00 Test Item Value Reference Range Interpretation Comments Urine Protein (test code = 5804-0) NEGATIVE NEGATIVE [facility] WorthU[facility] Glucose (UA)2017-03-05 04:46:00 Test Item Value Reference Range Interpretation Comments Urine Glucose (UA) (test code = NEGATIVE NEGATIVE 2349-9) [facility] WorthUrine Ymkzrhb9657-19-84 04:46:00 Test Item Value Reference Range Interpretation Comments Urine Ketones (test code = 58988-6) NEGATIVE NEGATIVE [facility] WorthUrine Tfhqinhppgln2394-60-00 04:46:00 Test Item Value Reference Range Interpretation Comments Urine Urobilinogen (test code = 0.2 0.2-1 07310-6) [facility] WorthUrine Rxgwstxbv5411-82-98 04:46:00 Test Item Value Reference Range Interpretation Comments Urine Bilirubin (test code = 1978-6) NEGATIVE NEGATIVE [facility] WorthUrine Ahqxk8368-50-58 04:46:00 Test Item Value Reference Range Interpretation Comments Urine Blood (test code = 74424-0) 2+ NEGATIVE H [facility] WorthCTA BRAIN [place] [address] PatientName: FAITH VANCE MR #: [id number] : 1960 Age/Sex: 57/M Req #: [id number] Adm Physician: ALEXIS COX MD Ordered by: ALEXIS COX MD Report #: [id number] Location: [facility] Room/Bed: [place] [address] Procedure: [id number] CT/CTA BRAIN Exam Date: 10/24/17 Exam Time: [...] on 10/24/17 1633 COPY TO: ALEXIS COX [facility] BRAIN WO [place] [address] PatientName: FAITH VANCE MR #: [id number] : 1960 Age/Sex: 57/M Req #: [id number] Adm Physician: Ordered by: KHAI WAHL MD Report #: [id number] Location: Room/Bed: __ Procedure: [id number] CT/CT BRAIN WO Exam Date: 10/23/17 Exam [...] 10/23/17 1643 COPY TO: KHAI WAHL V [place] [address] PatientName: FAITH VANCE MR #: [id number] : 1960 Age/Sex: 57/M Req #: [id number] Adm Physician: Ordered by: KHAI WAHL MD Report #: [id number] Location: Room/Bed: __ Procedure: [id number] CT/CTA CHEST Exam Date: 10/23/17 Exam Time: [...] below limits set by [facility]).FINDINGS: Lines and Tubes: Pacemaker with leads terminating [...] 10/23/17 1621 [facility]: [facility] [place] [id number] PatientName: FAITH VANCE MR #: [id number] : 1960 Age/Sex: 57/M Req #: [id number] Adm Physician: Ordered by: KHAI WAHL MD Report #: [id number] Location: ER Room/Bed: __ Procedure: [id number] DX/CHEST SINGLE (PORTABLE) Exam Date: 10/23/17 Exam [...] TO: KHAI WAHL V MDCT BRAIN WO [address] [place] [address] PatientName: FAITH VANCE MR #: [id number] : 1960 Age/Sex: 56/M [facility] #: [id number] Req #: [id number] Adm Physician: Ordered by: JACQUELYN MONTES DE OCA MD Report #: [id number] Location: ER Room/Bed: Procedure: [id number] CT/CT BRAIN WO Exam Date: Exam Time: [...] By: BRETT JEAN MD 1 Transcribed By: ADNREE on 04/04/17201 COPY TO: JACQUELYN MONTES DE OCA MDCT CERVICAL SPINE WO [place] [address] PatientName: FAITH VANCE MR #: [id number] : 1960 Age/Sex: 56/M Req #: [id number] Adm Physician: Ordered by: JACQUELYN MONTES DE OCA MD Report #: [id number] Location: ER Room/Bed: Procedure: [id number] CT/CT CERVICAL SPINE WO Exam Date: Exam [...] 6 COPY TO: JACQUELYN MONTES DE [facility] [place] [address] Patient Name: FAITH VANCE MR #: [id number] : 1960 Age/Sex: 56/M Req #: [id number] Adm Physician: Ordered by: JACQUELYN MONTES DE OCA MD Report #: [id number] Location: ER Room/Bed: Procedure: [id number] DX/CHEST SINGLE (PORTABLE) Exam Date: 04/04/17 Exam [...] RIGHT 2-3 VW (+/- PELVIS) [place] [address] PatientName: FAITH VANCE MR #: [id number] : 1960 Age/Sex: 56/M Req #: [id number] Adm Physician: Ordered by: JACQUELYN MONTES DE OCA MD Report #: [id number] Location: ER Room/Bed: Procedure: DX/HIP RIGHT 2-3 [...] DE OCA MDSP LUMBAR, COMPLETE MIN 4VW [place] [address] PatientName: FAITH VANCE MR #: [id number] : 1960 Age/Sex: 56/M Req #: [id number] Adm Physician: Ordered by: JACQUELYN MONTES DE OCA MD Report #: [id number] Location: ER Room/Bed: Procedure: [id number] DX/SP LUMBAR, COMPLETE MIN 4VW Exam Date: 04/04/17 Exam Time: 0108 REPORT STATUS: Signed SP LUMBAR, COMPLETE MIN 4VW Comparison: CT 08/10/2016 Clinical history: Status post fall with lowerback pain Findings: Postoperative changes from posterior fusion from left L4 vertebral body to L5-D5wehouj and posterior decompression. No evidence of hardware [...] JACQUELYN MONTES DE OCA MDUS ABDOMEN COMPLETE [place] [address] PatientName: FAITH VANCE MR #: [id number] : 1960 Age/Sex: 56/M Req #: [id number] [facility] Physician: NICHELLE PALACIOS MD Ordered by: SCOTT AMIN MD Report #: [id number] Location: [facility] Room/Bed: [place] [address] Procedure: [id number] US/US ABDOMEN COMPLETE Exam Date: 03/08/17 Exam [...] BROOKE SAMPSON MD 1040 COPY TO: [facility]Jeff [facility]) [place] [address] PatientName: FAITH VANCE MR #: [id number] : 1960 Age/Sex: 56/M Req #: [id number] Adm Physician: Ordered by: JACQUELYN MONTES DE OCA MD Report #: [id number] Location: ER Room/Bed: Procedure: [id number] DX/CHEST SINGLE (PORTABLE) Exam Date: 03/05/17 Exam [...]
[2022-06-19] MEDS ORDERED: FAMOTIDINE 20 MG/2 ML VIAL IV ONE (10:46)
[2022-06-19] MEDS ORDERED: NA CHLORIDE 0.9% 1,000 ML ONE (10:46)
[2022-06-19 11:04] LABS: Absolute Lymphocytes (CBC) 1.2 K/uL (0.7-4.9); Hematocrit 35.2 % (39.6-49.0); Lymphocytes % 16.4 % (15.3-44.8); MCV 85.9 fL (80-100); MPV 7.5 fL (7.6-11.3); RBC Red Blood Cell Count 4.09 M/uL (4.33-5.43)
[2022-06-19 11:08] LABS: Protime INR 1.43
[2022-06-19 11:10] LABS: SARS-CoV-2 Antigen Rapid Res Negative (Negative)
--- NOTE | 2022-06-19 11:17 | RAD REPORT ---
EXAM DESCRIPTION: RAD - Chest Single View - 06/19/2022 11:02 am CLINICAL HISTORY: CHEST PAIN COMPARISON: Chest Single View dated 06/06/2022; Chest Single View dated 06/03/2022; Chest Single View dated 03/02/2022; Chest Single View dated 02/21/2022 FINDINGS: Lines: Pacemaker. Lungs: Bilateral hazy airspace disease. Pleural: Probable small effusions . Cardiac: Cardiomegaly. Mediastinum: Within normal limits. Bones: No acute fractures. Sternotomy. Other: None IMPRESSION: Pulmonary edema similar to 06/06/2022.
[2022-06-19 11:31] LABS: Albumin 2.6 g/dL (3.4-5.0); Bilirubin Direct 0.3 mg/dL (0-0.2); Bilirubin Total 0.8 mg/dL (0.2-1.0); Protein, Total 6.8 g/dL (6.4-8.2); Troponin High Sensitivity 28.4 pg/mL (<58.9)
[2022-06-19 11:32] LABS: Potassium 4.2 mmol/L (3.5-5.1)
[2022-06-19] MEDS ORDERED: FUROSEMIDE 40 MG/4 ML VIAL ONE (12:46)
[2022-06-19 12:49] LABS: Urine Blood 3+ (Negative); Urine Glucose Negative (Negative); Urine Protein 3+ (Negative)
[2022-06-19 13:02] LABS: Barbiturates NEGATIVE (NEGATIVE); Benzodiazepines NEGATIVE (NEGATIVE); Cocaine NEGATIVE (NEGATIVE); METHAMPHETAM NEGATIVE (NEGATIVE); Methadone NEGATIVE (NEGATIVE); Opiates NEGATIVE (NEGATIVE); Phencyclidine NEGATIVE (NEGATIVE); THC Cannibis NEGATIVE (NEGATIVE)
[2022-06-19] MEDS ORDERED: MORPHINE 4 MG/ML SYR ONE (13:32)
[2022-06-19] MEDS ORDERED: METOPROLOL TAR 50 MG TAB ONE (13:32)
[2022-06-19] MEDS ORDERED: ENOXAPARIN 60 MG/0.6 ML SQ ONE (13:33)
[2022-06-19] MEDS ORDERED: ONDANSETRON 4 MG/2 ML VIAL ONE (13:33)
--- NOTE | 2022-06-19 13:42 | ER ---
Nurse's Notes [facility] Name: Ernie Rooney Age: 62 yrs Sex: Male : 1960 Arrival Date: 06/19/2022 Time: 10:30 Bed 8 Private MD: Diagnosis: Chest pain, unspecified;Essential (primary) hypertension;Systolic (congestive) heart failure;Patient's noncompliance with medical treatment and regimen Presentation: 06/19 10:32 Chief complaint: EMS states: toned out to pt home for left sided chest pain - radiates ld1 to back and left shoulder. Began 0945 this morning. Pt complaining of being out of medications. Coronavirus screen: At this time, the client does not indicate any symptoms associated with coronavirus-19. Ebola Screen: No symptoms or risks identified at this time. Initial Sepsis Screen: Does the patient meet any 2 criteria? No. Patient's initial sepsis screen is negative. Does the patient have a suspected source of infection? No. Patient's initial sepsis screen is negative. Risk Assessment: Do you want to hurt yourself or someone else? Patient reports no desire to harm self or others. Onset of symptoms was June 19, 2022. 10:32 Method Of Arrival: EMS: [facility] ld1 10:32 Acuity: TONE 3 ld1 10:39 Care prior to arrival: Medication(s) given: ASA, 325 mg. ld1 Triage Assessment: 10:32 General: Appears in no apparent distress. uncomfortable, Behavior is calm, cooperative, ld1 appropriate for age. Pain: Complains of pain in chest Pain radiates to back and anterior aspect of left shoulder Pain currently is 9 out of 10 on a pain scale. Quality of pain is described as sharp, shooting, throbbing, Pain began 1 hour ago. Is continuous. EENT: No signs and/or symptoms were reported regarding the EENT system. Neuro: Level of Consciousness is awake, alert, obeys commands, Oriented to person, place, time, situation. Cardiovascular: Capillary refill < 3 seconds Patient's skin is warm and dry. Rhythm is Chest pain is described as mild, Pain is 9 out of 10 on a pain scale. Respiratory: Airway is patent Respiratory effort is even, unlabored. GI: Abdomen is flat, non-distended. : No signs and/or symptoms were reported regarding the genitourinary system. Derm: No signs and/or symptoms reported regarding the dermatologic system. Musculoskeletal: No signs and/or symptoms reported regarding the musculoskeletal system. Historical: - Allergies: 10:31 Nitroglycerin; ld1 - PMHx: 10:31 Arthritis; Back pain; CAD; CHF; CVA; Depression; Diabetes - NIDDM; Fibromyalgia; GERD; ld1 Hyperlipidemia; Hypertensive disorder; Hypothyroidism; Left sided weakness from previous CVA; Myocardial infarction; Pacemaker; - PSHx: 10:31 CABG; bypass; bilat BKA's; ld1 - Immunization history:: Adult Immunizations up to date, Client reports receiving the 2nd dose of the Covid vaccine. - Social history:: Smoking status: Patient denies any tobacco usage or history of. Patient/guardian denies using alcohol. Screenin:38 [facility] ED Fall Risk Assessment (Adult) History of falling in the last 3 months, ld1 including since admission No falls in past 3 months (0 pts). Abuse screen: Denies threats or abuse. Denies injuries from another. Nutritional screening: No deficits noted. Tuberculosis screening: No symptoms or risk factors identified. Assessment: 10:38 Reassessment: See triage assessmnet. ld1 11:02 Reassessment: No changes from previously documented assessment. Patient and/or family ld1 updated on plan of care and expected duration. Pain level reassessed. 11:26 Reassessment: Patient appears in no apparent distress at this time. No changes from hb previously documented assessment. Patient and/or family updated on plan of care and expected duration. Pain level reassessed. 12:26 Reassessment: Patient appears in no apparent distress at this time. Patient and/or hb family updated on plan of care and expected duration. Pain level reassessed. Patient is alert, oriented x 3, equal unlabored respirations, skin warm/dry/pink. 13:34 Reassessment: Pt c/o chest pain. Notified ERP. See MAR for orders. ld1 15:55 Reassessment: Patient appears in no apparent distress at this time. Patient and/or hb family updated on plan of care and expected duration. Pain level reassessed. Patient is alert, oriented x 3, equal unlabored respirations, skin warm/dry/pink. 16:48 Reassessment: Patient appears in no apparent distress at this time. Patient and/or hb family updated on plan of care and expected duration. Pain level reassessed. Patient is alert, oriented x 3, equal unlabored respirations, skin warm/dry/pink. 18:32 Reassessment: Patient appears in no apparent distress at this time. No changes from ld1 previously documented assessment. Patient and/or family updated on plan of care and expected duration. Pain level reassessed. Patient is alert, oriented x 3, equal unlabored respirations, skin warm/dry/pink. Patient states feeling better. Vital Signs: 10:32 BP 148 / 93; Pulse 91; Resp 20; Temp 97.8(O); Pulse Ox 100% on R/A; Pain 9/10; ld1 10:32 Weight 66.68 kg; ld1 11:02 BP 145 / 99; Pulse 88; Resp 15; Pulse Ox 100% on R/A; Pain 8/10; ld1 12:26 BP 150 / 88; Pulse 92; Resp 17; Pulse Ox 100% on R/A; hb 13:34 BP 141 / 86; Pulse 97; Resp 26; Pulse Ox 100% on R/A; Pain 9/10; ld1 15:55 BP 117 / 80; Pulse 66; Resp 18; Pulse Ox 99% on R/A; hb 16:49 BP 120 / 75; Pulse 65; Resp 16; Pulse Ox 99% on R/A; hb 18:15 BP 111 / 66; Pulse 64; Resp 18; Pulse Ox 98% on R/A; ld1 18:32 BP 118 / 72; Pulse 69; Resp 18; Pulse Ox 99% on R/A; ld1 ED Course: 10:30 Patient arrived in ED. eb 10:31 Yelena Staton, RN is Primary Nurse. ld1 10:32 Arm band placed on right wrist. EKG completed in triage. Results shown to . ld1 10:33 Mustapha Cole MD is Attending Physician. caitlyn 10:34 Triage completed. ld1 10:38 Patient has correct armband on for positive identification. Placed in gown. Bed in low ld1 position. Call light in reach. Side rails up X2. monitoring coordinator on. Pulse ox on. NIBP on. Door closed. Noise minimized. Warm blanket given. 10:38 No provider procedures requiring assistance completed. Maintain EMS IV. Dressing ld1 intact. Good blood return noted. Site clean \T\ dry. Gauge \T\ site: 20G LAC. Patient maintains SpO2 saturation greater than 95% on room air. 11:04 XRAY Chest (1 view) In Process Unspecified. EDMS 12:50 UDS Sent. ld1 13:34 Heather Gaffney MD is Hospitalizing Provider. caitlyn 19:10 IV discontinued, intact, bleeding controlled, No redness/swelling at site. ld1 Administered Medications: 12:29 Discontinued: NS 0.9% 1000 ml IV at 125 ml/hr continuous caitlyn 10:40 Not Given (ems gave aspirin prior to arrivall): Aspirin Chewable Tablet 162 mg PO once ld1 10:58 Drug: Pepcid (famotidine) 20 mg Route: IVP; Site: left forearm; hb 12:50 Follow up: Response: No adverse reaction ld1 10:58 Drug: NS 0.9% 1000 ml Route: IV; Rate: 125 ml/hr; Site: left forearm; hb 12:49 Drug: Lasix (furosemide) 40 mg Route: IVP; Site: left antecubital; ld1 13:35 Follow up: Response: No adverse reaction ld1 13:35 Drug: Lovenox (enoxaparin) 60 mg Route: Sub-Q; Site: abdomen; ld1 13:35 Drug: Lopressor (metoprolol TARTRATE) 50 mg Route: PO; ld1 13:35 Drug: morphine 4 mg Route: IVP; Infused Over: 4 mins; Site: left antecubital; ld1 13:35 Drug: Zofran (Ondansetron) 4 mg Route: IVP; Site: left antecubital; ld1 Medication: 10:38 VIS not applicable for this client. ld1 Outcome: 13:41 Decision to Hospitalize by Provider. caitlyn 19:10 Discharged to home via wheelchair. ld1 19:10 Condition: stable 19:10 Instructed on discharge instructions. 19:11 Patient left the ED. ld1 Signatures: Dispatcher [employer] EDMustapha Duggan MD MD cha Baxter, Heather, RN RN Cristine Kaplan Lauren, RN RN ld1
--- NOTE | 2022-06-19 13:42 | EDPHYS ---
Physician Documentation [facility] Name: Ernie Rooney Age: 62 yrs Sex: Male : 1960 Arrival Date: 06/19/2022 Time: 10:30 Bed 8 Private MD: ED Physician Mustapha Cole HPI: 06/19 13:17 This 62 yrs old Male presents to ER via EMS with complaints of Chest Pain. caitlyn 13:17 The patient or guardian reports chest pain that is located primarily in the substernal caitlyn area. Onset: 2 day(s) ago. Historical: - Allergies: 10:31 Nitroglycerin; ld1 - PMHx: 10:31 Arthritis; Back pain; CAD; CHF; CVA; Depression; Diabetes - NIDDM; Fibromyalgia; GERD; ld1 Hyperlipidemia; Hypertensive disorder; Hypothyroidism; Left sided weakness from previous CVA; Myocardial infarction; Pacemaker; - PSHx: 10:31 CABG; bypass; bilat BKA's; ld1 - Immunization history:: Adult Immunizations up to date, Client reports receiving the 2nd dose of the Covid vaccine. - Social history:: Smoking status: Patient denies any tobacco usage or history of. Patient/guardian denies using alcohol. ROS: 13:31 Constitutional: Negative for fever, chills, and weight loss, Eyes: Negative for injury, caitlyn pain, redness, and discharge, ENT: Negative for injury, pain, and discharge, Neck: Negative for injury, pain, and swelling, Respiratory: Negative for shortness of breath, cough, wheezing, and pleuritic chest pain, Abdomen/GI: Negative for abdominal pain, nausea, vomiting, diarrhea, and constipation, Back: Negative for injury and pain, : Negative for injury, bleeding, discharge, and swelling, MS/Extremity: Negative for injury and deformity, Skin: Negative for injury, rash, and discoloration, Neuro: Negative for headache, weakness, numbness, tingling, and seizure, Psych: Negative for depression, anxiety, suicide ideation, homicidal ideation, and hallucinations, Allergy/Immunology: Negative for hives, rash, and allergies, Endocrine: Negative for neck swelling, polydipsia, polyuria, polyphagia, and marked weight changes, Hematologic/Lymphatic: Negative for swollen nodes, abnormal bleeding, and unusual bruising. 13:31 Cardiovascular: Positive for chest pain, of the chest. Exam: 13:31 Constitutional: This is a well developed, well nourished patient who is awake, alert, caitlyn and in no acute distress. Head/Face: Normocephalic, atraumatic. Eyes: Pupils equal round and reactive to light, extra-ocular motions intact. Lids and lashes normal. Conjunctiva and sclera are non-icteric and not injected. Cornea within normal limits. Periorbital areas with no swelling, redness, or edema. ENT: Nares patent. No nasal discharge, no septal abnormalities noted. Tympanic membranes are normal and external auditory canals are clear. Oropharynx with no redness, swelling, or masses, exudates, or evidence of obstruction, uvula midline. Mucous membranes moist. Neck: Trachea midline, no thyromegaly or masses palpated, and no cervical lymphadenopathy. Supple, full range of motion without nuchal rigidity, or vertebral point tenderness. No Meningismus. Chest/axilla: Normal chest wall appearance and motion. Nontender with no deformity. No lesions are appreciated. Cardiovascular: Regular rate and rhythm with a normal S1 and S2. No gallops, murmurs, or rubs. Normal PMI, no JVD. No pulse deficits. Respiratory: Lungs have equal breath sounds bilaterally, clear to auscultation and percussion. No rales, rhonchi or wheezes noted. No increased work of breathing, no retractions or nasal flaring. Abdomen/GI: Soft, non-tender, with normal bowel sounds. No distension or tympany. No guarding or rebound. No evidence of tenderness throughout. Back: No spinal tenderness. No costovertebral tenderness. Full range of motion. Male : Normal genitalia with no discharge or lesions. Skin: Warm, dry with normal turgor. Normal color with no rashes, no lesions, and no evidence of cellulitis. MS/ Extremity: Pulses equal, no cyanosis. Neurovascular intact. Full, normal range of motion. Neuro: Awake and alert, GCS 15, oriented to person, place, time, and situation. Cranial nerves II-XII grossly intact. Motor strength 5/5 in all extremities. Sensory grossly intact. Cerebellar exam normal. Normal gait. Psych: Awake, alert, with orientation to person, place and time. Behavior, mood, and affect are within normal limits. 13:31 ECG was reviewed by the Attending Physician. Vital Signs: 10:32 BP 148 / 93; Pulse 91; Resp 20; Temp 97.8(O); Pulse Ox 100% on R/A; Pain 9/10; ld1 10:32 Weight 66.68 kg; ld1 11:02 BP 145 / 99; Pulse 88; Resp 15; Pulse Ox 100% on R/A; Pain 8/10; ld1 12:26 BP 150 / 88; Pulse 92; Resp 17; Pulse Ox 100% on R/A; hb 13:34 BP 141 / 86; Pulse 97; Resp 26; Pulse Ox 100% on R/A; Pain 9/10; ld1 15:55 BP 117 / 80; Pulse 66; Resp 18; Pulse Ox 99% on R/A; hb 16:49 BP 120 / 75; Pulse 65; Resp 16; Pulse Ox 99% on R/A; hb 18:15 BP 111 / 66; Pulse 64; Resp 18; Pulse Ox 98% on R/A; ld1 18:32 BP 118 / 72; Pulse 69; Resp 18; Pulse Ox 99% on R/A; ld1 MDM: 10:33 Patient medically screened. caitlyn 13:32 Differential diagnosis: abnormal EKG, acute myocardial infarction, acute pericarditis, caitlyn congestive heart failure gastroesophageal reflux disease (GERD), hiatal hernia, pancreatitis, pleurisy, pneumonia, pneumothorax, stable angina, thoracic aortic disection, unstable angina. HEART Score: History: Moderately Suspicious (1), ECG: Significant ST-deviation (2), Age: > 45 and < 65 years (1), Risk Factors: > or = 3 Risk factors for atherosclerotic disease (2), [Hypercholesterolemia] [Hypertension] [DM] [Obesity] Troponin: < or = 1 x Normal Limit (0). The patient was given aspirin in the Emergency Department. TARA Risk Score: 1 - Three or more CAD risk factors, 1- Known CAD, 1 - ASA use in past 7 days, TOTAL SCORE = 3. Data reviewed: vital signs, nurses notes, lab test result(s), EKG, radiologic studies, plain films. Consideration of Admission/Observation Patient was admitted/placed on observation. Management of patient was discussed with the following: Hospitalist: DR GAFFNEY. I considered the following discharge prescriptions or medication management in the emergency department Medications were administered in the Emergency Department. See MAR. Test considered but Not performed: CT: CT CHEST NOT DONE. 06/19 10:35 Order name: Basic Metabolic Panel; Complete Time: 12:20 06/19 10:35 Order name: CBC with Diff; Complete Time: 12:20 06/19 10:35 Order name: LFT's; Complete Time: 12:20 06/19 10:35 Order name: Magnesium; Complete Time: 12:20 06/19 10:35 Order name: NT PRO-BNP; Complete Time: 12:20 06/19 10:35 Order name: PT-INR; Complete Time: 12:20 06/19 10:35 Order name: Troponin HS; Complete Time: 12:20 06/19 10:35 Order name: XRAY Chest (1 view); Complete Time: 12:20 06/19 10:35 Order name: Lipase; Complete Time: 12:20 06/19 10:35 Order name: UDS; Complete Time: 13:15 06/19 10:35 Order name: SARS RAPID; Complete Time: 12:20 06/19 12:50 Order name: Urine Dipstick-Ancillary; Complete Time: 13:15 EDMS 06/19 15:05 Order name: Troponin High Sensitivity [facility] 06/19 10:35 Order name: EKG; Complete Time: 10:36 06/19 10:35 Order name: Cardiac monitoring; Complete Time: 10:40 06/19 10:35 Order name: EKG - Nurse/Tech; Complete Time: 10:42 06/19 10:35 Order name: IV Saline Lock; Complete Time: 10:40 06/19 10:35 Order name: Labs collected and sent; Complete Time: 10:58 06/19 10:35 Order name: O2 Per Protocol; Complete Time: 10:40 06/19 10:35 Order name: O2 Sat Monitoring; Complete Time: 10:40 [facility] EC:31 Rate is 89 beats/min. Rhythm is regular. QRS Evans is Normal. SD interval is normal. QRS caitlyn interval is normal. QT interval is normal. No Q waves. T waves are Normal. Clinical impression: Abnormal EKG without significant change and No evidence of ischemia. Interpreted by me. Reviewed by me. Administered Medications: 12: Discontinued: NS 0.9% 1000 ml IV at 125 ml/hr continuous caitlyn 10:40 Not Given (ems gave aspirin prior to arrivall): Aspirin Chewable Tablet 162 mg PO once ld1 10:58 Drug: Pepcid (famotidine) 20 mg Route: IVP; Site: left forearm; hb 12:50 Follow up: Response: No adverse reaction ld1 10:58 Drug: NS 0.9% 1000 ml Route: IV; Rate: 125 ml/hr; Site: left forearm; hb 12:49 Drug: Lasix (furosemide) 40 mg Route: IVP; Site: left antecubital; ld1 13:35 Follow up: Response: No adverse reaction ld1 13:35 Drug: Lovenox (enoxaparin) 60 mg Route: Sub-Q; Site: abdomen; ld1 13:35 Drug: Lopressor (metoprolol TARTRATE) 50 mg Route: PO; ld1 13:35 Drug: morphine 4 mg Route: IVP; Infused Over: 4 mins; Site: left antecubital; ld1 13:35 Drug: Zofran (Ondansetron) 4 mg Route: IVP; Site: left antecubital; ld1 Disposition Summary: 06/19/22 13:41 Hospitalization Ordered Hospitalization Status: Observation caitlyn Provider: Heather Gaffney cha Condition: Fair caitlyn Problem: new caitlyn Symptoms: have improved caitlyn Bed/Room Type: Standard caitlyn Location: [facility] ER HOLD(06/19/22 19:08) dw Room Assignment: ERHOLD-(06/19/22 19:08) dw Diagnosis - Chest pain, unspecified caitlyn - Essential (primary) hypertension caitlyn - Systolic (congestive) heart failure caitlyn - Patient's noncompliance with medical treatment and regimen caitlyn Forms: - Medication Reconciliation Form caitlyn - SBAR form caitlyn Signatures: Dispatcher [employer] Rhonda Rousseau RN RN dw Anderson, Corey, MD MD cha Baxter, Heather, RN RN Yelena Staton RN RN ld1 Corrections: (The following items were deleted from the chart) 19: 13:41 Telemetry/MedSurg (observation) caitlyn dw 19: 13:41 caitlyn dw
[2022-06-19 15:12] VITALS: TEMP 98
--- NOTE | 2022-06-19 15:12 | P.SSS ---
Patient History Date of Service: 06/19/22 Reason for admission: CP rule out acute coronary syndrome History of Present Illness: Patient is a 62-year-old gentleman who came to the hospital with chest pain. Patient has had extensive work-up in the past. He has coronary artery disease but after heart catheterization was done once again in April there was no aggressive intervention needed. They recommended continued medical intervention. Pt had no evidence of bypass grafts on the cardiac catheterization. Very unlikely for him to develop worsening atherosclerotic disease within the last month. There is no evidence of a ST elevation myocardial infarction. There is no evidence of new occlusion. Troponin is negative. We will repeat a troponin around 1600 and if this is negative he should be able to discharge with outpatient follow-up. Patient states that he feels that it is his anxiety. He will get anxiolytics and pain meds(he takes norco 5/325 at home even though he has allergy listed-it should be removed) Allergies hydrocodone [From [facility]] Adverse Reaction (Verified 06/03/22 23:56) hallucination Home Medications: ALPRAZolam [Xanax] 0.5 mg PO BID PRN #20 tab 06/19/22 Apixaban [Eliquis] 5 mg PO BID #60 tab 06/19/22 Aspirin Chewable [Aspirin Chewable*] 81 mg PO DAILY #30 tab.chew 06/19/22 Atorvastatin Calcium [Lipitor] 40 mg PO BEDTIME #30 tab 06/19/22 Cyclobenzaprine [Flexeril*] 10 mg PO BID PRN #30 tab 06/19/22 Dicyclomine [Bentyl*] 10 mg PO QID #60 cap 06/19/22 Docusate Sodium 100 mg PO DAILY #30 cap 06/19/22 Furosemide 40 mg PO BID #60 tab 06/19/22 Gabapentin 800 mg PO BID #60 tab 06/19/22 Hydrocodone 10/APAP 325 [Hiram 10/325] 1 tab PO Q6H PRN #30 tab 06/19/22 Levothyroxine [Synthroid*] 50 mcg PO [id number] #30 tab 06/19/22 Metformin HCl 500 mg PO DAILY #30 tab 06/19/22 Metoprolol Succinate 0.5 tab PO DAILY 30 Days #30 tab 06/19/22 Omeprazole 20 mg PO DAILY #30 cap 01/29/23 Spironolactone 25 mg PO DAILY #30 tab 06/19/22 Tamsulosin [Flomax*] 0.4 mg PO DAILY #30 cap 06/19/22 Venlafaxine HCl 75 mg PO BID #60 tab 06/19/22 lisinopriL [Lisinopril] 2.5 mg PO DAILY #30 tab 06/19/22 - Past Medical/Surgical History Diabetic: Yes -: CAD/AZ -: GERD -: Hypertension -: Anxiety/depression -: DM insulin dependent -: Hypothyroidism -: enlarged prostate -: cataract in the left eye -: fibromyalgia -: hyperlipidemia -: neuropathy -: Systolic CHF -: pacemaker placement May 2017 -: triple bypass 2003 4 stents -: back surgeries x 6 -: arthroscopic surgeries bilateral knees -: left forearm rodding -: Cholecystectomy -: Appendectomy -: tonsillectomy Psychosocial/ Personal History: Patient lives at home. He does not work. - Family History Mother -: Heart disease, Hypertension grandparents -: Diabetes, Stroke - Social History Smoking Status: Former smoker Alcohol use: No CD- Drugs: No Caffeine use: No Review of Systems 10-point ROS is otherwise unremarkable Physical Examination - Vital Signs Temperature: 98 F Blood Pressure: 120/70 Pulse: 80 Respirations: 18 Pulse Ox (%): 96 - Physical Exam General: Alert, In no apparent distress, Oriented x3 HEENT: Atraumatic, PERRLA, Mucous membr. moist/pink, EOMI, Sclerae nonicteric Neck: Supple, 2+ carotid pulse no bruit, No LAD, Without JVD or thyroid abnormality Respiratory: Clear to auscultation bilaterally, Normal air movement Cardiovascular: Regular rate/rhythm, Normal S1 S2 Gastrointestinal: Normal bowel sounds, Soft and benign, Non-distended, No tenderness Musculoskeletal: No clubbing, No swelling, No tenderness Integumentary: No rashes Neurological: Normal gait, Normal speech, Normal strength at 5/5 x4 extr, Normal tone, Sensation intact, Cranial nerves 3-12 intact, Normal affect Lymphatics: No axilla or inguinal lymphadenopathy - Studies Laboratory Data (last 24 hrs) 06/19/22 10:56: PT 15.7 H, INR 1.43 06/19/22 10:56: WBC 7.10, Hgb 11.6 L, Hct 35.2 L, Plt Count 371 06/19/22 10:56: Sodium 141, Potassium 4.2, BUN 14, Creatinine 0.85, Glucose 100, Magnesium 2.0, Total Bilirubin 0.8, AST 15, ALT 13 L, Alkaline Phosphatase 176 H, Lipase 120 - Diagnosis (Problem(s)) (1) Atypical chest pain Current Visit: Yes Status: Acute (2) History of CVA with residual deficit Current Visit: No Status: Acute (3) BPH (benign prostatic hyperplasia) Onset Date: 11/08/17 Current Visit: No Status: Chronic Qualifiers: (4) CAD (coronary artery disease) Current Visit: No Status: Chronic Qualifiers: (5) CHF (congestive heart failure) Current Visit: No Status: Chronic Qualifiers: (6) History of left common carotid artery stent placement Onset Date: 11/08/17 Current Visit: No Status: Chronic (7) History of pacemaker Onset Date: 11/08/17 Current Visit: No Status: Chronic (8) Hyperlipidemia Current Visit: No Status: Chronic Qualifiers: (9) Hypertension Current Visit: No Status: Chronic Qualifiers: (10) Hypothyroidism Current Visit: No Status: Chronic Qualifiers: Treatment Summary: And repeat troponin and if this is negative patient should be stable for discharge with outpatient follow-up. He had extensive work-up done recently and in the past for his chest pain. He is never needed any kind of cardiac intervention. We will go ahead and plan to discharge if he continues to do well. We will get anxiolytics and pain control at discharge with outpatient follow-up with pain specialist. - Disposition Discharge Date: 06/19/22 Disposition: ROUTINE DISCHARGE Condition: GOOD Prescriptions: Aspirin Chewable [Aspirin Chewable*] 81 mg PO DAILY #30 tab.chew Dicyclomine [Bentyl*] 10 mg PO QID #60 cap Docusate Sodium 100 mg PO DAILY #30 cap Apixaban [Eliquis] 5 mg PO BID #60 tab Cyclobenzaprine [Flexeril*] 10 mg PO BID PRN #30 tab PRN Reason: Muscle Spasms Tamsulosin [Flomax*] 0.4 mg PO DAILY #30 cap Furosemide 40 mg PO BID #60 tab Gabapentin 800 mg PO BID #60 tab Atorvastatin Calcium [Lipitor] 40 mg PO BEDTIME #30 tab lisinopriL [Lisinopril] 2.5 mg PO DAILY #30 tab Metformin HCl 500 mg PO DAILY #30 tab Metoprolol Succinate 0.5 tab PO DAILY 30 Days #30 tab Hydrocodone 10/APAP 325 [Hiram 10/325] 1 tab PO Q6H PRN #30 tab PRN Reason: Pain Omeprazole 20 mg PO DAILY #30 cap Spironolactone 25 mg PO DAILY #30 tab Levothyroxine [Synthroid*] 50 mcg PO [id number] #30 tab Venlafaxine HCl 75 mg PO BID #60 tab ALPRAZolam [Xanax] 0.5 mg PO BID PRN #20 tab PRN Reason: Anxiety Followup: NONE,NONE [Primary Care Provider] - Patient Discharge Instructions: -DC IV and DC home. -Follow-up with PCP in 1 to 2 weeks. -Follow-up with Cardiology in 1 to 2 weeks. -Please call Dr. Gaffney at [phone] if any questions regarding hospital stay. -Please call nursing station at [phone] if any nursing or medication questions. -Return to the emergency room if symptoms worsen Diet: AHA Activity: Fall precautions Critical Care: No Time Spent Managing Pts Care (In Minutes): 45
[2022-06-19 19:40] VITALS: BP 118/72; O2SAT 99
--- NOTE | 2022-06-21 17:03 | EKG ---
Test Date: 2022-06-19 Test Time: 10:40:06 Television Actor: CALVIN MEASUREMENT RESULTS: Intervals: Rate: 89 ID: [id number] QRSD: 174 QT: 444 QTc: 540 [place]: P: 49 ID: [id number] QRS: -52 T: 113 INTERPRETIVE STATEMENTS: Electronic ventricular pacemaker Compared to ECG 06/03/2022 19:24:51 No significant changes Electronically Signed On 06-21-22 16:58:00 ENDOCRINOLOGY TEACHER by Kavin Keenan
== END 2022-06-19 19:12 | disposition home or self-care (01) ==
LOC: ER 10:29
DX: R07.89 Other chest pain (principal); I10 Essential (primary) hypertension; I50.20 Unspecified systolic (congestive) heart failure; Z91.198 Patient's noncompliance with other medical treatment and regimen for other reason; E78.5 Hyperlipidemia, unspecified; E03.9 Hypothyroidism, unspecified; I69.354 Hemiplegia and hemiparesis following cerebral infarction affecting left non-dominant side; Z20.822 Contact with and (suspected) exposure to COVID-19; Z95.0 Presence of cardiac pacemaker; Z88.5 Allergy status to narcotic agent; Z79.01 Long term (current) use of anticoagulants; Z79.82 Long term (current) use of aspirin; Z89.511 Acquired absence of right leg below knee; Z89.512 Acquired absence of left leg below knee; Z95.818 Presence of other cardiac implants and grafts
CPT/HCPCS: 93005; 85025; 80048; 36415; 83735; 85610; 80076; 81003; 84484 ×2; 83690; 83880; 80307; 71045; 96372; 99285; 87811; J1940; J1650; J7030; J2405

== ENCOUNTER 2022-07-01 23:42 | Emergency (ER) | payer OTHER ==
--- OUTSIDE RECORDS SUMMARY | 2022-07-01 23:52 | XMS REPORT | Continuity of Care Document ---
:1960 Author Organization [facility] t Address [address] [place] [address] Care Team Providers Name Role Phone MONIKA HALL MD Primary Care Physician [id number] Attending Clinician Unavailable Harshal Zhu Attending Clinician Unavailable Finn Shah Attending Clinician Unavailable Doctor Unassigned, [place] Attending Clinician Unavailable Josselyn Harding RN Attending [...] Clinician Unavailable Jameson Mejia DO Attending Clinician Humaira HALL, Lizett Attending Clinician JYOTI CEDENO S Attending Clinician [...] Clinician Unavailable Gina Heath MD Attending Clinician Óscar Sidhu F Attending Clinician Gilda French RN Attending Clinician Jose Guy DO Attending Clinician Alis Garcia MD Attending Clinician [phone] Kaylyn Calvin MD Attending Clinician Tha Gunter MD Attending Clinician THA GUNTER Attending Clinician Unavailable DEIDRE JAIME Attending Clinician Unavailable Johnie Montanez Attending Clinician Unavailable Minnie Cardona MD Attending Clinician Drew Noriega MD Attending Clinician Susanne HALL, Johnie Novak Attending Clinician JOHNIE SKINNER Attending Clinician Unavailable Janeth Leal DO Attending Clinician Cara HALL, Lisa Attending Clinician JOSE SHEARER Attending Clinician Unavailable Janki HALL, Jose Cherry Attending Clinician Gianluca HALL, Kandis Attending Clinician Caio Najera DO Attending Clinician Golden HALL, Stephanie Attending Clinician NINFA CASTILLO K.H. Attending Clinician Unavailable Marcus HALL, Lopez Cardona Attending Clinician Heather Hermosillo MD Attending Clinician Valery Carrillo MD Attending Clinician VALERY CARRILLO Attending Clinician Unavailable Anna HALL, Sendneda K.H. Attending Clinician Nika Martin Attending Clinician Lola Lee MD Attending Clinician Demarcus Schulz Attending Clinician DEMARCUS REEVES Attending Clinician Unavailable Joan Ramirez Attending Clinician LIZETT GERARDO Attending Clinician Unavailable RICHMOND ROBLES Attending Clinician Unavailable Kendra Vaca MD Attending Clinician KENDRA VACA Attending Clinician Unavailable KNEDRA VACA Attending Clinician Unavailable MICHAEL SHIRLEY Attending Clinician Unavailable Casper RAE, Michael Gaxiola Attending Clinician [phone] Nova RAE, Cortney Law Attending Clinician [phone] Emy SCRUGGS, Rhonda Attending Clinician Dennis Finley MD Attending Clinician Carlos Allen MD Attending Clinician ALEXIS COX Attending Clinician Unavailable JACQUELYN MONTES DE OCA Attending Clinician Unavailable NICHELLE PALACIOS Attending Clinician Unavailable [id number] Admitting Clinician Unavailable Nika Martin Admitting Clinician [...] Clinician Unavailable Geoffrey Hill MD Admitting Clinician Wong_Rizwana Admitting Clinician Unavailable AMBIKA FERNANDEZ Admitting Clinician Unavailable Ambika Fernandez MD Admitting Clinician Fede Carrera Admitting Clinician Unavailable Johnie Montanez Admitting Clinician Unavailable Drew Noriega MD Admitting Clinician DREW NORIEGA Admitting Clinician Unavailable Lisa Marroquin MD Admitting Clinician Jose Shearer MD Admitting Clinician Heather Hermosillo MD Admitting Clinician VALERY CARRILLO Admitting Clinician Unavailable DEMARCUS REEVES Admitting Clinician Unavailable Kendra Vaca MD Admitting Clinician EKNDRA VACA Admitting Clinician Unavailable MICHAEL SHIRLEY Admitting Clinician Unavailable Michael Hernandez Admitting Clinician [phone] Malia HALL, Dennis Arreola Admitting Clinician ALEXIS COX Admitting Clinician Unavailable NICHELLE PALACIOS Admitting Clinician Unavailable Payers Payer Name Policy Type Policy Number Effective Date Expiration Date Garfield daugherty [facility] [id number] [employer] [id number] 2018spring 00:00:00 [employer] [id number] [facility] Problems Condition Condition [...] heart 00:00: [place] failure), failure), 00 Medi uirel NYHA class NYHA class Br anch I, [...] Branch Osteomyeli Osteomyeli Disease Active 2019-05 U heatherers tis tis 0-26 ity of 00:00: Medical Branch Preop Preop Disease Active 2019-05 Univers cardiovasc cardiovasc 0-26 it y of ular exam ular exam 00:[place] KALYN (acute KALYN (acute Disease Active 2019-05 U heatherers kidney kidney 0-26 ity of injury) injury) 00:00: [place] 00 Medical Branch Left foot Left foot Disease Active 2019-05 Overview: Univers pain pain 0-25 Formattin ity of 00:00: g of this [place] 00 note Medical might be Branch different from the original. 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 8-29 ity of disease disease 00:00: [place] involving involving 00 Medi uriel curyung curyung Branch coronary coronary artery of artery of curyung curyung heart with heart with angina angina pectoris pectoris Type 2 Type 2 Disease Active 2019- Univers diabetes diabetes 8-29 ity of mellitus mellitus 00:00: [place] without without 00 Medical complicati complicati Br anch on, on, without without long-term long-term current current use of use of insulin insulin Essential Essential Disease Active Uni vers hypertensi hypertensi 01-17 it y of on on 00:00: [place] [address] Medical Branch Other Other Disease Active Univers hyperlipid hyperlipid 01-17 it y of emia emia 00:00: [place] [address] Medical Branch Stroke Stroke Disease Active Univers 5-12 ity of 00:00: [place] [address] Medical Branch Left-sided Left-sided Disease Active U nivers weakness weakness - ity of 00:00: [place] [facility] Left sided Left sided Disease Active U nivers numbness numbness - ity of 00:00: [place] [facility] S/P admn S/P admn Disease [...] angina angina 4-10 ity of 00:00: [place] [facility] Atypical Atypical Disease Active Unive rs chest pain chest pain 2-22 it y of 00:00: [place] [address] Medical Branch Chest pain Chest pain Problem Active [facility] [place] Coronary CAD Problem Active [facility] artery (coronary [facility] disease artery Patient disease) [facility] [place] Diabetic DKA Problem Active [facility]diabetic Esme es is ketoacidos [facility] Hyperglyce Hyperglyce Problem Active [facility] bambi bambi [facility] Hypertensi Hypertensi Problem Active [facility] on [facility] Pancreatit Pancreatit Problem Active [facility] Uncontroll Uncontroll Problem Active [facility] ed ed [facility] diabetes diabetes Patien t mellitus mellitus [facility] Allergies, Adverse Reactions, Alerts Allergy Allergy Status Severity Reaction(s) Onset Inactive Treating Comm ents Source Name Type Date Date Clinician No Known DA Active U [facility] [place] [facility] 00:[facility]: d 00 [facility] No Known DA Active U [facility] Allergie 3- [place] 00:00: d 00 [facility] No Known DA Active U 2017-05 [facility] Allergie 2-31 Clear s 00:00: Mejia 00 [facility] No Known DA Active U 2017-05 [facility] Allergie 2-31 Clear s 00:00: Mejia 00 [facility] No Known DA Active U [facility] Allergie 3- [place] 00:00: e 00 [facility] NO KNOWN Drug Active Univers ALLERGIE Class ity of S [place] [facility] Social History Social Habit Start Date Stop Date Quantity Comments Source History of Passive smoker University of tobacco use [place] [facility] History SDOH University o f Alcohol Frequency [place] M edical Branch History SDOH University o f Alcohol Std [place] Medical Drinks Branch History SDOH University o f Alcohol Binge [place] Medic al Branch History SDOH Food 2022-02-11 2022-02-11 1 Univers ity of Worry 00:00:00 00:00:00 [place] [facility] History SDOH Food 2022-02-11 2022-02-11 1 Univers ity of Scarcity 00:00:00 00:00:00 [place] [facility] History SDOH 2022-02-11 2022-02-11 2 University o f Transport Med 00:00:00 00:00:00 [place] Medic al Branch History SDOH 2022-02-11 2022-02-11 2 University o f Transport Non-Med 00:00:00 00:00:00 [facility] edical Branch Exposure to 2022-01-30 2022-02-09 Not sure University of SARS-CoV-2 00:00:00 20:09:00 [place] Medical (event) Branch Tobacco use and 2022-02-09 2022-02-09 Smokeless tobacco Un iversity of exposure 00:00:00 00:00:00 non-user [facility] Branch Alcohol intake 2022-02-09 2022-02-09 1.71 /d University of 00:00:00 00:00:00 [facility] Tobacco Comment 2022-02-09 2022-02-09 quit 15 years ago Un iversity of 00:00:00 00:00:00 [facility] Education 2021-10-27 2021-10-27 9 University of 00:00:00 00:00:00 [facility] History SDOH 2020-03-16 2020-03-16 3 University o f Financial 00:00:00 00:00:00 [facility] Alcohol Comment 2019-07-18 2019-07-18 quit drinking Univer sity of 00:00:00 00:00:00 2013 but drank [facility] heavily before Branch this Sex Ass[birth year] At [birth year] LUCY Sanders 00:00:00 00:00:00 [facility] Smoking Status Start Date Stop Date Source Ex-smoker 2022-02-09 00:00:00 2022-02-09 00:00:00 Universi ty of [facility] Medications Ordered Filled Start Stop Current Ordering Indication Dosage Frequency Signature Comments Components Source Medication Medication Date Date Medication? Clinician (SIG) Name Name aspirin 81 2021- No [id number] 81mg Take 1 Univers mg chewable 9-23 10-24 tablet by it y of tablet 00:00: 04:59 mouth [place] 00 :00 daily with [facility] for 30 days. glipiZIDE 5 2021- No [id number] 5mg Take 1 Univers mg tablet 9-23 10-24 tablet by ity of 00:00: 04:59 mouth in [place] 00 :00 the Medical morning Branch for 30 days. levothyroxi 2021- No [id number] 50ug Take 1 Univers ne 50 mcg 9-23 10-24 tablet by ity of tablet 00:00: 04:59 mouth [place] 00 :00 every Medical morning Branch for 30 days. lisinopriL 2021- No [id number] 2.5mg Take 1 Univers 2.5 mg 9-23 10-24 tablet by ity of tablet 00:00: 04:59 mouth in [place] 00 :00 the Medical morning Branch for 30 days. spironolact 2021- No [id number] 25mg Take 1 Univers one 25 mg 9-23 10-24 tablet by ity of tablet 00:00: 04:59 mouth in [place] 00 :00 the Medical morning Branch for 30 days. tamsulosin 2021- No [id number] .4mg Take 1 Univers 0.4 mg 24 9-23 10-24 capsule by ity of hr capsule 00:00: 04:59 mouth in [facility] 00 :00 the Medical morning Branch for 30 days. aspirin 81 2021- No [id number] 81mg Take 1 Univers mg chewable 9-23 10-24 tablet by it y of tablet 00:00: 04:59 mouth [place] 00 :00 daily with [facility] breakfast Branch for 30 days. glipiZIDE 5 2021- No [id number] 5mg Take 1 Univers mg tablet 9- 10-24 tablet by ity of 00:00: 04:59 mouth in [place] 00 :00 the [facility] morning [place] for 30 days. levothyroxi 2021- No [id number] 50ug Take 1 Univers ne 50 mcg 9-23 10-24 tablet by ity of tablet 00:00: 04:59 mouth [place] 00 :00 every [facility] morning Branch for 30 days. lisinopriL 2021- No [id number] 2.5mg Take 1 Univers 2.5 mg 9-23 10-24 tablet by ity of tablet 00:00: 04:59 mouth in [place] 00 :00 the [facility] morning [place] for 30 days. spironolact 2021- No [id number] 25mg Take 1 Univers one 25 mg 9-23 10-24 tablet by ity of tablet 00:00: 04:59 mouth in [place] 00 :00 the [facility] for 30 days. tamsulosin 2021- No [id number] .4mg Take 1 Univers 0.4 mg 24 9-23 10-24 capsule by ity of hr capsule 00:00: 04:59 mouth in [facility] 00 :00 the [facility] morning [place] for 30 days. sulfur 2021- No [id number] 5mL 5 mL, Unive rs hexafluorid 02-10 Intravenou i ty of e microsphr 16:30: 16:30 s, ONCE, 1 [place] (LUMASON) 00 :00 dose, On Medica l injection 5 Annie Branch mL 02/10/22 at 1130, Routine
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 member approving Restricted medication : NINFA CASTILLO K.HHortensia traMADoL 0 Yes 50mg 50 mg, Univers (ULTRAM) 02-10 Oral, ity of tablet 50 15:10: Q6HPRN, [place] mg 57 Starting Medical on [facility] 02/10/22 at 1010, Until Discontinu ed, Routine, Pain (scale 7-10) lisinopriL 0 Yes 2.5mg 2.5 mg, Uni vers (PRINIVIL,Z 02-10 Oral, ity of ESTRIL) 14:00: DAILY, [place] tablet 2.5 00 First dose Med ical mg on [facility] Branch 02/10/22 at 0900, Until Discontinu ed, Routine glipiZIDE Yes 5mg 5 mg, Univers (GLUCOTROL) 02-10 Oral, ity of tablet 5 mg 14:00: DAILY, [place] First dose Medical on [facility] 02/10/22 at 0900, Until Discontinu ed, Routine enoxaparin 0 Yes 30mg 30 mg, Unive rs (LOVENOX) 02-10 Subcutaneo ity of injection 14:00: [place], DAILY, [place] 30 mg 00 First dose Medical on [facility] 02/10/22 at 0900, Until Discontinu ed, Routine levothyroxi Yes 50ug 50 mcg, Uni vers ne 02-10 Oral, ity of (SYNTHROID) 11:00: QAM-0600, [place] tablet 50 00 First dose Medi uriel mcg on [facility] 02/10/22 at 0600, Until Discontinu ed, Routine morpHINE (2 2021- No 2mg 2 mg, Slow Univers mg/mL) 02-10 IV Push, ity of injection 2 08:45: 08:01 ONCE, 1 [place] mg 00 :00 dose, On [facility] 02/10/22 at 0345, Routine furosemide 0 Yes 20mg 20 mg, IV Un charley (LASIX) 02-10 Push, Q8H, ity of injection 04:15: [place] [address] [facility] Medical 02/09/22 at Branch 2315, Until [...] First dose Med ical 12.5 mg on Mon Branch 02/09/22 at 2315, Until Discontinu ed, Routine tamsulosin 2021-0 Yes .4mg 0.4 mg, Univ ers (FLOMAX) 02-10 Oral, ity of capsule 0.4 04:15: DAILY, [place] mg 00 First dose Medical on [facility] Branch 02/09/22 at 2315, Until Discontinu ed, Routine gabapentin 2021-0 Yes 300mg 300 mg, Uni vers (NEURONTIN) 02-10 Oral, BID, it y of capsule 300 04:15: First dose [place] mg 00 on Mon [facility] 02/09/22 at Branch 2315, Until Discontinu ed, Routine sennosides 2021-0 Yes 8.6mg 8.6 mg, Uni vers (SENOKOT) 02-10 Oral, BID, ity of tablet 8.6 04:15: First dose [place] mg 00 on Mon [facility] 02/09/22 at Branch 2315, Until Discontinu [...] IV ity of (D50W) 04:01: Push, PRN, [place] injection 56 Starting Medica l 25 mL on Wed Branch 02/09/22 at 2301, Until Discontinu ed, PIERRE, Blood Glucose < or = 70 mg/dL and patient is unable to swallow or has mental status changes. atorvastati 2021- No [id number] 40mg Take 1 Univers n 40 mg -12 03-23 tablet by ity of tablet 00:00: 04:59 mouth at [place] 00 :00 bedtime Medical for 30 Branch days. metoprolol 2021- No [id number] 12.5mg Take 0.5 Univers succinate - 10-23 tablets by ity of XL 25 mg 24 00:00: 04:59 mouth in [place] hr tablet 00 :00 the Medical morning Branch for 30 days. atorvastati 2021- No [id number] 40mg Take 1 Univers n 40 mg -12 03-23 tablet by ity of tablet 00:00: 04:59 mouth at [place] 00 :00 bedtime Medical for 30 Branch days. metoprolol 2021- No [id number] 12.5mg Take 0.5 Univers succinate 02-1023 tablets [...] at 0215, 1 mL gabapentin 2021- No [id number] 300mg Take 1 Univers 300 mg 11-05 capsule by ity of capsule 00:00: 04:59 mouth 3 [place] 00 :00 (three) Medical times Branch daily for 10 days. gabapentin 2021- No [id number] 300mg Take 1 Univers 300 mg 11-05 capsule by ity of capsule 00:00: 04:59 mouth 3 [place] 00 :00 (three) Medical times Branch daily for 10 days. aspirin 81 2021- No [id number] 81mg Take 1 Univers mg chewable 6-16 07-17 tablet by it y of tablet 00:00: 04:59 mouth [place] 00 :00 daily for Medical 30 days. Branch aspirin 81 2021- No [id number] 81mg Take 1 Univers mg chewable 6-16 07-17 tablet by it y of tablet 00:00: 04:59 mouth [place] 00 :00 daily for Medical 30 days. Branch aspirin 81 2021- No [id number] 81mg Take 1 Univers mg chewable 6-16 07-17 tablet by it y of tablet 00:00: 04:59 mouth [place] 00 :00 daily for Medical 30 days. Branch proMETHazin Yes [id number] 25mg Take 1 Univers e 25 mg 6-03 tablet by ity of tablet 00:00: mouth [place] 00 every 6 Medical (six) Branch hours as needed for Nausea and Vomiting (N/V). proMETHazin Yes [id number] 25mg Take 1 Univers e 25 mg 6-03 tablet by ity of tablet 00:00: mouth [place] 00 every 6 Medical (six) Branch hours as needed for Nausea and Vomiting (N/V). proMETHazin 2021-0 Yes [id number] 25mg Take 1 Univers e 25 mg 6-03 tablet by ity of tablet 00:00: mouth [place] 00 every 6 Medical (six) Branch hours as needed for Nausea and Vomiting (N/V). proMETHazin 2021-0 Yes [id number] 25mg Take 1 Univers e 25 mg 6-03 tablet by ity of tablet 00:00: mouth [place] 00 every 6 Medical (six) Branch hours as needed for Nausea and Vomiting (N/V). proMETHazin 2021-0 Yes [id number] 25mg Take 1 Univers e 25 mg 6-03 tablet by ity of tablet 00:00: mouth [place] 00 every 6 Medical (six) Branch hours as needed for Nausea and Vomiting (N/V). proMETHazin 2021-0 Yes [id number] 25mg Take 1 Univers e 25 mg 6-03 tablet by ity of tablet 00:00: mouth [place] 00 every 6 Medical (six) Branch hours as needed for Nausea and Vomiting (N/V). fenofibrate 2021- No [id number] 134mg Take 1 Univers micronized 10-19- capsule by it y of 134 mg 00:00: 04:59 mouth [place] capsule 00 :00 daily for Medical 30 days. Branch lisinopriL 2021- No [id number] 2.5mg Take 1 Univers 2.5 mg 10-19- tablet by ity of tablet 00:00: 04:59 mouth [place] 00 :00 daily for Medical 30 days. Branch fenofibrate 2021- No [id number] 134mg Take 1 Univers micronized 10-19- capsule by it y of 134 mg 00:00: 04:59 mouth [place] capsule 00 :00 daily for Medical 30 days. Branch lisinopriL 2021- No [id number] 2.5mg Take 1 Univers 2.5 mg 10-19- tablet by ity of tablet 00:00: 04:59 mouth [place] 00 :00 daily for Medical 30 days. Branch fenofibrate 2021- No [id number] 134mg Take 1 Univers micronized -19 12- capsule by it y of 134 mg 00:00: 04:59 mouth [place] capsule 00 :00 daily for Medical 30 days. Branch lisinopriL 2021- No [id number] 2.5mg Take 1 Univers 2.5 mg -19 12- tablet by ity of tablet 00:00: 04:59 mouth [place] 00 :00 daily for Medical 30 days. Branch furosemide 2021- No [id number] 40mg Take 1 Univers 40 mg 5-30 -30 tablet by ity of tablet 00:00: 04:59 mouth [place] 00 :00 every Medical morning Branch and evening for 30 days. apixaban 5 2021- No [id number] 5mg Take 1 Univ ers mg tablet -30 -30 tablet by ity of 00:00: 04:59 mouth 2 [place] 00 :00 (two) Medical times [place] daily for 30 days. Indication s: atrial fibrillati on calcitrioL 2021- No [id number] .5ug Take 1 Univers 0.5 mcg -30 -30 capsule by ity o f capsule 00:00: 04:59 mouth [place] 00 :00 daily for Medical 30 days. [place] insulin NPH 2021- No [id number] 5U inject 5 Univers (HUMULIN N 5-30 -30 Units ity of NPH U-100 00:00: 04:59 under the [place] INSULIN) 00 :00 skin every Medic al 100 unit/mL evening Branc h injection for 30 days. atorvastati 2021- No [id number] 40mg Take 1 Univers n 40 mg 5-30 -30 tablet by ity of tablet 00:00: 04:59 mouth at [place] 00 :00 bedtime Medical for 30 Branch days. carvediloL 2021- No [id number] 3.125mg Take 1 Univers 3.125 mg 5-30 -30 tablet by ity o f tablet 00:00: 04:59 mouth 2 [place] 00 :00 (two) Medical times [place] daily with meals for 30 days. furosemide 2021- No [id number] 40mg Take 1 Univers 40 mg 5-30 [...] s: atrial fibrillati on calcitrioL 2021- No [id number] .5ug Take 1 Univers 0.5 mcg 5-30 06-30 capsule by ity o f capsule 00:00: 04:59 mouth [place] 00 :00 daily for Medical 30 days. Branch insulin NPH 2021- No [id number] 5U inject 5 Univers (HUMULIN N 5-30 06-30 Units ity of NPH U-100 00:00: 04:59 under the [place] INSULIN) 00 :00 skin every Medic al 100 unit/mL evening Branc h injection for 30 days. atorvastati 2021- No [id number] 40mg Take 1 Univers n 40 mg 5-30 06-30 tablet by ity of tablet 00:00: 04:59 mouth at [place] 00 :00 bedtime Medical for 30 Branch days. carvediloL 2021- No [id number] 3.125mg Take 1 Univers 3.125 mg 5-30 06-30 tablet by ity o f tablet 00:00: 04:59 mouth 2 [place] 00 :00 (two) Medical times Branch daily with meals for 30 days. furosemide 2021- No [id number] 40mg Take 1 Univers 40 mg 5-30 06-30 tablet by ity of tablet 00:00: 04:59 mouth [place] 00 :00 every Medical morning Branch and evening for 30 days. apixaban 5 No [id number] 5mg Take 1 Univ ers mg tablet 5-30 06-30 tablet by ity of 00:00: 04:59 mouth 2 [place] 00 :00 (two) Medical times Branch daily for 30 days. Indication s: atrial fibrillati on calcitrioL 2021- No [id number] .5ug Take 1 Univers 0.5 mcg 5-30 06-30 capsule by ity o f capsule 00:00: 04:59 mouth [place] 00 :00 daily for Medical 30 days. Branch insulin NPH 2021- No [id number] 5U inject 5 Univers (HUMULIN N 5-30 06-30 Units ity of NPH U-100 00:00: 04:59 under the [place] INSULIN) 00 :00 skin every Medic al 100 unit/mL evening Branc h injection for 30 days. atorvastati 2021- No [id number] 40mg Take 1 Univers n 40 mg 5-30 -30 tablet by ity of tablet 00:00: 04:59 mouth at [place] 00 :00 bedtime Medical for 30 Branch days. carvediloL 2021- No [id number] 3.125mg Take 1 Univers 3.125 mg 5-30 -30 tablet by ity o f tablet 00:00: 04:59 mouth 2 [place] 00 :00 (two) Medical times Branch daily with meals for 30 days. metFORMIN Yes [id number] 500mg Take 1 U nivers 500 mg 3-02 tablet by ity of tablet 00:00: mouth [place] (two) Medical times Branch daily with meals. metFORMIN Yes [id number] 500mg Take 1 U nivers 500 mg 3-02 tablet by ity of tablet 00:00: mouth [place] (two) Medical times Branch daily with meals. metFORMIN Yes [id number] 500mg Take 1 U nivers 500 mg 3-02 tablet by ity of tablet 00:00: mouth [place] (two) Medical times Branch daily with meals. metFORMIN Yes [id number] 500mg Take 1 U nivers 500 mg 3-02 tablet by ity of tablet 00:00: mouth [place] (two) Medical times Branch daily with meals. metFORMIN Yes [id number] 500mg Take 1 U nivers 500 mg 3-02 tablet by ity of tablet 00:00: mouth [place] (two) Medical times Branch daily with meals. metFORMIN 0 Yes [id number] 500mg Take 1 U nivers 500 mg 3-02 tablet by ity of tablet 00:00: mouth 2 [place] (two) Medical times Branch daily with meals. albuterol Yes [id number] 2{puff} Inhale 2 Univers 90 2-21 Puffs 2 ity of mcg/actuati 00:00: (two) [place] on inhaler 00 times Medical daily. Branch collagenase Yes [id number] Use as Univers 250 2-21 directed ity of unit/gram 00:00: by office Juan J as ointment 00 Medical Branch cyclobenzap Yes [id number] 10mg Take 1 Univers rine 10 mg 2-21 tablet by ity of tablet 00:00: mouth 2 [place] 00 (two) Medical times Branch daily as needed for Muscle Spasms. dextrometho Yes [id number] 10mL Take 10 mL Univers rphan-guaif 2-21 [...] for Pain (scale 4-6). melatonin 3 Yes [id number] 3mg Take 1 Univers mg tablet 2-21 tablet by ity o f 00:00: mouth at [place] 00 bedtime. Medical Branch ondansetron Yes [id number] 4mg Take 1 Univers 4 mg 2-21 tablet by ity of disintegrat 00:00: mouth [place] ing tablet 00 every 8 Medica l (eight) Branch hours as needed for Nausea and Vomiting (N/V). albuterol Yes [id number] 2{puff} Inhale 2 Univers 90 2-21 Puffs 2 ity of mcg/actuati 00:00: (two) [place] on inhaler 00 times Medical daily. Branch collagenase Yes [id number] Use as Univers 250 2-21 directed ity of unit/gram 00:00: by office [place] J as ointment 00 Medical Branch cyclobenzap Yes [id number] 10mg Take 1 Univers rine 10 mg 2-21 tablet by ity of tablet 00:00: mouth 2 [place] 00 (two) Medical times Branch daily as needed for Muscle Spasms. dextrometho Yes [id number] 10mL Take 10 mL Univers rphan-guaif 2-21 [...] for Pain (scale 4-6). melatonin 3 Yes [id number] 3mg Take 1 Univers mg tablet 2-21 tablet by ity o f 00:00: mouth at [place] 00 bedtime. Medical Branch ondansetron Yes [id number] 4mg Take 1 Univers 4 mg 2-21 tablet by ity of disintegrat 00:00: mouth [place] ing tablet 00 every 8 Medica l (eight) Branch hours as needed for Nausea and Vomiting (N/V). albuterol Yes [id number] 2{puff} Inhale 2 Univers 90 2-21 Puffs 2 ity of mcg/actuati 00:00: (two) [place] on inhaler 00 times Medical daily. Branch collagenase Yes [id number] Use as Univers 250 2-21 directed ity of unit/gram 00:00: by office Juan J as ointment 00 Medical Branch cyclobenzap Yes [id number] 10mg Take 1 Univers rine 10 mg 2-21 tablet by ity of tablet 00:00: mouth 2 [place] 00 (two) Medical times Branch daily as needed for Muscle Spasms. dextrometho Yes [id number] 10mL Take 10 mL Univers rphan-guaif 2-21 [...] for Pain (scale 4-6). melatonin 3 Yes [id number] 3mg Take 1 Univers mg tablet 2-21 tablet by ity o f 00:00: mouth at [place] 00 bedtime. Medical Branch ondansetron Yes [id number] 4mg Take 1 Univers 4 mg 2-21 tablet by ity of disintegrat 00:00: mouth [place] ing tablet 00 every 8 Medica l (eight) Branch hours as needed for Nausea and Vomiting (N/V). albuterol Yes [id number] 2{puff} Inhale 2 Univers 90 2-21 Puffs 2 ity of mcg/actuati 00:00: (two) [place] on inhaler 00 times Medical daily. Branch collagenase Yes [id number] Use as Univers 250 2-21 directed ity of unit/gram 00:00: by office Juan J as ointment 00 Medical Branch cyclobenzap Yes [id number] 10mg Take 1 Univers rine 10 mg 2-21 tablet by ity of tablet 00:00: mouth 2 [place] 00 (two) Medical times Branch daily as needed for Muscle Spasms. melatonin 3 Yes [id number] 3mg Take 1 Univers mg tablet 2-21 tablet by ity o f 00:00: mouth at [place] 00 bedtime. Medical Branch ondansetron Yes [id number] 4mg Take 1 Univers 4 mg 2-21 tablet by ity of disintegrat 00:00: mouth [place] ing tablet 00 every 8 Medica l (eight) Branch hours as needed for Nausea and Vomiting (N/V). albuterol Yes [id number] 2{puff} Inhale 2 Univers 90 2-21 Puffs 2 ity of mcg/actuati 00:00: (two) [place] on inhaler 00 times Medical daily. Branch collagenase Yes [id number] Use as Univers 250 2-21 directed ity of unit/gram 00:00: by office Juan J as ointment 00 Medical Branch cyclobenzap Yes [id number] 10mg Take 1 Univers rine 10 mg 2-21 tablet by ity of tablet 00:00: mouth 2 [place] 00 (two) Medical times Branch daily as needed for Muscle Spasms. melatonin 3 Yes [id number] 3mg Take 1 Univers mg tablet 2-21 tablet by ity o f 00:00: mouth at [place] 00 bedtime. Medical Branch ondansetron Yes [id number] 4mg Take 1 Univers 4 mg 2-21 tablet by ity of disintegrat 00:00: mouth [place] ing tablet 00 every 8 Medica l (eight) Branch hours as needed for Nausea and Vomiting (N/V). albuterol Yes [id number] 2{puff} Inhale 2 Univers 90 2-21 Puffs 2 ity of mcg/actuati 00:00: (two) [place] on inhaler 00 times Medical daily. Branch collagenase Yes [id number] Use as Univers 250 2-21 directed ity of unit/gram 00:00: by office Juan J as ointment 00 Medical Branch cyclobenzap Yes [id number] 10mg Take 1 Univers rine 10 mg 2-21 tablet by ity of tablet 00:00: mouth 2 [place] 00 (two) Medical times Branch daily as needed for Muscle Spasms. melatonin 3 Yes [id number] 3mg Take 1 Univers mg tablet 2-21 tablet by ity o f 00:00: mouth at [place] 00 bedtime. Medical Branch ondansetron Yes [id number] 4mg Take 1 Univers 4 mg 2-21 tablet by ity of disintegrat 00:00: mouth [place] ing tablet 00 every 8 Medica l (eight) Branch hours as needed for Nausea and Vomiting (N/V). dextrometho 2021- No [id number] 10mL Take 10 mL Univers rphan-guaif 07-12 [...] Brooke Frankel 00:00: 00:00 Patient 00 :00 [facility] Diflunisal Diflunisal 2015- No Todd Wynn [address] [facility] (Dolobid) (Dolobid) 01-17 [facility] 500 Mg 500 Mg 00:00: 00:00 Patient Tablet, 500 Tablet, 500 00 :00 M edical Mg Oral Mg Oral Center Ondansetron Ondansetron 2015- No Todd Wynn [address] [facility] Hcl Hcl 01-17 [place] [facility] (Zofran*) 4 (Zofran*) 4 [...] Yes [address] [facility] [address] Mesylate Mes[facility] [place] (Cardura) 8 (Cardura) 8 P atient Mg [...] [facility] nophen nophen needed for [place] nt ([place] ([facility] 10-325 10-325 Center Tablet) 1 [...] ukes Mg Tablet Mg Tablet Patie nt [facility] Nitroglycer Nitroglycer Yes As Needed [facility] in in [facility] (Nitrostat) (Nitrostat) P atient 0.4 Mg 0.4 Mg Medical Tab.subl Tab.subl Center Omeprazole Omeprazole Yes [address] 20 Mg 20 Mg [facility] Capsule.dr Lind. [facility] Simvastatin Simvastatin Yes [address] 80 Mg 80 Mg [facility] Tablet Tablet Patient [facility] Tamsulosin Tamsulosin Yes Daily [facility] Hcl 0.4 Mg Hcl 0.4 Mg Esme es Cap.er.24h Cap.er.24h [facility] Tramadol Tramadol Yes [address] Hcl Hcl Daily as [facility] (Ultram) 50 (Ultram) 50 needed for Patient Mg Tablet Mg Tablet Pain Medic al Center Venlafaxine Venlafaxine Yes [address] Hcl 75 Mg Hcl 75 Mg [facility] Tab Tab Patient [facility] Albuterol Albuterol 2017- No 1 Twice [...] 40 Ml, 40 Sub-Q Sub-Q Naloxone Naloxone .[address] As Ne[address] [facility] Hcl 0.4 Hcl 0.4 10-15 for [facility] Mg/1 Ml Mg/1 Ml 00:00 Oversedati Navid blanco Disp.syrin, Disp.syrin, :00 on M edical 0.4 Mg 0.4 Mg Center Intraven Intraven Venlafaxine Venlafaxine No 37.[address] Hcl 75 [...] 06-17 [facility] Capsule., Capsule., 00:00 Patient :00 [facility] Insulin Insulin 90 Twice A [facility] Glargine Glargine 05-01 Day [facility] (Lantus) (Lantus) 00:00 Patien t 100 100 :00 Medical Units/Ml Units/Ml Center Ml, 90 Unit Ml, 90 Unit Subcutaneou Subcutaneou sly sly Insulin Insulin [address] Regular, Regular, - Times [...] 25 Mg Oral 25 Mg Oral :00 [facility] Albuterol Albuterol As Needed [facility] Sulfate Sulfate 11-23 as needed Esme es (Ventolin (Ventolin 00:00 for Manjula ent Hfa) 18 Gm Hfa) 18 Gm :00 [facility] Medical Hfa.aer.ad, Hfa.aer.ad, Of Breath [place] 90 Mcg 90 Mcg Inhalation Inhalation Dicyclomine Dicyclomine Twice A [facility] Hcl 10 Mg Hcl 10 Mg 11-23 Day Luke [facility] Capsule, 10 Capsule, 10 00:00 Patient Mg Oral Mg Oral :00 [facility] Methocarbam Methocarbam [address] [...] Mg Oral :00 Medical Center Nitroglycer Nitroglycer 2015- No .4 [...] [facility] 300 Mg 300 Mg 07-31 Times A [facility] Capsule, Capsule, 00:00 Day Patien t 600 Mg Oral 600 Mg Oral :00 [facility] Pregabalin Pregabalin 2013- No 150 Twice [...] Immunizations Ordered Filled Immunization Date Status Comments [facility] Immunization Name Name Influenza Virus 2021-01-16 Completed Universit y of Vaccine 00:00:00 [facility] Influenza Virus 2021-01-16 Completed Universit y of Vaccine 00:00:00 [facility] Influenza Virus 2021-01-16 Completed Universit y of Vaccine 00:00:00 [facility] Influenza Virus 2021-01-16 Completed Universit y of Vaccine 00:00:00 [facility] Influenza Virus 2021-01-16 Completed Universit y of Vaccine 00:00:00 [facility] Influenza Virus 2021-01-16 Completed Universit y of Vaccine 00:00:00 [facility] SARS-COV-2 COVID-19 2020-10-16 Completed Unive rsity of PEDRO/J&J VACCINE 00:00:00 [facility] SARS-COV-2 COVID-19 2020-10-16 Completed Unive rsity of PEDRO/J&J VACCINE 00:00:00 [facility] SARS-COV-2 COVID-19 2020-10-16 Completed Unive rsity of PEDRO/J&J VACCINE 00:00:00 [facility] SARS-COV-2 COVID-19 2020-10-16 Completed Unive rsity of PEDRO/J&J VACCINE 00:00:00 [facility] SARS-COV-2 COVID-19 2020-10-16 Completed Unive rsity of PEDRO/J&J VACCINE 00:00:00 [facility] SARS-COV-2 COVID-19 2020-10-16 Completed Unive ity of PEDRO/J&J VACCINE 00:00:00 [facility] Influenza Virus 2020-01-21 Completed Universit y of Vaccine 00:00:00 [facility] Influenza Virus 2020-01-21 Completed Universit y of Vaccine 00:00:00 [facility] Influenza Virus 2020-01-21 Completed Universit y of Vaccine 00:00:00 [facility] Influenza Virus 2020-01-21 Completed Universit y of Vaccine 00:00:00 [facility] Influenza Virus 2020-01-21 Completed Universit y of Vaccine 00:00:00 [facility] Influenza Virus 2020-01-21 Completed Universit y of Vaccine 00:00:00 [facility] Zoster Vaccine 2019-07-17 Completed University of Recombinant 00:00:00 [facility] Zoster Vaccine 2019-07-17 Completed University of Recombinant 00:00:00 [facility] Zoster Vaccine 2019-07-17 Completed University of Recombinant 00:00:00 [facility] Zoster Vaccine 2019-07-17 Completed University of Recombinant 00:00:00 [facility] Zoster Vaccine 2019-07-17 Completed University of Recombinant 00:00:00 [facility] Zoster Vaccine 2019-07-17 Completed University of Recombinant 00:00:00 [facility] Td 2019-03-29 Completed University of 00:00:00 [facility] Td 2019-03-29 Completed University of 00:00:00 [facility] Td 2019-03-29 Completed University of 00:00:00 [facility] Td 2019-03-29 Completed University of 00:00:00 [facility] Td 2019-03-29 Completed University of 00:00:00 [facility] Td 2019-03-29 Completed University of 00:00:00 [facility] Influenza Virus 2018-02-18 Completed Universit y of Vaccine 00:00:00 [facility] Pneumococcal 2018-02-18 Completed University o f Polysaccharide, 00:00:00 [place] Med ical PPSV23 (PNEUMOVAX) [place] Influenza Virus 2018-02-18 Completed Universit y of Vaccine 00:00:00 [facility] Pneumococcal 2018-02-18 Completed University o f Polysaccharide, 00:00:00 [place] Med ical PPSV23 (PNEUMOVAX) [place] Influenza Virus 2018-02-18 Completed Universit y of Vaccine 00:00:00 [facility] Pneumococcal 2018-02-18 Completed University o f Polysaccharide, 00:00:00 [place] Med ical PPSV23 (PNEUMOVAX) Branch Influenza Virus 2018-02-18 Completed Universit y of Vaccine 00:00:00 [facility] Pneumococcal 2018-02-18 Completed University o f Polysaccharide, 00:00:00 [place] Med ical PPSV23 (PNEUMOVAX) Branch Influenza Virus 2018-02-18 Completed Universit y of Vaccine 00:00:00 [facility] Pneumococcal 2018-02-18 Completed University o f Polysaccharide, 00:00:00 [place] Med ical PPSV23 (PNEUMOVAX) Branch Influenza Virus 2018-02-18 Completed Universit y of Vaccine 00:00:00 [facility] Pneumococcal 2018-02-18 Completed University o f Polysaccharide, 00:00:00 [place] Med ical PPSV23 (PNEUMOVAX) Branch Influenza Virus 2008-03-19 Completed Universit y of Vaccine 00:00:00 [facility] Pneumococcal 2008-03-19 Completed University o f Polysaccharide, 00:00:00 [place] Med ical PPSV23 (PNEUMOVAX) Branch Influenza Virus 2008-03-19 Completed Universit y of Vaccine 00:00:00 [facility] Pneumococcal 2008-03-19 Completed University o f Polysaccharide, 00:00:00 [facility] ical PPSV23 (PNEUMOVAX) Branch Influenza Virus 2008-03-19 Completed Universit y of Vaccine 00:00:00 [facility] Pneumococcal 2008-03-19 Completed University o f Polysaccharide, 00:00:00 [facility] ical PPSV23 (PNEUMOVAX) Branch Influenza Virus 2008-03-19 Completed Universit y of Vaccine 00:00:00 [facility] Pneumococcal 2008-03-19 Completed University o f Polysaccharide, 00:00:00 [place] Med ical PPSV23 (PNEUMOVAX) Branch Influenza Virus 2008-03-19 Completed Universit y of Vaccine 00:00:00 [facility] Pneumococcal 2008-03-19 Completed University o f Polysaccharide, 00:00:00 [place] Med ical PPSV23 (PNEUMOVAX) Branch Influenza Virus 2008-03-19 Completed Universit y of Vaccine 00:00:00 [facility] Pneumococcal 2008-03-19 Completed University o f Polysaccharide, 00:00:00 [place] Med ical PPSV23 (PNEUMOVAX) [place] Vital Signs Vital Name Observation Time Observation Value Comments Source Systolic blood 2022-02-10 105 mm[Hg] University of pressure 16:35:00 [facility] Branch Diastolic blood 2022-02-10 57 mm[Hg] University o f pressure 16:35:00 [facility] Branch Heart rate 2022-02-10 65 /min University of 16:35:00 [facility] Branch Body temperature 2022-02-10 36.22 [place] University of 16:35:00 [facility] Branch Respiratory rate 2022-02-10 18 /min University of 16:35:00 [facility] Branch Oxygen saturation 2022-02-10 98 /min University of in Arterial blood 16:35:00 [place] Medi uriel by Pulse oximetry Branch Body weight 2022-02-10 74.98 kg University of 08:16:00 [facility] BMI 2022-02-10 25.89 kg/m2 University of 08:16:00 [facility] Body height 2022-02-10 170.2 cm Height before University of 01:18:00 Bilat BKA [facility] Systolic blood 2021-11-09 124 mm[Hg] University of pressure 23:00:00 [facility] Diastolic blood 2021-11-09 69 mm[Hg] University o f pressure 23:00:00 [facility] Branch Heart rate 2021-11-09 72 /min University of 23:00:00 [facility] Branch Respiratory rate 2021-11-09 25 /min University of 23:00:00 [facility] Oxygen saturation 2021-11-09 98 /min University of in Arterial blood 23:00:00 [facility] uriel by Pulse oximetry Branch Body temperature 2021-11-09 37.22 [place] University of 20:28:39 [place] Medical Branch Body height 2021-11-09 170.2 cm University of 20:16:00 [facility] Body weight 2021-11-09 71.215 kg University of 20:16:00 [facility] BMI 2021-11-09 24.59 kg/m2 University of 20:16:00 [facility] Branch Systolic blood 2021-11-05 134 mm[Hg] University of pressure 10:00:00 [facility] Branch Diastolic blood 2021-11-05 78 mm[Hg] University o f pressure 10:00:00 [facility] Branch Heart rate 2021-11-05 81 /min University of 10:00:00 [facility] Body temperature 2021-11-05 36.28 [place] University of 08:10:00 [facility] Respiratory rate 2021-11-05 18 /min [facility] 08:00:00 [facility] Oxygen saturation 2021-11-05 99 /min [facility] Arterial blood 08:00:00 [facility] by Pulse oximetry [place] Body height 2021-11-[address] [facility] 05:48:00 [facility] Body weight 2021-11-[address] [facility] 05:48:00 [facility] BMI 2021-11-05 24.59 kg/m2 [facility] 05:48:00 [facility] Procedures Procedure Date / Time Performing Clinician Source Performed INSURANCE CORRESPONDENCE 2022-04-19 06:01:00 Doctor Unassigned, [facility] [place] [facility] TRANSTHORACIC ECHO (TTE) 2022-02-10 13:16:00 Martha Rowe [facility] COMPLETE W/ CONTRAST Medical Bra nch PHOSPHORUS 2022-02-10 10:22:00 Martha Rowe [facility] MAGNESIUM 2022-02-10 10:22:00 Martha Rowe [facility] TROPONIN I 2022-02-10 10:22:00 Martha Rowe [facility] COMP. METABOLIC PANEL 2022-02-10 10:22:00 Martha Rowe [facility] ([id number]) [facility] CBC WITH DIFF 2022-02-10 10:22:00 Martha Rowe [facility] CREATINE KINASE 2022-02-10 04:37:00 Martha Rowe [facility] URIC ACID 2022-02-10 04:37:00 Martha Rowe [facility] FERRITIN SERUM 2022-02-10 04:37:00 Martha Rowe [facility] FOLATE 2022-02-10 04:37:00 Martha Rowe [facility] TROPONIN I 2022-02-10 04:37:00 Martha Rowe [facility] THYROID STIMULATING 2022-02-10 04:37:00 Martha Rowe [facility] HORMONE Medical Branch LIPID PANEL ([id number])(TOTAL 2022-02-10 04:37:00 Martha Rowe [facility] CHOLESTEROL, Medical Branch TRIGLYCERIDES, HDL) IRON PANEL 2022-02-10 04:37:00 Martha Rowe [facility] GLYCOSYLATED HEMOGLOBIN 2022-02-10 04:37:00 Martha Rowe [facility] (A1C) [facility] N-TERMINAL PRO-BNP 2022-02-10 04:37:00 Martha Rowe [facility] VITAMIN D, 25-OH 2022-02-10 04:37:00 Jae daisy [facility] COVID-19 (ID NOW RAPID 2022-02-10 04:37:00 Martha Rowe [facility] TESTING) [facility] B-TYPE NATRIURETIC FACTOR 2022-01-30 18:10:00 [facility] ([facility] XR CHEST 1 VW 2021-11-09 21:07:00 Troy Ku Mckenzie [facility] POCT GLUCOSE (AUTOMATED) 2021-11-09 20:25:00 Troy Ku [facility] MAGNESIUM 2021-11-09 20:19:00 Troy Ku [facility] TROPONIN I 2021-11-09 20:19:00 Troy Ku [facility] COMP. METABOLIC PANEL 2021-11-09 20:19:00 Troy Ku [facility] ([id number]) [facility] CBC WITH DIFF 2021-11-09 20:19:00 Troy Ku [facility] N-TERMINAL PRO-BNP 2021-11-09 20:19:00 Troy Ku [facility] XR CHEST 1 VW 2021-11-05 06:38:35 Mihaela Martin [facility] [id number] 2020-08-11 00:00:00 ALDMO [facility] [id number] 2020-08-11 00:00:00 ALDMO [facility] [id number] 2020-08-11 00:00:00 ALDMO [facility] [id number] 2020-08-11 00:00:00 ALDMO [facility] Computed tomography 2017-10-24 00:00:[address] [facility] Patient angiography of brain Medical Agustin ter CT angiography of chest 2017-10-23 00:00:00 KHAI WAHL V [facility] Computed tomography of 2017-10-23 00:00:00 KHAI WAHL V [facility] Patient brain without radiopaque Medical Center contrast Computed tomography of 2017-04-04 00:00:00 JACQUELYN MONTES [facility]CA [facility] Patient brain without radiopaque [facility] Center contrast Computed tomography of 2017-04-04 00:00:00 SWEET LAIRD [facility] Patient cervical spine without Medical C enter contrast US abdomen complete 2017-03-08 00:00:[address] [facility] Patient Medical Center Encounters Start End Encounter Admission Attending Care Care Encounter Source Date/Time Date/Time Type Type Clinicians Facility Department ID 2021-06-17 Outpatient 3 [id number] ENCKY MALDONADO [id number] [facility] 10:24:03 [id number] [facility] 2021-06-17 Outpatient 3 [id number] ENCKY REF [id number] [facility] 10:22:04 [id number] [facility] 2021-03-22 Emergency [facility] [id number] Univers 15:25:20 ity of [facility] 2021-03-22 Emergency [facility] [id number] Univers 10:56:41 ity of [facility] 2021-03-21 Emergency [facility] [id number] Univers 18:15:08 ity of [facility] 2021-03-21 Emergency [facility] [id number] Univers 17:18:22 ity of [facility] 2021-03-21 Emergency [facility] [id number] Univers 12:58:19 ity of [facility] 2021-03-21 Emergency [facility] [id number] Univers 04:06:22 ity of [facility] 2021-03-21 Emergency [facility] [id number] Univers 00:12:27 ity of [facility] 2021-03-20 Emergency [facility] [id number] Univers 00:55:44 ity of [facility] 2021-03-19 Emergency [facility] [id number] Univers 17:28:47 ity of [facility] 2021-03-19 Emergency [facility] [id number] Univers 03:16:03 ity of [facility] 2021-03-18 Emergency [facility] [id number] Univers 13:56:50 ity of [facility] 2020-08-23 Inpatient HCACL FERNANDO [id number] [facility] 17:41:00 84 [facility] 2020-04-04 Inpatient Marko, HCAMN HCAMN [id number] [facility] 14:40:00 Edward 33 [facility] 2019-10-15 Inpatient RADHA Shah, HCAPM ENDO [id number] [facility] 15:30:00 Finn [id number] [facility] 2022-04-19 2022-04-19 Orders Doctor JOSE [id number] Univers 00:00:00 00:00:00 Only Unassigned, [place] [id number] [facility] [id number] Juan J as [id number] [facility] 009 Branch 2022-02-11 2022-02-11 Transition LATRICE Harding [id number] Univers 00:00:00 00:00:00 of Care Josselyntoni DUQUE [id number] it y of [id number] [id number] [facility] 403 Branch 2022-02-09 2022-02-10 Outpatient U JAE DCSCOTT DARIUS [id number] Univers 19:53:00 13:45:00 MARTHA ity of [facility] 2022-02-09 2022-02-10 Hospital Ana Maria Meza [facility] [id number] Univers 19:53:00 13:45:00 Encounter Martha Rowe [id number] ity [id number] [id number] [facility] 081 Branch 2022-01-30 2022-01-30 Lab [facility] [id number] 00:00:00 00:00:00 Requisitio Esme [facility] 2022-01-30 2022-01-30 Lab [facility] [id number] 00:00:00 00:00:00 Requisitio Esem [facility] 2021-11-09 2021-11-09 Emergency X Troy KU [facility] ERT [id number] Univers 15:15:00 18:32:00 ity of [facility] 2021-11-09 2021-11-09 Emergency Troy Ku [facility] [id number] Univers 15:15:00 18:32:00 Mckenzie PEREZ [id number] i ty of [place] [id number] [facility] [id number] [place] [id number] [place] 2021-11-05 2021-11-05 Emergency X VERONICA [facility] ERT [id number] Univers 00:44:00 06:53:00 MIHAELA baugh [facility] 2021-11-05 2021-11-[address] [facility] [id number] Univers 00:44:00 06:53:00 Mihaela PEREZ [id number] [facility] [id number] [facility] [id number] [facility] 084 Branch 2021-11-04 2021-11-04 Transition Feliciano CLAUDETTETanya [id number] Univers 00:00:00 00:00:00 of Jennifer DUQUE [id number] it y of [place] [id number] [facility] [place] [id number] [facility] 403 Branch 2021-11-02 2021-11-03 Outpatient X BRAYDON [facility] [id number] Univers 22:35:00 15:46:00 OC baugh [facility] 2021-11-02 2021-11-03 Emergency Curtis Xavier [facility] [id number]. [id number] Univers 22:35:00 15:46:00 Oc Bryson 350.1.13.10 ity of [place] 4.2.7.2.686 [facility] [phone] [facility] 081 Branch 2021-11-02 2021-11-03 Outpatient X BRAYDON [facility] DARIUS [id number] Univers 22:35:00 15:46:00 OC itvashti [facility] 2021-11-01 2021-11-01 Transition LATRICE Feliciano 1.2.840.114 [id number] Univers 00:00:00 00:00:00 of Jennifer DUQUE 350.1.13.10 it y umu FABIANA 4.2.7.2.686 [facility] [place] [phone] [facility] 403 Branch 2021-10-27 2021-10-29 Outpatient X DERRICK [facility] [id number] Univers 17:41:00 14:03:00 ANA MARIA vashti [facility] 2021-10-27 2021-10-29 Emergency Jameson Mejia [facility] 1.2.840. 114 [id number] Univers 17:41:00 14:03:00 Lizett Gerardo 350.1.13.10 ity of [place] Maria Meza 4.2.7.2.686 [facility] [id number] [address] 2021-10-27 2021-10-29 Outpatient X DERRICK [facility] DARIUS [id number] Univers 17:41:00 14:03:00 ANA MARIA baugh [facility] 2021-10-21 2021-10-[address] [facility] ERT [id number] Univers 20:24:00 04:18:00 JYOTI [facility] 2021-10-21 2021-10-[address] [facility] 1.2.477.675 [id number] Univers 20:24:00 04:18:00 Jyoti PEREZ 350.1.13.10 i ty of [place] 4.2.7.2.686 [facility] [phone] [place] 617[address] Branch 2021-10-20 2021-10-20 Transition LATRICE Aleman 1.2.840.114 [id number] Univers 00:00:00 00:00:00 of Jennifer DUQUE 350.1.13.10 it[place] of [place] [phone] [facility] 403 [address] 2021-10-15 2021-10-18 Outpatient X DERRICK [facility] DARIUS [id number] Univers 16:42:00 13:52:00 ANA MARIA baugh [facility] 2021-10-15 2021-10-18 Emergency Jameson Mejia [facility] 1.2.840. 114 [id number] Univers 16:42:00 13:52:00 Ana Maria Meza 350.1.13.10 it[place] of [place] [phone] [facility] 081 [address] 2021-07-23 2021-07-23 Transition LATRICE Farooq 1.2.840.114 [id number] Univers 00:00:00 00:00:00 of Care Marcellaprakash DUQUE 350.1.13.10 i ty of [place] [id number] [facility] [address] [place] 2021-07-19 2021-07-[address] [facility] DARIUS [id number] Univers 09:10:00 17:00:00 GEOFFREY baugh [facility] 2021-07-19 2021-07-22 [facility] Brandyn Dumont [facility] 1.2.840.1 14 [id number] Univers 09:10:00 17:00:00 Encounter Geoffrey Hill [facility] 350.1.13.10 ity of [place] [phone] [facility] 109 [address] ([facility]) 2021-07-21 2021-07-21 Outpatient Wong_H VFP VF [id number] Village 06:58:00 06:58:00 [id number] Family Practic e 2021-07-13 2021-07-13 Transition LATRICE Aleman 1.2.840.114 [id number] Univers 00:00:00 00:00:00 of Care Rico Andrew DUQUE 350.1.13.10 [place] [phone] [address] 2021-06-28 2021-07-12 Inpatient X ANGEL [facility] DARIUS [id number] Univers 10:43:00 18:25:00 AMBIKA [facility] 2021-06-28 2021-07-12 [facility] Jameson Mejia [facility] 1.2.840.1 14 [id number] Univers 10:43:00 18:25:00 Encounter Troy Ku 350.1.13.10 ity of Ambika Fernandez [place] 4.2.7.2.686 [facility] [id number] [facility] 081 [address] 2021-02-15 2021-02-15 [facility] [id number] Univers 15:00:00 15:00:00 ALECIA [facility] 2021-01-11 2021-01-11 [facility] [id number] Univers 10:45:00 10:45:00 GINA baugh o anuj [facility] 2021-01-05 2021-01-05 Transition Latrice Aleman 1.2.840.114 [id number] Univers 00:00:00 00:00:00 of Care Rico Duque 350.1.13.10 ity of [place].2.7.2.686 [place] [id number] [facility] 403 [address] 2021-01-01 2021-01-04 [facility] Wayne Can [facility] 1.2.840.1 14 [id number] Univers 14:18:00 18:10:00 Encounter Lizett Gerardo 350.1.13.10 ity of [place].686 [place] [id number] [facility] 081 [address] 2021-01-01 2021-01-01 Orders Doctor GARCIA 1.2.840.114 [id number] Univers 00:00:00 00:00:00 Only Unassigned, [place] 350.1.13.10 ity of [place] [facility] 4.2.7.2.686 Juan J as [phone] [facility] 009 Branch 2020-12-17 2020-12-17 Transition Latrice Harding 1.2.840.114 [id number] Univers 00:00:00 00:00:00 of Care Josselyn Duque 350.1.13.10 it y of [place] [phone] [facility] 403 [address] 2020-12-14 2020-12-16 Emergency Jyoti Cedeno S [facility] 1.2.840.1 14 [id number] Univers 17:50:00 17:46:00 Ana Maria Meza 350.1.13.10 ity of [place].2.[place] [phone] [facility] 081 [address] 2020-11-16 2020-11-16 Orders Doctor JOSE 1.2.840.114 [id number] Univers 00:00:00 00:00:00 Only Unassigned, [place] 350.1.13.10 ity of [place] [facility] 4.2.7.2.686 Juan J [id number] [facility] 009 Branch 2020-10-30 2020-11-05 Inpatient EM Debi, [facility] [id number] [facility] 16:50:00 13:52:00 Fede 02050 [facility] 2020-10-31 2020-10-31 Outpatient ANNEL Carrera LABO [id number] [facility] 08:22:00 08:22:00 Fede 73 [facility] 2020-10-28 2020-10-28 Hospital Radiology [facility] 1.2.840.114 [id number] Univers 08:30:17 23:59:00 Encounter Sera 350.1.13.10 ity of [place].2.[place] [id number] [facility] 807 Branch 2020-10-28 2020-10-28 Hospital Radiology [facility] 1.2.840.114 [id number] 08:30:17 23:59:00 Encounter [place] 350.1.13.10 [place] 4.2.7.2.686 [place] [id number] 807 2020-10-28 2020-10-28 Outpatient R RADIOLOGY [facility] [id number] Univers 00:00:00 00:00:00 ity of [facility] 2020-10-12 2020-10-[address] [facility] 1.2.840.114 [id number] Univers 14:02:10 14:50:48 Visit Bryan Sera 350.1.13.10 i ty of [place] Profess[place] [phone] Sd dical [facility] 204 [facility] 2020-10-12 2020-10-12 Outpatient [facility] [id number] Univers 14:00:00 14:50:48 BRYAN ity [facility] 2020-10-12 2020-10-12 Outpatient R [facility] [id number] Univers 14:00:00 14:00:00 [facility] 2020-10-06 2020-10-06 Office Ivana [facility] 1.2.840.114 [id number] Univers 10:43:51 11:59:29 Visit Gina Perez 350.1.13.10 ity [facility] [place]2.[place].2.[place] [phone] Sd dical [address] 2020-10-06 2020-10-06 [facility] 1.2.840.114 [id number] 10:43:51 11:59:29 Visit Gina Perez 350.1.13.10 [place] 4.2.7.2.686 Professio [phone] [address] 2020-10-06 2020-10-06 [facility] [id number] Univers 10:30:00 10:30:00 GINA baugh o f [facility] 2020-10-06 2020-10-06 Orders Doctor GARCIA 1.2.840.114 [id number] Univers 00:00:00 00:00:00 Only Unassigned, [place] 350.1.13.10 ity of [place] [facility] 4.2.7.2.686 Juan J as [phone] [address] 2020-09-28 2020-09-28 Emergency [facility] 1.2.840.114 [id number] Univers 17:28:00 21:08:00 Elmerji Anuj Perez 350.1.13.10 ity of [place] 4.2.7.2.686 [facility] [id number] [facility] 084 Branch 2020-09-28 2020-09-28 Transition Latrice Frnech 1.2.840.114 [id number] Univers 00:00:00 00:00:00 of Care Gilda Duque 350.1.13.10 it y of [place].7.2.[place] [phone] [facility] 403 [address] 2020-09-23 2020-09-26 [facility] Wayne Can [facility] 1.2.840.1 14 [id number] Univers 13:50:00 18:28:00 Encounter Ambika Fernandez 350.1.13.10 ity of [place] 4.2.7.2.686 [facility] [phone] [place] 617331 [place] 2020-09-23 2020-09-26 Inpatient [facility] [id number] Univers 13:50:00 18:28:00 AMBIKA baugh [facility] 2020-09-22 2020-09-22 [facility] [id number] Univers 09:45:00 09:45:00 GINA palacio [facility] 2020-09-10 2020-09-10 [facility] [id number] Univers 16:15:00 16:15:00 BRYAN baugh [facility] 2020-09-09 2020-09-09 Transition Latrice Aleman 1.2.840.114 [id number] Univers 00:00:00 00:00:00 of Care Rico Duque 350.1.13.10 ity of [place] [phone] [address] 2020-09-08 2020-09-08 Outpatient [facility] [id number] Univers 08:30:00 08:30:00 GINA palacio [facility] 2020-09-02 2020-09-07 Hospital Jose Guy [facility] 1.2.840.114 [id number] Univers 16:46:00 18:45:00 Encounter Alis Garcia [facility] 350. 1.13.10 ity of [place] Geoffrey Jonn 4.2.7.2.686 [place] Kaylyn Calvin Mejia [phone] [address] ([facility]) 2020-08-26 2020-08-26 Office Tha Gunter [facility] 1.2.840.114 [id number] Univers 10:44:06 11:14:06 Visit [facility] 350.1.13.10 it y of [place].2.[place] [phone] [address] Office Building 2020-08-26 2020-08-26 Outpatient THA POLK [facility] [id number] Univers 10:30:00 10:30:00 ity [facility] 2020-08-25 2020-08-25 Outpatient Tim HEATH [facility] [id number] Univers 10:00:00 10:00:00 GINA palacio [facility] 2020-08-24 2020-08-24 Outpatient Tim JAIME [facility] [id number] Univers 09:00:00 09:00:00 DEIDRE [facility] 2020-08-21 2020-08-21 Office [facility] 1.2.840.114 [id number] Univers 08:43:52 09:13:46 Visit Gina Perez 350.1.13.10 ity of [place] 4.2.7.2.686 [place] [phone] [place] [address] Branch Building 2020-08-21 2020-08-21 Outpatient Tim HEAHT [facility] [id number] Univers 08:30:00 08:30:00 GINA palacio [facility] 2020-08-10 2020-08-14 Inpatient KACIE Montanez, ANNELCL INTE.02 [id number] [facility] 09:09:00 18:56:00 Johnie Lunsford [facility] 2020-08-11 2020-08-11 [facility] [id number] Univers 09:15:00 09:15:00 GINA palacio [facility] 2020-08-07 2020-08-07 Outpatient [facility] [id number] Univers 10:00:00 10:00:00 GINA palacio [facility] 2020-07-27 2020-08-06 [facility] Jameson Mejia 1.2.840.1 14 [id number] Univers 12:13:00 17:15:00 Encounter Minnie Cardona 350.1.13.10 ity of [facility] 4.2.7.2.686 [place] Drew Noriega [phone] [facility] Johnie Skinner [address] [place] [address] 2020-07-27 2020-08-06 Inpatient JOHNIE SKINNER [facility] [id number] Univers 12:13:00 17:15:00 ity of [facility] 2020-07-24 2020-07-24 [facility] [id number] Univers 13:00:00 13:00:00 GINA workman [facility] 2020-07-21 2020-07-21 Transition Latrice Aleman 1.2.840.114 [id number] Univers 00:00:00 00:00:00 of Care Rico Duque 350.1.13.10 ity of [place] 4.2.7.2.686 Noe beckett [id number] [address] 2020-07-10 2020-07-20 [facility] Janeth Leal 1.2.84 0.114 [id number] Univers 19:24:00 21:51:00 Encounter Oc Bryson 350.1.13.10 ity of Janeth Leal [facility] 4.2.7.2.686 [place] Minnie Cardona [phone] Medical Lisa Marroquin [address] 2020-07-17 2020-07-17 [facility] [id number] Univers 10:00:00 10:00:00 JOSE baugh [facility] 2020-07-10 2020-07-10 Outpatient R IVANA [facility] [id number] Univers 08:45:00 08:45:00 GINA workman f [facility] 2020-06-15 2020-06-[address] [facility] 1.2.942.517 [id number] Univers 00:00:00 00:00:00 Jose Perez 350.1.13.10 i ty of [place].2.[place] [phone] Sd dical nal [address] Building 2020-06-11 2020-06-[address] [facility] 1.2.840.114 [id number] Univers 13:43:55 13:58:55 Visit Jose Eric 350.1.13.10 it y of [place].2.7.2.686 [place] - [phone] Med ical [facility] 188 Branch 2020-06-11 2020-06-11 Outpatient R JANKI [facility] [id number] Univers 13:30:00 13:30:00 JOSE baugh [facility] 2020-06-03 2020-06-03 Transition Latrice Aleman 1.2.840.114 [id number] Univers 00:00:00 00:00:00 of Care Rico Duque 350.1.13.10 ity of [place].2.[place] [id number] [facility] 403 [address] 2020-05-29 2020-06-02 [facility] Jameson Mejia [facility] 1.2.840.1 14 [id number] Univers 09:12:00 16:02:00 Encounter Lizett Gerardo 350.1.13.10 ity of [place] 4.2.7.2.686 [facility] [id number] [facility] 081 [address] 2020-05-29 2020-06-02 Inpatient X JAE [facility] [id number] Univers 09:12:00 16:02:00 MARTHA baugh [facility] 2020-05-29 2020-05-29 Outpatient R JANKI [facility] [id number] Univers 10:15:00 10:15:00 JOSE baugh [facility] 2020-04-23 2020-04-[address] [facility] 1.2.840.114 [id number] Univers 13:48:18 14:03:18 Visit Jose [facility] 350.1.13.10 it y of [place].2.[place] - [phone] [address] 2020-04-23 2020-04-23 Outpatient [facility] [id number] Univers 13:30:00 13:30:00 JOSE baugh [facility] 2020-04-23 2020-04-23 Orders Doctor JOSE 1.2.840.114 [id number] Univers 00:00:00 00:00:00 Only Unassigned, [place] 350.1.13.10 ity of [place] [facility] 4.2.7.2.686 Juan J as [phone] [facility] [address] [place] 2020-04-09 2020-04-[address] [facility] 1.2.840.114 [id number] Univers 13:58:45 14:13:45 Visit Jose [facility] 350.1.13.10 it y of [place] 4.2.7.2.686 [facility] - [phone] [address] 2020-04-09 2020-04-09 Out[facility] [id number] Univers 14:00:00 14:00:00 JOSE baugh [facility] 2020-03-27 2020-03-27 Transition Latrice Aleman 1.2.840.114 [id number] Univers 00:00:00 00:00:00 of Care Rico Duque 350.1.13.10 ity of [place].2.[place] [phone] [facility] 403 [address] 2020-03-15 2020-03-26 Hospital Jameson Mejia 1.2.840.1 14 [id number] Univers 23:48:00 18:02:00 Encounter Kandis Hough 350.1.13.10 ity of Janki [facility] 4.2.7.2.68 6 [place] [phone] [facility] 098 Branch 2020-03-18 2020-03-18 Anesthesia Caio Najera Nancy 1. 2.840.114 [id number] Univers 13:52:00 16:42:00 Stephanie Franks 350.1.13.10 ity of [facility] 4.2.7.2.686 Juan J as [phone] [facility] 103 [address] 2020-02-06 2020-02-06 Transition Claudette Alemantanya 1.2.840.114 [id number] Univers 00:00:00 00:00:00 of Care Rico Zelayay 350.1.13.10 ity of [place].7.2.[place] [id number] [facility] 403 [address] 2020-02-03 2020-02-05 Hospital Óscar Hermosillo [facility] 1.2.8 40.114 [id number] Univers 16:55:00 20:40:00 Encounter Martha Rowe 350.1.13.10 ity of [place] 4.[place].7.2.686 [place] [id number] [facility] 081 [address] 2020-01-17 2020-01-17 Out[facility] [id number] Univers 13:30:00 13:30:00 SENDIL ity of [facility] 2019-12-02 2019-12-02 Outpatient R [facility] [id number] Univers 15:00:00 15:00:00 ity of [facility] 2019-11-16 2019-11-21 [facility] Dhirajfrances [place] [facility] 1.2.840 .114 [id number] Univers 16:35:23 14:12:00 Encounter Heather Hermosillo 350.1.13.1 0 ity of [place].7.2.686 [place] [phone] [place] [address] Branch 2019-09-17 2019-09-18 [facility] 1.2.048.163 [id number] Univers 20:30:04 00:41:00 Valery Perez 350.1.13.10 ity of [place] 4.[place].2.[place] [id number] [facility] [address] [place] 2019-09-17 2019-09-18 Emergency X ALFIE [facility] ERT [id number] Univers 20:30:04 00:41:00 WAKILI ity [facility] 2019-09-05 2019-09-05 Outpatient [facility] [id number] Univers 14:00:00 14:00:00 SENDIL ity [facility] 2019-09-05 2019-09-[address] [facility] 1.2.840.114 [id number] Univers 08:17:17 08:47:17 ne Visit Sendil Hannah Perez 350.1.13.10 ity of [place].7.2.[place] [phone] Sd dicpr nal [address] [place] [address] 2019-09-05 2019-09-[address] [facility] 1.2.289.628 [id number] Univers 00:00:00 00:00:00 Sendil Hannah Perez 350.1.13.10 ity of [place] 4.[place].7.2.[place] [phone] Sd dical nal 9 [facility] 2019-09-03 2019-09-03 Outpatient [facility] [id number] Univers 10:30:00 10:30:00 SENDIL ity [facility] 2019-08-20 2019-08-[address] [facility] 1.2.149.845 [id number] Univers 00:00:00 00:00:00 Nika SHAW 350.1.13.10 ity of [place]2.7.2.[place] [phone] Sd dical [address] [place] 2019-08-19 2019-08-19 Refill Nancy Lee 1.2.840.114 [id number] Univers 00:00:00 00:00:00 Lola Figueroa 350.1.13.10 it y of Hospital 4.2.7.2.686 [place] J as [phone] [facility] [address] [place] 2019-08-16 2019-08-16 Refill Nancy Lee 1.2.840.114 [id number] Univers 00:00:00 00:00:00 Lola [place] 350.1.13.10 it y of Hospital 4.2.7.2.686 Juan J as [phone] [facility] 090 [address] 2019-08-15 2019-08-[address] [facility] 1.2.840.114 [id number] Univers 11:58:21 15:28:00 Demarcus Perez 350.1.13.10 i ty of [place] 4.2.7.2.[place] [id number] [facility] 084 [address] 2019-08-15 2019-08-15 Emergency [address] [facility] ERT [id number] Univers 11:58:21 15:28:00 DEMARCUS ity [facility] 2019-08-15 2019-08-15 Case JOSE Castillo 1.2.840.114 [id number] Univers 00:00:00 00:00:00 Management Ninfa FIGUEROA 350.1.13.10 ity [facility] 4.2.7.2.686 Juan J as [id number] [facility] 008 Branch 2019-08-15 2019-08-15 Telephone Anna [facility] 1.2.890.886 [id number] Univers 00:00:00 00:00:00 Ninfa Perez 350.1.13.10 ity of [place].2.[place] [facility] [phone] [facility] 059 [facility] 2019-08-12 2019-08-12 Transition Latrice Ramirez 1.2.840.114 [id number] Univers 00:00:00 00:00:00 of Care Joan Duque 350.1.13.10 ity of [place] 4.2.7.2.[place] [id number] [facility] 403 [address] 2019-08-06 2019-08-09 Emergency Wayne Can [facility] 1.2.840. 114 [id number] Univers 14:06:47 15:19:00 Lizett Gerardo 350.1.13.10 ity of [place] 4.2.7.2.686 [place] [phone] [facility] 081 [address] 2019-08-06 2019-08-09 Outpatient X HUMAIRA [facility] [id number] Univers 14:06:47 15:19:00 LIZETT ity of [facility] 2019-08-06 2019-08-06 Outpatient R TRAVIS, [facility] [id number] Univers 13:30:00 13:30:00 RICHMOND ity o f [facility] 2019-08-06 2019-08-06 Outpatient R TRAVIS, [facility] [id number] Univers 11:00:00 11:00:00 RICHMOND singhy o f [facility] 2019-08-06 2019-08-06 Outpatient R TRAVIS, [facility] [id number] Univers 11:00:00 11:00:00 [facility] amauri o f [facility] 2019-08-06 2019-08-06 Orders Doctor JOSE 1.2.840.114 [id number] Univers 00:00:00 00:00:00 Only Unassigned, [place] 350.1.13.10 ity of [place] [facility] 4.2.7.2.686 Juan J as [phone] [facility] 009 [address] 2019-07-19 2019-07-19 Transition Latrice French 1.2.840.114 [id number] Univers 00:00:00 00:00:00 of Care Gilda Duque 350.1.13.10 it y of [place].2.[place] [phone] [facility] 403 [address] 2019-07-17 2019-07-18 Emergency Antonetteodalysarnie Danakelli S Nancy 1.2.840 .114 [id number] Univers 21:36:10 21:05:00 Abu-Josy Tareq Lucas 350.1.13.1 0 ity of Hospital 4.2.7.2.686 [place] J as [phone] [facility] 090 [address] 2019-07-17 2019-07-18 Outpatient X ABU-JOSY, TAREQ [facility] [id number] Univers 21:36:10 21:05:00 ABU-JOSY, TAREQ ity of [facility] 2019-07-03 2019-07-03 Transition Latrice French 1.2.840.114 [id number] Univers 00:00:00 00:00:00 of Care Gilda Duque 350.1.13.10 it [phone] [address] 2019-07-01 2019-07-01 Transition Latrice French 1.2.840.114 [id number] Univers 00:00:00 00:00:00 of Care Gilda Duque 350.1.13.10 it [place] [phone] [facility] [address] 2019-06-27 2019-06-27 Transition Latrice French 1.2.840.114 [id number] Univers 00:00:00 00:00:00 of Care Gilda Duque 350.1.13.10 it [place] [phone] [facility] [address] 2019-06-24 2019-06-26 Inpatient X [facility] [id number] Univers 14:51:01 18:37:00 MICHAEL ity of [facility] 2019-06-24 2019-06-26 Hospital Janeth Leal 1.2.84 0.114 [id number] Univers 14:51:01 18:37:00 Encounter Michael Shirley 350.1.1 3.10 ity of [facility] 4.2.7.2.686 [place] J as [phone] [facility] [address] 2019-02-06 2019-02-06 Telephone JOSE Bhatt 1.2.840.114 [id number] Univers 00:00:00 00:00:00 Cortney FIGUEROA 350.1.13.10 i ty of [facility] 4.2.7.2.686 [place] J as [phone] [facility] [address] 2019-02-05 2019-02-05 Emergency [facility] 1.2.060.377 [id number] Univers 17:30:29 21:52:00 Jyoti Perez 350.1.13.10 i ty [place] [phone] [place] [id number] [place] 2019-01-30 2019-01-30 Transition EmyLatrice martínez 1.2.840.114 [id number] Univers 00:00:00 00:00:00 of Care Rhonda Duque 350.1.13.10 it y [place] [phone] [facility] [address] 2019-01-24 2019-01-29 [facility] Wayne Can 1.2.840.1 14 [id number] Univers 16:01:37 14:55:00 Encounter Dennis Finley 350.1.13.10 ity [facility] 4.2.7.2.686 Juan J as [phone] [place] [id number] Branch 2019-01-22 2019-01-22 Transition Latrice Quevedo 1.2.840.114 [id number] Univers 00:00:00 00:00:00 of Care Rhonda Duque 350.1.13.10 it y of [place] [phone] [facility] 403 Branch 2019-01-16 2019-01-19 [facility] Carlos Allen 1.2.840.11 4 [id number] Univers 23:52:03 14:36:00 Encounter Martha Rowe 350.1.13.10 ity of [place], Dennis ramsayal 4.2.7.2.686 [place] [phone] [place] [address] Branch 2017-10-23 2017-10-27 Discharged 1 [facility] [id number] 17:29:00 16:54:00 Inpatient ALEXIS 90 Luke s [facility] 2017-04-03 2017-04-04 [id number] 23:17:00 03:53:00 Emergency LAIRD 56 Luke s Room [facility] 2017-03-05 2017-03-09 Discharged ER [facility] [id number] 06:54:00 10:58:00 Inpatient NICHELLE 44 Luke s (obs) Patient [facility] 2017-01-04 2017-01-05 Discharged [facility] [id number] 10:33:00 18:56:00 Inpatient 61 Favio s (obs) [facility] Orders Doctor JOSE 1.2.840.114 [id number] Univers 00:00:00 00:00:00 Only Unassigned, [place] 350.1.13.10 ity of [place] [facility] 4.2.7.2.686 Juan J as [phone] Medi uriel 009 Branch Results Test Description Test Time Test Comments Results Result Comments Source Transthoracic echo (TTE) 2022-02-10 17:43:07 Test Item Value Reference Range Interpretation Comme nts Height (test code = 5683421559) in Weight (test code = 9956990248) lbs Systolic BP (test code = 5176591708) mmHg Diastolic BP (test code = 9824062946) mmHg Heart Rate (test code = 9225257002) bpm BSA (test code = 0358280061) 1.86 m2 Ao root diam (test code = 8154050326) 3.10 cm Aortic root (test code = 4838585356) 3.1 cm Ao root annulus (test code = 3.1 cm 5090798353) LVOT diameter (test code = 1.83 cm 4415874333) LVOT area (test code = 4969133422) 2.60 cm2 LVIDD (test code = 1228406763) 4.80 cm Left Ventricular End Diastolic Volume 107.5 mL by Teichholz Method (test code = 8711134) IVS (test code = 6688748952) 1.35 cm Interventricular Septum Diastolic 1.35 cm Thickness by 2D (test code = 4925101) LVPWD (test code = 5281015338) 1.35 cm PW (test code = 6998775234) 1.35 cm 0.6-1.1 EF(Teich) (test code = 4576723089) 30.10 % LVIDS (test code = 8162178341) 4.10 cm Left Ventricular End Systolic Volume 75.1 mL by Teichholz Method (test code = 8295730) FS (test code = 9333430175) 14 % EF - 2D (test code = 65711044) 30.10 % LA size (test code = 6955258873) 4.1 cm TR Peak Haile (test code = 7269075880) 232.4 cm/s Triscuspid Valve Regurgitation Peak mmHg Gradient (test code = 0855352214) LAV(MOD-sp4) (test code = 8481257846) 103.10 mL E wave decelartion time (test code = 0.15 s 4141024798) MV stenosis pressure 1/2 time (test 44.6 ms code = 8268788393) MV Peak E Haile (test code = 110.2 cm/s 1179739907) MV Peak A Haile (test code = 28.7 cm/s 2550811296) E/A ratio (test code = 6937461515) ratio MR max PG (test code = 8611135798) 78.70 mm[Hg] MR max haile (test code = 8056033510) 443.40 cm/s Mr max haile (test code = 5906096057) 443.4 m/s MV Prop V (test code = 6634876133) 45.00 cm/s MV E/e' septal (test code = 9.2 cm/s 2313245334) Tapse (test code = 7581096921) 1.53 cm LVOT stroke volume (test code = 41.70 cm3 8177457760) LVOT peak haile (test code = 87.2 cm/s 5280741547) LVOT mn grad (test code = 8064271643) mmHg AV LVOT peak gradient (test code = mmHg 7956703543) LVOT peak VTI (test code = 15.8 cm 2270468461) LV V1 mean (test code = 5041741297) 51.30 cm/s Aortic valve mean velocity (test code 78.3 cm/s = 9257472214) Ao peak haile (test code = 2588165826) 111.8 cm/s Ao VTI (test code = 0944359225) 21.5 cm AV area by cont VTI (test code = 1.9 cm2 1460459928) AV area peak haile (test code = 2.1 cm2 5305957710) Ao max PG (test code = 9813097327) 5.00 mm[Hg] AV peak gradient (test code = mmHg 5327492054) AV valve area (test code = 1.94 cm2 8815309392) AV mean gradient (test code = mmHg 1966746093) Radiology Study observation (narrative) (test code = 06164-5) DIANE (test code = DIANE) Table formatting [...] lateral and apex.All other segments are normal. [facility] [id number] 12:01:08 Test Item Value Reference Interpretation Comments Range TROPONIN I (test 0.021 ng/mL See_Comment [Automated code = 9538842169) message] The system which generated this result [...] biotin. Lab Interpretation Normal (test code = 30899-7) [facility]2022-[facility]-22 11:50:23 Test Item Value Reference Range Interpretation Comments MAGNESIUM (test code = 6628380433) 1.7 mg/dL 1.7-2.4 Lab Interpretation (test code = Normal 54485-3) [facility] PAN[facility] (09648)2022-02-10 11:50:22 Test Item Value Reference Range Interpretation Comments NA (test code = 138 mmol/L 135-145 0080697523) K (test code = 3.9 mmol/L 3.5-5 2416326658) CL (test code = 108 mmol/L 98-108 1109649263) CO2 TOTAL (test code = 24 mmol/L 23-31 5914968515) AGAP (test code = 2-16 8960396680) BUN (test code = 19 mg/dL 7-23 6830261332) GLUCOSE (test code = 117 mg/dL 70-110 H 9573392611) CREATININE (test code = 0.91 mg/dL 0.6-1.25 6250102536) TOTAL BILI (test code = 1.0 mg/dL 0.1-1.3 6529793710) CALCIUM (test code = 8.5 mg/dL 8.6-10.6 L 5607517260) T PROTEIN (test code = 6.4 g/dL 6.3-8.2 0126079222) ALBUMIN (test code = 3.4 g/dL 3.5-5 L 7858300786) ALK PHOS (test code = 177 U/L 34-122 H 6893919044) ALTv (test code = 24 U/L 5-50 1742-6) AST(SGOT) (test code = 38 U/L 13-40 9477308364) eGFR (test code = mL/min/1.73m2 2354989065) DIANE (test code = DIANE) Association of [...] tests). Lab Interpretation Abnormal (test code = 67771-4) [facility]2022-[facility] 11:50:22 Test Item Value Reference Range Interpretation Comments PHOSPHORUS (test code = 4384560625) 5.1 mg/dL 2.5-5 H Lab Interpretation (test code = Abnormal 55111-6) [facility] WITH [id number] 11:19:02 Test Item Value Reference Range Interpretation [...] RDW-SD (test code = 48.0 fL 38.5-51.6 94729-5) RDW-CV (test code = 14.2 % 12.1-15.4 788-0) PLT (test code = See_Comment [Automated 777-3) message] The sy stem which generated this result transmitted reference range : 150 - 328 10*3/ ?L. The reference r batsheva was not used to interpret this result as normal/abnormal . MPV (test code = 10.2 fL 9.8-13 55922-7) NRBC/100 WBC (test See_Comment [Automat ed code = 3170064664) message] The system which generated this result transmitted reference range : 0.0 - 10.0 /100 WBCs. The refer ence range was not u sed to interpret th is result as normal/abnormal . NRBC x10^3 (test code See_Comment [Auto mated = 4133409271) message] The s ystem which generated this result transmitted reference range : 10*3/?L. The reference range was not used to interpret this result as normal/abnormal . GRAN MAT (NEUT) % 68.5 % (test code = 770-8) IMM GRAN % (test code 0.40 % = 9791778289) LYMPH % (test code = 19.0 % 736-9) MONO % (test code = 8.3 % 5905-5) EOS % (test code = 3.4 % 713-8) BASO % (test code = 0.4 % 706-2) GRAN MAT x10^3(ANC) 3.65 10*3/uL 1.99-6.95 (test code = 4489233111) IMM GRAN x10^3 (test 0-0.06 code = 5527844305) LYMPH x10^3 (test code 1.01 10*3/uL 1.09-3.23 L = 731-0) MONO x10^3 (test code 0.44 10*3/uL 0.36-1.02 = 742-7) EOS x10^3 (test code = 0.18 10*3/uL 0.06-0.53 711-2) BASO x10^3 (test code 0.01-0.09 = 704-7) Lab Interpretation Abnormal (test code = 38577-3) [facility] (BNP)2022-01-30 23:33:12 Test Item Value Reference Range Interpretation Comments BNP (test code = 96011-3) 443 pg/mL 0-100 H DIANE (test code = DIANE) [employer] ID - ADRY Lab Interpretation (test Abnormal code = 76472-5) [facility] 23:33:12 Test Item Value Reference Range Interpretation Comments BNP (test code = 32760-2) 443 pg/mL 0-100 H DIANE (test code = DIANE) [employer] ID - ADRY Lab Interpretation (test Abnormal code = 06163-7) [facility]2022-01-30 23:33:12 Test Item Value Reference Range Interpretation Comments BNP (test code = 19295-9) 443 pg/mL 0-100 H DIANE (test code = DIANE) [employer] ID - ADRY Lab Interpretation (test Abnormal code = 90460-6) [facility]2022-01-30 23:33:12 Test Item Value Reference Range Interpretation Comments BNP (test code = 39732-6) 443 pg/mL 0-100 H DIANE (test code = DIANE) [employer] ID - ADRY Lab Interpretation (test Abnormal code = 84567-4) [facility]2022-01-30 23:33:12 Test Item Value Reference Range Interpretation Comments BNP (test code = 26154-3) 443 pg/mL 0-100 H DIANE (test code = DIANE) [employer] ID - ADRY Lab Interpretation (test Abnormal code = 33454-3) [facility]2022-01-30 23:33:12 Test Item Value Reference Range Interpretation Comments BNP (test code = 33453-3) 443 pg/mL 0-100 H DIANE (test code = DIANE) [employer] ID - ADRY Lab Interpretation (test Abnormal code = 42334-5) [facility]2022-01-30 23:33:12 Test Item Value Reference Range Interpretation Comments BNP (test code = 24383-6) 443 pg/mL 0-100 H DIANE (test code = DIANE) [employer] ID - ADRY Lab Interpretation (test Abnormal code = 66461-4) [facility]2022-01-30 23:33:12 Test Item Value Reference Range Interpretation Comments BNP (test code = 42253-7) 443 pg/mL 0-100 H DIANE (test code = DIANE) [employer] ID - ADRY Lab Interpretation (test Abnormal code = 55423-2) [facility] (BNP)2022-01-30 23:33:12 Test Item Value Reference Range Interpretation Comments B-TYPE NATRIURETIC PEPTIDE (BEAKER) 443 pg/mL 0-100 H (test code = 700) [employer] ID - ADRYTROPONIN [id number] 20:57:59 Test Item Value Reference Interpretation Comments Range TROPONIN I (test 0.017 ng/mL See_Comment [Automated code = 3223553424) message] The system which generated this result [...] biotin. Lab Interpretation Normal (test code = 71914-1) [facility]MINAL [id number] 20:54:59 Test Item Value Reference Range Interpretation Comments NT-proBNP (test code 6490 pg/mL See_Comment H [Autom ated = 4152499510) message] The system which generated this result transmitted reference range : <=125. The reference range was not used to interpret this result as normal/abnormal . DIANE (test code = DIANE) Biotin has been reported to cause a negative bias, interpret results relative to patient's use of biotin. Lab Interpretation Abnormal (test code = 15487-6) [facility]2022-[facility]-21 20:46:35 Test Item Value Reference Range Interpretation Comments MAGNESIUM (test code = 9892536167) 1.5 mg/dL 1.7-2.4 L Lab Interpretation (test code = Abnormal 14793-9) [facility] PAN[facility] (61341)2021-11-09 20:46:34 Test Item Value Reference Range Interpretation Comments NA (test code = 140 mmol/L 135-145 3381922778) K (test code = 3.9 mmol/L 3.5-5.0 0511295301) CL (test code = 111 mmol/L 98-108 H 3550425405) CO2 TOTAL (test code = 16 mmol/L 23-31 L 8494169164) AGAP (test code = 2-16 5687738367) BUN (test code = 14 mg/dL 7-23 4744051340) GLUCOSE (test code = 189 mg/dL 70-110 H 0833473314) CREATININE (test code = 0.66 mg/dL 0.60-1.25 8342019370) TOTAL BILI (test code = 0.8 mg/dL 0.1-1.1 4170344590) CALCIUM (test code = 8.3 mg/dL 8.6-10.6 L 3380297137) T PROTEIN (test code = 6.5 g/dL 6.3-8.2 4521460454) ALBUMIN (test code = 3.3 g/dL 3.5-5.0 L 3512509502) ALK PHOS (test code = 136 U/L 34-122 H 0446752034) ALTv (test code = 18 U/L 5-50 1742-6) AST(SGOT) (test code = 26 U/L 13-40 8044898602) eGFR (test code = mL/min/1.73m2 3771762026) DIANE (test code = DIANE) Association of [...] tests). Lab Interpretation Abnormal (test code = 91773-4) [facility] WITH [id number] 20:33:30 Test Item Value Reference Range Interpretation [...] RDW-SD (test code = 45.4 fL 38.5-51.6 66292-6) RDW-CV (test code = 14.2 % 12.1-15.4 788-0) PLT (test code = See_Comment [Automated 777-3) message] The sy stem which generated this result transmitted reference range : 150 - 328 10*3/ ?L. The reference r batsheva was not used to interpret this result as normal/abnormal . MPV (test code = 9.8 fL 9.8-13.0 04789-1) NRBC/100 WBC (test See_Comment [Automat ed code = 2852814764) message] The system which generated this result transmitted reference range : 0.0 - 10.0 /100 WBCs. The refer ence range was not u sed to interpret th is result as normal/abnormal . NRBC x10^3 (test code <0.01 See_Comment [Auto mated = 7096832911) message] The s ystem which generated this result transmitted reference range : 10*3/?L. The reference range was not used to interpret this result as normal/abnormal . GRAN MAT (NEUT) % 62.3 % (test code = 770-8) IMM GRAN % (test code 0.80 % = 4300830661) LYMPH % (test code = 25.1 % 736-9) MONO % (test code = 6.7 % 5905-5) EOS % (test code = 4.7 % 713-8) BASO % (test code = 0.4 % 706-2) GRAN MAT x10^3(ANC) 4.76 10*3/uL 1.99-6.95 (test code = 3857759083) IMM GRAN x10^3 (test 0.06 10*3/uL 0.00-0.06 code = 8936772629) LYMPH x10^3 (test code 1.92 10*3/uL 1.09-3.23 = 731-0) MONO x10^3 (test code 0.51 10*3/uL 0.36-1.02 = 742-7) EOS x10^3 (test code = 0.36 10*3/uL 0.06-0.53 711-2) BASO x10^3 (test code 0.03 10*3/uL 0.01-0.09 = 704-7) Lab Interpretation Abnormal (test code = 19097-9) [facility] (AUT[facility]ATED)2021-11-09 20:27:39 Test Item Value Reference Range Interpretation Comments POCT GLU (test code = 5065216311) 190 mg/dL 70-110 H Lab Interpretation (test code = Abnormal 88446-7) [facility] [id number] 11:52:00 Test Item Value Reference Range Interpretation Comments GLUCOSE BEDSIDE TESTING (test code = 92 mg/dL 70-110 N GLUBED) GLUCOSE BEDSIDE [id number] 08:05:00 Test Item Value Reference Range Interpretation Comments GLUCOSE BEDSIDE TESTING (test code = 62 mg/dL 70-110 L GLUBED) GLUCOSE BEDSIDE [id number] 20:40:00 Test Item Value Reference Range Interpretation Comments GLUCOSE BEDSIDE TESTING (test code 105 mg/dL 70-110 N = GLUBED) GLUCOSE BEDSIDE [id number] 17:02:00 Test Item Value Reference Range Interpretation Comments GLUCOSE BEDSIDE TESTING (test code 128 mg/dL 70-110 H = GLUBED) GLUCOSE BEDSIDE [id number] 16:37:00 Test Item Value Reference Range Interpretation Comments GLUCOSE BEDSIDE TESTING (test code 105 mg/dL 70-110 N = GLUBED) GLUCOSE BEDSIDE [id number] 08:17:00 Test Item Value Reference Range Interpretation Comments GLUCOSE BEDSIDE TESTING (test code = 88 mg/dL 70-110 N GLUBED) GLUCOSE BEDSIDE [id number] 19:45:00 Test Item Value Reference Range Interpretation Comments GLUCOSE BEDSIDE TESTING (test code 115 mg/dL 70-110 H = GLUBED) GLUCOSE BEDSIDE [id number] 18:13:00 Test Item Value Reference Range Interpretation Comments GLUCOSE BEDSIDE TESTING (test code = 74 mg/dL 70-110 N GLUBED) GLUCOSE BEDSIDE [id number] 17:29:00 Test Item Value Reference Range Interpretation Comments GLUCOSE BEDSIDE TESTING (test code = 44 mg/dL 70-110 LL GLUBED) GLUCOSE BEDSIDE [id number] 12:26:00 Test Item Value Reference Range Interpretation Comments GLUCOSE BEDSIDE TESTING (test code = 96 mg/dL 70-110 N GLUBED) GLUCOSE BEDSIDE [id number] 08:21:00 Test Item Value Reference Range Interpretation Comments GLUCOSE BEDSIDE TESTING (test code = 77 mg/dL 70-110 N GLUBED) GLUCOSE BEDSIDE [id number] 20:12:00 Test Item Value Reference Range Interpretation Comments GLUCOSE BEDSIDE TESTING (test code = 91 mg/dL 70-110 N GLUBED) GLUCOSE BEDSIDE [id number] 16:42:00 Test Item Value Reference Range Interpretation Comments GLUCOSE BEDSIDE TESTING (test code 106 mg/dL 70-110 N = GLUBED) GLUCOSE BEDSIDE [id number] 11:49:00 Test Item Value Reference Range Interpretation Comments GLUCOSE BEDSIDE TESTING (test code = 89 mg/dL 70-110 N GLUBED) GLUCOSE BEDSIDE [id number] 08:22:00 Test Item Value Reference Range Interpretation Comments GLUCOSE BEDSIDE TESTING (test code = 68 mg/dL 70-110 L GLUBED) GLUCOSE BEDSIDE [id number] 20:05:00 Test Item Value Reference Range Interpretation Comments GLUCOSE BEDSIDE TESTING (test code 137 mg/dL 70-110 H = GLUBED) GLUCOSE BEDSIDE [id number] 16:42:00 Test Item Value Reference Range Interpretation Comments GLUCOSE BEDSIDE TESTING (test code = 98 mg/dL 70-110 N GLUBED) GLUCOSE BEDSIDE [id number] 11:13:00 Test Item Value Reference Range Interpretation Comments GLUCOSE BEDSIDE TESTING (test code 118 mg/dL 70-110 H = GLUBED) GLUCOSE BEDSIDE [id number] 07:37:00 Test Item Value Reference Range Interpretation Comments GLUCOSE BEDSIDE TESTING (test code 140 mg/dL 70-110 H = GLUBED) COMPREHENSIVE METABOLIC [id number] 06:34:00 Test Item Value Reference Range Interpretation [...] TOTAL (test code = ALKP) CBC W/AUTO [id number] 06:25:00 Test Item Value Reference Range Interpretation [...] DIFF/SCN CRITERIA = MDIFF) - CT ABDOMEN [id number]/[id number] 03:09:00 [facility] 1960 Sex: M Name: FAITH VANCE [facility] : 1960 Age/S: 60 / M [address] Unit #: [id number] Loc: [place] [address] Phys: Fede Carrera DO Acct: [id number] Dis Date: Status: ADM IN PHONE #:[phone] Exam Date: 10/31/20201919 FAX #: Reason: NAUSEA, VOMITING, DIARRHEA EXAMS: CPT: [id number] CT ABDOMEN W/CONTRAST 86905 EXAM: - CT ABDOMEN W/CONTRAST LOCATION: H61 [...] VANCE : 1960 Age/S: 60 / M [address] Unit #: [id number] Loc: [place] [address] Phys: Fede Montoya DO Acct: [id number] Dis Date: Status: ADM IN PHONE #: [phone] Exam Date: 10/31/20201919 FAX #: Reason: NAUSEA, VOMITING, DIARRHEA EXAMS: CPT: [id number] CT ABDOMEN W/CONTRAST 87031<Continued> small bowel wall thickening. The appendix is [...] Technologist:RT Rohan(R)CTDI: DLP: Trnscb Date/Time: 11/01/2020 (0309) t.SDR.TH15 Orig Print D/T: S: 11/01/2020 (0311) PAGE 2 Signed ReportGLUCOSE BEDSIDE [id number] 21:34:00 Test Item Value Reference Range Interpretation Comments GLUCOSE BEDSIDE TESTING (test code 161 mg/dL 70-110 H = GLUBED) GLUCOSE BEDSIDE [id number] 17:32:00 Test Item Value Reference Range Interpretation Comments GLUCOSE BEDSIDE TESTING (test code 136 mg/dL 70-110 H = GLUBED) - XR ABDOMEN 1 [id number] 12:44:00 [facility] 1960 Sex: M Name: FAITH VANCE [facility] : 1960 Age/S: 60 / M [address] [facility] Unit #: [id number] Loc: [place] [address] Phys: Fede Carrera DO Acct: [id number] Dis Date: Status: ADM IN PHONE #:[phone] Exam Date: 10/31/2020 1227 FAX #: Reason: Abdominal pain in the lower qudarants EXAMS: CPT: [id number] XR ABDOMEN 1 V 43149 Fluoro Time: DAP (Gy m2): Air Kerma [...] few small bowel loops. Overall nonspecific appearance. [id number] Reported and signed by: Ananth Schmidt M.D. CC: Nika Martin MD; Fede Carrera DO PAGE 1 Signed Report Name: FAITH VANCE [place] : 1960 Age/S: 60 / M [address] Unit #: [id number] Loc: [place] [address] Phys: Fede Carrera DO Acct: [id number] Dis Date: Status: ADM IN PHONE #: [phone] Exam Date: 10/31/2020 1227 FAX #: Reason: Abdominal pain in the lower qudarants EXAMS: CPT: [id number] XR ABDOMEN 1 V 39080 Fluoro Time: DAP (Gy m2): Air Kerma (mGy): <Continued> Technologist: Cecelia Arias RT(R) Trnscb Date/Time: 10/31/2020 (1244) tSHAYNAAGV Orig Print D/T: S: 10/31/2020 (1241) PAGE 2 Signed Report GLUCOSE BEDSIDE [id number] 11:58:00 Test Item Value Reference Range Interpretation Comments GLUCOSE BEDSIDE TESTING (test code 105 mg/dL 70-110 N = GLUBED) GLUCOSE BEDSIDE [id number] 08:01:00 Test Item Value Reference Range Interpretation Comments GLUCOSE BEDSIDE TESTING (test code 106 mg/dL 70-110 N = GLUBED) [id number] 22:46:00 Test Item Value Reference Range Interpretation [...] yby method. Completed by Nursing: NOGLUCOSE BEDSIDE [id number] 21:55:00 Test Item Value Reference Range Interpretation Comments GLUCOSE BEDSIDE TESTING (test code 119 mg/dL 70-110 H = GLUBED) [id number] 19:33:00 Test Item Value Reference Range Interpretation [...] method. Completed by Nursing: NOCoronavirus 2019 nCoV [id number] 18:46:00 Test Item Value Reference Range Interpretation Comments Coronavirus 2019 nCoV Negative Negative Per arnie nufacturer, Bedside (test code = negativ e results should JNPGF94KWXCO) be treated aspresumptive a nd, if inconsistent [...] with COVID-19. Spec Comments: NNT PRO-BRAIN NATRIURETIC [id number] 15:51:00 Test Item Value Reference Range Interpretation Comments NT PRO-BRAIN NATRIURETIC PEPTI 6079 PG/ML 0-100 H (test code = PROBNP) Completed by Nursing: [id number] 15:51:00 Test Item Value Reference Range Interpretation [...] may babak yby method. Completed by Nursing: NETTIESIC METABOLIC [id number] 15:51:00 Test Item Value Reference Range Interpretation [...] 26-192 N CK) Completed by Nursing: NO- ERIC CHEST 1 [id number] 15:42:00 [facility] 1960 Sex: M Name: FAITH VANCE [facility] : 1960 Age/S: 60 / M [address] Unit #: [id number] Loc: [place] [address] Phys: Todd Jacobo MD Acct: [id number] Dis Date: Status: PRE ER PHONE #:[phone] Exam Date: 10/30/2020 1524 FAX #: Reason: chest pain EXAMS: CPT: [id number] XR CHEST 1 V 84690 Fluoro Time: DAP (Gy m2): Air Kerma [...] MD PAGE 1 Signed [facility] 1960 Age/S: 60 / M [address] [place] [address] Unit #: [id number] Loc: [place] [address] Phys: Todd Jacobo MD Acct: [id number] Dis Date: Status: PRE ER PHONE #: [phone] Exam Date: 10/30/2020 1524 FAX #: Reason: chest pain EXAMS: CPT: [id number] XR CHEST 1 V 89249 Fluoro Time: DAP (Gy m2): Air Kerma (mGy): <Continued>Technologist: Kim Andrews RT(R)(CT) Trnscb Date/Time: 10/30/2020 (1542) JhonRB24 Orig Print D/T: S: 10/30/2020 (4790) PAGE 2 Signed ReportCBC W/O [id number] 15:31:00 Test Item Value Reference Range Interpretation [...] 9.70 fL 7.0-9.6 H MPV) BASIC METABOLIC [id number] 21:42:00 Test Item Value Reference Range Interpretation [...] 9.6 mg/dL 8.0-10.5 N CA) HEPATIC FUNCTION [id number] 21:42:00 Test Item Value Reference Range Interpretation [...] 114 IUnit/L 20-125 N code = ALKP) [id number] 21:42:00 Test Item Value Reference Range Interpretation Comments LIPASE (test code = LIP) 70 U/L 13-57 H [id number] 21:42:00 Test Item Value Reference Range Interpretation [...] by method. UA RFLX MICR CULT IF [id number] 21:37:00 Test Item Value Reference Range Interpretation [...] INDWELLING CATH (CEDENO)Cath Status: Under 72 hoursPROTHROMBIN [id number] 21:35:00 Test Item Value Reference Range Interpretation [...] (to prevent recurrent infar ct). THROMBOPLASTIN TIME [id number] 21:35:00 Test Item Value Reference Range Interpretation Comments THROMBOPLASTIN TIME 41.7 Seconds 25.0-39.5 H Therape utic Range: PARTIAL (test code = 50.4 - 88.3 Seconds PTT) Effective 09/04/2018 CBC W/AUTO [id number] 21:29:00 Test Item Value Reference Range Interpretation [...] = MDIFF) - CT ABD PELVIS W/O [id number] 20:49:00 [facility] 1960 Sex: M Name: FAITH VANCE [facility] : 1960 Age/S: 60 / M [address] [place] [address] Blvd Unit #: [id number] Loc: [place] [address] Phys: Gisel Eugene [facility] Acct: [id number] Dis Date: Status: REG ER PHONE #: [phone] Exam Date: 08/23/20202024 FAX #: [phone] Reason: DIFFUSE ABDOMINAL PAIN EXAMS: CPT CODE: [id number] CT ABD PELVIS W/O CONT 08600 Clinical indication: Diffuse abdominal pain. Contrast - [...] There is no evidence of hydronephrosis of eitherkidney. Punctate nonobstructive left midpole renal calculus Decompressed [...] 1 Signed Report (CONTINUED) Name: [facility] Jonn Mejia : 1960 Age/S: 60 / M [address] [place] [address] Unit #: [id number] Loc: [place] [address] Phys: Gisel Eugene Acct: [id number] Dis Date: Status: REG ER PHONE #: [phone] Exam Date: 08/23/20202024 FAX #: [phone] Reason: DIFFUSE ABDOMINAL PAIN EXAMS: CPT CODE: [id number] CT ABD PELVIS W/O CONT 71701 <Continued> Peritoneum/Other: No extraluminal air. No extraluminal [...] levels. 7. Small left pleural effusion. at 2049 Reported and signed by: Irene Katz M.D. 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 at [facility] BASIC METABOLIC [id number] 08:00:00 Test Item Value Reference Range Interpretation [...] 9.9 mg/dL 8.0-10.5 N CA) CBC W/AUTO [id number] 07:08:00 Test Item Value Reference Range Interpretation [...] DIFF REQUIRED (test code NO = MDIFF) [id number] 05:21:00 Test Item Value Reference Range Interpretation Comments GLUBED (test code = 150 MG/DL 70-110 H Performe d by certified GLUBED) 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 at [facility] [id number] 21:13:00 Test Item Value Reference Range Interpretation Comments GLUBED (test code = 129 MG/DL 70-110 H Performe d by certified GLUBED) 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 operator at [facility] [id number] 16:48:00 Test Item Value Reference Range Interpretation Comments GLUBED (test code = 116 MG/DL 70-110 H Performe d by certified GLUBED) 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 operator at [facility] [id number] 12:18:00 Test Item Value Reference Range Interpretation Comments GLUBED (test code = 136 MG/DL 70-110 H Performe d by certified GLUBED) 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 operator at [facility] [id number] 12:18:00 Test Item Value Reference Range Interpretation Comments GLUBED (test code = 151 MG/DL 70-110 H Performe d by certified GLUBED) 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 operator at [facility] CBC W/AUTO [id number] 07:32:00 Test Item Value Reference Range Interpretation [...] (test code NO = MDIFF) BASIC METABOLIC [id number] 07:29:00 Test Item Value Reference Range Interpretation [...] code = 9.0 mg/dL 8.0-10.5 N CA) [id number] 05:19:00 Test Item Value Reference Range Interpretation Comments GLUBED (test code = 135 MG/DL 70-110 H Performe d by certified GLUBED) 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 operator at [facility] [id number] 20:31:00 Test Item Value Reference Range Interpretation Comments GLUBED (test code = 189 MG/DL 70-110 H Performe d by certified GLUBED) 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 operator at [facility] [id number] 17:41:00 Test Item Value Reference Range Interpretation Comments GLUBED (test code = 140 MG/DL 70-110 H Performe d by certified GLUBED) 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 operator at [facility] - CTA CHEST FOR [id number] 13:48:00 [facility] 1960 Sex: M Name: FAITH VANCE [facility] : 1960 Age/S: 60 / M [address] [place] [address] Unit #: [id number] Loc: [place] [address] Phys: Gina Gonzalez NP Acct: [id number] Dis Date: Status: ADM INPHONE #: [phone] Exam Date: 08/12/2020911 FAX #: [phone] Reason: CP, elevated D-dimer EXAMS: CPT CODE: [id number] [place] [address] PROCEDURE: CTA CHEST INDICATION: CP, elevated D-dimer; [...] groundglass opacities in dependent portions of the lungs.There is no consolidation. UPPER ABDOMEN: Survey of viscera may be limited by early phase of PAGE 1 Signed Report (CONTINUED) Name: FAITH VANCE [facility] : 1960 Age/S: 60 / M [address] [place] [address] Blvd Unit #: [id number] Loc: [place] [address] Phys: Gina Gonzalez NP Acct: [id number] Dis Date: Status: ADM IN PHONE #: [phone] Exam Date: 08/12/2020 0912 FAX #: [phone] Reason: CP, elevated D-dimer EXAMS: CPT CODE: [id number] [place] [address] <Continued> contrast enhancement. No acute abnormality demonstrated. MUSCULOSKELETAL: Healed median sternotomy. No acute skeletal abnormality. IMPRESSION: 1. Negative for pulmonary embolic disease within limitations noted. 2. Atherosclerosis. 3. Coronary arterial calcifications with prior coronary arterial stents and CABG. 4. Interstitial edema. No consolidation. 5. Small bilateral pleural effusions. SL: [id number] at 1348 Reported and signed by: Christiano Piña M.D. 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 at [facility] CBC W/AUTO [id number] 09:17:00 Test Item Value Reference Range Interpretation [...] (test code NO = MDIFF) BASIC METABOLIC [id number] 08:28:00 Test Item Value Reference Range Interpretation [...] code = 8.3 mg/dL 8.0-10.5 N CA) [id number] 08:28:00 Test Item Value Reference Range Interpretation Comments PHOSPHOROUS (test code = PHOS) 3.6 MG/DL 2.5-4.9 N [id number] 08:28:00 Test Item Value Reference Range Interpretation Comments MAGNESIUM (test code = MAG) 1.94 mg/dL 1.80-2.40 N [id number] 07:16:00 Test Item Value Reference Range Interpretation Comments GLUBED (test code = 170 MG/DL 70-110 H Performe d by certified GLUBED) 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 operator at [facility] [id number] 07:16:00 Test Item Value Reference Range Interpretation Comments GLUBED (test code = 137 MG/DL 70-110 H Performe d by certified GLUBED) 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 operator at [facility] [id number] 17:01:00 Test Item Value Reference Range Interpretation Comments GLUBED (test code = 88 MG/DL 70-110 N Performe d by certified GLUBED) 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 operator at [facility] [id number]-[id number] 16:56:00 Test Item Value Reference Range Interpretation Comments ACT-ISTAT (test code 186 SEC 74-137 H Perform ed by certified = ACTI) 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 operator at [facility] [id number] 15:03:00 Test Item Value Reference Range Interpretation Comments ACT-ISTAT (test code 235 SEC 74-137 H Perform ed by certified = ACTI) 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 operator at [facility] [id number] 11:33:00 Test Item Value Reference Range Interpretation Comments GLUBED (test code = 97 MG/DL 70-110 N Performe d by certified GLUBED) 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 operator at [facility] [id number] 06:54:00 Test Item Value Reference Range Interpretation Comments GLUBED (test code = 136 MG/DL 70-110 H Performe d by certified GLUBED) 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 operator at [facility] BASIC METABOLIC [id number] 06:00:00 Test Item Value Reference Range Interpretation [...] COMMENTS: To be done morning of Heart [id number] 06:00:00 Test Item Value Reference Range Interpretation Comments PHOSPHOROUS (test code = PHOS) 4.1 MG/DL 2.5-4.9 N COMMENTS: To be done morning of Heart [id number] 06:00:00 Test Item Value Reference Range Interpretation Comments MAGNESIUM (test code = MAG) 1.74 mg/dL 1.80-2.40 L COMMENTS: To be done morning of Heart CathTHROMBOPLASTIN TIME [id number] 05:55:00 Test Item Value Reference Range Interpretation Comments THROMBOPLASTIN TIME 37.9 Seconds 25.0-39.5 N Therape utic Range: PARTIAL (test code = 50.4 - 88.3 Seconds PTT) Effective 09/04/2018 CBC W/AUTO [id number] 05:44:00 Test Item Value Reference Range Interpretation [...] COMMENTS: To be done morning of Heart [id number] 05:44:00 Test Item Value Reference Range Interpretation Comments GLUBED (test code = 92 MG/DL 70-110 N Performe d by certified GLUBED) 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 operator at [facility] HGBA1C%2020-08-10 17:22:00 Test Item Value Reference Range Interpretation Comments HGBA1C% (test code = HGBA1C%) 6.6 %A1C 4.8-6.0 H [id number] 17:17:00 Test Item Value Reference Range Interpretation Comments GLUBED (test code = 118 MG/DL 70-110 H Performe d by certified GLUBED) 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 operator at [facility] TSH REFLEX TO [id number] 15:37:00 Test Item Value Reference Range Interpretation Comments TSH REFLEX TO FT4 (test code = 3.19 IU/mL 0.42-5.47 N TSHREFLEX) [id number] 15:37:00 Test Item Value Reference Range Interpretation [...] y by method. COVID 19 Asymptomatic IH [id number] 11:35:00 Test Item Value Reference Range Interpretation [...] y tests. COMMENTS: If not done this [id number] 11:31:00 Test Item Value Reference Range Interpretation [...] titative results may babak y by method. [id number] 11:28:00 Test Item Value Reference Range Interpretation [...] to interpret this result as normal/abnormal . [id number] 10:48:00 Test Item Value Reference Range Interpretation Comments GLUBED (test code = 158 MG/DL 70-110 H Performe d by certified GLUBED) 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 operator at [facility] B-TYPE NATRIURETIC [id number] 08:19:00 Test Item Value Reference Range Interpretation Comments B-TYPE NATRIURETIC PEPTIDE (test 508.0 PG/ML 0-100 H code = BNP) BASIC METABOLIC [id number] 08:11:00 Test Item Value Reference Range Interpretation [...] 9.1 mg/dL 8.0-10.5 N CA) HEPATIC FUNCTION [id number] 08:11:00 Test Item Value Reference Range Interpretation [...] 174 IUnit/L 20-125 H code = ALKP) [id number] 08:11:00 Test Item Value Reference Range Interpretation Comments MAGNESIUM (test code = MAG) 1.80 mg/dL 1.80-2.40 N [id number] 08:11:00 Test Item Value Reference Range Interpretation [...] may babak y by method. BASIC METABOLIC [id number] 08:09:00 Test Item Value Reference Range Interpretation [...] code = CA) mg/dL 8.0-10.5 HEPATIC FUNCTION [id number] 08:09:00 Test Item Value Reference Range Interpretation Comments TOTAL PROTEIN (test code = PROT) g/dL 6.4-8.2 ALBUMIN (test code = ALB) g/dL 3.4-5.0 BILIRUBIN TOTAL (test code = BILT) mg/dL 0.0-1.0 BILIRUBIN DIRECT (test code = BILD) MG/DL 0.0-0.30 SGOT/AST (test code = AST) IUnit/L 15-37 SGPT/ALT (test code = ALT) IUnit/L 30-65 ALKALINE PHOSPHATASE TOTAL (test IUnit/L 20-125 code = ALKP) [id number] 08:09:00 Test Item Value Reference Range Interpretation Comments MAGNESIUM (test code = MAG) mg/dL 1.80-2.40 [id number] 08:09:00 Test Item Value Reference Range Interpretation [...] results may babak y by method. PROTHROMBIN [id number] 08:06:00 Test Item Value Reference Range Interpretation [...] (to prevent recurrent infar ct). THROMBOPLASTIN TIME [id number] 08:06:00 Test Item Value Reference Range Interpretation Comments THROMBOPLASTIN TIME 44.5 Seconds 25.0-39.5 H Therape utic Range: PARTIAL (test code = 50.4 - 88.3 Seconds PTT) Effective 09/04/2018 CBC W/AUTO [id number] 07:58:00 Test Item Value Reference Range Interpretation [...] NO = MDIFF) - XR CHEST 1 [id number] 07:57:00 [facility] : 1960 Sex: M FAX: Todd Jacobo MD [phone] [place]: St: REG FAX: Martínez Dash NP [phone] Name: FAITH VANCE [facility] : 1960 Age/S: 60/M [address] [place] [address] Unit #: [id number] Loc: [place] [address] Phys: Martínez Dash NP Acct: [id number] Dis Date: Status: REG ER PHONE #: [phone] Exam Date: 08/10/20203 FAX #: [phone] Reason: Chest Pain EXAMS: CPT CODE: [id number] XR CHEST 1 V 02514 Chest single view 08/10/2020 HISTORY: Chest pain. Comparison is made to 05/21/2018 FINDINGS: Pacemaker and midline sternotomy wires are stable. The lungs are hypoinflated. No consolidation or pleural effusion is present. No vascular congestion or interstitial edema is present. Heart size is mildly enlarged. Aorta is unchanged. IMPRESSION: Hypoinflated lungs. No acute cardiopulmonary process. SL:[id number] at 0757 Reported and signed by: Khai Kruse M.D. CC: Todd Jacobo MD; Martínez Dash NP Technologist: RT Ann(R) Trnscrd Date/Time/By: 08/10/2020 (0757) : By: [email or web address] Orig Print D/T: S: 08/10/2020 (8043) PAGE 1 Signed Report COMPREHENSIVE METABOLIC [id number] 18:02:00 Test Item Value Reference Range Interpretation [...] 50-136 H TOTAL (test code = ALKP) [id number] 18:02:00 Test Item Value Reference Range Interpretation Comments AMYLASE (test code = SERGIO) 82 Unit/L 25-115 N [id number] 18:02:00 Test Item Value Reference Range Interpretation Comments LIPASE (test code = LIP) 185 Unit/L 114-286 N COMPREHENSIVE METABOLIC [id number] 17:56:00 Test Item Value Reference Range Interpretation [...] TOTAL Unit/L 50-136 (test code = ALKP) [id number] 17:56:00 Test Item Value Reference Range Interpretation Comments AMYLASE (test code = SERGIO) Unit/L 25-115 [id number] 17:56:00 Test Item Value Reference Range Interpretation Comments LIPASE (test code = LIP) 185 Unit/L 114-286 N CBC W/AUTO [id number] 17:46:00 Test Item Value Reference Range Interpretation [...] CRITERIA MDIFF) - CT ABD PELVIS W/O [id number] 17:46:00 Name: FAITH VANCE [facility] : 1960 Age/S: 58 / M [address] [facility] [place] Unit #: [id number] Loc: [place] [address] Phys: Nila Chester MD Acct: [id number] Dis Date: Status: REG ER PHONE #: [phone] Exam Date: 01/03/2019 4604 FAX #: Reason: llq EXAMS: CPT: [id number] CT ABDPELVIS W/O CONT 35338 Location of dictation: B2 CT abdomen and [...] Signed Report (CONTINUED) Name: FAITH VANCE [facility] : 1960 Age/S: 58 / M [address] [address] [place] Unit #: [id number] Loc: [place] [address] Phys: Nila Chester MD Acct: [id number] Dis Date: Status: REG ER PHONE #: [phone] Exam Date: 01/03/2019 1733 FAX #: Reason: llq EXAMS: CPT: [id number] CT ABD PELVIS W/O CONT 63272 <Continued> at 1746 Reported and signed by: Renuka Willett M.D. CC: Nila Chester MD Technologist:Tavon Jurado, RT(R)(CT)(MRI) CTDI: DLP: Trnscb Date/Time: 01/03/2019 (174) Ramiro Orig Print D/T: S: 01/03/2019 (1748) PAGE 2 Signed ReportBedside [id number] 11:47:00 Test Item Value Reference Range Interpretation Comments Bedside Glucose (test code = 53888-2) 155 70-120 H Meter ID: [id number] [facility] Campusodium [id number] 08:31:00 Test Item Value Reference Range Interpretation Comments Sodium Level (test code = 2951-2) 139 136-145 [facility]assium Qxvta0939-31-28 08:31:00 Test Item Value Reference Range Interpretation Comments Potassium Level (test code = 2823-3) 4.0 3.5-5.1 [facility]woodChloride [id number] 08:31:00 Test Item Value Reference Range Interpretation Comments Chloride Level (test code = 2075-0) 106 98-107 [facility] KingwoodCarbon Dioxide [id number] 08:31:00 Test Item Value Reference Range Interpretation Comments Carbon Dioxide Level (test code = 2027-9) [facility] KingwoodAnion [id number] 08:31:00 Test Item Value Reference Range Interpretation Comments Anion Gap (test code = 45674-4) 12.0 8-16 [facility] KingwoodBlood Urea [id number] 08:31:00 Test Item Value Reference Range Interpretation Comments Blood Urea Nitrogen (test code = 12-14 3094-0) [facility] KingwoodCreatinine2018-06-08 08:31:00 Test Item Value Reference Range Interpretation Comments Creatinine (test code = 2160-0) 0.72 0.72-1.25 [facility]woodBUN/Creatinine Hoctu7345-91-08 08:31:00 Test Item Value Reference Range Interpretation Comments BUN/Creatinine Ratio (test code = 11-13 3097-3) [facility] KingwoodEstimat Glomerular Filtration Ayis6335-32-11 08:31:00 Test Item Value Reference Range Interpretation Comments Estimat Glomerular Filtration Rate 60- >60 (test code = 95412-7) Ranges were taken from the National Kidney Disease Education Program and the National Kidney Foundation literature.Reference ranges:60 or greater: Xlexgc97- 59 (for 3 consecutive months): Chronic kidneydisease 15 or less: Kidney failure [facility] KingwoodGlucose Jceij3571-79-80 08:31:00 Test Item Value Reference Range Interpretation Comments Glucose Level (test code = CEL6568) 195 74-118 H [facility] KingwoodCalcium Jihem4369-26-25 08:31:00 Test Item Value Reference Range Interpretation Comments Calcium Level (test code = 27106-5) 9.0 8.4-10.2 [facility] KingwoodWhite Blood Urutt3600-66-45 08:12:00 Test Item Value Reference Range Interpretation Comments White Blood Count (test code = 6690-2) 6.06 4.8-10.8 [facility] KingwoodRed Blood [id number] 08:12:00 Test Item Value Reference Range Interpretation Comments Red Blood Count (test code = 789-8) 4.22 4.3-5.7 L [facility]woodHemoglobin2018-06-08 08:12:00 Test Item Value Reference Range Interpretation Comments Hemoglobin (test code = 69932-8) 12.5 14.0-18.0 L [facility]woodHematocrit2018-06-08 08:12:00 Test Item Value Reference Range Interpretation Comments Hematocrit (test code = 4544-3) 36.2 38.2-49.6 L [facility] KingwoodMean Corpuscular Ysjcvi7773-87-07 08:12:00 Test Item Value Reference Range Interpretation Comments Mean Corpuscular Volume (test code = 85.8 81-99 787-2) [facility] KingwoodMean Corpuscular Wmitscsiot8512-53-55 08:12:00 Test Item Value Reference Range Interpretation Comments Mean Corpuscular Hemoglobin (test code 29.6 28-32 = 785-6) [facility] KingwoodMean Corpuscular Hemoglobin Hbsyjmq0715-73-11 08:12:00 Test Item Value Reference Range Interpretation Comments Mean Corpuscular Hemoglobin Concent 34.5 31-35 (test code = 786-4) [facility] KingwoodRed Cell Distribution Mwysx9148-80-15 08:12:00 Test Item Value Reference Range Interpretation Comments Red Cell Distribution Width (test code 14.2 11.7-14.4 = 03654-8) [facility] KingwoodPlatelet Mboqt9914-34-91 08:12:00 Test Item Value Reference Range Interpretation Comments Platelet Count (test code = 777-3) 582 140360 [facility] KingwoodNeutrophils (%) (Auto)2017-10-27 08:12:00 Test Item Value Reference Range Interpretation Comments Neutrophils (%) (Auto) (test code = 51.2 38.7-80.0 71925-6) [facility] KingwoodLymphocytes (%) (Auto)2017-10-27 08:12:00 [...] # (Auto) (test code = 2.0 1.0-3.2 73637-9) [facility] KingwoodMonocytes # (Auto)2017-10-27 08:12:00 [...] 0.0-0.1 [facility] KingwoodAbsolute Immature Granulocyte (nfba2100-89-17 08:12:00 Test Item Value Reference Range Interpretation Comments Absolute Immature Granulocyte (auto 0.03 0-0.1 (test code = Absolute Immature Granulocyte (auto) [facility] KingwoodCreatine Kinase [id number] 15:14:00 Test Item Value Reference Range Interpretation Comments Creatine Kinase MB (test code = 3.90 0-5.0 06690-8) [facility] KingwoodTroponin [id number] 15:14:00 Test Item Value Reference Range Interpretation Comments Troponin I (test code = TOS8521) 0.054 0-0.300 [facility] KingwoodCreatine Vmfody6743-84-59 15:07:00 Test Item Value Reference Range Interpretation Comments Creatine Kinase (test code = 2157-6) 297 30-200 H [facility] KingwoodHemoglobin A1c Ckigyvu6807-20-39 08:04:00 Test Item Value Reference Range Interpretation Comments Hemoglobin A1c Percent (test code = 12.6 4.0-7.0 H Hemoglobin A1c Percent) [facility] KingwoodTriglycerides Isdli6282-34-10 06:57:00 Test Item Value Reference Range Interpretation Comments Triglycerides Level (test code = 200 0-149 H 2571-8) [facility] KingwoodCholesterol Qchsm1180-45-17 06:57:00 Test Item Value Reference Range Interpretation Comments Cholesterol Level (test code = 2093-3) 239 0-199 H Less than 200 mg/dL Low Mgwa168 - 239 mg/dL Borderline Qflg147 mg/dl and greater High RiskCHI Saint Francis Medical CenterLDL Ruvkpxlqdgy2783-39-87 06:57:00 Test Item Value Reference Range Interpretation Comments LDL Cholesterol (test code = 2089-1) 164 60-130 H [facility] KingwoodHDL Hjmoqgfhfxq3273-66-76 06:57:00 Test Item Value Reference Range Interpretation Comments HDL Cholesterol (test code = 2085-9) 35 40-60 L [facility] KingwoodCholesterol/HDL Hjuze1854-89-81 06:57:00 Test Item Value Reference Range Interpretation Comments Cholesterol/HDL Ratio (test code = 6.8 3.9-4.7 H 9830-1) [facility] KingwoodUrine Opiates Jgxulv3084-01-53 16:18:00 Test Item Value Reference Range Interpretation Comments Urine Opiates Screen (test code = NEGATIVE NEGATIVE 32723-5) [facility] KingwoodUrine Barbiturates Pcmhsd2454-26-24 16:18:00 Test Item Value Reference Range Interpretation Comments Urine Barbiturates Screen (test code NEGATIVE NEGATIVE = 490035403) [facility] KingwoodUrine Phencyclidine Emkdlb3892-48-10 16:18:00 Test Item Value Reference Range Interpretation Comments Urine Phencyclidine Screen (test NEGATIVE NEGATIVE code = 46616-4) [facility] KingwoodUrine Amphetamines Emincs4751-55-21 16:18:00 Test Item Value Reference Range Interpretation Comments Urine Amphetamines Screen (test code NEGATIVE NEGATIVE = 60874-3) [facility] KingwoodUrine Methamphetamines Prkyxv5388-10-15 16:18:00 Test Item Value Reference Range Interpretation Comments Urine Methamphetamines Screen (test NEGATIVE NEGATIVE code = Urine Methamphetamines Screen) [facility] KingwoodUrine Benzodiazepines Refghx2451-69-06 16:18:00 Test Item Value Reference Range Interpretation Comments Urine Benzodiazepines Screen (test NEGATIVE NEGATIVE code = 44104-7) [facility] KingwoodUrine Cocaine Cboayu9436-28-52 16:18:00 Test Item Value Reference Range Interpretation Comments Urine Cocaine Screen (test code = NEGATIVE NEGATIVE 3398-5) [facility] KingwoodUrine Cannabinoids Ehfflx3786-86-63 16:18:00 Test Item Value Reference Range Interpretation Comments Urine Cannabinoids Screen (test code NEGATIVE NEGATIVE = 82058-4) THESE RESULTS ARE FOR MEDICAL TREATMENT ONLYTHIS REPORT CONTAINS UNCONFIRMED SCREENING RESULTS*POSITIVE RESULTS WILL BE CONFIRMED BY REFERENCE LAB UPON REQUEST CUT-OFFDRUG CLASS CONCENTRATION ng/mLAmphetamines 1000Methamphetamines 1000Cocaine 300Opiate 300Phencyclidine 25Cannabinoid 50Barbiturates 300Benzodiazepine 300Methadone 300[facility] KingwoodUrine Methadone Rwcmwt7899-88-55 16:18:00 Test Item Value Reference Range Interpretation Comments Urine Methadone Screen (test code = NEGATIVE NEGATIVE 15653-7) THESE RESULTS ARE FOR MEDICAL TREATMENT ONLYTHIS REPORT CONTAINS UNCONFIRMED SCREENING RESULTS*POSITIVE RESULTS WILL BE CONFIRMED BY REFERENCE LAB UPON REQUEST CUT-OFFDRUG CLASS CONCENTRATION ng/mLAmphetamines 1000Methamphetamines 1000Cocaine Metabolite 300Opiate 300Phencyclidine 44Gvotcrhqnsx51Xlykzcqjmvgm 300Benzodiazepine 300Methadone 300[facility] KingwoodProthrombin Yzqf9801-90-43 14:13:00 Test Item Value Reference Range Interpretation Comments Prothrombin Time (test code = 5902-2) 13.6 11.9-14.5 [facility] KingwoodProthromb Time International Pszeb9327-29-34 14:13:00 Test Item Value Reference Range Interpretation Comments Prothromb Time International Ratio 1.13 (test code = 6301-6) Oral Anticoagulant Therapy INR Values:1. Low Intensity Therapy 1.5 - 2.02. Moderate Intensity Therapy 2.0 - 3.03. High Intensity Therapy(1) 2.5 - 3.54. High Intensity Therapy(2) 3.0 - 4.05. Panic ValueINR > 5.0[facility] KingwoodActivated Partial Thromboplast Pomc4058-23-82 14:13:00 Test Item Value Reference Range Interpretation Comments Activated Partial Thromboplast Time 27.6 23.8-35.5 (test code = 10766-5) [facility]Globulin Tdacc9237-51-03 14:10:00 Test Item Value Reference Range Interpretation Comments Albumin/Globulin Ratio (test code = 1.2 0.8-2.0 1759-0) [facility]woodAlkaline Dcuvtcejbfb2485-75-61 14:10:00 Test Item Value Reference Range Interpretation Comments Alkaline Phosphatase (test code = 109 40-150 6768-6) [facility]woodB-Type Natriuretic Oarvgyj3906-14-72 14:10:00 Test Item Value Reference Range Interpretation Comments B-Type Natriuretic Peptide (test code = 92.8 0-100 67844-3) [facility]woodAmylase Evvqh9221-76-81 14:10:00 Test Item Value Reference Range Interpretation Comments Amylase Level (test code = 1798-8) 126 25-125 H [facility]woodLipase2018-06-04 14:10:00 Test Item Value Reference Range Interpretation Comments Lipase (test code = 3040-3) 98 8-78 H [facility]woodTotal Gbsxdxail3029-31-04 14:10:00 Test Item Value Reference Range Interpretation [...] code = 1742-6) [facility]woodTotal Kunufcy5173-84-98 14:10:00 Test Item Value Reference Range Interpretation Comments Total Protein (test code = 2885-2) 7.3 6.5-8.1 [facility]woodAlbumin2018-06-04 14:10:00 Test Item Value Reference Range Interpretation Comments Albumin (test code = 1751-7) 4.0 3.5-5.0 [facility]woodGlobulin2018-06-04 14:10:00 Test Item Value Reference Range Interpretation Comments Globulin (test code = 02880-4) 3.3 2.3-3.5 [facility]woodD-Dimer Quantitative (PE/DVT)2017-10-23 14:02:00 Test Item Value Reference Range Interpretation Comments D-Dimer Quantitative (PE/DVT) (test 0.49 0.00-0.45 H code = 58298-3) [facility]woodDirect Ooelrovaq1628-35-16 13:47:00 Test Item Value Reference Range Interpretation Comments Direct Bilirubin (test code = 00142-0) 0.2 0.0-5.0 [facility]woodMagnesium Dtkql6277-86-54 06:52:00 Test Item Value Reference Range Interpretation Comments Magnesium Level (test code = 09886-5) 1.5 1.3-2.1 [facility]woodUrine ATG2956-66-39 05:09:00 Test Item Value Reference Range Interpretation Comments Urine WBC (test code = 5821-4) NONE 0-5 [facility]woodUrine ZBK1925-33-16 05:09:00 Test Item Value Reference Range Interpretation Comments Urine RBC (test code = 19260-2) NONE 0-5 [facility]woodU[facility] Rjgnntip3434-72-10 05:09:00 Test Item Value Reference Range Interpretation Comments Urine Bacteria (test code = 88931-0) NONE NONE [facility]woodU[facility] Epithelial Zmowp7858-57-48 05:09:00 Test Item Value Reference Range Interpretation Comments Urine Epithelial Cells (test code = NONE NONE 46285-2) [facility]woodUrine Tabhj1741-66-18 04:46:00 Test Item Value Reference Range Interpretation Comments Urine Color (test code = 5778-6) YELLOW YELLOW [facility]woodU[facility] Vfitlwu8369-92-77 04:46:00 Test Item Value Reference Range Interpretation Comments Urine Clarity (test code = 95729-2) CLEAR CLEAR [facility]woodUrine Specific Dvgzvgz2338-64-41 04:46:00 Test Item Value Reference Range Interpretation Comments Urine Specific [place] (test code = 1.010 1.010-1.025 5811-5) [facility]woodUrine fB6651-37-20 04:46:00 Test Item Value Reference Range Interpretation Comments Urine pH (test code = 01567-9) 8 5-7 H [facility]woodUrine Leukocyte Uhlahhre5203-26-04 04:46:00 Test Item Value Reference Range Interpretation Comments Urine Leukocyte Esterase (test code NEGATIVE NEGATIVE = 5799-2) [facility]woodUrine Gshnjrs9454-86-85 04:46:00 Test Item Value Reference Range Interpretation Comments Urine Nitrite (test code = 02327-8) NEGATIVE NEGATIVE [facility]woodU[facility] Hgaktsr5432-16-47 04:46:00 Test Item Value Reference Range Interpretation Comments Urine Protein (test code = 5804-0) NEGATIVE NEGATIVE [facility]woodUrine Glucose (UA)2017-03-05 04:46:00 Test Item Value Reference Range Interpretation Comments Urine Glucose (UA) (test code = NEGATIVE NEGATIVE 2349-9) [facility]woodUrine Cylzsod7498-78-47 04:46:00 Test Item Value Reference Range Interpretation Comments Urine Ketones (test code = 40366-9) NEGATIVE NEGATIVE [facility]woodUrine Oajupkyngdpn0448-17-81 04:46:00 Test Item Value Reference Range Interpretation Comments Urine Urobilinogen (test code = 0.2 0.2-1 75400-8) [facility]woodUrine Jpguyimje4103-35-30 04:46:00 Test Item Value Reference Range Interpretation Comments Urine Bilirubin (test code = 1978-6) NEGATIVE NEGATIVE [facility]woodUrine Sysgf9032-57-71 04:46:00 Test Item Value Reference Range Interpretation Comments Urine Blood (test code = 33915-9) 2+ NEGATIVE H [facility]woodCTA BRAIN [facility] [address] [place] [address] PatientName: FAITH VANCE MR #: [id number] : 1960 Age/Sex: 57/M Req #: [id number] Adm Physician: ALEXIS COX MD Ordered by: ALEXIS COX MD Report #: [id number] Location: [facility] Room/Bed: [place] [address] Procedure: [id number] CT/CTA BRAIN Exam Date: 10/24/17 Exam Time: [...] PM Dictated By: ANA MARIA ARTEAGA MD 1636 Transcribed By: ANDREE on 10/24/17 1633 COPY TO: ALEXIS COX MDCT BRAIN WO [place] [address] PatientName: FAITH VANCE MR #: [id number] : 1960 Age/Sex: 57/M Req #: [id number] Adm Physician: Ordered by: KHAI WAHL MD Report #: [id number] Location: Room/Bed: __ Procedure: [id number] CT/CT BRAIN WO Exam Date: 10/23/17 Exam [...] SignedBy: ANA MARIA ARTEAGA MD on 10/23/17 4350 Transcribed By: ANDREE on 10/23/171642 [facility] [place] [address] PatientName: FAITH VANCE MR #: [id number] : 1960 Age/Sex: 57/M Req #: [id number] Adm Physician: Ordered by: KHAI WAHL MD Report #: [id number] Location: ER Room/Bed: _ Procedure: [id number] CT/CTA CHEST Exam Date: 10/23/17 Exam Time: [...] reviewed and is below limits set by [facility]). FINDINGS: Lines and Tubes: Pacemaker [...] 10/23/17 1621 COPY TO: KHAI WAHL V [facility] SINGLE (PORTABLE) [place] [address] PatientName: FAITH VANCE MR #: [id number] : 1960 Age/Sex: 57/M Req #: [id number] Adm Physician: Ordered by: KHAI WAHL MD Report #: [id number] Location: ER Room/Bed: __ Procedure: [id number] DX/CHEST SINGLE (PORTABLE) Exam Date: 10/23/17 Exam [...] TO: KHAI WAHL V MDCT BRAIN WO [place] [address] PatientName: FAITH VANCE MR #: [id number] : 1960 Age/Sex: 56/M Req #: [id number] Adm Physician: Ordered by: JACQUELYN MONTES DE OCA MD Report #: [id number] Location: ER Room/Bed: Procedure: [id number] CT/CT BRAIN WO Exam Date: Exam Time: [...] MONTES DE OCA MDCT CERVICAL SPINE [place] [address] [place] [address] PatientName: FAITH VANCE MR #: [id number] : 1960 Age/Sex: 56/M Req #: [id number] Adm Physician: Ordered by: JACQUELYN MONTES DE OCA MD Report #: [id number] Location: ER Room/Bed: Procedure: [id number] CT/CT CERVICAL SPINE WO Exam Date: Exam [...] 04/04/17206 COPY TO: JACQUELYN MONTES DE OCA [facility] SINGLE (PORTABLE) [place] [address] PatientName: FAITH VANCE MR #: [id number] : 1960 Age/Sex: 56/M Req #: [id number] Adm Physician: Ordered by: JACQUELYN MONTES DE OCA MD Report #: [id number] Location: ER Room/Bed: Procedure: [id number] DX/CHEST SINGLE (PORTABLE) Exam Date: 04/04/17 Exam [...] OCA MDHIP RIGHT 2-3 VW (+/- PELVIS) [place] [address] PatientName: FAITH VANCE MR #: [id number] : 1960 Age/Sex: 56/M Req #: [id number] Adm Physician: Ordered by: JACQUELYN MONTES DE OCA MD Report #: [id number] Location: ER Room/Bed: Procedure: [id number] DX/HIP RIGHT 2-3 VW (+/- PELVIS) Exam [...] DE OCA MDSP LUMBAR, COMPLETE MIN 4VW [place] [address] PatientName: FAITH VANCE MR #: [id number] : 1960 Age/Sex: 56/M Req #: [id number] Adm Physician: Ordered by: JACQUELYN MONTES DE OCA MD Report #: [id number] Location: ER Room/Bed: Procedure: [id number] DX/SP LUMBAR, COMPLETE MIN 4VW Exam Date: [...] 04/04/17227 COPY TO: JACQUELYN MONTES DE OCA [place] [address] PatientName: FAITH VANCE MR #: [id number] : 1960 Age/Sex: 56/M Req #: [id number] [facility] Physician: NICHELLE PALACIOS MD Ordered by: SCOTT AMIN MD Report #: [id number] Location: [facility] Room/Bed: [place] [address] Procedure: [id number] US/US ABDOMEN COMPLETE Exam Date: 03/08/17 Exam [...] on 03/08/17 1040 COPY TO: SCOTT AMIN [facility] (PORTABLE) [place] [address] PatientName: FAITH VANCE MR #: [id number] : 1960 Age/Sex: 56/M Req #: [id number] Adm Physician: Ordered by: JACQUELYN MONTES DE OCA MD Report #: [id number] Location: ER Room/Bed: Procedure: [id number] DX/CHEST SINGLE (PORTABLE) Exam Date: 03/05/17 Exam Time: 0445 REPORT STATUS: SignedCHEST SINGLE (PORTABLE), 03/05/2017 4:15 [...]
[2022-07-02] MEDS ORDERED: ONDANSETRON 4 MG/2 ML VIAL ONE (00:09)
[2022-07-02] MEDS ORDERED: MORPHINE 4 MG/ML SYR ONE (00:11)
[2022-07-02 00:26] LABS: Absolute Lymphocytes (CBC) 1.1 K/uL (0.7-4.9); RBC Red Blood Cell Count 4.88 M/uL (4.33-5.43)
[2022-07-02 00:31] LABS: Hematocrit 41.2 % (39.6-49.0); Lymphocytes % 21.2 % (15.3-44.8); MCV 84.4 fL (80-100); MPV 7.4 fL (7.6-11.3)
[2022-07-02 00:41] LABS: Albumin 2.6 g/dL (3.4-5.0); Bilirubin Direct 0.4 mg/dL (0-0.2); Bilirubin Total 0.7 mg/dL (0.2-1.0); Magnesium 1.9 mg/dL (1.6-2.4); Potassium 3.7 mmol/L (3.5-5.1); Protein, Total 6.7 g/dL (6.4-8.2); Troponin High Sensitivity 33.4 pg/mL (<58.9)
[2022-07-02] MEDS ORDERED: FUROSEMIDE 40 MG/4 ML VIAL ONE (01:10)
--- NOTE | 2022-07-02 02:58 | ER ---
Nurse's Notes [facility] Name: Ernie Rooney Age: 62 yrs Sex: Male : 1960 Arrival Date: 07/01/2022 Time: 23:48 Bed 4 Private MD: Diagnosis: Chest pain, unspecified;Unspecified combined systolic (congestive) and diastolic (congestive) heart failure Presentation: 07/01 23:51 Chief complaint: Patient states: "My chest hurts" EMS states: "We were toned out for vc1 low left chest pain that started about an hour ago.". Coronavirus screen: Vaccine status: Patient reports receiving the 1st dose of the Covid vaccine. Client denies travel out of the [place] in the last 14 days. At this time, the client does not indicate any symptoms associated with coronavirus-19. Ebola Screen: Patient negative for fever greater than or equal to 101.5 degrees Fahrenheit, and additional compatible Ebola Virus Disease symptoms Patient denies exposure to infectious person. Patient denies travel to an Ebola-affected area in the 21 days before illness onset. No symptoms or risks identified at this time. Initial Sepsis Screen: Does the patient meet any 2 criteria? No. Patient's initial sepsis screen is negative. Does the patient have a suspected source of infection? No. Patient's initial sepsis screen is negative. Risk Assessment: Do you want to hurt yourself or someone else? Patient reports no desire to harm self or others. Onset of symptoms was July 01, 2022 at 23:45. 23:51 Method Of Arrival: EMS: [facility] vc1 23:51 Acuity: TONE 3 vc1 Triage Assessment: 23:57 General: Appears in no apparent distress. uncomfortable, slender, Behavior is vc1 cooperative, fussy. Pain: Complains of pain in left lateral anterior chest and left breast Pain radiates to back and left arm Pain currently is 9 out of 10 on a pain scale. at worst was 10 out of 10 on a pain scale. Noted to be grimacing, moaning, resistant to movement. EENT: No deficits noted. No signs and/or symptoms were reported regarding the EENT system. Neuro: No deficits noted. Cardiovascular: Reports chest pain, Chest pain is described as severe, quality is clutching, sharp. Respiratory: No deficits noted. GI: No deficits noted. : No deficits noted. No signs and/or symptoms were reported regarding the genitourinary system. Derm: No deficits noted. No signs and/or symptoms reported regarding the dermatologic system. Musculoskeletal: No deficits noted. No signs and/or symptoms reported regarding the musculoskeletal system. Historical: - Allergies: 23:56 Nitroglycerin; vc1 - PMHx: 23:56 Arthritis; Back pain; CAD; CHF; CVA; Depression; Diabetes - NIDDM; Fibromyalgia; GERD; vc1 Hyperlipidemia; Hypertensive disorder; Hypothyroidism; Left sided weakness from previous CVA; Myocardial infarction; Pacemaker; - PSHx: 23:56 bilat BKA's; bypass; CABG; vc1 - Immunization history:: Client reports receiving the Juan Miguel \\T\\ Juan Miguel single-dose vaccine. - Social history:: Smoking status: Patient reports the use of cigarette tobacco products, Patient/guardian denies using tobacco, the patient reports quitting approximately 20 years ago. Screenin:56 Abuse screen: Denies threats or abuse. Nutritional screening: No deficits noted. vc1 Tuberculosis screening: No symptoms or risk factors identified. 07/02 00:00 [facility] ED Fall Risk Assessment (Adult) History of falling in the last 3 months, vc1 including since admission No falls in past 3 months (0 pts) Confusion or Disorientation No (0 pts) Intoxicated or Sedated No (0 pts) Impaired Gait No (0 pts) Mobility Assist Device Used No (0 pt) Altered Elimination No (0 pt). Assessment: 07/01 23:50 Pain: Pain began suddenly, 1 hour ago. vc1 07/02 01:00 Reassessment: No changes from previously documented assessment. Patient and/or family vc1 updated on plan of care and expected duration. Pain level reassessed. Patient is alert, oriented x 3, equal unlabored respirations, skin warm/dry/pink. 02:00 Reassessment: No changes from previously documented assessment. Patient and/or family vc1 updated on plan of care and expected duration. Pain level reassessed. Patient is alert, oriented x 3, equal unlabored respirations, skin warm/dry/pink. 03:34 Reassessment: No changes from previously documented assessment. Patient and/or family vc1 updated on plan of care and expected duration. Pain level reassessed. Patient is alert, oriented x 3, equal unlabored respirations, skin warm/dry/pink. Patient states symptoms have improved. 04:02 Reassessment: waiting on transportation. vc1 Vital Signs: 07/01 23:51 BP 157 / 96; Pulse 102; Resp 12; Temp 97.3; Pulse Ox 99% ; Weight 71.21 kg; Height 5 vc1 ft. 7 in. (170.18 cm); Pain 9/10; 07/02 00:00 BP 154 / 94; Pulse 96; Resp 8; Pulse Ox 99% ; vc1 01:00 BP 136 / 82; Pulse 85; Resp 13; Pulse Ox 99% on R/A; vc1 02:00 BP 119 / 72; Pulse 82; Resp 15; Pulse Ox 96% ; vc1 03:00 BP 125 / 75; Pulse 89; Resp 16; Pulse Ox 97% on R/A; vc1 07/01 23:51 Body Mass Index 24.59 (71.21 kg, 170.18 cm) vc1 ED Course: 07/01 23:48 Patient arrived in ED. wm 23:48 Hawk Parrish MD is Attending Physician. rn 23:48 Mustapha Joe PA is PHCP. cp 23:50 Arm band placed on right wrist. EKG completed in triage. Results shown to MD. vc1 23:50 Patient has correct armband on for positive identification. Placed in gown. Bed in low vc1 position. Client placed on continuous cardiac and pulse oximetry monitoring. NIBP monitoring applied. 23:56 Triage completed. vc1 23:57 Patient maintains SpO2 saturation greater than 95% on room air. vc1 07/02 00:26 XRAY Chest (1 view) In Process Unspecified. EDMS 00:51 Michelle Spivey, RN is Primary Nurse. vc1 03:34 No provider procedures requiring assistance completed. IV discontinued, intact, vc1 bleeding controlled, No redness/swelling at site. Pressure dressing applied. Administered Medications: 00:13 Drug: morphine 4 mg Route: IVP; Infused Over: 4 mins; Site: left forearm; vc1 00:13 Drug: Zofran (Ondansetron) 4 mg Route: IVP; Site: left forearm; vc1 01:11 Drug: Lasix (furosemide) 40 mg Route: IVP; Site: left forearm; vc1 Medication: 07/01 23:57 VIS not applicable for this client. vc1 Outcome: 07/02 02:57 Discharge ordered by . raul 03:34 Condition: good vc1 03:34 Discharge instructions given to patient, Instructed on discharge instructions, follow up and referral plans. Demonstrated understanding of instructions, follow-up care. 04:35 Discharged to home via ambulance. vc1 04:35 Patient left the ED. vc1 Signatures: Dispatcher [employer] EDMS Hawk Parrish MD MD rn Mustapha Joe PA PA cp Marsh, Wendy wm Calcote, Vanessa, RN RN vc1
--- NOTE | 2022-07-02 02:58 | EDPHYS ---
Physician Documentation [facility] Name: Ernie Rooney Age: 62 yrs Sex: Male : 1960 Arrival Date: 07/01/2022 Time: 23:48 Bed 4 Private MD: ED Physician Hawk Parrish HPI: 07/01 23:55 This 62 yrs old Male presents to ER via EMS with complaints of Chest Pain. cp 23:55 The patient or guardian reports chest pain that is located primarily in the anterior cp chest wall, left. Onset: 1 hour(s) ago. The pain radiates to the left arm, left back. Associated signs and symptoms: Pertinent positives: abdominal pain, shortness of breath, Pertinent negatives: diaphoresis, vomiting. The chest pain is described as constant. Duration: The patient or guardian reports a single episode, that is still ongoing. 23:55 Severity of pain: in the emergency department the pain is unchanged despite EMS cp interventions. The patient has experienced similar episodes in the past, multiple times. Historical: - Allergies: 23:56 Nitroglycerin; vc1 - PMHx: 23:56 Arthritis; Back pain; CAD; CHF; CVA; Depression; Diabetes - NIDDM; Fibromyalgia; GERD; vc1 Hyperlipidemia; Hypertensive disorder; Hypothyroidism; Left sided weakness from previous CVA; Myocardial infarction; Pacemaker; - PSHx: 23:56 bilat BKA's; bypass; CABG; vc1 - Immunization history:: Client reports receiving the Juan Miguel \T\ Juan Miguel single-dose vaccine. - Social history:: Smoking status: Patient reports the use of cigarette tobacco products, Patient/guardian denies using tobacco, the patient reports quitting approximately 20 years ago. ROS: 23:58 Constitutional: Negative for body aches, chills, fever, poor PO intake. cp 23:58 Eyes: Negative for injury, pain, redness, and discharge. cp 23:58 Cardiovascular: Positive for chest pain, Negative for palpitations. 23:58 Respiratory: Positive for shortness of breath, Negative for cough, wheezing. 23:58 Abdomen/GI: Negative for abdominal pain, vomiting, diarrhea, constipation. Exam: 23:55 ECG was reviewed by the Attending Physician. cp 23:59 Constitutional: The patient appears in no acute distress, alert, awake, cp non-diaphoretic, non-toxic, well developed, well nourished, uncomfortable. 23:59 Head/Face: Normocephalic, atraumatic. cp 23:59 Eyes: Periorbital structures: appear normal, Pupils: equal, round, and reactive to light and accomodation, Extraocular movements: intact throughout, Conjunctiva: normal, no exudate, no injection, Sclera: no appreciated abnormality, Lids and lashes: appear normal, bilaterally. 23:59 ENT: External ear(s): are unremarkable, Nose: is normal, Mouth: Lips: moist, Oral mucosa: pink and intact, moist, Posterior pharynx: is normal, airway is patent, no erythema, no exudate. 23:59 Neck: ROM/movement: is normal, is supple, without pain, no range of motions limitations. 23:59 Chest/axilla: Inspection: normal, Palpation: crepitus, is not appreciated, tenderness, is not appreciated. 23:59 Cardiovascular: Rate: tachycardic, Rhythm: regular, Edema: is not appreciated, JVD: is not appreciated. 23:59 Respiratory: the patient does not display signs of respiratory distress, Respirations: labored breathing, that is mild, shallow respirations, that is mild, Breath sounds: are clear throughout, no decreased breath sounds, no stridor, no wheezing. 23:59 Abdomen/GI: Inspection: abdomen appears normal, Bowel sounds: active, all quadrants, Palpation: soft, in all quadrants, mild abdominal tenderness, in the right upper quadrant and left upper quadrant, rebound tenderness, is not appreciated, involuntary guarding, is not appreciated. 23:59 Neuro: Orientation: to person, place \T\ time. Mentation: is normal, Motor: moves all fours, strength is normal, Sensation: no obvious gross deficits. 23:59 Musculoskeletal/extremity: Extremities: bilateral BKA. cp Vital Signs: 23:51 BP 157 / 96; Pulse 102; Resp 12; Temp 97.3; Pulse Ox 99% ; Weight 71.21 kg; Height 5 vc1 ft. 7 in. (170.18 cm); Pain 9/10; 02/11 00:00 BP 154 / 94; Pulse 96; Resp 8; Pulse Ox 99% ; vc1 01:00 BP 136 / 82; Pulse 85; Resp 13; Pulse Ox 99% on R/A; vc1 02:00 BP 119 / 72; Pulse 82; Resp 15; Pulse Ox 96% ; vc1 03:00 BP 125 / 75; Pulse 89; Resp 16; Pulse Ox 97% on R/A; vc1 07/01 23:51 Body Mass Index 24.59 (71.21 kg, 170.18 cm) vc1 MDM: 07/01 23:48 Patient medically screened. rn 07/02 02:45 Data reviewed: vital signs, nurses notes, lab test result(s), EKG, radiologic studies, cp plain films, I have discussed the patient's presentation/case with the attending Emergency Department Physician; and as a result, I will discharge patient. 02:45 Consideration of Admission/Observation Escalation of care including cp admission/observation considered. I considered the following discharge prescriptions or medication management in the emergency department Medications were administered in the Emergency Department. See MAR. Independent interpretation of the following test(s) in the Emergency Department X-Ray: My interpretation is chest negative for focal pneumonia. Test considered but Not performed: CT: chest, abdomen/pelvis. Care significantly affected by the following chronic conditions: Diabetes, Congestive Heart Failure, Cancer. Care significantly affected by the following Social Determinants of Health: compliance with meds. patient admits he has not picked up prescription for diuretic at pharmacy and has not been taking diuretic. Counseling: I had a detailed discussion with the patient and/or guardian regarding: the historical points, exam findings, and any diagnostic results supporting the discharge/admit diagnosis, lab results, radiology results, the need for outpatient follow up, a family practitioner, to return to the emergency department if symptoms worsen or persist or if there are any questions or concerns that arise at home. Response to treatment: the patient's symptoms have markedly improved after treatment. Special discussion: Based on the patient's history, exam, and Dx evaluation, there is no indication for emergent intervention or inpatient Tx. It is understood by the patient/guardian that if the Sx's persist or worsen they need to return immediately for re-evaluation. 07/01 23:49 Order name: Basic Metabolic Panel; Complete Time: 00:44 cp 07/02 00:44 Interpretation: Normal except: CL 111; CO2 20; CA 8.2. cp 07/01 23:49 Order name: CBC with Diff; Complete Time: 00:44 cp 07/02 00:45 Interpretation: Normal except: HGB 13.4; RDW 16.0; MPV 7.4. cp 07/01 23:49 Order name: LFT's; Complete Time: 00:44 cp 07/02 00:45 Interpretation: Normal except: ALK 177; BILID 0.4; ALB 2.6; GLOB 4.1; A/G 0.6. cp 02 23:49 Order name: Magnesium; Complete Time: 00:44 cp 07/01 23:49 Order name: NT PRO-BNP; Complete Time: 00:44 cp 07/02 00:46 Interpretation: Abnormal: NT PRO-BNP 6910. cp 02 23:49 Order name: Troponin HS; Complete Time: 00:44 cp 07/01 23:49 Order name: XRAY Chest (1 view) cp 07/01 23:49 Order name: EKG; Complete Time: 23:50 cp 07/01 23:49 Order name: Cardiac monitoring; Complete Time: 00:02 cp 07/01 23:49 Order name: EKG - Nurse/Tech; Complete Time: 00:02 cp 07/01 23:49 Order name: Lipase; Complete Time: 00:44 cp 07/01 23:49 Order name: IV Saline Lock; Complete Time: 00:03 cp 07/01 23:49 Order name: Labs collected and sent; Complete Time: 00:03 cp 07/01 23:49 Order name: O2 Per Protocol; Complete Time: 00:03 cp 07/01 23:49 Order name: O2 Sat Monitoring; Complete Time: 00:03 cp EC/10 23:55 Rate is 101 beats/min. Rhythm is regular, Paced. QRS interval is prolonged at 162 msec. cp QT interval is normal. T waves are Inverted in leads I, aVL. Interpreted by me. Reviewed by me. Administered Medications: 07/02 00:13 Drug: morphine 4 mg Route: IVP; Infused Over: 4 mins; Site: left forearm; vc1 00:13 Drug: Zofran (Ondansetron) 4 mg Route: IVP; Site: left forearm; vc1 01:11 Drug: Lasix (furosemide) 40 mg Route: IVP; Site: left forearm; vc1 Disposition Summary: 07/02/22 02:57 Discharge Ordered Location: Home cp Problem: an acute exacerbation cp Symptoms: have improved cp Condition: Stable cp Diagnosis - Chest pain, unspecified cp - Unspecified combined systolic (congestive) and diastolic (congestive) heart failure cp Followup: cp - With: Private Physician - When: 2 - 3 days - Reason: Recheck today's complaints Discharge Instructions: - Discharge Summary Sheet cp - Nonspecific Chest Pain, Adult cp - Aspirin and Your Heart cp - Heart Failure Action Plan cp - Heart Failure Exacerbation cp Forms: - Medication Reconciliation Form cp - Thank You Letter cp - Antibiotic Education cp - Prescription Opioid Use cp Addendum: 07/04/2022 09:14 Co-signature as Attending Physician, Hawk Parrish MD I reviewed the patient's care r n provided by the Advanced Practice Provider and agree with the diagnosis and treatment plan. Signatures: Dispatcher [employer] EDMS Hawk Parrish MD MD rn Mustapha Joe PA PA cp Calcote, Vanessa RN RN vc1
[2022-07-02 04:40] VITALS: TEMP 97.3
[2022-07-02 04:45] VITALS: BP 125/75; O2SAT 97
--- NOTE | 2022-07-03 15:47 | RAD REPORT ---
EXAM DESCRIPTION: RAD - Chest Single View - 07/02/2022 12:24 am CLINICAL HISTORY: The patient is 62 years old and is Male; CHEST PAIN TECHNIQUE: Frontal view of the chest. COMPARISON: No relevant prior studies available. FINDINGS: Lungs: Prominent interstitial markings suggestive of interstitial edema. Pleural space: Blunting of the left costophrenic angle which may indicate left pleural effusion. Left hemidiaphragm is obscured which can be seen with left pleural effusion, as well as left lower lobe consolidation or atelectasis. No pneumothorax. Heart: Unremarkable. Mediastinum: Unremarkable. Bones/joints: Median sternotomy wires. Tubes, lines and devices: Left-sided pacemaker. IMPRESSION: 1. Prominent interstitial markings suggestive of interstitial edema. 2. Blunting of the left costophrenic angle which may indicate left pleural effusion. 3. Left hemidiaphragm is obscured which can be seen with left pleural effusion, as well as left low er lobe consolidation or atelectasis. Electronically signed by: Todd Torres MD 07/02/2022 1:18 AM [employer] Due to temporary technical issues with the PACS/Fluency reporting system, reports are being signed by the in house radiologists without review as a courtesy to insure prompt reporting. The interpreting radiologist is fully responsible for the content of the report.
--- NOTE | 2022-07-05 17:24 | EKG ---
Test Date: 2022-07-01 Test Time: 23:47:23 [employer]f [employer] Anne[employer] Operator: RV MEASUREMENT RESULTS: Intervals: Rate: 101 [place]: 148 QRSD: 162 QT: 408 QTc: 529 [place]: P: 27 GA: 148 QRS: -45 T: 121 INTERPRETIVE STATEMENTS: Electronic ventricular pacemaker Compared to ECG 06/19/2022 10:40:06 No significant changes Electronically Signed On 07-05-22 17:15:47 CARPENTER PACKING by Kavin Keenan
== END 2022-07-02 04:35 | disposition home or self-care (01) ==
LOC: ER 23:42
DX: R07.89 Other chest pain (principal); I50.40 Unspecified combined systolic (congestive) and diastolic (congestive) heart failure; I10 Essential (primary) hypertension; Z95.1 Presence of aortocoronary bypass graft; Z95.0 Presence of cardiac pacemaker; Z86.73 Personal history of transient ischemic attack (TIA), and cerebral infarction without residual deficits; Z88.8 Allergy status to other drugs, medicaments and biological substances; Z89.512 Acquired absence of left leg below knee; Z89.511 Acquired absence of right leg below knee
CPT/HCPCS: 93005; 85025; 80048; 36415; 83735; 80076; 84484; 83690; 83880; 71045; 96375; 96374; 99284; J1940; J2405

== ENCOUNTER 2022-07-05 05:18 | Emergency (ER) | payer OTHER ==
--- OUTSIDE RECORDS SUMMARY | 2022-07-05 05:27 | XMS REPORT | Continuity of Care Document ---
:1960 Author Organization [facility] t Address [address] [place] [address] Care Team Providers Name Role Phone MONIKA HALL MD Primary Care Physician [id number] Attending Clinician Unavailable Harshal Zhu Attending Clinician Unavailable Finn Shah Attending Clinician Unavailable Doctor Unassigned, [place] Attending Clinician Unavailable Josselyn Harding RN Attending Clinician Unavailable MARTHA ROWE Attending Clinician Unavailable Ana Maria Meza DO Attending Clinician Martha Rowe MD Attending Clinician Troy KU Attending Clinician Unavailable Troy Wahl Attending Clinician MIHAELA MARTIN Attending Clinician Unavailable Mihaela Martin NP Attending Clinician Micaela Feliciano RN Attending Clinician Unavailable Curtis Xavier MD Attending Clinician Braydon HALL, Oc Attending Clinician OC BRYSON Attending Clinician Unavailable ANA MARIA MEZA Attending Clinician Unavailable Jameson Mejia DO Attending Clinician Humaira HALL, Lizett Attending Clinician JYOTI CEDENO S Attending Clinician Unavailable Jyoti Mujica S Attending Clinician Love SCRUGGS, Rico Morales Attending Clinician Unavailable Capri SCRUGGS, Marcella Wynn Attending Clinician Unavailable GEOFFREY HILL Attending Clinician Unavailable Brandyn Dmuont ENP Attending Clinician Liz HALL, Geoffrey Attending Clinician Portillo Attending Clinician Unavailable AMBIKA [...] Attending Clinician Alis Garcia MD Attending Clinician [phone] Kaylyn Calvin MD Attending Clinician Tha Gunter [...] Unavailable Casper RAE, Michael Gaxiola Attending Clinician [phone] Nova RAE, Cortney Law Attending Clinician [phone] Emy SCRUGGS, Rhonda Attending Clinician Dennis Finley MD Attending Clinician Carlos Allen MD Attending Clinician ALEXIS COX Attending Clinician Unavailable JACQUELYN MONTES DE OCA Attending Clinician Unavailable NICHELLE PALACIOS Attending Clinician Unavailable [id number] Admitting Clinician Unavailable Nika Martin Admitting Clinician Unavailable KNOW, DOES_NOT Admitting Clinician Unavailable Physician, No Primary or Family Admitting Clinician UnavailMARTHA Balbuena Admitting Clinician Unavailable Martha Rowe MD Admitting Clinician Troy KU Admitting Clinician Unavailable MIHAELA MARTIN Admitting Clinician Unavailable Oc Bryson MD Admitting Clinician CO BRYSON Admitting Clinician Unavailable LIZETT GERARDO Admitting Clinician Unavailable Lizett Gerardo [...] Admitting Clinician Unavailable Michael Hernandez Admitting Clinician [phone] Malia HALL Dennis Arreola Admitting Clinician ALEXIS COX Admitting Clinician Unavailable NICHELLE PALACIOS Admitting Clinician Unavailable Payers Payer Name Policy Type Policy Number Effective Date Expiration Date Sujit daugherty [facility] [id number] Telly [id number] 2018spring 00:00:00 Med fusion [id number] 2004 [facility] Patient [...] Added automatic ally from request for surgery [id number] Troponin I Troponin I Disease Active 2020-0 [...] 00:00: [place] involving involving 00 Medi uriel [place] 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 Type 2 Type 2 Disease Active 2019 Univers diabetes diabetes 8-29 ity of mellitus mellitus 00:00: [place] without without 00 Medical complicati complicati Br anch on, on, without without long-term long-term current current use of use of insulin insulin Essential Essential Disease Active Uni vers hypertensi hypertensi 01-17 it y of on on 00:00: [place] [address] Medical Branch Other Other Disease Active Univers hyperlipid hyperlipid 01-17 it y of emia emia 00:00: [place] [address] Medical Branch Stroke Stroke Disease Active Univers 5-12 ity of 00:00: [place] [facility] Left-sided Left-sided Disease Active U nivers weakness weakness - ity of 00:00: [place] [facility] Left sided Left sided Disease Active U nivers numbness numbness 5- ity of 00:00: [place] 00 Medical Branch S/P admn S/P admn [...] rs angina angina 4-10 ity of 00:00: [place] [facility] Atypical Atypical Disease Active Unive rs chest pain chest pain 2-22 it y of 00:00: [place] [address] Medical Branch Chest pain Chest pain Problem [facility] Coronary CAD Problem Active [facility] artery (coronary [facility] disease artery Patient disease) [facility] Diabetic DKA Problem Active [facility] ketoacidos (diabetic Esme es is ketoacidos Patien t es) [facility] Hyperglyce Hyperglyce Problem Active [facility] bambi bambi [facility] Hypertensi Hypertensi Problem Active [facility] on on [facility] Pancreatit Pancreatit Problem Active [facility] is is [facility] Uncontroll Uncontroll Problem Active [facility] diabetes diabetes Patien t mellitus mellitus [facility] Allergies, Adverse Reactions, Alerts Allergy Allergy Status Severity Reaction(s) Onset Inactive Treating Comm ents Source Name Type Date Date Clinician No Known DA Active U [facility] 3-22 [place] [facility] 00:[facility]: d 00 [facility] No Known DA Active U [facility] Allergie 3- [place] 00:00: d 00 [facility] No Known DA Active U 2017-05 [facility] Allergie 2-31 [facility] s 00:00: Mejia 00 [facility] No Known DA Active U 2017-05 [facility] Allergie 2-31 Clear s 00:00: Mejia 00 [facility] No Known DA Active U [facility] Allergie 3- [place] 00:00: e 00 [facility] NO KNOWN Drug Active Univers ALLERGIE Class ity of S [place] [facility] Social History Social Habit Start Date Stop Date Quantity Comments Source History of Passive smoker University of tobacco use [place] [facility] History SDOH University o f Alcohol Frequency [place] M edical [facility] History SDOH University o f Alcohol Std [place] Medical Drinks Branch History SDOH University o f Alcohol Binge [place] Medic al Branch History SDOH Food 2022-02-11 2022-02-11 1 Univers ity of Worry 00:00:00 00:00:00 [place] [facility] History SDOH Food 2022-02-11 2022-02-11 1 Univers ity of Scarcity 00:00:00 00:00:00 [place] [facility] History SDOH 2022-02-11 2022-02-11 2 University o f Transport Med 00:00:00 00:00:00 [place] Medic al Branch History SDOH 2022-02-11 2022-02-11 2 University o f Transport Non-Med 00:00:00 00:00:00 [place] M edical [facility] Exposure to 2022-01-30 2022-02-09 Not sure University of SARS-CoV-2 00:00:00 20:09:00 [place] Medical (event) Branch Tobacco use and 2022-02-09 2022-02-09 Smokeless tobacco Un iversity of exposure 00:00:00 00:00:00 non-user [place] [facility] Alcohol intake 2022-02-09 2022-02-09 1.71 /d University of 00:00:00 00:00:00 [facility] Tobacco Comment 2022-02-09 2022-02-09 quit 15 years ago Un iversity of 00:00:00 00:00:00 [facility] Education 2021-10-27 2021-10-27 9 University of 00:00:00 00:00:00 [facility] History SDOH 2020-03-16 2020-03-16 3 University o f Financial 00:00:00 00:00:00 [facility] Alcohol Comment 2019-07-18 2019-07-18 quit drinking Univvish sitvashti of 00:00:00 00:00:00 2013 but drank [facility] heavily before Branch this Sex Ass[birth year] At [birth year] LUCY Sanders 00:00:00 00:00:00 [facility] Smoking Status Start Date Stop Date Source Ex-smoker 2022-02-09 00:00:00 2022-02-09 00:00:00 Universi ty of [facility] Medications Ordered Filled Start Stop Current Ordering Indication Dosage Frequency Signature Comments Components Source Medication Medication Date Date Medication? Clinician (SIG) Name Name aspirin 81 2021- No [id number] 81mg Take 1 Univers mg chewable 9-23 10-24 tablet by it y of tablet 00:00: 04:59 mouth [place] 00 :00 daily with Medical breakfast Branch for 30 days. glipiZIDE 5 2021- No [id number] 5mg Take 1 Univers mg tablet 9-23 10-24 tablet by ity of 00:00: 04:59 mouth in [place] 00 :00 the Medical morning Branch for 30 days. levothyroxi 2021- No [id number] 50ug Take 1 Univers ne 50 mcg 9-23 10-24 tablet by ity of tablet 00:00: 04:59 mouth [place] 00 :00 every Medical morning Branch for 30 days. lisinopriL 2021- No [id number] 2.5mg Take 1 Univers 2.5 mg 9-23 10-24 tablet by ity of tablet 00:00: 04:59 mouth in [place] 00 :00 the Medical morning Branch for 30 days. spironolact 2021- No [id number] 25mg Take 1 Univers one 25 mg 9-23 10-24 tablet by ity of tablet 00:00: 04:59 mouth in [place] 00 :00 the Medical morning [place] for 30 days. tamsulosin 2021- No [id number] .4mg Take 1 Univers 0.4 mg 24 9-23 10-24 capsule by ity of hr capsule 00:00: 04:59 mouth in [facility] 00 :00 the Medical morning Branch for 30 days. aspirin 81 2021-2021- No [id number] 81mg Take 1 Univers mg chewable 9-23 10-24 tablet by it y of tablet 00:00: 04:59 mouth [place] 00 :00 daily with [facility] breakfast Branch for 30 days. glipiZIDE 5 2021- No [id number] 5mg Take 1 Univers mg tablet 9- 10-24 tablet by ity of 00:00: 04:59 mouth in [place] 00 :00 the [facility] morning [place] for 30 days. levothyroxi 2021- No [id number] 50ug Take 1 Univers ne 50 mcg 9-23 10-24 tablet by ity of tablet 00:00: 04:59 mouth [place] 00 :00 every [facility] morning [place] for 30 days. lisinopriL 2021- No [id number] 2.5mg Take 1 Univers 2.5 mg 9-23 10-24 tablet by ity of tablet 00:00: 04:59 mouth in [place] 00 :00 the [facility] for 30 days. spironolact 2021- No [id number] 25mg Take 1 Univers one 25 mg 9-23 10-24 tablet by ity of tablet 00:00: 04:59 mouth in [place] 00 :00 the [facility] for 30 days. tamsulosin 2021- No [id number] .4mg Take 1 Univers 0.4 mg 24 9-23 10-24 capsule by ity of hr capsule 00:00: 04:59 mouth in [facility] 00 :00 the [facility] morning [place] for 30 days. sulfur 2021- No [id number] 5mL 5 mL, Unive rs hexafluorid 02-10 Intravenou i ty of e microsphr 16:30: 16:30 s, ONCE, 1 [place] (LUMASON) 00 :00 dose, On Medica l injection 5 Annie Branch mL 02/10/22 at 1130, Routine
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 traMADoL 2021-0 Yes 50mg 50 mg, Univers (ULTRAM) 02-10 Oral, ity of tablet 50 15:10: Q6HPRN, [place] mg 57 Starting Medical on [facility] Branch 02/10/22 at 1010, Until Discontinu ed, Routine, Pain (scale 7-10) lisinopriL 0 Yes 2.5mg 2.5 mg, Uni vers (PRINIVIL,Z 02-10 Oral, ity of ESTRIL) 14:00: DAILY, [place] tablet 2.5 00 First dose Med ical mg on [facility] Branch 02/10/22 at 0900, Until Discontinu ed, Routine glipiZIDE 0 Yes 5mg 5 mg, Univers (GLUCOTROL) 02-10 Oral, ity of tablet 5 mg 14:00: DAILY, [place] 00 First dose Medical on [facility] 02/10/22 at 0900, Until Discontinu ed, Routine enoxaparin 0 Yes 30mg 30 mg, Unive rs (LOVENOX) 02-10 Subcutaneo ity of injection 14:00: [place], DAILY, [place] 30 mg 00 First dose Medical on [facility] 02/10/22 at 0900, Until Discontinu ed, Routine levothyroxi Yes 50ug 50 mcg, Uni vers ne 02-10 Oral, ity of (SYNTHROID) 11:00: QAM-0600, [place] tablet 50 00 First dose Medi uriel mcg on [facility] Branch 02/10/22 at 0600, Until Discontinu ed, Routine morpHINE (2 2021- No 2mg 2 mg, Slow Univers mg/mL) 02-10 IV Push, ity of injection 2 08:45: 08:01 ONCE, 1 [place] mg 00 :00 dose, On [facility] 02/10/22 at 0345, Routine furosemide 0 Yes [...] dose [place] mg 00 on Mon [facility] 02/09/22 at Branch 2315, Until Discontinu [...] dose Med ical 12.[address] [facility] 02/09/22 at 2315, Until Discontinu ed, Routine tamsulosin 2021-0 Yes .4mg 0.4 mg, Univ ers (FLOMAX) 02-10 Oral, ity of capsule 0.4 04:15: DAILY, [place] mg 00 First dose Medical on [facility] Branch 02/09/22 at 2315, Until Discontinu ed, Routine gabapentin 2021-0 Yes 300mg 300 mg, Uni vers (NEURONTIN) 02-10 Oral, BID, it y of capsule 300 04:15: First dose [place] mg 00 on Mon [facility] 02/09/22 at Branch 2315, Until Discontinu ed, Routine sennosides 2021-0 Yes 8.6mg 8.6 mg, Uni vers (SENOKOT) 02-10 Oral, BID, ity of tablet 8.6 04:15: First dose [place] mg 00 on Mon [facility] 02/09/22 at Branch 2315, Until Discontinu ed, Routine docusate 2021-0 Yes 100mg 100 mg, Unive rs (COLACE) 02-10 Oral, BID, ity o f capsule 100 04:15: First dose [place] mg 00 on Mon [facility] 02/09/22 at Branch 2315, Until Discontinu [...] IV ity of (D50W) 04:01: Push, PRN, [place] injection 56 Starting Medica l 25 mL on Wed Branch 02/09/22 at 2301, Until Discontinu ed, PIERRE, Blood Glucose < or = 70 mg/dL and patient is unable to swallow or has mental status changes. atorvastati 2021- No [id number] 40mg Take 1 Univers n 40 mg - 10-23 tablet by ity of tablet 00:00: 04:59 mouth at [place] 00 :00 bedtime Medical for 30 Branch days. metoprolol 2021- No [id number] 12.5mg Take 0.5 Univers succinate 9- 10-23 tablets by ity of XL 25 mg 24 00:00: 04:59 mouth in [place] hr tablet 00 :00 the Medical morning Branch for 30 days. atorvastati 2021- No [id number] 40mg Take 1 Univers n 40 mg -22 10-23 tablet by ity of tablet 00:00: 04:59 mouth at [place] 00 :00 bedtime Medical for 30 Branch days. metoprolol 2021- No [id number] 12.5mg Take 0.5 Univers succinate 02-1023 tablets [...] at 0215, 1 mL gabapentin 2021- No [id number] 300mg Take 1 Univers 300 mg 11-05 capsule by ity of capsule 00:00: 04:59 mouth 3 [place] 00 :00 (three) Medical times Branch daily for 10 days. gabapentin 2021- No [id number] 300mg Take 1 Univers 300 mg 11-05 capsule by ity of capsule 00:00: 04:59 mouth 3 [place] 00 :00 (three) Medical times Branch daily for 10 days. aspirin 81 2021- No [id number] 81mg Take 1 Univers mg chewable 6-16 07-17 tablet by it y of tablet 00:00: 04:59 mouth [place] 00 :00 daily for Medical 30 days. [place] aspirin 81 2021- No [id number] 81mg Take 1 Univers mg chewable 6-16 07-17 tablet by it y of tablet 00:00: 04:59 mouth [place] 00 :00 daily for Medical 30 days. Branch aspirin 81 2021- No [id number] 81mg Take 1 Univers mg chewable 6-16 07-17 tablet by it y of tablet 00:00: 04:59 mouth [place] 00 :00 daily for Medical 30 days. [place] proMETHazin Yes [id number] 25mg Take 1 Univers e 25 mg 6-03 tablet by ity of tablet 00:00: mouth [place] 00 every 6 Medical (six) Branch hours as needed for Nausea and Vomiting (N/V). proMETHazin Yes [id number] 25mg Take 1 Univers e 25 mg 6-03 tablet by ity of tablet 00:00: mouth [place] 00 every 6 Medical (six) Branch hours as needed for Nausea and Vomiting (N/V). proMETHazin 2021-0 Yes [id number] 25mg Take 1 Univers e 25 mg 6-03 tablet by ity of tablet 00:00: mouth [place] 00 every 6 Medical (six) Branch hours as needed for Nausea and Vomiting (N/V). proMETHazin 2021-0 Yes [id number] 25mg Take 1 Univers e 25 mg 6-03 tablet by ity of tablet 00:00: mouth [place] 00 every 6 Medical (six) Branch hours as needed for Nausea and Vomiting (N/V). proMETHazin 2021-0 Yes [id number] 25mg Take 1 Univers e 25 mg 6-03 tablet by ity of tablet 00:00: mouth [place] 00 every 6 Medical (six) Branch hours as needed for Nausea and Vomiting (N/V). proMETHazin 2021-0 Yes [id number] 25mg Take 1 Univers e 25 mg 6-03 tablet by ity of tablet 00:00: mouth [place] 00 every 6 Medical (six) Branch hours as needed for Nausea and Vomiting (N/V). fenofibrate 2021- No [id number] 134mg Take 1 Univers micronized -19 12- capsule by it y of 134 mg 00:00: 04:59 mouth [place] capsule 00 :00 daily for Medical 30 days. Branch lisinopriL 2021- No [id number] 2.5mg Take 1 Univers 2.5 mg -19 12- tablet by ity of tablet 00:00: 04:59 mouth [place] 00 :00 daily for Medical 30 days. Branch fenofibrate 2021- No [id number] 134mg Take 1 Univers micronized 5-19 12- capsule by it y of 134 mg 00:00: 04:59 mouth [place] capsule 00 :00 daily for Medical 30 days. Branch lisinopriL 2021- No [id number] 2.5mg Take 1 Univers 2.5 mg 5-19 12- tablet by ity of tablet 00:00: 04:59 mouth [place] 00 :00 daily for Medical 30 days. Branch fenofibrate 2021-2021- No [id number] 134mg Take 1 Univers micronized -19 12- capsule by it y of 134 mg 00:00: 04:59 mouth [place] capsule 00 :00 daily for Medical 30 days. Branch lisinopriL 2021- No [id number] 2.5mg Take 1 Univers 2.5 mg -31 - tablet by ity of tablet 00:00: 04:59 mouth [place] 00 :00 daily for Medical 30 days. Branch furosemide 2021- No [id number] 40mg Take 1 Univers 40 mg 5-30 [...] s: atrial fibrillati on calcitrioL 2021- No [id number] .5ug Take 1 Univers 0.5 mcg -30 -30 capsule by ity o f capsule 00:00: 04:59 mouth [place] 00 :00 daily for Medical 30 days. [place] insulin NPH 2021- No [id number] 5U inject 5 Univers (HUMULIN N 5-30 06-30 Units ity of NPH U-100 00:00: 04:59 under the [place] INSULIN) 00 :00 skin every Medic al 100 unit/mL evening Branc h injection for 30 days. atorvastati 2021- No [id number] 40mg Take 1 Univers n 40 mg 5-30 -30 tablet by ity of tablet 00:00: 04:59 mouth at [place] 00 :00 bedtime Medical for 30 Branch days. carvediloL 2021- No [id number] 3.125mg Take 1 Univers 3.125 mg 5-30 06-30 tablet by ity o f tablet 00:00: 04:59 mouth 2 [place] 00 :00 (two) Medical times Branch daily with meals for 30 days. furosemide 2021- No [id number] 40mg Take 1 Univers 40 mg 5-30 [...] s: atrial fibrillati on calcitrioL 2021- No [id number] .5ug Take 1 Univers 0.5 mcg 5-30 06-30 capsule by ity o f capsule 00:00: 04:59 mouth [place] 00 :00 daily for Medical 30 days. Branch insulin NPH 2021- No [id number] 5U inject 5 Univers (HUMULIN N 5-30 06-30 Units ity of NPH U-100 00:00: 04:59 under the [place] INSULIN) 00 :00 skin every Medic al 100 unit/mL evening Branc h injection for 30 days. atorvastati 2021- No [id number] 40mg Take 1 Univers n 40 mg 5-30 06-30 tablet by ity of tablet 00:00: 04:59 mouth at [place] 00 :00 bedtime Medical for 30 Branch days. carvediloL 2021- No [id number] 3.125mg Take 1 Univers 3.125 mg 5-30 06-30 tablet by ity o f tablet 00:00: 04:59 mouth 2 [place] 00 :00 (two) Medical times Branch daily with meals for 30 days. furosemide 2021- No [id number] 40mg Take 1 Univers 40 mg 5-30 [...] s: atrial fibrillati on calcitrioL 2021- No [id number] .5ug Take 1 Univers 0.5 mcg 5-30 06-30 capsule by ity o f capsule 00:00: 04:59 mouth [place] 00 :00 daily for Medical 30 days. Branch insulin NPH 2021- No [id number] 5U inject 5 Univers (HUMULIN N 5-30 06-30 Units ity of NPH U-100 00:00: 04:59 under the [place] INSULIN) 00 :00 skin every Medic al 100 unit/mL evening Branc h injection for 30 days. atorvastati 2021- No [id number] 40mg Take 1 Univers n 40 mg 5-30 06-30 tablet by ity of tablet 00:00: 04:59 mouth at [place] 00 :00 bedtime Medical for 30 Branch days. carvediloL 2021- No [id number] 3.125mg Take 1 Univers 3.125 mg 5-30 -30 tablet by ity o f tablet 00:00: 04:59 mouth 2 [place] 00 :00 (two) Medical times Branch daily with meals for 30 days. metFORMIN Yes [id number] 500mg Take 1 U nivers 500 mg 3-02 tablet by ity of tablet 00:00: mouth [address] [place] [address] ([facility]) Medical times Branch daily with meals. metFORMIN Yes [id number] 500mg Take 1 U nivers 500 mg 3-02 tablet by ity of tablet 00:00: mouth [place] ([facility]) Medical times Branch daily with meals. metFORMIN Yes [id number] 500mg Take 1 U nivers 500 mg 3-02 tablet by ity of tablet 00:00: mouth [place] ([facility]) Medical times Branch daily with meals. metFORMIN Yes [id number] 500mg Take 1 U nivers 500 mg 3-02 tablet by ity of tablet 00:00: mouth [place] ([facility]) Medical times Branch daily with meals. metFORMIN Yes [id number] 500mg Take 1 U nivers 500 mg 3-02 tablet by ity of tablet 00:00: mouth [place] ([facility]) Medical times Branch daily with meals. metFORMIN Yes [id number] 500mg Take 1 U nivers 500 mg 3-02 tablet by ity of tablet 00:00: mouth 2 [place] ([facility]) Medical times Branch daily with meals. albuterol Yes [id number] 2{puff} Inhale 2 Univers 90 2-21 Puffs 2 ity of mcg/actuati 00:00: (two) [place] on inhaler 00 times Medical daily. Branch collagenase Yes [id number] Use as Univers 250 2-21 directed ity of unit/gram 00:00: by office Juan J as ointment 00 Medical Branch cyclobenzap Yes [id number] 10mg Take 1 Univers rine 10 mg 2-21 tablet by ity of tablet 00:00: mouth 2 [place] 00 (two) Medical times Branch daily as needed for Muscle Spasms. dextrometho Yes [id number] 10mL Take 10 mL Univers rphan-guaif 2-21 [...] for Pain (scale 4-6). melatonin 3 Yes [id number] 3mg Take 1 Univers mg tablet 2-21 tablet by ity o f 00:00: mouth at [place] 00 bedtime. Medical Branch ondansetron Yes [id number] 4mg Take 1 Univers 4 mg 2-21 tablet by ity of disintegrat 00:00: mouth [place] ing tablet 00 every 8 Medica l (eight) Branch hours as needed for Nausea and Vomiting (N/V). albuterol Yes [id number] 2{puff} Inhale 2 Univers 90 2-21 Puffs 2 ity of mcg/actuati 00:00: (two) [place] on inhaler 00 times Medical daily. Branch collagenase Yes [id number] Use as Univers 250 2-21 directed ity of unit/gram 00:00: by office [place] J as ointment 00 Medical Branch cyclobenzap Yes [id number] 10mg Take 1 Univers rine 10 mg 2-21 tablet by ity of tablet 00:00: mouth 2 [place] 00 (two) Medical times Branch daily as needed for Muscle Spasms. dextrometho Yes [id number] 10mL Take 10 mL Univers rphan-guaif 2-21 [...] for Pain (scale 4-6). melatonin 3 Yes [id number] 3mg Take 1 Univers mg tablet 2-21 tablet by ity o f 00:00: mouth at [place] 00 bedtime. Medical Branch ondansetron Yes [id number] 4mg Take 1 Univers 4 mg 2-21 tablet by ity of disintegrat 00:00: mouth [place] ing tablet 00 every 8 Medica l (eight) Branch hours as needed for Nausea and Vomiting (N/V). albuterol Yes [id number] 2{puff} Inhale 2 Univers 90 2-21 Puffs 2 ity of mcg/actuati 00:00: (two) [place] on inhaler 00 times Medical daily. Branch collagenase Yes [id number] Use as Univers 250 2-21 directed ity of unit/gram 00:00: by office [place] J as ointment 00 Medical Branch cyclobenzap Yes [id number] 10mg Take 1 Univers rine 10 mg 2-21 tablet by ity of tablet 00:00: mouth 2 [place] 00 (two) Medical times Branch daily as needed for Muscle Spasms. dextrometho Yes [id number] 10mL Take 10 mL Univers rphan-guaif 2-21 [...] for Pain (scale 4-6). melatonin 3 Yes [id number] 3mg Take 1 Univers mg tablet 2-21 tablet by ity o f 00:00: mouth at [place] 00 bedtime. Medical Branch ondansetron 2022-0 Yes [id number] 4mg Take 1 Univers 4 mg 2-21 tablet by ity of disintegrat 00:00: mouth [place] ing tablet 00 every 8 Medica l (eight) Branch hours as needed for Nausea and Vomiting (N/V). albuterol Yes [id number] 2{puff} Inhale 2 Univers 90 2-21 Puffs 2 ity of mcg/actuati 00:00: (two) [place] on inhaler 00 times Medical daily. Branch collagenase Yes [id number] Use as Univers 250 2-21 directed ity of unit/gram 00:00: by office [place] J as ointment 00 Medical Branch cyclobenzap Yes [id number] 10mg Take 1 Univers rine 10 mg 2-21 tablet by ity of tablet 00:00: mouth 2 [place] 00 (two) Medical times Branch daily as needed for Muscle Spasms. melatonin 3 Yes [id number] 3mg Take 1 Univers mg tablet 2-21 tablet by ity o f 00:00: mouth at [place] 00 bedtime. Medical Branch ondansetron Yes [id number] 4mg Take 1 Univers 4 mg 2-21 tablet by ity of disintegrat 00:00: mouth [place] ing tablet 00 every 8 Medica l (eight) Branch hours as needed for Nausea and Vomiting (N/V). albuterol Yes [id number] 2{puff} Inhale 2 Univers 90 2-21 Puffs 2 ity of mcg/actuati 00:00: (two) [place] on inhaler 00 times Medical daily. Branch collagenase Yes [id number] Use as Univers 250 2-21 directed ity of unit/gram 00:00: by office [place] J as ointment 00 Medical Branch cyclobenzap Yes [id number] 10mg Take 1 Univers rine 10 mg 2-21 tablet by ity of tablet 00:00: mouth 2 [place] 00 (two) Medical times Branch daily as needed for Muscle Spasms. melatonin 3 Yes [id number] 3mg Take 1 Univers mg tablet 2-21 tablet by ity o f 00:00: mouth at [place] 00 bedtime. Medical Branch ondansetron 0 Yes [id number] 4mg Take 1 Univers 4 mg 2-21 tablet by ity of disintegrat 00:00: mouth [place] ing tablet 00 every 8 Medica l (eight) Branch hours as needed for Nausea and Vomiting (N/V). albuterol Yes [id number] 2{puff} Inhale 2 Univers 90 2-21 Puffs 2 ity of mcg/actuati 00:00: (two) [place] on inhaler 00 times Medical daily. Branch collagenase Yes [id number] Use as Univers 250 2-21 directed ity of unit/gram 00:00: by office Juan J as ointment 00 Medical Branch cyclobenzap Yes [id number] 10mg Take 1 Univers rine 10 mg 2-21 tablet by ity of tablet 00:00: mouth 2 [place] 00 (two) Medical times Branch daily as needed for Muscle Spasms. melatonin 3 Yes [id number] 3mg Take 1 Univers mg tablet 2-21 tablet by ity o f 00:00: mouth at [place] 00 bedtime. Medical Branch ondansetron Yes [id number] 4mg Take 1 Univers 4 mg 2-21 tablet by ity of disintegrat 00:00: mouth [place] ing tablet 00 every 8 Medica l (eight) Branch hours as needed for Nausea and Vomiting (N/V). dextrometho 2021- No [id number] 10mL Take 10 mL Univers rphan-guaif 07-12 [...] Brooke Frankel 00:00: 00:00 Patient 00 :00 [facility] Diflunisal Diflunisal 2015- No Todd Wynn [address] [facility] (Dolobid) (Dolobid) 01-17 [facility] 500 Mg 500 Mg 00:00: 00:00 Patient Tablet, 500 Tablet, 500 00 :00 M edical Mg Oral Mg Oral Center Ondansetron Ondansetron 2016- No Todd Wynn [address] [facility] Hcl Hcl 01-17 [place] as Luke s (Zofran*) 4 (Zofran*) 4 00:00: 00:00 needed for Patient Mg Tablet, Mg Tablet, 00 :00 Nausea M edical 4 Mg 4 Mg Center Sublingual Sublingual Clopidogrel Clopidogrel Yes [address] [facility] Bisulfate Bisulfate [facility] (Plavix) 75 (Plavix) 75 P atient Mg Tablet Mg Tablet Medic al Center Cyclobenzap Cyclobenzap Yes [address] [facility] rine Hcl rine Hcl Times A Luke s (Flexeril) (Flexeril) Day as P atient 5 Mg Tablet 5 Mg Tablet needed for Medical Muscle Center Spasms Doxazosin Doxazosin Yes [address] [facility] Mesylate Mesylate [facility] (Cardura) 8 (Cardura) 8 P [...] Tablet Mg Tablet Day [facility] Patient Medical [place] Hydrocodone Hydrocodone Yes [address] [facility] Bit/Acetami Bit/Acetami Hours as [facility] nophen nophen needed for Patie nt (Pride (Pride Pain Medical 10-325 10-325 Center Tablet) 1 [...] Mg Tablet Mg Tablet Patie nt Medical [place] Nitroglycer Nitroglycer Yes As Needed [facility] in in [facility] (Nitrostat) (Nitrostat) P atient 0.4 Mg 0.4 Mg Medical Tab.subl Tab.subl Center Omeprazole Omeprazole Yes [address] 20 Mg 20 Mg [facility] Capsule.dr Lind. [facility] Simvastatin Simvastatin Yes [address] [facility] 80 Mg 80 Mg [facility] Tablet Tablet Patient [facility] Tamsulosin Tamsulosin Yes Daily [facility] [...] Hcl 75 Mg [facility] Tab Tab Patient [facility] Albuterol Albuterol 2017- No 1 Twice A [...] 06-17 [facility] Capsule., Capsule., 00:00 Patient :00 [facility] Center Insulin Insulin 90 Twice A [...] Mg Oral 25 Mg Oral :00 [facility] Albuterol Albuterol As Needed [facility] Sulfate Sulfate 11-23 as needed Esme es (Ventolin (Ventolin 00:00 for Manjula ent Hfa) 18 Gm Hfa) 18 Gm :00 [facility] Hfa.aer.ad, Hfa.aer.ad, Of Breath Center 90 Mcg 90 Mcg Inhalation Inhalation Dicyclomine Dicyclomine Twice A [facility] Hcl 10 Mg Hcl 10 Mg 11-23 Day Luke s Capsule, 10 Capsule, 10 00:00 Patient Mg Oral Mg Oral :00 [facility] Methocarbam Methocarbam [address] ol [...] 600 Mg Oral :00 M [facility] Pregabalin Pregabalin 2013- No 150 Twice [...] Immunizations Ordered Filled Immunization Date Status Comments [facility] e Immunization Name Name Influenza Virus 2021-01-16 Completed Universit y of Vaccine 00:00:00 [facility] Influenza Virus 2021-01-16 Completed Universit y of Vaccine 00:00:00 [facility] Influenza Virus 2021-01-16 Completed Universit y of Vaccine 00:00:00 [facility] Influenza Virus 2021-01-16 Completed Universit y of Vaccine 00:00:00 [facility] Influenza Virus 2021-01-16 Completed Universit y of Vaccine 00:00:00 [facility] Influenza Virus 2021-01-16 Completed Universit y of Vaccine 00:00:00 [facility] SARS-COV-2 COVID-19 2020-10-16 Completed Unive rsity of PEDRO/J&J VACCINE 00:00:00 [facility] SARS-COV-2 COVID-19 2020-10-16 Completed Unive rsity of PEDRO/J&J VACCINE 00:00:00 [facility] SARS-COV-2 COVID-19 2020-10-16 Completed Unive rsity of PEDRO/J&J VACCINE 00:00:00 [facility] SARS-COV-2 COVID-19 2020-10-16 Completed Unive rsity of PEDRO/J&J VACCINE 00:00:00 [facility] SARS-COV-2 COVID-19 2020-10-16 Completed Unive rsity of PEDRO/J&J VACCINE 00:00:00 [facility] SARS-COV-2 COVID-19 2020-10-16 Completed Unive rsity of PEDRO/J&J VACCINE 00:00:00 [facility] Influenza Virus 2020-01-21 Completed Universit y of Vaccine 00:00:00 [facility] Influenza Virus 2020-01-21 Completed Universit y of Vaccine 00:00:00 [facility] Influenza Virus 2020-01-21 Completed Universit y of Vaccine 00:00:00 [facility] Influenza Virus 2020-01-21 Completed Universit y of Vaccine 00:00:00 [facility] Influenza Virus 2020-01-21 Completed Universit y of Vaccine 00:00:00 [facility] Influenza Virus 2020-01-21 Completed Universit y of Vaccine 00:00:00 [facility] Zoster Vaccine 2019-07-17 Completed University of Recombinant 00:00:00 [facility] Zoster Vaccine 2019-07-17 Completed University of Recombinant 00:00:00 [facility] Zoster Vaccine 2019-07-17 Completed University of Recombinant 00:00:00 [facility] Zoster Vaccine 2019-07-17 Completed University of Recombinant 00:00:00 [facility] Zoster Vaccine 2019-07-17 Completed University of Recombinant 00:00:00 [facility] Zoster Vaccine 2019-07-17 Completed University of Recombinant 00:00:00 [facility] Td 2019-03-29 Completed University of 00:00:00 [facility] Td 2019-03-29 Completed University of 00:00:00 [facility] Td 2019-03-29 Completed University of 00:00:00 [facility] Td 2019-03-29 Completed University of 00:00:00 [facility] Td 2019-03-29 Completed University of 00:00:00 [facility] Td 2019-03-29 Completed University of 00:00:00 [facility] Influenza Virus 2018-02-18 Completed Universit y of Vaccine 00:00:00 [facility] Pneumococcal 2018-02-18 Completed University o f Polysaccharide, 00:00:00 [place] Med ical PPSV23 (PNEUMOVAX) [place] Influenza Virus 2018-02-18 Completed Universit y of Vaccine 00:00:00 [facility] Pneumococcal 2018-02-18 Completed University o f Polysaccharide, 00:00:00 [place] [facility] ical PPSV23 (PNEUMOVAX) [place] Influenza Virus 2018-02-18 Completed Universit y of Vaccine 00:00:00 [facility] Pneumococcal 2018-02-18 Completed University o f Polysaccharide, 00:00:00 [place] Med ical PPSV23 (PNEUMOVAX) Branch Influenza Virus 2018-02-18 Completed Universit y of Vaccine 00:00:00 [facility] Pneumococcal 2018-02-18 Completed University o f Polysaccharide, 00:00:00 [place] ical PPSV23 (PNEUMOVAX) Branch Influenza Virus 2018-02-18 Completed Universit y of Vaccine 00:00:00 [facility] Pneumococcal 2018-02-18 Completed University o f Polysaccharide, 00:00:00 [place] ical PPSV23 (PNEUMOVAX) Branch Influenza Virus 2018-02-18 Completed Universit y of Vaccine 00:00:00 [facility] Pneumococcal 2018-02-18 Completed University o f Polysaccharide, 00:00:00 [place] [facility] ical PPSV23 (PNEUMOVAX) Branch Influenza Virus 2008-03-19 Completed Universit y of Vaccine 00:00:00 [facility] Pneumococcal 2008-03-19 Completed University o f Polysaccharide, 00:00:00 [place] [facility] ical PPSV23 (PNEUMOVAX) Branch Influenza Virus 2008-03-19 Completed Universit y of Vaccine 00:00:00 [facility] Pneumococcal 2008-03-19 Completed University o f Polysaccharide, 00:00:00 [place] [facility] ical PPSV23 (PNEUMOVAX) Branch Influenza Virus 2008-03-19 Completed Universit y of Vaccine 00:00:00 [facility] Pneumococcal 2008-03-19 Completed University o f Polysaccharide, 00:00:00 [facility] ical PPSV23 (PNEUMOVAX) Branch Influenza Virus 2008-03-19 Completed Universit y of Vaccine 00:00:00 [facility] Pneumococcal 2008-03-19 Completed University o f Polysaccharide, 00:00:00 [place] ical PPSV23 (PNEUMOVAX) Branch Influenza Virus 2008-03-19 Completed Universit y of Vaccine 00:00:00 [facility] Pneumococcal 2008-03-19 Completed University o f Polysaccharide, 00:00:00 [place] ical PPSV23 (PNEUMOVAX) Branch Influenza Virus 2008-03-19 Completed Universit y of Vaccine 00:00:00 [facility] Pneumococcal 2008-03-19 Completed University o f Polysaccharide, 00:00:00 [place] ical PPSV23 (PNEUMOVAX) [place] Vital Signs Vital Name Observation Time Observation Value Comments Source Systolic blood 2022-02-10 105 mm[Hg] University of pressure 16:35:00 [facility] Branch Diastolic blood 2022-02-10 57 mm[Hg] University o f pressure 16:35:00 [facility] Branch Heart rate 2022-02-10 65 /min University of 16:35:00 [facility] Body temperature 2022-02-10 36.22 Sandy University of 16:35:00 [place] [facility] Branch Respiratory rate 2022-02-10 18 /min University of 16:35:00 [facility] Oxygen saturation 2022-02-10 98 /min University of in Arterial blood 16:35:00 [place] Medi uriel by Pulse oximetry Branch Body weight 2022-02-10 74.98 kg University of 08:16:00 [facility] BMI 2022-02-10 25.89 kg/m2 University of 08:16:00 [facility] Body height 2022-02-10 170.2 cm Height before University of 01:18:00 Bilat BKA [facility] Systolic blood 2021-11-09 124 mm[Hg] University of pressure 23:00:00 [facility] Diastolic blood 2021-11-09 69 mm[Hg] University o f pressure 23:00:00 [facility] Branch Heart rate 2021-11-09 72 /min University of 23:00:00 [facility] Respiratory rate 2021-11-09 25 /min University of 23:00:00 [facility] Oxygen saturation 2021-11-09 98 /min University of in Arterial blood 23:00:00 [facility] uriel by Pulse oximetry Branch Body temperature 2021-11-09 37.22 Sandy University of 20:28:39 [facility] Body height 2021-11-09 170.2 cm University of 20:16:00 [facility] Body weight 2021-11-09 71.215 kg University of 20:16:00 [facility] BMI 2021-11-09 24.59 kg/m2 University of 20:16:00 [facility] Systolic blood 2021-11-05 134 mm[Hg] University of pressure 10:00:00 [facility] Branch Diastolic blood 2021-11-05 78 mm[Hg] University o f pressure 10:00:00 [facility] Heart rate 2021-11-05 81 /min University of 10:00:00 [facility] Body temperature 2021-11-05 36.28 [place] University of 08:10:00 [place] [facility] Respiratory rate 2021-11-05 18 /min [facility] 08:00:00 [facility] Oxygen saturation 2021-11-05 99 /min [facility] Arterial blood 08:00:00 [facility] by Pulse oximetry [place] Body height 2021-11-05 170.2 cm [facility] 05:48:00 [facility] Body weight 2021-11-05 71.215 kg [facility] 05:48:00 [facility] BMI 2021-11-05 24.59 kg/m2 [facility] 05:48:00 [facility] Procedures Procedure Date / Time Performing Clinician Source Performed INSURANCE CORRESPONDENCE 2022-04-19 06:01:00 Doctor Unassigned, [facility] [place] Medical [place] TRANSTHORACIC ECHO (TTE) 2022-02-10 13:16:00 Martha Rowe [facility] COMPLETE W/ CONTRAST Medical Bra nch PHOSPHORUS 2022-02-10 10:22:00 Martha Rowe [facility] MAGNESIUM 2022-02-10 10:22:00 Martha Rowe [facility] TROPONIN I 2022-02-10 10:22:00 Martha Rowe [facility] COMP. METABOLIC PANEL 2022-02-10 10:22:00 Martha Rowe [facility] ([id number]) [facility] CBC WITH DIFF 2022-02-10 10:22:00 Martha Rowe [facility] CREATINE KINASE 2022-02-10 04:37:00 Martha Rowe [facility] URIC ACID 2022-02-10 04:37:00 Martha Rowe [facility] FERRITIN SERUM 2022-02-10 04:37:00 Martha Rowe [facility] FOLATE 2022-02-10 04:37:00 Martha Rowe [facility] TROPONIN I 2022-02-10 04:37:00 Martha Rowe [facility] THYROID STIMULATING 2022-02-10 04:37:00 Martha Rowe [facility] HORMONE Medical Branch LIPID PANEL ([id number])(TOTAL 2022-02-10 04:37:00 [facility] Medical Branch TRIGLYCERIDES, HDL) IRON PANEL 2022-02-10 04:37:00 Martha Rowe [facility] GLYCOSYLATED HEMOGLOBIN 2022-02-10 04:37:00 Martha Rowe [facility] (A1C) [facility] N-TERMINAL PRO-BNP 2022-02-10 04:37:00 Jae daisy [facility] VITAMIN D, 25-OH 2022-02-10 04:37:00 Jae daisy [facility] COVID-19 (ID NOW RAPID 2022-02-10 04:37:00 Martha Rowe [facility] TESTING) [facility] B-TYPE NATRIURETIC FACTOR 2022-01-30 18:10:00 CH I [facility] (BNP) Center XR CHEST 1 VW 2021-11-09 21:07:00 Troy Ku Mckenzie [facility] POCT GLUCOSE (AUTOMATED) 2021-11-09 20:25:00 Troy Ku [facility] MAGNESIUM 2021-11-09 20:19:00 Troy Ku [facility] TROPONIN I 2021-11-09 20:19:00 Troy Ku [facility] COMP. METABOLIC PANEL 2021-11-09 20:19:00 Troy Ku [facility] ([id number]) [facility] Branch CBC WITH DIFF 2021-11-09 20:19:00 Troy Ku [facility] N-TERMINAL PRO-BNP 2021-11-09 20:19:00 Troy Ku [facility] XR CHEST 1 VW 2021-11-05 06:38:35 Mihaela Martin [facility] [id number] 2020-08-11 00:00:00 ALDMO [facility] [id number] 2020-08-11 00:00:00 ALDMO [facility] [id number] 2020-08-11 00:00:00 ALDMO [facility] [id number] 2020-08-11 00:00:00 ALDMO [facility] Computed tomography 2017-10-24 00:00:00 BROOKE ALEXIS LUCY [...] Clinicians Facility Department ID 2021-06-17 Outpatient [id number] ENCKY MALDONADO [id number] [facility] 10:24:03 [id number] [facility] 2021-06-17 Outpatient 3 [id number] ENCKY REF [id number] [facility] 10:22:04 [id number] [facility] [place] 2021-03-22 Emergency [facility] [id number] Univers 15:25:20 ity of [facility] 2021-03-22 Emergency [facility] [id number] Univers 10:56:41 ity of [facility] 2021-03-21 Emergency [facility] [id number] Univers 18:15:08 ity of [facility] 2021-03-21 Emergency [facility] [id number] Univers 17:18:22 ity of [facility] 2021-03-21 Emergency [facility] [id number] Univers 12:58:19 ity of [facility] 2021-03-21 Emergency [facility] [id number] Univers 04:06:22 ity of [facility] 2021-03-21 Emergency [facility] [id number] Univers 00:12:27 ity of [facility] 2021-03-20 Emergency [facility] [id number] Univers 00:55:44 ity of [facility] 2021-03-19 Emergency [facility] [id number] Univers 17:28:47 ity of [facility] 2021-03-19 Emergency [facility] [id number] Univers 03:16:03 ity of [facility] 2021-03-18 Emergency [facility] [id number] Univers 13:56:50 ity of [facility] 2020-08-23 Inpatient HCACL FERNANDO [id number] [facility] 17:41:00 84 [facility] 2020-04-04 Inpatient Marko, HCAMN HCAMN [id number] [facility] 14:40:00 Edward 33 [facility] 2019-10-15 Inpatient RADHA Shah, HCAPM ENDO [id number] [facility] 15:30:00 Finn [id number] [facility] 2022-04-19 2022-04-19 Orders Doctor JOSE [id number] Univers 00:00:00 00:00:00 Only Unassigned, [place] [id number] ity of [place] [facility] [id number] Juan J as [phone] [facility] 009 Branch 2022-02-11 2022-02-11 Transition LATRICE Harding [id number] Univers 00:00:00 00:00:00 of Care Josselyntoni DUQUE [id number] it y of [id number] [id number] [facility] 403 Branch 2022-02-09 2022-02-10 Outpatient U JAE [facility] [id number] Univers 19:53:00 13:45:00 MARTHA ity of [facility] 2022-02-09 2022-02-10 Hospital Ana Maria Meza [facility] [id number] Univers 19:53:00 13:45:00 Encounter Martha Rowe [id number] ity of [id number] [place] [id number] [facility] 081 Branch 2022-01-30 2022-01-30 [facility] [id number] 00:00:00 00:00:00 Requisitio Esme [facility] 2022-01-30 2022-01-[address] [facility] [id number] 00:00:00 00:00:00 Requisitio Esme [facility] 2021-11-09 2021-11-09 Emergency X KINGS, K [facility] ERT [id number] Univers 15:15:00 18:32:00 ity of [facility] 2021-11-09 2021-11-09 Emergency Kings, K [facility] [id number] Univers 15:15:00 18:32:00 Mckenzie PEREZ [id number] i ty of [facility] [id number] [facility] [id number] [facility] 084 Branch 2021-11-05 2021-11-05 Emergency X VERONICA [facility] ERT [id number] Univers 00:44:00 06:53:00 MIHAELA singhy of [facility] 2021-11-05 2021-11-[address] [facility] [id number] Univers 00:44:00 06:53:00 Mihaela PEREZ [id number] ity of [facility] [id number] [facility] [id number] [facility] 084 Branch 2021-11-04 2021-11-04 Transition LATRICE Feliciano [id number] Univers 00:00:00 00:00:00 of Care Micaela [place] [id number] it y of [place] [id number] [place] [id number] [facility] 403 Branch 2021-11-02 2021-11-03 Emergency Curtis Xavier [facility] 1.2.840. 114 [id number] Univers 22:35:00 15:46:00 Oc Bryson [id number] ity of [facility] [id number] [place] [id number] [facility] 081 Branch 2021-11-02 2021-11-[address] [facility] [id number] Univers 22:35:00 15:46:00 OC vashti [facility] 2021-11-02 2021-11-03 Outpatient X B[facility]DON [facility] [id number] Univers 22:35:00 15:46:00 OC baugh [facility] 2021-11-01 2021-11-01 Transition LATRICE Feliciano [id number] Univers 00:00:00 00:00:00 of Care Micaela [place] [id number] it y of [id number] [id number] [facility] 403 Branch 2021-10-27 2021-10-[address] [facility] [id number] Univers 17:41:00 14:03:00 ANA MARIA vashti [facility] 2021-10-27 2021-10-29 Emergency Jameson Mejia [facility] 1.2.840. 114 [id number] Univers 17:41:00 14:03:00 Lizett Gerardo [id number] ity of [place] [id number] [facility] [id number] [facility] 081 [place] 2021-10-27 2021-10-[address] [facility] [id number] Univers 17:41:00 14:03:00 ANA MARIA vashti [facility] 2021-10-21 2021-10-22 [facility] [id number] Univers 20:24:00 04:18:00 JYOTI [facility] 2021-10-21 2021-10-22 [facility] [id number] Univers 20:24:00 04:18:00 Jyoti PEREZ [id number] i ty umu [place] [id number] [facility] [id number] [facility] 084 Branch 2021-10-20 2021-10-20 Transition LATRICE Aleman 1.2.840.114 [id number] Univers 00:00:00 00:00:00 of Care Rico A [place] [id number] [place]y [id number] [id number] [facility] 403 Branch 2021-10-15 2021-10-18 Outpatient X DERRICK [facility] [id number] Univers 16:42:00 13:52:00 ANA MARIA itvashti [facility] 2021-10-15 2021-10-18 Emergency Jameson Mejia [facility] 1.2.840. 114 [id number] Univers 16:42:00 13:52:00 Ana Maria Meza [id number] ity of [id number] [place] [facility] [id number] [facility] 081 Branch 2021-07-23 2021-07-23 Transition LATRICE Farooq 1.2.840.114 [id number] Univers 00:00:00 00:00:00 of Care Marcella [place] [id number] i ty [id number] [id number] [address] 2021-07-19 2021-07-22 [facility]patient [facility] [id number] Univers 09:10:00 17:00:00 GEOFFREY baugh [facility] 2021-07-19 2021-07-22 [facility] Brandyn Dumont [facility] 1.2.840.1 [id number] Univers 09:10:00 17:00:00 Encounter Geoffrey Hill [facility] [id number] ity of [id number] [id number] [facility] 109 Branch ([facility] 2021-07-21 2021-07-21 Outpatient Wong_H VFP VFP [id number] Village 06:58:00 06:58:00 [id number] Family Practic e 2021-07-13 2021-07-13 Transition LATRICE Aleman 1.2.840.114 [id number] Univers 00:00:00 00:00:00 of Care Rico [place] [id number] [id number] [id number] [address] 2021-06-28 2021-07-12 Inpatient X ANGEL [facility] [id number] Univers 10:43:00 18:25:00 AMBIKA vashti [facility] 2021-06-28 2021-07-12 [facility] Jameson Mejia [facility] 1.2.840.1 [id number] Univers 10:43:00 18:25:00 Encounter Troy Ku [id number] ity of Ambika Fernandez [place] [id number] [facility] [id number] [facility] 081 Branch 2021-02-15 2021-02-15 Outpatient R DONALDO, [facility] [id number] Univers 15:00:00 15:00:00 ALECIA [facility] 2021-01-11 2021-01-11 [facility] [id number] Univers 10:45:00 10:45:00 GINA baugh o f [facility] 2021-01-05 2021-01-05 Transition Latrice Aleman 1.2.840.114 [id number] Univers 00:00:00 00:00:00 of Care Rico Duque 350.1.13.10 it[place] of [place] [phone] [facility] 403 Branch 2021-01-01 2021-01-04 [facility] Wayne Can [facility] 1.2.840.1 14 [id number] Univers 14:18:00 18:10:00 Encounter Lizett Gerardo 350.1.13.10 ity of [place] [phone] [facility] 081 Branch 2021-01-01 2021-01-01 Orders Doctor JOSE 1.2.840.114 [id number] Univers 00:00:00 00:00:00 Only Unassigned, [place] 350.1.13.10 ity of [place] [facility] 4.2.7.2.686 Juan J as [phone] [facility] 009 Branch 2020-12-17 2020-12-17 Transition Latrice Harding 1.2.840.114 [id number] Univers 00:00:00 00:00:00 of Care Josselyn Duque 350.1.13.10 it y of [place] 4.2.7.2.686 [place] [facility] [phone] [facility] 403 Branch 2020-12-14 2020-12-16 Emergency Jyoti Cedeno S [facility] 1.2.840.1 14 [id number] Univers 17:50:00 17:46:00 Ana Maria Meza 350.1.13.10 ity of [place] 4.2.7.2.686 [facility] [phone] [facility] 081 Branch 2020-11-16 2020-11-16 Orders Doctor JOSE 1.2.840.114 [id number] Univers 00:00:00 00:00:00 Only Unassigned, [place] 350.1.13.10 ity of [place] [facility] 4.2.7.2.686 Juan J [phone] [facility] 009 Branch 2020-10-30 2020-11-05 Inpatient EM Debi, [facility] [id number] [facility] 16:50:00 13:52:00 Fede 33890 [facility] 2020-10-31 2020-10-31 Outpatient ANNEL Carrera LABO [id number] [facility] 08:22:00 08:22:00 Fede 73 [facility] 2020-10-28 2020-10-28 Hospital Radiology [facility] 1.2.840.114 [id number] Univers 08:30:17 23:59:00 Encounter Sera 350.1.13.10 ity of [place] 4.2.7.2.686 [facility] [place] [id number] [facility] 807 Branch 2020-10-28 2020-10-28 Hospital Radiology [facility] 1.2.840.114 [id number] 08:30:17 23:59:00 Encounter [place] 350.1.13.10 [place] 4.2.7.2.686 [place] [id number] [id number] 2020-10-28 2020-10-28 Outpatient R RADIOLOGY [facility] [id number] Univers 00:00:00 00:00:00 ity of [place] [facility] 2020-10-12 2020-10-12 [facility] 1.2.840.114 [id number] Univers 14:02:10 14:50:48 Visit Bryan Sera 350.1.13.10 i ty of [place] [phone] [place] dical [facility] 204 [facility] 2020-10-12 2020-10-12 Outpatient R CHANTELLE [facility] [id number] Univers 14:00:00 14:50:48 BRYAN ity [facility] 2020-10-12 2020-10-12 [facility] [id number] Univers 14:00:00 14:00:00 [facility]-06 2020-10-06 [facility] 1.2.840.114 [id number] Univers 10:43:51 11:59:29 Visit Gina Perez 350.1.13.10 ity [facility] [place].2.7.2.[place] [phone] [place] dical [address] 2020-10-06 2020-10-06 Office [facility] 1.2.840.114 [id number] 10:43:51 11:59:29 Visit Gina Perez 350.1.13.10 [place] 4.2.7.2.686 Professio [phone] [address] 2020-10-06 2020-10-06 Outpatient R IVANA [facility] [id number] Univers 10:30:00 10:30:00 GINA baugh o f [facility] 2020-10-06 2020-10-06 Orders Doctor GARCIA 1.2.840.114 [id number] Univers 00:00:00 00:00:00 Only Unassigned, [place] 350.1.13.10 ity of [place] [facility] 4.2.7.2.686 Juan J as [phone] [address] 2020-09-28 2020-09-28 [facility] 1.2.840.114 [id number] Univers 17:28:00 21:08:00 Elmerji Anuj Perez 350.1.13.10 ity of [place] 4.2.7.2.686 [facility] [phone] [facility] 084 Branch 2020-09-28 2020-09-28 Transition Latrice French 1.2.840.114 [id number] Univers 00:00:00 00:00:00 of Care Gilda Duque 350.1.13.10 it y of [place].2.7.2.[place] [phone] [facility] 403 Branch 2020-09-23 2020-09-26 [facility] Wayne Can [facility] 1.2.840.1 14 [id number] Univers 13:50:00 18:28:00 Encounter Ambika Fernandez 350.1.13.10 ity of [place] 4.2.7.2.686 [facility] [phone] [place] 372421 [place] 2020-09-23 2020-09-26 Inpatient X GABRIELEALEJANDRA [facility] [id number] Univers 13:50:00 18:28:00 AMBIKA baugh [facility] 2020-09-22 2020-09-22 [facility]patient [facility] [id number] Univers 09:45:00 09:45:00 GINA palacio [facility] 2020-09-10 2020-09-10 Outpatient [facility] [id number] Univers 16:15:00 16:15:00 BRYAN baugh [facility] 2020-09-09 2020-09-09 Transition Latrice Aleman 1.2.840.114 [id number] Univers 00:00:00 00:00:00 of Care Rico Duque 350.1.13.10 it[place] of [place] [phone] [address] 2020-09-08 2020-09-08 Outpatient [facility] [id number] Univers 08:30:00 08:30:00 GINA palacio [facility] 2020-09-02 2020-09-07 Hospital Jose Guy [facility] 1.2.840.114 [id number] Univers 16:46:00 18:45:00 Encounter Alis Garcia [facility] 350. 1.13.10 ity of [place] 4.2.7.2.686 [place] Kaylyn Calvin Mejia [phone] [address] ([facility]) 2020-08-26 2020-08-26 Office Tha Gunter [facility] 1.2.840.114 [id number] Univers 10:44:06 11:14:06 Visit [facility] 350.1.13.10 it y of [place].2.[place] [phone] [address] Office Building 2020-08-26 2020-08-26 Outpatient R THA GUNTER [facility] [id number] Univers 10:30:00 10:30:00 ity [facility] 2020-08-25 2020-08-25 Outpatient Tim HEATH [facility] [id number] Univers 10:00:00 10:00:00 GINA palacio [facility] 2020-08-24 2020-08-24 Outpatient R YENI [facility] [id number] Univers 09:00:00 09:00:00 DEIDRE baugh [facility] 2020-08-21 2020-08-21 Office [facility] 1.2.840.114 [id number] Univers 08:43:52 09:13:46 Visit Gina Perez 350.1.13.10 ity of [place] 4.2.7.2.686 [place] [phone] [place] [address] Branch Building 2020-08-21 2020-08-21 Outpatient Tim HEATH [facility] [id number] Univers 08:30:00 08:30:00 GINA palacio [facility] 2020-08-10 2020-08-14 Inpatient EM ANNEL MontanezCL INTE.02 [id number] [facility] 09:09:00 18:56:00 Johnie Reardon [facility] 2020-08-11 2020-08-11 Outpatient [facility] [id number] Univers 09:15:00 09:15:00 GINA palacio [facility] 2020-08-07 2020-08-07 Outpatient [facility] [id number] Univers 10:00:00 10:00:00 GINA palacio [facility] 2020-07-27 2020-08-06 [facility] Jameson Mejia 1.2.840.1 14 [id number] Univers 12:13:00 17:15:00 Encounter Minnie Cardona 350.1.13.10 ity of [facility] 4.2.7.2.686 [place] Drew Noriega [phone] [facility] Skinner [facility] [address] [place] [address] 2020-07-27 2020-08-06 Inpatient JOHNIE SKINNER [facility] [id number] Univers 12:13:00 17:15:00 ity of [facility] 2020-07-24 2020-07-24 Outpatient [facility] [id number] Univers 13:00:00 13:00:00 GINA workman [facility] 2020-07-21 2020-07-21 Transition Latrice Aleman 1.2.840.114 [id number] Univers 00:00:00 00:00:00 of Care Rico Duque 350.1.13.10 ity of [place] 4.2.7.2.686 Noe beckett [phone] [address] 2020-07-10 2020-07-20 [facility] Janeth Leal 1.2.84 0.114 [id number] Univers 19:24:00 21:51:00 Encounter Oc Bryson 350.1.13.10 ity of Janeth Leal [facility] 4.2.7.2.686 [place] Minnie Cardona [phone] Medical Lisa Marroquin [address] 2020-07-17 2020-07-17 Outpatient [facility] [id number] Univers 10:00:00 10:00:00 JOSE itvashti [facility] 2020-07-10 2020-07-10 Outpatient R IVANA [facility] [id number] Univers 08:45:00 08:45:00 GINA franciscovashti ji anuj [facility] 2020-06-15 2020-06-15 Telephone [facility] 1.2.802.885 [id number] Univers 00:00:00 00:00:00 Jose Perez 350.1.13.10 i ty of [place].2.7.2.686 [place] [facility] [phone] Tx dical nal 204 [address] Building 2020-06-11 2020-06-11 Office [facility] 1.2.840.114 [id number] Univers 13:43:55 13:58:55 Visit Jose Reyes 350.1.13.10 it y of [place].2.[place].2.686 [place] - [phone] Med ical [facility] 188 Branch 2020-06-11 2020-06-11 Outpatient R JANKI [facility] [id number] Univers 13:30:00 13:30:00 JOSE baugh [facility] 2020-06-03 2020-06-03 Transition Latrice Aleman 1.2.840.114 [id number] Univers 00:00:00 00:00:00 of Care Rico Duque 350.1.13.10 ity of [place].2.686 [place] [phone] [facility] 403 Branch 2020-05-29 2020-06-02 [facility] Jameson Mejia [facility] 1.2.840.1 14 [id number] Univers 09:12:00 16:02:00 Encounter Lizett Gerardo 350.1.13.10 ity of [place] 4.2.7.2.686 [facility] [phone] [facility] 081 Branch 2020-05-29 2020-06-02 Inpatient X JAE [facility] [id number] Univers 09:12:00 16:02:00 MARTHA baugh [facility] 2020-05-29 2020-05-29 Outpatient R JANKI [facility] [id number] Univers 10:15:00 10:15:00 JOSE baugh [facility] 2020-04-23 2020-04-23 Office [facility] 1.2.840.114 [id number] Univers 13:48:18 14:03:18 Visit Jose [facility] 350.1.13.10 it y of [place].2.686 [place] - [phone] [address] 2020-04-23 2020-04-23 Outpatient [facility] [id number] Univers 13:30:00 13:30:00 JOSE baugh [facility] 2020-04-23 2020-04-23 Orders Doctor JOSE 1.2.840.114 [id number] Univers 00:00:00 00:00:00 Only Unassigned, [place] 350.1.13.10 ity of [place] [facility] 4.2.7.2.686 Juan J as [phone] [facility] 009 [place] 2020-04-09 2020-04-09 Office [facility] 1.2.840.114 [id number] Univers 13:58:45 14:13:45 Visit Jose [facility] 350.1.13.10 it y of [place] 4.2.7.2.686 [facility] s [place] - [phone] [address] 2020-04-09 2020-04-09 Out[facility] [id number] Univers 14:00:00 14:00:00 JOSE baugh [facility] 2020-03-27 2020-03-27 Transition Latrice Aleman 1.2.840.114 [id number] Univers 00:00:00 00:00:00 of Care Rico Duque 350.1.13.10 ity of [place].2.[place] [phone] [facility] 403 Branch 2020-03-15 2020-03-26 Hospital Jameson Mejia 1.2.840.1 14 [id number] Univers 23:48:00 18:02:00 Encounter Kandis Hough 350.1.13.10 ity of Janki [facility] 4.2.7.2.68 6 [place] [phone] [facility] 098 Branch 2020-03-18 2020-03-18 Anesthesia Caio Najera Nancy 1. 2.840.114 [id number] Univers 13:52:00 16:42:00 Stephanie Franks 350.1.13.10 ity of [facility] 4.2.7.2.686 [place] as [phone] [facility] 103 Branch 2020-02-06 2020-02-06 Transition Claudette Alemantanya 1.2.840.114 [id number] Univers 00:00:00 00:00:00 of Care Rico Zelayay 350.1.13.10 ity of [place].7.2.[place] [phone] [facility] 403 Branch 2020-02-03 2020-02-05 Hospital Óscar Hermosillo [facility] 1.2.8 40.114 [id number] Univers 16:55:00 20:40:00 Encounter Martha Rowe 350.1.13.10 ity of [place] 4.2.7.2.686 [place] [phone] [facility] 081 Branch 2020-01-17 2020-01-17 [facility] [id number] Univers 13:30:00 13:30:00 SENDIL ity of [facility] 2019-12-02 2019-12-02 Outpatient R [facility] [id number] Univers 15:00:00 15:00:00 ity of [facility] 2019-11-16 2019-11-21 Hospital Lopez Velazquez [facility] 1.2.840 .114 [id number] Univers 16:35:23 14:12:00 Encounter Heather Hermosillo 350.1.13.1 0 ity of [place] 4.2.7.2.686 [place] [id number] [place] 372421 Branch 2019-09-17 2019-09-18 [facility] 1.2.653.300 [id number] Univers 20:30:04 00:41:00 Valery Perez 350.1.13.10 ity of [place] 4.[place].7.2.686 [place] [id number] [facility] 084 [place] 2019-09-17 2019-09-18 Emergency X ALFIE [facility] ERT [id number] Univers 20:30:04 00:41:00 WAKILI ity [facility] 2019-09-05 2019-09-05 Outpatient [facility] [id number] Univers 14:00:00 14:00:00 SENDIL ity [facility] 2019-09-05 2019-09-05 Telemedici [facility] 1.2.840.114 [id number] Univers 08:17:17 08:47:17 ne Visit Sendil Hannah Perez 350.1.13.10 ity of [place] 4.[place].2.[place] [phone] [place] dicco nal [address] [place] [address] 2019-09-05 2019-09-05 Telephone [facility] 1.2.045.248 [id number] Univers 00:00:00 00:00:00 Sendil Hannah Perez 350.1.13.10 ity of [place].2.[place] [phone] Tx dicco nal [address] [place] [address] 2019-09-03 2019-09-03 Outpatient R ANNA [facility] [id number] Univers 10:30:00 10:30:00 SENDIL ity [facility] 2019-08-20 2019-08-20 Telephone [facility] 1.2.135.604 [id number] Univers 00:00:00 00:00:00 Nika SHAW 350.1.13.10 ity of [place]2.[place].2.[place] [facility] [phone] [place] dical 390 [place] 2019-08-19 2019-08-19 Refill Nancy Lee 1.2.840.114 [id number] Univers 00:00:00 00:00:00 Lola Figueroa 350.1.13.10 it y of Hospital 4.2.7.2.686 [place] as [phone] [facility] 090 [place] 2019-08-16 2019-08-16 Refill Nancy Lee 1.2.840.114 [id number] Univers 00:00:00 00:00:00 Lola Carolina 350.1.13.10 it y of [facility] 4.2.7.2.686 [place] as [phone] [facility] 090 Branch 2019-08-15 2019-08-15 [facility] 1.2.840.114 [id number] Univers 11:58:21 15:28:00 Demarcus Perez 350.1.13.10 i ty of [place] 4.2.7.2.686 [place] [id number] [facility] 084 Branch 2019-08-15 2019-08-15 Emergency [facility] ERT [id number] Univers 11:58:21 15:28:00 DEMARCUS ity [facility] 2019-08-15 2019-08-15 Case JOSE Castillo 1.2.840.114 [id number] Univers 00:00:00 00:00:00 Management Ninfa FIGUEROA 350.1.13.10 ity [facility] 4.2.7.2.686 [place] J as [phone] [facility] 008 Branch 2019-08-15 2019-08-15 Telephone Anna [facility] 1.2.265.209 [id number] Univers 00:00:00 00:00:00 Ninfa Perez 350.1.13.10 ity of [place] 4.2.7.2.686 [place] [facility] [phone] [facility] 059 [facility] 2019-08-12 2019-08-12 Transition Latrice Ramirez 1.2.840.114 [id number] Univers 00:00:00 00:00:00 of Care Joan Duque 350.1.13.10 ity of [place] 4.2.7.2.[place] [id number] [facility] 403 Branch 2019-08-06 2019-08-09 Emergency Wayne Can [facility] 1.2.840. 114 [id number] Univers 14:06:47 15:19:00 Lizett Gerardo 350.1.13.10 ity of [place] 4.2.7.2.686 [place] [id number] [facility] 081 Branch 2019-08-06 2019-08-09 Outpatient X HUMAIRA [facility] [id number] Univers 14:06:47 15:19:00 LIZETT ity of [facility] 2019-08-06 2019-08-06 Outpatient R TRAVIS, [facility] [id number] Univers 13:30:00 13:30:00 RICHMOND ity o f [facility] 2019-08-06 2019-08-06 Outpatient R TRAVIS, [facility] [id number] Univers 11:00:00 11:00:00 RICHMOND ity o f [facility] 2019-08-06 2019-08-06 Outpatient R TRAVIS, [facility] [id number] Univers 11:00:00 11:00:00 JUNIEJULIANN baugh o f [facility] 2019-08-06 2019-08-06 Orders Doctor JOSE 1.2.840.114 [id number] Univers 00:00:00 00:00:00 Only Unassigned, [place] 350.1.13.10 ity of [place] [facility] 4.2.7.2.686 Juan J as [id number] [facility] 009 Branch 2019-07-19 2019-07-19 Transition Latrice French 1.2.840.114 [id number] Univers 00:00:00 00:00:00 of Care Gilda Duque 350.1.13.10 it y of [place] 4[place].2.[place] [id number] [facility] 403 Branch 2019-07-17 2019-07-18 Emergency Valery Carrillo 1.2.840 .114 [id number] Univers 21:36:10 21:05:00 Abu-Josy Tareq [place] 350.1.13.1 0 ity of Hospital 4.2.7.2.686 [place] as [phone] [facility] 090 Branch 2019-07-17 2019-07-18 Outpatient X ABU-JOSY, [facility] [id number] Univers 21:36:10 21:05:00 ABU-JOSY, TAREQ ity of [facility] 2019-07-03 2019-07-03 Transition Latrice French 1.2.840.114 [id number] Univers 00:00:00 00:00:00 of Care Gilda Duque 350.1.13.10 it y of [place] [id number] [address] 2019-07-01 2019-07-01 Transition Latrice French 1.2.840.114 [id number] Univers 00:00:00 00:00:00 of Care Gilda Duque 350.1.13.10 it y of [place] 4.2.7.2.[place] [id number] [facility] 403 [place] 2019-06-27 2019-06-27 Transition Latrice French 1.2.840.114 [id number] Univers 00:00:00 00:00:00 of Care Gilda Duque 350.1.13.10 it y of [place] 4.2.[place].2.[place] [id number] [facility] 403 [place] 2019-06-24 2019-06-26 [facility] [id number] Univers 14:51:01 18:37:00 MICHAEL ity [facility] 2019-06-24 2019-06-26 Hospital Janeth Leal 1.2.84 0.114 [id number] Univers 14:51:01 18:37:00 Encounter Michael Shirley 350.1.1 3.10 ity of [facility] 4.2.7.2.686 [place] [phone] [facility] 090 Branch 2019-02-06 2019-02-06 Telephone JOSE Bhatt 1.2.840.114 [id number] Univers 00:00:00 00:00:00 Cortney FIGUEROA 350.1.13.10 i ty of [facility] 4.2.7.2.686 [place] J as [id number] [facility] 008 Branch 2019-02-05 2019-02-05 Emergency [facility] 1.2.972.117 [id number] Univers 17:30:29 21:52:00 Jyoti Perez 350.1.13.10 i ty of [place] 4.2.7.2.686 [place] [id number] [place] 372424 Branch 2019-01-30 2019-01-30 Transition Claudette Quevedotanya 1.2.840.114 [id number] Univers 00:00:00 00:00:00 of Care Rhonda Duque 350.1.13.10 it y of [place] 4.2.7.2.[place] [id number] [facility] 403 Branch 2019-01-24 2019-01-29 [facility] Wayne Can 1.2.840.1 14 [id number] Univers 16:01:37 14:55:00 Encounter Dennis Finley 350.1.13.10 ity [facility] 4.2.7.2.686 [place] J as [id number] [place] 372429 Branch 2019-01-22 2019-01-22 Transition EmyClaudettetanya 1.2.840.114 [id number] Univers 00:00:00 00:00:00 of Care Rhonda Duque 350.1.13.10 it y of [place] 4.2.7.2.[place] [id number] [facility] 403 Branch 2019-01-16 2019-01-19 [facility] Carlos Allen 1.2.840.11 [id number] Univers 23:52:03 14:36:00 Encounter Martha Rowe 350.1.13.10 ity of [place], [facility] 4.2.7.2.686 [place] [phone] [place] [address] Branch 2017-10-23 2017-10-27 Discharged 1 [facility] [id number] 17:29:00 16:54:00 Inpatient ALEXIS 90 [place] Patient [facility] 2017-04-03 2017-04-04 [id number] 23:17:00 03:53:00 Emergency LAIRD 56 [place] Room Patient [facility] 2017-03-05 2017-03-09 Discharged ER [facility] [id number] 06:54:00 10:58:00 Inpatient NICHELLE 44 [place] (obs) [facility] 2017-01-04 2017-01-05 Discharged [facility] [id number] 10:33:00 18:56:00 Inpatient 61 Favio s (obs) [facility] Orders Doctor JOSE 1.2.840.114 [id number] Univers 00:00:00 00:00:00 Only Unassigned, [place] 350.1.13.10 ity of [place] [facility] 4.2.7.2.686 Juan J as [id number] Medi uriel 009 Branch Results Test Description Test Time Test Comments Results Result Comments Source Transthoracic echo (TTE) 2022-02-10 17:43:07 Test Item Value Reference Range Interpretation Comme nts Height (test code = 7317437215) in Weight (test code = 3905779804) lbs Systolic BP (test code = 3290249784) mmHg Diastolic BP (test code = 6843473323) mmHg Heart Rate (test code = 1548316077) bpm BSA (test code = 5072105335) 1.86 m2 Ao root diam (test code = 4533102576) 3.10 cm Aortic root (test code = 6068200409) 3.1 cm Ao root annulus (test code = 3.1 cm 2818864908) LVOT diameter (test code = 1.83 cm 1082594702) LVOT area (test code = 7536666215) 2.60 cm2 LVIDD (test code = 5510057672) 4.80 cm Left Ventricular End Diastolic Volume 107.5 mL by Teichholz Method (test code = 4446474) IVS (test code = 6961053438) 1.35 cm Interventricular Septum Diastolic 1.35 cm Thickness by 2D (test code = 3784572) LVPWD (test code = 3725083996) 1.35 cm PW (test code = 6724414824) 1.35 cm 0.6-1.1 EF(Teich) (test code = 9788646692) 30.10 % LVIDS (test code = 0417286464) 4.10 cm Left Ventricular End Systolic Volume 75.1 mL by Teichholz Method (test code = 3432641) FS (test code = 3418950310) 14 % EF - 2D (test code = 90148502) 30.10 % LA size (test code = 1652581493) 4.1 cm TR Peak Haile (test code = 5910770378) 232.4 cm/s Triscuspid Valve Regurgitation Peak mmHg Gradient (test code = 6205377930) LAV(MOD-sp4) (test code = 3079247141) 103.10 mL E wave decelartion time (test code = 0.15 s 7398103213) MV stenosis pressure 1/2 time (test 44.6 ms code = 5620705453) MV Peak E Haile (test code = 110.2 cm/s 3170278434) MV Peak A Haile (test code = 28.7 cm/s 3986256216) E/A ratio (test code = 2458521423) ratio MR max PG (test code = 2625847784) 78.70 mm[Hg] MR max haile (test code = 2133148102) 443.40 cm/s Mr max haile (test code = 5479449939) 443.4 m/s MV Prop V (test code = 0715825191) 45.00 cm/s MV E/e' septal (test code = 9.2 cm/s 9507685416) Tapse (test code = 5363084868) 1.53 cm LVOT stroke volume (test code = 41.70 cm3 0182964122) LVOT peak haile (test code = 87.2 cm/s 0804903976) LVOT mn grad (test code = 6580596501) mmHg AV LVOT peak gradient (test code = mmHg 0693588580) LVOT peak VTI (test code = 15.8 cm 3605616341) LV V1 mean (test code = 1886292801) 51.30 cm/s Aortic valve mean velocity (test code 78.3 cm/s = 9847596643) Ao peak haile (test code = 9426950137) 111.8 cm/s Ao VTI (test code = 9753923260) 21.5 cm AV area by cont VTI (test code = 1.9 cm2 1596208574) AV area peak haile (test code = 2.1 cm2 3586525239) Ao max PG (test code = 8087861211) 5.00 mm[Hg] AV peak gradient (test code = mmHg 4390737443) AV valve area (test code = 1.94 cm2 7112381000) AV mean gradient (test code = mmHg 1063168330) Radiology Study observation (narrative) (test code = 39536-3) DIANE (test code = DIANE) Table formatting [...] lateral and apex.All other segments are normal. [facility]lineTROPONIN [id number] 12:01:08 Test Item Value Reference Interpretation Comments Range TROPONIN I (test 0.021 ng/mL See_Comment [Automated code = 4557892213) message] The system which generated this result [...] biotin. Lab Interpretation Normal (test code = 17223-8) [facility]lineMAGNESIUM2022-09-22 11:50:23 Test Item Value Reference Range Interpretation Comments MAGNESIUM (test code = 0733100315) 1.7 mg/dL 1.7-2.4 Lab Interpretation (test code = Normal 01077-7) [facility]lineCOMP. METABOLIC PANEL (00881)2022-02-10 11:50:22 Test Item Value Reference Range Interpretation Comments NA (test code = 138 mmol/L 135-145 0915522788) K (test code = 3.9 mmol/L 3.5-5 6569415075) CL (test code = 108 mmol/L 98-108 2321773921) CO2 TOTAL (test code = 24 mmol/L 23-31 3641064247) AGAP (test code = 2-16 4305922341) BUN (test code = 19 mg/dL 7-23 0027807326) GLUCOSE (test code = 117 mg/dL 70-110 H 2921576527) CREATININE (test code = 0.91 mg/dL 0.6-1.25 8854128068) TOTAL BILI (test code = 1.0 mg/dL 0.1-1.1 0309840345) CALCIUM (test code = 8.5 mg/dL 8.6-10.6 L 3077299303) T PROTEIN (test code = 6.4 g/dL 6.3-8.2 9924921969) ALBUMIN (test code = 3.4 g/dL 3.5-5 L 0696925006) ALK PHOS (test code = 177 U/L 34-122 H 1921030133) ALTv (test code = 24 U/L 5-50 1742-6) AST(SGOT) (test code = 38 U/L 13-40 6843337504) eGFR (test code = mL/min/1.73m2 0238203025) DIANE (test code = DIANE) Association of [...] tests). Lab Interpretation Abnormal (test code = 00185-0) [facility]OSPHORUS2022-09-22 11:50:22 Test Item Value Reference Range Interpretation Comments PHOSPHORUS (test code = 5234603720) 5.1 mg/dL 2.5-5 H Lab Interpretation (test code = Abnormal 35950-4) [facility] WITH [id number] 11:19:02 Test Item Value Reference Range Interpretation [...] RDW-SD (test code = 48.0 fL 38.5-51.6 42415-6) RDW-CV (test code = 14.2 % 12.1-15.4 788-0) PLT (test code = See_Comment [Automated 777-3) message] The sy stem which generated this result transmitted reference range : 150 - 328 10*3/ ?L. The reference r batsheva was not used to interpret this result as normal/abnormal . MPV (test code = 10.2 fL 9.8-13 20465-1) NRBC/100 WBC (test See_Comment [Automat ed code = 4116955802) message] The system which generated this result transmitted reference range : 0.0 - 10.0 /100 WBCs. The refer ence range was not u sed to interpret th is result as normal/abnormal . NRBC x10^3 (test code See_Comment [Auto mated = 1574499286) message] The s ystem which generated this result transmitted reference range : 10*3/?L. The reference range was not used to interpret this result as normal/abnormal . GRAN MAT (NEUT) % 68.5 % (test code = 770-8) IMM GRAN % (test code 0.40 % = 7514558713) LYMPH % (test code = 19.0 % 736-9) MONO % (test code = 8.3 % 5905-5) EOS % (test code = 3.4 % 713-8) BASO % (test code = 0.4 % 706-2) GRAN MAT x10^3(ANC) 3.65 10*3/uL 1.99-6.95 (test code = 9968174186) IMM GRAN x10^3 (test 0-0.06 code = 9477336938) LYMPH x10^3 (test code 1.01 10*3/uL 1.09-3.23 L = 731-0) MONO x10^3 (test code 0.44 10*3/uL 0.36-1.02 = 742-7) EOS x10^3 (test code = 0.18 10*3/uL 0.06-0.53 711-2) BASO x10^3 (test code 0.01-0.09 = 704-7) Lab Interpretation Abnormal (test code = 98921-0) [facility] Natriuretic Factor (BNP)2022-01-30 23:33:12 Test Item Value Reference Range Interpretation Comments BNP (test code = 77086-0) 443 pg/mL 0-100 H DIANE (test code = DIANE) Decision Support Manager ID - ADRY Lab Interpretation (test Abnormal code = 61487-4) [facility] 23:33:12 Test Item Value Reference Range Interpretation Comments BNP (test code = 24735-0) 443 pg/mL 0-100 H DIANE (test code = DIANE) Decision Support Manager ID - ADRY Lab Interpretation (test Abnormal code = 38977-1) [facility]22-01-30 23:33:12 Test Item Value Reference Range Interpretation Comments BNP (test code = 18442-8) 443 pg/mL 0-100 H DIANE (test code = DIANE) Decision Support Manager ID - ADRY Lab Interpretation (test Abnormal code = 79862-5) [facility]-30 23:33:12 Test Item Value Reference Range Interpretation Comments BNP (test code = 41201-5) 443 pg/mL 0-100 H DIANE (test code = DIANE) Decision Support Manager ID - ADRY Lab Interpretation (test Abnormal code = 37145-0) [facility]-30 23:33:12 Test Item Value Reference Range Interpretation Comments BNP (test code = 81286-9) 443 pg/mL 0-100 H DIANE (test code = DIANE) Decision Support Manager ID - ADRY Lab Interpretation (test Abnormal code = 73447-9) [facility]-01-30 23:33:12 Test Item Value Reference Range Interpretation Comments BNP (test code = 40628-2) 443 pg/mL 0-100 H DIANE (test code = DIANE) Decision Support Manager ID - ADRY Lab Interpretation (test Abnormal code = 93321-5) [facility]-30 23:33:12 Test Item Value Reference Range Interpretation Comments BNP (test code = 53937-4) 443 pg/mL 0-100 H DIANE (test code = DIANE) Decision Support Manager ID - ADRY Lab Interpretation (test Abnormal code = 60017-0) [facility]-01-30 23:33:12 Test Item Value Reference Range Interpretation Comments BNP (test code = 88035-7) 443 pg/mL 0-100 H DIANE (test code = DIANE) Decision Support Manager ID - ADRY Lab Interpretation (test Abnormal code = 99293-4) [facility]22-01-30 23:33:12 Test Item Value Reference Range Interpretation Comments BNP (test code = 84617-5) 443 pg/mL 0-100 H DIANE (test code = DIANE) Decision Support Manager ID - ADRY Lab Interpretation (test Abnormal code = 47599-4) [facility]BNP[facility]2022-01-30 23:33:12 Test Item Value Reference Range Interpretation Comments B-TYPE NATRIURETIC PEPTIDE (BEAKER) 443 pg/mL 0-100 H (test code = 700) Decision Support Manager ID - MAI [id number] 20:57:59 Test Item Value Reference Interpretation Comments Range TROPONIN I (test 0.017 ng/mL See_Comment [Automated code = 0441759489) message] The system which generated this result [...] biotin. Lab Interpretation Normal (test code = 70825-2) [facility]lineN-TERMINAL [id number] 20:54:59 Test Item Value Reference Range Interpretation Comments NT-proBNP (test code 6490 pg/mL See_Comment H [Autom ated = 2826421761) message] The system which generated this result transmitted reference range : <=125. The reference range was not used to interpret this result as normal/abnormal . DIANE (test code = DIANE) Biotin has been reported to cause a negative bias, interpret results relative to patient's use of biotin. Lab Interpretation Abnormal (test code = 80247-3) [facility]2022-06-21 20:46:35 Test Item Value Reference Range Interpretation Comments MAGNESIUM (test code = 5790088348) 1.5 mg/dL 1.7-2.4 L Lab Interpretation (test code = Abnormal 68994-2) [facility]. METABOLIC PANEL (95073)2021-11-09 20:46:34 Test Item Value Reference Range Interpretation Comments NA (test code = 140 mmol/L 135-145 9756124689) K (test code = 3.9 mmol/L 3.5-5.0 3952412702) CL (test code = 111 mmol/L 98-108 H 1998395393) CO2 TOTAL (test code = 16 mmol/L 23-31 L 4673936732) AGAP (test code = 2-16 9378465670) BUN (test code = 14 mg/dL 7-23 6982677884) GLUCOSE (test code = 189 mg/dL 70-110 H 0994843699) CREATININE (test code = 0.66 mg/dL 0.60-1.25 8282502075) TOTAL BILI (test code = 0.8 mg/dL 0.1-1.2 9660716306) CALCIUM (test code = 8.3 mg/dL 8.6-10.6 L 9566358205) T PROTEIN (test code = 6.5 g/dL 6.3-8.2 6106912036) ALBUMIN (test code = 3.3 g/dL 3.5-5.0 L 2033641975) ALK PHOS (test code = 136 U/L 34-122 H 8953556587) ALTv (test code = 18 U/L 5-50 1742-6) AST(SGOT) (test code = 26 U/L 13-40 2186686843) eGFR (test code = mL/min/1.73m2 9839924511) DIANE (test code = DIANE) Association of [...] tests). Lab Interpretation Abnormal (test code = 60462-5) [facility] WITH [id number] 20:33:30 Test Item Value Reference Range Interpretation Comments WBC (test code = See_Comment [Automated 4596-2) message] The sy stem which generated this result transmitted reference range : 4.20 - 10.70 10*3/?L. The reference range was not used to interpret this result as normal/abnormal . RBC (test code = See_Comment [Automated 749-8) message] The sy stem which [...] RDW-SD (test code = 45.4 fL 38.5-51.6 90660-5) RDW-CV (test code = 14.2 % 12.1-15.4 788-0) PLT (test code = See_Comment [Automated 777-3) message] The sy stem which generated this result transmitted reference range : 150 - 328 10*3/ ?L. The reference r batsheva was not used to interpret this result as normal/abnormal . MPV (test code = 9.8 fL 9.8-13.0 53104-7) NRBC/100 WBC (test See_Comment [Automat ed code = 1171866157) message] The system which generated this result transmitted reference range : 0.0 - 10.0 /100 WBCs. The refer ence range was not u sed to interpret th is result as normal/abnormal . NRBC x10^3 (test code <0.01 See_Comment [Auto mated = 3892815946) message] The s ystem which generated this result transmitted reference range : 10*3/?L. The reference range was not used to interpret this result as normal/abnormal . GRAN MAT (NEUT) % 62.3 % (test code = 770-8) IMM GRAN % (test code 0.80 % = 6049869506) LYMPH % (test code = 25.1 % 736-9) MONO % (test code = 6.7 % 5905-5) EOS % (test code = 4.7 % 713-8) BASO % (test code = 0.4 % 706-2) GRAN MAT x10^3(ANC) 4.76 10*3/uL 1.99-6.95 (test code = 8263939609) IMM GRAN x10^3 (test 0.06 10*3/uL 0.00-0.06 code = 1769926523) LYMPH x10^3 (test code 1.92 10*3/uL 1.09-3.23 = 731-0) MONO x10^3 (test code 0.51 10*3/uL 0.36-1.02 = 742-7) EOS x10^3 (test code = 0.36 10*3/uL 0.06-0.53 711-2) BASO x10^3 (test code 0.03 10*3/uL 0.01-0.09 = 704-7) Lab Interpretation Abnormal (test code = 13628-2) [facility]line[facility]CT GLUCOSE (AUTOMATED)2021-11-09 20:27:39 Test Item Value Reference Range Interpretation Comments POCT GLU (test code = 8795410607) 190 mg/dL 70-110 H Lab Interpretation (test code = Abnormal 30317-2) [facility]line[facility] BEDSIDE [id number] 11:52:00 Test Item Value Reference Range Interpretation Comments GLUCOSE BEDSIDE TESTING (test code = 92 mg/dL 70-110 N GLUBED) GLUCOSE BEDSIDE [id number] 08:05:00 Test Item Value Reference Range Interpretation Comments GLUCOSE BEDSIDE TESTING (test code = 62 mg/dL 70-110 L GLUBED) GLUCOSE BEDSIDE [id number] 20:40:00 Test Item Value Reference Range Interpretation Comments GLUCOSE BEDSIDE TESTING (test code 105 mg/dL 70-110 N = GLUBED) GLUCOSE BEDSIDE [id number] 17:02:00 Test Item Value Reference Range Interpretation Comments GLUCOSE BEDSIDE TESTING (test code 128 mg/dL 70-110 H = GLUBED) GLUCOSE BEDSIDE [id number] 16:37:00 Test Item Value Reference Range Interpretation Comments GLUCOSE BEDSIDE TESTING (test code 105 mg/dL 70-110 N = GLUBED) GLUCOSE BEDSIDE [id number] 08:17:00 Test Item Value Reference Range Interpretation Comments GLUCOSE BEDSIDE TESTING (test code = 88 mg/dL 70-110 N GLUBED) GLUCOSE BEDSIDE [id number] 19:45:00 Test Item Value Reference Range Interpretation Comments GLUCOSE BEDSIDE TESTING (test code 115 mg/dL 70-110 H = GLUBED) GLUCOSE BEDSIDE [id number] 18:13:00 Test Item Value Reference Range Interpretation Comments GLUCOSE BEDSIDE TESTING (test code = 74 mg/dL 70-110 N GLUBED) GLUCOSE BEDSIDE [id number] 17:29:00 Test Item Value Reference Range Interpretation Comments GLUCOSE BEDSIDE TESTING (test code = 44 mg/dL 70-110 LL GLUBED) GLUCOSE BEDSIDE [id number] 12:26:00 Test Item Value Reference Range Interpretation Comments GLUCOSE BEDSIDE TESTING (test code = 96 mg/dL 70-110 N GLUBED) GLUCOSE BEDSIDE [id number] 08:21:00 Test Item Value Reference Range Interpretation Comments GLUCOSE BEDSIDE TESTING (test code = 77 mg/dL 70-110 N GLUBED) GLUCOSE BEDSIDE [id number] 20:12:00 Test Item Value Reference Range Interpretation Comments GLUCOSE BEDSIDE TESTING (test code = 91 mg/dL 70-110 N GLUBED) GLUCOSE BEDSIDE [id number] 16:42:00 Test Item Value Reference Range Interpretation Comments GLUCOSE BEDSIDE TESTING (test code 106 mg/dL 70-110 N = GLUBED) GLUCOSE BEDSIDE [id number] 11:49:00 Test Item Value Reference Range Interpretation Comments GLUCOSE BEDSIDE TESTING (test code = 89 mg/dL 70-110 N GLUBED) GLUCOSE BEDSIDE [id number] 08:22:00 Test Item Value Reference Range Interpretation Comments GLUCOSE BEDSIDE TESTING (test code = 68 mg/dL 70-110 L GLUBED) GLUCOSE BEDSIDE [id number] 20:05:00 Test Item Value Reference Range Interpretation Comments GLUCOSE BEDSIDE TESTING (test code 137 mg/dL 70-110 H = GLUBED) GLUCOSE BEDSIDE [id number] 16:42:00 Test Item Value Reference Range Interpretation Comments GLUCOSE BEDSIDE TESTING (test code = 98 mg/dL 70-110 N GLUBED) GLUCOSE BEDSIDE [id number] 11:13:00 Test Item Value Reference Range Interpretation Comments GLUCOSE BEDSIDE TESTING (test code 118 mg/dL 70-110 H = GLUBED) GLUCOSE BEDSIDE [id number] 07:37:00 Test Item Value Reference Range Interpretation Comments GLUCOSE BEDSIDE TESTING (test code 140 mg/dL 70-110 H = GLUBED) COMPREHENSIVE METABOLIC [id number] 06:34:00 Test Item Value Reference Range Interpretation [...] TOTAL (test code = ALKP) CBC W/AUTO [id number] 06:25:00 Test Item Value Reference Range Interpretation [...] DIFF/SCN CRITERIA = MDIFF) - CT ABDOMEN W/[id number] 03:09:00 [facility] 1960 Sex: M Name: FAITH VANCE [facility] : 1960 Age/S: 60 / M [address] Unit #: [id number] Loc: [place] [address] Phys: Fede Carrera DO Acct: [id number] Dis Date: Status: ADM IN PHONE #: [phone] Exam Date: 10/31/20201919 FAX #: Reason: NAUSEA, VOMITING, DIARRHEA EXAMS: CPT: [id number] CT ABDOMEN W/CONTRAST 78573 EXAM: - CT ABDOMEN W/CONTRAST LOCATION: H61 [...] lesions. Mild nonspecific bilateral perinephric fat stranding isstable. 2.4 similar cyst in the anterior mid right renal cortex is stable. VESSELS: No AAA. Patent portal vein. LYMPH NODES: No lymphadenopathy. PERITONEUM / RETROPERITONEUM: No free air or fluid. GI TRACT: There is enteric contrast present within the stomach, small bowel and colon. There is no small bowel obstruction. There is no PAGE 1 Signed Report (CONTINUED) Name: FAITH VANCE [facility] : 1960 Age/S: 60 / M [address] Unit #: [id number] Loc: [place] [address] Phys: Ana Fede mcclellan DO Acct: [id number] Dis Date: Status: ADM IN PHONE #: [phone] Exam Date: 10/31/20201919 FAX #: Reason: NAUSEA, VOMITING, DIARRHEA EXAMS: CPT: [id number] CT ABDOMEN W/CONTRAST 93932 <Continued> small bowel wall thickening. The appendix is normal. There is no evidence of colitis no colonic obstruction. Evaluation of the distal sigmoid colon is limited due to streak artifact frombarium. EXTERNAL SOFT TISSUE: No abnormalities. BONES: Postsurgical changes of median sternotomy. Noacute fractures. Posterior laminectomies at L4- L5 with posterior fusion. Posterior fusion construct consists of a left-sided transpedicular screw at L4, left transarticular screw at L5-S1 and a single v ertical erika. There are solid bilateral posterior fusion bone masses. IMPRESSION: 1. No acute findings in the abdomen. No small bowel obstruction or colonic obstruction. 2. Moderate bilateral pleural effusions. at 0309 Reported and signed by: Carmen Encarnacion M.D. CC: Nika Martin MD; Fede Carrera DO Technologist:RT Rohan(R) CTDI: DLP: Trnscb Date/Time: 11/01/2020 (030) [email or web address] Orig Print D/T: S: 11/01/2020 (917) PAGE 2 Signed ReportGLUCOSE BEDSIDE TESTING 2020-10-31 21:34:00 Test Item Value Reference Range Interpretation Comments GLUCOSE BEDSIDE TESTING (test code 161 mg/dL 70-110 H = GLUBED) GLUCOSE BEDSIDE [id number] 17:32:00 Test Item Value Reference Range Interpretation Comments GLUCOSE BEDSIDE TESTING (test code 136 mg/dL 70-110 H = GLUBED) - XR ABDOMEN 1 [id number] 12:44:00 [facility] 1960 Sex: M Name: FAITH VANCE [facility] : 1960 Age/S: 60 / M [address] Unit #: [id number] Loc: [place] [address] Phys: Fede Carrera DO Acct: [id number] Dis Date: Status: ADM IN PHONE #:[phone] Exam Date: 10/31/2020 1227 FAX #: Reason: Abdominal pain in the lower qudarants EXAMS:CPT: [id number] XR ABDOMEN 1 V 04539 Fluoro Time: DAP (Gy m2): Air Kerma [...] PAGE 1 Signed Report Name: FAITH VANCE [place] : 1960 Age/S: 60 / M [address] [facility] Unit #: [id number] Loc: [place] [address] Phys: Fede Carrera DO Acct: [id number] Dis Date: Status: ADM IN PHONE #: [phone] Exam Date: 10/31/2020 1227 FAX #: Reason: Abdominal pain in the lower qudarants EXAMS: CPT: [id number] XR ABDOMEN 1 V 67838 Fluoro Time: DAP (Gy m2): Air Kerma (mGy): <Continued> Technologist: RT Rohan(Tim) Trnscb Date/Time: 10/31/2020 (2904) tJAH Orig Print D/T: S: 10/31/2020 (7407) PAGE 2 Signed Report GLUCOSE BEDSIDE [id number] 11:58:00 Test Item Value Reference Range Interpretation Comments GLUCOSE BEDSIDE TESTING (test code 105 mg/dL 70-110 N = GLUBED) GLUCOSE BEDSIDE [id number] 08:01:00 Test Item Value Reference Range Interpretation Comments GLUCOSE BEDSIDE TESTING (test code 106 mg/dL 70-110 N = GLUBED) [id number] 22:46:00 Test Item Value Reference Range Interpretation [...] yby method. Completed by Nursing: NOGLUCOSE BEDSIDE [id number] 21:55:00 Test Item Value Reference Range Interpretation Comments GLUCOSE BEDSIDE TESTING (test code 119 mg/dL 70-110 H = GLUBED) [id number] 19:33:00 Test Item Value Reference Range Interpretation [...] method. Completed by Nursing: NOCoronavirus 2019 nCoV [id number] 18:46:00 Test Item Value Reference Range Interpretation Comments Coronavirus 2019 nCoV Negative Negative Per arnie west, Bedside (test code = negativ e results should [id number]) be treated aspresumptive a nd, if inconsistent [...] with COVID-19. Spec Comments: NNT PRO-BRAIN NATRIURETIC [id number] 15:51:00 Test Item Value Reference Range Interpretation Comments NT PRO-BRAIN NATRIURETIC PEPTI 6079 PG/ML 0-100 H (test code = PROBNP) Completed by Nursing: [id number] 15:51:00 Test Item Value Reference Range Interpretation [...] yby method. Completed by Nursing: NOBASIC METABOLIC [id number] 15:51:00 Test Item Value Reference Range Interpretation [...] Completed by Nursing: NO- XR CHEST 1 [id number] 15:42:00 [facility] 1960 Sex: M Name: FAITH VANCE [place] : 1960 Age/S: 60 / M [address] Unit #: [id number] Loc: [place] [address] Phys: Todd Jacobo MD Acct: [id number] Dis Date: Status: PRE ER PHONE #: [phone] Exam Date: 10/30/2020 1524 FAX #: Reason: chest pain EXAMS: CPT: [id number] XR CHEST 1 V 84263 Fluoro Time: DAP (Gy m2): Air Kerma [...] PAGE 1 Signed Report Name: FAITH VANCE [place] : 1960 Age/S: 60 / M [address] Unit #: [id number] Loc: [place] [address] Phys: Todd Jacobo MD Acct: [id number] Dis Date: Status: PRE ER PHONE #: [phone] Exam Date: 10/30/2020 1524 FAX #: Reason: chest pain EXAM S: CPT: [id number] XR CHEST 1 V 37912 Fluoro Time: DAP (Gy m2): Air Kerma (mGy): <Continued> Technologist: Kim Andrews RT(R)(CT) Trnscb Date/Time: 10/30/2020 (1177) [email or web address] Orig Print D/T:S: 10/30/2020 (7283) PAGE 2 Signed ReportC W/O [id number] 15:31:00 Test Item Value Reference Range Interpretation [...] 9.70 fL 7.0-9.6 H MPV) BASIC METABOLIC [id number] 21:42:00 Test Item Value Reference Range Interpretation [...] 9.6 mg/dL 8.0-10.5 N CA) HEPATIC FUNCTION [id number] 21:42:00 Test Item Value Reference Range Interpretation [...] 114 IUnit/L 20-125 N code = ALKP) [id number] 21:42:00 Test Item Value Reference Range Interpretation Comments LIPASE (test code = LIP) 70 U/L 13-57 H [id number] 21:42:00 Test Item Value Reference Range Interpretation [...] by method. UA RFLX MICR CULT IF [id number] 21:37:00 Test Item Value Reference Range Interpretation [...] INDWELLING CATH (CEDENO)Cath Status: Under 72 hoursPROTHROMBIN [id number] 21:35:00 Test Item Value Reference Range Interpretation [...] (to prevent recurrent infar ct). THROMBOPLASTIN TIME [id number] 21:35:00 Test Item Value Reference Range Interpretation Comments THROMBOPLASTIN TIME 41.7 Seconds 25.0-39.5 H Therape utic Range: PARTIAL (test code = 50.4 - 88.3 Seconds PTT) Effective 09/04/2018 CBC W/AUTO [id number] 21:29:00 Test Item Value Reference Range Interpretation [...] = MDIFF) - CT ABD PELVIS W/O [id number] 20:49:00 [facility] : 1960 Sex: M Name: FAITH VANCE [facility] : 1960 Age/S: 60 / M [address] [place] [address] Bl Unit #: [id number] Loc: [place] [address] Phys: Gisel Eugene [employer] Acct: [id number] Dis Date: Status: REG ER PHONE #: [phone] Exam Date: 08/23/20202024 FAX #: [phone] Reason: DIFFUSE ABDOMINAL PAIN EXAMS: CPT CODE: [id number] CT ABD PELVIS W/O CONT 80140 Clinical indication: Diffuse abdominal pain. Contrast - [...] 1 Signed Report (CONTINUED) Name: FAITH VANCE [facility] : 1960 Age/S: 60 / M [address] [place] [address] Unit #: [id number] Loc: [place] [address] Phys: Gisel Eugene [facility] Acct: [id number] Dis Date: Status: REG ERPHONE #: [phone] Exam Date: 08/23/20202024 FAX #: [phone] Reason: DIFFUSE ABDOMINAL PAIN EXAMS: CPT CODE: [id number] CT ABD PELVIS W/O CONT 17742 <Continued> Peritoneum/Other: No extraluminal air. No extraluminal [...] Katz M.D. CC: Alf Hope DO; Nika mccarthy MD; Gisel Eugene Technologist:Cassandra Anne, RT(R)(CT) CTDI: DLP: Trnscb Date/Time: 08/23/2020 (2048) [id number] Orig Print D/T: S: 08/23/2020 (2051) PAGE 2 Signed [id number] 16:58:00 Test Item Value Reference Range Interpretation Comments GLUBED (test code = 159 MG/DL 70-110 H Performe d by certified GLUBED) service operator at [facility] [id number] 11:58:00 Test Item Value Reference Range Interpretation Comments GLUBED (test code = 149 MG/DL 70-110 H Performe d by certified GLUBED) service operator at [facility] BASIC METABOLIC [id number] 08:00:00 Test Item Value Reference Range Interpretation [...] 9.9 mg/dL 8.0-10.5 N CA) CBC W/AUTO [id number] 07:08:00 Test Item Value Reference Range Interpretation [...] DIFF REQUIRED (test code NO = MDIFF) [id number] 05:21:00 Test Item Value Reference Range Interpretation Comments GLUBED (test code = 150 MG/DL 70-110 H Performe d by certified GLUBED) service operator at [facility] [id number] 21:13:00 Test Item Value Reference Range Interpretation Comments GLUBED (test code = 129 MG/DL 70-110 H Performe d by certified GLUBED) service operator at [facility] [id number] 16:48:00 Test Item Value Reference Range Interpretation Comments GLUBED (test code = 116 MG/DL 70-110 H Performe d by certified GLUBED) service operator at [facility] [id number] 12:18:00 Test Item Value Reference Range Interpretation Comments GLUBED (test code = 136 MG/DL 70-110 H Performe d by certified GLUBED) service operator at [facility] [id number] 12:18:00 Test Item Value Reference Range Interpretation Comments GLUBED (test code = 151 MG/DL 70-110 H Performe d by certified GLUBED) service operator at [facility] CBC W/AUTO [id number] 07:32:00 Test Item Value Reference Range Interpretation [...] (test code NO = MDIFF) BASIC METABOLIC [id number] 07:29:00 Test Item Value Reference Range Interpretation [...] code = 9.0 mg/dL 8.0-10.5 N CA) [id number] 05:19:00 Test Item Value Reference Range Interpretation Comments GLUBED (test code = 135 MG/DL 70-110 H Performe d by certified GLUBED) service operator at [facility] [id number] 20:31:00 Test Item Value Reference Range Interpretation Comments GLUBED (test code = 189 MG/DL 70-110 H Performe d by certified GLUBED) service operator at [facility] [id number] 17:41:00 Test Item Value Reference Range Interpretation Comments GLUBED (test code = 140 MG/DL 70-110 H Performe d by certified GLUBED) service operator at [facility] - CTA CHEST FOR [id number] 13:48:00 [facility] : 1960 Sex: M Name: FAITH VANCE [facility] : 1960 Age/S: 60 / M [address] Unit #: [id number] Loc: [place] [address] Phys: Gina Gonzalez [employer] Acct: [id number] Dis Date: Status: ADM IN PHONE #: [phone] Exam Date: 08/12/2020911 FAX #: [phone] Reason: CP, elevated D-dimerEXAMS: CPT CODE: [id number] [place] [address] PROCEDURE: CTA CHEST INDICATION: CP, elevated D-dimer; [...] include one or more of the following: -Automatedexposure control -Adjustment of the mA and/or kV [...] 1 Signed Report (CONTINUED) Name: FAITH VANCE [facility] : 1960 Age/S: 60 / M [address] [place], [place] [address] Unit #: [id number] Loc: [place] [address] Phys: Gina Gonzalez NP Acct: [id number] Dis Date: Status: ADM IN PHONE #: [phone] Exam Date: 08/12/2020911 FAX #: [phone] Reason: CP, elevated D-dimer EXAMS: CPT CODE: [id number] [place] [address] <Continued> contrast enhancement. No acute abnormality demonstrated. MUSCULOSKELETAL: Healed median sternotomy. No acute skeletal abnormality. IMPRESSION: 1. Negative for pulmonary embolic disease within limitations noted. 2. Atherosclerosis. 3. Coronary arterial calcifications with prior coronary arterial stents and CABG. 4. Interstitial edema. No consolidation. 5. Small bilateral pleural effusions. SL: [id number] at 1348 Reported and signed by: Christiano Piña M.D. CC: Johnie Montanez MD; Gina Gonzalez NP; Nika Martin MD Rosa hnologist:Kate Camacho RT(R)(CT) CTDI: DLP: Trnscb Date/Time: 08/12/2020 (1348) t.JOSE R.ANDREW Orig Print D/T: S: 08/12/2020 (1933) PAGE 2 Signed Report [id number] 11:38:00 Test Item Value Reference Range Interpretation Comments GLUBED (test code = 146 MG/DL 70-110 H Performe d by certified GLUBED) service operator at [facility] CBC W/AUTO [id number] 09:17:00 Test Item Value Reference Range Interpretation [...] (test code NO = MDIFF) BASIC METABOLIC [id number] 08:28:00 Test Item Value Reference Range Interpretation [...] code = 8.3 mg/dL 8.0-10.5 N CA) [id number] 08:28:00 Test Item Value Reference Range Interpretation Comments PHOSPHOROUS (test code = PHOS) 3.6 MG/DL 2.5-4.9 N [id number] 08:28:00 Test Item Value Reference Range Interpretation Comments MAGNESIUM (test code = MAG) 1.94 mg/dL 1.80-2.40 N [id number] 07:16:00 Test Item Value Reference Range Interpretation Comments GLUBED (test code = 170 MG/DL 70-110 H Performe d by certified GLUBED) service operator at [facility] [id number] 07:16:00 Test Item Value Reference Range Interpretation Comments GLUBED (test code = 137 MG/DL 70-110 H Performe d by certified GLUBED) service operator at [facility] [id number] 17:01:00 Test Item Value Reference Range Interpretation Comments GLUBED (test code = 88 MG/DL 70-110 N Performe d by certified GLUBED) service operator at [facility] [id number]-[id number] 16:56:00 Test Item Value Reference Range Interpretation Comments ACT-ISTAT (test code 186 SEC 74-137 H Perform ed by certified = ACTI) service operator at [facility] [id number] 15:03:00 Test Item Value Reference Range Interpretation Comments ACT-ISTAT (test code 235 SEC 74-137 H Perform ed by certified = ACTI) service operator at [facility] [id number] 11:33:00 Test Item Value Reference Range Interpretation Comments GLUBED (test code = 97 MG/DL 70-110 N Performe d by certified GLUBED) service operator at [facility] [id number] 06:54:00 Test Item Value Reference Range Interpretation Comments GLUBED (test code = 136 MG/DL 70-110 H Performe d by certified GLUBED) service operator at [facility] BASIC METABOLIC [id number] 06:00:00 Test Item Value Reference Range Interpretation [...] COMMENTS: To be done morning of Heart [id number] 06:00:00 Test Item Value Reference Range Interpretation Comments PHOSPHOROUS (test code = PHOS) 4.1 MG/DL 2.5-4.9 N COMMENTS: To be done morning of Heart [id number] 06:00:00 Test Item Value Reference Range Interpretation Comments MAGNESIUM (test code = MAG) 1.74 mg/dL 1.80-2.40 L COMMENTS: To be done morning of Heart CathTHROMBOPLASTIN TIME [id number] 05:55:00 Test Item Value Reference Range Interpretation Comments THROMBOPLASTIN TIME 37.9 Seconds 25.0-39.5 N Therape utic Range: PARTIAL (test code = 50.4 - 88.3 Seconds PTT) Effective 09/04/2018 CBC W/AUTO [id number] 05:44:00 Test Item Value Reference Range Interpretation [...] COMMENTS: To be done morning of Heart [id number] 05:44:00 Test Item Value Reference Range Interpretation Comments GLUBED (test code = 92 MG/DL 70-110 N Performe d by certified GLUBED) service operator at [facility] HGBA1C%[id number] 17:22:00 Test Item Value Reference Range Interpretation Comments HGBA1C% (test code = HGBA1C%) 6.6 %A1C 4.8-6.0 H [id number] 17:17:00 Test Item Value Reference Range Interpretation Comments GLUBED (test code = 118 MG/DL 70-110 H Performe d by certified GLUBED) service operator at [facility] TSH REFLEX TO [id number] 15:37:00 Test Item Value Reference Range Interpretation Comments TSH REFLEX TO FT4 (test code = 3.19 IU/mL 0.42-5.47 N TSHREFLEX) [id number] 15:37:00 Test Item Value Reference Range Interpretation [...] y by method. COVID 19 Asymptomatic IH [id number] 11:35:00 Test Item Value Reference Range Interpretation [...] y tests. COMMENTS: If not done this [id number]-[id number] 11:31:00 Test Item Value Reference Range Interpretation [...] titative results may babak y by method. [id number] 11:28:00 Test Item Value Reference Range Interpretation [...] to interpret this result as normal/abnormal . [id number] 10:48:00 Test Item Value Reference Range Interpretation Comments GLUBED (test code = 158 MG/DL 70-110 H Performe d by certified GLUBED) service operator at [facility] B-TYPE NATRIURETIC [id number] 08:19:00 Test Item Value Reference Range Interpretation Comments B-TYPE NATRIURETIC PEPTIDE (test 508.0 PG/ML 0-100 H code = BNP) BASIC METABOLIC [id number] 08:11:00 Test Item Value Reference Range Interpretation [...] 9.1 mg/dL 8.0-10.5 N CA) HEPATIC FUNCTION [id number] 08:11:00 Test Item Value Reference Range Interpretation [...] 174 IUnit/L 20-125 H code = ALKP) [id number] 08:11:00 Test Item Value Reference Range Interpretation Comments MAGNESIUM (test code = MAG) 1.80 mg/dL 1.80-2.40 N [id number] 08:11:00 Test Item Value Reference Range Interpretation [...] may babak y by method. BASIC METABOLIC [id number] 08:09:00 Test Item Value Reference Range Interpretation [...] code = CA) mg/dL 8.0-10.5 HEPATIC FUNCTION [id number] 08:09:00 Test Item Value Reference Range Interpretation Comments TOTAL PROTEIN (test code = PROT) g/dL 6.4-8.2 ALBUMIN (test code = ALB) g/dL 3.4-5.0 BILIRUBIN TOTAL (test code = BILT) mg/dL 0.0-1.0 BILIRUBIN DIRECT (test code = BILD) MG/DL 0.0-0.30 SGOT/AST (test code = AST) IUnit/L 15-37 SGPT/ALT (test code = ALT) IUnit/L 30-65 ALKALINE PHOSPHATASE TOTAL (test IUnit/L 20-125 code = ALKP) [id number] 08:09:00 Test Item Value Reference Range Interpretation Comments MAGNESIUM (test code = MAG) mg/dL 1.80-2.40 [id number] 08:09:00 Test Item Value Reference Range Interpretation [...] results may babak y by method. PROTHROMBIN [id number] 08:06:00 Test Item Value Reference Range Interpretation [...] (to prevent recurrent infar ct). THROMBOPLASTIN TIME [id number] 08:06:00 Test Item Value Reference Range Interpretation Comments THROMBOPLASTIN TIME 44.5 Seconds 25.0-39.5 H Therape utic Range: PARTIAL (test code = 50.4 - 88.3 Seconds PTT) Effective 09/04/2018 CBC W/AUTO [id number] 07:58:00 Test Item Value Reference Range Interpretation [...] NO = MDIFF) - XR CHEST 1 [id number] 07:57:00 [facility] : 1960 Sex: M FAX: Todd Jacobo MD [phone] [place]: St: REG FAX: Martínez Dash NP [phone] Name: FAITH VANCE [facility] [place] : 1960 Age/S: 60/M [address] [place] [address] Unit #: [id number] Loc: [place] [address] Phys: Martínez Dash NP Acct: [id number] Dis Date: Status: REG ER PHONE #: [phone] Exam Date: 08/10/2020 [facility] FAX #: [phone] Reason: Chest Pain EXAMS: CPT CODE: [id number] XR CHEST 1 [id number] Chest single view 08/10/2020 HISTORY: Chest pain. Comparison is made to 05/21/2018 FINDINGS: Pacemaker and midline sternotomy wires are stable. The lungs are hypoinflated. No consolidation or pleural effusion is present. No vascular congestion or interstitial edema is present. Heart size is mildly enlarged. Aorta is unchanged. IMPRESSION: Hypoinflated lungs. No acute cardiopulmonary process. SL:[id number] at 0757 Reported and signed by: Khai Kruse M.D. CC: Todd Jacobo MD; Martínez Dash NP Technologist: RT Ann(R) Trnscrd Date/Time/By: 08/10/2020 (0757) : By: [email or web address] Orig Print D/T: S: 08/10/2020 (2868) PAGE 1 Signed Report COMPREHENSIVE METABOLIC [id number] 18:02:00 Test Item Value Reference Range Interpretation [...] 50-136 H TOTAL (test code = ALKP) [id number] 18:02:00 Test Item Value Reference Range Interpretation Comments AMYLASE (test code = SERGIO) 82 Unit/L 25-115 N [id number] 18:02:00 Test Item Value Reference Range Interpretation Comments LIPASE (test code = LIP) 185 Unit/L 114-286 N COMPREHENSIVE METABOLIC [id number] 17:56:00 Test Item Value Reference Range Interpretation [...] TOTAL Unit/L 50-136 (test code = ALKP) [id number] 17:56:00 Test Item Value Reference Range Interpretation Comments AMYLASE (test code = SERGIO) Unit/L 25-115 [id number] 17:56:00 Test Item Value Reference Range Interpretation Comments LIPASE (test code = LIP) 185 Unit/L 114-286 N CBC W/AUTO [id number] 17:46:00 Test Item Value Reference Range Interpretation [...] CRITERIA MDIFF) - CT ABD PELVIS W/O [id number] 17:46:00 Name: FAITH VANCE [facility] : 1960 Age/S: 58 / M [address] Unit #: [id number] Loc: [place] [address] Phys: Nila Chester MD Acct: [id number] Dis Date: Status: REGER PHONE #: [phone] Exam Date: 01/03/2019 1730 FAX #: Reason: llq EXAMS: CPT: [id number] CT ABDPELVIS W/O CONT 46139 Location of dictation: B2 CT abdomen and pelvis without contrast CLINICAL INDICATION: Left lower quadrant pain x4 months Comments: Volumetric data acquisition through the pelviswithout intravenous contrast reconstructed as contiguous axial volume, [...] no focal findings or changes. IMPRESSION: 1. Com parison made to 09/14/2017. No acute findings or changes in the abdomen or pelvis. 2. Status post cholecystectomy. PAGE 1 Signed Report (CONTINUED) Name: [facility] [place] : 1960 Age/S: 58 / M [address] [facility] [address] Unit #: [id number] Loc: [place] [address] Phys: Nila Chester Acct: [id number] Dis Date: Status: REG ER PHONE #: [phone] Exam Date: 01/03/2019 1730 FAX #: Reason: llq EXAMS: CPT: [id number] CT ABD PELVIS W/O CONT 50458 <Continued> at 1565 Reported and signed by: Renuka Willett M.D. CC: Nila Chester MD Technologist:Tavon Jurado, RT(R)(CT)(MRI) CTDI: DLP: Trnscb Date/Time: 01/03/2019 (3056) t.SDR.PXC Orig Print D/T: S: 01/03/2019 (1118) PAGE 2 Signed ReportBedside [id number] 11:47:00 Test Item Value Reference Range Interpretation Comments Bedside Glucose (test code = 26015-8) 155 70-120 H Meter ID: [id number] [facility] Hospitalodium Ffnec9906-30-83 08:31:00 Test Item Value Reference Range Interpretation Comments Sodium Level (test code = 2951-2) 139 136-145 [facility] [id number] 08:31:00 Test Item Value Reference Range Interpretation Comments Potassium Level (test code = 2823-3) 4.0 3.5-5.1 [facility] HospitalChloride [id number] 08:31:00 Test Item Value Reference Range Interpretation Comments Chloride Level (test code = 2075-0) 106 98-107 [facility] HospitalCarbon Dioxide [id number] 08:31:00 Test Item Value Reference Range Interpretation Comments Carbon Dioxide Level (test code = 8-9) [facility] HospitalAnion [id number] 08:31:00 Test Item Value Reference Range Interpretation Comments Anion Gap (test code = 09681-7) 12.0 8-16 [facility] HospitalBlood Urea Jwoacmrp8441-45-75 08:31:00 Test Item Value Reference Range Interpretation Comments Blood Urea Nitrogen (test code = 12-14 3094-0) [facility] HospitalCreatinine2018-06-08 08:31:00 Test Item Value Reference Range Interpretation Comments Creatinine (test code = 2160-0) 0.72 0.72-1.25 [facility] HospitalBUN/Creatinine Nlmul1442-64-47 08:31:00 Test Item Value Reference Range Interpretation Comments BUN/Creatinine Ratio (test code = 11-13 3097-3) [facility] HospitalEstimat Glomerular Filtration [id number] 08:31:00 Test Item Value Reference Range Interpretation Comments Estimat Glomerular Filtration Rate 60- >60 (test code = 40565-2) Ranges were taken from the National Kidney Disease Education Program and the National Kidney Foundation literature.Reference ranges:60 or greater: Fkkcom12- 59 (for 3 consecutive months): Chronic kidneydisease 15 or less: Kidney failure [facility] HospitalGlucose Nxhrd8869-82-70 08:31:00 Test Item Value Reference Range Interpretation Comments Glucose Level (test code = VCP6265) 195 74-118 H [facility] HospitalCalcium Ggnzx5563-50-22 08:31:00 Test Item Value Reference Range Interpretation Comments Calcium Level (test code = 32620-9) 9.0 8.4-10.2 [facility] HospitalWhite Blood Rrjhv7700-08-16 08:12:00 Test Item Value Reference Range Interpretation Comments White Blood Count (test code = 6690-2) 6.06 4.8-10.8 [facility] HospitalRed Blood Ujxzo4843-92-95 08:12:00 Test Item Value Reference Range Interpretation Comments Red Blood Count (test code = 789-8) 4.22 4.3-5.7 L [facility] HospitalHemoglobin2018-06-08 08:12:00 Test Item Value Reference Range Interpretation Comments Hemoglobin (test code = 22251-5) 12.5 14.0-18.0 L [facility] HospitalHematocrit2018-06-08 08:12:00 Test Item Value Reference Range Interpretation Comments Hematocrit (test code = 4544-3) 36.2 38.2-49.6 L [facility] HospitalMean Corpuscular Qtrknp5671-69-75 08:12:00 Test Item Value Reference Range Interpretation Comments Mean Corpuscular Volume (test code = 85.8 81-99 787-2) [facility] HospitalMean Corpuscular Jexhsmywig8562-30-57 08:12:00 Test Item Value Reference Range Interpretation Comments Mean Corpuscular Hemoglobin (test code 29.6 28-32 = 785-6) [facility] HospitalMean Corpuscular Hemoglobin Bnsjmse9829-38-96 08:12:00 Test Item Value Reference Range Interpretation Comments Mean Corpuscular Hemoglobin Concent 34.5 31-35 (test code = 786-4) [facility] HospitalRed Cell Distribution Ayyrn5210-63-39 08:12:00 Test Item Value Reference Range Interpretation Comments Red Cell Distribution Width (test code 14.2 11.7-14.4 = 00205-3) [facility] HospitalPlatelet Uqgka0991-28-60 08:12:00 Test Item Value Reference Range Interpretation Comments Platelet Count (test code = 777-3) 263 140-360 [facility] HospitalNeutrophils (%) (Auto)2017-10-27 08:12:00 Test Item Value Reference Range Interpretation Comments Neutrophils (%) (Auto) (test code = 51.2 38.7-80.0 60055-3) [facility] HospitalLymphocytes (%) (Auto)2017-10-27 08:12:00 Test Item Value Reference Range Interpretation Comments Lymphocytes (%) (Auto) (test code = 33.7 18.0-39.1 736-9) [facility] HospitalMonocytes (%) (Auto)2017-10-27 08:12:00 Test Item Value Reference Range Interpretation Comments Monocytes (%) (Auto) (test code = 9.1 4.4-11.3 5905-5) [facility] HospitalEosinophils (%) (Auto)2017-10-27 08:12:00 Test Item Value Reference Range Interpretation Comments Eosinophils (%) (Auto) (test code = 4.8 0.0-6.0 713-8) [facility] HospitalBasophils (%) (Auto)2017-10-27 08:12:00 Test Item Value Reference Range Interpretation Comments Basophils (%) (Auto) (test code = 0.7 0.0-1.0 706-2) [facility] HospitalIM GRANULOCYTES %2017-10-27 08:12:00 Test Item Value Reference Range Interpretation Comments IM GRANULOCYTES % (test code = IM 0.5 0.0-1.0 GRANULOCYTES %) [facility] HospitalNeutrophils # (Auto)2017-10-27 08:12:00 Test Item Value Reference Range Interpretation Comments Neutrophils # (Auto) (test code = 3.1 2.1-6.9 751-8) [facility] HospitalLymphocytes # (Auto)2017-10-27 08:12:00 Test Item Value Reference Range Interpretation Comments Lymphocytes # (Auto) (test code = 2.0 1.0-3.2 17886-6) [facility] HospitalMonocytes # (Auto)2017-10-27 08:12:00 Test Item Value Reference Range Interpretation Comments Monocytes # (Auto) (test code = 742-7) 0.6 0.2-0.8 [facility] HospitalEosinophils # (Auto)2017-10-27 08:12:00 Test Item Value Reference Range Interpretation Comments Eosinophils # (Auto) (test code = 0.3 0.0-0.4 711-2) [facility] HospitalBasophils # (Auto)2017-10-27 08:12:00 Test Item Value Reference Range Interpretation Comments Basophils # (Auto) (test code = 704-7) 0.0 0.0-0.1 [facility] HospitalAbsolute Immature Granulocyte (ehlx2152-91-90 08:12:00 Test Item Value Reference Range Interpretation Comments Absolute Immature Granulocyte (auto 0.03 0-0.1 (test code = Absolute Immature Granulocyte (auto) [facility] HospitalCreatine Kinase [id number] 15:14:00 Test Item Value Reference Range Interpretation Comments Creatine Kinase MB (test code = 3.90 0-5.0 27001-5) [facility] HospitalTroponin [id number] 15:14:00 Test Item Value Reference Range Interpretation Comments Troponin I (test code = MWP1075) 0.054 0-0.300 [facility] HospitalCreatine Jswzwc4561-94-83 15:07:00 Test Item Value Reference Range Interpretation Comments Creatine Kinase (test code = 2157-6) 297 30-200 H [facility] HospitalHemoglobin A1c Ohewrws7859-95-84 08:04:00 Test Item Value Reference Range Interpretation Comments Hemoglobin A1c Percent (test code = 12.6 4.0-7.0 H Hemoglobin A1c Percent) [facility] HospitalTriglycerides Ehmcc2325-49-97 06:57:00 Test Item Value Reference Range Interpretation Comments Triglycerides Level (test code = 200 0-149 H 2571-8) [facility] HospitalCholesterol Zedav7925-69-12 06:57:00 Test Item Value Reference Range Interpretation Comments Cholesterol Level (test code = 2093-3) 239 0-199 H Less than 200 mg/dL Low Wcla108 - 239 mg/dL Borderline Ydrd890 mg/dl and greater High RiskHill Country Memorial HospitalLDL Knpduwkisse4260-98-94 06:57:00 Test Item Value Reference Range Interpretation Comments LDL Cholesterol (test code = 2089-1) 164 60-130 H [facility] HospitalHDL Qiqdkpxarrb1468-50-24 06:57:00 Test Item Value Reference Range Interpretation Comments HDL Cholesterol (test code = 2085-9) 35 40-60 L [facility] HospitalCholesterol/HDL Fomej9481-30-15 06:57:00 Test Item Value Reference Range Interpretation Comments Cholesterol/HDL Ratio (test code = 6.8 3.9-4.7 H 9830-1) [facility] HospitalUrine Opiates Xdmoqw2362-31-41 16:18:00 Test Item Value Reference Range Interpretation Comments Urine Opiates Screen (test code = NEGATIVE NEGATIVE 35660-8) [facility] HospitalUrine Barbiturates Aisyxy1869-27-06 16:18:00 Test Item Value Reference Range Interpretation Comments Urine Barbiturates Screen (test code NEGATIVE NEGATIVE = 776221048) [facility] HospitalUrine Phencyclidine Mkunlz7875-55-05 16:18:00 Test Item Value Reference Range Interpretation Comments Urine Phencyclidine Screen (test NEGATIVE NEGATIVE code = 71908-9) [facility] HospitalUrine Amphetamines Jbnhjm5323-84-46 16:18:00 Test Item Value Reference Range Interpretation Comments Urine Amphetamines Screen (test code NEGATIVE NEGATIVE = 21364-8) [facility] HospitalUrine Methamphetamines Pmfnxo4252-40-81 16:18:00 Test Item Value Reference Range Interpretation Comments Urine Methamphetamines Screen (test NEGATIVE NEGATIVE code = Urine Methamphetamines Screen) [facility] HospitalUrine Benzodiazepines Cirjbj7384-37-80 16:18:00 Test Item Value Reference Range Interpretation Comments Urine Benzodiazepines Screen (test NEGATIVE NEGATIVE code = 72765-9) [facility] HospitalUrine Cocaine Ipvjtn7100-67-89 16:18:00 Test Item Value Reference Range Interpretation Comments Urine Cocaine Screen (test code = NEGATIVE NEGATIVE 3398-5) [facility] HospitalUrine Cannabinoids Qrekbl4090-59-42 16:18:00 Test Item Value Reference Range Interpretation Comments Urine Cannabinoids Screen (test code NEGATIVE NEGATIVE = 85082-2) THESE RESULTS ARE FOR MEDICAL TREATMENT ONLYTHIS REPORT CONTAINS UNCONFIRMED SCREENING RESULTS*POSITIVE RESULTS WILL BE CONFIRMED BY REFERENCE LAB UPON REQUEST CUT-OFFDRUG CLASS CONCENTRATION ng/mLAmphetamines 1000Methamphetamines 1000Cocaine 300Opiate 300Phencyclidine 25Cannabinoid 50Barbiturates 300Benzodiazepine 300Methadone 300[facility] HospitalUrine Methadone Gprxbc9608-83-79 16:18:00 Test Item Value Reference Range Interpretation Comments Urine Methadone Screen (test code = NEGATIVE NEGATIVE 62792-2) THESE RESULTS ARE FOR MEDICAL TREATMENT ONLYTHIS REPORT CONTAINS UNCONFIRMED SCREENING RESULTS*POSITIVE RESULTS WILL BE CONFIRMED BY REFERENCE LAB UPON REQUEST CUT-OFFDRUG CLASS CONCENTRATION ng/mLAmphetamines 1000Methamphetamines 1000Cocaine Metabolite 300Opiate 300Phencyclidine 45Xbkwwmkrlbj45Cjkxwuykazls 300Benzodiazepine 300Methadone 300[facility] HospitalProthrombin Nhbw7222-15-92 14:13:00 Test Item Value Reference Range Interpretation Comments Prothrombin Time (test code = 5902-2) 13.6 11.9-14.5 [facility] HospitalProthromb Time International Jnpgx9958-00-44 14:13:00 Test Item Value Reference Range Interpretation Comments Prothromb Time International Ratio 1.13 (test code = 6301-6) Oral Anticoagulant Therapy INR Values:1. Low Intensity Therapy 1.5 - 2.02. Moderate Intensity Therapy 2.0 - 3.03. High Intensity Therapy(1) 2.5 - 3.54. High Intensity Therapy(2) 3.0 - 4.05. Panic ValueINR > 5.0[facility] HospitalActivated Partial Thromboplast Xgqg7879-50-30 14:13:00 Test Item Value Reference Range Interpretation Comments Activated Partial Thromboplast Time 27.6 23.8-35.5 (test code = 49978-7) [facility] HospitalGlobulin2018-06-04 14:10:00 Test Item Value Reference Range Interpretation Comments Globulin (test code = 48628-4) 3.3 2.3-3.5 [facility] HospitalAlbumin/Globulin Pmhsy5732-92-70 14:10:00 Test Item Value Reference Range Interpretation Comments Albumin/Globulin Ratio (test code = 1.2 0.8-2.0 1759-0) [facility] HospitalAlkaline Oaigdkxsjae5221-32-45 14:10:00 Test Item Value Reference Range Interpretation Comments Alkaline Phosphatase (test code = 109 40-150 6768-6) [facility]tic Uxohpap2468-84-76 14:10:00 Test Item Value Reference Range Interpretation Comments B-Type Natriuretic Peptide (test code = 92.8 0-100 41226-6) [facility] HospitalAmylase Yzopu0677-02-70 14:10:00 Test Item Value Reference Range Interpretation Comments Amylase Level (test code = 1798-8) 126 25-125 H [facility] HospitalLipase2018-06-04 14:10:00 Test Item Value Reference Range Interpretation Comments Lipase (test code = 3040-3) 98 8-78 H [facility] HospitalTotal Todpkncrr7437-59-89 14:10:00 Test Item Value Reference Range Interpretation Comments Total Bilirubin (test code = 1975-2) 0.6 0.2-1.2 [facility] HospitalAspartate Amino Transf (AST/SGOT)2017-10-23 14:10:00 Test Item Value Reference Range Interpretation Comments Aspartate Amino Transf (AST/SGOT) (test 36 5-34 H code = Aspartate Amino Transf (AST/SGOT)) [facility] HospitalAlanine Aminotransferase (ALT/SGPT)2017-10-23 14:10:00 Test Item Value Reference Range Interpretation Comments Alanine Aminotransferase (ALT/SGPT) 34 0-55 (test code = 1742-6) [facility] HospitalTotal Wsjzfbt8923-81-56 14:10:00 Test Item Value Reference Range Interpretation Comments Total Protein (test code = 2885-2) 7.3 6.5-8.1 [facility] HospitalAlbumin2018-06-04 14:10:00 Test Item Value Reference Range Interpretation Comments Albumin (test code = 1751-7) 4.0 3.5-5.0 [facility] HospitalD-Dimer Quantitative (PE/DVT)2017-10-23 14:02:00 Test Item Value Reference Range Interpretation Comments D-Dimer Quantitative (PE/DVT) (test 0.49 0.00-0.45 H code = 40495-6) [facility] HospitalDirect Ymhueomby6365-11-10 13:47:00 Test Item Value Reference Range Interpretation Comments Direct Bilirubin (test code = 57642-0) 0.2 0.0-5.0 [facility] HospitalMagnesium Abren6314-68-04 06:52:00 Test Item Value Reference Range Interpretation Comments Magnesium Level (test code = 91044-0) 1.5 1.3-2.1 [facility] HospitalUrine ATK3035-95-01 05:09:00 Test Item Value Reference Range Interpretation Comments Urine WBC (test code = 5821-4) NONE 0-5 [facility] Hospital[facility] VJM2487-52-37 05:09:00 Test Item Value Reference Range Interpretation Comments Urine RBC (test code = 11712-3) NONE 0-5 [facility] Hospital[facility] Miqeztbg7649-80-49 05:09:00 Test Item Value Reference Range Interpretation Comments Urine Bacteria (test code = 10831-6) NONE NONE [facility] HospitalU[facility] Epithelial Vpvxx0875-95-97 05:09:00 Test Item Value Reference Range Interpretation Comments Urine Epithelial Cells (test code = NONE NONE 69389-7) [facility] HospitalU[facility] Brhem3152-49-15 04:46:00 Test Item Value Reference Range Interpretation Comments Urine Color (test code = 5778-6) YELLOW YELLOW [facility] Hospital[facility] Cwgxtxe8113-58-74 04:46:00 Test Item Value Reference Range Interpretation Comments Urine Clarity (test code = 89839-4) CLEAR CLEAR [facility] HospitalU[facility] Specific Iwenizo2862-01-44 04:46:00 Test Item Value Reference Range Interpretation Comments Urine Specific Eagle (test code = 1.010 1.010-1.025 5811-5) [facility] HospitalU[facility] eO1354-11-95 04:46:00 Test Item Value Reference Range Interpretation Comments Urine pH (test code = 76685-5) 8 5-7 H [facility] Leukocyte Ajeadhrg2141-68-43 04:46:00 Test Item Value Reference Range Interpretation Comments Urine Leukocyte Esterase (test code NEGATIVE NEGATIVE = 5799-2) [facility] HospitalU[facility] Srhcprn1545-48-95 04:46:00 Test Item Value Reference Range Interpretation Comments Urine Nitrite (test code = 04096-9) NEGATIVE NEGATIVE [facility] HospitalU[facility] Izsooka0123-27-03 04:46:00 Test Item Value Reference Range Interpretation Comments Urine Protein (test code = 5804-0) NEGATIVE NEGATIVE [facility] Hospital[facility] Glucose (UA)2017-03-05 04:46:00 Test Item Value Reference Range Interpretation Comments Urine Glucose (UA) (test code = NEGATIVE NEGATIVE 2349-9) [facility] Hospital[facility] Ysxlsov1319-17-17 04:46:00 Test Item Value Reference Range Interpretation Comments Urine Ketones (test code = 34773-8) NEGATIVE NEGATIVE [facility] Hospital[facility] Ytixsgnkhkkt4893-45-12 04:46:00 Test Item Value Reference Range Interpretation Comments Urine Urobilinogen (test code = 0.2 0.2-1 46015-8) [facility] HospitalU[facility] Cuoopevlv8476-33-74 04:46:00 Test Item Value Reference Range Interpretation Comments Urine Bilirubin (test code = 1978-6) NEGATIVE NEGATIVE [facility] HospitalU[facility] Vfukj6418-44-44 04:46:00 Test Item Value Reference Range Interpretation Comments Urine Blood (test code = 54873-7) 2+ NEGATIVE H [facility] [address] [place] [address] PatientName: FAITH VANCE MR #: [id number] : 1960 Age/Sex: 57/M Req #: [id number] Adm Physician: ALEXIS COX MD Ordered by: ALEXIS COX MD Report #: [id number] Location: [facility] Room/Bed: [place] [address] Procedure: [id number] CT/CTA BRAIN Exam Date: 10/24/17 Exam Time: [...] PM Dictated By: ANA MARIA ARTEAGA MD 2939 Transcribed By: ANDREE on 10/24/17 2834 COPY TO: ALEXIS COX MDCT BRAIN WO [facility] [address] [address] PatientName: FAITH VANCE MR #: [id number] : 1960 Age/Sex: 57/M Req #: [id number] Adm Physician: Ordered by: KHAI WAHL MD Report #: [id number] Location: ER Room/Bed: __ Procedure: [id number] CT/CT BRAIN WO Exam Date: 10/23/17 Exam [...] PM Dictated By: ANA MARIA ARTEAGA MD 7395 Transcribed By: ANDREE on 10/23/17 1643 COPY TO: KHAI WAHL V MDCTA CHEST [place] [address] PatientName: FAITH VANCE MR #: [id number] : 1960 Age/Sex: 57/M Req #: [id number] Adm Physician: Ordered by: KHAI WAHL MD Report #: [id number] Location: ER Room/Bed: __ Procedure: [id number] CT/CTA CHEST Exam Date: 10/23/17 Exam Time: [...] 10/23/17 1621 COPY TO: KHAI WAHL V [facility] SINGLE (PORTABLE) [place] [address] PatientName: FAITH VANCE MR #: [id number] : 1960 Age/Sex: 57/M Req #: [id number] Adm Physician: Ordered by: KHAI WAHL MD Report #: [id number] Location: ER Room/Bed: __ Procedure: [id number] DX/CHEST SINGLE (PORTABLE) Exam Date: 10/23/17 Exam [...] TO: KHAI WAHL V MDCT BRAIN WO [place] [address] Patient Name: FAITH VANCE MR #: [id number] : 1960 Age/Sex: 56/M Req #: [id number] Adm Physician: Ordered by: JACQUELYN MONTES DE OCA MD Report #: [id number] Location: ER Room/Bed: Procedure: [id number] CT/CT BRAIN WO Exam Date: Exam Time: [...] No acute hemorrhage, mass or acute major vasc ular territorial infarct. Arteries: No density suggestive of thrombosis. Dural sinuses: No abnormal density suggestive of thrombosis. Ventricles: No hydrocephalus or displacement. Extra-axial spaces: No abnormal density. Brain volume: Normal for age. Craniocervical junction: No mass, Chiari malformation, or basilar invagination. Sella: No mass. Paranasal/mastoid sinuses: Mild mucosal thickening in right maxillary sinus. IMPRESSION: No intracranial abnormality. Signed by: Dr. Brett Jean M.D. on04/04/2017 2:02 AM Dictated By: BRETT JEAN MD 1 Transcribed By: ANDREE on 04/04/17201 COPY TO: JACQUELYN MONTES DE OCA MDCT CERVICAL SPINE WO [place] [address] PatientName: FAITH VANCE MR #: [id number] : 1960 Age/Sex: 56/M Req #: [id number] Adm Physician: Ordered by: JACQUELYN MONTES DE OCA MD Report #: [id number] Location: ER Room/Bed: Procedure: [id number] CT/CT CERVICAL SPINE WO Exam Date: Exam [...] 04/04/17206 COPY TO: JACQUELYN MONTES DE OCA [facility] SINGLE (PORTABLE) [place] [address] PatientName: FAITH VANCE MR #: [id number] : 1960 Age/Sex: 56/M Req #: [id number] Adm Physician: Ordered by: JACQUELYN MONTES DE OCA MD Report #: [id number] Location: ER Room/Bed: Procedure: [id number] DX/CHEST SINGLE (PORTABLE) Exam Date: 04/04/17 Exam [...] seen on portable view. Signed by: Dr aMrco A Talbot MD on 04/04/2017 2:12 AM Dictated By: MARCO A TALBOT MD 1 Transcribed By: ANDREE on 04/04/17211 COPY TO: JACQUELYN MONTES DE OCA MDHIP RIGHT 2-3 VW (+/- PELVIS) [place] [address] PatientName: FAITH VANCE MR #: [id number] : 1960 Age/Sex: 56/M Req #: [id number] Adm Physician: Ordered by: JACQUELYN MONTES DE OCA MD Report #: [id number] Location: ER Room/Bed: Procedure: [id number] DX/HIP RIGHT 2-3 VW (+/- PELVIS) Exam [...] DE OCA MDSP LUMBAR, COMPLETE MIN 4VW [place] [address] PatientName: FAIHT VANCE MR #: [id number] : 1960 Age/Sex: 56/M Req #: [id number] Adm Physician: Ordered by: JACQUELYN MONTES DE OCA MD Report #: [id number] Location: ER Room/Bed: Procedure: [id number] DX/SP LUMBAR, COMPLETE MIN 4VW Exam Date: 04/04/17 Exam Time: 0108 REPORT STATUS: Signed SP LUMBAR, COMPLETE MIN 4VW Comparison: CT 08/10/2016 Clinical history: Status post fall with lowerback pain Findings: Postoperative changes from posterior fusion from left L4 vertebral body to L5-F8jvzgye and posterior decompression. No evidence of hardware [...] TO: JACQUELYN MONTES DE OCA MD ABDOMEN [place] [address] PatientName: FAITH VANCE MR #: [id number] : 1960 Age/Sex: 56/M Req #: [id number] Adm Physician: NICHELLE PALACIOS MD Ordered by: SCOTT AMIN MD Report #: [id number] Location: [facility] Room/Bed: [place] [address] Procedure: [id number] US/US ABDOMEN COMPLETE Exam Date: 03/08/17 Exam [...] BROOKE SAMPSON MD 1040 COPY TO: [facility] ([facility] [place] [address] PatientName: FAITH VANCE MR #: [id number] : 1960 Age/Sex: 56/M Req #: [id number] Adm Physician: Ordered by: JACQUELYN MONTES DE OCA MD Report #: [id number] Location: ER Room/Bed: Procedure: [id number] DX/CHEST SINGLE (PORTABLE) Exam Date: 03/05/17 Exam [...]
[2022-07-05 05:56] LABS: Hematocrit 33.9 % (39.6-49.0); Lymphocytes % 16.8 % (15.3-44.8); MCV 83.1 fL (80-100); MPV 7.4 fL (7.6-11.3); RBC Red Blood Cell Count 4.08 M/uL (4.33-5.43)
[2022-07-05 05:57] LABS: Protime INR 1.37
[2022-07-05 06:11] LABS: Barbiturates NEGATIVE (NEGATIVE); Benzodiazepines NEGATIVE (NEGATIVE); Cocaine NEGATIVE (NEGATIVE); METHAMPHETAM NEGATIVE (NEGATIVE); Methadone NEGATIVE (NEGATIVE); Opiates NEGATIVE (NEGATIVE); Phencyclidine NEGATIVE (NEGATIVE); THC Cannibis NEGATIVE (NEGATIVE)
[2022-07-05 06:19] LABS: Albumin 2.4 g/dL (3.4-5.0); Bilirubin Direct 0.3 mg/dL (0-0.2); Bilirubin Total 0.6 mg/dL (0.2-1.0); Potassium 4.3 mmol/L (3.5-5.1); Protein, Total 6.4 g/dL (6.4-8.2)
[2022-07-05] MEDS ORDERED: FUROSEMIDE 40 MG/4 ML VIAL ONE (06:46)
[2022-07-05] MEDS ORDERED: MORPHINE 4 MG/ML SYR ONE (06:46)
[2022-07-05] MEDS ORDERED: ONDANSETRON 4 MG/2 ML VIAL ONE (06:46)
[2022-07-05] MEDS ORDERED: METOPROLOL TAR 50 MG TAB ONE (06:46)
--- NOTE | 2022-07-05 07:17 | ER ---
Nurse's Notes [facility] Name: Ernie Rooney Age: 62 yrs Sex: Male : 1960 Arrival Date: 07/05/2022 Time: 05:21 Bed 5 Private MD: Diagnosis: Chest pain, unspecified;Unspecified combined systolic (congestive) and diastolic (congestive) heart failure;Type 2 diabetes mellitus with hyperglycemia Presentation: 07/05 05:21 Chief complaint: Patient states: stabbing chest pain that goes into my back and neck. lg3 324mg ASA administered by EMS prior to arrival. Coronavirus screen: Client denies travel out of the [place] in the last 14 days. At this time, the client does not indicate any symptoms associated with coronavirus-19. Ebola Screen: No symptoms or risks identified at this time. Initial Sepsis Screen: Does the patient meet any 2 criteria? No. Patient's initial sepsis screen is negative. Does the patient have a suspected source of infection? No. Patient's initial sepsis screen is negative. Risk Assessment: Do you want to hurt yourself or someone else? Patient reports no desire to harm self or others. Onset of symptoms was July 05, 2022. 05:21 Method Of Arrival: EMS: [facility] lg3 05:21 Acuity: TONE 3 lg3 Triage Assessment: 05:22 General: Appears in no apparent distress. comfortable, Behavior is cooperative, fussy. lg3 Pain: Complains of pain in chest Pain radiates to back Quality of pain is described as stabbing. EENT: No deficits noted. No signs and/or symptoms were reported regarding the EENT system. Neuro: No deficits noted. Naidu Agitation-Sedation Scale (RASS): +1 Restless Level of Consciousness is awake, alert, obeys commands, Oriented to person, place, time, situation. Cardiovascular: Capillary refill < 3 seconds Clubbing of nail beds is absent JVD is absent Patient's skin is warm and dry. Chest pain is described as diffuse, radiates back neck. Respiratory: No deficits noted. Airway is patent Trachea midline Respiratory effort is even, unlabored, Respiratory pattern is regular, symmetrical. GI: No deficits noted. No signs and/or symptoms were reported involving the gastrointestinal system. Abdomen is round non-distended. : No deficits noted. No signs and/or symptoms were reported regarding the genitourinary system. Derm: No deficits noted. No signs and/or symptoms reported regarding the dermatologic system. Skin is intact, is healthy with good turgor, Skin is dry, Skin is normal, Skin temperature is warm. Musculoskeletal: No deficits noted. No signs and/or symptoms reported regarding the musculoskeletal system. 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 Circulation, motion, and sensation intact. Range of motion: intact in all extremities. Historical: - Allergies: 05:22 Nitroglycerin; lg3 - PMHx: 05:22 Arthritis; Back pain; CAD; CHF; CVA; Depression; Diabetes - NIDDM; Fibromyalgia; GERD; lg3 Hyperlipidemia; Hypertensive disorder; Hypothyroidism; Left sided weakness from previous CVA; Myocardial infarction; Pacemaker; - PSHx: 05:22 bilat BKA's; bypass; CABG; lg3 - Immunization history:: Adult Immunizations up to date, Client reports receiving the 2nd dose of the Covid vaccine, Flu vaccine is up to date. - Social history:: Smoking status: Patient denies any tobacco usage or history of. Patient/guardian denies using alcohol, street drugs. - Family history:: not pertinent. Screenin:55 [facility] ED Fall Risk Assessment (Adult) History of falling in the last 3 months, vc1 including since admission No falls in past 3 months (0 pts) Confusion or Disorientation No (0 pts) Intoxicated or Sedated Yes (3 pts) Impaired Gait No (0 pts) Mobility Assist Device Used No (0 pt) Altered Elimination No (0 pt) Score/Fall Risk Level 0 - 2 = Low Risk Oriented to surroundings, Maintained a safe environment, Educated pt \T\ family on fall prevention, incl call for assistance when getting out of bed. Abuse screen: Denies threats or abuse. Nutritional screening: No deficits noted. Tuberculosis screening: No symptoms or risk factors identified. Assessment: 05:22 General: see triage assessment . lg3 05:52 General: pt requesting pain medication. physician notified . lg3 06:56 Reassessment: No changes from previously documented assessment. Patient and/or family vc1 updated on plan of care and expected duration. Pain level reassessed. Patient is alert, oriented x 3, equal unlabored respirations, skin warm/dry/pink. 07:00 Reassessment: discharge pending repeat trop results. General: Appears in no apparent kc6 distress. comfortable, Behavior is calm, cooperative, appropriate for age. Neuro: Naidu Agitation-Sedation Scale (RASS): 0 - Alert and Calm Level of Consciousness is awake, alert, obeys commands, Oriented to person, place, time, situation, Appropriate for age. Cardiovascular: Capillary refill < 3 seconds. Respiratory: Airway is patent Trachea midline Respiratory effort is even, unlabored, Respiratory pattern is regular, symmetrical. 08:00 Reassessment: Patient appears in no apparent distress at this time. No changes from kc6 previously documented assessment. Patient and/or family updated on plan of care and expected duration. Pain level reassessed. Patient is alert, oriented x 3, equal unlabored respirations, skin warm/dry/pink. Vital Signs: 05:21 BP 142 / 85; Pulse 96; Resp 18 S; Temp 98.7(O); Pulse Ox 98% on R/A; Weight 71.21 kg lg3 (R); Height 5 ft. 7 in. (170.18 cm) (R); 06:00 BP 134 / 87; Pulse 95; Resp 22; Pulse Ox 99% ; vc1 06:45 BP 135 / 85; Pulse 92; Resp 23; Pulse Ox 98% ; vc1 05:21 Body Mass Index 24.59 (71.21 kg, 170.18 cm) lg3 ED Course: 05:21 Patient arrived in ED. lg3 05:22 Triage completed. lg3 05:22 Arm band placed on right wrist. lg3 05:23 Mustapha Cole MD is Attending Physician. caitlyn 05:35 Maintain EMS IV. Dressing intact. Good blood return noted. Site clean \T\ dry. Gauge \T\ ll 3 site: 20L forearm. 05:46 Basic Metabolic Panel Sent. ll3 05:46 CBC with Diff Sent. ll3 05:46 LFT's Sent. ll3 05:46 Magnesium Sent. ll3 05:46 NT PRO-BNP Sent. ll3 05:46 PT-INR Sent. ll3 05:46 Troponin HS Sent. ll3 05:46 Lipase Sent. ll3 05:52 UDS Sent. lg3 06:37 Troponin High Sensitivity: NOW Sent. vc1 06:55 No provider procedures requiring assistance completed. vc1 06:56 Patient has correct armband on for positive identification. Bed in low position. Client vc1 placed on continuous cardiac and pulse oximetry monitoring. NIBP monitoring applied. 06:57 Michelle Spivey, RN is Primary Nurse. vc1 07:00 Report received from SHEBA Martinez. kc6 07:16 Kavin Keenan MD is Referral Physician. caitlyn 08:40 IV discontinued, intact, bleeding controlled, No redness/swelling at site. Pressure kc6 dressing applied. Administered Medications: 06:16 Not Given (Physician Discretion): Aspirin Chewable Tablet 81 mg PO once ll3 06:45 Drug: morphine 4 mg Route: IVP; Infused Over: 4 mins; Site: left wrist; vc1 06:45 Drug: Zofran (Ondansetron) 4 mg Route: IVP; Site: left wrist; vc1 06:45 Drug: Lasix (furosemide) 40 mg Route: IVP; Site: left wrist; vc1 06:50 Drug: Lopressor (metoprolol TARTRATE) 50 mg Route: PO; vc1 07:21 Drug: PlaVIX (clopidogrel) 75 mg Route: PO; kc6 Medication: 06:56 VIS not applicable for this client. vc1 Outcome: 07:17 Discharge ordered by . caitlny 08:37 Discharged to home via ambulance, via wheelchair. kc6 08:37 Condition: stable 08:37 Discharge instructions given to patient, Instructed on discharge instructions, follow up and referral plans. medication usage, Demonstrated understanding of instructions, follow-up care, medications, Prescriptions given X 3. 08:40 Patient left the ED. kc6 Signatures: Mustapha Cole MD MD cha Gibson, Lacie RN RN lg3 Go Beauchamp RN RN 3 Michelle Spivey RN RN vc1 Jessica Yancey RN RN kc6 Corrections: (The following items were deleted from the chart) 05:26 05:21 Chief complaint: Patient states: stabbing chest pain that goes into my back and lg3 neck lg3 05:53 05:52 General: see triage assessment . lg3 lg3
--- NOTE | 2022-07-05 07:17 | EDPHYS ---
Physician Documentation [facility] Name: Ernie Rooney Age: 62 yrs Sex: Male : 1960 Arrival Date: 07/05/2022 Time: 05:21 Bed 5 Private MD: ANIA Physician Mustapha Cole HPI: 07/05 06:19 This 62 yrs old Male presents to ER via EMS with complaints of chest pain and caitlyn sob x 3 days. 06:19 The patient has shortness of breath at rest, with light activity. Onset: The caitlyn symptoms/episode began/occurred 3 day(s) ago. Duration: The symptoms are intermittent, with no pattern. The patient's shortness of breath is aggravated by nothing, is alleviated by nothing. The patient or guardian reports chest pain that is located primarily in the substernal area. Onset: 3 day(s) ago. The pain does not radiate. Associated signs and symptoms: Pertinent positives: non-productive cough, dizziness. Severity of symptoms: At their worst the symptoms were mild in the emergency department the symptoms are unchanged. The chest pain is described as a heaviness. Modifying factors: The symptoms are alleviated by nothing. the symptoms are aggravated by nothing. Severity of pain: At its worst the pain was mild moderate in the emergency department the pain is unchanged. The patient has experienced similar episodes in the past, chronically. Historical: - Allergies: 05:22 Nitroglycerin; lg3 - PMHx: 05:22 Arthritis; Back pain; CAD; CHF; CVA; Depression; Diabetes - NIDDM; Fibromyalgia; GERD; lg3 Hyperlipidemia; Hypertensive disorder; Hypothyroidism; Left sided weakness from previous CVA; Myocardial infarction; Pacemaker; - PSHx: 05:22 bilat BKA's; bypass; CABG; lg3 - Immunization history:: Adult Immunizations up to date, Client reports receiving the 2nd dose of the Covid vaccine, Flu vaccine is up to date. - Social history:: Smoking status: Patient denies any tobacco usage or history of. Patient/guardian denies using alcohol, street drugs. - Family history:: not pertinent. ROS: 06:19 Constitutional: Negative for fever, chills, and weight loss, Eyes: Negative for injury, caitlyn pain, redness, and discharge, ENT: Negative for injury, pain, and discharge, Neck: Negative for injury, pain, and swelling, Abdomen/GI: Negative for abdominal pain, nausea, vomiting, diarrhea, and constipation, Back: Negative for injury and pain, : Negative for injury, bleeding, discharge, and swelling, MS/Extremity: Negative for injury and deformity, Skin: Negative for injury, rash, and discoloration, Neuro: Negative for headache, weakness, numbness, tingling, and seizure, Psych: Negative for depression, anxiety, suicide ideation, homicidal ideation, and hallucinations, Allergy/Immunology: Negative for hives, rash, and allergies, Endocrine: Negative for neck swelling, polydipsia, polyuria, polyphagia, and marked weight changes, Hematologic/Lymphatic: Negative for swollen nodes, abnormal bleeding, and unusual bruising. 06:19 Cardiovascular: Positive for chest pain, with cough. 06:19 Respiratory: Positive for shortness of breath. Exam: 06:19 Constitutional: This is a well developed, well nourished patient who is awake, alert, caitlyn and in no acute distress. Head/Face: Normocephalic, atraumatic. Eyes: Pupils equal round and reactive to light, extra-ocular motions intact. Lids and lashes normal. Conjunctiva and sclera are non-icteric and not injected. Cornea within normal limits. Periorbital areas with no swelling, redness, or edema. ENT: Nares patent. No nasal discharge, no septal abnormalities noted. Tympanic membranes are normal and external auditory canals are clear. Oropharynx with no redness, swelling, or masses, exudates, or evidence of obstruction, uvula midline. Mucous membranes moist. Neck: Trachea midline, no thyromegaly or masses palpated, and no cervical lymphadenopathy. Supple, full range of motion without nuchal rigidity, or vertebral point tenderness. No Meningismus. Chest/axilla: Normal chest wall appearance and motion. Nontender with no deformity. No lesions are appreciated. Cardiovascular: Regular rate and rhythm with a normal S1 and S2. No gallops, murmurs, or rubs. Normal PMI, no JVD. No pulse deficits. Respiratory: Lungs have equal breath sounds bilaterally, clear to auscultation and percussion. No rales, rhonchi or wheezes noted. No increased work of breathing, no retractions or nasal flaring. Abdomen/GI: Soft, non-tender, with normal bowel sounds. No distension or tympany. No guarding or rebound. No evidence of tenderness throughout. Back: No spinal tenderness. No costovertebral tenderness. Full range of motion. Skin: Warm, dry with normal turgor. Normal color with no rashes, no lesions, and no evidence of cellulitis. MS/ Extremity: Pulses equal, no cyanosis. Neurovascular intact. Full, normal range of motion. Neuro: Awake and alert, GCS 15, oriented to person, place, time, and situation. Cranial nerves II-XII grossly intact. Motor strength 5/5 in all extremities. Sensory grossly intact. Cerebellar exam normal. Normal gait. Psych: Awake, alert, with orientation to person, place and time. Behavior, mood, and affect are within normal limits. 06:19 ECG was reviewed by the Attending Physician. Vital Signs: 05:21 BP 142 / 85; Pulse 96; Resp 18 S; Temp 98.7(O); Pulse Ox 98% on R/A; Weight 71.21 kg lg3 (R); Height 5 ft. 7 in. (170.18 cm) (R); 06:00 BP 134 / 87; Pulse 95; Resp 22; Pulse Ox 99% ; vc1 06:45 BP 135 / 85; Pulse 92; Resp 23; Pulse Ox 98% ; vc1 05:21 Body Mass Index 24.59 (71.21 kg, 170.18 cm) lg3 MDM: 05:23 Patient medically screened. caitlyn 06:22 Differential diagnosis: Bronchitis CHF exacerbation, abnormal EKG, acute pericarditis, caitlyn anxiety, coronary artery disease congestive heart failure esophagitis, gastritis, hiatal hernia, pancreatitis, pericarditis, pneumonia, pneumothorax, pulmonary embolus, stable angina, thoracic aortic disection, unstable angina, Myocardial Infarction pulmonary edema, Pulmonary Embolism reactive airway disease, Unstable Angina. Antibiotic administration: Not indicated. HEART Score: ECG: Non specific repolarization disturbance / LBTB / PM (1), Age: > 45 and < 65 years (1), Risk Factors: > or = 3 Risk factors for atherosclerotic disease (2), [Hypercholesterolemia] [Hypertension] [DM] [Active Smoker] [+ Family HX] [Obesity] Troponin: < or = 1 x Normal Limit (0), Total Score = 4. The patient was given aspirin in the Emergency Department. TARA Risk Score: 1 - Three or more CAD risk factors, 1- Known CAD, 1 - ASA use in past 7 days, TOTAL SCORE = 3. Immunization status: Influenza vaccine: within last 5 years. Data reviewed: vital signs, nurses notes, lab test result(s), EKG, radiologic studies, plain films. Consideration of Admission/Observation Patient was admitted/placed on observation. Escalation of care including admission/observation considered. 07/05 05:32 Order name: Basic Metabolic Panel [facility] 07/05 05:32 Order name: CBC with Diff caitlyn 07/05 05:32 Order name: LFT's 07/05 05:32 Order name: Magnesium [facility] 07/05 05:32 Order name: NT PRO-BNP [facility] 07/05 05:32 Order name: PT-INR [facility] 07/05 05:32 Order name: Troponin HS [facility] 07/05 05:32 Order name: UDS 07/05 05:32 Order name: Lipase [facility] 07/05 05:57 Order name: CBC with Automated Diff; Complete Time: 06:24 EDMS 07/05 05:57 Order name: Protime (+INR); Complete Time: 06:24 EDMS 07/05 06:11 Order name: Urine Drug Screen; Complete Time: 06:24 EDMS 07/05 06:19 Order name: Basic Metabolic Panel; Complete Time: 06:24 EDMS 07/05 06:19 Order name: Liver (Hepatic) Function; Complete Time: 06:24 EDMS 07/05 05:32 Order name: XRAY Chest (1 view) 07/05 05:32 Order name: EKG; Complete Time: 05:33 07/05 05:32 Order name: Cardiac monitoring; Complete Time: 05:36 07/05 05:32 Order name: EKG - Nurse/Tech; Complete Time: 05:36 07/05 06:19 Order name: Troponin High Sensitivity; Complete Time: 06:24 EDMS 07/05 06:19 Order name: NT PRO-BNP; Complete Time: 06:24 EDMS 07/05 06:19 Order name: Magnesium; Complete Time: 06:24 EDMS 07/05 06:19 Order name: Lipase; Complete Time: 06:24 EDMS 07/05 06:31 Order name: Troponin High Sensitivity: NOW 07/05 07:05 Order name: Troponin High Sensitivity; Complete Time: 07:15 EDMS 07/05 05:32 Order name: IV Saline Lock; Complete Time: 05:52 [facility] 07/05 05:32 Order name: Labs collected and sent; Complete Time: 05:52 [facility] 07/05 05:32 Order name: O2 Per Protocol; Complete Time: 05:36 [facility] 07/05 05:32 Order name: O2 Sat Monitoring; Complete Time: 05:36 [facility] EC:19 Rate is 92 beats/min. Rhythm is regular. MS interval is normal. QRS interval is normal. caitlyn QT interval is normal. No Q waves. Clinical impression: No evidence of ischemia. Interpreted by me. Reviewed by me. Administered Medications: 06:16 Not Given (Physician Discretion): Aspirin Chewable Tablet 81 mg PO once ll3 06:45 Drug: morphine 4 mg Route: IVP; Infused Over: 4 mins; Site: left wrist; vc1 06:45 Drug: Zofran (Ondansetron) 4 mg Route: IVP; Site: left wrist; vc1 06:45 Drug: Lasix (furosemide) 40 mg Route: IVP; Site: left wrist; vc1 06:50 Drug: Lopressor (metoprolol TARTRATE) 50 mg Route: PO; vc1 07:21 Drug: PlaVIX (clopidogrel) 75 mg Route: PO; kc6 Disposition Summary: 07/05/22 07:17 Discharge Ordered Location: Home caitlyn Problem: new caitlyn Symptoms: have improved caitlyn Condition: Stable caitlyn Diagnosis - Chest pain, unspecified caitlyn - Unspecified combined systolic (congestive) and diastolic (congestive) heart failure caitlyn - Type 2 diabetes mellitus with hyperglycemia caitlyn Followup: caitlyn - With: Private Physician - When: 2 - 3 days - Reason: Recheck today's complaints, Continuance of care, Re-evaluation by your physician Followup: caitlyn - With: - When: 2 - 3 days - Reason: Recheck today's complaints, Re-evaluation by your physician Discharge Instructions: - Discharge Summary Sheet caitlyn - Nonspecific Chest Pain, Adult caitlyn - High-Fiber Diet caitlyn - Hyperglycemia caitlyn - Nonspecific Chest Pain, Adult, [id number] caitlyn - Diabetes Mellitus and Nutrition, Adult caitlyn - Aspirin and Your Heart caitlyn Forms: - Medication Reconciliation Form caitlyn - Thank You Letter caitlyn - Antibiotic Education caitlyn - Prescription Opioid Use caitlyn Prescriptions: - Lopressor 50 mg Oral Tablet - take 1 tablet by ORAL route every 12 hours; 30 tablet; Refills: 0, Product caitlyn Selection Permitted - Lasix 20 mg Oral Tablet - take 1 tablet by ORAL route once daily; 20 tablet; Refills: 0, Product caitlyn Selection Permitted - Plavix 75 mg Oral Tablet - take 1 tablet by ORAL route once daily; 20 tablet; Refills: 0, Product caitlyn Selection Permitted Signatures: Dispatcher [employer] Mustapha Arredondo MD MD cha Gibson, Lacie, RN RN lg3 Michelle Spivey RN RN vc1 Jessica Yancey RN RN kc6 Go Beauchamp RN ll3
[2022-07-05] MEDS ORDERED: CLOPIDOGREL 75 MG TABLET ONE (07:23)
[2022-07-05 08:52] VITALS: TEMP 98.7
[2022-07-05 08:55] VITALS: BP 135/85; O2SAT 98
--- NOTE | 2022-07-05 13:42 | RAD REPORT ---
EXAM DESCRIPTION: RAD - Chest Single View - 07/05/2022 6:06 am CLINICAL HISTORY: CHEST PAIN COMPARISON: 07/02/2022. TECHNIQUE: XR CHEST 1 VIEW 07/05/2022 5:32 AM [employer] FINDINGS: The heart is enlarged. Sternotomy was performed. Left pacemaker is present. There is minim al left basilar airspace disease. There are probable bilateral pleural effusions. There is no pneumot horax. There are no acute osseous findings. IMPRESSION: No significant change. Electronically signed by: Travis Ruiz MD 07/05/2022 6:48 AM [employer] Due to temporary technical issues with the PACS/Fluency reporting system, reports are being signed by the in house radiologists without review as a courtesy to insure prompt reporting. The interpreting radiologist is fully responsible for the content of the report.
--- NOTE | 2022-07-05 17:08 | EKG ---
Test Date: 2022-07-05 Test Time: 05:34:18 Adult Daycare Coordinator: LL MEASUREMENT RESULTS: Intervals: Rate: 92 [place]: 140 QRSD: 162 QT: 422 QTc: 521 [place]: P: 15 [place]: 140 QRS: -51 T: 129 INTERPRETIVE STATEMENTS: Electronic ventricular pacemaker Compared to ECG 07/01/2022 23:47:23 No significant changes Electronically Signed On 07-05-22 17:08:04 DRAWER FITTER by Kavin Keenan
== END 2022-07-05 08:40 | disposition home or self-care (01) ==
LOC: ER 05:18
DX: R07.9 Chest pain, unspecified (principal); I50.40 Unspecified combined systolic (congestive) and diastolic (congestive) heart failure; E11.65 Type 2 diabetes mellitus with hyperglycemia; Z95.1 Presence of aortocoronary bypass graft; Z89.511 Acquired absence of right leg below knee; Z89.512 Acquired absence of left leg below knee; Z95.0 Presence of cardiac pacemaker; Z88.8 Allergy status to other drugs, medicaments and biological substances
CPT/HCPCS: 93005; 85025; 80048; 36415; 83735; 85610; 80076; 84484 ×2; 83690; 83880; 80307; 71045; J1940; J2405

== ENCOUNTER 2022-07-08 06:31 | Emergency (ER) | payer OTHER ==
--- OUTSIDE RECORDS SUMMARY | 2022-07-08 06:41 | XMS REPORT | Continuity of Care Document ---
:1960 Author Organization [facility] t Address [address] [place] [address] Care Team Providers Name Role Phone MONIKA HALL MD Primary Care Physician [id number] Attending Clinician Unavailable Harshal Zhu Attending Clinician Unavailable Finn Shah Attending Clinician Unavailable Doctor Unassigned, [place] Attending Clinician Unavailable Josselyn Harding RN Attending [...] Attending Clinician Alis Garcia MD Attending Clinician [phone] Kaylyn Calvin MD Attending Clinician Tha Gunter MD Attending Clinician THA GUNTER Attending Clinician Unavailable DEIDRE JAIME Attending Clinician Unavailable Johnie Montanez Attending Clinician Unavailable Minnie Cardona MD Attending Clinician Tejas HALL, rDew Mckenzie Attending Clinician Susanne HALL, Johnie Novak [...] Unavailable Casper RAE, Michael Gaxiola Attending Clinician [phone] Nova RAE, Cortney Law Attending Clinician [phone] Emy SCRUGGS, Rhonda Attending Clinician Dennis Finley MD Attending Clinician Carlos Allen MD Attending Clinician ALEXIS COX Attending Clinician Unavailable JACQUELYN MONTES DE OCA Attending Clinician Unavailable NICHELLE PALACIOS Attending Clinician Unavailable [id number] Admitting Clinician Unavailable Nika Martin Admitting Clinician [...] Admitting Clinician Unavailable Michael Hernandez Admitting Clinician [phone] Malia HALL Dennis Arreola Admitting Clinician ALEXIS COX Admitting Clinician Unavailable NICHELLE PALACIOS Admitting Clinician Unavailable Payers Payer Name Policy Type Policy Number Effective Date Expiration Date Sujit daugherty [facility] [id number] Conduit [id number] 2018spring 00:00:00 [facility] [id number] 2004-08-20 [facility] Medical [...] Added automatic ally from request for surgery [id number] Troponin I Troponin I Disease Active 2020-0 [...] 00:00: [place] involving involving 00 Medi uriel tonto apache tonto apache 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 Type 2 Type 2 Disease Active 2019 Univers diabetes diabetes 8-29 ity of mellitus mellitus 00:00: [place] without without 00 Medical complicati complicati Br anch on, on, without without long-term long-term current current use of use of insulin insulin Essential Essential Disease Active Uni vers hypertensi hypertensi 01-17 it y of on on 00:00: [place] [address] Medical Branch Other Other Disease Active Univers hyperlipid hyperlipid 01-17 it y of emia emia 00:00: [place] [address] Medical Branch Stroke Stroke Disease Active Univers 5-12 ity of 00:00: [place] [facility] Left-sided Left-sided Disease Active U nivers weakness weakness - ity of 00:00: [place] [facility] Left sided Left sided Disease Active U nivers numbness numbness 5- ity of 00:00: [place] 00 Medical Branch [...] chest pain 2-22 it y of 00:00: [place] [address] Medical Branch Chest pain Chest pain Problem [facility] Coronary CAD Problem Active [facility] artery (coronary [facility] disease artery Patient disease) [facility] Diabetic DKA Problem Active [facility] ketoacidos (diabetic Esme es is ketoacidos Patien t es[facility] Hyperglyce Hyperglyce Problem Active [facility] bambi bambi [facility] Hypertensi Hypertensi Problem Active [facility] on on [facility] Pancreatit Pancreatit Problem Active [facility] is is [facility] Uncontroll Uncontroll Problem Active [facility] diabetes diabetes Patien t mellitus mellitus [facility] Allergies, Adverse Reactions, Alerts Allergy Allergy Status Severity Reaction(s) Onset Inactive Treating Comm ents Source Name Type Date Date Clinician No Known DA Active U [facility] 3[facility]22 [place] [facility] 00:[facility]: d 00 [facility] No Known DA Active U [facility] Allergie 3- [place] [facility] 00:[facility]: d 00 [facility] No Known DA Active U 2017-05 [facility] Allergie 2-31 [facility] s 00:00: [facility] 00 [facility] No Known DA Active U 2017-05 [facility] Allergie 2-31 [facility] s 00:00: [place] 00 [facility] No Known DA Active U [facility] Allergie 3- [place] [facility] 00:[facility]: e 00 [facility] NO KNOWN Drug Active Univers ALLERGIE Class ity of S [place] [facility] Social History Social Habit Start Date Stop Date Quantity Comments Source History of Passive smoker University of tobacco use [place] [facility] History SDOH University o f Alcohol Frequency [place] M edical Branch History SDOH University o f Alcohol Std [place] Medical Drinks Branch History SDOH University o f Alcohol Binge [place] Medic al Branch History SDOH Food 2022-02-11 2022-02-11 1 Univers ity of Worry 00:00:00 00:00:00 [place] [facility] History SDOH Food 2022-02-11 2022-02-11 1 Univers ity of Scarcity 00:00:00 00:00:00 [place] [facility] History SDOH 2022-02-11 2022-02-11 2 University o f Transport Med 00:00:00 00:00:00 [place] Medic al Branch History SDOH 2022-02-11 2022-02-11 2 University o f Transport Non-Med 00:00:00 00:00:00 [place] M edical Branch Exposure to 2022-01-30 2022-02-09 Not sure University of SARS-CoV-2 00:00:00 20:09:00 [place] Medical (event) Branch Tobacco use and 2022-02-09 2022-02-09 Smokeless tobacco Un iversity of exposure 00:00:00 00:00:00 non-user [place] [facility] Alcohol intake 2022-02-09 2022-02-09 1.71 /d University of 00:00:00 00:00:00 [facility] Tobacco Comment 2022-02-09 2022-02-09 quit 15 years ago Un iversity of 00:00:00 00:00:00 [facility] Education 2021-10-27 2021-10-27 9 University of 00:00:00 00:00:00 [facility] History SDOH 2020-03-16 2020-03-16 3 University o f Financial 00:00:00 00:00:00 [facility] Alcohol Comment 2019-07-18 2019-07-18 quit drinking Univvish sitvashti of 00:00:00 00:00:00 2013 but drank [facility] heavily before Branch this Sex [birth year] At [birth year] LUCY Sanders 00:00:00 00:00:00 [facility] Smoking Status Start Date Stop Date Source Ex-smoker 2022-02-09 00:00:00 2022-02-09 00:00:00 Universi ty of [facility] Medications Ordered Filled Start Stop Current Ordering Indication Dosage Frequency Signature Comments Components Source Medication Medication Date Date Medication? Clinician (SIG) Name Name aspirin 81 2021- No [id number] 81mg Take 1 Univers mg chewable 9-23 10-24 tablet by it y of tablet 00:00: 04:59 mouth [place] 00 :00 daily with Medical breakfast Branch for 30 days. glipiZIDE 5 2021- No [id number] 5mg Take 1 Univers mg tablet 9-23 10-24 tablet by ity of 00:00: 04:59 mouth in [place] 00 :00 the Medical morning Branch for 30 days. levothyroxi 2021- No [id number] 50ug Take 1 Univers ne 50 mcg 9-23 10-24 tablet by ity of tablet 00:00: 04:59 mouth [place] 00 :00 every Medical morning Branch for 30 days. lisinopriL 2021- No [id number] 2.5mg Take 1 Univers 2.5 mg 9-23 10-24 tablet by ity of tablet 00:00: 04:59 mouth in [place] 00 :00 the Medical morning Branch for 30 days. spironolact 2021- No [id number] 25mg Take 1 Univers one 25 mg 9-23 10-24 tablet by ity of tablet 00:00: 04:59 mouth in [place] 00 :00 the Medical morning [place] for 30 days. tamsulosin 2021- No [id number] .4mg Take 1 Univers 0.4 mg 24 9-23 10-24 capsule by ity of hr capsule 00:00: 04:59 mouth in [facility] 00 :00 the Medical morning Branch for 30 days. aspirin 81 2021-2021- No [id number] 81mg Take 1 Univers mg chewable 9-23 10-24 tablet by it y of tablet 00:00: 04:59 mouth [place] 00 :00 daily with [facility] breakfast Branch for 30 days. glipiZIDE 5 2021- No [id number] 5mg Take 1 Univers mg tablet 9- 10-24 tablet by ity of 00:00: 04:59 mouth in [place] 00 :00 the [facility] morning [place] for 30 days. levothyroxi 2021- No [id number] 50ug Take 1 Univers ne 50 mcg 9-23 10-24 tablet by ity of tablet 00:00: 04:59 mouth [place] 00 :00 every [facility] morning [place] for 30 days. lisinopriL 2021- No [id number] 2.5mg Take 1 Univers 2.5 mg 9-23 10-24 tablet by ity of tablet 00:00: 04:59 mouth in [place] 00 :[address] [facility] for 30 days. spironolact 2021- No [id number] 25mg Take 1 Univers one 25 mg 9-23 10-24 tablet by ity of tablet 00:00: 04:59 mouth in [place] 00 :[address] [facility] for 30 days. tamsulosin 2021- No [id number] .4mg Take 1 Univers 0.4 mg 24 9-23 10-24 capsule by ity of hr capsule 00:00: 04:59 mouth in [facility] 00 :00 the [facility] morning [place] for 30 days. sulfur 2021- No [id number] 5mL 5 mL, Unive rs hexafluorid 02-10 Intravenou i ty of e microsphr 16:30: 16:30 s, ONCE, 1 [place] (LUMASON) 00 :00 dose, On Medica l injection 5 Annie Branch mL 02/10/22 at 1130, Routine
delivery crew member approving Restricted medication : NINFA CASTILLO K.[facility]. traMADoL 2021-0 Yes 50mg 50 mg, Univers (ULTRAM) 02-10 Oral, ity of tablet 50 15:10: Q6HPRN, [place] mg 57 Starting Medical on [facility] Branch 02/10/22 at 1010, Until Discontinu ed, Routine, Pain (scale 7-10) lisinopriL 0 Yes 2.5mg 2.5 mg, Uni vers (PRINIVIL,Z 02-10 Oral, ity of ESTRIL) 14:00: DAILY, [place] tablet 2.5 00 First dose Med ical mg on [facility] Branch 02/10/22 at 0900, Until Discontinu ed, Routine glipiZIDE 0 Yes 5mg 5 mg, Univers (GLUCOTROL) 02-10 Oral, ity of tablet 5 mg 14:00: DAILY, [place] 00 First dose Medical on [facility] Branch 02/10/22 at 0900, Until Discontinu ed, Routine enoxaparin 0 Yes 30mg 30 mg, Unive rs (LOVENOX) 02-10 Subcutaneo ity of injection 14:00: [place], DAILY, [place] 30 mg 00 First dose Medical on [facility] Branch 02/10/22 at 0900, Until Discontinu ed, Routine levothyroxi Yes 50ug 50 mcg, Uni vers ne 02-10 Oral, ity of (SYNTHROID) 11:00: QAM-0600, [place] tablet 50 00 First dose Medi uriel mcg on [facility] Branch 02/10/22 at 0600, Until Discontinu ed, Routine morpHINE (2 2021- No 2mg 2 mg, Slow Univers mg/mL) 02-10 IV Push, ity of injection 2 08:45: 08:01 ONCE, 1 [place] mg 00 :00 dose, On [facility] 02/10/22 at 0345, Routine furosemide 0 Yes [...] dose [place] mg 00 on Mon [facility] 02/09/22 at Branch 2315, Until Discontinu ed, [...] First dose Med ical 12.5 mg on [facility] 02/09/22 at 2315, Until Discontinu ed, Routine tamsulosin 2021-0 Yes .4mg 0.4 mg, Univ ers (FLOMAX) 02-10 Oral, ity of capsule 0.4 04:15: DAILY, [place] mg 00 First dose Medical on [facility] Branch 02/09/22 at 2315, Until Discontinu ed, Routine gabapentin 2021-0 Yes 300mg 300 mg, Uni vers (NEURONTIN) 02-10 Oral, BID, it y of capsule 300 04:15: First dose [place] mg 00 on Mon [facility] 02/09/22 at Branch 2315, Until Discontinu ed, Routine sennosides 2021-0 Yes 8.6mg 8.6 mg, Uni vers (SENOKOT) 02-10 Oral, BID, ity of tablet 8.6 04:15: First dose [place] mg 00 on Mon [facility] 02/09/22 at Branch 2315, Until Discontinu ed, Routine docusate 2021-0 Yes 100mg 100 mg, Unive rs (COLACE) 02-10 Oral, BID, ity o f capsule 100 04:15: First dose [place] mg 00 on Mon [facility] 02/09/22 at Branch 2315, Until Discontinu ed, [...] IV ity of (D50W) 04:01: Push, PRN, [place] injection 56 Starting Medica l 25 mL on Wed Branch 02/09/22 at 2301, Until Discontinu ed, PIERRE, Blood Glucose < or = 70 mg/dL and patient is unable to swallow or has mental status changes. atorvastati 2021- No [id number] 40mg Take 1 Univers n 40 mg - 10-23 tablet by ity of tablet 00:00: 04:59 mouth at [place] 00 :00 bedtime Medical for 30 Branch days. metoprolol 2021- No [id number] 12.5mg Take 0.5 Univers succinate 9- 10-23 tablets by ity of XL 25 mg 24 00:00: 04:59 mouth in [place] hr tablet 00 :00 the Medical morning Branch for 30 days. atorvastati 2021- No [id number] 40mg Take 1 Univers n 40 mg -22 10-23 tablet by ity of tablet 00:00: 04:59 mouth at [place] 00 :00 bedtime Medical for 30 Branch days. metoprolol 2021- No [id number] 12.5mg Take 0.5 Univers succinate 02-1023 tablets [...] at 0215, 1 mL gabapentin 2021- No [id number] 300mg Take 1 Univers 300 mg 11-05 capsule by ity of capsule 00:00: 04:59 mouth 3 [place] 00 :00 (three) Medical times Branch daily for 10 days. gabapentin 2021- No [id number] 300mg Take 1 Univers 300 mg 11-05 capsule by ity of capsule 00:00: 04:59 mouth 3 [place] 00 :00 (three) Medical times Branch daily for 10 days. aspirin 81 2021- No [id number] 81mg Take 1 Univers mg chewable 6-16 07-17 tablet by it y of tablet 00:00: 04:59 mouth [place] 00 :00 daily for Medical 30 days. [place] aspirin 81 2021- No [id number] 81mg Take 1 Univers mg chewable 6-16 07-17 tablet by it y of tablet 00:00: 04:59 mouth [place] 00 :00 daily for Medical 30 days. Branch aspirin 81 2021- No [id number] 81mg Take 1 Univers mg chewable 6-16 07-17 tablet by it y of tablet 00:00: 04:59 mouth [place] 00 :00 daily for Medical 30 days. [place] proMETHazin Yes [id number] 25mg Take 1 Univers e 25 mg 6-03 tablet by ity of tablet 00:00: mouth [place] 00 every 6 Medical (six) Branch hours as needed for Nausea and Vomiting (N/V). proMETHazin Yes [id number] 25mg Take 1 Univers e 25 mg 6-03 tablet by ity of tablet 00:00: mouth [place] 00 every 6 Medical (six) Branch hours as needed for Nausea and Vomiting (N/V). proMETHazin 2021-0 Yes [id number] 25mg Take 1 Univers e 25 mg 6-03 tablet by ity of tablet 00:00: mouth [place] 00 every 6 Medical (six) Branch hours as needed for Nausea and Vomiting (N/V). proMETHazin 2021-0 Yes [id number] 25mg Take 1 Univers e 25 mg 6-03 tablet by ity of tablet 00:00: mouth [place] 00 every 6 Medical (six) Branch hours as needed for Nausea and Vomiting (N/V). proMETHazin 2021-0 Yes [id number] 25mg Take 1 Univers e 25 mg 6-03 tablet by ity of tablet 00:00: mouth [place] 00 every 6 Medical (six) Branch hours as needed for Nausea and Vomiting (N/V). proMETHazin 2021-0 Yes [id number] 25mg Take 1 Univers e 25 mg 6-03 tablet by ity of tablet 00:00: mouth [place] 00 every 6 Medical (six) Branch hours as needed for Nausea and Vomiting (N/V). fenofibrate 2021- No [id number] 134mg Take 1 Univers micronized -19 12- capsule by it y of 134 mg 00:00: 04:59 mouth [place] capsule 00 :00 daily for Medical 30 days. Branch lisinopriL 2021- No [id number] 2.5mg Take 1 Univers 2.5 mg -19 12- tablet by ity of tablet 00:00: 04:59 mouth [place] 00 :00 daily for Medical 30 days. Branch fenofibrate 2021- No [id number] 134mg Take 1 Univers micronized 5-19 12- capsule by it y of 134 mg 00:00: 04:59 mouth [place] capsule 00 :00 daily for Medical 30 days. Branch lisinopriL 2021- No [id number] 2.5mg Take 1 Univers 2.5 mg 5-19 12- tablet by ity of tablet 00:00: 04:59 mouth [place] 00 :00 daily for Medical 30 days. Branch fenofibrate 2021-2021- No [id number] 134mg Take 1 Univers micronized -19 12- capsule by it y of 134 mg 00:00: 04:59 mouth [place] capsule 00 :00 daily for Medical 30 days. Branch lisinopriL 2021- No [id number] 2.5mg Take 1 Univers 2.5 mg -31 - tablet by ity of tablet 00:00: 04:59 mouth [place] 00 :00 daily for Medical 30 days. Branch furosemide 2021- No [id number] 40mg Take 1 Univers 40 mg 5-30 [...] s: atrial fibrillati on calcitrioL 2021- No [id number] .5ug Take 1 Univers 0.5 mcg -30 -30 capsule by ity o f capsule 00:00: 04:59 mouth [place] 00 :00 daily for Medical 30 days. [place] insulin NPH 2021- No [id number] 5U inject 5 Univers (HUMULIN N 5-30 06-30 Units ity of NPH U-100 00:00: 04:59 under the [place] INSULIN) 00 :00 skin every Medic al 100 unit/mL evening Branc h injection for 30 days. atorvastati 2021- No [id number] 40mg Take 1 Univers n 40 mg 5-30 -30 tablet by ity of tablet 00:00: 04:59 mouth at [place] 00 :00 bedtime Medical for 30 Branch days. carvediloL 2021- No [id number] 3.125mg Take 1 Univers 3.125 mg 5-30 06-30 tablet by ity o f tablet 00:00: 04:59 mouth 2 [place] 00 :00 (two) Medical times Branch daily with meals for 30 days. furosemide 2021- No [id number] 40mg Take 1 Univers 40 mg 5-30 [...] s: atrial fibrillati on calcitrioL 2021- No [id number] .5ug Take 1 Univers 0.5 mcg 5-30 06-30 capsule by ity o f capsule 00:00: 04:59 mouth [place] 00 :00 daily for Medical 30 days. Branch insulin NPH 2021- No [id number] 5U inject 5 Univers (HUMULIN N 5-30 06-30 Units ity of NPH U-100 00:00: 04:59 under the [place] INSULIN) 00 :00 skin every Medic al 100 unit/mL evening Branc h injection for 30 days. atorvastati 2021- No [id number] 40mg Take 1 Univers n 40 mg 5-30 06-30 tablet by ity of tablet 00:00: 04:59 mouth at [place] 00 :00 bedtime Medical for 30 Branch days. carvediloL 2021- No [id number] 3.125mg Take 1 Univers 3.125 mg 5-30 06-30 tablet by ity o f tablet 00:00: 04:59 mouth 2 [place] 00 :00 (two) Medical times Branch daily with meals for 30 days. furosemide 2021- No [id number] 40mg Take 1 Univers 40 mg 5-30 [...] s: atrial fibrillati on calcitrioL 2021- No [id number] .5ug Take 1 Univers 0.5 mcg 5-30 06-30 capsule by ity o f capsule 00:00: 04:59 mouth [place] 00 :00 daily for Medical 30 days. Branch insulin NPH 2021- No [id number] 5U inject 5 Univers (HUMULIN N 5-30 06-30 Units ity of NPH U-100 00:00: 04:59 under the [place] INSULIN) 00 :00 skin every Medic al 100 unit/mL evening Branc h injection for 30 days. atorvastati 2021- No [id number] 40mg Take 1 Univers n 40 mg 5-30 06-30 tablet by ity of tablet 00:00: 04:59 mouth at [place] 00 :00 bedtime Medical for 30 Branch days. carvediloL 2021- No [id number] 3.125mg Take 1 Univers 3.125 mg 5-30 -30 tablet by ity o f tablet 00:00: 04:59 mouth 2 [place] 00 :00 (two) Medical times Branch daily with meals for 30 days. metFORMIN Yes [id number] 500mg Take 1 U nivers 500 mg 3-02 tablet by ity of tablet 00:00: mouth [address] [place] [address] ([facility]) Medical times Branch daily with meals. metFORMIN Yes [id number] 500mg Take 1 U nivers 500 mg 3-02 tablet by ity of tablet 00:00: mouth [place] ([facility]) Medical times Branch daily with meals. metFORMIN Yes [id number] 500mg Take 1 U nivers 500 mg 3-02 tablet by ity of tablet 00:00: mouth [place] ([facility]) Medical times Branch daily with meals. metFORMIN Yes [id number] 500mg Take 1 U nivers 500 mg 3-02 tablet by ity of tablet 00:00: mouth [place] ([facility]) Medical times Branch daily with meals. metFORMIN Yes [id number] 500mg Take 1 U nivers 500 mg 3-02 tablet by ity of tablet 00:00: mouth [place] ([facility]) Medical times Branch daily with meals. metFORMIN Yes [id number] 500mg Take 1 U nivers 500 mg 3-02 tablet by ity of tablet 00:00: mouth 2 [place] ([facility]) Medical times Branch daily with meals. albuterol Yes [id number] 2{puff} Inhale 2 Univers 90 2-21 Puffs 2 ity of mcg/actuati 00:00: (two) [place] on inhaler 00 times Medical daily. Branch collagenase Yes [id number] Use as Univers 250 2-21 directed ity of unit/gram 00:00: by office Juan J as ointment 00 Medical Branch cyclobenzap Yes [id number] 10mg Take 1 Univers rine 10 mg 2-21 tablet by ity of tablet 00:00: mouth 2 [place] 00 (two) Medical times Branch daily as needed for Muscle Spasms. dextrometho Yes [id number] 10mL Take 10 mL Univers rphan-guaif 2-21 [...] for Pain (scale 4-6). melatonin 3 Yes [id number] 3mg Take 1 Univers mg tablet 2-21 tablet by ity o f 00:00: mouth at [place] 00 bedtime. Medical Branch ondansetron Yes [id number] 4mg Take 1 Univers 4 mg 2-21 tablet by ity of disintegrat 00:00: mouth [place] ing tablet 00 every 8 Medica l (eight) Branch hours as needed for Nausea and Vomiting (N/V). albuterol Yes [id number] 2{puff} Inhale 2 Univers 90 2-21 Puffs 2 ity of mcg/actuati 00:00: (two) [place] on inhaler 00 times Medical daily. Branch collagenase Yes [id number] Use as Univers 250 2-21 directed ity of unit/gram 00:00: by office [place] J as ointment 00 Medical Branch cyclobenzap Yes [id number] 10mg Take 1 Univers rine 10 mg 2-21 tablet by ity of tablet 00:00: mouth 2 [place] 00 (two) Medical times Branch daily as needed for Muscle Spasms. dextrometho Yes [id number] 10mL Take 10 mL Univers rphan-guaif 2-21 [...] for Pain (scale 4-6). melatonin 3 Yes [id number] 3mg Take 1 Univers mg tablet 2-21 tablet by ity o f 00:00: mouth at [place] 00 bedtime. Medical Branch ondansetron Yes [id number] 4mg Take 1 Univers 4 mg 2-21 tablet by ity of disintegrat 00:00: mouth [place] ing tablet 00 every 8 Medica l (eight) Branch hours as needed for Nausea and Vomiting (N/V). albuterol Yes [id number] 2{puff} Inhale 2 Univers 90 2-21 Puffs 2 ity of mcg/actuati 00:00: (two) [place] on inhaler 00 times Medical daily. Branch collagenase Yes [id number] Use as Univers 250 2-21 directed ity of unit/gram 00:00: by office [place] J as ointment 00 Medical Branch cyclobenzap Yes [id number] 10mg Take 1 Univers rine 10 mg 2-21 tablet by ity of tablet 00:00: mouth 2 [place] 00 (two) Medical times Branch daily as needed for Muscle Spasms. dextrometho Yes [id number] 10mL Take 10 mL Univers rphan-guaif 2-21 [...] for Pain (scale 4-6). melatonin 3 Yes [id number] 3mg Take 1 Univers mg tablet 2-21 tablet by ity o f 00:00: mouth at [place] 00 bedtime. Medical Branch ondansetron 2022-0 Yes [id number] 4mg Take 1 Univers 4 mg 2-21 tablet by ity of disintegrat 00:00: mouth [place] ing tablet 00 every 8 Medica l (eight) Branch hours as needed for Nausea and Vomiting (N/V). albuterol Yes [id number] 2{puff} Inhale 2 Univers 90 2-21 Puffs 2 ity of mcg/actuati 00:00: (two) [place] on inhaler 00 times Medical daily. Branch collagenase Yes [id number] Use as Univers 250 2-21 directed ity of unit/gram 00:00: by office [place] J as ointment 00 Medical Branch cyclobenzap Yes [id number] 10mg Take 1 Univers rine 10 mg 2-21 tablet by ity of tablet 00:00: mouth 2 [place] 00 (two) Medical times Branch daily as needed for Muscle Spasms. melatonin 3 Yes [id number] 3mg Take 1 Univers mg tablet 2-21 tablet by ity o f 00:00: mouth at [place] 00 bedtime. Medical Branch ondansetron Yes [id number] 4mg Take 1 Univers 4 mg 2-21 tablet by ity of disintegrat 00:00: mouth [place] ing tablet 00 every 8 Medica l (eight) Branch hours as needed for Nausea and Vomiting (N/V). albuterol Yes [id number] 2{puff} Inhale 2 Univers 90 2-21 Puffs 2 ity of mcg/actuati 00:00: (two) [place] on inhaler 00 times Medical daily. Branch collagenase Yes [id number] Use as Univers 250 2-21 directed ity of unit/gram 00:00: by office [place] J as ointment 00 Medical Branch cyclobenzap Yes [id number] 10mg Take 1 Univers rine 10 mg 2-21 tablet by ity of tablet 00:00: mouth 2 [place] 00 (two) Medical times Branch daily as needed for Muscle Spasms. melatonin 3 Yes [id number] 3mg Take 1 Univers mg tablet 2-21 tablet by ity o f 00:00: mouth at [place] 00 bedtime. Medical Branch ondansetron 0 Yes [id number] 4mg Take 1 Univers 4 mg 2-21 tablet by ity of disintegrat 00:00: mouth [place] ing tablet 00 every 8 Medica l (eight) Branch hours as needed for Nausea and Vomiting (N/V). albuterol Yes [id number] 2{puff} Inhale 2 Univers 90 2-21 Puffs 2 ity of mcg/actuati 00:00: (two) [place] on inhaler 00 times Medical daily. Branch collagenase Yes [id number] Use as Univers 250 2-21 directed ity of unit/gram 00:00: by office [place] J as ointment 00 Medical Branch cyclobenzap Yes [id number] 10mg Take 1 Univers rine 10 mg 2-21 tablet by ity of tablet 00:00: mouth 2 [place] 00 (two) Medical times Branch daily as needed for Muscle Spasms. melatonin 3 Yes [id number] 3mg Take 1 Univers mg tablet 2-21 tablet by ity o f 00:00: mouth at [place] 00 bedtime. Medical Branch ondansetron Yes [id number] 4mg Take 1 Univers 4 mg 2-21 tablet by ity of disintegrat 00:00: mouth [place] ing tablet 00 every 8 Medica l (eight) Branch hours as needed for Nausea and Vomiting (N/V). dextrometho 2021- No [id number] 10mL Take 10 mL Univers rphan-guaif 07-12 [...] Brooke Frankel 00:00: 00:00 Patient 00 :00 [facility] Diflunisal Diflunisal 2015- No Todd Wynn [address] [facility] (Dolobid) (Dolobid) 01-17 [facility] 500 Mg 500 Mg 00:00: 00:00 Patient Tablet, 500 Tablet, 500 00 :00 M edical Mg Oral Mg Oral Center Ondansetron Ondansetron 2016- No Todd Wynn [address] [facility] Hcl 01-17 [place] [facility] (Zofran*) 4 (Zofran*) 4 00:00: 00:00 needed for Patient Mg Tablet, Mg Tablet, 00 :00 Nausea M edical 4 Mg 4 Mg Center Sublingual Sublingual Clopidogrel Clopidogrel Yes [address] [facility] Bisulfate Bisulfate [facility] (Plavix) 75 (Plavix) 75 P atient Mg Tablet Mg Tablet Medic al Center Cyclobenzap Cyclobenzap Yes [address] [facility] [address] rine Hcl rine Hcl Times A Luke [facility] (Flexeril) (Flexeril) Day as P atient 5 Mg Tablet 5 Mg Tablet needed for Medical [facility] Spasms Doxazosin Doxazosin Yes [address] [facility] [address] Mesylate Mesylate [facility] (Cardura) 8 (Cardura) 8 P [...] Tablet Mg Tablet Day [facility] [place] Hydrocodone Hydrocodone Yes [address] [facility] Bit/Acetami Bit/Acetami Hours as [facility] nophen nophen needed for Patie nt (Darwin ([facility] 10-325 10-325 Center Tablet) 1 [...] Mg Tablet Mg Tablet Pat[facility] nt [facility] [place] Nitroglycer Nitroglycer Yes As Needed [facility] in in [facility] (Nitrostat) (Nitrostat) P atient 0.4 Mg 0.4 Mg Medical Tab.subl Tab.subl Center Omeprazole Omeprazole Yes [address] 20 Mg 20 Mg [facility] Capsule.dr Lind. [facility] Simvastatin Simvastatin Yes [address] 80 Mg 80 Mg [facility] Tablet Tablet Patient [facility] Tamsulosin Tamsulosin Yes Daily [facility] Hcl 0.4 Mg Hcl 0.4 Mg Esme es Cap.er.24h Cap.er.24h [facility] Tramadol Tramadol Yes [address] Hcl Hcl Daily as [facility] (Ultram) 50 (Ultram) 50 needed for Patient Mg Tablet Mg Tablet Pain Medic al Center Venlafaxine Venlafaxine Yes [address] [address] Hcl 75 Mg Hcl 75 Mg [facility] Tab Tab Patient [facility] Albuterol Albuterol 2017- No 1 Twice [...] 06-17 [facility] Capsule., Capsule., 00:00 Patient :00 [facility] Insulin Insulin 90 Twice A [facility] [...] 25 Mg Oral 25 Mg Oral :00 [facility] Albuterol Albuterol As Needed [facility] Sulfate Sulfate 11-23 as needed Esme es (Ventolin (Ventolin 00:00 for Manjula ent Hfa) 18 Gm Hfa) 18 Gm :00 [facility] Medical Hfa.aer.ad, Hfa.aer.ad, Of Breath Center 90 Mcg 90 Mcg Inhalation Inhalation Dicyclomine Dicyclomine Twice A [facility] Hcl 10 Mg Hcl 10 Mg 11-23 Day Luke s Capsule, 10 Capsule, 10 00:00 Patient Mg Oral Mg Oral :00 [facility] Methocarbam Methocarbam [address] [...] Mg 40 Mg :00 Medical Tablet., Tablet., Agusitn ter 40 Mg Oral 40 Mg Oral [...] Mg Oral 600 Mg Oral :00 [facility] Pregabalin Pregabalin 2013- No 150 Twice [...] Ordered Filled Immunization Date Status Comments [facility] Immunization Name Name Influenza Virus 2021-01-16 Completed Universit y of Vaccine 00:00:00 [facility] Influenza Virus 2021-01-16 Completed Universit y of Vaccine 00:00:00 [facility] Influenza Virus 2021-01-16 Completed Universit y of Vaccine 00:00:00 [facility] Influenza Virus 2021-01-16 Completed Universit y of Vaccine 00:00:00 [facility] Influenza Virus 2021-01-16 Completed Universit y of Vaccine 00:00:00 [facility] Influenza Virus 2021-01-16 Completed Universit y of Vaccine 00:00:00 [facility] SARS-COV-2 COVID-19 2020-10-16 Completed Unive rsity of PEDRO/J&J VACCINE 00:00:00 [facility] SARS-COV-2 COVID-19 2020-10-16 Completed Unive rsity of PEDRO/J&J VACCINE 00:00:00 [facility] SARS-COV-2 COVID-19 2020-10-16 Completed Unive rsity of PEDRO/J&J VACCINE 00:00:00 [facility] SARS-COV-2 COVID-19 2020-10-16 Completed Unive rsity of PEDRO/J&J VACCINE 00:00:00 [facility] SARS-COV-2 COVID-19 2020-10-16 Completed Unive rsity of PEDRO/J&J VACCINE 00:00:00 [facility] SARS-COV-2 COVID-19 2020-10-16 Completed Unive rsity of PEDRO/J&J VACCINE 00:00:00 [facility] Influenza Virus 2020-01-21 Completed Universit y of Vaccine 00:00:00 [facility] Influenza Virus 2020-01-21 Completed Universit y of Vaccine 00:00:00 [facility] Influenza Virus 2020-01-21 Completed Universit y of Vaccine 00:00:00 [facility] Influenza Virus 2020-01-21 Completed Universit y of Vaccine 00:00:00 [facility] Influenza Virus 2020-01-21 Completed Universit y of Vaccine 00:00:00 [facility] Influenza Virus 2020-01-21 Completed Universit y of Vaccine 00:00:00 [facility] Zoster Vaccine 2019-07-17 Completed University of Recombinant 00:00:00 [facility] Zoster Vaccine 2019-07-17 Completed University of Recombinant 00:00:00 [facility] Zoster Vaccine 2019-07-17 Completed University of Recombinant 00:00:00 [facility] Zoster Vaccine 2019-07-17 Completed University of Recombinant 00:00:00 [facility] Zoster Vaccine 2019-07-17 Completed University of Recombinant 00:00:00 [facility] Zoster Vaccine 2019-07-17 Completed University of Recombinant 00:00:00 [facility] Td 2019-03-29 Completed University of 00:00:00 [facility] Td 2019-03-29 Completed University of 00:00:00 [facility] Td 2019-03-29 Completed University of 00:00:00 [facility] Td 2019-03-29 Completed University of 00:00:00 [facility] Td 2019-03-29 Completed University of 00:00:00 [facility] Td 2019-03-29 Completed University of 00:00:00 [facility] Influenza Virus 2018-02-18 Completed Universit y of Vaccine 00:00:00 [facility] Pneumococcal 2018-02-18 Completed University o f Polysaccharide, 00:00:00 [place] [facility] PPSV23 (PNEUMOVAX[place] Influenza Virus 2018-02-18 Completed Universit y of Vaccine 00:00:00 [facility] Pneumococcal 2018-02-18 Completed University o f Polysaccharide, 00:00:00 [place] [facility] PPSV23 (PNEUMOVAX) [place] Influenza Virus 2018-02-18 Completed Universit y of Vaccine 00:00:00 [facility] Pneumococcal 2018-02-18 Completed University o f Polysaccharide, 00:00:00 [place] [facility] PPSV23 (PNEUMOVAX) Branch Influenza Virus 2018-02-18 Completed Universit y of Vaccine 00:00:00 [facility] Pneumococcal 2018-02-18 Completed University o f Polysaccharide, 00:00:00 [place] [facility] PPSV23 (PNEUMOVAX) Branch Influenza Virus 2018-02-18 Completed Universit y of Vaccine 00:00:00 [facility] Pneumococcal 2018-02-18 Completed University o f Polysaccharide, 00:00:00 [place] [facility] PPSV23 (PNEUMOVAX) Branch Influenza Virus 2018-02-18 Completed Universit y of Vaccine 00:00:00 [facility] Pneumococcal 2018-02-18 Completed University o f Polysaccharide, 00:00:00 [place] [facility] PPSV23 (PNEUMOVAX) Branch Influenza Virus 2008-03-19 Completed Universit y of Vaccine 00:00:00 [facility] Pneumococcal 2008-03-19 Completed University o f Polysaccharide, 00:00:00 [place] [facility] PPSV23 (PNEUMOVAX) Branch Influenza Virus 2008-03-19 Completed Universit y of Vaccine 00:00:00 [facility] Pneumococcal 2008-03-19 Completed University o f Polysaccharide, 00:00:00 [place] [facility] PPSV23 (PNEUMOVAX) Branch Influenza Virus 2008-03-19 Completed Universit y of Vaccine 00:00:00 [facility] Pneumococcal 2008-03-19 Completed University o f Polysaccharide, 00:00:00 [facility] ical PPSV23 (PNEUMOVAX) Branch Influenza Virus 2008-03-19 Completed Universit y of Vaccine 00:00:00 [facility] Pneumococcal 2008-03-19 Completed University o f Polysaccharide, 00:00:00 [place] [facility] PPSV23 (PNEUMOVAX) Branch Influenza Virus 2008-03-19 Completed Universit y of Vaccine 00:00:00 [facility] Pneumococcal 2008-03-19 Completed University o f Polysaccharide, 00:00:00 [place] [facility] PPSV23 (PNEUMOVAX) Branch Influenza Virus 2008-03-19 Completed Universit y of Vaccine 00:00:00 [facility] Pneumococcal 2008-03-19 Completed University o f Polysaccharide, 00:00:00 [place] [facility] PPSV23 (PNEUMOVAX) [place] Vital Signs Vital Name Observation Time Observation Value Comments Source Systolic blood 2022-02-10 105 mm[Hg] University of pressure 16:35:00 [facility] Diastolic blood 2022-02-10 57 mm[Hg] University o f pressure 16:35:00 [facility] Heart rate 2022-02-10 65 /min University of 16:35:00 [facility] Body temperature 2022-02-10 36.22 Sandy University of 16:35:00 [facility] Respiratory rate 2022-02-10 18 /min University of 16:35:00 [facility] Oxygen saturation 2022-02-10 98 /min University of in Arterial blood 16:35:00 [place] [facility] by Pulse oximetry Branch Body weight 2022-02-10 74.98 kg University of 08:16:00 [facility] BMI 2022-02-10 25.89 kg/m2 University of 08:16:00 [facility] Body height 2022-02-10 170.2 cm Height before University of 01:18:00 Bilat BKA [facility] Systolic blood 2021-11-09 124 mm[Hg] University of pressure 23:00:00 [facility] Diastolic blood 2021-11-09 69 mm[Hg] University o f pressure 23:00:00 [facility] Heart rate 2021-11-09 72 /min University of 23:00:00 [facility] Respiratory rate 2021-11-09 25 /min University of 23:00:00 [facility] Oxygen saturation 2021-11-09 98 /min University of in Arterial blood 23:00:00 [facility] uriel by Pulse oximetry Branch Body temperature 2021-11-09 37.22 Sandy University of 20:28:39 [facility] Body height 2021-11-09 170.2 cm University of 20:16:00 [facility] Body weight 2021-11-09 71.215 kg University of 20:16:00 [facility] BMI 2021-11-09 24.59 kg/m2 University of 20:16:00 [facility] Systolic blood 2021-11-05 134 mm[Hg] University of pressure 10:00:00 [facility] Diastolic blood 2021-11-05 78 mm[Hg] University o f pressure 10:00:00 [facility] Heart rate 2021-11-05 81 /min University of 10:00:00 [facility] Body temperature 2021-11-05 36.28 Sandy University of 08:10:00 [place] [facility] Respiratory rate 2021-11-05 18 /min [facility] 08:00:00 [facility] Oxygen saturation 2021-11-05 99 /min [facility] Arterial blood 08:00:00 [facility] by Pulse oximetry [place] Body height 2021-11-05 170.2 cm [facility] 05:48:00 [facility] Body weight 2021-11-05 71.215 kg [facility] 05:48:00 [facility] BMI 2021-11-05 24.59 kg/m2 [facility] 05:48:00 [facility] Procedures Procedure Date / Time Performing Clinician Source Performed INSURANCE CORRESPONDENCE 2022-04-19 06:01:00 Doctor Unassigned, [facility] [place] [facility] [place] TRANSTHORACIC ECHO (TTE) 2022-02-10 13:16:00 Martha Rowe [facility] COMPLETE W/ CONTRAST Medical Bra nch PHOSPHORUS 2022-02-10 10:22:00 Martha Rowe [facility] MAGNESIUM 2022-02-10 10:22:00 Martha Roew [facility] TROPONIN I 2022-02-10 10:22:00 Martha Rowe [facility] COMP. METABOLIC PANEL 2022-02-10 10:22:00 Martha Rowe [facility] ([id number]) [facility] CBC WITH DIFF 2022-02-10 10:22:00 Martha Rowe [facility] CREATINE KINASE 2022-02-10 04:37:00 Martha Rowe [facility] URIC ACID 2022-02-10 04:37:00 Martha Rowe [facility] FERRITIN SERUM 2022-02-10 04:37:00 Martha Rowe [facility] FOLATE 2022-02-10 04:37:00 Martha Rowe [facility] TROPONIN I 2022-02-10 04:37:00 Martha Rowe [facility] THYROID STIMULATING 2022-02-10 04:37:00 [facility]e [facility] HORMONE Medical Branch LIPID PANEL ([id number])(TOTAL 2022-02-10 04:37:00 [facility] CHOLE[facility], Medical Branch TRIGLYCERIDES, HDL) IRON PANEL 2022-02-10 04:37:00 Martha Rowe [facility] GLYCOSYLATED HEMOGLOBIN 2022-02-10 04:37:00 Martha Rowe [facility] (A1C) [facility] N-TERMINAL PRO-BNP 2022-02-10 04:37:00 Jae daisy [facility] VITAMIN D, 25-OH 2022-02-10 04:37:00 Jae daisy [facility] COVID-19 (ID NOW RAPID 2022-02-10 04:37:00 Martha Rowe [facility] TESTING) [facility] B-TYPE NATRIURETIC FACTOR 2022-01-30 18:10:[address] [facility] (BNP) Center XR CHEST 1 VW 2021-11-09 21:07:00 Troy Ku Mckenzie [facility] POCT GLUCOSE (AUTOMATED) 2021-11-09 20:25:00 Troy Ku [facility] MAGNESIUM 2021-11-09 20:19:00 Troy Ku [facility] TROPONIN I 2021-11-09 20:19:00 Troy Ku [facility] COMP. METABOLIC PANEL 2021-11-09 20:19:00 Troy Ku [facility] ([id number]) [facility] CBC WITH DIFF 2021-11-09 20:19:00 Troy Ku [facility] N-TERMINAL PRO-BNP 2021-11-09 20:19:00 Troy Ku [facility] XR CHEST 1 VW 2021-11-05 06:38:35 Mihaela Martin [facility] [id number] 2020-08-11 00:00:00 ALDMO [facility] [id number] 2020-08-11 00:00:00 ALDMO [facility] [id number] 2020-08-11 00:00:00 ALDMO [facility] [id number] 2020-08-11 00:00:00 ALDMO [facility] Computed tomography 2017-10-24 00:00:00 BROOKE ALEXIS LUCY [...] Clinicians Facility Department ID 2021-06-17 Outpatient 3 [id number] ENCKY MALDONADO [id number] [facility] 10:24:03 [id number] [facility] 2021-06-17 Outpatient 3 [id number] ENCKY REF [id number] [facility] 10:22:04 45977 [facility] [place] 2021-03-22 Emergency [facility] [id number] Univers 15:25:20 ity of [facility] 2021-03-22 Emergency [facility] [id number] Univers 10:56:41 ity of [facility] 2021-03-21 Emergency [facility] [id number] Univers 18:15:08 ity of [facility] 2021-03-21 Emergency [facility] [id number] Univers 17:18:22 ity of [facility] 2021-03-21 Emergency [facility] [id number] Univers 12:58:19 ity of [facility] 2021-03-21 Emergency [facility] [id number] Univers 04:06:22 ity of [facility] 2021-03-21 Emergency [facility] [id number] Univers 00:12:27 ity of [facility] 2021-03-20 Emergency [facility] [id number] Univers 00:55:44 ity of [facility] 2021-03-19 Emergency [facility] [id number] Univers 17:28:47 ity of [facility] 2021-03-19 Emergency [facility] [id number] Univers 03:16:03 ity of [facility] 2021-03-18 Emergency [facility] [id number] Univers 13:56:50 ity of [facility] 2020-08-23 Inpatient HCACL FERNANDO [id number] [facility] 17:41:00 84 [facility] 2020-04-04 Inpatient Marko, HCAMN HCAMN [id number] [facility] 14:40:00 Edward 33 [facility] 2019-10-15 Inpatient RADHA Shah, HCAPM ENDO [id number] [facility] 15:30:00 Finn [address] [facility] 2022-04-19 2022-04-19 Orders Doctor JOSE 1.2.840.114 [id number] Univers 00:00:00 00:00:00 Only Unassigned, [place] [id number] ity of [place] [facility] [id number] Juan J as [id number] [facility] 009 Branch 2022-02-11 2022-02-11 Transition LATRICE Harding 1.2.840.114 [id number] Univers 00:00:00 00:00:00 of Care Josselyntoni DUQUE [id number] it y of [id number] [id number] [facility] 403 Branch 2022-02-09 2022-02-10 Outpatient U JAE [facility] D[facility] [id number] Univers 19:53:00 13:45:00 MARTHA ity of [facility] 2022-02-09 2022-02-10 Hospital Ana Maria Meza [facility] 1.2.840.114 [id number] Univers 19:53:00 13:45:00 Encounter Martha Rowe [id number] ity of [id number] [id number] [facility] 081 Branch 2022-01-30 2022-01-30 [facility] [id number] 00:00:00 00:00:00 Requisitio Esme [facility] 2022-01-30 2022-01-[address] [facility] [id number] 00:00:00 00:00:00 Requisitio Esme [facility] 2021-11-09 2021-11-09 Emergency X Troy KU [facility] ERT [id number] Univers 15:15:00 18:32:00 ity of [facility] 2021-11-09 2021-11-09 Emergency Troy Ku [facility] 1.2.840.114 [id number] Univers 15:15:00 18:32:00 Mckenzie PEREZ [id number] i ty of [place] [id number] [facility] [id number] [place] [id number] [place] 2021-11-05 2021-11-05 Emergency [facility] [id number] Univers 00:44:00 06:53:00 MIHAELA baugh [facility] 2021-11-05 2021-11-05 Emergency [facility] [id number] Univers 00:44:00 06:53:00 Mihaela PEREZ [id number] ity of [facility] [place] [facility] [id number] [facility] [id number] [facility] 084 [place] 2021-11-04 2021-11-04 Transition Feliciano CLAUDETTETanya 1.2.840.114 [id number] Univers 00:00:00 00:00:00 of Care Micaela DUQUE [id number] it y of [place] [id number] [facility] [id number] [facility] 403 Branch 2021-11-02 2021-11-03 Outpatient X BRAYDON [facility] [id number] Univers 22:35:00 15:46:00 OC baugh [facility] 2021-11-02 2021-11-03 Emergency Curtis Xavier [facility] 1.2.840. 114 [id number] Univers 22:35:00 15:46:00 Oc Bryson [id number] ity of [place] [id number] [facility] [id number] [facility] 081 Branch 2021-11-02 2021-11-03 Outpatient X BRAYDON [facility] [id number] Univers 22:35:00 15:46:00 OC itvashti [facility] 2021-11-01 2021-11-01 Transition LATRICE Feliciano 1.2.840.114 [id number] Univers 00:00:00 00:00:00 of Care Micaela DU[place] [id number] it y of [place] 4.2.7.2.686 [facility] [id number] [facility] 403 Branch 2021-10-27 2021-10-29 Outpatient X DERRICK [facility] [id number] Univers 17:41:00 14:03:00 ANA MARIA vashti [facility] 2021-10-27 2021-10-29 Emergency Jameson Mejia [facility] 1.2.840. 114 [id number] Univers 17:41:00 14:03:00 Lizett Gerardo [id number] ity of [place] 4.2.7.2.686 [facility] [id number] [address] 2021-10-27 2021-10-29 [facility] [id number] Univers 17:41:00 14:03:00 ANA MARIA vashti [facility] 2021-10-21 2021-10-22 Emergency [facility] [id number] Univers 20:24:00 04:18:00 JYOTI [facility] 2021-10-21 2021-10-22 Emergency [facility] [id number] Univers 20:24:00 04:18:00 Jyoti PEREZ [id number] i Joy 4.2.7.2.686 [facility] [id number] [facility] 084 Branch 2021-10-20 2021-10-20 Transition LATRICE Aleman 1.2.840.114 [id number] Univers 00:00:00 00:00:00 of Care Rico A [place] [id number] [id number] [id number] [facility] 403 Branch 2021-10-15 2021-10-18 Outpatient X DERRICK [facility] [id number] Univers 16:42:00 13:52:00 ANA MARIA itvashti [facility] 2021-10-15 2021-10-18 Emergency Jameson Mejia [facility] 1.2.840. 114 [id number] Univers 16:42:00 13:52:00 Ana Maria Meza [id number] ity of [place] [id number] [facility] 081 Branch 2021-07-23 2021-07-23 Transition LATRICE Farooq 1.2.840.114 [id number] Univers 00:00:00 00:00:00 of Care Marcella [place] [id number] i [id number] [address] 2021-07-19 2021-07-22 Inpatient [facility] [id number] Univers 09:10:00 17:00:00 GEOFFREY baugh [facility] 2021-07-19 2021-07-22 [facility] Brandyn Dumont [facility] 1.2.840.1 [id number] Univers 09:10:00 17:00:00 Encounter Geoffrey Hill [facility] [id number] ity of [id number] [id number] [facility] 109 Branch ([facility]) 2021-07-21 2021-07-21 Outpatient Wong_H VFP VFP [id number] Village 06:58:00 06:58:00 [id number] Family Practic e 2021-07-13 2021-07-13 Transition LATRICE Aleman 1.2.840.114 [id number] Univers 00:00:00 00:00:00 of Care Rico DU[place] [id number] [id number] [id number] [address] 2021-06-28 2021-07-12 Inpatient X ANGEL [facility] [id number] Univers 10:43:00 18:25:00 AMBIKA vashti [facility] 2021-06-28 2021-07-12 [facility] Jameson Mejia [facility] 1.2.840.1 [id number] Univers 10:43:00 18:25:00 Encounter Troy Ku [id number] ity of Ambika Fernandez [place] 4.2.7.2.686 [facility] [id number] [facility] 081 Branch 2021-02-15 2021-02-15 Outpatient R DONALDO, [facility] [id number] Univers 15:00:00 15:00:00 ALECIA [facility] 2021-01-11 2021-01-11 [facility] [id number] Univers 10:45:00 10:45:00 GINA baugh o f [facility] 2021-01-05 2021-01-05 Transition Latrice Aleman 1.2.840.114 [id number] Univers 00:00:00 00:00:00 of Care Rico [place] [id number] ity of [place] [id number] [facility] 403 Branch 2021-01-01 2021-01-04 [facility] Wayne Can [facility] 1.2.840.1 [id number] Univers 14:18:00 18:10:00 Encounter Lizett Gerardo [id number] it[place] of [id number] [id number] [facility] 081 Branch 2021-01-01 2021-01-01 Orders Doctor JOSE 1.2.840.114 [id number] Univers 00:00:00 00:00:00 Only Unassigned, [place] [id number] ity of [place] [facility] 4.2.7.2.686 Juan J as [id number] [facility] 009 Branch 2020-12-17 2020-12-17 Transition Latrice Harding 1.2.840.114 [id number] Univers 00:00:00 00:00:00 of Care Josselyn [place] [id number] it y of [place] 4.2.7.2.686 [facility] [id number] [facility] 403 Branch 2020-12-14 2020-12-16 Emergency Jyoti Cedeno S [facility] 1.2.840.1 [id number] Univers 17:50:00 17:46:00 Ana Maria Meza [id number] ity of [place] 4.2.7.2.686 [facility] [id number] [facility] 081 Branch 2020-11-16 2020-11-16 Orders Doctor JOSE 1.2.840.114 [id number] Univers 00:00:00 00:00:00 Only Unassigned, [place] [id number] ity of [place] [facility] 4.2.7.2.686 Juan J [id number] [facility] 009 Branch 2020-10-30 2020-11-05 Inpatient EM Debi, [facility] [id number] [facility] 16:50:00 13:52:00 Fede [id number] [facility] 2020-10-31 2020-10-31 Outpatient ANNEL Carrera LABO [id number] [facility] 08:22:00 08:22:00 Fede 73 [facility] 2020-10-28 2020-10-28 Hospital Radiology [facility] 1.2.840.114 [id number] Univers 08:30:17 23:59:00 Encounter Sera 350.1.13.10 ity of [place] 4.2.7.2.686 [facility] [place] [phone] [facility] 8[address] Branch 2020-10-28 2020-10-28 Hospital Radiology [facility] 1.2.840.114 [id number] 08:30:17 23:59:00 Encounter [place] 350.1.13.10 [place] 4.2.7.2.686 [place] [id number] 807 2020-10-28 2020-10-28 Outpatient R RADIOLOGY [facility] [id number] Univers 00:00:00 00:00:00 ity of [place] [facility] 2020-10-12 2020-10-12 [facility] 1.2.840.114 [id number] Univers 14:02:10 14:50:48 Visit Bryan Sera 350.1.13.10 i [place] [phone] Ms dical [facility] 204 [facility] 2020-10-12 2020-10-12 Outpatient R CHANTELLE [facility] [id number] Univers 14:00:00 14:50:48 BRYAN ity [facility] 2020-10-12 2020-10-12 [facility] [id number] Univers 14:00:00 14:00:00 [facility]06 2020-10-06 [facility] 1.2.840.114 [id number] Univers 10:43:51 11:59:29 Visit Gina Perez 350.1.13.10 ity [facility] [place] [phone] Ms dical [address] 2020-10-06 2020-10-06 Office [facility] 1.2.840.114 [id number] 10:43:51 11:59:29 Visit Gina Perez 350.1.13.10 [place] 4.2.7.2.686 Professio [phone] [address] 2020-10-06 2020-10-06 Outpatient R IVANA [facility] [id number] Univers 10:30:00 10:30:00 GINA baugh o f [facility] 2020-10-06 2020-10-06 Orders Doctor GARCIA 1.2.840.114 [id number] Univers 00:00:00 00:00:00 Only Unassigned, CAROLINA 350.1.13.10 ity of [place] [facility] 4.2.7.2.686 Juan J as [phone] [address] 2020-09-28 2020-09-28 Emergency [facility] 1.2.840.114 [id number] Univers 17:28:00 21:08:00 Elmerji Anuj Perez 350.1.13.10 ity of [place] 4.2.7.2.686 [facility] [phone] [facility] 084 Branch 2020-09-28 2020-09-28 Transition Latrice French 1.2.840.114 [id number] Univers 00:00:00 00:00:00 of Care Gilda Duque 350.1.13.10 it y of [place] [phone] [facility] 403 Branch 2020-09-23 2020-09-26 [facility] Wayne Can [facility] 1.2.840.1 14 [id number] Univers 13:50:00 18:28:00 Encounter Ambika Fernandez 350.1.13.10 ity of [place] 4.2.7.2.686 [facility] [phone] [place] 491541 [place] 2020-09-23 2020-09-26 Inpatient X GABRIELEALEJANDRA [facility] [id number] Univers 13:50:00 18:28:00 AMBIKA baugh [facility] 2020-09-22 2020-09-22 [facility] [id number] Univers 09:45:00 09:45:00 GINA palacio [facility] 2020-09-10 2020-09-10 Outpatient [facility] [id number] Univers 16:15:00 16:15:00 BRYAN baugh [facility] 2020-09-09 2020-09-09 Transition Latrice Aleman 1.2.840.114 [id number] Univers 00:00:00 00:00:00 of Care Rico Duque 350.1.13.10 it[place] [phone] [address] 2020-09-08 2020-09-08 Outpatient [facility] [id number] Univers 08:30:00 08:30:00 GINA palacio [facility] 2020-09-02 2020-09-07 Hospital Jose Guy [facility] 1.2.840.114 [id number] Univers 16:46:00 18:45:00 Encounter Alis Garcia [facility] 350. 1.13.10 ity of [place] 4.2.7.2.686 [place] Kaylyn Calvin Mejia [phone] [address] ([facility]) 2020-08-26 2020-08-26 Office Tha Gunter [facility] 1.2.840.114 [id number] Univers 10:44:06 11:14:06 Visit [facility] 350.1.13.10 it y of [place] [phone] [address] Office Building 2020-08-26 2020-08-26 Outpatient R THA GUNTER [facility] [id number] Univers 10:30:00 10:30:00 ity [facility] 2020-08-25 2020-08-25 Outpatient Tim HEATH [facility] [id number] Univers 10:00:00 10:00:00 GINA palacio [facility] 2020-08-24 2020-08-24 Outpatient R YENI [facility] [id number] Univers 09:00:00 09:00:00 DEIDRE baugh [facility] 2020-08-21 2020-08-21 Office [facility] 1.2.840.114 [id number] Univers 08:43:52 09:13:46 Visit Gina Perez 350.1.13.10 ity of [place] 4.2.7.2.686 [place] [phone] [place] [address] Branch Building 2020-08-21 2020-08-21 Outpatient Tim [facility] [id number] Univers 08:30:00 08:30:00 GINA palacio [facility] 2020-08-10 2020-08-14 Inpatient EM ANNEL MontanezCL INTE.02 [id number] [facility] 09:09:00 18:56:00 Johnie Reardon [facility] 2020-08-11 2020-08-11 Outpatient [facility] [id number] Univers 09:15:00 09:15:00 GINA palacio [facility] 2020-08-07 2020-08-07 Outpatient [facility] [id number] Univers 10:00:00 10:00:00 GINA palacio [facility] 2020-07-27 2020-08-06 [facility] Jameson Mejia 1.2.840.1 14 [id number] Univers 12:13:00 17:15:00 Encounter Minnie Cardona 350.1.13.10 ity of [facility] 4.2.7.2.686 [place] Drew Noriega [phone] [facility] Johnie Skinner [facility] [address] [place] [address] 2020-07-27 2020-08-06 Inpatient JOHNIE SKINNER [facility] [id number] Univers 12:13:00 17:15:00 ity of [facility] 2020-07-24 2020-07-24 Outpatient R [facility] [id number] Univers 13:00:00 13:00:00 GINA workman [facility] 2020-07-21 2020-07-21 Transition Latrice Aleman 1.2.840.114 [id number] Univers 00:00:00 00:00:00 of Care Rico Duque 350.1.13.10 ity of [place] 4.2.7.2.686 Noe beckett [phone] [address] 2020-07-10 2020-07-20 [facility] Janeth Leal 1.2.84 0.114 [id number] Univers 19:24:00 21:51:00 Encounter Oc Bryson 350.1.13.10 ity of Janeth Leal [facility] 4.2.7.2.686 [place] Minnie Cardona [phone] Medical Lisa Marroquin [address] 2020-07-17 2020-07-17 Outpatient [facility] [id number] Univers 10:00:00 10:00:00 JOSE itvashti [facility] 2020-07-10 2020-07-10 Outpatient R IVANA [facility] [id number] Univers 08:45:00 08:45:00 GINA franciscovashti ji anuj [facility] 2020-06-15 2020-06-15 Telephone [facility] 1.2.330.908 [id number] Univers 00:00:00 00:00:00 Jose Perez 350.1.13.10 i ty of [place].2.[place] [facility] [phone] Ms dical nal [address] Building 2020-06-11 2020-06-11 Office [facility] 1.2.840.114 [id number] Univers 13:43:55 13:58:55 Visit Jose Reyes 350.1.13.10 it y of [place].686 [place] - [phone] Med ical [facility] 188 [address] 2020-06-11 2020-06-11 Outpatient R JANKI [facility] [id number] Univers 13:30:00 13:30:00 JOSE baugh [facility] 2020-06-03 2020-06-03 Transition Latrice Aleman 1.2.840.114 [id number] Univers 00:00:00 00:00:00 of Care Rico Duque 350.1.13.10 ity of [place] [id number] [facility] 403 [address] 2020-05-29 2020-06-02 [facility] Jameson Mejia [facility] 1.2.840.1 14 [id number] Univers 09:12:00 16:02:00 Encounter Lizett Gerardo 350.1.13.10 ity of [place] 4.2.7.2.686 [facility] [phone] [facility] 081 [address] 2020-05-29 2020-06-02 Inpatient X JAE [facility] [id number] Univers 09:12:00 16:02:00 MARTHA baugh [facility] 2020-05-29 2020-05-29 Outpatient R JANKI [facility] [id number] Univers 10:15:00 10:15:00 JOSE baugh [facility] 2020-04-23 2020-04-23 Office [facility] 1.2.840.114 [id number] Univers 13:48:18 14:03:18 Visit Jose [facility] 350.1.13.10 it y of [place] - [phone] [address] 2020-04-23 2020-04-23 Outpatient [facility] [id number] Univers 13:30:00 13:30:00 JOSE baugh [facility] 2020-04-23 2020-04-23 Orders Doctor JOSE 1.2.840.114 [id number] Univers 00:00:00 00:00:00 Only Unassigned, CAROLINA 350.1.13.10 ity [place] [facility] 4.2.7.2.686 Juan J as [phone] [facility] 00[address] [place] 2020-04-09 2020-04-09 Office [facility] 1.2.840.114 [id number] Univers 13:58:45 14:13:45 Visit Jose [facility] 350.1.13.10 it y of [place] 4.2.7.2.[address] [facility] s [place] - [phone] [address] 2020-04-09 2020-04-09 Outpatient [facility] [id number] Univers 14:00:00 14:00:00 JOSE baugh [facility] 2020-03-27 2020-03-27 Transition Latrice Aleman 1.2.840.114 [id number] Univers 00:00:00 00:00:00 of Care Rico Duque 350.1.13.10 ity of [place] [phone] [facility] 403 [address] 2020-03-15 2020-03-26 Hospital Jameson Mejia 1.2.840.1 14 [id number] Univers 23:48:00 18:02:00 Encounter Kandis Hough 350.1.13.10 ity of Janki [facility] 4.2.7.2.68 6 [place] [phone] [facility] 098 Branch 2020-03-18 2020-03-18 Anesthesia Caio Najera Nancy 1. 2.840.114 [id number] Univers 13:52:00 16:42:00 Stephanie Franks 350.1.13.10 ity of [facility] 4.2.7.2.686 [place] J as [phone] [facility] 103 [address] 2020-02-06 2020-02-06 Transition Claudette Alemantanya 1.2.840.114 [id number] Univers 00:00:00 00:00:00 of Care Rico Zelayay 350.1.13.10 ity of [place] [phone] [facility] 403 [address] 2020-02-03 2020-02-05 Hospital Óscar Hermosillo [facility] 1.2.8 40.114 [id number] Univers 16:55:00 20:40:00 Encounter Martha Rowe 350.1.13.10 ity of [place] [phone] [facility] 081 [address] 2020-01-17 2020-01-17 Out[facility] [id number] Univers 13:30:00 13:30:00 SENDIL ity of [facility] 2019-12-02 2019-12-02 Outpatient R [facility] [id number] Univers 15:00:00 15:00:00 ity of [facility] 2019-11-16 2019-11-21 Hospital Lopez Velazquez [facility] 1.2.840 .114 [id number] Univers 16:35:23 14:12:00 Encounter Heather Hermosillo 350.1.13.1 0 ity of [place].2.[place] [phone] [place] 4915[address] Branch 2019-09-17 2019-09-18 [facility] 1.2.268.774 [id number] Univers 20:30:04 00:41:00 Valery Perez 350.1.13.10 ity of [place] [phone] [facility] 084 [place] 2019-09-17 2019-09-18 Emergency X ALFIE [facility] ERT [id number] Univers 20:30:04 00:41:00 WAKILI ity [facility] 2019-09-05 2019-09-05 Outpatient [facility] [id number] Univers 14:00:00 14:00:00 SENDIL ity [facility] 2019-09-05 2019-09-05 Telemedici [facility] 1.2.840.114 [id number] Univers 08:17:17 08:47:17 ne Visit Sendil Hannah Perez 350.1.13.10 ity of [place] [phone] Ms dicca nal [address] [place] [address] 2019-09-05 2019-09-05 Telephone [facility] 1.2.610.962 [id number] Univers 00:00:00 00:00:00 Sendil Hannah Perez 350.1.13.10 ity of [place].2.[place] [phone] Ms dicca nal [address] [place] [address] 2019-09-03 2019-09-03 Outpatient R ANNA [facility] [id number] Univers 10:30:00 10:30:00 SENDIL ity [facility] 2019-08-20 2019-08-20 Telephone [facility] 1.2.946.023 [id number] Univers 00:00:00 00:00:00 Nika SHAW 350.1.13.10 ity of [place].2.[place] [facility] [phone] Ms dical [address] [place] 2019-08-19 2019-08-19 Refill Nancy Lee 1.2.840.114 [id number] Univers 00:00:00 00:00:00 Lola Figueroa 350.1.13.10 it y of Hospital 4.2.7.2.686 [place] J as [phone] [facility] 090 [place] 2019-08-16 2019-08-16 Refill Nancy Lee 1.2.840.114 [id number] Univers 00:00:00 00:00:00 Lola aCrolina 350.1.13.10 it y of [facility] 4.2.7.2.686 [place] J as [phone] [facility] 090 [address] 2019-08-15 2019-08-15 Emergency [facility] 1.2.840.114 [id number] Univers 11:58:21 15:28:00 Demarcus Perez 350.1.13.10 i ty of [place] 4[place].2.[place] [phone] [facility] 084 Branch 2019-08-15 2019-08-15 Emergency [facility] ERT [id number] Univers 11:58:21 15:28:00 DEMARCUS ity [facility] 2019-08-15 2019-08-15 Case JOSE Castillo 1.2.840.114 [id number] Univers 00:00:00 00:00:00 Management Ninfa FIGUEROA 350.1.13.10 ity [facility] 4.2.7.2.686 [place] J as [phone] [facility] 008 Branch 2019-08-15 2019-08-15 Telephone Anna [facility] 1.2.780.503 [id number] Univers 00:00:00 00:00:00 Ninfa Perez 350.1.13.10 ity of [place] 4[place].2.[place] [facility] [phone] [facility] 059 [facility] 2019-08-12 2019-08-12 Transition Latrice Ramirez 1.2.840.114 [id number] Univers 00:00:00 00:00:00 of Care Joan Duque 350.1.13.10 ity of [place] 4.2.7.2.[place] [phone] [facility] 403 [address] 2019-08-06 2019-08-09 Emergency Wayne Can [facility] 1.2.840. 114 [id number] Univers 14:06:47 15:19:00 Lizett Gerardo 350.1.13.10 ity of [place] 4.2.[place].2.[place] [phone] [facility] 081 [address] 2019-08-06 2019-08-09 Outpatient X BRETT [facility] [id number] Univers 14:06:47 15:19:00 LIZETT ity of [facility] 2019-08-06 2019-08-06 Outpatient R TRAVIS, [facility] [id number] Univers 13:30:00 13:30:00 RICHMOND ity o f [facility] 2019-08-06 2019-08-06 Outpatient R TRAVIS, [facility] [id number] Univers 11:00:00 11:00:00 RICHMOND ity o f [facility] 2019-08-06 2019-08-06 Outpatient R TRAVIS, [facility] [id number] Univers 11:00:00 11:00:00 JUNIEJULIANN baugh o f [facility] 2019-08-06 2019-08-06 Orders Doctor JOSE 1.2.840.114 [id number] Univers 00:00:00 00:00:00 Only Unassigned, [place] 350.1.13.10 ity of [place] [facility] 4.2.7.2.686 Juan J as [phone] [facility] 009 Branch 2019-07-19 2019-07-19 Transition Latrice French 1.2.840.114 [id number] Univers 00:00:00 00:00:00 of Care Gilda Duque 350.1.13.10 it y of [place].2.[place] [id number] [facility] 403 [address] 2019-07-17 2019-07-18 Emergency Valery Carrillo 1.2.840 .114 [id number] Univers 21:36:10 21:05:00 Abu-Josy Tareq [place] 350.1.13.1 0 ity of Hospital 4.2.7.2.686 [place] J as [phone] [facility] 090 [address] 2019-07-17 2019-07-18 Outpatient X ABU-JOSY, TAREQ [facility] [id number] Univers 21:36:10 21:05:00 ABU-JOSY, TAREQ ity of [facility] 2019-07-03 2019-07-03 Transition Latrice French 1.2.840.114 [id number] Univers 00:00:00 00:00:00 of Care Gilda Duque 350.1.13.10 it y of [place] [phone] [address] 2019-07-01 2019-07-01 Transition Latrice French 1.2.840.114 [id number] Univers 00:00:00 00:00:00 of Care Gilda Duque 350.1.13.10 it y of [place] 4[place].2.[place] [phone] [facility] 403 [place] 2019-06-27 2019-06-27 Transition Latrice French 1.2.840.114 [id number] Univers 00:00:00 00:00:00 of Care Gilda Duque 350.1.13.10 it y of [place] 4.[place].2.[place] [phone] [facility] 403 [place] 2019-06-24 2019-06-26 [facility] [id number] Univers 14:51:01 18:37:00 MICHAEL ity [facility] 2019-06-24 2019-06-26 Hospital Janeth Leal 1.2.84 0.114 [id number] Univers 14:51:01 18:37:00 Encounter Michael Shirley 350.1.1 3.10 ity of [facility] 4.2.7.2.686 [place] J as [phone] [facility] 090 [address] 2019-02-06 2019-02-06 Telephone JOSE Bhatt 1.2.840.114 [id number] Univers 00:00:00 00:00:00 Cortney FIGUEROA 350.1.13.10 i ty of [facility] 4.2.7.2.686 [place] J as [phone] [facility] 008 Branch 2019-02-05 2019-02-05 Emergency [facility] 1.2.020.410 [id number] Univers 17:30:29 21:52:00 Jyoti Perez 350.1.13.10 i ty of [place] 4.2.[place].2.[place] [phone] [place] 491544 Branch 2019-01-30 2019-01-30 Transition Claudette Quevedotanya 1.2.840.114 [id number] Univers 00:00:00 00:00:00 of Care Rhonda Duque 350.1.13.10 it y of [place] 4.[place].2.[place] [id number] [facility] 403 [address] 2019-01-24 2019-01-29 [facility] Wayne Can 1.2.840.1 14 [id number] Univers 16:01:37 14:55:00 Encounter Dennis Finley 350.1.13.10 ity [facility] 4.2.7.2.686 [place] J as [phone] [place] 491549 Branch 2019-01-22 2019-01-22 Transition EmyClaudettetanya 1.2.840.114 [id number] Univers 00:00:00 00:00:00 of Care Rhonda Duque 350.1.13.10 it y of [place] 4.[place].2.[place] [phone] [facility] 403 [address] 2019-01-16 2019-01-19 [facility] Carlos Allen 1.2.840.11 4 [id number] Univers 23:52:03 14:36:00 Encounter Martha Rowe 350.1.13.10 ity of [place], [facility] 4.2.7.2.686 [place] [phone] [place] [address] Branch 2017-10-23 2017-10-27 Discharged 1 [facility] [id number] 17:29:00 16:54:00 Inpatient ALEXIS 90 Luke s Patient [facility] 2017-04-03 2017-04-04 [facility]arted [facility] [id number] 23:17:00 03:53:00 Emergency LAIRD 56 Luke s Room Patient [facility] 2017-03-05 2017-03-09 Discharged ER [facility] [id number] 06:54:00 10:58:00 Inpatient NICHELLE 44 Luke s (obs) [facility] 2017-01-04 2017-01-05 Discharged [facility] [id number] 10:33:00 18:56:00 Inpatient 61 Favio s (obs) [facility] Orders Doctor JOSE 1.2.840.114 [id number] Univers 00:00:00 00:00:00 Only Unassigned, [place] 350.1.13.10 ity of [place] [facility] 4.2.7.2.686 Juan J as [phone] Medi uriel 009 Branch Results Test Description Test Time Test Comments Results Result Comments Source Transthoracic echo (TTE) 2022-02-10 17:43:07 Test Item Value Reference Range Interpretation Comme nts Height (test code = 7591765969) in Weight (test code = 8609250940) lbs Systolic BP (test code = 7323499721) mmHg Diastolic BP (test code = 4474632391) mmHg Heart Rate (test code = 0270850107) bpm BSA (test code = 0404075171) 1.86 m2 Ao root diam (test code = 1740838184) 3.10 cm Aortic root (test code = 6287164931) 3.1 cm Ao root annulus (test code = 3.1 cm 6112450710) LVOT diameter (test code = 1.83 cm 8296533213) LVOT area (test code = 5433191305) 2.60 cm2 LVIDD (test code = 9938081179) 4.80 cm Left Ventricular End Diastolic Volume 107.5 mL by Teichholz Method (test code = 7218282) IVS (test code = 5664665348) 1.35 cm Interventricular Septum Diastolic 1.35 cm Thickness by 2D (test code = 3445369) LVPWD (test code = 2631935641) 1.35 cm PW (test code = 5946385293) 1.35 cm 0.6-1.1 EF(Teich) (test code = 2403828900) 30.10 % LVIDS (test code = 9560089559) 4.10 cm Left Ventricular End Systolic Volume 75.1 mL by Teichholz Method (test code = 1009375) FS (test code = 8250619157) 14 % EF - 2D (test code = 13859714) 30.10 % LA size (test code = 7517852376) 4.1 cm TR Peak Haile (test code = 6210698900) 232.4 cm/s Triscuspid Valve Regurgitation Peak mmHg Gradient (test code = 0408834321) LAV(MOD-sp4) (test code = 4050174835) 103.10 mL E wave decelartion time (test code = 0.15 s 6303475304) MV stenosis pressure 1/2 time (test 44.6 ms code = 8560324112) MV Peak E Haile (test code = 110.2 cm/s 2170958666) MV Peak A Haile (test code = 28.7 cm/s 5745030677) E/A ratio (test code = 9730105650) ratio MR max PG (test code = 8385370099) 78.70 mm[Hg] MR max haile (test code = 6580046194) 443.40 cm/s Mr max haile (test code = 9953931785) 443.4 m/s MV Prop V (test code = 4207746335) 45.00 cm/s MV E/e' septal (test code = 9.2 cm/s 5361240988) Tapse (test code = 6522232128) 1.53 cm LVOT stroke volume (test code = 41.70 cm3 5069968671) LVOT peak haile (test code = 87.2 cm/s 7071570650) LVOT mn grad (test code = 9020384848) mmHg AV LVOT peak gradient (test code = mmHg 4099635929) LVOT peak VTI (test code = 15.8 cm 9710091550) LV V1 mean (test code = 4704037147) 51.30 cm/s Aortic valve mean velocity (test code 78.3 cm/s = 2367095621) Ao peak haile (test code = 5762757787) 111.8 cm/s Ao VTI (test code = 7378245359) 21.5 cm AV area by cont VTI (test code = 1.9 cm2 3663165764) AV area peak haile (test code = 2.1 cm2 8448239346) Ao max PG (test code = 3129200063) 5.00 mm[Hg] AV peak gradient (test code = mmHg 7023216922) AV valve area (test code = 1.94 cm2 5768212484) AV mean gradient (test code = mmHg 1440506095) Radiology Study observation (narrative) (test code = 26742-0) DIANE (test code = DIANE) Table formatting [...] lateral and apex.All other segments are normal. [id number] 12:01:08 Test Item Value Reference Interpretation Comments Range TROPONIN I (test 0.021 ng/mL See_Comment [Automated code = 2482448465) message] The system which generated this result [...] biotin. Lab Interpretation Normal (test code = 83108-5) [facility] 11:50:23 Test Item Value Reference Range Interpretation Comments MAGNESIUM (test code = 4367939951) 1.7 mg/dL 1.7-2.4 Lab Interpretation (test code = Normal 17919-5) [facility] MET[facility]OLIC PANEL (53592)2022-02-10 11:50:22 Test Item Value Reference Range Interpretation Comments NA (test code = 138 mmol/L 135-145 4549224708) K (test code = 3.9 mmol/L 3.5-5 4513823077) CL (test code = 108 mmol/L 98-108 5098488477) CO2 TOTAL (test code = 24 mmol/L 23-31 2281223442) AGAP (test code = 2-16 2173684325) BUN (test code = 19 mg/dL 7-23 4308951111) GLUCOSE (test code = 117 mg/dL 70-110 H 3502062671) CREATININE (test code = 0.91 mg/dL 0.6-1.25 0487510482) TOTAL BILI (test code = 1.0 mg/dL 0.1-1.2 3904093659) CALCIUM (test code = 8.5 mg/dL 8.6-10.6 L 8238161151) T PROTEIN (test code = 6.4 g/dL 6.3-8.2 4829067347) ALBUMIN (test code = 3.4 g/dL 3.5-5 L 1448367922) ALK PHOS (test code = 177 U/L 34-122 H 7545732235) ALTv (test code = 24 U/L 5-50 1742-6) AST(SGOT) (test code = 38 U/L 13-40 7438976064) eGFR (test code = mL/min/1.73m2 8776429342) DIANE (test code = DIANE) Association of [...] tests). Lab Interpretation Abnormal (test code = 45519-7) [facility] 11:50:22 Test Item Value Reference Range Interpretation Comments PHOSPHORUS (test code = 5290960417) 5.1 mg/dL 2.5-5 H Lab Interpretation (test code = Abnormal 57030-0) [facility] WITH [id number] 11:19:02 Test Item Value Reference Range Interpretation [...] RDW-SD (test code = 48.0 fL 38.5-51.6 13216-8) RDW-CV (test code = 14.2 % 12.1-15.4 788-0) PLT (test code = See_Comment [Automated 777-3) message] The sy stem which generated this result transmitted reference range : 150 - 328 10*3/ ?L. The reference r batsheva was not used to interpret this result as normal/abnormal . MPV (test code = 10.2 fL 9.8-13 97794-7) NRBC/100 WBC (test See_Comment [Automat ed code = 4618195403) message] The system which generated this result transmitted reference range : 0.0 - 10.0 /100 WBCs. The refer ence range was not u sed to interpret th is result as normal/abnormal . NRBC x10^3 (test code See_Comment [Auto mated = 0901405303) message] The s ystem which generated this result transmitted reference range : 10*3/?L. The reference range was not used to interpret this result as normal/abnormal . GRAN MAT (NEUT) % 68.5 % (test code = 770-8) IMM GRAN % (test code 0.40 % = 0810927114) LYMPH % (test code = 19.0 % 736-9) MONO % (test code = 8.3 % 5905-5) EOS % (test code = 3.4 % 713-8) BASO % (test code = 0.4 % 706-2) GRAN MAT x10^3(ANC) 3.65 10*3/uL 1.99-6.95 (test code = 9600621065) IMM GRAN x10^3 (test 0-0.06 code = 4352856102) LYMPH x10^3 (test code 1.01 10*3/uL 1.09-3.23 L = 731-0) MONO x10^3 (test code 0.44 10*3/uL 0.36-1.02 = 742-7) EOS x10^3 (test code = 0.18 10*3/uL 0.06-0.53 711-2) BASO x10^3 (test code 0.01-0.09 = 704-7) Lab Interpretation Abnormal (test code = 72559-1) [facility] 23:33:12 Test Item Value Reference Range Interpretation Comments BNP (test code = 31692-0) 443 pg/mL 0-100 H DIANE (test code = DIANE) Sulky Driver ID - ADRY Lab Interpretation (test Abnormal code = 32046-8) [facility] 23:33:12 Test Item Value Reference Range Interpretation Comments BNP (test code = 99579-7) 443 pg/mL 0-100 H DIANE (test code = DIANE) Sulky Driver ID - ADRY Lab Interpretation (test Abnormal code = 25129-5) [facility]-30 23:33:12 Test Item Value Reference Range Interpretation Comments BNP (test code = 09034-5) 443 pg/mL 0-100 H DIANE (test code = DIANE) Sulky Driver ID - ADRY Lab Interpretation (test Abnormal code = 81153-2) [facility]-30 23:33:12 Test Item Value Reference Range Interpretation Comments BNP (test code = 22771-5) 443 pg/mL 0-100 H DIANE (test code = DIANE) Sulky Driver ID - ADRY Lab Interpretation (test Abnormal code = 97895-0) [facility]-30 23:33:12 Test Item Value Reference Range Interpretation Comments BNP (test code = 77428-6) 443 pg/mL 0-100 H DIANE (test code = DIANE) Sulky Driver ID - ADRY Lab Interpretation (test Abnormal code = 77736-8) [facility]-30 23:33:12 Test Item Value Reference Range Interpretation Comments BNP (test code = 37567-2) 443 pg/mL 0-100 H DIANE (test code = DIANE) Sulky Driver ID - ADRY Lab Interpretation (test Abnormal code = 43188-0) [facility]-30 23:33:12 Test Item Value Reference Range Interpretation Comments BNP (test code = 12490-4) 443 pg/mL 0-100 H DIANE (test code = DIANE) Sulky Driver ID - ADRY Lab Interpretation (test Abnormal code = 16056-7) [facility]-30 23:33:12 Test Item Value Reference Range Interpretation Comments BNP (test code = 64671-9) 443 pg/mL 0-100 H DIANE (test code = DIANE) [employer] Driver ID - ADRY Lab Interpretation (test Abnormal code = 31792-0) [facility]-30 23:33:12 Test Item Value Reference Range Interpretation Comments BNP (test code = 14609-5) 443 pg/mL 0-100 H DIANE (test code = DIANE) [employer] Driver ID - ADRY Lab Interpretation (test Abnormal code = 10109-7) [facility]22-01-30 23:33:12 Test Item Value Reference Range Interpretation Comments BNP (test code = 36796-4) 443 pg/mL 0-100 H DIANE (test code = DIANE) [employer] Driver ID - ADRY Lab Interpretation (test Abnormal code = 45111-5) [facility]2022-01-30 23:33:12 Test Item Value Reference Range Interpretation Comments B-TYPE NATRIURETIC PEPTIDE (BEAKER) 443 pg/mL 0-100 H (test code = 700) [facility] ID - ADRYTROPONIN [id number] 20:57:59 Test Item Value Reference Interpretation Comments Range TROPONIN I (test 0.017 ng/mL See_Comment [Automated code = 2853060819) message] The system which generated this result [...] biotin. Lab Interpretation Normal (test code = 33893-6) [id number] 20:54:59 Test Item Value Reference Range Interpretation Comments NT-proBNP (test code 6490 pg/mL See_Comment H [Autom ated = 3558821457) message] The system which generated this result transmitted reference range : <=125. The reference range was not used to interpret this result as normal/abnormal . DIANE (test code = DIANE) Biotin has been reported to cause a negative bias, interpret results relative to patient's use of biotin. Lab Interpretation Abnormal (test code = 90384-6) [facility] 20:46:35 Test Item Value Reference Range Interpretation Comments MAGNESIUM (test code = 9168401077) 1.5 mg/dL 1.7-2.4 L Lab Interpretation (test code = Abnormal 61673-4) [facility]. METABOLIC PANEL (85436)2021-11-09 20:46:34 Test Item Value Reference Range Interpretation Comments NA (test code = 140 mmol/L 135-145 7217746206) K (test code = 3.9 mmol/L 3.5-5.0 7283300266) CL (test code = 111 mmol/L 98-108 H 3720935666) CO2 TOTAL (test code = 16 mmol/L 23-31 L 4186145430) AGAP (test code = 2-16 9184756722) BUN (test code = 14 mg/dL 7-23 5138096190) GLUCOSE (test code = 189 mg/dL 70-110 H 9772538681) CREATININE (test code = 0.66 mg/dL 0.60-1.25 4737050285) TOTAL BILI (test code = 0.8 mg/dL 0.1-1.8 6650370197) CALCIUM (test code = 8.3 mg/dL 8.6-10.6 L 9646263282) T PROTEIN (test code = 6.5 g/dL 6.3-8.2 5444498542) ALBUMIN (test code = 3.3 g/dL 3.5-5.0 L 3933943038) ALK PHOS (test code = 136 U/L 34-122 H 3502516956) ALTv (test code = 18 U/L 5-50 1742-6) AST(SGOT) (test code = 26 U/L 13-40 4913829523) eGFR (test code = mL/min/1.73m2 6833619908) DIANE (test code = DIANE) Association of [...] tests). Lab Interpretation Abnormal (test code = 41989-5) [facility] WITH [id number] 20:33:30 Test Item Value Reference Range Interpretation Comments WBC (test code = See_Comment [Automated 6755-2) message] The sy stem which generated this result transmitted reference range : 4.20 - 10.70 10*3/?L. The reference range was not used to interpret this result as normal/abnormal . RBC (test code = See_Comment [Automated 569-8) message] The sy stem which [...] RDW-SD (test code = 45.4 fL 38.5-51.6 19632-6) RDW-CV (test code = 14.2 % 12.1-15.4 788-0) PLT (test code = See_Comment [Automated 777-3) message] The sy stem which generated this result transmitted reference range : 150 - 328 10*3/ ?L. The reference r batsheva was not used to interpret this result as normal/abnormal . MPV (test code = 9.8 fL 9.8-13.0 28908-0) NRBC/100 WBC (test See_Comment [Automat ed code = 0525553172) message] The system which generated this result transmitted reference range : 0.0 - 10.0 /100 WBCs. The refer ence range was not u sed to interpret th is result as normal/abnormal . NRBC x10^3 (test code <0.01 See_Comment [Auto mated = 5837385783) message] The s ystem which generated this result transmitted reference range : 10*3/?L. The reference range was not used to interpret this result as normal/abnormal . GRAN MAT (NEUT) % 62.3 % (test code = 770-8) IMM GRAN % (test code 0.80 % = 4109938445) LYMPH % (test code = 25.1 % 736-9) MONO % (test code = 6.7 % 5905-5) EOS % (test code = 4.7 % 713-8) BASO % (test code = 0.4 % 706-2) GRAN MAT x10^3(ANC) 4.76 10*3/uL 1.99-6.95 (test code = 6693079095) IMM GRAN x10^3 (test 0.06 10*3/uL 0.00-0.06 code = 5562480710) LYMPH x10^3 (test code 1.92 10*3/uL 1.09-3.23 = 731-0) MONO x10^3 (test code 0.51 10*3/uL 0.36-1.02 = 742-7) EOS x10^3 (test code = 0.36 10*3/uL 0.06-0.53 711-2) BASO x10^3 (test code 0.03 10*3/uL 0.01-0.09 = 704-7) Lab Interpretation Abnormal (test code = 11362-4) [facility] GLUCOSE (AUTOMATED)2021-11-09 20:27:39 Test Item Value Reference Range Interpretation Comments POCT GLU (test code = 6608020627) 190 mg/dL 70-110 H Lab Interpretation (test code = Abnormal 15217-8) [facility] [id number] 11:52:00 Test Item Value Reference Range Interpretation Comments GLUCOSE BEDSIDE TESTING (test code = 92 mg/dL 70-110 N GLUBED) GLUCOSE BEDSIDE [id number] 08:05:00 Test Item Value Reference Range Interpretation Comments GLUCOSE BEDSIDE TESTING (test code = 62 mg/dL 70-110 L GLUBED) GLUCOSE BEDSIDE [id number] 20:40:00 Test Item Value Reference Range Interpretation Comments GLUCOSE BEDSIDE TESTING (test code 105 mg/dL 70-110 N = GLUBED) GLUCOSE BEDSIDE [id number] 17:02:00 Test Item Value Reference Range Interpretation Comments GLUCOSE BEDSIDE TESTING (test code 128 mg/dL 70-110 H = GLUBED) GLUCOSE BEDSIDE [id number] 16:37:00 Test Item Value Reference Range Interpretation Comments GLUCOSE BEDSIDE TESTING (test code 105 mg/dL 70-110 N = GLUBED) GLUCOSE BEDSIDE [id number] 08:17:00 Test Item Value Reference Range Interpretation Comments GLUCOSE BEDSIDE TESTING (test code = 88 mg/dL 70-110 N GLUBED) GLUCOSE BEDSIDE [id number] 19:45:00 Test Item Value Reference Range Interpretation Comments GLUCOSE BEDSIDE TESTING (test code 115 mg/dL 70-110 H = GLUBED) GLUCOSE BEDSIDE [id number] 18:13:00 Test Item Value Reference Range Interpretation Comments GLUCOSE BEDSIDE TESTING (test code = 74 mg/dL 70-110 N GLUBED) GLUCOSE BEDSIDE [id number] 17:29:00 Test Item Value Reference Range Interpretation Comments GLUCOSE BEDSIDE TESTING (test code = 44 mg/dL 70-110 LL GLUBED) GLUCOSE BEDSIDE [id number] 12:26:00 Test Item Value Reference Range Interpretation Comments GLUCOSE BEDSIDE TESTING (test code = 96 mg/dL 70-110 N GLUBED) GLUCOSE BEDSIDE [id number] 08:21:00 Test Item Value Reference Range Interpretation Comments GLUCOSE BEDSIDE TESTING (test code = 77 mg/dL 70-110 N GLUBED) GLUCOSE BEDSIDE [id number] 20:12:00 Test Item Value Reference Range Interpretation Comments GLUCOSE BEDSIDE TESTING (test code = 91 mg/dL 70-110 N GLUBED) GLUCOSE BEDSIDE [id number] 16:42:00 Test Item Value Reference Range Interpretation Comments GLUCOSE BEDSIDE TESTING (test code 106 mg/dL 70-110 N = GLUBED) GLUCOSE BEDSIDE [id number] 11:49:00 Test Item Value Reference Range Interpretation Comments GLUCOSE BEDSIDE TESTING (test code = 89 mg/dL 70-110 N GLUBED) GLUCOSE BEDSIDE [id number] 08:22:00 Test Item Value Reference Range Interpretation Comments GLUCOSE BEDSIDE TESTING (test code = 68 mg/dL 70-110 L GLUBED) GLUCOSE BEDSIDE [id number] 20:05:00 Test Item Value Reference Range Interpretation Comments GLUCOSE BEDSIDE TESTING (test code 137 mg/dL 70-110 H = GLUBED) GLUCOSE BEDSIDE [id number] 16:42:00 Test Item Value Reference Range Interpretation Comments GLUCOSE BEDSIDE TESTING (test code = 98 mg/dL 70-110 N GLUBED) GLUCOSE BEDSIDE [id number] 11:13:00 Test Item Value Reference Range Interpretation Comments GLUCOSE BEDSIDE TESTING (test code 118 mg/dL 70-110 H = GLUBED) GLUCOSE BEDSIDE [id number] 07:37:00 Test Item Value Reference Range Interpretation Comments GLUCOSE BEDSIDE TESTING (test code 140 mg/dL 70-110 H = GLUBED) COMPREHENSIVE METABOLIC [id number] 06:34:00 Test Item Value Reference Range Interpretation [...] TOTAL (test code = ALKP) CBC W/AUTO [id number] 06:25:00 Test Item Value Reference Range Interpretation [...] DIFF/SCN CRITERIA = MDIFF) - CT ABDOMEN W/[id number] 03:09:00 [facility] 1960 Sex: M Name: FAITH VANCE [facility] : 1960 Age/S: 60 / M [address] Unit #: [id number] Loc: [place] [address] Phys: Fede Carrera DO Acct: [id number] Dis Date: Status: ADM IN PHONE #: [phone] Exam Date: 10/31/20201919 FAX #: Reason: NAUSEA, VOMITING, DIARRHEA EXAMS: CPT: [id number] CT ABDOMEN W/CONTRAST 15124 EXAM: - CT ABDOMEN W/CONTRAST LOCATION: H61 [...] Report (CONTINUED) Name: FAITH VANCE [facility] : 1960 Age/S: 60 / M [address] Unit #: [id number] Loc: [place] [address] Phys: Fede Romero DO Acct: [id number] Dis Date: Status: ADM IN PHONE #: [phone] Exam Date: 10/31/20201919 FAX #: Reason: NAUSEA, VOMITING, DIARRHEA EXAMS: CPT: [id number] CT ABDOMEN W/CONTRAST 42432 <Continued> small bowel wall thickening. The appendix [...] 11/01/2020 (311) PAGE 2 Signed ReportGLUCOSE BEDSIDE [id number] 21:34:00 Test Item Value Reference Range Interpretation Comments GLUCOSE BEDSIDE TESTING (test code 161 mg/dL 70-110 H = GLUBED) GLUCOSE BEDSIDE [id number] 17:32:00 Test Item Value Reference Range Interpretation Comments GLUCOSE BEDSIDE TESTING (test code 136 mg/dL 70-110 H = GLUBED) - XR ABDOMEN 1 [id number] 12:44:00 [facility] 1960 Sex: M Name: FAITH VANCE [facility] : 1960 Age/S: 60 / M [address] Unit #: [id number] Loc: [place] [address] Phys: Fede Carrera DO Acct: [id number] Dis Date: Status: ADM IN PHONE #: [phone] Exam Date: 10/31/2020 1227 FAX #: Reason: Abdominal pain in the lower qudarants EXAMS: C PT: [id number] XR ABDOMEN 1 V 97991 Fluoro Time: DAP (Gy m2): Air Kerma [...] few small bowel loops. Overall nonspecific appearance. [id number] Reported and signed by: Ananth Schmidt M.D. CC: Nika Martin MD; Fede Carrera DO PAGE 1 Signed Report Name: FAITH VANCE : 1960 Age/S: 60 / M [address] Unit #: [id number] Loc: [place] [address] Phys: Fede Carrera DO Acct: [id number] Dis Date: Status: ADM IN PHONE #: [phone] Exam Date: 10/31/20207 FAX #: Reason: Abdominal pain in thelower qudarants EXAMS: CPT: [id number] XR ABDOMEN 1 V 28045 Fluoro Time: DAP (Gy m2): Air Kerma (mGy): <Continued> Technologist: RT Rohan(Tim) Trnchaseb Date/Time: 10/31/2020 (9485) Lorena Orig Print D/T: S: 10/31/2020 (1042) PAGE 2 Signed Report GLUCOSE BEDSIDE [id number] 11:58:00 Test Item Value Reference Range Interpretation Comments GLUCOSE BEDSIDE TESTING (test code 105 mg/dL 70-110 N = GLUBED) GLUCOSE BEDSIDE [id number] 08:01:00 Test Item Value Reference Range Interpretation Comments GLUCOSE BEDSIDE TESTING (test code 106 mg/dL 70-110 N = GLUBED) [id number] 22:46:00 Test Item Value Reference Range Interpretation [...] yby method. Completed by Nursing: NOGLUCOSE BEDSIDE [id number] 21:55:00 Test Item Value Reference Range Interpretation Comments GLUCOSE BEDSIDE TESTING (test code 119 mg/dL 70-110 H = GLUBED) [id number] 19:33:00 Test Item Value Reference Range Interpretation [...] method. Completed by Nursing: NOCoronavirus 2019 nCoV [id number] 18:46:00 Test Item Value Reference Range Interpretation Comments Coronavirus 2019 nCoV Negative Negative Per arnie west, Bedside (test code = negativ e results should [id number]) be treated aspresumptive a nd, if inconsistent [...] with COVID-19. Spec Comments: NNT PRO-BRAIN NATRIURETIC [id number] 15:51:00 Test Item Value Reference Range Interpretation Comments NT PRO-BRAIN NATRIURETIC PEPTI 6079 PG/ML 0-100 H (test code = PROBNP) Completed by Nursing: [id number] 15:51:00 Test Item Value Reference Range Interpretation [...] yby method. Completed by Nursing: NOBASIC METABOLIC [id number] 15:51:00 Test Item Value Reference Range Interpretation [...] Completed by Nursing: NO- XR CHEST 1 [id number] 15:42:00 [facility] 1960 Sex: M Name: FAITH VANCE [facility] : 1960 Age/S: 60 / M [address] Unit #: [id number] Loc: [place] [address] Phys: Todd Jacobo MD Acct: [id number] Dis Date: Status: PRE ER PHONE #:[phone] Exam Date: 10/30/2020 6129 FAX #: Reason: chest pain EXAMS: CPT: [id number] XR CHEST 1 B20810 Fluoro Time: DAP (Gy m2): Air Kerma [...] PAGE 1 Signed Report Name: FAITH VANCE [place] : 1960 Age/S: 60 / M [address] Unit #: [id number] Loc: [place] [address] Phys: Todd Jacobo MD Acct: [id number] DisDate: Status: PRE ER PHONE #: [phone] Exam Date: 10/30/2020 1524 FAX #: Reason: chest pain EXAMS: CPT: [id number] XR CHEST 1 V 86446 Fluoro Time: DAP (Gy m2): Air Kerma (mGy): <Continued> Technologist: Kim Andrews RT(R)(CT) Trnscb Date/Time: 10/30/2020 (8125) JhonRB24 Orig Print D/T: S: 10/30/2020 (5413) PAGE 2 Signed ReportCBC W/O [id number] 15:31:00 Test Item Value Reference Range Interpretation [...] 9.70 fL 7.0-9.6 H MPV) BASIC METABOLIC [id number] 21:42:00 Test Item Value Reference Range Interpretation [...] 9.6 mg/dL 8.0-10.5 N CA) HEPATIC FUNCTION [id number] 21:42:00 Test Item Value Reference Range Interpretation [...] 114 IUnit/L 20-125 N code = ALKP) [id number] 21:42:00 Test Item Value Reference Range Interpretation Comments LIPASE (test code = LIP) 70 U/L 13-57 H [id number] 21:42:00 Test Item Value Reference Range Interpretation [...] by method. UA RFLX MICR CULT IF [id number] 21:37:00 Test Item Value Reference Range Interpretation [...] INDWELLING CATH (CEDENO)Cath Status: Under 72 hoursPROTHROMBIN [id number] 21:35:00 Test Item Value Reference Range Interpretation [...] (to prevent recurrent infar ct). THROMBOPLASTIN TIME [id number] 21:35:00 Test Item Value Reference Range Interpretation Comments THROMBOPLASTIN TIME 41.7 Seconds 25.0-39.5 H Therape utic Range: PARTIAL (test code = 50.4 - 88.3 Seconds PTT) Effective 09/04/2018 CBC W/AUTO [id number] 21:29:00 Test Item Value Reference Range Interpretation [...] = MDIFF) - CT ABD PELVIS W/O [id number] 20:49:00 [facility] 1960 Sex: M Name: FAITH VANCE [facility] : 1960 Age/S: 60 / M [address] [place] [address] Unit #: [id number] Loc: [place] [address] Phys: Gisel Eugene Acct: [id number] Dis Date: Status: REG ER PHONE #: [phone] Exam Date: 08/23/20202024 FAX #: [phone] Reason: DIFFUSE ABDOMINAL PAIN EXAMS: CPT CODE: [id number] CT ABD PELVIS W/O CONT 95395 Clinical indication: Diffuse abdominal pain. Contrast - [...] nodes by CT size criteria. Bones/Soft Tissues: Posteriorinstrumented interbody fusion at L4-L5 levels with laminectomy defects. No obvious fracture or loosening. Small bilateral fat-containing hernias. No ventral hernias. PAGE 1 Signed Report (CONTINUED) Name: FAITH VNACE [facility] : 1960 Age/S: 60 / M [address] [place] [address] Unit #: [id number] Loc: [place] [address] Phys: Gisel Eugene SUPPORTABILITY ENGINEER Acct: [id number] Dis Date: Status: REG ER PHONE #: [phone] Exam Date: 08/23/20202024 FAX #: [phone] Reason: DIFFUSE ABDOMINAL PAIN EXAMS: CPT CODE: [id number] CT ABD PELVIS W/O CONT 10094 <Continued> Peritoneum/Other: No extraluminal air. No extraluminal [...] Katz M.D. 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 [facility] BASIC METABOLIC [id number] 08:00:00 Test Item Value Reference Range Interpretation [...] 9.9 mg/dL 8.0-10.5 N CA) CBC W/AUTO [id number] 07:08:00 Test Item Value Reference Range Interpretation [...] DIFF REQUIRED (test code NO = MDIFF) [id number] 05:21:00 Test Item Value Reference Range Interpretation Comments GLUBED (test code = 150 MG/DL 70-110 H Performe d by certified GLUBED) 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 [facility] [id number] 21:13:00 Test Item Value Reference Range Interpretation Comments GLUBED (test code = 129 MG/DL 70-110 H Performe d by certified GLUBED) 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 [facility] [id number] 16:48:00 Test Item Value Reference Range Interpretation Comments GLUBED (test code = 116 MG/DL 70-110 H Performe d by certified GLUBED) 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 [facility] [id number] 12:18:00 Test Item Value Reference Range Interpretation Comments GLUBED (test code = 136 MG/DL 70-110 H Performe d by certified GLUBED) 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 [facility] [id number] 12:18:00 Test Item Value Reference Range Interpretation Comments GLUBED (test code = 151 MG/DL 70-110 H Performe d by certified GLUBED) 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 [facility] CBC W/AUTO [id number] 07:32:00 Test Item Value Reference Range Interpretation [...] (test code NO = MDIFF) BASIC METABOLIC [id number] 07:29:00 Test Item Value Reference Range Interpretation [...] code = 9.0 mg/dL 8.0-10.5 N CA) [id number] 05:19:00 Test Item Value Reference Range Interpretation Comments GLUBED (test code = 135 MG/DL 70-110 H Performe d by certified GLUBED) 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 1960 Sex: M Name: FAITH VANCE [facility] : 1960 Age/S: 60 / M [address] [place] [address] Unit #: [id number] Loc: [place] [address] Phys: Gina Gonzalez YAYA Acct: [id number] Dis Date: Status: ADM IN PHONE #: [phone] Exam Date: 08/12/2020 0912 FAX #: [phone] Reason: CP, elevated D-dimer EXAMS: CPT CODE: [id number] [place] [address] PROCEDURE: CTA CHEST INDICATION: CP, elevated D-dimer; [...] right. Partial compressive atelectasis of the lower lobes.Mild interstitial septal thickening. Mild groundglass opacities in dependent portions of the lungs. There is no consolidation. UPPER ABDOMEN: Survey of viscera may be limited by early phase of PAGE 1 Signed Report (CONTINUED) Name: FAITH VANCE [facility] : 1960 Age/S: 60 / M [address] [place] [address] Unit #: [id number] Loc: [place] [address] Phys: Gina Gonzalez NP Acct: [id number] Dis Date: Status: ADM IN PHONE #: [phone] Exam Date: 08/12/2020911 FAX #: [phone] Reason: CP, elevated D-dimer EXAMS: CPT CODE: [id number] [place] [address] <Continued> contrast enhancement. No acute abnormality demonstrated. MUSCULOSKELETAL: Healed median sternotomy. No acuteskeletal abnormality. IMPRESSION: 1. Negative for pulmonary embolic disease within limitations noted. 2. Atherosclerosis. 3. Coronary arterial calcifications with prior coronary arterial stents and CABG. 4. Interstitial edema. No consolidation. 5. Small bilateral pleural effusions. SL: [id number] at 1348 Reported and signed by: Christiano Piña M.D. 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 [facility] CBC W/AUTO [id number] 09:17:00 Test Item Value Reference Range Interpretation [...] (test code NO = MDIFF) BASIC METABOLIC [id number] 08:28:00 Test Item Value Reference Range Interpretation [...] code = 8.3 mg/dL 8.0-10.5 N CA) [id number] 08:28:00 Test Item Value Reference Range Interpretation Comments PHOSPHOROUS (test code = PHOS) 3.6 MG/DL 2.5-4.9 N [id number] 08:28:00 Test Item Value Reference Range Interpretation Comments MAGNESIUM (test code = MAG) 1.94 mg/dL 1.80-2.40 N [id number] 07:16:00 Test Item Value Reference Range Interpretation Comments GLUBED (test code = 170 MG/DL 70-110 H Performe d by certified GLUBED) 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 [facility] [id number] 07:16:00 Test Item Value Reference Range Interpretation Comments GLUBED (test code = 137 MG/DL 70-110 H Performe d by certified GLUBED) 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 [facility] [id number] 17:01:00 Test Item Value Reference Range Interpretation Comments GLUBED (test code = 88 MG/DL 70-110 N Performe d by certified GLUBED) 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 [facility] HSW-DYBZH1694-01-23 16:56:00 Test Item Value Reference Range Interpretation Comments ACT-ISTAT (test code 186 SEC 74-137 H Perform ed by certified = ACTI) 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 [facility] PJA-[id number] 15:03:00 Test Item Value Reference Range Interpretation Comments ACT-ISTAT (test code 235 SEC 74-137 H Perform ed by certified = ACTI) 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 [facility] [id number] 11:33:00 Test Item Value Reference Range Interpretation Comments GLUBED (test code = 97 MG/DL 70-110 N Performe d by certified GLUBED) 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 [facility] [id number] 06:54:00 Test Item Value Reference Range Interpretation Comments GLUBED (test code = 136 MG/DL 70-110 H Performe d by certified GLUBED) 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 [facility] BASIC METABOLIC [id number] 06:00:00 Test Item Value Reference Range Interpretation [...] COMMENTS: To be done morning of Heart BlktIPVXMHYUQFP3744-31-43 06:00:00 Test Item Value Reference Range Interpretation Comments PHOSPHOROUS (test code = PHOS) 4.1 MG/DL 2.5-4.9 N COMMENTS: To be done morning of Heart LcohDYCQRDXZG7550-43-87 06:00:00 Test Item Value Reference Range Interpretation Comments MAGNESIUM (test code = MAG) 1.74 mg/dL 1.80-2.40 L COMMENTS: To be done morning of Heart CathTHROMBOPLASTIN TIME [id number] 05:55:00 Test Item Value Reference Range Interpretation Comments THROMBOPLASTIN TIME 37.9 Seconds 25.0-39.5 N Therape utic Range: PARTIAL (test code = 50.4 - 88.3 Seconds PTT) Effective 09/04/2018 CBC W/AUTO [id number] 05:44:00 Test Item Value Reference Range Interpretation [...] COMMENTS: To be done morning of Heart YhkrJNWYIG6290-77-83 05:44:00 Test Item Value Reference Range Interpretation Comments GLUBED (test code = 92 MG/DL 70-110 N Performe d by certified GLUBED) 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 [facility] HGBA1C%2020-08-10 17:22:00 Test Item Value Reference Range Interpretation Comments HGBA1C% (test code = HGBA1C%) 6.6 %A1C 4.8-6.0 H [id number] 17:17:00 Test Item Value Reference Range Interpretation Comments GLUBED (test code = 118 MG/DL 70-110 H Performe d by certified GLUBED) 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 COVID 19 Asymptomatic IH [id number] 11:35:00 Test Item Value Reference Range Interpretation [...] y tests. COMMENTS: If not done this vuznogohkKWREXOUJ-[id number] 11:31:00 Test Item Value Reference Range Interpretation [...] titative results may babak y by method. [id number] 11:28:00 Test Item Value Reference Range Interpretation Comments D-DIMER (test 1089 ng/mlFEU See_Comment HH Critical resu lt called to code = ALYX WELLS, SHEBAby DDIMER) G.LAB.JJ1 at 04 1808/10/20Nurse r [...] to interpret this result as normal/abnormal . 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 [facility] B-TYPE NATRIURETIC [id number] 08:19:00 Test Item Value Reference Range Interpretation Comments B-TYPE NATRIURETIC PEPTIDE (test 508.0 PG/ML 0-100 H code = BNP) BASIC METABOLIC [id number] 08:11:00 Test Item Value Reference Range Interpretation [...] 9.1 mg/dL 8.0-10.5 N CA) HEPATIC FUNCTION [id number] 08:11:00 Test Item Value Reference Range Interpretation [...] 174 IUnit/L 20-125 H code = ALKP) [id number] 08:11:00 Test Item Value Reference Range Interpretation Comments MAGNESIUM (test code = MAG) 1.80 mg/dL 1.80-2.40 N [id number]-[id number] 08:11:00 Test Item Value Reference Range Interpretation [...] may babak y by method. BASIC METABOLIC [id number] 08:09:00 Test Item Value Reference Range Interpretation [...] code = CA) mg/dL 8.0-10.5 HEPATIC FUNCTION [id number] 08:09:00 Test Item Value Reference Range Interpretation Comments TOTAL PROTEIN (test code = PROT) g/dL 6.4-8.2 ALBUMIN (test code = ALB) g/dL 3.4-5.0 BILIRUBIN TOTAL (test code = BILT) mg/dL 0.0-1.0 BILIRUBIN DIRECT (test code = BILD) MG/DL 0.0-0.30 SGOT/AST (test code = AST) IUnit/L 15-37 SGPT/ALT (test code = ALT) IUnit/L 30-65 ALKALINE PHOSPHATASE TOTAL (test IUnit/L 20-125 code = ALKP) [id number] 08:09:00 Test Item Value Reference Range Interpretation Comments MAGNESIUM (test code = MAG) mg/dL 1.80-2.40 [id number]-[id number] 08:09:00 Test Item Value Reference Range Interpretation [...] results may babak y by method. PROTHROMBIN [id number] 08:06:00 Test Item Value Reference Range Interpretation [...] (to prevent recurrent infar ct). THROMBOPLASTIN TIME [id number] 08:06:00 Test Item Value Reference Range Interpretation Comments THROMBOPLASTIN TIME 44.5 Seconds 25.0-39.5 H Therape utic Range: PARTIAL (test code = 50.4 - 88.3 Seconds PTT) Effective 09/04/2018 CBC W/AUTO [id number] 07:58:00 Test Item Value Reference Range Interpretation [...] NO = TANYA) - XR CHEST 1 [id number] 07:57:00 [facility] 1960 Sex: M FAX: Todd Jacobo MD [phone] Coleman: St: REG FAX: Martínez Dash NP [phone] Name: RAJIVFAITH [facility] : 1960 Age/S: 60/M [address] [place] [address] Unit #: [id number] Loc: [place] [address] Phys: Martínez Dash NP Acct: [id number] Dis Date: Status: REG ER PHONE #: [phone] Exam Date: 08/10/2020 [facility] FAX #: [phone] Reason: Chest Pain EXAMS: CPT CODE: [id number] XR CHEST 1 V 30662 Chest single view 08/10/2020 HISTORY: Chest pain. Comparison is made to 05/21/2018 FINDINGS: Pacemaker and midline sternotomy wires are stable. The lungs are hypoinflated. No consolidation or pleural effusion is present. No vascular congestion or interstitial edema is present. Heart size is mildlyenlarged. Aorta is unchanged. IMPRESSION: Hypoinflated lungs. No acute cardiopulmonary process. SL:JNBUJ6YYMH62 at 0757 Reported and signed by: Khai Kruse M.D. CC: Todd Jacobo MD; Martínez Dash NP Technologist: RT Ann(R) Trnscrd Date/Time/By: 08/10/2020 (0757) : By: [email or web address] Orig Print D/T: S: 08/10/2020 (08) PAGE 1 Signed Report COMPREHENSIVE METABOLIC [id number] 18:02:00 Test Item Value Reference Range Interpretation [...] 50-136 H TOTAL (test code = ALKP) [id number] 18:02:00 Test Item Value Reference Range Interpretation Comments AMYLASE (test code = SERGIO) 82 Unit/L 25-115 N [id number] 18:02:00 Test Item Value Reference Range Interpretation Comments LIPASE (test code = LIP) 185 Unit/L 114-286 N COMPREHENSIVE METABOLIC [id number] 17:56:00 Test Item Value Reference Range Interpretation [...] TOTAL Unit/L 50-136 (test code = ALKP) [id number] 17:56:00 Test Item Value Reference Range Interpretation Comments AMYLASE (test code = SERGIO) Unit/L 25-115 [id number] 17:56:00 Test Item Value Reference Range Interpretation Comments LIPASE (test code = LIP) 185 Unit/L 114-286 N CBC W/AUTO [id number] 17:46:00 Test Item Value Reference Range Interpretation [...] CRITERIA MDIFF) - CT ABD PELVIS W/O [id number] 17:46:00 Name: FAITH VANCE [facility] : 1960 Age/S: 58 / M [address] Unit #: [id number] Loc: [place] [address] Phys: Nila Chester MD Acct: [id number] Dis Date: Status: REG ER PHONE #: [phone] Exam Date: 01/03/2019 1735 FAX #: Reason: llq EXAMS: CPT: [id number] CT ABDPELVIS W/O CONT 42157 Location of dictation: B2 CT abdomen and [...] 1 Signed Report (CONTINUED) Name: [facility] [place] : 1960 Age/S:58 / M [address] Unit #: [id number] Loc: [place] [address] Phys: Nila Chester MD Acct: [id number] Dis Date: Status: REG ER PHONE #: [phone] Exam Date: 01/03/2019 1731 FAX #: Reason: llq EXAMS: CPT: [id number] CT ABD PELVIS W/O CONT 62526 <Continued> at 1746 Reported and signed by: Renuka Willett M.D. CC: Nila Chester MD Technologist:Tavon Jurado, RT(R)(CT)(MRI) CTDI: DLP: Trnscb Date/Time: 01/03/2019 (1186) [email or web address] Orig Print D/T: S: 01/03/2019 (2010) PAGE 2 Signed ReportBedside Rlqlqws2302-24-50 11:47:00 Test Item Value Reference Range Interpretation Comments Bedside Glucose (test code = 06621-9) 155 70-120 H Meter ID: [id number]. [facility]'s [facility] Centerodium Hjmlu5943-66-31 08:31:00 Test Item Value Reference Range Interpretation Comments Sodium Level (test code = 2951-2) 139 136-145 [facility] CenterPotassium Vbnlh8688-69-59 08:31:00 Test Item Value Reference Range Interpretation Comments Potassium Level (test code = 2823-3) 4.0 3.5-5.1 [facility] CenterChloride Snvmq0950-09-67 08:31:00 Test Item Value Reference Range Interpretation Comments Chloride Level (test code = 2075-0) 106 98-107 [facility] CenterCarbon Dioxide [id number] 08:31:00 Test Item Value Reference Range Interpretation Comments Carbon Dioxide Level (test code = 25 -29 8-9) [facility] CenterAnion Ajt0752-47-00 08:31:00 Test Item Value Reference Range Interpretation Comments Anion Gap (test code = 58691-6) 12.0 8-16 [facility] CenterBlood Urea Mckkugra2282-33-92 08:31:00 Test Item Value Reference Range Interpretation Comments Blood Urea Nitrogen (test code = 12-14 3094-0) [facility] CenterCreatinine2018-06-08 08:31:00 Test Item Value Reference Range Interpretation Comments Creatinine (test code = 2160-0) 0.72 0.72-1.25 [facility] CenterBUN/Creatinine Tfwtk2884-42-04 08:31:00 Test Item Value Reference Range Interpretation Comments BUN/Creatinine Ratio (test code = 10 625 3097-3) [facility] CenterEstimat Glomerular Filtration Ahwf3359-80-77 08:31:00 Test Item Value Reference Range Interpretation Comments Estimat Glomerular Filtration Rate 60- >60 (test code = 44532-3) Ranges were taken from the National Kidney Disease Education Program and the National Kidney Foundation literature.Reference ranges:60 or greater: Vmfjkj29- 59 (for 3 consecutive months): Chronic kidneydisease 15 or less: Kidney failure [facility] CenterGlucose Ahnzh4872-76-85 08:31:00 Test Item Value Reference Range Interpretation Comments Glucose Level (test code = DFM7588) 195 74-118 H [facility] CenterCalcium Fbotu2005-26-68 08:31:00 Test Item Value Reference Range Interpretation Comments Calcium Level (test code = 18569-8) 9.0 8.4-10.2 [facility] CenterWhite Blood Dyhny8618-94-58 08:12:00 Test Item Value Reference Range Interpretation Comments White Blood Count (test code = 6690-2) 6.06 4.8-10.8 [facility] CenterRed Blood Midpp5322-63-40 08:12:00 Test Item Value Reference Range Interpretation Comments Red Blood Count (test code = 789-8) 4.22 4.3-5.7 L [facility] CenterHemoglobin2018-06-08 08:12:00 Test Item Value Reference Range Interpretation Comments Hemoglobin (test code = 29731-5) 12.5 14.0-18.0 L [facility] CenterHematocrit2018-06-08 08:12:00 Test Item Value Reference Range Interpretation Comments Hematocrit (test code = 4544-3) 36.2 38.2-49.6 L [facility] CenterMean Corpuscular Hcpftu1221-81-91 08:12:00 Test Item Value Reference Range Interpretation Comments Mean Corpuscular Volume (test code = 85.8 81-99 787-2) [facility] CenterMean Corpuscular Kfwsenbhkl8548-94-57 08:12:00 Test Item Value Reference Range Interpretation Comments Mean Corpuscular Hemoglobin (test code 29.6 28-32 = 785-6) [facility] CenterMean Corpuscular Hemoglobin Cbdavwy3702-71-47 08:12:00 Test Item Value Reference Range Interpretation Comments Mean Corpuscular Hemoglobin Concent 34.5 31-35 (test code = 786-4) [facility] CenterRed Cell Distribution Yzpxm0846-27-58 08:12:00 Test Item Value Reference Range Interpretation Comments Red Cell Distribution Width (test code 14.2 11.7-14.4 = 84131-6) [facility] CenterPlatelet Jzecz5165-90-05 08:12:00 Test Item Value Reference Range Interpretation Comments Platelet Count (test code = 777-3) 263 140-360 [facility] CenterNeutrophils (%) (Auto)2017-10-27 08:12:00 Test Item Value Reference Range Interpretation Comments Neutrophils (%) (Auto) (test code = 51.2 38.7-80.0 55188-1) [facility] CenterLymphocytes (%) (Auto)2017-10-27 08:12:00 [...] # (Auto) (test code = 2.0 1.0-3.2 16221-7) [facility] CenterMonocytes # (Auto)2017-10-27 08:12:00 [...] 0.0-0.1 [facility] CenterAbsolute Immature Granulocyte (ncec3149-23-01 08:12:00 Test Item Value Reference Range Interpretation Comments Absolute Immature Granulocyte (auto 0.03 0-0.1 (test code = Absolute Immature Granulocyte (auto) [facility] CenterCreatine Kinase [id number] 15:14:00 Test Item Value Reference Range Interpretation Comments Creatine Kinase MB (test code = 3.90 0-5.0 47304-3) [facility] CenterTroponin [id number] 15:14:00 Test Item Value Reference Range Interpretation Comments Troponin I (test code = QJZ8931) 0.054 0-0.300 [facility] CenterCreatine Ysosdx5376-93-28 15:07:00 Test Item Value Reference Range Interpretation Comments Creatine Kinase (test code = 2157-6) 297 30-200 H [facility] CenterHemoglobin A1c Krbkgfp6558-95-36 08:04:00 Test Item Value Reference Range Interpretation Comments Hemoglobin A1c Percent (test code = 12.6 4.0-7.0 H Hemoglobin A1c Percent) [facility] CenterTriglycerides Kwhjr2595-08-80 06:57:00 Test Item Value Reference Range Interpretation Comments Triglycerides Level (test code = 200 0-149 H 2571-8) [facility] CenterCholesterol Wowuv5077-52-17 06:57:00 Test Item Value Reference Range Interpretation Comments Cholesterol Level (test code = 2093-3) 239 0-199 H Less than 200 mg/dL Low Ihpo088 - 239 mg/dL Borderline Femn952 mg/dl and greater High RiskMatagorda Regional Medical CenterLDL Xsmqtbmbwzs1814-37-27 06:57:00 Test Item Value Reference Range Interpretation Comments LDL Cholesterol (test code = 2089-1) 164 60-130 H [facility] CenterHDL Sxdhjsunkum2880-78-50 06:57:00 Test Item Value Reference Range Interpretation Comments HDL Cholesterol (test code = 2085-9) 35 40-60 L [facility] CenterCholesterol/HDL Dzgml6172-95-87 06:57:00 Test Item Value Reference Range Interpretation Comments Cholesterol/HDL Ratio (test code = 6.8 3.9-4.7 H 9830-1) [facility] CenterUrine Opiates Tcmlst0782-78-57 16:18:00 Test Item Value Reference Range Interpretation Comments Urine Opiates Screen (test code = NEGATIVE NEGATIVE 23833-5) [facility] CenterUrine Barbiturates Nhpmki6987-94-84 16:18:00 Test Item Value Reference Range Interpretation Comments Urine Barbiturates Screen (test code NEGATIVE NEGATIVE = 301012983) [facility] CenterUrine Phencyclidine Ptvmhk4462-83-21 16:18:00 Test Item Value Reference Range Interpretation Comments Urine Phencyclidine Screen (test NEGATIVE NEGATIVE code = 74703-2) [facility] CenterUrine Amphetamines Mjblmu2443-58-02 16:18:00 Test Item Value Reference Range Interpretation Comments Urine Amphetamines Screen (test code NEGATIVE NEGATIVE = 14620-0) [facility] CenterUrine Methamphetamines Bpmpzi2459-57-03 16:18:00 Test Item Value Reference Range Interpretation Comments Urine Methamphetamines Screen (test NEGATIVE NEGATIVE code = Urine Methamphetamines Screen) [facility] CenterUrine Benzodiazepines Uuhiqe8839-73-29 16:18:00 Test Item Value Reference Range Interpretation Comments Urine Benzodiazepines Screen (test NEGATIVE NEGATIVE code = 11567-9) [facility] CenterUrine Cocaine Rdmlic8409-99-06 16:18:00 Test Item Value Reference Range Interpretation Comments Urine Cocaine Screen (test code = NEGATIVE NEGATIVE 3398-5) [facility] CenterUrine Cannabinoids Zawtyn4758-57-26 16:18:00 Test Item Value Reference Range Interpretation Comments Urine Cannabinoids Screen (test code NEGATIVE NEGATIVE = 39401-1) THESE RESULTS ARE FOR MEDICAL TREATMENT ONLYTHIS REPORT CONTAINS UNCONFIRMED SCREENING RESULTS*POSITIVE RESULTS WILL BE CONFIRMED BY REFERENCE LAB UPON REQUEST CUT-OFFDRUG CLASS CONCENTRATION ng/mLAmphetamines 1000Methamphetamines 1000Cocaine 300Opiate 300Phencyclidine 25Cannabinoid 50Barbiturates 300Benzodiazepine 300Methadone 300[facility] CenterUrine Methadone Ilvrgm7533-19-57 16:18:00 Test Item Value Reference Range Interpretation Comments Urine Methadone Screen (test code = NEGATIVE NEGATIVE 61744-6) THESE RESULTS ARE FOR MEDICAL TREATMENT ONLYTHIS REPORT CONTAINS UNCONFIRMED SCREENING RESULTS*POSITIVE RESULTS WILL BE CONFIRMED BY REFERENCE LAB UPON REQUEST CUT-OFFDRUG CLASS CONCENTRATION ng/mLAmphetamines 1000Methamphetamines 1000Cocaine Metabolite 300Opiate 300Phencyclidine 25Cannabinoid 50Barbiturates 300Benzodiazepine 300Methadone 300[facility] CenterProthrombin Zlgu7561-53-65 14:13:00 Test Item Value Reference Range Interpretation Comments Prothrombin Time (test code = 5902-2) 13.6 11.9-14.5 [facility] CenterProthromb Time International Kkdrp0255-85-83 14:13:00 Test Item Value Reference Range Interpretation Comments Prothromb Time International Ratio 1.13 (test code = 6301-6) Oral Anticoagulant Therapy INR Values:1. Low Intensity Therapy 1.5 - 2.02. Moderate Intensity Therapy 2.0 - 3.03. High Intensity Therapy(1) 2.5 - 3.54. High Intensity Therapy(2) 3.0 - 4.05. Panic ValueINR > 5.0[facility] CenterActivated Partial Thromboplast Uwtp3245-70-72 14:13:00 Test Item Value Reference Range Interpretation Comments Activated Partial Thromboplast Time 27.6 23.8-35.5 (test code = 61765-9) [facility] CenterAlbumin2018-06-04 14:10:00 Test Item Value Reference Range Interpretation Comments Albumin (test code = 1751-7) 4.0 3.5-5.0 [facility] CenterGlobulin2018-06-04 14:10:00 Test Item Value Reference Range Interpretation Comments Globulin (test code = 27891-2) 3.3 2.3-3.5 [facility] CenterAlbumin/Globulin Tuuws4878-32-76 14:10:00 Test Item Value Reference Range Interpretation Comments Albumin/Globulin Ratio (test code = 1.2 0.8-2.0 1759-0) [facility] CenterAlkaline Uatijalhqml5743-40-90 14:10:00 Test Item Value Reference Range Interpretation Comments Alkaline Phosphatase (test code = 109 40-150 6768-6) [facility] CenterB-Type Natriuretic Pmjqjdf9323-47-76 14:10:00 Test Item Value Reference Range Interpretation Comments B-Type Natriuretic Peptide (test code = 92.8 0-100 46282-8) [facility] CenterAmylase Gmanu1215-48-27 14:10:00 Test Item Value Reference Range Interpretation Comments Amylase Level (test code = 1798-8) 126 25-125 H [facility] CenterLipase2018-06-04 14:10:00 Test Item Value Reference Range Interpretation Comments Lipase (test code = 3040-3) 98 8-78 H [facility] CenterTotal Eimyeyegl3785-93-67 14:10:00 Test Item Value Reference Range Interpretation [...] code = 1742-6) [facility] CenterTotal Sxaqshm2425-04-05 14:10:00 Test Item Value Reference Range Interpretation Comments Total Protein (test code = 2885-2) 7.3 6.5-8.1 [facility] CenterD-Dimer Quantitative (PE/DVT)2017-10-23 14:02:00 Test Item Value Reference Range Interpretation Comments D-Dimer Quantitative (PE/DVT) (test 0.49 0.00-0.45 H code = 50571-1) [facility] CenterDirect Qgetnqcis6408-02-19 13:47:00 Test Item Value Reference Range Interpretation Comments Direct Bilirubin (test code = 59775-5) 0.2 0.0-5.0 [facility] CenterMagnesium Updxy8356-90-13 06:52:00 Test Item Value Reference Range Interpretation Comments Magnesium Level (test code = 17906-5) 1.5 1.3-2.1 [facility] CenterUrine IRT9248-20-90 05:09:00 Test Item Value Reference Range Interpretation Comments Urine WBC (test code = 5821-4) NONE 0-5 [facility] CenterUrine QHC7359-94-25 05:09:00 Test Item Value Reference Range Interpretation Comments Urine RBC (test code = 19183-6) NONE 0-5 [facility] CenterUrine Zkfuosbe0949-74-99 05:09:00 Test Item Value Reference Range Interpretation Comments Urine Bacteria (test code = 00560-9) NONE NONE [facility] CenterUrine Epithelial Eugaf0842-59-83 05:09:00 Test Item Value Reference Range Interpretation Comments Urine Epithelial Cells (test code = NONE NONE 80937-0) [facility] CenterUrine Gmdok7580-53-59 04:46:00 Test Item Value Reference Range Interpretation Comments Urine Color (test code = 5778-6) YELLOW YELLOW [facility] CenterUrine Jztnsov3568-70-93 04:46:00 Test Item Value Reference Range Interpretation Comments Urine Clarity (test code = 42535-2) CLEAR CLEAR [facility] CenterUrine Specific Xhbynai7184-24-66 04:46:00 Test Item Value Reference Range Interpretation Comments Urine Specific [place] (test code = 1.010 1.010-1.025 5811-5) [facility] CenterUrine yF4422-78-03 04:46:00 Test Item Value Reference Range Interpretation Comments Urine pH (test code = 93360-1) 8 5-7 H [facility] CenterUrine Leukocyte Nucztshk0643-43-29 04:46:00 Test Item Value Reference Range Interpretation Comments Urine Leukocyte Esterase (test code NEGATIVE NEGATIVE = 5799-2) [facility] CenterUrine Leglzat0881-40-52 04:46:00 Test Item Value Reference Range Interpretation Comments Urine Nitrite (test code = 43473-4) NEGATIVE NEGATIVE [facility] CenterUrine Nxaevcz1174-82-91 04:46:00 Test Item Value Reference Range Interpretation Comments Urine Protein (test code = 5804-0) NEGATIVE NEGATIVE [facility] CenterUrine Glucose (UA)2017-03-05 04:46:00 Test Item Value Reference Range Interpretation Comments Urine Glucose (UA) (test code = NEGATIVE NEGATIVE 2349-9) [facility] CenterUrine Sgvicss9324-80-49 04:46:00 Test Item Value Reference Range Interpretation Comments Urine Ketones (test code = 79041-8) NEGATIVE NEGATIVE [facility] CenterUrine Zdjburduhlby7304-12-08 04:46:00 Test Item Value Reference Range Interpretation Comments Urine Urobilinogen (test code = 0.2 0.2-1 05907-9) [facility] CenterUrine Ocpiiwkhz9412-82-47 04:46:00 Test Item Value Reference Range Interpretation Comments Urine Bilirubin (test code = 1978-6) NEGATIVE NEGATIVE [facility] CenterUrine Qjkrd9897-83-82 04:46:00 Test Item Value Reference Range Interpretation Comments Urine Blood (test code = 66336-8) 2+ [facility]IVE [facility] [place] [address] PatientName: FAITH VANCE MR #: [id number] : 1960 Age/Sex: 57/M Req #: [id number] [facility] Physician: ALEXIS COX MD Ordered by: ALEXIS COX MD Report #: [id number] Location: [facility] Room/Bed: [place] [address] Procedure: [id number] CT/CTA BRAIN Exam Date: 10/24/17 Exam Time: [...] COPY TO: ALEXIS COX MDCT BRAIN WO [place] [address] PatientName: FAITH VANCE MR #: [id number] : 1960 Age/Sex: 57/M Req #: [id number] Adm Physician: Ordered by: KHAI WAHL MD Report #: [id number] Location: ER Room/Bed: __ Procedure: [id number] CT/CT BRAIN WO Exam Date: 10/23/17 Exam [...] COPY TO: KHAI WAHL V MDCTA CHEST [place] [address] PatientName: FAITH VANCE MR #: [id number] : 1960 Age/Sex: 57/M Req #: [id number] Adm Physician: Ordered by: KHAI WAHL MD Report #: [id number] Location: ER Room/Bed: __ Procedure: [id number] CT/CTA CHEST Exam Date: 10/23/17 Exam Time: [...] and is below limits set by [facility]). FINDINGS: Lines and Tubes: Pacemaker [...] 10/23/17 1621 COPY TO: KHAI WAHL V [facility] SINGLE (PORTABLE) [place] [address] PatientName: FAITH VANCE MR #: [id number] : 1960 Age/Sex: 57/M Req #: [id number] Adm Physician: Ordered by: KHAI WAHL MD Report #: [id number] Location: ER Room/Bed: __ Procedure: [id number] DX/CHEST SINGLE (PORTABLE) Exam Date: 10/23/17 Exam [...] TO: KHAI WAHL V MDCT BRAIN WO [place] [address] PatientName: FAITH VANCE MR #: [id number] : 1960 Age/Sex: 56/M Req #: [id number] Adm Physician: Ordered by: JACQUELYN MONTES DE OCA MD Report #: [id number] Location: ER Room/Bed: Procedure: [id number] CT/CT BRAIN WO Exam Date: Exam Time: [...] MONTES DE OCA MDCT CERVICAL SPINE WO [place] [address] PatientName: FAITH VANCE MR #: [id number] : 1960 Age/Sex: 56/M Req #: [id number] Adm Physician: Ordered by: JACQUELYN MONTES DE OCA MD Report #: [id number] Location: ER Room/Bed: Procedure: [id number] CT/CT CERVICAL SPINE WO Exam Date: Exam [...] 04/04/17206 COPY TO: JACQUELYN MONTES DE OCA [facility] [place] [address] PatientName: FAITH VANCE MR #: [id number] : 1960 Age/Sex: 56/M Req #: [id number] Adm Physician: Ordered by: JACQUELYN MONTES DE OCA MD Report #: [id number] Location: ER Room/Bed: Procedure: [id number] DX/CHEST SINGLE (PORTABLE) Exam Date: 04/04/17 Exam [...] OCA MDHIP RIGHT 2-3 VW (+/- PELVIS) [place] [address] PatientName: FAITH VANCE MR #: [id number] : 1960 Age/Sex: 56/M Req #: [id number] Adm Physician: Ordered by: JACQUELYN MONTES DE OCA MD Report #: [id number] Location: ER Room/Bed: Procedure: [id number] DX/HIP RIGHT 2-3 VW (+/- PELVIS) Exam [...] DE OCA MDSP LUMBAR, COMPLETE MIN 4VW [place] [address] PatientName: FAITH VANCE MR #: [id number] : 1960 Age/Sex: 56/M Req #: [id number] Adm Physician: Ordered by: JACQUELYN MONTES DE OCA MD Report #: [id number] Location: ER Room/Bed: Procedure: [id number] DX/SP LUMBAR, COMPLETE MIN 4VW Exam Date: [...] JACQUELYN MONTES DE OCA MDUS ABDOMEN COMPLETE [place] [address] PatientName: FAITH VANCE MR #: [id number] : 1960 Age/Sex: 56/M Req #: [id number] Adm Physician: NICHELLE PALACIOS MD Ordered by: SCOTT AMIN MD Report #: [id number] Location: [facility] Room/Bed: [place] [address] Procedure: [id number] US/US ABDOMEN COMPLETE Exam Date: 03/08/17 Exam [...] on 03/08/17 1040 COPY TO: SCOTT AMIN [facility] [place] [address] PatientName: FAITH VANCE MR #: [id number] : 1960 Age/Sex: 56/M Req #: [id number] Adm Physician: Ordered by: JACQUELYN MONTES DE OCA MD Report #: [id number] Location: ER Room/Bed: Procedure: [id number] DX/CHEST SINGLE (PORTABLE) Exam Date: 03/05/17 Exam [...] A TALBOT MD Transcribed By: ANDREE on 03/05/1744 COPY TO: JACQUELYN MONTES DE OCA MD
[2022-07-08] MEDS ORDERED: ONDANSETRON 4 MG/2 ML VIAL ONE (06:53)
[2022-07-08] MEDS ORDERED: MORPHINE 4 MG/ML SYR ONE (06:53)
[2022-07-08] MEDS ORDERED: FAMOTIDINE 20 MG/2 ML VIAL IV ONE (06:53)
[2022-07-08 06:59] LABS: Absolute Lymphocytes (CBC) 1.1 K/uL (0.7-4.9); Hematocrit 37.4 % (39.6-49.0); MCV 83.3 fL (80-100); MPV 7.2 fL (7.6-11.3); RBC Red Blood Cell Count 4.49 M/uL (4.33-5.43)
[2022-07-08 07:24] LABS: Albumin 2.6 g/dL (3.4-5.0); Bilirubin Direct 0.3 mg/dL (0-0.2); Bilirubin Total 0.6 mg/dL (0.2-1.0); Magnesium 2.1 mg/dL (1.6-2.4); Potassium 4.4 mmol/L (3.5-5.1); Protein, Total 6.9 g/dL (6.4-8.2); Troponin High Sensitivity 32.7 pg/mL (<58.9)
--- NOTE | 2022-07-08 08:06 | RAD REPORT ---
EXAM DESCRIPTION: RAD - Chest Single View - 07/08/2022 6:49 am CLINICAL HISTORY: Chest pain COMPARISON: 07/05/2022 FINDINGS: Mild improved lung volumes with decreasing prominence of some of the pulmonary interstitia l markings. Small effusions are likely still present. Cardiomegaly. Sternotomy. Pacemaker. No acute f indings seen in the upper abdomen. IMPRESSION: Mild improved but not resolved interstitial edema.
[2022-07-08] MEDS ORDERED: MORPHINE 2 MG/ML SYR ONE (08:59)
--- NOTE | 2022-07-08 10:14 | EDPHYS ---
Physician Documentation [facility] Name: Ernie Rooney Age: 62 yrs Sex: Male : 1960 Arrival Date: 07/08/2022 Time: 06:34 Bed 16 Private MD: ED Physician Cade Dye HPI: 07/08 06:41 This 62 yrs old Male presents to ER via Unassigned with complaints of Chest kdr pain. 06:41 The patient or guardian reports chest pain that is located primarily in the substernal kdr area, anterior chest wall. Onset: suddenly, 1 hour(s) ago. The pain does not radiate. Associated signs and symptoms: Pertinent positives: nausea, shortness of breath, Pertinent negatives: diaphoresis. The chest pain is described as aching, Feels like his first heart attack. Duration: The patient or guardian reports a single episode, that is still ongoing. Modifying factors: The symptoms are alleviated by nothing. the symptoms are aggravated by nothing. Severity of pain: At its worst the pain was moderate severe incapacitating just prior to arrival, in the emergency department the pain is unchanged. The patient has experienced similar episodes in the past, multiple times, This is the patient's third visit this month. Patient has 52 visits overall the preponderance for chest pain. The patient has been recently seen by a physician: The patient has been recently seen at the [facility] Emergency Department, this week. Historical: - Allergies: 06:48 Nitroglycerin; pf1 - PMHx: 06:48 Arthritis; Back pain; CAD; CHF; CVA; Depression; Fibromyalgia; GERD; Hyperlipidemia; pf1 Hypertensive disorder; Hypothyroidism; Left sided weakness from previous CVA; Myocardial infarction; Pacemaker; IDDM; - PSHx: 06:48 bilat BKA's; bypass; CABG; pf1 - Immunization history:: Adult Immunizations up to date, Client reports receiving the 2nd dose of the Covid vaccine, Flu vaccine is up to date. - Social history:: Smoking status: Patient/guardian denies using tobacco, the patient reports quitting approximately 20 years ago, Patient/guardian denies using alcohol, the patient reports quitting approximately 15 years ago, Patient/guardian denies using street drugs. ROS: 06:41 Constitutional: Negative for fever, chills, and weight loss, Eyes: Negative for injury, kdr pain, redness, and discharge, ENT: Negative for injury, pain, and discharge, Neck: Negative for injury, pain, and swelling, Respiratory: Negative for shortness of breath, cough, wheezing, and pleuritic chest pain, Abdomen/GI: Negative for abdominal pain, nausea, vomiting, diarrhea, and constipation, Back: Negative for injury and pain, : Negative for injury, bleeding, discharge, and swelling, MS/Extremity: Negative for injury and deformity, Skin: Negative for injury, rash, and discoloration, Neuro: Negative for headache, weakness, numbness, tingling, and seizure activity. Psych: Negative for depression, anxiety, suicide ideation, homicidal ideation, and hallucinations, Allergy/Immunology: Negative for hives, rash, and allergies, Endocrine: Negative for neck swelling, polydipsia, polyuria, polyphagia, and marked weight changes, Hematologic/Lymphatic: Negative for swollen nodes, abnormal bleeding, and unusual bruising. 06:41 Cardiovascular: Positive for chest pain, Negative for edema, orthopnea, palpitations, paroxysmal nocturnal dyspnea. Exam: 06:41 Constitutional: This is a well developed, well nourished patient who is awake, alert, kdr and in no acute distress. Head/Face: Normocephalic, atraumatic. Eyes: Pupils equal round and reactive to light, extra-ocular motions intact. Lids and lashes normal. Conjunctiva and sclera are non-icteric and not injected. Cornea within normal limits. Periorbital areas with no swelling, redness, or edema. Neck: Trachea midline, no thyromegaly or masses palpated, and no cervical lymphadenopathy. Supple, full range of motion without nuchal rigidity, or vertebral point tenderness. No Meningismus. Chest/axilla: Normal chest wall appearance and motion. Nontender with no deformity. No lesions are appreciated. Cardiovascular: Regular rate and rhythm with a normal S1 and S2. No gallops, murmurs, or rubs. Normal PMI, no JVD. No pulse deficits. Respiratory: Lungs have equal breath sounds bilaterally, clear to auscultation and percussion. No rales, rhonchi or wheezes noted. No increased work of breathing, no retractions or nasal flaring. Abdomen/GI: Soft, non-tender, with normal bowel sounds. No distension or tympany. No guarding or rebound. No evidence of tenderness throughout. Back: No spinal tenderness. No costovertebral tenderness. Full range of motion. Skin: Warm, dry with normal turgor. Normal color with no rashes, no lesions, and no evidence of cellulitis. Neuro: Awake and alert, GCS 15, oriented to person, place, time, and situation. Cranial nerves II-XII grossly intact. Motor strength 5/5 in all extremities. Sensory grossly intact. Cerebellar exam normal. Normal gait. Psych: Awake, alert, with orientation to person, place and time. Behavior, mood, and affect are within normal limits. 06:41 Musculoskeletal/extremity: Bilateral BKA. 06:51 ECG was reviewed by the Attending Physician. kdr Vital Signs: 06:35 BP 162 / 99; Pulse 96; Resp 24; Temp 98.1; Pulse Ox 96% on R/A; Weight 71.21 kg; Height pf1 5 ft. 7 in. (170.18 cm); Pain 10/10; 07:01 BP 146 / 94; Pulse 87; Resp 20 S; Pulse Ox 97% on R/A; as6 07:57 BP 115 / 70; Pulse 87; Pulse Ox 98% on R/A; ap3 08:49 BP 124 / 82; Pulse 86; Pulse Ox 97% on R/A; ap3 09:29 BP 117 / 76; Pulse 83; Pulse Ox 99% on R/A; ap3 06:35 Body Mass Index 24.59 (71.21 kg, 170.18 cm) pf1 MDM: 07:03 Patient medically screened. rt 10:16 Differential diagnosis: acute myocardial infarction, congestive heart failure rt pneumonia, pneumothorax. HEART Score: History: Moderately Suspicious (1), ECG: Non specific repolarization disturbance / LBTB / PM (1), Age: > 45 and < 65 years (1), Risk Factors: > or = 3 Risk factors for atherosclerotic disease (2), Troponin: < or = 1 x Normal Limit (0), Total Score = 5. Data reviewed: vital signs, nurses notes, old medical records, lab test result(s), EKG. Consideration of Admission/Observation Escalation of care including admission/observation considered. Patient with multiple evaluations, previously recommended for outpatient stress testing, patient has 2 negative troponins, unchanged EKG. Not likely to benefit from admission at this time. Patient stable for outpatient care and instructed to follow-up with cardiology as previous instructed.. I considered the following discharge prescriptions or medication management in the emergency department Medications were administered in the Emergency Department. See MAR. Test considered but Not performed: CT: Low risk for PE, CTA not indicated. External Records Reviewed: Inpatient record: Reviewed old cardiology notes recommending outpatient stress testing. Care significantly affected by the following Social Determinants of Health: Bilateral amputee, limited transportation. Counseling: I had a detailed discussion with the patient and/or guardian regarding: the historical points, exam findings, and any diagnostic results supporting the discharge/admit diagnosis, lab results, radiology results, the need for outpatient follow up, to return to the emergency department if symptoms worsen or persist or if there are any questions or concerns that arise at home. Response to treatment: the patient's symptoms have markedly improved after treatment. 07/08 06:35 Order name: Basic Metabolic Panel; Complete Time: 07:28 kdr 07/08 06:35 Order name: CBC with Diff; Complete Time: 07:28 kdr 07/08 06:35 Order name: LFT's; Complete Time: 07:28 kdr 07/08 06:35 Order name: Magnesium; Complete Time: 07:28 kdr 07/08 06:35 Order name: NT PRO-BNP; Complete Time: 07:28 kdr 07/08 06:35 Order name: Troponin HS; Complete Time: 07:28 kdr 07/08 06:35 Order name: XRAY Chest (1 view); Complete Time: 08:08 kdr 07/08 06:35 Order name: EKG; Complete Time: 06:36 kdr 07/08 08:45 Order name: Troponin High Sensitivity; Complete Time: 10:13 EDMS 07/08 06:35 Order name: Cardiac monitoring; Complete Time: 06:45 kdr 07/08 06:35 Order name: EKG - Nurse/Tech; Complete Time: 06:45 kdr 07/08 06:35 Order name: IV Saline Lock; Complete Time: 06:45 kdr 07/08 06:35 Order name: Labs collected and sent; Complete Time: 06:45 kdr 07/08 06:35 Order name: O2 Per Protocol; Complete Time: 06:45 kdr 07/08 06:35 Order name: O2 Sat Monitoring; Complete Time: 06:45 kdr EC:51 Rate is 98 beats/min. Rhythm is regular, Paced with No ectopy. QRS [place] is Normal. kdr Clinical impression: Paced rhythm. Administered Medications: 06:55 Drug: Pepcid (famotidine) 20 mg Route: IVP; Site: left antecubital; as6 09:05 Follow up: Response: No adverse reaction ap3 06:56 Drug: morphine 4 mg Route: IVP; Infused Over: 4 mins; Site: left antecubital; as6 09:04 Follow up: Response: No adverse reaction; Pain is decreased ap3 06:56 Drug: Zofran (Ondansetron) 4 mg Route: IVP; Site: left antecubital; as6 09:04 Follow up: Response: No adverse reaction ap3 09:04 Drug: morphine 2 mg Route: IVP; Infused Over: 4 mins; Site: left antecubital; ap3 10:44 Follow up: Response: No adverse reaction; Pain is decreased ap3 Disposition Summary: 07/08/22 10:13 Discharge Ordered Location: Home rt Problem: an ongoing problem rt Symptoms: have improved rt Condition: Stable rt Diagnosis - Chest pain, unspecified rt Followup: rt - With: Kavin Keenan MD - When: 48 Hours - Reason: Discharge Instructions: - Discharge Summary Sheet rt - Nonspecific Chest Pain, Adult rt Forms: - Medication Reconciliation Form rt - Thank You Letter rt - Antibiotic Education rt - Prescription Opioid Use rt Signatures: Dispatcher [employer] Angel Laird MD MD kdr Prokisch, Amanda, RN RN ap3 Enoc Sahu RN RN as6 Cade Dye MD MD rt Mihaela mustafa RN RN pf1 Corrections: (The following items were deleted from the chart) 06:52 06:48 PMHx: Diabetes mellitus; pf1 pf1 06:52 06:48 PMHx: Diabetes - NIDDM; pf1 pf1
--- NOTE | 2022-07-08 10:14 | ER ---
Nurse's Notes [facility] Name: Ernie Rooney Age: 62 yrs Sex: Male : 1960 Arrival Date: 07/08/2022 Time: 06:34 Bed 16 Private MD: Diagnosis: Chest pain, unspecified Presentation: 07/08 06:35 Chief complaint: Patient states: left side sharp chest pain of 10 that radiates to back pf1 with tingling sensation down left arm,onset 1 hour ago while watching TV. 06:35 Coronavirus screen: Vaccine status: Patient reports receiving the 2nd dose of the covid pf1 vaccine. Client denies travel out of the [place] in the last 14 days. At this time, the client does not indicate any symptoms associated with coronavirus-19. Ebola Screen: Patient negative for fever greater than or equal to 101.5 degrees Fahrenheit, and additional compatible Ebola Virus Disease symptoms. Initial Sepsis Screen: Does the patient meet any 2 criteria? No. Patient's initial sepsis screen is negative. Does the patient have a suspected source of infection? No. Patient's initial sepsis screen is negative. Risk Assessment: Do you want to hurt yourself or someone else? Patient reports no desire to harm self or others. Onset of symptoms was July 08, 2022. 06:35 Method Of Arrival: EMS: [facility] pf1 06:35 Acuity: TONE 2 pf1 Historical: - Allergies: 06:48 Nitroglycerin; pf1 - PMHx: 06:48 Arthritis; Back pain; CAD; CHF; CVA; Depression; Fibromyalgia; GERD; Hyperlipidemia; pf1 Hypertensive disorder; Hypothyroidism; Left sided weakness from previous CVA; Myocardial infarction; Pacemaker; IDDM; - PSHx: 06:48 bilat BKA's; bypass; CABG; pf1 - Immunization history:: Adult Immunizations up to date, Client reports receiving the 2nd dose of the Covid vaccine, Flu vaccine is up to date. - Social history:: Smoking status: Patient/guardian denies using tobacco, the patient reports quitting approximately 20 years ago, Patient/guardian denies using alcohol, the patient reports quitting approximately 15 years ago, Patient/guardian denies using street drugs. Screenin:55 [facility] ED Fall Risk Assessment (Adult) History of falling in the last 3 months, pf1 including since admission No falls in past 3 months (0 pts) Confusion or Disorientation No (0 pts) Intoxicated or Sedated No (0 pts) Impaired Gait No (0 pts) Mobility Assist Device Used No (0 pt) Altered Elimination No (0 pt) Score/Fall Risk Level 0 - 2 = Low Risk Oriented to surroundings, Maintained a safe environment, Educated pt \T\ family on fall prevention, incl call for assistance when getting out of bed, Assessed \T\ reinforced patient's understanding of fall precautions, Provided non-skid footwear, Hourly rounding (assess needs \T\ fall precautionary measures) done, Used ambulatory aids as needed (educated on \T\ assisted with), Used gait belt as appropriate. Abuse screen: Denies threats or abuse. Nutritional screening: No deficits noted. Tuberculosis screening: No symptoms or risk factors identified. Assessment: 06:40 General: Appears uncomfortable, well developed, Behavior is cooperative, appropriate pf1 for age, anxious. 06:40 Pain: Complains of pain in left side chest pain that radiates to his back and tingling pf1 sensation down his left arm Pain currently is 10 out of 10 on a pain scale. Quality of pain is described as sharp, Pain began 1 hour ago. Neuro: No deficits noted. Level of Consciousness is awake, alert, obeys commands, Oriented to person, place, time, situation. Cardiovascular: Reports chest pain, Capillary refill < 3 seconds Patient's skin is warm and dry. Respiratory: No deficits noted. Airway is patent Trachea midline Respiratory effort is even, unlabored, Respiratory pattern is regular, symmetrical. GI: No deficits noted. No signs and/or symptoms were reported involving the gastrointestinal system. Abdomen is round non-distended, Bowel sounds present X 4 quads. Abd is soft and non tender X 4 quads. : No deficits noted. No signs and/or symptoms were reported regarding the genitourinary system. EENT: No deficits noted. Derm: No deficits noted. No signs and/or symptoms reported regarding the dermatologic system. Musculoskeletal: Circulation, motion, and sensation intact. Capillary refill < 3 seconds, Range of motion: intact in all extremities, patient has bilateral BKA. 07:15 Reassessment: Patient and/or family updated on plan of care and expected duration. Pain ap3 level reassessed. Patient is alert, oriented x 3, equal unlabored respirations, skin warm/dry/pink. Bedside report received from SHEBA Stubbs. Vital Signs: 06:35 BP 162 / 99; Pulse 96; Resp 24; Temp 98.1; Pulse Ox 96% on R/A; Weight 71.21 kg; Height pf1 5 ft. 7 in. (170.18 cm); Pain 10/10; 07:01 BP 146 / 94; Pulse 87; Resp 20 S; Pulse Ox 97% on R/A; as6 07:57 BP 115 / 70; Pulse 87; Pulse Ox 98% on R/A; ap3 08:49 BP 124 / 82; Pulse 86; Pulse Ox 97% on R/A; ap3 09:29 BP 117 / 76; Pulse 83; Pulse Ox 99% on R/A; ap3 06:35 Body Mass Index 24.59 (71.21 kg, 170.18 cm) pf1 ED Course: 06:34 Patient arrived in ED. as6 06:34 Angel Merlos MD is Attending Physician. kdr 06:45 Inserted saline lock: 20 gauge in left antecubital area, using aseptic technique. Blood as6 collected. 06:45 Patient has correct armband on for positive identification. Placed in gown. Bed in low pf1 position. Call light in reach. Side rails up X2. 06:48 Triage completed. pf1 06:51 XRAY Chest (1 view) In Process Unspecified. EDMS 07:03 Attending Physician role handed off by Angel Merlos MD rt 07:03 Cade Dye MD is Attending Physician. rt 07:15 Cecelia Haynes RN is Primary Nurse. ap3 09:25 Repeat lab(s) drawn. by co, sent to lab. tm3 10:13 Kavin Keenan MD is Referral Physician. rt 10:43 No provider procedures requiring assistance completed. IV discontinued, intact, ap3 bleeding controlled, No redness/swelling at site. Pressure dressing applied. 10:43 Arm band placed on left wrist. ap3 Administered Medications: 06:55 Drug: Pepcid (famotidine) 20 mg Route: IVP; Site: left antecubital; as6 09:05 Follow up: Response: No adverse reaction ap3 06:56 Drug: morphine 4 mg Route: IVP; Infused Over: 4 mins; Site: left antecubital; as6 09:04 Follow up: Response: No adverse reaction; Pain is decreased ap3 06:56 Drug: Zofran (Ondansetron) 4 mg Route: IVP; Site: left antecubital; as6 09:04 Follow up: Response: No adverse reaction ap3 09:04 Drug: morphine 2 mg Route: IVP; Infused Over: 4 mins; Site: left antecubital; ap3 10:44 Follow up: Response: No adverse reaction; Pain is decreased ap3 Medication: 10:43 VIS not applicable for this client. ap3 Outcome: 10:13 Discharge ordered by MD. rt 10:43 Discharged to home via ambulance. ap3 10:43 Condition: good 10:43 Discharge instructions given to patient, Instructed on discharge instructions, follow up and referral plans. Demonstrated understanding of instructions, follow-up care. 10:46 Patient left the ED. ap3 Signatures: Dispatcher [employer] EDMS Lopez Serrato tm3 Angel Merlos MD MD kdr Cecelia Haynes RN RN ap3 Enoc Sahu RN RN as6 Cade Dye MD MD rt Mihaela mustafa RN RN pf1 Corrections: (The following items were deleted from the chart) 06:52 06:48 PMHx: Diabetes mellitus; pf1 pf1 06:52 06:48 PMHx: Diabetes - NIDDM; pf1 pf1
[2022-07-08 11:11] VITALS: TEMP 98.1
[2022-07-08 11:21] VITALS: BP 117/76; O2SAT 99
--- NOTE | 2022-07-08 16:00 | EKG ---
Test Date: 2022-07-08 Test Time: 06:37:03 Animal Scientist: MICHELLE MEASUREMENT RESULTS: Intervals: Rate: 98 TN: 176 QRSD: 162 QT: 402 QTc: 513 [place]: P: 38 TN: 176 QRS: -42 T: 121 INTERPRETIVE STATEMENTS: Electronic ventricular pacemaker Compared to ECG 07/05/2022 05:34:18 No significant changes Electronically Signed On 07-08-22 15:59:54 DOOR WORKER by Kavin Keenan
== END 2022-07-08 10:46 | disposition home or self-care (01) ==
LOC: ER 06:31
DX: R07.89 Other chest pain (principal); E11.9 Type 2 diabetes mellitus without complications; Z95.0 Presence of cardiac pacemaker; Z95.1 Presence of aortocoronary bypass graft; Z91.048 Other nonmedicinal substance allergy status; Z86.73 Personal history of transient ischemic attack (TIA), and cerebral infarction without residual deficits
CPT/HCPCS: 93005; 85025; 80048; 36415; 83735; 80076; 84484 ×2; 83880; 71045; 96375; 96374; 99284; J2270; J2405

== ENCOUNTER 2022-07-11 04:41 | Emergency (ER) | payer OTHER ==
--- OUTSIDE RECORDS SUMMARY | 2022-07-11 04:50 | XMS REPORT | Continuity of Care Document ---
:1960 Author Organization [facility] t Address [address] [place] [address] Care Team Providers Name Role Phone MONIKA HALL MD Primary Care Physician [id number] Attending Clinician Unavailable Harshal Zhu Attending Clinician Unavailable Finn Shah Attending Clinician Unavailable Doctor Unassigned, [place] Attending Clinician Unavailable Josselyn Harding RN Attending [...] Attending Clinician Alis Garcia MD Attending Clinician [phone] Kaylyn Calvin MD Attending Clinician Tha Gunter [...] Clinician LIZETT GERARDO Attending Clinician Unavailable RICHMOND ORBLES Attending Clinician Unavailable Kendra Vaca MD Attending Clinician KENDRA VACA Attending Clinician Unavailable KENDRA VACA Attending Clinician Unavailable MICHAEL SHIRLEY Attending Clinician Unavailable Casper RAE, Michael Gaxiola Attending Clinician [phone] Nova RAE, Cortney Law Attending Clinician [phone] Emy SCRUGGS, Rhonda Attending Clinician Dennis Finley MD Attending Clinician Carlos Allen MD Attending Clinician [place] COX Attending Clinician Unavailable JACQUELYN MONTES DE OCA Attending Clinician Unavailable NICHELLE PALACIOS Attending Clinician Unavailable [id number] Admitting Clinician Unavailable Nika Martin Admitting Clinician [...] Admitting Clinician Unavailable Michael Hernandez Admitting Clinician [phone] Malia HALL Dennis Arreola Admitting Clinician [place] COX Admitting Clinician Unavailable NICHELLE PALACIOS Admitting Clinician Unavailable Payers Payer Name Policy Type Policy Number Effective Date Expiration Date Sujit daugherty [facility] [id number] [employer] [id number] 2018spring 00:00:00 [employer] [id number] [facility] [...] Added automatic ally from request for surgery [id number] Troponin I Troponin I Disease Active 2020-0 [...] 00:00: [place] involving involving 00 Medi uriel wrangell wrangell 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 Type 2 Type 2 Disease Active 2019 Univers diabetes diabetes 8-29 ity of mellitus mellitus 00:00: [place] without without 00 Medical complicati complicati Br anch on, on, without without long-term long-term current current use of use of insulin insulin Essential Essential Disease Active Uni vers hypertensi hypertensi 01-17 it y of on on 00:00: [place] [address] Medical Branch Other Other Disease Active Univers hyperlipid hyperlipid 01-17 it y of emia emia 00:00: [place] [address] Medical Branch Stroke Stroke Disease Active Univers 5-12 ity of 00:00: [place] [facility] Left-sided Left-sided Disease Active U nivers weakness weakness - ity of 00:00: [place] [facility] Left sided Left sided Disease Active U nivers numbness numbness 5- ity of 00:00: [place] 00 Medical Branch S/P admn S/P admn [...] rs angina angina 4-10 ity of 00:00: [place] [facility] Atypical Atypical Disease Active Unive rs chest pain chest pain 2-22 it y of 00:00: [place] [address] Medical Branch Chest pain Chest pain Problem [facility] Coronary CAD Problem Active [facility] artery (coronary [facility] disease artery Patient disease) [facility] Diabetic DKA Problem Active [facility] ketoacidos (diabetic Esme es is ketoacidos Patien t es) [facility] Hyperglyce Hyperglyce Problem Active [facility] bambi bambi [facility] Hypertensi Hypertensi Problem Active [facility] on on [facility] Pancreatit Pancreatit Problem Active [facility] is is [facility] Uncontroll Uncontroll Problem Active [facility] diabetes diabetes Patien t mellitus mellitus [facility] Allergies, Adverse Reactions, Alerts Allergy Allergy Status Severity Reaction(s) Onset Inactive Treating Comm ents Source Name Type Date Date Clinician No Known DA Active U [facility]22 [place] [facility] 00:[facility]: d 00 [facility] No Known DA Active U [facility] Allergie 3- [place] 00:[facility]: d 00 [facility] No Known DA Active U 2017-05 [facility] Allergie 2-31 [facility] s 00:00: [place] 00 [facility] No Known DA Active U 2017-05 [facility] Allergie 2-31 [facility] s 00:00: [place] 00 [facility] No Known DA Active U [facility] Allergie 3- [place] 00:[facility]: e 00 [facility] NO KNOWN Drug Active Univers ALLERGIE Class ity of S [place] [facility] Social History Social Habit Start Date Stop Date Quantity Comments Source History of Passive smoker University of tobacco use [place] [facility] History SDOH University o f Alcohol Frequency [place] M edical Branch History SDOH University o f Alcohol Std [place] Medical Drinks Branch History SDOH University o f Alcohol Binge [place] Medic al Branch History SDOH Food 2022-02-11 2022-02-11 1 Univers ity of Worry 00:00:00 00:00:00 [place] [facility] History SDOH Food 2022-02-11 2022-02-11 1 Univers ity of Scarcity 00:00:00 00:00:00 [place] [facility] History SDOH 2022-02-11 2022-02-11 2 University o f Transport Med 00:00:00 00:00:00 [place] Medic al Branch History SDOH 2022-02-11 2022-02-11 2 University o f Transport Non-Med 00:00:00 00:00:00 [place] M edical [facility] Exposure to 2022-01-30 2022-02-09 Not sure University of SARS-CoV-2 00:00:00 20:09:00 [place] Medical (event) Branch Tobacco use and 2022-02-09 2022-02-09 Smokeless tobacco Un iversity of exposure 00:00:00 00:00:00 non-user [place] [facility] Alcohol intake 2022-02-09 2022-02-09 1.71 /d University of 00:00:00 00:00:00 [facility] Tobacco Comment 2022-02-09 2022-02-09 quit 15 years ago Un iversity of 00:00:00 00:00:00 [facility] Education 2021-10-27 2021-10-27 9 University of 00:00:00 00:00:00 [facility] History SDOH 2020-03-16 2020-03-16 3 University o f Financial 00:00:00 00:00:00 [facility] Alcohol Comment 2019-07-18 2019-07-18 quit drinking Univvish sitvashti of 00:00:00 00:00:00 2013 but drank [facility] heavily before Branch this Sex [birth year] At [birth year] LUCY Sanders 00:00:00 00:00:00 [facility] Center Smoking Status Start Date Stop Date Source Ex-smoker 2022-02-09 00:00:00 2022-02-09 00:00:00 Universi ty of [facility] Medications Ordered Filled Start Stop Current Ordering Indication Dosage Frequency Signature Comments Components Source Medication Medication Date Date Medication? Clinician (SIG) Name Name aspirin 81 2021- No [id number] 81mg Take 1 Univers mg chewable 9-23 10-24 tablet by it y of tablet 00:00: 04:59 mouth [place] 00 :00 daily with Medical breakfast Branch for 30 days. glipiZIDE 5 2021- No [id number] 5mg Take 1 Univers mg tablet 9-23 10-24 tablet by ity of 00:00: 04:59 mouth in [place] 00 :00 the Medical morning Branch for 30 days. levothyroxi 2021- No [id number] 50ug Take 1 Univers ne 50 mcg 9-23 10-24 tablet by ity of tablet 00:00: 04:59 mouth [place] 00 :00 every Medical morning Branch for 30 days. lisinopriL 2021- No [id number] 2.5mg Take 1 Univers 2.5 mg 9-23 10-24 tablet by ity of tablet 00:00: 04:59 mouth in [place] 00 :00 the Medical morning Branch for 30 days. spironolact 2021- No [id number] 25mg Take 1 Univers one 25 mg 9-23 10-24 tablet by ity of tablet 00:00: 04:59 mouth in [place] 00 :00 the Medical morning [place] for 30 days. tamsulosin 2021- No [id number] .4mg Take 1 Univers 0.4 mg 24 9-23 10-24 capsule by ity of hr capsule 00:00: 04:59 mouth in [facility] 00 :00 the Medical morning Branch for 30 days. aspirin 81 2021-2021- No [id number] 81mg Take 1 Univers mg chewable 9-23 10-24 tablet by it y of tablet 00:00: 04:59 mouth [place] 00 :00 daily with [facility] breakfast Branch for 30 days. glipiZIDE 5 2021- No [id number] 5mg Take 1 Univers mg tablet 9- 10-24 tablet by ity of 00:00: 04:59 mouth in [place] 00 :00 the [facility] morning [place] for 30 days. levothyroxi 2021- No [id number] 50ug Take 1 Univers ne 50 mcg 9-23 10-24 tablet by ity of tablet 00:00: 04:59 mouth [place] 00 :00 every [facility] morning [place] for 30 days. lisinopriL 2021- No [id number] 2.5mg Take 1 Univers 2.5 mg 9-23 10-24 tablet by ity of tablet 00:00: 04:59 mouth in [place] 00 :00 the [facility] for 30 days. spironolact 2021- No [id number] 25mg Take 1 Univers one 25 mg 9-23 10-24 tablet by ity of tablet 00:00: 04:59 mouth in [place] 00 :00 the [facility] for 30 days. tamsulosin 2021- No [id number] .4mg Take 1 Univers 0.4 mg 24 9-23 10-24 capsule by ity of hr capsule 00:00: 04:59 mouth in [facility] 00 :00 the [facility] morning [place] for 30 days. sulfur 2021- No [id number] 5mL 5 mL, Unive rs hexafluorid 02-10 Intravenou i ty of e microsphr 16:30: 16:30 s, ONCE, 1 [place] (LUMASON) 00 :00 dose, On Medica l injection 5 Annie Branch mL 02/10/22 at 1130, Routine
geography faculty member approving Restricted medication : NINFA CASTILLO K.H. traMADoL 2021-0 Yes 50mg 50 mg, Univers (ULTRAM) 02-10 Oral, ity of tablet 50 15:10: Q6HPRN, [place] mg 57 Starting Medical on [facility] Branch Branch 02/10/22 at 1010, Until Discontinu ed, Routine, Pain (scale 7-10) lisinopriL 0 Yes 2.5mg 2.5 mg, Uni vers (PRINIVIL,Z 02-10 Oral, ity of ESTRIL) 14:00: DAILY, [place] tablet 2.5 00 First dose Med ical mg on [facility] Branch Branch 02/10/22 at 0900, Until Discontinu ed, Routine glipiZIDE 0 Yes 5mg 5 mg, Univers (GLUCOTROL) 02-10 Oral, ity of tablet 5 mg 14:00: DAILY, [place] 00 First dose Medical on [facility] Branch Branch 02/10/22 at 0900, Until Discontinu ed, Routine enoxaparin 0 Yes 30mg 30 mg, Unive rs (LOVENOX) 02-10 Subcutaneo ity of injection 14:00: [place], DAILY, [place] 30 mg 00 First dose Medical on [facility] Branch Branch 02/10/22 at 0900, Until Discontinu ed, Routine levothyroxi Yes 50ug 50 mcg, Uni vers ne 02-10 Oral, ity of (SYNTHROID) 11:00: QAM-0600, [place] tablet 50 00 First dose Medi uriel mcg on [facility] Branch Branch 02/10/22 at 0600, Until Discontinu ed, Routine morpHINE (2 2021- No 2mg 2 mg, Slow Univers mg/mL) 02-10 IV Push, ity of injection 2 08:45: 08:01 ONCE, 1 [place] mg 00 :00 dose, On [facility] 02/10/22 at 0345, Routine furosemide 0 Yes [...] dose [place] mg 00 on Mon [facility] 02/09/22 at Branch 2315, Until Discontinu [...] First dose Med ical 12.5 mg on [facility] 02/09/22 at 2315, Until Discontinu ed, Routine tamsulosin 2021-0 Yes .4mg 0.4 mg, Univ ers (FLOMAX) 02-10 Oral, ity of capsule 0.4 04:15: DAILY, [place] mg 00 First dose Medical on [facility] Branch 02/09/22 at 2315, Until Discontinu ed, Routine gabapentin 2021-0 Yes 300mg 300 mg, Uni vers (NEURONTIN) 02-10 Oral, BID, it y of capsule 300 04:15: First dose [place] mg 00 on Mon [facility] 02/09/22 at Branch 2315, Until Discontinu ed, Routine sennosides 2021-0 Yes 8.6mg 8.6 mg, Uni vers (SENOKOT) 02-10 Oral, BID, ity of tablet 8.6 04:15: First dose [place] mg 00 on Mon [facility] 02/09/22 at Branch 2315, Until Discontinu ed, Routine docusate 2021-0 Yes 100mg 100 mg, Unive rs (COLACE) 02-10 Oral, BID, ity o f capsule 100 04:15: First dose [place] mg 00 on Mon [facility] 02/09/22 at Branch 2315, Until Discontinu [...] IV ity of (D50W) 04:01: Push, PRN, [place] injection 56 Starting Medica l 25 mL on Wed Branch 02/09/22 at 2301, Until Discontinu ed, PIERRE, Blood Glucose < or = 70 mg/dL and patient is unable to swallow or has mental status changes. atorvastati 2021- No [id number] 40mg Take 1 Univers n 40 mg - 10-23 tablet by ity of tablet 00:00: 04:59 mouth at [place] 00 :00 bedtime Medical for 30 Branch days. metoprolol 2021- No [id number] 12.5mg Take 0.5 Univers succinate 9- 10-23 tablets by ity of XL 25 mg 24 00:00: 04:59 mouth in [place] hr tablet 00 :00 the Medical morning Branch for 30 days. atorvastati 2021- No [id number] 40mg Take 1 Univers n 40 mg -22 10-23 tablet by ity of tablet 00:00: 04:59 mouth at [place] 00 :00 bedtime Medical for 30 Branch days. metoprolol 2021- No [id number] 12.5mg Take 0.5 Univers succinate 02-1023 tablets [...] at 0215, 1 mL gabapentin 2021- No [id number] 300mg Take 1 Univers 300 mg 11-05 capsule by ity of capsule 00:00: 04:59 mouth 3 [place] 00 :00 (three) Medical times Branch daily for 10 days. gabapentin 2021- No [id number] 300mg Take 1 Univers 300 mg 11-05 capsule by ity of capsule 00:00: 04:59 mouth 3 [place] 00 :00 (three) Medical times Branch daily for 10 days. aspirin 81 2021- No [id number] 81mg Take 1 Univers mg chewable 6-16 07-17 tablet by it y of tablet 00:00: 04:59 mouth [place] 00 :00 daily for Medical 30 days. [place] aspirin 81 2021- No [id number] 81mg Take 1 Univers mg chewable 6-16 07-17 tablet by it y of tablet 00:00: 04:59 mouth [place] 00 :00 daily for Medical 30 days. Branch aspirin 81 2021- No [id number] 81mg Take 1 Univers mg chewable 6-16 07-17 tablet by it y of tablet 00:00: 04:59 mouth [place] 00 :00 daily for Medical 30 days. [place] proMETHazin Yes [id number] 25mg Take 1 Univers e 25 mg 6-03 tablet by ity of tablet 00:00: mouth [place] 00 every 6 Medical (six) Branch hours as needed for Nausea and Vomiting (N/V). proMETHazin Yes [id number] 25mg Take 1 Univers e 25 mg 6-03 tablet by ity of tablet 00:00: mouth [place] 00 every 6 Medical (six) Branch hours as needed for Nausea and Vomiting (N/V). proMETHazin 2021-0 Yes [id number] 25mg Take 1 Univers e 25 mg 6-03 tablet by ity of tablet 00:00: mouth [place] 00 every 6 Medical (six) Branch hours as needed for Nausea and Vomiting (N/V). proMETHazin 2021-0 Yes [id number] 25mg Take 1 Univers e 25 mg 6-03 tablet by ity of tablet 00:00: mouth [place] 00 every 6 Medical (six) Branch hours as needed for Nausea and Vomiting (N/V). proMETHazin 2021-0 Yes [id number] 25mg Take 1 Univers e 25 mg 6-03 tablet by ity of tablet 00:00: mouth [place] 00 every 6 Medical (six) Branch hours as needed for Nausea and Vomiting (N/V). proMETHazin 2021-0 Yes [id number] 25mg Take 1 Univers e 25 mg 6-03 tablet by ity of tablet 00:00: mouth [place] 00 every 6 Medical (six) Branch hours as needed for Nausea and Vomiting (N/V). fenofibrate 2021- No [id number] 134mg Take 1 Univers micronized -19 12- capsule by it y of 134 mg 00:00: 04:59 mouth [place] capsule 00 :00 daily for Medical 30 days. Branch lisinopriL 2021- No [id number] 2.5mg Take 1 Univers 2.5 mg -19 12- tablet by ity of tablet 00:00: 04:59 mouth [place] 00 :00 daily for Medical 30 days. Branch fenofibrate 2021- No [id number] 134mg Take 1 Univers micronized 5-19 12- capsule by it y of 134 mg 00:00: 04:59 mouth [place] capsule 00 :00 daily for Medical 30 days. Branch lisinopriL 2021- No [id number] 2.5mg Take 1 Univers 2.5 mg 5-19 12- tablet by ity of tablet 00:00: 04:59 mouth [place] 00 :00 daily for Medical 30 days. Branch fenofibrate 2021-2021- No [id number] 134mg Take 1 Univers micronized -19 12- capsule by it y of 134 mg 00:00: 04:59 mouth [place] capsule 00 :00 daily for Medical 30 days. Branch lisinopriL 2021- No [id number] 2.5mg Take 1 Univers 2.5 mg -31 - tablet by ity of tablet 00:00: 04:59 mouth [place] 00 :00 daily for Medical 30 days. Branch furosemide 2021- No [id number] 40mg Take 1 Univers 40 mg 5-30 [...] s: atrial fibrillati on calcitrioL 2021- No [id number] .5ug Take 1 Univers 0.5 mcg -30 -30 capsule by ity o f capsule 00:00: 04:59 mouth [place] 00 :00 daily for Medical 30 days. [place] insulin NPH 2021- No [id number] 5U inject 5 Univers (HUMULIN N 5-30 06-30 Units ity of NPH U-100 00:00: 04:59 under the [place] INSULIN) 00 :00 skin every Medic al 100 unit/mL evening Branc h injection for 30 days. atorvastati 2021- No [id number] 40mg Take 1 Univers n 40 mg 5-30 -30 tablet by ity of tablet 00:00: 04:59 mouth at [place] 00 :00 bedtime Medical for 30 Branch days. carvediloL 2021- No [id number] 3.125mg Take 1 Univers 3.125 mg 5-30 06-30 tablet by ity o f tablet 00:00: 04:59 mouth 2 [place] 00 :00 (two) Medical times Branch daily with meals for 30 days. furosemide 2021- No [id number] 40mg Take 1 Univers 40 mg 5-30 [...] s: atrial fibrillati on calcitrioL 2021- No [id number] .5ug Take 1 Univers 0.5 mcg 5-30 06-30 capsule by ity o f capsule 00:00: 04:59 mouth [place] 00 :00 daily for Medical 30 days. Branch insulin NPH 2021- No [id number] 5U inject 5 Univers (HUMULIN N 5-30 06-30 Units ity of NPH U-100 00:00: 04:59 under the [place] INSULIN) 00 :00 skin every Medic al 100 unit/mL evening Branc h injection for 30 days. atorvastati 2021- No [id number] 40mg Take 1 Univers n 40 mg 5-30 06-30 tablet by ity of tablet 00:00: 04:59 mouth at [place] 00 :00 bedtime Medical for 30 Branch days. carvediloL 2021- No [id number] 3.125mg Take 1 Univers 3.125 mg 5-30 06-30 tablet by ity o f tablet 00:00: 04:59 mouth 2 [place] 00 :00 (two) Medical times Branch daily with meals for 30 days. furosemide 2021- No [id number] 40mg Take 1 Univers 40 mg 5-30 [...] s: atrial fibrillati on calcitrioL 2021- No [id number] .5ug Take 1 Univers 0.5 mcg 5-30 06-30 capsule by ity o f capsule 00:00: 04:59 mouth [place] 00 :00 daily for Medical 30 days. Branch insulin NPH 2021- No [id number] 5U inject 5 Univers (HUMULIN N 5-30 06-30 Units ity of NPH U-100 00:00: 04:59 under the [place] INSULIN) 00 :00 skin every Medic al 100 unit/mL evening Branc h injection for 30 days. atorvastati 2021- No [id number] 40mg Take 1 Univers n 40 mg 5-30 06-30 tablet by ity of tablet 00:00: 04:59 mouth at [place] 00 :00 bedtime Medical for 30 Branch days. carvediloL 2021- No [id number] 3.125mg Take 1 Univers 3.125 mg 5-30 -30 tablet by ity o f tablet 00:00: 04:59 mouth 2 [place] 00 :00 (two) Medical times Branch daily with meals for 30 days. metFORMIN Yes [id number] 500mg Take 1 U nivers 500 mg 3-02 tablet by ity of tablet 00:00: mouth [address] [place] [address] [facility] Medical times Branch daily with meals. metFORMIN Yes [id number] 500mg Take 1 U nivers 500 mg 3-02 tablet by ity of tablet 00:00: mouth [place] ([facility]) Medical times Branch daily with meals. metFORMIN Yes [id number] 500mg Take 1 U nivers 500 mg 3-02 tablet by ity of tablet 00:00: mouth [place] ([facility]) Medical times Branch daily with meals. metFORMIN Yes [id number] 500mg Take 1 U nivers 500 mg 3-02 tablet by ity of tablet 00:00: mouth [place] ([facility]) Medical times Branch daily with meals. metFORMIN Yes [id number] 500mg Take 1 U nivers 500 mg 3-02 tablet by ity of tablet 00:00: mouth [place] ([facility]) Medical times Branch daily with meals. metFORMIN Yes [id number] 500mg Take 1 U nivers 500 mg 3-02 tablet by ity of tablet 00:00: mouth 2 [place] ([facility]) Medical times Branch daily with meals. albuterol Yes [id number] 2{puff} Inhale 2 Univers 90 2-21 Puffs 2 ity of mcg/actuati 00:00: (two) [place] on inhaler 00 times Medical daily. Branch collagenase Yes [id number] Use as Univers 250 2-21 directed ity of unit/gram 00:00: by office Juan J as ointment 00 Medical Branch cyclobenzap Yes [id number] 10mg Take 1 Univers rine 10 mg 2-21 tablet by ity of tablet 00:00: mouth 2 [place] 00 (two) Medical times Branch daily as needed for Muscle Spasms. dextrometho Yes [id number] 10mL Take 10 mL Univers rphan-guaif 2-21 [...] for Pain (scale 4-6). melatonin 3 Yes [id number] 3mg Take 1 Univers mg tablet 2-21 tablet by ity o f 00:00: mouth at [place] 00 bedtime. Medical Branch ondansetron Yes [id number] 4mg Take 1 Univers 4 mg 2-21 tablet by ity of disintegrat 00:00: mouth [place] ing tablet 00 every 8 Medica l (eight) Branch hours as needed for Nausea and Vomiting (N/V). albuterol Yes [id number] 2{puff} Inhale 2 Univers 90 2-21 Puffs 2 ity of mcg/actuati 00:00: (two) [place] on inhaler 00 times Medical daily. Branch collagenase Yes [id number] Use as Univers 250 2-21 directed ity of unit/gram 00:00: by office [place] J as ointment 00 Medical Branch cyclobenzap Yes [id number] 10mg Take 1 Univers rine 10 mg 2-21 tablet by ity of tablet 00:00: mouth 2 [place] 00 (two) Medical times Branch daily as needed for Muscle Spasms. dextrometho Yes [id number] 10mL Take 10 mL Univers rphan-guaif 2-21 [...] for Pain (scale 4-6). melatonin 3 Yes [id number] 3mg Take 1 Univers mg tablet 2-21 tablet by ity o f 00:00: mouth at [place] 00 bedtime. Medical Branch ondansetron Yes [id number] 4mg Take 1 Univers 4 mg 2-21 tablet by ity of disintegrat 00:00: mouth [place] ing tablet 00 every 8 Medica l (eight) Branch hours as needed for Nausea and Vomiting (N/V). albuterol Yes [id number] 2{puff} Inhale 2 Univers 90 2-21 Puffs 2 ity of mcg/actuati 00:00: (two) [place] on inhaler 00 times Medical daily. Branch collagenase Yes [id number] Use as Univers 250 2-21 directed ity of unit/gram 00:00: by office [place] J as ointment 00 Medical Branch cyclobenzap Yes [id number] 10mg Take 1 Univers rine 10 mg 2-21 tablet by ity of tablet 00:00: mouth 2 [place] 00 (two) Medical times Branch daily as needed for Muscle Spasms. dextrometho Yes [id number] 10mL Take 10 mL Univers rphan-guaif 2-21 [...] for Pain (scale 4-6). melatonin 3 Yes [id number] 3mg Take 1 Univers mg tablet 2-21 tablet by ity o f 00:00: mouth at [place] 00 bedtime. Medical Branch ondansetron 2022-0 Yes [id number] 4mg Take 1 Univers 4 mg 2-21 tablet by ity of disintegrat 00:00: mouth [place] ing tablet 00 every 8 Medica l (eight) Branch hours as needed for Nausea and Vomiting (N/V). albuterol Yes [id number] 2{puff} Inhale 2 Univers 90 2-21 Puffs 2 ity of mcg/actuati 00:00: (two) [place] on inhaler 00 times Medical daily. Branch collagenase Yes [id number] Use as Univers 250 2-21 directed ity of unit/gram 00:00: by office [place] J as ointment 00 Medical Branch cyclobenzap Yes [id number] 10mg Take 1 Univers rine 10 mg 2-21 tablet by ity of tablet 00:00: mouth 2 [place] 00 (two) Medical times Branch daily as needed for Muscle Spasms. melatonin 3 Yes [id number] 3mg Take 1 Univers mg tablet 2-21 tablet by ity o f 00:00: mouth at [place] 00 bedtime. Medical Branch ondansetron Yes [id number] 4mg Take 1 Univers 4 mg 2-21 tablet by ity of disintegrat 00:00: mouth [place] ing tablet 00 every 8 Medica l (eight) Branch hours as needed for Nausea and Vomiting (N/V). albuterol Yes [id number] 2{puff} Inhale 2 Univers 90 2-21 Puffs 2 ity of mcg/actuati 00:00: (two) [place] on inhaler 00 times Medical daily. Branch collagenase Yes [id number] Use as Univers 250 2-21 directed ity of unit/gram 00:00: by office [place] J as ointment 00 Medical Branch cyclobenzap Yes [id number] 10mg Take 1 Univers rine 10 mg 2-21 tablet by ity of tablet 00:00: mouth 2 [place] 00 (two) Medical times Branch daily as needed for Muscle Spasms. melatonin 3 Yes [id number] 3mg Take 1 Univers mg tablet 2-21 tablet by ity o f 00:00: mouth at [place] 00 bedtime. Medical Branch ondansetron 0 Yes [id number] 4mg Take 1 Univers 4 mg 2-21 tablet by ity of disintegrat 00:00: mouth [place] ing tablet 00 every 8 Medica l (eight) Branch hours as needed for Nausea and Vomiting (N/V). albuterol Yes [id number] 2{puff} Inhale 2 Univers 90 2-21 Puffs 2 ity of mcg/actuati 00:00: (two) [place] on inhaler 00 times Medical daily. Branch collagenase Yes [id number] Use as Univers 250 2-21 directed ity of unit/gram 00:00: by office [place] J as ointment 00 Medical Branch cyclobenzap Yes [id number] 10mg Take 1 Univers rine 10 mg 2-21 tablet by ity of tablet 00:00: mouth 2 [place] 00 (two) Medical times Branch daily as needed for Muscle Spasms. melatonin 3 Yes [id number] 3mg Take 1 Univers mg tablet 2-21 tablet by ity o f 00:00: mouth at [place] 00 bedtime. Medical Branch ondansetron Yes [id number] 4mg Take 1 Univers 4 mg 2-21 tablet by ity of disintegrat 00:00: mouth [place] ing tablet 00 every 8 Medica l (eight) Branch hours as needed for Nausea and Vomiting (N/V). dextrometho 2021- No [id number] 10mL Take 10 mL Univers rphan-guaif 07-12 [...] 00:00: 00:00 Patient 00 :00 [facility] Diflunisal Diflunisal 2015- No [place] Wynn [address] [facility] (Dolobid) (Dolobid) 01-17 [facility] 500 Mg 500 Mg 00:00: 00:00 Patient Tablet, 500 Tablet, 500 00 :00 M edical Mg [facility] Ondansetron Ondansetron 2016- No Todd Wynn [address] [facility]cl 01-17 [place] as [facility] (Zofran*) 4 (Zofran*) 4 00:00: 00:00 needed for Patient Mg Tablet, Mg Tablet, 00 :00 Nausea M edical 4 Mg 4 Mg Center Sublingual Sublingual Clopidogrel Clopidogrel Yes [address] [facility] [address] Bisulfate Bisulf[address] [facility] (Plavix) 75 (Plavix) 75 P atient Mg Tablet Mg Tablet Medic al Center Cyclobenzap Cyclobenzap Yes [address] rine Hcl rine Hcl Times A [facility] (Flexeril) (Flexeril) Day as P atient 5 Mg Tablet 5 Mg Tablet needed for Medical [facility] Spasms Doxazosin Doxazosin Yes [address] Mesylate [facility]ylate [facility] (Cardura) 8 (Cardura) 8 P [...] Tablet Mg Tablet Day [facility] Patient [facility] [place] Hydrocodone Hydrocodone Yes [address] [facility] Bit/Acetami Bit/Acetami Hours as [facility] nophen nophen needed for [place] ([place] [facility] 10-325 10-325 Center Tablet) 1 [...] Mg Tablet Mg Tablet Pat[facility] nt [facility] [place] Nitroglycer Nitroglycer Yes As Needed [facility] in in [facility] (Nitrostat) (Nitrostat) P atient 0.4 Mg 0.4 Mg Medical Tab.subl Tab.subl Center Omeprazole Omeprazole Yes [address] 20 Mg 20 Mg [facility] Capsule.dr Lind. [facility] Simvastatin Simvastatin Yes [address] 80 Mg 80 Mg [facility] Tablet Tablet Patient [facility] Tamsulosin Tamsulosin Yes Daily [facility] Hcl 0.4 Mg Hcl 0.4 Mg Esme es Cap.er.24h Cap.er.24h [facility] Tramadol Tramadol Yes [address] Hcl Hcl Daily as [facility] (Ultram) 50 (Ultram) 50 needed for Patient Mg Tablet Mg Tablet Pain Medic al Center Venlafaxine Venlafaxine Yes [address] Hcl 75 Mg Hcl 75 Mg [facility] Tab Tab Patient [facility] Albuterol Albuterol 2017- No 1 Twice [...] 06-17 [facility] Capsule., Capsule., 00:00 Patient :00 [facility] Insulin Insulin 90 Twice A [...] 25 Mg Oral 25 Mg Oral :00 [facility] Albuterol Albuterol As Needed [facility] [...] 00:00 Patient Mg Oral Mg Oral :00 [facility] Methocarbam Methocarbam [address] [...] Mg Oral 600 Mg Oral :00 M [facility] Pregabalin Pregabalin 2013- No 150 [...] Immunizations Ordered Filled Immunization Date Status Comments [facility] e Immunization Name Name Influenza [...] 2018-02-18 Completed University o f Polysaccharide, 00:00:00 [place] [facility] PPSV23 (PNEUMOVAX) [place] Influenza Virus 2018-02-18 Completed Universit y of Vaccine 00:00:00 [facility] Pneumococcal 2018-02-18 Completed University o f Polysaccharide, 00:00:00 [place] [facility] PPSV23 (PNEUMOVAX) [place] Influenza Virus 2018-02-18 Completed Universit y of Vaccine 00:00:00 [facility] Pneumococcal 2018-02-18 Completed University o f Polysaccharide, 00:00:00 [place] [facility] PPSV23 (PNEUMOVAX) Branch Influenza Virus 2018-02-18 Completed Universit y of Vaccine 00:00:00 [facility] Pneumococcal 2018-02-18 Completed University o f Polysaccharide, 00:00:00 [place] [facility] PPSV23 (PNEUMOVAX) Branch Influenza Virus 2018-02-18 Completed Universit y of Vaccine 00:00:00 [facility] Pneumococcal 2018-02-18 Completed University o f Polysaccharide, 00:00:00 [place] [facility] PPSV23 (PNEUMOVAX) Branch Influenza Virus 2018-02-18 Completed Universit y of Vaccine 00:00:00 [facility] Pneumococcal 2018-02-18 Completed University o f Polysaccharide, 00:00:00 [place] [facility] PPSV23 (PNEUMOVAX) Branch Influenza Virus 2008-03-19 Completed Universit y of Vaccine 00:00:00 [facility] Pneumococcal 2008-03-19 Completed University o f Polysaccharide, 00:00:00 [place] [facility] PPSV23 (PNEUMOVAX) Branch Influenza Virus 2008-03-19 Completed Universit y of Vaccine 00:00:00 [facility] Pneumococcal 2008-03-19 Completed University o f Polysaccharide, 00:00:00 [place] [facility] PPSV23 (PNEUMOVAX) Branch Influenza Virus 2008-03-19 Completed Universit y of Vaccine 00:00:00 [facility] Pneumococcal 2008-03-19 Completed University o f Polysaccharide, 00:00:00 [facility] ical PPSV23 (PNEUMOVAX) Branch Influenza Virus 2008-03-19 Completed Universit y of Vaccine 00:00:00 [facility] Pneumococcal 2008-03-19 Completed University o f Polysaccharide, 00:00:00 [place] [facility] PPSV23 (PNEUMOVAX) Branch Influenza Virus 2008-03-19 Completed Universit y of Vaccine 00:00:00 [facility] Pneumococcal 2008-03-19 Completed University o f Polysaccharide, 00:00:00 [place] [facility] PPSV23 (PNEUMOVAX) Branch Influenza Virus 2008-03-19 Completed Universit y of Vaccine 00:00:00 [facility] Pneumococcal 2008-03-19 Completed University o f Polysaccharide, 00:00:00 [place] [facility] PPSV23 (PNEUMOVAX) [place] Vital Signs Vital Name Observation Time Observation Value Comments Source Systolic blood 2022-02-10 105 mm[Hg] University of pressure 16:35:00 [place] [facility] Branch Diastolic blood 2022-02-10 57 mm[Hg] University o f pressure 16:35:00 [facility] Branch Heart rate 2022-02-10 65 /min University of 16:35:00 [facility] Body temperature 2022-02-10 36.22 Sandy University of 16:35:00 [facility] Branch Respiratory rate 2022-02-10 18 /min University of 16:35:00 [facility] Oxygen saturation 2022-02-10 98 /min University of in Arterial blood 16:35:00 [place] [facility]iel by Pulse oximetry Branch Body weight 2022-02-10 74.98 kg University of 08:16:00 [facility] BMI 2022-02-10 25.89 kg/m2 University of 08:16:00 [facility] Body height 2022-02-10 170.2 cm Height before University of 01:18:00 Bilat BKA [facility] Systolic blood 2021-11-09 124 mm[Hg] University of pressure 23:00:00 [facility] Diastolic blood 2021-11-09 69 mm[Hg] University o f pressure 23:00:00 [facility] Branch Heart rate 2021-11-09 72 /min University of 23:00:00 [facility] Respiratory rate 2021-11-09 25 /min University of 23:00:00 [facility] Oxygen saturation 2021-11-09 98 /min University of in Arterial blood 23:00:00 [facility] uriel by Pulse oximetry Branch Body temperature 2021-11-09 37.22 [place] University of 20:28:39 [facility] Body height 2021-11-09 170.2 cm University of 20:16:00 [facility] Body weight 2021-11-09 71.215 kg University of 20:16:00 [facility] BMI 2021-11-09 24.59 kg/m2 University of 20:16:00 [facility] Systolic blood 2021-11-05 134 mm[Hg] University of pressure 10:00:00 [facility] Branch Diastolic blood 2021-11-05 78 mm[Hg] University o f pressure 10:00:00 [facility] Heart rate 2021-11-05 81 /min University of 10:00:00 [facility] Body temperature 2021-11-05 36.28 Sandy University of 08:10:00 [place] [facility] Respiratory rate 2021-11-05 18 /min [facility] 08:00:00 [facility] Oxygen saturation 2021-11-05 99 /min [facility] Arterial blood 08:00:00 [facility] by Pulse oximetry [place] Body height 2021-11-05 170.2 cm [facility] 05:48:00 [facility] Body weight 2021-11-05 71.215 kg [facility] 05:48:00 [facility] BMI 2021-11-05 24.59 kg/m2 [facility] 05:48:00 [facility] Procedures Procedure Date / Time Performing Clinician Source Performed INSURANCE CORRESPONDENCE 2022-04-19 06:01:00 Doctor Unassigned, [facility] [place] Medical [place] TRANSTHORACIC ECHO (TTE) 2022-02-10 13:16:00 Martha Rowe [facility] COMPLETE W/ CONTRAST Medical Bra nch PHOSPHORUS 2022-02-10 10:22:00 [facility] MAGNESIUM 2022-02-10 10:22:00 [facility] TROPONIN I 2022-02-10 10:22:00 [facility] COMP. METABOLIC PANEL 2022-02-10 10:22:00 Martha Rowe [facility] ([id number]) [facility] CBC WITH DIFF 2022-02-10 10:22:00 [facility] CREATINE KINASE 2022-02-10 04:37:00 [facility] URIC ACID 2022-02-10 04:37:00 [facility] FERRITIN SERUM 2022-02-10 04:37:00 [facility] FOLATE 2022-02-10 04:37:00 [facility] TROPONIN I 2022-02-10 04:37:00 [facility] THYROID STIMULATING 2022-02-10 04:37:00 Martha Rowe [facility] HORMONE Medical Branch LIPID PANEL ([id number])(TOTAL 2022-02-10 04:37:00 [facility] Branch TRIGLYCERIDES, HDL) IRON PANEL 2022-02-10 04:37:00 [facility] GLYCOSYLATED HEMOGLOBIN 2022-02-10 04:37:00 Martha Rowe [facility] (A1C) [facility] N-TERMINAL PRO-BNP 2022-02-10 04:37:00 Jae daisy [facility] VITAMIN D, 25-OH 2022-02-10 04:37:[address] [facility] COVID-19 (ID NOW RAPID 2022-02-10 04:37:00 Martha Rowe [facility] TESTING) [facility] B-TYPE NATRIURETIC FACTOR 2022-01-30 18:10:00 CH I [facility] (BNP) Center XR CHEST 1 VW 2021-11-09 21:07:00 Troy Ku [facility] POCT GLUCOSE (AUTOMATED) 2021-11-09 20:25:00 Troy Ku [facility] MAGNESIUM 2021-11-09 20:19:00 [facility] TROPONIN I 2021-11-09 20:19:00 [facility] COMP. METABOLIC PANEL 2021-11-09 20:19:00 Troy Ku [facility] ([id number]) [facility] Branch CBC WITH DIFF 2021-11-09 20:19:00 [facility] Ku [facility] N-TERMINAL PRO-BNP 2021-11-09 20:19:00 Troy Ku [facility] XR CHEST 1 VW 2021-11-05 06:38:[address] [facility] [id number] 2020-08-11 00:00:00 ALDMO [facility] [id number] 2020-08-11 00:00:00 ALDMO [facility] [id number] 2020-08-11 00:00:00 ALDMO [facility] [id number] 2020-08-11 00:00:00 ALDMO [facility] [place] [...] Clinicians Facility Department ID 2021-06-17 Outpatient 3 [id number] ENCKY MALDONADO [id number] [facility] 10:24:03 [id number] [place] 2021-06-17 Outpatient 3 [id number] ENCKY REF [id number] [facility] 10:22:04 98419 [facility] [place] 2021-03-22 Emergency [facility] [id number] Univers 15:25:20 ity of [facility] 2021-03-22 Emergency [facility] [id number] Univers 10:56:41 ity of [facility] 2021-03-21 Emergency [facility] [id number] Univers 18:15:08 ity of [facility] 2021-03-21 Emergency [facility] [id number] Univers 17:18:22 ity of [facility] 2021-03-21 Emergency [facility] [id number] Univers 12:58:19 ity of [facility] 2021-03-21 Emergency [facility] [id number] Univers 04:06:22 ity of [facility] 2021-03-21 Emergency [facility] [id number] Univers 00:12:27 ity of [facility] 2021-03-20 Emergency [facility] [id number] Univers 00:55:44 ity of [facility] 2021-03-19 Emergency [facility] [id number] Univers 17:28:47 ity of [facility] 2021-03-19 Emergency [facility] [id number] Univers 03:16:03 ity of [facility] 2021-03-18 Emergency [facility] [id number] Univers 13:56:50 ity of [facility] 2020-08-23 Inpatient HCACL FERNANDO [id number] [facility] 17:41:00 84 [facility] 2020-04-04 Inpatient Marko, HCAMN HCAMN [id number] [facility] 14:40:00 Edward 33 [facility] 2019-10-15 Inpatient RADHA Shah, HCAPM ENDO [id number] [facility] 15:30:00 Finn [address] [facility] 2022-04-19 2022-04-19 Orders Doctor JOSE 1.2.840.114 [id number] Univers 00:00:00 00:00:00 Only Unassigned, [place] [id number] ity of [place] [facility] [id number] Juan J as [id number] [facility] 009 Branch 2022-02-11 2022-02-11 Transition LATRICE Harding 1.2.840.114 [id number] Univers 00:00:00 00:00:00 of Care Josselyntoni DU[place] [id number] it y of [place] [id number] [facility] 403 Branch 2022-02-09 2022-02-10 Outpatient U JAE [facility] DARIUS [id number] Univers 19:53:00 13:45:00 MARTHA ity of [facility] 2022-02-09 2022-02-10 Hospital Ana Maria Meza [facility] 1.2.840.114 [id number] Univers 19:53:00 13:45:00 Encounter Martha Rowe [id number] ity of [id number] [id number] [facility] 081 Branch 2022-01-30 2022-01-30 [facility] [id number] 00:00:00 00:00:00 Requisitio Esme [facility] 2022-01-30 2022-01-30 Lab [facility] [id number] 00:00:00 00:00:00 Requisitio Esme [facility] 2021-11-09 2021-11-09 Emergency X Troy KU [facility] ERT [id number] Univers 15:15:00 18:32:00 ity of [facility] 2021-11-09 2021-11-09 Emergency Troy Ku [facility] 1.2.840.114 [id number] Univers 15:15:00 18:32:00 Mckenzie PEREZ [id number] i ty of [place] [id number] [facility] [id number] [place] [id number] [place] 2021-11-05 2021-11-05 Emergency [facility] [id number] Univers 00:44:00 06:53:00 MIHAELA baugh [facility] 2021-11-05 2021-11-05 Emergency [facility] [id number] Univers 00:44:00 06:53:00 Mihaela PEREZ [id number] ity [facility] [id number] [facility] [id number] [facility] 084 [place] 2021-11-04 2021-11-04 Transition Feliciano CLAUDETTETanya 1.2.840.114 [id number] Univers 00:00:00 00:00:00 of Care Micaela DUQUE [id number] it y of [place] 4.2.7.2.686 [facility] [id number] [facility] 403 Branch 2021-11-02 2021-11-03 Outpatient X BRAYDON [facility] D[facility]US [id number] Univers 22:35:00 15:46:00 OC baugh [facility] 2021-11-02 2021-11-03 Emergency Curtis Xavier [facility] 1.2.840. 114 [id number] Univers 22:35:00 15:46:00 Oc Bryson [id number] ity of [place] 4.2.7.2.686 [facility] [phone] [facility] 081 Branch 2021-11-02 2021-11-03 Outpatient X BRAYDON [facility] D[facility] [id number] Univers 22:35:00 15:46:00 OC itvashti [facility] 2021-11-01 2021-11-01 Transition LATRICE Feliciano 1.2.840.114 [id number] Univers 00:00:00 00:00:00 of Care Micaela DUQUE [id number] it y of [place] 4.2.7.2.686 [facility] [id number] [facility] 403 Branch 2021-10-27 2021-10-29 Outpatient X DERRICK [facility] [id number] Univers 17:41:00 14:03:00 ANA MARIA vashti [facility] 2021-10-27 2021-10-29 Emergency Jameson Mejia [facility] 1.2.840. 114 [id number] Univers 17:41:00 14:03:00 Lizett Gerardo [id number] ity of [place] 4.2.7.2.686 [facility] [id number] [address] 2021-10-27 2021-10-29 Outpatient X [facility] [id number] Univers 17:41:00 14:03:00 ANA MARIA vashti [facility] 2021-10-21 2021-10-22 Emergency X [facility] E[facility] [id number] Univers 20:24:00 04:18:00 JYOTI [facility] 2021-10-21 2021-10-22 Emergency [facility] [id number] Univers 20:24:00 04:18:00 Jyoti PEREZ [id number] i [place] 4.2.7.2.686 [facility] [id number] [facility] 084 Branch 2021-10-20 2021-10-20 Transition LATRICE Aleman 1.2.840.114 [id number] Univers 00:00:00 00:00:00 of Care Rico A [place] [id number] it[id number] [id number] [facility] 403 Branch 2021-10-15 2021-10-18 Outpatient X DERRICK [facility] [id number] Univers 16:42:00 13:52:00 ANA MARIA itvashti [facility] 2021-10-15 2021-10-18 Emergency Jameson Mejia [facility] 1.2.840. 114 [id number] Univers 16:42:00 13:52:00 Ana Maria Meza [id number] ity of [place] [id number] [facility] 081 Branch 2021-07-23 2021-07-23 Transition LATRICE Farooq 1.2.840.114 [id number] Univers 00:00:00 00:00:00 of Care Marcella DU[place] [id number] i ty [id number] [phone] [address] 2021-07-19 2021-07-22 Inpatient [facility] [id number] Univers 09:10:00 17:00:00 GEOFFREY bauhg [facility] 2021-07-19 2021-07-22 [facility] Brandyn Dumont [facility] 1.2.840.1 14 [id number] Univers 09:10:00 17:00:00 Encounter Geoffrey Hill [facility] [id number] ity of [place] [phone] [facility] 109 Branch ([facility]) 2021-07-21 2021-07-21 Outpatient Wong_H VFP VFP [id number] [place] 06:58:00 06:58:00 [id number] Family Practic e 2021-07-13 2021-07-13 Transition LATRICE Aleman 1.2.840.114 [id number] Univers 00:00:00 00:00:00 of Care Rico DU[place] [id number] [place] [id number] [address] 2021-06-28 2021-07-12 Inpatient X ANGEL [facility] [id number] Univers 10:43:00 18:25:00 AMBIKA vashti [facility] 2021-06-28 2021-07-12 [facility] Jameson Mejia [facility] 1.2.840.1 14 [id number] Univers 10:43:00 18:25:00 Encounter Troy Ku [id number] ity of Ambika Fernandez [place] 4.2.7.2.686 [facility] [id number] [facility] 081 Branch 2021-02-15 2021-02-15 Outpatient R DONALDO, [facility] [id number] Univers 15:00:00 15:00:00 ALECIA [facility] 2021-01-11 2021-01-11 [facility] [id number] Univers 10:45:00 10:45:00 GINA baugh o f [facility] 2021-01-05 2021-01-05 Transition Latrice Aleman 1.2.840.114 [id number] Univers 00:00:00 00:00:00 of Care Rico [place]que [id number] ity of [place] [id number] [facility] 403 Branch 2021-01-01 2021-01-04 [facility] Wayne Can [facility] 1.2.840.1 14 [id number] Univers 14:18:00 18:10:00 Encounter Lizett Gerardo [id number] it[place] of [id number] [id number] [facility] 081 Branch 2021-01-01 2021-01-01 Orders Doctor JOSE 1.2.840.114 [id number] Univers 00:00:00 00:00:00 Only Unassigned, [place] [id number] ity of [place] [facility] 4.2.7.2.686 Juan J as [id number] [facility] 009 Branch 2020-12-17 2020-12-17 Transition Latrice Harding 1.2.840.114 [id number] Univers 00:00:00 00:00:00 of Care Josselyn Duque [id number] it y of [place] 4.2.7.2.686 [facility] [id number] [facility] 403 Branch 2020-12-14 2020-12-16 Emergency Jyoti Cedeno S [facility] 1.2.840.1 14 [id number] Univers 17:50:00 17:46:00 Ana Maria Meza [id number] ity of [place] 4.2.7.2.686 [facility] [id number] [facility] 081 Branch 2020-11-16 2020-11-16 Orders Doctor JOSE 1.2.840.114 [id number] Univers 00:00:00 00:00:00 Only Unassigned, [place] [id number] ity of [place] [facility] 4.2.7.2.686 Juan J [id number] [facility] 009 Branch 2020-10-30 2020-11-05 Inpatient EM Debi, [facility] [id number] [facility] 16:50:00 13:52:00 Fede 90771 [facility] 2020-10-31 2020-10-31 Outpatient ANNEL Carrera LABO [id number] [facility] 08:22:00 08:22:00 Fede 73 [facility] 2020-10-28 2020-10-28 Hospital Radiology [facility] 1.2.840.114 [id number] Univers 08:30:17 23:59:00 Encounter Sera [id number] ity of [place] 4.2.7.2.686 [facility] [place] [id number] [facility] 807 Branch 2020-10-28 2020-10-28 Hospital Radiology [facility] 1.2.840.114 [id number] 08:30:17 23:59:00 Encounter [place] [id number] [place] 4.2.7.2.686 [place] [id number] 2020-10-28 2020-10-28 Outpatient R RADIOLOGY [facility] [id number] Univers 00:00:00 00:00:00 ity of [place] [facility] 2020-10-12 2020-10-12 Office [facility] 1.2.840.114 [id number] Univers 14:02:10 14:50:48 Visit Bryan Sera 350.1.13.10 i ty of [place] [id number] Sc dical [facility] 204 [facility] 2020-10-12 2020-10-12 Outpatient R CHANTELLE [facility] [id number] Univers 14:00:00 14:50:48 BRYAN ity [facility] 2020-10-12 2020-10-12 Outpatient [facility] [id number] Univers 14:00:00 14:00:00 [facility] 2020-10-06 2020-10-06 Office [facility] 1.2.840.114 [id number] Univers 10:43:51 11:59:29 Visit Gina Perez [id number] ity [facility] 4.2.7.2.[place] [id number] Sc dical [address] 2020-10-06 2020-10-06 Office [facility] 1.2.840.114 [id number] 10:43:51 11:59:29 Visit Gina Perez 350.1.13.10 [place] 4.2.7.2.686 Professio [id number] [address] 2020-10-06 2020-10-06 Outpatient R IVANA [facility] [id number] Univers 10:30:00 10:30:00 GINA baugh o f [facility] 2020-10-06 2020-10-06 Orders Doctor GARCIA 1.2.840.114 [id number] Univers 00:00:00 00:00:00 Only Unassigned, [place] 350.1.13.10 ity of [place] [facility] 4.2.7.2.686 Juan J as [id number] [address] 2020-09-28 2020-09-28 [facility] 1.2.840.114 [id number] Univers 17:28:00 21:08:00 Elmerji Anuj Perez 350.1.13.10 ity of [place] 4.2.7.2.686 [facility] [id number] [facility] 084 Branch 2020-09-28 2020-09-28 Transition Latrice French 1.2.840.114 [id number] Univers 00:00:00 00:00:00 of Care Gilda [place] [id number] it y of [place].2.[place] [id number] [facility] 403 Branch 2020-09-23 2020-09-26 [facility] Wayne Can [facility] 1.2.840.1 14 [id number] Univers 13:50:00 18:28:00 Encounter Ambika Fernandez [id number] ity of [place] 4.2.7.2.686 [facility] [phone] [place] [id number] [place] 2020-09-23 2020-09-26 Inpatient X GABRIELEALEJANDRA [facility] [id number] Univers 13:50:00 18:28:00 AMBIKA baugh [facility] 2020-09-22 2020-09-22 [facility] [id number] Univers 09:45:00 09:45:00 GINA palacio [facility] 2020-09-10 2020-09-10 Outpatient [facility] [id number] Univers 16:15:00 16:15:00 BRYAN baugh [facility] 2020-09-09 2020-09-09 Transition Latrice Aleman 1.2.840.114 [id number] Univers 00:00:00 00:00:00 of Care Rico [place] [id number] ity of [place] [phone] [address] 2020-09-08 2020-09-08 Outpatient [facility] [id number] Univers 08:30:00 08:30:00 GINA palacio [facility] 2020-09-02 2020-09-07 Hospital Jose Guy [facility] 1.2.840.114 [id number] Univers 16:46:00 18:45:00 Encounter Alis Garcia [facility] 350. 1.13.10 ity of [place] up[place]n 4.2.7.2.686 [place] Kaylyn Calvin Mejia [phone] [address] ([facility]) 2020-08-26 2020-08-26 Office Tha Gunter [facility] 1.2.840.114 [id number] Univers 10:44:06 11:14:06 Visit [facility] 350.1.13.10 it y of [place] [phone] [address] Office Building 2020-08-26 2020-08-26 Outpatient R THA GUNTER [facility] [id number] Univers 10:30:00 10:30:00 ity [facility] 2020-08-25 2020-08-25 Outpatient Tim [facility]ATH [facility] [id number] Univers 10:00:00 10:00:00 GINA palacio [facility] 2020-08-24 2020-08-24 Outpatient R YENI [facility] [id number] Univers 09:00:00 09:00:00 DEIDRE baugh [facility] 2020-08-21 2020-08-21 Office [facility] 1.2.840.114 [id number] Univers 08:43:52 09:13:46 Visit Gina Perez 350.1.13.10 ity of [place] 4.2.7.2.686 [place] [phone] [place] [address] Branch Building 2020-08-21 2020-08-21 Outpatient Tim [facility] [id number] Univers 08:30:00 08:30:00 GINA palacio [facility] 2020-08-10 2020-08-14 Inpatient EM ANNEL MontanezCL INTE.02 [id number] [facility] 09:09:00 18:56:00 Johnie Reardon [facility] 2020-08-11 2020-08-11 [facility] [id number] Univers 09:15:00 09:15:00 GINA palacio [facility] 2020-08-07 2020-08-07 Out[facility] [id number] Univers 10:00:00 10:00:00 GINA palacio [facility] 2020-07-27 2020-08-06 [facility] Jameson Mejia 1.2.840.1 14 [id number] Univers 12:13:00 17:15:00 Encounter Minnie Cardona 350.1.13.10 ity of [facility] 4.2.7.2.686 [place] Drew Noriega [phone] [facility]inner [facility] [address] [place] [address] 2020-07-27 2020-08-06 Inpatient JOHNIE SKINNER [facility] [id number] Univers 12:13:00 17:15:00 ity of [facility] 2020-07-24 2020-07-24 Out[facility] [id number] Univers 13:00:00 13:00:00 GINA workman [facility] 2020-07-21 2020-07-21 Transition Latrice Aleman 1.2.840.114 [id number] Univers 00:00:00 00:00:00 of Care Rico Duque 350.1.13.10 ity of [place] 4.2.7.2.686 Noe beckett [phone] [address] 2020-07-10 2020-07-20 [facility] Janeth Leal 1.2.84 0.114 [id number] Univers 19:24:00 21:51:00 Encounter Oc Bryson 350.1.13.10 ity [address] Janeth Leal [facility] 4.2.7.2.686 [place] Minnie Cardona [phone] Medical Lisa Marroquin [address] 2020-07-17 2020-07-17 Outpatient [facility] [id number] Univers 10:00:00 10:00:00 JOSE itvashti [facility] 2020-07-10 2020-07-10 Outpatient R IVANA [facility] [id number] Univers 08:45:00 08:45:00 GINA franciscovashti ji anuj [facility] 2020-06-15 2020-06-15 Telephone [facility] 1.2.284.511 [id number] Univers 00:00:00 00:00:00 Jose Perez 350.1.13.10 i ty of [place] [facility] [phone] Sc dical nal [address] Building 2020-06-11 2020-06-11 Office [facility] 1.2.840.114 [id number] Univers 13:43:55 13:58:55 Visit Jose Reyes 350.1.13.10 it y of [place]ip [place] - [phone] Med ical [facility] 188 [address] 2020-06-11 2020-06-11 Outpatient R JANKI [facility] [id number] Univers 13:30:00 13:30:00 JOSE baugh [facility] 2020-06-03 2020-06-03 Transition Latrice Aleman 1.2.840.114 [id number] Univers 00:00:00 00:00:00 of Care Rico Duque 350.1.13.10 ity of [place] [phone] [facility] 403 [address] 2020-05-29 2020-06-02 [facility] Jameson Mejia [facility] 1.2.840.1 14 [id number] Univers 09:12:00 16:02:00 Encounter Lizett Gerardo 350.1.13.10 ity of [place] 4.2.7.2.686 [facility] [phone] [facility] 081 [address] 2020-05-29 2020-06-02 Inpatient X JAE [facility] [id number] Univers 09:12:00 16:02:00 MARTHA baugh [facility] 2020-05-29 2020-05-29 Outpatient R JANKI [facility] [id number] Univers 10:15:00 10:15:00 JOSE baugh [facility] 2020-04-23 2020-04-23 Office [facility] 1.2.840.114 [id number] Univers 13:48:18 14:03:18 Visit Jose [facility] 350.1.13.10 it y of [place] - [phone] [address] 2020-04-23 2020-04-23 Outpatient [facility] [id number] Univers 13:30:00 13:30:00 JOSE baugh [facility] 2020-04-23 2020-04-23 Orders Doctor JOSE 1.2.840.114 [id number] Univers 00:00:00 00:00:00 Only Unassigned, [place] 350.1.13.10 ity of [place] [facility] 4.2.7.2.686 Juan J as [phone] [facility] [address] 2020-04-09 2020-04-09 Office [facility] 1.2.840.114 [id number] Univers 13:58:45 14:13:45 Visit Jose [facility] 350.1.13.10 it y of Dilip Cancer 4.2.7.2.686 [facility] [place] - [phone] [address] 2020-04-09 2020-04-09 Outpatient [facility] [id number] Univers 14:00:00 14:00:00 JOSE baugh [facility] 2020-03-27 2020-03-27 Transition Latrice Aleman 1.2.840.114 [id number] Univers 00:00:00 00:00:00 of Care Rico Duque 350.1.13.10 ity of [place] 4.[place].7.2.[place] [phone] [facility] 403 [address] 2020-03-15 2020-03-26 Hospital Jameson Mejia 1.2.840.1 14 [id number] Univers 23:48:00 18:02:00 Encounter Kandis Hough 350.1.13.10 ity of Janki [facility] 4.2.7.2.68 6 [place] [phone] [facility] 098 Branch 2020-03-18 2020-03-18 Anesthesia Caio Najera Nancy 1. 2.840.114 [id number] Univers 13:52:00 16:42:00 Stephanie Franks 350.1.13.[address] [facility] 4.2.7.2.686 [place] J as [phone] [facility] 103 [address] 2020-02-06 2020-02-06 Transition Claudette Alemantanya 1.2.840.114 [id number] Univers 00:00:00 00:00:00 of Care Rico Zelayay 350.1.13.10 ity of [place] [phone] [facility] 403 [address] 2020-02-03 2020-02-05 Hospital Óscar Hermosillo [facility] 1.2.8 40.114 [id number] Univers 16:55:00 20:40:00 Encounter Martha Rowe 350.1.13.10 ity of [place] [phone] [facility] 081 [address] 2020-01-17 2020-01-17 Outpatient [facility] [id number] Univers 13:30:00 13:30:00 SENDIL ity of [facility] 2019-12-02 2019-12-02 Outpatient R [facility] [id number] Univers 15:00:00 15:00:00 ity of [facility] 2019-11-16 2019-11-21 Hospital Lopez Velazquze [facility] 1.2.840 .114 [id number] Univers 16:35:23 14:12:00 Encounter Heather Hermosillo 350.1.13.1 0 ity of [place] 4[place] [phone] [place] [address] Branch 2019-09-17 2019-09-18 [facility] 1.2.899.374 [id number] Univers 20:30:04 00:41:00 Valery Perez 350.1.13.10 ity of [place] [phone] [facility] [address] [place] 2019-09-17 2019-09-18 Emergency X ALFIE [facility] ERT [id number] Univers 20:30:04 00:41:00 WAKILI ity [facility] 2019-09-05 2019-09-05 Outpatient [facility] [id number] Univers 14:00:00 14:00:00 SENDIL ity [facility] 2019-09-05 2019-09-05 Telemedici [facility] 1.2.840.114 [id number] Univers 08:17:17 08:47:17 ne Visit Sendil Hannah Perez 350.1.13.10 ity of [place] [phone] Sc dicwv nal [address] [place] [address] 2019-09-05 2019-09-05 Telephone [facility] 1.2.035.994 [id number] Univers 00:00:00 00:00:00 Sendil Hannah Perez 350.1.13.10 ity of [place] 4.[place].2.[place] [phone] Sc dicwv nal [address] [place] [address] 2019-09-03 2019-09-03 Outpatient R ANNA [facility] [id number] Univers 10:30:00 10:30:00 SENDIL ity [facility] 2019-08-20 2019-08-20 Telephone [facility] 1.2.678.684 [id number] Univers 00:00:00 00:00:00 Nika SHAW 350.1.13.10 ity of [place].2.[place] [facility] [phone] Sc dical [address] 2019-08-19 2019-08-19 Refill Nancy Lee 1.2.840.114 [id number] Univers 00:00:00 00:00:00 Lola Figueroa 350.1.13.10 it y of Hospital 4.2.7.2.686 [place] J as [phone] [facility] [address] [place] 2019-08-16 2019-08-16 Refill Nancy Lee 1.2.840.114 [id number] Univers 00:00:00 00:00:00 Lola Carolina 350.1.13.[address] [facility] 4.2.7.2.686 [place] J as [phone] [facility] 090 [address] 2019-08-15 2019-08-15 Emergency [facility] 1.2.840.114 [id number] Univers 11:58:21 15:28:00 Demarcus Perez 350.1.13.10 i ty of [place] [id number] [facility] 084 [address] 2019-08-15 2019-08-15 Emergency [facility] ERT [id number] Univers 11:58:21 15:28:00 DEMARCUS ity [facility] 2019-08-15 2019-08-15 Case JOSE Castillo 1.2.840.114 [id number] Univers 00:00:00 00:00:00 Management Ninfa FIGUEROA 350.1.13.10 ity [facility] 4.2.7.2.686 [place] J as [phone] [facility] 008 [address] 2019-08-15 2019-08-15 Telephone Anna [facility] 1.2.930.295 [id number] Univers 00:00:00 00:00:00 Ninfa Perez 350.1.13.10 it[place] of [place] 4[place] [facility] [phone] [facility] 059 [facility] 2019-08-12 2019-08-12 Transition Latrice Ramirez 1.2.840.114 [id number] Univers 00:00:00 00:00:00 of Care Joan Duque 350.1.13.10 ity of [place] 4[place].2.[place] [phone] [facility] 403 [address] 2019-08-06 2019-08-09 Emergency Wayne Can [facility] 1.2.840. 114 [id number] Univers 14:06:47 15:19:00 Lizett Gerardo 350.1.13.10 ity of [place] 4[place] [phone] [facility] [address] 2019-08-06 2019-08-09 Outpatient X BRETT [facility] [id number] Univers 14:06:47 15:19:00 LIZETT ity of [facility] 2019-08-06 2019-08-06 Outpatient R TRAVIS, [facility] [id number] Univers 13:30:00 13:30:00 RICHMOND ity o f [facility] 2019-08-06 2019-08-06 Outpatient R TRAVIS, [facility] [id number] Univers 11:00:00 11:00:00 RICHMOND ity o f [facility] 2019-08-06 2019-08-06 Outpatient R TRAVIS, [facility] [id number] Univers 11:00:00 11:00:00 JUNIEJULIANN baugh o f [facility] 2019-08-06 2019-08-06 Orders Doctor JOSE 1.2.840.114 [id number] Univers 00:00:00 00:00:00 Only Unassigned, [place] 350.1.13.10 ity of [place] [facility] 4.2.7.2.686 Juan J as [phone] [facility] 009 [address] 2019-07-19 2019-07-19 Transition Latrice French 1.2.840.114 [id number] Univers 00:00:00 00:00:00 of Care Gilda Duque 350.1.13.10 it y of [place].7.2.[place] [id number] [facility] 403 [address] 2019-07-17 2019-07-18 Emergency Valery Carrillo 1.2.840 .114 [id number] Univers 21:36:10 21:05:00 Abu-Josy Tareq [place] 350.1.13.1 0 ity of Hospital 4.2.7.2.686 [place] J as [phone] [facility] 090 [address] 2019-07-17 2019-07-18 Outpatient X ABU-JOSY, TAREQ [facility] [id number] Univers 21:36:10 21:05:00 ABU-JOSY, TAREQ ity of [facility] 2019-07-03 2019-07-03 Transition Latrice French 1.2.840.114 [id number] Univers 00:00:00 00:00:00 of Care Gilda Duque 350.1.13.10 it y of [place] [phone] [address] 2019-07-01 2019-07-01 Transition Latrice French 1.2.840.114 [id number] Univers 00:00:00 00:00:00 of Care Gilda Duque 350.1.13.10 it y of [place] [phone] [facility] [address] [place] 2019-06-27 2019-06-27 Transition Latrice French 1.2.840.114 [id number] Univers 00:00:00 00:00:00 of Care Gilda Duque 350.1.13.10 it y of [place] 4[place] [id number] [facility] [address] [place] 2019-06-24 2019-06-26 [facility] [id number] Univers 14:51:01 18:37:00 MICHAEL ity [facility] 2019-06-24 2019-06-26 Hospital Janeth Leal 1.2.84 0.114 [id number] Univers 14:51:01 18:37:00 Encounter Michael Shirley 350.1.[address] [facility] 4.2.7.2.686 [place] J as [phone] [facility] 090 [address] 2019-02-06 2019-02-06 Telephone JOSE Bhatt 1.2.840.114 [id number] Univers 00:00:00 00:00:00 Cortney FIGUEROA 350.1.13.10 i ty of [facility] 4.2.7.2.686 [place] J as [id number] [facility] 008 [address] 2019-02-05 2019-02-05 Emergency [facility] 1.2.487.395 [id number] Univers 17:30:29 21:52:00 Jyoti Perez 350.1.13.10 i ty of [place] [phone] [place] [address] Branch 2019-01-30 2019-01-30 Transition Claudette Quevedotanya 1.2.840.114 [id number] Univers 00:00:00 00:00:00 of Care Rhonda Duque 350.1.13.10 it y of [place] 4.[place].2.[place] [id number] [facility] 403 [address] 2019-01-24 2019-01-29 [facility] Wayne Can 1.2.840.1 14 [id number] Univers 16:01:37 14:55:00 Encounter Dennis Finley 350.1.13.10 ity [facility] 4.2.7.2.686 [place] J as [phone] [place] [address] Branch 2019-01-22 2019-01-22 Transition EmyClaudettetanya 1.2.840.114 [id number] Univers 00:00:00 00:00:00 of Care Rhonda Duque 350.1.13.10 it y of [place] 4[place] [id number] [facility] 403 [address] 2019-01-16 2019-01-19 [facility] Carlos Allen 1.2.840.11 4 [id number] Univers 23:52:03 14:36:00 Encounter Martha Rowe 350.1.13.10 ity of [place], Dennis [place] p[facility] 4.2.7.2.686 [place] [id number] [place] [address] Branch 2017-10-23 2017-10-27 Discharged 1 [facility] [id number] 17:29:00 16:54:00 Inpatient ALEXIS 90 Luke s Patient [facility] 2017-04-03 2017-04-04 [id number] 23:17:00 03:53:00 Emergency LAIRD 56 Luke s Room Patient [facility] 2017-03-05 2017-03-09 Discharged ER [facility] [id number] 06:54:00 10:58:00 Inpatient NICHELLE 46 Luke s (obs) [facility] 2017-01-04 2017-01-05 Discharged [facility] [id number] 10:33:00 18:56:00 Inpatient 61 Favio s (obs) [facility] Orders Doctor JOSE 1.2.840.114 [id number] Univers 00:00:00 00:00:00 Only Unassigned, [place] 350.1.13.10 ity of [place] [facility] 4.2.7.2.686 Juan J as [phone] Medi uriel 009 Branch Results Test Description Test Time Test Comments Results Result Comments Source Transthoracic echo (TTE) 2022-02-10 17:43:07 Test Item Value Reference Range Interpretation Comme nts Height (test code = 6664760874) in Weight (test code = 9394402149) lbs Systolic BP (test code = 5951009050) mmHg Diastolic BP (test code = 1527552293) mmHg Heart Rate (test code = 4821033628) bpm BSA (test code = 3979686069) 1.86 m2 Ao root diam (test code = 8003621924) 3.10 cm Aortic root (test code = 1391604498) 3.1 cm Ao root annulus (test code = 3.1 cm 9700994852) LVOT diameter (test code = 1.83 cm 9360017929) LVOT area (test code = 3996040944) 2.60 cm2 LVIDD (test code = 3789140381) 4.80 cm Left Ventricular End Diastolic Volume 107.5 mL by Teichholz Method (test code = 5842292) IVS (test code = 2764304867) 1.35 cm Interventricular Septum Diastolic 1.35 cm Thickness by 2D (test code = 5302029) LVPWD (test code = 5922693260) 1.35 cm PW (test code = 6191097705) 1.35 cm 0.6-1.1 EF(Teich) (test code = 5666184636) 30.10 % LVIDS (test code = 4912890084) 4.10 cm Left Ventricular End Systolic Volume 75.1 mL by Teichholz Method (test code = 0031370) FS (test code = 7807552429) 14 % EF - 2D (test code = 88802831) 30.10 % LA size (test code = 3262142471) 4.1 cm TR Peak Haile (test code = 5089621534) 232.4 cm/s Triscuspid Valve Regurgitation Peak mmHg Gradient (test code = 4194803393) LAV(MOD-sp4) (test code = 9116982828) 103.10 mL E wave decelartion time (test code = 0.15 s 7736969555) MV stenosis pressure 1/2 time (test 44.6 ms code = 5427726738) MV Peak E Haile (test code = 110.2 cm/s 5432972849) MV Peak A Haile (test code = 28.7 cm/s 4568378425) E/A ratio (test code = 5629613731) ratio MR max PG (test code = 4113319598) 78.70 mm[Hg] MR max haile (test code = 7744583389) 443.40 cm/s Mr max haile (test code = 1296569355) 443.4 m/s MV Prop V (test code = 6804871400) 45.00 cm/s MV E/e' septal (test code = 9.2 cm/s 1642799383) Tapse (test code = 3511866921) 1.53 cm LVOT stroke volume (test code = 41.70 cm3 4588124664) LVOT peak haile (test code = 87.2 cm/s 8783673483) LVOT mn grad (test code = 7554518135) mmHg AV LVOT peak gradient (test code = mmHg 4500946261) LVOT peak VTI (test code = 15.8 cm 8232532319) LV V1 mean (test code = 0134327224) 51.30 cm/s Aortic valve mean velocity (test code 78.3 cm/s = 8383221768) Ao peak haile (test code = 8868567236) 111.8 cm/s Ao VTI (test code = 6364226629) 21.5 cm AV area by cont VTI (test code = 1.9 cm2 2485617630) AV area peak haile (test code = 2.1 cm2 9565741722) Ao max PG (test code = 1573604175) 5.00 mm[Hg] AV peak gradient (test code = mmHg 6956270526) AV valve area (test code = 1.94 cm2 0787975134) AV mean gradient (test code = mmHg 4602329427) Radiology Study observation (narrative) (test code = 88649-9) DIANE (test code = DIANE) Table formatting [...] lateral and apex.All other segments are normal. [facility] [id number] 12:01:08 Test Item Value Reference Interpretation Comments Range TROPONIN I (test 0.021 ng/mL See_Comment [Automated code = 1558194561) message] The system which generated this result [...] biotin. Lab Interpretation Normal (test code = 44407-5) [facility]22-[facility]-22 11:50:23 Test Item Value Reference Range Interpretation Comments MAGNESIUM (test code = 3498249132) 1.7 mg/dL 1.7-2.4 Lab Interpretation (test code = Normal 51127-8) [facility] PANEL (91916)2022-02-10 11:50:22 Test Item Value Reference Range Interpretation Comments NA (test code = 138 mmol/L 135-145 9252416071) K (test code = 3.9 mmol/L 3.5-5 4153856920) CL (test code = 108 mmol/L 98-108 4671382907) CO2 TOTAL (test code = 24 mmol/L 23-31 5947208739) AGAP (test code = 2-16 1397966804) BUN (test code = 19 mg/dL 7-23 4443565975) GLUCOSE (test code = 117 mg/dL 70-110 H 8871457171) CREATININE (test code = 0.91 mg/dL 0.6-1.25 0459095845) TOTAL BILI (test code = 1.0 mg/dL 0.1-1.1 6939738697) CALCIUM (test code = 8.5 mg/dL 8.6-10.6 L 1876281602) T PROTEIN (test code = 6.4 g/dL 6.3-8.2 9714822388) ALBUMIN (test code = 3.4 g/dL 3.5-5 L 2986015144) ALK PHOS (test code = 177 U/L 34-122 H 9458451058) ALTv (test code = 24 U/L 5-50 1742-6) AST(SGOT) (test code = 38 U/L 13-40 7797645161) eGFR (test code = mL/min/1.73m2 1125495476) DIANE (test code = DIANE) Association of [...] tests). Lab Interpretation Abnormal (test code = 90312-3) [facility]22-[facility] 11:50:22 Test Item Value Reference Range Interpretation Comments PHOSPHORUS (test code = 4889075878) 5.1 mg/dL 2.5-5 H Lab Interpretation (test code = Abnormal 88798-2) [facility] WITH [id number] 11:19:02 Test Item Value Reference Range Interpretation [...] RDW-SD (test code = 48.0 fL 38.5-51.6 17390-6) RDW-CV (test code = 14.2 % 12.1-15.4 788-0) PLT (test code = See_Comment [Automated 777-3) message] The sy stem which generated this result transmitted reference range : 150 - 328 10*3/ ?L. The reference r batsheva was not used to interpret this result as normal/abnormal . MPV (test code = 10.2 fL 9.8-13 50617-3) NRBC/100 WBC (test See_Comment [Automat ed code = 3046523404) message] The system which generated this result transmitted reference range : 0.0 - 10.0 /100 WBCs. The refer ence range was not u sed to interpret th is result as normal/abnormal . NRBC x10^3 (test code See_Comment [Auto mated = 7237006880) message] The s ystem which generated this result transmitted reference range : 10*3/?L. The reference range was not used to interpret this result as normal/abnormal . GRAN MAT (NEUT) % 68.5 % (test code = 770-8) IMM GRAN % (test code 0.40 % = 0096719277) LYMPH % (test code = 19.0 % 736-9) MONO % (test code = 8.3 % 5905-5) EOS % (test code = 3.4 % 713-8) BASO % (test code = 0.4 % 706-2) GRAN MAT x10^3(ANC) 3.65 10*3/uL 1.99-6.95 (test code = 1250390262) IMM GRAN x10^3 (test 0-0.06 code = 7447969217) LYMPH x10^3 (test code 1.01 10*3/uL 1.09-3.23 L = 731-0) MONO x10^3 (test code 0.44 10*3/uL 0.36-1.02 = 742-7) EOS x10^3 (test code = 0.18 10*3/uL 0.06-0.53 711-2) BASO x10^3 (test code 0.01-0.09 = 704-7) Lab Interpretation Abnormal (test code = 38630-3) [facility] (BNP)2022-01-30 23:33:12 Test Item Value Reference Range Interpretation Comments BNP (test code = 65882-9) 443 pg/mL 0-100 H DIANE (test code = DIANE) Community Planner ID - ADRY Lab Interpretation (test Abnormal code = 04368-4) [facility]22-01-30 23:33:12 Test Item Value Reference Range Interpretation Comments BNP (test code = 84831-9) 443 pg/mL 0-100 H DIANE (test code = DIANE) Community Planner ID - ADRY Lab Interpretation (test Abnormal code = 34171-6) [facility]2022-01-30 23:33:12 Test Item Value Reference Range Interpretation Comments BNP (test code = 41288-9) 443 pg/mL 0-100 H DIANE (test code = DIANE) Community Planner ID - ADRY Lab Interpretation (test Abnormal code = 26639-9) [facility]-30 23:33:12 Test Item Value Reference Range Interpretation Comments BNP (test code = 30811-8) 443 pg/mL 0-100 H DIANE (test code = DIANE) Community Planner ID - ADRY Lab Interpretation (test Abnormal code = 58049-3) [facility]30 23:33:12 Test Item Value Reference Range Interpretation Comments BNP (test code = 54271-5) 443 pg/mL 0-100 H DIANE (test code = DIANE) Community Planner ID - ADRY Lab Interpretation (test Abnormal code = 33185-6) [facility]22-01-30 23:33:12 Test Item Value Reference Range Interpretation Comments BNP (test code = 90892-6) 443 pg/mL 0-100 H DIANE (test code = DIANE) Community Planner ID - ADRY Lab Interpretation (test Abnormal code = 64045-0) [facility]-30 23:33:12 Test Item Value Reference Range Interpretation Comments BNP (test code = 16904-9) 443 pg/mL 0-100 H DIANE (test code = DIANE) Community Planner ID - ADRY Lab Interpretation (test Abnormal code = 04203-6) [facility]22-01-30 23:33:12 Test Item Value Reference Range Interpretation Comments BNP (test code = 33079-2) 443 pg/mL 0-100 H DIANE (test code = DIANE) Community Planner ID - ADRY Lab Interpretation (test Abnormal code = 70087-4) [facility] CenterB-type Natriuretic Factor (BNP)2022-01-30 23:33:12 Test Item Value Reference Range Interpretation Comments BNP (test code = 24915-4) 443 pg/mL 0-100 H DIANE (test code = DIANE) Community Planner ID - ADRY Lab Interpretation (test Abnormal code = 99188-3) [facility]22-[facility]-30 23:33:12 Test Item Value Reference Range Interpretation Comments BNP (test code = 96271-6) 443 pg/mL 0-100 H DIANE (test code = DIANE) Community Planner ID - ADRY Lab Interpretation (test Abnormal code = 67988-3) [facility]2022-01-30 23:33:12 Test Item Value Reference Range Interpretation Comments BNP (test code = 06954-0) 443 pg/mL 0-100 H DIANE (test code = DIANE) Community Planner ID - ADRY Lab Interpretation (test Abnormal code = 41092-6) [facility]2022-01-30 23:33:12 Test Item Value Reference Range Interpretation Comments B-TYPE NATRIURETIC PEPTIDE (BEAKER) 443 pg/mL 0-100 H (test code = 700) Community Planner ID - ADRYTROPONIN [id number] 20:57:59 Test Item Value Reference Interpretation Comments Range TROPONIN I (test 0.017 ng/mL See_Comment [Automated code = 4583549103) message] The system which generated this result [...] biotin. Lab Interpretation Normal (test code = 23216-1) [facility] [id number] 20:54:59 Test Item Value Reference Range Interpretation Comments NT-proBNP (test code 6490 pg/mL See_Comment H [Autom ated = 2231971780) message] The system which generated this result transmitted reference range : <=125. The reference range was not used to interpret this result as normal/abnormal . DIANE (test code = DIANE) Biotin has been reported to cause a negative bias, interpret results relative to patient's use of biotin. Lab Interpretation Abnormal (test code = 92527-7) [facility]2022-[facility]-21 20:46:35 Test Item Value Reference Range Interpretation Comments MAGNESIUM (test code = 7595905379) 1.5 mg/dL 1.7-2.4 L Lab Interpretation (test code = Abnormal 59385-4) [facility] CenterCOMP[facility] METABOLIC PANEL (30249)2021-11-09 20:46:34 Test Item Value Reference Range Interpretation Comments NA (test code = 140 mmol/L 135-145 0041037337) K (test code = 3.9 mmol/L 3.5-5.0 0945488969) CL (test code = 111 mmol/L 98-108 H 9730853865) CO2 TOTAL (test code = 16 mmol/L 23-31 L 6455956214) AGAP (test code = 2-16 4009337478) BUN (test code = 14 mg/dL 7-23 2140077896) GLUCOSE (test code = 189 mg/dL 70-110 H 0488446585) CREATININE (test code = 0.66 mg/dL 0.60-1.25 1373668447) TOTAL BILI (test code = 0.8 mg/dL 0.1-1.9 5642749042) CALCIUM (test code = 8.3 mg/dL 8.6-10.6 L 3852713379) T PROTEIN (test code = 6.5 g/dL 6.3-8.2 1034056849) ALBUMIN (test code = 3.3 g/dL 3.5-5.0 L 1429180049) ALK PHOS (test code = 136 U/L 34-122 H 7919109742) ALTv (test code = 18 U/L 5-50 1742-6) AST(SGOT) (test code = 26 U/L 13-40 3839826450) eGFR (test code = mL/min/1.73m2 1983652192) DIANE (test code = DIANE) Association of [...] tests). Lab Interpretation Abnormal (test code = 93630-0) [facility] WITH [id number] 20:33:30 Test Item Value Reference Range Interpretation Comments WBC (test code = See_Comment [Automated 0864-2) message] The sy stem which generated this result transmitted reference range : 4.20 - 10.70 10*3/?L. The reference range was not used to interpret this result as normal/abnormal . RBC (test code = See_Comment [Automated 231-8) message] The sy stem which generated this [...] RDW-SD (test code = 45.4 fL 38.5-51.6 44306-5) RDW-CV (test code = 14.2 % 12.1-15.4 788-0) PLT (test code = See_Comment [Automated 777-3) message] The sy stem which generated this result transmitted reference range : 150 - 328 10*3/ ?L. The reference r batsheva was not used to interpret this result as normal/abnormal . MPV (test code = 9.8 fL 9.8-13.0 72483-6) NRBC/100 WBC (test See_Comment [Automat ed code = 6247677857) message] The system which generated this result transmitted reference range : 0.0 - 10.0 /100 WBCs. The refer ence range was not u sed to interpret th is result as normal/abnormal . NRBC x10^3 (test code <0.01 See_Comment [Auto mated = 8501735778) message] The s ystem which generated this result transmitted reference range : 10*3/?L. The reference range was not used to interpret this result as normal/abnormal . GRAN MAT (NEUT) % 62.3 % (test code = 770-8) IMM GRAN % (test code 0.80 % = 8737995470) LYMPH % (test code = 25.1 % 736-9) MONO % (test code = 6.7 % 5905-5) EOS % (test code = 4.7 % 713-8) BASO % (test code = 0.4 % 706-2) GRAN MAT x10^3(ANC) 4.76 10*3/uL 1.99-6.95 (test code = 6978295599) IMM GRAN x10^3 (test 0.06 10*3/uL 0.00-0.06 code = 8588895648) LYMPH x10^3 (test code 1.92 10*3/uL 1.09-3.23 = 731-0) MONO x10^3 (test code 0.51 10*3/uL 0.36-1.02 = 742-7) EOS x10^3 (test code = 0.36 10*3/uL 0.06-0.53 711-2) BASO x10^3 (test code 0.03 10*3/uL 0.01-0.09 = 704-7) Lab Interpretation Abnormal (test code = 61114-6) [facility] CenterPO[facility]SE (AUTOMATED)2021-11-09 20:27:39 Test Item Value Reference Range Interpretation Comments POCT GLU (test code = 7716668169) 190 mg/dL 70-110 H Lab Interpretation (test code = Abnormal 22406-1) [facility] CenterGLU[facility]SE BEDSIDE [id number] 11:52:00 Test Item Value Reference Range Interpretation Comments GLUCOSE BEDSIDE TESTING (test code = 92 mg/dL 70-110 N GLUBED) GLUCOSE BEDSIDE [id number] 08:05:00 Test Item Value Reference Range Interpretation Comments GLUCOSE BEDSIDE TESTING (test code = 62 mg/dL 70-110 L GLUBED) GLUCOSE BEDSIDE [id number] 20:40:00 Test Item Value Reference Range Interpretation Comments GLUCOSE BEDSIDE TESTING (test code 105 mg/dL 70-110 N = GLUBED) GLUCOSE BEDSIDE [id number] 17:02:00 Test Item Value Reference Range Interpretation Comments GLUCOSE BEDSIDE TESTING (test code 128 mg/dL 70-110 H = GLUBED) GLUCOSE BEDSIDE [id number] 16:37:00 Test Item Value Reference Range Interpretation Comments GLUCOSE BEDSIDE TESTING (test code 105 mg/dL 70-110 N = GLUBED) GLUCOSE BEDSIDE [id number] 08:17:00 Test Item Value Reference Range Interpretation Comments GLUCOSE BEDSIDE TESTING (test code = 88 mg/dL 70-110 N GLUBED) GLUCOSE BEDSIDE [id number] 19:45:00 Test Item Value Reference Range Interpretation Comments GLUCOSE BEDSIDE TESTING (test code 115 mg/dL 70-110 H = GLUBED) GLUCOSE BEDSIDE [id number] 18:13:00 Test Item Value Reference Range Interpretation Comments GLUCOSE BEDSIDE TESTING (test code = 74 mg/dL 70-110 N GLUBED) GLUCOSE BEDSIDE [id number] 17:29:00 Test Item Value Reference Range Interpretation Comments GLUCOSE BEDSIDE TESTING (test code = 44 mg/dL 70-110 LL GLUBED) GLUCOSE BEDSIDE [id number] 12:26:00 Test Item Value Reference Range Interpretation Comments GLUCOSE BEDSIDE TESTING (test code = 96 mg/dL 70-110 N GLUBED) GLUCOSE BEDSIDE [id number] 08:21:00 Test Item Value Reference Range Interpretation Comments GLUCOSE BEDSIDE TESTING (test code = 77 mg/dL 70-110 N GLUBED) GLUCOSE BEDSIDE [id number] 20:12:00 Test Item Value Reference Range Interpretation Comments GLUCOSE BEDSIDE TESTING (test code = 91 mg/dL 70-110 N GLUBED) GLUCOSE BEDSIDE [id number] 16:42:00 Test Item Value Reference Range Interpretation Comments GLUCOSE BEDSIDE TESTING (test code 106 mg/dL 70-110 N = GLUBED) GLUCOSE BEDSIDE [id number] 11:49:00 Test Item Value Reference Range Interpretation Comments GLUCOSE BEDSIDE TESTING (test code = 89 mg/dL 70-110 N GLUBED) GLUCOSE BEDSIDE [id number] 08:22:00 Test Item Value Reference Range Interpretation Comments GLUCOSE BEDSIDE TESTING (test code = 68 mg/dL 70-110 L GLUBED) GLUCOSE BEDSIDE [id number] 20:05:00 Test Item Value Reference Range Interpretation Comments GLUCOSE BEDSIDE TESTING (test code 137 mg/dL 70-110 H = GLUBED) GLUCOSE BEDSIDE [id number] 16:42:00 Test Item Value Reference Range Interpretation Comments GLUCOSE BEDSIDE TESTING (test code = 98 mg/dL 70-110 N GLUBED) GLUCOSE BEDSIDE [id number] 11:13:00 Test Item Value Reference Range Interpretation Comments GLUCOSE BEDSIDE TESTING (test code 118 mg/dL 70-110 H = GLUBED) GLUCOSE BEDSIDE [id number] 07:37:00 Test Item Value Reference Range Interpretation Comments GLUCOSE BEDSIDE TESTING (test code 140 mg/dL 70-110 H = GLUBED) COMPREHENSIVE METABOLIC [id number] 06:34:00 Test Item Value Reference Range Interpretation [...] TOTAL (test code = ALKP) CBC W/AUTO [id number] 06:25:00 Test Item Value Reference Range Interpretation [...] DIFF/SCN CRITERIA = MDIFF) - CT ABDOMEN W/[id number] 03:09:00 [facility] 1960 Sex: M Name: FAITH VANCE [facility] : 1960 Age/S: 60 / M [address] Unit #: [id number] Loc: [place] [address] Phys: Fede Carrera DO Acct: [id number] Dis Date: Status: ADM IN PHONE #: [phone] Exam Date: 10/31/20201919 FAX #: Reason: NAUSEA, VOMITING, DIARRHEA EXAMS: CPT: [id number] CT ABDOMEN W/CONTRAST 83405 EXAM: - CT ABDOMEN W/CONTRAST LOCATION: H61 [...] Report (CONTINUED) Name: FAITH VANCE [facility] : 1960 Age/S: 60 / M [address] Unit #: [id number] Loc: [place] [address] Phys: Fede Carrera DO Acct: [id number] Dis Date: Status: ADM IN PHONE #: [phone] Exam Date: 10/31/20201919 FAX #: Reason: NAUSEA, VOMITING, DIARRHEA EXAMS: CPT: [id number] CT ABDOMEN W/CONTRAST 13097 <Continued> small bowel wall thickening. The appendix [...] effusions. at 0309 Reported and signed by: Cramen Encarnacion M.D. CC: Nika Martin MD; Fede Carrera DO Technologist:RT Rohan(R) CTDI: DLP: Trnscb Date/Time: 11/01/2020 (308) t.SDR.TH15 Orig Print D/T: S: 11/01/2020 (0312) PAGE 2 Signed ReportGLUCOSE BEDSIDE [id number] 21:34:00 Test Item Value Reference Range Interpretation Comments GLUCOSE BEDSIDE TESTING (test code 161 mg/dL 70-110 H = GLUBED) GLUCOSE BEDSIDE [id number] 17:32:00 Test Item Value Reference Range Interpretation Comments GLUCOSE BEDSIDE TESTING (test code 136 mg/dL 70-110 H = GLUBED) - XR ABDOMEN 1 [id number] 12:44:00 [facility] 1960 Sex: M [facility]: [facility] [place] [facility] 1960 Age/S: 60 / M [address] [facility] Unit #: [id number] Loc: [place] [address] Phys: Fede Carrera DO Acct: [id number] Dis Date: Status: ADM IN PHONE #: [phone] Exam Date: 10/31/2020 1223 FAX #: Reason: Abdominal pain in the lower qudarants EXAMS: CP T: [id number] XR ABDOMEN 1 V 89990 Fluoro Time: DAP (Gy m2): Air Kerma [...] DO PAGE1 Signed Report Name: [facility] [place] : 1960 Age/S: 60 / M [address] [place] [address] Unit #: [id number] Loc: [place] [address] Phys: Fede Carrera DO Acct: [id number] Dis Date: Status: ADM IN PHONE #: [phone] Exam Date: 10/31/2020 122 FAX #: Reason: Abdominal pain in the lower qudarants EXAMS: CPT: [id number] XR ABDOMEN 1 V 43776 Fluoro Time: DAP (Gy m2): Air Kerma (mGy): <Continued> Technologist: Cecelia Arias RT(R) Trnscb Date/Time: 10/31/2020 (1244) t.SDR.AGV OrigPrint D/T: S: 10/31/2020 (6039) PAGE 2 Signed Report GLUCOSE BEDSIDE [id number] 11:58:00 Test Item Value Reference Range Interpretation Comments GLUCOSE BEDSIDE TESTING (test code 105 mg/dL 70-110 N = GLUBED) GLUCOSE BEDSIDE [id number] 08:01:00 Test Item Value Reference Range Interpretation Comments GLUCOSE BEDSIDE TESTING (test code 106 mg/dL 70-110 N = GLUBED) [id number] 22:46:00 Test Item Value Reference Range Interpretation [...] yby method. Completed by Nursing: NOGLUCOSE BEDSIDE [id number] 21:55:00 Test Item Value Reference Range Interpretation Comments GLUCOSE BEDSIDE TESTING (test code 119 mg/dL 70-110 H = GLUBED) [id number] 19:33:00 Test Item Value Reference Range Interpretation [...] method. Completed by Nursing: NOCoronavirus 2019 nCoV [id number] 18:46:00 Test Item Value Reference Range Interpretation Comments Coronavirus 2019 nCoV Negative Negative Per arnie nufacturer, Bedside (test code = negativ e results should [id number]) be treated aspresumptive a nd, if inconsistent [...] with COVID-19. Spec Comments: NNT PRO-BRAIN NATRIURETIC [id number] 15:51:00 Test Item Value Reference Range Interpretation Comments NT PRO-BRAIN NATRIURETIC PEPTI 6079 PG/ML 0-100 H (test code = PROBNP) Completed by Nursing: [id number] 15:51:00 Test Item Value Reference Range Interpretation [...] yby method. Completed by Nursing: NOBASIC METABOLIC [id number] 15:51:00 Test Item Value Reference Range Interpretation [...] Completed by Nursing: NO- XR CHEST 1 [id number] 15:42:00 [facility] 1960 Sex: M Name: FAITH VANCE [facility] : 1960 Age/S: 60 / M [address] Unit #: [id number] Loc: [place] [address] Phys: Todd Jacobo MD Acct: [id number] Dis Date: Status: PRE ER PHONE #:[phone] Exam Date: 10/30/2020 1524 FAX #: Reason: chest pain EXAMS: CPT: [id number] XR CHEST 1V 29473 Fluoro Time: DAP (Gy m2): Air Kerma (mGy): Single View Chest. Location: [facility] Clinical Indication: 60-year-old with chest pain Comparison: [...] VANCE : 1960 Age/S: 60 / M [address] [place] [address] Unit #: [id number] Loc: [place] [address] Phys: Todd Jacobo MD Acct: [id number] Dis Date: Status: PRE ER PHONE #: [phone] Exam Date: 10/30/2020 1524 FAX #: Reason: chest pain EXAMS: CPT: [id number] XR CHEST 1 V 96454 Fluoro Time: DAP (Gy m2): Air Kerma (mGy): <Continued> Technologist: Kim Andrews RT(R)(CT) Trnscb Date/Time: 10/30/2020 (1541) tMATTR.RB24 Orig Print D/T: S: 10/30/2020 (6064) PAGE 2 Signed ReportCBC W/O [id number] 15:31:00 Test Item Value Reference Range Interpretation [...] 9.70 fL 7.0-9.6 H MPV) BASIC METABOLIC [id number] 21:42:00 Test Item Value Reference Range Interpretation [...] 9.6 mg/dL 8.0-10.5 N CA) HEPATIC FUNCTION [id number] 21:42:00 Test Item Value Reference Range Interpretation [...] 114 IUnit/L 20-125 N code = ALKP) [id number] 21:42:00 Test Item Value Reference Range Interpretation Comments LIPASE (test code = LIP) 70 U/L 13-57 H [id number] 21:42:00 Test Item Value Reference Range Interpretation [...] by method. UA RFLX MICR CULT IF [id number] 21:37:00 Test Item Value Reference Range Interpretation [...] INDWELLING CATH (CEDENO)Cath Status: Under 72 hoursPROTHROMBIN [id number] 21:35:00 Test Item Value Reference Range Interpretation Comments PROTHROMBIN TIME 22.4 SECONDS 9.3-12.9 H PATIENT (test code = PTP) INTERNATIONAL NORMAL 2.0 0.8-1.2 H TARGE T INR BY RATIO [...] (to prevent recurrent infar ct). THROMBOPLASTIN TIME [id number] 21:35:00 Test Item Value Reference Range Interpretation Comments THROMBOPLASTIN TIME 41.7 Seconds 25.0-39.5 H Therape utic Range: PARTIAL (test code = 50.4 - 88.3 Seconds PTT) Effective 09/04/2018 CBC W/AUTO [id number] 21:29:00 Test Item Value Reference Range Interpretation [...] = MDIFF) - CT ABD PELVIS W/O [id number] 20:49:00 [facility] : 1960 Sex: M Name: FAITH VANCE [facility] : 1960 Age/S: 60 / M [address] [place] [address] Bl Unit #: [id number] Loc: [place] [address] Phys: Gisel Eugene SENSORY SCIENTIST Acct: [id number] Dis Date: Status: REG ERPHONE #: [phone] Exam Date: 08/23/20202024 FAX #: [phone] Reason: DIFFUSE ABDOMINAL PAIN EXAMS: CPT CODE: [id number] CT ABD PELVIS W/O CONT 96516 Clinical indication: Diffuse abdominal pain.Contrast - No [...] 1 Signed Report (CONTINUED) Name: FAITH VANCE [facility] : 1960 Age/S: 60 / M [address] [place] [address] Unit #: [id number] Loc: [place] [address] Phys: Gisel Eugene SENSORY SCIENTIST Acct: [id number] Dis Date: Status: REG ER PHONE #: [phone] Exam Date: 08/23/20202024 FAX #: [phone] Reason: DIFFUSE ABDOMINAL PAIN EXAMS: CPT CODE: [id number] CT ABD PELVIS W/O CONT 75476 <Continued> Peritoneum/Other: No extraluminal air. No extraluminal [...] Fanta(R)(CT) CTDI: DLP: Trnscb Date/Time: 08/23/2020 (2048) t.SDR.VB9 Orig Print D/T: S: 08/23/2020 (2051) PAGE 2 Signed [id number] 16:58:00 Test Item Value Reference Range Interpretation Comments GLUBED (test code = 159 MG/DL 70-110 H Performe d by certified GLUBED) dope house operator helper at [facility] [id number] 11:58:00 Test Item Value Reference Range Interpretation Comments GLUBED (test code = 149 MG/DL 70-110 H Performe d by certified GLUBED) dope house operator helper at [facility] BASIC METABOLIC [id number] 08:00:00 Test Item Value Reference Range Interpretation [...] 9.9 mg/dL 8.0-10.5 N CA) CBC W/AUTO [id number] 07:08:00 Test Item Value Reference Range Interpretation [...] DIFF REQUIRED (test code NO = MDIFF) [id number] 05:21:00 Test Item Value Reference Range Interpretation Comments GLUBED (test code = 150 MG/DL 70-110 H Performe d by certified GLUBED) dope house operator helper at [facility] [id number] 21:13:00 Test Item Value Reference Range Interpretation Comments GLUBED (test code = 129 MG/DL 70-110 H Performe d by certified GLUBED) dope house operator helper at [facility] [id number] 16:48:00 Test Item Value Reference Range Interpretation Comments GLUBED (test code = 116 MG/DL 70-110 H Performe d by certified GLUBED) dope house operator helper at [facility] [id number] 12:18:00 Test Item Value Reference Range Interpretation Comments GLUBED (test code = 136 MG/DL 70-110 H Performe d by certified GLUBED) dope house operator helper at [facility] [id number] 12:18:00 Test Item Value Reference Range Interpretation Comments GLUBED (test code = 151 MG/DL 70-110 H Performe d by certified GLUBED) dope house operator helper at [facility] CBC W/AUTO [id number] 07:32:00 Test Item Value Reference Range Interpretation [...] (test code NO = MDIFF) BASIC METABOLIC [id number] 07:29:00 Test Item Value Reference Range Interpretation [...] code = 9.0 mg/dL 8.0-10.5 N CA) [id number] 05:19:00 Test Item Value Reference Range Interpretation Comments GLUBED (test code = 135 MG/DL 70-110 H Performe d by certified GLUBED) dope house operator helper at [facility] [id number] 20:31:00 Test Item Value Reference Range Interpretation Comments GLUBED (test code = 189 MG/DL 70-110 H Performe d by certified GLUBED) dope house operator helper at [facility] [id number] 17:41:00 Test Item Value Reference Range Interpretation Comments GLUBED (test code = 140 MG/DL 70-110 H Performe d by certified GLUBED) dope house operator helper at [facility] - CTA CHEST FOR [id number] 13:48:00 [facility] : 1960 Sex: M Name: FAITH VANCE [facility] : 1960 Age/S: 60 / M [address] Unit #: [id number] Loc: [place] [address] Phys: Gina Gonzalez HAND ROLLER ENGRAVER Acct: [id number] Dis Date: Status: ADM IN PHONE #: [phone] Exam Date: 08/12/2020911 FAX #: [phone] Reason: CP, elevated D-dimer EXAMS: CPT CODE: [id number] [place] [address] PROCEDURE: CTA CHEST INDICATION: CP, elevated D-dimer; [...] 1 Signed Report (CONTINUED) Name: FAITH VANCE [facility] : 1960 Age/S: 60 / M [address] [place] [address] Blvd Unit #: [id number] Loc: [place] [address] Phys: Gina Gonzalez NP Acct: [id number] Dis Date: Status: ADM IN PHONE #: [phone] Exam Date: 08/12/2020911 FAX #: [phone] Reason: CP, elevated D-dimer EXAMS: CPT CODE: [id number] [place] [address] <Continued> contrast enhancement. No acute abnormality demonstrated. MUSCULOSKELETAL: Healed median sternotomy. No acute skeletal abnormality. IMPRESSION: 1. Negative for pulmonary embolic disease within limitations noted. 2. Atherosclerosis. 3. Coronary arterial calcifications with prior coronary arterial stents and CABG. 4. Interstitial edema. No consolidation. 5. Small bilateral pleural effusions. SL: [id number] at 1348 Reported and signed by: Chritsiano Piña M.D. CC: Johnie Montanez MD; Gina Gonzalez NP; Nika Martin MD Rosa hnologist:Kate Camacho RT(R)(CT) CTDI: DLP: Trnscb Date/Time: 08/12/2020 (1348) tOBINNA Orig Print D/T: S: 08/12/2020 (3751) PAGE 2 Signed ReportGLUBED 2020-08-12 11:38:00 Test Item Value Reference Range Interpretation Comments GLUBED (test code = 146 MG/DL 70-110 H Performe d by certified GLUBED) dope house operator helper at [facility] CBC W/AUTO [id number] 09:17:00 Test Item Value Reference Range Interpretation [...] (test code NO = MDIFF) BASIC METABOLIC [id number] 08:28:00 Test Item Value Reference Range Interpretation [...] code = 8.3 mg/dL 8.0-10.5 N CA) [id number] 08:28:00 Test Item Value Reference Range Interpretation Comments PHOSPHOROUS (test code = PHOS) 3.6 MG/DL 2.5-4.9 N [id number] 08:28:00 Test Item Value Reference Range Interpretation Comments MAGNESIUM (test code = MAG) 1.94 mg/dL 1.80-2.40 N [id number] 07:16:00 Test Item Value Reference Range Interpretation Comments GLUBED (test code = 170 MG/DL 70-110 H Performe d by certified GLUBED) dope house operator helper at [facility] [id number] 07:16:00 Test Item Value Reference Range Interpretation Comments GLUBED (test code = 137 MG/DL 70-110 H Performe d by certified GLUBED) dope house operator helper at [facility] [id number] 17:01:00 Test Item Value Reference Range Interpretation Comments GLUBED (test code = 88 MG/DL 70-110 N Performe d by certified GLUBED) dope house operator helper at [facility] [id number] 16:56:00 Test Item Value Reference Range Interpretation Comments ACT-ISTAT (test code 186 SEC 74-137 H Perform ed by certified = ACTI) dope house operator helper at [facility] EYG-[id number] 15:03:00 Test Item Value Reference Range Interpretation Comments ACT-ISTAT (test code 235 SEC 74-137 H Perform ed by certified = ACTI) dope house operator helper at [facility] [id number] 11:33:00 Test Item Value Reference Range Interpretation Comments GLUBED (test code = 97 MG/DL 70-110 N Performe d by certified GLUBED) dope house operator helper at [facility] [id number] 06:54:00 Test Item Value Reference Range Interpretation Comments GLUBED (test code = 136 MG/DL 70-110 H Performe d by certified GLUBED) dope house operator helper at [facility] BASIC METABOLIC [id number] 06:00:00 Test Item Value Reference Range Interpretation [...] COMMENTS: To be done morning of Heart [id number] 06:00:00 Test Item Value Reference Range Interpretation Comments PHOSPHOROUS (test code = PHOS) 4.1 MG/DL 2.5-4.9 N COMMENTS: To be done morning of Heart [id number] 06:00:00 Test Item Value Reference Range Interpretation Comments MAGNESIUM (test code = MAG) 1.74 mg/dL 1.80-2.40 L COMMENTS: To be done morning of Heart CathTHROMBOPLASTIN TIME [id number] 05:55:00 Test Item Value Reference Range Interpretation Comments THROMBOPLASTIN TIME 37.9 Seconds 25.0-39.5 N Therape utic Range: PARTIAL (test code = 50.4 - 88.3 Seconds PTT) Effective 09/04/2018 CBC W/AUTO [id number] 05:44:00 Test Item Value Reference Range Interpretation [...] COMMENTS: To be done morning of Heart [id number] 05:44:00 Test Item Value Reference Range Interpretation Comments GLUBED (test code = 92 MG/DL 70-110 N Performe d by certified GLUBED) dope house operator helper at [facility] HGBA1C%2020-08-10 17:22:00 Test Item Value Reference Range Interpretation Comments HGBA1C% (test code = HGBA1C%) 6.6 %A1C 4.8-6.0 H [id number] 17:17:00 Test Item Value Reference Range Interpretation Comments GLUBED (test code = 118 MG/DL 70-110 H Performe d by certified GLUBED) dope house operator helper at [facility] TSH REFLEX TO [id number] 15:37:00 Test Item Value Reference Range Interpretation Comments TSH REFLEX TO FT4 (test code = 3.19 IU/mL 0.42-5.47 N TSHREFLEX) [id number] 15:37:00 Test Item Value Reference Range Interpretation [...] y by method. COVID 19 Asymptomatic IH [id number] 11:35:00 Test Item Value Reference Range Interpretation [...] y tests. COMMENTS: If not done this ktneskifpMILVDOQM-[id number] 11:31:00 Test Item Value Reference Range Interpretation [...] titative results may babak y by method. [id number] 11:28:00 Test Item Value Reference Range Interpretation [...] to interpret this result as normal/abnormal . [id number] 10:48:00 Test Item Value Reference Range Interpretation Comments GLUBED (test code = 158 MG/DL 70-110 H Performe d by certified GLUBED) dope house operator helper at [facility] B-TYPE NATRIURETIC [id number] 08:19:00 Test Item Value Reference Range Interpretation Comments B-TYPE NATRIURETIC PEPTIDE (test 508.0 PG/ML 0-100 H code = BNP) BASIC METABOLIC [id number] 08:11:00 Test Item Value Reference Range Interpretation [...] 9.1 mg/dL 8.0-10.5 N CA) HEPATIC FUNCTION [id number] 08:11:00 Test Item Value Reference Range Interpretation [...] 174 IUnit/L 20-125 H code = ALKP) [id number] 08:11:00 Test Item Value Reference Range Interpretation Comments MAGNESIUM (test code = MAG) 1.80 mg/dL 1.80-2.40 N [id number] 08:11:00 Test Item Value Reference Range Interpretation [...] may babak y by method. BASIC METABOLIC [id number] 08:09:00 Test Item Value Reference Range Interpretation [...] code = CA) mg/dL 8.0-10.5 HEPATIC FUNCTION [id number] 08:09:00 Test Item Value Reference Range Interpretation Comments TOTAL PROTEIN (test code = PROT) g/dL 6.4-8.2 ALBUMIN (test code = ALB) g/dL 3.4-5.0 BILIRUBIN TOTAL (test code = BILT) mg/dL 0.0-1.0 BILIRUBIN DIRECT (test code = BILD) MG/DL 0.0-0.30 SGOT/AST (test code = AST) IUnit/L 15-37 SGPT/ALT (test code = ALT) IUnit/L 30-65 ALKALINE PHOSPHATASE TOTAL (test IUnit/L 20-125 code = ALKP) [id number] 08:09:00 Test Item Value Reference Range Interpretation Comments MAGNESIUM (test code = MAG) mg/dL 1.80-2.40 [id number] 08:09:00 Test Item Value Reference Range Interpretation [...] results may babak y by method. PROTHROMBIN [id number] 08:06:00 Test Item Value Reference Range Interpretation [...] (to prevent recurrent infar ct). THROMBOPLASTIN TIME [id number] 08:06:00 Test Item Value Reference Range Interpretation Comments THROMBOPLASTIN TIME 44.5 Seconds 25.0-39.5 H Therape utic Range: PARTIAL (test code = 50.4 - 88.3 Seconds PTT) Effective 09/04/2018 CBC W/AUTO [id number] 07:58:00 Test Item Value Reference Range Interpretation [...] NO = MDIFF) - XR CHEST 1 [id number] 07:57:00 [facility] : 1960 Sex: M FAX: Todd Jacobo MD [phone] [place]: St: REG FAX: Martínez Dash NP [phone] Name: FAITH VANCE [facility] : 1960 Age/S: 60/M [address] [place] [address] Blvd Unit #: [id number] Loc: [place] [address] Phys: Martínez Dash NP Acct: [id number] Dis Date: Status: REG ER PHONE #: [phone] Exam Date: 08/10/2020 [facility] FAX #: [phone] Reason: Chest Pain EXAMS: CPT CODE: [id number] XR CHEST 1 [id number] Chest single view 08/10/2020 HISTORY: Chest pain. Comparison is made to 05/21/2018 FINDINGS: Pacemaker and midline sternotomy wires are stable. The lungs are hypoinflated. No consolidation or pleural effusion is present. No vascular congestion or interstitial edema is present. Heart size is mildly enlarged. Aorta is unchanged. IMPRESSION: Hypoinflated lungs. No acute cardiopulmonary process. SL:[id number] at 0757 Reported and signed by: Khai Kruse M.D. CC: Todd Jacobo MD; Martínez Dash NP Technologist: RT Ann(Tim) Trnscrd Date/Time/By: 08/10/2020 (0757) : By: [email or web address] Orig Print D/T: S: 08/10/2020 (0800) PAGE 1 Signed Report COMPREHENSIVE METABOLIC [id number] 18:02:00 Test Item Value Reference Range Interpretation [...] 50-136 H TOTAL (test code = ALKP) [id number] 18:02:00 Test Item Value Reference Range Interpretation Comments AMYLASE (test code = SERGIO) 82 Unit/L 25-115 N [id number] 18:02:00 Test Item Value Reference Range Interpretation Comments LIPASE (test code = LIP) 185 Unit/L 114-286 N COMPREHENSIVE METABOLIC [id number] 17:56:00 Test Item Value Reference Range Interpretation [...] TOTAL Unit/L 50-136 (test code = ALKP) [id number] 17:56:00 Test Item Value Reference Range Interpretation Comments AMYLASE (test code = SERGIO) Unit/L 25-115 [id number] 17:56:00 Test Item Value Reference Range Interpretation Comments LIPASE (test code = LIP) 185 Unit/L 114-286 N CBC W/AUTO [id number] 17:46:00 Test Item Value Reference Range Interpretation [...] CRITERIA MDIFF) - CT ABD PELVIS W/O [id number] 17:46:00 Name: FAITH VANCE : 1960 Age/S: 58 / M [address] Unit #: [id number] Loc: [place] [address] Phys: Nila Chester MD Acct: [id number] Dis Date: Status: REGER PHONE #: [phone] Exam Date: 01/03/2019 8491 FAX #: Reason: llq EXAMS: CPT: [id number] CT ABDPELVIS W/O CONT 74981 Location of dictation: B2 CT abdomen and [...] VANCE : 1960 Age/S: 58 / M [address] Unit #: [id number] Loc: [place] [address] Phys: Nila Chester MD Acct: [id number] Dis Date: Status: REG ER PHONE #: [phone] Exam Date: 01/03/2019 1730 FAX #: Reason: llq EXAMS: CPT: [id number] CT ABD PELVIS W/O CONT 17256 <Continued> at 1746 Reported and signed by: Renuka Willett M.D. CC: Nila Chester MD Technologist:Tavon Jurado, RT(R)(CT)(MRI) CTDI: DLP: Trnscb Date/Time: 01/03/2019 (1746) [email or web address] Orig Print D/T: S: 01/03/2019 (5035) PAGE 2 Signed ReportBedside [id number] 11:47:00 Test Item Value Reference Range Interpretation Comments Bedside Glucose (test code = 68320-5) 155 70-120 H Meter ID: [id number] Midlothian Medical Centerodium Ajble2560-99-89 08:31:00 Test Item Value Reference Range Interpretation Comments Sodium Level (test code = 2951-2) 139 136-145 [facility] LakewayPotassium Zpmbp7761-08-43 08:31:00 Test Item Value Reference Range Interpretation Comments Potassium Level (test code = 2823-3) 4.0 3.5-5.1 [facility] LakewayChloride [id number] 08:31:00 Test Item Value Reference Range Interpretation Comments Chloride Level (test code = 2075-0) 106 98-107 [facility] LakewayCarbon Dioxide Qhdpp1194-19-04 08:31:00 Test Item Value Reference Range Interpretation Comments Carbon Dioxide Level (test code = 25 -29 8-9) [facility] LakewayAnion [id number] 08:31:00 Test Item Value Reference Range Interpretation Comments Anion Gap (test code = 05579-0) 12.0 8-16 [facility] LakewayBlood Urea Npfhfmza6420-12-26 08:31:00 Test Item Value Reference Range Interpretation Comments Blood Urea Nitrogen (test code = 7 7-26 3094-0) [facility] LakewayCreatinine2018-06-08 08:31:00 Test Item Value Reference Range Interpretation Comments Creatinine (test code = 2160-0) 0.72 0.72-1.25 [facility] LakewayBUN/Creatinine Gsanm1678-13-76 08:31:00 Test Item Value Reference Range Interpretation Comments BUN/Creatinine Ratio (test code = 10 6-25 3097-3) [facility] LakewayEstimat Glomerular Filtration [id number] 08:31:00 Test Item Value Reference Range Interpretation Comments Estimat Glomerular Filtration Rate 60- >60 (test code = 37331-1) Ranges were taken from the National Kidney Disease Education Program and the National Kidney Foundation literature.Reference ranges:60 or greater: Lbtuss48- 59 (for 3 consecutive months): Chronic kidneydisease 15 or less: Kidney failure [facility] LakewayGlucose Vaeon4836-40-51 08:31:00 Test Item Value Reference Range Interpretation Comments Glucose Level (test code = OAV0860) 195 74-118 H [facility] LakewayCalcium Feecu5817-98-87 08:31:00 Test Item Value Reference Range Interpretation Comments Calcium Level (test code = 99666-2) 9.0 8.4-10.2 [facility] LakewayWhite Blood Nyaiv3285-89-20 08:12:00 Test Item Value Reference Range Interpretation Comments White Blood Count (test code = 6690-2) 6.06 4.8-10.8 [facility] LakewayRed Blood Bwjzn6326-94-94 08:12:00 Test Item Value Reference Range Interpretation Comments Red Blood Count (test code = 789-8) 4.22 4.3-5.7 L [facility] LakewayHemoglobin2018-06-08 08:12:00 Test Item Value Reference Range Interpretation Comments Hemoglobin (test code = 89606-2) 12.5 14.0-18.0 L [facility] LakewayHematocrit2018-06-08 08:12:00 Test Item Value Reference Range Interpretation Comments Hematocrit (test code = 4544-3) 36.2 38.2-49.6 L [facility] LakewayMean Corpuscular Koqanm1736-20-58 08:12:00 Test Item Value Reference Range Interpretation Comments Mean Corpuscular Volume (test code = 85.8 81-99 787-2) [facility] LakewayMean Corpuscular Zrjxbrppib2722-20-36 08:12:00 Test Item Value Reference Range Interpretation Comments Mean Corpuscular Hemoglobin (test code 29.6 28-32 = 785-6) [facility] LakewayMean Corpuscular Hemoglobin Qsqvrix3208-49-51 08:12:00 Test Item Value Reference Range Interpretation Comments Mean Corpuscular Hemoglobin Concent 34.5 31-35 (test code = 786-4) [facility] LakewayRed Cell Distribution Shqmd3181-18-71 08:12:00 Test Item Value Reference Range Interpretation Comments Red Cell Distribution Width (test code 14.2 11.7-14.4 = 51163-0) [facility] LakewayPlatelet Wggtn8368-80-49 08:12:00 Test Item Value Reference Range Interpretation Comments Platelet Count (test code = 777-3) 263 140-360 [facility] LakewayNeutrophils (%) (Auto)2017-10-27 08:12:00 Test Item Value Reference Range Interpretation Comments Neutrophils (%) (Auto) (test code = 51.2 38.7-80.0 74987-0) [facility] LakewayLymphocytes (%) (Auto)2017-10-27 08:12:00 Test Item Value Reference Range Interpretation Comments Lymphocytes (%) (Auto) (test code = 33.7 18.0-39.1 736-9) [facility] LakewayMonocytes (%) (Auto)2017-10-27 08:12:00 Test Item Value Reference Range Interpretation Comments Monocytes (%) (Auto) (test code = 9.1 4.4-11.3 5905-5) [facility] LakewayEosinophils (%) (Auto)2017-10-27 08:12:00 Test Item Value Reference Range Interpretation Comments Eosinophils (%) (Auto) (test code = 4.8 0.0-6.0 713-8) [facility] LakewayBasophils (%) (Auto)2017-10-27 08:12:00 Test Item Value Reference Range Interpretation Comments Basophils (%) (Auto) (test code = 0.7 0.0-1.0 706-2) [facility] LakewayIM GRANULOCYTES %2017-10-27 08:12:00 Test Item Value Reference Range Interpretation Comments IM GRANULOCYTES % (test code = IM 0.5 0.0-1.0 GRANULOCYTES %) [facility] LakewayNeutrophils # (Auto)2017-10-27 08:12:00 Test Item Value Reference Range Interpretation Comments Neutrophils # (Auto) (test code = 3.1 2.1-6.9 751-8) [facility] LakewayLymphocytes # (Auto)2017-10-27 08:12:00 Test Item Value Reference Range Interpretation Comments Lymphocytes # (Auto) (test code = 2.0 1.0-3.2 18224-9) [facility] LakewayMonocytes # (Auto)2017-10-27 08:12:00 Test Item Value Reference Range Interpretation Comments Monocytes # (Auto) (test code = 742-7) 0.6 0.2-0.8 [facility] LakewayEosinophils # (Auto)2017-10-27 08:12:00 Test Item Value Reference Range Interpretation Comments Eosinophils # (Auto) (test code = 0.3 0.0-0.4 711-2) [facility] LakewayBasophils # (Auto)2017-10-27 08:12:00 Test Item Value Reference Range Interpretation Comments Basophils # (Auto) (test code = 704-7) 0.0 0.0-0.1 [facility] LakewayAbsolute Immature Granulocyte (efne0373-39-96 08:12:00 Test Item Value Reference Range Interpretation Comments Absolute Immature Granulocyte (auto 0.03 0-0.1 (test code = Absolute Immature Granulocyte (auto) [facility] LakewayCreatine Kinase [id number] 15:14:00 Test Item Value Reference Range Interpretation Comments Creatine Kinase MB (test code = 3.90 0-5.0 23823-4) [facility] LakewayTroponin [id number] 15:14:00 Test Item Value Reference Range Interpretation Comments Troponin I (test code = DTA7068) 0.054 0-0.300 [facility] LakewayCreatine Bvcjzv2673-94-76 15:07:00 Test Item Value Reference Range Interpretation Comments Creatine Kinase (test code = 2157-6) 297 30-200 H [facility] LakewayHemoglobin A1c Tzciftz5691-81-33 08:04:00 Test Item Value Reference Range Interpretation Comments Hemoglobin A1c Percent (test code = 12.6 4.0-7.0 H Hemoglobin A1c Percent) [facility] LakewayTriglycerides Smpzg4567-39-64 06:57:00 Test Item Value Reference Range Interpretation Comments Triglycerides Level (test code = 200 0-149 H 2571-8) [facility] LakewayCholesterol Qumgz5455-30-93 06:57:00 Test Item Value Reference Range Interpretation Comments Cholesterol Level (test code = 2093-3) 239 0-199 H Less than 200 mg/dL Low Sfeg372 - 239 mg/dL Borderline Qoap558 mg/dl and greater High RiskB[facility] – LakewayLDL Qdzphxwufwj8994-88-66 06:57:00 Test Item Value Reference Range Interpretation Comments LDL Cholesterol (test code = 2089-1) 164 60-130 H [facility] LakewayHDL Ajrhvutwxdw6414-50-82 06:57:00 Test Item Value Reference Range Interpretation Comments HDL Cholesterol (test code = 2085-9) 35 40-60 L [facility] LakewayCholesterol/HDL Vuigw4005-38-28 06:57:00 Test Item Value Reference Range Interpretation Comments Cholesterol/HDL Ratio (test code = 6.8 3.9-4.7 H 9830-1) [facility] LakewayUrine Opiates Dexblk1043-49-27 16:18:00 Test Item Value Reference Range Interpretation Comments Urine Opiates Screen (test code = NEGATIVE NEGATIVE 11413-9) [facility] LakewayUrine Barbiturates Vyahkg6018-84-71 16:18:00 Test Item Value Reference Range Interpretation Comments Urine Barbiturates Screen (test code NEGATIVE NEGATIVE = 434724021) [facility] LakewayUrine Phencyclidine Agkuzg3446-97-37 16:18:00 Test Item Value Reference Range Interpretation Comments Urine Phencyclidine Screen (test NEGATIVE NEGATIVE code = 25298-1) [facility] LakewayUrine Amphetamines Dbmnky8783-02-76 16:18:00 Test Item Value Reference Range Interpretation Comments Urine Amphetamines Screen (test code NEGATIVE NEGATIVE = 06955-6) [facility] LakewayUrine Methamphetamines Kzfsct9006-96-69 16:18:00 Test Item Value Reference Range Interpretation Comments Urine Methamphetamines Screen (test NEGATIVE NEGATIVE code = Urine Methamphetamines Screen) [facility] LakewayUrine Benzodiazepines Hkcauo2796-32-26 16:18:00 Test Item Value Reference Range Interpretation Comments Urine Benzodiazepines Screen (test NEGATIVE NEGATIVE code = 11955-0) [facility] LakewayUrine Cocaine Qkqrta6140-12-87 16:18:00 Test Item Value Reference Range Interpretation Comments Urine Cocaine Screen (test code = NEGATIVE NEGATIVE 3398-5) [facility] LakewayUrine Cannabinoids Xdutqu8140-59-57 16:18:00 Test Item Value Reference Range Interpretation Comments Urine Cannabinoids Screen (test code NEGATIVE NEGATIVE = 77205-3) THESE RESULTS ARE FOR MEDICAL TREATMENT ONLYTHIS REPORT CONTAINS UNCONFIRMED SCREENING RESULTS*POSITIVE RESULTS WILL BE CONFIRMED BY REFERENCE LAB UPON REQUEST CUT-OFFDRUG CLASS CONCENTRATION ng/mLAmphetamines 1000Methamphetamines 1000Cocaine 300Opiate 300Phencyclidine 25Cannabinoid 50Barbiturates 300Benzodiazepine 300Methadone 300[facility] CenterUrine Methadone Rvjerb6159-15-91 16:18:00 Test Item Value Reference Range Interpretation Comments Urine Methadone Screen (test code = NEGATIVE NEGATIVE 66423-1) THESE RESULTS ARE FOR MEDICAL TREATMENT ONLYTHIS REPORT CONTAINS UNCONFIRMED SCREENING RESULTS*POSITIVE RESULTS WILL BE CONFIRMED BY REFERENCE LAB UPON REQUEST CUT-OFFDRUG CLASS CONCENTRATION ng/mLAmphetamines 1000Methamphetamines 1000Cocaine Metabolite 300Opiate 300Phencyclidine 25Cannabinoid 50Barbiturates 300Benzodiazepine 300Methadone 300[facility] LakewayProthrombin Dubp6099-30-19 14:13:00 Test Item Value Reference Range Interpretation Comments Prothrombin Time (test code = 5902-2) 13.6 11.9-14.5 [facility] LakewayProthromb Time International Eeoxz4309-52-55 14:13:00 Test Item Value Reference Range Interpretation Comments Prothromb Time International Ratio 1.13 (test code = 6301-6) Oral Anticoagulant Therapy INR Values:1. Low Intensity Therapy 1.5 - 2.02. Moderate Intensity Therapy 2.0 - 3.03. High Intensity Therapy(1) 2.5 - 3.54. High Intensity Therapy(2) 3.0 - 4.05. Panic ValueINR > 5.0[facility] LakewayActivated Partial Thromboplast Whlk9735-55-80 14:13:00 Test Item Value Reference Range Interpretation Comments Activated Partial Thromboplast Time 27.6 23.8-35.5 (test code = 42751-5) [facility] LakewayTotal Ndzasef9262-56-92 14:10:00 Test Item Value Reference Range Interpretation Comments Total Protein (test code = 2885-2) 7.3 6.5-8.1 [facility] LakewayAlbumin2018-06-04 14:10:00 Test Item Value Reference Range Interpretation Comments Albumin (test code = 1751-7) 4.0 3.5-5.0 [facility] LakewayGlobulin2018-06-04 14:10:00 Test Item Value Reference Range Interpretation Comments Globulin (test code = 20151-2) 3.3 2.3-3.5 [facility] LakewayAlbumin/Globulin Nityh8417-42-34 14:10:00 Test Item Value Reference Range Interpretation Comments Albumin/Globulin Ratio (test code = 1.2 0.8-2.0 1759-0) [facility] LakewayAlkaline Qxditvngosx7645-20-18 14:10:00 Test Item Value Reference Range Interpretation Comments Alkaline Phosphatase (test code = 109 40-150 6768-6) [facility] LakewayB-Type Natriuretic Chkxryo5961-91-04 14:10:00 Test Item Value Reference Range Interpretation Comments B-Type Natriuretic Peptide (test code = 92.8 0-100 20700-2) [facility] LakewayAmylase Nfctj1417-50-63 14:10:00 Test Item Value Reference Range Interpretation Comments Amylase Level (test code = 1798-8) 126 25-125 H [facility] LakewayLipase2018-06-04 14:10:00 Test Item Value Reference Range Interpretation Comments Lipase (test code = 3040-3) 98 8-78 H [facility] LakewayTotal Nubbcdezw2880-30-30 14:10:00 Test Item Value Reference Range Interpretation Comments Total Bilirubin (test code = 1975-2) 0.6 0.2-1.2 [facility] LakewayAspartate Amino Transf (AST/SGOT)2017-10-23 14:10:00 Test Item Value Reference Range Interpretation Comments Aspartate Amino Transf (AST/SGOT) (test 36 5-34 H code = Aspartate Amino Transf (AST/SGOT)) [facility] LakewayAlanine Aminotransferase (ALT/SGPT)2017-10-23 14:10:00 Test Item Value Reference Range Interpretation Comments Alanine Aminotransferase (ALT/SGPT) 34 0-55 (test code = 1742-6) [facility] LakewayD-Dimer Quantitative (PE/DVT)2017-10-23 14:02:00 Test Item Value Reference Range Interpretation Comments D-Dimer Quantitative (PE/DVT) (test 0.49 0.00-0.45 H code = 93540-2) [facility] LakewayDirect Mjmrbeoko2368-00-31 13:47:00 Test Item Value Reference Range Interpretation Comments Direct Bilirubin (test code = 44412-7) 0.2 0.0-5.0 [facility] LakewayMagnesium Pnzzw5179-48-22 06:52:00 Test Item Value Reference Range Interpretation Comments Magnesium Level (test code = 06499-6) 1.5 1.3-2.1 [facility] LakewayUrine PGW0253-75-78 05:09:00 Test Item Value Reference Range Interpretation Comments Urine WBC (test code = 5821-4) NONE 0-5 [facility] LakewayUrine QHQ0431-65-21 05:09:00 Test Item Value Reference Range Interpretation Comments Urine RBC (test code = 24650-8) NONE 0-5 [facility] LakewayUrine Klfbnayt3085-67-93 05:09:00 Test Item Value Reference Range Interpretation Comments Urine Bacteria (test code = 23089-7) NONE NONE [facility] LakewayUrine Epithelial Jmcfz4508-58-43 05:09:00 Test Item Value Reference Range Interpretation Comments Urine Epithelial Cells (test code = NONE NONE 30508-1) [facility] LakewayUrine Buksr2620-44-65 04:46:00 Test Item Value Reference Range Interpretation Comments Urine Color (test code = 5778-6) YELLOW YELLOW [facility] LakewayUrine Ntkuhbc4939-61-98 04:46:00 Test Item Value Reference Range Interpretation Comments Urine Clarity (test code = 90552-2) CLEAR CLEAR [facility] LakewayUrine Specific Eaqdqlo8208-45-21 04:46:00 Test Item Value Reference Range Interpretation Comments Urine Specific [place] (test code = 1.010 1.010-1.025 5811-5) [facility] LakewayUrine nZ5205-55-72 04:46:00 Test Item Value Reference Range Interpretation Comments Urine pH (test code = 57008-6) 8 5-7 H [facility] LakewayUrine Leukocyte Bhqdmikm1933-02-24 04:46:00 Test Item Value Reference Range Interpretation Comments Urine Leukocyte Esterase (test code NEGATIVE NEGATIVE = 5799-2) [facility] LakewayUrine Bnroeao3944-88-45 04:46:00 Test Item Value Reference Range Interpretation Comments Urine Nitrite (test code = 67115-4) NEGATIVE NEGATIVE [facility] LakewayUrine Odycczo5915-58-93 04:46:00 Test Item Value Reference Range Interpretation Comments Urine Protein (test code = 5804-0) NEGATIVE NEGATIVE [facility] LakewayUrine Glucose (UA)2017-03-05 04:46:00 Test Item Value Reference Range Interpretation Comments Urine Glucose (UA) (test code = NEGATIVE NEGATIVE 2349-9) [facility] LakewayUrine Eqyqyfs4931-88-87 04:46:00 Test Item Value Reference Range Interpretation Comments Urine Ketones (test code = 25837-1) NEGATIVE NEGATIVE [facility] LakewayUrine Grdxgpluwqjy7580-54-49 04:46:00 Test Item Value Reference Range Interpretation Comments Urine Urobilinogen (test code = 0.2 0.2-1 46046-2) [facility] LakewayUrine Bacvgarxm7338-40-03 04:46:00 Test Item Value Reference Range Interpretation Comments Urine Bilirubin (test code = 1978-6) NEGATIVE NEGATIVE [facility] LakewayUrine Kymtf0718-03-61 04:46:00 Test Item Value Reference Range Interpretation Comments Urine Blood (test code = 30574-2) 2+ NEGATIVE H [facility] CenterCTA BRAIN [facility] [address] [address] PatientName: FAITH VANCE MR #: [id number] : 1960 Age/Sex: 57/M Req #: [id number] Adm Physician: ALEXIS COX MD Ordered by: ALEXIS COX MD Report #: [id number] Location: [facility] Room/Bed: [place] [address] Procedure: [id number] CT/CTA BRAIN Exam Date: 10/24/17 Exam Time: [...] COPY TO: ALEXIS COX MDCT BRAIN [address] [place] [address] Patient Name: FAITH VANCE MR #: [id number] : 1960 Age/Sex: 57/M Req #: [id number] Adm Physician: Ordered by: KHAI WAHL MD Report #: [id number] Location: ER Room/Bed: _ Procedure: [id number] CT/CT BRAIN WO Exam Date: 10/23/17 Exam [...] COPY TO: KHAI WAHL V MDCTA CHEST [place] [address] PatientName: FAITH VANCE MR #: [id number] : 1960 Age/Sex: 57/M Req #: [id number] Adm Physician: Ordered by: KHAI WAHL MD Report #: [id number] Location: ER Room/Bed: __ Procedure: [id number] CT/CTA CHEST Exam Date: 10/23/17 Exam Time: [...] reviewed and is below limits set by [facility]). FINDINGS: Lines [...] 10/23/17 1621 COPY TO: KHAI WAHL V [facility] (PORTABLE) [place] [address] PatientName: FAITH VANCE MR #: [id number] : 1960 Age/Sex: 57/M Req #: [id number] Adm Physician: Ordered by: KHAI WAHL MD Report #: [id number] Location: ER Room/Bed: __ Procedure: [id number] DX/CHEST SINGLE (PORTABLE) Exam Date: 10/23/17 Exam [...] TO: KHAI WAHL V MDCT BRAIN WO [place] [address] PatientName: FAITH VANCE MR #: [id number] : 1960 Age/Sex: 56/M Req #: [id number] Adm Physician: Ordered by: JACQUELYN MONTES DE OCA MD Report #: [id number] Location: ER Room/Bed: Procedure: [id number] CT/CT BRAIN WO Exam Date: Exam Time: [...] MONTES DE OCA MDCT CERVICAL SPINE WO [place] [address] Patient Name: FAITH VANCE MR #: [id number] : 1960 Age/Sex: 56/M Req #: [id number] Adm Physician: Ordered by: JACQUELYN MONTES DE OCA MD Report #: [id number] Location: ER Room/Bed: Procedure: [id number] CT/CT CERVICAL SPINE WO Exam Date: Exam [...] 6 COPY TO: JACQUELYN MONTES DE OCA [facility] [place] [address] PatientName: FAITH VANCE MR #: [id number] : 1960 Age/Sex: 56/M Req #: [id number] Adm Physician: Ordered by: JACQUELYN MONTES DE OCA MD Report #: [id number] Location: Room/Bed: Procedure: [id number] DX/CHEST SINGLE (PORTABLE) Exam Date: 04/04/17 Exam [...] OCA MDHIP RIGHT 2-3 VW (+/- PELVIS) [place] [address] PatientName: FAITH VANCE MR #: [id number] : 1960 Age/Sex: 56/M Req #: [id number] Adm Physician: Ordered by: JACQUELYN MONTES DE OCA MD Report #: [id number] Location: ER Room/Bed: Procedure: [id number] DX/HIP RIGHT 2-3 VW (+/- PELVIS) Exam [...] Transcribed By: ANDREE on 04/04/17213 COPY TO: JACQUEYLN MONTES DE OCA MDSP LUMBAR, COMPLETE MIN 4VW [place] [address] PatientName: FAITH VANCE MR #: [id number] : 1960 Age/Sex: 56/M Req #: [id number] Adm Physician: Ordered by: JACQUELYN MONTES DE OCA MD Report #: [id number] Location: ER Room/Bed: Procedure: [id number] DX/SP LUMBAR, COMPLETE MIN 4VW Exam Date: [...] TALBOT MD 7 Transcribed By: ANDREE on 04/04/178 COPY TO: JACQUELYN MONTES DE OCA MDUS ABDOMEN COMPLETE [place] [address] PatientName: FAITH VANCE MR #: [id number] : 1960 Age/Sex: 56/M Req #: [id number] Adm Physician: NICHELLE PALACIOS MD Ordered by: SCOTT AMIN MD Report #: [id number] Location: [facility] Room/Bed: [place] [address] Procedure: [id number] US/US ABDOMEN COMPLETE Exam Date: 03/08/17 Exam [...] SAMPSON MD 39 Transcribed By: ANIBAL on 03/08/17 1040 COPY TO: SCOTT [facility] SINGLE (PORTABLE) [place] [address] PatientName: FAITH VANCE MR #: [id number] : 1960 Age/Sex: 56/M Req #: [id number] Adm Physician: Ordered by: JACQUELYN MONTES DE OCA MD Report #: [id number] Location: ER Room/Bed: Procedure: [id number] DX/CHEST SINGLE (PORTABLE) Exam Date: 03/05/17 Exam [...]
[2022-07-11] MEDS ORDERED: ONDANSETRON 4 MG/2 ML VIAL ONE (05:07)
[2022-07-11] MEDS ORDERED: MORPHINE 4 MG/ML SYR ONE (05:07)
[2022-07-11 06:07] LABS: Hematocrit 31.3 % (39.6-49.0); Lymphocytes % 20.5 % (15.3-44.8); MCV 83.4 fL (80-100); MPV 7.1 fL (7.6-11.3); RBC Red Blood Cell Count 3.75 M/uL (4.33-5.43)
[2022-07-11 06:28] LABS: Albumin 2.5 g/dL (3.4-5.0); Bilirubin Total 0.8 mg/dL (0.2-1.0); Potassium 3.8 mmol/L (3.5-5.1); Protein, Total 6.3 g/dL (6.4-8.2); Troponin High Sensitivity 25.8 pg/mL (<58.9)
[2022-07-11 08:56] LABS: Troponin High Sensitivity 31.1 pg/mL (<58.9)
--- NOTE | 2022-07-11 09:06 | RAD REPORT ---
EXAM DESCRIPTION: CT - Chest Abd Pelvis Wo Con - 07/11/2022 8:54 am CLINICAL HISTORY: Abdominal pain COMPARISON: May 2022 TECHNIQUE: Computed axial tomography of the chest, abdomen and pelvis was obtained. Oral contrast wa s given. IV contrast was not requested. All CT scans are performed using dose optimization technique as appropriate and may include automated exposure control or mA/KV adjustment according to patient size. FINDINGS: The evaluation of mediastinum, robb, vessels and solid organs is limited secondary to the lack of IV contrast administration Moderate to large left and moderate right pleural effusions without significant change. Left basilar atelectasis. Coronary arterial calcifications. No mediastinal or hilar lymphadenopathy. No pericardial effusion Liver, spleen, pancreas, adrenals and left kidney grossly normal Small right renal cyst Postsurgical changes involve the spine. No evidence of diverticulitis. Small amount of ascites. Diffuse edema within the subcutaneous tissues. Bladder wall thickening. Smal l inguinal hernias contain fat IMPRESSION: Moderate to large left and moderate right pleural effusions without significant change m oderate to large left and moderate right pleural effusions without significant change Bladder wall thickening may indicate inflammation
--- NOTE | 2022-07-11 09:13 | ER ---
Nurse's Notes [facility] Name: Ernie Rooney Age: 62 yrs Sex: Male : 1960 Arrival Date: 07/11/2022 Time: 04:47 Bed 14 Private MD: Diagnosis: Chest pain, unspecified;Pleural effusion in other conditions classified elsewhere-moderate left and right;UTI/ Urinary tract infection, site not specified;Presence of cardiac pacemaker Presentation: 07/11 04:54 Chief complaint: EMS states: Pressure CP started about an hour ago radiating to back ke1 and neck, 324 mg aspirin given in route. Coronavirus screen: Vaccine status: Patient reports receiving the 2nd dose of the covid vaccine. Ebola Screen: No symptoms or risks identified at this time. Initial Sepsis Screen: Does the patient meet any 2 criteria? No. Patient's initial sepsis screen is negative. Does the patient have a suspected source of infection? No. Patient's initial sepsis screen is negative. Risk Assessment: Do you want to hurt yourself or someone else? Patient reports no desire to harm self or others. Onset of symptoms was July 11, 2022 at 03:30. 04:54 Method Of Arrival: EMS: [facility] ke1 04:54 Acuity: TONE 3 ke1 Triage Assessment: 04:57 General: Appears uncomfortable, Behavior is appropriate for age. Pain: Complains of ke1 pain in chest Pain radiates to back and neck. Neuro: Level of Consciousness is awake, alert, Oriented to person, place, time, situation. Respiratory: Trachea Respiratory effort is even, unlabored. Musculoskeletal: Amputation of bilateral Below knee. Historical: - Allergies: 04:57 Nitroglycerin; ke1 - PMHx: 04:57 Arthritis; Back pain; CAD; CHF; CVA; Depression; Fibromyalgia; GERD; Hyperlipidemia; ke1 Hypertensive disorder; Hypothyroidism; IDDM; Left sided weakness from previous CVA; Myocardial infarction; Pacemaker; - PSHx: 04:57 bilat BKA's; bypass; CABG; ke1 - Immunization history:: Client reports receiving the 2nd dose of the Covid vaccine. - Social history:: Smoking status: Patient/guardian denies using tobacco, the patient reports quitting approximately 20 years ago. - Family history:: not pertinent. Screenin:57 [facility] ED Fall Risk Assessment (Adult) History of falling in the last 3 months, ke1 including since admission No falls in past 3 months (0 pts) Confusion or Disorientation No (0 pts) Intoxicated or Sedated No (0 pts) Impaired Gait No (0 pts) Mobility Assist Device Used No (0 pt) Altered Elimination No (0 pt) Score/Fall Risk Level 0 - 2 = Low Risk. Abuse screen: Denies threats or abuse. Nutritional screening: No deficits noted. Tuberculosis screening: No symptoms or risk factors identified. Assessment: 04:59 Reassessment: see triage. ke1 05:34 Reassessment: Patient is resting quietly in bed eyes closed Patient states feeling ke1 better. Patient states symptoms have improved. 09:15 Reassessment: received report from SHEBA Almaraz. mb9 09:27 Reassessment: Patient states feeling better. Patient states symptoms have improved. mb9 General: Appears in no apparent distress. comfortable. Pain: Denies pain. Neuro: Level of Consciousness is awake, alert, obeys commands, Oriented to person, place, time, situation, Appropriate for age. Cardiovascular: Rhythm is ventricular pacer. Respiratory: Airway is patent Respiratory effort is even, unlabored, Respiratory pattern is regular, symmetrical. Derm: Skin is pink, warm \T\ dry. 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 10:07 Reassessment: Gave report to [facility]. mb9 Vital Signs: 04:54 BP 158 / 93; Pulse 85; Resp 21; Temp 97.9; Pulse Ox 95% on R/A; Weight 68.04 kg; Height ke1 5 ft. 7 in. (170.18 cm); Pain 9/10; 05:32 Pain 0/10; ke1 06:34 BP 129 / 74; Pulse 83; Resp 16; Pulse Ox 98% on R/A; Pain 0/10; ke1 09:12 BP 123 / 71; Pulse 84; Resp 15; Pulse Ox 95% ; Pain 8/10; jl7 09:25 BP 145 / 87; Pulse 90; Resp 16; Pulse Ox 99% on R/A; mb9 04:54 Body Mass Index 23.49 (68.04 kg, 170.18 cm) ke1 ED Course: 04:47 Patient arrived in ED. as6 04:49 Cade Dye MD is Attending Physician. rt 04:54 Ebrottie, Kouassi, RN is Primary Nurse. ke1 04:57 Triage completed. ke1 04:59 Arm band placed on left wrist. ke1 04:59 Bed in low position. Call light in reach. Side rails up X 1. ke1 05:10 Maintain EMS IV. Site clean \T\ dry. Gauge \T\ site: 20 g lac. ke 1 05:11 CMP Sent. ke1 05:11 CBC with Diff Sent. ke1 05:11 Troponin High Sensitivity Sent. ke1 05:30 Inserted saline lock: 20 gauge in right forearm, using aseptic technique. ke1 07:12 Attending Physician role handed off by Cade Dye MD caitlyn 07:12 Mustapha Cole MD is Attending Physician. caitlyn 08:31 Repeat lab(s) drawn. by az, sent to lab. jl7 09:11 Kavin Keenan MD is Referral Physician. caitlyn 09:11 Mike Bernabe MD is Referral Physician. caitlyn 09:28 No provider procedures requiring assistance completed. IV discontinued, intact, mb9 bleeding controlled, No redness/swelling at site. Pressure dressing applied. Administered Medications: 05:11 Drug: morphine 4 mg Route: IVP; Infused Over: 4 mins; Site: left antecubital; ke1 05:32 Follow up: Pain 0/10 Adult; Response: Pain is decreased; resting quietly in bed eyes ke1 closed 05:11 Drug: Zofran (Ondansetron) 4 mg Route: IVP; Site: left antecubital; ke1 05:32 Follow up: Response: No adverse reaction ke1 09:15 Drug: Rocephin (cefTRIAXone) 1 grams Route: IV; Rate: per protocol; Site: right wrist; mb9 10:07 Follow up: Response: No adverse reaction; IV Status: Completed infusion mb9 09:25 Drug: Lopressor (metoprolol TARTRATE)) 25 mg Route: PO; mb9 09:26 Drug: Aspirin Chewable Tablet 162 mg Route: PO; mb9 09:26 Drug: Cipro (ciprofloxacin) 500 mg Route: PO; mb9 10:06 Follow up: Response: No adverse reaction mb9 09:26 Drug: Lasix (furosemide) 20 mg Route: IVP; Site: right wrist; mb9 10:06 Follow up: Response: No adverse reaction mb9 Intake: Outcome: 09:13 Discharge ordered by . caitlyn 09:28 Discharged to home via ambulance. mb9 09:28 Condition: stable 09:28 Discharge instructions given to patient, Instructed on discharge instructions, follow up and referral plans. Demonstrated understanding of instructions, follow-up care, medications, Prescriptions given X 3. 10:13 Patient left the ED. mb9 Signatures: Mustapha Cole MD MD cha Leal, Jahala RN RN jl7 Enoc Sahu RN RN as6 Erna Jha RN RN ke1 Sondar Zheng RN RN mb9 Cade Dye MD MD rt
--- NOTE | 2022-07-11 09:13 | EDPHYS ---
Physician Documentation [facility] Name: Ernie Rooney Age: 62 yrs Sex: Male : 1960 Arrival Date: 07/11/2022 Time: 04:47 Bed 14 Private MD: ED Physician Mustapha Cole HPI: 07/11 05:06 This 62 yrs old Male presents to ER via EMS with complaints of Chest pain. rt 05:06 The patient or guardian reports chest pain that is located primarily in the substernal rt area. Onset: 1 hour(s) ago. The pain does not radiate. Associated signs and symptoms: The patient has no apparent associated signs or symptoms. The chest pain is described as aching. Duration: The patient or guardian reports a single episode, that is still ongoing. Modifying factors: The symptoms are alleviated by nothing. the symptoms are aggravated by nothing. Severity of pain: At its worst the pain was moderate. The patient has experienced similar episodes in the past. The patient has been recently seen at the [facility] Emergency Department, this week. Historical: - Allergies: 04:57 Nitroglycerin; ke1 - PMHx: 04:57 Arthritis; Back pain; CAD; CHF; CVA; Depression; Fibromyalgia; GERD; Hyperlipidemia; ke1 Hypertensive disorder; Hypothyroidism; IDDM; Left sided weakness from previous CVA; Myocardial infarction; Pacemaker; - PSHx: 04:57 bilat BKA's; bypass; CABG; ke1 - Immunization history:: Client reports receiving the 2nd dose of the Covid vaccine. - Social history:: Smoking status: Patient/guardian denies using tobacco, the patient reports quitting approximately 20 years ago. - Family history:: not pertinent. ROS: 05:06 Constitutional: Negative for fever, chills, and weight loss, ENT: Negative for injury, rt pain, and discharge, Respiratory: Negative for shortness of breath, cough, wheezing, and pleuritic chest pain, Abdomen/GI: Negative for abdominal pain, nausea, vomiting, diarrhea, and constipation, MS/Extremity: Negative for injury and deformity, Skin: Negative for injury, rash, and discoloration, Neuro: Negative for headache, weakness, numbness, tingling, and seizure, Psych: Negative for depression, anxiety, suicide ideation, homicidal ideation, and hallucinations. 05:06 Cardiovascular: Positive for chest pain, Negative for edema. Exam: 05:06 Constitutional: This is a well developed, well nourished patient who is awake, alert, rt and in no acute distress. Head/Face: Normocephalic, atraumatic. Neck: Trachea midline, no thyromegaly or masses palpated, and no cervical lymphadenopathy. Supple, full range of motion without nuchal rigidity, or vertebral point tenderness. No Meningismus. Chest/axilla: Normal chest wall appearance and motion. Nontender with no deformity. No lesions are appreciated. Cardiovascular: Regular rate and rhythm with a normal S1 and S2. No gallops, murmurs, or rubs. Normal PMI, no JVD. No pulse deficits. Respiratory: Lungs have equal breath sounds bilaterally, clear to auscultation and percussion. No rales, rhonchi or wheezes noted. No increased work of breathing, no retractions or nasal flaring. Abdomen/GI: Soft, non-tender, with normal bowel sounds. No distension or tympany. No guarding or rebound. No evidence of tenderness throughout. Skin: Warm, dry with normal turgor. Normal color with no rashes, no lesions, and no evidence of cellulitis. Neuro: Awake and alert, GCS 15, oriented to person, place, time, and situation. Cranial nerves II-XII grossly intact. Motor strength 5/5 in all extremities. Sensory grossly intact. Cerebellar exam normal. Normal gait. Psych: Awake, alert, with orientation to person, place and time. Behavior, mood, and affect are within normal limits. 05:06 ECG was reviewed by the Attending Physician. 05:06 Musculoskeletal/extremity: Bilateral below the knee amputations. Vital Signs: 04:54 BP 158 / 93; Pulse 85; Resp 21; Temp 97.9; Pulse Ox 95% on R/A; Weight 68.04 kg; Height ke1 5 ft. 7 in. (170.18 cm); Pain 9/10; 05:32 Pain 0/10; ke1 06:34 BP 129 / 74; Pulse 83; Resp 16; Pulse Ox 98% on R/A; Pain 0/10; ke1 09:12 BP 123 / 71; Pulse 84; Resp 15; Pulse Ox 95% ; Pain 8/10; jl7 09:25 BP 145 / 87; Pulse 90; Resp 16; Pulse Ox 99% on R/A; mb9 04:54 Body Mass Index 23.49 (68.04 kg, 170.18 cm) ke1 MDM: 04:55 Patient medically screened. rt 08:56 Differential diagnosis: abnormal EKG, acute myocardial infarction, acute pericarditis, caitlyn anxiety, chest wall pain, Cholelithiasis esophagitis, gastroesophageal reflux disease (GERD), hiatal hernia, pancreatitis, peptic ulcer disease, pleurisy, pneumonia, pneumothorax, stable angina, unstable angina. HEART Score: History: Moderately Suspicious (1), ECG: Non specific repolarization disturbance / LBTB / PM (1), Age: > 45 and < 65 years (1). The patient was given aspirin in the Emergency Department. TARA Risk Score: 1 - Three or more CAD risk factors, 1- Known CAD, 1 - ASA use in past 7 days, 1 - Recent [<24hrs] Severe Angina, TOTAL SCORE = 4. Data reviewed: vital signs, nurses notes, lab test result(s), EKG, radiologic studies, CT scan, plain films. Consideration of Admission/Observation Patient was admitted/placed on observation. Escalation of care including admission/observation considered. Test considered but Not performed: MRI: mri chest. 07/11 04:59 Order name: CBC with Diff rt 07/11 04:59 Order name: CMP rt 07/11 04:59 Order name: Troponin High Sensitivity rt 07/11 06:16 Order name: CBC with Automated Diff; Complete Time: 06:27 EDMS 07/11 06:28 Order name: Comprehensive Metabolic Panel; Complete Time: 06:48 EDMS 07/11 06:28 Order name: Troponin High Sensitivity; Complete Time: 06:48 EDMS 07/11 04:59 Order name: Chest Single View XRAY rt 07/11 08:19 Order name: Troponin HS: now caitlyn 07/11 08:19 Order name: Lipase 07/11 08:19 Order name: CT Chest Abdomen Pelvis W/O Contrast caitlyn 07/11 08:56 Order name: Troponin High Sensitivity; Complete Time: 08:58 EDMS 07/11 08:56 Order name: Lipase; Complete Time: 08:58 EDVT 07/11 09:06 Order name: CT; Complete Time: 09:09 EDVT 07/11 09:09 Order name: Urine Culture [facility] 07/11 05:27 Order name: Labs - recollect needed: all labs needed; Complete Time: 05:59 mw2 07/11 09:09 Order name: Urine Dipstick-Ancillary (obtain specimen) [facility] EC:06 Rate is 86 beats/min. Rhythm is regular, Paced with No ectopy, Left bundle branch block rt with ST and T waves consistent with ventricular paced rhythm. Left axis deviation noted. No Q waves. Interpreted by me. Administered Medications: 05:11 Drug: morphine 4 mg Route: IVP; Infused Over: 4 mins; Site: left antecubital; ke1 05:32 Follow up: Pain 0/10 Adult; Response: Pain is decreased; resting quietly in bed eyes ke1 closed 05:11 Drug: Zofran (Ondansetron) 4 mg Route: IVP; Site: left antecubital; ke1 05:32 Follow up: Response: No adverse reaction ke1 09:15 Drug: Rocephin (cefTRIAXone) 1 grams Route: IV; Rate: per protocol; Site: right wrist; mb9 10:07 Follow up: Response: No adverse reaction; IV Status: Completed infusion mb9 09:25 Drug: Lopressor (metoprolol TARTRATE)) 25 mg Route: PO; mb9 09:26 Drug: Aspirin Chewable Tablet 162 mg Route: PO; mb9 09:26 Drug: Cipro (ciprofloxacin) 500 mg Route: PO; mb9 10:06 Follow up: Response: No adverse reaction mb9 09:26 Drug: Lasix (furosemide) 20 mg Route: IVP; Site: right wrist; mb9 10:06 Follow up: Response: No adverse reaction mb9 Disposition Summary: 07/11/22 09:13 Discharge Ordered Location: Home caitlyn Problem: new caitlyn Symptoms: have improved caitlyn Condition: Fair caitlyn Diagnosis - Chest pain, unspecified caitlyn - Pleural effusion in other conditions classified elsewhere - moderate left and right caitlyn - UTI/ Urinary tract infection, site not specified caitlyn - Presence of cardiac pacemaker caitlyn Followup: caitlyn - With: Private Physician - When: 1 - 2 days - Reason: Recheck today's complaints, Continuance of care, Re-evaluation by your physician Followup: caitlyn - With: Kavin Keenan MD - When: 2 - 3 days - Reason: Recheck today's complaints, Re-evaluation by your physician Followup: caitlyn - With: iMke Bernabe MD - When: 2 - 3 days - Reason: Recheck today's complaints, Re-evaluation by your physician Discharge Instructions: - Discharge Summary Sheet caitlyn - Nonspecific Chest Pain, Adult caitlyn - Dysuria caitlyn - Pleural Effusion caitlyn - Urinary Tract Infection, Adult caitlyn - Urinary Tract Infection, Adult, [id number] caitlyn - Nonspecific Chest Pain, Adult, Qmug-ke-[id number] caitlyn - Aspirin and Your Heart [facility] Forms: - Medication Reconciliation Form [facility] - Thank You Letter [facility] - Antibiotic Education [facility] - Prescription Opioid Use [facility] Prescriptions: - Lopressor 50 mg Oral Tablet - take 1 tablet by ORAL route every 12 hours; 30 tablet; Refills: 0, Product [facility] Selection Permitted - Lasix 20 mg Oral Tablet - take 1 tablet by ORAL route every 12 hours; 40 tablet; Refills: 0, Product [facility] Selection Permitted - Potassium Chloride 20 meq Oral Packet - take 1 packet by ORAL route once daily 1 packet in 6 (six) ounces of water or caitlyn juice; Take after meal; 20 packet; Refills: 0, Product Selection Permitted Signatures: Dispatcher [employer] Mustapha Arredondo MD MD cha Gatti, MyKena mw2 Erna hJa RN RN ke1 Sondra Zheng RN RN mb9 Cade Dye MD MD rt
[2022-07-11] MEDS ORDERED: CIPROFLOXACIN HCL 500 MG TAB ONE (09:22)
[2022-07-11] MEDS ORDERED: CEFTRIAXONE 1000 MG/VIAL ONE (09:22)
[2022-07-11] MEDS ORDERED: ASPIRIN 81 MG CHEWABLE TABLET ONE (09:22)
[2022-07-11] MEDS ORDERED: METOPROLOL TAR 25 MG TAB ONE (09:22)
[2022-07-11] MEDS ORDERED: FUROSEMIDE 20 MG/ 2ML VIAL ONE (09:24)
[2022-07-11 11:20] VITALS: BP 145/87; O2SAT 99
--- NOTE | 2022-07-11 12:35 | EKG ---
Test Date: 2022-07-11 Test Time: 04:49:33 [employer] Consultant: YASH MEASUREMENT RESULTS: Intervals: Rate: 86 MA: 184 QRSD: 176 QT: 446 QTc: 533 Friedens: P: 62 MA: 184 QRS: -38 T: 127 INTERPRETIVE STATEMENTS: Electronic ventricular pacemaker Compared to ECG 07/08/2022 06:37:03 No significant changes Electronically Signed On 07-11-22 12:34:37 LABORATORY TESTER by Kavin Keenan
--- NOTE | 2022-07-11 14:36 | RAD REPORT ---
EXAM DESCRIPTION: RAD - Chest Single View - 07/11/2022 5:19 am CLINICAL HISTORY: The patient is 62 years old and is Male; CHEST PAIN [facility] MAIN TECHNIQUE: Frontal view of the chest. COMPARISON: 07/05/2022 chest radiograph FINDINGS: LUNGS: See below. PLEURAL SPACE: Stable appearance of suspected bilateral pleural effusions and expiratory lung volu mes. No new focal consolidation. HEART: Stable cardiomegaly mediastinal silhouette. MEDIASTINUM: See above. BONES/JOINTS: Median sternotomy. TUBES, LINES AND DEVICES: Cardiac stimulator device redemonstrated over the left chest with leads terminating over the right atria and right ventricle. IMPRESSION: Stable appearance of the chest. Electronically signed by: Paul Winter MD 07/11/2022 5:36 AM SHINGLE GRADER Due to temporary technical issues with the PACS/Fluency reporting system, reports are being signed by the in house radiologists without review as a courtesy to insure prompt reporting. The interpreting radiologist is fully responsible for the content of the report.
== END 2022-07-11 10:13 | disposition home or self-care (01) ==
LOC: ER 04:41
DX: R07.89 Other chest pain (principal); J91.8 Pleural effusion in other conditions classified elsewhere; N39.0 Urinary tract infection, site not specified; Z95.0 Presence of cardiac pacemaker; Z95.1 Presence of aortocoronary bypass graft; Z89.511 Acquired absence of right leg below knee; Z89.512 Acquired absence of left leg below knee; I10 Essential (primary) hypertension; Z86.73 Personal history of transient ischemic attack (TIA), and cerebral infarction without residual deficits; Z88.8 Allergy status to other drugs, medicaments and biological substances
CPT/HCPCS: 93005; 85025; 36415; 84484 ×2; 83690; 80053; 71250; 74176; 71045; 99284; J1940; J2405

== ENCOUNTER 2022-07-14 17:17 | Emergency (ER) | payer OTHER ==
--- OUTSIDE RECORDS SUMMARY | 2022-07-14 17:25 | XMS REPORT | Continuity of Care Document ---
:[address] [facility] t Address [address] [place] [address] Care Team Providers Name Role Phone MONIKA HALL MD Primary Care Physician [id number] Attending Clinician Unavailable Harshal Zhu Attending Clinician Unavailable Finn Shah Attending Clinician Unavailable Doctor Unassigned, Captree Attending Clinician Unavailable Josselyn Harding RN Attending [...] Attending Clinician Alis Garcia MD Attending Clinician [phone] Kaylyn Calvin MD Attending Clinician Tha Gunter [...] Unavailable Casper RAE, Michael Gaxiola Attending Clinician [phone] Nova RAE, Cortney Law Attending Clinician [phone] Emy SCRUGGS, Rhonda Attending Clinician Dennis Finley MD Attending Clinician Carlos Allen MD Attending Clinician ALEXIS COX Attending Clinician Unavailable JACQUELYN MONTES DE OCA Attending Clinician Unavailable NICHELLE PALACIOS Attending Clinician Unavailable [id number] Admitting Clinician Unavailable Nika Martin Admitting Clinician [...] Admitting Clinician Unavailable Michael Hernandez Admitting Clinician [phone] Malia HALL Dennis Arreola Admitting Clinician ALEXIS COX Admitting Clinician Unavailable NICHELLE PALACIOS Admitting Clinician Unavailable Payers Payer Name Policy Type Policy Number Effective Date Expiration Date Sujit daugherty [facility] [id number] PHARMAJET [id number] 2018spring 00:00:00 [employer] [id number] 2004 [facility] Patient [...] Added automatic ally from request for surgery [id number] Troponin I Troponin I Disease Active 2020-0 [...] 00:00: [place] involving involving 00 Medi uriel [place] 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 Type 2 Type 2 Disease Active 2019 Univers diabetes diabetes 8-29 ity of mellitus mellitus 00:00: [place] without without 00 Medical complicati complicati Br anch on, on, without without long-term long-term current current use of use of insulin insulin Essential Essential Disease Active Uni vers hypertensi hypertensi 01-17 it y of on on 00:00: [place] [address] Medical Branch Other Other Disease Active Univers hyperlipid hyperlipid 01-17 it y of emia emia 00:00: [place] [address] Medical Branch Stroke Stroke Disease Active Univers [...] chest pain 2-22 it y of 00:00: [place] [address] Medical Branch Chest pain Chest pain Problem [facility] Coronary CAD Problem Active [facility] artery (coronary [facility] disease artery Patient disease) [facility] Diabetic DKA Problem Active [facility] ketoacidos (diabetic Esme es is ketoacidos Patien t es) [facility] Hyperglyce Hyperglyce Problem Active [facility] bambi bambi [facility] Hypertensi Hypertensi Problem Active [facility] on on [facility] Pancreatit Pancreatit Problem Active [facility] is is [facility] Uncontroll Uncontroll Problem Active [facility] diabetes diabetes Patien t mellitus mellitus [facility] Allergies, Adverse Reactions, Alerts Allergy Allergy Status Severity Reaction(s) Onset Inactive Treating Comm ents Source Name Type Date Date Clinician No Known DA Active U [facility]22 [place] 00:[facility]: d 00 [facility] No Known DA Active U [facility] Allergie 3- [place] 00:00: d 00 [facility] No Known DA Active U 2017-05 [facility] Allergie 2-31 [facility] s 00:00: [place] 00 [facility] No Known DA Active U 2017-05 [facility] Allergie 2-31 Clear s 00:00: [place] 00 [facility] No Known DA Active U [facility] Allergie 3- [place] 00:00: e 00 [facility] NO KNOWN Drug Active Univers ALLERGIE [...] 2022-02-09 1.71 /d University of 00:00:00 00:00:00 [facility] Tobacco Comment 2022-02-09 2022-02-09 quit 15 years ago Un iversity of 00:00:00 00:00:00 [facility] Education 2021-10-27 2021-10-27 9 University of 00:00:00 00:00:00 [facility] History SDOH 2020-03-16 2020-03-16 3 University o f Financial 00:00:00 00:00:00 [facility] Alcohol Comment 2019-07-18 2019-07-18 quit drinking Univvish sitvashti of 00:00:00 00:00:00 2013 but drank [facility] heavily before Branch this Sex Ass[birth year] At [birth year] LUCY Sanders 00:00:00 00:00:00 [facility] Smoking Status Start Date Stop Date Source Ex-smoker 2022-02-09 00:00:00 2022-02-09 00:00:00 [facility] ty of [facility] Medications Ordered Filled Start Stop Current Ordering Indication Dosage Frequency Signature Comments Components Source Medication Medication Date Date Medication? Clinician (SIG) Name Name aspirin 81 2021- No [id number] 81mg Take 1 Univers mg chewable 9-23 10-24 tablet by it y of tablet 00:00: 04:59 mouth [place] 00 :00 daily with Medical breakfast Branch for 30 days. glipiZIDE 5 2021- No [id number] 5mg Take 1 Univers mg tablet 9-23 10-24 tablet by ity of 00:00: 04:59 mouth in [place] 00 :00 the Medical morning Branch for 30 days. levothyroxi 2021- No [id number] 50ug Take 1 Univers ne 50 mcg 9-23 10-24 tablet by ity of tablet 00:00: 04:59 mouth [place] 00 :00 every Medical morning Branch for 30 days. lisinopriL 2021- No [id number] 2.5mg Take 1 Univers 2.5 mg 9-23 10-24 tablet by ity of tablet 00:00: 04:59 mouth in [place] 00 :00 the Medical morning Branch for 30 days. spironolact 2021- No [id number] 25mg Take 1 Univers one 25 mg 9-23 10-24 tablet by ity of tablet 00:00: 04:59 mouth in [place] 00 :00 the Medical morning [place] for 30 days. tamsulosin 2021- No [id number] .4mg Take 1 Univers 0.4 mg 24 9-23 10-24 capsule by ity of hr capsule 00:00: 04:59 mouth in [facility] 00 :00 the Medical morning Branch for 30 days. aspirin 81 2021-2021- No [id number] 81mg Take 1 Univers mg chewable 9-23 10-24 tablet by it y of tablet 00:00: 04:59 mouth [place] 00 :00 daily with [facility] breakfast Branch for 30 days. glipiZIDE 5 2021- No [id number] 5mg Take 1 Univers mg tablet 9- 10-24 tablet by ity of 00:00: 04:59 mouth in [place] 00 :00 the [facility] morning [place] for 30 days. levothyroxi 2021- No [id number] 50ug Take 1 Univers ne 50 mcg 9-23 10-24 tablet by ity of tablet 00:00: 04:59 mouth [place] 00 :00 every [facility] morning [place] for 30 days. lisinopriL 2021- No [id number] 2.5mg Take 1 Univers 2.5 mg 9-23 10-24 tablet by ity of tablet 00:00: 04:59 mouth in [place] 00 :00 the [facility] for 30 days. spironolact 2021- No [id number] 25mg Take 1 Univers one 25 mg 9-23 10-24 tablet by ity of tablet 00:00: 04:59 mouth in [place] 00 :00 the [facility] for 30 days. tamsulosin 2021- No [id number] .4mg Take 1 Univers 0.4 mg 24 9-23 10-24 capsule by ity of hr capsule 00:00: 04:59 mouth in [facility] 00 :00 the [facility] morning [place] for 30 days. sulfur 2021- No [id number] 5mL 5 mL, Unive rs hexafluorid 02-10 [...] Q6HPRN, [place] mg 57 Starting Medical on [facility] Branch 02/10/22 at 1010, Until Discontinu ed, Routine, Pain (scale 7-10) lisinopriL 0 Yes 2.5mg 2.5 mg, Uni vers (PRINIVIL,Z 02-10 Oral, ity of ESTRIL) 14:00: DAILY, [place] tablet 2.5 00 First dose Med ical mg on [facility] Branch 02/10/22 at 0900, Until Discontinu ed, Routine glipiZIDE 0 Yes 5mg 5 mg, Univers (GLUCOTROL) 02-10 Oral, ity of tablet 5 mg 14:00: DAILY, [place] 00 First dose Medical on [facility] Branch 02/10/22 at 0900, Until Discontinu ed, Routine enoxaparin 0 Yes 30mg 30 mg, Unive rs (LOVENOX) 02-10 Subcutaneo ity of injection 14:00: [place], DAILY, [place] 30 mg 00 First dose Medical on [facility] Branch 02/10/22 at 0900, Until Discontinu ed, Routine levothyroxi Yes 50ug 50 mcg, Uni vers ne 02-10 Oral, ity of (SYNTHROID) 11:00: QAM-0600, [place] tablet 50 00 First dose Medi uriel mcg on [facility] Branch 02/10/22 at 0600, Until Discontinu ed, Routine morpHINE (2 2021- No 2mg 2 mg, Slow Univers mg/mL) 02-10 IV Push, ity of injection 2 08:45: 08:01 ONCE, 1 [place] mg 00 :00 dose, On [facility] 02/10/22 at 0345, Routine furosemide 0 [...] dose [place] mg 00 on Mon [facility] 02/09/22 at Branch 2315, Until Discontinu [...] First dose Med ical 12.5 mg on [facility] 02/09/22 at 2315, Until Discontinu ed, Routine tamsulosin 2021-0 Yes .4mg 0.4 mg, Univ ers (FLOMAX) 02-10 Oral, ity of capsule 0.4 04:15: DAILY, [place] mg 00 First dose Medical on [facility] Branch 02/09/22 at 2315, Until Discontinu ed, Routine gabapentin 2021-0 Yes 300mg 300 mg, Uni vers (NEURONTIN) 02-10 Oral, BID, it y of capsule 300 04:15: First dose [place] mg 00 on Mon [facility] 02/09/22 at Branch 2315, Until Discontinu ed, Routine sennosides 2021-0 Yes 8.6mg 8.6 mg, Uni vers (SENOKOT) 02-10 Oral, BID, ity of tablet 8.6 04:15: First dose [place] mg 00 on Mon [facility] 02/09/22 at Branch 2315, Until Discontinu ed, Routine docusate 2021-0 Yes 100mg 100 mg, Unive rs (COLACE) 02-10 Oral, BID, ity o f capsule 100 04:15: First dose [place] mg 00 on Mon [facility] 02/09/22 at Branch 2315, Until Discontinu [...] has mental status changes. atorvastati 2021- No [id number] 40mg Take 1 Univers n 40 mg - 10-23 tablet by ity of tablet 00:00: 04:59 mouth at [place] 00 :00 bedtime Medical for 30 Branch days. metoprolol 2021- No [id number] 12.5mg Take 0.5 Univers succinate 9- 10-23 tablets by ity of XL 25 mg 24 00:00: 04:59 mouth in [place] hr tablet 00 :00 the Medical morning Branch for 30 days. atorvastati 2021- No [id number] 40mg Take 1 Univers n 40 mg -22 10-23 tablet by ity of tablet 00:00: 04:59 mouth at [place] 00 :00 bedtime Medical for 30 Branch days. metoprolol 2021- No [id number] 12.5mg Take 0.5 Univers succinate 02-1023 tablets [...] at 0215, 1 mL gabapentin 2021- No [id number] 300mg Take 1 Univers 300 mg 11-05 capsule by ity of capsule 00:00: 04:59 mouth 3 [place] 00 :00 (three) Medical times Branch daily for 10 days. gabapentin 2021- No [id number] 300mg Take 1 Univers 300 mg 11-05 capsule by ity of capsule 00:00: 04:59 mouth 3 [place] 00 :00 (three) Medical times Branch daily for 10 days. aspirin 81 2021- No [id number] 81mg Take 1 Univers mg chewable 6-16 07-17 tablet by it y of tablet 00:00: 04:59 mouth [place] 00 :00 daily for Medical 30 days. [place] aspirin 81 2021- No [id number] 81mg Take 1 Univers mg chewable 6-16 07-17 tablet by it y of tablet 00:00: 04:59 mouth [place] 00 :00 daily for Medical 30 days. Branch aspirin 81 2021- No [id number] 81mg Take 1 Univers mg chewable 6-16 07-17 tablet by it y of tablet 00:00: 04:59 mouth [place] 00 :00 daily for Medical 30 days. [place] proMETHazin Yes [id number] 25mg Take 1 Univers e 25 mg 6-03 tablet by ity of tablet 00:00: mouth [place] 00 every 6 Medical (six) Branch hours as needed for Nausea and Vomiting (N/V). proMETHazin Yes [id number] 25mg Take 1 Univers e 25 mg 6-03 tablet by ity of tablet 00:00: mouth [place] 00 every 6 Medical (six) Branch hours as needed for Nausea and Vomiting (N/V). proMETHazin 2021-0 Yes [id number] 25mg Take 1 Univers e 25 mg 6-03 tablet by ity of tablet 00:00: mouth [place] 00 every 6 Medical (six) Branch hours as needed for Nausea and Vomiting (N/V). proMETHazin 2021-0 Yes [id number] 25mg Take 1 Univers e 25 mg 6-03 tablet by ity of tablet 00:00: mouth [place] 00 every 6 Medical (six) Branch hours as needed for Nausea and Vomiting (N/V). proMETHazin 2021-0 Yes [id number] 25mg Take 1 Univers e 25 mg 6-03 tablet by ity of tablet 00:00: mouth [place] 00 every 6 Medical (six) Branch hours as needed for Nausea and Vomiting (N/V). proMETHazin 2021-0 Yes [id number] 25mg Take 1 Univers e 25 mg 6-03 tablet by ity of tablet 00:00: mouth [place] 00 every 6 Medical (six) Branch hours as needed for Nausea and Vomiting (N/V). fenofibrate 2021- No [id number] 134mg Take 1 Univers micronized -19 12- capsule by it y of 134 mg 00:00: 04:59 mouth [place] capsule 00 :00 daily for Medical 30 days. Branch lisinopriL 2021- No [id number] 2.5mg Take 1 Univers 2.5 mg -19 12- tablet by ity of tablet 00:00: 04:59 mouth [place] 00 :00 daily for Medical 30 days. Branch fenofibrate 2021- No [id number] 134mg Take 1 Univers micronized 5-19 12- capsule by it y of 134 mg 00:00: 04:59 mouth [place] capsule 00 :00 daily for Medical 30 days. Branch lisinopriL 2021- No [id number] 2.5mg Take 1 Univers 2.5 mg 5-19 12- tablet by ity of tablet 00:00: 04:59 mouth [place] 00 :00 daily for Medical 30 days. Branch fenofibrate 2021-2021- No [id number] 134mg Take 1 Univers micronized -19 12- capsule by it y of 134 mg 00:00: 04:59 mouth [place] capsule 00 :00 daily for Medical 30 days. Branch lisinopriL 2021- No [id number] 2.5mg Take 1 Univers 2.5 mg -31 - tablet by ity of tablet 00:00: 04:59 mouth [place] 00 :00 daily for Medical 30 days. Branch furosemide 2021- No [id number] 40mg Take 1 Univers 40 mg 5-30 [...] s: atrial fibrillati on calcitrioL 2021- No [id number] .5ug Take 1 Univers 0.5 mcg -30 -30 capsule by ity o f capsule 00:00: 04:59 mouth [place] 00 :00 daily for Medical 30 days. [place] insulin NPH 2021- No [id number] 5U inject 5 Univers (HUMULIN N 5-30 06-30 Units ity of NPH U-100 00:00: 04:59 under the [place] INSULIN) 00 :00 skin every Medic al 100 unit/mL evening Branc h injection for 30 days. atorvastati 2021- No [id number] 40mg Take 1 Univers n 40 mg 5-30 -30 tablet by ity of tablet 00:00: 04:59 mouth at [place] 00 :00 bedtime Medical for 30 Branch days. carvediloL 2021- No [id number] 3.125mg Take 1 Univers 3.125 mg 5-30 06-30 tablet by ity o f tablet 00:00: 04:59 mouth 2 [place] 00 :00 (two) Medical times Branch daily with meals for 30 days. furosemide 2021- No [id number] 40mg Take 1 Univers 40 mg 5-30 [...] s: atrial fibrillati on calcitrioL 2021- No [id number] .5ug Take 1 Univers 0.5 mcg 5-30 06-30 capsule by ity o f capsule 00:00: 04:59 mouth [place] 00 :00 daily for Medical 30 days. Branch insulin NPH 2021- No [id number] 5U inject 5 Univers (HUMULIN N 5-30 06-30 Units ity of NPH U-100 00:00: 04:59 under the [place] INSULIN) 00 :00 skin every Medic al 100 unit/mL evening Branc h injection for 30 days. atorvastati 2021- No [id number] 40mg Take 1 Univers n 40 mg 5-30 06-30 tablet by ity of tablet 00:00: 04:59 mouth at [place] 00 :00 bedtime Medical for 30 Branch days. carvediloL 2021- No [id number] 3.125mg Take 1 Univers 3.125 mg 5-30 06-30 tablet by ity o f tablet 00:00: 04:59 mouth 2 [place] 00 :00 (two) Medical times Branch daily with meals for 30 days. furosemide 2021- No [id number] 40mg Take 1 Univers 40 mg 5-30 [...] s: atrial fibrillati on calcitrioL 2021- No [id number] .5ug Take 1 Univers 0.5 mcg 5-30 06-30 capsule by ity o f capsule 00:00: 04:59 mouth [place] 00 :00 daily for Medical 30 days. Branch insulin NPH 2021- No [id number] 5U inject 5 Univers (HUMULIN N 5-30 06-30 Units ity of NPH U-100 00:00: 04:59 [place] the [place] INSULIN) 00 :00 skin every Medic al 100 unit/mL evening Branc h injection for 30 days. atorvastati 2021- No [id number] 40mg Take 1 Univers n 40 mg 5-30 06-30 tablet by ity of tablet 00:00: 04:59 mouth at [place] 00 :00 bedtime Medical for 30 Branch days. carvediloL 2021- No [id number] 3.125mg Take 1 Univers 3.125 mg 5-30 -30 tablet by ity o f tablet 00:00: 04:59 mouth 2 [place] 00 :00 (two) Medical times Branch daily with meals for 30 days. metFORMIN Yes [id number] 500mg Take 1 U nivers 500 mg 3-02 tablet by ity of tablet 00:00: mouth [address] [place] [address] ([facility]) Medical times Branch daily with meals. metFORMIN Yes [id number] 500mg Take 1 U nivers 500 mg 3-02 tablet by ity of tablet 00:00: mouth [place] ([facility]) Medical times Branch daily with meals. metFORMIN Yes [id number] 500mg Take 1 U nivers 500 mg 3-02 tablet by ity of tablet 00:00: mouth [place] ([facility]) Medical times Branch daily with meals. metFORMIN Yes [id number] 500mg Take 1 U nivers 500 mg 3-02 tablet by ity of tablet 00:00: mouth [place] ([facility]) Medical times Branch daily with meals. metFORMIN Yes [id number] 500mg Take 1 U nivers 500 mg 3-02 tablet by ity of tablet 00:00: mouth [place] ([facility]) Medical times Branch daily with meals. metFORMIN Yes [id number] 500mg Take 1 U nivers 500 mg 3-02 tablet by ity of tablet 00:00: mouth 2 [place] ([facility]) Medical times Branch daily with meals. albuterol Yes [id number] 2{puff} Inhale 2 Univers 90 2-21 Puffs 2 ity of mcg/actuati 00:00: (two) [place] on inhaler 00 times Medical daily. Branch collagenase Yes [id number] Use as Univers 250 2-21 directed ity of unit/gram 00:00: by office Juan J as ointment 00 Medical Branch cyclobenzap Yes [id number] 10mg Take 1 Univers rine 10 mg 2-21 tablet by ity of tablet 00:00: mouth 2 [place] 00 (two) Medical times Branch daily as needed for Muscle Spasms. dextrometho Yes [id number] 10mL Take 10 mL Univers rphan-guaif 2-21 [...] for Pain (scale 4-6). melatonin 3 Yes [id number] 3mg Take 1 Univers mg tablet 2-21 tablet by ity o f 00:00: mouth at [place] 00 bedtime. Medical Branch ondansetron Yes [id number] 4mg Take 1 Univers 4 mg 2-21 tablet by ity of disintegrat 00:00: mouth [place] ing tablet 00 every 8 Medica l (eight) Branch hours as needed for Nausea and Vomiting (N/V). albuterol Yes [id number] 2{puff} Inhale 2 Univers 90 2-21 Puffs 2 ity of mcg/actuati 00:00: (two) [place] on inhaler 00 times Medical daily. Branch collagenase Yes [id number] Use as Univers 250 2-21 directed ity of unit/gram 00:00: by office Juan J as ointment 00 Medical Branch cyclobenzap Yes [id number] 10mg Take 1 Univers rine 10 mg 2-21 tablet by ity of tablet 00:00: mouth 2 [place] 00 (two) Medical times Branch daily as needed for Muscle Spasms. dextrometho Yes [id number] 10mL Take 10 mL Univers rphan-guaif 2-21 [...] for Pain (scale 4-6). melatonin 3 Yes [id number] 3mg Take 1 Univers mg tablet 2-21 tablet by ity o f 00:00: mouth at [place] 00 bedtime. Medical Branch ondansetron Yes [id number] 4mg Take 1 Univers 4 mg 2-21 tablet by ity of disintegrat 00:00: mouth [place] ing tablet 00 every 8 Medica l (eight) Branch hours as needed for Nausea and Vomiting (N/V). albuterol Yes [id number] 2{puff} Inhale 2 Univers 90 2-21 Puffs 2 ity of mcg/actuati 00:00: (two) [place] on inhaler 00 times Medical daily. Branch collagenase Yes [id number] Use as Univers 250 2-21 directed ity of unit/gram 00:00: by office [place] J as ointment 00 Medical Branch cyclobenzap Yes [id number] 10mg Take 1 Univers rine 10 mg 2-21 tablet by ity of tablet 00:00: mouth 2 [place] 00 (two) Medical times Branch daily as needed for Muscle Spasms. dextrometho Yes [id number] 10mL Take 10 mL Univers rphan-guaif 2-21 [...] for Pain (scale 4-6). melatonin 3 Yes [id number] 3mg Take 1 Univers mg tablet 2-21 tablet by ity o f 00:00: mouth at [place] 00 bedtime. Medical Branch ondansetron 2022-0 Yes [id number] 4mg Take 1 Univers 4 mg 2-21 tablet by ity of disintegrat 00:00: mouth [place] ing tablet 00 every 8 Medica l (eight) Branch hours as needed for Nausea and Vomiting (N/V). albuterol Yes [id number] 2{puff} Inhale 2 Univers 90 2-21 Puffs 2 ity of mcg/actuati 00:00: (two) [place] on inhaler 00 times Medical daily. Branch collagenase Yes [id number] Use as Univers 250 2-21 directed ity of unit/gram 00:00: by office [place] J as ointment 00 Medical Branch cyclobenzap Yes [id number] 10mg Take 1 Univers rine 10 mg 2-21 tablet by ity of tablet 00:00: mouth 2 [place] 00 (two) Medical times Branch daily as needed for Muscle Spasms. melatonin 3 Yes [id number] 3mg Take 1 Univers mg tablet 2-21 tablet by ity o f 00:00: mouth at [place] 00 bedtime. Medical Branch ondansetron Yes [id number] 4mg Take 1 Univers 4 mg 2-21 tablet by ity of disintegrat 00:00: mouth [place] ing tablet 00 every 8 Medica l (eight) Branch hours as needed for Nausea and Vomiting (N/V). albuterol Yes [id number] 2{puff} Inhale 2 Univers 90 2-21 Puffs 2 ity of mcg/actuati 00:00: (two) [place] on inhaler 00 times Medical daily. Branch collagenase Yes [id number] Use as Univers 250 2-21 directed ity of unit/gram 00:00: by office [place] J as ointment 00 Medical Branch cyclobenzap Yes [id number] 10mg Take 1 Univers rine 10 mg 2-21 tablet by ity of tablet 00:00: mouth 2 [place] 00 (two) Medical times Branch daily as needed for Muscle Spasms. melatonin 3 Yes [id number] 3mg Take 1 Univers mg tablet 2-21 tablet by ity o f 00:00: mouth at [place] 00 bedtime. Medical Branch ondansetron 0 Yes [id number] 4mg Take 1 Univers 4 mg 2-21 tablet by ity of disintegrat 00:00: mouth [place] ing tablet 00 every 8 Medica l (eight) Branch hours as needed for Nausea and Vomiting (N/V). albuterol Yes [id number] 2{puff} Inhale 2 Univers 90 2-21 Puffs 2 ity of mcg/actuati 00:00: (two) [place] on inhaler 00 times Medical daily. Branch collagenase Yes [id number] Use as Univers 250 2-21 directed ity of unit/gram 00:00: by office [place] J as ointment 00 Medical Branch cyclobenzap Yes [id number] 10mg Take 1 Univers rine 10 mg 2-21 tablet by ity of tablet 00:00: mouth 2 [place] 00 (two) Medical times Branch daily as needed for Muscle Spasms. melatonin 3 Yes [id number] 3mg Take 1 Univers mg tablet 2-21 tablet by ity o f 00:00: mouth at [place] 00 bedtime. Medical Branch ondansetron Yes [id number] 4mg Take 1 Univers 4 mg 2-21 tablet by ity of disintegrat 00:00: mouth [place] ing tablet 00 every 8 Medica l (eight) Branch hours as needed for Nausea and Vomiting (N/V). dextrometho 2021- No [id number] 10mL Take 10 mL Univers rphan-guaif 07-12 [...] Brooke Frankel 00:00: 00:00 Patient 00 :00 [facility] Diflunisal Diflunisal 2015- No Todd Wynn [address] [facility] (Dolobid) (Dolobid) 01-17 [facility] 500 Mg 500 Mg 00:00: 00:00 Patient Tablet, 500 Tablet, 500 00 :00 M edical Mg Oral Mg Oral Center Ondansetron Ondansetron 2016- No Todd Wynn [address] [facility] Hcl Hcl 01-17 [place] [facility] (Zofran*) 4 (Zofran*) 4 00:00: 00:00 needed for Patient Mg Tablet, Mg Tablet, 00 :00 Nausea M edical 4 Mg 4 Mg Center Sublingual Sublingual Clopidogrel Clopidogrel Yes [address] Bisulfate Bisulfate [facility] (Plavix) 75 (Plavix) 75 P atient Mg Tablet Mg Tablet Medic al Center Cyclobenzap Cyclobenzap Yes [address] rine Hcl rine Hcl Times A [facility] (Flexeril) (Flexeril) Day as P atient 5 Mg Tablet 5 Mg Tablet needed for Medical Muscle Center Spasms Doxazosin Doxazosin Yes [address] Mesylate Mesylate [facility] (Cardura) 8 (Cardura) 8 P [...] Tablet Mg Tablet Day [facility] Patient Medical [place] Hydrocodone Hydrocodone Yes [address] [facility] [address] Bit/Acetami Bit/Acetami Hours as [facility] nophen nophen needed for [place] [facility] ([place] ([facility] 10-325 10-325 Center Tablet) 1 [...] Mg Tablet Mg Tablet Patie nt Medical [place] Nitroglycer Nitroglycer Yes As Needed [facility] in in [facility] (Nitrostat) (Nitrostat) P atient 0.4 Mg 0.4 Mg Medical Tab.subl Tab.subl Center Omeprazole Omeprazole Yes [address] 20 Mg 20 Mg [facility] Capsule.dr Lind. [facility] Simvastatin Simvastatin Yes [address] 80 Mg 80 Mg [facility] Tablet Tablet Patient [facility] Tamsulosin Tamsulosin Yes Daily [facility] Hcl 0.4 Mg Hcl 0.4 Mg Esme es Cap.er.24h Cap.er.24h [facility] Tramadol Tramadol Yes [address] Hcl Hcl Daily as [facility] (Ultram) 50 (Ultram) 50 needed for Patient Mg Tablet Mg Tablet Pain Medic al Center Venlafaxine Venlafaxine Yes [address] Hcl 75 Mg Hcl 75 Mg [facility] Tab Tab Patient [facility] Albuterol Albuterol 2017- No 1 Twice [...] 06-17 [facility] Capsule., Capsule., 00:00 Patient :00 [facility] Center Insulin Insulin 90 Twice A [...] 25 Mg Oral 25 Mg Oral :00 [facility] Albuterol Albuterol As Needed [facility] Sulfate Sulfate 11-23 as needed [place] es (Ventolin (Ventolin 00:00 for Manjula ent Hfa) 18 Gm Hfa) 18 Gm :00 [facility] Medical Hfa.aer.ad, Hfa.aer.ad, Of Breath Center 90 Mcg 90 Mcg Inhalation Inhalation Dicyclomine Dicyclomine Twice A [facility] St Hcl 10 Mg Hcl 10 Mg 11-23 Day Luke s Capsule, 10 Capsule, 10 00:00 Patient Mg Oral Mg Oral :00 [facility] Methocarbam Methocarbam [address] [...] Mg Oral 600 Mg Oral :00 M [facility] Pregabalin Pregabalin 2013- No 150 Twice [...] Immunizations Ordered Filled Immunization Date Status Comments [facility] e Immunization Name Name Influenza Virus 2021-01-16 Completed Universit y of Vaccine 00:00:00 [facility] Influenza Virus 2021-01-16 Completed Universit y of Vaccine 00:00:00 [facility] Influenza Virus 2021-01-16 Completed Universit y of Vaccine 00:00:00 [facility] Influenza Virus 2021-01-16 Completed Universit y of Vaccine 00:00:00 [facility] Influenza Virus 2021-01-16 Completed Universit y of Vaccine 00:00:00 [facility] Influenza Virus 2021-01-16 Completed Universit y of Vaccine 00:00:00 [facility] SARS-COV-2 COVID-19 2020-10-16 Completed Unive rsity of PEDRO/J&J VACCINE 00:00:00 [facility] SARS-COV-2 COVID-19 2020-10-16 Completed Unive rsity of PEDRO/J&J VACCINE 00:00:00 [facility] SARS-COV-2 COVID-19 2020-10-16 Completed Unive rsity of PEDRO/J&J VACCINE 00:00:00 [facility] SARS-COV-2 COVID-19 2020-10-16 Completed Unive rsity of PEDRO/J&J VACCINE 00:00:00 [facility] SARS-COV-2 COVID-19 2020-10-16 Completed Unive rsity of PEDRO/J&J VACCINE 00:00:00 [facility] SARS-COV-2 COVID-19 2020-10-16 Completed Unive rsity of PEDRO/J&J VACCINE 00:00:00 [facility] Influenza Virus 2020-01-21 Completed Universit y of Vaccine 00:00:00 [facility] Influenza Virus 2020-01-21 Completed Universit y of Vaccine 00:00:00 [facility] Influenza Virus 2020-01-21 Completed Universit y of Vaccine 00:00:00 [facility] Influenza Virus 2020-01-21 Completed Universit y of Vaccine 00:00:00 [facility] Influenza Virus 2020-01-21 Completed Universit y of Vaccine 00:00:00 [facility] Influenza Virus 2020-01-21 Completed Universit y of Vaccine 00:00:00 [facility] Zoster Vaccine 2019-07-17 Completed University of Recombinant 00:00:00 [facility] Zoster Vaccine 2019-07-17 Completed University of Recombinant 00:00:00 [facility] Zoster Vaccine 2019-07-17 Completed University of Recombinant 00:00:00 [facility] Zoster Vaccine 2019-07-17 Completed University of Recombinant 00:00:00 [facility] Zoster Vaccine 2019-07-17 Completed University of Recombinant 00:00:00 [facility] Zoster Vaccine 2019-07-17 Completed University of Recombinant 00:00:00 [facility] Td 2019-03-29 Completed University of 00:00:00 [facility] Td 2019-03-29 Completed University of 00:00:00 [facility] Td 2019-03-29 Completed University of 00:00:00 [facility] Td 2019-03-29 Completed University of 00:00:00 [facility] Td 2019-03-29 Completed University of 00:00:00 [facility] Td 2019-03-29 Completed University of 00:00:00 [facility] Influenza Virus 2018-02-18 Completed Universit y of Vaccine 00:00:00 [facility] Pneumococcal 2018-02-18 Completed University o f Polysaccharide, 00:00:00 [place] [facility] PPSV23 (PNEUMOVAX) [place] Influenza Virus 2018-02-18 Completed Universit y of Vaccine 00:00:00 [facility] Pneumococcal 2018-02-18 Completed University o f Polysaccharide, 00:00:00 [place] [facility] PPSV23 (PNEUMOVAX) [place] Influenza Virus 2018-02-18 Completed Universit y of Vaccine 00:00:00 [facility] Pneumococcal 2018-02-18 Completed University o f Polysaccharide, 00:00:00 [place] [facility] PPSV23 (PNEUMOVAX) Branch Influenza Virus 2018-02-18 Completed Universit y of Vaccine 00:00:00 [facility] Pneumococcal 2018-02-18 Completed University o f Polysaccharide, 00:00:00 [place] [facility] PPSV23 (PNEUMOVAX) Branch Influenza Virus 2018-02-18 Completed Universit y of Vaccine 00:00:00 [facility] Pneumococcal 2018-02-18 Completed University o f Polysaccharide, 00:00:00 [place] [facility] PPSV23 (PNEUMOVAX) Branch Influenza Virus 2018-02-18 Completed Universit y of Vaccine 00:00:00 [facility] Pneumococcal 2018-02-18 Completed University o f Polysaccharide, 00:00:00 [place] [facility] PPSV23 (PNEUMOVAX) Branch Influenza Virus 2008-03-19 Completed Universit y of Vaccine 00:00:00 [facility] Pneumococcal 2008-03-19 Completed University o f Polysaccharide, 00:00:00 [place] [facility] PPSV23 (PNEUMOVAX) Branch Influenza Virus 2008-03-19 Completed Universit y of Vaccine 00:00:00 [facility] Pneumococcal 2008-03-19 Completed University o f Polysaccharide, 00:00:00 [place] [facility] PPSV23 (PNEUMOVAX) Branch Influenza Virus 2008-03-19 Completed Universit y of Vaccine 00:00:00 [facility] Pneumococcal 2008-03-19 Completed University o f Polysaccharide, 00:00:00 [facility] ical PPSV23 (PNEUMOVAX) Branch Influenza Virus 2008-03-19 Completed Universit y of Vaccine 00:00:00 [facility] Pneumococcal 2008-03-19 Completed University o f Polysaccharide, 00:00:00 [place] [facility] PPSV23 (PNEUMOVAX) Branch Influenza Virus 2008-03-19 Completed Universit y of Vaccine 00:00:00 [facility] Pneumococcal 2008-03-19 Completed University o f Polysaccharide, 00:00:00 [place] [facility] PPSV23 (PNEUMOVAX) Branch Influenza Virus 2008-03-19 Completed Universit y of Vaccine 00:00:00 [facility] Pneumococcal 2008-03-19 Completed University o f Polysaccharide, 00:00:00 [place] [facility] PPSV23 (PNEUMOVAX) [place] Vital Signs Vital Name Observation Time Observation Value Comments Source Systolic blood 2022-02-10 105 mm[Hg] University of pressure 16:35:00 [facility] Diastolic blood 2022-02-10 57 mm[Hg] University o f pressure 16:35:00 [facility] Heart rate 2022-02-10 65 /min University of 16:35:00 [facility] Body temperature 2022-02-10 36.22 Sandy University of 16:35:00 [facility] Respiratory rate 2022-02-10 18 /min University of 16:35:00 [facility] Oxygen saturation 2022-02-10 98 /min University of in Arterial blood 16:35:00 [place] [facility] by Pulse oximetry Branch Body weight 2022-02-10 74.98 kg University of 08:16:00 [facility] BMI 2022-02-10 25.89 kg/m2 University of 08:16:00 [facility] Body height 2022-02-10 170.2 cm Height before University of 01:18:00 Bilat BKA [facility] Systolic blood 2021-11-09 124 mm[Hg] University of pressure 23:00:00 [facility] Diastolic blood 2021-11-09 69 mm[Hg] University o f pressure 23:00:00 [facility] Heart rate 2021-11-09 72 /min University of 23:00:00 [facility] Respiratory rate 2021-11-09 25 /min University of 23:00:00 [facility] Oxygen saturation 2021-11-09 98 /min University of in Arterial blood 23:00:00 [facility] uriel by Pulse oximetry Branch Body temperature 2021-11-09 37.22 Sandy University of 20:28:39 [facility] Body height 2021-11-09 170.2 cm University of 20:16:00 [facility] Body weight 2021-11-09 71.215 kg University of 20:16:00 [facility] BMI 2021-11-09 24.59 kg/m2 University of 20:16:00 [facility] Systolic blood 2021-11-05 134 mm[Hg] University of pressure 10:00:00 [facility] Diastolic blood 2021-11-05 78 mm[Hg] University o f pressure 10:00:00 [facility] Heart rate 2021-11-05 81 /min University of 10:00:00 [facility] Body temperature 2021-11-05 36.28 Sandy University of 08:10:00 [facility] Respiratory rate 2021-11-05 18 /min [facility] 08:00:00 [facility] Oxygen saturation 2021-11-05 99 /min [facility] Arterial blood 08:00:00 [facility] by Pulse oximetry [place] Body height 2021-11-05 170.2 cm [facility] 05:48:00 [facility] Body weight 2021-11-05 71.215 kg [facility] 05:48:00 [facility] BMI 2021-11-05 24.59 kg/m2 [facility] 05:48:00 [facility] Procedures Procedure Date / Time Performing Clinician Source Performed INSURANCE CORRESPONDENCE 2022-04-19 06:01:00 Doctor Unassigned, [facility] [place] TRANSTHORACIC ECHO (TTE) 2022-02-10 13:16:00 Martha Rowe [facility] COMPLETE W/ CONTRAST Medical Bra nch PHOSPHORUS 2022-02-10 10:22:00 Martha Rowe [facility] MAGNESIUM 2022-02-10 10:22:00 Martha Rowe [facility] TROPONIN I 2022-02-10 10:22:00 Martha Rowe [facility] COMP. METABOLIC PANEL 2022-02-10 10:22:00 Martha Rowe [facility] ([id number]) [facility] CBC WITH DIFF 2022-02-10 10:22:00 Martha Rowe [facility] CREATINE KINASE 2022-02-10 04:37:00 Martha Rowe [facility] URIC ACID 2022-02-10 04:37:00 Martha Rowe [facility] FERRITIN SERUM 2022-02-10 04:37:00 Martha Rowe [facility] FOLATE 2022-02-10 04:37:00 Martha Rowe [facility] TROPONIN I 2022-02-10 04:37:00 Martha Rowe [facility] THYROID STIMULATING 2022-02-10 04:37:00 Martha Rowe [facility] HORMONE Medical Branch LIPID PANEL ([id number])(TOTAL 2022-02-10 04:37:00 [facility], Medical Branch TRIGLYCERIDES, HDL) IRON PANEL 2022-02-10 04:37:00 Martha Rowe [facility] GLYCOSYLATED HEMOGLOBIN 2022-02-10 04:37:00 Martha Rowe [facility] (A1C) [facility] N-TERMINAL PRO-BNP 2022-02-10 04:37:00 Jae daisy [facility] VITAMIN D, 25-OH 2022-02-10 04:37:00 Jae daisy [facility] COVID-19 (ID NOW RAPID 2022-02-10 04:37:00 Martha Rowe [facility] TESTING) [facility] B-TYPE NATRIURETIC FACTOR 2022-01-30 18:10:[address] [facility] (BNP) Center XR CHEST 1 VW 2021-11-09 21:07:00 Troy Ku Mckenzie [facility] POCT GLUCOSE (AUTOMATED) 2021-11-09 20:25:00 Troy Ku [facility] MAGNESIUM 2021-11-09 20:19:00 Troy Ku [facility] TROPONIN I 2021-11-09 20:19:00 Troy Ku [facility] COMP. METABOLIC PANEL 2021-11-09 20:19:00 Troy Ku [facility] ([id number]) [facility] Branch CBC WITH DIFF 2021-11-09 20:19:00 Troy Ku [facility] N-TERMINAL PRO-BNP 2021-11-09 20:19:00 Troy Ku [facility] XR CHEST 1 VW 2021-11-05 06:38:35 Mihaela Martin [facility] [id number] 2020-08-11 00:00:00 ALDMO [facility] [id number] 2020-08-11 00:00:00 ALDMO [facility] [id number] 2020-08-11 00:00:00 ALDMO [facility] [id number] 2020-08-11 00:00:00 ALDMO [facility] Computed tomography 2017-10-24 00:00:00 BROOKE ALEXIS LUCY [...] Clinicians Facility Department ID 2021-06-17 Outpatient 3 [id number] ENCKY MALDONADO [id number] [facility] 10:24:03 [id number] [facility] 2021-06-17 Outpatient 3 [id number] ENCKY REF [id number] [facility] 10:22:04 [id number] [facility] [place] 2021-03-22 Emergency [facility] [id number] Univers 15:25:20 ity of [facility] 2021-03-22 Emergency [facility] [id number] Univers 10:56:41 ity of [facility] 2021-03-21 Emergency [facility] [id number] Univers 18:15:08 ity of [facility] 2021-03-21 Emergency [facility] [id number] Univers 17:18:22 ity of [facility] 2021-03-21 Emergency [facility] [id number] Univers 12:58:19 ity of [facility] 2021-03-21 Emergency [facility] [id number] Univers 04:06:22 ity of [facility] 2021-03-21 Emergency [facility] [id number] Univers 00:12:27 ity of [facility] 2021-03-20 Emergency [facility] [id number] Univers 00:55:44 ity of [facility] 2021-03-19 Emergency [facility] [id number] Univers 17:28:47 ity of [facility] 2021-03-19 Emergency [facility] [id number] Univers 03:16:03 ity of [facility] 2021-03-18 Emergency [facility] [id number] Univers 13:56:50 ity of [facility] 2020-08-23 Inpatient HCACL FERNANDO [id number] [facility] 17:41:00 84 [facility] 2020-04-04 Inpatient Marko, HCAMN HCAMN [id number] [facility] 14:40:00 Edward 33 [facility] 2019-10-15 Inpatient RADHA Shah, HCAPM ENDO [id number] [facility] 15:30:00 Finn [address] [facility] 2022-04-19 2022-04-19 Orders Doctor JOSE 1.2.840.114 [id number] Univers 00:00:00 00:00:00 Only Unassigned, [place] [id number] ity of [place] [facility] [id number] Juan J as [id number] [facility] 009 Branch 2022-02-11 2022-02-11 Transition LATRICE Harding 1.2.840.114 [id number] Univers 00:00:00 00:00:00 of Care Josselyntoni DUQUE [id number] it y [id number] [id number] [facility] 403 Branch 2022-02-09 2022-02-10 Outpatient U JAE [facility] DARIUS [id number] Univers 19:53:00 13:45:00 MARTHA ity of [facility] 2022-02-09 2022-02-10 Hospital Ana Maria Meza [facility] 1.2.840.114 [id number] Univers 19:53:00 13:45:00 Encounter Martha Rowe [id number] ity of [id number] [id number] [facility] 081 Branch 2022-01-30 2022-01-30 [facility] [id number] 00:00:00 00:00:[address] [facility] 2022-01-30 2022-01-[address] [facility] [id number] 00:00:00 00:00:[address] [facility] 2021-11-09 2021-11-09 Emergency X Troy KU [facility] ERT [id number] Univers 15:15:00 18:32:00 ity of [facility] 2021-11-09 2021-11-09 Emergency Troy Ku [facility] 1.2.840.114 [id number] Univers 15:15:00 18:32:00 Mckenzie PEREZ [id number] i ty of [place] 4.2.7.2.686 [facility] [id number] [place] [address] [place] 2021-11-05 2021-11-05 Emergency [facility] [id number] Univers 00:44:00 06:53:00 MIHAELA baugh [facility] 2021-11-05 2021-11-05 Emergency [facility] 1.2.759.453 [id number] Univers 00:44:00 06:53:00 Mihaela PEREZ [id number] ity [facility] [id number] [facility] [id number] [facility] 084 [place] 2021-11-04 2021-11-04 Transition Feliciano CLAUDETTETanya 1.2.840.114 [id number] Univers 00:00:00 00:00:00 of Care Micaela DUQUE [id number] it y of [place] 4.2.7.2.686 [facility] [id number] [facility] 403 Branch 2021-11-02 2021-11-03 Outpatient X BRAYDON [facility] D[facility]US [id number] Univers 22:35:00 15:46:00 OC baugh [facility] 2021-11-02 2021-11-03 Emergency Curtis Xavier [facility] 1.2.840. 114 [id number] Univers 22:35:00 15:46:00 Oc Bryson [id number] ity of [place] 4.2.7.2.686 [facility] [id number] [facility] 081 Branch 2021-11-02 2021-11-03 Outpatient X BRAYDON [facility] D[facility] [id number] Univers 22:35:00 15:46:00 OC itvashti [facility] 2021-11-01 2021-11-01 Transition LATRICE Feliciano 1.2.840.114 [id number] Univers 00:00:00 00:00:00 of Care Micaela DUQUE [id number] it y of [place] 4.2.7.2.686 [facility] [phone] [facility] 403 Branch 2021-10-27 2021-10-29 Outpatient X DERRICK [facility] [id number] Univers 17:41:00 14:03:00 ANA MARIA vashti [facility] 2021-10-27 2021-10-29 Emergency Jameson Mejia [facility] 1.2.840. 114 [id number] Univers 17:41:00 14:03:00 Lizett Gerardo [id number] ity of [place] 4.2.7.2.686 [facility] [id number] [address] 2021-10-27 2021-10-29 Outpatient [facility] [id number] Univers 17:41:00 14:03:00 ANA MARIA vashti [facility] 2021-10-21 2021-10-22 Emergency [facility] ERT [id number] Univers 20:24:00 04:18:00 JYOTI [facility] 2021-10-21 2021-10-22 Emergency [facility] 1.2.490.572 [id number] Univers 20:24:00 04:18:00 Jyoti PEREZ [id number] i Joy 4.2.7.2.686 [facility] [id number] [facility] 084 Branch 2021-10-20 2021-10-20 Transition LATRICE Aleman 1.2.840.114 [id number] Univers 00:00:00 00:00:00 of Care Rico A [place] [id number] [id number] [id number] [facility] 403 Branch 2021-10-15 2021-10-18 Outpatient X DERRICK [facility] [id number] Univers 16:42:00 13:52:00 ANA MARIA itvashti [facility] 2021-10-15 2021-10-18 Emergency Jameson Mejia [facility] 1.2.840. 114 [id number] Univers 16:42:00 13:52:00 Ana Maria Meza [id number] ity of [place] [id number] [facility] 081 Branch 2021-07-23 2021-07-23 Transition LATRICE Farooq 1.2.840.114 [id number] Univers 00:00:00 00:00:00 of Care Marcella [place] [id number] i [place] [id number] [address] 2021-07-19 2021-07-22 Inpatient [facility] [id number] Univers 09:10:00 17:00:00 GEOFFREY baugh [facility] 2021-07-19 2021-07-22 [facility] Brandyn Dumont [facility] 1.2.840.1 [id number] Univers 09:10:00 17:00:00 Encounter Geoffrey Hill [facility] [id number] ity of [place] [phone] [facility] 109 Branch ([facility]) 2021-07-21 2021-07-21 Outpatient Wong_H VFP VFP [id number] Village 06:58:00 06:58:00 [id number] Family Practic e 2021-07-13 2021-07-13 Transition LATRICE Aleman 1.2.840.114 [id number] Univers 00:00:00 00:00:00 of Care Rico DU[place] [id number] [id number] [address] 2021-06-28 2021-07-12 Inpatient X ANGEL [facility] [id number] Univers 10:43:00 18:25:00 AMBIKA vashti [facility] 2021-06-28 2021-07-12 [facility] Jameson Mejia [facility] 1.2.840.1 14 [id number] Univers 10:43:00 18:25:00 Encounter Troy Ku [id number] ity of Ambika Fernandez [place] 4.2.7.2.686 [facility] [id number] [facility] 081 Branch 2021-02-15 2021-02-15 Outpatient R DONALDO, [facility] [id number] Univers 15:00:00 15:00:00 ALECIA [facility] 2021-01-11 2021-01-11 [facility] [id number] Univers 10:45:00 10:45:00 GINA baugh o f [facility] 2021-01-05 2021-01-05 Transition Latrice Aleman 1.2.840.114 [id number] Univers 00:00:00 00:00:00 of Care Rico Duque [id number] ity of [place] [id number] [facility] 403 Branch 2021-01-01 2021-01-04 [facility] Wayne Can [facility] 1.2.840.1 14 [id number] Univers 14:18:00 18:10:00 Encounter Lizett Gerardo [id number] ity of [place] [id number] [facility] 081 Branch 2021-01-01 2021-01-01 Orders Doctor JOSE 1.2.840.114 [id number] Univers 00:00:00 00:00:00 Only Unassigned, [place] [id number] ity of [place] [facility] 4.2.7.2.686 Juan J as [id number] [facility] 009 Branch 2020-12-17 2020-12-17 Transition Latrice Harding 1.2.840.114 [id number] Univers 00:00:00 00:00:00 of Care oJsselyn Duque 350.1.13.10 it y of [place] 4.2.7.2.686 [facility] [id number] [facility] 403 Branch 2020-12-14 2020-12-16 Emergency Jyoti Cedeno S [facility] 1.2.840.1 14 [id number] Univers 17:50:00 17:46:00 Ana Maria Meza [id number] ity of [place] 4.2.7.2.686 [facility] [id number] [facility] 081 Branch 2020-11-16 2020-11-16 Orders Doctor JOSE 1.2.840.114 [id number] Univers 00:00:00 00:00:00 Only Unassigned, [place] [id number] ity of [place] [facility] 4.2.7.2.686 Juan J [id number] [facility] 009 Branch 2020-10-30 2020-11-05 Inpatient EM Debi, [facility] [id number] [facility] 16:50:00 13:52:00 Fede 36244 [facility] 2020-10-31 2020-10-31 Outpatient ANNEL Carrera LABO [id number] [facility] 08:22:00 08:22:00 Fede 73 [facility] 2020-10-28 2020-10-28 Hospital Radiology [facility] 1.2.840.114 [id number] Univers 08:30:17 23:59:00 Encounter Sera 350.1.13.10 ity of [place] 4.2.7.2.686 [facility] [phone] [facility] 807 Branch 2020-10-28 2020-10-28 Hospital Radiology [facility] 1.2.840.114 [id number] 08:30:17 23:59:[address] [facility] 350.1.13.10 [place] 4.2.7.2.686 [place] [id number] 2020-10-28 2020-10-28 Outpatient R RADIOLOGY [facility] [id number] Univers 00:00:00 00:00:00 ity of [facility] 2020-10-12 2020-10-12 Office [facility] 1.2.840.114 [id number] Univers 14:02:10 14:50:48 Visit Bryan Sera 350.1.13.10 i ty of [place] [id number] [facility] 204 [facility] 2020-10-12 2020-10-12 Outpatient R CHANTELLE [facility] [id number] Univers 14:00:00 14:50:48 BRYAN ity [facility] 2020-10-12 2020-10-12 Outpatient [facility] [id number] Univers 14:00:00 14:00:00 [facility] 2020-10-06 2020-10-06 Office [facility] 1.2.840.114 [id number] Univers 10:43:51 11:59:29 Visit Gina Perez 350.1.13.10 ity [facility] [place] [id number] Wi dical [address] 2020-10-06 2020-10-06 Office [facility] 1.2.840.114 [id number] 10:43:51 11:59:29 Visit Gina Perez 350.1.13.10 [place] 4.2.7.2.686 Professio [id number] [address] 2020-10-06 2020-10-06 Outpatient R IVANA [facility] [id number] Univers 10:30:00 10:30:00 GINA baugh o f [facility] 2020-10-06 2020-10-06 Orders Doctor GARCIA 1.2.840.114 [id number] Univers 00:00:00 00:00:00 Only Unassigned, [place] 350.1.13.10 ity of [place] [facility] 4.2.7.2.686 Juan J as [id number] [address] 2020-09-28 2020-09-[address] [facility] 1.2.840.114 [id number] Univers 17:28:00 21:08:00 Elmerji Anuj Perez 350.1.13.10 ity of [place] 4.2.7.2.686 [facility] [id number] [facility] 084 Branch 2020-09-28 2020-09-28 Transition Latrice French 1.2.840.114 [id number] Univers 00:00:00 00:00:00 of Care Gilda [place] 350.1.13.10 it y of [place] [id number] [facility] 403 Branch 2020-09-23 2020-09-26 [facility] Wayne Can [facility] 1.2.840.1 14 [id number] Univers 13:50:00 18:28:00 Encounter Ambika Fernandez [id number] ity of [place] 4.2.7.2.686 [facility] [id number] [place] [address] [place] 2020-09-23 2020-09-26 Inpatient X GABRIELEALEJANDRA [facility] [id number] Univers 13:50:00 18:28:00 AMBIKA baugh [facility] 2020-09-22 2020-09-22 Outpatient [facility] [id number] Univers 09:45:00 09:45:00 GINA palacio [facility] 2020-09-10 2020-09-10 Outpatient R [facility] [id number] Univers 16:15:00 16:15:00 BRYAN [facility] 2020-09-09 2020-09-09 Transition Latrice Aleman 1.2.840.114 [id number] Univers 00:00:00 00:00:00 of Care Rico Duque 350.1.13.10 it[place] [phone] [address] 2020-09-08 2020-09-08 Outpatient [facility] [id number] Univers 08:30:00 08:30:00 GINA palacio [facility] 2020-09-02 2020-09-07 Hospital Jose Gyu [facility] 1.2.840.114 [id number] Univers 16:46:00 18:45:00 Encounter Alis Garcia [facility] 350. 1.13.10 ity of [place] up[place] 4.2.7.2.686 [place] Kaylyn Calvin Mejia [phone] [address] ([facility]) 2020-08-26 2020-08-26 Office Tha Gunter [facility] 1.2.840.114 [id number] Univers 10:44:06 11:14:06 Visit [facility] 350.1.13.10 it y of [place] [phone] [address] Office Building 2020-08-26 2020-08-26 Outpatient R THA GUNTER [facility] [id number] Univers 10:30:00 10:30:00 ity [facility] 2020-08-25 2020-08-25 Outpatient Tim HEATH [facility] [id number] Univers 10:00:00 10:00:00 GINA palacio [facility] 2020-08-24 2020-08-24 Outpatient R YENI [facility] [id number] Univers 09:00:00 09:00:00 DEIDRE [facility] 2020-08-21 2020-08-21 Office [facility] 1.2.840.114 [id number] Univers 08:43:52 09:13:46 Visit Gina Perez 350.1.13.10 ity of [place] 4.2.7.2.686 [place] [phone] [place] [address] Branch Building 2020-08-21 2020-08-21 Outpatient Tim HEATH [facility] [id number] Univers 08:30:00 08:30:00 GINA aplacio [facility] 2020-08-10 2020-08-14 Inpatient EM ANNEL MontanezCL INTE.02 [id number] [facility] 09:09:00 18:56:00 Johnie Reardon [facility] 2020-08-11 2020-08-11 Outpatient [facility] [id number] Univers 09:15:00 09:15:00 GINA palacio [facility] 2020-08-07 2020-08-07 Outpatient R [facility] [id number] Univers 10:00:00 10:00:00 GINA palacio [facility] 2020-07-27 2020-08-06 [facility] Jameson Mejia 1.2.840.1 14 [id number] Univers 12:13:00 17:15:00 Encounter Minnie Cardona 350.1.13.10 ity of [facility] 4.2.7.2.686 [place] Drew Noriega [phone] [facility] [address] [place] [address] 2020-07-27 2020-08-06 Inpatient JOHNIE SKINNER [facility] [id number] Univers 12:13:00 17:15:00 ity of [facility] 2020-07-24 2020-07-24 Outpatient R [facility] [id number] Univers 13:00:00 13:00:00 GINA workman [facility] 2020-07-21 2020-07-21 Transition Latrice Aleman 1.2.840.114 [id number] Univers 00:00:00 00:00:00 of Care Rico Duque 350.1.13.10 ity of [place] 4.2.7.2.686 Noe beckett [phone] [address] 2020-07-10 2020-07-20 [facility] Janeth Lael 1.2.84 0.114 [id number] Univers 19:24:00 21:51:00 Encounter Oc Bryson 350.1.13.10 ity of Janeth Leal [facility] 4.2.7.2.686 [place] Minnie Cardona [phone] Medical Lisa Marroquin [address] 2020-07-17 2020-07-17 Outpatient [facility] [id number] Univers 10:00:00 10:00:00 JOSE itvashti [facility] 2020-07-10 2020-07-10 Outpatient R IVANA [facility] [id number] Univers 08:45:00 08:45:00 GINA franciscovashti ji anuj [facility] 2020-06-15 2020-06-15 Telephone [facility] 1.2.203.102 [id number] Univers 00:00:00 00:00:00 Jose Perez 350.1.13.10 i ty of [place] [facility] [phone] Wi dical nal [address] Building 2020-06-11 2020-06-11 Office [facility] 1.2.840.114 [id number] Univers 13:43:55 13:58:55 Visit Jose Reyes 350.1.13.10 it y of [place]ip [place] - [phone] Med ical [facility] [address] 2020-06-11 2020-06-11 Outpatient R JANIK [facility] [id number] Univers 13:30:00 13:30:00 JOSE [facility] 2020-06-03 2020-06-03 Transition Latrice Aleman 1.2.840.114 [id number] Univers 00:00:00 00:00:00 of Care Rico Duque 350.1.13.10 ity of [place] [phone] [facility] [address] 2020-05-29 2020-06-02 [facility] Jameson Mejia [facility] 1.2.840.1 14 [id number] Univers 09:12:00 16:02:00 Encounter Lizett Gerardo 350.1.13.10 ity of Martha Rowe 4.2.7.2.686 [facility] [phone] [facility] 081 [address] 2020-05-29 2020-06-02 Inpatient X JAE [facility] [id number] Univers 09:12:00 16:02:00 MARTHA [facility] 2020-05-29 2020-05-29 Outpatient R JANKI [facility] [id number] Univers 10:15:00 10:15:00 JOSE [facility] 2020-04-23 2020-04-23 Office [facility] 1.2.840.114 [id number] Univers 13:48:18 14:03:18 Visit Jose [facility] 350.1.13.10 it y of [place] - [phone] [address] 2020-04-23 2020-04-23 Outpatient [facility] [id number] Univers 13:30:00 13:30:00 JOSE [facility] 2020-04-23 2020-04-23 Orders Doctor JOSE 1.2.840.114 [id number] Univers 00:00:00 00:00:00 Only Unassigned, CAROLINA 350.1.13.10 ity of [place] [facility] 4.2.7.2.686 Juan J as [phone] [facility] [address] [place] 2020-04-09 2020-04-09 Office [facility] 1.2.840.114 [id number] Univers 13:58:45 14:13:45 Visit Jose [facility] 350.1.13.10 it y of Dilip Cancer 4.2.7.2.686 [facility] s [place] - [phone] [address] 2020-04-09 2020-04-09 Outpatient [facility] [id number] Univers 14:00:00 14:00:00 JOSE [facility]augh [facility] 2020-03-27 2020-03-27 Transition Latrice Aleman 1.2.840.114 [id number] Univers 00:00:00 00:00:00 of Care Rico Duque 350.1.13.10 ity [place] [phone] [facility] [address] 2020-03-15 2020-03-26 Hospital Jameson Mejia 1.2.840.1 14 [id number] Univers 23:48:00 18:02:00 Encounter Kandis Hough 350.1.13.10 ity of Janki [facility] 4.2.7.2.68 6 [place] [phone] [facility] 0[address] 2020-03-18 2020-03-18 Anesthesia Caio Najera Nancy 1. 2.840.114 [id number] Univers 13:52:00 16:42:00 Stephanie Franks 350.1.13.10 ity of [facility] 4.2.7.2.686 [place] J as [phone] [facility] [address] 2020-02-06 2020-02-06 Transition Claudette Alemantanya 1.2.840.114 [id number] Univers 00:00:00 00:00:00 of Care Rico Zelayay 350.1.13.10 it[place] [phone] [facility] [address] 2020-02-03 2020-02-05 Hospital Óscar Hermosillo [facility] 1.2.8 40.114 [id number] Univers 16:55:00 20:40:00 Encounter Martha Rowe 350.1.13.10 ity of [place] [phone] [facility] [address] 2020-01-17 2020-01-17 Outpatient [facility] [id number] Univers 13:30:00 13:30:00 SENDIL ity of [facility] 2019-12-02 2019-12-02 Outpatient R [facility] [id number] Univers 15:00:00 15:00:00 ity of [facility] 2019-11-16 2019-11-21 Hospital Lopez Velazquez [facility] 1.2.840 .114 [id number] Univers 16:35:23 14:12:00 Encounter Heather Hermosillo 350.1.13.1 0 ity of [place] 4.2.[place].2.[place] [phone] [place] [address] Branch 2019-09-17 2019-09-18 [facility] 1.2.411.948 [id number] Univers 20:30:04 00:41:00 Valery Perez 350.1.13.10 ity of [place] [phone] [facility] [address] [place] 2019-09-17 2019-09-18 Emergency X ALFIE [facility] ERT [id number] Univers 20:30:04 00:41:00 WAKILI ity [facility] 2019-09-05 2019-09-05 Outpatient [facility] [id number] Univers 14:00:00 14:00:00 SENDIL ity [facility] 2019-09-05 2019-09-05 Telemedici [facility] 1.2.840.114 [id number] Univers 08:17:17 08:47:17 ne Visit Sendil Hannah Perez 350.1.13.10 it[place] of [place] Profess[place] [phone] Wi dicmd nal [address] [place] [address] 2019-09-05 2019-09-05 Telephone [facility] 1.2.261.761 [id number] Univers 00:00:00 00:00:00 Sendil Hannah Perez 350.1.13.10 it[place] of [place] Profess[place] [phone] Wi dicmd nal [address] [place] [address] 2019-09-03 2019-09-03 Outpatient R ANNA [facility] [id number] Univers 10:30:00 10:30:00 SENDIL ity [facility] 2019-08-20 2019-08-20 Telephone [facility] 1.2.999.292 [id number] Univers 00:00:00 00:00:00 Nika SHAW 350.1.13.10 ity of C[place].2.[place] [facility] [phone] Wi dical [address] [place] 2019-08-19 2019-08-19 Refill Nancy Lee 1.2.840.114 [id number] Univers 00:00:00 00:00:00 Lola Figueroa 350.1.13.10 it y of Hospital 4.2.7.2.686 [place] J as [phone] [facility] [address] [place] 2019-08-16 2019-08-16 Refill Nancy Lee 1.2.840.114 [id number] Univers 00:00:00 00:00:00 Lola Carolina 350.1.13.10 it y of [facility] 4.2.7.2.686 Juan J as [phone] [facility] [address] 2019-08-15 2019-08-15 Emergency [facility] 1.2.840.114 [id number] Univers 11:58:21 15:28:00 Demarcus Perez 350.1.13.10 i ty of [place] 4.[place].2.[place] [id number] [facility] 084 [address] 2019-08-15 2019-08-15 Emergency [facility] ERT [id number] Univers 11:58:21 15:28:00 DEMARCUS ity [facility] 2019-08-15 2019-08-15 Case JOSE Castillo 1.2.840.114 [id number] Univers 00:00:00 00:00:00 Management Ninfa FIGUEROA 350.1.13.10 ity [facility] 4.2.7.2.686 [place] J as [phone] [facility] 008 [address] 2019-08-15 2019-08-15 Telephone Anna [facility] 1.2.776.233 [id number] Univers 00:00:00 00:00:00 Ninfa Perez 350.1.13.10 it[place] of [place] [facility] [phone] [facility] 059 [facility] 2019-08-12 2019-08-12 Transition Latrice Ramirez 1.2.840.114 [id number] Univers 00:00:00 00:00:00 of Care Joan Duque 350.1.13.10 ity of [place] [id number] [facility] [address] 2019-08-06 2019-08-09 Emergency Wayne Can [facility] 1.2.840. 114 [id number] Univers 14:06:47 15:19:00 Lizett Gerardo 350.1.13.10 ity of [place] 4[place].2.[place] [phone] [facility] [address] 2019-08-06 2019-08-09 Outpatient X BRETT [facility] [id number] Univers 14:06:47 15:19:00 LIZETT ity of [facility] 2019-08-06 2019-08-06 Outpatient R TRAVIS, [facility] [id number] Univers 13:30:00 13:30:00 RICHMOND ity o f [facility] 2019-08-06 2019-08-06 Outpatient R TRAVIS, [facility] [id number] Univers 11:00:00 11:00:00 RICHMOND ity o f [facility] 2019-08-06 2019-08-06 Outpatient R TRAVIS, [facility] [id number] Univers 11:00:00 11:00:00 JUNIEJULIANN baugh o f [facility] 2019-08-06 2019-08-06 Orders Doctor JOSE 1.2.840.114 [id number] Univers 00:00:00 00:00:00 Only Unassigned, [place] 350.1.13.10 ity of [place] [facility] 4.2.7.2.686 Juan J as [phone] [facility] 009 [address] 2019-07-19 2019-07-19 Transition Latrice French 1.2.840.114 [id number] Univers 00:00:00 00:00:00 of Care Gilda Duque 350.1.13.10 it y of [place] [id number] [facility] [address] 2019-07-17 2019-07-18 Emergency Valery Carrillo 1.2.840 .114 [id number] Univers 21:36:10 21:05:00 Abu-Josy Tareq Pekin 350.1.13.1 0 ity of Hospital 4.2.7.2.686 [place] J as [id number] [facility] 090 [address] 2019-07-17 2019-07-18 Outpatient X ABU-JOSY, TAREQ [facility] [id number] Univers 21:36:10 21:05:00 ABU-JOSY, TAREQ ity of [facility] 2019-07-03 2019-07-03 Transition Latrice French 1.2.840.114 [id number] Univers 00:00:00 00:00:00 of Care Gilda Duque 350.1.13.10 it y [place] [phone] [address] 2019-07-01 2019-07-01 Transition Latrice French 1.2.840.114 [id number] Univers 00:00:00 00:00:00 of Care Gilda Duque 350.1.13.10 it y of [place] [id number] [facility] [address] [place] 2019-06-27 2019-06-27 Transition Latrice French 1.2.840.114 [id number] Univers 00:00:00 00:00:00 of Care Gilda Duque 350.1.13.10 it y of [place] [id number] [facility] [address] [place] 2019-06-24 2019-06-26 In[facility] [id number] Univers 14:51:01 18:37:00 MICHAEL ity [facility] 2019-06-24 2019-06-26 Hospital Janeth Leal 1.2.84 0.114 [id number] Univers 14:51:01 18:37:00 Encounter Michael Shirley 350.1.1 3.10 ity of [facility] 4.2.7.2.686 Juan J as [phone] [facility] 090 [address] 2019-02-06 2019-02-06 Telephone JOSE Bhatt 1.2.840.114 [id number] Univers 00:00:00 00:00:00 Cortney FIGUEROA 350.1.13.10 i ty of [facility] 4.2.7.2.686 Juan J as [id number] [facility] 008 [address] 2019-02-05 2019-02-05 Emergency [facility] 1.2.331.638 [id number] Univers 17:30:29 21:52:00 Jyoti Perez 350.1.13.10 i ty of [place] 4[place].2.[place] [id number] [place] [address] Branch 2019-01-30 2019-01-30 Transition Claudette Quevedotanya 1.2.840.114 [id number] Univers 00:00:00 00:00:00 of Care Rhonda Duque 350.1.13.10 it y of [place] [id number] [facility] [address] 2019-01-24 2019-01-29 [facility] Wayne Can 1.2.840.1 14 [id number] Univers 16:01:37 14:55:00 Encounter Dennis Finley 350.1.13.10 ity [facility] 4.2.7.2.686 [place] J as [phone] [place] [address] Branch 2019-01-22 2019-01-22 Transition EmyClaudettetanya 1.2.840.114 [id number] Univers 00:00:00 00:00:00 of Care Rhonda Duque 350.1.13.10 it y of [place] [id number] [facility] [address] 2019-01-16 2019-01-19 [facility] Carlos Allen 1.2.840.11 4 [id number] Univers 23:52:03 14:36:00 Encounter Martha Rowe 350.1.13.10 ity of [place], Dennis [facility] p[facility] 4.2.7.2.686 [place] [phone] [place] [address] Branch 2017-10-23 2017-10-27 Discharged 1 BROOKE [facility] [id number] 17:29:00 16:54:00 Inpatient ALEXIS 90 Luke s Patient [facility] 2017-04-03 2017-04-04 [id number] 23:17:00 03:53:00 Emergency LAIRD 56 Luke s Room Patient [facility] 2017-03-05 2017-03-09 Discharged ER PHILIP [facility] [id number] 06:54:00 10:58:00 Inpatient NICHELLE 44 Luke s (obs) [facility] 2017-01-04 2017-01-05 Discharged [facility] [id number] 10:33:00 18:56:00 Inpatient 61 Favio s (obs) [facility] Orders Doctor JOSE 1.2.840.114 [id number] Univers 00:00:00 00:00:00 Only Unassigned, [place] 350.1.13.10 ity of [place] [facility] 4.2.7.2.686 Juan J as [id number] Medi uriel 009 Branch Results Test Description Test Time Test Comments Results Result Comments Source Transthoracic echo (TTE) 2022-02-10 17:43:07 Test Item Value Reference Range Interpretation Comme nts Height (test code = 0468285863) in Weight (test code = 8939003128) lbs Systolic BP (test code = 8827623641) mmHg Diastolic BP (test code = 3715731662) mmHg Heart Rate (test code = 7070092116) bpm BSA (test code = 8335875746) 1.86 m2 Ao root diam (test code = 9950121590) 3.10 cm Aortic root (test code = 5005095215) 3.1 cm Ao root annulus (test code = 3.1 cm 3031746284) LVOT diameter (test code = 1.83 cm 7385930143) LVOT area (test code = 3110280479) 2.60 cm2 LVIDD (test code = 8396971636) 4.80 cm Left Ventricular End Diastolic Volume 107.5 mL by Teichholz Method (test code = 7100183) IVS (test code = 3851222590) 1.35 cm Interventricular Septum Diastolic 1.35 cm Thickness by 2D (test code = 3785478) LVPWD (test code = 8657178926) 1.35 cm PW (test code = 6304856932) 1.35 cm 0.6-1.1 EF(Teich) (test code = 5588977476) 30.10 % LVIDS (test code = 1216794948) 4.10 cm Left Ventricular End Systolic Volume 75.1 mL by Teichholz Method (test code = 0942222) FS (test code = 2501676265) 14 % EF - 2D (test code = 11890495) 30.10 % LA size (test code = 4915527528) 4.1 cm TR Peak Haile (test code = 1959283054) 232.4 cm/s Triscuspid Valve Regurgitation Peak mmHg Gradient (test code = 1535165795) LAV(MOD-sp4) (test code = 8278789339) 103.10 mL E wave decelartion time (test code = 0.15 s 0518147983) MV stenosis pressure 1/2 time (test 44.6 ms code = 8669286238) MV Peak E Haile (test code = 110.2 cm/s 4893105702) MV Peak A Haile (test code = 28.7 cm/s 4658181407) E/A ratio (test code = 0201436527) ratio MR max PG (test code = 5567455210) 78.70 mm[Hg] MR max haile (test code = 3615804018) 443.40 cm/s Mr max haile (test code = 9597102588) 443.4 m/s MV Prop V (test code = 9459462737) 45.00 cm/s MV E/e' septal (test code = 9.2 cm/s 9347370840) Tapse (test code = 9857228941) 1.53 cm LVOT stroke volume (test code = 41.70 cm3 8465512002) LVOT peak haile (test code = 87.2 cm/s 6483205449) LVOT mn grad (test code = 4529777224) mmHg AV LVOT peak gradient (test code = mmHg 9789749091) LVOT peak VTI (test code = 15.8 cm 0390421745) LV V1 mean (test code = 0177994146) 51.30 cm/s Aortic valve mean velocity (test code 78.3 cm/s = 2627037484) Ao peak haile (test code = 4254908414) 111.8 cm/s Ao VTI (test code = 3358183312) 21.5 cm AV area by cont VTI (test code = 1.9 cm2 2376041587) AV area peak haile (test code = 2.1 cm2 7012273022) Ao max PG (test code = 2001740110) 5.00 mm[Hg] AV peak gradient (test code = mmHg 1469465195) AV valve area (test code = 1.94 cm2 2474438841) AV mean gradient (test code = mmHg 7701619502) Radiology Study observation (narrative) (test code = 17812-1) DIANE (test code = DIANE) Table formatting [...] lateral and apex.All other segments are normal. [facility] [id number] 12:01:08 Test Item Value Reference Interpretation Comments Range TROPONIN I (test 0.021 ng/mL See_Comment [Automated code = 8769860875) message] The system which generated this result [...] biotin. Lab Interpretation Normal (test code = 44419-7) [facility]2022-[facility]-22 11:50:23 Test Item Value Reference Range Interpretation Comments MAGNESIUM (test code = 2607162080) 1.7 mg/dL 1.7-2.4 Lab Interpretation (test code = Normal 80523-5) [facility] MET[facility]OLIC PANEL (91216)2022-02-10 11:50:22 Test Item Value Reference Range Interpretation Comments NA (test code = 138 mmol/L 135-145 3345851471) K (test code = 3.9 mmol/L 3.5-5 1547291307) CL (test code = 108 mmol/L 98-108 2838564049) CO2 TOTAL (test code = 24 mmol/L 23-31 4723865222) AGAP (test code = 2-16 1266231931) BUN (test code = 19 mg/dL 7-23 8890259804) GLUCOSE (test code = 117 mg/dL 70-110 H 4585371867) CREATININE (test code = 0.91 mg/dL 0.6-1.25 4395811376) TOTAL BILI (test code = 1.0 mg/dL 0.1-1.1 4064954949) CALCIUM (test code = 8.5 mg/dL 8.6-10.6 L 8279398644) T PROTEIN (test code = 6.4 g/dL 6.3-8.2 8625842016) ALBUMIN (test code = 3.4 g/dL 3.5-5 L 2130429889) ALK PHOS (test code = 177 U/L 34-122 H 8200033090) ALTv (test code = 24 U/L 5-50 1742-6) AST(SGOT) (test code = 38 U/L 13-40 0539950277) eGFR (test code = mL/min/1.73m2 9256557420) DIANE (test code = DIANE) Association of [...] tests). Lab Interpretation Abnormal (test code = 06096-6) [facility]2022-09-22 11:50:22 Test Item Value Reference Range Interpretation Comments PHOSPHORUS (test code = 9007409126) 5.1 mg/dL 2.5-5 H Lab Interpretation (test code = Abnormal 60830-4) [facility] WITH [id number] 11:19:02 Test Item Value Reference Range Interpretation [...] RDW-SD (test code = 48.0 fL 38.5-51.6 66163-3) RDW-CV (test code = 14.2 % 12.1-15.4 788-0) PLT (test code = See_Comment [Automated 777-3) message] The sy stem which generated this result transmitted reference range : 150 - 328 10*3/ ?L. The reference r batsheva was not used to interpret this result as normal/abnormal . MPV (test code = 10.2 fL 9.8-13 66203-1) NRBC/100 WBC (test See_Comment [Automat ed code = 3695301045) message] The system which generated this result transmitted reference range : 0.0 - 10.0 /100 WBCs. The refer ence range was not u sed to interpret th is result as normal/abnormal . NRBC x10^3 (test code See_Comment [Auto mated = 6486258651) message] The s ystem which generated this result transmitted reference range : 10*3/?L. The reference range was not used to interpret this result as normal/abnormal . GRAN MAT (NEUT) % 68.5 % (test code = 770-8) IMM GRAN % (test code 0.40 % = 8689971353) LYMPH % (test code = 19.0 % 736-9) MONO % (test code = 8.3 % 5905-5) EOS % (test code = 3.4 % 713-8) BASO % (test code = 0.4 % 706-2) GRAN MAT x10^3(ANC) 3.65 10*3/uL 1.99-6.95 (test code = 0337120000) IMM GRAN x10^3 (test 0-0.06 code = 3984992095) LYMPH x10^3 (test code 1.01 10*3/uL 1.09-3.23 L = 731-0) MONO x10^3 (test code 0.44 10*3/uL 0.36-1.02 = 742-7) EOS x10^3 (test code = 0.18 10*3/uL 0.06-0.53 711-2) BASO x10^3 (test code 0.01-0.09 = 704-7) Lab Interpretation Abnormal (test code = 62799-8) [facility]:33:12 Test Item Value Reference Range Interpretation Comments BNP (test code = 92476-0) 443 pg/mL 0-100 H DIANE (test code = DIANE) Teacher Hearing Impaired ID - ADRY Lab Interpretation (test Abnormal code = 64769-7) [facility] 23:33:12 Test Item Value Reference Range Interpretation Comments BNP (test code = 95841-6) 443 pg/mL 0-100 H DIANE (test code = DIANE) Teacher Hearing Impaired ID - ADRY Lab Interpretation (test Abnormal code = 27187-2) [facility] 23:33:12 Test Item Value Reference Range Interpretation Comments BNP (test code = 72719-5) 443 pg/mL 0-100 H DIANE (test code = DIANE) Teacher Hearing Impaired ID - ADRY Lab Interpretation (test Abnormal code = 29440-5) [facility] 23:33:12 Test Item Value Reference Range Interpretation Comments BNP (test code = 40744-4) 443 pg/mL 0-100 H DIANE (test code = DIANE) Teacher Hearing Impaired ID - ADRY Lab Interpretation (test Abnormal code = 13515-4) [facility] 23:33:12 Test Item Value Reference Range Interpretation Comments BNP (test code = 92207-5) 443 pg/mL 0-100 H DIANE (test code = DIANE) Teacher Hearing Impaired ID - ADRY Lab Interpretation (test Abnormal code = 66872-9) [facility] 23:33:12 Test Item Value Reference Range Interpretation Comments BNP (test code = 46802-6) 443 pg/mL 0-100 H DIANE (test code = DIANE) Teacher Hearing Impaired ID - ADRY Lab Interpretation (test Abnormal code = 10110-2) [facility]30 23:33:12 Test Item Value Reference Range Interpretation Comments BNP (test code = 16252-1) 443 pg/mL 0-100 H DIANE (test code = DIANE) Teacher Hearing Impaired ID - ADRY Lab Interpretation (test Abnormal code = 00772-8) [facility]2022-01-30 23:33:12 Test Item Value Reference Range Interpretation Comments BNP (test code = 39707-7) 443 pg/mL 0-100 H DIANE (test code = DIANE) Teacher Hearing Impaired ID - ADRY Lab Interpretation (test Abnormal code = 30985-0) [facility]2022-01-30 23:33:12 Test Item Value Reference Range Interpretation Comments BNP (test code = 49341-3) 443 pg/mL 0-100 H DIANE (test code = DIANE) Teacher Hearing Impaired ID - ADRY Lab Interpretation (test Abnormal code = 86650-7) [facility]2022-01-30 23:33:12 Test Item Value Reference Range Interpretation Comments BNP (test code = 36663-8) 443 pg/mL 0-100 H DIANE (test code = DIANE) Teacher Hearing Impaired ID - ADRY Lab Interpretation (test Abnormal code = 72791-7) [facility]2022-01-30 23:33:12 Test Item Value Reference Range Interpretation Comments BNP (test code = 80526-6) 443 pg/mL 0-100 H DIANE (test code = DIANE) Teacher Hearing Impaired ID - ADRY Lab Interpretation (test Abnormal code = 83749-7) [facility]2022-01-30 23:33:12 Test Item Value Reference Range Interpretation Comments BNP (test code = 11143-0) 443 pg/mL 0-100 H DIANE (test code = DIANE) Teacher Hearing Impaired ID - ADRY Lab Interpretation (test Abnormal code = 20296-3) [facility]BNP)2022-01-30 23:33:12 Test Item Value Reference Range Interpretation Comments B-TYPE NATRIURETIC PEPTIDE (BEAKER) 443 pg/mL 0-100 H (test code = 700) Teacher Hearing Impaired ID - [facility] [id number] 20:57:59 Test Item Value Reference Interpretation Comments Range TROPONIN I (test 0.017 ng/mL See_Comment [Automated code = 8068848504) message] The system which generated this result [...] biotin. Lab Interpretation Normal (test code = 40604-0) [facility] [id number] 20:54:59 Test Item Value Reference Range Interpretation Comments NT-proBNP (test code 6490 pg/mL See_Comment H [Autom ated = 0800182771) message] The system which generated this result transmitted reference range : <=125. The reference range was not used to interpret this result as normal/abnormal . DIANE (test code = DIANE) Biotin has been reported to cause a negative bias, interpret results relative to patient's use of biotin. Lab Interpretation Abnormal (test code = 46839-8) [facility]2022-[facility]-21 20:46:35 Test Item Value Reference Range Interpretation Comments MAGNESIUM (test code = 2223482075) 1.5 mg/dL 1.7-2.4 L Lab Interpretation (test code = Abnormal 67562-0) [facility]. METABOLIC PANEL (61701)2021-11-09 20:46:34 Test Item Value Reference Range Interpretation Comments NA (test code = 140 mmol/L 135-145 4201543334) K (test code = 3.9 mmol/L 3.5-5.0 5400213599) CL (test code = 111 mmol/L 98-108 H 7417624569) CO2 TOTAL (test code = 16 mmol/L 23-31 L 7495148679) AGAP (test code = 2-16 1212318009) BUN (test code = 14 mg/dL 7-23 1302537846) GLUCOSE (test code = 189 mg/dL 70-110 H 1384225961) CREATININE (test code = 0.66 mg/dL 0.60-1.25 2882729503) TOTAL BILI (test code = 0.8 mg/dL 0.1-1.5 0970963757) CALCIUM (test code = 8.3 mg/dL 8.6-10.6 L 1738359809) T PROTEIN (test code = 6.5 g/dL 6.3-8.2 5208981247) ALBUMIN (test code = 3.3 g/dL 3.5-5.0 L 5553728419) ALK PHOS (test code = 136 U/L 34-122 H 5525294061) ALTv (test code = 18 U/L 5-50 1742-6) AST(SGOT) (test code = 26 U/L 13-40 4838227690) eGFR (test code = mL/min/1.73m2 2670954676) DIANE (test code = DIANE) Association of [...] tests). Lab Interpretation Abnormal (test code = 73665-5) [facility] WITH [id number] 20:33:30 Test Item Value Reference Range Interpretation Comments WBC (test code = See_Comment [Automated 7819-2) message] The sy stem which generated this result transmitted reference range : 4.20 - 10.70 10*3/?L. The reference range was not used to interpret this result as normal/abnormal . RBC (test code = See_Comment [Automated 781-0) message] The sy stem which generated this [...] RDW-SD (test code = 45.4 fL 38.5-51.6 23548-7) RDW-CV (test code = 14.2 % 12.1-15.4 788-0) PLT (test code = See_Comment [Automated 777-3) message] The sy stem which generated this result transmitted reference range : 150 - 328 10*3/ ?L. The reference r batsheva was not used to interpret this result as normal/abnormal . MPV (test code = 9.8 fL 9.8-13.0 55515-6) NRBC/100 WBC (test See_Comment [Automat ed code = 2495696913) message] The system which generated this result transmitted reference range : 0.0 - 10.0 /100 WBCs. The refer ence range was not u sed to interpret th is result as normal/abnormal . NRBC x10^3 (test code <0.01 See_Comment [Auto mated = 7291076099) message] The s ystem which generated this result transmitted reference range : 10*3/?L. The reference range was not used to interpret this result as normal/abnormal . GRAN MAT (NEUT) % 62.3 % (test code = 770-8) IMM GRAN % (test code 0.80 % = 1272872769) LYMPH % (test code = 25.1 % 736-9) MONO % (test code = 6.7 % 5905-5) EOS % (test code = 4.7 % 713-8) BASO % (test code = 0.4 % 706-2) GRAN MAT x10^3(ANC) 4.76 10*3/uL 1.99-6.95 (test code = 8841746819) IMM GRAN x10^3 (test 0.06 10*3/uL 0.00-0.06 code = 0810871292) LYMPH x10^3 (test code 1.92 10*3/uL 1.09-3.23 = 731-0) MONO x10^3 (test code 0.51 10*3/uL 0.36-1.02 = 742-7) EOS x10^3 (test code = 0.36 10*3/uL 0.06-0.53 711-2) BASO x10^3 (test code 0.03 10*3/uL 0.01-0.09 = 704-7) Lab Interpretation Abnormal (test code = 08797-4) [facility] (AUTOMATED)2021-11-09 20:27:39 Test Item Value Reference Range Interpretation Comments POCT GLU (test code = 5474175576) 190 mg/dL 70-110 H Lab Interpretation (test code = Abnormal 34657-9) [facility]ED[facility] [id number] 11:52:00 Test Item Value Reference Range Interpretation Comments GLUCOSE BEDSIDE TESTING (test code = 92 mg/dL 70-110 N GLUBED) GLUCOSE BEDSIDE [id number] 08:05:00 Test Item Value Reference Range Interpretation Comments GLUCOSE BEDSIDE TESTING (test code = 62 mg/dL 70-110 L GLUBED) GLUCOSE BEDSIDE [id number] 20:40:00 Test Item Value Reference Range Interpretation Comments GLUCOSE BEDSIDE TESTING (test code 105 mg/dL 70-110 N = GLUBED) GLUCOSE BEDSIDE [id number] 17:02:00 Test Item Value Reference Range Interpretation Comments GLUCOSE BEDSIDE TESTING (test code 128 mg/dL 70-110 H = GLUBED) GLUCOSE BEDSIDE [id number] 16:37:00 Test Item Value Reference Range Interpretation Comments GLUCOSE BEDSIDE TESTING (test code 105 mg/dL 70-110 N = GLUBED) GLUCOSE BEDSIDE [id number] 08:17:00 Test Item Value Reference Range Interpretation Comments GLUCOSE BEDSIDE TESTING (test code = 88 mg/dL 70-110 N GLUBED) GLUCOSE BEDSIDE [id number] 19:45:00 Test Item Value Reference Range Interpretation Comments GLUCOSE BEDSIDE TESTING (test code 115 mg/dL 70-110 H = GLUBED) GLUCOSE BEDSIDE [id number] 18:13:00 Test Item Value Reference Range Interpretation Comments GLUCOSE BEDSIDE TESTING (test code = 74 mg/dL 70-110 N GLUBED) GLUCOSE BEDSIDE [id number] 17:29:00 Test Item Value Reference Range Interpretation Comments GLUCOSE BEDSIDE TESTING (test code = 44 mg/dL 70-110 LL GLUBED) GLUCOSE BEDSIDE [id number] 12:26:00 Test Item Value Reference Range Interpretation Comments GLUCOSE BEDSIDE TESTING (test code = 96 mg/dL 70-110 N GLUBED) GLUCOSE BEDSIDE [id number] 08:21:00 Test Item Value Reference Range Interpretation Comments GLUCOSE BEDSIDE TESTING (test code = 77 mg/dL 70-110 N GLUBED) GLUCOSE BEDSIDE [id number] 20:12:00 Test Item Value Reference Range Interpretation Comments GLUCOSE BEDSIDE TESTING (test code = 91 mg/dL 70-110 N GLUBED) GLUCOSE BEDSIDE [id number] 16:42:00 Test Item Value Reference Range Interpretation Comments GLUCOSE BEDSIDE TESTING (test code 106 mg/dL 70-110 N = GLUBED) GLUCOSE BEDSIDE [id number] 11:49:00 Test Item Value Reference Range Interpretation Comments GLUCOSE BEDSIDE TESTING (test code = 89 mg/dL 70-110 N GLUBED) GLUCOSE BEDSIDE [id number] 08:22:00 Test Item Value Reference Range Interpretation Comments GLUCOSE BEDSIDE TESTING (test code = 68 mg/dL 70-110 L GLUBED) GLUCOSE BEDSIDE [id number] 20:05:00 Test Item Value Reference Range Interpretation Comments GLUCOSE BEDSIDE TESTING (test code 137 mg/dL 70-110 H = GLUBED) GLUCOSE BEDSIDE [id number] 16:42:00 Test Item Value Reference Range Interpretation Comments GLUCOSE BEDSIDE TESTING (test code = 98 mg/dL 70-110 N GLUBED) GLUCOSE BEDSIDE [id number] 11:13:00 Test Item Value Reference Range Interpretation Comments GLUCOSE BEDSIDE TESTING (test code 118 mg/dL 70-110 H = GLUBED) GLUCOSE BEDSIDE [id number] 07:37:00 Test Item Value Reference Range Interpretation Comments GLUCOSE BEDSIDE TESTING (test code 140 mg/dL 70-110 H = GLUBED) COMPREHENSIVE METABOLIC [id number] 06:34:00 Test Item Value Reference Range Interpretation [...] TOTAL (test code = ALKP) CBC W/AUTO [id number] 06:25:00 Test Item Value Reference Range Interpretation [...] DIFF/SCN CRITERIA = MDIFF) - CT ABDOMEN W/[id number] 03:09:00 [facility] 1960 Sex: M Name: FAITH VANCE [place] : 1960 Age/S: 60 / M [address] [facility] Unit #: [id number] Loc: [place] [address] Phys: Fede Carrera DO Acct: [id number] Dis Date: Status: ADM IN PHONE #: [phone] Exam Date: 10/31/20201919 FAX #: Reason: NAUSEA, VOMITING, DIARRHEA EXAMS: CPT: [id number] CT ABDOMEN W/CONTRAST 54362 EXAM: - CT ABDOMEN W/CONTRAST LOCATION: H61 [...] (CONTINUED) Name: FAITH [place] : 1960 Age/S: 60 / M [address] [facility] Unit #: [id number] Loc: [place] [address] Phys: Fede Preston DO Acct: [id number] Dis Date: Status: ADM IN PHONE #: [phone] Exam Date: FAX #: Reason: NAUSEA, VOMITING, DIARRHEA EXAMS: CPT: [id number] CT ABDOMEN W/CONTRAST 60896 <Continued> small bowel wall thickening. The appendix [...] Rohan(Tim) CTDI: DLP: Trnscb Date/Time: 11/01/2020 (308) t.KATHRYNR.TH15 Orig Print D/T: S: 11/01/2020 (031) PAGE 2 Signed ReportGLUCOSE BEDSIDE [id number] 21:34:00 Test Item Value Reference Range Interpretation Comments GLUCOSE BEDSIDE TESTING (test code 161 mg/dL 70-110 H = GLUBED) GLUCOSE BEDSIDE [id number] 17:32:00 Test Item Value Reference Range Interpretation Comments GLUCOSE BEDSIDE TESTING (test code 136 mg/dL 70-110 H = GLUBED) - XR ABDOMEN 1 [id number] 12:44:00 [facility] 1960 Sex: M Name: FAITH VANCE [facility] : 1960 Age/S: 60 / M [address] Unit #: [id number] Loc: [place] [address] Phys: Fede Carrera DO Acct: [id number] Dis Date: Status: ADM IN PHONE #: [phone] Exam Date: 10/31/20201226 FAX #: Reason: Abdominal pain in the lower qudarants EXAMS: CPT: [id number] XR ABDOMEN 1 V 80945 Fluoro Time: DAP (Gy m2): Air Kerma [...] PAGE 1 Signed Report Name: FAITH VANCE [place] : 1960 Age/S: 60 / M [address] Unit #: [id number] Loc: [place] [address] Phys: Fede Carrera DO Acct: [id number] Dis Date: Status: ADM IN PHONE #: [phone] Exam Date: 10/31/2020 1227 FAX #: Reason: Abdominal pain in the lower qudarants EXAMS: CPT: [id number] XR ABDOMEN 1 V 72019 Fluoro Time: DAP (Gy m2): Air Kerma (mGy): <Continued> Technologist: Cecelia Arias RT(R) Trnscb Date/Time: 10/31/2020 (7500) t.KATHRYNR.AGV Orig Print D/T: S: 10/31/2020 (3334) PAGE 2 Signed Report GLUCOSE BEDSIDE [id number] 11:58:00 Test Item Value Reference Range Interpretation Comments GLUCOSE BEDSIDE TESTING (test code 105 mg/dL 70-110 N = GLUBED) GLUCOSE BEDSIDE [id number] 08:01:00 Test Item Value Reference Range Interpretation Comments GLUCOSE BEDSIDE TESTING (test code 106 mg/dL 70-110 N = GLUBED) [id number] 22:46:00 Test Item Value Reference Range Interpretation [...] yby method. Completed by Nursing: NOGLUCOSE BEDSIDE [id number] 21:55:00 Test Item Value Reference Range Interpretation Comments GLUCOSE BEDSIDE TESTING (test code 119 mg/dL 70-110 H = GLUBED) [id number] 19:33:00 Test Item Value Reference Range Interpretation [...] method. Completed by Nursing: Denise 2019 nCoV [id number] 18:46:00 Test Item Value Reference Range Interpretation Comments Coronavirus 2019 nCoV Negative Negative Per ma nufacturer, Bedside (test code = negativ e results should [id number]) be treated aspresumptive a nd, if inconsistent [...] with COVID-19. Spec Comments: NNT PRO-BRAIN NATRIURETIC [id number] 15:51:00 Test Item Value Reference Range Interpretation Comments NT PRO-BRAIN NATRIURETIC PEPTI 6079 PG/ML 0-100 H (test code = PROBNP) Completed by Nursing: [id number] 15:51:00 Test Item Value Reference Range Interpretation [...] yby method. Completed by Nursing: NOBASIC METABOLIC [id number] 15:51:00 Test Item Value Reference Range Interpretation [...] Completed by Nursing: NO- XR CHEST 1 [id number] 15:42:00 [facility] 1960 Sex: M Name: FAITH VANCE [facility] : 1960 Age/S: 60 / M [address] Unit #: [id number] Loc: [place] [address] Phys: Todd Jacobo MD Acct: [id number] Dis Date: Status: PRE ER PHONE #:[phone] Exam Date: 10/30/2020 7794 FAX #: Reason: chest pain EXAMS: CPT: [id number] XR CHEST 1 V 64874 Fluoro Time: DAP (Gy m2): Air Kerma [...] PAGE 1 Signed Report Name: FAITH VANCE [place] : 1960 Age/S: 60 / M [address] [place] [address] Unit #: [id number] Loc: [place] [address] Phys: Todd Jacobo MD Acct: [id number] Date: Status: PRE ER PHONE #: [phone] Exam Date: 10/30/2020 1524 FAX #: Reason: chest painEXAMS: CPT: [id number] XR CHEST 1 V 20457 Fluoro Time: DAP (Gy m2): Air Kerma (mGy): <Continued> Technologist: Kim Andrews, RT(R)(CT) Trnscb Date/Time: 10/30/2020 (1542) t.SDR.RB24 Orig Print D/T: S: 10/30/2020 (7947) PAGE 2 Signed ReportCBC W/O [id number] 15:31:00 Test Item Value Reference Range Interpretation [...] 9.70 fL 7.0-9.6 H MPV) BASIC METABOLIC [id number] 21:42:00 Test Item Value Reference Range Interpretation [...] 9.6 mg/dL 8.0-10.5 N CA) HEPATIC FUNCTION [id number] 21:42:00 Test Item Value Reference Range Interpretation [...] 114 IUnit/L 20-125 N code = ALKP) [id number] 21:42:00 Test Item Value Reference Range Interpretation Comments LIPASE (test code = LIP) 70 U/L 13-57 H [id number] 21:42:00 Test Item Value Reference Range Interpretation [...] by method. UA RFLX MICR CULT IF [id number] 21:37:00 Test Item Value Reference Range Interpretation [...] INDWELLING CATH (CEDENO)Cath Status: Under 72 hoursPROTHROMBIN [id number] 21:35:00 Test Item Value Reference Range Interpretation [...] (to prevent recurrent infar ct). THROMBOPLASTIN TIME [id number] 21:35:00 Test Item Value Reference Range Interpretation Comments THROMBOPLASTIN TIME 41.7 Seconds 25.0-39.5 H Therape utic Range: PARTIAL (test code = 50.4 - 88.3 Seconds PTT) Effective 09/04/2018 CBC W/AUTO [id number] 21:29:00 Test Item Value Reference Range Interpretation [...] = MDIFF) - CT ABD PELVIS W/O [id number] 20:49:00 [facility] : 1960 Sex: M Name: FAITH VANCE [facility] [place] : 1960 Age/S: 60 / M [address] [place] [address] Unit #: [id number] Loc: [place] [address] Phys: Gisel Eugene [facility] Acct: [id number] Dis Date: Status: REG ER PHONE #: [phone] Exam Date: 08/23/20202024 FAX #: [phone] Reason: DIFFUSE ABDOMINAL PAIN EXAMS: CPT CODE: [id number] CT ABD PELVIS W/O CONT 26733 Clinical indication: Diffuse abdominal pain. Contrast - [...] 1 Signed Report (CONTINUED) Name: FAITH VANCE [facility] [place] : 1960 Age/S: 60 / M [address] [place] [address] Blvd Unit #: [id number] Loc: [place] [address] Phys: Gisel Eugene Acct: [id number] Dis Date: Status: REG ER PHONE #: [phone] Exam Date: 08/23/20202024 FAX #: [phone] Reason: DIFFUSE ABDOMINAL PAINEXAMS: CPT CODE: [id number] CT ABD PELVIS W/O CONT 04886 <Continued> Peritoneum/Other: No extraluminal air. No extraluminal [...] appendix. 6. Posterior instrumented fusion from L4 throughL5 levels. 7. Small left pleural effusion. at 2048 Reported and signed by: Irene Katz M.D. CC: Alf Hope DO; Nika Martin MD; Gisel Eugene Technologist:RT Fanta(R)(CT) CTDI: DLP: Trnscb Date/Time: 08/23/2020 (2048) tMATTR.VB9 Orig Print D/T: S: 08/23/2020 (2051) PAGE 2 Signed [id number] 16:58:00 Test Item Value Reference Range Interpretation Comments GLUBED (test code = 159 MG/DL 70-110 H Performe d by certified GLUBED) braiding operator at [facility] [id number] 11:58:00 Test Item Value Reference Range Interpretation Comments GLUBED (test code = 149 MG/DL 70-110 H Performe d by certified GLUBED) braiding operator at [facility] BASIC METABOLIC [id number] 08:00:00 Test Item Value Reference Range Interpretation [...] 9.9 mg/dL 8.0-10.5 N CA) CBC W/AUTO [id number] 07:08:00 Test Item Value Reference Range Interpretation [...] DIFF REQUIRED (test code NO = MDIFF) [id number] 05:21:00 Test Item Value Reference Range Interpretation Comments GLUBED (test code = 150 MG/DL 70-110 H Performe d by certified GLUBED) braiding operator at [facility] [id number] 21:13:00 Test Item Value Reference Range Interpretation Comments GLUBED (test code = 129 MG/DL 70-110 H Performe d by certified GLUBED) braiding operator at [facility] [id number] 16:48:00 Test Item Value Reference Range Interpretation Comments GLUBED (test code = 116 MG/DL 70-110 H Performe d by certified GLUBED) braiding operator at [facility] [id number] 12:18:00 Test Item Value Reference Range Interpretation Comments GLUBED (test code = 136 MG/DL 70-110 H Performe d by certified GLUBED) braiding operator at [facility] [id number] 12:18:00 Test Item Value Reference Range Interpretation Comments GLUBED (test code = 151 MG/DL 70-110 H Performe d by certified GLUBED) braiding operator at [facility] CBC W/AUTO [id number] 07:32:00 Test Item Value Reference Range Interpretation [...] (test code NO = MDIFF) BASIC METABOLIC [id number] 07:29:00 Test Item Value Reference Range Interpretation [...] code = 9.0 mg/dL 8.0-10.5 N CA) [id number] 05:19:00 Test Item Value Reference Range Interpretation Comments GLUBED (test code = 135 MG/DL 70-110 H Performe d by certified GLUBED) braiding operator at [facility] [id number] 20:31:00 Test Item Value Reference Range Interpretation Comments GLUBED (test code = 189 MG/DL 70-110 H Performe d by certified GLUBED) braiding operator at [facility] [id number] 17:41:00 Test Item Value Reference Range Interpretation Comments GLUBED (test code = 140 MG/DL 70-110 H Performe d by certified GLUBED) braiding operator at [facility] - CTA CHEST FOR [id number] 13:48:00 [facility] FAITH [facility] : 1960 Sex: M Name: FAITH VANCE [facility] [place] : 1960 Age/S: 60 / M [address] [place] [address] Blvd Unit #: [id number] Loc: [place] [address] Phys: Gina Gonzalez [employer] Acct: [id number] Dis Date: Status: ADM IN PHONE #: [phone] Exam Date: 08/12/2020911 FAX #: [phone] Reason: CP, elevated D-dimer EXAMS: CPT CODE: [id number] [place] [address] PROCEDURE: CTA CHEST INDICATION: CP, elevated D-dimer; [...] Signed Report (CONTINUED) Name: FAITH VANCE [facility] : 1960 Age/S: 60 / M [address] [place] [address] Blvd Unit #: [id number] Loc: [place] [address] Phys: Gina Gonzalez NP Acct: [id number] Dis Date: Status: ADM IN PHONE #: [phone] Exam Date: 08/12/2020911 FAX #: [phone] Reason: CP, elevated D-dimer EXAMS: CPT CODE: [id number] [place] [address] <Continued> contrastenhancement. No acute abnormality demonstrated. MUSCULOSKELETAL: Healed median sternotomy. No acute skeletal abnormality. IMPRESSION: 1. Negative for pulmonary embolic disease within limitations noted.2. Atherosclerosis. 3. Coronary arterial calcifications with prior coronary arterial stents and CABG. 4. Interstitial edema. No consolidation. 5. Small bilateral pleural effusions. SL: [id number] at 1348 Reported and signed by:Christiano Piña M.D. CC: Johnie Montanez MD; Gina Gonzalez NP; Nika Martin MD Techn ologist:Kate Camacho, RT(R)(CT) CTDI: DLP: Trnscb Date/Time: 08/12/2020 (1348) Ashley Orig Print D/T: S: 08/12/2020 (1351) PAGE 2 Signed ReportGLUBED 2020-08-12 11:38:00 Test Item Value Reference Range Interpretation Comments GLUBED (test code = 146 MG/DL 70-110 H Performe d by certified GLUBED) braiding operator at [facility] CBC W/AUTO [id number] 09:17:00 Test Item Value Reference Range Interpretation [...] (test code NO = MDIFF) BASIC METABOLIC [id number] 08:28:00 Test Item Value Reference Range Interpretation [...] code = 8.3 mg/dL 8.0-10.5 N CA) [id number] 08:28:00 Test Item Value Reference Range Interpretation Comments PHOSPHOROUS (test code = PHOS) 3.6 MG/DL 2.5-4.9 N [id number] 08:28:00 Test Item Value Reference Range Interpretation Comments MAGNESIUM (test code = MAG) 1.94 mg/dL 1.80-2.40 N [id number] 07:16:00 Test Item Value Reference Range Interpretation Comments GLUBED (test code = 170 MG/DL 70-110 H Performe d by certified GLUBED) braiding operator at [facility] [id number] 07:16:00 Test Item Value Reference Range Interpretation Comments GLUBED (test code = 137 MG/DL 70-110 H Performe d by certified GLUBED) braiding operator at [facility] [id number] 17:01:00 Test Item Value Reference Range Interpretation Comments GLUBED (test code = 88 MG/DL 70-110 N Performe d by certified GLUBED) braiding operator at [facility] [id number] 16:56:00 Test Item Value Reference Range Interpretation Comments ACT-ISTAT (test code 186 SEC 74-137 H Perform ed by certified = ACTI) braiding operator at [facility] [id number] 15:03:00 Test Item Value Reference Range Interpretation Comments ACT-ISTAT (test code 235 SEC 74-137 H Perform ed by certified = ACTI) braiding operator at [facility] [id number] 11:33:00 Test Item Value Reference Range Interpretation Comments GLUBED (test code = 97 MG/DL 70-110 N Performe d by certified GLUBED) braiding operator at [facility] [id number] 06:54:00 Test Item Value Reference Range Interpretation Comments GLUBED (test code = 136 MG/DL 70-110 H Performe d by certified GLUBED) braiding operator at [facility] BASIC METABOLIC [id number] 06:00:00 Test Item Value Reference Range Interpretation [...] COMMENTS: To be done morning of Heart [id number] 06:00:00 Test Item Value Reference Range Interpretation Comments PHOSPHOROUS (test code = PHOS) 4.1 MG/DL 2.5-4.9 N COMMENTS: To be done morning of Heart [id number] 06:00:00 Test Item Value Reference Range Interpretation Comments MAGNESIUM (test code = MAG) 1.74 mg/dL 1.80-2.40 L COMMENTS: To be done morning of Heart CathTHROMBOPLASTIN TIME [id number] 05:55:00 Test Item Value Reference Range Interpretation Comments THROMBOPLASTIN TIME 37.9 Seconds 25.0-39.5 N Therape utic Range: PARTIAL (test code = 50.4 - 88.3 Seconds PTT) Effective 09/04/2018 CBC W/AUTO [id number] 05:44:00 Test Item Value Reference Range Interpretation [...] COMMENTS: To be done morning of Heart [id number] 05:44:00 Test Item Value Reference Range Interpretation Comments GLUBED (test code = 92 MG/DL 70-110 N Performe d by certified GLUBED) braiding operator at [facility] HGBA1C%2020-08-10 17:22:00 Test Item Value Reference Range Interpretation Comments HGBA1C% (test code = HGBA1C%) 6.6 %A1C 4.8-6.0 H [id number] 17:17:00 Test Item Value Reference Range Interpretation Comments GLUBED (test code = 118 MG/DL 70-110 H Performe d by certified GLUBED) braiding operator at [facility] TSH REFLEX TO [id number] 15:37:00 Test Item Value Reference Range Interpretation Comments TSH REFLEX TO FT4 (test code = 3.19 IU/mL 0.42-5.47 N TSHREFLEX) [id number]-[id number] 15:37:00 Test Item Value Reference Range Interpretation [...] y by method. COVID 19 Asymptomatic IH [id number] 11:35:00 Test Item Value Reference Range Interpretation [...] y tests. COMMENTS: If not done this rottwyoihCAAUQDBO-A9607-77-22 11:31:00 Test Item Value Reference Range Interpretation [...] titative results may babak y by method. X-[id number] 11:28:00 Test Item Value Reference Range Interpretation Comments D-DIMER (test 1089 ng/mlFEU See_Comment HH Critical resu lt called to code = Rima GERMAN.JJ1 at 04 1808/10/20Nurse r ead back result [...] to interpret this result as normal/abnormal . BQYQDQ1903-87-21 10:48:00 Test Item Value Reference Range Interpretation Comments GLUBED (test code = 158 MG/DL 70-110 H Performe d by certified GLUBED) braiding operator at [facility] B-TYPE NATRIURETIC HZPFJBS4381-12-12 08:19:00 Test Item Value Reference Range Interpretation Comments B-TYPE NATRIURETIC PEPTIDE (test 508.0 PG/ML 0-100 H code = BNP) BASIC METABOLIC [id number] 08:11:00 Test Item Value Reference Range Interpretation [...] 9.1 mg/dL 8.0-10.5 N CA) HEPATIC FUNCTION [id number] 08:11:00 Test Item Value Reference Range Interpretation [...] 174 IUnit/L 20-125 H code = ALKP) [id number] 08:11:00 Test Item Value Reference Range Interpretation Comments MAGNESIUM (test code = MAG) 1.80 mg/dL 1.80-2.40 N [id number]-[id number] 08:11:00 Test Item Value Reference Range Interpretation [...] may babak y by method. BASIC METABOLIC [id number] 08:09:00 Test Item Value Reference Range Interpretation [...] code = CA) mg/dL 8.0-10.5 HEPATIC FUNCTION [id number] 08:09:00 Test Item Value Reference Range Interpretation Comments TOTAL PROTEIN (test code = PROT) g/dL 6.4-8.2 ALBUMIN (test code = ALB) g/dL 3.4-5.0 BILIRUBIN TOTAL (test code = BILT) mg/dL 0.0-1.0 BILIRUBIN DIRECT (test code = BILD) MG/DL 0.0-0.30 SGOT/AST (test code = AST) IUnit/L 15-37 SGPT/ALT (test code = ALT) IUnit/L 30-65 ALKALINE PHOSPHATASE TOTAL (test IUnit/L 20-125 code = ALKP) [id number] 08:09:00 Test Item Value Reference Range Interpretation Comments MAGNESIUM (test code = MAG) mg/dL 1.80-2.40 BLBRNJLC-[id number] 08:09:00 Test Item Value Reference Range Interpretation [...] results may babak y by method. PROTHROMBIN [id number] 08:06:00 Test Item Value Reference Range Interpretation [...] (to prevent recurrent infar ct). THROMBOPLASTIN TIME [id number] 08:06:00 Test Item Value Reference Range Interpretation Comments THROMBOPLASTIN TIME 44.5 Seconds 25.0-39.5 H Therape utic Range: PARTIAL (test code = 50.4 - 88.3 Seconds PTT) Effective 09/04/2018 CBC W/AUTO [id number] 07:58:00 Test Item Value Reference Range Interpretation [...] NO = MDIFF) - XR CHEST 1 [id number] 07:57:00 [facility] : 1960 Sex: M FAX: Todd Jacobo MD [phone] Malo: [address]: REG FAX: Martínez Dash NP [phone] [facility] 1960 Age[facility]S: 60[facility]M [address] [place] [address] Blvd Unit #: [id number] Loc: [place] [address] Phys: Martínez Dash NP Acct: [id number] Dis Date: Status: REG ER PHONE #: [phone] Exam Date: 08/10/2020752 FAX #: [phone] Reason: Chest Pain EXAMS: CPT CODE: [id number] XR CHEST 1 V 50019 Chest single view 08/10/2020 HISTORY: Chest pain. Comparison is made to 05/21/2018 FINDINGS: Pacemaker and midline sternotomy wires are stable. The lungs are hypoinflated. No consolidation or pleural effusion is present. No vascular congestion or interstitial edema is present. Heart size is mildly enlarged. Aorta is unchanged. IMPRESSION: Hypoinflated lungs. No acute cardiopulmonary process. SL:[id number] at 0757 Reported and signed by: Khai Kruse M.D. CC: Todd Jacobo MD; Martínez Dash NP Technologist: RT Ann(R) Trnscrd Date/Time/By: 08/10/2020 (0757) : By: [email or web address] [facility] Print D/T: S: 08/10/2020 (0800) PAGE 1 Signed Report COMPREHENSIVE METABOLIC [id number] 18:02:00 Test Item Value Reference Range Interpretation [...] 50-136 H TOTAL (test code = ALKP) [id number] 18:02:00 Test Item Value Reference Range Interpretation Comments AMYLASE (test code = SERGIO) 82 Unit/L 25-115 N [id number] 18:02:00 Test Item Value Reference Range Interpretation Comments LIPASE (test code = LIP) 185 Unit/L 114-286 N COMPREHENSIVE METABOLIC [id number] 17:56:00 Test Item Value Reference Range Interpretation [...] TOTAL Unit/L 50-136 (test code = ALKP) [id number] 17:56:00 Test Item Value Reference Range Interpretation Comments AMYLASE (test code = SERGIO) Unit/L 25-115 [id number] 17:56:00 Test Item Value Reference Range Interpretation Comments LIPASE (test code = LIP) 185 Unit/L 114-286 N CBC W/AUTO [id number] 17:46:00 Test Item Value Reference Range Interpretation [...] CRITERIA MDIFF) - CT ABD PELVIS W/O [id number] 17:46:00 Name: FAITH VANCE [facility] : 1960 Age/S: 58 / M [address] Unit #: [id number] Loc: [place] [address] Phys: Nila Chester MD Acct: [id number] Dis Date: Status: REG ER PHONE #: [phone] Exam Date: 01/03/2019 9212 FAX #: Reason: llq EXAMS: CPT: [id number] CT ABDPELVIS W/O CONT 99947 Location of dictation: B2 CT abdomen and [...] VANCE : 1960 Age/S: 58 / M [address] Unit #: [id number] Loc: [place] [address] Phys: Nila Chester MD Acct: [id number] Dis Date: Status: REG ER PHONE #: [phone] Exam Date: 01/03/2019 1736 FAX #: Reason: llq EXAMS: CPT: [id number] CT ABD PELVIS W/O CONT 90211 <Continued> at 1746 Reported and signed by: Renuka Willett M.D. CC: Nila Chester MD Technologist:Tavon Jurado, RT(R)(CT)(MRI) CTDI: DLP: Trnscb Date/Time: 01/03/2019 (1746) t.SDR.PXC Orig Print D/T: S: 01/03/2019 (4269) PAGE 2 Signed ReportBedside Jiaudla0983-05-59 11:47:00 Test Item Value Reference Range Interpretation Comments Bedside Glucose (test code = 67902-2) 155 70-120 H Meter ID: [id number] [facility] Hospitalodium Muuex4477-22-08 08:31:00 Test Item Value Reference Range Interpretation Comments Sodium Level (test code = 2951-2) 139 136-145 [facility] Noukx1066-33-29 08:31:00 Test Item Value Reference Range Interpretation Comments Potassium Level (test code = 2823-3) 4.0 3.5-5.1 [facility] HospitalChloride Quycv5158-64-92 08:31:00 Test Item Value Reference Range Interpretation Comments Chloride Level (test code = 2075-0) 106 98-107 [facility] HospitalCarbon Dioxide Vzblv0922-63-93 08:31:00 Test Item Value Reference Range Interpretation Comments Carbon Dioxide Level (test code = 25 -29 2027-) [facility] HospitalAnion Emm5378-01-79 08:31:00 Test Item Value Reference Range Interpretation Comments Anion Gap (test code = 71762-0) 12.0 8-16 [facility] HospitalBlood Urea Inrmrbxi0007-44-01 08:31:00 Test Item Value Reference Range Interpretation Comments Blood Urea Nitrogen (test code = 12-14 3094-0) [facility] HospitalCreatinine2018-06-08 08:31:00 Test Item Value Reference Range Interpretation Comments Creatinine (test code = 2160-0) 0.72 0.72-1.25 [facility] HospitalBUN/Creatinine Kmtln2555-73-86 08:31:00 Test Item Value Reference Range Interpretation Comments BUN/Creatinine Ratio (test code = 11-13 3097-3) [facility] HospitalEstimat Glomerular Filtration Ukwq8568-06-68 08:31:00 Test Item Value Reference Range Interpretation Comments Estimat Glomerular Filtration Rate 60- >60 (test code = 11218-3) Ranges were taken from the National Kidney Disease Education Program and the National Kidney Foundation literature.Reference ranges:60 or greater: Kijeft75- 59 (for 3 consecutive months): Chronic kidneydisease 15 or less: Kidney failure [facility] HospitalGlucose Qenli4890-58-30 08:31:00 Test Item Value Reference Range Interpretation Comments Glucose Level (test code = IKR7496) 195 74-118 H [facility] HospitalCalcium Ndcwl4218-11-87 08:31:00 Test Item Value Reference Range Interpretation Comments Calcium Level (test code = 19756-0) 9.0 8.4-10.2 [facility] HospitalWhite Blood Xeqxw6961-15-61 08:12:00 Test Item Value Reference Range Interpretation Comments White Blood Count (test code = 6690-2) 6.06 4.8-10.8 [facility] HospitalRed Blood Dyxem1826-00-66 08:12:00 Test Item Value Reference Range Interpretation Comments Red Blood Count (test code = 789-8) 4.22 4.3-5.7 L [facility] HospitalHemoglobin2018-06-08 08:12:00 Test Item Value Reference Range Interpretation Comments Hemoglobin (test code = 07494-2) 12.5 14.0-18.0 L [facility] HospitalHematocrit2018-06-08 08:12:00 Test Item Value Reference Range Interpretation Comments Hematocrit (test code = 4544-3) 36.2 38.2-49.6 L [facility] HospitalMean Corpuscular Qgqivq4578-16-32 08:12:00 Test Item Value Reference Range Interpretation Comments Mean Corpuscular Volume (test code = 85.8 81-99 787-2) [facility] HospitalMean Corpuscular Jonkrffcmn2680-20-00 08:12:00 Test Item Value Reference Range Interpretation Comments Mean Corpuscular Hemoglobin (test code 29.6 28-32 = 785-6) [facility] HospitalMean Corpuscular Hemoglobin Drdsyzz2964-04-33 08:12:00 Test Item Value Reference Range Interpretation Comments Mean Corpuscular Hemoglobin Concent 34.5 31-35 (test code = 786-4) [facility] HospitalRed Cell Distribution Tymhu1445-86-82 08:12:00 Test Item Value Reference Range Interpretation Comments Red Cell Distribution Width (test code 14.2 11.7-14.4 = 67699-3) [facility] HospitalPlatelet Swzyy2078-61-15 08:12:00 Test Item Value Reference Range Interpretation Comments Platelet Count (test code = 777-3) 263 140-360 [facility] HospitalNeutrophils (%) (Auto)2017-10-27 08:12:00 Test Item Value Reference Range Interpretation Comments Neutrophils (%) (Auto) (test code = 51.2 38.7-80.0 69853-8) [facility] HospitalLymphocytes (%) (Auto)2017-10-27 08:12:00 Test Item Value Reference Range Interpretation Comments Lymphocytes (%) (Auto) (test code = 33.7 18.0-39.1 736-9) [facility] HospitalMonocytes (%) (Auto)2017-10-27 08:12:00 Test Item Value Reference Range Interpretation Comments Monocytes (%) (Auto) (test code = 9.1 4.4-11.3 5905-5) [facility] HospitalEosinophils (%) (Auto)2017-10-27 08:12:00 Test Item Value Reference Range Interpretation Comments Eosinophils (%) (Auto) (test code = 4.8 0.0-6.0 713-8) [facility] HospitalBasophils (%) (Auto)2017-10-27 08:12:00 Test Item Value Reference Range Interpretation Comments Basophils (%) (Auto) (test code = 0.7 0.0-1.0 706-2) [facility] HospitalIM GRANULOCYTES %2017-10-27 08:12:00 Test Item Value Reference Range Interpretation Comments IM GRANULOCYTES % (test code = IM 0.5 0.0-1.0 GRANULOCYTES %) [facility] HospitalNeutrophils # (Auto)2017-10-27 08:12:00 Test Item Value Reference Range Interpretation Comments Neutrophils # (Auto) (test code = 3.1 2.1-6.9 751-8) [facility] HospitalLymphocytes # (Auto)2017-10-27 08:12:00 Test Item Value Reference Range Interpretation Comments Lymphocytes # (Auto) (test code = 2.0 1.0-3.2 88598-2) [facility] HospitalMonocytes # (Auto)2017-10-27 08:12:00 Test Item Value Reference Range Interpretation Comments Monocytes # (Auto) (test code = 742-7) 0.6 0.2-0.8 [facility] HospitalEosinophils # (Auto)2017-10-27 08:12:00 Test Item Value Reference Range Interpretation Comments Eosinophils # (Auto) (test code = 0.3 0.0-0.4 711-2) [facility] HospitalBasophils # (Auto)2017-10-27 08:12:00 Test Item Value Reference Range Interpretation Comments Basophils # (Auto) (test code = 704-7) 0.0 0.0-0.1 [facility] HospitalAbsolute Immature Granulocyte (xpcf8628-26-60 08:12:00 Test Item Value Reference Range Interpretation Comments Absolute Immature Granulocyte (auto 0.03 0-0.1 (test code = Absolute Immature Granulocyte (auto) [facility] HospitalCreatine Kinase VT7284-65-88 15:14:00 Test Item Value Reference Range Interpretation Comments Creatine Kinase MB (test code = 3.90 0-5.0 22397-1) [facility] HospitalTroponin K0565-64-27 15:14:00 Test Item Value Reference Range Interpretation Comments Troponin I (test code = WSU6508) 0.054 0-0.300 [facility] HospitalCreatine Biubeb5488-34-83 15:07:00 Test Item Value Reference Range Interpretation Comments Creatine Kinase (test code = 2157-6) 297 30-200 H [facility] HospitalHemoglobin A1c Qekacxy6587-35-77 08:04:00 Test Item Value Reference Range Interpretation Comments Hemoglobin A1c Percent (test code = 12.6 4.0-7.0 H Hemoglobin A1c Percent) [facility] HospitalTriglycerides Ggpmo7544-25-84 06:57:00 Test Item Value Reference Range Interpretation Comments Triglycerides Level (test code = 200 0-149 H 2571-8) [facility] HospitalCholesterol Rzvbw5799-64-60 06:57:00 Test Item Value Reference Range Interpretation Comments Cholesterol Level (test code = 2093-3) 239 0-199 H Less than 200 mg/dL Low Gftj287 - 239 mg/dL Borderline Izad235 mg/dl and greater High RiskFaith Community HospitalLDL Rtoeovfjtcg9172-65-40 06:57:00 Test Item Value Reference Range Interpretation Comments LDL Cholesterol (test code = 2089-1) 164 60-130 H [facility] HospitalHDL Srfrfkrpxvz7632-90-01 06:57:00 Test Item Value Reference Range Interpretation Comments HDL Cholesterol (test code = 2085-9) 35 40-60 L [facility] HospitalCholesterol/HDL Bistr5679-89-92 06:57:00 Test Item Value Reference Range Interpretation Comments Cholesterol/HDL Ratio (test code = 6.8 3.9-4.7 H 9830-1) [facility] HospitalUrine Opiates Lxxoij4371-40-19 16:18:00 Test Item Value Reference Range Interpretation Comments Urine Opiates Screen (test code = NEGATIVE NEGATIVE 70361-6) [facility] HospitalUrine Barbiturates Gtompo0695-47-74 16:18:00 Test Item Value Reference Range Interpretation Comments Urine Barbiturates Screen (test code NEGATIVE NEGATIVE = 583382852) [facility] HospitalUrine Phencyclidine Kvlubu4872-29-44 16:18:00 Test Item Value Reference Range Interpretation Comments Urine Phencyclidine Screen (test NEGATIVE NEGATIVE code = 51404-9) [facility] HospitalUrine Amphetamines Ioreqf4315-27-06 16:18:00 Test Item Value Reference Range Interpretation Comments Urine Amphetamines Screen (test code NEGATIVE NEGATIVE = 41290-9) [facility] HospitalUrine Methamphetamines Hisdyf1952-35-63 16:18:00 Test Item Value Reference Range Interpretation Comments Urine Methamphetamines Screen (test NEGATIVE NEGATIVE code = Urine Methamphetamines Screen) [facility] HospitalUrine Benzodiazepines Ffsked2548-88-01 16:18:00 Test Item Value Reference Range Interpretation Comments Urine Benzodiazepines Screen (test NEGATIVE NEGATIVE code = 54774-5) [facility] HospitalUrine Cocaine Hivfja1332-61-41 16:18:00 Test Item Value Reference Range Interpretation Comments Urine Cocaine Screen (test code = NEGATIVE NEGATIVE 3398-5) [facility] HospitalUrine Cannabinoids Sanray0250-00-61 16:18:00 Test Item Value Reference Range Interpretation Comments Urine Cannabinoids Screen (test code NEGATIVE NEGATIVE = 90262-7) THESE RESULTS ARE FOR MEDICAL TREATMENT ONLYTHIS REPORT CONTAINS UNCONFIRMED SCREENING RESULTS*POSITIVE RESULTS WILL BE CONFIRMED BY REFERENCE LAB UPON REQUEST CUT-OFFDRUG CLASS CONCENTRATION ng/mLAmphetamines 1000Methamphetamines 1000Cocaine 300Opiate 300Phencyclidine 25Cannabinoid 50Barbiturates 300Benzodiazepine 300Methadone 300[facility] CenterU[facility] Methadone Bibwzz0871-78-92 16:18:00 Test Item Value Reference Range Interpretation Comments Urine Methadone Screen (test code = NEGATIVE NEGATIVE 96383-5) THESE RESULTS ARE FOR MEDICAL TREATMENT ONLYTHIS REPORT CONTAINS UNCONFIRMED SCREENING RESULTS*POSITIVE RESULTS WILL BE CONFIRMED BY REFERENCE LAB UPON REQUEST CUT-OFFDRUG CLASS CONCENTRATION ng/mLAmphetamines 1000Methamphetamines 1000Cocaine Metabolite 300Opiate 300Phencyclidine 80Vrdkqedhbyn85Vwlalmlapdbm 300Benzodiazepine 300Methadone 300[facility] HospitalProthrombin Bkrl3182-02-87 14:13:00 Test Item Value Reference Range Interpretation Comments Prothrombin Time (test code = 5902-2) 13.6 11.9-14.5 [facility] HospitalProthromb Time International Jsfwh1205-61-98 14:13:00 Test Item Value Reference Range Interpretation Comments Prothromb Time International Ratio 1.13 (test code = 6301-6) Oral Anticoagulant Therapy INR Values:1. Low Intensity Therapy 1.5 - 2.02. Moderate Intensity Therapy 2.0 - 3.03. High Intensity Therapy(1) 2.5 - 3.54. High Intensity Therapy(2) 3.0 - 4.05. Panic ValueINR > 5.0[facility] HospitalActivated Partial Thromboplast Qszf0376-45-95 14:13:00 Test Item Value Reference Range Interpretation Comments Activated Partial Thromboplast Time 27.6 23.8-35.5 (test code = 05519-3) [facility] HospitalAlanine Aminotransferase (ALT/SGPT)2017-10-23 14:10:00 Test Item Value Reference Range Interpretation Comments Alanine Aminotransferase (ALT/SGPT) 34 0-55 (test code = 1742-6) [facility] HospitalTotal Uhioipo9981-43-50 14:10:00 Test Item Value Reference Range Interpretation Comments Total Protein (test code = 2885-2) 7.3 6.5-8.1 [facility] HospitalAlbumin2018-06-04 14:10:00 Test Item Value Reference Range Interpretation Comments Albumin (test code = 1751-7) 4.0 3.5-5.0 [facility] HospitalGlobulin2018-06-04 14:10:00 Test Item Value Reference Range Interpretation Comments Globulin (test code = 14752-9) 3.3 2.3-3.5 [facility] HospitalAlbumin/Globulin Gceml2212-85-81 14:10:00 Test Item Value Reference Range Interpretation Comments Albumin/Globulin Ratio (test code = 1.2 0.8-2.0 1759-0) [facility] HospitalAlkaline Dodnqxrgipj0477-48-16 14:10:00 Test Item Value Reference Range Interpretation Comments Alkaline Phosphatase (test code = 109 40-150 6768-6) [facility] HospitalB-Type Natriuretic Ruuhudl0486-62-19 14:10:00 Test Item Value Reference Range Interpretation Comments B-Type Natriuretic Peptide (test code = 92.8 0-100 62237-7) [facility] HospitalAmylase Ixerg3100-61-98 14:10:00 Test Item Value Reference Range Interpretation Comments Amylase Level (test code = 1798-8) 126 25-125 H [facility] HospitalLipase2018-06-04 14:10:00 Test Item Value Reference Range Interpretation Comments Lipase (test code = 3040-3) 98 8-78 H [facility] HospitalTotal Smdoeywxs7418-10-30 14:10:00 Test Item Value Reference Range Interpretation Comments Total Bilirubin (test code = 1975-2) 0.6 0.2-1.2 [facility] HospitalAspartate Amino Transf (AST/SGOT)2017-10-23 14:10:00 Test Item Value Reference Range Interpretation Comments Aspartate Amino Transf (AST/SGOT) (test 36 5-34 H code = Aspartate Amino Transf (AST/SGOT)) [facility] HospitalD-Dimer Quantitative (PE/DVT)2017-10-23 14:02:00 Test Item Value Reference Range Interpretation Comments D-Dimer Quantitative (PE/DVT) (test 0.49 0.00-0.45 H code = 14173-7) [facility] HospitalDirect Ygtgrzgxg3772-08-57 13:47:00 Test Item Value Reference Range Interpretation Comments Direct Bilirubin (test code = 86547-3) 0.2 0.0-5.0 [facility] HospitalMagnesium Lbbbd5486-80-11 06:52:00 Test Item Value Reference Range Interpretation Comments Magnesium Level (test code = 83656-0) 1.5 1.3-2.1 [facility] HospitalUrine MNX7760-25-15 05:09:00 Test Item Value Reference Range Interpretation Comments Urine WBC (test code = 5821-4) NONE 0-5 [facility] HospitalUrine SRG8624-21-77 05:09:00 Test Item Value Reference Range Interpretation Comments Urine RBC (test code = 26714-2) NONE 0-5 [facility] HospitalUrine Aevtudnq7359-72-48 05:09:00 Test Item Value Reference Range Interpretation Comments Urine Bacteria (test code = 77062-1) NONE NONE [facility] HospitalUrine Epithelial Kxzao0706-50-83 05:09:00 Test Item Value Reference Range Interpretation Comments Urine Epithelial Cells (test code = NONE NONE 12218-9) [facility] HospitalUrine Qgpct7409-47-35 04:46:00 Test Item Value Reference Range Interpretation Comments Urine Color (test code = 5778-6) YELLOW YELLOW [facility] HospitalUrine Awpxida7927-65-76 04:46:00 Test Item Value Reference Range Interpretation Comments Urine Clarity (test code = 70607-1) CLEAR CLEAR [facility] HospitalUrine Specific Ngpmabm0363-27-95 04:46:00 Test Item Value Reference Range Interpretation Comments Urine Specific [place] (test code = 1.010 1.010-1.025 5811-5) [facility] HospitalUrine nD0347-67-72 04:46:00 Test Item Value Reference Range Interpretation Comments Urine pH (test code = 07211-2) 8 5-7 H [facility] HospitalUrine Leukocyte Sojbeqgz3795-65-07 04:46:00 Test Item Value Reference Range Interpretation Comments Urine Leukocyte Esterase (test code NEGATIVE NEGATIVE = 5799-2) [facility] HospitalUrine Gqqklgc3277-27-65 04:46:00 Test Item Value Reference Range Interpretation Comments Urine Nitrite (test code = 69521-6) NEGATIVE NEGATIVE [facility] HospitalUrine Ounarxj7180-80-25 04:46:00 Test Item Value Reference Range Interpretation Comments Urine Protein (test code = 5804-0) NEGATIVE NEGATIVE [facility] HospitalUrine Glucose (UA)2017-03-05 04:46:00 Test Item Value Reference Range Interpretation Comments Urine Glucose (UA) (test code = NEGATIVE NEGATIVE 2349-9) [facility] HospitalUrine Pjxinda8793-18-87 04:46:00 Test Item Value Reference Range Interpretation Comments Urine Ketones (test code = 33297-1) NEGATIVE NEGATIVE [facility] HospitalUrine Qyjskmgsmmrw7957-22-66 04:46:00 Test Item Value Reference Range Interpretation Comments Urine Urobilinogen (test code = 0.2 0.2-1 81266-1) [facility] HospitalUrine Hzdpbtksh4328-74-34 04:46:00 Test Item Value Reference Range Interpretation Comments Urine Bilirubin (test code = 1978-6) NEGATIVE NEGATIVE [facility] HospitalUrine Wjhwd5214-91-79 04:46:00 Test Item Value Reference Range Interpretation Comments Urine Blood (test code = 65011-7) 2+ NEGATIVE H [facility] HospitalCTA BRAIN [facility] [address] [address] PatientName: FAITH VANCE MR #: [id number] : 1960 Age/Sex: 57/M Req #: [id number] Adm Physician: ALEXIS COX MD Ordered by: ALEXIS COX MD Report #: [id number] Location: [facility] Room/Bed: [place] [address] Procedure: [id number] CT/CTA BRAIN Exam Date: 10/24/17 Exam Time: [...] COPY TO: ALEXIS COX MDCT BRAIN [address] [place] [address] PatientName: FAITH VANCE MR #: [id number] : 1960 Age/Sex: 57/M Req #: [id number] Adm Physician: Ordered by: KHAI WAHL MD Report #: [id number] Location: ER Room/Bed: __ Procedure: [id number] CT/CT BRAIN WO Exam Date: 10/23/17 Exam [...] MD 164 Transcribed By: ANDREE on 10/23/17 1643 COPY TO: KHAI WAHL V MDCTA CHEST [place] [address] PatientName: FAITH VANCE MR #: [id number] : 1960 Age/Sex: 57/M Req #: [id number] Adm Physician: Ordered by: KHAI WAHL MD Report #: [id number] Location: ER Room/Bed: __ Procedure: [id number] CT/CTA CHEST Exam Date: 10/23/17 Exam Time: [...] reviewed and is below limits set by [facility]). FINDINGS: Lines and Tubes: Pacemaker with [...] 10/23/17 1621 COPY TO: KHAI WAHL V [facility] (PORTABLE) [place] [address] PatientName: FAITH VANCE MR #: [id number] : 1960 Age/Sex: 57/M Req #: [id number] Adm Physician: Ordered by: KHAI WAHL MD Report #: [id number] Location: ER Room/Bed: __ Procedure: [id number] DX/CHEST SINGLE (PORTABLE) Exam Date: 10/23/17 Exam [...] 10/23/17 1443 COPY TO: KHAI WAHL [address] [place] [address] PatientName: FAITH VANCE MR #: [id number] : 1960 Age/Sex: 56/M Req #: [id number] Adm Physician: Ordered by: JACQUELYN MONTES DE OCA MD Report #: [id number] Location: ER Room/Bed: Procedure: [id number] CT/CT BRAIN WO Exam Date: Exam Time: [...] MONTES DE OCA MDCT CERVICAL SPINE WO [place] [address] PatientName: FAITH VANCE MR #: [id number] : 1960 Age/Sex: 56/M Req #: [id number] Adm Physician: Ordered by: JACQUELYN MONTES DE OCA MD Report #: [id number] Location: ER Room/Bed: Procedure: [id number] CT/CT CERVICAL SPINE WO Exam Date: Exam [...] 04/04/17206 COPY TO: JACQUELYN MONTES DE OCA [facility] (PORTABLE) [place] [address] Patient Name: FAITH VANCE MR #: [id number] : 1960 Age/Sex: 56/M Req #: [id number] Adm Physician: Ordered by: JACQUELYN MONTES DE OCA MD Report #: [id number] Location: ER Room/Bed: Procedure: [id number] DX/CHEST SINGLE (PORTABLE) Exam Date: 04/04/17 Exam [...] OCA MDHIP RIGHT 2-3 VW (+/- PELVIS) [place] [address] PatientName: FAITH VANCE MR #: [id number] : 1960 Age/Sex: 56/M Req #: [id number] Adm Physician: Ordered by: JACQUELYN MONTES DE OCA MD Report #: [id number] Location: ER Room/Bed: Procedure: [id number] DX/HIP RIGHT 2-3 VW (+/- PELVIS) Exam [...] DE OCA MDSP LUMBAR, COMPLETE MIN 4VW [place] [address] PatientName: FAITH VANCE MR #: [id number] : 1960 Age/Sex: 56/M Req #: [id number] Adm Physician: Ordered by: JACQUELYN MONTES DE OCA MD Report #: [id number] Location: ER Room/Bed: Procedure: [id number] DX/SP LUMBAR, COMPLETE MIN 4VW Exam Date: [...] JACQUELYN MONTES DE OCA MDUS ABDOMEN COMPLETE [place] [address] PatientName: FAITH VANCE MR #: [id number] : 1960 Age/Sex: 56/M Req #: [id number] [facility] Physician: NICHELLE PALACIOS MD Ordered by: SCOTT AMIN MD Report #: [id number] Location: [facility] Room/Bed: [place] [address] Procedure: [id number] US/US ABDOMEN COMPLETE Exam Date: 03/08/17 Exam Time: 0913 REPORT STATUS: Signed PROCEDURE: ABDOMINAL ULTRASOUND COMPARISON: [...] on 03/08/17 1040 COPY TO: SCOTT AMIN SINGLE (PORTABLE) [place] [address] PatientName: FAITH VANCE MR #: [id number] : 1960 Age/Sex: 56/M Req #: [id number] Adm Physician: Ordered by: JACQUELYN MONTES DE OCA MD Report #: [id number] Location: ER Room/Bed: Procedure: [id number] DX/CHEST SINGLE (PORTABLE) Exam Date: 03/05/17 Exam Time: 0445 REPORT STATUS: SignedCHEST SINGLE (PORTABLE), 03/05/2017 4:15 AM Technique: CHEST SINGLE (PORTABLE) Comparison: 01/04/2017 Clinical history: Chest pain Findings: Status post median sternotomy with broken superior sternotomywire. See impression. Impression: Low lung volumes result in accentuation of the cardiomediastinal silhouette and bibasilar vascular crowding. No pleural effusion or pneumothorax. Signed by: Dr Marco A Talbot MD on 03/05/2017 5:35 AM Dictated By: MARCO A TALBOT MD 4 Transcribed By: ANDREE on 03/05/17534 COPY TO: JACQUELYN MONTES DE OCA MD
[2022-07-14 17:52] LABS: Absolute Lymphocytes (CBC) 1.1 K/uL (0.7-4.9); Hematocrit 32.3 % (39.6-49.0); Lymphocytes % 16.9 % (15.3-44.8); MCV 82.5 fL (80-100); MPV 7.3 fL (7.6-11.3); RBC Red Blood Cell Count 3.92 M/uL (4.33-5.43)
[2022-07-14] MEDS ORDERED: ONDANSETRON 4 MG/2 ML VIAL ONE (17:52)
[2022-07-14] MEDS ORDERED: MORPHINE 4 MG/ML SYR ONE (17:52)
[2022-07-14 17:53] LABS: Protime INR 1.4
--- NOTE | 2022-07-14 18:05 | RAD REPORT ---
EXAM DESCRIPTION: RAD - Chest Single View - 07/14/2022 5:30 pm CLINICAL HISTORY: CHEST PAIN COMPARISON: Chest Single View dated 07/11/2022; Chest Single View dated 07/08/2022; Chest Single View dated 07/05/2022; Chest Single View dated 07/02/2022; Chest Abd Pelvis Wo Con dated 07/11/2022 FINDINGS: Lines: None. Lungs: Prominence of the pulmonary interstitium. Pleural: Small left pleural effusion. Possible small right effusion Cardiac: Stable cardiomegaly. Pacemaker. Sternotomy. Mediastinum: Within normal limits. Bones: No acute fractures. Other: None IMPRESSION: Similar bilateral pleural effusions which may be secondary to edema.
[2022-07-14 18:10] LABS: Magnesium 1.9 mg/dL (1.6-2.4); Potassium 3.8 mmol/L (3.5-5.1); Troponin High Sensitivity 31.7 pg/mL (<58.9)
[2022-07-14] MEDS ORDERED: FUROSEMIDE 40 MG/4 ML VIAL ONE (19:35)
[2022-07-14] MEDS ORDERED: FENTANYL CITR 100 MCG/2 ML ONE (20:03)
--- NOTE | 2022-07-14 22:57 | ER ---
Nurse's Notes [facility] Name: Ernie Rooney Age: 62 yrs Sex: Male : 1960 Arrival Date: 07/14/2022 Time: 17:19 Bed 16 Private MD: Diagnosis: Chest pain, unspecified;Unspecified combined systolic (congestive) and diastolic (congestive) heart failure Presentation: 07/14 17:20 Chief complaint: EMS states: patient called EMS for chest pain, was here a few days ago ko1 for the same chest pain. Coronavirus screen: At this time, the client does not indicate any symptoms associated with coronavirus-19. Ebola Screen: No symptoms or risks identified at this time. Initial Sepsis Screen: Does the patient meet any 2 criteria? No. Patient's initial sepsis screen is negative. Does the patient have a suspected source of infection? No. Patient's initial sepsis screen is negative. Risk Assessment: Do you want to hurt yourself or someone else? Patient reports no desire to harm self or others. Onset of symptoms was July 14, 2022. 17:20 Method Of Arrival: EMS: [facility] ko1 17:20 Acuity: TONE 3 ko1 Triage Assessment: 17:21 General: Appears in no apparent distress. uncomfortable, Behavior is calm, cooperative, ko1 appropriate for age. Pain: Complains of pain in chest. Historical: - Allergies: 17:21 Nitroglycerin; ko1 - PMHx: 17:21 Arthritis; Back pain; CAD; CHF; CVA; Depression; Fibromyalgia; GERD; Hyperlipidemia; ko1 Hypertensive disorder; Hypothyroidism; IDDM; Left sided weakness from previous CVA; Myocardial infarction; Pacemaker; - PSHx: 17:21 bilat BKA's; bypass; CABG; ko1 - Immunization history:: Adult Immunizations unknown. - Social history:: Smoking status: Patient/guardian denies using tobacco. Screenin:15 [facility] ED Fall Risk Assessment (Adult) History of falling in the last 3 months, ko1 including since admission No falls in past 3 months (0 pts) Confusion or Disorientation No (0 pts) Intoxicated or Sedated No (0 pts) Impaired Gait Yes (1 pt) Mobility Assist Device Used Yes (1 pt) Altered Elimination No (0 pt) Score/Fall Risk Level 0 - 2 = Low Risk Oriented to surroundings, Maintained a safe environment, Educated pt \T\ family on fall prevention, incl call for assistance when getting out of bed, Assessed \T\ reinforced patient's understanding of fall precautions, Provided non-skid footwear, Hourly rounding (assess needs \T\ fall precautionary measures) done, Used ambulatory aids as needed (educated on \T\ assisted with), Used gait belt as appropriate. Abuse screen: Denies threats or abuse. Denies injuries from another. Nutritional screening: No deficits noted. Tuberculosis screening: No symptoms or risk factors identified. Assessment: 17:30 General: Appears in no apparent distress. uncomfortable, Behavior is calm, cooperative, ko1 appropriate for age. Pain: Complains of pain in chest. Neuro: No deficits noted. Cardiovascular: Reports chest pain. Respiratory: No deficits noted. GI: No deficits noted. : No deficits noted. EENT: No deficits noted. Derm: No deficits noted. Musculoskeletal: No deficits noted. 19:51 General: Appears in no apparent distress. Pain: Complains of pain in chest Pain mb9 currently is 10 out of 10 on a pain scale. Quality of pain is described as sharp, shooting, Is continuous. Neuro: Level of Consciousness is awake, alert, obeys commands, Oriented to person, place, time, situation, Appropriate for age. Cardiovascular: Heart tones S1 S2 present Rhythm is Respiratory: Airway is patent Respiratory effort is even, unlabored, Respiratory pattern is regular, symmetrical. Derm: Skin is pink, warm \T\ dry. 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 21:13 Reassessment: No changes from previously documented assessment. Patient and/or family mb9 updated on plan of care and expected duration. Pain level reassessed. Patient is alert, oriented x 3, equal unlabored respirations, skin warm/dry/pink. Vital Signs: 17:15 BP 157 / 95; Pulse 102; Resp 18; Temp 98(O); Pulse Ox 98% on 2 lpm NC; Weight 66.68 kg; ko1 Height 5 ft. 7 in. (170.18 cm); Pain 10/10; 17:30 BP 138 / 76; Pulse 91; Resp 18; Pulse Ox 98% ; ko1 17:45 BP 101 / 59; Pulse 95; Resp 16; Pulse Ox 98% ; ko1 18:00 BP 117 / 73; Pulse 92; Resp 18; Pulse Ox 97% on R/A; ko1 18:15 BP 121 / 72; Pulse 94; Resp 16; Pulse Ox 97% on R/A; ko1 19:53 BP 113 / 68; Pulse 91; Resp 18; Pulse Ox 99% ; mb9 21:13 BP 109 / 67; Pulse 87; Resp 16; Pulse Ox 97% on R/A; mb9 17:15 Body Mass Index 23.02 (66.68 kg, 170.18 cm) ko1 ED Course: 17:19 Patient arrived in ED. ko1 17:19 Malka Samuels, RN is Primary Nurse. ko1 17:20 Mustapha Joe PA is PHCP. cp 17:20 Regan Hoff DO is Attending Physician. cp 17:21 Triage completed. ko1 17:21 Arm band placed on left wrist. ko1 17:45 Basic Metabolic Panel Sent. ko1 17:45 CBC with Diff Sent. ko1 17:45 Magnesium Sent. ko1 17:45 Inserted saline lock: 20 gauge in left forearm, using aseptic technique. Blood ko1 collected. 17:46 NT PRO-BNP Sent. ko1 17:46 PT-INR Sent. ko1 17:46 Troponin HS Sent. ko1 18:15 Patient has correct armband on for positive identification. Bed in low position. Call ko1 light in reach. Side rails up X2. Client placed on continuous cardiac and pulse oximetry monitoring. NIBP monitoring applied. bus driver/monitor on. Door closed. Lights dimmed. Warm blanket given. 22:21 Troponin HS: redraw 2130 Sent. wm Administered Medications: 17:53 Drug: Zofran (Ondansetron) 4 mg Route: IVP; Site: left forearm; ko1 17:53 Drug: morphine 4 mg Route: IVP; Infused Over: 4 mins; Site: left forearm; ko1 19:37 Drug: Lasix (furosemide) 40 mg Route: IVP; Site: left forearm; mb9 19:51 Follow up: Response: No adverse reaction mb9 20:06 Drug: fentaNYL (PF) 25 mcg Route: IVP; Site: left forearm; mb9 21:12 Follow up: Response: No adverse reaction mb9 Outcome: 22:56 Discharge ordered by . cp 23:31 Patient left the ED. ha1 Signatures: Mustapha Joe PA PA cp Marsh, Wendy wm Ayala, Heidy, RN RN ha1 Malka Samuels RN RN ko1 Sondra Zheng RN RN mb9
--- NOTE | 2022-07-14 22:57 | EDPHYS ---
Physician Documentation [facility] Name: Ernie Rooney Age: 62 yrs Sex: Male : 1960 Arrival Date: 07/14/2022 Time: 17:19 Bed 16 Private MD: ED Physician Regan Hoff HPI: 07/14 18:51 This 62 yrs old Male presents to ER via EMS with complaints of Chest Pain. cp 18:51 The patient or guardian reports chest pain that is located primarily in the anterior cp chest wall, left. 18:51 Onset: 1 hour(s) ago. The pain does not radiate. Associated signs and symptoms: cp Pertinent positives: shortness of breath, Pertinent negatives: abdominal pain, cough, syncope, vomiting. The chest pain is described as sharp, constant. 18:51 Duration: The patient or guardian reports a single episode, that is still ongoing. cp 18:51 Severity of pain: in the emergency department the pain is unchanged despite EMS cp interventions. The patient has experienced similar episodes in the past, chronically. Historical: - Allergies: 17:21 Nitroglycerin; ko1 - PMHx: 17:21 Arthritis; Back pain; CAD; CHF; CVA; Depression; Fibromyalgia; GERD; Hyperlipidemia; ko1 Hypertensive disorder; Hypothyroidism; IDDM; Left sided weakness from previous CVA; Myocardial infarction; Pacemaker; - PSHx: 17:21 bilat BKA's; bypass; CABG; ko1 - Immunization history:: Adult Immunizations unknown. - Social history:: Smoking status: Patient/guardian denies using tobacco. ROS: 18:55 Constitutional: Negative for body aches, chills, fever, poor PO intake. cp 18:55 Eyes: Negative for injury, pain, redness, and discharge. cp 18:55 ENT: Negative for drainage from ear(s), ear pain, sore throat, difficulty swallowing, difficulty handling secretions. 18:55 Cardiovascular: Positive for chest pain, Negative for edema, palpitations. 18:55 Respiratory: Positive for shortness of breath, at rest. Negative for cough, wheezing. 18:55 Abdomen/GI: Negative for abdominal pain, vomiting, diarrhea, constipation. 18:55 Back: Negative for pain at rest, pain with movement. 18:55 Neuro: Negative for altered mental status, dizziness, headache, syncope, weakness. 18:55 All other systems are negative. Exam: 18:33 ECG was reviewed by the Attending Physician. cp 19:00 Constitutional: The patient appears in no acute distress, alert, awake, cp non-diaphoretic, non-toxic, well developed, well nourished, uncomfortable. 19:00 Head/Face: Normocephalic, atraumatic. cp 19:00 Eyes: Periorbital structures: appear normal, Conjunctiva: normal, no exudate, no injection, Sclera: no appreciated abnormality, Lids and lashes: appear normal, bilaterally. 19:00 ENT: External ear(s): are unremarkable, Nose: is normal, Mouth: Lips: moist, Oral mucosa: pink and intact, moist, Posterior pharynx: is normal, airway is patent, no erythema, no exudate. 19:00 Neck: ROM/movement: is normal, is supple, without pain, no range of motions limitations. 19:00 Chest/axilla: Inspection: normal. 19:00 Cardiovascular: Rate: tachycardic, Rhythm: regular, Edema: is not appreciated, JVD: is not appreciated. 19:00 Respiratory: the patient does not display signs of respiratory distress, Respirations: shallow respirations, that is mild, Breath sounds: are clear throughout, no decreased breath sounds, no stridor, no wheezing. 19:00 Abdomen/GI: Inspection: abdomen appears normal, Palpation: abdomen is soft and non-tender, in all quadrants. 19:00 Back: pain, is absent, ROM is normal. 19:00 Musculoskeletal/extremity: bilateral below the amputation. 19:00 Neuro: Orientation: to person, place \T\ time. Mentation: is normal, Motor: moves all fours, strength is normal. Vital Signs: 17:15 BP 157 / 95; Pulse 102; Resp 18; Temp 98(O); Pulse Ox 98% on 2 lpm NC; Weight 66.68 kg; ko1 Height 5 ft. 7 in. (170.18 cm); Pain 10/10; 17:30 BP 138 / 76; Pulse 91; Resp 18; Pulse Ox 98% ; ko1 17:45 BP 101 / 59; Pulse 95; Resp 16; Pulse Ox 98% ; ko1 18:00 BP 117 / 73; Pulse 92; Resp 18; Pulse Ox 97% on R/A; ko1 18:15 BP 121 / 72; Pulse 94; Resp 16; Pulse Ox 97% on R/A; ko1 19:53 BP 113 / 68; Pulse 91; Resp 18; Pulse Ox 99% ; mb9 21:13 BP 109 / 67; Pulse 87; Resp 16; Pulse Ox 97% on R/A; mb9 17:15 Body Mass Index 23.02 (66.68 kg, 170.18 cm) ko1 MDM: 17:33 Patient medically screened. cp 22:55 Data reviewed: vital signs, nurses notes, lab test result(s), EKG, radiologic studies, cp plain films. 22:55 Differential diagnosis: abnormal EKG, acute myocardial infarction, pericarditis, cp pleurisy, pneumonia, pneumothorax, pulmonary embolus, stable angina, thoracic aortic disection, unstable angina. I considered the following discharge prescriptions or medication management in the emergency department Medications were administered in the Emergency Department. See MAR. Independent interpretation of the following test(s) in the Emergency Department EKG: See my EKG interpretation above X-Ray: My interpretation is chest xray image negative for focalpneumonia. Test considered but Not performed: CT: chest. Care significantly affected by the following chronic conditions: Diabetes, Hypertension, Congestive Heart Failure. Counseling: I had a detailed discussion with the patient and/or guardian regarding: the historical points, exam findings, and any diagnostic results supporting the discharge/admit diagnosis, lab results, radiology results, to return to the emergency department if symptoms worsen or persist or if there are any questions or concerns that arise at home. Response to treatment: the patient's symptoms have markedly improved after treatment, and as a result, I will discharge patient. Special discussion: Based on the patient's history, exam, and Dx evaluation, there is no indication for emergent intervention or inpatient Tx. It is understood by the patient/guardian that if the Sx's persist or worsen they need to return immediately for re-evaluation. 07/14 17:21 Order name: Basic Metabolic Panel cp 07/14 17:21 Order name: CBC with Diff cp 07/14 17:21 Order name: Magnesium cp 07/14 17:21 Order name: NT PRO-BNP cp 07/14 17:21 Order name: PT-INR cp 07/14 17:21 Order name: Troponin HS cp 07/14 17:53 Order name: CBC with Automated Diff; Complete Time: 18:51 EDMS 07/14 18:51 Interpretation: Normal except: RBC 3.92; HGB 10.9; HCT 32.3; RDW 16.8; MPV 7.3. cp 07/14 17:53 Order name: Protime (+INR); Complete Time: 18:51 EDMS 07/14 19:19 Interpretation: Abnormal: PT 15.4. cp 07/14 18:11 Order name: Basic Metabolic Panel; Complete Time: 18:51 EDMS 07/14 19:19 Interpretation: Normal except: CL 110; GLUC 169; BUN 23; CA 8.1. cp 07/14 18:11 Order name: Troponin High Sensitivity; Complete Time: 18:51 EDMS 07/14 18:11 Order name: NT PRO-BNP; Complete Time: 18:51 EDMS 07/14 19:19 Interpretation: Abnormal: NT PRO-BNP 6827. 07/14 18:11 Order name: Magnesium; Complete Time: 18:51 EDMS 07/14 21:15 Order name: Troponin HS: redraw 2130 cp 07/14 22:48 Order name: Troponin High Sensitivity; Complete Time: 22:54 EDMS 07/14 22:55 Interpretation: Reviewed. 07/14 17:21 Order name: XRAY Chest (1 view) 07/14 17:21 Order name: EKG; Complete Time: 17:22 cp 07/14 17:21 Order name: Cardiac monitoring; Complete Time: 17:46 cp 07/14 17:21 Order name: EKG - Nurse/Tech; Complete Time: 18:27 cp 07/14 17:21 Order name: IV Saline Lock; Complete Time: 17:46 cp 07/14 17:21 Order name: Labs collected and sent; Complete Time: 17:46 cp 07/14 17:21 Order name: O2 Per Protocol; Complete Time: 17:46 cp 07/14 17:21 Order name: O2 Sat Monitoring; Complete Time: 17:46 cp 07/14 18:06 Order name: RAD; Complete Time: 18:51 EDMS EC:33 Rate is 90 beats/min. Rhythm is regular. [place] interval is normal. QRS interval is cp prolonged at 166 msec. QT interval is normal. Interpreted by me. Reviewed by me. Administered Medications: 17:53 Drug: Zofran (Ondansetron) 4 mg Route: IVP; Site: left forearm; ko1 17:53 Drug: morphine 4 mg Route: IVP; Infused Over: 4 mins; Site: left forearm; ko1 19:37 Drug: Lasix (furosemide) 40 mg Route: IVP; Site: left forearm; mb9 19:51 Follow up: Response: No adverse reaction mb9 20:06 Drug: fentaNYL (PF) 25 mcg Route: IVP; Site: left forearm; mb9 21:12 Follow up: Response: No adverse reaction mb9 Disposition Summary: 07/14/22 22:56 Discharge Ordered Location: Home cp Problem: new cp Symptoms: have improved cp Condition: Stable cp Diagnosis - Chest pain, unspecified cp - Unspecified combined systolic (congestive) and diastolic (congestive) heart failure cp Followup: cp - With: Private Physician - When: 1 - 2 days - Reason: Recheck today's complaints Discharge Instructions: - Discharge Summary Sheet cp - Nonspecific Chest Pain, Adult cp - Heart Failure, Diagnosis cp - Heart Failure, Self Care cp - Heart Failure Action Plan cp - Heart Failure Eating Plan cp Forms: - Medication Reconciliation Form cp - Thank You Letter cp - Antibiotic Education cp - Prescription Opioid Use cp Addendum: 07/18/2022 11:24 Co-signature as Attending Physician, Regan Hoff DO I was immediately available on-site m s3 in the Emergency Department for consultation in the care of the patient. Signatures: Dispatcher [employer] EDCA Mustapha Joe PA PA cp Regan Hoff DO DO ms3 Malka Samuels RN RN ko1 Sondra Zheng RN RN mb9 Corrections: (The following items were deleted from the chart) 07/15 15:55 07/14 18:51 The chest pain is described as constant cp cp
[2022-07-15 01:12] VITALS: BP 109/67; O2SAT 97
--- NOTE | 2022-07-15 13:20 | EKG ---
Test Date: 2022-07-14 Test Time: 18:25:40 Printed Circuit Board Drafter: BRAD MEASUREMENT RESULTS: Intervals: Rate: 90 MI: 184 QRSD: 166 QT: 430 QTc: 526 [place]: P: 27 MI: 184 QRS: 158 T: 24 INTERPRETIVE STATEMENTS: Electronic ventricular pacemaker Compared to ECG 07/11/2022 04:49:33 No significant changes Electronically Signed On 07-15-22 13:18:18 DIVISIONAL HUMAN RESOURCES DIRECTOR by Kavin Kenean
== END 2022-07-14 23:31 | disposition home or self-care (01) ==
LOC: ER 17:17
DX: R07.89 Other chest pain (principal); I50.40 Unspecified combined systolic (congestive) and diastolic (congestive) heart failure; I10 Essential (primary) hypertension; Z95.0 Presence of cardiac pacemaker; Z95.1 Presence of aortocoronary bypass graft; Z88.8 Allergy status to other drugs, medicaments and biological substances
CPT/HCPCS: 93005; 85025; 80048; 36415; 83735; 85610; 84484 ×2; 83880; 71045; 96375; 96374; 99284; J1940; J3010; J2405

== ENCOUNTER 2022-07-16 12:35 | Inpatient (IN) | payer OTHER ==
--- OUTSIDE RECORDS SUMMARY | 2022-07-16 12:45 | XMS REPORT | Continuity of Care Document ---
:1960 Author Organization [facility] t Address [address] [place] [address] Care Team Providers Name Role Phone MONIKA HALL MD Primary Care Physician [id number] Attending Clinician Unavailable Harshal hZu Attending Clinician Unavailable Finn Shah Attending Clinician Unavailable Doctor Unassigned, Crimora Attending Clinician Unavailable Josselyn Harding RN Attending [...] Attending Clinician Alis Garcia MD Attending Clinician [phone] Kaylyn Calvin MD Attending Clinician Tha Gunter MD Attending Clinician THA GUNTER Attending Clinician Unavailable DEIDRE JAIME Attending Clinician Unavailable Johnie Montanez Attending Clinician Unavailable Minnie Cardona MD Attending Clinician Tejas HALL, Drew Mckenzie Attending Clinician Johnie Skinner MD Attending Clinician JOHNIE SKINNER Attending Clinician Unavailable Janeth Leal DO Attending Clinician Cara HALL, Lisa Attending Clinician JOSE SHEARER Attending Clinician Unavailable Janki HALL, Jose Cherry Attending Clinician Gianluca HALL, Kandis Attending Clinician Caio Najera DO Attending Clinician Golden HALL, Stephanie Attending Clinician ANNA SENDMICHELLE K.H. Attending Clinician Unavailable Marcus HALL, Lopez Cardona Attending Clinician Jaimee HALL, Heather Attending Clinician Valery Carrillo MD Attending Clinician VALERY CARRILLO Attending Clinician Unavailable Anna HALL, Sendil K.H. Attending Clinician Nika Martin Attending Clinician Lola Lee MD Attending Clinician Demarcus Schulz Attending Clinician DEMARCUS REEVES Attending Clinician Unavailable Joan Ramirez Attending Clinician LIZETT GERARDO Attending Clinician Unavailable RICHMOND ROBLES Attending Clinician Unavailable Kendra Vaca MD Attending Clinician KENDRA VACA Attending Clinician Unavailable KENDRA VACA Attending Clinician Unavailable MICHAEL SHIRLEY Attending Clinician Unavailable Casper RAE, Michael Gaxiola Attending Clinician [phone] Nova RAE, Cortney Law Attending Clinician [phone] Emy SCRUGGS, Rhonda Attending Clinician Malia HALL, Dennis Arreola Attending Clinician Carlos Allen MD Attending Clinician ALEXIS COX Attending Clinician Unavailable JACQUELYN MONTES DE OCA Attending Clinician Unavailable NICHELLE PALACIOS Attending Clinician Unavailable [id number] Admitting Clinician Unavailable Nika Martin Admitting Clinician [...] Clinician Unavailable Geoffrey Hill MD Admitting Clinician Tej_Rizwana Admitting Clinician Unavailable AMBIKA FERNANDEZ Admitting Clinician [...] Admitting Clinician Unavailable Michael Hernandez Admitting Clinician [phone] Dennis Finley MDmed Mohamed Admitting Clinician ALEXIS COX Admitting Clinician Unavailable NICHELLE PALACIOS Admitting Clinician Unavailable Payers Payer Name Policy Type Policy Number Effective Date Expiration Date Sujit daugherty HLSM HLSM [id number] [employer] [id number] 2018spring 00:00:00 [employer] [id number] [address] [facility] 00:[facility] Patient [...] destinee n n 4-15 ity of 00:00: Medical Branch Sepsis Sepsis Disease Active Univers 4-14 ity of 00:00: Medical Branch Right leg Right leg Disease Active Uni vers pain pain 3-09 ity of 00:00: Medical Branch Acute on Acute on Disease Active Unive rs chronic chronic 3-09 [place]y of diastolic diastolic [place] (congestiv (congestiv 00 Me dical e) heart e) heart Branch failure failure Chest pain Chest pain Disease Active U nivers 3-08 ity of 00:00: 00 Medical Branch Acute on Acute on Disease Active Unive rs chronic chronic 3-08 ity of diastolic diastolic 00:00: [place] congestive congestive 00 Me dical heart [...] Added automatic ally from request for surgery [id number] Troponin I Troponin I Disease Active 2020-0 [...] 6-27 ity of foot foot 00:00: [place] [facility] Pacemaker Pacemaker Disease Active 2019- Uni vers 3-18 ity of 00:00: [place] 00 Medical Branch PAF PAF Disease Active 2019- Univers (paroxysma (paroxysma 3-18 it y of l atrial l atrial 00:00: [place] fibrillati fibrillati 00 Me dical on) on) Branch Abdominal Abdominal Disease Active 2019- Uni vers pain pain 2-27 ity of 00:00: [place] [facility] Pacemaker Pacemaker Disease Active 2019- Uni vers malfunctio malfunctio 2-04 it y of n n 00:00: [place] 00 Medical Branch Cellulitis Cellulitis Disease Active 2019- U nivers 1-19 ity of 00:00: [place] 00 Medical Branch Arterioven Arterioven Disease Active [...] 00:00: [place] involving involving 00 Medi uriel [place] 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 Type 2 Type 2 Disease Active 2019- Univers diabetes diabetes 8-29 ity of mellitus mellitus 00:00: [place] without without 00 Medical complicati complicati Br anch on, on, without without long-term long-term current current use of use of insulin insulin Essential Essential Disease Active Uni vers hypertensi hypertensi 8-29 it y of on on 00:00: [place] [id number] Medical Branch Other Other Disease Active Univers hyperlipid hyperlipid 8-29 it y of emia emia 00:00: [place] [facility] Stroke Stroke Disease Active Univers 5-12 ity of 00:00: [place] [address] Medical Branch Left-sided Left-sided Disease Active U nivers weakness weakness 5-11 ity of 00:00: [place] [facility] Left sided Left sided Disease Active U nivers numbness numbness 5-11 ity of 00:00: [place] 00 Medical Branch S/P admn S/P admn [...] chest pain 2-22 it y of 00:00: [place] [address] Medical Branch Chest pain Chest pain Problem [facility] [place] Coronary CAD Problem Active [facility] artery (coronary [facility] disease artery Patient disease) [facility] [place] Diabetic DKA Problem Active [facility] ketoacidos (diabetic Esme es is ketoacidos Patien t es) Medical [place] Hyperglyce Hyperglyce Problem Active [facility] bambi bambi [facility] Hypertensi Hypertensi Problem Active [facility] on on [facility] Pancreatit Pancreatit Problem Active [facility] is is [facility] Uncontroll Uncontroll Problem Active [facility] diabetes diabetes Patien t mellitus mellitus [facility] Allergies, Adverse Reactions, Alerts Allergy Allergy Status Severity Reaction(s) Onset Inactive Treating Comm ents Source Name Type Date Date Clinician No Known DA Active U [facility]ie 3-22 [place] 00:00: d 00 [facility] No Known DA Active U [facility] Allergie 3- [place] 00:00: d 00 [facility] No Known DA Active U 2017-05 [facility] Allergie 2-31 Clear s 00:00: Mejia 00 [facility] No Known DA Active U 2017-05 [facility] Allergie 2-31 Clear s 00:00: Mejia 00 [facility] No Known DA Active U [facility] Allergie 3- [place] s 00:00: e 00 [facility] NO KNOWN Drug Active Univers ALLERGIE Class ity of S [place] [facility] Social History Social Habit Start Date Stop Date Quantity Comments Source History of Passive smoker University of tobacco use [place] [facility] History SDOH University o f Alcohol Frequency [place] M edical Branch History SDOH University o f Alcohol Std [place] Medical Drinks Branch History SDOH University o f Alcohol Binge [place] Medic al Branch History SDOH Food 2022-02-11 2022-02-11 1 Univers ity of Worry 00:00:00 00:00:00 [place] [facility] History SDOH Food 2022-02-11 2022-02-11 1 Univers ity of Scarcity 00:00:00 00:00:00 [place] [facility] History SDOH 2022-02-11 2022-02-11 2 University o f Transport Med 00:00:00 00:00:00 [place] Medic al Branch History SDOH 2022-02-11 2022-02-11 2 University o f Transport Non-Med 00:00:00 00:00:00 [facility] edical Branch Exposure to 2022-01-30 2022-02-09 Not sure University of SARS-CoV-2 00:00:00 20:09:00 [facility] (event) Branch Tobacco use and 2022-02-09 2022-02-09 Smokeless tobacco Un iversity of exposure 00:00:00 00:00:00 non-user [facility] Alcohol intake 2022-02-09 2022-02-09 1.71 /d University [...] [place] Alcohol Comment 2019-07-18 2019-07-18 quit drinking Univ anika of 00:00:00 00:00:00 2013 but drank [facility] heavily before Branch this Sex Ass[birth year] At [birth year] LUCY Sanders 00:00:00 00:00:00 [facility] Smoking Status Start Date Stop Date Source Ex-smoker 2022-02-09 00:00:00 2022-02-09 00:00:00 Universi ty of [facility] Medications Ordered Filled Start Stop Current Ordering Indication Dosage Frequency Signature Comments Components Source Medication Medication Date Date Medication? Clinician (SIG) Name Name aspirin 81 2021- No [id number] 81mg Take 1 Univers mg chewable 9-23 10-24 tablet by it y of tablet 00:00: 04:59 mouth [place] 00 :00 daily with Medical breakfast Branch for 30 days. glipiZIDE 5 2021- No [id number] 5mg Take 1 Univers mg tablet 9-23 10-24 tablet by ity of 00:00: 04:59 mouth in [place] 00 :00 the Medical morning Branch for 30 days. levothyroxi 2021- No [id number] 50ug Take 1 Univers ne 50 mcg 9-23 10-24 tablet by ity of tablet 00:00: 04:59 mouth [place] 00 :00 every Medical morning Branch for 30 days. lisinopriL 2021- No [id number] 2.5mg Take 1 Univers 2.5 mg 9-23 10-24 tablet by ity of tablet 00:00: 04:59 mouth in [place] 00 :00 the Medical morning Branch for 30 days. spironolact 2021- No [id number] 25mg Take 1 Univers one 25 mg 9-23 10-24 tablet by ity of tablet 00:00: 04:59 mouth in [place] 00 :00 the Medical morning Branch for 30 days. tamsulosin 2021- No [id number] .4mg Take 1 Univers 0.4 mg 24 9-23 10-24 capsule by ity of hr capsule 00:00: 04:59 mouth in [facility] 00 :00 the Medical morning Branch for 30 days. aspirin 81 2021- No [id number] 81mg Take 1 Univers mg chewable 9-23 10-24 tablet by it y of tablet 00:00: 04:59 mouth [place] 00 :00 daily with [facility] breakfast Branch for 30 days. glipiZIDE 5 2021- No [id number] 5mg Take 1 Univers mg tablet 9-23 10-24 tablet by ity of 00:00: 04:59 mouth in [place] 00 :00 the [facility] morning [place] for 30 days. levothyroxi 2021- No [id number] 50ug Take 1 Univers ne 50 mcg 9-23 10-24 tablet by ity of tablet 00:00: 04:59 mouth [place] 00 :00 every [facility] morning Branch for 30 days. lisinopriL 2021- No [id number] 2.5mg Take 1 Univers 2.5 mg 9-23 10-24 tablet by ity of tablet 00:00: 04:59 mouth in [place] 00 :00 the [facility] morning [place] for 30 days. spironolact 2021- No [id number] 25mg Take 1 Univers one 25 mg 9-23 10-24 tablet by ity of tablet 00:00: 04:59 mouth in [place] 00 :00 the [facility] morning [place] for 30 days. tamsulosin 2021- No [id number] .4mg Take 1 Univers 0.4 mg 24 9-23 10-24 capsule by ity of hr capsule 00:00: 04:59 mouth in [facility] 00 :00 the Medical morning Branch for 30 days. sulfur 2021- No [id number] 5mL 5 mL, Unive rs hexafluorid 02-10 Intravenou i ty of e microsphr 16:30: 16:30 s, ONCE, 1 [place] (LUMASON) 00 :00 dose, On Medica l injection 5 Annie Branch mL 02/10/22 at 1130, Routine
media law faculty member approving Restricted medication : NINFA CASTILLO traMADoL 0 Yes 50mg 50 mg, Univers (ULTRAM) 02-10 Oral, ity of tablet 50 15:10: Q6HPRN, [place] mg 57 Starting Medical on [facility] Branch 02/10/22 at 1010, Until Discontinu ed, Routine, Pain (scale 7-10) lisinopriL 0 Yes 2.5mg 2.5 mg, Uni vers (PRINIVIL,Z 02-10 Oral, ity of ESTRIL) 14:00: DAILY, [place] tablet 2.5 00 First dose Med ical mg on [facility] Branch 02/10/22 at 0900, Until Discontinu ed, Routine glipiZIDE Yes 5mg 5 mg, Univers (GLUCOTROL) 02-10 Oral, ity of tablet 5 mg 14:00: DAILY, [place] 00 First dose Medical on [facility] Branch 02/10/22 at 0900, Until Discontinu ed, Routine enoxaparin 0 Yes 30mg 30 mg, Unive rs (LOVENOX) 02-10 Subcutaneo ity of injection 14:00: [place], DAILY, [place] 30 mg 00 First dose Medical on [facility] Branch 02/10/22 at 0900, Until Discontinu ed, Routine levothyroxi Yes 50ug 50 mcg, Uni vers ne 02-10 Oral, ity of (SYNTHROID) 11:00: QAM-0600, [place] tablet 50 00 First dose Medi uriel mcg on [facility] Branch 02/10/22 at 0600, Until Discontinu ed, Routine morpHINE (2 2021- No 2mg 2 mg, Slow Univers mg/mL) 02-10 IV Push, ity of injection 2 08:45: 08:01 ONCE, 1 [place] mg 00 :00 dose, On Medical [facility] 02/10/22 at 0345, Routine furosemide 0 Yes 20mg 20 mg, IV Un char[place] (LASIX) 02-10 Push, Q8H, ity of injection 04:15: First dose [place] 20 mg 00 on [facility] Medical 02/09/22 at Branch 2315, Until Discontinu ed, Routine spironolact 2021-0 Yes 25mg 25 mg, Univ ers one 02-10 Oral, ity of (ALDACTONE) 04:15: DAILY, [place] tablet 25 00 First dose Medi uriel mg on Mon [place] 02/09/22 at 2315, Until Discontinu ed, Routine atorvastati 2021-0 Yes 40mg 40 mg, Univ ers n (LIPITOR) 02-10 Oral, QHS, it y of tablet 40 04:15: First dose [place] mg 00 on Mon [facility] 02/09/22 at Branch 2315, Until [...] dose Med ical 12.5 mg on Mon [place] 02/09/22 at 2315, Until Discontinu ed, Routine tamsulosin 2021-0 Yes .4mg 0.4 mg, Univ ers (FLOMAX) 02-10 Oral, ity of capsule 0.4 04:15: DAILY, [place] mg 00 First dose Medical on Mon [place] 02/09/22 at 2315, Until Discontinu ed, Routine gabapentin 2021-0 Yes 300mg 300 mg, Uni vers (NEURONTIN) 02-10 Oral, BID, it y of capsule 300 04:15: First dose [place] mg 00 on Mon [facility] 02/09/22 at Branch 2315, Until Discontinu ed, Routine sennosides 2021-0 Yes 8.6mg 8.6 mg, Uni vers (SENOKOT) 02-10 Oral, BID, ity of tablet 8.6 04:15: First dose [place] mg 00 on Mon [facility] 02/09/22 at Branch 2315, Until Discontinu ed, Routine docusate 2021-0 Yes 100mg 100 mg, Unive rs (COLACE) 02-10 Oral, BID, ity o f capsule 100 04:15: First dose [place] mg 00 on Mon [facility] 02/09/22 at Branch 2315, Until [...] ed, Routine, Nausea and Vomiting (N/V) glucagon 0 Yes 1mg 1 mg, Univers (GLUCAGEN 02-10 [...] IV ity of (D50W) 04:01: Push, PRN, [place] injection 56 Starting Medica l 25 mL on Mon Branch 02/09/22 at 2301, Until Discontinu ed, PIERRE, Blood Glucose < or = 70 mg/dL and patient is unable to swallow or has mental status changes. atorvastati 2021- No [id number] 40mg Take 1 Univers n 40 mg - 10-23 tablet by ity of tablet 00:00: 04:59 mouth at [place] 00 :00 bedtime Medical for 30 Branch days. metoprolol 2021- No [id number] 12.5mg Take 0.5 Univers succinate 9-22 10-23 tablets by ity of XL 25 mg 24 00:00: 04:59 mouth in [place] hr tablet 00 :00 the Medical morning Branch for 30 days. atorvastati 2021- No [id number] 40mg Take 1 Univers n 40 mg -22 10-23 tablet by ity of tablet 00:00: 04:59 mouth at [place] 00 :00 bedtime Medical for 30 Branch days. metoprolol 2021- No [id number] 12.5mg Take 0.5 Univers succinate 02-10-23 tablets by ity of XL 25 mg [...] at 0215, 1 mL gabapentin 2021- No [id number] 300mg Take 1 Univers 300 mg 11-05 capsule by ity of capsule 00:00: 04:59 mouth 3 [place] 00 :00 (three) Medical times Branch daily for 10 days. gabapentin 2021- No [id number] 300mg Take 1 Univers 300 mg 11-05 capsule by ity of capsule 00:00: 04:59 mouth 3 [place] 00 :00 (three) Medical times Branch daily for 10 days. aspirin 81 2021- No [id number] 81mg Take 1 Univers mg chewable 6-16 07-17 tablet by it y of tablet 00:00: 04:59 mouth [place] 00 :00 daily for Medical 30 days. [place] aspirin 81 2021- No [id number] 81mg Take 1 Univers mg chewable 6-16 07-17 tablet by it y of tablet 00:00: 04:59 mouth [place] 00 :00 daily for Medical 30 days. [place] aspirin 81 2021- No [id number] 81mg Take 1 Univers mg chewable 6-16 07-17 tablet by it y of tablet 00:00: 04:59 mouth [place] 00 :00 daily for Medical 30 days. [place] proMETHazin Yes [id number] 25mg Take 1 Univers e 25 mg 6-03 tablet by ity of tablet 00:00: mouth [place] 00 every 6 Medical (six) Branch hours as needed for Nausea and Vomiting (N/V). proMETHazin Yes [id number] 25mg Take 1 Univers e 25 mg 6-03 tablet by ity of tablet 00:00: mouth [place] 00 every 6 Medical (six) Branch hours as needed for Nausea and Vomiting (N/V). proMETHazin 2-0 Yes [id number] 25mg Take 1 Univers e 25 mg 6-03 tablet by ity of tablet 00:00: mouth [place] 00 every 6 Medical (six) Branch hours as needed for Nausea and Vomiting (N/V). proMETHazin 2-0 Yes [id number] 25mg Take 1 Univers e 25 mg 6-03 tablet by ity of tablet 00:00: mouth [place] 00 every 6 Medical (six) Branch hours as needed for Nausea and Vomiting (N/V). proMETHazin 2021-0 Yes [id number] 25mg Take 1 Univers e 25 mg 6-03 tablet by ity of tablet 00:00: mouth [place] 00 every 6 Medical (six) Branch hours as needed for Nausea and Vomiting (N/V). proMETHazin 2021-0 Yes [id number] 25mg Take 1 Univers e 25 mg 6-03 tablet by ity of tablet 00:00: mouth [place] 00 every 6 Medical (six) Branch hours as needed for Nausea and Vomiting (N/V). fenofibrate 2021-2021- No [id number] 134mg Take 1 Univers micronized -19 12- capsule by it y of 134 mg 00:00: 04:59 mouth [place] capsule 00 :00 daily for Medical 30 days. Branch lisinopriL 2021-2- No [id number] 2.5mg Take 1 Univers 2.5 mg 10-19- tablet by ity of tablet 00:00: 04:59 mouth [place] 00 :00 daily for Medical 30 days. Branch fenofibrate 2021-0 2- No [id number] 134mg Take 1 Univers micronized -19 12- capsule by it y of 134 mg 00:00: 04:59 mouth [place] capsule 00 :00 daily for Medical 30 days. Branch lisinopriL 2021-0 2- No [id number] 2.5mg Take 1 Univers 2.5 mg -19 12- tablet by ity of tablet 00:00: 04:59 mouth [place] 00 :00 daily for Medical 30 days. Branch fenofibrate 2021-0 2- No [id number] 134mg Take 1 Univers micronized 5-19 12- capsule by it y of 134 mg 00:00: 04:59 mouth [place] capsule 00 :00 daily for Medical 30 days. [place] lisinopriL 2021- No [id number] 2.5mg Take 1 Univers 2.5 mg 10-19- tablet by ity of tablet 00:00: 04:59 mouth [place] 00 :00 daily for Medical 30 days. Branch furosemide 2021- No [id number] 40mg Take 1 Univers 40 mg 5-30 -30 tablet by ity of tablet 00:00: 04:59 mouth [place] 00 :00 every Medical morning Branch and evening for 30 days. apixaban 5 2021- No [id number] 5mg Take 1 Univ ers mg tablet 30 -30 tablet by ity of 00:00: 04:59 mouth 2 [place] 00 :00 (two) Medical times Branch daily for 30 days. Indication s: atrial fibrillati on calcitrioL 2021- No [id number] .5ug Take 1 Univers 0.5 mcg -18 11-30 capsule by ity o f capsule 00:00: 04:59 mouth [place] 00 :00 daily for Medical 30 days. Branch insulin NPH 2021- No [id number] 5U inject 5 Univers (HUMULIN N 5-30 -30 Units ity of NPH U-100 00:00: 04:59 under [place] INSULIN) 00 :00 skin every Medic al 100 unit/mL evening Branc h injection for 30 days. atorvastati 2021- No [id number] 40mg Take 1 Univers n 40 mg 5-30 -30 tablet by ity of tablet 00:00: 04:59 mouth at [place] 00 :00 bedtime Medical for 30 Branch days. carvediloL 2021- No [id number] 3.125mg Take 1 Univers 3.125 mg 5-30 -30 tablet by ity o f tablet 00:00: 04:59 mouth 2 [place] 00 :00 (two) Medical times Branch daily with meals for 30 days. furosemide 2021- No [id number] 40mg Take 1 Univers 40 mg 5-30 -30 tablet by ity of tablet 00:00: 04:59 mouth [place] 00 :00 every Medical morning Branch and evening for 30 days. apixaban 5 2021- No [id number] 5mg Take 1 Univ ers mg tablet 5-30 06-30 tablet by ity of 00:00: 04:59 mouth 2 [place] 00 :00 (two) Medical times [place] daily for 30 days. Indication s: atrial fibrillati on calcitrioL 2021- No [id number] .5ug Take 1 Univers 0.5 mcg 5-30 06-30 capsule by ity o f capsule 00:00: 04:59 mouth [place] 00 :00 daily for Medical 30 days. Branch insulin NPH 2021- No [id number] 5U inject 5 Univers (HUMULIN N 5-30 06-30 Units ity of NPH U-100 00:00: 04:59 under the [place] INSULIN) 00 :00 skin every Medic al 100 unit/mL evening Branc h injection for 30 days. atorvastati 2021- No [id number] 40mg Take 1 Univers n 40 mg 5-30 06-30 tablet by ity of tablet 00:00: 04:59 mouth at [place] 00 :00 bedtime Medical for 30 Branch days. carvediloL 2021- No [id number] 3.125mg Take 1 Univers 3.125 mg 5-30 06-30 tablet by ity o f tablet 00:00: 04:59 mouth 2 [place] 00 :00 (two) Medical times [place] daily with meals for 30 days. furosemide 2021- No [id number] 40mg Take 1 Univers 40 mg 5-30 06-30 tablet by ity of tablet 00:00: 04:59 mouth [place] 00 :00 every Medical morning Branch and evening for 30 days. apixaban 5 2021- No [id number] 5mg Take 1 Univ ers mg tablet 5-30 06-30 tablet by ity of 00:00: 04:59 mouth 2 [place] 00 :00 (two) Medical times [place] daily for 30 days. Indication s: atrial fibrillati on calcitrioL 2021- No [id number] .5ug Take 1 Univers 0.5 mcg 5-30 06-30 capsule by ity o f capsule 00:00: 04:59 mouth [place] 00 :00 daily for Medical 30 days. Branch insulin NPH 2021- No [id number] 5U inject 5 Univers (HUMULIN N 5-30 06-30 Units ity of NPH U-100 00:00: 04:59 under the [place] INSULIN) 00 :00 skin every Medic al 100 unit/mL evening Branc h injection for 30 days. atorvastati 2021- No [id number] 40mg Take 1 Univers n 40 mg 5-30 06-30 tablet by ity of tablet 00:00: 04:59 mouth at [place] 00 :00 bedtime Medical for 30 Branch days. carvediloL 2021- No [id number] 3.125mg Take 1 Univers 3.125 mg 5-30 06-30 tablet by ity o f tablet 00:00: 04:59 mouth 2 [place] 00 :00 (two) Medical times Branch daily with meals for 30 days. metFORMIN Yes [id number] 500mg Take 1 U nivers 500 mg 3-02 tablet by ity of tablet 00:00: mouth [place] ([facility]) Medical times Branch daily with meals. metFORMIN Yes [id number] 500mg Take 1 U nivers 500 mg 3-02 tablet by ity of tablet 00:00: mouth [place] (two) Medical times Branch daily with meals. metFORMIN Yes [id number] 500mg Take 1 U nivers 500 mg 3-02 tablet by ity of tablet 00:00: mouth 2 [place] (two) Medical times Branch daily with meals. metFORMIN Yes [id number] 500mg Take 1 U nivers 500 mg 3-02 tablet by ity of tablet 00:00: mouth [place] (two) Medical times Branch daily with meals. metFORMIN Yes [id number] 500mg Take 1 U nivers 500 mg 3-02 tablet by ity of tablet 00:00: mouth [place] (two) Medical times Branch daily with meals. metFORMIN Yes [id number] 500mg Take 1 U nivers 500 mg 3-02 tablet by ity of tablet 00:00: mouth 2 [place] (two) Medical times Branch daily with meals. albuterol Yes [id number] 2{puff} Inhale 2 Univers 90 2-21 Puffs 2 ity of mcg/actuati 00:00: (two) [place] on inhaler 00 times Medical daily. Branch collagenase Yes [id number] Use as Univers 250 2-21 directed ity of unit/gram 00:00: by office Juan J as ointment 00 Medical Branch cyclobenzap Yes [id number] 10mg Take 1 Univers rine 10 mg 2-21 tablet by ity of tablet 00:00: mouth 2 [place] 00 (two) Medical times Branch daily as needed for Muscle Spasms. dextrometho Yes [id number] 10mL Take 10 mL Univers rphan-guaif 2-21 [...] for Pain (scale 4-6). melatonin 3 Yes [id number] 3mg Take 1 Univers mg tablet 2-21 tablet by ity o f 00:00: mouth at [place] 00 bedtime. Medical Branch ondansetron Yes [id number] 4mg Take 1 Univers 4 mg 2-21 tablet by ity of disintegrat 00:00: mouth [place] ing tablet 00 every 8 Medica l (eight) Branch hours as needed for Nausea and Vomiting (N/V). albuterol Yes [id number] 2{puff} Inhale 2 Univers 90 2-21 Puffs 2 ity of mcg/actuati 00:00: (two) [place] on inhaler 00 times Medical daily. Branch collagenase Yes [id number] Use as Univers 250 2-21 directed ity of unit/gram 00:00: by office Juan J as ointment 00 Medical Branch cyclobenzap Yes [id number] 10mg Take 1 Univers rine 10 mg 2-21 tablet by ity of tablet 00:00: mouth 2 [place] 00 (two) Medical times Branch daily as needed for Muscle Spasms. dextrometho 0 Yes [id number] 10mL Take 10 mL Univers rphan-guaif 2-21 [...] for Pain (scale 4-6). melatonin 3 Yes [id number] 3mg Take 1 Univers mg tablet 2-21 tablet by ity o f 00:00: mouth at [place] 00 bedtime. Medical Branch ondansetron Yes [id number] 4mg Take 1 Univers 4 mg 2-21 tablet by ity of disintegrat 00:00: mouth [place] ing tablet 00 every 8 Medica l (eight) Branch hours as needed for Nausea and Vomiting (N/V). albuterol Yes [id number] 2{puff} Inhale 2 Univers 90 2-21 Puffs 2 ity of mcg/actuati 00:00: (two) [place] on inhaler 00 times Medical daily. Branch collagenase Yes [id number] Use as Univers 250 2-21 directed ity of unit/gram 00:00: by office Juan J as ointment 00 Medical Branch cyclobenzap Yes [id number] 10mg Take 1 Univers rine 10 mg 2-21 tablet by ity of tablet 00:00: mouth 2 [place] 00 (two) Medical times Branch daily as needed for Muscle Spasms. dextrometho Yes [id number] 10mL Take 10 mL Univers rphan-guaif 2-21 [...] for Pain (scale 4-6). melatonin 3 Yes [id number] 3mg Take 1 Univers mg tablet 2-21 tablet by ity o f 00:00: mouth at [place] 00 bedtime. Medical Branch ondansetron Yes [id number] 4mg Take 1 Univers 4 mg 2-21 tablet by ity of disintegrat 00:00: mouth [place] ing tablet 00 every 8 Medica l (eight) Branch hours as needed for Nausea and Vomiting (N/V). albuterol Yes [id number] 2{puff} Inhale 2 Univers 90 2-21 Puffs 2 ity of mcg/actuati 00:00: (two) [place] on inhaler 00 times Medical daily. Branch collagenase 0 Yes [id number] Use as Univers 250 2-21 directed ity of unit/gram 00:00: by office Juan J as ointment 00 Medical Branch cyclobenzap Yes [id number] 10mg Take 1 Univers rine 10 mg 2-21 tablet by ity of tablet 00:00: mouth 2 [place] 00 (two) Medical times Branch daily as needed for Muscle Spasms. melatonin 3 Yes [id number] 3mg Take 1 Univers mg tablet 2-21 tablet by ity o f 00:00: mouth at [place] 00 bedtime. Medical Branch ondansetron Yes [id number] 4mg Take 1 Univers 4 mg 2-21 tablet by ity of disintegrat 00:00: mouth [place] ing tablet 00 every 8 Medica l (eight) Branch hours as needed for Nausea and Vomiting (N/V). albuterol Yes [id number] 2{puff} Inhale 2 Univers 90 2-21 Puffs 2 ity of mcg/actuati 00:00: (two) [place] on inhaler 00 times Medical daily. Branch collagenase Yes [id number] Use as Univers 250 2-21 directed ity of unit/gram 00:00: by office Juan J as ointment 00 Medical Branch cyclobenzap Yes [id number] 10mg Take 1 Univers rine 10 mg 2-21 tablet by ity of tablet 00:00: mouth 2 [place] 00 (two) Medical times Branch daily as needed for Muscle Spasms. melatonin 3 Yes [id number] 3mg Take 1 Univers mg tablet 2-21 tablet by ity o f 00:00: mouth at [place] 00 bedtime. Medical Branch ondansetron Yes [id number] 4mg Take 1 Univers 4 mg 2-21 tablet by ity of disintegrat 00:00: mouth [place] ing tablet 00 every 8 Medica l (eight) Branch hours as needed for Nausea and Vomiting (N/V). albuterol Yes [id number] 2{puff} Inhale 2 Univers 90 2-21 Puffs 2 ity of mcg/actuati 00:00: (two) [place] on inhaler 00 times Medical daily. Branch collagenase Yes [id number] Use as Univers 250 2-21 directed ity of unit/gram 00:00: by office Juan J as ointment 00 Medical Branch cyclobenzap Yes [id number] 10mg Take 1 Univers rine 10 mg 2-21 tablet by ity of tablet 00:00: mouth 2 [place] 00 (two) Medical times Branch daily as needed for Muscle Spasms. melatonin 3 Yes [id number] 3mg Take 1 Univers mg tablet 2-21 tablet by ity o f 00:00: mouth at [place] 00 bedtime. Medical Branch ondansetron Yes [id number] 4mg Take 1 Univers 4 mg 2-21 tablet by ity of disintegrat 00:00: mouth [place] ing tablet 00 every 8 Medica l (eight) Branch hours as needed for Nausea and Vomiting (N/V). dextrometho 2021- No [id number] 10mL Take 10 mL Univers rphan-guaif 07-12 [...] Pain (scale 4-6). Aspirin 81 Aspirin 81 2018- No Alexis [address] [facility] [address] Mg Tab.chew Mg Tab.chew 10-26 Brooke Frankel 00:00: 00:00 Patient 00 :00 [facility] Diflunisal Diflunisal 2015- No Todd Wynn [address] [facility] (Dolobid) (Dolobid) 8-29 07-05 [facility] 500 Mg 500 Mg 00:00: 00:00 Patient Tablet, 500 Tablet, 500 00 :00 M edical Mg Oral Mg Oral Center Ondansetron Ondansetron 2016- No Todd Wynn [address] [facility] Hcl Hcl 01-17 Forrest Hours as Luke s (Zofran*) 4 (Zofran*) 4 00:00: 00:00 needed for Patient Mg Tablet, Mg Tablet, 00 :00 Nausea M edical 4 Mg 4 Mg Center Sublingual Sublingual Clopidogrel Clopidogrel Yes [address] [facility] Bisulfate Bisulfate [facility] (Plavix) 75 (Plavix) 75 P atient Mg Tablet Mg Tablet Medic al Center Cyclobenzap Cyclobenzap Yes [address] [address] rine Hcl rine Hcl Times A Luke s (Flexeril) (Flexeril) Day as P atient 5 Mg Tablet 5 Mg Tablet needed for Medical Muscle Center Spasms Doxazosin Doxazosin Yes [address] Mesylate Mesylate [facility] (Cardura) 8 (Cardura) 8 P [...] [facility] Mg Tablet Mg Tablet Day [facility] Patient Medical [place] Hydrocodone Hydrocodone Yes [address] [facility] [address] Bit/Acetami Bit/Acetami Hours as [facility] nophen nophen needed for Patie nt ([place] [facility] 10-325 10-325 Center Tablet) 1 [...] 2.5 Mg [facility] Tablet Tablet Patient Medical [place] Metformin Metformin Yes [address] [facility] Hcl Day [facility] (Glucophage (Glucophage P atient ) 1,000 Mg ) 1,000 Mg Med ical Tablet Tablet Center Methadone Methadone Yes 5 Every [address] Hcl 5 Mg Hcl 5 Mg Hours [facility]ukes Tablet Tablet Patient Medical [place] Metoprolol Metoprolol Yes [address] Tartrate 25 Tartrate 25 L ukes Mg Tablet Mg Tablet Patie nt [facility] Nitroglycer Nitroglycer Yes As Needed [facility] in in [facility]ukes (Nitrostat) (Nitrostat) P atient 0.4 Mg 0.4 Mg Medical Tab.subl Tab.subl Center Omeprazole Omeprazole Yes [address] 20 Mg 20 Mg [facility] Capsule.dr Lind. [facility] Simvastatin Simvastatin Yes [address] 80 Mg 80 Mg [facility]ukes Tablet Tablet Patient [facility] Tamsulosin Tamsulosin Yes Daily [facility] Hcl 0.4 Mg Hcl 0.4 Mg Esme es Cap.er.24h Cap.er.24h [facility] Tramadol Tramadol Yes [address] Hcl Hcl Daily as [facility] (Ultram) 50 (Ultram) 50 needed for Patient Mg Tablet Mg Tablet Pain Medic al Center Venlafaxine Venlafaxine Yes [address] Hcl 75 Mg Hcl 75 Mg Lukes Tab Tab Patient [facility] Albuterol Albuterol 2017- No [address] [facility] Sulfate Sulfate 10-15 Day as [facility] (Proair Hfa (Proair Hfa 00:00 needed for Patient Inhaler*) Inhaler*) :[facility] Medical 8.5 Gm Inh, 8.5 Gm Inh, Of Breath Center 1 Inh 1 Inh Inhalation Inhalation Dicyclomine Dicyclomine 2017- No [address] Hcl 20 Mg Hcl 20 Mg 10-15 Daily Esme es Tablet, 20 Tablet, 20 00:00 Pa tient Mg Oral Mg Oral :00 [facility] Insulin Insulin 2017- No 40 7AM [...] Luke s Tab, 37.5 Tab, 37.5 00:00 Majnula ent Mg Oral Mg Oral :00 Medical [...] 06-17 [facility]ukes Capsule., Capsule., 00:00 Patient :00 [facility] Center Insulin Insulin 90 Twice [...] 25 Mg Oral 25 Mg Oral :00 [facility] Albuterol Albuterol As Needed [facility] Sulfate Sulfate 11-23 as needed Esme es (Ventolin (Ventolin 00:00 for Manjula ent Hfa) 18 Gm Hfa) 18 Gm :00 [facility] Medical Hfa.aer.ad, Hfa.aer.ad, Of [facility] 90 Mcg 90 Mcg Inhalation Inhalation Dicyclomine Dicyclomine Twice A [facility] Hcl 10 Mg Hcl 10 Mg 11-23 Day Luke s Capsule, 10 Capsule, 10 00:00 Patient Mg Oral Mg Oral :00 [facility] Methocarbam Methocarbam [address] [...] Mg Oral :00 Medical Center Nitroglycer Nitroglycer 2016- No .[address] [facility] in [...] Mg Oral :00 Medical Center Venlafaxine Venlafaxine No 37.5 Twice [...] Mg Oral 10 Mg Oral :00 [facility] ical Center Gabapentin Gabapentin 2014- No [address] 300 Mg 300 Mg 07- Times A [facility]ukes Capsule, Capsule, 00:00 Day Patien t 600 Mg Oral 600 Mg Oral :00 [facility] Pregabalin Pregabalin 2013- No 150 [...] Immunizations Ordered Filled Immunization Date Status Comments [facility] e Immunization Name Name Influenza Virus [...] Polysaccharide, 00:00:00 [place] Med ical PPSV23 (PNEUMOVAX) [place] Influenza Virus 2018-02-18 Completed Universit y of Vaccine 00:00:00 [facility] Pneumococcal 2018-02-18 Completed University o f Polysaccharide, 00:00:00 [place] Med ical PPSV23 (PNEUMOVAX) [place] Influenza Virus 2018-02-18 Completed Universit y of [...] 2008-03-19 Completed University o f Polysaccharide, 00:00:00 [facility] ical PPSV23 (PNEUMOVAX) Branch [...] Polysaccharide, 00:00:00 [place] Med ical PPSV23 (PNEUMOVAX) [place] Vital Signs Vital Name Observation Time Observation Value Comments Source Systolic blood 2022-02-10 105 mm[Hg] University of pressure 16:35:00 [place] [facility] Diastolic blood 2022-02-10 57 mm[Hg] University o f pressure 16:35:00 [facility] Branch Heart rate 2022-02-10 65 /min University of 16:35:00 [facility] Branch Body temperature 2022-02-10 36.22 Sandy University of 16:35:00 [facility] Branch Respiratory rate 2022-02-10 18 /min University of 16:35:00 [facility] Branch Oxygen saturation 2022-02-10 98 /min University of in Arterial blood 16:35:00 [place] Medi uriel by Pulse oximetry Branch Body weight 2022-02-10 74.98 kg University of 08:16:00 [facility] Branch BMI 2022-02-10 25.89 kg/m2 University of 08:16:00 [facility] Body height 2022-02-10 170.2 cm Height before University of 01:18:00 Bilat BKA [facility] Systolic blood 2021-11-09 124 mm[Hg] University of pressure 23:00:00 [facility] Diastolic blood 2021-11-09 69 mm[Hg] University o f pressure 23:00:00 [place] [facility] Heart rate 2021-11-09 72 /min University of 23:00:00 [facility] Branch Respiratory rate 2021-11-09 25 /min University of 23:00:00 [facility] Oxygen saturation 2021-11-09 98 /min University of in Arterial blood 23:00:00 [facility] uriel by Pulse oximetry Branch Body temperature 2021-11-09 37.22 Sandy University of 20:28:39 [facility] Body height 2021-11-09 170.2 cm University of 20:16:00 [facility] Branch Body weight 2021-11-09 71.215 kg University of 20:16:00 [facility] BMI 2021-11-09 24.59 kg/m2 University of 20:16:00 [facility] Branch Systolic blood 2021-11-05 134 mm[Hg] University of pressure 10:00:00 [facility] Branch Diastolic blood 2021-11-05 78 mm[Hg] University o f pressure 10:00:00 [facility] Branch Heart rate 2021-11-05 81 /min University of 10:00:00 [facility] Body temperature 2021-11-05 36.28 Sandy University of 08:10:00 [facility] Branch Respiratory rate 2021-11-05 18 /min [facility] 08:00:00 [facility] Oxygen saturation 2021-11-05 99 /min [facility] Arterial blood 08:00:00 [facility] by Pulse oximetry [place] Body height 2021-11-05 170.2 cm [facility] 05:48:00 [facility] Body weight 2021-11-05 71.215 kg [facility] 05:48:00 [facility] BMI 2021-11-05 24.59 kg/m2 [facility] 05:48:00 [facility] Procedures Procedure Date / Time Performing Clinician Source Performed INSURANCE CORRESPONDENCE 2022-04-19 06:01:00 Doctor Unassigned, [facility] [facility] [place] TRANSTHORACIC ECHO (TTE) 2022-02-10 13:16:00 Martha Rowe [facility] COMPLETE W/ CONTRAST Medical Bra nch PHOSPHORUS 2022-02-10 10:22:00 Martha Rowe [facility] MAGNESIUM 2022-02-10 10:22:00 Jae marilu [facility] TROPONIN I 2022-02-10 10:22:00 Martha Rowe [facility] COMP. METABOLIC PANEL 2022-02-10 10:22:00 Martha Rowe [facility] ([id number]) [facility] CBC WITH DIFF 2022-02-10 10:22:00 Martha Rowe [facility] CREATINE KINASE 2022-02-10 04:37:00 Martha Rowe [facility] URIC ACID 2022-02-10 04:37:00 Martha Rowe [facility] FERRITIN SERUM 2022-02-10 04:37:00 Martha Rowe [facility] FOLATE 2022-02-10 04:37:00 Jea marilu [facility] TROPONIN I 2022-02-10 04:37:00 Martha Rowe [facility] THYROID STIMULATING 2022-02-10 04:37:00 Martha Rowe [facility] HORMONE Medical Branch LIPID PANEL ([id number])(TOTAL 2022-02-10 04:37:00 Martha Rowe [facility] CHOLESTEROL, Medical Branch TRIGLYCERIDES, HDL) IRON PANEL 2022-02-10 04:37:00 Martha Rowe [facility] GLYCOSYLATED HEMOGLOBIN 2022-02-10 04:37:00 Martha Rowe [facility] (A1C) [facility] N-TERMINAL PRO-BNP 2022-02-10 04:37:00 Martha Rowe [facility] VITAMIN D, 25-OH 2022-02-10 04:37:00 Jae marilu [facility] COVID-19 (ID NOW RAPID 2022-02-10 04:37:00 Martha Rowe [facility] TESTING) [facility] B-TYPE NATRIURETIC FACTOR 2022-01-30 18:10:00 CH I [facility] (BNP) Center XR CHEST 1 VW 2021-11-09 21:07:00 Troy Ku Mckenzie [facility] POCT GLUCOSE (AUTOMATED) 2021-11-09 20:25:00 Troy Ku [facility] MAGNESIUM 2021-11-09 20:19:00 Troy Ku Mckenzie [facility] TROPONIN I 2021-11-09 20:19:00 Tory Ku Mckenzie [facility] COMP. METABOLIC PANEL 2021-11-09 20:19:00 Troy Ku [facility] ([id number]) [facility] CBC WITH DIFF 2021-11-09 20:19:00 Troy Ku Mckenzie [facility] N-TERMINAL PRO-BNP 2021-11-09 20:19:00 Troy Ku [facility] XR CHEST 1 VW 2021-11-05 06:38:35 Mihaela Martin [facility] [id number] 2020-08-11 00:00:00 ALDMO [facility] [id number] 2020-08-11 00:00:00 ALDMO [facility] [id number] 2020-08-11 00:00:00 ALDMO [facility] [id number] 2020-08-11 00:00:00 ALDMO [facility] Computed tomography 2017-10-24 00:00:00 BROOKE ALEXIS LUCY Hubbard Patient angiography of brain Medical Agustin ter CT angiography of chest 2017-10-23 00:00:00 KHAI WAHL V C [facility] Patient Medical Center Computed tomography of 2017-10-23 00:00:00 KHAI WAHL V [facility] Patient brain without radiopaque Medical Center contrast Computed tomography of 2017-04-04 00:00:00 JACQUELYN MONTES DE [facility]CA [facility] Patient brain without radiopaque Medical Center contrast Computed tomography of 2017-04-04 00:00:00 SWEETJACQUELYN A [facility] Patient cervical spine without Medical C enter contrast US abdomen complete 2017-03-08 00:00:00 SCOTT AMIN LUCY [facility] Patient Medical Center Encounters Start End Encounter Admission Attending Care Care Encounter Source Date/Time Date/Time Type Type Clinicians Facility Department ID 2021-06-17 Outpatient [id number] ENCKY MALDONADO [id number] [facility] 10:24:03 [id number] [facility] 2021-06-17 Outpatient 3 [id number] ENCKY REF [id number] [facility] 10:22:04 [id number] [facility] 2021-03-22 Emergency [facility] [id number] Univers 15:25:20 ity of [facility] 2021-03-22 Emergency [facility] [id number] Univers 10:56:41 ity of [facility] 2021-03-21 Emergency [facility] [id number] Univers 18:15:08 ity of [facility] 2021-03-21 Emergency [facility] [id number] Univers 17:18:22 ity of [facility] 2021-03-21 Emergency [facility] [id number] Univers 12:58:19 ity of [facility] 2021-03-21 Emergency [facility] [id number] Univers 04:06:22 ity of [facility] 2021-03-21 Emergency [facility] [id number] Univers 00:12:27 ity of [facility] 2021-03-20 Emergency [facility] [id number] Univers 00:55:44 ity of [facility] 2021-03-19 Emergency [facility] [id number] Univers 17:28:47 ity of [facility] 2021-03-19 Emergency [facility] [id number] Univers 03:16:03 ity of [facility] 2021-03-18 Emergency [facility] [id number] Univers 13:56:50 ity of [facility] 2020-08-23 Inpatient HCACL FERNANDO [id number] [facility] 17:41:00 84 [facility] 2020-04-04 Inpatient Marko, HCAMN HCAMN [id number] [facility] 14:40:00 Edward 33 [facility] 2019-10-15 Inpatient RADHA Shah, HCAPM ENDO [id number] [facility] 15:30:00 Finn [id number] [facility] 2022-04-19 2022-04-19 Orders Doctor JOSE 1.2.840.114 [id number] Univers 00:00:00 00:00:00 Only Unassigned, [place] [id number] ity of [place] [facility] [id number] Juan J as [id number] [facility] 009 Branch 2022-02-11 2022-02-11 Transition CLAUDETTE HardingTanya 1.2.840.114 [id number] Univers 00:00:00 00:00:00 of Care Josselyntoni DUQUE [id number] it y of [id number] [id number] [facility] 403 Branch 2022-02-09 2022-02-10 Outpatient U JAE [facility] DARIUS [id number] Univers 19:53:00 13:45:00 ADMARILU ity of [facility] 2022-02-09 2022-02-10 Hospital Ana Maria Meza [facility] 1.2.840.114 [id number] Univers 19:53:00 13:45:00 Encounter Martha Rowe [id number] ity of [place] [id number] [place] [facility] [id number] [facility] 081 Branch 2022-01-30 2022-01-30 [facility] [id number] 00:00:00 00:00:00 Requisitio Esme [facility] 2022-01-30 2022-01-30 Lab [facility] [id number] 00:00:00 00:00:00 Requisitiji Victoria [facility] 2021-11-09 2021-11-09 Emergency X HEBERT, K [facility] ERT [id number] Univers 15:15:00 18:32:00 ity of [facility] 2021-11-09 2021-11-09 Emergency Troy Ku [facility] 1.2.840.114 [id number] Univers 15:15:00 18:32:00 Mckenzie PEREZ [id number] i ty of [place]ANCHRI[place] [id number] [facility] [id number] [place] [id number] Branch 2021-11-05 2021-11-05 Emergency [facility] [id number] Univers 00:44:00 06:53:00 MIHAELA baugh [facility] 2021-11-05 2021-11-05 Emergency [facility] [id number] Univers 00:44:00 06:53:00 Mihaela PEREZ [id number] ity [facility] [id number] [facility] [id number] [facility] 084 Branch 2021-11-04 2021-11-04 Transition Feliciano CLAUDETTETanya 1.2.840.114 [id number] Univers 00:00:00 00:00:00 of Jennifer DUQUE [id number] it y of [place] [id number] [facility] [place] [id number] [facility] 403 Branch 2021-11-02 2021-11-03 Outpatient X BRAYDON [facility] DARIUS [id number] Univers 22:35:00 15:46:00 OC baugh [facility] 2021-11-02 2021-11-03 Emergency Curtis Xavier [facility] 1.2.840. 114 [id number] Univers 22:35:00 15:46:00 Oc Bryson [id number] ity of [facility] [id number] [facility] [id number] [facility] 081 Branch 2021-11-02 2021-11-03 Outpatient X BRAYDON [facility] DARIUS [id number] Univers 22:35:00 15:46:00 OC baugh [facility] 2021-11-01 2021-11-01 Transition LATRICE Feliciano 1.2.840.114 [id number] Univers 00:00:00 00:00:00 of Care Micaela DUQUE [id number] it y of [place] 4.2.7.2.686 [facility] [place] [id number] [facility] 403 Branch 2021-10-27 2021-10-29 [facility] [id number] Univers 17:41:00 14:03:00 ANA MARIA vashti [facility] 2021-10-27 2021-10-29 Emergency Jameson Mejia [facility] 1.2.840. 114 [id number] Univers 17:41:00 14:03:00 Lizett Gerardo [id number] ity of [place] Meza [id number] [facility] [id number] [address] 2021-10-27 2021-10-29 [facility] [id number] Univers 17:41:00 14:03:00 ANA MARIA vashti [facility] 2021-10-21 2021-10-22 Emergency [facility] E[facility] [id number] Univers 20:24:00 04:18:00 JYOTI vashti [facility] 2021-10-21 2021-10-22 Emergency [facility] [id number] Univers 20:24:00 04:18:00 Jyoti PEREZ [id number] [facility] [id number] [facility] 084 Branch 2021-10-20 2021-10-20 Transition LATRICE Aleman 1.2.840.114 [id number] Univers 00:00:00 00:00:00 of Care Rico DUQUE [id number] ity of [id number] [id number] [facility] 403 Branch 2021-10-15 2021-10-18 Outpatient X DERRICK [facility] DARIUS [id number] Univers 16:42:00 13:52:00 ANA MARIA singhvashti [facility] 2021-10-15 2021-10-18 Emergency Jameson Mejia [facility] 1.2.840. 114 [id number] Univers 16:42:00 13:52:00 Ana Maria Meza [id number] ity of [id number] [facility] [id number] [facility] 081 Branch 2021-07-23 2021-07-23 Transition LATRICE Farooq 1.2.840.114 [id number] Univers 00:00:00 00:00:00 of Care Marcella [place] [id number] i ty [id number] [id number] [address] 2021-07-19 2021-07-22 Inpatient [facility] [id number] Univers 09:10:00 17:00:00 GEOFFREY baugh [facility] 2021-07-19 2021-07-22 [facility] Brandyn Dumont [facility] 1.2.840.1 [id number] Univers 09:10:00 17:00:00 Encounter Geoffrey Hill [facility] [id number] ity of [place].2.[place] MEJIA [id number] [facility] 109 Branch (CLC) 2021-07-21 2021-07-21 Outpatient Wong_H VFP VFP [id number] Village 06:58:00 06:58:00 [id number] Family Practic e 2021-07-13 2021-07-13 Transition LATRICE Aleman 1.2.840.114 [id number] Univers 00:00:00 00:00:00 of Care Rico DUQUE [id number] [place]y [place] [id number] [place] [address] Branch 2021-06-28 2021-07-12 Inpatient X REBECCA [facility] DARIUS [id number] Univers 10:43:00 18:25:00 AMBIKA singhvashti [facility] 2021-06-28 2021-07-12 [facility] Jameson Mejia [facility] 1.2.840.1 [id number] Univers 10:43:00 18:25:00 Encounter Tryo Ku [id number] ity of Ambika Fernandez [place] 4.2.7.2.686 [facility] [id number] [facility] 081 Branch 2021-02-15 2021-02-15 [facility] [id number] Univers 15:00:00 15:00:00 ALECIA [facility] 2021-01-11 2021-01-11 [facility] [id number] Univers 10:45:00 10:45:00 GINA baugh o anuj [facility] 2021-01-05 2021-01-05 Transition Latrice Aleman 1.2.840.114 [id number] Univers 00:00:00 00:00:00 of Care Rico Duque [id number] ity of [place] [id number] [facility] [place] [id number] [facility] 403 Branch 2021-01-01 2021-01-04 [facility] Wayne Can [facility] 1.2.840.1 14 [id number] Univers 14:18:00 18:10:00 Encounter Lizett Gerardo [id number] ity of [id number] [id number] [facility] 081 Branch 2021-01-01 2021-01-01 Orders Doctor JOSE 1.2.840.114 [id number] Univers 00:00:00 00:00:00 Only Unassigned, [place] [id number] ity of [place] [facility] 4.2.7.2.686 Juan J as [id number] [facility] 009 Branch 2020-12-17 2020-12-17 Transition Latrice [place]ing 1.2.840.114 [id number] Univers 00:00:00 00:00:00 of Care Josselyn Duque 350.1.13.10 it y of [place] 4.2.7.2.686 [facility] [phone] [facility] 403 Branch 2020-12-14 2020-12-16 Emergency Jyoti Cedeno S [facility] 1.2.840.1 14 [id number] Univers 17:50:00 17:46:00 Ana Maria Meza 350.1.13.10 ity of [place] 4.2.7.2.686 [facility] [phone] [facility] 081 Branch 2020-11-16 2020-11-16 Orders Doctor JOSE 1.2.840.114 [id number] Univers 00:00:00 00:00:00 Only Unassigned, CAROLINA 350.1.13.10 ity of [place] [facility] 4.2.7.2.686 [facility] [phone] [facility] 009 Branch 2020-10-30 2020-11-05 Inpatient EM [facility] [id number] [facility] 16:50:00 13:52:00 Fede 32766 [facility] 2020-10-31 2020-10-31 Outpatient ANNEL Carrera LABO [id number] [facility] 08:22:00 08:22:00 Fede 73 [facility] 2020-10-28 2020-10-28 Hospital Radiology [facility] 1.2.840.114 [id number] Univers 08:30:17 23:59:00 Encounter Sera 350.1.13.10 ity of [place] 4.2.7.2.686 [facility] [phone] [facility] 807 Branch 2020-10-28 2020-10-28 Hospital Radiology [facility] 1.2.840.114 [id number] 08:30:17 23:59:00 Encounter [place] 350.1.13.10 [place] 4.2.7.2.686 [place] [id number] 807 2020-10-28 2020-10-28 Outpatient R RADIOLOGY [facility] [id number] Univers 00:00:00 00:00:00 ity of [facility] 2020-10-12 2020-10-12 [facility] 1.2.840.114 [id number] Univers 14:02:10 14:50:48 Visit Bryan Sera 350.1.13.10 i [place] [phone] [place] dical [facility] 204 [facility] 2020-10-12 2020-10-12 [facility] [id number] Univers 14:00:00 14:50:48 BRYAN ity [facility] 2020-10-12 2020-10-12 [facility] [id number] Univers 14:00:00 14:00:00 [facility] 2020-10-06 2020-10-06 Office [facility] 1.2.840.114 [id number] Univers 10:43:51 11:59:29 Visit Gina Perez 350.1.13.10 ity [facility] [place] [phone] Va dical [address] 2020-10-06 2020-10-06 Office [facility] 1.2.840.114 [id number] 10:43:51 11:59:29 Visit Gina Perez 350.1.13.10 [place] 4.2.7.2.686 Professio [phone] [address] 2020-10-06 2020-10-06 [facility] [id number] Univers 10:30:00 10:30:00 GINA baugh o f [facility] 2020-10-06 2020-10-06 Orders Doctor GARCIA 1.2.840.114 [id number] Univers 00:00:00 00:00:00 Only Unassigned, CAROLINA 350.1.13.10 ity of [place] [facility] 4.2.7.2.686 Juan J as [phone] [address] 2020-09-28 2020-09-28 Emergency [facility] 1.2.840.114 [id number] Univers 17:28:00 21:08:00 Óscar Anuj Perez 350.1.13.10 ity of [place] 4.2.7.2.686 [facility] [id number] [facility] 084 Branch 2020-09-28 2020-09-28 Transition Latrice French 1.2.840.114 [id number] Univers 00:00:00 00:00:00 of Care Gilda Duque 350.1.13.10 [place] [phone] [facility] 403 Branch 2020-09-23 2020-09-26 [facility] Juan José Wayne [facility] 1.2.840.1 14 [id number] Univers 13:50:00 18:28:00 Encounter Ambika Fernandez 350.1.13.10 ity of [place] 4.2.7.2.686 [facility] [phone] [place] 377261 [place] 2020-09-23 2020-09-26 Inpatient X GABRIELEALEJANDRA [facility] [id number] Univers 13:50:00 18:28:00 AMBIKA baugh [facility] 2020-09-22 2020-09-22 Outpatient [facility] [id number] Univers 09:45:00 09:45:00 GINA palacio [facility] 2020-09-10 2020-09-10 Outpatient [facility] [id number] Univers 16:15:00 16:15:00 BRYAN baugh [facility] 2020-09-09 2020-09-09 Transition Latrice Aleamn 1.2.840.114 [id number] Univers 00:00:00 00:00:00 of Care Rico Duque 350.1.13.10 [place] [phone] [facility] 403 [place] 2020-09-08 2020-09-08 Outpatient [facility] [id number] Univers 08:30:00 08:30:00 GINA palacio [facility] 2020-09-02 2020-09-07 [facility] Jose Guy [facility] 1.2.840.114 [id number] Univers 16:46:00 18:45:00 Encounter [facility] 350. 1.13.10 ity of [place] 4.2.7.2.686 [place] Kaylyn Calvin [phone] [address] ([facility]) 2020-08-26 2020-08-26 Office Jani [facility] 1.2.840.114 [id number] Univers 10:44:06 11:14:06 Visit [facility] 350.1.13.10 it y of [place] [phone] [address] Office Building 2020-08-26 2020-08-26 Outpatient R THA GUNTER [facility] [id number] Univers 10:30:00 10:30:00 ity of [facility] 2020-08-25 2020-08-25 Outpatient R IVANA [facility] [id number] Univers 10:00:00 10:00:00 GINA palacio [facility] 2020-08-24 2020-08-24 Outpatient R YENI [facility] [id number] Univers 09:00:00 09:00:00 DEIDRE baugh [facility] 2020-08-21 2020-08-21 [facility] 1.2.840.114 [id number] Univers 08:43:52 09:13:46 Visit Gina Perez 350.1.13.10 it[place] [facility] [phone] [place] [address] Branch Building 2020-08-21 2020-08-21 Outpatient Tim HEATH [facility] [id number] Univers 08:30:00 08:30:00 GINA palacio [facility] 2020-08-10 2020-08-14 Inpatient ANNEL CareyCL INTE.02 [id number] [facility] 09:09:00 18:56:00 Johnie [facility] 2020-08-11 2020-08-11 Outpatient [facility] [id number] Univers 09:15:00 09:15:00 GINA palacio [facility] 2020-08-07 2020-08-07 Outpatient [facility] [id number] Univers 10:00:00 10:00:00 GINA palacio [facility] 2020-07-27 2020-08-06 [facility] Jameson Mejia 1.2.840.1 14 [id number] Univers 12:13:00 17:15:00 Encounter Minnie Cardona 350.1.13.10 ity of [facility] 4.2.7.2.686 [place] Drew Noriega [phone] [facility] Johnie Skinner 090 [place] 2020-07-27 2020-08-06 Inpatient JOHNIE SKINNER [facility] [id number] Univers 12:13:00 17:15:00 ity of [facility] 2020-07-24 2020-07-24 Outpatient R [facility] [id number] Univers 13:00:00 13:00:00 GINA palacio [facility] 2020-07-21 2020-07-21 Transition Latrice Aleman 1.2.840.114 [id number] Univers 00:00:00 00:00:00 of Care Rico Duque 350.1.13.10 ity of [place] 4.2.7.2.686 Noe beckett [phone] [place] [address] Branch 2020-07-10 2020-07-20 [facility] Janeth Leal 1.2.84 0.114 [id number] Univers 19:24:00 21:51:00 Encounter Oc Bryson 350.1.13.10 ity [address] Janeth Leal [facility] 4.2.7.2.686 [place] Minnie Cardona [phone] Medical Lisa Marroquin 0[address] fant[address] 2020-07-17 2020-07-17 Outpatient [facility] [id number] Univers 10:00:00 10:00:00 JOSE itvashti [facility] 2020-07-10 2020-07-10 Outpatient R IVANA [facility] [id number] Univers 08:45:00 08:45:00 GINA amauri o f [facility] 2020-06-15 2020-06-15 Telephone [facility] 1.2.321.403 [id number] Univers 00:00:00 00:00:00 Jose Perez 350.1.13.10 i ty of [place] [facility] [phone] Va dical nal 204 [address] Building 2020-06-11 2020-06-11 Office [facility] 1.2.840.114 [id number] Univers 13:43:55 13:58:55 Visit [facility] 350.1.13.10 it y of [place]2.686 [place] [facility] [phone] Med ical [facility] 188 Branch 2020-06-11 2020-06-11 Outpatient R JANKI [facility] [id number] Univers 13:30:00 13:30:00 JOSE baugh [facility] 2020-06-03 2020-06-03 Transition LoveClaudette bennetttanya 1.2.840.114 [id number] Univers 00:00:00 00:00:00 of Care Rico Duque 350.1.13.10 it[place] [phone] [facility] 403 Branch 2020-05-29 2020-06-02 [facility] Jameson Mejia [facility] 1.2.840.1 14 [id number] Univers 09:12:00 16:02:00 Encounter Lizett Gerardo 350.1.13.10 ity of [place] 4.2.7.2.686 [facility] [phone] [facility] 081 Branch 2020-05-29 2020-06-02 Inpatient X JAE [facility] [id number] Univers 09:12:00 16:02:00 MARTHA baugh [facility] 2020-05-29 2020-05-29 Outpatient R JANKI [facility] [id number] Univers 10:15:00 10:15:00 JOSE baugh [facility] 2020-04-23 2020-04-23 Office [facility] 1.2.840.114 [id number] Univers 13:48:18 14:03:18 Visit [facility] 350.1.13.10 it y of [place] - [phone] [facility] 188 [place] 2020-04-23 2020-04-23 Outpatient [facility] [id number] Univers 13:30:00 13:30:00 JOSE baugh [facility] 2020-04-23 2020-04-23 Orders Doctor JOSE 1.2.840.114 [id number] Univers 00:00:00 00:00:00 Only Unassigned, [place] 350.1.13.10 ity of [place] [facility] 4.2.7.2.686 Juan J as [phone] [facility] 009 [place] 2020-04-09 2020-04-09 Office [facility] 1.2.840.114 [id number] Univers 13:58:45 14:13:45 Visit [facility] 350.1.13.10 it y of [place] Cancer 4.2.7.2.686 [facility] - [phone] Med [address] 2020-04-09 2020-04-09 Outpatient [facility] [id number] Univers 14:00:00 14:00:00 JOSE vashti [facility] 2020-03-27 2020-03-27 Transition Latrice Aleman 1.2.840.114 [id number] Univers 00:00:00 00:00:00 of Care iRco Duque 350.1.13.10 [place].2.[place] [phone] [facility] 403 Branch 2020-03-15 2020-03-26 Hospital Jameson Mejia 1.2.840.1 14 [id number] Univers 23:48:00 18:02:00 Encounter Kandis Hough 350.1.13.10 ity of [facility] 4.2.7.2.68 6 [place] [phone] [facility] 098 Branch 2020-03-18 2020-03-18 Anesthesia Caio Najera Nancy 1. 2.840.114 [id number] Univers 13:52:00 16:42:00 Stephanie Franks 350.1.13.[address] [facility] 4.2.7.2.686 Juan J as [phone] [facility] 103 Branch 2020-02-06 2020-02-06 Transition Latrice Aleman 1.2.840.114 [id number] Univers 00:00:00 00:00:00 of Care Rico Zelayay 350.1.13.10 [place] [id number] [facility] 403 [address] 2020-02-03 2020-02-05 [facility] Óscar Hermosillo [facility] 1.2.8 40.114 [id number] Univers 16:55:00 20:40:00 Encounter Martha Rowe 350.1.13.10 it[place].2.[place] [phone] [address] 2020-01-17 2020-01-17 Outpatient [facility] [id number] Univers 13:30:00 13:30:00 SENDIL ity of [facility] 2019-12-02 2019-12-02 Outpatient R [facility] [id number] Univers 15:00:00 15:00:00 ity of [facility] 2019-11-16 2019-11-21 [facility] Lopez Velazquez [facility] 1.2.840 .114 [id number] Univers 16:35:23 14:12:00 Encounter Heather Hermosillo 350.1.13.1 0 ity of [place] 4.[place].2.[place] [phone] [address] 2019-09-17 2019-09-18 [facility] 1.2.994.030 [id number] Univers 20:30:04 00:41:00 Valery Perez 350.1.13.10 ity of [place] 4.2.7.2.[place] [phone] [place] 377264 [place] 2019-09-17 2019-09-18 Emergency X ALFIE, [facility] ERT [id number] Univers 20:30:04 00:41:00 WAKILI ity [facility] 2019-09-05 2019-09-05 Outpatient [facility] [id number] Univers 14:00:00 14:00:00 SENDIL ity [facility] 2019-09-05 2019-09-05 Telemedici [facility] 1.2.840.114 [id number] Univers 08:17:17 08:47:17 ne Visit Sendil Hannah Perez 350.1.13.10 it[place] of [place] [phone] Va dic[address] 2019-09-05 2019-09-05 Telephone [facility] 1.2.689.636 [id number] Univers 00:00:00 00:00:00 Sendil Hannah Perez 350.1.13.10 [place].2.[place] [phone] Va dictn nal [address] [place] [address] 2019-09-03 2019-09-03 Outpatient R ANNA [facility] [id number] Univers 10:30:00 10:30:00 SENDIL ity [facility] 2019-08-20 2019-08-20 Telephone [facility] 1.2.962.767 [id number] Univers 00:00:00 00:00:00 Nika SHAW 350.1.13.10 ity of [place].2.7.2.[place] [facility] [phone] Va dical [address] [place] 2019-08-19 2019-08-19 Refill Nancy Lee 1.2.840.114 [id number] Univers 00:00:00 00:00:00 Lola Figueroa 350.1.13.10 it y of Hospital 4.2.7.2.686 Juan J as [phone] [facility] 090 [place] 2019-08-16 2019-08-16 Refill Nancy Lee 1.2.840.114 [id number] Univers 00:00:00 00:00:00 Lola Carolina 350.1.13.[address] [facility] 4.2.7.2.686 Juan J as [phone] [facility] 090 Branch 2019-08-15 2019-08-15 Emergency Luis, [facility] 1.2.840.114 [id number] Univers 11:58:21 15:28:00 Demarcus Perez 350.1.13.10 i ty of [place] 4.2.[place].2.[place] [phone] [facility] 084 Branch 2019-08-15 2019-08-15 Emergency X LUIS, [facility] ERT [id number] Univers 11:58:21 15:28:00 DEMARCUS ity [facility] 2019-08-15 2019-08-15 Case AnnaJOSE 1.2.840.114 [id number] Univers 00:00:00 00:00:00 Management Ninfa FIGUEROA 350.1.13.10 ity [facility] 4.2.7.2.686 Juan J as [phone] [facility] 008 Branch 2019-08-15 2019-08-15 Telephone Anna [facility] 1.2.389.817 [id number] Univers 00:00:00 00:00:00 Ninfa Perez 350.1.13.10 it[place] of [place].2.[place] [facility] [phone] [facility] 059 [facility] 2019-08-12 2019-08-12 Transition Latrice Ramirez 1.2.840.114 [id number] Univers 00:00:00 00:00:00 of Care Joan George 350.1.13.10 [place] [phone] [facility] 403 [address] 2019-08-06 2019-08-09 Emergency Wayne Can [facility] 1.2.840. 114 [id number] Univers 14:06:47 15:19:00 Lizett Gerardo 350.1.13.10 ity of [place] 4.2.[place].2.[place] [phone] [facility] 081 Branch 2019-08-06 2019-08-09 Outpatient X HUMAIRA, [facility] [id number] Univers 14:06:47 15:19:00 LIZETT ity of [facility] 2019-08-06 2019-08-06 Outpatient R TRAVIS, [facility] [id number] Univers 13:30:00 13:30:00 RICHMOND singhy o f [facility] 2019-08-06 2019-08-06 Outpatient R TRAVIS, [facility] [id number] Univers 11:00:00 11:00:00 RICHMOND singhy o f [facility] 2019-08-06 2019-08-06 Outpatient R TRAVIS, [facility] [id number] Univers 11:00:00 11:00:00 JUNIEJULIANN baugh o [facility] 2019-08-06 2019-08-06 Orders Doctor JOSE 1.2.840.114 [id number] Univers 00:00:00 00:00:00 Only Unassigned, [place] 350.1.13.10 ity of [place] [facility] 4.2.7.2.686 Juan J as [phone] [facility] 009 Branch 2019-07-19 2019-07-19 Transition Latrice French 1.2.840.114 [id number] Univers 00:00:00 00:00:00 of Care Gilda Duque 350.1.13.10 it [place] [id number] [facility] 403 [address] 2019-07-17 2019-07-18 Emergency Valery Carrillo S Nancy 1.2.840 .114 [id number] Univers 21:36:10 21:05:00 Kendra Vaca [place] 350.1.13.1 0 ity of Hospital 4.2.7.2.686 Juan J as [phone] [facility] 090 Branch 2019-07-17 2019-07-18 Outpatient X [facility] [id number] Univers 21:36:10 21:05:00 NOLA TAREQ ity of [facility] 2019-07-03 2019-07-03 Transition Latrice French 1.2.840.114 [id number] Univers 00:00:00 00:00:00 of Care Gilda Duque 350.1.13.10 it [place].2.[place] [phone] [facility] 403 [address] 2019-07-01 2019-07-01 Transition Latrice French 1.2.840.114 [id number] Univers 00:00:00 00:00:00 of Care Gilda Duque 350.1.13.10 it [place].2.[place] [id number] [facility] 403 [address] 2019-06-27 2019-06-27 Transition Latrice French 1.2.840.114 [id number] Univers 00:00:00 00:00:00 of Care Gilda Duque 350.1.13.10 it [place] [phone] [facility] 403 [place] 2019-06-24 2019-06-26 [facility] [id number] Univers 14:51:01 18:37:00 MICHAEL ity of [facility] 2019-06-24 2019-06-26 Hospital Janeth Leal 1.2.84 0.114 [id number] Univers 14:51:01 18:37:00 Encounter Michael Shirley 350.1.[address] [facility] 4.2.7.2.686 Juan J as [phone] [facility] 090 Branch 2019-02-06 2019-02-06 Telephone JOSE Bhatt 1.2.840.114 [id number] Univers 00:00:00 00:00:00 Cortney FIGUEROA 350.1.13.10 i ty of [facility] 4.2.7.2.686 Juan J as [id number] [facility] 008 Branch 2019-02-05 2019-02-05 Emergency [facility] 1.2.825.584 [id number] Univers 17:30:29 21:52:00 Jyoti Perez 350.1.13.10 i ty of [place] 4[place]2.7.2.[place] [phone] [place] [address] Branch 2019-01-30 2019-01-30 Transition Latrice Quevedo 1.2.840.114 [id number] Univers 00:00:00 00:00:00 of Care Rhonda Duque 350.1.13.10 it y [place].2.[place] [id number] [facility] 403 [address] 2019-01-24 2019-01-29 [facility] Wayne Can 1.2.840.1 14 [id number] Univers 16:01:37 14:55:00 Encounter Dennis Finley 350.1.13.[address] [facility] 4.2.7.2.686 Juan J as [phone] [place] [address] Branch 2019-01-22 2019-01-22 Transition Claudette Quevedotanya 1.2.840.114 [id number] Univers 00:00:00 00:00:00 of Care Rhonda Duque 350.1.13.10 it y [place] [phone] [facility] 403 Branch 2019-01-16 2019-01-19 [facility] Carlos Allen 1.2.840.11 [id number] Univers 23:52:03 14:36:00 Encounter Jae Martha Figueroa 350.1.13.10 ity of Most Maliajuanjomargareth [facility] 4.2.7.2.686 [place] [id number] [place] [address] Branch 2017-10-23 2017-10-27 Discharged 1 [facility] [id number] 17:29:00 16:54:00 Inpatient ALEXIS 90 [place] [facility] 2017-04-03 2017-04-04 [id number] 23:17:00 03:53:00 Emergency LAIRD 56 [place] Room [facility] 2017-03-05 2017-03-09 Discharged ER PHILIP [facility] [id number] 06:54:00 10:58:00 Inpatient NICHELLE 46 [place] (obs) Patient [facility] 2017-01-04 2017-01-05 Discharged [facility] [id number] 10:33:00 18:56:00 Inpatient 63 [place] [facility] Orders Doctor JOSE 1.2.840.114 [id number] Univers 00:00:00 00:00:00 Only Unassigned, [place] 350.1.13.10 ity of [place] [facility] 4.2.7.2.686 Juan J as [phone] [facility] uriel 009 Branch Results Test Description Test Time Test Comments Results Result Comments Source Transthoracic echo (TTE) 2022-02-10 17:43:07 Test Item Value Reference Range Interpretation Comme nts Height (test code = 6213329539) in Weight (test code = 4014134518) lbs Systolic BP (test code = 8046076172) mmHg Diastolic BP (test code = 9482688423) mmHg Heart Rate (test code = 7192277663) bpm BSA (test code = 2314584696) 1.86 m2 Ao root diam (test code = 6564156052) 3.10 cm Aortic root (test code = 9709808477) 3.1 cm Ao root annulus (test code = 3.1 cm 4673304606) LVOT diameter (test code = 1.83 cm 6512812151) LVOT area (test code = 4495337410) 2.60 cm2 LVIDD (test code = 0013544070) 4.80 cm Left Ventricular End Diastolic Volume 107.5 mL by Teichholz Method (test code = 0726307) IVS (test code = 5810328070) 1.35 cm Interventricular Septum Diastolic 1.35 cm Thickness by 2D (test code = 4887067) LVPWD (test code = 9065942185) 1.35 cm PW (test code = 3281918302) 1.35 cm 0.6-1.1 EF(Teich) (test code = 5057671969) 30.10 % LVIDS (test code = 1084051986) 4.10 cm Left Ventricular End Systolic Volume 75.1 mL by Teichholz Method (test code = 9607134) FS (test code = 6658733975) 14 % EF - 2D (test code = 93599839) 30.10 % LA size (test code = 7357166918) 4.1 cm TR Peak Haile (test code = 8207311820) 232.4 cm/s Triscuspid Valve Regurgitation Peak mmHg Gradient (test code = 3126074968) LAV(MOD-sp4) (test code = 1190982408) 103.10 mL E wave decelartion time (test code = 0.15 s 4352924543) MV stenosis pressure 1/2 time (test 44.6 ms code = 1254836809) MV Peak E Haile (test code = 110.2 cm/s 4990927944) MV Peak A Haile (test code = 28.7 cm/s 1184223396) E/A ratio (test code = 1401465766) ratio MR max PG (test code = 8137477507) 78.70 mm[Hg] MR max haile (test code = 0162159349) 443.40 cm/s Mr max haile (test code = 7720181171) 443.4 m/s MV Prop V (test code = 1309214919) 45.00 cm/s MV E/e' septal (test code = 9.2 cm/s 5307732346) Tapse (test code = 9243196465) 1.53 cm LVOT stroke volume (test code = 41.70 cm3 2355388463) LVOT peak haile (test code = 87.2 cm/s 8407837828) LVOT mn grad (test code = 8019155888) mmHg AV LVOT peak gradient (test code = mmHg 7581256882) LVOT peak VTI (test code = 15.8 cm 8420395851) LV V1 mean (test code = 7927253037) 51.30 cm/s Aortic valve mean velocity (test code 78.3 cm/s = 4988728433) Ao peak haile (test code = 6876782344) 111.8 cm/s Ao VTI (test code = 6698839415) 21.5 cm AV area by cont VTI (test code = 1.9 cm2 4226967944) AV area peak haile (test code = 2.1 cm2 4451901424) Ao max PG (test code = 8235150919) 5.00 mm[Hg] AV peak gradient (test code = mmHg 8061602325) AV valve area (test code = 1.94 cm2 7179000695) AV mean gradient (test code = mmHg 7831453579) Radiology Study observation (narrative) (test code = 26280-8) DIANE (test code = DIANE) Table formatting [...] lateral and apex.All other segments are normal. [id number] Test Item Value Reference Interpretation Comments Range TROPONIN I (test 0.021 ng/mL See_Comment [Automated code = 3887872398) message] The system which generated this result [...] biotin. Lab Interpretation Normal (test code = 84660-4) [facility]23 Test Item Value Reference Range Interpretation Comments MAGNESIUM (test code = 3883492214) 1.7 mg/dL 1.7-2.4 Lab Interpretation (test code = Normal 21427-1) [facility] (96385)2022-02-10 11:50:22 Test Item Value Reference Range Interpretation Comments NA (test code = 138 mmol/L 135-145 3930478273) K (test code = 3.9 mmol/L 3.5-5 8262698924) CL (test code = 108 mmol/L 98-108 6883233934) CO2 TOTAL (test code = 24 mmol/L 23-31 3351725567) AGAP (test code = 2-16 2459847474) BUN (test code = 19 mg/dL 7-23 5462524509) GLUCOSE (test code = 117 mg/dL 70-110 H 8641209246) CREATININE (test code = 0.91 mg/dL 0.6-1.25 7129524196) TOTAL BILI (test code = 1.0 mg/dL 0.1-1.8 0419697365) CALCIUM (test code = 8.5 mg/dL 8.6-10.6 L 7265118904) T PROTEIN (test code = 6.4 g/dL 6.3-8.2 6691235727) ALBUMIN (test code = 3.4 g/dL 3.5-5 L 1127181372) ALK PHOS (test code = 177 U/L 34-122 H 3746573696) ALTv (test code = 24 U/L 5-50 1742-6) AST(SGOT) (test code = 38 U/L 13-40 2447835251) eGFR (test code = mL/min/1.73m2 8734821974) DIANE (test code = DIANE) Association of [...] tests). Lab Interpretation Abnormal (test code = 20720-9) [facility]22 Test Item Value Reference Range Interpretation Comments PHOSPHORUS (test code = 8147928690) 5.1 mg/dL 2.5-5 H Lab Interpretation (test code = Abnormal 76927-0) [facility] WITH [id number] 11:19:02 Test Item Value Reference Range Interpretation [...] RDW-SD (test code = 48.0 fL 38.5-51.6 08814-6) RDW-CV (test code = 14.2 % 12.1-15.4 788-0) PLT (test code = See_Comment [Automated 777-3) message] The sy stem which generated this result transmitted reference range : 150 - 328 10*3/ ?L. The reference r batsheva was not used to interpret this result as normal/abnormal . MPV (test code = 10.2 fL 9.8-13 89222-2) NRBC/100 WBC (test See_Comment [Automat ed code = 3066860925) message] The system which generated this result transmitted reference range : 0.0 - 10.0 /100 WBCs. The refer ence range was not u sed to interpret th is result as normal/abnormal . NRBC x10^3 (test code See_Comment [Auto mated = 0736114669) message] The s ystem which generated this result transmitted reference range : 10*3/?L. The reference range was not used to interpret this result as normal/abnormal . GRAN MAT (NEUT) % 68.5 % (test code = 770-8) IMM GRAN % (test code 0.40 % = 7612037608) LYMPH % (test code = 19.0 % 736-9) MONO % (test code = 8.3 % 5905-5) EOS % (test code = 3.4 % 713-8) BASO % (test code = 0.4 % 706-2) GRAN MAT x10^3(ANC) 3.65 10*3/uL 1.99-6.95 (test code = 0652103880) IMM GRAN x10^3 (test 0-0.06 code = 3965056600) LYMPH x10^3 (test code 1.01 10*3/uL 1.09-3.23 L = 731-0) MONO x10^3 (test code 0.44 10*3/uL 0.36-1.02 = 742-7) EOS x10^3 (test code = 0.18 10*3/uL 0.06-0.53 711-2) BASO x10^3 (test code 0.01-0.09 = 704-7) Lab Interpretation Abnormal (test code = 38048-7) [facility]2022-01-30 23:33:12 Test Item Value Reference Range Interpretation Comments BNP (test code = 87219-6) 443 pg/mL 0-100 H DIANE (test code = DIANE) [employer] ID - ADRY Lab Interpretation (test Abnormal code = 00770-7) [facility] 23:33:12 Test Item Value Reference Range Interpretation Comments BNP (test code = 63856-7) 443 pg/mL 0-100 H DIANE (test code = DIANE) [employer] ID - ADRY Lab Interpretation (test Abnormal code = 17752-7) [facility]2022-01-30 23:33:12 Test Item Value Reference Range Interpretation Comments BNP (test code = 82957-1) 443 pg/mL 0-100 H DIANE (test code = DIANE) [employer] ID - ADRY Lab Interpretation (test Abnormal code = 67214-4) [facility]2022-01-30 23:33:12 Test Item Value Reference Range Interpretation Comments BNP (test code = 85272-6) 443 pg/mL 0-100 H DIANE (test code = DIANE) [employer] ID - ADRY Lab Interpretation (test Abnormal code = 04015-4) [facility]2022-01-30 23:33:12 Test Item Value Reference Range Interpretation Comments BNP (test code = 41371-4) 443 pg/mL 0-100 H DIANE (test code = DIANE) [employer] ID - ADRY Lab Interpretation (test Abnormal code = 98269-8) [facility]2022-01-30 23:33:12 Test Item Value Reference Range Interpretation Comments BNP (test code = 70030-0) 443 pg/mL 0-100 H DIANE (test code = DIANE) [employer] ID - ADRY Lab Interpretation (test Abnormal code = 96940-9) [facility]2022-01-30 23:33:12 Test Item Value Reference Range Interpretation Comments BNP (test code = 83026-5) 443 pg/mL 0-100 H DIANE (test code = DIANE) [employer] ID - ADRY Lab Interpretation (test Abnormal code = 56122-1) [facility]2022-01-30 23:33:12 Test Item Value Reference Range Interpretation Comments BNP (test code = 84425-5) 443 pg/mL 0-100 H DIANE (test code = DIANE) [employer] ID - ADRY Lab Interpretation (test Abnormal code = 95337-6) [facility]2022-01-30 23:33:12 Test Item Value Reference Range Interpretation Comments BNP (test code = 07354-5) 443 pg/mL 0-100 H DIANE (test code = DIANE) [employer] ID - ADRY Lab Interpretation (test Abnormal code = 72695-4) [facility]2022-01-30 23:33:12 Test Item Value Reference Range Interpretation Comments BNP (test code = 96094-5) 443 pg/mL 0-100 H DIANE (test code = DIANE) [employer] ID - ADRY Lab Interpretation (test Abnormal code = 88148-9) [facility]2022-01-30 23:33:12 Test Item Value Reference Range Interpretation Comments BNP (test code = 11906-8) 443 pg/mL 0-100 H DIANE (test code = DIANE) [employer] ID - ADRY Lab Interpretation (test Abnormal code = 11826-2) [facility]2022-01-30 23:33:12 Test Item Value Reference Range Interpretation Comments BNP (test code = 70482-6) 443 pg/mL 0-100 H DIANE (test code = DIANE) [employer] ID - ADRY Lab Interpretation (test Abnormal code = 36610-7) [facility]2022-01-30 23:33:12 Test Item Value Reference Range Interpretation Comments BNP (test code = 80806-9) 443 pg/mL 0-100 H DIANE (test code = DIANE) [employer] ID - ADRY Lab Interpretation (test Abnormal code = 05897-6) [facility] (BNP)2022-01-30 23:33:12 Test Item Value Reference Range Interpretation Comments B-TYPE NATRIURETIC PEPTIDE (BEAKER) 443 pg/mL 0-100 H (test code = 700) [employer] [facility] [id number] 20:57:59 Test Item Value Reference Interpretation Comments Range TROPONIN I (test 0.017 ng/mL See_Comment [Automated code = 9939108007) message] The system which generated this result [...] biotin. Lab Interpretation Normal (test code = 82241-7) [facility] [id number] 20:54:59 Test Item Value Reference Range Interpretation Comments NT-proBNP (test code 6490 pg/mL See_Comment H [Autom ated = 5735977750) message] The system which generated this result transmitted reference range : <=125. The reference range was not used to interpret this result as normal/abnormal . DIANE (test code = DIANE) Biotin has been reported to cause a negative bias, interpret results relative to patient's use of biotin. Lab Interpretation Abnormal (test code = 83385-4) [facility]2022-[facility] 20:46:35 Test Item Value Reference Range Interpretation Comments MAGNESIUM (test code = 2686969993) 1.5 mg/dL 1.7-2.4 L Lab Interpretation (test code = Abnormal 00891-9) [facility]COMP[facility] METABOLIC PANEL (31266)2021-11-09 20:46:34 Test Item Value Reference Range Interpretation Comments NA (test code = 140 mmol/L 135-145 4130996725) K (test code = 3.9 mmol/L 3.5-5.0 0401597475) CL (test code = 111 mmol/L 98-108 H 4835401026) CO2 TOTAL (test code = 16 mmol/L 23-31 L 2389640866) AGAP (test code = 2-16 2092156926) BUN (test code = 14 mg/dL 7-23 1178363977) GLUCOSE (test code = 189 mg/dL 70-110 H 8867577125) CREATININE (test code = 0.66 mg/dL 0.60-1.25 3547289306) TOTAL BILI (test code = 0.8 mg/dL 0.1-1.2 1452929634) CALCIUM (test code = 8.3 mg/dL 8.6-10.6 L 8964250010) T PROTEIN (test code = 6.5 g/dL 6.3-8.2 0981166916) ALBUMIN (test code = 3.3 g/dL 3.5-5.0 L 6162974774) ALK PHOS (test code = 136 U/L 34-122 H 4855865800) ALTv (test code = 18 U/L 5-50 2-6) AST(SGOT) (test code = 26 U/L 13-40 8566888576) eGFR (test code = mL/min/1.73m2 0459284946) DIANE (test code = DIANE) Association of [...] tests). Lab Interpretation Abnormal (test code = 23163-2) [facility] WITH [id number] 20:33:30 Test Item Value Reference Range Interpretation Comments WBC (test code = See_Comment [Automated 0290-2) message] The sy stem which generated this [...] RDW-SD (test code = 45.4 fL 38.5-51.6 89325-0) RDW-CV (test code = 14.2 % 12.1-15.4 788-0) PLT (test code = See_Comment [Automated 777-3) message] The sy stem which generated this result transmitted reference range : 150 - 328 10*3/ ?L. The reference r batsheva was not used to interpret this result as normal/abnormal . MPV (test code = 9.8 fL 9.8-13.0 27957-8) NRBC/100 WBC (test See_Comment [Automat ed code = 7391976837) message] The system which generated this result transmitted reference range : 0.0 - 10.0 /100 WBCs. The refer ence range was not u sed to interpret th is result as normal/abnormal . NRBC x10^3 (test code <0.01 See_Comment [Auto mated = 0591180233) message] The s ystem which generated this result transmitted reference range : 10*3/?L. The reference range was not used to interpret this result as normal/abnormal . GRAN MAT (NEUT) % 62.3 % (test code = 770-8) IMM GRAN % (test code 0.80 % = 8555297568) LYMPH % (test code = 25.1 % 736-9) MONO % (test code = 6.7 % 5905-5) EOS % (test code = 4.7 % 713-8) BASO % (test code = 0.4 % 706-2) GRAN MAT x10^3(ANC) 4.76 10*3/uL 1.99-6.95 (test code = 9445019360) IMM GRAN x10^3 (test 0.06 10*3/uL 0.00-0.06 code = 3580149930) LYMPH x10^3 (test code 1.92 10*3/uL 1.09-3.23 = 731-0) MONO x10^3 (test code 0.51 10*3/uL 0.36-1.02 = 742-7) EOS x10^3 (test code = 0.36 10*3/uL 0.06-0.53 711-2) BASO x10^3 (test code 0.03 10*3/uL 0.01-0.09 = 704-7) Lab Interpretation Abnormal (test code = 64640-7) [facility] ([facility]ATED)2021-11-09 20:27:39 Test Item Value Reference Range Interpretation Comments POCT GLU (test code = 6394551048) 190 mg/dL 70-110 H Lab Interpretation (test code = Abnormal 95188-9) [facility] [id number] 11:52:00 Test Item Value Reference Range Interpretation Comments GLUCOSE BEDSIDE TESTING (test code = 92 mg/dL 70-110 N GLUBED) GLUCOSE BEDSIDE [id number] 08:05:00 Test Item Value Reference Range Interpretation Comments GLUCOSE BEDSIDE TESTING (test code = 62 mg/dL 70-110 L GLUBED) GLUCOSE BEDSIDE [id number] 20:40:00 Test Item Value Reference Range Interpretation Comments GLUCOSE BEDSIDE TESTING (test code 105 mg/dL 70-110 N = GLUBED) GLUCOSE BEDSIDE [id number] 17:02:00 Test Item Value Reference Range Interpretation Comments GLUCOSE BEDSIDE TESTING (test code 128 mg/dL 70-110 H = GLUBED) GLUCOSE BEDSIDE [id number] 16:37:00 Test Item Value Reference Range Interpretation Comments GLUCOSE BEDSIDE TESTING (test code 105 mg/dL 70-110 N = GLUBED) GLUCOSE BEDSIDE [id number] 08:17:00 Test Item Value Reference Range Interpretation Comments GLUCOSE BEDSIDE TESTING (test code = 88 mg/dL 70-110 N GLUBED) GLUCOSE BEDSIDE [id number] 19:45:00 Test Item Value Reference Range Interpretation Comments GLUCOSE BEDSIDE TESTING (test code 115 mg/dL 70-110 H = GLUBED) GLUCOSE BEDSIDE [id number] 18:13:00 Test Item Value Reference Range Interpretation Comments GLUCOSE BEDSIDE TESTING (test code = 74 mg/dL 70-110 N GLUBED) GLUCOSE BEDSIDE [id number] 17:29:00 Test Item Value Reference Range Interpretation Comments GLUCOSE BEDSIDE TESTING (test code = 44 mg/dL 70-110 LL GLUBED) GLUCOSE BEDSIDE [id number] 12:26:00 Test Item Value Reference Range Interpretation Comments GLUCOSE BEDSIDE TESTING (test code = 96 mg/dL 70-110 N GLUBED) GLUCOSE BEDSIDE [id number] 08:21:00 Test Item Value Reference Range Interpretation Comments GLUCOSE BEDSIDE TESTING (test code = 77 mg/dL 70-110 N GLUBED) GLUCOSE BEDSIDE [id number] 20:12:00 Test Item Value Reference Range Interpretation Comments GLUCOSE BEDSIDE TESTING (test code = 91 mg/dL 70-110 N GLUBED) GLUCOSE BEDSIDE [id number] 16:42:00 Test Item Value Reference Range Interpretation Comments GLUCOSE BEDSIDE TESTING (test code 106 mg/dL 70-110 N = GLUBED) GLUCOSE BEDSIDE [id number] 11:49:00 Test Item Value Reference Range Interpretation Comments GLUCOSE BEDSIDE TESTING (test code = 89 mg/dL 70-110 N GLUBED) GLUCOSE BEDSIDE [id number] 08:22:00 Test Item Value Reference Range Interpretation Comments GLUCOSE BEDSIDE TESTING (test code = 68 mg/dL 70-110 L GLUBED) GLUCOSE BEDSIDE [id number] 20:05:00 Test Item Value Reference Range Interpretation Comments GLUCOSE BEDSIDE TESTING (test code 137 mg/dL 70-110 H = GLUBED) GLUCOSE BEDSIDE [id number] 16:42:00 Test Item Value Reference Range Interpretation Comments GLUCOSE BEDSIDE TESTING (test code = 98 mg/dL 70-110 N GLUBED) GLUCOSE BEDSIDE [id number] 11:13:00 Test Item Value Reference Range Interpretation Comments GLUCOSE BEDSIDE TESTING (test code 118 mg/dL 70-110 H = GLUBED) GLUCOSE BEDSIDE [id number] 07:37:00 Test Item Value Reference Range Interpretation Comments GLUCOSE BEDSIDE TESTING (test code 140 mg/dL 70-110 H = GLUBED) COMPREHENSIVE METABOLIC [id number] 06:34:00 Test Item Value Reference Range Interpretation [...] TOTAL (test code = ALKP) CBC W/AUTO [id number] 06:25:00 Test Item Value Reference Range Interpretation [...] DIFF/SCN CRITERIA = MDIFF) - CT ABDOMEN W/[id number] 03:09:00 [facility] 1960 Sex: M Name: FAITH VANCE [facility] : 1960 Age/S: 60 / M [address] Unit #: [id number] Loc: [place] [address] Phys: Fede Carrera DO Acct: [id number] Dis Date: Status: ADM IN PHONE #: [phone] Exam Date: 10/31/20201919 FAX #: Reason: NAUSEA, VOMITING, DIARRHEA EXAMS: CPT: [id number] CT ABDOMEN W/CONTRAST 31993 EXAM: - CT ABDOMEN W/CONTRAST LOCATION: H61 [...] VANCE : 1960 Age/S: 60 / M [address] Unit #: [id number] Loc: [place] [address] Phys: Doramargareth Fede mcclellan DO Acct: [id number] Dis Date: Status: ADM IN PHONE #: [phone] Exam Date: 10/31/20201919 FAX #: Reason: NAUSEA, VOMITING, DIARRHEA EXAMS: CPT: [id number] CT ABDOMEN W/CONTRAST 72186 <Continued> small bowel wall thickening. The appendix [...] bilateral pleural effusions. at 0309 Reported and signedby: Carmen Encarnacion M.D. CC: Nika Martin MD; Fede Carrera DO Technologist:RT Rohan(R) CTDI: DLP: Trnscb Date/Time: 11/01/2020 (308) t.SDR.TH15 Orig Print D/T: S: 11/01/2020 (311) PAGE 2 Signed ReportGLUCOSE BEDSIDE [id number] 21:34:00 Test Item Value Reference Range Interpretation Comments GLUCOSE BEDSIDE TESTING (test code 161 mg/dL 70-110 H = GLUBED) GLUCOSE BEDSIDE [id number] 17:32:00 Test Item Value Reference Range Interpretation Comments GLUCOSE BEDSIDE TESTING (test code 136 mg/dL 70-110 H = GLUBED) - XR ABDOMEN 1 [id number] 12:44:00 [facility] 1960 Sex: M Name: FAITH VANCE [facility] : 1960 Age/S: 60 / M [address] Unit #: [id number] Loc: [place] [address] Phys: Fede Carrera DO Acct: [id number] Dis Date: Status: ADM IN PHONE #:[phone] Exam Date: 10/31/2020 1227 FAX #: Reason: Abdominal pain in the lower qudarants EXAMS: CPT: [id number] XR ABDOMEN 1 V 46728 Fluoro Time: DAP (Gy m2): Air Kerma [...] Signed Report Name: FAITH VANCE [facility] : 1960 Age/S: 60 / M [address] Unit #: [id number] Loc: [place] [address] Phys: Fede Carrera DO Acct: [id number] Dis Date: Status: ADM IN PHONE #: [phone] Exam Date: 10/31/2020 1227 FAX #: Reason: Abdominal pain in the lower qudarants EXAMS: CPT: [id number] XR ABDOMEN 1 V 42269 Fluoro Time: DAP (Gy m2): Air Kerma (mGy): &lt ;Continued> Technologist: Cecelia Arias RT(R) Trnscb Date/Time: 10/31/2020 (1658) CdayV OrigPrint D/T: S: 10/31/2020 (1785) PAGE 2 Signed Report GLUCOSE BEDSIDE [id number] 11:58:00 Test Item Value Reference Range Interpretation Comments GLUCOSE BEDSIDE TESTING (test code 105 mg/dL 70-110 N = GLUBED) GLUCOSE BEDSIDE [id number] 08:01:00 Test Item Value Reference Range Interpretation Comments GLUCOSE BEDSIDE TESTING (test code 106 mg/dL 70-110 N = GLUBED) [id number] 22:46:00 Test Item Value Reference Range Interpretation [...] yby method. Completed by Nursing: NOGLUCOSE BEDSIDE [id number] 21:55:00 Test Item Value Reference Range Interpretation Comments GLUCOSE BEDSIDE TESTING (test code 119 mg/dL 70-110 H = GLUBED) [id number] 19:33:00 Test Item Value Reference Range Interpretation [...] method. Completed by Nursing: NOCoronavirus 2019 nCoV [id number] 18:46:00 Test Item Value Reference Range Interpretation Comments Coronavirus 2019 nCoV Negative Negative Per ma nufacturer, Bedside (test code = negativ e results should [id number]) be treated aspresumptive a nd, if inconsistent [...] with COVID-19. Spec Comments: NNT PRO-BRAIN NATRIURETIC [id number] 15:51:00 Test Item Value Reference Range Interpretation Comments NT PRO-BRAIN NATRIURETIC PEPTI 6079 PG/ML 0-100 H (test code = PROBNP) Completed by Nursing: [id number] 15:51:00 Test Item Value Reference Range Interpretation [...] yby method. Completed by Nursing: NOBASIC METABOLIC [id number] 15:51:00 Test Item Value Reference Range Interpretation [...] Completed by Nursing: NO- XR CHEST 1 [id number] 15:42:00 [facility] 1960 Sex: M Name: FAITH VANCE [facility] : 1960 Age/S: 60 / M [address] Unit #: [id number] Loc: [place] [address] Phys: Todd Jacobo MD Acct: [id number] Dis Date: Status: PRE ER PHONE #: [phone] Exam Date: 10/30/2020 1524 FAX #: Reason: chest pain EXAMS: CPT: [id number] XR CHEST 1 V 7 1045 Fluoro [...] Ruiz M.D. CC: Nika Martin MD; Todd Weber PAGE 1 Signed Report Name: FAITH VANCE [facility] : 1960 Age/S: 60 / M [address] Unit #: [id number] Loc: [place] [address] Phys: Todd Jacobo MD Acct: [id number] Dis Date: Status: PRE ER PHONE #: [phone] Exam Date: 10/30/2020 1524 FAX #: Reason: chest pain EXAMS: CPT: [id number] XR CHEST 1 V 12668 Fluoro Time: DAP (Gy m2): Air Kerma (mGy): <Continued> Technologist: Kim Andrwes RT(R)(CT) Trnscb Date/Time: 10/30/2020 (1542) t.KATHRYNR.RB24 Orig Print D/T: S: 10/30/2020 (4842) PAGE 2 Signed ReportCBC W/O [id number] 15:31:00 Test Item Value Reference Range Interpretation [...] 9.70 fL 7.0-9.6 H MPV) BASIC METABOLIC [id number] 21:42:00 Test Item Value Reference Range Interpretation [...] 9.6 mg/dL 8.0-10.5 N CA) HEPATIC FUNCTION [id number] 21:42:00 Test Item Value Reference Range Interpretation [...] 114 IUnit/L 20-125 N code = ALKP) [id number] 21:42:00 Test Item Value Reference Range Interpretation Comments LIPASE (test code = LIP) 70 U/L 13-57 H [id number] 21:42:00 Test Item Value Reference Range Interpretation [...] by method. UA RFLX MICR CULT IF [id number] 21:37:00 Test Item Value Reference Range Interpretation [...] INDWELLING CATH (CEDENO)Cath Status: Under 72 hoursPROTHROMBIN [id number] 21:35:00 Test Item Value Reference Range Interpretation [...] (to prevent recurrent infar ct). THROMBOPLASTIN TIME [id number] 21:35:00 Test Item Value Reference Range Interpretation Comments THROMBOPLASTIN TIME 41.7 Seconds 25.0-39.5 H Therape utic Range: PARTIAL (test code = 50.4 - 88.3 Seconds PTT) Effective 09/04/2018 CBC W/AUTO [id number] 21:29:00 Test Item Value Reference Range Interpretation [...] = MDIFF) - CT ABD PELVIS W/O [id number] 20:49:00 [facility] : 1960 Sex: M Name: [facility] : 1960 Age/S: 60 / M [address] [place] [address] Unit #: [id number] Loc: [place] [address] Phys: Gisel Eugene TELETYPE INSTALLER Acct: [id number] Dis Date: Status: REG ER PHONE #: [phone] Exam Date: 08/23/20202024 FAX #: [phone] Reason: DIFFUSE ABDOMINAL PAIN EXAMS: CPT CODE: [id number] CT ABD PELVIS W/O CONT 70327 Clinical indication: Diffuse abdominal pain. Contrast - [...] normal. Vascular: The aorta is grossly normal inappearance.. Lymphatics: No enlarged lymph nodes by CT size criteria. Bones/Soft Tissues: Posterior instrumented interbody fusion at L4-L5 levels with laminectomy defects. No obvious fracture or loosening. Small bilateral fat- containing hernias. No ventral hernias. PAGE 1 Signed Report (CONTINUED) Name: FAITH VANCE [facility] Jonn Mejia : 1960 Age/S: 60 / M [address] [place] [address] Unit #: [id number] Loc: [place] [address] Phys: Gisel Eugene Acct: [id number] Dis Date: Status: REG ER PHONE #: [phone] Exam Date: 08/23/20202024 FAX #: [phone] Reason: DIFFUSE ABDOMINAL PAIN EXAMS: CPT CODE: [id number] CT ABD PELVIS W/O CONT 50266 <Continued> Peritoneum/Other: No extraluminal air. No extraluminal [...] RT(R)(CT) CTDI: DLP: Trnscb Date/Time: 08/23/2020 (2048) t.KATHRYNR.VB9 Orig Print D/T: S: 08/23/2020 (2051) PAGE 2 Signed [id number] 16:58:00 Test Item Value Reference Range Interpretation Comments GLUBED (test code = 159 MG/DL 70-110 H Performe d by certified GLUBED) power sweeper operator at [facility] [id number] 11:58:00 Test Item Value Reference Range Interpretation Comments GLUBED (test code = 149 MG/DL 70-110 H Performe d by certified GLUBED) power sweeper operator at [facility] BASIC METABOLIC [id number] 08:00:00 Test Item Value Reference Range Interpretation [...] 9.9 mg/dL 8.0-10.5 N CA) CBC W/AUTO [id number] 07:08:00 Test Item Value Reference Range Interpretation [...] DIFF REQUIRED (test code NO = MDIFF) [id number] 05:21:00 Test Item Value Reference Range Interpretation Comments GLUBED (test code = 150 MG/DL 70-110 H Performe d by certified GLUBED) power sweeper operator at [facility] [id number] 21:13:00 Test Item Value Reference Range Interpretation Comments GLUBED (test code = 129 MG/DL 70-110 H Performe d by certified GLUBED) power sweeper operator at [facility] [id number] 16:48:00 Test Item Value Reference Range Interpretation Comments GLUBED (test code = 116 MG/DL 70-110 H Performe d by certified GLUBED) power sweeper operator at [facility] [id number] 12:18:00 Test Item Value Reference Range Interpretation Comments GLUBED (test code = 136 MG/DL 70-110 H Performe d by certified GLUBED) power sweeper operator at [facility] [id number] 12:18:00 Test Item Value Reference Range Interpretation Comments GLUBED (test code = 151 MG/DL 70-110 H Performe d by certified GLUBED) power sweeper operator at [facility] CBC W/AUTO [id number] 07:32:00 Test Item Value Reference Range Interpretation [...] (test code NO = MDIFF) BASIC METABOLIC [id number] 07:29:00 Test Item Value Reference Range Interpretation [...] code = 9.0 mg/dL 8.0-10.5 N CA) [id number] 05:19:00 Test Item Value Reference Range Interpretation Comments GLUBED (test code = 135 MG/DL 70-110 H Performe d by certified GLUBED) power sweeper operator at [facility] [id number] 20:31:00 Test Item Value Reference Range Interpretation Comments GLUBED (test code = 189 MG/DL 70-110 H Performe d by certified GLUBED) power sweeper operator at [facility] [id number] 17:41:00 Test Item Value Reference Range Interpretation Comments GLUBED (test code = 140 MG/DL 70-110 H Performe d by certified GLUBED) power sweeper operator at [facility] - CTA CHEST FOR [id number] 13:48:00 [facility] : 1960 Sex: M Name: FAITH VANCE [facility] : 1960 Age/S: 60 / M [address] [place] [address] Blvd Unit #: [id number] Loc: [place] [address] Phys: Gina Gonzalez KNIFE OPERATOR Acct: [id number] Dis Date: Status: ADM IN PHONE #: [phone] Exam Date: 08/12/2020911 FAX #: [phone] Reason: CP, elevated D-dimer EXAMS: CPT CODE: [id number] [place] [id number] PROCEDURE: CTA CHEST INDICATION: CP, elevated D-dimer; [...] 1 Signed Report (CONTINUED) Name: FAITH VANCE [facility] White : 1960 Age/S: 60 / M [address] [place] [address] Blvd Unit #: [id number] Loc: [place] [address] Phys: Gina Gonzalez NP Acct: [id number] Dis Date: Status: ADM IN PHONE #: [phone] Exam Date: 08/12/2020911 FAX #: [phone] Reason: CP, elevated D-dimer EXAMS: CPT CODE: [id number] [place] [address] <Continued> contrastenhancement. No acute abnormality demonstrated. MUSCULOSKELETAL: Healed median sternotomy. No acute skeletal abnormality. IMPRESSION: 1. Negative for pulmonary embolic disease within limitations noted.2. Atherosclerosis. 3. Coronary arterial calcifications with prior coronary arterial stents and CABG. 4. Interstitial edema. No consolidation. 5. Small bilateral pleural effusions. SL: [id number] at 1348 Reported and signed by: Christiano Piña M.D. CC: Johnie Montanez MD; Gina Gonzalez KNIFE OPERATOR; Nika Martin MD Tech nologist:Kate Camacho RT(R)(CT) CTDI: DLP: Trnscb Date/Time: 08/12/2020 (1348) t.SDR.KWL Orig Print D/T: S: 08/12/2020 (2276) PAGE 2 Signed ReportGLUBED 2020-08-12 11:38:00 Test Item Value Reference Range Interpretation Comments GLUBED (test code = 146 MG/DL 70-110 H Performe d by certified GLUBED) power sweeper operator at [facility] CBC W/AUTO [id number] 09:17:00 Test Item Value Reference Range Interpretation [...] (test code NO = MDIFF) BASIC METABOLIC [id number] 08:28:00 Test Item Value Reference Range Interpretation [...] code = 8.3 mg/dL 8.0-10.5 N CA) [id number] 08:28:00 Test Item Value Reference Range Interpretation Comments PHOSPHOROUS (test code = PHOS) 3.6 MG/DL 2.5-4.9 N [id number] 08:28:00 Test Item Value Reference Range Interpretation Comments MAGNESIUM (test code = MAG) 1.94 mg/dL 1.80-2.40 N [id number] 07:16:00 Test Item Value Reference Range Interpretation Comments GLUBED (test code = 170 MG/DL 70-110 H Performe d by certified GLUBED) power sweeper operator at [facility] [id number] 07:16:00 Test Item Value Reference Range Interpretation Comments GLUBED (test code = 137 MG/DL 70-110 H Performe d by certified GLUBED) power sweeper operator at [facility] [id number] 17:01:00 Test Item Value Reference Range Interpretation Comments GLUBED (test code = 88 MG/DL 70-110 N Performe d by certified GLUBED) power sweeper operator at [facility] OKO-HHHXQ5865-06-23 16:56:00 Test Item Value Reference Range Interpretation Comments ACT-ISTAT (test code 186 SEC 74-137 H Perform ed by certified = ACTI) [facility] 15:03:00 Test Item Value Reference Range Interpretation Comments ACT-ISTAT (test code 235 SEC 74-137 H Perform ed by certified = ACTI) power sweeper operator at [facility] [id number] 11:33:00 Test Item Value Reference Range Interpretation Comments GLUBED (test code = 97 MG/DL 70-110 N Performe d by certified GLUBED) power sweeper operator at [facility] [id number] 06:54:00 Test Item Value Reference Range Interpretation Comments GLUBED (test code = 136 MG/DL 70-110 H Performe d by certified GLUBED) power sweeper operator at [facility] BASIC METABOLIC [id number] 06:00:00 Test Item Value Reference Range Interpretation [...] COMMENTS: To be done morning of Heart JqlcKGBQCUQZJGZ5007-27-82 06:00:00 Test Item Value Reference Range Interpretation Comments PHOSPHOROUS (test code = PHOS) 4.1 MG/DL 2.5-4.9 N COMMENTS: To be done morning of Heart HkqwDGDLJSIHK2991-37-28 06:00:00 Test Item Value Reference Range Interpretation Comments MAGNESIUM (test code = MAG) 1.74 mg/dL 1.80-2.40 L COMMENTS: To be done morning of Heart CathTHROMBOPLASTIN TIME [id number] 05:55:00 Test Item Value Reference Range Interpretation Comments THROMBOPLASTIN TIME 37.9 Seconds 25.0-39.5 N Therape utic Range: PARTIAL (test code = 50.4 - 88.3 Seconds PTT) Effective 09/04/2018 CBC W/AUTO [id number] 05:44:00 Test Item Value Reference Range Interpretation [...] COMMENTS: To be done morning of Heart [id number] 05:44:00 Test Item Value Reference Range Interpretation Comments GLUBED (test code = 92 MG/DL 70-110 N Performe d by certified GLUBED) power sweeper operator at [facility] HGBA1C%2020-08-10 17:22:00 Test Item Value Reference Range Interpretation Comments HGBA1C% (test code = HGBA1C%) 6.6 %A1C 4.8-6.0 H [id number] 17:17:00 Test Item Value Reference Range Interpretation Comments GLUBED (test code = 118 MG/DL 70-110 H Performe d by certified GLUBED) power sweeper operator at [facility] TSH REFLEX TO [id number] 15:37:00 Test Item Value Reference Range Interpretation Comments TSH REFLEX TO FT4 (test code = 3.19 IU/mL 0.42-5.47 N TSHREFLEX) [id number] 15:37:00 Test Item Value Reference Range Interpretation [...] y by method. COVID 19 Asymptomatic IH [id number] 11:35:00 Test Item Value Reference Range Interpretation [...] y tests. COMMENTS: If not done this ahynzqlihKMJXGMUV-[id number] 11:31:00 Test Item Value Reference Range Interpretation [...] titative results may babak y by method. [id number] 11:28:00 Test Item Value Reference Range Interpretation [...] to interpret this result as normal/abnormal . [id number] 10:48:00 Test Item Value Reference Range Interpretation Comments GLUBED (test code = 158 MG/DL 70-110 H Performe d by certified GLUBED) power sweeper operator at [facility] B-TYPE NATRIURETIC [id number] 08:19:00 Test Item Value Reference Range Interpretation Comments B-TYPE NATRIURETIC PEPTIDE (test 508.0 PG/ML 0-100 H code = BNP) BASIC METABOLIC [id number] 08:11:00 Test Item Value Reference Range Interpretation [...] 9.1 mg/dL 8.0-10.5 N CA) HEPATIC FUNCTION [id number] 08:11:00 Test Item Value Reference Range Interpretation [...] 174 IUnit/L 20-125 H code = ALKP) [id number] 08:11:00 Test Item Value Reference Range Interpretation Comments MAGNESIUM (test code = MAG) 1.80 mg/dL 1.80-2.40 N [id number] 08:11:00 Test Item Value Reference Range Interpretation [...] may babak y by method. BASIC METABOLIC [id number] 08:09:00 Test Item Value Reference Range Interpretation [...] code = CA) mg/dL 8.0-10.5 HEPATIC FUNCTION [id number] 08:09:00 Test Item Value Reference Range Interpretation Comments TOTAL PROTEIN (test code = PROT) g/dL 6.4-8.2 ALBUMIN (test code = ALB) g/dL 3.4-5.0 BILIRUBIN TOTAL (test code = BILT) mg/dL 0.0-1.0 BILIRUBIN DIRECT (test code = BILD) MG/DL 0.0-0.30 SGOT/AST (test code = AST) IUnit/L 15-37 SGPT/ALT (test code = ALT) IUnit/L 30-65 ALKALINE PHOSPHATASE TOTAL (test IUnit/L 20-125 code = ALKP) [id number] 08:09:00 Test Item Value Reference Range Interpretation Comments MAGNESIUM (test code = MAG) mg/dL 1.80-2.40 [id number]-[id number] 08:09:00 Test Item Value Reference Range Interpretation [...] results may babak y by method. PROTHROMBIN [id number] 08:06:00 Test Item Value Reference Range Interpretation [...] (to prevent recurrent infar ct). THROMBOPLASTIN TIME [id number] 08:06:00 Test Item Value Reference Range Interpretation Comments THROMBOPLASTIN TIME 44.5 Seconds 25.0-39.5 H Therape utic Range: PARTIAL (test code = 50.4 - 88.3 Seconds PTT) Effective 09/04/2018 CBC W/AUTO [id number] 07:58:00 Test Item Value Reference Range Interpretation [...] NO = MDIFF) - XR CHEST 1 [id number] 07:57:00 [facility] : 1960 Sex: M FAX: Todd Jacobo MD [phone] [place]: St: [facility] FAX: Martínez Dash NP [phone] Name: FAITH VANCE [facility] Jonn Mejia : 1960 Age/S: 60/M [address] [place] [address] Bl Unit #: [id number] Loc: [place] [address] Phys: Martínez Dash NP Acct: [id number] Dis Date: Status: REG ER PHONE #: [phone] Exam Date: 08/10/2020752 FAX #: [phone] Reason: Chest Pain EXAMS: CPT CODE: [id number] XR CHEST 1 V 61302 Chest single view 08/10/2020 HISTORY: Chest pain. Comparison is made to 05/21/2018 FINDINGS: Pacemaker and midline sternotomy wires are stable. The lungs are hypoinflated. No consolidation or pleural effusion is present. No vascular congestion or interstitial edema is present. Heart size is mildly enlarged. Aorta is unchanged. IMPRESSION: Hypoinflated lungs. No acute cardiopulmonary process. SL: [id number] at 0757 Reportedand signed by: Khai Kruse M.D. CC: Todd Jacobo MD; Martínez Dash NP Technologist: Juliane Montemayor, RT(R) Trnscrd Date/Time/By: 08/10/2020 (0757) : By: [email or web address] [facility] Print D/T: S: 08/10/2020 (08) PAGE 1 Signed Report COMPREHENSIVE METABOLIC [id number] 18:02:00 Test Item Value Reference Range Interpretation [...] 50-136 H TOTAL (test code = ALKP) [id number] 18:02:00 Test Item Value Reference Range Interpretation Comments AMYLASE (test code = SERGIO) 82 Unit/L 25-115 N [id number] 18:02:00 Test Item Value Reference Range Interpretation Comments LIPASE (test code = LIP) 185 Unit/L 114-286 N COMPREHENSIVE METABOLIC [id number] 17:56:00 Test Item Value Reference Range Interpretation [...] TOTAL Unit/L 50-136 (test code = ALKP) [id number] 17:56:00 Test Item Value Reference Range Interpretation Comments AMYLASE (test code = SERGIO) Unit/L 25-115 [id number] 17:56:00 Test Item Value Reference Range Interpretation Comments LIPASE (test code = LIP) 185 Unit/L 114-286 N CBC W/AUTO [id number] 17:46:00 Test Item Value Reference Range Interpretation [...] CRITERIA MDIFF) - CT ABD PELVIS W/O [id number] 17:46:00 Name: FAITH VANCE [facility] : 1960 Age/S: 58 / M [address] Unit #: [id number] Loc: [place] [address] Phys: Nila Chester MD Acct: [id number] Dis Date: Status: REG ER PHONE #: [phone] Exam Date: 01/03/2019 3747 FAX #: Reason: llq EXAMS: CPT: [id number] CT ABD PELVIS W/O CONT 67773 Location of dictation: B2 CT abdomen and [...] [place] : 1960 Age/S: 58 / M [address] Unit #: [id number] Loc: [place] [address] Phys: Nila Chester MD Acct: [id number] Dis Date: Status: REG ER PHONE #: [phone] Exam Date: 01/03/2019 173 FAX #: Reason: llq EXAMS: CPT: [id number] CT ABD PELVIS W/O CONT 10455 <Continued> at 1746 Reported and signed by: Renuka Willett M.D. CC: Nila Chester MD Technologist:Tavon Jurado, RT(R)(CT)(MRI) CTDI: DLP: Trnscb Date/Time: 01/03/2019 (1746) t.KATHRYNR.PXC Orig Print D/T: S: 01/03/2019 (1749) PAGE 2 Signed ReportBedside [id number] 11:47:00 Test Item Value Reference Range Interpretation Comments Bedside Glucose (test code = 61691-2) 155 70-120 H Meter ID: [id number] [facility] Kingwoododium [id number] 08:31:00 Test Item Value Reference Range Interpretation Comments Sodium Level (test code = 2951-2) 139 136-145 [facility] CentralPotassium Lyjwv8805-58-01 08:31:00 Test Item Value Reference Range Interpretation Comments Potassium Level (test code = 2823-3) 4.0 3.5-5.1 [facility] CentralChloride [id number] 08:31:00 Test Item Value Reference Range Interpretation Comments Chloride Level (test code = 2075-0) 106 98-107 [facility] CentralCarbon Dioxide [id number] 08:31:00 Test Item Value Reference Range Interpretation Comments Carbon Dioxide Level (test code = 2027-) [facility] CentralAnion [id number] 08:31:00 Test Item Value Reference Range Interpretation Comments Anion Gap (test code = 36987-1) 12.0 8-16 [facility] CentralBlood Urea Wyagkbjb7875-37-37 08:31:00 Test Item Value Reference Range Interpretation Comments Blood Urea Nitrogen (test code = 12-14 3094-0) [facility] CentralCreatinine2018-06-08 08:31:00 Test Item Value Reference Range Interpretation Comments Creatinine (test code = 2160-0) 0.72 0.72-1.25 [facility] CentralBUN/Creatinine Vblzk8121-28-12 08:31:00 Test Item Value Reference Range Interpretation Comments BUN/Creatinine Ratio (test code = 11-13 3097-3) [facility] CentralEstimat Glomerular Filtration [id number] 08:31:00 Test Item Value Reference Range Interpretation Comments Estimat Glomerular Filtration Rate 60- >60 (test code = 08967-5) Ranges were taken from the National Kidney Disease Education Program and the National Kidney Foundation literature.Reference ranges:60 or greater: Renfjq81- 59 (for 3 consecutive months): Chronic kidneydisease 15 or less: Kidney failure [facility] CentralGlucose Iannd3238-95-06 08:31:00 Test Item Value Reference Range Interpretation Comments Glucose Level (test code = TVT9536) 195 74-118 H [facility] CentralCalcium Owhfh4697-12-02 08:31:00 Test Item Value Reference Range Interpretation Comments Calcium Level (test code = 54318-3) 9.0 8.4-10.2 [facility] CentralWhite Blood Kudtn1729-45-31 08:12:00 Test Item Value Reference Range Interpretation Comments White Blood Count (test code = 6690-2) 6.06 4.8-10.8 [facility] CentralRed Blood [id number] 08:12:00 Test Item Value Reference Range Interpretation Comments Red Blood Count (test code = 789-8) 4.22 4.3-5.7 L [facility] CentralHemoglobin2018-06-08 08:12:00 Test Item Value Reference Range Interpretation Comments Hemoglobin (test code = 69361-6) 12.5 14.0-18.0 L [facility] CentralHematocrit2018-06-08 08:12:00 Test Item Value Reference Range Interpretation Comments Hematocrit (test code = 4544-3) 36.2 38.2-49.6 L [facility] CentralMean Corpuscular Aejeeg3734-07-96 08:12:00 Test Item Value Reference Range Interpretation Comments Mean Corpuscular Volume (test code = 85.8 81-99 787-2) [facility] CentralMean Corpuscular Kwunkcvweu4973-27-37 08:12:00 Test Item Value Reference Range Interpretation Comments Mean Corpuscular Hemoglobin (test code 29.6 28-32 = 785-6) [facility] CentralMean Corpuscular Hemoglobin Shftwgo9205-93-62 08:12:00 Test Item Value Reference Range Interpretation Comments Mean Corpuscular Hemoglobin Concent 34.5 31-35 (test code = 786-4) [facility] CentralRed Cell Distribution Flckw3280-15-98 08:12:00 Test Item Value Reference Range Interpretation Comments Red Cell Distribution Width (test code 14.2 11.7-14.4 = 60022-3) [facility] CentralPlatelet Ebgau0774-41-40 08:12:00 Test Item Value Reference Range Interpretation Comments Platelet Count (test code = 777-3) 263 140-360 [facility] CentralNeutrophils (%) (Auto)2017-10-27 08:12:00 Test Item Value Reference Range Interpretation Comments Neutrophils (%) (Auto) (test code = 51.2 38.7-80.0 75323-1) [facility] CentralLymphocytes (%) (Auto)2017-10-27 08:12:00 Test Item Value Reference Range Interpretation Comments Lymphocytes (%) (Auto) (test code = 33.7 18.0-39.1 736-9) [facility] CentralMonocytes (%) (Auto)2017-10-27 08:12:00 Test Item Value Reference Range Interpretation Comments Monocytes (%) (Auto) (test code = 9.1 4.4-11.3 5905-5) [facility] CentralEosinophils (%) (Auto)2017-10-27 08:12:00 Test Item Value Reference Range Interpretation Comments Eosinophils (%) (Auto) (test code = 4.8 0.0-6.0 713-8) [facility] CentralBasophils (%) (Auto)2017-10-27 08:12:00 Test Item Value Reference Range Interpretation Comments Basophils (%) (Auto) (test code = 0.7 0.0-1.0 706-2) [facility] CentralIM GRANULOCYTES %2017-10-27 08:12:00 Test Item Value Reference Range Interpretation Comments IM GRANULOCYTES % (test code = IM 0.5 0.0-1.0 GRANULOCYTES %) [facility] CentralNeutrophils # (Auto)2017-10-27 08:12:00 Test Item Value Reference Range Interpretation Comments Neutrophils # (Auto) (test code = 3.1 2.1-6.9 751-8) [facility] CentralLymphocytes # (Auto)2017-10-27 08:12:00 Test Item Value Reference Range Interpretation Comments Lymphocytes # (Auto) (test code = 2.0 1.0-3.2 59305-7) [facility] CentralMonocytes # (Auto)2017-10-27 08:12:00 Test Item Value Reference Range Interpretation Comments Monocytes # (Auto) (test code = 742-7) 0.6 0.2-0.8 [facility] CentralEosinophils # (Auto)2017-10-27 08:12:00 Test Item Value Reference Range Interpretation Comments Eosinophils # (Auto) (test code = 0.3 0.0-0.4 711-2) [facility] CentralBasophils # (Auto)2017-10-27 08:12:00 Test Item Value Reference Range Interpretation Comments Basophils # (Auto) (test code = 704-7) 0.0 0.0-0.1 [facility] CentralAbsolute Immature Granulocyte (ptpa2954-08-65 08:12:00 Test Item Value Reference Range Interpretation Comments Absolute Immature Granulocyte (auto 0.03 0-0.1 (test code = Absolute Immature Granulocyte (auto) [facility] CentralTroponin [id number] 15:14:00 Test Item Value Reference Range Interpretation Comments Troponin I (test code = GET6545) 0.054 0-0.300 [facility] CentralCreatine Kinase LY2530-13-99 15:14:00 Test Item Value Reference Range Interpretation Comments Creatine Kinase MB (test code = 3.90 0-5.0 18566-1) [facility] CentralCreatine Uctklc6494-54-50 15:07:00 Test Item Value Reference Range Interpretation Comments Creatine Kinase (test code = 2157-6) 297 30-200 H [facility] CentralHemoglobin A1c Ycdlwdo1976-01-77 08:04:00 Test Item Value Reference Range Interpretation Comments Hemoglobin A1c Percent (test code = 12.6 4.0-7.0 H Hemoglobin A1c Percent) [facility] CentralTriglycerides Zobai9693-65-88 06:57:00 Test Item Value Reference Range Interpretation Comments Triglycerides Level (test code = 200 0-149 H 2571-8) [facility] CentralCholesterol Ytrpv9931-68-85 06:57:00 Test Item Value Reference Range Interpretation Comments Cholesterol Level (test code = 2093-3) 239 0-199 H Less than 200 mg/dL Low Lwnm205 - 239 mg/dL Borderline Pvcn550 mg/dl and greater High RiskMidCoast Medical Center – CentralLDL Rkdmeepybkp1967-22-17 06:57:00 Test Item Value Reference Range Interpretation Comments LDL Cholesterol (test code = 2089-1) 164 60-130 H [facility] CentralHDL Oarcnfijrex8751-80-13 06:57:00 Test Item Value Reference Range Interpretation Comments HDL Cholesterol (test code = 2085-9) 35 40-60 L [facility] CentralCholesterol/HDL Camiq5124-60-02 06:57:00 Test Item Value Reference Range Interpretation Comments Cholesterol/HDL Ratio (test code = 6.8 3.9-4.7 H 9830-1) [facility] CentralUrine Opiates Cdwdya5761-01-61 16:18:00 Test Item Value Reference Range Interpretation Comments Urine Opiates Screen (test code = NEGATIVE NEGATIVE 36085-5) [facility] CentralUrine Barbiturates Fwbifo2508-75-03 16:18:00 Test Item Value Reference Range Interpretation Comments Urine Barbiturates Screen (test code NEGATIVE NEGATIVE = 981180612) [facility] CentralUrine Phencyclidine Xhfdnv0682-42-79 16:18:00 Test Item Value Reference Range Interpretation Comments Urine Phencyclidine Screen (test NEGATIVE NEGATIVE code = 29794-6) [facility] CentralUrine Amphetamines Hhyawb3748-38-84 16:18:00 Test Item Value Reference Range Interpretation Comments Urine Amphetamines Screen (test code NEGATIVE NEGATIVE = 77911-1) [facility] CentralUrine Methamphetamines Orzmmk8068-27-77 16:18:00 Test Item Value Reference Range Interpretation Comments Urine Methamphetamines Screen (test NEGATIVE NEGATIVE code = Urine Methamphetamines Screen) [facility] CentralUrine Benzodiazepines Fxcdgt2899-61-67 16:18:00 Test Item Value Reference Range Interpretation Comments Urine Benzodiazepines Screen (test NEGATIVE NEGATIVE code = 49222-5) [facility] CentralUrine Cocaine Axpirt3889-95-08 16:18:00 Test Item Value Reference Range Interpretation Comments Urine Cocaine Screen (test code = NEGATIVE NEGATIVE 3398-5) [facility] CentralUrine Cannabinoids Aixugy9866-07-02 16:18:00 Test Item Value Reference Range Interpretation Comments Urine Cannabinoids Screen (test code NEGATIVE NEGATIVE = 08745-6) THESE RESULTS ARE FOR MEDICAL TREATMENT ONLYTHIS REPORT CONTAINS UNCONFIRMED SCREENING RESULTS*POSITIVE RESULTS WILL BE CONFIRMED BY REFERENCE LAB UPON REQUEST CUT-OFFDRUG CLASS CONCENTRATION ng/mLAmphetamines 1000Methamphetamines 1000Cocaine 300Opiate 300Phencyclidine 25Cannabinoid 50Barbiturates 300Benzodiazepine 300Methadone 300[facility] AreaU[facility] Methadone Mcokie1369-70-17 16:18:00 Test Item Value Reference Range Interpretation Comments Urine Methadone Screen (test code = NEGATIVE NEGATIVE 39986-8) THESE RESULTS ARE FOR MEDICAL TREATMENT ONLYTHIS REPORT CONTAINS UNCONFIRMED SCREENING RESULTS*POSITIVE RESULTS WILL BE CONFIRMED BY REFERENCE LAB UPON REQUEST CUT-OFFDRUG CLASS CONCENTRATION ng/mLAmphetamines 1000Methamphetamines 1000Cocaine Metabolite 300Opiate 300Phencyclidine 66Qnjhzprsfym61Oagpscezxelo 300Benzodiazepine 300Methadone 300[facility] CentralProthrombin Ggjj6453-47-96 14:13:00 Test Item Value Reference Range Interpretation Comments Prothrombin Time (test code = 5902-2) 13.6 11.9-14.5 [facility] CentralProthromb Time International Owycf8419-60-99 14:13:00 Test Item Value Reference Range Interpretation Comments Prothromb Time International Ratio 1.13 (test code = 6301-6) Oral Anticoagulant Therapy INR Values:1. Low Intensity Therapy 1.5 - 2.02. Moderate Intensity Therapy 2.0 - 3.03. High Intensity Therapy(1) 2.5 - 3.54. High Intensity Therapy(2) 3.0 - 4.05. Panic ValueINR > 5.0[facility] CentralActivated Partial Thromboplast Ixmh7810-18-19 14:13:00 Test Item Value Reference Range Interpretation Comments Activated Partial Thromboplast Time 27.6 23.8-35.5 (test code = 66123-4) [facility] CentralTotal Vccveuuxd3882-34-48 14:10:00 Test Item Value Reference Range Interpretation Comments Total Bilirubin (test code = 1975-2) 0.6 0.2-1.2 [facility] CentralAspartate Amino Transf (AST/SGOT)2017-10-23 14:10:00 Test Item Value Reference Range Interpretation Comments Aspartate Amino Transf (AST/SGOT) (test 36 5-34 H code = Aspartate Amino Transf (AST/SGOT)) [facility] CentralAlanine Aminotransferase (ALT/SGPT)2017-10-23 14:10:00 Test Item Value Reference Range Interpretation Comments Alanine Aminotransferase (ALT/SGPT) 34 0-55 (test code = 1742-6) [facility] CentralTotal Wlaprch9988-37-89 14:10:00 Test Item Value Reference Range Interpretation Comments Total Protein (test code = 2885-2) 7.3 6.5-8.1 [facility] CentralAlbumin2018-06-04 14:10:00 Test Item Value Reference Range Interpretation Comments Albumin (test code = 1751-7) 4.0 3.5-5.0 [facility] CentralGlobulin2018-06-04 14:10:00 Test Item Value Reference Range Interpretation Comments Globulin (test code = 54995-7) 3.3 2.3-3.5 [facility] CentralAlbumin/Globulin Yeqlx6986-52-49 14:10:00 Test Item Value Reference Range Interpretation Comments Albumin/Globulin Ratio (test code = 1.2 0.8-2.0 1759-0) [facility] CentralAlkaline Otmtytgyrau7128-43-22 14:10:00 Test Item Value Reference Range Interpretation Comments Alkaline Phosphatase (test code = 109 40-150 6768-6) [facility] Natriuretic Uiyfcpy5936-50-91 14:10:00 Test Item Value Reference Range Interpretation Comments B-Type Natriuretic Peptide (test code = 92.8 0-100 09280-2) [facility] CentralAmylase Qatsj3878-76-81 14:10:00 Test Item Value Reference Range Interpretation Comments Amylase Level (test code = 1798-8) 126 25-125 H [facility] CentralLipase2018-06-04 14:10:00 Test Item Value Reference Range Interpretation Comments Lipase (test code = 3040-3) 98 8-78 H [facility] CentralD-Dimer Quantitative (PE/DVT)2017-10-23 14:02:00 Test Item Value Reference Range Interpretation Comments D-Dimer Quantitative (PE/DVT) (test 0.49 0.00-0.45 H code = 05248-9) [facility] CentralDirect Fjukkrbds5173-38-58 13:47:00 Test Item Value Reference Range Interpretation Comments Direct Bilirubin (test code = 06117-5) 0.2 0.0-5.0 [facility] CentralMagnesium Wrqlm3181-18-69 06:52:00 Test Item Value Reference Range Interpretation Comments Magnesium Level (test code = 12355-3) 1.5 1.3-2.1 [facility] Central[facility] RJH6432-07-09 05:09:00 Test Item Value Reference Range Interpretation Comments Urine WBC (test code = 5821-4) NONE 0-5 [facility] KTW8806-05-68 05:09:00 Test Item Value Reference Range Interpretation Comments Urine RBC (test code = 61591-8) NONE 0-5 [facility] Jgypialx1286-56-97 05:09:00 Test Item Value Reference Range Interpretation Comments Urine Bacteria (test code = 08818-5) NONE NONE [facility] Epithelial Finfy4381-76-60 05:09:00 Test Item Value Reference Range Interpretation Comments Urine Epithelial Cells (test code = NONE NONE 90962-7) [facility] Suykp1372-83-22 04:46:00 Test Item Value Reference Range Interpretation Comments Urine Color (test code = 5778-6) YELLOW YELLOW [facility] Central[facility] Vxmwkva0680-11-44 04:46:00 Test Item Value Reference Range Interpretation Comments Urine Clarity (test code = 93556-8) CLEAR CLEAR [facility] Central[facility] Specific Eovdusw9085-43-56 04:46:00 Test Item Value Reference Range Interpretation Comments Urine Specific [place] (test code = 1.010 1.010-1.025 5811-5) [facility] sS5482-70-59 04:46:00 Test Item Value Reference Range Interpretation Comments Urine pH (test code = 95059-3) 8 5-7 H [facility] Leukocyte Dskrkuxh1668-08-18 04:46:00 Test Item Value Reference Range Interpretation Comments Urine Leukocyte Esterase (test code NEGATIVE NEGATIVE = 5799-2) [facility] Titlukw0131-99-75 04:46:00 Test Item Value Reference Range Interpretation Comments Urine Nitrite (test code = 90366-8) NEGATIVE NEGATIVE [facility] Central[facility] Zfywury3719-73-14 04:46:00 Test Item Value Reference Range Interpretation Comments Urine Protein (test code = 5804-0) NEGATIVE NEGATIVE [facility] Glucose (UA)2017-03-05 04:46:00 Test Item Value Reference Range Interpretation Comments Urine Glucose (UA) (test code = NEGATIVE NEGATIVE 2349-9) [facility] Zsfkavf2461-73-12 04:46:00 Test Item Value Reference Range Interpretation Comments Urine Ketones (test code = 68261-9) NEGATIVE NEGATIVE [facility] Hgiycyhdrtvd3746-84-90 04:46:00 Test Item Value Reference Range Interpretation Comments Urine Urobilinogen (test code = 0.2 0.2-1 60453-2) [facility] Central[facility] Pizzhqopi1911-44-84 04:46:00 Test Item Value Reference Range Interpretation Comments Urine Bilirubin (test code = 1978-6) NEGATIVE NEGATIVE [facility] Central[facility] Howdg2469-38-87 04:46:00 Test Item Value Reference Range Interpretation Comments Urine Blood (test code = 61507-5) 2+ NEGATIVE H [facility]CT[facility] B[facility]IN [facility] [address] [address] PatientName: FAITH VANCE MR #: [id number] : 1960 Age/Sex: 57/M Req #: [id number] Adm Physician: ALEXIS COX MD Ordered by: ALEXIS COX MD Report #: [id number] Location: [facility] Room/Bed: [place] [address] Procedure: [id number] CT/CTA BRAIN Exam Date: 10/24/17 Exam Time: [...] Dictated By: ANA MARIA ARTEAGA MD 1633 COPY TO: ALEXIS COX MDCT BRAIN [place] [address] PatientName: FAITH VANCE MR #: [id number] : 1960 Age/Sex: 57/M Req #: [id number] Adm Physician: Ordered by: KHAI WAHL MD Report #: [id number] Location: Room/Bed: __ Procedure: [id number] CT/CT BRAIN WO Exam Date: 10/23/17 Exam [...] on 10/23/171642 [facility] [place] [address] PatientName: FAITH VANCE MR #: [id number] : 1960 Age/Sex: 57/M Req #: [id number] Adm Physician: Ordered by: KHAI WAHL MD Report #: [id number] Location: Room/Bed: __ Procedure: [id number] CT/CTA CHEST Exam Date: 10/23/17 Exam Time: [...] reviewed and is below limits set by [facility]).FINDINGS: Lines and Tubes: Pacemaker with [...] 10/23/17 1621 COPY TO: KHAI WAHL V [facility] (PORTABLE) [address] [place], [place] [address] PatientName: FAITH VANCE MR #: [id number] : 1960 Age/Sex: 57/M Req #: [id number] Adm Physician: Ordered by: KHAI WAHL MD Report #: [id number] Location: ER Room/Bed: __ Procedure: [id number] DX/CHEST SINGLE (PORTABLE) Exam Date: 10/23/17 Exam [...] 10/23/17 1443 COPY TO: KHAI WAHL [address] [place] [address] PatientName: FAITH VANCE MR #: [id number] : 1960 Age/Sex: 56/M Req #: [id number] Adm Physician: Ordered by: JACQUELYN MONTES DE OCA MD Report #: [id number] Location: Room/Bed: Procedure: [id number] CT/CT BRAIN WO Exam Date: Exam Time: [...] MONTES DE OCA MDCT CERVICAL SPINE [place] [address] PatientName: FAITH VANCE MR #: [id number] : 1960 Age/Sex: 56/M Req #: [id number] Adm Physician: Ordered by: JACQUELYN MONTES DE OCA MD Report #: [id number] Location: ER Room/Bed: Procedure: [id number] CT/CT CERVICAL SPINE WO Exam Date: Exam [...] 04/04/17206 COPY TO: JACQUELYN MONTES DE OCA [facility] SINGLE (PORTABLE) [place] [address] PatientName: FAITH VANCE MR #: [id number] : 1960 Age/Sex: 56/M Req #: [id number] Adm Physician: Ordered by: JACQUELYN MONTES DE OCA MD Report #: [id number] Location: ER Room/Bed: Procedure: [id number] DX/CHEST SINGLE (PORTABLE) Exam Date: 04/04/17 Exam [...] OCA MDHIP RIGHT 2-3 VW (+/- PELVIS) [place] [address] PatientName: FAITH VANCE MR #: [id number] : 1960 Age/Sex: 56/M Req #: [id number] Adm Physician: Ordered by: JACQUELYN MONTES DE OCA MD Report #: [id number] Location: ER Room/Bed: Procedure: DX/HIP RIGHT 2-3 [...] DE OCA MDSP LUMBAR, COMPLETE MIN 4VW [place] [address] PatientName: FAITH VANCE MR #: [id number] : 1960 Age/Sex: 56/M Req #: [id number] Adm Physician: Ordered by: JACQUELYN MONTES DE OCA MD Report #: [id number] Location: ER Room/Bed: Procedure: DX/SP LUMBAR, COMPLETE [...] JACQUELYN MONTES DE OCA MDUS ABDOMEN COMPLETE [place] [address] PatientName: FAITH VANCE MR #: [id number] : 1960 Age/Sex: 56/M Req #: [id number] [facility] Physician: NICHELLE PALACIOS MD Ordered by: SCOTT AMIN MD Report #: [id number] Location: [facility] Room/Bed: [place] [address] Procedure: [id number] US/US ABDOMEN COMPLETE Exam Date: 03/08/17 Exam Time: 912 REPORT STATUS: Signed PROCEDURE: ABDOMINAL ULTRASOUND COMPARISON: None. INDICATIONS: Elevated LFTs FINDINGS: Liver: 15.2 cm. Increased hepatic parenchymal echogenicity. No focal mass. Main portal vein: 1.1 cm. Hepatopedal flow. Gallbladder: Cholecystectomy. Common Bile Duct: 5.0 mm. No echogenicfilling defect. Sonographic Hoang's sign: Negative. Right kidney: 12.8 cm. No solid or cystic mass,echogenic calculi, or hydronephrosis. Normal parenchymal echogenicity. Focal [...] body habitus. Inferior vena cava: Normal. Aorta: Normal.Ascites: None. CONCLUSION: 1. No acute sonographic abnormality. 2. Hepatic steatosis. 3. Right renalsimple cyst. Dictated by: Brooke Samspon M.D. on 03/08/2017 at 10:40 Electronically approved by: Maria Eugenia Jones on 03/08/2017 at 10:40 Dictated By: BROOKE SAMPSON MD 1040 Transcribed By: ANIBAL on 03/08/17 1040 COPY TO: SCOTT AMIN [facility] S[facility] (PORTABLE) [place] [address] PatientName: FAITH VANCE MR #: [id number] : 1960 Age/Sex: 56/M Req #: [id number] Adm Physician: Ordered by: JACQUELYN MONTES DE OCA MD Report #: [id number] Location: ER Room/Bed: Procedure: [id number] DX/CHEST SINGLE (PORTABLE) Exam Date: 03/05/17 Exam [...]
--- NOTE | 2022-07-16 13:28 | RAD REPORT ---
EXAM DESCRIPTION: CT - Thorax Wo Con - 07/16/2022 1:19 pm CLINICAL HISTORY: CHEST PAIN COMPARISON: Chest Abd Pelvis Wo Con dated 07/11/2022; Chest For Pe Angio dated 06/03/2022; Chest For P e Angio dated 01/17/2022; Chest For Pe Angio dated 12/21/2021 FINDINGS: Chest Wall: No suspicious thyroid nodules or pathologic lymphadenopathy. Lungs: No acute abnormality. Atelectasis as result of the effusions. Pleura: Moderate bilateral pleural effusions are unchanged. Mediastinum/robb: No pathologic lymphadenopathy. Pulmonary arteries/Aorta: Limited evaluation without contrast. No aortic aneurysm. Heart: No significant pericardial effusion. Mild cardiomegaly. Pacemaker. Coronary artery calcificati ons and/or stents. Sternotomy. Upper abdomen: No acute abnormality. Cholecystectomy. Bones: No acute abnormality. Bridging osteophytes in the thoracic spine system with diffuse idiopathi c skeletal hyperostosis. All CT scans are performed using dose optimization technique as appropriate and may include automated exposure control or mA/KV adjustment according to patient size. IMPRESSION: Moderate bilateral pleural effusions and likely underlying atelectasis. Findings are sim ilar to 07/11/2022.
[2022-07-16 13:37] LABS: Absolute Lymphocytes (CBC) 0.9 K/uL (0.7-4.9); Hematocrit 34.5 % (39.6-49.0); Lymphocytes % 13.6 % (15.3-44.8); MCV 83.5 fL (80-100); MPV 7.1 fL (7.6-11.3); RBC Red Blood Cell Count 4.14 M/uL (4.33-5.43)
[2022-07-16] MEDS ORDERED: ASPIRIN 81 MG CHEWABLE TABLET ONE (13:39)
[2022-07-16] MEDS ORDERED: METOPROLOL TAR 50 MG TAB ONE (13:39)
[2022-07-16] MEDS ORDERED: MORPHINE 4 MG/ML SYR ONE ×2 (13:40→15:27)
[2022-07-16] MEDS ORDERED: FAMOTIDINE 20 MG/2 ML VIAL IV ONE (13:40)
[2022-07-16] MEDS ORDERED: ENOXAPARIN 60 MG/0.6 ML SQ ONE (13:40)
[2022-07-16] MEDS ORDERED: NA CHLORIDE 0.9% 1,000 ML ONE (13:40)
[2022-07-16] MEDS ORDERED: ONDANSETRON 4 MG/2 ML VIAL ONE (13:40)
[2022-07-16 13:43] LABS: Protime INR 1.4
--- NOTE | 2022-07-16 13:47 | RAD REPORT ---
EXAM DESCRIPTION: RAD - Chest Single View - 07/16/2022 1:30 pm CLINICAL HISTORY: CHEST PAIN COMPARISON: Chest Single View dated 07/14/2022; Chest Single View dated 07/11/2022; Chest Single View dated 07/08/2022; Chest Single View dated 07/05/2022; Thorax Wo Con dated 07/16/2022 FINDINGS: Lines: Pacemaker. Lungs: Prominence of the pulmonary interstitium. Pleural: Similar small left pleural effusion. Possible small right effusion. Cardiac: Similar cardiomegaly. Mediastinum: Within normal limits. Bones: No acute fractures. Sternotomy. Other: None IMPRESSION: Pleural effusions and likely underlying atelectasis. The right pleural effusion is robbie r seen on the same-day CT.
[2022-07-16 13:58] LABS: Albumin 2.6 g/dL (3.4-5.0); Bilirubin Direct 0.4 mg/dL (0-0.2); Bilirubin Total 0.8 mg/dL (0.2-1.0); Magnesium 2.1 mg/dL (1.6-2.4); Potassium 4.1 mmol/L (3.5-5.1); Protein, Total 6.6 g/dL (6.4-8.2); Troponin High Sensitivity 28.5 pg/mL (<58.9)
[2022-07-16 14:17] LABS: SARS-CoV-2 Antigen Rapid Res Negative (Negative)
--- NOTE | 2022-07-16 14:46 | ER ---
Nurse's Notes [facility] Name: Ernie Rooney Age: 62 yrs Sex: Male : 1960 Arrival Date: 07/16/2022 Time: 12:38 Bed 7 Private MD: Diagnosis: Chest pain, unspecified;Essential (primary) hypertension;Pleural condition, unspecified-BILATERAL, MODERATE;Cardiomegaly Presentation: 07/16 12:48 Chief complaint: EMS states: Chest pain that radiates to left arm and SOB x 1 hour. hb Coronavirus screen: At this time, the client does not indicate any symptoms associated with coronavirus-19. Ebola Screen: No symptoms or risks identified at this time. Initial Sepsis Screen: Does the patient meet any 2 criteria? No. Patient's initial sepsis screen is negative. Does the patient have a suspected source of infection? No. Patient's initial sepsis screen is negative. Risk Assessment: Do you want to hurt yourself or someone else? Patient reports no desire to harm self or others. Onset of symptoms was July 16, 2022. 12:48 Method Of Arrival: EMS: [facility] 12:48 Acuity: TONE 3 hb Historical: - Allergies: 12:49 Nitroglycerin; hb - PMHx: 12:49 Arthritis; Back pain; CAD; CHF; CVA; Depression; Fibromyalgia; GERD; Hyperlipidemia; hb Hypertensive disorder; Hypothyroidism; IDDM; Left sided weakness from previous CVA; Myocardial infarction; Pacemaker; - PSHx: 12:49 bilat BKA's; bypass; CABG; hb - Immunization history:: Adult Immunizations up to date. - Social history:: Smoking status: Patient denies any tobacco usage or history of. - Family history:: not pertinent. Screenin:18 [facility] ED Fall Risk Assessment (Adult) History of falling in the last 3 months, ph including since admission No falls in past 3 months (0 pts) Confusion or Disorientation No (0 pts) Intoxicated or Sedated No (0 pts) Impaired Gait Yes (1 pt) Mobility Assist Device Used Yes (1 pt) Altered Elimination No (0 pt) Score/Fall Risk Level 0 - 2 = Low Risk Oriented to surroundings, Maintained a safe environment, Hourly rounding (assess needs \T\ fall precautionary measures) done. Abuse screen: Denies threats or abuse. Denies injuries from another. Nutritional screening: No deficits noted. Tuberculosis screening: No symptoms or risk factors identified. Assessment: 13:35 General: Appears in no apparent distress. Behavior is cooperative, appropriate for age, ph Denies fever, feeling ill. Pain: Complains of pain in anterior aspect of right upper chest, anterior aspect of left upper chest and mid-sternal area Pain radiates to back Pain began 2 hours ago. Neuro: Level of Consciousness is awake, alert, obeys commands, Oriented to person, place, time, situation. Cardiovascular: Reports chest pain, nausea, shortness of breath, Chest pain is located in substernal area radiates back. Respiratory: Airway is patent Respiratory effort is even, unlabored, Respiratory pattern is regular, symmetrical. GI: Reports nausea, Patient currently denies abdominal pain. Derm: Skin is pink, warm \T\ dry. Musculoskeletal: Amputation of bilateral legs. Vital Signs: 12:48 BP 132 / 72; Pulse 89; Resp 16; Temp 97.7; Pulse Ox 98% on R/A; Weight 66.68 kg; Height hb 5 ft. 7 in. (170.18 cm); Pain 9/10; 14:20 BP 132 / 78; Pulse 90; Resp 18; Pulse Ox 98% on R/A; ph 15:36 BP 137 / 88; Pulse 91; Resp 18; Temp 97.9; Pulse Ox 98% on R/A; ph 12:48 Body Mass Index 23.02 (66.68 kg, 170.18 cm) hb Vitals: 14:20 Cardiac Rhythm Assessment Paced. ph ED Course: 12:38 Patient arrived in ED. eb 12:49 Triage completed. hb 12:49 Arm band placed on. hb 12:54 Mustapha Cole MD is Attending Physician. caitlyn 13:22 CT Chest Wo Con In Process Unspecified. EDMS 13:30 Freda Perez, RN is Primary Nurse. ph 13:34 XRAY Chest (1 view) In Process Unspecified. EDMS 14:19 Patient has correct armband on for positive identification. Placed in gown. Bed in low ph position. Call light in reach. Side rails up X 1. Client placed on continuous cardiac and pulse oximetry monitoring. NIBP monitoring applied. Door closed. Noise minimized. Warm blanket given. Pillow given. 14:19 Maintain EMS IV. Dressing intact. Good blood return noted. Site clean \T\ dry. Gauge \T\ ph site: 20 LFA. IV with fluids infusing freely, with good blood return. Patient maintains SpO2 saturation greater than 95% on room air. 14:41 Alf Rios is Hospitalizing Provider. caitlyn 15:37 No provider procedures requiring assistance completed. Patient admitted, IV remains in ph place. Administered Medications: 13:45 Drug: NS 0.9% 1000 ml Route: IV; Rate: 75 ml/hr; Site: left forearm; ph 16:00 Follow up: Response: No adverse reaction; IV Status: Infusion continued upon admission ph 13:45 Drug: Zofran (Ondansetron) 4 mg Route: IVP; Site: left forearm; ph 14:00 Follow up: Response: No adverse reaction ph 13:45 Drug: Lopressor (metoprolol TARTRATE) 50 mg Route: PO; ph 15:00 Follow up: Response: No adverse reaction ph 13:47 Drug: morphine 4 mg Route: IVP; Infused Over: 4 mins; Site: left forearm; ph 14:10 Follow up: Response: No adverse reaction; Pain is decreased ph 13:50 Drug: Pepcid (famotidine) 20 mg Route: IVP; Site: left forearm; ph 14:00 Follow up: Response: No adverse reaction ph 14:16 Not Given (given by EMS): Aspirin Chewable Tablet 324 mg PO once; 81 mg tablets x 4 ph 15:36 Drug: Lovenox (enoxaparin) 60 mg Route: Sub-Q; Site: right lower abdomen; ph 16:00 Follow up: Response: No adverse reaction ph 15:36 Drug: morphine 4 mg Route: IVP; Infused Over: 4 mins; Site: left forearm; ph 16:00 Follow up: Response: No adverse reaction; Pain is decreased; RASS: Drowsy (-1) ph Medication: 14:19 VIS not applicable for this client. ph Outcome: 14:45 Decision to Hospitalize by Provider. caitlyn 16:47 Admitted to Tele accompanied by tech, via stretcher, with chart. ph 16:47 Condition: stable 16:47 Instructed on the need for admit. 16:47 Patient left the ED. ph Signatures: Dispatcher [employer] Mustapha Arredondo MD MD cha Hall, Patricia, RN RN Chintan, Desiree, RN RN Cristine Banerjee
--- NOTE | 2022-07-16 14:46 | EDPHYS ---
Physician Documentation [facility] Name: Ernie Rooney Age: 62 yrs Sex: Male : 1960 Arrival Date: 07/16/2022 Time: 12:38 Bed 7 Private MD: ED Physician Mustapha Cole HPI: 07/16 14:36 This 62 yrs old Male presents to ER via EMS with complaints of Chest Pain. caitlyn 14:36 The patient or guardian reports chest pain that is located primarily in the substernal caitlyn area. Onset: 1 day(s) ago. The pain does not radiate. Associated signs and symptoms: Pertinent positives: dizziness, shortness of breath. The chest pain is described as a heaviness, a pressure. Duration: The patient or guardian reports multiple episodes, with no pattern. Modifying factors: The symptoms are alleviated by nothing. the symptoms are aggravated by nothing. Severity of pain: At its worst the pain was mild moderate in the emergency department the pain is unchanged. The patient has experienced similar episodes in the past, multiple times. Historical: - Allergies: 12:49 Nitroglycerin; hb - PMHx: 12:49 Arthritis; Back pain; CAD; CHF; CVA; Depression; Fibromyalgia; GERD; Hyperlipidemia; hb Hypertensive disorder; Hypothyroidism; IDDM; Left sided weakness from previous CVA; Myocardial infarction; Pacemaker; - PSHx: 12:49 bilat BKA's; bypass; CABG; hb - Immunization history:: Adult Immunizations up to date. - Social history:: Smoking status: Patient denies any tobacco usage or history of. - Family history:: not pertinent. ROS: 14:36 Constitutional: Negative for fever, chills, and weight loss, Eyes: Negative for injury, caitlyn pain, redness, and discharge, ENT: Negative for injury, pain, and discharge, Neck: Negative for injury, pain, and swelling, Abdomen/GI: Negative for abdominal pain, nausea, vomiting, diarrhea, and constipation, Back: Negative for injury and pain, : Negative for injury, bleeding, discharge, and swelling, MS/Extremity: Negative for injury and deformity, Skin: Negative for injury, rash, and discoloration, Neuro: Negative for headache, weakness, numbness, tingling, and seizure, Psych: Negative for depression, anxiety, suicide ideation, homicidal ideation, and hallucinations, Allergy/Immunology: Negative for hives, rash, and allergies, Endocrine: Negative for neck swelling, polydipsia, polyuria, polyphagia, and marked weight changes, Hematologic/Lymphatic: Negative for swollen nodes, abnormal bleeding, and unusual bruising. 14:36 Cardiovascular: Positive for chest pain. 14:36 Respiratory: Positive for shortness of breath. Exam: 14:36 Constitutional: This is a well developed, well nourished patient who is awake, alert, caitlyn and in no acute distress. Head/Face: Normocephalic, atraumatic. Eyes: Pupils equal round and reactive to light, extra-ocular motions intact. Lids and lashes normal. Conjunctiva and sclera are non-icteric and not injected. Cornea within normal limits. Periorbital areas with no swelling, redness, or edema. ENT: Nares patent. No nasal discharge, no septal abnormalities noted. Tympanic membranes are normal and external auditory canals are clear. Oropharynx with no redness, swelling, or masses, exudates, or evidence of obstruction, uvula midline. Mucous membranes moist. Neck: Trachea midline, no thyromegaly or masses palpated, and no cervical lymphadenopathy. Supple, full range of motion without nuchal rigidity, or vertebral point tenderness. No Meningismus. Chest/axilla: Normal chest wall appearance and motion. Nontender with no deformity. No lesions are appreciated. Cardiovascular: Regular rate and rhythm with a normal S1 and S2. No gallops, murmurs, or rubs. Normal PMI, no JVD. No pulse deficits. Respiratory: Lungs have equal breath sounds bilaterally, clear to auscultation and percussion. No rales, rhonchi or wheezes noted. No increased work of breathing, no retractions or nasal flaring. Abdomen/GI: Soft, non-tender, with normal bowel sounds. No distension or tympany. No guarding or rebound. No evidence of tenderness throughout. Back: No spinal tenderness. No costovertebral tenderness. Full range of motion. Male : Normal genitalia with no discharge or lesions. Skin: Warm, dry with normal turgor. Normal color with no rashes, no lesions, and no evidence of cellulitis. MS/ Extremity: Pulses equal, no cyanosis. Neurovascular intact. Full, normal range of motion. Neuro: Awake and alert, GCS 15, oriented to person, place, time, and situation. Cranial nerves II-XII grossly intact. Motor strength 5/5 in all extremities. Sensory grossly intact. Cerebellar exam normal. Normal gait. Psych: Awake, alert, with orientation to person, place and time. Behavior, mood, and affect are within normal limits. 14:36 ECG was reviewed by the Attending Physician. Vital Signs: 12:48 BP 132 / 72; Pulse 89; Resp 16; Temp 97.7; Pulse Ox 98% on R/A; Weight 66.68 kg; Height hb 5 ft. 7 in. (170.18 cm); Pain 9/10; 14:20 BP 132 / 78; Pulse 90; Resp 18; Pulse Ox 98% on R/A; ph 15:36 BP 137 / 88; Pulse 91; Resp 18; Temp 97.9; Pulse Ox 98% on R/A; ph 12:48 Body Mass Index 23.02 (66.68 kg, 170.18 cm) hb MDM: 12:54 Patient medically screened. caitlyn 14:39 Differential diagnosis: abnormal EKG, acute pericarditis, anxiety, coronary artery caitlyn disease chest wall pain, congestive heart failure gastritis, hiatal hernia, pancreatitis, pneumonia, stable angina, unstable angina. HEART Score: History: Moderately Suspicious (1), ECG: Non specific repolarization disturbance / LBTB / PM (1), Age: > 45 and < 65 years (1), Risk Factors: > or = 3 Risk factors for atherosclerotic disease (2), [Hypercholesterolemia] [Hypertension] [DM] [+ Family HX] [Obesity] Troponin: < or = 1 x Normal Limit (0). The patient was given aspirin in the Emergency Department. TARA Risk Score: 1 - Three or more CAD risk factors, 1- Known CAD. Data reviewed: vital signs, nurses notes, lab test result(s), EKG, radiologic studies, plain films. Consideration of Admission/Observation Patient was admitted/placed on observation. Escalation of care including admission/observation considered. I considered the following discharge prescriptions or medication management in the emergency department Medications were administered in the Emergency Department. See MAR. Test considered but Not performed: Ultrasound NO ECHOCARDIO. Care significantly affected by the following chronic conditions: Hypertension, Congestive Heart Failure. Care significantly affected by the following Social Determinants of Health: Poor access to healthcare and/or lack of insurance, Poor access to transportation, Problems related to primary support group. 07/16 12:56 Order name: Basic Metabolic Panel; Complete Time: 14:14 [facility] 07/16 12:56 Order name: CBC with Diff; Complete Time: 14:14 [facility] 07/16 12:56 Order name: LFT's; Complete Time: 14:14 [facility] 07/16 12:56 Order name: Magnesium; Complete Time: 14:14 [facility] 07/16 12:56 Order name: NT PRO-BNP; Complete Time: 14:14 [facility] 07/16 12:56 Order name: PT-INR; Complete Time: 14:14 [facility] 07/16 12:56 Order name: Troponin HS; Complete Time: 14:14 [facility] 07/16 12:56 Order name: XRAY Chest (1 view); Complete Time: 14:14 [facility] 07/16 12:56 Order name: CT Chest Wo Con; Complete Time: 14:14 [facility] 07/16 12:56 Order name: UDS [facility] 07/16 13:51 Order name: SARS-COV-2 Antigen Rapid [facility] 07/16 15:31 Order name: Urine Dipstick-Ancillary [facility] 07/16 12:56 Order name: EKG; Complete Time: 12:57 [facility] 07/16 12:56 Order name: Cardiac monitoring; Complete Time: 13:31 [facility] 07/16 12:56 Order name: EKG - Nurse/Tech; Complete Time: 13:31 [facility] 07/16 12:56 Order name: IV Saline Lock; Complete Time: 13:31 [facility] 07/16 12:56 Order name: Labs collected and sent; Complete Time: 13:31 [facility] 07/16 12:56 Order name: O2 Per Protocol; Complete Time: 13:31 [facility] 07/16 12:56 Order name: O2 Sat Monitoring; Complete Time: 13:31 [facility] 07/16 12:56 Order name: Urine Dipstick-Ancillary (obtain specimen); Complete Time: 16:47 [facility] EC:36 Rate is 95 beats/min. QRS [place] is Normal. SC interval is normal. QRS interval is caitlyn normal. QT interval is normal. No Q waves. T waves are Normal. No ST changes noted. Clinical impression: Abnormal EKG without significant change and No evidence of ischemia. Interpreted by me. Reviewed by me. Administered Medications: 13:45 Drug: NS 0.9% 1000 ml Route: IV; Rate: 75 ml/hr; Site: left forearm; ph 16:00 Follow up: Response: No adverse reaction; IV Status: Infusion continued upon admission ph 13:45 Drug: Zofran (Ondansetron) 4 mg Route: IVP; Site: left forearm; ph 14:00 Follow up: Response: No adverse reaction ph 13:45 Drug: Lopressor (metoprolol TARTRATE) 50 mg Route: PO; ph 15:00 Follow up: Response: No adverse reaction ph 13:47 Drug: morphine 4 mg Route: IVP; Infused Over: 4 mins; Site: left forearm; ph 14:10 Follow up: Response: No adverse reaction; Pain is decreased ph 13:50 Drug: Pepcid (famotidine) 20 mg Route: IVP; Site: left forearm; ph 14:00 Follow up: Response: No adverse reaction ph 14:16 Not Given (given by EMS): Aspirin Chewable Tablet 324 mg PO once; 81 mg tablets x 4 ph 15:36 Drug: Lovenox (enoxaparin) 60 mg Route: Sub-Q; Site: right lower abdomen; ph 16:00 Follow up: Response: No adverse reaction ph 15:36 Drug: morphine 4 mg Route: IVP; Infused Over: 4 mins; Site: left forearm; ph 16:00 Follow up: Response: No adverse reaction; Pain is decreased; RASS: Drowsy (-1) ph Disposition Summary: 07/16/22 14:45 Hospitalization Ordered Hospitalization Status: Observation caitlyn Provider: Alf Rios cha Location: Telemetry/MedSurg (observation) caitlyn Condition: Fair caitlyn Problem: new caitlyn Symptoms: have improved caitlyn Bed/Room Type: Standard caitlyn Room Assignment: 212(07/16/22 15:18) dw Diagnosis - Chest pain, unspecified caitlyn - Essential (primary) hypertension caitlyn - Pleural condition, unspecified - BILATERAL, MODERATE caitlyn - Cardiomegaly caitlyn Forms: - Medication Reconciliation Form caitlyn - SBAR form caitlyn Signatures: Dispatcher [employer] Rhonda Rousseau RN RN dw Anderson, Corey, MD MD cha Hall, Patricia, RN RN Desiree Woodson RN RN Corrections: (The following items were deleted from the chart) 13:51 12:57 SARS-COV-2 RT PCR+[id number] ordered. EDMS EDMS 15:18 14:45 caitlyn dw
--- NOTE | 2022-07-16 14:49 | P.HP ---
Certification for Inpatient Patient admitted to: Observation With expected LOS: <2 Midnights Patient will require the following post-hospital care: None Practitioner: I am a practitioner with admitting privileges, knowledge of patient current condition, hospital course, and medical plan of care. Services: Services provided to patient in accordance with Admission requirements found in Title 42 Section 412.3 of the Code of Federal Regulations Patient History Date of Service: 07/16/22 Primary Care Provider: Dee Dee Reason for admission: Chest pain/CHF exacerbation History of Present Illness: Patient is a 62-year-old male with history of CAD s/p CABG with pacemaker/defibrillator, afib on eliquis, hypertension, hyperlipidemia, IDDM, hypothyroidism, and systolic CHF who presented to the ED via EMS with complaints of chest pain. He has had several cardiac works ups, found to have an EF of 30- 35 % and has life vest. Patient symptoms started 4 hours ago. Patient was watching TV while laying in bed when his chest pain started. Patient reports 9 out of 10 sharp pain radiating to his back. He reports associated symptoms of shortness of breath, dizziness, nausea, and headache. His symptoms are alleviated by nothing and are aggravated by nothing. Patient does not take his medications because he states that he cannot afford them. EKG without acute changes, V-paced. Troponin WNL. BNP is elevated at [address] chest showing moderate bilateral pleural effusions and likely underlying atelectasis. Findings are similar to 07/11/2022. Patient will be admitted for observation under the care of Dr. Rios. Cardiology will be consulted for further recommendations. Allergies hydrocodone [From [place]] Adverse Reaction (Verified 06/03/22 23:56) hallucination Home Medications: ALPRAZolam [Xanax] 0.5 mg PO BID PRN #20 tab 06/19/22 Apixaban [Eliquis] 5 mg PO BID #60 tab 06/19/22 Aspirin Chewable [Aspirin Chewable*] 81 mg PO DAILY #30 tab.chew 06/19/22 Atorvastatin Calcium [Lipitor] 40 mg PO BEDTIME #30 tab 06/19/22 Cyclobenzaprine [Flexeril*] 10 mg PO BID PRN #30 tab 06/19/22 Dicyclomine [Bentyl*] 10 mg PO QID #60 cap 01/29/23 Docusate Sodium 100 mg PO DAILY #30 cap 06/19/22 Furosemide 40 mg PO BID #60 tab 06/19/22 Gabapentin 800 mg PO BID #60 tab 06/19/22 Hydrocodone 10/APAP 325 [[place] 10/325] 1 tab PO Q6H PRN #30 tab 06/19/22 Levothyroxine [Synthroid*] 50 mcg PO [id number] #30 tab 06/19/22 Metformin HCl 500 mg PO DAILY #30 tab 06/19/22 Metoprolol Succinate 0.5 tab PO DAILY 30 Days #30 tab 06/19/22 Omeprazole 20 mg PO DAILY #30 cap 06/19/22 Spironolactone 25 mg PO DAILY #30 tab 06/19/22 Tamsulosin [Flomax*] 0.4 mg PO DAILY #30 cap 06/19/22 Venlafaxine HCl 75 mg PO BID #60 tab 06/19/22 lisinopriL [Lisinopril] 2.5 mg PO DAILY #30 tab 06/19/22 - Past Medical/Surgical History Diabetic: Yes -: CAD/LA -: GERD -: Hypertension -: Anxiety/depression -: DM insulin dependent -: Hypothyroidism -: enlarged prostate -: cataract in the left eye -: fibromyalgia -: hyperlipidemia -: neuropathy -: Systolic CHF -: pacemaker placement May 2017 -: triple bypass 2002 4 stents -: back surgeries x 6 -: arthroscopic surgeries bilateral knees -: left forearm rodding -: Cholecystectomy -: Appendectomy -: tonsillectomy Psychosocial/ Personal History: Patient lives at home. He does not work. - Family History Mother -: Heart disease, Hypertension grandparents -: Diabetes, Stroke - Social History Smoking Status: Never smoker Alcohol use: No CD- Drugs: No Caffeine use: No Place of Residence: Home Review of Systems 10-point ROS is otherwise unremarkable Respiratory: Shortness of Breath, SOB with Excertion Cardiovascular: Chest Pain, Light Headedness Gastrointestinal: Nausea Neurological: Weakness Physical Examination - Vital Signs Temperature: 97.7 F Blood Pressure: 134/88 Pulse: 97 Respirations: 30 Pulse Ox (%): 100 - Physical Exam General: Alert, Oriented x3, Acute distress HEENT: Atraumatic, Normocephalic, PERRLA Neck: Supple, 2+ carotid pulse no bruit Respiratory: Clear to auscultation bilaterally, Normal air movement Cardiovascular: No edema, Normal pulses, Other (v paced) Capillary refill: <2 Seconds Gastrointestinal: Normal bowel sounds Musculoskeletal: Other (BKA) Integumentary: No rashes Neurological: Normal speech, Normal tone Lymphatics: No axilla or inguinal lymphadenopathy - Studies Laboratory Data (last 24 hrs) 07/16/22 13:30: PT 15.4 H, INR 1.40 07/16/22 13:30: WBC 6.50, Hgb 11.3 L, Hct 34.5 L, Plt Count 327 07/16/22 13:30: Sodium 140, Potassium 4.1, BUN 29 H, Creatinine 0.96, Glucose 149 H, Magnesium 2.1, Total Bilirubin 0.8, AST 24, ALT 19, Alkaline Phosphatase 200 H Assessment and Plan - Plan Assessment Chest pain CAD Systolic CHF Diabetes type 2 insulin-dependent with hyperglycemia Hyperlipidemia Hypertension Hypothyroidism Medication noncompliance Plan Observantion for ACS rule out/CHF excerbation. Initial troponin negative. Will trend, monitor on telemetry, cardiology consult in place. Continue home medications of Lisinopril, Spironolactone, Atorvastatin, Metoprolol, Lasix, and Eliquis. Aspirin daily. Morphine PRN pain. ACHS Accu-Chek, moderate sliding scale insulin. Diabetic diet Chest CT showing moderate bilateral pleural effusions and likely underlying atelectasis. Findings are similar to 07/11/2022. BNP 5118. EF 30-35 % Monitor and replete electrolytes per protocol DVT PPX- Eliquis Full code. Discharge Plan: Home Plan to discharge in: 48 Hours - Advance Directives Does patient have a Living Will: No Does patient have a Durable POA for Healthcare: No - Code Status/Comfort Care Code Status Assessed: Yes (Full code) Critical Care: No Time Spent Managing Pts Care (In Minutes): 50
[2022-07-16] MEDS ORDERED: ONDANSETRON 4 MG/2 ML VIAL IV PRN (15:26)
[2022-07-16] MEDS ORDERED: ACETAMINOPHEN 500 MG TAB PO PRN (15:26)
[2022-07-16 15:31] LABS: Urine Blood 2+ (Negative); Urine Glucose Negative (Negative); Urine Protein 3+ (Negative)
[2022-07-16 15:51] LABS: Barbiturates NEGATIVE (NEGATIVE); Benzodiazepines NEGATIVE (NEGATIVE); Cocaine NEGATIVE (NEGATIVE); METHAMPHETAM NEGATIVE (NEGATIVE); Methadone NEGATIVE (NEGATIVE); Opiates POSITIVE (NEGATIVE); Phencyclidine NEGATIVE (NEGATIVE); THC Cannibis NEGATIVE (NEGATIVE)
[2022-07-16] MEDS: INSULIN -REGULAR HUMAN 50 UNIT/0.5 ML ML SQ SCH ×2 (16:30→20:57)
[2022-07-16] MEDS: FUROSEMIDE 40 MG/4 ML VIAL IV SCH (17:09)
[2022-07-16] MEDS: HYDROCODONE/APAP 10/325 TAB PO PRN (17:09)
[2022-07-16 17:44] LABS: Thyroid Stimulating Hormone 5.11 uIU/mL (0.358-3.740)
[2022-07-16 17:45] VITALS: BMI 23.0
[2022-07-16] MEDS: ALBUTEROL 2.5 MG/3 ML NEB SOL NEB SCH (20:50)
[2022-07-16] MEDS: MORPHINE 2 MG/ML SYR IV PRN (20:55)
[2022-07-16] MEDS: APIXABAN 5 MG TABLET PO SCH (20:56)
[2022-07-16] MEDS ORDERED: ATORVASTATIN 40 MG TAB PO SCH (21:00)
[2022-07-16 21:15] LABS: Specific Gravity 1.008 (1.005-1.030); Urine Bacteria <20 /HPF (<20); Urine Bilirubin NEGATIVE (Negative); Urine Blood 1+ (Negative); Urine Clarity Clear (Clear); Urine Color Light-Yellow (Yellow); Urine Glucose NEGATIVE (Negative); Urine Mucus Slight /HPF (None Seen); Urine Protein 1+ (Negative); Urine Urobilinogen Normal (Normal)
[2022-07-17] MEDS: ALBUTEROL 2.5 MG/3 ML NEB SOL NEB SCH ×4 (02:30→20:00)
[2022-07-17] MEDS: MORPHINE 2 MG/ML SYR IV PRN ×5 (02:41→21:31)
[2022-07-17 04:00] LABS: Absolute Lymphocytes (CBC) 1.5 K/uL (0.7-4.9); Lymphocytes % 25.1 % (15.3-44.8); MCV 83.9 fL (80-100); MPV 7.6 fL (7.6-11.3); RBC Red Blood Cell Count 4.05 M/uL (4.33-5.43)
[2022-07-17 04:11] LABS: Phosphorus 4.6 mg/dL (2.5-4.9); Potassium 4.1 mmol/L (3.5-5.1)
[2022-07-17] MEDS: LEVOTHYROXINE SOD 0.05 MG TABLET PO SCH (05:52)
[2022-07-17] MEDS: INSULIN -REGULAR HUMAN 50 UNIT/0.5 ML ML SQ SCH ×4 (07:30→21:00)
[2022-07-17] MEDS: HYDROCODONE/APAP 10/325 TAB PO PRN (08:35)
[2022-07-17] MEDS: FUROSEMIDE 40 MG/4 ML VIAL IV SCH ×2 (08:36→17:12)
[2022-07-17] MEDS: TAMSULOSIN 0.4 MG SR CAP PO SCH (08:36)
[2022-07-17] MEDS: PANTOPRAZOLE 40MG TABLET PO SCH (08:36)
[2022-07-17] MEDS: ASPIRIN 81 MG CHEWABLE TABLET PO SCH (08:36)
[2022-07-17] MEDS: APIXABAN 5 MG TABLET PO SCH ×2 (08:36→21:31)
[2022-07-17] MEDS ORDERED: CYCLOBENZAPRINE 10 MG TAB PO PRN (10:08)
[2022-07-17] MEDS ORDERED: HYDROCODONE/APAP 10/325 TAB PO PRN (10:08)
[2022-07-17] MEDS: GABAPENTIN 400 MG CAP PO SCH ×2 (11:23→21:30)
--- NOTE | 2022-07-17 15:14 | P.PN ---
Subjective Date of Service: 07/17/22 Primary Care Provider: Dee Dee Chief Complaint: Chest pain/CHF exacerbation Patient is complaining of sharp chest pain. No issues overnight. Physical Examination - Vital Signs Temperature: 97.0 F Blood Pressure: 104/67 Pulse: 71 Respirations: 18 Pulse Ox (%): 100 Assessment And Plan - Plan Physical Exam General: Alert, Oriented x3, Acute distress Neck: Supple, no elevated JVD Respiratory: Clear to auscultation bilaterally, Normal air movement Cardiovascular: No edema, Normal pulses, Other (v paced) Gastrointestinal: Normal bowel sounds, nontender Musculoskeletal: BKA Integumentary: No rashes Neurological: Normal speech, Normal tone Diagnosis Chest pain CAD Chronic systolic CHF Diabetes type 2 insulin-dependent with hyperglycemia Hyperlipidemia Hypertension Hypothyroidism Medication noncompliance Plan: Patient with persistent atypical chest pain. 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 He is on gabapentin which is resumed. Canvas as needed. Continue IV Lasix Continue other home medications for heart failure and CAD. Continue Eliquis. Insulin sliding scale for glucose management.
[2022-07-17] MEDS ORDERED: ATORVASTATIN 40 MG TAB PO SCH (21:00)
[2022-07-18] MEDS: MORPHINE 2 MG/ML SYR IV PRN ×2 (02:37→07:18)
[2022-07-18] MEDS: ALBUTEROL 2.5 MG/3 ML NEB SOL NEB SCH ×3 (02:40→14:00)
[2022-07-18 03:50] LABS: Absolute Lymphocytes (CBC) 1.3 K/uL (0.7-4.9); Hematocrit 33.1 % (39.6-49.0); Lymphocytes % 21.2 % (15.3-44.8); MCV 83.4 fL (80-100); MPV 7.7 fL (7.6-11.3); RBC Red Blood Cell Count 3.97 M/uL (4.33-5.43)
[2022-07-18 04:02] LABS: Potassium 4.2 mmol/L (3.5-5.1)
[2022-07-18] MEDS: LEVOTHYROXINE SOD 0.05 MG TABLET PO SCH (06:13)
[2022-07-18] MEDS: INSULIN -REGULAR HUMAN 50 UNIT/0.5 ML ML SQ SCH ×3 (07:30→16:30)
--- NOTE | 2022-07-18 09:05 | P.DS ---
Admission Date: 07/16/22 Discharge Date: 07/18/22 Primary Care Provider: Dee Dee Reason for Admission: Chest pain/CHF exacerbation - Problems (1) Post-thoracotomy pain syndrome Current Visit: Yes Status: Acute (2) Acute on chronic systolic heart failure Current Visit: No Status: Acute (3) Atypical chest pain Current Visit: No Status: Acute (4) Bilateral pleural effusion Current Visit: No Status: Acute (5) CAD (coronary artery disease) Current Visit: No Status: Chronic Qualifiers: (6) Diabetes mellitus Current Visit: No Status: Chronic Qualifiers: Diabetes mellitus type: type 2 Diabetes mellitus ad terminal makeup operator insulin use: with ad terminal makeup operator use Diabetes mellitus complication status: with hyperglycemia Qualified Code(s): E11.65 - Type 2 diabetes mellitus with hyperglycemia; Z79.4 - residential (current) use of insulin (7) History of pacemaker Onset Date: 11/08/17 Current Visit: No Status: Chronic (8) Noncompliance with medication regimen Current Visit: No Status: Chronic Brief History of Present Illness: Patient is a 62-year-old male with history of CAD s/p CABG with pacemaker/defibrillator, afib on eliquis, hypertension, hyperlipidemia, IDDM, hypothyroidism, and systolic CHF who presented to the ED via EMS with complaints of chest pain. He has had several cardiac works ups, found to have an EF of 30- 35 % and has life vest. Patient symptoms started 4 hours ago. Patient was watching TV while laying in bed when his chest pain started. Patient reports 9 out of 10 sharp pain radiating to his back. He reported associated symptoms of shortness of breath, dizziness, nausea, and headache. His symptoms are alleviated by nothing and are aggravated by nothing. Patient does not take his medications because he states that he cannot afford them. EKG without acute changes, V-paced. Troponin WNL. BNP is elevated at [address] chest showing moderate bilateral pleural effusions and likely underlying atelectasis. Findings are similar to 07/11/2022. Patient admitted for further management. Hospital Course: Patient admitted to the medical floor. Troponin trended negative. He was treated with Lasix for CHF exacerbation and pleural effusion. Patient complained of sharp chest pain worse with breathing and movement. Chest pain is reproducible by palpation, intermittent and chronic. ACS ruled out. Patient's chest pain is likely related to postthoracotomy syndrome. He is on gabapentin [place] at home which were resumed during the hospital stay. He denied any shortness of breath, he has pleural effusion which is chronic. There is a report patient has been noncompliant with his medications. ACS will be ruled out patient is discharged with refill of his medications and informed to follow-up with cardiology Dr. Keenan as an outpatient. Case discussed with Dr. Keenan. Vital Signs/Physical Exam: Temp Pulse Resp BP Pulse Ox 96.9 F 76 18 114/65 96 07/18/22 08:00 07/18/22 08:00 07/18/22 08:00 07/18/22 08:00 07/18/22 08:00 General: Alert, In no apparent distress, Oriented x3 HEENT: Mucous membr. moist/pink Neck: JVD not distended Respiratory: Clear to auscultation bilaterally, Normal air movement Cardiovascular: No edema, Regular rate/rhythm, Normal S1 S2 Gastrointestinal: Soft and benign, Non-distended, No tenderness Musculoskeletal: No swelling Integumentary: No rashes, No cyanosis Neurological: Normal strength at 5/5 x4 extr Laboratory Data at Discharge: WBC 6.20 K/uL (4.3-10.9) 07/18/22 02:52 Hgb 10.8 g/dL (13.6-17.9) L 07/18/22 02:52 Hct 33.1 % (39.6-49.0) L 07/18/22 02:52 Plt Count 332 K/uL (152-406) 07/18/22 02:52 PT 15.4 SECONDS (9.5-12.5) H 07/16/22 13:30 INR 1.40 07/16/22 13:30 Sodium 137 mmol/L (136-145) 07/18/22 02:52 Potassium 4.2 mmol/L (3.5-5.1) 07/18/22 02:52 BUN 33 mg/dL (7-18) H 07/18/22 02:52 Creatinine 1.00 mg/dL (0.70-1.30) 07/18/22 02:52 Glucose 120 mg/dL (74-106) H 07/18/22 02:52 Phosphorus 4.6 mg/dL (2.5-4.9) 07/17/22 03:28 Magnesium 2.0 mg/dL (1.6-2.4) 07/17/22 03:28 Total Bilirubin 0.8 mg/dL (0.2-1.0) 07/16/22 13:30 AST 24 U/L (15-37) 07/16/22 13:30 ALT 19 U/L (16-61) 07/16/22 13:30 Alkaline Phosphatase 200 U/L (45-117) H 07/16/22 13:30 Home Medications: ALPRAZolam [Xanax*] 0.5 mg PO BID PRN #20 tab 06/19/22 Dicyclomine [Bentyl*] 10 mg PO QID #60 cap 06/19/22 Apixaban [Eliquis] 5 mg PO BID #60 tab 07/18/22 Aspirin Chewable [Aspirin Chewable*] 81 mg PO DAILY #30 tab.chew 07/18/22 Atorvastatin Calcium [Lipitor] 40 mg PO BEDTIME #30 tab 07/18/22 Cyclobenzaprine [Flexeril*] 10 mg PO BID PRN #30 tab 07/18/22 Docusate Sodium 100 mg PO DAILY #30 cap 07/18/22 Furosemide 40 mg PO BID #60 tab 07/18/22 Gabapentin 800 mg PO BID #60 tab 07/18/22 Hydrocodone 10/APAP 325 [[place] 10/325*] 1 tab PO Q6H PRN #12 tab 07/18/22 Levothyroxine [Synthroid*] 50 mcg PO [id number] #30 tab 07/18/22 Metformin HCl 500 mg PO DAILY #30 tab 07/18/22 Metoprolol Succinate 0.5 tab PO DAILY 30 Days #30 tab 07/18/22 Omeprazole 20 mg PO DAILY #30 cap 07/18/22 Spironolactone 25 mg PO DAILY #30 tab 07/18/22 Tamsulosin [Flomax*] 0.4 mg PO DAILY #30 cap 07/18/22 Venlafaxine HCl 75 mg PO BID #60 tab 07/18/22 lisinopriL [Lisinopril] 2.5 mg PO DAILY #30 tab 07/18/22 New Medications: Aspirin Chewable [Aspirin Chewable*] 81 mg PO DAILY #30 tab.chew Docusate Sodium 100 mg PO DAILY #30 cap Apixaban [Eliquis] 5 mg PO BID #60 tab Cyclobenzaprine [Flexeril*] 10 mg PO BID PRN #30 tab PRN Reason: Muscle Spasms Tamsulosin [Flomax*] 0.4 mg PO DAILY #30 cap Furosemide 40 mg PO BID #60 tab Gabapentin 800 mg PO BID #60 tab Atorvastatin Calcium [Lipitor] 40 mg PO BEDTIME #30 tab lisinopriL [Lisinopril] 2.5 mg PO DAILY #30 tab Metformin HCl 500 mg PO DAILY #30 tab Metoprolol Succinate 0.5 tab PO DAILY 30 Days #30 tab Hydrocodone 10/APAP 325 [[place] 10/325*] 1 tab PO Q6H PRN #12 tab PRN Reason: Pain Omeprazole 20 mg PO DAILY #30 cap Spironolactone 25 mg PO DAILY #30 tab Levothyroxine [Synthroid*] 50 mcg PO [id number] #30 tab Venlafaxine HCl 75 mg PO BID #60 tab Diet: AHA Activity: Ad nafisa Followup: NONE,NONE [Primary Care Provider] - 1-2 Weeks Time spent managing pt's care (in minutes): 33
[2022-07-18] MEDS: PANTOPRAZOLE 40MG TABLET PO SCH (09:44)
[2022-07-18] MEDS: ASPIRIN 81 MG CHEWABLE TABLET PO SCH (09:44)
[2022-07-18] MEDS: TAMSULOSIN 0.4 MG SR CAP PO SCH (09:44)
[2022-07-18] MEDS: APIXABAN 5 MG TABLET PO SCH (09:44)
[2022-07-18] MEDS: FUROSEMIDE 40 MG/4 ML VIAL IV SCH (09:44)
[2022-07-18] MEDS: GABAPENTIN 400 MG CAP PO SCH (09:44)
[2022-07-18 13:09] VITALS: O2SAT 98
[2022-07-18 16:41] VITALS: BP 110/60; TEMP 97.6
--- NOTE | 2022-07-18 18:44 | EKG ---
Test Date: 2022-07-16 Test Time: 13:34:12 Wheat Inspector: ABHISHEK MEASUREMENT RESULTS: Intervals: Rate: 95 PA: 152 QRSD: 176 QT: 420 QTc: 527 [place]: P: -16 PA: 152 QRS: -55 T: 152 INTERPRETIVE STATEMENTS: Electronic ventricular pacemaker Compared to ECG 07/14/2022 18:25:40 No significant changes Electronically Signed On 07-18-22 18:41:21 FLOW TRADER by Kavin Keenan
--- NOTE | 2022-07-19 01:44 | CON ---
Date of Consultation: 07/18/2022 Reason For Consultation: Chest pain. History Of Present Illness: 62-year-old, history of coronary artery disease, status post CABG, has p acemaker and defibrillator, history of atrial fibrillation, hypertension, dyslipidemia, diabetes, and systolic heart failure, presented with chest pain. Pain is left side, while watching TV, was sharp in nature. No radiation. Not related to exertion. Has been chest pain free since hospitalization. Cardiac enzymes are negative. Past Medical History: As outlined above in the HPI. Medications: Refer to reconciliation sheet for detailed list. Allergies: HYDROCODONE. Family History: No premature coronary artery disease or cancer. Social History: He does not smoke or drink. Does not use any drugs. Review of Systems: All systems were reviewed, they were negative except as mentioned in the HPI. Physical Examination: Vital Signs: Reviewed. Head and Neck: Pupils are equal, reactive to light. Intact eye movements. No JVD. No cervical lym phadenopathy. Neck is supple. Thyroid is not enlarged. Lungs: Clear to auscultation bilaterally. No rhonchi, wheezing, or crackles. No accessory muscle u se. Heart: Regular rate and rhythm. No extra sounds. Abdomen: Soft, nontender. Bowel sounds positive. No organomegaly. No masses or hernia. No rigidi ty or rebound. Extremities: No edema, clubbing, or cyanosis. Intact pulses. Skin: No rash. Neurological: Alert, awake, and oriented x3. No acute focal deficits appreciated. Lymph Nodes: No cervical or axillary lymphadenopathy. Investigations: Labs were reviewed. Cardiac enzymes x3 are negative. Assessment And Recommendations: 1.Chest pain. No known history of coronary artery disease, but pain is atypical. Cardiac enzymes a re negative and patient is pain free at the present time. He can be released on medical management i ncluding aspirin, beta-ulises, and to follow up as an outpatient for a stress test and an echo. 2.Chronic systolic heart failure. Stable and euvolemic. Continue current regimen of therapy. Thank you for the consult. /VAMSHI Voice ID: [id number] Report ID: [id number]
== END 2022-07-18 16:39 | disposition home or self-care (01) | DRG 291 ==
LOC: ER 12:35 → ERHOLD 15:01 → 2ND 15:57
PROVIDERS: ADMIT Internal Medicine; ATTEND Internal Medicine
DX: I11.0 Hypertensive heart disease with heart failure (principal); I50.23 Acute on chronic systolic (congestive) heart failure; I69.354 Hemiplegia and hemiparesis following cerebral infarction affecting left non-dominant side; G89.12 Acute post-thoracotomy pain; K21.9 Gastro-esophageal reflux disease without esophagitis; E78.5 Hyperlipidemia, unspecified; M79.7 Fibromyalgia; E11.65 Type 2 diabetes mellitus with hyperglycemia; I48.91 Unspecified atrial fibrillation; E03.9 Hypothyroidism, unspecified; I25.2 Old myocardial infarction; I25.10 Atherosclerotic heart disease of native coronary artery without angina pectoris; Z88.8 Allergy status to other drugs, medicaments and biological substances; Z95.1 Presence of aortocoronary bypass graft; Z90.49 Acquired absence of other specified parts of digestive tract; Z79.01 Long term (current) use of anticoagulants; Z79.84 Long term (current) use of oral hypoglycemic drugs; Z91.14 Patient's other noncompliance with medication regimen; Z79.82 Long term (current) use of aspirin; Z89.512 Acquired absence of left leg below knee; Z89.511 Acquired absence of right leg below knee; Z95.810 Presence of automatic (implantable) cardiac defibrillator; Z79.899 Other long term (current) drug therapy; Z79.890 Hormone replacement therapy; Z20.822 Contact with and (suspected) exposure to COVID-19
CPT/HCPCS: 36415; 71045; 71250; 80048; 80076; 80307; 81001; 81003; 82947; 83735; 83880; 84100; 84439; 84443; 84484; 85025; 85610; 87811; 93005; 94640; 96361; 96372; 96374; 96375; 99285; J1650; J1940; J2270; J2405; J7030; J7613

== ENCOUNTER 2022-07-19 15:13 | Emergency (ER) | payer OTHER ==
--- OUTSIDE RECORDS SUMMARY | 2022-07-19 15:24 | XMS REPORT | Continuity of Care Document ---
:1960 Author Organization [facility] t Address [address] [place] [address] Care Team Providers Name Role Phone MONIKA HALL MD Primary Care Physician [id number] Attending Clinician Unavailable Harshal Zhu Attending Clinician Unavailable Finn Shah Attending Clinician Unavailable Doctor Unassigned, Pioneer Attending Clinician Unavailable Josselyn Harding RN Attending [...] Attending Clinician Alis Garcia MD Attending Clinician [phone] Kaylyn Calvin MD Attending Clinician Tha Gunter [...] Unavailable Casper RAE, Michael Gaxiola Attending Clinician [phone] Nova RAE, Cortney Law Attending Clinician [phone] Emy SCRUGGS, Rhonda Attending Clinician Malia HALL, Dennis Arreola Attending Clinician Carlos Allen MD Attending Clinician ALEXIS COX Attending Clinician Unavailable JACQUELYN MONTES DE OCA Attending Clinician Unavailable NICHELLE PALACIOS Attending Clinician Unavailable [id number] Admitting Clinician Unavailable Nika Martin Admitting Clinician [...] Admitting Clinician Unavailable Michael Hernandez Admitting Clinician [phone] Dennis Finley MDmed Mohamed Admitting Clinician ALEXIS COX Admitting Clinician Unavailable NICHELLE PALACIOS Admitting Clinician Unavailable Payers Payer Name Policy Type Policy Number Effective Date Expiration Date Sujit daugherty HLSM HLSM [id number] [employer] [id number] 2018spring 00:00:00 [employer]Wav[employer] [id number] [facility] Patient [...] Added automatic ally from request for surgery [id number] Troponin I Troponin I Disease Active 2020-0 [...] [place] [facility] Pacemaker Pacemaker Disease Active 2019- Uni vers malfunctio malfunctio 2-04 it y of n n 00:00: [place] 00 Medical Branch Cellulitis Cellulitis Disease Active 2019- U nivers 1-19 ity of 00:00: [place] 00 Medical Branch Arterioven Arterioven Disease Active [...] 00:00: [place] involving involving 00 Medi uriel [place] 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 Type 2 Type 2 Disease Active 2019- Univers diabetes diabetes 8-29 ity of mellitus mellitus 00:00: [place] without without 00 Medical complicati complicati Br anch on, on, without without long-term long-term current current use of use of insulin insulin Essential Essential Disease Active Uni vers hypertensi hypertensi 8-29 it y of on on 00:00: [place] [address] Medical Branch Other Other Disease Active Univers hyperlipid hyperlipid 8-29 it y of emia emia 00:00: [place] [facility] Stroke Stroke Disease Active Univers 5-12 ity of 00:00: [place] [address] Medical Branch Left-sided Left-sided Disease Active U nivers weakness weakness 5-11 ity of 00:00: [place] [facility] Left sided Left sided Disease Active U nivers numbness numbness 5-11 ity of 00:00: [place] 00 Medical Branch S/P admn S/P admn [...] chest pain 2-22 it y of 00:00: [place] [address] Medical Branch Chest pain Chest pain Problem Active [facility] 00 [facility] [place] Coronary CAD Problem Active [facility] artery (coronary [facility] disease artery Patient disease) [facility] [place] Diabetic DKA Problem Active [facility] ketoacidos (diabetic Esme es is ketoacidos Patien t es) Medical [place] Hyperglyce Hyperglyce Problem Active [facility] bambi bambi [facility] Hypertensi Hypertensi Problem Active [facility] on on [facility] Pancreatit Pancreatit Problem Active [facility] is is [facility] Uncontroll Uncontroll Problem Active [facility] diabetes diabetes Patien t mellitus mellitus [facility] Allergies, Adverse Reactions, Alerts Allergy Allergy Status Severity Reaction(s) Onset Inactive Treating Comm ents Source Name Type Date Date Clinician No Known DA Active U [facility] 3-22 [place] 00:[facility]: d 00 [facility] No Known DA Active U [facility] Allergie 3- [place] 00:00: d 00 [facility] No Known DA Active U 2017-05 [facility] Allergie 2-31 [place] s 00:00: [place] 00 [facility] No Known DA Active U 2017-05 [facility] Allergie 2-31 Clear s 00:00: [place] 00 [facility] No Known DA Active U [facility] Allergie 3- [place] 00:00: e 00 [facility] NO KNOWN Drug Active Univers ALLERGIE [...] University o f Transport Non-Med 00:00:00 00:00:00 [facility] edical Branch Exposure to 2022-01-30 2022-02-09 Not sure University of SARS-CoV-2 00:00:00 20:09:00 [facility] (event) Branch Tobacco use and 2022-02-09 2022-02-09 Smokeless tobacco Un iversity of exposure 00:00:00 00:00:00 non-user [facility] [place] [facility] Alcohol intake 2022-02-09 2022-02-09 1.71 /d University of 00:00:00 00:00:00 [facility] [place] [facility] Tobacco Comment 2022-02-09 2022-02-09 quit 15 years ago Un iversity of 00:00:00 00:00:00 [facility] [place] [facility] Education 2021-10-27 2021-10-27 9 University of 00:00:00 00:00:00 [facility] [place] [facility] History SDOH 2020-03-16 2020-03-16 3 University o f Financial 00:00:00 00:00:00 [facility] [place] [facility] Alcohol Comment 2019-07-18 2019-07-18 quit drinking Univ anika of 00:00:00 00:00:00 2013 but drank [facility] heavily before Branch this Sex Ass[birth year] At [birth year] LUCY Sanders 00:00:00 00:00:00 [facility] Smoking Status Start Date Stop Date Source Ex-smoker 2022-02-09 00:00:00 2022-02-09 00:00:00 Universi ty of [facility] [place] [facility] Medications Ordered Filled Start Stop Current Ordering Indication Dosage Frequency Signature Comments Components Source Medication Medication Date Date Medication? Clinician (SIG) Name Name aspirin 81 2021- No [id number] 81mg Take 1 Univers mg chewable 9-23 10-24 tablet by it y of tablet 00:00: 04:59 mouth [place] 00 :00 daily with Medical breakfast Branch for 30 days. glipiZIDE 5 2021- No [id number] 5mg Take 1 Univers mg tablet 9-23 10-24 tablet by ity of 00:00: 04:59 mouth in [place] 00 :00 the Medical morning Branch for 30 days. levothyroxi 2021- No [id number] 50ug Take 1 Univers ne 50 mcg 9-23 10-24 tablet by ity of tablet 00:00: 04:59 mouth [place] 00 :00 every Medical morning Branch for 30 days. lisinopriL 2021- No [id number] 2.5mg Take 1 Univers 2.5 mg 9-23 10-24 tablet by ity of tablet 00:00: 04:59 mouth in [place] 00 :00 the Medical morning Branch for 30 days. spironolact 2021- No [id number] 25mg Take 1 Univers one 25 mg 9-23 10-24 tablet by ity of tablet 00:00: 04:59 mouth in [place] 00 :00 the Medical morning Branch for 30 days. tamsulosin 2021- No [id number] .4mg Take 1 Univers 0.4 mg 24 9-23 10-24 capsule by ity of hr capsule 00:00: 04:59 mouth in [facility] 00 :00 the Medical morning Branch for 30 days. aspirin 81 2021- No [id number] 81mg Take 1 Univers mg chewable 9-23 10-24 tablet by it y of tablet 00:00: 04:59 mouth [place] 00 :00 daily with [facility] breakfast Branch for 30 days. glipiZIDE 5 2021- No [id number] 5mg Take 1 Univers mg tablet 9-23 10-24 tablet by ity of 00:00: 04:59 mouth in [place] 00 :00 the [facility] morning [place] for 30 days. levothyroxi 2021- No [id number] 50ug Take 1 Univers ne 50 mcg 9-23 10-24 tablet by ity of tablet 00:00: 04:59 mouth [place] 00 :00 every [facility] morning Branch for 30 days. lisinopriL 2021- No [id number] 2.5mg Take 1 Univers 2.5 mg 9-23 10-24 tablet by ity of tablet 00:00: 04:59 mouth in [place] 00 :00 the [facility] morning [place] for 30 days. spironolact 2021- No [id number] 25mg Take 1 Univers one 25 mg 9-23 10-24 tablet by ity of tablet 00:00: 04:59 mouth in [place] 00 :00 the [facility] morning [place] for 30 days. tamsulosin 2021- No [id number] .4mg Take 1 Univers 0.4 mg 24 9-23 10-24 capsule by ity of hr capsule 00:00: 04:59 mouth in [facility] 00 :00 the Medical morning Branch for 30 days. sulfur 2021- No [id number] 5mL 5 mL, Unive rs hexafluorid 02-10 Intravenou i ty of e microsphr 16:30: 16:30 s, ONCE, 1 [place] (LUMASON) 00 :00 dose, On Medica l injection 5 Annie Branch mL 02/10/22 at 1130, Routine
economics faculty member approving Restricted medication : NINFA CASTILLO traMADoL 0 Yes 50mg 50 mg, Univers (ULTRAM) 02-10 Oral, ity of tablet 50 15:10: Q6HPRN, [place] mg 57 Starting Medical on [facility] Branch 02/10/22 at 1010, Until Discontinu ed, Routine, Pain (scale 7-10) lisinopriL 0 Yes 2.5mg 2.5 mg, Uni vers (PRINIVIL,Z 02-10 Oral, ity of ESTRIL) 14:00: DAILY, [place] tablet 2.5 00 First dose Med ical mg on [facility] Branch 02/10/22 at 0900, Until Discontinu ed, Routine glipiZIDE Yes 5mg 5 mg, Univers (GLUCOTROL) 02-10 Oral, ity of tablet 5 mg 14:00: DAILY, [place] 00 First dose Medical on [facility] 02/10/22 at 0900, Until Discontinu ed, Routine enoxaparin 0 Yes 30mg 30 mg, Unive rs (LOVENOX) 02-10 Subcutaneo ity of injection 14:00: [place], DAILY, [place] 30 mg 00 First dose Medical on [facility] 02/10/22 at 0900, Until Discontinu ed, Routine levothyroxi Yes 50ug 50 mcg, Uni vers ne 02-10 Oral, ity of (SYNTHROID) 11:00: QAM-0600, [place] tablet 50 00 First dose Medi uriel mcg on [facility] 02/10/22 at 0600, Until Discontinu ed, Routine morpHINE (2 2021- No 2mg 2 mg, Slow Univers mg/mL) 02-10 IV Push, ity of injection 2 08:45: 08:01 ONCE, 1 [place] mg 00 :00 dose, On Medical [facility] 02/10/22 at 0345, Routine furosemide 0 Yes 20mg 20 mg, IV Un [place] (LASIX) 02-10 Push, Q8H, ity of injection 04:15: First dose [place] 20 mg 00 on [facility] Medical 02/09/22 at Branch 2315, Until Discontinu ed, Routine spironolact 2021-0 Yes 25mg 25 mg, Univ ers one 02-10 Oral, ity of (ALDACTONE) 04:15: DAILY, [place] tablet 25 00 First dose Medi uriel mg on Mon [place] 02/09/22 at 2315, Until Discontinu ed, Routine atorvastati 2021-0 Yes 40mg 40 mg, Univ ers n (LIPITOR) 02-10 Oral, QHS, it y of tablet 40 04:15: First dose [place] mg 00 on Mon [facility] 02/09/22 at Branch 2315, Until Discontinu [...] dose Med ical 12.5 mg on Mon [place] 02/09/22 at 2315, Until Discontinu ed, Routine tamsulosin 2021-0 Yes .4mg 0.4 mg, Univ ers (FLOMAX) 02-10 Oral, ity of capsule 0.4 04:15: DAILY, [place] mg 00 First dose Medical on Mon [place] 02/09/22 at 2315, Until Discontinu ed, Routine gabapentin 2021-0 Yes 300mg 300 mg, Uni vers (NEURONTIN) 02-10 Oral, BID, it y of capsule 300 04:15: First dose [place] mg 00 on Mon [facility] 02/09/22 at Branch 2315, Until Discontinu ed, Routine sennosides 2021-0 Yes 8.6mg 8.6 mg, Uni vers (SENOKOT) 02-10 Oral, BID, ity of tablet 8.6 04:15: First dose [place] mg 00 on Mon [facility] 02/09/22 at Branch 2315, Until Discontinu ed, Routine docusate 2021-0 Yes 100mg 100 mg, Unive rs (COLACE) 02-10 Oral, BID, ity o f capsule 100 04:15: First dose [place] mg 00 on Mon [facility] 02/09/22 at Branch 2315, Until Discontinu [...] has mental status changes. atorvastati 2021- No [id number] 40mg Take 1 Univers n 40 mg - 10-23 tablet by ity of tablet 00:00: 04:59 mouth at [place] 00 :00 bedtime Medical for 30 Branch days. metoprolol 2021- No [id number] 12.5mg Take 0.5 Univers succinate 9-22 10-23 tablets by ity of XL 25 mg 24 00:00: 04:59 mouth in [place] hr tablet 00 :00 the Medical morning Branch for 30 days. atorvastati 2021- No [id number] 40mg Take 1 Univers n 40 mg -22 10-23 tablet by ity of tablet 00:00: 04:59 mouth at [place] 00 :00 bedtime Medical for 30 Branch days. metoprolol 2021- No [id number] 12.5mg Take 0.5 Univers succinate 02-10-23 tablets [...] at 0215, 1 mL gabapentin 2021- No [id number] 300mg Take 1 Univers 300 mg 11-05 capsule by ity of capsule 00:00: 04:59 mouth 3 [place] 00 :00 (three) Medical times Branch daily for 10 days. gabapentin 2021- No [id number] 300mg Take 1 Univers 300 mg 11-05 capsule by ity of capsule 00:00: 04:59 mouth 3 [place] 00 :00 (three) Medical times Branch daily for 10 days. aspirin 81 2021- No [id number] 81mg Take 1 Univers mg chewable 6-16 07-17 tablet by it y of tablet 00:00: 04:59 mouth [place] 00 :00 daily for Medical 30 days. [place] aspirin 81 2021- No [id number] 81mg Take 1 Univers mg chewable 6-16 07-17 tablet by it y of tablet 00:00: 04:59 mouth [place] 00 :00 daily for Medical 30 days. [place] aspirin 81 2021- No [id number] 81mg Take 1 Univers mg chewable 6-16 07-17 tablet by it y of tablet 00:00: 04:59 mouth [place] 00 :00 daily for Medical 30 days. [place] proMETHazin Yes [id number] 25mg Take 1 Univers e 25 mg 6-03 tablet by ity of tablet 00:00: mouth [place] 00 every 6 Medical (six) Branch hours as needed for Nausea and Vomiting (N/V). proMETHazin Yes [id number] 25mg Take 1 Univers e 25 mg 6-03 tablet by ity of tablet 00:00: mouth [place] 00 every 6 Medical (six) Branch hours as needed for Nausea and Vomiting (N/V). proMETHazin 2-0 Yes [id number] 25mg Take 1 Univers e 25 mg 6-03 tablet by ity of tablet 00:00: mouth [place] 00 every 6 Medical (six) Branch hours as needed for Nausea and Vomiting (N/V). proMETHazin 2-0 Yes [id number] 25mg Take 1 Univers e 25 mg 6-03 tablet by ity of tablet 00:00: mouth [place] 00 every 6 Medical (six) Branch hours as needed for Nausea and Vomiting (N/V). proMETHazin 2021-0 Yes [id number] 25mg Take 1 Univers e 25 mg 6-03 tablet by ity of tablet 00:00: mouth [place] 00 every 6 Medical (six) Branch hours as needed for Nausea and Vomiting (N/V). proMETHazin 2021-0 Yes [id number] 25mg Take 1 Univers e 25 mg 6-03 tablet by ity of tablet 00:00: mouth [place] 00 every 6 Medical (six) Branch hours as needed for Nausea and Vomiting (N/V). fenofibrate 2021-2021- No [id number] 134mg Take 1 Univers micronized -19 12- capsule by it y of 134 mg 00:00: 04:59 mouth [place] capsule 00 :00 daily for Medical 30 days. Branch lisinopriL 2021-2- No [id number] 2.5mg Take 1 Univers 2.5 mg 10-19- tablet by ity of tablet 00:00: 04:59 mouth [place] 00 :00 daily for Medical 30 days. Branch fenofibrate 2021-0 2- No [id number] 134mg Take 1 Univers micronized -19 12- capsule by it y of 134 mg 00:00: 04:59 mouth [place] capsule 00 :00 daily for Medical 30 days. Branch lisinopriL 2021-0 2- No [id number] 2.5mg Take 1 Univers 2.5 mg -19 12- tablet by ity of tablet 00:00: 04:59 mouth [place] 00 :00 daily for Medical 30 days. Branch fenofibrate 2021-0 2- No [id number] 134mg Take 1 Univers micronized 5-19 12- capsule by it y of 134 mg 00:00: 04:59 mouth [place] capsule 00 :00 daily for Medical 30 days. [place] lisinopriL 2021- No [id number] 2.5mg Take 1 Univers 2.5 mg 10-19- tablet by ity of tablet 00:00: 04:59 mouth [place] 00 :00 daily for Medical 30 days. Branch furosemide 2021- No [id number] 40mg Take 1 Univers 40 mg 5-30 [...] s: atrial fibrillati on calcitrioL 2021- No [id number] .5ug Take 1 Univers 0.5 mcg -18 11-30 capsule by ity o f capsule 00:00: 04:59 mouth [place] 00 :00 daily for Medical 30 days. Branch insulin NPH 2021- No [id number] 5U inject 5 Univers (HUMULIN N 5-30 -30 Units ity of NPH U-100 00:00: 04:59 under the [place] INSULIN) 00 :00 skin every Medic al 100 unit/mL evening Branc h injection for 30 days. atorvastati 2021- No [id number] 40mg Take 1 Univers n 40 mg 5-30 -30 tablet by ity of tablet 00:00: 04:59 mouth at [place] 00 :00 bedtime Medical for 30 Branch days. carvediloL 2021- No [id number] 3.125mg Take 1 Univers 3.125 mg 5-30 -30 tablet by ity o f tablet 00:00: 04:59 mouth 2 [place] 00 :00 (two) Medical times Branch daily with meals for 30 days. furosemide 2021- No [id number] 40mg Take 1 Univers 40 mg 5-30 -30 tablet by ity of tablet 00:00: 04:59 mouth [place] 00 :00 every Medical morning Branch and evening for 30 days. apixaban 5 2021- No [id number] 5mg Take 1 Univ ers mg tablet 5-30 06-30 tablet by ity of 00:00: 04:59 mouth 2 [place] 00 :00 (two) Medical times [place] daily for 30 days. Indication s: atrial fibrillati on calcitrioL 2021- No [id number] .5ug Take 1 Univers 0.5 mcg 5-30 06-30 capsule by ity o f capsule 00:00: 04:59 mouth [place] 00 :00 daily for Medical 30 days. Branch insulin NPH 2021- No [id number] 5U inject 5 Univers (HUMULIN N 5-30 06-30 Units ity of NPH U-100 00:00: 04:59 under the [place] INSULIN) 00 :00 skin every Medic al 100 unit/mL evening Branc h injection for 30 days. atorvastati 2021- No [id number] 40mg Take 1 Univers n 40 mg 5-30 06-30 tablet by ity of tablet 00:00: 04:59 mouth at [place] 00 :00 bedtime Medical for 30 Branch days. carvediloL 2021- No [id number] 3.125mg Take 1 Univers 3.125 mg 5-30 06-30 tablet by ity o f tablet 00:00: 04:59 mouth 2 [place] 00 :00 (two) Medical times [place] daily with meals for 30 days. furosemide 2021- No [id number] 40mg Take 1 Univers 40 mg 5-30 06-30 tablet by ity of tablet 00:00: 04:59 mouth [place] 00 :00 every Medical morning Branch and evening for 30 days. apixaban 5 2021- No [id number] 5mg Take 1 Univ ers mg tablet 5-30 06-30 tablet by ity of 00:00: 04:59 mouth 2 [place] 00 :00 (two) Medical times [place] daily for 30 days. Indication s: atrial fibrillati on calcitrioL 2021- No [id number] .5ug Take 1 Univers 0.5 mcg 5-30 06-30 capsule by ity o f capsule 00:00: 04:59 mouth [place] 00 :00 daily for Medical 30 days. Branch insulin NPH 2021- No [id number] 5U inject 5 Univers (HUMULIN N 5-30 06-30 Units ity of NPH U-100 00:00: 04:59 under the [place] INSULIN) 00 :00 skin every Medic al 100 unit/mL evening Branc h injection for 30 days. atorvastati 2021- No [id number] 40mg Take 1 Univers n 40 mg 5-30 06-30 tablet by ity of tablet 00:00: 04:59 mouth at [place] 00 :00 bedtime Medical for 30 Branch days. carvediloL 2021- No [id number] 3.125mg Take 1 Univers 3.125 mg 5-30 06-30 tablet by ity o f tablet 00:00: 04:59 mouth 2 [place] 00 :00 (two) Medical times Branch daily with meals for 30 days. metFORMIN Yes [id number] 500mg Take 1 U nivers 500 mg 3-02 tablet by ity of tablet 00:00: mouth [place] ([facility]) Medical times Branch daily with meals. metFORMIN Yes [id number] 500mg Take 1 U nivers 500 mg 3-02 tablet by ity of tablet 00:00: mouth [place] (two) Medical times Branch daily with meals. metFORMIN Yes [id number] 500mg Take 1 U nivers 500 mg 3-02 tablet by ity of tablet 00:00: mouth 2 [place] (two) Medical times Branch daily with meals. metFORMIN Yes [id number] 500mg Take 1 U nivers 500 mg 3-02 tablet by ity of tablet 00:00: mouth [place] (two) Medical times Branch daily with meals. metFORMIN Yes [id number] 500mg Take 1 U nivers 500 mg 3-02 tablet by ity of tablet 00:00: mouth [place] (two) Medical times Branch daily with meals. metFORMIN Yes [id number] 500mg Take 1 U nivers 500 mg 3-02 tablet by ity of tablet 00:00: mouth 2 [place] (two) Medical times Branch daily with meals. albuterol Yes [id number] 2{puff} Inhale 2 Univers 90 2-21 Puffs 2 ity of mcg/actuati 00:00: (two) [place] on inhaler 00 times Medical daily. Branch collagenase Yes [id number] Use as Univers 250 2-21 directed ity of unit/gram 00:00: by office Juan J as ointment 00 Medical Branch cyclobenzap Yes [id number] 10mg Take 1 Univers rine 10 mg 2-21 tablet by ity of tablet 00:00: mouth 2 [place] 00 (two) Medical times Branch daily as needed for Muscle Spasms. dextrometho Yes [id number] 10mL Take 10 mL Univers rphan-guaif 2-21 [...] for Pain (scale 4-6). melatonin 3 Yes [id number] 3mg Take 1 Univers mg tablet 2-21 tablet by ity o f 00:00: mouth at [place] 00 bedtime. Medical Branch ondansetron Yes [id number] 4mg Take 1 Univers 4 mg 2-21 tablet by ity of disintegrat 00:00: mouth [place] ing tablet 00 every 8 Medica l (eight) Branch hours as needed for Nausea and Vomiting (N/V). albuterol Yes [id number] 2{puff} Inhale 2 Univers 90 2-21 Puffs 2 ity of mcg/actuati 00:00: (two) [place] on inhaler 00 times Medical daily. Branch collagenase Yes [id number] Use as Univers 250 2-21 directed ity of unit/gram 00:00: by office [place] J as ointment 00 Medical Branch cyclobenzap Yes [id number] 10mg Take 1 Univers rine 10 mg 2-21 tablet by ity of tablet 00:00: mouth 2 [place] 00 (two) Medical times Branch daily as needed for Muscle Spasms. dextrometho 0 Yes [id number] 10mL Take 10 mL Univers rphan-guaif 2-21 [...] for Pain (scale 4-6). melatonin 3 Yes [id number] 3mg Take 1 Univers mg tablet 2-21 tablet by ity o f 00:00: mouth at [place] 00 bedtime. Medical Branch ondansetron Yes [id number] 4mg Take 1 Univers 4 mg 2-21 tablet by ity of disintegrat 00:00: mouth [place] ing tablet 00 every 8 Medica l (eight) Branch hours as needed for Nausea and Vomiting (N/V). albuterol Yes [id number] 2{puff} Inhale 2 Univers 90 2-21 Puffs 2 ity of mcg/actuati 00:00: (two) [place] on inhaler 00 times Medical daily. Branch collagenase Yes [id number] Use as Univers 250 2-21 directed ity of unit/gram 00:00: by office [place] J as ointment 00 Medical Branch cyclobenzap Yes [id number] 10mg Take 1 Univers rine 10 mg 2-21 tablet by ity of tablet 00:00: mouth 2 [place] 00 (two) Medical times Branch daily as needed for Muscle Spasms. dextrometho Yes [id number] 10mL Take 10 mL Univers rphan-guaif 2-21 [...] for Pain (scale 4-6). melatonin 3 Yes [id number] 3mg Take 1 Univers mg tablet 2-21 tablet by ity o f 00:00: mouth at [place] 00 bedtime. Medical Branch ondansetron Yes [id number] 4mg Take 1 Univers 4 mg 2-21 tablet by ity of disintegrat 00:00: mouth [place] ing tablet 00 every 8 Medica l (eight) Branch hours as needed for Nausea and Vomiting (N/V). albuterol Yes [id number] 2{puff} Inhale 2 Univers 90 2-21 Puffs 2 ity of mcg/actuati 00:00: (two) [place] on inhaler 00 times Medical daily. Branch collagenase 0 Yes [id number] Use as Univers 250 2-21 directed ity of unit/gram 00:00: by office [place] J as ointment 00 Medical Branch cyclobenzap Yes [id number] 10mg Take 1 Univers rine 10 mg 2-21 tablet by ity of tablet 00:00: mouth 2 [place] 00 (two) Medical times Branch daily as needed for Muscle Spasms. melatonin 3 Yes [id number] 3mg Take 1 Univers mg tablet 2-21 tablet by ity o f 00:00: mouth at [place] 00 bedtime. Medical Branch ondansetron Yes [id number] 4mg Take 1 Univers 4 mg 2-21 tablet by ity of disintegrat 00:00: mouth [place] ing tablet 00 every 8 Medica l (eight) Branch hours as needed for Nausea and Vomiting (N/V). albuterol Yes [id number] 2{puff} Inhale 2 Univers 90 2-21 Puffs 2 ity of mcg/actuati 00:00: (two) [place] on inhaler 00 times Medical daily. Branch collagenase Yes [id number] Use as Univers 250 2-21 directed ity of unit/gram 00:00: by office [place] J as ointment 00 Medical Branch cyclobenzap Yes [id number] 10mg Take 1 Univers rine 10 mg 2-21 tablet by ity of tablet 00:00: mouth 2 [place] 00 (two) Medical times Branch daily as needed for Muscle Spasms. melatonin 3 Yes [id number] 3mg Take 1 Univers mg tablet 2-21 tablet by ity o f 00:00: mouth at [place] 00 bedtime. Medical Branch ondansetron Yes [id number] 4mg Take 1 Univers 4 mg 2-21 tablet by ity of disintegrat 00:00: mouth [place] ing tablet 00 every 8 Medica l (eight) Branch hours as needed for Nausea and Vomiting (N/V). albuterol Yes [id number] 2{puff} Inhale 2 Univers 90 2-21 Puffs 2 ity of mcg/actuati 00:00: (two) [place] on inhaler 00 times Medical daily. Branch collagenase Yes [id number] Use as Univers 250 2-21 directed ity of unit/gram 00:00: by office [place] J as ointment 00 Medical Branch cyclobenzap Yes [id number] 10mg Take 1 Univers rine 10 mg 2-21 tablet by ity of tablet 00:00: mouth 2 [place] 00 (two) Medical times Branch daily as needed for Muscle Spasms. melatonin 3 Yes [id number] 3mg Take 1 Univers mg tablet 2-21 tablet by ity o f 00:00: mouth at [place] 00 bedtime. Medical Branch ondansetron Yes [id number] 4mg Take 1 Univers 4 mg 2-21 tablet by ity of disintegrat 00:00: mouth [place] ing tablet 00 every 8 Medica l (eight) Branch hours as needed for Nausea and Vomiting (N/V). dextrometho 2021- No [id number] 10mL Take 10 mL Univers rphan-guaif 07-12 [...] 00:00: 00:00 Patient 00 :00 [facility] Diflunisal Diflunisal 2015- No Todd Wynn [...] Yes [address] [facility] [address] Bisulfate Bisulfate [facility] (Plavix) 75 (Plavix) 75 P atient Mg Tablet Mg Tablet Medic al Center Cyclobenzap Cyclobenzap Yes [address] [facility] [address] rine Hcl rine Hcl Times A [facility] (Flexeril) (Flexeril) Day as P atient 5 Mg Tablet 5 Mg Tablet needed for [facility] Spasms Doxazosin Doxazosin Yes [address] [address] Mesylate Mesylate [facility] (Cardura) 8 (Cardura) 8 P atient Mg [...] [facility] Mg Tablet Mg Tablet Day [facility] Patient Medical [place] Hydrocodone Hydrocodone Yes [address] [facility] Bit/Acetami Bit/Acetami Hours as [facility] nophen nophen needed for Pat[facility] nt ([place] [facility] 10-325 10-325 Center Tablet) 1 [...] 2.5 Mg [facility] Tablet Tablet Patient [facility] [place] Metformin Metformin Yes [address] [facility] H[facility] Hcl Day [facility] (Glucophage (Glucophage P atient ) 1,000 Mg ) 1,000 Mg Med ical Tablet Tablet Center Methadone Methadone Yes 5 Every [address] Hcl 5 Mg Hcl 5 Mg Hours [facility] Tablet Tablet Patient [facility] [place] Metoprolol Metoprolol Yes [address] Tartrate 25 Tartrate 25 L ukes Mg Tablet Mg Tablet Patie nt [facility] Nitroglycer Nitroglycer Yes As Needed [facility] in in [facility] (Nitrostat) (Nitrostat) P atient 0.4 Mg 0.4 Mg Medical Tab.subl Tab.subl Center Omeprazole Omeprazole Yes [address] 20 Mg 20 Mg [facility] Capsule.dr [facility]. [facility] Simvastatin Simvastatin Yes [address] 80 Mg 80 Mg [facility] Tablet Tablet Patient [facility] Tamsulosin Tamsulosin Yes Daily [facility] Hcl 0.4 Mg Hcl 0.4 Mg Esme es Cap.er.24h Cap.er.24h [facility] Tramadol Tramadol Yes [address] Hcl Hcl Daily as [facility] (Ultram) 50 (Ultram) 50 needed for Patient Mg Tablet Mg Tablet Pain Medic al Center Venlafaxine Venlafaxine Yes [address] Hcl 75 Mg Hcl 75 Mg [facility] Tab Tab Patient [facility] Albuterol Albuterol 2017- No [address] [facility] Sulfate Sulfate 10-15 Day as [facility] (Proair Hfa (Proair Hfa 00:00 needed for Patient Inhaler*) Inhaler*) :00 [facility] Medical 8.5 Gm Inh, 8.5 Gm Inh, Of [facility] Center 1 Inh 1 Inh Inhalation Inhalation Dicyclomine Dicyclomine 2017- No [address] Hcl 20 Mg Hcl 20 Mg 10-15 Daily Esme es Tablet, 20 Tablet, 20 00:00 Pa tient Mg Oral Mg Oral :00 [facility] Insulin Insulin 2017- No 40 7AM [...] 06-17 [facility] Capsule., Capsule., 00:00 Patient :00 [facility] Insulin Insulin 90 Twice A [...] 25 Mg Oral 25 Mg Oral :00 [facility] Albuterol Albuterol As Needed [facility] Sulfate Sulfate 11-23 as needed Esme es (Ventolin (Ventolin 00:00 for Manjula ent Hfa) 18 Gm Hfa) 18 Gm :00 [facility] Medical Hfa.aer.ad, Hfa.aer.ad, Of [facility] 90 Mcg 90 Mcg Inhalation Inhalation Dicyclomine Dicyclomine Twice A [facility] H[facility] 10 Mg Hcl 10 Mg 11-23 Day Luke s Capsule, 10 Capsule, 10 00:00 Patient Mg Oral Mg Oral :00 [facility] Methocarbam Methocarbam [address] [...] 10 Mg Oral 10 Mg Oral :00 [facility] ical Center Gabapentin Gabapentin 2014- No [address] 300 Mg 300 Mg 07- Times A [facility] Capsule, Capsule, 00:00 Day Patien t 600 Mg Oral 600 Mg Oral :00 M [facility] Pregabalin Pregabalin 2013- No 150 Twice [...] Immunization Date Status Comments [facility] e Immunization Name Name Influenza Virus 2021-01-16 Completed Universit y of Vaccine 00:00:00 [facility] Influenza Virus 2021-01-16 Completed Universit y of Vaccine 00:00:00 [facility] Influenza Virus 2021-01-16 Completed Universit y of Vaccine 00:00:00 [facility] Influenza Virus 2021-01-16 Completed Universit y of Vaccine 00:00:00 [facility] Influenza Virus 2021-01-16 Completed Universit y of Vaccine 00:00:00 [facility] Influenza Virus 2021-01-16 Completed Universit y of Vaccine 00:00:00 [facility] SARS-COV-2 COVID-19 2020-10-16 Completed Unive rsity of PEDRO/J&J VACCINE 00:00:00 [facility] SARS-COV-2 COVID-19 2020-10-16 Completed Unive rsity of PEDRO/J&J VACCINE 00:00:00 [facility] SARS-COV-2 COVID-19 2020-10-16 Completed Unive rsity of PEDRO/J&J VACCINE 00:00:00 [facility] SARS-COV-2 COVID-19 2020-10-16 Completed Unive rsity of PEDRO/J&J VACCINE 00:00:00 [facility] SARS-COV-2 COVID-19 2020-10-16 Completed Unive rsity of PEDRO/J&J VACCINE 00:00:00 [facility] SARS-COV-2 COVID-19 2020-10-16 Completed Unive rsity of PEDRO/J&J VACCINE 00:00:00 [facility] Influenza Virus 2020-01-21 Completed Universit y of Vaccine 00:00:00 [facility] Influenza Virus 2020-01-21 Completed Universit y of Vaccine 00:00:00 [facility] Influenza Virus 2020-01-21 Completed Universit y of Vaccine 00:00:00 [facility] Influenza Virus 2020-01-21 Completed Universit y of Vaccine 00:00:00 [facility] Influenza Virus 2020-01-21 Completed Universit y of Vaccine 00:00:00 [facility] Influenza Virus 2020-01-21 Completed Universit y of Vaccine 00:00:00 [facility] Zoster Vaccine 2019-07-17 Completed University of Recombinant 00:00:00 [facility] Zoster Vaccine 2019-07-17 Completed University of Recombinant 00:00:00 [facility] Zoster Vaccine 2019-07-17 Completed University of Recombinant 00:00:00 [facility] Zoster Vaccine 2019-07-17 Completed University of Recombinant 00:00:00 [facility] Zoster Vaccine 2019-07-17 Completed University of Recombinant 00:00:00 [facility] Zoster Vaccine 2019-07-17 Completed University of Recombinant 00:00:00 [facility] Td 2019-03-29 Completed University of 00:00:00 [facility] Td 2019-03-29 Completed University of 00:00:00 [facility] Td 2019-03-29 Completed University of 00:00:00 [facility] Td 2019-03-29 Completed University of 00:00:00 [facility] Td 2019-03-29 Completed University of 00:00:00 [facility] Td 2019-03-29 Completed University of 00:00:00 [facility] Influenza Virus 2018-02-18 Completed Universit y of Vaccine 00:00:00 [facility] Pneumococcal 2018-02-18 Completed University o f Polysaccharide, 00:00:00 [place] [facility] PPSV23 (PNEUMOVAX) [place] Influenza Virus 2018-02-18 Completed Universit y of Vaccine 00:00:00 [facility] Pneumococcal 2018-02-18 Completed University o f Polysaccharide, 00:00:00 [place] [facility] PPSV23 (PNEUMOVAX) [place] Influenza Virus 2018-02-18 Completed Universit y of Vaccine 00:00:00 [facility] Pneumococcal 2018-02-18 Completed University o f Polysaccharide, 00:00:00 [place] [facility] PPSV23 (PNEUMOVAX) Branch Influenza Virus 2018-02-18 Completed Universit y of Vaccine 00:00:00 [facility] Pneumococcal 2018-02-18 Completed University o f Polysaccharide, 00:00:00 [place] [facility] PPSV23 (PNEUMOVAX) Branch Influenza Virus 2018-02-18 Completed Universit y of Vaccine 00:00:00 [facility] Pneumococcal 2018-02-18 Completed University o f Polysaccharide, 00:00:00 [place] [facility] PPSV23 (PNEUMOVAX) Branch Influenza Virus 2018-02-18 Completed Universit y of Vaccine 00:00:00 [facility] Pneumococcal 2018-02-18 Completed University o f Polysaccharide, 00:00:00 [place] [facility] PPSV23 (PNEUMOVAX) Branch Influenza Virus 2008-03-19 Completed Universit y of Vaccine 00:00:00 [facility] Pneumococcal 2008-03-19 Completed University o f Polysaccharide, 00:00:00 [place] [facility] PPSV23 (PNEUMOVAX) Branch Influenza Virus 2008-03-19 Completed Universit y of Vaccine 00:00:00 [facility] Pneumococcal 2008-03-19 Completed University o f Polysaccharide, 00:00:00 [facility] ical PPSV23 (PNEUMOVAX) Branch Influenza Virus 2008-03-19 Completed Universit y of Vaccine 00:00:00 [facility] Pneumococcal 2008-03-19 Completed University o f Polysaccharide, 00:00:00 [place] [facility] PPSV23 (PNEUMOVAX) Branch Influenza Virus 2008-03-19 Completed Universit y of Vaccine 00:00:00 [facility] Pneumococcal 2008-03-19 Completed University o f Polysaccharide, 00:00:00 [place] [facility] PPSV23 (PNEUMOVAX) Branch Influenza Virus 2008-03-19 Completed Universit y of Vaccine 00:00:00 [facility] Pneumococcal 2008-03-19 Completed University o f Polysaccharide, 00:00:00 [place] [facility] PPSV23 (PNEUMOVAX) Branch Influenza Virus 2008-03-19 Completed Universit y of Vaccine 00:00:00 [facility] Pneumococcal 2008-03-19 Completed University o f Polysaccharide, 00:00:00 [place] [facility] PPSV23 (PNEUMOVAX) [place] Vital Signs Vital Name Observation Time Observation Value Comments Source Systolic blood 2022-02-10 105 mm[Hg] University of pressure 16:35:00 [place] [facility] Diastolic blood 2022-02-10 57 mm[Hg] University o f pressure 16:35:00 [facility] Heart rate 2022-02-10 65 /min University of 16:35:00 [facility] Body temperature 2022-02-10 36.22 Sandy University of 16:35:00 [facility] Respiratory rate 2022-02-10 18 /min University of 16:35:00 [facility] Oxygen saturation 2022-02-10 98 /min University of in Arterial blood 16:35:00 [place] [facility] uriel by Pulse oximetry Branch Body weight 2022-02-10 74.98 kg University of 08:16:00 [facility] BMI 2022-02-10 25.89 kg/m2 University of 08:16:00 [facility] Body height 2022-02-10 170.2 cm Height before University of 01:18:00 Bilat BKA [facility] Systolic blood 2021-11-09 124 mm[Hg] University of pressure 23:00:00 [facility] Diastolic blood 2021-11-09 69 mm[Hg] University o f pressure 23:00:00 [facility] [place] [facility] Heart rate 2021-11-09 72 /min University of 23:00:00 [facility] Respiratory rate 2021-11-09 25 /min University of 23:00:00 [facility] Oxygen saturation 2021-11-09 98 /min University of in Arterial blood 23:00:00 [facility] uriel by Pulse oximetry Branch Body temperature 2021-11-09 37.22 Sandy University of 20:28:39 [facility] Body height 2021-11-09 170.2 cm University of 20:16:00 [facility] Body weight 2021-11-09 71.215 kg University of 20:16:00 [facility] BMI 2021-11-09 24.59 kg/m2 University of 20:16:00 [facility] Systolic blood 2021-11-05 134 mm[Hg] University of pressure 10:00:00 [facility] Diastolic blood 2021-11-05 78 mm[Hg] University o f pressure 10:00:00 [facility] Heart rate 2021-11-05 81 /min University of 10:00:00 [facility] Body temperature 2021-11-05 36.28 Sandy University of 08:10:00 [facility] Respiratory rate 2021-11-05 18 /min [facility] 08:00:00 [facility] Oxygen saturation 2021-11-05 99 /min [facility] Arterial blood 08:00:00 [facility] by Pulse oximetry [place] Body height 2021-11-05 170.2 cm [facility] 05:48:00 [facility] Body weight 2021-11-05 71.215 kg [facility] 05:48:00 [facility] BMI 2021-11-05 24.59 kg/m2 [facility] 05:48:00 [facility] Procedures Procedure Date / Time Performing Clinician Source Performed INSURANCE CORRESPONDENCE 2022-04-19 06:01:00 Doctor Unassigned, [facility] [place] TRANSTHORACIC ECHO (TTE) 2022-02-10 13:16:00 Martha Rowe [facility] COMPLETE W/ CONTRAST Medical Bra nch PHOSPHORUS 2022-02-10 10:22:00 Martha Rowe [facility] MAGNESIUM 2022-02-10 10:22:00 Jae marilu [facility] TROPONIN I 2022-02-10 10:22:00 Martha Rowe [facility] COMP. METABOLIC PANEL 2022-02-10 10:22:00 Martha Rowe [facility] ([id number]) [facility] CBC WITH DIFF 2022-02-10 10:22:00 Martha Rowe [facility] CREATINE KINASE 2022-02-10 04:37:00 Martha Rowe [facility] URIC ACID 2022-02-10 04:37:00 Martha Rowe [facility] FERRITIN SERUM 2022-02-10 04:37:00 Martha Rowe [facility] FOLATE 2022-02-10 04:37:00 Jae marilu [facility] TROPONIN I 2022-02-10 04:37:00 Martha Rowe [facility] THYROID STIMULATING 2022-02-10 04:37:00 Martha Rowe [facility] HORMONE Medical Branch LIPID PANEL ([id number])(TOTAL 2022-02-10 04:37:[address] [facility] CHOLESTEROL, Medical Branch TRIGLYCERIDES, HDL) IRON PANEL 2022-02-10 04:37:00 Martha Rowe [facility] GLYCOSYLATED HEMOGLOBIN 2022-02-10 04:37:00 Martha Rowe [facility] (A1C) [facility] N-TERMINAL PRO-BNP 2022-02-10 04:37:00 Martha Rowe [facility] VITAMIN D, 25-OH 2022-02-10 04:37:00 Jae marilu [facility] COVID-19 (ID NOW RAPID 2022-02-10 04:37:00 Martha Rowe [facility] TESTING) [facility] B-TYPE NATRIURETIC FACTOR 2022-01-30 18:10:00 [facility] I [facility] ([facility] Center XR CHEST 1 VW 2021-11-09 21:07:00 Troy Ku Mckenzie [facility] POCT GLUCOSE (AUTOMATED) 2021-11-09 20:25:00 Troy Ku [facility] MAGNESIUM 2021-11-09 20:19:00 Troy Ku Mckenzie [facility] TROPONIN I 2021-11-09 20:19:00 Troy Ku Mckenzie [facility] COMP. METABOLIC PANEL 2021-11-09 20:19:00 Troy Ku [facility] ([id number]) [facility] CBC WITH DIFF 2021-11-09 20:19:00 Troy Ku Mckenzie [facility] N-TERMINAL PRO-BNP 2021-11-09 20:19:00 Troy Ku [facility] XR CHEST 1 VW 2021-11-05 06:38:35 Mihaela Martin [facility] [id number] 2020-08-11 00:00:00 ALDMO [facility] [id number] 2020-08-11 00:00:00 ALDMO [facility] [id number] 2020-08-11 00:00:00 ALDMO [facility] [id number] 2020-08-11 00:00:00 ALDMO [facility] Computed tomography 2017-10-24 00:00:00 BROOKE ALEXIS LUCY [facility] Patient angiography of brain Medical Agustin ter CT angiography of chest 2017-10-23 00:00:00 KHAI WAHL V C HI [facility] Patient Medical Center Computed tomography of 2017-10-23 00:00:00 KHAI WAHL V [facility] Patient brain without radiopaque Medical Center contrast [...] Clinicians Facility Department ID 2021-06-17 Outpatient [id number] ENCKY MALDONADO [id number] [facility] 10:24:03 [id number] [facility] 2021-06-17 Outpatient [id number] ENCKY REF [id number] [facility] 10:22:04 [id number] [facility] 2021-03-22 Emergency [facility] [id number] Univers 15:25:20 ity of [facility] 2021-03-22 Emergency [facility] [id number] Univers 10:56:41 ity of [facility] 2021-03-21 Emergency [facility] [id number] Univers 18:15:08 ity of [facility] 2021-03-21 Emergency [facility] [id number] Univers 17:18:22 ity of [facility] 2021-03-21 Emergency [facility] [id number] Univers 12:58:19 ity of [facility] 2021-03-21 Emergency [facility] [id number] Univers 04:06:22 ity of [facility] 2021-03-21 Emergency [facility] [id number] Univers 00:12:27 ity of [facility] 2021-03-20 Emergency [facility] [id number] Univers 00:55:44 ity of [facility] 2021-03-19 Emergency [facility] [id number] Univers 17:28:47 ity of [facility] 2021-03-19 Emergency [facility] [id number] Univers 03:16:03 ity of [facility] 2021-03-18 Emergency [facility] [id number] Univers 13:56:50 ity of [facility] 2020-08-23 Inpatient HCACL FERNANDO [id number] [facility] 17:41:00 84 [facility] 2020-04-04 Inpatient Marko, HCAMN HCAMN [id number] [facility] 14:40:00 Edward 33 [facility] 2019-10-15 Inpatient RADHA Shah, HCAPM ENDO [id number] [facility] 15:30:00 Finn [id number] [facility] 2022-04-19 2022-04-19 Orders Doctor JOSE [id number] Univers 00:00:00 00:00:00 Only Unassigned, [place] [id number] ity of [facility] [id number] Juan J as [id number] [facility] 009 Branch 2022-02-11 2022-02-11 Transition CLAUDETTE HardingTanya [id number] Univers 00:00:00 00:00:00 of Care Josselyntoni DUQUE [id number] it y of [id number] [id number] [facility] 403 Branch 2022-02-09 2022-02-10 Outpatient U JAE [facility] D[facility] [id number] Univers 19:53:00 13:45:00 ADMARILU ity of [facility] 2022-02-09 2022-02-10 Hospital Ana Maria Meza [facility] [id number] Univers 19:53:00 13:45:00 Encounter Martha Rowe [id number] ity of [place] [id number] [place] [facility] [id number] [facility] 081 Branch 2022-01-30 2022-01-30 Lab [facility] [id number] 00:00:00 00:00:00 Requisitio Esme [facility] 2022-01-30 2022-01-[address] [facility] [id number] 00:00:00 00:00:00 Requisitiji Victoria [facility] 2021-11-09 2021-11-09 Emergency X HEBERT, K [facility] ERT [id number] Univers 15:15:00 18:32:00 ity of [facility] 2021-11-09 2021-11-09 Emergency Troy Ku [facility] [id number] Univers 15:15:00 18:32:00 Mckenzie PEREZ [id number] i ty of [place]ANCHRI[place]INE [id number] [facility] [phone] [place] [id number] Branch 2021-11-05 2021-11-05 Emergency X VERONICANEW [facility] ERT [id number] Univers 00:44:00 06:53:00 MIHAELA baugh [facility] 2021-11-05 2021-11-05 Emergency [facility] [id number] Univers 00:44:00 06:53:00 Mihaela PEREZ [id number] ity of [facility] [id number] [facility] [id number] [facility] 084 Branch 2021-11-04 2021-11-04 Transition Feliciano CLAUDETTETanya [id number] Univers 00:00:00 00:00:00 of Jennifer [place] [id number] it y of [place] [id number] [facility] [id number] [facility] 403 Branch 2021-11-02 2021-11-03 Outpatient X BRAYDON [facility] [id number] Univers 22:35:00 15:46:00 OC baugh [facility] 2021-11-02 2021-11-03 Emergency Curtis Xavier [facility] 1.2.840. 114 [id number] Univers 22:35:00 15:46:00 Oc Bryson [id number] ity of [facility] [id number] [facility] [id number] [facility] 081 Branch 2021-11-02 2021-11-03 Outpatient X BRAYDON [facility] [id number] Univers 22:35:00 15:46:00 OC baugh [facility] 2021-11-01 2021-11-01 Transition LATRICE Feliciano 1.2.840.114 [id number] Univers 00:00:00 00:00:00 of Care Micaela [place] [id number] it y of [place] [id number] [facility] [id number] [facility] 403 Branch 2021-10-27 2021-10-29 [facility] [id number] Univers 17:41:00 14:03:00 ANA MARIA vahsti [facility] 2021-10-27 2021-10-29 Emergency Jameson Mejia [facility] 1.2.840. 114 [id number] Univers 17:41:00 14:03:00 Lizett Gerardo [id number] ity of [place] [id number] [facility] [id number] [address] 2021-10-27 2021-10-29 [facility] [id number] Univers 17:41:00 14:03:00 ANA MARIA vashti [facility] 2021-10-21 2021-10-22 Emergency X ELVINNEW [facility] ERT [id number] Univers 20:24:00 04:18:00 JYOTI vashti [facility] 2021-10-21 2021-10-22 Emergency CedenoNEW [facility] [id number] Univers 20:24:00 04:18:00 Jyoti PEREZ [id number] i Joy [id number] [facility] [id number] [facility] 084 Branch 2021-10-20 2021-10-20 Transition LATRICE Aleman 1.2.840.114 [id number] Univers 00:00:00 00:00:00 of Care Rico DU[place] [id number] [id number] [id number] [facility] 403 Branch 2021-10-15 2021-10-18 Outpatient X DERRICK [facility] [id number] Univers 16:42:00 13:52:00 ANA MARIA singhvashti [facility] 2021-10-15 2021-10-18 Emergency Jameson Mejia [facility] 1.2.840. 114 [id number] Univers 16:42:00 13:52:00 Ana Maria Meza [id number] ity of [id number] [facility] [id number] [facility] 081 Branch 2021-07-23 2021-07-23 Transition LATRICE Farooq 1.2.840.114 [id number] Univers 00:00:00 00:00:00 of Care Marcella [place] [id number] i ty [id number] [address] 2021-07-19 2021-07-22 Inpatient X RENEANEW [facility] DARIUS [id number] Univers 09:10:00 17:00:00 GEOFFREY baugh [facility] 2021-07-19 2021-07-22 [facility] Brandyn Dumont [facility] 1.2.840.1 [id number] Univers 09:10:00 17:00:00 Encounter Geoffrey Hill [facility] [id number] ity of [id number] ME[place] [id number] [facility] 109 Branch (CLC) 2021-07-21 2021-07-21 Outpatient Wong_H VFP VFP [id number] Village 06:58:00 06:58:00 [id number] Family Practic e 2021-07-13 2021-07-13 Transition LATRICE Aleman 1.2.840.114 [id number] Univers 00:00:00 00:00:00 of Care Rico DU[place] [id number] [id number] [id number] [place] [address] Branch 2021-06-28 2021-07-12 Inpatient X REBECCA [facility] [id number] Univers 10:43:00 18:25:00 AMBIKA singhvashti [facility] 2021-06-28 2021-07-12 [facility] Jameson Mejia [facility] 1.2.840.1 [id number] Univers 10:43:00 18:25:00 Encounter Troy Ku [id number] ity of Ambika Fernandez [place] [id number] [facility] [id number] [facility] 081 Branch 2021-02-15 2021-02-15 [facility] [id number] Univers 15:00:00 15:00:00 ALECIA [facility] 2021-01-11 2021-01-11 [facility] [id number] Univers 10:45:00 10:45:00 GINA baugh o anuj [facility] 2021-01-05 2021-01-05 Transition Latrice Aleman 1.2.840.114 [id number] Univers 00:00:00 00:00:00 of Care Rico Duque 350.1.13.10 ity of [place] 4.2.7.2.686 [facility] [phone] [facility] 403 Branch 2021-01-01 2021-01-04 [facility] Wayne Can [facility] 1.2.840.1 14 [id number] Univers 14:18:00 18:10:00 Encounter Lizett Gerardo 350.1.13.10 it[place] of [place] [phone] [facility] 081 Branch 2021-01-01 2021-01-01 Orders Doctor JOSE 1.2.840.114 [id number] Univers 00:00:00 00:00:00 Only Unassigned, CAROLNIA 350.1.13.10 ity of [place] [facility] 4.2.7.2.686 Juan J as [phone] [facility] 009 Branch 2020-12-17 2020-12-17 Transition Latrice Harding 1.2.840.114 [id number] Univers 00:00:00 00:00:00 of Care Josselyn Duque 350.1.13.10 it y of [place] 4.2.7.2.686 [facility] [phone] [facility] 403 [address] 2020-12-14 2020-12-16 Emergency Jyoti Cedeno S [facility] 1.2.840.1 14 [id number] Univers 17:50:00 17:46:00 Ana Maria Meza 350.1.13.10 ity of [place] 4.2.7.2.686 [facility] [phone] [facility] 081 Branch 2020-11-16 2020-11-16 Orders Doctor JOSE 1.2.840.114 [id number] Univers 00:00:00 00:00:00 Only Unassigned, CAROLINA 350.1.13.10 [place] [facility] 4.2.7.2.686 [facility] [phone] [facility] 009 Branch 2020-10-30 2020-11-05 Inpatient EM [facility] [id number] [facility] 16:50:00 13:52:00 Fede 13075 [facility] 2020-10-31 2020-10-31 Outpatient ANNEL Carrera LABO [id number] [facility] 08:22:00 08:22:00 Fede 73 [facility] 2020-10-28 2020-10-28 Hospital Radiology [facility] 1.2.840.114 [id number] Univers 08:30:17 23:59:00 Encounter Sera 350.1.13.10 ity of [place] 4.2.7.2.686 [facility] [phone] [facility] 807 Branch 2020-10-28 2020-10-28 Hospital Radiology [facility] 1.2.840.114 [id number] 08:30:17 23:59:00 Encounter [place] 350.1.13.10 [place] 4.2.7.2.686 [place] [id number] 807 2020-10-28 2020-10-28 Outpatient R RADIOLOGY [facility] [id number] Univers 00:00:00 00:00:00 ity of [facility] 2020-10-12 2020-10-12 [facility] 1.2.840.114 [id number] Univers 14:02:10 14:50:48 Visit Bryan Sera 350.1.13.10 i [place] [phone] Nd dical [facility] 204 [facility] 2020-10-12 2020-10-12 [facility] [id number] Univers 14:00:00 14:50:48 BRYAN ity [facility] 2020-10-12 2020-10-12 Outpatient [facility] [id number] Univers 14:00:00 14:00:00 [facility] 2020-10-06 2020-10-06 Office [facility] 1.2.840.114 [id number] Univers 10:43:51 11:59:29 Visit Gina Perez 350.1.13.10 ity [facility] 4.2.7.2.[place] [phone] Nd dical [address] 2020-10-06 2020-10-06 Office [facility] 1.2.840.114 [id number] 10:43:51 11:59:29 Visit Gina Perez 350.1.13.10 [place] 4.2.7.2.686 Professio [phone] [address] 2020-10-06 2020-10-06 [facility] [id number] Univers 10:30:00 10:30:00 GINA baugh o f [facility] 2020-10-06 2020-10-06 Orders Doctor GARCIA 1.2.840.114 [id number] Univers 00:00:00 00:00:00 Only Unassigned, [place] 350.1.13.10 ity of [place] [facility] 4.2.7.2.686 Juan J as [phone] [address] 2020-09-28 2020-09-28 Emergency [facility] 1.2.840.114 [id number] Univers 17:28:00 21:08:00 Óscar Anuj Perez 350.1.13.10 ity of [place] 4.2.7.2.686 [facility] [phone] [facility] 084 Branch 2020-09-28 2020-09-28 Transition Latrice French 1.2.840.114 [id number] Univers 00:00:00 00:00:00 of Care Gilda Duque 350.1.13.10 it [place] of [place].2.7.[place] [phone] [facility] 403 [address] 2020-09-23 2020-09-26 [facility] Juan José Wayne [facility] 1.2.840.1 14 [id number] Univers 13:50:00 18:28:00 Encounter Ambika Fernandez 350.1.13.10 ity of [place] 4.2.7.2.686 [facility] [phone] [place] 596[place] 2020-09-23 2020-09-26 Inpatient X GABRIELEALEJANDRA [facility] [id number] Univers 13:50:00 18:28:00 AMBIKA baugh [facility] 2020-09-22 2020-09-22 Outpatient [facility] [id number] Univers 09:45:00 09:45:00 GINA palacio [facility] 2020-09-10 2020-09-10 Outpatient [facility] [id number] Univers 16:15:00 16:15:00 BRYAN baugh [facility] 2020-09-09 2020-09-09 Transition Latrice Aleman 1.2.840.114 [id number] Univers 00:00:00 00:00:00 of Care Rico Duque 350.1.13.10 it[place] of [place].2.7.[place] [phone] [facility] 403 [place] 2020-09-08 2020-09-08 Outpatient [facility] [id number] Univers 08:30:00 08:30:00 GINA palacio [facility] 2020-09-02 2020-09-07 [facility] Jose Guy [facility] 1.2.840.114 [id number] Univers 16:46:00 18:45:00 [facility] 350. 1.13.10 ity of [place] 4.2.7.2.686 [place] Kaylyn Calvin [phone] [address] ([facility]) 2020-08-26 2020-08-26 Office Jani [facility] 1.2.840.114 [id number] Univers 10:44:06 11:14:06 Visit [facility] 350.1.13.10 it y of [place] [phone] [address] Office Building 2020-08-26 2020-08-26 Outpatient R THA GUNTER [facility] [id number] Univers 10:30:00 10:30:00 ity of [facility] 2020-08-25 2020-08-25 Outpatient R IVANA [facility] [id number] Univers 10:00:00 10:00:00 GINA palacio [facility] 2020-08-24 2020-08-24 Outpatient R YENI [facility] [id number] Univers 09:00:00 09:00:00 DEIDRE baugh [facility] 2020-08-21 2020-08-21 [facility] 1.2.840.114 [id number] Univers 08:43:52 09:13:46 Visit Gina Perez 350.1.13.10 ity of [place] 4.2.[place].2.686 [place] [facility] [phone] N[place] dical [place] [address] Branch Building 2020-08-21 2020-08-21 Outpatient Tim HEATH [facility] [id number] Univers 08:30:00 08:30:00 GINA palacio [facility] 2020-08-10 2020-08-14 Inpatient ANNEL CareyCL INTE.02 [id number] [facility] 09:09:00 18:56:00 Johnie [place] [facility] 2020-08-11 2020-08-11 Outpatient [facility] [id number] Univers 09:15:00 09:15:00 GINA palacio [facility] 2020-08-07 2020-08-07 Outpatient [facility] [id number] Univers 10:00:00 10:00:00 GINA palacio [facility] 2020-07-27 2020-08-06 [facility] Jameson Mejia 1.2.840.1 14 [id number] Univers 12:13:00 17:15:00 Encounter Minnie Cardona 350.1.13.10 ity of [facility] 4.2.7.2.686 [place] Drew Noriega [phone] [facility] Johnie Skinner 090 [place] 2020-07-27 2020-08-06 Inpatient JOHNIE SKINNER [facility] [id number] Univers 12:13:00 17:15:00 ity of [facility] 2020-07-24 2020-07-24 Outpatient [facility] [id number] Univers 13:00:00 13:00:00 GINA palacio [facility] 2020-07-21 2020-07-21 Transition Latrice Aleman 1.2.840.114 [id number] Univers 00:00:00 00:00:00 of Care Rico Duque 350.1.13.10 ity of [place] 4.2.7.2.686 Noe beckett [phone] [place] [address] Branch 2020-07-10 2020-07-20 [facility] Janeth Leal 1.2.84 0.114 [id number] Univers 19:24:00 21:51:00 Encounter Oc Bryson 350.1.13.10 ity of Janeth Leal [facility] 4.2.7.2.686 [place] Minnie Cardona [phone] Medical Lisa Marroquin [address] 2020-07-17 2020-07-17 Outpatient [facility] [id number] Univers 10:00:00 10:00:00 JOSE itvashti [facility] 2020-07-10 2020-07-10 Outpatient R IVANA [facility] [id number] Univers 08:45:00 08:45:00 GINA amauri o f [facility] 2020-06-15 2020-06-15 Telephone [facility] 1.2.326.705 [id number] Univers 00:00:00 00:00:00 Jose Perez 350.1.13.10 i ty of [place].2.686 [place] [facility] [phone] Nd dical nal 204 [address] Building 2020-06-11 2020-06-11 Office [facility] 1.2.840.114 [id number] Univers 13:43:55 13:58:55 Visit [facility] 350.1.13.10 it y of [place].2.7.2.686 [place] [facility] [phone] Med ical [facility] 188 Branch 2020-06-11 2020-06-11 Outpatient R JANKI [facility] [id number] Univers 13:30:00 13:30:00 JOSE baugh [facility] 2020-06-03 2020-06-03 Transition LoveClaudette bennetttanya 1.2.840.114 [id number] Univers 00:00:00 00:00:00 of Care Rico Duque 350.1.13.10 ity of [place].2.[place] [phone] [facility] 403 [address] 2020-05-29 2020-06-02 [facility] Jameson Mejia [facility] 1.2.840.1 14 [id number] Univers 09:12:00 16:02:00 Encounter Lizett Gerardo 350.1.13.10 ity of [place] 4.2.7.2.686 [facility] [phone] [facility] 081 Branch 2020-05-29 2020-06-02 Inpatient X JAE [facility] [id number] Univers 09:12:00 16:02:00 MARTHA baugh [facility] 2020-05-29 2020-05-29 Outpatient R JANKI [facility] [id number] Univers 10:15:00 10:15:00 JOSE baugh [facility] 2020-04-23 2020-04-23 Office [facility] 1.2.840.114 [id number] Univers 13:48:18 14:03:18 Visit [facility] 350.1.13.10 it y of [place].2.[place] Center - [phone] [facility] 188 [place] 2020-04-23 2020-04-23 Outpatient [facility] [id number] Univers 13:30:00 13:30:00 JOSE baugh [facility] 2020-04-23 2020-04-23 Orders Doctor JOSE 1.2.840.114 [id number] Univers 00:00:00 00:00:00 Only Unassigned, [place] 350.1.13.10 ity of [place] [facility] 4.2.7.2.686 Juan J as [phone] [facility] 009 [place] 2020-04-09 2020-04-09 Office [facility] 1.2.840.114 [id number] Univers 13:58:45 14:13:45 Visit [facility] 350.1.13.10 it y of Dilpi Cancer 4.2.7.2.686 [facility] [phone] Med [address] 2020-04-09 2020-04-09 Outpatient [facility] [id number] Univers 14:00:00 14:00:00 JOSE vashti [facility] 2020-03-27 2020-03-27 Transition Latrice Aleman 1.2.840.114 [id number] Univers 00:00:00 00:00:00 of Care Rico Duque 350.1.13.10 [place] of [place].2.[place] [phone] [facility] 403 [address] 2020-03-15 2020-03-26 Hospital Jameson Mejia 1.2.840.1 14 [id number] Univers 23:48:00 18:02:00 Encounter Kandis Hough 350.1.13.10 ity of [place] [facility] 4.2.7.2.68 6 [place] [phone] [facility] 098 Branch 2020-03-18 2020-03-18 Anesthesia Caio Najera Nancy 1. 2.840.114 [id number] Univers 13:52:00 16:42:00 Stephanie Franks 350.1.13.10 ity of [facility] 4.2.7.2.686 [place] as [phone] [facility] 103 Branch 2020-02-06 2020-02-06 Transition Latrice Aleman 1.2.840.114 [id number] Univers 00:00:00 00:00:00 of Care Rico Zelayay 350.1.13.10 [place] [phone] [facility] 403 [address] 2020-02-03 2020-02-05 [facility] Óscar Hermosillo [facility] 1.2.8 40.114 [id number] Univers 16:55:00 20:40:00 Encounter Martha Rowe 350.1.13.10 ity of [place] 4.2.[place].2.686 [place] [phone] [address] 2020-01-17 2020-01-17 Outpatient [facility] [id number] Univers 13:30:00 13:30:00 SENDIL ity of [facility] 2019-12-02 2019-12-02 Outpatient R [facility] [id number] Univers 15:00:00 15:00:00 ity of [facility] 2019-11-16 2019-11-21 [facility] Lopez Velazquez [facility] 1.2.840 .114 [id number] Univers 16:35:23 14:12:00 Encounter Heather Hermosillo 350.1.13.1 0 ity of [place] 4.2.[place].2.686 [place] [phone] [address] 2019-09-17 2019-09-18 Emergency StarlaFormerly [facility] 1.2.091.333 [id number] Univers 20:30:04 00:41:00 Valery Perez 350.1.13.10 ity of [place] 4.2.7.2.686 [place] [phone] [place] 596[place] 2019-09-17 2019-09-18 Emergency X ALFIE, [facility] ERT [id number] Univers 20:30:04 00:41:00 WAKILI ity [facility] 2019-09-05 2019-09-05 Outpatient R [facility] [id number] Univers 14:00:00 14:00:00 SENDIL ity [facility] 2019-09-05 2019-09-05 Telemedici CastilloNEW [facility]RISE [facility] 1.2.840.114 [id number] Univers 08:17:17 08:47:17 ne Visit Sendil Hannah Perez 350.1.13.10 it[place] of [place] 4[place]2.[place].2.[place] [phone] Nd dic[address] 2019-09-05 2019-09-05 Telephone CastilloNEW [facility]RISE [facility] 1.2.626.070 [id number] Univers 00:00:00 00:00:00 Sendil Hannah Perez 350.1.13.10 [place] of [place].2.[place] [phone] Nd dicnd nal [address] [place] [address] 2019-09-03 2019-09-03 Outpatient R ANNA [facility] [id number] Univers 10:30:00 10:30:00 SENDIL ity [facility] 2019-08-20 2019-08-20 Telephone MartinNEW [facility]RISE [facility] 1.2.394.482 [id number] Univers 00:00:00 00:00:00 Nika SHAW 350.1.13.10 ity of [place].2.[place] [phone] Nd dical 390 [place] 2019-08-19 2019-08-19 Refill Nancy Lee 1.2.840.114 [id number] Univers 00:00:00 00:00:00 Lola Figueroa 350.1.13.10 it y of Hospital 4.2.7.2.686 [place] J as [phone] [facility] 090 [place] 2019-08-16 2019-08-16 Refill Nancy Lee 1.2.840.114 [id number] Univers 00:00:00 00:00:00 Lola Carolina 350.1.13.10 it y of [facility] 4.2.7.2.686 [place] J as [phone] [facility] 090 [address] 2019-08-15 2019-08-15 Emergency Luis, [facility] 1.2.840.114 [id number] Univers 11:58:21 15:28:00 Demarcus Perez 350.1.13.10 i ty of [place] 4[place]2.[place].2.686 [place] [phone] [facility] 084 Branch 2019-08-15 2019-08-15 Emergency X LUIS, [facility] ERT [id number] Univers 11:58:21 15:28:00 DEMARCUS ity [facility] 2019-08-15 2019-08-15 Case AnnaJOSE 1.2.840.114 [id number] Univers 00:00:00 00:00:00 Management Ninfa FIGUEROA 350.1.13.10 ity [facility] 4.2.7.2.686 [place] J as [phone] [facility] 008 Branch 2019-08-15 2019-08-15 Telephone Anna [facility] 1.2.375.495 [id number] Univers 00:00:00 00:00:00 Ninfa Perez 350.1.13.10 [place]2.[place] [facility] [phone] [facility] 059 [facility] 2019-08-12 2019-08-12 Transition Latrice Ramirez 1.2.840.114 [id number] Univers 00:00:00 00:00:00 of Care Joan George 350.1.13.10 it[place] [phone] [facility] 403 [address] 2019-08-06 2019-08-09 Emergency Wayne Can [facility] 1.2.840. 114 [id number] Univers 14:06:47 15:19:00 Lizett Gerardo 350.1.13.10 it[place] of [place] 4[place]2.[place].2.686 [place] [phone] [facility] 081 Branch 2019-08-06 2019-08-09 Outpatient X HUMAIRA, [facility] [id number] Univers 14:06:47 15:19:00 LIZETT ity of [facility] 2019-08-06 2019-08-06 Outpatient R TRAVIS, [facility] [id number] Univers 13:30:00 13:30:00 RICHMOND singhy o f [facility] 2019-08-06 2019-08-06 Outpatient R TRAVIS, [facility] [id number] Univers 11:00:00 11:00:00 RICHMOND singhy o f [facility] 2019-08-06 2019-08-06 Outpatient R TRAVIS, [facility] [id number] Univers 11:00:00 11:00:00 JUNIEJULIANN baugh o [facility] 2019-08-06 2019-08-06 Orders Doctor JOSE 1.2.840.114 [id number] Univers 00:00:00 00:00:00 Only Unassigned, [place] 350.1.13.10 it[place] of [place] [facility] 4.2.7.2.686 Juan J as [phone] [facility] 009 Branch 2019-07-19 2019-07-19 Transition Latrice French 1.2.840.114 [id number] Univers 00:00:00 00:00:00 of Care Gilda Duque 350.1.13.10 it [place] [phone] [facility] 403 [address] 2019-07-17 2019-07-18 Emergency Valery Carrillo S Nancy 1.2.840 .114 [id number] Univers 21:36:10 21:05:00 Kendra [place] 350.1.13.1 0 ity of Hospital 4.2.7.2.686 [place] J as [phone] [facility] 090 Branch 2019-07-17 2019-07-18 Outpatient X SUZANNE[facility] [id number] Univers 21:36:10 21:05:00 NOLA TAREQ ity of [facility] 2019-07-03 2019-07-03 Transition Latrice French 1.2.840.114 [id number] Univers 00:00:00 00:00:00 of Care Gilda Duque 350.1.13.10 it y of [place].2.[place] [id number] [facility] 403 [address] 2019-07-01 2019-07-01 Transition Latrice French 1.2.840.114 [id number] Univers 00:00:00 00:00:00 of Care Gilda Duque 350.1.13.10 it y of [place] 4[place]2.[place].2.[place] [phone] [facility] 403 [address] 2019-06-27 2019-06-27 Transition Latrice French 1.2.840.114 [id number] Univers 00:00:00 00:00:00 of Care Gilda Duque 350.1.13.10 it y of [place] [phone] [facility] 403 [place] 2019-06-24 2019-06-26 [facility] [id number] Univers 14:51:01 18:37:00 MICHAEL ity of [facility] 2019-06-24 2019-06-26 Hospital Janeth Leal 1.2.84 0.114 [id number] Univers 14:51:01 18:37:00 Encounter Michael Shirley 350.1.1 3.10 ity of [facility] 4.2.7.2.686 [place] J as [phone] [facility] 090 Branch 2019-02-06 2019-02-06 Telephone JOSE Bhatt 1.2.840.114 [id number] Univers 00:00:00 00:00:00 Cortney FIGUEROA 350.1.13.10 i ty of [facility] 4.2.7.2.686 [place] J as [phone] [facility] 008 Branch 2019-02-05 2019-02-05 Emergency [facility] 1.2.060.080 [id number] Univers 17:30:29 21:52:00 Jyoti Perez 350.1.13.10 i ty of [place] 4[place]2.[place].2.[place] [phone] [place] 596[place] Branch 2019-01-30 2019-01-30 Transition Latrice Queevdo 1.2.840.114 [id number] Univers 00:00:00 00:00:00 of Care Rhonda Duque 350.1.13.10 it y of [place]2.7.2.[place] [id number] [facility] 403 [address] 2019-01-24 2019-01-29 [facility] Wayne Can 1.2.840.1 14 [id number] Univers 16:01:37 14:55:00 Encounter Dennis Finley 350.1.13.10 ity of [facility] 4.2.7.2.686 [place] J as [phone] [place] 596[place] Branch 2019-01-22 2019-01-22 Transition Claudette Quevedotanya 1.2.840.114 [id number] Univers 00:00:00 00:00:00 of Care Rhonda Duque 350.1.13.10 it y of [place] 4.2.7.2.[place] [id number] [facility] 403 [address] 2019-01-16 2019-01-19 [facility] Carlos Allen 1.2.840.11 [id number] Univers 23:52:03 14:36:00 Encounter Jae Martha Figueroa 350.1.13.10 ity of Most Maliajuanjomargareth Beth Sullivan pital 4.2.7.2.686 [place] [phone] [place] [address] Branch 2017-10-23 2017-10-[address] [facility] [id number] 17:29:00 16:54:00 Inpatient ALEXIS 90 [place] [facility] 2017-04-03 2017-04-04 [id number] 23:17:00 03:53:00 Emergency LAIRD 56 [place] Room [facility] 2017-03-05 2017-03-[address] [facility] [id number] 06:54:00 10:58:00 Inpatient NICHELLE 46 [place] (obs) Patient [facility] 2017-01-04 2017-01-[address] [facility] [id number] 10:33:00 18:56:00 Inpatient 63 [place] sujit ([facility]) [facility] Orders Doctor JOSE 1.2.840.114 [id number] Univers 00:00:00 00:00:00 Only Unassigned, [place] 350.1.13.10 ity of [place] [facility] 4.2.7.2.686 Juan J as [phone] [facility] uriel 009 Branch Results Test Description Test Time Test Comments Results Result Comments Source Transthoracic echo (TTE) 2022-02-10 17:43:07 Test Item Value Reference Range Interpretation Comme nts Height (test code = 5244860096) in Weight (test code = 6290062218) lbs Systolic BP (test code = 5393458922) mmHg Diastolic BP (test code = 1974732160) mmHg Heart Rate (test code = 0787835180) bpm BSA (test code = 3236762411) 1.86 m2 Ao root diam (test code = 3165476197) 3.10 cm Aortic root (test code = 2615484312) 3.1 cm Ao root annulus (test code = 3.1 cm 3361952958) LVOT diameter (test code = 1.83 cm 3442445040) LVOT area (test code = 0160579897) 2.60 cm2 LVIDD (test code = 4544922917) 4.80 cm Left Ventricular End Diastolic Volume 107.5 mL by Teichholz Method (test code = 3670821) IVS (test code = 8972740390) 1.35 cm Interventricular Septum Diastolic 1.35 cm Thickness by 2D (test code = 8356597) LVPWD (test code = 9048106854) 1.35 cm PW (test code = 0771849087) 1.35 cm 0.6-1.1 EF(Teich) (test code = 1595191296) 30.10 % LVIDS (test code = 3426589885) 4.10 cm Left Ventricular End Systolic Volume 75.1 mL by Teichholz Method (test code = 3343935) FS (test code = 9419785543) 14 % EF - 2D (test code = 79272096) 30.10 % LA size (test code = 5705155612) 4.1 cm TR Peak Haile (test code = 6823950319) 232.4 cm/s Triscuspid Valve Regurgitation Peak mmHg Gradient (test code = 2989078857) LAV(MOD-sp4) (test code = 8442089770) 103.10 mL E wave decelartion time (test code = 0.15 s 4178581790) MV stenosis pressure 1/2 time (test 44.6 ms code = 2018313570) MV Peak E Haile (test code = 110.2 cm/s 9146423252) MV Peak A Haile (test code = 28.7 cm/s 5728646793) E/A ratio (test code = 8963928578) ratio MR max PG (test code = 3568441148) 78.70 mm[Hg] MR max haile (test code = 5806841458) 443.40 cm/s Mr max haile (test code = 1305835287) 443.4 m/s MV Prop V (test code = 3896165616) 45.00 cm/s MV E/e' septal (test code = 9.2 cm/s 0928845572) Tapse (test code = 6391800311) 1.53 cm LVOT stroke volume (test code = 41.70 cm3 6421176478) LVOT peak haile (test code = 87.2 cm/s 6015363383) LVOT mn grad (test code = 1232989740) mmHg AV LVOT peak gradient (test code = mmHg 0466320140) LVOT peak VTI (test code = 15.8 cm 2960950224) LV V1 mean (test code = 0180563474) 51.30 cm/s Aortic valve mean velocity (test code 78.3 cm/s = 6329644658) Ao peak haile (test code = 3323087933) 111.8 cm/s Ao VTI (test code = 5894843465) 21.5 cm AV area by cont VTI (test code = 1.9 cm2 4845212591) AV area peak haile (test code = 2.1 cm2 4318255499) Ao max PG (test code = 4316053685) 5.00 mm[Hg] AV peak gradient (test code = mmHg 6826782307) AV valve area (test code = 1.94 cm2 1257628975) AV mean gradient (test code = mmHg 9017467558) Radiology Study observation (narrative) (test code = 71654-1) DIANE (test code = DIANE) Table formatting [...] lateral and apex.All other segments are normal. [facility] [id number] 12:01:08 Test Item Value Reference Interpretation Comments Range TROPONIN I (test 0.021 ng/mL See_Comment [Automated code = 0838449371) message] The system which generated this result [...] biotin. Lab Interpretation Normal (test code = 06249-5) [facility]20[facility] 11:50:23 Test Item Value Reference Range Interpretation Comments MAGNESIUM (test code = 2044115395) 1.7 mg/dL 1.7-2.4 Lab Interpretation (test code = Normal 60811-2) [facility]COMP[facility] METABOLIC PANEL (00828)2022-02-10 11:50:22 Test Item Value Reference Range Interpretation Comments NA (test code = 138 mmol/L 135-145 9956082609) K (test code = 3.9 mmol/L 3.5-5 8574156586) CL (test code = 108 mmol/L 98-108 0660920012) CO2 TOTAL (test code = 24 mmol/L 23-31 5026024639) AGAP (test code = 2-16 3884893746) BUN (test code = 19 mg/dL 7-23 7385709170) GLUCOSE (test code = 117 mg/dL 70-110 H 9259062723) CREATININE (test code = 0.91 mg/dL 0.6-1.25 8101851909) TOTAL BILI (test code = 1.0 mg/dL 0.1-1.0 9720069167) CALCIUM (test code = 8.5 mg/dL 8.6-10.6 L 8667613492) T PROTEIN (test code = 6.4 g/dL 6.3-8.2 1315889144) ALBUMIN (test code = 3.4 g/dL 3.5-5 L 7852913631) ALK PHOS (test code = 177 U/L 34-122 H 4428193597) ALTv (test code = 24 U/L 5-50 1742-6) AST(SGOT) (test code = 38 U/L 13-40 7505038573) eGFR (test code = mL/min/1.73m2 4738516924) DIANE (test code = DIANE) Association of [...] tests). Lab Interpretation Abnormal (test code = 76976-0) [facility]2022-[facility] 11:50:22 Test Item Value Reference Range Interpretation Comments PHOSPHORUS (test code = 4198921658) 5.1 mg/dL 2.5-5 H Lab Interpretation (test code = Abnormal 77128-0) [facility] WITH [id number] 11:19:02 Test Item Value Reference Range Interpretation [...] RDW-SD (test code = 48.0 fL 38.5-51.6 96440-1) RDW-CV (test code = 14.2 % 12.1-15.4 788-0) PLT (test code = See_Comment [Automated 777-3) message] The sy stem which generated this result transmitted reference range : 150 - 328 10*3/ ?L. The reference r batsheva was not used to interpret this result as normal/abnormal . MPV (test code = 10.2 fL 9.8-13 09022-6) NRBC/100 WBC (test See_Comment [Automat ed code = 7526274194) message] The system which generated this result transmitted reference range : 0.0 - 10.0 /100 WBCs. The refer ence range was not u sed to interpret th is result as normal/abnormal . NRBC x10^3 (test code See_Comment [Auto mated = 5152877077) message] The s ystem which generated this result transmitted reference range : 10*3/?L. The reference range was not used to interpret this result as normal/abnormal . GRAN MAT (NEUT) % 68.5 % (test code = 770-8) IMM GRAN % (test code 0.40 % = 8466896352) LYMPH % (test code = 19.0 % 736-9) MONO % (test code = 8.3 % 5905-5) EOS % (test code = 3.4 % 713-8) BASO % (test code = 0.4 % 706-2) GRAN MAT x10^3(ANC) 3.65 10*3/uL 1.99-6.95 (test code = 9463660164) IMM GRAN x10^3 (test 0-0.06 code = 2388313907) LYMPH x10^3 (test code 1.01 10*3/uL 1.09-3.23 L = 731-0) MONO x10^3 (test code 0.44 10*3/uL 0.36-1.02 = 742-7) EOS x10^3 (test code = 0.18 10*3/uL 0.06-0.53 711-2) BASO x10^3 (test code 0.01-0.09 = 704-7) Lab Interpretation Abnormal (test code = 45621-9) [facility] (BNP)2022-01-30 23:33:12 Test Item Value Reference Range Interpretation Comments BNP (test code = 20594-3) 443 pg/mL 0-100 H DIANE (test code = DIANE) Scaffolding Helper ID - ADRY Lab Interpretation (test Abnormal code = 24976-8) [facility]22-[facility]-30 23:33:12 Test Item Value Reference Range Interpretation Comments BNP (test code = 51008-2) 443 pg/mL 0-100 H DIANE (test code = DIANE) [employer]olding Helper ID - ADRY Lab Interpretation (test Abnormal code = 46619-7) [facility]2022-01-30 23:33:12 Test Item Value Reference Range Interpretation Comments BNP (test code = 85707-5) 443 pg/mL 0-100 H DIANE (test code = DIANE) Sc[employer]olding Helper ID - ADRY Lab Interpretation (test Abnormal code = 97668-5) [facility]2022-01-30 23:33:12 Test Item Value Reference Range Interpretation Comments BNP (test code = 88492-6) 443 pg/mL 0-100 H DIANE (test code = DIANE) Sc[employer]olding Helper ID - ADRY Lab Interpretation (test Abnormal code = 19318-0) [facility]2022-01-30 23:33:12 Test Item Value Reference Range Interpretation Comments BNP (test code = 19129-6) 443 pg/mL 0-100 H DIANE (test code = DIANE) Scaffolding Helper ID - ADRY Lab Interpretation (test Abnormal code = 35223-5) [facility]2022-01-30 23:33:12 Test Item Value Reference Range Interpretation Comments BNP (test code = 83023-4) 443 pg/mL 0-100 H DIANE (test code = DIANE) Sc[employer] Helper ID - ADRY Lab Interpretation (test Abnormal code = 66605-5) [facility]2022-01-30 23:33:12 Test Item Value Reference Range Interpretation Comments BNP (test code = 12732-6) 443 pg/mL 0-100 H DIANE (test code = DIANE) Scaffolding Helper ID - ADRY Lab Interpretation (test Abnormal code = 00518-7) [facility]2022-01-30 23:33:12 Test Item Value Reference Range Interpretation Comments BNP (test code = 75243-7) 443 pg/mL 0-100 H DIANE (test code = DIANE) Sc[employer]olding Helper ID - ADRY Lab Interpretation (test Abnormal code = 83642-2) [facility]2022-01-30 23:33:12 Test Item Value Reference Range Interpretation Comments BNP (test code = 51079-4) 443 pg/mL 0-100 H DIANE (test code = DIANE) Sc[employer]olding Helper ID - ADRY Lab Interpretation (test Abnormal code = 36019-3) [facility]2022-01-30 23:33:12 Test Item Value Reference Range Interpretation Comments BNP (test code = 30324-7) 443 pg/mL 0-100 H DIANE (test code = DIANE) Scaffolding Helper ID - ADRY Lab Interpretation (test Abnormal code = 62882-4) [facility]2022-01-30 23:33:12 Test Item Value Reference Range Interpretation Comments BNP (test code = 43539-1) 443 pg/mL 0-100 H DIANE (test code = DIANE) Scaffolding Helper ID - ADRY Lab Interpretation (test Abnormal code = 29928-5) [facility]2022-01-30 23:33:12 Test Item Value Reference Range Interpretation Comments BNP (test code = 54204-1) 443 pg/mL 0-100 H DIANE (test code = DIANE) Scaffolding Helper ID - ADRY Lab Interpretation (test Abnormal code = 58681-9) [facility]2022-01-30 23:33:12 Test Item Value Reference Range Interpretation Comments BNP (test code = 38948-4) 443 pg/mL 0-100 H DIANE (test code = DIANE) Sc[employer]olding Helper ID - ADRY Lab Interpretation (test Abnormal code = 60295-9) [facility]2022-01-30 23:33:12 Test Item Value Reference Range Interpretation Comments BNP (test code = 63740-8) 443 pg/mL 0-100 H DIANE (test code = DIANE) Scaffolding Helper ID - ADRY Lab Interpretation (test Abnormal code = 36210-1) [facility] (BNP)2022-01-30 23:33:12 Test Item Value Reference Range Interpretation Comments B-TYPE NATRIURETIC PEPTIDE (BEAKER) 443 pg/mL 0-100 H (test code = 700) Scaffolding Helper ID - [facility] [id number] 20:57:59 Test Item Value Reference Interpretation Comments Range TROPONIN I (test 0.017 ng/mL See_Comment [Automated code = 0083347582) message] The system which generated this result [...] biotin. Lab Interpretation Normal (test code = 55605-4) [facility] HospitalN-[facility]MINAL [id number] 20:54:59 Test Item Value Reference Range Interpretation Comments NT-proBNP (test code 6490 pg/mL See_Comment H [Autom ated = 2546672423) message] The system which generated this result transmitted reference range : <=125. The reference range was not used to interpret this result as normal/abnormal . DIANE (test code = DIANE) Biotin has been reported to cause a negative bias, interpret results relative to patient's use of biotin. Lab Interpretation Abnormal (test code = 44944-6) [facility]2022-[facility]-21 20:46:35 Test Item Value Reference Range Interpretation Comments MAGNESIUM (test code = 2877648217) 1.5 mg/dL 1.7-2.4 L Lab Interpretation (test code = Abnormal 13115-3) [facility] MET[facility]OLIC PANEL (96543)2021-11-09 20:46:34 Test Item Value Reference Range Interpretation Comments NA (test code = 140 mmol/L 135-145 5549608313) K (test code = 3.9 mmol/L 3.5-5.0 6449137645) CL (test code = 111 mmol/L 98-108 H 1688765357) CO2 TOTAL (test code = 16 mmol/L 23-31 L 9417435267) AGAP (test code = 2-16 5309990762) BUN (test code = 14 mg/dL 7-23 1197740948) GLUCOSE (test code = 189 mg/dL 70-110 H 5587548884) CREATININE (test code = 0.66 mg/dL 0.60-1.25 2719095887) TOTAL BILI (test code = 0.8 mg/dL 0.1-1.0 5170962879) CALCIUM (test code = 8.3 mg/dL 8.6-10.6 L 9621379688) T PROTEIN (test code = 6.5 g/dL 6.3-8.2 3325239167) ALBUMIN (test code = 3.3 g/dL 3.5-5.0 L 0236486348) ALK PHOS (test code = 136 U/L 34-122 H 4383138529) ALTv (test code = 18 U/L 5-50 1742-6) AST(SGOT) (test code = 26 U/L 13-40 8050097651) eGFR (test code = mL/min/1.73m2 8658840889) DIANE (test code = DIANE) Association of [...] tests). Lab Interpretation Abnormal (test code = 40090-0) [facility] WITH [id number] 20:33:30 Test Item Value Reference Range Interpretation [...] RDW-SD (test code = 45.4 fL 38.5-51.6 74455-1) RDW-CV (test code = 14.2 % 12.1-15.4 788-0) PLT (test code = See_Comment [Automated 777-3) message] The sy stem which generated this result transmitted reference range : 150 - 328 10*3/ ?L. The reference r batsheva was not used to interpret this result as normal/abnormal . MPV (test code = 9.8 fL 9.8-13.0 98611-7) NRBC/100 WBC (test See_Comment [Automat ed code = 0003062326) message] The system which generated this result transmitted reference range : 0.0 - 10.0 /100 WBCs. The refer ence range was not u sed to interpret th is result as normal/abnormal . NRBC x10^3 (test code <0.01 See_Comment [Auto mated = 6131299159) message] The s ystem which generated this result transmitted reference range : 10*3/?L. The reference range was not used to interpret this result as normal/abnormal . GRAN MAT (NEUT) % 62.3 % (test code = 770-8) IMM GRAN % (test code 0.80 % = 1519270026) LYMPH % (test code = 25.1 % 736-9) MONO % (test code = 6.7 % 5905-5) EOS % (test code = 4.7 % 713-8) BASO % (test code = 0.4 % 706-2) GRAN MAT x10^3(ANC) 4.76 10*3/uL 1.99-6.95 (test code = 8474892314) IMM GRAN x10^3 (test 0.06 10*3/uL 0.00-0.06 code = 0542265997) LYMPH x10^3 (test code 1.92 10*3/uL 1.09-3.23 = 731-0) MONO x10^3 (test code 0.51 10*3/uL 0.36-1.02 = 742-7) EOS x10^3 (test code = 0.36 10*3/uL 0.06-0.53 711-2) BASO x10^3 (test code 0.03 10*3/uL 0.01-0.09 = 704-7) Lab Interpretation Abnormal (test code = 42880-6) [facility]PO[facility] (AUTOMATED)2021-11-09 20:27:39 Test Item Value Reference Range Interpretation Comments POCT GLU (test code = 9292826335) 190 mg/dL 70-110 H Lab Interpretation (test code = Abnormal 13924-1) [facility] [id number] 11:52:00 Test Item Value Reference Range Interpretation Comments GLUCOSE BEDSIDE TESTING (test code = 92 mg/dL 70-110 N GLUBED) GLUCOSE BEDSIDE [id number] 08:05:00 Test Item Value Reference Range Interpretation Comments GLUCOSE BEDSIDE TESTING (test code = 62 mg/dL 70-110 L GLUBED) GLUCOSE BEDSIDE [id number] 20:40:00 Test Item Value Reference Range Interpretation Comments GLUCOSE BEDSIDE TESTING (test code 105 mg/dL 70-110 N = GLUBED) GLUCOSE BEDSIDE [id number] 17:02:00 Test Item Value Reference Range Interpretation Comments GLUCOSE BEDSIDE TESTING (test code 128 mg/dL 70-110 H = GLUBED) GLUCOSE BEDSIDE [id number] 16:37:00 Test Item Value Reference Range Interpretation Comments GLUCOSE BEDSIDE TESTING (test code 105 mg/dL 70-110 N = GLUBED) GLUCOSE BEDSIDE [id number] 08:17:00 Test Item Value Reference Range Interpretation Comments GLUCOSE BEDSIDE TESTING (test code = 88 mg/dL 70-110 N GLUBED) GLUCOSE BEDSIDE [id number] 19:45:00 Test Item Value Reference Range Interpretation Comments GLUCOSE BEDSIDE TESTING (test code 115 mg/dL 70-110 H = GLUBED) GLUCOSE BEDSIDE [id number] 18:13:00 Test Item Value Reference Range Interpretation Comments GLUCOSE BEDSIDE TESTING (test code = 74 mg/dL 70-110 N GLUBED) GLUCOSE BEDSIDE [id number] 17:29:00 Test Item Value Reference Range Interpretation Comments GLUCOSE BEDSIDE TESTING (test code = 44 mg/dL 70-110 LL GLUBED) GLUCOSE BEDSIDE [id number] 12:26:00 Test Item Value Reference Range Interpretation Comments GLUCOSE BEDSIDE TESTING (test code = 96 mg/dL 70-110 N GLUBED) GLUCOSE BEDSIDE [id number] 08:21:00 Test Item Value Reference Range Interpretation Comments GLUCOSE BEDSIDE TESTING (test code = 77 mg/dL 70-110 N GLUBED) GLUCOSE BEDSIDE [id number] 20:12:00 Test Item Value Reference Range Interpretation Comments GLUCOSE BEDSIDE TESTING (test code = 91 mg/dL 70-110 N GLUBED) GLUCOSE BEDSIDE [id number] 16:42:00 Test Item Value Reference Range Interpretation Comments GLUCOSE BEDSIDE TESTING (test code 106 mg/dL 70-110 N = GLUBED) GLUCOSE BEDSIDE [id number] 11:49:00 Test Item Value Reference Range Interpretation Comments GLUCOSE BEDSIDE TESTING (test code = 89 mg/dL 70-110 N GLUBED) GLUCOSE BEDSIDE [id number] 08:22:00 Test Item Value Reference Range Interpretation Comments GLUCOSE BEDSIDE TESTING (test code = 68 mg/dL 70-110 L GLUBED) GLUCOSE BEDSIDE [id number] 20:05:00 Test Item Value Reference Range Interpretation Comments GLUCOSE BEDSIDE TESTING (test code 137 mg/dL 70-110 H = GLUBED) GLUCOSE BEDSIDE [id number] 16:42:00 Test Item Value Reference Range Interpretation Comments GLUCOSE BEDSIDE TESTING (test code = 98 mg/dL 70-110 N GLUBED) GLUCOSE BEDSIDE [id number] 11:13:00 Test Item Value Reference Range Interpretation Comments GLUCOSE BEDSIDE TESTING (test code 118 mg/dL 70-110 H = GLUBED) GLUCOSE BEDSIDE [id number] 07:37:00 Test Item Value Reference Range Interpretation Comments GLUCOSE BEDSIDE TESTING (test code 140 mg/dL 70-110 H = GLUBED) COMPREHENSIVE METABOLIC [id number] 06:34:00 Test Item Value Reference Range Interpretation [...] TOTAL (test code = ALKP) CBC W/AUTO [id number] 06:25:00 Test Item Value Reference Range Interpretation [...] DIFF/SCN CRITERIA = MDIFF) - CT ABDOMEN W/[id number] 03:09:00 [facility] 1960 Sex: M Name: FAITH VANCE [facility] : 1960 Age/S: 60 / M [address] [address] [address] Unit #: [id number] Loc: [place] [address] Phys: Fede Carrera DO Acct: [id number] Dis Date: Status: ADM IN PHONE #: [phone] Exam Date: 10/31/20201919 FAX #: Reason: NAUSEA, VOMITING, DIARRHEA EXAMS: CPT: [id number] CT ABDOMEN W/CONTRAST 23312 EXAM: - CT ABDOMEN W/CONTRAST LOCATION: H61 [...] [facility] Center[facility]: 1960 Age/S: 60 / M [address] [address] [place] Unit #: [id number] Loc: [place] [address] Phys: Fede Carrera DO Acct: [id number] Dis Date: Status: ADM IN PHONE #: [phone] Exam Date: 10/31/20201919 FAX #: Reason: NAUSEA, VOMITING, DIARRHEA EXAMS: CPT: [id number] CT ABDOMEN W/CONTRAST 95637 <Continued> small bowel wall thickening. The appendix [...] (0309) [email or web address] Orig Print D/T: S: 11/01/2020 (311) PAGE 2 Signed ReportGLUCOSE BEDSIDE [id number] 21:34:00 Test Item Value Reference Range Interpretation Comments GLUCOSE BEDSIDE TESTING (test code 161 mg/dL 70-110 H = GLUBED) GLUCOSE BEDSIDE [id number] 17:32:00 Test Item Value Reference Range Interpretation Comments GLUCOSE BEDSIDE TESTING (test code 136 mg/dL 70-110 H = GLUBED) - XR ABDOMEN 1 [id number] 12:44:00 [facility] 1960 Sex: M Name: FAITH VANCE [facility] : 1960 Age/S: 60 / M [address] [address] [place] [address] Unit #: [id number] Loc: [place] [address] Phys: Fede Carrera Acct: [id number] Dis Date: Status: ADM IN PHONE #:[phone] Exam Date: 10/31/2020 1227 FAX #: Reason: Abdominal pain in the lower qudarants EXAMS:CPT: [id number] XR ABDOMEN 1 V 95032 Fluoro Time: DAP (Gy m2): Air Kerma [...] few small bowel loops. Overall nonspecific appearance. il3005 Reported and signed by: Ananth Schmidt M.D. CC: Nika Martin MD; Fede Carrera DO PAGE 1 Signed Report Name: FAITH VANCE : 1960 Age/S: 60 / M [address] [address] Unit #: [id number] Loc: [place] [address] Phys: DoraFede jones DO Acct: [id number] Dis Date:Status: ADM IN PHONE #: [phone] Exam Date: 10/31/2020 1227 FAX #: Reason: Abdominal pain in thelower qudarants EXAMS: CPT: [id number] XR ABDOMEN 1 V 61756 Fluoro Time: DAP (Gy m2): Air Kerma (mGy): <Continued> Technologist: Cecelia Arias RT(R) Trnscb Date/Time: 10/31/2020 (2958) tMATTRHortensiaAGV Orig Print D/T: S: 10/31/2020 (9125) PAGE 2 Signed Report GLUCOSE BEDSIDE [id number] 11:58:00 Test Item Value Reference Range Interpretation Comments GLUCOSE BEDSIDE TESTING (test code 105 mg/dL 70-110 N = GLUBED) GLUCOSE BEDSIDE [id number] 08:01:00 Test Item Value Reference Range Interpretation Comments GLUCOSE BEDSIDE TESTING (test code 106 mg/dL 70-110 N = GLUBED) [id number] 22:46:00 Test Item Value Reference Range Interpretation [...] yby method. Completed by Nursing: NOGLUCOSE BEDSIDE [id number] 21:55:00 Test Item Value Reference Range Interpretation Comments GLUCOSE BEDSIDE TESTING (test code 119 mg/dL 70-110 H = GLUBED) [id number] 19:33:00 Test Item Value Reference Range Interpretation [...] method. Completed by Nursing: NOCoronavirus 2019 nCoV [id number] 18:46:00 Test Item Value Reference Range Interpretation Comments Coronavirus 2019 nCoV Negative Negative Per arnie west, Bedside (test code = negativ e results should [id number]) be treated aspresumptive a nd, if inconsistent [...] with COVID-19. Spec Comments: NNT PRO-BRAIN NATRIURETIC [id number] 15:51:00 Test Item Value Reference Range Interpretation Comments NT PRO-BRAIN NATRIURETIC PEPTI 6079 PG/ML 0-100 H (test code = PROBNP) Completed by Nursing: [id number] 15:51:00 Test Item Value Reference Range Interpretation [...] yby method. Completed by Nursing: NOBASIC METABOLIC [id number] 15:51:00 Test Item Value Reference Range Interpretation [...] Completed by Nursing: NO- XR CHEST 1 [id number] 15:42:00 [facility] : 1960 Sex: M Name: FAITH VANCE [facility] : 1960 Age/S: 60 / M [address] [address] [place] [address] Unit #: [id number] Loc: [place] [address] Phys: oTdd Jacobo MD Acct: [id number] Dis Date: Status: PRE ER PHONE #:[phone] Exam Date: 10/30/2020 1522 FAX #: Reason: chest pain EXAMS: CPT: [id number] XR CHEST 1 S03422 Fluoro Time: DAP (Gy m2): Air Kerma [...] PAGE 1 Signed Report Name: FAITH VANCE [facility] : 1960 Age/S: 60 / M [address] [address] [place] [address] Unit #: [id number] Loc: [place] [address] Phys: Todd Jacobo MD Acct: [id number] DisDate: Status: PRE ER PHONE #: [phone] Exam Date: 10/30/2020 1529 FAX #: Reason: chest pain EXAMS: CPT: [id number] XR CHEST 1 V 01397 Fluoro Time: DAP (Gy m2): Air Kerma (mGy): <Continued> Technologist: Kim Andrews RT(R)(CT) Trnscb Date/Time: 10/30/2020 (5082) t.KATHRYNR.RB24 Orig Print D/T: S: 10/30/2020 (6320) PAGE 2 Signed ReportCBC W/O [id number] 15:31:00 Test Item Value Reference Range Interpretation [...] 9.70 fL 7.0-9.6 H MPV) BASIC METABOLIC [id number] 21:42:00 Test Item Value Reference Range Interpretation [...] 9.6 mg/dL 8.0-10.5 N CA) HEPATIC FUNCTION [id number] 21:42:00 Test Item Value Reference Range Interpretation [...] 114 IUnit/L 20-125 N code = ALKP) [id number] 21:42:00 Test Item Value Reference Range Interpretation Comments LIPASE (test code = LIP) 70 U/L 13-57 H [id number] 21:42:00 Test Item Value Reference Range Interpretation [...] by method. UA RFLX MICR CULT IF [id number] 21:37:00 Test Item Value Reference Range Interpretation [...] INDWELLING CATH (CEDENO)Cath Status: Under 72 hoursPROTHROMBIN [id number] 21:35:00 Test Item Value Reference Range Interpretation [...] (to prevent recurrent infar ct). THROMBOPLASTIN TIME [id number] 21:35:00 Test Item Value Reference Range Interpretation Comments THROMBOPLASTIN TIME 41.7 Seconds 25.0-39.5 H Therape utic Range: PARTIAL (test code = 50.4 - 88.3 Seconds PTT) Effective 09/04/2018 CBC W/AUTO [id number] 21:29:00 Test Item Value Reference Range Interpretation [...] = MDIFF) - CT ABD PELVIS W/O [id number] 20:49:00 [facility]: FAITH VANCE : 1960 Sex: M Name: FAITH VANCE [facility] Mejia : 1960 Age/S: 60 / M [address] [place] [address] Blvd Unit #: [id number] Loc: [place] [address] Phys: Gisel Eugene LOAD MIXER Acct: [id number] Dis Date: Status: REG ER PHONE #: [phone] Exam Date: 08/23/20202024 FAX #: [phone] Reason: DIFFUSE ABDOMINAL PAIN EXAMS: CPT CODE: [id number] CT ABD PELVIS W/O CONT 58870 Clinical indication: Diffuse abdominal pain. Contrast - [...] 1 Signed Report (CONTINUED) Name: [facility] : 1960 Age/S: 60 / M [address] [place] [address] Unit #: [id number] Loc: [place] [address] Phys: Gisel Eugene Acct: [id number] Dis Date: Status: REG ER PHONE #: [phone] Exam Date: 08/23/20202024 FAX #: [phone] Reason: DIFFUSE ABDOMINAL PAIN EXAMS: CPT CODE: [id number] CT ABD PELVIS W/O CONT 23807 <Continued> Peritoneum/Other: No extraluminal air. No extraluminal [...] DO; Nika mccarthy MD; Gisel Eugene Technologist:Cassandra Anne RT(R)(CT) CTDI: DLP: Trnscb Date/Time: 08/23/2020 (2048) [id number] Orig Print D/T: S: 08/23/2020 (2051) PAGE 2 Signed [id number] 16:58:00 Test Item Value Reference Range Interpretation Comments GLUBED (test code = 159 MG/DL 70-110 H Performe d by certified GLUBED) traffic control operator at [facility] [id number] 11:58:00 Test Item Value Reference Range Interpretation Comments GLUBED (test code = 149 MG/DL 70-110 H Performe d by certified GLUBED) traffic control operator at [facility] BASIC METABOLIC [id number] 08:00:00 Test Item Value Reference Range Interpretation [...] 9.9 mg/dL 8.0-10.5 N CA) CBC W/AUTO [id number] 07:08:00 Test Item Value Reference Range Interpretation [...] DIFF REQUIRED (test code NO = MDIFF) [id number] 05:21:00 Test Item Value Reference Range Interpretation Comments GLUBED (test code = 150 MG/DL 70-110 H Performe d by certified GLUBED) traffic control operator at [facility] [id number] 21:13:00 Test Item Value Reference Range Interpretation Comments GLUBED (test code = 129 MG/DL 70-110 H Performe d by certified GLUBED) traffic control operator at [facility] [id number] 16:48:00 Test Item Value Reference Range Interpretation Comments GLUBED (test code = 116 MG/DL 70-110 H Performe d by certified GLUBED) traffic control operator at [facility] [id number] 12:18:00 Test Item Value Reference Range Interpretation Comments GLUBED (test code = 136 MG/DL 70-110 H Performe d by certified GLUBED) traffic control operator at [facility] [id number] 12:18:00 Test Item Value Reference Range Interpretation Comments GLUBED (test code = 151 MG/DL 70-110 H Performe d by certified GLUBED) traffic control operator at [facility] CBC W/AUTO [id number] 07:32:00 Test Item Value Reference Range Interpretation [...] (test code NO = MDIFF) BASIC METABOLIC [id number] 07:29:00 Test Item Value Reference Range Interpretation [...] code = 9.0 mg/dL 8.0-10.5 N CA) [id number] 05:19:00 Test Item Value Reference Range Interpretation Comments GLUBED (test code = 135 MG/DL 70-110 H Performe d by certified GLUBED) traffic control operator at [facility] [id number] 20:31:00 Test Item Value Reference Range Interpretation Comments GLUBED (test code = 189 MG/DL 70-110 H Performe d by certified GLUBED) traffic control operator at [facility] [id number] 17:41:00 Test Item Value Reference Range Interpretation Comments GLUBED (test code = 140 MG/DL 70-110 H Performe d by certified GLUBED) traffic control operator at [facility] - CTA CHEST FOR [id number] 13:48:00 [facility] 1960 Sex: M [facility] : 1960 Age/S: 60 / [place] [address] [place] [address] Unit #: [id number] Loc: [place] [address] Phys: Gina Gonzalez DRIVABILITY TECHNICIAN Acct: [id number] Dis Date: Status: ADM IN PHONE #: [phone] Exam Date: 08/12/2020911 FAX #: [phone] Reason: CP, elevated D-dimerEXAMS: CPT CODE: [id number] [place] [address] PROCEDURE: CTA CHEST INDICATION: CP, elevated D-dimer; [...] pulmonary arteries demonstrate normal enhancement. Motion limited surveyof subsegmental branches. No discrete intraluminal filling defects [...] 1 Signed Report (CONTINUED) Name: [facility] : 1960 Age/S: 60 / M [address] [place] [address] Blvd Unit #: [id number] Loc: [place] [address] Phys: Gina Gonzalez NP Acct: [id number] Dis Date: Status: ADM IN PHONE #: [phone] Exam Date: 08/12/2020 0912 FAX #: [phone] Reason: CP, elevated D-dimer EXAMS: CPT CODE: [id number] [place] [address] <Continued> contrast enhancement. No acute abnormality demonstrated. MUSCULOSKELETAL: Healed median sternotomy. No acute skeletal abnormality. IMPRESSION: 1. Negative for pulmonary embolic disease within limitations noted. 2. Atherosclerosis. 3. Coronary arterial calcifications with prior coronary arterial stents and CABG. 4. Interstitial edema. No consolidation. 5. Small bilateral pleural effusions. SL: [id number] at 1348 Reported and signed by: Christiano Piña M.D. CC: Johnie Montanez MD; Gina Gonzalez DRIVABILITY TECHNICIAN; Nika Martin MD Rosa hnologist:RT Jazmine(R)(CT) CTDI: DLP: Trnscb Date/Time: 08/12/2020 (6652) t.SDR.KWL Orig Print D/T: S: 08/12/2020 (1734) PAGE 2 Signed Report [id number] 11:38:00 Test Item Value Reference Range Interpretation Comments GLUBED (test code = 146 MG/DL 70-110 H Performe d by certified GLUBED) traffic control operator at [facility] CBC W/AUTO [id number] 09:17:00 Test Item Value Reference Range Interpretation [...] (test code NO = MDIFF) BASIC METABOLIC [id number] 08:28:00 Test Item Value Reference Range Interpretation [...] code = 8.3 mg/dL 8.0-10.5 N CA) [id number] 08:28:00 Test Item Value Reference Range Interpretation Comments PHOSPHOROUS (test code = PHOS) 3.6 MG/DL 2.5-4.9 N [id number] 08:28:00 Test Item Value Reference Range Interpretation Comments MAGNESIUM (test code = MAG) 1.94 mg/dL 1.80-2.40 N [id number] 07:16:00 Test Item Value Reference Range Interpretation Comments GLUBED (test code = 170 MG/DL 70-110 H Performe d by certified GLUBED) traffic control operator at [facility] [id number] 07:16:00 Test Item Value Reference Range Interpretation Comments GLUBED (test code = 137 MG/DL 70-110 H Performe d by certified GLUBED) traffic control operator at [facility] [id number] 17:01:00 Test Item Value Reference Range Interpretation Comments GLUBED (test code = 88 MG/DL 70-110 N Performe d by certified GLUBED) traffic control operator at [facility] [id number] 16:56:00 Test Item Value Reference Range Interpretation Comments ACT-ISTAT (test code 186 SEC 74-137 H Perform ed by certified = ACTI) traffic control operator at [facility] [id number] 15:03:00 Test Item Value Reference Range Interpretation Comments ACT-ISTAT (test code 235 SEC 74-137 H Perform ed by certified = ACTI) traffic control operator at [facility] [id number] 11:33:00 Test Item Value Reference Range Interpretation Comments GLUBED (test code = 97 MG/DL 70-110 N Performe d by certified GLUBED) traffic control operator at [facility] [id number] 06:54:00 Test Item Value Reference Range Interpretation Comments GLUBED (test code = 136 MG/DL 70-110 H Performe d by certified GLUBED) traffic control operator at [facility] BASIC METABOLIC [id number] 06:00:00 Test Item Value Reference Range Interpretation [...] COMMENTS: To be done morning of Heart [id number] 06:00:00 Test Item Value Reference Range Interpretation Comments PHOSPHOROUS (test code = PHOS) 4.1 MG/DL 2.5-4.9 N COMMENTS: To be done morning of Heart [id number] 06:00:00 Test Item Value Reference Range Interpretation Comments MAGNESIUM (test code = MAG) 1.74 mg/dL 1.80-2.40 L COMMENTS: To be done morning of Heart CathTHROMBOPLASTIN TIME [id number] 05:55:00 Test Item Value Reference Range Interpretation Comments THROMBOPLASTIN TIME 37.9 Seconds 25.0-39.5 N Therape utic Range: PARTIAL (test code = 50.4 - 88.3 Seconds PTT) Effective 09/04/2018 CBC W/AUTO [id number] 05:44:00 Test Item Value Reference Range Interpretation [...] COMMENTS: To be done morning of Heart [id number] 05:44:00 Test Item Value Reference Range Interpretation Comments GLUBED (test code = 92 MG/DL 70-110 N Performe d by certified GLUBED) traffic control operator at [facility] [id number] 17:22:00 Test Item Value Reference Range Interpretation Comments HGBA1C% (test code = HGBA1C%) 6.6 %A1C 4.8-6.0 H [id number] 17:17:00 Test Item Value Reference Range Interpretation Comments GLUBED (test code = 118 MG/DL 70-110 H Performe d by certified GLUBED) traffic control operator at [facility] TSH REFLEX TO [id number] 15:37:00 Test Item Value Reference Range Interpretation Comments TSH REFLEX TO FT4 (test code = 3.19 IU/mL 0.42-5.47 N TSHREFLEX) [id number] 15:37:00 Test Item Value Reference Range Interpretation [...] y by method. COVID 19 Asymptomatic IH [id number] 11:35:00 Test Item Value Reference Range Interpretation [...] y tests. COMMENTS: If not done this [id number] 11:31:00 Test Item Value Reference Range Interpretation [...] titative results may babak y by method. [id number] 11:28:00 Test Item Value Reference Range Interpretation [...] to interpret this result as normal/abnormal . [id number] 10:48:00 Test Item Value Reference Range Interpretation Comments GLUBED (test code = 158 MG/DL 70-110 H Performe d by certified GLUBED) traffic control operator at [facility] B-TYPE NATRIURETIC [id number] 08:19:00 Test Item Value Reference Range Interpretation Comments B-TYPE NATRIURETIC PEPTIDE (test 508.0 PG/ML 0-100 H code = BNP) BASIC METABOLIC [id number] 08:11:00 Test Item Value Reference Range Interpretation [...] 9.1 mg/dL 8.0-10.5 N CA) HEPATIC FUNCTION [id number] 08:11:00 Test Item Value Reference Range Interpretation [...] 174 IUnit/L 20-125 H code = ALKP) [id number] 08:11:00 Test Item Value Reference Range Interpretation Comments MAGNESIUM (test code = MAG) 1.80 mg/dL 1.80-2.40 N [id number] 08:11:00 Test Item Value Reference Range Interpretation [...] may babak y by method. BASIC METABOLIC [id number] 08:09:00 Test Item Value Reference Range Interpretation [...] code = CA) mg/dL 8.0-10.5 HEPATIC FUNCTION [id number] 08:09:00 Test Item Value Reference Range Interpretation Comments TOTAL PROTEIN (test code = PROT) g/dL 6.4-8.2 ALBUMIN (test code = ALB) g/dL 3.4-5.0 BILIRUBIN TOTAL (test code = BILT) mg/dL 0.0-1.0 BILIRUBIN DIRECT (test code = BILD) MG/DL 0.0-0.30 SGOT/AST (test code = AST) IUnit/L 15-37 SGPT/ALT (test code = ALT) IUnit/L 30-65 ALKALINE PHOSPHATASE TOTAL (test IUnit/L 20-125 code = ALKP) [id number] 08:09:00 Test Item Value Reference Range Interpretation Comments MAGNESIUM (test code = MAG) mg/dL 1.80-2.40 [id number] 08:09:00 Test Item Value Reference Range Interpretation [...] results may babak y by method. PROTHROMBIN [id number] 08:06:00 Test Item Value Reference Range Interpretation [...] (to prevent recurrent infar ct). THROMBOPLASTIN TIME [id number] 08:06:00 Test Item Value Reference Range Interpretation Comments THROMBOPLASTIN TIME 44.5 Seconds 25.0-39.5 H Therape utic Range: PARTIAL (test code = 50.4 - 88.3 Seconds PTT) Effective 09/04/2018 CBC W/AUTO [id number] 07:58:00 Test Item Value Reference Range Interpretation [...] NO = MDIFF) - XR CHEST 1 [id number] 07:57:00 [facility] : 1960 Sex: M FAX: Todd Jacobo MD [phone] [place]: St: REG FAX: Sriram Dashchrismargareth YAYA [phone] Name: FAITH V[facility] Teressa : 1960 Age/S: 60/M [address] [place] [address] Unit #: [id number] Loc: [place] [address] Phys: Martínez Dash NP Acct: [id number] Dis Date: Status: REG ER PHONE #: [phone] Exam Date: 08/10/2020752 FAX #: [phone] Reason: Chest Pain EXAMS: CPT CODE: [id number] XR CHEST 1 V 00823 Chest single view 08/10/2020 HISTORY: Chest pain. Comparison is made to 05/21/2018 FINDINGS: Pacemaker and midline sternotomy wires are stable. The lungs are hypoinflated. No consolidation or pleural effusion is present. No vascular congestion or interstitial edema is present. Heart size is mildly enlarged. Aorta is unchanged. IMPRESSION: Hypoinflated lungs. No acute cardiopulmonary process. SL: [id number] at 0757 Reported and signed by: Khai Kruse M.D. CC: Todd Jacobo MD; Martínez Dash NP Technologist: RT Ann(R) Trnscrd Date/Time/By: 08/10/2020 (0757) : By: [email or web address] Orig Print D/T: S: 08/10/2020 (0800) PAGE 1 Signed Report COMPREHENSIVE METABOLIC [id number] 18:02:00 Test Item Value Reference Range Interpretation [...] 50-136 H TOTAL (test code = ALKP) [id number] 18:02:00 Test Item Value Reference Range Interpretation Comments AMYLASE (test code = SERGIO) 82 Unit/L 25-115 N [id number] 18:02:00 Test Item Value Reference Range Interpretation Comments LIPASE (test code = LIP) 185 Unit/L 114-286 N COMPREHENSIVE METABOLIC [id number] 17:56:00 Test Item Value Reference Range Interpretation [...] TOTAL Unit/L 50-136 (test code = ALKP) [id number] 17:56:00 Test Item Value Reference Range Interpretation Comments AMYLASE (test code = SERGIO) Unit/L 25-115 [id number] 17:56:00 Test Item Value Reference Range Interpretation Comments LIPASE (test code = LIP) 185 Unit/L 114-286 N CBC W/AUTO [id number] 17:46:00 Test Item Value Reference Range Interpretation [...] CRITERIA MDIFF) - CT ABD PELVIS W/O [id number] 17:46:00 Name: FAITH V[facility] : 1960 Age/S: 58 / M [address] [place] Unit #: [id number] Loc: [place] [address] Phys: Nila Chester MD Acct: [id number] Dis Date: Status: REG ER PHONE #: [phone] Exam Date: 01/03/2019 6417 FAX #: Reason: llq EXAMS: CPT: [id number] CT ABD PELVIS W/O CONT 79133 Location of dictation: B2 CT abdomen and [...] VANCE : 1960 Age/S: 58 / M [address] [facility] [place] Unit #: [id number] Loc: [place] [address] Phys: Nila Chester MD Acct: [id number] Dis Date: Status: REG ER PHONE #: [phone] Exam Date: 01/03/2019 173 FAX #: Reason: llq EXAMS: CPT: [id number] CT ABD PELVIS W/O CONT 60534 <Continued> at 1746 Reported and signed by: Renuka Willett M.D. CC: Nila Chester MD Technologist:Tavon Jurado, RT(R)(CT)(MRI) CTDI: DLP: Trnscb Date/Time: 01/03/2019 (1746) t.SDR.PXC Orig Print D/T: S: 01/03/2019 (3376) PAGE 2 Signed ReportBedside [id number] 11:47:00 Test Item Value Reference Range Interpretation Comments Bedside Glucose (test code = 23433-3) 155 70-120 H Meter ID: [id number] [facility] – Centralodium [id number] 08:31:00 Test Item Value Reference Range Interpretation Comments Sodium Level (test code = 2951-2) 139 136-145 [facility]en[facility]assium [id number] 08:31:00 Test Item Value Reference Range Interpretation Comments Potassium Level (test code = 2823-3) 4.0 3.5-5.1 [facility]enChloride [id number] 08:31:00 Test Item Value Reference Range Interpretation Comments Chloride Level (test code = 2075-0) 106 98-107 [facility] HarlingenCarbon Dioxide [id number] 08:31:00 Test Item Value Reference Range Interpretation Comments Carbon Dioxide Level (test code = 2027-9) [facility] HarlingenAnion [id number] 08:31:00 Test Item Value Reference Range Interpretation Comments Anion Gap (test code = 17566-7) 12.0 8-16 [facility] HarlingenBlood Urea Mkewburt1385-82-63 08:31:00 Test Item Value Reference Range Interpretation Comments Blood Urea Nitrogen (test code = 12-14 3094-0) [facility] HarlingenCreatinine2018-06-08 08:31:00 Test Item Value Reference Range Interpretation Comments Creatinine (test code = 2160-0) 0.72 0.72-1.25 [facility]lingenBUN/Creatinine Bznee8932-47-15 08:31:00 Test Item Value Reference Range Interpretation Comments BUN/Creatinine Ratio (test code = 11-13 3097-3) [facility] HarlingenEstimat Glomerular Filtration [id number] 08:31:00 Test Item Value Reference Range Interpretation Comments Estimat Glomerular Filtration Rate 60- >60 (test code = 43171-9) Ranges were taken from the National Kidney Disease Education Program and the National Kidney Foundation literature.Reference ranges:60 or greater: Qfcszo79- 59 (for 3 consecutive months): Chronic kidneydisease 15 or less: Kidney failure [facility] HarlingenGlucose Yfawe5379-11-29 08:31:00 Test Item Value Reference Range Interpretation Comments Glucose Level (test code = EAJ6419) 195 74-118 H [facility] HarlingenCalcium Bgboe7970-74-69 08:31:00 Test Item Value Reference Range Interpretation Comments Calcium Level (test code = 55462-3) 9.0 8.4-10.2 [facility] HarlingenWhite Blood Bbkgx7294-73-59 08:12:00 Test Item Value Reference Range Interpretation Comments White Blood Count (test code = 6690-2) 6.06 4.8-10.8 [facility] HarlingenRed Blood Malkk2213-20-81 08:12:00 Test Item Value Reference Range Interpretation Comments Red Blood Count (test code = 789-8) 4.22 4.3-5.7 L [facility]lingenHemoglobin2018-06-08 08:12:00 Test Item Value Reference Range Interpretation Comments Hemoglobin (test code = 20011-1) 12.5 14.0-18.0 L [facility]lingenHematocrit2018-06-08 08:12:00 Test Item Value Reference Range Interpretation Comments Hematocrit (test code = 4544-3) 36.2 38.2-49.6 L [facility] HarlingenMean Corpuscular Itfnzl5217-83-90 08:12:00 Test Item Value Reference Range Interpretation Comments Mean Corpuscular Volume (test code = 85.8 81-99 787-2) [facility]enMean Corpuscular Adszqewtzg3426-07-40 08:12:00 Test Item Value Reference Range Interpretation Comments Mean Corpuscular Hemoglobin (test code 29.6 28-32 = 785-6) [facility]enMean Corpuscular Hemoglobin Ffszixi4883-85-13 08:12:00 Test Item Value Reference Range Interpretation Comments Mean Corpuscular Hemoglobin Concent 34.5 31-35 (test code = 786-4) [facility]enRed Cell Distribution Gyazo2692-63-63 08:12:00 Test Item Value Reference Range Interpretation Comments Red Cell Distribution Width (test code 14.2 11.7-14.4 = 19048-3) [facility] HarlingenPlatelet Odtae2347-02-87 08:12:00 Test Item Value Reference Range Interpretation Comments Platelet Count (test code = 777-3) 263 140-360 [facility]lingenNeutrophils (%) (Auto)2017-10-27 08:12:00 Test Item Value Reference Range Interpretation Comments Neutrophils (%) (Auto) (test code = 51.2 38.7-80.0 48514-3) [facility]enLymphocytes (%) (Auto)2017-10-27 08:12:00 Test Item Value Reference Range Interpretation Comments Lymphocytes (%) (Auto) (test code = 33.7 18.0-39.1 736-9) [facility]enMonocytes (%) (Auto)2017-10-27 08:12:00 Test Item Value Reference Range Interpretation Comments Monocytes (%) (Auto) (test code = 9.1 4.4-11.3 5905-5) [facility]enEosinophils (%) (Auto)2017-10-27 08:12:00 Test Item Value Reference Range Interpretation Comments Eosinophils (%) (Auto) (test code = 4.8 0.0-6.0 713-8) [facility]enBasophils (%) (Auto)2017-10-27 08:12:00 Test Item Value Reference Range Interpretation Comments Basophils (%) (Auto) (test code = 0.7 0.0-1.0 706-2) [facility] HarlingenIM GRANULOCYTES %2017-10-27 08:12:00 Test Item Value Reference Range Interpretation Comments IM GRANULOCYTES % (test code = IM 0.5 0.0-1.0 GRANULOCYTES %) [facility]enNeutrophils # (Auto)2017-10-27 08:12:00 Test Item Value Reference Range Interpretation Comments Neutrophils # (Auto) (test code = 3.1 2.1-6.9 751-8) [facility]enLymphocytes # (Auto)2017-10-27 08:12:00 Test Item Value Reference Range Interpretation Comments Lymphocytes # (Auto) (test code = 2.0 1.0-3.2 89436-4) [facility]enMonocytes # (Auto)2017-10-27 08:12:00 Test Item Value Reference Range Interpretation Comments Monocytes # (Auto) (test code = 742-7) 0.6 0.2-0.8 [facility]enEosinophils # (Auto)2017-10-27 08:12:00 Test Item Value Reference Range Interpretation Comments Eosinophils # (Auto) (test code = 0.3 0.0-0.4 711-2) [facility]enBasophils # (Auto)2017-10-27 08:12:00 Test Item Value Reference Range Interpretation Comments Basophils # (Auto) (test code = 704-7) 0.0 0.0-0.1 [facility] HarlingenAbsolute Immature Granulocyte ([id number] 08:12:00 Test Item Value Reference Range Interpretation Comments Absolute Immature Granulocyte (auto 0.03 0-0.1 (test code = Absolute Immature Granulocyte (auto) [facility]lingenCreatine Kinase [id number] 15:14:00 Test Item Value Reference Range Interpretation Comments Creatine Kinase MB (test code = 3.90 0-5.0 06194-9) [facility] HarlingenTroponin [id number] 15:14:00 Test Item Value Reference Range Interpretation Comments Troponin I (test code = QPH1988) 0.054 0-0.300 [facility] HarlingenCreatine Dtngqv6878-06-39 15:07:00 Test Item Value Reference Range Interpretation Comments Creatine Kinase (test code = 2157-6) 297 30-200 H [facility] HarlingenHemoglobin A1c Ahwnvth7955-63-58 08:04:00 Test Item Value Reference Range Interpretation Comments Hemoglobin A1c Percent (test code = 12.6 4.0-7.0 H Hemoglobin A1c Percent) [facility] HarlingenTriglycerides Heihx7078-77-34 06:57:00 Test Item Value Reference Range Interpretation Comments Triglycerides Level (test code = 200 0-149 H 2571-8) [facility] HarlingenCholesterol Bikan5731-54-06 06:57:00 Test Item Value Reference Range Interpretation Comments Cholesterol Level (test code = 2093-3) 239 0-199 H Less than 200 mg/dL Low Ycai185 - 239 mg/dL Borderline Xhan877 mg/dl and greater High RiskVal[facility] – HarlingenLDL Scjlxkmenlg2456-68-29 06:57:00 Test Item Value Reference Range Interpretation Comments LDL Cholesterol (test code = 2089-1) 164 60-130 H [facility] HarlingenHDL Taptrmuefgn6959-80-99 06:57:00 Test Item Value Reference Range Interpretation Comments HDL Cholesterol (test code = 2085-9) 35 40-60 L [facility] HarlingenCholesterol/HDL Roazj5699-97-43 06:57:00 Test Item Value Reference Range Interpretation Comments Cholesterol/HDL Ratio (test code = 6.8 3.9-4.7 H 9830-1) [facility] HarlingenUrine Opiates Loxqua0163-98-51 16:18:00 Test Item Value Reference Range Interpretation Comments Urine Opiates Screen (test code = NEGATIVE NEGATIVE 63275-2) [facility] HarlingenUrine Barbiturates Civdrw4677-92-68 16:18:00 Test Item Value Reference Range Interpretation Comments Urine Barbiturates Screen (test code NEGATIVE NEGATIVE = 680597728) [facility] HarlingenUrine Phencyclidine [id number] 16:18:00 Test Item Value Reference Range Interpretation Comments Urine Phencyclidine Screen (test NEGATIVE NEGATIVE code = 62943-3) [facility] Har[facility]enUrine Amphetamines Bxegez5690-92-54 16:18:00 Test Item Value Reference Range Interpretation Comments Urine Amphetamines Screen (test code NEGATIVE NEGATIVE = 18167-3) [facility]enUrine Methamphetamines Zpxdtt6568-58-47 16:18:00 Test Item Value Reference Range Interpretation Comments Urine Methamphetamines Screen (test NEGATIVE NEGATIVE code = Urine Methamphetamines Screen) [facility]enUrine Benzodiazepines Fqumvg9802-78-61 16:18:00 Test Item Value Reference Range Interpretation Comments Urine Benzodiazepines Screen (test NEGATIVE NEGATIVE code = 73881-7) [facility]enUrine Cocaine Jjkslo0433-55-97 16:18:00 Test Item Value Reference Range Interpretation Comments Urine Cocaine Screen (test code = NEGATIVE NEGATIVE 3398-5) [facility]enUrine Cannabinoids Dewgve8266-26-05 16:18:00 Test Item Value Reference Range Interpretation Comments Urine Cannabinoids Screen (test code NEGATIVE NEGATIVE = 69228-0) THESE RESULTS ARE FOR MEDICAL TREATMENT ONLYTHIS REPORT CONTAINS UNCONFIRMED SCREENING RESULTS*POSITIVE RESULTS WILL BE CONFIRMED BY REFERENCE LAB UPON REQUEST CUT-OFFDRUG CLASS CONCENTRATION ng/mLAmphetamines 1000Methamphetamines 1000Cocaine 300Opiate 300Phencyclidine 25Cannabinoid 50Barbiturates 300Benzodiazepine 300Methadone 300[facility] HarlingenUrine Methadone Msficu9959-35-45 16:18:00 Test Item Value Reference Range Interpretation Comments Urine Methadone Screen (test code = NEGATIVE NEGATIVE 25938-0) THESE RESULTS ARE FOR MEDICAL TREATMENT ONLYTHIS REPORT CONTAINS UNCONFIRMED SCREENING RESULTS*POSITIVE RESULTS WILL BE CONFIRMED BY REFERENCE LAB UPON REQUEST CUT-OFFDRUG CLASS CONCENTRATION ng/mLAmphetamines 1000Methamphetamines 1000Cocaine Metabolite 300Opiate 300Phencyclidine 67Mrrlqmanjou43Dsaylomewqhs 300Benzodiazepine 300Methadone 300[facility] HarlingenProthrombin Rnkl5324-40-33 14:13:00 Test Item Value Reference Range Interpretation Comments Prothrombin Time (test code = 5902-2) 13.6 11.9-14.5 [facility] HarlingenProthromb Time International [id number] 14:13:00 Test Item Value Reference Range Interpretation Comments Prothromb Time International Ratio 1.13 (test code = 6301-6) Oral Anticoagulant Therapy INR Values:1. Low Intensity Therapy 1.5 - 2.02. Moderate Intensity Therapy 2.0 - 3.03. High Intensity Therapy(1) 2.5 - 3.54. High Intensity Therapy(2) 3.0 - 4.05. Panic ValueINR > 5.0[facility] Partial Thromboplast Vmyc3735-36-42 14:13:00 Test Item Value Reference Range Interpretation Comments Activated Partial Thromboplast Time 27.6 23.8-35.5 (test code = 43680-9) [facility]enTotal Tixomtuey0630-82-09 14:10:00 Test Item Value Reference Range Interpretation Comments Total Bilirubin (test code = 1975-2) 0.6 0.2-1.2 [facility]enAspartate Amino Transf (AST/SGOT)2017-10-23 14:10:00 Test Item Value Reference Range Interpretation Comments Aspartate Amino Transf (AST/SGOT) (test 36 5-34 H code = Aspartate Amino Transf (AST/SGOT)) [facility]enAlanine Aminotransferase (ALT/SGPT)2017-10-23 14:10:00 Test Item Value Reference Range Interpretation Comments Alanine Aminotransferase (ALT/SGPT) 34 0-55 (test code = 1742-6) [facility] Kptlpbf4496-23-49 14:10:00 Test Item Value Reference Range Interpretation Comments Total Protein (test code = 2885-2) 7.3 6.5-8.1 [facility]enAlbumin2018-06-04 14:10:00 Test Item Value Reference Range Interpretation Comments Albumin (test code = 1751-7) 4.0 3.5-5.0 [facility]enGlobulin2018-06-04 14:10:00 Test Item Value Reference Range Interpretation Comments Globulin (test code = 49379-4) 3.3 2.3-3.5 [facility]en[facility]/Globulin Ecnqn6479-58-15 14:10:00 Test Item Value Reference Range Interpretation Comments Albumin/Globulin Ratio (test code = 1.2 0.8-2.0 1759-0) [facility]enAlkaline Izcotblnhfi6104-99-25 14:10:00 Test Item Value Reference Range Interpretation Comments Alkaline Phosphatase (test code = 109 40-150 6768-6) [facility]enB-[facility] Natriuretic Wcbylks7248-27-22 14:10:00 Test Item Value Reference Range Interpretation Comments B-Type Natriuretic Peptide (test code = 92.8 0-100 48482-2) [facility]enAmylase Boljx9426-90-77 14:10:00 Test Item Value Reference Range Interpretation Comments Amylase Level (test code = 1798-8) 126 25-125 H [facility]enLipase2018-06-04 14:10:00 Test Item Value Reference Range Interpretation Comments Lipase (test code = 3040-3) 98 8-78 H [facility]enD-Dimer Quantitative (PE/DVT)2017-10-23 14:02:00 Test Item Value Reference Range Interpretation Comments D-Dimer Quantitative (PE/DVT) (test 0.49 0.00-0.45 H code = 05442-7) [facility]enDirect Zsxwcphlo7288-21-27 13:47:00 Test Item Value Reference Range Interpretation Comments Direct Bilirubin (test code = 25366-3) 0.2 0.0-5.0 [facility]enMagnesium Qrbtb6603-12-33 06:52:00 Test Item Value Reference Range Interpretation Comments Magnesium Level (test code = 76943-5) 1.5 1.3-2.1 [facility]enUrine VJI7866-50-99 05:09:00 Test Item Value Reference Range Interpretation Comments Urine WBC (test code = 5821-4) NONE 0-5 [facility]en[facility] TAO2133-91-03 05:09:00 Test Item Value Reference Range Interpretation Comments Urine RBC (test code = 20395-3) NONE 0-5 [facility] Ioibzdfb1926-93-76 05:09:00 Test Item Value Reference Range Interpretation Comments Urine Bacteria (test code = 47977-0) NONE NONE [facility] Epithelial Qutny0335-75-09 05:09:00 Test Item Value Reference Range Interpretation Comments Urine Epithelial Cells (test code = NONE NONE 89050-8) [facility]en[facility] Okemw7904-18-01 04:46:00 Test Item Value Reference Range Interpretation Comments Urine Color (test code = 5778-6) YELLOW YELLOW [facility] Rrdrjtx6392-70-34 04:46:00 Test Item Value Reference Range Interpretation Comments Urine Clarity (test code = 38392-8) CLEAR CLEAR [facility]en[facility] Specific Stfbecm1904-80-60 04:46:00 Test Item Value Reference Range Interpretation Comments Urine Specific [place] (test code = 1.010 1.010-1.025 5811-5) [facility]en[facility] cT5581-93-16 04:46:00 Test Item Value Reference Range Interpretation Comments Urine pH (test code = 42075-1) 8 5-7 H [facility] Leukocyte Jscixxgw1586-77-02 04:46:00 Test Item Value Reference Range Interpretation Comments Urine Leukocyte Esterase (test code NEGATIVE NEGATIVE = 5799-2) [facility]en[facility] Gotfzmd1555-03-31 04:46:00 Test Item Value Reference Range Interpretation Comments Urine Nitrite (test code = 67139-4) NEGATIVE NEGATIVE [facility]en[facility] Dlbbhcs8697-47-45 04:46:00 Test Item Value Reference Range Interpretation Comments Urine Protein (test code = 5804-0) NEGATIVE NEGATIVE [facility]en[facility] Glucose (UA)2017-03-05 04:46:00 Test Item Value Reference Range Interpretation Comments Urine Glucose (UA) (test code = NEGATIVE NEGATIVE 2349-9) [facility]en[facility] Vtxenxs0939-01-64 04:46:00 Test Item Value Reference Range Interpretation Comments Urine Ketones (test code = 35842-8) NEGATIVE NEGATIVE [facility] Ppfeufjswidv3766-09-35 04:46:00 Test Item Value Reference Range Interpretation Comments Urine Urobilinogen (test code = 0.2 0.2-1 14143-3) [facility]en[facility] Wlckuuvxv1504-57-70 04:46:00 Test Item Value Reference Range Interpretation Comments Urine Bilirubin (test code = 1978-6) NEGATIVE NEGATIVE [facility]en[facility] Llnkt8205-49-90 04:46:00 Test Item Value Reference Range Interpretation Comments Urine Blood (test code = 92732-8) 2+ NEGATIVE H [facility]lingenCTA BRAIN [facility] [address] [place] [address] PatientName: FAITH VANCE MR #: [id number] : 1960 Age/Sex: 57/M Req #: [id number] Adm Physician: ALEXIS COX MD Ordered by: ALEXIS COX MD Report #: [id number] Location: [facility] Room/Bed: [place] [address] Procedure: [id number] CT/CTA BRAIN Exam Date: 10/24/17 Exam Time: [...] PM Dictated By: ANA MARIA ARTEAGA MD 1638 Transcribed By: ANDREE on 10/24/17 1633 COPY TO: ALEXIS COX MDCT BRAIN WO [place] [address] PatientName: FAITH VANCE MR #: [id number] : 1960 Age/Sex: 57/M Req #: [id number] Adm Physician: Ordered by: KHAI WAHL MD Report #: [id number] Location: Room/Bed: __ Procedure: [id number] CT/CT BRAIN WO Exam Date: 10/23/17 Exam [...] 10/23/17 164 COPY TO: KHAI WAHL V MDCTA CHEST [place] [address] PatientName: FAITH VANCE MR #: [id number] : 1960 Age/Sex: 57/M Req #: [id number] Adm Physician: Ordered by: KHAI WAHL MD Report #: [id number] Location: ER Room/Bed: __ Procedure: [id number] CT/CTA CHEST Exam Date: 10/23/17 Exam Time: [...] reviewed and is below limits set by [facility]). FINDINGS: Lines and Tubes: Pacemaker [...] 1621 COPY TO: KHAI WAHL V [facility] SINGLE (PORTABLE) [place] [address] PatientName: FAITH VANCE MR #: [id number] : 1960 Age/Sex: 57/M Req #: [id number] Adm Physician: Ordered by: KHAI WAHL MD Report #: [id number] Location: ER Room/Bed: __ Procedure: [id number] DX/CHEST SINGLE (PORTABLE) Exam Date: 10/23/17 Exam [...] TO: KHAI WAHL V MDCT BRAIN WO [place] [id number] [place] [address] PatientName: FAITH VANCE MR #: [id number] : 1960 Age/Sex: 56/M Req #: [id number] Adm Physician: Ordered by: JACQUELYN MONTES DE OCA MD Report #: [id number] Location: ER Room/Bed: Procedure: [id number] CT/CT BRAIN WO Exam Date: Exam Time: [...] MONTES DE OCA MDCT CERVICAL SPINE WO [place] [address] PatientName: FAITH VANCE MR #: [id number] : 1960 Age/Sex: 56/M Req #: [id number] Adm Physician: Ordered by: JACQUELYN MONTES DE OCA MD Report #: [id number] Location: ER Room/Bed: Procedure: [id number] CT/CT CERVICAL SPINE WO Exam Date: Exam [...] 6 COPY TO: JACQUELYN MONTES DE OCA [facility] [place] [address] PatientName: FAITH VANCE MR #: [id number] : 1960 Age/Sex: 56/M Req #: [id number] Adm Physician: Ordered by: JACQUELYN MONTES DE OCA MD Report #: [id number] Location: ER Room/Bed: Procedure: [id number] DX/CHEST SINGLE (PORTABLE) Exam Date: 04/04/17 Exam [...] OCA MDHIP RIGHT 2-3 VW (+/- PELVIS) [place] [address] PatientName: FAITH VANCE MR #: [id number] : 1960 Age/Sex: 56/M Req #: [id number] Adm Physician: Ordered by: JACQUELYN MONTES DE OCA MD Report #: [id number] Location: ER Room/Bed: Procedure: [id number] DX/HIP RIGHT 2-3 VW (+/- PELVIS) Exam [...] DE OCA MDSP LUMBAR, COMPLETE MIN 4VW [place] [address] PatientName: FAITH VANEC MR #: [id number] : 1960 Age/Sex: 56/M Req #: [id number] Adm Physician: Ordered by: JACQUELYN MONTES DE OCA MD Report #: [id number] Location: ER Room/Bed: Procedure: [id number] DX/SP LUMBAR, COMPLETE MIN 4VW Exam Date: 04/04/17 Exam Time: 0108 REPORT STATUS: Signed SP LUMBAR, COMPLETE MIN 4VW Comparison: CT 08/10/2016 Clinical history: Status post fall with lowerback pain Findings: Postoperative changes from posterior fusion from left L4 vertebral body to L5-E1gwbyks and posterior decompression. No evidence of hardware [...] JACQUELYN MONTES DE OCA MDUS ABDOMEN COMPLETE [place] [address] PatientName: FAITH VANCE MR #: [id number] : 1960 Age/Sex: 56/M Req #: [id number] Adm Physician: NICHELLE PALACIOS MD Ordered by: SCOTT AMIN MD Report #: [id number] Location: [facility] Room/Bed: [place] [address] Procedure: [id number] US/US ABDOMEN COMPLETE Exam Date: 03/08/17 Exam Time: 09 REPORT STATUS: Signed PROCEDURE: ABDOMINAL ULTRASOUND COMPARISON: [...] on 03/08/17 1040 COPY TO: SCOTT AMIN [facility] [place] [address] PatientName: FAITH VANCE MR #: [id number] : 1960 Age/Sex: 56/M Req #: [id number] Adm Physician: Ordered by: JACQUELYN MONTES DE OCA MD Report #: [id number] Location: Room/Bed: Procedure: [id number] DX/CHEST SINGLE (PORTABLE) Exam Date: 03/05/17 Exam [...]
[2022-07-19] MEDS ORDERED: MORPHINE 4 MG/ML SYR ONE (15:42)
[2022-07-19 15:43] LABS: Absolute Lymphocytes (CBC) 0.7 K/uL (0.7-4.9); Hematocrit 30.4 % (39.6-49.0); MCV 82.1 fL (80-100); MPV 7.2 fL (7.6-11.3)
[2022-07-19 15:45] LABS: Protime INR 1.78
[2022-07-19 15:59] LABS: Magnesium 2.1 mg/dL (1.6-2.4); Potassium 4.6 mmol/L (3.5-5.1)
--- NOTE | 2022-07-19 16:01 | RAD REPORT ---
EXAM DESCRIPTION: RAD - Chest Single View - 07/19/2022 3:50 pm CLINICAL HISTORY: CHEST PAIN COMPARISON: Chest Single View dated 07/16/2022; Chest Single View dated 07/14/2022; Chest Single View dated 07/11/2022; Chest Single View dated 07/08/2022; Thorax Wo Con dated 07/16/2022 FINDINGS: Lines: Pacemaker. Lungs: No evidence of edema or pneumonia. Pleural: Bilateral pleural effusions which are similar. Cardiac: Cardiomegaly. Mediastinum: Within normal limits. Bones: No acute fractures. Sternotomy. Other: None IMPRESSION: No significant change in aeration of the lungs compared with 07/16/2022 with bilateral p leural effusions and presumably underlying atelectasis.
[2022-07-19 16:21] LABS: SARS-COV-2 RT PCR NEGATIVE (NEGATIVE)
[2022-07-19] MEDS ORDERED: FUROSEMIDE 20 MG/ 2ML VIAL ONE (17:26)
[2022-07-19] MEDS ORDERED: ONDANSETRON 4 MG/2 ML VIAL ONE (17:33)
[2022-07-19] MEDS ORDERED: KETOROLAC 30 MG/ML INJ ONE (20:30)
--- NOTE | 2022-07-19 21:51 | ER ---
Nurse's Notes [facility] Name: Ernie Rooney Age: 62 yrs Sex: Male : 1960 Arrival Date: 07/19/2022 Time: 15:14 Bed 18 Private MD: Diagnosis: Chest pain, unspecified;Unspecified combined systolic (congestive) and diastolic (congestive) heart failure;Patient's noncompliance with medical treatment and regimen Presentation: 07/19 15:15 Chief complaint: EMS states: patient called for chest pain. Coronavirus screen: At this ko1 time, the client does not indicate any symptoms associated with coronavirus-19. Ebola Screen: No symptoms or risks identified at this time. Initial Sepsis Screen: Does the patient meet any 2 criteria? No. Patient's initial sepsis screen is negative. Does the patient have a suspected source of infection? No. Patient's initial sepsis screen is negative. Risk Assessment: Do you want to hurt yourself or someone else? Patient reports no desire to harm self or others. Onset of symptoms was July 19, 2022. 15:15 Method Of Arrival: EMS: [facility] ko1 15:15 Acuity: TONE 3 ko1 15:15 Care prior to arrival: Medication(s) given: ASA, 81 mg, x 4. ko1 15:26 Care prior to arrival: IV initiated. 20 GA, in the left forearm, 12 lead ekg. ko1 Triage Assessment: 15:24 General: Appears in no apparent distress. uncomfortable, Behavior is calm, cooperative, ko1 appropriate for age. Pain: Complains of pain in chest. Historical: - Allergies: 15:24 Nitroglycerin; ko1 - PMHx: 15:24 Arthritis; CAD; CHF; CVA; Depression; Fibromyalgia; GERD; Hyperlipidemia; Hypertensive ko1 disorder; Hypothyroidism; IDDM; Left sided weakness from previous CVA; Myocardial infarction; Pacemaker; Back pain; - PSHx: 15:24 bilat BKA's; bypass; CABG; ko1 - Immunization history:: Adult Immunizations up to date. - Social history:: Smoking status: Patient/guardian denies using tobacco. Screenin:30 [facility] ED Fall Risk Assessment (Adult) History of falling in the last 3 months, ko1 including since admission No falls in past 3 months (0 pts) Confusion or Disorientation No (0 pts) Intoxicated or Sedated No (0 pts) Impaired Gait Yes (1 pt) Mobility Assist Device Used Yes (1 pt) Altered Elimination No (0 pt) Score/Fall Risk Level 0 - 2 = Low Risk Oriented to surroundings, Maintained a safe environment, Educated pt \T\ family on fall prevention, incl call for assistance when getting out of bed, Assessed \T\ reinforced patient's understanding of fall precautions, Provided non-skid footwear, Hourly rounding (assess needs \T\ fall precautionary measures) done, Used ambulatory aids as needed (educated on \T\ assisted with), Used gait belt as appropriate. Abuse screen: Denies threats or abuse. Denies injuries from another. Nutritional screening: No deficits noted. Tuberculosis screening: No symptoms or risk factors identified. Assessment: 15:30 General: Appears distressed, uncomfortable. Pain: Complains of pain in chest. Neuro: No ko1 deficits noted. Cardiovascular: Reports chest pain. Respiratory: No deficits noted. GI: No deficits noted. : No deficits noted. EENT: No deficits noted. Derm: No deficits noted. 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 19:10 Reassessment: ASSUMED CARE OF PT. PT SITTING UP IN BED WATCHING TV. NO DISTRESS NOTED. jj7 VS STABLE. PT STATES HE IS STILL HAVING CP. WILL INFORM MD. NO OTHER NEEDS AT THIS TIME. Vital Signs: 15:15 BP 126 / 69; Pulse 84; Resp 18; Temp 98; Pulse Ox 99% on R/A; ko1 15:30 BP 129 / 71; Pulse 84; Resp 16; Pulse Ox 99% ; ko1 16:00 BP 115 / 71; Pulse 82; Resp 20; Pulse Ox 96% ; ko1 16:30 BP 117 / 64; Pulse 77; Resp 18; Pulse Ox 95% ; ko1 17:00 BP 123 / 66; Pulse 78; Resp 16; Pulse Ox 97% ; ko1 17:30 BP 127 / 73; Pulse 66; Resp 18; Pulse Ox 98% ; ko1 19:10 BP 128 / 75; Pulse 69; Resp 17; Pulse Ox 99% ; Pain 8/10; jj7 20:21 BP 120 / 66; Pulse 70; Resp 20; Pulse Ox 98% ; jj7 21:25 BP 108 / 69; Pulse 74; Resp 16; Pulse Ox 99% ; Pain 1/10; jj7 22:32 BP 126 / 68; Pulse 65; Resp 16; Pulse Ox 98% ; Pain 1/10; jj7 ED Course: 15:14 Patient arrived in ED. ko1 15:18 Mustapha Joe PA is PHCP. cp 15:19 Hawk Parrish MD is Attending Physician. cp 15:21 Malka Samuels, SHEBA is Primary Nurse. ko1 15:24 Triage completed. ko1 15:24 Arm band placed on right wrist. ko1 15:30 Patient has correct armband on for positive identification. Fall risk band placed. Bed ko1 in low position. Call light in reach. Side rails up X2. Client placed on continuous cardiac and pulse oximetry monitoring. NIBP monitoring applied. picture frame maker on. Door closed. Noise minimized. Lights dimmed. Warm blanket given. 15:30 No provider procedures requiring assistance completed. ko1 15:33 Basic Metabolic Panel Sent. ko1 15:33 CBC with Diff Sent. ko1 15:33 Magnesium Sent. ko1 15:33 NT PRO-BNP Sent. ko1 15:33 PT-INR Sent. ko1 15:33 Troponin HS Sent. ko1 15:33 COVID-19/FLU A+B Sent. ko1 15:52 XRAY Chest (1 view) In Process Unspecified. EDMS 20:38 Troponin High Sensitivity Sent. jj7 22:32 IV discontinued, intact, bleeding controlled, No redness/swelling at site. Pressure jj7 dressing applied. Administered Medications: 15:38 Drug: morphine 4 mg Route: IVP; Infused Over: 4 mins; Site: left forearm; ko1 17:25 Drug: Lasix (furosemide) 20 mg Route: IVP; Site: left forearm; ko1 17:26 Not Given (given by ems ptaa): Aspirin Chewable Tablet 324 mg PO once; 81 mg tablets x 4ko1 17:31 Drug: Zofran (Ondansetron) 4 mg Route: IVP; Site: left forearm; ko1 22:59 Follow up: Response: No adverse reaction jj7 20:34 Drug: Ketorolac 15 mg Route: IVP; Site: left forearm; jj7 22:59 Follow up: Response: Pain is decreased jj7 Medication: 15:30 VIS not applicable for this client. ko1 Outcome: 21:50 Discharge ordered by . cp 22:32 Discharged to home jj7 22:32 Condition: improved 22:32 Discharge instructions given to patient, Instructed on discharge instructions, Demonstrated understanding of instructions. 22:58 Discharged to home via ambulance. jj7 23:00 Patient left the ED. jj7 Signatures: Dispatcher [employer] EDMS Mustapha Joe PA PA cp Oliver, Kathy, RN RN ko1 Marjorie Bullard RN RN jj7
--- NOTE | 2022-07-19 21:51 | EDPHYS ---
Physician Documentation [facility] Name: Ernie Rooney Age: 62 yrs Sex: Male : 1960 Arrival Date: 07/19/2022 Time: 15:14 Bed 18 Private MD: ED Physician Hawk Parrish HPI: 07/19 15:30 This 62 yrs old Male presents to ER via EMS with complaints of Chest Pain. cp 15:30 The patient or guardian reports chest pain that is located primarily in the anterior cp chest wall. Onset: 1 hour(s) ago. 15:30 The pain does not radiate. Associated signs and symptoms: Pertinent positives: cough, cp shortness of breath, Pertinent negatives: abdominal pain, diaphoresis, vomiting. 15:30 The chest pain is described as constant. cp 15:30 Duration: The patient or guardian reports a single episode, that is still ongoing, and cp unchanged. Historical: - Allergies: 15:24 Nitroglycerin; ko1 - PMHx: 15:24 Arthritis; CAD; CHF; CVA; Depression; Fibromyalgia; GERD; Hyperlipidemia; Hypertensive ko1 disorder; Hypothyroidism; IDDM; Left sided weakness from previous CVA; Myocardial infarction; Pacemaker; Back pain; - PSHx: 15:24 bilat BKA's; bypass; CABG; ko1 - Immunization history:: Adult Immunizations up to date. - Social history:: Smoking status: Patient/guardian denies using tobacco. ROS: 15:30 Constitutional: Negative for body aches, chills, fever, poor PO intake. cp 15:30 Cardiovascular: Positive for chest pain. cp 15:30 Eyes: Negative for injury, pain, redness, and discharge. cp 15:30 ENT: Negative for drainage from ear(s), ear pain, sore throat, difficulty swallowing, difficulty handling secretions. 15:30 Respiratory: Positive for cough, shortness of breath, Negative for wheezing. 15:30 Abdomen/GI: Negative for abdominal pain, vomiting, diarrhea, constipation. 15:30 Back: Negative for pain at rest, pain with movement. 15:30 Neuro: Negative for altered mental status, dizziness, headache, numbness, weakness. 15:30 All other systems are negative. Exam: 15:30 ECG was reviewed by the Attending Physician. cp 15:33 Constitutional: The patient appears in no acute distress, alert, awake, cp non-diaphoretic, non-toxic, well developed, well nourished, uncomfortable. 15:33 Head/Face: Normocephalic, atraumatic. cp 15:33 Eyes: Periorbital structures: appear normal, Conjunctiva: normal, no exudate, no injection, Sclera: no appreciated abnormality, Lids and lashes: appear normal, bilaterally. 15:33 ENT: External ear(s): are unremarkable, Nose: is normal, Mouth: Lips: moist, Oral mucosa: pink and intact, moist, Posterior pharynx: is normal, airway is patent, no erythema, no exudate. 15:33 Neck: ROM/movement: is normal, is supple, no meningismus, no nuchal rigidity. 15:33 Chest/axilla: Inspection: normal, Palpation: is normal, no crepitus, no tenderness. 15:33 Cardiovascular: Rate: normal, Rhythm: regular, JVD: is not appreciated. 15:33 Respiratory: the patient does not display signs of respiratory distress, Respirations: normal, no use of accessory muscles, no retractions, labored breathing, is not present, Breath sounds: bronchial sounds, that are mild, are heard diffusely, stridor, is not appreciated, wheezing: is not appreciated. 15:33 Abdomen/GI: Inspection: abdomen appears normal, Palpation: abdomen is soft and non-tender, in all quadrants. 15:33 Musculoskeletal/extremity: bilateral below the knee amputation. 15:33 Neuro: Orientation: to person, place \T\ time. Mentation: is normal, Motor: moves all fours, strength is normal, Sensation: is normal. Vital Signs: 15:15 BP 126 / 69; Pulse 84; Resp 18; Temp 98; Pulse Ox 99% on R/A; ko1 15:30 BP 129 / 71; Pulse 84; Resp 16; Pulse Ox 99% ; ko1 16:00 BP 115 / 71; Pulse 82; Resp 20; Pulse Ox 96% ; ko1 16:30 BP 117 / 64; Pulse 77; Resp 18; Pulse Ox 95% ; ko1 17:00 BP 123 / 66; Pulse 78; Resp 16; Pulse Ox 97% ; ko1 17:30 BP 127 / 73; Pulse 66; Resp 18; Pulse Ox 98% ; ko1 19:10 BP 128 / 75; Pulse 69; Resp 17; Pulse Ox 99% ; Pain 8/10; jj7 20:21 BP 120 / 66; Pulse 70; Resp 20; Pulse Ox 98% ; jj7 21:25 BP 108 / 69; Pulse 74; Resp 16; Pulse Ox 99% ; Pain 1/10; jj7 22:32 BP 126 / 68; Pulse 65; Resp 16; Pulse Ox 98% ; Pain 1/10; jj7 MDM: 15:19 Patient medically screened. 16:00 Differential diagnosis: acute myocardial infarction, acute pericarditis, pericarditis, cp pleurisy, pneumonia, pneumothorax, stable angina, thoracic aortic disection, unstable angina, chronic pain. 21:35 Data reviewed: vital signs, nurses notes, lab test result(s), EKG, radiologic studies, cp plain films. 21:50 Consideration of Admission/Observation Escalation of care including cp admission/observation considered. 21:50 I considered the following discharge prescriptions or medication management in the emergency department Medications were administered in the Emergency Department. See MAR. 21:50 Test considered but Not performed: CT: chest. Care significantly affected by the cp following chronic conditions: Diabetes, Hypertension, Congestive Heart Failure. Counseling: I had a detailed discussion with the patient and/or guardian regarding: the historical points, exam findings, and any diagnostic results supporting the discharge/admit diagnosis, lab results, radiology results, to return to the emergency department if symptoms worsen or persist or if there are any questions or concerns that arise at home. Special discussion: I discussed with the patient their frequent requests for pain medications. Instructions have been given, that in the best interests of the patient, further pain Rx's must come from the patient's PCP or a paint and table edger. ED course: Patient reports he has not been taking prescribed meds due to not having the money to pick them up from the pharmacy. 07/19 15:26 Order name: Basic Metabolic Panel; Complete Time: 16:05 07/19 16:23 Interpretation: Normal except: GLUC 184; BUN 36; GFR 85; CA 8.0. 07/19 15:26 Order name: CBC with Diff; Complete Time: 16:05 07/19 16:23 Interpretation: Normal except: RBC 3.70; HGB 10.0; HCT 30.4; RDW 16.6; MPV 7.2; LYM% cp 12.0; EOSINOPHIL % 4.8. 07/19 15:26 Order name: Magnesium; Complete Time: 16:05 cp 07/19 15:26 Order name: NT PRO-BNP; Complete Time: 16:05 cp 07/19 15:26 Order name: PT-INR; Complete Time: 16:05 cp 07/19 16:25 Interpretation: Reviewed. 07/19 15:26 Order name: Troponin HS; Complete Time: 16:05 cp 07/19 15:26 Order name: XRAY Chest (1 view); Complete Time: 16:05 cp 07/19 15:26 Order name: EKG; Complete Time: 15: cp 07/19 15:26 Order name: Cardiac monitoring; Complete Time: 15:27 cp 07/19 15:26 Order name: EKG - Nurse/Tech; Complete Time: 15:27 cp 07/19 15:26 Order name: IV Saline Lock; Complete Time: 15:27 cp 07/19 15:26 Order name: Labs collected and sent; Complete Time: 15:33 cp 07/19 15:26 Order name: O2 Per Protocol; Complete Time: 15:27 cp 07/19 15:26 Order name: O2 Sat Monitoring; Complete Time: 15:27 cp 07/19 15:26 Order name: COVID-19/FLU A+B; Complete Time: 16:22 cp 07/19 16:23 Interpretation: Reviewed. 07/19 18:52 Order name: Troponin High Sensitivity; Complete Time: 21:33 cp EC:30 Rate is 89 beats/min. Rhythm is regular. IL interval is normal. QRS interval is cp prolonged. QT interval is normal. T waves are Inverted in leads I, aVL. Interpreted by me. Reviewed by me. Administered Medications: 15:38 Drug: morphine 4 mg Route: IVP; Infused Over: 4 mins; Site: left forearm; ko1 17:25 Drug: Lasix (furosemide) 20 mg Route: IVP; Site: left forearm; ko1 17:26 Not Given (given by ems ptaa): Aspirin Chewable Tablet 324 mg PO once; 81 mg tablets x 4ko1 17:31 Drug: Zofran (Ondansetron) 4 mg Route: IVP; Site: left forearm; ko1 22:59 Follow up: Response: No adverse reaction jj7 20:34 Drug: Ketorolac 15 mg Route: IVP; Site: left forearm; jj7 22:59 Follow up: Response: Pain is decreased jj7 Disposition Summary: 07/19/22 21:50 Discharge Ordered Location: Home cp Problem: an acute exacerbation cp Symptoms: have improved cp Condition: Stable cp Diagnosis - Chest pain, unspecified cp - Unspecified combined systolic (congestive) and diastolic (congestive) heart failure cp - Patient's noncompliance with medical treatment and regimen cp Followup: cp - With: Private Physician - When: 1 - 2 days - Reason: Recheck today's complaints Discharge Instructions: - Discharge Summary Sheet cp - Nonspecific Chest Pain, Adult cp - Heart Failure, Diagnosis cp - Aspirin and Your Heart cp - Heart Failure, Self Care cp Forms: - Medication Reconciliation Form cp - Thank You Letter cp - Antibiotic Education cp - Prescription Opioid Use cp Addendum: 07/21/2022 10:30 Co-signature as Attending Physician, Hawk Parrish MD I reviewed the patient's care r n provided by the Advanced Practice Provider and agree with the diagnosis and treatment plan. Signatures: Dispatcher [employer] EDMS Hawk Parrish MD MD rn Page, Corey, PA PA cp Malka Samuels RN RN ko1 Marjorie Bullard RN RN jj7 Corrections: (The following items were deleted from the chart) 07/20 14:47 07/19 21:35 Data reviewed: vital signs, nurses notes, cp cp 07/20 14:50 14:47 Consideration of Admission/Observation Escalation of care including cp admission/observation considered. cp
[2022-07-19 23:12] VITALS: TEMP 98
[2022-07-19 23:23] VITALS: BP 126/68; O2SAT 98
--- NOTE | 2022-07-20 11:16 | EKG ---
Test Date: 2022-07-19 Test Time: 15:23:01 Voice Coach: MATT MEASUREMENT RESULTS: Intervals: Rate: 89 HI: 184 QRSD: 164 QT: 440 QTc: 535 [place]: P: 63 HI: 184 QRS: -24 T: 138 INTERPRETIVE STATEMENTS: Electronic ventricular pacemaker Compared to ECG 07/16/2022 13:34:12 No significant changes Electronically Signed On 07-20-22 11:15:00 CORPORATE LIBRARIAN by Kavin Keenan
== END 2022-07-19 23:00 | disposition home or self-care (01) ==
LOC: ER 15:13
DX: R07.89 Other chest pain (principal); I50.40 Unspecified combined systolic (congestive) and diastolic (congestive) heart failure; Z91.14 Patient's other noncompliance with medication regimen; I10 Essential (primary) hypertension; E11.9 Type 2 diabetes mellitus without complications; Z20.822 Contact with and (suspected) exposure to COVID-19; Z95.1 Presence of aortocoronary bypass graft; Z95.0 Presence of cardiac pacemaker; Z88.8 Allergy status to other drugs, medicaments and biological substances; Z89.511 Acquired absence of right leg below knee; Z89.512 Acquired absence of left leg below knee
CPT/HCPCS: 93005; 85025; 80048; 36415; 83735; 85610; 84484 ×2; 83880; 0240U; 71045; 96375; 96374; 99284; J1940; J2405

== ENCOUNTER 2022-07-20 06:59 | Emergency (ER) | payer OTHER ==
--- OUTSIDE RECORDS SUMMARY | 2022-07-20 07:08 | XMS REPORT | Continuity of Care Document ---
:1960 Author Organization [facility] t Address [address] [place] [address] Care Team Providers Name Role Phone MONIKA HALL MD Primary Care Physician [id number] Attending Clinician Unavailable Harshal Zhu Attending Clinician Unavailable Finn Shah Attending Clinician Unavailable Doctor Unassigned, [place] Attending Clinician Unavailable Josselyn Harding RN Attending [...] Jameson Mejia DO Attending Clinician Humaira HALL, iLzett Attending Clinician JYOTI CEDENO S Attending Clinician [...] Attending Clinician Alis Garcia MD Attending Clinician [phone] Kaylyn Calvin MD Attending Clinician Tha Gunter [...] Unavailable Casper RAE, Michael Gaxiola Attending Clinician [phone] Nova RAE, Cortney Law Attending Clinician [phone] Emy SCRUGGS, Rhonda Attending Clinician Dennis Finley MD Attending Clinician Carlos Allen MD Attending Clinician ALEXIS COX Attending Clinician Unavailable JACQUELYN MONTES DE OCA Attending Clinician Unavailable NICHELLE PALACIOS Attending Clinician Unavailable [id number] Admitting Clinician Unavailable Nika Martin Admitting Clinician [...] Admitting Clinician Unavailable Michael Hernandez Admitting Clinician [phone] Malia HALL, Dennis Arreola Admitting Clinician ALEXIS COX Admitting Clinician Unavailable NICHELLE PALACIOS Admitting Clinician Unavailable Payers Payer Name Policy Type Policy Number Effective Date Expiration Date Garfield daugherty [facility] [id number] [employer] [id number] 2018spring 00:00:00 [employer] [id number] [facility] [...] Branch Osteomyeli Osteomyeli Disease Active 2019-05 U [facility] tis tis 0-26 ity of 00:00: Medical [...] Added automatic ally from request for surgery [id number] Troponin I Troponin I Disease Active 2020-0 [...] 00:00: [place] involving involving 00 Medi uriel cahto cahto 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 Type 2 Type 2 Disease Active 2019- Univers diabetes diabetes 8-29 ity of mellitus mellitus 00:00: [place] without without 00 Medical complicati complicati Br anch on, on, without without long-term long-term current current use of use of insulin insulin Essential Essential Disease Active Uni vers hypertensi hypertensi 01-17 it y of on on 00:00: [place] [address] Medical Branch Other Other Disease Active Univers hyperlipid hyperlipid 01-17 it y of emia emia 00:00: [place] [address] Medical Branch Stroke Stroke Disease Active Univers 5-12 ity of 00:00: [place] [address] Medical Branch Left-sided Left-sided Disease Active U nivers weakness weakness - ity of 00:00: [place] Medical [facility] Left sided Left sided Disease Active U nivers numbness numbness - ity of 00:00: [place] [facility] S/P admn S/P admn Disease [...] angina angina 4-10 ity of 00:00: [place] [facility] Atypical Atypical Disease Active Unive rs chest pain chest pain 2-22 it y of 00:00: [place] [address] Medical Branch Chest pain Chest pain Problem Active [facility] Patient 00 Medical [place] Coronary CAD Problem Active [facility] artery (coronary [facility] disease artery Patient disease) Medical [place] Diabetic DKA Problem Active [facility] keto[facility]idos (diabetic Esme es is ketoacidos Patien t es[facility] Hyperglyce Hyperglyce Problem Active [facility] bambi bambi [facility] Hypertensi Hypertensi Problem Active [facility] on on [facility] Pancreatit Pancreatit Problem Active [facility] Uncontroll Uncontroll Problem Active [facility] ed ed [facility] diabetes diabetes Patien t mellitus mellitus [facility] Allergies, Adverse Reactions, Alerts Allergy Allergy Status Severity Reaction(s) Onset Inactive Treating Comm ents Source Name Type Date Date Clinician No Known DA Active U [facility] 3-22 [place] [facility] 00:[facility]: d 00 [facility] No Known DA Active U [facility] Allergie 3- [place] [facility] 00:00: d 00 [facility] No Known DA Active U 2017-05 [facility] Allergie 2-31 Clear s 00:00: Mejia 00 [facility] No Known DA Active U 2017-05 [facility] Allergie 2-31 Clear s 00:00: Mejia 00 [facility] No Known DA Active U [facility] Allergie 3- [place] 00:00: e 00 [facility] NO KNOWN Drug Active Univers ALLERGIE Class ity of S [place] [facility] Social History Social Habit Start Date Stop Date Quantity Comments Source History of Passive smoker University of tobacco use [place] [facility] History SDOH University o f Alcohol Frequency [place] M edical Branch History SDOH University o f Alcohol Std [place] Medical Drinks Branch History SDOH University o f Alcohol Binge [place] Medic al Branch History SDOH Food 2022-02-11 2022-02-11 1 Univers ity of Worry 00:00:00 00:00:00 [place] [facility] History SDOH Food 2022-02-11 2022-02-11 1 Univers ity of Scarcity 00:00:00 00:00:00 [place] [facility] History SDOH 2022-02-11 2022-02-11 2 University o f Transport Med 00:00:00 00:00:00 [place] Medic al Branch History SDOH 2022-02-11 2022-02-11 2 University o f Transport Non-Med 00:00:00 00:00:00 [facility] [place] [facility] edical Branch Exposure to 2022-01-30 2022-02-09 Not sure University of SARS-CoV-2 00:00:00 20:09:00 [place] Medical (event) Branch Tobacco use and 2022-02-09 2022-02-09 Smokeless tobacco Un iversity of exposure 00:00:00 00:00:00 non-user [facility] Branch Alcohol intake 2022-02-09 2022-02-09 1.71 /d University of 00:00:00 00:00:00 [facility] Tobacco Comment 2022-02-09 2022-02-09 quit 15 years ago Un iversity of 00:00:00 00:00:00 [facility] Education 2021-10-27 2021-10-27 9 University of 00:00:00 00:00:00 [facility] History SDOH 2020-03-16 2020-03-16 3 University o f Financial 00:00:00 00:00:00 [facility] Alcohol Comment 2019-07-18 2019-07-18 quit drinking Univer sity of 00:00:00 00:00:00 2013 but drank [facility] heavily before Branch this Sex Ass[birth year] At [birth year] LUCY Sanders 00:00:00 00:00:00 [facility] Smoking Status Start Date Stop Date Source Ex-smoker 2022-02-09 00:00:00 2022-02-09 00:00:00 Universi ty of [facility] Medications Ordered Filled Start Stop Current Ordering Indication Dosage Frequency Signature Comments Components Source Medication Medication Date Date Medication? Clinician (SIG) Name Name aspirin 81 2021- No [id number] 81mg Take 1 Univers mg chewable 9-23 10-24 tablet by it y of tablet 00:00: 04:59 mouth [place] 00 :00 daily with [facility] for 30 days. glipiZIDE 5 2021- No [id number] 5mg Take 1 Univers mg tablet 9-23 10-24 tablet by ity of 00:00: 04:59 mouth in [place] 00 :00 the Medical morning Branch for 30 days. levothyroxi 2021- No [id number] 50ug Take 1 Univers ne 50 mcg 9-23 10-24 tablet by ity of tablet 00:00: 04:59 mouth [place] 00 :00 every Medical morning Branch for 30 days. lisinopriL 2021- No [id number] 2.5mg Take 1 Univers 2.5 mg 9-23 10-24 tablet by ity of tablet 00:00: 04:59 mouth in [place] 00 :00 the Medical morning Branch for 30 days. spironolact 2021- No [id number] 25mg Take 1 Univers one 25 mg 9-23 10-24 tablet by ity of tablet 00:00: 04:59 mouth in [place] 00 :00 the Medical morning Branch for 30 days. tamsulosin 2021- No [id number] .4mg Take 1 Univers 0.4 mg 24 9-23 10-24 capsule by ity of hr capsule 00:00: 04:59 mouth in [facility] 00 :00 the Medical morning Branch for 30 days. aspirin 81 2021- No [id number] 81mg Take 1 Univers mg chewable 9-23 10-24 tablet by it y of tablet 00:00: 04:59 mouth [place] 00 :00 daily with [facility] breakfast Branch for 30 days. glipiZIDE 5 2021- No [id number] 5mg Take 1 Univers mg tablet 9- 10-24 tablet by ity of 00:00: 04:59 mouth in [place] 00 :00 the [facility] morning [place] for 30 days. levothyroxi 2021- No [id number] 50ug Take 1 Univers ne 50 mcg 9-23 10-24 tablet by ity of tablet 00:00: 04:59 mouth [place] 00 :00 every [facility] morning Branch for 30 days. lisinopriL 2021- No [id number] 2.5mg Take 1 Univers 2.5 mg 9-23 10-24 tablet by ity of tablet 00:00: 04:59 mouth in [place] 00 :00 the [facility] morning [place] for 30 days. spironolact 2021- No [id number] 25mg Take 1 Univers one 25 mg 9-23 10-24 tablet by ity of tablet 00:00: 04:59 mouth in [place] 00 :00 the [facility] for 30 days. tamsulosin 2021- No [id number] .4mg Take 1 Univers 0.4 mg 24 9-23 10-24 capsule by ity of hr capsule 00:00: 04:59 mouth in [facility] 00 :00 the [facility] morning [place] for 30 days. sulfur 2021- No [id number] 5mL 5 mL, Unive rs hexafluorid 02-10 Intravenou i ty of e microsphr 16:30: 16:30 s, ONCE, 1 [place] (LUMASON) 00 :00 dose, On Medica l injection 5 Annie Branch mL 02/10/22 at 1130, Routine
research assistant member approving Restricted medication : NINFA CASTILLO K.HHortensia traMADoL 0 Yes 50mg 50 mg, Univers (ULTRAM) 02-10 Oral, ity of tablet 50 15:10: Q6HPRN, [place] mg 57 Starting Medical on [facility] 02/10/22 at 1010, Until Discontinu ed, Routine, Pain (scale 7-10) lisinopriL 0 Yes 2.5mg 2.5 mg, Uni vers (PRINIVIL,Z 02-10 Oral, ity of ESTRIL) 14:00: DAILY, [place] tablet 2.5 00 First dose Med ical mg on [facility] Branch 02/10/22 at 0900, Until Discontinu ed, Routine glipiZIDE Yes 5mg 5 mg, Univers (GLUCOTROL) 02-10 Oral, ity of tablet 5 mg 14:00: DAILY, [place] 00 First dose Medical on [facility] 02/10/22 at 0900, Until Discontinu ed, Routine enoxaparin 0 Yes 30mg 30 mg, Unive rs (LOVENOX) 02-10 Subcutaneo ity of injection 14:00: [place], DAILY, [place] 30 mg 00 First dose Medical on [facility] 02/10/22 at 0900, Until Discontinu ed, Routine levothyroxi Yes 50ug 50 mcg, Uni vers ne 02-10 Oral, ity of (SYNTHROID) 11:00: QAM-0600, [place] tablet 50 00 First dose Medi uriel mcg on [facility] 02/10/22 at 0600, Until Discontinu ed, Routine morpHINE (2 2021- No 2mg 2 mg, Slow Univers mg/mL) 02-10 IV Push, ity of injection 2 08:45: 08:01 ONCE, 1 [place] mg 00 :00 dose, On [facility] 02/10/22 at 0345, Routine furosemide 0 Yes 20mg 20 mg, IV Un char[place] (LASIX) 02-10 Push, Q8H, ity of injection 04:15: First dose [place] 20 mg 00 on [facility] Medical 02/09/22 at Branch 2315, Until [...] s mg 00 First dose Medical on [facility] Branch 02/09/22 at 2315, Until Discontinu ed, Routine gabapentin 2021-0 Yes 300mg 300 mg, Uni vers (NEURONTIN) 02-10 Oral, BID, it y of capsule 300 04:15: First dose [place] mg 00 on Mon [facility] 02/09/22 at Branch 2315, Until Discontinu ed, Routine sennosides 2021-0 Yes 8.6mg 8.6 mg, Uni vers (SENOKOT) 02-10 Oral, BID, ity of tablet 8.6 04:15: First dose [place] mg 00 on Mon [facility] 02/09/22 at Branch 2315, Until Discontinu ed, [...] IV ity of (D50W) 04:01: Push, PRN, [place] injection 56 Starting Medica l 25 mL on Wed Branch 02/09/22 at 2301, Until Discontinu ed, PIERRE, Blood Glucose < or = 70 mg/dL and patient is unable to swallow or has mental status changes. atorvastati 2021- No [id number] 40mg Take 1 Univers n 40 mg -12 03-23 tablet by ity of tablet 00:00: 04:59 mouth at [place] 00 :00 bedtime Medical for 30 Branch days. metoprolol 2021- No [id number] 12.5mg Take 0.5 Univers succinate - 10-23 tablets by ity of XL 25 mg 24 00:00: 04:59 mouth in [place] hr tablet 00 :00 the Medical morning Branch for 30 days. atorvastati 2021- No [id number] 40mg Take 1 Univers n 40 mg -12 03-23 tablet by ity of tablet 00:00: 04:59 mouth at [place] 00 :00 bedtime Medical for 30 Branch days. metoprolol 2021- No [id number] 12.5mg Take 0.5 Univers succinate 02-1023 tablets [...] at 0215, 1 mL gabapentin 2021- No [id number] 300mg Take 1 Univers 300 mg 11-05 capsule by ity of capsule 00:00: 04:59 mouth 3 [place] 00 :00 (three) Medical times Branch daily for 10 days. gabapentin 2021- No [id number] 300mg Take 1 Univers 300 mg 11-05 capsule by ity of capsule 00:00: 04:59 mouth 3 [place] 00 :00 (three) Medical times Branch daily for 10 days. aspirin 81 2021- No [id number] 81mg Take 1 Univers mg chewable 6-16 07-17 tablet by it y of tablet 00:00: 04:59 mouth [place] 00 :00 daily for Medical 30 days. Branch aspirin 81 2021- No [id number] 81mg Take 1 Univers mg chewable 6-16 07-17 tablet by it y of tablet 00:00: 04:59 mouth [place] 00 :00 daily for Medical 30 days. Branch aspirin 81 2021- No [id number] 81mg Take 1 Univers mg chewable 6-16 07-17 tablet by it y of tablet 00:00: 04:59 mouth [place] 00 :00 daily for Medical 30 days. Branch proMETHazin Yes [id number] 25mg Take 1 Univers e 25 mg 6-03 tablet by ity of tablet 00:00: mouth [place] 00 every 6 Medical (six) Branch hours as needed for Nausea and Vomiting (N/V). proMETHazin Yes [id number] 25mg Take 1 Univers e 25 mg 6-03 tablet by ity of tablet 00:00: mouth [place] 00 every 6 Medical (six) Branch hours as needed for Nausea and Vomiting (N/V). proMETHazin 2021-0 Yes [id number] 25mg Take 1 Univers e 25 mg 6-03 tablet by ity of tablet 00:00: mouth [place] 00 every 6 Medical (six) Branch hours as needed for Nausea and Vomiting (N/V). proMETHazin 2021-0 Yes [id number] 25mg Take 1 Univers e 25 mg 6-03 tablet by ity of tablet 00:00: mouth [place] 00 every 6 Medical (six) Branch hours as needed for Nausea and Vomiting (N/V). proMETHazin 2021-0 Yes [id number] 25mg Take 1 Univers e 25 mg 6-03 tablet by ity of tablet 00:00: mouth [place] 00 every 6 Medical (six) Branch hours as needed for Nausea and Vomiting (N/V). proMETHazin 2021-0 Yes [id number] 25mg Take 1 Univers e 25 mg 6-03 tablet by ity of tablet 00:00: mouth [place] 00 every 6 Medical (six) Branch hours as needed for Nausea and Vomiting (N/V). fenofibrate 2021- No [id number] 134mg Take 1 Univers micronized 10-19- capsule by it y of 134 mg 00:00: 04:59 mouth [place] capsule 00 :00 daily for Medical 30 days. Branch lisinopriL 2021- No [id number] 2.5mg Take 1 Univers 2.5 mg 10-19- tablet by ity of tablet 00:00: 04:59 mouth [place] 00 :00 daily for Medical 30 days. Branch fenofibrate 2021- No [id number] 134mg Take 1 Univers micronized 10-19- capsule by it y of 134 mg 00:00: 04:59 mouth [place] capsule 00 :00 daily for Medical 30 days. Branch lisinopriL 2021- No [id number] 2.5mg Take 1 Univers 2.5 mg 10-19- tablet by ity of tablet 00:00: 04:59 mouth [place] 00 :00 daily for Medical 30 days. Branch fenofibrate 2021- No [id number] 134mg Take 1 Univers micronized -19 12- capsule by it y of 134 mg 00:00: 04:59 mouth [place] capsule 00 :00 daily for Medical 30 days. Branch lisinopriL 2021- No [id number] 2.5mg Take 1 Univers 2.5 mg -19 12- tablet by ity of tablet 00:00: 04:59 mouth [place] 00 :00 daily for Medical 30 days. Branch furosemide 2021- No [id number] 40mg Take 1 Univers 40 mg 5-30 -30 tablet by ity of tablet 00:00: 04:59 mouth [place] 00 :00 every Medical morning Branch and evening for 30 days. apixaban 5 2021- No [id number] 5mg Take 1 Univ ers mg tablet -30 -30 tablet by ity of 00:00: 04:59 mouth 2 [place] 00 :00 (two) Medical times [place] daily for 30 days. Indication s: atrial fibrillati on calcitrioL 2021- No [id number] .5ug Take 1 Univers 0.5 mcg -30 -30 capsule by ity o f capsule 00:00: 04:59 mouth [place] 00 :00 daily for Medical 30 days. [place] insulin NPH 2021- No [id number] 5U inject 5 Univers (HUMULIN N 5-30 -30 Units ity of NPH U-100 00:00: 04:59 under the [place] INSULIN) 00 :00 skin every Medic al 100 unit/mL evening Branc h injection for 30 days. atorvastati 2021- No [id number] 40mg Take 1 Univers n 40 mg 5-30 -30 tablet by ity of tablet 00:00: 04:59 mouth at [place] 00 :00 bedtime Medical for 30 Branch days. carvediloL 2021- No [id number] 3.125mg Take 1 Univers 3.125 mg 5-30 -30 tablet by ity o f tablet 00:00: 04:59 mouth 2 [place] 00 :00 (two) Medical times [place] daily with meals for 30 days. furosemide 2021- No [id number] 40mg Take 1 Univers 40 mg 5-30 [...] s: atrial fibrillati on calcitrioL 2021- No [id number] .5ug Take 1 Univers 0.5 mcg 5-30 06-30 capsule by ity o f capsule 00:00: 04:59 mouth [place] 00 :00 daily for Medical 30 days. Branch insulin NPH 2021- No [id number] 5U inject 5 Univers (HUMULIN N 5-30 06-30 Units ity of NPH U-100 00:00: 04:59 under the [place] INSULIN) 00 :00 skin every Medic al 100 unit/mL evening Branc h injection for 30 days. atorvastati 2021- No [id number] 40mg Take 1 Univers n 40 mg 5-30 06-30 tablet by ity of tablet 00:00: 04:59 mouth at [place] 00 :00 bedtime Medical for 30 Branch days. carvediloL 2021- No [id number] 3.125mg Take 1 Univers 3.125 mg 5-30 06-30 tablet by ity o f tablet 00:00: 04:59 mouth 2 [place] 00 :00 (two) Medical times Branch daily with meals for 30 days. furosemide 2021- No [id number] 40mg Take 1 Univers 40 mg 5-30 [...] s: atrial fibrillati on calcitrioL 2021- No [id number] .5ug Take 1 Univers 0.5 mcg 5-30 06-30 capsule by ity o f capsule 00:00: 04:59 mouth [place] 00 :00 daily for Medical 30 days. Branch insulin NPH 2021- No [id number] 5U inject 5 Univers (HUMULIN N 5-30 06-30 Units ity of NPH U-100 00:00: 04:59 under the [place] INSULIN) 00 :00 skin every Medic al 100 unit/mL evening Branc h injection for 30 days. atorvastati 2021- No [id number] 40mg Take 1 Univers n 40 mg 5-30 -30 tablet by ity of tablet 00:00: 04:59 mouth at [place] 00 :00 bedtime Medical for 30 Branch days. carvediloL 2021- No [id number] 3.125mg Take 1 Univers 3.125 mg 5-30 -30 tablet by ity o f tablet 00:00: 04:59 mouth 2 [place] 00 :00 (two) Medical times Branch daily with meals for 30 days. metFORMIN Yes [id number] 500mg Take 1 U nivers 500 mg 3-02 tablet by ity of tablet 00:00: mouth [place] (two) Medical times Branch daily with meals. metFORMIN Yes [id number] 500mg Take 1 U nivers 500 mg 3-02 tablet by ity of tablet 00:00: mouth [place] (two) Medical times Branch daily with meals. metFORMIN Yes [id number] 500mg Take 1 U nivers 500 mg 3-02 tablet by ity of tablet 00:00: mouth [place] (two) Medical times Branch daily with meals. metFORMIN Yes [id number] 500mg Take 1 U nivers 500 mg 3-02 tablet by ity of tablet 00:00: mouth [place] (two) Medical times Branch daily with meals. metFORMIN Yes [id number] 500mg Take 1 U nivers 500 mg 3-02 tablet by ity of tablet 00:00: mouth [place] (two) Medical times Branch daily with meals. metFORMIN 0 Yes [id number] 500mg Take 1 U nivers 500 mg 3-02 tablet by ity of tablet 00:00: mouth 2 [place] (two) Medical times Branch daily with meals. albuterol Yes [id number] 2{puff} Inhale 2 Univers 90 2-21 Puffs 2 ity of mcg/actuati 00:00: (two) [place] on inhaler 00 times Medical daily. Branch collagenase Yes [id number] Use as Univers 250 2-21 directed ity of unit/gram 00:00: by office Juan J as ointment 00 Medical Branch cyclobenzap Yes [id number] 10mg Take 1 Univers rine 10 mg 2-21 tablet by ity of tablet 00:00: mouth 2 [place] 00 (two) Medical times Branch daily as needed for Muscle Spasms. dextrometho Yes [id number] 10mL Take 10 mL Univers rphan-guaif 2-21 [...] for Pain (scale 4-6). melatonin 3 Yes [id number] 3mg Take 1 Univers mg tablet 2-21 tablet by ity o f 00:00: mouth at [place] 00 bedtime. Medical Branch ondansetron Yes [id number] 4mg Take 1 Univers 4 mg 2-21 tablet by ity of disintegrat 00:00: mouth [place] ing tablet 00 every 8 Medica l (eight) Branch hours as needed for Nausea and Vomiting (N/V). albuterol Yes [id number] 2{puff} Inhale 2 Univers 90 2-21 Puffs 2 ity of mcg/actuati 00:00: (two) [place] on inhaler 00 times Medical daily. Branch collagenase Yes [id number] Use as Univers 250 2-21 directed ity of unit/gram 00:00: by office [place] J as ointment 00 Medical Branch cyclobenzap Yes [id number] 10mg Take 1 Univers rine 10 mg 2-21 tablet by ity of tablet 00:00: mouth 2 [place] 00 (two) Medical times Branch daily as needed for Muscle Spasms. dextrometho Yes [id number] 10mL Take 10 mL Univers rphan-guaif 2-21 [...] for Pain (scale 4-6). melatonin 3 Yes [id number] 3mg Take 1 Univers mg tablet 2-21 tablet by ity o f 00:00: mouth at [place] 00 bedtime. Medical Branch ondansetron Yes [id number] 4mg Take 1 Univers 4 mg 2-21 tablet by ity of disintegrat 00:00: mouth [place] ing tablet 00 every 8 Medica l (eight) Branch hours as needed for Nausea and Vomiting (N/V). albuterol Yes [id number] 2{puff} Inhale 2 Univers 90 2-21 Puffs 2 ity of mcg/actuati 00:00: (two) [place] on inhaler 00 times Medical daily. Branch collagenase Yes [id number] Use as Univers 250 2-21 directed ity of unit/gram 00:00: by office [place] J as ointment 00 Medical Branch cyclobenzap Yes [id number] 10mg Take 1 Univers rine 10 mg 2-21 tablet by ity of tablet 00:00: mouth 2 [place] 00 (two) Medical times Branch daily as needed for Muscle Spasms. dextrometho Yes [id number] 10mL Take 10 mL Univers rphan-guaif 2-21 [...] for Pain (scale 4-6). melatonin 3 Yes [id number] 3mg Take 1 Univers mg tablet 2-21 tablet by ity o f 00:00: mouth at [place] 00 bedtime. Medical Branch ondansetron Yes [id number] 4mg Take 1 Univers 4 mg 2-21 tablet by ity of disintegrat 00:00: mouth [place] ing tablet 00 every 8 Medica l (eight) Branch hours as needed for Nausea and Vomiting (N/V). albuterol Yes [id number] 2{puff} Inhale 2 Univers 90 2-21 Puffs 2 ity of mcg/actuati 00:00: (two) [place] on inhaler 00 times Medical daily. Branch collagenase Yes [id number] Use as Univers 250 2-21 directed ity of unit/gram 00:00: by office [place] J as ointment 00 Medical Branch cyclobenzap Yes [id number] 10mg Take 1 Univers rine 10 mg 2-21 tablet by ity of tablet 00:00: mouth 2 [place] 00 (two) Medical times Branch daily as needed for Muscle Spasms. melatonin 3 Yes [id number] 3mg Take 1 Univers mg tablet 2-21 tablet by ity o f 00:00: mouth at [place] 00 bedtime. Medical Branch ondansetron Yes [id number] 4mg Take 1 Univers 4 mg 2-21 tablet by ity of disintegrat 00:00: mouth [place] ing tablet 00 every 8 Medica l (eight) Branch hours as needed for Nausea and Vomiting (N/V). albuterol Yes [id number] 2{puff} Inhale 2 Univers 90 2-21 Puffs 2 ity of mcg/actuati 00:00: (two) [place] on inhaler 00 times Medical daily. Branch collagenase Yes [id number] Use as Univers 250 2-21 directed ity of unit/gram 00:00: by office [place] J as ointment 00 Medical Branch cyclobenzap Yes [id number] 10mg Take 1 Univers rine 10 mg 2-21 tablet by ity of tablet 00:00: mouth 2 [place] 00 (two) Medical times Branch daily as needed for Muscle Spasms. melatonin 3 Yes [id number] 3mg Take 1 Univers mg tablet 2-21 tablet by ity o f 00:00: mouth at [place] 00 bedtime. Medical Branch ondansetron Yes [id number] 4mg Take 1 Univers 4 mg 2-21 tablet by ity of disintegrat 00:00: mouth [place] ing tablet 00 every 8 Medica l (eight) Branch hours as needed for Nausea and Vomiting (N/V). albuterol Yes [id number] 2{puff} Inhale 2 Univers 90 2-21 Puffs 2 ity of mcg/actuati 00:00: (two) [place] on inhaler 00 times Medical daily. Branch collagenase Yes [id number] Use as Univers 250 2-21 directed ity of unit/gram 00:00: by office [place] J as ointment 00 Medical Branch cyclobenzap Yes [id number] 10mg Take 1 Univers rine 10 mg 2-21 tablet by ity of tablet 00:00: mouth 2 [place] 00 (two) Medical times Branch daily as needed for Muscle Spasms. melatonin 3 Yes [id number] 3mg Take 1 Univers mg tablet 2-21 tablet by ity o f 00:00: mouth at [place] 00 bedtime. Medical Branch ondansetron Yes [id number] 4mg Take 1 Univers 4 mg 2-21 tablet by ity of disintegrat 00:00: mouth [place] ing tablet 00 every 8 Medica l (eight) Branch hours as needed for Nausea and Vomiting (N/V). dextrometho 2021- No [id number] 10mL Take 10 mL Univers rphan-guaif 07-12 [...] Brooke Frankel 00:00: 00:00 Patient 00 :00 [facility] Diflunisal Diflunisal 2015- No Todd Wynn [address] [facility] (Dolobid) (Dolobid) 01-17 [facility] 500 Mg 500 Mg 00:00: 00:00 Patient Tablet, 500 Tablet, 500 00 :00 M edical Mg Oral Mg Oral Center Ondansetron Ondansetron 2015- No Todd Wynn [address] [facility] Hcl 01-17 [place] as Luke s (Zofran*) 4 (Zofran*) 4 [...] Yes [address] [facility] Mesylate Mesylate [facility] (Cardura) 8 (Cardura) 8 [...] [facility] nophen nophen needed for Patie nt ([place] [facility] 10-325 10-325 Center Tablet) 1 [...] ukes Mg Tablet Mg Tablet Patie nt [facility] Nitroglycer Nitroglycer Yes As Needed [facility] in [facility] (Nitrostat) (Nitrostat) P atient 0.4 Mg 0.4 Mg Medical Tab.subl Tab.subl Center Omeprazole Omeprazole Yes [address] 20 Mg 20 Mg [facility] Capsule.dr Lind. [facility] Simvastatin Simvastatin Yes [address] 80 Mg 80 Mg [facility] Tablet Tablet Patient [facility] Tamsulosin Tamsulosin Yes Daily [facility] Hcl 0.4 Mg Hcl 0.4 Mg Esme es Cap.er.24h Cap.er.24h [facility] Tramadol Tramadol Yes [address] Hcl Hcl Daily as [facility] (Ultram) 50 (Ultram) 50 needed for Patient Mg Tablet Mg Tablet Pain Medic al Center Venlafaxine Venlafaxine Yes [address] [address] [facility]cl 75 Mg Hcl 75 Mg [facility] Tab Tab Patient [facility] Albuterol Albuterol 2017- No 1 [...] 06-17 [facility] Capsule., Capsule., 00:00 Patient :00 [facility] Insulin Insulin 90 Twice A [facility] [...] 25 Mg Oral 25 Mg Oral :00 [facility] Albuterol Albuterol As Needed [facility] Sulfate Sulfate 11-23 as needed Esme es (Ventolin (Ventolin 00:00 for Manjula ent Hfa) 18 Gm Hfa) 18 Gm :00 [facility] Medical Hfa.aer.ad, Hfa.aer.ad, Of Breath [place] 90 Mcg 90 Mcg Inhalation Inhalation Dicyclomine Dicyclomine Twice A [facility] 10 Mg Hcl 10 Mg 11-23 Day Luke s Capsule, 10 Capsule, 10 00:00 Patient Mg Oral Mg Oral :00 [facility] Methocarbam Methocarbam [address] [...] Mg Oral 600 Mg Oral :00 M [facility] Pregabalin Pregabalin 2013- No 150 [...] Immunizations Ordered Filled Immunization Date Status Comments [facility] e Immunization Name Name Influenza Virus [...] [facility] SARS-COV-2 COVID-19 2020-10-16 Completed Unive ity of PEDRO/J&J VACCINE 00:00:00 [facility] Completed University o f Polysaccharide, 00:00:00 [place] [facility] PPSV23 (PNEUMOVAX) [place] Influenza Virus 2018-02-18 Completed Universit y of Vaccine 00:00:00 [facility] Pneumococcal 2018-02-18 Completed University o f Polysaccharide, 00:00:00 [place] [facility] PPSV23 (PNEUMOVAX) [place] Influenza Virus 2018-02-18 Completed Universit y of Vaccine 00:00:00 [facility] Pneumococcal 2018-02-18 Completed University o f Polysaccharide, 00:00:00 [place] [facility] PPSV23 (PNEUMOVAX) Branch Influenza Virus 2018-02-18 Completed Universit y of Vaccine 00:00:00 [facility] Pneumococcal 2018-02-18 Completed University o f Polysaccharide, 00:00:00 [place] [facility] PPSV23 (PNEUMOVAX) Branch Influenza Virus 2018-02-18 Completed Universit y of Vaccine 00:00:00 [facility] Pneumococcal 2018-02-18 Completed University o f Polysaccharide, 00:00:00 [place] [facility] PPSV23 (PNEUMOVAX) Branch Influenza Virus 2018-02-18 Completed Universit y of Vaccine 00:00:00 [facility] Pneumococcal 2018-02-18 Completed University o f Polysaccharide, 00:00:00 [place] [facility] PPSV23 (PNEUMOVAX) Branch Influenza Virus 2008-03-19 Completed Universit y of Vaccine 00:00:00 [facility] Pneumococcal 2008-03-19 Completed University o f Polysaccharide, 00:00:00 [place] [facility] PPSV23 (PNEUMOVAX) Branch Influenza Virus 2008-03-19 Completed Universit y of Vaccine 00:00:00 [facility] Pneumococcal 2008-03-19 Completed University o f Polysaccharide, 00:00:00 [facility] ical PPSV23 (PNEUMOVAX) Branch Influenza Virus 2008-03-19 Completed Universit y of Vaccine 00:00:00 [facility] Pneumococcal 2008-03-19 Completed University o f Polysaccharide, 00:00:00 [facility] ical PPSV23 (PNEUMOVAX) Branch Influenza Virus 2008-03-19 Completed Universit y of Vaccine 00:00:00 [facility] Pneumococcal 2008-03-19 Completed University o f Polysaccharide, 00:00:00 [place] [facility] PPSV23 (PNEUMOVAX) Branch Influenza Virus 2008-03-19 Completed Universit y of Vaccine 00:00:00 [facility] Pneumococcal 2008-03-19 Completed University o f Polysaccharide, 00:00:00 [place] [facility] PPSV23 (PNEUMOVAX) Branch Influenza Virus 2008-03-19 Completed Universit y of Vaccine 00:00:00 [facility] Pneumococcal 2008-03-19 Completed University o f Polysaccharide, 00:00:00 [place] [facility] PPSV23 (PNEUMOVAX) [place] Vital Signs Vital Name Observation Time Observation Value Comments Source Systolic blood 2022-02-10 105 mm[Hg] University of pressure 16:35:00 [facility] Diastolic blood 2022-02-10 57 mm[Hg] University o f pressure 16:35:00 [facility] Heart rate 2022-02-10 65 /min University of 16:35:00 [facility] Body temperature 2022-02-10 36.22 Sandy University of 16:35:00 [facility] Respiratory rate 2022-02-10 18 /min University of 16:35:00 [facility] Oxygen saturation 2022-02-10 98 /min University of in Arterial blood 16:35:00 [place] [facility]iel by Pulse oximetry Branch Body [...] 69 mm[Hg] University o f pressure 23:00:00 [facility] Heart rate 2021-11-09 72 /min University of 23:00:00 [facility] Respiratory rate 2021-11-09 25 /min University of 23:00:00 [facility] Oxygen saturation 2021-11-09 98 /min University of in Arterial blood 23:00:00 [facility] uriel by Pulse oximetry Branch Body temperature 2021-11-09 37.22 [place] University of 20:28:39 [facility] [place] [facility] Body height 2021-11-09 170.2 cm University of 20:16:00 [facility] Body weight 2021-11-09 71.215 kg University of 20:16:00 [facility] BMI 2021-11-09 24.59 kg/m2 University of 20:16:00 [facility] Systolic blood 2021-11-05 134 mm[Hg] University of pressure 10:00:00 [facility] Diastolic blood 2021-11-05 78 mm[Hg] University o f pressure 10:00:00 [facility] Heart rate 2021-11-05 81 /min University of 10:00:00 [facility] Body temperature 2021-11-05 36.28 [place] University of 08:10:00 [facility] Respiratory rate 2021-11-05 18 /min [facility] 08:00:00 [facility] Oxygen saturation 2021-11-05 99 /min [facility] Arterial blood 08:00:00 [facility] by Pulse oximetry [place] Body height 2021-11-05 170.2 cm [facility] 05:48:00 [facility] Body weight 2021-11-05 71.215 kg [facility] 05:48:00 [facility] BMI 2021-11-05 24.59 kg/m2 [facility] 05:48:00 [facility] Procedures Procedure Date / Time Performing Clinician Source Performed INSURANCE CORRESPONDENCE 2022-04-19 06:01:00 Doctor Unassigned, [facility] [place] [facility] TRANSTHORACIC ECHO (TTE) 2022-02-10 13:16:00 Martha Rowe [facility] COMPLETE W/ CONTRAST Medical Bra nch PHOSPHORUS 2022-02-10 10:22:00 Martha Rowe [facility] MAGNESIUM 2022-02-10 10:22:00 Martha Rowe [facility] TROPONIN I 2022-02-10 10:22:00 Martha Rowe [facility] COMP. METABOLIC PANEL 2022-02-10 10:22:[address] [facility] ([id number]) [facility] CBC WITH DIFF 2022-02-10 10:22:00 Martha Rowe [facility] CREATINE KINASE 2022-02-10 04:37:00 Martha Rowe [facility] URIC ACID 2022-02-10 04:37:00 Martha Rowe [facility] FERRITIN SERUM 2022-02-10 04:37:00 Martha Roew [facility] FOLATE 2022-02-10 04:37:00 Martha Rowe [facility] TROPONIN I 2022-02-10 04:37:00 Martha Rowe [facility] THYROID STIMULATING 2022-02-10 04:37:00 Martha Rowe [facility] HORMONE Medical Branch LIPID PANEL ([id number])(TOTAL 2022-02-10 04:37:00 Martha Rowe [facility] CHOLESTEROL, Medical Branch TRIGLYCERIDES, HDL) IRON PANEL 2022-02-10 04:37:00 Martha Rowe [facility] GLYCOSYLATED HEMOGLOBIN 2022-02-10 04:37:00 Martha Rowe [facility] (A1C) [facility] N-TERMINAL PRO-BNP 2022-02-10 04:37:00 Martha Rowe [facility] VITAMIN D, 25-OH 2022-02-10 04:37:00 Jae daisy [facility] COVID-19 (ID NOW RAPID 2022-02-10 04:37:00 Martha Rowe [facility] TESTING) [facility] B-TYPE NATRIURETIC FACTOR 2022-01-30 18:10:00 CH I [facility] (BNP) Center XR CHEST 1 VW 2021-11-09 21:07:00 Troy Ku Mckenzie [facility] POCT GLUCOSE (AUTOMATED) 2021-11-09 20:25:00 Troy Ku [facility] MAGNESIUM 2021-11-09 20:19:00 Troy Ku [facility] TROPONIN I 2021-11-09 20:19:00 Troy Ku [facility] COMP. METABOLIC PANEL 2021-11-09 20:19:[address] [facility] ([id number]) [facility] CBC WITH DIFF 2021-11-09 20:19:00 Troy Ku [facility] N-TERMINAL PRO-BNP 2021-11-09 20:19:00 Troy Ku [facility] XR CHEST 1 VW 2021-11-05 06:38:35 Mihaela Martin [facility] [id number] 2020-08-11 00:00:00 ALDMO [facility] [id number] 2020-08-11 00:00:00 ALDMO [facility] [id number] 2020-08-11 00:00:00 ALDMO [facility] [id number] 2020-08-11 00:00:00 ALDMO [facility] La [facility] Computed tomography 2017-10-24 00:00:[address] L kashif Patient angiography of brain Medical Agustin ter CT angiography of chest 2017-10-23 00:00:00 KHAI WAHL V C HI [facility] Patient Medical Center Computed tomography of 2017-10-23 00:00:00 KHAI WAHL V [facility] I [facility] Patient brain without radiopaque Medical Center contrast [...] Clinicians Facility Department ID 2021-06-17 Outpatient 3 [id number] ENCKY MALDONADO [id number] [facility] 10:24:03 [id number] [facility] 2021-06-17 Outpatient 3 [id number] ENCKY REF [id number] [facility] 10:22:04 [id number] [facility] itation [place] 2021-03-22 Emergency [facility] [id number] Univers 15:25:20 ity of [facility] 2021-03-22 Emergency [facility] [id number] Univers 10:56:41 ity of [facility] 2021-03-21 Emergency [facility] [id number] Univers 18:15:08 ity of [facility] 2021-03-21 Emergency [facility] [id number] Univers 17:18:22 ity of [facility] 2021-03-21 Emergency [facility] [id number] Univers 12:58:19 ity of [facility] 2021-03-21 Emergency [facility] [id number] Univers 04:06:22 ity of [facility] 2021-03-21 Emergency [facility] [id number] Univers 00:12:27 ity of [facility] 2021-03-20 Emergency [facility] [id number] Univers 00:55:44 ity of [facility] 2021-03-19 Emergency [facility] [id number] Univers 17:28:47 ity of [facility] 2021-03-19 Emergency [facility] [id number] Univers 03:16:03 ity of [facility] 2021-03-18 Emergency [facility] [id number] Univers 13:56:50 ity of [facility] 2020-08-23 Inpatient HCACL FERNANDO [id number] [facility] 17:41:00 84 [facility] 2020-04-04 Inpatient Marko, HCAMN HCAMN [id number] [facility] 14:40:00 Edward 33 [facility] 2019-10-15 Inpatient RADHA Shah, HCAPM ENDO [id number] [facility] 15:30:00 Finn [address] [facility] 2022-04-19 2022-04-19 Orders Doctor JOSE 1.2.840.114 [id number] Univers 00:00:00 00:00:00 Only Unassigned, [place] [id number] [facility] [id number] Juan J as [phone] [facility] 009 Branch 2022-02-11 2022-02-11 Transition LATRICE Harding 1.2.840.114 [id number] Univers 00:00:00 00:00:00 of Care Josselyntoni DUQUE [id number] it y of [id number] [phone] [facility] 403 Branch 2022-02-09 2022-02-10 Outpatient U JAE SCSCOTT DARIUS [id number] Univers 19:53:00 13:45:00 MARTHA ity of [facility] 2022-02-09 2022-02-10 Hospital Ana Maria Meza [place] 1.2.840.114 [id number] Univers 19:53:00 13:45:00 Encounter Martha Rowe [id number] ity of [id number] [phone] [facility] 081 Branch 2022-01-30 2022-01-30 Lab [facility] [id number] 00:00:00 00:00:00 Requisitio Esme [facility] 2021-11-09 2021-11-09 Emergency X HEBERT, Troy RUST ERT [id number] Univers 15:15:00 18:32:00 ity of [facility] 2021-11-09 2021-11-09 Emergency Troy Ku RUST 1.2.840.114 [id number] Univers 15:15:00 18:32:00 Mckenzie PEREZ [id number] i ty of [facility] [id number] [facility] [phone] [facility] 084 Branch 2021-11-05 2021-11-05 Emergency [facility] ERT [id number] Univers 00:44:00 06:53:00 MIHAELA baugh [facility] 2021-11-05 2021-11-05 Emergency Dremauri, RUST [id number] Univers 00:44:00 06:53:00 Mihaela PEREZ [id number] ity of [place] [id number] [facility] [phone] [facility] 084 Branch 2021-11-04 2021-11-04 Transition LATRICE Feliciano 1.2.840.114 [id number] Univers 00:00:00 00:00:00 of Care Micaela DUQUE [id number] it y of [place] [id number] [facility] [id number] [facility] 403 Branch 2021-11-02 2021-11-03 Outpatient X BRAYDON, RUST DARIUS [id number] Univers 22:35:00 15:46:00 MICHELLVashti baugh [facility] 2021-11-02 2021-11-03 Emergency Curtis Xavier RUST 1.2.840. 114 [id number] Univers 22:35:00 15:46:00 Oc Bryson [id number] ity [facility] [id number] [facility] [phone] [facility] 081 Branch 2021-11-02 2021-11-03 Out[facility] [id number] Univers 22:35:00 15:46:00 OC baugh [facility] 2021-11-01 2021-11-01 Transition LATRICE Feliciano 1.2.840.114 [id number] Univers 00:00:00 00:00:00 of Care Micaela Aleah [place] [id number] it y of [id number] [id number] [facility] 403 Branch 2021-10-27 2021-10-29 [facility] [id number] Univers 17:41:00 14:03:00 ANA MARIA baugh [facility] 2021-10-27 2021-10-29 Emergency Jameson Mejia RUST 1.2.840. 114 [id number] Univers 17:41:00 14:03:00 Lizett Gerardo [id number] ity of [place] Maria Meza [id number] [facility] [id number] [place] [id number] [place] 2021-10-27 2021-10-29 Outpatient [facility] [id number] Univers 17:41:00 14:03:00 ANA MARIA baugh [facility] 2021-10-21 2021-10-22 Emergency X WILIAN RUST ERT [id number] Univers 20:24:00 04:18:00 JYOTI baugh [facility] 2021-10-21 2021-10-22 Emergency [facility] 1.2.112.082 [id number] Univers 20:24:00 04:18:00 Jyoti PEREZ [id number] i ty umu [id number] [phone] [facility] 084 Branch 2021-10-20 2021-10-20 Transition LATRICE Aleman 1.2.840.114 [id number] Univers 00:00:00 00:00:00 of Care Rico Andrew [place] [id number] [place] of [id number] [id number] [facility] 403 Branch 2021-10-15 2021-10-18 Outpatient X [facility] [id number] Univers 16:42:00 13:52:00 ANA MARIA itvashti [facility] 2021-10-15 2021-10-18 Emergency Jameson Mejia [place] 1.2.840. 114 [id number] Univers 16:42:00 13:52:00 Ana Maria Meza [id number] ity of [id number] [phone] [facility] 081 Branch 2021-07-23 2021-07-23 Transition LATRICE Farooq 1.2.840.114 [id number] Univers 00:00:00 00:00:00 of Care Marcella DUQUE [id number] i ty of [id number] [id number] [address] 2021-07-19 2021-07-22 Inpatient X [facility] DARIUS [id number] Univers 09:10:00 17:00:00 GEOFFREY baugh [facility] 2021-07-19 2021-07-22 [facility] DumontBrandyn garcia RUST 1.2.840.1 14 [id number] Univers 09:10:00 17:00:00 Encounter Geoffrey Hill [facility] [id number] ity of [id number] [phone] [facility] 109 Branch ([facility]) 2021-07-21 2021-07-21 Outpatient [facility] [id number] [facility] 06:58:00 06:58:00 [id number] Family Practic e 2021-07-13 2021-07-13 Transition LATRICE Aleman 1.2.840.114 [id number] Univers 00:00:00 00:00:00 of Care Rico DUQUE [id number] [id number] [id number] [address] 2021-06-28 2021-07-12 Inpatient X REBECCA [place] DARIUS [id number] Univers 10:43:00 18:25:00 AMBIKA baugh [facility] 2021-06-28 2021-07-12 Hospital Jameson Mejia RUST 1.2.840.1 14 [id number] Univers 10:43:00 18:25:00 Encounter Troy uK [id number] ity of Rebecca Ambikaprakash [place] [id number] [facility] [phone] [facility] 081 Branch 2021-02-15 2021-02-15 Outpatient R [facility] [id number] Univers 15:00:00 15:00:00 ALECIA baugh [facility] 2021-01-11 2021-01-11 Outpatient R [facility] [id number] Univers 10:45:00 10:45:00 GINA baugh o f [facility] 2021-01-05 2021-01-05 Transition Latrice Aleman 1.2.840.114 [id number] Univers 00:00:00 00:00:00 of Care Rico Duque [id number] ity of [id number] [phone] [facility] 403 Branch 2021-01-01 2021-01-04 [facility] Wayne Can [place] 1.2.840.1 14 [id number] Univers 14:18:00 18:10:00 Encounter Lizett Gerardo [id number] ity of [id number] [phone] [facility] 081 Branch 2021-01-01 2021-01-01 Orders Doctor GARCIA 1.2.840.114 [id number] Univers 00:00:00 00:00:00 Only Unassigned, [place] [id number] ity of [place] [facility] [id number] Juan J as [phone] [facility] 009 Branch 2020-12-17 2020-12-17 Transition Latrice Harding 1.2.840.114 [id number] Univers 00:00:00 00:00:00 of Care Josselyn Duque [id number] it y of [id number] [phone] [facility] 403 Branch 2020-12-14 2020-12-16 Emergency Jyoti Cedeno S RUST 1.2.840.1 14 [id number] Univers 17:50:00 17:46:00 Ana Maria Meza [id number] ity of [place] 4.2.7.2.686 [facility] [id number] [facility] 081 Branch 2020-11-16 2020-11-16 Orders Doctor JOSE 1.2.840.114 [id number] Univers 00:00:00 00:00:00 Only Unassigned, [place] [id number] [facility] [id number] [facility] [phone] [facility] 009 Branch 2020-10-30 2020-11-05 Inpatient EM [facility] [id number] [facility] 16:50:00 13:52:00 Fede [id number] [facility] 2020-10-31 2020-10-31 Outpatient ANNEL Carrera LABO [id number] [facility] 08:22:00 08:22:00 Fede 73 [facility] 2020-10-28 2020-10-28 Hospital Radiology RUST 1.2.840.114 [id number] Univers 08:30:17 23:59:00 Encounter Sera [id number] ity of [place] 4.2.7.2.686 [facility] [phone] [facility] 807 Branch 2020-10-28 2020-10-28 Hospital Radiology RUST 1.2.840.114 [id number] 08:30:17 23:59:00 Encounter [place] [id number] [place] 4.2.7.2.686 [place] [id number] 2020-10-28 2020-10-28 Outpatient R RADIOLOGY [facility] [id number] Univers 00:00:00 00:00:00 ity of [facility] 2020-10-12 2020-10-12 Office Chantelle RUST 1.2.840.114 [id number] Univers 14:02:10 14:50:48 Visit Bryan Sera [id number] i ty of [id number] Profess[place] [phone] Co dical [facility] 204 [facility] 2020-10-12 2020-10-12 Outpatient R [facility] [id number] Univers 14:00:00 14:50:48 BRYAN ity [facility] 2020-10-12 2020-10-12 Outpatient R [facility] [id number] Univers 14:00:00 14:00:00 [facility] 2020-10-06 2020-10-06 Office [facility] 1.2.840.114 [id number] Univers 10:43:51 11:59:29 Visit Gina Perez [id number] ity of [id number] [phone] Co dical [address] 2020-10-06 2020-10-06 Office [facility] 1.2.840.114 [id number] 10:43:51 11:59:29 Visit Gina Perez [id number] [place] [id number] Professio [id number] [address] 2020-10-06 2020-10-06 Outpatient R [facility] [id number] Univers 10:30:00 10:30:00 GINA palacio [facility] 2020-10-06 2020-10-06 Orders Doctor JOSE 1.2.840.114 [id number] Univers 00:00:00 00:00:00 Only Unassigned, [place] [id number] ity of [place] [facility] [id number] Juan J as [phone] [address] 2020-09-28 2020-09-28 Emergency [facility] 1.2.840.114 [id number] Univers 17:28:00 21:08:00 Óscar Perez [id number] ity of [place] [id number] [facility] [phone] [facility] 084 Branch 2020-09-28 2020-09-28 Transition Latrice French 1.2.840.114 [id number] Univers 00:00:00 00:00:00 of Care Gilda George [id number] it y of [place] [id number] [phone] [facility] 403 Branch 2020-09-23 2020-09-26 [facility] Juan José Wayne R[place] 1.2.840.1 14 [id number] Univers 13:50:00 18:28:00 Encounter Indiaalejandra Ambikachristi Perez [id number] ity of [place] [id number] [facility] [phone] [place] 905241 [place] 2020-09-23 2020-09-26 Inpatient X INDIAALEJANDRA [facility] [id number] Univers 13:50:00 18:28:00 [facility] 2020-09-22 2020-09-22 Outpatient R [facility] [id number] Univers 09:45:00 09:45:00 GINA palacio [facility] 2020-09-10 2020-09-10 Outpatient R [facility] [id number] Univers 16:15:00 16:15:00 BRYAN itvashti [facility] 2020-09-09 2020-09-09 Transition Latrice Aleman 1.2.840.114 [id number] Univers 00:00:00 00:00:00 of Care Rico Andrew Duque 350.1.13.10 [place] [phone] [facility] [address] 2020-09-08 2020-09-08 Outpatient R [facility] [id number] Univers 08:30:00 08:30:00 GINA palacio [facility] 2020-09-02 2020-09-07 [facility] Jose Guy RUST 1.2.840.114 [id number] Univers 16:46:00 18:45:00 [facility] 350. 1.13.10 ity of [place] 4.2.7.2.686 Linda Marixa Kaylyn Mejia [phone] [address] ([facility]) 2020-08-26 2020-08-26 Office [facility] 1.2.840.114 [id number] Univers 10:44:06 11:14:06 Visit [facility] 350.1.13.10 it y of [place] [phone] [address] Office Building 2020-08-26 2020-08-26 Outpatient R [facility] [id number] Univers 10:30:00 10:30:00 ity of [facility] 2020-08-25 2020-08-25 Outpatient R [facility] [id number] Univers 10:00:00 10:00:00 GINA palacio [facility] 2020-08-24 2020-08-24 Outpatient Tim JAIME [facility] [id number] Univers 09:00:00 09:00:00 DEIDRE baugh [facility] 2020-08-21 2020-08-21 Office [facility] 1.2.840.114 [id number] Univers 08:43:52 09:13:46 Visit Gina Sera 350.1.13.10 it[place] of [place] [phone] [place] [address] Branch Building 2020-08-21 2020-08-21 Outpatient Tim [facility] [id number] Univers 08:30:00 08:30:00 GINA palacio [facility] 2020-08-10 2020-08-14 Inpatient ANNEL CareyCL INTE.02 [id number] [facility] 09:09:00 18:56:00 Johnie Reardon [facility] 2020-08-11 2020-08-11 Outpatient Tim HEATH [facility] [id number] Univers 09:15:00 09:15:00 GINA palacio [facility] 2020-08-07 2020-08-07 Outpatient R [facility] [id number] Univers 10:00:00 10:00:00 GINA palacio [facility] 2020-07-27 2020-08-06 [facility] Jameson Mejia 1.2.840.1 14 [id number] Univers 12:13:00 17:15:00 Encounter Minnie Cardona 350.1.13.10 ity of [place] Gerardo [facility] 4.2.7.2.686 [place] Drew Noriega [phone] [facility] Johnie Skinner [address] [place] 2020-07-27 2020-08-06 Inpatient JOHNIE SKINNER [facility] [id number] Univers 12:13:00 17:15:00 ity of [facility] 2020-07-24 2020-07-24 Outpatient R [facility] [id number] Univers 13:00:00 13:00:00 GINA palacio [facility] 2020-07-21 2020-07-21 Transition Latrice Aleman 1.2.840.114 [id number] Univers 00:00:00 00:00:00 of Care Rico Duque 350.1.13.10 ity [facility] 4.2.7.2.686 Noe beckett [phone] [address] 2020-07-10 2020-07-20 [facility] Janeth Leal 1.2.84 0.114 [id number] Univers 19:24:00 21:51:00 Encounter Oc Bryson 350.1.13.10 ity of ElvisJaneth [facility] 4.2.7.2.686 [place] Minnie Cardona [phone] Medical Lisa Marroquin [address] 2020-07-17 2020-07-17 Outpatient R [facility] [id number] Univers 10:00:00 10:00:00 JOSE baugh [facility] 2020-07-10 2020-07-10 Outpatient R [facility] [id number] Univers 08:45:00 08:45:00 GINA palacio [facility] 2020-06-15 2020-06-15 Tele[facility] 1.2.975.856 [id number] Univers 00:00:00 00:00:00 Jose Perez 350.1.13.10 i ty of [place] Profess[place] [phone] Co dical nal [address] Building 2020-06-11 2020-06-11 Office [facility] 1.2.840.114 [id number] Univers 13:43:55 13:58:55 Visit [facility] 350.1.13.10 it y of [place] 4.2.[place].2.686 [place] - [phone] Med ical [facility] 188 [address] 2020-06-11 2020-06-11 Outpatient R [facility] [id number] Univers 13:30:00 13:30:00 JOSE amauri [facility] 2020-06-03 2020-06-03 Transition Latrice Aleman 1.2.840.114 [id number] Univers 00:00:00 00:00:00 of Care Rico Duque 350.1.13.10 [place] [phone] [facility] [address] 2020-05-29 2020-06-02 [facility] Jameson Mejia RUST 1.2.840.1 14 [id number] Univers 09:12:00 16:02:00 Encounter Lizett Gerardo 350.1.13.10 ity of [place] 4.2.7.2.686 [facility] [phone] [facility] 081 [address] 2020-05-29 2020-06-02 Inpatient X JAE [facility] [id number] Univers 09:12:00 16:02:00 MARTHA baugh [facility] 2020-05-29 2020-05-29 Outpatient R JANKI [facility] [id number] Univers 10:15:00 10:15:00 JOSE baugh [facility] 2020-04-23 2020-04-23 Office [facility] 1.2.840.114 [id number] Univers 13:48:18 14:03:18 Visit [facility] 350.1.13.10 it y of [place].2.7.2.686 [place] [facility] [phone] [facility] [address] [place] 2020-04-23 2020-04-23 Outpatient R [facility] [id number] Univers 13:30:00 13:30:00 JOSE baugh [facility] 2020-04-23 2020-04-23 Orders Doctor JOSE 1.2.840.114 [id number] Univers 00:00:00 00:00:00 Only Unassigned, [place] 350.1.13.10 ity of [place] [facility] 4.2.7.2.686 Juan J as [phone] [facility] [address] [place] 2020-04-09 2020-04-09 Office [facility] 1.2.840.114 [id number] Univers 13:58:45 14:13:45 Visit [facility] 350.1.13.10 it y of [place]ip [place] 4.2.7.2.686 [facility] [phone] [address] 2020-04-09 2020-04-09 Outpatient R [facility] [id number] Univers 14:00:00 14:00:00 JOSE baugh [facility] 2020-03-27 2020-03-27 Transition Latrice Aleman 1.2.840.114 [id number] Univers 00:00:00 00:00:00 of Care Rico Duque 350.1.13.10 ity of [place] 4.2.7.2.686 [facility] [phone] [facility] 403 [address] 2020-03-15 2020-03-26 Hospital Jameson Mejia 1.2.840.1 14 [id number] Univers 23:48:00 18:02:00 Encounter Kandis Hough 350.1.13.10 ity of Janki [facility] 4.2.7.2.68 6 [place] [phone] [facility] 098 [address] 2020-03-18 2020-03-18 Anesthesia Caio Najera 1. 2.840.114 [id number] Univers 13:52:00 16:42:00 FranksStephanie beckett [place] 350.1.13.10 ity of Hospital 4.2.7.2.686 Juan J as [phone] [facility] 103 [address] 2020-02-06 2020-02-06 Transition Latrice Aleman 1.2.840.114 [id number] Univers 00:00:00 00:00:00 of Care Rico Duque 350.1.13.10 [place] [phone] [facility] [address] 2020-02-03 2020-02-05 Hospital Óscar Hermosillo RUST 1.2.8 40.114 [id number] Univers 16:55:00 20:40:00 Encounter Martha Rowe 350.1.13.10 ity of [place].2.[place] [phone] [facility] 081 [address] 2020-01-17 2020-01-17 Outpatient R [facility] [id number] Univers 13:30:00 13:30:00 SENDIL ity of [facility] 2019-12-02 2019-12-02 Outpatient R [facility] [id number] Univers 15:00:00 15:00:00 ity of [facility] 2019-11-16 2019-11-21 Hospital Lopez Velazquez RUST 1.2.840 .114 [id number] Univers 16:35:23 14:12:00 Encounter Heather Hermosillo 350.1.13.1 0 ity of [place] 4.2.[place].2.[place] [phone] [place] [address] Branch 2019-09-17 2019-09-18 Emergency [facility] 1.2.046.398 [id number] Univers 20:30:04 00:41:00 Valery Perez 350.1.13.10 ity of [place].2.[place].2.[place] [phone] [place] [address] [address] 2019-09-17 2019-09-18 Emergency X [facility] ERT [id number] Univers 20:30:04 00:41:00 VALERY ity [facility] 2019-09-05 2019-09-05 Outpatient R [facility] [id number] Univers 14:00:00 14:00:00 SENDIL ity [facility] 2019-09-05 2019-09-05 Telemedici [facility] 1.2.840.114 [id number] Univers 08:17:17 08:47:17 ne Visit Sendil Hannah Perez 350.1.13.10 ity of [place] [phone] Co dical nal 059 [facility] 2019-09-05 2019-09-05 Telephone [facility] 1.2.465.584 [id number] Univers 00:00:00 00:00:00 Sendil Hannah Perez 350.1.13.10 ity of [place].2.[place] [phone] Co dical nal [address] [place] [address] 2019-09-03 2019-09-03 Outpatient R [facility] [id number] Univers 10:30:00 10:30:00 SENDIL ity [facility] 2019-08-20 2019-08-20 Telephone [facility] 1.2.944.790 [id number] Univers 00:00:00 00:00:00 Nika SHAW 350.1.13.10 ity of [place]2.[place].2.[place] [facility] [phone] Co dical [address] [place] 2019-08-19 2019-08-19 Refill Nancy Lee 1.2.840.114 [id number] Univers 00:00:00 00:00:00 Lola Figueroa 350.1.13.10 it y of Hospital 4.2.7.2.686 Juan J as [phone] [facility] [address] [place] 2019-08-16 2019-08-16 Refill Nancy Lee 1.2.840.114 [id number] Univers 00:00:00 00:00:00 Lola [place] 350.1.13.10 it y of Hospital 4.2.7.2.686 Juan J as [phone] [facility] 0[address] 2019-08-15 2019-08-15 [facility] 1.2.840.114 [id number] Univers 11:58:21 15:28:00 Demarcus Perez 350.1.13.10 i ty of [place] 4[place]2.[place].2.[place] [phone] [facility] 084 Branch 2019-08-15 2019-08-15 Emergency X LUIS, RUST ERT [id number] Univers 11:58:21 15:28:00 SHINTA ity of [facility] 2019-08-15 2019-08-15 Case JOSE Castillo 1.2.840.114 [id number] Univers 00:00:00 00:00:00 Management Ninfa FIGUEROA 350.1.13.10 ity of [facility] 4.2.7.2.686 Juan J as [phone] [facility] 008 [address] 2019-08-15 2019-08-15 Telephone Anna RUST 1.2.224.378 [id number] Univers 00:00:00 00:00:00 Ninfa Perez 350.1.13.10 ity of [place] [facility] [phone] Co dical nal 059 [facility] 2019-08-12 2019-08-12 Transition Latrice Ramirez 1.2.840.114 [id number] Univers 00:00:00 00:00:00 of Care Joan Duque 350.1.13.10 [place].2.[place] [phone] [facility] [address] 2019-08-06 2019-08-09 Emergency CanWayne RUST 1.2.840. 114 [id number] Univers 14:06:47 15:19:00 Lizett Gerardo 350.1.13.10 ity of [place] 4.2.[place].2.[place] [phone] [facility] 0[address] 2019-08-06 2019-08-09 Outpatient X HUMAIRA [facility] [id number] Univers 14:06:47 15:19:00 LIZETT ity of [facility] 2019-08-06 2019-08-06 Outpatient R TRAVIS, [facility] [id number] Univers 13:30:00 13:30:00 RICHMOND baugh o f [facility] 2019-08-06 2019-08-06 Outpatient R TRAVIS, [facility] [id number] Univers 11:00:00 11:00:00 RICHMOND baugh o f [facility] 2019-08-06 2019-08-06 Outpatient R TRAVIS, [facility] [id number] Univers 11:00:00 11:00:00 RICHMOND baugh o f [facility] 2019-08-06 2019-08-06 Orders Doctor JOSE 1.2.840.114 [id number] Univers 00:00:00 00:00:00 Only Unassigned, [place] 350.1.13.10 ity of [place] [facility] 4.2.7.2.686 Juan J as [phone] [facility] 009 [address] 2019-07-19 2019-07-19 Transition Latrice French 1.2.840.114 [id number] Univers 00:00:00 00:00:00 of Care Gilda Duque 350.1.13.10 it [place] [phone] [facility] [address] 2019-07-17 2019-07-18 Emergency Valery Carrillo S Nancy 1.2.840 .114 [id number] Univers 21:36:10 21:05:00 Suzanne-Josy Kendra [place] 350.1.13.1 0 ity of Hospital 4.2.7.2.686 Juan J as [phone] [facility] 090 [address] 2019-07-17 2019-07-18 Outpatient X Poppy-JOSYKENDRA [facility] [id number] Univers 21:36:10 21:05:00 SUZANNE-JOSY TRACEEQ ity of [facility] 2019-07-03 2019-07-03 Transition Latrice French 1.2.840.114 [id number] Univers 00:00:00 00:00:00 of Care Gilda Duque 350.1.13.10 it [place] 4[place]2.7.2.[place] [phone] [facility] [address] 2019-07-01 2019-07-01 Transition Latrice French 1.2.840.114 [id number] Univers 00:00:00 00:00:00 of Care Gilda Duque 350.1.13.10 it [place] [phone] [facility] 403 [address] 2019-06-27 2019-06-27 Transition Latrice French 1.2.840.114 [id number] Univers 00:00:00 00:00:00 of Care Gilda Duque 350.1.13.10 it [place].2.[place] [phone] [facility] [address] 2019-06-24 2019-06-26 Inpatient X CASPER, [facility] [id number] Univers 14:51:01 18:37:00 MICHAEL ity [facility] 2019-06-24 2019-06-26 [facility] Janeth Leal 1.2.84 0.114 [id number] Univers 14:51:01 18:37:00 Encounter Michael Shirley 350.1.1 3.10 ity of [facility] 4.2.7.2.686 Juan J as [phone] [facility] 0[address] 2019-02-06 2019-02-06 Telephone JOSE Bhatt 1.2.840.114 [id number] Univers 00:00:00 00:00:00 Cortney FIGUEROA 350.1.13.10 i ty of [facility] 4.2.7.2.686 Juan J as [phone] [facility] 008 [address] 2019-02-05 2019-02-05 Emergency [facility] 1.2.475.008 [id number] Univers 17:30:29 21:52:00 Jyoit Perez 350.1.13.10 i ty of [place] 4.2.[place].2.[place] [phone] [facility] 084 [address] 2019-01-30 2019-01-30 Transition Latrice Quevedo 1.2.840.114 [id number] Univers 00:00:00 00:00:00 of Care Rhonda Duque 350.1.13.10 it [place] 4.2.[place].2.[place] [phone] [facility] [address] 2019-01-24 2019-01-29 [facility] Wayne Can 1.2.840.1 14 [id number] Univers 16:01:37 14:55:00 Encounter Dennis Finley 350.1.13.10 ity of [facility] 4.2.7.2.686 Juan J as [phone] [place] 9[address] Branch 2019-01-22 2019-01-22 Transition Latrice Quevedo 1.2.840.114 [id number] Univers 00:00:00 00:00:00 of Care Rhonda Duque 350.1.13.10 it [place].2.[place] [phone] [facility] 403 [address] 2019-01-16 2019-01-19 [facility] Carlos Allen 1.2.840.11 [id number] Univers 23:52:03 14:36:00 Encounter Jae Martha Figueroa 350.1.13.10 ity of [place], Dennis polo 4.2.7.2.686 [place] [phone] [place] 9[address] Branch 2017-10-23 2017-10-[address] [facility] [id number] 17:29:00 16:54:00 Inpatient ALEXIS 90 Luke s Ltac, Located [facility] 2017-04-03 2017-04-04 [id number] 23:17:00 03:53:00 Emergency LAIRD 56 Luke s Room Ltac, Located [facility] 2017-03-05 2017-03-09 Discharged ER PHILIP, [facility] [id number] 06:54:00 10:58:00 Inpatient NICHELLE 44 Luke s (obs) Patient [facility] 2017-01-04 2017-01-[address] [facility] [id number] 10:33:00 18:56:00 Inpatient 63 Luke s (obs) Ltac, [facility]ated [facility] Orders Doctor JOSE 1.2.840.114 [id number] Univers 00:00:00 00:00:00 Only Unassigned, [place] 350.1.13.10 ity of [place] [facility] 4.2.7.2.686 Juan J as [phone] Medi uriel 009 Branch Results Test Description Test Time Test Comments Results Result Comments Source Transthoracic echo (TTE) 2022-02-10 17:43:07 Test Item Value Reference Range Interpretation Comme nts Height (test code = 5523798895) in Weight (test code = 3412044051) lbs Systolic BP (test code = 3996852000) mmHg Diastolic BP (test code = 2048017152) mmHg Heart Rate (test code = 0759345881) bpm BSA (test code = 4430150347) 1.86 m2 Ao root diam (test code = 8428373079) 3.10 cm Aortic root (test code = 9019435395) 3.1 cm Ao root annulus (test code = 3.1 cm 9046519891) LVOT diameter (test code = 1.83 cm 6942967812) LVOT area (test code = 5817696234) 2.60 cm2 LVIDD (test code = 4035008282) 4.80 cm Left Ventricular End Diastolic Volume 107.5 mL by Teichholz Method (test code = 3520198) IVS (test code = 5951973892) 1.35 cm Interventricular Septum Diastolic 1.35 cm Thickness by 2D (test code = 0230178) LVPWD (test code = 6026136159) 1.35 cm PW (test code = 6922139874) 1.35 cm 0.6-1.1 EF(Teich) (test code = 2160777220) 30.10 % LVIDS (test code = 5944281451) 4.10 cm Left Ventricular End Systolic Volume 75.1 mL by Teichholz Method (test code = 7631158) FS (test code = 0613577483) 14 % EF - 2D (test code = 64985174) 30.10 % LA size (test code = 7282657142) 4.1 cm TR Peak Haile (test code = 5863390312) 232.4 cm/s Triscuspid Valve Regurgitation Peak mmHg Gradient (test code = 2445969886) LAV(MOD-sp4) (test code = 0723187802) 103.10 mL E wave decelartion time (test code = 0.15 s 1141945566) MV stenosis pressure 1/2 time (test 44.6 ms code = 6025053934) MV Peak E Haile (test code = 110.2 cm/s 3887881300) MV Peak A Haile (test code = 28.7 cm/s 9838379351) E/A ratio (test code = 4740754045) ratio MR max PG (test code = 3225782706) 78.70 mm[Hg] MR max haile (test code = 2427474567) 443.40 cm/s Mr max haile (test code = 1552325806) 443.4 m/s MV Prop V (test code = 9922843381) 45.00 cm/s MV E/e' septal (test code = 9.2 cm/s 2074972388) Tapse (test code = 8137175884) 1.53 cm LVOT stroke volume (test code = 41.70 cm3 7108358909) LVOT peak haile (test code = 87.2 cm/s 1284117617) LVOT mn grad (test code = 6536910960) mmHg AV LVOT peak gradient (test code = mmHg 5259209328) LVOT peak VTI (test code = 15.8 cm 8484810282) LV V1 mean (test code = 6370915140) 51.30 cm/s Aortic valve mean velocity (test code 78.3 cm/s = 1953638516) Ao peak haile (test code = 8018346857) 111.8 cm/s Ao VTI (test code = 8029704528) 21.5 cm AV area by cont VTI (test code = 1.9 cm2 3601638785) AV area peak haile (test code = 2.1 cm2 3108856119) Ao max PG (test code = 6440879413) 5.00 mm[Hg] AV peak gradient (test code = mmHg 5175932125) AV valve area (test code = 1.94 cm2 3706192018) AV mean gradient (test code = mmHg 0706762072) Radiology Study observation (narrative) (test code = 91560-9) DIANE (test code = DIANE) Table formatting [...] lateral and apex.All other segments are normal. [facility] [id number] 12:01:08 Test Item Value Reference Interpretation Comments Range TROPONIN I (test 0.021 ng/mL See_Comment [Automated code = 1656345132) message] The system which generated this result [...] biotin. Lab Interpretation Normal (test code = 08660-1) [facility]22-[facility]-22 11:50:23 Test Item Value Reference Range Interpretation Comments MAGNESIUM (test code = 0603624681) 1.7 mg/dL 1.7-2.4 Lab Interpretation (test code = Normal 83652-8) [facility] MET[facility]OLIC PANEL (90770)2022-02-10 11:50:22 Test Item Value Reference Range Interpretation Comments NA (test code = 138 mmol/L 135-145 3333902264) K (test code = 3.9 mmol/L 3.5-5 7057767245) CL (test code = 108 mmol/L 98-108 0960060251) CO2 TOTAL (test code = 24 mmol/L 23-31 6469068644) AGAP (test code = 2-16 6278449059) BUN (test code = 19 mg/dL 7-23 0433844444) GLUCOSE (test code = 117 mg/dL 70-110 H 7074352581) CREATININE (test code = 0.91 mg/dL 0.6-1.25 4549762571) TOTAL BILI (test code = 1.0 mg/dL 0.1-1.9 8349508168) CALCIUM (test code = 8.5 mg/dL 8.6-10.6 L 8514458884) T PROTEIN (test code = 6.4 g/dL 6.3-8.2 7885470750) ALBUMIN (test code = 3.4 g/dL 3.5-5 L 5943455369) ALK PHOS (test code = 177 U/L 34-122 H 6406094983) ALTv (test code = 24 U/L 5-50 1742-6) AST(SGOT) (test code = 38 U/L 13-40 0120689891) eGFR (test code = mL/min/1.73m2 2758205230) DIANE (test code = DIANE) Association of [...] tests). Lab Interpretation Abnormal (test code = 74068-7) [facility]22-[facility] 11:50:22 Test Item Value Reference Range Interpretation Comments PHOSPHORUS (test code = 4679573150) 5.1 mg/dL 2.5-5 H Lab Interpretation (test code = Abnormal 02349-2) [facility] WITH [id number] 11:19:02 Test Item Value Reference Range Interpretation [...] RDW-SD (test code = 48.0 fL 38.5-51.6 83301-3) RDW-CV (test code = 14.2 % 12.1-15.4 788-0) PLT (test code = See_Comment [Automated 777-3) message] The sy stem which generated this result transmitted reference range : 150 - 328 10*3/ ?L. The reference r batsheva was not used to interpret this result as normal/abnormal . MPV (test code = 10.2 fL 9.8-13 56244-5) NRBC/100 WBC (test See_Comment [Automat ed code = 5680766396) message] The system which generated this result transmitted reference range : 0.0 - 10.0 /100 WBCs. The refer ence range was not u sed to interpret th is result as normal/abnormal . NRBC x10^3 (test code See_Comment [Auto mated = 9770503814) message] The s ystem which generated this result transmitted reference range : 10*3/?L. The reference range was not used to interpret this result as normal/abnormal . GRAN MAT (NEUT) % 68.5 % (test code = 770-8) IMM GRAN % (test code 0.40 % = 8489805072) LYMPH % (test code = 19.0 % 736-9) MONO % (test code = 8.3 % 5905-5) EOS % (test code = 3.4 % 713-8) BASO % (test code = 0.4 % 706-2) GRAN MAT x10^3(ANC) 3.65 10*3/uL 1.99-6.95 (test code = [id number]) IMM GRAN x10^3 (test 0-0.06 code = [id number]) LYMPH x10^3 (test code 1.01 10*3/uL 1.09-3.23 L = 731-0) MONO x10^3 (test code 0.44 10*3/uL 0.36-1.02 = 742-7) EOS x10^3 (test code = 0.18 10*3/uL 0.06-0.53 711-2) BASO x10^3 (test code 0.01-0.09 = 704-7) Lab Interpretation Abnormal (test code = 10667-9) [facility] 23:33:12 Test Item Value Reference Range Interpretation Comments BNP (test code = 98121-6) 443 pg/mL 0-100 H DIANE (test code = DIANE) Respiratory Equipment Assistant ID - [id number] Lab Interpretation (test Abnormal code = 24113-9) [facility] (BNP)2022-01-30 23:33:12 Test Item Value Reference Range Interpretation Comments BNP (test code = 51859-8) 443 pg/mL 0-100 H DIANE (test code = DIANE) Respiratory Equipment Assistant ID - ADRY Lab Interpretation (test Abnormal code = 74893-2) [facility]2022-01-30 23:33:12 Test Item Value Reference Range Interpretation Comments BNP (test code = 23178-6) 443 pg/mL 0-100 H DIANE (test code = DIANE) Respiratory Equipment Assistant ID - ADRY Lab Interpretation (test Abnormal code = 77694-2) [facility]2022-01-30 23:33:12 Test Item Value Reference Range Interpretation Comments BNP (test code = 69537-4) 443 pg/mL 0-100 H DIANE (test code = DIANE) Respiratory Equipment Assistant ID - ADRY Lab Interpretation (test Abnormal code = 42455-6) [facility]2022-01-30 23:33:12 Test Item Value Reference Range Interpretation Comments BNP (test code = 34460-6) 443 pg/mL 0-100 H DIANE (test code = DIANE) Respiratory Equipment Assistant ID - ADRY Lab Interpretation (test Abnormal code = 12521-0) [facility]2022-01-30 23:33:12 Test Item Value Reference Range Interpretation Comments BNP (test code = 50474-7) 443 pg/mL 0-100 H DIANE (test code = DIANE) Respiratory Equipment Assistant ID - ADRY Lab Interpretation (test Abnormal code = 77960-0) [facility]2022-01-30 23:33:12 Test Item Value Reference Range Interpretation Comments BNP (test code = 22317-3) 443 pg/mL 0-100 H DIANE (test code = DIANE) Respiratory Equipment Assistant ID - ADRY Lab Interpretation (test Abnormal code = 31796-7) [facility]2022-01-30 23:33:12 Test Item Value Reference Range Interpretation Comments BNP (test code = 88567-4) 443 pg/mL 0-100 H DIANE (test code = DIANE) Respiratory Equipment Assistant ID - ADRY Lab Interpretation (test Abnormal code = 26943-2) [facility]2022-01-30 23:33:12 Test Item Value Reference Range Interpretation Comments BNP (test code = 82174-7) 443 pg/mL 0-100 H DIANE (test code = DIANE) Respiratory Equipment Assistant ID - ADRY Lab Interpretation (test Abnormal code = 42055-7) [facility]2022-01-30 23:33:12 Test Item Value Reference Range Interpretation Comments BNP (test code = 51421-8) 443 pg/mL 0-100 H DIANE (test code = DIANE) Respiratory Equipment Assistant ID - ADRY Lab Interpretation (test Abnormal code = 68655-0) [facility]2022-01-30 23:33:12 Test Item Value Reference Range Interpretation Comments BNP (test code = 85252-2) 443 pg/mL 0-100 H DIANE (test code = DIANE) Respiratory Equipment Assistant ID - ADRY Lab Interpretation (test Abnormal code = 88098-1) [facility]2022-01-30 23:33:12 Test Item Value Reference Range Interpretation Comments BNP (test code = 05669-4) 443 pg/mL 0-100 H DIANE (test code = DIANE) Respiratory Equipment Assistant ID - ADRY Lab Interpretation (test Abnormal code = 06809-8) [facility]2022-01-30 23:33:12 Test Item Value Reference Range Interpretation Comments BNP (test code = 07396-7) 443 pg/mL 0-100 H DIANE (test code = DIANE) Respiratory Equipment Assistant ID - ADRY Lab Interpretation (test Abnormal code = 91228-6) [facility]NP[facility]2022-01-30 23:33:12 Test Item Value Reference Range Interpretation Comments BNP (test code = 05090-1) 443 pg/mL 0-100 H DIANE (test code = DIANE) Respiratory Equipment Assistant ID - ADRY Lab Interpretation (test Abnormal code = 66403-8) [facility] (BNP)2022-01-30 23:33:12 Test Item Value Reference Range Interpretation Comments B-TYPE NATRIURETIC PEPTIDE (BEAKER) 443 pg/mL 0-100 H (test code = 700) Respiratory Equipment Assistant ID - ADRYTROPONIN [id number] 20:57:59 Test Item Value Reference Interpretation Comments Range TROPONIN I (test 0.017 ng/mL See_Comment [Automated code = 1755508769) message] The system which generated this result [...] biotin. Lab Interpretation Normal (test code = 35117-9) [facility] [id number] 20:54:59 Test Item Value Reference Range Interpretation Comments NT-proBNP (test code 6490 pg/mL See_Comment H [Autom ated = 7136884704) message] The system which generated this result transmitted reference range : <=125. The reference range was not used to interpret this result as normal/abnormal . DIANE (test code = DIANE) Biotin has been reported to cause a negative bias, interpret results relative to patient's use of biotin. Lab Interpretation Abnormal (test code = 84978-6) [facility]2022-06-21 20:46:35 Test Item Value Reference Range Interpretation Comments MAGNESIUM (test code = 3830338281) 1.5 mg/dL 1.7-2.4 L Lab Interpretation (test code = Abnormal 31858-2) [facility]COMP. METABOLIC PANEL (93988)2021-11-09 20:46:34 Test Item Value Reference Range Interpretation Comments NA (test code = 140 mmol/L 135-145 9019545200) K (test code = 3.9 mmol/L 3.5-5.0 5330214266) CL (test code = 111 mmol/L 98-108 H 0219790888) CO2 TOTAL (test code = 16 mmol/L 23-31 L 5884718837) AGAP (test code = 2-16 3800786625) BUN (test code = 14 mg/dL 7-23 7855178429) GLUCOSE (test code = 189 mg/dL 70-110 H 4785971932) CREATININE (test code = 0.66 mg/dL 0.60-1.25 8842102765) TOTAL BILI (test code = 0.8 mg/dL 0.1-1.3 3115916344) CALCIUM (test code = 8.3 mg/dL 8.6-10.6 L 2052578640) T PROTEIN (test code = 6.5 g/dL 6.3-8.2 7636378219) ALBUMIN (test code = 3.3 g/dL 3.5-5.0 L 9921682661) ALK PHOS (test code = 136 U/L 34-122 H 9771107085) ALTv (test code = 18 U/L 5-50 1742-6) AST(SGOT) (test code = 26 U/L 13-40 8024085174) eGFR (test code = mL/min/1.73m2 3519193664) DIANE (test code = DIANE) Association of [...] tests). Lab Interpretation Abnormal (test code = 33014-2) [facility] WITH [id number] 20:33:30 Test Item Value Reference Range Interpretation Comments WBC (test code = See_Comment [Automated 9081-2) message] The sy stem which generated this [...] RDW-SD (test code = 45.4 fL 38.5-51.6 29646-6) RDW-CV (test code = 14.2 % 12.1-15.4 788-0) PLT (test code = See_Comment [Automated 777-3) message] The sy stem which generated this result transmitted reference range : 150 - 328 10*3/ ?L. The reference r batsheva was not used to interpret this result as normal/abnormal . MPV (test code = 9.8 fL 9.8-13.0 83353-1) NRBC/100 WBC (test See_Comment [Automat ed code = 8455975189) message] The system which generated this result transmitted reference range : 0.0 - 10.0 /100 WBCs. The refer ence range was not u sed to interpret th is result as normal/abnormal . NRBC x10^3 (test code <0.01 See_Comment [Auto mated = 6397333030) message] The s ystem which generated this result transmitted reference range : 10*3/?L. The reference range was not used to interpret this result as normal/abnormal . GRAN MAT (NEUT) % 62.3 % (test code = 770-8) IMM GRAN % (test code 0.80 % = 0513882923) LYMPH % (test code = 25.1 % 736-9) MONO % (test code = 6.7 % 5905-5) EOS % (test code = 4.7 % 713-8) BASO % (test code = 0.4 % 706-2) GRAN MAT x10^3(ANC) 4.76 10*3/uL 1.99-6.95 (test code = 7510149515) IMM GRAN x10^3 (test 0.06 10*3/uL 0.00-0.06 code = 9592063959) LYMPH x10^3 (test code 1.92 10*3/uL 1.09-3.23 = 731-0) MONO x10^3 (test code 0.51 10*3/uL 0.36-1.02 = 742-7) EOS x10^3 (test code = 0.36 10*3/uL 0.06-0.53 711-2) BASO x10^3 (test code 0.03 10*3/uL 0.01-0.09 = 704-7) Lab Interpretation Abnormal (test code = 15886-8) [facility] (AUTOMATED)2021-11-09 20:27:39 Test Item Value Reference Range Interpretation Comments POCT GLU (test code = 2986451491) 190 mg/dL 70-110 H Lab Interpretation (test code = Abnormal 28608-3) [facility]GL[facility]ED[facility] [id number] 11:52:00 Test Item Value Reference Range Interpretation Comments GLUCOSE BEDSIDE TESTING (test code = 92 mg/dL 70-110 N GLUBED) GLUCOSE BEDSIDE [id number] 08:05:00 Test Item Value Reference Range Interpretation Comments GLUCOSE BEDSIDE TESTING (test code = 62 mg/dL 70-110 L GLUBED) GLUCOSE BEDSIDE [id number] 20:40:00 Test Item Value Reference Range Interpretation Comments GLUCOSE BEDSIDE TESTING (test code 105 mg/dL 70-110 N = GLUBED) GLUCOSE BEDSIDE [id number] 17:02:00 Test Item Value Reference Range Interpretation Comments GLUCOSE BEDSIDE TESTING (test code 128 mg/dL 70-110 H = GLUBED) GLUCOSE BEDSIDE [id number] 16:37:00 Test Item Value Reference Range Interpretation Comments GLUCOSE BEDSIDE TESTING (test code 105 mg/dL 70-110 N = GLUBED) GLUCOSE BEDSIDE [id number] 08:17:00 Test Item Value Reference Range Interpretation Comments GLUCOSE BEDSIDE TESTING (test code = 88 mg/dL 70-110 N GLUBED) GLUCOSE BEDSIDE [id number] 19:45:00 Test Item Value Reference Range Interpretation Comments GLUCOSE BEDSIDE TESTING (test code 115 mg/dL 70-110 H = GLUBED) GLUCOSE BEDSIDE [id number] 18:13:00 Test Item Value Reference Range Interpretation Comments GLUCOSE BEDSIDE TESTING (test code = 74 mg/dL 70-110 N GLUBED) GLUCOSE BEDSIDE [id number] 17:29:00 Test Item Value Reference Range Interpretation Comments GLUCOSE BEDSIDE TESTING (test code = 44 mg/dL 70-110 LL GLUBED) GLUCOSE BEDSIDE [id number] 12:26:00 Test Item Value Reference Range Interpretation Comments GLUCOSE BEDSIDE TESTING (test code = 96 mg/dL 70-110 N GLUBED) GLUCOSE BEDSIDE [id number] 08:21:00 Test Item Value Reference Range Interpretation Comments GLUCOSE BEDSIDE TESTING (test code = 77 mg/dL 70-110 N GLUBED) GLUCOSE BEDSIDE [id number] 20:12:00 Test Item Value Reference Range Interpretation Comments GLUCOSE BEDSIDE TESTING (test code = 91 mg/dL 70-110 N GLUBED) GLUCOSE BEDSIDE [id number] 16:42:00 Test Item Value Reference Range Interpretation Comments GLUCOSE BEDSIDE TESTING (test code 106 mg/dL 70-110 N = GLUBED) GLUCOSE BEDSIDE [id number] 11:49:00 Test Item Value Reference Range Interpretation Comments GLUCOSE BEDSIDE TESTING (test code = 89 mg/dL 70-110 N GLUBED) GLUCOSE BEDSIDE [id number] 08:22:00 Test Item Value Reference Range Interpretation Comments GLUCOSE BEDSIDE TESTING (test code = 68 mg/dL 70-110 L GLUBED) GLUCOSE BEDSIDE [id number] 20:05:00 Test Item Value Reference Range Interpretation Comments GLUCOSE BEDSIDE TESTING (test code 137 mg/dL 70-110 H = GLUBED) GLUCOSE BEDSIDE [id number] 16:42:00 Test Item Value Reference Range Interpretation Comments GLUCOSE BEDSIDE TESTING (test code = 98 mg/dL 70-110 N GLUBED) GLUCOSE BEDSIDE [id number] 11:13:00 Test Item Value Reference Range Interpretation Comments GLUCOSE BEDSIDE TESTING (test code 118 mg/dL 70-110 H = GLUBED) GLUCOSE BEDSIDE [id number] 07:37:00 Test Item Value Reference Range Interpretation Comments GLUCOSE BEDSIDE TESTING (test code 140 mg/dL 70-110 H = GLUBED) COMPREHENSIVE METABOLIC [id number] 06:34:00 Test Item Value Reference Range Interpretation [...] TOTAL (test code = ALKP) CBC W/AUTO [id number] 06:25:00 Test Item Value Reference Range Interpretation [...] DIFF/SCN CRITERIA = MDIFF) - CT ABDOMEN W/[id number] 03:09:00 [facility] 1960 Sex: M Name: FAITH VANCE [facility] : 1960 Age/S: 60 / M [address] [address] Unit #: [id number] Loc: [place] [address] Phys: Fede Carrera DO Acct: [id number] Dis Date: Status: ADM IN PHONE #:[phone] Exam Date: 10/31/20201919 FAX #: Reason: NAUSEA, VOMITING, DIARRHEA EXAMS: CPT: [id number] CT ABDOMEN W/CONTRAST 85724 EXAM: - CT ABDOMEN W/CONTRAST LOCATION: H61 [...] VANCE : 1960 Age/S: 60 / M [address] [address] Unit #: [id number] Loc: [place] [address] Phys: Fede Romero DO Acct: [id number] Dis Date: Status: ADM IN PHONE #: [phone] Exam Date: 10/31/20201919 FAX #: Reason: NAUSEA, VOMITING, DIARRHEA EXAMS: CPT: [id number] CT ABDOMEN W/CONTRAST 84090 <Continued> small bowel wall thickening. The appendix [...] Rohan(R) CTDI: DLP: Trnscb Date/Time: 11/01/2020 (030) t.KATHRYNR.TH15 Orig Print D/T: S: 11/01/2020 (311) PAGE 2Signed ReportGLUCOSE BEDSIDE [id number] 21:34:00 Test Item Value Reference Range Interpretation Comments GLUCOSE BEDSIDE TESTING (test code 161 mg/dL 70-110 H = GLUBED) GLUCOSE BEDSIDE [id number] 17:32:00 Test Item Value Reference Range Interpretation Comments GLUCOSE BEDSIDE TESTING (test code 136 mg/dL 70-110 H = GLUBED) - XR ABDOMEN 1 [id number] 12:44:00 [facility] 1960 Sex: M Name: FAITH VANCE [facility] : 1960 Age/S: 60 / M [address] [address] Unit #: [id number] Loc: [place] [address] Phys: Fede Carrera DO Acct: [id number] Dis Date: Status: ADM IN PHONE #: [phone] Exam Date: 10/31/2020 1227 FAX #: Reason: Abdominal pain in the lower qudarants EXAMS: CP T: [id number] XR ABDOMEN 1 V 14386 Fluoro Time: DAP (Gy m2): Air Kerma [...] appearance. at 1244 Reported and signed by: Annath Schmidt M.D. CC: Nika Martin MD; Fede Carrera DO PAGE 1 Signed Report Name: FAITH VANCE : 1960 Age/S: 60 / M [address] [address] Unit #: [id number] Loc: [place] [address] Phys: Fede Carrera Acct: [id number] Dis Date: Status: ADM IN PHONE #: [phone] Exam Date: 10/31/2020 1227 FAX #: Reason: Abdominal pain in the lower qudarants EXAMS: CPT: [id number] XR ABDOMEN 1 V 99434 Fluoro Time: DAP (Gy m2): Air Kerma (mGy): < Continued> Technologist: RT Rohan(R) Trnscb Date/Time: 10/31/2020 (0038) Lorena Orig Print D/T: S: 10/31/2020 (8489) PAGE 2 Signed Report GLUCOSE BEDSIDE [id number] 11:58:00 Test Item Value Reference Range Interpretation Comments GLUCOSE BEDSIDE TESTING (test code 105 mg/dL 70-110 N = GLUBED) GLUCOSE BEDSIDE [id number] 08:01:00 Test Item Value Reference Range Interpretation Comments GLUCOSE BEDSIDE TESTING (test code 106 mg/dL 70-110 N = GLUBED) [id number] 22:46:00 Test Item Value Reference Range Interpretation [...] yby method. Completed by Nursing: NOGLUCOSE BEDSIDE [id number] 21:55:00 Test Item Value Reference Range Interpretation Comments GLUCOSE BEDSIDE TESTING (test code 119 mg/dL 70-110 H = GLUBED) [id number] 19:33:00 Test Item Value Reference Range Interpretation [...] method. Completed by Nursing: NOCoronavirus 2019 nCoV [id number] 18:46:00 Test Item Value Reference Range Interpretation Comments Coronavirus 2019 nCoV Negative Negative Per arnie nufacturer, Bedside (test code = negativ e results should [id number]) be treated aspresumptive a nd, if inconsistent [...] with COVID-19. Spec Comments: NNT PRO-BRAIN NATRIURETIC [id number] 15:51:00 Test Item Value Reference Range Interpretation Comments NT PRO-BRAIN NATRIURETIC PEPTI 6079 PG/ML 0-100 H (test code = PROBNP) Completed by Nursing: [id number] 15:51:00 Test Item Value Reference Range Interpretation [...] yby method. Completed by Nursing: NOBASIC METABOLIC [id number] 15:51:00 Test Item Value Reference Range Interpretation [...] Completed by Nursing: NO- XR CHEST 1 [id number] 15:42:00 [facility] 1960 Sex: M Name: FAITH VANCE [facility] : 1960 Age/S: 60 / M [address] [address] Unit #: [id number] Loc: [place] [address] Phys: Todd Jacobo MD Acct: [id number] Dis Date: Status: PRE ER PHONE #:[phone] Exam Date: 10/30/2020 7493 FAX #: Reason: chest pain EXAMS: CPT: [id number] XR CHEST 1 V 96069 Fluoro Time: DAP (Gy m2): Air Kerma [...] PAGE 1 Signed Report Name: FAITH VANCE [facility] [place] : 1960 Age/S: 60 / M [address] [address] Unit #: [id number] Loc: [place] [address] Phys: Todd Jacobo MD Acct: [id number] Dis Date: Status: PRE ER PHONE #: [phone] Exam Date: 10/30/2020 1524 FAX #: Reason: chest pain EXAMS: CPT: [id number] XR CHEST 1 V 22604 Fluoro Time: DAP (Gy m2): Air Kerma (mGy): <Continued> Technologist: Kim Andrews RT(R)(CT) Trnscb Date/Time: 10/30/2020 (1542) t.KATHRYNR.RB24 Orig Print D/T:S: 10/30/2020 (2043) PAGE 2 Signed ReportCBC W/O [id number] 15:31:00 Test Item Value Reference Range Interpretation [...] 9.70 fL 7.0-9.6 H MPV) BASIC METABOLIC [id number] 21:42:00 Test Item Value Reference Range Interpretation [...] 9.6 mg/dL 8.0-10.5 N CA) HEPATIC FUNCTION [id number] 21:42:00 Test Item Value Reference Range Interpretation [...] 114 IUnit/L 20-125 N code = ALKP) [id number] 21:42:00 Test Item Value Reference Range Interpretation Comments LIPASE (test code = LIP) 70 U/L 13-57 H [id number] 21:42:00 Test Item Value Reference Range Interpretation [...] by method. UA RFLX MICR CULT IF [id number] 21:37:00 Test Item Value Reference Range Interpretation [...] INDWELLING CATH (CEDENO)Cath Status: Under 72 hoursPROTHROMBIN [id number] 21:35:00 Test Item Value Reference Range Interpretation [...] (to prevent recurrent infar ct). THROMBOPLASTIN TIME [id number] 21:35:00 Test Item Value Reference Range Interpretation Comments THROMBOPLASTIN TIME 41.7 Seconds 25.0-39.5 H Therape utic Range: PARTIAL (test code = 50.4 - 88.3 Seconds PTT) Effective 09/04/2018 CBC W/AUTO [id number] 21:29:00 Test Item Value Reference Range Interpretation [...] = MDIFF) - CT ABD PELVIS W/O [id number] 20:49:00 [facility] : 1960 Sex: M Name: FAITH VANCE [facility] [place] : 1960 Age/S: 60 / M [address] [place] [address] Blvd Unit #: [id number] Loc: [place] [address] Phys: Gisel Eugene [facility] Acct: [id number] Dis Date: Status: LAZARO KNIGHT #: [phone] Exam Date: 08/23/20202024 FAX #: [phone] Reason: DIFFUSE ABDOMINAL PAIN EXAMS: CPT CODE: [id number] CT ABD PELVIS W/O CONT 28559 Clinical indication: Diffuse abdominal pain.Contrast - No [...] 1 Signed Report (CONTINUED) Name: FAITH VANCE [facility] [place] : 1960 Age/S: 60 / M [address] [place] [address] Blvd Unit #: [id number] Loc: [place] [address] Phys: Gisel Eugene Acct: [id number] Dis Date: Status: REG ER PHONE #: [phone] Exam Date: 08/23/20202024 FAX #: [phone] Reason: DIFFUSE ABDOMINAL PAIN EXAMS: CPT CODE: [id number] CT ABD PELVIS W/O CONT 51097 <Continued> Peritoneum/Other: No extraluminal air. 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 [facility] BASIC METABOLIC [id number] 08:00:00 Test Item Value Reference Range Interpretation [...] 9.9 mg/dL 8.0-10.5 N CA) CBC W/AUTO [id number] 07:08:00 Test Item Value Reference Range Interpretation [...] DIFF REQUIRED (test code NO = MDIFF) [id number] 05:21:00 Test Item Value Reference Range Interpretation Comments GLUBED (test code = 150 MG/DL 70-110 H Performe d by certified GLUBED) 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 [facility] [id number] 21:13:00 Test Item Value Reference Range Interpretation Comments GLUBED (test code = 129 MG/DL 70-110 H Performe d by certified GLUBED) 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 [facility] [id number] 16:48:00 Test Item Value Reference Range Interpretation Comments GLUBED (test code = 116 MG/DL 70-110 H Performe d by certified GLUBED) 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 [facility] [id number] 12:18:00 Test Item Value Reference Range Interpretation Comments GLUBED (test code = 136 MG/DL 70-110 H Performe d by certified GLUBED) 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 [facility] [id number] 12:18:00 Test Item Value Reference Range Interpretation Comments GLUBED (test code = 151 MG/DL 70-110 H Performe d by certified GLUBED) 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 [facility] CBC W/AUTO [id number] 07:32:00 Test Item Value Reference Range Interpretation [...] (test code NO = MDIFF) BASIC METABOLIC [id number] 07:29:00 Test Item Value Reference Range Interpretation [...] code = 9.0 mg/dL 8.0-10.5 N CA) [id number] 05:19:00 Test Item Value Reference Range Interpretation Comments GLUBED (test code = 135 MG/DL 70-110 H Performe d by certified GLUBED) 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 [facility] [id number] 20:31:00 Test Item Value Reference Range Interpretation Comments GLUBED (test code = 189 MG/DL 70-110 H Performe d by certified GLUBED) 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 [facility] [id number] 17:41:00 Test Item Value Reference Range Interpretation Comments GLUBED (test code = 140 MG/DL 70-110 H Performe d by certified GLUBED) 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 [facility] - CTA CHEST FOR [id number] 13:48:00 [facility] 1960 Sex: M Name: FAITH VANCE [facility] : 1960 Age/S: 60 / M [address] [place] [address] Blvd Unit #: [id number] Loc: [place] [address] Phys: Gina Gonzalez NP Acct: [id number] Dis Date: Status: ADM IN PHONE #: [phone] Exam Date: 08/12/2020 0912 FAX #: [phone] Reason: CP, elevated D-dimer EXAMS: CPT CODE: [id number] [place] [address] PROCEDURE: CTA CHEST INDICATION: CP, elevated D-dimer; [...] 1 Signed Report (CONTINUED) Name: FAITH VANCE [facility] : 1960 Age/S: 60 / M [address] [place] [address] Blvd Unit #: [id number] Loc: [place] [address] Phys: Gina Gonzalez NP Acct: [id number] Dis Date: Status: ADM IN PHONE #: [phone] Exam Date: 08/12/2020911 FAX #: [phone] Reason: CP, elevated D-dimer EXAMS: CPT CODE: [id number] [place] [address] <Continued> contrastenhancement. No acute abnormality demonstrated. MUSCULOSKELETAL: Healed median sternotomy. No acute skeletal abnormality. IMPRESSION: 1. Negative for pulmonary embolic disease within limitations noted.2. Atherosclerosis. 3. Coronary arterial calcifications with prior coronary arterial stents and CABG. 4. Interstitial edema. No consolidation. 5. Small bilateral pleural effusions. SL: [id number] at 1348 Reported and signed by:Christiano Piña M.D. CC: Johnie Montanez MD; Gina Gonzalez NP; Nika Martin MD Techno logist:Kate Camacho, RT(R)(CT) CTDI: DLP: Trnscb Date/Time: 08/12/2020 (3714) Ashley Orig Print D/T: S: 08/12/2020 (2595) PAGE 2 Signed ReportGLUBED 2020-08-12 11:38:00 Test Item Value Reference Range Interpretation Comments GLUBED (test code = 146 MG/DL 70-110 H Performe d by certified GLUBED) 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 [facility] CBC W/AUTO [id number] 09:17:00 Test Item Value Reference Range Interpretation [...] (test code NO = MDIFF) BASIC METABOLIC [id number] 08:28:00 Test Item Value Reference Range Interpretation [...] code = 8.3 mg/dL 8.0-10.5 N CA) [id number] 08:28:00 Test Item Value Reference Range Interpretation Comments PHOSPHOROUS (test code = PHOS) 3.6 MG/DL 2.5-4.9 N [id number] 08:28:00 Test Item Value Reference Range Interpretation Comments MAGNESIUM (test code = MAG) 1.94 mg/dL 1.80-2.40 N [id number] 07:16:00 Test Item Value Reference Range Interpretation Comments GLUBED (test code = 170 MG/DL 70-110 H Performe d by certified GLUBED) 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 [facility] [id number] 07:16:00 Test Item Value Reference Range Interpretation Comments GLUBED (test code = 137 MG/DL 70-110 H Performe d by certified GLUBED) 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 [facility] OKZORY6454-11-29 17:01:00 Test Item Value Reference Range Interpretation Comments GLUBED (test code = 88 MG/DL 70-110 N Performe d by certified GLUBED) 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 [facility] SEN-LNAHT7826-76-23 16:56:00 Test Item Value Reference Range Interpretation Comments ACT-ISTAT (test code 186 SEC 74-137 H Perform ed by certified = ACTI) 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 JosephVXYCB7663-32-03 15:03:00 Test Item Value Reference Range Interpretation Comments ACT-ISTAT (test code 235 SEC 74-137 H Perform ed by certified = ACTI) 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 [facility] [id number] 11:33:00 Test Item Value Reference Range Interpretation Comments GLUBED (test code = 97 MG/DL 70-110 N Performe d by certified GLUBED) 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 [facility] [id number] 06:54:00 Test Item Value Reference Range Interpretation Comments GLUBED (test code = 136 MG/DL 70-110 H Performe d by certified GLUBED) 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 [facility] BASIC METABOLIC [id number] 06:00:00 Test Item Value Reference Range Interpretation [...] COMMENTS: To be done morning of Heart YztrWCAQGRUAEFB2373-38-10 06:00:00 Test Item Value Reference Range Interpretation Comments PHOSPHOROUS (test code = PHOS) 4.1 MG/DL 2.5-4.9 N COMMENTS: To be done morning of Heart JqxkJKSTATUMN1011-08-98 06:00:00 Test Item Value Reference Range Interpretation Comments MAGNESIUM (test code = MAG) 1.74 mg/dL 1.80-2.40 L COMMENTS: To be done morning of Heart CathTHROMBOPLASTIN TIME [id number] 05:55:00 Test Item Value Reference Range Interpretation Comments THROMBOPLASTIN TIME 37.9 Seconds 25.0-39.5 N Therape utic Range: PARTIAL (test code = 50.4 - 88.3 Seconds PTT) Effective 09/04/2018 CBC W/AUTO [id number] 05:44:00 Test Item Value Reference Range Interpretation [...] COMMENTS: To be done morning of Heart [id number] 05:44:00 Test Item Value Reference Range Interpretation Comments GLUBED (test code = 92 MG/DL 70-110 N Performe d by certified GLUBED) 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 [facility] HGBA1C%2020-08-10 17:22:00 Test Item Value Reference Range Interpretation Comments HGBA1C% (test code = HGBA1C%) 6.6 %A1C 4.8-6.0 H [id number] 17:17:00 Test Item Value Reference Range Interpretation Comments GLUBED (test code = 118 MG/DL 70-110 H Performe d by certified GLUBED) 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 [facility] TSH REFLEX TO [id number] 15:37:00 Test Item Value Reference Range Interpretation Comments TSH REFLEX TO FT4 (test code = 3.19 IU/mL 0.42-5.47 N TSHREFLEX) [id number] 15:37:00 Test Item Value Reference Range Interpretation [...] y by method. COVID 19 Asymptomatic IH [id number] 11:35:00 Test Item Value Reference Range Interpretation [...] y tests. COMMENTS: If not done this zqorinhfaDYUVQWOA-[id number] 11:31:00 Test Item Value Reference Range Interpretation Comments TROPONIN-I 0.033 ng/mL 0.000-0.045 N Negative: <= 0 .045 Positive: (test code = >= 0.046 Correl ation with TROPI) serial results, other cardiac markers andclin ical findings is necessary to determine the clinicalsignifi cance of this result. Results using different metho dologies should not be c omparedto one another as minh titative results may babak y by method. [id number] 11:28:00 Test Item Value Reference Range Interpretation Comments D-DIMER (test 1089 ng/mlFEU See_Comment HH Critical resu lt called to code = ALYX SANTAMARIAAS, RNby DDIMER) G.LAB.JJ1 at 04 1808/10/20Nurse r [...] to interpret this result as normal/abnormal . [id number] 10:48:00 Test Item Value Reference Range Interpretation Comments GLUBED (test code = 158 MG/DL 70-110 H Performe d by certified GLUBED) 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 [facility] B-TYPE NATRIURETIC [id number] 08:19:00 Test Item Value Reference Range Interpretation Comments B-TYPE NATRIURETIC PEPTIDE (test 508.0 PG/ML 0-100 H code = BNP) BASIC METABOLIC [id number] 08:11:00 Test Item Value Reference Range Interpretation [...] 9.1 mg/dL 8.0-10.5 N CA) HEPATIC FUNCTION [id number] 08:11:00 Test Item Value Reference Range Interpretation [...] 174 IUnit/L 20-125 H code = ALKP) [id number] 08:11:00 Test Item Value Reference Range Interpretation Comments MAGNESIUM (test code = MAG) 1.80 mg/dL 1.80-2.40 N [id number] 08:11:00 Test Item Value Reference Range Interpretation [...] may babak y by method. BASIC METABOLIC [id number] 08:09:00 Test Item Value Reference Range Interpretation [...] code = CA) mg/dL 8.0-10.5 HEPATIC FUNCTION [id number] 08:09:00 Test Item Value Reference Range Interpretation Comments TOTAL PROTEIN (test code = PROT) g/dL 6.4-8.2 ALBUMIN (test code = ALB) g/dL 3.4-5.0 BILIRUBIN TOTAL (test code = BILT) mg/dL 0.0-1.0 BILIRUBIN DIRECT (test code = BILD) MG/DL 0.0-0.30 SGOT/AST (test code = AST) IUnit/L 15-37 SGPT/ALT (test code = ALT) IUnit/L 30-65 ALKALINE PHOSPHATASE TOTAL (test IUnit/L 20-125 code = ALKP) [id number] 08:09:00 Test Item Value Reference Range Interpretation Comments MAGNESIUM (test code = MAG) mg/dL 1.80-2.40 [id number] 08:09:00 Test Item Value Reference Range Interpretation [...] results may babak y by method. PROTHROMBIN [id number] 08:06:00 Test Item Value Reference Range Interpretation [...] (to prevent recurrent infar ct). THROMBOPLASTIN TIME [id number] 08:06:00 Test Item Value Reference Range Interpretation Comments THROMBOPLASTIN TIME 44.5 Seconds 25.0-39.5 H Therape utic Range: PARTIAL (test code = 50.4 - 88.3 Seconds PTT) Effective 09/04/2018 CBC W/AUTO [id number] 07:58:00 Test Item Value Reference Range Interpretation [...] NO = MDIFF) - XR CHEST 1 [id number] 07:57:00 [facility] : 1960 Sex: M FAX: Todd Jacobo MD [phone] [place]: St: [facility] FAX: Martínez Dash YAYA [phone] Name: FAITH VANCE [facility] Teressa : 1960 Age/S: 60/M [address] [place] [address] Blvd Unit #: [id number] Loc: [place] [address] Phys: Sriram Dashfely ORIENTAL MEDICINE PRACTITIONER Acct: [id number] Dis Date: Status: REG ER PHONE #: [phone] Exam Date: 08/10/2020752 FAX #: [phone] Reason: Chest Pain EXAMS: CPT CODE: [id number] XR CHEST 1 V 14375 Chest single view 08/10/2020 HISTORY: Chest pain. Comparison is made to 05/21/2018 FINDINGS: Pacemaker and midline sternotomy wires are stable. The lungs are hypoinflated. No consolidation or pleural effusion is present. No vascular congestion or interstitial edema is present. Heart size is mildly enlarged. Aorta is unchanged. IMPRESSION: Hypoinflated lungs. No acute cardiopulmonary process. SL: [id number] at 0757 Reported and signed by: Khai Kruse M.D. CC: Todd Jacobo MD; Martínez Dash NP Technologist: RT Ann(R) Trnscrd Date/Time/By: 08/10/2020 (0757) : By: [email or web address] Orig Print D/T: S: 08/10/2020 (0800) PAGE 1 Signed Report COMPREHENSIVE METABOLIC [id number] 18:02:00 Test Item Value Reference Range Interpretation [...] 50-136 H TOTAL (test code = ALKP) [id number] 18:02:00 Test Item Value Reference Range Interpretation Comments AMYLASE (test code = SERGIO) 82 Unit/L 25-115 N [id number] 18:02:00 Test Item Value Reference Range Interpretation Comments LIPASE (test code = LIP) 185 Unit/L 114-286 N COMPREHENSIVE METABOLIC [id number] 17:56:00 Test Item Value Reference Range Interpretation [...] TOTAL Unit/L 50-136 (test code = ALKP) [id number] 17:56:00 Test Item Value Reference Range Interpretation Comments AMYLASE (test code = SERGIO) Unit/L 25-115 [id number] 17:56:00 Test Item Value Reference Range Interpretation Comments LIPASE (test code = LIP) 185 Unit/L 114-286 N CBC W/AUTO [id number] 17:46:00 Test Item Value Reference Range Interpretation [...] CRITERIA MDIFF) - CT ABD PELVIS W/O [id number] 17:46:00 Name: FAITH VANCE [facility] : 1960 Age/S: 58 / M [address] [place] Unit #: [id number] Loc: [place] [address] Phys: Nila Chester MD Acct: [id number] Dis Date: Status: REG ER PHONE #: [phone] Exam Date: 01/03/2019 3772 FAX #: Reason: llq EXAMS: CPT: [id number] CT ABD PELVIS W/O CONT 02864 Location of dictation: B2 CT abdomen and [...] Signed Report (CONTINUED) Name: FAITH VANCE [facility] : 1960 Age/S: 58 / M [address] [place] Unit #: [id number] Loc: [place] [address] Phys: Nila Chester MD Acct: [id number] Dis Date: Status: REG ER PHONE #: [phone] Exam Date: 01/03/2019 3247 FAX #: Reason: llq EXAMS: CPT: [id number] CT ABD PELVIS W/O CONT 68840 <Continued> at 1746 Reported and signed by: Renuka Willett M.D. CC: Nila Chester MD Technologist:Tavon Jurado RT(R)(CT)(MRI) CTDI: DLP: Trnscb Date/Time: 01/03/2019(1746) [email or web address] Orig Print D/T: S: 01/03/2019 (6733) PAGE 2 Signed ReportBedside [id number] 11:47:00 Test Item Value Reference Range Interpretation Comments Bedside Glucose (test code = 82487-5) 155 70-120 H Meter ID: [id number] Hospitals of Providence [facility] Campusodium Lsmrs9131-11-04 08:31:00 Test Item Value Reference Range Interpretation Comments Sodium Level (test code = 2951-2) 139 136-145 [facility]evillePotassium [id number] 08:31:00 Test Item Value Reference Range Interpretation Comments Potassium Level (test code = 2823-3) 4.0 3.5-5.1 [facility]evilleChloride [id number] 08:31:00 Test Item Value Reference Range Interpretation Comments Chloride Level (test code = 2075-0) 106 98-107 [facility] BeevilleCarbon Dioxide Rrybh1013-70-16 08:31:00 Test Item Value Reference Range Interpretation Comments Carbon Dioxide Level (test code = 8-9) [facility] BeevilleAnion [id number] 08:31:00 Test Item Value Reference Range Interpretation Comments Anion Gap (test code = 07011-6) 12.0 8-16 [facility] BeevilleBlood Urea Efyyisjs9435-94-72 08:31:00 Test Item Value Reference Range Interpretation Comments Blood Urea Nitrogen (test code = 12-14 3094-0) [facility] BeevilleCreatinine2018-06-08 08:31:00 Test Item Value Reference Range Interpretation Comments Creatinine (test code = 2160-0) 0.72 0.72-1.25 [facility]evilleBUN/Creatinine [id number] 08:31:00 Test Item Value Reference Range Interpretation Comments BUN/Creatinine Ratio (test code = 11-13 3097-3) [facility] BeevilleEstimat Glomerular Filtration Yuoy1215-69-69 08:31:00 Test Item Value Reference Range Interpretation Comments Estimat Glomerular Filtration Rate 60- >60 (test code = 99307-8) Ranges were taken from the National Kidney Disease Education Program and the National Kidney Foundation literature.Reference ranges:60 or greater: Iynifh68- 59 (for 3 consecutive months): Chronic kidneydisease 15 or less: Kidney failure [facility] BeevilleGlucose Gzfyz6254-89-72 08:31:00 Test Item Value Reference Range Interpretation Comments Glucose Level (test code = MCH5788) 195 74-118 H [facility] BeevilleCalcium Ffcqq0134-47-19 08:31:00 Test Item Value Reference Range Interpretation Comments Calcium Level (test code = 81841-6) 9.0 8.4-10.2 [facility] BeevilleWhite Blood [id number] 08:12:00 Test Item Value Reference Range Interpretation Comments White Blood Count (test code = 6690-2) 6.06 4.8-10.8 [facility] BeevilleRed Blood [id number] 08:12:00 Test Item Value Reference Range Interpretation Comments Red Blood Count (test code = 789-8) 4.22 4.3-5.7 L [facility] BeevilleHemoglobin2018-06-08 08:12:00 Test Item Value Reference Range Interpretation Comments Hemoglobin (test code = 03066-2) 12.5 14.0-18.0 L [facility] BeevilleHematocrit2018-06-08 08:12:00 Test Item Value Reference Range Interpretation Comments Hematocrit (test code = 4544-3) 36.2 38.2-49.6 L [facility] BeevilleMean Corpuscular Awhfzo9369-78-80 08:12:00 Test Item Value Reference Range Interpretation Comments Mean Corpuscular Volume (test code = 85.8 81-99 787-2) [facility]evilleMean Corpuscular Qzortpksfh1357-36-69 08:12:00 Test Item Value Reference Range Interpretation Comments Mean Corpuscular Hemoglobin (test code 29.6 28-32 = 785-6) [facility]evilleMean Corpuscular Hemoglobin Sphsadt8957-97-29 08:12:00 Test Item Value Reference Range Interpretation Comments Mean Corpuscular Hemoglobin Concent 34.5 31-35 (test code = 786-4) [facility] BeevilleRed Cell Distribution Rlkcg6877-34-10 08:12:00 Test Item Value Reference Range Interpretation Comments Red Cell Distribution Width (test code 14.2 11.7-14.4 = 10122-8) [facility] BeevillePlatelet Twzux0458-84-23 08:12:00 Test Item Value Reference Range Interpretation Comments Platelet Count (test code = 777-3) 263 140-360 [facility] BeevilleNeutrophils (%) (Auto)2017-10-27 08:12:00 Test Item Value Reference Range Interpretation Comments Neutrophils (%) (Auto) (test code = 51.2 38.7-80.0 66635-4) [facility]evilleLymphocytes (%) (Auto)2017-10-27 08:12:00 Test Item Value Reference Range Interpretation Comments Lymphocytes (%) (Auto) (test code = 33.7 18.0-39.1 736-9) [facility]evilleMonocytes (%) (Auto)2017-10-27 08:12:00 Test Item Value Reference Range Interpretation Comments Monocytes (%) (Auto) (test code = 9.1 4.4-11.3 5905-5) [facility]evilleEosinophils (%) (Auto)2017-10-27 08:12:00 Test Item Value Reference Range Interpretation Comments Eosinophils (%) (Auto) (test code = 4.8 0.0-6.0 713-8) [facility]evilleBasophils (%) (Auto)2017-10-27 08:12:00 Test Item Value Reference Range Interpretation Comments Basophils (%) (Auto) (test code = 0.7 0.0-1.0 706-2) [facility] BeevilleIM GRANULOCYTES %2017-10-27 08:12:00 Test Item Value Reference Range Interpretation Comments IM GRANULOCYTES % (test code = IM 0.5 0.0-1.0 GRANULOCYTES %) [facility]evilleNeutrophils # (Auto)2017-10-27 08:12:00 Test Item Value Reference Range Interpretation Comments Neutrophils # (Auto) (test code = 3.1 2.1-6.9 751-8) [facility]evilleLymphocytes # (Auto)2017-10-27 08:12:00 Test Item Value Reference Range Interpretation Comments Lymphocytes # (Auto) (test code = 2.0 1.0-3.2 67208-6) [facility]evilleMonocytes # (Auto)2017-10-27 08:12:00 Test Item Value Reference Range Interpretation Comments Monocytes # (Auto) (test code = 742-7) 0.6 0.2-0.8 [facility]evilleEosinophils # (Auto)2017-10-27 08:12:00 Test Item Value Reference Range Interpretation Comments Eosinophils # (Auto) (test code = 0.3 0.0-0.4 711-2) [facility]evilleBasophils # (Auto)2017-10-27 08:12:00 Test Item Value Reference Range Interpretation Comments Basophils # (Auto) (test code = 704-7) 0.0 0.0-0.1 [facility] BeevilleAbsolute Immature Granulocyte (lyoe6126-44-55 08:12:00 Test Item Value Reference Range Interpretation Comments Absolute Immature Granulocyte (auto 0.03 0-0.1 (test code = Absolute Immature Granulocyte (auto) [facility] BeevilleCreatine Kinase [id number] 15:14:00 Test Item Value Reference Range Interpretation Comments Creatine Kinase MB (test code = 3.90 0-5.0 60288-3) [facility] BeevilleTroponin [id number] 15:14:00 Test Item Value Reference Range Interpretation Comments Troponin I (test code = NNC7571) 0.054 0-0.300 [facility] BeevilleCreatine Qcwuvd3092-24-96 15:07:00 Test Item Value Reference Range Interpretation Comments Creatine Kinase (test code = 2157-6) 297 30-200 H [facility] BeevilleHemoglobin A1c Njfoynk1237-77-71 08:04:00 Test Item Value Reference Range Interpretation Comments Hemoglobin A1c Percent (test code = 12.6 4.0-7.0 H Hemoglobin A1c Percent) [facility]evilleTriglycerides Azygz4675-10-82 06:57:00 Test Item Value Reference Range Interpretation Comments Triglycerides Level (test code = 200 0-149 H 2571-8) [facility] BeevilleCholesterol Aekjp4174-76-50 06:57:00 Test Item Value Reference Range Interpretation Comments Cholesterol Level (test code = 2093-3) 239 0-199 H Less than 200 mg/dL Low Ymrp116 - 239 mg/dL Borderline Atow984 mg/dl and greater High RiskCH[facility] BeevilleLDL Ayqccmylucu5910-58-44 06:57:00 Test Item Value Reference Range Interpretation Comments LDL Cholesterol (test code = 2089-1) 164 60-130 H [facility] BeevilleHDL Dkwnzqqhhxo8871-93-04 06:57:00 Test Item Value Reference Range Interpretation Comments HDL Cholesterol (test code = 2085-9) 35 40-60 L [facility] BeevilleCholesterol/HDL Qzcml7436-06-94 06:57:00 Test Item Value Reference Range Interpretation Comments Cholesterol/HDL Ratio (test code = 6.8 3.9-4.7 H 9830-1) [facility] BeevilleUrine Methadone Ygaogr1224-38-87 16:18:00 Test Item Value Reference Range Interpretation Comments Urine Methadone Screen (test code = NEGATIVE NEGATIVE 38537-9) THESE RESULTS ARE FOR MEDICAL TREATMENT ONLYTHIS REPORT CONTAINS UNCONFIRMED SCREENING RESULTS*POSITIVE RESULTS WILL BE CONFIRMED BY REFERENCE LAB UPON REQUEST CUT-OFFDRUG CLASS CONCENTRATION ng/mLAmphetamines 1000Methamphetamines 1000Cocaine Metabolite 300Opiate 300Phencyclidine 96Xxgfrplihlv35Ivlpmkqnsybp 300Benzodiazepine 300Methadone 300[facility] HospitalUrine Opiates Liiwto9963-40-16 16:18:00 Test Item Value Reference Range Interpretation Comments Urine Opiates Screen (test code = NEGATIVE NEGATIVE 82890-4) [facility] BeevilleUrine Barbiturates Uwbgma6929-78-07 16:18:00 Test Item Value Reference Range Interpretation Comments Urine Barbiturates Screen (test code NEGATIVE NEGATIVE = 053066652) [facility] BeevilleUrine Phencyclidine Qbsteo9548-46-13 16:18:00 Test Item Value Reference Range Interpretation Comments Urine Phencyclidine Screen (test NEGATIVE NEGATIVE code = 59561-1) [facility] BeevilleUrine Amphetamines Dkbtua7038-32-99 16:18:00 Test Item Value Reference Range Interpretation Comments Urine Amphetamines Screen (test code NEGATIVE NEGATIVE = 78895-9) [facility] BeevilleUrine Methamphetamines Rczzwk5062-24-12 16:18:00 Test Item Value Reference Range Interpretation Comments Urine Methamphetamines Screen (test NEGATIVE NEGATIVE code = Urine Methamphetamines Screen) [facility] BeevilleUrine Benzodiazepines Dinroo6693-72-14 16:18:00 Test Item Value Reference Range Interpretation Comments Urine Benzodiazepines Screen (test NEGATIVE NEGATIVE code = 95964-5) [facility] BeevilleUrine Cocaine Lmffpl3076-41-61 16:18:00 Test Item Value Reference Range Interpretation Comments Urine Cocaine Screen (test code = NEGATIVE NEGATIVE 3398-5) [facility] BeevilleUrine Cannabinoids Bhlifz6892-67-80 16:18:00 Test Item Value Reference Range Interpretation Comments Urine Cannabinoids Screen (test code NEGATIVE NEGATIVE = 51095-5) THESE RESULTS ARE FOR MEDICAL TREATMENT ONLYTHIS REPORT CONTAINS UNCONFIRMED SCREENING RESULTS*POSITIVE RESULTS WILL BE CONFIRMED BY REFERENCE LAB UPON REQUEST CUT-OFFDRUG CLASS CONCENTRATION ng/mLAmphetamines 1000Methamphetamines 1000Cocaine 300Opiate 300Phencyclidine 25Cannabinoid 50Barbiturates 300Benzodiazepine 300Methadone 300[facility] BeevilleProthrombin Sezz7664-66-00 14:13:00 Test Item Value Reference Range Interpretation Comments Prothrombin Time (test code = 5902-2) 13.6 11.9-14.5 [facility] BeevilleProthromb Time International Cpusk3515-64-78 14:13:00 Test Item Value Reference Range Interpretation Comments Prothromb Time International Ratio 1.13 (test code = 6301-6) Oral Anticoagulant Therapy INR Values:1. Low Intensity Therapy 1.5 - 2.02. Moderate Intensity Therapy 2.0 - 3.03. High Intensity Therapy(1) 2.5 - 3.54. High Intensity Therapy(2) 3.0 - 4.05. Panic ValueINR > 5.0[facility] BeevilleActivated Partial Thromboplast Tvgm6064-33-88 14:13:00 Test Item Value Reference Range Interpretation Comments Activated Partial Thromboplast Time 27.6 23.8-35.5 (test code = 83837-0) [facility] BeevilleTotal Phtmdusji4951-40-31 14:10:00 Test Item Value Reference Range Interpretation Comments Total Bilirubin (test code = 1975-2) 0.6 0.2-1.2 [facility] BeevilleAspartate Amino Transf (AST/SGOT)2017-10-23 14:10:00 Test Item Value Reference Range Interpretation Comments Aspartate Amino Transf (AST/SGOT) (test 36 5-34 H code = Aspartate Amino Transf (AST/SGOT)) [facility] BeevilleAlanine Aminotransferase (ALT/SGPT)2017-10-23 14:10:00 Test Item Value Reference Range Interpretation Comments Alanine Aminotransferase (ALT/SGPT) 34 0-55 (test code = 1742-6) [facility] BeevilleTotal Yzplwrg5170-15-87 14:10:00 Test Item Value Reference Range Interpretation Comments Total Protein (test code = 2885-2) 7.3 6.5-8.1 [facility] BeevilleAlbumin2018-06-04 14:10:00 Test Item Value Reference Range Interpretation Comments Albumin (test code = 1751-7) 4.0 3.5-5.0 [facility] BeevilleGlobulin2018-06-04 14:10:00 Test Item Value Reference Range Interpretation Comments Globulin (test code = 33078-9) 3.3 2.3-3.5 [facility] BeevilleAlbumin/Globulin Xmibk5051-67-10 14:10:00 Test Item Value Reference Range Interpretation Comments Albumin/Globulin Ratio (test code = 1.2 0.8-2.0 1759-0) [facility] BeevilleAlkaline Eegihnburhu3802-16-16 14:10:00 Test Item Value Reference Range Interpretation Comments Alkaline Phosphatase (test code = 109 40-150 6768-6) [facility] BeevilleB-Type Natriuretic Yspaglb5096-83-07 14:10:00 Test Item Value Reference Range Interpretation Comments B-Type Natriuretic Peptide (test code = 92.8 0-100 28664-1) [facility] BeevilleAmylase Fvprc1794-51-88 14:10:00 Test Item Value Reference Range Interpretation Comments Amylase Level (test code = 1798-8) 126 25-125 H [facility] BeevilleLipase2018-06-04 14:10:00 Test Item Value Reference Range Interpretation Comments Lipase (test code = 3040-3) 98 8-78 H [facility] BeevilleD-Dimer Quantitative (PE/DVT)2017-10-23 14:02:00 Test Item Value Reference Range Interpretation Comments D-Dimer Quantitative (PE/DVT) (test 0.49 0.00-0.45 H code = 25929-1) [facility] BeevilleDirect Vwaupsydw1864-88-69 13:47:00 Test Item Value Reference Range Interpretation Comments Direct Bilirubin (test code = 83229-3) 0.2 0.0-5.0 [facility] BeevilleMagnesium Cdahn7211-19-96 06:52:00 Test Item Value Reference Range Interpretation Comments Magnesium Level (test code = 88555-4) 1.5 1.3-2.1 [facility] BeevilleUrine SIB4777-81-30 05:09:00 Test Item Value Reference Range Interpretation Comments Urine WBC (test code = 5821-4) NONE 0-5 [facility] BeevilleUrine [id number] 05:09:00 Test Item Value Reference Range Interpretation Comments Urine RBC (test code = 12027-5) NONE 0-5 [facility] BeevilleUrine Xuevmtmu8497-31-97 05:09:00 Test Item Value Reference Range Interpretation Comments Urine Bacteria (test code = 39028-6) NONE NONE [facility] BeevilleUrine Epithelial Msbzz1977-26-75 05:09:00 Test Item Value Reference Range Interpretation Comments Urine Epithelial Cells (test code = NONE NONE 16164-8) [facility] BeevilleUrine Jhvrs9020-61-58 04:46:00 Test Item Value Reference Range Interpretation Comments Urine Color (test code = 5778-6) YELLOW YELLOW [facility] BeevilleUrine Edvldrk9436-14-79 04:46:00 Test Item Value Reference Range Interpretation Comments Urine Clarity (test code = 04989-4) CLEAR CLEAR [facility] BeevilleUrine Specific Sbxpyaa8422-31-51 04:46:00 Test Item Value Reference Range Interpretation Comments Urine Specific Eloy (test code = 1.010 1.010-1.025 5811-5) [facility] BeevilleUrine [id number] 04:46:00 Test Item Value Reference Range Interpretation Comments Urine pH (test code = 81903-4) 8 5-7 H [facility] BeevilleUrine Leukocyte Pptfneoc0328-04-16 04:46:00 Test Item Value Reference Range Interpretation Comments Urine Leukocyte Esterase (test code NEGATIVE NEGATIVE = 5799-2) [facility] Ptiiyst1782-13-90 04:46:00 Test Item Value Reference Range Interpretation Comments Urine Nitrite (test code = 00410-3) NEGATIVE NEGATIVE [facility] Clburle8453-43-30 04:46:00 Test Item Value Reference Range Interpretation Comments Urine Protein (test code = 5804-0) NEGATIVE NEGATIVE [facility] Glucose (UA)2017-03-05 04:46:00 Test Item Value Reference Range Interpretation Comments Urine Glucose (UA) (test code = NEGATIVE NEGATIVE 2349-9) [facility] Qhallnf5009-58-21 04:46:00 Test Item Value Reference Range Interpretation Comments Urine Ketones (test code = 52508-5) NEGATIVE NEGATIVE [facility] Iiylvfueetda3717-52-15 04:46:00 Test Item Value Reference Range Interpretation Comments Urine Urobilinogen (test code = 0.2 0.2-1 72771-7) [facility] Vkpygahmg8866-96-50 04:46:00 Test Item Value Reference Range Interpretation Comments Urine Bilirubin (test code = 1978-6) NEGATIVE NEGATIVE [facility] Mzijn7327-51-71 04:46:00 Test Item Value Reference Range Interpretation Comments Urine Blood (test code = 35111-8) 2+ NEGATIVE H [facility] [address] [place] [address] PatientName: FAITH VANCE MR #: [id number] : 1960 Age/Sex: 57/M Req #: [id number] Adm Physician: ALEXIS COX MD Ordered by: ALEXIS COX MD Report #: [id number] Location: [facility] Room/Bed: [place] [address] Procedure: [id number] CT/CTA BRAIN Exam Date: 10/24/17 Exam Time: [...] additional intracranial CTA abnormalities. Signed by: Dr. nAa Maria Arteaga M.D. on 10/24/2017 4:33 PM Dictated By: ANA MARIA ARTEAGA MD 1633 Transcribed By: ANDREE on 10/24/17 1633 COPY TO: ALEXIS COX MDCT BRAIN WO [place] [address] PatientName: FAITH VANCE MR #: [id number] : 1960 Age/Sex: 57/M Req #: [id number] Adm Physician: Ordered by: KHIA WAHL MD Report #: [id number] Location: Room/Bed: __ Procedure: [id number] CT/CT BRAIN WO Exam Date: 10/23/17 Exam [...] SignedBy: ANA MARIA ARTEAGA MD on 10/23/17 1643 Transcribed By: ANDREE on 10/23/17 1643 COPY TO: KHAI WAHL V MDCTA CHEST [place] [address] PatientName: FAITH VANCE MR #: [id number] : 1960 Age/Sex: 57/M Req #: [id number] Adm Physician: Ordered by: KHAI WAHL MD Report #: [id number] Location: Room/Bed: __ Procedure: [id number] CT/CTA CHEST Exam Date: 10/23/17 Exam Time: [...] 10/23/17 1621 [facility] [place] [address] PatientName: FAITH VANCE MR #: [id number] : 1960 Age/Sex: 57/M Req #: [id number] Adm Physician: Ordered by: KHAI WAHL MD Report #: [id number] Location: ER Room/Bed: __ Procedure: [id number] DX/CHEST SINGLE (PORTABLE) Exam Date: 10/23/17 Exam [...] IMPRESSION: No acute cardiopulmonary disease. Dictated by: Eile Barfield M.D. on 10/23/2017 at 14:43 Electronically approved by: Elie Barfield M.D. on 10/23/2017 at 14:43 Dictated By: ELIE BARFIELD MD 1443 Transcribed By: ANIBAL on 10/23/17 1443 COPY TO: KHAI WAHL V MDCT BRAIN WO [place] [address] PatientName: FAITH VANCE MR #: [id number] : 1960 Age/Sex: 56/M Req #: [id number] Adm Physician: Ordered by: JACQUELYN MONTES DE OCA MD Report #: [id number] Location: ER Room/Bed: Procedure: [id number] CT/CT BRAIN WO Exam Date: Exam Time: [...] MONTES DE OCA MDCT CERVICAL SPINE WO [place] [address] PatientName: FAITH VANCE MR #: [id number] : 1960 Age/Sex: 56/M Req #: [id number] [facility] Physician: Ordered by: JACQUELYN MONTES DE OCA MD Report #: [id number] Location: ER Room/Bed: Procedure: [id number] CT/CT CERVICAL SPINE WO Exam Date: Exam [...] 6 COPY TO: JACQUELYN MONTES DE OCA [facility] ([facility] [address] [place] [id number] PatientName: FAITH VANCE MR #: [id number] : 1960 Age/Sex: 56/M Req #: [id number] Adm Physician: Ordered by: JACQUELYN MONTES DE OCA MD Report #: [id number] Location: ER Room/Bed: Procedure: [id number] DX/CHEST SINGLE (PORTABLE) Exam Date: 04/04/17 Exam [...] OCA MDHIP RIGHT 2-3 VW (+/- PELVIS) [place] [address] PatientName: FAITH VANCE MR #: [id number] : 1960 Age/Sex: 56/M Req #: [id number] Adm Physician: Ordered by: JACQUELYN MONTES DE OCA MD Report #: [id number] Location: ER Room/Bed: Procedure: DX/HIP RIGHT 2-3 [...] DE OCA MDSP LUMBAR, COMPLETE MIN 4VW [place] [address] PatientName: FAITH VANCE MR #: [id number] : 1960 Age/Sex: 56/M Req #: [id number] Adm Physician: Ordered by: JACQUELYN MONTES DE OCA MD Report #: [id number] Location: ER Room/Bed: Procedure: DX/SP LUMBAR, COMPLETE [...] JACQUELYN MONTES DE OCA MDUS ABDOMEN COMPLETE [place] [address] PatientName: FAITH VANCE MR #: [id number] : 1960 Age/Sex: 56/M Req #: [id number] Adm Physician: NICHELLE PALACIOS MD Ordered by: SCOTT AMIN MD Report #: [id number] Location: [facility] Room/Bed: [place] [address] Procedure: [id number] US/US ABDOMEN COMPLETE Exam Date: 03/08/17 Exam [...] on 03/08/17 1040 COPY TO: SCOTT AMIN [facility] SINGLE (PORTABLE) [place] [address] PatientName: FAITH VANCE MR #: [id number] : 1960 Age/Sex: 56/M Req #: [id number] Adm Physician: Ordered by: JACQUELYN MONTES DE OCA MD Report #: [id number] Location: ER Room/Bed: Procedure: [id number] DX/CHEST SINGLE (PORTABLE) Exam Date: 03/05/17 Exam [...] A TALBOT MD Transcribed By: ANDREE on 03/05/17534 COPY TO: JACQUELYN MONTES DE OCA MD
--- NOTE | 2022-07-20 08:09 | ER ---
Nurse's Notes [facility] Name: Ernie Rooney Age: 62 yrs Sex: Male : 1960 Arrival Date: 07/20/2022 Time: 07: Bed 8 Private MD: Diagnosis: Abrasion of lower back and pelvis, initial encounter-superficial skin tear Presentation: 07/20 07:25 Chief complaint: EMS states: Skin tear on left buttock from transfer to bed yesterday, hb not bleeding at this time. Coronavirus screen: At this time, the client does not indicate any symptoms associated with coronavirus-19. Ebola Screen: No symptoms or risks identified at this time. Initial Sepsis Screen: Does the patient meet any 2 criteria? No. Patient's initial sepsis screen is negative. Does the patient have a suspected source of infection? No. Patient's initial sepsis screen is negative. Risk Assessment: Do you want to hurt yourself or someone else? Patient reports no desire to harm self or others. Onset of symptoms was July 19, 2022. 07:25 Method Of Arrival: EMS: [facility] hb 07:25 Acuity: TONE 4 hb Triage Assessment: 07:27 General: Appears in no apparent distress. Behavior is calm, cooperative. Pain: Pain hb currently is 5 out of 10 on a pain scale. Neuro: Level of Consciousness is awake, alert, obeys commands, Oriented to person, place, time, situation. Cardiovascular: Patient's skin is warm and dry. Respiratory: Respiratory effort is even, unlabored, Respiratory pattern is regular, symmetrical. Derm: Wound noted right gluteus jeanine Wound is small skin tear, not bleeding. Historical: - Allergies: 07:27 Nitroglycerin; hb - Immunization history:: Adult Immunizations up to date. - Social history:: Smoking status: . Screenin:01 [facility] ED Fall Risk Assessment (Adult) History of falling in the last 3 months, bp including since admission No falls in past 3 months (0 pts). Abuse screen: Denies threats or abuse. Denies injuries from another. Nutritional screening: No deficits noted. Tuberculosis screening: No symptoms or risk factors identified. Assessment: 07:28 General: SEE TRIAGE ASSESSMENT. hb 09:30 Reassessment: DC ON HOLD FOR AMBULANCE TRANSPORT. bp Vital Signs: 07:25 BP 114 / 64; Pulse 88; Resp 16; Temp 98; Pulse Ox 100% ; hb 09:30 BP 123 / 72; Pulse 88; Resp 16; Pulse Ox 99% ; bp ED Course: 07:01 Patient arrived in ED. as6 07:04 Mustapha Cole MD is Attending Physician. caitlyn 07:27 Triage completed. hb 07:27 Arm band placed on. hb 07:53 Khai Hernandez, RN is Primary Nurse. bp 07:57 Ernie Toscano MD is Referral Physician. caitlyn 08:01 Patient has correct armband on for positive identification. Bed in low position. Call bp light in reach. Side rails up X2. 09:45 Wound care: to SKIN TEAR located on coccyx was dressed with Neosporin, Patient bp tolerated well. Administered Medications: 07:51 CANCELLED (Duplicate Order): NS 0.9% 1000 ml IV at 75 ml/hr continuous caitlyn 08:15 Drug: Bactroban (mupirocin) Ointment 2 % 1 application Route: Topical; Site: wound; bp 08:15 Drug: [place] (HYDROcodone-acetaminophen) 10 mg-325 mg 1 tabs Route: PO; bp 09:47 Follow up: Response: No adverse reaction bp Outcome: 08:09 Discharge ordered by . caitlyn 10:27 Patient left the ED. bp Signatures: Mustapha Cole MD MD cha Baxter, Heather, RN RN Khai Hernandez, RN RN bp Enoc Sahu, SHEBA RN as6
--- NOTE | 2022-07-20 08:09 | EDPHYS ---
Phys[facility] Documentation [facility] Name: Ernie Rooney Age: 62 yrs Sex: Male : 1960 Arrival Date: 07/20/2022 Time: 07: Bed 8 Private MD: ED Physician Mustapha Cole HPI: 07/20 07:54 This 62 yrs old Male presents to ER via EMS with complaints of Skin Tear(s). caitlyn 07:54 The patient has a laceration related to:. caitlyn 07:54 The laceration(s) is(are) located on the coccyx. Onset: The symptoms/episode caitlyn began/occurred just prior to arrival. Associated signs and symptoms: The patient has no apparent associated signs or symptoms. The patient has not experienced similar symptoms in the past. Historical: - Allergies: 07:27 Nitroglycerin; hb - Immunization history:: Adult Immunizations up to date. - Social history:: Smoking status: . ROS: 07:55 Constitutional: Negative for fever, chills, and weight loss, Eyes: Negative for injury, caitlyn pain, redness, and discharge, ENT: Negative for injury, pain, and discharge, Neck: Negative for injury, pain, and swelling, Cardiovascular: Negative for chest pain, palpitations, and edema, Respiratory: Negative for shortness of breath, cough, wheezing, and pleuritic chest pain, Abdomen/GI: Negative for abdominal pain, nausea, vomiting, diarrhea, and constipation, Back: Negative for injury and pain, : Negative for injury, bleeding, discharge, and swelling, MS/Extremity: Negative for injury and deformity, Neuro: Negative for headache, weakness, numbness, tingling, and seizure, Psych: Negative for depression, anxiety, suicide ideation, homicidal ideation, and hallucinations, Allergy/Immunology: Negative for hives, rash, and allergies, Endocrine: Negative for neck swelling, polydipsia, polyuria, polyphagia, and marked weight changes, Hematologic/Lymphatic: Negative for swollen nodes, abnormal bleeding, and unusual bruising. 07:55 Skin: Positive for abrasion(s), sacral skin tear, small. Exam: 07:55 Constitutional: This is a well developed, well nourished patient who is awake, alert, caitlyn and in no acute distress. Head/Face: Normocephalic, atraumatic. Eyes: Pupils equal round and reactive to light, extra-ocular motions intact. Lids and lashes normal. Conjunctiva and sclera are non-icteric and not injected. Cornea within normal limits. Periorbital areas with no swelling, redness, or edema. ENT: Nares patent. No nasal discharge, no septal abnormalities noted. Tympanic membranes are normal and external auditory canals are clear. Oropharynx with no redness, swelling, or masses, exudates, or evidence of obstruction, uvula midline. Mucous membranes moist. Neck: Trachea midline, no thyromegaly or masses palpated, and no cervical lymphadenopathy. Supple, full range of motion without nuchal rigidity, or vertebral point tenderness. No Meningismus. Chest/axilla: Normal chest wall appearance and motion. Nontender with no deformity. No lesions are appreciated. Cardiovascular: Regular rate and rhythm with a normal S1 and S2. No gallops, murmurs, or rubs. Normal PMI, no JVD. No pulse deficits. Respiratory: Lungs have equal breath sounds bilaterally, clear to auscultation and percussion. No rales, rhonchi or wheezes noted. No increased work of breathing, no retractions or nasal flaring. Abdomen/GI: Soft, non-tender, with normal bowel sounds. No distension or tympany. No guarding or rebound. No evidence of tenderness throughout. Back: No spinal tenderness. No costovertebral tenderness. Full range of motion. Male : Normal genitalia with no discharge or lesions. MS/ Extremity: Pulses equal, no cyanosis. Neurovascular intact. Full, normal range of motion. Neuro: Awake and alert, GCS 15, oriented to person, place, time, and situation. Cranial nerves II-XII grossly intact. Motor strength 5/5 in all extremities. Sensory grossly intact. Cerebellar exam normal. Normal gait. Psych: Awake, alert, with orientation to person, place and time. Behavior, mood, and affect are within normal limits. 07:55 Skin: lesion(s), located on the coccyx. Vital Signs: 07:25 BP 114 / 64; Pulse 88; Resp 16; Temp 98; Pulse Ox 100% ; hb 09:30 BP 123 / 72; Pulse 88; Resp 16; Pulse Ox 99% ; bp MDM: 07:05 Patient medically screened. caitlyn 07:56 Differential diagnosis: superficial laceration. Data reviewed: vital signs, nurses caitlyn notes. Consideration of Admission/Observation Escalation of care including admission/observation considered. Test considered but Not performed: Labs: no labs, no radiographs. Care significantly affected by the following chronic conditions: Diabetes, Hypertension, Congestive Heart Failure. 07/20 07:05 Order name: EKG; Complete Time: 07:06 caitlyn Administered Medications: 07:51 CANCELLED (Duplicate Order): NS 0.9% 1000 ml IV at 75 ml/hr continuous caitlyn 08:15 Drug: Bactroban (mupirocin) Ointment 2 % 1 application Route: Topical; Site: wound; bp 08:15 Drug: [place] (HYDROcodone-acetaminophen) 10 mg-325 mg 1 tabs Route: PO; bp 09:47 Follow up: Response: No adverse reaction bp Disposition Summary: 07/20/22 08:09 Discharge Ordered Location: Home caitlyn Problem: new caitlyn Symptoms: have improved caitlyn Condition: Stable caitlyn Diagnosis - Abrasion of lower back and pelvis, initial encounter - superficial skin tear caitlyn Followup: caitlyn - With: Private Physician - When: 2 - 3 days - Reason: Recheck today's complaints, Continuance of care, Re-evaluation by your physician Followup: caitlyn - With: Ernie Toscano MD - When: 2 - 3 days - Reason: Recheck today's complaints, Continuance of care, Re-evaluation by your physician Discharge Instructions: - Discharge Summary Sheet caitlyn - Abrasion caitlyn - Skin Tear caitlyn - Skin Tear, Eoca-ey-Onwl caitlyn Forms: - Medication Reconciliation Form caitlyn - Thank You Letter caitlyn - Antibiotic Education caitlyn - Prescription Opioid Use [facility] Prescriptions: - [place] 2 % Topical ointment - apply 1 application by TOPICAL route 3 times per day; 30 gram; Refills: 0, caitlyn Product Selection Permitted Signatures: Dispatcher [employer] EDMustapha Duggan MD MD cha Baxter, Heather, RN RN Khai Carlson RN RN bp Corrections: (The following items were deleted from the chart) 07:51 07:05 Cardiac monitoring ordered. [facility] 07:51 07:05 EKG - Nurse/Tech ordered. [facility] 07:51 07:05 IV Saline Lock ordered. [facility] :51 07:05 Labs collected and sent ordered. [facility] :51 07:05 O2 Sat Monitoring ordered. [facility] 07:51 07:05 NS 0.9% 1000 ml IV at 75 ml/hr continuous ordered. caitlyn brady 07:52 07:05 Oxygen Per Protocol ordered. caitlyn brady
[2022-07-20] MEDS ORDERED: HYDROCODONE/APAP 10/325 TAB ONE (09:42)
[2022-07-20] MEDS ORDERED: MUPIROCIN 2% OINT 22GM TUBE TOP ONE (09:42)
[2022-07-20 10:46] VITALS: BP 120/65; TEMP 97.7; O2SAT 98
--- NOTE | 2022-07-21 17:26 | EKG ---
Test Date: 2022-07-20 Test Time: 23:14:05 Brand Executive: HEATHER MEASUREMENT RESULTS: Intervals: Rate: 96 MT: 172 QRSD: 158 QT: 418 QTc: 528 [place]: P: 37 MT: 172 QRS: -40 T: 99 INTERPRETIVE STATEMENTS: Electronic ventricular pacemaker Compared to ECG 07/19/2022 15:23:01 No significant changes Electronically Signed On 07-21-22 17:25:35 SLIPCOVER CUTTER by Kavin Keenan
== END 2022-07-20 10:27 | disposition home or self-care (01) ==
LOC: ER 06:59
DX: S30.810A Abrasion of lower back and pelvis, initial encounter (principal); Z88.8 Allergy status to other drugs, medicaments and biological substances
CPT/HCPCS: 93005

== ENCOUNTER 2022-07-20 23:05 | Emergency (ER) | payer OTHER ==
--- OUTSIDE RECORDS SUMMARY | 2022-07-20 23:14 | XMS REPORT | Continuity of Care Document ---
:1960 Author Organization [facility] t Address [address] [place] [address] Care Team Providers Name Role Phone MONIKA HALL MD Primary Care Physician [id number] Attending Clinician Unavailable Harshal Zhu Attending Clinician Unavailable Finn Shah Attending Clinician Unavailable Doctor Unassigned, [place] Attending Clinician Unavailable Josselyn Harding RN Attending [...] Attending Clinician Alis Garcia MD Attending Clinician [phone] Kaylyn Calvin MD Attending Clinician Tha Gunter [...] Unavailable Casper RAE, Michael Gaxiola Attending Clinician [phone] Nova RAE, Cortney Law Attending Clinician [phone] Emy SCRUGGS, Rhonda Attending Clinician Dennis Finley MD Attending Clinician Carlos Allen MD Attending Clinician ALEXIS COX Attending Clinician Unavailable JACQUELYN MONTES DE OCA Attending Clinician Unavailable NICHELLE PALACIOS Attending Clinician Unavailable [id number] Admitting Clinician Unavailable Nika Martin Admitting Clinician [...] Admitting Clinician Unavailable Michael Hernandez Admitting Clinician [phone] Malia HALL, Dennis Arreola Admitting Clinician ALEXIS COX Admitting Clinician Unavailable NICHELLE PALACIOS Admitting Clinician Unavailable Payers Payer Name Policy Type Policy Number Effective Date Expiration Date Garfield daugherty 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 Type 2 Type 2 Disease Active 2019- Univers diabetes diabetes 8-29 ity of mellitus mellitus 00:00: [place] without without 00 Medical complicati complicati Br anch on, on, without without long-term long-term current current use of use of insulin insulin Essential Essential Disease Active Uni vers hypertensi hypertensi 01-17 it y of on on 00:00: [place] [id number] Medical Branch Other Other Disease Active Univers hyperlipid hyperlipid 01-17 it y of emia emia 00:00: [place] [address] Medical Branch Stroke Stroke Disease Active Univers 5-12 ity of 00:00: [place] [address] Medical Branch Left-sided Left-sided Disease Active U nivers weakness weakness - ity of 00:00: [place] [facility] Left sided Left sided Disease Active U nivers numbness numbness - ity of 00:00: [place] [facility] S/P admn S/P admn Disease [...] rs angina angina 4-10 ity of 00:00: [place] [facility] Atypical Atypical Disease Active Unive rs chest pain chest pain 2-22 it y of 00:00: [place] [address] Medical Branch Chest pain Chest pain Problem Active [facility] 00 [facility] [place] Coronary CAD Problem Active [facility] artery (coronary [facility] disease artery Patient disease) Medical [place] Diabetic DKA Problem Active [facility] (diabetic Esme es is ketoacidos [facility] Hyperglyce Hyperglyce Problem Active [facility] bambi bambi [facility] Hypertensi Hypertensi Problem Active [facility] on on [facility] Pancreatit Pancreatit Problem Active [facility] is is [facility] Uncontroll Uncontroll Problem Active [facility] ed ed [facility] diabetes diabetes Patien t mellitus mellitus [facility] Allergies, Adverse Reactions, Alerts Allergy Allergy Status Severity Reaction(s) Onset Inactive Treating Comm ents Source Name Type Date Date Clinician No Known DA Active U [facility] 3[facility]22 [place] [facility] 00:00: d 00 [facility] No Known DA Active U [facility] Allergie 3- [place] 00:00: d 00 [facility] No Known DA Active U 2017-05 [facility] Allergie 2-31 Clear s 00:00: Mejia 00 [facility] No Known DA Active U 2017-05 [facility] Allergie 2-31 Clear s 00:00: Mejia 00 [facility] No Known DA Active U [facility] Allergie 3- [place] [facility] 00:00: e 00 [facility] NO KNOWN Drug Active Univers ALLERGIE Class ity of S [place] [facility] Social History Social Habit Start Date Stop Date Quantity Comments Source History of Passive smoker University of tobacco use [place] [facility] History SDOH University o f Alcohol Frequency [place] M edical Branch History SDOH University o f Alcohol Std [place] [facility] Drinks Branch History SDOH University o f Alcohol Binge [place] Medic al Branch History SDOH Food 2022-02-11 2022-02-11 1 Univers ity of Worry 00:00:00 00:00:00 [place] [facility] History SDOH Food 2022-02-11 2022-02-11 1 Univers ity of Scarcity 00:00:00 00:00:00 [place] [facility] History SDOH 2022-02-11 2022-02-11 2 University o f Transport Med 00:00:00 00:00:00 [place] Medic al Branch History SDOH 2022-02-11 2022-02-11 2 University o f Transport Non-Med 00:00:00 00:00:00 [facility] edical Branch Exposure to 2022-01-30 2022-02-09 Not sure University of SARS-CoV-2 00:00:00 20:09:00 [place] [facility] (event) Branch Tobacco use and 2022-02-09 2022-02-09 Smokeless tobacco Un iversity of exposure 00:00:00 00:00:00 non-user [facility] [place] Branch Alcohol intake 2022-02-09 2022-02-09 1.71 /d University of 00:00:00 00:00:00 [facility] Tobacco Comment 2022-02-09 2022-02-09 quit 15 years ago Un iversity of 00:00:00 00:00:00 [facility] Education 2021-10-27 2021-10-27 9 University of 00:00:00 00:00:00 [facility] History SDOH 2020-03-16 2020-03-16 3 University o f Financial 00:00:00 00:00:00 [facility] Alcohol Comment 2019-07-18 2019-07-18 quit drinking Univer sity of 00:00:00 00:00:00 2013 but drank [facility] heavily before Branch this Sex [birth year] At [birth year] LUCY Sanders 00:00:00 00:00:00 Medical Center Smoking Status Start Date Stop Date Source Ex-smoker 2022-02-09 00:00:00 2022-02-09 00:00:00 Universi ty of [facility] Medications Ordered Filled Start Stop Current Ordering Indication Dosage Frequency Signature Comments Components Source Medication Medication Date Date Medication? Clinician (SIG) Name Name aspirin 81 2021- No [id number] 81mg Take 1 Univers mg chewable 9-23 10-24 tablet by it y of tablet 00:00: 04:59 mouth [place] 00 :00 daily with [facility] for 30 days. glipiZIDE 5 2021- No [id number] 5mg Take 1 Univers mg tablet 9-23 10-24 tablet by ity of 00:00: 04:59 mouth in [place] 00 :00 the Medical morning Branch for 30 days. levothyroxi 2021- No [id number] 50ug Take 1 Univers ne 50 mcg 9-23 10-24 tablet by ity of tablet 00:00: 04:59 mouth [place] 00 :00 every Medical morning Branch for 30 days. lisinopriL 2021- No [id number] 2.5mg Take 1 Univers 2.5 mg 9-23 10-24 tablet by ity of tablet 00:00: 04:59 mouth in [place] 00 :00 the Medical morning Branch for 30 days. spironolact 2021- No [id number] 25mg Take 1 Univers one 25 mg 9-23 10-24 tablet by ity of tablet 00:00: 04:59 mouth in [place] 00 :00 the Medical morning Branch for 30 days. tamsulosin 2021- No [id number] .4mg Take 1 Univers 0.4 mg 24 9-23 10-24 capsule by ity of hr capsule 00:00: 04:59 mouth in [facility] 00 :00 the Medical morning Branch for 30 days. aspirin 81 2021- No [id number] 81mg Take 1 Univers mg chewable 9-23 10-24 tablet by it y of tablet 00:00: 04:59 mouth [place] 00 :00 daily with [facility] breakfast Branch for 30 days. glipiZIDE 5 2021- No [id number] 5mg Take 1 Univers mg tablet 9- 10-24 tablet by ity of 00:00: 04:59 mouth in [place] 00 :00 the [facility] morning [place] for 30 days. levothyroxi 2021- No [id number] 50ug Take 1 Univers ne 50 mcg 9-23 10-24 tablet by ity of tablet 00:00: 04:59 mouth [place] 00 :00 every [facility] morning Branch for 30 days. lisinopriL 2021- No [id number] 2.5mg Take 1 Univers 2.5 mg 9-23 10-24 tablet by ity of tablet 00:00: 04:59 mouth in [place] 00 :00 the [facility] morning [place] for 30 days. spironolact 2021- No [id number] 25mg Take 1 Univers one 25 mg 9-23 10-24 tablet by ity of tablet 00:00: 04:59 mouth in [place] 00 :00 the [facility] for 30 days. tamsulosin 2021- No [id number] .4mg Take 1 Univers 0.4 mg 24 9-23 10-24 capsule by ity of hr capsule 00:00: 04:59 mouth in [facility] 00 :00 the [facility] morning [place] for 30 days. sulfur 2021- No [id number] 5mL 5 mL, Unive rs hexafluorid 02-10 Intravenou i ty of e microsphr 16:30: 16:30 s, ONCE, 1 [place] (LUMASON) 00 :00 dose, On Medica l injection 5 Annie Branch mL 02/10/22 at 1130, Routine
member of congress approving Restricted medication : NINFA CASTILLO K.HHortensia traMADoL 0 Yes 50mg 50 mg, Univers (ULTRAM) 02-10 Oral, ity of tablet 50 15:10: Q6HPRN, [place] mg 57 Starting Medical on [facility] 02/10/22 at 1010, Until Discontinu ed, Routine, Pain (scale 7-10) lisinopriL 0 Yes 2.5mg 2.5 mg, Uni vers (PRINIVIL,Z 02-10 Oral, ity of ESTRIL) 14:00: DAILY, [place] tablet 2.5 00 First dose Med ical mg on [facility] Branch 02/10/22 at 0900, Until Discontinu ed, Routine glipiZIDE Yes 5mg 5 mg, Univers (GLUCOTROL) 02-10 Oral, ity of tablet 5 mg 14:00: DAILY, [place] 00 First dose Medical on [facility] 02/10/22 at 0900, Until Discontinu ed, Routine enoxaparin 0 Yes 30mg 30 mg, Unive rs (LOVENOX) 02-10 Subcutaneo ity of injection 14:00: [place], DAILY, [place] 30 mg 00 First dose Medical on [facility] 02/10/22 at 0900, Until Discontinu ed, Routine levothyroxi Yes 50ug 50 mcg, Uni vers ne 02-10 Oral, ity of (SYNTHROID) 11:00: QAM-0600, [place] tablet 50 00 First dose Medi uriel mcg on [facility] 02/10/22 at 0600, Until Discontinu ed, Routine morpHINE (2 2021- No 2mg 2 mg, Slow Univers mg/mL) 02-10 IV Push, ity of injection 2 08:45: 08:01 ONCE, 1 [place] mg 00 :00 dose, On [facility] 02/10/22 at 0345, Routine furosemide 0 Yes 20mg 20 mg, IV Un char[place] (LASIX) 02-10 Push, Q8H, ity of injection 04:15: First dose [place] 20 mg 00 on [facility] 02/09/22 at Branch 2315, Until Discontinu [...] s mg 00 First dose Medical on [facility] Branch 02/09/22 at 2315, Until Discontinu [...] IV ity of (D50W) 04:01: Push, PRN, [place] injection 56 Starting Medica l 25 mL on Wed Branch 02/09/22 at 2301, Until Discontinu ed, PIERRE, Blood Glucose < or = 70 mg/dL and patient is unable to swallow or has mental status changes. atorvastati 2021- No [id number] 40mg Take 1 Univers n 40 mg -12 03-23 tablet by ity of tablet 00:00: 04:59 mouth at [place] 00 :00 bedtime Medical for 30 Branch days. metoprolol 2021- No [id number] 12.5mg Take 0.5 Univers succinate - 10-23 tablets by ity of XL 25 mg 24 00:00: 04:59 mouth in [place] hr tablet 00 :00 the Medical morning Branch for 30 days. atorvastati 2021- No [id number] 40mg Take 1 Univers n 40 mg -12 03-23 tablet by ity of tablet 00:00: 04:59 mouth at [place] 00 :00 bedtime Medical for 30 Branch days. metoprolol 2021- No [id number] 12.5mg Take 0.5 Univers succinate 02-1023 tablets [...] at 0215, 1 mL gabapentin 2021- No [id number] 300mg Take 1 Univers 300 mg 11-05 capsule by ity of capsule 00:00: 04:59 mouth 3 [place] 00 :00 (three) Medical times Branch daily for 10 days. gabapentin 2021- No [id number] 300mg Take 1 Univers 300 mg 11-05 capsule by ity of capsule 00:00: 04:59 mouth 3 [place] 00 :00 (three) Medical times Branch daily for 10 days. aspirin 81 2021- No [id number] 81mg Take 1 Univers mg chewable 6-16 07-17 tablet by it y of tablet 00:00: 04:59 mouth [place] 00 :00 daily for Medical 30 days. Branch aspirin 81 2021- No [id number] 81mg Take 1 Univers mg chewable 6-16 07-17 tablet by it y of tablet 00:00: 04:59 mouth [place] 00 :00 daily for Medical 30 days. Branch aspirin 81 2021- No [id number] 81mg Take 1 Univers mg chewable 6-16 07-17 tablet by it y of tablet 00:00: 04:59 mouth [place] 00 :00 daily for Medical 30 days. Branch proMETHazin Yes [id number] 25mg Take 1 Univers e 25 mg 6-03 tablet by ity of tablet 00:00: mouth [place] 00 every 6 Medical (six) Branch hours as needed for Nausea and Vomiting (N/V). proMETHazin Yes [id number] 25mg Take 1 Univers e 25 mg 6-03 tablet by ity of tablet 00:00: mouth [place] 00 every 6 Medical (six) Branch hours as needed for Nausea and Vomiting (N/V). proMETHazin 2021-0 Yes [id number] 25mg Take 1 Univers e 25 mg 6-03 tablet by ity of tablet 00:00: mouth [place] 00 every 6 Medical (six) Branch hours as needed for Nausea and Vomiting (N/V). proMETHazin 2021-0 Yes [id number] 25mg Take 1 Univers e 25 mg 6-03 tablet by ity of tablet 00:00: mouth [place] 00 every 6 Medical (six) Branch hours as needed for Nausea and Vomiting (N/V). proMETHazin 2021-0 Yes [id number] 25mg Take 1 Univers e 25 mg 6-03 tablet by ity of tablet 00:00: mouth [place] 00 every 6 Medical (six) Branch hours as needed for Nausea and Vomiting (N/V). proMETHazin 2021-0 Yes [id number] 25mg Take 1 Univers e 25 mg 6-03 tablet by ity of tablet 00:00: mouth [place] 00 every 6 Medical (six) Branch hours as needed for Nausea and Vomiting (N/V). fenofibrate 2021- No [id number] 134mg Take 1 Univers micronized 10-19- capsule by it y of 134 mg 00:00: 04:59 mouth [place] capsule 00 :00 daily for Medical 30 days. Branch lisinopriL 2021- No [id number] 2.5mg Take 1 Univers 2.5 mg 10-19- tablet by ity of tablet 00:00: 04:59 mouth [place] 00 :00 daily for Medical 30 days. Branch fenofibrate 2021- No [id number] 134mg Take 1 Univers micronized 10-19- capsule by it y of 134 mg 00:00: 04:59 mouth [place] capsule 00 :00 daily for Medical 30 days. Branch lisinopriL 2021- No [id number] 2.5mg Take 1 Univers 2.5 mg 10-19- tablet by ity of tablet 00:00: 04:59 mouth [place] 00 :00 daily for Medical 30 days. Branch fenofibrate 2021- No [id number] 134mg Take 1 Univers micronized -19 12- capsule by it y of 134 mg 00:00: 04:59 mouth [place] capsule 00 :00 daily for Medical 30 days. Branch lisinopriL 2021- No [id number] 2.5mg Take 1 Univers 2.5 mg -19 12- tablet by ity of tablet 00:00: 04:59 mouth [place] 00 :00 daily for Medical 30 days. Branch furosemide 2021- No [id number] 40mg Take 1 Univers 40 mg 5-30 -30 tablet by ity of tablet 00:00: 04:59 mouth [place] 00 :00 every Medical morning Branch and evening for 30 days. apixaban 5 2021- No [id number] 5mg Take 1 Univ ers mg tablet -30 -30 tablet by ity of 00:00: 04:59 mouth 2 [place] 00 :00 (two) Medical times [place] daily for 30 days. Indication s: atrial fibrillati on calcitrioL 2021- No [id number] .5ug Take 1 Univers 0.5 mcg -30 -30 capsule by ity o f capsule 00:00: 04:59 mouth [place] 00 :00 daily for Medical 30 days. [place] insulin NPH 2021- No [id number] 5U inject 5 Univers (HUMULIN N 5-30 -30 Units ity of NPH U-100 00:00: 04:59 under the [place] INSULIN) 00 :00 skin every Medic al 100 unit/mL evening Branc h injection for 30 days. atorvastati 2021- No [id number] 40mg Take 1 Univers n 40 mg 5-30 -30 tablet by ity of tablet 00:00: 04:59 mouth at [place] 00 :00 bedtime Medical for 30 Branch days. carvediloL 2021- No [id number] 3.125mg Take 1 Univers 3.125 mg 5-30 -30 tablet by ity o f tablet 00:00: 04:59 mouth 2 [place] 00 :00 (two) Medical times [place] daily with meals for 30 days. furosemide 2021- No [id number] 40mg Take 1 Univers 40 mg 5-30 [...] s: atrial fibrillati on calcitrioL 2021- No [id number] .5ug Take 1 Univers 0.5 mcg 5-30 06-30 capsule by ity o f capsule 00:00: 04:59 mouth [place] 00 :00 daily for Medical 30 days. Branch insulin NPH 2021- No [id number] 5U inject 5 Univers (HUMULIN N 5-30 06-30 Units ity of NPH U-100 00:00: 04:59 under the [place] INSULIN) 00 :00 skin every Medic al 100 unit/mL evening Branc h injection for 30 days. atorvastati 2021- No [id number] 40mg Take 1 Univers n 40 mg 5-30 06-30 tablet by ity of tablet 00:00: 04:59 mouth at [place] 00 :00 bedtime Medical for 30 Branch days. carvediloL 2021- No [id number] 3.125mg Take 1 Univers 3.125 mg 5-30 06-30 tablet by ity o f tablet 00:00: 04:59 mouth 2 [place] 00 :00 (two) Medical times Branch daily with meals for 30 days. furosemide 2021- No [id number] 40mg Take 1 Univers 40 mg 5-30 [...] s: atrial fibrillati on calcitrioL 2021- No [id number] .5ug Take 1 Univers 0.5 mcg 5-30 06-30 capsule by ity o f capsule 00:00: 04:59 mouth [place] 00 :00 daily for Medical 30 days. Branch insulin NPH 2021- No [id number] 5U inject 5 Univers (HUMULIN N 5-30 06-30 Units ity of NPH U-100 00:00: 04:59 under the [place] INSULIN) 00 :00 skin every Medic al 100 unit/mL evening Branc h injection for 30 days. atorvastati 2021- No [id number] 40mg Take 1 Univers n 40 mg 5-30 -30 tablet by ity of tablet 00:00: 04:59 mouth at [place] 00 :00 bedtime Medical for 30 Branch days. carvediloL 2021- No [id number] 3.125mg Take 1 Univers 3.125 mg 5-30 -30 tablet by ity o f tablet 00:00: 04:59 mouth 2 [place] 00 :00 (two) Medical times Branch daily with meals for 30 days. metFORMIN Yes [id number] 500mg Take 1 U nivers 500 mg 3-02 tablet by ity of tablet 00:00: mouth [place] (two) Medical times Branch daily with meals. metFORMIN Yes [id number] 500mg Take 1 U nivers 500 mg 3-02 tablet by ity of tablet 00:00: mouth [place] (two) Medical times Branch daily with meals. metFORMIN Yes [id number] 500mg Take 1 U nivers 500 mg 3-02 tablet by ity of tablet 00:00: mouth [place] (two) Medical times Branch daily with meals. metFORMIN Yes [id number] 500mg Take 1 U nivers 500 mg 3-02 tablet by ity of tablet 00:00: mouth [place] (two) Medical times Branch daily with meals. metFORMIN Yes [id number] 500mg Take 1 U nivers 500 mg 3-02 tablet by ity of tablet 00:00: mouth [place] (two) Medical times Branch daily with meals. metFORMIN 0 Yes [id number] 500mg Take 1 U nivers 500 mg 3-02 tablet by ity of tablet 00:00: mouth 2 [place] (two) Medical times Branch daily with meals. albuterol Yes [id number] 2{puff} Inhale 2 Univers 90 2-21 Puffs 2 ity of mcg/actuati 00:00: (two) [place] on inhaler 00 times Medical daily. Branch collagenase Yes [id number] Use as Univers 250 2-21 directed ity of unit/gram 00:00: by office Juan J as ointment 00 Medical Branch cyclobenzap Yes [id number] 10mg Take 1 Univers rine 10 mg 2-21 tablet by ity of tablet 00:00: mouth 2 [place] 00 (two) Medical times Branch daily as needed for Muscle Spasms. dextrometho Yes [id number] 10mL Take 10 mL Univers rphan-guaif 2-21 [...] for Pain (scale 4-6). melatonin 3 Yes [id number] 3mg Take 1 Univers mg tablet 2-21 tablet by ity o f 00:00: mouth at [place] 00 bedtime. Medical Branch ondansetron Yes [id number] 4mg Take 1 Univers 4 mg 2-21 tablet by ity of disintegrat 00:00: mouth [place] ing tablet 00 every 8 Medica l (eight) Branch hours as needed for Nausea and Vomiting (N/V). albuterol Yes [id number] 2{puff} Inhale 2 Univers 90 2-21 Puffs 2 ity of mcg/actuati 00:00: (two) [place] on inhaler 00 times Medical daily. Branch collagenase Yes [id number] Use as Univers 250 2-21 directed ity of unit/gram 00:00: by office Juan J as ointment 00 Medical Branch cyclobenzap Yes [id number] 10mg Take 1 Univers rine 10 mg 2-21 tablet by ity of tablet 00:00: mouth 2 [place] 00 (two) Medical times Branch daily as needed for Muscle Spasms. dextrometho Yes [id number] 10mL Take 10 mL Univers rphan-guaif 2-21 [...] for Pain (scale 4-6). melatonin 3 Yes [id number] 3mg Take 1 Univers mg tablet 2-21 tablet by ity o f 00:00: mouth at [place] 00 bedtime. Medical Branch ondansetron Yes [id number] 4mg Take 1 Univers 4 mg 2-21 tablet by ity of disintegrat 00:00: mouth [place] ing tablet 00 every 8 Medica l (eight) Branch hours as needed for Nausea and Vomiting (N/V). albuterol Yes [id number] 2{puff} Inhale 2 Univers 90 2-21 Puffs 2 ity of mcg/actuati 00:00: (two) [place] on inhaler 00 times Medical daily. Branch collagenase Yes [id number] Use as Univers 250 2-21 directed ity of unit/gram 00:00: by office Juan J as ointment 00 Medical Branch cyclobenzap Yes [id number] 10mg Take 1 Univers rine 10 mg 2-21 tablet by ity of tablet 00:00: mouth 2 [place] 00 (two) Medical times Branch daily as needed for Muscle Spasms. dextrometho Yes [id number] 10mL Take 10 mL Univers rphan-guaif 2-21 [...] for Pain (scale 4-6). melatonin 3 Yes [id number] 3mg Take 1 Univers mg tablet 2-21 tablet by ity o f 00:00: mouth at [place] 00 bedtime. Medical Branch ondansetron Yes [id number] 4mg Take 1 Univers 4 mg 2-21 tablet by ity of disintegrat 00:00: mouth [place] ing tablet 00 every 8 Medica l (eight) Branch hours as needed for Nausea and Vomiting (N/V). albuterol Yes [id number] 2{puff} Inhale 2 Univers 90 2-21 Puffs 2 ity of mcg/actuati 00:00: (two) [place] on inhaler 00 times Medical daily. Branch collagenase Yes [id number] Use as Univers 250 2-21 directed ity of unit/gram 00:00: by office Juan J as ointment 00 Medical Branch cyclobenzap Yes [id number] 10mg Take 1 Univers rine 10 mg 2-21 tablet by ity of tablet 00:00: mouth 2 [place] 00 (two) Medical times Branch daily as needed for Muscle Spasms. melatonin 3 Yes [id number] 3mg Take 1 Univers mg tablet 2-21 tablet by ity o f 00:00: mouth at [place] 00 bedtime. Medical Branch ondansetron Yes [id number] 4mg Take 1 Univers 4 mg 2-21 tablet by ity of disintegrat 00:00: mouth [place] ing tablet 00 every 8 Medica l (eight) Branch hours as needed for Nausea and Vomiting (N/V). albuterol Yes [id number] 2{puff} Inhale 2 Univers 90 2-21 Puffs 2 ity of mcg/actuati 00:00: (two) [place] on inhaler 00 times Medical daily. Branch collagenase Yes [id number] Use as Univers 250 2-21 directed ity of unit/gram 00:00: by office Juan J as ointment 00 Medical Branch cyclobenzap Yes [id number] 10mg Take 1 Univers rine 10 mg 2-21 tablet by ity of tablet 00:00: mouth 2 [place] 00 (two) Medical times Branch daily as needed for Muscle Spasms. melatonin 3 Yes [id number] 3mg Take 1 Univers mg tablet 2-21 tablet by ity o f 00:00: mouth at [place] 00 bedtime. Medical Branch ondansetron Yes [id number] 4mg Take 1 Univers 4 mg 2-21 tablet by ity of disintegrat 00:00: mouth [place] ing tablet 00 every 8 Medica l (eight) Branch hours as needed for Nausea and Vomiting (N/V). albuterol Yes [id number] 2{puff} Inhale 2 Univers 90 2-21 Puffs 2 ity of mcg/actuati 00:00: (two) [place] on inhaler 00 times Medical daily. Branch collagenase Yes [id number] Use as Univers 250 2-21 directed ity of unit/gram 00:00: by office Juan J as ointment 00 Medical Branch cyclobenzap Yes [id number] 10mg Take 1 Univers rine 10 mg 2-21 tablet by ity of tablet 00:00: mouth 2 [place] 00 (two) Medical times Branch daily as needed for Muscle Spasms. melatonin 3 Yes [id number] 3mg Take 1 Univers mg tablet 2-21 tablet by ity o f 00:00: mouth at [place] 00 bedtime. Medical Branch ondansetron Yes [id number] 4mg Take 1 Univers 4 mg 2-21 tablet by ity of disintegrat 00:00: mouth [place] ing tablet 00 every 8 Medica l (eight) Branch hours as needed for Nausea and Vomiting (N/V). dextrometho 2021- No [id number] 10mL Take 10 mL Univers rphan-guaif 07-12 [...] Brooke Frankel 00:00: 00:00 Patient 00 :00 [facility] Diflunisal Diflunisal 2015- No Todd Wynn [address] [facility] (Dolobid) (Dolobid) 01-17 [facility] 500 Mg 500 Mg 00:00: 00:00 Patient Tablet, 500 Tablet, 500 00 :00 M edical Mg Oral Mg Oral Center Ondansetron Ondansetron 2015- No Todd Wynn [address] [facility] Hcl Hcl 01-17 [place] [facility] (Zofran*) 4 (Zofran*) 4 [...] Yes [address] [address] Mesylate Mesylate [facility] (Cardura) 8 (Cardura) 8 P atient [...] nophen nophen needed for [place] nt ([place] ([facility] 10-325 10-325 Center Tablet) 1 [...] ukes Mg Tablet Mg Tablet Patie nt [facility] Nitroglycer Nitroglycer Yes As Needed [facility] (Nitrostat) (Nitrostat) P atient 0.4 Mg 0.4 Mg Medical Tab.subl Tab.subl Center Omeprazole Omeprazole Yes [address] 20 Mg 20 Mg [facility] Capsule.dr Lind. [facility] Simvastatin Simvastatin Yes [address] 80 Mg 80 Mg [facility] Tablet Tablet Patient [facility] Tamsulosin Tamsulosin Yes Daily [facility] Hcl 0.4 Mg Hcl 0.4 Mg Esme es Cap.er.24h Cap.er.24h [facility] Tramadol Tramadol Yes [address] Hcl Hcl Daily as [facility] (Ultram) 50 (Ultram) 50 needed for Patient Mg Tablet Mg Tablet [facility] Venlafaxine Venlafaxine Yes [address] Hcl 75 Mg Hcl 75 Mg [facility] Tab Tab Patient [facility] Albuterol Albuterol 2017- No 1 Twice A [...] 06-17 [facility] Capsule., Capsule., 00:00 Patient :00 [facility] Insulin Insulin 90 Twice A [facility] S [...] 25 Mg Oral 25 Mg Oral :00 [facility] Albuterol Albuterol As Needed [facility] Sulfate Sulfate 11-23 as needed Esme es (Ventolin (Ventolin 00:00 for Manjula ent Hfa) 18 Gm Hfa) 18 Gm :00 [facility] Medical Hfa.aer.ad, Hfa.aer.ad, Of Breath [place] 90 Mcg 90 Mcg Inhalation Inhalation Dicyclomine Dicyclomine Twice A [facility] Hcl 10 Mg Hcl 10 Mg 11-23 Day Luke s Capsule, 10 Capsule, 10 00:00 Patient Mg Oral Mg Oral :00 [facility] Methocarbam Methocarbam [address] ol [...] [facility] Pregabalin Pregabalin 2013- No 150 [...] Immunization Date Status Comments [facility] e Immunization Name Name Influenza Virus 2021-01-16 Completed Universit y of Vaccine 00:00:00 [facility] Influenza Virus 2021-01-16 Completed Universit y of Vaccine 00:00:00 [facility] Influenza Virus 2021-01-16 Completed Universit y of Vaccine 00:00:00 [facility] Influenza Virus 2021-01-16 Completed Universit y of Vaccine 00:00:00 [facility] Influenza Virus 2021-01-16 Completed Universit y of Vaccine 00:00:00 [facility] Influenza Virus 2021-01-16 Completed Universit y of Vaccine 00:00:00 [facility] SARS-COV-2 COVID-19 2020-10-16 Completed Unive rsity of PEDRO/J&J VACCINE 00:00:00 [facility] SARS-COV-2 COVID-19 2020-10-16 Completed Unive rsity of PEDRO/J&J VACCINE 00:00:00 [facility] SARS-COV-2 COVID-19 2020-10-16 Completed Unive rsity of PEDRO/J&J VACCINE 00:00:00 [facility] SARS-COV-2 COVID-19 2020-10-16 Completed Unive rsity of PEDRO/J&J VACCINE 00:00:00 [facility] SARS-COV-2 COVID-19 2020-10-16 Completed Unive rsity of PEDRO/J&J VACCINE 00:00:00 [facility] SARS-COV-2 COVID-19 2020-10-16 Completed Unive ity of PEDRO/J&J VACCINE 00:00:00 [facility] Influenza Virus 2020-01-21 Completed Universit y of Vaccine 00:00:00 [facility] Influenza Virus 2020-01-21 Completed Universit y of Vaccine 00:00:00 [facility] Influenza Virus 2020-01-21 Completed Universit y of Vaccine 00:00:00 [facility] Influenza Virus 2020-01-21 Completed Universit y of Vaccine 00:00:00 [facility] Influenza Virus 2020-01-21 Completed Universit y of Vaccine 00:00:00 [facility] Influenza Virus 2020-01-21 Completed Universit y of Vaccine 00:00:00 [facility] Zoster Vaccine 2019-07-17 Completed University of Recombinant 00:00:00 [facility] Zoster Vaccine 2019-07-17 Completed University of Recombinant 00:00:00 [facility] Zoster Vaccine 2019-07-17 Completed University of Recombinant 00:00:00 [facility] Zoster Vaccine 2019-07-17 Completed University of Recombinant 00:00:00 [facility] Zoster Vaccine 2019-07-17 Completed University of Recombinant 00:00:00 [facility] Zoster Vaccine 2019-07-17 Completed University of Recombinant 00:00:00 [facility] Td 2019-03-29 Completed University of 00:00:00 [facility] Td 2019-03-29 Completed University of 00:00:00 [facility] Td 2019-03-29 Completed University of 00:00:00 [facility] Td 2019-03-29 Completed University of 00:00:00 [facility] Td 2019-03-29 Completed University of 00:00:00 [facility] Td 2019-03-29 Completed University of 00:00:00 [facility] Influenza Virus 2018-02-18 Completed Universit y of Vaccine 00:00:00 [facility] Pneumococcal 2018-02-18 Completed University o f Polysaccharide, 00:00:00 [place] [facility] PPSV23 (PNEUMOVAX) [place] Influenza Virus 2018-02-18 Completed Universit y of Vaccine 00:00:00 [facility] Pneumococcal 2018-02-18 Completed University o f Polysaccharide, 00:00:00 [place] [facility] PPSV23 (PNEUMOVAX) [place] Influenza Virus 2018-02-18 Completed Universit y of Vaccine 00:00:00 [facility] Pneumococcal 2018-02-18 Completed University o f Polysaccharide, 00:00:00 [place] [facility] PPSV23 (PNEUMOVAX) Branch Influenza Virus 2018-02-18 Completed Universit y of Vaccine 00:00:00 [facility] Pneumococcal 2018-02-18 Completed University o f Polysaccharide, 00:00:00 [place] [facility] PPSV23 (PNEUMOVAX) Branch Influenza Virus 2018-02-18 Completed Universit y of Vaccine 00:00:00 [facility] Pneumococcal 2018-02-18 Completed University o f Polysaccharide, 00:00:00 [place] [facility] PPSV23 (PNEUMOVAX) Branch Influenza Virus 2018-02-18 Completed Universit y of Vaccine 00:00:00 [facility] Pneumococcal 2018-02-18 Completed University o f Polysaccharide, 00:00:00 [place] [facility] PPSV23 (PNEUMOVAX) Branch Influenza Virus 2008-03-19 Completed Universit y of Vaccine 00:00:00 [facility] Pneumococcal 2008-03-19 Completed University o f Polysaccharide, 00:00:00 [place] [facility] PPSV23 (PNEUMOVAX) Branch Influenza Virus 2008-03-19 Completed Universit y of Vaccine 00:00:00 [facility] Pneumococcal 2008-03-19 Completed University o f Polysaccharide, 00:00:[address] [facility] ical PPSV23 (PNEUMOVAX) Branch Influenza Virus 2008-03-19 Completed Universit y of Vaccine 00:00:00 [facility] Pneumococcal 2008-03-19 Completed University o f Polysaccharide, 00:00:[address] [facility] ical PPSV23 (PNEUMOVAX) Branch Influenza Virus 2008-03-19 Completed Universit y of Vaccine 00:00:00 [facility] Pneumococcal 2008-03-19 Completed University o f Polysaccharide, 00:00:00 [place] [facility] PPSV23 (PNEUMOVAX) Branch Influenza Virus 2008-03-19 Completed Universit y of Vaccine 00:00:00 [facility] Pneumococcal 2008-03-19 Completed University o f Polysaccharide, 00:00:00 [place] [facility] PPSV23 (PNEUMOVAX) Branch Influenza Virus 2008-03-19 Completed Universit y of Vaccine 00:00:00 [facility] Pneumococcal 2008-03-19 Completed University o f Polysaccharide, 00:00:00 [place] [facility] PPSV23 (PNEUMOVAX) [place] Vital Signs Vital Name Observation Time Observation Value Comments Source Systolic blood 2022-02-10 105 mm[Hg] University of pressure 16:35:[address] [facility] Diastolic blood 2022-02-10 57 mm[Hg] University o f pressure 16:35:[address] [facility] Heart rate 2022-02-10 65 /min University of 16:35:[address] [facility] Body temperature 2022-02-10 36.22 Sandy University of 16:35:[address] [facility] Respiratory rate 2022-02-10 18 /min University of 16:35:[address] [facility] Oxygen saturation 2022-02-10 98 /min University of in Arterial blood 16:35:00 [place] [facility]iel by Pulse oximetry Branch Body weight 2022-02-10 74.98 kg University of 08:16:00 [facility] BMI 2022-02-10 25.89 kg/m2 University of 08:16:00 [facility] Body height 2022-02-10 170.2 cm Height before University of 01:18:00 Bilat BKA [facility] Systolic blood 2021-11-09 124 mm[Hg] University of pressure 23:00:00 [facility] Diastolic blood 2021-11-09 69 mm[Hg] University o f pressure 23:00:[address] [facility] Heart rate 2021-11-09 72 /min University of 23:00:[address] [facility] Respiratory rate 2021-11-09 25 /min University of 23:00:00 [facility] Oxygen saturation 2021-11-09 98 /min University of in Arterial blood 23:00:00 [facility] uriel by Pulse oximetry Branch Body temperature 2021-11-09 37.22 Sandy University of 20:28:39 [place] [facility] Body height 2021-11-09 170.2 cm University of 20:16:00 [facility] Body weight 2021-11-09 71.215 kg University of 20:16:00 [facility] BMI 2021-11-09 24.59 kg/m2 University of 20:16:[address] [facility] Systolic blood 2021-11-05 134 mm[Hg] University of pressure 10:00:[address] [facility] Diastolic blood 2021-11-05 78 mm[Hg] University o f pressure 10:00:[address] [facility] Heart rate 2021-11-05 81 /min University of 10:00:00 [facility] Body temperature 2021-11-05 36.28 Sandy University of 08:10:00 [facility] Respiratory rate 2021-11-05 18 /min [facility] 08:00:00 [facility] Oxygen saturation 2021-11-05 99 /min [facility] Arterial blood 08:00:00 [facility] by Pulse oximetry [place] Body height 2021-11-05 170.2 cm [facility] 05:48:00 [facility] Body weight 2021-11-05 71.215 kg [facility] 05:48:00 [facility] BMI 2021-11-05 24.59 kg/m2 [facility] 05:48:00 [facility] Procedures Procedure Date / Time Performing Clinician Source Performed INSURANCE CORRESPONDENCE 2022-04-19 06:01:00 Doctor Unassigned, [facility] [place] [facility] TRANSTHORACIC ECHO (TTE) 2022-02-10 13:16:00 Martha Rowe [facility] COMPLETE W/ CONTRAST Medical Bra nch PHOSPHORUS 2022-02-10 10:22:00 Martha Rowe [facility] MAGNESIUM 2022-02-10 10:22:00 Martha Rowe [facility] TROPONIN I 2022-02-10 10:22:00 Martha Rowe [facility] COMP. METABOLIC PANEL 2022-02-10 10:22:00 Martha Rowe [facility] ([id number]) [facility] CBC WITH DIFF 2022-02-10 10:22:00 Martha Rowe [facility] CREATINE KINASE 2022-02-10 04:37:00 Martha Rowe [facility] URIC ACID 2022-02-10 04:37:00 Martha Rowe [facility] FERRITIN SERUM 2022-02-10 04:37:00 Martha Rowe [facility] FOLATE 2022-02-10 04:37:00 Martha Rowe [facility] TROPONIN I 2022-02-10 04:37:00 Martha Rowe [facility] THYROID STIMULATING 2022-02-10 04:37:00 Martha Rowe [facility] HORMONE Medical Branch LIPID PANEL ([id number])(TOTAL 2022-02-10 04:37:00 Martha Rowe [facility] CHOLESTEROL, Medical Branch TRIGLYCERIDES, HDL) IRON PANEL 2022-02-10 04:37:00 Martha Rowe [facility] GLYCOSYLATED HEMOGLOBIN 2022-02-10 04:37:00 Martha Rowe [facility] (A1C) [facility] N-TERMINAL PRO-BNP 2022-02-10 04:37:00 Martha Rowe [facility] VITAMIN D, 25-OH 2022-02-10 04:37:00 Jae daisy [facility] COVID-19 (ID NOW RAPID 2022-02-10 04:37:00 Martha Rowe [facility] TESTING) [facility] B-TYPE NATRIURETIC FACTOR 2022-01-30 18:10:[address] [facility] (BNP) Center XR CHEST 1 VW 2021-11-09 21:07:00 Troy Ku Mckenzie [facility] POCT GLUCOSE (AUTOMATED) 2021-11-09 20:25:00 Troy Ku [facility] MAGNESIUM 2021-11-09 20:19:00 Troy Ku [facility] TROPONIN I 2021-11-09 20:19:00 Troy Ku [facility] COMP. METABOLIC PANEL 2021-11-09 20:19:00 Troy Ku [facility] ([id number]) [facility] CBC WITH DIFF 2021-11-09 20:19:00 Troy Ku [facility] N-TERMINAL PRO-BNP 2021-11-09 20:19:00 Troy Ku [facility] XR CHEST 1 VW 2021-11-05 06:38:35 Mihaela Martin [facility] [id number] 2020-08-11 00:00:00 ALDMO [facility] [id number] 2020-08-11 00:00:00 ALDMO [facility] [id number] 2020-08-11 00:00:00 ALDMO [facility] [id number] 2020-08-11 00:00:00 ALDMO [facility] Computed tomography 2017-10-24 00:00:[address] [facility] kashif Patient angiography of brain Medical Augstin ter CT angiography of chest 2017-10-23 00:00:00 KHAI WAHL V C [facility] Computed tomography of 2017-10-23 00:00:00 KHAI WAHL V [facility] Patient brain without radiopaque Medical Center contrast [...] Clinicians Facility Department ID 2021-06-17 Outpatient 3 [id number] ENCKY MALDONADO [id number] [facility] 10:24:03 [id number] [facility] 2021-06-17 Outpatient 3 [id number] ENCKY REF [id number] [facility] 10:22:04 [id number] [facility] 2021-03-22 Emergency [facility] [id number] Univers 15:25:20 ity of [facility] 2021-03-22 Emergency [facility] [id number] Univers 10:56:41 ity of [facility] 2021-03-21 Emergency [facility] [id number] Univers 18:15:08 ity of [facility] 2021-03-21 Emergency [facility] [id number] Univers 17:18:22 ity of [facility] 2021-03-21 Emergency [facility] [id number] Univers 12:58:19 ity of [facility] 2021-03-21 Emergency [facility] [id number] Univers 04:06:22 ity of [facility] 2021-03-21 Emergency [facility] [id number] Univers 00:12:27 ity of [facility] 2021-03-20 Emergency [facility] [id number] Univers 00:55:44 ity of [facility] 2021-03-19 Emergency [facility] [id number] Univers 17:28:47 ity of [facility] 2021-03-19 Emergency [facility] [id number] Univers 03:16:03 ity of [facility] 2021-03-18 Emergency [facility] [id number] Univers 13:56:50 ity of [facility] 2020-08-23 Inpatient HCACL FERNANDO [id number] [facility] 17:41:00 84 [facility] 2020-04-04 Inpatient Marko, HCAMN HCAMN [id number] [facility] 14:40:00 Edward 33 [facility] 2019-10-15 Inpatient RADHA Shah, HCAPM ENDO [id number] [facility] 15:30:00 Finn 14762 [facility] 2022-04-19 2022-04-19 Orders Doctor JOSE 1.2.840.114 [id number] Univers 00:00:00 00:00:00 Only Unassigned, [place] [id number] [facility] [id number] Juan J as [id number] [facility] 009 Branch 2022-02-11 2022-02-11 Transition LATRICE Harding 1.2.840.114 [id number] Univers 00:00:00 00:00:00 of Care Josselyntoni DUQUE [id number] it y of [id number] [id number] [facility] 403 Branch 2022-02-09 2022-02-10 Outpatient U JAE MSSCOTT DARIUS [id number] Univers 19:53:00 13:45:00 MARTHA ity of [facility] 2022-02-09 2022-02-10 Hospital Ana Maria Meza [facility] 1.2.840.114 [id number] Univers 19:53:00 13:45:00 Encounter Martha Rowe [id number] ity of [id number] [id number] [facility] 081 Branch 2022-01-30 2022-01-30 Lab [facility] [id number] 00:00:00 00:00:00 Requisitio [facility] 2022-01-30 2022-01-30 Lab [facility] [id number] 00:00:00 00:00:00 Requisitio [facility] 2021-11-09 2021-11-09 Emergency X Troy KU [facility] ERT [id number] Univers 15:15:00 18:32:00 ity of [facility] 2021-11-09 2021-11-09 Emergency Troy Ku [facility] 1.2.840.114 [id number] Univers 15:15:00 18:32:00 Mckenzie PEREZ [id number] i ty of [place] 4.2.7.2.686 [facility] [id number] [place] [id number] [place] 2021-11-05 2021-11-05 Emergency X VERONICA [facility] ERT [id number] Univers 00:44:00 06:53:00 MIHAELA baugh [facility] 2021-11-05 2021-11-05 [facility] [id number] [id number] Univers 00:44:00 06:53:00 Mihaela PEREZ [id number] ity [facility] 4.2.7.2.686 [facility] [id number] [facility] 084 Branch 2021-11-04 2021-11-04 Transition Feliciano CLAUDETTETanya 1.2.840.114 [id number] Univers 00:00:00 00:00:00 of Jennifer DUQUE [id number] it y of [place] 4.2.7.2.686 [facility] [id number] [facility] 403 Branch 2021-11-02 2021-11-03 Outpatient X BRAYDON [facility] [id number] Univers 22:35:00 15:46:00 OC baugh [facility] 2021-11-02 2021-11-03 Emergency Curtis Xavier [facility] 1.2.840. 114 [id number] Univers 22:35:00 15:46:00 Oc Bryson [id number] ity of [place] 4.2.7.2.686 [facility] [id number] [facility] 081 Branch 2021-11-02 2021-11-03 Outpatient X BRAYDON [facility] DARIUS [id number] Univers 22:35:00 15:46:00 OC itvashti [facility] 2021-11-01 2021-11-01 Transition LATRICE Feliciano 1.2.840.114 [id number] Univers 00:00:00 00:00:00 of Jennifer DU[place] [id number] it y umu [place] 4.2.7.2.686 [facility] [id number] [facility] 403 Branch 2021-10-27 2021-10-29 Outpatient X DERRICK [facility] [id number] Univers 17:41:00 14:03:00 ANA MARIA vashti [facility] 2021-10-27 2021-10-29 Emergency Jameson Mejia [facility] 1.2.840. 114 [id number] Univers 17:41:00 14:03:00 Lizett Gerardo [id number] ity of [place] 4.2.7.2.686 [facility] [id number] [address] 2021-10-27 2021-10-29 Outpatient X DERRICK [facility] DARIUS [id number] Univers 17:41:00 14:03:00 ANA MARIA baugh [facility] 2021-10-21 2021-10-22 Emergency [facility] ERT [id number] Univers 20:24:00 04:18:00 JYOTI [facility] 2021-10-21 2021-10-22 Emergency [facility] [id number] [id number] Univers 20:24:00 04:18:00 Jyoti PEREZ [id number] i ty of [place] 4.2.7.2.686 [facility] [id number] [place] 406434 Branch 2021-10-20 2021-10-20 Transition LATRICE Aleman 1.2.840.114 [id number] Univers 00:00:00 00:00:00 of Jennifer DUQUE [id number] ity [place] [id number] [facility] 403 Branch 2021-10-15 2021-10-18 Outpatient X DERRICK [facility] DARIUS [id number] Univers 16:42:00 13:52:00 ANA MARIA baugh [facility] 2021-10-15 2021-10-18 Emergency Jameson Mejia [facility] 1.2.840. 114 [id number] Univers 16:42:00 13:52:00 Ana Maria Meza [id number] ity of [place].7.2.[place] [id number] [facility] 081 Branch 2021-07-23 2021-07-23 Transition LATRICE Farooq 1.2.840.114 [id number] Univers 00:00:00 00:00:00 of Care Marcellaprakash DU[place] [id number] i ty of [place] [id number] [facility] 403 [place] 2021-07-19 2021-07-22 [facility]patient [facility] DARIUS [id number] Univers 09:10:00 17:00:00 GEOFFREY baugh [facility] 2021-07-19 2021-07-22 [facility] Brandyn Dumont [facility] 1.2.840.1 14 [id number] Univers 09:10:00 17:00:00 Encounter Geoffrey Hill [facility] [id number] ity of [place] [id number] [facility] 109 Branch ([facility]) 2021-07-21 2021-07-21 Outpatient Wong_H VFP VF [id number] Village 06:58:00 06:58:00 [id number] Family Practic e 2021-07-13 2021-07-13 Transition LATRICE Aleman 1.2.840.114 [id number] Univers 00:00:00 00:00:00 of Care Rico Andrew [place] [id number] [place] [id number] [address] 2021-06-28 2021-07-12 Inpatient X ANGEL [facility] DARIUS [id number] Univers 10:43:00 18:25:00 AMBIKA [facility] 2021-06-28 2021-07-12 [facility] Jameson Mejia [facility] 1.2.840.1 [id number] Univers 10:43:00 18:25:00 Encounter Troy Ku [id number] ity of Ambika Fernandez [place] 4.2.7.2.686 [facility] [id number] [facility] 081 Branch 2021-02-15 2021-02-[address] [facility] [id number] Univers 15:00:00 15:00:00 ALECIA [facility] 2021-01-11 2021-01-[address] [facility] [id number] Univers 10:45:00 10:45:00 GINA baugh o anuj [facility] 2021-01-05 2021-01-05 Transition Latrice Aleman 1.2.840.114 [id number] Univers 00:00:00 00:00:00 of Care Rico Duque [id number] ity of [place] 4.2.7.2.686 [place] [id number] [facility] 403 Branch 2021-01-01 2021-01-04 [facility] Wayne Can [facility] 1.2.840.1 14 [id number] Univers 14:18:00 18:10:00 Encounter Lizett Gerardo [id number] ity of [place].2.[place] [id number] [facility] 081 Branch 2021-01-01 2021-01-01 Orders Doctor GARCIA 1.2.840.114 [id number] Univers 00:00:00 00:00:00 Only Unassigned, [place] [id number] ity [place] [facility] 4.2.7.2.686 Juan J as [id number] [facility] 009 Branch 2020-12-17 2020-12-17 Transition Latrice Harding 1.2.840.114 [id number] Univers 00:00:00 00:00:00 of Care Josselyn [place]que [id number] it y of [place].2.[place] [id number] [facility] 403 Branch 2020-12-14 2020-12-16 Emergency Jyoti Cedeno S [facility] 1.2.840.1 [id number] Univers 17:50:00 17:46:00 Ana Maria Meza [id number] ity of [place].2.[place] [id number] [facility] 081 Branch 2020-11-16 2020-11-16 Orders Doctor JOSE 1.2.840.114 [id number] Univers 00:00:00 00:00:00 Only Unassigned, [place] [id number] ity of [place] [facility] 4.2.7.2.686 Juan J [id number] [facility] 009 Branch 2020-10-30 2020-11-05 Inpatient EM Debi, [facility] [id number] [facility] 16:50:00 13:52:00 Fede 75179 [facility] 2020-10-31 2020-10-31 Outpatient ANNEL Carrera LABO [id number] [facility] 08:22:00 08:22:00 Fede 73 [facility] 2020-10-28 2020-10-28 Hospital Radiology [facility] 1.2.840.114 [id number] Univers 08:30:17 23:59:00 Encounter Sera [id number] ity of [place] [id number] [facility] 807 Branch 2020-10-28 2020-10-28 Hospital Radiology [facility] 1.2.840.114 [id number] 08:30:17 23:59:00 Encounter [place] [id number] [place] 4.2.7.2.686 [place] [id number] 2020-10-28 2020-10-28 Outpatient R RADIOLOGY [facility] [id number] Univers 00:00:00 00:00:00 ity of [facility] 2020-10-12 2020-10-12 [facility] 1.2.840.114 [id number] Univers 14:02:10 14:50:48 Visit Bryan Sera 350.1.13.10 i ty of [place] [phone] [place] dical [facility] [address] [facility] 2020-10-12 2020-10-12 Outpatient [facility] [id number] Univers 14:00:00 14:50:48 BRYAN ity [facility] 2020-10-12 2020-10-12 Outpatient R [facility] [id number] Univers 14:00:00 14:00:00 [facility] 2020-10-06 2020-10-06 Office Ivana [facility] 1.2.840.114 [id number] Univers 10:43:51 11:59:29 Visit Gina Perez 350.1.13.10 ity [facility] [place] [phone] Wa dical [address] 2020-10-06 2020-10-06 [facility] 1.2.840.114 [id number] 10:43:51 11:59:29 Visit Gina Perez 350.1.13.10 [place] 4.2.7.2.686 Professio [phone] [address] 2020-10-06 2020-10-[address] [facility] [id number] Univers 10:30:00 10:30:00 GINA baugh o f [facility] 2020-10-06 2020-10-06 Orders Doctor GARCIA 1.2.840.114 [id number] Univers 00:00:00 00:00:00 Only Unassigned, CAROLINA 350.1.13.10 ity of [place] [facility] 4.2.7.2.686 Juan J as [phone] [address] 2020-09-28 2020-09-28 Emergency [facility] 1.2.840.114 [id number] Univers 17:28:00 21:08:00 Elmerji Anuj Perez 350.1.13.10 ity of [place] 4.2.7.2.686 [facility] [phone] [facility] 084 Branch 2020-09-28 2020-09-28 Transition Latrice French 1.2.840.114 [id number] Univers 00:00:00 00:00:00 of Care Gilda Duque 350.1.13.10 it y of [place].7.2.[place] [phone] [facility] 403 [address] 2020-09-23 2020-09-26 [facility] Wayne Can [facility] 1.2.840.1 14 [id number] Univers 13:50:00 18:28:00 Encounter Ambika Fernandez 350.1.13.10 ity of [place] 4.2.7.2.686 [facility] [phone] [place] 406431 [place] 2020-09-23 2020-09-26 Inpatient [facility] [id number] Univers 13:50:00 18:28:00 AMBIKA baugh [facility] 2020-09-22 2020-09-22 Outpatient R IVANAVA [facility] [id number] Univers 09:45:00 09:45:00 GINA palacio [facility] 2020-09-10 2020-09-[address] [facility] [id number] Univers 16:15:00 16:15:00 BRYAN baugh [facility] 2020-09-09 2020-09-09 Transition Latrice Aleman 1.2.840.114 [id number] Univers 00:00:00 00:00:00 of Care Rico Duque 350.1.13.10 ity of [place] [phone] [address] 2020-09-08 2020-09-[address] [facility] [id number] Univers 08:30:00 08:30:00 GINA palacio [facility] 2020-09-02 2020-09-07 Hospital Jose Guy [facility] 1.2.840.114 [id number] Univers 16:46:00 18:45:00 Encounter Alis Garcia [facility] 350. 1.13.10 ity of [place] Geoffrey Jonn 4.2.7.2.686 [place] Kaylyn Calvin Mejia [phone] [address] ([facility]) 2020-08-26 2020-08-26 Office Tha Gunter [facility] 1.2.840.114 [id number] Univers 10:44:06 11:14:06 Visit [facility] 350.1.13.10 it y of [place] [phone] [address] Office Building 2020-08-26 2020-08-26 Outpatient THA POLK [facility] [id number] Univers 10:30:00 10:30:00 ity [facility] 2020-08-25 2020-08-25 Outpatient Tim HEATH [facility] [id number] Univers 10:00:00 10:00:00 GINA palacio [facility] 2020-08-24 2020-08-24 Outpatient Tim JAIME [facility] [id number] Univers 09:00:00 09:00:00 DEIDRE [facility] 2020-08-21 2020-08-21 [facility] 1.2.840.114 [id number] Univers 08:43:52 09:13:46 Visit Gina Perez 350.1.13.10 ity of [place] 4.2.7.2.686 [place] [phone] [place] [address] Branch Building 2020-08-21 2020-08-21 Outpatient Tim HEATH [facility] [id number] Univers 08:30:00 08:30:00 GINA palacio [facility] 2020-08-10 2020-08-14 Inpatient KACIE Montanez, ANNELCL INTE.02 [id number] [facility] 09:09:00 18:56:00 Johnie Lunsford [facility] 2020-08-11 2020-08-[address] [facility] [id number] Univers 09:15:00 09:15:00 GINA palacio [facility] 2020-08-07 2020-08-[address] [facility] [id number] Univers 10:00:00 10:00:00 GINA palacio [facility] 2020-07-27 2020-08-06 [facility] Jameson Mejia 1.2.840.1 14 [id number] Univers 12:13:00 17:15:00 Encounter Minnie Cardona 350.1.13.10 ity of [facility] 4.2.7.2.686 [place] Drew Noriega [phone] [facility] Johnie Skinner [address] [place] [address] 2020-07-27 2020-08-06 Inpatient JOHNIE SKINNER [facility] [id number] Univers 12:13:00 17:15:00 ity of [facility] 2020-07-24 2020-07-24 Outpatient R IVANAVA [facility] [id number] Univers 13:00:00 13:00:00 GINA workman [facility] 2020-07-21 2020-07-21 Transition Latrice Aleman 1.2.840.114 [id number] Univers 00:00:00 00:00:00 of Care Rico Duque 350.1.13.10 ity of [place] 4.2.7.2.686 Noe beckett [phone] [address] 2020-07-10 2020-07-20 [facility] Janeth Leal 1.2.84 0.114 [id number] Univers 19:24:00 21:51:00 Encounter Oc Bryson 350.1.13.10 ity of Janeth Leal [facility] 4.2.7.2.686 [place] Minnie Cardona [phone] Medical Lisa Marroquin [address] 2020-07-17 2020-07-[address] [facility] [id number] Univers 10:00:00 10:00:00 JOSE baugh [facility] 2020-07-10 2020-07-10 Outpatient R IVANA [facility] [id number] Univers 08:45:00 08:45:00 GINA workman f [facility] 2020-06-15 2020-06-15 Telephone [facility] 1.2.838.739 [id number] Univers 00:00:00 00:00:00 Jose Perez 350.1.13.10 i ty of [place] [phone] Wa dical nal [address] Building 2020-06-11 2020-06-11 Office [facility] 1.2.840.114 [id number] Univers 13:43:55 13:58:55 Visit Jose Eric 350.1.13.10 it y of [place] 4.2.[place].2.686 [place] - [phone] Med ical [facility] 188 [address] 2020-06-11 2020-06-11 Outpatient R JANKI [facility] [id number] Univers 13:30:00 13:30:00 JOSE baugh [facility] 2020-06-03 2020-06-03 Transition Latrice Aleman 1.2.840.114 [id number] Univers 00:00:00 00:00:00 of Care Rico Duque 350.1.13.10 ity of [place] [id number] [facility] 403 [address] 2020-05-29 2020-06-02 [facility] Jameson Mejia [facility] 1.2.840.1 14 [id number] Univers 09:12:00 16:02:00 Encounter Lizett Gerardo 350.1.13.10 ity of Martha [place] 4.2.7.2.686 [facility] [phone] [facility] 081 [address] 2020-05-29 2020-06-02 Inpatient X JAE [facility] [id number] Univers 09:12:00 16:02:00 MARTHA baugh [facility] 2020-05-29 2020-05-29 Outpatient R JANKI [facility] [id number] Univers 10:15:00 10:15:00 JOSE baugh [facility] 2020-04-23 2020-04-23 Office [facility] 1.2.840.114 [id number] Univers 13:48:18 14:03:18 Visit Jose [facility] 350.1.13.10 it y of [place] - [phone] [address] 2020-04-23 2020-04-[address] [facility] [id number] Univers 13:30:00 13:30:00 JOSE baugh [facility] 2020-04-23 2020-04-23 Orders Doctor JOSE 1.2.840.114 [id number] Univers 00:00:00 00:00:00 Only Unassigned, [place]OLINA 350.1.13.10 ity of [place] [facility] 4.2.7.2.686 Juan J as [phone] [facility] 009 [place] 2020-04-09 2020-04-09 Office [facility] 1.2.840.114 [id number] Univers 13:58:45 14:13:45 Visit Jose [facility] 350.1.13.10 it y of [place] 4.2.7.2.686 [facility] - [phone] [address] 2020-04-09 2020-04-[address] [facility] [id number] Univers 14:00:00 14:00:00 JOSE baugh [facility] 2020-03-27 2020-03-27 Transition Latrice Aleman 1.2.840.114 [id number] Univers 00:00:00 00:00:00 of Care Rico Duque 350.1.13.10 ity of [place].2.7.2.[place] [phone] [facility] 403 [address] 2020-03-15 2020-03-26 Hospital Jameson Mejia 1.2.840.1 14 [id number] Univers 23:48:00 18:02:00 Encounter Kandis Hough 350.1.13.10 ity of Janki [facility] 4.2.7.2.68 6 [place] [id number] [facility] 098 Branch 2020-03-18 2020-03-18 Anesthesia Caio Najera Nancy 1. 2.840.114 [id number] Univers 13:52:00 16:42:00 Stephanie Franks 350.1.13.10 ity of [facility] 4.2.7.2.686 [place] J as [phone] [facility] 103 [address] 2020-02-06 2020-02-06 Transition Claudette Alemantanya 1.2.840.114 [id number] Univers 00:00:00 00:00:00 of Care Rico Zelayay 350.1.13.10 ity of [place]2.[place].2.[place] [id number] [facility] 403 [address] 2020-02-03 2020-02-05 Hospital Óscar Hermosillo [facility] 1.2.8 40.114 [id number] Univers 16:55:00 20:40:00 Encounter Martha Rowe 350.1.13.10 ity of [place] 4.2.[place].2.[place] [phone] [facility] 081 Branch 2020-01-17 2020-01-[address] [facility] [id number] Univers 13:30:00 13:30:00 SENDIL ity of [facility] 2019-12-02 2019-12-02 Outpatient R [facility] [id number] Univers 15:00:00 15:00:00 ity of [facility] 2019-11-16 2019-11-21 [facility] Dhirajfrances [place] [facility] 1.2.840 .114 [id number] Univers 16:35:23 14:12:00 Encounter Heather Hermosillo 350.1.13.1 0 ity of [place] 4.2.[place].2.[place] [id number] [place] 4064[address] Branch 2019-09-17 2019-09-18 [facility] 1.2.437.717 [id number] Univers 20:30:04 00:41:00 Valery Perez 350.1.13.10 ity of [place] 4.2.[place].2.[place] [phone] [facility] 084 [place] 2019-09-17 2019-09-18 Emergency X ALFIE [facility] ERT [id number] Univers 20:30:04 00:41:00 WAKILI ity [facility] 2019-09-05 2019-09-[address] [facility] [id number] Univers 14:00:00 14:00:00 SENDIL ity [facility] 2019-09-05 2019-09-05 Telemedici [facility] 1.2.840.114 [id number] Univers 08:17:17 08:47:17 ne Visit Sendil Hannah Perez 350.1.13.10 ity of [place] [phone] Wa dicnc nal [address] [place] [address] 2019-09-05 2019-09-05 Telephone [facility] 1.2.168.432 [id number] Univers 00:00:00 00:00:00 Sendil Hannah Perez 350.1.13.10 ity of [place].2.[place].2.[place] [phone] Wa dical nal [address] [facility] 2019-09-03 2019-09-[address] [facility] [id number] Univers 10:30:00 10:30:00 SENDIL ity [facility] 2019-08-20 2019-08-20 Telephone [facility] 1.2.918.929 [id number] Univers 00:00:00 00:00:00 Nika SHAW 350.1.13.10 ity of [place].2.[place] [facility] [phone] Wa dical 390 [place] 2019-08-19 2019-08-19 Refill Nancy Lee 1.2.840.114 [id number] Univers 00:00:00 00:00:00 Lola Figueroa 350.1.13.10 it y of Hospital 4.2.7.2.686 [place] J as [id number] [facility] 090 [place] 2019-08-16 2019-08-16 Refill Nancy Lee 1.2.840.114 [id number] Univers 00:00:00 00:00:00 Lola Carolina 350.1.13.10 it y of Hospital 4.2.7.2.686 [place] J as [phone] [facility] 090 [address] 2019-08-15 2019-08-15 Emergency [facility] 1.2.840.114 [id number] Univers 11:58:21 15:28:00 Demarcus Perez 350.1.13.10 i ty of [place].2.[place] [id number] [facility] 084 Branch 2019-08-15 2019-08-15 Emergency [facility] ERT [id number] Univers 11:58:21 15:28:00 DEMARCUS ity [facility] 2019-08-15 2019-08-15 Case JOSE Castillo 1.2.840.114 [id number] Univers 00:00:00 00:00:00 Management Ninfa FIGUEROA 350.1.13.10 ity [facility] 4.2.7.2.686 [place] J as [phone] [facility] 008 Branch 2019-08-15 2019-08-15 Telephone Anna [facility] 1.2.252.969 [id number] Univers 00:00:00 00:00:00 Ninfa Perez 350.1.13.10 ity of [place] 4.2.[place].2.[place] [facility] [phone] [facility] [address] [facility] 2019-08-12 2019-08-12 Transition Latrice Ramirez 1.2.840.114 [id number] Univers 00:00:00 00:00:00 of Care Joan Duque 350.1.13.10 ity of [place] 4.2.[place].2.[place] [phone] [facility] 403 [address] 2019-08-06 2019-08-09 Emergency Wayne Can [facility] 1.2.840. 114 [id number] Univers 14:06:47 15:19:00 Lizett Gerardo 350.1.13.10 ity of [place] 4.2.[place].2.[place] [id number] [facility] 081 Branch 2019-08-06 2019-08-09 Outpatient X HUMAIRA [facility] [id number] Univers 14:06:47 15:19:00 LIZETT ity of [facility] 2019-08-06 2019-08-06 Outpatient R TRAVIS, [facility] [id number] Univers 13:30:00 13:30:00 RICHMOND ity o f [facility] 2019-08-06 2019-08-06 Outpatient R TRAVIS, [facility] [id number] Univers 11:00:00 11:00:00 RICHMOND singhy o f [facility] 2019-08-06 2019-08-06 Outpatient R TRAVIS, [facility] [id number] Univers 11:00:00 11:00:00 [facility] amauri o f [facility] 2019-08-06 2019-08-06 Orders Doctor JOSE 1.2.840.114 [id number] Univers 00:00:00 00:00:00 Only Unassigned, [place] 350.1.13.10 ity of [place] [facility] 4.2.7.2.686 Juan J as [phone] [facility] 009 Branch 2019-07-19 2019-07-19 Transition Latrice French 1.2.840.114 [id number] Univers 00:00:00 00:00:00 of Care Gilda Duque 350.1.13.10 it y of [place] 4[place].2.[place] [id number] [facility] 403 [address] 2019-07-17 2019-07-18 Emergency Antonetteodalysarnie Danakelli S Nancy 1.2.840 .114 [id number] Univers 21:36:10 21:05:00 Abu-Josy Tareq [place] 350.1.13.1 0 ity of Hospital 4.2.7.2.686 [place] as [id number] [facility] 090 Branch 2019-07-17 2019-07-18 Outpatient X ABU-JOSY, TAREQ [facility] [id number] Univers 21:36:10 21:05:00 ABU-JOSY, TAREQ ity of [facility] 2019-07-03 2019-07-03 Transition Latrice French 1.2.840.114 [id number] Univers 00:00:00 00:00:00 of Care Gilda Duque 350.1.13.10 it y of [place].2.[place] [id number] [address] 2019-07-01 2019-07-01 Transition Latrice French 1.2.840.114 [id number] Univers 00:00:00 00:00:00 of Care Gilda Duque 350.1.13.10 it y of [place].2.[place] [id number] [facility] 403 [place] 2019-06-27 2019-06-27 Transition Latrice French 1.2.840.114 [id number] Univers 00:00:00 00:00:00 of Care Gilda Duque 350.1.13.10 it y of [place] 4.2.[place].2.[place] [id number] [facility] 403 [place] 2019-06-24 2019-06-26 [facility] [id number] Univers 14:51:01 18:37:00 MICHAEL ity of [facility] 2019-06-24 2019-06-26 Hospital Janeth Leal 1.2.84 0.114 [id number] Univers 14:51:01 18:37:00 Encounter Michael Shirley 350.1.1 3.10 ity of [facility] 4.2.7.2.686 [place] J as [id number] [facility] 090 [address] 2019-02-06 2019-02-06 Telephone JOSE Bhatt 1.2.840.114 [id number] Univers 00:00:00 00:00:00 Cortney FIGUEROA 350.1.13.10 i ty of [facility] 4.2.7.2.686 [place] J as [id number] [facility] 008 Branch 2019-02-05 2019-02-05 Emergency [facility] 1.2.616.068 [id number] Univers 17:30:29 21:52:00 Jyoti Perez 350.1.13.10 i ty of [place] 4.2.7.2.[place] [id number] [place] 406434 Branch 2019-01-30 2019-01-30 Transition EmyLatrice martínez 1.2.840.114 [id number] Univers 00:00:00 00:00:00 of Care Rhonda Duque 350.1.13.10 it y of [place] 4.2.[place].2.[place] [id number] [facility] 403 [address] 2019-01-24 2019-01-29 [facility] Wayne Can 1.2.840.1 14 [id number] Univers 16:01:37 14:55:00 Encounter Dennis Finley 350.1.13.10 ity [facility] 4.2.7.2.686 [place] J as [id number] [place] 406439 Branch 2019-01-22 2019-01-22 Transition Latrice Quevedo 1.2.840.114 [id number] Univers 00:00:00 00:00:00 of Care Rhonda Duque 350.1.13.10 it y of [place] 4.2.[place].2.[place] [id number] [facility] 403 [address] 2019-01-16 2019-01-19 [facility] Carlos Allen 1.2.840.11 4 [id number] Univers 23:52:03 14:36:00 Encounter Martha Rowe 350.1.13.10 ity of [place], Dennis ramsayal 4.2.7.2.686 [place] [id number] [place] [address] Branch 2017-10-23 2017-10-27 Discharged 1 [facility] [id number] 17:29:00 16:54:00 Inpatient ALEXIS 90 Luke s [facility] 2017-04-03 2017-04-04 [id number] 23:17:00 03:53:00 Emergency LAIRD 56 Luke s Room [facility] 2017-03-05 2017-03-09 Discharged ER [facility] [id number] 06:54:00 10:58:00 Inpatient NICHELLE 44 Luke s (obs) Patient [facility] 2017-01-04 2017-01-05 Discharged [facility] [id number] 10:33:00 18:56:00 Inpatient 61 Favio s (obs) [facility] Orders Doctor JOSE 1.2.840.114 [id number] Univers 00:00:00 00:00:00 Only Unassigned, [place] 350.1.13.10 ity of [place] [facility] 4.2.7.2.686 Juan J as [phone] Medi uriel 009 Branch Results Test Description Test Time Test Comments Results Result Comments Source Transthoracic echo (TTE) 2022-02-10 17:43:07 Test Item Value Reference Range Interpretation Comme nts Height (test code = 2556547881) in Weight (test code = 1173915706) lbs Systolic BP (test code = 0912661678) mmHg Diastolic BP (test code = 2314873118) mmHg Heart Rate (test code = 3284631144) bpm BSA (test code = 3601912403) 1.86 m2 Ao root diam (test code = 0905283063) 3.10 cm Aortic root (test code = 8357481883) 3.1 cm Ao root annulus (test code = 3.1 cm 9079914206) LVOT diameter (test code = 1.83 cm 4177616421) LVOT area (test code = 5437862431) 2.60 cm2 LVIDD (test code = 0766914272) 4.80 cm Left Ventricular End Diastolic Volume 107.5 mL by Teichholz Method (test code = 9781379) IVS (test code = 3746955549) 1.35 cm Interventricular Septum Diastolic 1.35 cm Thickness by 2D (test code = 4509175) LVPWD (test code = 7155571184) 1.35 cm PW (test code = 5012535202) 1.35 cm 0.6-1.1 EF(Teich) (test code = 8494761337) 30.10 % LVIDS (test code = 8868731711) 4.10 cm Left Ventricular End Systolic Volume 75.1 mL by Teichholz Method (test code = 5407862) FS (test code = 1658416406) 14 % EF - 2D (test code = 46466077) 30.10 % LA size (test code = 1032790438) 4.1 cm TR Peak Haile (test code = 7658083996) 232.4 cm/s Triscuspid Valve Regurgitation Peak mmHg Gradient (test code = 4339135097) LAV(MOD-sp4) (test code = 4180614747) 103.10 mL E wave decelartion time (test code = 0.15 s 1935928790) MV stenosis pressure 1/2 time (test 44.6 ms code = 4143368435) MV Peak E Haile (test code = 110.2 cm/s 4168752061) MV Peak A Haile (test code = 28.7 cm/s 3179889243) E/A ratio (test code = 5386879653) ratio MR max PG (test code = 6508362745) 78.70 mm[Hg] MR max haile (test code = 5509673334) 443.40 cm/s Mr max haile (test code = 5148019381) 443.4 m/s MV Prop V (test code = 4086798662) 45.00 cm/s MV E/e' septal (test code = 9.2 cm/s 5259221008) Tapse (test code = 0901238494) 1.53 cm LVOT stroke volume (test code = 41.70 cm3 9128947285) LVOT peak haile (test code = 87.2 cm/s 6024741002) LVOT mn grad (test code = 2085608751) mmHg AV LVOT peak gradient (test code = mmHg 1793385531) LVOT peak VTI (test code = 15.8 cm 9374362313) LV V1 mean (test code = 4310049119) 51.30 cm/s Aortic valve mean velocity (test code 78.3 cm/s = 5844418282) Ao peak haile (test code = 0941284089) 111.8 cm/s Ao VTI (test code = 7778805458) 21.5 cm AV area by cont VTI (test code = 1.9 cm2 6383918943) AV area peak haile (test code = 2.1 cm2 9393047118) Ao max PG (test code = 4074171087) 5.00 mm[Hg] AV peak gradient (test code = mmHg 4792381802) AV valve area (test code = 1.94 cm2 2356639180) AV mean gradient (test code = mmHg 0765610299) Radiology Study observation (narrative) (test code = 36233-4) DIANE (test code = DIANE) Table formatting [...] lateral and apex.All other segments are normal. [facility] T0961-[facility]-05 12:01:08 Test Item Value Reference Interpretation Comments Range TROPONIN I (test 0.021 ng/mL See_Comment [Automated code = 3420484230) message] The system which generated this result [...] biotin. Lab Interpretation Normal (test code = 14861-1) [facility]2022-09-22 11:50:23 Test Item Value Reference Range Interpretation Comments MAGNESIUM (test code = 8648161614) 1.7 mg/dL 1.7-2.4 Lab Interpretation (test code = Normal 90607-9) [facility]OLIC PANEL (97786)2022-02-10 11:50:22 Test Item Value Reference Range Interpretation Comments NA (test code = 138 mmol/L 135-145 3261075434) K (test code = 3.9 mmol/L 3.5-5 8107299917) CL (test code = 108 mmol/L 98-108 9477986598) CO2 TOTAL (test code = 24 mmol/L 23-31 7966660655) AGAP (test code = 2-16 1367548811) BUN (test code = 19 mg/dL 7-23 2341741185) GLUCOSE (test code = 117 mg/dL 70-110 H 7890332983) CREATININE (test code = 0.91 mg/dL 0.6-1.25 4448536815) TOTAL BILI (test code = 1.0 mg/dL 0.1-1.3 9153137191) CALCIUM (test code = 8.5 mg/dL 8.6-10.6 L 8316216701) T PROTEIN (test code = 6.4 g/dL 6.3-8.2 8116796601) ALBUMIN (test code = 3.4 g/dL 3.5-5 L 8749924289) ALK PHOS (test code = 177 U/L 34-122 H 5325777107) ALTv (test code = 24 U/L 5-50 1742-6) AST(SGOT) (test code = 38 U/L 13-40 3537710370) eGFR (test code = mL/min/1.73m2 3650076390) DIANE (test code = DIANE) Association of [...] tests). Lab Interpretation Abnormal (test code = 08781-1) [facility] Test Item Value Reference Range Interpretation Comments PHOSPHORUS (test code = 7124473835) 5.1 mg/dL 2.5-5 H Lab Interpretation (test code = Abnormal 72116-3) [facility] WITH XONF8424-13-98 11:19:02 Test Item Value Reference Range Interpretation [...] RDW-SD (test code = 48.0 fL 38.5-51.6 62750-0) RDW-CV (test code = 14.2 % 12.1-15.4 788-0) PLT (test code = See_Comment [Automated 777-3) message] The sy stem which generated this result transmitted reference range : 150 - 328 10*3/ ?L. The reference r batsheva was not used to interpret this result as normal/abnormal . MPV (test code = 10.2 fL 9.8-13 94390-7) NRBC/100 WBC (test See_Comment [Automat ed code = 5170968523) message] The system which generated this result transmitted reference range : 0.0 - 10.0 /100 WBCs. The refer ence range was not u sed to interpret th is result as normal/abnormal . NRBC x10^3 (test code See_Comment [Auto mated = 2985398109) message] The s ystem which generated this result transmitted reference range : 10*3/?L. The reference range was not used to interpret this result as normal/abnormal . GRAN MAT (NEUT) % 68.5 % (test code = 770-8) IMM GRAN % (test code 0.40 % = 0592394851) LYMPH % (test code = 19.0 % 736-9) MONO % (test code = 8.3 % 5905-5) EOS % (test code = 3.4 % 713-8) BASO % (test code = 0.4 % 706-2) GRAN MAT x10^3(ANC) 3.65 10*3/uL 1.99-6.95 (test code = 8064978772) IMM GRAN x10^3 (test 0-0.06 code = 5991643760) LYMPH x10^3 (test code 1.01 10*3/uL 1.09-3.23 L = 731-0) MONO x10^3 (test code 0.44 10*3/uL 0.36-1.02 = 742-7) EOS x10^3 (test code = 0.18 10*3/uL 0.06-0.53 711-2) BASO x10^3 (test code 0.01-0.09 = 704-7) Lab Interpretation Abnormal (test code = 81977-4) [facility] 23:33:12 Test Item Value Reference Range Interpretation Comments BNP (test code = 97989-0) 443 pg/mL 0-100 H DIANE (test code = DIANE) Attorney At Law ID - ADRY Lab Interpretation (test Abnormal code = 55428-8) [facility] 23:33:12 Test Item Value Reference Range Interpretation Comments BNP (test code = 47151-9) 443 pg/mL 0-100 H DIANE (test code = DIANE) Attorney At Law ID - ADRY Lab Interpretation (test Abnormal code = 01181-7) [facility]-30 23:33:12 Test Item Value Reference Range Interpretation Comments BNP (test code = 79229-9) 443 pg/mL 0-100 H DIANE (test code = DIANE) Attorney At Law ID - ADRY Lab Interpretation (test Abnormal code = 76833-3) [facility]-30 23:33:12 Test Item Value Reference Range Interpretation Comments BNP (test code = 77475-3) 443 pg/mL 0-100 H DIANE (test code = DIANE) Attorney At Law ID - ADRY Lab Interpretation (test Abnormal code = 83478-9) [facility]-30 23:33:12 Test Item Value Reference Range Interpretation Comments BNP (test code = 90266-6) 443 pg/mL 0-100 H DIANE (test code = DIANE) Attorney At Law ID - ADRY Lab Interpretation (test Abnormal code = 07334-1) [facility]-30 23:33:12 Test Item Value Reference Range Interpretation Comments BNP (test code = 31600-0) 443 pg/mL 0-100 H DIANE (test code = DIANE) Attorney At Law ID - ADRY Lab Interpretation (test Abnormal code = 79368-9) [facility]22-01-30 23:33:12 Test Item Value Reference Range Interpretation Comments BNP (test code = 73379-3) 443 pg/mL 0-100 H DIANE (test code = DIANE) Attorney At Law ID - ADRY Lab Interpretation (test Abnormal code = 51850-0) [facility]-01-30 23:33:12 Test Item Value Reference Range Interpretation Comments BNP (test code = 06361-4) 443 pg/mL 0-100 H DIANE (test code = DIANE) Attorney At Law ID - ADRY Lab Interpretation (test Abnormal code = 84086-9) [facility]-01-30 23:33:12 Test Item Value Reference Range Interpretation Comments BNP (test code = 74064-2) 443 pg/mL 0-100 H DIANE (test code = DIANE) Attorney At Law ID - ADRY Lab Interpretation (test Abnormal code = 26972-9) [facility]22-01-30 23:33:12 Test Item Value Reference Range Interpretation Comments BNP (test code = 40169-4) 443 pg/mL 0-100 H DIANE (test code = DIANE) Attorney At Law ID - ADRY Lab Interpretation (test Abnormal code = 19135-9) [facility]22-01-30 23:33:12 Test Item Value Reference Range Interpretation Comments BNP (test code = 28572-1) 443 pg/mL 0-100 H DIANE (test code = DIANE) Attorney At Law ID - ADRY Lab Interpretation (test Abnormal code = 26465-8) [facility]-01-30 23:33:12 Test Item Value Reference Range Interpretation Comments BNP (test code = 45984-3) 443 pg/mL 0-100 H DIANE (test code = DIANE) Attorney At Law ID - ADRY Lab Interpretation (test Abnormal code = 97155-8) [facility]22-01-30 23:33:12 Test Item Value Reference Range Interpretation Comments BNP (test code = 23683-4) 443 pg/mL 0-100 H DIANE (test code = DIANE) Attorney At Law ID - ADRY Lab Interpretation (test Abnormal code = 52322-8) [facility]22-01-30 23:33:12 Test Item Value Reference Range Interpretation Comments BNP (test code = 39878-7) 443 pg/mL 0-100 H DIANE (test code = DIANE) Attorney At Law ID - ADRY Lab Interpretation (test Abnormal code = 85371-6) [facility]2022-01-30 23:33:12 Test Item Value Reference Range Interpretation Comments BNP (test code = 28382-2) 443 pg/mL 0-100 H DIANE (test code = DIANE) Attorney At Law ID - ADRY Lab Interpretation (test Abnormal code = 82443-2) [facility] (BNP)2022-01-30 23:33:12 Test Item Value Reference Range Interpretation Comments B-TYPE NATRIURETIC PEPTIDE (BEAKER) 443 pg/mL 0-100 H (test code = 700) [facility] Law [facility] [id number] 20:57:59 Test Item Value Reference Interpretation Comments Range TROPONIN I (test 0.017 ng/mL See_Comment [Automated code = 7268312772) message] The system which generated this result [...] biotin. Lab Interpretation Normal (test code = 40052-0) [facility] O[facility]-[id number] 20:54:59 Test Item Value Reference Range Interpretation Comments NT-proBNP (test code 6490 pg/mL See_Comment H [Autom ated = 6205486605) message] The system which generated this result transmitted reference range : <=125. The reference range was not used to interpret this result as normal/abnormal . DIANE (test code = DIANE) Biotin has been reported to cause a negative bias, interpret results relative to patient's use of biotin. Lab Interpretation Abnormal (test code = 18511-2) [facility]2022-06-21 20:46:35 Test Item Value Reference Range Interpretation Comments MAGNESIUM (test code = 2667524443) 1.5 mg/dL 1.7-2.4 L Lab Interpretation (test code = Abnormal 90413-0) [facility] CenterCOMP. METABOLIC PANEL (32610)2021-11-09 20:46:34 Test Item Value Reference Range Interpretation Comments NA (test code = 140 mmol/L 135-145 8884508556) K (test code = 3.9 mmol/L 3.5-5.0 1355199334) CL (test code = 111 mmol/L 98-108 H 5347595470) CO2 TOTAL (test code = 16 mmol/L 23-31 L 2214780667) AGAP (test code = 2-16 7499370138) BUN (test code = 14 mg/dL 7-23 2115596694) GLUCOSE (test code = 189 mg/dL 70-110 H 1181529552) CREATININE (test code = 0.66 mg/dL 0.60-1.25 2186182362) TOTAL BILI (test code = 0.8 mg/dL 0.1-1.1 0581523041) CALCIUM (test code = 8.3 mg/dL 8.6-10.6 L 4824405576) T PROTEIN (test code = 6.5 g/dL 6.3-8.2 9536675740) ALBUMIN (test code = 3.3 g/dL 3.5-5.0 L 6899336703) ALK PHOS (test code = 136 U/L 34-122 H 4549870410) ALTv (test code = 18 U/L 5-50 1742-6) AST(SGOT) (test code = 26 U/L 13-40 5958267180) eGFR (test code = mL/min/1.73m2 7972002238) DIANE (test code = DIANE) Association of [...] tests). Lab Interpretation Abnormal (test code = 20905-6) [facility] WITH [id number] 20:33:30 Test Item Value Reference Range Interpretation [...] RDW-SD (test code = 45.4 fL 38.5-51.6 27455-9) RDW-CV (test code = 14.2 % 12.1-15.4 788-0) PLT (test code = See_Comment [Automated 777-3) message] The sy stem which generated this result transmitted reference range : 150 - 328 10*3/ ?L. The reference r batsheva was not used to interpret this result as normal/abnormal . MPV (test code = 9.8 fL 9.8-13.0 57395-2) NRBC/100 WBC (test See_Comment [Automat ed code = 2543194379) message] The system which generated this result transmitted reference range : 0.0 - 10.0 /100 WBCs. The refer ence range was not u sed to interpret th is result as normal/abnormal . NRBC x10^3 (test code <0.01 See_Comment [Auto mated = 0924427397) message] The s ystem which generated this result transmitted reference range : 10*3/?L. The reference range was not used to interpret this result as normal/abnormal . GRAN MAT (NEUT) % 62.3 % (test code = 770-8) IMM GRAN % (test code 0.80 % = 7540901630) LYMPH % (test code = 25.1 % 736-9) MONO % (test code = 6.7 % 5905-5) EOS % (test code = 4.7 % 713-8) BASO % (test code = 0.4 % 706-2) GRAN MAT x10^3(ANC) 4.76 10*3/uL 1.99-6.95 (test code = 0017453532) IMM GRAN x10^3 (test 0.06 10*3/uL 0.00-0.06 code = 6854836920) LYMPH x10^3 (test code 1.92 10*3/uL 1.09-3.23 = 731-0) MONO x10^3 (test code 0.51 10*3/uL 0.36-1.02 = 742-7) EOS x10^3 (test code = 0.36 10*3/uL 0.06-0.53 711-2) BASO x10^3 (test code 0.03 10*3/uL 0.01-0.09 = 704-7) Lab Interpretation Abnormal (test code = 46711-5) [facility] (AUTOMATED)2021-11-09 20:27:39 Test Item Value Reference Range Interpretation Comments POCT GLU (test code = 6934923849) 190 mg/dL 70-110 H Lab Interpretation (test code = Abnormal 22288-3) [facility]ED[facility] [id number] 11:52:00 Test Item Value Reference Range Interpretation Comments GLUCOSE BEDSIDE TESTING (test code = 92 mg/dL 70-110 N GLUBED) GLUCOSE BEDSIDE [id number] 08:05:00 Test Item Value Reference Range Interpretation Comments GLUCOSE BEDSIDE TESTING (test code = 62 mg/dL 70-110 L GLUBED) GLUCOSE BEDSIDE [id number] 20:40:00 Test Item Value Reference Range Interpretation Comments GLUCOSE BEDSIDE TESTING (test code 105 mg/dL 70-110 N = GLUBED) GLUCOSE BEDSIDE [id number] 17:02:00 Test Item Value Reference Range Interpretation Comments GLUCOSE BEDSIDE TESTING (test code 128 mg/dL 70-110 H = GLUBED) GLUCOSE BEDSIDE [id number] 16:37:00 Test Item Value Reference Range Interpretation Comments GLUCOSE BEDSIDE TESTING (test code 105 mg/dL 70-110 N = GLUBED) GLUCOSE BEDSIDE [id number] 08:17:00 Test Item Value Reference Range Interpretation Comments GLUCOSE BEDSIDE TESTING (test code = 88 mg/dL 70-110 N GLUBED) GLUCOSE BEDSIDE [id number] 19:45:00 Test Item Value Reference Range Interpretation Comments GLUCOSE BEDSIDE TESTING (test code 115 mg/dL 70-110 H = GLUBED) GLUCOSE BEDSIDE [id number] 18:13:00 Test Item Value Reference Range Interpretation Comments GLUCOSE BEDSIDE TESTING (test code = 74 mg/dL 70-110 N GLUBED) GLUCOSE BEDSIDE [id number] 17:29:00 Test Item Value Reference Range Interpretation Comments GLUCOSE BEDSIDE TESTING (test code = 44 mg/dL 70-110 LL GLUBED) GLUCOSE BEDSIDE [id number] 12:26:00 Test Item Value Reference Range Interpretation Comments GLUCOSE BEDSIDE TESTING (test code = 96 mg/dL 70-110 N GLUBED) GLUCOSE BEDSIDE [id number] 08:21:00 Test Item Value Reference Range Interpretation Comments GLUCOSE BEDSIDE TESTING (test code = 77 mg/dL 70-110 N GLUBED) GLUCOSE BEDSIDE [id number] 20:12:00 Test Item Value Reference Range Interpretation Comments GLUCOSE BEDSIDE TESTING (test code = 91 mg/dL 70-110 N GLUBED) GLUCOSE BEDSIDE [id number] 16:42:00 Test Item Value Reference Range Interpretation Comments GLUCOSE BEDSIDE TESTING (test code 106 mg/dL 70-110 N = GLUBED) GLUCOSE BEDSIDE [id number] 11:49:00 Test Item Value Reference Range Interpretation Comments GLUCOSE BEDSIDE TESTING (test code = 89 mg/dL 70-110 N GLUBED) GLUCOSE BEDSIDE [id number] 08:22:00 Test Item Value Reference Range Interpretation Comments GLUCOSE BEDSIDE TESTING (test code = 68 mg/dL 70-110 L GLUBED) GLUCOSE BEDSIDE [id number] 20:05:00 Test Item Value Reference Range Interpretation Comments GLUCOSE BEDSIDE TESTING (test code 137 mg/dL 70-110 H = GLUBED) GLUCOSE BEDSIDE [id number] 16:42:00 Test Item Value Reference Range Interpretation Comments GLUCOSE BEDSIDE TESTING (test code = 98 mg/dL 70-110 N GLUBED) GLUCOSE BEDSIDE [id number] 11:13:00 Test Item Value Reference Range Interpretation Comments GLUCOSE BEDSIDE TESTING (test code 118 mg/dL 70-110 H = GLUBED) GLUCOSE BEDSIDE [id number] 07:37:00 Test Item Value Reference Range Interpretation Comments GLUCOSE BEDSIDE TESTING (test code 140 mg/dL 70-110 H = GLUBED) COMPREHENSIVE METABOLIC [id number] 06:34:00 Test Item Value Reference Range Interpretation [...] TOTAL (test code = ALKP) CBC W/AUTO [id number] 06:25:00 Test Item Value Reference Range Interpretation [...] DIFF/SCN CRITERIA = MDIFF) - CT ABDOMEN W/[id number] 03:09:00 [facility] 1960 Sex: M Name: FAITH VANCE [facility] : 1960 Age/S: 60 / M [address] Unit #: [id number] Loc: [place] [address] Phys: Fede Carrera Acct: [id number] Dis Date: Status: ADM IN PHONE #: [phone] Exam Date: 10/31/20201919 FAX #: Reason: NAUSEA, VOMITING, DIARRHEA EXAMS: CPT: [id number] CT ABDOMEN W/CONTRAST 38297 EXAM: - CT ABDOMEN W/CONTRAST LOCATION: H61 [...] Center : 1960 Age/S: 60 / M [address] Unit #: [id number] Loc: [place] [address] Phys: Fede Romero DO Acct: [id number] Dis Date: Status: ADM IN PHONE #: [phone] Exam Date: 10/31/20201919 FAX #: Reason: NAUSEA, VOMITING, DIARRHEA EXAMS: CPT: [id number] CT ABDOMEN W/CONTRAST 10247 <Continued> small bowel wall thickening. The appendix [...] (308) t.KATHRYNR.TH15 Orig Print D/T: S: 11/01/2020 (7292) PAGE 2 Signed ReportGLUCOSE BEDSIDE [id number] 21:34:00 Test Item Value Reference Range Interpretation Comments GLUCOSE BEDSIDE TESTING (test code 161 mg/dL 70-110 H = GLUBED) GLUCOSE BEDSIDE [id number] 17:32:00 Test Item Value Reference Range Interpretation Comments GLUCOSE BEDSIDE TESTING (test code 136 mg/dL 70-110 H = GLUBED) - XR ABDOMEN 1 [id number] 12:44:00 [facility] 1960 Sex: M Name: FAITH VANCE [facility] : 1960 Age/S: 60 / M [address] Unit #: [id number] Loc: [place] [address] Phys: Fede Carrera DO Acct: [id number] Dis Date: Status: ADM IN PHONE #: [phone] Exam Date: 10/31/2020 1227 FAX #: Reason: Abdominal pain in the lower qudarants EXAMS: C PT: [id number] XR ABDOMEN 1 V 00960 Fluoro Time: DAP (Gy m2): Air Kerma [...] few small bowel loops. Overall nonspecific appearance. [id number] Reported and signed by: Ananth Schmidt M.D. CC: Nika Martin MD; Fede Carrera DO PAGE 1 Signed Report Name: FAITH VANCE [facility] : 1960 Age/S: 60 / M [address] Unit #: [id number] Loc: [place] [address] Phys: Fede Carrera DO Acct: [id number] Dis Date: Status: ADM IN PHONE #: [phone] Exam Date: 10/31/2020 1227 FAX #: Reason: Abdominal pain in thelower qudarants EXAMS: CPT: [id number] XR ABDOMEN 1 V 32533 Fluoro Time: DAP (Gy m2): Air Kerma (mGy): <Continued> Technologist: RT Rohan(R) Trnscb Date/Time: 10/31/2020 (1244) tLIOV Orig Print D/T: S: 10/31/2020 (3785) PAGE 2 Signed Report GLUCOSE BEDSIDE [id number] 11:58:00 Test Item Value Reference Range Interpretation Comments GLUCOSE BEDSIDE TESTING (test code 105 mg/dL 70-110 N = GLUBED) GLUCOSE BEDSIDE [id number] 08:01:00 Test Item Value Reference Range Interpretation Comments GLUCOSE BEDSIDE TESTING (test code 106 mg/dL 70-110 N = GLUBED) [id number] 22:46:00 Test Item Value Reference Range Interpretation [...] yby method. Completed by Nursing: NOGLUCOSE BEDSIDE [id number] 21:55:00 Test Item Value Reference Range Interpretation Comments GLUCOSE BEDSIDE TESTING (test code 119 mg/dL 70-110 H = GLUBED) [id number] 19:33:00 Test Item Value Reference Range Interpretation [...] method. Completed by Nursing: NOCoronavirus 2019 nCoV [id number] 18:46:00 Test Item Value Reference Range Interpretation Comments Coronavirus 2019 nCoV Negative Negative Per arnie west, Bedside (test code = negativ e results should [id number]) be treated aspresumptive a nd, if inconsistent [...] with COVID-19. Spec Comments: NNT PRO-BRAIN NATRIURETIC [id number] 15:51:00 Test Item Value Reference Range Interpretation Comments NT PRO-BRAIN NATRIURETIC PEPTI 6079 PG/ML 0-100 H (test code = PROBNP) Completed by Nursing: [id number] 15:51:00 Test Item Value Reference Range Interpretation [...] yby method. Completed by Nursing: NOBASIC METABOLIC [id number] 15:51:00 Test Item Value Reference Range Interpretation [...] Completed by Nursing: NO- XR CHEST 1 [id number] 15:42:00 [facility] 1960 Sex: M Name: FAITH VANCE [facility] : 1960 Age/S: 60 / M [address] Unit #: [id number] Loc: [place] [address] Phys: Todd Jacobo MD Acct: [id number] Dis Date: Status: PRE ER PHONE #:[phone] Exam Date: 10/30/2020 1524 FAX #: Reason: chest pain EXAMS: CPT: [id number] XR CHEST 1 K03879 Fluoro Time: DAP (Gy m2): Air Kerma [...] PAGE 1 Signed Report Name: FAITH VANCE [place] : 1960 Age/S: 60 / M [address] Unit #: [id number] Loc: [place] [address] Phys: Todd Jacobo MD Acct: [id number] Dis Date: Status: PRE ER PHONE #: [phone] Exam Date: 10/30/2020 1528 FAX #: Reason: chest pain EXAMS: CPT: [id number] XR CHEST 1 V 58926 Fluoro Time: DAP (Gy m2): Air Kerma (mGy): <Continued> Technologist: Kim Andrews RT(R)(CT) Trnscb Date/Time: 10/30/2020 (1542) tMATTR.RB24 Orig Print D/T: S: 10/30/2020 (7723) PAGE 2 [facility]/O [id number] 15:31:00 Test Item Value Reference Range Interpretation [...] 9.70 fL 7.0-9.6 H MPV) BASIC METABOLIC [id number] 21:42:00 Test Item Value Reference Range Interpretation [...] 9.6 mg/dL 8.0-10.5 N CA) HEPATIC FUNCTION [id number] 21:42:00 Test Item Value Reference Range Interpretation [...] 114 IUnit/L 20-125 N code = ALKP) [id number] 21:42:00 Test Item Value Reference Range Interpretation Comments LIPASE (test code = LIP) 70 U/L 13-57 H [id number] 21:42:00 Test Item Value Reference Range Interpretation [...] by method. UA RFLX MICR CULT IF [id number] 21:37:00 Test Item Value Reference Range Interpretation [...] INDWELLING CATH (CEDENO)Cath Status: Under 72 hoursPROTHROMBIN [id number] 21:35:00 Test Item Value Reference Range Interpretation [...] (to prevent recurrent infar ct). THROMBOPLASTIN TIME [id number] 21:35:00 Test Item Value Reference Range Interpretation Comments THROMBOPLASTIN TIME 41.7 Seconds 25.0-39.5 H Therape utic Range: PARTIAL (test code = 50.4 - 88.3 Seconds PTT) Effective 09/04/2018 CBC W/AUTO [id number] 21:29:00 Test Item Value Reference Range Interpretation [...] = MDIFF) - CT ABD PELVIS W/O [id number] 20:49:00 [facility] 1960 Sex: M Name: FAITH VANCE [facility] : 1960 Age/S: 60 / M [address] [place] [address] Blvd Unit #: [id number] Loc: [place] [address] Phys: Gisel Eugene ARCHITECTURE DRAFTER Acct: [id number] Dis Date: Status: REG ER PHONE #: [phone] Exam Date: 08/23/20202024 FAX #: [phone] Reason: DIFFUSE ABDOMINAL PAIN EXAMS: CPT CODE: [id number] CT ABD PELVIS W/O CONT 51198 Clinical indication: Diffuse abdominal pain. Contrast - [...] 1 Signed Report (CONTINUED) Name: FAITH VANCE [facility] : 1960 Age/S: 60 / M [address] [place] [address] Blvd Unit #: [id number] Loc: [place] [address] Phys: Gisel Eugene [facility] Acct: [id number] Dis Date: Status: REG ER PHONE #: [phone] Exam Date: 08/23/20202024 FAX #: [phone] Reason: DIFFUSE ABDOMINAL PAIN EXAMS: CPT CODE: [id number] CT ABD PELVIS W/O CONT 49603 <Continued> Peritoneum/Other: No extraluminal air. No extraluminal fluid. IMPRESSION: 1. No acute process in the abdomen and pelvis. 2. Hepatic steatosis. 3. Cholecystectomy. Mild prominence of the proximal common bile duct likely due to increased capacitance. 4. 2.3 x 2.2 cm simple right interpolar renal cyst. Tiny nonobstructive left renalcalculus. No hydronephrosis. 5. Normal appendix. 6. Posterior instrumented fusion from L4 through B2ryzqtb. 7. Small left pleural effusion. at 2049 Reported and signed by: Irene Katz M.D. 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 at [facility] BASIC METABOLIC [id number] 08:00:00 Test Item Value Reference Range Interpretation [...] 9.9 mg/dL 8.0-10.5 N CA) CBC W/AUTO [id number] 07:08:00 Test Item Value Reference Range Interpretation [...] DIFF REQUIRED (test code NO = MDIFF) [id number] 05:21:00 Test Item Value Reference Range Interpretation Comments GLUBED (test code = 150 MG/DL 70-110 H Performe d by certified GLUBED) 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 at [facility] [id number] 21:13:00 Test Item Value Reference Range Interpretation Comments GLUBED (test code = 129 MG/DL 70-110 H Performe d by certified GLUBED) 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 at [facility] [id number] 16:48:00 Test Item Value Reference Range Interpretation Comments GLUBED (test code = 116 MG/DL 70-110 H Performe d by certified GLUBED) 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 at [facility] [id number] 12:18:00 Test Item Value Reference Range Interpretation Comments GLUBED (test code = 136 MG/DL 70-110 H Performe d by certified GLUBED) 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 at [facility] [id number] 12:18:00 Test Item Value Reference Range Interpretation Comments GLUBED (test code = 151 MG/DL 70-110 H Performe d by certified GLUBED) 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 at [facility] CBC W/AUTO [id number] 07:32:00 Test Item Value Reference Range Interpretation [...] (test code NO = MDIFF) BASIC METABOLIC [id number] 07:29:00 Test Item Value Reference Range Interpretation [...] code = 9.0 mg/dL 8.0-10.5 N CA) [id number] 05:19:00 Test Item Value Reference Range Interpretation Comments GLUBED (test code = 135 MG/DL 70-110 H Performe d by certified GLUBED) 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 at [facility] [id number] 20:31:00 Test Item Value Reference Range Interpretation Comments GLUBED (test code = 189 MG/DL 70-110 H Performe d by certified GLUBED) 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 at [facility] [id number] 17:41:00 Test Item Value Reference Range Interpretation Comments GLUBED (test code = 140 MG/DL 70-110 H Performe d by certified GLUBED) 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 at [facility] - CTA CHEST FOR [id number] 13:48:00 [facility] 1960 Sex: M Name: FAITH VANCE [facility] : 1960 Age/S: 60 / M [address] [place] [address] Unit #: [id number] Loc: [place] [address] Phys: Gina Gonzalez NP Acct: [id number] Dis Date: Status: ADM IN PHONE #: [phone] Exam Date: 08/12/2020911 FAX #: [phone] Reason: CP, elevated D-dimer EXAMS: CPT CODE: [id number] [place] [address] PROCEDURE: CTA CHEST INDICATION: CP, elevated D-dimer; [...] 1 Signed Report (CONTINUED) Name: FAITH VANCE [facility] : 1960 Age/S: 60 / M [address] [place] [address] Blvd Unit #: [id number] Loc: [place] [address] Phys: Gina Gonzalez NP Acct: [id number] Dis Date: Status: ADM IN PHONE #: [phone] Exam Date: 08/12/2020 0912 FAX #: [phone] Reason: CP, elevated D-dimer EXAMS: CPT CODE: [id number] [place] [address] <Continued> contrast enhancement. No acute abnormality demonstrated. MUSCULOSKELETAL: Healed median sternotomy. No acuteskeletal abnormality. IMPRESSION: 1. Negative for pulmonary embolic disease within limitations noted. 2. Atherosclerosis. 3. Coronary arterial calcifications with prior coronary arterial stents and CABG. 4. Interstitial edema. No consolidation. 5. Small bilateral pleural effusions. SL: [id number] at 1348 Reported and signed by: Christiano Piña M.D. 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 at [facility] CBC W/AUTO [id number] 09:17:00 Test Item Value Reference Range Interpretation [...] (test code NO = MDIFF) BASIC METABOLIC [id number] 08:28:00 Test Item Value Reference Range Interpretation [...] code = 8.3 mg/dL 8.0-10.5 N CA) [id number] 08:28:00 Test Item Value Reference Range Interpretation Comments PHOSPHOROUS (test code = PHOS) 3.6 MG/DL 2.5-4.9 N [id number] 08:28:00 Test Item Value Reference Range Interpretation Comments MAGNESIUM (test code = MAG) 1.94 mg/dL 1.80-2.40 N [id number] 07:16:00 Test Item Value Reference Range Interpretation Comments GLUBED (test code = 170 MG/DL 70-110 H Performe d by certified GLUBED) 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 at [facility] [id number] 07:16:00 Test Item Value Reference Range Interpretation Comments GLUBED (test code = 137 MG/DL 70-110 H Performe d by certified GLUBED) 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 at [facility] [id number] 17:01:00 Test Item Value Reference Range Interpretation Comments GLUBED (test code = 88 MG/DL 70-110 N Performe d by certified GLUBED) 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 at [facility] [id number]-[id number] 16:56:00 Test Item Value Reference Range Interpretation Comments ACT-ISTAT (test code 186 SEC 74-137 H Perform ed by certified = ACTI) 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 at [facility] [id number]-[id number] 15:03:00 Test Item Value Reference Range Interpretation Comments ACT-ISTAT (test code 235 SEC 74-137 H Perform ed by certified = ACTI) 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 at [facility] [id number] 11:33:00 Test Item Value Reference Range Interpretation Comments GLUBED (test code = 97 MG/DL 70-110 N Performe d by certified GLUBED) 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 at [facility] [id number] 06:54:00 Test Item Value Reference Range Interpretation Comments GLUBED (test code = 136 MG/DL 70-110 H Performe d by certified GLUBED) 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 at [facility] BASIC METABOLIC [id number] 06:00:00 Test Item Value Reference Range Interpretation [...] COMMENTS: To be done morning of Heart [id number] 06:00:00 Test Item Value Reference Range Interpretation Comments PHOSPHOROUS (test code = PHOS) 4.1 MG/DL 2.5-4.9 N COMMENTS: To be done morning of Heart [id number] 06:00:00 Test Item Value Reference Range Interpretation Comments MAGNESIUM (test code = MAG) 1.74 mg/dL 1.80-2.40 L COMMENTS: To be done morning of Heart CathTHROMBOPLASTIN TIME [id number] 05:55:00 Test Item Value Reference Range Interpretation Comments THROMBOPLASTIN TIME 37.9 Seconds 25.0-39.5 N Therape utic Range: PARTIAL (test code = 50.4 - 88.3 Seconds PTT) Effective 09/04/2018 CBC W/AUTO [id number] 05:44:00 Test Item Value Reference Range Interpretation [...] COMMENTS: To be done morning of Heart [id number] 05:44:00 Test Item Value Reference Range Interpretation Comments GLUBED (test code = 92 MG/DL 70-110 N Performe d by certified GLUBED) 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 at [facility] HGBA1C%2020-08-10 17:22:00 Test Item Value Reference Range Interpretation Comments HGBA1C% (test code = HGBA1C%) 6.6 %A1C 4.8-6.0 H [id number] 17:17:00 Test Item Value Reference Range Interpretation Comments GLUBED (test code = 118 MG/DL 70-110 H Performe d by certified GLUBED) 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 at [facility] TSH REFLEX TO [id number] 15:37:00 Test Item Value Reference Range Interpretation Comments TSH REFLEX TO FT4 (test code = 3.19 IU/mL 0.42-5.47 N TSHREFLEX) [id number] 15:37:00 Test Item Value Reference Range Interpretation [...] y by method. COVID 19 Asymptomatic IH [id number] 11:35:00 Test Item Value Reference Range Interpretation [...] y tests. COMMENTS: If not done this gnrmsnkqgIQYVIJEM-[id number] 11:31:00 Test Item Value Reference Range Interpretation [...] titative results may babak y by method. [id number] 11:28:00 Test Item Value Reference Range Interpretation [...] APPROPRIATECLIN ICAL EUALUATIONS. [A utomated message] The [employer] stem which generated this result transmitted ref erence range: <=500. T he reference range was not u sed to interpret this result as normal/abnormal . [id number] 10:48:00 Test Item Value Reference Range Interpretation Comments GLUBED (test code = 158 MG/DL 70-110 H Performe d by certified GLUBED) 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 at [facility] B-TYPE NATRIURETIC [id number] 08:19:00 Test Item Value Reference Range Interpretation Comments B-TYPE NATRIURETIC PEPTIDE (test 508.0 PG/ML 0-100 H code = BNP) BASIC METABOLIC [id number] 08:11:00 Test Item Value Reference Range Interpretation [...] 9.1 mg/dL 8.0-10.5 N CA) HEPATIC FUNCTION [id number] 08:11:00 Test Item Value Reference Range Interpretation [...] 174 IUnit/L 20-125 H code = ALKP) [id number] 08:11:00 Test Item Value Reference Range Interpretation Comments MAGNESIUM (test code = MAG) 1.80 mg/dL 1.80-2.40 N [id number] 08:11:00 Test Item Value Reference Range Interpretation [...] may babak y by method. BASIC METABOLIC [id number] 08:09:00 Test Item Value Reference Range Interpretation [...] code = CA) mg/dL 8.0-10.5 HEPATIC FUNCTION [id number] 08:09:00 Test Item Value Reference Range Interpretation Comments TOTAL PROTEIN (test code = PROT) g/dL 6.4-8.2 ALBUMIN (test code = ALB) g/dL 3.4-5.0 BILIRUBIN TOTAL (test code = BILT) mg/dL 0.0-1.0 BILIRUBIN DIRECT (test code = BILD) MG/DL 0.0-0.30 SGOT/AST (test code = AST) IUnit/L 15-37 SGPT/ALT (test code = ALT) IUnit/L 30-65 ALKALINE PHOSPHATASE TOTAL (test IUnit/L 20-125 code = ALKP) [id number] 08:09:00 Test Item Value Reference Range Interpretation Comments MAGNESIUM (test code = MAG) mg/dL 1.80-2.40 [id number] 08:09:00 Test Item Value Reference Range Interpretation [...] results may babak y by method. PROTHROMBIN [id number] 08:06:00 Test Item Value Reference Range Interpretation [...] (to prevent recurrent infar ct). THROMBOPLASTIN TIME [id number] 08:06:00 Test Item Value Reference Range Interpretation Comments THROMBOPLASTIN TIME 44.5 Seconds 25.0-39.5 H Therape utic Range: PARTIAL (test code = 50.4 - 88.3 Seconds PTT) Effective 09/04/2018 CBC W/AUTO [id number] 07:58:00 Test Item Value Reference Range Interpretation [...] NO = MDIFF) - XR CHEST 1 [id number] 07:57:00 [facility] 1960 Sex: M FAX: Todd Jacobo MD [phone] [place]: St: REG FAX: Martínez Dash NP [phone] Name: FAITH VANCE [facility] [place] : 1960 Age/S: 60/M [address] [place], [place] [address] Unit #: [id number] Loc: [place] [address] Phys: Martínez Dash NP Acct: [id number] Dis Date: Status: REG ER PHONE #: [phone] Exam Date: 08/10/2020752 FAX #: [phone] Reason: Chest Pain EXAMS: CPT CODE: [id number] XR CHEST 1 V 94774 Chest single view 08/10/2020 HISTORY: Chest pain. Comparison is made to 05/21/2018 FINDINGS: Pacemaker and midline sternotomy wires are stable. The lungs are hypoinflated. No consolidation or pleural effusion is present. No vascular congestion or interstitial edema is present. Heart size is mildly enlarged. Aorta is unchanged. IMPRESSION: Hypoinflated lungs. No acute cardiopulmonary process. SL: [id number] at 0757 Reported and signed by: Khai Kruse M.D. CC: Todd Jacobo MD; Martínez Dash NP Technologist: Juliane Montemayor, RT(R) Trnsdisidro Date/Time/By: 08/10/2020 (0752) : By: [email or web address] Orig Print D/T: S: 08/10/2020 (4600) PAGE 1 Signed Report COMPREHENSIVE METABOLIC [id number] 18:02:00 Test Item Value Reference Range Interpretation [...] 50-136 H TOTAL (test code = ALKP) [id number] 18:02:00 Test Item Value Reference Range Interpretation Comments AMYLASE (test code = SERGIO) 82 Unit/L 25-115 N [id number] 18:02:00 Test Item Value Reference Range Interpretation Comments LIPASE (test code = LIP) 185 Unit/L 114-286 N COMPREHENSIVE METABOLIC [id number] 17:56:00 Test Item Value Reference Range Interpretation [...] TOTAL Unit/L 50-136 (test code = ALKP) [id number] 17:56:00 Test Item Value Reference Range Interpretation Comments AMYLASE (test code = SERGIO) Unit/L 25-115 [id number] 17:56:00 Test Item Value Reference Range Interpretation Comments LIPASE (test code = LIP) 185 Unit/L 114-286 N CBC W/AUTO [id number] 17:46:00 Test Item Value Reference Range Interpretation [...] CRITERIA MDIFF) - CT ABD PELVIS W/O [id number] 17:46:00 Name: FAITH VANCE [facility] : 1960 Age/S: 58 / M [address] Unit #: [id number] Loc: [place] [address] Phys: Nila Chester MD Acct: [id number] Dis Date: Status: REGER PHONE #: [phone] Exam Date: 01/03/2019 3381 FAX #: Reason: llq EXAMS: CPT: [id number] CT ABDPELVIS W/O CONT 47136 Location of dictation: B2 CT abdomen and [...] Center : 1960 Age/S: 58 / M [address] Unit #: [id number] Loc: [place] [address] Phys: Nila Chester MD Acct: [id number] Dis Date: Status: REG ER PHONE #: [phone] Exam Date: 01/03/2019 4093 FAX #: Reason: llq EXAMS: CPT: [id number] CT ABD PELVIS W/O CONT 54489 <Continued> at 1746 Reported and signed by: Renuka Willett M.D. CC: Nila Chester MD Technologist:RT Kevin(R)(CT)(MRI) CTDI: DLP: Trnscb Date/Time: 01/03/2019 (1746) [email or web address] Orig Print D/T: S: 01/03/2019 (6667) PAGE 2 Signed ReportBedside [id number] 11:47:00 Test Item Value Reference Range Interpretation Comments Bedside Glucose (test code = 33600-4) 155 70-120 H Meter ID: [id number] [facility] Centerodium Mnhii4728-15-26 08:31:00 Test Item Value Reference Range Interpretation Comments Sodium Level (test code = 2951-2) 139 136-[address] [facility] HospitalPotassium [id number] 08:31:00 Test Item Value Reference Range Interpretation Comments Potassium Level (test code = 2823-3) 4.0 3.5-5.[address] [facility] [facility] HospitalChloride [id number] 08:31:00 Test Item Value Reference Range Interpretation Comments Chloride Level (test code = 2075-0) 106 98-[address] [facility] HospitalCarbon Dioxide [id number] 08:31:00 Test Item Value Reference Range Interpretation Comments Carbon Dioxide Level (test code = 8-9) [facility] HospitalAnion [id number] 08:31:00 Test Item Value Reference Range Interpretation Comments Anion Gap (test code = 18250-9) 12.0 8-[address] [facility] [facility] [facility] HospitalBlood Urea Ybwkesbi3361-23-12 08:31:00 Test Item Value Reference Range Interpretation Comments Blood Urea Nitrogen (test code = 12-14 3094-0) [facility] HospitalCreatinine2018-06-08 08:31:00 Test Item Value Reference Range Interpretation Comments Creatinine (test code = 2160-0) 0.72 0.72-1.[address] [facility] HospitalBUN/Creatinine Yepik7515-95-11 08:31:00 Test Item Value Reference Range Interpretation Comments BUN/Creatinine Ratio (test code = 11-13 3097-3) [facility] HospitalEstimat Glomerular Filtration [id number] 08:31:00 Test Item Value Reference Range Interpretation Comments Estimat Glomerular Filtration Rate 60- >60 (test code = 28683-8) Ranges were taken from the National Kidney Disease Education Program and the National Kidney Foundation literature.Reference ranges:60 or greater: Vkuoso37- 59 (for 3 consecutive months): Chronic kidneydisease 15 or less: Kidney failure [facility] HospitalGlucose [id number] 08:31:00 Test Item Value Reference Range Interpretation Comments Glucose Level (test code = XPS0766) 195 74-[address] [facility] HospitalCalcium [id number] 08:31:00 Test Item Value Reference Range Interpretation Comments Calcium Level (test code = 03164-6) 9.0 8.4-10.[address] [facility] HospitalWhite Blood [id number] 08:12:00 Test Item Value Reference Range Interpretation Comments White Blood Count (test code = 6690-2) 6.06 4.8-10.[address] [facility] HospitalRed Blood [id number] 08:12:00 Test Item Value Reference Range Interpretation Comments Red Blood Count (test code = 789-8) 4.22 4.3-5.[address] [facility] HospitalHemoglobin2018-06-08 08:12:00 Test Item Value Reference Range Interpretation Comments Hemoglobin (test code = 05291-7) 12.5 14.0-18.[address] [facility] HospitalHematocrit2018-06-08 08:12:00 Test Item Value Reference Range Interpretation Comments Hematocrit (test code = 4544-3) 36.2 38.2-49.[address] [facility] HospitalMean Corpuscular Mpbzqt5244-24-19 08:12:00 Test Item Value Reference Range Interpretation Comments Mean Corpuscular Volume (test code = 85.8 81-99 787-2) [facility] HospitalMean Corpuscular Oeyglzbnut2306-97-13 08:12:00 Test Item Value Reference Range Interpretation Comments Mean Corpuscular Hemoglobin (test code 29.6 28-32 = 785-6) [facility] HospitalMean Corpuscular Hemoglobin Dovbahq8943-44-38 08:12:00 Test Item Value Reference Range Interpretation Comments Mean Corpuscular Hemoglobin Concent 34.5 31-35 (test code = 786-4) [facility] HospitalRed Cell Distribution Letcg6264-71-64 08:12:00 Test Item Value Reference Range Interpretation Comments Red Cell Distribution Width (test code 14.2 11.7-14.4 = 07717-4) [facility] HospitalPlatelet Rengu6524-94-01 08:12:00 Test Item Value Reference Range Interpretation Comments Platelet Count (test code = 777-[address] HospitalNeutrophils (%) (Auto)2017-10-27 08:12:00 Test Item Value Reference Range Interpretation Comments Neutrophils (%) (Auto) (test code = 51.2 38.7-80.0 50216-2) [facility] HospitalLymphocytes (%) (Auto)2017-10-27 08:12:00 Test Item Value Reference Range Interpretation Comments Lymphocytes (%) (Auto) (test code = 33.7 18.0-39.1 736-9) [facility] HospitalMonocytes (%) (Auto)2017-10-27 08:12:00 Test Item Value Reference Range Interpretation Comments Monocytes (%) (Auto) (test code = 9.1 4.4-11.3 5905-5) [facility] HospitalEosinophils (%) (Auto)2017-10-27 08:12:00 Test Item Value Reference Range Interpretation Comments Eosinophils (%) (Auto) (test code = 4.8 0.0-6.0 713-8) [facility] HospitalBasophils (%) (Auto)2017-10-27 08:12:00 Test Item Value Reference Range Interpretation Comments Basophils (%) (Auto) (test code = 0.7 0.0-1.0 706-2) [facility] HospitalIM GRANULOCYTES %2017-10-27 08:12:00 Test Item Value Reference Range Interpretation Comments IM GRANULOCYTES % (test code = IM 0.5 0.0-1.0 GRANULOCYTES %) [facility] HospitalNeutrophils # (Auto)2017-10-27 08:12:00 Test Item Value Reference Range Interpretation Comments Neutrophils # (Auto) (test code = 3.1 2.1-6.9 751-8) [facility] HospitalLymphocytes # (Auto)2017-10-27 08:12:00 Test Item Value Reference Range Interpretation Comments Lymphocytes # (Auto) (test code = 2.0 1.0-3.2 24048-1) [facility] HospitalMonocytes # (Auto)2017-10-27 08:12:00 Test Item Value Reference Range Interpretation Comments Monocytes # (Auto) (test code = 742-7) 0.6 0.2-0.[address] [facility] HospitalEosinophils # (Auto)2017-10-27 08:12:00 Test Item Value Reference Range Interpretation Comments Eosinophils # (Auto) (test code = 0.3 0.0-0.4 711-2) [facility] HospitalBasophils # (Auto)2017-10-27 08:12:00 Test Item Value Reference Range Interpretation Comments Basophils # (Auto) (test code = 704-7) 0.0 0.0-0.[address] HospitalAbsolute Immature Granulocyte ([id number] 08:12:00 Test Item Value Reference Range Interpretation Comments Absolute Immature Granulocyte (auto 0.03 0-0.1 (test code = Absolute Immature Granulocyte (auto) [facility] HospitalCreatine Kinase [id number] 15:14:00 Test Item Value Reference Range Interpretation Comments Creatine Kinase MB (test code = 3.90 0-5.0 56050-0) [facility] HospitalTroponin [id number] 15:14:00 Test Item Value Reference Range Interpretation Comments Troponin I (test code = TSB4759) 0.054 0-0.[address] [facility] [facility] HospitalCreatine Hnqkhw9381-19-67 15:07:00 Test Item Value Reference Range Interpretation Comments Creatine Kinase (test code = 2157-6) 297 30-[address] [facility] HospitalHemoglobin A1c Hlhvrub2606-37-08 08:04:00 Test Item Value Reference Range Interpretation Comments Hemoglobin A1c Percent (test code = 12.6 4.0-7.0 H Hemoglobin A1c Percent) [facility] HospitalTriglycerides Olndz8503-15-96 06:57:00 Test Item Value Reference Range Interpretation Comments Triglycerides Level (test code = 200 0-149 H 2571-8) [facility] HospitalCholesterol [id number] 06:57:00 Test Item Value Reference Range Interpretation Comments Cholesterol Level (test code = 2093-3) 239 0-199 H Less than 200 mg/dL Low Rilp366 - 239 mg/dL Borderline Vcsj938 mg/dl and greater High RiskCH[facility] St[facility] HospitalLDL Qemupgjxkja8130-16-26 06:57:00 Test Item Value Reference Range Interpretation Comments LDL Cholesterol (test code = 2089-1) 164 60-[address] [facility] HospitalHDL Dtykswnivji5127-39-49 06:57:00 Test Item Value Reference Range Interpretation Comments HDL Cholesterol (test code = 2085-9) 35 40-[address] [facility] [facility] HospitalCholesterol/HDL Anene8089-91-99 06:57:00 Test Item Value Reference Range Interpretation Comments Cholesterol/HDL Ratio (test code = 6.8 3.9-4.7 H 9830-1) [facility] HospitalUrine Barbiturates Aixbez6660-07-37 16:18:00 Test Item Value Reference Range Interpretation Comments Urine Barbiturates Screen (test code NEGATIVE NEGATIVE = 929883557) [facility] HospitalUrine Phencyclidine [id number] 16:18:00 Test Item Value Reference Range Interpretation Comments Urine Phencyclidine Screen (test NEGATIVE NEGATIVE code = 66331-2) [facility] HospitalUrine Amphetamines Dkpawe9202-12-93 16:18:00 Test Item Value Reference Range Interpretation Comments Urine Amphetamines Screen (test code NEGATIVE NEGATIVE = 62811-8) [facility] HospitalUrine Methamphetamines Miyqgc5666-49-83 16:18:00 Test Item Value Reference Range Interpretation Comments Urine Methamphetamines Screen (test NEGATIVE NEGATIVE code = Urine Methamphetamines Screen) [facility] HospitalUrine Benzodiazepines Kdkaap6356-33-50 16:18:00 Test Item Value Reference Range Interpretation Comments Urine Benzodiazepines Screen (test NEGATIVE NEGATIVE code = 41602-1) [facility] HospitalUrine Cocaine Rriqhf3799-07-83 16:18:00 Test Item Value Reference Range Interpretation Comments Urine Cocaine Screen (test code = NEGATIVE NEGATIVE 3398-5) [facility] HospitalUrine Cannabinoids Gyprrn9391-56-36 16:18:00 Test Item Value Reference Range Interpretation Comments Urine Cannabinoids Screen (test code NEGATIVE NEGATIVE = 59970-2) THESE RESULTS ARE FOR MEDICAL TREATMENT ONLYTHIS REPORT CONTAINS UNCONFIRMED SCREENING RESULTS*POSITIVE RESULTS WILL BE CONFIRMED BY REFERENCE LAB UPON REQUEST CUT-OFFDRUG CLASS CONCENTRATION ng/mLAmphetamines 1000Methamphetamines 1000Cocaine 300Opiate 300Phencyclidine 25Cannabinoid 50Barbiturates 300Benzodiazepine 300Methadone 300[facility] HospitalUrine Methadone Pmbflo5069-14-91 16:18:00 Test Item Value Reference Range Interpretation Comments Urine Methadone Screen (test code = NEGATIVE NEGATIVE 63965-1) THESE RESULTS ARE FOR MEDICAL TREATMENT ONLYTHIS REPORT CONTAINS UNCONFIRMED SCREENING RESULTS*POSITIVE RESULTS WILL BE CONFIRMED BY REFERENCE LAB UPON REQUEST CUT-OFFDRUG CLASS CONCENTRATION ng/mLAmphetamines 1000Methamphetamines 1000Cocaine Metabolite 300Opiate 300Phencyclidine 25Cannabinoid 50Barbiturates 300Benzodiazepine 300Methadone 300[facility] HospitalUrine Opiates [id number] 16:18:00 Test Item Value Reference Range Interpretation Comments Urine Opiates Screen (test code = NEGATIVE NEGATIVE 32029-1) [facility] HospitalProthrombin [id number] 14:13:00 Test Item Value Reference Range Interpretation Comments Prothrombin Time (test code = 5902-2) 13.6 11.9-14.[address] [facility] HospitalProthromb Time International [id number] 14:13:00 Test Item Value Reference Range Interpretation Comments Prothromb Time International Ratio 1.13 (test code = 6301-6) Oral Anticoagulant Therapy INR Values:1. Low Intensity Therapy 1.5 - 2.02. Moderate Intensity Therapy 2.0 - 3.03. High Intensity Therapy(1) 2.5 - 3.54. High Intensity Therapy(2) 3.0 - 4.05. Panic ValueINR > 5.0[facility] HospitalActivated Partial Thromboplast [id number] 14:13:00 Test Item Value Reference Range Interpretation Comments Activated Partial Thromboplast Time 27.6 23.8-35.5 (test code = 85590-0) [facility] HospitalTotal Nkfagkhbs9378-80-54 14:10:00 Test Item Value Reference Range Interpretation Comments Total Bilirubin (test code = 1975-2) 0.6 0.2-1.[address] [facility] HospitalAspartate Amino Transf (AST/SGOT)2017-10-23 14:10:00 Test Item Value Reference Range Interpretation Comments Aspartate Amino Transf (AST/SGOT) (test 36 5-34 H code = Aspartate Amino Transf (AST/SGOT)) [facility] HospitalAlanine Aminotransferase (ALT/SGPT)2017-10-23 14:10:00 Test Item Value Reference Range Interpretation Comments Alanine Aminotransferase (ALT/SGPT) 34 0-55 (test code = 1742-6) [facility] HospitalTotal Njanfcn3512-03-98 14:10:00 Test Item Value Reference Range Interpretation Comments Total Protein (test code = 2885-2) 7.3 6.5-8.[address] [facility] HospitalAlbumin2018-06-04 14:10:00 Test Item Value Reference Range Interpretation Comments Albumin (test code = 1751-7) 4.0 3.5-5.[address] HospitalGlobulin2018-06-04 14:10:00 Test Item Value Reference Range Interpretation Comments Globulin (test code = 30025-6) 3.3 2.3-3.[address] [facility] HospitalAlbumin/Globulin [id number] 14:10:00 Test Item Value Reference Range Interpretation Comments Albumin/Globulin Ratio (test code = 1.2 0.8-2.0 1759-0) [facility] HospitalAlkaline Xuygotybveb4034-51-74 14:10:00 Test Item Value Reference Range Interpretation Comments Alkaline Phosphatase (test code = 109 40-150 6768-6) [facility] HospitalB-Type Natriuretic Vexwsjx7348-32-19 14:10:00 Test Item Value Reference Range Interpretation Comments B-Type Natriuretic Peptide (test code = 92.8 0-100 24714-2) [facility] HospitalAmylase Zgouo1847-31-35 14:10:00 Test Item Value Reference Range Interpretation Comments Amylase Level (test code = 1798-8) 126 25-[address] [facility]2018-06-[facility] 14:10:00 Test Item Value Reference Range Interpretation Comments Lipase (test code = 3040-3) 98 8-[address]-Dimer Quantitative (PE/DVT)2017-10-23 14:02:00 Test Item Value Reference Range Interpretation Comments D-Dimer Quantitative (PE/DVT) (test 0.49 0.00-0.45 H code = 10508-9) [facility]Direct [id number] 13:47:00 Test Item Value Reference Range Interpretation Comments Direct Bilirubin (test code = 88764-3) 0.2 0.0-5.[address] [facility]esium [id number] 06:52:00 Test Item Value Reference Range Interpretation Comments Magnesium Level (test code = 18219-8) 1.5 1.3-2.[address] [facility] [id number] 05:09:00 Test Item Value Reference Range Interpretation Comments Urine WBC (test code = 5821-4) NONE 0-[address] [facility] [id number] 05:09:00 Test Item Value Reference Range Interpretation Comments Urine RBC (test code = 31385-0) NONE 0-[address] [facility] [id number] 05:09:00 Test Item Value Reference Range Interpretation Comments Urine Bacteria (test code = 88764-3) NONE NONE [facility] Epithelial [id number] 05:09:00 Test Item Value Reference Range Interpretation Comments Urine Epithelial Cells (test code = NONE NONE 10294-6) [facility] [id number] 04:46:00 Test Item Value Reference Range Interpretation Comments Urine Color (test code = 5778-6) YELLOW YELLOW [facility] Plihbjf1130-68-01 04:46:00 Test Item Value Reference Range Interpretation Comments Urine Clarity (test code = 14379-1) CLEAR CLEAR [facility] Specific [id number] 04:46:00 Test Item Value Reference Range Interpretation Comments Urine Specific [place] (test code = 1.010 1.010-1.025 5811-5) [facility] [id number] 04:46:00 Test Item Value Reference Range Interpretation Comments Urine pH (test code = 53046-4) 8 5-[address] [facility] Leukocyte Kexfgoew1569-58-58 04:46:00 Test Item Value Reference Range Interpretation Comments Urine Leukocyte Esterase (test code NEGATIVE NEGATIVE = 5799-2) [facility] [id number] 04:46:00 Test Item Value Reference Range Interpretation Comments Urine Nitrite (test code = 11343-6) NEGATIVE NEGATIVE [facility] [id number] 04:46:00 Test Item Value Reference Range Interpretation Comments Urine Protein (test code = 5804-0) NEGATIVE NEGATIVE [facility] Glucose (UA)2017-03-05 04:46:00 Test Item Value Reference Range Interpretation Comments Urine Glucose (UA) (test code = NEGATIVE NEGATIVE 2349-9) [facility] [id number] 04:46:00 Test Item Value Reference Range Interpretation Comments Urine Ketones (test code = 42866-9) NEGATIVE NEGATIVE [facility] Zuqathvxdczo9896-64-49 04:46:00 Test Item Value Reference Range Interpretation Comments Urine Urobilinogen (test code = 0.2 0.2-1 67766-3) [facility] Rwkgnmvnz3515-73-79 04:46:00 Test Item Value Reference Range Interpretation Comments Urine Bilirubin (test code = 1978-6) NEGATIVE NEGATIVE [facility] [id number] 04:46:00 Test Item Value Reference Range Interpretation Comments Urine Blood (test code = 31226-7) 2+ NEGATIVE H [facility] HospitalCTA BRAIN [place] [address] PatientName: FAITH VANCE MR #: [id number] : 1960 Age/Sex: 57/M Req #: [id number] Adm Physician: ALEXIS COX MD Ordered by: ALEXIS COX MD Report #: [id number] Location: [facility] Room/Bed: [place] [address] Procedure: [id number] CT/CTA BRAIN Exam Date: 10/24/17 Exam Time: [...] COPY TO: ALEXIS COX MDCT BRAIN WO [place] [address] Patient Name: FAITH VANCE MR #: [id number] : 1960 Age/Sex: 57/M Req #: [id number] Adm Physician: Ordered by: KHAI WAHL MD Report #: [id number] Location: Room/Bed: _ Procedure: [id number] CT/CT BRAIN WO Exam Date: 10/23/17 Exam [...] on 10/23/171642 [facility] [place] [address] PatientName: FAITH VANCE MR #: [id number] : 1960 Age/Sex: 57/M Req #: [id number] [facility] [place] Physician: Ordered by: KHAI WAHL MD Report #: [id number] Location: ER Room/Bed: __ Procedure: [id number] CT/CTA CHEST Exam Date: 10/23/17 Exam Time: [...] 10/23/17 162 COPY TO: KHAI WAHL V [facility] SINGLE (PORTABLE) [place] [address] PatientName: FAITH VANCE MR #: [id number] : 1960 Age/Sex: 57/M Req #: [id number] Adm Physician: Ordered by: KHAI WAHL MD Report #: [id number] Location: ER Room/Bed: _ Procedure: [id number] DX/CHEST SINGLE (PORTABLE) Exam Date: 10/23/17 Exam [...] Transcribed By: ANIBAL on 10/23/171442 COPY TO: KHAI WAHL V MDCT BRAIN WO [place] [address] PatientName: FAITH VANCE MR #: [id number] : 1960 Age/Sex: 56/M Req #: [id number] Adm Physician: Ordered by: JACQUELYN MONTES DE OCA MD Report #: [id number] Location: ER Room/Bed: Procedure: [id number] CT/CT BRAIN WO Exam Date: Exam Time: [...] MONTES DE OCA MDCT CERVICAL SPINE WO [place] [address] PatientName: FAITH VANCE MR #: [id number] : 1960 Age/Sex: 56/M Req #: [id number] Adm Physician: Ordered by: JACQUELYN MONTES DE OCA MD Report #: [id number] Location: ER Room/Bed: Procedure: [id number] CT/CT CERVICAL SPINE WO Exam Date: Exam [...] 6 COPY TO: JACQUELYN MONTES DE OCA [facility] SINGLE (PORTABLE) [place] [address] PatientName: FAITH VANCE MR #: [id number] : 1960 Age/Sex: 56/M Req #: [id number] Adm Physician: Ordered by: JACQUELYN MONTES DE OCA MD Report #: [id number] Location: ER Room/Bed: Procedure: [id number] DX/CHEST SINGLE (PORTABLE) Exam Date: 04/04/17 Exam [...] AM Dictated By: MARCO A TALBOT MD 0212 Transcribed By: ANDREE on 04/04/17211 COPY TO: JACQUELYN MONTES DE OCA MDHIP RIGHT 2-3 VW (+/- PELVIS) [place] [address] PatientName: FAITH VANCE MR #: [id number] : 1960 Age/Sex: 56/M Req #: [id number] Adm Physician: Ordered by: JACQUELYN MONTES DE OCA MD Report #: [id number] Location: ER Room/Bed: Procedure: [id number] DX/HIP RIGHT 2-3 VW (+/- PELVIS) Exam [...] DE OCA MDSP LUMBAR, COMPLETE MIN 4VW [place] [address] PatientName: FAITH VANCE MR #: [id number] : 1960 Age/Sex: 56/M Req #: [id number] Adm Physician: Ordered by: JACQUELYN MONTES DE OCA MD Report #: [id number] Location: ER Room/Bed: Procedure: [id number] DX/SP LUMBAR, COMPLETE MIN 4VW Exam Date: 04/04/17 Exam Time: 0108 REPORT STATUS: Signed SP LUMBAR, COMPLETE MIN 4VW Comparison: CT 08/10/2016 Clinical history: Status post fall with lowerback pain Findings: Postoperative changes from posterior fusion from left L4 vertebral body to L5-J7mdpmyn and posterior decompression. No evidence of hardware [...] 04/04/17227 COPY TO: JACQUELYN MONTES [place]CA [place] [address] PatientName: FAITH VANCE MR #: [id number] : 1960 Age/Sex: 56/M Req #: [id number] [facility] [place] Physician: NICHELLE PALACIOS MD Ordered by: SCOTT AMIN MD Report #: [id number] Location: [facility] Room/Bed: [facility] 186-1 Procedure: [id number] US/US ABDOMEN COMPLETE Exam Date: 03/08/17 Exam [...] on 03/08/17 1040 COPY TO: SCOTT AMIN [facility] (PORTABLE) [place] [address] PatientName: FAITH VANCE MR #: [id number] : 1960 Age/Sex: 56/M Req #: [id number] Adm Physician: Ordered by: JACQUELYN MONTES DE OCA MD Report #: [id number] Location: ER Room/Bed: Procedure: [id number] DX/CHEST SINGLE (PORTABLE) Exam Date: 03/05/17 Exam [...]
[2022-07-20] MEDS ORDERED: NITROGLYCERIN 0.4 MG/TAB SL ONE (23:24)
[2022-07-20 23:56] LABS: Absolute Lymphocytes (CBC) 0.8 K/uL (0.7-4.9); Hematocrit 31.2 % (39.6-49.0); Lymphocytes % 12.5 % (15.3-44.8); MCV 82.3 fL (80-100); MPV 7.6 fL (7.6-11.3); RBC Red Blood Cell Count 3.79 M/uL (4.33-5.43)
[2022-07-21 00:14] LABS: Albumin 2.7 g/dL (3.4-5.0); Bilirubin Total 0.6 mg/dL (0.2-1.0); Protein, Total 6.8 g/dL (6.4-8.2)
[2022-07-21] MEDS ORDERED: MORPHINE 2 MG/ML SYR ONE (00:16)
--- NOTE | 2022-07-21 00:29 | ER ---
Nurse's Notes [facility] Name: Ernie Rooney Age: 62 yrs Sex: Male : 1960 Arrival Date: 07/20/2022 Time: 23:06 Bed 4 Private MD: Diagnosis: Chest pain, unspecified Presentation: 07/20 23:08 Chief complaint: Patient states: called out for chest pain. Coronavirus screen: At this as6 time, the client does not indicate any symptoms associated with coronavirus-19. Ebola Screen: No symptoms or risks identified at this time. Initial Sepsis Screen: Does the patient meet any 2 criteria? No. Patient's initial sepsis screen is negative. Does the patient have a suspected source of infection? No. Patient's initial sepsis screen is negative. Risk Assessment: Do you want to hurt yourself or someone else? Patient reports no desire to harm self or others. Onset of symptoms was July 20, 2022. 23:08 Acuity: TONE 3 as6 23:08 Method Of Arrival: EMS: [facility] as6 23:12 Care prior to arrival: Medication(s) given: ASA, 81 mg, x 4. as6 Historical: - Allergies: 23:08 Nitroglycerin; as6 - PMHx: 23:08 Arthritis; Back pain; CAD; CHF; CVA; Depression; Fibromyalgia; GERD; Hyperlipidemia; as6 Hypertensive disorder; Hypothyroidism; IDDM; Left sided weakness from previous CVA; Myocardial infarction; Pacemaker; - PSHx: 23:08 bilat BKA's; bypass; CABG; as6 - Immunization history:: Client reports receiving the 2nd dose of the Covid vaccine. - Social history:: Smoking status: Patient denies any tobacco usage or history of. - Family history:: not pertinent. Screenin:11 [facility] ED Fall Risk Assessment (Adult) Score/Fall Risk Level 0 - 2 = Low Risk. Abuse as6 screen: Denies threats or abuse. Denies injuries from another. Nutritional screening: No deficits noted. Tuberculosis screening: No symptoms or risk factors identified. Assessment: 23:10 General: Appears uncomfortable, Behavior is cooperative, restless. Pain: Complains of as6 pain in chest Noted to be moaning. Cardiovascular: Reports chest pain. Respiratory: Respiratory effort is even, unlabored. 23:36 General: "I still have pain. can't y'all just give me a shot?" pt resting with eyes as6 closed, appears in no distress . 07/21 00:00 General: "I want pain medicine" provider notified . Pain: Pain currently is 8 out of 10 as6 on a pain scale. 00:53 General: pt waiting on transportation . as6 01:20 Reassessment: awaiting transportation. ha1 Vital Signs: 07/20 23:08 BP 138 / 74; Pulse 94; Resp 19 S; Temp 98.5(O); Pulse Ox 98% on R/A; Weight 66.68 kg as6 (R); Pain 7/10; 23:36 BP 116 / 67; Pulse 85; Resp 17 S; Pulse Ox 97% on R/A; as6 0302 00:38 BP 120 / 76; Pulse 85; Resp 19 S; Pulse Ox 98% on R/A; as6 ED Course: 07/20 23:06 Patient arrived in ED. as6 23:07 Cade Dye MD is Attending Physician. rt 23:08 Enoc Sahu, SHEBA is Primary Nurse. as6 23:08 Arm band placed on. as6 23:10 Triage completed. as6 23:11 Placed in gown. Bed in low position. Call light in reach. Side rails up X2. as6 23:27 Initial lab(s) drawn, by me, sent to lab. jb5 23:32 Chest Single View XRAY In Process Unspecified. EDMS 03 00:38 No provider procedures requiring assistance completed. Patient did not have IV access as6 during this emergency room visit. Administered Medications: 07/20 23:18 Not Given (gave by EMS): Aspirin 325 mg PO once as6 23:21 Drug: Nitroglycerin 0.4 mg Route: Sublingual; as6 23:26 Drug: Nitroglycerin 0.4 mg Route: Sublingual; as6 23:35 Drug: Nitroglycerin 0.4 mg Route: Sublingual; as6 07/21 00:39 Follow up: Response: No adverse reaction as6 00:13 CANCELLED (Other Intervention Used): morphine 2 mg IVP once over 4 mins as6 00:13 Drug: morphine 2 mg Route: IM; Site: right deltoid; as6 00:39 Follow up: Response: No adverse reaction as6 Medication: 07/20 23:11 VIS not applicable for this client. as6 Outcome: 07/21 00:29 Discharge ordered by . rt 00:38 Discharged to home as6 00:38 Condition: stable 00:38 Discharge instructions given to patient, Instructed on discharge instructions, follow up and referral plans. Demonstrated understanding of instructions, follow-up care. 03:26 Patient left the ED. as6 Signatures: Dispatcher [employer] EDGina Elizondo jb5 Enoc Sahu RN RN as6 Lucy Cat RN RN ha1 Cade Dye MD MD rt Corrections: (The following items were deleted from the chart) 07/20 23:37 23:36 General: "I still have pain. can't y'all just give me a shot?. as6 as6
--- NOTE | 2022-07-21 00:29 | EDPHYS ---
Physician Documentation [facility] Name: Ernie Rooney Age: 62 yrs Sex: Male : 1960 Arrival Date: 07/20/2022 Time: 23:06 Bed 4 Private MD: ED Physician Cade Dye HPI: 07/20 23:52 This 62 yrs old Male presents to ER via EMS with complaints of Chest pain. rt 23:52 The patient or guardian reports chest pain that is located primarily in the substernal rt area. Onset: 1 hour(s) ago. The pain does not radiate. Associated signs and symptoms: The patient has no apparent associated signs or symptoms. The chest pain is described as a pressure. Duration: The patient or guardian reports a single episode. Severity of pain: At its worst the pain was moderate. The patient has experienced similar episodes in the past, chronically. The patient has been recently seen by a physician: earlier today, with similar presenting complaints. Historical: - Allergies: 23:08 Nitroglycerin; as6 - PMHx: 23:08 Arthritis; Back pain; CAD; CHF; CVA; Depression; Fibromyalgia; GERD; Hyperlipidemia; as6 Hypertensive disorder; Hypothyroidism; IDDM; Left sided weakness from previous CVA; Myocardial infarction; Pacemaker; - PSHx: 23:08 bilat BKA's; bypass; CABG; as6 - Immunization history:: Client reports receiving the 2nd dose of the Covid vaccine. - Social history:: Smoking status: Patient denies any tobacco usage or history of. - Family history:: not pertinent. ROS: 23:52 Constitutional: Negative for fever, chills, and weight loss, Eyes: Negative for injury, rt pain, redness, and discharge, Respiratory: Negative for shortness of breath, cough, wheezing, and pleuritic chest pain, Abdomen/GI: Negative for abdominal pain, nausea, vomiting, diarrhea, and constipation, Skin: Negative for injury, rash, and discoloration, Neuro: Negative for headache, weakness, numbness, tingling, and seizure, Psych: Negative for depression, anxiety, suicide ideation, homicidal ideation, and hallucinations. 23:52 Cardiovascular: Positive for chest pain, Negative for edema. Exam: 23:52 Constitutional: This is a well developed, well nourished patient who is awake, alert, rt and in no acute distress. Head/Face: Normocephalic, atraumatic. Chest/axilla: Normal chest wall appearance and motion. Nontender with no deformity. No lesions are appreciated. Cardiovascular: Regular rate and rhythm with a normal S1 and S2. No gallops, murmurs, or rubs. Normal PMI, no JVD. No pulse deficits. Respiratory: Lungs have equal breath sounds bilaterally, clear to auscultation and percussion. No rales, rhonchi or wheezes noted. No increased work of breathing, no retractions or nasal flaring. Abdomen/GI: Soft, non-tender, with normal bowel sounds. No distension or tympany. No guarding or rebound. No evidence of tenderness throughout. Skin: Warm, dry with normal turgor. Normal color with no rashes, no lesions, and no evidence of cellulitis. Neuro: Awake and alert, GCS 15, oriented to person, place, time, and situation. Cranial nerves II-XII grossly intact. Motor strength 5/5 in all extremities. Sensory grossly intact. Cerebellar exam normal. Normal gait. Psych: Awake, alert, with orientation to person, place and time. Behavior, mood, and affect are within normal limits. 23:52 Musculoskeletal/extremity: Bilateral below the knee amputations. 23:53 ECG was reviewed by the Attending Physician. rt Vital Signs: 23:08 BP 138 / 74; Pulse 94; Resp 19 S; Temp 98.5(O); Pulse Ox 98% on R/A; Weight 66.68 kg as6 (R); Pain 7/10; 23:36 BP 116 / 67; Pulse 85; Resp 17 S; Pulse Ox 97% on R/A; as6 07/21 00:38 BP 120 / 76; Pulse 85; Resp 19 S; Pulse Ox 98% on R/A; as6 MDM: 07/20 23:11 Patient medically screened. rt 07/21 00:29 Differential diagnosis: abnormal EKG, acute myocardial infarction, pneumonia, rt pneumothorax, pulmonary embolus. HEART Score: History: Moderately Suspicious (1), ECG: Non specific repolarization disturbance / LBTB / PM (1), Age: > 45 and < 65 years (1), Risk Factors: > or = 3 Risk factors for atherosclerotic disease (2), Troponin: < or = 1 x Normal Limit (0), Total Score = 5. The patient was not given aspirin in the Emergency Department. Patient reports taking aspirin within the past 24 hours. Data reviewed: vital signs, nurses notes, old medical records, lab test result(s), EKG, radiologic studies. Consideration of Admission/Observation Escalation of care including admission/observation considered. Test considered but Not performed: CT: Low suspicion for PE, CT scan not indicated. Counseling: I had a detailed discussion with the patient and/or guardian regarding: the historical points, exam findings, and any diagnostic results supporting the discharge/admit diagnosis, lab results, radiology results, the need for outpatient follow up. Response to treatment: the patient's symptoms have markedly improved after treatment. 07/20 23:16 Order name: CBC with Diff; Complete Time: 00:06 rt 07/20 23:16 Order name: CMP; Complete Time: 00:15 rt 07/20 23:16 Order name: Troponin High Sensitivity; Complete Time: 00:15 rt 07/20 23:16 Order name: Chest Single View XRAY rt EC/01 23:53 Rate is 96 beats/min. Rhythm is regular, Paced with No ectopy, ST, T waves, conduction rt consistent with ventricular paced rhythm. QT interval is prolonged at 528 msec. No Q waves. Interpreted by me. Administered Medications: 23:18 Not Given (gave by EMS): Aspirin 325 mg PO once as6 23:21 Drug: Nitroglycerin 0.4 mg Route: Sublingual; as6 23:26 Drug: Nitroglycerin 0.4 mg Route: Sublingual; as6 23:35 Drug: Nitroglycerin 0.4 mg Route: Sublingual; as6 07/21 00:39 Follow up: Response: No adverse reaction as6 00:13 CANCELLED (Other Intervention Used): morphine 2 mg IVP once over 4 mins as6 00:13 Drug: morphine 2 mg Route: IM; Site: right deltoid; as6 00:39 Follow up: Response: No adverse reaction as6 Disposition Summary: 07/21/22 00:29 Discharge Ordered Location: Home rt Problem: an ongoing problem rt Symptoms: have improved rt Condition: Stable rt Diagnosis - Chest pain, unspecified rt Followup: rt - With: Private Physician - When: 2 - 3 days - Reason: Discharge Instructions: - Discharge Summary Sheet rt - Nonspecific Chest Pain, Adult rt Forms: - Medication Reconciliation Form rt - Thank You Letter rt - Antibiotic Education rt - Prescription Opioid Use rt Signatures: Dispatcher [employer] Enoc Bennett RN RN as6 Cade Dye MD MD rt Corrections: (The following items were deleted from the chart) 00:13 00:06 morphine 2 mg IVP once over 4 mins ordered. rt as6
[2022-07-21 03:52] VITALS: TEMP 98.5
[2022-07-21 03:54] VITALS: BP 120/76; O2SAT 98
--- NOTE | 2022-07-21 15:25 | RAD REPORT ---
EXAM DESCRIPTION: RAD - Chest Single View - 07/20/2022 11:30 pm CLINICAL HISTORY: 62 years, Male, CHEST PAIN COMPARISON: 07/11/2022 FINDINGS: Single view of the chest was obtained portable. Prior films were compared. Lung volume is decreased. Again there is a dual-lead pacemaker via left subclavian. Sternotomy wires pericardial cli ps correspond to previous CABG. The heart is in the upper normal size. Thoracic aorta demonstrate mauri y minimal intimal calcification. Small trace of left pleural effusion with minimal compressive atelec tatic changes. The rest of the soft tissue and bony structures demonstrate to be unremarkable. IMPRESSION: Small trace left pleural effusion with minimal compressive atelectatic changes. Status post CABG. Pacemaker in place. Electronically signed by: Tato Dugan MD 07/20/2022 11:42 PM HEALTH EDUCATION SPECIALIST Due to temporary technical issues with the PACS/Fluency reporting system, reports are being signed by the in house radiologists without review as a courtesy to insure prompt reporting. The interpreting radiologist is fully responsible for the content of the report.
== END 2022-07-21 03:26 | disposition home or self-care (01) ==
LOC: ER 23:05
DX: R07.89 Other chest pain (principal); I10 Essential (primary) hypertension; I50.9 Heart failure, unspecified; Z95.0 Presence of cardiac pacemaker; Z95.1 Presence of aortocoronary bypass graft; Z88.8 Allergy status to other drugs, medicaments and biological substances; Z89.511 Acquired absence of right leg below knee; Z89.512 Acquired absence of left leg below knee
CPT/HCPCS: 85025; 36415; 84484; 80053; 71045; 96372; 99284; J2270

== ENCOUNTER 2022-07-21 12:27 | Emergency (ER) | payer OTHER ==
--- OUTSIDE RECORDS SUMMARY | 2022-07-21 12:35 | XMS REPORT | Continuity of Care Document ---
:1960 Author Organization [facility] t Address [address] [place] [address] Care Team Providers Name Role Phone MONIKA HALL MD Primary Care Physician [id number] Attending Clinician Unavailable Harshal Zhu Attending Clinician Unavailable Finn Shah Attending Clinician Unavailable Doctor Unassigned, [place] Attending Clinician Unavailable Josselyn Harding RN Attending [...] Attending Clinician Alis Garcia MD Attending Clinician [phone] Kaylyn Calvin MD Attending Clinician Tha Gunter [...] Unavailable Casper RAE, Michael Gaxiola Attending Clinician [phone] Nova RAE, Cortney Law Attending Clinician [phone] Emy SCRUGGS, Rhonda Attending Clinician Malia HALL, Dennis Arreola Attending Clinician Carlos Allen MD Attending Clinician ALEXIS COX Attending Clinician Unavailable JACQUELYN MONTES DE OCA Attending Clinician Unavailable NICHELLE PALACIOS Attending Clinician Unavailable [id number] Admitting Clinician Unavailable Nika Martin Admitting Clinician Unavailable KNOW, DOES_NOT Admitting Clinician Unavailable Physician, No Primary or Family Admitting Clinician UnavailMARTHA Balbuena Admitting Clinician Unavailable Martha Rowe MD Admitting Clinician Troy KU Admitting Clinician Unavailable MIHAELA MARTIN Admitting Clinician Unavailable OC BYRSON Admitting Clinician Unavailable Oc Bryson MD Admitting [...] Admitting Clinician Unavailable Michael Hernandez Admitting Clinician [phone] Dennis Finley MDmed Mohamed Admitting Clinician ALEXIS COX Admitting Clinician Unavailable NICHELLE PALACIOS Admitting Clinician Unavailable Payers Payer Name Policy Type Policy Number Effective Date Expiration Date Sujit daugherty HLSM HLSM [id number] Poly Adaptive [id number] 2018spring 00:00:00 [employer] [id number] [facility] Patient [...] Added automatic ally from request for surgery [id number] Troponin I Troponin I Disease Active 2020-0 [...] vers pain pain 2-27 ity of 00:00: [place] [facility] Pacemaker Pacemaker Disease Active 2019- Uni vers malfunctio malfunctio 2-04 it y of n n 00:00: [place] 00 [facility] Cellulitis Cellulitis Disease Active 2019- U nivers 1-19 ity of 00:00: [place] 00 [facility] Arterioven Arterioven Disease Active [...] 00:00: [place] involving involving 00 Medi uriel ione ione 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 Type 2 Type 2 Disease Active 2019- Univers diabetes diabetes 8-29 ity of mellitus mellitus 00:00: [place] without without 00 Medical complicati complicati Br anch on, on, without without long-term long-term current current use of use of insulin insulin Essential Essential Disease Active Uni vers hypertensi hypertensi 8-29 it y of on on 00:00: [place] [address] Medical Branch Other Other Disease Active Univers hyperlipid hyperlipid 8-29 it y of emia emia 00:00: [place] [facility] Stroke Stroke Disease Active Univers 5-12 ity of 00:00: [place] [address] Medical Branch Left-sided Left-sided Disease Active U nivers weakness weakness 5-11 ity of 00:00: [place] [facility] Left sided Left sided Disease Active U nivers numbness numbness 5-11 ity of 00:00: [place] 00 Medical Branch S/P admn S/P admn [...] rs angina angina 4-10 ity of 00:00: [place] [facility] Atypical Atypical Disease Active Unive rs chest pain chest pain 2-22 it y of 00:00: [place] [address] Medical Branch Chest pain Chest pain Problem Active [facility] 00 [facility] [place] Coronary CAD Problem Active [facility] artery (coronary [facility] disease artery Patient disease) [facility] [place] Diabetic DKA Problem Active [facility] ketoacidos (diabetic Esme es is ketoacidos Patien t es) [facility] [place] Hyperglyce Hyperglyce Problem Active [facility] bambi bambi [facility] Hypertensi Hypertensi Problem Active [facility] on on [facility] Pancreatit Pancreatit Problem Active [facility] is is [facility] Uncontroll Uncontroll Problem Active [facility] diabetes diabetes Patien t mellitus mellitus [facility] Allergies, Adverse Reactions, Alerts Allergy Allergy Status Severity Reaction(s) Onset Inactive Treating Comm ents Source Name Type Date Date Clinician No Known DA Active U [facility] 3-22 [place] 00:[facility]: d 00 [facility] No Known DA Active U [facility] Allergie 3- [place] 00:00: d 00 [facility] No Known DA Active U 2017-05 [facility] Allergie 2-31 Clear s 00:00: Mejia 00 [facility] No Known DA Active U 2017-05 [facility] Allergie 2-31 Clear s 00:00: Mejia 00 [facility] No Known DA Active U [facility] Allergie 3- [place] 00:00: e 00 [facility] NO KNOWN Drug Active Univers ALLERGIE Class ity of S [place] [facility] Social History Social Habit Start Date Stop Date Quantity Comments Source History of Passive smoker University of tobacco use [place] [facility] History SDOH University o f Alcohol Frequency [place] M edical [facility] History SDOH University o f Alcohol Std [place] [facility] Drinks Branch History SDOH University o f Alcohol Binge [place] [facility] History SDOH Food 2022-02-11 2022-02-11 1 Univers ity of Worry 00:00:00 00:00:00 [place] [facility] History SDOH Food 2022-02-11 2022-02-11 1 Univers ity of Scarcity 00:00:00 00:00:00 [place] [facility] History SDOH 2022-02-11 2022-02-11 2 University o f Transport Med 00:00:00 00:00:00 [place] [facility] History SDOH 2022-02-11 2022-02-11 2 University o f Transport Non-Med 00:00:00 00:00:00 [facility] edical Branch Exposure to 2022-01-30 2022-02-09 Not sure University of SARS-CoV-2 00:00:00 20:09:00 [facility] [place] [facility] (event) Branch Tobacco use and 2022-02-09 2022-02-09 Smokeless tobacco Un iversity of exposure 00:00:00 00:00:00 non-user [facility] Alcohol intake 2022-02-09 2022-02-09 1.71 /d University of 00:00:00 00:00:00 [facility] Tobacco Comment 2022-02-09 2022-02-09 quit 15 years ago Un iversity of 00:00:00 00:00:00 [facility] Education 2021-10-27 2021-10-27 9 University of 00:00:00 00:00:00 [facility] History SDOH 2020-03-16 2020-03-16 3 University o f Financial 00:00:00 00:00:00 [facility] Alcohol Comment 2019-07-18 2019-07-18 quit drinking Univ anika of 00:00:00 00:00:00 2013 but drank [facility] heavily before Branch this Sex [birth year] At [birth year] LUCY Sanders 00:00:00 00:00:00 [facility] Smoking Status Start Date Stop Date Source Ex-smoker 2022-02-09 00:00:00 2022-02-09 00:00:00 Universi ty of [facility] Medications Ordered Filled Start Stop Current Ordering Indication Dosage Frequency Signature Comments Components Source Medication Medication Date Date Medication? Clinician (SIG) Name Name aspirin 81 2021- No [id number] 81mg Take 1 Univers mg chewable 9-23 10-24 tablet by it y of tablet 00:00: 04:59 mouth [place] 00 :00 daily with Medical breakfast Branch for 30 days. glipiZIDE 5 2021- No [id number] 5mg Take 1 Univers mg tablet 9-23 10-24 tablet by ity of 00:00: 04:59 mouth in [place] 00 :00 the Medical morning Branch for 30 days. levothyroxi 2021- No [id number] 50ug Take 1 Univers ne 50 mcg 9-23 10-24 tablet by ity of tablet 00:00: 04:59 mouth [place] 00 :00 every Medical morning Branch for 30 days. lisinopriL 2021- No [id number] 2.5mg Take 1 Univers 2.5 mg 9-23 10-24 tablet by ity of tablet 00:00: 04:59 mouth in [place] 00 :00 the Medical morning Branch for 30 days. spironolact 2021- No [id number] 25mg Take 1 Univers one 25 mg 9-23 10-24 tablet by ity of tablet 00:00: 04:59 mouth in [place] 00 :00 the Medical morning Branch for 30 days. tamsulosin 2021- No [id number] .4mg Take 1 Univers 0.4 mg 24 9-23 10-24 capsule by ity of hr capsule 00:00: 04:59 mouth in [facility] 00 :00 the Medical morning Branch for 30 days. aspirin 81 2021- No [id number] 81mg Take 1 Univers mg chewable 9-23 10-24 tablet by it y of tablet 00:00: 04:59 mouth [place] 00 :00 daily with [facility] breakfast Branch for 30 days. glipiZIDE 5 2021- No [id number] 5mg Take 1 Univers mg tablet 9-23 10-24 tablet by ity of 00:00: 04:59 mouth in [place] 00 :00 the [facility] morning [place] for 30 days. levothyroxi 2021- No [id number] 50ug Take 1 Univers ne 50 mcg 9-23 10-24 tablet by ity of tablet 00:00: 04:59 mouth [place] 00 :00 every [facility] morning Branch for 30 days. lisinopriL 2021- No [id number] 2.5mg Take 1 Univers 2.5 mg 9-23 10-24 tablet by ity of tablet 00:00: 04:59 mouth in [place] 00 :00 the [facility] morning [place] for 30 days. spironolact 2021- No [id number] 25mg Take 1 Univers one 25 mg 9-23 10-24 tablet by ity of tablet 00:00: 04:59 mouth in [place] 00 :00 the [facility] morning [place] for 30 days. tamsulosin 2021- No [id number] .4mg Take 1 Univers 0.4 mg 24 9-23 10-24 capsule by ity of hr capsule 00:00: 04:59 mouth in [facility] 00 :00 the Medical morning Branch for 30 days. sulfur 2021- No [id number] 5mL 5 mL, Unive rs hexafluorid 02-10 Intravenou i ty of e microsphr 16:30: 16:30 s, ONCE, 1 [place] (LUMASON) 00 :00 dose, On Medica l injection 5 [place] Branch mL 02/10/22 at 1130, Routine
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 approving Restricted medication : NINFA CASTILLO traMADoL 0 Yes 50mg 50 mg, Univers (ULTRAM) 02-10 Oral, ity of tablet 50 15:10: Q6HPRN, [place] mg 57 Starting Medical on [facility] 02/10/22 at 1010, Until Discontinu ed, Routine, Pain (scale 7-10) lisinopriL 0 Yes 2.5mg 2.5 mg, Uni vers (PRINIVIL,Z 02-10 Oral, ity of ESTRIL) 14:00: DAILY, [place] tablet 2.5 00 First dose Med ical mg on [facility] 02/10/22 at 0900, Until Discontinu ed, Routine glipiZIDE Yes 5mg 5 mg, Univers (GLUCOTROL) 02-10 Oral, ity of tablet 5 mg 14:00: DAILY, [place] 00 First dose Medical on [facility] 02/10/22 at 0900, Until Discontinu ed, Routine enoxaparin 0 Yes 30mg 30 mg, Unive rs (LOVENOX) 02-10 Subcutaneo ity of injection 14:00: us, DAILY, [place] 30 mg 00 First dose Medical on [facility] 02/10/22 at 0900, Until Discontinu ed, Routine levothyroxi Yes 50ug 50 mcg, Uni vers ne 02-10 Oral, ity of (SYNTHROID) 11:00: QAM-0600, [place] tablet 50 00 First dose Medi uriel mcg on [facility] 02/10/22 at 0600, Until Discontinu ed, Routine morpHINE (2 2021- No 2mg 2 mg, Slow Univers mg/mL) 02-10 IV Push, ity of injection 2 08:45: 08:01 ONCE, 1 [place] mg 00 :00 dose, On Medical [facility] 02/10/22 at 0345, Routine furosemide 0 Yes 20mg 20 mg, IV Un char[place] (LASIX) 02-10 Push, Q8H, ity of injection 04:15: [place] [address] [facility] Medical 02/09/22 at Branch 2315, Until Discontinu ed, Routine spironolact 2021-0 Yes 25mg 25 mg, Univ ers one 02-10 Oral, ity of (ALDACTONE) 04:15: DAILY, [place] tablet 25 00 First dose Medi uriel mg on Mon [place] 02/09/22 at 2315, Until Discontinu ed, Routine atorvastati 2021-0 Yes 40mg 40 mg, Univ ers n (LIPITOR) 02-10 Oral, QHS, it y of tablet 40 04:15: First dose [place] mg 00 on Mon [facility] 02/09/22 at Branch 2315, Until Discontinu [...] dose Med ical 12.5 mg on Mon [place] 02/09/22 at 2315, Until Discontinu ed, Routine tamsulosin 2021-0 Yes .4mg 0.4 mg, Univ ers (FLOMAX) 02-10 Oral, ity of capsule 0.4 04:15: DAILY, [place] mg 00 First dose Medical on Mon [place] 02/09/22 at 2315, Until Discontinu ed, Routine gabapentin 2021-0 Yes 300mg 300 mg, Uni vers (NEURONTIN) 02-10 Oral, BID, it y of capsule 300 04:15: First dose [place] mg 00 on Mon [facility] 02/09/22 at Branch 2315, Until Discontinu ed, Routine sennosides 2021-0 Yes 8.6mg 8.6 mg, Uni vers (SENOKOT) 02-10 Oral, BID, ity of tablet 8.6 04:15: First dose [place] mg 00 on Mon [facility] 02/09/22 at Branch 2315, Until Discontinu ed, Routine docusate 2021-0 Yes 100mg 100 mg, Unive rs (COLACE) 02-10 Oral, BID, ity o f capsule 100 04:15: First dose [place] mg 00 on Mon [facility] 02/09/22 at Branch 2315, Until Discontinu [...] IV ity of (D50W) 04:01: Push, PRN, [place] injection 56 Starting Medica l 25 mL on Mon Branch 02/09/22 at 2301, Until Discontinu ed, PIERRE, Blood Glucose < or = 70 mg/dL and patient is unable to swallow or has mental status changes. atorvastati 2021- No [id number] 40mg Take 1 Univers n 40 mg - 10-23 tablet by ity of tablet 00:00: 04:59 mouth at [place] 00 :00 bedtime Medical for 30 Branch days. metoprolol 2021- No [id number] 12.5mg Take 0.5 Univers succinate 9-22 10-23 tablets by ity of XL 25 mg 24 00:00: 04:59 mouth in [place] hr tablet 00 :00 the Medical morning Branch for 30 days. atorvastati 2021- No [id number] 40mg Take 1 Univers n 40 mg -22 10-23 tablet by ity of tablet 00:00: 04:59 mouth at [place] 00 :00 bedtime Medical for 30 Branch days. metoprolol 2021- No [id number] 12.5mg Take 0.5 Univers succinate 02-10-23 tablets [...] at 0215, 1 mL gabapentin 2021- No [id number] 300mg Take 1 Univers 300 mg 11-05 capsule by ity of capsule 00:00: 04:59 mouth 3 [place] 00 :00 (three) Medical times Branch daily for 10 days. gabapentin 2021- No [id number] 300mg Take 1 Univers 300 mg 11-05 capsule by ity of capsule 00:00: 04:59 mouth 3 [place] 00 :00 (three) Medical times Branch daily for 10 days. aspirin 81 2021- No [id number] 81mg Take 1 Univers mg chewable 6-16 07-17 tablet by it y of tablet 00:00: 04:59 mouth [place] 00 :00 daily for Medical 30 days. [place] aspirin 81 2021- No [id number] 81mg Take 1 Univers mg chewable 6-16 07-17 tablet by it y of tablet 00:00: 04:59 mouth [place] 00 :00 daily for Medical 30 days. [place] aspirin 81 2021- No [id number] 81mg Take 1 Univers mg chewable 6-16 07-17 tablet by it y of tablet 00:00: 04:59 mouth [place] 00 :00 daily for Medical 30 days. [place] proMETHazin Yes [id number] 25mg Take 1 Univers e 25 mg 6-03 tablet by ity of tablet 00:00: mouth [place] 00 every 6 Medical (six) Branch hours as needed for Nausea and Vomiting (N/V). proMETHazin Yes [id number] 25mg Take 1 Univers e 25 mg 6-03 tablet by ity of tablet 00:00: mouth [place] 00 every 6 Medical (six) Branch hours as needed for Nausea and Vomiting (N/V). proMETHazin 2-0 Yes [id number] 25mg Take 1 Univers e 25 mg 6-03 tablet by ity of tablet 00:00: mouth [place] 00 every 6 Medical (six) Branch hours as needed for Nausea and Vomiting (N/V). proMETHazin 2-0 Yes [id number] 25mg Take 1 Univers e 25 mg 6-03 tablet by ity of tablet 00:00: mouth [place] 00 every 6 Medical (six) Branch hours as needed for Nausea and Vomiting (N/V). proMETHazin 2021-0 Yes [id number] 25mg Take 1 Univers e 25 mg 6-03 tablet by ity of tablet 00:00: mouth [place] 00 every 6 Medical (six) Branch hours as needed for Nausea and Vomiting (N/V). proMETHazin 2021-0 Yes [id number] 25mg Take 1 Univers e 25 mg 6-03 tablet by ity of tablet 00:00: mouth [place] 00 every 6 Medical (six) Branch hours as needed for Nausea and Vomiting (N/V). fenofibrate 2021-2021- No [id number] 134mg Take 1 Univers micronized -19 12- capsule by it y of 134 mg 00:00: 04:59 mouth [place] capsule 00 :00 daily for Medical 30 days. Branch lisinopriL 2021-2- No [id number] 2.5mg Take 1 Univers 2.5 mg 10-19- tablet by ity of tablet 00:00: 04:59 mouth [place] 00 :00 daily for Medical 30 days. Branch fenofibrate 2021-0 2- No [id number] 134mg Take 1 Univers micronized -19 12- capsule by it y of 134 mg 00:00: 04:59 mouth [place] capsule 00 :00 daily for Medical 30 days. Branch lisinopriL 2021-0 2- No [id number] 2.5mg Take 1 Univers 2.5 mg -19 12- tablet by ity of tablet 00:00: 04:59 mouth [place] 00 :00 daily for Medical 30 days. Branch fenofibrate 2021-0 2- No [id number] 134mg Take 1 Univers micronized 5-19 12- capsule by it y of 134 mg 00:00: 04:59 mouth [place] capsule 00 :00 daily for Medical 30 days. [place] lisinopriL 2021- No [id number] 2.5mg Take 1 Univers 2.5 mg 10-19- tablet by ity of tablet 00:00: 04:59 mouth [place] 00 :00 daily for Medical 30 days. Branch furosemide 2021- No [id number] 40mg Take 1 Univers 40 mg 5-30 [...] s: atrial fibrillati on calcitrioL 2021- No [id number] .5ug Take 1 Univers 0.5 mcg -18 11-30 capsule by ity o f capsule 00:00: 04:59 mouth [place] 00 :00 daily for Medical 30 days. Branch insulin NPH 2021- No [id number] 5U inject 5 Univers (HUMULIN N 5-30 -30 Units ity of NPH U-100 00:00: 04:59 under the [place] INSULIN) 00 :00 skin every Medic al 100 unit/mL evening Branc h injection for 30 days. atorvastati 2021- No [id number] 40mg Take 1 Univers n 40 mg 5-30 -30 tablet by ity of tablet 00:00: 04:59 mouth at [place] 00 :00 bedtime Medical for 30 Branch days. carvediloL 2021- No [id number] 3.125mg Take 1 Univers 3.125 mg 5-30 -30 tablet by ity o f tablet 00:00: 04:59 mouth 2 [place] 00 :00 (two) Medical times Branch daily with meals for 30 days. furosemide 2021- No [id number] 40mg Take 1 Univers 40 mg 5-30 -30 tablet by ity of tablet 00:00: 04:59 mouth [place] 00 :00 every Medical morning Branch and evening for 30 days. apixaban 5 2021- No [id number] 5mg Take 1 Univ ers mg tablet 5-30 06-30 tablet by ity of 00:00: 04:59 mouth 2 [place] 00 :00 (two) Medical times [place] daily for 30 days. Indication s: atrial fibrillati on calcitrioL 2021- No [id number] .5ug Take 1 Univers 0.5 mcg 5-30 06-30 capsule by ity o f capsule 00:00: 04:59 mouth [place] 00 :00 daily for Medical 30 days. Branch insulin NPH 2021- No [id number] 5U inject 5 Univers (HUMULIN N 5-30 06-30 Units ity of NPH U-100 00:00: 04:59 under the [place] INSULIN) 00 :00 skin every Medic al 100 unit/mL evening Branc h injection for 30 days. atorvastati 2021- No [id number] 40mg Take 1 Univers n 40 mg 5-30 06-30 tablet by ity of tablet 00:00: 04:59 mouth at [place] 00 :00 bedtime Medical for 30 Branch days. carvediloL 2021- No [id number] 3.125mg Take 1 Univers 3.125 mg 5-30 06-30 tablet by ity o f tablet 00:00: 04:59 mouth 2 [place] 00 :00 (two) Medical times [place] daily with meals for 30 days. furosemide 2021- No [id number] 40mg Take 1 Univers 40 mg 5-30 06-30 tablet by ity of tablet 00:00: 04:59 mouth [place] 00 :00 every Medical morning Branch and evening for 30 days. apixaban 5 2021- No [id number] 5mg Take 1 Univ ers mg tablet 5-30 06-30 tablet by ity of 00:00: 04:59 mouth 2 [place] 00 :00 (two) Medical times [place] daily for 30 days. Indication s: atrial fibrillati on calcitrioL 2021- No [id number] .5ug Take 1 Univers 0.5 mcg 5-30 06-30 capsule by ity o f capsule 00:00: 04:59 mouth [place] 00 :00 daily for Medical 30 days. Branch insulin NPH 2021- No [id number] 5U inject 5 Univers (HUMULIN N 5-30 06-30 Units ity of NPH U-100 00:00: 04:59 under the [place] INSULIN) 00 :00 skin every Medic al 100 unit/mL evening Branc h injection for 30 days. atorvastati 2021- No [id number] 40mg Take 1 Univers n 40 mg 5-30 06-30 tablet by ity of tablet 00:00: 04:59 mouth at [place] 00 :00 bedtime Medical for 30 Branch days. carvediloL 2021- No [id number] 3.125mg Take 1 Univers 3.125 mg 5-30 06-30 tablet by ity o f tablet 00:00: 04:59 mouth 2 [place] 00 :00 (two) Medical times Branch daily with meals for 30 days. metFORMIN Yes [id number] 500mg Take 1 U nivers 500 mg 3-02 tablet by ity of tablet 00:00: mouth [place] ([facility]) Medical times Branch daily with meals. metFORMIN Yes [id number] 500mg Take 1 U nivers 500 mg 3-02 tablet by ity of tablet 00:00: mouth [place] (two) Medical times Branch daily with meals. metFORMIN Yes [id number] 500mg Take 1 U nivers 500 mg 3-02 tablet by ity of tablet 00:00: mouth 2 [place] (two) Medical times Branch daily with meals. metFORMIN Yes [id number] 500mg Take 1 U nivers 500 mg 3-02 tablet by ity of tablet 00:00: mouth [place] (two) Medical times Branch daily with meals. metFORMIN Yes [id number] 500mg Take 1 U nivers 500 mg 3-02 tablet by ity of tablet 00:00: mouth [place] (two) Medical times Branch daily with meals. metFORMIN Yes [id number] 500mg Take 1 U nivers 500 mg 3-02 tablet by ity of tablet 00:00: mouth 2 [place] (two) Medical times Branch daily with meals. albuterol Yes [id number] 2{puff} Inhale 2 Univers 90 2-21 Puffs 2 ity of mcg/actuati 00:00: (two) [place] on inhaler 00 times Medical daily. Branch collagenase Yes [id number] Use as Univers 250 2-21 directed ity of unit/gram 00:00: by office Juan J as ointment 00 Medical Branch cyclobenzap Yes [id number] 10mg Take 1 Univers rine 10 mg 2-21 tablet by ity of tablet 00:00: mouth 2 [place] 00 (two) Medical times Branch daily as needed for Muscle Spasms. dextrometho Yes [id number] 10mL Take 10 mL Univers rphan-guaif 2-21 [...] for Pain (scale 4-6). melatonin 3 Yes [id number] 3mg Take 1 Univers mg tablet 2-21 tablet by ity o f 00:00: mouth at [place] 00 bedtime. Medical Branch ondansetron Yes [id number] 4mg Take 1 Univers 4 mg 2-21 tablet by ity of disintegrat 00:00: mouth [place] ing tablet 00 every 8 Medica l (eight) Branch hours as needed for Nausea and Vomiting (N/V). albuterol Yes [id number] 2{puff} Inhale 2 Univers 90 2-21 Puffs 2 ity of mcg/actuati 00:00: (two) [place] on inhaler 00 times Medical daily. Branch collagenase Yes [id number] Use as Univers 250 2-21 directed ity of unit/gram 00:00: by office [place] J as ointment 00 Medical Branch cyclobenzap Yes [id number] 10mg Take 1 Univers rine 10 mg 2-21 tablet by ity of tablet 00:00: mouth 2 [place] 00 (two) Medical times Branch daily as needed for Muscle Spasms. dextrometho 0 Yes [id number] 10mL Take 10 mL Univers rphan-guaif 2-21 [...] for Pain (scale 4-6). melatonin 3 Yes [id number] 3mg Take 1 Univers mg tablet 2-21 tablet by ity o f 00:00: mouth at [place] 00 bedtime. Medical Branch ondansetron Yes [id number] 4mg Take 1 Univers 4 mg 2-21 tablet by ity of disintegrat 00:00: mouth [place] ing tablet 00 every 8 Medica l (eight) Branch hours as needed for Nausea and Vomiting (N/V). albuterol Yes [id number] 2{puff} Inhale 2 Univers 90 2-21 Puffs 2 ity of mcg/actuati 00:00: (two) [place] on inhaler 00 times Medical daily. Branch collagenase Yes [id number] Use as Univers 250 2-21 directed ity of unit/gram 00:00: by office Juanj as ointment 00 Medical Branch cyclobenzap Yes [id number] 10mg Take 1 Univers rine 10 mg 2-21 tablet by ity of tablet 00:00: mouth 2 [place] 00 (two) Medical times Branch daily as needed for Muscle Spasms. dextrometho Yes [id number] 10mL Take 10 mL Univers rphan-guaif 2-21 [...] for Pain (scale 4-6). melatonin 3 Yes [id number] 3mg Take 1 Univers mg tablet 2-21 tablet by ity o f 00:00: mouth at [place] 00 bedtime. Medical Branch ondansetron Yes [id number] 4mg Take 1 Univers 4 mg 2-21 tablet by ity of disintegrat 00:00: mouth [place] ing tablet 00 every 8 Medica l (eight) Branch hours as needed for Nausea and Vomiting (N/V). albuterol Yes [id number] 2{puff} Inhale 2 Univers 90 2-21 Puffs 2 ity of mcg/actuati 00:00: (two) [place] on inhaler 00 times Medical daily. Branch collagenase 0 Yes [id number] Use as Univers 250 2-21 directed ity of unit/gram 00:00: by office [place] J as ointment 00 Medical Branch cyclobenzap Yes [id number] 10mg Take 1 Univers rine 10 mg 2-21 tablet by ity of tablet 00:00: mouth 2 [place] 00 (two) Medical times Branch daily as needed for Muscle Spasms. melatonin 3 Yes [id number] 3mg Take 1 Univers mg tablet 2-21 tablet by ity o f 00:00: mouth at [place] 00 bedtime. Medical Branch ondansetron Yes [id number] 4mg Take 1 Univers 4 mg 2-21 tablet by ity of disintegrat 00:00: mouth [place] ing tablet 00 every 8 Medica l (eight) Branch hours as needed for Nausea and Vomiting (N/V). albuterol Yes [id number] 2{puff} Inhale 2 Univers 90 2-21 Puffs 2 ity of mcg/actuati 00:00: (two) [place] on inhaler 00 times Medical daily. Branch collagenase Yes [id number] Use as Univers 250 2-21 directed ity of unit/gram 00:00: by office [place] J as ointment 00 Medical Branch cyclobenzap Yes [id number] 10mg Take 1 Univers rine 10 mg 2-21 tablet by ity of tablet 00:00: mouth 2 [place] 00 (two) Medical times Branch daily as needed for Muscle Spasms. melatonin 3 Yes [id number] 3mg Take 1 Univers mg tablet 2-21 tablet by ity o f 00:00: mouth at [place] 00 bedtime. Medical Branch ondansetron Yes [id number] 4mg Take 1 Univers 4 mg 2-21 tablet by ity of disintegrat 00:00: mouth [place] ing tablet 00 every 8 Medica l (eight) Branch hours as needed for Nausea and Vomiting (N/V). albuterol Yes [id number] 2{puff} Inhale 2 Univers 90 2-21 Puffs 2 ity of mcg/actuati 00:00: (two) [place] on inhaler 00 times Medical daily. Branch collagenase Yes [id number] Use as Univers 250 2-21 directed ity of unit/gram 00:00: by office Juan J as ointment 00 Medical Branch cyclobenzap Yes [id number] 10mg Take 1 Univers rine 10 mg 2-21 tablet by ity of tablet 00:00: mouth 2 [place] 00 (two) Medical times Branch daily as needed for Muscle Spasms. melatonin 3 Yes [id number] 3mg Take 1 Univers mg tablet 2-21 tablet by ity o f 00:00: mouth at [place] 00 bedtime. Medical Branch ondansetron Yes [id number] 4mg Take 1 Univers 4 mg 2-21 tablet by ity of disintegrat 00:00: mouth [place] ing tablet 00 every 8 Medica l (eight) Branch hours as needed for Nausea and Vomiting (N/V). dextrometho 2021- No [id number] 10mL Take 10 mL Univers rphan-guaif 07-12 [...] Brooke Frankel 00:00: 00:00 Patient 00 :00 [facility] Diflunisal Diflunisal 2015- No Todd Wynn 500 [...] Yes [address] [facility] Bisulfate Bisulfate [facility] (Plavix) 75 (Plavix) 75 P atient Mg Tablet Mg Tablet Medic al Center Cyclobenzap Cyclobenzap Yes [address] [facility] [address] rine Hcl rine Hcl Times A Luke s (Flexeril) (Flexeril) Day as P atient 5 Mg Tablet 5 Mg Tablet needed for Medical Muscle Center Spasms Doxazosin Doxazosin Yes [address] Mesylate Mesylate [facility] (Cardura) 8 (Cardura) 8 P atient Mg [...] [facility] Mg Tablet Mg Tablet Day [facility] Patient Medical [place] Hydrocodone Hydrocodone Yes [address] [facility] Bit/Acetami Bit/Acetami Hours as [facility] nophen nophen needed for Patie nt ([place] [facility] 10-325 10-325 Center Tablet) 1 [...] 2.5 Mg [facility] Tablet Tablet Patient [facility] [place] Metformin Metformin Yes [address] [facility] Hcl Hcl Day [facility] (Glucophage (Glucophage P atient ) 1,000 Mg ) 1,000 Mg Med ical Tablet Tablet Center Methadone Methadone Yes 5 Every [address] Hcl 5 Mg Hcl 5 Mg Hours [facility] Tablet Tablet Patient [facility] [place] Metoprolol Metoprolol Yes [address] Tartrate 25 Tartrate 25 L ukes Mg Tablet Mg Tablet Patie nt [facility] Nitroglycer Nitroglycer Yes As Needed [facility] in in [facility] (Nitrostat) (Nitrostat) P atient 0.4 Mg 0.4 Mg Medical Tab.subl Tab.subl Center Omeprazole Omeprazole Yes [address] 20 Mg 20 Mg [facility] Capsule.dr Lind. [facility] Simvastatin Simvastatin Yes [address] 80 Mg 80 Mg [facility]ukes Tablet Tablet Patient [facility] Tamsulosin Tamsulosin Yes Daily [facility] Hcl 0.4 Mg Hcl 0.4 Mg Esme es Cap.er.24h Cap.er.24h [facility] Tramadol Tramadol Yes [address] Hcl Hcl Daily as [facility]ukes (Ultram) 50 (Ultram) 50 needed for Patient Mg Tablet Mg Tablet Pain Medic al Center Venlafaxine Venlafaxine Yes [address] Hcl 75 Mg Hcl 75 Mg [facility]ukes Tab Tab Patient [facility] Albuterol Albuterol 2017- No [address] [facility] Sulfate Sulfate 10-15 Day as [facility]ukes (Proair Hfa (Proair Hfa 00:00 needed for Patient Inhaler*) Inhaler*) :00 [facility] Medical 8.5 Gm Inh, 8.5 Gm Inh, Of Breath Center 1 Inh 1 Inh Inhalation Inhalation Dicyclomine Dicyclomine 2017- No [address] Hcl 20 Mg Hcl 20 Mg 10-15 Daily Esme es Tablet, 20 Tablet, 20 00:00 Pa tient Mg Oral Mg Oral :00 [facility] Insulin Insulin 2017- No 40 7AM &Hs [...] 06-17 [facility]ukes Capsule., Capsule., 00:00 Patient :00 [facility] Center Insulin Insulin 90 Twice A [...] 25 Mg Oral :[address] [facility] Albuterol Albuterol As Needed [facility] Sulfate Sulfate 11-23 as needed Esme es (Ventolin (Ventolin 00:00 for Manjula ent Hfa) 18 Gm Hfa) 18 Gm :00 [facility] Medical Hfa.aer.ad, Hfa.aer.ad, Of [facility] 90 Mcg 90 Mcg Inhalation Inhalation Dicyclomine Dicyclomine Twice A [facility] Hcl 10 Mg Hcl 10 Mg 11-23 Day Luke s Capsule, 10 Capsule, 10 00:00 Patient Mg Oral Mg Oral :00 [facility] Methocarbam Methocarbam [address] ol [...] 10 Mg Oral 10 Mg Oral :00 [facility] Gabapentin Gabapentin 2014- No [address] 300 Mg 300 Mg 07- Times A [facility]ukes Capsule, Capsule, 00:00 Day Patien t 600 Mg Oral 600 Mg Oral :00 M [facility] Pregabalin Pregabalin 2013- No 150 Twice [...] Ordered Filled Immunization Date Status Comments [facility] e Immunization Name Name Influenza Virus 2021-01-16 Completed Universit y of Vaccine 00:00:00 [facility] Influenza Virus 2021-01-16 Completed Universit y of Vaccine 00:00:00 [facility] Influenza Virus 2021-01-16 Completed Universit y of Vaccine 00:00:00 [facility] Influenza Virus 2021-01-16 Completed Universit y of Vaccine 00:00:00 [facility] Influenza Virus 2021-01-16 Completed Universit y of Vaccine 00:00:00 [facility] Influenza Virus 2021-01-16 Completed Universit y of Vaccine 00:00:00 [facility] SARS-COV-2 COVID-19 2020-10-16 Completed Unive rsity of PEDRO/J&J VACCINE 00:00:00 [facility] SARS-COV-2 COVID-19 2020-10-16 Completed Unive rsity of PEDRO/J&J VACCINE 00:00:00 [facility] SARS-COV-2 COVID-19 2020-10-16 Completed Unive rsity of PEDRO/J&J VACCINE 00:00:00 [facility] SARS-COV-2 COVID-19 2020-10-16 Completed Unive rsity of PEDRO/J&J VACCINE 00:00:00 [facility] SARS-COV-2 COVID-19 2020-10-16 Completed Unive rsity of PEDRO/J&J VACCINE 00:00:00 [facility] SARS-COV-2 COVID-19 2020-10-16 Completed Unive rsity of PEDRO/J&J VACCINE 00:00:00 [facility] Influenza Virus 2020-01-21 Completed Universit y of Vaccine 00:00:00 [facility] Influenza Virus 2020-01-21 Completed Universit y of Vaccine 00:00:00 [facility] Influenza Virus 2020-01-21 Completed Universit y of Vaccine 00:00:00 [facility] Influenza Virus 2020-01-21 Completed Universit y of Vaccine 00:00:00 [facility] Influenza Virus 2020-01-21 Completed Universit y of Vaccine 00:00:00 [facility] Influenza Virus 2020-01-21 Completed Universit y of Vaccine 00:00:00 [facility] Zoster Vaccine 2019-07-17 Completed University of Recombinant 00:00:00 [facility] Zoster Vaccine 2019-07-17 Completed University of Recombinant 00:00:00 [facility] Zoster Vaccine 2019-07-17 Completed University of Recombinant 00:00:00 [facility] Zoster Vaccine 2019-07-17 Completed University of Recombinant 00:00:00 [facility] Zoster Vaccine 2019-07-17 Completed University of Recombinant 00:00:00 [facility] Zoster Vaccine 2019-07-17 Completed University of Recombinant 00:00:00 [facility] Td 2019-03-29 Completed University of 00:00:00 [facility] Td 2019-03-29 Completed University of 00:00:00 [facility] Td 2019-03-29 Completed University of 00:00:00 [facility] Td 2019-03-29 Completed University of 00:00:00 [facility] Td 2019-03-29 Completed University of 00:00:00 [facility] Td 2019-03-29 Completed University of 00:00:00 [facility] Influenza Virus 2018-02-18 Completed Universit y of Vaccine 00:00:00 [facility] Pneumococcal 2018-02-18 Completed University o f Polysaccharide, 00:00:00 [place] Med ical PPSV23 (PNEUMOVAX) [place] Influenza Virus 2018-02-18 Completed Universit y of Vaccine 00:00:00 [facility] Pneumococcal 2018-02-18 Completed University o f Polysaccharide, 00:00:00 [place] [facility] ical PPSV23 (PNEUMOVAX) [place] Influenza Virus 2018-02-18 Completed Universit y of Vaccine 00:00:00 [facility] Pneumococcal 2018-02-18 Completed University o f Polysaccharide, 00:00:00 [place] [facility] ical PPSV23 (PNEUMOVAX) Branch Influenza Virus 2018-02-18 Completed Universit y of Vaccine 00:00:00 [facility] Pneumococcal 2018-02-18 Completed University o f Polysaccharide, 00:00:00 [place] [facility] ical PPSV23 (PNEUMOVAX) Branch Influenza Virus 2018-02-18 Completed Universit y of Vaccine 00:00:00 [facility] Pneumococcal 2018-02-18 Completed University o f Polysaccharide, 00:00:00 [place] [facility] ical PPSV23 (PNEUMOVAX) Branch Influenza Virus 2018-02-18 Completed Universit y of Vaccine 00:00:00 [facility] Pneumococcal 2018-02-18 Completed University o f Polysaccharide, 00:00:00 [place] [facility] ical PPSV23 (PNEUMOVAX) Branch Influenza Virus 2008-03-19 Completed Universit y of Vaccine 00:00:00 [facility] Pneumococcal 2008-03-19 Completed University o f Polysaccharide, 00:00:00 [place] [facility] ical PPSV23 (PNEUMOVAX) Branch Influenza Virus 2008-03-19 Completed Universit y of Vaccine 00:00:00 [facility] Pneumococcal 2008-03-19 Completed University o f Polysaccharide, 00:00:00 [facility] ical PPSV23 (PNEUMOVAX) Branch Influenza Virus 2008-03-19 Completed Universit y of Vaccine 00:00:00 [facility] Pneumococcal 2008-03-19 Completed University o f Polysaccharide, 00:00:00 [place] [facility] ical PPSV23 (PNEUMOVAX) Branch Influenza Virus 2008-03-19 Completed Universit y of Vaccine 00:00:00 [facility] Pneumococcal 2008-03-19 Completed University o f Polysaccharide, 00:00:00 [place] [facility] ical PPSV23 (PNEUMOVAX) Branch Influenza Virus 2008-03-19 Completed Universit y of Vaccine 00:00:00 [facility] Pneumococcal 2008-03-19 Completed University o f Polysaccharide, 00:00:00 [place] [facility] ical PPSV23 (PNEUMOVAX) Branch Influenza Virus 2008-03-19 Completed Universit y of Vaccine 00:00:00 [facility] Pneumococcal 2008-03-19 Completed University o f Polysaccharide, 00:00:00 [place] [facility] ical PPSV23 (PNEUMOVAX) [place] Vital Signs Vital Name Observation Time Observation Value Comments Source Systolic blood 2022-02-10 105 mm[Hg] University of pressure 16:35:00 [place] [facility] Diastolic blood 2022-02-10 57 mm[Hg] University o f pressure 16:35:00 [facility] [place] [facility] Heart rate 2022-02-10 65 /min University of 16:35:00 [facility] [place] [facility] Body temperature 2022-02-10 36.22 Sandy University of 16:35:00 [facility] [place] [facility] Respiratory rate 2022-02-10 18 /min University of 16:35:00 [facility] [place] [facility] Oxygen saturation 2022-02-10 98 /min University of in Arterial blood 16:35:00 [place] Medi uriel by Pulse oximetry Branch Body weight 2022-02-10 74.98 kg University of 08:16:00 [facility] [place] [facility] BMI 2022-02-10 25.89 kg/m2 University of 08:16:00 [facility] Body height 2022-02-10 170.2 cm Height before University of 01:18:00 Bilat BKA [facility] Systolic blood 2021-11-09 124 mm[Hg] University of pressure 23:00:00 [facility] Diastolic blood 2021-11-09 69 mm[Hg] University o f pressure 23:00:00 [place] [facility] Heart rate 2021-11-09 72 /min University of 23:00:00 [facility] [place] [facility] Respiratory rate 2021-11-09 25 /min University of 23:00:00 [facility] Oxygen saturation 2021-11-09 98 /min University of in Arterial blood 23:00:00 [facility] uriel by Pulse oximetry Branch Body temperature 2021-11-09 37.22 Sandy University of 20:28:39 [facility] Body height 2021-11-09 170.2 cm University of 20:16:00 [facility] [place] [facility] Body weight 2021-11-09 71.215 kg University of 20:16:00 [facility] BMI 2021-11-09 24.59 kg/m2 University of 20:16:00 [facility] [place] [facility] Systolic blood 2021-11-05 134 mm[Hg] University of pressure 10:00:00 [facility] [place] [facility] Diastolic blood 2021-11-05 78 mm[Hg] University o f pressure 10:00:00 [facility] [place] [facility] Heart rate 2021-11-05 81 /min University of 10:00:00 [facility] Body temperature 2021-11-05 36.28 Sandy University of 08:10:00 [facility] [place] [facility] Respiratory rate 2021-11-05 18 /min [facility] 08:00:00 [facility] Oxygen saturation 2021-11-05 99 /min [facility] Arterial blood 08:00:00 [facility] by Pulse oximetry [place] Body height 2021-11-05 170.2 cm [facility] 05:48:00 [facility] Body weight 2021-11-05 71.215 kg [facility] 05:48:00 [facility] BMI 2021-11-05 24.59 kg/m2 [facility] 05:48:00 [facility] Procedures Procedure Date / Time Performing Clinician Source Performed INSURANCE CORRESPONDENCE 2022-04-19 06:01:00 Doctor Unassigned, [facility] [place] [facility] [place] TRANSTHORACIC ECHO (TTE) 2022-02-10 13:16:00 Martha Rowe [facility] COMPLETE W/ CONTRAST Medical Bra nch PHOSPHORUS 2022-02-10 10:22:00 Martha Rowe [facility] MAGNESIUM 2022-02-10 10:22:00 Jae marilu [facility] TROPONIN I 2022-02-10 10:22:00 Martha Rowe [facility] COMP. METABOLIC PANEL 2022-02-10 10:22:00 Martha Rowe [facility] ([id number]) [facility] CBC WITH DIFF 2022-02-10 10:22:00 Martha Rowe [facility] CREATINE KINASE 2022-02-10 04:37:00 Martha Rowe [facility] URIC ACID 2022-02-10 04:37:00 Martha Rowe [facility] FERRITIN SERUM 2022-02-10 04:37:00 Martha Rowe [facility] FOLATE 2022-02-10 04:37:00 Jae marilu [facility] TROPONIN I 2022-02-10 04:37:00 Martha Rowe [facility] THYROID STIMULATING 2022-02-10 04:37:00 Martha Rowe [facility] HORMONE Medical Branch LIPID PANEL ([id number])(TOTAL 2022-02-10 04:37:00 Martha Rowe [facility] CHOLESTEROL, Medical Branch TRIGLYCERIDES, HDL) IRON PANEL 2022-02-10 04:37:00 Martha Rowe [facility] GLYCOSYLATED HEMOGLOBIN 2022-02-10 04:37:00 Martha Rowe [facility] (A1C) [facility] N-TERMINAL PRO-BNP 2022-02-10 04:37:00 Martha Rowe [facility] VITAMIN D, 25-OH 2022-02-10 04:37:00 Jae marilu [facility] COVID-19 (ID NOW RAPID 2022-02-10 04:37:00 Martha Rowe [facility] TESTING) [facility] B-TYPE NATRIURETIC FACTOR 2022-01-30 18:10:00 CH I [facility] ([facility] Center XR CHEST 1 VW 2021-11-09 21:07:00 Troy Ku Mckenzie [facility] POCT GLUCOSE (AUTOMATED) 2021-11-09 20:25:00 Troy Ku [facility] MAGNESIUM 2021-11-09 20:19:00 Troy Ku Mckenzie [facility] TROPONIN I 2021-11-09 20:19:00 Troy Ku Mckenzie [facility] COMP. METABOLIC PANEL 2021-11-09 20:19:00 Troy Ku [facility] ([id number]) [facility] CBC WITH DIFF 2021-11-09 20:19:00 Troy Ku Mckenzie [facility] N-TERMINAL PRO-BNP 2021-11-09 20:19:00 Troy Ku [facility] XR CHEST 1 VW 2021-11-05 06:38:35 Mihaela Martin [facility] [id number] 2020-08-11 00:00:00 ALDMO [facility] [id number] 2020-08-11 00:00:00 ALDMO [facility] [id number] 2020-08-11 00:00:00 ALDMO [facility] [id number] 2020-08-11 00:00:00 ALDMO [facility] Computed tomography 2017-10-24 00:00:00 BROOKE ALEXIS LUCY [place] Patient angiography of brain Medical Agustin ter CT angiography of chest 2017-10-23 00:00:00 KHAI WAHL V C [facility] Computed tomography of 2017-10-23 00:00:00 KHAI WAHL V [facility] Patient brain without radiopaque Medical Center contrast [...] Clinicians Facility Department ID 2021-06-17 Outpatient 3 [id number] ENCKY MALDONADO [id number] [facility] 10:24:03 [id number] [facility] 2021-06-17 Outpatient 3 [id number] ENCKY REF [id number] [facility] 10:22:04 [id number] [facility] 2021-03-22 Emergency [facility] [id number] Univers 15:25:20 ity of [facility] 2021-03-22 Emergency [facility] [id number] Univers 10:56:41 ity of [facility] 2021-03-21 Emergency [facility] [id number] Univers 18:15:08 ity of [facility] 2021-03-21 Emergency [facility] [id number] Univers 17:18:22 ity of [facility] 2021-03-21 Emergency [facility] [id number] Univers 12:58:19 ity of [facility] 2021-03-21 Emergency [facility] [id number] Univers 04:06:22 ity of [facility] 2021-03-21 Emergency [facility] [id number] Univers 00:12:27 ity of [facility] 2021-03-20 Emergency [facility] [id number] Univers 00:55:44 ity of [facility] 2021-03-19 Emergency [facility] [id number] Univers 17:28:47 ity of [facility] 2021-03-19 Emergency [facility] [id number] Univers 03:16:03 ity of [facility] 2021-03-18 Emergency [facility] [id number] Univers 13:56:50 ity of [facility] 2020-08-23 Inpatient HCACL FERNANDO [id number] [facility] 17:41:00 84 [facility] 2020-04-04 Inpatient Marko, HCAMN HCAMN [id number] [facility] 14:40:00 Edward 33 [facility] 2019-10-15 Inpatient RADHA Shah, HCAPM ENDO [id number] [facility] 15:30:00 Finn [address] [facility] 2022-04-19 2022-04-19 Orders Doctor JOSE [id number] Univers 00:00:00 00:00:00 Only Unassigned, [place] [id number] ity of [place] [facility] [id number] Juan J as [id number] [facility] 009 Branch 2022-02-11 2022-02-11 Transition CLAUDETTE HardingTanya [id number] Univers 00:00:00 00:00:00 of Care Josselyntoni DUQUE [id number] it y of [id number] [place] [id number] [facility] 403 Branch 2022-02-09 2022-02-10 Outpatient U JAE [facility] DARIUS [id number] Univers 19:53:00 13:45:00 ADMARILU ity of [facility] 2022-02-09 2022-02-10 Hospital Ana Maria Meza [facility] [id number] Univers 19:53:00 13:45:00 Encounter Martha Rowe [id number] ity of [place] [id number] [place] [facility] [id number] [facility] 081 Branch 2022-01-30 2022-01-30 [facility] [id number] 00:00:00 00:00:00 Requisitio Esme [facility] 2022-01-30 2022-01-30 Lab [facility] [id number] 00:00:00 00:00:00 Requisitiji [facility] 2021-11-09 2021-11-09 Emergency X HEBERT, K [facility] ERT [id number] Univers 15:15:00 18:32:00 ity of [facility] 2021-11-09 2021-11-09 Emergency Troy Ku [facility] [id number] Univers 15:15:00 18:32:00 Mckenzie PEREZ [id number] i ty of DANCHRISTINE [id number] [facility] [id number] [place] [id number] Branch 2021-11-05 2021-11-05 Emergency [facility] [id number] Univers 00:44:00 06:53:00 MIHAELA baugh [facility] 2021-11-05 2021-11-05 Emergency [facility] [id number] Univers 00:44:00 06:53:00 Mihaela PEREZ [id number] ity [facility] [id number] [facility] [id number] [facility] 084 Branch 2021-11-04 2021-11-04 Transition Feliciano CLAUDETTETanya [id number] Univers 00:00:00 00:00:00 of Jennifer [place] [id number] it y of [place] [id number] [facility] [id number] [facility] 403 Branch 2021-11-02 2021-11-03 Outpatient X BRAYDON [facility] DARIUS [id number] Univers 22:35:00 15:46:00 OC baugh [facility] 2021-11-02 2021-11-03 Emergency Curtis Xavier [facility] 1.2.840. [id number] Univers 22:35:00 15:46:00 Oc Bryson [id number] ity of [facility] [id number] [facility] [id number] [facility] 081 Branch 2021-11-02 2021-11-03 Outpatient X BRAYDON [facility] DARIUS [id number] Univers 22:35:00 15:46:00 OC baugh [facility] 2021-11-01 2021-11-01 Transition LATRICE Feliciano [id number] Univers 00:00:00 00:00:00 of Care Micaela [place] [id number] it y of [place] [id number] [facility] [id number] [facility] 403 Branch 2021-10-27 2021-10-29 [facility] [id number] Univers 17:41:00 14:03:00 ANA MARIA vashti [facility] 2021-10-27 2021-10-29 Emergency Jameson Mejia [facility] 1.2.840. [id number] Univers 17:41:00 14:03:00 Lizett Gerardo [id number] ity of [place] Meza [id number] [facility] [id number] [address] 2021-10-27 2021-10-29 [facility] [id number] Univers 17:41:00 14:03:00 ANA MARIA vashti [facility] 2021-10-21 2021-10-22 Emergency [facility] ERT [id number] Univers 20:24:00 04:18:00 JYOTI vashti [facility] 2021-10-21 2021-10-22 Emergency [facility] [id number] Univers 20:24:00 04:18:00 Jyoti PEREZ [id number] i Joy [id number] [facility] [id number] [facility] 084 Branch 2021-10-20 2021-10-20 Transition LATRICE Aleman [id number] Univers 00:00:00 00:00:00 of Care Rico DU[place] [id number] [place]y [id number] [id number] [facility] 403 Branch 2021-10-15 2021-10-18 Outpatient X DERRICK [facility] DARIUS [id number] Univers 16:42:00 13:52:00 ANA MARIA singhvashti [facility] 2021-10-15 2021-10-18 Emergency Jameson Mejia [facility] 1.2.840. [id number] Univers 16:42:00 13:52:00 Ana Maria Meza [id number] ity [id number] [id number] [facility] 081 Branch 2021-07-23 2021-07-23 Transition LATRICE Farooq [id number] Univers 00:00:00 00:00:00 of Care Marcella [place] [id number] i ty [id number] [id number] [address] 2021-07-19 2021-07-22 Inpatient [facility] DARIUS [id number] Univers 09:10:00 17:00:00 GEOFFREY baugh [facility] 2021-07-19 2021-07-22 [facility] Brandyn Dumont [facility] 1.2.840.1 14 [id number] Univers 09:10:00 17:00:00 Encounter Geoffrey Hill [facility] 350.1.13.10 it[place] of [place] [phone] [facility] 109 Branch (CLC) 2021-07-21 2021-07-21 Outpatient Wong_H VFP VFP [id number] Village 06:58:00 06:58:00 [id number] Family Practic e 2021-07-13 2021-07-13 Transition LATRICE Aleman 1.2.840.114 [id number] Univers 00:00:00 00:00:00 of Care Rico DUQUE 350.1.13.10 it[place] of [place] [phone] [place] [address] Branch 2021-06-28 2021-07-12 Inpatient X REBECCA [facility] DARIUS [id number] Univers 10:43:00 18:25:00 AMBIKA singhvashti [facility] 2021-06-28 2021-07-12 [facility] Jameson Mejia [facility] 1.2.840.1 14 [id number] Univers 10:43:00 18:25:00 Encounter Troy Ku 350.1.13.10 ity of Ambika Fernandez ADELIA 4.2.7.2.686 [facility] [phone] [facility] 081 Branch 2021-02-15 2021-02-15 [facility] [id number] Univers 15:00:00 15:00:00 ALECIA [facility] 2021-01-11 2021-01-11 Out[facility] [id number] Univers 10:45:00 10:45:00 GINA baugh o anuj [facility] 2021-01-05 2021-01-05 Transition Latrice Aleman 1.2.840.114 [id number] Univers 00:00:00 00:00:00 of Care Rico Duque 350.1.13.10 ity of [place] 4.2.7.2.686 [facility] [phone] [facility] 403 Branch 2021-01-01 2021-01-04 [facility] Wayne Can [facility] 1.2.840.1 14 [id number] Univers 14:18:00 18:10:00 Encounter Lizett Gerardo 350.1.13.10 it[place] of [place] [phone] [facility] 081 Branch 2021-01-01 2021-01-01 Orders Doctor JOSE 1.2.840.114 [id number] Univers 00:00:00 00:00:00 Only Unassigned, CAROLINA 350.1.13.10 ity of [place] [facility] 4.2.7.2.686 Juan J as [phone] [facility] 009 Branch 2020-12-17 2020-12-17 Transition Latrice Harding 1.2.840.114 [id number] Univers 00:00:00 00:00:00 of Care Josselyn Duque 350.1.13.10 it y of [place] 4.2.7.2.686 [facility] [phone] [facility] 403 Branch 2020-12-14 2020-12-16 Emergency Jyoti Cedeno S [facility] 1.2.840.1 14 [id number] Univers 17:50:00 17:46:00 Ana Maria Meza 350.1.13.10 ity of [place] 4.2.7.2.686 [facility] [phone] [facility] 081 Branch 2020-11-16 2020-11-16 Orders Doctor JOSE 1.2.840.114 [id number] Univers 00:00:00 00:00:00 Only Unassigned, CAROLINA 350.1.13.10 ity of [place] [facility] 4.2.7.2.686 [facility] [phone] [facility] 009 Branch 2020-10-30 2020-11-05 Inpatient EM [facility] [id number] [facility] 16:50:00 13:52:00 Fede 22960 [facility] 2020-10-31 2020-10-31 Outpatient ANNEL Carrera LABO [id number] [facility] 08:22:00 08:22:00 Fede 73 [facility] 2020-10-28 2020-10-28 Hospital Radiology [facility] 1.2.840.114 [id number] Univers 08:30:17 23:59:00 Encounter Sera 350.1.13.10 ity of [place] 4.2.7.2.686 [facility] [phone] [facility] 807 Branch 2020-10-28 2020-10-28 Hospital Radiology [facility] 1.2.840.114 [id number] 08:30:17 23:59:[address] 350.1.13.10 [place] 4.2.7.2.686 [place] [phone] [phone] 2020-10-28 Outpatient R RADIOLOGY [facility] [id number] Univers 00:00:00 00:00:00 ity of [facility] 2020-10-12 2020-10-12 [facility] 1.2.840.114 [id number] Univers 14:02:10 14:50:48 Visit Bryan Sera 350.1.13.10 i ty of [place] [phone] Ma dical [facility] 204 [facility] 2020-10-12 2020-10-12 Outpatient [facility] [id number] Univers 14:00:00 14:50:48 BRYAN ity [facility] 2020-10-12 2020-10-12 Outpatient [facility] [id number] Univers 14:00:00 14:00:00 [facility] 2020-10-06 2020-10-06 [facility] 1.2.840.114 [id number] Univers 10:43:51 11:59:29 Visit Gina Perez 350.1.13.10 ity [facility] [place] [phone] Ma dical [address] 2020-10-06 2020-10-06 Office [facility] 1.2.840.114 [id number] 10:43:51 11:59:29 Visit Gina Perez 350.1.13.10 [place] 4.2.7.2.686 Professio [phone] [address] 2020-10-06 2020-10-06 [facility] [id number] Univers 10:30:00 10:30:00 GINA baugh o f [facility] 2020-10-06 2020-10-06 Orders Doctor GARCIA 1.2.840.114 [id number] Univers 00:00:00 00:00:00 Only Unassigned, [place]INA 350.1.13.10 ity of [place] [facility] 4.2.7.2.686 Juan J as [phone] [address] 2020-09-28 2020-09-28 Emergency [facility] 1.2.840.114 [id number] Univers 17:28:00 21:08:00 Óscar Anuj Perez 350.1.13.10 ity of [place] 4.2.7.2.[address] [facility] [phone] [facility] 084 Branch 2020-09-28 2020-09-28 Transition Latrice French 1.2.840.114 [id number] Univers 00:00:00 00:00:00 of Care Gilda Duque 350.1.13.10 it y of [place] [phone] [facility] 403 Branch 2020-09-23 2020-09-26 [facility] Juan José Wayne [facility] 1.2.840.1 14 [id number] Univers 13:50:00 18:28:00 Encounter Ambika Fernandez 350.1.13.10 ity of [place] 4.2.7.2.686 [facility] [phone] [place] 481031 [place] 2020-09-23 2020-09-26 Inpatient X GABRIELEALEAJNDRA [facility] [id number] Univers 13:50:00 18:28:00 AMBIKA baugh [facility] 2020-09-22 2020-09-22 [facility] [id number] Univers 09:45:00 09:45:00 GINA palacio [facility] 2020-09-10 2020-09-10 Outpatient [facility] [id number] Univers 16:15:00 16:15:00 BRYAN baugh [facility] 2020-09-09 2020-09-09 Transition Latrice Aleman 1.2.840.114 [id number] Univers 00:00:00 00:00:00 of Care Rico Duque 350.1.13.10 ity of [place] [phone] [facility] 403 [place] 2020-09-08 2020-09-08 Outpatient [facility] [id number] Univers 08:30:00 08:30:00 GINA palacio [facility] 2020-09-02 2020-09-07 [facility] Jose Guy [facility] 1.2.840.114 [id number] Univers 16:46:00 18:45:00 Encounter [facility] 350. 1.13.10 ity of [place] 4.2.7.2.686 [place] Kaylyn Calvin [phone] [address] ([facility]) 2020-08-26 2020-08-26 Office [facility] 1.2.840.114 [id number] Univers 10:44:06 11:14:06 Visit [facility] 350.1.13.10 it y of [place] Me[place] [phone] [address] Office Building 2020-08-26 2020-08-26 Outpatient R THA GUNTER [facility] [id number] Univers 10:30:00 10:30:00 ity of [facility] 2020-08-25 2020-08-25 Outpatient R IVANA [facility] [id number] Univers 10:00:00 10:00:00 GINA palacio [facility] 2020-08-24 2020-08-24 Outpatient R YENI [facility] [id number] Univers 09:00:00 09:00:00 DEIDRE baugh [facility] 2020-08-21 2020-08-21 [facility] 1.2.840.114 [id number] Univers 08:43:52 09:13:46 Visit Gina Perez 350.1.13.10 ity of [place] [facility] [phone] [place] [address] Branch Building 2020-08-21 2020-08-21 Outpatient Tim HEATH [facility] [id number] Univers 08:30:00 08:30:00 GINA palacio [facility] 2020-08-10 2020-08-14 Inpatient ANNEL CareyCL INTE.02 [id number] [facility] 09:09:00 18:56:00 Johnie [place] [facility] 2020-08-11 2020-08-11 Out[facility] [id number] Univers 09:15:00 09:15:00 GINA palacio [facility] 2020-08-07 2020-08-07 Out[facility] [id number] Univers 10:00:00 10:00:00 GINA palacio [facility] 2020-07-27 2020-08-06 [facility] Jameson Mejia 1.2.840.1 14 [id number] Univers 12:13:00 17:15:00 Encounter Minnie Cardona 350.1.13.10 ity of [facility] 4.2.7.2.686 [place] Drew Noriega [phone] [facility] Johnie Skinner 090 [place] 2020-07-27 2020-08-06 Inpatient JOHNIE SKINNER [facility] [id number] Univers 12:13:00 17:15:00 ity of [facility] 2020-07-24 2020-07-24 Out[facility] [id number] Univers 13:00:00 13:00:00 GINA palacio [facility] 2020-07-21 2020-07-21 Transition Latrice Aleman 1.2.840.114 [id number] Univers 00:00:00 00:00:00 of Care Rico Duque 350.1.13.10 ity of [place] 4.2.7.2.686 Noe beckett [phone] [place] [address] Branch 2020-07-10 2020-07-20 [facility] Janeth Leal 1.2.84 0.114 [id number] Univers 19:24:00 21:51:00 Encounter Oc Bryson 350.1.13.10 ity of Janeth Leal [facility] 4.2.7.2.686 [place] Minnie Cardona [phone] Medical Lisa Marroquin [address] 2020-07-17 2020-07-17 Outpatient [facility] [id number] Univers 10:00:00 10:00:00 JOSE itvashti [facility] 2020-07-10 2020-07-10 Outpatient R IVANA [facility] [id number] Univers 08:45:00 08:45:00 GINA amauri o f [facility] 2020-06-15 2020-06-15 Telephone [facility] 1.2.513.678 [id number] Univers 00:00:00 00:00:00 Jose Perez 350.1.13.10 i ty of [place].2.[place] [facility] [phone] Ma dical nal 204 Branch Building 2020-06-11 2020-06-11 Office [facility] 1.2.840.114 [id number] Univers 13:43:55 13:58:55 Visit Pending Sale To [facility] 350.1.13.10 it y of [place].2.686 [place] [facility] [phone] Med ical [facility] 188 Branch 2020-06-11 2020-06-11 Outpatient R JANKI [facility] [id number] Univers 13:30:00 13:30:00 JOSE baugh [facility] 2020-06-03 2020-06-03 Transition LoveClaudette bennetttanya 1.2.840.114 [id number] Univers 00:00:00 00:00:00 of Care Rico Duque 350.1.13.10 ity of [place] [phone] [facility] 403 Branch 2020-05-29 2020-06-02 [facility] Jameson Mejia [facility] 1.2.840.1 14 [id number] Univers 09:12:00 16:02:00 Encounter Lizett Gerardo 350.1.13.10 ity of Martha [place] 4.2.7.2.686 [facility] [phone] [facility] 081 Branch 2020-05-29 2020-06-02 Inpatient X JAE [facility] [id number] Univers 09:12:00 16:02:00 MARTHA baugh [facility] 2020-05-29 2020-05-29 Outpatient R JANKI [facility] [id number] Univers 10:15:00 10:15:00 JOSE baugh [facility] 2020-04-23 2020-04-23 Office [facility] 1.2.840.114 [id number] Univers 13:48:18 14:03:18 Visit Pending Sale To [facility] 350.1.13.10 it y of [place] Center - [phone] [facility] 188 [place] 2020-04-23 2020-04-23 Outpatient [facility] [id number] Univers 13:30:00 13:30:00 JOSE baugh [facility] 2020-04-23 2020-04-23 Orders Doctor JOSE 1.2.840.114 [id number] Univers 00:00:00 00:00:00 Only Unassigned, CAROLINA 350.1.13.10 ity of [place] [facility] 4.2.7.2.686 Juan J as [phone] [facility] 009 [place] 2020-04-09 2020-04-09 Office [facility] 1.2.840.114 [id number] Univers 13:58:45 14:13:45 Visit Pending Sale To [facility] 350.1.13.10 it y of Dilip Cancer 4.2.7.2.686 [facility] - [phone] Med [address] 2020-04-09 2020-04-09 Outpatient [facility] [id number] Univers 14:00:00 14:00:00 JOSE vashti [facility] 2020-03-27 2020-03-27 Transition Latrice Aleman 1.2.840.114 [id number] Univers 00:00:00 00:00:00 of Care Rico Duque 350.1.13.10 it[place] of [place] [phone] [facility] 403 Branch 2020-03-15 2020-03-26 Hospital Jameson Mejia 1.2.840.1 14 [id number] Univers 23:48:00 18:02:00 Encounter Kandis Hough 350.1.13.10 ity of [place] [facility] 4.2.7.2.68 6 [place] [phone] [facility] 098 Branch 2020-03-18 2020-03-18 Anesthesia Caio Najera Nancy 1. 2.840.114 [id number] Univers 13:52:00 16:42:00 Stephanie Franks 350.1.13.10 ity of [facility] 4.2.7.2.686 [place] J as [phone] [facility] 103 Branch 2020-02-06 2020-02-06 Transition Latrice Aleman 1.2.840.114 [id number] Univers 00:00:00 00:00:00 of Care Rico Zelayay 350.1.13.10 it[place] of [place] [phone] [facility] 403 Branch 2020-02-03 2020-02-05 [facility] Óscar Hermosillo [facility] 1.2.8 40.114 [id number] Univers 16:55:00 20:40:00 Encounter Martha Rowe 350.1.13.10 ity of [place] 4.2.7.2.[place] [phone] [address] 2020-01-17 2020-01-17 Outpatient [facility] [id number] Univers 13:30:00 13:30:00 SENDIL ity of [facility] 2019-12-02 2019-12-02 Outpatient R [facility] [id number] Univers 15:00:00 15:00:00 ity of [facility] 2019-11-16 2019-11-21 [facility] Lopez Velazquez [facility] 1.2.840 .114 [id number] Univers 16:35:23 14:12:00 Encounter Heather Hermosillo 350.1.13.1 0 ity of [place] 4.2.[place].2.[place] [phone] [address] 2019-09-17 2019-09-18 [facility] 1.2.687.946 [id number] Univers 20:30:04 00:41:00 Valery Perez 350.1.13.10 ity of [place] 4.2.7.2.[place] [phone] [place] 481034 [place] 2019-09-17 2019-09-18 Emergency X ALFIE, [facility] ERT [id number] Univers 20:30:04 00:41:00 WAKILI ity [facility] 2019-09-05 2019-09-05 Outpatient R [facility] [id number] Univers 14:00:00 14:00:00 SENDIL ity [facility] 2019-09-05 2019-09-05 Telemedici [facility] 1.2.840.114 [id number] Univers 08:17:17 08:47:17 ne Visit Sendil Hannah Perez 350.1.13.10 ity of [place].2.[place] Profess[place] [phone] Ma dic[address] 2019-09-05 2019-09-05 Telephone [facility] 1.2.152.704 [id number] Univers 00:00:00 00:00:00 Sendil Hannah Perez 350.1.13.10 ity of [place] 4.[place] [phone] Ma dicnj nal [address] [place] [address] 2019-09-03 2019-09-03 Outpatient R ANNA [facility] [id number] Univers 10:30:00 10:30:00 SENDIL ity [facility] 2019-08-20 2019-08-20 Telephone [facility] 1.2.496.620 [id number] Univers 00:00:00 00:00:00 Nika SHAW 350.1.13.10 ity of [place].2.[place] [facility] [phone] Ma dical 390 [place] 2019-08-19 2019-08-19 Refill Nancy Lee 1.2.840.114 [id number] Univers 00:00:00 00:00:00 Lola Figueroa 350.1.13.10 it y of Hospital 4.2.7.2.686 Juan J as [phone] [facility] 090 [place] 2019-08-16 2019-08-16 Refill Nanyc Lee 1.2.840.114 [id number] Univers 00:00:00 00:00:00 Lola Carolina 350.1.13.10 it y of [facility] 4.2.7.2.686 Juan J as [phone] [facility] 090 Branch 2019-08-15 2019-08-15 Emergency Luis, [facility] 1.2.840.114 [id number] Univers 11:58:21 15:28:00 Demarcus Perez 350.1.13.10 i ty of [place] 4.2.7.2.686 [place] [phone] [facility] 084 Branch 2019-08-15 2019-08-15 Emergency X LUIS, [facility] ERT [id number] Univers 11:58:21 15:28:00 DEMARCUS ity [facility] 2019-08-15 2019-08-15 Case AnnaJOSE 1.2.840.114 [id number] Univers 00:00:00 00:00:00 Management Ninfa FIGUEROA 350.1.13.10 ity [facility] 4.2.7.2.686 Juan J as [phone] [facility] 008 Branch 2019-08-15 2019-08-15 Telephone Anna [facility] 1.2.542.414 [id number] Univers 00:00:00 00:00:00 Ninfa Perez 350.1.13.10 ity of [place].2.7.2.[place] [facility] [phone] [facility] 059 [facility] 2019-08-12 2019-08-12 Transition Latrice Ramirez 1.2.840.114 [id number] Univers 00:00:00 00:00:00 of Care Joan George 350.1.13.10 it[place] of [place].2.[place].2.[place] [phone] [facility] 403 Branch 2019-08-06 2019-08-09 Emergency Wayne Can [facility] 1.2.840. 114 [id number] Univers 14:06:47 15:19:00 Lizett Gerardo 350.1.13.10 ity of [place] 4.2.7.2.686 [place] [phone] [facility] 081 Branch 2019-08-06 2019-08-09 Outpatient X HUMAIRA, [facility] [id number] Univers 14:06:47 15:19:00 LIZETT ity of [facility] 2019-08-06 2019-08-06 Outpatient R TRAVIS, [facility] [id number] Univers 13:30:00 13:30:00 RICHMOND singhy o f [facility] 2019-08-06 2019-08-06 Outpatient R TRAVIS, [facility] [id number] Univers 11:00:00 11:00:00 RICHMOND singhy o f [facility] 2019-08-06 2019-08-06 Outpatient R TRAVIS, [facility] [id number] Univers 11:00:00 11:00:00 JUNIEJULIANN baugh o [facility] 2019-08-06 2019-08-06 Orders Doctor JOSE 1.2.840.114 [id number] Univers 00:00:00 00:00:00 Only Unassigned, [place] 350.1.13.10 ity of [place] [facility] 4.2.7.2.686 Juan J as [phone] [facility] 009 Branch 2019-07-19 2019-07-19 Transition Latrice French 1.2.840.114 [id number] Univers 00:00:00 00:00:00 of Care Gilda Duque 350.1.13.10 it y of [place] [phone] [facility] 403 Branch 2019-07-17 2019-07-18 Emergency Valery Carrillo S Nancy 1.2.840 .114 [id number] Univers 21:36:10 21:05:00 Kendra Vaca [place] 350.1.13.1 0 ity of Hospital 4.2.7.2.686 Juan J as [phone] [facility] 090 Branch 2019-07-17 2019-07-18 Outpatient X SUZANNE-[facility]IP [facility] [id number] Univers 21:36:10 21:05:00 NOLA TAREQ ity of [facility] 2019-07-03 2019-07-03 Transition Latrice French 1.2.840.114 [id number] Univers 00:00:00 00:00:00 of Care Gilda Duque 350.1.13.10 it y of [place] [phone] [facility] 403 Branch 2019-07-01 2019-07-01 Transition Latrice French 1.2.840.114 [id number] Univers 00:00:00 00:00:00 of Care Gilda Duque 350.1.13.10 it y of [place].2.[place] [phone] [facility] 403 Branch 2019-06-27 2019-06-27 Transition Latrice French 1.2.840.114 [id number] Univers 00:00:00 00:00:00 of Care Gilda Duque 350.1.13.10 it y of [place] 4[place]2.7.2.[place] [phone] [facility] 403 [place] 2019-06-24 2019-06-26 [facility] [id number] Univers 14:51:01 18:37:00 MICHAEL ity of [facility] 2019-06-24 2019-06-26 Hospital Janeth Leal 1.2.84 0.114 [id number] Univers 14:51:01 18:37:00 Encounter Michael Shirley 350.1.1 3.10 ity of [facility] 4.2.7.2.686 Juan J as [phone] [facility] 090 Branch 2019-02-06 2019-02-06 Telephone JOSE Bhatt 1.2.840.114 [id number] Univers 00:00:00 00:00:00 Cortney FGIUEROA 350.1.13.10 i ty of [facility] 4.2.7.2.686 Juan J as [phone] [facility] 008 Branch 2019-02-05 2019-02-05 Emergency [facility] 1.2.773.967 [id number] Univers 17:30:29 21:52:00 Jyoti Perez 350.1.13.10 i ty of [place] 4.2.[place].2.[place] [phone] [place] 481034 Branch 2019-01-30 2019-01-30 Transition Latrice Quevedo 1.2.840.114 [id number] Univers 00:00:00 00:00:00 of Care Rhonda Duque 350.1.13.10 it y of [place] [phone] [facility] 403 Branch 2019-01-24 2019-01-29 [facility] Wayne Can 1.2.840.1 14 [id number] Univers 16:01:37 14:55:00 Encounter Dennis Finley 350.1.13.10 ity of [facility] 4.2.7.2.686 Juan J as [phone] [place] 481039 Branch 2019-01-22 2019-01-22 Transition Claudette Quevedotanya 1.2.840.114 [id number] Univers 00:00:00 00:00:00 of Care Rhonda Duque 350.1.13.10 it y of [place]2.[place] [phone] [facility] 403 Branch 2019-01-16 2019-01-19 [facility] Carlos Allen 1.2.840.11 [id number] Univers 23:52:03 14:36:00 Encounter Jae Martha Figueroa 350.1.13.10 ity of Most Maliajuanjomargareth [facility] 4.2.7.2.686 [place] [phone] [place] [address] Branch 2017-10-23 2017-10-27 Discharged 1 [facility] [id number] 17:29:00 16:54:00 Inpatient ALEXIS 90 [place] [facility] 2017-04-03 2017-04-04 [id number] 23:17:00 03:53:00 Emergency LAIRD 56 [place] Room [facility] 2017-03-05 2017-03-09 Discharged ER [facility] [id number] 06:54:00 10:58:00 Inpatient NICHELLE 46 [place] (obs) Patient [facility] 2017-01-04 2017-01-05 Discharged [facility] [id number] 10:33:00 18:56:00 Inpatient [address] [place]jit ([facility]) [facility] Orders Doctor JOSE [id number] [facility] 00:00:00 00:00:00 Only Unassigned, [place] [id number] [facility] [place] [facility] [id number] Juan J as [phone] [facility] uriel 00[address] Results Test Description Test Time Test Comments Results Result Comments Source Transthoracic echo (TTE) 2022-02-10 17:43:07 Test Item Value Reference Range Interpretation Comme nts Height (test code = 5425081266) in Weight (test code = 9728520235) lbs Systolic BP (test code = 6992925356) mmHg Diastolic BP (test code = 1549270884) mmHg Heart Rate (test code = 7858416234) bpm BSA (test code = 3598121291) 1.86 m2 Ao root diam (test code = 4873373842) 3.10 cm Aortic root (test code = 4854660978) 3.1 cm Ao root annulus (test code = 3.1 cm 6629250437) LVOT diameter (test code = 1.83 cm 4318804940) LVOT area (test code = 6190183004) 2.60 cm2 LVIDD (test code = 5338632822) 4.80 cm Left Ventricular End Diastolic Volume 107.5 mL by Teichholz Method (test code = 0009218) IVS (test code = 6863042944) 1.35 cm Interventricular Septum Diastolic 1.35 cm Thickness by 2D (test code = 5930800) LVPWD (test code = 2476434040) 1.35 cm PW (test code = 5594007788) 1.35 cm 0.6-1.1 EF(Teich) (test code = 9539748515) 30.10 % LVIDS (test code = 9107468216) 4.10 cm Left Ventricular End Systolic Volume 75.1 mL by Teichholz Method (test code = 3735034) FS (test code = 4397362398) 14 % EF - 2D (test code = 32329445) 30.10 % LA size (test code = 7815663406) 4.1 cm TR Peak Haile (test code = 3553576077) 232.4 cm/s Triscuspid Valve Regurgitation Peak mmHg Gradient (test code = 4159258798) LAV(MOD-sp4) (test code = 6818741047) 103.10 mL E wave decelartion time (test code = 0.15 s 6743224164) MV stenosis pressure 1/2 time (test 44.6 ms code = 8794543716) MV Peak E Haile (test code = 110.2 cm/s 7936499000) MV Peak A Haile (test code = 28.7 cm/s 4217040591) E/A ratio (test code = 4887777841) ratio MR max PG (test code = 7373649322) 78.70 mm[Hg] MR max haile (test code = 2968014313) 443.40 cm/s Mr max haile (test code = 5871154187) 443.4 m/s MV Prop V (test code = 9838810086) 45.00 cm/s MV E/e' septal (test code = 9.2 cm/s 8783250465) Tapse (test code = 6016208042) 1.53 cm LVOT stroke volume (test code = 41.70 cm3 3521987430) LVOT peak haile (test code = 87.2 cm/s 3912708605) LVOT mn grad (test code = 0213255650) mmHg AV LVOT peak gradient (test code = mmHg 4152718130) LVOT peak VTI (test code = 15.8 cm 9708778167) LV V1 mean (test code = 2721225757) 51.30 cm/s Aortic valve mean velocity (test code 78.3 cm/s = 2876063921) Ao peak haile (test code = 3779781302) 111.8 cm/s Ao VTI (test code = 5963290140) 21.5 cm AV area by cont VTI (test code = 1.9 cm2 6539479745) AV area peak haile (test code = 2.1 cm2 9528030970) Ao max PG (test code = 3832171078) 5.00 mm[Hg] AV peak gradient (test code = mmHg 8039652124) AV valve area (test code = 1.94 cm2 9696656671) AV mean gradient (test code = mmHg 5910463942) Radiology Study observation (narrative) (test code = 41767-7) DIANE (test code = DIANE) Table formatting [...] and apex.All other segments are normal. [facility] [id number] 12:01:08 Test Item Value Reference Interpretation Comments Range TROPONIN I (test 0.021 ng/mL See_Comment [Automated code = 8384129261) message] The system which generated this result [...] biotin. Lab Interpretation Normal (test code = 05599-7) [facility]2022-09-22 11:50:23 Test Item Value Reference Range Interpretation Comments MAGNESIUM (test code = 0631464934) 1.7 mg/dL 1.7-2.4 Lab Interpretation (test code = Normal 92668-4) [facility]OLIC PAN[facility] (71395)2022-02-10 11:50:22 Test Item Value Reference Range Interpretation Comments NA (test code = 138 mmol/L 135-145 0529248519) K (test code = 3.9 mmol/L 3.5-5 1899902085) CL (test code = 108 mmol/L 98-108 2614919269) CO2 TOTAL (test code = 24 mmol/L 23-31 1921829615) AGAP (test code = 2-16 9683202308) BUN (test code = 19 mg/dL 7-23 1763669333) GLUCOSE (test code = 117 mg/dL 70-110 H 3186749909) CREATININE (test code = 0.91 mg/dL 0.6-1.25 0494147551) TOTAL BILI (test code = 1.0 mg/dL 0.1-1.3 5427334669) CALCIUM (test code = 8.5 mg/dL 8.6-10.6 L 1788010990) T PROTEIN (test code = 6.4 g/dL 6.3-8.2 7372051212) ALBUMIN (test code = 3.4 g/dL 3.5-5 L 6964101160) ALK PHOS (test code = 177 U/L 34-122 H 7988765308) ALTv (test code = 24 U/L 5-50 1742-6) AST(SGOT) (test code = 38 U/L 13-40 7214876216) eGFR (test code = mL/min/1.73m2 2708855465) DIANE (test code = DIANE) Association of [...] tests). Lab Interpretation Abnormal (test code = 28286-9) [facility]2022-09-22 11:50:22 Test Item Value Reference Range Interpretation Comments PHOSPHORUS (test code = 6293962988) 5.1 mg/dL 2.5-5 H Lab Interpretation (test code = Abnormal 29430-9) [facility] WITH [id number] 11:19:02 Test Item Value Reference Range Interpretation [...] RDW-SD (test code = 48.0 fL 38.5-51.6 66320-3) RDW-CV (test code = 14.2 % 12.1-15.4 788-0) PLT (test code = See_Comment [Automated 777-3) message] The sy stem which generated this result transmitted reference range : 150 - 328 10*3/ ?L. The reference r batsheva was not used to interpret this result as normal/abnormal . MPV (test code = 10.2 fL 9.8-13 59626-5) NRBC/100 WBC (test See_Comment [Automat ed code = 0011025794) message] The system which generated this result transmitted reference range : 0.0 - 10.0 /100 WBCs. The refer ence range was not u sed to interpret th is result as normal/abnormal . NRBC x10^3 (test code See_Comment [Auto mated = 4145277260) message] The s ystem which generated this result transmitted reference range : 10*3/?L. The reference range was not used to interpret this result as normal/abnormal . GRAN MAT (NEUT) % 68.5 % (test code = 770-8) IMM GRAN % (test code 0.40 % = 0734287815) LYMPH % (test code = 19.0 % 736-9) MONO % (test code = 8.3 % 5905-5) EOS % (test code = 3.4 % 713-8) BASO % (test code = 0.4 % 706-2) GRAN MAT x10^3(ANC) 3.65 10*3/uL 1.99-6.95 (test code = 0341385039) IMM GRAN x10^3 (test 0-0.06 code = 0063280487) LYMPH x10^3 (test code 1.01 10*3/uL 1.09-3.23 L = 731-0) MONO x10^3 (test code 0.44 10*3/uL 0.36-1.02 = 742-7) EOS x10^3 (test code = 0.18 10*3/uL 0.06-0.53 711-2) BASO x10^3 (test code 0.01-0.09 = 704-7) Lab Interpretation Abnormal (test code = 12487-9) [facility] Nat[facility] (BNP)2022-01-30 23:33:12 Test Item Value Reference Range Interpretation Comments BNP (test code = 85186-8) 443 pg/mL 0-100 H DIANE (test code = DIANE) Photocopying Machine Operator ID - ADRY Lab Interpretation (test Abnormal code = 79395-7) [facility]30 23:33:12 Test Item Value Reference Range Interpretation Comments BNP (test code = 16945-5) 443 pg/mL 0-100 H DIANE (test code = DIANE) Photocopying Machine Operator ID - ADRY Lab Interpretation (test Abnormal code = 67632-2) [facility]2022-01-30 23:33:12 Test Item Value Reference Range Interpretation Comments BNP (test code = 26617-1) 443 pg/mL 0-100 H DIANE (test code = DIANE) Photocopying Machine Operator ID - ADRY Lab Interpretation (test Abnormal code = 39289-5) [facility]2022-01-30 23:33:12 Test Item Value Reference Range Interpretation Comments BNP (test code = 25398-1) 443 pg/mL 0-100 H DIANE (test code = DIANE) Photocopying Machine Operator ID - ADRY Lab Interpretation (test Abnormal code = 63754-8) [facility]2022-01-30 23:33:12 Test Item Value Reference Range Interpretation Comments BNP (test code = 89133-1) 443 pg/mL 0-100 H DIANE (test code = DIANE) Photocopying Machine Operator ID - ADRY Lab Interpretation (test Abnormal code = 76095-6) [facility]2022-01-30 23:33:12 Test Item Value Reference Range Interpretation Comments BNP (test code = 06363-6) 443 pg/mL 0-100 H DIANE (test code = DIANE) Photocopying Machine Operator ID - ADRY Lab Interpretation (test Abnormal code = 90545-1) [facility]2022-01-30 23:33:12 Test Item Value Reference Range Interpretation Comments BNP (test code = 75861-0) 443 pg/mL 0-100 H DIANE (test code = DIANE) Photocopying Machine Operator ID - ADRY Lab Interpretation (test Abnormal code = 08734-6) [facility]2022-01-30 23:33:12 Test Item Value Reference Range Interpretation Comments BNP (test code = 33548-4) 443 pg/mL 0-100 H DIANE (test code = DIANE) Photocopying Machine Operator ID - ADRY Lab Interpretation (test Abnormal code = 42090-9) [facility]2022-01-30 23:33:12 Test Item Value Reference Range Interpretation Comments BNP (test code = 18130-9) 443 pg/mL 0-100 H DIANE (test code = DIANE) Photocopying Machine Operator ID - ADRY Lab Interpretation (test Abnormal code = 68527-1) [facility]2022-01-30 23:33:12 Test Item Value Reference Range Interpretation Comments BNP (test code = 68749-9) 443 pg/mL 0-100 H DIANE (test code = DIANE) Photocopying Machine Operator ID - ADRY Lab Interpretation (test Abnormal code = 53560-5) [facility]2022-01-30 23:33:12 Test Item Value Reference Range Interpretation Comments BNP (test code = 72737-7) 443 pg/mL 0-100 H DIANE (test code = DIANE) Photocopying Machine Operator ID - ADRY Lab Interpretation (test Abnormal code = 71700-0) [facility]2022-01-30 23:33:12 Test Item Value Reference Range Interpretation Comments BNP (test code = 51823-7) 443 pg/mL 0-100 H DIANE (test code = DIANE) Photocopying Machine Operator ID - ADRY Lab Interpretation (test Abnormal code = 22135-3) [facility]2022-01-30 23:33:12 Test Item Value Reference Range Interpretation Comments BNP (test code = 83307-7) 443 pg/mL 0-100 H DIANE (test code = DIANE) Photocopying Machine Operator ID - ADRY Lab Interpretation (test Abnormal code = 02836-5) [facility]2022-01-30 23:33:12 Test Item Value Reference Range Interpretation Comments BNP (test code = 27429-8) 443 pg/mL 0-100 H DIANE (test code = DIANE) Photocopying Machine Operator ID - ADRY Lab Interpretation (test Abnormal code = 00841-2) [facility]2022-01-30 23:33:12 Test Item Value Reference Range Interpretation Comments BNP (test code = 48941-5) 443 pg/mL 0-100 H DIANE (test code = DIANE) Photocopying Machine Operator ID - ADRY Lab Interpretation (test Abnormal code = 09827-0) [facility]2022-01-30 23:33:12 Test Item Value Reference Range Interpretation Comments BNP (test code = 80961-9) 443 pg/mL 0-100 H DIANE (test code = DIANE) Photocopying Machine Operator ID - ADRY Lab Interpretation (test Abnormal code = 69288-4) [facility] (BNP)2022-01-30 23:33:12 Test Item Value Reference Range Interpretation Comments B-TYPE NATRIURETIC PEPTIDE (BEAKER) 443 pg/mL 0-100 H (test code = 700) Photocopying Machine Operator TC ONEILL [id number] 20:57:59 Test Item Value Reference Interpretation Comments Range TROPONIN I (test 0.017 ng/mL See_Comment [Automated code = 7198073601) message] The system which generated this result [...] biotin. Lab Interpretation Normal (test code = 58596-7) [facility] [id number] 20:54:59 Test Item Value Reference Range Interpretation Comments NT-proBNP (test code 6490 pg/mL See_Comment H [Autom ated = 2930518427) message] The system which generated this result transmitted reference range : <=125. The reference range was not used to interpret this result as normal/abnormal . DIANE (test code = DIANE) Biotin has been reported to cause a negative bias, interpret results relative to patient's use of biotin. Lab Interpretation Abnormal (test code = 46975-2) [facility]2022-[facility]-21 20:46:35 Test Item Value Reference Range Interpretation Comments MAGNESIUM (test code = 9649833476) 1.5 mg/dL 1.7-2.4 L Lab Interpretation (test code = Abnormal 38854-7) [facility]OL[facility] PAN[facility] (41828)2021-11-09 20:46:34 Test Item Value Reference Range Interpretation Comments NA (test code = 140 mmol/L 135-145 2283276081) K (test code = 3.9 mmol/L 3.5-5.0 8772716826) CL (test code = 111 mmol/L 98-108 H 7643395279) CO2 TOTAL (test code = 16 mmol/L 23-31 L 0203788684) AGAP (test code = 2-16 9503139674) BUN (test code = 14 mg/dL 7-23 4172057086) GLUCOSE (test code = 189 mg/dL 70-110 H 2646846256) CREATININE (test code = 0.66 mg/dL 0.60-1.25 1282687039) TOTAL BILI (test code = 0.8 mg/dL 0.1-1.9 8933621024) CALCIUM (test code = 8.3 mg/dL 8.6-10.6 L 8514809912) T PROTEIN (test code = 6.5 g/dL 6.3-8.2 5959329008) ALBUMIN (test code = 3.3 g/dL 3.5-5.0 L 7842427091) ALK PHOS (test code = 136 U/L 34-122 H 1378117936) ALTv (test code = 18 U/L 5-50 1742-6) AST(SGOT) (test code = 26 U/L 13-40 6054380419) eGFR (test code = mL/min/1.73m2 7036156082) DIANE (test code = DIANE) Association of [...] tests). Lab Interpretation Abnormal (test code = 59536-5) [facility] WITH [id number] 20:33:30 Test Item Value Reference Range Interpretation Comments WBC (test code = See_Comment [Automated 2590-2) message] The sy stem which generated this result transmitted reference range : 4.20 - 10.70 10*3/?L. The reference range was not used to interpret this result as normal/abnormal . RBC (test code = See_Comment [Automated 049-8) message] The sy stem which generated this [...] RDW-SD (test code = 45.4 fL 38.5-51.6 30480-6) RDW-CV (test code = 14.2 % 12.1-15.4 788-0) PLT (test code = See_Comment [Automated 777-3) message] The sy stem which generated this result transmitted reference range : 150 - 328 10*3/ ?L. The reference r batsheva was not used to interpret this result as normal/abnormal . MPV (test code = 9.8 fL 9.8-13.0 38383-3) NRBC/100 WBC (test See_Comment [Automat ed code = 6855469742) message] The system which generated this result transmitted reference range : 0.0 - 10.0 /100 WBCs. The refer ence range was not u sed to interpret th is result as normal/abnormal . NRBC x10^3 (test code <0.01 See_Comment [Auto mated = 4480320582) message] The s ystem which generated this result transmitted reference range : 10*3/?L. The reference range was not used to interpret this result as normal/abnormal . GRAN MAT (NEUT) % 62.3 % (test code = 770-8) IMM GRAN % (test code 0.80 % = 7994893385) LYMPH % (test code = 25.1 % 736-9) MONO % (test code = 6.7 % 5905-5) EOS % (test code = 4.7 % 713-8) BASO % (test code = 0.4 % 706-2) GRAN MAT x10^3(ANC) 4.76 10*3/uL 1.99-6.95 (test code = 9791265849) IMM GRAN x10^3 (test 0.06 10*3/uL 0.00-0.06 code = 5217870197) LYMPH x10^3 (test code 1.92 10*3/uL 1.09-3.23 = 731-0) MONO x10^3 (test code 0.51 10*3/uL 0.36-1.02 = 742-7) EOS x10^3 (test code = 0.36 10*3/uL 0.06-0.53 711-2) BASO x10^3 (test code 0.03 10*3/uL 0.01-0.09 = 704-7) Lab Interpretation Abnormal (test code = 15358-1) [facility])2021-11-09 20:27:39 Test Item Value Reference Range Interpretation Comments POCT GLU (test code = 5043065668) 190 mg/dL 70-110 H Lab Interpretation (test code = Abnormal 48147-2) [facility] [id number] 11:52:00 Test Item Value Reference Range Interpretation Comments GLUCOSE BEDSIDE TESTING (test code = 92 mg/dL 70-110 N GLUBED) GLUCOSE BEDSIDE [id number] 08:05:00 Test Item Value Reference Range Interpretation Comments GLUCOSE BEDSIDE TESTING (test code = 62 mg/dL 70-110 L GLUBED) GLUCOSE BEDSIDE [id number] 20:40:00 Test Item Value Reference Range Interpretation Comments GLUCOSE BEDSIDE TESTING (test code 105 mg/dL 70-110 N = GLUBED) GLUCOSE BEDSIDE [id number] 17:02:00 Test Item Value Reference Range Interpretation Comments GLUCOSE BEDSIDE TESTING (test code 128 mg/dL 70-110 H = GLUBED) GLUCOSE BEDSIDE [id number] 16:37:00 Test Item Value Reference Range Interpretation Comments GLUCOSE BEDSIDE TESTING (test code 105 mg/dL 70-110 N = GLUBED) GLUCOSE BEDSIDE [id number] 08:17:00 Test Item Value Reference Range Interpretation Comments GLUCOSE BEDSIDE TESTING (test code = 88 mg/dL 70-110 N GLUBED) GLUCOSE BEDSIDE [id number] 19:45:00 Test Item Value Reference Range Interpretation Comments GLUCOSE BEDSIDE TESTING (test code 115 mg/dL 70-110 H = GLUBED) GLUCOSE BEDSIDE [id number] 18:13:00 Test Item Value Reference Range Interpretation Comments GLUCOSE BEDSIDE TESTING (test code = 74 mg/dL 70-110 N GLUBED) GLUCOSE BEDSIDE [id number] 17:29:00 Test Item Value Reference Range Interpretation Comments GLUCOSE BEDSIDE TESTING (test code = 44 mg/dL 70-110 LL GLUBED) GLUCOSE BEDSIDE [id number] 12:26:00 Test Item Value Reference Range Interpretation Comments GLUCOSE BEDSIDE TESTING (test code = 96 mg/dL 70-110 N GLUBED) GLUCOSE BEDSIDE [id number] 08:21:00 Test Item Value Reference Range Interpretation Comments GLUCOSE BEDSIDE TESTING (test code = 77 mg/dL 70-110 N GLUBED) GLUCOSE BEDSIDE [id number] 20:12:00 Test Item Value Reference Range Interpretation Comments GLUCOSE BEDSIDE TESTING (test code = 91 mg/dL 70-110 N GLUBED) GLUCOSE BEDSIDE [id number] 16:42:00 Test Item Value Reference Range Interpretation Comments GLUCOSE BEDSIDE TESTING (test code 106 mg/dL 70-110 N = GLUBED) GLUCOSE BEDSIDE [id number] 11:49:00 Test Item Value Reference Range Interpretation Comments GLUCOSE BEDSIDE TESTING (test code = 89 mg/dL 70-110 N GLUBED) GLUCOSE BEDSIDE [id number] 08:22:00 Test Item Value Reference Range Interpretation Comments GLUCOSE BEDSIDE TESTING (test code = 68 mg/dL 70-110 L GLUBED) GLUCOSE BEDSIDE [id number] 20:05:00 Test Item Value Reference Range Interpretation Comments GLUCOSE BEDSIDE TESTING (test code 137 mg/dL 70-110 H = GLUBED) GLUCOSE BEDSIDE [id number] 16:42:00 Test Item Value Reference Range Interpretation Comments GLUCOSE BEDSIDE TESTING (test code = 98 mg/dL 70-110 N GLUBED) GLUCOSE BEDSIDE [id number] 11:13:00 Test Item Value Reference Range Interpretation Comments GLUCOSE BEDSIDE TESTING (test code 118 mg/dL 70-110 H = GLUBED) GLUCOSE BEDSIDE [id number] 07:37:00 Test Item Value Reference Range Interpretation Comments GLUCOSE BEDSIDE TESTING (test code 140 mg/dL 70-110 H = GLUBED) COMPREHENSIVE METABOLIC [id number] 06:34:00 Test Item Value Reference Range Interpretation [...] TOTAL (test code = ALKP) CBC W/AUTO [id number] 06:25:00 Test Item Value Reference Range Interpretation [...] DIFF/SCN CRITERIA = MDIFF) - CT ABDOMEN W/[id number] 03:09:00 [facility] 1960 Sex: M Name: FAITH VANCE [facility] : 1960 Age/S: 60 / M [address] Unit #: [id number] Loc: [place] [address] Phys: Fede Carrera DO Acct: [id number] Dis Date: Status: ADM IN PHONE #: [phone] Exam Date: 10/31/20201919 FAX #: Reason: NAUSEA, VOMITING, DIARRHEA EXAMS: CPT: [id number] CT ABDOMEN W/CONTRAST 68876 EXAM: - CT ABDOMEN W/CONTRAST LOCATION: H61 CLINICAL HISTORY/INDICATION: NAUSEA, VOMITING, DIARRHEA COMPARISON: KUB 10/31/2020. CT 08/23/2020. TECHNIQUE: Axial CT images of the abdomen were obtained from with IV contrast administration. Coronal and sagittal reformations were reconstructed from the axial data set. Postcontrast images were acquired in the portal venous phase This examination was performed according to our departmental dose optimization program, which includesautomated exposure control, adjustment of the mA and/or kV according to patient size, and/or use of iterative reconstruction technique. FINDINGS: LOWER THORAX: Moderate bilateral pleural effusions withcompressive atelectasis in bilateral lower lobes. Pacemaker leads [...] Hospital : 1960 Age/S: 60 / M [address] Unit #: [id number] Loc: [place] [address] Phys: Fede Preston DO Acct: [id number] Dis Date: Status: ADM IN PHONE #: [phone] Exam Date: 10/31/20201919 FAX #: Reason: NAUSEA, VOMITING, DIARRHEA EXAMS: CPT: [id number] CT ABDOMEN W/CONTRAST 33724 <Continued> small bowel wall thickening. The appendix [...] (308) t.KATHRYNR.TH15 Orig Print D/T: S: 11/01/2020 (206) PAGE 2 Signed ReportGLUCOSE BEDSIDE [id number] 21:34:00 Test Item Value Reference Range Interpretation Comments GLUCOSE BEDSIDE TESTING (test code 161 mg/dL 70-110 H = GLUBED) GLUCOSE BEDSIDE [id number] 17:32:00 Test Item Value Reference Range Interpretation Comments GLUCOSE BEDSIDE TESTING (test code 136 mg/dL 70-110 H = GLUBED) - XR ABDOMEN 1 [id number] 12:44:00 [facility] 1960 Sex: M Name: FAITH VANCE [facility] : 1960 Age/S: 60 / M [address] Unit #: [id number] Loc: [place] [address] Phys: Fede Carrera DO Acct: [id number] Dis Date: Status: ADM IN PHONE #: [phone] Exam Date: 10/31/2020 1227 FAX #: Reason: Abdominal pain in the lower qudarants EXAMS: CP T: [id number] XR ABDOMEN 1 V 70702 Fluoro Time: DAP (Gy m2): Air Kerma [...] DO PAGE1 Signed Report Name: FAITH VANCE [facility] : 1960 Age/S: 60 / M [address] Unit #: [id number] Loc: [place] [address] Phys: Fede Carrera DO Acct: [id number] Dis Date: Status: ADM IN PHONE #: [phone] Exam Date: 10/31/2020 1227 FAX #: Reason: Abdominal pain in the lower qudarants EXAMS: CPT: [id number] XR ABDOMEN 1 V 65102 Fluoro Time: DAP (Gy m2): Air Kerma (mGy): <Continued> Technologist: RT Rohan(R) Trnchaseb Date/Time: 10/31/2020 (1244) Lorena Orig Print D/T: S: 10/31/2020 (5064) PAGE 2 Signed Report GLUCOSE BEDSIDE [id number] 11:58:00 Test Item Value Reference Range Interpretation Comments GLUCOSE BEDSIDE TESTING (test code 105 mg/dL 70-110 N = GLUBED) GLUCOSE BEDSIDE [id number] 08:01:00 Test Item Value Reference Range Interpretation Comments GLUCOSE BEDSIDE TESTING (test code 106 mg/dL 70-110 N = GLUBED) [id number] 22:46:00 Test Item Value Reference Range Interpretation [...] yby method. Completed by Nursing: NOGLUCOSE BEDSIDE [id number] 21:55:00 Test Item Value Reference Range Interpretation Comments GLUCOSE BEDSIDE TESTING (test code 119 mg/dL 70-110 H = GLUBED) [id number] 19:33:00 Test Item Value Reference Range Interpretation [...] method. Completed by Nursing: NOCoronavirus 2019 nCoV [id number] 18:46:00 Test Item Value Reference Range Interpretation Comments Coronavirus 2019 nCoV Negative Negative Per arnie nufacturer, Bedside (test code = negativ e results should [id number]) be treated aspresumptive a nd, if inconsistent [...] with COVID-19. Spec Comments: NNT PRO-BRAIN NATRIURETIC [id number] 15:51:00 Test Item Value Reference Range Interpretation Comments NT PRO-BRAIN NATRIURETIC PEPTI 6079 PG/ML 0-100 H (test code = PROBNP) Completed by Nursing: [id number] 15:51:00 Test Item Value Reference Range Interpretation [...] yby method. Completed by Nursing: NOBASIC METABOLIC [id number] 15:51:00 Test Item Value Reference Range Interpretation [...] Completed by Nursing: NO- XR CHEST 1 [id number] 15:42:00 [facility] 1960 Sex: M Name: FAITH VANCE [place] : 1960 Age/S: 60 / M [address] Unit #: [id number] Loc: [place] [address] Phys: Todd Jacobo MD Acct: [id number] Dis Date: Status: PRE ER PHONE #:[phone] Exam Date: 10/30/2020 1524 FAX #: Reason: chest pain EXAMS: CPT: [id number] XR CHEST 1 U18565 Fluoro Time: DAP (Gy m2): Air Kerma [...] PAGE 1 Signed Report Name: FAITH VANCE [place] : 1960 Age/S: 60 / M [address] Unit #: [id number] Loc: [place] [address] Phys: Todd Jacobo MD Acct: [id number] Dis Date: Status: PRE ER PHONE #: [phone] Exam Date: 10/30/2020 1524 FAX #: Reason: chest pain EXAMS: CPT: [id number] XR CHEST 1 V 20933 Fluoro Time: DAP (Gy m2): Air Kerma (mGy): <Continued> Technologist: Kim Andrews RT(R)(CT) Trnscb Date/Time: 10/30/2020 (1541) RubinaR.RB24 Orig Print D/T: S: 10/30/2020 (3913) PAGE 2 Signed ReportCBC W/O [id number] 15:31:00 Test Item Value Reference Range Interpretation [...] code = 9.70 fL 7.0-9.6 H MPV) HEPATIC FUNCTION [id number] 21:42:00 Test Item Value Reference Range Interpretation [...] 114 IUnit/L 20-125 N code = ALKP) [id number] 21:42:00 Test Item Value Reference Range Interpretation Comments LIPASE (test code = LIP) 70 U/L 13-57 H [id number] 21:42:00 Test Item Value Reference Range Interpretation [...] may babak y by method. BASIC METABOLIC [id number] 21:42:00 Test Item Value Reference Range Interpretation [...] code = 9.6 mg/dL 8.0-10.5 N CA) UA RFLX MICR CULT IF [id number] 21:37:00 Test Item Value Reference Range Interpretation [...] INDWELLING CATH (CEDENO)Cath Status: Under 72 hoursPROTHROMBIN [id number] 21:35:00 Test Item Value Reference Range Interpretation [...] (to prevent recurrent infar ct). THROMBOPLASTIN TIME [id number] 21:35:00 Test Item Value Reference Range Interpretation Comments THROMBOPLASTIN TIME 41.7 Seconds 25.0-39.5 H Therape utic Range: PARTIAL (test code = 50.4 - 88.3 Seconds PTT) Effective 09/04/2018 CBC W/AUTO [id number] 21:29:00 Test Item Value Reference Range Interpretation [...] = MDIFF) - CT ABD PELVIS W/O [id number] 20:49:00 [facility] 1960 Sex: M Name: FAITH VANCE [facility] : 1960 Age/S: 60 / M [address] [place] [address] Unit #: [id number] Loc: [place] [address] Phys: Gisel Eugene [employer] Acct: [id number] Dis Date: Status: REG ER PHONE #: [phone] Exam Date: 08/23/20202024 FAX #: [phone] Reason: DIFFUSE ABDOMINAL PAIN EXAMS: CPT CODE: [id number] CT ABD PELVIS W/O CONT 00745 Clinical indication: Diffuse abdominal pain. Contrast - [...] Report (CONTINUED) Name: FAITH VANCE [facility] : 1960 Age/S: 60 / M [address] [place] [address] Unit #: [id number] Loc: [place] [address] Phys: Gisel Eugene [employer] Acct: [id number] Dis Date: Status: REG ER PHONE #: [phone] Exam Date: 08/23/20202024 FAX #: [phone] Reason: DIFFUSE ABDOMINAL PAIN EXAMS: CPT CODE: [id number] CT ABD PELVIS W/O CONT 04575 <Continued> Peritoneum/Other: No extraluminal air. 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 [facility] BASIC METABOLIC [id number] 08:00:00 Test Item Value Reference Range Interpretation [...] 9.9 mg/dL 8.0-10.5 N CA) CBC W/AUTO [id number] 07:08:00 Test Item Value Reference Range Interpretation [...] DIFF REQUIRED (test code NO = MDIFF) [id number] 05:21:00 Test Item Value Reference Range Interpretation Comments GLUBED (test code = 150 MG/DL 70-110 H Performe d by certified GLUBED) 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 [facility] [id number] 21:13:00 Test Item Value Reference Range Interpretation Comments GLUBED (test code = 129 MG/DL 70-110 H Performe d by certified GLUBED) 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 [facility] [id number] 16:48:00 Test Item Value Reference Range Interpretation Comments GLUBED (test code = 116 MG/DL 70-110 H Performe d by certified GLUBED) 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 [facility] [id number] 12:18:00 Test Item Value Reference Range Interpretation Comments GLUBED (test code = 136 MG/DL 70-110 H Performe d by certified GLUBED) 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 [facility] [id number] 12:18:00 Test Item Value Reference Range Interpretation Comments GLUBED (test code = 151 MG/DL 70-110 H Performe d by certified GLUBED) 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 [facility] CBC W/AUTO [id number] 07:32:00 Test Item Value Reference Range Interpretation [...] (test code NO = MDIFF) BASIC METABOLIC [id number] 07:29:00 Test Item Value Reference Range Interpretation [...] code = 9.0 mg/dL 8.0-10.5 N CA) [id number] 05:19:00 Test Item Value Reference Range Interpretation Comments GLUBED (test code = 135 MG/DL 70-110 H Performe d by certified GLUBED) 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 [facility] [id number] 20:31:00 Test Item Value Reference Range Interpretation Comments GLUBED (test code = 189 MG/DL 70-110 H Performe d by certified GLUBED) 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 [facility] [id number] 17:41:00 Test Item Value Reference Range Interpretation Comments GLUBED (test code = 140 MG/DL 70-110 H Performe d by certified GLUBED) 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 [facility] - CTA CHEST FOR [id number] 13:48:00 [facility] : 1960 Sex: M Name: FAITH VANCE [facility] : 1960 Age/S: 60 / M [address] [place] [address] Blvd Unit #: [id number] Loc: [facility] JESS [address] Phys: Gina Gonzalez CLIN[facility] MGR Acct: [id number] Dis Date: Status: ADM IN PHONE #: [phone] Exam Date: 08/12/2020911 FAX #: [phone] Reason: CP, elevated D-dimer EXAMS: CPT CODE: [id number] [place] [address] PROCEDURE: CTA CHEST INDICATION: CP, elevated D-dimer; [...] Report (CONTINUED) Name: FAITH VANCE [facility] : 1960 Age/S: 60 / M [address] [place] [address] Blvd Unit #: [id number] Loc: [place] [address] Phys: Gina Gonzalez NP Acct: [id number] Dis Date: Status: ADM IN PHONE #: [phone] Exam Date: 08/12/2020 0912 FAX #: [phone] Reason: CP, elevated D-dimer EXAMS: CPT CODE: [id number] [place] [address] <Continued> contrast enhancement. No acute abnormality demonstrated. MUSCULOSKELETAL: Healed median sternotomy. No acute skeletal abnormality. IMPRESSION: 1. Negative for pulmonary embolic disease within limitations noted. 2.Atherosclerosis. 3. Coronary arterial calcifications with prior coronary arterial stents and CABG. 4. Interstitial edema. No consolidation. 5. Small bilateral pleural effusions. SL: [id number] at 1348 Reported and signed by: Christiano Piña M.D. 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 [facility] CBC W/AUTO [id number] 09:17:00 Test Item Value Reference Range Interpretation [...] (test code NO = MDIFF) BASIC METABOLIC [id number] 08:28:00 Test Item Value Reference Range Interpretation [...] code = 8.3 mg/dL 8.0-10.5 N CA) [id number] 08:28:00 Test Item Value Reference Range Interpretation Comments PHOSPHOROUS (test code = PHOS) 3.6 MG/DL 2.5-4.9 N [id number] 08:28:00 Test Item Value Reference Range Interpretation Comments MAGNESIUM (test code = MAG) 1.94 mg/dL 1.80-2.40 N [id number] 07:16:00 Test Item Value Reference Range Interpretation Comments GLUBED (test code = 170 MG/DL 70-110 H Performe d by certified GLUBED) 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 [facility] [id number] 07:16:00 Test Item Value Reference Range Interpretation Comments GLUBED (test code = 137 MG/DL 70-110 H Performe d by certified GLUBED) 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 [facility] [id number] 17:01:00 Test Item Value Reference Range Interpretation Comments GLUBED (test code = 88 MG/DL 70-110 N Performe d by certified GLUBED) 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 [facility] [id number] 16:56:00 Test Item Value Reference Range Interpretation Comments ACT-ISTAT (test code 186 SEC 74-137 H Perform ed by certified = ACTI) 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 [facility] [id number] 15:03:00 Test Item Value Reference Range Interpretation Comments ACT-ISTAT (test code 235 SEC 74-137 H Perform ed by certified = ACTI) 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 [facility] [id number] 11:33:00 Test Item Value Reference Range Interpretation Comments GLUBED (test code = 97 MG/DL 70-110 N Performe d by certified GLUBED) 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 [facility] [id number] 06:54:00 Test Item Value Reference Range Interpretation Comments GLUBED (test code = 136 MG/DL 70-110 H Performe d by certified GLUBED) 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 [facility] BASIC METABOLIC [id number] 06:00:00 Test Item Value Reference Range Interpretation [...] COMMENTS: To be done morning of Heart [id number] 06:00:00 Test Item Value Reference Range Interpretation Comments PHOSPHOROUS (test code = PHOS) 4.1 MG/DL 2.5-4.9 N COMMENTS: To be done morning of Heart QbewPFXBZRNQM2413-71-00 06:00:00 Test Item Value Reference Range Interpretation Comments MAGNESIUM (test code = MAG) 1.74 mg/dL 1.80-2.40 L COMMENTS: To be done morning of Heart CathTHROMBOPLASTIN TIME [id number] 05:55:00 Test Item Value Reference Range Interpretation Comments THROMBOPLASTIN TIME 37.9 Seconds 25.0-39.5 N Therape utic Range: PARTIAL (test code = 50.4 - 88.3 Seconds PTT) Effective 09/04/2018 CBC W/AUTO [id number] 05:44:00 Test Item Value Reference Range Interpretation [...] COMMENTS: To be done morning of Heart [id number] 05:44:00 Test Item Value Reference Range Interpretation Comments GLUBED (test code = 92 MG/DL 70-110 N Performe d by certified GLUBED) 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 [facility] HGBA1C%2020-08-10 17:22:00 Test Item Value Reference Range Interpretation Comments HGBA1C% (test code = HGBA1C%) 6.6 %A1C 4.8-6.0 H [id number] 17:17:00 Test Item Value Reference Range Interpretation Comments GLUBED (test code = 118 MG/DL 70-110 H Performe d by certified GLUBED) 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 [facility] TSH REFLEX TO [id number] 15:37:00 Test Item Value Reference Range Interpretation Comments TSH REFLEX TO FT4 (test code = 3.19 IU/mL 0.42-5.47 N TSHREFLEX) [id number] 15:37:00 Test Item Value Reference Range Interpretation [...] y by method. COVID 19 Asymptomatic IH [id number] 11:35:00 Test Item Value Reference Range Interpretation [...] y tests. COMMENTS: If not done this dzngxdovzPSFNRVWO-[id number] 11:31:00 Test Item Value Reference Range Interpretation [...] titative results may babak y by method. [id number] 11:28:00 Test Item Value Reference Range Interpretation [...] to interpret this result as normal/abnormal . 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 [facility] B-TYPE NATRIURETIC [id number] 08:19:00 Test Item Value Reference Range Interpretation Comments B-TYPE NATRIURETIC PEPTIDE (test 508.0 PG/ML 0-100 H code = BNP) BASIC METABOLIC [id number] 08:11:00 Test Item Value Reference Range Interpretation [...] 9.1 mg/dL 8.0-10.5 N CA) HEPATIC FUNCTION [id number] 08:11:00 Test Item Value Reference Range Interpretation [...] 174 IUnit/L 20-125 H code = ALKP) [id number] 08:11:00 Test Item Value Reference Range Interpretation Comments MAGNESIUM (test code = MAG) 1.80 mg/dL 1.80-2.40 N [id number] 08:11:00 Test Item Value Reference Range Interpretation [...] may babak y by method. BASIC METABOLIC [id number] 08:09:00 Test Item Value Reference Range Interpretation [...] code = CA) mg/dL 8.0-10.5 HEPATIC FUNCTION [id number] 08:09:00 Test Item Value Reference Range Interpretation Comments TOTAL PROTEIN (test code = PROT) g/dL 6.4-8.2 ALBUMIN (test code = ALB) g/dL 3.4-5.0 BILIRUBIN TOTAL (test code = BILT) mg/dL 0.0-1.0 BILIRUBIN DIRECT (test code = BILD) MG/DL 0.0-0.30 SGOT/AST (test code = AST) IUnit/L 15-37 SGPT/ALT (test code = ALT) IUnit/L 30-65 ALKALINE PHOSPHATASE TOTAL (test IUnit/L 20-125 code = ALKP) [id number] 08:09:00 Test Item Value Reference Range Interpretation Comments MAGNESIUM (test code = MAG) mg/dL 1.80-2.40 [id number] 08:09:00 Test Item Value Reference Range Interpretation [...] results may babak y by method. PROTHROMBIN [id number] 08:06:00 Test Item Value Reference Range Interpretation [...] (to prevent recurrent infar ct). THROMBOPLASTIN TIME [id number] 08:06:00 Test Item Value Reference Range Interpretation Comments THROMBOPLASTIN TIME 44.5 Seconds 25.0-39.5 H Therap eutic PARTIAL (test code = Range: 50.4 - 88.3 PTT) Seconds Effective 09/04/2018 CBC W/AUTO [id number] 07:58:00 Test Item Value Reference Range Interpretation [...] NO = MDIFF) - XR CHEST 1 Y2505-03-06 07:57:00 [facility] 1960 Sex: M FAX: Todd Jacobo MD [phone] [place]: St: REG FAX: Martínez Dash NP [phone] Name: RAJIVFAITH [facility] : 1960 Age/S: 60/M [address] [place] [address] Unit #: [id number] Loc: [place] [address] Phys: Martínez Dash NP Acct: [id number] Dis Date: Status: REG ER PHONE #: [phone] Exam Date: 08/10/2020 [facility] FAX #: [phone] Reason: Chest Pain EXAMS: CPT CODE: [id number] XR CHEST 1 V 66660 Chest single view 08/10/2020 HISTORY: Chest pain. Comparison is made to 05/21/2018 FINDINGS: Pacemaker and midline sternotomy wires are stable. The lungs are hypoinflated. No consolidation or pleural effusion is present. No vascular congestion or interstitial edema is present. Heart size is mildly enlarged. Aorta is unchanged. IMPRESSION: Hypoinflated lungs. No acute cardiopulmonary process. SL:[id number] at 0757 Reported and signed by: Khai Kruse M.D. CC: Todd Jacobo MD; Martínez Dash NP Technologist: RT Ann(R) Trnscrd Date/Time/By: 08/10/2020 (0757) : By: [email or web address] Orig Print D/T: S: 08/10/2020 (0800) PAGE 1 Signed Report COMPREHENSIVE METABOLIC [id number] 18:02:00 Test Item Value Reference Range Interpretation [...] 50-136 H TOTAL (test code = ALKP) [id number] 18:02:00 Test Item Value Reference Range Interpretation Comments AMYLASE (test code = SERGIO) 82 Unit/L 25-115 N [id number] 18:02:00 Test Item Value Reference Range Interpretation Comments LIPASE (test code = LIP) 185 Unit/L 114-286 N COMPREHENSIVE METABOLIC [id number] 17:56:00 Test Item Value Reference Range Interpretation [...] TOTAL Unit/L 50-136 (test code = ALKP) [id number] 17:56:00 Test Item Value Reference Range Interpretation Comments AMYLASE (test code = SERGIO) Unit/L 25-115 [id number] 17:56:00 Test Item Value Reference Range Interpretation Comments LIPASE (test code = LIP) 185 Unit/L 114-286 N CBC W/AUTO [id number] 17:46:00 Test Item Value Reference Range Interpretation [...] CRITERIA MDIFF) - CT ABD PELVIS W/O [id number] 17:46:00 Name: FAITH VANCE [facility] : 1960 Age/S: 58 / M [address] [place] Unit #: [id number] Loc: [place] [address] Phys: Nila Chester MD Acct: [id number] Dis Date: Status: REG ER PHONE #: [phone] Exam Date: 01/03/2019 1730 FAX #: Reason: llq EXAMS: CPT: [id number] CT ABD PELVIS W/O CONT 25832 Location of dictation: B2 CT abdomen and [...] seen. No bowel containing hernias. No free fluidor free air. Retroperitoneum and pelvis: No abnormal mass or adenopathy. Bones and soft tissues: Postsurgical changes of the lower lumbar spine with no focal findings or changes. IMPRESSION: 1. Compari son made to 09/14/2017. No acute findings or changes in the abdomen or pelvis. 2. Status post cholecystectomy. PAGE 1 Signed Report (CONTINUED) Name: FAITH VANCE [facility] Cristofer : 1960 Age/S:58 / M [address] [facility] [place] Unit #: [id number] Loc: [place] [address] Phys: Nila Chester MD Acct: [id number] Dis Date: Status: REG ER PHONE #: [phone] Exam Date: 01/03/2019 1730 FAX #: Reason: llq EXAMS: CPT: [id number] CT ABD PELVIS W/O CONT 19193 <Continued> at 1746 Reported and signed by: Renuka Willett M.D. CC: Nila Chester MD Technologist:Tavon Jurado, RT(R)(CT)(MRI) CTDI: DLP: Trnscb Date/Time: 01/03/2019(3051) tSHAYNAPXC Orig Print D/T: S: 01/03/2019 (4122) PAGE 2 Signed ReportBedside [id number] 11:47:00 Test Item Value Reference Range Interpretation Comments Bedside Glucose (test code = 51337-3) 155 70-120 H Meter ID: [id number] Medical [facility] Brownwoododium [id number] 08:31:00 Test Item Value Reference Range Interpretation Comments Sodium Level (test code = 2951-2) 139 136-145 [facility]Pot[facility] Uhjvd8822-66-39 08:31:00 Test Item Value Reference Range Interpretation Comments Potassium Level (test code = 2823-3) 4.0 3.5-5.1 [facility] HospitalChloride [id number] 08:31:00 Test Item Value Reference Range Interpretation Comments Chloride Level (test code = 2075-0) 106 98-107 [facility] HospitalCarbon Dioxide Fowjl7386-42-02 08:31:00 Test Item Value Reference Range Interpretation Comments Carbon Dioxide Level (test code = 2027-9) [facility] HospitalAnion [id number] 08:31:00 Test Item Value Reference Range Interpretation Comments Anion Gap (test code = 65958-7) 12.0 8-16 [facility] HospitalBlood Urea Vbekepyu8615-97-78 08:31:00 Test Item Value Reference Range Interpretation Comments Blood Urea Nitrogen (test code = 12-14 3094-0) [facility] HospitalCreatinine2018-06-08 08:31:00 Test Item Value Reference Range Interpretation Comments Creatinine (test code = 2160-0) 0.72 0.72-1.25 [facility] HospitalBUN/Creatinine Nqrmp4707-08-05 08:31:00 Test Item Value Reference Range Interpretation Comments BUN/Creatinine Ratio (test code = 11-13 3097-3) [facility] HospitalEstimat Glomerular Filtration Cixy6426-37-20 08:31:00 Test Item Value Reference Range Interpretation Comments Estimat Glomerular Filtration Rate 60- >60 (test code = 12133-8) Ranges were taken from the National Kidney Disease Education Program and the National Kidney Foundation literature.Reference ranges:60 or greater: Kyeiti95- 59 (for 3 consecutive months): Chronic kidneydisease 15 or less: Kidney failure [facility] HospitalGlucose Qafhu2222-67-89 08:31:00 Test Item Value Reference Range Interpretation Comments Glucose Level (test code = VBL8104) 195 74-118 H [facility] HospitalCalcium Caqbc8982-18-63 08:31:00 Test Item Value Reference Range Interpretation Comments Calcium Level (test code = 61956-8) 9.0 8.4-10.2 [facility] HospitalWhite Blood Qnzcx5259-11-23 08:12:00 Test Item Value Reference Range Interpretation Comments White Blood Count (test code = 6690-2) 6.06 4.8-10.8 [facility] HospitalRed Blood Yzgru9166-00-20 08:12:00 Test Item Value Reference Range Interpretation Comments Red Blood Count (test code = 789-8) 4.22 4.3-5.7 L [facility] HospitalHemoglobin2018-06-08 08:12:00 Test Item Value Reference Range Interpretation Comments Hemoglobin (test code = 70221-3) 12.5 14.0-18.0 L [facility] HospitalHematocrit2018-06-08 08:12:00 Test Item Value Reference Range Interpretation Comments Hematocrit (test code = 4544-3) 36.2 38.2-49.6 L [facility] HospitalMean Corpuscular Xnbjgj8640-44-90 08:12:00 Test Item Value Reference Range Interpretation Comments Mean Corpuscular Volume (test code = 85.8 81-99 787-2) [facility] HospitalMean Corpuscular Avqyfrfdmd3963-42-63 08:12:00 Test Item Value Reference Range Interpretation Comments Mean Corpuscular Hemoglobin (test code 29.6 28-32 = 785-6) [facility] HospitalMean Corpuscular Hemoglobin Yctxrqy3084-88-60 08:12:00 Test Item Value Reference Range Interpretation Comments Mean Corpuscular Hemoglobin Concent 34.5 31-35 (test code = 786-4) [facility] HospitalRed Cell Distribution Gvzcd5137-80-74 08:12:00 Test Item Value Reference Range Interpretation Comments Red Cell Distribution Width (test code 14.2 11.7-14.4 = 88021-1) [facility] HospitalPlatelet Ahrne7641-04-09 08:12:00 Test Item Value Reference Range Interpretation Comments Platelet Count (test code = 777-3) 263 140-360 [facility] HospitalNeutrophils (%) (Auto)2017-10-27 08:12:00 Test Item Value Reference Range Interpretation Comments Neutrophils (%) (Auto) (test code = 51.2 38.7-80.0 37534-8) [facility] HospitalLymphocytes (%) (Auto)2017-10-27 08:12:00 [...] # (Auto) (test code = 2.0 1.0-3.2 26179-0) [facility] HospitalMonocytes # (Auto)2017-10-27 08:12:00 [...] 0.0-0.1 [facility] HospitalAbsolute Immature Granulocyte ([id number] 08:12:00 Test Item Value Reference Range Interpretation Comments Absolute Immature Granulocyte (auto 0.03 0-0.1 (test code = Absolute Immature Granulocyte (auto) [facility] HospitalCreatine Kinase [id number] 15:14:00 Test Item Value Reference Range Interpretation Comments Creatine Kinase MB (test code = 3.90 0-5.0 83228-9) [facility] HospitalTroponin [id number] 15:14:00 Test Item Value Reference Range Interpretation Comments Troponin I (test code = BRM3073) 0.054 0-0.300 [facility] HospitalCreatine Sylami3368-91-72 15:07:00 Test Item Value Reference Range Interpretation Comments Creatine Kinase (test code = 2157-6) 297 30-200 H [facility] HospitalHemoglobin A1c Bkmdetp4762-03-15 08:04:00 Test Item Value Reference Range Interpretation Comments Hemoglobin A1c Percent (test code = 12.6 4.0-7.0 H Hemoglobin A1c Percent) [facility] HospitalTriglycerides Zocpz1056-41-95 06:57:00 Test Item Value Reference Range Interpretation Comments Triglycerides Level (test code = 200 0-149 H 2571-8) [facility] HospitalCholesterol Pavon2816-14-29 06:57:00 Test Item Value Reference Range Interpretation Comments Cholesterol Level (test code = 2093-3) 239 0-199 H Less than 200 mg/dL Low Xmkl357 - 239 mg/dL Borderline Cwde572 mg/dl and greater High RiskHill Country Memorial HospitalLDL Ejxtpaugumj9154-05-17 06:57:00 Test Item Value Reference Range Interpretation Comments LDL Cholesterol (test code = 2089-1) 164 60-130 H [facility] HospitalHDL Nstmiisdakh9503-26-51 06:57:00 Test Item Value Reference Range Interpretation Comments HDL Cholesterol (test code = 2085-9) 35 40-60 L [facility] HospitalCholesterol/HDL Abmpd9358-52-10 06:57:00 Test Item Value Reference Range Interpretation Comments Cholesterol/HDL Ratio (test code = 6.8 3.9-4.7 H 9830-1) [facility] HospitalUrine Cannabinoids Amxgzq7952-81-08 16:18:00 Test Item Value Reference Range Interpretation Comments Urine Cannabinoids Screen (test code NEGATIVE NEGATIVE = 67449-8) THESE RESULTS ARE FOR MEDICAL TREATMENT ONLYTHIS REPORT CONTAINS UNCONFIRMED SCREENING RESULTS*POSITIVE RESULTS WILL BE CONFIRMED BY REFERENCE LAB UPON REQUEST CUT-OFFDRUG CLASS CONCENTRATION ng/mLAmphetamines 1000Methamphetamines 1000Cocaine 300Opiate 300Phencyclidine 25Cannabinoid 50Barbiturates 300Benzodiazepine 300Methadone 300[facility] HospitalUrine Methadone Jytakb1682-69-14 16:18:00 Test Item Value Reference Range Interpretation Comments Urine Methadone Screen (test code = NEGATIVE NEGATIVE 39416-4) THESE RESULTS ARE FOR MEDICAL TREATMENT ONLYTHIS REPORT CONTAINS UNCONFIRMED SCREENING RESULTS*POSITIVE RESULTS WILL BE CONFIRMED BY REFERENCE LAB UPON REQUEST CUT-OFFDRUG CLASS CONCENTRATION ng/mLAmphetamines 1000Methamphetamines 1000Cocaine Metabolite 300Opiate 300Phencyclidine 25Cannabinoid 50Barbiturates 300Benzodiazepine 300Methadone 300[facility] HospitalUrine Opiates Yxmfxw6984-84-40 16:18:00 Test Item Value Reference Range Interpretation Comments Urine Opiates Screen (test code = NEGATIVE NEGATIVE 40453-9) [facility] HospitalUrine Barbiturates Awbzrq9515-51-38 16:18:00 Test Item Value Reference Range Interpretation Comments Urine Barbiturates Screen (test code NEGATIVE NEGATIVE = 236028352) [facility] HospitalUrine Phencyclidine [id number] 16:18:00 Test Item Value Reference Range Interpretation Comments Urine Phencyclidine Screen (test NEGATIVE NEGATIVE code = 25125-4) [facility] Amphetamines Dzucng1379-16-06 16:18:00 Test Item Value Reference Range Interpretation Comments Urine Amphetamines Screen (test code NEGATIVE NEGATIVE = 93921-0) [facility] Methamphetamines [id number] 16:18:00 Test Item Value Reference Range Interpretation Comments Urine Methamphetamines Screen (test NEGATIVE NEGATIVE code = Urine Methamphetamines Screen) [facility] Benzodiazepines Pqhxiq0165-78-04 16:18:00 Test Item Value Reference Range Interpretation Comments Urine Benzodiazepines Screen (test NEGATIVE NEGATIVE code = 71124-3) [facility] Cocaine Wdkhny9025-48-25 16:18:00 Test Item Value Reference Range Interpretation Comments Urine Cocaine Screen (test code = NEGATIVE NEGATIVE 3398-5) [facility] HospitalProthrombin Hwgu9360-21-47 14:13:00 Test Item Value Reference Range Interpretation Comments Prothrombin Time (test code = 5902-2) 13.6 11.9-14.5 [facility] HospitalProthromb Time International Epxnl6139-49-83 14:13:00 Test Item Value Reference Range Interpretation Comments Prothromb Time International Ratio 1.13 (test code = 6301-6) Oral Anticoagulant Therapy INR Values:1. Low Intensity Therapy 1.5 - 2.02. Moderate Intensity Therapy 2.0 - 3.03. High Intensity Therapy(1) 2.5 - 3.54. High Intensity Therapy(2) 3.0 - 4.05. Panic Value INR > 5.0[facility] HospitalActivated Partial Thromboplast [id number] 14:13:00 Test Item Value Reference Range Interpretation Comments Activated Partial Thromboplast Time 27.6 23.8-35.5 (test code = 07939-8) [facility] HospitalTotal Txchxmfhh2030-76-30 14:10:00 Test Item Value Reference Range Interpretation [...] code = 1742-6) [facility] HospitalTotal Cuggfld3601-84-04 14:10:00 Test Item Value Reference Range Interpretation Comments Total Protein (test code = 2885-2) 7.3 6.5-8.1 [facility] HospitalAlbumin2018-06-04 14:10:00 Test Item Value Reference Range Interpretation Comments Albumin (test code = 1751-7) 4.0 3.5-5.0 [facility] HospitalGlobulin2018-06-04 14:10:00 Test Item Value Reference Range Interpretation Comments Globulin (test code = 49984-1) 3.3 2.3-3.5 [facility] HospitalAlbumin/Globulin Scojv4941-38-03 14:10:00 Test Item Value Reference Range Interpretation Comments Albumin/Globulin Ratio (test code = 1.2 0.8-2.0 1759-0) [facility] HospitalAlkaline Klikilgnvsd5672-38-34 14:10:00 Test Item Value Reference Range Interpretation Comments Alkaline Phosphatase (test code = 109 40-150 6768-6) [facility] HospitalB-Type Natriuretic Zewjimm9913-58-03 14:10:00 Test Item Value Reference Range Interpretation Comments B-Type Natriuretic Peptide (test code = 92.8 0-100 65852-7) [facility] HospitalAmylase Vwsjx9814-55-41 14:10:00 Test Item Value Reference Range Interpretation Comments Amylase Level (test code = 1798-8) 126 25-125 H [facility] HospitalLipase2018-06-04 14:10:00 Test Item Value Reference Range Interpretation Comments Lipase (test code = 3040-3) 98 8-78 H [facility] HospitalD-Dimer Quantitative (PE/DVT)2017-10-23 14:02:00 Test Item Value Reference Range Interpretation Comments D-Dimer Quantitative (PE/DVT) (test 0.49 0.00-0.45 H code = 79837-6) [facility] HospitalDirect Kttiyqbhc9759-27-78 13:47:00 Test Item Value Reference Range Interpretation Comments Direct Bilirubin (test code = 49420-7) 0.2 0.0-5.0 [facility] HospitalMagnesium Vvweo1636-27-74 06:52:00 Test Item Value Reference Range Interpretation Comments Magnesium Level (test code = 11680-8) 1.5 1.3-2.1 [facility] HospitalUrine [id number] 05:09:00 Test Item Value Reference Range Interpretation Comments Urine WBC (test code = 5821-4) NONE 0-5 [facility] HospitalU[facility] [id number] 05:09:00 Test Item Value Reference Range Interpretation Comments Urine RBC (test code = 33544-2) NONE 0-5 [facility] Zfdwllaw5399-40-61 05:09:00 Test Item Value Reference Range Interpretation Comments Urine Bacteria (test code = 38040-3) NONE NONE [facility] Epithelial Ilzmr0372-42-50 05:09:00 Test Item Value Reference Range Interpretation Comments Urine Epithelial Cells (test code = NONE NONE 88119-1) [facility] HospitalU[facility] Cudre6960-17-71 04:46:00 Test Item Value Reference Range Interpretation Comments Urine Color (test code = 5778-6) YELLOW YELLOW [facility] Zutorov6061-67-11 04:46:00 Test Item Value Reference Range Interpretation Comments Urine Clarity (test code = 28284-7) CLEAR CLEAR [facility] HospitalU[facility] Specific Gurnwes0224-56-05 04:46:00 Test Item Value Reference Range Interpretation Comments Urine Specific [place] (test code = 1.010 1.010-1.025 5811-5) [facility] HospitalU[facility] [id number] 04:46:00 Test Item Value Reference Range Interpretation Comments Urine pH (test code = 16105-1) 8 5-7 H [facility] Leukocyte Bzttxxsq0080-15-49 04:46:00 Test Item Value Reference Range Interpretation Comments Urine Leukocyte Esterase (test code NEGATIVE NEGATIVE = 5799-2) [facility] HospitalU[facility] Hvwjltn0344-66-09 04:46:00 Test Item Value Reference Range Interpretation Comments Urine Nitrite (test code = 53209-7) NEGATIVE NEGATIVE [facility] HospitalU[facility] Fgxhvex6349-69-86 04:46:00 Test Item Value Reference Range Interpretation Comments Urine Protein (test code = 5804-0) NEGATIVE NEGATIVE [facility] HospitalU[facility] Glucose (UA)2017-03-05 04:46:00 Test Item Value Reference Range Interpretation Comments Urine Glucose (UA) (test code = NEGATIVE NEGATIVE 2349-9) [facility] HospitalU[facility] Fpfkycg1407-08-23 04:46:00 Test Item Value Reference Range Interpretation Comments Urine Ketones (test code = 13415-5) NEGATIVE NEGATIVE [facility] Razvqqsbangm8059-32-73 04:46:00 Test Item Value Reference Range Interpretation Comments Urine Urobilinogen (test code = 0.2 0.2-1 66515-3) [facility] HospitalU[facility] Vpyeeydcs7174-38-63 04:46:00 Test Item Value Reference Range Interpretation Comments Urine Bilirubin (test code = 1978-6) NEGATIVE NEGATIVE [facility] HospitalU[facility] Cnhpu5743-92-77 04:46:00 Test Item Value Reference Range Interpretation Comments Urine Blood (test code = 92370-1) 2+ NEGATIVE H [facility] HospitalCTA BRAIN [place] [address] Patient Name: FAITH VANCE MR #: [id number] : 1960 Age/Sex: 57/M Req #: [id number] Adm Physician: ALEXIS COX MD Ordered by: ALEXIS COX MD Report #: [id number] [facility] Procedure: [id number] CT/CTA BRAIN Exam Date: 10/24/17 Exam Time: [...] PM Dictated By: ANA MARIA ARTEAGA MD 0093 Transcribed By: ANDREE on 10/24/17 1633 COPY TO: ALEXIS COX MDCT BRAIN WO [place] [address] PatientName: FAITH VANCE MR #: [id number] : 1960 Age/Sex: 57/M Req #: [id number] Adm Physician: Ordered by: KHAI WAHL MD Report #: [id number] Location: ER Room/Bed: __ Procedure: [id number] CT/CT BRAIN WO Exam Date: 10/23/17 Exam [...] COPY TO: KHAI WAHL V MDCTA CHEST [place] [address] PatientName: FAITH VANCE MR #: [id number] : 1960 Age/Sex: 57/M Req #: [id number] Adm Physician: Ordered by: KHAI WAHL MD Report #: [id number] Location: ER Room/Bed: __ Procedure: [id number] CT/CTA CHEST Exam Date: 10/23/17 Exam Time: [...] is below limits set by [facility]).FINDINGS: Lines and Tubes: Pacemaker with leads [...] dissection. 2. Minimal opacity right lung base, nonspec ific. Pneumonitis possible. 3. Hepatic steatosis. Signed by: Dr. Oren Irizarry MD on 10/23/2017 4:21 PM Dictated By: OREN IRIZARRY MD 162 Transcribed By: ANDREE on 10/23/17 162 COPY TO: KHAI WAHL V [facility] SINGLE (PORTABLE) [place] [address] PatientName: FAITH VANCE MR #: [id number] : 1960 Age/Sex: 57/M Req #: [id number] Adm Physician: Ordered by: KHAI WAHL MD Report #: [id number] Location: ER Room/Bed: __ Procedure: [id number] DX/CHEST SINGLE (PORTABLE) Exam Date: 10/23/17 Exam [...] TO: KHAI WAHL V MDCT BRAIN WO [place] [address] PatientName: FAITH VANCE MR #: [id number] : 1960 Age/Sex: 56/M Req #: [id number] Adm Physician: Ordered by: JACQUELYN MONTES DE OCA MD Report #: [id number] Location: ER Room/Bed: Procedure: [id number] CT/CT BRAIN WO Exam Date: Exam Time: [...] ANDREE on 04/04/17201 COPY TO: JACQUELYN MONTES ED OCA MDCT CERVICAL SPINE WO [place] [address] PatientName: FAITH VANCE MR #: [id number] : 1960 Age/Sex: 56/M Req #: [id number] Adm Physician: Ordered by: JACQUELYN MONTES DE OCA MD Report #: [id number] Location: ER Room/Bed: Procedure: [id number] CT/CT CERVICAL SPINE WO Exam Date: Exam [...] 04/04/17206 COPY TO: JACQUELYN MONTES DE OCA [facility] SINGLE (PORTABLE) [place] [address] PatientName: FAITH VANCE MR #: [id number] : 1960 Age/Sex: 56/M Req #: [id number] Adm Physician: Ordered by: JACQUELYN MONTES DE OCA MD Report #: [id number] Location: ER Room/Bed: Procedure: [id number] DX/CHEST SINGLE (PORTABLE) Exam Date: 04/04/17 Exam [...] OCA MDHIP RIGHT 2-3 VW (+/- PELVIS) [place] [address] PatientName: FAITH VANCE MR #: [id number] : 1960 Age/Sex: 56/M Req #: [id number] Adm Physician: Ordered by: JACQUELYN MONTES DE OCA MD Report #: [id number] Location: ER Room/Bed: Procedure: [id number] DX/HIP RIGHT 2-3 VW (+/- PELVIS) Exam [...] DE OCA MDSP LUMBAR, COMPLETE MIN 4VW [address], [place], [place] [address] PatientName: FAITH VANCE MR #: [id number] : 1960 Age/Sex: 56/M Req #: [id number] Adm Physician: Ordered by: JACQUELYN MONTES DE OCA MD Report #: [id number] Location: ER Room/Bed: Procedure: [id number] DX/SP LUMBAR, COMPLETE MIN 4VW Exam Date: [...] JACQUELYN MONTES DE OCA MDUS ABDOMEN COMPLETE [place] [address] PatientName: FAITH VANCE MR #: [id number] : 1960 Age/Sex: 56/M Req #: [id number] Adm Physician: NICHELLE PALACIOS MD Ordered by: SCOTT AMIN MD Report #: [id number] [facility] Room/Bed: [place] [address]-1 Procedure: [id number] US/US ABDOMEN COMPLETE Exam Date: 03/08/17 Exam [...] at 10:40 Dictated By: BROOKE SAMPSON MD 104 Transcribed By: ANIBAL on 03/08/17 1040 COPY TO: SCOTT AMIN [facility] ([place] [address] PatientName: FAITH VANCE MR #: [id number] : 1960 Age/Sex: 56/M Req #: [id number] Adm Physician: Ordered by: JACQUELYN MONTES DE OCA MD Report #: [id number] Location: ER Room/Bed: Procedure: [id number] DX/CHEST SINGLE (PORTABLE) Exam Date: 03/05/17 Exam [...]
[2022-07-21] MEDS ORDERED: ONDANSETRON 4 MG/2 ML VIAL ONE (13:10)
[2022-07-21] MEDS ORDERED: HYDROCODONE/APAP 10/325 TAB ONE (13:10)
--- NOTE | 2022-07-21 13:49 | EDPHYS ---
Physician Documentation [facility] Name: Ernie Rooney Age: 62 yrs Sex: Male : 1960 Arrival Date: 07/21/2022 Time: 12:28 Bed 18 Private MD: ED Physician Hawk Parrish HPI: 07/21 12:37 This 62 yrs old Male presents to ER via EMS with complaints of Pain All Over - sb4 CHRONIC. 12:37 Mr. Rooney presents via EMS with complaints of back, neck, chest, and sacral pain sb4 (wound). EMS administered 324 mg aspirin. Patient was here 12 hours ago with the same complaint and had a negative cardiac workup. . Historical: - Allergies: 12:29 Nitroglycerin; bp - PMHx: 12:29 Arthritis; Back pain; CAD; CHF; CVA; Depression; Fibromyalgia; GERD; Hyperlipidemia; bp Hypertensive disorder; Hypothyroidism; IDDM; Left sided weakness from previous CVA; Myocardial infarction; Pacemaker; - PSHx: 12:29 bilat BKA's; bypass; CABG; bp - Immunization history:: Adult Immunizations up to date. - Social history:: Smoking status: unknown. ROS: 12:37 Constitutional: Negative for fever, chills, and weight loss, Eyes: Negative for injury, sb4 pain, redness, and discharge, ENT: Negative for injury, pain, and discharge, Respiratory: Negative for shortness of breath, cough, wheezing, and pleuritic chest pain, Abdomen/GI: Negative for abdominal pain, nausea, vomiting, diarrhea, and constipation, MS/Extremity: Negative for injury and deformity. 12:37 Neck: Positive for pain with movement, pain at rest. 12:37 Cardiovascular: Positive for chest pain, Negative for edema, palpitations. 12:37 Back: Positive for pain at rest, pain with movement. 12:37 Skin: Positive for sacral wound. Exam: 12:37 Constitutional: This is a well developed, well nourished patient who is awake, alert, sb4 and in no acute distress. Head/Face: Normocephalic, atraumatic. Eyes: Extra-ocular motions intact. Periorbital areas with no swelling, redness, or edema. Cardiovascular: Regular rate and rhythm with a normal S1 and S2. Respiratory: Lungs have equal breath sounds bilaterally, clear to auscultation and percussion. No rales, rhonchi or wheezes noted. No increased work of breathing, no retractions or nasal flaring. Abdomen/GI: Soft, non-tender, no distension. 12:37 Musculoskeletal/extremity: Bilateral BKAs. 12:37 Skin: Slight skin breakdown around the sacral. No bleeding, exudate, or significant erythema. 13:38 ECG was reviewed by the Attending Physician. sb4 Vital Signs: 12:28 BP 142 / 78; Pulse 70; Resp 16; Temp 98; Pulse Ox 95% ; bp MDM: 12:30 Patient medically screened. sb4 12:37 Differential diagnosis: angina, [place], chronic pain, muscle strain. sb4 13:49 Data reviewed: vital signs, nurses notes, EMS record, lab test result(s), cardiac sb4 enzymes, troponin i, EKG, I have discussed the patient's presentation/case with the attending Emergency Department Physician; and as a result, I will discharge patient. Consideration of Admission/Observation Escalation of care including admission/observation considered. Care significantly affected by the following chronic conditions: Hypertension, Congestive Heart Failure. 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 13:57 ED course: Patient's 4th ER visit in 48 hours for same complaints with negative sb4 workups. Patient is noncompliant and does not fill his medications. Instructed on importance of taking medications and following up with cardiology.. 03/02 12:32 Order name: Troponin High Sensitivity; Complete Time: 13:49 sb4 0302 12:32 Order name: EKG Strip; Complete Time: 13:23 sb4 EC:38 Rate is 82 beats/min. Rhythm is regular. [place] interval is normal at 150 msec. QRS sb4 interval is normal at 162 msec. QT interval is normal at [address] changes noted. Clinical impression: electronic ventricular pacemaker. Interpreted by me. Reviewed by me. Administered Medications: 12:45 CANCELLED (Other Intervention Used): Zofran (ondansetron) 4 mg IM once sb4 13:00 Drug: [place] (HYDROcodone-acetaminophen) 10 mg-325 mg 1 tabs Route: PO; bp 13:00 Drug: Zofran (Ondansetron) 4 mg Route: IVP; Site: left antecubital; bp Disposition: 19:25 Co-signature as Attending Physician, Hawk Parrish MD. rn Disposition Summary: 07/21/22 13:49 Discharge Ordered Location: Home sb4 Problem: an ongoing problem sb4 Symptoms: have improved sb4 Condition: Stable sb4 Diagnosis - Angina pectoris, unspecified sb4 Followup: sb4 - With: - When: 48 Hours - Reason: Recheck today's complaints, Continuance of care, Re-evaluation by your physician Discharge Instructions: - Discharge Summary Sheet sb4 - Angina sb4 Forms: - Medication Reconciliation Form sb4 - Thank You Letter sb4 - Antibiotic Education sb4 - Prescription Opioid Use sb4 Signatures: Dispatcher [employer] EDHawk Ha MD MD rn Peltier, Brian, RN RN bp Brown, Sophia, PA-C PARandy sb4 Corrections: (The following items were deleted from the chart) 12:41 12:37 Skin: Positive for sacral skin breakdown without bleeding or exudate, sb4 sb4 12:45 12:36 Zofran (ondansetron) 4 mg IM once ordered. sb4 sb4
--- NOTE | 2022-07-21 13:49 | ER ---
Nurse's Notes [facility] Name: Ernie Rooney Age: 62 yrs Sex: Male : 1960 Arrival Date: 07/21/2022 Time: 12:28 Bed 18 Private MD: Diagnosis: Angina pectoris, unspecified Presentation: 07/21 12:28 Chief complaint: EMS states: CHRONIC PAIN. Coronavirus screen: At this time, the client bp does not indicate any symptoms associated with coronavirus-19. Ebola Screen: No symptoms or risks identified at this time. Initial Sepsis Screen: Does the patient meet any 2 criteria? No. Patient's initial sepsis screen is negative. Does the patient have a suspected source of infection? No. Patient's initial sepsis screen is negative. Risk Assessment: Do you want to hurt yourself or someone else? Patient reports no desire to harm self or others. Onset of symptoms is unknown. Care prior to arrival: IV initiated. 22 GA, in the left antecubital area, Glucose check: 132. 12:28 Method Of Arrival: EMS: [facility] bp 12:28 Acuity: TONE 5 bp 12:46 Acuity: TONE 3 iw Triage Assessment: 12:29 General: Appears in no apparent distress. Behavior is appropriate for age, anxious. bp Pain: Complains of pain in GENERALIZED. EENT: No deficits noted. Neuro: No deficits noted. Cardiovascular: No deficits noted. Respiratory: No deficits noted. GI: No signs and/or symptoms were reported involving the gastrointestinal system. : No signs and/or symptoms were reported regarding the genitourinary system. Derm: Wound noted coccyx. Musculoskeletal: Amputation of BILATERAL BKA. Historical: - Allergies: 12:29 Nitroglycerin; bp - PMHx: 12:29 Arthritis; Back pain; CAD; CHF; CVA; Depression; Fibromyalgia; GERD; Hyperlipidemia; bp Hypertensive disorder; Hypothyroidism; IDDM; Left sided weakness from previous CVA; Myocardial infarction; Pacemaker; - PSHx: 12:29 bilat BKA's; bypass; CABG; bp - Immunization history:: Adult Immunizations up to date. - Social history:: Smoking status: unknown. Screenin:31 [facility] ED Fall Risk Assessment (Adult) History of falling in the last 3 months, bp including since admission No falls in past 3 months (0 pts). Abuse screen: Denies threats or abuse. Denies injuries from another. Nutritional screening: No deficits noted. Tuberculosis screening: No symptoms or risk factors identified. Assessment: 12:31 General: SEE TRIAGE NOTE. bp Vital Signs: 12:28 BP 142 / 78; Pulse 70; Resp 16; Temp 98; Pulse Ox 95% ; bp ED Course: 12:28 Patient arrived in ED. bp 12:29 Triage completed. bp 12:29 Makayla Moreno PA-C is PHCP. sb4 12:29 Hawk Parrish MD is Attending Physician. sb4 12:31 Arm band placed on. bp 12:31 Patient has correct armband on for positive identification. Bed in low position. Call bp light in reach. Side rails up X2. 12:31 Maintain EMS IV. Dressing intact. Good blood return noted. Site clean \T\ dry. Gauge \T\ bp site: 22 LEFT AC. 12:58 Khai Hernadnez, RN is Primary Nurse. bp 13:49 Kavin Keenan MD is Referral Physician. sb4 Administered Medications: 12:45 CANCELLED (Other Intervention Used): Zofran (ondansetron) 4 mg IM once sb4 13:00 Drug: [place] (HYDROcodone-acetaminophen) 10 mg-325 mg 1 tabs Route: PO; bp 13:00 Drug: Zofran (Ondansetron) 4 mg Route: IVP; Site: left antecubital; bp Medication: 12:31 VIS not applicable for this client. bp Outcome: 13:49 Discharge ordered by . sb4 15:25 Patient left the ED. ld1 Signatures: Polly Leal RN RN Khai Hernandez RN RN Yelena Staton RN RN ld1 Makayla Moreno PA-C PA-C sb4
[2022-07-21 15:41] VITALS: TEMP 98.7
[2022-07-21 15:42] VITALS: BP 126/74; O2SAT 99
--- NOTE | 2022-07-22 14:32 | EKG ---
Test Date: 2022-07-21 Test Time: 13:20:12 Restaurant Host: ABHISHEK MEASUREMENT RESULTS: Intervals: Rate: 82 AL: 150 QRSD: 162 QT: 460 QTc: 537 [place]: P: 35 AL: 150 QRS: -50 T: 116 INTERPRETIVE STATEMENTS: Electronic ventricular pacemaker Compared to ECG 07/20/2022 23:14:05 No significant changes Electronically Signed On 07-22-22 14:29:18 BOOK PACKER by Kavin Keenan
== END 2022-07-21 15:25 | disposition home or self-care (01) ==
LOC: ER 12:27
DX: I20.9 Angina pectoris, unspecified (principal); I10 Essential (primary) hypertension; I50.9 Heart failure, unspecified; Z95.0 Presence of cardiac pacemaker; Z95.1 Presence of aortocoronary bypass graft; Z88.8 Allergy status to other drugs, medicaments and biological substances
CPT/HCPCS: 93005; 36415; 84484; 96374; 99283; J2405

== ENCOUNTER 2022-07-25 17:47 | Emergency (ER) | payer OTHER ==
--- OUTSIDE RECORDS SUMMARY | 2022-07-25 17:56 | XMS REPORT | Continuity of Care Document ---
:1960 Author Organization [facility] t Address [address] [place] [address] Care Team Providers Name Role Phone MONIKA HALL MD Primary Care Physician [id number] Attending Clinician Unavailable Harshal Zhu Attending Clinician Unavailable Finn Shah Attending Clinician Unavailable Doctor Unassigned, [place] Attending Clinician Unavailable Josselyn Harding RN Attending [...] Attending Clinician Alis Garcia MD Attending Clinician [phone] Kaylyn Calvin MD Attending Clinician Tha Gunter [...] Clinician Valery Carrillo MD Attending Clinician VALERY CRARILLO Attending Clinician Unavailable Anna HALL, Sendil K.H. [...] Unavailable Casper RAE, Michael Gaxiola Attending Clinician [phone] Nova RAE, Cortney Law Attending Clinician [phone] Emy SCRUGGS, Rhonda Attending Clinician Malia HALL, Dennis Arreola Attending Clinician Carlos Allen MD Attending Clinician ALEXIS COX Attending Clinician Unavailable JACQUELYN MONTES DE OCA Attending Clinician Unavailable NICHELLE PALACIOS Attending Clinician Unavailable [id number] Admitting Clinician Unavailable Nika Martin Admitting Clinician [...] Admitting Clinician Unavailable Michael Hernandez Admitting Clinician [phone] Dennis Finley MDmed Mohamed Admitting Clinician ALEXIS COX Admitting Clinician Unavailable NICHELLE PALACIOS Admitting Clinician Unavailable Payers Payer Name Policy Type Policy Number Effective Date Expiration Date Sujit daugherty HLSM HLSM [id number] [employer] [id number] 2018spring 00:00:00 [employer] [id number] [facility] Patient [...] Added automatic ally from request for surgery [id number] Troponin I Troponin I Disease Active 2020-0 [...] 00:00: [place] involving involving 00 Medi uriel [place] 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 Type 2 Type 2 Disease Active 2019- Univers diabetes diabetes 8-29 ity of mellitus mellitus 00:00: [place] without without 00 Medical complicati complicati Br anch on, on, without without long-term long-term current current use of use of insulin insulin Essential Essential Disease Active Uni vers hypertensi hypertensi 8-29 it y of on on 00:00: [place] [address] Medical Branch Other Other Disease Active Univers hyperlipid hyperlipid 8-29 it y of emia emia 00:00: [place] [facility] Stroke Stroke Disease Active Univers 5-12 ity of 00:00: [place] [address] Medical Branch Left-sided Left-sided Disease Active U [...] chest pain 2-22 it y of 00:00: [place] [address] Medical Branch Chest pain Chest pain Problem Active [facility] Coronary CAD Problem Active [facility] artery (coronary [facility] disease artery Patient disease) [facility] Diabetic DKA Problem Active [facility] ketoacidos (diabetic Esme es is ketoacidos Patien t es) [facility] Hyperglyce Hyperglyce Problem Active [facility] bambi bambi [facility] Hypertensi Hypertensi Problem Active [facility] on on [facility] Pancreatit Pancreatit Problem Active [facility] is is [facility] Uncontroll Uncontroll Problem Active [facility] diabetes diabetes Patien t mellitus mellitus [facility] Allergies, Adverse Reactions, Alerts Allergy Allergy Status Severity Reaction(s) Onset Inactive Treating Comm ents Source Name Type Date Date Clinician No Known DA Active U [facility]ie 3-22 [place] 00:[facility]: d 00 [facility] No Known DA Active U [facility] Allergie 3- [place] 00:00: d 00 [facility] No Known DA Active U 2017-05 [facility] Allergie 2-31 Clear s 00:00: Mejia 00 [facility] No Known DA Active U 2017-05 [facility] Allergie 2-31 Clear s 00:00: Mejia 00 [facility] No Known DA Active U [facility] Allergie 3- [place] 00:00: e 00 [facility] NO KNOWN Drug Active Univers ALLERGIE [...] University o f Transport Non-Med 00:00:00 00:00:00 [facility] edical Branch Exposure to 2022-01-30 2022-02-09 Not sure University of SARS-CoV-2 00:00:00 20:09:00 [facility] (event) Branch Tobacco use and 2022-02-09 2022-02-09 Smokeless tobacco Un iversity of exposure 00:00:00 00:00:00 non-user [facility] Alcohol intake 2022-02-09 2022-02-09 1.71 /d University of 00:00:00 00:00:00 [facility] Tobacco Comment 2022-02-09 2022-02-09 quit 15 years ago Un iversity of 00:00:00 00:00:00 [facility] Education 2021-10-27 2021-10-27 9 University of 00:00:00 00:00:00 [facility] History SDOH 2020-03-16 2020-03-16 3 University o f Financial 00:00:00 00:00:00 [facility] Alcohol Comment 2019-07-18 2019-07-18 quit drinking Univ anika of 00:00:00 00:00:00 2013 but drank [facility] heavily before Branch this Sex Ass[birth year] At [birth year] LUCY Sanders 00:00:00 00:00:00 [facility] Smoking Status Start Date Stop Date Source Ex-smoker 2022-02-09 00:00:00 2022-02-09 00:00:00 Universi ty of [facility] Medications Ordered Filled Start Stop Current Ordering Indication Dosage Frequency Signature Comments Components Source Medication Medication Date Date Medication? Clinician (SIG) Name Name aspirin 81 2021- No [id number] 81mg Take 1 Univers mg chewable 9-23 10-24 tablet by it y of tablet 00:00: 04:59 mouth [place] 00 :00 daily with Medical breakfast Branch for 30 days. glipiZIDE 5 2021- No [id number] 5mg Take 1 Univers mg tablet 9-23 10-24 tablet by ity of 00:00: 04:59 mouth in [place] 00 :00 the Medical morning Branch for 30 days. levothyroxi 2021- No [id number] 50ug Take 1 Univers ne 50 mcg 9-23 10-24 tablet by ity of tablet 00:00: 04:59 mouth [place] 00 :00 every Medical morning Branch for 30 days. lisinopriL 2021- No [id number] 2.5mg Take 1 Univers 2.5 mg 9-23 10-24 tablet by ity of tablet 00:00: 04:59 mouth in [place] 00 :00 the Medical morning Branch for 30 days. spironolact 2021- No [id number] 25mg Take 1 Univers one 25 mg 9-23 10-24 tablet by ity of tablet 00:00: 04:59 mouth in [place] 00 :00 the Medical morning Branch for 30 days. tamsulosin 2021- No [id number] .4mg Take 1 Univers 0.4 mg 24 9-23 10-24 capsule by ity of hr capsule 00:00: 04:59 mouth in [facility] 00 :00 the Medical morning Branch for 30 days. aspirin 81 2021- No [id number] 81mg Take 1 Univers mg chewable 9-23 10-24 tablet by it y of tablet 00:00: 04:59 mouth [place] 00 :00 daily with [facility] breakfast Branch for 30 days. glipiZIDE 5 2021- No [id number] 5mg Take 1 Univers mg tablet 9-23 10-24 tablet by ity of 00:00: 04:59 mouth in [place] 00 :00 the [facility] morning [place] for 30 days. levothyroxi 2021- No [id number] 50ug Take 1 Univers ne 50 mcg 9-23 10-24 tablet by ity of tablet 00:00: 04:59 mouth [place] 00 :00 every [facility] morning Branch for 30 days. lisinopriL 2021- No [id number] 2.5mg Take 1 Univers 2.5 mg 9-23 10-24 tablet by ity of tablet 00:00: 04:59 mouth in [place] 00 :00 the [facility] morning [place] for 30 days. spironolact 2021- No [id number] 25mg Take 1 Univers one 25 mg 9-23 10-24 tablet by ity of tablet 00:00: 04:59 mouth in [place] 00 :00 the [facility] morning [place] for 30 days. tamsulosin 2021- No [id number] .4mg Take 1 Univers 0.4 mg 24 9-23 10-24 capsule by ity of hr capsule 00:00: 04:59 mouth in [facility] 00 :00 the Medical morning Branch for 30 days. sulfur 2021- No [id number] 5mL 5 mL, Unive rs hexafluorid 02-10 Intravenou i ty of e microsphr 16:30: 16:30 s, ONCE, 1 [place] (LUMASON) 00 :00 dose, On Medica l injection 5 [place] Branch mL 02/10/22 at 1130, Routine
hospitality team member approving Restricted medication : NINFA CASTILLO traMADoL 0 Yes 50mg 50 mg, Univers (ULTRAM) 02-10 Oral, ity of tablet 50 15:10: Q6HPRN, [place] mg 57 Starting Medical on [facility] Branch 02/10/22 at 1010, Until Discontinu ed, Routine, Pain (scale 7-10) lisinopriL 0 Yes 2.5mg 2.5 mg, Uni vers (PRINIVIL,Z 02-10 Oral, ity of ESTRIL) 14:00: DAILY, [place] tablet 2.5 00 First dose Med ical mg on [facility] Branch 02/10/22 at 0900, Until Discontinu ed, Routine glipiZIDE Yes 5mg 5 mg, Univers (GLUCOTROL) 02-10 Oral, ity of tablet 5 mg 14:00: DAILY, [place] 00 First dose Medical on [facility] Branch 02/10/22 at 0900, Until Discontinu ed, Routine enoxaparin 0 Yes 30mg 30 mg, Unive rs (LOVENOX) 02-10 Subcutaneo ity of injection 14:00: [place], DAILY, [place] 30 mg 00 First dose Medical on [facility] Branch 02/10/22 at 0900, Until Discontinu ed, Routine levothyroxi Yes 50ug 50 mcg, Uni vers ne 02-10 Oral, ity of (SYNTHROID) 11:00: QAM-0600, [place] tablet 50 00 First dose Medi uriel mcg on [facility] Branch 02/10/22 at 0600, Until Discontinu ed, Routine morpHINE (2 2021- No 2mg 2 mg, Slow Univers mg/mL) 02-10 IV Push, ity of injection 2 08:45: 08:01 ONCE, 1 [place] mg 00 :00 dose, On Medical [facility] 02/10/22 at 0345, Routine furosemide 0 Yes 20mg 20 mg, IV Un [place] (LASIX) 02-10 Push, Q8H, ity of injection 04:15: First dose [place] 20 mg 00 on [facility] Medical 02/09/22 at Branch 2315, Until Discontinu ed, Routine spironolact 2021-0 Yes 25mg 25 mg, Univ ers one 02-10 Oral, ity of (ALDACTONE) 04:15: DAILY, [place] tablet 25 00 First dose Medi uriel mg on Mon [place] 02/09/22 at 2315, Until Discontinu ed, Routine atorvastati 2021-0 Yes 40mg 40 mg, Univ ers n (LIPITOR) 02-10 Oral, QHS, it y of tablet 40 04:15: First dose [place] mg 00 on Mon [facility] 02/09/22 at Branch 2315, Until Discontinu ed, [...] dose Med ical 12.5 mg on Mon [place] 02/09/22 at 2315, Until Discontinu ed, Routine tamsulosin 2021-0 Yes .4mg 0.4 mg, Univ ers (FLOMAX) 02-10 Oral, ity of capsule 0.4 04:15: DAILY, [place] mg 00 First dose Medical on Mon [place] 02/09/22 at 2315, Until Discontinu ed, Routine gabapentin 2021-0 Yes 300mg 300 mg, Uni vers (NEURONTIN) 02-10 Oral, BID, it y of capsule 300 04:15: First dose [place] mg 00 on Mon [facility] 02/09/22 at Branch 2315, Until Discontinu ed, Routine sennosides 2021-0 Yes 8.6mg 8.6 mg, Uni vers (SENOKOT) 02-10 Oral, BID, ity of tablet 8.6 04:15: First dose [place] mg 00 on Mon [facility] 02/09/22 at Branch 2315, Until Discontinu ed, Routine docusate 2021-0 Yes 100mg 100 mg, Unive rs (COLACE) 02-10 Oral, BID, ity o f capsule 100 04:15: First dose [place] mg 00 on Mon [facility] 02/09/22 at Branch 2315, Until Discontinu ed, [...] has mental status changes. atorvastati 2021- No [id number] 40mg Take 1 Univers n 40 mg - 10-23 tablet by ity of tablet 00:00: 04:59 mouth at [place] 00 :00 bedtime Medical for 30 Branch days. metoprolol 2021- No [id number] 12.5mg Take 0.5 Univers succinate 9-22 10-23 tablets by ity of XL 25 mg 24 00:00: 04:59 mouth in [place] hr tablet 00 :00 the Medical morning Branch for 30 days. atorvastati 2021- No [id number] 40mg Take 1 Univers n 40 mg -22 10-23 tablet by ity of tablet 00:00: 04:59 mouth at [place] 00 :00 bedtime Medical for 30 Branch days. metoprolol 2021- No [id number] 12.5mg Take 0.5 Univers succinate 02-10-23 tablets [...] at 0215, 1 mL gabapentin 2021- No [id number] 300mg Take 1 Univers 300 mg 11-05 capsule by ity of capsule 00:00: 04:59 mouth 3 [place] 00 :00 (three) Medical times Branch daily for 10 days. gabapentin 2021- No [id number] 300mg Take 1 Univers 300 mg 11-05 capsule by ity of capsule 00:00: 04:59 mouth 3 [place] 00 :00 (three) Medical times Branch daily for 10 days. aspirin 81 2021- No [id number] 81mg Take 1 Univers mg chewable 6-16 07-17 tablet by it y of tablet 00:00: 04:59 mouth [place] 00 :00 daily for Medical 30 days. [place] aspirin 81 2021- No [id number] 81mg Take 1 Univers mg chewable 6-16 07-17 tablet by it y of tablet 00:00: 04:59 mouth [place] 00 :00 daily for Medical 30 days. [place] aspirin 81 2021- No [id number] 81mg Take 1 Univers mg chewable 6-16 07-17 tablet by it y of tablet 00:00: 04:59 mouth [place] 00 :00 daily for Medical 30 days. [place] proMETHazin Yes [id number] 25mg Take 1 Univers e 25 mg 6-03 tablet by ity of tablet 00:00: mouth [place] 00 every 6 Medical (six) Branch hours as needed for Nausea and Vomiting (N/V). proMETHazin Yes [id number] 25mg Take 1 Univers e 25 mg 6-03 tablet by ity of tablet 00:00: mouth [place] 00 every 6 Medical (six) Branch hours as needed for Nausea and Vomiting (N/V). proMETHazin 2-0 Yes [id number] 25mg Take 1 Univers e 25 mg 6-03 tablet by ity of tablet 00:00: mouth [place] 00 every 6 Medical (six) Branch hours as needed for Nausea and Vomiting (N/V). proMETHazin 2-0 Yes [id number] 25mg Take 1 Univers e 25 mg 6-03 tablet by ity of tablet 00:00: mouth [place] 00 every 6 Medical (six) Branch hours as needed for Nausea and Vomiting (N/V). proMETHazin 2021-0 Yes [id number] 25mg Take 1 Univers e 25 mg 6-03 tablet by ity of tablet 00:00: mouth [place] 00 every 6 Medical (six) Branch hours as needed for Nausea and Vomiting (N/V). proMETHazin 2021-0 Yes [id number] 25mg Take 1 Univers e 25 mg 6-03 tablet by ity of tablet 00:00: mouth [place] 00 every 6 Medical (six) Branch hours as needed for Nausea and Vomiting (N/V). fenofibrate 2021-2021- No [id number] 134mg Take 1 Univers micronized -19 12- capsule by it y of 134 mg 00:00: 04:59 mouth [place] capsule 00 :00 daily for Medical 30 days. Branch lisinopriL 2021-2- No [id number] 2.5mg Take 1 Univers 2.5 mg 10-19- tablet by ity of tablet 00:00: 04:59 mouth [place] 00 :00 daily for Medical 30 days. Branch fenofibrate 2021-0 2- No [id number] 134mg Take 1 Univers micronized -19 12- capsule by it y of 134 mg 00:00: 04:59 mouth [place] capsule 00 :00 daily for Medical 30 days. Branch lisinopriL 2021-0 2- No [id number] 2.5mg Take 1 Univers 2.5 mg -19 12- tablet by ity of tablet 00:00: 04:59 mouth [place] 00 :00 daily for Medical 30 days. Branch fenofibrate 2021-0 2- No [id number] 134mg Take 1 Univers micronized 5-19 12- capsule by it y of 134 mg 00:00: 04:59 mouth [place] capsule 00 :00 daily for Medical 30 days. [place] lisinopriL 2021- No [id number] 2.5mg Take 1 Univers 2.5 mg 10-19- tablet by ity of tablet 00:00: 04:59 mouth [place] 00 :00 daily for Medical 30 days. Branch furosemide 2021- No [id number] 40mg Take 1 Univers 40 mg 5-30 [...] s: atrial fibrillati on calcitrioL 2021- No [id number] .5ug Take 1 Univers 0.5 mcg -18 11-30 capsule by ity o f capsule 00:00: 04:59 mouth [place] 00 :00 daily for Medical 30 days. Branch insulin NPH 2021- No [id number] 5U inject 5 Univers (HUMULIN N 5-30 -30 Units ity of NPH U-100 00:00: 04:59 under the [place] INSULIN) 00 :00 skin every Medic al 100 unit/mL evening Branc h injection for 30 days. atorvastati 2021- No [id number] 40mg Take 1 Univers n 40 mg 5-30 -30 tablet by ity of tablet 00:00: 04:59 mouth at [place] 00 :00 bedtime Medical for 30 Branch days. carvediloL 2021- No [id number] 3.125mg Take 1 Univers 3.125 mg 5-30 -30 tablet by ity o f tablet 00:00: 04:59 mouth 2 [place] 00 :00 (two) Medical times Branch daily with meals for 30 days. furosemide 2021- No [id number] 40mg Take 1 Univers 40 mg 5-30 -30 tablet by ity of tablet 00:00: 04:59 mouth [place] 00 :00 every Medical morning Branch and evening for 30 days. apixaban 5 2021- No [id number] 5mg Take 1 Univ ers mg tablet 5-30 06-30 tablet by ity of 00:00: 04:59 mouth 2 [place] 00 :00 (two) Medical times [place] daily for 30 days. Indication s: atrial fibrillati on calcitrioL 2021- No [id number] .5ug Take 1 Univers 0.5 mcg 5-30 06-30 capsule by ity o f capsule 00:00: 04:59 mouth [place] 00 :00 daily for Medical 30 days. Branch insulin NPH 2021- No [id number] 5U inject 5 Univers (HUMULIN N 5-30 06-30 Units ity of NPH U-100 00:00: 04:59 under the [place] INSULIN) 00 :00 skin every Medic al 100 unit/mL evening Branc h injection for 30 days. atorvastati 2021- No [id number] 40mg Take 1 Univers n 40 mg 5-30 06-30 tablet by ity of tablet 00:00: 04:59 mouth at [place] 00 :00 bedtime Medical for 30 Branch days. carvediloL 2021- No [id number] 3.125mg Take 1 Univers 3.125 mg 5-30 06-30 tablet by ity o f tablet 00:00: 04:59 mouth 2 [place] 00 :00 (two) Medical times [place] daily with meals for 30 days. furosemide 2021- No [id number] 40mg Take 1 Univers 40 mg 5-30 06-30 tablet by ity of tablet 00:00: 04:59 mouth [place] 00 :00 every Medical morning Branch and evening for 30 days. apixaban 5 2021- No [id number] 5mg Take 1 Univ ers mg tablet 5-30 06-30 tablet by ity of 00:00: 04:59 mouth 2 [place] 00 :00 (two) Medical times [place] daily for 30 days. Indication s: atrial fibrillati on calcitrioL 2021- No [id number] .5ug Take 1 Univers 0.5 mcg 5-30 06-30 capsule by ity o f capsule 00:00: 04:59 mouth [place] 00 :00 daily for Medical 30 days. Branch insulin NPH 2021- No [id number] 5U inject 5 Univers (HUMULIN N 5-30 06-30 Units ity of NPH U-100 00:00: 04:59 under the [place] INSULIN) 00 :00 skin every Medic al 100 unit/mL evening Branc h injection for 30 days. atorvastati 2021- No [id number] 40mg Take 1 Univers n 40 mg 5-30 06-30 tablet by ity of tablet 00:00: 04:59 mouth at [place] 00 :00 bedtime Medical for 30 Branch days. carvediloL 2021- No [id number] 3.125mg Take 1 Univers 3.125 mg 5-30 06-30 tablet by ity o f tablet 00:00: 04:59 mouth 2 [place] 00 :00 (two) Medical times Branch daily with meals for 30 days. metFORMIN Yes [id number] 500mg Take 1 U nivers 500 mg 3-02 tablet by ity of tablet 00:00: mouth [place] ([facility]) Medical times Branch daily with meals. metFORMIN Yes [id number] 500mg Take 1 U nivers 500 mg 3-02 tablet by ity of tablet 00:00: mouth [place] (two) Medical times Branch daily with meals. metFORMIN Yes [id number] 500mg Take 1 U nivers 500 mg 3-02 tablet by ity of tablet 00:00: mouth 2 [place] (two) Medical times Branch daily with meals. metFORMIN Yes [id number] 500mg Take 1 U nivers 500 mg 3-02 tablet by ity of tablet 00:00: mouth [place] (two) Medical times Branch daily with meals. metFORMIN Yes [id number] 500mg Take 1 U nivers 500 mg 3-02 tablet by ity of tablet 00:00: mouth [place] (two) Medical times Branch daily with meals. metFORMIN Yes [id number] 500mg Take 1 U nivers 500 mg 3-02 tablet by ity of tablet 00:00: mouth 2 [place] (two) Medical times Branch daily with meals. albuterol Yes [id number] 2{puff} Inhale 2 Univers 90 2-21 Puffs 2 ity of mcg/actuati 00:00: (two) [place] on inhaler 00 times Medical daily. Branch collagenase Yes [id number] Use as Univers 250 2-21 directed ity of unit/gram 00:00: by office Juan J as ointment 00 Medical Branch cyclobenzap Yes [id number] 10mg Take 1 Univers rine 10 mg 2-21 tablet by ity of tablet 00:00: mouth 2 [place] 00 (two) Medical times Branch daily as needed for Muscle Spasms. dextrometho Yes [id number] 10mL Take 10 mL Univers rphan-guaif 2-21 [...] for Pain (scale 4-6). melatonin 3 Yes [id number] 3mg Take 1 Univers mg tablet 2-21 tablet by ity o f 00:00: mouth at [place] 00 bedtime. Medical Branch ondansetron Yes [id number] 4mg Take 1 Univers 4 mg 2-21 tablet by ity of disintegrat 00:00: mouth [place] ing tablet 00 every 8 Medica l (eight) Branch hours as needed for Nausea and Vomiting (N/V). albuterol Yes [id number] 2{puff} Inhale 2 Univers 90 2-21 Puffs 2 ity of mcg/actuati 00:00: (two) [place] on inhaler 00 times Medical daily. Branch collagenase Yes [id number] Use as Univers 250 2-21 directed ity of unit/gram 00:00: by office [place] J as ointment 00 Medical Branch cyclobenzap Yes [id number] 10mg Take 1 Univers rine 10 mg 2-21 tablet by ity of tablet 00:00: mouth 2 [place] 00 (two) Medical times Branch daily as needed for Muscle Spasms. dextrometho 0 Yes [id number] 10mL Take 10 mL Univers rphan-guaif 2-21 [...] for Pain (scale 4-6). melatonin 3 Yes [id number] 3mg Take 1 Univers mg tablet 2-21 tablet by ity o f 00:00: mouth at [place] 00 bedtime. Medical Branch ondansetron Yes [id number] 4mg Take 1 Univers 4 mg 2-21 tablet by ity of disintegrat 00:00: mouth [place] ing tablet 00 every 8 Medica l (eight) Branch hours as needed for Nausea and Vomiting (N/V). albuterol Yes [id number] 2{puff} Inhale 2 Univers 90 2-21 Puffs 2 ity of mcg/actuati 00:00: (two) [place] on inhaler 00 times Medical daily. Branch collagenase Yes [id number] Use as Univers 250 2-21 directed ity of unit/gram 00:00: by office [place] J as ointment 00 Medical Branch cyclobenzap Yes [id number] 10mg Take 1 Univers rine 10 mg 2-21 tablet by ity of tablet 00:00: mouth 2 [place] 00 (two) Medical times Branch daily as needed for Muscle Spasms. dextrometho Yes [id number] 10mL Take 10 mL Univers rphan-guaif 2-21 [...] for Pain (scale 4-6). melatonin 3 Yes [id number] 3mg Take 1 Univers mg tablet 2-21 tablet by ity o f 00:00: mouth at [place] 00 bedtime. Medical Branch ondansetron Yes [id number] 4mg Take 1 Univers 4 mg 2-21 tablet by ity of disintegrat 00:00: mouth [place] ing tablet 00 every 8 Medica l (eight) Branch hours as needed for Nausea and Vomiting (N/V). albuterol Yes [id number] 2{puff} Inhale 2 Univers 90 2-21 Puffs 2 ity of mcg/actuati 00:00: (two) [place] on inhaler 00 times Medical daily. Branch collagenase 0 Yes [id number] Use as Univers 250 2-21 directed ity of unit/gram 00:00: by office [place] J as ointment 00 Medical Branch cyclobenzap Yes [id number] 10mg Take 1 Univers rine 10 mg 2-21 tablet by ity of tablet 00:00: mouth 2 [place] 00 (two) Medical times Branch daily as needed for Muscle Spasms. melatonin 3 Yes [id number] 3mg Take 1 Univers mg tablet 2-21 tablet by ity o f 00:00: mouth at [place] 00 bedtime. Medical Branch ondansetron Yes [id number] 4mg Take 1 Univers 4 mg 2-21 tablet by ity of disintegrat 00:00: mouth [place] ing tablet 00 every 8 Medica l (eight) Branch hours as needed for Nausea and Vomiting (N/V). albuterol Yes [id number] 2{puff} Inhale 2 Univers 90 2-21 Puffs 2 ity of mcg/actuati 00:00: (two) [place] on inhaler 00 times Medical daily. Branch collagenase Yes [id number] Use as Univers 250 2-21 directed ity of unit/gram 00:00: by office [place] J as ointment 00 Medical Branch cyclobenzap Yes [id number] 10mg Take 1 Univers rine 10 mg 2-21 tablet by ity of tablet 00:00: mouth 2 [place] 00 (two) Medical times Branch daily as needed for Muscle Spasms. melatonin 3 Yes [id number] 3mg Take 1 Univers mg tablet 2-21 tablet by ity o f 00:00: mouth at [place] 00 bedtime. Medical Branch ondansetron Yes [id number] 4mg Take 1 Univers 4 mg 2-21 tablet by ity of disintegrat 00:00: mouth [place] ing tablet 00 every 8 Medica l (eight) Branch hours as needed for Nausea and Vomiting (N/V). albuterol Yes [id number] 2{puff} Inhale 2 Univers 90 2-21 Puffs 2 ity of mcg/actuati 00:00: (two) [place] on inhaler 00 times Medical daily. Branch collagenase Yes [id number] Use as Univers 250 2-21 directed ity of unit/gram 00:00: by office [place] J as ointment 00 Medical Branch cyclobenzap Yes [id number] 10mg Take 1 Univers rine 10 mg 2-21 tablet by ity of tablet 00:00: mouth 2 [place] 00 (two) Medical times Branch daily as needed for Muscle Spasms. melatonin 3 Yes [id number] 3mg Take 1 Univers mg tablet 2-21 tablet by ity o f 00:00: mouth at [place] 00 bedtime. Medical Branch ondansetron Yes [id number] 4mg Take 1 Univers 4 mg 2-21 tablet by ity of disintegrat 00:00: mouth [place] ing tablet 00 every 8 Medica l (eight) Branch hours as needed for Nausea and Vomiting (N/V). dextrometho 2021- No [id number] 10mL Take 10 mL Univers rphan-guaif 07-12 [...] 00:00: 00:00 Patient 00 :00 [facility] Diflunisal Diflunisal 2015- No Todd Wynn [...] St Bisulfate Bisulfate [facility] (Plavix) 75 (Plavix) 75 P [...] [facility] Mg Tablet Mg Tablet Day [facility] Patient Medical [facility] Hydrocodone Hydrocodone Yes [address] Bit/Acetami Bit/Acetami Hours as [facility] nophen nophen needed for [place] ([place] [facility] [facility] 10-325 10-325 Center Tablet) 1 [...] 2.5 Mg [facility] Tablet Tablet Patient [facility] Metformin Metformin Yes [address] [facility] Day [facility] (Glucophage (Glucophage P atient ) 1,000 Mg ) 1,000 Mg Med ical Tablet Tablet Center Methadone Methadone Yes 5 Every [address] H[facility] 5 Mg Hcl 5 Mg Hours [facility] Tablet Tablet Patient [facility] Metoprolol Metoprolol Yes [address] Tartrate 25 Tartrate 25 L ukes Mg Tablet Mg Tablet Patie nt [facility] Nitroglycer Nitroglycer Yes As Needed [facility] in in [facility] (Nitrostat) (Nitrostat) P atient 0.4 Mg 0.4 Mg Medical Tab.subl Tab.subl Center Omeprazole Omeprazole Yes [address] 20 Mg 20 Mg [facility] Capsule.dr Lind. [facility] Simvastatin Simvastatin Yes [address] 80 Mg 80 Mg [facility] Tablet Tablet Patient [facility] Tamsulosin Tamsulosin Yes Daily [facility] Hcl 0.4 Mg Hcl 0.4 Mg Esme es Cap.er.24h Cap.er.24h [facility] Tramadol Tramadol Yes [address] Hcl Hcl Daily as [facility] (Ultram) 50 (Ultram) 50 needed for Patient Mg Tablet Mg Tablet [facility] al Center Venlafaxine Venlafaxine Yes [address] [facility]cl 75 Mg Hcl 75 Mg [facility] Tab Tab Patient [facility] Albuterol Albuterol 2017- No [address] [facility] Sulfate Sulfate 10-15 Day as [facility] (Proair Hfa (Proair Hfa 00:00 needed for Patient Inhaler*) Inhaler*) :00 [facility] 8.5 Gm Inh, 8.5 Gm Inh, Of Breath Center 1 Inh 1 Inh Inhalation Inhalation Dicyclomine Dicyclomine 2017- No [address] Hcl 20 Mg Hcl 20 Mg 10-15 Daily Esme es Tablet, 20 Tablet, 20 00:00 Pa tient Mg Oral Mg Oral :00 [facility] Insulin Insulin 2017- No 40 7AM [...] Capsule., Capsule., 00:00 Patient :00 [facility] Center Insulin Insulin 90 Twice A [facility] [...] Oral 25 Mg Oral :00 [facility] Albuterol Albuterol As Needed [facility] Sulfate Sulfate 11-23 as needed Esme es (Ventolin (Ventolin 00:00 for Manjula ent Hfa) 18 Gm Hfa) 18 Gm :00 [facility] Medical Hfa.aer.ad, Hfa.aer.ad, Of [facility] 90 Mcg 90 Mcg Inhalation Inhalation Dicyclomine Dicyclomine Twice A [facility] 10 Mg Hcl 10 Mg 11-23 Day Luke s Capsule, 10 Capsule, 10 00:00 Patient Mg Oral Mg Oral :00 [facility] Methocarbam Methocarbam [address] [...] 10 Mg Oral 10 Mg Oral :00 [facility] ical Center Gabapentin Gabapentin 2014- No [address] 300 Mg 300 Mg 07- Times A [facility] Capsule, Capsule, 00:00 Day Patien t 600 Mg Oral 600 Mg Oral :00 [facility] Pregabalin Pregabalin 2013- No 150 Twice [...] Immunizations Ordered Filled Immunization Date Status Comments [facility] e Immunization Name Name Influenza Virus 2021-01-16 Completed Universit y of Vaccine 00:00:00 [facility] Influenza Virus 2021-01-16 Completed Universit y of Vaccine 00:00:00 [facility] Influenza Virus 2021-01-16 Completed Universit y of Vaccine 00:00:00 [facility] Influenza Virus 2021-01-16 Completed Universit y of Vaccine 00:00:00 [facility] Influenza Virus 2021-01-16 Completed Universit y of Vaccine 00:00:00 [facility] Influenza Virus 2021-01-16 Completed Universit y of Vaccine 00:00:00 [facility] SARS-COV-2 COVID-19 2020-10-16 Completed Unive rsity of PEDRO/J&J VACCINE 00:00:00 [facility] SARS-COV-2 COVID-19 2020-10-16 Completed Unive rsity of PEDRO/J&J VACCINE 00:00:00 [facility] SARS-COV-2 COVID-19 2020-10-16 Completed Unive rsity of PEDRO/J&J VACCINE 00:00:00 [facility] SARS-COV-2 COVID-19 2020-10-16 Completed Unive rsity of PEDRO/J&J VACCINE 00:00:00 [facility] SARS-COV-2 COVID-19 2020-10-16 Completed Unive rsity of PEDRO/J&J VACCINE 00:00:00 [facility] SARS-COV-2 COVID-19 2020-10-16 Completed Unive rsity of PEDRO/J&J VACCINE 00:00:00 [facility] Influenza Virus 2020-01-21 Completed Universit y of Vaccine 00:00:00 [facility] Influenza Virus 2020-01-21 Completed Universit y of Vaccine 00:00:00 [facility] Influenza Virus 2020-01-21 Completed Universit y of Vaccine 00:00:00 [facility] Influenza Virus 2020-01-21 Completed Universit y of Vaccine 00:00:00 [facility] Influenza Virus 2020-01-21 Completed Universit y of Vaccine 00:00:00 [facility] Influenza Virus 2020-01-21 Completed Universit y of Vaccine 00:00:00 [facility] Zoster Vaccine 2019-07-17 Completed University of Recombinant 00:00:00 [facility] Zoster Vaccine 2019-07-17 Completed University of Recombinant 00:00:00 [facility] Zoster Vaccine 2019-07-17 Completed University of Recombinant 00:00:00 [facility] Zoster Vaccine 2019-07-17 Completed University of Recombinant 00:00:00 [facility] Zoster Vaccine 2019-07-17 Completed University of Recombinant 00:00:00 [facility] Zoster Vaccine 2019-07-17 Completed University of Recombinant 00:00:00 [facility] Td 2019-03-29 Completed University of 00:00:00 [facility] Td 2019-03-29 Completed University of 00:00:00 [facility] Td 2019-03-29 Completed University of 00:00:00 [facility] Td 2019-03-29 Completed University of 00:00:00 [facility] Td 2019-03-29 Completed University of 00:00:00 [facility] Td 2019-03-29 Completed University of 00:00:00 [facility] Influenza Virus 2018-02-18 Completed Universit y of Vaccine 00:00:00 [facility] Pneumococcal 2018-02-18 Completed University o f Polysaccharide, 00:00:00 [place] [facility] PPSV23 (PNEUMOVAX) [place] Influenza Virus 2018-02-18 Completed Universit y of Vaccine 00:00:00 [facility] Pneumococcal 2018-02-18 Completed University o f Polysaccharide, 00:00:00 [place] [facility] PPSV23 (PNEUMOVAX) [place] Influenza Virus 2018-02-18 Completed Universit y of Vaccine 00:00:00 [facility] Pneumococcal 2018-02-18 Completed University o f Polysaccharide, 00:00:00 [place] [facility] PPSV23 (PNEUMOVAX) Branch Influenza Virus 2018-02-18 Completed Universit y of Vaccine 00:00:00 [facility] Pneumococcal 2018-02-18 Completed University o f Polysaccharide, 00:00:00 [place] [facility] PPSV23 (PNEUMOVAX) Branch Influenza Virus 2018-02-18 Completed Universit y of Vaccine 00:00:00 [facility] Pneumococcal 2018-02-18 Completed University o f Polysaccharide, 00:00:00 [place] [facility] PPSV23 (PNEUMOVAX) Branch Influenza Virus 2018-02-18 Completed Universit y of Vaccine 00:00:00 [facility] Pneumococcal 2018-02-18 Completed University o f Polysaccharide, 00:00:00 [place] [facility] PPSV23 (PNEUMOVAX) Branch Influenza Virus 2008-03-19 Completed Universit y of Vaccine 00:00:00 [facility] Pneumococcal 2008-03-19 Completed University o f Polysaccharide, 00:00:00 [place] [facility] PPSV23 (PNEUMOVAX) Branch Influenza Virus 2008-03-19 Completed Universit y of Vaccine 00:00:00 [facility] Pneumococcal 2008-03-19 Completed University o f Polysaccharide, 00:00:00 [facility] ical PPSV23 (PNEUMOVAX) Branch Influenza Virus 2008-03-19 Completed Universit y of Vaccine 00:00:00 [facility] Pneumococcal 2008-03-19 Completed University o f Polysaccharide, 00:00:00 [place] [facility] PPSV23 (PNEUMOVAX) Branch Influenza Virus 2008-03-19 Completed Universit y of Vaccine 00:00:00 [facility] Pneumococcal 2008-03-19 Completed University o f Polysaccharide, 00:00:00 [place] [facility] PPSV23 (PNEUMOVAX) Branch Influenza Virus 2008-03-19 Completed Universit y of Vaccine 00:00:00 [facility] Pneumococcal 2008-03-19 Completed University o f Polysaccharide, 00:00:00 [place] [facility] PPSV23 (PNEUMOVAX) Branch Influenza Virus 2008-03-19 Completed Universit y of Vaccine 00:00:00 [facility] Pneumococcal 2008-03-19 Completed University o f Polysaccharide, 00:00:00 [place] [facility] PPSV23 (PNEUMOVAX) [place] Vital Signs Vital Name Observation Time Observation Value Comments Source Systolic blood 2022-02-10 105 mm[Hg] University of pressure 16:35:00 [place] [facility] Diastolic blood 2022-02-10 57 mm[Hg] University o f pressure 16:35:00 [facility] Branch Heart rate 2022-02-10 65 /min University of 16:35:00 [facility] Body temperature 2022-02-10 36.22 Sandy University of 16:35:00 [facility] Respiratory rate 2022-02-10 18 /min University of 16:35:00 [facility] Oxygen saturation 2022-02-10 98 /min University of in Arterial blood 16:35:00 [place] [facility] uriel by Pulse oximetry Branch Body weight 2022-02-10 74.98 kg University of 08:16:00 [facility] Branch BMI 2022-02-10 25.89 kg/m2 University of 08:16:00 [facility] Body height 2022-02-10 170.2 cm Height before University of 01:18:00 Bilat BKA [facility] Systolic blood 2021-11-09 124 mm[Hg] University of pressure 23:00:00 [facility] Diastolic blood 2021-11-09 69 mm[Hg] University o f pressure 23:00:00 [facility] Heart rate 2021-11-09 72 /min University of 23:00:00 [facility] Respiratory rate 2021-11-09 25 /min University of 23:00:00 [facility] Oxygen saturation 2021-11-09 98 /min University of in Arterial blood 23:00:00 [facility] uriel by Pulse oximetry Branch Body temperature 2021-11-09 37.22 Sandy University of 20:28:39 [facility] Body height 2021-11-09 170.2 cm University of 20:16:00 [facility] Branch Body weight 2021-11-09 71.215 kg University of 20:16:00 [facility] BMI 2021-11-09 24.59 kg/m2 University of 20:16:00 [facility] Branch Systolic blood 2021-11-05 134 mm[Hg] University of pressure 10:00:00 [facility] Diastolic blood 2021-11-05 78 mm[Hg] University o f pressure 10:00:00 [facility] Heart rate 2021-11-05 81 /min University of 10:00:00 [facility] Body temperature 2021-11-05 36.28 Sandy University of 08:10:00 [facility] Respiratory rate 2021-11-05 18 /min [facility] 08:00:00 [facility] Oxygen saturation 2021-11-05 99 /min [facility] Arterial blood 08:00:00 [facility] by Pulse oximetry [place] Body height 2021-11-05 170.2 cm [facility] 05:48:00 [facility] Body weight 2021-11-05 71.215 kg [facility] 05:48:00 [facility] BMI 2021-11-05 24.59 kg/m2 [facility] 05:48:00 [facility] Procedures Procedure Date / Time Performing Clinician Source Performed INSURANCE CORRESPONDENCE 2022-04-19 06:01:00 Doctor Unassigned, [facility] [facility] [place] TRANSTHORACIC ECHO (TTE) 2022-02-10 13:16:00 Martah Rowe [facility] COMPLETE W/ CONTRAST Medical Bra nch PHOSPHORUS 2022-02-10 10:22:00 Martha Rowe [facility] MAGNESIUM 2022-02-10 10:22:00 Jae marilu [facility] TROPONIN I 2022-02-10 10:22:00 Martha Rowe [facility] COMP. METABOLIC PANEL 2022-02-10 10:22:00 Martha Rowe [facility] ([id number]) [facility] CBC WITH DIFF 2022-02-10 10:22:00 Martha Rowe [facility] CREATINE KINASE 2022-02-10 04:37:00 Martha Rowe [facility] URIC ACID 2022-02-10 04:37:00 Martha Rowe [facility] FERRITIN SERUM 2022-02-10 04:37:00 Martha Rowe [facility] FOLATE 2022-02-10 04:37:00 Jae marilu [facility] TROPONIN I 2022-02-10 04:37:00 Martha Rowe [facility] THYROID STIMULATING 2022-02-10 04:37:00 Martha Rowe [facility] HORMONE Medical Branch LIPID PANEL ([id number])(TOTAL 2022-02-10 04:37:00 Martha Rowe [facility] CHOLESTEROL, Medical Branch TRIGLYCERIDES, HDL) IRON PANEL 2022-02-10 04:37:00 Martha Rowe [facility] GLYCOSYLATED HEMOGLOBIN 2022-02-10 04:37:00 Martha Rowe [facility] (A1C) [facility] N-TERMINAL PRO-BNP 2022-02-10 04:37:00 Martha Rowe [facility] VITAMIN D, 25-OH 2022-02-10 04:37:00 Jae marilu [facility] COVID-19 (ID NOW RAPID 2022-02-10 04:37:00 Martha Rowe [facility] TESTING) [facility] B-TYPE NATRIURETIC FACTOR 2022-01-30 18:10:00 CH I [facility] (BNP) Center XR CHEST 1 VW 2021-11-09 21:07:00 Troy Ku Mckenzie [facility] POCT GLUCOSE (AUTOMATED) 2021-11-09 20:25:00 Troy Ku [facility] MAGNESIUM 2021-11-09 20:19:00 Troy Ku Mckenzie [facility] TROPONIN I 2021-11-09 20:19:00 Troy Ku Mckenzie [facility] COMP. METABOLIC PANEL 2021-11-09 20:19:00 Troy Ku [facility] ([id number]) [facility] CBC WITH DIFF 2021-11-09 20:19:00 Troy Ku Mckenzie [facility] N-TERMINAL PRO-BNP 2021-11-09 20:19:00 Troy Ku [facility] XR CHEST 1 VW 2021-11-05 06:38:35 Mihaela Martin [facility] [id number] 2020-08-11 00:00:00 ALDMO [facility] [id number] 2020-08-11 00:00:00 ALDMO [facility] [id number] 2020-08-11 00:00:00 ALDMO [facility] [id number] 2020-08-11 00:00:00 ALDMO [facility] Computed tomography 2017-10-24 00:00:00 BROOKE ALEXIS LUCY [facility] Patient angiography of brain Medical Agustin ter CT angiography of chest 2017-10-23 00:00:00 KHAI WAHL V C [facility] Patient Medical Center Computed tomography of 2017-10-23 00:00:00 KHAI WAHL V [facility] Patient brain without radiopaque Medical Center contrast [...] Clinicians Facility Department ID 2021-06-17 Outpatient [id number] ENCKY MALDONADO [id number] [facility] 10:24:03 [id number] [facility] 2021-06-17 Outpatient 3 [id number] ENCKY REF [id number] [facility] 10:22:04 [id number] [facility] 2021-03-22 Emergency [facility] [id number] Univers 15:25:20 ity of [facility] 2021-03-22 Emergency [facility] [id number] Univers 10:56:41 ity of [facility] 2021-03-21 Emergency [facility] [id number] Univers 18:15:08 ity of [facility] 2021-03-21 Emergency [facility] [id number] Univers 17:18:22 ity of [facility] 2021-03-21 Emergency [facility] [id number] Univers 12:58:19 ity of [facility] 2021-03-21 Emergency [facility] [id number] Univers 04:06:22 ity of [facility] 2021-03-21 Emergency [facility] [id number] Univers 00:12:27 ity of [facility] 2021-03-20 Emergency [facility] [id number] Univers 00:55:44 ity of [facility] 2021-03-19 Emergency [facility] [id number] Univers 17:28:47 ity of [facility] 2021-03-19 Emergency [facility] [id number] Univers 03:16:03 ity of [facility] 2021-03-18 Emergency [facility] [id number] Univers 13:56:50 ity of [facility] 2020-08-23 Inpatient HCACL FERNANDO [id number] [facility] 17:41:00 84 [facility] 2020-04-04 Inpatient Marko, HCAMN HCAMN [id number] [facility] 14:40:00 Edward 33 [facility] 2019-10-15 Inpatient RADHA Shah, HCAPM ENDO [id number] [facility] 15:30:00 Finn [id number] [facility] 2022-04-19 2022-04-19 Orders Doctor JOSE [id number] Univers 00:00:00 00:00:00 Only Unassigned, [place] [id number] ity of [place] [facility] [id number] Juan J as [id number] [facility] 009 Branch 2022-02-11 2022-02-11 Transition CLAUDETTE HardingTanya [id number] Univers 00:00:00 00:00:00 of Care Josselyntoni DUQUE [id number] it y [id number] [id number] [facility] 403 Branch 2022-02-09 2022-02-10 Outpatient U JAE [facility] DARIUS [id number] Univers 19:53:00 13:45:00 ADMARILU ity of [facility] 2022-02-09 2022-02-10 Hospital Ana Maria Meza [facility] [id number] Univers 19:53:00 13:45:00 Encounter Martha Rowe [id number] ity of [place] [id number] [place] [facility] [id number] [facility] 081 Branch 2022-01-30 2022-01-30 [facility] [id number] 00:00:00 00:00:00 Requisitio [facility] 2022-01-30 2022-01-30 Lab [facility] [id number] 00:00:00 00:00:00 Requisitiji [facility] 2021-11-09 2021-11-09 Emergency X HEBERT, K [facility] ERT [id number] Univers 15:15:00 18:32:00 ity of [facility] 2021-11-09 2021-11-09 Emergency Troy Ku [facility] [id number] Univers 15:15:00 18:32:00 Mckenzie PEREZ [id number] i ty of [place] [id number] [facility] [id number] [place] 674144 Branch 2021-11-05 2021-11-05 Emergency [facility] [id number] Univers 00:44:00 06:53:00 MIHAELA baugh [facility] 2021-11-05 2021-11-05 Emergency [facility] [id number] Univers 00:44:00 06:53:00 Mihaela PEREZ [id number] ity of [facility] [id number] [facility] [id number] [facility] 084 Branch 2021-11-04 2021-11-04 Transition Feliciano CLAUDETTETanya 1.2.840.114 [id number] Univers 00:00:00 00:00:00 of Jennifer [place] [id number] it y of [place] [id number] [facility] [id number] [facility] 403 Branch 2021-11-02 2021-11-03 Outpatient X BRAYDON [facility] DARIUS [id number] Univers 22:35:00 15:46:00 OC baugh [facility] 2021-11-02 2021-11-03 Emergency Curtis Xavier [facility] 1.2.840. 114 [id number] Univers 22:35:00 15:46:00 Oc Bryson [id number] ity of [facility] [id number] [facility] [id number] [facility] 081 Branch 2021-11-02 2021-11-03 Outpatient X BRAYDON [facility] DARIUS [id number] Univers 22:35:00 15:46:00 OC baugh [facility] 2021-11-01 2021-11-01 Transition LATRICE Feliciano 1.2.840.114 [id number] Univers 00:00:00 00:00:00 of Care Micaela [place] [id number] it y of [place] [id number] [facility] [id number] [facility] 403 Branch 2021-10-27 2021-10-29 [facility] [id number] Univers 17:41:00 14:03:00 ANA MARIA vashti [facility] 2021-10-27 2021-10-29 Emergency Jameson Mejia [facility] 1.2.840. 114 [id number] Univers 17:41:00 14:03:00 Lizett Gerardo [id number] ity of [place] [id number] [facility] [id number] 2021-10-27 2021-10-29 Outpatient [facility] [id number] Univers 17:41:00 14:03:00 ANA MARIA vashti [facility] 2021-10-21 2021-10-22 Emergency X [facility] [id number] Univers 20:24:00 04:18:00 JYOTI vashti [facility] 2021-10-21 2021-10-22 Emergency [facility] [id number] Univers 20:24:00 04:18:00 Jyoti PEREZ [id number] i Joy [id number] [facility] [id number] [facility] 084 Branch 2021-10-20 2021-10-20 Transition LATRICE Aleman 1.2.840.114 [id number] Univers 00:00:00 00:00:00 of Care Rico DU[place] [id number] [id number] [id number] [facility] 403 Branch 2021-10-15 2021-10-18 Outpatient X DERRICK [facility] DARIUS [id number] Univers 16:42:00 13:52:00 ANA MARIA singhvashti [facility] 2021-10-15 2021-10-18 Emergency Jameson Mejia [facility] 1.2.840. 114 [id number] Univers 16:42:00 13:52:00 Ana Maria Meza [id number] ity [id number] [id number] [facility] 081 Branch 2021-07-23 2021-07-23 Transition LATRICE Farooq 1.2.840.114 [id number] Univers 00:00:00 00:00:00 of Care Marcella [place] [id number] i [id number] [id number] [address] 2021-07-19 2021-07-22 Inpatient X [facility] DARIUS [id number] Univers 09:10:00 17:00:00 GEOFFREY baugh [facility] 2021-07-19 2021-07-22 [facility] Brandyn Dumont [facility] 1.2.840.1 [id number] Univers 09:10:00 17:00:00 Encounter Geoffrey Hill [facility] [id number] ity of [id number] [id number] [facility] 109 Branch (CLC) 2021-07-21 2021-07-21 Outpatient Wong_H VFP VFP [id number] Village 06:58:00 06:58:00 [id number] Family Practic e 2021-07-13 2021-07-13 Transition LATRICE Aleman 1.2.840.114 [id number] Univers 00:00:00 00:00:00 of Care Rico DUQUE [id number] [id number] [id number] [place] [address] Branch 2021-06-28 2021-07-12 Inpatient X REBECCA [facility] DAR[facility]US [id number] Univers 10:43:00 18:25:00 AMBIKA singhvashti [facility] 2021-06-28 2021-07-12 [facility] Jameson Mejia [facility] 1.2.840.1 [id number] Univers 10:43:00 18:25:00 Encounter Troy Ku [id number] ity of Ambika Fernandez [place] [id number] [facility] [id number] [facility] 081 Branch 2021-02-15 2021-02-15 Outpatient [facility] [id number] Univers 15:00:00 15:00:00 ALECIA [facility] 2021-01-11 2021-01-11 Outpatient R [facility] [id number] Univers 10:45:00 10:45:00 GINA baugh o anuj [facility] 2021-01-05 2021-01-05 Transition Latrice Aleman 1.2.840.114 [id number] Univers 00:00:00 00:00:00 of Care Rico Duque [id number] ity of [place] [id number] [facility] [id number] [facility] 403 Branch 2021-01-01 2021-01-04 [facility] Wayne Can [facility] 1.2.840.1 [id number] Univers 14:18:00 18:10:00 Encounter Lizett Gerardo [id number] ity [id number] [id number] [facility] 081 Branch 2021-01-01 2021-01-01 Orders Doctor JOSE 1.2.840.114 [id number] Univers 00:00:00 00:00:00 Only Unassigned, [place] [id number] ity of [place] [facility] [id number] Juan J as [id number] [facility] 009 Branch 2020-12-17 2020-12-17 Transition Latrice Harding 1.2.840.114 [id number] Univers 00:00:00 00:00:00 of Care Josselyn [place] [id number] it y of [place] [id number] [facility] [id number] [facility] 403 Branch 2020-12-14 2020-12-16 Emergency Jyoti Cedeno S [facility] 1.2.840.1 [id number] Univers 17:50:00 17:46:00 Ana Maria Meza 350.1.13.10 ity of [place] 4.2.7.2.686 [facility] [phone] [facility] 081 Branch 2020-11-16 2020-11-16 Orders Doctor JOSE 1.2.840.114 [id number] Univers 00:00:00 00:00:00 Only Unassigned, CAROLINA 350.1.13.10 ity of [place] [facility] 4.2.7.2.686 [facility] [phone] [facility] 009 Branch 2020-10-30 2020-11-05 Inpatient [facility] [id number] [facility] 16:50:00 13:52:00 Fede 41993 [facility] 2020-10-31 2020-10-31 Outpatient ANNEL Carrera LABO [id number] [facility] 08:22:00 08:22:00 Fede 73 [facility] 2020-10-28 2020-10-28 Hospital Radiology [facility] 1.2.840.114 [id number] Univers 08:30:17 23:59:00 Encounter Sera 350.1.13.10 ity of [place] 4.2.7.2.686 [facility] [phone] [facility] 807 Branch 2020-10-28 2020-10-28 Hospital Radiology [facility] 1.2.840.114 [id number] 08:30:17 23:59:00 Encounter [place] 350.1.13.10 [place] 4.2.7.2.686 [place] [id number] 807 2020-10-28 2020-10-28 Outpatient R RADIOLOGY [facility] [id number] Univers 00:00:00 00:00:00 ity of [facility] 2020-10-12 2020-10-12 [facility] 1.2.840.114 [id number] Univers 14:02:10 14:50:48 Visit Bryan Sera 350.1.13.10 i [place] [phone] De dical [facility] 204 [facility] 2020-10-12 2020-10-12 [facility] [id number] Univers 14:00:00 14:50:48 BRYAN ity [facility] 2020-10-12 2020-10-12 Outpatient R [facility] [id number] Univers 14:00:00 14:00:00 [facility] 2020-10-06 2020-10-06 Office [facility] 1.2.840.114 [id number] Univers 10:43:51 11:59:29 Visit Gina Perez 350.1.13.10 ity [facility] [place] [phone] De dical [address] 2020-10-06 2020-10-06 Office [facility] 1.2.840.114 [id number] 10:43:51 11:59:29 Visit Gina Perez 350.1.13.10 [place] 4.2.7.2.686 Professio [phone] [address] 2020-10-06 2020-10-06 Outpatient [facility] [id number] Univers 10:30:00 10:30:00 GINA baugh o f [facility] 2020-10-06 2020-10-06 Orders Doctor GARCIA 1.2.840.114 [id number] Univers 00:00:00 00:00:00 Only Unassigned, CAROLINA 350.1.13.10 ity of [place] [facility] 4.2.7.2.686 Juan J as [phone] [address] 2020-09-28 2020-09-28 Emergency [facility] 1.2.840.114 [id number] Univers 17:28:00 21:08:00 Óscar Anuj Perez 350.1.13.10 ity of [place] 4.2.7.2.686 [facility] [phone] [facility] 084 Branch 2020-09-28 2020-09-28 Transition Latrice French 1.2.840.114 [id number] Univers 00:00:00 00:00:00 of Care Gilda Duque 350.1.13.10 it y of [place] [phone] [facility] 403 Branch 2020-09-23 2020-09-26 [facility] Juan José Wayne [facility] 1.2.840.1 14 [id number] Univers 13:50:00 18:28:00 Encounter Ambika Fernandez 350.1.13.10 ity of [place] 4.2.7.2.686 [facility] [phone] [place] 674141 [place] 2020-09-23 2020-09-26 Inpatient X GABRIELEALEJANDRA [facility] [id number] Univers 13:50:00 18:28:00 AMBIKA baugh [facility] 2020-09-22 2020-09-22 Outpatient R [facility] [id number] Univers 09:45:00 09:45:00 GINA palacio [facility] 2020-09-10 2020-09-10 Outpatient R [facility] [id number] Univers 16:15:00 16:15:00 BRYAN baugh [facility] 2020-09-09 2020-09-09 Transition Latrice Aleman 1.2.840.114 [id number] Univers 00:00:00 00:00:00 of Care Rico Duque 350.1.13.10 it[place] of [place] [phone] [facility] 403 [place] 2020-09-08 2020-09-08 Outpatient R [facility] [id number] Univers 08:30:00 08:30:00 GINA palacio [facility] 2020-09-02 2020-09-07 [facility] Jose Guy [facility] 1.2.840.114 [id number] Univers 16:46:00 18:45:00 [facility] 350. 1.13.10 ity of [place] 4.2.7.2.686 [place] Kaylyn Calvin [phone] [address] ([facility]) 2020-08-26 2020-08-26 Office Jani [facility] 1.2.840.114 [id number] Univers 10:44:06 11:14:06 Visit [facility] 350.1.13.10 it y of [place] [phone] [address] Office Building 2020-08-26 2020-08-26 Outpatient R THA GUNTER [facility] [id number] Univers 10:30:00 10:30:00 ity of [facility] 2020-08-25 2020-08-25 Outpatient R IVANA [facility] [id number] Univers 10:00:00 10:00:00 GINA palacio [facility] 2020-08-24 2020-08-24 Outpatient R YENI [facility] [id number] Univers 09:00:00 09:00:00 DEIDRE baugh [facility] 2020-08-21 2020-08-21 Office [facility] 1.2.840.114 [id number] Univers 08:43:52 09:13:46 Visit Gina Perez 350.1.13.10 ity of [place] [facility] [phone] De dical [place] [address] Branch Building 2020-08-21 2020-08-21 Outpatient Tim HEATH [facility] [id number] Univers 08:30:00 08:30:00 GINA palacio [facility] 2020-08-10 2020-08-14 Inpatient ANNEL CareyCL INTE.02 [id number] [facility] 09:09:00 18:56:00 Johnie Lunsford [facility] 2020-08-11 2020-08-11 Outpatient R [facility] [id number] Univers 09:15:00 09:15:00 GINA palacio [facility] 2020-08-07 2020-08-07 Outpatient R [facility] [id number] Univers 10:00:00 10:00:00 GINA palacio [facility] 2020-07-27 2020-08-06 [facility] Jameson Mejia 1.2.840.1 14 [id number] Univers 12:13:00 17:15:00 Encounter Minnie Cardona 350.1.13.10 ity of [facility] 4.2.7.2.686 [place] Drew Noriega [phone] [facility] Johnie Skinner 090 [place] 2020-07-27 2020-08-06 Inpatient JOHNEI SKINNER [facility] [id number] Univers 12:13:00 17:15:00 ity of [facility] 2020-07-24 2020-07-24 Outpatient R [facility] [id number] Univers 13:00:00 13:00:00 GINA palacio [facility] 2020-07-21 2020-07-21 Transition Latrice Aleman 1.2.840.114 [id number] Univers 00:00:00 00:00:00 of Care Rico Duque 350.1.13.10 ity of [place] 4.2.7.2.686 Noe beckett [phone] [place] [address] Branch 2020-07-10 2020-07-20 [facility] Janeth Leal 1.2.84 0.114 [id number] Univers 19:24:00 21:51:00 Encounter Oc Bryson 350.1.13.10 ity of Janeth Leal [facility] 4.2.7.2.686 [place] Minnie Cardona [phone] Medical Lisa Marroquin [address] 2020-07-17 2020-07-17 Outpatient R [facility] [id number] Univers 10:00:00 10:00:00 JOSE itvashti [facility] 2020-07-10 2020-07-10 Outpatient R IVANA [facility] [id number] Univers 08:45:00 08:45:00 GINA amauri o f [facility] 2020-06-15 2020-06-15 Telephone [facility] 1.2.877.731 [id number] Univers 00:00:00 00:00:00 Jose Perez 350.1.13.10 i ty of [place] [facility] [phone] De dical nal 204 [address] Building 2020-06-11 2020-06-11 Office [facility] 1.2.840.114 [id number] Univers 13:43:55 13:58:55 Visit [facility] 350.1.13.10 it y of [place]2.[place] [facility] [phone] Med ical [facility] 188 Branch 2020-06-11 2020-06-11 Outpatient R JANKI [facility] [id number] Univers 13:30:00 13:30:00 JOSE baugh [facility] 2020-06-03 2020-06-03 Transition LoveClaudette bennetttanya 1.2.840.114 [id number] Univers 00:00:00 00:00:00 of Care Rico Duque 350.1.13.10 ity of [place] [phone] [facility] 403 Branch 2020-05-29 2020-06-02 [facility] Jameson Mejia [facility] 1.2.840.1 14 [id number] Univers 09:12:00 16:02:00 Encounter Lizett Gerardo 350.1.13.10 ity of [place] 4.2.7.2.686 [facility] [phone] [facility] 081 Branch 2020-05-29 2020-06-02 Inpatient X JAE [facility] [id number] Univers 09:12:00 16:02:00 MARTHA baugh [facility] 2020-05-29 2020-05-29 Outpatient R JANKI [facility] [id number] Univers 10:15:00 10:15:00 JOSE baugh [facility] 2020-04-23 2020-04-23 Office [facility] 1.2.840.114 [id number] Univers 13:48:18 14:03:18 Visit [facility] 350.1.13.10 it y of [place] Center - [phone] [facility] 188 [place] 2020-04-23 2020-04-23 Outpatient R [facility] [id number] Univers 13:30:00 13:30:00 JOSE baugh [facility] 2020-04-23 2020-04-23 Orders Doctor JOSE 1.2.840.114 [id number] Univers 00:00:00 00:00:00 Only Unassigned, [place]INA 350.1.13.10 ity of [place] [facility] 4.2.7.2.686 Juan J as [phone] [facility] 009 [place] 2020-04-09 2020-04-09 Office [facility] 1.2.840.114 [id number] Univers 13:58:45 14:13:45 Visit [facility] 350.1.13.10 it y of [place] 4.2.7.2.686 [facility] - [phone] Med [address] 2020-04-09 2020-04-09 Outpatient R [facility] [id number] Univers 14:00:00 14:00:00 JOSE vashti [facility] 2020-03-27 2020-03-27 Transition Latrice Aleman 1.2.840.114 [id number] Univers 00:00:00 00:00:00 of Care Rico Duque 350.1.13.10 it[place] of [place] [phone] [facility] 403 Branch 2020-03-15 2020-03-26 Hospital Jameson Mejia 1.2.840.1 14 [id number] Univers 23:48:00 18:02:00 Encounter Kandis Hough 350.1.13.10 ity of [place] [facility] 4.2.7.2.68 6 [place] [id number] [facility] 098 Branch 2020-03-18 2020-03-18 Anesthesia Caio Najera Nancy 1. 2.840.114 [id number] Univers 13:52:00 16:42:00 Stephanie Franks 350.1.13.10 ity of [facility] 4.2.7.2.686 Juan J as [phone] [facility] 103 Branch 2020-02-06 2020-02-06 Transition Latrice Aleman 1.2.840.114 [id number] Univers 00:00:00 00:00:00 of Care Rico Zelayay 350.1.13.10 it[place] of [place].2.[place] [phone] [facility] 403 [address] 2020-02-03 2020-02-05 [facility] Óscar Hermosillo [facility] 1.2.8 40.114 [id number] Univers 16:55:00 20:40:00 Encounter Martha Rowe 350.1.13.10 ity of [place] 4.[place].2.[place] [id number] [address] 2020-01-17 2020-01-17 Outpatient R [facility] [id number] Univers 13:30:00 13:30:00 SENDIL ity of [facility] 2019-12-02 2019-12-02 Outpatient R [facility] [id number] Univers 15:00:00 15:00:00 ity of [facility] 2019-11-16 2019-11-21 [facility] Lopez Velazquez [facility] 1.2.840 .114 [id number] Univers 16:35:23 14:12:00 Encounter Heather Hermosillo 350.1.13.1 0 ity of [place] 4.2.7.2.[place] [phone] [address] 2019-09-17 2019-09-18 [facility] 1.2.544.010 [id number] Univers 20:30:04 00:41:00 Valery Perez 350.1.13.10 ity of [place] 4.[place].7.2.[place] [phone] [place] 674144 [place] 2019-09-17 2019-09-18 Emergency X ALFIE, [facility] ERT [id number] Univers 20:30:04 00:41:00 WAKILI ity [facility] 2019-09-05 2019-09-05 Outpatient R [facility] [id number] Univers 14:00:00 14:00:00 SENDIL ity [facility] 2019-09-05 2019-09-05 Telemedici [facility] 1.2.840.114 [id number] Univers 08:17:17 08:47:17 ne Visit Sendil Hannah Perez 350.1.13.10 ity of [place] 4.[place].2.[place] [phone] De dic[address] 2019-09-05 2019-09-05 Telephone [facility] 1.2.174.800 [id number] Univers 00:00:00 00:00:00 Sendil Hannah Perez 350.1.13.10 ity of [place].2.[place] [phone] De dicnm nal [address] [place] [address] 2019-09-03 2019-09-03 Outpatient R ANNA [facility] [id number] Univers 10:30:00 10:30:00 SENDIL ity [facility] 2019-08-20 2019-08-20 Telephone [facility] 1.2.021.595 [id number] Univers 00:00:00 00:00:00 Nika SHAW 350.1.13.10 ity of [place].2.[place] [facility] [phone] De dical [address] [place] 2019-08-19 2019-08-19 Refill Nancy Lee 1.2.840.114 [id number] Univers 00:00:00 00:00:00 Lola Figueroa 350.1.13.10 it y of Hospital 4.2.7.2.686 [place] J as [phone] [facility] 090 [place] 2019-08-16 2019-08-16 Refill Nancy Lee 1.2.840.114 [id number] Univers 00:00:00 00:00:00 Lola Carolina 350.1.13.10 it y of [facility] 4.2.7.2.686 Juan J as [phone] [facility] 090 Branch 2019-08-15 2019-08-15 Emergency Luis, [facility] 1.2.840.114 [id number] Univers 11:58:21 15:28:00 Demarcus Perez 350.1.13.10 i ty of [place] 4[place].2.[place] [phone] [facility] 084 Branch 2019-08-15 2019-08-15 Emergency X LUIS, [facility] ERT [id number] Univers 11:58:21 15:28:00 DEMARCUS ity [facility] 2019-08-15 2019-08-15 Case AnnaJOSE 1.2.840.114 [id number] Univers 00:00:00 00:00:00 Management Ninfa FIGUEROA 350.1.13.10 ity [facility] 4.2.7.2.686 [place] J as [phone] [facility] 008 Branch 2019-08-15 2019-08-15 Telephone Anna [facility] 1.2.986.951 [id number] Univers 00:00:00 00:00:00 Ninfa Perez 350.1.13.10 ity of [place] 4.[place].2.[place] [facility] [phone] [facility] 059 [facility] 2019-08-12 2019-08-12 Transition Latrice Ramirez 1.2.840.114 [id number] Univers 00:00:00 00:00:00 of Care Joan George 350.1.13.10 it[place] of [place].2.[place] [phone] [facility] 403 [address] 2019-08-06 2019-08-09 Emergency Wayne Can [facility] 1.2.840. 114 [id number] Univers 14:06:47 15:19:00 Lizett Gerardo 350.1.13.10 ity of [place] 4.2.[place].2.[place] [id number] [facility] 081 Branch 2019-08-06 2019-08-09 Outpatient X HUMAIRA, [facility] [id number] Univers 14:06:47 15:19:00 LIZETT ity of [facility] 2019-08-06 2019-08-06 Outpatient R TRAVIS, [facility] [id number] Univers 13:30:00 13:30:00 RICHMOND singhy o f [facility] 2019-08-06 2019-08-06 Outpatient R TRAVIS, [facility] [id number] Univers 11:00:00 11:00:00 RICHMOND singhy o f [facility] 2019-08-06 2019-08-06 Outpatient R TRAVIS, [facility] [id number] Univers 11:00:00 11:00:00 JUNIEJULIANN baugh o [facility] 2019-08-06 2019-08-06 Orders Doctor JOSE 1.2.840.114 [id number] Univers 00:00:00 00:00:00 Only Unassigned, [place] 350.1.13.10 ity of [place] [facility] 4.2.7.2.686 Juan J as [id number] [facility] 009 Branch 2019-07-19 2019-07-19 Transition Latrice French 1.2.840.114 [id number] Univers 00:00:00 00:00:00 of Care Gilda Duque 350.1.13.10 it y of [place].2.[place] [id number] [facility] 403 [address] 2019-07-17 2019-07-18 Emergency Valery Carrillo S Nancy 1.2.840 .114 [id number] Univers 21:36:10 21:05:00 Kendra Vaca [place] 350.1.13.1 0 ity of Hospital 4.2.7.2.686 [place] J as [phone] [facility] 090 Branch 2019-07-17 2019-07-18 Outpatient X SUZANNE-TIP TAREQ [facility] [id number] Univers 21:36:10 21:05:00 NOLA TAREQ ity of [facility] 2019-07-03 2019-07-03 Transition Latrice French 1.2.840.114 [id number] Univers 00:00:00 00:00:00 of Care Gilda Duque 350.1.13.10 it y of [place] 4.[place].2.[place] [id number] [facility] 403 [address] 2019-07-01 2019-07-01 Transition Latrice French 1.2.840.114 [id number] Univers 00:00:00 00:00:00 of Care Gilda Duque 350.1.13.10 it y of [place].2.[place] [id number] [facility] 403 [address] 2019-06-27 2019-06-27 Transition Latrice French 1.2.840.114 [id number] Univers 00:00:00 00:00:00 of Care Gilda Duque 350.1.13.10 it y of [place].2.[place] [phone] [facility] 403 [place] 2019-06-24 2019-06-26 Inpatient X [facility] [id number] Univers 14:51:01 18:37:00 MICHAEL ity of [facility] 2019-06-24 2019-06-26 Hospital Janeth Leal 1.2.84 0.114 [id number] Univers 14:51:01 18:37:00 Encounter Michael Shirley 350.1.1 3.10 ity of [facility] 4.2.7.2.686 Juan J as [phone] [facility] 090 Branch 2019-02-06 2019-02-06 Telephone JOSE Bhatt 1.2.840.114 [id number] Univers 00:00:00 00:00:00 Cortney FIGUEROA 350.1.13.10 i ty of [facility] 4.2.7.2.686 Juan J as [phone] [facility] 008 Branch 2019-02-05 2019-02-05 Emergency [facility] 1.2.367.552 [id number] Univers 17:30:29 21:52:00 Jyoti Perez 350.1.13.10 i ty of [place] 4[place].2.[place] [phone] [place] 674144 Branch 2019-01-30 2019-01-30 Transition Latrice Quevedo 1.2.840.114 [id number] Univers 00:00:00 00:00:00 of Care Rhonda Duque 350.1.13.10 it [place].2.[place] [id number] [facility] 403 Branch 2019-01-24 2019-01-29 [facility] Wayne Can 1.2.840.1 14 [id number] Univers 16:01:37 14:55:00 Encounter Dennis Finley 350.1.13.10 ity of [facility] 4.2.7.2.686 Juan J as [phone] [place] 674149 Branch 2019-01-22 2019-01-22 Transition Claudette Quevedotanya 1.2.840.114 [id number] Univers 00:00:00 00:00:00 of Care Rhonda Duque 350.1.13.10 it [place].2.[place] [id number] [facility] 403 [address] 2019-01-16 2019-01-19 [facility] Carlos Allen 1.2.840.11 [id number] Univers 23:52:03 14:36:00 Encounter Jae Martha Figueroa 350.1.13.10 ity of Most Maliajuanjomargareth [facility] 4.2.7.2.686 [place] [phone] [place] [address] Branch 2017-10-23 2017-10-27 Discharged 1 [facility] [id number] 17:29:00 16:54:00 Inpatient ALEXIS 90 [place] [facility] 2017-04-03 2017-04-04 [facility] [id number] 23:17:00 03:53:00 Emergency LAIRD 58 [facility] 2017-03-05 2017-03-09 Discharged ER PHILIP [facility] [id number] 06:54:00 10:58:00 Inpatient NICHELLE 44 [place] (obs) Patient [facility] 2017-01-04 2017-01-05 Discharged [facility] [id number] 10:33:00 18:56:00 Inpatient 63 [place] sujit [facility] Orders Doctor JOSE 1.2.840.114 [id number] Univers 00:00:00 00:00:00 Only Unassigned, [place] 350.1.13.10 ity of [place] [facility] 4.2.7.2.686 Juan J as [phone] [facility] uriel 009 Branch Results Test Description Test Time Test Comments Results Result Comments Source Transthoracic echo (TTE) 2022-02-10 17:43:07 Test Item Value Reference Range Interpretation Comme nts Height (test code = 4864487244) in Weight (test code = 3412601861) lbs Systolic BP (test code = 3033765010) mmHg Diastolic BP (test code = 8020444988) mmHg Heart Rate (test code = 4876260955) bpm BSA (test code = 4794557961) 1.86 m2 Ao root diam (test code = 2553699315) 3.10 cm Aortic root (test code = 5382145810) 3.1 cm Ao root annulus (test code = 3.1 cm 9085919415) LVOT diameter (test code = 1.83 cm 0672160350) LVOT area (test code = 3647543809) 2.60 cm2 LVIDD (test code = 8947574075) 4.80 cm Left Ventricular End Diastolic Volume 107.5 mL by Teichholz Method (test code = 0600715) IVS (test code = 6344750521) 1.35 cm Interventricular Septum Diastolic 1.35 cm Thickness by 2D (test code = 4637318) LVPWD (test code = 0056931196) 1.35 cm PW (test code = 7460598292) 1.35 cm 0.6-1.1 EF(Teich) (test code = 1859280723) 30.10 % LVIDS (test code = 0449170622) 4.10 cm Left Ventricular End Systolic Volume 75.1 mL by Teichholz Method (test code = 9703028) FS (test code = 6463600419) 14 % EF - 2D (test code = 14818280) 30.10 % LA size (test code = 9540254360) 4.1 cm TR Peak Haile (test code = 0929071566) 232.4 cm/s Triscuspid Valve Regurgitation Peak mmHg Gradient (test code = 7629226964) LAV(MOD-sp4) (test code = 4257520442) 103.10 mL E wave decelartion time (test code = 0.15 s 0177924180) MV stenosis pressure 1/2 time (test 44.6 ms code = 7518358777) MV Peak E Haile (test code = 110.2 cm/s 3095570790) MV Peak A Haile (test code = 28.7 cm/s 4912897961) E/A ratio (test code = 3685984563) ratio MR max PG (test code = 4528438356) 78.70 mm[Hg] MR max haile (test code = 5974915247) 443.40 cm/s Mr max haile (test code = 0394856973) 443.4 m/s MV Prop V (test code = 9672716974) 45.00 cm/s MV E/e' septal (test code = 9.2 cm/s 0300217778) Tapse (test code = 7310237184) 1.53 cm LVOT stroke volume (test code = 41.70 cm3 1703290455) LVOT peak haile (test code = 87.2 cm/s 8859815198) LVOT mn grad (test code = 3555330511) mmHg AV LVOT peak gradient (test code = mmHg 0061867582) LVOT peak VTI (test code = 15.8 cm 0427816371) LV V1 mean (test code = 8070901045) 51.30 cm/s Aortic valve mean velocity (test code 78.3 cm/s = 5397271604) Ao peak haile (test code = 7052556232) 111.8 cm/s Ao VTI (test code = 9142863947) 21.5 cm AV area by cont VTI (test code = 1.9 cm2 0467805215) AV area peak haile (test code = 2.1 cm2 2979129136) Ao max PG (test code = 7701581458) 5.00 mm[Hg] AV peak gradient (test code = mmHg 3683817179) AV valve area (test code = 1.94 cm2 3191279295) AV mean gradient (test code = mmHg 1375782171) Radiology Study observation (narrative) (test code = 82595-9) DIANE (test code = DIANE) Table formatting [...] lateral and apex.All other segments are normal. [id number]08 Test Item Value Reference Interpretation Comments Range TROPONIN I (test 0.021 ng/mL See_Comment [Automated code = 5027766147) message] The system which generated this result [...] biotin. Lab Interpretation Normal (test code = 50102-5) [facility]50:23 Test Item Value Reference Range Interpretation Comments MAGNESIUM (test code = 9331585118) 1.7 mg/dL 1.7-2.4 Lab Interpretation (test code = Normal 60309-0) [facility] (97036)2022-02-10 11:50:22 Test Item Value Reference Range Interpretation Comments NA (test code = 138 mmol/L 135-145 3741123430) K (test code = 3.9 mmol/L 3.5-5 0694755246) CL (test code = 108 mmol/L 98-108 1984098689) CO2 TOTAL (test code = 24 mmol/L 23-31 4963951148) AGAP (test code = 2-16 9735568346) BUN (test code = 19 mg/dL 7-23 8650102846) GLUCOSE (test code = 117 mg/dL 70-110 H 8088748357) CREATININE (test code = 0.91 mg/dL 0.6-1.25 4765146378) TOTAL BILI (test code = 1.0 mg/dL 0.1-1.0 4459136714) CALCIUM (test code = 8.5 mg/dL 8.6-10.6 L 9594349880) T PROTEIN (test code = 6.4 g/dL 6.3-8.2 4961586423) ALBUMIN (test code = 3.4 g/dL 3.5-5 L 6100083273) ALK PHOS (test code = 177 U/L 34-122 H 4098256928) ALTv (test code = 24 U/L 5-50 1742-6) AST(SGOT) (test code = 38 U/L 13-40 9508329328) eGFR (test code = mL/min/1.73m2 0726793191) DIANE (test code = DIANE) Association of [...] tests). Lab Interpretation Abnormal (test code = 15403-5) [facility]50:22 Test Item Value Reference Range Interpretation Comments PHOSPHORUS (test code = 2818809750) 5.1 mg/dL 2.5-5 H Lab Interpretation (test code = Abnormal 83586-5) [facility] WITH [id number] 11:19:02 Test Item Value Reference Range Interpretation [...] RDW-SD (test code = 48.0 fL 38.5-51.6 47411-8) RDW-CV (test code = 14.2 % 12.1-15.4 788-0) PLT (test code = See_Comment [Automated 777-3) message] The sy stem which generated this result transmitted reference range : 150 - 328 10*3/ ?L. The reference r batsheva was not used to interpret this result as normal/abnormal . MPV (test code = 10.2 fL 9.8-13 82482-8) NRBC/100 WBC (test See_Comment [Automat ed code = 2241201531) message] The system which generated this result transmitted reference range : 0.0 - 10.0 /100 WBCs. The refer ence range was not u sed to interpret th is result as normal/abnormal . NRBC x10^3 (test code See_Comment [Auto mated = 4773988825) message] The s ystem which generated this result transmitted reference range : 10*3/?L. The reference range was not used to interpret this result as normal/abnormal . GRAN MAT (NEUT) % 68.5 % (test code = 770-8) IMM GRAN % (test code 0.40 % = 3739349802) LYMPH % (test code = 19.0 % 736-9) MONO % (test code = 8.3 % 5905-5) EOS % (test code = 3.4 % 713-8) BASO % (test code = 0.4 % 706-2) GRAN MAT x10^3(ANC) 3.65 10*3/uL 1.99-6.95 (test code = 7141238042) IMM GRAN x10^3 (test 0-0.06 code = 5452461582) LYMPH x10^3 (test code 1.01 10*3/uL 1.09-3.23 L = 731-0) MONO x10^3 (test code 0.44 10*3/uL 0.36-1.02 = 742-7) EOS x10^3 (test code = 0.18 10*3/uL 0.06-0.53 711-2) BASO x10^3 (test code 0.01-0.09 = 704-7) Lab Interpretation Abnormal (test code = 93885-6) [facility] (BNP)2022-01-30 23:33:12 Test Item Value Reference Range Interpretation Comments BNP (test code = 70880-9) 443 pg/mL 0-100 H DIANE (test code = DIANE) Caving Guide ID - ADRY Lab Interpretation (test Abnormal code = 60874-5) [facility] 23:33:12 Test Item Value Reference Range Interpretation Comments BNP (test code = 64233-7) 443 pg/mL 0-100 H DIANE (test code = DIANE) Caving Guide ID - ADRY Lab Interpretation (test Abnormal code = 46065-6) [facility]2022-01-30 23:33:12 Test Item Value Reference Range Interpretation Comments BNP (test code = 11265-5) 443 pg/mL 0-100 H DIANE (test code = DIANE) Caving Guide ID - ADRY Lab Interpretation (test Abnormal code = 75209-4) [facility]22-01-30 23:33:12 Test Item Value Reference Range Interpretation Comments BNP (test code = 93107-7) 443 pg/mL 0-100 H DIANE (test code = DIANE) Caving Guide ID - ADRY Lab Interpretation (test Abnormal code = 64830-3) [facility]2022-01-30 23:33:12 Test Item Value Reference Range Interpretation Comments BNP (test code = 10212-8) 443 pg/mL 0-100 H DIANE (test code = DIANE) Caving Guide ID - ADRY Lab Interpretation (test Abnormal code = 97551-0) [facility]22-01-30 23:33:12 Test Item Value Reference Range Interpretation Comments BNP (test code = 25529-9) 443 pg/mL 0-100 H DIANE (test code = DIANE) Caving Guide ID - ADRY Lab Interpretation (test Abnormal code = 34763-4) [facility]2022-01-30 23:33:12 Test Item Value Reference Range Interpretation Comments BNP (test code = 79834-7) 443 pg/mL 0-100 H DIANE (test code = DIANE) Caving Guide ID - ADRY Lab Interpretation (test Abnormal code = 51438-0) [facility]2022-01-30 23:33:12 Test Item Value Reference Range Interpretation Comments BNP (test code = 71688-1) 443 pg/mL 0-100 H DIANE (test code = DIANE) Caving Guide ID - ADRY Lab Interpretation (test Abnormal code = 28535-3) [facility]2022-01-30 23:33:12 Test Item Value Reference Range Interpretation Comments BNP (test code = 18402-0) 443 pg/mL 0-100 H DIANE (test code = DIANE) Caving Guide ID - ADRY Lab Interpretation (test Abnormal code = 21055-0) [facility]2022-01-30 23:33:12 Test Item Value Reference Range Interpretation Comments BNP (test code = 16354-2) 443 pg/mL 0-100 H DIANE (test code = DIANE) Caving Guide ID - ADRY Lab Interpretation (test Abnormal code = 17005-2) [facility]2022-01-30 23:33:12 Test Item Value Reference Range Interpretation Comments BNP (test code = 93531-3) 443 pg/mL 0-100 H DIANE (test code = DIANE) Caving Guide ID - ADRY Lab Interpretation (test Abnormal code = 32871-0) [facility]2022-01-30 23:33:12 Test Item Value Reference Range Interpretation Comments BNP (test code = 56281-5) 443 pg/mL 0-100 H DIANE (test code = DIANE) Caving Guide ID - ADRY Lab Interpretation (test Abnormal code = 18210-6) [facility]2022-01-30 23:33:12 Test Item Value Reference Range Interpretation Comments BNP (test code = 70580-8) 443 pg/mL 0-100 H DIANE (test code = DIANE) Caving Guide ID - ADRY Lab Interpretation (test Abnormal code = 25918-0) [facility]2022-01-30 23:33:12 Test Item Value Reference Range Interpretation Comments BNP (test code = 40254-3) 443 pg/mL 0-100 H DIANE (test code = DIANE) Caving Guide ID - ADRY Lab Interpretation (test Abnormal code = 55702-5) [facility]2022-01-30 23:33:12 Test Item Value Reference Range Interpretation Comments BNP (test code = 69381-1) 443 pg/mL 0-100 H DIANE (test code = DIANE) Caving Guide ID - ADRY Lab Interpretation (test Abnormal code = 74812-7) [facility]2022-01-30 23:33:12 Test Item Value Reference Range Interpretation Comments BNP (test code = 46068-7) 443 pg/mL 0-100 H DIANE (test code = DIANE) Caving Guide ID - ADRY Lab Interpretation (test Abnormal code = 17886-5) [facility]2022-01-30 23:33:12 Test Item Value Reference Range Interpretation Comments BNP (test code = 67100-6) 443 pg/mL 0-100 H DIANE (test code = DIANE) Caving Guide ID - ADRY Lab Interpretation (test Abnormal code = 35643-6) [facility] (BNP)2022-01-30 23:33:12 Test Item Value Reference Range Interpretation Comments B-TYPE NATRIURETIC PEPTIDE (BEAKER) 443 pg/mL 0-100 H (test code = 700) Caving Guide ID - ADRYTROPONIN [id number] 20:57:59 Test Item Value Reference Interpretation Comments Range TROPONIN I (test 0.017 ng/mL See_Comment [Automated code = 3770626357) message] The system which generated this result [...] biotin. Lab Interpretation Normal (test code = 59672-2) [facility] [id number] 20:54:59 Test Item Value Reference Range Interpretation Comments NT-proBNP (test code 6490 pg/mL See_Comment H [Autom ated = 3649497800) message] The system which generated this result transmitted reference range : <=125. The reference range was not used to interpret this result as normal/abnormal . DIANE (test code = DIANE) Biotin has been reported to cause a negative bias, interpret results relative to patient's use of biotin. Lab Interpretation Abnormal (test code = 43703-4) [facility]2022-[facility]-21 20:46:35 Test Item Value Reference Range Interpretation Comments MAGNESIUM (test code = 8421330970) 1.5 mg/dL 1.7-2.4 L Lab Interpretation (test code = Abnormal 71917-4) [facility]. METABOLIC PANEL (95012)2021-11-09 20:46:34 Test Item Value Reference Range Interpretation Comments NA (test code = 140 mmol/L 135-145 7655522660) K (test code = 3.9 mmol/L 3.5-5.0 7434431468) CL (test code = 111 mmol/L 98-108 H 3002380406) CO2 TOTAL (test code = 16 mmol/L 23-31 L 0519884199) AGAP (test code = 2-16 4587003421) BUN (test code = 14 mg/dL 7-23 2031971608) GLUCOSE (test code = 189 mg/dL 70-110 H 6094582654) CREATININE (test code = 0.66 mg/dL 0.60-1.25 8095971847) TOTAL BILI (test code = 0.8 mg/dL 0.1-1.5 1571901440) CALCIUM (test code = 8.3 mg/dL 8.6-10.6 L 7692134856) T PROTEIN (test code = 6.5 g/dL 6.3-8.2 2268888068) ALBUMIN (test code = 3.3 g/dL 3.5-5.0 L 2756716197) ALK PHOS (test code = 136 U/L 34-122 H 0869573363) ALTv (test code = 18 U/L 5-50 1742-6) AST(SGOT) (test code = 26 U/L 13-40 7362253216) eGFR (test code = mL/min/1.73m2 6668359296) DIANE (test code = DIANE) Association of [...] tests). Lab Interpretation Abnormal (test code = 74460-8) [facility] WITH [id number] 20:33:30 Test Item Value Reference Range Interpretation Comments WBC (test code = See_Comment [Automated 8003-2) message] The sy stem which generated this result transmitted reference range : 4.20 - 10.70 10*3/?L. The reference range was not used to interpret this result as normal/abnormal . RBC (test code = See_Comment [Automated 130-8) message] The sy stem which generated this [...] RDW-SD (test code = 45.4 fL 38.5-51.6 29067-4) RDW-CV (test code = 14.2 % 12.1-15.4 788-0) PLT (test code = See_Comment [Automated 777-3) message] The sy stem which generated this result transmitted reference range : 150 - 328 10*3/ ?L. The reference r batsheva was not used to interpret this result as normal/abnormal . MPV (test code = 9.8 fL 9.8-13.0 14067-1) NRBC/100 WBC (test See_Comment [Automat ed code = 2173528234) message] The system which generated this result transmitted reference range : 0.0 - 10.0 /100 WBCs. The refer ence range was not u sed to interpret th is result as normal/abnormal . NRBC x10^3 (test code <0.01 See_Comment [Auto mated = 2969886583) message] The s ystem which generated this result transmitted reference range : 10*3/?L. The reference range was not used to interpret this result as normal/abnormal . GRAN MAT (NEUT) % 62.3 % (test code = 770-8) IMM GRAN % (test code 0.80 % = 0040674855) LYMPH % (test code = 25.1 % 736-9) MONO % (test code = 6.7 % 5905-5) EOS % (test code = 4.7 % 713-8) BASO % (test code = 0.4 % 706-2) GRAN MAT x10^3(ANC) 4.76 10*3/uL 1.99-6.95 (test code = 0852270244) IMM GRAN x10^3 (test 0.06 10*3/uL 0.00-0.06 code = 7929751280) LYMPH x10^3 (test code 1.92 10*3/uL 1.09-3.23 = 731-0) MONO x10^3 (test code 0.51 10*3/uL 0.36-1.02 = 742-7) EOS x10^3 (test code = 0.36 10*3/uL 0.06-0.53 711-2) BASO x10^3 (test code 0.03 10*3/uL 0.01-0.09 = 704-7) Lab Interpretation Abnormal (test code = 68614-6) [facility] (AUTOMATED)2021-11-09 20:27:39 Test Item Value Reference Range Interpretation Comments POCT GLU (test code = 8286531600) 190 mg/dL 70-110 H Lab Interpretation (test code = Abnormal 47292-5) [facility] [id number] 11:52:00 Test Item Value Reference Range Interpretation Comments GLUCOSE BEDSIDE TESTING (test code = 92 mg/dL 70-110 N GLUBED) GLUCOSE BEDSIDE [id number] 08:05:00 Test Item Value Reference Range Interpretation Comments GLUCOSE BEDSIDE TESTING (test code = 62 mg/dL 70-110 L GLUBED) GLUCOSE BEDSIDE [id number] 20:40:00 Test Item Value Reference Range Interpretation Comments GLUCOSE BEDSIDE TESTING (test code 105 mg/dL 70-110 N = GLUBED) GLUCOSE BEDSIDE [id number] 17:02:00 Test Item Value Reference Range Interpretation Comments GLUCOSE BEDSIDE TESTING (test code 128 mg/dL 70-110 H = GLUBED) GLUCOSE BEDSIDE [id number] 16:37:00 Test Item Value Reference Range Interpretation Comments GLUCOSE BEDSIDE TESTING (test code 105 mg/dL 70-110 N = GLUBED) GLUCOSE BEDSIDE [id number] 08:17:00 Test Item Value Reference Range Interpretation Comments GLUCOSE BEDSIDE TESTING (test code = 88 mg/dL 70-110 N GLUBED) GLUCOSE BEDSIDE [id number] 19:45:00 Test Item Value Reference Range Interpretation Comments GLUCOSE BEDSIDE TESTING (test code 115 mg/dL 70-110 H = GLUBED) GLUCOSE BEDSIDE [id number] 18:13:00 Test Item Value Reference Range Interpretation Comments GLUCOSE BEDSIDE TESTING (test code = 74 mg/dL 70-110 N GLUBED) GLUCOSE BEDSIDE [id number] 17:29:00 Test Item Value Reference Range Interpretation Comments GLUCOSE BEDSIDE TESTING (test code = 44 mg/dL 70-110 LL GLUBED) GLUCOSE BEDSIDE [id number] 12:26:00 Test Item Value Reference Range Interpretation Comments GLUCOSE BEDSIDE TESTING (test code = 96 mg/dL 70-110 N GLUBED) GLUCOSE BEDSIDE [id number] 08:21:00 Test Item Value Reference Range Interpretation Comments GLUCOSE BEDSIDE TESTING (test code = 77 mg/dL 70-110 N GLUBED) GLUCOSE BEDSIDE [id number] 20:12:00 Test Item Value Reference Range Interpretation Comments GLUCOSE BEDSIDE TESTING (test code = 91 mg/dL 70-110 N GLUBED) GLUCOSE BEDSIDE [id number] 16:42:00 Test Item Value Reference Range Interpretation Comments GLUCOSE BEDSIDE TESTING (test code 106 mg/dL 70-110 N = GLUBED) GLUCOSE BEDSIDE [id number] 11:49:00 Test Item Value Reference Range Interpretation Comments GLUCOSE BEDSIDE TESTING (test code = 89 mg/dL 70-110 N GLUBED) GLUCOSE BEDSIDE [id number] 08:22:00 Test Item Value Reference Range Interpretation Comments GLUCOSE BEDSIDE TESTING (test code = 68 mg/dL 70-110 L GLUBED) GLUCOSE BEDSIDE [id number] 20:05:00 Test Item Value Reference Range Interpretation Comments GLUCOSE BEDSIDE TESTING (test code 137 mg/dL 70-110 H = GLUBED) GLUCOSE BEDSIDE [id number] 16:42:00 Test Item Value Reference Range Interpretation Comments GLUCOSE BEDSIDE TESTING (test code = 98 mg/dL 70-110 N GLUBED) GLUCOSE BEDSIDE [id number] 11:13:00 Test Item Value Reference Range Interpretation Comments GLUCOSE BEDSIDE TESTING (test code 118 mg/dL 70-110 H = GLUBED) GLUCOSE BEDSIDE [id number] 07:37:00 Test Item Value Reference Range Interpretation Comments GLUCOSE BEDSIDE TESTING (test code 140 mg/dL 70-110 H = GLUBED) COMPREHENSIVE METABOLIC [id number] 06:34:00 Test Item Value Reference Range Interpretation [...] TOTAL (test code = ALKP) CBC W/AUTO [id number] 06:25:00 Test Item Value Reference Range Interpretation [...] DIFF/SCN CRITERIA = MDIFF) - CT ABDOMEN W/[id number] 03:09:00 [facility] 1960 Sex: M Name: FAITH VANCE [facility] : 1960 Age/S: 60 / M [id number] Unit #: [id number] Loc: [place] [address] Phys: Fede Carrera DO Acct: [id number] Dis Date: Status: ADM IN PHONE #:[phone] Exam Date: 10/31/20201919 FAX #: Reason: NAUSEA, VOMITING, DIARRHEA EXAMS: CPT: [id number] CT ABDOMEN W/CONTRAST 64507 EXAM: - CT ABDOMEN W/CONTRAST LOCATION: H61 [...] mass lesions. Mild nonspecific bilateral perinephric fat strandingis stable. 2.4 similar cyst in the anterior [...] Report (CONTINUED) Name: FAITH VANCE [facility] : 1960 Age/S: 60 / M [address] Unit #: [id number] Loc: [place] [address] Phys: DebiFede DO Acct: [id number] Dis Date: Status: ADM IN PHONE #: [phone] Exam Date: 10/31/2020 192 FAX #: Reason: NAUSEA, VOMITING, DIARRHEA EXAMS: CPT: [id number] CT ABDOMEN W/CONTRAST 73914 <Continued> small bowel wall thickening. The appendix [...] (308) [email or web address] Orig Print D/T: S: 11/01/2020 (9) PAGE 2 Signed ReportGLUCOSE BEDSIDE [id number] 21:34:00 Test Item Value Reference Range Interpretation Comments GLUCOSE BEDSIDE TESTING (test code 161 mg/dL 70-110 H = GLUBED) GLUCOSE BEDSIDE [id number] 17:32:00 Test Item Value Reference Range Interpretation Comments GLUCOSE BEDSIDE TESTING (test code 136 mg/dL 70-110 H = GLUBED) - XR ABDOMEN 1 [id number] 12:44:00 [facility] 1960 Sex: M Name: FAITH VANCE [facility] : 1960 Age/S: 60 / M [address] Unit #: [id number] Loc: [place] [address] Phys: Fede Carrera DO Acct: [id number] Dis Date: Status: ADM IN PHONE #: [phone] Exam Date: 10/31/2020 1227 FAX #: Reason: Abdominal pain in the lower qudarants EXAMS: CPT: [id number] XR ABDOMEN 1 V 94900 Fluoro Time: DAP (Gy m2): Air Kerma [...] small bowel loops. Overall nonspecific appearance. at 4064 Reported and signed by: Ananth Schmidt M.D. CC: Nika Martin MD; Fede Carrera DO PAGE 1 Signed Report Name: FAITH VANCE [facility] : 1960 Age/S: 60 / M [address] Unit #: [id number] Loc: [place] [address] Phys: Fede Carrera DO Acct: [id number] Dis Date: Status: ADM IN PHONE #: [phone] Exam Date: 10/31/2020 1220 FAX #: Reason: Abdominal pain in the lower qudarants EXAMS: CPT: [id number] XR ABDOMEN 1 V 98300 Fluoro Time: DAP (Gy m2): Air Kerma (mGy): <Continued> Technologist: RT Rohan(R) Trnchaseb Date/Time: 10/31/2020 (1154) Lorena Orig Print D/T: S: 10/31/2020 (6309) PAGE 2 Signed Report GLUCOSE BEDSIDE [id number] 11:58:00 Test Item Value Reference Range Interpretation Comments GLUCOSE BEDSIDE TESTING (test code 105 mg/dL 70-110 N = GLUBED) GLUCOSE BEDSIDE [id number] 08:01:00 Test Item Value Reference Range Interpretation Comments GLUCOSE BEDSIDE TESTING (test code 106 mg/dL 70-110 N = GLUBED) [id number] 22:46:00 Test Item Value Reference Range Interpretation [...] yby method. Completed by Nursing: NOGLUCOSE BEDSIDE [id number] 21:55:00 Test Item Value Reference Range Interpretation Comments GLUCOSE BEDSIDE TESTING (test code 119 mg/dL 70-110 H = GLUBED) [id number] 19:33:00 Test Item Value Reference Range Interpretation [...] method. Completed by Nursing: NOCoronavirus 2019 nCoV [id number] 18:46:00 Test Item Value Reference Range Interpretation Comments Coronavirus 2019 nCoV Negative Negative Per ma nufacturer, Bedside (test code = negativ e results should [id number]) be treated aspresumptive a nd, if inconsistent [...] with COVID-19. Spec Comments: NNT PRO-BRAIN NATRIURETIC [id number] 15:51:00 Test Item Value Reference Range Interpretation Comments NT PRO-BRAIN NATRIURETIC PEPTI 6079 PG/ML 0-100 H (test code = PROBNP) Completed by Nursing: [id number] 15:51:00 Test Item Value Reference Range Interpretation [...] yby method. Completed by Nursing: NOBASIC METABOLIC [id number] 15:51:00 Test Item Value Reference Range Interpretation [...] Completed by Nursing: NO- XR CHEST 1 [id number] 15:42:00 [facility] 1960 Sex: M Name: FAITH VANCE [facility] : 1960 Age/S: 60 / M [address] Unit #: [id number] Loc: [place] [address] Phys: Todd Jacobo MD Acct: [id number] Dis Date: Status: PRE ER PHONE #: [phone] Exam Date: 10/30/2020 9080 FAX #: Reason: chest pain EXAMS: CPT: [id number] XR CHEST 1V 50299 Fluoro Time: DAP (Gy m2): Air Kerma (mGy): Single View Chest. Location: S17 Clinical Indication: 60-year-old with chest pain Comparison: August 10, 2020 Findings: An AP view of the chest was obtained. Prior sternotomy. There is mild enlargement of the heart. There is hazy opacification of theperihilar and lower lungs, new from prior exam. [...] Signed Report Name: FAITH VANCE [facility] : 1960 Age/S: 60 / M [address] Unit #: [id number] Loc: [place] [address] Phys: Todd Jacobo MD Acct: [id number] Dis Date: Status: PRE ER PHONE #: [phone] Exam Date: 10/30/2020 1524 FAX #: Reason: chest pain EXAMS: CPT: [id number] XR CHEST 1 V 11896 Fluoro Time: DAP (Gy m2): Air Kerma (mGy): <Continued> Technologist: Kim Andrews, RT(R)(CT) Trnscb Date/Time: 10/30/2020 (603) t.SDR.RB24 Orig Print D/T: S: 10/30/2020 (0210) PAGE 2 Signed ReportCBC W/O [id number] 15:31:00 Test Item Value Reference Range Interpretation [...] 9.70 fL 7.0-9.6 H MPV) BASIC METABOLIC [id number] 21:42:00 Test Item Value Reference Range Interpretation [...] 9.6 mg/dL 8.0-10.5 N CA) HEPATIC FUNCTION [id number] 21:42:00 Test Item Value Reference Range Interpretation [...] 114 IUnit/L 20-125 N code = ALKP) [id number] 21:42:00 Test Item Value Reference Range Interpretation Comments LIPASE (test code = LIP) 70 U/L 13-57 H [id number] 21:42:00 Test Item Value Reference Range Interpretation [...] by method. UA RFLX MICR CULT IF [id number] 21:37:00 Test Item Value Reference Range Interpretation [...] INDWELLING CATH (CEDENO)Cath Status: Under 72 hoursPROTHROMBIN [id number] 21:35:00 Test Item Value Reference Range Interpretation [...] (to prevent recurrent infar ct). THROMBOPLASTIN TIME [id number] 21:35:00 Test Item Value Reference Range Interpretation Comments THROMBOPLASTIN TIME 41.7 Seconds 25.0-39.5 H Therape utic Range: PARTIAL (test code = 50.4 - 88.3 Seconds PTT) Effective 09/04/2018 CBC W/AUTO [id number] 21:29:00 Test Item Value Reference Range Interpretation [...] = MDIFF) - CT ABD PELVIS W/O [id number] 20:49:00 [facility] 1960 Sex: M Name: FAITH VANCE [facility] : 1960 Age/S: 60 / M [address] [place] [address] Blvd Unit #: [id number] Loc: [place], [place] [address] Phys: Gisel Eugene Acct: [id number] Dis Date: Status: REG ERPHONE #: [phone] Exam Date: 08/23/20202024 FAX #: [phone] Reason: DIFFUSE ABDOMINAL PAINEXAMS: CPT CODE: [id number] CT ABD PELVIS W/O CONT 65012 Clinical indication: Diffuse abdominal pain.Contrast - No [...] 1 Signed Report (CONTINUED) Name: FAITH VANCE [facility] : 1960 Age/S: 60 / M [address] [place] [address] Unit #:[id number] Loc: [place] [address] Phys: Gisel Eugene [employer] DEVEL[employer] Acct: [id number] Dis Date: Status: REGER PHONE #: [phone] Exam Date: 08/23/20202024 FAX #: [phone] Reason: DIFFUSE ABDOMINAL PAIN EXAMS: CPT CODE: [id number] CT ABD PELVIS W/O CONT 97848 <Continued> Peritoneum/Other: No extraluminal air. 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 [facility] BASIC METABOLIC [id number] 08:00:00 Test Item Value Reference Range Interpretation [...] 9.9 mg/dL 8.0-10.5 N CA) CBC W/AUTO [id number] 07:08:00 Test Item Value Reference Range Interpretation [...] DIFF REQUIRED (test code NO = MDIFF) [id number] 05:21:00 Test Item Value Reference Range Interpretation Comments GLUBED (test code = 150 MG/DL 70-110 H Performe d by certified GLUBED) 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 [facility] [id number] 21:13:00 Test Item Value Reference Range Interpretation Comments GLUBED (test code = 129 MG/DL 70-110 H Performe d by certified GLUBED) 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 [facility] [id number] 16:48:00 Test Item Value Reference Range Interpretation Comments GLUBED (test code = 116 MG/DL 70-110 H Performe d by certified GLUBED) 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 [facility] [id number] 12:18:00 Test Item Value Reference Range Interpretation Comments GLUBED (test code = 136 MG/DL 70-110 H Performe d by certified GLUBED) 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 [facility] [id number] 12:18:00 Test Item Value Reference Range Interpretation Comments GLUBED (test code = 151 MG/DL 70-110 H Performe d by certified GLUBED) 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 [facility] CBC W/AUTO [id number] 07:32:00 Test Item Value Reference Range Interpretation [...] (test code NO = MDIFF) BASIC METABOLIC [id number] 07:29:00 Test Item Value Reference Range Interpretation [...] code = 9.0 mg/dL 8.0-10.5 N CA) [id number] 05:19:00 Test Item Value Reference Range Interpretation Comments GLUBED (test code = 135 MG/DL 70-110 H Performe d by certified GLUBED) 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 [facility] [id number] 20:31:00 Test Item Value Reference Range Interpretation Comments GLUBED (test code = 189 MG/DL 70-110 H Performe d by certified GLUBED) 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 [facility] [id number] 17:41:00 Test Item Value Reference Range Interpretation Comments GLUBED (test code = 140 MG/DL 70-110 H Performe d by certified GLUBED) 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 [facility] - CTA CHEST FOR [id number] 13:48:00 [facility] : 1960 Sex: M Name: FAITH VANCE [facility] Sherman : 1960 Age/S: 60 / M [address] [place] [address] Unit #: [id number] Loc: [place] [address] Phys: Gina Gonzalez ACCOUNTING CONSULTANT Acct: [id number] Dis Date: Status: ADM INPHONE #: [phone] Exam Date: 08/12/2020 0912 FAX #: [phone] Reason: CP, elevated D-dimer EXAMS: CPT CODE: [id number] [place] [address] PROCEDURE: CTA CHEST INDICATION: CP, elevated D-dimer; [...] arteries demonstrate normal enhancement. Motion limited survey ofsubsegmental branches. No discrete intraluminal filling defects identified. MEDIASTINUM: The mediastinal contents are unremarkable. No adenopathy. HEART: The cardiac chambers are unremarkable. Pacemaker/ICD leads. No pericardial effusion. Coronary artery calcifications: Severe. Coronary arterial stents and evidence for prior CABG. VASCULAR STRUCTURES: Mild scattered calcified plaque thoracic aorta. No aneurysm. Incomplete opacification without evidence for dissection. Left subclavian arterial stent.The superior vena cava is unremarkable. LUNGS: Small [...] 1 Signed Report (CONTINUED) Name: FAITH VANCE [facility] Sherman : 1960 Age/S: 60 / M [address] [place] [address] Unit #: [id number] Loc: [place] [address] Phys: Gina Gonzalez NP Acct: [id number] Dis Date: Status: ADM IN PHONE #: [phone] Exam Date: 08/12/2020911 FAX #: [phone] Reason: CP, elevated D-dimer EXAMS: CPT CODE: [id number] [place] [address] <Continued> contrast enhancement. No acute abnormality demonstrated. MUSCULOSKELETAL: Healed median sternotomy. No acute skeletal abnormality. IMPRESSION: 1. Negative for pulmonary embolic disease within limitations noted. 2. Atherosclerosis. 3. Coronary arterial calcifications with prior coronary arterial stents and CABG.4. Interstitial edema. No consolidation. 5. Small bilateral pleural effusions. SL: [id number] at 1348 Reported and signed by: Christiano Piña M.D. 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 [facility] CBC W/AUTO [id number] 09:17:00 Test Item Value Reference Range Interpretation [...] (test code NO = MDIFF) BASIC METABOLIC [id number] 08:28:00 Test Item Value Reference Range Interpretation [...] code = 8.3 mg/dL 8.0-10.5 N CA) [id number] 08:28:00 Test Item Value Reference Range Interpretation Comments PHOSPHOROUS (test code = PHOS) 3.6 MG/DL 2.5-4.9 N [id number] 08:28:00 Test Item Value Reference Range Interpretation Comments MAGNESIUM (test code = MAG) 1.94 mg/dL 1.80-2.40 N [id number] 07:16:00 Test Item Value Reference Range Interpretation Comments GLUBED (test code = 170 MG/DL 70-110 H Performe d by certified GLUBED) 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 [facility] [id number] 07:16:00 Test Item Value Reference Range Interpretation Comments GLUBED (test code = 137 MG/DL 70-110 H Performe d by certified GLUBED) 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 [facility] [id number] 17:01:00 Test Item Value Reference Range Interpretation Comments GLUBED (test code = 88 MG/DL 70-110 N Performe d by certified GLUBED) 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 [facility] [id number]-[id number] 16:56:00 Test Item Value Reference Range Interpretation Comments ACT-ISTAT (test code 186 SEC 74-137 H Perform ed by certified = ACTI) 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 [facility] [id number] 15:03:00 Test Item Value Reference Range Interpretation Comments ACT-ISTAT (test code 235 SEC 74-137 H Perform ed by certified = ACTI) 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 [facility] [id number] 11:33:00 Test Item Value Reference Range Interpretation Comments GLUBED (test code = 97 MG/DL 70-110 N Performe d by certified GLUBED) 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 [facility] [id number] 06:54:00 Test Item Value Reference Range Interpretation Comments GLUBED (test code = 136 MG/DL 70-110 H Performe d by certified GLUBED) 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 [facility] [id number] 06:00:00 Test Item Value Reference Range Interpretation Comments PHOSPHOROUS (test code = PHOS) 4.1 MG/DL 2.5-4.9 N COMMENTS: To be done morning of Heart [id number] 06:00:00 Test Item Value Reference Range Interpretation Comments MAGNESIUM (test code = MAG) 1.74 mg/dL 1.80-2.40 L COMMENTS: To be done morning of Heart CathBASIC METABOLIC [id number] 06:00:00 Test Item Value Reference Range Interpretation [...] be done morning of Heart CathTHROMBOPLASTIN TIME [id number] 05:55:00 Test Item Value Reference Range Interpretation Comments THROMBOPLASTIN TIME 37.9 Seconds 25.0-39.5 N Therape utic Range: PARTIAL (test code = 50.4 - 88.3 Seconds PTT) Effective 09/04/2018 CBC W/AUTO [id number] 05:44:00 Test Item Value Reference Range Interpretation [...] COMMENTS: To be done morning of Heart [id number] 05:44:00 Test Item Value Reference Range Interpretation Comments GLUBED (test code = 92 MG/DL 70-110 N Performe d by certified GLUBED) 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 [facility] HGBA1C%[id number] 17:22:00 Test Item Value Reference Range Interpretation Comments HGBA1C% (test code = HGBA1C%) 6.6 %A1C 4.8-6.0 H [id number] 17:17:00 Test Item Value Reference Range Interpretation Comments GLUBED (test code = 118 MG/DL 70-110 H Performe d by certified GLUBED) 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 COVID 19 Asymptomatic IH [id number] 11:35:00 Test Item Value Reference Range Interpretation [...] y tests. COMMENTS: If not done this hntrwrpfvFPSXVYPC-[id number] 11:31:00 Test Item Value Reference Range Interpretation [...] titative results may babak y by method. [id number] 11:28:00 Test Item Value Reference Range Interpretation [...] to interpret this result as normal/abnormal . 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 [facility] B-TYPE NATRIURETIC [id number] 08:19:00 Test Item Value Reference Range Interpretation Comments B-TYPE NATRIURETIC PEPTIDE (test 508.0 PG/ML 0-100 H code = BNP) BASIC METABOLIC [id number] 08:11:00 Test Item Value Reference Range Interpretation [...] 9.1 mg/dL 8.0-10.5 N CA) HEPATIC FUNCTION [id number] 08:11:00 Test Item Value Reference Range Interpretation [...] 174 IUnit/L 20-125 H code = ALKP) [id number] 08:11:00 Test Item Value Reference Range Interpretation Comments MAGNESIUM (test code = MAG) 1.80 mg/dL 1.80-2.40 N [id number] 08:11:00 Test Item Value Reference Range Interpretation [...] may babak y by method. BASIC METABOLIC [id number] 08:09:00 Test Item Value Reference Range Interpretation [...] code = CA) mg/dL 8.0-10.5 HEPATIC FUNCTION [id number] 08:09:00 Test Item Value Reference Range Interpretation Comments TOTAL PROTEIN (test code = PROT) g/dL 6.4-8.2 ALBUMIN (test code = ALB) g/dL 3.4-5.0 BILIRUBIN TOTAL (test code = BILT) mg/dL 0.0-1.0 BILIRUBIN DIRECT (test code = BILD) MG/DL 0.0-0.30 SGOT/AST (test code = AST) IUnit/L 15-37 SGPT/ALT (test code = ALT) IUnit/L 30-65 ALKALINE PHOSPHATASE TOTAL (test IUnit/L 20-125 code = ALKP) [id number] 08:09:00 Test Item Value Reference Range Interpretation Comments MAGNESIUM (test code = MAG) mg/dL 1.80-2.40 [id number] 08:09:00 Test Item Value Reference Range Interpretation [...] results may babak y by method. PROTHROMBIN [id number] 08:06:00 Test Item Value Reference Range Interpretation [...] (to prevent recurrent infar ct). THROMBOPLASTIN TIME [id number] 08:06:00 Test Item Value Reference Range Interpretation Comments THROMBOPLASTIN TIME 44.5 Seconds 25.0-39.5 H Therape utic Range: PARTIAL (test code = 50.4 - 88.3 Seconds PTT) Effective 09/04/2018 CBC W/AUTO [id number] 07:58:00 Test Item Value Reference Range Interpretation [...] NO = MDIFF) - XR CHEST 1 [id number] 07:57:00 [facility] 1960 Sex: M FAX: Todd Jacobo MD [phone] [place]: St: REG FAX: Martínez Dash NP [phone] Name: FAITH VANCE [facility] : 1960 Age/S: 60/M [address] [place] [address] Bl Unit #: [id number] Loc: [place] [address] Phys: Martínez Dash NP Acct: [id number] Dis Date: Status: REG ER PHONE #: [phone] Exam Date: 08/10/2020 [facility] FAX #: [phone] Reason: Chest Pain EXAMS: CPT CODE: [id number] XR CHEST 1 V 92334 Chest single view 08/10/2020 HISTORY: Chest pain. Comparison is made to 05/21/2018 FINDINGS: Pacemaker and midline sternotomy wires are stable. The lungs are hypoinflated. No consolidation or pleural e ffusion is present. No vascular congestion or interstitial edema is present. Heart size is mildly enlarged. Aorta is unchanged. IMPRESSION: Hypoinflated lungs. No acute cardiopulmonary process. SL: [id number] at 0757 Reported and signed by: Khai Kruse M.D. CC: Todd Jacobo MD; Martínez Dash NP Technologist: RT Ann(R) Trnscrd Date/Time/By: 08/10/2020 (0757) : By: [email or web address] Orig Print D/T: S: 08/10/2020 (0800) PAGE 1 Signed Report COMPREHENSIVE METABOLIC [id number] 18:02:00 Test Item Value Reference Range Interpretation [...] 50-136 H TOTAL (test code = ALKP) [id number] 18:02:00 Test Item Value Reference Range Interpretation Comments AMYLASE (test code = SERGIO) 82 Unit/L 25-115 N [id number] 18:02:00 Test Item Value Reference Range Interpretation Comments LIPASE (test code = LIP) 185 Unit/L 114-286 N COMPREHENSIVE METABOLIC [id number] 17:56:00 Test Item Value Reference Range Interpretation [...] TOTAL Unit/L 50-136 (test code = ALKP) [id number] 17:56:00 Test Item Value Reference Range Interpretation Comments AMYLASE (test code = SERGIO) Unit/L 25-115 [id number] 17:56:00 Test Item Value Reference Range Interpretation Comments LIPASE (test code = LIP) 185 Unit/L 114-286 N CBC W/AUTO [id number] 17:46:00 Test Item Value Reference Range Interpretation [...] CRITERIA MDIFF) - CT ABD PELVIS W/O [id number] 17:46:00 Name: FAITH VANCE : 1960 Age/S: 58 / M [address] Unit #: [id number] Loc: [place] [address] Phys: Nila Chester MD Acct: [id number] Dis Date: Status: REG ER PHONE #: [phone] Exam Date: 01/03/2019 1730 FAX #: Reason: llq EXAMS: CPT: [id number] CT ABD PELVIS W/O CONT 57277 Location of dictation: B2 CT abdomen and [...] VANCE : 1960 Age/S: 58 / M [address] Unit #: [id number] Loc: [place] [address] Phys: Nila Chester MD Acct: [id number] Dis Date: Status: REG ER PHONE #: [phone] Exam Date: 01/03/2019 1730 FAX #: Reason: llq EXAMS: CPT: [id number] CT ABD PELVIS W/O CONT 11177 <Continued> at 1746 Reported and signed by: Renuka Willett M.D. CC: Nila Chester MD Technologist:Tavon Jurado, RT(R)(CT)(MRI) CTDI: DLP: Trnscb Date/Time: 01/03/2019 (1746) JhonPXC Orig Print D/T: S: 01/03/2019 (7911) PAGE 2 Signed ReportBedside [id number] 11:47:00 Test Item Value Reference Range Interpretation Comments Bedside Glucose (test code = 47807-1) 155 70-120 H Meter ID: [id number] General Hospitalodium Mcoys2080-99-43 08:31:00 Test Item Value Reference Range Interpretation Comments Sodium Level (test code = 2951-2) 139 136-145 [facility] Xeatw2566-78-97 08:31:00 Test Item Value Reference Range Interpretation Comments Potassium Level (test code = 2823-3) 4.0 3.5-5.1 [facility] TexasChloride Hgqyg8416-38-02 08:31:00 Test Item Value Reference Range Interpretation Comments Chloride Level (test code = 2075-0) 106 98-107 [facility] TexasCarbon Dioxide [id number] 08:31:00 Test Item Value Reference Range Interpretation Comments Carbon Dioxide Level (test code = 25 -8-9) [facility] TexasAnion [id number] 08:31:00 Test Item Value Reference Range Interpretation Comments Anion Gap (test code = 66748-1) 12.0 8-16 [facility] TexasBlood Urea [id number] 08:31:00 Test Item Value Reference Range Interpretation Comments Blood Urea Nitrogen (test code = 12-14 3094-0) [facility] TexasCreatinine2018-06-08 08:31:00 Test Item Value Reference Range Interpretation Comments Creatinine (test code = 2160-0) 0.72 0.72-1.25 [facility] TexasBUN/Creatinine Ypxzi2408-91-72 08:31:00 Test Item Value Reference Range Interpretation Comments BUN/Creatinine Ratio (test code = 10 6 3097-3) [facility] TexasEstimat Glomerular Filtration Sfbm2381-28-03 08:31:00 Test Item Value Reference Range Interpretation Comments Estimat Glomerular Filtration Rate 60- >60 (test code = 70638-0) Ranges were taken from the National Kidney Disease Education Program and the National Kidney Foundation literature.Reference ranges:60 or greater: Gfpuzo91- 59 (for 3 consecutive months): Chronic kidneydisease 15 or less: Kidney failure [facility] TexasGlucose Ahuuu6403-23-66 08:31:00 Test Item Value Reference Range Interpretation Comments Glucose Level (test code = UXL1764) 195 74-118 H [facility] TexasCalcium Flgfr5512-66-74 08:31:00 Test Item Value Reference Range Interpretation Comments Calcium Level (test code = 81813-8) 9.0 8.4-10.2 [facility] TexasWhite Blood Qfajx3097-24-16 08:12:00 Test Item Value Reference Range Interpretation Comments White Blood Count (test code = 6690-2) 6.06 4.8-10.8 [facility] TexasRed Blood Dutdt9281-68-54 08:12:00 Test Item Value Reference Range Interpretation Comments Red Blood Count (test code = 789-8) 4.22 4.3-5.7 L [facility] TexasHemoglobin2018-06-08 08:12:00 Test Item Value Reference Range Interpretation Comments Hemoglobin (test code = 95158-9) 12.5 14.0-18.0 L [facility] TexasHematocrit2018-06-08 08:12:00 Test Item Value Reference Range Interpretation Comments Hematocrit (test code = 4544-3) 36.2 38.2-49.6 L [facility] TexasMean Corpuscular Ddrcsq8590-16-61 08:12:00 Test Item Value Reference Range Interpretation Comments Mean Corpuscular Volume (test code = 85.8 81-99 787-2) [facility] TexasMean Corpuscular Cbsquqsojo9163-39-09 08:12:00 Test Item Value Reference Range Interpretation Comments Mean Corpuscular Hemoglobin (test code 29.6 28-32 = 785-6) [facility] TexasMean Corpuscular Hemoglobin Ombuncz3634-11-41 08:12:00 Test Item Value Reference Range Interpretation Comments Mean Corpuscular Hemoglobin Concent 34.5 31-35 (test code = 786-4) [facility] TexasRed Cell Distribution Fniun2047-45-16 08:12:00 Test Item Value Reference Range Interpretation Comments Red Cell Distribution Width (test code 14.2 11.7-14.4 = 37015-7) [facility] TexasPlatelet Mrdoo6024-59-28 08:12:00 Test Item Value Reference Range Interpretation Comments Platelet Count (test code = 777-3) 263 140-360 [facility] TexasNeutrophils (%) (Auto)2017-10-27 08:12:00 Test Item Value Reference Range Interpretation Comments Neutrophils (%) (Auto) (test code = 51.2 38.7-80.0 63253-2) [facility] TexasLymphocytes (%) (Auto)2017-10-27 08:12:00 Test [...] # (Auto) (test code = 2.0 1.0-3.2 75874-1) [facility] TexasMonocytes # (Auto)2017-10-27 08:12:00 Test [...] 0.0 0.0-0.1 [facility] TexasAbsolute Immature Granulocyte (otex9495-03-03 08:12:00 Test Item Value Reference Range Interpretation Comments Absolute Immature Granulocyte (auto 0.03 0-0.1 (test code = Absolute Immature Granulocyte (auto) [facility] TexasCreatine Kinase [id number] 15:14:00 Test Item Value Reference Range Interpretation Comments Creatine Kinase MB (test code = 3.90 0-5.0 59454-3) [facility] TexasTroponin [id number] 15:14:00 Test Item Value Reference Range Interpretation Comments Troponin I (test code = ATP6126) 0.054 0-0.300 [facility] TexasCreatine Ocsfkp2495-53-10 15:07:00 Test Item Value Reference Range Interpretation Comments Creatine Kinase (test code = 2157-6) 297 30-200 H [facility] TexasHemoglobin A1c Uvzpvsm6545-11-93 08:04:00 Test Item Value Reference Range Interpretation Comments Hemoglobin A1c Percent (test code = 12.6 4.0-7.0 H Hemoglobin A1c Percent) [facility] TexasTriglycerides Kbvoq8054-18-32 06:57:00 Test Item Value Reference Range Interpretation Comments Triglycerides Level (test code = 200 0-149 H 2571-8) [facility] TexasCholesterol Volev0320-70-43 06:57:00 Test Item Value Reference Range Interpretation Comments Cholesterol Level (test code = 2093-3) 239 0-199 H Less than 200 mg/dL Low Tgri362 - 239 mg/dL Borderline Czyc694 mg/dl and greater High RiskAdventHealth Central TexasLDL Cujsrixgqpn1936-59-57 06:57:00 Test Item Value Reference Range Interpretation Comments LDL Cholesterol (test code = 2089-1) 164 60-130 H [facility] TexasHDL Fdpyojmgewz2313-70-48 06:57:00 Test Item Value Reference Range Interpretation Comments HDL Cholesterol (test code = 2085-9) 35 40-60 L [facility] TexasCholesterol/HDL Ahtaa4721-04-22 06:57:00 Test Item Value Reference Range Interpretation Comments Cholesterol/HDL Ratio (test code = 6.8 3.9-4.7 H 9830-1) [facility] TexasUrine Amphetamines Cxukww8420-47-38 16:18:00 Test Item Value Reference Range Interpretation Comments Urine Amphetamines Screen (test code NEGATIVE NEGATIVE = 24990-0) [facility] TexasUrine Methamphetamines Zqdlqk0604-47-05 16:18:00 Test Item Value Reference Range Interpretation Comments Urine Methamphetamines Screen (test NEGATIVE NEGATIVE code = Urine Methamphetamines Screen) [facility] TexasUrine Benzodiazepines Pvuscz0665-62-21 16:18:00 Test Item Value Reference Range Interpretation Comments Urine Benzodiazepines Screen (test NEGATIVE NEGATIVE code = 56824-9) [facility] TexasUrine Cocaine Mwvail1956-65-75 16:18:00 Test Item Value Reference Range Interpretation Comments Urine Cocaine Screen (test code = NEGATIVE NEGATIVE 3398-5) [facility] TexasUrine Cannabinoids Lqxgsq2501-97-96 16:18:00 Test Item Value Reference Range Interpretation Comments Urine Cannabinoids Screen (test code NEGATIVE NEGATIVE = 55608-7) THESE RESULTS ARE FOR MEDICAL TREATMENT ONLYTHIS REPORT CONTAINS UNCONFIRMED SCREENING RESULTS*POSITIVE RESULTS WILL BE CONFIRMED BY REFERENCE LAB UPON REQUEST CUT-OFFDRUG CLASS CONCENTRATION ng/mLAmphetamines 1000Methamphetamines 1000Cocaine 300Opiate 300Phencyclidine 25Cannabinoid 50Barbiturates 300Benzodiazepine 300Methadone 300[facility] CampusUrine Methadone Omyphr5197-77-64 16:18:00 Test Item Value Reference Range Interpretation Comments Urine Methadone Screen (test code = NEGATIVE NEGATIVE 00423-6) THESE RESULTS ARE FOR MEDICAL TREATMENT ONLYTHIS REPORT CONTAINS UNCONFIRMED SCREENING RESULTS*POSITIVE RESULTS WILL BE CONFIRMED BY REFERENCE LAB UPON REQUEST CUT-OFFDRUG CLASS CONCENTRATION ng/mLAmphetamines 1000Methamphetamines 1000Cocaine Metabolite 300Opiate 300Phencyclidine 25Cannabinoid 50Barbiturates 300Benzodiazepine 300Methadone 300[facility] TexasUrine Opiates Kzoqfl4304-33-92 16:18:00 Test Item Value Reference Range Interpretation Comments Urine Opiates Screen (test code = NEGATIVE NEGATIVE 98070-6) [facility] TexasUrine Barbiturates Bncgom6843-21-94 16:18:00 Test Item Value Reference Range Interpretation Comments Urine Barbiturates Screen (test code NEGATIVE NEGATIVE = 881087853) [facility] TexasUrine Phencyclidine Vvzrng9616-04-35 16:18:00 Test Item Value Reference Range Interpretation Comments Urine Phencyclidine Screen (test NEGATIVE NEGATIVE code = 15346-2) [facility] TexasProthrombin Radr6688-39-25 14:13:00 Test Item Value Reference Range Interpretation Comments Prothrombin Time (test code = 5902-2) 13.6 11.9-14.5 [facility] TexasProthromb Time International Vqodt0134-70-08 14:13:00 Test Item Value Reference Range Interpretation Comments Prothromb Time International Ratio 1.13 (test code = 6301-6) Oral Anticoagulant Therapy INR Values:1. Low Intensity Therapy 1.5 - 2.02. Moderate Intensity Therapy 2.0 - 3.03. High Intensity Therapy(1) 2.5 - 3.54. High Intensity Therapy(2) 3.0 - 4.05. Panic ValueINR > 5.0[facility] TexasActivated Partial Thromboplast Ldhw5765-12-69 14:13:00 Test Item Value Reference Range Interpretation Comments Activated Partial Thromboplast Time 27.6 23.8-35.5 (test code = 80470-9) [facility] TexasTotal Hkvgmauvy6901-31-15 14:10:00 Test Item Value Reference Range Interpretation [...] (test code = 1742-6) [facility] TexasTotal Datjwoz7912-26-87 14:10:00 Test Item Value Reference Range Interpretation Comments Total Protein (test code = 2885-2) 7.3 6.5-8.1 [facility] TexasAlbumin2018-06-04 14:10:00 Test Item Value Reference Range Interpretation Comments Albumin (test code = 1751-7) 4.0 3.5-5.0 [facility] TexasGlobulin2018-06-04 14:10:00 Test Item Value Reference Range Interpretation Comments Globulin (test code = 28903-8) 3.3 2.3-3.5 [facility] TexasAlbumin/Globulin Gadpf3163-49-77 14:10:00 Test Item Value Reference Range Interpretation Comments Albumin/Globulin Ratio (test code = 1.2 0.8-2.0 1759-0) [facility] TexasAlkaline Vwaujdvxxsg5199-74-73 14:10:00 Test Item Value Reference Range Interpretation Comments Alkaline Phosphatase (test code = 109 40-150 6768-6) [facility] TexasB-Type Natriuretic Iyxmheq6859-41-84 14:10:00 Test Item Value Reference Range Interpretation Comments B-Type Natriuretic Peptide (test code = 92.8 0-100 41282-8) [facility] TexasAmylase Nyzsf9665-33-86 14:10:00 Test Item Value Reference Range Interpretation Comments Amylase Level (test code = 1798-8) 126 25-125 H [facility] TexasLipase2018-06-04 14:10:00 Test Item Value Reference Range Interpretation Comments Lipase (test code = 3040-3) 98 8-78 H [facility] TexasD-Dimer Quantitative (PE/DVT)2017-10-23 14:02:00 Test Item Value Reference Range Interpretation Comments D-Dimer Quantitative (PE/DVT) (test 0.49 0.00-0.45 H code = 34619-2) [facility] [place] [id number] 13:47:00 Test Item Value Reference Range Interpretation Comments Direct Bilirubin (test code = 49589-7) 0.2 0.0-5.0 [facility] [id number] 06:52:00 Test Item Value Reference Range Interpretation Comments Magnesium Level (test code = 07412-5) 1.5 1.3-2.1 [facility] [id number] 05:09:00 Test Item Value Reference Range Interpretation Comments Urine WBC (test code = 5821-4) NONE 0-5 [facility] [id number] 05:09:00 Test Item Value Reference Range Interpretation Comments Urine RBC (test code = 04731-6) NONE 0-5 [facility] [id number] 05:09:00 Test Item Value Reference Range Interpretation Comments Urine Bacteria (test code = 02574-1) NONE NONE [facility] Epithelial [id number] 05:09:00 Test Item Value Reference Range Interpretation Comments Urine Epithelial Cells (test code = NONE NONE 66570-0) [facility] [id number] 04:46:00 Test Item Value Reference Range Interpretation Comments Urine Color (test code = 5778-6) YELLOW YELLOW [facility] [id number] 04:46:00 Test Item Value Reference Range Interpretation Comments Urine Clarity (test code = 70612-7) CLEAR CLEAR [facility] Specific [id number] 04:46:00 Test Item Value Reference Range Interpretation Comments Urine Specific [place] (test code = 1.010 1.010-1.025 5811-5) [facility] [id number] 04:46:00 Test Item Value Reference Range Interpretation Comments Urine pH (test code = 60491-1) 8 5-7 H [facility] Leukocyte Wcdlrtuo1580-31-47 04:46:00 Test Item Value Reference Range Interpretation Comments Urine Leukocyte Esterase (test code NEGATIVE NEGATIVE = 5799-2) [facility] [id number] 04:46:00 Test Item Value Reference Range Interpretation Comments Urine Nitrite (test code = 26372-6) NEGATIVE NEGATIVE [facility] [id number] 04:46:00 Test Item Value Reference Range Interpretation Comments Urine Protein (test code = 5804-0) NEGATIVE NEGATIVE [facility] Glucose (UA)2017-03-05 04:46:00 Test Item Value Reference Range Interpretation Comments Urine Glucose (UA) (test code = NEGATIVE NEGATIVE 2349-9) [facility] [id number] 04:46:00 Test Item Value Reference Range Interpretation Comments Urine Ketones (test code = 47384-0) NEGATIVE NEGATIVE [facility] Wsavneqbqkjq0645-61-00 04:46:00 Test Item Value Reference Range Interpretation Comments Urine Urobilinogen (test code = 0.2 0.2-1 29818-6) [facility] [id number] 04:46:00 Test Item Value Reference Range Interpretation Comments Urine Bilirubin (test code = 1978-6) NEGATIVE NEGATIVE [facility] [id number] 04:46:00 Test Item Value Reference Range Interpretation Comments Urine Blood (test code = 79817-3) 2+ NEGATIVE H [facility] [address] [place] [address] PatientName: FAITH VANCE MR #: [id number] : 1960 Age/Sex: 57/M Req #: [id number] [facility] Physician: ALEXIS COX MD Ordered by: ALEXIS COX MD Report #: [id number] Location: [facility] Room/Bed: [place] [address] Procedure: [id number] CT/CTA BRAIN Exam Date: 10/24/17 Exam Time: [...] COPY TO: ALEXIS COX MDCT BRAIN WO [place] [address] PatientName: FAITH VANCE MR #: [id number] : 1960 Age/Sex: 57/M Req #: [id number] Adm Physician: Ordered by: KHAI WAHL MD Report #: [id number] Location: ER Room/Bed: __ Procedure: [id number] CT/CT BRAIN WO Exam Date: 10/23/17 Exam [...] COPY TO: KHAI WAHL V MDCTA CHEST [place] [address] PatientName: FAITH VANCE MR #: [id number] : 1960 Age/Sex: 57/M Req #: [id number] Adm Physician: Ordered by: KHAI WAHL MD Report #: [id number] Location: ER Room/Bed: __ Procedure: [id number] CT/CTA CHEST Exam Date: 10/23/17 Exam Time: [...] is below limits set by [facility]).FINDINGS: Lines and Tubes: Pacemaker with [...] 10/23/17 1621 [facility] [place] [address] PatientName: FAITH VANCE MR #: [id number] : 1960 Age/Sex: 57/M Req #: [id number] Adm Physician: Ordered by: KHAI WAHL MD Report #: [id number] Location: ER Room/Bed: __ Procedure: [id number] DX/CHEST SINGLE (PORTABLE) Exam Date: 10/23/17 Exam [...] TO: KHAI WAHL V MDCT BRAIN WO [place] [address] PatientName: FAITH VANCE MR #: [id number] : 1960 Age/Sex: 56/M Req #: [id number] Adm Physician: Ordered by: JACQUELYN MONTES DE OCA MD Report #: [id number] Location: ER Room/Bed: Procedure: [id number] CT/CT BRAIN WO Exam Date: Exam Time: [...] MONTES DE OCA MDCT CERVICAL SPINE WO [place] [address] PatientName: FAITH VANCE MR #: [id number] : 1960 Age/Sex: 56/M Req #: [id number] Adm Physician: Ordered by: JACQUELYN MONTES DE OCA MD Report #: [id number] Location: ER Room/Bed: Procedure: [id number] CT/CT CERVICAL SPINE WO Exam Date: Exam [...] 04/04/17206 COPY TO: JACQUELYN MONTES DE OCA [facility] [place] [address] PatientName: FAITH VANCE MR #: [id number] : 1960 Age/Sex: 56/M Req #: [id number] Adm Physician: Ordered by: JACQUELYN MONTES DE OCA MD Report #: [id number] Location: ER Room/Bed: Procedure: [id number] DX/CHEST SINGLE (PORTABLE) Exam Date: 04/04/17 Exam [...] OCA MDHIP RIGHT 2-3 VW (+/- PELVIS) [place] [address] PatientName: FAITH VANCE MR #: [id number] : 1960 Age/Sex: 56/M Req #: [id number] Adm Physician: Ordered by: JACQUELYN MONTES DE OCA MD Report #: [id number] Location: ER Room/Bed: Procedure: [id number] DX/HIP RIGHT 2-3 VW (+/- PELVIS) Exam [...] DE OCA MDSP LUMBAR, COMPLETE MIN 4VW [place] [address] PatientName: FAITH VANCE MR #: [id number] : 1960 Age/Sex: 56/M Req #: [id number] Adm Physician: Ordered by: JACQUELYN MONTES DE OCA MD Report #: [id number] Location: ER Room/Bed: Procedure: [id number] DX/SP LUMBAR, COMPLETE MIN 4VW Exam Date: [...] JACQUELYN MONTES DE OCA MDUS ABDOMEN COMPLETE [place] [address] PatientName: FAITH VANCE MR #: [id number] : 1960 Age/Sex: 56/M Req #: [id number] [facility] Physician: NICHELLE PALACIOS MD Ordered by: SCOTT AMIN MD Report #: [id number] Location: [facility] Room/Bed: [place] [address] Procedure: [id number] US/US ABDOMEN COMPLETE Exam Date: 03/08/17 Exam [...] BROOKE SAMPSON MD 39 COPY TO: SCOTT AMIN [facility] SINGLE (PORTABLE) [place] [address] PatientName: FAITH VANCE MR #: [id number] : 1960 Age/Sex: 56/M Req #: [id number] Adm Physician: Ordered by: JACQUELYN MONTES DE OCA MD Report #: [id number] Location: ER Room/Bed: Procedure: [id number] DX/CHEST SINGLE (PORTABLE) Exam Date: 03/05/17 Exam [...]
--- NOTE | 2022-07-25 19:02 | RAD REPORT ---
EXAM DESCRIPTION: Adrián Single View07/25/2022 6:52 pm CLINICAL HISTORY: Chest pain COMPARISON: July 20 2022 FINDINGS: Mild bibasilar lung opacities probably atelectasis Small to moderate pleural effusions Heart is mildly enlarged. Pacemaker leads in place. Postsurgical changes involve the chest
[2022-07-25 19:03] LABS: Hematocrit 30.3 % (39.6-49.0); Lymphocytes % 14.8 % (15.3-44.8); MCV 82.1 fL (80-100); MPV 7.2 fL (7.6-11.3); RBC Red Blood Cell Count 3.69 M/uL (4.33-5.43)
[2022-07-25 19:14] LABS: Potassium 4.3 mmol/L (3.5-5.1); Troponin High Sensitivity 28.7 pg/mL (<58.9)
--- NOTE | 2022-07-25 20:01 | ER ---
Nurse's Notes [facility] Name: Ernie Rooney Age: 62 yrs Sex: Male : 1960 Arrival Date: 07/25/2022 Time: 17:51 Bed 25 Private MD: Diagnosis: Chest pain, unspecified Presentation: 07/25 18:33 Chief complaint: Patient states: chest pain that began 1 hr CLINICAL ACCOUNT LIAISON. EMS reports giving ASA aa5 324 mg PO and inserting 20G to L FA. Coronavirus screen: nausea. Ebola Screen: Patient denies travel to an Ebola-affected area in the 21 days before illness onset. Initial Sepsis Screen: Does the patient meet any 2 criteria? No. Patient's initial sepsis screen is negative. Does the patient have a suspected source of infection? No. Patient's initial sepsis screen is negative. Risk Assessment: Do you want to hurt yourself or someone else? Patient reports no desire to harm self or others. Onset of symptoms was July 25, 2022. 18:33 Acuity: TONE 3 aa5 18:33 Method Of Arrival: EMS: [facility] aa5 Historical: - Allergies: 18:34 Nitroglycerin; aa5 - PMHx: 18:34 Arthritis; Back pain; CAD; CHF; CVA; Depression; Fibromyalgia; GERD; Hyperlipidemia; aa5 Hypertensive disorder; Hypothyroidism; IDDM; Left sided weakness from previous CVA; Myocardial infarction; Pacemaker; - PSHx: 18:34 bilat BKA's; bypass; CABG; aa5 - Immunization history:: Adult Immunizations unknown. - Social history:: Smoking status: Patient/guardian denies using tobacco, the patient reports quitting approximately 20 years ago. Screenin:[address] [facility] ED Fall Risk Assessment (Adult) Score/Fall Risk Level 0 - 2 = Low Risk. Abuse eh3 screen: Denies threats or abuse. Denies injuries from another. Nutritional screening: No deficits noted. Tuberculosis screening: No symptoms or risk factors identified. Assessment: 20:00 General: Appears in no apparent distress. uncomfortable, Behavior is calm, cooperative, eh3 appropriate for age. Pain: Complains of pain in chest Pain radiates to left arm Pain began years ago. Neuro: Level of Consciousness is awake, alert, obeys commands, Oriented to person, place, time, situation. Cardiovascular: Capillary refill < 3 seconds Patient's skin is warm and dry. Rhythm is sinus rhythm. Respiratory: Airway is patent Respiratory effort is even, unlabored, Respiratory pattern is regular, symmetrical. 21:00 Reassessment: Patient appears in no apparent distress at this time. Patient and/or 3 family updated on plan of care and expected duration. Pain level reassessed. Patient is alert, oriented x 3, equal unlabored respirations, skin warm/dry/pink. Pt discharged but awaiting ambulance ride home. Vital Signs: 18:33 BP 130 / 74; Pulse 88; Resp 18 S; Temp 97.8(TE); Pulse Ox 100% on R/A; aa5 20:00 BP 132 / 78; Pulse 83; Resp 18; Pulse Ox 99% on R/A; eh3 21:00 BP 130 / 76; Pulse 82; Resp 18; Pulse Ox 100% on R/A; 3 ED Course: 17:51 Patient arrived in ED. rg4 18:33 Arm band placed on. aa5 18:34 Triage completed. aa5 18:34 Anjel Mendenhall PA is PHCP. [facility] 18:34 Cade Dye MD is Attending Physician. [facility] 18:44 EKG completed in triage. Results shown to MD. iw 20:00 Patient has correct armband on for positive identification. Bed in low position. Call [facility] light in reach. Side rails up X2. Client placed on continuous cardiac and pulse oximetry monitoring. NIBP monitoring applied. Door closed. Noise minimized. Lights dimmed. Warm blanket given. Pillow given. 20:00 Patient maintains SpO2 saturation greater than 95% on room air. 3 20:19 Teagan Perez, RN is Primary Nurse. 3 21:19 No provider procedures requiring assistance completed. IV discontinued, intact, eh3 bleeding controlled, No redness/swelling at site. Pressure dressing applied. Administered Medications: 20:30 Drug: morphine 4 mg Route: IVP; Infused Over: 4 mins; Site: left antecubital; 3 21:19 Follow up: Response: Pain is decreased 3 20:30 Drug: Zofran (Ondansetron) 4 mg Route: IVP; Site: left antecubital; 3 21:19 Follow up: Response: No adverse reaction [facility] Medication: 21:00 VIS not applicable for this client. 3 Outcome: 20:00 Discharge ordered by MD. hua 22:39 Patient left the ED. 3 Signatures: Anjel Mendenhall PA PA jmm Williams, Irene, RN RN iw Calderon, Audri RN RN 5 Angela Friedman Erin, RN RN 3
--- NOTE | 2022-07-25 20:01 | EDPHYS ---
Physician Documentation [facility] Name: Ernie Rooney Age: 62 yrs Sex: Male : 1960 Arrival Date: 07/25/2022 Time: 17:51 Bed 25 Private MD: ED Physician Cade Dye HPI: 07/25 18:34 This 62 yrs old Male presents to ER via EMS with complaints of Chest Pain. jmm 18:34 The patient or guardian reports chest pain that is located primarily in the substernal [facility] area. Onset: gradually. The pain does not radiate. Is a 62-year-old male with history of coronary artery disease, fibromyalgia the presents emerged part with complaints of substernal chest pain beginning today. Patient has had multiple similar episodes. States the pain is worse than previous episodes.. Historical: - Allergies: 18:34 Nitroglycerin; aa5 - PMHx: 18:34 Arthritis; Back pain; CAD; CHF; CVA; Depression; Fibromyalgia; GERD; Hyperlipidemia; aa5 Hypertensive disorder; Hypothyroidism; IDDM; Left sided weakness from previous CVA; Myocardial infarction; Pacemaker; - PSHx: 18:34 bilat BKA's; bypass; CABG; aa5 - Immunization history:: Adult Immunizations unknown. - Social history:: Smoking status: Patient/guardian denies using tobacco, the patient reports quitting approximately 20 years ago. ROS: 18:34 Constitutional: Negative for fever, chills, and weight loss. jmm 18:34 Cardiovascular: Positive for chest pain. 18:34 All other systems are negative. Exam: 18:34 Constitutional: This is a well developed, well nourished patient who is awake, alert, jmm and in no acute distress. Head/Face: atraumatic. Eyes: EOMI, no conjunctival erythema appreciated ENT: Moist Mucus Membranes Neck: Trachea midline, Supple Chest/axilla: Normal chest wall appearance and motion. Cardiovascular: Regular rate and rhythm. No edema appreciated Respiratory: Normal respirations, no respiratory distress appreciated Abdomen/GI: Non distended Back: Normal ROM Skin: General appearance color normal MS/ Extremity: Moves all extremities, no obvious deformities appreciated, no edema noted to the lower extremities Neuro: Awake and alert Psych: Behavior is normal, Mood is normal, Patient is cooperative and pleasant Vital Signs: 18:33 BP 130 / 74; Pulse 88; Resp 18 S; Temp 97.8(TE); Pulse Ox 100% on R/A; aa5 20:00 BP 132 / 78; Pulse 83; Resp 18; Pulse Ox 99% on R/A; eh3 21:00 BP 130 / 76; Pulse 82; Resp 18; Pulse Ox 100% on R/A; eh3 MDM: 18:34 Patient medically screened. [facility] 19:58 Differential diagnosis: acute myocardial infarction, acute pericarditis, coronary [facility] artery disease chest wall pain. Data reviewed: vital signs, nurses notes. Management of patient was discussed with the following:. I considered the following discharge prescriptions or medication management in the emergency department Medications were administered in the Emergency Department. See MAR. Independent interpretation of the following test(s) in the Emergency Department X-Ray: My interpretation is No infiltrate appreciated. ED course: Labs unremarkable. Advised to follow-up with cardiology and otherwise given strict return precautions. Patient understood agrees plan of care.. 07/25 18:35 Order name: Basic Metabolic Panel [facility] 07/25 18:35 Order name: CBC with Diff [facility] 07/25 18:35 Order name: Troponin HS [facility] 07/25 18:35 Order name: XRAY Chest (1 view) [facility] 07/25 18:35 Order name: EKG; Complete Time: 18:36 [facility] 07/25 18:35 Order name: Cardiac monitoring; Complete Time: 21:19 [facility] 07/25 18:35 Order name: EKG - Nurse/Tech; Complete Time: 18:44 [facility] 07/25 18:35 Order name: IV Saline Lock; Complete Time: 18:44 [facility] 07/25 18:35 Order name: Labs collected and sent; Complete Time: 21:19 [facility] 07/25 18:35 Order name: O2 Per Protocol; Complete Time: 21:20 [facility] 07/25 18:35 Order name: O2 Sat Monitoring; Complete Time: 21:20 [facility] 07/25 19:03 Order name: RAD; Complete Time: 19:05 [facility] 07/25 19:15 Order name: Basic Metabolic Panel; Complete Time: 19:17 [facility] 07/25 19:15 Order name: Troponin High Sensitivity; Complete Time: 19:17 [facility] 07/25 19:29 Order name: CBC with Automated Diff; Complete Time: 19:30 EDMS EC:34 Rate is 89 beats/min. QRS interval is normal. QT interval is normal. No ST changes jm noted. Administered Medications: 20:30 Drug: morphine 4 mg Route: IVP; Infused Over: 4 mins; Site: left antecubital; eh3 21:19 Follow up: Response: Pain is decreased 3 20:30 Drug: Zofran (Ondansetron) 4 mg Route: IVP; Site: left antecubital; eh3 21:19 Follow up: Response: No adverse reaction eh3 Disposition Summary: 07/25/22 20:00 Discharge Ordered Location: Home jm Condition: Stable jm Diagnosis - Chest pain, unspecified jm Followup: jmm - With: Private Physician - When: 2 - 3 days - Reason: Recheck today's complaints, Continuance of care, Re-evaluation by your physician Discharge Instructions: - Discharge Summary Sheet jm - Nonspecific Chest Pain, Adult [facility] Forms: - Medication Reconciliation Form [facility] - Thank You Letter [facility] - Antibiotic Education [facility] - Prescription Opioid Use [facility] Signatures: Dispatcher [employer] EDMS Anjel Mendenhall PA PA m Adriana Ricardo, RN RN aa5 Teagan Perez, RN RN eh3
[2022-07-25] MEDS ORDERED: MORPHINE 4 MG/ML SYR ONE (20:29)
[2022-07-25] MEDS ORDERED: ONDANSETRON 4 MG/2 ML VIAL ONE (20:29)
[2022-07-25 23:25] VITALS: TEMP 97.8
[2022-07-25 23:27] VITALS: BP 130/76; O2SAT 100
--- NOTE | 2022-07-26 17:33 | EKG ---
Test Date: 2022-07-25 Test Time: 18:42:39 Predatory Animal Trapper: MARY ELLEN MEASUREMENT RESULTS: Intervals: Rate: 89 IN: 182 QRSD: 162 QT: 430 QTc: 523 [place]: P: 42 IN: 182 QRS: -49 T: 129 INTERPRETIVE STATEMENTS: Electronic ventricular pacemaker Compared to ECG 07/21/2022 13:20:12 No significant changes Electronically Signed On 07-26-22 17:31:20 BROOM STITCHER by Kavin Keenan
== END 2022-07-25 22:39 | disposition home or self-care (01) ==
LOC: ER 17:47
DX: R07.89 Other chest pain (principal); I10 Essential (primary) hypertension; Z95.1 Presence of aortocoronary bypass graft; Z88.8 Allergy status to other drugs, medicaments and biological substances
CPT/HCPCS: 93005; 85025; 80048; 36415; 84484; 71045; 96375; 96374; 99284; J2405

== ENCOUNTER 2022-07-26 20:47 | Emergency (ER) | payer OTHER ==
[2012-02-13 06:50] VITALS: BP 128/82
[2022-07-26 21:30] LABS: Absolute Lymphocytes (CBC) 0.9 K/uL (0.7-4.9); Hematocrit 30.6 % (39.6-49.0); MCV 82.4 fL (80-100); MPV 7.5 fL (7.6-11.3); RBC Red Blood Cell Count 3.71 M/uL (4.33-5.43)
[2022-07-26 21:34] LABS: Protime INR 1.39
--- NOTE | 2022-07-26 21:37 | RAD REPORT ---
EXAM DESCRIPTION: RAD - Chest Single View - 07/26/2022 9:30 pm CLINICAL HISTORY: CHEST PAIN Chest pain. COMPARISON: Chest Single View dated 07/25/2022; Chest Single View dated 07/20/2022; Chest Single View da ludmila 07/19/2022; Chest Single View dated 07/16/2022 FINDINGS: Portable technique limits examination quality. Mild pulmonary edema is seen. Small left pleural effusion suspected. Moderate cardiomegaly. Multi reed d pacer/defibrillator device IMPRESSION: Mild to moderate CHF.
--- OUTSIDE RECORDS SUMMARY | 2022-07-26 21:45 | XMS REPORT | Continuity of Care Document ---
:1960 Author Organization [facility] t Address [address] [place] [address] Care Team Providers Name Role Phone MONIKA HALL MD Primary Care Physician [id number] Attending Clinician Unavailable Harshal Zhu Attending Clinician Unavailable Finn Shah Attending Clinician Unavailable Doctor Unassigned, [place] Attending Clinician Unavailable Josselyn Harding RN Attending Clinician Unavailable MARTHA ROWE Attending Clinician Unavailable Ana Maria Meza DO Attending Clinician Martha Rowe MD Attending Clinician Troy KU Attending Clinician Unavailable Troy Wahl Attending Clinician MIHAELA MARTIN Attending Clinician Unavailable Mihaela Martin NP Attending Clinician Micaela Feliciano RN Attending Clinician Unavailable OC BRYSON Attending Clinician Unavailable Curtis Xavier MD Attending Clinician Bryadon HALL, Oc Attending Clinician ANA MARIA MEZA [...] Attending Clinician Alis Garcia MD Attending Clinician [phone] Kaylyn Calvin MD Attending Clinician Tha Gunter MD Attending Clinician THA GUNTER Attending Clinician Unavailable DEIDRE JAIME Attending Clinician Unavailable Johnie Montanez Attending Clinician Unavailable Minnie Cardona MD Attending Clinician Drew Noriega MD Attending Clinician Susanne HALL, Johnie Novak Attending Clinician JOHNIE SKINNER Attending Clinician Unavailable Janeth Leal DO Attending Clinician Caar HALL, Lisa Attending Clinician JOSE SHEARER Attending [...] Unavailable Casper RAE, Michael Gaxiola Attending Clinician [phone] Nova RAE, Cortney Law Attending Clinician [phone] Emy SCRUGGS, Rhonda Attending Clinician Dennis Finley MD Attending Clinician Carlos Allen MD Attending Clinician ALEXIS COX Attending Clinician Unavailable JACQUELYN MONTES DE OCA Attending Clinician Unavailable NICHELLE PALACIOS Attending Clinician Unavailable [id number] Admitting Clinician Unavailable Nika Martin Admitting Clinician [...] Admitting Clinician Unavailable Michael Hernandez Admitting Clinician [phone] Malia HALL, Dennis Arreola Admitting Clinician ALEXIS COX Admitting Clinician Unavailable NICHELLE PALACIOS Admitting Clinician Unavailable Payers Payer Name Policy Type Policy Number Effective Date Expiration Date Garfield daugherty [facility] [id number] [employer] [id number] 2018spring 00:00:00 Agilyx [id number] [facility] [...] Added automatic ally from request for surgery [id number] Troponin I Troponin I Disease Active 2020-0 [...] 00:00: [place] involving involving 00 Medi uriel [place] 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 Type 2 Type 2 Disease Active 2019- Univers diabetes diabetes 8-29 ity of mellitus mellitus 00:00: [place] without without 00 Medical complicati complicati Br anch on, on, without without long-term long-term current current use of use of insulin insulin Essential Essential Disease Active Uni vers hypertensi hypertensi 01-17 it y of on on 00:00: [place] [address] Medical Branch Other Other Disease Active Univers hyperlipid hyperlipid 01-17 it y of emia emia 00:00: [place] [address] Medical Branch Stroke Stroke Disease Active Univers 5-12 ity of 00:00: [place] [address] Medical Branch Left-sided Left-sided Disease Active U nivers weakness weakness - ity of 00:00: [place] [facility] Left sided Left sided Disease Active U nivers numbness numbness - ity of 00:00: [place] [facility] S/P admn S/P admn Disease [...] chest pain 2-22 it y of 00:00: [place] [address] Medical Branch Chest pain Chest pain Problem Active [facility] 00 Medical [place] Coronary CAD Problem Active [facility] artery (coronary [facility] disease artery Patient disease) Medical [place] Diabetic DKA Problem Active [facility] ketoacidos (diabetic Esme es is ketoacidos [facility]ien [facility] es[facility] Hyperglyce Hyperglyce Problem Active [facility] bambi bambi [facility] Hypertensi Hypertensi Problem Active [facility] on on [facility] Pancreatit Pancreatit Problem Active [facility] Uncontroll Uncontroll Problem Active [facility] ed ed [facility] diabetes diabetes Patien t mellitus mellitus [facility] Allergies, Adverse Reactions, Alerts Allergy Allergy Status Severity Reaction(s) Onset Inactive Treating Comm ents Source Name Type Date Date Clinician No Known DA Active U [facility] All[facility]ie 3-22 [place] 00:00: d 00 [facility] No Known DA Active U [facility] Allergie 3- [place] 00:00: d 00 [facility] No Known DA Active U 2017-05 [facility] Allergie 2-31 Clear s 00:00: Mejia 00 [facility] No Known DA Active U 2017-05 [facility] Allergie 2-31 Clear s 00:00: Mjeia 00 [facility] No Known DA Active U [facility] Allergie 3- [place] 00:00: e 00 [facility] NO KNOWN Drug Active Univers [...] University o f Transport Non-Med 00:00:00 00:00:00 [facility] edical Branch Exposure to 2022-01-30 2022-02-09 Not sure University of SARS-CoV-2 00:00:00 20:09:00 [place] Medical (event) Branch Tobacco use and 2022-02-09 2022-02-09 Smokeless tobacco Un iversity of exposure 00:00:00 00:00:00 non-user [facility] Branch Alcohol intake 2022-02-09 2022-02-09 1.71 /d University of 00:00:00 00:00:00 [facility] Tobacco Comment 2022-02-09 2022-02-09 quit 15 years ago Un iversity of 00:00:00 00:00:00 [facility] Education 2021-10-27 2021-10-27 9 University of 00:00:00 00:00:00 [facility] History SDOH 2020-03-16 2020-03-16 3 University o f Financial 00:00:00 00:00:00 [facility] Alcohol Comment 2019-07-18 2019-07-18 quit drinking Univer sity of 00:00:00 00:00:00 2013 but drank [facility] heavily before Branch this Sex Ass[birth year] At [birth year] LUCY Sanders 00:00:00 00:00:00 [facility] Center Smoking Status Start Date Stop Date Source Ex-smoker 2022-02-09 00:00:00 2022-02-09 00:00:00 Universi ty of [facility] Medications Ordered Filled Start Stop Current Ordering Indication Dosage Frequency Signature Comments Components Source Medication Medication Date Date Medication? Clinician (SIG) Name Name aspirin 81 2021- No [id number] 81mg Take 1 Univers mg chewable 9-23 10-24 tablet by it y of tablet 00:00: 04:59 mouth [place] 00 :00 daily with [facility] for 30 days. glipiZIDE 5 2021- No [id number] 5mg Take 1 Univers mg tablet 9-23 10-24 tablet by ity of 00:00: 04:59 mouth in [place] 00 :00 the Medical morning Branch for 30 days. levothyroxi 2021- No [id number] 50ug Take 1 Univers ne 50 mcg 9-23 10-24 tablet by ity of tablet 00:00: 04:59 mouth [place] 00 :00 every Medical morning Branch for 30 days. lisinopriL 2021- No [id number] 2.5mg Take 1 Univers 2.5 mg 9-23 10-24 tablet by ity of tablet 00:00: 04:59 mouth in [place] 00 :00 the Medical morning Branch for 30 days. spironolact 2021- No [id number] 25mg Take 1 Univers one 25 mg 9-23 10-24 tablet by ity of tablet 00:00: 04:59 mouth in [place] 00 :00 the Medical morning Branch for 30 days. tamsulosin 2021- No [id number] .4mg Take 1 Univers 0.4 mg 24 9-23 10-24 capsule by ity of hr capsule 00:00: 04:59 mouth in [facility] 00 :00 the Medical morning Branch for 30 days. aspirin 81 2021- No [id number] 81mg Take 1 Univers mg chewable 9-23 10-24 tablet by it y of tablet 00:00: 04:59 mouth [place] 00 :00 daily with [facility] breakfast Branch for 30 days. glipiZIDE 5 2021- No [id number] 5mg Take 1 Univers mg tablet 9- 10-24 tablet by ity of 00:00: 04:59 mouth in [place] 00 :00 the [facility] morning Coldiron for 30 days. levothyroxi 2021- No [id number] 50ug Take 1 Univers ne 50 mcg 9-23 10-24 tablet by ity of tablet 00:00: 04:59 mouth [place] 00 :00 every [facility] morning Branch for 30 days. lisinopriL 2021- No [id number] 2.5mg Take 1 Univers 2.5 mg 9-23 10-24 tablet by ity of tablet 00:00: 04:59 mouth in [place] 00 :00 the [facility] morning Coldiron for 30 days. spironolact 2021- No [id number] 25mg Take 1 Univers one 25 mg 9-23 10-24 tablet by ity of tablet 00:00: 04:59 mouth in [place] 00 :00 the [facility] for 30 days. tamsulosin 2021- No [id number] .4mg Take 1 Univers 0.4 mg 24 9-23 10-24 capsule by ity of hr capsule 00:00: 04:59 mouth in [facility] 00 :00 the [facility] morning Coldiron for 30 days. sulfur 2021- No [id number] 5mL 5 mL, Unive rs hexafluorid 02-10 Intravenou i ty of e microsphr 16:30: 16:30 s, ONCE, 1 [place] (LUMASON) 00 :00 dose, On Medica l injection 5 [place] Branch mL 02/10/22 at 1130, Routine
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 approving Restricted medication : NINFA CASTILLO K.HHortensia traMADoL 0 Yes 50mg 50 mg, Univers (ULTRAM) 02-10 Oral, ity of tablet 50 15:10: Q6HPRN, [place] mg 57 Starting Medical on [facility] 02/10/22 at 1010, Until Discontinu ed, Routine, Pain (scale 7-10) lisinopriL 0 Yes 2.5mg 2.5 mg, Uni vers (PRINIVIL,Z 02-10 Oral, ity of ESTRIL) 14:00: DAILY, [place] tablet 2.5 00 First dose Med ical mg on [facility] 02/10/22 at 0900, Until Discontinu ed, Routine glipiZIDE Yes 5mg 5 mg, Univers (GLUCOTROL) 02-10 Oral, ity of tablet 5 mg 14:00: DAILY, [place] 00 First dose Medical on [facility] 02/10/22 at 0900, Until Discontinu ed, Routine enoxaparin 0 Yes 30mg 30 mg, Unive rs (LOVENOX) 02-10 Subcutaneo ity of injection 14:00: [place], DAILY, [place] 30 mg 00 First dose Medical on [facility] 02/10/22 at 0900, Until Discontinu ed, Routine levothyroxi Yes 50ug 50 mcg, Uni vers ne 02-10 Oral, ity of (SYNTHROID) 11:00: QAM-0600, [place] tablet 50 00 First dose Medi uriel mcg on [facility] 02/10/22 at 0600, Until Discontinu ed, Routine morpHINE (2 2021- No 2mg 2 mg, Slow Univers mg/mL) 02-10 IV Push, ity of injection 2 08:45: 08:01 ONCE, 1 [place] mg 00 :00 dose, On [facility] 02/10/22 at 0345, Routine furosemide 0 Yes 20mg 20 mg, IV Un char[place] (LASIX) 02-10 Push, Q8H, ity of injection 04:15: First dose [place] 20 mg 00 on [facility] Medical 02/09/22 at Branch 2315, Until [...] s mg 00 First dose Medical on [facility] Branch 02/09/22 at 2315, Until Discontinu ed, Routine gabapentin 2021-0 Yes 300mg 300 mg, Uni vers (NEURONTIN) 02-10 Oral, BID, it y of capsule 300 04:15: First dose [place] mg 00 on Mon [facility] 02/09/22 at Branch 2315, Until Discontinu ed, Routine sennosides 2021-0 Yes 8.6mg 8.6 mg, Uni vers (SENOKOT) 02-10 Oral, BID, ity of tablet 8.6 04:15: First dose [place] mg 00 on Mon [facility] 02/09/22 at Branch 2315, Until Discontinu ed, [...] has mental status changes. atorvastati 2021- No [id number] 40mg Take 1 Univers n 40 mg -12 03-23 tablet by ity of tablet 00:00: 04:59 mouth at [place] 00 :00 bedtime Medical for 30 Branch days. metoprolol 2021- No [id number] 12.5mg Take 0.5 Univers succinate - 10-23 tablets by ity of XL 25 mg 24 00:00: 04:59 mouth in [place] hr tablet 00 :00 the Medical morning Branch for 30 days. atorvastati 2021- No [id number] 40mg Take 1 Univers n 40 mg -12 03-23 tablet by ity of tablet 00:00: 04:59 mouth at [place] 00 :00 bedtime Medical for 30 Branch days. metoprolol 2021- No [id number] 12.5mg Take 0.5 Univers succinate 02-1023 tablets [...] at 0215, 1 mL gabapentin 2021- No [id number] 300mg Take 1 Univers 300 mg 11-05 capsule by ity of capsule 00:00: 04:59 mouth 3 [place] 00 :00 (three) Medical times Branch daily for 10 days. gabapentin 2021- No [id number] 300mg Take 1 Univers 300 mg 11-05 capsule by ity of capsule 00:00: 04:59 mouth 3 [place] 00 :00 (three) Medical times Branch daily for 10 days. aspirin 81 2021- No [id number] 81mg Take 1 Univers mg chewable 6-16 07-17 tablet by it y of tablet 00:00: 04:59 mouth [place] 00 :00 daily for Medical 30 days. Branch aspirin 81 2021- No [id number] 81mg Take 1 Univers mg chewable 6-16 07-17 tablet by it y of tablet 00:00: 04:59 mouth [place] 00 :00 daily for Medical 30 days. Branch aspirin 81 2021- No [id number] 81mg Take 1 Univers mg chewable 6-16 07-17 tablet by it y of tablet 00:00: 04:59 mouth [place] 00 :00 daily for Medical 30 days. Branch proMETHazin Yes [id number] 25mg Take 1 Univers e 25 mg 6-03 tablet by ity of tablet 00:00: mouth [place] 00 every 6 Medical (six) Branch hours as needed for Nausea and Vomiting (N/V). proMETHazin Yes [id number] 25mg Take 1 Univers e 25 mg 6-03 tablet by ity of tablet 00:00: mouth [place] 00 every 6 Medical (six) Branch hours as needed for Nausea and Vomiting (N/V). proMETHazin 2021-0 Yes [id number] 25mg Take 1 Univers e 25 mg 6-03 tablet by ity of tablet 00:00: mouth [place] 00 every 6 Medical (six) Branch hours as needed for Nausea and Vomiting (N/V). proMETHazin 2021-0 Yes [id number] 25mg Take 1 Univers e 25 mg 6-03 tablet by ity of tablet 00:00: mouth [place] 00 every 6 Medical (six) Branch hours as needed for Nausea and Vomiting (N/V). proMETHazin 2021-0 Yes [id number] 25mg Take 1 Univers e 25 mg 6-03 tablet by ity of tablet 00:00: mouth [place] 00 every 6 Medical (six) Branch hours as needed for Nausea and Vomiting (N/V). proMETHazin 2021-0 Yes [id number] 25mg Take 1 Univers e 25 mg 6-03 tablet by ity of tablet 00:00: mouth [place] 00 every 6 Medical (six) Branch hours as needed for Nausea and Vomiting (N/V). fenofibrate 2021- No [id number] 134mg Take 1 Univers micronized 10-19- capsule by it y of 134 mg 00:00: 04:59 mouth [place] capsule 00 :00 daily for Medical 30 days. Branch lisinopriL 2021- No [id number] 2.5mg Take 1 Univers 2.5 mg 10-19- tablet by ity of tablet 00:00: 04:59 mouth [place] 00 :00 daily for Medical 30 days. Branch fenofibrate 2021- No [id number] 134mg Take 1 Univers micronized 10-19- capsule by it y of 134 mg 00:00: 04:59 mouth [place] capsule 00 :00 daily for Medical 30 days. Branch lisinopriL 2021- No [id number] 2.5mg Take 1 Univers 2.5 mg 10-19- tablet by ity of tablet 00:00: 04:59 mouth [place] 00 :00 daily for Medical 30 days. Branch fenofibrate 2021- No [id number] 134mg Take 1 Univers micronized -19 12- capsule by it y of 134 mg 00:00: 04:59 mouth [place] capsule 00 :00 daily for Medical 30 days. Branch lisinopriL 2021- No [id number] 2.5mg Take 1 Univers 2.5 mg -19 12- tablet by ity of tablet 00:00: 04:59 mouth [place] 00 :00 daily for Medical 30 days. Branch furosemide 2021- No [id number] 40mg Take 1 Univers 40 mg 5-30 -30 tablet by ity of tablet 00:00: 04:59 mouth [place] 00 :00 every Medical morning Branch and evening for 30 days. apixaban 5 2021- No [id number] 5mg Take 1 Univ ers mg tablet -30 -30 tablet by ity of 00:00: 04:59 mouth 2 [place] 00 :00 (two) Medical times Coldiron daily for 30 days. Indication s: atrial fibrillati on calcitrioL 2021- No [id number] .5ug Take 1 Univers 0.5 mcg -30 -30 capsule by ity o f capsule 00:00: 04:59 mouth [place] 00 :00 daily for Medical 30 days. Coldiron insulin NPH 2021- No [id number] 5U inject 5 Univers (HUMULIN N 5-30 -30 Units ity of NPH U-100 00:00: 04:59 under the [place] INSULIN) 00 :00 skin every Medic al 100 unit/mL evening Branc h injection for 30 days. atorvastati 2021- No [id number] 40mg Take 1 Univers n 40 mg 5-30 -30 tablet by ity of tablet 00:00: 04:59 mouth at [place] 00 :00 bedtime Medical for 30 Branch days. carvediloL 2021- No [id number] 3.125mg Take 1 Univers 3.125 mg 5-30 -30 tablet by ity o f tablet 00:00: 04:59 mouth 2 [place] 00 :00 (two) Medical times Coldiron daily with meals for 30 days. furosemide 2021- No [id number] 40mg Take 1 Univers 40 mg 5-30 [...] s: atrial fibrillati on calcitrioL 2021- No [id number] .5ug Take 1 Univers 0.5 mcg 5-30 06-30 capsule by ity o f capsule 00:00: 04:59 mouth [place] 00 :00 daily for Medical 30 days. Branch insulin NPH 2021- No [id number] 5U inject 5 Univers (HUMULIN N 5-30 06-30 Units ity of NPH U-100 00:00: 04:59 under the [place] INSULIN) 00 :00 skin every Medic al 100 unit/mL evening Branc h injection for 30 days. atorvastati 2021- No [id number] 40mg Take 1 Univers n 40 mg 5-30 06-30 tablet by ity of tablet 00:00: 04:59 mouth at [place] 00 :00 bedtime Medical for 30 Branch days. carvediloL 2021- No [id number] 3.125mg Take 1 Univers 3.125 mg 5-30 06-30 tablet by ity o f tablet 00:00: 04:59 mouth 2 [place] 00 :00 (two) Medical times Branch daily with meals for 30 days. furosemide 2021- No [id number] 40mg Take 1 Univers 40 mg 5-30 [...] s: atrial fibrillati on calcitrioL 2021- No [id number] .5ug Take 1 Univers 0.5 mcg 5-30 06-30 capsule by ity o f capsule 00:00: 04:59 mouth [place] 00 :00 daily for Medical 30 days. Branch insulin NPH 2021- No [id number] 5U inject 5 Univers (HUMULIN N 5-30 06-30 Units ity of NPH U-100 00:00: 04:59 under the [place] INSULIN) 00 :00 skin every Medic al 100 unit/mL evening Branc h injection for 30 days. atorvastati 2021- No [id number] 40mg Take 1 Univers n 40 mg 5-30 -30 tablet by ity of tablet 00:00: 04:59 mouth at [place] 00 :00 bedtime Medical for 30 Branch days. carvediloL 2021- No [id number] 3.125mg Take 1 Univers 3.125 mg 5-30 -30 tablet by ity o f tablet 00:00: 04:59 mouth 2 [place] 00 :00 (two) Medical times Branch daily with meals for 30 days. metFORMIN Yes [id number] 500mg Take 1 U nivers 500 mg 3-02 tablet by ity of tablet 00:00: mouth [place] (two) Medical times Branch daily with meals. metFORMIN Yes [id number] 500mg Take 1 U nivers 500 mg 3-02 tablet by ity of tablet 00:00: mouth [place] (two) Medical times Branch daily with meals. metFORMIN Yes [id number] 500mg Take 1 U nivers 500 mg 3-02 tablet by ity of tablet 00:00: mouth [place] (two) Medical times Branch daily with meals. metFORMIN Yes [id number] 500mg Take 1 U nivers 500 mg 3-02 tablet by ity of tablet 00:00: mouth [place] (two) Medical times Branch daily with meals. metFORMIN Yes [id number] 500mg Take 1 U nivers 500 mg 3-02 tablet by ity of tablet 00:00: mouth [place] (two) Medical times Branch daily with meals. metFORMIN 0 Yes [id number] 500mg Take 1 U nivers 500 mg 3-02 tablet by ity of tablet 00:00: mouth 2 [place] (two) Medical times Branch daily with meals. albuterol Yes [id number] 2{puff} Inhale 2 Univers 90 2-21 Puffs 2 ity of mcg/actuati 00:00: (two) [place] on inhaler 00 times Medical daily. Branch collagenase Yes [id number] Use as Univers 250 2-21 directed ity of unit/gram 00:00: by office Juan J as ointment 00 Medical Branch cyclobenzap Yes [id number] 10mg Take 1 Univers rine 10 mg 2-21 tablet by ity of tablet 00:00: mouth 2 [place] 00 (two) Medical times Branch daily as needed for Muscle Spasms. dextrometho Yes [id number] 10mL Take 10 mL Univers rphan-guaif 2-21 [...] for Pain (scale 4-6). melatonin 3 Yes [id number] 3mg Take 1 Univers mg tablet 2-21 tablet by ity o f 00:00: mouth at [place] 00 bedtime. Medical Branch ondansetron Yes [id number] 4mg Take 1 Univers 4 mg 2-21 tablet by ity of disintegrat 00:00: mouth [place] ing tablet 00 every 8 Medica l (eight) Branch hours as needed for Nausea and Vomiting (N/V). albuterol Yes [id number] 2{puff} Inhale 2 Univers 90 2-21 Puffs 2 ity of mcg/actuati 00:00: (two) [place] on inhaler 00 times Medical daily. Branch collagenase Yes [id number] Use as Univers 250 2-21 directed ity of unit/gram 00:00: by office [place] J as ointment 00 Medical Branch cyclobenzap Yes [id number] 10mg Take 1 Univers rine 10 mg 2-21 tablet by ity of tablet 00:00: mouth 2 [place] 00 (two) Medical times Branch daily as needed for Muscle Spasms. dextrometho Yes [id number] 10mL Take 10 mL Univers rphan-guaif 2-21 [...] for Pain (scale 4-6). melatonin 3 Yes [id number] 3mg Take 1 Univers mg tablet 2-21 tablet by ity o f 00:00: mouth at [place] 00 bedtime. Medical Branch ondansetron Yes [id number] 4mg Take 1 Univers 4 mg 2-21 tablet by ity of disintegrat 00:00: mouth [place] ing tablet 00 every 8 Medica l (eight) Branch hours as needed for Nausea and Vomiting (N/V). albuterol Yes [id number] 2{puff} Inhale 2 Univers 90 2-21 Puffs 2 ity of mcg/actuati 00:00: (two) [place] on inhaler 00 times Medical daily. Branch collagenase Yes [id number] Use as Univers 250 2-21 directed ity of unit/gram 00:00: by office Juan J as ointment 00 Medical Branch cyclobenzap Yes [id number] 10mg Take 1 Univers rine 10 mg 2-21 tablet by ity of tablet 00:00: mouth 2 [place] 00 (two) Medical times Branch daily as needed for Muscle Spasms. dextrometho Yes [id number] 10mL Take 10 mL Univers rphan-guaif 2-21 [...] for Pain (scale 4-6). melatonin 3 Yes [id number] 3mg Take 1 Univers mg tablet 2-21 tablet by ity o f 00:00: mouth at [place] 00 bedtime. Medical Branch ondansetron Yes [id number] 4mg Take 1 Univers 4 mg 2-21 tablet by ity of disintegrat 00:00: mouth [place] ing tablet 00 every 8 Medica l (eight) Branch hours as needed for Nausea and Vomiting (N/V). albuterol Yes [id number] 2{puff} Inhale 2 Univers 90 2-21 Puffs 2 ity of mcg/actuati 00:00: (two) [place] on inhaler 00 times Medical daily. Branch collagenase Yes [id number] Use as Univers 250 2-21 directed ity of unit/gram 00:00: by office [place] J as ointment 00 Medical Branch cyclobenzap Yes [id number] 10mg Take 1 Univers rine 10 mg 2-21 tablet by ity of tablet 00:00: mouth 2 [place] 00 (two) Medical times Branch daily as needed for Muscle Spasms. melatonin 3 Yes [id number] 3mg Take 1 Univers mg tablet 2-21 tablet by ity o f 00:00: mouth at [place] 00 bedtime. Medical Branch ondansetron Yes [id number] 4mg Take 1 Univers 4 mg 2-21 tablet by ity of disintegrat 00:00: mouth [place] ing tablet 00 every 8 Medica l (eight) Branch hours as needed for Nausea and Vomiting (N/V). albuterol Yes [id number] 2{puff} Inhale 2 Univers 90 2-21 Puffs 2 ity of mcg/actuati 00:00: (two) [place] on inhaler 00 times Medical daily. Branch collagenase Yes [id number] Use as Univers 250 2-21 directed ity of unit/gram 00:00: by office [place] J as ointment 00 Medical Branch cyclobenzap Yes [id number] 10mg Take 1 Univers rine 10 mg 2-21 tablet by ity of tablet 00:00: mouth 2 [place] 00 (two) Medical times Branch daily as needed for Muscle Spasms. melatonin 3 Yes [id number] 3mg Take 1 Univers mg tablet 2-21 tablet by ity o f 00:00: mouth at [place] 00 bedtime. Medical Branch ondansetron Yes [id number] 4mg Take 1 Univers 4 mg 2-21 tablet by ity of disintegrat 00:00: mouth [place] ing tablet 00 every 8 Medica l (eight) Branch hours as needed for Nausea and Vomiting (N/V). albuterol Yes [id number] 2{puff} Inhale 2 Univers 90 2-21 Puffs 2 ity of mcg/actuati 00:00: (two) [place] on inhaler 00 times Medical daily. Branch collagenase Yes [id number] Use as Univers 250 2-21 directed ity of unit/gram 00:00: by office [place] J as ointment 00 Medical Branch cyclobenzap Yes [id number] 10mg Take 1 Univers rine 10 mg 2-21 tablet by ity of tablet 00:00: mouth 2 [place] 00 (two) Medical times Branch daily as needed for Muscle Spasms. melatonin 3 Yes [id number] 3mg Take 1 Univers mg tablet 2-21 tablet by ity o f 00:00: mouth at [place] 00 bedtime. Medical Branch ondansetron Yes [id number] 4mg Take 1 Univers 4 mg 2-21 tablet by ity of disintegrat 00:00: mouth [place] ing tablet 00 every 8 Medica l (eight) Branch hours as needed for Nausea and Vomiting (N/V). dextrometho 2021- No [id number] 10mL Take 10 mL Univers rphan-guaif 07-12 [...] Brooke Frankel 00:00: 00:00 Patient 00 :00 [facility] Diflunisal Diflunisal 2015- No Todd Wynn [address] [facility] (Dolobid) (Dolobid) 01-17 [facility] 500 Mg 500 Mg 00:00: 00:00 Patient Tablet, 500 Tablet, 500 00 :00 M edical Mg Oral Mg Oral Center Ondansetron Ondansetron 2015- No Todd Wynn [address] [facility] Hcl Hcl 01-17 [place] [facility] (Zofran*) 4 (Zofran*) 4 [...] Daily [facility] Mesylate Mesylate [facility] (Cardura) 8 (Cardura) 8 P [...] [facility] nophen nophen needed for [place] ([place] [facility] [facility] 10-325 10-325 Center Tablet) 1 [...] ukes Mg Tablet Mg Tablet Patie nt [facility] Nitroglycer Nitroglycer Yes As Needed [facility] (Nitrostat) (Nitrostat) P atient 0.4 Mg 0.4 Mg Medical Tab.subl Tab.subl Center Omeprazole Omeprazole Yes [address] 20 Mg 20 Mg [facility] Capsule.dr [facility]. [facility] Simvastatin Simvastatin Yes [address] 80 Mg 80 Mg [facility] Tablet Tablet Patient [facility] Tamsulosin Tamsulosin Yes Daily [facility] Hcl 0.4 Mg Hcl 0.4 Mg Esme es Cap.er.24h Cap.er.24h [facility] Tramadol Tramadol Yes [address] Hcl Hcl Daily as [facility] (Ultram) 50 (Ultram) 50 needed for Patient Mg Tablet Mg Tablet [facility] Venlafaxine Venlafaxine Yes [address] Hcl 75 Mg Hcl 75 Mg [facility] Tab Tab Patient [facility] Albuterol Albuterol 2017- No 1 [...] 06-17 [facility] Capsule., Capsule., 00:00 Patient :00 [facility] Insulin Insulin 90 Twice A [facility] [...] Mg Oral 25 Mg Oral :00 [facility] Albuterol Albuterol As Needed [facility] Sulfate Sulfate 11-23 as needed Esme es (Ventolin (Ventolin 00:00 for Manjula ent Hfa) 18 Gm Hfa) 18 Gm :00 [facility] Medical Hfa.aer.ad, Hfa.aer.ad, Of Breath [place] 90 Mcg 90 Mcg Inhalation Inhalation Dicyclomine Dicyclomine Twice A [facility] 10 Mg Hcl 10 Mg 11-23 Day Luke s Capsule, 10 Capsule, 10 00:00 Patient Mg Oral Mg Oral :00 [facility] Methocarbam Methocarbam [address] ol [...] Mg Oral 600 Mg Oral :00 M [facility] Pregabalin Pregabalin 2013- No 150 Twice A [...] Immunizations Ordered Filled Immunization Date Status Comments [facility] e Immunization Name Name Influenza Virus 2021-01-16 Completed Universit y of Vaccine 00:00:00 [facility] Influenza Virus 2021-01-16 Completed Universit y of Vaccine 00:00:00 [facility] Influenza Virus 2021-01-16 Completed Universit y of Vaccine 00:00:00 [facility] Influenza Virus 2021-01-16 Completed Universit y of Vaccine 00:00:00 [facility] Influenza Virus 2021-01-16 Completed Universit y of Vaccine 00:00:00 [facility] Influenza Virus 2021-01-16 Completed Universit y of Vaccine 00:00:00 [facility] SARS-COV-2 COVID-19 2020-10-16 Completed Unive rsity of PEDRO/J&J VACCINE 00:00:00 [facility] SARS-COV-2 COVID-19 2020-10-16 Completed Unive rsity of PEDRO/J&J VACCINE 00:00:00 [facility] SARS-COV-2 COVID-19 2020-10-16 Completed Unive rsity of PEDRO/J&J VACCINE 00:00:00 [facility] SARS-COV-2 COVID-19 2020-10-16 Completed Unive rsity of PEDRO/J&J VACCINE 00:00:00 [facility] SARS-COV-2 COVID-19 2020-10-16 Completed Unive rsity of PEDRO/J&J VACCINE 00:00:00 [facility] SARS-COV-2 COVID-19 2020-10-16 Completed Unive ity of PEDRO/J&J VACCINE 00:00:00 [facility] Influenza Virus 2020-01-21 Completed Universit y of Vaccine 00:00:00 [facility] Influenza Virus 2020-01-21 Completed Universit y of Vaccine 00:00:00 [facility] Influenza Virus 2020-01-21 Completed Universit y of Vaccine 00:00:00 [facility] Influenza Virus 2020-01-21 Completed Universit y of Vaccine 00:00:00 [facility] Influenza Virus 2020-01-21 Completed Universit y of Vaccine 00:00:00 [facility] Influenza Virus 2020-01-21 Completed Universit y of Vaccine 00:00:00 [facility] Zoster Vaccine 2019-07-17 Completed University of Recombinant 00:00:00 [facility] Zoster Vaccine 2019-07-17 Completed University of Recombinant 00:00:00 [facility] Zoster Vaccine 2019-07-17 Completed University of Recombinant 00:00:00 [facility] Zoster Vaccine 2019-07-17 Completed University of Recombinant 00:00:00 [facility] Zoster Vaccine 2019-07-17 Completed University of Recombinant 00:00:00 [facility] Zoster Vaccine 2019-07-17 Completed University of Recombinant 00:00:00 [facility] Td 2019-03-29 Completed University of 00:00:00 [facility] Td 2019-03-29 Completed University of 00:00:00 [facility] Td 2019-03-29 Completed University of 00:00:00 [facility] Td 2019-03-29 Completed University of 00:00:00 [facility] Td 2019-03-29 Completed University of 00:00:00 [facility] Td 2019-03-29 Completed University of 00:00:00 [facility] Influenza Virus 2018-02-18 Completed Universit y of Vaccine 00:00:00 [facility] Pneumococcal 2018-02-18 Completed University o f Polysaccharide, 00:00:00 [place] [facility] PPSV23 (PNEUMOVAX) [place] Influenza Virus 2018-02-18 Completed Universit y of Vaccine 00:00:00 [facility] Pneumococcal 2018-02-18 Completed University o f Polysaccharide, 00:00:00 [place] [facility] PPSV23 (PNEUMOVAX) [place] Influenza Virus 2018-02-18 Completed Universit y of Vaccine 00:00:00 [facility] Pneumococcal 2018-02-18 Completed University o f Polysaccharide, 00:00:00 [place] [facility] PPSV23 (PNEUMOVAX) Branch Influenza Virus 2018-02-18 Completed Universit y of Vaccine 00:00:00 [facility] Pneumococcal 2018-02-18 Completed University o f Polysaccharide, 00:00:00 [place] [facility] PPSV23 (PNEUMOVAX) Branch Influenza Virus 2018-02-18 Completed Universit y of Vaccine 00:00:00 [facility] Pneumococcal 2018-02-18 Completed University o f Polysaccharide, 00:00:00 [place] [facility] PPSV23 (PNEUMOVAX) Branch Influenza Virus 2018-02-18 Completed Universit y of Vaccine 00:00:00 [facility] Pneumococcal 2018-02-18 Completed University o f Polysaccharide, 00:00:00 [place] [facility] PPSV23 (PNEUMOVAX) Branch Influenza Virus 2008-03-19 Completed Universit y of Vaccine 00:00:00 [facility] Pneumococcal 2008-03-19 Completed University o f Polysaccharide, 00:00:00 [place] [facility] PPSV23 (PNEUMOVAX) Branch Influenza Virus 2008-03-19 Completed Universit y of Vaccine 00:00:00 [facility] Pneumococcal 2008-03-19 Completed University o f Polysaccharide, 00:00:00 [facility] ical PPSV23 (PNEUMOVAX) Branch Influenza Virus 2008-03-19 Completed Universit y of Vaccine 00:00:00 [facility] Pneumococcal 2008-03-19 Completed University o f Polysaccharide, 00:00:00 [facility] ical PPSV23 (PNEUMOVAX) Branch Influenza Virus 2008-03-19 Completed Universit y of Vaccine 00:00:00 [facility] Pneumococcal 2008-03-19 Completed University o f Polysaccharide, 00:00:00 [place] [facility] PPSV23 (PNEUMOVAX) Branch Influenza Virus 2008-03-19 Completed Universit y of Vaccine 00:00:00 [facility] Pneumococcal 2008-03-19 Completed University o f Polysaccharide, 00:00:00 [place] [facility] PPSV23 (PNEUMOVAX) Branch Influenza Virus 2008-03-19 Completed Universit y of Vaccine 00:00:00 [facility] Pneumococcal 2008-03-19 Completed University o f Polysaccharide, 00:00:00 [place] [facility] PPSV23 (PNEUMOVAX) [place] Vital Signs Vital Name Observation Time Observation Value Comments Source Systolic blood 2022-02-10 105 mm[Hg] University of pressure 16:35:00 [facility] Branch Diastolic blood 2022-02-10 57 mm[Hg] University o f pressure 16:35:00 [facility] Branch Heart rate 2022-02-10 65 /min University of 16:35:00 [facility] Body temperature 2022-02-10 36.22 Sandy University of 16:35:00 [facility] Respiratory rate 2022-02-10 18 /min University of 16:35:00 [facility] Oxygen saturation 2022-02-10 98 /min University of in Arterial blood 16:35:00 [place] [facility] by Pulse oximetry Branch Body weight 2022-02-10 74.98 kg University of 08:16:00 [facility] BMI 2022-02-10 25.89 kg/m2 University of 08:16:00 [facility] Body height 2022-02-10 170.2 cm Height before University of 01:18:00 Bilat BKA [facility] Systolic blood 2021-11-09 124 mm[Hg] University of pressure 23:00:00 [facility] Diastolic blood 2021-11-09 69 mm[Hg] University o f pressure 23:00:00 [facility] Branch Heart rate 2021-11-09 72 /min University of 23:00:00 [facility] Respiratory rate 2021-11-09 25 /min University of 23:00:00 [facility] Oxygen saturation 2021-11-09 98 /min University of in Arterial blood 23:00:00 [facility] uriel by Pulse oximetry Branch Body temperature 2021-11-09 37.22 Sandy University of 20:28:39 [place] [facility] Body height 2021-11-09 170.2 cm University of 20:16:00 [facility] Body weight 2021-11-09 71.215 kg University of 20:16:00 [facility] BMI 2021-11-09 24.59 kg/m2 University of 20:16:00 [facility] Systolic blood 2021-11-05 134 mm[Hg] University of pressure 10:00:00 [facility] Diastolic blood 2021-11-05 78 mm[Hg] University o f pressure 10:00:00 [facility] Branch Heart rate 2021-11-05 81 /min University of 10:00:00 [facility] Body temperature 2021-11-05 36.28 Sandy University of 08:10:00 [facility] Respiratory rate 2021-11-05 18 /min [facility] 08:00:00 [facility] Oxygen saturation 2021-11-05 99 /min [facility] Arterial blood 08:00:00 [facility] by Pulse oximetry [place] Body height 2021-11-05 170.2 cm [facility] 05:48:00 [facility] Body weight 2021-11-05 71.215 kg [facility] 05:48:00 [facility] BMI 2021-11-05 24.59 kg/m2 [facility] 05:48:00 [facility] Procedures Procedure Date / Time Performing Clinician Source Performed INSURANCE CORRESPONDENCE 2022-04-19 06:01:00 Doctor Unassigned, [facility] Dexter [facility] TRANSTHORACIC ECHO (TTE) 2022-02-10 13:16:00 Martha Rowe [facility] COMPLETE W/ CONTRAST Medical Bra nch PHOSPHORUS 2022-02-10 10:22:00 Martha Rowe [facility] MAGNESIUM 2022-02-10 10:22:00 Martha Rowe [facility] TROPONIN I 2022-02-10 10:22:00 Martha Rowe [facility] COMP. METABOLIC PANEL 2022-02-10 10:22:00 Martha Rowe [facility] ([id number]) [facility] CBC WITH DIFF 2022-02-10 10:22:00 Martha Rowe [facility] CREATINE KINASE 2022-02-10 04:37:00 Martha Rowe [facility] URIC ACID 2022-02-10 04:37:00 Martha Rowe [facility] FERRITIN SERUM 2022-02-10 04:37:00 Martha Rowe [facility] FOLATE 2022-02-10 04:37:00 Martha Rowe [facility] TROPONIN I 2022-02-10 04:37:00 Martha Rowe [facility] THYROID STIMULATING 2022-02-10 04:37:00 Martha Rowe [facility] HORMONE Medical Branch LIPID PANEL ([id number])(TOTAL 2022-02-10 04:37:00 Martha Rowe [facility] CHOLESTEROL, Medical Branch TRIGLYCERIDES, HDL) IRON PANEL 2022-02-10 04:37:00 Martha Rowe [facility] GLYCOSYLATED HEMOGLOBIN 2022-02-10 04:37:00 Martha Rowe [facility] (A1C) [facility] N-TERMINAL PRO-BNP 2022-02-10 04:37:00 Martha Rowe [facility] VITAMIN D, 25-OH 2022-02-10 04:37:00 Jae daisy [facility] COVID-19 (ID NOW RAPID 2022-02-10 04:37:00 Martha Rowe [facility] TESTING) [facility] B-TYPE NATRIURETIC FACTOR 2022-01-30 18:10:00 CH I [facility] (BNP) Center XR CHEST 1 VW 2021-11-09 21:07:00 Troy Ku Mckenzie [facility] POCT GLUCOSE (AUTOMATED) 2021-11-09 20:25:00 Troy Ku [facility] MAGNESIUM 2021-11-09 20:19:00 Troy Ku [facility] TROPONIN I 2021-11-09 20:19:00 Troy Ku [facility] COMP. METABOLIC PANEL 2021-11-09 20:19:00 Troy Ku [facility] ([id number]) [facility] CBC WITH DIFF 2021-11-09 20:19:00 Troy Ku [facility] N-TERMINAL PRO-BNP 2021-11-09 20:19:00 Troy Ku [facility] XR CHEST 1 VW 2021-11-05 06:38:35 Mihaela Martin [facility] [id number] 2020-08-11 00:00:00 ALDMO [facility] [id number] 2020-08-11 00:00:00 ALDMO [facility] [id number] 2020-08-11 00:00:00 ALDMO [facility] [id number] 2020-08-11 00:00:00 ALDMO [facility] Computed tomography 2017-10-24 00:00:[address] [facility] kashif Patient angiography of brain Medical Agustin ter CT angiography of chest 2017-10-23 00:00:00 KHAI WAHL V [facility] Computed tomography of 2017-10-23 00:00:00 KHAI WAHL V [facility] without [facility] contrast [...] Clinicians Facility Department ID 2021-06-17 Outpatient [id number] ENCKY MALDONADO [id number] [facility] 10:24:03 [id number] [facility] 2021-06-17 Outpatient 3 [id number] ENCKY REF [id number] [facility] 10:22:04 [id number] [facility] 2021-03-22 Emergency [facility] [id number] Univers 15:25:20 ity of [facility] 2021-03-22 Emergency [facility] [id number] Univers 10:56:41 ity of [facility] 2021-03-21 Emergency [facility] [id number] Univers 18:15:08 ity of [facility] 2021-03-21 Emergency [facility] [id number] Univers 17:18:22 ity of [facility] 2021-03-21 Emergency [facility] [id number] Univers 12:58:19 ity of [facility] 2021-03-21 Emergency [facility] [id number] Univers 04:06:22 ity of [facility] 2021-03-21 Emergency [facility] [id number] Univers 00:12:27 ity of [facility] 2021-03-20 Emergency [facility] [id number] Univers 00:55:44 ity of [facility] 2021-03-19 Emergency [facility] [id number] Univers 17:28:47 ity of [facility] 2021-03-19 Emergency [facility] [id number] Univers 03:16:03 ity of [facility] 2021-03-18 Emergency [facility] [id number] Univers 13:56:50 ity of [facility] 2020-08-23 Inpatient HCACL FERNANDO [id number] [facility] 17:41:00 84 [facility] 2020-04-04 Inpatient Marko, HCAMN HCAMN [id number] [facility] 14:40:00 Edward [facility] 2019-10-15 Inpatient RADHA Shah, HCAPM ENDO [id number] [facility] 15:30:00 Finn [id number] [facility] [place] 2022-04-19 2022-04-19 Orders Doctor JOSE 1.2.840.114 [id number] Univers 00:00:00 00:00:00 Only Unassigned, [place] [id number] [facility] [id number] Juan J as [id number] [facility] 009 Branch 2022-02-11 2022-02-11 Transition LATRICE Harding 1.2.840.114 [id number] Univers 00:00:00 00:00:00 of Care Josselyntoni DUQUE [id number] it y of [id number] [id number] [facility] 403 Branch 2022-02-09 2022-02-10 Outpatient U JAE OHSCOTT DARIUS [id number] Univers 19:53:00 13:45:00 MARTHA ity of [facility] 2022-02-09 2022-02-10 Hospital Ana Maria Meza [facility] 1.2.840.114 [id number] Univers 19:53:00 13:45:00 Encounter Martha Rowe [id number] ity of [id number] [id number] [facility] 081 Branch 2022-01-30 2022-01-30 Lab [facility] [id number] 00:00:00 00:00:00 Requisitio Esme [facility] 2022-01-30 2022-01-30 Lab [facility] [id number] 00:00:00 00:00:00 Requisitio Esme [facility] 2021-11-09 2021-11-09 Emergency X Troy KU [facility] ERT [id number] Univers 15:15:00 18:32:00 ity of [facility] 2021-11-09 2021-11-09 Emergency Troy Ku [facility] 1.2.840.114 [id number] Univers 15:15:00 18:32:00 Mckenzie PEREZ [id number] i ty of [place] [id number] [facility] [id number] [place] [id number] 2021-11-05 2021-11-05 Emergency X VERONICA [facility] ERT [id number] Univers 00:44:00 06:53:00 MIHAELA baugh [facility] 2021-11-05 2021-11-05 Emergency [facility] [id number] [id number] Univers 00:44:00 06:53:00 Mihaela PEREZ [id number] ity of [facility] [id number] [facility] [id number] [facility] 084 Branch 2021-11-04 2021-11-04 Transition Feliciano CLAUDETTETanya 1.2.840.114 [id number] Univers 00:00:00 00:00:00 of Jennifer DUQUE [id number] it y of [place] [id number] [facility] [id number] [facility] 403 Branch 2021-11-02 2021-11-03 Outpatient X BRAYDON [facility] [id number] Univers 22:35:00 15:46:00 OC baugh [facility] 2021-11-02 2021-11-03 Emergency Curtis Xavier [facility] 1.2.840. 114 [id number] Univers 22:35:00 15:46:00 Oc Bryson [id number] ity of [place] [id number] [facility] [id number] [facility] 081 Branch 2021-11-02 2021-11-03 Outpatient X BRAYDON [facility] DARIUS [id number] Univers 22:35:00 15:46:00 OC itvashti [facility] 2021-11-01 2021-11-01 Transition LATRICE Feliciano 1.2.840.114 [id number] Univers 00:00:00 00:00:00 of Jennifer [place] [id number] it y umu [place] [id number] [facility] [id number] [facility] 403 Branch 2021-10-27 2021-10-29 Outpatient X DERRICK [facility] [id number] Univers 17:41:00 14:03:00 ANA MARIA vashti [facility] 2021-10-27 2021-10-29 Emergency Jameson Mejia [facility] 1.2.840. 114 [id number] Univers 17:41:00 14:03:00 Lizett Gerardo [id number] ity of [place] [id number] [facility] [id number] [address] 2021-10-27 2021-10-29 Outpatient X DERRICK [facility] DARIUS [id number] Univers 17:41:00 14:03:00 ANA MARIA baugh [facility] 2021-10-21 2021-10-22 Emergency [facility] ERT [id number] Univers 20:24:00 04:18:00 JYOTI [facility] 2021-10-21 2021-10-22 Emergency [facility] [id number] Univers 20:24:00 04:18:00 Jyoti PEREZ [id number] i ty of [place] [id number] [facility] [id number] [place] 249384 Branch 2021-10-20 2021-10-20 Transition LATRICE Aleman 1.2.840.114 [id number] Univers 00:00:00 00:00:00 of Jennifer DU[place] [id number] ity [id number] [id number] [facility] 403 Branch 2021-10-15 2021-10-18 Outpatient X DERRICK [facility] DARIUS [id number] Univers 16:42:00 13:52:00 ANA MARIA baugh [facility] 2021-10-15 2021-10-18 Emergency Jameson Mejia [facility] 1.2.840. 114 [id number] Univers 16:42:00 13:52:00 Ana Maria Meza [id number] ity of [id number] [facility] [id number] [facility] 081 Branch 2021-07-23 2021-07-23 Transition LATRICE Farooq 1.2.840.114 [id number] Univers 00:00:00 00:00:00 of Care Marcellaprakash DU[place] [id number] i ty of [id number] [id number] [facility] 403 [place] 2021-07-19 2021-07-22 Inpatient X [facility] DARIUS [id number] Univers 09:10:00 17:00:00 GEOFFREY baugh [facility] 2021-07-19 2021-07-22 [facility] Brandyn Dumont [facility] 1.2.840.1 14 [id number] Univers 09:10:00 17:00:00 Encounter Geoffrey Hill [facility] [id number] ity of [place]2.[place].2.[place] [id number] [facility] 109 Branch ([facility]) 2021-07-21 2021-07-21 Outpatient Wong_H VFP VF [id number] Village 06:58:00 06:58:00 [id number] Family Practic e 2021-07-13 2021-07-13 Transition LATRICE Aleman 1.2.840.114 [id number] Univers 00:00:00 00:00:00 of Care Rico Andrew [place] [id number] [place] [id number] [address] 2021-06-28 2021-07-12 Inpatient X ANGEL [facility] DARIUS [id number] Univers 10:43:00 18:25:00 AMBIKA [facility] 2021-06-28 2021-07-12 [facility] Jameson Mejia [facility] 1.2.840.1 14 [id number] Univers 10:43:00 18:25:00 Encounter Troy Ku [id number] ity of Ambika Fernandez [place] 4.2.7.2.686 [facility] [id number] [facility] 081 Branch 2021-02-15 2021-02-15 Outpatient [facility] [id number] Univers 15:00:00 15:00:00 ALECIA [facility] 2021-01-11 2021-01-11 [facility] [id number] Univers 10:45:00 10:45:00 GINA baugh o anuj [facility] 2021-01-05 2021-01-05 Transition Latrice Aleman 1.2.840.114 [id number] Univers 00:00:00 00:00:00 of Care Rico Duque [id number] ity of [place] [id number] [place] [id number] [facility] 403 Branch 2021-01-01 2021-01-04 [facility] Wayne Can [facility] 1.2.840.1 14 [id number] Univers 14:18:00 18:10:00 Encounter Lizett Gerardo [id number] ity of [id number] [id number] [facility] 081 Branch 2021-01-01 2021-01-01 Orders Doctor GARCIA 1.2.840.114 [id number] Univers 00:00:00 00:00:00 Only Unassigned, [place] [id number] ity of [place] [facility] 4.2.7.2.686 Juan J as [id number] [facility] 009 Branch 2020-12-17 2020-12-17 Transition Latrice Harding 1.2.840.114 [id number] Univers 00:00:00 00:00:00 of Care Josselyn [place] [id number] it y of [place] [id number] [facility] 403 Branch 2020-12-14 2020-12-16 Emergency Jyoti Cedeno S [facility] 1.2.840.1 [id number] Univers 17:50:00 17:46:00 Ana Maria Meza [id number] ity of [place] [id number] [facility] 081 Branch 2020-11-16 2020-11-16 Orders Doctor JOSE 1.2.840.114 [id number] Univers 00:00:00 00:00:00 Only Unassigned, [place] [id number] ity of [place] [facility] 4.2.7.2.686 Juan J [id number] [facility] 009 Branch 2020-10-30 2020-11-05 Inpatient EM Debi, [facility] [id number] [facility] 16:50:00 13:52:00 Fede [address]78 [facility] 2020-10-31 2020-10-31 Outpatient ANNEL Carrera LABO [id number] [facility] 08:22:00 08:22:00 Feed 73 [facility] 2020-10-28 2020-10-28 Hospital Radiology [facility] 1.2.840.114 [id number] Univers 08:30:17 23:59:00 Encounter Sera [id number] ity of [place] [id number] [facility] 807 Branch 2020-10-28 2020-10-28 Hospital Radiology [facility] 1.2.840.114 [id number] 08:30:17 23:59:00 Encounter Gilbert [id number] [place] 4.2.7.2.686 [place] [id number] 2020-10-28 2020-10-28 Outpatient R RADIOLOGY [facility] [id number] Univers 00:00:00 00:00:00 ity of [facility] 2020-10-12 2020-10-12 Office [facility] 1.2.840.114 [id number] Univers 14:02:10 14:50:48 Visit Bryan Sera 350.1.13.10 i ty of [place] [phone] Vt dical [facility] 204 [facility] 2020-10-12 2020-10-12 Outpatient [facility] [id number] Univers 14:00:00 14:50:48 BRYAN ity [facility] 2020-10-12 2020-10-12 Outpatient R [facility] [id number] Univers 14:00:00 14:00:00 [facility] 2020-10-06 2020-10-06 Office Ivana [facility] 1.2.840.114 [id number] Univers 10:43:51 11:59:29 Visit Gina Perez 350.1.13.[address] [facility] [place] [phone] Vt dical [address] 2020-10-06 2020-10-06 [facility] 1.2.840.114 [id number] 10:43:51 11:59:29 Visit Gina Perez 350.1.13.10 [place] 4.2.7.2.686 Professio [phone] [address] 2020-10-06 2020-10-06 Outpatient [facility] [id number] Univers 10:30:00 10:30:00 GINA baugh o f [facility] 2020-10-06 2020-10-06 Orders Doctor GARCIA 1.2.840.114 [id number] Univers 00:00:00 00:00:00 Only Unassigned, [place] 350.1.13.10 ity of [place] [facility] 4.2.7.2.686 Juan J as [phone] [address] 2020-09-28 2020-09-28 Emergency [facility] 1.2.840.114 [id number] Univers 17:28:00 21:08:00 Elmerji Anuj Perez 350.1.13.10 ity of [place] 4.2.7.2.686 [facility] [phone] [facility] 084 Branch 2020-09-28 2020-09-28 Transition Latrice French 1.2.840.114 [id number] Univers 00:00:00 00:00:00 of Care Gilda Duque 350.1.13.10 it y of [place].2.[place] [phone] [facility] 403 Branch 2020-09-23 2020-09-26 [facility] Wayne Can [facility] 1.2.840.1 14 [id number] Univers 13:50:00 18:28:00 Encounter Ambika Fernandez 350.1.13.10 ity of [place] 4.2.7.2.686 [facility] [phone] [place] [address] [place] 2020-09-23 2020-09-26 Inpatient [address] [facility] [id number] Univers 13:50:00 18:28:00 AMBIKA baugh [facility] 2020-09-22 2020-09-22 [facility] [id number] Univers 09:45:00 09:45:00 GINA palacio [facility] 2020-09-10 2020-09-10 Outpatient [facility] [id number] Univers 16:15:00 16:15:00 BRYAN baugh [facility] 2020-09-09 2020-09-09 Transition Latrice Aleman 1.2.840.114 [id number] Univers 00:00:00 00:00:00 of Care Rico Duque 350.1.13.10 ity of [place] [phone] [address] 2020-09-08 2020-09-08 Outpatient R [facility] [id number] Univers 08:30:00 08:30:00 GINA palacio [facility] 2020-09-02 2020-09-07 Hospital Jose Guy [facility] 1.2.840.114 [id number] Univers 16:46:00 18:45:00 Encounter Alis Garcia [facility] 350. 1.13.10 ity of [place] Geoffrey German 4.2.7.2.686 [place] Kaylyn Calvin Mejia [phone] [address] ([facility]) 2020-08-26 2020-08-26 Office Tha Gunter [facility] 1.2.840.114 [id number] Univers 10:44:06 11:14:06 Visit [facility] 350.1.13.10 it y of [place].2.[place] Me[place] [phone] [address] Office Building 2020-08-26 2020-08-26 Outpatient THA POLK [facility] [id number] Univers 10:30:00 10:30:00 ity [facility] 2020-08-25 2020-08-25 Outpatient Tim HEATH [facility] [id number] Univers 10:00:00 10:00:00 GINA palacio [facility] 2020-08-24 2020-08-24 Outpatient Tim JAIME [facility] [id number] Univers 09:00:00 09:00:00 DEIDRE [facility] 2020-08-21 2020-08-21 Office [facility] 1.2.840.114 [id number] Univers 08:43:52 09:13:46 Visit Gina Perez 350.1.13.10 ity of [place] 4.2.7.2.686 [place] [phone] [place] [address] Branch Building 2020-08-21 2020-08-21 Outpatient Tim HEATH [facility] [id number] Univers 08:30:00 08:30:00 GINA palacio [facility] 2020-08-10 2020-08-14 Inpatient KACIE Montanez, ANNELCL INTE.02 [id number] [facility] 09:09:00 18:56:00 Johnie Lunsford [facility] 2020-08-11 2020-08-11 Outpatient R [facility] [id number] Univers 09:15:00 09:15:00 GINA palacio [facility] 2020-08-07 2020-08-07 Outpatient R [facility] [id number] Univers 10:00:00 10:00:00 GINA palacio [facility] 2020-07-27 2020-08-06 [facility] Jameson Mejia 1.2.840.1 14 [id number] Univers 12:13:00 17:15:00 Encounter Minnie Cardona 350.1.13.10 ity of [facility] 4.2.7.2.686 [place] Drew Noriega [phone] [facility] Johnie Skinner [address] [place] [address] 2020-07-27 2020-08-06 Inpatient JOHNIE SKINNER [facility] [id number] Univers 12:13:00 17:15:00 ity of [facility] 2020-07-24 2020-07-24 Outpatient [facility] [id number] Univers 13:00:00 13:00:00 GINA [facility] 2020-07-21 2020-07-21 Transition Latrice Aleman 1.2.840.114 [id number] Univers 00:00:00 00:00:00 of Care Rico Duque 350.1.13.10 ity of [place] 4.2.7.2.686 Noe beckett [phone] [address] 2020-07-10 2020-07-20 [facility] Janeth Leal 1.2.84 0.114 [id number] Univers 19:24:00 21:51:00 Encounter Oc Bryson 350.1.13.10 ity of Janeth Leal [facility] 4.2.7.2.686 [place] Minnie Cardona [phone] Medical Lisa Marroquin 0[address] 2020-07-17 2020-07-17 Outpatient R [facility] [id number] Univers 10:00:00 10:00:00 JOSE baugh [facility] 2020-07-10 2020-07-10 Outpatient R IVANA [facility] [id number] Univers 08:45:00 08:45:00 GINA workman f [facility] 2020-06-15 2020-06-15 Telephone [facility] 1.2.170.148 [id number] Univers 00:00:00 00:00:00 Jose Perez 350.1.13.10 i ty of [place] [phone] Vt dical nal [address] Building 2020-06-11 2020-06-11 Office [facility] 1.2.840.114 [id number] Univers 13:43:55 13:58:55 Visit Jose Eric 350.1.13.10 it y of [place].2.[place] - [phone] Med ical [facility] 188 [address] 2020-06-11 2020-06-11 Outpatient R JANKI [facility] [id number] Univers 13:30:00 13:30:00 JOSE baugh [facility] 2020-06-03 2020-06-03 Transition Latrice Aleman 1.2.840.114 [id number] Univers 00:00:00 00:00:00 of Care Rico Duque 350.1.13.10 ity of [place].2.[place] [phone] [facility] 403 [address] 2020-05-29 2020-06-02 [facility] Jameson Mejia [facility] 1.2.840.1 14 [id number] Univers 09:12:00 16:02:00 Encounter Liztet Gerardo 350.1.13.10 ity of [place] 4.2.7.2.686 [facility] [phone] [facility] 081 Branch 2020-05-29 2020-06-02 Inpatient X JAE [facility] [id number] Univers 09:12:00 16:02:00 MARTHA baugh [facility] 2020-05-29 2020-05-29 Outpatient R JANKI [facility] [id number] Univers 10:15:00 10:15:00 JOSE baugh [facility] 2020-04-23 2020-04-23 Office [facility] 1.2.840.114 [id number] Univers 13:48:18 14:03:18 Visit Jose [facility] 350.1.13.10 it y of [place] - [phone] [address] 2020-04-23 2020-04-23 Outpatient R [facility] [id number] Univers 13:30:00 13:30:00 JOSE baugh [facility] 2020-04-23 2020-04-23 Orders Doctor JOSE 1.2.840.114 [id number] Univers 00:00:00 00:00:00 Only Unassigned, [place] 350.1.13.10 ity of [place] [facility] 4.2.7.2.686 Juan J as [phone] [facility] 009 [place] 2020-04-09 2020-04-09 Office [facility] 1.2.840.114 [id number] Univers 13:58:45 14:13:45 Visit Jose [facility] 350.1.13.10 it y of [place] Cancer 4.2.7.2.686 [facility] - [phone] [address] 2020-04-09 2020-04-09 Outpatient R [facility] [id number] Univers 14:00:00 14:00:00 JOSE baugh [facility] 2020-03-27 2020-03-27 Transition Latrice Aleman 1.2.840.114 [id number] Univers 00:00:00 00:00:00 of Care Rico Duque 350.1.13.10 ity of [place] [phone] [facility] 403 [address] 2020-03-15 2020-03-26 Hospital Jameson Mejia 1.2.840.1 14 [id number] Univers 23:48:00 18:02:00 Encounter Kandis Hough 350.1.13.10 ity of Janki [facility] 4.2.7.2.68 6 [place] [phone] [facility] 098 Branch 2020-03-18 2020-03-18 Anesthesia Caio Najera Nancy 1. 2.840.114 [id number] Univers 13:52:00 16:42:00 Stephanie Franks 350.1.13.10 ity of [facility] 4.2.7.2.686 [place] [phone] [facility] 103 Branch 2020-02-06 2020-02-06 Transition Claudette Alemantanya 1.2.840.114 [id number] Univers 00:00:00 00:00:00 of Care Rico Zelayay 350.1.13.10 ity of [place] [phone] [facility] 403 [address] 2020-02-03 2020-02-05 Hospital Óscar Hermosillo [facility] 1.2.8 40.114 [id number] Univers 16:55:00 20:40:00 Encounter Martha Rowe 350.1.13.10 ity of [place] 4.2.7.2.[place] [phone] [facility] 081 Branch 2020-01-17 2020-01-17 Outpatient R [facility] [id number] Univers 13:30:00 13:30:00 SENDIL ity of [facility] 2019-12-02 2019-12-02 Outpatient R [facility] [id number] Univers 15:00:00 15:00:00 ity of [facility] 2019-11-16 2019-11-21 [facility] Dhirajfrances [place] [facility] 1.2.840 .114 [id number] Univers 16:35:23 14:12:00 Encounter Heather Hermosillo 350.1.13.1 0 ity of [place] 4.[place].2.[place] [id number] [place] [address]381 Branch 2019-09-17 2019-09-18 [facility] 1.2.156.990 [id number] Univers 20:30:04 00:41:00 Valery Perez 350.1.13.10 ity of [place].2.[place] [phone] [facility] 084 [place] 2019-09-17 2019-09-18 Emergency X ALFIE [facility] ERT [id number] Univers 20:30:04 00:41:00 WAKILI ity [facility] 2019-09-05 2019-09-05 Outpatient [facility] [id number] Univers 14:00:00 14:00:00 SENDIL ity [facility] 2019-09-05 2019-09-05 Telemedici [facility] 1.2.840.114 [id number] Univers 08:17:17 08:47:17 ne Visit Sendil Hannah Perez 350.1.13.10 ity of [place] [phone] Vt dicma nal [address] [place] [address] 2019-09-05 2019-09-05 Telephone [facility] 1.2.185.917 [id number] Univers 00:00:00 00:00:00 Sendil Hannah Perez 350.1.13.10 ity of [place] [phone] Vt dical nal 9 [facility] 2019-09-03 2019-09-03 Outpatient R [facility] [id number] Univers 10:30:00 10:30:00 SENDIL ity [facility] 2019-08-20 2019-08-20 Telephone [facility] 1.2.360.773 [id number] Univers 00:00:00 00:00:00 Nika SHAW 350.1.13.10 ity of [place].2.[place] [facility] [phone] Vt dical 390 [place] 2019-08-19 2019-08-19 Refill Nancy Lee 1.2.840.114 [id number] Univers 00:00:00 00:00:00 Lola Figueroa 350.1.13.10 it y of Hospital 4.2.7.2.686 [place] [phone] [facility] 090 [place] 2019-08-16 2019-08-16 Refill Nancy Lee 1.2.840.114 [id number] Univers 00:00:00 00:00:00 Lola Carolina 350.1.13.10 it y of Hospital 4.2.7.2.686 [place] as [phone] [facility] 090 Branch 2019-08-15 2019-08-15 Emergency [facility] 1.2.840.114 [id number] Univers 11:58:21 15:28:00 Demarcus Perez 350.1.13.10 i ty of [place] 4[place]2.[place] [phone] [facility] 084 Branch 2019-08-15 2019-08-15 Emergency [facility] ERT [id number] Univers 11:58:21 15:28:00 DEMARCUS ity [facility] 2019-08-15 2019-08-15 Case JOSE Castillo 1.2.840.114 [id number] Univers 00:00:00 00:00:00 Management Ninfa FIGUEROA 350.1.13.10 ity [facility] 4.2.7.2.686 [place] as [phone] [facility] 008 Branch 2019-08-15 2019-08-15 Telephone Anna [facility] 1.2.474.622 [id number] Univers 00:00:00 00:00:00 Ninfa Perez 350.1.13.10 ity of [place]2.7.2.[address] [facility] [phone] [facility] 059 [facility] 2019-08-12 2019-08-12 Transition Latrice Ramirez 1.2.840.114 [id number] Univers 00:00:00 00:00:00 of Care Joan Duque 350.1.13.10 ity of [place]2.[place] [id number] [facility] 403 [address] 2019-08-06 2019-08-09 Emergency Wayne Can [facility] 1.2.840. 114 [id number] Univers 14:06:47 15:19:00 Lizett Gerardo 350.1.13.10 ity of [place] 4.[place].2.[place] [phone] [facility] 081 Branch 2019-08-06 2019-08-09 Outpatient X HUMAIRA [facility] [id number] Univers 14:06:47 15:19:00 LIZETT ity of [facility] 2019-08-06 2019-08-06 Outpatient R TRAVIS, [facility] [id number] Univers 13:30:00 13:30:00 RICHMOND ity o f [facility] 2019-08-06 2019-08-06 Outpatient R TRAVIS, [facility] [id number] Univers 11:00:00 11:00:00 RICHMOND singhy o f [facility] 2019-08-06 2019-08-06 Outpatient R TRAVIS, [facility] [id number] Univers 11:00:00 11:00:00 [facility] amauri o f [facility] 2019-08-06 2019-08-06 Orders Doctor JOSE 1.2.840.114 [id number] Univers 00:00:00 00:00:00 Only Unassigned, [place] 350.1.13.10 ity of [place] [facility] 4.2.7.2.686 [place] J as [phone] [facility] 009 Branch 2019-07-19 2019-07-19 Transition Latrice French 1.2.840.114 [id number] Univers 00:00:00 00:00:00 of Care Gilda Duque 350.1.13.10 it y of [place] [id number] [facility] 403 [address] 2019-07-17 2019-07-18 Emergency Antonetteodalysarnie Danakelli S Nancy 1.2.840 .114 [id number] Univers 21:36:10 21:05:00 Abu-Josy Tareq [place] 350.1.13.1 0 ity of Hospital 4.2.7.2.686 [place] [id number] [facility] 090 Branch 2019-07-17 2019-07-18 Outpatient X ABU-JOSY, TAREQ [facility] [id number] Univers 21:36:10 21:05:00 ABU-JOSY, TAREQ ity of [facility] 2019-07-03 2019-07-03 Transition Latrice French 1.2.840.114 [id number] Univers 00:00:00 00:00:00 of Care Gilda Duque 350.1.13.10 it y [place] [phone] [address] 2019-07-01 2019-07-01 Transition Latrice French 1.2.840.114 [id number] Univers 00:00:00 00:00:00 of Care Gilda Duque 350.1.13.10 it y of [place] [id number] [facility] 403 [place] 2019-06-27 2019-06-27 Transition Latrice French 1.2.840.114 [id number] Univers 00:00:00 00:00:00 of Care Gilda Duque 350.1.13.10 it y of [place] [id number] [facility] 403 [place] 2019-06-24 2019-06-26 [facility] [id number] Univers 14:51:01 18:37:00 MICHAEL ity of [facility] 2019-06-24 2019-06-26 Hospital Janeth Leal 1.2.84 0.114 [id number] Univers 14:51:01 18:37:00 Encounter Michael Shirley 350.1.1 3.10 ity of [facility] 4.2.7.2.686 [place] [phone] [facility] 090 Branch 2019-02-06 2019-02-06 Telephone JOSE Bhatt 1.2.840.114 [id number] Univers 00:00:00 00:00:00 Cortney FIGUEROA 350.1.13.10 i ty of [facility] 4.2.7.2.686 [place] as [id number] [facility] 008 Branch 2019-02-05 2019-02-05 Emergency [facility] 1.2.741.100 [id number] Univers 17:30:29 21:52:00 Jyoti Perez 350.1.13.10 i ty of [place] 4[place].2.[place] [id number] [place] 249[address] Branch 2019-01-30 2019-01-30 Transition EmyLatrice martínez 1.2.840.114 [id number] Univers 00:00:00 00:00:00 of Care Rhonda Duque 350.1.13.10 it y of [place] [phone] [facility] 403 [address] 2019-01-24 2019-01-29 [facility] Wayne Can 1.2.840.1 14 [id number] Univers 16:01:37 14:55:00 Encounter Dennis Finley 350.1.13.10 ity [facility] 4.2.7.2.686 [place] [phone] [place] 249389 Branch 2019-01-22 2019-01-22 Transition Latrice Quevedo 1.2.840.114 [id number] Univers 00:00:00 00:00:00 of Care Rhonda Duque 350.1.13.10 it y of [place].2.[place] [phone] [facility] 403 [address] 2019-01-16 2019-01-19 [facility] Carlos Allen 1.2.840.11 [id number] Univers 23:52:03 14:36:00 Encounter Martha Rowe 350.1.13.10 ity of [place], Dennis ramsayal 4.2.7.2.686 [place] [id number] [place] [address] Branch 2017-10-23 2017-10-27 Discharged 1 [facility] [id number] 17:29:00 16:54:00 Inpatient ALEXIS 90 Luke s [facility] 2017-04-03 2017-04-04 [facility] [id number] 23:17:00 03:53:00 Emergency LAIRD 56 Luke s Room [facility] 2017-03-05 2017-03-09 Discharged ER [facility] [id number] 06:54:00 10:58:00 Inpatient NICHELLE 44 Luke s (obs) Patient [facility] 2017-01-04 2017-01-05 Discharged [facility] [id number] 10:33:00 18:56:00 Inpatient 61 Favio s (obs) [facility] Orders Doctor JOSE 1.2.840.114 [id number] Univers 00:00:00 00:00:00 Only Unassigned, [place] 350.1.13.10 ity of [place] [facility] 4.2.7.2.686 [place] J as [phone] Medi uriel 009 Branch Results Test Description Test Time Test Comments Results Result Comments Source Transthoracic echo (TTE) 2022-02-10 17:43:07 Test Item Value Reference Range Interpretation Comme nts Height (test code = 1122371965) in Weight (test code = 6351802223) lbs Systolic BP (test code = 5094577991) mmHg Diastolic BP (test code = 7754343438) mmHg Heart Rate (test code = 5628586418) bpm BSA (test code = 8108317159) 1.86 m2 Ao root diam (test code = 7465991588) 3.10 cm Aortic root (test code = 2659754787) 3.1 cm Ao root annulus (test code = 3.1 cm 1835409455) LVOT diameter (test code = 1.83 cm 6127643965) LVOT area (test code = 2086648180) 2.60 cm2 LVIDD (test code = 7917840906) 4.80 cm Left Ventricular End Diastolic Volume 107.5 mL by Teichholz Method (test code = 9630663) IVS (test code = 3263905295) 1.35 cm Interventricular Septum Diastolic 1.35 cm Thickness by 2D (test code = 5871674) LVPWD (test code = 6459622510) 1.35 cm PW (test code = 1228427065) 1.35 cm 0.6-1.1 EF(Teich) (test code = 9571838480) 30.10 % LVIDS (test code = 7686177458) 4.10 cm Left Ventricular End Systolic Volume 75.1 mL by Teichholz Method (test code = 4058323) FS (test code = 7623274754) 14 % EF - 2D (test code = 06390636) 30.10 % LA size (test code = 4164272949) 4.1 cm TR Peak Haile (test code = 2876621853) 232.4 cm/s Triscuspid Valve Regurgitation Peak mmHg Gradient (test code = 3130717972) LAV(MOD-sp4) (test code = 4768409604) 103.10 mL E wave decelartion time (test code = 0.15 s 7630155727) MV stenosis pressure 1/2 time (test 44.6 ms code = 9324449361) MV Peak E Haile (test code = 110.2 cm/s 6003356307) MV Peak A Haile (test code = 28.7 cm/s 4778915055) E/A ratio (test code = 0699243330) ratio MR max PG (test code = 7810790418) 78.70 mm[Hg] MR max haile (test code = 9465855399) 443.40 cm/s Mr max haile (test code = 1299071525) 443.4 m/s MV Prop V (test code = 6012650682) 45.00 cm/s MV E/e' septal (test code = 9.2 cm/s 2690688787) Tapse (test code = 9775542833) 1.53 cm LVOT stroke volume (test code = 41.70 cm3 5513886383) LVOT peak haile (test code = 87.2 cm/s 5173392575) LVOT mn grad (test code = 2744601020) mmHg AV LVOT peak gradient (test code = mmHg 3492668598) LVOT peak VTI (test code = 15.8 cm 3915605264) LV V1 mean (test code = 4555010758) 51.30 cm/s Aortic valve mean velocity (test code 78.3 cm/s = 7138062048) Ao peak haile (test code = 4739569535) 111.8 cm/s Ao VTI (test code = 6697921708) 21.5 cm AV area by cont VTI (test code = 1.9 cm2 9736420077) AV area peak haile (test code = 2.1 cm2 2571938265) Ao max PG (test code = 5739258624) 5.00 mm[Hg] AV peak gradient (test code = mmHg 3903138397) AV valve area (test code = 1.94 cm2 0142125324) AV mean gradient (test code = mmHg 6170287335) Radiology Study observation (narrative) (test code = 08431-6) DIANE (test code = DIANE) Table formatting [...] lateral and apex.All other segments are normal. [id number] 12:01:08 Test Item Value Reference Interpretation Comments Range TROPONIN I (test 0.021 ng/mL See_Comment [Automated code = 9874490066) message] The system which generated this result [...] biotin. Lab Interpretation Normal (test code = 94255-8) [facility]22-[facility]-22 11:50:23 Test Item Value Reference Range Interpretation Comments MAGNESIUM (test code = 8391061750) 1.7 mg/dL 1.7-2.4 Lab Interpretation (test code = Normal 96656-7) [facility] PAN[facility] (93096)2022-02-10 11:50:22 Test Item Value Reference Range Interpretation Comments NA (test code = 138 mmol/L 135-145 0478220160) K (test code = 3.9 mmol/L 3.5-5 3251058811) CL (test code = 108 mmol/L 98-108 2447591897) CO2 TOTAL (test code = 24 mmol/L 23-31 1675880730) AGAP (test code = 2-16 3974882925) BUN (test code = 19 mg/dL 7-23 9928832259) GLUCOSE (test code = 117 mg/dL 70-110 H 5789505180) CREATININE (test code = 0.91 mg/dL 0.6-1.25 5569664534) TOTAL BILI (test code = 1.0 mg/dL 0.1-1.7 5391348872) CALCIUM (test code = 8.5 mg/dL 8.6-10.6 L 9296690660) T PROTEIN (test code = 6.4 g/dL 6.3-8.2 3424151486) ALBUMIN (test code = 3.4 g/dL 3.5-5 L 8143618242) ALK PHOS (test code = 177 U/L 34-122 H 6846664320) ALTv (test code = 24 U/L 5-50 1742-6) AST(SGOT) (test code = 38 U/L 13-40 0409510223) eGFR (test code = mL/min/1.73m2 8299452937) DIANE (test code = DIANE) Association of [...] tests). Lab Interpretation Abnormal (test code = 72148-4) [facility] 11:50:22 Test Item Value Reference Range Interpretation Comments PHOSPHORUS (test code = 6813045945) 5.1 mg/dL 2.5-5 H Lab Interpretation (test code = Abnormal 35539-2) [facility] WITH [id number] 11:19:02 Test Item Value Reference Range Interpretation [...] RDW-SD (test code = 48.0 fL 38.5-51.6 07807-8) RDW-CV (test code = 14.2 % 12.1-15.4 788-0) PLT (test code = See_Comment [Automated 777-3) message] The sy stem which generated this result transmitted reference range : 150 - 328 10*3/ ?L. The reference r batsheva was not used to interpret this result as normal/abnormal . MPV (test code = 10.2 fL 9.8-13 02340-1) NRBC/100 WBC (test See_Comment [Automat ed code = 1346025238) message] The system which generated this result transmitted reference range : 0.0 - 10.0 /100 WBCs. The refer ence range was not u sed to interpret th is result as normal/abnormal . NRBC x10^3 (test code See_Comment [Auto mated = 7559502143) message] The s ystem which generated this result transmitted reference range : 10*3/?L. The reference range was not used to interpret this result as normal/abnormal . GRAN MAT (NEUT) % 68.5 % (test code = 770-8) IMM GRAN % (test code 0.40 % = 4752378465) LYMPH % (test code = 19.0 % 736-9) MONO % (test code = 8.3 % 5905-5) EOS % (test code = 3.4 % 713-8) BASO % (test code = 0.4 % 706-2) GRAN MAT x10^3(ANC) 3.65 10*3/uL 1.99-6.95 (test code = 7647846537) IMM GRAN x10^3 (test 0-0.06 code = 0012950515) LYMPH x10^3 (test code 1.01 10*3/uL 1.09-3.23 L = 731-0) MONO x10^3 (test code 0.44 10*3/uL 0.36-1.02 = 742-7) EOS x10^3 (test code = 0.18 10*3/uL 0.06-0.53 711-2) BASO x10^3 (test code 0.01-0.09 = 704-7) Lab Interpretation Abnormal (test code = 57132-6) [facility]2022-01-30 23:33:12 Test Item Value Reference Range Interpretation Comments BNP (test code = 07041-5) 443 pg/mL 0-100 H DIANE (test code = DIANE) Instrument Technician ID - ADRY Lab Interpretation (test Abnormal code = 20318-6) [facility] 23:33:12 Test Item Value Reference Range Interpretation Comments BNP (test code = 07118-5) 443 pg/mL 0-100 H DIANE (test code = DIANE) Instrument Technician ID - ADRY Lab Interpretation (test Abnormal code = 04938-8) [facility]2022-01-30 23:33:12 Test Item Value Reference Range Interpretation Comments BNP (test code = 83946-1) 443 pg/mL 0-100 H DIANE (test code = DIANE) Instrument Technician ID - ADRY Lab Interpretation (test Abnormal code = 38192-3) [facility]2022-01-30 23:33:12 Test Item Value Reference Range Interpretation Comments BNP (test code = 48173-8) 443 pg/mL 0-100 H DIANE (test code = DIANE) Instrument Technician ID - ADRY Lab Interpretation (test Abnormal code = 80612-8) [facility]2022-01-30 23:33:12 Test Item Value Reference Range Interpretation Comments BNP (test code = 22546-7) 443 pg/mL 0-100 H DIANE (test code = DIANE) Instrument Technician ID - ADRY Lab Interpretation (test Abnormal code = 34909-6) [facility]2022-01-30 23:33:12 Test Item Value Reference Range Interpretation Comments BNP (test code = 01510-1) 443 pg/mL 0-100 H DIANE (test code = DIANE) Instrument Technician ID - ADRY Lab Interpretation (test Abnormal code = 06135-8) [facility]2022-01-30 23:33:12 Test Item Value Reference Range Interpretation Comments BNP (test code = 41289-2) 443 pg/mL 0-100 H DIANE (test code = DIANE) Instrument Technician ID - ADRY Lab Interpretation (test Abnormal code = 62986-3) [facility]2022-01-30 23:33:12 Test Item Value Reference Range Interpretation Comments BNP (test code = 42785-2) 443 pg/mL 0-100 H DIANE (test code = DIANE) Instrument Technician ID - ADRY Lab Interpretation (test Abnormal code = 14224-4) [facility]2022-01-30 23:33:12 Test Item Value Reference Range Interpretation Comments BNP (test code = 61272-4) 443 pg/mL 0-100 H DIANE (test code = DIANE) Instrument Technician ID - ADRY Lab Interpretation (test Abnormal code = 35076-1) [facility]2022-01-30 23:33:12 Test Item Value Reference Range Interpretation Comments BNP (test code = 15278-2) 443 pg/mL 0-100 H DIANE (test code = DIANE) Instrument Technician ID - ADRY Lab Interpretation (test Abnormal code = 62185-2) [facility]2022-01-30 23:33:12 Test Item Value Reference Range Interpretation Comments BNP (test code = 70077-2) 443 pg/mL 0-100 H DIANE (test code = DIANE) Instrument Technician ID - ADRY Lab Interpretation (test Abnormal code = 36805-1) [facility]2022-01-30 23:33:12 Test Item Value Reference Range Interpretation Comments BNP (test code = 20629-7) 443 pg/mL 0-100 H DIANE (test code = DIANE) Instrument Technician ID - ADRY Lab Interpretation (test Abnormal code = 47697-4) [facility]2022-01-30 23:33:12 Test Item Value Reference Range Interpretation Comments BNP (test code = 45492-8) 443 pg/mL 0-100 H DIANE (test code = DIANE) Instrument Technician ID - ADRY Lab Interpretation (test Abnormal code = 43301-3) [facility]2022-01-30 23:33:12 Test Item Value Reference Range Interpretation Comments BNP (test code = 14830-7) 443 pg/mL 0-100 H DIANE (test code = DIANE) Instrument Technician ID - ADRY Lab Interpretation (test Abnormal code = 74782-9) [facility]2022-01-30 23:33:12 Test Item Value Reference Range Interpretation Comments BNP (test code = 42474-8) 443 pg/mL 0-100 H DIANE (test code = DIANE) Instrument Technician ID - ADRY Lab Interpretation (test Abnormal code = 19918-8) [facility]2022-01-30 23:33:12 Test Item Value Reference Range Interpretation Comments BNP (test code = 72131-3) 443 pg/mL 0-100 H DIANE (test code = DIANE) Instrument Technician ID - ADRY Lab Interpretation (test Abnormal code = 40970-9) [facility]2022-01-30 23:33:12 Test Item Value Reference Range Interpretation Comments BNP (test code = 35584-4) 443 pg/mL 0-100 H DIANE (test code = DIANE) Instrument Technician ID - ADRY Lab Interpretation (test Abnormal code = 77471-0) [facility]2022-01-30 23:33:12 Test Item Value Reference Range Interpretation Comments BNP (test code = 77886-7) 443 pg/mL 0-100 H DIANE (test code = DIANE) Instrument Technician ID - ADRY Lab Interpretation (test Abnormal code = 15045-2) [facility] (BNP)2022-01-30 23:33:12 Test Item Value Reference Range Interpretation Comments B-TYPE NATRIURETIC PEPTIDE (BEAKER) 443 pg/mL 0-100 H (test code = 700) Instrument Technician ID - ADRYTROPONIN [id number] 20:57:59 Test Item Value Reference Interpretation Comments Range TROPONIN I (test 0.017 ng/mL See_Comment [Automated code = 4468320299) message] The system which generated this result [...] biotin. Lab Interpretation Normal (test code = 18460-5) [facility] [id number] 20:54:59 Test Item Value Reference Range Interpretation Comments NT-proBNP (test code 6490 pg/mL See_Comment H [Autom ated = 9855540706) message] The system which generated this result transmitted reference range : <=125. The reference range was not used to interpret this result as normal/abnormal . DIANE (test code = DIANE) Biotin has been reported to cause a negative bias, interpret results relative to patient's use of biotin. Lab Interpretation Abnormal (test code = 68233-5) [facility]2022-[facility]-21 20:46:35 Test Item Value Reference Range Interpretation Comments MAGNESIUM (test code = 6959968349) 1.5 mg/dL 1.7-2.4 L Lab Interpretation (test code = Abnormal 19296-1) [facility]COMP. METABOLIC PANEL (59351)2021-11-09 20:46:34 Test Item Value Reference Range Interpretation Comments NA (test code = 140 mmol/L 135-145 7317465652) K (test code = 3.9 mmol/L 3.5-5.0 3322456324) CL (test code = 111 mmol/L 98-108 H 2054940496) CO2 TOTAL (test code = 16 mmol/L 23-31 L 3250463933) AGAP (test code = 2-16 7057611926) BUN (test code = 14 mg/dL 7-23 1579175080) GLUCOSE (test code = 189 mg/dL 70-110 H 6923621150) CREATININE (test code = 0.66 mg/dL 0.60-1.25 8092063355) TOTAL BILI (test code = 0.8 mg/dL 0.1-1.7 7287820113) CALCIUM (test code = 8.3 mg/dL 8.6-10.6 L 1428270813) T PROTEIN (test code = 6.5 g/dL 6.3-8.2 3958455401) ALBUMIN (test code = 3.3 g/dL 3.5-5.0 L 6804894223) ALK PHOS (test code = 136 U/L 34-122 H 0144251692) ALTv (test code = 18 U/L 5-50 1742-6) AST(SGOT) (test code = 26 U/L 13-40 9566277805) eGFR (test code = mL/min/1.73m2 5495920060) DIANE (test code = DIANE) Association of [...] tests). Lab Interpretation Abnormal (test code = 01854-5) [facility] WITH [id number] 20:33:30 Test Item Value Reference Range Interpretation Comments WBC (test code = See_Comment [Automated 5487-2) message] The sy stem which generated this result transmitted reference range : 4.20 - 10.70 10*3/?L. The reference range was not used to interpret this result as normal/abnormal . RBC (test code = See_Comment [Automated 493-8) message] The sy stem which generated this [...] RDW-SD (test code = 45.4 fL 38.5-51.6 82286-3) RDW-CV (test code = 14.2 % 12.1-15.4 788-0) PLT (test code = See_Comment [Automated 777-3) message] The sy stem which generated this result transmitted reference range : 150 - 328 10*3/ ?L. The reference r batsheva was not used to interpret this result as normal/abnormal . MPV (test code = 9.8 fL 9.8-13.0 14534-6) NRBC/100 WBC (test See_Comment [Automat ed code = 6849402819) message] The system which generated this result transmitted reference range : 0.0 - 10.0 /100 WBCs. The refer ence range was not u sed to interpret th is result as normal/abnormal . NRBC x10^3 (test code <0.01 See_Comment [Auto mated = 9195133349) message] The s ystem which generated this result transmitted reference range : 10*3/?L. The reference range was not used to interpret this result as normal/abnormal . GRAN MAT (NEUT) % 62.3 % (test code = 770-8) IMM GRAN % (test code 0.80 % = 0832305692) LYMPH % (test code = 25.1 % 736-9) MONO % (test code = 6.7 % 5905-5) EOS % (test code = 4.7 % 713-8) BASO % (test code = 0.4 % 706-2) GRAN MAT x10^3(ANC) 4.76 10*3/uL 1.99-6.95 (test code = 9024187458) IMM GRAN x10^3 (test 0.06 10*3/uL 0.00-0.06 code = 6257615511) LYMPH x10^3 (test code 1.92 10*3/uL 1.09-3.23 = 731-0) MONO x10^3 (test code 0.51 10*3/uL 0.36-1.02 = 742-7) EOS x10^3 (test code = 0.36 10*3/uL 0.06-0.53 711-2) BASO x10^3 (test code 0.03 10*3/uL 0.01-0.09 = 704-7) Lab Interpretation Abnormal (test code = 68157-1) [facility] (AUTOMATED)2021-11-09 20:27:39 Test Item Value Reference Range Interpretation Comments POCT GLU (test code = 8273911723) 190 mg/dL 70-110 H Lab Interpretation (test code = Abnormal 85064-3) [facility] [id number] 11:52:00 Test Item Value Reference Range Interpretation Comments GLUCOSE BEDSIDE TESTING (test code = 92 mg/dL 70-110 N GLUBED) GLUCOSE BEDSIDE [id number] 08:05:00 Test Item Value Reference Range Interpretation Comments GLUCOSE BEDSIDE TESTING (test code = 62 mg/dL 70-110 L GLUBED) GLUCOSE BEDSIDE [id number] 20:40:00 Test Item Value Reference Range Interpretation Comments GLUCOSE BEDSIDE TESTING (test code 105 mg/dL 70-110 N = GLUBED) GLUCOSE BEDSIDE [id number] 17:02:00 Test Item Value Reference Range Interpretation Comments GLUCOSE BEDSIDE TESTING (test code 128 mg/dL 70-110 H = GLUBED) GLUCOSE BEDSIDE [id number] 16:37:00 Test Item Value Reference Range Interpretation Comments GLUCOSE BEDSIDE TESTING (test code 105 mg/dL 70-110 N = GLUBED) GLUCOSE BEDSIDE [id number] 08:17:00 Test Item Value Reference Range Interpretation Comments GLUCOSE BEDSIDE TESTING (test code = 88 mg/dL 70-110 N GLUBED) GLUCOSE BEDSIDE [id number] 19:45:00 Test Item Value Reference Range Interpretation Comments GLUCOSE BEDSIDE TESTING (test code 115 mg/dL 70-110 H = GLUBED) GLUCOSE BEDSIDE [id number] 18:13:00 Test Item Value Reference Range Interpretation Comments GLUCOSE BEDSIDE TESTING (test code = 74 mg/dL 70-110 N GLUBED) GLUCOSE BEDSIDE [id number] 17:29:00 Test Item Value Reference Range Interpretation Comments GLUCOSE BEDSIDE TESTING (test code = 44 mg/dL 70-110 LL GLUBED) GLUCOSE BEDSIDE [id number] 12:26:00 Test Item Value Reference Range Interpretation Comments GLUCOSE BEDSIDE TESTING (test code = 96 mg/dL 70-110 N GLUBED) GLUCOSE BEDSIDE [id number] 08:21:00 Test Item Value Reference Range Interpretation Comments GLUCOSE BEDSIDE TESTING (test code = 77 mg/dL 70-110 N GLUBED) GLUCOSE BEDSIDE [id number] 20:12:00 Test Item Value Reference Range Interpretation Comments GLUCOSE BEDSIDE TESTING (test code = 91 mg/dL 70-110 N GLUBED) GLUCOSE BEDSIDE [id number] 16:42:00 Test Item Value Reference Range Interpretation Comments GLUCOSE BEDSIDE TESTING (test code 106 mg/dL 70-110 N = GLUBED) GLUCOSE BEDSIDE [id number] 11:49:00 Test Item Value Reference Range Interpretation Comments GLUCOSE BEDSIDE TESTING (test code = 89 mg/dL 70-110 N GLUBED) GLUCOSE BEDSIDE [id number] 08:22:00 Test Item Value Reference Range Interpretation Comments GLUCOSE BEDSIDE TESTING (test code = 68 mg/dL 70-110 L GLUBED) GLUCOSE BEDSIDE [id number] 20:05:00 Test Item Value Reference Range Interpretation Comments GLUCOSE BEDSIDE TESTING (test code 137 mg/dL 70-110 H = GLUBED) GLUCOSE BEDSIDE [id number] 16:42:00 Test Item Value Reference Range Interpretation Comments GLUCOSE BEDSIDE TESTING (test code = 98 mg/dL 70-110 N GLUBED) GLUCOSE BEDSIDE [id number] 11:13:00 Test Item Value Reference Range Interpretation Comments GLUCOSE BEDSIDE TESTING (test code 118 mg/dL 70-110 H = GLUBED) GLUCOSE BEDSIDE [id number] 07:37:00 Test Item Value Reference Range Interpretation Comments GLUCOSE BEDSIDE TESTING (test code 140 mg/dL 70-110 H = GLUBED) COMPREHENSIVE METABOLIC [id number] 06:34:00 Test Item Value Reference Range Interpretation [...] TOTAL (test code = ALKP) CBC W/AUTO [id number] 06:25:00 Test Item Value Reference Range Interpretation [...] DIFF/SCN CRITERIA = MDIFF) - CT ABDOMEN W/[id number] 03:09:00 [facility] 1960 Sex: M Name: FAITH VANCE [facility] : 1960 Age/S: 60 / M [address] Unit #: [id number] Loc: [place] [address] Phys: Fede Carrera DO Acct: [id number] Dis Date: Status: ADM IN PHONE #: [phone] Exam Date: 10/31/2020 192 FAX #: Reason: NAUSEA, VOMITING, DIARRHEA EXAMS: CPT: [id number] CT ABDOMEN W/CONTRAST 07085 EXAM: - CT ABDOMEN W/CONTRAST LOCATION: H61 [...] 1 Signed Report (CONTINUED) Name: FAITH VANCE [facility] [place] : 1960 Age/S: 60 [facility] [address] [facility]: [id number] Loc: [place] [address] Phys: Fede Romero DO Acct: [id number] Dis Date: Status: ADM IN PHONE #: [phone] Exam Date: 10/31/20201919 FAX #: Reason: NAUSEA, VOMITING, DIARRHEA EXAMS: CPT: [id number] CT ABDOMEN W/CONTRAST 31273<Continued> small bowel wall thickening. The appendix is [...] Moderate bilateral pleuraleffusions. at 0309 Reported and signed by: Carmen Encarnacion M.D. CC: Nika Martin MD; Fede Carrera DO Technologist:RT Rohan(R) CTDI: DLP: Trnscb Date/Time: 11/01/2020 (308) t.SDR.TH15 Orig Print D/T: S: 11/01/2020 (311) PAGE 2Signed ReportGLUCOSE BEDSIDE [id number] 21:34:00 Test Item Value Reference Range Interpretation Comments GLUCOSE BEDSIDE TESTING (test code 161 mg/dL 70-110 H = GLUBED) GLUCOSE BEDSIDE [id number] 17:32:00 Test Item Value Reference Range Interpretation Comments GLUCOSE BEDSIDE TESTING (test code 136 mg/dL 70-110 H = GLUBED) - XR ABDOMEN 1 [id number] 12:44:00 [facility] 1960 Sex: M Name: FAITH VANCE : 1960 Age/S: 60 / M [address] [facility] Unit #: [id number] Loc: [place] [address] Phys: Fede Carrera DO Acct: [id number] Dis Date: Status: ADM IN PHONE #: [phone] Exam Date: 10/31/20201226 FAX #: Reason: Abdominal pain in the lower qudarants EXAMS: CPT: [id number] XR ABDOMEN 1 V 40449 Fluoro Time: DAP (Gy m2): Air Kerma [...] VANCE : 1960 Age/S: 60 / M [address] [facility] Unit #: [id number] Loc: [place] [address] Phys: Fede Carrera DO Acct: [id number] Dis Date: Status: ADM IN PHONE #: [phone] Exam Date: 10/31/20201226 FAX #: Reason: Abdominal pain in the lower qudarants EXAMS: CPT: [id number] XR ABDOMEN 1 V 66935 Fluoro Time: DAP (Gy m2): Air Kerma (mGy): &l t;Continued> Technologist: RT Rohan(R) Trnscb Date/Time: 10/31/2020 (8897) JhonAGClaudia OrigPrint D/T: S: 10/31/2020 (7350) PAGE 2 Signed ReportGLUCOSE BEDSIDE [id number] 11:58:00 Test Item Value Reference Range Interpretation Comments GLUCOSE BEDSIDE TESTING (test code 105 mg/dL 70-110 N = GLUBED) GLUCOSE BEDSIDE [id number] 08:01:00 Test Item Value Reference Range Interpretation Comments GLUCOSE BEDSIDE TESTING (test code 106 mg/dL 70-110 N = GLUBED) [id number] 22:46:00 Test Item Value Reference Range Interpretation [...] yby method. Completed by Nursing: NOGLUCOSE BEDSIDE [id number] 21:55:00 Test Item Value Reference Range Interpretation Comments GLUCOSE BEDSIDE TESTING (test code 119 mg/dL 70-110 H = GLUBED) [id number] 19:33:00 Test Item Value Reference Range Interpretation [...] method. Completed by Nursing: NOCoronavirus 2018 nCoV [id number] 18:46:00 Test Item Value Reference Range Interpretation Comments Coronavirus 2019 nCoV Negative Negative Per ma nufacturer, Bedside (test code = negativ e results should ALCSX17ZVUIC) be treated aspresumptive a nd, if inconsistent [...] with COVID-19. Spec Comments: NNT PRO-BRAIN NATRIURETIC [id number] 15:51:00 Test Item Value Reference Range Interpretation Comments NT PRO-BRAIN NATRIURETIC PEPTI 6079 PG/ML 0-100 H (test code = PROBNP) Completed by Nursing: [id number] 15:51:00 Test Item Value Reference Range Interpretation [...] yby method. Completed by Nursing: NOBASIC METABOLIC [id number] 15:51:00 Test Item Value Reference Range Interpretation [...] Completed by Nursing: NO- XR CHEST 1 [id number] 15:42:00 [facility] 1960 Sex: M Name: FAITH VANCE [facility] : 1960 Age/S: 60 / M [address] Unit #: [id number] Loc: [place] [address] Phys: Todd Jacobo MD Acct: [id number] Dis Date: Status: PRE ER PHONE #:[phone] Exam Date: 10/30/2020 1524 FAX #: Reason: chest pain EXAMS: CPT: [id number] XR CHEST 1 M74911 Fluoro Time: DAP (Gy m2): Air Kerma (mGy): Single View Chest. Location: 7 Clinical Indication: 60-year-old with chest pain Comparison: [...] MD PAGE 1 Signed Report Name: FAITH [place]ANCEland : 1960 Age/S: 60 / [facility] [address] Unit #: [id number] Loc: [place] [address] Phys: Todd Jacobo MD Acct: [id number] Date: Status: PRE ER PHONE #: [phone] Exam Date: 10/30/2020 1524 FAX #: Reason: chest painEXAMS: CPT: [id number] XR CHEST 1 V 60617 Fluoro Time: DAP (Gy m2): Air Kerma (mGy): <Continued> Technologist: Kim Andrews RT(R)(CT) Trnscb Date/Time: 10/30/2020 (4942) t.KATHRYNR.RB24 Orig PrintD/T: S: 10/30/2020 (4281) PAGE 2 Signed ReportCBC W/O [id number] 15:31:00 Test Item Value Reference Range Interpretation [...] 9.70 fL 7.0-9.6 H MPV) BASIC METABOLIC [id number] 21:42:00 Test Item Value Reference Range Interpretation [...] 9.6 mg/dL 8.0-10.5 N CA) HEPATIC FUNCTION [id number] 21:42:00 Test Item Value Reference Range Interpretation [...] 114 IUnit/L 20-125 N code = ALKP) [id number] 21:42:00 Test Item Value Reference Range Interpretation Comments LIPASE (test code = LIP) 70 U/L 13-57 H [id number] 21:42:00 Test Item Value Reference Range Interpretation [...] by method. UA RFLX MICR CULT IF [id number] 21:37:00 Test Item Value Reference Range Interpretation [...] INDWELLING CATH (CEDENO)Cath Status: Under 72 hoursPROTHROMBIN [id number] 21:35:00 Test Item Value Reference Range Interpretation [...] (to prevent recurrent infar ct). THROMBOPLASTIN TIME [id number] 21:35:00 Test Item Value Reference Range Interpretation Comments THROMBOPLASTIN TIME 41.7 Seconds 25.0-39.5 H Therape utic Range: PARTIAL (test code = 50.4 - 88.3 Seconds PTT) Effective 09/04/2018 CBC W/AUTO [id number] 21:29:00 Test Item Value Reference Range Interpretation [...] = MDIFF) - CT ABD PELVIS W/O [id number] 20:49:00 [facility] : 1960 Sex: M Name: FAITH VANCE [facility] [place] : 1960 Age/S: 60 / M [address] [place] [address] Unit #: [id number] Loc: [place] [address] Phys: JabierGisel Epps [facility] Acct: [id number] Dis Date: Status: REG ER PHONE #: [phone] Exam Date: 08/23/20202024 FAX #: [phone] Reason: DIFFUSE ABDOMINAL PAIN EXAMS: CPT CODE: [id number] CT ABD PELVIS W/O CONT 03411 Clinical indication: Diffuse abdominal pain. Contrast - [...] 1 Signed Report (CONTINUED) Name: FAITH VANCE [facility] German Mejia : 1960 Age/S: 60 / M [address] [place] [address] Unit #: [id number] Loc: [place] [address] Phys: Gisel Eugene [facility] Acct: [id number] Dis Date: Status: REG ER PHONE #: [phone] Exam Date: 08/23/20202024 FAX #: [phone] Reason: DIFFUSE ABDOMINAL PAIN EXAMS: CPT CODE: [id number] CT ABD PELVIS W/O CONT 53249 <Continued> Peritoneum/Other: No extraluminal air. No extraluminal fluid. IMPRESSION: 1. No acute process in the abdomen and pelvis. 2. Hepatic steatosis. 3. Cholecystectomy. Mild prominence of the proximal common bile duct likely due to increased capacitance. 4. 2.3 x 2.2 cm simple right interpolar renal cyst. Tiny nonobstructive left renalcalculus. No hydronephrosis. 5. Normal appendix. 6. Posterior instrumented fusion from L4 through V9fzwlzr. 7. Small left pleural effusion. at 2048 Reported and signed by: Irene Katz M.D. 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 [facility] BASIC METABOLIC [id number] 08:00:00 Test Item Value Reference Range Interpretation [...] 9.9 mg/dL 8.0-10.5 N CA) CBC W/AUTO [id number] 07:08:00 Test Item Value Reference Range Interpretation [...] DIFF REQUIRED (test code NO = MDIFF) [id number] 05:21:00 Test Item Value Reference Range Interpretation Comments GLUBED (test code = 150 MG/DL 70-110 H Performe d by certified GLUBED) 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 [facility] [id number] 21:13:00 Test Item Value Reference Range Interpretation Comments GLUBED (test code = 129 MG/DL 70-110 H Performe d by certified GLUBED) 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 [facility] [id number] 16:48:00 Test Item Value Reference Range Interpretation Comments GLUBED (test code = 116 MG/DL 70-110 H Performe d by certified GLUBED) 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 [facility] [id number] 12:18:00 Test Item Value Reference Range Interpretation Comments GLUBED (test code = 136 MG/DL 70-110 H Performe d by certified GLUBED) 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 [facility] [id number] 12:18:00 Test Item Value Reference Range Interpretation Comments GLUBED (test code = 151 MG/DL 70-110 H Performe d by certified GLUBED) 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 [facility] CBC W/AUTO [id number] 07:32:00 Test Item Value Reference Range Interpretation [...] (test code NO = MDIFF) BASIC METABOLIC [id number] 07:29:00 Test Item Value Reference Range Interpretation [...] code = 9.0 mg/dL 8.0-10.5 N CA) [id number] 05:19:00 Test Item Value Reference Range Interpretation Comments GLUBED (test code = 135 MG/DL 70-110 H Performe d by certified GLUBED) 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 [facility] [id number] 20:31:00 Test Item Value Reference Range Interpretation Comments GLUBED (test code = 189 MG/DL 70-110 H Performe d by certified GLUBED) 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 [facility] [id number] 17:41:00 Test Item Value Reference Range Interpretation Comments GLUBED (test code = 140 MG/DL 70-110 H Performe d by certified GLUBED) 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 [facility] - CTA CHEST FOR [id number] 13:48:00 [facility] G[facility] RIVIERAName: FAITH VANCE : 1960 Sex: M Name: FAITH VANCE [facility] [place] : 1960 Age/S: 60 / M [address] [place] [address] Blvd Unit #: [id number] Loc: [place] [address] Phys: Gina Gonzalez EXHAUST WORKER Acct: [id number] Dis Date: Status: ADM IN PHONE #: [phone] Exam Date: 08/12/2020911 FAX #: [phone] Reason: CP, elevated D-dimer EXAMS: CPT CODE: [id number] [place] [address] PROCEDURE: CTA CHEST INDICATION: CP, elevated D-dimer; [...] be limited by early phase of PAGE 1Signed Report (CONTINUED) Name: FAITH VANCE [facility] : 1960 Age/S: 60 / M [address] [place] [address] Blvd Unit #: [id number] Loc: [place] [address] Phys: Gina Gonzalez NP Acct: [id number] Dis Date: Status: ADM IN PHONE #: [phone] Exam Date: 08/12/2020911 FAX #: [phone] Reason: CP, elevated D-dimer EXAMS: CPT CODE: [id number] [place] [address] <Continued> contrast enhancement. No acute abnormality demonstrated. MUSCULOSKELETAL: Healed median sternotomy. No acute skeletal abnormality. IMPRESSION: 1. Negative for pulmonary embolic disease within limitations noted. 2. Atherosclerosis. 3. Coronary arterial calcifications with prior coronary arterial stents and CABG. 4. Interstitial edema. No consolidation. 5. Small bilateral pleural effusions. SL: [id number] at 1348 Reported and signed by: Christiano Piña M.D. 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 [facility] CBC W/AUTO [id number] 09:17:00 Test Item Value Reference Range Interpretation [...] (test code NO = MDIFF) BASIC METABOLIC [id number] 08:28:00 Test Item Value Reference Range Interpretation [...] code = 8.3 mg/dL 8.0-10.5 N CA) [id number] 08:28:00 Test Item Value Reference Range Interpretation Comments PHOSPHOROUS (test code = PHOS) 3.6 MG/DL 2.5-4.9 N [id number] 08:28:00 Test Item Value Reference Range Interpretation Comments MAGNESIUM (test code = MAG) 1.94 mg/dL 1.80-2.40 N [id number] 07:16:00 Test Item Value Reference Range Interpretation Comments GLUBED (test code = 170 MG/DL 70-110 H Performe d by certified GLUBED) 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 [facility] [id number] 07:16:00 Test Item Value Reference Range Interpretation Comments GLUBED (test code = 137 MG/DL 70-110 H Performe d by certified GLUBED) 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 [facility] [id number] 17:01:00 Test Item Value Reference Range Interpretation Comments GLUBED (test code = 88 MG/DL 70-110 N Performe d by certified GLUBED) 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 [facility] [id number] 16:56:00 Test Item Value Reference Range Interpretation Comments ACT-ISTAT (test code 186 SEC 74-137 H Perform ed by certified = ACTI) 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 [facility] [id number]-[id number] 15:03:00 Test Item Value Reference Range Interpretation Comments ACT-ISTAT (test code 235 SEC 74-137 H Perform ed by certified = ACTI) 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 [facility] [id number] 11:33:00 Test Item Value Reference Range Interpretation Comments GLUBED (test code = 97 MG/DL 70-110 N Performe d by certified GLUBED) 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 [facility] [id number] 06:54:00 Test Item Value Reference Range Interpretation Comments GLUBED (test code = 136 MG/DL 70-110 H Performe d by certified GLUBED) 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 [facility] BASIC METABOLIC [id number] 06:00:00 Test Item Value Reference Range Interpretation [...] COMMENTS: To be done morning of Heart [id number] 06:00:00 Test Item Value Reference Range Interpretation Comments PHOSPHOROUS (test code = PHOS) 4.1 MG/DL 2.5-4.9 N COMMENTS: To be done morning of Heart [id number] 06:00:00 Test Item Value Reference Range Interpretation Comments MAGNESIUM (test code = MAG) 1.74 mg/dL 1.80-2.40 L COMMENTS: To be done morning of Heart CathTHROMBOPLASTIN TIME [id number] 05:55:00 Test Item Value Reference Range Interpretation Comments THROMBOPLASTIN TIME 37.9 Seconds 25.0-39.5 N Therape utic Range: PARTIAL (test code = 50.4 - 88.3 Seconds PTT) Effective 09/04/2018 CBC W/AUTO [id number] 05:44:00 Test Item Value Reference Range Interpretation [...] COMMENTS: To be done morning of Heart [id number] 05:44:00 Test Item Value Reference Range Interpretation Comments GLUBED (test code = 92 MG/DL 70-110 N Performe d by certified GLUBED) 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 [facility] HGBA1C%2020-08-10 17:22:00 Test Item Value Reference Range Interpretation Comments HGBA1C% (test code = HGBA1C%) 6.6 %A1C 4.8-6.0 H [id number] 17:17:00 Test Item Value Reference Range Interpretation Comments GLUBED (test code = 118 MG/DL 70-110 H Performe d by certified GLUBED) 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 COVID 19 Asymptomatic IH [id number] 11:35:00 Test Item Value Reference Range Interpretation [...] y tests. COMMENTS: If not done this yeifmirpcKUJZDGUY-[id number] 11:31:00 Test Item Value Reference Range Interpretation [...] titative results may babak y by method. [id number] 11:28:00 Test Item Value Reference Range Interpretation Comments D-DIMER (test 1089 ng/mlFEU See_Comment HH Critical resu lt called to code = Rima GERMAN) Nena.LAB.JJ1 at 04 1808/10/20Nurse r ead back result [...] to interpret this result as normal/abnormal . 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 [facility] B-TYPE NATRIURETIC [id number] 08:19:00 Test Item Value Reference Range Interpretation Comments B-TYPE NATRIURETIC PEPTIDE (test 508.0 PG/ML 0-100 H code = BNP) BASIC METABOLIC [id number] 08:11:00 Test Item Value Reference Range Interpretation [...] 9.1 mg/dL 8.0-10.5 N CA) HEPATIC FUNCTION [id number] 08:11:00 Test Item Value Reference Range Interpretation [...] 174 IUnit/L 20-125 H code = ALKP) [id number] 08:11:00 Test Item Value Reference Range Interpretation Comments MAGNESIUM (test code = MAG) 1.80 mg/dL 1.80-2.40 N [id number] 08:11:00 Test Item Value Reference Range Interpretation [...] may babak y by method. BASIC METABOLIC [id number] 08:09:00 Test Item Value Reference Range Interpretation [...] code = CA) mg/dL 8.0-10.5 HEPATIC FUNCTION [id number] 08:09:00 Test Item Value Reference Range Interpretation Comments TOTAL PROTEIN (test code = PROT) g/dL 6.4-8.2 ALBUMIN (test code = ALB) g/dL 3.4-5.0 BILIRUBIN TOTAL (test code = BILT) mg/dL 0.0-1.0 BILIRUBIN DIRECT (test code = BILD) MG/DL 0.0-0.30 SGOT/AST (test code = AST) IUnit/L 15-37 SGPT/ALT (test code = ALT) IUnit/L 30-65 ALKALINE PHOSPHATASE TOTAL (test IUnit/L 20-125 code = ALKP) [id number] 08:09:00 Test Item Value Reference Range Interpretation Comments MAGNESIUM (test code = MAG) mg/dL 1.80-2.40 [id number] 08:09:00 Test Item Value Reference Range Interpretation [...] results may babak y by method. PROTHROMBIN [id number] 08:06:00 Test Item Value Reference Range Interpretation [...] (to prevent recurrent infar ct). THROMBOPLASTIN TIME [id number] 08:06:00 Test Item Value Reference Range Interpretation Comments THROMBOPLASTIN TIME 44.5 Seconds 25.0-39.5 H Therape utic Range: PARTIAL (test code = 50.4 - 88.3 Seconds PTT) Effective 09/04/2018 CBC W/AUTO [id number] 07:58:00 Test Item Value Reference Range Interpretation [...] NO = MDIFF) - XR CHEST 1 [id number] 07:57:00 [facility] : 1960 Sex: M FAX: Todd Jacobo MD [phone] [place]: St: REG FAX: Martínez Dash NP [phone] Name: FAITH VANCE [facility] : 1960 Age/S: 60/M [address] [place] [address] Unit #: [id number] Loc: [place] [address] Phys: Martínez Dash NP Acct: [id number] Dis Date: Status: REG ER PHONE #: [phone] Exam Date: 08/10/2020752 FAX #: [phone] Reason: Chest Pain EXAMS: CPT CODE: [id number] XR CHEST 1 V 43811 Chest single view 08/10/2020 HISTORY: Chest pain. Comparison is made to 05/21/2018 FINDINGS: Pacemaker and midline sternotomy wires are stable. The lungs are hypoinflated. No consolidation or pleural effusion is present. No vascular congestion or interstitial edema is present. Heart size is mildly enlarged. Aorta is unchanged. IMPRESSION: Hypoinflated lungs. No acute cardiopulmonary process. SL:[id number] at 0757 Reported and signed by: Khai Kruse M.D. CC: Todd Jacobo MD; Martínez Dash NP Technologist: RT Ann(R) Trnscrd Date/Time/By: 08/10/2020 (0757) : By: [email or web address] Orig Print D/T: S: 08/10/2020 (0800) PAGE 1 Signed Report COMPREHENSIVE METABOLIC [id number] 18:02:00 Test Item Value Reference Range Interpretation [...] 50-136 H TOTAL (test code = ALKP) [id number] 18:02:00 Test Item Value Reference Range Interpretation Comments AMYLASE (test code = SERGIO) 82 Unit/L 25-115 N [id number] 18:02:00 Test Item Value Reference Range Interpretation Comments LIPASE (test code = LIP) 185 Unit/L 114-286 N COMPREHENSIVE METABOLIC [id number] 17:56:00 Test Item Value Reference Range Interpretation [...] TOTAL Unit/L 50-136 (test code = ALKP) [id number] 17:56:00 Test Item Value Reference Range Interpretation Comments AMYLASE (test code = SERGIO) Unit/L 25-115 [id number] 17:56:00 Test Item Value Reference Range Interpretation Comments LIPASE (test code = LIP) 185 Unit/L 114-286 N CBC W/AUTO [id number] 17:46:00 Test Item Value Reference Range Interpretation [...] CRITERIA MDIFF) - CT ABD PELVIS W/O [id number] 17:46:00 Name: FAITH VANCE [facility] : 1960 Age/S: 58 / M [address] Unit #: [id number] Loc: [place] [address] Phys: Nila Chester MD Acct: [id number] Dis Date: Status: REGER PHONE #: [phone] Exam Date: 01/03/2019 1733 FAX #: Reason: llq EXAMS: CPT: [id number] CT ABDPELVIS W/O CONT 07241 Location of dictation: B2 CT abdomen and [...] no focal findings or changes. IMPRESSION: 1. Compar sherlyn made to 09/14/2017. No acute findings or changes in the abdomen or pelvis. 2. Status post cholecystectomy. PAGE 1 Signed Report (CONTINUED) Name: FAITH VANCE [facility] : 1960 Age/S: 58 / M [address] Unit #: [id number] Loc: [place] [address] [phone] Dis Date: Status: REG ER PHONE #: [phone] Exam Date: 01/03/2019 1730 FAX #: Reason: llq EXAMS: CPT: [id number] CT ABD PELVIS W/O CONT 86603 <Continued> at 1746 Reported and signed by: Renuka Willett M.D. CC: Nila Chester MD Technologist:Tavon Jurado, RT(R)(CT)(MRI) CTDI: DLP: Trnscb Date/Time: 01/03/2019 (3902) JhonPXC Orig Print D/T: S: 01/03/2019 (2958) PAGE 2 Signed ReportBedside Vhhhkmj1544-11-92 11:47:00 Test Item Value Reference Range Interpretation Comments Bedside Glucose (test code = 86091-4) 155 70-120 H Meter ID: [id number] Medical Center Harker Heightsodium [id number] 08:31:00 Test Item Value Reference Range Interpretation Comments Sodium Level (test code = 2951-2) 139 136-145 [facility] Amcqi3384-04-97 08:31:00 Test Item Value Reference Range Interpretation Comments Potassium Level (test code = 2823-3) 4.0 3.5-5.1 [facility] TexasChloride Ldxhy9818-43-04 08:31:00 Test Item Value Reference Range Interpretation Comments Chloride Level (test code = 2075-0) 106 98-107 [facility] TexasCarbon Dioxide [id number] 08:31:00 Test Item Value Reference Range Interpretation Comments Carbon Dioxide Level (test code = 25 -29 2027-9) [facility] TexasAnion [id number] 08:31:00 Test Item Value Reference Range Interpretation Comments Anion Gap (test code = 68767-0) 12.0 8-16 [facility] TexasBlood Urea Ckllffxp6250-17-57 08:31:00 Test Item Value Reference Range Interpretation Comments Blood Urea Nitrogen (test code = 12-14 3094-0) [facility] TexasCreatinine2018-06-08 08:31:00 Test Item Value Reference Range Interpretation Comments Creatinine (test code = 2160-0) 0.72 0.72-1.25 [facility] TexasBUN/Creatinine Ghjuc1089-02-72 08:31:00 Test Item Value Reference Range Interpretation Comments BUN/Creatinine Ratio (test code = 10 11-13 3097-3) [facility] TexasEstimat Glomerular Filtration [id number] 08:31:00 Test Item Value Reference Range Interpretation Comments Estimat Glomerular Filtration Rate 60- >60 (test code = 62577-4) Ranges were taken from the National Kidney Disease Education Program and the National Kidney Foundation literature.Reference ranges:60 or greater: Jzpdfr14- 59 (for 3 consecutive months): Chronic kidneydisease 15 or less: Kidney failure [facility] TexasGlucose Wlbne8870-92-60 08:31:00 Test Item Value Reference Range Interpretation Comments Glucose Level (test code = UTZ2095) 195 74-118 H [facility] TexasCalcium Eajyn5540-28-27 08:31:00 Test Item Value Reference Range Interpretation Comments Calcium Level (test code = 64860-2) 9.0 8.4-10.2 [facility] TexasWhite Blood Hvbed4708-39-09 08:12:00 Test Item Value Reference Range Interpretation Comments White Blood Count (test code = 6690-2) 6.06 4.8-10.8 [facility] TexasRed Blood Glyla0451-35-53 08:12:00 Test Item Value Reference Range Interpretation Comments Red Blood Count (test code = 789-8) 4.22 4.3-5.7 L [facility] TexasHemoglobin2018-06-08 08:12:00 Test Item Value Reference Range Interpretation Comments Hemoglobin (test code = 18874-0) 12.5 14.0-18.0 L [facility] TexasHematocrit2018-06-08 08:12:00 Test Item Value Reference Range Interpretation Comments Hematocrit (test code = 4544-3) 36.2 38.2-49.6 L [facility] TexasMean Corpuscular Rwxoqe4920-00-70 08:12:00 Test Item Value Reference Range Interpretation Comments Mean Corpuscular Volume (test code = 85.8 81-99 787-2) [facility] TexasMean Corpuscular Suwhnqbqfe9374-96-68 08:12:00 Test Item Value Reference Range Interpretation Comments Mean Corpuscular Hemoglobin (test code 29.6 28-32 = 785-6) [facility] TexasMean Corpuscular Hemoglobin Skormxb9138-08-37 08:12:00 Test Item Value Reference Range Interpretation Comments Mean Corpuscular Hemoglobin Concent 34.5 31-35 (test code = 786-4) [facility] TexasRed Cell Distribution Nrisd3970-45-00 08:12:00 Test Item Value Reference Range Interpretation Comments Red Cell Distribution Width (test code 14.2 11.7-14.4 = 07708-0) [facility] TexasPlatelet Eyhne5411-48-13 08:12:00 Test Item Value Reference Range Interpretation Comments Platelet Count (test code = 777-3) 263 140-360 [facility] TexasNeutrophils (%) (Auto)2017-10-27 08:12:00 Test Item Value Reference Range Interpretation Comments Neutrophils (%) (Auto) (test code = 51.2 38.7-80.0 75408-1) [facility] TexasLymphocytes (%) (Auto)2017-10-27 08:12:00 Test [...] # (Auto) (test code = 2.0 1.0-3.2 14022-2) [facility] TexasMonocytes # (Auto)2017-10-27 08:12:00 Test [...] 0.0 0.0-0.1 [facility] TexasAbsolute Immature Granulocyte (obxl1583-61-90 08:12:00 Test Item Value Reference Range Interpretation Comments Absolute Immature Granulocyte (auto 0.03 0-0.1 (test code = Absolute Immature Granulocyte (auto) [facility] TexasCreatine Kinase [id number] 15:14:00 Test Item Value Reference Range Interpretation Comments Creatine Kinase MB (test code = 3.90 0-5.0 53231-4) [facility] TexasTroponin [id number] 15:14:00 Test Item Value Reference Range Interpretation Comments Troponin I (test code = TOF6994) 0.054 0-0.300 [facility] TexasCreatine Uopozl8983-14-51 15:07:00 Test Item Value Reference Range Interpretation Comments Creatine Kinase (test code = 2157-6) 297 30-200 H [facility] TexasHemoglobin A1c Sfcsund1468-74-59 08:04:00 Test Item Value Reference Range Interpretation Comments Hemoglobin A1c Percent (test code = 12.6 4.0-7.0 H Hemoglobin A1c Percent) [facility] TexasTriglycerides Osaml7404-63-63 06:57:00 Test Item Value Reference Range Interpretation Comments Triglycerides Level (test code = 200 0-149 H 2571-8) [facility] TexasCholesterol Fcjxk2173-93-78 06:57:00 Test Item Value Reference Range Interpretation Comments Cholesterol Level (test code = 2093-3) 239 0-199 H Less than 200 mg/dL Low Uers428 - 239 mg/dL Borderline Phnz260 mg/dl and greater High RiskAdventHealth Central TexasLDL Bleckmraznl5272-23-17 06:57:00 Test Item Value Reference Range Interpretation Comments LDL Cholesterol (test code = 2089-1) 164 60-130 H [facility] TexasHDL Yubqctjfgkh5965-77-65 06:57:00 Test Item Value Reference Range Interpretation Comments HDL Cholesterol (test code = 2085-9) 35 40-60 L [facility] TexasCholesterol/HDL Wyoig2995-75-44 06:57:00 Test Item Value Reference Range Interpretation Comments Cholesterol/HDL Ratio (test code = 6.8 3.9-4.7 H 9830-1) [facility] TexasUrine Phencyclidine Mfddoi2491-12-62 16:18:00 Test Item Value Reference Range Interpretation Comments Urine Phencyclidine Screen (test NEGATIVE NEGATIVE code = 42746-6) [facility] TexasUrine Amphetamines Fpkloo1354-68-16 16:18:00 Test Item Value Reference Range Interpretation Comments Urine Amphetamines Screen (test code NEGATIVE NEGATIVE = 74229-6) [facility] TexasUrine Methamphetamines Eugkub4345-40-95 16:18:00 Test Item Value Reference Range Interpretation Comments Urine Methamphetamines Screen (test NEGATIVE NEGATIVE code = Urine Methamphetamines Screen) [facility] TexasUrine Benzodiazepines Krqxjc4747-46-75 16:18:00 Test Item Value Reference Range Interpretation Comments Urine Benzodiazepines Screen (test NEGATIVE NEGATIVE code = 39571-1) [facility] TexasUrine Cocaine Vncrbn9943-98-70 16:18:00 Test Item Value Reference Range Interpretation Comments Urine Cocaine Screen (test code = NEGATIVE NEGATIVE 3398-5) [facility] TexasUrine Cannabinoids Nhrofo5595-77-17 16:18:00 Test Item Value Reference Range Interpretation Comments Urine Cannabinoids Screen (test code NEGATIVE NEGATIVE = 06145-7) THESE RESULTS ARE FOR MEDICAL TREATMENT ONLYTHIS REPORT CONTAINS UNCONFIRMED SCREENING RESULTS*POSITIVE RESULTS WILL BE CONFIRMED BY REFERENCE LAB UPON REQUEST CUT-OFFDRUG CLASS CONCENTRATION ng/mLAmphetamines 1000Methamphetamines 1000Cocaine 300Opiate 300Phencyclidine 25Cannabinoid 50Barbiturates 300Benzodiazepine 300Methadone 300[facility] HospitalUrine Methadone Mnmpfm5909-61-52 16:18:00 Test Item Value Reference Range Interpretation Comments Urine Methadone Screen (test code = NEGATIVE NEGATIVE 66041-0) THESE RESULTS ARE FOR MEDICAL TREATMENT ONLYTHIS REPORT CONTAINS UNCONFIRMED SCREENING RESULTS*POSITIVE RESULTS WILL BE CONFIRMED BY REFERENCE LAB UPON REQUEST CUT-OFFDRUG CLASS CONCENTRATION ng/mLAmphetamines 1000Methamphetamines 1000Cocaine Metabolite 300Opiate 300Phencyclidine 25Bnioxsxboba57Utqnrbsmiiwd 300Benzodiazepine 300Methadone 300[facility] HospitalUrine Opiates Ycenby3420-43-76 16:18:00 Test Item Value Reference Range Interpretation Comments Urine Opiates Screen (test code = NEGATIVE NEGATIVE 45489-5) [facility] TexasUrine Barbiturates Tyfmrw5493-79-22 16:18:00 Test Item Value Reference Range Interpretation Comments Urine Barbiturates Screen (test code NEGATIVE NEGATIVE = 939131951) [facility] TexasProthrombin Lhxx8017-09-81 14:13:00 Test Item Value Reference Range Interpretation Comments Prothrombin Time (test code = 5902-2) 13.6 11.9-14.5 [facility] TexasProthromb Time International Mfayf1433-67-32 14:13:00 Test Item Value Reference Range Interpretation Comments Prothromb Time International Ratio 1.13 (test code = 6301-6) Oral Anticoagulant Therapy INR Values:1. Low Intensity Therapy 1.5 - 2.02. Moderate Intensity Therapy 2.0 - 3.03. High Intensity Therapy(1) 2.5 - 3.54. High Intensity Therapy(2) 3.0 - 4.05. Panic Value INR > 5.0[facility] TexasActivated Partial Thromboplast Ugkm0798-66-83 14:13:00 Test Item Value Reference Range Interpretation Comments Activated Partial Thromboplast Time 27.6 23.8-35.5 (test code = 44429-1) [facility] TexasTotal Xqpmpchtl1833-67-65 14:10:00 Test Item Value Reference Range Interpretation [...] (test code = 1742-6) [facility] TexasTotal Pltvqna5172-18-26 14:10:00 Test Item Value Reference Range Interpretation Comments Total Protein (test code = 2885-2) 7.3 6.5-8.1 [facility] TexasAlbumin2018-06-04 14:10:00 Test Item Value Reference Range Interpretation Comments Albumin (test code = 1751-7) 4.0 3.5-5.0 [facility] TexasGlobulin2018-06-04 14:10:00 Test Item Value Reference Range Interpretation Comments Globulin (test code = 34085-6) 3.3 2.3-3.5 [facility] TexasAlbumin/Globulin Hskrl0861-05-24 14:10:00 Test Item Value Reference Range Interpretation Comments Albumin/Globulin Ratio (test code = 1.2 0.8-2.0 1759-0) [facility] TexasAlkaline Aiotxhieaih1616-09-95 14:10:00 Test Item Value Reference Range Interpretation Comments Alkaline Phosphatase (test code = 109 40-150 6768-6) [facility] TexasB-Type Natriuretic Gdjjrbe8152-95-99 14:10:00 Test Item Value Reference Range Interpretation Comments B-Type Natriuretic Peptide (test code = 92.8 0-100 60184-3) [facility] TexasAmylase Mihqt6369-88-87 14:10:00 Test Item Value Reference Range Interpretation Comments Amylase Level (test code = 1798-8) 126 25-125 H [facility] TexasLipase2018-06-04 14:10:00 Test Item Value Reference Range Interpretation Comments Lipase (test code = 3040-3) 98 8-78 H [facility] TexasD-Dimer Quantitative (PE/DVT)2017-10-23 14:02:00 Test Item Value Reference Range Interpretation Comments D-Dimer Quantitative (PE/DVT) (test 0.49 0.00-0.45 H code = 43609-4) [facility] TexasDirect Bddandvcu8764-56-30 13:47:00 Test Item Value Reference Range Interpretation Comments Direct Bilirubin (test code = 12429-2) 0.2 0.0-5.0 [facility] TexasMagnesium Nhttg9693-42-44 06:52:00 Test Item Value Reference Range Interpretation Comments Magnesium Level (test code = 73382-4) 1.5 1.3-2.1 [facility] TexasUrine JYT2424-64-73 05:09:00 Test Item Value Reference Range Interpretation Comments Urine WBC (test code = 5821-4) NONE 0-5 [facility] [facility] [place] [id number] 05:09:00 Test Item Value Reference Range Interpretation Comments Urine RBC (test code = 55418-2) NONE 0-5 [facility] [id number] 05:09:00 Test Item Value Reference Range Interpretation Comments Urine Bacteria (test code = 37032-0) NONE NONE [facility]helial [id number] 05:09:00 Test Item Value Reference Range Interpretation Comments Urine Epithelial Cells (test code = NONE NONE 98091-9) [facility] [id number] 04:46:00 Test Item Value Reference Range Interpretation Comments Urine Color (test code = 5778-6) YELLOW YELLOW [facility] [id number] 04:46:00 Test Item Value Reference Range Interpretation Comments Urine Clarity (test code = 06553-7) CLEAR CLEAR [facility] Specific [id number] 04:46:00 Test Item Value Reference Range Interpretation Comments Urine Specific Snook (test code = 1.010 1.010-1.025 5811-5) [facility] [id number] 04:46:00 Test Item Value Reference Range Interpretation Comments Urine pH (test code = 57741-5) 8 5-7 H [facility] Leukocyte [id number] 04:46:00 Test Item Value Reference Range Interpretation Comments Urine Leukocyte Esterase (test code NEGATIVE NEGATIVE = 5799-2) [facility] [id number] 04:46:00 Test Item Value Reference Range Interpretation Comments Urine Nitrite (test code = 62479-5) NEGATIVE NEGATIVE [facility] [id number] 04:46:00 Test Item Value Reference Range Interpretation Comments Urine Protein (test code = 5804-0) NEGATIVE NEGATIVE [facility] Glucose (UA)2017-03-05 04:46:00 Test Item Value Reference Range Interpretation Comments Urine Glucose (UA) (test code = NEGATIVE NEGATIVE 2349-9) [facility] [id number] 04:46:00 Test Item Value Reference Range Interpretation Comments Urine Ketones (test code = 74373-2) NEGATIVE NEGATIVE [facility] Qasugtxmmcno9885-12-04 04:46:00 Test Item Value Reference Range Interpretation Comments Urine Urobilinogen (test code = 0.2 0.2-1 92076-7) [facility] [id number] 04:46:00 Test Item Value Reference Range Interpretation Comments Urine Bilirubin (test code = 1978-6) NEGATIVE NEGATIVE [facility] [id number] 04:46:00 Test Item Value Reference Range Interpretation Comments Urine Blood (test code = 90758-7) 2+ NEGATIVE H [facility] [address] [address] Patient Name: FAITH VANCE MR #: [id number] : 1960 Age/Sex: 57/M Req #: [id number] Adm Physician: ALEXIS COX MD Ordered by: ALEXIS COX MD Report #: [id number] [facility] [place] [address] Procedure: [id number] CT/CTA BRAIN Exam Date: 10/24/17 Exam Time: [...] COPY TO: ALEXIS COX MDCT BRAIN WO [place] [address] PatientName: FAITH VANCE MR #: [id number] : 1960 Age/Sex: 57/M Req #: [id number] Adm Physician: Ordered by: KHAI WAHL MD Report #: [id number] Location: ER Room/Bed: __ Procedure: [id number] CT/CT BRAIN WO Exam Date: 10/23/17 Exam [...] COPY TO: KHAI WAHL V MDCTA CHEST [place] [address] PatientName: FAITH VANCE MR #: [id number] : 1960 Age/Sex: 57/M Req #: [id number] Adm Physician: Ordered by: KHAI WAHL MD Report #: [id number] Location: ER Room/Bed: __ Procedure: [id number] CT/CTA CHEST Exam Date: 10/23/17 Exam Time: [...] below limits set by [facility]).FINDINGS: Lines and Tubes: Pacemaker with [...] 10/23/17 1621 COPY TO: KHAI WAHL V [facility] SINGLE (PORTABLE) [place] [address] PatientName: FAITH VANCE MR #: [id number] : 1960 Age/Sex: 57/M Req #: [id number] Adm Physician: Ordered by: KHAI WAHL MD Report #: [id number] Location: ER Room/Bed: __ Procedure: [id number] DX/CHEST SINGLE (PORTABLE) Exam Date: 10/23/17 Exam [...] 10/23/17 1443 COPY TO: KHAI WAHL V [place] [address] PatientName: FAITH VANCE MR #: [id number] : 1960 Age/Sex: 56/M Req #: [id number] Adm Physician: Ordered by: JACQUELYN MONTES DE OCA MD Report #: [id number] Location: ER Room/Bed: Procedure: [id number] CT/CT BRAIN WO Exam Date: Exam Time: [...] MONTES DE OCA MDCT CERVICAL SPINE WO [place] [address] PatientName: FAITH VANCE MR #: [id number] : 1960 Age/Sex: 56/M Req #: [id number] Adm Physician: Ordered by: JACQUELYN MONTES DE OCA MD Report #: [id number] Location: ER Room/Bed: Procedure: [id number] CT/CT CERVICAL SPINE WO Exam Date: Exam [...] 6 COPY TO: JACQUELYN MONTES DE OCA [facility] (PORTABLE) [place] [address] PatientName: FAITH VANCE MR #: [id number] : 1960 Age/Sex: 56/M Req #: [id number] Adm Physician: Ordered by: JACQUELYN MONTES DE OCA MD Report #: [id number] Location: ER Room/Bed: Procedure: [id number] DX/CHEST SINGLE (PORTABLE) Exam Date: 04/04/17 Exam [...] OCA MDHIP RIGHT 2-3 VW (+/- PELVIS) [place] [address] PatientName: FAITH VANCE MR #: [id number] : 1960 Age/Sex: 56/M Req #: [id number] Adm Physician: Ordered by: JACQUELYN MONTES DE OCA MD Report #: [id number] Location: ER Room/Bed: Procedure: [id number] DX/HIP RIGHT 2-3 VW (+/- PELVIS) Exam [...] DE OCA MDSP LUMBAR, COMPLETE MIN 4VW [place] [address] PatientName: FAITH VANCE MR #: [id number] : 1960 Age/Sex: 56/M Req #: [id number] Adm Physician: Ordered by: JACQUELYN MONTES DE OCA MD Report #: [id number] Location: ER Room/Bed: Procedure: [id number] DX/SP LUMBAR, COMPLETE MIN 4VW Exam Date: [...] JACQUELYN MONTES DE OCA MDUS ABDOMEN COMPLETE [place] [address] PatientName: FAITH VANCE MR #: [id number] : 1960 Age/Sex: 56/M Req #: [id number] Adm Physician: NICHELLE PALACIOS MD Ordered by: SCOTT AMIN MD Report #: [id number] [facility] Room/Bed: [place] [address] Procedure: [id number] US/US ABDOMEN COMPLETE Exam Date: 03/08/17 Exam [...] on 03/08/17 1040 COPY TO: SCOTT AMIN [facility] SINGLE (PORTABLE) [place] [address] PatientName: FAITH VANCE MR #: [id number] : 1960 Age/Sex: 56/M Req #: [id number] Adm Physician: Ordered by: JACQUELYN MONTES DE OCA MD Report #: [id number] Location: ER Room/Bed: Procedure: [id number] DX/CHEST SINGLE (PORTABLE) Exam Date: 03/05/17 Exam [...] AM Dictated By: MARCO A TALBOT MD 0535 Transcribed By: ANDREE on 03/05/17 0535 COPY TO: JACQUELYN MONTES DE OCA MD
[2022-07-26 21:48] LABS: Albumin 2.6 g/dL (3.4-5.0); Bilirubin Direct 0.4 mg/dL (0-0.2); Bilirubin Total 0.7 mg/dL (0.2-1.0); Magnesium 2.1 mg/dL (1.6-2.4); Potassium 4.4 mmol/L (3.5-5.1); Protein, Total 6.6 g/dL (6.4-8.2); Troponin High Sensitivity 26.5 pg/mL (<58.9)
[2022-07-26] MEDS ORDERED: FUROSEMIDE 40 MG/4 ML VIAL ONE (22:21)
--- NOTE | 2022-07-27 13:02 | EKG ---
Test Date: 2022-07-26 Test Time: 21:54:26 [employer]: ANNEL MEASUREMENT RESULTS: Intervals: Rate: 93 VA: 174 QRSD: 162 QT: 420 QTc: 522 [place]: P: 47 VA: 174 QRS: -42 T: 127 INTERPRETIVE STATEMENTS: Electronic ventricular pacemaker Compared to ECG 07/25/2022 18:42:39 No significant changes Electronically Signed On 07-27-22 13:01:17 [employer]ARMACISTS by Kavin Keenan
--- NOTE | 2022-08-12 14:19 | EDPHYS ---
Physician Documentation [facility] Name: Ernie Rooney Age: 62 yrs Sex: Male : 1960 Arrival Date: 07/26/2022 Time: 20:49 Bed 18 Private MD: ED Physician Anne-Marie Martin HPI: 07/26 21:36 This 62 yrs old Male presents to ER via EMS with complaints of Chest Pain. sp3 21:36 62-year-old male with extensive past medical history including CAD, CHF, CVA to the ED sp3 again for chest pain. Patient states that he has had off-and-on chest pain throughout the entire day greater than 6 hours. Patient is on multiple presentations to the ED for similar symptoms in the past and patient is familiar to me and I have gone through his past medical history extensively. His symptoms are his typical chest pain pattern. ROS is negative for headache, neck pain, shortness of breath, back pain, abdominal pain, rash, or any other signs or symptoms.. Historical: - Allergies: 21:05 Nitroglycerin; ha1 - PMHx: 21:05 Arthritis; Back pain; CAD; CHF; CVA; Depression; Fibromyalgia; GERD; Hyperlipidemia; ha1 Hypertensive disorder; Hypothyroidism; IDDM; Left sided weakness from previous CVA; Myocardial infarction; Pacemaker; - PSHx: 21:05 bilat BKA's; bypass; CABG; ha1 - Immunization history:: Adult Immunizations unknown. - Social history:: Smoking status: unknown. ROS: 21:37 Constitutional: Negative for fever, chills, and weight loss, Eyes: Negative for injury, sp3 pain, redness, and discharge, Neck: Negative for injury, pain, and swelling, Respiratory: Negative for shortness of breath, cough, wheezing, and pleuritic chest pain, Abdomen/GI: Negative for abdominal pain, nausea, vomiting, diarrhea, and constipation, Back: Negative for injury and pain, MS/Extremity: Negative for injury and deformity, Skin: Negative for injury, rash, and discoloration, Neuro: Negative for headache, weakness, numbness, tingling, and seizure, Psych: Negative for depression, anxiety, suicide ideation, homicidal ideation, and hallucinations, Allergy/Immunology: Negative for hives, rash, and allergies, Endocrine: Negative for neck swelling, polydipsia, polyuria, polyphagia, and marked weight changes. 21:37 All other systems are negative. Exam: 21:37 Constitutional: This is a well developed, well nourished patient who is awake, alert, sp3 and in no acute distress. Head/Face: Normocephalic, atraumatic. ENT: Nares patent. No nasal discharge, no septal abnormalities noted. External auditory canals are clear. Oropharynx with no redness, swelling, or masses, exudates, or evidence of obstruction, uvula midline. Mucous membranes moist. Neck: Trachea midline, no thyromegaly or masses palpated, and no cervical lymphadenopathy. Supple, full range of motion without nuchal rigidity, or vertebral point tenderness. No Meningismus. Chest/axilla: Normal chest wall appearance and motion. Nontender with no deformity. No lesions are appreciated. Cardiovascular: Regular rate and rhythm with a normal S1 and S2. No gallops, murmurs, or rubs. Normal PMI, no JVD. No pulse deficits. Respiratory: Lungs have equal breath sounds bilaterally, clear to auscultation and percussion. No rales, rhonchi or wheezes noted. No increased work of breathing, no retractions or nasal flaring. Abdomen/GI: Soft, non-tender, with normal bowel sounds. No distension or tympany. No guarding or rebound. No evidence of tenderness throughout. Back: No spinal tenderness. No costovertebral tenderness. Full range of motion. Skin: Warm, dry with normal turgor. Normal color with no rashes, no lesions, and no evidence of cellulitis. Neuro: Awake and alert, GCS 15, oriented to person, place, time, and situation. Cranial nerves II-XII grossly intact. Motor strength 5/5 in all extremities. Sensory grossly intact. Cerebellar exam normal. Normal gait. 21:56 ECG was reviewed by the Attending Physician. EKG demonstrates paced rhythm at 93 bpm sp3 with adequate ventricular capture. Vital Signs: 21:02 BP 136 / 82; Pulse 88; Resp 18 S; Temp 97.7(O); Pulse Ox 97% on R/A; Weight 66.68 kg; ha1 Pain 9/10; 21:50 BP 143 / 81; Pulse 92; Resp 18 S; Pulse Ox 96% on R/A; ha1 22:50 BP 145 / 75; Pulse 85; Resp 18 S; Pulse Ox 96% on R/A; ha1 21:02 Pain Scale: Adult ha1 MDM: 21:22 Patient medically screened. sp3 21:39 Data reviewed: vital signs, nurses notes, EMS record, old medical records, lab test sp3 result(s), EKG, radiologic studies. ED course: 62-year-old male with chest pain well-known to the emergency department. We will evaluate cardiac enzymes, laboratory values, EKG, chest x-ray and disposition accordingly. I do not believe patient has acute coronary syndrome at this time and he should be able to be discharged safely. He is resting comfortably no acute distress with normal vital signs currently.. 21:59 ED course: Laboratory values reviewed and demonstrate no significant abnormality other sp3 than his BNP at 5000. Old BNP level reviewed and this is in line with his prior presentations. We will give Lasix 40 mg IV and discharge patient home to PCP and cardiology follow-up.. 07/26 21:00 Order name: Basic Metabolic Panel; Complete Time: 21:58 sp3 07/26 21:00 Order name: CBC with Diff; Complete Time: 21:58 sp3 07/26 21:00 Order name: LFT's; Complete Time: 21:58 sp3 07/26 21:00 Order name: Magnesium; Complete Time: 21:58 sp3 07/26 21:00 Order name: NT PRO-BNP; Complete Time: 21:58 sp3 07/26 21:00 Order name: PT-INR; Complete Time: 21:58 sp3 07/26 21:00 Order name: Troponin HS; Complete Time: 21:58 sp3 07/26 21:00 Order name: XRAY Chest (1 view); Complete Time: 21:58 sp3 07/26 21:00 Order name: EKG; Complete Time: 21:00 sp3 07/26 21:00 Order name: Cardiac monitoring; Complete Time: 21:55 sp3 07/26 21:00 Order name: EKG - Nurse/Tech; Complete Time: 21:55 sp3 07/26 21:00 Order name: IV Saline Lock; Complete Time: 21:55 sp3 07/26 21:00 Order name: Labs collected and sent; Complete Time: 21:56 sp3 07/26 21:00 Order name: O2 Per Protocol; Complete Time: 21:56 sp3 07/26 21:00 Order name: O2 Sat Monitoring; Complete Time: 21:56 sp3 Administered Medications: 22:10 Drug: Furosemide IVP 40 mg Route: IVP; Site: left forearm; ha1 22:30 Follow up: Response: No adverse reaction ha1 Disposition Summary: 07/26/22 22:01 Discharge Ordered Location: Home sp3 Condition: Stable sp3 Diagnosis - Acute on chronic systolic (congestive) heart failure sp3 Followup: sp3 - With: Private Physician - When: Upon discharge from the Emergency Department - Reason: Continuance of care Discharge Instructions: - Discharge Summary Sheet sp3 - Heart Failure, Diagnosis, Toco-xn-Yhvi sp3 Forms: - Medication Reconciliation Form sp3 - Thank You Letter sp3 - Antibiotic Education sp3 - Prescription Opioid Use sp3 Signatures: Dispatcher [employer] Anne-Marie Matt MD MD sp3 Lucy Cat RN RN ha1
--- NOTE | 2022-08-12 14:19 | ER ---
Nurse's Notes [facility] Name: Ernie Rooney Age: 62 yrs Sex: Male : 1960 Arrival Date: 07/26/2022 Time: 20:49 Bed 18 Private MD: Diagnosis: Acute on chronic systolic (congestive) heart failure Presentation: 07/26 21:02 Chief complaint: EMS states: 62 year old started to have chest pain four hours ago. ha1 self medicated 3 X81 mg Aspirin. Coronavirus screen: Vaccine status:. Ebola Screen: No symptoms or risks identified at this time. Initial Sepsis Screen: Does the patient meet any 2 criteria? No. Patient's initial sepsis screen is negative. Does the patient have a suspected source of infection? No. Patient's initial sepsis screen is negative. Risk Assessment: Do you want to hurt yourself or someone else? Patient reports no desire to harm self or others. Onset of symptoms was July 26, 2022. 21:02 Method Of Arrival: EMS: [facility] ha1 21:02 Acuity: TONE 3 ha1 Triage Assessment: 20:50 General: Appears uncomfortable, Behavior is calm, cooperative. Pain: Complains of pain ha1 in chest pain Pain does not radiate. Pain currently is 9 out of 10 on a pain scale. Quality of pain is described as pressure, throbbing. EENT: No signs and/or symptoms were reported regarding the EENT system. Neuro: Level of Consciousness is awake, alert, obeys commands, Oriented to person, place, time, situation. Cardiovascular: Capillary refill < 3 seconds Patient's skin is warm and dry. Respiratory: Airway is patent Respiratory effort is even, unlabored, Respiratory pattern is regular, symmetrical. 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 Range of motion: intact in all extremities. 20:50 GI: No signs and/or symptoms were reported involving the gastrointestinal system. ha1 Abdomen is round obese. Historical: - Allergies: 21:05 Nitroglycerin; ha1 - PMHx: 21:05 Arthritis; Back pain; CAD; CHF; CVA; Depression; Fibromyalgia; GERD; Hyperlipidemia; ha1 Hypertensive disorder; Hypothyroidism; IDDM; Left sided weakness from previous CVA; Myocardial infarction; Pacemaker; - PSHx: 21:05 bilat BKA's; bypass; CABG; ha1 - Immunization history:: Adult Immunizations unknown. - Social history:: Smoking status: unknown. Screenin:50 [facility] ED Fall Risk Assessment (Adult) History of falling in the last 3 months, ha1 including since admission No falls in past 3 months (0 pts) Confusion or Disorientation No (0 pts) Intoxicated or Sedated No (0 pts) Impaired Gait Yes (1 pt) Mobility Assist Device Used Yes (1 pt) Altered Elimination No (0 pt) Score/Fall Risk Level 0 - 2 = Low Risk Oriented to surroundings, Maintained a safe environment, Educated pt \T\ family on fall prevention, incl call for assistance when getting out of bed. Abuse screen: Denies threats or abuse. Denies injuries from another. Nutritional screening: No deficits noted. Tuberculosis screening: No symptoms or risk factors identified. Assessment: 20:50 Reassessment: see triage assessment. ha1 21:50 Reassessment: Patient and/or family updated on plan of care and expected duration. Pain ha1 level reassessed. Patient is alert, oriented x 3, equal unlabored respirations, skin warm/dry/pink. 22:40 Reassessment: awaiting on transportation. ha1 Vital Signs: 21:02 BP 136 / 82; Pulse 88; Resp 18 S; Temp 97.7(O); Pulse Ox 97% on R/A; Weight 66.68 kg; ha1 Pain 9/10; 21:50 BP 143 / 81; Pulse 92; Resp 18 S; Pulse Ox 96% on R/A; ha1 22:50 BP 145 / 75; Pulse 85; Resp 18 S; Pulse Ox 96% on R/A; ha1 21:02 Pain Scale: Adult ha1 ED Course: 20:49 Patient arrived in ED. bb 20:50 Arm band placed on right wrist. ha1 20:50 Patient has correct armband on for positive identification. Allergy band placed. Placed ha1 in gown. Bed in low position. Call light in reach. Side rails up X2. 20:50 Client placed on continuous cardiac and pulse oximetry monitoring. NIBP monitoring ha1 applied. 20:50 Patient maintains SpO2 saturation greater than 95% on room air. ha1 20:50 Maintain EMS IV. Dressing intact. Good blood return noted. Site clean \T\ dry. Gauge \T\ lockett 1 site: 20 on left forearm . 20:59 Anne-Marie Martin MD is Attending Physician. sp3 21:01 Lucy Cat, RN is Primary Nurse. ha1 21:05 Triage completed. ha1 21:31 XRAY Chest (1 view) In Process Unspecified. EDMS 23:09 No provider procedures requiring assistance completed. IV discontinued, intact, ha1 bleeding controlled, No redness/swelling at site. Pressure dressing applied. Administered Medications: 22:10 Drug: Furosemide IVP 40 mg Route: IVP; Site: left forearm; ha1 22:30 Follow up: Response: No adverse reaction ha1 Medication: 23:10 VIS not applicable for this client. ha1 Outcome: 22:01 Discharge ordered by . sp3 23:10 Discharged to home via ambulance. ha1 23:10 Condition: stable 23:10 Discharge instructions given to patient, Instructed on discharge instructions, follow up and referral plans. Demonstrated understanding of instructions, follow-up care. 23:11 Patient left the ED. ha1 Signatures: Dispatcher [employer] EDMT Cathleen Harvey RN RN bb Anne-Marie Martin MD MD sp3 Lucy Cat, SHEBA RN ha1
== END 2022-07-26 23:11 | disposition home or self-care (01) ==
LOC: ER 20:47
DX: I50.23 Acute on chronic systolic (congestive) heart failure (principal); I10 Essential (primary) hypertension; Z95.1 Presence of aortocoronary bypass graft; Z95.0 Presence of cardiac pacemaker; Z86.73 Personal history of transient ischemic attack (TIA), and cerebral infarction without residual deficits; Z88.8 Allergy status to other drugs, medicaments and biological substances
CPT/HCPCS: 93005; 85025; 80048; 36415; 83735; 85610; 80076; 84484; 83880; 71045; 96374; 99284; J1940